=== PATIENT | female | born 1975 | race Caucasian/White ===

== ENCOUNTER 2020-03-05 18:36 | Emergency (ER) | payer MEDICAID, SELFPAY ==
[2020-03-05 18:37] VITALS: BP 138/85; PULSE 87; RESP 22; TEMP 36.9; BMI 37.5
--- NOTE | 2020-03-05 18:52 | CT_ITS ---
STUDY: CT BRAIN WITHOUT CONTRAST REASON FOR EXAM: Female, 44 years old. FALL, LAC TO POSTERIOR HEAD RADIATION DOSAGE (If Supplied By Facility): CTDIvol = ( 44.99 ) mGy, DLP = ( 762.36 ) mGycm TECHNIQUE: Transaxial CT imaging of the brain was performed without administration of intravenous contrast material. Individualized dose optimization techniques were used for this CT. COMPARISON: 08/01/2016. FINDINGS: Normal soft tissue structures. Normal calvarium. There is mild cerebral atrophy with widening of the extra-axial spaces and ventricular dilatation. There are areas of decreased attenuation within the white matter tracts of the supratentorial brain, consistent with microvascular disease changes. There is no intracranial hemorrhage. There are no findings of an acute ischemic infarction. Mild mucosal thickening in the left maxillary sinus. CT/Brain/Head without Contrast IMPRESSION: 1. Mild microvascular ischemic changes. Atrophy. Electronically Signed: Jerrica Perez MD at 20:05 EDT Tel , Service support ,
--- NOTE | 2020-03-05 18:52 | CT_ITS ---
STUDY: CT CERVICAL SPINE WITHOUT CONTRAST REASON FOR EXAM: Female, 44 years old. FALL, LAC TO POSTERIOR HEAD RADIATION DOSAGE (If Supplied By Facility): CTDIvol = ( 28.80 ) mGy, DLP = ( 580.85 ) mGycm TECHNIQUE: High resolution transaxial imaging was performed without contrast material. Sagittal and coronal images were reconstructed. Individualized dose optimization techniques were used for this CT. COMPARISON: None FINDINGS: Normal craniovertebral junction. Normal anterior atlantoaxial articulation. Normal odontoid process. Normal cervical lordosis. Normal vertebral bodies and posterior osseous elements. C2-3: Normal endplates. Normal disc height and morphology. Normal central canal and intervertebral neuroforamina. C3-4: Normal endplates. Normal disc height and morphology. Normal central canal and intervertebral neuroforamina. C4-5: Normal endplates. Normal disc height and morphology. Normal central canal and intervertebral neuroforamina. C5-6: Normal endplates. Normal disc height and morphology. Normal central canal and intervertebral neuroforamina. C6-7: Normal endplates. Normal disc height and morphology. Normal central canal and intervertebral neuroforamina. C7-T1: Normal endplates. Normal disc height and morphology. Normal central canal and intervertebral neuroforamina. Normal visualized soft tissue structures. CT/Spine Cervical without Contras IMPRESSION: Normal unenhanced CT examination of the cervical spine. Electronically Signed: Jerrica Perez MD at 20:31 EDT Tel , Service support ,
[2020-03-05] MEDS: Diphth,Pertuss(Acell),Tet Vac 0.5 ML Vial IM (19:04)
[2020-03-05] MEDS: Lidocaine/Epi/Tetracaine 50 ML 1 APPLIC TOPICAL (19:05)
--- NOTE | 2020-03-05 19:10 | RAD_ITS ---
STUDY: X-RAY - LEFT SHOULDER REASON FOR EXAM: Female, 44 years old. fall in bathroom, left shoulder pain TECHNIQUE: 2 view(s) of the shoulder. COMPARISON: None. FINDINGS: Normal glenohumeral articulation. Normal acromioclavicular joint. Normal acromion. Normal humeral head and visualized proximal humerus. The soft tissue structures are unremarkable. Normal visualized pulmonary apex. RAD/Shoulder min 2 Views IMPRESSION: Normal x-ray examination of the shoulder. Electronically Signed: Jerrica Perez MD at 19:30 EDT Tel , Service support ,
--- NOTE | 2020-03-05 20:36 | ED.VISSUMM ---
- ER Visit Summary Date of Service: 03/05/20 Chief Complaint: Fall History of Present Illness: The patient is a 44 F patient fell at her assisted living when her walker caught on something. She fell backwards and hit her head. She did not lose consciousness. She denies blood thinners. She also reports left shoulder pain. She was having pain before she fell, but it is now worse. Denies weakness or numbness. She is unsure of her tetanus status but does report a laceration to the back of her head. No other injuries or complaints. Physical Examination: Afebrile and vital signs unremarkable. She has a 1 cm laceration to the right occipital parietal scalp. Otherwise head and neck atraumatic. Cranial nerves grossly intact. Heart regular. Lungs clear. Abdomen soft. Extremities atraumatic with good strength, sensation, range of motion. Test Results: CT brain and cervical spine showed chronic changes. Nothing acute. X-ray of her shoulder was unremarkable. Emergency Department Course and Treatment: Tetanus updated. Patient refused kenny. She was treated with topical lidocaine. The wound was irrigated and explored. This was superficial. It was full-thickness however. Closed with 1 simple interrupted suture. Patient was given wound care instructions and will be discharged back to her assisted living. Follow-up in 10 to 14 days for suture removal. Return sooner for any complications or any new issues. Treatment Plan: As above Disposition: Discharge Impression: Close head injury, laceration, simple 1 cm, left shoulder injury This note was generated with [employer] dictation software. It may contain incorrect words, spelling, and punctuation that were not noted in review of the chart prior to signing ED Disposition - Plan for ED Patient: Referrals: Care Physician,No Primary [Primary Care Provider] -
--- NOTE | 2020-03-05 20:39 | ED.DEP ---
ED Disposition - Plan for ED Patient: Instructions: ED Laceration All Closures Additional Instructions: follow up with your doctor in 10-14 days for suture removal. return sooner for any problems
[2020-03-05 21:07] VITALS: BP 129/78; PULSE 79; RESP 17; O2SAT 97
--- NOTE | 2020-03-05 21:12 | ED.RN ---
REPORT GIVEN TO NICKIE JO [facility]
--- OUTSIDE RECORDS SUMMARY | 2020-07-30 14:04 | XMS RPT_ITS | CCD ---
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 administered intrave nously without immediate complication. FINDINGS: LOWER CHEST: Evaluation of the visualized lung bases demonstrates scarrin g and/or atelectasis at the lung bases bilaterally. The heart is with in normal limits for size. ABDOMEN: LIVER: The liver is within normal limits for appearance, without ev idence of focal masses. BILE DUCTS: No definite intra or extrahepatic biliary dilatation is iden tified. GALLBLADDER: The gallbladder is nondilated. No definite calcified gallsto corey are seen. PANCREAS: The pancreas is within normal limits for appearance, without evidence of focal masses. SPLEEN: The spleen is within normal limits for size. No focal spleni c mass is seen. ADRENAL GLANDS: No definite adrenal nodules or masses are seen bilaterally. KIDNEYS AND URETERS: There is no hydronephrosis, hydroureter or renal/ ureteral c alculus identified bilaterally. No definite focal renal mass is seen . PELVIS: BLADDER: The urinary bladder is grossly unremarkable for CT appearanc e. REPRODUCTIVE ORGANS: A T-shaped intrauterine device is identified in situ within the endometrial canal. The uterus and ovaries are otherwise sally sly unremarkable for CT appearance. BOWEL: A LINX device is seen at the gastroesophageal junction. The colon and small bowel are within normal limits for course, caliber and appearance, without evidence of wall thickening or obstructi on. The appendix is decompressed. No CT evidence of acute diverticul itis or appendicitis is seen. VESSELS: The abdominal aorta is within normal limits for course, raul yamilet and appearance, without evidence of aneurysm. PERITONEUM/RETROPERITONEUM/LYMPH NODES: There is no free intraperitoneal air or free fluid identifie d. No gross mesenteric or retroperitoneal lymphadenopathy is ident ified. BONE AND SOFT TISSUE: There is no evidence of acute fracture identified. No eviden ce of abdominal wall mass or hernia is identified. IMPRESSION: 1. Postoperative changes, as above. 2. No evidence of bowel obstruction, free intraperitoneal ai r or abnormal intra-abdominal fluid collection. VALPROIC ACID 80 50 - 100 ug/mL Normal 10-25-2019 [facility] ([id number]) Comment: Performed By: #### VALPR ### [address] [address] us gallbladder on 2 US GALLBLADDER Normal 10-25-2019 [facility] Patient Name: REEMA MOTTA [facility] ([id number]) STUDY: US GALLBLADDER; 10/25/2019 3:58 pm INDICATION: R upper quad pain. COMPARISON: None. ACCESSION NUMBER(S): [id number] ORDERING CLINICIAN: TENISHA LANE TECHNIQUE: Grayscale and color Doppler ultrasound evaluation of the rig ht upper quadrant. FINDINGS: LIVER: Normal size. Increased echogenicity in the liver suggestive of fatty infiltration. Portions of the liver were obscured. GALLBLADDER: No cholelithiasis. No wall thickening or pericholecystic flu id. No focal tenderness is reported during scanning directly over t he gallbladder. BILIARY TREE: No intra- or extrahepatic biliary dilatation. The extrahepat ic bile duct measures 6 mm. PANCREAS: Pancreas or nearly completely obscured by overlying bowel ga s. The unobscured pancreas are negative. RIGHT KIDNEY: Normal size, no hydronephrosis. PERITONEUM: No ascites. IMPRESSION: No gallstones. No intra or extrahepatic biliary ductal dilat ation. Fatty infiltration liver. Portions of the liver were obscure d. Electronically signed by: ROXIE CARDENAS MD urinalysis on 10-25 Appearance (U) Canceled Normal 10-25-2019 [facility] ([id number]) Comment: Order Comment: TEST URINALYS IS WAS CANCELLED, 10/25/2019 18:08 DISCHARGED. Performed By: #### UA ####[place] [id number] ASCORBIC ACID Canceled Normal 10-25-2019 [facility] ([id number]) Comment: Order Comment: TEST URINALYS IS WAS CANCELLED, 10/25/2019 18:08 DISCHARGED. Result Comment: Concentratio ns > = 20 mg/dL of ascorbic acid can be expected to cause strong interference in the reaction s testing for glucose, nitrite and blood. It is recommended to discontinue V itamin C administration and retest in 10 hours. Performed By: #### UA ####[address] [address] Bilirubin (U) [Mass/Vol] Canceled Normal 10-25 [facility] ([id number]) Comment: Order Comment: TEST URINALYS IS WAS CANCELLED, 10/25/2019 18:08 DISCHARGED. Performed By: #### UA ####[address] [address] BLOOD Canceled Normal 10-25-2019 [facility] ([id number]) Comment: Order Comment: TEST URINALYS IS WAS CANCELLED, 10/25/2019 18:08 DISCHARGED. Performed By: #### UA ####[address] [address] Color (U) Canceled Normal 10-25-2019 [facility] ([id number]) Comment: Order Comment: TEST URINALYS IS WAS CANCELLED, 10/25/2019 18:08 DISCHARGED. Performed By: #### UA ####[address] [address] Glucose [Mass/Vol] Canceled Normal 10-25-2019 [facility] ([id number]) Comment: Order Comment: TEST URINALYS IS WAS CANCELLED, 10/25/2019 18:08 DISCHARGED. Performed By: #### UA ####[address] [address] Ketones Ql (U) Canceled Normal 10-25-2019 [facility] ([id number]) Comment: Order Comment: TEST URINALYS IS WAS CANCELLED, 10/25/2019 18:08 DISCHARGED. Performed By: #### UA ####[address] [address] Leukocyte esterase Test Canceled Normal 2019 [facility] strip Ql (U) ([id number]) Comment: Order Comment: TEST URINALYS IS WAS CANCELLED, 10/25/2019 18:08 DISCHARGED. Performed By: #### UA ####[address] [address] Nitrite Ql (U) Canceled Normal 10-25-2019 [facility] ([id number]) Comment: Order Comment: TEST URINALYS IS WAS CANCELLED, 10/25/2019 18:08 DISCHARGED. Performed By: #### UA ####[address] [address] pH (Bld) Canceled Normal 10-25-2019 [facility] ([id number]) Comment: Order Comment: TEST URINALYS IS WAS CANCELLED, 10/25/2019 18:08 DISCHARGED. Performed By: #### UA ####[address] [address] Protein (U) [Mass/Vol] Canceled Normal 020 [facility] ([id number]) Comment: Order Comment: TEST URINALYS IS WAS CANCELLED, 10/25/2019 18:08 DISCHARGED. Performed By: #### UA ####[address] [address] Specific gravity (U) [Rel Canceled Normal [facility] density] ([id number]) Comment: Order Comment: TEST URINALYS IS WAS CANCELLED, 10/25/2019 18:08 DISCHARGED. Performed By: #### UA ####[address] [address] Urobilinogen Qn (U) Canceled Normal 10-25-2019 [facility] ([id number]) Comment: Order Comment: TEST URINALYS IS WAS CANCELLED, 10/25/2019 18:08 DISCHARGED. Performed By: #### UA ####[address] [address] triage - ed on 2019 Triage - ED Quick Triage: Normal 10-25-2019 [facility] Are You no H ealth ([id number]) Have You Given In The Last 6 Weeksno Are You Currently Breastfeedingno Chart Review: CHIEF COMPLAINT REEMA MOTTA is a Female patient with a grace f complaint of abdominal pain (patient complains of right side abdominal pain for 1 day. H as history of gallbladder problems. Patient also had vomiting, denies urin xavier signs/symptoms.). Triage Date/Time: 25-Oct-2019 13:50 Pain Rating (0-10): 9 = Severe Pain location: right abdominal pain Vital Signs: Temperature: 98.9F ( 37.2C) taken oral Blood Pressure: 115/88 Mean: Heart Rate: 99 Respiratory Rate: 16 Pulse Oximetry: 95% on room air, no respiratory suppor t. Height: 4 feet 8.00 inches. 142.2 CM Weight: 150.0 pounds. Calculated 68.0 kg. (stated) Calculated BMI (kg/m2): 33.628 Calculated BSA (m2) 1.64 Codie Coma Scale: Best Eye Response: (E4) spontaneous Best Motor Response: (M6) obeys commands Best Verbal Response: (V5) oriented Prole Score: 15 Cough lasting greater than 3 weeks: no Travel outside of [facility]: no Allergies: yes Patient has homicidal thoughts: no RUSS: 3 Symptoms Are POSITIVE For: vomiting. Symptoms Are Negative For: anorexia, constipation, diaphoresis, diarrhea, distent ion, fever, nausea and rectal blood. Risk Screens Suicide Risk Screen In the Past Month: Have you wished you were or wished y ou could go to sleep and not wake up no In the Past Month: Have you had any actual thoughts of killi ng yourself no In Your Lifetime: Have you ever done anything, started to do anything, or prepared to do anything to end your life no Darby Fall Scale Screening Has the patient fallen before (or is the patient in the ED as a result of a fall) has not had a fall Does the patient have an impaired gait does not have impaire d gait Is the patient cognitively impaired not cognitively impaired Interventions: Darby Fall Interventions: *patient oriented to [employer] dings and call system, * patient/family falls education completed and documented, *patients fall status communicated during bedside handoff, *whiteboard updated, *mode of toileting discussed with patient, *bed in low position with brakes locked, *call light in reach, * non-skid footwear PAIN Pain Scale Used: JANETTE Pain Rating (0-10): 9 = Severe ARRIVAL INFORMATION Means of Arrival: Ambulatory Mode of Arrival: private vehi jordan Arrival From: detention facility Accompanied By: self Language: Spoken Language Preferred: Burundian Reading Language Preferre d: Burundian PRIMARY ASSESSMENT REEMA MOTTA's primary assessment is Within Normal Limits. The airway is open and patent. Breathing spontaneous and unlab ored with clear breath sounds bilaterally. Circulation is normal with good periphera l pulses. Skin is warm and dry and color is normal for race. Past Medical History: Past Medical History Reviewedyes Electronic Signatures: Rosa Bernal (SUPV) (Signed 25-Oct-2019 13:53) Authored: Triage, Past Medical History Last Updated: 25-Oct-2019 13:53 by Rosa Bernal (SUPV) risk screen - adult emergency on 2019-10-25 Risk Screen - Preferred Language: Normal 2019 [facility] Adult Emergency Preferred Language: [facility] Preferred Language for Discussing Health Care (patient/desig nee)Burundian ([id number]) Advanced Directives: Advance Directive/DNRno Family Violence Adult: Abuse Screen: Are you or have you been threatened or abused physically, em otionally, or sexually by anyoneno Learning Assessment (Patient): Learning Assessment (Patient): Patient is Able to be Assessed for Learningyes Factors Influencing Readiness to Learnnone Factors that Impact Ability to Learnnone Devices/Methods Used to Communicatenone Learning Preferencesverbal instruction; written material Cultural Considerationsnone Developmental Considerationsnone Samaritan Considerationsnone Learning Assessment (Other Learner): Learning Assessment (Other Learner): Other learner availableno Pressure Injury/TB/Substance: Pressure Injury: Pressure Injury Present on Admissionno Do you have a coughno Substance Use Current or Former 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: 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, 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, Alcohol, Street Drugs Admission Risk Screen: Significant IndicatorsComplete CAGE: CAGE: Is this an injured patient at a Trauma Center ([facility]/[place]): no Electronic Signatures: Rosa Bernal (SUPV) (Signed 25-Oct-2019 13:54) Authored: Preferred Language, Advanced Directives, Family Vi olence Adult, Learning Assessment (Patient), Learning Assessment (Ot her Learner), Pressure Injury/TB/Substance, CAGE Last Updated: 25-Oct-2019 13:54 by Rosa Bernal (SUPV) red cell morphology on 2019-10-25 RBC morphology finding Nom NORMAL Normal [facility] ([facility]) ([id number]) Comment: Performed By: #### MORP2 ### #[facility] [id number] provider note - ed v2 on 2019-10-25 Provider Note - Provider Note - ED v2: Normal 0 10-25-2019 [facility] ED v2 Chart Review: [facility] ED NOTES ([id number]) ED NOTES: HPI: 44 year old female presents to the ED wi th c/o abdominal pain. Pt sts 24 hours ago she developed RUQ abdominal pain and SOB. Re ports one emesis episode this morning along with dry mouth, a nonprodu ctive cough, and dysuria. Denies fever and CP. ROS: All systems are negative other than as noted in HPI. Physical Exam I have reviewed the triage vital signs. Const: Well nourished, well developed, appears stated age, no acute distress Eyes: PERRL, EOM intact, no conjunctival injection, vision g rossly normal HENT: Neck supple without meningismus , Moist mu cous membranes, no pharyngeal swelling or exudate CV: Regular rate and rhythm, Warm, well- perfused extremities. Chest non tender RESP: Lungs clear bilaterally, Unlabored respiratory effort GI: soft, non-distended, no masses. RUQ tender to palpation. MSK: No gross deformities appreciated Back: Non tender, no pain with ROM Skin: Warm, dry. No rashes Neuro: Alert and oriented x4 , GCS 15 , home service demonstrator II-XII grossly intact. Sensation and motor function of extremities grossly intact. Chronic tremor s. Psych: Appropriate mood and affect. Portions of this note were dictated by s [facility] recognition. An attempt at proof reading was made to minimize errors. Minor errors in transcr iption may be present. Please call if questions. IMesha, am scribing for and in the presence of Heidy DURON. I, Heidy DURON, attests all medical record entri es made by the scribe were under my direction and personally di ctated by me. I have reviewed the chart and agree that the record accurately r eflects my performance of the history, physical, and assessment and plan. I have als o personally directed, reviewed, and agree with the discharge instructions. HISTORY OF PRESENTING ILLNESS REEMA is a 44 year old Female and was seen by me at 25-Oct-2019 13:45 for a chief complaint of abdominal pain (patient complains o f right side abdominal pain for 1 day. Has history of gallbladder problems. Patient also had vomiting, denies urinary signs/symptoms.)(1). Triage Information: Most recent Vital Sign Value Date Temp (F): 98.9 10-25-2019 13:50 Temp (C): 37.2 10-25-2019 13:50 Heart Rate (beats/min): 99 10-25-2019 13:50 Respirations (breaths/min): 16 10-25-2019 13:50 SpO2 (%): 95 10-25-2019 13:50 BP Systolic (mm Hg): 115 10-25-2019 13:50 BP Diastolic (mm Hg): 88 10-25-2019 13:50 PAST MEDICAL HISTORY ATTESTATION: I have reviewed and confirm ed nurse's/medic's notes for patient's medications, allergies, medical history, and surgical histor y ALLERGIES/INTOLERANCES: Allergy Allergen: azithromycin Type: Drug Reaction: Rash Allergen: Phenergan Type: Drug Reaction: Other Allergen: penicillin Type: Drug Reaction: Rash Allergen: erythromycin Type: Drug Reaction: Rash Allergen: penicillin Type: Drug Reaction: Unknown Allergen: morphine Type: Drug Reaction: Unknown Allergen: tramadol Type: Drug Reaction: Unknown Allergen: hydrocodone Type: Drug Reaction: Unknown Intolerance Allergen: Dilantin Type: Drug Reaction: GI Upset Allergen: Zofran Type: Drug Reaction: Dizziness Allergen: Phenergan Type: Drug Reaction: Dizziness Allergen: codeine Type: Drug Reaction: Nausea/Vomiting HEALTH HISTORY: Medical History Name:Seizure Code:R56.9 Name:Hypertension Code:I10 Name:Anxiety Code:F41.9 Name:Congestive heart failure Code:I50.9 OUTPATIENT MEDICATIONS: Home Medications Review Status for R econciliation: Complete Med Status: Patient Currently Takes Medications Drug Name: allopurinol 300 mg oral tablet Instructions: 1 tab(s) orally once a day Drug Name: doxazosin 4 mg oral tablet Instructions: 1 tab(s) orally once a day (at bedtime) Drug Name: hydroCHLOROthiazide 12.5 mg oral tablet Instructions: 1 tab(s) orally once a day Drug Name: Melatonin 3 mg oral tablet Instructions: 1 tab(s) orally once a day (at bedtime) Drug Name: amLODIPine 5 mg oral tablet Instructions: 1 tab(s) orally once a day Drug Name: sertraline 50 mg oral tablet Instructions: 125 milligram(s) orally once a day Drug Name: Calcium 600+D oral tablet Instructions: 1 tab(s) orally 2 times a day Drug Name: Depakote ER 500 mg oral tablet, extended release Instructions: 1 tab(s) orally 2 times a day Drug Name: Keppra 500 mg oral tablet Instructions: 1 tab(s) orally 2 times a day Drug Name: LORazepam 2 mg oral tablet Instructions: 1 tab(s) orally 2 times a day Drug Name: potassium chloride 10 mEq oral capsule, extended release Instructions: 1 cap(s) orally 2 times a day Drug Name: busPIRone 10 mg oral tablet Instructions: 1 tab(s) orally 3 times a day SIGNIFICANT EVENTS: Past Medical History Description:epileptic seizure Description:anxiety Description:major depressive disorder Description:hypertension TRAINING CONSULTANT: Is : no(1) Is : no(1) RESULTS/VITAL SIGNS RESULTS: Recent Lab Results: I have reviewed these laboratory results: Complete Blood Count + Differential 25-Oct-2019 14:29:00 ResultValue White Blood Cell Count 7.6 Nucleated Erythrocyte Count 0.1 Red Blood Cell Count 4.55 HGB 14.0 HCT 41.2 MCV 91 MCHC 33.9 PLT 103 L RDW-CV 14.0 Differential Comment SEE MANUAL DIFF RBC Morphology 25-Oct-2019 14:29:00 ResultValue Red Blood Cell Morphology NORMAL Manual Differential Panel 25-Oct-2019 14:29:00 ResultValue % Seg Neutrophil 47.0 % Band Neutrophil 7.0 % Lymphocyte 37.0 % Monocyte 6.0 % Eosinophil 1.0 % Basophil 1.0 % Metamyelocyte 1.0 Absolute Neutrophil Count (ANC) 4.10 Seg Neutrophil Count 3.57 Band Neutrophil Count 0.53 Lymphocyte, Count 2.81 Monocyte, Count 0.46 Eosinophil, Count 0.08 Basophil, Count 0.08 Metamyelocyte, Count 0.08 A Comprehensive Metabolic Panel 25-Oct-2019 14:28:00 ResultValue Glucose, Serum 96 NA 138 K 3.7 CL 100 Bicarbonate, Serum 28 Anion Gap, Serum 14 BUN 12 CREAT 1.23 H GFR-Non 47 A GFR- 57 A Calcium, Serum 8.7 ALB 4.1 ALKP 56 T Pro 6.3 L T Bili 0.4 Alanine Aminotransferase, Serum 23 Aspartate Transaminase, Serum 24 Lipase, Serum 25-Oct-2019 14:28:00 ResultValue Lipase, Serum 39 HCG, Beta Quantitative 25-Oct-2019 14:28:00 ResultValue HCG, Beta Quantitative <2 Valproic Acid Level, Serum 25-Oct-2019 14:28:00 ResultValue Valproic Acid Level, Serum 80 Radiology Results: Impression: No gallstones. No intra or extrahepatic biliary ductal dilat ation. Fatty infiltration liver. Portions of the liver were obscure d. Ultrasound Gallbladder [Oct 25 2019 4:07PM] Impression: 1. No evidence of acute cardiopulmonary process. No change f rom 03/22/2019 Xray Chest 1 View [Oct 25 2019 2:22PM] VITAL SIGNS: T PRBP SpO2O2(LPM) %FiO2 Method 25-Oct-2019 13:50:00-37.15259262/88 95 room air, no respirat ory support MEDICAL DECISION MAKING/ED COURSE MDM/ED COURSE: 1615- Final results reviewed with cortney mathew who continues to rest comfortably in bed. Workup here has been unremarkable with a negative ultra sound of the gallbladder and normal lab w ork. Chest x-ray was also unremarkable. I discussed with patient the importance of outpatient follow-up with Dr. Feliciano for continued evaluation of her chronic biliary colic. Patient i s stable for discharge back to assisted living where she can follow-up as outpatient. The ultrasound of your gallbladder did not show any sign of gallstones or inflammation of the gallbladder or surrounding ducts. Your lab work was also normal today. As discussed, I do not see an emergent need to discuss your case with our surgeon however I d o recommend that you follow-up with Dr. Lexus Feliciano for continued evaluation of the ongoing bilary colic. Please feel free to return immediately to the nearest ER for any new or worsenin g concerns. CLINICAL IMPRESSION Diagnosis/Annotation: ED Dx Name:Biliary colic Code:K80.50 Dispostion: discharged Type: home ATTESTATION CRITICAL CARE TIME Is this a critically ill patient: no Electronic Signatures: Tenisha Lane I (VEHICLE MECHANIC-PHARMACY CLINICAL COORDINATOR) (Signed 25-Oct-2019 16:25) Authored: Provider Note - ED v2 Mesha Marley (Scribe) (Entered 25-Oct-2019 14:11) Entered: Provider Note - ED v2 Last Updated: 25-Oct-2019 16:[address] I (VEHICLE MECHANIC-PHARMACY CLINICAL COORDINATOR) References: 1. Data Referenced From Triage - ED 25-Oct-2019 13:50 manual differential on 2019-10-25 % EOSINOPHIL 1.0 0.0 - 6.0 % Normal 10-25-2019 [facility] (07405) Comment: Performed By: #### MDIFF ### [address] [address] % METAMYELOCYTE 1.0 0.0 - 0.0 % Normal 10-25-2019 [facility] (25702) Comment: Performed By: #### MDIFF ### [address] [address] % SEG NEUTROPHIL 47.0 40.0 - 80.0 % Normal 10-25-2019 [facility] (07432) Comment: Result Comment: Percent diff erential counts (%) should be interpreted in the context of the absolute cell counts (cells/L). Performed By: #### MDIFF ### [address] [address] ANC 4.10 1.20 - 7.70 x10E9/L Normal 10-25-2019 [facility] (81161) Comment: Performed By: #### MDIFF ### [address] [address] Band form neutrophils/100 WBC 7.0 0.0 - 5.0 % Normal 10-25-2019 [facility] ([facility] (00 000) Comment: Performed By: #### MDIFF ### [address] [address] BAND NEUTROPHIL 0.53 0.00 - 0.70 x10E9/L Normal 10-25-2019 [facility] (04504) Comment: Performed By: #### MDIFF ### [address] [address] BASOPHIL 0.08 0.00 - 0.10 x10E9/L Normal 10-25-2019 [facility] (88729) Comment: Performed By: #### IFF ### [address] [address] Basophils/100 WBC (Bld) 1.0 0.0 - 2.0 % Normal 2019 [facility] (74623) Comment: Performed By: #### MDIFF ### [address] [address] EOSINOPHIL 0.08 0.00 - 0.70 x10E9/L Normal 10-25-2019 [facility] (96843) Comment: Performed By: #### IFF ### [address] [address] LYMPHOCYTE 2.81 1.20 - 4.80 x10E9/L Normal 10-25-2019 [facility] (75427) Comment: Performed By: #### IFF ### [address] [address] Lymphocytes/100 WBC (Bld) 37.0 13.0 - 44.0 % Normal [facility] (00 000) Comment: Performed By: #### MDIFF ### [address] [address] Metamyelocytes/100 WBC 0.08 0.00 - 0.00 x10E9/L Abnormal 10-25 [facility] (74561) Comment: Performed By: #### IFF ### [address] [address] MONOCYTE 0.46 0.10 - 1.00 x10E9/L Normal 10-25-2019 [facility] (53429) Comment: Performed By: #### MDIFF ### [address] [address] Monocytes/100 WBC (Bld) 6.0 2.0 - 10.0 % Normal 10-25 [facility] (97811) Comment: Performed By: #### IFF ### [address] [address] SEG NEUTROPHIL 3.57 1.20 - 7.00 x10E9/L Normal 10-25-2019 [facility] (84748) Comment: Performed By: #### MDIFF ### [address] [address] lipase on 8 Lipase [Catalytic 39 9 - 82 U/L Normal 10-25-2019 [facility] activity/Vol] [facility] (42919) Comment: Result Comment: Venipuncture immediately after or during the administration of Metamizole may lead to falsely low results. Testing should be performed immediately prior to Metamizole dosing. Z-rfywlx-h-benzoquinone imin e (metabolite of Acetaminophen) will generate erroneously lo w results in samples for patients that have taken toxic doses of acetaminophen. Performed By: #### LIPAS ### [address] [address] hcg,beta-quant on 2 HCG,BETA-QUANT <2 Normal 10-25-2019 [facility] (20428) Comment: Result Comment: Low-level po sitive HCG results can be seen in early , in monserrat- or post-menopausal fem ales due to normal pituitary HCG production, or with analytic interference. Repeat testing in 48-72 hours can aid in assessing f or as results should double in this time period. FSH kiki surement is recommended in monserrat- or post-menopausal females as c oncurrent elevation of FSH can support pituitary production as the source of the HCG elevation. . Total HCG measurement is per formed using the Naomi Michael Access Immunoassay which detects in tact HCG and free beta HCG subunit. This test is not indicated f or use as a tumor marker. HCG testing is performed usi ng a different test methodology at [facility] than other [facility]. Direct result comparison should only be made within t he same method. REF VALUES NON FEMALE <5 MALES <5 Performed By: #### HCGQU ### [address] [address] comprehensive panel on 2019-10-25 Albumin [Mass/Vol] 4.1 3.4 - 5.0 g/dL Normal 10-25-2019 [facility] (58161) Comment: Performed By: #### CMP ####S [address] [address] ALP [Catalytic activity/Vol] 56 33 - 110 U/L Normal 0 10-25-2019 [facility] (00 000) Comment: Performed By: #### CMP ####S [address] [address] ALT [Catalytic activity/Vol] 23 7 - 45 U/L Normal 0 10-25-2019 [facility] (00 000) Comment: Result Comment: Patients graciela ated with Sulfasalazine may generate falsely decreased results fo r ALT. Performed By: #### CMP ####S [address] [address] Anion gap [Moles/Vol] 14 10 - 20 mmol/L Normal 10-25-19 20 [facility] (08588) Comment: Performed By: #### CMP ####S [address] [address] AST [Catalytic activity/Vol] 24 9 - 39 U/L Normal 0 10-25-2019 [facility] (00 000) Comment: Performed By: #### CMP ####S [address] [address] Bilirubin [Mass/Vol] 0.4 0.0 - 1.2 mg/dL Normal 0 [facility] (69279) Comment: Performed By: #### CMP ####S [address] [address] Calcium [Mass/Vol] 8.7 8.6 - 10.3 mg/dL Normal 10-25-2019 [facility] (03158) Comment: Performed By: #### CMP ####S [address] [address] Chloride [Moles/Vol] 100 98 - 107 mmol/L Normal 0 [facility] (19324) Comment: Performed By: #### CMP ####S [address] [address] Creatinine [Mass/Vol] 1.23 0.50 - 1.05 mg/dL High 2019 [facility] (00 000) Comment: Performed By: #### CMP ####S [address] [address] GFR- AM. 57 >60 mL/min/1.73m2 Abnormal 10-25-2019 [facility] (54254) Comment: Result Comment: CALCULATIONS OF ESTIMATED GFR ARE PERFORMED USING THE MDRD STUDY EQUATIO N FOR THE IDMS-TRACEABLE CREATININE ME THODS. CLIN CHEM 2007;53:766-72 Performed By: #### CMP ####S [address] [address] GFR-NON AM. 47 >60 mL/min/1.73m2 Abnormal 2019 [facility] (00 000) Comment: Performed By: #### CMP ####S [address] [address] Glucose [Mass/Vol] 96 74 - 99 mg/dL Normal 10-25-2019 [facility] (95636) Comment: Performed By: #### CMP ####S [address] [address] HCO3 (Bld) [Moles/Vol] 28 21 - 32 mmol/L Normal 020 [facility] (62273) Comment: Performed By: #### CMP ####[address] [address] Potassium [Moles/Vol] 3.7 3.5 - 5.3 mmol/L Normal 10-25-19 20 [facility] (00 000) Comment: Performed By: #### CMP ####[address] [address] Protein [Mass/Vol] 6.3 6.4 - 8.2 g/dL Low 10-25-2019 [facility] (86635) Comment: Performed By: #### CMP ####S [address] [address] Sodium [Moles/Vol] 138 136 - 145 mmol/L Normal 10-25-2019 [facility] (98925) Comment: Performed By: #### CMP ####[address] [place] [id number] Urea nitrogen [Mass/Vol] 12 6 - 23 mg/dL Normal 10-25 [facility] (08924) Comment: Performed By: #### CMP ####[address] [place] [address] clinical intervention - pharmacy on 2019-10-25 Clinical Pharmacist's Clinical Intervention: Norm al 10-25-2019 [facility] - Active and Pending Medications: [facility] Morphine Injectable, DOSE = 4 mg IntraVenous Push Once, 25-Oct-2019, Active (07470) Pharmacist intervention: Contacted nurse Type of recommendation: ADR or allergy identification, pt un known rxn to morphine - morphine ordered with alert that prescriber saw a llergy ok to proceed - contacted ER nurse - she will verify r eaction with patient prior to administering dose Is this intervention medication reconciliation related: No Expected outcome and basis: Prevention of ADR/Error/Toxicity Time Required: 1 - 5 minutes Electronic Signatures: Odilia Holcomb ([facility]) (Signed 25-Oct-2019 14:15) Authored: Pharmacist's Clinical Intervention Last Updated: 25-Oct-2019 14:15 by Odilia Holcomb ([facility]) chest 1 view on CHEST 1 VIEW Normal 10-25-2019 [id number]Y: CHEST 1 VIEW; 10/25/2019 2:12 pm INDICATION: shorntess of breath. COMPARISON: 03/22/2019 ACCESSION NUMBER(S): [id number] ORDERING CLINICIAN: TENISHA LANE FINDINGS: CHEST AP PORTABLE UPRIGHT CARDIOMEDIASTINAL SILHOUETTE: Cardiomediastinal silhouette is normal in size and configura tion. LUNGS: Lungs are clear. ABDOMEN: No remarkable upper abdominal findings. Hiatal hernial repai r surgery changes are seen, with a ring at the GE junction BONES: No acute osseous changes. IMPRESSION: 1. No evidence of acute cardiopulmonary process. No change f rom 03/22/2019 Electronically signed by: SHERYL CORTEZ MD cbc and differential on 2019-10-25 Erythrocyte distribution 14.0 11.5 - 14.5 % Normal [facility] width (RBC) [Ratio] [facility] (57646) Comment: Performed By: #### CBCDF ### [address] [address] Hematocrit (Bld) [Volume 41.2 36.0 - 46.0 % Normal [facility] fraction] [facility] (00 000) Comment: Performed By: #### CBCDF ### [address] [address] Hemoglobin (Bld) 14.0 12.0 - 16.0 g/dL Normal 10-25-2019 [facility] [Mass/Vol] [facility] (0 0000) Comment: Performed By: #### CBCDF ### [address] [address] MCHC (RBC) [Mass/Vol] 33.9 32.0 - 36.0 g/dL Normal 2019 [facility] (00 000) Comment: Performed By: #### CBCDF ### [address] [address] MCV (RBC) [Entitic vol] 91 80 - 100 fL Normal 2019 [facility] (90010) Comment: Performed By: #### CBCDF ### [address] [address] Nucleated RBC/100 WBC 0.1 /100 WBC Normal 10-25-19 [facility] (Bld) [Ratio] (15711 ) Comment: Performed By: #### CBCDF ### [address] [address] Platelets (Bld) [#/Vol] 103 150 - 450 x10E9/L Low 2019 [facility] (00 000) Comment: Performed By: #### CBCDF ### [address] [address] RBC (Bld) [#/Vol] 4.55 4.00 - 5.20 x10E12/L Normal 10-25-2019 [facility] (00 000) Comment: Performed By: #### CBCDF ### [address] [address] WBC (Bld) [#/Vol] 7.6 4.4 - 11.3 x10E9/L Normal 10-25-2019 [facility] (84133) Comment: Performed By: #### CBCDF ### [address] [address] DIFFERENTIAL SEE MANUAL DIFF Normal 10-25-2019 [facility] (36174) Comment: Performed By: #### CBCDF ### [address] [address] central supply technician - procedure visit on 2019-09-25 TRAINING CONSULTANT - Chief Complaint Normal 09-25-2019 [facility] Procedure Visit (000 00) PT HERE TODAY FOR IUD REMOVAL AND INSERTION OF MIRENA OFFICE SUPPLY. [facility]: [id number] EXP: 06/2021 LOT# [id number] History of Present Illness 44-year-old with abnormal ut erine bleeding malpositioned IUD presents for removal every insertion of the IUD. Patient is no acute concerns Review of Systems Constitutional: No fevers, chills Eye:no vision changes Respiratory: no SOB Cardiovascular: no chest pain Gastrointestinal: No nausea, vomiting, diarrhea, constipation, abdominal pain Genitourinary:no dysuria Gynecology: See HPI Active Problems Hypertension (401.9) (I10) Malpositioned IUD (996.76) (T83.32XA) Pelvic pain in female (625.9) (R10.2) Seizure (780.39) (R56.9) Past Medical History History of Hepatic Failure (570) Based on patient's description. Now resolved. History of anemia (V12.3) (Z86.2) now resolved History of anxiety (V11.8) (Z86.59) History of blood transfusion (V15.89) (Z92.89) History of chronic kidney disease (V13.09) (Z87.448) Cr wsa 1.5 on 11/13/2014 History of congestive heart failure (V12.59) (Z86.79) History of hypertension (V12.59) (Z86.79) History of seizure (V12.49) (Z87.898) History of vaginal delivery (V13.29) 09/15/1997; 34 WEEKS; FEMALE; 4LBS 3OZ History of Menarche (V21.8) History of Pap test, as part of routine gynecological examination (V76.2) (Z01.419) 09/30/17NIL History of Renal failure (586) (N19) Based on patient's description. Now resolved. Surgical History History of Breast reduction History of Breast Surgery Reduction Procedure Family History Family history of cardiac disorder (V17.49) (Z82.49) Family history of diabetes mellitus (V18.0) (Z83.3) Family history of hypertension (V17.49) (Z82.49) Family history of hypothyroidism (V18.19) (Z83.49) Family history of Hypothyroidism Family history of Chronic Obstructive Pulmonary Disease Family history of Diabetes Mellitus (V18.0) mother Family history of Epilepsy And Recurrent Seizures (V17.2) Sister has absence seizures and GTC seizures Family history of Hypothyroidism Family history of Reported Family History Of Heart Disease Family history of Systemic Lupus Erythematosus Social History Does not use illicit drugs (V49.89) (Z78.9) Marital History - (V61.03) Never a smoker Never Drank Alcohol Never smoker No alcohol use Unemployed Allergies Azithromycin TABS Recorded By: Salma Montgomery; 05/31/2013 9:56:09 AM Codeine Derivatives Recorded By: Salud Christianson; 05/31/2013 11:58:04 AM Erythromycin Base TABS Recorded By: Salud Christianson; 05/31/2013 11:58:04 AM Penicillins Recorded By: Salma Montgomery; 05/31/2013 9:56:09 AM Phenergan TABS Recorded By: Salma Montgomery; 05/31/2013 9:56:09 AM Current Meds Acetaminophen 500 MG Oral Tablet; Therapy: (Recorded:07Aug2019) to Recorded Dispense: 0 Days ; #: Suffic ient; Refill: 0; SHARLENE = N; Record; Last Updated By: Minerva Hauser; 08/07/2019 10:46:04 AM Albuterol Sulfate HFA 108 (9 0 Base) MCG/ACT Inhalation Aerosol Solution; INHALE 2 PUFFS BY MOUTH 4 TIMES A DAY NEEDED FOR WHEEZING; Therapy: 21Dec2018 to Recorded Rx By: MARICEL; Dispense: 30 D ays ; #:9; Refill: 0; SHARLENE = N; Record; Last Updated By: Minerva Hauser; 08/07/2019 10:46:04 AM Allopurinol 300 MG Oral Tablet; Therapy: (Recorded:07Aug2019) to Recorded Dispense: 0 Days ; #: Suffic ient; Refill: 0; SHARLENE = N; Record; Last Updated By: Minerva Hauser; 08/07/2019 10:46:04 AM busPIRone HCl - 5 MG Oral Tablet; TAKE 1 TABLET BY MOUTH SAIRA RY 8 HOURS NEEDED; Therapy: 09Feb2019 to Recorded Rx By: KEYSHA; Dispense: 30 D ays ; #:90; Refill: 0; SHARLENE = N; Record; Last Updated By: Minerva Hauser; 08/07/2019 10:46:04 AM Depakote 500 MG Oral Tablet Delayed Release; TAKE 1 TABLET T WICE DAILY; Therapy: [id number] to Recorded Dispense: 0 Days ; #: Suffic ient Tablet Delayed Release; Refill: 0; SHARLENE = Y; Record; Last Updated By: Salma Montgomery; 05/31/2013 9:56:09 AM Depakote ER 500 MG Oral Tablet Extended Release 24 Hour; TRINIDAD E 1 TABLET BY MOUTH TWICE A DAY; Therapy: 13Jul2018 to Recorded Rx By: KEYSHA; Dispense: 30 D ays ; #:60; Refill: 0; SHARLENE = N; Record; Last Updated By: Minerva Hauser; 08/07/2019 10:46:04 AM Doxazosin Mesylate 4 MG Oral Tablet; TRINIDAD E 1 (ONE) TABLET (4 MG TOTAL) BY MOUTH NIGHTLY ; Therapy: 25Oct2018 to Recorded Rx By: SPRING; Dispense: 30 Days ; #:30; Refill: 0; SHARLENE = N; Record; Last Updated By: Minerva Hauser; 08/07/2019 10:53:56 AM Famotidine 40 MG Oral Tablet; TAKE 1 (ONE) TABLET (40 MG TOT AL) BY MOUTH DAILY; Therapy: [id number] to Recorded Rx By: MENDY; Dispense: 30 D ays ; #:30; Refill: 0; SHARLENE = N; Record; Last Updated By: Minerva Hauser; 08/07/2019 10:53:56 AM Keppra 1000 MG Oral Tablet; TAKE 1 TABLET TWICE DAILY; Therapy: 61Hts5312 to Recorded Dispense: 0 Days ; #:60 Tabl et; Refill: 0; SHARLENE = Y; Record; Last Updated By: Salma Montgomery; 05/31/2013 9:56:09 AM Keppra 750 MG Oral Tablet; TAKE 1 TABLET BY MOUTH TWICE A DA Y; Therapy: 53Uix6056 to Recorded Rx By: KEYSHA; Dispense: 30 D ays ; #:60; Refill: 0; SHARLENE = N; Record; Last Updated By: Minerva Hauser; 08/07/2019 10:53:56 AM Lisinopril 30 MG Oral Tablet; Therapy: (Recorded:07Aug2019) to Recorded Dispense: 0 Days ; #: Suffic ient; Refill: 0; SHARLENE = N; Record; Last Updated By: Minerva Hauser; 08/07/2019 10:53:56 AM Lisinopril 40 MG Oral Tablet; TAKE 1 TABLET DAILY DIRECTE D; Therapy: 87Vko7678 to Recorded Dispense: 0 Days ; #:30 Tabl et; Refill: 0; SHARLENE = N; Record; Last Updated By: Salma Montgomery; 05/31/2013 9:56:09 AM LORazepam 1 MG Oral Tablet; TAKE 1 TABLET BY MOUTH FOUR TIME S A DAY; Therapy: 84Yrc3940 to Recorded Rx By: KEYSHA; Dispense: 30 D ays ; #:120; Refill: 0; SHARLENE = N; Record; Last Updated By: Minerva Hauser; 08/07/2019 10:53:56 AM LORazepam 1 MG Oral Tablet; TAKE 1 TABLET EVERY 6 TO 8 HOURS NEEDED; Therapy: 24Dow2147 to Recorded Dispense: 0 Days ; #: Suffic ient Tablet; Refill: 0; SHARLENE = N; Record; Last Updated By: Salma Montgomery; 05/31/2013 9:56:09 AM Melatonin 3 MG Oral Capsule; Therapy: (Recorded:07Aug2019) to Recorded Dispense: 0 Days ; #: Suffic ient; Refill: 0; SHARLENE = N; Record; Last Updated By: Minerva Hauser; 08/07/2019 10:53:56 AM Mirtazapine 30 MG Oral Tablet; TAKE 1 TABLET BY MOUTH EVERY DAY AT SUPPER TIME; Therapy: 17Cob1843 to Recorded Rx By: KEYSHA; Dispense: 30 D ays ; #:30; Refill: 0; SHARLENE = N; Record; Last Updated By: Minerva Hauser; 08/07/2019 10:53:56 AM Potassium Chloride ER 10 MEQ Oral Capsule Extend ed Release; TAKE 1 CAPSULE BY MOUTH TWICE A DAY; Therapy: 43Bds7354 to Recorded Rx By: MENDY; Dispense: 30 D ays ; #:60; Refill: 0; SHARLENE = N; Record; Last Updated By: Minerva Hauser; 08/07/2019 10:53:56 AM Therems-H Oral Tablet; TAKE 1 TABLET DAILY; Therapy: 76Kmf2613 to Recorded Dispense: 0 Days ; #:30 Tabl et; Refill: 0; SHARLENE = N; Record; Last Updated By: Salma Montgomery; 05/31/2013 9:56:09 AM Vitals Vital Signs Recorded: 13Ggi5436 10:03AM Qdxlqhey472 Kmtuawwqi92 Height4 ft 8 in Ilqwhs491 lb BMI Vcpykcyflq75.01 BSA Calculated1.67 Physical Exam General: None acute distress Eye: Intraocular movements are intact HEENT: Normocephalic Respiratory: Respirations are nonlabored Gastrointestinal: Nondistended Musculoskeletal: Normal range of motion Neurologic: Alert and oriented x3 Psychiatric: Cooperative appropriate mood and affect. Procedure IUD Removal Procedure: removal of Mirena IUD. Indications for the procedur e include abnormal uterine bleeding and Mapositioned. Risks, benefits and alternat ramona were discussed with the patient. Written consent was obtained prior to the procedure and is detailed in the patient's record. Procedure Note: IUD removed without difficulty. Post-Procedure: Patient Status: the patient tolerated the procedure well. Complications: there were no complications. Patient Instructions: contraception plans discussed (See Ord ers Section). Procedure: Mirena (IUD) placement. IUD Insertion Indications: menorrhagia. Risks, benefits and alternat ramona were discussed with the patient. We discussed possible complications and risks, including infection, bleeding, pelvic pain, expulsion, failure, uterine perforation and i ncreased risk of ectopic michelle uld occur. Written consent was obtained prior to the procedure and is detailed in the patient's record. Neisseria gonorrhoeae and Chlamydia trachomatis testing were not performed. a test was not performed. Placed after removal of Mirena. Procedure Note: Anesthesia: none. The cervix was stabilized wi th. Allis clamp placed anteriorly. The cervix required no dilation. The uterus was in mid position and sounded to 7.5. The Mirena IUD was loaded into scada technician and introduced using appropriate technique. Strings trimmed to 2.5 from ext ernal os. Post-Procedure: Patient Status: the patient tolerated the procedure well. Complications: there were no complications. Follow up: return for follow up visit in 1-2 months. Diagnoses/Problems Encounter for removal and re insertion of intrauterine contraceptive device (IUD) (V25.13) (Z30.433) Malpositioned IUD (996.76) (T83.32XA) Orders Encounter for removal and re insertion of intrauterine contraceptive device (IUD) Follow-up visit in 1 month Outpatient Follow-up Status: Hold For - Scheduling Requested for: [id number] Ordered Stat;For: Encounter for removal and reinsertion of intrauterine contraceptive device (IUD); Ordered By: Anel Morgan Performed: Due: 12Fey3327 Malpositioned IUD Administered: Mirena (52 MG) 20 MCG/24HR Intrauterine Intrau terine Device Rx By: Anel Morgan;For: Mal positioned IUD; Dose of 1 UNIT; Intrauterine; SHARLENE = N; Administered: 09/25/2019 12:00:00 AM Provider Impressions 1) malpositioned IUD- patien t was having abnormal bleeding and ultrasound abnormally placed IUD. IUD was removed today and the new Mirena was inserted without difficulty as noted above. Precautions revi ewed. Plan for string check in 4 weeks. Patient voiced under standing. Signatures Electronically signed by : Anel Morgan DO; Sep 25 2019 4:33P M EST (Author) triage - ed on 2018 Triage - ED Quick Triage: Normal 09-07-2019 [facility] Are You no H ealth ([id number]) Have You Given In The Last 6 Weeksno Are You Currently Breastfeedingno Chart Review: CHIEF COMPLAINT REEMA MOTTA is a Female patient with a grace f complaint of abdominal pain (patient complains of right upper quadrant that started yesterday with nausea and one episode of diarrhea last night, rates pain 10/10). Triage Date/Time: 07-Sep-2019 19:17 Pain Rating (0-10): 10 = Severe Pain location: right upper quadrant abdomen Vital Signs: Temperature: 98.7F ( 37.1C) taken oral Blood Pressure: 108/64 Mean: Heart Rate: 98 Respiratory Rate: 17 Pulse Oximetry: 93% on room air, no respiratory suppor t. Height: 4 feet 8.00 inches. 142.2 CM Weight: 169.0 pounds. Calculated 76.6 kg. (stated) Calculated BMI (kg/m2): 37.881 Calculated BSA (m2) 1.74 Codie Coma Scale: Best Eye Response: (E4) spontaneous Best Motor Response: (M6) obeys commands Best Verbal Response: (V5) oriented Codie Score: 15 Cough lasting greater than 3 weeks: no Travel outside of [facility]: no Allergies: yes Patient has homicidal thoughts: no RUSS: 3 Symptoms Are POSITIVE For: diarrhea and nausea. Risk Screens Suicide Risk Screen In the Past Month: Have you wished you were or wished y ou could go to sleep and not wake up no In the Past Month: Have you had any actual thoughts of killi ng yourself no In Your Lifetime: Have you ever done anything, started to do anything, or prepared to do anything to end your life no Darby Fall Scale Screening Has the patient fallen before (or is the patient in the ED as a result of a fall) has had a fall Does the patient have an impaired gait does not have impaire d gait Is the patient cognitively impaired not cognitively impaired Darby Fall Scale History of falling (immediate or previous) yes (25) Secondary Diagnosis yes (15) Intravenous Therapy/ Heparin/Saline Lock no (0 Gait/Transferring weak (10) Ambulatory Aids none/bedrest/nurse assist (0) Mental Status oriented to own ability (0) Adrby Fall Risk Score: 50 Interventions: High Risk > 45 interventions: bed in low positio n with brakes locked and side rails up, call light provided to patient, comple te hourly rounding on patient for safety and if able, patient will ambulate with assistance PAIN Pain Scale Used: JANETTE Pain Assessment: Right:, abdomen and sharp Pain Rating (0-10): 10 = Severe ARRIVAL INFORMATION Means of Arrival: stretcher Mode of Arrival: ambulance Agency: [facility] ([facility]) Arrival From: assisted living facility ([facility]) Accompanied By: self Language: Spoken Language Preferred: Burundian Reading Language Preferre d: Burundian Agriculture Research Director Requested: no cnc mill programmer was requested MDRO: History of MDRO: no Present on Arrival: Device Present on Arrival to ED: no Pressure Ulcer Present on Arrival to ED: no TREATMENT PRIOR TO ARRIVAL EMS REPORTED VITAL SIGNS Blood Pressure: 122/65 Mean: Respiratory Rate: 18 Pulse Oximetry: 96% Blood Glucose: 125mg/dl PRIMARY ASSESSMENT REEMA MOTTA's primary assessment is Within Normal Limits. The airway is open and patent. Breathing spontaneous and unlab ored with clear breath sounds bilaterally. Circulation is normal with good periphera l pulses. Skin is warm and dry and color is normal for race. TRAVEL HISTORY Travel Exposure History: NO travel to International lo cations in the past 30 days Past Medical History: Past Medical History Reviewedyes Electronic Signatures: Maria Elena Kramer (JOHN) (Signed 07-Sep-2019 19:27) Authored: Triage, Past Medical History Last Updated: 07-Sep-2019 19:27 by Maria Elena Kramer (JOHN) risk screen - adult emergency on 2019-09-07 Risk Screen - Preferred Language: Normal 2018 [facility] Adult Emergency Preferred Language: [facility] Preferred Language for Discussing Health Care (patient/desjose nedarrell)Burundian ([id number]) Advanced Directives: Advance Directive/DNRno Advance Directive Information Giveninformation requested jeferson bartholomew Social Work Family Violence Adult: Abuse Screen: Are you or have you been threatened or abused physically, em otionally, or sexually by anyoneno Learning Assessment (Patient): Learning Assessment (Patient): Patient is Able to be Assessed for Learningyes Factors Influencing Readiness to Learninterest in learning; pain Factors that Impact Ability to Learnnone Devices/Methods Used to Communicatenone Learning Preferencesverbal instruction Cultural Considerationsnone Developmental Considerationsnone Samaritan Considerationsnone Learning Assessment (Other Learner): Learning Assessment (Other Learner): Other learner availableno Pressure Injury/TB/Substance: Pressure Injury: Pressure Injury Present on Admissionno Do you have a coughno Substance Use Current or Former 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: 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, 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, Alcohol, Street Drugs Admission Risk Screen: Significant IndicatorsComplete CAGE: CAGE: Is this an injured patient at a Trauma Center ([facility]/[place]): no Electronic Signatures: Maria Elena Kramer (JOHN) (Signed 07-Sep-2019 19:29) Authored: Preferred Language, Advanced Directives, Family Vi olence Adult, Learning Assessment (Patient), Learning Assessment (Ot her Learner), Pressure Injury/TB/Substance, CAGE Last Updated: 07-Sep-2019 19:29 by Maria Elena Kramer (JOHN) red cell morphology on 2019-09-07 RBC morphology finding Nom NORMAL Normal [facility] ([facility]) ([id number]) Comment: Performed By: #### HH #### [id number] [place] [address] provider note - ed v2 on 2019-09-07 Provider Note - Provider Note - ED v2: Normal 1 11-07-2018 [facility] ED v2 Chart Review: [facility] ED NOTES (81730) ED NOTES: The patient was sent from the half-way because of abdomi nal pain. She states that since yesterday morning she has had a constant sharp moderate right upper quadrant pain that aguero s not radiate. This is aggravated by eating. She is not known to have gallbladder disease bu t states that a sister and father have had cholecystectomy. She den ies fever or vomiting. She has a history of seizure disorder and anxiety HISTORY OF PRESENTING ILLNESS REEMA is a 43 year old Female and was seen by me at 07-Sep-2019 19:23 for a chief complaint of abdominal pain (patient complains o f right upper quadrant that started yesterday with nausea and one episode of diarrh ea last night, rates pain 10/10)(1). Triage Information: Most recent Vital Sign Value Date Temp (F): 98.7 09-07-2019 19:17 Temp (C): 37.1 09-07-2019 19:17 Heart Rate (beats/min): 98 09-07-2019 19:17 Respirations (breaths/min): 17 09-07-2019 19:17 SpO2 (%): 93 09-07-2019 19:17 BP Systolic (mm Hg): 108 09-07-2019 19:17 BP Diastolic (mm Hg): 64 09-07-2019 19:17 PAST MEDICAL HISTORY ATTESTATION: I have reviewed and confirm ed nurse's/medic's notes for patient's medications, allergies, medical history, and surgical histor y ALLERGIES/INTOLERANCES: Allergy Allergen: azithromycin Type: Drug Reaction: Rash Allergen: Phenergan Type: Drug Reaction: Other Allergen: penicillin Type: Drug Reaction: Rash Allergen: erythromycin Type: Drug Reaction: Rash Allergen: penicillin Type: Drug Reaction: Unknown Allergen: morphine Type: Drug Reaction: Unknown Allergen: tramadol Type: Drug Reaction: Unknown Allergen: hydrocodone Type: Drug Reaction: Unknown Intolerance Allergen: Dilantin Type: Drug Reaction: GI Upset Allergen: Zofran Type: Drug Reaction: Dizziness Allergen: Phenergan Type: Drug Reaction: Dizziness Allergen: codeine Type: Drug Reaction: Nausea/Vomiting HEALTH HISTORY: Medical History Name:Seizure Code:R56.9 Name:Hypertension Code:I10 Name:Anxiety Code:F41.9 Name:Congestive heart failure Code:I50.9 OUTPATIENT MEDICATIONS: Home Medications Review Status for R econciliation: Incomplete Med Status: Incomplete Medication History Drug Name: lisinopril 40 mg oral tablet Instructions: 1 tab(s) orally once a day Drug Name: hydrocodone Instructions: milligram(s) orally every 12 hours, As Needed Drug Name: Depakote 250 mg oral delayed release tablet Instructions: 3 tab(s) orally 2 times a day Drug Name: Klonopin 1 mg oral tablet Instructions: 1 tab(s) orally every 8 hours Drug Name: LORazepam 1 mg oral tablet Instructions: orally 4 times a day, As Needed Drug Name: albuterol Instructions: 2 puff(s) inhaled 4 times a day SIGNIFICANT EVENTS: Past Medical History Description:epileptic seizure Description:anxiety Description:major depressive disorder Description:hypertension TRAINING CONSULTANT: Is : no(1) Is : no(1) REVIEW OF SYSTEMS All other systems reviewed and are negative PHYSICAL EXAM CONSTITUTIONAL: Chronically ill-appearing middle-age f emale in mild distress EYES: No conjunctival injection or pallor CARDIOVASCULAR: Normal rate, regular rhythm. Heart melissa nds S1, S2. No murmurs RESPIRATORY: Breath sounds clear and equal bilaterally. GASTROINTESTINAL: Moderate right upper q uadrant tenderness without guarding or rebound MUSCULOSKELETAL: No pedal edema or calf tenderness NEUROLOGICAL: Alert, speech is slightly dysarthric but lauren nt and comprehension are normal. Normal motor function. She has an occasional tremor which she can stop voluntarily SKIN: Skin normal color for race, warm, dry and intact . PSYCHIATRIC: Anxious MEDICAL DECISION MAKING/ED COURSE MDM/ED COURSE: Labs are unremarkable. I performed a bedside ultrasound. T he gallbladder is contracted and because of her body habitus the exam is not helpful. She will need to return to have a outpatient gallbladder ultras ound. I see no sign of cholecystitis or choledocholithiasis. CLINICAL IMPRESSION Diagnosis/Annotation: ED Dx Name:Acute abdominal pain in right upper quadrant Code:R10.11 Dispostion: discharged Type: [facility] facility ATTESTATION CRITICAL CARE TIME Is this a critically ill patient: no Electronic Signatures: Nicko Cortez) (Signed 07-Sep-2019 21:48) Authored: Provider Note - ED v2 Last Updated: 07-Sep-2019 21:48 by Nicko Cortez) References: 1. Data Referenced From Triage - ED 07-Sep-2019 19:17 manual differential on 2019-09-07 % EOSINOPHIL 0.0 0.0 - 6.0 % Normal 09-07-2019 [facility] ([id number]) Comment: Performed By: #### HH #### [address] [address] % SEG NEUTROPHIL 65.0 40.0 - 80.0 % Normal 09-07-2019 [facility] ([id number]) Comment: Result Comment: Percent diff erential counts (%) should be interpreted in the context of the absolute cell counts (cells/L). Performed By: #### HH #### [address] [address] ANC 3.90 1.20 - 7.70 x10E9/L Normal 09-07-2019 [facility] (70757) Comment: Performed By: #### HH #### [address] [address] BAND NEUTROPHIL 0.06 0.00 - 0.70 x10E9/L Normal 09-07-2019 [facility] ([id number]) Comment: Performed By: #### HH #### [address] [address] BASOPHIL 0.00 0.00 - 0.10 x10E9/L Normal 09-07-2019 [facility] ([id number]) Comment: Performed By: #### HH #### [address] [address] EOSINOPHIL 0.00 0.00 - 0.70 x10E9/L Normal 09-07-2019 [facility] ([id number]) Comment: Performed By: #### HH #### [address] [address] LYMPHOCYTE 1.59 1.20 - 4.80 x10E9/L Normal 09-07-2019 [facility] (17817) Comment: Performed By: #### HH #### [address] [address] MONOCYTE 0.41 0.10 - 1.00 x10E9/L Normal 09-07-2019 [facility] (58002) Comment: Performed By: #### HH #### [address] [address] SEG NEUTROPHIL 3.84 1.20 - 7.00 x10E9/L Normal 09-07-2019 [facility] ([id number]) Comment: Performed By: #### HH #### [address] [address] Band form neutrophils/100 1.0 0.0 - 5.0 % Normal 08-19 [facility] 350 WBC (Bld) [place] ([id number]) Comment: Ordering Provider: NICKO TORRES 88814 Performed By: #### HH #### [address] [address] Basophils/100 WBC (Bld) 0.0 0.0 - 2.0 % Normal 2018 [facility] 350 [place] ([address]309) Comment: Ordering Provider: NICKO TORRES 49829 Performed By: #### HH #### [address] [address] Lymphocytes/100 WBC (Bld) 27.0 % Normal 08-19 [facility] 350 [place] ([id number]) Comment: Reference Range: 13.0 - 44.0 Ordering Provider: NICKO TORRES 80573 Performed By: #### HH #### [address] [address] Monocytes/100 WBC (Bld) 7.0 2.0 - 10.0 % Normal 09-07 [facility] 350 [place] ([address]77) Comment: Ordering Provider: NICKO TORRES 30916 Performed By: #### HH #### [address] [address] lipase, serum on 05-09-21 Lipase [Catalytic 40 9 - 82 U/L Normal 09-07-2019 [facility] 350 activity/Vol] [place] ([id number]) Comment: Venipuncture immediately aft er or during the administration of Metamizole may lead to falsely low resu lts. Testing should be performed immediately prior to Metamizole dosing. X-oqegxp-r-benzoquinone imine (metabolite of Acetaminophen) will generate erroneously low results in samples for patients that have taken toxic doses of acetaminophen. Ordering Provider: NICKO TORRES 13519 Result Comment: Venipuncture immediately after or during the administration of Metamizole may lead to falsely low results. Testing should be performed immediately prior to Metamizole dosing. X-jacfls-k-benzoquinone imin e (metabolite of Acetaminophen) will generate erroneously lo w results in samples for patients that have taken toxic doses of acetaminophen. Performed By: #### HH #### [address] [address] comprehensive panel on 2019-09-07 Albumin [Mass/Vol] 4.1 3.4 - 5.0 g/dL Normal 09-07-2019 [facility] ([id number]) Comment: Performed By: #### HH #### [address] [address] ALT [Catalytic activity/Vol] 19 7 - 45 U/L Normal 1 11-07-2018 [facility] (00 000) Comment: Result Comment: Patients graciela ated with Sulfasalazine may generate falsely decreased results fo r ALT. Performed By: #### HH #### [address] [address] AST [Catalytic activity/Vol] 21 9 - 39 U/L Normal 1 11-07-2018 [facility] (00 000) Comment: Performed By: #### HH #### [address] [address] GFR- AM. 46 >60 mL/min/1.73m2 Abnormal 09-07-2019 [facility] (03780) Comment: Result Comment: CALCULATIONS OF ESTIMATED GFR ARE PERFORMED USING THE MDRD STUDY EQUATIO N FOR THE IDMS-TRACEABLE CREATININE ME THODS. CLIN CHEM 2007;53:766-72 Performed By: #### HH #### [address] [address] GFR-NON AM. 38 >60 mL/min/1.73m2 Abnormal 2018 [facility] (00 000) Comment: Performed By: #### HH #### [address] [address] HCO3 (Bld) [Moles/Vol] 32 21 - 32 mmol/L Normal 019 [facility] ([id number]) Comment: Performed By: #### HH #### [address] [address] ALP [Catalytic 55 33 - 110 U/L Normal 09-07-2019 [facility] 350 activity/Vol] [place] (51934) Comment: Ordering Provider: NICKO TORRES 22213 Performed By: #### HH #### [address] [address] Anion gap [Moles/Vol] 13 10 - 20 mmol/L Normal 09-07-20 19 [facility] 350 [place] ([address]453) Comment: Ordering Provider: NICKO TORRES 46227 Performed By: #### HH #### [address] [address] Bilirubin [Mass/Vol] 0.3 0.0 - 1.2 mg/dL Normal 9 [facility] 350 [place] (28963) Comment: Ordering Provider: NICKO TORRES 10888 Performed By: #### HH #### [address] [address] Calcium [Mass/Vol] 9.7 8.6 - 10.3 mg/dL Normal 09-07-2019 [facility] 350 [place] ([address]696) Comment: Ordering Provider: NICKO TORRES 01864 Performed By: #### HH #### [address] [address] Chloride 97 98 - 107 mmol/L below low 09-07-2019 [facility] 350 [Moles/Vol] threshold [place] ([address]) Comment: Ordering Provider: NICKO TORRES 51742 Performed By: #### HH #### [address] [address] Creatinine 1.47 mg/dL above high 09-07-2019 [facility] 350 [Mass/Vol] threshold [place] ([address]) Comment: Reference Range: 0.50 - 1.05 Ordering Provider: NICKO TORRES 64328 Performed By: #### HH #### [address] [address] Glucose [Mass/Vol] 94 74 - 99 mg/dL Normal 09-07-2019 [facility] 350 [place] (25104) Comment: Ordering Provider: NICKO TORRES 43551 Performed By: #### HH #### [address] [address] Potassium 4.4 3.5 - 5.3 mmol/L Normal 09-07-2019 [facility] 350 [Moles/Vol] [place] ([address]) Comment: Ordering Provider: NICKO TORRES 41032 Performed By: #### HH #### [address] [address] Protein 6.3 6.4 - 8.2 g/dL below low 09-07-2019 [facility] 350 [Mass/Vol] threshold [place] ([address]181) Comment: Ordering Provider: NICKO TORRES 69074 Performed By: #### HH #### [address] [address] Sodium [Moles/Vol] 138 136 - 145 mmol/L Normal 09-07-2019 [facility] 350 [place] (630[address]) Comment: Ordering Provider: NICKO TORRES 74788 Performed By: #### HH #### [address] [address] Urea nitrogen 20 6 - 23 mg/dL Normal 09-07-2019 [facility] 350 [Mass/Vol] [place] ([address]69) Comment: Ordering Provider: NICKO Sanchez Performed By: #### HH #### [address] [address] complete blood count + differential on 2019-09-07 Erythrocyte 15.2 See Below % above high 09-07-2019 [facility] 350 distribution width [place] ([address]) (RBC) [Ratio] Comment: Reference Range: 11.5 - 14.5 Ordering Provider: NICKO Sanchez Hematocrit (Bld) [Volume 38.5 See Below % 09-07 [facility] 350 [place] fraction] (23498) Comment: Reference Range: 36.0 - 46.0 Ordering Provider: NICKO Sanchez Hemoglobin (Bld) 13.1 See Below g/dL 09-07-2019 [facility] 350 [Mass/Vol] [place] (50481) Comment: Reference Range: 12.0 - 16.0 Ordering Provider: NICKO Sanchez MCHC (RBC) [Mass/Vol] 34.0 See Below g/dL 09-07-20 19 [facility] 350 [place] (81942) Comment: Reference Range: 32.0 - 36.0 Ordering Provider: NICKO Sanchez MCV (RBC) [Entitic vol] 91 80 - 100 fL 2018 [facility] 350 [place] (70766) Comment: Ordering Provider: NICKO Sanchez Platelets (Bld) 92 150 - 450 {x10E9/L} below low [facility]-07-[facility] [#/Vol] threshold [place] (12767) Comment: Ordering Provider: NICKO Sanchez RBC (Bld) [#/Vol] 4.25 See Below {x10E12/L} 09-07-2019 [facility] 350 [place] (70244) Comment: Reference Range: 4.00 - 5.20 Ordering Provider: NICKO TORRES 81033 WBC (Bld) [#/Vol] 5.9 4.4 - 11.3 {x10E9/L} 09-07-2019 [facility] 350 [place] (91658) Comment: Ordering Provider: NICKO TORRES 53317 SEE MANUAL DIFF 09-07-2019 [facility] 350 [place] (28952) Comment: Ordering Provider: NICKO TORRES 51793 cbc and differential on 2019-09-07 DIFFERENTIAL SEE MANUAL DIFF Normal 09-07-2019 [facility] (46723) Comment: Performed By: #### HH #### [address] [address] Erythrocyte distribution 15.2 11.5 - 14.5 % [facility] (RBC) [Ratio] [facility] (45477) Comment: Performed By: #### HH #### [address] [address] Hematocrit (Bld) [Volume 38.5 36.0 - 46.0 % Normal [facility]] [facility] (00 000) Comment: Performed By: #### HH #### [address] [address] Hemoglobin (Bld) 13.1 12.0 - 16.0 g/dL Normal 09-07-2019 [facility] [Mass/Vol] Health (0 0000) Comment: Performed By: #### HH #### [address] [address] MCHC (RBC) [Mass/Vol] 34.0 32.0 - 36.0 g/dL Normal 2018 [facility] (00 000) Comment: Performed By: #### HH #### [address] [address] MCV (RBC) [Entitic vol] 91 80 - 100 fL Normal 2018 [facility] (51388) Comment: Performed By: #### HH #### [address] [address] Platelets (Bld) [#/Vol] 92 150 - 450 x10E9/L Low 2018 [facility] (06649) Comment: Performed By: #### HH #### [address] [address] RBC (Bld) [#/Vol] 4.25 4.00 - 5.20 x10E12/L Normal 09-07-2019 [facility] (00 000) Comment: Performed By: #### HH #### [address] [address] WBC (Bld) [#/Vol] 5.9 4.4 - 11.3 x10E9/L Normal 09-07-2019 [facility] (55893) Comment: Performed By: #### HH #### [address] [address] No panel information on 2019-09-07 Albumin BCP dye 4.1 3.4 - 5.0 g/dL 09-07-2019 [facility] [Mass/Vol] [place] ([address]50) Comment: Ordering Provider: NICKO TORRES 10047 ALT With P-5'-P [Catalytic 19 7 - 45 U/L [facility] 350 [place] activity/Vol] (13903 ) Comment: Patients treated with Sulfas alazine may generate falsely decreased results for ALT. Ordering Provider: NICKO TORRES 53931 AST With P-5'-P [Catalytic 21 9 - 39 U/L [facility] 350 [place] activity/Vol] (32009 ) Comment: Ordering Provider: NICKO TORRES 54789 Basophils (Bld) 0.00 See Below {x10E9/L} 09-07-2019 [facility] 350 [#/Vol] [place] ([address]44) Comment: Reference Range: 0.00 - 0.10 Ordering Provider: NICKO TORRES 13435 CO2 [Moles/Vol] 32 21 - 32 mmol/L 09-07-[address] ([facility]) Comment: Ordering Provider: NICKO Sanchez Eosinophils (Bld) 0.00 See Below {x10E9/L} 09-07-2019 [place] [address] [#/Vol] [place] ([facility]) Comment: Reference Range: 0.00 - 0.70 Ordering Provider: NICKO TORRES 64131 Eosinophils/100 WBC (Bld) 0.0 0.0 - 6.0 % 08-19 [address] ([facility]) Comment: Ordering Provider: NICKO TORRES [address]82 Lymphocytes (Bld) 1.59 See Below {x10E9/L} 09-07-2019 [place] [address] [#/Vol] [place] ([facility]) Comment: Reference Range: 1.20 - 4.80 Ordering Provider: NICKO Sanchez Monocytes (Bld) 0.41 See Below {x10E9/L} 09-07-2019 [place] [address] [#/Vol] [place] ([facility]) Comment: Reference Range: 0.10 - 1.00 Ordering Provider: NICKO TORRES 65728 Segmented neutrophils/100 65.0 See Below % 08-19 [place] [address] WBC (Bld) [place] ([facility]) Comment: Reference Range: 40.0 - 80.0 Percent differential counts (%) should be interpreted in the context o f the absolute cell counts (cells/L). Ordering Provider: NICKO Guadarrama03 3.84 See Below {x10E9/L} 09-07-[address] ([facility]) Comment: Reference Range: 1.20 - 7.00 Ordering Provider: NICKO TORRES 56485 46 >60 {mL/min/1.73m2} Abnormal 09-07-[address] ([facility]) Comment: CALCULATIONS OF ESTIMATED GF R ARE PERFORMED USING THE MDRD STUDY EQUATION FOR THE IDMS-TRACEABLE CREAT ININE METHODS. CLIN CHEM 2007;53:766-72 Ordering Provider: NICKO TORRES 72743 38 >60 {mL/min/1.73m2} Abnormal 09-07-[address] ([address]) Comment: Ordering Provider: NICKO TORRES 26489 0.06 See Below {x10E9/L} 09-07-[address] ([address]) Comment: Reference Range: 0.00 - 0.70 Ordering Provider: NICKO TORRES 91052 NORMAL 09-07-[address] ([address]) Comment: Ordering Provider: NICKO GIANNI TORRES 55276 3.90 See Below {x10E9/L} 09-07-[address] ([address]) Comment: Reference Range: 1.20 - 7.70 Ordering Provider: NICKO TORRES 45134 knee cmplt, 4 or more views on 2019-08-21 KNEE CMPLT, 4 OR Normal 9 [facility] MORE VIEWS Patient Name: [facility] ([id number]) STUDY: KNEE; COMPLT, 4 OR MORE VIEWS;Left; 08/20/2019 10:00 pm INDICATION: fall. COMPARISON: None. ACCESSION NUMBER(S): [id number] ORDERING CLINICIAN: TENISHA LANE FINDINGS: Four views left knee. No acute fracture or malalignment. Bones appear normally min eralized. No significant degenerative changes. No knee effusion. Soft tissues are within normal limits. IMPRESSION: Normal left knee radiography. Electronically signed by: HEIDY JARA MD No panel information on 2019-08-21 XR Knee 4 Interpreted by: HEIDY [place] 2018 [facility] 350 views INO JARA08/20/19 [place] (37971) 22:23MRN: [id number] Name: [facility] REEMA STUDY:KNEE; COMPLT, 4 OR MORE VIEWS;Left; 08/20/2019 10:00 pm INDICATION:fall. COMPARISON:None. ORDERING CLINICIAN:TENISHA LANE FINDINGS:Four views left knee. No acute fracture or malalignment. Bones appear normally mineralized.No significant degenerative changes. No knee effusion. Soft tissuesare within normal limits. IMPRESSION:Normal left knee radiography. Electronically signed by: HEIDY AJRA 08/20/19 22:23 Comment: Ordering Provider: TENISHA Mckoy 19011 triage - ed on 2018 Triage - ED Quick Triage: Normal 08-20-2019 [facility] Are You no H ealth (21045) Have You Given In The Last 6 Weeksno Are You Currently Breastfeedingno Chart Review: CHIEF COMPLAINT REEMA MOTTA is a Female patient with a chief complaint of fall. Other Complaints: pt has con tusion to forehead, per pt, i'm really just having a bad headache right now. unwitnessed fall from [address] NO LOC NOTED. per pt, I get tremors and I tripped over my f eet. Triage Date/Time: 20-Aug-2019 21:02 Pain Rating (0-10): 9 = Severe Pain location: headache Vital Signs: Temperature: 97.5F ( 36.4C) taken axillary Blood Pressure: 108/75 Mean: Heart Rate: 104 Respiratory Rate: 20 Pulse Oximetry: 95% on room air, no respiratory suppor t. Height: 4 feet 8.00 inches. 142.2 CM Weight: 175.2 pounds. Calculated 79.4 kg. Calculated BMI (kg/m2): 39.266 Calculated BSA (m2) 1.77 Codie Coma Scale: Best Eye Response: (E4) spontaneous Best Motor Response: (M6) obeys commands Best Verbal Response: (V5) oriented Codie Score: 15 Cough lasting greater than 3 weeks: no Travel outside of [place]: no Allergies: yes Last menstrual period: unknown Patient has homicidal thoughts: no RUSS: 4 Symptoms Are Negative For: loss of consciousness. Risk Screens Suicide Risk Screen In the Past Month: Have you wished you were or wished y ou could go to sleep and not wake up no In the Past Month: Have you had any actual thoughts of killi ng yourself no In Your Lifetime: Have you ever done anything, started to do anything, or prepared to do anything to end your life no Darby Fall Scale Screening Has the patient fallen before (or is the patient in the ED as a result of a fall) has not had a fall Does the patient have an impaired gait does not have impaire d gait Is the patient cognitively impaired not cognitively impaired PAIN Pain Scale Used: VAS Pain ratin Pain location: headache ARRIVAL INFORMATION Means of Arrival: stretcher Mode of Arrival: ambulance Age ncy: City Arrival From: assisted living facility Accompanied By: self and account retention representative Language: Spoken Language Preferred: Burundian Reading Language Preferre d: Burundian PRIMARY ASSESSMENT ABCD Normal Findings: airway open and patent PAST MEDICAL HISTORY Immunization History: Last Known Tetanus Immunization: Less than 5 years TRAVEL HISTORY Travel Exposure History: NO travel to [facility] in the past 30 days Past Medical History: Past Medical History Reviewedyes hypertension: Past Medical History, Active major depressive disorder: Past Medical History, Active anxiety: Past Medical History, Active epileptic seizure: Past Medical History, Active Electronic Signatures: Megan Linton (RN) (Signed 20-Aug-2019 21:11) Authored: Triage, Past Medical History Last Updated: 20-Aug-2019 21:11 by Megna Linton (RN) risk screen - adult emergency on 2019-08-20 Risk Screen - Preferred Language: Normal 2018 [facility] Adult Emergency Preferred Language: [facility] Preferred Language for Discussing Health Care (patient/desig nee)Burundian ([id number]) Advanced Directives: Advance Directive/DNRno Family Violence Adult: Abuse Screen: Are you or have you been threatened or abused physically, em otionally, or sexually by anyoneno Learning Assessment (Patient): Learning Assessment (Patient): Patient is Able to be Assessed for Learningyes Factors Influencing Readiness to Learnmotivation to learn Factors that Impact Ability to Learnnone Devices/Methods Used to Communicatenone Learning Preferencesaudio Cultural Considerationsnone Developmental Considerationsnone Samaritan Considerationsnone Learning Assessment (Other Learner): Learning Assessment (Other Learner): Other learner availableno Pressure Injury/TB/Substance: Pressure Injury: Pressure Injury Present on Admissionno Do you have a coughno Substance Use Current or Former 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: 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, 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, Alcohol, Street Drugs Admission Risk Screen: Significant IndicatorsComplete CAGE: CAGE: Is this an injured patient at a Trauma Center ([place]): no Electronic Signatures: Megan Linton (JOHN) (Signed 20-Aug-2019 21:45) Authored: Preferred Language, Advanced Directives, Family Vi olence Adult, Learning Assessment (Patient), Learning Assessment (Ot her Learner), Pressure Injury/TB/Substance, CAGE Last Updated: 20-Aug-2019 21:45 by Megan Linton (RN) provider note - ed v2 on 2019-08-20 Provider Note - Provider Note - ED v2: Normal 1 10-20-2018 [facility] ED v2 Chart Review: [facility] ED NOTES ([id number]) ED NOTES: HPI: Patient is a resident of a [facility] and just prior to arrival she had an unwitnessed fall. Patient states that she tri pped and fell forward hitting her forehead on the ground. Patient has approximately a 4 cm hematoma to the forehead and complains of some pain in her left knee. She denies any loss of consciousness vomiting or vision changes. Patient does have a history of baseline tremors. ROS: All systems are negative other than as noted in HPI. Physical Exam I have reviewed the triage vital signs. Const: Well nourished, well developed, appears stated age, no acute distress Eyes: PERRL, EOM intact, no conjunctival injection, vision g rossly normal HENT: Neck supple without meningismus , Moist mucous membranes, no pharyengeal swelling or exudate No cervi gaby vertebral tenderness. Minor pain over the right trapezius muscle. Minimal pain with range of motion. CV: Regular rate and rhythm, Warm, well- perfused extremities. Chest non tender RESP: Lungs clear bilaterally, Unlabored respiratory effort GI: soft, non-tender, non-distended, no masses : MSK: No gross deformities appreciated. Mild tenderness of left knee with no obvious deformities noted. Skin: Warm, dry. No rashes Neuro: Alert and oriented x4 , GCS 15 , home service demonstrator II-XII grossly intact. Sensation and motor function of extremities grossly intact. Psych: Appropriate mood and affect. HISTORY OF PRESENTING ILLNESS REEMA is a 43 year old Female and was seen by me at 20-Aug-2019 20:58 for a chief complaint of fall . Other complaints include: pt has c ontusion to forehead, per pt, i'm really just having a bad headache rig ht now. unwitnessed fall from [place] NO LOC NOTED. per pt, I get tremors and I tripped over my f eet.(1). Triage Information: Most recent Vital Sign Value Date Temp (F): 97.5 08-20-2019 21:02 Temp (C): 36.4 08-20-2019 21:02 Heart Rate (beats/min): 104 08-20-2019 21:02 Respirations (breaths/min): 20 08-20-2019 21:02 SpO2 (%): 95 08-20-2019 21:02 BP Systolic (mm Hg): 108 08-20-2019 21:02 BP Diastolic (mm Hg): 75 08-20-2019 21:02 PAST MEDICAL HISTORY ATTESTATION: I have reviewed and confirm ed nurse's/medic's notes for patient's medications, allergies, medical history, and surgical histor y ALLERGIES/INTOLERANCES: Allergy Allergen: penicillin Type: Drug Reaction: Unknown Allergen: morphine Type: Drug Reaction: Unknown Allergen: tramadol Type: Drug Reaction: Unknown Allergen: hydrocodone Type: Drug Reaction: Unknown HEALTH HISTORY: No documented data. OUTPATIENT MEDICATIONS: Home Medications Review Status for Reconciliation: N/A Med Status: N/A No documented data. SIGNIFICANT EVENTS: Past Medical History Description:epileptic seizure Description:anxiety Description:major depressive disorder Description:hypertension TRAINING CONSULTANT: Is : no(1) Is : no(1) RESULTS/VITAL SIGNS RESULTS: Radiology Results: Impression: Normal left knee radiography. Xray Knee Complete 4 or more View [Aug 20 2019 10:25PM] Impression: No evidence of acute intracranial abnormality. Small left fr ontal scalp hematoma. No acute cervical spine fracture or malalignment. CT Head without Contrast [Aug 20 2019 10:24PM] Impression: No evidence of acute intracranial abnormality. Small left fr ontal scalp hematoma. No acute cervical spine fracture or malalignment. CT C Spine without Contrast [Aug 20 2019 10:24PM] VITAL SIGNS: T PRBP SpO2O2(LPM) %FiO2 Method 20-Aug-2019 21:02:[id number]/75 95 room air, no respira tory support MEDICAL DECISION MAKING/ED COURSE MDM/ED COURSE: On initial presentation patient had no cervical verteb ral tenderness but did have a large hematoma to the patient's forehead. Patient had mild diffuse tenderness to the left knee and scans were ordered. 2229- final results reviewed with cortney mathew who continues to rest in bed with no acute distress. Patient discharged back to half-way faci lity. The CAT scan of your head and neck did not show any co ncerning injuries. The x-ray of your knee was also normal. Your symptoms today appear most consistent with a mild concussion and a bruise related to the fall. Please continue to use ibuprofen or Tylenol as seen for pain an d follow-up with your family doctor as needed. Please feel free to return immediately to the nearest ER for any new or worsening concerns. CLINICAL IMPRESSION Diagnosis/Annotation: ED Dx Name:Concussion Code:S06.0X9A Name:Traumatic hematoma of forehead Code:S00.83XA Dispostion: discharged Type: assisted living facility ATTESTATION CRITICAL CARE TIME Is this a critically ill patient: no Electronic Signatures: Tenisha Lane I (VEHICLE MECHANIC-PHARMACY CLINICAL COORDINATOR) (Signed 20-Aug-2019 22:33) Authored: Provider Note - ED v2 Last Updated: 20-Aug-2019 22:[address] I (VEHICLE MECHANIC-PHARMACY CLINICAL COORDINATOR) References: 1. Data Referenced From Triage - ED 20-Aug-2019 21:02 ct head wo contrast on 2019-08-20 CT HEAD WO Normal 08-20-2019 [id number]: CT HEAD WO CONTRAST; CT C-SPINE WO CONTRAST;; 08/20/2019 9:58 pm INDICATION: fall. COMPARISON: 03/18/[address] cervical spine from 03/16/2019. ACCESSION NUMBER(S): [id number]; [id number] ORDERING CLINICIAN: TENISHA LANE TECHNIQUE: Noncontrast CT exams of the head and cervical spine with mul tiplanar reformations. FINDINGS: BRAIN PARENCHYMA: Amaral-white matter interfaces are preserved . No mass, mass effect or midline shift. HEMORRHAGE: No acute intracranial hemorrhage. VENTRICLES and EXTRA-AXIAL SPACES: Normal size. EXTRACRANIAL SOFT TISSUES: There is a small left frontal sca lp hematoma. PARANASAL SINUSES/MASTOIDS: The visualized paranasal sinuses and mastoid air cells are aerated. CALVARIUM: No depressed skull fracture. No destructive osseo us lesion. OTHER FINDINGS: None. CERVICAL SPINE: Mild reversal of the normal cervical lordosis could reflect positioning or muscle spasm. ALIGNMENT: Normal. VERTEBRAE: No acute fracture. Mild multilevel degenerative e ndplate osteophyte formation and uncovertebral hypertrophy. Mild mul tilevel hypertrophic facet osteoarthropathy. SPINAL CANAL: No critical spinal canal stenosis. PREVERTEBRAL SOFT TISSUES: No prevertebral soft tissue swell ing. LUNG APICES: Imaged portion of the lung apices are within no rmal limits. OTHER FINDINGS: None. IMPRESSION: No evidence of acute intracranial abnormality. Small left fr ontal scalp hematoma. No acute cervical spine fracture or malalignment. Electronically signed by: HEIDY JARA MD ct c-spine wo contrast on 2019-08-20 CT C-SPINE WO Normal [facility]: [facility] ([id number]) STUDY: CT HEAD WO CONTRAST; CT C-SPINE WO CONTRAST;; 08/20/2019 9:58 pm INDICATION: fall. COMPARISON: 03/18/[address] cervical spine from 03/16/2019. ACCESSION NUMBER(S): [id number]; [id number] ORDERING CLINICIAN: TENISHA LANE TECHNIQUE: Noncontrast CT exams of the head and cervical spine with mul tiplanar reformations. FINDINGS: BRAIN PARENCHYMA: Amaral-white matter interfaces are preserved . No mass, mass effect or midline shift. HEMORRHAGE: No acute intracranial hemorrhage. VENTRICLES and EXTRA-AXIAL SPACES: Normal size. EXTRACRANIAL SOFT TISSUES: There is a small left frontal sca lp hematoma. PARANASAL SINUSES/MASTOIDS: The visualized paranasal sinuses and mastoid air cells are aerated. CALVARIUM: No depressed skull fracture. No destructive osseo us lesion. OTHER FINDINGS: None. CERVICAL SPINE: Mild reversal of the normal cervical lordosis could reflect positioning or muscle spasm. ALIGNMENT: Normal. VERTEBRAE: No acute fracture. Mild multilevel degenerative e ndplate osteophyte formation and uncovertebral hypertrophy. Mild mul tilevel hypertrophic facet osteoarthropathy. SPINAL CANAL: No critical spinal canal stenosis. PREVERTEBRAL SOFT TISSUES: No prevertebral soft tissue swell ing. LUNG APICES: Imaged portion of the lung apices are within no rmal limits. OTHER FINDINGS: None. IMPRESSION: No evidence of acute intracranial abnormality. Small left fr ontal scalp hematoma. No acute cervical spine fracture or malalignment. Electronically signed by: HEIDY JARA MD No panel information on 2019-08-20 CT Head Interpreted by: HEIDY [place] [address] [facility]08/20/19 Jaspal ([id number]) contrast 22:22MRN: [id number] Name: BRITTNYMAGALYJOSEE REEMA STUDY:CT HEAD WO CONTRAST; CT C-SPINE WO CONTRAST;; 08/20/2019 9:58 pm INDICATION:fall. COMPARISON:03/18/[address] cervical spine from 03/16/2019. [id number] ORDERING CLINICIAN:TENISHA LANE TECHNIQUE:Noncontrast CT exams of the head and cervical spine with multiplanarreformations. FINDINGS:BRAIN PARENCHYMA: Amaral-white matter interfaces are preserved. Nomass, mass effect or midline shift. HEMORRHAGE: No acute intracranial hemorrhage.VENTRICLES and EXTRA-AXIAL SPACES: Normal size.EXTRACRANIAL SOFT TISSUES: There is a small left frontal scalphematoma.PARANASAL SINUSES/MASTOIDS: The visualized paranasal sinuses andmastoid air cells are aerated.CALVARIUM: No depressed skull fracture. No destructive osseous lesion. OTHER FINDINGS: None. CERVICAL SPINE: Mild reversal of the normal cervical lordosis could reflectpositioning or muscle spasm.ALIGNMENT: Normal.VERTEBRAE: No acute fracture. Mild multilevel degenerative endplateosteophyte formation and uncovertebral hypertrophy. Mild multilevelhypertrophic facet osteoarthropathy.SPINAL CANAL: No critical spinal canal stenosis.PREVERTEBRAL SOFT TISSUES: No prevertebral soft tissue swelling.LUNG APICES: Imaged portion of the lung apices are within normallimits. OTHER FINDINGS: None. IMPRESSION:No evidence of acute intracranial abnormality. Small left frontalscalp hematoma. No acute cervical spine fracture or malalignment. Electronically signed by: HEIDY JARA 08/20/19 22:22 Comment: Ordering Provider: TENISHA Mckoy [id number] Interpreted by: HEIDY MCKINNON Normal 08-20-[address]08/20/19 22:22MRN: [id number] Name: REEMA MOTTA STUDY:CT HEAD WO CONTRAST; CT C-SPINE WO CONTRAST;; 08/20/2019 9:58 pm INDICATION:fall. COMPARISON:03/18/[address] cervical spine from 03/16/2019. [id number] ORDERING CLINICIAN:TENISHA LANE TECHNIQUE:Noncontrast CT exams of the head and cervical spine with multiplanarreformations. FINDINGS:BRAIN PARENCHYMA: Amaral-white matter interfaces are preserved. Nomass, mass effect or midline shift. HEMORRHAGE: No acute intracranial hemorrhage.VENTRICLES and EXTRA-AXIAL SPACES: Normal size.EXTRACRANIAL SOFT TISSUES: There is a small left frontal scalphematoma.PARANASAL SINUSES/MASTOIDS: The visualized paranasal sinuses andmastoid air cells are aerated.CALVARIUM: No depressed skull fracture. No destructive osseous lesion. OTHER FINDINGS: None. CERVICAL SPINE: Mild reversal of the normal cervical lordosis could reflectpositioning or muscle spasm.ALIGNMENT: Normal.VERTEBRAE: No acute fracture. Mild multilevel degenerative endplateosteophyte formation and uncovertebral hypertrophy. Mild multilevelhypertrophic facet osteoarthropathy.SPINAL CANAL: No critical spinal canal stenosis.PREVERTEBRAL SOFT TISSUES: No prevertebral soft tissue swelling.LUNG APICES: Imaged portion of the lung apices are within normallimits. OTHER FINDINGS: None. IMPRESSION:No evidence of acute intracranial abnormality. Small left frontalscalp hematoma. No acute cervical spine fracture or malalignment. 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 She notes overall pain improved since last visit. She notes she had no period 1 week later they'll anticipated from office. Patient notes she was mildl y cramping or pain wasn't that bad. Patient took Tylenol for pain. Patient notes today minimal pain, though rates it as a 7 out of 10. Patient is not bleeding currently. Review of Systems Constitutional: No fevers, chills Eye:no vision changes Respiratory: no SOB Cardiovascular: no chest pain Gastrointestinal: No nausea, vomiting, d iarrhea, constipation. +abdominal pain Genitourinary:no dysuria Gynecology: See HPI Active Problems Malpositioned IUD (996.76) (T83.32XA) Pelvic pain in female (625.9) (R10.2) Past Medical History History of anxiety (V11.8) (Z86.59) History of blood transfusion (V15.89) (Z92.89) History of congestive heart failure (V12.59) (Z86.79) History of hypertension (V12.59) (Z86.79) History of seizure (V12.49) (Z87.898) History of vaginal delivery (V13.29) 09/15/1997; 34 WEEKS; FEMALE; 4LBS 3OZ History of Menarche (V21.8) History of Pap test, as part of routine gynecological examination (V76.2) (Z01.419) Surgical History History of Breast reduction Family History Family history of cardiac disorder (V17.49) (Z82.49) Family history of diabetes mellitus (V18.0) (Z83.3) Family history of hypertension (V17.49) (Z82.49) Family history of hypothyroidism (V18.19) (Z83.49) Social History Does not use illicit drugs (V49.89) (Z78.9) Never a smoker No alcohol use Current Meds Acetaminophen 500 MG Oral Tablet; Therapy: (Recorded:07Aug2019) to Recorded Dispense: 0 Days ; #: Suffic ient; Refill: 0; SHARLENE = N; Record; Last Updated By: Minerva Hauser; 08/07/2019 10:46:04 AM Albuterol Sulfate HFA 108 (9 0 Base) MCG/ACT Inhalation Aerosol Solution; INHALE 2 PUFFS BY MOUTH 4 TIMES A DAY NEEDED FOR WHEEZING; Therapy: 21Dec2018 to Recorded Rx By: MARICEL; Dispense: 30 D ays ; #:9; Refill: 0; SHARLENE = N; Record; Last Updated By: Minerva Hauser; 08/07/2019 10:46:04 AM Allopurinol 300 MG Oral Tablet; Therapy: (Recorded:07Aug2019) to Recorded Dispense: 0 Days ; #: Suffic ient; Refill: 0; SHARLENE = N; Record; Last Updated By: Minerva Hauser; 08/07/2019 10:46:04 AM busPIRone HCl - 5 MG Oral Tablet; TAKE 1 TABLET BY MOUTH SAIRA RY 8 HOURS NEEDED; Therapy: 09Feb2019 to Recorded Rx By: KEYSHA; Dispense: 30 D ays ; #:90; Refill: 0; SHARLENE = N; Record; Last Updated By: Minerva Hauser; 08/07/2019 10:46:04 AM Depakote ER 500 MG Oral Tablet Extended Release 24 Hour; TRINIDAD E 1 TABLET BY MOUTH TWICE A DAY; Therapy: [id number] to Recorded Rx By: KEYSHA; Dispense: 30 D ays ; #:60; Refill: 0; SHARLENE = N; Record; Last Updated By: Minerva Hauser; 08/07/2019 10:46:04 AM Doxazosin Mesylate 4 MG Oral Tablet; TRINIDAD E 1 (ONE) TABLET (4 MG TOTAL) BY MOUTH NIGHTLY ; Therapy: 25Oct2018 to Recorded Rx By: FRANSISCO; Dispense: 30 Days ; #:30; Refill: 0; SHARLENE = N; Record; Last Updated By: Minerva Hauser; 08/07/2019 10:53:56 AM Famotidine 40 MG Oral Tablet; TAKE 1 (ONE) TABLET (40 MG TOT AL) BY MOUTH DAILY; Therapy: 96Mlx0530 to Recorded Rx By: MENDY; Dispense: 30 D ays ; #:30; Refill: 0; SHARLENE = N; Record; Last Updated By: Minerva Hauser; 08/07/2019 10:53:56 AM Keppra 750 MG Oral Tablet; TAKE 1 TABLET BY MOUTH TWICE A DA Y; Therapy: 86Aoc5894 to Recorded Rx By: KEYSHA; Dispense: 30 D ays ; #:60; Refill: 0; SHARLENE = N; Record; Last Updated By: Minerva Hauser; 08/07/2019 10:53:56 AM Lisinopril 30 MG Oral Tablet; Therapy: (Recorded:07Aug2019) to Recorded Dispense: 0 Days ; #: Suffic ient; Refill: 0; SHARLENE = N; Record; Last Updated By: Minerva Hauser; 08/07/2019 10:53:56 AM LORazepam 1 MG Oral Tablet; TAKE 1 TABLET BY MOUTH FOUR TIME S A DAY; Therapy: 98Apq7173 to Recorded Rx By: KEYSHA; Dispense: 30 D ays ; #:120; Refill: 0; SHARLENE = N; Record; Last Updated By: Minerva Hauser; 08/07/2019 10:53:56 AM Melatonin 3 MG Oral Capsule; Therapy: (Recorded:07Aug2019) to Recorded Dispense: 0 Days ; #: Suffic ient; Refill: 0; SHARLENE = N; Record; Last Updated By: Minerva Hauser; 08/07/2019 10:53:56 AM Mirtazapine 30 MG Oral Tablet; TAKE 1 TABLET BY MOUTH EVERY DAY AT SUPPER TIME; Therapy: 40Slu4750 to Recorded Rx By: KEYSHA; Dispense: 30 D ays ; #:30; Refill: 0; SHARLENE = N; Record; Last Updated By: Minerva Hauser; 08/07/2019 10:53:56 AM Potassium Chloride ER 10 MEQ Oral Capsule Extend ed Release; TAKE 1 CAPSULE BY MOUTH TWICE A DAY; Therapy: 88Xwp2689 to Recorded Rx By: MENDY; Dispense: 30 D ays ; #:60; Refill: 0; SHARLENE = N; Record; Last Updated By: Minerva Hauser; 08/07/2019 10:53:56 AM Vitals Vital Signs Recorded: 07Aug2019 11:01AM Yxsjywgh023 Ynpzcyxtl89 Height4 ft 7.12 in Lijveu437 lb 4.83 oz BMI Nmlvgnnnbi24.11 BSA Calculated1.65 Physical Exam General: None acute distress Eye: Intraocular movements are intact HEENT: Normocephalic Respiratory: Respirations are nonlabored Gastrointestinal: Nondistended Musculoskeletal: Normal range of motion Neurologic: Alert and orientedx3 Psychiatric: Cooperative appropriate mood and affect. Results/Data Ultrasound Pelvis Transabdom inal With Otjpschxhlsj87Zer1964 10:44AMAAnel adkins Test NameResultFlagReference Ultrasound Pelvis Transabdominal With Transvaginal(Report) Interpreted by: TIFFANIE PARK 08/03/19 22:49 Patient Name: REEMA MOTTA STUDY: US PELVIS TRANSABDOMINAL WITH TRANSVAGINAL; 08/03/2019 10:44 am INDICATION: PELVIC PAIN. COMPAR BRIGIDA: None. ACCESSION NUMBER (S): [id number] ORDERING CLINICIAN: ANEL MORGAN TECHNIQUE: Transabdominal and transvaginal grayscale, color and spectral Doppler ultrasound of the pelvis. FINDINGS: UTERUS: The uterus is normal size, flores uring 8.1 x 3.9 x 4.7 cm. There are no leiomyomas. ENDOMETRIUM: Normal thickness, measuring 5 mm. An IUD is seen within the endometrium at the level of the lower uterine segm ent. RIGHT ADNEXA: Normal si ze, measuring 3.7 x 2.3 x 3.9 cm. Normal arterial and venous spectral Doppler waveforms. LEFT ADNEXA: Normal size, measuring 4.2 x 2.1 x 3.2 cm. Vascularity difficult to inte rrogate in the left ovary se condary to posterior position within the pelvis. CUL DE SAC: No pelvic free fluid. IMPRESSION: IUD is in place in the endometrium at the level of the lower uterine segment. N o acute pelvic pathology is otherwise demonstrated. Electronically signed by: TIFFANIE PARK 08/03/19 22:49 Diagnoses/Problems Pelvic pain in female (625.9) (R10.2) Malpositioned IUD (996.76) (T83.32XA) Provider Impressions 1) pelvic pain- unclear etio logy but patient has a malpositioned IUD noted on ultrasound. My review in PACS notes no other acute abnormalities. Discuss treatment options with patient including medical t herapy and surgical therapy expectant management. Had a long discussion on goals of therapy and her desires. Shared decision was for removal of malpositioned IUD and replacement of IUD as patient previo usly had multiple years with out bleeding on the IUD. Plan to place at next visit. Originally counseled on ibuprofen when necessary for cramps. After her visit reviewed her chart in the old system and noted creatinine 1.4. I called the patient left a message on her phone saying she should not utilize ibuprofen, given her kidney dysfunction. Signatures Electronically signed by : Anel Morgan DO; Aug 07 9 12:58PM EST (Author) hgb + hct on 2018-1018 Hematocrit (Bld) [Volume 36.5 36.0 - 46.0 % Normal [facility] fraction] Health (00 000) Comment: Performed By: #### HH #### [id number] [place] [address] Hemoglobin (Bld) 12.3 12.0 - 16.0 g/dL Normal 08-04-2019 [facility] [Mass/Vol] Health (0 0000) Comment: Performed By: #### HH #### [address] [place] [address] pelvis transabdominal with transvagin al on 2019-08-03 US PELVIS Normal 08-03-2019 [facility] Patient Name: BRITTNYJOSEE [facility] TRANSVAGINAL ([id number]) STUDY: US PELVIS TRANSABDOMINAL WITH TRANSVAGINAL; 08/03/2019 10:44 am INDICATION: PELVIC PAIN. COMPARISON: None. ACCESSION NUMBER(S): [id number] ORDERING CLINICIAN: ANEL MORGAN TECHNIQUE: Transabdominal and transvaginal grayscale, color and spectra l Doppler ultrasound of the pelvis. FINDINGS: UTERUS: The uterus is normal size, measuring 8.1 x 3.9 x 4.7 cm. The re are no leiomyomas. ENDOMETRIUM: Normal thickness, measuring 5 mm. An IUD is seen within the endometrium at the level of the lower uterine segment. RIGHT ADNEXA: Normal size, measuring 3.7 x 2.3 x 3.9 cm. Normal arterial a nd venous spectral Doppler waveforms. LEFT ADNEXA: Normal size, measuring 4.2 x 2.1 x 3.2 cm. Vascularity diffi cult to interrogate in the left ovary secondary to posterior positio n within the pelvis. CUL DE SAC: No pelvic free fluid. IMPRESSION: IUD is in place in the endometrium at the level of the lower uterine segment. No acute pelvic pathology is otherwise demonstrated. Electronically signed by: TIFFANIE PARK MD No panel information on 2019-08-03 Interpreted by: TIFFANIE NAVARRO Normal 08-03-2019 [facility] 350 QKRJVGIP33/17/19 22:49MRN: Jaspal ([id number]) [id number] Name: [facility] TRIPPORAH STUDY:US PELVIS TRANSABDOMINAL WITH TRANSVAGINAL; 08/03/2019 10:44 am INDICATION:PELVIC PAIN. COMPARISON:None. ORDERING CLINICIAN:ANEL MORGAN TECHNIQUE:Transabdominal and transvaginal grayscale, color and spectral Dopplerultrasound of the pelvis. FINDINGS:UTERUS:The uterus is normal size, measuring 8.1 x 3.9 x 4.7 cm. There are noleiomyomas. ENDOMETRIUM:Normal thickness, measuring 5 mm. An IUD is seen within theendometrium at the level of the lower uterine segment. RIGHT ADNEXA:Normal size, measuring 3.7 x 2.3 x 3.9 cm. Normal arterial and venousspectral Doppler waveforms. LEFT ADNEXA:Normal size, measuring 4.2 x 2.1 x 3.2 cm. Vascularity difficult tointerrogate in the left ovary secondary to posterior position withinthe pelvis. CUL DE SAC:No pelvic free fluid. IMPRESSION:IUD is in place in the endometrium at the level of the lower uterinesegment. No acute pelvic pathology is otherwise demonstrated.Electronically signed by: TIFFANIE PARK 08/03/19 22:49 chlamydia gc by pcr on 2019-07-19 Chlamydia by PCR. Not Detected Not Detected Normal 2018 [facility] tem ([id number]) Comment: Result Comment: Xpert CT/NG Assay performance has not been evaluated in patients less than 14 years of age. Performed By: #### [id number] #### MARCUS RemHemo [facility] [place] [address] Gonorrhoeae by PCR Not Detected Not Detected Normal 07-19 [facility] tem ([id number]) Comment: Result Comment: Xpert CT/NG Assay performance has not been evaluated in patients less than 14 years of age. Performed By: #### [id number] #### MARCUS RemHemo [id number] ct abdomen/pelvis w/ contrast on 2019-07-05 CT Abdomen/Pelvis w/ Exam Date/Time: Normal [facility] Contrast 07/05/2019 13:33 EDT [facility] Reason for Exam: Sys tem ([id number]) ABDOMINAL PAIN AND TENDERNESS Report STUDY: CT Abdomen/Pelvis w/ Contrast; 07/05/2019 1:33 pm INDICATION: ABDOMINAL PAIN AND TENDERNESS. COMPARISON: 12/02/2018 ACCESSION NUMBER(S): [id number] ORDERING CLINICIAN: Holden Velasco TECHNIQUE: Contiguous axial images were obtained through the abdomen and pelvis following the intravenous administration of 115 cc of Omnipaque 350. Oral contrast was administer ed. Coronal and sagittal reconstructions were performed. FINDINGS: LOWER CHEST: Images through the lung base s demonstrate mild areas of atelectasis and/or scarring. Nodular density in the right middle lobe, image 2 of 58, unchanged , measuring 4 mm. ABDOMEN AND PELVIS: LIVER: Within normal limits. BILE DUCTS: Not abnormally dilated. GALLBLADDER: No calcified stones. No wall thickening. PANCREAS: Appears unremarkable. SPLEEN: Appears unremarkable. ADRENAL GLANDS: Appear unremarkable. KIDNEYS, URETERS, AND BLADDER: Exam Date/Time: 07/05/2019 13:33 EDT Report The kidneys enhance with con trast material symmetrically. There is no evidence of hydronephrosis. Subcentimeter hypoattenuatin g lesion noted within the inferior pole the right kidney, too small to characterize, stati stically most likely a cyst. The urinary bladder appears grossly unremarkable. BOWEL: The small and large bowel ar e normal in caliber and demonstrate no wall thickening. There is no evidence of a bowel obstr uction. Appendix is normal in caliber. Although CT has limited sensitivity and specificity for gastric pathology, the stomach appears grossly unremarkable. RETROPERITONEUM, VESSELS: There is no aneurysmal dilat ation of the abdominal aorta. The IVC is within normal limits. No pathologically enlarged retroperitoneal lymph nodes are note d. PERITONEUM: There is no evidence of pneu moperitoneum. No ascites or loculated fluid collection noted. Uterus is normal in size. Th ere is an IUD within the uterus which appears to be in a low-lying position, along the lower ut erine segment and cervix. However, this is unchanged when compared to the previous study. There is a 2.8 cm left ovarian cyst/follicle. No pathologically enlarged mesenteric lymph nodes are identified. ABDOMINAL WALL, SOFT TISSUES: No acute process. SKELETON: Degenerative changes. No acute process. IMPRESSION: No CT evidence of an acute intra-abdominal or pelvic process . 2.8 cm cyst/follicle within the left ovary. Additional unchanged findings as above. FINAL REPORT Dictated: 07/05/2019 3:48 pm Andrey Sunshine MD Signed (Electronic Signature): 07/05/2019 3:48 pm Signed by: Andrey Sunshine MD Technologist: MM, magnesium on 2018-0 608 Magnesium [Mass/Vol] 2.0 1.6-2.4 mg/dL Normal 06- 9 [facility] () Comment: Performed By: #### [id number] #### MARCUS JeriHemo [address] [place] [address] egfr on 2019-03-25 GFR/1.73 sq M predicted 50 mL/min/1.73 m2 Normal 0 03-25-2019 [facility] among non-blacks [facility] (83947) (S/P/Bld) [Vol rate/Area] Comment: Order Comment: Order Added b y Discern Expert. Performed By: #### [id number] #### MARCUSShawn WilcoxHemo [address] [place] [address] GFR/1.73 sq M predicted >60 mL/min/{1.73_m2} Normal 03-25-2019 [facility] among non-blacks [facility] (36958) (S/P/Bld) [Vol rate/Area] Comment: Order Comment: Order Added b y Discern Expert. Performed By: #### [id number] #### MARCUSShawn WilcoxHemo [address] [place] [address] bmp on 2019-03-25 Anion gap [Moles/Vol] 10 10-20 mEq/L Normal 03-25-20 19 [facility] ( 000) Comment: Performed By: #### [id number] #### MARCUS JeriHemo [facility] [place] [address] Calcium [Mass/Vol] 8.7 8.6-10.3 mg/dL Normal 03-25-2019 [facility] ( 000) Comment: Performed By: #### [id number] #### MARCUSShawn WilcoxHemo [address] [place] [address] Chloride [Moles/Vol] 108 98-107 mEq/L High 9 [facility] (00 000) Comment: Performed By: #### [id number] #### MARCUS RemHemo [facility] [place] [address] CO2 [Moles/Vol] 25.0 21.0-32.0 mEq/L Normal 03-25-2019 [facility] (00 000) Comment: Performed By: #### [id number] #### MARCUS RemHemo [address] [place] [address] Creatinine [Mass/Vol] 1.2 0.5-1.1 mg/dL High 03-25-20 [facility] (00 000) Comment: Performed By: #### [id number] #### MARCUS WilcoxHemo [address] [place] [address] Glucose [Mass/Vol] 97 70-99 mg/dL Normal 03-25-2019 [facility] (15895) Comment: Performed By: #### [id number] #### MARCUS JeriHemo [facility] [place] [address] Potassium [Moles/Vol] 4.5 3.5-5.3 mEq/L Normal 03-25-20 [facility] (00 000) Comment: Performed By: #### [id number] #### MARCUS WilcoxHemo [facility] [place] [address] Sodium [Moles/Vol] 138 136-145 mEq/L Normal 03-25-2019 [facility] (00 000) Comment: Performed By: #### [id number] #### MARCUS JeriHemo [facility] [place] [address] Urea nitrogen [Mass/Vol] 14 6-23 mg/dL Normal 03-25 [facility] (00 000) Comment: Performed By: #### [id number] #### MARCUS JeriHemo [facility] [place] [address] Urea nitrogen/Creatinine 11.7 5.4-30.0 ratio Normal 03-25 [facility] [Mass ratio] [facility] (65467) Comment: Performed By: #### [id number] #### MARCUS JeriHemo [facility] [place] [address] magnesium on 03-24 Magnesium [Mass/Vol] 2.1 1.6-2.4 mg/dL Normal 9 [facility] (00 000) Comment: Performed By: #### [id number] #### MARCUS RemHemo [facility] [place] [address] egfr on 2019-03-24 GFR/1.73 sq M predicted >60 mL/min/{1.73_m2} Normal 03-24-2019 [facility] among non-blacks [facility] (43746) (S/P/Bld) [Vol rate/Area] Comment: Order Comment: Order Added erma Aldana Expert. Performed By: #### [id number] #### MARCUS Kenyoncorky [facility] [place] [address] GFR/1.73 sq M predicted 55 mL/min/1.73 m2 Normal 0 03-24-2019 [facility] among non-blacks [facility] (13039) (S/P/Bld) [Vol rate/Area] Comment: Order Comment: Order Added erma Aldana Expert. Performed By: #### [id number] #### MARCUS JeriKarlo [facility] [place] [address] cbc w/ auto diff on 2019-03-24 Erythrocyte distribution 13.4 11.5-14.5 % Normal 03-24 [facility] width (RBC) [Ratio] Health System (25280) Comment: Performed By: #### [id number] #### MARCUS Kostaso [facility] [place] [address] Hematocrit (Bld) [Volume 36.3 36.0-48.0 % Normal 03-24 [facility] fraction] Health Sys tem (42878) Comment: Performed By: #### [id number] #### MARCUS Kenyono [facility] [place] [address] Hemoglobin (Bld) 12.3 12.0-16.0 G/DL Normal 03-24-2019 [facility] [Mass/Vol] Health Sy stem (78886) Comment: Performed By: #### [id number] #### MARCUS WilcoxHemo [facility] [place] [address] MCH (RBC) [Entitic mass] 30.4 27.0-31.0 pg Normal 03-24 [facility] (00 000) Comment: Performed By: #### [id number] #### MARCUS WilcoxHemo [facility] [place] [address] MCHC (RBC) [Mass/Vol] 33.7 33.0-37.0 G/DL Normal 03-24-20 19 [facility] (00 000) Comment: Performed By: #### [id number] #### MARCUS WilcoxHemo [facility] [place] [address] MCV (RBC) [Entitic vol] 90.1 78.0-100.0 fL Normal 03-24 [facility] Sys tem (21969) Comment: Performed By: #### [id number] #### MARCUS WilcoxHemo [address] [place] [address] Platelet mean volume 8.3 7.4-11.0 fL Normal 9 [facility] (Bld) [Entitic vol] System (51472) Comment: Performed By: #### [id number] #### MARCUS JeriHemo [facility] [place] [address] Platelets (Bld) [#/Vol] 101 130-400 E3/mcL Low 2018 [facility] (00 000) Comment: Performed By: #### [id number] #### [facility] [address] [place] [address] RBC (Bld) [#/Vol] 4.04 3.90-5.40 E6/mcL Normal 03-24-2019 [facility] (00 000) Comment: Performed By: #### [id number] #### MARCUS JeriHemo [facility] [place] [address] WBC (Bld) [#/Vol] 3.9 3.6-11.0 E3/mcL Normal 03-24-2019 [facility] (00 000) Comment: Performed By: #### [id number] #### MARCUS JeriHemo [facility] [place] [address] bmp on 2019-03-24 Anion gap [Moles/Vol] 9 10-20 mEq/L Low 03-24-20 19 [facility] (85830) Comment: Performed By: #### [id number] #### MARCUSShawn WilcoxHemo [facility] [place] [address] Calcium [Mass/Vol] 8.2 8.6-10.3 mg/dL Low 03-24-2019 [facility] (07372) Comment: Performed By: #### [id number] #### MARCUS JeriHemo [facility] [place] [address] Chloride [Moles/Vol] 110 98-107 mEq/L High 9 [facility] () Comment: Performed By: #### [id number] #### MARCUS RemHemo [address] [place] [address] CO2 [Moles/Vol] 23.0 21.0-32.0 mEq/L Normal 03-24-2019 [facility] () Comment: Performed By: #### [id number] #### MARCUS RemHemo [address] [place] [address] Creatinine [Mass/Vol] 1.1 0.5-1.1 mg/dL Normal 03-24-20 [facility] () Comment: Performed By: #### [id number] #### MARCUS RemHemo [address] [place] [address] Glucose [Mass/Vol] 92 70-99 mg/dL Normal 03-24-2019 [facility] (65066) Comment: Performed By: #### [id number] #### MARCUS RemHemo [address] [place] [address] Potassium [Moles/Vol] 4.1 3.5-5.3 mEq/L Normal 03-24-20 [facility] () Comment: Performed By: #### [id number] #### MARCUS RemHemo [address] [place] [address] Sodium [Moles/Vol] 138 136-145 mEq/L Normal 03-24-2019 [facility] () Comment: Performed By: #### [id number] #### MARCUS RemHemo [address] [place] [address] Urea nitrogen [Mass/Vol] 11 6-23 mg/dL Normal 03-24 [facility] ( 000) Comment: Performed By: #### [id number] #### MARCUS RemHemo [address] [place] [address] Urea nitrogen/Creatinine 10.0 5.4-30.0 ratio Normal 03-24 [facility] [Mass ratio] [facility] (46060) Comment: Performed By: #### [id number] #### MARCUS RemHem[address] [address] auto diff on 03-24 Basophils (Bld) [#/Vol] 0.0 0.0-0.2 E3/mcL Normal 2018 [facility] tem (86357) Comment: Order Comment: Order Added b y Discern Expert. Performed By: #### [id number] #### MARCUS [address] [address] Basophils/100 WBC (Bld) 0.1 0.0-2.0 % Normal 2018 [facility] (00 000) Comment: Order Comment: Order Added b y Discern Expert. Performed By: #### [id number] #### [address] [address] Eos Absolute 0.1 0.0-0.7 E3/mcL Normal 03-24-2019 [facility] (00372) Comment: Order Comment: Order Added b y Discern Expert. Performed By: #### [id number] #### MARCUS [address] [address] Eosinophils/100 WBC (Bld) 1.7 0.0-11.0 % Normal [facility] (00 000) Comment: Order Comment: Order Added b y Discern Expert. Performed By: #### [id number] #### MARCUS [address] [address] Lymphocytes (Bld) [#/Vol] 1.3 1.2-3.4 E3/mcL Normal [facility] tem (68454) Comment: Order Comment: Order Added b y Discern Expert. Performed By: #### [id number] #### [address] [address] Lymphocytes/100 WBC (Bld) 33.8 20.0-55.0 % Normal [facility] (35914) Comment: Order Comment: Order Added b y Discern Expert. Performed By: #### [id number] #### [address] [address] [place] Absolute 0.4 0.0-0.7 E3/mcL Normal 03-24-2019 [facility] (33321) Comment: Order Comment: Order Added erma lizama Discern Expert. Performed By: #### [id number] #### MARCUS WilcoxHemo [address] [place] [address] Monocytes/100 WBC (Bld) 11.3 0.0-10.0 % High 2018 [facility] (00 000) Comment: Order Comment: Order Added b y Discern Expert. Performed By: #### [id number] #### MARCUS RemHemo [address] [place] [address] Neutro Absolute 2.1 1.4-6.5 E3/mcL Normal 03-24-2019 [facility] (43669) Comment: Order Comment: Order Added erma y Discern Expert. Performed By: #### [id number] #### MARCUS JeriHemo [address] [place] [address] Neutro Auto 53.1 37.0-75.0 % Normal 03-24-2019 [facility] (30144) Comment: Order Comment: Order Added erma y Discern Expert. Performed By: #### [id number] #### MARCUS RemHemo [address] [place] [address] zzplt morph on 2018 Platelet morphology finding NORMAL Normal [facility] (00 000) Comment: Performed By: #### [id number] #### MARCUS RemHemo [address] [place] [address] Platelets (Bld) [#/Vol] DECREASED Normal 2018 [facility] (00 000) Comment: Performed By: #### [id number] #### MARCUS RemHemo [address] [place] [address] xr shoulder complete left on 2019-03-23 XR Shoulder Exam Date/Time: Normal [facility]-23-2019 [facility] Left 03/23/2019 01:05 EDT [facility] System Reason for Exam: (00 000) Fall Report STUDY: XR Shoulder Complete Left;; 03/23/2019 1:05 am INDICATION: Fall. COMPARISON: None. ACCESSION NUMBER(S): [id number] ORDERING CLINICIAN: Narcisa Lo FINDINGS: Five views of the left shoul singh. Normal bone mineralization. No visible acute fractures or dislocations. The joint spac es are maintained. No periosteal reaction or cortical erosive changes. The soft tissues appear unremarkable. IMPRESSION: No visible acute fractures or dislocations. FINAL REPORT Dictated: 03/23/2019 9:52 am Lisa Rushing MD Signed (Electronic Signature): 03/23/2019 9:52 am Signed by: Lisa Rushing MD Technologist: JACKSON tsh on 2019-03-23 TSH Qn 2.75 0.30-5.60 mcIU/mL Normal 03-23-2019 [facility] (00374) Comment: Performed By: #### [id number] #### MARCUS Luong [address] [place] [address] troponin-i on 03-23 Troponin I.cardiac 0.01 0.00-0.03 ng/mL Normal 03-23-2019 [facility] [Mass/Vol] [facility] (25180) Comment: Order Comment: Order Added b y Discern Expert. Performed By: #### [id number] #### MARCUS WilcoxHemo [facility] [place] [address] manual diff on 2018 Anisocytosis Ql (Bld) 1+ Normal 03-23-20 [facility] (34521) Comment: Order Comment: Order Added b y Discern Expert. Performed By: #### [id number] #### MARCUS WilcoxHemo [facility] [place] [address] Basophil Man 0 0-1 % Normal 03-23-2019 [facility] (15207) Comment: Order Comment: Order Added b y Discern Expert. Performed By: #### [id number] #### MARCUSShawn WilcoxHemo [facility] [place] [address] Eosinophils/100 WBC (Bld) 0 0-5 % Normal [facility] (56457) Comment: Order Comment: Order Added b y Discern Expert. Performed By: #### [id number] #### MARCUSShawn WilcoxHemo [facility] [place] [address] Lymphocytes/100 WBC (Bld) 54 14-48 % High [facility] (85340) Comment: Order Comment: Order Added erma Aldana Expert. Performed By: #### [id number] #### MARCUS JeriKarlo [address] [place] [address] Monocyte Man 4 1-11 % Normal 03-23-2019 [facility] (80376) Comment: Order Comment: Order Added erma Aldana Expert. Performed By: #### [id number] #### MARCUSShawn Luong [facility] [place] [id number] RBC morphology finding SEE MORPHOLOGY Normal [facility] Sys tem (33657) Comment: Order Comment: Order Added erma Aldana Expert. Performed By: #### [id number] #### MARCUS JeriRahul [facility] [place] [address] Segs Man 42 37-75 % Normal 03-23-2019 [facility] (20487) Comment: Order Comment: Order Added erma Aldana Expert. Performed By: #### [id number] #### MARCUS JeriRahul [facility] [place] [address] magnesium on 03-23 Magnesium [Mass/Vol] 2.9 1.6-2.4 mg/dL High 9 [facility] (00 000) Comment: Performed By: #### [id number] #### MARCUS Kostaso [facility] [place] [address] egfr on 2019-03-23 GFR/1.73 sq M predicted >60 mL/min/{1.73_m2} Normal 03-23-2019 [facility] among non-blacks [facility] (41023) (S/P/Bld) [Vol rate/Area] Comment: Order Comment: Order Added b y Discern Expert. Performed By: #### [id number] #### MARCUS JeriHemo [facility] [place] [address] GFR/1.73 sq M predicted 56 mL/min/1.73 m2 Normal 0 03-23-2019 [facility] among non-blacks [facility] (92716) (S/P/Bld) [Vol rate/Area] Comment: Order Comment: Order Added b y Discern Expert. Performed By: #### [id number] #### MARCUS WilcoxHemo [address] [place] [address] cbc w/ auto diff on 2019-03-23 Erythrocyte distribution 13.6 11.5-14.5 % Normal 03-23 [facility] width (RBC) [Ratio] Health System (01545) Comment: Performed By: #### [id number] #### MARCUS WilcoxHemo [facility] [place] [address] Hematocrit (Bld) [Volume 36.9 36.0-48.0 % Normal 03-23 [facility]] Health Sys tem (98421) Comment: Performed By: #### [id number] #### MARCUSShawn Kenyono [facility] [place] [address] Hemoglobin (Bld) 12.2 12.0-16.0 G/DL Normal 03-23-2019 [facility] [Mass/Vol] [facility] (39497) Comment: Performed By: #### [id number] #### MARCUS WilcoxHemo [facility] [place] [address] MCH (RBC) [Entitic mass] 30.1 27.0-31.0 pg Normal 03-23 [facility] (00 000) Comment: Performed By: #### [id number] #### MARCUSShawn WilcoxHemo [address] [place] [address] MCHC (RBC) [Mass/Vol] 33.1 33.0-37.0 G/DL Normal 03-23-20 19 [facility] (00 000) Comment: Performed By: #### [id number] #### MARCUSShawn WilcoxHemo [facility] [place] [address] MCV (RBC) [Entitic vol] 91.0 78.0-100.0 fL Normal 03-23 [facility] Sys tem (09145) Comment: Performed By: #### [id number] #### [facility] RemHemo [facility] [place] [address] Platelet mean volume 8.3 7.4-11.0 fL Normal 9 [facility] (Bld) [Entitic vol] System (49068) Comment: Performed By: #### [id number] #### MARCUS JeriHemo [address] [place] [address] Platelets (Bld) [#/Vol] 97 130-400 E3/mcL Low 2018 [facility] (00 000) Comment: Performed By: #### [id number] #### MARCUS JeriHemo [facility] [place] [address] RBC (Bld) [#/Vol] 4.05 3.90-5.40 E6/mcL Normal 03-23-2019 [facility] (00 000) Comment: Performed By: #### [id number] #### MARCUS JeriHemo [facility] [place] [address] WBC (Bld) [#/Vol] 3.0 3.6-11.0 E3/mcL Low 03-23-2019 [facility] (53869) Comment: Performed By: #### [id number] #### MARCUS JeriHemo [facility] [place] [id number] bmp on 2019-03-23 Anion gap [Moles/Vol] 8 10-20 mEq/L Low 03-23-20 19 [facility] (99238) Comment: Performed By: #### [id number] #### MARCUS JeriHemo [facility] [place] [address] Calcium [Mass/Vol] 7.8 8.6-10.3 mg/dL Low 03-23-2019 [facility] (40322) Comment: Performed By: #### [id number] #### MARCUS JeriHemo [facility] [place] [address] Chloride [Moles/Vol] 111 98-107 mEq/L High 9 [facility] (00 000) Comment: Performed By: #### [id number] #### MARCUS JeriHemo [address] [place] [address] CO2 [Moles/Vol] 22.0 21.0-32.0 mEq/L Normal 03-23-2019 [facility] (00 000) Comment: Performed By: #### [id number] #### MARCUS RemHemo [facility] [place] [address] Creatinine [Mass/Vol] 1.1 0.5-1.1 mg/dL Normal 03-23-20 [facility] (00 000) Comment: Performed By: #### [id number] #### MARCUS Kenyono [address] [place] [address] Glucose [Mass/Vol] 102 70-99 mg/dL High 03-23-2019 [facility] (11838) Comment: Performed By: #### [id number] #### MARCUS Kenyono [facility] [place] [address] Potassium [Moles/Vol] 3.5 3.5-5.3 mEq/L Normal 03-23-20 19 [facility] (00 000) Comment: Performed By: #### [id number] #### MARCUS Luong [facility] [place] [address] Sodium [Moles/Vol] 138 136-145 mEq/L Normal 03-23-2019 [facility] (00 000) Comment: Performed By: #### [id number] #### MARCUS Luong [address] [place] [address] Urea nitrogen [Mass/Vol] 9 6-23 mg/dL Normal 03-23 [facility] (00 000) Comment: Performed By: #### [id number] #### MARCUS Luong [facility] [place] [address] Urea nitrogen/Creatinine 8.2 5.4-30.0 ratio Normal 03-23 [facility] (22489[facility] Comment: Performed By: #### [id number] #### MARCUS Kenyono [facility] [place] [address] .manual abs on 2018 Basophil Abs Man 0.0 0.0-0.2 10x3/ Normal 03-23-2019 [facility] (93607) Comment: Order Comment: Order Added b y Discern Expert. Performed By: #### [id number] #### MARCUS Kenyono [address] [place] [address] Eos Abs Man 0.0 0.0-0.5 10x3/ Normal 03-23-2019 [facility] (77142) Comment: Order Comment: Order Added erma Aldana Expert. Performed By: #### [id number] #### MARCUS Kenyono [address] [place] [address] Lymph Abs Man 1.6 1.2-3.4 10x3/ Normal 03-23-2019 [facility] (86424) Comment: Order Comment: Order Added erma y Discern Expert. Performed By: #### [id number] #### MARCUS WilcoxHemo [address] [place] [address] [place] Abs Man 0.1 0.0-0.7 10x3/ Normal 03-23-2019 [facility] (76466) Comment: Order Comment: Order Added erma y Katya Expert. Performed By: #### [id number] #### MARCUS Kenyono [address] [place] [address] Segs Abs Man 1.3 1.4-6.5 10x3/ Low 03-23-2019 [facility] (93640) Comment: Order Comment: Order Added erma Aldana Expert. Performed By: #### [id number] #### MARCUS WilcoxHemo [address] [place] [address] xr chest ap portable on 2019-03-22 XR Chest AP Exam Date/Time: Normal 03-22-2019 [facility] Portable 03/22/2019 20:26 EDT H ealt System Reason for Exam: (00 000) Chest pain Report STUDY: XR Chest AP Portable; 03/22/2019 8:26 pm INDICATION: Chest pain. COMPARISON: 12/21/2018 ACCESSION NUMBER(S): [id number] ORDERING CLINICIAN: Xuan Garcia FINDINGS: Single portable AP view of the chest. There is no new focal consol idation, pleural effusion, or pneumothorax. The cardiomediastinal silhouette is stable in size and morphology. No acute osseous abnormality. Radiopaque ring projected over the level of the gastroesophageal junction is again present. IMPRESSION: 1. No evidence of acute cardiopulmonary process. FINAL REPORT Dictated: 03/22/2019 8:37 pm Lacy Alvarez MD Signed (Electronic Signature): 03/22/2019 8:37 pm Signed by: Lacy Alvarez MD M Technologist: [facility] troponin-i on 03-22 Troponin I.cardiac 0.01 0.00-0.03 ng/mL Normal 03-22-2019 [facility] [Mass/Vol] [facility] (06223) Comment: Performed By: #### [id number] #### MARCUS Kostaso [facility] [place] [address] magnesium on 03-22 Magnesium [Mass/Vol] 1.6 1.6-2.4 mg/dL Normal 9 [facility] (00 000) Comment: Performed By: #### [id number] #### MRACUSShawn WilcoxA.O. [facility] Hospitalo [facility] [place] [id number] egfr on 2019-03-22 GFR/1.73 sq M predicted >60 mL/min/{1.73_m2} Normal 03-22-2019 [facility] among non-blacks [facility] (75094) (S/P/Bld) [Vol rate/Area] Comment: Order Comment: Order Added b y Discern Expert. Performed By: #### [id number] #### MARCUSShawn WilcoxKarlo [address] [place] [address] GFR/1.73 sq M predicted 52 mL/min/1.73 m2 Normal 0 03-22-2019 [facility] among non-blacks [facility] (66512) (S/P/Bld) [Vol rate/Area] Comment: Order Comment: Order Added b y Discern Expert. Performed By: #### [id number] #### MARCUSShawn WilcoxHemo [facility] [place] [id number] cbc w/ auto diff on 2019-03-22 Erythrocyte distribution 13.5 11.5-14.5 % Normal 03-22 [facility] width (RBC) [Ratio] Health System (97866) Comment: Performed By: #### [id number] #### MARCUSShawn Kenyono [facility] [place] [address] Hematocrit (Bld) [Volume 37.5 36.0-48.0 % Normal 03-22 [facility] fraction] Health Sys tem (58870) Comment: Performed By: #### [id number] #### MARCUS WilcoxHemo [address] [place] [address] Hemoglobin (Bld) 12.8 12.0-16.0 G/DL Normal 03-22-2019 [facility] [Mass/Vol] [facility] (39845) Comment: Performed By: #### [id number] #### MARCUS WilcoxHemo [facility] [place] [address] MCH (RBC) [Entitic mass] 30.9 27.0-31.0 pg Normal 03-22 [facility] (00 000) Comment: Performed By: #### [id number] #### MARCUS JeriHemo [facility] [place] [address] MCHC (RBC) [Mass/Vol] 34.1 33.0-37.0 G/DL Normal 03-22-20 19 [facility] ( 000) Comment: Performed By: #### [id number] #### MARCUS WilcoxHemo [address] [place] [address] MCV (RBC) [Entitic vol] 90.6 78.0-100.0 fL Normal 03-22 [facility] (97138) Comment: Performed By: #### [id number] #### MARCUS JeriHemo [facility] [place] [address] Platelet mean volume 8.3 7.4-11.0 fL Normal 9 [facility] (Bld) [Entitic vol] System (91015) Comment: Performed By: #### [id number] #### MARCUS WilcoxHemo [facility] [place] [address] Platelets (Bld) [#/Vol] 113 130-400 E3/mcL Low 2018 [facility] (00 000) Comment: Performed By: #### [id number] #### MARCUS JeriHemo [facility] [place] [address] RBC (Bld) [#/Vol] 4.14 3.90-5.40 E6/mcL Normal 03-22-2019 [facility] (00 000) Comment: Performed By: #### [id number] #### M[facility]US [facility] [place] [address] WBC (Bld) [#/Vol] 4.1 3.6-11.0 E3/mcL Normal 03-22-2019 S [facility] () Comment: Performed By: #### [id number] #### MARCUS JeriHemo [address] [place] [address] bmp on 2019-03-22 Anion gap [Moles/Vol] 13 10-20 mEq/L Normal 03-22-20 [facility] () Comment: Performed By: #### [id number] #### MARCUS RemHemo [address] [place] [address] Calcium [Mass/Vol] 8.4 8.6-10.3 mg/dL Low 03-22-2019 [facility] (38557) Comment: Performed By: #### [id number] #### MARCUS JeriHemo [address] [place] [address] Chloride [Moles/Vol] 110 98-107 mEq/L High [facility] () Comment: Performed By: #### [id number] #### MARCUS RemHemo [address] [place] [address] CO2 [Moles/Vol] 21.0 21.0-32.0 mEq/L Normal 03-22-2019 [facility] () Comment: Performed By: #### [id number] #### MARCUS JeriHemo [address] [place] [address] Creatinine [Mass/Vol] 1.1 0.5-1.1 mg/dL Normal 03-22-20 [facility] () Comment: Performed By: #### [id number] #### MARCUS RemHemo [address] [place] [address] Glucose [Mass/Vol] 95 70-99 mg/dL Normal 03-22-2019 [facility] (06096) Comment: Performed By: #### [id number] #### MARCUS RemHemo [address] [place] [address] Potassium [Moles/Vol] 4.0 3.5-5.3 mEq/L Normal 03-22-20 [facility] () Comment: Performed By: #### [id number] #### MARCUS Kenyono [address] [place] [address] Sodium [Moles/Vol] 139 136-145 mEq/L Normal 03-22-2019 [facility] () Comment: Performed By: #### [id number] #### MARCUS Kenyon[address] [address] Urea nitrogen [Mass/Vol] 10 6-23 mg/dL Normal 03-22 [facility] () Comment: Performed By: #### [id number] #### MARCUS Kenyon[address] [address] Urea nitrogen/Creatinine 9.1 5.4-30.0 ratio Normal 03-22 [facility] [Mass ratio] [facility] (49580) Comment: Performed By: #### [id number] #### MARCUS [address] [address] auto diff on 03-22 Basophils (Bld) [#/Vol] 0.0 0.0-0.2 E3/mcL Normal 2018 [facility] (67544) Comment: Order Comment: Order Added b y Discern Expert. Performed By: #### [id number] #### MARCUS Kenyon[address] [address] Basophils/100 WBC (Bld) 0.4 0.0-2.0 % Normal 2018 [facility] () Comment: Order Comment: Order Added b y Discern Expert. Performed By: #### [id number] #### MARCUS Kenyon[address] [address] Eos Absolute 0.1 0.0-0.7 E3/mcL Normal 03-22-2019 [facility] (19662) Comment: Order Comment: Order Added b y Discern Expert. Performed By: #### [id number] #### MARCUSShawn Kenyon[address] [address] Eosinophils/100 WBC (Bld) 2.0 0.0-11.0 % Normal [facility] ( 000) Comment: Order Comment: Order Added b y Discern Expert. Performed By: #### [id number] #### MARCUS WilcoxHemo [address] [place] [address] Lymphocytes (Bld) [#/Vol] 1.1 1.2-3.4 E3/mcL Low [facility] (00 000) Comment: Order Comment: Order Added b y Discern Expert. Performed By: #### [id number] #### MARCUS Kenyono [address] [place] [address] Lymphocytes/100 WBC (Bld) 27.1 20.0-55.0 % Normal [facility] (14487) Comment: Order Comment: Order Added b y Discern Expert. Performed By: #### [id number] #### MARCUS Kenyono [address] [place] [address] [place]orte Absolute 0.5 0.0-0.7 E3/mcL Normal 03-22-2019 [facility] (40738) Comment: Order Comment: Order Added b y Discern Expert. Performed By: #### [id number] #### MARCUS Kenyono [address] [place] [address] Monocytes/100 WBC (Bld) 11.0 0.0-10.0 % High 2018 [facility] (00 000) Comment: Order Comment: Order Added b y Discern Expert. Performed By: #### [id number] #### MARCUS Kenyono [address] [place] [address] Neutro Absolute 2.5 1.4-6.5 E3/mcL Normal 03-22-2019 [facility] (79273) Comment: Order Comment: Order Added b y Discern Expert. Performed By: #### [id number] #### MARCUS WilcoxHemo [address] [place] [address] Neutro Auto 59.5 37.0-75.0 % Normal 03-22-2019 [facility] (06955) Comment: Order Comment: Order Added b y Discern Expert. Performed By: #### [id number] #### MARCUS WilcoxHemo [address] [place] [address] ua complete on 2018 Color (U) Yellow Yellow Normal 03-19-2019 [facility] (98265) Comment: Order Comment: Order Added erma Aldana Expert. Performed By: #### [id number] #### MARCUS JeriHemo [address] [place] [address] Glucose (U) [Mass/Vol] Negative Negative mg/dL Normal 019 [facility] (73681) Comment: Order Comment: Order Added erma Aldana Expert. Performed By: #### [id number] #### MARCUSShawn WilcoxHemo [address] [place] [address] Ketones Ql (U) Negative Negative Normal 03-19-[address] [facility] (59084) Comment: Order Comment: Order Added erma Aldana Expert. Performed By: #### [id number] #### MARCUS JeriHemo [facility] [place] [address] RBC (U) [#/Vol] 0-3 0-3 Normal 03-19-2019 [facility] (80925) Comment: Order Comment: Order Added erma Aldana Expert. Performed By: #### [id number] #### MARCUSShawn WilcoxHemo [address] [place] [address] UA Blood Negative Negative Normal 03-19-2019 [facility] (90684) Comment: Order Comment: Order Added erma Aldana Expert. Performed By: #### [id number] #### MARCUS JeriHemo [address] [place] [address] UA Clarity SltCloudy Clear Abnormal 03-19-[address] [facility] (91738) Comment: Order Comment: Order Added erma Aldana Expert. Performed By: #### [id number] #### MARCUSShawn WilcoxHemo [address] [place] [address] UA Hyal Cast 3-5 0-2 Abnormal 03-19-2019 [facility] (62031) Comment: Order Comment: Order Added erma Aldana Expert. Performed By: #### [id number] #### MARCUS RemHemo [address] [place] [address] UA Leuk Est 1+ Negative Abnormal 03-19-2019 [facility] (19876) Comment: Order Comment: Order Added erma Aldana Expert. Performed By: #### [id number] #### MARCUS RemHemo [address] [place] [address] UA Mucous Trace Trace Abnormal 03-19-2019 [facility] (72797) Comment: Order Comment: Order Added erma Aldana Expert. Performed By: #### [id number] #### MARCUS WilcoxHemo [address] [place] [address] UA Nitrite Negative Negative Normal 03-19-[address] [facility] (91532) Comment: Order Comment: Order Added erma Aldana Expert. Performed By: #### [id number] #### MARCUS JeriHemo [address] [place] [address] UA pH 5.0 4.6-8.0 Normal 03-19-2019 [facility] (97506) Comment: Order Comment: Order Added erma Aldana Expert. Performed By: #### [id number] #### MARCUS WilcoxHemo [facility] [place] [address] UA Protein Negative Negative Normal 03-19-[address] [facility] (02481) Comment: Order Comment: Order Added erma Aldana Expert. Performed By: #### [id number] #### MARCUS RemHemo [address] [place] [address] UA Spec Grav 1.010 1.003-1.030 Normal 03-19-[address] [facility] (17145) Comment: Order Comment: Order Added erma Aldana Expert. Performed By: #### [id number] #### MARCUS RemHemo [address] [place] [address] UA Squam Epithelial 10-20 0-5 Abnormal 03-19-2019 [facility] (18405) Comment: Order Comment: Order Added erma Aldana Expert. Performed By: #### [id number] #### MARCUS RemHemo [address] [place] [address] UA Urobilinogen Negative Normal 03-19-2019 [facility] (47229) Comment: Order Comment: Order Added erma Aldana Expert. Result Comment: Due to a man ufacturing issue, low positive urobilinogen results may be fasely positi ve. Correlate with urine bilirubin and additional clinical/laborato ry findings to assess the risk of hemolytic anemia or liver disease. If clinically indicated, repeat testing with an alternate method is availabl e by contacting the laboratory within 24 hours. Performed By: #### [id number] #### MARCUS Kenyono [facility] [place] [address] UA WBC 0-5 0-5 Normal 03-19-2019 [facility] (78575) Comment: Order Comment: Order Added erma Aldana Expert. Performed By: #### [id number] #### MARCUS Kostascorky [address] [place], [place] [id number] Urobilinogen Qn (U) Negative Negative Normal 03-19-2019 [facility] (00 000) Comment: Order Comment: Order Added erma Aldana Expert. Performed By: #### [id number] #### MARCUS Kostascorky [address] [place] [address] ionized calcium poc order on 2019-03-18 Ionized Calcium POC Order Collected Normal 06- [facility] (00 000) Comment: Performed By: #### [id number] #### [place]US [place] [id number] ionized calcium lvl on 2019-03-18 Ionized Ca. 4.5 4.5-5.6 mg/dL Normal 03-18-2019 [facility] (58230) Comment: Performed By: #### [id number] #### MARCUS Kostascorky [address] [place] [address] egfr on 2019-03-18 GFR/1.73 sq M predicted 56 mL/min/1.73 m2 Normal 0 03-18-2019 [facility] among non-blacks [facility] (54489) (S/P/Bld) [Vol rate/Area] Comment: Order Comment: Order Added erma y Discern Expert. Performed By: #### [id number] #### MARCUS Kostaso [address] [place] [address] GFR/1.73 sq M predicted 46 mL/min/1.73 m2 Normal 0 03-18-2019 [facility] among non-blacks [facility] (43813) (S/P/Bld) [Vol rate/Area] Comment: Order Comment: Order Added erma y Discern Expert. Performed By: #### [id number] #### MARCUS RemHemo [address] [place] [address] ct head or brain w/o contrast on 2019-03-18 CT Head or Brain Exam Date/Time: Normal 019 [facility] w/o Contrast 03/18/2019 21:34 EDT Health System Reason for Exam: (00 000) Altered mental status Report STUDY: CT Head or Brain w/o Contrast; 03/18/2019 9:34 pm INDICATION: Altered mental status. COMPARISON: 03/16/2019 ACCESSION NUMBER(S): [id number] ORDERING CLINICIAN: Ac Gao TECHNIQUE: Noncontrast CT images of head. FINDINGS: No significant interval change. BRAIN PARENCHYMA: Amaral-white matter interfaces are preserved. No mass, mass effect or midline shift. Subtle nonspecific wh ite matter hypoattenuation likely represents chronic small vessel ischemic disease. HEMORRHAGE: No acute intracranial hemorrhage. VENTRICLES and EXTRA-AXIAL SPACES: Normal size. EXTRACRANIAL SOFT TISSUES: Within normal limits. PARANASAL SINUSES/MASTOIDS: Within normal limits. CALVARIUM: No depressed acute skull fracture. IMPRESSION: No acute infarct or hemorrha ge. MRI is more sensitive for the evaluation. Given the recent negative head CT, MRI is recommended for further evaluation. FINAL REPORT Dictated: 03/18/2019 9:44 pm Nicole Anderson MD Signed (Electronic Signature): 03/18/2019 9:44 pm Signed by: Nicloe Anderson MD Technologist: AM cbc w/ auto diff on 2019-03-18 Erythrocyte distribution 14.1 11.5-14.5 % Normal 03-18 [facility] width (RBC) [Ratio] [facility] (52731) Comment: Performed By: #### [id number] #### MARCUS RemHemo [address] [place] [address] Hematocrit (Bld) [Volume 40.4 36.0-48.0 % Normal 03-18 [facility]] [facility] (31178) Comment: Performed By: #### [id number] #### MARCUS RemHemo [address] [place] [address] Hemoglobin (Bld) 13.4 12.0-16.0 G/DL Normal 03-18-2019 [facility] [Mass/Vol] [facility] (52268) Comment: Performed By: #### [id number] #### MARCUSShawn WilcoxHemo [address] [place] [address] MCH (RBC) [Entitic mass] 30.2 27.0-31.0 pg Normal 03-18 [facility] (00 000) Comment: Performed By: #### [id number] #### MARCUS JeriHemo [facility] [place] [address] MCHC (RBC) [Mass/Vol] 33.1 33.0-37.0 G/DL Normal 03-18-20 19 [facility] () Comment: Performed By: #### [id number] #### MARCUS JeriHemo [facility] [place] [address] MCV (RBC) [Entitic vol] 91.3 78.0-100.0 fL Normal 03-18 [facility] (80707) Comment: Performed By: #### [id number] #### MARCUSShawn WilcoxHemo [facility] [place] [address] Platelet mean volume 8.0 7.4-11.0 fL Normal 9 [facility] (Bld) [Entitic vol] System (00615) Comment: Performed By: #### [id number] #### MARCUS JeriHemo [address] [place] [address] Platelets (Bld) [#/Vol] 123 130-400 E3/mcL Low 2018 [facility] (00 000) Comment: Performed By: #### [id number] #### MARCUS RemHemo [address] [place] [address] RBC (Bld) [#/Vol] 4.43 3.90-5.40 E6/mcL Normal 03-18-2019 [facility] (00 000) Comment: Performed By: #### [id number] #### MARCUS RemHemo [address] [place] [address] WBC (Bld) [#/Vol] 4.3 3.6-11.0 E3/mcL Normal 03-18-2019 [facility] (00 000) Comment: Performed By: #### [id number] #### MARCUS JeriHemo [address] [place] [address] bmp on 2019-03-18 Anion gap [Moles/Vol] 11 10-20 mEq/L Normal 03-18-20 [facility] (00 000) Comment: Performed By: #### [id number] #### MARCUS JeriHemo [address] [place] [address] Calcium [Mass/Vol] 8.8 8.6-10.3 mg/dL Normal 03-18-2019 [facility] (00 000) Comment: Performed By: #### [id number] #### MARCUS JeriHemo [address] [place] [address] Chloride [Moles/Vol] 110 98-107 mEq/L High [facility] () Comment: Performed By: #### [id number] #### MARCUS RemHemo [facility] [place] [address] CO2 [Moles/Vol] 20.0 21.0-32.0 mEq/L Low 03-18-2019 [facility] (10486) Comment: Performed By: #### [id number] #### MARCUS JeriHemo [facility] [place] [address] Creatinine [Mass/Vol] 1.2 0.5-1.1 mg/dL High 03-18-20 [facility] (00 000) Comment: Performed By: #### [id number] #### MARCUS RemHemo [address] [place] [address] Glucose [Mass/Vol] 90 70-99 mg/dL Normal 03-18-2019 [facility] (42348) Comment: Performed By: #### [id number] #### MARCUS RemHemo [address] [place] [address] Potassium [Moles/Vol] 4.0 3.5-5.3 mEq/L Normal 03-18-20 [facility] (00 000) Comment: Performed By: #### [id number] #### MARCUS RemHemo [address] [place] [address] Sodium [Moles/Vol] 137 136-145 mEq/L Normal 03-18-2019 [facility] (00 000) Comment: Performed By: #### [id number] #### MARCUS Kenyon[address] [address] Urea nitrogen [Mass/Vol] 9 6-23 mg/dL Normal 03-18 [facility] (00 000) Comment: Performed By: #### [id number] #### [place]US [place] [id number] Urea nitrogen/Creatinine 7.5 5.4-30.0 ratio Normal 03-18 [facility] [Mass ratio] [facility] (66403) Comment: Performed By: #### [id number] #### MARCUS [address] [address] auto diff on 03-18 Basophils (Bld) [#/Vol] 0.0 0.0-0.2 E3/mcL Normal 2018 [facility] (21181) Comment: Order Comment: Order Added b y Discern Expert. Performed By: #### [id number] #### MARCUS Kenyon[address] [address] Basophils/100 WBC (Bld) 0.5 0.0-2.0 % Normal 2018 [facility] (00 000) Comment: Order Comment: Order Added b y Discern Expert. Performed By: #### [id number] #### MARCUS Kenyon[address] [address] Eos Absolute 0.1 0.0-0.7 E3/mcL Normal 03-18-2019 [facility] (37644) Comment: Order Comment: Order Added b y Discern Expert. Performed By: #### [id number] #### MARCUSShawn Kenyon[address] [address] Eosinophils/100 WBC (Bld) 2.2 0.0-11.0 % Normal [facility] (00 000) Comment: Order Comment: Order Added b y Discern Expert. Performed By: #### [id number] #### MARCUS [address] [address] Lymphocytes (Bld) [#/Vol] 1.3 1.2-3.4 E3/mcL Normal [facility] (87276) Comment: Order Comment: Order Added erma Aldana Expert. Performed By: #### [id number] #### MARCUS Kenyon[address] [address] Lymphocytes/100 WBC (Bld) 30.1 20.0-55.0 % Normal [facility] (52874) Comment: Order Comment: Order Added b y Discern Expert. Performed By: #### [id number] #### MARCUS WilcoxHemo [address] [place] [address] [place] Absolute 0.4 0.0-0.7 E3/mcL Normal 03-18-2019 [facility] (04942) Comment: Order Comment: Order Added b y Discern Expert. Performed By: #### [id number] #### MARCUS Kenyon[address] [address] Monocytes/100 WBC (Bld) 9.9 0.0-10.0 % Normal 2018 [facility] (00 000) Comment: Order Comment: Order Added b dl Discern Expert. Performed By: #### [id number] #### MARCUS Kenyono [address] [place] [address] Neutro Absolute 2.5 1.4-6.5 E3/mcL Normal 03-18-2019 [facility] (79530) Comment: Order Comment: Order Added erma lizama Discern Expert. Performed By: #### [id number] #### MARCUS WilcoxHemo [address] [place] [address] Neutro Auto 57.3 37.0-75.0 % Normal 03-18-2019 [facility] (96031) Comment: Order Comment: Order Added b y Discern Expert. Performed By: #### [id number] #### MARCUSShawn WilcoxHemo [address] [place] [address] lactic acid on 2018 Lactate [Moles/Vol] 1.2 0.4-2.0 mmol/L Normal 03-16-2019 [facility] (00 000) Comment: Performed By: #### [id number] #### MARCUS RemHemo [address] [place] [address] egfr on 2019-03-16 GFR/1.73 sq M predicted 58 mL/min/1.73 m2 Normal 0 03-16-2019 [facility] among non-blacks [facility] (27139) (S/P/Bld) [Vol rate/Area] Comment: Order Comment: Order Added erma Aldana Expert. Performed By: #### [id number] #### MARCUS RemHemo [address] [place] [address] GFR/1.73 sq M predicted 48 mL/min/1.73 m2 Normal 0 03-16-2019 [facility] among non-blacks [facility] (73306) (S/P/Bld) [Vol rate/Area] Comment: Order Comment: Order Added erma Aldana Expert. Performed By: #### [id number] #### MARCUS RemHemo [facility] [place] [address] ct spine cervical w/o contrast on 2019-03-16 CT Spine Exam Date/Time: Normal 03-16-2019 [facility] Cervical w/o 03/16/2019 00:08 EDT [facility] Contrast Reason for Exam: Cristy duncan (83900) Trauma Report STUDY: CT Spine Cervical w/o Contrast; 03/16/2019 12:46 am INDICATION: Trauma. COMPARISON: None. ACCESSION NUMBER(S): [id number] ORDERING CLINICIAN: Caren Lozano TECHNIQUE: Axial noncontrast images of the cervical spine with coronal and sagittal reconstructed images. FINDINGS: There is straightening/rever yusuf of the normal cervical lordosis probably positional artifact rather than acute injury. There is mild multilevel spo ndylosis, small polyp/mucous retention cyst left maxillary sinus; the other paranasal sinuses and mastoid air cells are unremarkab le. Otherwise: ALIGNMENT: Normal. VERTEBRAE: No acute fracture. SPINAL CANAL: No critical spinal canal stenosis. PREVERTEBRAL SOFT TISSUES: No prevertebral soft tissue swell ing. LUNG APICES: Opacities in the lung apices likely represent a telectasis. IMPRESSION: No acute fracture or traumatic subluxation of the cervical s pine. FINAL REPORT Dictated: 03/16/2019 2:40 am Nicole Anderson MD Signed (Electronic Signature): 03/16/2019 2:40 am Signed by: Nicole Anderson MD Technologist: TAMIKO ct head or brain w/o contrast on 2019-03-16 CT Head or Brain Exam Date/Time: Normal [facility] w/o Contrast 03/16/2019 00:08 [facility] Reason for Exam: (00 000) Injury Report STUDY: CT Head or Brain w/o Contrast; 03/16/2019 12:46 am INDICATION: Injury. COMPARISON: 12/01/2018 ACCESSION NUMBER(S): [id number] ORDERING CLINICIAN: Caren Lozano TECHNIQUE: Noncontrast CT images of head. FINDINGS: No significant interval change. BRAIN PARENCHYMA: Amaral-white matter interfaces are preserved. No mass, mass effect or midline shift. Subtle nonspecific wh ite matter hypoattenuation likely represents chronic small vessel ischemic disease. HEMORRHAGE: No acute intracranial hemorrhage. VENTRICLES and EXTRA-AXIAL SPACES: Normal size. EXTRACRANIAL SOFT TISSUES: Small acute posterior high scalp hematoma/injury. PARANASAL SINUSES/MASTOIDS: Within normal limits. CALVARIUM: No depressed acute skull fracture. IMPRESSION: No acute intracranial abnormality. FINAL REPORT Dictated: 03/16/2019 2:35 am Nicole Anderson MD Signed (Electronic Signature): 03/16/2019 2:35 am Signed by: Nicole Anderson MD Technologist: TAMIKO cmp on 2019-03-16 Albumin [Mass/Vol] 4.2 3.4-5.0 gm/dL Normal 03-16-2019 [facility] (00 000) Comment: Performed By: #### [id number] #### MARCUS RemHemo [address] [place] [address] Albumin/Globulin [Mass 1.7 1.1-1.9 ratio Normal 019 [facility] (06149) Comment: Performed By: #### [id number] #### MARCUS RemHemo [address] [place] [address] Alk Phos 104 33-110 Int._Unit/L Normal 03-16-2019 [facility] (95967) Comment: Performed By: #### [id number] #### MARCUS JeriHemo [address] [place] [address] ALT [Catalytic 31 7-45 Int._Unit/L Normal 03-16-[address] [facility] (92497) Comment: Performed By: #### [id number] #### MARCUS JeriHemo [address] [place] [address] Anion gap [Moles/Vol] 12 10-20 mEq/L Normal 03-16-20 19 [facility] (00 000) Comment: Performed By: #### [id number] #### MARCUS JeriHemo [facility] [place] [address] AST [Catalytic 37 9-39 Int._Unit/L Normal 03-16-[address] [facility] (17875) Comment: Performed By: #### [id number] #### MARCUS JeriHemo [facility] [place] [address] Bili Total 0.79 0.00-1.20 mg/dL Normal 03-16-[address] [facility] (05233) Comment: Performed By: #### [id number] #### MARCUS JeriHemo [facility] [place] [address] Calcium [Mass/Vol] 8.8 8.6-10.3 mg/dL Normal 03-16-2019 [facility] (00 000) Comment: Performed By: #### [id number] #### MARCUS JeriHemo [facility] [place] [address] Chloride [Moles/Vol] 110 98-107 mEq/L High 9 [facility] (00 000) Comment: Performed By: #### [id number] #### MARCUS JeriHemo [address] [place] [address] CO2 [Moles/Vol] 20.0 21.0-32.0 mEq/L Low 03-16-2019 [facility] (44079) Comment: Performed By: #### [id number] #### MARCUS RemHemo [address] [place] [address] Creatinine [Mass/Vol] 1.2 0.5-1.1 mg/dL High 03-16-20 [facility] () Comment: Performed By: #### [id number] #### MARCUS RemHemo [address] [place] [address] Globulin (S) [Mass/Vol] 3.0 2.0-4.0 G/DL Normal 2018 [facility] () Comment: Performed By: #### [id number] #### MARCUS RemHemo [facility] [place] [address] Glucose [Mass/Vol] 114 70-99 mg/dL High 03-16-2019 [facility] () Comment: Performed By: #### [id number] #### MARCUS RemHemo [facility] [place] [address] Potassium [Moles/Vol] 3.4 3.5-5.3 mEq/L Low 03-16-20 [facility] () Comment: Performed By: #### [id number] #### MARCUS RemHemo [facility] [place] [address] Protein [Mass/Vol] 6.7 6.4-8.2 gm/dL Normal 03-16-2019 [facility] () Comment: Performed By: #### [id number] #### MARCUS RemHemo [facility] [place] [address] Sodium [Moles/Vol] 139 136-145 mEq/L Normal 03-16-2019 [facility] () Comment: Performed By: #### [id number] #### MARCUS RemHemo [facility] [place] [address] Urea nitrogen [Mass/Vol] 9 6-23 mg/dL Normal 03-16 [facility] () Comment: Performed By: #### [id number] #### MARCUS RemHemo [address] [place] [address] Urea nitrogen/Creatinine 7.5 5.4-30.0 ratio Normal 03-16 [facility] [[facility] (15053) Comment: Performed By: #### [id number] #### MARCUSShawn WilcoxHemo [address] [place] [address] cbc w/ auto diff on 2019-03-16 Erythrocyte distribution 13.9 11.5-14.5 % Normal 03-16 [facility] width (RBC) [Ratio] [facility] (42242) Comment: Performed By: #### [id number] #### MARCUS WilcoxHemo [facility] [place] [address] Hematocrit (Bld) [Volume 40.6 36.0-48.0 % Normal 03-16 [facility]] Health [facility] tem (40589) Comment: Performed By: #### [id number] #### MARCUSShawn WilcoxHemo [facility] [place] [address] Hemoglobin (Bld) 13.5 12.0-16.0 G/DL Normal 03-16-2019 [facility] [Mass/Vol] Health [facility] (02943) Comment: Performed By: #### [id number] #### MARCUSShawn WilcoxHemo [address] [place] [address] 73976 MCH (RBC) [Entitic mass] 30.4 27.0-31.0 pg Normal 03-16 [facility] (00 000) Comment: Performed By: #### [id number] #### MARCUSShawn WilcoxHemo [address] [place] [address] 84666 MCHC (RBC) [Mass/Vol] 33.3 33.0-37.0 G/DL Normal 03-16-20 19 [facility] (00 000) Comment: Performed By: #### [id number] #### [facility] [address] [place] [address] 89734 MCV (RBC) [Entitic vol] 91.4 78.0-100.0 fL Normal 03-16 [facility] (19293) Comment: Performed By: #### [id number] #### [facility] [address] [place] [address] 15803 Platelet mean volume 8.3 7.4-11.0 fL Normal 9 [facility] (Bld) [Entitic vol] System (23929) Comment: Performed By: #### [id number] #### MARCUS Kenyono [address] [place] [address] 35465 Platelets (Bld) [#/Vol] 118 130-400 E3/mcL Low 2018 [facility] () Comment: Performed By: #### [id number] #### MARCUS Wilcox[address] [address] RBC (Bld) [#/Vol] 4.45 3.90-5.40 E6/mcL Normal 03-16-2019 [facility] () Comment: Performed By: #### [id number] #### MARCUS [address] [address] WBC (Bld) [#/Vol] 4.4 3.6-11.0 E3/mcL Normal 03-16-2019 [facility] () Comment: Performed By: #### [id number] #### MARCUS [address] [address] auto diff on 03-16 Basophils (Bld) [#/Vol] 0.0 0.0-0.2 E3/mcL Normal 2018 [facility] (33288) Comment: Order Comment: Order Added b y Discern Expert. Performed By: #### [id number] #### MARCUS Kenyono [address] [place] [address] 27531 Basophils/100 WBC (Bld) 0.9 0.0-2.0 % Normal 2018 [facility] () Comment: Order Comment: Order Added b y Discern Expert. Performed By: #### [id number] #### MARCUS Kenyono [address] [place] [address] 30798 Eos Absolute 0.1 0.0-0.7 E3/mcL Normal 03-16-2019 [facility] (83667) Comment: Order Comment: Order Added b y Discern Expert. Performed By: #### [id number] #### MARCUS [address] [address] Eosinophils/100 WBC (Bld) 2.6 0.0-11.0 % Normal 02-17 [facility] () Comment: Order Comment: Order Added b y Discern Expert. Performed By: #### [id number] #### MARCUS RemHemo [address] [place] [address] Lymphocytes (Bld) [#/Vol] 1.0 1.2-3.4 E3/mcL Low 02-17 [facility] (00 000) Comment: Order Comment: Order Added b y Discern Expert. Performed By: #### [id number] #### MARCUS WilcoxHemo [facility] [place] [address] Lymphocytes/100 WBC (Bld) 23.0 20.0-55.0 % Normal 02-17 [facility] (93967) Comment: Order Comment: Order Added b y Discern Expert. Performed By: #### [id number] #### MARCUS WilcoxHemo [address] [place] [address] Laporte Absolute 0.3 0.0-0.7 E3/mcL Normal 03-16-2019 [facility] (14403) Comment: Order Comment: Order Added b y Discern Expert. Performed By: #### [id number] #### MARCUS RemHemo [address] [place] [address] 33068 Monocytes/100 WBC (Bld) 6.8 0.0-10.0 % Normal 2018 [facility] (00 000) Comment: Order Comment: Order Added b y Discern Expert. Performed By: #### [id number] #### MARCUS RemHemo [address] [place] [address] 22298 Neutro Absolute 2.9 1.4-6.5 E3/mcL Normal 03-16-2019 [facility] (82486) Comment: Order Comment: Order Added b y Discern Expert. Performed By: #### [id number] #### MARCUS RemHemo [address] [place] [address] 53519 Neutro Auto 66.7 37.0-75.0 % Normal 03-16-2019 [facility] (96574) Comment: Order Comment: Order Added b y Discern Expert. Performed By: #### [id number] #### MARCUS RemHemo [address] [place] [address] No panel information on 2019-03-16 Aleksey Longoria MD 03-16-2019 [facility] 03/16/2019 4:19 PM ( 48507) [facility] EEG Report Reason for EEG: Seizures. Summary: This is a 16 channel digital EEG recording. There is a moderately well-developed, moderately well-organized background activity with the dominant rhythm of 8 Hz with occasional diffuse 6 to 7 Hz activity. There are intermittent muscle and movement artifacts. Hyperventilation and photic stimulations were not done. The patient became drowsy went to sleep. No clear epileptiform discharges were seen. Impression: This is an abnormal EEG due to presence of intermittent background slowing suggesting a mild degree of generalized nonspecific neurophysiological disturbance. No clear epileptiform discharges or ictal activity was seen. Glucose mass conc 84 65 - 99 mg/dL 03-16-2019 [facility] (54274) Interpretation and Normal 03-16-2019 [facility] review of (79547) laboratory results Interpretation and Abnormal 03-16-2019 [facility] review of (27825) laboratory results Valproate mass conc <3 OTH - ug/mL Low 03-16-2019 [facility] OTH (72681) Cobalamin (Vitamin 354 193 - pg/mL 03-16-2019 [facility] B12) mass conc 986 (4321 5) Folate mass conc 6.9 3.1 - ng/mL 03-16-2019 [facility] 17.5 (58679) Comment: Deficient <2.2 Borderline 2.2 - 3.0 Excessive >17.5 Interpretation and Normal 03-16-2019 [facility] review of laboratory (41353) results Interpretation and Normal 03-16-2019 [facility] review of laboratory (66364) results Thyrotropin Qn 2.12 OTH - OTH m[IU]/L 03-16-2019 [facility] (13227) This order has 03-16-2019 [facility] (97433) auto-finalized and does not contain a result. This order has 03-16-2019 [facility] (09327) auto-finalized and does not contain a result. ua complete on 2018 Color (U) Yellow Normal 03-11-2019 [facility] (76772) Comment: Performed By: #### [id number] #### MARCUS RemHemo [address] [place] [address] Glucose (U) [Mass/Vol] Negative Negative mg/dL Normal 019 [facility] (74165) Comment: Performed By: #### [id number] #### MARCUS RemHemo [address] [place] [address] Ketones Ql (U) Negative Negative Normal 03-11-[address] [facility] (61383) Comment: Performed By: #### [id number] #### MARCUS RemHemo [address] [place] [address] RBC (U) [#/Vol] 0-3 0-3 Normal 03-11-2019 [facility] (25217) Comment: Performed By: #### [id number] #### MARCUS RemHemo [address] [place] [address] UA Blood Negative Negative Normal 03-11-2019 [facility] (33799) Comment: Performed By: #### [id number] #### MARCUS RemHemo [address] [place] [address] UA Bacteria Trace None Abnormal 03-11-2019 [facility] (83536) Comment: Performed By: #### [id number] #### MARCUS RemHemo [address] [place] [address] UA Clarity Clear Clear Normal 03-11-[address] [facility] (66280) Comment: Performed By: #### [id number] #### MARCUS RemHemo [address] [place] [address] UA Leuk Est Negative Negative Normal 03-11-2019 [facility] (40206) Comment: Performed By: #### [id number] #### MARCUS RemHemo [address] [place] [address] UA Mucous Trace Trace Abnormal 03-11-2019 [facility] (73782) Comment: Performed By: #### [id number] #### MARCUS RemHemo [address] [place] [address] UA Nitrite Negative Negative Normal 03-11-[address] [facility] (20395) Comment: Performed By: #### [id number] #### MARCUS RemHemo [address] [place] [address] UA pH 5.0 4.6-8.0 Normal 03-11-2019 [facility] (81442) Comment: Performed By: #### [id number] #### MARCUSShawn WilcoxHemo [address] [place] [address] UA Protein Negative Negative Normal 03-11-[address] [facility] (92784) Comment: Performed By: #### [id number] #### MARCUS WilcoxHemo [address] [place] [address] UA Spec Grav 1.012 1.003-1.030 Normal 03-11-[address] [facility] (16976) Comment: Performed By: #### [id number] #### MARCUS WilcoxHemo [facility] [place] [address] UA Squam Epithelial 10-20 0-5 Abnormal 03-11-2019 [facility] (31611) Comment: Performed By: #### [id number] #### MARCUSShawn WilcoxHemo [facility] [place] [address] UA Urobilinogen Negative Normal 03-11-2019 [facility] (96195) Comment: Result Comment: Due to a man ufacturing issue, low positive urobilinogen results may be fasely positi ve. Correlate with urine bilirubin and additional clinical/laborato ry findings to assess the risk of hemolytic anemia or liver disease. If clinically indicated, repeat testing with an alternate method is availabl e by contacting the laboratory within 24 hours. Performed By: #### [id number] #### MARCUS WilcoxHemo [address] [place] [address] UA WBC 0-5 0-5 Normal 03-11-2019 [facility] (10951) Comment: Performed By: #### [id number] #### MARCUS WilcoxHemo [facility] [place] [address] Urobilinogen Qn (U) Negative Negative Normal 03-11-2019 [facility] (00 000) Comment: Performed By: #### [id number] #### MARCUSShawn Kenyono [facility] [place] [address] troponin-i on 03-11 Troponin I.cardiac 0.01 0.00-0.03 ng/mL Normal 03-11-2019 [facility] [Mass/Vol] [facility] (73557) Comment: Performed By: #### [id number] #### MARCUS WilcoxHemo [address] [place] [address] egfr on 2019-03-11 GFR/1.73 sq M predicted 58 mL/min/1.73 m2 Normal 0 03-11-2019 [facility] among non-blacks [facility] (75188) (S/P/Bld) [Vol rate/Area] Comment: Order Comment: Order Added b y Discern Expert. Performed By: #### [id number] #### MARCUS WilcoxHemo [facility] [place] [address] GFR/1.73 sq M predicted 48 mL/min/1.73 m2 Normal 0 03-11-2019 [facility] among non-blacks [facility] (82222) (S/P/Bld) [Vol rate/Area] Comment: Order Comment: Order Added b y Discern Expert. Performed By: #### [id number] #### MARCUS WilcoxHemo [facility] [place] [address] cbc w/ auto diff on 2019-03-11 Erythrocyte distribution 13.9 11.5-14.5 % Normal 03-11 [facility] width (RBC) [Ratio] Health System (66216) Comment: Performed By: #### [id number] #### MARCUS WilcoxHemo [facility] [place] [address] Hematocrit (Bld) [Volume 37.4 36.0-48.0 % Normal 03-11 [facility] fraction] Health Sys tem (22502) Comment: Performed By: #### [id number] #### MARCUSShawn WilcoxHemo [facility] [place] [address] Hemoglobin (Bld) 12.4 12.0-16.0 G/DL Normal 03-11-2019 [facility] [Mass/Vol] [facility] (67935) Comment: Performed By: #### [id number] #### MARCUSShawn WilcoxHemo [facility] [place] [address] MCH (RBC) [Entitic mass] 30.2 27.0-31.0 pg Normal 03-11 [facility] (00 000) Comment: Performed By: #### [id number] #### MARCUS JeriHemo [facility] [place] [address] MCHC (RBC) [Mass/Vol] 33.1 33.0-37.0 G/DL Normal 03-11-20 [facility] () Comment: Performed By: #### [id number] #### MARCUS Kenyono [address] [place] [address] MCV (RBC) [Entitic vol] 91.2 78.0-100.0 fL Normal 03-11 [facility] (39217) Comment: Performed By: #### [id number] #### MARCUS WilcoxHemo [facility] [place] [address] Platelet mean volume 8.1 7.4-11.0 fL Normal [facility] (Bld) [Entitic vol] System (95590) Comment: Performed By: #### [id number] #### MARCUS WilcoxHemo [address] [place] [address] Platelets (Bld) [#/Vol] 120 130-400 E3/mcL Low 2018 [facility] (00 000) Comment: Performed By: #### [id number] #### MARCUS WilcoxHemo [address] [place] [address] 65[address] RBC (Bld) [#/Vol] 4.11 3.90-5.40 E6/mcL Normal 03-11-2019 [facility] (00 000) Comment: Performed By: #### [id number] #### MARCUS WilcoxHemo [address] [place] [address] 48876 WBC (Bld) [#/Vol] 3.6 3.6-11.0 E3/mcL Normal 03-11-2019 [facility] ( 000) Comment: Performed By: #### [id number] #### MARCUS JeriHemo [address] [place] [address] bmp on 2019-03-11 Anion gap [Moles/Vol] 11 10-20 mEq/L Normal 03-11-20 [facility] ( 000) Comment: Performed By: #### [id number] #### MARCUSShawn WilcoxHemo [facility] [place] [address] Calcium [Mass/Vol] 8.4 8.6-10.3 mg/dL Low 03-11-2019 [facility] (25267) Comment: Performed By: #### [id number] #### MARCUS WilcoxHemo [address] [place] [address] Chloride [Moles/Vol] 110 98-107 mEq/L High 9 [facility] () Comment: Performed By: #### [id number] #### MARCUS JeriHemo [facility] [place] [address] CO2 [Moles/Vol] 19.0 21.0-32.0 mEq/L Low 03-11-2019 [facility] (21135) Comment: Performed By: #### [id number] #### MARCUS JeriHemo [facility] [place] [address] Creatinine [Mass/Vol] 1.2 0.5-1.1 mg/dL High 03-11-20 [facility] () Comment: Performed By: #### [id number] #### MARCUS JeriHemo [facility] [place] [address] Glucose [Mass/Vol] 88 70-99 mg/dL Normal 03-11-2019 [facility] (22388) Comment: Performed By: #### [id number] #### MARCUS JeriHemo [facility] [place] [address] Potassium [Moles/Vol] 3.8 3.5-5.3 mEq/L Normal 03-11-20 19 [facility] () Comment: Performed By: #### [id number] #### MARCUS JeriHemo [facility] [place] [address] Sodium [Moles/Vol] 136 136-145 mEq/L Normal 03-11-2019 [facility] () Comment: Performed By: #### [id number] #### MARCUS JeriHemo [facility] [place] [address] Urea nitrogen [Mass/Vol] 12 6-23 mg/dL Normal 03-11 [facility] (00 000) Comment: Performed By: #### [id number] #### MARCUS RemHemo [facility] [place] [address] Urea nitrogen/Creatinine 10.0 5.4-30.0 ratio Normal 03-11 [facility] [Mass ratio] [facility] (05635) Comment: Performed By: #### [id number] #### MARCUS Kenyon[address] [address] auto diff on 03-11 Basophils (Bld) [#/Vol] 0.0 0.0-0.2 E3/mcL Normal 2018 [facility] tem (13645) Comment: Order Comment: Order Added b y Discern Expert. Performed By: #### [id number] #### MARCUS Kenyon[address] [address] Basophils/100 WBC (Bld) 0.3 0.0-2.0 % Normal 2018 [facility] (00 000) Comment: Order Comment: Order Added b y Discern Expert. Performed By: #### [id number] #### MARCUS Wilcox[address] [address] Eos Absolute 0.1 0.0-0.7 E3/mcL Normal 03-11-2019 [facility] (83142) Comment: Order Comment: Order Added b y Discern Expert. Performed By: #### [id number] #### MARCUS Kenyon[address] [address] Eosinophils/100 WBC (Bld) 3.7 0.0-11.0 % Normal 02-16 [facility] (00 000) Comment: Order Comment: Order Added b y Discern Expert. Performed By: #### [id number] #### MARCUS Kenyoncorky [address] [place] [address] Lymphocytes (Bld) [#/Vol] 1.0 1.2-3.4 E3/mcL Low 02-16 [facility] (00 000) Comment: Order Comment: Order Added b y Discern Expert. Performed By: #### [id number] #### MARCUSShawn Wilcox[address] [address] Lymphocytes/100 WBC (Bld) 28.2 20.0-55.0 % Normal 02-16 [facility] (71019) Comment: Order Comment: Order Added erma y Discern Expert. Performed By: #### [id number] #### MARCUS WilcoxHemo [address] [place] [address] Laporte Absolute 0.3 0.0-0.7 E3/mcL Normal 03-11-2019 [facility] (46947) Comment: Order Comment: Order Added b y Discern Expert. Performed By: #### [id number] #### MARCUS WilcoxHemo [address] [place], [place] [address] Monocytes/100 WBC (Bld) 8.9 0.0-10.0 % Normal 2018 [facility] (00 000) Comment: Order Comment: Order Added b y Discern Expert. Performed By: #### [id number] #### MARCUS WilcoxHemo [address] [place] [id number] Neutro Absolute 2.1 1.4-6.5 E3/mcL Normal 03-11-2019 [facility] (90501) Comment: Order Comment: Order Added b y Discern Expert. Performed By: #### [id number] #### MARCUS WilcoxHemo [address] [place] [id number] Neutro Auto 58.9 37.0-75.0 % Normal 03-11-2019 [facility] (29611) Comment: Order Comment: Order Added b y Discern Expert. Performed By: #### [id number] #### MARCUSShawn WilcoxHemo [address] [place] [address] No panel information on 2019-03-08 Ammonia mass conc 30 OTH - OTH ug/dL 03-08-2019 [facility] (08462) Interpretation and Normal 03-08-2019 [facility] review of laboratory (72689) results Interpretation and Normal 03-08-2019 [facility] review of laboratory (74681) results Thyrotropin Qn 2.54 OTH - OTH m[IU]/L 03-08-2019 [facility] (00210) Albumin mass conc 3.6 3.2 - 5.2 g/dL 03-08-2019 [facility] (65732) ALP enzyme act/vol 99 40 - 150 U/L 03-08-2019 [facility] (08028) ALT enzyme act/vol 31 14 - 65 U/L 03-08-2019 [facility] (76406) Anion gap molar conc 12 10 - 20 mmol/L 9 [facility] (61974) AST enzyme act/vol 29 0 - 45 U/L 03-08-2019 [facility] (11117) Bilirubin mass conc 0.6 0 - 1.3 mg/dL 03-08-2019 [facility] (09429) Calcium mass conc 8.4 8.4 - mg/dL 03-08-2019 [facility] 10.2 (23483) Chloride molar conc 114 98 - 108 mmol/L High 03-08-2019 [facility] (25194) Creatinine mass conc 1.31 0.4 - 1.1 mg/dL High 9 [facility] (70389) GFR/1.73 sq M The eGFR should 03-08-2019 [facility] predicted among be used for (4 4065) non-blacks MDRD vol monitoring renal rate/area (S/P/Bld) function only and not for medication dosing. GFR/1.73 sq 49 >=60 Low 03-08-2019 [facility] lth M.predicted CKD-EPI mL/min/1. (76942) vol rate/area 73 m2 (S/P/Bld) Glucose mass conc 94 65 - 99 mg/dL 03-08-2019 [facility] (43785) HCO3 molar conc 20 21 - 32 mmol/L Low 03-08-2019 [facility] (50907) Interpretation and Abnormal 03-08-2019 [facility] review of laboratory (27037) results Potassium molar conc 4.1 3.5 - 5.1 mmol/L 9 [facility] (42774) Protein mass conc 7.2 6 - 8 g/dL [facility]-08[facility]88488[facility] Sodium molar conc 142 135 - 145 mmol/L 03-08-2019 [facility] (70888) Urea nitrogen mass 16 8 - 25 mg/dL 03-08-2019 [facility] conc (68667) Urea 12.2 OTH - OTH mg/mg 03-08-2019 [facility] h nitrogen/Creatinine (13693) mass ratio Valproate mass conc 4 OTH - OTH ug/mL Low 03-08-2019 [facility] (81769) egfr on 2019-02-24 GFR/1.73 sq M predicted 43 mL/min/1.73 m2 Normal 0 02-24-2019 [facility] among [facility]-blacks [facility] (44691) (S/P/Bld) [Vol rate/Area] Comment: Order Comment: Order Added b y Katya Expert. Performed By: #### [id number] #### MARCUS JeriHemo [address] [place] [address] GFR/1.73 sq M predicted 52 mL/min/1.73 m2 Normal 0 02-24-2019 [facility] among non-blacks [facility] (53600) (S/P/Bld) [Vol rate/Area] Comment: Order Comment: Order Added b y Katya Expert. Performed By: #### [id number] #### MARCUS RemHemo [address] [place] [address] bmp on 2019-02-24 Anion gap [Moles/Vol] 12 10-20 mEq/L Normal 02-25-20 [facility] () Comment: Performed By: #### [id number] #### MARCUS RemHemo [address] [place] [address] Calcium [Mass/Vol] 8.9 8.6-10.3 mg/dL Normal 02-24-2019 [facility] () Comment: Performed By: #### [id number] #### MARCUS RemHemo [address] [place] [address] Chloride [Moles/Vol] 110 98-107 mEq/L High 9 [facility] () Comment: Performed By: #### [id number] #### MARCUS RemHemo [address] [place] [address] CO2 [Moles/Vol] 21.0 21.0-32.0 mEq/L Normal 02-24-2019 [facility] () Comment: Performed By: #### [id number] #### MARCUS RemHemo [address] [place] [address] Creatinine [Mass/Vol] 1.3 0.5-1.1 mg/dL High 02-25-20 [facility] () Comment: Performed By: #### [id number] #### MARCUS RemHemo [address] [place] [address] Glucose [Mass/Vol] 89 70-99 mg/dL Normal 02-24-2019 [facility] (42325) Comment: Performed By: #### [id number] #### MARCUS RemHemo [address] [place] [address] Potassium [Moles/Vol] 4.5 3.5-5.3 mEq/L Normal 02-25-20 19 [facility] (00 000) Comment: Performed By: #### [id number] #### MARCUS RemHemo [address] [place] [address] Sodium [Moles/Vol] 138 136-145 mEq/L Normal 02-24-2019 [facility] (00 000) Comment: Performed By: #### [id number] #### MARCUS RemHemo [address] [place] [address] Urea nitrogen [Mass/Vol] 15 6-23 mg/dL Normal 02-24 [facility] (00 000) Comment: Performed By: #### [id number] #### MARCUS RemHemo [address] [place] [address] Urea nitrogen/Creatinine 11.5 5.4-30.0 ratio Normal 02-24 [facility] [Mass ratio] [facility] (45017) Comment: Performed By: #### [id number] #### MARCUS JeriHemo [address] [place] [address] zzplt morph on 2018 Platelet morphology finding NORMAL Normal [facility] (00 000) Comment: Performed By: #### [id number] #### MARCUS RemHemo [address] [place] [address] Platelets (d) [#/Vol] DECREASED Normal 2018 [facility] ( 000) Comment: Performed By: #### [id number] #### MARCUS RemHemo [address] [place] [address] manual diff on 2018 Band form neutrophils/100 WBC 9 0-1 High 02-23-2019 [facility] (Bld) System (00 000) Comment: Order Comment: Order Added erma Aldana Expert. Performed By: #### [id number] #### MARCUSShawn Kenyono [address] [place] [address] Basophil Man 0 0-1 % Normal 02-23-2019 [facility] (58724) Comment: Order Comment: Order Added erma Aldana Expert. Performed By: #### [id number] #### MARCUS JeriKarlo [address] [place] [address] Eosinophils/100 WBC (Bld) 2 0-5 % Normal [facility] (58544) Comment: Order Comment: Order Added erma Aldana Expert. Performed By: #### [id number] #### MARCUS JeriKarlo [address] [place] [address] Lymphocytes/100 WBC (Bld) 33 14-48 % Normal [facility] (00 000) Comment: Order Comment: Order Added erma Aldana Expert. Performed By: #### [id number] #### MARCUSShawn Kenyono [address] [place] [address] Lee Man 3 0-0 % High 02-23-2019 [facility] (80412) Comment: Order Comment: Order Added erma Aldana Expert. Performed By: #### [id number] #### MARCUS JeriKarlo [address] [place] [address] Monocyte Man 11 1-11 % Normal 02-23-2019 [facility] (77713) Comment: Order Comment: Order Added erma Aldana Expert. Performed By: #### [id number] #### MARCUSShawn Kenyono [address] [place] [address] Myelo Man 2 0-0 % High 02-23-2019 [facility] (76400) Comment: Order Comment: Order Added erma Aldana Expert. Performed By: #### [id number] #### MARCUSShawn Kenyono [address] [place] [address] Ovalocytes 1+ Normal 02-23-[address] [facility] (73696) Comment: Order Comment: Order Added erma Aldana Expert. Performed By: #### [id number] #### MARCUSShawn Luong [address] [place] [address] Polychromasia 1+ Normal 02-23-2019 [facility] (03748) Comment: Order Comment: Order Added erma Aldana Expert. Performed By: #### [id number] #### MARCUS Kenyoncorky [facility] [place] [address] RBC morphology finding SEE MORPHOLOGY Normal [facility] (Bld) Health Sys [facility] (88660) Comment: Order Comment: Order Added b y Discern Expert. Performed By: #### [id number] #### MARCUS Kenyoncorky [facility] [place] [id number] Segs Man 40 37-75 % Normal 02-23-2019 [facility] (17798) Comment: Order Comment: Order Added erma lizama Discern Expert. Performed By: #### [id number] #### MARCUS Kostascorky [address] [place], [place] [id number] lamotrigine lvl on 2019-02-23 Lamotrigine Lvl None Detected 2.0-20.0 Normal 02-23-2019 [facility] (00 000) Comment: Result Comment: This test wa s developed and its performance characteristics determined by [employer]. It guzman s not been cleared or approved by the Food and Nabeel g Administration. Detection Limit = 1.0 Performed At: [address] [id number] Aramis Sharpe MD Performed By: #### [id number] #### MARCUS Kostascorky [address] [place] [address] egfr on 2019-02-23 GFR/1.73 sq M predicted 60 mL/min/1.73 m2 Normal 0 02-23-2019 [facility] among non-blacks [facility] (31378) (S/P/Bld) [Vol rate/Area] Comment: Order Comment: Order Added b y Discern Expert. Performed By: #### [id number] #### MARCUS Kenyono [address] [place] [address] GFR/1.73 sq M predicted 50 mL/min/1.73 m2 Normal 0 02-23-2019 [facility] among non-blacks [facility] (74576) (S/P/Bld) [Vol rate/Area] Comment: Order Comment: Order Added b y Discern Expert. Performed By: #### [id number] #### MARCUS Luong [facility] [place] [address] cmp on 2019-02-23 Albumin [Mass/Vol] 3.3 3.4-5.0 gm/dL Low 02-23-2019 [facility] (20222) Comment: Performed By: #### [id number] #### MARCUS Luong [facility] [place] [address] Albumin/Globulin [Mass 1.5 1.1-1.9 ratio Normal 019 [facility] tem (38979) Comment: Performed By: #### [id number] #### [facility] [place] [address] Alk Phos 57 33-110 Int._Unit/L Normal 02-23-2019 [facility] (14345) Comment: Performed By: #### [id number] #### MARCUS [address] [address] ALT [Catalytic 12 7-45 Int._Unit/L Normal 02-23-[address] [facility] (45055) Comment: Performed By: #### [id number] #### MARCUS Kenyono [address] [place] [address] Anion gap [Moles/Vol] 10 10-20 mEq/L Normal 02-24-20 19 [facility] (00 000) Comment: Performed By: #### [id number] #### MARCUS Kenyono [address] [place] [address] AST [Catalytic 20 9-39 Int._Unit/L Normal 02-23-[address] [facility] (87413) Comment: Performed By: #### [id number] #### MARCUSShawn Kenyono [facility] [place] [address] Bili Total 0.33 0.00-1.20 mg/dL Normal 02-23-[address] [facility] (04661) Comment: Performed By: #### [id number] #### MARCUS RemHemo [address] [place] [address], [place] [address] Calcium [Mass/Vol] 8.3 8.6-10.3 mg/dL Low 02-23-2019 [facility] (25176) Comment: Performed By: #### [id number] #### MARCUS RemHemo [address] [place] [address] Chloride [Moles/Vol] 114 98-107 mEq/L High [facility] () Comment: Performed By: #### [id number] #### MARCUS RemHemo [address] [place] [address] CO2 [Moles/Vol] 22.0 21.0-32.0 mEq/L Normal 02-23-2019 [facility] () Comment: Performed By: #### [id number] #### MARCUS WilcoxHemo [address] [place] [address] Creatinine [Mass/Vol] 1.2 0.5-1.1 mg/dL High 02-24-20 [facility] () Comment: Performed By: #### [id number] #### MARCUS RemHemo [address] [place] [address] Globulin (S) [Mass/Vol] 2.0 2.0-4.0 G/DL Normal 2018 [facility] ( 000) Comment: Performed By: #### [id number] #### MARCUS RemHemo [address] [place] [address] Glucose [Mass/Vol] 86 70-99 mg/dL Normal 02-23-2019 [facility] (59590) Comment: Performed By: #### [id number] #### MARCUS RemHemo [address] [place] [address] Potassium [Moles/Vol] 4.4 3.5-5.3 mEq/L Normal 02-24-20 [facility] ( 000) Comment: Performed By: #### [id number] #### MARCUS RemHemo [address] [place] [address] Protein [Mass/Vol] 5.5 6.4-8.2 gm/dL Low 02-23-2019 [facility] (34756) Comment: Performed By: #### [id number] #### MARCUS JeriHemo [address] [place] [address] Sodium [Moles/Vol] 141 136-145 mEq/L Normal 02-23-2019 [facility] (00 000) Comment: Performed By: #### [id number] #### MARCUS JeriHemo [facility] [place] [address] Urea nitrogen [Mass/Vol] 11 6-23 mg/dL Normal 02-23 [facility] (00 000) Comment: Performed By: #### [id number] #### MARCUS JeriHemo [facility]5 [place] [address] Urea nitrogen/Creatinine 9.2 5.4-30.0 ratio Normal 02-23 [facility] [Mass ratio] [facility] (41405) Comment: Performed By: #### [id number] #### MARCUS JeriHemo [address] [place] [address] cbc w/ auto diff on 2019-02-23 Erythrocyte distribution 14.7 11.5-14.5 % High 02-23 [facility] width (RBC) [Ratio] Health System (19762) Comment: Performed By: #### [id number] #### MARCUS JeriHemo [facility] [place] [address] Hematocrit (Bld) [Volume 35.2 36.0-48.0 % Low 02-23 [facility]] System (00 000) Comment: Performed By: #### [id number] #### MARCUS JeriHemo [address] [place] [address] Hemoglobin (Bld) 11.7 12.0-16.0 G/DL Low 02-23-2019 [facility] [Mass/Vol] Health Sy stem (58915) Comment: Performed By: #### [id number] #### MARCUS JeriHemo [facility]5 [place] [address] MCH (RBC) [Entitic mass] 31.2 27.0-31.0 pg High 02-23 [facility] (00 000) Comment: Performed By: #### [id number] #### MARCUS [facility] [place] [address] MCHC (RBC) [Mass/Vol] 33.2 33.0-37.0 G/DL Normal 02-24-20 19 [facility] (00 000) Comment: Performed By: #### [id number] #### MARCUS Kenyono [address] [place] [address] MCV (RBC) [Entitic vol] 93.8 78.0-100.0 fL Normal 02-23 [facility] (13761) Comment: Performed By: #### [id number] #### MARCUS WilcoxHemo [facility] [place] [address] Platelet mean volume 7.6 7.4-11.0 fL Normal [facility] (Bld) [Entitic vol] System (56396) Comment: Performed By: #### [id number] #### MARCUS WilcoxHemo [address] [place] [address] Platelets (Bld) [#/Vol] 56 130-400 E3/mcL Low 2018 [facility] (00 000) Comment: Performed By: #### [id number] #### MARCUSShawn WilcoxHemo [facility]5 [place] [address] RBC (Bld) [#/Vol] 3.75 3.90-5.40 E6/mcL Low 02-23-2019 [facility] (00 000) Comment: Performed By: #### [id number] #### MARCUSShawn WilcoxHemo [facility]5 [place] [address] WBC (Bld) [#/Vol] 2.4 3.6-11.0 E3/mcL Low 02-23-2019 [facility] (09285) Comment: Performed By: #### [id number] #### MARCUSShawn WilcoxHemo [address] [place] [address] c urine on C Urine Final Report: Rare Normal Normal [facility] skin joe isolated System (68407) Comment: Performed By: #### [id number] #### MARCUS [facility] [place] [address] ammonia on Ammonia (P) [Mass/Vol] 53 16-53 mcmol/L Normal 019 [facility] (00 000) Comment: Performed By: #### [id number] #### MARCUS Kenyoncorky [address] [place] [address] .manual abs on 2018 Basophil Abs Man 0.0 0.0-0.2 10x3/ Normal 02-23-2019 [facility] (20685) Comment: Order Comment: Order Added b y Discern Expert. Performed By: #### [id number] #### MARCUSShawn Luong [address] [place] [address] Eos Abs Man 0.0 0.0-0.5 10x3/ Normal 02-23-2019 [facility] (52367) Comment: Order Comment: Order Added b y Discern Expert. Performed By: #### [id number] #### MARCUS Kostascorky [address] [place] [address] Lymph Abs Man 0.8 1.2-3.4 10x3/ Low 02-23-2019 [facility] (15708) Comment: Order Comment: Order Added b y Discern Expert. Performed By: #### [id number] #### MARCUS JeriRahul [address] [place] [address] Laporte Abs Man 0.3 0.0-0.7 10x3/ Normal 02-23-2019 [facility] (85511) Comment: Order Comment: Order Added b y Discern Expert. Performed By: #### [id number] #### MARCUS Kostaso [address] [place] [address] Segs Abs Man 1.0 1.4-6.5 10x3/ Low 02-23-2019 [facility] (02613) Comment: Order Comment: Order Added b y Discern Expert. Performed By: #### [id number] #### MARCUS Kostaso [address] [place] [address] zzplt morph on 2018 Platelet morphology finding ENLARGED Normal [facility] (d) System (00 000) Comment: Performed By: #### [id number] #### MARCUS JeriHemo [address] [place] [address] Platelets (Bld) [#/Vol] DECREASED Normal 2018 [facility] (00 000) Comment: Performed By: #### [id number] #### MARCUS Kenyono [address] [place] [address] valproic acid on 05-03-08 Valpro Acid Lvl 75 50-100 microgram/mL Normal 02-22-2019 [facility] (00 000) Comment: Performed By: #### [id number] #### MARCUS Kenyono [facility]5 [place] [address] phosphorus on 02-22 Phosphate [Mass/Vol] 2.7 2.5-4.9 mg/dL Normal [facility] (00 000) Comment: Performed By: #### [id number] #### MARCUS Kenyono [facility]5 [place] [address] manual diff on 2018 Anisocytosis Ql (Bld) 1+ Normal 02-23-20 [facility] (60645) Comment: Order Comment: Order Added b y Discern Expert. Performed By: #### [id number] #### MARCUS WilcoxHemo [facility]5 [place] [address] Basophil Man 0 0-1 % Normal 02-22-2019 [facility] (62220) Comment: Order Comment: Order Added b y Discern Expert. Performed By: #### [id number] #### MARCUS Kenyono [facility]5 [place] [address] Eosinophils/100 WBC (Bld) 0 0-5 % Normal [facility] (96075) Comment: Order Comment: Order Added b y Discern Expert. Performed By: #### [id number] #### MARCUS WilcoxHemo [address] [place] [address] Lymphocytes/100 WBC (Bld) 51 14-48 % High - [facility] (68633) Comment: Order Comment: Order Added b y Discern Expert. Performed By: #### [id number] #### MARCUSShawn WilcoxHemo [address] [place] [address] Monocyte Man 9 1-11 % Normal 02-22-2019 [facility] (80590) Comment: Order Comment: Order Added erma Aldana Expert. Performed By: #### [id number] #### MARCUSShawn Kenyono [address] [place] [id number] RBC morphology finding SEE MORPHOLOGY Normal [facility] (d) Health Sys tem (50405) Comment: Order Comment: Order Added erma y Katya Expert. Performed By: #### [id number] #### MARCUSShawn WilcoxHemo [facility] [place] [phone] Segs Man 40 37-75 % Normal 02-22-2019 [facility] (69509) Comment: Order Comment: Order Added erma y Katya Expert. Performed By: #### [id number] #### MARCSU JeriAzuquao [facility] [place] [id number] magnesium on 08 Magnesium [Mass/Vol] 1.8 1.6-2.4 mg/dL Normal 9 [facility] (00 000) Comment: Performed By: #### [id number] #### MARCUSShawn WilcoxHemo [facility] [place] [address] hgba1c on 8 HbA1c ([facility]) [Mass fraction] 5.1 4.0-6.3 % Normal [facility] (00 000) Comment: Performed By: #### [id number] #### MARCUS JeriHemo [facility] [place] [id number] gases - blood on 05-03-08 Allens Test. Normal 02-22-2019 [facility] (46616) Comment: Performed By: #### [id number] #### MARCUS JeriHemo [address] [place] [address] Base Excess. -9 -2-3 mmol/L Low 02-22-2019 [facility] (86981) Comment: Performed By: #### [id number] #### MARCUS RemHemo [address] [place] [address] CO2 Tot. 17 22-28 mmol/L Low 02-22-2019 [facility] (95001) Comment: Performed By: #### [id number] #### MARCUS Kenyono [address] [place] [address] CPAP/PEEP(cmH2O). NOT CALCULATED Normal 019 [facility] (00 000) Comment: Performed By: #### [id number] #### MARCUS Kenyono [facility] [place] [address] FiO2. 21 % Normal 02-22-2019 [facility] (84678) Comment: Performed By: #### [id number] #### MARCUS JeriHemo [address] [place] [address] HCO#. 16.3 22.0-26.0 mmol/L Low 02-22-2019 [facility] (00093) Comment: Performed By: #### [id number] #### MARCUS Kostaso [address] [place] [address] O2 Devices. Room Air Normal 02-22-2019 [facility] (52246) Comment: Performed By: #### [id number] #### MARCUS WilcoxHemo [address] [place] [address] OPID. [id number] Normal 02-22-2019 [facility] (49233) Comment: Performed By: #### [id number] #### MARCUS Kostaso [address] [place], [place] [address] Oxygen (Bld) [Partial 101 80-100 mmHg High 02-23-20 19 [facility]] System (00 000) Comment: Performed By: #### [id number] #### MARCSU WilcoxHemo [address] [place], [place] [address] Oxygen saturation in Blood 98 95-100 % Normal [facility] (00 000) Comment: Performed By: #### [id number] #### MARCUS JeriHemo [facility]5 [place] [address] P CO2. 28.4 35.0-45.0 mmHg Low 02-22-2019 [facility] (10708) Comment: Performed By: #### [id number] #### MARCUS JeriHemo [facility]5 [place] [address] Patient Temp. NOT CALCULATED Normal 02-22-2019 [facility] (95018) Comment: Performed By: #### [id number] #### MARCUS JeriHemo [address] [place] [address] pH (Bld) 7.367 7.350-7.450 Normal 02-22-2019 [facility] (53622) Comment: Performed By: #### [id number] #### MARCUS JeriHemo [facility] [place] [address] PSV/IP(cmH2O). NOT CALCULATED Normal 02-22-2019 [facility] (89931) Comment: Performed By: #### [id number] #### MARCUS JeriHemo [facility] [place] [address] Sample Site. R brach Normal 02-22-2019 [facility] (03063) Comment: Performed By: #### [id number] #### MARCUS JeriHemo [facility] [place] [address] Sample Type. Arterial Normal 02-22-2019 [facility] (01131) Comment: Performed By: #### [id number] #### [place] [address] Set RR(b/min). NOT CALCULATED Normal 02-22-2019 [facility] (83556) Comment: Performed By: #### [id number] #### M[facility]US [facility] Hospital[facility] [address] [place] [address] Tidal Volume(mL). NOT CALCULATED Normal 019 [facility] (00 000) Comment: Performed By: #### [id number] #### MARCUS JeriHemo [address] [place] [address] Vent Mode. NOT CALCULATED Normal 02-22-2019 [facility] (07062) Comment: Performed By: #### [id number] #### MARCUS JeriHemo [facility] [place] [id number] egfr on 2019-02-22 GFR/1.73 sq M predicted 56 mL/min/1.73 m2 Normal 0 02-22-2019 [facility] among non-blacks [facility] (20384) (S/P/Bld) [Vol rate/Area] Comment: Order Comment: Order added b y Discern Expert. Performed By: #### [id number] # ### MARCUS WilcoxHemo [address] [place] [address] GFR/1.73 sq M predicted 46 mL/min/1.73 m2 Normal 0 02-22-2019 [facility] among non-blacks [facility] (99052) (S/P/Bld) [Vol rate/Area] Comment: Order Comment: Order added b y Discern Expert. Performed By: #### [id number] # ### MARCUSShawn WilcoxHemo [facility] [place] [address] cbc w/ auto diff on 2019-02-22 Erythrocyte distribution 15.0 11.5-14.5 % High 02-22 [facility] width (RBC) [Ratio] Health System (14750) Comment: Performed By: #### [id number] #### MARCUS [facility] [place] [address] Hematocrit (Bld) [Volume 35.9 36.0-48.0 % Low 02-22 [facility]] System (00 000) Comment: Performed By: #### [id number] #### MARCUS [facility] [address] [place] [address] Hemoglobin (Bld) 11.8 12.0-16.0 G/DL Low 02-22-2019 [facility] [Mass/Vol] Health Sy stem (02064) Comment: Performed By: #### [id number] #### MARCUSShawn WilcoxHemo [facility] [place] [address] MCH (RBC) [Entitic mass] 31.1 27.0-31.0 pg High 02-22 [facility] (00 000) Comment: Performed By: #### [id number] #### MARCUSShawn WilcoxHemo [facility] [place] [address] MCHC (RBC) [Mass/Vol] 32.9 33.0-37.0 G/DL Low 02-23-20 19 [facility] (00 000) Comment: Performed By: #### [id number] #### MARCUS [facility] [place] [address] MCV (RBC) [Entitic vol] 94.6 78.0-100.0 fL Normal 02-22 [facility] Sys tem (53569) Comment: Performed By: #### [id number] #### MARCUS WilcoxHemo [address] [place] [address] Platelet mean volume 7.9 7.4-11.0 fL Normal 9 [facility] (d) [Entitic vol] System (20398) Comment: Performed By: #### [id number] #### MARCUS JeriHemo [facility] [place] [address] Platelets (Bld) [#/Vol] 62 130-400 E3/mcL Low 2018 [facility] ( 000) Comment: Performed By: #### [id number] #### MARCUS JeriHemo [facility]5 [place] [address] RBC (Bld) [#/Vol] 3.79 3.90-5.40 E6/mcL Low 02-22-2019 [facility] () Comment: Performed By: #### [id number] #### MARCUSShawn WilcoxHemo [address] [place] [address] WBC (Bld) [#/Vol] 2.8 3.6-11.0 E3/mcL Low 02-22-2019 [facility] (77840) Comment: Performed By: #### [id number] #### MARCUS JeriHemo [facility] [place] [address] bmp on 2019-02-22 Anion gap [Moles/Vol] 10 10-20 mEq/L Normal 02-23-20 19 [facility] () Comment: Performed By: #### [id number] # ### MARCUS JeriHemo [facility] [place] [address] Calcium [Mass/Vol] 7.7 8.6-10.3 mg/dL Low 02-22-2019 [facility] (33675) Comment: Performed By: #### [id number] # ### MARCUSShawn WilcoxHemo [facility] [place] [address] Chloride [Moles/Vol] 115 98-107 mEq/L High 9 [facility] ( 000) Comment: Performed By: #### [id number] # ### MARCUS JeriHemo [address] [place] [address] CO2 [Moles/Vol] 20.0 21.0-32.0 mEq/L Low 02-22-2019 [facility] (97078) Comment: Performed By: #### [id number] # ### MARCUS WilcoxHemo [address] [place] [address] Creatinine [Mass/Vol] 1.2 0.5-1.1 mg/dL High 02-23-20 [facility] (00 000) Comment: Performed By: #### [id number] # ### MARCUS WilcoxHemo [address] [place] [address] Glucose [Mass/Vol] 89 70-99 mg/dL Normal 02-22-2019 [facility] (37490) Comment: Performed By: #### [id number] # ### MARCUS WilcoxHemo [address] [place] [address] Potassium [Moles/Vol] 4.3 3.5-5.3 mEq/L Normal 02-23-20 19 [facility] (00 000) Comment: Performed By: #### [id number] # ### MARCUS WilcoxHemo [address] [place] [address] Sodium [Moles/Vol] 141 136-145 mEq/L Normal 02-22-2019 [facility] (00 000) Comment: Performed By: #### [id number] # ### MARCUS WilcoxHemo [address] [place] [address] Urea nitrogen [Mass/Vol] 14 6-23 mg/dL Normal 02-22 [facility] (00 000) Comment: Performed By: #### [id number] # ### MARCUS RemHemo [address] [place] [address] Urea nitrogen/Creatinine 11.7 5.4-30.0 ratio Normal 02-22 [facility] (33383) Comment: Performed By: #### [id number] # ### MARCUS RemHemo [address] [place] [address] .manual abs on 2018 Basophil Abs Man 0.0 0.0-0.2 10x3/ Normal 02-22-2019 [facility] (86108) Comment: Order Comment: Order Added erma lizama Discern Expert. Performed By: #### [id number] #### MARCUS RemHemo [address] [place] [address] Eos Abs Man 0.0 0.0-0.5 10x3/ Normal 02-22-2019 [facility] (61181) Comment: Order Comment: Order Added erma lizama Discern Expert. Performed By: #### [id number] #### MARCUS RemHemo [address] [place] [address] Lymph Abs Man 1.4 1.2-3.4 10x3/ Normal 02-22-2019 [facility] (88657) Comment: Order Comment: Order Added b y Discern Expert. Performed By: #### [id number] #### MARCUS JeriHemo [address] [place] [address] [place]orte Abs Man 0.3 0.0-0.7 10x3/ Normal 02-22-2019 [facility] (95563) Comment: Order Comment: Order Added erma lizama Discern Expert. Performed By: #### [id number] #### MARCUS RemHemo [address] [place] [address] Segs Abs Man 1.1 1.4-6.5 10x3/ Low 02-22-2019 [facility] (08780) Comment: Order Comment: Order Added erma lizama Discern Expert. Performed By: #### [id number] #### MARCUS RemHemo [address] [place] [address] zzplt morph on 2018 Platelet morphology finding ENLARGED Normal [facility] (00 000) Comment: Performed By: #### [id number] #### MARCUS Urinalysis Automated Suggs bsection [address] [place] [address] Platelets (d) [#/Vol] DECREASED Normal 2018 [facility] (00 000) Comment: Performed By: #### [id number] #### MARCUS Urinalysis Automated [employer] bsection [address] [place] [address] valproic acid on 05-03-07 Valpro Acid Lvl 102 50-100 microgram/mL Critically 02-21-2019 [facility] (00 000) Comment: Result Comment: Critical Res ult (s) Called to and read back by: XUAN GARCIA at: 02/21/2019 18:51 :29 by:ZOFIA Performed By: #### [id number] # ### MARCUS RemHemo [facility] [place] [address] Valpro Acid Lvl 101 50-100 microgram/mL Critically 02-21-2019 [facility] (00 000) Comment: Result Comment: Critical Res ult (s) Called to and read back by: XUAN GARCIA at: 02/21/2019 13:43 :39 by:RAY Performed By: #### [id number] # ### MARCUS Microbiology Subsection [address] [place], [place] [address] ua complete on 2018 Color (U) Straw Yellow Normal 02-21-2019 [facility] (58307) Comment: Order Comment: Straight Cath as needed Performed By: #### [id number] # ### MARCUS Microbiology Subsection [address] [place], [place] [address] Glucose (U) [Mass/Vol] Negative Negative mg/dL Normal 019 [facility] (34789) Comment: Order Comment: Straight Cath as needed Performed By: #### [id number] # ### MARCUS Microbiology Subsection [address] [place] [address] Ketones Ql (U) Negative Negative Normal 02-21-[address] [facility] (89482) Comment: Order Comment: Straight Cath as needed Performed By: #### [id number] # ### MARCUS Microbiology Subsection [address] [place] [address] 487[address] RBC (U) [#/Vol] 0-3 0-3 Normal 02-21-2019 [facility] (10495) Comment: Order Comment: Straight Cath as needed Performed By: #### [id number] # ### MARCUS Microbiology Subsection [address] [place] [address] UA Blood Negative Negative Normal 02-21-2019 [facility] (72313) Comment: Order Comment: Straight Cath as needed Performed By: #### [id number] # ### MARCUS Microbiology Subsection [address] [place] [address] UA Bacteria Trace None Abnormal 02-21-2019 [facility] (67053) Comment: Order Comment: Straight Cath as needed Performed By: #### [id number] # ### MARCUS Microbiology Subsection [address] [place] [address] UA Clarity SltCloudy Clear Abnormal 02-21-[address] [facility] (02065) Comment: Order Comment: Straight Cath as needed Performed By: #### [id number] # ### MARCUS Microbiology Subsection [address] [place] [address] UA Leuk Est 1+ Negative Abnormal 02-21-2019 [facility] (46580) Comment: Order Comment: Straight Cath as needed Performed By: #### [id number] # ### MARCUS Microbiology Subsection [address] [place] [address] UA Mucous Trace Trace Abnormal 02-21-2019 [facility] (50121) Comment: Order Comment: Straight Cath as needed Performed By: #### [id number] # ### MARCUS Microbiology Subsection [address] [place] [address] UA Nitrite Negative Negative Normal 02-21-[address] [facility] (43756) Comment: Order Comment: Straight Cath as needed Performed By: #### [id number] # ### MARCUS Microbiology Subsection [address] [place] [address] UA pH 5.0 4.6-8.0 Normal 02-21-2019 [facility] (35199) Comment: Order Comment: Straight Cath as needed Performed By: #### [id number] # ### MARCUS Microbiology Subsection [address] [place] [address] UA Protein Negative Negative Normal 02-21-[address] [facility] ([id number]) Comment: Order Comment: Straight Cath as needed Performed By: #### [id number] # ### MARCUS Microbiology Subsection [address] [place] [address] UA Spec Grav 1.005 1.003-1.030 Normal 02-21-[address] [facility] (58324) Comment: Order Comment: Straight Cath as needed Performed By: #### [id number] # ### MARCUS Microbiology Subsection [address] [place] [address] UA Squam Epithelial 5-10 0-5 Abnormal 02-21-2019 [facility] (67216) Comment: Order Comment: Straight Cath as needed Performed By: #### [id number] # ### MARCUS Microbiology Subsection [address] [place] [address] 77402 UA Urobilinogen Negative Normal 02-21-2019 [facility] (71560) Comment: Order Comment: Straight Cath as needed Result Comment: Due to a man ufacturing issue, low positive urobilinogen results may be fasely positi ve. Correlate with urine bilirubin and additional clinical/laborato ry findings to assess the risk of hemolytic anemia or liver disease. If clinically indicated, repeat testing with an alternate method is availabl e by contacting the laboratory within 24 hours. Performed By: #### [id number] # ### MARCUS Microbiology Subsection [address] [place] [address] 84255 UA WBC 0-5 0-5 Normal 02-21-2019 [facility] (22061) Comment: Order Comment: Straight Cath as needed Performed By: #### [id number] # ### MARCUS Microbiology Subsection [address] [place] [address] 62837 Urobilinogen Qn (U) Negative Negative Normal 02-21-2019 [facility] (00 000) Comment: Order Comment: Straight Cath as needed Performed By: #### [id number] # ### MARCUS Microbiology Subsection [address] [place] [address] 51906 u sodium on 2019-02 Sodium [Moles/Vol] 36 mmol/L Normal 02-21-2019 [facility] (47847) Comment: Performed By: #### [id number] # ### MARCUS Microbiology Subsection [address] [place] [address] 70081 u protein on 07 Protein [Mass/Vol] 4 1-14 mg/dL Normal 02-21-2019 [facility] (48414) Comment: Performed By: #### [id number] # ### MARCUS RemHemo [address] [place] [address] 81656 u creatinine on 201 06-22-07 U Creatinine 31 20-300 mg/dL Normal 02-21-2019 [facility] (52994) Comment: Performed By: #### [id number] # ### MARCUS RemHemo [address] [id number] u bhcg qlt on 02-21 HCG.beta subunit Qn Neg Neg m[IU]/mL Normal 02-21-2019 [facility] (00 000) Comment: Performed By: #### [id number] # ### MARCUS Microbiology Subsection [address] [place] [address] 46548 tsh on 2019-02-21 TSH Qn 4.82 0.30-5.60 mcIU/mL Normal 02-21-2019 [facility] (78871) Comment: Order Comment: With T4fr Ref kurt Performed By: #### [id number] # ### MARCUS Microbiology Subsection [address] [place] [address] salicylate on 02-21 Salicylate Lvl <1.5 4.0-20.0 Low 02-21-[address] [facility] (86775) Comment: Performed By: #### [id number] # ### MARCUS RemHemo [address] [place] [address] morph on 2019-02-21 Polychromasia 1+ Normal 02-21-2019 [facility] (75014) Comment: Order Comment: Straight Cath as needed Performed By: #### [id number] #### MARCUS Urinalysis Automated Suggs bsection [address] [place], [place] [id number] RBC morphology finding SEE MORPHOLOGY Normal [facility] (81442) Comment: Order Comment: Straight Cath as needed Performed By: #### [id number] #### MARCUS Urinalysis Automated Suggs bsection [address] [place] [address] Teardrop Cell 1+ Normal 02-21-2019 [facility] (19709) Comment: Order Comment: Straight Cath as needed Performed By: #### [id number] #### MARCUS Urinalysis Automated Suggs bsection [address] [place], [place] [id number] magnesium on 02-21 Magnesium [Mass/Vol] 1.7 1.6-2.4 Int._Unit/L Normal 019 [facility] (38788) Comment: Performed By: #### [id number] # ### MARCUS Microbiology Subsection [address] [place] [address] lipase level on 201 06-22-07 Lipase Lvl 37 9-82 Int._Unit/L Normal 02-21-2019 [facility] (12741) Comment: Performed By: #### [id number] #### MARCUS Urinalysis Automated Suggs bsection [address] [place] [address] lactic acid on 2018 Lactate [Moles/Vol] 1.4 0.4-2.0 mmol/L Normal 02-21-2019 [facility] (00 000) Comment: Order Comment: Sepsis Reflex order due to high lactic acid level Performed By: #### [id number] # ### MARCUS RemHemo [address] [place] [address] Lactate [Moles/Vol] 2.2 0.4-2.0 mmol/L High 02-21-2019 [facility] (00 000) Comment: Performed By: #### [id number] # ### MARCUS RemHemo [address] [place] [address] hep func panel on Albumin [Mass/Vol] 4.0 3.4-5.0 gm/dL Normal 02-21-2019 [facility] (00 000) Comment: Performed By: #### [id number] #### MARCUS Urinalysis Automated Suggs bsection [address] [place] [address] 25998 Albumin/Globulin [Mass 1.5 1.1-1.9 ratio Normal [address] [place] [address]] Health Sys tem (75550) Comment: Performed By: #### [id number] #### MARCUS Urinalysis Automated Suggs bsection [address] [place] [address] Alk Phos 69 33-110 Int._Unit/L Normal 02-21-2019 [facility] (20954) Comment: Performed By: #### [id number] #### MARCUS Urinalysis Automated Suggs bsection [address] [place] [address] ALT [Catalytic 18 7-45 Int._Unit/L Normal 02-21-[address] [facility] (82203) Comment: Performed By: #### [id number] #### MARCUS Urinalysis Automated Suggs bsection [address] [place] [address] AST [Catalytic 33 9-39 Int._Unit/L Normal 02-21-[address] [facility] (30463) Comment: Performed By: #### [id number] #### MARCUS Urinalysis Automated Suggs bsection [address] [place] [address] Bili Direct 0.10 0.00-0.30 mg/dL Normal 02-21-2019 [facility] (66879) Comment: Performed By: #### [id number] #### MARCUS Urinalysis Automated Suggs bsection [address] [place] [address] Bili Indirect 0.33 mg/dL Normal 02-21-2019 [facility] (53376) Comment: Result Comment: No establish ed ranges available for the indirect bilirubin Performed By: #### [id number] #### MARCUS Urinalysis Automated Suggs bsection [address] [place] [address] Bili Total 0.43 0.00-1.20 mg/dL Normal 02-21-[address] [facility] (55919) Comment: Performed By: #### [id number] #### MARCUS Urinalysis Automated Suggs bsection [address] [place] [address] Globulin (S) [Mass/Vol] 3.0 2.0-4.0 G/DL Normal 2018 [facility] (00 000) Comment: Performed By: #### [id number] #### MARCUS Urinalysis Automated Suggs bsection [address] [place] [address] Protein [Mass/Vol] 6.6 6.4-8.2 gm/dL Normal 02-21-2019 [facility] (00 000) Comment: Performed By: #### [id number] #### MARCUS Urinalysis Automated Suggs bsection [address] [place] [address] gases - blood on 05-03-07 Allens Test. Positive Normal 02-21-2019 [facility] (07013) Comment: Performed By: #### [id number] # ### MARCUS JeriHemo [address] [id number] Base Excess. -9 -2-3 mmol/L Low 02-21-2019 [facility] (63818) Comment: Performed By: #### [id number] # ### MARCUS JeriHemo [address] [place] [address] CO2 Tot. 18 22-28 mmol/L Low 02-21-2019 [facility] (52164) Comment: Performed By: #### [id number] # ### MARCUS JeriHemo [address] [id number] CPAP/PEEP(cmH2O). 0 Normal 02-21-2019 [facility] (32235) Comment: Performed By: #### [id number] # ### MARCUS JeriHemo [facility] [id number] FiO2. 21 % Normal 02-21-2019 [facility] (73929) Comment: Performed By: #### [id number] # ### MACRUS JeriHemo [address] [place] [address] HCO#. 17.2 22.0-26.0 mmol/L Low 02-21-2019 [facility] (13950) Comment: Performed By: #### [id number] # ### MARCUS JeriHemo [facility] [place] [address] O2 Devices. Room Air Normal 02-21-2019 [facility] (19137) Comment: Performed By: #### [id number] # ### MARCUS JeriHemo [facility] [id number] OPID. [id number] Normal 02-21-2019 [facility] (00623) Comment: Performed By: #### [id number] # ### MARCUS JeriHemo [facility] [id number] Oxygen (Bld) [Partial 85 80-100 mmHg Normal 02-22-20 19 [facility]] System (00 000) Comment: Performed By: #### [id number] # ### MARCUS RemHemo [facility] [id number] Oxygen saturation in Blood 96 95-100 % Normal [facility] (00 000) Comment: Performed By: #### [id number] # ### MARCUS RemHemo [address] [place] [address] P CO2. 32.7 35.0-45.0 mmHg Low 02-21-2019 [facility] (70576) Comment: Performed By: #### [id number] # ### MARCUS RemHemo [address] [place] [address] Patient Temp. NOT CALCULATED Normal 02-21-2019 [facility] (95374) Comment: Performed By: #### [id number] # ### MARCUS JeriHemo [address] [place] [address] pH (Bld) 7.329 7.350-7.450 Low 02-21-2019 [facility] () Comment: Performed By: #### [id number] # ### MARCUS JeriHemo [facility] [place] [address] PSV/IP(cmH2O). 0 Normal 02-21-[address] [facility] () Comment: Performed By: #### [id number] # ### MARCUS RemHemo [facility] [place] [address] Sample Site. R rad Normal 02-21-2019 [facility] () Comment: Performed By: #### [id number] # ### MARCUS JeriHemo [address] [place] [address] Sample Type. Arterial Normal 02-21-2019 [facility] () Comment: Performed By: #### [id number] # ### MARCUS JeriHemo [facility] [place] [address] Set RR(b/min). 0 Normal 02-21-[address] [facility] (91158) Comment: Performed By: #### [id number] # ### MARCUS RemHemo [facility] [place] [address] Tidal Volume(mL). 0 Normal 02-21-2019 [facility] (59907) Comment: Performed By: #### [id number] # ### MARCUS RemHemo [address] [place] [address] Vent Mode. NOT CALCULATED Normal 02-21-2019 [facility] (61549) Comment: Performed By: #### [id number] # ### MARCUS RemHemo [address] [place] [address] Allens Test. Neg Normal 02-21-2019 [facility] (47921) Comment: Performed By: #### [id number] # ### MARCUS RemHemo [address] [place] [address] Base Excess. -8 -2-3 mmol/L Low 02-21-2019 [facility] (60623) Comment: Performed By: #### [id number] # ### MARCUS RemHemo [address] [place] [address] CO2 Tot. 19 22-28 mmol/L Low 02-21-2019 [facility] (15959) Comment: Performed By: #### [id number] # ### MARCUS RemHemo [facility] [place] [address] CPAP/PEEP(cmH2O). NOT CALCULATED Normal 019 [facility] (00 000) Comment: Performed By: #### [id number] # ### MARCUS RemHemo [address] [place] [address] FiO2. 21 % Normal 02-21-2019 [facility] (53085) Comment: Performed By: #### [id number] # ### MARCUS RemHemo [facility] [place] [address] HCO#. 17.9 22.0-26.0 mmol/L Low 02-21-2019 [facility] (30310) Comment: Performed By: #### [id number] # ### MARCUS RemHemo [facility] [place] [address] O2 Devices. Room Air Normal 02-21-2019 [facility] (47474) Comment: Performed By: #### [id number] # ### MARCUS RemHemo [address] [place] [address] OPID. [id number] Normal 02-21-2019 [facility] (96159) Comment: Performed By: #### [id number] # ### MARCUS RemHemo [address] [place] [address] Oxygen (Bld) [Partial 86 80-100 mmHg Normal 02-22-20 19 [facility]] System (00 000) Comment: Performed By: #### [id number] # ### MARCUSShawn WilcoxHemo [facility] [id number] Oxygen saturation in Blood 96 95-100 % Normal [facility] (00 000) Comment: Performed By: #### [id number] # ### MARCUS JeriHemo [facility] [place] [address] P CO2. 34.1 35.0-45.0 mmHg Low 02-21-2019 [facility] (13454) Comment: Performed By: #### [id number] # ### MARCUS RemHemo [address] [place] [address] Patient Temp. NOT CALCULATED Normal 02-21-2019 [facility] (82285) Comment: Performed By: #### [id number] # ### [place] [address] pH (Bld) 7.329 7.350-7.450 Low 02-21-2019 [facility] (99998) Comment: Performed By: #### [id number] # ### [place] [address] PSV/IP(cmH2O). NOT CALCULATED Normal 02-21-2019 [facility] (30507) Comment: Performed By: #### [id number] # ### [facility] [address] [place] [address] Sample Site. R rad Normal 02-21-2019 [facility] (89100) Comment: Performed By: #### [id number] # ### MARCUS JeriHemo [address] [place] [address] Sample Type. Arterial Normal 02-21-2019 [facility] (57078) Comment: Performed By: #### [id number] # ### [place] [address] Set RR(b/min). NOT CALCULATED Normal 02-21-2019 [facility] (31017) Comment: Performed By: #### [id number] # ### [facility]US [facility] [address] [place] [address] Tidal Volume(mL). NOT CALCULATED Normal 019 [facility] (00 000) Comment: Performed By: #### [id number] # ### MARCUS RemHemo [facility] [place] [address] Vent Mode. NOT CALCULATED Normal 02-21-2019 [facility] (46812) Comment: Performed By: #### [id number] # ### MARCUS RemHemo [facility] [id number] ethanol on Ethanol [Mass/Vol] <10 <=10 mg/dL Normal 02-21-2019 [facility] (12198) Comment: Performed By: #### [id number] # ### MARCUS Microbiology Subsection [address] [place] [address] egfr on 2019-02-21 GFR/1.73 sq M predicted 49 mL/min/1.73 m2 Normal 0 02-21-2019 [facility] among non-blacks [facility] (05434) (S/P/Bld) [Vol rate/Area] Comment: Order Comment: Straight Cath as needed Performed By: #### [id number] #### MARCUS Urinalysis Automated Suggs bsection [address] [place] [address] GFR/1.73 sq M predicted 40 mL/min/1.73 m2 Normal 0 02-21-2019 [facility] among non-blacks [facility] (90645) (S/P/Bld) [Vol rate/Area] Comment: Order Comment: Straight Cath as needed Performed By: #### [id number] #### MARCUS Urinalysis Automated Suggs bsection [address] [place] [address] ck on 2019-02-21 Total CK 46 <=215 Int._Unit/L Normal 02-21-2019 [facility] (81023) Comment: Performed By: #### [id number] #### MARCUS Urinalysis Automated Suggs bsection [facility] [place] [address] cbc w/ auto diff on 2019-02-21 Erythrocyte distribution 14.7 11.5-14.5 % High 02-21 [facility] (RBC) [Ratio] [facility] System (09173) Comment: Performed By: #### [id number] #### MARCUS Urinalysis Automated Suggs bsection [address] [place] [address] Hematocrit (Bld) [Volume 41.4 36.0-48.0 % Normal 02-21 [facility] (86672) Comment: Performed By: #### [id number] #### MARCUS Urinalysis Automated Suggs bsection [address] [place] [address] Hemoglobin (Bld) 13.3 12.0-16.0 G/DL Normal 02-21-2019 [facility] [Mass/Vol] Health [facility] (38564) Comment: Performed By: #### [id number] #### MARCUS Urinalysis Automated Suggs bsection [address] [place] [address] MCH (RBC) [Entitic mass] 30.7 27.0-31.0 pg Normal 02-21 [facility] (00 000) Comment: Performed By: #### [id number] #### MARCUS Urinalysis Automated Suggs bsection [address] [place] [address] MCHC (RBC) [Mass/Vol] 32.2 33.0-37.0 G/DL Low 02-22-20 19 [facility] (00 000) Comment: Performed By: #### [id number] #### MARCUS Urinalysis Automated Suggs bsection [address] [place] [address] MCV (RBC) [Entitic vol] 95.5 78.0-100.0 fL Normal 02-21 [facility] (44938) Comment: Performed By: #### [id number] #### MARCUS Urinalysis Automated Suggs bsection [address] [place] [address] Platelet mean volume 7.9 7.4-11.0 fL Normal 9 [facility] (Bld) [Entitic vol] System (76062) Comment: Performed By: #### [id number] #### MARCUS Urinalysis Automated Suggs bsection [address] [place] [address] Platelets (Bld) [#/Vol] 66 130-400 E3/mcL Low 2018 [facility] () Comment: Performed By: #### [id number] #### MARCUS Urinalysis Automated Suggs bsection [address] [place] [address] RBC (Bld) [#/Vol] 4.34 3.90-5.40 E6/mcL Normal 02-21-2019 [facility] () Comment: Performed By: #### [id number] #### MARCUS Urinalysis Automated Suggs bsection [address] [place] [address] WBC (Bld) [#/Vol] 4.2 3.6-11.0 E3/mcL Normal 02-21-2019 [facility] () Comment: Performed By: #### [id number] #### MARCUS Urinalysis Automated Suggs bsection [address] [place] [address] bmp on 2019-02-21 Anion gap [Moles/Vol] 18 10-20 mEq/L Normal 02-22-20 19 [facility] () Comment: Performed By: #### [id number] #### MARCUS Urinalysis Automated Suggs bsection [address] [place] [address] Calcium [Mass/Vol] 8.6 8.6-10.3 mg/dL Normal 02-21-2019 [facility] () Comment: Performed By: #### [id number] #### MARCUS Urinalysis Automated Suggs bsection [address] [place] [address] Chloride [Moles/Vol] 106 98-107 mEq/L Normal 9 [facility] () Comment: Performed By: #### [id number] #### MARCUS Urinalysis Automated Suggs bsection [address] [place] [address] CO2 [Moles/Vol] 16.0 21.0-32.0 mEq/L Low 02-21-2019 [facility] (03538) Comment: Performed By: #### [id number] #### MARCUS Urinalysis Automated Suggs bsection [address] [place] [address] Creatinine [Mass/Vol] 1.4 0.5-1.1 mg/dL High 02-22-20 [facility] (00 000) Comment: Performed By: #### [id number] #### MARCUS Urinalysis Automated Suggs bsection [address] [place] [address] Glucose [Mass/Vol] 165 70-99 mg/dL High 02-21-2019 [facility] (41491) Comment: Performed By: #### [id number] #### MARCUS Urinalysis Automated Suggs bsection [address] [place] [address] Potassium [Moles/Vol] 2.9 3.5-5.3 mEq/L Low 02-22-20 [facility] (00 000) Comment: Performed By: #### [id number] #### MARCUS Urinalysis Automated Suggs bsection [facility] [place] [address] Sodium [Moles/Vol] 137 136-145 mEq/L Normal 02-21-2019 [facility] ( 000) Comment: Performed By: #### [id number] #### MARCUS Urinalysis Automated Suggs bsection [address] [place] [address] Urea nitrogen [Mass/Vol] 14 6-23 mg/dL Normal 02-21 [facility] (00 000) Comment: Performed By: #### [id number] #### MARCUS Urinalysis Automated Suggs bsection [address] [place] [address]227 Urea nitrogen/Creatinine 10.0 5.4-30.0 ratio Normal 02-21 [facility] [Mass ratio] [facility] (77286) Comment: Performed By: #### [id number] #### MARCUS Urinalysis Automated Suggs bsection [address] [place] [address] auto diff on 02-21 Basophils (Bld) [#/Vol] 0.0 0.0-0.2 E3/mcL Normal 2018 [facility] (56820) Comment: Order Comment: Order Added b y Discern Expert. Performed By: #### [id number] # ### MARCUS Microbiology Subsection [address] [place] [address] Basophils/100 WBC (Bld) 0.4 0.0-2.0 % Normal 2018 [facility] (00 000) Comment: Order Comment: Order Added b y Discern Expert. Performed By: #### [id number] # ### MARCUS Microbiology Subsection [address] [place] [address] Eos Absolute 0.1 0.0-0.7 E3/mcL Normal 02-21-2019 [facility] (38718) Comment: Order Comment: Order Added b y Discern Expert. Performed By: #### [id number] # ### MARCUS Microbiology Subsection [address] [place] [address] Eosinophils/100 WBC (Bld) 1.4 0.0-11.0 % Normal [facility] (00 000) Comment: Order Comment: Order Added b y Discern Expert. Performed By: #### [id number] # ### MARCUS Microbiology Subsection [address] [place] [address] Lymphocytes (Bld) [#/Vol] 1.0 1.2-3.4 E3/mcL Low [facility] (00 000) Comment: Order Comment: Order Added b y Discern Expert. Performed By: #### [id number] # ### MARCUS Microbiology Subsection [address] [place] [address] Lymphocytes/100 WBC (Bld) 24.1 20.0-55.0 % Normal [facility] (69379) Comment: Order Comment: Order Added b y Discern Expert. Performed By: #### [id number] # ### MARCUS Microbiology Subsection [address] [place] [address] [place] Absolute 0.5 0.0-0.7 E3/mcL Normal 02-21-2019 [facility] (10017) Comment: Order Comment: Order Added b y Discern Expert. Performed By: #### [id number] # ### MARCUS Microbiology Subsection [address] [place] [address] Monocytes/100 WBC (Bld) 10.8 0.0-10.0 % High 2018 [facility] (00 000) Comment: Order Comment: Order Added b y Discern Expert. Performed By: #### [id number] # ### MARCUS Microbiology Subsection [address] [place] [address] 10884 Neutro Absolute 2.7 1.4-6.5 E3/mcL Normal 02-21-2019 [facility] (04381) Comment: Order Comment: Order Added erma Aldana Expert. Performed By: #### [id number] # ### MARCUS Microbiology Subsection [address] [place] [address] 13427 Neutro Auto 63.3 37.0-75.0 % Normal 02-21-2019 [facility] (70099) Comment: Order Comment: Order Added erma Aldana Expert. Performed By: #### [id number] # ### MARCUS Microbiology Subsection [address] [place] [address] ammonia on Ammonia (P) [Mass/Vol] 55 16-53 mcmol/L High 019 [facility] (00 000) Comment: Performed By: #### [id number] # ### MARCUS Microbiology Subsection [address] [place] [address] 39392 acetamnphn lvl on Acetaminoph Lvl <10 10-30 Normal 02-21-2019 [facility] (69957) Comment: Performed By: #### [id number] # ### MARCUS Microbiology Subsection [address] [place] [address] 32416 nm myocardial perfusion single - stress only on 2018-12-26 NM Nuclear Report Normal 12-26-2018 [facility] Patient: PABLO OSMAN ([id number]) SINGLE - Med Rec#: [id number] (Age): 1975(43y) STRESS ONLY Height: Study Date: 12/26/2018 Weight: Room#: BSA: Type: Outpatient Loc: Sex: F Indications: -Chest pain, other 786.59 - Checklists: -Patient verbally identified self -Consent erika d and placed in chart -Procedure verified and explained to patient -Medication Reconciliation completed. -Discharge instruction s given Nuclear Cardiology Conclusion: Overall intermediate-risk study based on SCAI criteria (1-3% predicted annual cardiac mortality). Normal stress regadenoson myocard ial perfusion study. Normal LV size. Global left ventricular sys tolic function was normal, with an EF of 59%. Stress ECG Conclusion: Normal pharmacologic dobutamine stress ECG with no ECG murray es consistent with ischemia. HR Response to stress: normal BP r esponse to stress: normal The patient experienced no chest pain. The te st was terminated due to completion of vasodilator infusion. Baseline ECG: Normal ECG. Pharmacologic Protocol: - Tolerated Medication Infusion - Tolerated Medication Infusion. Stress ECG : No ST-segment depression under pharmacologic stress. Recovery ECG: No significant ST changes. No chest pain. Rare PVC. Normal b lood pressure response. Hemodynamics REST STRESS RECOVERY SBP 114 mmHg 164 mmHg 113 mmHg DBP 74 mmHg 91 mmHg 70 mmHg HR 87 bpm 153 bpm 100 bpm %MPHR 87 % Imaging Protocol: This was a gated SPECT myocardial perfusion imaging study. A stress only imaging protocol was followed using Tc-99m tetrofosmin (Myoview) injected intravenously. For the stress portion of the study, 8.7 mCi was administered at 12/26/2018 08:45:00. Stress imaging was performed at 10:00:00. Perfusion Interpretation: Stress nuclear myocardial perfusion imaging was normal. No r est imaging was performed. The stress nuclear myocardial perfusion imaging was normal. No resting imaging was performed. Wall Motion Interpretation: The patient's calculated post stress LVEF was 59%. Gated concepción ging under post-stress conditions demonstrated normal wall motion. Nuclear Doctor Interpreted Study and Electronically signed a t 12/26/2018 14:58:38 by: Mattie Hayden MD, RVPI Dictated by: MATTIE HAYDEN on WedDec 26, 2018 2:58:38 PM ED T Transcribed by: MATTIE HAYDEN on WedDec 26, 2018 2:58:38 PM EDT Finalized by: MATTIE HAYDEN on WedDec 26, 2018 2:58:38 PM E DT Comment: Order Comment: Reason for ex am?:c/p Injury/Trauma or Illness?:Il lness/Other How long have you had these symptoms (acute/chronic)?:Unknown Type of Exam?:Unknown Additional signs and symptom s?:c/p No panel information on 2018-12-26 Nuclear Report 12-26-2018 [facility] ([id number]) Patient: PABLO OSMAN Med Rec#: [id number] (Age): 1975(43y ) Height: Study Date: 019 Weight: Room#: BS A: Type: Outpatient Loc: Sex: F Indications: -Chest pain, other 786.59 - Checklists: -Pat ient verbally identified self -Consent signed and placed in shira t -Procedure verified and explained to patient -Medication Rec onciliation completed. -Discharge instructions given Nuclear Cardiolo gy Conclusion: Overall intermediate-risk study based on SCAI cr iteria (1-3% predicted annual cardiac mortality). Normal stress reg adenoson myocardial perfusion study. Normal LV size. Global left vent ricular systolic function was normal, with an EF of 59%. Stress ECG Conclusion: Normal pharmacologic dobutamine stress ECG with no ECG westley nges consistent with ischemia. HR Response to stress: normal BP r esponse to stress: normal The patient experienced no chest pain. The te st was terminated due to completion of vasodilator infusion. B aseline ECG: Normal ECG. Pharmacologic Protocol: - Tolerated Medic ation Infusion - Tolerated Medication Infusion. Stress ECG : No ST -segment depression under pharmacologic stress. Recovery ECG: No si gnificant ST changes. No chest pain. Rare PVC. Normal blood pressure r esponse. Hemodynamics REST S TRESS RECOVERY SBP 114 mmHg 164 mmHg 113 mmHg DBP 74 mmHg 91 mmH g 70 mmHg HR 87 bpm 153 bpm 100 bpm %MPHR 87 % Imaging Prot ocol: This was a gated SPECT myocardial perfusion imaging study. A str ess only imaging protocol was followed using Tc-99m tetrofosmin (Myov iew) injected intravenously. For the stress portion of the study , 8.7 mCi was administered at 12/26/2018 08:45:00. Stress imaging was performed at 10:00:00. Perfusion Interpretation: Stress nuclear myoc ardial perfusion imaging was normal. No rest imaging was performed. The stress nuclear myocardial perfusion imaging was normal. No r esting imaging was performed. Wall Motion Interpretation: The pat ient's calculated post stress LVEF was 59%. Gated imaging under po st-stress conditions demonstrated normal wall motion. Nuclear Doctor Interpreted Study and Electronically signed at 12/26/2018 14 :58:38 by: Mattie Hayden MD, RVPI Interface, Rad In [facility] X per Echopacs - 12/26/2018 3:48 PM EDT Nuclear Report 12-26-2018 [facility] ([id number]) Patient: PABLO OSMAN [facility] Rec#: [id number] (Age): 1975(43y) Height: Study Date: 12/26/2018 Weight: Room#: BSA: Type: Outpatient Loc: Sex: F Indications: -Chest pain, other 786.59 - Checklists: -Patient verbally identified self -Consent erika d and placed in chart -Procedure verified and explained to patient -Medication Reconciliation completed. -Discharge instruction s given Nuclear Cardiology Conclusion: Overall intermediate-risk study based on SCAI criteria (1-3% predicted annual cardiac mortality). Normal stress regadenoson myocard ial perfusion study. Normal LV size. Global left ventricular sys tolic function was normal, with an EF of 59%. Stress ECG Conclusion: Normal pharmacologic dobutamine stress ECG with no ECG murray es consistent with ischemia. HR Response to stress: normal BP r esponse to stress: normal The patient experienced no chest pain. The te st was terminated due to completion of vasodilator infusion. Baseline ECG: Normal ECG. Pharmacologic Protocol: - Tolerated Medication Infusion - Tolerated Medication Infusion. Stress ECG : No ST-segment depression under pharmacologic stress. Recovery ECG: No significant ST changes. No chest pain. Rare PVC. Normal b lood pressure response. Hemodynamics REST STRESS RECOVERY SBP 114 mmHg 164 mmHg 113 mmHg DBP 74 mmHg 91 mmHg 70 mmHg HR 87 bpm 153 bpm 100 bpm %MPHR 87 % Imaging Protocol: This was a gated SPECT myocardial perfusion imaging study. A stress only imaging protocol was followed using Tc-99m tetrofosmin (Myoview) injected intravenously. For the stress portion of the study, 8.7 mCi was administered at 12/26/2018 08:45:00. Stress imaging was performed at 10:00:00. Perfusion Interpretation: Stress nuclear myocardial perfusion imaging was normal. No r est imaging was performed. The stress nuclear myocardial perfusion imaging was normal. No resting imaging was performed. Wall Motion Interpretation: The patient's calculated post stress LVEF was 59%. Gated concepción ging under post-stress conditions demonstrated normal wall motion. Nuclear Doctor Interpreted Study and Electronically signed a t 12/26/2018 14:58:38 by: Mattie Hayden MD, RVPI xr chest 2 views on 2018-12-21 XR Chest 2 Views Exam Date/Time: Normal 019 [facility] 12/21/2018 04:05 EST H ealt System Reason for Exam: (00 000) Cough Report STUDY: XR Chest 2 Views; 12/21/2018 4:05 am INDICATION: Cough. COMPARISON: 10/02/2018 ACCESSION NUMBER(S): [id number] ORDERING CLINICIAN: Bob Wick FINDINGS: No significant interval change. CARDIOMEDIASTINAL SILHOUETTE: Cardiomediastinal silhouette is stable in size and configura tion. LUNGS: Postsurgical changes of hiat al hernia repair. No pulmonary consolidation, pleural effusion or pneumothorax. ABDOMEN: No remarkable upper abdominal findings. BONES: No acute osseous abnormality. IMPRESSION: No acute cardiopulmonary process. FINAL REPORT Dictated: 12/21/2018 4:49 am Nicole Anderson MD Signed (Electronic Signature): 12/21/2018 4:49 am Signed by: Nicole Anderson MD Technologist: TAMIKO influenza a&b ag on 2018-12-21 Influenzae A Ag Negative Negative Normal 12-21-2018 [facility] (00 000) Comment: Result Comment: Test Perform ed by PCR Testing Performed By: #### [id number] #### MARCUS Urinalysis Automated [facility] [address] [place] [address] Influenzae B Ag Negative Negative Normal 12-21-2018 [facility] (00 000) Comment: Result Comment: Test Perform ed by PCR Testing Performed By: #### [id number] #### MARCUS Urinalysis Automated [facility] [address] [place] [address] ua complete on 2018 Color (U) Minerva Yellow Abnormal 12-12-2018 [facility] (22004) Comment: Performed By: #### [id number] # ### MARCUS [employer] [address] [place] [address] Glucose (U) [Mass/Vol] Negative Negative mg/dL Normal 019 [facility] (63000) Comment: Performed By: #### [id number] # ### MARCUS [employer] [address] [place] [address] Ketones Ql (U) Trace Normal 12-12-[address] [facility] (39398) Comment: Performed By: #### [id number] # ### MARCUS [employer] [address] [place] [address] RBC (U) [#/Vol] 3-5 0-3 Abnormal 12-12-2018 [facility] (28358) Comment: Performed By: #### [id number] # ### MARCUS [employer] [address] [place] [address] UA Blood 2+ Negative Abnormal 12-12-2018 [facility] (29084) Comment: Performed By: #### [id number] # ### MARCUS [employer] [address] [place] [address] UA Clarity Cloudy Clear Abnormal 12-12-[address] [facility] (29758) Comment: Performed By: #### [id number] # ### MARCUS [employer] [address] [place] [address] UA Hyal Cast 5-10 0-2 Abnormal 12-12-2018 [facility] (54044) Comment: Performed By: #### [id number] # ### MARCUS [employer] [address] [place] [address] UA Leuk Est 3+ Negative Abnormal 12-12-2018 [facility] (98386) Comment: Performed By: #### [id number] # ### MARCUS [employer] [address] [place] [address] UA Nitrite Negative Negative Normal 12-12-[address] [facility] (06532) Comment: Performed By: #### [id number] # ### MARCUS [employer] [address] [place] [address] UA pH 5.0 4.6-8.0 Normal 12-12-2018 [facility] (00763) Comment: Performed By: #### [id number] # ### MARCUS [employer] [address] [place] [address] UA Protein Negative Negative Normal 12-12-[address] [facility] (83200) Comment: Performed By: #### [id number] # ### MARCUS [employer] [address] [place] [address] UA Spec Grav 1.020 1.003-1.030 Normal 12-12-[address] [facility] (94208) Comment: Performed By: #### [id number] # ### MARCUS [employer] [address] [place] [address] UA Squam Epithelial 20-30 0-5 Abnormal 12-12-2018 [facility] (51836) Comment: Performed By: #### [id number] # ### MARCUS [employer] [address] [place] [address] UA Urobilinogen 2.0 mg/dL Abnormal 12-12-2018 [facility] (28147) Comment: Result Comment: Due to a man ufacturing issue, low positive urobilinogen results may be fasely positi ve. Correlate with urine bilirubin and additional clinical/laborato ry findings to assess the risk of hemolytic anemia or liver disease. If clinically indicated, repeat testing with an alternate method is availabl e by contacting the laboratory within 24 hours. Performed By: #### [id number] # ### MARCUS [employer] [address] [place] [address] UA WBC 10-20 0-5 Abnormal 12-12-2018 [facility] (46546) Comment: Performed By: #### [id number] # ### MARCUS [employer] [address] [place] [address] Urobilinogen Qn (U) Negative Negative Normal 12-12-2018 [facility] (00 000) Comment: Performed By: #### [id number] # ### MARCUS [employer] [address] [place] [address] u drug screen on 06-12-24 U Amph Scr Negative Negative Normal 12-12-[address] [facility] (74881) Comment: Performed By: #### [id number] # ### MARCUS [employer] [address] [place] [address] U Kalyani Scr Negative Negative Normal 12-12-[address] [facility] (34749) Comment: Performed By: #### [id number] # ### MARCUS [employer] [address] [place] [address] U Benzodia Scr Negative Negative Normal 12-12-[address] [facility] (37238) Comment: Performed By: #### [id number] # ### MARCUS [employer] [address] [place] [address] U Cannab Scr Negative Negative Normal 12-12-2018 [facility] (89694) Comment: Performed By: #### [id number] # ### MARCUS [employer] [address] [place] [address] U Cocaine Scr Negative Negative Normal 12-12-2018 [facility] (35653) Comment: Performed By: #### [id number] # ### MARCUS [employer] [address] [place] [address] U Opiate Scr Negative Negative Normal 12-12-2018 [facility] (01081) Comment: Performed By: #### [id number] # ### MARCUSShawn WilcoxChem [address] [place] [address] U PCP Scr Negative Negative Normal 12-12-2018 [facility] (40680) Comment: Performed By: #### [id number] # ### MARCUSShawn Zelaya [address] [place] [address] troponin-i on 12-12 Troponin I.cardiac .01 .00-.03 ng/mL Normal 12-12-2018 [facility] [Mass/Vol] [facility] (42127) Comment: Performed By: #### [id number] # ### MARCUSShawn Zelaya [facility] [place] [address] magnesium on 12-12 Magnesium [Mass/Vol] 2.0 1.6-2.4 mg/dL Normal 9 [facility] (00 000) Comment: Performed By: #### [id number] # ### MARCUSShawn WilcoxChem [address] [place] [address] hep func panel on Albumin [Mass/Vol] 4.4 3.4-5.0 gm/dL Normal 12-12-2018 [facility] (00 000) Comment: Performed By: #### [id number] # ### MARCUS Zelaya [address] [place] [address] Albumin/Globulin [Mass 1.3 1.1-1.9 ratio Normal [facility]] [facility] (42675) Comment: Performed By: #### [id number] # ### MARCUS [employer] [address] [place] [address] Alk Phos 69 33-110 Int._Unit/L Normal 12-12-2018 [facility] (71965) Comment: Performed By: #### [id number] # ### MARCUS [employer] [address] [place] [address] ALT [Catalytic 34 7-45 Int._Unit/L Normal 12-12-2018 [facility] (22769) Comment: Performed By: #### [id number] # ### MARCUS [employer] [address] [place] [address] AST [Catalytic 69 9-39 Int._Unit/L High 12-12-2018 [facility] (38030) Comment: Performed By: #### [id number] # ### MARCUS [employer] [address] [place] [address] Bili Direct 0.26 0.00-0.30 mg/dL Normal 12-12-2018 [facility] (15678) Comment: Performed By: #### [id number] # ### MARCUS [employer] [address] [place] [address] Bili Indirect 0.57 mg/dL Normal 12-12-2018 [facility] (63830) Comment: Result Comment: No establish ed ranges available for the indirect bilirubin Performed By: #### [id number] # ### MARCUS [employer] [address] [place] [address] Bili Total 0.83 0.00-1.20 mg/dL Normal 12-12-[address] [facility] (87296) Comment: Performed By: #### [id number] # ### MARCUS [employer] [address] [place] [address] Globulin (S) [Mass/Vol] 3.0 2.0-4.0 G/DL Normal 2018 [facility] (00 000) Comment: Performed By: #### [id number] # ### MARCUS [employer] [address] [place] [address] Protein [Mass/Vol] 7.7 6.4-8.2 gm/dL Normal 12-12-2018 [facility] (00 000) Comment: Performed By: #### [id number] # ### MARCUS [facility] [address] [place] [address] ethanol on Ethanol [Mass/Vol] <10 <=10 mg/dL Normal 12-12-2018 [facility] (35087) Comment: Performed By: #### [id number] # ### MARCUS [facility] [address] [place] [address] egfr on 2018-12-12 GFR/1.73 sq M predicted 42 mL/min/1.73 m2 Normal 0 12-12-2018 [facility]bl[facility] (73220) (S/P/Bld) [Vol rate/Area] Comment: Order Comment: With T4fr Ref kurt Performed By: #### [id number] # ### MARCUSShawn Zelaya [address] [place] [address] GFR/1.73 sq M predicted 35 mL/min/1.73 m2 Normal 0 12-12-2018 [facility] among non-blacks [facility] (94567) (S/P/Bld) [Vol rate/Area] Comment: Order Comment: With T4fr Ref kurt Performed By: #### [id number] # ### MARCUSShawn WilcoxChem [facility] [place] [address] cbc w/ auto diff on 2018-12-12 Erythrocyte distribution 13.8 11.5-14.5 % Normal 12-12 [facility] width (RBC) [Ratio] [facility] (15379) Comment: Performed By: #### [id number] # ### MARCUSShawn Zelaya [facility] [place] [address] Hematocrit (Bld) [Volume 44.1 36.0-48.0 % Normal 12-12 [facility] fraction] [facility] (31473) Comment: Performed By: #### [id number] # ### MARCUSShawn Zelaya [address] [place] [address] Hemoglobin (Bld) 14.4 12.0-16.0 G/DL Normal 12-12-2018 [facility] [Mass/Vol] [facility] (86564) Comment: Performed By: #### [id number] # ### MARCUSShawn WilcoxChem [address] [place] [address] MCH (RBC) [Entitic mass] 30.3 27.0-31.0 pg Normal 12-12 [facility] (00 000) Comment: Performed By: #### [id number] # ### MARCUSShawn WilcoxChem [address] [place] [address] MCHC (RBC) [Mass/Vol] 32.7 33.0-37.0 G/DL Low 12-12-19 19 [facility] (00 000) Comment: Performed By: #### [id number] # ### MARCUS Zelaya [address] [place] [address] MCV (RBC) [Entitic vol] 92.9 78.0-100.0 fL Normal 12-12 [facility] (78170) Comment: Performed By: #### [id number] # ### MARCUS [facility] [address] [place] [address] Platelet mean volume 8.1 7.4-11.0 fL Normal 9 [facility] (Bld) [Entitic vol] System (67353) Comment: Performed By: #### [id number] # ### MARCUS [employer] [facility] [place] [address] Platelets (Bld) [#/Vol] 122 130-400 E3/mcL Low 2018 [facility] (00 000) Comment: Performed By: #### [id number] # ### MARCUS WilcoxIngresse [facility] [place] [address] RBC (Bld) [#/Vol] 4.75 3.90-5.40 E6/mcL Normal 12-12-2018 [facility] (00 000) Comment: Performed By: #### [id number] # ### MARCUS WilcoxIngresse [address] [place] [address] WBC (Bld) [#/Vol] 6.2 3.6-11.0 E3/mcL Normal 12-12-2018 [facility] (00 000) Comment: Performed By: #### [id number] # ### MARCUS WilcoxIngresse [facility] [place] [address] bmp on 2018-12-12 Anion gap [Moles/Vol] 16 10-20 mEq/L Normal 12-12-19 19 [facility] (00 000) Comment: Performed By: #### [id number] # ### MARCUSShawn WilcoxIngresse [facility] [place] [address] Calcium [Mass/Vol] 9.5 8.6-10.3 mg/dL Normal 12-12-2018 [facility] (00 000) Comment: Performed By: #### [id number] # ### MARCUSShawn WilcoxIngresse [facility] [place] [address] Chloride [Moles/Vol] 105 98-107 mEq/L Normal 9 [facility] (00 000) Comment: Performed By: #### [id number] # ### MARCUS [employer] [address] [place] [address] CO2 [Moles/Vol] 20.0 21.0-32.0 mEq/L Low 12-12-2018 [facility] (40184) Comment: Performed By: #### [id number] # ### MARCUS [employer] [facility] [place] [address] Creatinine [Mass/Vol] 1.6 0.5-1.1 mg/dL High 12-12-19 19 [facility] (00 000) Comment: Performed By: #### [id number] # ### MARCUS JeriIn[employer] [facility] [place] [address] Glucose [Mass/Vol] 150 70-99 mg/dL High 12-12-2018 [facility] (54256) Comment: Performed By: #### [id number] # ### MARCUS JeriIn[employer] [facility] [place] [address] Potassium [Moles/Vol] 4.4 3.5-5.3 mEq/L Normal 12-12-19 19 [facility] (00 000) Comment: Performed By: #### [id number] # ### MARCUS JeriIn[employer] [facility] [place] [address] Sodium [Moles/Vol] 137 136-145 mEq/L Normal 12-12-2018 [facility] (00 000) Comment: Performed By: #### [id number] # ### MARCUS JeriIngres[employer] [facility] [place] [address] Urea nitrogen [Mass/Vol] 27 6-23 mg/dL High 12-12 [facility] (00 000) Comment: Performed By: #### [id number] # ### MARCUS RemIngresse [facility] [place] [address] Urea nitrogen/Creatinine 16.9 5.4-30.0 ratio Normal 12-12 [facility] [Mass ratio] [facility] (15127) Comment: Performed By: #### [id number] # ### MARCUS RemIngresse [facility] [place] [address] auto diff on 2019-0 2-25 Basophils (Bld) [#/Vol] 0.0 0.0-0.2 E3/mcL Normal 2018 [facility] (95080) Comment: Order Comment: With T4fr Ref kurt Performed By: #### [id number] # ### MARCUS [employer] [address] [place] [address] Basophils/100 WBC (Bld) 0.4 0.0-2.0 % Normal 2018 [facility] (00 000) Comment: Order Comment: With T4fr Ref kurt Performed By: #### [id number] # ### MARCUS [employer] [facility] [place] [address] Eos Absolute 0.0 0.0-0.7 E3/mcL Normal 12-12-2018 [facility] (20014) Comment: Order Comment: With T4fr Ref kurt Performed By: #### [id number] # ### MARCUS RemIngresse [address] [place] [address] Eosinophils/100 WBC (Bld) 0.1 0.0-11.0 % Normal 11-19 [facility] (00 000) Comment: Order Comment: With T4fr Ref kurt Performed By: #### [id number] # ### MARCUS [employer] [facility] [place] [address] Lymphocytes (Bld) [#/Vol] 0.6 1.2-3.4 E3/mcL Low 11-19 [facility] (00 000) Comment: Order Comment: With T4fr Ref kurt Performed By: #### [id number] # ### MARCUS [employer] [address] [place] [address] Lymphocytes/100 WBC (Bld) 9.6 20.0-55.0 % Low 11-19 [facility] (00 000) Comment: Order Comment: With T4fr Ref kurt Performed By: #### [id number] # ### MARCUS [employer] [address] [place] [address] Laporte Absolute 0.6 0.0-0.7 E3/mcL Normal 12-12-2018 [facility] (72892) Comment: Order Comment: With T4fr Ref kurt Performed By: #### [id number] # ### MARCUS [employer] [address] [place] [address] Monocytes/100 WBC (Bld) 9.4 0.0-10.0 % Normal 2018 [facility] (00 000) Comment: Order Comment: With T4fr Ref kurt Performed By: #### [id number] # ### MARCUS [facility] [address] [place] [address] Neutro Absolute 5.0 1.4-6.5 E3/mcL Normal 12-12-2018 [facility] (67952) Comment: Order Comment: With T4fr Ref krut Performed By: #### [id number] # ### MARCUS [employer] [address] [place] [address] Neutro Auto 80.5 37.0-75.0 % High 12-12-2018 [facility] (87364) Comment: Order Comment: With T4fr Ref kurt Performed By: #### [id number] # ### MARCUS [employer] [address] [place] [address] ua complete on 2018 Color (U) Yellow Yellow Normal 12-03-2018 [facility] (38605) Comment: Performed By: #### [id number] #### MARCUS Wilcox[employer] [facility] [place] [address] Glucose (U) [Mass/Vol] Negative Negative mg/dL Normal 019 [facility] (48262) Comment: Performed By: #### [id number] #### MARCUS [employer] [address] [place] [address] Ketones Ql (U) Negative Negative Normal 12-03-[address] [facility] (50076) Comment: Performed By: #### [id number] #### MARCUS [employer] [address] [place] [address] RBC (U) [#/Vol] 3-5 0-3 Abnormal 12-03-2018 [facility] (17059) Comment: Performed By: #### [id number] #### MARCUS [employer] [address] [place] [address] UA Blood Negative Negative Normal 12-03-2018 [facility] (31811) Comment: Performed By: #### [id number] #### MARCUS [employer] [address] [place] [address] UA Bacteria 1+ None /HPF Abnormal 12-03-2018 [facility] (07619) Comment: Performed By: #### [id number] #### MARCUS [employer] [address] [place] [address] UA Clarity SltCloudy Clear Abnormal 12-03-[address] [facility] (87498) Comment: Performed By: #### [id number] #### MARCUS [employer] [address] [place] [address] UA Leuk Est Trace Negative Normal 12-03-2018 [facility] (19964) Comment: Performed By: #### [id number] #### MARCUS [employer] [address] [place] [address] UA Nitrite Negative Negative Normal 12-03-[address] [facility] (06228) Comment: Performed By: #### [id number] #### MARCUS [employer] [address] [place] [address] UA pH 6.0 4.6-8.0 Normal 12-03-2018 [facility] (14937) Comment: Performed By: #### [id number] #### MARCUS [employer] [address] [place] [address] UA Protein Negative Negative Normal 12-03-[address] [facility] (02726) Comment: Performed By: #### [id number] #### MARCUS [employer] [address] [place] [address] UA Spec Grav 1.016 1.003-1.030 Normal 12-03-[address] [facility] (92310) Comment: Performed By: #### [id number] #### MARCUS [employer] [address] [place] [address] UA Squam Epithelial 10-20 0-5 Abnormal 12-03-2018 [facility] (75510) Comment: Performed By: #### [id number] #### MARCUS [employer] [address] [place] [address] UA Urobilinogen Negative Normal 12-03-2018 [facility] (43745) Comment: Result Comment: Due to a man ufacturing issue, low positive urobilinogen results may be fasely positi ve. Correlate with urine bilirubin and additional clinical/laborato ry findings to assess the risk of hemolytic anemia or liver disease. If clinically indicated, repeat testing with an alternate method is availabl e by contacting the laboratory within 24 hours. Performed By: #### [id number] #### MARCUS WilcoxIngresse [facility] [place] [address] UA WBC 5-10 0-5 Abnormal 12-03-2018 [facility] (76008) Comment: Performed By: #### [id number] #### MARCUS WilcoxIngresse [facility] [place] [address] Urobilinogen Qn (U) Negative Negative Normal 12-03-2018 [facility] (00 000) Comment: Performed By: #### [id number] #### MARCUS WilcoxIngresse [facility] [place] [address] u bhcg qlt on 12-03 HCG.beta subunit Qn Neg Neg m[IU]/mL Normal 12-03-2018 [facility] (00 000) Comment: Performed By: #### [id number] #### MARCUSShawn [place]And[place] [address] [place] [address] lipase level on 201 06-19-16 Lipase Lvl 38 9-82 Int._Unit/L Normal 12-03-2018 [facility] (50037) Comment: Performed By: #### [id number] #### MARCUSShawn WilcoxAnd[place] [address] [place] [place] [address] egfr on 2018-12-03 GFR/1.73 sq M predicted 56 mL/min/1.73 m2 Normal 0 12-03-2018 [facility] among non-blacks [facility] (01318) (S/P/Bld) [Vol rate/Area] Comment: Order Comment: Order added b y Discern Expert. Performed By: #### [id number] #### M[place]Shawn [place] [address] [place] [address] GFR/1.73 sq M predicted 46 mL/min/1.73 m2 Normal 0 12-03-2018 [facility] among non-blacks [facility] (71432) (S/P/Bld) [Vol rate/Area] Comment: Order Comment: Order added erma Aldana Expert. Performed By: #### [id number] #### MARCUS Rem[employer] [facility] [place] [address] ct abdomen/pelvis w/o contrast on 2018-12-03 CT Abdomen/Pelvis w/o Exam Date/Time: Normal [facility] Contrast 12/03/2018 00:08 EST [facility] Reason for Exam: Sys tem (08752) Pain Report STUDY: CT Abdomen/Pelvis w/o Contrast; 12/03/2018 12:08 am INDICATION: Pain. COMPARISON: 09/22/2018 ACCESSION NUMBER(S): [id number] ORDERING CLINICIAN: Heidy Lane TECHNIQUE: Axial noncontrast CT images of the abdomen and pelvis with coronal and sagittal reconstructed images. FINDINGS: No significant interval change. LOWER CHEST: Bibasilar atelectasis/scar. BONES: No acute osseous abnormality. ABDOMINAL WALL: Small fat co ntaining umbilical hernia. Injection granuloma left buttock. Soft tissue stranding right buttock likely represent injection si te. ABDOMEN: Lack of intravenous contrast limits evaluation of vessels and solid organs. LIVER: Within normal limits. BILE DUCTS: Normal caliber. GALLBLADDER: No calcified gallstones. No wall thickening. PANCREAS: Within normal limits. SPLEEN: Within normal limits. ADRENALS: Within normal limits. KIDNEYS, URETERS, URINARY BLADDER: Within normal limits. VESSELS: No aortic aneurysm. RETROPERITONEUM: No pathologically enlarged lymph nodes. PELVIS: REPRODUCTIVE ORGANS: No visu alized pelvic mass or significant free pelvic fluid. Intrauterine device. BOWEL: No dilated bowel. Normal appendix. Gastric band. Exam Date/Time: 12/03/2018 00:08 EST Report PERITONEUM: No ascites or free air, no fluid collection. IMPRESSION: No acute abdominal or pelvic process. FINAL REPORT Dictated: 12/03/2018 1:34 am Nicole Anderson MD Signed (Electronic Signature): 12/03/2018 1:34 am Signed by: Nicole Anderson MD Technologist: JACKSON cmp on 2018-12-03 Albumin [Mass/Vol] 3.6 3.4-5.0 gm/dL Normal 12-03-2018 [facility] (00 000) Comment: Performed By: #### [id number] #### MARCUS Rem[employer] [address] [place] [address] Albumin/Globulin [Mass 1.5 1.1-1.9 ratio Normal 019 [facility] Sys tem (70183) Comment: Performed By: #### [id number] #### MARCUSShawn WilcoxChem [address] [place] [address] Alk Phos 69 33-110 Int._Unit/L Normal 12-03-2018 [facility] (87101) Comment: Performed By: #### [id number] #### MARCUS RemChem [address] [place] [address] ALT [Catalytic 13 7-45 Int._Unit/L Normal 12-03-[address] [facility] (63348) Comment: Performed By: #### [id number] #### MARCUS Rem[employer] [address] [place] [address] Anion gap [Moles/Vol] 12 10-20 mEq/L Normal 12-03-19 19 [facility] (00 000) Comment: Performed By: #### [id number] #### MARCUS Rem[employer] [address] [place] [address] AST [Catalytic 19 9-39 Int._Unit/L Normal 12-03-[address] [facility] (82754) Comment: Performed By: #### [id number] #### MARUCS RemChem [address] [place] [address] Bili Total 0.35 0.00-1.20 mg/dL Normal 12-03-2018 [facility] (67951) Comment: Performed By: #### [id number] #### MARCUS [employer] [address] [place] [address] Calcium [Mass/Vol] 8.3 8.6-10.3 mg/dL Low 12-03-2018 [facility] (81405) Comment: Performed By: #### [id number] #### MARCUS [employer] [address] [place] [address] Chloride [Moles/Vol] 110 98-107 mEq/L High 9 [facility] (00 000) Comment: Performed By: #### [id number] #### MARCUS WilcoxIngresse [facility] [place] [address] CO2 [Moles/Vol] 22.0 21.0-32.0 mEq/L Normal 12-03-2018 [facility] (00 000) Comment: Performed By: #### [id number] #### M[place] [place] [address] Creatinine [Mass/Vol] 1.3 0.5-1.1 mg/dL High 12-03-19 [facility] (00 000) Comment: Performed By: #### [id number] #### MARCUS JeriIngresse [facility] [place] [address] Globulin (S) [Mass/Vol] 2.0 2.0-4.0 G/DL Normal 2018 [facility] (00 000) Comment: Performed By: #### [id number] #### MARCUSShawn WilcoxIngresse [address] [place] [address] Glucose [Mass/Vol] 133 70-99 mg/dL High 12-03-2018 [facility] (72888) Comment: Performed By: #### [id number] #### MARCUS WilcoxIngresse [address] [place] [address] Potassium [Moles/Vol] 4.2 3.5-5.3 mEq/L Normal 12-03-19 [facility] (00 000) Comment: Performed By: #### [id number] #### MARCUS JeriIngresse [address] [place] [address] Protein [Mass/Vol] 6.0 6.4-8.2 gm/dL Low 12-03-2018 [facility] (66973) Comment: Performed By: #### [id number] #### MARCUSShawn WilcoxIngresse [facility] [place] [address] Sodium [Moles/Vol] 140 136-145 mEq/L Normal 12-03-2018 [facility] (00 000) Comment: Performed By: #### [id number] #### MARCUS Snapt [address] [place] [address] Urea nitrogen [Mass/Vol] 9 6-23 mg/dL Normal 12-03 [facility] (00 000) Comment: Performed By: #### [id number] #### MARCUS WilcoxChem [address] [place] [address] Urea nitrogen/Creatinine 6.9 5.4-30.0 ratio Normal 12-03 [facility] [Mass ratio] Health System (18568) Comment: Performed By: #### [id number] #### MARCUSShawn WilcoxChem [address] [place] [address] cbc w/ auto diff on 2018-12-03 Erythrocyte distribution 12.9 11.5-14.5 % Normal 12-03 [facility] width (RBC) [Ratio] Health System (34408) Comment: Performed By: #### [id number] #### AMRCUSShawn Zelaya [facility] [place] [address] Hematocrit (Bld) [Volume 42.4 36.0-48.0 % Normal 12-03 [facility] fraction] Health Sys tem (37851) Comment: Performed By: #### [id number] #### MARCUS JeriChem [address] [place] [address] Hemoglobin (Bld) 14.1 12.0-16.0 G/DL Normal 12-03-2018 [facility] [Mass/Vol] Health Sy stem (94593) Comment: Performed By: #### [id number] #### MARCUS JeriFabian [address] [place] [address] MCH (RBC) [Entitic mass] 30.5 27.0-31.0 pg Normal 12-03 [facility] (00 000) Comment: Performed By: #### [id number] #### MARCUS RemIngresse [address] [place] [address] MCHC (RBC) [Mass/Vol] 33.3 33.0-37.0 G/DL Normal 12-03-19 19 [facility] (00 000) Comment: Performed By: #### [id number] #### MARCUS JeriChem [address] [place] [address] MCV (RBC) [Entitic vol] 91.5 78.0-100.0 fL Normal 12-03 [facility] Sys tem (55411) Comment: Performed By: #### [id number] #### MARCUS Zelaya [facility] [place] [address] Platelet mean volume (Bld) 7.2 7.4-11.0 fL Low [facility] [Entitic vol] System (40829) Comment: Performed By: #### [id number] #### MARCUS Zelaya [facility] [place] [address] Platelets (Bld) [#/Vol] 121 130-400 E3/mcL Low 2018 [facility] (00 000) Comment: Performed By: #### [id number] #### MARCUS [address] [address] RBC (Bld) [#/Vol] 4.64 3.90-5.40 E6/mcL Normal 12-03-2018 [facility] (00 000) Comment: Performed By: #### [id number] #### MARCUS [address] [address] WBC (Bld) [#/Vol] 4.5 3.6-11.0 E3/mcL Normal 12-03-2018 [facility] (00 000) Comment: Performed By: #### [id number] #### M[place] [place] [address] auto diff on 2018-0 16 Basophils (Bld) [#/Vol] 0.0 0.0-0.2 E3/mcL Normal 2018 [facility] Sys tem (86596) Comment: Order Comment: Order added b y Discern Expert. Performed By: #### [id number] #### MARC[address] [place] [address] Basophils/100 WBC (Bld) 0.6 0.0-2.0 % Normal 2018 [facility] (00 000) Comment: Order Comment: Order added b y Discern Expert. Performed By: #### [id number] #### MARC[address] [place] [address] Eos Absolute 0.1 0.0-0.7 E3/mcL Normal 12-03-2018 [facility] (74024) Comment: Order Comment: Order added erma lizama Discern Expert. Performed By: #### [id number] #### MARCUS Zelaya [address] [place] [address] Eosinophils/100 WBC (Bld) 2.6 0.0-11.0 % Normal 11-18 [facility] (00 000) Comment: Order Comment: Order added b y Discern Expert. Performed By: #### [id number] #### MARCUS WilcoxIngresse [address] [place] [address] Lymphocytes (Bld) [#/Vol] 1.2 1.2-3.4 E3/mcL Normal 11-18 [facility] tem (74798) Comment: Order Comment: Order added b y Discern Expert. Performed By: #### [id number] #### MARCUS [address] [address] Lymphocytes/100 WBC (Bld) 27.2 20.0-55.0 % Normal 11-18 [facility] (74866) Comment: Order Comment: Order added b y Discern Expert. Performed By: #### [id number] #### MARCUS WilcoxIngresse [address] [place] [address] [place] Absolute 0.3 0.0-0.7 E3/mcL Normal 12-03-2018 [facility] (79802) Comment: Order Comment: Order added b y Discern Expert. Performed By: #### [id number] #### MARCUS [address] [address] Monocytes/100 WBC (Bld) 7.7 0.0-10.0 % Normal 2018 [facility] (00 000) Comment: Order Comment: Order added b y Discern Expert. Performed By: #### [id number] #### MARCUS JeriIngresse [facility] [place] [address] Neutro Absolute 2.8 1.4-6.5 E3/mcL Normal 12-03-2018 [facility] (58895) Comment: Order Comment: Order added b y Discern Expert. Performed By: #### [id number] #### MARCUS [employer] [address] [place] [address] Neutro Auto 61.9 37.0-75.0 % Normal 12-03-2018 [facility] (19505) Comment: Order Comment: Order added b y Katya Expert. Performed By: #### [id number] #### MARCUS [employer] [address] [place] [address] ct head or brain w/ + w/o contrast on 2018-12-01 CT Head or Brain Exam Date/Time: Normal 019 [facility] w/ + w/o Contrast 12/01/2018 12:05 [facility] Reason for Exam: (00 000) ABN GAIT Report STUDY: CT Head or Brain w/ + w/o Contrast; 12/01/2018 12:05 pm INDICATION: ABN GAIT. COMPARISON: 04/29/2016 ACCESSION NUMBER(S): [id number] ORDERING CLINICIAN: Ana Hodge TECHNIQUE: Axial images were obtained t hrough the head prior to and following the intravenous administration of 100 cc of Omnipaque 350. FINDINGS: There is mild atrophy. Ventr icles are unchanged in size and position. Amaral- white differentiation is maintained there are some vague areas of decreased attenuation in the white matter, nonspecific, but commonly as sociated with small vessel ischemic disease. There is no mass effect or midline shift. No acute intracranial hemorrhage is identified. No extra-axial fluid collections are seen. No int raparenchymal mass lesions are identified. Following the intravenous administration of contrast, no abnormal enhancement is observed. No enhancing mass lesions are identified. Bone windows dem onstrate no evidence of an acute calvarial fracture. There is mild mucosal thickening in the paranasal sinuses. IMPRESSION: No evidence of an acute intracranial process. FINAL REPORT Dictated: 12/01/2018 1:03 pm Andrey Sunshine MD Signed (Electronic Signature): 12/01/2018 1:03 pm Signed by: Andrey Sunshine MD Technologist: TRAVIS, rapid strep a screen on 2018-11-27 S. pyogenes Ag IA Final Report: Normal 11-27-19 19 [facility] (Unsp spec) [facility] screen negative (000 00) Comment: Performed By: #### [id number] #### [place] [address] lipid panel on 2018 Cholesterol in HDL mass 43 40-59 mg/dL Normal 2018 [facility] pitals (38997) Comment: Performed By: #### GLUX #### Unless otherwise noted, [facility] [address] [place] [address] CLIA: [id number] Architect Intern: Ismael vines M.D. Cholesterol in LDL mass 163 10-150 mg/dL High 2018 [facility] pitals (16057) Comment: Performed By: #### GLUX #### Unless otherwise noted, all testing performed by [facility] [address] [place] [address] CLIA: [id number] Architect Intern: Ismael vines M.D. Cholesterol in VLDL mass 41 5-40 mg/dL High 11-22 [facility] pitals (69164) Comment: Performed By: #### GLUX #### Unless otherwise noted, all testing performed by [facility] [address] [place] [address] CLIA: [id number] Architect Intern: Ismael vines M.D. Cholesterol mass conc 247 100-199 mg/dL High 11-22-[address] [facility] pitals (82818) Comment: Performed By: #### GLUX #### Unless otherwise noted, all testing performed by [facility] [address] [place] [address] CLIA: [id number] Architect Intern: Ismael vines M.D. Cholesterol.total/Cholesterol in HDL 5.7 3.2-5.0 [facility] h 11-22-2018 [facility] mass ratio [facility] (05517) Comment: Result Comment: Female Coron xavier Heart Disease Risk Factor (CHDRF): Average risk= 4.4 1/2 Average risk= 3.3 2 times Average risk= 7.1 Performed By: #### GLUX #### Unless otherwise noted, all testing performed by [facility] [address] [facility] [place] [address] CLIA: [id number] Architect Intern: Ismael vines M.D. Triglyceride mass conc 206 30-150 mg/dL High 019 [facility] (68876) Comment: Performed By: #### GLUX #### Unless otherwise noted, all testing performed by [facility] [address] [facility] [place] [address] CLIA: [id number] Architect Intern: Ismael vines M.D. No panel information on 2018-11-22 Cholesterol in HDL mass conc 43 40 - 59 mg/dL 0 11-22-2018 [facility] (33361) Cholesterol in LDL mass conc 163 10 - 150 mg/dL High 0 11-22-2018 [facility] (34459) Cholesterol in VLDL mass conc 41 5 - 40 mg/dL High 11-22-2018 [facility] (97944) Cholesterol mass conc 247 100 - 199 mg/dL High 11-22-19 19 [facility] (95487) Cholesterol.total/Cholesterol 5.7 OTH - OTH High 11-22-2018 [facility] (07239) in HDL mass ratio Comment: Female Coronary Heart Diseas e Risk Factor (CHDRF): Average risk= 4.4 1/2 Average risk= 3.3 2 times Average risk= 7.1 Interpretation and review Abnormal [facility] (53243) of laboratory results Triglyceride mass conc 206 30 - 150 mg/dL High 019 [facility] (29885) zzplt morph on 2018 Platelet morphology finding ENLARGED Normal [facility] Nom (Bld) System (00 000) Comment: Performed By: #### [id number] # ### MARCUS [employer] [address] [place] [address] Platelets (Bld) [#/Vol] DECREASED Normal 2018 [facility] (00 000) Comment: Performed By: #### [id number] # ### MARCUS [employer] [address] [place] [address] ua complete on 2018 Color (U) Straw Yellow Normal 11-17-2018 [facility] (03774) Comment: Performed By: #### [id number] # ### MARCUS [employer] [address] [place] [address] Glucose (U) [Mass/Vol] Negative Negative mg/dL Normal [address] [place], [place] [address]s tem (08618) Comment: Performed By: #### [id number] # ### MARCUS [employer] [address] [place] [address] Ketones Ql (U) Negative Negative Normal 11-17-[address] [facility] (05772) Comment: Performed By: #### [id number] # ### MARCUS [employer] [address] [place] [address] UA Blood Negative Negative Normal 11-17-2018 [facility] (63367) Comment: Performed By: #### [id number] # ### MARCUS [employer] [address] [place] [address] UA Clarity Clear Clear Normal 11-17-[address] [facility] (67140) Comment: Performed By: #### [id number] # ### MARCUS [employer] [address] [place] [address] UA Leuk Est Negative Negative Normal 11-17-2018 [facility] (57655) Comment: Performed By: #### [id number] # ### MARCUS [employer] [address] [place] [address] UA Nitrite Negative Negative Normal 11-17-[address] [facility] (58779) Comment: Performed By: #### [id number] # ### MARCUS Rem[employer] [address] [place] [address] UA pH 6.0 4.6-8.0 Normal 11-17-2018 [facility] (44386) Comment: Performed By: #### [id number] # ### MARCUS WilcoxChem [address] [place] [address] UA Protein Negative Negative Normal 11-17-[address] [facility] (78716) Comment: Performed By: #### [id number] # ### MARCUS WilcoxChem [facility] [place] [address] UA Spec Grav 1.009 1.003-1.030 Normal 11-17-[address] [facility] (83512) Comment: Performed By: #### [id number] # ### MARCUS WilcoxChem [address] [place] [address] UA Squam Epithelial 0-5 0-5 Normal 11-17-2018 [facility] (32767) Comment: Performed By: #### [id number] # ### MARCUS WilcoxIngresse [address] [place] [address] UA Urobilinogen Negative Normal 11-17-2018 [facility] (80297) Comment: Result Comment: Due to a man ufacturing issue, low positive urobilinogen results may be fasely positi ve. Correlate with urine bilirubin and additional clinical/laborato ry findings to assess the risk of hemolytic anemia or liver disease. If clinically indicated, repeat testing with an alternate method is availabl e by contacting the laboratory within 24 hours. Performed By: #### [id number] # ### MARCUSShawn WilcoxIngresse [address] [place] [address] UA WBC 0-5 0-5 Normal 11-17-2018 [facility] (85262) Comment: Performed By: #### [id number] # ### MARCUS Zelaya [address] [place] [address] Urobilinogen Qn (U) Negative Negative Normal 11-17-2018 [facility] (00 000) Comment: Performed By: #### [id number] # ### MARCUSShawn WilcoxIngresse [facility] [place] [address] u bhcg qlt on 11-17 HCG.beta subunit Qn Neg Neg m[IU]/mL Normal 11-17-2018 [facility] (00 000) Comment: Performed By: #### [id number] # ### [facility] Snapt [address] [place] [address] morph on 2018-11-17 RBC morphology finding Nom NORMAL Normal [facility] (d) System (00 000) Comment: Order Comment: Order Added erma y Katya Expert. Performed By: #### [id number] # ### MARCUS WilcoxChem [address] [place] [address] lipase level on 201 06-18-31 Lipase Lvl 48 9-82 Int._Unit/L Normal 11-17-2018 [facility] (11083) Comment: Performed By: #### [id number] # ### MARCUS WilcoxChem [address] [place] [address] hep func panel on Albumin [Mass/Vol] 3.8 3.4-5.0 gm/dL Normal 11-17-2018 [facility] (00 000) Comment: Performed By: #### [id number] # ### MARCUS WilcoxChem [facility] [place] [address] Albumin/Globulin [Mass 1.8 1.1-1.9 ratio Normal [address] [place] [address] Health Sys tem (06765) Comment: Performed By: #### [id number] # ### MARCUS WilcoxChem [address] [place] [address] Alk Phos 59 33-110 Int._Unit/L Normal 11-17-2018 [facility] (46989) Comment: Performed By: #### [id number] # ### MARCUS WilcoxChem [address] [place] [address] ALT [Catalytic 18 7-45 Int._Unit/L Normal 11-17-2018 [facility] activity/Vol] [facility] (16321) Comment: Performed By: #### [id number] # ### MARCUS RemChem [address] [place] [address] AST [Catalytic 28 9-39 Int._Unit/L Normal 11-17-2018 [facility] activity/Vol] [facility] (67015) Comment: Performed By: #### [id number] # ### MARCUS Rem[employer] [address] [place] [address] Bili Direct 0.07 0.00-0.30 mg/dL Normal 11-17-2018 [facility] (92362) Comment: Performed By: #### [id number] # ### MARCUS WilcoxIngresse [facility] [place] [address] Bili Indirect 0.38 mg/dL Normal 11-17-2018 [facility] (32535) Comment: Result Comment: No establish ed ranges available for the indirect bilirubin Performed By: #### [id number] # ### MARCUS [address] [place] [address] Bili Total 0.45 0.00-1.20 mg/dL Normal 11-17-[address] [facility] (98219) Comment: Performed By: #### [id number] # ### MARCUS [address] [address] Globulin (S) [Mass/Vol] 2.0 2.0-4.0 G/DL Normal 2018 [facility] (00 000) Comment: Performed By: #### [id number] # ### MARCUSShawn Wilcox[address] [address] Protein [Mass/Vol] 5.9 6.4-8.2 gm/dL Low 11-17-2018 [facility] (62929) Comment: Performed By: #### [id number] # ### MARCUS [address] [address] egfr on 2018-11-17 GFR/1.73 sq M predicted 56 mL/min/1.73 m2 Normal 0 11-17-2018 [facility] among non-blacks [facility] (26658) (S/P/Bld) [Vol rate/Area] Comment: Order Comment: Order added b y Discern Expert. Performed By: #### [id number] # ### MARCUS WilcoxIngresse [facility] [place] [address] GFR/1.73 sq M predicted 46 mL/min/1.73 m2 Normal 0 11-17-2018 [facility] among non-blacks [facility] (03863) (S/P/Bld) [Vol rate/Area] Comment: Order Comment: Order added b y Discern Expert. Performed By: #### [id number] # ### MARCUSShawn Wilcox[address] [address] cbc w/ auto diff on 2018-11-17 Erythrocyte distribution 13.2 11.5-14.5 % Normal 11-17 [facility] width (RBC) [Ratio] Health System (71874) Comment: Performed By: #### [id number] # ### MARCUS WilcoxChem [address] [place] [address] Hematocrit (Bld) [Volume 41.0 36.0-48.0 % Normal 11-17 [facility] Sys tem (10624) Comment: Performed By: #### [id number] # ### MARCUS RemChem [facility] [place] [address] Hemoglobin (Bld) 13.8 12.0-16.0 G/DL Normal 11-17-2018 [facility] [Mass/Vol] [facility] Sy stem (69970) Comment: Performed By: #### [id number] # ### MARCUS WilcoxIngresse [facility] [place] [address] MCH (RBC) [Entitic mass] 30.9 27.0-31.0 pg Normal 11-17 [facility] (00 000) Comment: Performed By: #### [id number] # ### MARCUS RemIngresse [facility] [place] [address] MCHC (RBC) [Mass/Vol] 33.6 33.0-37.0 G/DL Normal 11-17-19 19 [facility] (00 000) Comment: Performed By: #### [id number] # ### [facility] [place] [address] [place] [address] MCV (RBC) [Entitic vol] 91.9 78.0-100.0 fL Normal 11-17 [facility] Sys tem (28112) Comment: Performed By: #### [id number] # ### MARCUS RemIngresse [address] [place] [address] Platelet mean volume 7.6 7.4-11.0 fL Normal 9 [facility] (Bld) [Entitic vol] System (80769) Comment: Performed By: #### [id number] # ### [facility] RemChem [facility] [place] [address] Platelets (Bld) [#/Vol] 82 130-400 E3/mcL Low 2018 [facility] () Comment: Performed By: #### [id number] # ### MARCUSShawn WilcoxChem [address] [place] [address] RBC (Bld) [#/Vol] 4.46 3.90-5.40 E6/mcL Normal 11-17-2018 [facility] () Comment: Performed By: #### [id number] # ### MARCUSShawn WilcoxChem [facility] [place] [address] WBC (Bld) [#/Vol] 4.2 3.6-11.0 E3/mcL Normal 11-17-2018 [facility] () Comment: Performed By: #### [id number] # ### MARCUSShawn WilcoxChem [address] [place] [address] bmp on 2018-11-17 Anion gap [Moles/Vol] 11 10-20 mEq/L Normal 11-17-19 [facility] () Comment: Performed By: #### [id number] # ### MARCUS JeriChem [facility] [place] [address] Calcium [Mass/Vol] 8.7 8.6-10.3 mg/dL Normal 11-17-2018 [facility] () Comment: Performed By: #### [id number] # ### MARCUS [employer] [address] [place] [address] Chloride [Moles/Vol] 108 98-107 mEq/L High 9 [facility] () Comment: Performed By: #### [id number] # ### MARCUS Rem[employer] [address] [place] [address] CO2 [Moles/Vol] 21.0 21.0-32.0 mEq/L Normal 11-17-2018 [facility] () Comment: Performed By: #### [id number] # ### MARCUS RemChem [address] [place] [address] Creatinine [Mass/Vol] 1.2 0.5-1.1 mg/dL High 11-17-19 [facility] ( 000) Comment: Performed By: #### [id number] # ### MARCUS Zelaya [address] [place] [address] Glucose [Mass/Vol] 103 70-99 mg/dL High 11-17-2018 [facility] (95380) Comment: Performed By: #### [id number] # ### MARCUS Zelaya [facility] [place] [address] Potassium [Moles/Vol] 3.7 3.5-5.3 mEq/L Normal 11-17-19 19 [facility] (00 000) Comment: Performed By: #### [id number] # ### MARCUS Zelaya [facility] [place] [address] Sodium [Moles/Vol] 136 136-145 mEq/L Normal 11-17-2018 [facility] (00 000) Comment: Performed By: #### [id number] # ### MARCUS WilcoxIngresse [address] [place] [address] Urea nitrogen [Mass/Vol] 15 6-23 mg/dL Normal 11-17 [facility] (00 000) Comment: Performed By: #### [id number] # ### MARCUS Zelaya [address] [place] [address] Urea nitrogen/Creatinine 12.5 5.4-30.0 ratio Normal 11-17 [facility] [Mass ratio] [facility] (42403) Comment: Performed By: #### [id number] # ### MARCUS Zelaya [address] [place] [address] auto diff on 11-17 Basophils (Bld) [#/Vol] 0.0 0.0-0.2 E3/mcL Normal 2018 [facility] (29120) Comment: Order Comment: Order Added b y Discern Expert. Performed By: #### [id number] # ### MARCUSShawn WilcoxIngresse [facility] [place] [address] Basophils/100 WBC (Bld) 0.3 0.0-2.0 % Normal 2018 [facility] (00 000) Comment: Order Comment: Order Added b y Discern Expert. Performed By: #### [id number] # ### MARCUS WilcoxIngresse [facility] [place] [address] Eos Absolute 0.1 0.0-0.7 E3/mcL Normal 11-17-2018 [facility] (50057) Comment: Order Comment: Order Added b y Discern Expert. Performed By: #### [id number] # ### MARCUSShawn Zelaya [address] [place] [address] Eosinophils/100 WBC (Bld) 2.4 0.0-11.0 % Normal 10-20 [facility] (00 000) Comment: Order Comment: Order Added b y Discern Expert. Performed By: #### [id number] # ### MARCUSShawn Zelaya [address] [place] [address] Lymphocytes (Bld) [#/Vol] 1.2 1.2-3.4 E3/mcL Normal 10-20 [facility] (41957) Comment: Order Comment: Order Added b y Discern Expert. Performed By: #### [id number] # ### MARCUS JeriFabian [address] [place] [address] Lymphocytes/100 WBC (Bld) 27.6 20.0-55.0 % Normal 10-20 [facility] (42267) Comment: Order Comment: Order Added b y Discern Expert. Performed By: #### [id number] # ### MARCUSShawn Zelaya [address] [place] [address] [place]orte Absolute 0.4 0.0-0.7 E3/mcL Normal 11-17-2018 [facility] (18788) Comment: Order Comment: Order Added b y Discern Expert. Performed By: #### [id number] # ### MARCUSShawn Zelaya [address] [place] [address] Monocytes/100 WBC (Bld) 8.8 0.0-10.0 % Normal 2018 [facility] (00 000) Comment: Order Comment: Order Added b y Discern Expert. Performed By: #### [id number] # ### MARCUSShawn WilcoxChem [address] [place] [address] Neutro Absolute 2.5 1.4-6.5 E3/mcL Normal 11-17-2018 [facility] (50384) Comment: Order Comment: Order Added b y Discern Expert. Performed By: #### [id number] # ### MARCUS RemChem [address] [place] [address] Neutro Auto 60.4 37.0-75.0 % Normal 11-17-2018 [facility] (96170) Comment: Order Comment: Order Added erma Aldana Expert. Performed By: #### [id number] # ### MARCUS [employer] [address] [place] [address] lab miscellaneous o n 2018-10-28 Status See Ref Lab Report Normal 10-28-2018 [facility] (33577) Comment: Performed By: #### [id number] # ### MARCUS RemHemo [address] [place] [address] zzplt morph on 2018 Platelet morphology finding NORMAL Normal [facility] (00 000) Comment: Performed By: #### [id number] # ### MARUCS JeriHemo [facility] [place] [address] Platelets (d) [#/Vol] DECREASED Normal 2018 [facility] (00 000) Comment: Performed By: #### [id number] # ### MARCUS RemHemo [address] [place] [address] valproic acid on 05-11-08 Valpro Acid Lvl 91 50-100 microgram/mL Normal 10-26-2018 [facility] (00 000) Comment: Performed By: #### [id number] # ### MARCUS JeriHemo [address] [place] [address] manual diff on 2018 Band form neutrophils/100 WBC 1 0-1 Normal 10-26-2018 [facility] (00 000) Comment: Order Comment: Order Added erma Aldana Expert. Performed By: #### [id number] # ### MARCUS RemHemo [address] [place] [address] Basophil Man 0 0-1 % Normal 10-26-2018 [facility] (05730) Comment: Order Comment: Order Added erma Aldana Expert. Performed By: #### [id number] # ### MARCUS RemHemo [address] [place] [address] Eosinophils/100 WBC (Bld) 3 0-5 % Normal 01-0 9-2019 [facility] (84586) Comment: Order Comment: Order Added erma y Discern Expert. Performed By: #### [id number] # ### MARCUS Kenyon[address] [address] Lymphocytes/100 WBC (Bld) 37 14-48 % Normal [facility] (00 000) Comment: Order Comment: Order Added b y Discern Expert. Performed By: #### [id number] # ### MARCUS Kostascorky [address] [place] [address] Monocyte Man 8 1-11 % Normal 10-26-2018 [facility] (65547) Comment: Order Comment: Order Added b y Discern Expert. Performed By: #### [id number] # ### MARCUS Kostascorky [address] [place] [address] RBC morphology finding Nom NORMAL Normal [facility] (00 000) Comment: Order Comment: Order Added b y Discern Expert. Performed By: #### [id number] # ### MARCUS Kostaso [address] [place] [address] Segs Man 51 37-75 % Normal 10-26-2018 [facility] (21077) Comment: Order Comment: Order Added erma y Discern Expert. Performed By: #### [id number] # ### MARCUS Kostas[address] [address] lab miscellaneous o n 2018-10-26 Test Name topamax Normal 10-26-2018 [facility] (85344) Comment: Performed By: #### [id number] # ### MARCUS Kostaso [address] [place] [address] egfr on 2018-10-26 GFR/1.73 sq M predicted 45 mL/min/1.73 m2 Normal 0 10-26-2018 [facility] among non-blacks [facility] (34788) (S/P/Bld) [Vol rate/Area] Comment: Order Comment: Order Added b y Discern Expert. Performed By: #### [id number] # ### MARCUS JeriAzuquao [address] [place] [address] GFR/1.73 sq M predicted 37 mL/min/1.73 m2 Normal 0 10-26-2018 [facility] among non-blacks [facility] (91640) (S/P/Bld) [Vol rate/Area] Comment: Order Comment: Order Added erma Aldana Expert. Performed By: #### [id number] # ### MARCUS WilcoxHemo [address] [place] [address] cmp on 2018-10-26 Albumin [Mass/Vol] 4.2 3.4-5.0 gm/dL Normal 10-26-2018 [facility] (00 000) Comment: Performed By: #### [id number] # ### MARCUS WilcoxHemo [address] [place] [address] Albumin/Globulin [Mass 1.6 1.1-1.9 ratio Normal [address] [place] [address] Health Sys tem (12607) Comment: Performed By: #### [id number] # ### MARCUS WilcoxHemo [address] [place] [address] Alk Phos 66 33-110 Int._Unit/L Normal 10-26-2018 [facility] (78468) Comment: Performed By: #### [id number] # ### MARCUS RemHemo [address] [place] [address] ALT [Catalytic 22 7-45 Int._Unit/L Normal 10-26-[address] [facility] (08250) Comment: Performed By: #### [id number] # ### MARCUS WilcoxHemo [address] [place] [address] Anion gap [Moles/Vol] 12 10-20 mEq/L Normal 10-26-19 19 [facility] (00 000) Comment: Performed By: #### [id number] # ### MARCUS RemHemo [address] [place] [address] AST [Catalytic 33 9-39 Int._Unit/L Normal 10-26-[address] [facility] (93298) Comment: Performed By: #### [id number] # ### MARCUS RemHemo [address] [place] [address] Bili Total 0.38 0.00-1.20 mg/dL Normal 10-26-[address] [facility] (82872) Comment: Performed By: #### [id number] # ### MARCUS JeriHemo [address] [place] [address] Calcium [Mass/Vol] 9.2 8.6-10.3 mg/dL Normal 10-26-2018 [facility] (00 000) Comment: Performed By: #### [id number] # ### MARCUS JeriHemo [address] [place] [address] Chloride [Moles/Vol] 110 98-107 mEq/L High [facility] (00 000) Comment: Performed By: #### [id number] # ### MARCUS RemHemo [facility] [place] [address] CO2 [Moles/Vol] 24.0 21.0-32.0 mEq/L Normal 10-26-2018 [facility] (00 000) Comment: Performed By: #### [id number] # ### MARCUS JeriHemo [address] [place] [address] Creatinine [Mass/Vol] 1.5 0.5-1.1 mg/dL High 10-26-19 [facility] (00 000) Comment: Performed By: #### [id number] # ### MARCUS JeriHemo [facility] [place] [address] Globulin (S) [Mass/Vol] 3.0 2.0-4.0 G/DL Normal 2018 [facility] (00 000) Comment: Performed By: #### [id number] # ### MARCUS RemHemo [address] [place] [address] Glucose [Mass/Vol] 97 70-99 mg/dL Normal 10-26-2018 [facility] (94240) Comment: Performed By: #### [id number] # ### MARCUS RemHemo [facility] [place] [address] Potassium [Moles/Vol] 4.9 3.5-5.3 mEq/L Normal 10-26-19 [facility] (00 000) Comment: Performed By: #### [id number] # ### MARCUS RemHemo [facility] [place] [address] Protein [Mass/Vol] 6.9 6.4-8.2 gm/dL Normal 10-26-2018 [facility] (00 000) Comment: Performed By: #### [id number] # ### MARCUS Kenyono [facility] [place] [address] Sodium [Moles/Vol] 141 136-145 mEq/L Normal 10-26-2018 [facility] (00 000) Comment: Performed By: #### [id number] # ### MARCUS JeriHemo [facility] [place] [address] Urea nitrogen [Mass/Vol] 17 6-23 mg/dL Normal 10-26 [facility] (00 000) Comment: Performed By: #### [id number] # ### MARCUS WilcoxHemo [facility] [place] [address] Urea nitrogen/Creatinine 11.3 5.4-30.0 ratio Normal 10-26 [facility] [Mass ratio] [facility] (89421) Comment: Performed By: #### [id number] # ### MARCUS JeriHemo [address] [place] [address] cbc w/ auto diff on 2018-10-26 Erythrocyte distribution 13.2 11.5-14.5 % Normal 10-26 [facility] width (RBC) [Ratio] Health [facility] (97277) Comment: Performed By: #### [id number] # ### MARCUS Kostaso [facility] [place] [address] Hematocrit (Bld) [Volume 44.4 36.0-48.0 % Normal 10-26 [facility] fraction] [facility] (43842) Comment: Performed By: #### [id number] # ### MARCUS JeriHemo [facility]5 [place] [address] Hemoglobin (Bld) 14.8 12.0-16.0 G/DL Normal 10-26-2018 [facility] [Mass/Vol] [facility] (15349) Comment: Performed By: #### [id number] # ### MARCUS JeriHemo [facility] [place] [address] MCH (RBC) [Entitic mass] 30.7 27.0-31.0 pg Normal 10-26 [facility] (00 000) Comment: Performed By: #### [id number] # ### MARCUS WilcoxHemo [facility] [place] [address] MCHC (RBC) [Mass/Vol] 33.3 33.0-37.0 G/DL Normal 10-26-19 19 [facility] (00 000) Comment: Performed By: #### [id number] # ### [facility] [place] [address] MCV (RBC) [Entitic vol] 92.1 78.0-100.0 fL Normal 10-26 [facility] (14272) Comment: Performed By: #### [id number] # ### MARCUSShawn Kenyon[address] [address] Platelet mean volume 7.8 7.4-11.0 fL Normal 9 [facility] (Bld) [Entitic vol] System (24816) Comment: Performed By: #### [id number] # ### MARCUSShawn WilcoxHemo [address] [place] [address] Platelets (Bld) [#/Vol] 93 130-400 E3/mcL Low 2018 [facility] (00 000) Comment: Performed By: #### [id number] # ### MARCUSShawn Kenyono [address] [place] [address] RBC (Bld) [#/Vol] 4.82 3.90-5.40 E6/mcL Normal 10-26-2018 [facility] (00 000) Comment: Performed By: #### [id number] # ### MARCUSShawn WilcoxHemo [address] [place] [address] WBC (Bld) [#/Vol] 4.7 3.6-11.0 E3/mcL Normal 10-26-2018 [facility] (00 000) Comment: Performed By: #### [id number] # ### MARCUSShawn WilcoxHemo [facility] [place] [address] xr spine lumbosacral 2 or 3 views on 2018-10-14 XR Spine Lumbosacral Exam Date/Time: Normal [facility] 2 or 3 Views 10/14/2018 15:28 [facility] Reason for Exam: (00 000) Back pain Report STUDY: XR Spine Lumbosacral 2 or 3 Views; 10/14/2018 3:28 pm INDICATION: Back pain. COMPARISON: 01/21/2017 ACCESSION NUMBER(S): [id number] ORDERING CLINICIAN: Moi De La Cruz FINDINGS: 3 views of the lumbar spine including AP, lateral and lateral cone-down views were obtained. There is no acute fracture i dentified. The vertebral bodies are well aligned without evidence of subluxation. Mild disc sp suzette narrowing and tiny marginal osteophytes are present at the L2-3 level. Mild facet degenerative changes are seen in the lower lumbar spine. IMPRESSION: 1. No evidence of acute fracture. FINAL REPORT Dictated: 10/14/2018 3:39 pm Bhupinder Berger MD Signed (Electronic Signature): 10/14/2018 3:39 pm Signed by: Bhupinder Berger MD Technologist: [facility] ua complete on 2017 Color (U) Yellow Yellow Normal 10-14-2018 [facility] (28527) Comment: Performed By: #### [id number] # ### MARCUS RemHemo [address] [place] [address] Glucose (U) [Mass/Vol] Negative Negative mg/dL Normal 018 [facility] (23605) Comment: Performed By: #### [id number] # ### MARCUS RemHemo [address] [place] [address] Ketones Ql (U) Negative Negative Normal 10-14-[address] [facility] (23386) Comment: Performed By: #### [id number] # ### MARCUS RemHemo [address] [place] [address] RBC (U) [#/Vol] 10-20 0-3 Abnormal 10-14-2018 [facility] (34053) Comment: Performed By: #### [id number] # ### MARCUS RemHemo [address] [place] [address] UA Blood Negative Negative Normal 10-14-2018 [facility] (40953) Comment: Performed By: #### [id number] # ### MARCUS RemHemo [address] [place] [address] UA Clarity Cloudy Clear Abnormal 10-14-[address] [facility] (06036) Comment: Performed By: #### [id number] # ### MARCUS RemHemo [address] [place] [address] UA Hyal Cast 5-10 0-2 Abnormal 10-14-2018 [facility] (79669) Comment: Performed By: #### [id number] # ### MARCUS RemHemo [address] [place] [address] UA Leuk Est 3+ Negative Abnormal 10-14-2018 [facility] (31516) Comment: Performed By: #### [id number] # ### MARCUS RemHemo [address] [place] [address] UA Mucous Trace Trace Abnormal 10-14-2018 [facility] (54629) Comment: Performed By: #### [id number] # ### MARCUS RemHemo [address] [place] [id number] UA Nitrite Negative Negative Normal 10-14-[address] [facility] (35300) Comment: Performed By: #### [id number] # ### MARCUS RemHemo [address] [place] [address] UA pH 7.0 4.6-8.0 Normal 10-14-2018 [facility] (71703) Comment: Performed By: #### [id number] # ### MARCUS RemHemo [address] [place] [address] UA Protein Negative Negative Normal 10-14-[address] [facility] (19333) Comment: Performed By: #### [id number] # ### MARCUS RemHemo [address] [place] [address] UA Spec Grav 1.016 1.003-1.030 Normal 10-14-[address] [facility] (91186) Comment: Performed By: #### [id number] # ### MARCUS RemHemo [address] [place] [address] UA Squam Epithelial >30 0-5 Abnormal 10-14-2018 [facility] (35640) Comment: Performed By: #### [id number] # ### MARCUS RemHemo [address] [place] [address] UA Urobilinogen Negative Normal 10-14-2018 [facility] (34943) Comment: Result Comment: Due to a man ufacturing issue, low positive urobilinogen results may be fasely positi ve. Correlate with urine bilirubin and additional clinical/laborato ry findings to assess the risk of hemolytic anemia or liver disease. If clinically indicated, repeat testing with an alternate method is availabl e by contacting the laboratory within 24 hours. Performed By: #### [id number] # ### MARCUS RemHemo [address] [place] [address] UA WBC 10-20 0-5 Abnormal 10-14-2018 [facility] (12397) Comment: Performed By: #### [id number] # ### MARCUS WilcoxHemo [address] [place] [address] Urobilinogen Qn (U) Negative Negative Normal 10-14-2018 [facility] (00 000) Comment: Performed By: #### [id number] # ### MARCUS WilcxoHemo [address] [place] [address] xr chest ap portable on 2018-10-02 XR Chest AP Exam Date/Time: Normal 10-02-2018 [facility] Portable 10/02/2018 11:20 [facility] Reason for Exam: (00 000) Chest pain Report STUDY: XR Chest AP Portable; 10/02/2018 11:20 am INDICATION: Chest pain. COMPARISON: 12/15/2017 ACCESSION NUMBER(S): [id number] ORDERING CLINICIAN: Moi De La Cruz FINDINGS: Surgical changes associated with prior hiatus hernia repair unchanged from prior. CARDIOMEDIASTINAL SILHOUETTE: Cardiomediastinal silhouette is normal in size and configura tion. LUNGS: Lungs are clear. ABDOMEN: No remarkable upper abdominal findings. BONES: No acute osseous changes. IMPRESSION: 1. No evidence of acute cardiopulmonary process. FINAL REPORT Dictated: 10/02/2018 11:23 am Wilder Beth MD Signed (Electronic Signature): 10/02/2018 11:23 am Signed by: Wilder Beth MD Technologist: HLR troponin-i on 10-02 Troponin I.cardiac <.01 .00-.03 ng/mL Normal 10-02-2018 [facility] [Mass/Vol] [facility] (24038) Comment: Performed By: #### [id number] # ### [facility] [place] [address] Troponin I.cardiac .01 .00-.03 ng/mL Normal 10-02-2018 [facility] [Mass/Vol] [facility] (19677) Comment: Performed By: #### [id number] #### MARCUS Kenyono [facility] [place] [address] ptt on 2018-10-02 aPTT Coag (Bld) 28.3 23.2-36.4 second(s) Normal 10-02-2018 [facility] [Time] [facility] tem (16866) Comment: Performed By: #### [id number] #### MARCUS Wilcox[address] [address] ptt control ratio o n 2018-10-02 PTT Ratio 0.9 0.8-1.2 ratio Normal 10-02-2018 [facility] (95294) Comment: Order Comment: Order added erma Aldana Expert. Performed By: #### [id number] #### MARCUS Kenyon[address] [address] pt on 2018-10-02 INR Coag (PPP) [Relative 1.1 1.0-1.2 {INR} Normal 10-02 [facility] tem (24950) Comment: Result Comment: INR Recommen ded Therapeuptic Ranges: Prophylaxis/treatment of DVT and PE?2.0-3.0 Prevention of systemic embol ism?.2.0-3.0 Mechanical prosthetic values ?2.5-3.5 CRITICAL VALUES?.>4.0 Performed By: #### [id number] #### MARCUS WilcoxAzuquao [facility] [place] [address] PT Coag (PPP) [Time] 13.2 11.6-14.6 second(s) Normal 8 [facility] (52339) Comment: Performed By: #### [id number] #### MARCUS Kenyoncorky [address] [place] [address] manual diff on 2017 Anisocytosis Ql (Bld) 2+ Normal 10-02-20 18 [facility] (42095) Comment: Order Comment: Order Added b y Discern Expert. Performed By: #### [id number] #### MARCUS JeriKarlo [facility] [place] [address] Band form neutrophils/100 WBC 6 0-1 High 10-02-2018 [facility] (00 000) Comment: Order Comment: Order Added b y Discern Expert. Performed By: #### [id number] #### MARCUS JeriHemo [address] [place] [address] Basophil Man 0 0-1 % Normal 10-02-2018 [facility] (38558) Comment: Order Comment: Order Added b y Discern Expert. Performed By: #### [id number] #### MARCUS WilcoxHemo [address] [place] [address] Eosinophils/100 WBC (Bld) 1 0-5 % Normal 09-17 [facility] (35433) Comment: Order Comment: Order Added b y Discern Expert. Performed By: #### [id number] #### MARCUS WilcoxHemo [address] [place] [address] Lymphocytes/100 WBC (Bld) 37 14-48 % Normal 09-17 [facility] (00 000) Comment: Order Comment: Order Added b y Discern Expert. Performed By: #### [id number] #### MARCUS JeriHemo [facility] [place] [address] Lee Man 3 0-0 % High 10-02-2018 [facility] (98485) Comment: Order Comment: Order Added b y Discern Expert. Performed By: #### [id number] #### MARCUS JeriHemo [facility] [place] [address] Monocyte Man 10 1-11 % Normal 10-02-2018 [facility] (81509) Comment: Order Comment: Order Added b y Discern Expert. Performed By: #### [id number] #### MARCUS Kenyono [facility] [place] [id number] Poikilocytosis 1+ Normal 10-02-[address] [facility] (34197) Comment: Order Comment: Order Added b y Discern Expert. Performed By: #### [id number] #### MARCUS JeriHemo [address] [place], [place] [address] Polychromasia 1+ Normal 10-02-2018 [facility] (80584) Comment: Order Comment: Order Added b y Discern Expert. Performed By: #### [id number] #### MARCUS Kostaso [address] [place], [place] [address] RBC morphology finding SEE MORPHOLOGY Normal [facility] (95439) Comment: Order Comment: Order Added b y Discern Expert. Performed By: #### [id number] #### MARCUS JeriHemo [address] [place], [place] [address] Segs Man 43 37-75 % Normal 10-02-2018 [facility] (57824) Comment: Order Comment: Order Added b y Discern Expert. Performed By: #### [id number] #### MARCUS JeriAzuquao [address] [place], [place] [address] magnesium on 2017-10 Magnesium [Mass/Vol] 1.9 1.6-2.4 mg/dL Normal 10-02-201 8 [facility] (00 000) Comment: Performed By: #### [id number] #### MARCUS JeriHemo [address] [place], [place] [address] egfr on 2018-10-02 GFR/1.73 sq M predicted 44 mL/min/1.73 m2 Normal 1 12-03-2017 [facility] among non-blacks [facility] (04310) (S/P/Bld) [Vol rate/Area] Comment: Order Comment: Order added b y Discern Expert. Performed By: #### [id number] #### MARCUS JeriAzuquao [address] [place], [place] [address] GFR/1.73 sq M predicted 53 mL/min/1.73 m2 Normal 1 12-03-2017 [facility] among non-blacks [facility] (36831) (S/P/Bld) [Vol rate/Area] Comment: Order Comment: Order added b y Discern Expert. Performed By: #### [id number] #### MARCUS WilcoxHemo [facility] [place] [address] cbc w/ auto diff on 2018-10-02 Erythrocyte distribution 13.1 11.5-14.5 % Normal 10-02 [facility] width (RBC) [Ratio] [facility] System (40188) Comment: Performed By: #### [id number] #### MARCUSShawn WilcoxHemo [facility] [place] [address] Hematocrit (Bld) [Volume 40.9 36.0-48.0 % Normal 10-02 [facility] fraction] Health Sys tem (18075) Comment: Performed By: #### [id number] #### MARCUS WilcoxHemo [facility] [place] [address] Hemoglobin (Bld) 13.7 12.0-16.0 G/DL Normal 10-02-2018 [facility] [Mass/Vol] [facility] (85399) Comment: Performed By: #### [id number] #### MARCUS WilcoxHemo [facility] [place] [place] [address] MCH (RBC) [Entitic mass] 31.0 27.0-31.0 pg Normal 10-02 [facility] (00 000) Comment: Performed By: #### [id number] #### MARCUS RemHemo [facility] [place] [address] MCHC (RBC) [Mass/Vol] 33.7 33.0-37.0 G/DL Normal 10-02-20 18 [facility] (00 000) Comment: Performed By: #### [id number] #### MARCUS RemHemo [facility]5 [place] [address] MCV (RBC) [Entitic vol] 92.1 78.0-100.0 fL Normal 10-02 [facility] (42749) Comment: Performed By: #### [id number] #### MARCUSShawn WilcoxHemo [address] [place] [address] Platelet mean volume 8.4 7.4-11.0 fL Normal 8 [facility] (d) [Entitic vol] System (27288) Comment: Performed By: #### [id number] #### MARCUSShawn WilcoxHemo [address] [place] [address] Platelets (Bld) [#/Vol] 82 130-400 E3/mcL Low 2017 [facility] (00 000) Comment: Performed By: #### [id number] #### MARCUS JeriHemo [facility]5 [place] [address] RBC (Bld) [#/Vol] 4.44 3.90-5.40 E6/mcL Normal 10-02-2018 [facility] (00 000) Comment: Performed By: #### [id number] #### MARCUS JeriHemo [facility]5 [place] [address] WBC (Bld) [#/Vol] 5.3 3.6-11.0 E3/mcL Normal 10-02-2018 [facility] (00 000) Comment: Performed By: #### [id number] #### MARCUS JeriHemo [address] [place] [address] bmp on 2018-10-02 Anion gap [Moles/Vol] 9 10-20 mEq/L Low 10-02-20 18 [facility] (63871) Comment: Performed By: #### [id number] #### MARCUS JeriHemo [address] [place] [address] Calcium [Mass/Vol] 8.4 8.6-10.3 mg/dL Low 10-02-2018 [facility] (28098) Comment: Performed By: #### [id number] #### MARCUS JeriHemo [address] [place] [address] Chloride [Moles/Vol] 111 98-107 mEq/L High 8 [facility] (00 000) Comment: Performed By: #### [id number] #### MARCUS RemHemo [address] [place] [address] CO2 [Moles/Vol] 22.0 21.0-32.0 mEq/L Normal 10-02-2018 [facility] (00 000) Comment: Performed By: #### [id number] #### MARCUS RemHemo [address] [place] [address] Creatinine [Mass/Vol] 1.3 0.5-1.1 mg/dL High 10-02-20 [facility] (00 000) Comment: Performed By: #### [id number] #### MARCUS RemHemo [address] [place] [address] Glucose [Mass/Vol] 88 70-99 mg/dL Normal 10-02-2018 [facility] (30433) Comment: Performed By: #### [id number] #### MARCUS RemHemo [address] [place] [address] Potassium [Moles/Vol] 4.2 3.5-5.3 mEq/L Normal 10-02-20 [facility] (00 000) Comment: Performed By: #### [id number] #### MARCUS RemHemo [facility] [place] [address] Sodium [Moles/Vol] 138 136-145 mEq/L Normal 10-02-2018 [facility] (00 000) Comment: Performed By: #### [id number] #### MARCUS RemHemo [address] [place] [address] Urea nitrogen [Mass/Vol] 16 6-23 mg/dL Normal 10-02 [facility] (00 000) Comment: Performed By: #### [id number] #### MARCUS RemHemo [address] [place] [address] Urea nitrogen/Creatinine 12.3 5.4-30.0 ratio Normal 10-02 [facility] ([address]109[facility] Comment: Performed By: #### [id number] #### MARCUS RemHemo [address] [place] [address] .manual abs on 2017 Basophil Abs Man 0.0 0.0-0.2 10x3/ Normal 10-02-2018 [facility] (69194) Comment: Order Comment: Order Added erma lizama Discern Expert. Performed By: #### [id number] #### MARCUS Kenyono [address] [place] [address] Eos Abs Man 0.1 0.0-0.5 10x3/ Normal 10-02-2018 [facility] (82326) Comment: Order Comment: Order Added erma y Discern Expert. Performed By: #### [id number] #### MARCUS Kenyoncorky [facility]5 [place] [address] Lymph Abs Man 2.0 1.2-3.4 10x3/ Normal 10-02-2018 [facility] (76723) Comment: Order Comment: Order Added erma y Discern Expert. Performed By: #### [id number] #### MARCUS Kostascorky [address] [place] [address] Laporte Abs Man 0.5 0.0-0.7 10x3/ Normal 10-02-2018 [facility] (51904) Comment: Order Comment: Order Added erma y Discern Expert. Performed By: #### [id number] #### MARCUS Kenyono [facility]5 [place] [address] Segs Abs Man 2.3 1.4-6.5 10x3/ Normal 10-02-2018 [facility] (23426) Comment: Order Comment: Order Added erma lizama Discern Expert. Performed By: #### [id number] #### MARCUSShawn Kenyoncorky [address] [place] [address] c urine on C Urine Final Report: Moderate Normal [facility] Normal skin joe isolated System (48698) Comment: Performed By: #### [id number] #### MARCUSShawn Kenyono [facility]5 [place] [address] ua complete on 2017 Color (U) Yellow Yellow Normal 09-22-2018 [facility] (39215) Comment: Performed By: #### [id number] #### [facility] [place] [address] Glucose (U) [Mass/Vol] Negative Negative mg/dL Normal 018 [facility] (24456) Comment: Performed By: #### [id number] #### MARCUS RemHemo [address] [place] [address] Ketones Ql (U) Negative Negative Normal 09-22-[address] [facility] (58910) Comment: Performed By: #### [id number] #### MARCUS RemHemo [address] [place] [address] RBC (U) [#/Vol] 20-50 0-3 Abnormal 09-22-2018 [facility] (13338) Comment: Performed By: #### [id number] #### MARCUS RemHemo [address] [place] [address] UA Blood Negative Negative Normal 09-22-2018 [facility] (84479) Comment: Performed By: #### [id number] #### MARCUS RemHemo [address] [place] [address] UA Bacteria 2+ None /HPF Abnormal 09-22-2018 [facility] (64867) Comment: Performed By: #### [id number] #### MARCUS RemHemo [address] [place] [address] UA Clarity Cloudy Clear Abnormal 09-22-[address] [facility] (81237) Comment: Performed By: #### [id number] #### MARCUS RemHemo [address] [place] [address] UA Leuk Est 3+ Negative Abnormal 09-22-2018 [facility] (25085) Comment: Performed By: #### [id number] #### MARCUS RemHemo [address] [place] [address] UA Mucous Trace Trace Abnormal 09-22-2018 [facility] (57164) Comment: Performed By: #### [id number] #### MARCUS RemHemo [address] [place] [address] UA Nitrite Negative Negative Normal 09-22-[address] [facility] (34690) Comment: Performed By: #### [id number] #### MARCUS RemHemo [address] [place] [address] UA pH 7.0 4.6-8.0 Normal 09-22-2018 [facility] (59409) Comment: Performed By: #### [id number] #### MARCUS WilcoxHemo [address] [place] [address] UA Protein Negative Negative Normal 09-22-[address] [facility] (65933) Comment: Performed By: #### [id number] #### MARCUS WilcoxHemo [address] [place] [address] UA Spec Grav 1.014 1.003-1.030 Normal 09-22-[address] [facility] (05499) Comment: Performed By: #### [id number] #### MARCUS WilcoxHemo [facility] [place] [address] UA Squam Epithelial >30 0-5 Abnormal 09-22-2018 [facility] (75646) Comment: Performed By: #### [id number] #### MARCUS WilcoxHemo [facility]5 [place] [address] UA Urobilinogen Negative Normal 09-22-2018 [facility] (24995) Comment: Result Comment: Due to a man ufacturing issue, low positive urobilinogen results may be fasely positi ve. Correlate with urine bilirubin and additional clinical/laborato ry findings to assess the risk of hemolytic anemia or liver disease. If clinically indicated, repeat testing with an alternate method is availabl e by contacting the laboratory within 24 hours. Performed By: #### [id number] #### MARCUS WilcoxHemo [address] [place] [address] UA WBC 20-50 0-5 Abnormal 09-22-2018 [facility] (07376) Comment: Performed By: #### [id number] #### MARCUS WilcoxHemo [facility]5 [place] [address] Urobilinogen Qn (U) Negative Negative Normal 09-22-2018 [facility] (00 000) Comment: Performed By: #### [id number] #### MARCUS WilcoxHemo [facility]5 [place] [address] u bhcg qlt on 09-22 HCG.beta subunit Qn Neg Neg m[IU]/mL Normal 09-22-2018 [facility] (00 000) Comment: Performed By: #### [id number] #### MARCUS Kenyono [address] [place] [address] lipase level on 201 05-29-06 Lipase Lvl 44 9-82 Int._Unit/L Normal 09-22-2018 [facility] (17836) Comment: Performed By: #### [id number] #### MARCUS Kenyono [address] [place] [address] hep func panel on 2 Albumin [Mass/Vol] 4.7 3.4-5.0 gm/dL Normal 09-22-2018 [facility] (00 000) Comment: Performed By: #### [id number] #### MARCUS Kenyono [facility]5 [place] [address] Albumin/Globulin [Mass 1.7 1.1-1.9 ratio Normal [address] [place] [address] Sys tem (14918) Comment: Performed By: #### [id number] #### MARCUS Kenyono [facility]5 [place] [address] Alk Phos 67 33-110 Int._Unit/L Normal 09-22-2018 [facility] (04734) Comment: Performed By: #### [id number] #### MARCUS Kenyono [facility]5 [place] [address] ALT [Catalytic 19 7-45 Int._Unit/L Normal 09-22-[address] [facility] (72179) Comment: Performed By: #### [id number] #### MARCUS WilcoxHemo [facility]5 [place] [address] AST [Catalytic 31 9-39 Int._Unit/L Normal 09-22-2018 [facility] activity/Vol] [facility] (75032) Comment: Performed By: #### [id number] #### MARCUSShawn WilcoxHemo [address] [place] [address] Bili Direct 0.12 0.00-0.30 mg/dL Normal 09-22-2018 [facility] (86766) Comment: Performed By: #### [id number] #### MARCUSShawn WilcoxHemo [address] [place] [address] Bili Indirect 0.53 mg/dL Normal 09-22-2018 [facility] (37038) Comment: Result Comment: No establish ed ranges available for the indirect bilirubin Performed By: #### [id number] #### MARCUS [place] [id number] Bili Total 0.65 0.00-1.20 mg/dL Normal 09-22-[address] [facility] (77563) Comment: Performed By: #### [id number] #### MARCUS [place] [id number] Globulin (S) [Mass/Vol] 3.0 2.0-4.0 G/DL Normal 2017 [facility] (00 000) Comment: Performed By: #### [id number] #### MARCUS [place] [id number] Protein [Mass/Vol] 7.4 6.4-8.2 gm/dL Normal 09-22-2018 [facility] (00 000) Comment: Performed By: #### [id number] #### MARCUS [place] [id number] egfr on 2018-09-22 GFR/1.73 sq M predicted 51 mL/min/1.73 m2 Normal 1 11-23-2017 [facility] among non-blacks [facility] (31830) (S/P/Bld) [Vol rate/Area] Comment: Order Comment: Order Added erma Aldana Expert. Performed By: #### [id number] #### MARCUS [place] [id number] GFR/1.73 sq M predicted 42 mL/min/1.73 m2 Normal 1 11-23-2017 [facility] among non-blacks [facility] (21438) (S/P/Bld) [Vol rate/Area] Comment: Order Comment: Order Added erma Aldana Expert. Performed By: #### [id number] #### MARCUS Wilcox[address] [address] [address] abdomen/pelvis w/o contrast on 2018-09-22 CT Abdomen/Pelvis w/o Exam Date/Time: Normal [facility] Contrast 09/22/2018 18:11 [facility] Reason for Exam: Sys tem (72022) Abdominal Pain;Other (please specify) Report STUDY: CT Abdomen/Pelvis w/o Contrast; 09/22/2018 6:11 pm INDICATION: Other (please specify). COMPARISON: CT dated 05/19/2018 ACCESSION NUMBER(S): [id number] ORDERING CLINICIAN: Shilpa Douglas TECHNIQUE: CT of the abdomen pelvis was performed without intravenous contrast. Multiplanar reconstruction was performed. FINDINGS: LOWER CHEST: Atelectatic changes or scarring in lung bases. BONES: No acute osseous abnormality. ABDOMINAL WALL: Within normal limits. ABDOMEN: Evaluation of solid organs is limited due to lack of intrave nous contrast. LIVER: Within normal limits. BILE DUCTS: Normal caliber. GALLBLADDER: No calcified gallstones. No wall thickening. PANCREAS: Within normal limits. SPLEEN: Within normal limits. There is splenule anterior to the spleen. ADRENALS: Within normal limits. KIDNEYS and URETERS: Within normal limits. VESSELS: No aortic aneurysm. RETROPERITONEUM: No pathologically enlarged retroperitoneal lymph nodes. PELVIS: REPRODUCTIVE ORGANS: There i s an IUD in place. Presumed functional cyst projecting in the left ovary. BLADDER: Within normal limits. BOWEL: There is a gastric ba nd in the proximal stomach. Stomach is unremarkable. No dilated bowel. Normal appendix. PERITONEUM: No ascites or free air, no fluid collection. Exam Date/Time: 09/22/2018 18:11 EST Report IMPRESSION: 1. No CT evidence of acute process in the abdomen and pelvis . 2. No renal or ureteral stone. Normal appendix. FINAL REPORT Dictated: 09/22/2018 6:42 pm Devin Zimmer MD Signed (Electronic Signature): 09/22/2018 6:42 pm Signed by: Devin Zimmer MD Technologist: AM, cbc w/ auto diff on 2018-09-22 Erythrocyte distribution 13.6 11.5-14.5 % Normal 09-22 [facility] (RBC) [Ratio] [facility] (18617) Comment: Performed By: #### [id number] # ### MARCUS WilcoxHemcorky [address] [place] [address] Hematocrit (Bld) [Volume 50.0 36.0-48.0 % High 09-22 [facility]] System ( 000) Comment: Performed By: #### [id number] # ### MARCUS WilcoxHemo [address] [place] [address] Hemoglobin (Bld) 16.9 12.0-16.0 G/DL High 09-22-2018 [facility] [Mass/Vol] [facility] (49381) Comment: Performed By: #### [id number] # ### MARCUSShawn WilcoxHemo [facility] [place] [address] MCH (RBC) [Entitic mass] 31.0 27.0-31.0 pg Normal 09-22 [facility] ( 000) Comment: Performed By: #### [id number] # ### MARCUSShawn WilcoxHemo [facility]5 [place] [address] MCHC (RBC) [Mass/Vol] 33.8 33.0-37.0 G/DL Normal 09-22-20 18 [facility] () Comment: Performed By: #### [id number] # ### MARCUSShawn WilcoxHemo [address] [place] [address] MCV (RBC) [Entitic vol] 91.7 78.0-100.0 fL Normal 09-22 [facility] (51367) Comment: Performed By: #### [id number] # ### MARCUSShawn WilcoxHemo [facility]5 [place] [address] Platelet mean volume 8.1 7.4-11.0 fL Normal 8 [facility] (Bld) [Entitic vol] System (15811) Comment: Performed By: #### [id number] # ### MARCUSShawn WilcoxHemo [facility] [place] [address] Platelets (Bld) [#/Vol] 123 130-400 E3/mcL Low 2017 [facility] () Comment: Performed By: #### [id number] # ### MARCUSShawn WilcoxHemo [facility]5 [place] [address] RBC (Bld) [#/Vol] 5.45 3.90-5.40 E6/mcL High 09-22-2018 [facility] () Comment: Performed By: #### [id number] # ### MARCUS WilcoxHemo [address] [place] [address] WBC (Bld) [#/Vol] 6.6 3.6-11.0 E3/mcL Normal 09-22-2018 [facility] (00 000) Comment: Performed By: #### [id number] # ### MARCUS RemHemo [address] [place] [address] bmp on 2018-09-22 Anion gap [Moles/Vol] 12 10-20 mEq/L Normal 09-22-20 [facility] (00 000) Comment: Performed By: #### [id number] #### MARCUS WilcoxHemo [address] [place] [address] Calcium [Mass/Vol] 9.4 8.6-10.3 mg/dL Normal 09-22-2018 [facility] (00 000) Comment: Performed By: #### [id number] #### MARCUS WilcoxHemo [address] [place] [address] Chloride [Moles/Vol] 110 98-107 mEq/L High [facility] (00 000) Comment: Performed By: #### [id number] #### MARCUS RemHemo [address] [place] [address] CO2 [Moles/Vol] 22.0 21.0-32.0 mEq/L Normal 09-22-2018 [facility] (00 000) Comment: Performed By: #### [id number] #### MARCUS RemHemo [address] [place] [address] Creatinine [Mass/Vol] 1.4 0.5-1.1 mg/dL High 09-22-20 18 [facility] (00 000) Comment: Performed By: #### [id number] #### MARCUS RemHemo [address] [place] [address] Glucose [Mass/Vol] 93 70-99 mg/dL Normal 09-22-2018 [facility] (03336) Comment: Performed By: #### [id number] #### MARCUS RemHemo [address] [place] [address] Potassium [Moles/Vol] 4.7 3.5-5.3 mEq/L Normal 09-22-20 18 [facility] (00 000) Comment: Performed By: #### [id number] #### MARCUS Kenyono [address] [place] [address] Sodium [Moles/Vol] 139 136-145 mEq/L Normal 09-22-2018 [facility] (00 000) Comment: Performed By: #### [id number] #### MARCUS Kenyono [address] [place] [address] Urea nitrogen [Mass/Vol] 15 6-23 mg/dL Normal 09-22 [facility] (00 000) Comment: Performed By: #### [id number] #### MARCUSShawn Wilcox[address] [address] Urea nitrogen/Creatinine 10.7 5.4-30.0 ratio Normal 09-22 [facility] [Mass ratio] [facility] (08716) Comment: Performed By: #### [id number] #### MARCUSShawn Wilcox[address] [address] auto diff on 2017-10 2-06 Basophils (Bld) [#/Vol] 0.0 0.0-0.2 E3/mcL Normal 2017 [facility] (11194) Comment: Order Comment: Order Added b y Discern Expert. Performed By: #### [id number] #### MARCUS Kenyono [address] [place] [address] Basophils/100 WBC (Bld) 0.4 0.0-2.0 % Normal 2017 [facility] (00 000) Comment: Order Comment: Order Added b y Discern Expert. Performed By: #### [id number] #### MARCUSShawn Kenyono [address] [place] [address] Eos Absolute 0.1 0.0-0.7 E3/mcL Normal 09-22-2018 [facility] (63456) Comment: Order Comment: Order Added b y Discern Expert. Performed By: #### [id number] #### MARCUS [address] [address] Eosinophils/100 WBC (Bld) 1.6 0.0-11.0 % Normal [facility] (00 000) Comment: Order Comment: Order Added b y Discern Expert. Performed By: #### [id number] #### MARCUS WilcoxHemo [address] [place] [address] Lymphocytes (Bld) [#/Vol] 2.0 1.2-3.4 E3/mcL Normal [facility] (53427) Comment: Order Comment: Order Added b y Discern Expert. Performed By: #### [id number] #### MARCUS JeriHemo [address] [place] [address] Lymphocytes/100 WBC (Bld) 30.2 20.0-55.0 % Normal [facility] (77263) Comment: Order Comment: Order Added b y Discern Expert. Performed By: #### [id number] #### MARCUS JeriHemo [address] [place] [address] Laporte Absolute 0.6 0.0-0.7 E3/mcL Normal 09-22-2018 [facility] (01279) Comment: Order Comment: Order Added b y Discern Expert. Performed By: #### [id number] #### MARCUS WilcoxHemo [address] [place] [address] Monocytes/100 WBC (Bld) 9.0 0.0-10.0 % Normal 2017 [facility] (00 000) Comment: Order Comment: Order Added b y Discern Expert. Performed By: #### [id number] #### MARCUS JeriHemo [address] [place] [address] Neutro Absolute 3.9 1.4-6.5 E3/mcL Normal 09-22-2018 [facility] (15607) Comment: Order Comment: Order Added b y Discern Expert. Performed By: #### [id number] #### MARCUS JeriHemo [facility] [place] [address] Neutro Auto 58.8 37.0-75.0 % Normal 09-22-2018 [facility] (01400) Comment: Order Comment: Order Added b y Discern Expert. Performed By: #### [id number] #### MARCUS RemHemo [address] [place] [address] c urine on C Urine Final Report: Few Mixed skin Normal 1 [facility] (59255) Comment: Performed By: #### [id number] # ### MARCUS Microbiology Subsection [address] [place] [address] ua complete on 2017 Color (U) Yellow Yellow Normal 08-15-2018 [facility] (46056) Comment: Order Comment: Straight Cath as needed Performed By: #### [id number] #### MARCUS Urinalysis Automated Suggs bsection [address] [place] [address] Glucose (U) [Mass/Vol] 1+ Negative Abnormal 018 [facility] (00 000) Comment: Order Comment: Straight Cath as needed Performed By: #### [id number] #### MARCUS Urinalysis Automated Suggs bsection [address] [place] [address] Ketones Ql (U) Negative Negative Normal 08-15-[address] [facility] (13045) Comment: Order Comment: Straight Cath as needed Performed By: #### [id number] #### MARCUS Urinalysis Automated Suggs bsection [address] [place] [address] RBC (U) [#/Vol] 0-3 0-3 Normal 08-15-2018 [facility] (81711) Comment: Order Comment: Straight Cath as needed Performed By: #### [id number] #### MARCUS Urinalysis Automated Suggs bsection [address] [place] [address] UA Blood Negative Negative Normal 08-15-2018 [facility] (49331) Comment: Order Comment: Straight Cath as needed Performed By: #### [id number] #### MARCUS Urinalysis Automated Suggs bsection [address] [place] [address] UA Bacteria Trace None Abnormal 08-15-2018 [facility] (24912) Comment: Order Comment: Straight Cath as needed Performed By: #### [id number] #### MARCUS Urinalysis Automated Suggs bsection [address] [place] [address] UA Clarity SltCloudy Clear Abnormal 08-15-[address] [facility] (73761) Comment: Order Comment: Straight Cath as needed Performed By: #### [id number] #### MARCUS Urinalysis Automated Suggs bsection [address] [place] [address] UA Hyal Cast 0-2 0-2 Normal 08-15-2018 [facility] (52188) Comment: Order Comment: Straight Cath as needed Performed By: #### [id number] #### MARCUS Urinalysis Automated Suggs bsection [address] [place] [address] UA Leuk Est 1+ Negative Abnormal 08-15-2018 [facility] (98119) Comment: Order Comment: Straight Cath as needed Performed By: #### [id number] #### MARCUS Urinalysis Automated Suggs bsection [address] [place] UA Mucous Trace Trace Abnormal 08-15-2018 [facility] (10159) Comment: Order Comment: Straight Cath as needed Performed By: #### [id number] #### MARCUS Urinalysis Automated Suggs bsection [address] [place] [address] UA Nitrite Negative Negative Normal 08-15-[address] [facility] (22100) Comment: Order Comment: Straight Cath as needed Performed By: #### [id number] #### MARCUS Urinalysis Automated Suggs bsection [address] [place] [address] UA pH 7.0 4.6-8.0 Normal 08-15-2018 [facility] (06751) Comment: Order Comment: Straight Cath as needed Performed By: #### [id number] #### MARCUS Urinalysis Automated Suggs bsection [address] [place] [address] UA Protein Negative Negative Normal 08-15-[address] [facility] (01536) Comment: Order Comment: Straight Cath as needed Performed By: #### [id number] #### MARCUS Urinalysis Automated Suggs bsection [address] [place] [address] UA Spec Grav 1.012 1.003-1.030 Normal 08-15-[address] [facility] (45666) Comment: Order Comment: Straight Cath as needed Performed By: #### [id number] #### MARCUS Urinalysis Automated Suggs bsection [address] [place] [address] UA Squam Epithelial 5-10 0-5 Abnormal 08-15-2018 [facility] (62921) Comment: Order Comment: Straight Cath as needed Performed By: #### [id number] #### MARCUS Urinalysis Automated Suggs bsection [address] [place] [address] UA Urobilinogen Negative Normal 08-15-2018 [facility] (82720) Comment: Order Comment: Straight Cath as needed Performed By: #### [id number] #### MARCUS Urinalysis Automated Suggs bsection [address] [place] [address] UA WBC 10-20 0-5 Abnormal 08-15-2018 [facility] (61450) Comment: Order Comment: Straight Cath as needed Performed By: #### [id number] #### MARCUS Urinalysis Automated Suggs bsection [address] [place] [address] Urobilinogen Qn (U) Negative Negative Normal 08-15-2018 [facility] (00 000) Comment: Order Comment: Straight Cath as needed Performed By: #### [id number] #### MARCUS Urinalysis Automated Suggs bsection [address] [place] [address] zzplt morph on 2017 Platelet morphology finding NORMAL Normal [facility] (d) System (00 000) Comment: Performed By: #### [id number] #### MARCUS RemHemo [address] [place] [address] Platelets (Bld) [#/Vol] DECREASED Normal 2017 [facility] (00 000) Comment: Performed By: #### [id number] #### MARCUS RemHemo [address] [place] [id number] tsh on 2018-08-14 TSH Qn 2.16 0.30-5.60 mcIU/mL Normal 08-14-2018 [facility] (54741) Comment: Order Comment: With T4fr Ref kurt Performed By: #### [id number] # ### MARCUS Rem[employer] [address] [id number] morph on 2018-08-14 Anisocytosis Ql (Bld) 1+ Normal 08-14-20 18 [facility] (05315) Comment: Order Comment: Order Added erma Aldana Expert. Performed By: #### [id number] #### MARCUSShawn WilcoxHemo [address] [place] [address] RBC morphology finding SEE MORPHOLOGY Normal [facility] Nom (Bld) Health Sys tem (74897) Comment: Order Comment: Order Added erma Aldana Expert. Performed By: #### [id number] #### MARCUSShawn WilcoxHemo [address] [id number] egfr on 2018-08-14 GFR/1.73 sq M predicted 53 mL/min/1.73 m2 Normal 1 [facility] among non-blacks [facility] (31505) (S/P/Bld) [Vol rate/Area] Comment: Order Comment: Order added erma Aldana Expert. Performed By: #### [id number] #### MARCUSShawn WilcoxChem [address] [place], [place] [address] GFR/1.73 sq M predicted 44 mL/min/1.73 m2 Normal 1 [facility] among non-blacks [facility] (33074) (S/P/Bld) [Vol rate/Area] Comment: Order Comment: Order added erma Aldana Expert. Performed By: #### [id number] #### MARCUSShawn WilcoxChem [address] [place], [place] [id number] cbc w/ auto diff on 2018-08-14 Erythrocyte distribution 13.2 11.5-14.5 % Normal 08-14 [facility] width (RBC) [Ratio] Health System (30402) Comment: Performed By: #### [id number] # ### MARCUS RemHemo [address] [place] [address] Hematocrit (Bld) [Volume 42.1 36.0-48.0 % Normal 08-14 [facility] fraction] Health Sys tem (38334) Comment: Performed By: #### [id number] # ### MARCUS RemHemo [address] [id number] Hemoglobin (Bld) 14.1 12.0-16.0 G/DL Normal 08-14-2018 [facility] [Mass/Vol] Health Sy stem (24122) Comment: Performed By: #### [id number] # ### MARCUS WilcoxHemo [address] [place] [address] MCH (RBC) [Entitic mass] 30.8 27.0-31.0 pg Normal 08-14 [facility] () Comment: Performed By: #### [id number] # ### MARCUS WilcoxHemo [facility] [place] [address] MCHC (RBC) [Mass/Vol] 33.5 33.0-37.0 G/DL Normal 08-14-20 [facility] () Comment: Performed By: #### [id number] # ### MARCUS WilcoxHemo [facility] [place] [address] MCV (RBC) [Entitic vol] 91.7 78.0-100.0 fL Normal 08-14 [facility] (81110) Comment: Performed By: #### [id number] # ### MARCUS JeriHemo [address] [place] [address] Platelet mean volume 8.8 7.4-11.0 fL Normal 8 [facility] ([facility]) [Entitic vol] System (06188) Comment: Performed By: #### [id number] # ### MARCUS RemHemo [address] [place] [address] Platelets (Bld) [#/Vol] 78 130-400 E3/mcL Low 2017 [facility] () Comment: Performed By: #### [id number] # ### MARCUS RemHemo [address] [place] [address] RBC (Bld) [#/Vol] 4.60 3.90-5.40 E6/mcL Normal 08-14-2018 [facility] () Comment: Performed By: #### [id number] # ### MARCUS RemHemo [address] [place] [address] WBC (Bld) [#/Vol] 4.2 3.6-11.0 E3/mcL Normal 08-14-2018 [facility] () Comment: Performed By: #### [id number] # ### MARCUS RemHemo [address] [place] [address] bmp on 2018-08-14 Anion gap [Moles/Vol] 13 10-20 mEq/L Normal 08-14-20 [facility] ( 000) Comment: Performed By: #### [id number] # ### MARCUS [facility] [address] [place] [address] Calcium [Mass/Vol] 8.3 8.6-10.3 mg/dL Low 08-14-2018 [facility] (56730) Comment: Performed By: #### [id number] # ### MARCUS [facility] [address] [place] [address] Chloride [Moles/Vol] 110 98-107 mEq/L High [facility] (00 000) Comment: Performed By: #### [id number] # ### MARCUS [facility] [address] [place] [address] CO2 [Moles/Vol] 21.0 21.0-32.0 mEq/L Normal 08-14-2018 [facility] ( 000) Comment: Performed By: #### [id number] # ### MARCUS [facility] [address] [place] [address] Creatinine [Mass/Vol] 1.3 0.6-1.3 mg/dL Normal 08-14-20 18 [facility] (00 000) Comment: Performed By: #### [id number] # ### MARCUS [facility] [address] [place] [address] Glucose [Mass/Vol] 122 70-99 mg/dL High 08-14-2018 [facility] (47465) Comment: Performed By: #### [id number] # ### MARCUS [facility] [address] [place] [address] Potassium [Moles/Vol] 3.3 3.5-5.3 mEq/L Low 08-14-20 18 [facility] (00 000) Comment: Performed By: #### [id number] # ### MARCUS [facility] [address] [place] [address] Sodium [Moles/Vol] 141 136-145 mEq/L Normal 08-14-2018 [facility] (00 000) Comment: Performed By: #### [id number] # ### MARCUSShawn [address] [address] Urea nitrogen [Mass/Vol] 13 6-23 mg/dL Normal 08-14 [facility] (00 000) Comment: Performed By: #### [id number] # ### MARCUS [address] [address] Urea nitrogen/Creatinine 10.0 5.4-30.0 ratio Normal 08-14 [facility] [Mass ratio] [facility] (60051) Comment: Performed By: #### [id number] # ### [address] [address] auto diff on 2017-10 Basophils (Bld) [#/Vol] 0.0 0.0-0.2 E3/mcL Normal 2017 [facility] (88814) Comment: Order Comment: Order Added b y Discern Expert. Performed By: #### [id number] # ### MARCUS WilcoxHemo [address] [place] [address] Basophils/100 WBC (Bld) 0.7 0.0-2.0 % Normal 2017 [facility] (00 000) Comment: Order Comment: Order Added b y Discern Expert. Performed By: #### [id number] # ### MARCUSShawn WilcoxAzuquao [address] [place] [address] Eos Absolute 0.1 0.0-0.7 E3/mcL Normal 08-14-2018 [facility] (86080) Comment: Order Comment: Order Added b y Discern Expert. Performed By: #### [id number] # ### MARCUSShawn WilcoxHemo [address] [place] [address] Eosinophils/100 WBC (Bld) 2.2 0.0-11.0 % Normal 07-19 [facility] (00 000) Comment: Order Comment: Order Added b y Discern Expert. Performed By: #### [id number] # ### [facility] [address] [place] [address] Lymphocytes (Bld) [#/Vol] 1.4 1.2-3.4 E3/mcL Normal 07-19 [facility] (84710) Comment: Order Comment: Order Added b y Discern Expert. Performed By: #### [id number] # ### MARCUS Kenyono [address] [place] [address] Lymphocytes/100 WBC (Bld) 32.5 20.0-55.0 % Normal 07-19 [facility] (39786) Comment: Order Comment: Order Added b y Discern Expert. Performed By: #### [id number] # ### MARCUS WilcoxHemo [address] [place] [address] Laporte Absolute 0.4 0.0-0.7 E3/mcL Normal 08-14-2018 [facility] (20274) Comment: Order Comment: Order Added b y Discern Expert. Performed By: #### [id number] # ### MARCUS WilcoxHemo [address] [place] [address] Monocytes/100 WBC (Bld) 9.7 0.0-10.0 % Normal 2017 [facility] (00 000) Comment: Order Comment: Order Added b y Discern Expert. Performed By: #### [id number] # ### MARCUS WilcoxHemo [address] [place] [address] Neutro Absolute 2.3 1.4-6.5 E3/mcL Normal 08-14-2018 [facility] (90464) Comment: Order Comment: Order Added b y Discern Expert. Performed By: #### [id number] # ### MARCUS WilcoxHemo [address] [place] [address] Neutro Auto 54.9 37.0-75.0 % Normal 08-14-2018 [facility] (76632) Comment: Order Comment: Order Added b y Discern Expert. Performed By: #### [id number] # ### MARCUS WilcoxHemo [address] [place] [address] culture, urine on Culture, Urine Test Name: Culture, Urine Normal 06-16-2018 [facility] Culture Status: [facility] Culture Report: No significant growth. (72254) Micro Source: Urine - clean catch Comment: Performed By: #### GLUX #### Unless otherwise noted, all testing performed by [facility] [address] [place], [place] [address] CLIA: [id number] Architect Intern: Ismael vines M.D. No panel information on 2018-06-16 Bilirubin Ql (U) Negative Negative Invalid 06-16-2018 [facility] Interpretation (4321 5) Code Glucose Ql (U) Negative Normal, Invalid 06-16-2018 [facility] Negative Interpretation (4321 5) mg/dL Code Hemoglobin Test Large Negative Abnormal 06-16-2018 [facility] strip Ql (U) (51031) Interpretation and Abnormal Invalid 06-16-2018 [facility] review of Interpretation (4321 5) laboratory results Code Ketones Ql (U) Negative Negative Invalid 06-16-2018 [facility] mg/dL Interpretation (4321 5) Code Leukocyte esterase Small Negative Abnormal 06-16-2018 [facility] Test strip Ql (U) (4 3215) Nitrite Test strip Negative Negative Invalid 06-16-2018 [facility] Ql (U) Interpretation (4321 5) Code pH Test strip (U) 7.5 OTH - OTH [pH] Abnormal 06-16-2018 [facility] (47375) Protein Test strip Trace Negative Abnormal 06-16-2018 [facility] Ql (U) mg/dL (91667) Specific gravity 1.020 OTH - OTH Invalid 06-16-2018 [facility] [place] Relative Density Interpretation (00513) (U) Code Urobilinogen Test 0.2 <2.0, 0.2, mg/d Invalid 06-16-2018 [facility] strip Qn (U) Normal, L Interpretation (4 3215) Negative, Code 1.0, 2.0, <1.0 cur on 2018-05-15 CUR . MICRO - MicrobiologyPROCEDURE: Normal 05-15-2018 [facility] Urine Culture [*1] ACCESSION: [facility] ([place]) (09858) [id number]: Urine, Straight BODY SITE: CatherizedCOLLECTED DATE/TIME: 05/13/2018 22:15 EDT RECEIVED DATE/TIME: 05/14/2018 17:17 EDTSTART DATE/TIME: 05/14/2018 17:17 EDT FREE TEXT SOURCE:PRELIMINARY REPORTSPreliminary Report []Verified Date/Time/Personnel: 05/15/2018 14:09 EDTCulture results pending.Performing Locations*1: This test was performed at: [facility], [address] [place] [address], [address]- , [facility] Comment: Performed By: #### CBC, ADIF F, ANEU ####[facility] [place], [place] [address]#### L IP, CMP, GFR ####[place] [address] [place] [address] xr abdomen complete w/decub/erect on 2018-05-14 XR ABDOMEN COMPLETE ORIGINALSupine and Normal 0 05-14-2018 [facility] W/DECUB/ERECT upright views of the [facility] ([place]) abdomen HISTORY: (00 000) Abdominal pain COMPARISON: None The lung bases are unremarkable. There is a ring at the level of the distal esophagus, of uncertain significance. I am uncertain if this is ingested or postoperative. There is an IUD centrally located within the pelvis. Bowel gas pattern is normal. No visceromegaly or soft tissue mass seen. No osseous abnormality. IMPRESSION: I suspect that the abnormality at the distal esophagus is ingested rather than postoperative. Correlation with history of a needed. There is no other potential acute finding identified. Interpreted By: Alexander Youngreliminary Report By: Alxeander Young MDElectronically Signed By: Alexander Young MD Dictated Date: 05/13/2018 10:11:56 PM Prelim Date: 05/13/2018 10:11:56 PM Sign Date: 05/13/2018 10:14:29 PM patient summary documents on 2018-05-14 Patient Summary Documents Normal 04-18 [facility] ([place]) (07152) [facility] on Pat Edu Normal 05-14-2018 [facility]) (95396) [facility] note on 2018-05-14 [facility] Note Normal 0 05-14-2018 [facility] ([place]) (22001) lip on 2018-05-14 Lipase Level 250 73-393 U/L Normal 05-14-2018 [facility] ([place]) (38249) Comment: Performed By: #### CBC, ADIF F, ANEU ####[address] [address]#### L IP, CMP, GFR ####[address] [address] cmp on 2018-05-14 Alanine aminotransferase (ALT) 41 10-35 U/L High 05-14-2018 [facility] ([place]) (0000 0) Comment: Performed By: #### CBC, ADIF F, ANEU ####[address] [address]#### L IP, CMP, GFR ####[place] [address] Albumin 3.4 3.5-5.0 G/dL Low 05-14-2018 [facility] ([place]) (57289) Comment: Performed By: #### CBC, ADIF F, ANEU ####[address] [address] [address]#### L IP, CMP, GFR ####[place] [address] Albumin/Globulin Ratio 1.2 1.1-2.5 ratio Normal [address] [place] [address] ([place]) (0000 0) Comment: Performed By: #### CBC, ADIF F, ANEU ####[address] [address]#### L IP, CMP, GFR ####[address] [address] Alk Phos 56 40-135 U/L Normal 05-14-2018 [facility] ([place]) (30461) Comment: Performed By: #### CBC, ADIF F, ANEU ####[address] [place] [place] [address]#### L IP, CMP, GFR ####[place] [address] Aspartate aminotransferase 42 10-40 U/L High [facility] ([facility]) ([place]) (0000 0) Comment: Performed By: #### CBC, ADIF F, ANEU ####[address] [place] [address]#### L IP, CMP, GFR ####[place] [address] Bili Total 0.5 0.2-1.0 mg/dL Normal 05-14-2018 [facility] ([place]) (30269) Comment: Performed By: #### CBC, ADIF F, ANEU ####[address] [address]#### L IP, CMP, GFR ####[place] [address] BUN/Creatinine Ratio 14 7-27 ratio Normal 8 [facility] ([place]) (00856) Comment: Performed By: #### CBC, ADIF F, ANEU ####[address] [place] [address]#### L IP, CMP, GFR ####[place] [address] Calcium 8.0 8.4-10.2 mg/dL Low 05-14-2018 [facility] ([place]) (36345) Comment: Performed By: #### CBC, ADIF F, ANEU ####[address] [address]#### L IP, CMP, GFR ####[place] [address] Chloride 104 98-107 mmol/L Normal 05-14-2018 [facility] ([place]) (58828) Comment: Performed By: #### CBC, ADIF F, ANEU ####[address] [place] [address]#### L IP, CMP, GFR ####[place] [address] CO2 23 22-29 mmol/L Normal 05-14-2018 [facility] ([place]) (49970) Comment: Performed By: #### CBC, ADIF F, ANEU ####[address] [place] [place], [place] [address]#### L IP, CMP, GFR ####[place] [address] Creatinine 1.28 0.55-1.02 mg/dL High 05-14-2018 [facility] ([place]) (24390) Comment: Performed By: #### CBC, ADIF F, ANEU ####[address] [place] [place] [address]#### L IP, CMP, GFR ####[place] [address] Electrolyte Balance 9.0 mEq/L Normal 05-14-2018 [facility] ([place]) (50584) Comment: Performed By: #### CBC, ADIF F, ANEU ####[address] [place] [place] [address]#### L IP, CMP, GFR ####[place] [address] Globulin 2.9 G/dL Normal 05-14-2018 [facility] ([place]) (14511) Comment: Performed By: #### CBC, ADIF F, ANEU ####[address] [place] [place], [place] [address]#### L IP, CMP, GFR ####[place] [address] Glucose mass conc 90 70-105 mg/dL Normal 05-14-2018 [facility] ([place]) (11215) Comment: Performed By: #### CBC, ADIF F, ANEU ####[address] [place] [place], [place] [address]#### L IP, CMP, GFR ####[place] [address] Potassium molar conc 4.6 3.5-5.1 mmol/L Normal 8 [facility] ([place]) (0000 0) Comment: Performed By: #### CBC, ADIF F, ANEU ####[address] [place], [place] [address]#### L IP, CMP, GFR ####[place] [address] [place] [address] Protein 6.3 6.4-8.2 G/dL Low 05-14-2018 [facility] ([place]) (41267) Comment: Performed By: #### CBC, ADIF F, ANEU ####[address] [place], [place] [address]#### L IP, CMP, GFR ####[address] [address] Sodium 136 136-145 mmol/L Normal 05-14-2018 [facility] ([place]) (67894) Comment: Performed By: #### CBC, ADIF F, ANEU ####[address] [address]#### L IP, CMP, GFR ####[address] [address] Urea nitrogen 18 7-18 mg/dL Normal 05-14-2018 [facility] ([place]) (29144) Comment: Performed By: #### CBC, ADIF F, ANEU ####[address] [address]#### L IP, CMP, GFR ####[address] [address] .gfr on 2018-05-14 GFR Non- 45 ml/min/1.73sqm Normal 05-14-2018 [facility] ([place]) (32713) Comment: Result Comment: GFR Populati on mean for , Non- Americans Ages 20-29 = 116 m L/min/1.73 sq.m. Ages 30-39 = 107 mL/min/1.73 sq.m. Ages 40-49 = 99 mL/min /1.73 sq.m. Ages 50-59 = 93 mL/min/1.73 sq.m. Ages 60-69 = 85 mL/min/1.73 sq.m. Ages 70+ = 75 mL/min/1.73 sq.m.Chronic Kidney Disease: Less than 60 mL/min/1.73 square metersEnd Stage Renal Disease: Less than 15 mL/min /1.73 square meters Performed By: #### CBC, ADIF F, ANEU ####[address] [place], [place] [address]#### L IP, CMP, GFR ####[place] [address] [place] [address] GFR 55 ml/min/1.73sqm Normal - [facility] ([place]) (0000 0) Comment: Result Comment: GFR Populati on mean for , Non- Americans Ages 20-29 = 116 m L/min/1.73 sq.m. Ages 30-39 = 107 mL/min/1.73 sq.m. Ages 40-49 = 99 mL/min /1.73 sq.m. Ages 50-59 = 93 mL/min/1.73 sq.m. Ages 60-69 = 85 mL/min/1.73 sq.m. Ages 70+ = 75 mL/min/1.73 sq.m.Chronic Kidney Disease: Less than 60 mL/min/1.73 square metersEnd Stage Renal Disease: Less than 15 mL/min /1.73 square meters Performed By: #### CBC, ADIF F, ANEU ####[address] [place], [place] [address]#### L IP, CMP, GFR ####[place] [address] [place] [address] ua on 2018-05-13 UA Appear Slightly Cloudy Clear Invalid Interpretation 0 05-13-2018 [facility] ([place]) (50840) Comment: Performed By: #### UA, PREGU , UAMICAO ####[address] [place], [place] [address] UA Blood Negative Negative Normal 05-13-2018 [facility] ([place]) (48604) Comment: Performed By: #### UA, PREGU , UAMICAO ####[address] [place] [place], [place] [address] UA Leuk Est Small Negative Invalid Interpretation 05-13 [facility] ([place]) (75263) Comment: Performed By: #### UA, PREGU , UAMICAO ####[place] [address] [place], [place] [address] UA Nitrite Negative Negative Normal 05-13-2018 [facility] ([place]) (50371) Comment: Performed By: #### UA, PREGU , UAMICAO ####[place] [address] [place], [place] [address] UA pH 7.5 Normal 05-13-2018 [facility] ([place]) (45910) Comment: Performed By: #### UA, PREGU , UAMICAO ####[place] [address] [place], [place] [address] UA Protein Negative Negative Normal 05-13-2018 [facility] ([place]) (99378) Comment: Performed By: #### UA, PREGU , UAMICAO ####[place] [address] [place], [place] [address] UA Spec Grav 1.005 Invalid Interpretation Code 05-13-2018 [facility] ([place]) (40498) Comment: Performed By: #### UA, PREGU , UAMICAO ####[place] [address] [place], [place] [address] UA Specimen Type Clean Catch Normal 05-13-2018 [facility] ([place]) (02765) Comment: Performed By: #### UA, PREGU , UAMICAO ####[place] [address] [place], [place] [address] UA Urobilinogen 0.2 E.U./dL Normal 05-13-2018 [facility] ([place]) (36215) Comment: Performed By: #### UA, PREGU , UAMICAO ####[place] [address] [place], [place] [address] Urine, color Yellow Normal 05-13-2018 [facility] ([place]) (70318) Comment: Performed By: #### UA, PREGU , UAMICAO ####[place] [address] [place], [place] [address] Urine, glucose Negative Negative mg/dL Normal 05-13-2018 [facility] ([place]) (0000 0) Comment: Performed By: #### UA, PREGU , UAMICAO ####[address] [place], [place] [address] Urine, ketones presence Negative Negative Normal 2017 [facility] ([place]) (71923) Comment: Performed By: #### UA, PREGU , UAMICAO ####[address] [place], [place] [address] Urine, Negative Negative {Ayla'U}/dL Normal 05-13-2018 [facility] urobilinogen Foundat ion ([place]) (61821) Comment: Performed By: #### UA, PREGU , UAMICAO ####[address] [place], [place] [address] pregu on 2018-05-13 HCG ( test) Ql (U) Negative Normal [facility] ([place]) (0000 0) Comment: Performed By: #### UA, PREGU , UAMICAO ####[address] [place], [place] [address] test HCG not Invalid 05-13-2018 [facility] (u) int detected. Interpretation Code [facility] ([place]) (32923) Comment: Performed By: #### UA, PREGU , UAMICAO ####[address] [place], [place] [address] cbc on 2018-05-13 Erythrocyte distribution 13.9 11.5-14.5 % Normal 05-13 [facility] width Auto Ratio (RBC) [facility] ([place]) (41346) Comment: Performed By: #### CBC, ADIF F, ANEU ####[address] [place], [place] [address]#### L IP, CMP, GFR ####[address] [address] Erythrocytes (RBC) 5.57 4.20-5.40 10 6/mcL High 05-13-2018 [facility] ([place]) (0000 0) Comment: Performed By: #### CBC, ADIF F, ANEU ####[place] [address]#### L IP, CMP, GFR ####[place] [address] Hematocrit (HCT) 49.2 37.0-47.0 % High 05-13-2018 [facility] ([place]) (28402) Comment: Performed By: #### CBC, ADIF F, ANEU ####[place] [address]#### L IP, CMP, GFR ####[place] [address] Hemoglobin mass conc 17.1 12.0-16.0 G/dL High [address] [place] [address] ([facility] ([place]) (47291) Comment: Performed By: #### CBC, ADIF F, ANEU ####[place] [address]#### L IP, CMP, GFR ####[place] [address] MCH 30.6 27.0-31.2 pg Normal 05-13-2018 [facility] ([place]) (07979) Comment: Performed By: #### CBC, ADIF F, ANEU ####[place] [address]#### L IP, CMP, GFR ####[place] [address] MCHC mass conc (RBC) 34.7 33.0-37.0 G/dL Normal 8 [facility] ([place]) (0000 0) Comment: Performed By: #### CBC, ADIF F, ANEU ####[place] [address]#### L IP, CMP, GFR ####[place] [address] MCV 88.3 80.0-94.0 fL Normal 05-13-2018 [facility] ([place]) (69970) Comment: Performed By: #### CBC, ADIF F, ANEU ####[address] [place] [address]#### L IP, CMP, GFR ####[address] [address] Platelet mean volume 8.0 7.4-10.4 fL Normal 8 [facility] ([facility]) ([place]) (0000 0) Comment: Performed By: #### CBC, ADIF F, ANEU ####[address] [place] [address]#### L IP, CMP, GFR ####[address] [address] Platelets 113 130-400 10 3/mcL Low 05-13-2018 [facility] ([place]) (98386) Comment: Performed By: #### CBC, ADIF F, ANEU ####[address] [place] [address]#### L IP, CMP, GFR ####[place] [address] WBC (Leukocytes) 9.10 4.60-10.80 10 3/mcL Normal 05-13-2018 A [facility] ([place]) (0000 0) Comment: Performed By: #### CBC, ADIF F, ANEU ####[address] [place] [id number]#### L IP, CMP, GFR ####[address] [address] .urinalysis microscopic (ao) on 2018-05-13 UA Bacteria 1+ /hpf Invalid Interpretation Code 05-13-2018 [facility] ([place]) (09881) Comment: Performed By: #### UA, PREGU , UAMICAO ####[address] [place] [id number] UA Squam LOADED None Seen Invalid 05-13-2018 [facility] Epithelial Interpretation Code [facility] ([place]) (69727) Comment: Performed By: #### UA, PREGU , UAMICAO ####[address] [place] [id number] UA WBC LOADED None Seen Invalid Interpretation 018 [facility] ([place]) (47564) Comment: Performed By: #### UA, PREGU , UAMICAO ####[address] [place], [place] [address] Urine, erythrocytes None Seen None Seen Normal 05-13-2018 [facility] ([place]) (0000 0) Comment: Performed By: #### UA, PREGU , UAMICAO ####[address] [place], [place] [address] .neuabs on Neutrophil, Absolute 6.70 2.85-6.16 10 3/mcL High 8 [facility]) (79362) Comment: Performed By: #### CBC, ADIF F, ANEU ####[address] [address]#### L IP, CMP, GFR ####[place] [address] .auto diff on 05-13 Basophils Auto #/vol 0.00 0.00-0.19 10 3/mcL Normal 8 [facility] ([facility]) (62264) Comment: Performed By: #### CBC, ADIF F, ANEU ####[address] [address]#### L IP, CMP, GFR ####[address] [address] Basophils/100 WBC Auto (d) 0.5 0.0-2.5 % Normal 0 05-13-2018 [facility] ([place]) (0000 0) Comment: Performed By: #### CBC, ADIF F, ANEU ####[place] [id number]#### L IP, CMP, GFR ####[address] [address] Eosinophils 0.10 0.00-0.40 10 3/mcL Normal 05-13-2018 [facility]) (38537) Comment: Performed By: #### CBC, ADIF F, ANEU ####[place] [address]#### L IP, CMP, GFR ####[address] [address] Eosinophils/100 leukocytes 0.8 0.0-7.0 % Normal [facility] ([place]) (0000 0) Comment: Performed By: #### CBC, ADIF F, ANEU ####[place] [address]#### L IP, CMP, GFR ####[address] [address] Lymphocytes 1.60 0.77-3.85 10 3/mcL Normal 05-13-2018 [facility] ([place]) ([address]) Comment: Performed By: #### CBC, ADIF F, ANEU ####[place] [address]#### L IP, CMP, GFR ####[address] [address] Lymphocytes/100 leukocytes 18.0 10.0-50.0 % Normal [facility] ([place]) ([address]503) Comment: Performed By: #### CBC, ADIF F, ANEU ####[place] [address]#### L IP, CMP, GFR ####[address] [address] Monocytes 0.60 0.15-1.00 10 3/[facility] Normal 05-13-2018 [facility] ([place]) ([address]7633) Comment: Performed By: #### CBC, ADIF F, ANEU ####[place] [address]#### L IP, CMP, GFR ####[address] [address] Monocytes/100 leukocytes 6.8 1.7-13.0 % Normal 05-13 [facility] ([place]) (0000 0) Comment: Performed By: #### CBC, ADIF F, ANEU ####[address] [place], [place] [address]#### L IP, CMP, GFR ####[place] [address] [place] [address] Neutrophils/100 WBC Auto 73.9 37.0-80.0 % Normal 05-13 [facility] (d) [facility] ([place]) ([address]) Comment: Performed By: #### CBC, ADIF F, ANEU ####[facility] [place], [place] [address]#### L IP, CMP, GFR ####[place] 0[address] [place] [address] urinalysis, routine on 2018-03-15 Bacteria LM.HPF #/area Few NS;RARE Abnormal [address] [place] [address] and (Urine sed) [facility] ([address]) Comment: Performed By: #### [place] #### Unless otherwise noted, all testing performed by [facility] [address] [place] [address] CLIA: [id number] Architect Intern: Ismael vines M.D. Bilirubin,Urine Negative NEG;NEGATIVE Normal 03-15-2018 [facility] (10963) Comment: Performed By: #### [place] #### Unless otherwise noted, all testing performed by [facility] [address] [place] [address] CLIA: [id number] Architect Intern: Ismael vines M.D. Blood,Urine Small NEG;NEGATIVE Abnormal 03-15-2018 [facility] (13445) Comment: Performed By: #### [place] #### Unless otherwise noted, all testing performed by [facility] [address] [place] [address] CLIA: [id number] Architect Intern: Ismael F ain, M.D. Character Nom (U) Cloudy Normal 03-15-2018 [facility] (32161) Comment: Performed By: #### [place] #### Unless otherwise noted, all testing performed by [place] [address] CLIA: [id number] Architect Intern: Ismael vines M.D. Color Nom (U) Yellow Normal 03-15-2018 [facility] (02395) Comment: Performed By: #### [place] #### Unless otherwise noted, all testing performed by [place] [address] CLIA: [id number] Architect Intern: Ismael vines M.D. Glucose Ql (U) Negative NEG;NEGATIVE Normal 03-15-2018 [facility] (27930) Comment: Performed By: #### [place] #### Unless otherwise noted, all testing performed by [place] [address] CLIA: [id number] Architect Intern: Ismael vines M.D. Ketone,Urine Negative NEG;NEGATIVE Normal 03-15-2018 [facility] (92154) Comment: Performed By: #### [place] #### Unless otherwise noted, all testing performed by [place] [address] CLIA: [id number] Architect Intern: Ismael vines M.D. Leuk.Esterase,Urine Large Negative Abnormal 03-15-2018 [facility] (81780) Comment: Performed By: #### [place] #### Unless otherwise noted, all testing performed by [place] [address] CLIA: [id number] Architect Intern: Ismael vines M.D. Nitrite,Urine Negative NEG;NEGATIVE Normal 03-15-2018 [facility] (91350) Comment: Performed By: #### [place] #### Unless otherwise noted, all testing performed by [facility] [address] [place] [address] CLIA: [id number] Architect Intern: Ismael vines M.D. pH (U) 5.0 4.5-8.0 [pH] Normal 03-15-2018 [facility] (52819) Comment: Performed By: #### [place] #### Unless otherwise noted, all testing performed by [place] [address] CLIA: [id number] Architect Intern: Ismael vines M.D. Protein mass conc Negative NEG;NEGATIVE mg/dL Normal 8 [facility] ([facility] ([address]75) Comment: Performed By: #### [place] #### Unless otherwise noted, all testing performed by [place] [address] CLIA: [id number] Architect Intern: Ismael vines M.D. RBC,Urine 8 0-5 /HPF High 03-15-2018 [facility] (14296) Comment: Performed By: #### [place] #### Unless otherwise noted, all testing performed by [facility] [address] [place] [address] CLIA: [id number] Architect Intern: Ismael vines M.D. Specific [place],Urine 1.015 1.003-1.029 Normal 03-[address] [facility] pitals (78652) Comment: Performed By: #### [place] #### Unless otherwise noted, all testing performed by [facility] [address] [facility]. [place] [address] CLIA: [id number] Architect Intern: Ismael vines M.D. Squamous Epithelial 11 0-40 /HPF Normal 03-15-2018 [facility] (69433) Comment: Performed By: #### [place] #### Unless otherwise noted, all testing performed by [facility] [address] [facility] [place] [address] CLIA: [id number] Architect Intern: Ismael vines M.D. Urobilinogen,Urine < 2.0 <2 Normal 03-15-2018 [facility] (41606) Comment: Performed By: #### [place] #### Unless otherwise noted, all testing performed by [facility] [address] [place] [address] CLIA: [id number] Architect Intern: Ismael vines M.D. WBC,Urine 46 0-5 /HPF High 03-15-2018 [facility] (99698) Comment: Performed By: #### [place] #### Unless otherwise noted, all testing performed by [facility] [address] [facility] [place] [address] CLIA: [id number] Architect Intern: Ismael vines M.D. test,urine qual on 2018-03-15 HCG.beta subunit Negative Negative Normal 03-15-2018 [facility] ( test[facility] ([address]486[facility] Comment: Result Comment: Rapid test p rocedural control acceptable. If a negative result is obta ined but is suspected, hCG levels may be too low or urine may be too dilute for detection. Another specimen should be collected after 48 -72 hours and tested. If waiting 48 hours is not medically advisable, the test result should be confirmed with a more sensitive quantitative serum hCG test. Performed By: #### [place] #### Unless otherwise noted, all testing performed by [facility] [address] [place] [address] CLIA: [id number] Architect Intern: Ismael vines M.D. lipase on 2018-02-16 9 Lipase enzyme act/vol 288 73-393 U/L Normal 03-15-20 18 [facility] (03596) Comment: Performed By: #### [place] #### Unless otherwise noted, all testing performed by [facility] [address] [facility]. [place] [address] CLIA: [id number] Architect Intern: Ismael vines M.D. ed cardiac troponin-i on 2018-03-15 Troponin I.cardiac mass < 15 < 45 ng/mL Normal 2017 [facility] (38719) Comment: Result Comment: Elevation of troponin indicates some degree of myocardial necrosis but unless there is a significan t rise and/or fall (if elevated) identified, it unlikely that an acute ev ent has taken place Samples from patients routin sohail receiving high dose biotin therapy (100-300 mg/day) may show fa lsely decreased results. Please correlate clinically. Performed By: #### CBCDIF, E DCTNI, CMET, LIPASE #### Unless otherwise noted, all testing performed by [facility] [address] [facility] [place] [address] CLIA: [id number] Architect Intern: Ismael vines M.D. comprehensive metabolic panel on 2018-03-15 Albumin mass conc 3.8 3.2-5.2 g/dL Normal 03-15-2018 [facility] (37991) Comment: Performed By: #### [place] #### Unless otherwise noted, all testing performed by [facility] [address] [facility]. [place] [address] CLIA: [id number] Architect Intern: Ismael vines M.D. ALP enzyme act/vol 66 40-150 U/L Normal 03-15-2018 [facility] (79463) Comment: Performed By: #### [place] #### Unless otherwise noted, all testing performed by [facility] [address] [place] [address] CLIA: [id number] Architect Intern: Ismael viens M.D. ALT enzyme act/vol 56 14-65 U/L Normal 03-15-2018 [facility] (96269) Comment: Result Comment: This test re sult might be falsely depressed or falsely elevated on samples drawn from patients taking Sulfasalazine and Sulfapyridine. Venipuncture should occur pr ior to taking either of these drugs. Performed By: #### GL[place] #### Unless otherwise noted, all testing performed by [facility] [address] [place] [address] CLIA: [id number] Architect Intern: Ismael vines M.D. AST enzyme act/vol 51 0-45 U/L High 03-15-2018 [facility] (51112) Comment: Result Comment: This test re sult might be falsely depressed or falsely elevated on samples drawn from patients taking Sulfasalazine and Sulfapyridine. Venipuncture should occur pr ior to taking either of these drugs. Performed By: #### [place] #### Unless otherwise noted, all testing performed by [facility] [address] [place] [address] CLIA: [id number] Architect Intern: Ismael vines M.D. Bilirubin mass conc 0.5 0.3-1.2 mg/dL Normal 03-15-2018 [facility] (90752) Comment: Performed By: #### GL[place] #### Unless otherwise noted, all testing performed by [facility] [address] [place] [address] CLIA: [id number] Architect Intern: Ismael vines M.D. Calcium mass conc 9.7 8.4-10.2 mg/dL Normal 03-15-2018 [facility] (38146) Comment: Performed By: #### [place] #### Unless otherwise noted, all testing performed by [place] [address] CLIA: [id number] Architect Intern: Ismael vines M.D. Chloride molar conc 105 98-108 mmol/L Normal 03-15-2018 [facility] (56399) Comment: Performed By: #### [place] #### Unless otherwise noted, all testing performed by [place] [address] CLIA: [id number] Architect Intern: Ismael vines M.D. CO2 molar conc 26 21-32 mmol/L Normal 03-15-2018 [facility] (26543) Comment: Performed By: #### GLUX #### Unless otherwise noted, all testing performed by [place] [address] CLIA: [id number] Architect Intern: Ismael vines M.D. Creatinine mass conc 1.67 0.40-1.10 mg/dL High 8 [facility] (83050) Comment: Performed By: #### GLUX #### Unless otherwise noted, [facility] [address] [place] [address] CLIA: [id number] Architect Intern: Ismael vines M.D. GFR/1.73 sq M predicted 40 >60 ml/min/1.73sq.m Low 03-15-2018 [facility] and among blacks [facility] (52248) rate/area (S/P/Bld) Comment: Result Comment: Amer ican GFR Calc Performed By: #### [place] #### Unless otherwise noted, all testing performed by [facility] [address] [facility]. [place] [address] CLIA: [id number] Architect Intern: Ismael vines M.D. GFR/1.73 sq M predicted 33 >60 ml/min/1.73sq.m Low 03-15-2018 [facility] among non-blacks [facility] vol rate/area (S/P/Bld) (40385) Comment: Result Comment: Non- GFR Calc eGFR is an estimated Glomeru lar Filtration Rate based on the value of the patient's serum creat inine. In outpatients, eGFR should be used as a helpful tool in screeni ng for CKD. In inpatients or patients with acute renal failure, eGFR re presents the GFR at the moment of the draw and should be used with caut ion. Performed By: #### GL[place] #### Unless otherwise noted, all testing performed by [facility] [address] [facility] [place] [address] CLIA: [id number] Architect Intern: Ismael vines M.D. Glucose mass conc 88 70-99 mg/dL Normal 03-15-2018 [facility] (20196) Comment: Result Comment: This test re sult might be falsely depressed or falsely elevated on samples drawn from patients taking Sulfasalazine and Sulfapyridine. Venipuncture should occur pr ior to taking either of these drugs. Performed By: #### [place] #### Unless otherwise noted, all testing performed by [facility] [address] [facility] [place] [address] CLIA: [id number] Architect Intern: Ismael vines M.D. Potassium molar conc 4.4 3.5-5.1 mmol/L Normal 8 [facility] (80698) Comment: Performed By: #### [place] #### Unless otherwise noted, all testing performed by [facility] [address] [place] [address] CLIA: [id number] Architect Intern: Ismael vines M.D. Protein mass conc 7.3 6.0-8.0 g/dL Normal 03-15-2018 [facility] (34458) Comment: Performed By: #### [place] #### Unless otherwise noted, all testing performed by [facility] [address] [place] [address] CLIA: [id number] Architect Intern: Ismael vines M.D. Sodium molar conc 137 135-145 mmol/L Normal 03-15-2018 [facility] (49214) Comment: Performed By: #### [place] #### Unless otherwise noted, all testing performed by [facility] [address] [place] [address] CLIA: [id number] Architect Intern: Ismael vines M.D. Urea nitrogen mass conc 30 8-25 mg/dL High 2017 [facility] (16693) Comment: Performed By: #### GL[place] #### Unless otherwise noted, all testing performed by [facility] [address] [facility] [place] [address] CLIA: [id number] Architect Intern: Ismael vines M.D. cbc with diff on 04-03-29 Basophils #/vol (Bld) 0.1 0-0.2 K/mcL Normal 03-15-20 [facility] (95481) Comment: Performed By: #### CBCDIF, E DCTNI, CMET, LIPASE #### Unless otherwise noted, all testing performed by [place] [address] CLIA: [id number] Architect Intern: Ismael vines M.D. Basophils/100 WBC (Bld) 1.1 % Normal 2017 [facility] (73028) Comment: Performed By: #### CBCDIF, E DCTNI, CMET, LIPASE #### Unless otherwise noted, all testing performed by [place] [address] CLIA: [id number] Architect Intern: Ismael vines M.D. Eosinophils #/vol (Bld) 0.2 0-0.5 K/mcL Normal 2017 [facility] (71166) Comment: Performed By: #### CBCDIF, E DCTNI, CMET, LIPASE #### Unless otherwise noted, all testing performed by [place] [address] CLIA: [id number] Architect Intern: Ismael vines M.D. Eosinophils/100 WBC (Bld) 3.2 % Normal 02-16 [facility] (40264) Comment: Performed By: #### CBCDIF, E DCTNI, CMET, LIPASE #### Unless otherwise noted, all testing performed by [place] [address] CLIA: [id number] Architect Intern: Ismael vines M.D. Erythrocyte distribution 13.4 10.0-14.4 % Normal 03-15 [facility] and width Ratio (RBC) [facility] (12383) Comment: Performed By: #### CBCDIF, E DCTNI, CMET, LIPASE #### Unless otherwise noted, all testing performed by [place] [address] CLIA: [id number] Architect Intern: Ismael vines M.D. Hematocrit Volume Fraction 47.8 34.4-44.8 % High [facility] ([facility]) [facility] (44751) Comment: Performed By: #### CBCDIF, E DCTNI, CMET, LIPASE #### Unless otherwise noted, all testing performed by [place] [phone] CLIA: [id number] Architect Intern: Ismael vines M.D. Hemoglobin mass conc 15.7 11.6-15.4 g/dL High 8 [facility] and ([facility]) [facility] (00090) Comment: Performed By: #### CBCDIF, E DCTNI, CMET, LIPASE #### Unless otherwise noted, all testing performed by [place] [address] CLIA: [id number] Architect Intern: Ismael vines M.D. Lymphocytes #/vol (Bld) 1.4 1.0-3.7 K/mcL Normal 2017 [facility] (52345) Comment: Performed By: #### CBCDIF, E DCTNI, CMET, LIPASE #### Unless otherwise noted, all testing performed by [address], [place] [address] CLIA: [id number] Architect Intern: Ismael vines M.D. Lymphocytes/100 WBC (Bld) 24.7 % Normal 02-16 [facility] (20240) Comment: Performed By: #### CBCDIF, E DCTNI, CMET, LIPASE #### Unless otherwise noted, all testing performed by [place] [address] CLIA: [id number] Architect Intern: Ismael vines M.D. MCH Entitic mass (RBC) 29.6 27.9-33.9 pg Normal [address] [place] [address] ([address]573) Comment: Performed By: #### CBCDIF, E DCTNI, CMET, LIPASE #### Unless otherwise noted, all testing performed by [place] [address] CLIA: [id number] Architect Intern: Ismael vines M.D. MCHC mass conc (RBC) 32.8 33.1-35.1 g/dL Low 8 [facility] (07041) Comment: Performed By: #### CBCDIF, E DCTNI, CMET, LIPASE #### Unless otherwise noted, all testing performed by [place] [address] CLIA: [id number] Architect Intern: Ismael vines M.D. MCV Entitic volume 90.5 82.6-98.9 FL Normal 03-15-2018 [facility] and (RBC) [facility] (22376) Comment: Performed By: #### CBCDIF, E DCTNI, CMET, LIPASE #### Unless otherwise noted, all testing performed by [address] [place], [place] [address] CLIA: [id number] Architect Intern: Ismael vines M.D. Metamyelocytes/100 WBC (Bld) 2.2 0 % High 0 03-15-2018 [facility] (47575) Comment: Performed By: #### CBCDIF, E DCTNI, CMET, LIPASE #### Unless otherwise noted, all testing performed by [place] [address] CLIA: [id number] Architect Intern: Ismael vines M.D. Monocytes #/vol (Bld) 0.2 0.1-0.6 K/mcL Normal 03-15-20 18 [facility] (28433) Comment: Performed By: #### CBCDIF, E DCTNI, CMET, LIPASE #### Unless otherwise noted, all testing performed by [place] [address] CLIA: [id number] Architect Intern: Ismael vines M.D. Monocytes/100 WBC (Bld) 3.2 % Normal 2017 [facility] (09961) Comment: Performed By: #### CBCDIF, E DCTNI, CMET, LIPASE #### Unless otherwise noted, all testing performed by [place] [address] CLIA: [id number] Architect Intern: Ismael vines M.D. Neutrophils #/vol (Bld) 3.9 1.2-6.9 K/mcL Normal 2017 [facility] (56817) Comment: Performed By: #### CBCDIF, E DCTNI, CMET, LIPASE #### Unless otherwise noted, all testing performed by [facility] [address] [facility]. [place] [address] CLIA: [id number] Architect Intern: Ismael vines M.D. Nucleated RBC #/vol (Bld) 1 0 /100 WBC High 05- [facility] (95832) Comment: Performed By: #### CBCDIF, E DCTNI, CMET, LIPASE #### Unless otherwise noted, all testing performed by [facility] [address] [facility] [place] [address] CLIA: [id number] Architect Intern: Ismael vines M.D. Platelet mean volume 8.8 7.0-10.6 FL Normal 8 [facility] (Bld) [facility] (47162) Comment: Performed By: #### CBCDIF, E DCTNI, CMET, LIPASE #### Unless otherwise noted, all testing performed by [facility] [address] [place] [address] CLIA: [id number] Architect Intern: Ismael vines M.D. Platelets #/vol (Bld) 133 162-402 K/mcL Low 03-15-20 18 [facility] (06480) Comment: Performed By: #### CBCDIF, E DCTNI, CMET, LIPASE #### Unless otherwise noted, all testing performed by [facility] [address] [facility] [place] [address] CLIA: [id number] Architect Intern: Ismael vines M.D. RBC #/vol (Bld) 5.29 3.7-5.0 M/mcL High 03-15-2018 [facility] (55144) Comment: Performed By: #### CBCDIF, E DCTNI, CMET, LIPASE #### Unless otherwise noted, all testing performed by [facility] [address] [place] [address] CLIA: [id number] Architect Intern: Ismael vines M.D. Segmented Neut % 65.6 % Normal 03-15-2018 [facility] (77860) Comment: Result Comment: Smear review ed to verify automated differential> Performed By: #### CBCDIF, E DCTNI, CMET, LIPASE #### Unless otherwise noted, all testing performed by [facility] [address] [facility] [place] [address] CLIA: [id number] Architect Intern: Ismael vines M.D. WBC #/vol (Bld) 5.8 3.4-10.6 K/mcL Normal 03-15-2018 [facility] (93609) Comment: Performed By: #### CBCDIF, E DCTNI, CMET, LIPASE #### Unless otherwise noted, all testing performed by [facility] [address] [facility] [place] [address] CLIA: [id number] Architect Intern: Ismael vines M.D. us abdomen limited study on 2018-01-18 Invalid Interpretation Code ONBASE valproic acid on 02-01-18 Protein mass conc 72 50-100 mcg/mL Normal 01-02-2018 [facility] (09652) Comment: Result Comment: Result shoul d be correlated with last dose as reflected in the medical record. Performed By: #### [facility] #### Unless otherwise noted, all testing performed by [facility] [address] [facility] [place] [address] CLIA: [id number] Architect Intern: Ismael vines M.D. urinalysis, routine on 2018-01-02 Bilirubin,Urine Negative NEG;NEGATIVE Normal 01-02-2018 [facility] (01544) Comment: Performed By: #### UA #### Unless otherwise noted, all testing performed by [facility] [address] [place] [address] CLIA: [id number] Architect Intern: Ismael vines M.D. Blood,Urine Negative NEG;NEGATIVE Normal 01-02-2018 [facility] (72345) Comment: Performed By: #### UA #### Unless otherwise noted, all testing performed by [facility] [address] [place] [address] CLIA: [id number] Architect Intern: Ismael vines M.D. Character Nom (U) Clear Normal 01-02-2018 [facility] (73815) Comment: Performed By: #### UA #### Unless otherwise noted, all testing performed by [facility] [address] [place] [address] CLIA: [id number] Architect Intern: Ismael vines M.D. Color Nom (U) Straw Normal 01-02-2018 [facility] (61140) Comment: Performed By: #### UA #### Unless otherwise noted, all testing performed by [facility] [address] [facility] [place] [address] CLIA: [id number] Architect Intern: Ismael vines M.D. Glucose Ql (U) Negative NEG;NEGATIVE Normal 01-02-2018 [facility] (13884) Comment: Performed By: #### UA #### Unless otherwise noted, all testing performed by [facility] [address] [place] [address] CLIA: [id number] Architect Intern: Ismael vines M.D. Ketone,Urine Negative NEG;NEGATIVE Normal 01-02-2018 [facility] (66573) Comment: Performed By: #### UA #### Unless otherwise noted, all testing performed by [place] [address] CLIA: [id number] Architect Intern: Ismael vines M.D. Leuk.Esterase,Urine Negative Negative Normal 01-02-2018 [facility] (78114) Comment: Performed By: #### UA #### Unless otherwise noted, all testing performed by [place] [address] CLIA: [id number] Architect Intern: Ismael vines M.D. Nitrite,Urine Negative NEG;NEGATIVE Normal 01-02-2018 [facility] (68609) Comment: Performed By: #### UA #### Unless otherwise noted, all testing performed by [place] [address] CLIA: [id number] Architect Intern: Ismael vines M.D. pH (U) 6.0 4.5-8.0 [pH] Normal 01-02-2018 [facility] (33575) Comment: Performed By: #### UA #### Unless otherwise noted, all testing performed by [place] [address] CLIA: [id number] Architect Intern: Ismael vines M.D. Protein mass conc Negative NEG;NEGATIVE mg/dL Normal [address] [place] [address] () [facility] ([address]69) Comment: Performed By: #### UA #### Unless otherwise noted, all testing performed by [place] [address] CLIA: [id number] Architect Intern: Ismael vines M.D. RBC LM.HPF #/area (Urine < 1 0-5 /[HPF] Normal 01-02 [facility] (86379) Comment: Performed By: #### UA #### Unless otherwise noted, all testing performed by [place] [address] CLIA: [id number] Architect Intern: Ismael vines M.D. Specific [place],Urine 1.006 1.003-1.029 Normal 01-02 [facility] (01347) Comment: Performed By: #### UA #### Unless otherwise noted, all testing performed by [place] [phone] CLIA: [id number] Architect Intern: Ismael vines M.D. Squamous Epithelial 1 0-40 /HPF Normal 01-02-2018 [facility] (06920) Comment: Performed By: #### UA #### Unless otherwise noted, all testing performed by [place] [address] CLIA: [id number] Architect Intern: Ismael vines M.D. Urobilinogen,Urine < 2.0 <2 Normal 01-02-2018 [facility] ([id number]) Comment: Performed By: #### UA #### Unless otherwise noted, all testing performed by [place] [address] CLIA: [id number] Architect Intern: Ismael vines M.D. WBC,Urine 1 0-5 /HPF Normal 01-02-2018 [facility] (09475) Comment: Performed By: #### UA #### Unless otherwise noted, all testing performed by [facility] [address]. [place] [address] CLIA: [id number] Architect Intern: Ismael vines M.D. topiramate on 01-02 Topiramate 1.6 mcg/mL Normal 01-02-2018 [facility] ([id number]) Comment: Result Comment: -------REFERENCE VALUE Reference values depend on c linical use: Anticonvulsant: 5.0-20.0 mcg /mL Psychiatric: 2.0-8.0 mcg/mL ADDITIONA L INFORMATION This test was developed and its performance characteristics determined by [facility] in a manner consistent with CLIA requirements. This test has not been cleared or approved by the U.S. Food and Drug Admin istration. Test Performed by: [facility] [address] [place] [address] Performed By: #### REGGIE SANTOS #### Unless otherwise noted, all testing performed by [facility] [address] [facility] [place] [address] CLIA: [id number] Architect Intern: Ismael vines M.D. levetiracetam on 02-01-18 Levetiracetam mass conc 45.1 12.0 - 46.0 mcg/mL Normal 12-16 [facility] (43199) Comment: Result Comment: -------ADDITIONAL INFORMATION This test was developed and its performance characteristics determined by [facility] in a manner consistent with CLIA requirements. This test has not been cleared or approved by the U.S. Food and Drug Admin istration. Test Performed by: [facility] [address] [place] [address] Performed By: #### REGGIE SANTOS #### Unless otherwise noted, all testing performed by [facility] [address] [place], [place] [address] CLIA: [id number] Architect Intern: Ismael vines M.D. glucose, poc on 05-20-18 Glucose mass conc 103 70-105 mg/dL Normal 01-02-2018 [facility] ([id number]) Comment: Performed By: #### GLUX #### Unless otherwise noted, all testing performed by [facility] [address] [place], [place] [address] CLIA: [id number] Architect Intern: Ismael vines M.D. chest (one view only) on 2018-01-02 CHEST (ONE VIEW Final Report Normal [facility] ONLY) Accession No: [id number] Performed: Jan 02 2018 1:47P [facility] Examination: CHEST (ONE VIEW ONLY) ([id number]) TECHNIQUE single view of the chest AP portable. COMPARISON: Chest performed 12/15/2017. HISTORY: Seizure. FINDINGS: The lungs are well inflated and clear. The cardiac silhouette, superior mediastinum, and pulmonary vasculature are normal. The visualized osseous structures are normal. There is a lap band in place. The left band angle probably 45 degrees in relationship to the spine. IMPRESSION: 1. No evidence of acute disease in the chest. 2. Lack band in place. The angle of the LAP-BAND measures ap proximately 45 degrees as compared to the spine. Interpreting Physician: LUIS ENRIQUE ROMERO M.D. Trans: n/a : cc: cbc with diff on 02-01-18 Basophils #/vol (Bld) 0.0 0-0.2 K/mcL Normal 01-03-20 [facility] ([id number]) Comment: Performed By: #### CBCDIF ## ## Unless otherwise noted, all testing performed by [facility] [address] [place] [address] CLIA: [id number] Architect Intern: Ismael vines M.D. Basophils/100 WBC (Bld) 0.4 % Normal 2017 [facility] ([id number]) Comment: Performed By: #### CBCDIF ## ## Unless otherwise noted, all testing performed by [place] [address] CLIA: [id number] Architect Intern: Ismael vines M.D. Eosinophils #/vol (Bld) 0.1 0-0.5 K/mcL Normal 2017 [facility] (71244) Comment: Performed By: #### CBCDIF ## ## Unless otherwise noted, all testing performed by [place] [address] CLIA: [id number] Architect Intern: Ismael vines M.D. Eosinophils/100 WBC (Bld) 1.6 % Normal 12-16 [facility] (18665) Comment: Performed By: #### CBCDIF ## ## Unless otherwise noted, all testing performed by [place] [address] CLIA: [id number] Architect Intern: Ismael vines M.D. Erythrocyte distribution 13.6 10.0-14.4 % Normal 01-02 [facility] width Ratio (RBC) [facility] (42740) Comment: Performed By: #### CBCDIF ## ## Unless otherwise noted, all testing performed by [facility] [address] [place] [address] CLIA: [id number] Architect Intern: Ismael vines M.D. Hematocrit Volume 41.9 34.4-44.8 % Normal 01-02-2018 [facility] (64828) Comment: Performed By: #### CBCDIF ## ## Unless otherwise noted, all testing performed by [place] [address] CLIA: [id number] Architect Intern: Ismael vines M.D. Hemoglobin mass conc 14.0 11.6-15.4 g/dL Normal [facility] ([facility]) [facility] (17051) Comment: Performed By: #### CBCDIF ## ## Unless otherwise noted, all testing performed by [place] [address] CLIA: [id number] Architect Intern: Ismael vines M.D. Lymphocytes #/vol (Bld) 2.1 1.0-3.7 K/mcL Normal [address] [facility] (72350) Comment: Performed By: #### CBCDIF ## ## Unless otherwise noted, all testing performed by [place] [address] CLIA: [id number] Architect Intern: Ismael vinse M.D. Lymphocytes/100 WBC (Bld) 29.9 % Normal 12-16 [facility] (50032) Comment: Performed By: #### CBCDIF ## ## Unless otherwise noted, all testing performed by [facility] [address] [place] [address] CLIA: [id number] Architect Intern: Ismael vines M.D. MCH Entitic mass (RBC) 29.7 27.9-33.9 pg Normal 018 [facility] (38337) Comment: Performed By: #### CBCDIF ## ## Unless otherwise noted, all testing performed by [facility] [address] [place] [address] CLIA: [id number] Architect Intern: Ismael vines M.D. MCHC mass conc (RBC) 33.4 33.1-35.1 g/dL Normal 8 [facility] (23988) Comment: Performed By: #### CBCDIF ## ## Unless otherwise noted, all testing performed by [address] [place] [address] CLIA: [id number] Architect Intern: Ismael vines M.D. MCV Entitic volume 89.0 82.6-98.9 FL Normal 01-02-2018 [facility] and (RBC) [facility] (50436) Comment: Performed By: #### CBCDIF ## ## Unless otherwise noted, all testing performed by [facility] [address] [place] [address] CLIA: [id number] Architect Intern: Ismael vines M.D. Monocytes #/vol (Bld) 0.7 0.1-0.6 K/mcL High 01-03-20 18 [facility] (00114) Comment: Performed By: #### CBCDIF ## ## Unless otherwise noted, all testing performed by [facility] [address] [place] [address] CLIA: [id number] Architect Intern: Ismael vines M.D. Monocytes/100 WBC (Bld) 9.7 % Normal 2017 [facility] (01152) Comment: Performed By: #### CBCDIF ## ## Unless otherwise noted, [facility] [address] [place] [address] CLIA: [id number] Architect Intern: Ismael vines M.D. Neutrophils #/vol (Bld) 4.1 1.2-6.9 K/mcL Normal 2017 [facility] (04476) Comment: Performed By: #### CBCDIF ## ## Unless otherwise noted, all testing performed by [facility] [address] [place] [address] CLIA: [id number] Architect Intern: Ismael vines M.D. Platelet mean volume 8.6 7.0-10.6 FL Normal 8 [facility] and Entitic [facility] (Bld) [facility] (75348) Comment: Performed By: #### CBCDIF ## ## Unless otherwise noted, all testing performed by [facility] [address] [place] [address] CLIA: [id number] Architect Intern: Ismael vines M.D. Platelets #/vol (Bld) 100 162-402 K/mcL Low 01-03-20 18 [facility] (25639) Comment: Performed By: #### CBCDIF ## ## Unless otherwise noted, [facility] [address] [place] [address] CLIA: [id number] Architect Intern: Ismael vines M.D. RBC #/vol (Bld) 4.71 3.7-5.0 M/mcL Normal 01-02-2018 [facility] (99325) Comment: Performed By: #### CBCDIF ## ## Unless otherwise noted, all testing performed by [place] [address] CLIA: [id number] Architect Intern: Ismael vines M.D. Segmented Neut % 58.4 % Normal 01-02-2018 [facility] (78610) Comment: Performed By: #### CBCDIF ## ## Unless otherwise noted, all testing performed by [place] [address] CLIA: [id number] Architect Intern: Ismael vines M.D. WBC #/vol (Bld) 7.0 3.4-10.6 K/mcL Normal 01-02-2018 [facility] (81431) Comment: Performed By: #### CBCDIF ## ## Unless otherwise noted, all testing performed by [place] [address] CLIA: [id number] Architect Intern: Ismael vines M.D. basic metabolic panel on 2018-01-02 Calcium mass conc 8.9 8.4-10.2 mg/dL Normal [facility]-02-2018 [facility] (86211) Comment: Performed By: #### CHEM8, [facility] #### Unless otherwise noted, all testing performed by [facility] [address] [place] [address] CLIA: [id number] Architect Intern: Ismael vines M.D. Chloride molar conc 105 98-108 mmol/L Normal 01-02-2018 [facility] (51663) Comment: Performed By: #### CHEM8, VA LP #### Unless otherwise noted, all testing performed by [facility] [address] [place] [address] CLIA: [id number] Architect Intern: Ismael vines M.D. CO2 molar conc 22 21-32 mmol/L Normal 01-02-2018 [facility] (64433) Comment: Performed By: #### CHEM8, VA LP #### Unless otherwise noted, all testing performed by [facility] [address] [place] [address] CLIA: [id number] Architect Intern: Ismael vines M.D. Creatinine mass conc 1.42 0.40-1.10 mg/dL High 8 [facility] (42700) Comment: Performed By: #### CHEM8, VA LP #### Unless otherwise noted, all testing performed by [facility] [address] [place] [address] CLIA: [id number] Architect Intern: Ismael vines M.D. GFR/1.73 sq M predicted 49 >60 ml/min/1.73sq.m Low 01-02-2018 [facility] and among blacks [facility] (43689) rate/area (S/P/Bld) Comment: Result Comment: Amer ican GFR Calc Performed By: #### CHEM8, VA LP #### Unless otherwise noted, all testing performed by [facility] [address] [place] [address] CLIA: [id number] Architect Intern: Ismael vines M.D. GFR/1.73 sq M predicted 40 >60 ml/min/1.73sq.m Low 01-02-2018 [facility] among non-blacks [facility] vol rate/area (S/P/Bld) (16667) Comment: Result Comment: Non- GFR Calc eGFR is an estimated Glomeru lar Filtration Rate based on the value of the patient's serum creat inine. In outpatients, eGFR should be used as a helpful tool in screeni ng for CKD. In inpatients or patients with acute renal failure, eGFR re presents the GFR at the moment of the draw and should be used with caut ion. Performed By: #### CHEM8, PR LP #### Unless otherwise noted, all testing performed by [facility] [address] [place] [address] CLIA: [id number] Architect Intern: Ismael vines M.D. Glucose mass conc 86 70-99 mg/dL Normal 01-02-2018 [facility] (78166) Comment: Result Comment: This test re sult might be falsely depressed or falsely elevated on samples drawn from patients taking Sulfasalazine and Sulfapyridine. Venipuncture should occur pr ior to taking either of these drugs. Performed By: #### CHEM8, PR LP #### Unless otherwise noted, all testing performed by [facility] [address] [facility]. [place] [address] CLIA: [id number] Architect Intern: Ismael vines M.D. Potassium molar conc 4.2 3.5-5.1 mmol/L Normal 8 [facility] (72703) Comment: Performed By: #### CHEM8, PR LP #### Unless otherwise noted, all testing performed by [facility] [address] [place] [address] CLIA: [id number] Architect Intern: Ismael vines M.D. Sodium molar conc 137 135-145 mmol/L Normal 01-02-2018 [facility] (34294) Comment: Performed By: #### CHEM8, VA LP #### Unless otherwise noted, [facility] [address] [place] [id number] CLIA: [id number] Architect Intern: Ismael vines M.D. Urea nitrogen mass conc 28 8-25 mg/dL High 2017 [facility] (33725) Comment: Performed By: #### CHEM8, VA LP #### Unless otherwise noted, all testing performed by [facility] [address] [facility] [place] [address] CLIA: [id number] Architect Intern: Ismael vines M.D. brain with spect on 2017-09-15 BRAIN WITH SPECT Performed at [facility] 09-15-2017 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 COMPARISON: None available. CLINICAL INDICATION/HISTORY: Tremor. TECHNIQUE: The patient was administered an intravenous dose of 6.0 millicuries of I-123 DaTscan and delayed SPECT imaging of the brain was obtained. The patient was pretreated with Lugol's solution 100 mg in 4 ounces of water, one hour prior to the exam. FINDINGS: There is normal striatal uptake with near symmetric uptake within the putamen and caudate nuclei, bilaterally. IMPRESSION: Normal study. Vital Signs Vital Sign Description Value / Unit Date Location The following section is limited to 5 en tries per type and includes entries from the following time range: 20190301 - [id number] 9. BMI (Body Mass Index) 39.01 kg/m2 09-25-[address] ([address]) BMI (Body Mass Index) 40.11 kg/m2 08-07-[address] ([address]) BMI (Body Mass Index) 33.85 kg/m2 03-16-2019 [facility] (48837) BMI (Body Mass Index) 35.1 kg/m2 03-08-2019 [facility] (90542) BMI (Body Mass Index) 33.96 kg/m2 03-01-2019 [facility] (91241) Body Temperature 98 [degF] 06-18-2020 DQ-Rcbwwpisy-Ru [facility] (11051 ) Body Temperature 98.6 [degF] 03-16-2019 [facility] (432 15) Body Temperature 98.1 [degF] 03-08-2019 [facility] (432 15) Body Temperature 98.01 [degF] 03-01-2019 [facility] (432 15) Body Temperature 98.1 [degF] 11-22-2018 [facility] (432 15) Body weight 78.93 kg 09-25-2019 [facility] [address] ([address]) Body weight 78.61 kg 08-07-2019 [facility] [address] ([address]302) BP Diastolic 88 mm[Hg] 06-18-2020 RU-Qdceojqcz-Xhy [facility] (02509 ) BP Diastolic 92 mm[Hg] 06-18-2020 HW-Osmjxzumi-Jqp [facility] (75557 ) BP Diastolic 72 mm[Hg] 09-25-2019 [facility] [address] (14593) BP Diastolic 70 mm[Hg] 08-07-2019 [facility] [address] (28666) BP Diastolic 79 mm[Hg] 03-16-2019 [facility] (4321 5) BP Systolic 117 mm[Hg] 06-18-2020 ZP-Vhuxeqjzy-Yak [facility] (46350 ) BP Systolic 125 mm[Hg] 06-18-2020 UZ-Onsaikfdw-Qfw [facility] (20929 ) BP Systolic 110 mm[Hg] 09-25-2019 [facility] [address] (12381) BP Systolic 106 mm[Hg] 08-07-2019 [facility] [address] (63433) BP Systolic 138 mm[Hg] 03-16-2019 [facility] (4321 5) BSA (Body Surface Area) 1.67 m2 09-25-2019 [facility] [address] (58780) BSA (Body Surface Area) 1.65 m2 08-07-2019 [facility] [address] (25579) Height 142.24 cm 06-18-2020 PH-Uuuztjvux-Rup [facility] (16773 ) Height 142.24 cm 09-25-2019 [facility] [address] (33860) Height 140 cm 08-07-2019 [facility] [address] (01937) Height 142.2 cm 03-16-2019 [facility] (4321 5) Height 139.7 cm 03-08-2019 [facility] (4321 5) Pulse (Heart Rate) 109 /min 06-18-2020 [facility] (67841 ) Pulse (Heart Rate) 103 /min 06-18-2020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 Addressed: Problem Chest Pain At Rest Objective: Vitals: BP (!) 155/105 (BP Location: Left arm, Patient Position: Sitting) Pulse 85 Ht 4' 11.06 Wt 71.2 kg (157 lb) SpO2 96% BMI 31.65 kg/m? Physical Exam Constitutional: She is oriented to person, place, and time. She appears well- developed and well-nourished. HENT: Head: Normocephalic. Hirsutism Eyes: Conjunctivae are normal. No scleral icterus. Neck: Neck supple. No JVD present. Carotid bruit is not present. No thyromegaly present. Cardiovascular: Normal rate, regular rhythm, S1 normal, S2 normal and normal heart sounds. PMI is not displaced. Exam reveals no gallop and no friction rub. No murmur heard. No carotid bruits Pulmonary/Chest: Breath sounds normal. She has no wheezes. She has no rales. Abdominal: Soft. She exhibits no abdominal bruit. . Musculoskeletal: Normal range of motion. She exhibits no edema. Neurological: She is alert and oriented to person, place, and time. Skin: Skin is warm and dry. No cyanosis. Nails show no clubbing. Psychiatric: Her behavior is normal. Her affect is blunt. Her speech is delayed. Nursing note and vitals reviewed. SNOMED CT(R) 1. Chest pain at rest CHEST PAIN AT REST 2. Essential hypertension ESSENTIAL HYPERTENSION 3. Chronic kidney disease, stage III (moderate) (HCC) CHRONIC KIDNEY DISEASE STAGE 3 Mattie Hayden MD 11/23/2018 in this encounterMansoor Brooke MD - 12/12/2018 12:06 PM EST Subjective Patient ID: Reema Motta is a 43 y.o. female. Chief Complaint Patient presents with ? Hypertension ? Hyperlipidemia ? Sore Throat X 3 days HPI interval visit. Hypertension: Patient has a history of hypertension since 2000. Most recently their condition has been improved . They report no angina, anginal equivalent, palpitations or change in exercise tolerance. not active. Last lab work obtained was 11/17/2018: Comprehensive metabolic panel: Sodium 136. Potassium 3.7. Chloride 108. Bicarb 21. Glucose 103. BUN 18. Creatinine 1.20. Estimated GFR 46. Total bilirubin is 0.5. . Current medications include: Lisinopril 10 mg daily, doxazosin 4 mg tablet in p.m. Apparently today when she was in the clinical research coordinator's office she was told her blood pressure was high she had not taking her medication this morning. Prior to going into see the clinical research coordinator and she is not sure if she took it last night. She did take her blood pressure medication after she got home. Chronic kidney disease: She has a history of chronic kidney disease. She was first diagnosed in 2000. Last lab was 11/17/2018 Metabolic panel: Sodium 136. Potassium 3.7. Chloride 108. Bicarb 21. Avcczgx487. BUN 15. Creatinine 1.0. Estimated GFR 46. Total bili 0.5.. This is improved from prior. Last estimated GFR was 42 on October 06, 2018. Patient has not been tested for albumin in the urine. She isaware of the importance of avoiding all nephrotoxic drugs which include Motrin, Aleve, Advil, Naprosyn, ibuprofen, Nuprin and all other prescription nonsteroidals. Is aware of the importance of adequate hydration. Sore throat: Patient reports sore throat increase in the last 3 days. Denies any true fever or chills. Taking some hrwk-laf-opgsbcj cough and cold medication. She is gargling and using Chloraseptic lozenges. Does not seem to be helping much. She denies any cough or true fever. No shortness of breath. No facial pain. Allergies Allergen Reactions ? Codeine Other (See Comments) Vomiting ? Ct: Iodinated Contrast- Oral And Iv Dye ? Dilaudid [Hydromorphone] ? Erythromycin Unknown ? Iodine And Iodide Containing Products ? Morphine Sulfate Other (See Comments) Vomiting ? Neurontin [Gabapentin] GI Intolerance ? Other ? Phenergan [Promethazine] Other (See Comments) Sick ? Tramadol ? Vicodin [Hydrocodone-Acetaminophen] Other (See Comments) Vomiting ? Zofran [Ondansetron Hcl] Other (See Comments) Vomiting ? Penicillins Rash The following portions of the patient's history were reviewed and updated as appropriate: allergies,current medications, past family history, past medical history, past social history, past surgical history and problem list. Review of Systems Constitutional: Negative for appetite change, chills and fever. History of night sweats HENT: Positive for dental problem. Negative for hearing loss, mouth sores, postnasal drip, rhinorrhea, tinnitus, trouble swallowing and voice change. Describes teeth pain and bleeding gums. Eyes: Negative for pain, discharge and visual disturbance. Respiratory: Negative for cough, chest tightness, shortness of breath and wheezing. Cardiovascular: Negative for chest pain, palpitations and leg swelling. Gastrointestinal: Negative for abdominal distention, abdominal pain, blood in stool, constipation, diarrhea, nausea and vomiting. Endocrine: Positive for cold intolerance and heat intolerance. Negative for polydipsia, polyphagia and polyuria. Genitourinary: Negative for decreased urine volume, difficulty urinating, dysuria, enuresis, flank pain, frequency, hematuria and urgency. Patient describes an odor in her genitourinary area. Musculoskeletal: Positive for joint swelling and myalgias. Negative for arthralgias. Patient describes muscle weakness tingling in the extremities as well as pain and muscle and bone. Skin: Positive for wound. Negative for color change and rash. See history of present illness Allergic/Immunologic: Negative for food allergies. Patient has had a blood transfusion Neurological: Positive for dizziness, seizures and headaches. Negative for tremors, weakness and numbness. History of head injury Hematological: Negative for adenopathy. Bruises/bleeds easily. Psychiatric/Behavioral: Positive for dysphoric mood and sleep disturbance. Negative for hallucinations. The patient is nervous/anxious. She describes eating difficulty. Objective Vitals: 11/22/18 1430 BP: 138/88 BP Location: Right arm Patient Position: Sitting BP Cuff Size: Adult Pulse: 82 Resp: 16 Temp: 98.1 ?F (36.7 ?C) TempSrc: Oral SpO2: 98% Weight: 70.8 kg (156 lb) Height: 4' Estimated body mass index is 31.51 kg/m? as calculated from the following: Height as of this encounter: 4. Weight as of this encounter: 70.8 kg (156 lb). Physical Exam Constitutional: She is oriented to person, place, and time. She appears well- developed and well-nourished. No distress. HENT: Head: Normocephalic and atraumatic. Right Ear: External ear normal. Left Ear: External ear normal. Nose: Nose normal. Mouth/Throat: Oropharynx is clear and moist. No oropharyngeal exudate. Eyes: Pupils are equal, round, and reactive to light. EOM are normal. Right eye exhibits no discharge. Left eye exhibits no discharge. No scleral icterus. Neck: Normal range of motion. Neck supple. No JVD present. No tracheal deviation present. No thyromegaly present. Cardiovascular: Normal rate, regular rhythm and normal heart sounds. No murmur heard. Pulmonary/Chest: Effort normal and breath sounds normal. No stridor. Abdominal: Soft. There is no tenderness. Musculoskeletal: She exhibits no edema or tenderness. Lymphadenopathy: She has no cervical adenopathy. Neurological: She is alert and oriented to person, place, and time. No cranial nerve deficit. Skin: Skin is warm and dry. No rash noted. Psychiatric: She has a normal mood and affect. Her behavior is normal. Judgment and thought content normal. Assessment/Plan: Problem List Items Addressed This Visit Respiratory Viral URI The back of her throat is most consistent with a viral pharyngitis. Most adults sore throats are viral in nature. I do not think that you need an antibiotic. Suggest Cepacol throat lozenges to help with the sore throat. Do not take Motrin, Aleve, ibuprofen or any nonsteroidal. You can take extra strength Tylenol 500 mg 4 times a day as needed for pain or fever. Cardiovascular and Mediastinum Hypertension (Chronic) Believe your blood pressure was elevated at the clinical research coordinator's office today because you had not taking your Cardura as the clinical research coordinator thought. Your blood pressure has decreased since this morning because its time for the lisinopril to have kicked in. We will have used pickup the Cardura that shouldbe waiting for you at your pharmacy. It is a 4 mg size pill. I would like you to break it in half and take a half a pill twice a day that should even out the blood pressure that you have. I will see you back in about 1 month when you are done with the cardiac testing. Relevant Medications lisinopril (PRINIVIL,ZESTRIL) 10 MG tablet doxazosin (CARDURA) 4 MG tablet Genitourinary Chronic kidney disease, stage III (moderate) (HCC) (Chronic) You have had a history of chronic kidney disease since 2000 we discussed this at your first visit with this office in 2016. Because of that we need to take great care with regards to the medicines that we use to control your blood pressure. You also need to make sure that you are drinking adequately and do not get dehydrated. Also you need to make sure that you do not take any medicines like Motrin Aleve Advil or ibuprofen. Kidney function declines with age. Commonest reason for premature declining kidney function is diabetes. 50% of all people on dialysis are there because of poorly controlled diabetes. Next, this causeshypertension. 25% of all people on dialysis of there because of poorly controlled hypertension. There are many other reasons for chronic kidney disease. The remaining total account for the last 25% of the people who are on dialysis. The management of chronic kidney disease involves identification of the reasons behind the premature aging process. Control of blood sugar, blood pressure consistently <130/80, avoidance of all medications that aggravate the kidneys such as Motrin, Aleve, ibuprofen, Naprosyn and all prescription nonsteroidal medications. Renal insufficiency or chronic kidney disease is managed by the management of blood pressure goals consistently below 130/80, and A1c if diabetic consistently below 7.0 under age 70 and consistently below 7.5 over age 70. It is also treated by having the total cholesterol less than 185, and HDL greater than 45 in men and greater than 50 in women. A combined non-HDL less than 100 if possible. Also thediet and lifestyle modifications to have adequate hydration and to maintain a BUN less than 20 as well as regular exercise with a minimum of 150 280 minutes per week at target heart rate. Also recommend the avoidance of all medications that can cause underlying kidney disease. These include nonsteroidals. The nonsteroidal class includes the rewm-mta-jqtmnon medications of Motrin, Advil, Aleve, ibuprofen, Naprosyn as well as all the prescription nonsteroidals. Typically we follow individuals with chronic kidney disease a minimum of 2-3 times a year. As the kidney disease progresses we monitor closer. Typically start with a minimum of twice a year lab work and increase to every 3 months if indicated. Referral to a kidney specialist or cosmetics presser is obtained with sudden declining kidney function, or gradual decline dropping below 30. For any new medications prescribed today, patient was educated about indications for the medication,how to take the medication and potential side effects of the medications. Rishabh Guevara LPN - 11/22/2018 4:15 PM ESTRooming Documentation How often do you need to have someone help you when you read instructions, pamphlets or other written material from your doctor or pharmacy? Health Literacy Patient Response: Every once in awhile Are you experiencing any side effects or adverse reactions to your medications? Patient response: No Do you have any problems taking your medications? Patient Response: No Patient states they do understand their medications Are you taking any ixkb-dln-grbzccp medications or supplements? Patient Response: None Since last being seen in this office, have you seen another healthcare provider? Patient Response: Yes. If yes, where did you see this provider? Dr Noel 2 Herlinda Brambila LPN - 03/01/2019 9:48 AM EDTRooming Documentation How often do you need to have someone help you when you read instructions, pamphlets or other written material from your doctor or pharmacy? Health Literacy Patient Response: Every once in awhile Are you experiencing any side effects or adverse reactions to your medications? Patient response: Yes; seizures Do you have any problems taking your medications? Patient Response: No Patient states they do understand their medications Are you taking any ijbh-gzz-vhrcwhy medications or supplements? Patient Response: None Since last being seen in this office, have you seen another healthcare provider? Patient Response: Yes. If yes, where did you see this provider? bavis ETSNedra orantes CNP - 03/01/2019 8:30 AM EDT Subjective Patient ID: Reema Motta is a 43 y.o. female. Patient is here today for transitional care visit. She was admitted to [facility] 02/21/19 anddischarged 02/24/19. She was discharged with dx: CKD, hyperammonemia, polydipsia, resting tremors, and valproic acid toxicity. At this time I do not have any records from [facility]. Patient has continued to have issues with tremors and word finding. The day she was discharged she vomited up her breakfast and lunch and was still discharged. Once she was home she had a grand mal seizure. She has not had a grand mal seizure in many years, she will occasionally have a peti mal seizure. Last time she followed up with neurology was 02/09/2019. She is off of her Depakote until she follows up with neurology in [facility], Dr. Chopra, her apt is 03/16/2019. At this time the only seizure medication she is on is the Keppra. She is also on Lorazepam 1 mg 4x a day to help with tremors and the seizures. Patient is here with her data management manager and she states they have an assessment on Wednesday to talk aboutAssisted living. At this time she lives with her cousin and is home alone a lot. It is also causing more stress because of declining relationship with her cousin, they are arguing a lot. data management manager is also concerned with patient's medication adherence, she is not sure that patient is managing her medications accurately. Patient states it is not an issue. The following portions of the patient's history were reviewed and updated as appropriate: allergies,current medications, past family history, past medical history, past social history, past surgical history and problem list. Past Medical History: Diagnosis Date ? Acquired thrombocytopenia (HCC) [facility]/Darren Shaikh ? Acute abdominal pain 11/17/2018 [facility] E/R-Ac Gao MD ? Acute bronchitis 12/21/2018 Info Gained From: /[facility] ED report --- Bob Nye MD ? Acute kidney injury (HCC) 05/22/2018 [facility]/Jonatan Chiu DO ? Acute UTI 10/14/2018 [facility] ER/Moi De La Cruz MD ? Anxiety ? Bronchospasm 12/21/2018 Info Gained From: [facility] ED report --- Bob Nye MD ? Calcaneal spur of right foot 2016 Documented on x-ray ? Chronic kidney disease, stage III (moderate) (HCC) 2000 ? Congestive heart failure (CHF) (HCC) [facility]/Darren Shaikh ? Dehydration 12/12/2018 Info Gained From: /[facility] ED --- Shilpa Jensen ? Depression ? Epilepsy (HCC) 08/06/2011 [facility]- Dr. Chopra ? Epilepsy (HCC) 1993 ? Facet degeneration of lumbar region 10/14/2018 [facility]/Moi De La Cruz MD Mild facet degenerative changes seen in the lower lumbar spine ? Fatty liver [facility]/Joe Mendieta MD Mild fibrofatty changes of the liver ? Fluid collection (edema) in the arms, legs, hands and feet 03/09/2018 Dr valentina Chopra ? Gastritis determined by endoscopy 12/29/2016 Dr. GonzalezUttlnb-Jrgcnnnpw-azshkbxkprqfr nonbleeding with biopsy ? Hepatic steatosis [facility]/Heidy Jara MD Mild ? Hiatal hernia 12/29/[address] Lobo grade 4 ? Hypercholesterolemia [facility]/Jonatan Chiu DO ? Hypertension 2000 2000-present ? Insomnia [facility]/Darren Shaikh ? Kidney stone [facility]/Darren Shaikh ? Low back pain 10/14/2018 [facility]/Moi De La Cruz MD ? Lung nodule 12/15/2017 0.5 cm pleural based nodule in right middle lobe. Mild linear atelectasis ? Mitral valve prolapse [facility]/Darren Shaikh ? Rectus diastasis [facility]/Heidy Jara MD Present with small wide necked perumbical ventral containing fat. ? Second degree burn of foot 04/23/2018 Right Foot - [facility] ? Seizure (HCC) [facility]/Moi De La Cruz MD ? Sleep apnea ? Stroke (HCC) 2001 mild ? Tremor ? Upper abdominal pain 12/03/2018 Info Gained From: /[facility] E/R Report --- Murray ALEXIS,Ac Escobar Past Surgical History: Procedure Laterality Date ? Conner pH capsule placement 02/01/2017 Dr. Lobo ? BREAST REDUCTION 2000 bilateral ? EGD 12/29/2016 Dr. Lobo-[facility]-grade 4 hiatal hernia-nonperforating gastritis ? ESOPHAGEAL MANOMETRY 02/01/2017 ? HERNIA REPAIR 06/11/2017 Dr Richards ? INTRAUTERINE DEVICE INSERTION 02/15/2015 Dr. Pennie Meyers [facility]BGY[facility]ai ? Laparoscopic LINX sphincter augmentation with cruroplasty 06/11/2017 Dr. Lobo ? WISDOM TOOTH EXTRACTION Family History Problem Relation Age of Onset ? Dementia Mother ? Hypertension Mother ? Heart disease Mother ? Diabetes Mother Type 2 ? Stroke Mother ? Heart failure Mother ? Seizures Mother ? Parkinson's Mother ? Thyroid disease Father ? Hypertension Father ? Hypothyroidism Father ? GI problems Father ? Seizures Sister ? Hypertension Sister ? Heart disease Sister ? Hypothyroidism Sister ? Anxiety Sister ? Sickle cell anemia Other ? No Known Problems Brother ? Asthma Sister ? Hypertension Sister Social History Tobacco Use ? Smoking status: Never Smoker ? Smokeless tobacco: Never Used Substance Use Topics ? Alcohol use: No ? Drug use: No Patient's Medications New Prescriptions No medications on file Previous Medications BUSPIRONE (BUSPAR) 5 MG TABLET Take 5 mg by mouth daily . DEPAKOTE ER 250 MG 24 HR TABLET TAKE 2 TABLET BY MOUTH EVERY DAY IN THE MORNING AND TAKE 2 TABLETS AT NIGHT DICYCLOMINE (BENTYL) 10 MG CAPSULE Take 10 mg by mouth 4 (four) times a day . DOXAZOSIN (CARDURA) 4 MG TABLET Take 0.5 (one-half) tablet (2 mg total) by mouth 2 (two) times a day . FAMOTIDINE (PEPCID) 40 MG TABLET TAKE 1 (ONE) TABLET (40 MG TOTAL) BY MOUTH DAILY. KEPPRA 750 MG TABLET Take 750 mg by mouth 2 (two) times a day. LORAZEPAM (ATIVAN) 1 MG TABLET TAKE 1 TABLET (1MG) BY ORAL ROUTE 4 TIMES EVERY DAY MIRTAZAPINE (REMERON) 15 MG TABLET TAKE 2 TABLET BY MOUTH EVERY DAY 2 TO 3 HOURS BEFORE BEDTIME PANTOPRAZOLE (PROTONIX) 40 MG TABLET Take 1 (one) tablet (40 mg total) by mouth daily. POTASSIUM CHLORIDE (MICRO-K) 10 MEQ CR CAPSULE TAKE 1 CAPSULE BY MOUTH TWICE A DAY TROKENDI XR 100 MG CP24 CAPSULE Take 1 capsule by mouth daily. VENLAFAXINE (EFFEXOR) 37.5 MG TABLET Take 37.5 mg by mouth every morning. Modified Medications Modified Medication Previous Medication LISINOPRIL (PRINIVIL,ZESTRIL) 10 MG TABLET lisinopril (PRINIVIL,ZESTRIL) 10 MG tablet Take 1 (one) tablet (10 mg total) by mouth daily . Take 1 (one) tablet (10 mg total) by mouth daily. Discontinued Medications No medications on file Allergies Allergen Reactions ? Codeine Other (See Comments) Vomiting ? Ct: Iodinated Contrast- Oral And Iv Dye ? Dilaudid [Hydromorphone] ? Erythromycin Unknown ? Iodine And Iodide Containing Products ? Morphine Sulfate Other (See Comments) Vomiting ? Neurontin [Gabapentin] GI Intolerance ? Other ? Phenergan [Promethazine] Other (See Comments) Sick ? Tramadol ? Vicodin [Hydrocodone-Acetaminophen] Other (See Comments) Vomiting ? Zofran [Ondansetron Hcl] Other (See Comments) Vomiting ? Penicillins Rash Review of Systems Review of Systems Constitutional: Positive for fatigue. Negative for activity change, appetite change, diaphoresis, fever and unexpected weight change. HENT: Negative for hearing loss. Eyes: Negative for visual disturbance. Respiratory: Negative for cough, chest tightness, shortness of breath and wheezing. Cardiovascular: Negative for chest pain, palpitations and leg swelling. Gastrointestinal: Negative for abdominal distention, constipation, diarrhea, nausea and vomiting. Endocrine: Negative for polydipsia, polyphagia and polyuria. Genitourinary: Negative for dysuria and frequency. Musculoskeletal: Positive for arthralgias, gait problem and myalgias. Negative for joint swelling. Neurological: Positive for tremors and seizures. Negative for dizziness and headaches. Hematological: Bruises/bleeds easily. Psychiatric/Behavioral: Positive for decreased concentration. The patient is nervous/anxious. Vitals: 03/01/19 0833 BP: 112/78 BP Location: Left arm Patient Position: Sitting BP Cuff Size: Adult Pulse: 93 Resp: 18 Temp: 98 ?F (36.7 ?C) TempSrc: Oral SpO2: 98% Weight: 68.5 kg (151 lb) Height: 4' 7.91 Body mass index is 33.96 kg/m?. Physical Exam Physical Exam Constitutional: She is oriented to person, place, and time. She appears well- developed and well-nourished. Short stature with short limbs HENT: Right Ear: External ear normal. Left Ear: External ear normal. Nose: Nose normal. Mouth/Throat: Oropharynx is clear and moist and mucous membranes are normal. Eyes: Conjunctivae, EOM and lids are normal. Neck: Normal range of motion and full passive range of motion without pain. No JVD present. Cardiovascular: Normal rate, regular rhythm and normal heart sounds. No murmur heard. Pulmonary/Chest: Effort normal and breath sounds normal. Musculoskeletal: Normal range of motion. Neurological: She is alert and oriented to person, place, and time. She displays tremor. Word finding issues at today's visit Significant tremors Skin: Skin is warm and dry. Psychiatric: She has a normal mood and affect. Her speech is normal and behavior is normal. Assessment/Plan Problem List Items Addressed This Visit Cardiovascular and Mediastinum Hypertension (Chronic) Relevant Medications lisinopril (PRINIVIL,ZESTRIL) 10 MG tablet Other Valproic acid toxicity You have apt with neurologist on 03/16/2019. If you start getting worse at any point you need to go back to the hospital for evaluation. I am going to review all of your hospital records when I get them and will call with any other concerns. No data recorded Goals ? Blood Pressure < 130/80 High blood pressure makes your heart work too hard. It can cause heart attack, stroke and kidney disease. ? Coping and Emotions Coping and Emotions: Manage stress Adapt to lifestyle changes Get support from family / friends ? Medication Adherence Reema is working toward taking medications as directed. If any referrals were placed at today's visit the patient was instructed to call the office if they havn't heard anything about the referral within 2 weeks of today's visit. For any new medications prescribed today, patient was educated about indications for the medication,how to take the medication and potential side effects of the medications. documented in this encounterSNedra orantes CNP - 03/08/2019 9:25 AM EDT Subjective Patient ID: Reema Motta is a 43 y.o. female. Patient is here today for a follow up visit for hospital admission over a week ago. She had a meeting on Wednesday with Pattern Lease Inspector and assisted living and they are waiting to hear back to see if she qualifies to live in the [facility]. Tremors: Patient continues to be off of the Valproic acid until she is seen by Neurology in [facility],Dr. Chopra, her apt is 03/16/2019. She has had no seizures or falls at home. She continues to take 1 mg of Ativan 4x a day to help with tremors, seizures, and anxiety. She states she is having issues with mild numbness/tingling in finger and toes. She states she has also noted some difficulty with swallowing, but only occasionally. She had blurred vision while in the hospital and states that is gettingbetter. She states she has been having an increase in headaches. Pattern Lease Inspector is making notes of all of these symptoms so she can let the neurologist know at her apt. The following portions of the patient's history were reviewed and updated as appropriate: allergies,current medications, past family history, past medical history, past social history, past surgical history and problem list. Past Medical History: Diagnosis Date ? Acquired thrombocytopenia ([facility]) [facility]/Darren Shaikh ? Acute kidney injury ([facility]) 05/22/2018 [facility]/Jonatan Chiu DO ? Anxiety ? Calcaneal spur of right foot 2017 Documented on x-ray ? Chronic kidney disease, stage III (moderate) ([facility]) 2000 ? Congestive heart failure (CHF) ([facility]) [facility]/Darren Shaikh ? Depression ? Epilepsy ([facility]) 08/06/2011 [facility]- Dr. Chopra ? Epilepsy ([facility]) 1993 ? Facet degeneration of lumbar region 10/14/2018 [facility]/Jono ALEXIS, Moi Mild facet degenerative changes seen in the lower lumbar spine ? Fatty liver [facility]/Joe Mendieta MD Mild fibrofatty changes of the liver ? Fluid collection (edema) in the arms, legs, hands and feet 03/09/2018 Dr valentina Chopra ? Gastritis determined by endoscopy 12/29/2016 Dr. GonzalezAhogsm-Vftrxvcqt-[id number] nonbleeding with biopsy ? Hepatic steatosis [facility]/Heidy Jara MD Mild ? Hiatal hernia 12/29/[address] Lobo grade 4 ? Hypercholesterolemia [facility]/Jonatan Chiu DO ? Hypertension 2000 2000-present ? Insomnia [facility]/Darren Shaikh ? Kidney stone [facility]/Darren Shaikh ? Lung nodule 12/15/2017 0.5 cm pleural based nodule in right middle lobe. Mild linear atelectasis ? Mitral valve prolapse [facility]/Darren Shaikh ? Rectus diastasis [facility]/Heidy Jara MD Present with small wide necked perumbical ventral containing fat. ? Second degree burn of foot 04/23/2018 Right Foot - [facility] ? Sleep apnea ? Stroke (HCC) 2000 mild ? Tremor Past Surgical History: Procedure Laterality Date ? Conner pH capsule placement 02/01/2017 Dr. Lobo ? BREAST REDUCTION 2000 bilateral ? EGD 12/29/2016 Dr[facility] L[facility]-grade 4 hiatal hernia-nonperforating gastritis ? ESOPHAGEAL MANOMETRY 02/01/2017 ? HERNIA REPAIR 06/11/2017 Dr Richards ? INTRAUTERINE DEVICE INSERTION 02/15/2015 Dr. Pennie CARTWRIGHT ? Laparoscopic LINX sphincter augmentation with cruroplasty 06/11/2017 Dr. Lobo ? WISDOM TOOTH EXTRACTION Family History Problem Relation Age of Onset ? Dementia Mother ? Hypertension Mother ? Heart disease Mother ? Diabetes Mother Type 2 ? Stroke Mother ? Heart failure Mother ? Seizures Mother ? Parkinson's Mother ? Thyroid disease Father ? Hypertension Father ? Hypothyroidism Father ? GI problems Father ? Seizures Sister ? Hypertension Sister ? Heart disease Sister ? Hypothyroidism Sister ? Anxiety Sister ? Sickle cell anemia Other ? No Known Problems Brother ? Asthma Sister ? Hypertension Sister Social History Tobacco Use ? Smoking status: Never Smoker ? Smokeless tobacco: Never Used Substance Use Topics ? Alcohol use: No ? Drug use: No Patient's Medications New Prescriptions No medications on file Previous Medications BUSPIRONE (BUSPAR) 5 MG TABLET Take 5 mg by mouth daily . DEPAKOTE ER 250 MG 24 HR TABLET TAKE 2 TABLET BY MOUTH EVERY DAY IN THE MORNING AND TAKE 2 TABLETS AT NIGHT DICYCLOMINE (BENTYL) 10 MG CAPSULE Take 10 mg by mouth 4 (four) times a day . DOXAZOSIN (CARDURA) 4 MG TABLET Take 0.5 (one-half) tablet (2 mg total) by mouth 2 (two) times a day . FAMOTIDINE (PEPCID) 40 MG TABLET TAKE 1 (ONE) TABLET (40 MG TOTAL) BY MOUTH DAILY. KEPPRA 750 MG TABLET Take 750 mg by mouth 2 (two) times a day. LISINOPRIL (PRINIVIL,ZESTRIL) 10 MG TABLET Take 1 (one) tablet (10 mg total) by mouth daily . LORAZEPAM (ATIVAN) 1 MG TABLET TAKE 1 TABLET (1MG) BY ORAL ROUTE 4 TIMES EVERY DAY MIRTAZAPINE (REMERON) 15 MG TABLET TAKE 2 TABLET BY MOUTH EVERY DAY 2 TO 3 HOURS BEFORE BEDTIME PANTOPRAZOLE (PROTONIX) 40 MG TABLET Take 1 (one) tablet (40 mg total) by mouth daily. POTASSIUM CHLORIDE (MICRO-K) 10 MEQ CR CAPSULE TAKE 1 CAPSULE BY MOUTH TWICE A DAY TROKENDI XR 100 MG CP24 CAPSULE Take 1 capsule by mouth daily. VENLAFAXINE (EFFEXOR) 37.5 MG TABLET Take 37.5 mg by mouth every morning. Modified Medications No medications on file Discontinued Medications No medications on file Allergies Allergen Reactions ? Codeine Other (See Comments) Vomiting ? Ct: Iodinated Contrast- Oral And Iv Dye ? Dilaudid [Hydromorphone] ? Erythromycin Unknown ? Iodine And Iodide Containing Products ? Morphine Sulfate Other (See Comments) Vomiting ? Neurontin [Gabapentin] GI Intolerance ? Other ? Phenergan [Promethazine] Other (See Comments) Sick ? Tramadol ? Vicodin [Hydrocodone-Acetaminophen] Other (See Comments) Vomiting ? Zofran [Ondansetron Hcl] Other (See Comments) Vomiting ? Penicillins Rash Review of Systems Review of Systems Constitutional: Positive for fatigue. Negative for activity change, appetite change, diaphoresis, fever and unexpected weight change. HENT: Negative for hearing loss. Eyes: Positive for visual disturbance. Respiratory: Negative for cough, chest tightness, shortness of breath and wheezing. Cardiovascular: Negative for chest pain, palpitations and leg swelling. Gastrointestinal: Negative for abdominal distention, constipation, diarrhea, nausea and vomiting. Endocrine: Negative for polydipsia, polyphagia and polyuria. Genitourinary: Negative for dysuria and frequency. Musculoskeletal: Positive for arthralgias, gait problem and myalgias. Negative for joint swelling. Neurological: Positive for tremors and seizures. Negative for dizziness and headaches. Hematological: Bruises/bleeds easily. Psychiatric/Behavioral: Positive for decreased concentration. The patient is nervous/anxious. Vitals: 03/08/19 0903 BP: 109/77 BP Location: Left arm Patient Position: Sitting BP Cuff Size: Adult Pulse: 93 Resp: 18 Temp: 98.1 ?F (36.7 ?C) TempSrc: Oral SpO2: 98% Weight: 68.5 kg (151 lb) Height: 4' 7 Body mass index is 35.1 kg/m?. Physical Exam Physical Exam Constitutional: She is oriented to person, place, and time. She appears well- developed and well-nourished. Short stature with short limbs HENT: Right Ear: External ear normal. Left Ear: External ear normal. Nose: Nose normal. Mouth/Throat: Oropharynx is clear and moist and mucous membranes are normal. Eyes: Conjunctivae, EOM and lids are normal. Neck: Normal range of motion and full passive range of motion without pain. No JVD present. Cardiovascular: Normal rate, regular rhythm and normal heart sounds. No murmur heard. Pulmonary/Chest: Effort normal and breath sounds normal. Musculoskeletal: Normal range of motion. Neurological: She is alert and oriented to person, place, and time. She displays tremor. Word finding issues at today's visit Significant tremors Skin: Skin is warm and dry. Psychiatric: She has a normal mood and affect. Her speech is normal and behavior is normal. Assessment/Plan Problem List Items Addressed This Visit Other Valproic acid toxicity - Primary I am going to recheck some labs that were abnormal while you were in the hospital for valproic acidtoxicity and lactic acidosis. Very important you follow up with Dr. Chopra the neurologist on 03/16/2019. Relevant Orders CBC and Differential (Completed) Comprehensive Metabolic Panel (Completed) TSH with Reflex Free T4 (Completed) Ammonia (Completed) Valproic Acid Level (Completed) Other Visit Diagnoses Hypokalemia Relevant Orders Comprehensive Metabolic Panel (Completed) Thrombocytopenia (HCC) Relevant Orders CBC and Differential (Completed) No data recorded Goals ? Blood Pressure < 130/80 High blood pressure makes your heart work too hard. It can cause heart attack, stroke and kidney disease. ? Coping and Emotions Coping and Emotions: Manage stress Adapt to lifestyle changes Get support from family / friends ? Medication Adherence Reema is working toward taking medications as directed. If any referrals were placed at today's visit the patient was instructed to call the office if they havn't heard anything about the referral within 2 weeks of today's visit. For any new medications prescribed today, patient was educated about indications for the medication,how to take the medication and potential side effects of the medications. documented in this encounterJemma Figueroa RN - 03/17/2019 12:45 PM EDTPhoned Neurology, spoke with Brandy hand off r/t follow up appt. And Rx. Brandy. Follow up appt. 04/19/19 @ 0915 05/03/19 @ 0130. Confirmed Ativan order for 0.5 mg po TID. Most recent PCP, ED/admit notes faxed To Neuro at # [phone] Pre-auth Amandeep approved Mickidi prior auth. received until 0900 on 03/17/19. Neuro has samples for ~ 1 week until pre-auth completed. Leslie will call pt. To notify and schedule follow up. Jemma gutierrez RN - 03/17/2019 12:18 PM EDTPt. Phoned pharmacy states she did not receive the Ativan 1 mg then subsequently described when she was taking 1 mg 2 tablets three times per day. Now taking 0.5 mg po 2 tabs po BID. Last Neuro was trying to lower Ativan dosing from 1 mg po to 0.5 mg po three times. Jemma gutierrez RN - 03/17/2019 9:59 AM EDT Transition of Care for Reema Motta Primary Care Provider Nedra Brewer CNP ? Spoke to Patient Via: Telephone ? Patient was Discharged From [facility] ? Discharge Diagnosis: HTN, anxiety, seizures ? Admission Date: Observation 03/16/19 @ 0630 Discharge Date: 03/16/19 @ 1626 ? Patient Stated Reason for Hospitalization: Turned to change clothes - became dizzy and fell backward - denies loss of consciousness or loss of memory. History of recent ED visits: * 02/24/19 local ED visit / inpt. c/o polydipsia and malaise x 3 weeks. Confusion to surroundings x 2episodes. Stopped Depakote and increased Ativan to 1 mg po 4 x per day * 03/11/19 local ED visit for dizziness and falls d/c to home * 03/15/19 to ED stating seizures. Transferred to [facility]. Describes turned to change her clothes and fell backwards denies loss of consciousness. States current status is now: Speech / thought process slow - normal for patient. Multiple medication discrepancies - addressed in med. Profile. No further falls, but describes quick onset weakness causing her to fall or collapse, but not seizure activity per pt. Component Latest Ref Rng & Units 03/08/2019 03/16/2019 Valproic Acid 50 - 100 mcg/mL 4 (L) <3 (L) Medication Reconciliation: Changes at Discharge Yes levETIRAcetam 1000 MG tablet Commonly known as: KEPPRA Take 1 (one) tablet (1,000 mg total) by mouth 2 (two) times a day . What changed: ? medication strength ? how much to take Stopped at Discharge: Yes DEPAKOTE ER 250 MG 24 hr tablet Generic drug: divalproex pantoprazole 40 MG tablet Commonly known as: PROTONIX Questioning needs refills picked up from pharmacy mirtazapine 15 MG tablet Commonly known as: REMERON TAKE 2 TABLET BY MOUTH EVERY DAY 2 TO 3 HOURS BEFORE BEDTIME potassium chloride 10 MEQ CR capsule Commonly known as: MICRO-K TAKE 1 CAPSULE BY MOUTH TWICE A DAY Medication Reconciliation Review: ? Home Medication List Reviewed: Yes ? Patient has All Needed New/Changed or Previous Home Medications: No refill required pre-auth. x 1 ? Barriers to Taking Medications: Transportation, Forgetting, Lack of understanding, Refills Needed,Other and inconsistent refills ? Patient is taking medications as directed on Hospital After Visit Summary: No ? Contact Information Provided for Future Questions or Concerns about Medications: Yes prescribing physician, Functional Status: ? Patient Status: Slurred Speech, Slow Speech and Status is Pt Norm ? Patient Reported Current Level of Meeting ADLs: Moderate Difficulty, Some Assistance living with family member attempting to allocate assistaed living placement ? Mobility: Walker Wheeled Walker Cane ? Nutrition: Appetite Fair ? Respiratory: WNL ? Bowel Normal Stools ? Bladder No Problems ? Sleep: Sleeping well and Restlessness ? Pain: Presence: None, Control Status: ? Wounds/Drains/Incisions: None Posterior scalp abrasion from fall - no sutures no drainage. ? Checking Blood Sugar, No ? Weight No ? Blood Pressure No Education Discussed: Reportable Symptoms Discussed: Increased SOB or AGUERO and Dizziness or Lightheadedness Discussed Criteria to: When to Call PCP, When to Seek Emergent Care with EMS/911/ED, When to Design Draftsman and As Directed by PHARMACY CLINICAL COORDINATOR/Surgeon/Specialist Additional Information Discussed: Yes Providers/Clinics: Home Health Care Arrangements Initiated: No Follow up with Valentina Chopra MD Specialty: Neurology [address] [place] [address] Future Appointments Date Time Provider Department Center 03/23/2019 1:30 PM CHAYA Oquendo PCP DENISE CARPENTER 06/08/2019 2:00 PM CHAYA Oquendo PCP DENISE CARPENTER Moved into Cousin's house for assistance with medication management Plans on moving to assisted living Yamil Drake unable to contact, Nick , - will not return call. Had appt. With Medicaid, approved. Now trying to address Yamil Drake. Case Manger with Medicaid is attempting to reach out with no answer. Assisted living obtains meds. documented in this encounterJemma Figueroa RN - 03/31/2019 2:44 PM EDT [facility] from [facility] phoned, beginning evaluation for assisted living. Provided with pt. History and struggles including medication management and follow up. Will reach out for update closer to final plan. documented in this encounter Reason for Referral Status Reason Specialty Diagnoses / Referred By Referred To Procedures Contact Contact Authorized Cardiology Diagnoses Essential hypertension Chronic kidney disease, stage III (moderate) (HCC) Chest pain at rest Nedra Brewer CNP [place] [address] [place], [place] [address] [place], [place] Phone: [phone] Phone: Fax: Status Reason Specialty Diagnoses / Referred By Referred To Procedures Contact Contact Pending Review Cardiology Diagnoses Chest pain at rest Mattie Hayden Procedures Echocardiogram complete MD [address] [place] [address] Status Reason Specialty Diagnoses / Referred By Referred To Procedures Contact Contact Pending Review Radiology Diagnoses Chest pain at rest Mattie Hayden Procedures NM Myocardial Perfusion Multiple SPECT MD [address] [place] [id number] Status Reason Specialty Diagnoses / Referred By Contact Refe rred To Contact Procedures Closed Cardiology Diagnoses Essential hypertension Chronic kidney disease, stage III (moderate) (HCC) Chest pain at rest Mattie Chen Janina, [facility] MD [address] [place] [phone] [address] [place] [address] Phone: Fax: Discharge Instructions Meena Alicea RN - 03/16/2019 Seizure: Care Instructions Your Care Instructions Seizures are caused by abnormal patterns of electrical signals in the brain. They are different for each person. Seizures can affect movement, speech, vision, or awareness. Some people have only slight shaking of a hand and do not pass out. Other people may pass out and have violent shaking of the whole body. Some people appear to stare into space. They are awake, but they can't respond normally. Later, they maynot remember what happened. You may need tests to identify the type and cause of the seizures. A seizure may occur only once, or you may have them more than one time. Taking medicines as directedand following up with your doctor may help keep you from having more seizures. The doctor has checked you carefully, but problems can develop later. If you notice any problems or new symptoms, get medical treatment right away. Follow-up care is a huang part of your treatment and safety. Be sure to make and go to all appointments, and call your doctor if you are having problems. It's also a good idea to know your test results and keep a list of the medicines you take. How can you care for yourself at home? ? Be safe with medicines. Take your medicines exactly as prescribed. Call your doctor if you think you are having a problem with your medicine. ? Do not do any activity that could be dangerous to you or others until your doctor says it is safe to do so. For example, do not drive a car, operate machinery, swim, or climb ladders. ? Be sure that anyone treating you for any health problem knows that you have had a seizure and whatmedicines you are taking for it. ? Identify and avoid things that may make you more likely to have a seizure. These may include lack of sleep, alcohol or drug use, stress, or not eating. ? Make sure you go to your follow-up appointment. When should you call for help? Call 911 anytime you think you may need emergency care. For example, call if: ? ? You have another seizure. ? ? You have more than one seizure in 24 hours. ? ? You have new symptoms, such as trouble walking, speaking, or thinking clearly. ?Call your doctor now or seek immediate medical care if: ? ? You are not acting normally. ?Watch closely for changes in your health, and be sure to contact your doctor if you have any problems. Where can you learn more? Log into your personal health record on [email or web address] and enter M769 in the Education box to learn more about Seizure: Care Instructions. Current as of: March 20, 2018 Content Version: 12.0 ? 6532-0076 [employer]. Care instructions adapted under license by your healthcare professional. If you have questions about a medical condition or this instruction, always ask your healthcare professional. [employer] disclaims any warranty or liability for your use of this information. documented in this encounter Additional Source Comments FOR RECORDS PERTAINING TO PATIENTS WHO ARE OR HAVE BEEN ENROLLED IN A CHEMICAL DEPENDENCY/SUBSTANCE ABUSE PROGRAM, SOME INFORMATION MAY BE OMITTED. This clinical summary was aggregated from multiple sources. Caution should be exercised in using it in the provision of clinical care. This summary normalizes information from multiple sources, and as a consequence, information in this document may materially changethe coding, format and clinical context of patient data. In addition, data may be omittedin some cases. CLINICAL DECISIONS SHOULD BE BASED ON THE PRIMARY CLINICAL RECORDS. [facility] provides no warranty or guarantee of the accuracy or completeness of information in this document. UNRECOGNIZED CONTENT PROVIDED BELOW FOR UNRECOGNIZED SECTION INFORMATION SOURCE DATE CREATED AUTHOR AUTHOR'S ORGANIZATIO N 12/06/2018 [facility] DATE CREATED AUTHOR AUTHOR'S ORGANIZATIO N 04/12/2018 [facility] DATE CREATED AUTHOR AUTHOR'S ORGANIZATIO N 04/12/2018 [facility] DATE CREATED AUTHOR AUTHOR'S ORGANIZATIO N 04/22/2018 [facility] DATE CREATED AUTHOR AUTHOR'S ORGANIZATIO N 05/15/2018 [facility] ([place]) DATE CREATED AUTHOR AUTHOR'S ORGANIZATIO N 12/25/2018 [facility] DATE CREATED AUTHOR AUTHOR'S ORGANIZATIO N 05/27/2019 [facility] DATE CREATED AUTHOR AUTHOR'S ORGANIZATIO N 07/20/2019 [facility] DATE CREATED AUTHOR AUTHOR'S ORGANIZATIO N 12/02/2019 [facility] DATE CREATED AUTHOR AUTHOR'S ORGANIZATIO N 12/07/2019 [facility] DATE CREATED AUTHOR AUTHOR'S ORGANIZATIO N 06/19/2020 [employer] UNRECOGNIZED CONTENT PROVIDED BELOW FOR UNRECOGNIZED SECTION Miscellaneous Notes Assessment & Plan Note - Mansoor Brooke MD - 02/20/2018 6:36 AM EDT Associated Problem(s): Obesity, Class I, BMI 30.0-34.9 (see actual BMI)Calorie counting is the basis for all weight loss. Typically weigh or measure everything that you place in your mouth. Pay attention to those things that you think are free. Include the calories associated with anything you drink as well. Most that you can buy is required by law to have information onit which breaks down the caloric values for serving size. Look at the serving size and then the weight or measure of that serving size is how you calculate the calories. Try to get over half of your daily calories in the first half of the day Need to find the time for exercise. Activity is great but exercise is activity with a heart rate into the target Zone. Consider calorie counting. But weight loss is minimal without exercise since the body with turn down the BMI or thermostat over time. Exercise allows you to see the benefit of caloriecontrol. Maximum Heart rate or MHR is defined by 220 - age. Then target heart rate or THR is 65-85% of MHR. Need to allow warmup slowly over 5- 10 minute to prevent going too fast to reach THR. Then exercise interval at THR and allow cool down until at least long term back to the pre exercise hear rate. Thereforif resting heart rate was 70 and your target heart rate was 120. You need to keep moving and work the muscles until you heart rate is below 95 beats per minute. This reduces cramping and the risk of cardiac irritability post exercise. Most weight loss can be obtained best by cycling your calories. By counting the calories and then setting your intake at the minimum needs to maintain your lean body mass you conventional body not to turn down its basal metabolic rate. 80% or more of your total caloric needs are burned due to your basic metabolic rate. So tell your body that you are are dieting and allowing it to turn down your basalmetabolic rate sabotages your ability to lose weight. The way to do this and still lose weight his first start a diet at your minimum needs calculated by year estimated lean body mass. Then the first 4days of every week set your caloric intake to 300-400 gbay per day less. The last 3 days of the week your back to the minimum. This will stop your body from turning down the basal metabolic rate. More than 4 days below the basic minium will have your body trending down how you burn calories. 3500 gaby equals 1 pound and 150 gaby over 30 days below your needs will result in 1-1/2 pounds per month of weight loss or almost 20 pounds per year. Assessment & Plan Note - Mansoor Brooke MD - 01/04/2018 3:16 PM EDT Associated Problem(s): Right flank painIt seems that the pain is most likely due to the ribs and not due to the gallbladder but will make sure no signs of a kidney stone with a gallbladder ultrasoundAssessment & Plan Note - Mansoor Brooke MD - 01/04/2018 3:10 PM EDTAssociated Problem(s): Seizures (HCC) Recent episode of seizures need to continue to follow thru with the recommendation per the neurologist.Assessment & Plan Note - Mansoor Brooke MD - 01/04/2018 3:10 PM EDTAssociated Problem(s): GERD (gastroesophageal reflux disease)Will start you back on Famotidine. The painthat you had behind the sternum might be due to stomach acid and the spasm of the food tubein this encounterAssessment & Plan Note - Mansoor Brooke MD - 05/03/2018 3:17 PM EDTAssociated Problem(s): GERD (gastroesophageal reflux disease)Stable with good control and minimal symptoms with diet and medication.Assessment & Plan Note - Mansoor Brooke MD - 05/03/2018 3:14 PM EDTAssociated Problem(s): Burn, foot, second degree, right, sequelaNo signs of infection. The surface skin appears to be well reattached. No residual blister and no open skin on today's exam. Suggest clean socks and shoes while awake even in the home for the next 3 weeks to allow the skin to recover completely.in this encounterAssessment & Plan Note - Mansoor Brooke MD - 05/19/2018 11:48 AM EDTAssociated Problem(s): Abdominal painThe pain that you have is in 4 different areas. In th earea in the from below the umbilicus in midline as well as a referred component to the left posterior low back and hip. This can be from a bladderinfection and can be in those with problems with the female organ. Then you have pain in the area just below the sternum or breast bone that goes to the mid back just at the level of the bra and this is most consistent with stomach acid. Start the Pantoprazole and you complete the Famotidine. Both at the same time. If the lower belly pain is related to times thatyou are having spotting then you need to bring this to Dr. Cliff san.in this encounterAssessment & Plan Note - Mansoor Brooke MD - 08/14/2018 3:10 PM EDTAssociated Problem(s): History of UTIUrinalysis today is positive for blood and WBCs. We will not start you on an antibiotic today but will obtain a urine culture and treat as a determined by culture and sensitivity results.Assessment & Plan Note - Mansoor Brooke MD - 08/14/2018 3:09 PM EDTAssociated Problem(s): Obesity, Class I, BMI 30.0-34.9 (see actual BMI)Calorie counting is the basis for all weight loss. Typically weigh or measure everything that you place in your mouth. Pay attention to those things that you think are free. Include the calories associated with anything you drink as well. Most that you can buy is required by law to have information onit which breaks down the caloric values for serving size. Look at the serving size and then the weight or measure of that serving size is how you calculate the calories. Try to get over half of your daily calories in the first half of the day Need to find the time for exercise. Activity is great but exercise is activity with a heart rate into the target Zone. Consider calorie counting. But weight loss is minimal without exercise since the body with turn down the BMI or thermostat over time. Exercise allows you to see the benefit of caloriecontrol. Maximum Heart rate or MHR is defined by 220 - age. Then target heart rate or THR is 65-85% of MHR. Need to allow warmup slowly over 5- 10 minute to prevent going too fast to reach THR. Then exercise interval at THR and allow cool down until at least long term back to the pre exercise hear rate. Thereforif resting heart rate was 70 and your target heart rate was 120. You need to keep moving and work the muscles until you heart rate is below 95 beats per minute. This reduces cramping and the risk of cardiac irritability post exercise. Most weight loss can be obtained best by cycling your calories. By counting the calories and then setting your intake at the minimum needs to maintain your lean body mass you conventional body not to turn down its basal metabolic rate. 80% or more of your total caloric needs are burned due to your basic metabolic rate. So tell your body that you are are dieting and allowing it to turn down your basalmetabolic rate sabotages your ability to lose weight. The way to do this and still lose weight his first start a diet at your minimum needs calculated by year estimated lean body mass. Then the first 4days of every week set your caloric intake to 300-400 gaby per day less. The last 3 days of the week your back to the minimum. This will stop your body from turning down the basal metabolic rate. More than 4 days below the basic minium will have your body trending down how you burn calories. 3500 gaby equals 1 pound and 150 gaby over 30 days below your needs will result in 1-1/2 pounds per month of weight loss or almost 20 pounds per year. Assessment & Plan Note - Mansoor Brooke MD - 08/14/2018 3:08 PM EDT Associated Problem(s): HypertensionWith the recent weight loss patient's blood pressure is under excellent control currently 128/86. Will continue current medication.Assessment & Plan Note - Mansoor Brooke MD - 08/14/2018 3:06 PM EDTAssociated Problem(s): GERD (gastroesophageal reflux disease)Patient continues on the pantoprazole 40 mg once a day. Have advised she do so. Might also want to consider following up with the general locator specialist.in this encounterAssessment & Plan Note - Nedra Brewer CNP - 10/12/2018 3:13 PM ESTAssociated Problem(s): Chest [facility] chest pain/left arm pain. Negative troponins and EKG but with the symptoms ofleft arm pain that radiated up into shoulder and down into left breast I think you should see cardiology. With your medical history of CKD, HTN, CHF, and MVP, I think you need to be followed closer by cardiology.Assessment & Plan Note - Nedra Brewer CNP - 10/12/2018 3:12 PM ESTAssociated Problem(s): Chronic kidney disease, stage III (moderate) (HCC)WE are going to decrease your Lisinopril due to decreased kidney function. Going to start you on Cardura 4 mg daily. Make sure you are drinking plenty of fluids. You are getting labs done before your CT on the 10/25/2017 so no reason to check today.Assessment & Plan Note - Nedra Brewer CNP - 10/12/2018 3:08 PM ESTAssociated Problem(s): Hypertension Your blood pressure is elevated today at 133/93, we need to work on getting this down a little. WE are going to switch your medicine around. We are going to decrease the lisinopril due to your decreased kidney function and start you on Cardura 4mg daily. Have the nurses check your BP 3x a week and write it down, we will review this in one month to see if we need to further adjust your medicines.in this encounterAssessment & Plan Note - Mattie Hayden MD - 11/21/2018 7:57 PM ESTAssociated Problem(s): Chest pain at restChest discomfort is atypical. Examination and EKG are unremarkable. Her cardiac risk factors are hypertension, obesity and inactivity. She also has a positive family history states mother had 3 open heart surgeries and a stent. Cholesterol status unknown we will obtainlipid profile today. In light of her moderate risk factor profile and chest pain with intermediate cardiac risk we will proceed with a stress nuclear perfusion study. She had a recent seizure couple months ago so we will do dobutamine. She does have a mild resting tachycardia and is not on beta-blockers. Congestive heart failure?is not aware of this being an issue. No failure on exam. Mitral valve prolapse also we do not have the documentation of this. Will obtain echo. Hypertension during office visits. We are asking the nurses at her residence to check blood pressures a couple times a week. in this encounterAssessment & Plan Note - Mansoor Brooke MD - 11/22/2018 3:38 PM ESTAssociated Problem(s): Viral URIThe back of her throat is most consistent with a viral pharyngitis. Most adults sore throats are viral in nature. I do not think that you need an antibiotic. Suggest Cepacol throat lozenges to help with the sore throat. Do not take Motrin, Aleve, ibuprofen or any nonsteroidal. You can take extra strength Tylenol 500 mg 4 times a day as needed for pain or fever. ssessment & Plan Note - Mansoor Brooke MD - 11/22/2018 3:36 PM ESTAssociated Problem(s): HypertensionBelieve your blood pressure was elevated at the clinical research coordinator's office today because you had not taking your Cardura as the clinical research coordinator thought. Your blood pressure has decreased since this morning because its time for the lisinopril to have kicked in. We will have used pickup the Cardura that should be waiting for you at your pharmacy. It is a 4 mg size pill. I would like you to break it in half andtake a half a pill twice a day that should even out the blood pressure that you have. I will see youback in about 1 month when you are done with the cardiac testing. ssessment & Plan Note - Mansoor Brooke MD - 11/22/2018 3:34 PM ESTAssociated Problem(s): Chronic kidney disease, stage III (moderate) (HCC)You have had a history of chronic kidney disease since 2000 we discussed this at your first visit with this office in 2016. Because of that we need to take great care with regards to the medicines thatwe use to control your blood pressure. You also need to make sure that you are drinking adequately and do not get dehydrated. Also you need to make sure that you do not take any medicines like Motrin Aleve Advil or ibuprofen. Kidney function declines with age. Commonest reason for premature declining kidney function is diabetes. 50% of all people on dialysis are there because of poorly controlled diabetes. Next, this causeshypertension. 25% of all people on dialysis of there because of poorly controlled hypertension. There are many other reasons for chronic kidney disease. The remaining total account for the last 25% of the people who are on dialysis. The management of chronic kidney disease involves identification of the reasons behind the premature aging process. Control of blood sugar, blood pressure consistently <130/80, avoidance of all medications that aggravate the kidneys such as Motrin, Aleve, ibuprofen, Naprosyn and all prescription nonsteroidal medications. Renal insufficiency or chronic kidney disease is managed by the management of blood pressure goals consistently below 130/80, and A1c if diabetic consistently below 7.0 under age 70 and consistently below 7.5 over age 70. It is also treated by having the total cholesterol less than 185, and HDL greater than 45 in men and greater than 50 in women. A combined non-HDL less than 100 if possible. Also thediet and lifestyle modifications to have adequate hydration and to maintain a BUN less than 20 as well as regular exercise with a minimum of 150 280 minutes per week at target heart rate. Also recommend the avoidance of all medications that can cause underlying kidney disease. These include nonsteroidals. The nonsteroidal class includes the [id number] medications of Motrin, Advil, Aleve, ibuprofen, Naprosyn as well as all the prescription nonsteroidals. Typically we follow individuals with chronic kidney disease a minimum of 2-3 times a year. As the kidney disease progresses we monitor closer. Typically start with a minimum of twice a year lab work and increase to every 3 months if indicated. Referral to a kidney specialist or cosmetics presser is obtained with sudden declining kidney function, or gradual decline dropping below 30. in this encounterAssessment & Plan Note - Nedra Brewer CNP - 03/01/2019 9:17 AM EDTAssociated Problem(s): Valproic acid toxicityYou have apt with neurologist on 03/16/2019. If you start getting worse at any point you need to go back to the hospital for evaluation. I am going to review all of your hospital records when I get themand will call with any other concerns. documented in this encounterAssessment & Plan Note - Nedra Brewer CNP - 03/08/2019 9:34 AM EDTAssociated Problem(s): Valproic acid toxicityI am going to recheck some labs that were abnormal while you were in the hospital for valproic acid t oxicity and lactic acidosis. Very important you follow up with Dr. Chopra the neurologist on 03/16/2019. documented in this encounterAshley Barrera - Meena Carter RN - 03/16/2019 3:48 PM EDTThis nurse immediately gave the ativan, 1 mg, IV this morning after withdrawing from Pyxis after having Veronika Al RN witness the waste of the other 1 mg in the vial. Patient was feeling the s/s of a seizure coming and the medication was ordered by Shawnee Richards NP. This medication was pulled fromPyxis per override and Veronika witnessed same. uick Note - Meena Carter RN - 03/16/2019 3:30 PM EDTThis nurse advised patient of imminent discharge. She states that she walks at home and sometimes uses a walker. She has used a bedpan and not been out of bed since arriving at [facility]. She lives with her cousin. She further states that she believes that a family member will be able topick her up from the hospital. This nurse has advised her that her paperwork is being prepared. ssessment & Plan Note - Aleksey Longoria MD - 03/16/2019 1:25 PM EDTAssociated Problem(s): Seizure (HCC)Patient with history of chronic epilepsy. This started back in 1993 presenting with generalized tonic -clonic seizure lasting several minutes in duration with occasional lip biting. No TIA, or stroke. No history of fracture or head injury. No fever or flulike symptoms. Her seizure was controlled with Depakote which was initially prescribed 250 mg 3 times a day and later changed to 500 mg twice a days.This was eventually discontinued February 24, 2019 because of toxicity. She follows with Dr. Gillette from [place]. She was also using Keppra 750 mg BID for at least 3 to 4 years. She was also prescribed Topamax for her seizure and history of migraine although she has not been taking it. CT of the head was unremarkable. She described previous brain MRI and imaging study. She was transferred because of tremors and she has accidentally fell and had a mild blunt head injury. He denies any nausea, vomiting, altered level of consciousness. She ambulates with a walker. Irregular myoclonic jerks. Differential diagnosis include nonepileptic seizures. She denies that her Depakote increases her tremors. Increased dose of Keppra might help with myoclonus. Suggestion: 1. Follow up results of EEG 2. Increase Keppra 750 mg twice a day to 1000 mg twice a day. 3. [place] seizure precautions. 4. Monitor frequency alcohol seizures. 5. Avoid trigger factors or precipitating factors. 6. Follow-up closely with her neurologist, Dr. Gillette I have personally reviewed/visualized the patient's images, as documented above. I have personally reviewed the patient's labs, as listed above. Impression, plan and suggestions was discussed with the patient. Questions and concerns were discussed and addressed. Abiola lazaro: Portions of this chart was created using [employer]self voice recognition software. Occasional wrong-word or sound-like substitutions may have occurred due to inherent limitations of the voice recognition software. Please read the chart carefully and recognize, using context, where the substitutions have occurred. Meena Way RN - 03/16/2019 12:59 PM EDTThis nurse made Shawnee Richards NP aware of the current Valproic Acid level of <3. She verbalized u nderstanding of same and no new orders were given. Meena Way RN - 03/16/2019 12:03 PM EDTMRI screening form completed. Patient states that Dr. Lobo had informed her that she would not be able to have an MRI after the surgery she had for acid reflux. Meena Way RN - 03/16/2019 10:51 AM EDTReport from Lala Ottoer includes that she has requested that Pharmacy retime Buspar and Cardura as patient takes these at bedtime. Meena Way RN - 03/16/2019 9:18 AM EDTThis nurse gave Ativan 1mg per IV STAT per Shawnee Richards to this patient for seizure prevention. Patient reports feeling a little better at 09:19 am. Waste of the other 1mg was witnessed by Veronika Al RN. Meena Way RN - 03/16/2019 9:05 AM EDTEli in Pharmacy has agreed to tube up medications that are related to seizure since this nurse has no access to them. Meena Way RN - 03/16/2019 9:02 AM EDTThis patient has alerted the aide, Jessica that she is feeling jumpy and that she feels a seizure coming. Meena Way RN - 03/16/2019 7:58 AM EDTThis nurse sent CD from [place] with X-Ray information with Mattie from CT per instructions from [facility] to be scanned into patient's record. Meena Way RN - 03/16/2019 7:41 AM EDTPatikelechi's medications prior to admission are present in the med room in a cooler and need to be reviewed with this nurse and patient. There are reportedly (per patient) medications therein that she is allergic to. Per field assembly supervisor, admission is not complete Meena Way RN - 03/16/2019 7:39 AM EDTPlaci is awake and alert, sitting in bed and able to express her needs. She reports that the tremors she is having at bedside report time are her baseline. No seizure activity reported. She also reports that she will be going to [facility] in [place] soon. documented in this encounter UNRECOGNIZED CONTENT PROVIDED BELOW FOR UNRECOGNIZED SECTION Reason for Visit Reason Comments Gastroesophageal Reflux Hypertension Error Reason Comments Follow-up ED 09/22 states stomach feeli ng better, seeking neurologist Dr. Chopra, Follow-up ED 10/02 left shoulder pain states feeling better had falls Reason Comments PRIOR AUTHORIZATION CARDURA Reason Comments Establish Care referred to office by PCP, s /p mian ED x2 for abdominal pain, L radiating shoulder pain Status Reason Specialty Diagnoses / Referred By Contact Refe rred To Contact Procedures Closed Cardiology Diagnoses Essential hypertension Chronic kidney disease, stage III (moderate) (HCC) Chest pain at rest [place], Mattie Chen, PHARMACY CLINICAL COORDINATOR MD [address] [place], [place] [address] [place] [address] Phone: Fax: Reason Comments Hypertension Sore Throat X 3 days Status Reason Specialty Diagnoses / Referred By Referred To Procedures Contact Contact Pending Review Radiology Diagnoses Chest pain at rest Mattie Hayden Procedures NM Myocardial Perfusion Study Single - Stress Only NM Myocardial Perfusion Multiple SPECT MD [address] [place] [address] Reason Comments Transition Of Care Pt reports having to high le nilson depakote D/C at this time, then had a seizure Reason Comments Follow-up seizures reprots no issues o r falls Status Reason Specialty Diagnoses / Procedures Referred By C ontact Referred To Contact Diagnoses Seizure Reason Comments Transition Of Care INitial outreach UNRECOGNIZED CONTENT PROVIDED BELOW FOR UNRECOGNIZED SECTION Procedure Notes Aleksey Longoria MD - 03/16/2019 4:18 PM EDTAssociated Order(s): EEG (STANDARD) [facility] EEG Report Reason for EEG: Seizures. Summary: This is a 16 channel digital EEG recording. There is a moderately well-developed, moderately well-organized background activity with the dominant rhythm of 8 Hz with occasional diffuse 6 to 7 Hz activity. There are intermittent muscle and movement artifacts. Hyperventilation and photic stimulations were not done. The patient became drowsy went to sleep. No clear epileptiform discharges were seen. Impression: This is an abnormal EEG due to presence of intermittent background slowing suggesting a mild degree of generalized nonspecific neurophysiological disturbance. No clear epileptiform discharges or ictal activity was seen. documented in this encounter UNRECOGNIZED CONTENT PROVIDED BELOW FOR UNRECOGNIZED SECTION Consult Notes Aleksey Longoria MD - 03/16/2019 1:33 PM EDTAssociated Order(s): IP CONSULT TO NEUROLOGY Neurology Inpatient Consult [facility] 03/16/2019 Patient: Reema Motta Date of : 1975 (43 y.o.) Referring Provider: Refer to consult order in electronic medical record PCP: Nedra Brewer CNP ASSESSMENT: 43 y.o. female presented to [facility] on 03/16/2019 with seizures. PLAN: Seizure (HCC) Patient with history of chronic epilepsy. This started back in 1993 presenting with generalized tonic-clonic seizure lasting several minutes in duration with occasional lip biting. No TIA, or stroke. No history of fracture or head injury. No fever or flulike symptoms. Her seizure was controlled with Depakote which was initially prescribed 250 mg 3 times a day and later changed to 500 mg twice a days.This was eventually discontinued February 24, 2019 because of toxicity. She follows with Dr. Gillette from [place]. She was also using Keppra 750 mg BID for at least 3 to 4 years. She was also prescribed Topamax for her seizure and history of migraine although she has not been taking it. CT of the head was unr emarkable. She described previous brain MRI and imaging study. She was transferred because of tremors and she has accidentally fell and had a mild blunt head injury. He denies any nausea, vomiting, altered level of consciousness. She ambulates with a walker. Irregular myoclonic jerks. Differential diagnosis include nonepileptic seizures. She denies that her Depakote increases her tremors. Increased dose of Keppra might help with myoclonus. Suggestion: 1. Follow up results of EEG 2. Increase Keppra 750 mg twice a day to 1000 mg twice a day. 3. [place] seizure precautions. 4. Monitor frequency alcohol seizures. 5. Avoid trigger factors or precipitating factors. 6. Follow-up closely with her neurologist, Dr. Gillette I have personally reviewed/visualized the patient's images, as documented above. I have personally reviewed the patient's labs, as listed above. Impression, plan and suggestions was discussed with the patient. Questions and concerns were discussed and addressed. Abiola lazaro: Portions of this chart was created using GoNetYourself voice recognition software. Occasional wrong-word or sound-like substitutions may have occurred due to inherent limitations of the voice recognition software. Please read the chart carefully and recognize, using context, where the substitutions have occurred. Seizure: Resolved Etiology: Pre-existing epilepsy ? Testing: CT Head, EEG ? Labs: CBC, CMP ? Anti-epileptic Medication: Keppra 1 g twice daily. ? Seizure Precautions ? Activity Restrictions: Include NO driving, operating heavy machinery, work at heights, work with hazardous materials/tools, bathing/swimming alone or babysitting for a minimum of 6 months. The patient is NOT to resume any of these activities until released by a physician. ? Eventual Outpatient Follow-up: Dr. Gillette in 3-4 weeks. Answered questions and rediscussed plan at length with Patient. DIAGNOSTIC TESTING SUMMARY: Resulted Testing: (MRI/CT/XR, EEG, EMG, CSF, Cardiac, Labs) SUBJECTIVE: Chief Complaint/Reason for Consult: Seizures. Informant(s): Patient History of Present Illness: Reema Motta is a 43 y.o. female who was admitted because of seizures. Patient was admitted withtremors affecting both upper extremity. She has chronic intermittent twitching of different limbs and face. She described accidentally falling down and hitting the left parietal area. No loss of consciousness or confusion. No dizziness or palpitation. Her last seizure occurred in February 24, 2019. This occurred after she was discharged from [facility] where her Depakote was discontinued because of toxicity. Dr. Gillette knows about this. She continued to take Keppra 750 mg twice a day. She has been on this medication for 3 to 4 years. Previously she was also on Topamax for a short time but was discontinued. She used that medication for headache and seizures. Her first seizure started back in 1993 and described as generalized tonic-clonic lasting several minutes in duration. She was occasionally bite her lips but no incontinence, fracture or head injury. Her seizures has been controlled over the years. Depakote initially prescribed to 50 mg 3 times a day and later changed to 500 mg twice a day. She denies Depakote worsening her tremors. Past medical history include hypertension, gastroesophageal reflux disorder status post banding procedure, anxiety and depression, back pain, and chronic kidney disease. Family history is positive for seizure, her oldest sister. She finished 12th grade. She currently lives with a cousin and planning to transfer to assisted living. No alcohol, tobacco, or recreational drug use. Review of Systems: All systems reviewed and negative except pertinent positives and negatives documented in the Historyof Present Illness (HPI). History: Past Medical History: Diagnosis Date ? Acquired thrombocytopenia ([facility]) [facility]/Darren Shaikh ? Acute kidney injury (HCC) 05/22/2018 [facility]/Jonatan hCiu DO ? Anxiety ? Calcaneal spur of right foot 2017 Documented on x-ray ? Chronic kidney disease, stage III (moderate) ([facility]) 2000 ? Congestive heart failure (CHF) ([facility]) [facility]/Darren Shaikh ? Depression ? Epilepsy ([facility]) 08/06/2011 [facility]- Dr. Chopra ? Epilepsy ([facility]) 1993 ? Facet degeneration of lumbar region 10/14/2018 [facility]/Jono ALEXIS, Saulius Mild facet degenerative changes seen in the lower lumbar spine ? Fatty liver [facility]/Joe Mendieta MD Mild fibrofatty changes of the liver ? Fluid collection (edema) in the arms, legs, hands and feet 03/09/2018 Dr valentina Chopra ? Gastritis determined by endoscopy 12/29/2016 Dr. GuerreroTdyqsh-Mmvqykouh-udiohboktyryu nonbleeding with biopsy ? Hepatic steatosis [facility]/Heidy Jara MD Mild ? Hiatal hernia 12/29/[address] Lobo grade 4 ? Hypercholesterolemia [facility]/Jonatan Chiu DO ? Hypertension 2000 2000-present ? Insomnia [facility]/Darren Shaikh ? Kidney stone [facility]/Darren Shaikh ? Lung nodule 12/15/2017 0.5 cm pleural based nodule in right middle lobe. Mild linear atelectasis ? Mitral valve prolapse [facility]/Darren Shaikh ? Motor seizure ([facility]) 03/16/2019 INFO GAINED FROM: /[facility] ED VISIT --- LOZANO DO,CAREN ? Rectus diastasis [facility]/Heidy Jara MD Present with small wide necked perumbical ventral containing fat. ? Second degree burn of foot 04/23/2018 Right Foot - [facility] ? Sleep apnea ? Stroke ([facility]) 2000 mild ? Tremor Past Surgical History: Procedure Laterality Date ? Conner pH capsule placement 02/01/2017 Dr. Lobo ? BREAST REDUCTION 2000 bilateral ? [facility]nonperforating gastritis ? ESOPHAGEAL MANOMETRY 02/01/2017 ? HERNIA REPAIR 06/11/2017 Dr Richards ? INTRAUTERINE DEVICE INSERTION 02/15/2015 Dr. Pennie CARTWRIGHT ? Laparoscopic LINX sphincter augmentation with cruroplasty 06/11/2017 Dr. Lobo ? WISDOM TOOTH EXTRACTION Social History Socioeconomic History ? Marital status: Spouse name: Not on file ? Number of children: Not on file ? Years of education: Not on file ? Highest education level: Not on file Occupational History ? Not on file Social Needs ? Financial resource strain: Not on file ? Food insecurity: Worry: Not on file Inability: Not on file ? Transportation needs: Medical: Not on file Non-medical: Not on file Tobacco Use ? Smoking status: Never Smoker ? Smokeless tobacco: Never Used Substance and Sexual Activity ? Alcohol use: No ? Drug use: No ? Sexual activity: Not on file Lifestyle ? Physical activity: Days per week: Not on file Minutes per session: Not on file ? Stress: Not on file Relationships ? Social connections: Talks on phone: Not on file Gets together: Not on file Attends zoroastrianism service: Not on file Active member of club or organization: Not on file Attends meetings of clubs or organizations: Not on file Relationship status: Not on file Other Topics Concern ? Not on file Social History Narrative ? Not on file Family History Problem Relation Age of Onset ? Dementia Mother ? Hypertension Mother ? Heart disease Mother ? Diabetes Mother Type 2 ? Stroke Mother ? Heart failure Mother ? Seizures Mother ? Parkinson's Mother ? Thyroid disease Father ? Hypertension Father ? Hypothyroidism Father ? GI problems Father ? Seizures Sister ? Hypertension Sister ? Heart disease Sister ? Hypothyroidism Sister ? Anxiety Sister ? Sickle cell anemia Other ? No Known Problems Brother ? Asthma Sister ? Hypertension Sister Additional History Comments: None Allergies: Codeine; Dilaudid [hydromorphone]; Erythromycin; Iodine and iodide containing products; Morphine sulfate; Neurontin [gabapentin]; Other; Phenergan [promethazine]; Tramadol; Vicodin [hydrocodone-acetaminophen]; Zofran [ondansetron hcl]; and Penicillins HOME Medications: Prior to Admission medications Medication Sig Start Date End Date Taking? Authorizing Provider busPIRone (BUSPAR) 5 MG tablet Take 5 mg by mouth daily . Historical Provider, DEPAKOTE ER 250 mg 24 hr tablet TAKE 2 TABLET BY MOUTH EVERY DAY IN THE MORNING AND TAKE 2 TABLETS AT NIGHT 08/25/16 Historical Provider, dicyclomine (BENTYL) 10 MG capsule Take 10 mg by mouth 4 (four) times a day . 09/22/18 Historical Provider, doxazosin (CARDURA) 4 MG tablet Take 0.5 (one-half) tablet (2 mg total) by mouth 2 (two) times a day. 11/22/18 11/22/19 Mansoor Brooke MD famotidine (PEPCID) 40 MG tablet TAKE 1 (ONE) TABLET (40 MG TOTAL) BY MOUTH DAILY. 09/28/18 Historical Provider, KEPPRA 750 mg tablet Take 750 mg by mouth 2 (two) times a day. 07/29/16 Historical Provider, lisinopril (PRINIVIL,ZESTRIL) 10 MG tablet Take 1 (one) tablet (10 mg total) by mouth daily . 03/01/19 Nedra Brewer CNP LORazepam (ATIVAN) 1 MG tablet TAKE 1 TABLET (1MG) BY ORAL ROUTE 4 TIMES EVERY DAY 07/31/16 Historical Provider, mirtazapine (REMERON) 15 MG tablet TAKE 2 TABLET BY MOUTH EVERY DAY 2 TO 3 HOURS BEFORE BEDTIME 07/21/16 Historical Provider, pantoprazole (PROTONIX) 40 MG tablet Take 1 (one) tablet (40 mg total) by mouth daily. 05/19/18 05/19/19Mansoor Brooke MD potassium chloride (MICRO-K) 10 MEQ CR capsule TAKE 1 CAPSULE BY MOUTH TWICE A DAY 12/26/18 Ivy Parrish PA-C TROKENDI XR 100 mg Cp24 CAPSULE Take 1 capsule by mouth daily. 05/02/18 Historical Provider, venlafaxine (EFFEXOR) 37.5 MG tablet Take 37.5 mg by mouth every morning. 08/03/16 Historical Provider, HOSPITAL Infusions: HOSPITAL Scheduled Medications: ? busPIRone 5 mg Oral Daily ? dicyclomine 10 mg Oral 4x daily ? doxazosin 2 mg Oral BID ? enoxaparin (LOVENOX) injection 40 mg Subcutaneous Daily ? famotidine 20 mg Oral BID ? levETIRAcetam 1,000 mg Oral BID ? lisinopril 10 mg Oral Daily ? mirtazapine 15 mg Oral Nightly ? potassium chloride 20 mEq Oral Daily ? venlafaxine 37.5 mg Oral QA HOSPITAL PRN Medications: senna OBJECTIVE: Physical Examination: BP 138/79 Pulse 73 Temp 98.6 ?F (37 ?C) (Oral) Resp 14 Ht 4' 8 Wt 68.5 kg (151 lb) PyI574% BMI 33.85 kg/m? Patient is awake and alert. Normal development and fairly groomed. Not in distress or pain. Vital signs were reviewed. Neck is supple. No carotid bruits. No meningeal sign. Heart rate and rhythm is regular. No cardiac murmur. Breath sounds are clear bilateral lung giron. Abdomen is soft and nontender. Positive bowel sounds. No pedal edema. Pulses are 2+ symmetrically. No skin rash. Patient is oriented to month, season, year, place, and person. Attention and concentration were intact. Memory is intact. Intact calculation, spelling, concentration, and abstraction. Language is intact. Able to name and repeat. Speech is fluent and is spontaneous. General fund of knowledge is intact. Pupils are 4 mm equally reactive to light. No ptosis, nystagmus, or visual field cuts. Extraocular muscles are intact. Fundus was not adequately visualized. Face is symmetrical and facial sensation is intact. Hearing is grossly intact. Palate moves symmetrical upward. Positive shoulder shrug. Tongue is midline. Gross strength is 5/5. Normal muscle tone and bulk. No muscle fasciculations. Sensory is intact to pinprick, vibration, light touch, and proprioception. Patient with intermittent, irregular, myoclonic jerks including left face and limbs. No tremors. Deep tendon reflexes are 2+ symmetrically in the upper extremity and 3+ symmetrically in the lower limbs. No ankle clonus. Toes are downgoing on plantar stimulation. Finger to nose tests was normal. Toe to finger test was normal. Heel knee to moss test was normal. Short stature. documented in this encounter
--- OUTSIDE RECORDS SUMMARY | 2020-07-30 14:09 | XMS RPT_ITS | CCD ---
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 Performed By: #### IFF ### [address] [address] SEG NEUTROPHIL 3.57 1.20 - 7.00 x10E9/L Normal 10-25-2019 [facility] (75715) Comment: Performed By: #### MDIFF ### [address] [address] lipase on 8 Lipase [Catalytic 39 9 - 82 U/L Normal 10-25-2019 [facility] activity/Vol] [facility] (98951) Comment: Result Comment: Venipuncture immediately after or during the administration of Metamizole may lead to falsely low results. Testing should be performed immediately prior to Metamizole dosing. Q-ynbvvq-e-benzoquinone imin e (metabolite of Acetaminophen) will generate erroneously lo w results in samples for patients that have taken toxic doses of acetaminophen. Performed By: #### LIPAS ### [address] [address] hcg,beta-quant on 2 HCG,BETA-QUANT <2 Normal 10-25-2019 [facility] (88349) Comment: Result Comment: Low-level po sitive HCG [...] usi ng a different test methodology at [facility] than other [facility]. Direct result comparison should only be made within t he same method. REF VALUES NON FEMALE <5 MALES <5 Performed By: #### HCGQU ### [address] [address] comprehensive panel on 2019-10-25 Albumin [Mass/Vol] 4.1 3.4 - 5.0 g/dL Normal 10-25-2019 [facility] (62982) Comment: Performed By: #### CMP ####[address] [address] ALP [Catalytic activity/Vol] 56 33 - 110 U/L Normal 0 10-25-2019 [facility] (00 000) Comment: Performed By: #### CMP ####S [address] [address] ALT [Catalytic activity/Vol] 23 7 - 45 U/L Normal 0 10-25-2019 [facility] (00 000) Comment: Result Comment: Patients graciela ated with Sulfasalazine may generate falsely decreased results fo r ALT. Performed By: #### CMP ####[address] [address] Anion gap [Moles/Vol] 14 10 - 20 mmol/L Normal 10-25-[address] [facility] (40872) Comment: Performed By: #### CMP ####[address] [address] AST [Catalytic activity/Vol] 24 9 - 39 U/L Normal 0 10-25-2019 [facility] (00 000) Comment: Performed By: #### CMP ####[address] [address] Bilirubin [Mass/Vol] 0.4 0.0 - 1.2 mg/dL Normal 0 [facility] (96391) Comment: Performed By: #### CMP ####[address] [address] Calcium [Mass/Vol] 8.7 8.6 - 10.3 mg/dL Normal 10-25-2019 [facility] (85551) Comment: Performed By: #### CMP ####[address] [address] Chloride [Moles/Vol] 100 98 - 107 mmol/L Normal 0 [facility] (05488) Comment: Performed By: #### CMP ####[address] [address] Creatinine [Mass/Vol] 1.23 0.50 - 1.05 mg/dL High 2019 [facility] (00 000) Comment: Performed By: #### CMP ####[address] [address] GFR- AM. 57 >60 mL/min/1.73m2 Abnormal 10-25-2019 [facility] (98869) Comment: Result Comment: CALCULATIONS OF ESTIMATED GFR ARE PERFORMED USING THE MDRD STUDY EQUATIO N FOR THE IDMS-TRACEABLE CREATININE ME THODS. CLIN CHEM 2007;53:766-72 Performed By: #### CMP ####[address] [address] GFR-NON AM. 47 >60 mL/min/1.73m2 Abnormal 2019 [facility] (00 000) Comment: Performed By: #### CMP ####[address] [address] Glucose [Mass/Vol] 96 74 - 99 mg/dL Normal 10-25-2019 [facility] (46342) Comment: Performed By: #### CMP ####[address] [address] HCO3 (Bld) [Moles/Vol] 28 21 - 32 mmol/L Normal 020 [facility] (67757) Comment: Performed By: #### CMP ####[address] [address] Potassium [Moles/Vol] 3.7 3.5 - 5.3 mmol/L Normal 10-25-[address] [facility] (00 000) Comment: Performed By: #### CMP ####[address] [address] Protein [Mass/Vol] 6.3 6.4 - 8.2 g/dL Low 10-25-2019 [facility] (32093) Comment: Performed By: #### CMP ####[address] [address] Sodium [Moles/Vol] 138 136 - 145 mmol/L Normal 10-25-2019 [facility] (77450) Comment: Performed By: #### CMP ####[address] [place] 2648005 Urea nitrogen [Mass/Vol] 12 6 - 23 mg/dL Normal 10-25 [facility] (76587) Comment: Performed By: #### CMP ####[id number] [place] [address] clinical intervention - pharmacy on 2019-10-25 Clinical Pharmacist's Clinical Intervention: Norm al 10-25-2019 [facility] Intervention - Active and Pending Medications: [facility] Morphine Injectable, DOSE = 4 mg IntraVenous Push Once, 25-Oct-2019, Active (79743) Pharmacist intervention: Contacted nurse Type of recommendation: [...] - 5 minutes Electronic Signatures: Odilia Holcomb ([facility]) (Signed 25-Oct-2019 14:15) Authored: Pharmacist's Clinical Intervention Last Updated: 25-Oct-2019 14:15 by Odilia Holcomb ([facility]) chest 1 view on CHEST 1 VIEW Normal 10-25-2019 [facility]: [facility] STUDY: CHEST 1 VIEW; 10/25/2019 2:12 pm INDICATION: shorntess of breath. COMPARISON: 03/22/2019 ACCESSION NUMBER(S): [id number] ORDERING CLINICIAN: TENISHA LANE FINDINGS: CHEST AP [...] distribution 14.0 11.5 - 14.5 % Normal [facility] width (RBC) [Ratio] Health (47304) Comment: Performed By: #### CBCDF ### [address] [address] Hematocrit (Bld) [Volume 41.2 36.0 - 46.0 % Normal [facility] fraction] [facility] (00 000) Comment: Performed By: #### CBCDF ### [address] [address] Hemoglobin (Bld) 14.0 12.0 - 16.0 g/dL Normal 10-25-2019 [facility] [Mass/Vol] [facility] (0 0000) Comment: Performed By: #### CBCDF ### [address] [address] MCHC (RBC) [Mass/Vol] 33.9 32.0 - 36.0 g/dL Normal 2019 [facility] (00 000) Comment: Performed By: #### CBCDF ### [address] [address] MCV (RBC) [Entitic vol] 91 80 - [address] [facility] (61719) Comment: Performed By: #### CBCDF ### [address] [address] Nucleated RBC/100 WBC 0.1 /100 WBC Normal 10-25-19 [facility] (Bld) [Ratio] (74757 ) Comment: Performed By: #### CBCDF ### [address] [address] Platelets (Bld) [#/Vol] 103 150 - 450 x10E9/L Low 2019 [facility] (00 000) Comment: Performed By: #### CBCDF ### [address] [address] RBC (Bld) [#/Vol] 4.55 4.00 - 5.20 x10E12/L Normal 10-25-2019 [facility] (00 000) Comment: Performed By: #### CBCDF ### [address] [address] WBC (Bld) [#/Vol] 7.6 4.4 - 11.3 x10E9/L Normal 10-25-2019 [facility] (86082) Comment: Performed By: #### CBCDF ### [address] [address] DIFFERENTIAL SEE MANUAL DIFF Normal 10-25-2019 [facility] (89670) Comment: Performed By: #### CBCDF ### [address] [address] senior product consultant - procedure visit on 2019-09-25 [employer] - Chief Complaint Normal 09-25-2019 [facility] Procedure Visit (000 00) PT HERE TODAY FOR IUD REMOVAL AND INSERTION OF MIRENA OFFICE SUPPLY. [facility]: [id number] EXP: 06/2021 LOT# [id number] History of Present Illness 44-year-old with abnormal [...] Days ; #: Suffic ient; Refill: 0; SHARELNE = N; Record; Last Updated By: Minerva [...] TAKE 1 TABLET T WICE DAILY; Therapy: [id number] to Recorded Dispense: 0 Days ; #: [...] MG TOT AL) BY MOUTH DAILY; Therapy: 14Hwa7010 to Recorded Rx By: MENDY; Dispense: 30 D ays ; #:30; Refill: 0; SHARLENE = N; Record; Last Updated By: Minerva Hauser; 08/07/2019 10:53:56 AM Keppra 1000 MG Oral Tablet; TAKE 1 TABLET TWICE DAILY; Therapy: 63Vad2501 to Recorded Dispense: 0 Days ; #:60 Tabl et; Refill: 0; SHARLENE = Y; Record; Last Updated By: Salma Montgomery; 05/31/2013 9:56:09 AM Keppra 750 MG Oral Tablet; TAKE 1 TABLET BY MOUTH TWICE A DA Y; Therapy: 40Fag0237 to Recorded Rx By: KEYSHA; Dispense: 30 [...] TAKE 1 TABLET DAILY DIRECTE D; Therapy: 29Ynj6093 to Recorded Dispense: 0 Days ; #:30 Tabl et; Refill: 0; SHARLENE = N; Record; Last Updated By: Salma Montgomery; 05/31/2013 9:56:09 AM LORazepam 1 MG Oral Tablet; TAKE 1 TABLET BY MOUTH FOUR TIME S A DAY; Therapy: 73Ywz9797 to Recorded Rx By: KEYSHA; Dispense: 30 D ays ; #:120; Refill: 0; SHARLENE = N; Record; Last Updated By: Minerva Hauser; 08/07/2019 10:53:56 AM LORazepam 1 MG Oral Tablet; TAKE 1 TABLET EVERY 6 TO 8 HOURS NEEDED; Therapy: 29Wjr0920 to Recorded Dispense: 0 Days ; #: [...] MOUTH EVERY DAY AT SUPPER TIME; Therapy: 25Rap2023 to Recorded Rx By: KEYSHA; Dispense: 30 D ays ; #:30; Refill: 0; SHARLENE = N; Record; Last Updated By: Minerva Hauser; 08/07/2019 10:53:56 AM Potassium Chloride ER 10 MEQ Oral Capsule Extend ed Release; TAKE 1 CAPSULE BY MOUTH TWICE A DAY; Therapy: 89Ksm8564 to Recorded Rx By: MENDY; Dispense: 30 D ays ; #:60; Refill: 0; SHARLENE = N; Record; Last Updated By: Minerva Hauser; 08/07/2019 10:53:56 AM Therems-H Oral Tablet; TAKE 1 TABLET DAILY; Therapy: 48Djn2562 to Recorded Dispense: 0 Days ; #:30 Tabl et; Refill: 0; SHARLENE = N; Record; Last Updated By: Salma Montgomery; 05/31/2013 9:56:09 AM Vitals Vital Signs Recorded: 10Oza8342 10:03AM Kambxack888 Oasksrrry54 Height4 ft 8 in Aowkvu979 lb BMI Xasfemguqh42.01 BSA Calculated1.67 Physical Exam General: None acute [...] 7.5. The Mirena IUD was loaded into merchandising lead and introduced using appropriate technique. Strings trimmed [...] Status: Hold For - Scheduling Requested for: 91Clu1853 Ordered Stat;For: Encounter for removal and reinsertion of intrauterine contraceptive device (IUD); Ordered By: Anel Morgan Performed: Due: [id number] Malpositioned IUD Administered: Mirena (52 MG) 20 [...] Triage - ED Quick Triage: Normal 09-07-2019 [facility] Are You no H ealth (37220) Have You Given In The Last 6 [...] than 3 weeks: no Travel outside of [facility]: no Allergies: yes Patient has homicidal thoughts: [...] Mental Status oriented to own ability (0) Darby Fall Risk Score: 50 Interventions: High Risk [...] Arrival: stretcher Mode of Arrival: ambulance Agency: [facility] ([facility]) Arrival From: assisted living facility ([facility]) Accompanied By: self Language: Spoken Language Preferred: Albanian Reading Language Preferre d: Albanian 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 Teacher Requested: no helper metal hanging was requested MDRO: History of MDRO: no [...] Risk Screen - Preferred Language: Normal 2018 [facility] Adult Emergency Preferred Language: [facility] Preferred Language for Discussing Health Care (patient/desjose nedarrell)Albanian (32608) Advanced Directives: Advance Directive/DNRno Advance Directive Information [...] Learning Preferencesverbal instruction Cultural Considerationsnone Developmental Considerationsnone Sabianist Considerationsnone Learning Assessment (Other Learner): Learning Assessment (Other Learner): Other learner availableno Pressure Injury/TB/Substance: Pressure Injury: Pressure Injury Present on Admissionno Do you have a coughno Substance Use Current or Former 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: 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, 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, Alcohol, Street Drugs Admission Risk Screen: Significant IndicatorsComplete CAGE: CAGE: Is this an injured [place] a [place]/[facility]): no Electronic Signatures: Maria Elena Kramer (JOHN) (Signed 07-Sep-2019 19:29) Authored: Preferred Language, Advanced Directives, Family Vi olence Adult, Learning Assessment (Patient), Learning Assessment (Ot her Learner), Pressure Injury/TB/Substance, CAGE Last Updated: 07-Sep-2019 19:29 by Maria Elena Kramer (JOHN) red cell morphology on 2019-09-07 RBC morphology finding Nom NORMAL Normal [facility] ([facility]) (81142) Comment: Performed By: #### HH #### [address] [place] [address] provider note - ed v2 on 2019-09-07 Provider Note - Provider Note - ED v2: Normal 1 11-07-2018 Zoroastrianism ED v2 Chart Review: [facility] ED NOTES (22212) ED NOTES: The patient was sent from the longterm because of abdomi nal pain. 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 Data Referenced From Triage - ED 07-Sep-2019 19:17 manual differential on 2019-09-07 % EOSINOPHIL 0.0 0.0 - 6.0 % Normal 09-07-2019 Located within [facility] (55239) Comment: Performed By: #### HH #### [address] [address] % SEG NEUTROPHIL 65.0 40.0 - 80.0 % Normal 09-07-2019 [facility] (47995) Comment: Result Comment: Percent diff erential counts (%) should be interpreted in the context of the absolute cell counts (cells/L). Performed By: #### HH #### [address] [address] ANC 3.90 1.20 - 7.70 x10E9/L Normal 09-07-2019 [facility] (88898) Comment: Performed By: #### HH #### [address] [address] BAND NEUTROPHIL 0.06 0.00 - 0.70 x10E9/L Normal 09-07-2019 [facility] (90304) Comment: Performed By: #### HH #### [address] [address] BASOPHIL 0.00 0.00 - 0.10 x10E9/L Normal 09-07-2019 [facility] (50729) Comment: Performed By: #### HH #### [address] [address] EOSINOPHIL 0.00 0.00 - 0.70 x10E9/L Normal 09-07-2019 Located within [facility] (91129) Comment: Performed By: #### HH #### [address] [address] LYMPHOCYTE 1.59 1.20 - 4.80 x10E9/L Normal 09-07-2019 Located within [facility] (88865) Comment: Performed By: #### HH #### [address] [address] MONOCYTE 0.41 0.10 - 1.00 x10E9/L Normal 09-07-2019 [facility] (31229) Comment: Performed By: #### HH #### [address] [address] SEG NEUTROPHIL 3.84 1.20 - 7.00 x10E9/L Normal 09-07-2019 [facility] (32350) Comment: Performed By: #### HH #### [address] [address] Band form neutrophils/100 1.0 0.0 - 5.0 % Normal 08-19 [facility] 350 WBC (Bld) [place] ([address]15) Comment: Ordering Provider: NICKO TORRES [address]15[address] Performed By: #### HH #### [address] [address] Basophils/100 WBC (Bld) 0.0 0.0 - 2.0 % Normal 2018 [facility] 350 [place] ([address]013) Comment: Ordering Provider: NICKO TORRES 94942 Performed By: #### HH #### [address] [address] Lymphocytes/100 WBC (Bld) 27.0 % Normal 08-19 [facility] 350 [place] (57514) Comment: Reference Range: 13.0 - 44.0 Ordering Provider: NICKO TORRES 74094 Performed By: #### HH #### [address] [address] Monocytes/100 WBC (Bld) 7.0 2.0 - 10.0 % Normal 09-07 [facility] 350 [place] (11327) Comment: Ordering Provider: NICKO TORRES 65265 Performed By: #### HH #### [address] [address] lipase, serum on 05-09-21 Lipase [Catalytic 40 9 - 82 U/L Normal 09-07-2019 [facility] 350 activity/Vol] [place] (95113) Comment: Venipuncture immediately aft er or during the administration of Metamizole may lead to falsely low resu lts. Testing should be performed immediately prior to Metamizole dosing. I-mdlzgb-s-benzoquinone imine (metabolite of Acetaminophen) will generate erroneously low results in samples for patients that have taken toxic doses of acetaminophen. Ordering Provider: NICKO TORRES 35266 Result Comment: Venipuncture immediately after or during the administration of Metamizole may lead to falsely low results. Testing should be performed immediately prior to Metamizole dosing. J-qjjzhn-q-benzoquinone imin e (metabolite of Acetaminophen) will generate erroneously lo w results in samples for patients that have taken toxic doses of acetaminophen. Performed By: #### HH #### [address] [address] comprehensive panel on 2019-09-07 Albumin [Mass/Vol] 4.1 3.4 - 5.0 g/dL Normal 09-07-2019 [facility] (21044) Comment: Performed By: #### HH #### [address] [address] ALT [Catalytic activity/Vol] 19 7 - 45 U/L Normal 1 11-07-2018 [facility] (00 000) Comment: Result Comment: Patients graciela ated with Sulfasalazine may generate falsely decreased results fo r ALT. Performed By: #### HH #### [address] [address] AST [Catalytic activity/Vol] 21 9 - 39 U/L Normal 1 11-07-2018 [facility] (00 000) Comment: Performed By: #### HH #### [address] [address] GFR- AM. 46 >60 mL/min/1.73m2 Abnormal 09-07-2019 [facility] (45799) Comment: Result Comment: CALCULATIONS OF ESTIMATED GFR ARE PERFORMED USING THE MDRD STUDY EQUATIO N FOR THE IDMS-TRACEABLE CREATININE ME THODS. CLIN CHEM 2007;53:766-72 Performed By: #### HH #### [address] [address] GFR-NON AM. 38 >60 mL/min/1.73m2 Abnormal 2018 [facility] (00 000) Comment: Performed By: #### HH #### [address] [address] HCO3 (Bld) [Moles/Vol] 32 21 - 32 mmol/L Normal 019 [facility] (81134) Comment: Performed By: #### HH #### [address] [address] ALP [Catalytic 55 33 - 110 U/L Normal 09-07-2019 [facility] 350 activity/Vol] [place] [facility] (89646) Comment: Ordering Provider: NICKO TORRES 23349 Performed By: #### HH #### [address] [address] Anion gap [Moles/Vol] 13 10 - 20 mmol/L Normal 09-07-20 19 [facility] 350 [place] ([address]1988) Comment: Ordering Provider: NICKO TORRES 60747 Performed By: #### HH #### [address] [address] Bilirubin [Mass/Vol] 0.3 0.0 - 1.2 mg/dL Normal 9 [facility] 350 [place] (24863) Comment: Ordering Provider: NICKO TORRES 07818 Performed By: #### HH #### [address] [address] Calcium [Mass/Vol] 9.7 8.6 - 10.3 mg/dL Normal 09-07-2019 [facility] 350 [place] ([address]212) Comment: Ordering Provider: NICKO TORRES 75655 Performed By: #### HH #### [address] [address] Chloride 97 98 - 107 mmol/L below low 09-07-2019 [facility] 350 [Moles/Vol] threshold [place] (214[address]) Comment: Ordering Provider: NICKO TORRES 88804 Performed By: #### HH #### [address] [address] Creatinine 1.47 mg/dL above high 09-07-2019 [facility] 350 [Mass/Vol] threshold [place] (92479) Comment: Reference Range: 0.50 - 1.05 Ordering Provider: NICKO TORRES 53954 Performed By: #### HH #### [address] [address] Glucose [Mass/Vol] 94 74 - 99 mg/dL Normal 09-07-2019 [facility] 350 [place] ([address]117) Comment: Ordering Provider: NICKO TORRES 20508 Performed By: #### HH #### [address] [address] Potassium 4.4 3.5 - 5.3 mmol/L Normal 09-07-2019 [facility] 350 [Moles/Vol] [place] (89317) Comment: Ordering Provider: NICKO TORRES 08272 Performed By: #### HH #### [address] [address] Protein 6.3 6.4 - 8.2 g/dL below low 09-07-2019 [facility] 350 [Mass/Vol] threshold [place] (38031) Comment: Ordering Provider: NICKO TORRES 03632 Performed By: #### HH #### [address] [address] Sodium [Moles/Vol] 138 136 - 145 mmol/L Normal 09-07-2019 [facility] 350 [place] (68214) Comment: Ordering Provider: NICKO TORRES 02121 Performed By: #### HH #### [address] [address] Urea nitrogen 20 6 - 23 mg/dL Normal 09-07-2019 [facility] 350 [Mass/Vol] [place] (89484) Comment: Ordering Provider: NICKO Sanchez Performed By: #### HH #### [address] [address] complete blood count + differential on 2019-09-07 Erythrocyte 15.2 See Below % above high 09-07-2019 [facility] 350 distribution width threshold [place] ([address]) (RBC) [Ratio] Comment: Reference Range: 11.5 - 14.5 Ordering Provider: NICKO Sanchez Hematocrit (Bld) [Volume 38.5 See Below % 09-07 [facility] 350 [place] fraction] (24065) Comment: Reference Range: 36.0 - 46.0 Ordering Provider: NICKO Sanchez Hemoglobin (Bld) 13.1 See Below g/dL 09-07-2019 [facility] 350 [Mass/Vol] [place] (07789) Comment: Reference Range: 12.0 - 16.0 Ordering Provider: NICKO Sanchez MCHC (RBC) [Mass/Vol] 34.0 See Below g/dL 09-07-20 19 [facility] 350 [place] (80141) Comment: Reference Range: 32.0 - 36.0 Ordering Provider: NICKO Sanchez MCV (RBC) [Entitic vol] 91 80 - 100 fL 2018 [facility] 350 [place] (42748) Comment: Ordering Provider: NICKO Sanchez Platelets (Bld) 92 150 - 450 {x10E9/L} below low [facility]-07-[facility] [#/Vol] threshold [place] (25247) Comment: Ordering Provider: NICKO Sanchez RBC (Bld) [#/Vol] 4.25 See Below {x10E12/L} 09-07-2019 [facility] 350 [place] (99654) Comment: Reference Range: 4.00 - 5.20 Ordering Provider: NICKO TORRES [address] WBC (Bld) [#/Vol] 5.9 4.4 - 11.3 {x10E9/L} 09-07-2019 [facility] 350 [place] (91459) Comment: Ordering Provider: NICKO TORRES [address] SEE MANUAL DIFF 09-07-2019 [facility] 350 [place] (67241) Comment: Ordering Provider: NICKO TORRES 89[address] cbc and differential on 2019-09-07 DIFFERENTIAL SEE MANUAL DIFF Normal 09-07-2019 [facility] (08103) Comment: Performed By: #### HH #### [address] [address] Erythrocyte distribution 15.2 11.5 - 14.5 % High [facility] (RBC) [Ratio] Health (89100) Comment: Performed By: #### HH #### [address] [address] Hematocrit (Bld) [Volume 38.5 36.0 - 46.0 % Normal [facility]] [facility] (00 000) Comment: Performed By: #### HH #### [address] [address] Hemoglobin (Bld) 13.1 12.0 - 16.0 g/dL Normal 09-07-2019 [facility] [Mass/Vol] Health (0 0000) Comment: Performed By: #### HH #### [address] [address] MCHC (RBC) [Mass/Vol] 34.0 32.0 - 36.0 g/dL Normal 2018 [facility] (00 000) Comment: Performed By: #### HH #### [address] [address] MCV (RBC) [Entitic vol] 91 80 - [address] [facility] (24255) Comment: Performed By: #### HH #### [address] [address] Platelets (Bld) [#/Vol] 92 150 - 450 x10E9/L Low 2018 [facility] (67298) Comment: Performed By: #### HH #### [address] [address] RBC (Bld) [#/Vol] 4.25 4.00 - 5.20 x10E12/L Normal 09-07-2019 [facility] (00 000) Comment: Performed By: #### HH #### [address] [address] WBC (Bld) [#/Vol] 5.9 4.4 - 11.3 x10E9/L Normal 09-07-2019 [facility] (11072) Comment: Performed By: #### HH #### [address] [address] No panel information on 2019-09-07 Albumin BCP dye 4.1 3.4 - 5.0 g/dL 09-07-2019 [facility] [Mass/Vol] [place] ([address]) Comment: Ordering Provider: NICKO TORRES 26582 ALT With P-5'-P [Catalytic 19 7 - 45 U/L [facility] 350 [place] activity/Vol] ([address] ) Comment: Patients treated with Sulfas alazine may generate falsely decreased results for ALT. Ordering Provider: NICKO TORRES 74401 AST With P-5'-P [Catalytic 21 9 - 39 U/L [facility] 350 [place] activity/Vol] ([address] ) Comment: Ordering Provider: NICKO TORRES [address]806 Basophils (Bld) 0.00 See Below {x10E9/L} 09-07-2019 [facility] [#/Vol] [place] ([address]) Comment: Reference Range: 0.00 - 0.10 Ordering Provider: NICKO TORRES 65838 CO2 [Moles/Vol] 32 21 - 32 mmol/L 09-07-[address] ([facility]) Comment: Ordering Provider: NICKO Sanchez Eosinophils (Bld) 0.00 See Below {x10E9/L} 09-07-2019 [address] [address] [#/Vol] [place] ([facility]) Comment: Reference Range: 0.00 - 0.70 Ordering Provider: NICKO TORRES [address]24 Eosinophils/100 WBC (Bld) 0.0 0.0 - 6.0 % 08-19 [address] ([facility]) Comment: Ordering Provider: NICKO TORRES [address]36 Lymphocytes (Bld) 1.59 See Below {x10E9/L} 09-07-2019 [address] [address] [#/Vol] [place] ([facility]) Comment: Reference Range: 1.20 - 4.80 Ordering Provider: NICKO Sanchez Monocytes (Bld) 0.41 See Below {x10E9/L} 09-07-2019 [address] [address] [#/Vol] [place] ([facility]) Comment: Reference Range: 0.10 - 1.00 Ordering Provider: NICKO TORRES 33614 Segmented neutrophils/100 65.0 See Below % 08-19 [address] [address] WBC (Bld) [place] ([facility]) Comment: Reference Range: 40.0 - 80.0 Percent differential counts (%) should be interpreted in the context o f the absolute cell counts (cells/L). Ordering Provider: NICKO Guadarrama03 3.84 See Below {x10E9/L} 09-07-[address] ([facility]) Comment: Reference Range: 1.20 - 7.00 Ordering Provider: NICKO TORRES 69507 46 >60 {mL/min/1.73m2} Abnormal 09-07-[address] ([facility]) Comment: CALCULATIONS OF ESTIMATED GF R ARE PERFORMED USING THE MDRD STUDY EQUATION FOR THE IDMS-TRACEABLE CREAT ININE METHODS. CLIN CHEM 2007;53:766-72 Ordering Provider: NICKO TORRES 40259 38 >60 {mL/min/1.73m2} Abnormal 09-07-[address] ([address]) Comment: Ordering Provider: NICKO TORRES 10817 0.06 See Below {x10E9/L} 09-07-[address] ([address]) Comment: Reference Range: 0.00 - 0.70 Ordering Provider: NICKO TORRES 56101 NORMAL 09-07-[address] ([address]) Comment: Ordering Provider: NICKO GIANNI TORRES 74201 3.90 See Below {x10E9/L} 09-07-[address] ([address]) Comment: Reference Range: 1.20 - 7.70 Ordering Provider: NICKO TORRES 04846 knee cmplt, 4 or more views on 2019-08-21 KNEE CMPLT, 4 OR Normal 9 [facility] MORE VIEWS Patient Name: [facility] ([id number]) STUDY: KNEE; COMPLT, 4 OR MORE VIEWS;Left; 08/20/2019 10:00 pm INDICATION: fall. COMPARISON: None. ACCESSION NUMBER(S): [id number] ORDERING CLINICIAN: TENISHA LANE FINDINGS: Four views left knee. No acute fracture or malalignment. Bones appear normally min eralized. No significant degenerative changes. No knee effusion. Soft tissues are within normal limits. IMPRESSION: Normal left knee radiography. Electronically signed by: HEIDY JARA MD No panel information on 2019-08-21 XR Knee 4 Interpreted by: HEIDY [place] 2018 [facility] 350 views INO JARA08/20/19 [place] ([address]) 22:23MRN: [id number] Name: [facility] REEMA STUDY:KNEE; COMPLT, 4 OR MORE VIEWS;Left; 08/20/2019 10:00 pm INDICATION:fall. COMPARISON:None. ORDERING CLINICIAN:TENISHA LANE FINDINGS:Four views left knee. No acute fracture or malalignment. Bones appear normally mineralized.No significant degenerative changes. No knee effusion. Soft tissuesare within normal limits. IMPRESSION:Normal left knee radiography. 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 Language: Spoken Language Preferred: Albanian Reading Language Preferre d: Albanian PRIMARY ASSESSMENT ABCD Normal Findings: airway open and patent PAST MEDICAL HISTORY Immunization History: Last Known Tetanus Immunization: Less than 5 years TRAVEL HISTORY Travel Exposure History: NO travel to [facility] in the past 30 days Past Medical History: Past Medical History Reviewedyes hypertension: Past Medical History, Active major depressive disorder: Past Medical History, Active anxiety: Past Medical History, Active epileptic seizure: Past Medical History, Active Electronic Signatures: Megan Linton (RN) (Signed 20-Aug-2019 21:11) Authored: Triage, Past Medical History Last Updated: 20-Aug-2019 21:11 by Megan Linton (RN) risk screen - adult emergency on 2019-08-20 Risk Screen - Preferred Language: Normal 2018 [facility] Adult Emergency Preferred Language: [facility] Preferred Language for Discussing Health Care (patient/desig nee)Albanian ([id number]) Advanced Directives: Advance Directive/DNRno Family Violence Adult: Abuse Screen: Are you or have you been threatened or abused physically, em otionally, or sexually by anyoneno Learning Assessment (Patient): Learning Assessment (Patient): Patient is Able to be Assessed for Learningyes Factors Influencing Readiness to Learnmotivation to learn Factors that Impact Ability to Learnnone Devices/Methods Used to Communicatenone Learning Preferencesaudio Cultural Considerationsnone Developmental Considerationsnone Sabianist Considerationsnone Learning Assessment (Other Learner): Learning Assessment (Other Learner): Other learner availableno Pressure Injury/TB/Substance: Pressure Injury: Pressure Injury Present on Admissionno Do you have a coughno Substance Use Current or Former 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: 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, 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, Alcohol, Street Drugs Admission Risk Screen: Significant IndicatorsComplete CAGE: CAGE: Is this an injured patient at a Trauma Center (JOSÉ LUIS/[place]): no Electronic Signatures: Megan Linton (JOHN) (Signed 20-Aug-2019 21:45) Authored: Preferred Language, Advanced Directives, Family Vi olence Adult, Learning Assessment (Patient), Learning Assessment (Ot her Learner), Pressure Injury/TB/Substance, CAGE Last Updated: 20-Aug-2019 21:45 by Megan Linton (RN) provider note - ed v2 on 2019-08-20 Provider Note - Provider Note - ED v2: Normal 1 10-20-2018 [facility] ED v2 Chart Review: [facility] ED NOTES (81650) ED NOTES: HPI: [facility] and just prior to arrival she [...] and oriented x4 , GCS 15 , quill machine tender II-XII grossly intact. 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 Patient discharged back to longterm faci lity. The CAT scan of your [...] patient: no Electronic Signatures: Tenisha Lane I (SUPERVISOR DRYING-FURNITURE DETAILER) (Signed 20-Aug-2019 22:33) Authored: Provider Note - ED v2 Last Updated: 20-Aug-2019 22:[address] I (SUPERVISOR DRYING-FURNITURE DETAILER) References: 1. Data Referenced From Triage - ED 20-Aug-2019 21:02 ct head wo contrast on 2019-08-20 CT HEAD WO Normal 08-20-2019 [facility]: [facility] ([id number] STUDY: CT HEAD WO CONTRAST; CT C-SPINE WO CONTRAST;; 08/20/2019 9:58 pm INDICATION: fall. COMPARISON: 03/18/[address] cervical spine from 03/16/2019. ACCESSION NUMBER(S): [id number]; [id number] ORDERING CLINICIAN: TENISHA LANE TECHNIQUE: Noncontrast CT [...] 08-20-[facility] ([id number]) STUDY: CT HEAD WO CONTRAST; CT C-SPINE WO CONTRAST;; 08/20/2019 9:58 pm INDICATION: fall. COMPARISON: 03/18/[address] cervical spine from 03/16/2019. ACCESSION NUMBER(S): [id number]; [id number] ORDERING CLINICIAN: TENISHA LANE TECHNIQUE: Noncontrast CT [...] Head Interpreted by: HEIDY [place] [address] [facility] J[facility] ([id number]) contrast 22:22MRN: [id number] Name: BRITTNYMAGALYJOSEE REEMA STUDY:CT HEAD WO CONTRAST; CT C-SPINE WO CONTRAST;; 08/20/2019 9:58 pm INDICATION:fall. COMPARISON:03/18/[address] cervical spine from 03/16/2019. [id number] ORDERING CLINICIAN:TENISHA LANE TECHNIQUE:Noncontrast CT exams of [...] 08/20/19 22:22 Comment: Ordering Provider: TENISHA Mckoy [address]10[address] Interpreted by: HEIDY MCKINNON Normal 08-20-[address]08/20/19 22:22MRN: Jaspal [id number] Name: REEMA MOTTA STUDY:CT HEAD WO CONTRAST; CT C-SPINE WO CONTRAST;; 08/20/2019 9:58 pm INDICATION:fall. COMPARISON:03/18/[address] cervical spine from 03/16/2019. [id number] ORDERING CLINICIAN:TENISHA LANE TECHNIQUE:Noncontrast CT exams of [...] 08/20/19 22:22 Comment: Ordering Provider: TENISHA Mckoy 88607 senior product consultant - office visit on 2019-08-07 [employer] - Chief Complaint Normal 08-07-2019 [employer] Office Visit (11435) PT HERE TODAY FOR US RESULTS History [...] TABLET BY MOUTH TWICE A DAY; Therapy: [id number] to Recorded Rx By: KEYSHA; Dispense: 30 [...] MG TOT AL) BY MOUTH DAILY; Therapy: [id number] to Recorded Rx By: MENDY; Dispense: 30 D ays ; #:30; Refill: 0; SHARLENE = N; Record; Last Updated By: Minerva Hauser; 08/07/2019 10:53:56 AM Keppra 750 MG Oral Tablet; TAKE 1 TABLET BY MOUTH TWICE A DA Y; Therapy: [id number] to Recorded Rx By: KEYSHA; Dispense: 30 [...] MOUTH FOUR TIME S A DAY; Therapy: 10Pmx1535 to Recorded Rx By: KEYSHA; Dispense: 30 [...] MOUTH EVERY DAY AT SUPPER TIME; Therapy: 21Obz6319 to Recorded Rx By: KEYSHA; Dispense: 30 D ays ; #:30; Refill: 0; SHARLENE = N; Record; Last Updated By: Minerva Hausre; 08/07/2019 10:53:56 AM Potassium Chloride ER 10 MEQ Oral Capsule Extend ed Release; TAKE 1 CAPSULE BY MOUTH TWICE A DAY; Therapy: 36Hxc1233 to Recorded Rx By: MENDY; Dispense: 30 D ays ; #:60; Refill: 0; SHARLENE = N; Record; Last Updated By: Minerva Hauser; 08/07/2019 10:53:56 AM Vitals Vital Signs Recorded: 07Aug2019 11:01AM Oxcwrggs598 Fvliltjus76 Height4 ft 7.12 in Jutlod449 lb 4.83 oz BMI Pgghsvpetn23.11 BSA Calculated1.65 Physical Exam General: None acute distress Eye: Intraocular movements are intact HEENT: Normocephalic Respiratory: Respirations are nonlabored Gastrointestinal: Nondistended Musculoskeletal: Normal range of motion Neurologic: Alert and orientedx3 Psychiatric: Cooperative appropriate mood and affect. Results/Data Ultrasound Pelvis Transabdom inal With Kbgnnqetwham58Pfl9767 10:44AMAAnel adkins Test NameResultFlagReference Ultrasound Pelvis Transabdominal With Transvaginal(Report) Interpreted by: TIFFANIE PARK 08/03/19 22:49 Patient Name: REEMA MOTTA STUDY: US PELVIS TRANSABDOMINAL WITH TRANSVAGINAL; 08/03/2019 10:44 am INDICATION: PELVIC PAIN. COMPAR BRIGIDA: None. ACCESSION NUMBER (S): [id number] ORDERING CLINICIAN: ANEL MORGAN TECHNIQUE: Transabdominal and [...] [Volume 36.5 36.0 - 46.0 % Normal [facility] fraction] Health (00 000) Comment: Performed By: #### HH #### [address] [place] [address] Hemoglobin (Bld) 12.3 12.0 - 16.0 g/dL Normal 08-04-2019 [facility] [Mass/Vol] Health (0 0000) Comment: Performed By: #### HH #### [address] [place] [address] pelvis transabdominal with transvagin al on 2019-08-03 US PELVIS Normal 08-03-2019 [facility] WITH Patient Name: BRITTNYJOSEE [facility] TRANSVAGINAL ([id number]) STUDY: US PELVIS TRANSABDOMINAL WITH TRANSVAGINAL; 08/03/2019 10:44 am INDICATION: PELVIC PAIN. COMPARISON: None. ACCESSION NUMBER(S): [id number] ORDERING CLINICIAN: ANEL MORGAN TECHNIQUE: Transabdominal and [...] 2019-08-03 Interpreted by: TIFFANIE NAVARRO Normal 08-03-2019 [facility] 350 OKRVMUSN89/17/19 22:49MRN: Jaspal ([id number]) [id number] [facility] TRIPPORAH STUDY:US PELVIS TRANSABDOMINAL WITH TRANSVAGINAL; [...] PCR. Not Detected Not Detected Normal 2018 [facility] tem (47671) Comment: Result Comment: Xpert CT/NG Assay performance has not been evaluated in patients less than 14 years of age. Performed By: #### [id number] #### MARCUS RemHemo [facility] [place] [address] Gonorrhoeae by PCR Not Detected Not Detected Normal 07-19 [facility] tem (64886) Comment: Result Comment: Xpert CT/NG Assay performance has not been evaluated in patients less than 14 years of age. Performed By: #### [id number] #### MARCUS RemHemo [facility] [place] [id number] ct abdomen/pelvis w/ contrast on 2019-07-05 CT Abdomen/Pelvis w/ Exam Date/Time: Normal [facility] Contrast 07/05/2019 13:33 EDT [facility] Reason for Exam: Sys tem (31424) ABDOMINAL PAIN AND TENDERNESS Report STUDY: CT Abdomen/Pelvis w/ Contrast; 07/05/2019 1:33 pm INDICATION: ABDOMINAL PAIN AND TENDERNESS. COMPARISON: 12/02/2018 ACCESSION NUMBER(S): [id number] ORDERING CLINICIAN: Holden Velasco TECHNIQUE: Contiguous axial [...] [Mass/Vol] 2.0 1.6-2.4 mg/dL Normal 06- 9 [facility] () Comment: Performed By: #### [id number] #### MARCUS JeriHemo [address] [place] [address] egfr on 2019-03-25 GFR/1.73 sq M predicted 50 mL/min/1.73 m2 Normal 0 03-25-2019 [facility] among non-blacks [facility] (47776) (S/P/Bld) [Vol rate/Area] Comment: Order Comment: Order Added b y Discern Expert. Performed By: #### [id number] #### MARCUSShawn WilcoxHemo [address] [place] [address] GFR/1.73 sq M predicted >60 mL/min/{1.73_m2} Normal 03-25-2019 [facility] among non-blacks [facility] (05695) (S/P/Bld) [Vol rate/Area] Comment: Order Comment: Order Added b y Discern Expert. Performed By: #### [id number] #### MARCUSShawn WilcoxHemo [address] [place] [address] bmp on 2019-03-25 Anion gap [Moles/Vol] 10 10-20 mEq/L Normal 03-25-[address] [facility] ( 000) Comment: Performed By: #### [id number] #### MARCUS JeriHemo [facility] [place] [address] Calcium [Mass/Vol] 8.7 8.6-10.3 mg/dL Normal 03-25-2019 [facility] ( 000) Comment: Performed By: #### [id number] #### MARCUSShawn WilcoxHemo [address] [place] [address] Chloride [Moles/Vol] 108 98-107 mEq/L High 9 [facility] (00 000) Comment: Performed By: #### [id number] #### MARCUS RemHemo [facility] [place] [address] CO2 [Moles/Vol] 25.0 21.0-32.0 mEq/L Normal 03-25-2019 [facility] (00 000) Comment: Performed By: #### [id number] #### MARCUS RemHemo [address] [place] [address] Creatinine [Mass/Vol] 1.2 0.5-1.1 mg/dL High 03-25-20 [facility] (00 000) Comment: Performed By: #### [id number] #### MARCUS WilcoxHemo [address] [place] [address] Glucose [Mass/Vol] 97 70-99 mg/dL Normal 03-25-2019 [facility] (45657) Comment: Performed By: #### [id number] #### MARCUS JeriHemo [facility] [place] [address] Potassium [Moles/Vol] 4.5 3.5-5.3 mEq/L Normal 03-25-20 [facility] (00 000) Comment: Performed By: #### [id number] #### MARCUS WilcoxHemo [facility] [place] [address] Sodium [Moles/Vol] 138 136-145 mEq/L Normal 03-25-2019 [facility] (00 000) Comment: Performed By: #### [id number] #### MARCUS JeriHemo [facility] [place] [address] Urea nitrogen [Mass/Vol] 14 6-23 mg/dL Normal 03-25 [facility] (00 000) Comment: Performed By: #### [id number] #### MARCUS JeriHemo [facility] [place] [address] Urea nitrogen/Creatinine 11.7 5.4-30.0 ratio Normal 03-25 [facility] [Mass ratio] [facility] (05956) Comment: Performed By: #### [id number] #### MARCUS JeriHemo [facility] [place] [address] magnesium on 03-24 Magnesium [Mass/Vol] 2.1 1.6-2.4 mg/dL Normal 9 [facility] (00 000) Comment: Performed By: #### [id number] #### MARCUS RemHemo [facility] [place] [address] egfr on 2019-03-24 GFR/1.73 sq M predicted >60 mL/min/{1.73_m2} Normal 03-24-2019 [facility] among non-blacks [facility] (35395) (S/P/Bld) [Vol rate/Area] Comment: Order Comment: Order Added erma Aldana Expert. Performed By: #### [id number] #### MARCUS Kenyoncorky [facility] [place] [address] GFR/1.73 sq M predicted 55 mL/min/1.73 m2 Normal 0 03-24-2019 [facility] among non-blacks [facility] (17096) (S/P/Bld) [Vol rate/Area] Comment: Order Comment: Order Added erma Aldana Expert. Performed By: #### [id number] #### MARCUS JeriKarlo [facility] [place] [address] cbc w/ auto diff on 2019-03-24 Erythrocyte distribution 13.4 11.5-14.5 % Normal 03-24 [facility] width (RBC) [Ratio] Health System (51209) Comment: Performed By: #### [id number] #### MARCUS Kostaso [facility] [place] [address] Hematocrit (Bld) [Volume 36.3 36.0-48.0 % Normal 03-24 [facility] fraction] Health Sys tem (91210) Comment: Performed By: #### [id number] #### MARCUS Kenyono [facility] [place] [address] Hemoglobin (Bld) 12.3 12.0-16.0 G/DL Normal 03-24-2019 [facility] [Mass/Vol] Health [facility] (59380) Comment: Performed By: #### [id number] #### MARCUS WilcoxHemo [facility] [place] [address] MCH (RBC) [Entitic mass] 30.4 27.0-31.0 pg Normal 03-24 [facility] (00 000) Comment: Performed By: #### [id number] #### MARCUS WilcoxHemo [facility] [place] [address] MCHC (RBC) [Mass/Vol] 33.7 33.0-37.0 G/DL Normal 03-24-[address] [facility] (00 000) Comment: Performed By: #### [id number] #### MARCUS WilcoxHemo [facility] [place] [address] MCV (RBC) [Entitic vol] 90.1 78.0-100.0 fL Normal 03-24 [facility] (68402) Comment: Performed By: #### [id number] #### MARCUS WilcoxHemo [address] [place] [address] Platelet mean volume 8.3 7.4-11.[address] [facility] (Bld) [Entitic vol] System (32392) Comment: Performed By: #### [id number] #### MARCUS JeriHemo [facility] [place] [address] Platelets (Bld) [#/Vol] 101 130-400 E3/mcL Low 2018 [facility] (00 000) Comment: Performed By: #### [id number] #### [facility] [address] [place] [address] RBC (Bld) [#/Vol] 4.04 3.90-5.40 E6/mcL Normal 03-24-2019 [facility] (00 000) Comment: Performed By: #### [id number] #### MARCUS JeriHemo [facility] [place] [address] WBC (Bld) [#/Vol] 3.9 3.6-11.0 E3/mcL Normal 03-24-2019 [facility] (00 000) Comment: Performed By: #### [id number] #### MARCUS JeriHemo [facility] [place] [address] bmp on 2019-03-24 Anion gap [Moles/Vol] 9 10-20 mEq/L Low 03-24-[address] [facility] (15542) Comment: Performed By: #### [id number] #### MARCUSShawn WilcoxHemo [facility] [place] [address] Calcium [Mass/Vol] 8.2 8.6-10.3 mg/dL Low 03-24-2019 [facility] (15767) Comment: Performed By: #### [id number] #### MARCUS JeirHemo [facility] [place] [address] Chloride [Moles/Vol] 110 98-107 mEq/L High 9 [facility] () Comment: Performed By: #### [id number] #### MARCUS RemHemo [address] [place] [address] CO2 [Moles/Vol] 23.0 21.0-32.0 mEq/L Normal 03-24-2019 [facility] () Comment: Performed By: #### [id number] #### MARCUS RemHemo [address] [place] [address] Creatinine [Mass/Vol] 1.1 0.5-1.1 mg/dL Normal 03-24-20 [facility] () Comment: Performed By: #### [id number] #### MARCUS RemHemo [address] [place] [address] Glucose [Mass/Vol] 92 70-99 mg/dL Normal 03-24-2019 [facility] (68561) Comment: Performed By: #### [id number] #### MARCUS RemHemo [address] [place] [address] Potassium [Moles/Vol] 4.1 3.5-5.3 mEq/L Normal 03-24-20 [facility] () Comment: Performed By: #### [id number] #### MARCUS RemHemo [address] [place] [address] Sodium [Moles/Vol] 138 136-145 mEq/L Normal 03-24-2019 [facility] () Comment: Performed By: #### [id number] #### MARCUS RemHemo [address] [place] [address] Urea nitrogen [Mass/Vol] 11 6-23 mg/dL Normal 03-24 [facility] ( 000) Comment: Performed By: #### [id number] #### MARCUS RemHemo [address] [place] [address] Urea nitrogen/Creatinine 10.0 5.4-30.0 ratio Normal 03-24 [facility] [Mass ratio] [facility] (31905) Comment: Performed By: #### [id number] #### MARCUS RemHem[address] [address] auto diff on 03-24 Basophils (Bld) [#/Vol] 0.0 0.0-0.2 E3/mcL Normal 2018 [facility] tem (78480) Comment: Order Comment: Order Added b y Discern Expert. Performed By: #### [id number] #### MARCUS [address] [address] Basophils/100 WBC (Bld) 0.1 0.0-2.0 % Normal 2018 [facility] (00 000) Comment: Order Comment: Order Added b y Discern Expert. Performed By: #### [id number] #### [address] [address] Eos Absolute 0.1 0.0-0.7 E3/mcL Normal 03-24-2019 [facility] (18079) Comment: Order Comment: Order Added b y Discern Expert. Performed By: #### [id number] #### MARCUS [address] [address] Eosinophils/100 WBC (Bld) 1.7 0.0-11.0 % Normal [facility] (00 000) Comment: Order Comment: Order Added b y Discern Expert. Performed By: #### [id number] #### MARCUS [address] [address] Lymphocytes (Bld) [#/Vol] 1.3 1.2-3.4 E3/mcL Normal [facility] tem (09380) Comment: Order Comment: Order Added b y Discern Expert. Performed By: #### [id number] #### [address] [address] Lymphocytes/100 WBC (Bld) 33.8 20.0-55.0 % Normal [facility] (30840) Comment: Order Comment: Order Added b y Discern Expert. Performed By: #### [id number] #### [address] [address] Cooper Absolute 0.4 0.0-0.7 E3/mcL Normal 03-24-2019 [facility] (49329) Comment: Order Comment: Order Added erma lizama Discern Expert. Performed By: #### [id number] #### MARCUS WilcoxHemo [address] [place] [address] Monocytes/100 WBC (Bld) 11.3 0.0-10.0 % High 2018 [facility] (00 000) Comment: Order Comment: Order Added b y Discern Expert. Performed By: #### [id number] #### MARCUS RemHemo [address] [place] [address] Neutro Absolute 2.1 1.4-6.5 E3/mcL Normal 03-24-2019 [facility] (66215) Comment: Order Comment: Order Added erma y Discern Expert. Performed By: #### [id number] #### MARCUS JeriHemo [address] [place] [address] Neutro Auto 53.1 37.0-75.0 % Normal 03-24-2019 [facility] (13452) Comment: Order Comment: Order Added erma y Discern Expert. Performed By: #### [id number] #### MARCUS RemHemo [address] [place] [address] zzplt morph on 2018 Platelet morphology finding NORMAL Normal [facility] (d) System (00 000) Comment: Performed By: #### [id number] #### MARCUS RemHemo [address] [place] [address] Platelets (Bld) [#/Vol] DECREASED Normal 2018 [facility] (00 000) Comment: Performed By: #### [id number] #### MARCUS RemHemo [address] [place] [address] xr shoulder complete left on 2019-03-23 XR Shoulder Exam Date/Time: Normal 03-23-2019 [facility] Complete Left 03/23/2019 01:05 EDT Health System Reason for Exam: (00 000) Fall Report STUDY: XR Shoulder Complete Left;; 03/23/2019 1:05 am INDICATION: Fall. COMPARISON: None. ACCESSION NUMBER(S): [id number] ORDERING CLINICIAN: Narcisa Lo FINDINGS: Five views [...] TSH Qn 2.75 0.30-5.60 mcIU/mL Normal 03-23-2019 [facility] (54603) Comment: Performed By: #### [id number] #### MARCUS Luong [address] [place] [address] troponin-i on 03-23 Troponin I.cardiac 0.01 0.00-0.03 ng/mL Normal 03-23-2019 [facility] [Mass/Vol] [facility] stem (05034) Comment: Order Comment: Order Added b y Discern Expert. Performed By: #### [id number] #### MARCUS WilcoxHemo [facility] [place] [address] manual diff on 2018 Anisocytosis Ql (Bld) 1+ Normal 03-23-20 [facility] (09414) Comment: Order Comment: Order Added b y Discern Expert. Performed By: #### [id number] #### MARCUS WilcoxHemo [facility] [place] [address] Basophil Man 0 0-1 % Normal 03-23-2019 [facility] (62390) Comment: Order Comment: Order Added b y Discern Expert. Performed By: #### [id number] #### MARCUSShawn WilcoxHemo [facility] [place] [address] Eosinophils/100 WBC (Bld) 0 0-5 % Normal [facility] (73203) Comment: Order Comment: Order Added b y Discern Expert. Performed By: #### [id number] #### MARCUSShawn WilcoxHemo [facility] [place] [address] Lymphocytes/100 WBC (Bld) 54 14-48 % High [facility] (39792) Comment: Order Comment: Order Added erma Aldana Expert. Performed By: #### [id number] #### MARCUS JeriKarlo [address] [place] [address] Monocyte Man 4 1-11 % Normal 03-23-2019 Located within [facility] (25675) Comment: Order Comment: Order Added erma Aldana Expert. Performed By: #### [id number] #### MARCUSShawn Luong [facility] [place] [id number] RBC morphology finding SEE MORPHOLOGY Normal [facility] ([facility] Health Sys tem (67390) Comment: Order Comment: Order Added erma Aldana Expert. Performed By: #### [id number] #### MARCUS JeriRahul [facility] [place] [address] Segs Man 42 37-75 % Normal 03-23-2019 [facility] (29597) Comment: Order Comment: Order Added erma Aldana Expert. Performed By: #### [id number] #### MARCUS JeriRahul [facility] [place] [address] magnesium on 03-23 Magnesium [Mass/Vol] 2.9 1.6-2.4 mg/dL High 9 [facility] (00 000) Comment: Performed By: #### [id number] #### MARCUS Kostaso [facility] [place] [address] egfr on 2019-03-23 GFR/1.73 sq M predicted >60 mL/min/{1.73_m2} Normal 03-23-2019 [facility] among non-blacks [facility] (68286) (S/P/Bld) [Vol rate/Area] Comment: Order Comment: Order Added b y Discern Expert. Performed By: #### [id number] #### MARCUS JeriHemo [facility] [place] [address] GFR/1.73 sq M predicted 56 mL/min/1.73 m2 Normal 0 03-23-2019 [facility] among non-blacks [facility] (79715) (S/P/Bld) [Vol rate/Area] Comment: Order Comment: Order Added b y Discern Expert. Performed By: #### [id number] #### MARCUS WilcoxHemo [address] [place] [address] cbc w/ auto diff on 2019-03-23 Erythrocyte distribution 13.6 11.5-14.5 % Normal 03-23 [facility] width (RBC) [Ratio] Health System (21815) Comment: Performed By: #### [id number] #### MARCUS WilcoxHemo [facility] [place] [address] Hematocrit (Bld) [Volume 36.9 36.0-48.0 % Normal 03-23 [facility]] Health Sys tem (81486) Comment: Performed By: #### [id number] #### MARCUSShawn Kenyono [facility] [place] [address] Hemoglobin (Bld) 12.2 12.0-16.0 G/DL Normal 03-23-2019 [facility] [Mass/Vol] Health Sy stem (11067) Comment: Performed By: #### [id number] #### MARCUS WilcoxHemo [facility] [place] [address] MCH (RBC) [Entitic mass] 30.1 27.0-31.0 pg Normal 03-23 [facility] (00 000) Comment: Performed By: #### [id number] #### MARCUSShawn WilcoxHemo [address] [place] [address] MCHC (RBC) [Mass/Vol] 33.1 33.0-37.0 G/DL Normal 03-23-[address] [facility] (00 000) Comment: Performed By: #### [id number] #### MARCUSShawn WilcoxHemo [facility] [place] [address] MCV (RBC) [Entitic vol] 91.0 78.0-100.0 fL Normal 03-23 [facility] (13786) Comment: Performed By: #### [id number] #### [facility] RemHemo [facility] [place] [address] Platelet mean volume 8.3 7.4-11.[address] [facility] (Bld) [Entitic vol] System (76954) Comment: Performed By: #### [id number] #### MARCUS JeriHemo [address] [place] [address] Platelets (Bld) [#/Vol] 97 130-400 E3/mcL Low 2018 [facility] (00 000) Comment: Performed By: #### [id number] #### MARCUS JeriHemo [facility] [place] [address] RBC (Bld) [#/Vol] 4.05 3.90-5.40 E6/mcL Normal 03-23-2019 [facility] (00 000) Comment: Performed By: #### [id number] #### MARCUS JeriHemo [facility] [place] [address] WBC (Bld) [#/Vol] 3.0 3.6-11.0 E3/mcL Low 03-23-2019 [facility] (94380) Comment: Performed By: #### [id number] #### MARCUS JeriHemo [facility] [place] [id number] bmp on 2019-03-23 Anion gap [Moles/Vol] 8 10-20 mEq/L Low 03-23-[address] [facility] (92914) Comment: Performed By: #### [id number] #### MARCUS JeriHemo [facility] [place] [address] Calcium [Mass/Vol] 7.8 8.6-10.3 mg/dL Low 03-23-2019 [facility] (93998) Comment: Performed By: #### [id number] #### MARCUS JeriHemo [facility] [place] [address] Chloride [Moles/Vol] 111 98-107 mEq/L High 9 [facility] (00 000) Comment: Performed By: #### [id number] #### MARCUS JeriHemo [address] [place] [address] CO2 [Moles/Vol] 22.0 21.0-32.0 mEq/L Normal 03-23-2019 [facility] (00 000) Comment: Performed By: #### [id number] #### MARCUS RemHemo [facility] [place] [address] Creatinine [Mass/Vol] 1.1 0.5-1.1 mg/dL Normal 03-23-20 [facility] (00 000) Comment: Performed By: #### [id number] #### MARCUS Kenyono [address] [place] [address] Glucose [Mass/Vol] 102 70-99 mg/dL High 03-23-2019 [facility] (01391) Comment: Performed By: #### [id number] #### MARCUS Kenyono [facility] [place] [address] Potassium [Moles/Vol] 3.5 3.5-5.3 mEq/L Normal 03-23-[address] [facility] (00 000) Comment: Performed By: #### [id number] #### MARCUS Luong [facility] [place] [address] Sodium [Moles/Vol] 138 136-145 mEq/L Normal 03-23-2019 [facility] (00 000) Comment: Performed By: #### [id number] #### MARCUS Luong [address] [place] [address] Urea nitrogen [Mass/Vol] 9 6-23 mg/dL Normal 03-23 [facility] (00 000) Comment: Performed By: #### [id number] #### MARCUS Luong [facility] [place] [address] Urea nitrogen/Creatinine 8.2 5.4-30.0 ratio Normal 03-23 [facility] (07890) Comment: Performed By: #### [id number] #### MARCUS Kenyono [facility] [place] [address] .manual abs on 2018 Basophil Abs Man 0.0 0.0-0.2 10x3/ Normal 03-23-[address] [facility] (14016) Comment: Order Comment: Order Added b y Discern Expert. Performed By: #### [id number] #### MARCUS Kenyono [address] [place] [address] Eos Abs Man 0.0 0.0-0.5 10x3/ Normal 03-23-2019 [facility] (27854) Comment: Order Comment: Order Added erma Aldana Expert. Performed By: #### [id number] #### MARCUS Kenyono [address] [place] [address] Lymph Abs Man 1.6 1.2-3.4 10x3/ Normal 03-23-2019 [facility] (25204) Comment: Order Comment: Order Added erma y Discern Expert. Performed By: #### [id number] #### MARCUS WilcoxHemo [address] [place] [address] Cooper Abs Man 0.1 0.0-0.7 10x3/ Normal 03-23-2019 [facility] (82512) Comment: Order Comment: Order Added erma y Katya Expert. Performed By: #### [id number] #### MARCUS Kenyono [address] [place] [address] Segs Abs Man 1.3 1.4-6.5 10x3/ Low 03-23-2019 [facility] (69238) Comment: Order Comment: Order Added erma Aldana Expert. Performed By: #### [id number] #### MARCUS WilcoxHemo [address] [place] [address] xr chest ap portable on 2019-03-22 XR Chest AP Exam Date/Time: Normal 03-22-2019 [facility] Portable 03/22/2019 20:26 EDT H ealt System Reason for Exam: (00 000) Chest pain Report STUDY: XR Chest AP Portable; 03/22/2019 8:26 pm INDICATION: Chest pain. COMPARISON: 12/21/2018 ACCESSION NUMBER(S): [id number] ORDERING CLINICIAN: Xuan Garcia FINDINGS: Single portable [...] Signed by: Lacy Alvarez MD M Technologist: [facility] troponin-i on 03-22 Troponin I.cardiac 0.01 0.00-0.03 ng/mL Normal 03-22-2019 [facility] [Mass/Vol] Health Sy stem (64035) Comment: Performed By: #### [id number] #### MARCUS Kostaso [facility] [place] [address] magnesium on 03-22 Magnesium [Mass/Vol] 1.6 1.6-2.4 mg/dL Normal 9 [facility] (00 000) Comment: Performed By: #### [id number] #### [facility]Shawn [facility] [place] [id number] egfr on 2019-03-22 GFR/1.73 sq M predicted >60 mL/min/{1.73_m2} Normal 03-22-2019 [facility] non-blacks [facility] (77892) (S/P/Bld) [Vol rate/Area] Comment: Order Comment: Order Added b y Discern Expert. Performed By: #### [id number] #### MARCUSShawn WilcoxKarlo [address] [place] [address] GFR/1.73 sq M predicted 52 mL/min/1.73 m2 Normal 0 03-22-2019 [facility] among non-blacks [facility] (98979) (S/P/Bld) [Vol rate/Area] Comment: Order Comment: Order Added b y Discern Expert. Performed By: #### [id number] #### MARCUSShawn WilcoxHemo [facility] [place] [id number] cbc w/ auto diff on 2019-03-22 Erythrocyte distribution 13.5 11.5-14.5 % Normal 03-22 [facility] width (RBC) [Ratio] Health System (20955) Comment: Performed By: #### [id number] #### MARCUSShawn Kenyono [facility] [place] [address] Hematocrit (Bld) [Volume 37.5 36.0-48.0 % Normal 03-22 [facility] fraction] Health Sys tem (46502) Comment: Performed By: #### [id number] #### MARCUS WilcoxHemo [address] [place] [address] Hemoglobin (Bld) 12.8 12.0-16.0 G/DL Normal 03-22-2019 [facility] [Mass/Vol] [facility] Sy stem (45367) Comment: Performed By: #### [id number] #### MARCUS WilcoxHemo [facility] [place] [address] MCH (RBC) [Entitic mass] 30.9 27.0-31.0 pg Normal 03-22 [facility] (00 000) Comment: Performed By: #### [id number] #### MARCUS JeriHemo [facility] [place] [address] MCHC (RBC) [Mass/Vol] 34.1 33.0-37.0 G/DL Normal 03-22-[address] [facility] ( 000) Comment: Performed By: #### [id number] #### MARCUS WilcoxHemo [address] [place] [address] MCV (RBC) [Entitic vol] 90.6 78.0-100.0 fL Normal 03-22 [facility] tem (48640) Comment: Performed By: #### [id number] #### MARCUS JeriHemo [facility] [place] [address] Platelet mean volume 8.3 7.4-11.[address] [facility] (Bld) [Entitic vol] System (21435) Comment: Performed By: #### [id number] #### MARCUS WilcoxHemo [facility] [place] [address] Platelets (Bld) [#/Vol] 113 130-400 E3/mcL Low 2018 [facility] (00 000) Comment: Performed By: #### [id number] #### MARCUS JeriHemo [facility] [place] [address] RBC (Bld) [#/Vol] 4.14 3.90-5.40 E6/mcL Normal 03-22-2019 [facility] (00 000) Comment: Performed By: #### [id number] #### [facility]US [facility] [place] [address] WBC (Bld) [#/Vol] 4.1 3.6-11.0 E3/mcL Normal 03-22-2019 [facility] () Comment: Performed By: #### [id number] #### MARCUS JeriHemo [address] [place] [address] bmp on 2019-03-22 Anion gap [Moles/Vol] 13 10-20 mEq/L Normal 03-22-20 [facility] () Comment: Performed By: #### [id number] #### MARCUS RemHemo [address] [place] [address] Calcium [Mass/Vol] 8.4 8.6-10.3 mg/dL Low 03-22-2019 [facility] (66308) Comment: Performed By: #### [id number] #### MARCUS JeriHemo [address] [place] [address] Chloride [Moles/Vol] 110 98-107 mEq/L High [facility] () Comment: Performed By: #### [id number] #### MARCUS RemHemo [address] [place] [address] CO2 [Moles/Vol] 21.0 21.0-32.0 mEq/L Normal 03-22-2019 [facility] () Comment: Performed By: #### [id number] #### MARCUS JeriHemo [address] [place] [address] Creatinine [Mass/Vol] 1.1 0.5-1.1 mg/dL Normal 03-22-20 [facility] () Comment: Performed By: #### [id number] #### MARCUS RemHemo [address] [place] [address] Glucose [Mass/Vol] 95 70-99 mg/dL Normal 03-22-2019 [facility] (94800) Comment: Performed By: #### [id number] #### MARCUS RemHemo [address] [place] [address] Potassium [Moles/Vol] 4.0 3.5-5.3 mEq/L Normal 03-22-20 [facility] () Comment: Performed By: #### [id number] #### MARCUS Kenyono [address] [place] [address] Sodium [Moles/Vol] 139 136-145 mEq/L Normal 03-22-2019 [facility] () Comment: Performed By: #### [id number] #### MARCUS Kenyon[address] [address] Urea nitrogen [Mass/Vol] 10 6-23 mg/dL Normal 03-22 [facility] () Comment: Performed By: #### [id number] #### MARCUS Kenyon[address] [address] Urea nitrogen/Creatinine 9.1 5.4-30.0 ratio Normal 03-22 [facility] [Mass ratio] [facility] (48685) Comment: Performed By: #### [id number] #### MARCUS [address] [address] auto diff on 03-22 Basophils (Bld) [#/Vol] 0.0 0.0-0.2 E3/mcL Normal 2018 [facility] tem (60997) Comment: Order Comment: Order Added b y Discern Expert. Performed By: #### [id number] #### MARCUS Kenyon[address] [address] Basophils/100 WBC (Bld) 0.4 0.0-2.0 % Normal 2018 [facility] () Comment: Order Comment: Order Added b y Discern Expert. Performed By: #### [id number] #### MARCUS Kenyon[address] [address] Eos Absolute 0.1 0.0-0.7 E3/mcL Normal 03-22-2019 Located within [facility] (04334) Comment: Order Comment: Order Added b y Discern Expert. Performed By: #### [id number] #### MARCUSShawn Kenyon[address] [address] Eosinophils/100 WBC (Bld) 2.0 0.0-11.0 % Normal [facility] ( 000) Comment: Order Comment: Order Added b y Discern Expert. Performed By: #### [id number] #### MARCUS WilcoxHemo [address] [place] [address] Lymphocytes (Bld) [#/Vol] 1.1 1.2-3.4 E3/mcL Low [facility] (00 000) Comment: Order Comment: Order Added b y Discern Expert. Performed By: #### [id number] #### MARCUS Kenyono [address] [place] [address] Lymphocytes/100 WBC (Bld) 27.1 20.0-55.0 % Normal [facility] tem (94983) Comment: Order Comment: Order Added b y Discern Expert. Performed By: #### [id number] #### MARCUS Kenyono [address] [place] [address] Cooper Absolute 0.5 0.0-0.7 E3/mcL Normal 03-22-2019 [facility] (78145) Comment: Order Comment: Order Added b y Discern Expert. Performed By: #### [id number] #### MARCUS Kenyono [address] [place] [address] Monocytes/100 WBC (Bld) 11.0 0.0-10.0 % High 2018 [facility] (00 000) Comment: Order Comment: Order Added b y Discern Expert. Performed By: #### [id number] #### MARCUS Kenyono [address] [place] [address] Neutro Absolute 2.5 1.4-6.5 E3/mcL Normal 03-22-2019 [facility] (60326) Comment: Order Comment: Order Added b y Discern Expert. Performed By: #### [id number] #### MARCUS WilcoxHemo [address] [place] [address] Neutro Auto 59.5 37.0-75.0 % Normal 03-22-2019 [facility] (45756) Comment: Order Comment: Order Added b y Discern Expert. Performed By: #### [id number] #### MARCUS WilcoxHemo [address] [place] [address] ua complete on 2018 Color (U) Yellow Yellow Normal 03-19-2019 [facility] (27831) Comment: Order Comment: Order Added erma Aldana Expert. Performed By: #### [id number] #### MARCUS JeriHemo [address] [place] [address] Glucose (U) [Mass/Vol] Negative Negative mg/dL Normal 019 [facility] tem (63032) Comment: Order Comment: Order Added erma Aldana Expert. Performed By: #### [id number] #### MARCUSShawn WilcoxHemo [address] [place] [address] Ketones Ql (U) Negative Negative Normal 03-19-2019 [facility] (87774) Comment: Order Comment: Order Added erma Aldana Expert. Performed By: #### [id number] #### MARCUS JeriHemo [facility] [place] [address] RBC (U) [#/Vol] 0-3 0-3 Normal 03-19-2019 [facility] (33379) Comment: Order Comment: Order Added erma Aldana Expert. Performed By: #### [id number] #### MARCUSShawn WilcoxHemo [address] [place] [address] UA Blood Negative Negative Normal 03-19-2019 [facility] (82874) Comment: Order Comment: Order Added erma Aldana Expert. Performed By: #### [id number] #### MARCUS JeriHemo [address] [place] [address] UA Clarity SltCloudy Clear Abnormal 03-19-2019 [facility] (34938) Comment: Order Comment: Order Added erma Aldana Expert. Performed By: #### [id number] #### MARCUSShawn WilcoxHemo [address] [place] [address] UA Hyal Cast 3-5 0-2 Abnormal 03-19-2019 [facility] (73241) Comment: Order Comment: Order Added erma Aldana Expert. Performed By: #### [id number] #### MARCUS RemHemo [address] [place] [address] UA Leuk Est 1+ Negative Abnormal 03-19-2019 [facility] (55746) Comment: Order Comment: Order Added erma Aldana Expert. Performed By: #### [id number] #### MARCUS RemHemo [address] [place] [address] UA Mucous Trace Trace Abnormal 03-19-2019 [facility] (95580) Comment: Order Comment: Order Added erma Aldana Expert. Performed By: #### [id number] #### MARCUS WilcoxHemo [address] [place] [address] UA Nitrite Negative Negative Normal 03-19-2019 [facility] (94781) Comment: Order Comment: Order Added erma Aldana Expert. Performed By: #### [id number] #### MARCUS JeriHemo [address] [place] [address] UA pH 5.0 4.6-8.0 Normal 03-19-2019 [facility] (51511) Comment: Order Comment: Order Added erma Aldana Expert. Performed By: #### [id number] #### MARCUS WilcoxHemo [facility] [place] [address] UA Protein Negative Negative Normal 03-19-2019 [facility] (85956) Comment: Order Comment: Order Added erma Aldana Expert. Performed By: #### [id number] #### MARCUS RemHemo [address] [place] [address] UA Spec Grav 1.010 1.003-1.030 Normal 03-19-2019 [facility] (66927) Comment: Order Comment: Order Added erma Aldana Expert. Performed By: #### [id number] #### MARCUS RemHemo [address] [place] [address] UA Squam Epithelial 10-20 0-5 Abnormal 03-19-2019 [facility] (73696) Comment: Order Comment: Order Added erma Aldana Expert. Performed By: #### [id number] #### MARCUS RemHemo [address] [place] [address] UA Urobilinogen Negative Normal 03-19-2019 [facility] (99195) Comment: Order Comment: Order Added erma Aldana [...] laboratory within 24 hours. Performed By: #### [id number] #### MARCUS Kenyono [facility] [place] [address] UA WBC 0-5 0-5 Normal 03-19-2019 [facility] (27674) Comment: Order Comment: Order Added erma Aldana Expert. Performed By: #### [id number] #### MARCUS Kostascorky [address] [place], [place] [id number] Urobilinogen Qn (U) Negative Negative Normal 03-19-2019 [facility] (00 000) Comment: Order Comment: Order Added erma Aldana Expert. Performed By: #### [id number] #### MARCUS Kostascorky [address] [place] [address] ionized calcium poc order on 2019-03-18 Ionized Calcium POC Order Collected Normal 06- [facility] (00 000) Comment: Performed By: #### [id number] #### [place]US [place] [id number] ionized calcium lvl on 2019-03-18 Ionized Ca. 4.5 4.5-5.6 mg/dL Normal 03-18-2019 [facility] (32880) Comment: Performed By: #### [id number] #### MARCUS Kostascorky [address] [place] [address] egfr on 2019-03-18 GFR/1.73 sq M predicted 56 mL/min/1.73 m2 Normal 0 03-18-2019 [facility] among non-blacks [facility] (25518) (S/P/Bld) [Vol rate/Area] Comment: Order Comment: Order Added erma y Discern Expert. Performed By: #### [id number] #### MARCUS Kostaso [address] [place] [address] GFR/1.73 sq M predicted 46 mL/min/1.73 m2 Normal 0 03-18-2019 [facility] among non-blacks [facility] (90639) (S/P/Bld) [Vol rate/Area] Comment: Order Comment: Order Added erma y Discern Expert. Performed By: #### [id number] #### MARCUS RemHemo [address] [place] [address] ct head or brain w/o contrast on 2019-03-18 CT Head or Brain Exam Date/Time: Normal 019 [facility] w/o Contrast 03/18/2019 21:34 EDT Health System Reason for Exam: (00 000) Altered mental status Report STUDY: CT Head or Brain w/o Contrast; 03/18/2019 9:34 pm INDICATION: Altered mental status. COMPARISON: 03/16/2019 ACCESSION NUMBER(S): [id number] ORDERING CLINICIAN: Ac Gao TECHNIQUE: Noncontrast CT [...] (Electronic Signature): 03/18/2019 9:44 pm Signed by: Nicole Anderson MD Technologist: AM cbc w/ auto diff on 2019-03-18 Erythrocyte distribution 14.1 11.5-14.5 % Normal 03-18 [facility] width (RBC) [Ratio] Health System (39786) Comment: Performed By: #### [id number] #### MARCUS RemHemo [address] [place] [address] Hematocrit (Bld) [Volume 40.4 36.0-48.0 % Normal 03-18 [facility]] Health Sys tem (49369) Comment: Performed By: #### [id number] #### MARCUS RemHemo [address] [place] [address] Hemoglobin (Bld) 13.4 12.0-16.0 G/DL Normal 03-18-2019 [facility] [Mass/Vol] Health Sy stem (93140) Comment: Performed By: #### [id number] #### MARCUSShawn WilcoxHemo [address] [place] [address] MCH (RBC) [Entitic mass] 30.2 27.0-31.0 pg Normal 03-18 [facility] (00 000) Comment: Performed By: #### [id number] #### MARCUS JeriHemo [facility] [place] [address] MCHC (RBC) [Mass/Vol] 33.1 33.0-37.0 G/DL Normal 03-18-[address] [facility] () Comment: Performed By: #### [id number] #### MARCUS JeriHemo [facility] [place] [address] MCV (RBC) [Entitic vol] 91.3 78.0-100.0 fL Normal 03-18 [facility] (68983) Comment: Performed By: #### [id number] #### MARCUSShawn WilcoxHemo [facility] [place] [address] Platelet mean volume 8.0 7.4-11.[address] [facility] (Bld) [Entitic vol] System (90187) Comment: Performed By: #### [id number] #### MARCUS JeriHemo [address] [place] [address] Platelets (Bld) [#/Vol] 123 130-400 E3/mcL Low 2018 [facility] (00 000) Comment: Performed By: #### [id number] #### MARCUS RemHemo [address] [place] [address] RBC (Bld) [#/Vol] 4.43 3.90-5.40 E6/mcL Normal 03-18-2019 [facility] (00 000) Comment: Performed By: #### [id number] #### MARCUS RemHemo [address] [place] [address] WBC (Bld) [#/Vol] 4.3 3.6-11.0 E3/mcL Normal 03-18-2019 [facility] (00 000) Comment: Performed By: #### [id number] #### MARCUS JeriHemo [address] [place] [address] bmp on 2019-03-18 Anion gap [Moles/Vol] 11 10-20 mEq/L Normal 03-18-20 [facility] (00 000) Comment: Performed By: #### [id number] #### MARCUS JeriHemo [address] [place] [address] Calcium [Mass/Vol] 8.8 8.6-10.3 mg/dL Normal 03-18-2019 [facility] (00 000) Comment: Performed By: #### [id number] #### MARCUS JeriHemo [address] [place] [address] Chloride [Moles/Vol] 110 98-107 mEq/L High [facility] () Comment: Performed By: #### [id number] #### MARCUS RemHemo [facility] [place] [address] CO2 [Moles/Vol] 20.0 21.0-32.0 mEq/L Low 03-18-2019 [facility] (76417) Comment: Performed By: #### [id number] #### MARCUS JeriHemo [facility] [place] [address] Creatinine [Mass/Vol] 1.2 0.5-1.1 mg/dL High 03-18-20 [facility] (00 000) Comment: Performed By: #### [id number] #### MARCUS RemHemo [address] [place] [address] Glucose [Mass/Vol] 90 70-99 mg/dL Normal 03-18-2019 [facility] (75868) Comment: Performed By: #### [id number] #### MARCUS RemHemo [address] [place] [address] Potassium [Moles/Vol] 4.0 3.5-5.3 mEq/L Normal 03-18-20 [facility] (00 000) Comment: Performed By: #### [id number] #### MARCUS RemHemo [address] [place] [address] Sodium [Moles/Vol] 137 136-145 mEq/L Normal 03-18-2019 [facility] (00 000) Comment: Performed By: #### [id number] #### MARCUS Kenyon[address] [address] Urea nitrogen [Mass/Vol] 9 6-23 mg/dL Normal 03-18 [facility] (00 000) Comment: Performed By: #### [id number] #### MARCUS [place] [id number] Urea nitrogen/Creatinine 7.5 5.4-30.0 ratio Normal 03-18 [facility] [Mass ratio] [facility] (46822) Comment: Performed By: #### [id number] #### MARCUS [address] [address] auto diff on 03-18 Basophils (Bld) [#/Vol] 0.0 0.0-0.2 E3/mcL Normal 2018 [facility] (09659) Comment: Order Comment: Order Added b y Discern Expert. Performed By: #### [id number] #### MARCUS Kenyon[address] [address] Basophils/100 WBC (Bld) 0.5 0.0-2.0 % Normal 2018 [facility] (00 000) Comment: Order Comment: Order Added b y Discern Expert. Performed By: #### [id number] #### MARCUS Kenyon[address] [address] Eos Absolute 0.1 0.0-0.7 E3/mcL Normal 03-18-2019 [facility] (66161) Comment: Order Comment: Order Added b y Discern Expert. Performed By: #### [id number] #### MARCUSShawn Kenyon[address] [address] Eosinophils/100 WBC (Bld) 2.2 0.0-11.0 % Normal [facility] (00 000) Comment: Order Comment: Order Added b y Discern Expert. Performed By: #### [id number] #### MARCUS [address] [address] Lymphocytes (Bld) [#/Vol] 1.3 1.2-3.4 E3/mcL Normal [facility] (36578) Comment: Order Comment: Order Added erma Aldana Expert. Performed By: #### [id number] #### MARCUS eKnyon[address] [address] Lymphocytes/100 WBC (Bld) 30.1 20.0-55.0 % Normal [facility] (60323) Comment: Order Comment: Order Added b y Discern Expert. Performed By: #### [id number] #### MARCUS WilcoxHemo [address] [place] [address] Cooper Absolute 0.4 0.0-0.7 E3/mcL Normal 03-18-2019 [facility] (78617) Comment: Order Comment: Order Added b y Discern Expert. Performed By: #### [id number] #### MARCUS Kenyon[address] [address] Monocytes/100 WBC (Bld) 9.9 0.0-10.0 % Normal 2018 [facility] (00 000) Comment: Order Comment: Order Added b ld Discern Expert. Performed By: #### [id number] #### MARCUS Kenyono [address] [place] [address] Neutro Absolute 2.5 1.4-6.5 E3/mcL Normal 03-18-2019 [facility] (99730) Comment: Order Comment: Order Added erma lizama Discern Expert. Performed By: #### [id number] #### MARCUS WilcoxHemo [address] [place] [address] Neutro Auto 57.3 37.0-75.0 % Normal 03-18-2019 [facility] (99607) Comment: Order Comment: Order Added b y Discern Expert. Performed By: #### [id number] #### MARCUSShawn WilcoxHemo [address] [place] [address] lactic acid on 2018 Lactate [Moles/Vol] 1.2 0.4-2.0 mmol/L Normal 03-16-2019 [facility] (00 000) Comment: Performed By: #### [id number] #### MARCUS RemHemo [address] [place] [address] egfr on 2019-03-16 GFR/1.73 sq M predicted 58 mL/min/1.73 m2 Normal 0 03-16-2019 [facility] among non-blacks [facility] (51277) (S/P/Bld) [Vol rate/Area] Comment: Order Comment: Order Added erma Aldana Expert. Performed By: #### [id number] #### MARCUS RemHemo [address] [place] [address] GFR/1.73 sq M predicted 48 mL/min/1.73 m2 Normal 0 03-16-2019 [facility] among non-blacks [facility] (18928) (S/P/Bld) [Vol rate/Area] Comment: Order Comment: Order Added erma Aldana Expert. Performed By: #### [id number] #### MARCUS RemHemo [facility] [place] [address] ct spine cervical w/o contrast on 2019-03-16 CT Spine Exam Date/Time: Normal 03-16-2019 [facility] Cervical w/o 03/16/2019 00:08 EDT [facility] Contrast Reason for Exam: Cristy dunacn ([id number]) Trauma Report STUDY: CT Spine Cervical w/o Contrast; 03/16/2019 12:46 am INDICATION: Trauma. COMPARISON: None. ACCESSION NUMBER(S): [id number] ORDERING CLINICIAN: Caren Lozano TECHNIQUE: Axial noncontrast [...] CT Head or Brain Exam Date/Time: Normal [facility] w/o Contrast 03/16/2019 00:08 [facility] System Reason for Exam: (00 000) Injury Report STUDY: CT Head or Brain w/o Contrast; 03/16/2019 12:46 am INDICATION: Injury. COMPARISON: 12/01/2018 ACCESSION NUMBER(S): [id number] ORDERING CLINICIAN: Caren Lozano TECHNIQUE: Noncontrast CT [...] Albumin [Mass/Vol] 4.2 3.4-5.0 gm/dL Normal 03-16-2019 [facility] (00 000) Comment: Performed By: #### [id number] #### MARCUS RemHemo [address] [place] [address] Albumin/Globulin [Mass 1.7 1.1-1.9 ratio Normal 019 [facility] (63562) Comment: Performed By: #### [id number] #### MARCUS RemHemo [address] [place] [address] Alk Phos 104 33-110 Int._Unit/L Normal 03-16-2019 [facility] (54979) Comment: Performed By: #### [id number] #### MARCUS JeriHemo [address] [place] [address] ALT [Catalytic 31 7-45 Int._Unit/L Normal 03-16-2019 [facility] (34741) Comment: Performed By: #### [id number] #### MARCUS JeriHemo [address] [place] [address] Anion gap [Moles/Vol] 12 10-20 mEq/L Normal 03-16-[address] [facility] (00 000) Comment: Performed By: #### [id number] #### MARCUS JeriHemo [facility] [place] [address] AST [Catalytic 37 9-39 Int._Unit/L Normal 03-16-2019 [facility] (27618) Comment: Performed By: #### [id number] #### MARCUS JeriHemo [facility] [place] [address] Bili Total 0.79 0.00-1.20 mg/dL Normal 03-16-2019 [facility] (08153) Comment: Performed By: #### [id number] #### MARCUS JeriHemo [facility] [place] [address] Calcium [Mass/Vol] 8.8 8.6-10.3 mg/dL Normal 03-16-2019 [facility] (00 000) Comment: Performed By: #### [id number] #### MARCUS JeriHemo [facility] [place] [address] Chloride [Moles/Vol] 110 98-107 mEq/L High 9 [facility] (00 000) Comment: Performed By: #### [id number] #### MARCUS JeriHemo [address] [place] [address] CO2 [Moles/Vol] 20.0 21.0-32.0 mEq/L Low 03-16-2019 [facility] (83211) Comment: Performed By: #### [id number] #### MARCUS RemHemo [address] [place] [address] Creatinine [Mass/Vol] 1.2 0.5-1.1 mg/dL High 03-16-20 [facility] () Comment: Performed By: #### [id number] #### MARCUS RemHemo [address] [place] [address] Globulin (S) [Mass/Vol] 3.0 2.0-4.0 G/DL Normal 2018 [facility] () Comment: Performed By: #### [id number] #### MARCUS RemHemo [facility] [place] [address] Glucose [Mass/Vol] 114 70-99 mg/dL High 03-16-2019 [facility] () Comment: Performed By: #### [id number] #### MARCUS RemHemo [facility] [place] [address] Potassium [Moles/Vol] 3.4 3.5-5.3 mEq/L Low 03-16-20 [facility] () Comment: Performed By: #### [id number] #### MARCUS RemHemo [facility] [place] [address] Protein [Mass/Vol] 6.7 6.4-8.2 gm/dL Normal 03-16-2019 [facility] () Comment: Performed By: #### [id number] #### MARCUS RemHemo [facility] [place] [address] Sodium [Moles/Vol] 139 136-145 mEq/L Normal 03-16-2019 [facility] () Comment: Performed By: #### [id number] #### MARCUS RemHemo [facility] [place] [address] Urea nitrogen [Mass/Vol] 9 6-23 mg/dL Normal 03-16 [facility] () Comment: Performed By: #### [id number] #### MARCUS RemHemo [address] [place] [address] Urea nitrogen/Creatinine 7.5 5.4-30.0 ratio Normal 03-16 [facility] [Mass [facility] (88594) Comment: Performed By: #### [id number] #### MARCUSShawn WilcoxHemo [address] [place] [address] cbc w/ auto diff on 2019-03-16 Erythrocyte distribution 13.9 11.5-14.5 % Normal 03-16 [facility] width (RBC) [Ratio] [facility] System (81945) Comment: Performed By: #### [id number] #### MARCUS WilcoxHemo [facility] [place] [address] Hematocrit (Bld) [Volume 40.6 36.0-48.0 % Normal 03-16 [facility]] [facility] (05466) Comment: Performed By: #### [id number] #### MARCUSShawn WilcoxHemo [facility] [place] [address] Hemoglobin (Bld) 13.5 12.0-16.0 G/DL Normal 03-16-2019 [facility] [Mass/Vol] [facility] (03377) Comment: Performed By: #### [id number] #### MARCUSShawn WilcoxHemo [address] [place] [address] MCH (RBC) [Entitic mass] 30.4 27.0-31.0 pg Normal 03-16 [facility] (00 000) Comment: Performed By: #### [id number] #### MARCUSShawn WilcoxHemo [address] [place] [address] MCHC (RBC) [Mass/Vol] 33.3 33.0-37.0 G/DL Normal 03-16-[address] [facility] (00 000) Comment: Performed By: #### [id number] #### [facility] [address] [place] [address] MCV (RBC) [Entitic vol] 91.4 78.0-100.0 fL Normal 03-16 [facility] (06337) Comment: Performed By: #### [id number] #### [facility] [address] [place] [address] Platelet mean volume 8.3 7.4-11.[address] [facility] (Bld) [Entitic vol] System (93067) Comment: Performed By: #### [id number] #### MARCUS Kenyono [address] [place] [address] Platelets (Bld) [#/Vol] 118 130-400 E3/mcL Low 2018 [facility] () Comment: Performed By: #### [id number] #### MARCUS [address] [address] RBC (Bld) [#/Vol] 4.45 3.90-5.40 E6/mcL Normal 03-16-2019 [facility] () Comment: Performed By: #### [id number] #### MARCUS [address] [address] WBC (Bld) [#/Vol] 4.4 3.6-11.0 E3/mcL Normal 03-16-2019 [facility] () Comment: Performed By: #### [id number] #### MARCUS [address] [address] auto diff on 03-16 Basophils (Bld) [#/Vol] 0.0 0.0-0.2 E3/mcL Normal 2018 [facility] (68944) Comment: Order Comment: Order Added b y Discern Expert. Performed By: #### [id number] #### MARCUS Kenyono [address] [place] [address] Basophils/100 WBC (Bld) 0.9 0.0-2.0 % Normal 2018 [facility] () Comment: Order Comment: Order Added b y Discern Expert. Performed By: #### [id number] #### MARCUS Kenyono [address] [place] [address] Eos Absolute 0.1 0.0-0.7 E3/mcL Normal 03-16-2019 [facility] (00375) Comment: Order Comment: Order Added b y Discern Expert. Performed By: #### [id number] #### MARCUS [address] [address] Eosinophils/100 WBC (Bld) 2.6 0.0-11.0 % Normal 02-17 [facility] () Comment: Order Comment: Order Added b y Discern Expert. Performed By: #### [id number] #### MARCUS RemHemo [address] [place] [address] Lymphocytes (Bld) [#/Vol] 1.0 1.2-3.4 E3/mcL Low 02-17 [facility] (00 000) Comment: Order Comment: Order Added b y Discern Expert. Performed By: #### [id number] #### MARCUS WilcoxHemo [facility] [place] [address] Lymphocytes/100 WBC (Bld) 23.0 20.0-55.0 % Normal 02-17 [facility] (76648) Comment: Order Comment: Order Added b y Discern Expert. Performed By: #### [id number] #### MARCUS WilcoxHemo [address] [place] [address] Cooper Absolute 0.3 0.0-0.7 E3/mcL Normal 03-16-2019 [facility] (49958) Comment: Order Comment: Order Added b y Discern Expert. Performed By: #### [id number] #### MARCUS RemHemo [address] [place] [address] Monocytes/100 WBC (Bld) 6.8 0.0-10.0 % Normal 2018 [facility] (00 000) Comment: Order Comment: Order Added b y Discern Expert. Performed By: #### [id number] #### MARCUS RemHemo [address] [place] [address] Neutro Absolute 2.9 1.4-6.5 E3/mcL Normal 03-16-2019 [facility] (48559) Comment: Order Comment: Order Added b y Discern Expert. Performed By: #### [id number] #### MARCUS RemHemo [address] [place] [address] Neutro Auto 66.7 37.0-75.0 % Normal 03-16-2019 [facility] (42728) Comment: Order Comment: Order Added b y Discern Expert. Performed By: #### [id number] #### MARCUS RemHemo [address] [place] [address] No panel information on 2019-03-16 Aleksey Lnogoria MD 03-16-2019 [facility] 03/16/2019 4:19 PM ( 16162) [facility] EEG Report Reason for EEG: Seizures. [...] conc 84 65 - 99 mg/dL 03-16-[address] [facility] (72880) Interpretation and Normal 03-16-2019 [facility] review of (04642) laboratory results Interpretation and Abnormal 03-16-2019 [facility] review of (32373) laboratory results Valproate mass conc <3 OTH - ug/mL Low 03-16-2019 [facility] OTH (86255) Cobalamin (Vitamin 354 193 - pg/mL 03-16-2019 [facility] B12) mass conc 986 (4321 5) Folate mass conc 6.9 3.1 - ng/mL 03-16-2019 [facility] 17.5 (82917) Comment: Deficient <2.2 Borderline 2.2 - 3.0 Excessive >17.5 Interpretation and Normal 03-16-2019 [facility] review of laboratory (96023) results Interpretation and Normal 03-16-2019 [facility] review of laboratory (98628) results Thyrotropin Qn 2.12 OTH - OTH m[IU]/L 03-16-2019 [facility] (78148) This order has 03-16-2019 [facility] (68163) auto-finalized and does not contain a result. This order has 03-16-2019 [facility] (02934) auto-finalized and does not contain a result. ua complete on 2018 Color (U) Yellow Normal 03-11-2019 [facility] (72593) Comment: Performed By: #### [id number] #### MARCUS RemHemo [address] [place] [address] Glucose (U) [Mass/Vol] Negative Negative mg/dL Normal 019 [facility] (43978) Comment: Performed By: #### [id number] #### MARCUS RemHemo [address] [place] [address] Ketones Ql (U) Negative Negative Normal 03-11-2019 [facility] (48364) Comment: Performed By: #### [id number] #### MARCUS RemHemo [address] [place] [address] RBC (U) [#/Vol] 0-3 0-3 Normal 03-11-2019 [facility] (95908) Comment: Performed By: #### [id number] #### MARCUS RemHemo [address] [place] [address] UA Blood Negative Negative Normal 03-11-2019 [facility] (39586) Comment: Performed By: #### [id number] #### MARCUS RemHemo [address] [place] [address] UA Bacteria Trace None Abnormal 03-11-2019 [facility] (55886) Comment: Performed By: #### [id number] #### MARCUS RemHemo [address] [place] [address] UA Clarity Clear Clear Normal 03-11-2019 [facility] (75884) Comment: Performed By: #### [id number] #### MARCUS RemHemo [address] [place] [address] UA Leuk Est Negative Negative Normal 03-11-2019 [facility] (21630) Comment: Performed By: #### [id number] #### MARCUS RemHemo [address] [place] [address] UA Mucous Trace Trace Abnormal 03-11-2019 [facility] (61385) Comment: Performed By: #### [id number] #### MARCUS RemHemo [address] [place] [address] UA Nitrite Negative Negative Normal 03-11-2019 [facility] (75800) Comment: Performed By: #### [id number] #### MARCUS RemHemo [address] [place] [address] UA pH 5.0 4.6-8.0 Normal 03-11-2019 [facility] (51764) Comment: Performed By: #### [id number] #### MARCUSShawn WilcoxHemo [address] [place] [address] UA Protein Negative Negative Normal 03-11-2019 [facility] (45025) Comment: Performed By: #### [id number] #### MARCUS WilcoxHemo [address] [place] [address] UA Spec Grav 1.012 1.003-1.030 Normal 03-11-2019 [facility] (82061) Comment: Performed By: #### [id number] #### MARCUS WilcoxHemo [facility] [place] [address] UA Squam Epithelial 10-20 0-5 Abnormal 03-11-2019 [facility] (90995) Comment: Performed By: #### [id number] #### MARCUSShawn WilcoxHemo [facility] [place] [address] UA Urobilinogen Negative Normal 03-11-2019 [facility] (68737) Comment: Result Comment: Due to a man ufacturing issue, low positive urobilinogen results may be fasely positi ve. Correlate with urine bilirubin and additional clinical/laborato ry findings to assess the risk of hemolytic anemia or liver disease. If clinically indicated, repeat testing with an alternate method is availabl e by contacting the laboratory within 24 hours. Performed By: #### [id number] #### MARCUS WilcoxHemo [address] [place] [address] UA WBC 0-5 0-5 Normal 03-11-2019 [facility] (60582) Comment: Performed By: #### [id number] #### MARCUS WilcoxHemo [facility] [place] [address] Urobilinogen Qn (U) Negative Negative Normal 03-11-2019 [facility] (00 000) Comment: Performed By: #### [id number] #### MARCUSShawn Kenyono [facility] [place] [address] troponin-i on 03-11 Troponin I.cardiac 0.01 0.00-0.03 ng/mL Normal 03-11-2019 [facility] [Mass/Vol] [facility] (88905) Comment: Performed By: #### [id number] #### MARCUS WilcoxHemo [address] [place] [address] egfr on 2019-03-11 GFR/1.73 sq M predicted 58 mL/min/1.73 m2 Normal 0 03-11-2019 [facility] among non-blacks [facility] (67522) (S/P/Bld) [Vol rate/Area] Comment: Order Comment: Order Added b y Discern Expert. Performed By: #### [id number] #### MARCUS WilcoxHemo [facility] [place] [address] GFR/1.73 sq M predicted 48 mL/min/1.73 m2 Normal 0 03-11-2019 [facility] among non-blacks [facility] (37015) (S/P/Bld) [Vol rate/Area] Comment: Order Comment: Order Added b y Discern Expert. Performed By: #### [id number] #### MARCUS WilcoxHemo [facility] [place] [address] cbc w/ auto diff on 2019-03-11 Erythrocyte distribution 13.9 11.5-14.5 % Normal 03-11 [facility] width (RBC) [Ratio] Health System (49534) Comment: Performed By: #### [id number] #### MARCUS WilcoxHemo [facility] [place] [address] Hematocrit (Bld) [Volume 37.4 36.0-48.0 % Normal 03-11 [facility] fraction] Health Sys tem (44407) Comment: Performed By: #### [id number] #### MARCUSShawn WilcoxHemo [facility] [place] [address] Hemoglobin (Bld) 12.4 12.0-16.0 G/DL Normal 03-11-2019 [facility] [Mass/Vol] Health [facility] (77059) Comment: Performed By: #### [id number] #### MARCUSShawn WilcoxHemo [facility] [place] [address] MCH (RBC) [Entitic mass] 30.2 27.0-31.0 pg Normal 03-11 [facility] (00 000) Comment: Performed By: #### [id number] #### MARCUS JeriHemo [facility] [place] [address] MCHC (RBC) [Mass/Vol] 33.1 33.0-37.0 G/DL Normal 03-11-20 [facility] () Comment: Performed By: #### [id number] #### MARCUS Kenyono [address] [place] [address] MCV (RBC) [Entitic vol] 91.2 78.0-100.0 fL Normal 03-11 [facility] (48848) Comment: Performed By: #### [id number] #### MARCUS WilcoxHemo [facility] [place] [address] Platelet mean volume 8.1 7.4-11.[address] [facility] (Bld) [Entitic vol] System (53886) Comment: Performed By: #### [id number] #### MARCUS WilcoxHemo [address] [place] [address] Platelets (Bld) [#/Vol] 120 130-400 E3/mcL Low 2018 [facility] (00 000) Comment: Performed By: #### [id number] #### MARCUS WilcoxHemo [address] [place] [address] RBC (Bld) [#/Vol] 4.11 3.90-5.40 E6/mcL Normal 03-11-2019 [facility] (00 000) Comment: Performed By: #### [id number] #### MARCUS WilcoxHemo [address] [place] [address] WBC (Bld) [#/Vol] 3.6 3.6-11.0 E3/mcL Normal 03-11-2019 [facility] ( 000) Comment: Performed By: #### [id number] #### MARCUS JeriHemo [address] [place] [address] bmp on 2019-03-11 Anion gap [Moles/Vol] 11 10-20 mEq/L Normal 03-11-20 [facility] ( 000) Comment: Performed By: #### [id number] #### MARCUSShawn WilcoxHemo [facility] [place] [address] Calcium [Mass/Vol] 8.4 8.6-10.3 mg/dL Low 03-11-2019 [facility] (66007) Comment: Performed By: #### [id number] #### MARCUS WilcoxHemo [address] [place] [address] Chloride [Moles/Vol] 110 98-107 mEq/L High 9 [facility] () Comment: Performed By: #### [id number] #### MARCUS JeriHemo [facility] [place] [address] CO2 [Moles/Vol] 19.0 21.0-32.0 mEq/L Low 03-11-2019 [facility] (17884) Comment: Performed By: #### [id number] #### MARCUS JeriHemo [facility] [place] [address] Creatinine [Mass/Vol] 1.2 0.5-1.1 mg/dL High 03-11-20 [facility] () Comment: Performed By: #### [id number] #### MARCUS JeriHemo [facility] [place] [address] Glucose [Mass/Vol] 88 70-99 mg/dL Normal 03-11-2019 [facility] (13184) Comment: Performed By: #### [id number] #### MARCUS JeriHemo [facility] [place] [address] Potassium [Moles/Vol] 3.8 3.5-5.3 mEq/L Normal 03-11-[address] [facility] () Comment: Performed By: #### [id number] #### MARCUS JeriHemo [facility] [place] [address] Sodium [Moles/Vol] 136 136-145 mEq/L Normal 03-11-2019 [facility] () Comment: Performed By: #### [id number] #### MARCUS JeriHemo [facility] [facility] [place] [address] Urea nitrogen [Mass/Vol] 12 6-23 mg/dL Normal 03-11 [facility] (00 000) Comment: Performed By: #### [id number] #### MARCUS RemHemo [facility] [place] [address] Urea nitrogen/Creatinine 10.0 5.4-30.0 ratio Normal 03-11 [facility] [Mass ratio] [facility] (69243) Comment: Performed By: #### [id number] #### MARCUS Kenyon[address] [address] auto diff on 03-11 Basophils (Bld) [#/Vol] 0.0 0.0-0.2 E3/mcL Normal 2018 [facility] tem (76324) Comment: Order Comment: Order Added b y Discern Expert. Performed By: #### [id number] #### MARCUS Kenyon[address] [address] Basophils/100 WBC (Bld) 0.3 0.0-2.0 % Normal 2018 [facility] (00 000) Comment: Order Comment: Order Added b y Discern Expert. Performed By: #### [id number] #### MARCUS Wilcox[address] [address] Eos Absolute 0.1 0.0-0.7 E3/mcL Normal 03-11-2019 [facility] (49510) Comment: Order Comment: Order Added b y Discern Expert. Performed By: #### [id number] #### MARCUS Kenyon[address] [address] Eosinophils/100 WBC (Bld) 3.7 0.0-11.0 % Normal 02-16 [facility] (00 000) Comment: Order Comment: Order Added b y Discern Expert. Performed By: #### [id number] #### MARCUS Kenyoncorky [address] [place] [address] Lymphocytes (Bld) [#/Vol] 1.0 1.2-3.4 E3/mcL Low 02-16 [facility] (00 000) Comment: Order Comment: Order Added b y Discern Expert. Performed By: #### [id number] #### MARCUSShawn [address] [address] Lymphocytes/100 WBC (Bld) 28.2 20.0-55.0 % Normal 02-16 [facility] (51236) Comment: Order Comment: Order Added erma y Discern Expert. Performed By: #### [id number] #### MARCUS WilcoxHemo [address] [place] [address] Cooper Absolute 0.3 0.0-0.7 E3/mcL Normal 03-11-2019 [facility] (24674) Comment: Order Comment: Order Added b y Discern Expert. Performed By: #### [id number] #### MARCUS WilcoxHemo [address] [place], [place] [address] Monocytes/100 WBC (Bld) 8.9 0.0-10.0 % Normal 2018 [facility] (00 000) Comment: Order Comment: Order Added b y Discern Expert. Performed By: #### [id number] #### MARCUS WilcoxHemo [address] [place] [id number] Neutro Absolute 2.1 1.4-6.5 E3/mcL Normal 03-11-2019 [facility] (52867) Comment: Order Comment: Order Added b y Discern Expert. Performed By: #### [id number] #### MARCUS WilcoxHemo [address] [place] 7647[address] Neutro Auto 58.9 37.0-75.0 % Normal 03-11-2019 [facility] (30151) Comment: Order Comment: Order Added b y Discern Expert. Performed By: #### [id number] #### MARCUSShawn WilcoxHemo [address] [place] [address] No panel information on 2019-03-08 Ammonia mass conc 30 OTH - OTH ug/dL 03-08-2019 [facility] ([facility]) (24296) Interpretation and Normal 03-08-2019 [facility] review of laboratory (82319) results Interpretation and Normal 03-08-2019 [facility] review of laboratory (85141) results Thyrotropin Qn 2.54 OTH - OTH m[IU]/L 03-08-2019 [facility] (52509) Albumin mass conc 3.6 3.2 - 5.2 g/dL 03-08-2019 [facility] (19450) ALP enzyme act/vol 99 40 - 150 U/L 03-08-2019 [facility] (33492) ALT enzyme act/vol 31 14 - 65 U/L 03-08-2019 [facility] (83619) Anion gap molar conc 12 10 - 20 mmol/L 9 [facility] (12308) AST enzyme act/vol 29 0 - 45 U/L 03-08-2019 [facility] (37052) Bilirubin mass conc 0.6 0 - 1.3 mg/dL 03-08-2019 [facility] (36280) Calcium mass conc 8.4 8.4 - mg/dL 03-08-2019 [facility] 10.2 (04386) Chloride molar conc 114 98 - 108 mmol/L High 03-08-2019 [facility] (95933) Creatinine mass conc 1.31 0.4 - 1.1 mg/dL High 9 [facility] (43107) GFR/1.73 sq M The eGFR should 03-08-2019 [facility] predicted among be used for (4 5495) non-blacks MDRD vol monitoring renal rate/area (S/P/Bld) function only and not for medication dosing. GFR/1.73 sq 49 >=60 Low 03-08-2019 [facility] lth M.predicted CKD-EPI mL/min/1. (41130) vol rate/area 73 m2 (S/P/Bld) Glucose mass conc 94 65 - 99 mg/dL 03-08-[address] [facility] (34908) HCO3 molar conc 20 21 - 32 mmol/L Low 03-08-2019 [facility] (24949) Interpretation and Abnormal 03-08-2019 [facility] review of laboratory (44158) results Potassium molar conc 4.1 3.5 - 5.1 mmol/L 9 [facility] (29713) Protein mass conc 7.2 6 - 8 g/dL 03-08-2019 [facility]56453[facility] Sodium molar conc 142 135 - 145 mmol/L 03-08-[address] [facility] (10669) Urea nitrogen mass 16 8 - 25 mg/dL 03-08-2019 [facility] conc (78067) Urea 12.2 OTH - OTH mg/mg 03-08-2019 [facility] h nitrogen/Creatinine (50459) mass ratio Valproate mass conc 4 OTH - OTH ug/mL Low 03-08-2019 [facility] (85217) egfr on 2019-02-24 GFR/1.73 sq M predicted 43 mL/min/1.73 m2 Normal 0 02-24-2019 [facility] (46410) (S/P/Bld) [Vol rate/Area] Comment: Order Comment: Order Added b y Katya Expert. Performed By: #### [id number] #### MARCUS JeriHemo [address] [place] [address] GFR/1.73 sq M predicted 52 mL/min/1.73 m2 Normal 0 02-24-2019 [facility] among non-blacks [facility] (05562) (S/P/Bld) [Vol rate/Area] Comment: Order Comment: Order Added b y Katya Expert. Performed By: #### [id number] #### MARCUS RemHemo [address] [place] [address] bmp on 2019-02-24 Anion gap [Moles/Vol] 12 10-20 mEq/L Normal 02-25-20 [facility] () Comment: Performed By: #### [id number] #### MARCUS RemHemo [address] [place] [address] Calcium [Mass/Vol] 8.9 8.6-10.3 mg/dL Normal 02-24-2019 [facility] () Comment: Performed By: #### [id number] #### MARCUS RemHemo [address] [place] [address] Chloride [Moles/Vol] 110 98-107 mEq/L High 9 [facility] () Comment: Performed By: #### [id number] #### MARCUS RemHemo [address] [place] [address] CO2 [Moles/Vol] 21.0 21.0-32.0 mEq/L Normal 02-24-2019 [facility] () Comment: Performed By: #### [id number] #### MARCUS RemHemo [address] [place] [address] Creatinine [Mass/Vol] 1.3 0.5-1.1 mg/dL High 02-25-20 [facility] () Comment: Performed By: #### [id number] #### MARCUS RemHemo [address] [place] [address] Glucose [Mass/Vol] 89 70-99 mg/dL Normal 02-24-2019 [facility] (71505) Comment: Performed By: #### [id number] #### MARCUS RemHemo [address] [place] [address] Potassium [Moles/Vol] 4.5 3.5-5.3 mEq/L Normal 02-25-[address] [facility] (00 000) Comment: Performed By: #### [id number] #### MARCUS RemHemo [address] [place] [address] Sodium [Moles/Vol] 138 136-145 mEq/L Normal 02-24-2019 [facility] (00 000) Comment: Performed By: #### [id number] #### MARCUS RemHemo [address] [place] [address] Urea nitrogen [Mass/Vol] 15 6-23 mg/dL Normal 02-24 [facility] (00 000) Comment: Performed By: #### [id number] #### MARCUS RemHemo [address] [place] [address] Urea nitrogen/Creatinine 11.5 5.4-30.0 ratio Normal 02-24 [facility] [Mass ratio] [facility] (67386) Comment: Performed By: #### [id number] #### MARCUS JeriHemo [address] [place] [address] zzplt morph on 2018 Platelet morphology finding NORMAL Normal [facility] (00 000) Comment: Performed By: #### [id number] #### MARCUS RemHemo [address] [place] [address] Platelets (d) [#/Vol] DECREASED Normal 2018 [facility] ( 000) Comment: Performed By: #### [id number] #### MARCUS RemHemo [address] [place] [address] manual diff on 2018 Band form neutrophils/100 WBC 9 0-1 High 02-23-2019 [facility] (Bld) System (00 000) Comment: Order Comment: Order Added erma Aldana Expert. Performed By: #### [id number] #### MARCUSShawn Kenyono [address] [place] [address] Basophil Man 0 0-1 % Normal 02-23-2019 [facility] (64737) Comment: Order Comment: Order Added erma Aldana Expert. Performed By: #### [id number] #### MARCUS JeriKarlo [address] [place] [address] Eosinophils/100 WBC (Bld) 2 0-5 % Normal [facility] (29932) Comment: Order Comment: Order Added erma Aldana Expert. Performed By: #### [id number] #### MARCUS JeriKarlo [address] [place] [address] Lymphocytes/100 WBC (Bld) 33 14-48 % Normal [facility] (00 000) Comment: Order Comment: Order Added erma Aldana Expert. Performed By: #### [id number] #### MARCUSShawn Kenyono [address] [place] [address] Bonanza Man 3 0-0 % High 02-23-2019 [facility] (22111) Comment: Order Comment: Order Added erma Aldana Expert. Performed By: #### [id number] #### MARCUS JeriKarlo [address] [place] [address] Monocyte Man 11 1-11 % Normal 02-23-2019 [facility] (44698) Comment: Order Comment: Order Added erma Aldana Expert. Performed By: #### [id number] #### MARCUSShawn Kenyono [address] [place] [address] Myelo Man 2 0-0 % High 02-23-2019 [facility] (58961) Comment: Order Comment: Order Added erma Aldana Expert. Performed By: #### [id number] #### MARCUSShawn Kenyono [address] [place] [address] Ovalocytes 1+ Normal 02-23-2019 [facility] (59489) Comment: Order Comment: Order Added erma Aldana Expert. Performed By: #### [id number] #### MARCUSShawn Luong [address] [place] [address] Polychromasia 1+ Normal 02-23-2019 [facility] (08195) Comment: Order Comment: Order Added erma Aldana Expert. Performed By: #### [id number] #### MARCUS Kenyoncorky [facility] [place] [address] RBC morphology finding SEE MORPHOLOGY Normal [facility] (Bld[facility] Sys tem (58615) Comment: Order Comment: Order Added b y Discern Expert. Performed By: #### [id number] #### MARCUS Kenyoncorky [facility] [place] [address] Segs Man 40 37-75 % Normal 02-23-2019 [facility] (54424) Comment: Order Comment: Order Added erma lizama Discern Expert. Performed By: #### [id number] #### MARCUS Kostascorky [address] [place], [place] [address] lamotrigine lvl on 2019-02-23 Lamotrigine Lvl None Detected 2.0-20.0 Normal 02-23-2019 [facility] (00 000) Comment: Result Comment: This test wa s developed and its performance characteristics determined by [employer]. It guzman s not been cleared or approved by the Food and Nabeel g Administration. Detection Limit = 1.0 Performed At: [address] [id number] Aramis Sharpe MD Performed By: #### [id number] #### MARCUS Kostascorky [address] [place] [address] egfr on 2019-02-23 GFR/1.73 sq M predicted 60 mL/min/1.73 m2 Normal 0 02-23-2019 [facility] among non-blacks [facility] (83936) (S/P/Bld) [Vol rate/Area] Comment: Order Comment: Order Added b y Discern Expert. Performed By: #### [id number] #### MARCUS Kenyono [address] [place] [address] GFR/1.73 sq M predicted 50 mL/min/1.73 m2 Normal 0 02-23-2019 [facility] among non-blacks [facility] (76374) (S/P/Bld) [Vol rate/Area] Comment: Order Comment: Order Added b y Discern Expert. Performed By: #### [id number] #### MARCUS Luong [facility] [place] [address] cmp on 2019-02-23 Albumin [Mass/Vol] 3.3 3.4-5.0 gm/dL Low 02-23-2019 [facility] (93870) Comment: Performed By: #### [id number] #### MARCUS Luong [facility] [place] [address] Albumin/Globulin [Mass 1.5 1.1-1.[address] [facility] (73798) Comment: Performed By: #### [id number] #### MARCUS Kenyoncox [address] [place] [address] Alk Phos 57 33-110 Int._Unit/L Normal 02-23-2019 [facility] (66836) Comment: Performed By: #### [id number] #### MARCUS Kenyon[address] [address] ALT [Catalytic 12 7-45 Int._Unit/L Normal 02-23-2019 [facility] (39200) Comment: Performed By: #### [id number] #### MARCUS Kenyono [address] [place] [address] Anion gap [Moles/Vol] 10 10-20 mEq/L Normal 02-24-[address] [facility] (00 000) Comment: Performed By: #### [id number] #### MARCUS Kenyono [address] [place] [address] AST [Catalytic 20 9-39 Int._Unit/L Normal 02-23-2019 [facility] (77967) Comment: Performed By: #### [id number] #### MARCUSShawn Kenyono [facility] [place] [address] Bili Total 0.33 0.00-1.20 mg/dL Normal 02-23-2019 [facility] (52732) Comment: Performed By: #### [id number] #### MARCUS RemHemo [address] [place] [address], [place] [address] Calcium [Mass/Vol] 8.3 8.6-10.3 mg/dL Low 02-23-2019 [facility] (23621) Comment: Performed By: #### [id number] #### MARCUS RemHemo [address] [place] [address] Chloride [Moles/Vol] 114 98-107 mEq/L High [facility] () Comment: Performed By: #### [id number] #### MARCUS RemHemo [address] [place] [address] CO2 [Moles/Vol] 22.0 21.0-32.0 mEq/L Normal 02-23-2019 [facility] () Comment: Performed By: #### [id number] #### MARCUS WilcoxHemo [address] [place] [address] Creatinine [Mass/Vol] 1.2 0.5-1.1 mg/dL High 02-24-20 [facility] () Comment: Performed By: #### [id number] #### MARCUS RemHemo [address] [place] [address] Globulin (S) [Mass/Vol] 2.0 2.0-4.0 G/DL Normal 2018 [facility] ( 000) Comment: Performed By: #### [id number] #### MARCUS RemHemo [address] [place] [address] Glucose [Mass/Vol] 86 70-99 mg/dL Normal 02-23-2019 [facility] (44256) Comment: Performed By: #### [id number] #### MARCUS RemHemo [address] [place] [address] Potassium [Moles/Vol] 4.4 3.5-5.3 mEq/L Normal 02-24-20 [facility] ( 000) Comment: Performed By: #### [id number] #### MARCUS RemHemo [address] [place] [address] Protein [Mass/Vol] 5.5 6.4-8.2 gm/dL Low 02-23-2019 [facility] (39935) Comment: Performed By: #### [id number] #### MARCUS JeriHemo [address] [place] [address] Sodium [Moles/Vol] 141 136-145 mEq/L Normal 02-23-2019 [facility] (00 000) Comment: Performed By: #### [id number] #### MARCUS JeriHemo [facility] [place] [address] Urea nitrogen [Mass/Vol] 11 6-23 mg/dL Normal 02-23 [facility] (00 000) Comment: Performed By: #### [id number] #### MARCUS JeriHemo [facility] [place] [address] Urea nitrogen/Creatinine 9.2 5.4-30.0 ratio Normal 02-23 [facility] [Mass ratio] [facility] (65208) Comment: Performed By: #### [id number] #### MARCUS JeriHemo [address] [place] [address] cbc w/ auto diff on 2019-02-23 Erythrocyte distribution 14.7 11.5-14.5 % High 02-23 [facility] width (RBC) [Ratio] Health System (93285) Comment: Performed By: #### [id number] #### MARCUS JeriHemo [facility] [place] [address] Hematocrit (Bld) [Volume 35.2 36.0-48.0 % Low 02-23 [facility]] System (00 000) Comment: Performed By: #### [id number] #### MARCUS JeriHemo [address] [place] [address] Hemoglobin (Bld) 11.7 12.0-16.0 G/DL Low 02-23-2019 [facility] [Mass/Vol] Health Sy stem (72872) Comment: Performed By: #### [id number] #### MARCUS JeriHemo [facility] [place] [address] MCH (RBC) [Entitic mass] 31.2 27.0-31.0 pg High 02-23 [facility] (00 000) Comment: Performed By: #### [id number] #### [facility]US [facility] [place] [address] MCHC (RBC) [Mass/Vol] 33.2 33.0-37.0 G/DL Normal 02-24-[address] [facility] (00 000) Comment: Performed By: #### [id number] #### MARCUS Kenyono [address] [place] [address] MCV (RBC) [Entitic vol] 93.8 78.0-100.0 fL Normal 02-23 [facility] (01829) Comment: Performed By: #### [id number] #### MARCUS WilcoxHemo [facility] [place] [address] Platelet mean volume 7.6 7.4-11.[address] [facility] (Bld) [Entitic vol] System (39787) Comment: Performed By: #### [id number] #### MARCUS WilcoxHemo [address] [place] [address] Platelets (Bld) [#/Vol] 56 130-400 E3/mcL Low 2018 [facility] (00 000) Comment: Performed By: #### [id number] #### MARCUSShawn WilcoxHemo [facility] [place] [address] RBC (Bld) [#/Vol] 3.75 3.90-5.40 E6/mcL Low 02-23-2019 [facility] (00 000) Comment: Performed By: #### [id number] #### MARCUSShawn WilcoxHemo [facility] [place] [address] WBC (Bld) [#/Vol] 2.4 3.6-11.0 E3/mcL Low 02-23-2019 [facility] (11551) Comment: Performed By: #### [id number] #### MARCUSShawn WilcoxHemo [address] [place] [address] c urine on C Urine Final Report: Rare Normal Normal [facility] skin joe isolated System (23686) Comment: Performed By: #### [id number] #### MARCUS [facility] [place] [address] ammonia on Ammonia (P) [Mass/Vol] 53 16-53 mcmol/L Normal 019 [facility] (00 000) Comment: Performed By: #### [id number] #### MARCUS Kenyoncorky [address] [place] [address] .manual abs on 2018 Basophil Abs Man 0.0 0.0-0.2 10x3/ Normal 02-23-[address] [facility] (63686) Comment: Order Comment: Order Added b y Discern Expert. Performed By: #### [id number] #### MARCUSShawn Luong [address] [place] [address] Eos Abs Man 0.0 0.0-0.5 10x3/ Normal 02-23-2019 [facility] (39434) Comment: Order Comment: Order Added b y Discern Expert. Performed By: #### [id number] #### MARCUS Kostascorky [address] [place] [address] Lymph Abs Man 0.8 1.2-3.4 10x3/ Low 02-23-2019 [facility] (42283) Comment: Order Comment: Order Added b y Discern Expert. Performed By: #### [id number] #### MARCUS JeriRahul [address] [place] [address] Cooper Abs Man 0.3 0.0-0.7 10x3/ Normal 02-23-2019 [facility] (51867) Comment: Order Comment: Order Added b y Discern Expert. Performed By: #### [id number] #### MARCUS Kostaso [address] [place] [address] Segs Abs Man 1.0 1.4-6.5 10x3/ Low 02-23-2019 [facility] (09304) Comment: Order Comment: Order Added b y Discern Expert. Performed By: #### [id number] #### MARCUS Kostaso [address] [place] [address] zzplt morph on 2018 Platelet morphology finding ENLARGED Normal [facility] (d) System (00 000) Comment: Performed By: #### [id number] #### MARCUS JeriHemo [address] [place] [address] Platelets (Bld) [#/Vol] DECREASED Normal 2018 [facility] (00 000) Comment: Performed By: #### [id number] #### MARCUS Kenyono [address] [place] [address] valproic acid on 05-03-08 Valpro Acid Lvl 75 50-100 microgram/mL Normal 02-22-2019 [facility] (00 000) Comment: Performed By: #### [id number] #### MARCUS Kenyono [facility] [place] [address] phosphorus on 02-22 Phosphate [Mass/Vol] 2.7 2.5-4.9 mg/dL Normal [facility] (00 000) Comment: Performed By: #### [id number] #### MARCUS Kenyono [facility] [place] [address] manual diff on 2018 Anisocytosis Ql (Bld) 1+ Normal 02-23-20 [facility] (07478) Comment: Order Comment: Order Added b y Discern Expert. Performed By: #### [id number] #### MARCUS WilcoxHemo [facility] [place] [address] Basophil Man 0 0-1 % Normal 02-22-2019 [facility] (06558) Comment: Order Comment: Order Added b y Discern Expert. Performed By: #### [id number] #### MARCUS Kenyono [facility] [place] [address] Eosinophils/100 WBC (Bld) 0 0-5 % Normal [facility] (84194) Comment: Order Comment: Order Added b y Discern Expert. Performed By: #### [id number] #### MARCUS WilcoxHemo [address] [place] [address] Lymphocytes/100 WBC (Bld) 51 14-48 % High - [facility] (74808) Comment: Order Comment: Order Added b y Discern Expert. Performed By: #### [id number] #### MARCUSShawn WilcoxHemo [address] [place] [address] Monocyte Man 9 1-11 % Normal 02-22-2019 [facility] (01974) Comment: Order Comment: Order Added erma Aldana Expert. Performed By: #### [id number] #### MARCUSShawn Kenyono [address] [place] [address] RBC morphology finding SEE MORPHOLOGY Normal [facility] (d) Health Sys tem (20454) Comment: Order Comment: Order Added erma y Katya Expert. Performed By: #### [id number] #### MARCUSShawn WilcoxHemo [facility] [place] [address] Segs Man 40 37-75 % Normal 02-22-2019 [facility] (57337) Comment: Order Comment: Order Added erma y Katya Expert. Performed By: #### [id number] #### MARCUS JeriBillingstreeto [facility] [place] [address] magnesium on 08 Magnesium [Mass/Vol] 1.8 1.6-2.4 mg/dL Normal 9 [facility] (00 000) Comment: Performed By: #### [id number] #### MARCUSShawn WilcoxHemo [facility] [place] [address] hgba1c on 8 HbA1c ([facility]) [Mass fraction] 5.1 4.0-6.3 % Normal [facility] (00 000) Comment: Performed By: #### [id number] #### MARCUS JeriHemo [facility] [place] [address] gases - blood on 05-03-08 Allens Test. Normal 02-22-2019 [facility] (53247) Comment: Performed By: #### [id number] #### MARCUS JeriHemo [address] [place] [address] Base Excess. -9 -2-3 mmol/L Low 02-22-2019 [facility] (20946) Comment: Performed By: #### [id number] #### MARCUS RemHemo [address] [place] [address] CO2 Tot. 17 22-28 mmol/L Low 02-22-2019 [facility] (08175) Comment: Performed By: #### [id number] #### MARCUS Kenyono [address] [place] [address] CPAP/PEEP(cmH2O). NOT CALCULATED Normal 019 [facility] (00 000) Comment: Performed By: #### [id number] #### MARCUS Kenyono [facility] [place] [address] FiO2. 21 % Normal 02-22-2019 [facility] (81113) Comment: Performed By: #### [id number] #### MARCUS JeriHemo [address] [place] [address] HCO#. 16.3 22.0-26.0 mmol/L Low 02-22-2019 [facility] (55062) Comment: Performed By: #### [id number] #### MARCUS Kostaso [address] [place] [address] O2 Devices. Room Air Normal 02-22-2019 [facility] (17886) Comment: Performed By: #### [id number] #### MARCUS WilcoxHemo [address] [place] [address] OPID. [id number] Normal 02-22-2019 [facility] (28373) Comment: Performed By: #### [id number] #### MARCUS Kostaso [address] [place], [place] [address] Oxygen (Bld) [Partial 101 80-100 mmHg High 02-23-20 19 [facility]] System (00 000) Comment: Performed By: #### [id number] #### MARCUS WilcoxHemo [address] [place], [place] [address] Oxygen saturation in Blood 98 95-100 % Normal [facility] (00 000) Comment: Performed By: #### [id number] #### MARCUS JeriHemo [facility] [place] [address] P CO2. 28.4 35.0-45.0 mmHg Low 02-22-2019 [facility] (98702) Comment: Performed By: #### [id number] #### MARCUS JeriHemo [facility] [place] [address] Patient Temp. NOT CALCULATED Normal 02-22-2019 [facility] (51507) Comment: Performed By: #### [id number] #### MARCUS JeriHemo [address] [place] [address] pH (Bld) 7.367 7.350-7.450 Normal 02-22-2019 [facility] (11916) Comment: Performed By: #### [id number] #### MARCUS JeriHemo [facility] [place] [address] PSV/IP(cmH2O). NOT CALCULATED Normal 02-22-2019 [facility] (04196) Comment: Performed By: #### [id number] #### MARCUS JeriHemo [facility] [place] [address] Sample Site. R brach Normal 02-22-2019 [facility] (55462) Comment: Performed By: #### [id number] #### MARCUS JeriHemo [facility] [place] [address] Sample Type. Arterial Normal 02-22-2019 [facility] (97542) Comment: Performed By: #### [id number] #### [place] [address] Set RR(b/min). NOT CALCULATED Normal 02-22-2019 [facility] (57164) Comment: Performed By: #### [id number] #### [facility] [address] [place] [address] Tidal Volume(mL). NOT CALCULATED Normal 019 [facility] (00 000) Comment: Performed By: #### [id number] #### MARCUS JeriHemo [address] [place] [address] Vent Mode. NOT CALCULATED Normal 02-22-2019 [facility] (95684) Comment: Performed By: #### [id number] #### MARCUS JeirHemo [facility] [place] [id number] egfr on 2019-02-22 GFR/1.73 sq M predicted 56 mL/min/1.73 m2 Normal 0 02-22-2019 [facility] among non-blacks [facility] (86859) (S/P/Bld) [Vol rate/Area] Comment: Order Comment: Order added b y Discern Expert. Performed By: #### [id number] # ### MARCUS WilcoxHemo [address] [place] [address] GFR/1.73 sq M predicted 46 mL/min/1.73 m2 Normal 0 02-22-2019 [facility] among non-blacks [facility] (55019) (S/P/Bld) [Vol rate/Area] Comment: Order Comment: Order added b y Discern Expert. Performed By: #### [id number] # ### MARCUSShawn WilcoxHemo [facility] [place] [address] cbc w/ auto diff on 2019-02-22 Erythrocyte distribution 15.0 11.5-14.5 % High 02-22 [facility] width (RBC) [Ratio] Health System (46697) Comment: Performed By: #### [id number] #### [facility]US [facility] [place] [address] Hematocrit (Bld) [Volume 35.9 36.0-48.0 % Low 02-22 [facility]] System (00 000) Comment: Performed By: #### [id number] #### [facility] [address] [place] [address] Hemoglobin (Bld) 11.8 12.0-16.0 G/DL Low 02-22-2019 [facility] [Mass/Vol] Health Sy stem (01617) Comment: Performed By: #### [id number] #### MARCUSShawn WilcoxHemo [facility] [place] [address] MCH (RBC) [Entitic mass] 31.1 27.0-31.0 pg High 02-22 [facility] (00 000) Comment: Performed By: #### [id number] #### MARCUSShawn WilcoxHemo [facility] [place] [address] MCHC (RBC) [Mass/Vol] 32.9 33.0-37.0 G/DL Low 02-23-[address] [facility] (00 000) Comment: Performed By: #### [id number] #### [facility]US [facility] [place] [address] MCV (RBC) [Entitic vol] 94.6 78.0-100.0 fL Normal 02-22 [facility] (11424) Comment: Performed By: #### [id number] #### MARCUS WilcoxHemo [address] [place] [address] Platelet mean volume 7.9 7.4-11.[address] [facility] (d) [Entitic vol] System (90989) Comment: Performed By: #### [id number] #### MARCUS JeriHemo [facility] [place] [address] Platelets (Bld) [#/Vol] 62 130-400 E3/mcL Low 2018 [facility] ( 000) Comment: Performed By: #### [id number] #### MARCUS JeriHemo [facility] [place] [address] RBC (Bld) [#/Vol] 3.79 3.90-5.40 E6/mcL Low 02-22-2019 [facility] () Comment: Performed By: #### [id number] #### MARCUSShawn WilcoxHemo [address] [place] [address] WBC (Bld) [#/Vol] 2.8 3.6-11.0 E3/mcL Low 02-22-2019 [facility] (61360) Comment: Performed By: #### [id number] #### MARCUS JeriHemo [facility] [place] [address] bmp on 2019-02-22 Anion gap [Moles/Vol] 10 10-20 mEq/L Normal 02-23-[address] [facility] () Comment: Performed By: #### [id number] # ### MARCUS JeriHemo [facility] [place] [address] Calcium [Mass/Vol] 7.7 8.6-10.3 mg/dL Low 02-22-2019 [facility] (00347) Comment: Performed By: #### [id number] # ### MARCUSShawn WilcoxHemo [facility] [place] [address] Chloride [Moles/Vol] 115 98-107 mEq/L High 9 [facility] ( 000) Comment: Performed By: #### [id number] # ### MARCUS JeriHemo [address] [place] [address] CO2 [Moles/Vol] 20.0 21.0-32.0 mEq/L Low 02-22-2019 [facility] (42946) Comment: Performed By: #### [id number] # ### MARCUS WilcoxHemo [address] [place] [address] Creatinine [Mass/Vol] 1.2 0.5-1.1 mg/dL High 02-23-20 [facility] (00 000) Comment: Performed By: #### [id number] # ### MARCUS WilcoxHemo [address] [place] [address] Glucose [Mass/Vol] 89 70-99 mg/dL Normal 02-22-2019 [facility] (10145) Comment: Performed By: #### [id number] # ### MARCUS WilcoxHemo [address] [place] [address] Potassium [Moles/Vol] 4.3 3.5-5.3 mEq/L Normal 02-23-[address] [facility] (00 000) Comment: Performed By: #### [id number] # ### MARCUS WilcoxHemo [address] [place] [address] Sodium [Moles/Vol] 141 136-145 mEq/L Normal 02-22-2019 [facility] (00 000) Comment: Performed By: #### [id number] # ### MARCUS WilcoxHemo [address] [place] [address] Urea nitrogen [Mass/Vol] 14 6-23 mg/dL Normal 02-22 [facility] (00 000) Comment: Performed By: #### [id number] # ### MARCUS RemHemo [address] [place] [address] Urea nitrogen/Creatinine 11.7 5.4-30.0 ratio Normal 02-22 [facility] (26813) Comment: Performed By: #### [id number] # ### MARCUS RemHemo [address] [place] [address] .manual abs on 2018 Basophil Abs Man 0.0 0.0-0.2 10x3/ Normal 02-22-[address] [facility] (26556) Comment: Order Comment: Order Added erma lizama Discern Expert. Performed By: #### [id number] #### MARCUS RemHemo [address] [place] [address] Eos Abs Man 0.0 0.0-0.5 10x3/ Normal 02-22-2019 [facility] (29588) Comment: Order Comment: Order Added erma lizama Discern Expert. Performed By: #### [id number] #### MARCUS RemHemo [address] [place] [address] Lymph Abs Man 1.4 1.2-3.4 10x3/ Normal 02-22-2019 [facility] (37892) Comment: Order Comment: Order Added b y Discern Expert. Performed By: #### [id number] #### MARCUS JeriHemo [address] [place] [address] Cooper Abs Man 0.3 0.0-0.7 10x3/ Normal 02-22-2019 [facility] (38548) Comment: Order Comment: Order Added erma lizama Discern Expert. Performed By: #### [id number] #### MARCUS RemHemo [address] [place] [address] Segs Abs Man 1.1 1.4-6.5 10x3/ Low 02-22-2019 [facility] (16585) Comment: Order Comment: Order Added erma lizama Discern Expert. Performed By: #### [id number] #### MARCUS RemHemo [address] [place] [address] zzplt morph on 2018 Platelet morphology finding ENLARGED Normal [facility] System (00 000) Comment: Performed By: #### [id number] #### MARCUS Urinalysis Automated Suggs bsection [address] [place] [address] Platelets (d) [#/Vol] DECREASED Normal 2018 [facility] (00 000) Comment: Performed By: #### [id number] #### MARCUS Urinalysis Automated [facility] bsection [address] [place] [address] valproic acid on 05-03-07 Valpro Acid Lvl 102 50-100 microgram/mL Critically 02-21-2019 [facility] (00 000) Comment: Result Comment: Critical Res ult (s) Called to and read back by: XUAN GARCIA at: 02/21/2019 18:51 :29 by:ZOFIA Performed By: #### [id number] # ### MARCUS RemHemo [facility] [place] [address] Valpro Acid Lvl 101 50-100 microgram/mL Critically 02-21-2019 [facility] (00 000) Comment: Result Comment: Critical Res ult (s) Called to and read back by: XUAN GARCIA at: 02/21/2019 13:43 :39 by:RAY Performed By: #### [id number] # ### MARCUS Microbiology Subsection [address] [place], [place] [id number] ua complete on 2018 Color (U) Straw Yellow Normal 02-21-2019 [facility] (85645) Comment: Order Comment: Straight Cath as needed Performed By: #### [id number] # ### MARCUS Microbiology Subsection [address] [place], [place] [address] Glucose (U) [Mass/Vol] Negative Negative mg/dL Normal 019 [facility] tem (79419) Comment: Order Comment: Straight Cath as needed Performed By: #### [id number] # ### MARCUS Microbiology Subsection [address] [place] [address] Ketones Ql (U) Negative Negative Normal 02-21-2019 [facility] (05841) Comment: Order Comment: Straight Cath as needed Performed By: #### [id number] # ### MARCUS Microbiology Subsection [address] [place] [address] RBC (U) [#/Vol] 0-3 0-3 Normal 02-21-2019 [facility] (72668) Comment: Order Comment: Straight Cath as needed Performed By: #### [id number] # ### MARCUS Microbiology Subsection [address] [place] [address] UA Blood Negative Negative Normal 02-21-2019 [facility] (88869) Comment: Order Comment: Straight Cath as needed Performed By: #### [id number] # ### MARCUS Microbiology Subsection [address] [place] [address] UA Bacteria Trace None Abnormal 02-21-2019 [facility] (50307) Comment: Order Comment: Straight Cath as needed Performed By: #### [id number] # ### MARCUS Microbiology Subsection [address] [place] [address] UA Clarity SltCloudy Clear Abnormal 02-21-2019 [facility] (16135) Comment: Order Comment: Straight Cath as needed Performed By: #### [id number] # ### MARCUS Microbiology Subsection [address] [place] [address] UA Leuk Est 1+ Negative Abnormal 02-21-2019 [facility] (53395) Comment: Order Comment: Straight Cath as needed Performed By: #### [id number] # ### MARCUS Microbiology Subsection [address] [place] [address] UA Mucous Trace Trace Abnormal 02-21-2019 [facility] (48672) Comment: Order Comment: Straight Cath as needed Performed By: #### [id number] # ### MARCUS Microbiology Subsection [address] [place] [address] UA Nitrite Negative Negative Normal 02-21-2019 [facility] (27961) Comment: Order Comment: Straight Cath as needed Performed By: #### [id number] # ### MARCUS Microbiology Subsection [address] [place] [address] UA pH 5.0 4.6-8.0 Normal 02-21-2019 [facility] (54300) Comment: Order Comment: Straight Cath as needed Performed By: #### [id number] # ### MARCUS Microbiology Subsection [address] [place] [address] UA Protein Negative Negative Normal 02-21-2019 [facility] (23596) Comment: Order Comment: Straight Cath as needed Performed By: #### [id number] # ### MARCUS Microbiology Subsection [address] [place] [address] UA Spec Grav 1.005 1.003-1.030 Normal 02-21-2019 [facility] (23147) Comment: Order Comment: Straight Cath as needed Performed By: #### [id number] # ### MARCUS Microbiology Subsection [address] [place] [address] UA Squam Epithelial 5-10 0-5 Abnormal 02-21-2019 [facility] (67955) Comment: Order Comment: Straight Cath as needed Performed By: #### [id number] # ### MARCUS Microbiology Subsection [address] [place] [address] UA Urobilinogen Negative Normal 02-21-2019 [facility] (00229) Comment: Order Comment: Straight Cath as needed [...] laboratory within 24 hours. Performed By: #### [id number] # ### MARCUS Microbiology Subsection [address] [place] [address] UA WBC 0-5 0-5 Normal 02-21-2019 [facility] (80504) Comment: Order Comment: Straight Cath as needed Performed By: #### [id number] # ### MARCUS Microbiology Subsection [address] [place] [address] Urobilinogen Qn (U) Negative Negative Normal 02-21-2019 [facility] (00 000) Comment: Order Comment: Straight Cath as needed Performed By: #### [id number] # ### MARCUS Microbiology Subsection [address] [place] [address] u sodium on 2019-02 Sodium [Moles/Vol] 36 mmol/L Normal 02-21-2019 [facility] (30765) Comment: Performed By: #### [id number] # ### MARCUS Microbiology Subsection [address] [place] [address] u protein on 07 Protein [Mass/Vol] 4 1-14 mg/dL Normal 02-21-2019 [facility] (30892) Comment: Performed By: #### [id number] # ### MARCUS RemHemo [address] [place] [address] u creatinine on 201 06-22-07 U Creatinine 31 20-300 mg/dL Normal 02-21-2019 [facility] (93572) Comment: Performed By: #### [id number] # ### MARCUS RemHemo [address] [place] [address] u bhcg qlt on 02-21 HCG.beta subunit Qn Neg Neg m[IU]/mL Normal 02-21-2019 [facility] (00 000) Comment: Performed By: #### [id number] # ### MARCUS Microbiology Subsection [address] [place] [address] tsh on 2019-02-21 TSH Qn 4.82 0.30-5.60 mcIU/mL Normal 02-21-2019 [facility] (56949) Comment: Order Comment: With T4fr Ref kurt Performed By: #### [id number] # ### MARCUS Microbiology Subsection [address] [place] [address] salicylate on 02-21 Salicylate Lvl <1.5 4.0-20.0 Low 02-21-2019 [facility] (27719) Comment: Performed By: #### [id number] # ### MARCUS RemHemo [address] [place] [address] morph on 2019-02-21 Polychromasia 1+ Normal 02-21-2019 [facility] (40670) Comment: Order Comment: Straight Cath as needed Performed By: #### [id number] #### MARCUS Urinalysis Automated Suggs bsection [address] [place], [place] [address] RBC morphology finding SEE MORPHOLOGY Normal [facility] Sys tem (72878) Comment: Order Comment: Straight Cath as needed Performed By: #### [id number] #### MARCUS Urinalysis Automated Suggs bsection [address] [place] [address] Teardrop Cell 1+ Normal 02-21-2019 [facility] (86019) Comment: Order Comment: Straight Cath as needed Performed By: #### [id number] #### MARCUS Urinalysis Automated [facility] bsection [address] [place], [place] [address] magnesium on 02-21 Magnesium [Mass/Vol] 1.7 1.6-2.4 Int._Unit/L Normal 019 [facility] tem (29667) Comment: Performed By: #### [id number] # ### MARCUS Microbiology Subsection [address] [place] [address] lipase level on 201 06-22-07 Lipase Lvl 37 9-82 Int._Unit/L Normal 02-21-2019 [facility] (80947) Comment: Performed By: #### [id number] #### MARCUS Urinalysis Automated [facility] bsection [address] [place] [address] lactic acid on 2018 Lactate [Moles/Vol] 1.4 0.4-2.0 mmol/L Normal 02-21-2019 [facility] (00 000) Comment: Order Comment: Sepsis Reflex order due to high lactic acid level Performed By: #### [id number] # ### MARCUS RemHemo [address] [place] [address] Lactate [Moles/Vol] 2.2 0.4-2.0 mmol/L High 02-21-2019 [facility] (00 000) Comment: Performed By: #### [id number] # ### MARCUS RemHemo [address] [place] [address] hep func panel on Albumin [Mass/Vol] 4.0 3.4-5.0 gm/dL Normal 02-21-2019 [facility] (00 000) Comment: Performed By: #### [id number] #### MARCUS Urinalysis Automated [facility] bsection [address] [place] [address] Albumin/Globulin [Mass 1.5 1.1-1.9 ratio Normal [address] [place] [address]] Health Sys tem (43540) Comment: Performed By: #### [id number] #### MARCUS Urinalysis Automated [facility] bsection [address] [place] [address] Alk Phos 69 33-110 Int._Unit/L Normal 02-21-2019 [facility] (05938) Comment: Performed By: #### [id number] #### MARCUS Urinalysis Automated [facility] bsection [address] [place] [address] ALT [Catalytic 18 7-45 Int._Unit/L Normal 02-21-2019 [facility] (71005) Comment: Performed By: #### [id number] #### MARCUS Urinalysis Automated [facility] bsection [address] [place] [address] AST [Catalytic 33 9-39 Int._Unit/L Normal 02-21-2019 [facility] (64361) Comment: Performed By: #### [id number] #### MARCUS Urinalysis Automated [facility] bsection [address] [place] [address] Bili Direct 0.10 0.00-0.30 mg/dL Normal 02-21-2019 [facility] (40933) Comment: Performed By: #### [id number] #### MARCUS Urinalysis Automated [facility] bsection [address] [place] [address] Bili Indirect 0.33 mg/dL Normal 02-21-2019 [facility] (15634) Comment: Result Comment: No establish ed ranges available for the indirect bilirubin Performed By: #### [id number] #### MARCUS Urinalysis Automated [facility] bsection [address] [place] [address] Bili Total 0.43 0.00-1.20 mg/dL Normal 02-21-2019 [facility] (20798) Comment: Performed By: #### [id number] #### MRACUS Urinalysis Automated [facility] bsection [address] [place] [address] Globulin (S) [Mass/Vol] 3.0 2.0-4.0 G/DL Normal 2018 [facility] (00 000) Comment: Performed By: #### [id number] #### MARCUS Urinalysis Automated [facility] bsection [address] [place] [address] Protein [Mass/Vol] 6.6 6.4-8.2 gm/dL Normal 02-21-2019 [facility] (00 000) Comment: Performed By: #### [id number] #### MARCUS Urinalysis Automated [facility] bsection [address] [place] [address] gases - blood on 05-03-07 Allens Test. Positive Normal 02-21-2019 [facility] (88086) Comment: Performed By: #### [id number] # ### MARCUS JeriHemo [address] [place] [address] Base Excess. -9 -2-3 mmol/L Low 02-21-2019 [facility] (82758) Comment: Performed By: #### [id number] # ### MARCUS JeriHemo [address] [place] [address] CO2 Tot. 18 22-28 mmol/L Low 02-21-2019 [facility] (67368) Comment: Performed By: #### [id number] # ### MARCUS JeriHemo [address] [place] [address] CPAP/PEEP(cmH2O). 0 Normal 02-21-2019 [facility] (76537) Comment: Performed By: #### [id number] # ### MARCUS JeriHemo [facility] [place] [address] FiO2. 21 % Normal 02-21-2019 [facility] (07525) Comment: Performed By: #### [id number] # ### MARCUS JeriHemo [address] [place] [address] HCO#. 17.2 22.0-26.0 mmol/L Low 02-21-2019 [facility] (74105) Comment: Performed By: #### [id number] # ### MARCUS JeriHemo [facility] [place] [address] O2 Devices. Room Air Normal 02-21-2019 [facility] (47737) Comment: Performed By: #### [id number] # ### MARCUS JeriHemo [facility] [place] [address] OPID. [id number] Normal 02-21-2019 [facility] (57958) Comment: Performed By: #### [id number] # ### MARCUS JeriHemo [facility] [place] [address] Oxygen (Bld) [Partial 85 80-100 mmHg Normal 02-22-20 19 [facility]] System (00 000) Comment: Performed By: #### [id number] # ### MARCUS RemHemo [facility] [place] [address] Oxygen saturation in Blood 96 95-100 % Normal [facility] (00 000) Comment: Performed By: #### [id number] # ### MARCUS RemHemo [address] [place] [address] P CO2. 32.7 35.0-45.0 mmHg Low 02-21-2019 [facility] (68163) Comment: Performed By: #### [id number] # ### MARCUS RemHemo [address] [place] [address] Patient Temp. NOT CALCULATED Normal 02-21-2019 [facility] (72993) Comment: Performed By: #### [id number] # ### MARCUS JeriHemo [address] [place] [address] pH (Bld) 7.329 7.350-7.450 Low 02-21-2019 [facility] () Comment: Performed By: #### [id number] # ### MARCUS JeriHemo [facility] [place] [address] PSV/IP(cmH2O). 0 Normal 02-21-2019 [facility] () Comment: Performed By: #### [id number] # ### MARCUS RemHemo [facility] [place] [address] Sample Site. R rad Normal 02-21-2019 [facility] () Comment: Performed By: #### [id number] # ### MARCUS JeriHemo [address] [place] [address] Sample Type. Arterial Normal 02-21-2019 [facility] () Comment: Performed By: #### [id number] # ### MARCUS JeriHemo [facility] [place] [address] Set RR(b/min). 0 Normal 02-21-2019 [facility] (64403) Comment: Performed By: #### [id number] # ### MARCUS RemHemo [facility] [place] [address] Tidal Volume(mL). 0 Normal 02-21-2019 [facility] (02936) Comment: Performed By: #### [id number] # ### MARCUS RemHemo [address] [place] [address] Vent Mode. NOT CALCULATED Normal 02-21-2019 [facility] (99802) Comment: Performed By: #### [id number] # ### MARCUS RemHemo [address] [place] [address] Allens Test. Neg Normal 02-21-2019 [facility] (32478) Comment: Performed By: #### [id number] # ### MARCUS RemHemo [address] [place] [address] Base Excess. -8 -2-3 mmol/L Low 02-21-2019 [facility] (46441) Comment: Performed By: #### [id number] # ### MARCUS RemHemo [address] [place] [address] CO2 Tot. 19 22-28 mmol/L Low 02-21-2019 [facility] (20385) Comment: Performed By: #### [id number] # ### MARCUS RemHemo [facility] [place] [address] CPAP/PEEP(cmH2O). NOT CALCULATED Normal 019 [facility] (00 000) Comment: Performed By: #### [id number] # ### MARCUS RemHemo [address] [place] [address] FiO2. 21 % Normal 02-21-2019 [facility] (43051) Comment: Performed By: #### [id number] # ### MARCUS RemHemo [facility] [place] [address] HCO#. 17.9 22.0-26.0 mmol/L Low 02-21-2019 [facility] (30041) Comment: Performed By: #### [id number] # ### MARCUS RemHemo [facility] [place] [address] O2 Devices. Room Air Normal 02-21-2019 [facility] (27701) Comment: Performed By: #### [id number] # ### MARCUS RemHemo [address] [place] [address] OPID. [id number] Normal 02-21-2019 [facility] (32396) Comment: Performed By: #### [id number] # ### MARCUS RemHemo [address] [place] [address] Oxygen (Bld) [Partial 86 80-100 mmHg Normal 02-22-20 19 [facility]] System (00 000) Comment: Performed By: #### [id number] # ### MARCUSShawn WilcoxHemo [facility] [place] [address] Oxygen saturation in Blood 96 95-100 % Normal [facility] (00 000) Comment: Performed By: #### [id number] # ### MARCUS JeriHemo [facility] [place] [address] P CO2. 34.1 35.0-45.0 mmHg Low 02-21-2019 [facility] (78184) Comment: Performed By: #### [id number] # ### MARCUS RemHemo [address] [place] [address] Patient Temp. NOT CALCULATED Normal 02-21-2019 [facility] (54470) Comment: Performed By: #### [id number] # ### [place] [address] pH (Bld) 7.329 7.350-7.450 Low 02-21-2019 [facility] (42676) Comment: Performed By: #### [id number] # ### [place] [address] PSV/IP(cmH2O). NOT CALCULATED Normal 02-21-2019 [facility] (06504) Comment: Performed By: #### [id number] # ### [facility] Cent[facility] [address] [place] [address] Sample Site. R rad Normal 02-21-2019 [facility] (01495) Comment: Performed By: #### [id number] # ### MARCUS JeriHemo [address] [place] [address] Sample Type. Arterial Normal 02-21-2019 [facility] (30681) Comment: Performed By: #### [id number] # ### MARCUS [place] [address] Set RR(b/min). NOT CALCULATED Normal 02-21-2019 [facility] (70780) Comment: Performed By: #### [id number] # ### [facility] [address] [place] [address] Tidal Volume(mL). NOT CALCULATED Normal 019 [facility] (00 000) Comment: Performed By: #### [id number] # ### MARCUS RemHemo [facility] [place] [address] Vent Mode. NOT CALCULATED Normal 02-21-2019 [facility] (58950) Comment: Performed By: #### [id number] # ### MARCUS RemHemo [facility] [place] [id number] ethanol on Ethanol [Mass/Vol] <10 <=10 mg/dL Normal 02-21-2019 [facility] (83977) Comment: Performed By: #### [id number] # ### MARCUS Microbiology Subsection [address] [place] [address] egfr on 2019-02-21 GFR/1.73 sq M predicted 49 mL/min/1.73 m2 Normal 0 02-21-2019 [facility] (05395) (S/P/Bld) [Vol rate/Area] Comment: Order Comment: Straight Cath as needed Performed By: #### [id number] #### MARCUS Urinalysis Automated Suggs bsection [address] [place] [address] GFR/1.73 sq M predicted 40 mL/min/1.73 m2 Normal 0 02-21-2019 [facility] non[facility]bl[facility] (28476) (S/P/Bld) [Vol rate/Area] Comment: Order Comment: Straight Cath as needed Performed By: #### [id number] #### MARCUS Urinalysis Automated Suggs bsection [address] [place] [address] ck on 2019-02-21 Total CK 46 <=215 Int._Unit/L Normal 02-21-2019 [facility] (04403) Comment: Performed By: #### [id number] #### MARCUS Urinalysis Automated Suggs bsection [facility] [place] [address] cbc w/ auto diff on 2019-02-21 Erythrocyte distribution 14.7 11.5-14.5 % High 02-[address] [facility] (RBC) [Ratio] Health System (70450) Comment: Performed By: #### [id number] #### MARCUS Urinalysis Automated [facility] bsection [address] [place] [address] Hematocrit (Bld) [Volume 41.4 36.0-48.0 % Normal 02-21 [facility] (57302) Comment: Performed By: #### [id number] #### MARCUS Urinalysis Automated [facility] bsection [address] [place] [address] Hemoglobin (Bld) 13.3 12.0-16.0 G/DL Normal 02-21-2019 [facility] [Mass/Vol] Health Sy stem (75603) Comment: Performed By: #### [id number] #### MARCUS Urinalysis Automated [facility] bsection [address] [place] [address] MCH (RBC) [Entitic mass] 30.7 27.0-31.0 pg Normal 02-21 [facility] (00 000) Comment: Performed By: #### [id number] #### MARCUS Urinalysis Automated [facility] bsection [address] [place] [address] MCHC (RBC) [Mass/Vol] 32.2 33.0-37.0 G/DL Low 02-22-[address] [facility] (00 000) Comment: Performed By: #### [id number] #### MARCUS Urinalysis Automated [facility] bsection [address] [place] [address] MCV (RBC) [Entitic vol] 95.5 78.0-100.0 fL Normal 02-21 [facility] (17710) Comment: Performed By: #### [id number] #### MARCUS Urinalysis Automated [facility] bsection [address] [place] [address] Platelet mean volume 7.9 7.4-11.[address] [facility] (Bld) [Entitic vol] System (97086) Comment: Performed By: #### [id number] #### MARCUS Urinalysis Automated [facility] bsection [address] [place] [address] Platelets (Bld) [#/Vol] 66 130-400 E3/mcL Low 2018 [facility] () Comment: Performed By: #### [id number] #### MARCUS Urinalysis Automated [facility] bsection [address] [place] [address] RBC (Bld) [#/Vol] 4.34 3.90-5.40 E6/mcL Normal 02-21-2019 [facility] () Comment: Performed By: #### [id number] #### MARCUS Urinalysis Automated [facility] bsection [address] [place] [address] WBC (Bld) [#/Vol] 4.2 3.6-11.0 E3/mcL Normal 02-21-2019 [facility] () Comment: Performed By: #### [id number] #### MARCUS Urinalysis Automated [facility] bsection [address] [place] [address] bmp on 2019-02-21 Anion gap [Moles/Vol] 18 10-20 mEq/L Normal 02-22-[address] [facility] () Comment: Performed By: #### [id number] #### MARCUS Urinalysis Automated [facility] bsection [address] [place] [address] Calcium [Mass/Vol] 8.6 8.6-10.3 mg/dL Normal 02-21-2019 [facility] () Comment: Performed By: #### [id number] #### MARCUS Urinalysis Automated [facility] bsection [address] [place] [address] Chloride [Moles/Vol] 106 98-107 mEq/L Normal 9 [facility] () Comment: Performed By: #### [id number] #### MARCUS Urinalysis Automated [facility] bsection [address] [place] [address] CO2 [Moles/Vol] 16.0 21.0-32.0 mEq/L Low 02-21-2019 [facility] (17653) Comment: Performed By: #### [id number] #### MARCUS Urinalysis Automated [facility] bsection [address] [place] [address] Creatinine [Mass/Vol] 1.4 0.5-1.1 mg/dL High 02-22-20 [facility] (00 000) Comment: Performed By: #### [id number] #### MARCUS Urinalysis Automated [facility] bsection [address] [place] [address] Glucose [Mass/Vol] 165 70-99 mg/dL High 02-21-2019 [facility] (60439) Comment: Performed By: #### [id number] #### MARCUS Urinalysis Automated [facility] bsection [address] [place] [address] Potassium [Moles/Vol] 2.9 3.5-5.3 mEq/L Low 02-22-20 [facility] (00 000) Comment: Performed By: #### [id number] #### MARCUS Urinalysis Automated Suggs bsection [facility] [place] [address] Sodium [Moles/Vol] 137 136-145 mEq/L Normal 02-21-2019 [facility] ( 000) Comment: Performed By: #### [id number] #### MARCUS Urinalysis Automated Suggs bsection [address] [place] [address] Urea nitrogen [Mass/Vol] 14 6-23 mg/dL Normal 02-21 [facility] (00 000) Comment: Performed By: #### [id number] #### MARCUS Urinalysis Automated Suggs bsection [address] [place] [address] Urea nitrogen/Creatinine 10.0 5.4-30.0 ratio Normal 02-21 [facility] [Mass ratio] [facility] (11206) Comment: Performed By: #### [id number] #### MARCUS Urinalysis Automated [facility] bsection [address] [place] [address] auto diff on 02-21 Basophils (Bld) [#/Vol] 0.0 0.0-0.2 E3/mcL Normal 2018 [facility] (53260) Comment: Order Comment: Order Added b y Discern Expert. Performed By: #### [id number] # ### MARCUS Microbiology Subsection [address] [place] [address] Basophils/100 WBC (Bld) 0.4 0.0-2.0 % Normal 2018 [facility] (00 000) Comment: Order Comment: Order Added b y Discern Expert. Performed By: #### [id number] # ### MARCUS Microbiology Subsection [address] [place] [address] Eos Absolute 0.1 0.0-0.7 E3/mcL Normal 02-21-2019 [facility] (63514) Comment: Order Comment: Order Added b y Discern Expert. Performed By: #### [id number] # ### MARCUS Microbiology Subsection [address] [place] [address] Eosinophils/100 WBC (Bld) 1.4 0.0-11.0 % Normal [facility] (00 000) Comment: Order Comment: Order Added b y Discern Expert. Performed By: #### [id number] # ### MARCUS Microbiology Subsection [address] [place] [address] Lymphocytes (Bld) [#/Vol] 1.0 1.2-3.4 E3/mcL Low [facility] (00 000) Comment: Order Comment: Order Added b y Discern Expert. Performed By: #### [id number] # ### MARCUS Microbiology Subsection [address] [place] [address] Lymphocytes/100 WBC (Bld) 24.1 20.0-55.0 % Normal [facility] (90704) Comment: Order Comment: Order Added b y Discern Expert. Performed By: #### [id number] # ### MARCUS Microbiology Subsection [address] [place] [address] Cooper Absolute 0.5 0.0-0.7 E3/mcL Normal 02-21-2019 [facility] (15002) Comment: Order Comment: Order Added b y Discern Expert. Performed By: #### [id number] # ### MARCUS Microbiology Subsection [address] [place] [address] Monocytes/100 WBC (Bld) 10.8 0.0-10.0 % High 2018 [facility] (00 000) Comment: Order Comment: Order Added b y Discern Expert. Performed By: #### [id number] # ### MARCUS Microbiology Subsection [address] [place] [address] Neutro Absolute 2.7 1.4-6.5 E3/mcL Normal 02-21-2019 [facility] (83760) Comment: Order Comment: Order Added erma Aldana Expert. Performed By: #### [id number] # ### MARCUS Microbiology Subsection [address] [place] [address] Neutro Auto 63.3 37.0-75.0 % Normal 02-21-2019 [facility] (86746) Comment: Order Comment: Order Added erma Aldana Expert. Performed By: #### [id number] # ### MARCUS Microbiology Subsection [address] [place] [address] ammonia on Ammonia (P) [Mass/Vol] 55 16-53 mcmol/L High 019 [facility] (00 000) Comment: Performed By: #### [id number] # ### MARCUS Microbiology Subsection [address] [place] [address] acetamnphn lvl on Acetaminoph Lvl <10 10-30 Normal 02-21-2019 [facility] (22360) Comment: Performed By: #### [id number] # ### MARCUS Microbiology Subsection [address] [place] [address] 12432 nm myocardial perfusion single - stress only on 2018-12-26 NM Nuclear Report Normal 12-26-2018 [facility] Patient: PABLO OSMAN (75250) SINGLE - Med Rec#: [id number] (Age): 1975(43y) STRESS ONLY Height: Study Date: [...] on 2018-12-26 Nuclear Report 12-26-2018 [facility] (52873) Patient: PABLO OSMAN Med Rec#: [id number] (Age): 1975(43y ) Height: Study Date: 019 [...] 12/26/2018 3:48 PM EDT Nuclear Report 12-26-2018 [facility] (51516) Patient: PABLO OSMAN [facility] Rec#: [id number] (Age): 1975(43y) Height: Study Date: 12/26/2018 Weight: [...] Chest 2 Views Exam Date/Time: Normal 019 [facility] 12/21/2018 04:05 EST H ealt System Reason for Exam: (00 000) Cough Report STUDY: XR Chest 2 Views; 12/21/2018 4:05 am INDICATION: Cough. COMPARISON: 10/02/2018 ACCESSION NUMBER(S): [id number] ORDERING CLINICIAN: Bob Wick FINDINGS: No significant [...] Influenzae A Ag Negative Negative Normal 12-21-2018 [facility] (00 000) Comment: Result Comment: Test Perform ed by PCR Testing Performed By: #### [id number] #### MARCUS Urinalysis Automated Sug[facility] bsection [address] [place] [address] Influenzae B Ag Negative Negative Normal 12-21-2018 [facility] (00 000) Comment: Result Comment: Test Perform ed by PCR Testing Performed By: #### [id number] #### MARCUS Urinalysis Automated [facility] bsection [address] [place] [address] ua complete on 2018 Color (U) Minerva Yellow Abnormal 12-12-2018 [facility] (12464) Comment: Performed By: #### [id number] # ### MARCUS [facility] [address] [place] [address] Glucose (U) [Mass/Vol] Negative Negative mg/dL Normal 019 [facility] (54735) Comment: Performed By: #### [id number] # ### MARCUS Rem[facility] [address] [place] [address] Ketones Ql (U) Trace Normal 12-12-2018 [facility] (39204) Comment: Performed By: #### [id number] # ### MARCUS RemChem [address] [place] [address] RBC (U) [#/Vol] 3-5 0-3 Abnormal 12-12-2018 [facility] (72175) Comment: Performed By: #### [id number] # ### MARCUS [facility] [address] [place] [address] UA Blood 2+ Negative Abnormal 12-12-2018 [facility] (41436) Comment: Performed By: #### [id number] # ### MARCUS [facility] [address] [place] [address] UA Clarity Cloudy Clear Abnormal 12-12-2018 [facility] (63075) Comment: Performed By: #### [id number] # ### MARCUS RemChem [address] [place] [address] UA Hyal Cast 5-10 0-2 Abnormal 12-12-2018 [facility] (44216) Comment: Performed By: #### [id number] # ### MARCUS RemChem [address] [place] [address] UA Leuk Est 3+ Negative Abnormal 12-12-2018 [facility] (15718) Comment: Performed By: #### [id number] # ### MARCUS RemChem [address] [place] [address] UA Nitrite Negative Negative Normal 12-12-2018 [facility] (30488) Comment: Performed By: #### [id number] # ### MARCUS Rem[facility] [address] [place] [address] UA pH 5.0 4.6-8.0 Normal 12-12-2018 [facility] (77655) Comment: Performed By: #### [id number] # ### MARCUS [facility] [address] [place] [address] UA Protein Negative Negative Normal 12-12-2018 [facility] (81679) Comment: Performed By: #### [id number] # ### MARCUS [facility] [address] [place] [address] UA Spec Grav 1.020 1.003-1.030 Normal 12-12-2018 [facility] (60093) Comment: Performed By: #### [id number] # ### MARCUS [facility] [address] [place] [address] UA Squam Epithelial 20-30 0-5 Abnormal 12-12-2018 [facility] (27748) Comment: Performed By: #### [id number] # ### MARCUS [facility] [address] [place] [address] UA Urobilinogen 2.0 mg/dL Abnormal 12-12-2018 [facility] (85739) Comment: Result Comment: Due to a man ufacturing issue, low positive urobilinogen results may be fasely positi ve. Correlate with urine bilirubin and additional clinical/laborato ry findings to assess the risk of hemolytic anemia or liver disease. If clinically indicated, repeat testing with an alternate method is availabl e by contacting the laboratory within 24 hours. Performed By: #### [id number] # ### MARCUS [facility] [address] [place] [address] UA WBC 10-20 0-5 Abnormal 12-12-2018 [facility] (29585) Comment: Performed By: #### [id number] # ### MARCUS RemChem [address] [place] [address] Urobilinogen Qn (U) Negative Negative Normal 12-12-2018 [facility] (00 000) Comment: Performed By: #### [id number] # ### MARCUS [facility] [address] [place] [address] u drug screen on 06-12-24 U Amph Scr Negative Negative Normal 12-12-2018 [facility] (89889) Comment: Performed By: #### [id number] # ### MARCUS [facility] [address] [place] [address] U Kaylani Scr Negative Negative Normal 12-12-2018 [facility] (88907) Comment: Performed By: #### [id number] # ### MARCUS [facility] [address] [place] [address] U Benzodia Scr Negative Negative Normal 12-12-2018 [facility] (87473) Comment: Performed By: #### [id number] # ### MARCUS [facility] [address] [place] [address] U Cannab Scr Negative Negative Normal 12-12-2018 [facility] (78410) Comment: Performed By: #### [id number] # ### MARCUS [facility] [address] [place] [address] U Cocaine Scr Negative Negative Normal 12-12-2018 [facility] (75547) Comment: Performed By: #### [id number] # ### MARCUS Rem[employer] [address] [place] [address] U Opiate Scr Negative Negative Normal 12-12-2018 [facility] (91390) Comment: Performed By: #### [id number] # ### MARCUSShawn WilcoxChem [address] [place] [address] U PCP Scr Negative Negative Normal 12-12-2018 [facility] (80673) Comment: Performed By: #### [id number] # ### MARCUSShawn Zelaya [address] [place] [address] troponin-i on 12-12 Troponin I.cardiac .01 .00-.03 ng/mL Normal 12-12-2018 [facility] [Mass/Vol] Health [facility] (55590) Comment: Performed By: #### [id number] # ### MARCUSShawn Zelaya [facility] [place] [address] magnesium on 12-12 Magnesium [Mass/Vol] 2.0 1.6-2.4 mg/dL Normal 9 [facility] (00 000) Comment: Performed By: #### [id number] # ### MARCUSShawn WilcoxChem [address] [place] [address] hep func panel on Albumin [Mass/Vol] 4.4 3.4-5.0 gm/dL Normal 12-12-2018 [facility] (00 000) Comment: Performed By: #### [id number] # ### MARCUS Zelaya [address] [place] [address] Albumin/Globulin [Mass 1.3 1.1-1.9 ratio Normal [facility]] Health Sys tem (53013) Comment: Performed By: #### [id number] # ### MARCUS [facility] [address] [place] [address] Alk Phos 69 33-110 Int._Unit/L Normal 12-12-2018 [facility] (64838) Comment: Performed By: #### [id number] # ### MARCUS [facility] [address] [place] [address] ALT [Catalytic 34 7-45 Int._Unit/L Normal 12-12-2018 [facility] (39604[facility] Comment: Performed By: #### [id number] # ### MARCUS [facility] [address] [place] [address] AST [Catalytic 69 9-39 Int._Unit/L High 12-12-2018 [facility] (24241) Comment: Performed By: #### [id number] # ### MARCUS [facility] [address] [place] [address] Bili Direct 0.26 0.00-0.30 mg/dL Normal 12-12-2018 [facility] (58137) Comment: Performed By: #### [id number] # ### MARCUS [facility] [address] [place] [address] Bili Indirect 0.57 mg/dL Normal 12-12-2018 [facility] (88611) Comment: Result Comment: No establish ed ranges available for the indirect bilirubin Performed By: #### [id number] # ### MARCUS [facility] [address] [place] [address] Bili Total 0.83 0.00-1.20 mg/dL Normal 12-12-2018 [facility] (44890) Comment: Performed By: #### [id number] # ### MARCUS [facility] [address] [place] [address] Globulin (S) [Mass/Vol] 3.0 2.0-4.0 G/DL Normal 2018 [facility] (00 000) Comment: Performed By: #### [id number] # ### MARCUS [facility] [address] [place] [address] Protein [Mass/Vol] 7.7 6.4-8.2 gm/dL Normal 12-12-2018 [facility] (00 000) Comment: Performed By: #### [id number] # ### MARCUS [facility] [address] [place] [address] ethanol on Ethanol [Mass/Vol] <10 <=10 mg/dL Normal 12-12-2018 [facility] (65129) Comment: Performed By: #### [id number] # ### MARCUS [facility] [address] [place] [address] egfr on 2018-12-12 GFR/1.73 sq M predicted 42 mL/min/1.73 m2 Normal 0 12-12-2018 [facility] among non-blacks [facility] (45366) (S/P/Bld) [Vol rate/Area] Comment: Order Comment: With T4fr Ref kurt Performed By: #### [id number] # ### MARCUSShawn Zelaya [address] [place] [address] GFR/1.73 sq M predicted 35 mL/min/1.73 m2 Normal 0 12-12-2018 [facility] among non-blacks [facility] (30935) (S/P/Bld) [Vol rate/Area] Comment: Order Comment: With T4fr Ref kurt Performed By: #### [id number] # ### MARCUSShawn WilcoxChem [facility] [place] [address] cbc w/ auto diff on 2018-12-12 Erythrocyte distribution 13.8 11.5-14.5 % Normal 12-12 [facility] width (RBC) [Ratio] Health System (76816) Comment: Performed By: #### [id number] # ### MARCUSShawn Zelaya [facility] [place] [address] Hematocrit (Bld) [Volume 44.1 36.0-48.0 % Normal 12-12 [facility] fraction] Health Sys tem (18700) Comment: Performed By: #### [id number] # ### MARCUSShawn Zelaya [address] [place] [address] Hemoglobin (Bld) 14.4 12.0-16.0 G/DL Normal 12-12-2018 [facility] [Mass/Vol] Health Sy [facility] (68557) Comment: Performed By: #### [id number] # ### MARCUSShawn WilcoxChem [address] [place] [address] MCH (RBC) [Entitic mass] 30.3 27.0-31.0 pg Normal 12-12 [facility] (00 000) Comment: Performed By: #### [id number] # ### MARCUSShawn [facility]Chem [address] [place] [address] MCHC (RBC) [Mass/Vol] 32.7 33.0-37.0 G/DL Low 12-12-[address] [facility] (00 000) Comment: Performed By: #### [id number] # ### MARCUS Zelaya [address] [place] [address] MCV (RBC) [Entitic vol] 92.9 78.0-100.0 fL Normal 12-12 [facility] (64978) Comment: Performed By: #### [id number] # ### MARCUS [facility] [address] [place] [address] Platelet mean volume 8.1 7.4-11.[address] [facility] (Bld) [Entitic vol] System (65618) Comment: Performed By: #### [id number] # ### MARCUS [employer] [facility] [place] [address] Platelets (Bld) [#/Vol] 122 130-400 E3/mcL Low 2018 [facility] (00 000) Comment: Performed By: #### [id number] # ### MARCUS [employer] [facility] [place] [address] RBC (Bld) [#/Vol] 4.75 3.90-5.40 E6/mcL Normal 12-12-2018 [facility] (00 000) Comment: Performed By: #### [id number] # ### MARCUS [employer] [address] [place] [address] WBC (Bld) [#/Vol] 6.2 3.6-11.0 E3/mcL Normal 12-12-2018 [facility] (00 000) Comment: Performed By: #### [id number] # ### MARCUS [employer] [facility] [place] [address] bmp on 2018-12-12 Anion gap [Moles/Vol] 16 10-20 mEq/L Normal 12-12-[address] [facility] (00 000) Comment: Performed By: #### [id number] # ### MARCUSShawn WilcoxPixc [facility] [place] [address] Calcium [Mass/Vol] 9.5 8.6-10.3 mg/dL Normal 12-12-2018 [facility] (00 000) Comment: Performed By: #### [id number] # ### MARCUSShawn WilcoxPixc [facility] [place] [address] Chloride [Moles/Vol] 105 98-107 mEq/L Normal 9 [facility] (00 000) Comment: Performed By: #### [id number] # ### MARCUS [employer] [address] [place] [address] CO2 [Moles/Vol] 20.0 21.0-32.0 mEq/L Low 12-12-2018 [facility] (85295) Comment: Performed By: #### [id number] # ### MARCUS [employer] [facility] [place] [address] Creatinine [Mass/Vol] 1.6 0.5-1.1 mg/dL High 12-12-[address] [facility] (00 000) Comment: Performed By: #### [id number] # ### MARCUS [employer] [facility] [place] [address] Glucose [Mass/Vol] 150 70-99 mg/dL High 12-12-2018 [facility] (77508) Comment: Performed By: #### [id number] # ### MARCUS [employer] [facility] [place] [address] Potassium [Moles/Vol] 4.4 3.5-5.3 mEq/L Normal 12-12-[address] [facility] (00 000) Comment: Performed By: #### [id number] # ### MARCUS [employer] [facility] [place] [address] Sodium [Moles/Vol] 137 136-145 mEq/L Normal 12-12-2018 [facility] (00 000) Comment: Performed By: #### [id number] # ### MARCUS [employer] [facility] [place] [address] Urea nitrogen [Mass/Vol] 27 6-23 mg/dL High 12-12 [facility] (00 000) Comment: Performed By: #### [id number] # ### MARCUS [employer] [facility] [place] [address] Urea nitrogen/Creatinine 16.9 5.4-30.0 ratio Normal 12-12 [facility] [Mass ratio] [facility] (98650) Comment: Performed By: #### [id number] # ### MARCUS [employer] [facility] [place] [address] auto diff on 2019-0 2-25 Basophils (Bld) [#/Vol] 0.0 0.0-0.2 E3/mcL Normal 2018 [facility] (83503) Comment: Order Comment: With T4fr Ref krut Performed By: #### [id number] # ### MARCUS [employer] [address] [place] [address] Basophils/100 WBC (Bld) 0.4 0.0-2.0 % Normal 2018 [facility] (00 000) Comment: Order Comment: With T4fr Ref kurt Performed By: #### [id number] # ### MARCUS [employer] [facility] [place] [address] Eos Absolute 0.0 0.0-0.7 E3/mcL Normal 12-12-2018 [facility] (79499) Comment: Order Comment: With T4fr Ref kurt Performed By: #### [id number] # ### MARCUS [employer] [address] [place] [address] Eosinophils/100 WBC (Bld) 0.1 0.0-11.0 % Normal 11-19 [facility] (00 000) Comment: Order Comment: With T4fr Ref kurt Performed By: #### [id number] # ### MARCUS [employer] [facility] [place] [address] Lymphocytes (Bld) [#/Vol] 0.6 1.2-3.4 E3/mcL Low 11-19 [facility] (00 000) Comment: Order Comment: With T4fr Ref kurt Performed By: #### [id number] # ### MARCUS [employer] [address] [place] [address] Lymphocytes/100 WBC (Bld) 9.6 20.0-55.0 % Low 11-19 [facility] (00 000) Comment: Order Comment: With T4fr Ref kurt Performed By: #### [id number] # ### MARCUS [facility] [address] [place] [address] Cooper Absolute 0.6 0.0-0.7 E3/mcL Normal 12-12-2018 [facility] (87159) Comment: Order Comment: With T4fr Ref kurt Performed By: #### [id number] # ### MARCUS [employer] [address] [place] [address] Monocytes/100 WBC (Bld) 9.4 0.0-10.0 % Normal 2018 [facility] (00 000) Comment: Order Comment: With T4fr Ref kurt Performed By: #### [id number] # ### MARCUS [employer] [address] [place] [address] Neutro Absolute 5.0 1.4-6.5 E3/mcL Normal 12-12-2018 [facility] (32941) Comment: Order Comment: With T4fr Ref kurt Performed By: #### [id number] # ### MARCUS [employer] [address] [place] [address] Neutro Auto 80.5 37.0-75.0 % High 12-12-2018 [facility] (29600) Comment: Order Comment: With T4fr Ref kurt Performed By: #### [id number] # ### MARCUS [employer] [address] [place] [address] ua complete on 2018 Color (U) Yellow Yellow Normal 12-03-2018 [facility] (40531) Comment: Performed By: #### [id number] #### MARCUS [facility] [place] [address] Glucose (U) [Mass/Vol] Negative Negative mg/dL Normal 019 [facility] (15510) Comment: Performed By: #### [id number] #### MARCUS [employer] [address] [place] [address] Ketones Ql (U) Negative Negative Normal 12-03-2018 [facility] (68046) Comment: Performed By: #### [id number] #### MARCUS [employer] [address] [place] [address] RBC (U) [#/Vol] 3-5 0-3 Abnormal 12-03-2018 [facility] (03965) Comment: Performed By: #### [id number] #### MARCUS [employer] [address] [place] [address] UA Blood Negative Negative Normal 12-03-2018 [facility] (08741) Comment: Performed By: #### [id number] #### MARCUS [employer] [address] [place] [address] UA Bacteria 1+ None /HPF Abnormal 12-03-2018 [facility] (83091) Comment: Performed By: #### [id number] #### MARCUS [employer] [address] [place] [address] UA Clarity SltCloudy Clear Abnormal 12-03-2018 [facility] (62067) Comment: Performed By: #### [id number] #### MARCUS [employer] [address] [place] [address] UA Leuk Est Trace Negative Normal 12-03-2018 [facility] (61997) Comment: Performed By: #### [id number] #### MARCUS [employer] [address] [place] [address] UA Nitrite Negative Negative Normal 12-03-2018 [facility] (02244) Comment: Performed By: #### [id number] #### MARCUS [employer] [address] [place] [address] UA pH 6.0 4.6-8.0 Normal 12-03-2018 [facility] (76702) Comment: Performed By: #### [id number] #### MARCUS [employer] [address] [place] [address] UA Protein Negative Negative Normal 12-03-2018 [facility] (49607) Comment: Performed By: #### [id number] #### MARCUS [employer] [address] [place] [address] UA Spec Grav 1.016 1.003-1.030 Normal 12-03-2018 [facility] (62771) Comment: Performed By: #### [id number] #### MARCUS [employer] [address] [place] [address] UA Squam Epithelial 10-20 0-5 Abnormal 12-03-2018 [facility] (02694) Comment: Performed By: #### [id number] #### MARCUS [employer] [address] [place] [address] UA Urobilinogen Negative Normal 12-03-2018 [facility] (86069) Comment: Result Comment: Due to a man ufacturing issue, low positive urobilinogen results may be fasely positi ve. Correlate with urine bilirubin and additional clinical/laborato ry findings to assess the risk of hemolytic anemia or liver disease. If clinically indicated, repeat testing with an alternate method is availabl e by contacting the laboratory within 24 hours. Performed By: #### [id number] #### MARCUS [employer] [facility] [place] [address] UA WBC 5-10 0-5 Abnormal 12-03-2018 [facility] (68352) Comment: Performed By: #### [id number] #### MARCUS [employer] [facility] [place] [address] Urobilinogen Qn (U) Negative Negative Normal 12-03-2018 [facility] (00 000) Comment: Performed By: #### [id number] #### MARCUS [employer] [facility] [place] [address] u bhcg qlt on 12-03 HCG.beta subunit Qn Neg Neg m[IU]/mL Normal 12-03-2018 [facility] (00 000) Comment: Performed By: #### [id number] #### [place]Shawn [address] [place] [address] lipase level on 201 06-19-16 Lipase Lvl 38 9-82 Int._Unit/L Normal 12-03-2018 [facility] (04529) Comment: Performed By: #### [id number] #### M[place]USShawn [address] [place] [address] egfr on 2018-12-03 GFR/1.73 sq M predicted 56 mL/min/1.73 m2 Normal 0 12-03-2018 [facility] among non-blacks [facility] (71644) (S/P/Bld) [Vol rate/Area] Comment: Order Comment: Order added b y Discern Expert. Performed By: #### [id number] #### M[place]Shawn [address] [place] [address] GFR/1.73 sq M predicted 46 mL/min/1.73 m2 Normal 0 12-03-2018 [facility] non-blacks [facility] (29763) (S/P/Bld) [Vol rate/Area] Comment: Order Comment: Order added erma Aldana Expert. Performed By: #### [id number] #### MARCUS [employer] [facility] [place] [address] ct abdomen/pelvis w/o contrast on 2018-12-03 CT Abdomen/Pelvis w/o Exam Date/Time: Normal Zoroastrianism Contrast 12/03/2018 00:08 EST [facility] Reason for Exam: Sys tem (86864) Pain Report STUDY: CT Abdomen/Pelvis w/o Contrast; 12/03/2018 12:08 am INDICATION: Pain. COMPARISON: 09/22/2018 ACCESSION NUMBER(S): [id number] ORDERING CLINICIAN: Heidy Lane TECHNIQUE: Axial noncontrast [...] Albumin [Mass/Vol] 3.6 3.4-5.0 gm/dL Normal 12-03-2018 [facility] (00 000) Comment: Performed By: #### [id number] #### MARCUS [employer] [address] [place] [address] Albumin/Globulin [Mass 1.5 1.1-1.9 ratio Normal 019 [facility] (67570) Comment: Performed By: #### [id number] #### MARCUSShawn [facility] [address] [place] [address] Alk Phos 69 33-110 Int._Unit/L Normal 12-03-2018 [facility] (46439) Comment: Performed By: #### [id number] #### MARCUS [employer] [address] [place] [address] ALT [Catalytic 13 7-45 Int._Unit/L Normal 12-03-2018 [facility] (54750) Comment: Performed By: #### [id number] #### MARCUS [employer] [address] [place] [address] Anion gap [Moles/Vol] 12 10-20 mEq/L Normal 12-03-[address] [facility] (00 000) Comment: Performed By: #### [id number] #### MARCUS [employer] [address] [place] [address] AST [Catalytic 19 9-39 Int._Unit/L Normal 12-03-2018 [facility] (96137) Comment: Performed By: #### [id number] #### MARCUS [employer] [address] [place] [address] Bili Total 0.35 0.00-1.20 mg/dL Normal 12-03-2018 [facility] (18438) Comment: Performed By: #### [id number] #### MARCUS [employer] [address] [place] [address] Calcium [Mass/Vol] 8.3 8.6-10.3 mg/dL Low 12-03-2018 [facility] (95379) Comment: Performed By: #### [id number] #### MARCUS [employer] [address] [place] [address] Chloride [Moles/Vol] 110 98-107 mEq/L High 9 [facility] (00 000) Comment: Performed By: #### [id number] #### MARCUS [employer] [facility] [place] [address] CO2 [Moles/Vol] 22.0 21.0-32.0 mEq/L Normal 12-03-2018 [facility] (00 000) Comment: Performed By: #### [id number] #### MARCUS [address] [place] [address] Creatinine [Mass/Vol] 1.3 0.5-1.1 mg/dL High 12-03-19 [facility] (00 000) Comment: Performed By: #### [id number] #### MARCUS [employer] [facility] [place] [address] Globulin (S) [Mass/Vol] 2.0 2.0-4.0 G/DL Normal 2018 [facility] (00 000) Comment: Performed By: #### [id number] #### MARCUSShawn [employer] [address] [place] [address] Glucose [Mass/Vol] 133 70-99 mg/dL High 12-03-2018 [facility] (69922) Comment: Performed By: #### [id number] #### MARCUS [employer] [address] [place] [address] Potassium [Moles/Vol] 4.2 3.5-5.3 mEq/L Normal 12-03-19 [facility] (00 000) Comment: Performed By: #### [id number] #### MARCUS [employer] [address] [place] [address] Protein [Mass/Vol] 6.0 6.4-8.2 gm/dL Low 12-03-2018 [facility] (56864) Comment: Performed By: #### [id number] #### MARCUSShawn [employer] [facility] [place] [address] Sodium [Moles/Vol] 140 136-145 mEq/L Normal 12-03-2018 [facility] (00 000) Comment: Performed By: #### [id number] #### MARCUS [employer] [address] [place] [address] Urea nitrogen [Mass/Vol] 9 6-23 mg/dL Normal 12-03 [facility] (00 000) Comment: Performed By: #### [id number] #### MARCUS [facility] [address] [place] [address] Urea nitrogen/Creatinine 6.9 5.4-30.0 ratio Normal 12-03 [facility] [Mass ratio] [facility] (43187) Comment: Performed By: #### [id number] #### MARCUSShawn [facility] [address] [place] [address] cbc w/ auto diff on 2018-12-03 Erythrocyte distribution 12.9 11.5-14.5 % Normal 12-03 [facility] width (RBC) [Ratio] [facility] (47372) Comment: Performed By: #### [id number] #### MARCUSShawn Zelaya [facility] [place] [address] Hematocrit (Bld) [Volume 42.4 36.0-48.0 % Normal 12-03 [facility] fraction] Health Sys tem (90255) Comment: Performed By: #### [id number] #### MARCUS [employer] [address] [place] [address] Hemoglobin (Bld) 14.1 12.0-16.0 G/DL Normal 12-03-2018 [facility] [Mass/Vol] Health Sy stem (55772) Comment: Performed By: #### [id number] #### MARCUS JeriFabian [address] [place] [address] MCH (RBC) [Entitic mass] 30.5 27.0-31.0 pg Normal 12-03 [facility] (00 000) Comment: Performed By: #### [id number] #### MARCUS [employer] [address] [place] [address] MCHC (RBC) [Mass/Vol] 33.3 33.0-37.0 G/DL Normal 12-03-[address] [facility] (00 000) Comment: Performed By: #### [id number] #### MARCUS [employer] [address] [place] [address] MCV (RBC) [Entitic vol] 91.5 78.0-100.0 fL Normal 12-03 [facility] (32236) Comment: Performed By: #### [id number] #### MARCUS Zelaya [facility] [place] [address] Platelet mean volume (Bld) 7.2 7.4-11.[address] [facility] [Entitic vol] System (83428) Comment: Performed By: #### [id number] #### MARCUS Zelaya [facility] [place] [address] Platelets (Bld) [#/Vol] 121 130-400 E3/mcL Low 2018 [facility] (00 000) Comment: Performed By: #### [id number] #### MARCUS [address] [address] RBC (Bld) [#/Vol] 4.64 3.90-5.40 E6/mcL Normal 12-03-2018 [facility] (00 000) Comment: Performed By: #### [id number] #### MARCUS [address] [address] WBC (Bld) [#/Vol] 4.5 3.6-11.0 E3/mcL Normal 12-03-2018 [facility] (00 000) Comment: Performed By: #### [id number] #### MARCUS [address] [place] [address] auto diff on 2018-0 16 Basophils (Bld) [#/Vol] 0.0 0.0-0.2 E3/mcL Normal 2018 [facility] (79415) Comment: Order Comment: Order added b y Discern Expert. Performed By: #### [id number] #### MARCUS [address] [place] [address] Basophils/100 WBC (Bld) 0.6 0.0-2.0 % Normal 2018 [facility] (00 000) Comment: Order Comment: Order added b y Discern Expert. Performed By: #### [id number] #### MARCUS [address] [place] [address] Eos Absolute 0.1 0.0-0.7 E3/mcL Normal 12-03-2018 [facility] (44072) Comment: Order Comment: Order added erma lizama Discern Expert. Performed By: #### [id number] #### MARCUS Zelaya [address] [place] [address] Eosinophils/100 WBC (Bld) 2.6 0.0-11.0 % Normal 11-18 [facility] (00 000) Comment: Order Comment: Order added b y Discern Expert. Performed By: #### [id number] #### MARCUS [employer] [address] [place] [address] Lymphocytes (Bld) [#/Vol] 1.2 1.2-3.4 E3/mcL Normal 11-18 [facility] tem (86597) Comment: Order Comment: Order added b y Discern Expert. Performed By: #### [id number] #### MARCUS [address] [address] Lymphocytes/100 WBC (Bld) 27.2 20.0-55.0 % Normal 11-18 [facility] (93806) Comment: Order Comment: Order added b y Discern Expert. Performed By: #### [id number] #### MARCUS [employer] [address] [place] [address] Cooper Absolute 0.3 0.0-0.7 E3/mcL Normal 12-03-2018 [facility] (31029) Comment: Order Comment: Order added b y Discern Expert. Performed By: #### [id number] #### MARCUS [address] [address] Monocytes/100 WBC (Bld) 7.7 0.0-10.0 % Normal 2018 [facility] (00 000) Comment: Order Comment: Order added b y Discern Expert. Performed By: #### [id number] #### MARCUS [employer] [facility] [place] [address] Neutro Absolute 2.8 1.4-6.5 E3/mcL Normal 12-03-2018 [facility] (19055) Comment: Order Comment: Order added b y Discern Expert. Performed By: #### [id number] #### MARCUS [employer] [address] [place] [address] Neutro Auto 61.9 37.0-75.0 % Normal 12-03-2018 [facility] (83855) Comment: Order Comment: Order added b y Katya Expert. Performed By: #### [id number] #### MARCUS [facility] [address] [place] [address] ct head or brain w/ + w/o contrast on 2018-12-01 CT Head or Brain Exam Date/Time: Normal 019 [facility] w/ + w/o Contrast 12/01/2018 12:05 [facility] Reason for Exam: (00 000) ABN GAIT Report STUDY: CT Head or Brain w/ + w/o Contrast; 12/01/2018 12:05 pm INDICATION: ABN GAIT. COMPARISON: 04/29/2016 ACCESSION NUMBER(S): [id number] ORDERING CLINICIAN: Ana Hodge TECHNIQUE: Axial images [...] Ag IA Final Report: Normal 11-27-19 19 [facility] (Unsp spec) [facility] screen negative (000 00) Comment: Performed By: #### [id number] #### [place] [address] lipid panel on 2018 Cholesterol in HDL mass 43 40-59 mg/dL Normal 2018 [facility] (12669) Comment: Performed By: #### GLUX #### Unless otherwise noted, all testing performed by [facility] [address] [place] [address] CLIA: [id number] Wire Hanger: Ismael vines M.D. Cholesterol in LDL mass 163 10-150 mg/dL High 2018 [facility] pitals (16065) Comment: Performed By: #### GLUX #### Unless otherwise noted, all testing performed by [facility] [address] [place] [address] CLIA: [id number] Wire Hanger: Ismael vines M.D. Cholesterol in VLDL mass 41 5-40 mg/dL High 11-22 [facility] pitals (96788) Comment: Performed By: #### GLUX #### Unless otherwise noted, all testing performed by [facility] l [address] [place] [address] CLIA: [id number] Wire Hanger: Ismael vines M.D. Cholesterol mass conc 247 100-199 mg/dL High 11-22-19 19 [facility] pitals (33939) Comment: Performed By: #### GLUX #### Unless otherwise noted, all testing performed by [facility] [address] [place] [address] CLIA: [id number] Wire Hanger: Ismael vines M.D. Cholesterol.total/Cholesterol in HDL 5.7 3.2-5.0 [facility] h 11-22-2018 [facility] mass ratio [facility] (85941) Comment: Result Comment: Female Coron xavier Heart Disease Risk Factor (CHDRF): Average risk= 4.4 1/2 Average risk= 3.3 2 times Average risk= 7.1 Performed By: #### GLUX #### Unless otherwise noted, all testing performed by [facility] [address] [facility] [place] [address] CLIA: [id number] Wire Hanger: Ismael vines M.D. Triglyceride mass conc 206 30-150 mg/dL High 019 [facility] (47819) Comment: Performed By: #### GLUX #### Unless otherwise noted, all testing performed by [facility] [address] [facility] [place] [address] CLIA: [id number] Wire Hanger: Ismael vines M.D. No panel information on 2018-11-22 Cholesterol in HDL mass conc 43 40 - 59 mg/dL 0 11-22-2018 [facility] (60813) Cholesterol in LDL mass conc 163 10 - 150 mg/dL High 0 11-22-2018 [facility] (97463) Cholesterol in VLDL mass conc 41 5 - 40 mg/dL High 11-22-2018 [facility] (78781) Cholesterol mass conc 247 100 - 199 mg/dL High 11-22-19 19 [facility] (54324) Cholesterol.total/Cholesterol 5.7 OTH - OTH High 11-22-2018 [facility] (07709) in HDL mass ratio Comment: Female Coronary Heart Diseas e Risk Factor (CHDRF): Average risk= 4.4 1/2 Average risk= 3.3 2 times Average risk= 7.1 Interpretation and review Abnormal [facility] (98415) of laboratory results Triglyceride mass conc 206 30 - 150 mg/dL High 019 [facility] (11323) zzplt morph on 2018 Platelet morphology finding ENLARGED Normal [facility] (00 000) Comment: Performed By: #### [id number] # ### MARCUS [employer] [address] [place] [address] Platelets (Bld) [#/Vol] DECREASED Normal 2018 [facility] (00 000) Comment: Performed By: #### [id number] # ### MARCUS [employer] [address] [place] [address] ua complete on 2018 Color (U) Straw Yellow Normal 11-17-2018 [facility] (03603) Comment: Performed By: #### [id number] # ### MARCUS [employer] [address] [place] [address] Glucose (U) [Mass/Vol] Negative Negative mg/dL Normal [address] [place], [place] [address]s tem (00781) Comment: Performed By: #### [id number] # ### MARCUS [employer] [address] [place] [address] Ketones Ql (U) Negative Negative Normal 11-17-2018 [facility] (57364) Comment: Performed By: #### [id number] # ### MARCUS [employer] [address] [place] [address] UA Blood Negative Negative Normal 11-17-2018 [facility] (14822) Comment: Performed By: #### [id number] # ### MARCUS [employer] [address] [place] [address] UA Clarity Clear Clear Normal 11-17-2018 [facility] (06836) Comment: Performed By: #### [id number] # ### MARCUS [employer] [address] [place] [address] UA Leuk Est Negative Negative Normal 11-17-2018 [facility] (71160) Comment: Performed By: #### [id number] # ### MARCUS [employer] [address] [place] [address] UA Nitrite Negative Negative Normal 11-17-2018 [facility] (59600) Comment: Performed By: #### [id number] # ### MARCUS [employer] [address] [place] [address] UA pH 6.0 4.6-8.0 Normal 11-17-2018 [facility] (81394) Comment: Performed By: #### [id number] # ### MARCUS [facility] [address] [place] [address] UA Protein Negative Negative Normal 11-17-2018 [facility] (46289) Comment: Performed By: #### [id number] # ### MARCUS [facility] [facility] [place] [address] UA Spec Grav 1.009 1.003-1.030 Normal 11-17-2018 [facility] (06206) Comment: Performed By: #### [id number] # ### MARCUS [employer] [address] [place] [address] UA Squam Epithelial 0-5 0-5 Normal 11-17-2018 [facility] (93936) Comment: Performed By: #### [id number] # ### MARCUS [employer] [address] [place] [address] UA Urobilinogen Negative Normal 11-17-2018 [facility] (80905) Comment: Result Comment: Due to a man ufacturing issue, low positive urobilinogen results may be fasely positi ve. Correlate with urine bilirubin and additional clinical/laborato ry findings to assess the risk of hemolytic anemia or liver disease. If clinically indicated, repeat testing with an alternate method is availabl e by contacting the laboratory within 24 hours. Performed By: #### [id number] # ### MARCUSShawn [employer] [address] [place] [address] UA WBC 0-5 0-5 Normal 11-17-2018 [facility] (40713) Comment: Performed By: #### [id number] # ### MARCUS Zelaya [address] [place] [address] Urobilinogen Qn (U) Negative Negative Normal 11-17-2018 [facility] (00 000) Comment: Performed By: #### [id number] # ### MARCUSShawn [facility] [place] [address] u bhcg qlt on 11-17 HCG.beta subunit Qn Neg Neg m[IU]/mL Normal 11-17-2018 [facility] (00 000) Comment: Performed By: #### [id number] # ### [facility] [employer] [address] [place] [address] morph on 2018-11-17 RBC morphology finding Nom NORMAL Normal [facility] (d) System (00 000) Comment: Order Comment: Order Added erma y Katya Expert. Performed By: #### [id number] # ### MARCUS [facility] [address] [place] [address] lipase level on 201 06-18-31 Lipase Lvl 48 9-82 Int._Unit/L Normal 11-17-2018 [facility] (92270) Comment: Performed By: #### [id number] # ### MARCUS [employer] [address] [place] [address] hep func panel on Albumin [Mass/Vol] 3.8 3.4-5.0 gm/dL Normal 11-17-2018 [facility] (00 000) Comment: Performed By: #### [id number] # ### MARCUS [employer] [facility] [place] [address] Albumin/Globulin [Mass 1.8 1.1-1.9 ratio Normal [address] [place] [address] Health Sys tem (84334) Comment: Performed By: #### [id number] # ### MARCUS [facility] [address] [place] [address] Alk Phos 59 33-110 Int._Unit/L Normal 11-17-2018 [facility] (93399) Comment: Performed By: #### [id number] # ### MARCUS [employer] [address] [place] [address] ALT [Catalytic 18 7-45 Int._Unit/L Normal 11-17-2018 [facility] activity/Vol] [facility] (65106) Comment: Performed By: #### [id number] # ### MARCUS [employer] [address] [place] [address] AST [Catalytic 28 9-39 Int._Unit/L Normal 11-17-2018 [facility] activity/Vol] [facility] (15601) Comment: Performed By: #### [id number] # ### MARCUS [employer] [address] [place] [address] Bili Direct 0.07 0.00-0.30 mg/dL Normal 11-17-2018 [facility] (08655) Comment: Performed By: #### [id number] # ### MARCUS [employer] [facility] [place] [address] Bili Indirect 0.38 mg/dL Normal 11-17-2018 [facility] (05260) Comment: Result Comment: No establish ed ranges available for the indirect bilirubin Performed By: #### [id number] # ### MARCUS [address] [place] [address] Bili Total 0.45 0.00-1.20 mg/dL Normal 11-17-2018 [facility] (04255) Comment: Performed By: #### [id number] # ### MARCUS [address] [address] Globulin (S) [Mass/Vol] 2.0 2.0-4.0 G/DL Normal 2018 [facility] (00 000) Comment: Performed By: #### [id number] # ### MARCUSShawn Wilcox[address] [address] Protein [Mass/Vol] 5.9 6.4-8.2 gm/dL Low 11-17-2018 [facility] (38365) Comment: Performed By: #### [id number] # ### MARCUS [address] [address] egfr on 2018-11-17 GFR/1.73 sq M predicted 56 mL/min/1.73 m2 Normal 0 11-17-2018 [facility] among non-blacks [facility] (23790) (S/P/Bld) [Vol rate/Area] Comment: Order Comment: Order added b y Discern Expert. Performed By: #### [id number] # ### MARCUS [employer] [facility] [place] [address] GFR/1.73 sq M predicted 46 mL/min/1.73 m2 Normal 0 11-17-2018 [facility] among non-blacks [facility] (99082) (S/P/Bld) [Vol rate/Area] Comment: Order Comment: Order added b y Discern Expert. Performed By: #### [id number] # ### MARCUSShawn [address] [address] cbc w/ auto diff on 2018-11-17 Erythrocyte distribution 13.2 11.5-14.5 % Normal 11-17 [facility] width (RBC) [Ratio] Health System (51392) Comment: Performed By: #### [id number] # ### MARCUS [employer] [address] [place] [address] Hematocrit (Bld) [Volume 41.0 36.0-48.0 % Normal 11-17 [facility] Sys tem (25430) Comment: Performed By: #### [id number] # ### MARCUS [employer] [facility] [place] [address] Hemoglobin (Bld) 13.8 12.0-16.0 G/DL Normal 11-17-2018 [facility] [Mass/Vol] [facility] Sy stem (47586) Comment: Performed By: #### [id number] # ### MARCUS WilcoxPixc [facility] [place] [address] MCH (RBC) [Entitic mass] 30.9 27.0-31.0 pg Normal 11-17 [facility] (00 000) Comment: Performed By: #### [id number] # ### MARCUS RemPixc [facility] [place] [address] MCHC (RBC) [Mass/Vol] 33.6 33.0-37.0 G/DL Normal 11-17-[address] [facility] (00 000) Comment: Performed By: #### [id number] # ### [facility] [address] [place] [address] MCV (RBC) [Entitic vol] 91.9 78.0-100.0 fL Normal 11-17 [facility] (76671) Comment: Performed By: #### [id number] # ### MARCUS RemPixc [address] [place] [address] Platelet mean volume 7.6 7.4-11.[address] [facility] (Bld) [Entitic vol] System (69933) Comment: Performed By: #### [id number] # ### [facility] [employer] [facility] [place] [address] Platelets (Bld) [#/Vol] 82 130-400 E3/mcL Low 2018 [facility] () Comment: Performed By: #### [id number] # ### MARCUSShawn WilcoxChem [address] [place] [address] RBC (Bld) [#/Vol] 4.46 3.90-5.40 E6/mcL Normal 11-17-2018 [facility] () Comment: Performed By: #### [id number] # ### MARCUSShawn WilcoxChem [facility] [place] [address] WBC (Bld) [#/Vol] 4.2 3.6-11.0 E3/mcL Normal 11-17-2018 [facility] () Comment: Performed By: #### [id number] # ### MARCUSShawn WilcoxChem [address] [place] [address] bmp on 2018-11-17 Anion gap [Moles/Vol] 11 10-20 mEq/L Normal 11-17-19 [facility] () Comment: Performed By: #### [id number] # ### MARCUS JeriChem [facility] [place] [address] Calcium [Mass/Vol] 8.7 8.6-10.3 mg/dL Normal 11-17-2018 [facility] () Comment: Performed By: #### [id number] # ### MARCUS JeriChem [address] [place] [address] Chloride [Moles/Vol] 108 98-107 mEq/L High 9 [facility] () Comment: Performed By: #### [id number] # ### MARCUS RemChem [address] [place] [address] CO2 [Moles/Vol] 21.0 21.0-32.0 mEq/L Normal 11-17-2018 [facility] () Comment: Performed By: #### [id number] # ### MACRUS RemChem [address] [place] [address] Creatinine [Mass/Vol] 1.2 0.5-1.1 mg/dL High 11-17-19 [facility] ( 000) Comment: Performed By: #### [id number] # ### MARCUS Zelaya [address] [place] [address] Glucose [Mass/Vol] 103 70-99 mg/dL High 11-17-2018 [facility] (79011) Comment: Performed By: #### [id number] # ### MARCUS Zelaya [facility] [place] [address] Potassium [Moles/Vol] 3.7 3.5-5.3 mEq/L Normal 11-17-[address] [facility] (00 000) Comment: Performed By: #### [id number] # ### MARCUS Zelaya [facility] [place] [address] Sodium [Moles/Vol] 136 136-145 mEq/L Normal 11-17-2018 [facility] (00 000) Comment: Performed By: #### [id number] # ### MARCUS WilcoxPixc [address] [place] [address] Urea nitrogen [Mass/Vol] 15 6-23 mg/dL Normal 11-17 [facility] (00 000) Comment: Performed By: #### [id number] # ### MARCUS Zelaya [address] [place] [address] Urea nitrogen/Creatinine 12.5 5.4-30.0 ratio Normal 11-17 [facility] [Mass ratio] [facility] (74275) Comment: Performed By: #### [id number] # ### MARCUS Zelaya [address] [place] [address] auto diff on 11-17 Basophils (Bld) [#/Vol] 0.0 0.0-0.2 E3/mcL Normal 2018 [facility] (88867) Comment: Order Comment: Order Added b y Discern Expert. Performed By: #### [id number] # ### MARCUSShawn WilcoxPixc [facility] [place] [address] Basophils/100 WBC (Bld) 0.3 0.0-2.0 % Normal 2018 [facility] (00 000) Comment: Order Comment: Order Added b y Discern Expert. Performed By: #### [id number] # ### MARCUS WilcoxPixc [facility] [place] [address] Eos Absolute 0.1 0.0-0.7 E3/mcL Normal 11-17-2018 [facility] (74172) Comment: Order Comment: Order Added b y Discern Expert. Performed By: #### [id number] # ### MARCUSShawn Zelaya [address] [place] [address] Eosinophils/100 WBC (Bld) 2.4 0.0-11.0 % Normal 10-20 [facility] (00 000) Comment: Order Comment: Order Added b y Discern Expert. Performed By: #### [id number] # ### MARCUSShawn Zelaya [address] [place] [address] Lymphocytes (Bld) [#/Vol] 1.2 1.2-3.4 E3/mcL Normal 10-20 [facility] (45156) Comment: Order Comment: Order Added b y Discern Expert. Performed By: #### [id number] # ### MARCUS JeriFabian [address] [place] [address] Lymphocytes/100 WBC (Bld) 27.6 20.0-55.0 % Normal 10-20 [facility] (81211) Comment: Order Comment: Order Added b y Discern Expert. Performed By: #### [id number] # ### MARCUSShawn Zelaya [address] [place] [address] Cooper Absolute 0.4 0.0-0.7 E3/mcL Normal 11-17-2018 [facility] (74803) Comment: Order Comment: Order Added b y Discern Expert. Performed By: #### [id number] # ### MARCUSShawn Zelaya [address] [place] [address] Monocytes/100 WBC (Bld) 8.8 0.0-10.0 % Normal 2018 [facility] (00 000) Comment: Order Comment: Order Added b y Discern Expert. Performed By: #### [id number] # ### MARCUSShawn WilcoxChem [address] [place] [address] Neutro Absolute 2.5 1.4-6.5 E3/mcL Normal 11-17-2018 [facility] (55998) Comment: Order Comment: Order Added b y Discern Expert. Performed By: #### [id number] # ### MARCUS RemChem [address] [place] [address] Neutro Auto 60.4 37.0-75.0 % Normal 11-17-2018 [facility] (69796) Comment: Order Comment: Order Added erma Aldana Expert. Performed By: #### [id number] # ### MARCUS JeriChem [address] [place] [address] lab miscellaneous o n 2018-10-28 Status See Ref Lab Report Normal 10-28-2018 [facility] (35656) Comment: Performed By: #### [id number] # ### MARCUS RemHemo [address] [place] [address] zzplt morph on 2018 Platelet morphology finding NORMAL Normal [facility] (00 000) Comment: Performed By: #### [id number] # ### MARCUS JeriHemo [facility] [place] [address] Platelets (d) [#/Vol] DECREASED Normal 2018 [facility] (00 000) Comment: Performed By: #### [id number] # ### MARCUS RemHemo [address] [place] [address] valproic acid on 05-11-08 Valpro Acid Lvl 91 50-100 microgram/mL Normal 10-26-2018 [facility] (00 000) Comment: Performed By: #### [id number] # ### MARCUS JeriHemo [address] [place] [address] manual diff on 2018 Band form neutrophils/100 WBC 1 0-1 Normal 10-26-2018 [facility] (00 000) Comment: Order Comment: Order Added erma Aldana Expert. Performed By: #### [id number] # ### MARCUS RemHemo [address] [place] [address] Basophil Man 0 0-1 % Normal 10-26-2018 [facility] (77632) Comment: Order Comment: Order Added erma Aldana Expert. Performed By: #### [id number] # ### MARCUS RemHemo [address] [place] [address] Eosinophils/100 WBC (Bld) 3 0-5 % Normal 01-0 9-2019 [facility] (35347) Comment: Order Comment: Order Added erma y Discern Expert. Performed By: #### [id number] # ### MARCUS Kenyon[address] [address] Lymphocytes/100 WBC (Bld) 37 14-48 % Normal [facility] (00 000) Comment: Order Comment: Order Added b y Discern Expert. Performed By: #### [id number] # ### MARCUS Kostascorky [address] [place] [address] Monocyte Man 8 1-11 % Normal 10-26-2018 [facility] (84217) Comment: Order Comment: Order Added b y Discern Expert. Performed By: #### [id number] # ### MARCUS Kostascorky [address] [place] [address] RBC morphology finding Nom NORMAL Normal [facility] (00 000) Comment: Order Comment: Order Added b y Discern Expert. Performed By: #### [id number] # ### MARCUS Kostaso [address] [place] [address] Segs Man 51 37-75 % Normal 10-26-2018 [facility] (59082) Comment: Order Comment: Order Added erma y Discern Expert. Performed By: #### [id number] # ### MARCUS [address] [address] lab miscellaneous o n 2018-10-26 Test Name topamax Normal 10-26-2018 [facility] (80998) Comment: Performed By: #### [id number] # ### MARCUS Kostaso [address] [place] [address] egfr on 2018-10-26 GFR/1.73 sq M predicted 45 mL/min/1.73 m2 Normal 0 10-26-2018 [facility] among non-blacks [facility] (40207) (S/P/Bld) [Vol rate/Area] Comment: Order Comment: Order Added b y Discern Expert. Performed By: #### [id number] # ### MARCUS JeriBillingstreeto [address] [place] [address] GFR/1.73 sq M predicted 37 mL/min/1.73 m2 Normal 0 10-26-2018 [facility] among non-blacks [facility] (89897) (S/P/Bld) [Vol rate/Area] Comment: Order Comment: Order Added erma Aldana Expert. Performed By: #### [id number] # ### MARCUS WilcoxHemo [address] [place] [address] cmp on 2018-10-26 Albumin [Mass/Vol] 4.2 3.4-5.0 gm/dL Normal 10-26-2018 [facility] (00 000) Comment: Performed By: #### [id number] # ### MARCUS WilcoxHemo [address] [place] [address] Albumin/Globulin [Mass 1.6 1.1-1.9 ratio Normal [address] [place] [address] Health Sys tem (55503) Comment: Performed By: #### [id number] # ### MARCUS WilcoxHemo [address] [place] [address] Alk Phos 66 33-110 Int._Unit/L Normal 10-26-2018 [facility] (19979) Comment: Performed By: #### [id number] # ### MARCUS RemHemo [address] [place] [address] ALT [Catalytic 22 7-45 Int._Unit/L Normal 10-26-2018 [facility] (13328) Comment: Performed By: #### [id number] # ### MARCUS WilcoxHemo [address] [place] [address] Anion gap [Moles/Vol] 12 10-20 mEq/L Normal 10-26-[address] [facility] (00 000) Comment: Performed By: #### [id number] # ### MARCUS RemHemo [address] [place] [address] AST [Catalytic 33 9-39 Int._Unit/L Normal 10-26-2018 [facility] (31612) Comment: Performed By: #### [id number] # ### MARCUS RemHemo [address] [place] [address] Bili Total 0.38 0.00-1.20 mg/dL Normal 10-26-2018 [facility] (55931) Comment: Performed By: #### [id number] # ### MARCUS JeriHemo [address] [place] [address] Calcium [Mass/Vol] 9.2 8.6-10.3 mg/dL Normal 10-26-2018 [facility] (00 000) Comment: Performed By: #### [id number] # ### MARCUS JeriHemo [address] [place] [address] Chloride [Moles/Vol] 110 98-107 mEq/L High [facility] (00 000) Comment: Performed By: #### [id number] # ### MARCUS RemHemo [facility] [place] [address] CO2 [Moles/Vol] 24.0 21.0-32.0 mEq/L Normal 10-26-2018 [facility] (00 000) Comment: Performed By: #### [id number] # ### MARCUS JeriHemo [address] [place] [address] Creatinine [Mass/Vol] 1.5 0.5-1.1 mg/dL High 10-26-19 [facility] (00 000) Comment: Performed By: #### [id number] # ### MARCUS JeriHemo [facility] [place] [address] Globulin (S) [Mass/Vol] 3.0 2.0-4.0 G/DL Normal 2018 [facility] (00 000) Comment: Performed By: #### [id number] # ### MARCUS RemHemo [address] [place] [address] Glucose [Mass/Vol] 97 70-99 mg/dL Normal 10-26-2018 [facility] (90072) Comment: Performed By: #### [id number] # ### MARCUS RemHemo [facility] [place] [address] Potassium [Moles/Vol] 4.9 3.5-5.3 mEq/L Normal 10-26-19 [facility] (00 000) Comment: Performed By: #### [id number] # ### MARCUS RemHemo [facility] [place] [address] Protein [Mass/Vol] 6.9 6.4-8.2 gm/dL Normal 10-26-2018 [facility] (00 000) Comment: Performed By: #### [id number] # ### MARCUS Kenyono [facility] [place] [address] Sodium [Moles/Vol] 141 136-145 mEq/L Normal 10-26-2018 [facility] (00 000) Comment: Performed By: #### [id number] # ### MARCUS JeriHemo [facility] [place] [address] Urea nitrogen [Mass/Vol] 17 6-23 mg/dL Normal 10-26 [facility] (00 000) Comment: Performed By: #### [id number] # ### MARCUS WilcoxHemo [facility] [place] [address] Urea nitrogen/Creatinine 11.3 5.4-30.0 ratio Normal 10-26 [facility] [Mass ratio] [facility] (76827) Comment: Performed By: #### [id number] # ### MARCUS JeriHemo [address] [place] [address] cbc w/ auto diff on 2018-10-26 Erythrocyte distribution 13.2 11.5-14.5 % Normal 10-26 [facility] width (RBC) [Ratio] Health System (83021) Comment: Performed By: #### [id number] # ### MARCUS Kostaso [facility] [place] [address] Hematocrit (Bld) [Volume 44.4 36.0-48.0 % Normal 10-26 [facility] fraction] Health Sys tem (20094) Comment: Performed By: #### [id number] # ### MARCUS JeriHemo [facility] [place] [address] Hemoglobin (Bld) 14.8 12.0-16.0 G/DL Normal 10-26-2018 [facility] [Mass/Vol] Health [facility] (85931) Comment: Performed By: #### [id number] # ### MARCUS JeriHemo [facility] [place] [address] MCH (RBC) [Entitic mass] 30.7 27.0-31.0 pg Normal 10-26 [facility] (00 000) Comment: Performed By: #### [id number] # ### MARCUS WilcoxHemo [facility] [place] [address] MCHC (RBC) [Mass/Vol] 33.3 33.0-37.0 G/DL Normal 10-26-[address] [facility] (00 000) Comment: Performed By: #### [id number] # ### MARCUSShawn Kenyoncox [address] [place] [address] MCV (RBC) [Entitic vol] 92.1 78.0-100.0 fL Normal 10-26 [facility] (07098) Comment: Performed By: #### [id number] # ### MARCUSShawn [address] [address] Platelet mean volume 7.8 7.4-11.[address] [facility] (Bld) [Entitic vol] System (99063) Comment: Performed By: #### [id number] # ### MARCUSShawn WilcoxHemo [address] [place] [address] Platelets (Bld) [#/Vol] 93 130-400 E3/mcL Low 2018 [facility] (00 000) Comment: Performed By: #### [id number] # ### MARCUSShawn Kenyono [address] [place] [address] RBC (Bld) [#/Vol] 4.82 3.90-5.40 E6/mcL Normal 10-26-2018 [facility] (00 000) Comment: Performed By: #### [id number] # ### MARCUSShawn WilcoxHemo [address] [place] [address] WBC (Bld) [#/Vol] 4.7 3.6-11.0 E3/mcL Normal 10-26-2018 [facility] (00 000) Comment: Performed By: #### [id number] # ### MARCUSShawn WilcoxHemo [facility] [place] [address] xr spine lumbosacral 2 or 3 views on 2018-10-14 XR Spine Lumbosacral Exam Date/Time: Normal [facility] 2 or 3 Views 10/14/2018 15:28 [facility] Reason for Exam: (00 000) Back pain Report STUDY: XR Spine Lumbosacral 2 or 3 Views; 10/14/2018 3:28 pm INDICATION: Back pain. COMPARISON: 01/21/2017 ACCESSION NUMBER(S): [id number] ORDERING CLINICIAN: Moi De La Cruz FINDINGS: [...] pm Signed by: Bhupinder Berger MD Technologist: [facility] ua complete on 2017 Color (U) Yellow Yellow Normal 10-14-2018 [facility] (43071) Comment: Performed By: #### [id number] # ### MARCUS RemHemo [address] [place] [address] Glucose (U) [Mass/Vol] Negative Negative mg/dL Normal 018 [facility] tem (89428) Comment: Performed By: #### [id number] # ### MARCUS RemHemo [address] [place] [address] Ketones Ql (U) Negative Negative Normal 10-14-2018 [facility] (39327) Comment: Performed By: #### [id number] # ### MARCUS RemHemo [address] [place] [address] RBC (U) [#/Vol] 10-20 0-3 Abnormal 10-14-2018 [facility] (12496) Comment: Performed By: #### [id number] # ### MARCUS RemHemo [address] [place] [address] UA Blood Negative Negative Normal 10-14-2018 [facility] (87284) Comment: Performed By: #### [id number] # ### MARCUS RemHemo [address] [place] [address] UA Clarity Cloudy Clear Abnormal 10-14-2018 [facility] (91480) Comment: Performed By: #### [id number] # ### MARCUS RemHemo [address] [place] [address] UA Hyal Cast 5-10 0-2 Abnormal 10-14-2018 [facility] (93095) Comment: Performed By: #### [id number] # ### MARCUS RemHemo [address] [place] [address] UA Leuk Est 3+ Negative Abnormal 10-14-2018 [facility] (71400) Comment: Performed By: #### [id number] # ### MARCUS RemHemo [address] [place] [address] UA Mucous Trace Trace Abnormal 10-14-2018 [facility] (15436) Comment: Performed By: #### [id number] # ### MARCUS RemHemo [address] [place] 7647305 UA Nitrite Negative Negative Normal 10-14-2018 [facility] (14889) Comment: Performed By: #### [id number] # ### MARCUS RemHemo [address] [place] [address] UA pH 7.0 4.6-8.0 Normal 10-14-2018 [facility] (71042) Comment: Performed By: #### [id number] # ### MARCUS RemHemo [address] [place] [address] UA Protein Negative Negative Normal 10-14-2018 [facility] (48294) Comment: Performed By: #### [id number] # ### MARCUS RemHemo [address] [place] [address] UA Spec Grav 1.016 1.003-1.030 Normal 10-14-2018 [facility] (98699) Comment: Performed By: #### [id number] # ### MARCUS RemHemo [address] [place] [address] UA Squam Epithelial >30 0-5 Abnormal 10-14-2018 [facility] (67499) Comment: Performed By: #### [id number] # ### MARCUS RemHemo [address] [place] [address] UA Urobilinogen Negative Normal 10-14-2018 [facility] (42697) Comment: Result Comment: Due to a man ufacturing issue, low positive urobilinogen results may be fasely positi ve. Correlate with urine bilirubin and additional clinical/laborato ry findings to assess the risk of hemolytic anemia or liver disease. If clinically indicated, repeat testing with an alternate method is availabl e by contacting the laboratory within 24 hours. Performed By: #### [id number] # ### MARCUS RemHemo [address] [place] [address] UA WBC 10-20 0-5 Abnormal 10-14-2018 [facility] (79792) Comment: Performed By: #### [id number] # ### MARCUS WilcoxHemo [address] [place] [address] Urobilinogen Qn (U) Negative Negative Normal 10-14-2018 [facility] (00 000) Comment: Performed By: #### [id number] # ### MARCUS WilcoxHemo [address] [place] [address] xr chest ap portable on 2018-10-02 XR Chest AP Exam Date/Time: Normal 10-02-2018 [facility] Portable 10/02/2018 11:20 [facility] Reason for Exam: (00 000) Chest pain Report STUDY: XR Chest AP Portable; 10/02/2018 11:20 am INDICATION: Chest pain. COMPARISON: 12/15/2017 ACCESSION NUMBER(S): [id number] ORDERING CLINICIAN: Moi De La Cruz FINDINGS: [...] Troponin I.cardiac <.01 .00-.03 ng/mL Normal 10-02-2018 [facility] [Mass/Vol] Health [facility] (12395) Comment: Performed By: #### [id number] # ### MARCUS Kenyoncox [address] [place] [address] Troponin I.cardiac .01 .00-.03 ng/mL Normal 10-02-2018 [facility] [Mass/Vol] [facility] stem (69404) Comment: Performed By: #### [id number] #### MARCUS Kenyono [facility] [place] [address] ptt on 2018-10-02 aPTT Coag (Bld) 28.3 23.2-36.4 second(s) Normal 10-02-2018 [facility] [Time] [facility] tem (91243) Comment: Performed By: #### [id number] #### MARCUS [address] [address] ptt control ratio o n 2018-10-02 PTT Ratio 0.9 0.8-1.2 ratio Normal 10-02-2018 [facility] (96152) Comment: Order Comment: Order added erma Aldana Expert. Performed By: #### [id number] #### MARCUS Kenyon[address] [address] pt on 2018-10-02 INR Coag (PPP) [Relative 1.1 1.0-1.2 {INR} Normal 10-02 [facility] tem (31318) Comment: Result Comment: INR Recommen ded Therapeuptic Ranges: Prophylaxis/treatment of DVT and PE?2.0-3.0 Prevention of systemic embol ism?.2.0-3.0 Mechanical prosthetic values ?2.5-3.5 CRITICAL VALUES?.>4.0 Performed By: #### [id number] #### MARCUS WilcoxBillingstreeto [facility] [place] [address] PT Coag (PPP) [Time] 13.2 11.6-14.6 second(s) Normal 8 [facility] (60452) Comment: Performed By: #### [id number] #### MARCUS Kenyoncorky [address] [place] [address] manual diff on 2017 Anisocytosis Ql (Bld) 2+ Normal 10-02-[address] [facility] (47613) Comment: Order Comment: Order Added b y Discern Expert. Performed By: #### [id number] #### MARCUS JeriKarlo [facility] [place] [address] Band form neutrophils/100 WBC 6 0-1 High 10-02-2018 [facility] (00 000) Comment: Order Comment: Order Added b y Discern Expert. Performed By: #### [id number] #### MARCUS JeriHemo [address] [place] [address] Basophil Man 0 0-1 % Normal 10-02-2018 [facility] (28035) Comment: Order Comment: Order Added b y Discern Expert. Performed By: #### [id number] #### MARCUS WilcoxHemo [address] [place] [address] Eosinophils/100 WBC (Bld) 1 0-5 % Normal 09-17 [facility] (68648) Comment: Order Comment: Order Added b y Discern Expert. Performed By: #### [id number] #### MARCUS WilcoxHemo [address] [place] [address] Lymphocytes/100 WBC (Bld) 37 14-48 % Normal 09-17 [facility] (00 000) Comment: Order Comment: Order Added b y Discern Expert. Performed By: #### [id number] #### MARCUS JeriHemo [facility] [place] [address] [place] Man 3 0-0 % High 10-02-2018 [facility] (82029) Comment: Order Comment: Order Added b y Discern Expert. Performed By: #### [id number] #### MARCUS JreiHemo [facility] [place] [address] Monocyte Man 10 1-11 % Normal 10-02-2018 [facility] (24698) Comment: Order Comment: Order Added b y Discern Expert. Performed By: #### [id number] #### MARCUS Kenyono [facility] [place] [id number] Poikilocytosis 1+ Normal 10-02-2018 [facility] (50547) Comment: Order Comment: Order Added b y Discern Expert. Performed By: #### [id number] #### MARCUS JeriHemo [address] [place], [place] [address] Polychromasia 1+ Normal 10-02-2018 [facility] (11176) Comment: Order Comment: Order Added b y Discern Expert. Performed By: #### [id number] #### MARCUS Kostaso [address] [place], [place] [address] RBC morphology finding SEE MORPHOLOGY Normal [facility] (88971) Comment: Order Comment: Order Added b y Discern Expert. Performed By: #### [id number] #### MARCUS JeriHemo [address] [place], [place] [address] Segs Man 43 37-75 % Normal 10-02-2018 [facility] (51712) Comment: Order Comment: Order Added b y Discern Expert. Performed By: #### [id number] #### MARCUS JeriBillingstreeto [address] [place], [place] [address] magnesium on 2017-10 Magnesium [Mass/Vol] 1.9 1.6-2.4 mg/dL Normal 10-02-[address] [facility] (00 000) Comment: Performed By: #### [id number] #### MARCUS JeriHemo [address] [place], [place] [address] egfr on 2018-10-02 GFR/1.73 sq M predicted 44 mL/min/1.73 m2 Normal 1 12-03-2017 [facility] among non-blacks [facility] (67844) (S/P/Bld) [Vol rate/Area] Comment: Order Comment: Order added b y Discern Expert. Performed By: #### [id number] #### MARCUS JeriBillingstreeto [address] [place], [place] [address] GFR/1.73 sq M predicted 53 mL/min/1.73 m2 Normal 1 12-03-2017 [facility] among non-blacks [facility] (34963) (S/P/Bld) [Vol rate/Area] Comment: Order Comment: Order added b y Discern Expert. Performed By: #### [id number] #### MARCUS WilcoxHemo [facility] [place] [address] cbc w/ auto diff on 2018-10-02 Erythrocyte distribution 13.1 11.5-14.5 % Normal 10-02 [facility] width (RBC) [Ratio] Health System (57921) Comment: Performed By: #### [id number] #### MARCUSShawn WilcoxHemo [facility] [place] [address] Hematocrit (Bld) [Volume 40.9 36.0-48.0 % Normal 10-02 [facility] fraction] Health Sys tem (59941) Comment: Performed By: #### [id number] #### MARCUS WilcoxHemo [facility] [place] [address] Hemoglobin (Bld) 13.7 12.0-16.0 G/DL Normal 10-02-2018 [facility] [Mass/Vol] Health Sy stem (72066) Comment: Performed By: #### [id number] #### MARCUS WilcoxHemo [facility] [place] [address] MCH (RBC) [Entitic mass] 31.0 27.0-31.0 pg Normal 10-02 [facility] (00 000) Comment: Performed By: #### [id number] #### MARCUS RemHemo [facility] [place] [address] MCHC (RBC) [Mass/Vol] 33.7 33.0-37.0 G/DL Normal 10-02-[address] [facility] (00 000) Comment: Performed By: #### [id number] #### MARCUS RemHemo [facility] [place] [address] MCV (RBC) [Entitic vol] 92.1 78.0-100.0 fL Normal 10-02 [facility] Sys tem (08280) Comment: Performed By: #### [id number] #### MARCUSShawn WilcoxHemo [address] [place] [address] Platelet mean volume 8.4 7.4-11.[address] [facility] (d) [Entitic vol] System (86933) Comment: Performed By: #### [id number] #### MARCUSShawn WilcoxHemo [address] [place] [address] Platelets (Bld) [#/Vol] 82 130-400 E3/mcL Low 2017 [facility] (00 000) Comment: Performed By: #### [id number] #### MARCUS JeriHemo [facility] [place] [address] RBC (Bld) [#/Vol] 4.44 3.90-5.40 E6/mcL Normal 10-02-2018 [facility] (00 000) Comment: Performed By: #### [id number] #### MARCUS JeriHemo [facility] [place] [address] WBC (Bld) [#/Vol] 5.3 3.6-11.0 E3/mcL Normal 10-02-2018 [facility] (00 000) Comment: Performed By: #### [id number] #### MARCUS JeriHemo [address] [place] [address] bmp on 2018-10-02 Anion gap [Moles/Vol] 9 10-20 mEq/L Low 10-02-[address] [facility] (80611) Comment: Performed By: #### [id number] #### MARCUS JeriHemo [address] [place] [address] Calcium [Mass/Vol] 8.4 8.6-10.3 mg/dL Low 10-02-2018 [facility] (09798) Comment: Performed By: #### [id number] #### MARCUS JeriHemo [address] [place] [address] Chloride [Moles/Vol] 111 98-107 mEq/L High 8 [facility] (00 000) Comment: Performed By: #### [id number] #### MARCUS RemHemo [address] [place] [address] CO2 [Moles/Vol] 22.0 21.0-32.0 mEq/L Normal 10-02-2018 [facility] (00 000) Comment: Performed By: #### [id number] #### MARCUS RemHemo [address] [place] [address] Creatinine [Mass/Vol] 1.3 0.5-1.1 mg/dL High 10-02-20 [facility] (00 000) Comment: Performed By: #### [id number] #### MARCUS RemHemo [address] [place] [address] Glucose [Mass/Vol] 88 70-99 mg/dL Normal 10-02-2018 [facility] (45379) Comment: Performed By: #### [id number] #### MARCUS RemHemo [address] [place] [address] Potassium [Moles/Vol] 4.2 3.5-5.3 mEq/L Normal 10-02-20 [facility] (00 000) Comment: Performed By: #### [id number] #### MARCUS RemHemo [facility] [place] [address] Sodium [Moles/Vol] 138 136-145 mEq/L Normal 10-02-2018 [facility] (00 000) Comment: Performed By: #### [id number] #### MARCUS RemHemo [address] [place] [address] Urea nitrogen [Mass/Vol] 16 6-23 mg/dL Normal 10-02 [facility] (00 000) Comment: Performed By: #### [id number] #### MARCUS RemHemo [address] [place] [address] Urea nitrogen/Creatinine 12.3 5.4-30.0 ratio Normal 10-02 [facility] (17183) Comment: Performed By: #### [id number] #### MARCUS RemHemo [address] [place] [address] .manual abs on 2017 Basophil Abs Man 0.0 0.0-0.2 10x3/ Normal 10-02-[address] [facility] (76044) Comment: Order Comment: Order Added erma lizama Discern Expert. Performed By: #### [id number] #### MARCUS Kenyono [address] [place] [address] Eos Abs Man 0.1 0.0-0.5 10x3/ Normal 10-02-2018 [facility] (07344) Comment: Order Comment: Order Added erma y Discern Expert. Performed By: #### [id number] #### MARCUS Kenyoncorky [facility] [place] [address] Lymph Abs Man 2.0 1.2-3.4 10x3/ Normal 10-02-2018 [facility] (15145) Comment: Order Comment: Order Added erma y Discern Expert. Performed By: #### [id number] #### MARCUS Kostascorky [address] [place] [address] Cooper Abs Man 0.5 0.0-0.7 10x3/ Normal 10-02-2018 [facility] (49506) Comment: Order Comment: Order Added erma y Discern Expert. Performed By: #### [id number] #### MARCUS Kenyono [facility] [place] [address] Segs Abs Man 2.3 1.4-6.5 10x3/ Normal 10-02-2018 [facility] (10657) Comment: Order Comment: Order Added erma lizama Discern Expert. Performed By: #### [id number] #### MARCUSShawn Kenyoncorky [address] [place] [address] c urine on C Urine Final Report: Moderate Normal [facility] Normal skin joe isolated System (82070) Comment: Performed By: #### [id number] #### MARCUSShawn Kenyono [facility] [place] [address] ua complete on 2017 Color (U) Yellow Yellow Normal 09-22-2018 [facility] (27616) Comment: Performed By: #### [id number] #### MARCUSShawn Kenyoncox [address] [place] [address] Glucose (U) [Mass/Vol] Negative Negative mg/dL Normal 018 [facility] Sys tem (46016) Comment: Performed By: #### [id number] #### MARCUS RemHemo [address] [place] [address] Ketones Ql (U) Negative Negative Normal 09-22-2018 [facility] (73035) Comment: Performed By: #### [id number] #### MARCUS RemHemo [address] [place] [address] RBC (U) [#/Vol] 20-50 0-3 Abnormal 09-22-2018 [facility] (05288) Comment: Performed By: #### [id number] #### MARCUS RemHemo [address] [place] [address] UA Blood Negative Negative Normal 09-22-2018 [facility] (46386) Comment: Performed By: #### [id number] #### MARCUS RemHemo [address] [place] [address] UA Bacteria 2+ None /HPF Abnormal 09-22-2018 [facility] (92074) Comment: Performed By: #### [id number] #### MARCUS RemHemo [address] [place] [address] UA Clarity Cloudy Clear Abnormal 09-22-2018 [facility] (73749) Comment: Performed By: #### [id number] #### MARCUS RemHemo [address] [place] [address] UA Leuk Est 3+ Negative Abnormal 09-22-2018 [facility] (91310) Comment: Performed By: #### [id number] #### MARCUS RemHemo [address] [place] [address] UA Mucous Trace Trace Abnormal 09-22-2018 [facility] (44978) Comment: Performed By: #### [id number] #### MARCUS RemHemo [address] [place] [address] UA Nitrite Negative Negative Normal 09-22-2018 [facility] (21041) Comment: Performed By: #### [id number] #### MARCUS RemHemo [address] [place] [address] UA pH 7.0 4.6-8.0 Normal 09-22-2018 [facility] (88652) Comment: Performed By: #### [id number] #### MARCUS WilcoxHemo [address] [place] [address] UA Protein Negative Negative Normal 09-22-2018 [facility] (11494) Comment: Performed By: #### [id number] #### MARCUS WilcoxHemo [address] [place] [address] UA Spec Grav 1.014 1.003-1.030 Normal 09-22-2018 [facility] (76904) Comment: Performed By: #### [id number] #### MARCUS WilcoxHemo [facility] [place] [address] UA Squam Epithelial >30 0-5 Abnormal 09-22-2018 [facility] (92891) Comment: Performed By: #### [id number] #### MARCUS WilcoxHemo [facility] [place] [address] UA Urobilinogen Negative Normal 09-22-2018 [facility] (77896) Comment: Result Comment: Due to a man ufacturing issue, low positive urobilinogen results may be fasely positi ve. Correlate with urine bilirubin and additional clinical/laborato ry findings to assess the risk of hemolytic anemia or liver disease. If clinically indicated, repeat testing with an alternate method is availabl e by contacting the laboratory within 24 hours. Performed By: #### [id number] #### MARCUS WilcoxHemo [address] [place] [address] UA WBC 20-50 0-5 Abnormal 09-22-2018 [facility] (31396) Comment: Performed By: #### [id number] #### MARCUS WilcoxHemo [facility] [place] [address] Urobilinogen Qn (U) Negative Negative Normal 09-22-2018 [facility] (00 000) Comment: Performed By: #### [id number] #### MARCUS WilcoxHemo [facility] [place] [address] u bhcg qlt on 09-22 HCG.beta subunit Qn Neg Neg m[IU]/mL Normal 09-22-2018 [facility] (00 000) Comment: Performed By: #### [id number] #### MARCUS Kenyono [address] [place] [address] lipase level on 201 05-29-06 Lipase Lvl 44 9-82 Int._Unit/L Normal 09-22-2018 [facility] (90451) Comment: Performed By: #### [id number] #### MARCUS Kenyono [address] [place] [address] hep func panel on 2 Albumin [Mass/Vol] 4.7 3.4-5.0 gm/dL Normal 09-22-2018 [facility] (00 000) Comment: Performed By: #### [id number] #### MARCUS Kenyono [facility] [place] [address] Albumin/Globulin [Mass 1.7 1.1-1.9 ratio Normal [address] [place] [address] Sys tem (46814) Comment: Performed By: #### [id number] #### MARCUS Kenyono [facility] [place] [address] Alk Phos 67 33-110 Int._Unit/L Normal 09-22-2018 [facility] (60746) Comment: Performed By: #### [id number] #### MARCUS Kenyono [facility] [place] [address] ALT [Catalytic 19 7-45 Int._Unit/L Normal 09-22-2018 [facility] (02706[facility] Comment: Performed By: #### [id number] #### MARCUS WilcoxHemo [facility] [place] [address] AST [Catalytic 31 9-39 Int._Unit/L Normal 09-22-2018 [facility] activity/Vol] [facility] (62945) Comment: Performed By: #### [id number] #### MARCUSShawn WilcoxHemo [address] [place] [address] Bili Direct 0.12 0.00-0.30 mg/dL Normal 09-22-2018 [facility] (84146) Comment: Performed By: #### [id number] #### MARCUSShawn WilcoxHemo [address] [place] [address] Bili Indirect 0.53 mg/dL Normal 09-22-2018 [facility] (43659) Comment: Result Comment: No establish ed ranges available for the indirect bilirubin Performed By: #### [id number] #### MARCUS [place] [id number] Bili Total 0.65 0.00-1.20 mg/dL Normal 09-22-2018 [facility] (91228) Comment: Performed By: #### [id number] #### MARCUS [place] [id number] Globulin (S) [Mass/Vol] 3.0 2.0-4.0 G/DL Normal 2017 [facility] (00 000) Comment: Performed By: #### [id number] #### MARCUS [place] [id number] Protein [Mass/Vol] 7.4 6.4-8.2 gm/dL Normal 09-22-2018 [facility] (00 000) Comment: Performed By: #### [id number] #### MARCUS [place] [id number] egfr on 2018-09-22 GFR/1.73 sq M predicted 51 mL/min/1.73 m2 Normal 1 11-23-2017 [facility] among non-blacks [facility] (42864) (S/P/Bld) [Vol rate/Area] Comment: Order Comment: Order Added erma Aldana Expert. Performed By: #### [id number] #### MARCUS [place] [id number] GFR/1.73 sq M predicted 42 mL/min/1.73 m2 Normal 1 11-23-2017 [facility] (87518) (S/P/Bld) [Vol rate/Area] Comment: Order Comment: Order Added erma Aldana Expert. Performed By: #### [id number] #### MARCUS [address] [address] [address] abdomen/pelvis w/o contrast on 2018-09-22 CT Abdomen/Pelvis w/o Exam Date/Time: Normal [employer] Contrast 09/22/2018 18:11 [facility] Reason for Exam: Sys tem (61379) Abdominal Pain;Other (please specify) Report STUDY: CT Abdomen/Pelvis w/o Contrast; 09/22/2018 6:11 pm INDICATION: Other (please specify). COMPARISON: CT dated 05/19/2018 ACCESSION NUMBER(S): [id number] ORDERING CLINICIAN: Shilpa Douglas TECHNIQUE: CT of [...] Erythrocyte distribution 13.6 11.5-14.5 % Normal 09-[address] [facility] (RBC) [Ratio] [facility] (07839) Comment: Performed By: #### [id number] # ### MARCUS WilcoxHemcorky [address] [place] [address] Hematocrit (Bld) [Volume 50.0 36.0-48.0 % High 09-22 [facility]] System ( 000) Comment: Performed By: #### [id number] # ### MARCUS WilcoxHemo [address] [place] [address] Hemoglobin (Bld) 16.9 12.0-16.0 G/DL High 09-22-2018 [facility] [Mass/Vol] Health Sy stem (83998) Comment: Performed By: #### [id number] # ### MARCUSShawn WilcoxHemo [facility] [place] [address] MCH (RBC) [Entitic mass] 31.0 27.0-31.0 pg Normal 09-22 [facility] ( 000) Comment: Performed By: #### [id number] # ### MARCUSShawn WilcoxHemo [facility] [place] [address] MCHC (RBC) [Mass/Vol] 33.8 33.0-37.0 G/DL Normal 09-22-[address] [facility] () Comment: Performed By: #### [id number] # ### MARCUSShawn WilcoxHemo [address] [place] [address] MCV (RBC) [Entitic vol] 91.7 78.0-100.0 fL Normal 09-22 [facility] Sys tem (38658) Comment: Performed By: #### [id number] # ### MARCUSShawn WilcoxHemo [facility] [place] [address] Platelet mean volume 8.1 7.4-11.[address] [facility] (Bld) [Entitic vol] System (77959) Comment: Performed By: #### [id number] # ### MARCUSShawn WilcoxHemo [facility] [place] [address] Platelets (Bld) [#/Vol] 123 130-400 E3/mcL Low 2017 [facility] () Comment: Performed By: #### [id number] # ### MARCUSShawn WilcoxHemo [facility] [place] [address] RBC (Bld) [#/Vol] 5.45 3.90-5.40 E6/mcL High 09-22-2018 [facility] () Comment: Performed By: #### [id number] # ### MARCUS WilcoxHemo [address] [place] [address] WBC (Bld) [#/Vol] 6.6 3.6-11.0 E3/mcL Normal 09-22-2018 [facility] (00 000) Comment: Performed By: #### [id number] # ### MARCUS RemHemo [address] [place] [address] bmp on 2018-09-22 Anion gap [Moles/Vol] 12 10-20 mEq/L Normal 09-22-20 [facility] (00 000) Comment: Performed By: #### [id number] #### MARCUS WilocxHemo [address] [place] [address] Calcium [Mass/Vol] 9.4 8.6-10.3 mg/dL Normal 09-22-2018 [facility] (00 000) Comment: Performed By: #### [id number] #### MARCUS WilcoxHemo [address] [place] [address] Chloride [Moles/Vol] 110 98-107 mEq/L High [facility] (00 000) Comment: Performed By: #### [id number] #### MARCUS RemHemo [address] [place] [address] CO2 [Moles/Vol] 22.0 21.0-32.0 mEq/L Normal 09-22-2018 [facility] (00 000) Comment: Performed By: #### [id number] #### MARCUS RemHemo [address] [place] [address] Creatinine [Mass/Vol] 1.4 0.5-1.1 mg/dL High 09-22-[address] [facility] (00 000) Comment: Performed By: #### [id number] #### MARCUS RemHemo [address] [place] [address] Glucose [Mass/Vol] 93 70-99 mg/dL Normal 09-22-2018 [facility] (67279) Comment: Performed By: #### [id number] #### MARCUS RemHemo [address] [place] [address] Potassium [Moles/Vol] 4.7 3.5-5.3 mEq/L Normal 09-22-[address] [facility] (00 000) Comment: Performed By: #### [id number] #### MARCUS Kenyono [address] [place] [address] Sodium [Moles/Vol] 139 136-145 mEq/L Normal 09-22-2018 [facility] (00 000) Comment: Performed By: #### [id number] #### MARCUS Kenyono [address] [place] [address] Urea nitrogen [Mass/Vol] 15 6-23 mg/dL Normal 09-22 [facility] (00 000) Comment: Performed By: #### [id number] #### MARCUSShawn Wilcox[address] [address] Urea nitrogen/Creatinine 10.7 5.4-30.0 ratio Normal 09-22 [facility] [Mass ratio] [facility] (94455) Comment: Performed By: #### [id number] #### MARCUSShawn Wilcox[address] [address] auto diff on 2017-10 2-06 Basophils (Bld) [#/Vol] 0.0 0.0-0.2 E3/mcL Normal 2017 [facility] Sys tem (67012) Comment: Order Comment: Order Added b y Discern Expert. Performed By: #### [id number] #### MARCUS Kenyono [address] [place] [address] Basophils/100 WBC (Bld) 0.4 0.0-2.0 % Normal 2017 [facility] (00 000) Comment: Order Comment: Order Added b y Discern Expert. Performed By: #### [id number] #### MARCUSShawn Kenyono [address] [place] [address] Eos Absolute 0.1 0.0-0.7 E3/mcL Normal 09-22-2018 [facility] (40250) Comment: Order Comment: Order Added b y Discern Expert. Performed By: #### [id number] #### MARCUS [address] [address] Eosinophils/100 WBC (Bld) 1.6 0.0-11.0 % Normal [facility] (00 000) Comment: Order Comment: Order Added b y Discern Expert. Performed By: #### [id number] #### MARCUS WilcoxHemo [address] [place] [address] Lymphocytes (Bld) [#/Vol] 2.0 1.2-3.4 E3/mcL Normal [facility] (36133) Comment: Order Comment: Order Added b y Discern Expert. Performed By: #### [id number] #### MARCUS JeriHemo [address] [place] [address] Lymphocytes/100 WBC (Bld) 30.2 20.0-55.0 % Normal [facility] (39522) Comment: Order Comment: Order Added b y Discern Expert. Performed By: #### [id number] #### MARCUS JeriHemo [address] [place] [address] Cooper Absolute 0.6 0.0-0.7 E3/mcL Normal 09-22-2018 [facility] (02321) Comment: Order Comment: Order Added b y Discern Expert. Performed By: #### [id number] #### MARCUS WilcoxHemo [address] [place] [address] Monocytes/100 WBC (Bld) 9.0 0.0-10.0 % Normal 2017 [facility] (00 000) Comment: Order Comment: Order Added b y Discern Expert. Performed By: #### [id number] #### MARCUS JeriHemo [address] [place] [address] Neutro Absolute 3.9 1.4-6.5 E3/mcL Normal 09-22-2018 [facility] (67881) Comment: Order Comment: Order Added b y Discern Expert. Performed By: #### [id number] #### MARCUS JeriHemo [facility] [place] [address] Neutro Auto 58.8 37.0-75.0 % Normal 09-22-2018 [facility] (33310) Comment: Order Comment: Order Added b y Discern Expert. Performed By: #### [id number] #### MARCUS RemHemo [address] [place] [address] c urine on C Urine Final Report: Few Mixed skin Normal 1 [facility] (35706) Comment: Performed By: #### [id number] # ### MARCUS Microbiology Subsection [address] [place] [address] ua complete on 2017 Color (U) Yellow Yellow Normal 08-15-2018 [facility] (26714) Comment: Order Comment: Straight Cath as needed Performed By: #### [id number] #### MARCUS Urinalysis Automated Suggs bsection [address] [place] [address] Glucose (U) [Mass/Vol] 1+ Negative Abnormal 018 [facility] (00 000) Comment: Order Comment: Straight Cath as needed Performed By: #### [id number] #### MARCUS Urinalysis Automated Suggs bsection [address] [place] [address] Ketones Ql (U) Negative Negative Normal 08-15-2018 [facility] (35751) Comment: Order Comment: Straight Cath as needed Performed By: #### [id number] #### MARCUS Urinalysis Automated Suggs bsection [address] [place] [address] RBC (U) [#/Vol] 0-3 0-3 Normal 08-15-2018 [facility] (68950) Comment: Order Comment: Straight Cath as needed Performed By: #### [id number] #### MARCUS Urinalysis Automated Suggs bsection [address] [place] [address] UA Blood Negative Negative Normal 08-15-2018 [facility] (98233) Comment: Order Comment: Straight Cath as needed Performed By: #### [id number] #### MARCUS Urinalysis Automated [employer]gs bsection [address] [place] [address] UA Bacteria Trace None Abnormal 08-15-2018 [facility] (19146) Comment: Order Comment: Straight Cath as needed Performed By: #### [id number] #### MARCUS Urinalysis Automated Suggs bsection [address] [place] [address] UA Clarity SltCloudy Clear Abnormal 08-15-2018 [facility] (52981) Comment: Order Comment: Straight Cath as needed Performed By: #### [id number] #### MARCUS Urinalysis Automated Suggs bsection [address] [place] [address] UA Hyal Cast 0-2 0-2 Normal 08-15-2018 [facility] (69467) Comment: Order Comment: Straight Cath as needed Performed By: #### [id number] #### MARCUS Urinalysis Automated [employer]gs bsection [address] [place] [address] UA Leuk Est 1+ Negative Abnormal 08-15-2018 [facility] (24336) Comment: Order Comment: Straight Cath as needed Performed By: #### [id number] #### MARCUS Urinalysis Automated [employer]gs bsection [address] [place] [address] UA Mucous Trace Trace Abnormal 08-15-2018 [facility] (29246) Comment: Order Comment: Straight Cath as needed Performed By: #### [id number] #### MARCUS Urinalysis Automated Suggs bsection [address] [place] [address] UA Nitrite Negative Negative Normal 08-15-2018 [facility] (69497) Comment: Order Comment: Straight Cath as needed Performed By: #### [id number] #### MARCUS Urinalysis Automated Suggs bsection [address] [place] [address] UA pH 7.0 4.6-8.0 Normal 08-15-2018 [facility] (87012) Comment: Order Comment: Straight Cath as needed Performed By: #### [id number] #### MARCUS Urinalysis Automated [employer]gs bsection [address] [place] [address] UA Protein Negative Negative Normal 08-15-2018 [facility] (25503) Comment: Order Comment: Straight Cath as needed Performed By: #### [id number] #### MARCUS Urinalysis Automated [employer]gs bsection [address] [place] [address] UA Spec Grav 1.012 1.003-1.030 Normal 08-15-2018 [facility] (43427) Comment: Order Comment: Straight Cath as needed Performed By: #### [id number] #### MARCUS Urinalysis Automated Suggs bsection [address] [place] [address] UA Squam Epithelial 5-10 0-5 Abnormal 08-15-2018 [facility] (42080) Comment: Order Comment: Straight Cath as needed Performed By: #### [id number] #### MARCUS Urinalysis Automated [employer]gs bsection [address] [place] [address] UA Urobilinogen Negative Normal 08-15-2018 [facility] (88412) Comment: Order Comment: Straight Cath as needed Performed By: #### [id number] #### MARCUS Urinalysis Automated Suggs bsection [address] [place] [address] UA WBC 10-20 0-5 Abnormal 08-15-2018 [facility] (22403) Comment: Order Comment: Straight Cath as needed Performed By: #### [id number] #### MARCUS Urinalysis Automated Suggs bsection [address] [place] [address] Urobilinogen Qn (U) Negative Negative Normal 08-15-2018 [facility] (00 000) Comment: Order Comment: Straight Cath as needed Performed By: #### [id number] #### MARCUS Urinalysis Automated Suggs bsection [address] [place] [address] zzplt morph on 2017 Platelet morphology finding NORMAL Normal [facility] (d) System (00 000) Comment: Performed By: #### [id number] #### MARCUS RemHemo [address] [place] [address] Platelets (Bld) [#/Vol] DECREASED Normal 2017 [facility] (00 000) Comment: Performed By: #### [id number] #### MARCUS RemHemo [address] [place] [id number] tsh on 2018-08-14 TSH Qn 2.16 0.30-5.60 mcIU/mL Normal 08-14-2018 [facility] (32050) Comment: Order Comment: With T4fr Ref kurt Performed By: #### [id number] # ### MARCUS RemChem [address] [place] [id number] morph on 2018-08-14 Anisocytosis Ql (Bld) 1+ Normal 08-14-[address] [facility] System (58795) Comment: Order Comment: Order Added erma Aldana Expert. Performed By: #### [id number] #### MARCUSShawn WilcoxHemo [address] [place] [address] RBC morphology finding SEE MORPHOLOGY Normal [facility] Nom (Bld) Health Sys tem (84445) Comment: Order Comment: Order Added erma Aldana Expert. Performed By: #### [id number] #### MARCUSShawn WilcoxHemo [address] [place] [id number] egfr on 2018-08-14 GFR/1.73 sq M predicted 53 mL/min/1.73 m2 Normal 1 [facility] among non-blacks [facility] System (63118) (S/P/Bld) [Vol rate/Area] Comment: Order Comment: Order added erma Aldana Expert. Performed By: #### [id number] #### MARCUSShawn WilcoxChem [address] [place], [place] [id number] GFR/1.73 sq M predicted 44 mL/min/1.73 m2 Normal 1 [facility] among non-blacks [facility] System (67273) (S/P/Bld) [Vol rate/Area] Comment: Order Comment: Order added erma Aldana Expert. Performed By: #### [id number] #### MARCUSShawn WilcoxChem [address] [place], [place] [id number] cbc w/ auto diff on 2018-08-14 Erythrocyte distribution 13.2 11.5-14.5 % Normal 08-14 [facility] width (RBC) [Ratio] Health System (92808) Comment: Performed By: #### [id number] # ### MARCUS RemHemo [address] [place] [address] Hematocrit (Bld) [Volume 42.1 36.0-48.0 % Normal 08-14 [facility] fraction] Health Sys tem (25155) Comment: Performed By: #### [id number] # ### MARCUS RemHemo [address] [place] [id number] Hemoglobin (Bld) 14.1 12.0-16.0 G/DL Normal 08-14-2018 [facility] [Mass/Vol] Health Sy stem (32153) Comment: Performed By: #### [id number] # ### MARCUS WilcoxHemo [address] [place] [address] MCH (RBC) [Entitic mass] 30.8 27.0-31.0 pg Normal 08-14 [facility] () Comment: Performed By: #### [id number] # ### MARCSU WilcoxHemo [facility] [place] [address] MCHC (RBC) [Mass/Vol] 33.5 33.0-37.0 G/DL Normal 08-14-20 [facility] () Comment: Performed By: #### [id number] # ### MARCUS WilcoxHemo [facility] [place] [address] MCV (RBC) [Entitic vol] 91.7 78.0-100.0 fL Normal 08-14 [facility] Sys tem (45921) Comment: Performed By: #### [id number] # ### MARCUS JeriHemo [address] [place] [address] Platelet mean volume 8.8 7.4-11.[address] [facility] ([facility]) [Entitic vol] System (09385) Comment: Performed By: #### [id number] # ### MARCUS RemHemo [address] [place] [address] Platelets (Bld) [#/Vol] 78 130-400 E3/mcL Low 2017 [facility] () Comment: Performed By: #### [id number] # ### MARCUS RemHemo [address] [place] [address] RBC (Bld) [#/Vol] 4.60 3.90-5.40 E6/mcL Normal 08-14-2018 [facility] () Comment: Performed By: #### [id number] # ### MARCUS RemHemo [address] [place] [address] WBC (Bld) [#/Vol] 4.2 3.6-11.0 E3/mcL Normal 08-14-2018 [facility] () Comment: Performed By: #### [id number] # ### MARCUS RemHemo [address] [place] [address] bmp on 2018-08-14 Anion gap [Moles/Vol] 13 10-20 mEq/L Normal 08-14-20 [facility] ( 000) Comment: Performed By: #### [id number] # ### MARCUS RemChem [address] [place] [address] Calcium [Mass/Vol] 8.3 8.6-10.3 mg/dL Low 08-14-2018 [facility] (40669) Comment: Performed By: #### [id number] # ### MARCUS RemChem [address] [place] [address] Chloride [Moles/Vol] 110 98-107 mEq/L High [facility] (00 000) Comment: Performed By: #### [id number] # ### MARCUS RemChem [address] [place] [address] CO2 [Moles/Vol] 21.0 21.0-32.0 mEq/L Normal 08-14-2018 [facility] ( 000) Comment: Performed By: #### [id number] # ### MARCUS RemChem [address] [place] [address] Creatinine [Mass/Vol] 1.3 0.6-1.3 mg/dL Normal 08-14-[address] [facility] (00 000) Comment: Performed By: #### [id number] # ### MARCUS RemChem [address] [place] [address] Glucose [Mass/Vol] 122 70-99 mg/dL High 08-14-2018 [facility] (21115) Comment: Performed By: #### [id number] # ### MARCUS RemChem [address] [place] [address] Potassium [Moles/Vol] 3.3 3.5-5.3 mEq/L Low 08-14-[address] [facility] (00 000) Comment: Performed By: #### [id number] # ### MARCUS RemChem [address] [place] [address] Sodium [Moles/Vol] 141 136-145 mEq/L Normal 08-14-2018 [facility] (00 000) Comment: Performed By: #### [id number] # ### MARCUSShawn [address] [address] Urea nitrogen [Mass/Vol] 13 6-23 mg/dL Normal 08-14 [facility] (00 000) Comment: Performed By: #### [id number] # ### MARCUS [address] [address] Urea nitrogen/Creatinine 10.0 5.4-30.0 ratio Normal 08-14 [facility] [Mass ratio] [facility] System (21946) Comment: Performed By: #### [id number] # ### [address] [address] auto diff on 2017-10 Basophils (Bld) [#/Vol] 0.0 0.0-0.2 E3/mcL Normal 2017 [facility] Sys tem (48707) Comment: Order Comment: Order Added b y Discern Expert. Performed By: #### [id number] # ### MARCUS WilcoxHemo [address] [place] [address] Basophils/100 WBC (Bld) 0.7 0.0-2.0 % Normal 2017 [facility] (00 000) Comment: Order Comment: Order Added b y Discern Expert. Performed By: #### [id number] # ### MARCUSShawn WilcoxBillingstreeto [address] [place] [address] Eos Absolute 0.1 0.0-0.7 E3/mcL Normal 08-14-2018 [facility] (83758) Comment: Order Comment: Order Added b y Discern Expert. Performed By: #### [id number] # ### MARCUSShawn WilcoxHemo [address] [place] [address] Eosinophils/100 WBC (Bld) 2.2 0.0-11.0 % Normal 07-19 [facility] (00 000) Comment: Order Comment: Order Added b y Discern Expert. Performed By: #### [id number] # ### [facility]US [facility] [address] [place] [address] Lymphocytes (Bld) [#/Vol] 1.4 1.2-3.4 E3/mcL Normal 07-19 [facility] (72434) Comment: Order Comment: Order Added b y Discern Expert. Performed By: #### [id number] # ### MARCUS Kenyono [address] [place] [address] Lymphocytes/100 WBC (Bld) 32.5 20.0-55.0 % Normal 07-19 [facility] (74717) Comment: Order Comment: Order Added b y Discern Expert. Performed By: #### [id number] # ### MARCUS WilcoxHemo [address] [place] [address] Cooper Absolute 0.4 0.0-0.7 E3/mcL Normal 08-14-2018 [facility] (70337) Comment: Order Comment: Order Added b y Discern Expert. Performed By: #### [id number] # ### MARCUS WilcoxHemo [address] [place] [address] Monocytes/100 WBC (Bld) 9.7 0.0-10.0 % Normal 2017 [facility] (00 000) Comment: Order Comment: Order Added b y Discern Expert. Performed By: #### [id number] # ### MARCUS WilcoxHemo [address] [place] [address] Neutro Absolute 2.3 1.4-6.5 E3/mcL Normal 08-14-2018 [facility] (14705) Comment: Order Comment: Order Added b y Discern Expert. Performed By: #### [id number] # ### MARCUS WilcoxHemo [address] [place] [address] Neutro Auto 54.9 37.0-75.0 % Normal 08-14-2018 [facility] (18807) Comment: Order Comment: Order Added b y Discern Expert. Performed By: #### [id number] # ### MARCUS WilcoxHemo [address] [place] [address] culture, urine on Culture, Urine Test Name: Culture, Urine Normal 06-16-2018 [facility] Culture Status: [facility] Culture Report: No significant growth. (46546) Micro Source: Urine - clean catch Comment: Performed By: #### GLUX #### Unless otherwise noted, all testing performed by [facility] [address]. [place], [place] [address] CLIA: [id number] Wire Hanger: Ismael vines M.D. No panel information on 2018-06-16 Bilirubin Ql (U) Negative Negative Invalid 06-16-2018 [facility] Interpretation (4321 5) Code Glucose Ql (U) Negative Normal, Invalid 06-16-2018 [facility] Negative Interpretation (4321 5) mg/dL Code Hemoglobin Test Large Negative Abnormal 06-16-2018 [facility] strip Ql (U) (82293) Interpretation and Abnormal Invalid 06-16-2018 [facility] review of Interpretation (4321 5) laboratory results Code Ketones Ql (U) Negative Negative Invalid 06-16-2018 [facility] mg/dL Interpretation (4321 5) Code Leukocyte esterase Small Negative Abnormal 06-16-2018 [facility] Test strip Ql (U) (4 3215) Nitrite Test strip Negative Negative Invalid 06-16-2018 [facility] Ql (U) Interpretation (4321 5) Code pH Test strip (U) 7.5 OTH - OTH [pH] Abnormal 06-16-2018 [facility] (13793) Protein Test strip Trace Negative Abnormal 06-16-2018 [facility] Ql (U) mg/dL (53239) Specific gravity 1.020 OTH - OTH Invalid 06-16-2018 [facility] Relative Density Interpretation (43141) (U) Code Urobilinogen Test 0.2 <2.0, 0.2, mg/d Invalid 06-16-2018 [facility] strip Qn (U) Normal, L Interpretation (4 3215) Negative, Code 1.0, 2.0, <1.0 cur on 2018-05-15 CUR . MICRO - MicrobiologyPROCEDURE: Normal 05-15-2018 [facility] Urine Culture [*1] ACCESSION: [facility] ([place]) (00338) [id number]: Urine, Straight BODY SITE: CatherizedCOLLECTED DATE/TIME: 05/13/2018 22:15 EDT RECEIVED DATE/TIME: 05/14/2018 17:17 EDTSTART DATE/TIME: 05/14/2018 17:17 EDT FREE TEXT SOURCE:PRELIMINARY REPORTSPreliminary Report []Verified Date/Time/Personnel: 05/15/2018 14:09 EDTCulture results pending.Performing Locations*1: This test was performed at: [facility], [address] [place] [address], [address]- , [facility] Comment: Performed By: #### CBC, ADIF F, ANEU ####[facility] [place], [place] [address]#### L IP, CMP, GFR ####[place] [address]70 [address] [place] [address] xr abdomen complete w/decub/erect on 2018-05-14 XR ABDOMEN COMPLETE ORIGINALSupine and Normal 0 05-14-2018 [facility] W/DECUB/ERECT upright views of the [facility] [place]) abdomen HISTORY: (00 000) Abdominal pain [...] identified. Interpreted By: Alexander Youngreliminary Report By: Alexander Young MDElectronically Signed By: Alexander Young MD Dictated Date: 05/13/2018 10:11:56 PM Prelim Date: 05/13/2018 10:11:56 PM Sign Date: 05/13/2018 10:14:29 PM patient summary documents on 2018-05-14 Patient Summary Documents Normal 04-18 [facility] ([place]) (44115) [facility] on Pat Edu Normal 05-14-2018 [facility]) (95800) [facility] note on 2018-05-14 [facility] Note Normal 0 05-14-2018 [facility] ([place]) (65162) lip on 2018-05-14 Lipase Level 250 73-393 U/L Normal 05-14-2018 [facility] ([place]) (83966) Comment: Performed By: #### CBC, ADIF F, ANEU ####Bozen[place] [address] [address]#### L IP, CMP, GFR ####[address] [address] cmp on 2018-05-14 Alanine aminotransferase (ALT) 41 10-35 U/L High 05-14-2018 [facility] ([place]) (0000 0) Comment: Performed By: #### CBC, ADIF F, ANEU ####[place] Pxsqeyiv[address] [address]#### L IP, CMP, GFR ####[place] [address] Albumin 3.4 3.5-5.0 G/dL Low 05-14-2018 [facility] ([place]) (73157) Comment: Performed By: #### CBC, ADIF F, ANEU ####Bo[place] [address]uf[address] [address]#### L IP, CMP, GFR ####[place] [address] Albumin/Globulin Ratio 1.2 1.1-2.5 ratio Normal [address] [place] [address] ([place]) (0000 0) Comment: Performed By: #### CBC, ADIF F, ANEU ####Bozen[place] [address] [address]#### L IP, CMP, GFR ####[address] [address] Alk Phos 56 40-135 U/L Normal 05-14-2018 [facility] ([place]) (67277) Comment: Performed By: #### CBC, ADIF F, ANEU ####[place] [place] [address]#### L IP, CMP, GFR ####[place] [address] Aspartate aminotransferase 42 10-40 U/L High [facility] ([facility]) ([place]) (0000 0) Comment: Performed By: #### CBC, ADIF F, ANEU ####[place] [address]#### L IP, CMP, GFR ####[place] [address] Bili Total 0.5 0.2-1.0 mg/dL Normal 05-14-2018 [facility] ([place]) (00853) Comment: Performed By: #### CBC, ADIF F, ANEU ####[place] [address]#### L IP, CMP, GFR ####[place] [address] BUN/Creatinine Ratio 14 7-27 ratio Normal 8 [facility] ([place]) (75973) Comment: Performed By: #### CBC, ADIF F, ANEU ####[place] [address]#### L IP, CMP, GFR ####[place] [address] Calcium 8.0 8.4-10.2 mg/dL Low 05-14-2018 [facility] ([place]) (32322) Comment: Performed By: #### CBC, ADIF F, ANEU ####[place] [address]#### L IP, CMP, GFR ####[place] [address] Chloride 104 98-107 mmol/L Normal 05-14-2018 [facility] ([place]) (68173) Comment: Performed By: #### CBC, ADIF F, ANEU ####[place] [address]#### L IP, CMP, GFR ####[place] [address] CO2 23 22-29 mmol/L Normal 05-14-2018 [facility] ([place]) (55459) Comment: Performed By: #### CBC, ADIF F, ANEU ####[address] [place] [place], [place] [address]#### L IP, CMP, GFR ####[place] [address] Creatinine 1.28 0.55-1.02 mg/dL High 05-14-2018 [facility] ([place]) (11254) Comment: Performed By: #### CBC, ADIF F, ANEU ####[address] [place] [place] [address]#### L IP, CMP, GFR ####[place] [address] Electrolyte Balance 9.0 mEq/L Normal 05-14-2018 [facility] ([place]) (66923) Comment: Performed By: #### CBC, ADIF F, ANEU ####[address] [place] [place] [address]#### L IP, CMP, GFR ####[place] [address] Globulin 2.9 G/dL Normal 05-14-2018 [facility] ([place]) (47711) Comment: Performed By: #### CBC, ADIF F, ANEU ####[address] [place] [place], [place] [address]#### L IP, CMP, GFR ####[place] [address] Glucose mass conc 90 70-105 mg/dL Normal 05-14-2018 A [facility] ([place]) (73366) Comment: Performed By: #### CBC, ADIF F, ANEU ####[address] [place] [place], [place] [address]#### L IP, CMP, GFR ####[place] [address] Potassium molar conc 4.6 3.5-5.1 mmol/L Normal 8 [facility] ([place]) (0000 0) Comment: Performed By: #### CBC, ADIF F, ANEU ####[address] Ozvt[address]kb[address] [place], [place] [address]#### L IP, CMP, GFR ####[place] [address]70 [address] [place] [address] Protein 6.3 6.4-8.2 G/dL Low 05-14-2018 [facility] ([place]) (69482) Comment: Performed By: #### CBC, ADIF F, ANEU ####[address] Olxrxgrb[address] [place], [place] [address]#### L IP, CMP, GFR ####[address] [address] Sodium 136 136-145 mmol/L Normal 05-14-2018 [facility] ([place]) (43055) Comment: Performed By: #### CBC, ADIF F, ANEU ####Bozena [address] [address]#### L IP, CMP, GFR ####[address] [address] Urea nitrogen 18 7-18 mg/dL Normal 05-14-2018 [facility] ([place]) (72242) Comment: Performed By: #### CBC, ADIF F, ANEU ####[address] [address]#### L IP, CMP, GFR ####[address] [address] .gfr on 2018-05-14 GFR Non- 45 ml/min/1.73sqm Normal 05-14-2018 [facility] ([place]) (87149) Comment: Result Comment: GFR Populati on mean [...] #### CBC, ADIF F, ANEU ####Bo[address] Ló[address] [place], [place] [address]#### L IP, CMP, GFR ####[place] [address] [place] [address] GFR 55 ml/min/1.73sqm Normal - [facility] ([place]) (0000 0) Comment: Result Comment: GFR Populati [...] #### CBC, ADIF F, ANEU ####Bozena L[address] [place], [place] [address]#### L IP, CMP, GFR ####[place] [address] [place] [address] ua on 2018-05-13 UA Appear Slightly Cloudy Clear Invalid Interpretation 0 05-13-2018 [facility] ([place]) (36425) Comment: Performed By: #### UA, PREGU , UAMICAO ####Bo[address] L[address] [place], [place] [address] UA Blood Negative Negative Normal 05-13-2018 [facility] ([place]) (51972) Comment: Performed By: #### UA, PREGU , UAMICAO ####[address] [place] [place], [place] [address] UA Leuk Est Small Negative Invalid Interpretation 05-13 [facility] ([place]) (62785) Comment: Performed By: #### UA, PREGU , UAMICAO ####[place] Avhenajc[address] [place], [place] [address] UA Nitrite Negative Negative Normal 05-13-2018 [facility] ([place]) (45569) Comment: Performed By: #### UA, PREGU , UAMICAO ####[place] Qzonfapc[address] [place], [place] [address] UA pH 7.5 Normal 05-13-2018 [facility] ([place]) (52125) Comment: Performed By: #### UA, PREGU , UAMICAO ####[place] Zftdcgvx[address] [place], [place] [address] UA Protein Negative Negative Normal 05-13-2018 [facility] ([place]) (75452) Comment: Performed By: #### UA, PREGU , UAMICAO ####[place] Kwvnzjqf[address] [place], [place] [address] UA Spec Grav 1.005 Invalid Interpretation Code 05-13-2018 [facility] ([place]) (94452) Comment: Performed By: #### UA, PREGU , UAMICAO ####[place] Agoocpaz[address] [place], [place] [address] UA Specimen Type Clean Catch Normal 05-13-2018 [facility] ([place]) (86585) Comment: Performed By: #### UA, PREGU , UAMICAO ####[place] Ivhklidz[address] [place], [place] [address] UA Urobilinogen 0.2 E.U./dL Normal 05-13-2018 [facility] ([place]) (65243) Comment: Performed By: #### UA, PREGU , UAMICAO ####[place] Fwdkeana[address] [place], [place] [address] Urine, color Yellow Normal 05-13-2018 [facility] ([place]) (38028) Comment: Performed By: #### UA, PREGU , UAMICAO ####[place] Tnaobifs[address] [place], [place] [address] Urine, glucose Negative Negative mg/dL Normal 05-13-2018 [facility] ([place]) (0000 0) Comment: Performed By: #### UA, PREGU , UAMICAO ####Bozen[address] López[address] [place], [place] [address] Urine, ketones presence Negative Negative Normal 2017 [facility] ([place]) (91759) Comment: Performed By: #### UA, PREGU , UAMICAO ####[place] [address] [place], [place] [address] Urine, Negative Negative {Ayla'U}/dL Normal 05-13-2018 [facility] urobilinogen Foundat ion ([place]) (53029) Comment: Performed By: #### UA, PREGU , UAMICAO ####[place] L[address] [place], [place] [address] pregu on 2018-05-13 HCG ( test) Ql (U) Negative Normal [facility] ([place]) (0000 0) Comment: Performed By: #### UA, PREGU , UAMICAO ####[place] L[address] [place], [place] [address] test HCG not Invalid 05-13-2018 [facility] (u) int detected. Interpretation Code [facility] ([place]) (76672) Comment: Performed By: #### UA, PREGU , UAMICAO ####[address] [place] [place], [place] [address] cbc on 2018-05-13 Erythrocyte distribution 13.9 11.5-14.5 % Normal 05-13 [facility] width Auto Ratio (RBC) [facility] ([place]) (80942) Comment: Performed By: #### CBC, ADIF F, ANEU ####[place] E[address]qc[address] [place], [place] [address]#### L IP, CMP, GFR ####[address] [address] Erythrocytes (RBC) 5.57 4.20-5.40 10 6/mcL High 05-13-2018 [facility] ([place]) (0000 0) Comment: Performed By: #### CBC, ADIF F, ANEU ####[place] [address]#### L IP, CMP, GFR ####[place] [address] Hematocrit (HCT) 49.2 37.0-47.0 % High 05-13-2018 [facility] ([place]) (41464) Comment: Performed By: #### CBC, ADIF F, ANEU ####[place] [address]#### L IP, CMP, GFR ####[place] [address] Hemoglobin mass conc 17.1 12.0-16.0 G/dL High [address] [place] [address] ([facility] ([place]) (95548) Comment: Performed By: #### CBC, ADIF F, ANEU ####[place] [address]#### L IP, CMP, GFR ####[place] [address] MCH 30.6 27.0-31.2 pg Normal 05-13-2018 [facility] ([place]) (07311) Comment: Performed By: #### CBC, ADIF F, ANEU ####[place] [address]#### L IP, CMP, GFR ####[place] [address] MCHC mass conc (RBC) 34.7 33.0-37.0 G/dL Normal 8 [facility] ([place]) (0000 0) Comment: Performed By: #### CBC, ADIF F, ANEU ####[place] [address]#### L IP, CMP, GFR ####[place] [address] MCV 88.3 80.0-94.0 fL Normal 05-13-2018 [facility] ([place]) (51403) Comment: Performed By: #### CBC, ADIF F, ANEU ####[place] [place] [address]#### L IP, CMP, GFR ####[address] [address] Platelet mean volume 8.0 7.4-10.4 fL Normal 8 [facility] ([facility]) ([place]) (0000 0) Comment: Performed By: #### CBC, ADIF F, ANEU ####[place] [address]#### L IP, CMP, GFR ####[address] [address] Platelets 113 130-400 10 3/mcL Low 05-13-2018 [facility] ([place]) (85636) Comment: Performed By: #### CBC, ADIF F, ANEU ####[place] [address]#### L IP, CMP, GFR ####[place] [address] WBC (Leukocytes) 9.10 4.60-10.80 10 3/mcL Normal 05-13-2018 A [facility] ([place]) (0000 0) Comment: Performed By: #### CBC, ADIF F, ANEU ####[place] [id number]#### L IP, CMP, GFR ####[address] [address] .urinalysis microscopic (ao) on 2018-05-13 UA Bacteria 1+ /hpf Invalid Interpretation Code 05-13-2018 [facility] ([place]) (35262) Comment: Performed By: #### UA, PREGU , UAMICAO ####[place] Ncdieiov[address] [place] [id number] UA Squam LOADED None Seen Invalid 05-13-2018 [facility] Epithelial Interpretation Code [facility] ([place]) (21157) Comment: Performed By: #### UA, PREGU , UAMICAO ####[address] [place] [id number] UA WBC LOADED None Seen Invalid Interpretation 018 [facility] ([place]) (51067) Comment: Performed By: #### UA, PREGU , UAMICAO ####[place] Gs[address]wkife[address] [place], [place] [address] Urine, erythrocytes None Seen None Seen Normal 05-13-2018 [facility] ([place]) (0000 0) Comment: Performed By: #### UA, PREGU , UAMICAO ####[place] Qls[address] [place], [place] [address] .neuabs on Neutrophil, Absolute 6.70 2.85-6.16 10 3/mcL High 8 [facility]) (46066) Comment: Performed By: #### CBC, ADIF F, ANEU ####[address] [address]#### L IP, CMP, GFR ####[place] [address] .auto diff on 05-13 Basophils Auto #/vol 0.00 0.00-0.19 10 3/mcL Normal 8 [facility] ([facility]) (67205) Comment: Performed By: #### CBC, ADIF F, ANEU ####[address] [address]#### L IP, CMP, GFR ####[address] [address] Basophils/100 WBC Auto (d) 0.5 0.0-2.5 % Normal 0 05-13-2018 [facility] ([place]) (0000 0) Comment: Performed By: #### CBC, ADIF F, ANEU ####[place] [id number]#### L IP, CMP, GFR ####[address] [address] Eosinophils 0.10 0.00-0.40 10 3/mcL Normal 05-13-2018 [facility]) (32841) Comment: Performed By: #### CBC, ADIF F, ANEU ####[place] [address]#### L IP, CMP, GFR ####[address] [address] Eosinophils/100 leukocytes 0.8 0.0-7.0 % Normal [facility] ([place]) (0000 0) Comment: Performed By: #### CBC, ADIF F, ANEU ####[place] [address]#### L IP, CMP, GFR ####[address] [address] Lymphocytes 1.60 0.77-3.85 10 3/mcL Normal 05-13-2018 [facility] ([place]) (12028) Comment: Performed By: #### CBC, ADIF F, ANEU ####[place] [address]#### L IP, CMP, GFR ####[address] [address] Lymphocytes/100 leukocytes 18.0 10.0-50.0 % Normal [facility] ([place]) (20874) Comment: Performed By: #### CBC, ADIF F, ANEU ####[place] [address]#### L IP, CMP, GFR ####[address] [address] Monocytes 0.60 0.15-1.00 10 3/[facility] Normal 05-13-2018 [facility] ([place]) (40743) Comment: Performed By: #### CBC, ADIF F, ANEU ####[place] [address]#### L IP, CMP, GFR ####[address] [address] Monocytes/100 leukocytes 6.8 1.7-13.0 % Normal 05-13 [facility] ([place]) (0000 0) Comment: Performed By: #### CBC, ADIF F, ANEU ####[address] [place], [place] [address]#### L IP, CMP, GFR ####[place] [address] [place] [address] Neutrophils/100 WBC Auto 73.9 37.0-80.0 % Normal 05-13 [facility] (d) [facility] ([place]) (90688) Comment: Performed By: #### CBC, ADIF F, ANEU ####[facility] [place], [place] [address]#### L IP, CMP, GFR ####[place] [address] [place] [address] urinalysis, routine on 2018-03-15 Bacteria LM.HPF #/area Few NS;RARE Abnormal [address] [place] [address] and (Urine sed) [facility] ([id number]) Comment: Performed By: #### GLUX #### Unless otherwise noted, all testing performed by [facility] [address] [address] CLIA: [id number] Wire Hanger: Ismael vines M.D. Bilirubin,Urine Negative NEG;NEGATIVE Normal 03-15-2018 [facility] ([id number]) Comment: Performed By: #### GLUX #### Unless otherwise noted, all testing performed by [facility] [address] [address] CLIA: [id number] Wire Hanger: Ismael vines M.D. Blood,Urine Small NEG;NEGATIVE Abnormal 03-15-2018 [facility] ([id number]) Comment: Performed By: #### GLUX #### Unless otherwise noted, all testing performed by [facility] [address] [address] CLIA: [id number] Wire Hanger: Ismael F ain, M.D. Character Nom (U) Cloudy Normal 03-15-2018 [facility] ([id number]) Comment: Performed By: #### GLUX #### Unless otherwise noted, all testing performed by [place] [address] CLIA: [id number] Wire Hanger: Ismael vines M.D. Color Nom (U) Yellow Normal 03-15-2018 [facility] (60977) Comment: Performed By: #### GLUX #### Unless otherwise noted, all testing performed by [place] [address] CLIA: [id number] Wire Hanger: Ismael vines M.D. Glucose Ql (U) Negative NEG;NEGATIVE Normal 03-15-2018 [facility] (26258) Comment: Performed By: #### GLUX #### Unless otherwise noted, all testing performed by [place] [address] CLIA: [id number] Wire Hanger: Ismael vines M.D. Ketone,Urine Negative NEG;NEGATIVE Normal 03-15-2018 [facility] ([id number]) Comment: Performed By: #### GLUX #### Unless otherwise noted, all testing performed by [place] [address] CLIA: [id number] Wire Hanger: Ismael vines M.D. Leuk.Esterase,Urine Large Negative Abnormal 03-15-2018 [facility] (52172) Comment: Performed By: #### GLUX #### Unless otherwise noted, all testing performed by [place] [address] CLIA: [id number] Wire Hanger: Ismael vines M.D. Nitrite,Urine Negative NEG;NEGATIVE Normal 03-15-2018 [facility] (11740) Comment: Performed By: #### GLUX #### Unless otherwise noted, all testing performed by [facility] [address] [address] CLIA: [id number] Wire Hanger: Ismael vines M.D. pH (U) 5.0 4.5-8.0 [pH] Normal 03-15-2018 [facility] (88553) Comment: Performed By: #### GLUX #### Unless otherwise noted, all testing performed by [place] [address] CLIA: [id number] Wire Hanger: Ismael vines M.D. Protein mass conc Negative NEG;NEGATIVE mg/dL Normal 8 [facility] ([facility] (10873) Comment: Performed By: #### GLUX #### Unless otherwise noted, all testing performed by [place] [address] CLIA: [id number] Wire Hanger: Ismael vines M.D. RBC,Urine 8 0-5 /HPF High 03-15-2018 [facility] (40207) Comment: Performed By: #### GLUX #### Unless otherwise noted, all testing performed by [facility] [address] [address] CLIA: [id number] Wire Hanger: Ismael vines M.D. Specific [place],Urine 1.015 1.003-1.029 Normal 03-15 [facility] (42353) Comment: Performed By: #### GLUX #### Unless otherwise noted, all testing performed by [facility] [address] [facility] [place] [address] CLIA: [id number] Wire Hanger: Ismael vines M.D. Squamous Epithelial 11 0-40 /HPF Normal 03-15-2018 [facility] (73790) Comment: Performed By: #### GLUX #### Unless otherwise noted, all testing performed by [facility] [address] [facility] [place] [address] CLIA: [id number] Wire Hanger: Ismael vines M.D. Urobilinogen,Urine < 2.0 <2 Normal 03-15-2018 [facility] (40937) Comment: Performed By: #### GLUX #### Unless otherwise noted, all testing performed by [facility] [address] [address] CLIA: [id number] Wire Hanger: Ismael vines M.D. WBC,Urine 46 0-5 /HPF High 03-15-2018 [facility] ([id number]) Comment: Performed By: #### GLUX #### Unless otherwise noted, all testing performed by [facility] [address] [facility] [place] [address] CLIA: [id number] Wire Hanger: Ismael vines M.D. test,urine qual on 2018-03-15 HCG.beta subunit Negative Negative Normal 03-15-2018 [facility] ( [facility] (21243[facility] Comment: Result Comment: Rapid test p rocedural [...] Unless otherwise noted, all testing performed by [facility] [address] [place] [address] CLIA: [id number] Wire Hanger: Ismael vines M.D. lipase on 2018-02-16 9 Lipase enzyme act/vol 288 73-393 U/L Normal 03-15-20 18 [facility] (26205) Comment: Performed By: #### GLUX #### Unless otherwise noted, all testing performed by [facility] [address] [facility] [place] [address] CLIA: [id number] Wire Hanger: Ismael vines M.D. ed cardiac troponin-i on 2018-03-15 Troponin I.cardiac mass < 15 < 45 ng/mL Normal 2017 [facility] (30910) Comment: Result Comment: Elevation of troponin indicates [...] Unless otherwise noted, all testing performed by [facility] [address] [facility] [place] [address] CLIA: [id number] Wire Hanger: Ismael vines M.D. comprehensive metabolic panel on 2018-03-15 Albumin mass conc 3.8 3.2-5.2 g/dL Normal 03-15-2018 [facility] (81001) Comment: Performed By: #### GLUX #### Unless otherwise noted, all testing performed by [facility] [address] [facility]. [place] [address] CLIA: [id number] Wire Hanger: Ismael vines M.D. ALP enzyme act/vol 66 40-150 U/L Normal 03-15-2018 [facility] (72730) Comment: Performed By: #### GLUX #### Unless otherwise noted, all testing performed by [facility] [address] [address] CLIA: [id number] Wire Hanger: Ismael vines M.D. ALT enzyme act/vol 56 14-65 U/L Normal 03-15-2018 [facility] (30199) Comment: Result Comment: This test re sult might be falsely depressed or falsely elevated on samples drawn from patients taking Sulfasalazine and Sulfapyridine. Venipuncture should occur pr ior to taking either of these drugs. Performed By: #### GLUX #### Unless otherwise noted, all testing performed by [facility] [address] [address] CLIA: [id number] Wire Hanger: Ismael vines M.D. AST enzyme act/vol 51 0-45 U/L High 03-15-2018 [facility] (88026) Comment: Result Comment: This test re sult might be falsely depressed or falsely elevated on samples drawn from patients taking Sulfasalazine and Sulfapyridine. Venipuncture should occur pr ior to taking either of these drugs. Performed By: #### GLUX #### Unless otherwise noted, all testing performed by [facility] [address] [address] CLIA: [id number] Wire Hanger: Ismael vines M.D. Bilirubin mass conc 0.5 0.3-1.2 mg/dL Normal 03-15-2018 [facility] (55054) Comment: Performed By: #### GLUX #### Unless otherwise noted, all testing performed by [facility] l [address] [place] [address] CLIA: [id number] Wire Hanger: Ismael vines M.D. Calcium mass conc 9.7 8.4-10.2 mg/dL Normal 03-15-2018 [facility] (59460) Comment: Performed By: #### GLUX #### Unless otherwise noted, all testing performed by [place] [address] CLIA: [id number] Wire Hanger: Ismael vines M.D. Chloride molar conc 105 98-108 mmol/L Normal 03-15-2018 [facility] (92708) Comment: Performed By: #### GLUX #### Unless otherwise noted, all testing performed by [place] [address] CLIA: [id number] Wire Hanger: Ismael vines M.D. CO2 molar conc 26 21-32 mmol/L Normal 03-15-2018 [facility] (80065) Comment: Performed By: #### GLUX #### Unless otherwise noted, all testing performed by [place] [address] CLIA: [id number] Wire Hanger: Ismael vines M.D. Creatinine mass conc 1.67 0.40-1.10 mg/dL High 8 [facility] (85859) Comment: Performed By: #### GLUX #### Unless otherwise noted, all testing performed by [facility] [address] [place] [address] CLIA: [id number] Wire Hanger: Ismael vines M.D. GFR/1.73 sq M predicted 40 >60 ml/min/1.73sq.m Low 03-15-2018 [facility] and among blacks [facility] (35675) rate/area (S/P/Bld) Comment: Result Comment: Amer ican GFR Calc Performed By: #### GLUX #### Unless otherwise noted, all testing performed by [facility] [address] [facility] [place] [address] CLIA: [id number] Wire Hanger: Ismael vines M.D. GFR/1.73 sq M predicted 33 >60 ml/min/1.73sq.m Low 03-15-2018 [facility] among non-blacks [facility] vol rate/area (S/P/Bld) (60765) Comment: Result Comment: Non- GFR Calc eGFR [...] Unless otherwise noted, all testing performed by [facility] [address] [facility] [place] [address] CLIA: [id number] Wire Hanger: Ismael vines M.D. Glucose mass conc 88 70-99 mg/dL Normal 03-15-2018 [facility] (03345) Comment: Result Comment: This test re sult might be falsely depressed or falsely elevated on samples drawn from patients taking Sulfasalazine and Sulfapyridine. Venipuncture should occur pr ior to taking either of these drugs. Performed By: #### GLUX #### Unless otherwise noted, all testing performed by [facility] [address] [facility] [place] [address] CLIA: [id number] Wire Hanger: Ismael vines M.D. Potassium molar conc 4.4 3.5-5.1 mmol/L Normal 8 [facility] (03530) Comment: Performed By: #### GLUX #### Unless otherwise noted, all testing performed by [facility] [address] [address] CLIA: [id number] Wire Hanger: Ismael vines M.D. Protein mass conc 7.3 6.0-8.0 g/dL Normal 03-15-2018 [facility] (95405) Comment: Performed By: #### GLUX #### Unless otherwise noted, all testing performed by [facility] [address] [address] CLIA: [id number] Wire Hanger: Ismael vines M.D. Sodium molar conc 137 135-145 mmol/L Normal 03-15-2018 [facility] (54797) Comment: Performed By: #### GLUX #### Unless otherwise noted, all testing performed by [facility] [address] [address] CLIA: [id number] Wire Hanger: Ismael vines M.D. Urea nitrogen mass conc 30 8-25 mg/dL High 2017 [facility] (47308) Comment: Performed By: #### GLUX #### Unless otherwise noted, all testing performed by [facility] [address] [facility] [place] [address] CLIA: [id number] Wire Hanger: Ismael vines M.D. cbc with diff on 04-03-29 Basophils #/vol (Bld) 0.1 0-0.2 K/mcL Normal 03-15-20 [facility] (98867) Comment: Performed By: #### CBCDIF, E DCTNI, CMET, LIPASE #### Unless otherwise noted, all testing performed by [place] [address] CLIA: [id number] Wire Hanger: Ismael vines M.D. Basophils/100 WBC (Bld) 1.1 % Normal 2017 [facility] (70364) Comment: Performed By: #### CBCDIF, E DCTNI, CMET, LIPASE #### Unless otherwise noted, all testing performed by [place] [address] CLIA: [id number] Wire Hanger: Ismael vines M.D. Eosinophils #/vol (Bld) 0.2 0-0.5 K/mcL Normal 2017 [facility] (36012) Comment: Performed By: #### CBCDIF, E DCTNI, CMET, LIPASE #### Unless otherwise noted, all testing performed by [place] [address] CLIA: [id number] Wire Hanger: Ismael vines M.D. Eosinophils/100 WBC (Bld) 3.2 % Normal 02-16 [facility] (22058) Comment: Performed By: #### CBCDIF, E DCTNI, CMET, LIPASE #### Unless otherwise noted, all testing performed by [place] [address] CLIA: [id number] Wire Hanger: Ismael vines M.D. Erythrocyte distribution 13.4 10.0-14.4 % Normal 03-15 [facility] and width Ratio (RBC) [facility] (36763) Comment: Performed By: #### CBCDIF, E DCTNI, CMET, LIPASE #### Unless otherwise noted, all testing performed by [place] [address] CLIA: [id number] Wire Hanger: Ismael vines M.D. Hematocrit Volume Fraction 47.8 34.4-44.8 % High [facility] and ([facility]) [facility] (50477) Comment: Performed By: #### CBCDIF, E DCTNI, CMET, LIPASE #### Unless otherwise noted, all testing performed by [place] [phone] CLIA: [id number] Wire Hanger: Ismael vines M.D. Hemoglobin mass conc 15.7 11.6-15.4 g/dL High 8 [facility] and ([facility]) [facility] (51180) Comment: Performed By: #### CBCDIF, E DCTNI, CMET, LIPASE #### Unless otherwise noted, all testing performed by [place] [address] CLIA: [id number] Wire Hanger: Ismael vines M.D. Lymphocytes #/vol (Bld) 1.4 1.0-3.7 K/mcL Normal 2017 [facility] and [facility] (14495) Comment: Performed By: #### CBCDIF, E DCTNI, CMET, LIPASE #### Unless otherwise noted, all testing performed by [address], [place] [address] CLIA: [id number] Wire Hanger: Ismael vines M.D. Lymphocytes/100 WBC (Bld) 24.7 % Normal 02-16 [facility] (29584) Comment: Performed By: #### CBCDIF, E DCTNI, CMET, LIPASE #### Unless otherwise noted, all testing performed by [place] [address] CLIA: [id number] Wire Hanger: Ismael vines M.D. MCH Entitic mass (RBC) 29.6 27.9-33.9 pg Normal [address] [place] [address] ([address]89) Comment: Performed By: #### CBCDIF, E DCTNI, CMET, LIPASE #### Unless otherwise noted, all testing performed by [place] [address] CLIA: [id number] Wire Hanger: Ismael vines M.D. MCHC mass conc (RBC) 32.8 33.1-35.1 g/dL Low 8 [facility] (66843) Comment: Performed By: #### CBCDIF, E DCTNI, CMET, LIPASE #### Unless otherwise noted, all testing performed by [place] [address] CLIA: [id number] Wire Hanger: Ismael vines M.D. MCV Entitic volume 90.5 82.6-98.9 FL Normal 03-15-2018 [facility] and (RBC) [facility] (37269) Comment: Performed By: #### CBCDIF, E DCTNI, CMET, LIPASE #### Unless otherwise noted, all testing performed by [address] [place], [place] [address] CLIA: [id number] Wire Hanger: Ismael vines M.D. Metamyelocytes/100 WBC (Bld) 2.2 0 % High 0 03-15-2018 [facility] (27607) Comment: Performed By: #### CBCDIF, E DCTNI, CMET, LIPASE #### Unless otherwise noted, all testing performed by [place] [address] CLIA: [id number] Wire Hanger: Ismale vines M.D. Monocytes #/vol (Bld) 0.2 0.1-0.6 K/mcL Normal 03-15-20 18 [facility] (78024) Comment: Performed By: #### CBCDIF, E DCTNI, CMET, LIPASE #### Unless otherwise noted, all testing performed by [place] [address] CLIA: [id number] Wire Hanger: Ismael vines M.D. Monocytes/100 WBC (Bld) 3.2 % Normal 2017 [facility] (89303) Comment: Performed By: #### CBCDIF, E DCTNI, CMET, LIPASE #### Unless otherwise noted, all testing performed by [place] [address] CLIA: [id number] Wire Hanger: Ismael vines M.D. Neutrophils #/vol (Bld) 3.9 1.2-6.9 K/mcL Normal 2017 [facility] (20033) Comment: Performed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 [facility]/Darren Shaikh ? Dehydration 12/12/2018 Info Gained From: /[facility] --- Shilpa Jensen ? Depression ? Epilepsy (HCC) 08/06/2011 [facility]- Dr. Chopra ? Epilepsy (HCC) 1993 ? Facet degeneration of lumbar region 10/14/2018 [facility]/Moi De La Cruz MD Mild facet degenerative changes seen in the lower lumbar spine ? Fatty liver [facility]/Joe Mendieta MD Mild fibrofatty changes of the liver ? Fluid collection (edema) in the arms, legs, hands and feet 03/09/2018 Dr valentina Chopra ? Gastritis determined by endoscopy 12/29/2016 Dr. GonzalezAklxwg-Dzznyllzr-esslgpdmyqquh nonbleeding with biopsy ? Hepatic steatosis [facility]/Heidy Jara MD Mild ? Hiatal hernia 12/29/[address] Lobo grade 4 ? Hypercholesterolemia [facility]/Jonatan Chiu DO ? Hypertension 2000 2000-present ? Insomnia Neuro [facility]/Darren Shaikh ? Kidney stone [facility]/Darren Shaikh ? Low back pain 10/14/2018 [facility]/Moi De La Cruz MD ? Lung nodule 12/15/2017 0.5 cm pleural based nodule in right middle lobe. Mild linear atelectasis ? Mitral valve prolapse [facility]/Darren Shaikh ? Rectus diastasis [facility]/Heidy Jara MD Present with small wide necked perumbical ventral containing fat. ? Second degree burn of foot 04/23/2018 Right Foot - [facility] ? Seizure (HCC) [facility]/Moi De La Cruz MD ? Sleep apnea ? Stroke (HCC) 2001 mild ? Tremor ? Upper abdominal pain 12/03/2018 Info Gained From: /[facility] E/R Report --- Murray ALEXIS,Ac Escobar Past Surgical History: Procedure Laterality Date ? Conner pH capsule placement 02/01/2017 Dr. Lobo ? BREAST REDUCTION 2000 bilateral ? EGD 12/29/2016 Dr. Lobo-[facility]-grade 4 hiatal hernia-nonperforating gastritis ? ESOPHAGEAL MANOMETRY [...] She had a meeting on Wednesday with Medication Coordinator and assisted living and they are waiting to hear back to see if she qualifies to live in the [facility]. Tremors: Patient continues to be off of the Valproic acid until she is seen by Neurology in [facility],Dr. Chopra, her apt is 03/16/2019. She [...] has been having an increase in headaches. Medication Coordinator is making notes of all of these symptoms so she can let the neurologist know at her apt. The following portions of the patient's history were reviewed and updated as appropriate: allergies,current medications, past family history, past medical history, past social history, past surgical history and problem list. Past Medical History: Diagnosis Date ? Acquired thrombocytopenia ([facility]) [facility]/Darren Shaikh ? Acute kidney injury ([facility]) 05/22/2018 [facility]/Jonatan Chiu DO ? Anxiety ? Calcaneal spur of right foot 2017 Documented on x-ray ? Chronic kidney disease, stage III (moderate) ([facility]) 2000 ? Congestive heart failure (CHF) ([facility]) [facility]/Darren Shaikh ? Depression ? Epilepsy ([facility]) 08/06/2011 [facility]- Dr. Chopra ? Epilepsy ([facility]) 1993 ? Facet degeneration of lumbar region 10/14/2018 [facility]/Jono ALEXIS, Moi Mild facet degenerative changes seen in the lower lumbar spine ? Fatty liver [facility]/Joe Mendieta MD Mild fibrofatty changes of the liver ? Fluid collection (edema) in the arms, legs, hands and feet 03/09/2018 Dr valentina Chopra ? Gastritis determined by endoscopy 12/29/2016 Dr. GonzalezBljvqe-Zokxfipph-alpkgbyouqmrp nonbleeding with biopsy ? Hepatic steatosis [facility]/Heidy Jara MD Mild ? Hiatal hernia 12/29/[address] Lobo grade 4 ? Hypercholesterolemia [facility]/Jonatan Chiu DO ? Hypertension 2000 2000-present ? Insomnia [facility]Darren [facility] ? Kidney [facility]/Darren [facility] ? Lung nodule 12/15/2017 0.5 cm pleural based nodule in right middle lobe. Mild linear atelectasis ? Mitral valve prolapse [facility]/Darren Shaikh ? Rectus diastasis [facility]/Heidy Jara MD Present with small wide necked perumbical ventral containing fat. ? Second degree burn of foot 04/23/2018 Right Foot - [facility] ? Sleep apnea ? Stroke (HCC) 2000 mild ? Tremor Past Surgical History: Procedure Laterality Date ? Conner pH capsule placement 02/01/2017 Dr. Lobo ? BREAST REDUCTION 2000 bilateral ? EGD 12/29/2016 Dr. Lobo-[facility]-grade 4 hiatal hernia-nonperforating gastritis ? [...] ED/admit notes faxed To Neuro at # [phone] Pre-auth Amandeep approved Mickidi prior auth. received [...] Via: Telephone ? Patient was Discharged From [facility] ? Discharge Diagnosis: HTN, anxiety, seizures ? [...] 03/15/19 to ED stating seizures. Transferred to [facility]. Describes turned to change her clothes and [...] Seek Emergent Care with EMS/911/ED, When to Returned Item Clerk and As Directed by FURNITURE DETAILER/Surgeon/Specialist Additional Information Discussed: Yes Providers/Clinics: Home Health Care Arrangements Initiated: No Follow up with Valentina Chopra MD Specialty: Neurology [address] [place] [address] Future Appointments Date Time Provider Department Center [...] - 03/31/2019 2:44 PM EDT SS from [facility] phoned, beginning evaluation for assisted living. Provided [...] [address] [place], [place] [address] [place], [place] Phone: [phone] Phone: Fax: Status Reason Specialty Diagnoses / Referred By Referred To Procedures Contact Contact Pending Review Cardiology Diagnoses Chest pain at rest Mattie Hayden Procedures Echocardiogram complete MD [address] [place] [address] Status Reason Specialty Diagnoses / Referred By Referred To Procedures Contact Contact Pending Review Radiology Diagnoses Chest pain at rest Mattie Hayden Procedures NM Myocardial Perfusion Multiple SPECT MD [address] [place] [id number] Status Reason Specialty Diagnoses / Referred By Contact Refe rred To Contact Procedures Closed Cardiology Diagnoses Essential hypertension Chronic kidney disease, stage III (moderate) (HCC) Chest pain at rest Mattie Chen Janina, [facility] MD [address] [place] [address] [address] [place] [address] Phone: Fax: Discharge Instructions Meena Alicea RN [...] Log into your personal health record on [email or web address] and enter M769 in the Education box to learn more about Seizure: Care Instructions. Current as of: March 20, 2018 Content Version: 12.0 ? [id number] [employer]. Care instructions adapted under license by your healthcare professional. If you have questions about a medical condition or this instruction, always ask your healthcare professional. [employer] disclaims any warranty or liability for your [...] BE BASED ON THE PRIMARY CLINICAL RECORDS. [facility] provides no warranty or guarantee of the accuracy or completeness of information in this document. UNRECOGNIZED CONTENT PROVIDED BELOW FOR UNRECOGNIZED SECTION INFORMATION SOURCE DATE CREATED AUTHOR AUTHOR'S ORGANIZATIO N 12/06/2018 [facility] DATE CREATED AUTHOR AUTHOR'S ORGANIZATIO N 04/12/2018 [facility] DATE CREATED AUTHOR AUTHOR'S ORGANIZATIO N 04/12/2018 [facility] DATE CREATED AUTHOR AUTHOR'S ORGANIZATIO N 04/22/2018 [facility] DATE CREATED AUTHOR AUTHOR'S ORGANIZATIO N 05/15/2018 [facility] ([place]) DATE CREATED AUTHOR AUTHOR'S ORGANIZATIO N 12/25/2018 [facility] DATE CREATED AUTHOR AUTHOR'S ORGANIZATIO N 05/27/2019 [facility] DATE CREATED AUTHOR AUTHOR'S ORGANIZATIO N 07/20/2019 [facility] DATE CREATED AUTHOR AUTHOR'S ORGANIZATIO N 12/02/2019 [facility] DATE CREATED AUTHOR AUTHOR'S ORGANIZATIO N 12/07/2019 [facility] DATE CREATED AUTHOR AUTHOR'S ORGANIZATIO N [...] and allow cool down until at least care home back to the pre exercise hear rate. [...] and allow cool down until at least care home back to the pre exercise hear rate. [...] trending down how you burn calories. 3500 agby equals 1 pound and 150 gaby over [...] to consider following up with the general pulmonary disease specialist.in this encounterAssessment & Plan Note - Nedra Brewer CNP - 10/12/2018 3:13 PM ESTAssociated Problem(s): [facility]/left arm [...] your blood pressure was elevated at the refrigerating machine operator's office today because you had not taking your Cardura as the refrigerating machine operator thought. Your blood pressure has decreased since [...] include nonsteroidals. The nonsteroidal class includes the nalh-mft-fphfclm medications of Motrin, Advil, Aleve, ibuprofen, Naprosyn as well as all the prescription nonsteroidals. Typically we follow individuals with chronic kidney disease a minimum of 2-3 times a year. As the kidney disease progresses we monitor closer. Typically start with a minimum of twice a year lab work and increase to every 3 months if indicated. Referral to a kidney specialist or assistant financial accountant is obtained with sudden declining kidney function, [...] been out of bed since arriving at [facility]. She lives with her cousin. She [...] toxicity. She follows with Dr. Gillette from [place]. She was also using Keppra 750 mg [...] to 1000 mg twice a day. 3. [place] seizure precautions. 4. Monitor frequency alcohol seizures. [...] Portions of this chart was created using 1EQ voice recognition software. Occasional wrong-word or sound-like [...] 7:58 AM EDTThis nurse sent CD from [place] with X-Ray information with Mattie from CT per instructions from [facility] to be scanned into patient's record. Meena Way RN - 03/16/2019 7:41 AM EDTPatikelechi's medications prior to admission are present in the med room in a cooler and need to be reviewed with this nurse and patient. There are reportedly (per patient) medications therein that she is allergic to. Per night time babysitter, admission is not complete Meena Way RN - 03/16/2019 7:39 AM EDTPlaci is awake and alert, sitting in bed and able to express her needs. She reports that the tremors she is having at bedside report time are her baseline. No seizure activity reported. She also reports that she will be going to [facility] in [place] soon. documented in this encounter UNRECOGNIZED CONTENT [...] Chest pain at rest [place], Mattie Chen, FURNITURE DETAILER MD [address] [place], [place] [address] [place] [address] Phone: Fax: Reason Comments Hypertension Sore Throat X 3 days Status Reason Specialty Diagnoses / Referred By Referred To Procedures Contact Contact Pending Review Radiology Diagnoses Chest pain at rest Mattie Hayden Procedures NM Myocardial Perfusion Study Single - Stress Only NM Myocardial Perfusion Multiple SPECT MD [address] [place] [address] Reason Comments Transition Of Care Pt reports [...] 03/16/2019 4:18 PM EDTAssociated Order(s): EEG (STANDARD) [facility] EEG Report Reason for EEG: Seizures. [...] IP CONSULT TO NEUROLOGY Neurology Inpatient Consult [facility] 03/16/2019 Patient: Reema Motta Date of : 1975 (43 y.o.) Referring Provider: Refer to consult order in electronic medical record PCP: Nedra Brewer CNP ASSESSMENT: 43 y.o. female presented to [facility] on 03/16/2019 with seizures. PLAN: Seizure (HCC) [...] toxicity. She follows with Dr. Gillette from [place]. She was also using Keppra 750 mg [...] to 1000 mg twice a day. 3. [place] seizure precautions. 4. Monitor frequency alcohol seizures. [...] Portions of this chart was created using 1EQ voice recognition software. Occasional wrong-word or sound-like [...] This occurred after she was discharged from [facility] where her Depakote was discontinued because of [...] Medical History: Diagnosis Date ? Acquired thrombocytopenia ([facility]) [facility]/Darren Shaikh ? Acute kidney injury (HCC) 05/22/2018 [facility]/Jonatan Chiu DO ? Anxiety ? Calcaneal spur of right foot 2017 Documented on x-ray ? Chronic kidney disease, stage III (moderate) ([facility]) 2000 ? Congestive heart failure (CHF) ([facility]) [facility]/Darren Shaikh ? Depression ? Epilepsy ([facility]) 08/06/2011 [facility]- Dr. Chopra ? Epilepsy ([facility]) 1993 ? Facet degeneration of lumbar region 10/14/2018 [facility]/Jono ALEXIS, Saulius Mild facet degenerative changes seen in the lower lumbar spine ? Fatty liver [facility]/Joe Mendeita MD Mild fibrofatty changes of the liver ? Fluid collection (edema) in the arms, legs, hands and feet 03/09/2018 Dr valentina Chopra ? Gastritis determined by endoscopy 12/29/2016 Dr. GuerreroMolene-Bfmkjfctd-njuxjtmgdotav nonbleeding with biopsy ? Hepatic steatosis [facility]/Heidy Jara MD Mild ? Hiatal hernia 12/29/[address] Lobo grade 4 ? Hypercholesterolemia [facility]/Jonatan Chiu DO ? Hypertension 2000 2000-present ? Insomnia [facility]/Darren Shaikh ? Kidney stone [facility]/Darren Shaikh ? Lung nodule 12/15/2017 0.5 cm pleural based nodule in right middle lobe. Mild linear atelectasis ? Mitral valve prolapse [facility]/Darren Shaikh ? Motor seizure ([facility]) 03/16/2019 INFO GAINED FROM: /[facility] ED VISIT --- LOZANO DO,CAREN ? Rectus diastasis [facility]/Heidy Jara MD Present with small wide necked perumbical ventral containing fat. ? Second degree burn of foot 04/23/2018 Right Foot - [facility] ? Sleep apnea ? Stroke ([facility]) 2000 mild ? Tremor Past Surgical History: Procedure Laterality Date ? Conner pH capsule placement 02/01/2017 Dr. Lobo ? BREAST REDUCTION 2000 bilateral ? [facility]-nonperforating gastritis ? ESOPHAGEAL [...] file Gets together: Not on file Attends voodoo service: Not on file Active member of [...] 4' 8 Wt 68.5 kg (151 lb) KeO406% BMI 33.85 kg/m? Patient is awake and [...]
== END 2020-03-05 21:08 | disposition home or self-care (01) ==
PROVIDERS: Emergency Provider Emergency Medicine
DX: S09.90XA Unspecified injury of head, initial encounter (principal); W01.198A Fall on same level from slipping, tripping and stumbling with subsequent striking against other object, initial encounter; Y92.099 Unspecified place in other non-institutional residence as the place of occurrence of the external cause; S41.012A Laceration without foreign body of left shoulder, initial encounter
CPT/HCPCS: 12001; 70450; 72125; 73030; 90471; 90715; 99284

== ENCOUNTER 2020-03-23 22:31 | Emergency (ER) | payer MEDICAID, SELFPAY ==
[2020-03-23 22:34] VITALS: BP 132/92; PULSE 67; RESP 16; TEMP 36.8; O2SAT 96; BMI 37.5
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
[2020-03-24] MEDS: Ibuprofen 200 MG Tablet 400 MG PO (00:24)
[2020-03-24 01:00] VITALS: BP 130/88; PULSE 69; RESP 18; O2SAT 95
--- NOTE | 2020-03-24 01:03 | ED.RN ---
report called to [facility] and spoke with conceptor ASSOCIATE PROFESSOR OF LAW. Updated on pt status and plan to send pt back via squad
--- OUTSIDE RECORDS SUMMARY | 2020-08-04 09:14 | XMS RPT_ITS | CCD ---
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 assisted living facility ([facility]) Accompanied By: self Language: Spoken Language Preferred: Slovak Reading Language Preferre d: Slovak Instrument Mechanics Supervisor Requested: no translator interpreter was requested MDRO: History of MDRO: no [...] Last Updated: 07-Sep-2019 19:27 by Maria Elena Kramer) risk screen - adult emergency on 2019-09-07 Risk Screen - Preferred Language: Normal 2018 [facility] Preferred Language: [facility] Preferred Language for Discussing Health Care (patient/desig nee)Slovak ([id number]) Advanced Directives: Advance Directive/DNRno Advance Directive Information [...] Learning Preferencesverbal instruction Cultural Considerationsnone Developmental Considerationsnone Sikhism Considerationsnone Learning Assessment (Other Learner): Learning Assessment (Other Learner): Other learner availableno Pressure Injury/TB/Substance: Pressure Injury: Pressure Injury Present on Admissionno Do you have a coughno 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, 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, Alcohol, Street Drugs Admission Risk Screen: Significant IndicatorsComplete CAGE: CAGE: Is this an injured patient at a Trauma Center ([facility]/[place] rma/[place]): no Electronic Signatures: Maria Elena Kramer (RN) (Signed 07-Sep-2019 19:29) Authored: Preferred Language, Advanced Directives, Family Vi olence Adult, Learning Assessment (Patient), Learning Assessment (Ot her Learner), Pressure Injury/TB/Substance, CAGE Last Updated: 07-Sep-2019 19:29 by Maria Elena Kramer (RN) red cell morphology on 2019-09-07 RBC morphology finding Nom NORMAL Normal [facility] ([facility]) (55796) Comment: Performed By: #### HH #### [facility] [address] [place] [address] provider note - ed v2 on 2019-09-07 Provider Note - Provider Note - ED v2: Normal 1 11-07-2018 [facility] ED v2 Chart Review: [facility] ED NOTES (75823) ED NOTES: The patient was sent from the snf because of abdomi nal pain. 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 Data Referenced From Triage - ED 07-Sep-2019 19:17 manual differential on 2019-09-07 % EOSINOPHIL 0.0 0.0 - 6.0 % Normal 09-07-2019 [facility] (94406) Comment: Performed By: #### HH #### [address] [address] % SEG NEUTROPHIL 65.0 40.0 - 80.0 % Normal 09-07-2019 [facility] (90209) Comment: Result Comment: Percent diff erential counts (%) should be interpreted in the context of the absolute cell counts (cells/L). Performed By: #### HH #### [address] [address] ANC 3.90 1.20 - 7.70 x10E9/L Normal 09-07-2019 [facility] (07052) Comment: Performed By: #### HH #### [address] [address] BAND NEUTROPHIL 0.06 0.00 - 0.70 x10E9/L Normal 09-07-2019 [facility] (08720) Comment: Performed By: #### HH #### [address] [address] BASOPHIL 0.00 0.00 - 0.10 x10E9/L Normal 09-07-2019 [facility] (16670) Comment: Performed By: #### HH #### [address] [address] EOSINOPHIL 0.00 0.00 - 0.70 x10E9/L Normal 09-07-2019 [facility] (48506) Comment: Performed By: #### HH #### [address] [address] LYMPHOCYTE 1.59 1.20 - 4.80 x10E9/L Normal 09-07-2019 [facility] (24782) Comment: Performed By: #### HH #### [address] [address] MONOCYTE 0.41 0.10 - 1.00 x10E9/L Normal 09-07-2019 [facility] (14447) Comment: Performed By: #### HH #### [address] [address] SEG NEUTROPHIL 3.84 1.20 - 7.00 x10E9/L Normal 09-07-2019 [facility] (59120) Comment: Performed By: #### HH #### [address] [address] Band form neutrophils/100 1.0 0.0 - 5.0 % Normal 08-19 [facility] 350 WBC (Bld) [place] ([address]) Comment: Ordering Provider: NICKO TORRES 04672 Performed By: #### HH #### [address] [address] Basophils/100 WBC (Bld) 0.0 0.0 - 2.0 % Normal 2018 [facility] 350 [place] (13943) Comment: Ordering Provider: NICKO TORRES 90363 Performed By: #### HH #### [address] [address] Lymphocytes/100 WBC (Bld) 27.0 % Normal 08-19 [facility] 350 [place] ([address]) Comment: Reference Range: 13.0 - 44.0 Ordering Provider: NICKO TORRES 98564 Performed By: #### HH #### [address] [address] Monocytes/100 WBC (Bld) 7.0 2.0 - 10.0 % Normal 09-07 [facility] 350 [place] ([address]218) Comment: Ordering Provider: NICKO TORRES 77119 Performed By: #### HH #### [address] [address] lipase, serum on 05-09-21 Lipase [Catalytic 40 9 - 82 U/L Normal 09-07-2019 [facility] 350 activity/Vol] [facility] est (30349) Comment: Venipuncture immediately aft er or during the administration of Metamizole may lead to falsely low resu lts. Testing should be performed immediately prior to Metamizole dosing. Q-hgnbap-f-benzoquinone imine (metabolite of Acetaminophen) will generate erroneously low results in samples for patients that have taken toxic doses of acetaminophen. Ordering Provider: NICKO TORRES 88115 Result Comment: Venipuncture immediately after or during the administration of Metamizole may lead to falsely low results. Testing should be performed immediately prior to Metamizole dosing. A-naezlg-c-benzoquinone imin e (metabolite of Acetaminophen) will generate erroneously lo w results in samples for patients that have taken toxic doses of acetaminophen. Performed By: #### HH #### [address] [address] comprehensive panel on 2019-09-07 Albumin [Mass/Vol] 4.1 3.4 - 5.0 g/dL Normal 09-07-2019 [facility] (84321) Comment: Performed By: #### HH #### [address] [address] ALT [Catalytic activity/Vol] 19 7 - 45 U/L Normal 1 11-07-2018 [facility] (00 000) Comment: Result Comment: Patients graciela ated with Sulfasalazine may generate falsely decreased results fo r ALT. Performed By: #### HH #### [address] [address] AST [Catalytic activity/Vol] 21 9 - 39 U/L Normal 1 11-07-2018 [facility] (00 000) Comment: Performed By: #### HH #### [address] [address] GFR- AM. 46 >60 mL/min/1.73m2 Abnormal 09-07-2019 [facility] (65126) Comment: Result Comment: CALCULATIONS OF ESTIMATED GFR ARE PERFORMED USING THE MDRD STUDY EQUATIO N FOR THE IDMS-TRACEABLE CREATININE ME THODS. CLIN CHEM 2007;53:766-72 Performed By: #### HH #### [address] [address] GFR-NON AM. 38 >60 mL/min/1.73m2 Abnormal 2018 [facility] (00 000) Comment: Performed By: #### HH #### [address] [address] HCO3 (Bld) [Moles/Vol] 32 21 - 32 mmol/L Normal 019 [facility] (84781) Comment: Performed By: #### HH #### [address] [address] ALP [Catalytic 55 33 - 110 U/L Normal 09-07-2019 [facility] 350 activity/Vol] [facility] [employer] est (99055) Comment: Ordering Provider: NICKO TORRES 95059 Performed By: #### HH #### [address] [address] Anion gap [Moles/Vol] 13 10 - 20 mmol/L Normal 09-07-20 19 [facility] 350 [place] ([address]18) Comment: Ordering Provider: NICKO TORRES 88014 Performed By: #### HH #### [address] [address] Bilirubin [Mass/Vol] 0.3 0.0 - 1.2 mg/dL Normal 9 [facility] [address] [place] ([address]453) Comment: Ordering Provider: NICKO TORRES 12640 Performed By: #### HH #### [address] [address] Calcium [Mass/Vol] 9.7 8.6 - 10.3 mg/dL Normal 09-07-2019 [facility] 350 [place] ([address]82) Comment: Ordering Provider: NICKO TORRES 88597 Performed By: #### HH #### [address] [address] Chloride 97 98 - 107 mmol/L below low 09-07-2019 [facility] 350 [Moles/Vol] threshold [place] (17921) Comment: Ordering Provider: NICKO TORRES 24727 Performed By: #### HH #### [address] [address] Creatinine 1.47 mg/dL above high 09-07-2019 [facility] 350 [Mass/Vol] threshold [place] (59994) Comment: Reference Range: 0.50 - 1.05 Ordering Provider: NICKO TORRES 15699 Performed By: #### HH #### [address] [address] Glucose [Mass/Vol] 94 74 - 99 mg/dL Normal 09-07-2019 [facility] [address] [place] (97425) Comment: Ordering Provider: NICKO TORRES 23112 Performed By: #### HH #### [address] [address] Potassium 4.4 3.5 - 5.3 mmol/L Normal 09-07-2019 [facility] 350 [Moles/Vol] [place] (14867) Comment: Ordering Provider: NICKO TORRES 61447 Performed By: #### HH #### [address] [address] Protein 6.3 6.4 - 8.2 g/dL below low 09-07-2019 [facility] 350 [Mass/Vol] threshold [place] (37446) Comment: Ordering Provider: NICKO TORRES 30616 Performed By: #### HH #### [address] [address] Sodium [Moles/Vol] 138 136 - 145 mmol/L Normal 09-07-2019 [facility] 350 [place] (79434) Comment: Ordering Provider: NICKO TORRES 32316 Performed By: #### HH #### [address] [address] Urea nitrogen 20 6 - 23 mg/dL Normal 09-07-2019 [facility] 350 [Mass/Vol] [place] ([address]13) Comment: Ordering Provider: NICKO Sanchez Performed By: #### HH #### [address] [address] complete blood count + differential on 2019-09-07 Erythrocyte 15.2 See Below % above high 09-07-2019 [facility] 350 distribution width threshold [place] ([address]) (RBC) [Ratio] Comment: Reference Range: 11.5 - 14.5 Ordering Provider: NICKO Sanchez Hematocrit (Bld) [Volume 38.5 See Below % 09-07 [facility] [place] fraction] (68510) Comment: Reference Range: 36.0 - 46.0 Ordering Provider: NICKO Sanchez Hemoglobin (Bld) 13.1 See Below g/dL 09-07-2019 [facility] [Mass/Vol] [place] (49994) Comment: Reference Range: 12.0 - 16.0 Ordering Provider: NICKO Sanchez MCHC (RBC) [Mass/Vol] 34.0 See Below g/dL 09-07-20 19 [facility] [place] (62382) Comment: Reference Range: 32.0 - 36.0 Ordering Provider: NICKO Sanchez MCV (RBC) [Entitic vol] 91 80 - 100 fL 2018 [facility] 350 [place] (67659) Comment: Ordering Provider: NICKO Sanchez Platelets (Bld) 92 150 - 450 {x10E9/L} below low 09-07-2019 [facility] 350 [#/Vol] threshold [place] (03493) Comment: Ordering Provider: NICKO TORRES [address] RBC (Bld) [#/Vol] 4.25 See Below {x10E12/L} 09-07-2019 [facility] 350 [place] (51482) Comment: Reference Range: 4.00 - 5.20 Ordering Provider: NICKO TORRES [address] WBC (Bld) [#/Vol] 5.9 4.4 - 11.3 {x10E9/L} 09-07-2019 [facility] [address] [place] (45835) Comment: Ordering Provider: NICKO Sanchez SEE MANUAL DIFF 09-07-2019 [facility] [address] [place] (53332) Comment: Ordering Provider: NICKO Guadarrama03 cbc and differential on 2019-09-07 DIFFERENTIAL SEE MANUAL DIFF Normal 09-07-2019 [facility] (22537) Comment: Performed By: #### HH #### [address] [address] Erythrocyte distribution 15.2 11.5 - 14.5 % High [facility] width (RBC) [Ratio] Health (76415) Comment: Performed By: #### HH #### [address] [address] Hematocrit (Bld) [Volume 38.5 36.0 - 46.0 % Normal [facility] fraction] [facility] (00 000) Comment: Performed By: #### HH #### [address] [address] Hemoglobin (Bld) 13.1 12.0 - 16.0 g/dL Normal 09-07-2019 [facility] [Mass/Vol] [facility] (0 0000) Comment: Performed By: #### HH #### [address] [address] MCHC (RBC) [Mass/Vol] 34.0 32.0 - 36.0 g/dL Normal 2018 [facility] (00 000) Comment: Performed By: #### HH #### [address] [address] MCV (RBC) [Entitic vol] 91 80 - 100 fL Normal 2018 [facility] (45577) Comment: Performed By: #### HH #### [address] [address] Platelets (Bld) [#/Vol] 92 150 - 450 x10E9/L Low 2018 [facility] (87240) Comment: Performed By: #### HH #### [address] [address] RBC (Bld) [#/Vol] 4.25 4.00 - 5.20 x10E12/L Normal 09-07-2019 [facility] (00 000) Comment: Performed By: #### HH #### [address] [address] WBC (Bld) [#/Vol] 5.9 4.4 - 11.3 x10E9/L Normal 09-07-2019 [facility] (40973) Comment: Performed By: #### HH #### [address] [address] No panel information on 2019-09-07 Albumin BCP dye 4.1 3.4 - 5.0 g/dL 09-07-2019 [facility] 350 [Mass/Vol] [place] ([address]12) Comment: Ordering Provider: NICKO TORRES 275[address] ALT With P-5'-P [Catalytic 19 7 - 45 U/L [facility] 350 [place] activity/Vol] (40002 ) Comment: Patients treated with Sulfas alazine may generate falsely decreased results for ALT. Ordering Provider: NICKO TORRES 19962 AST With P-5'-P [Catalytic 21 9 - 39 U/L [facility] 350 [place] activity/Vol] (17519 ) Comment: Ordering Provider: NICKO TORRES 03519 Basophils (Bld) 0.00 See Below {x10E9/L} 09-07-2019 [facility] 350 [#/Vol] [place] (50871) Comment: Reference Range: 0.00 - 0.10 Ordering Provider: NICKO TORRES [address]238 CO2 [Moles/Vol] 32 21 - 32 mmol/L 09-07-2019 [facility] ([address]) Comment: Ordering Provider: NICKO Sanchez Eosinophils (Bld) 0.00 See Below {x10E9/L} 09-07-2019 [facility] 350 [#/Vol] [place] ([facility]) Comment: Reference Range: 0.00 - 0.70 Ordering Provider: NICKO Sanchez Eosinophils/100 WBC (Bld) 0.0 0.0 - 6.0 % 08-19 [facility] ([facility]) Comment: Ordering Provider: NICKO Sanchez Lymphocytes (Bld) 1.59 See Below {x10E9/L} 09-07-2019 [place] [address] [#/Vol] [place] ([facility]) Comment: Reference Range: 1.20 - 4.80 Ordering Provider: NICKO Sanchez Monocytes (Bld) 0.41 See Below {x10E9/L} 09-07-2019 [place] [address] [#/Vol] [place] (83861) Comment: Reference Range: 0.10 - 1.00 Ordering Provider: NICKO Sanchez Segmented neutrophils/100 65.0 See Below % 08-19 [place] [address] WBC (Bld) [place] (23984) Comment: Reference Range: 40.0 - 80.0 Percent differential counts (%) should be interpreted in the context o f the absolute cell counts (cells/L). Ordering Provider: NICKO TORRES 41758 3.84 See Below {x10E9/L} 09-07-2019 [facility] ([facility]) Comment: Reference Range: 1.20 - 7.00 Ordering Provider: NICKO Sanchez 38 >60 {mL/min/1.73m2} Abnormal 09-07-2019 [facility] 350 [place] ([address]60) Comment: Ordering Provider: NICKO Sanchez 0.06 See Below {x10E9/L} 09-07-2019 [facility] 350 [place] (37290) Comment: Reference Range: 0.00 - 0.70 Ordering Provider: NICKO Sanchez NORMAL 09-07-2019 [place] [address] [place] ([address]842) Comment: Ordering Provider: NICKO Sanchez 3.90 See Below {x10E9/L} 09-07-2019 [place] [address] [place] (75182) Comment: Reference Range: 1.20 - 7.70 Ordering Provider: NICKO Sanchez 46 >60 {mL/min/1.73m2} Abnormal 09-07-2019 [facility] 350 [place] (56353) Comment: CALCULATIONS OF ESTIMATED GF R ARE PERFORMED USING THE MDRD STUDY EQUATION FOR THE IDMS-TRACEABLE CREAT ININE METHODS. CLIN CHEM 2007;53:766-72 Ordering Provider: NICKO Sanchez knee cmplt, 4 or more views on 2019-08-21 KNEE CMPLT, 4 OR Normal [address] [place] [address] MORE VIEWS Patient [facility]: [facility] STUDY: KNEE; COMPLT, 4 OR MORE VIEWS;Left; 08/20/2019 10:00 pm INDICATION: fall. COMPARISON: None. ACCESSION NUMBER(S): [id number] ORDERING CLINICIAN: TENISHA LANE FINDINGS: Four views left knee. No acute fracture or malalignment. Bones appear normally min eralized. No significant degenerative changes. No knee effusion. Soft tissues are within normal limits. IMPRESSION: Normal left knee radiography. Electronically signed by: HEIDY JARA MD No panel information on 2019-08-21 XR Knee 4 Interpreted by: HEIDY [place] 2018 [facility] 350 evan JARA08/20/19 [place] ([address]) 22:23MRN: [id number] Name: [facility] STUDY:KNEE; COMPLT, 4 OR MORE VIEWS;Left; 08/20/2019 10:00 pm INDICATION:fall. COMPARISON:None. ORDERING CLINICIAN:TENISHA LANE FINDINGS:Four views left knee. No acute fracture or malalignment. Bones appear normally mineralized.No significant degenerative changes. No knee effusion. Soft tissuesare within normal limits. IMPRESSION:Normal left knee radiography. Electronically signed by: HEIDY JARA 08/20/19 22:23 Comment: Ordering Provider: TENISHA Mckoy [address] triage - ed on 2018 Triage - ED Quick Triage: Normal 08-20-2019 [facility] Are You no H ealth (23751) Have You Given In The Last 6 [...] BMI (kg/m2): 39.266 Calculated BSA (m2) 1.77 [place] Coma Scale: Best Eye Response: (E4) spontaneous [...] assisted living facility Accompanied By: self and draw frame runner Language: Spoken Language Preferred: Slovak Reading Language Preferre d: Slovak PRIMARY ASSESSMENT ABCD Normal Findings: airway open and patent PAST MEDICAL HISTORY Immunization History: Last Known Tetanus Immunization: Less than 5 years TRAVEL HISTORY Travel Exposure History: NO travel to [facility] in the past 30 days Past Medical History: Past Medical History Reviewedyes hypertension: Past Medical History, Active major depressive disorder: Past Medical History, Active anxiety: Past Medical History, Active epileptic seizure: Past Medical History, Active Electronic Signatures: Megan Linton) (Signed 20-Aug-2019 21:11) Authored: Triage, Past Medical History Last Updated: 20-Aug-2019 21:11 by Megan Linton) risk screen - adult emergency on 2019-08-20 Risk Screen - Preferred Language: Normal 2018 [facility] Adult Emergency Preferred Language: [facility] Preferred Language for Discussing Health Care (patient/desjose rodriguez)Slovak (01583) Advanced Directives: Advance Directive/DNRno Family Violence Adult: Abuse Screen: Are you or have you been threatened or abused physically, em otionally, or sexually by anyoneno Learning Assessment (Patient): Learning Assessment (Patient): Patient is Able to be Assessed for Learningyes Factors Influencing Readiness to Learnmotivation to learn Factors that Impact Ability to Learnnone Devices/Methods Used to Communicatenone Learning Preferencesaudio Cultural Considerationsnone Developmental Considerationsnone Sikhism Considerationsnone Learning Assessment (Other Learner): Learning Assessment (Other Learner): Other learner availableno Pressure Injury/TB/Substance: Pressure Injury: Pressure Injury Present on Admissionno Do you have a coughno 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, 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, Alcohol, Street Drugs Admission Risk Screen: Significant IndicatorsComplete CAGE: CAGE: Is this an injured patient at a Trauma Center ([facility]/[place] [place]): no Electronic Signatures: Megan Linton (RN) (Signed 20-Aug-2019 21:45) Authored: Preferred Language, Advanced Directives, Family Vi olence Adult, Learning Assessment (Patient), Learning Assessment (Ot her Learner), Pressure Injury/TB/Substance, CAGE Last Updated: 20-Aug-2019 21:45 by Megan Linton (RN) provider note - ed v2 on 2019-08-20 Provider Note - Provider Note - ED v2: Normal 1 10-20-2018 [facility] ED v2 Chart Review: [facility] ED NOTES ([id number]) ED NOTES: HPI: Patient is a resident of a [facility] sn[facility] and just prior to arrival she had [...] and oriented x4 , GCS 15 , courtroom clerk II-XII grossly intact. Sensation and motor function [...] Description:epileptic seizure Description:anxiety Description:major depressive disorder Description:hypertension RIBBON WEAVER: Is : no(1) Is : no(1) RESULTS/VITAL [...] SIGNS: T PRBP SpO2O2(LPM) %FiO2 Method 20-Aug-2019 21:02:[id number]/75 95 room air, no respira tory support [...] no acute distress. Patient discharged back to snf faci lity. The CAT scan of your [...] patient: no Electronic Signatures: Tenisha Lane I (FITTING SUPERVISOR-CASING WORKER) (Signed 20-Aug-2019 22:33) Authored: Provider Note - ED v2 Last Updated: 20-Aug-2019 22:[address] I (FITTING SUPERVISOR-CASING WORKER) References: 1. Data Referenced From Triage - ED 20-Aug-2019 21:02 ct head wo contrast on 2019-08-20 CT HEAD WO Normal 08-20-2019 [facility] CONTRAST [facility]: [facility] ([id number] STUDY: CT HEAD WO CONTRAST; CT C-SPINE WO CONTRAST;; 08/20/2019 9:58 pm INDICATION: fall. COMPARISON: 03/18/[address] cervical spine from 03/16/2019. ACCESSION NUMBER(S): [id number]; [id number] ORDERING CLINICIAN: TENISHA LANE TECHNIQUE: Noncontrast CT [...] 08-20-2019 [facility] [employer] ([id number]) STUDY: CT HEAD WO CONTRAST; CT C-SPINE WO CONTRAST;; 08/20/2019 9:58 pm INDICATION: fall. COMPARISON: 03/18/[address] cervical spine from 03/16/2019. ACCESSION NUMBER(S): [id number]; [id number] ORDERING CLINICIAN: TENISHA LANE TECHNIQUE: Noncontrast CT [...] Head Interpreted by: HEIDY Del Rio [address]08/20/19 [place] ([id number]) contrast 22:22MRN: [id number] Name: REEMA MOTTA STUDY:CT HEAD WO CONTRAST; CT C-SPINE WO CONTRAST;; 08/20/2019 9:58 pm INDICATION:fall. COMPARISON:03/18/[address] cervical spine from 03/16/2019. [id number] ORDERING CLINICIAN:TENISHA LANE TECHNIQUE:Noncontrast CT exams of [...] 08/20/19 22:22 Comment: Ordering Provider: TENISHA Mckoy [id number] Interpreted by: HEIDY Del Rio 08-20-[address]08/20/19 22:22MRN: Jaspal [id number]) [id number] Name: REEMA MOTTA STUDY:CT HEAD WO CONTRAST; CT C-SPINE WO CONTRAST;; 08/20/2019 9:58 pm INDICATION:fall. COMPARISON:03/18/[address] cervical spine from 03/16/2019. 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 2019-08-07 RIBBON WEAVER - Chief Complaint Normal 08-07-2019 [employer] Office Visit ([id number]) PT HERE TODAY FOR US RESULTS History [...] MG TOT AL) BY MOUTH DAILY; Therapy: [id number] to Recorded Rx By: MENDY; Dispense: 30 D ays ; #:30; Refill: 0; SHARLENE = N; Record; Last Updated By: Minerva Hauser; 08/07/2019 10:53:56 AM Keppra 750 MG Oral Tablet; TAKE 1 TABLET BY MOUTH TWICE A DA Y; Therapy: [id number] to Recorded Rx By: KEYSHA; Dispense: 30 [...] MOUTH FOUR TIME S A DAY; Therapy: 33Zhe2938 to Recorded Rx By: KEYSHA; Dispense: 30 [...] MOUTH EVERY DAY AT SUPPER TIME; Therapy: 50Mhn1550 to Recorded Rx By: KEYSHA; Dispense: 30 D ays ; #:30; Refill: 0; SHARLENE = N; Record; Last Updated By: Minerva Hauser; 08/07/2019 10:53:56 AM Potassium Chloride ER 10 MEQ Oral Capsule Extend ed Release; TAKE 1 CAPSULE BY MOUTH TWICE A DAY; Therapy: 26Fos0319 to Recorded Rx By: MENDY; Dispense: 30 D ays ; #:60; Refill: 0; SHARLENE = N; Record; Last Updated By: Minerva Hauser; 08/07/2019 10:53:56 AM Vitals Vital Signs Recorded: 07Aug2019 11:01AM Ejptmfel737 Rxpdyehbo02 Height4 ft 7.12 in Veshad095 lb 4.83 oz BMI Iwmudergmx42.11 BSA Calculated1.65 Physical Exam General: None acute distress Eye: Intraocular movements are intact HEENT: Normocephalic Respiratory: Respirations are nonlabored Gastrointestinal: Nondistended Musculoskeletal: Normal range of motion Neurologic: Alert and orientedx3 Psychiatric: Cooperative appropriate mood and affect. Results/Data Ultrasound Pelvis Transabdom inal With Lajnnriqdvcj00Ahz0882 10:44Anel Livingston Test NameResultFlagReference Ultrasound Pelvis Transabdominal With Transvaginal(Report) Interpreted by: TIFFANIE PARK 08/03/19 22:49 Patient Name: REEMA MOTTA STUDY: US PELVIS TRANSABDOMINAL WITH TRANSVAGINAL; 08/03/2019 10:44 am INDICATION: PELVIC PAIN. COMPAR BRIGIDA: None. ACCESSION NUMBER (S): [id number] ORDERING CLINICIAN: ANEL MORGAN TECHNIQUE: Transabdominal and [...] by : Anel Morgan DO; Aug 07 201 9 12:58PM EST (Author) hgb + hct on 2018-10 0-18 Hematocrit (Bld) [Volume 36.5 36.0 - 46.0 % Normal [facility]] Health (00 000) Comment: Performed By: #### HH #### [address] [address] Hemoglobin (Bld) 12.3 12.0 - 16.0 g/dL Normal 08-04-2019 [facility] [Mass/Vol] Health (0 0000) Comment: Performed By: #### HH #### [address] [address] us pelvis transabdominal with transvagin al on 2019-08-03 US PELVIS Normal 08-03-2019 [facility] TRANSABDOMINAL WITH [facility]: [facility] TRANSVAGINAL ([id number]) STUDY: US PELVIS TRANSABDOMINAL WITH TRANSVAGINAL; 08/03/2019 10:44 am INDICATION: PELVIC PAIN. COMPARISON: None. ACCESSION NUMBER(S): [id number] ORDERING CLINICIAN: ANEL MORGAN TECHNIQUE: Transabdominal and [...] 2019-08-03 Interpreted by: TIFFANIE NAVARRO Normal 08-03-2019 [address] 22:49MRN: Jaspal ([id number]) [id number] Name: REEMA MOTTA STUDY:US PELVIS TRANSABDOMINAL WITH TRANSVAGINAL; 08/03/2019 10:44 [...] PCR. Not Detected Not Detected Normal 2018 [facility] (77469) Comment: Result Comment: Xpert CT/NG Assay performance has not been evaluated in patients less than 14 years of age. Performed By: #### [id number] #### MARCUS RemHemo [facility] [place] [address] Gonorrhoeae by PCR Not Detected Not Detected Normal 07-19 [facility] (76561) Comment: Result Comment: Xpert CT/NG Assay performance has not been evaluated in patients less than 14 years of age. Performed By: #### [id number] #### MARCUS RemHemo [facility] [place] [address] ct abdomen/pelvis w/ contrast on 2019-07-05 CT Abdomen/Pelvis w/ Exam Date/Time: Normal Islam Contrast 07/05/2019 13:33 EDT [facility] Reason for Exam: s tem ([id number]) ABDOMINAL PAIN AND TENDERNESS Report STUDY: CT Abdomen/Pelvis w/ Contrast; 07/05/2019 1:33 pm INDICATION: ABDOMINAL PAIN AND TENDERNESS. COMPARISON: 12/02/2018 ACCESSION NUMBER(S): [id number] ORDERING CLINICIAN: Holden Velasco TECHNIQUE: Contiguous axial [...] Signature): 07/05/2019 3:48 pm Signed by: Andrey Sunshnie MD Technologist: NABEEL, magnesium on 03-25 Magnesium [Mass/Vol] 2.0 1.6-2.4 mg/dL Normal 9 [facility] () Comment: Performed By: #### [id number] #### MARCUS RemHemo [address] [place] [address] egfr on 2019-03-25 GFR/1.73 sq M predicted >60 mL/min/{1.73_m2} Normal 03-25-2019 [facility] among non-blacks [facility] (46361) (S/P/Bld) [Vol rate/Area] Comment: Order Comment: Order Added b y Discern Expert. Performed By: #### [id number] #### MARCUS RemHemo [address] [place] [id number] GFR/1.73 sq M predicted 50 mL/min/1.73 m2 Normal 0 03-25-2019 [facility] among non-blacks [facility] (61047) (S/P/Bld) [Vol rate/Area] Comment: Order Comment: Order Added b y Discern Expert. Performed By: #### [id number] #### MARCUS RemHemo [address] [place] [address] bmp on 2019-03-25 Anion gap [Moles/Vol] 10 10-20 mEq/L Normal 03-25-20 19 [facility] () Comment: Performed By: #### [id number] #### MARCUS RemHemo [address] [place] [address] Calcium [Mass/Vol] 8.7 8.6-10.3 mg/dL Normal 03-25-2019 [facility] () Comment: Performed By: #### [id number] #### MARCUS RemHemo [address] [place] [address] Chloride [Moles/Vol] 108 98-107 mEq/L High 9 [facility] () Comment: Performed By: #### [id number] #### MARCUS RemHemo [address] [place] [address] CO2 [Moles/Vol] 25.0 21.0-32.0 mEq/L Normal 03-25-2019 [facility] () Comment: Performed By: #### [id number] #### MARCUS WilcoxHemo [address] [place] [address] Creatinine [Mass/Vol] 1.2 0.5-1.1 mg/dL High 03-25-20 [facility] () Comment: Performed By: #### [id number] #### MARCUS RemHemo [facility] [place] [address] Glucose [Mass/Vol] 97 70-99 mg/dL Normal 03-25-2019 [facility] (96939) Comment: Performed By: #### [id number] #### MARCUS RemHemo [facility] [place] [address] Potassium [Moles/Vol] 4.5 3.5-5.3 mEq/L Normal 03-25-20 [facility] () Comment: Performed By: #### [id number] #### MARCUS RemHemo [facility] [place] [address] Sodium [Moles/Vol] 138 136-145 mEq/L Normal 03-25-2019 [facility] () Comment: Performed By: #### [id number] #### MARCUS RemHemo [facility] [place] [address] Urea nitrogen [Mass/Vol] 14 6-23 mg/dL Normal 03-25 [facility] ( 000) Comment: Performed By: #### [id number] #### MARCUS RemHemo [facility] [place] [address] Urea nitrogen/Creatinine 11.7 5.4-30.0 ratio Normal 03-25 [facility] [Mass ratio] [facility] (47514) Comment: Performed By: #### [id number] #### MRACUS RemHemo [facility] [place] [address] magnesium on 6-07 Magnesium [Mass/Vol] 2.1 1.6-2.4 mg/dL Normal 9 [facility] (00 000) Comment: Performed By: #### [id number] #### MARCUS WilcoxHemo [address] [place] [address] egfr on 2019-03-24 GFR/1.73 sq M predicted 55 mL/min/1.73 m2 Normal 0 03-24-2019 [facility] among non-blacks [facility] ([address]319) (S/P/Bld) [Vol rate/Area] Comment: Order Comment: Order Added b y Discern Expert. Performed By: #### [id number] #### MARCUS JeriHemo [facility] [place] [address] GFR/1.73 sq M predicted >60 mL/min/{1.73_m2} Normal 03-24-2019 [facility] among non-blacks [facility] ([address]666) (S/P/Bld) [Vol rate/Area] Comment: Order Comment: Order Added b y Discern Expert. Performed By: #### [id number] #### MARCUS JeriHemo [facility] [place] [address] cbc w/ auto diff on 2019-03-24 Erythrocyte distribution 13.4 11.5-14.5 % Normal 03-24 [facility] width (RBC) [Ratio] Health System (78423) Comment: Performed By: #### [id number] #### MARCUS JeriHemo [facility] [place] [address] Hematocrit (Bld) [Volume 36.3 36.0-48.0 % Normal 03-24 [facility] fraction] Health Sys tem (38799) Comment: Performed By: #### [id number] #### MARCUS JeriHemo [address] [place] [address] Hemoglobin (Bld) 12.3 12.0-16.0 G/DL Normal 03-24-2019 [facility] [Mass/Vol] Health Sy stem (25094) Comment: Performed By: #### [id number] #### MARCUS JeriHemo [address] [place] [address] MCH (RBC) [Entitic mass] 30.4 27.0-31.0 pg Normal 03-24 [facility] (00 000) Comment: Performed By: #### [id number] #### MARCUS WilcoxHemo [facility] [place] [address] MCHC (RBC) [Mass/Vol] 33.7 33.0-37.0 G/DL Normal 03-24-20 [facility] (00 ) Comment: Performed By: #### [id number] #### MARCUS WilcoxHemo [facility] [place] [address] MCV (RBC) [Entitic vol] 90.1 78.0-100.0 fL Normal 03-24 [facility] (28588) Comment: Performed By: #### [id number] #### MARCUS Kenyono [facility] [place] [address] Platelet mean volume 8.3 7.4-11.0 fL Normal [facility] (Bld) [Entitic vol] System (22296) Comment: Performed By: #### [id number] #### MARCUS JeriHemo [facility] [place] [address] Platelets (Bld) [#/Vol] 101 130-400 E3/mcL Low 2018 [facility] () Comment: Performed By: #### [id number] #### MARCUS Kenyono [facility] [place] [address] RBC (Bld) [#/Vol] 4.04 3.90-5.40 E6/mcL Normal 03-24-2019 [facility] () Comment: Performed By: #### [id number] #### MARCUS WilcoxHemo [facility] [place] [address] WBC (Bld) [#/Vol] 3.9 3.6-11.0 E3/mcL Normal 03-24-2019 [facility] () Comment: Performed By: #### [id number] #### MARCUS WilcoxHemo [facility] [place] [address] bmp on 2019-03-24 Anion gap [Moles/Vol] 9 10-20 mEq/L Low 03-24-20 [facility] (51865) Comment: Performed By: #### [id number] #### MARCUS RemHemo [address] [place] [address] Calcium [Mass/Vol] 8.2 8.6-10.3 mg/dL Low 03-24-2019 [facility] (25927) Comment: Performed By: #### [id number] #### MARCUS RemHemo [address] [place] [address] Chloride [Moles/Vol] 110 98-107 mEq/L High 9 [facility] (00 000) Comment: Performed By: #### [id number] #### MARCUS RemHemo [address] [place] [address] CO2 [Moles/Vol] 23.0 21.0-32.0 mEq/L Normal 03-24-2019 [facility] (00 000) Comment: Performed By: #### [id number] #### MARCUS RemHemo [address] [place] [address] Creatinine [Mass/Vol] 1.1 0.5-1.1 mg/dL Normal 03-24-20 19 [facility] (00 000) Comment: Performed By: #### [id number] #### MARCUS RemHemo [address] [place] [address] Glucose [Mass/Vol] 92 70-99 mg/dL Normal 03-24-2019 [facility] (53322) Comment: Performed By: #### [id number] #### MARCUS RemHemo [address] [place] [address] Potassium [Moles/Vol] 4.1 3.5-5.3 mEq/L Normal 03-24-20 19 [facility] (00 000) Comment: Performed By: #### [id number] #### MARCUS RemHemo [address] [place] [address] Sodium [Moles/Vol] 138 136-145 mEq/L Normal 03-24-2019 [facility] (00 000) Comment: Performed By: #### [id number] #### MARCUS RemHemo [address] [place] [address] Urea nitrogen [Mass/Vol] 11 6-23 mg/dL Normal 03-24 [facility] (00 000) Comment: Performed By: #### [id number] #### MARCUSShawn Kenyon[address] [address] Urea nitrogen/Creatinine 10.0 5.4-30.0 ratio Normal 03-24 [facility] [Mass ratio] [facility] (94542) Comment: Performed By: #### [id number] #### MARCUS Jeri[address] [address] auto diff on 03-24 Basophils (Bld) [#/Vol] 0.0 0.0-0.2 E3/mcL Normal 2018 [facility] tem (41551) Comment: Order Comment: Order Added b y Discern Expert. Performed By: #### [id number] #### MARCUS Wilcox[address] [address] Basophils/100 WBC (Bld) 0.1 0.0-2.0 % Normal 2018 [facility] (00 000) Comment: Order Comment: Order Added b y Discern Expert. Performed By: #### [id number] #### [facility] Jeri[address] [address] Eos Absolute 0.1 0.0-0.7 E3/mcL Normal 03-24-2019 [facility] (93484) Comment: Order Comment: Order Added b y Discern Expert. Performed By: #### [id number] #### [facility] Kostas[address] [address] Eosinophils/100 WBC (Bld) 1.7 0.0-11.0 % Normal [facility] (00 000) Comment: Order Comment: Order Added b y Discern Expert. Performed By: #### [id number] #### [address] [address] Lymphocytes (Bld) [#/Vol] 1.3 1.2-3.4 E3/mcL Normal [facility] tem (93164) Comment: Order Comment: Order Added b y Discern Expert. Performed By: #### [id number] #### [address] [place] [address] Lymphocytes/100 WBC (Bld) 33.8 20.0-55.0 % Normal [facility] tem (97612) Comment: Order Comment: Order Added erma Aldana Expert. Performed By: #### [id number] #### MARCUS Kenyono [address] [place] [address] [place] Absolute 0.4 0.0-0.7 E3/mcL Normal 03-24-[address] [facility] (86588) Comment: Order Comment: Order Added erma y Discern Expert. Performed By: #### [id number] #### [facility] [address] [place] [address] Monocytes/100 WBC (Bld) 11.3 0.0-10.0 % High 2018 [facility] (00 000) Comment: Order Comment: Order Added erma Aldana Expert. Performed By: #### [id number] #### MARCUS [address] [address] Neutro Absolute 2.1 1.4-6.5 E3/mcL Normal 03-24-2019 [facility] (06264) Comment: Order Comment: Order Added erma Aldana Expert. Performed By: #### [id number] #### MARCUSShawn Kenyon[address] [address] Neutro Auto 53.1 37.0-75.0 % Normal 03-24-2019 [facility] (87252) Comment: Order Comment: Order Added erma Aldana Expert. Performed By: #### [id number] #### [facility] [address] [place] [address] zzplt morph on 2018 Platelet morphology finding NORMAL Normal [facility] (d) System (00 000) Comment: Performed By: #### [id number] #### [facility]US [facility] [address] [place] [address] Platelets (Bld) [#/Vol] DECREASED Normal 2018 [facility] (00 000) Comment: Performed By: #### [id number] #### [facility]US [facility] [address] [place] [id number] xr shoulder complete left on 2019-03-23 XR Shoulder Exam Date/Time: Normal 03-23-2019 [facility] Complete Left 03/23/2019 01:05 EDT Health System Reason for Exam: (00 000) Fall Report STUDY: XR Shoulder Complete Left;; 03/23/2019 1:05 am INDICATION: Fall. COMPARISON: None. ACCESSION NUMBER(S): [id number] ORDERING CLINICIAN: Narcisa Lo FINDINGS: Five views [...] TSH Qn 2.75 0.30-5.60 mcIU/mL Normal 03-23-2019 [facility] (65211) Comment: Performed By: #### [id number] #### MARCUS Luong [address] [place] [address] troponin-i on 03-23 Troponin I.cardiac 0.01 0.00-0.03 ng/mL Normal 03-23-2019 [facility] [Mass/Vol] [facility] (06565) Comment: Order Comment: Order Added b y Katya Expert. Performed By: #### [id number] #### MARCUS Luong [facility] [place] [address] manual diff on 2018 Anisocytosis Ql (Bld) 1+ Normal 03-23-20 19 [facility] (90451) Comment: Order Comment: Order Added b y Discern Expert. Performed By: #### [id number] #### MARCUS Luong [facility] [place] [id number] Basophil Man 0 0-1 % Normal 03-23-2019 [facility] (81361) Comment: Order Comment: Order Added b y Katya Expert. Performed By: #### [id number] #### MARCUS Kenyono [address] [place] [address] Eosinophils/100 WBC (Bld) 0 0-5 % Normal [facility] (53321) Comment: Order Comment: Order Added b y Discern Expert. Performed By: #### [id number] #### MARCUS Kenyono [address] [place] [address] Lymphocytes/100 WBC (Bld) 54 14-48 % High [facility] (17336) Comment: Order Comment: Order Added b y Discern Expert. Performed By: #### [id number] #### MARCUS Kenyono [address] [place] [address] Monocyte Man 4 1-11 % Normal 03-23-2019 [facility] (88952) Comment: Order Comment: Order Added b y Discern Expert. Performed By: #### [id number] #### MARCUS Kenyono [address] [place] [address] RBC morphology finding SEE MORPHOLOGY Normal [facility] tem (49247) Comment: Order Comment: Order Added b y Discern Expert. Performed By: #### [id number] #### MARCUS Kenyono [address] [place] [address] Segs Man 42 37-75 % Normal 03-23-2019 [facility] (19309) Comment: Order Comment: Order Added b y Discern Expert. Performed By: #### [id number] #### MARCUSShawn Kenyono [facility] [place] [address] magnesium on 03-23 Magnesium [Mass/Vol] 2.9 1.6-2.4 mg/dL High 9 [facility] (00 000) Comment: Performed By: #### [id number] #### MARCUSShawn Kenyono [facility] [place] [address] egfr on 2019-03-23 GFR/1.73 sq M predicted >60 mL/min/{1.73_m2} Normal 03-23-2019 [facility] among non-blacks [facility] (26259) (S/P/Bld) [Vol rate/Area] Comment: Order Comment: Order Added erma Aldana Expert. Performed By: #### [id number] #### MARCUS WilcoxHemo [address] [place] [address] GFR/1.73 sq M predicted 56 mL/min/1.73 m2 Normal 0 03-23-2019 [facility] among non-blacks [facility] (96447) (S/P/Bld) [Vol rate/Area] Comment: Order Comment: Order Added erma Aldana Expert. Performed By: #### [id number] #### MARCUS JeriHemo [facility] [place] [address] cbc w/ auto diff on 2019-03-23 Erythrocyte distribution 13.6 11.5-14.5 % Normal 03-23 [facility] width (RBC) [Ratio] Health System (70456) Comment: Performed By: #### [id number] #### [facility] [place] [address] Hematocrit (Bld) [Volume 36.9 36.0-48.0 % Normal 03-23 [facility] fraction] Health Sys tem (77391) Comment: Performed By: #### [id number] #### MARCUS WilcoxHemo [facility] [place] [address] Hemoglobin (Bld) 12.2 12.0-16.0 G/DL Normal 03-23-2019 [facility] [Mass/Vol] Health Sy stem (79641) Comment: Performed By: #### [id number] #### MARCUSShawn WilcoxHemo [facility] [place] [address] MCH (RBC) [Entitic mass] 30.1 27.0-31.0 pg Normal 03-23 [facility] (00 000) Comment: Performed By: #### [id number] #### [facility]US [facility] [place] [address] MCHC (RBC) [Mass/Vol] 33.1 33.0-37.0 G/DL Normal 03-23-20 19 [facility] (00 000) Comment: Performed By: #### [id number] #### MARCUS [facility] [place] [address] MCV (RBC) [Entitic vol] 91.0 78.0-100.0 fL Normal 03-23 [facility] (26508) Comment: Performed By: #### [id number] #### MARCUS JeriHemo [address] [place] [address] Platelet mean volume 8.3 7.4-11.0 fL Normal 9 [facility] (Bld) [Entitic vol] System (25112) Comment: Performed By: #### [id number] #### MARCUSShawn WilcoxHemo [facility] [place] [address] Platelets (Bld) [#/Vol] 97 130-400 E3/mcL Low 2018 [facility] (00 000) Comment: Performed By: #### [id number] #### MARCUS JeriHemo [facility] [place] [address] RBC (Bld) [#/Vol] 4.05 3.90-5.40 E6/mcL Normal 03-23-2019 [facility] (00 000) Comment: Performed By: #### [id number] #### MARCUSShawn WilcoxHemo [facility] [place] [address] WBC (Bld) [#/Vol] 3.0 3.6-11.0 E3/mcL Low 03-23-2019 [facility] (09460) Comment: Performed By: #### [id number] #### MARCUS JeriHemo [address] [place] [address] bmp on 2019-03-23 Anion gap [Moles/Vol] 8 10-20 mEq/L Low 03-23-20 19 [facility] (97572) Comment: Performed By: #### [id number] #### MARCUS RemHemo [address] [place] [address] Calcium [Mass/Vol] 7.8 8.6-10.3 mg/dL Low 03-23-2019 [facility] (70415) Comment: Performed By: #### [id number] #### MARCUS RemHemo [address] [place] [address] Chloride [Moles/Vol] 111 98-107 mEq/L High 9 [facility] () Comment: Performed By: #### [id number] #### MARCUS RemHemo [address] [place] [address] CO2 [Moles/Vol] 22.0 21.0-32.0 mEq/L Normal 03-23-2019 [facility] (00 ) Comment: Performed By: #### [id number] #### MARCUS RemHemo [address] [place] [address] Creatinine [Mass/Vol] 1.1 0.5-1.1 mg/dL Normal 03-23-20 [facility] (00 000) Comment: Performed By: #### [id number] #### MARCUS RemHemo [facility] [place] [address] Glucose [Mass/Vol] 102 70-99 mg/dL High 03-23-2019 [facility] (73642) Comment: Performed By: #### [id number] #### MARCUS RemHemo [address] [place] [address] Potassium [Moles/Vol] 3.5 3.5-5.3 mEq/L Normal 03-23-20 19 [facility] (00 000) Comment: Performed By: #### [id number] #### MARCUS WilcoxHemo [facility] [place] [address] Sodium [Moles/Vol] 138 136-145 mEq/L Normal 03-23-2019 [facility] (00 000) Comment: Performed By: #### [id number] #### MARCUS RemHemo [address] [place] [address] Urea nitrogen [Mass/Vol] 9 6-23 mg/dL Normal 03-23 [facility] (00 000) Comment: Performed By: #### [id number] #### MARCUS RemHemo [address] [place] [address] Urea nitrogen/Creatinine 8.2 5.4-30.0 ratio Normal 03-23 [facility] [Mass ratio] [facility] (49354) Comment: Performed By: #### [id number] #### MARCUS RemHemo [address] [place] [address] .manual abs on 2019 -06-06 Basophil Abs Man 0.0 0.0-0.2 10x3/ Normal 03-23-2019 [facility] (61120) Comment: Order Comment: Order Added b y Discern Expert. Performed By: #### [id number] #### MARCUS WilcoxHemo [address] [place] [address] Eos Abs Man 0.0 0.0-0.5 10x3/ Normal 03-23-2019 [facility] (35560) Comment: Order Comment: Order Added b y Discern Expert. Performed By: #### [id number] #### MARCUS RemHemo [address] [place] [address] Lymph Abs Man 1.6 1.2-3.4 10x3/ Normal 03-23-2019 [facility] (69972) Comment: Order Comment: Order Added b y Discern Expert. Performed By: #### [id number] #### MARCUS JeriHemo [address] [place] [address] Lassen Abs Man 0.1 0.0-0.7 10x3/ Normal 03-23-2019 [facility] (49468) Comment: Order Comment: Order Added b y Discern Expert. Performed By: #### [id number] #### MARCUS WilcoxHemo [address] [place] [address] Segs Abs Man 1.3 1.4-6.5 10x3/ Low 03-23-2019 [facility] (14353) Comment: Order Comment: Order Added b y Discern Expert. Performed By: #### [id number] #### MARCUSShawn WilcoxHemo [facility] [place] [address] xr chest ap portable on 2019-03-22 XR Chest AP Exam Date/Time: Normal 03-22-2019 [facility] Portable 03/22/2019 20:26 EDT [facility] Reason for Exam: (00 000) Chest pain Report STUDY: XR Chest AP Portable; 03/22/2019 8:26 pm INDICATION: Chest pain. COMPARISON: 12/21/2018 ACCESSION NUMBER(S): [id number] ORDERING CLINICIAN: Xuan Garcia FINDINGS: Single portable [...] 8:37 pm Signed by: Lacy Alvarez MD Technologist: [facility] troponin-i on 03-22 Troponin I.cardiac 0.01 0.00-0.03 ng/mL Normal 03-22-2019 [facility] [Mass/Vol] [facility] (99875) Comment: Performed By: #### [id number] #### MARCUS WilcoxHemo [facility] [place] [id number] magnesium on 03-22 Magnesium [Mass/Vol] 1.6 1.6-2.4 mg/dL Normal 9 [facility] (00 000) Comment: Performed By: #### [id number] #### MARCUS RemHemo [address] [place] [address] egfr on 2019-03-22 GFR/1.73 sq M predicted >60 mL/min/{1.73_m2} Normal 03-22-2019 [facility] among non-blacks [facility] (78190) (S/P/Bld) [Vol rate/Area] Comment: Order Comment: Order Added b y Discern Expert. Performed By: #### [id number] #### MARCUS RemHemo [address] [place] [address] GFR/1.73 sq M predicted 52 mL/min/1.73 m2 Normal 0 03-22-2019 [facility] among non-blacks [facility] (03738) (S/P/Bld) [Vol rate/Area] Comment: Order Comment: Order Added b y Discern Expert. Performed By: #### [id number] #### MARCUS RemHemo [address] [place] [address] cbc w/ auto diff on 2019-03-22 Erythrocyte distribution 13.5 11.5-14.5 % Normal 03-22 [facility] width (RBC) [Ratio] [facility] (87231) Comment: Performed By: #### [id number] #### MARCUSShawn WilcoxHemo [facility] [place] [address] Hematocrit (Bld) [Volume 37.5 36.0-48.0 % Normal 03-22 [facility] (83268) Comment: Performed By: #### [id number] #### MARCUSShawn WilcoxHemo [address] [place] [address] Hemoglobin (Bld) 12.8 12.0-16.0 G/DL Normal 03-22-2019 [facility] [Mass/Vol] [facility] (58131) Comment: Performed By: #### [id number] #### [facility] [address] [place] [address] MCH (RBC) [Entitic mass] 30.9 27.0-31.0 pg Normal 03-22 [facility] (00 000) Comment: Performed By: #### [id number] #### [facility] [address] MCHC (RBC) [Mass/Vol] 34.1 33.0-37.0 G/DL Normal 03-22-20 19 [facility] (00 000) Comment: Performed By: #### [id number] #### [facility]US [facility] [address] [place] [address] MCV (RBC) [Entitic vol] 90.6 78.0-100.0 fL Normal 03-22 [facility] (03740) Comment: Performed By: #### [id number] #### [facility]ARCUS [facility] [address] [place] [address] Platelet mean volume 8.3 7.4-11.0 fL Normal 9 [facility] (Bld) [Entitic vol] System (65692) Comment: Performed By: #### [id number] #### [facility] [address] [place] [address] Platelets (Bld) [#/Vol] 113 130-400 E3/mcL Low 2018 [facility] (00 000) Comment: Performed By: #### [id number] #### MARCUS WilcoxHemo [address] [place] [address] RBC (Bld) [#/Vol] 4.14 3.90-5.40 E6/mcL Normal 03-22-2019 [facility] () Comment: Performed By: #### [id number] #### MARCUS WilcoxHemo [address] [place] [address] WBC (Bld) [#/Vol] 4.1 3.6-11.0 E3/mcL Normal 03-22-2019 [facility] () Comment: Performed By: #### [id number] #### MARCUS JeriHemo [facility] [place] [address] bmp on 2019-03-22 Anion gap [Moles/Vol] 13 10-20 mEq/L Normal 03-22-20 [facility] () Comment: Performed By: #### [id number] #### MARCUS JeriHemo [facility] [place] [address] Calcium [Mass/Vol] 8.4 8.6-10.3 mg/dL Low 03-22-2019 [facility] (40463) Comment: Performed By: #### [id number] #### MARCUS JeriHemo [facility] [place] [address] Chloride [Moles/Vol] 110 98-107 mEq/L High 9 [facility] () Comment: Performed By: #### [id number] #### MARCUS JeriHemo [address] [place] [address] CO2 [Moles/Vol] 21.0 21.0-32.0 mEq/L Normal 03-22-2019 [facility] () Comment: Performed By: #### [id number] #### MARCUS JeriHemo [address] [place] [address] Creatinine [Mass/Vol] 1.1 0.5-1.1 mg/dL Normal 03-22-20 [facility] (00 000) Comment: Performed By: #### [id number] #### MARCUS RemHemo [address] [place] [address] Glucose [Mass/Vol] 95 70-99 mg/dL Normal 03-22-2019 [facility] (92567) Comment: Performed By: #### [id number] #### MARCSU Kenyon[address] [address] Potassium [Moles/Vol] 4.0 3.5-5.3 mEq/L Normal 03-22-20 19 [facility] (00 000) Comment: Performed By: #### [id number] #### MARCUS Kenyon[address] [address] Sodium [Moles/Vol] 139 136-145 mEq/L Normal 03-22-2019 [facility] (00 000) Comment: Performed By: #### [id number] #### MARCUS Kenyon[address] [address] Urea nitrogen [Mass/Vol] 10 6-23 mg/dL Normal 03-22 [facility] (00 000) Comment: Performed By: #### [id number] #### MARCUS Kenyon[address] [address] Urea nitrogen/Creatinine 9.1 5.4-30.0 ratio Normal 03-22 [facility] [Mass ratio] [facility] (14177) Comment: Performed By: #### [id number] #### MARCUS Kenyon[address] [address] auto diff on 2019-0 6-05 Basophils (Bld) [#/Vol] 0.0 0.0-0.2 E3/mcL Normal 2018 [facility] (71110) Comment: Order Comment: Order Added b y Discern Expert. Performed By: #### [id number] #### MARCUS Kenyono [address] [place] [address] Basophils/100 WBC (Bld) 0.4 0.0-2.0 % Normal 2018 [facility] (00 000) Comment: Order Comment: Order Added b y Discern Expert. Performed By: #### [id number] #### MARCUS Kenyon[address] [address] Eos Absolute 0.1 0.0-0.7 E3/mcL Normal 03-22-2019 [facility] (42969) Comment: Order Comment: Order Added b y Discern Expert. Performed By: #### [id number] #### MARCUS WilcoxHemo [address] [place] [address] Eosinophils/100 WBC (Bld) 2.0 0.0-11.0 % Normal [facility] (00 000) Comment: Order Comment: Order Added b y Discern Expert. Performed By: #### [id number] #### MARCUS WilcoxHemo [address] [place] [address] Lymphocytes (Bld) [#/Vol] 1.1 1.2-3.4 E3/mcL Low [facility] (00 000) Comment: Order Comment: Order Added b y Discern Expert. Performed By: #### [id number] #### MARCUS Kenyono [address] [place] [address] Lymphocytes/100 WBC (Bld) 27.1 20.0-55.0 % Normal [facility] (54931) Comment: Order Comment: Order Added b y Discern Expert. Performed By: #### [id number] #### MARCUS WilcoxHemo [address] [place] [address] Lassen Absolute 0.5 0.0-0.7 E3/mcL Normal 03-22-2019 [facility] (28967) Comment: Order Comment: Order Added b y Discern Expert. Performed By: #### [id number] #### MARCUS WilcoxHemo [address] [place] [address] Monocytes/100 WBC (Bld) 11.0 0.0-10.0 % High 2018 [facility] (00 000) Comment: Order Comment: Order Added b y Discern Expert. Performed By: #### [id number] #### MARCUS WilcoxHemo [address] [place] [address] Neutro Absolute 2.5 1.4-6.5 E3/mcL Normal 03-22-2019 [facility] (92453) Comment: Order Comment: Order Added b y Discern Expert. Performed By: #### [id number] #### MARCUS Kenyono [address] [place] [address] Neutro Auto 59.5 37.0-75.0 % Normal 03-22-2019 [facility] (82623) Comment: Order Comment: Order Added erma lizama Discern Expert. Performed By: #### [id number] #### MARCUS Kenyoncorky [address] [place] [address] ua complete on 2018 Color (U) Yellow Yellow Normal 03-19-2019 [facility] (28640) Comment: Order Comment: Order Added b y Discern Expert. Performed By: #### [id number] #### MARCUS Kenyoncorky [address] [place] [address] Glucose (U) [Mass/Vol] Negative Negative mg/dL Normal [address] [place], [place] [address]s tem (22120) Comment: Order Comment: Order Added erma lizama Discern Expert. Performed By: #### [id number] #### MARCUS Kenyoncorky [address] [place] [address] Ketones Ql (U) Negative Negative Normal 03-19-2019 [facility] (48672) Comment: Order Comment: Order Added erma lizama Discern Expert. Performed By: #### [id number] #### MARCUS Kenyoncorky [address] [place] [address] RBC (U) [#/Vol] 0-3 0-3 Normal 03-19-2019 [facility] (66897) Comment: Order Comment: Order Added b y Discern Expert. Performed By: #### [id number] #### MARCUS Kenyono [address] [place] [address] UA Blood Negative Negative Normal 03-19-2019 [facility] (81621) Comment: Order Comment: Order Added b y Discern Expert. Performed By: #### [id number] #### MARUCS Kenyono [address] [place] [address] UA Clarity SltCloudy Clear Abnormal 03-19-2019 [facility] (82126) Comment: Order Comment: Order Added b y Discern Expert. Performed By: #### [id number] #### MARCUS JeriHemo [facility] [place] [address] UA Hyal Cast 3-5 0-2 Abnormal 03-19-2019 [facility] (84218) Comment: Order Comment: Order Added erma Aldana Expert. Performed By: #### [id number] #### MARCUSShawn Luong [address] [place] [address] UA Leuk Est 1+ Negative Abnormal 03-19-2019 [facility] (40512) Comment: Order Comment: Order Added erma Aldana Expert. Performed By: #### [id number] #### MARCUSShawn Luong [address] [place] [address] UA Mucous Trace Trace Abnormal 03-19-2019 [facility] (91164) Comment: Order Comment: Order Added erma Aldana Expert. Performed By: #### [id number] #### MARCUS Luong [address] [place] [address] UA Nitrite Negative Negative Normal 03-19-2019 [facility] (12815) Comment: Order Comment: Order Added erma Aldana Expert. Performed By: #### [id number] #### MARCUSShawn Luong [address] [place] [address] UA pH 5.0 4.6-8.0 Normal 03-19-2019 [facility] (95215) Comment: Order Comment: Order Added erma Aldana Expert. Performed By: #### [id number] #### MARCUSShawn Luong [address] [place] [address] UA Protein Negative Negative Normal 03-19-2019 [facility] (42610) Comment: Order Comment: Order Added erma Aldana Expert. Performed By: #### [id number] #### MARCUSShawn Luong [address] [place] [address] UA Spec Grav 1.010 1.003-1.030 Normal 03-19-2019 [facility] (25633) Comment: Order Comment: Order Added erma Aldana Expert. Performed By: #### [id number] #### MARCUSShawn Luong [address] [place], [place] [address] UA Squam Epithelial 10-20 0-5 Abnormal 03-19-2019 [facility] (66653) Comment: Order Comment: Order Added erma Aldana Expert. Performed By: #### [id number] #### MARCUS Luong [address] [place] [address] UA Urobilinogen Negative Normal 03-19-2019 [facility] (82420) Comment: Order Comment: Order Added erma Aldana [...] laboratory within 24 hours. Performed By: #### [id number] #### MARCUS JeriHemo [address] [place] [address] UA WBC 0-5 0-5 Normal 03-19-2019 [facility] (14799) Comment: Order Comment: Order Added erma Aldana Expert. Performed By: #### [id number] #### MARCUS JeriKarlo [facility] [place] [address] Urobilinogen Qn (U) Negative Negative Normal 03-19-2019 [facility] (00 000) Comment: Order Comment: Order Added erma Aldana Expert. Performed By: #### [id number] #### MARCUS JeriHemo [facility] [place] [address] ionized calcium poc order on 2019-03-18 Ionized Calcium POC Order Collected Normal [facility] (00 000) Comment: Performed By: #### [id number] #### MARCUS JeriHemo [facility] [place] [address] ionized calcium lvl on 2019-03-18 Ionized Ca. 4.5 4.5-5.6 mg/dL Normal 03-18-2019 [facility] (84499) Comment: Performed By: #### [id number] #### MARCUS JeriHemo [facility] [place] [address] egfr on 2019-03-18 GFR/1.73 sq M predicted 56 mL/min/1.73 m2 Normal 0 03-18-2019 [facility] among non-blacks [facility] (06068) (S/P/Bld) [Vol rate/Area] Comment: Order Comment: Order Added erma Aldana Expert. Performed By: #### [id number] #### MARCUS RemHemo [address] [place] [address] GFR/1.73 sq M predicted 46 mL/min/1.73 m2 Normal 0 03-18-2019 [facility] among non-blacks [facility] (34134) (S/P/Bld) [Vol rate/Area] Comment: Order Comment: Order Added b y Discern Expert. Performed By: #### [id number] #### MARCUS RemHemo [address] [place] [address] ct head or brain w/o contrast on 2019-03-18 CT Head or Brain Exam Date/Time: Normal 019 [facility] w/o Contrast 03/18/2019 21:34 EDT Health System Reason for Exam: (00 000) Altered mental status Report STUDY: CT Head or Brain w/o Contrast; 03/18/2019 9:34 pm INDICATION: Altered mental status. COMPARISON: 03/16/2019 ACCESSION NUMBER(S): [id number] ORDERING CLINICIAN: Ac Gao TECHNIQUE: Noncontrast CT [...] Erythrocyte distribution 14.1 11.5-14.5 % Normal 03-18 [facility] width (RBC) [Ratio] [facility] (88917) Comment: Performed By: #### [id number] #### MARCUS Kenyono [facility] [place] [address] Hematocrit (Bld) [Volume 40.4 36.0-48.0 % Normal 03-18 [facility] (15044) Comment: Performed By: #### [id number] #### MARCUS WilcoxHemo [facility] [place] [address] Hemoglobin (Bld) 13.4 12.0-16.0 G/DL Normal 03-18-2019 [facility] [Mass/Vol] [facility] (14460) Comment: Performed By: #### [id number] #### MARCUS WilcoxHemo [facility] [place] [address] MCH (RBC) [Entitic mass] 30.2 27.0-31.0 pg Normal 03-18 [facility] (00 000) Comment: Performed By: #### [id number] #### MARCUSShanw WilcoxHemo [address] [place] [address] MCHC (RBC) [Mass/Vol] 33.1 33.0-37.0 G/DL Normal 03-18-20 19 [facility] (00 000) Comment: Performed By: #### [id number] #### MARCUSShawn WilcoxHemo [address] [place] [address] MCV (RBC) [Entitic vol] 91.3 78.0-100.0 fL Normal 03-18 [facility] (91635) Comment: Performed By: #### [id number] #### MARCUSShawn WilcoxHemo [address] [place] [address] Platelet mean volume 8.0 7.4-11.0 fL Normal 9 [facility] (Bld) [Entitic vol] System (03152) Comment: Performed By: #### [id number] #### MARCUSShawn WilcoxHemo [facility] [place] [address] Platelets (Bld) [#/Vol] 123 130-400 E3/mcL Low 2018 [facility] (00 000) Comment: Performed By: #### [id number] #### [facility]ARCUS [facility] [place] [address] RBC (Bld) [#/Vol] 4.43 3.90-5.40 E6/mcL Normal 03-18-2019 [facility] () Comment: Performed By: #### [id number] #### MARCUS JeriHemo [address] [place] [address] WBC (Bld) [#/Vol] 4.3 3.6-11.0 E3/mcL Normal 03-18-2019 [facility] () Comment: Performed By: #### [id number] #### MARCUS RemHemo [address] [place] [address] bmp on 2019-03-18 Anion gap [Moles/Vol] 11 10-20 mEq/L Normal 03-18-20 [facility] () Comment: Performed By: #### [id number] #### MARCUS JeriHemo [facility] [place] [address] Calcium [Mass/Vol] 8.8 8.6-10.3 mg/dL Normal 03-18-2019 [facility] () Comment: Performed By: #### [id number] #### MARCUS RemHemo [address] [place] [address] Chloride [Moles/Vol] 110 98-107 mEq/L High [facility] () Comment: Performed By: #### [id number] #### MARCUS JeriHemo [address] [place] [address] CO2 [Moles/Vol] 20.0 21.0-32.0 mEq/L Low 03-18-2019 [facility] (94223) Comment: Performed By: #### [id number] #### MARCUS RemHemo [address] [place] [address] Creatinine [Mass/Vol] 1.2 0.5-1.1 mg/dL High 03-18-20 [facility] ( 000) Comment: Performed By: #### [id number] #### MARCUS RemHemo [address] [place] [address] Glucose [Mass/Vol] 90 70-99 mg/dL Normal 03-18-2019 [facility] (69246) Comment: Performed By: #### [id number] #### MARCUS Kenyono [facility] [place] [address] Potassium [Moles/Vol] 4.0 3.5-5.3 mEq/L Normal 03-18-20 19 [facility] (00 000) Comment: Performed By: #### [id number] #### MARCUSShawn Kenyono [facility] [place] [address] Sodium [Moles/Vol] 137 136-145 mEq/L Normal 03-18-2019 [facility] (00 000) Comment: Performed By: #### [id number] #### MARCUSShawn Kenyono [address] [place] [address] Urea nitrogen [Mass/Vol] 9 6-23 mg/dL Normal 03-18 [facility] (00 000) Comment: Performed By: #### [id number] #### MARCUSShawn Wilcox[address] [address] Urea nitrogen/Creatinine 7.5 5.4-30.0 ratio Normal 03-18 [facility] [Mass ratio] [facility] (86002) Comment: Performed By: #### [id number] #### MARCUSShawn Kenyon[address] [address] auto diff on 6- Basophils (Bld) [#/Vol] 0.0 0.0-0.2 E3/mcL Normal 2018 [facility] (23574) Comment: Order Comment: Order Added b y Discern Expert. Performed By: #### [id number] #### MARCUSShawn Kenyono [address] [place] [address] Basophils/100 WBC (Bld) 0.5 0.0-2.0 % Normal 2018 [facility] (00 000) Comment: Order Comment: Order Added b y Discern Expert. Performed By: #### [id number] #### MARCUS Kenyono [facility] [place] [address] Eos Absolute 0.1 0.0-0.7 E3/mcL Normal 03-18-2019 [facility] (78032) Comment: Order Comment: Order Added b y Discern Expert. Performed By: #### [id number] #### MARCUS WilcoxHemo [address] [place] [address] Eosinophils/100 WBC (Bld) 2.2 0.0-11.0 % Normal [facility] (00 000) Comment: Order Comment: Order Added b y Discern Expert. Performed By: #### [id number] #### MARCUS WilcoxHemo [facility] [place] [address] Lymphocytes (Bld) [#/Vol] 1.3 1.2-3.4 E3/mcL Normal [facility] tem (62193) Comment: Order Comment: Order Added b y Discern Expert. Performed By: #### [id number] #### MARCUS WilcoxHemo [address] [place] [address] Lymphocytes/100 WBC (Bld) 30.1 20.0-55.0 % Normal [facility] tem (20678) Comment: Order Comment: Order Added b y Discern Expert. Performed By: #### [id number] #### MARCUS RemHemo [address] [place] [address] [place] Absolute 0.4 0.0-0.7 E3/mcL Normal 03-18-2019 [facility] (71391) Comment: Order Comment: Order Added b y Discern Expert. Performed By: #### [id number] #### MARCUS WilcoxHemo [address] [place] [address] Monocytes/100 WBC (Bld) 9.9 0.0-10.0 % Normal 2018 [facility] (00 000) Comment: Order Comment: Order Added b y Discern Expert. Performed By: #### [id number] #### MARCUS RemHemo [address] [place] [address] Neutro Absolute 2.5 1.4-6.5 E3/mcL Normal 03-18-2019 [facility] (91329) Comment: Order Comment: Order Added b y Discern Expert. Performed By: #### [id number] #### [facility] RemHemo [address] [place] [address] Neutro Auto 57.3 37.0-75.0 % Normal 03-18-2019 [facility] (11537) Comment: Order Comment: Order Added erma Aldana Expert. Performed By: #### [id number] #### MARCUS WilcoxZeterao [address] [place], [place] [address] lactic acid on 2018 Lactate [Moles/Vol] 1.2 0.4-2.0 mmol/L Normal 03-16-2019 [facility] (00 000) Comment: Performed By: #### [id number] #### MARCUS [place] [id number] egfr on 2019-03-16 GFR/1.73 sq M predicted 58 mL/min/1.73 m2 Normal 0 03-16-2019 [facility] non-blacks [facility] (75770) (S/P/Bld) [Vol rate/Area] Comment: Order Comment: Order Added erma y Katya Expert. Performed By: #### [id number] #### [place] [address] GFR/1.73 sq M predicted 48 mL/min/1.73 m2 Normal 0 03-16-2019 [facility] non-[facility] (80368) (S/P/Bld) [Vol rate/Area] Comment: Order Comment: Order Added erma Aldana Expert. Performed By: #### [id number] #### [place] [address] [place] spine cervical w/o contrast on 2019-03-16 CT Spine Exam Date/Time: Normal 03-16-2019 [facility] Cervical w/o 03/16/2019 00:08 EDT [facility] Contrast Reason for Exam: Sys tem (95759) Trauma Report STUDY: CT Spine Cervical w/o Contrast; 03/16/2019 12:46 am INDICATION: Trauma. COMPARISON: None. ACCESSION NUMBER(S): [id number] ORDERING CLINICIAN: Caren Lozano TECHNIQUE: Axial noncontrast [...] CT Head or Brain Exam Date/Time: Normal [address] [place] [address] w/o Contrast 03/16/2019 00:08 [facility] System Reason for Exam: (00 000) Injury Report STUDY: CT Head or Brain w/o Contrast; 03/16/2019 12:46 am INDICATION: Injury. COMPARISON: 12/01/2018 ACCESSION NUMBER(S): [id number] ORDERING CLINICIAN: Caren Lozano TECHNIQUE: Noncontrast CT [...] Albumin [Mass/Vol] 4.2 3.4-5.0 gm/dL Normal 03-16-2019 [facility] (00 000) Comment: Performed By: #### [id number] #### MARCUS RemHemo [address] [place] [address] Albumin/Globulin [Mass 1.7 1.1-1.9 ratio Normal 019 Located within [facility] (75160) Comment: Performed By: #### [id number] #### MARCUS RemHemo [address] [place] [address] Alk Phos 104 33-110 Int._Unit/L Normal 03-16-2019 [facility] (73290) Comment: Performed By: #### [id number] #### MARCUS RemHemo [address] [place] [address] ALT [Catalytic 31 7-45 Int._Unit/L Normal 03-16-2019 [facility] activity[facility] (66706) Comment: Performed By: #### [id number] #### MARCUS RemHemo [address] [place] [address] Anion gap [Moles/Vol] 12 10-20 mEq/L Normal 03-16-20 19 [facility] (00 000) Comment: Performed By: #### [id number] #### MARCUS RemHemo [address] [place] [address] AST [Catalytic 37 9-39 Int._Unit/L Normal 03-16-2019 [facility] (63620) Comment: Performed By: #### [id number] #### MARCUS RemHemo [address] [place] [address] Bili Total 0.79 0.00-1.20 mg/dL Normal 03-16-2019 [facility] (22761) Comment: Performed By: #### [id number] #### MARCUS RemHemo [address] [place] [address] Calcium [Mass/Vol] 8.8 8.6-10.3 mg/dL Normal 03-16-2019 [facility] (00 000) Comment: Performed By: #### [id number] #### MARCUS RemHemo [address] [place] [address] Chloride [Moles/Vol] 110 98-107 mEq/L High 9 [facility] (00 000) Comment: Performed By: #### [id number] #### MARCUS WilcoxHemo [address] [place] [address] CO2 [Moles/Vol] 20.0 21.0-32.0 mEq/L Low 03-16-2019 [facility] (28252) Comment: Performed By: #### [id number] #### MARCUS WilcoxHemo [address] [place] [address] Creatinine [Mass/Vol] 1.2 0.5-1.1 mg/dL High 03-16-20 [facility] ( 000) Comment: Performed By: #### [id number] #### MARCUS RemHemo [facility] [place] [address] Globulin (S) [Mass/Vol] 3.0 2.0-4.0 G/DL Normal 2018 [facility] () Comment: Performed By: #### [id number] #### MARCUS WilcoxHemo [facility] [place] [address] Glucose [Mass/Vol] 114 70-99 mg/dL High 03-16-2019 [facility] (15322) Comment: Performed By: #### [id number] #### MARCUS WilcoxHemo [facility] [place] [address] Potassium [Moles/Vol] 3.4 3.5-5.3 mEq/L Low 03-16-20 [facility] ( 000) Comment: Performed By: #### [id number] #### MARCUS WilcoxHemo [facility] [place] [address] Protein [Mass/Vol] 6.7 6.4-8.2 gm/dL Normal 03-16-2019 [facility] ( 000) Comment: Performed By: #### [id number] #### MARCUS RemHemo [address] [place] [address] Sodium [Moles/Vol] 139 136-145 mEq/L Normal 03-16-2019 [facility] ( 000) Comment: Performed By: #### [id number] #### MARCUS RemHemo [facility] [place] [address] Urea nitrogen [Mass/Vol] 9 6-23 mg/dL Normal 03-16 [facility] (00 000) Comment: Performed By: #### [id number] #### MARCUS WilcoxHemo [facility] [place] [address] Urea nitrogen/Creatinine 7.5 5.4-30.0 ratio Normal 03-16 [facility] [Mass ratio] Health System (07572) Comment: Performed By: #### [id number] #### MARCUS WilcoxHemo [facility] [place] [address] cbc w/ auto diff on 2019-03-16 Erythrocyte distribution 13.9 11.5-14.5 % Normal 03-16 [facility] width (RBC) [Ratio] Health System (52965) Comment: Performed By: #### [id number] #### MARCUS JeriHemo [address] [place] [address] Hematocrit (Bld) [Volume 40.6 36.0-48.0 % Normal 03-16 [facility]] Health Sys tem (77971) Comment: Performed By: #### [id number] #### MARCUS JeriHemo [address] [place] [address] Hemoglobin (Bld) 13.5 12.0-16.0 G/DL Normal 03-16-2019 [facility] [Mass/Vol] Health Sy stem (46523) Comment: Performed By: #### [id number] #### MARCUS WilcoxHemo [facility] [place] [address] MCH (RBC) [Entitic mass] 30.4 27.0-31.0 pg Normal 03-16 [facility] (00 000) Comment: Performed By: #### [id number] #### MARCUS RemHemo [facility] [place] [address] MCHC (RBC) [Mass/Vol] 33.3 33.0-37.0 G/DL Normal 03-16-20 19 [facility] (00 000) Comment: Performed By: #### [id number] #### MARCUSShawn WilcoxHemo [facility] [place] [address] MCV (RBC) [Entitic vol] 91.4 78.0-100.0 fL Normal 03-16 [facility] Sys tem (64591) Comment: Performed By: #### [id number] #### MARCUS Kenyono [facility] [place] [address] Platelet mean volume 8.3 7.4-11.0 fL Normal 9 [facility] (Bld) [Entitic vol] System (75105) Comment: Performed By: #### [id number] #### MARCUS Kenyono [address] [place] [address] Platelets (Bld) [#/Vol] 118 130-400 E3/mcL Low 2018 [facility] ( 000) Comment: Performed By: #### [id number] #### MARCUS Kenyono [address] [place] [address] RBC (Bld) [#/Vol] 4.45 3.90-5.40 E6/mcL Normal 03-16-2019 [facility] () Comment: Performed By: #### [id number] #### MARCUSShawn Wilcox[address] [address] WBC (Bld) [#/Vol] 4.4 3.6-11.0 E3/mcL Normal 03-16-[address] [facility] () Comment: Performed By: #### [id number] #### MARCUS Kenyon[address] [address] auto diff on 2019-0 5-30 Basophils (Bld) [#/Vol] 0.0 0.0-0.2 E3/mcL Normal 2018 [facility] tem (27237) Comment: Order Comment: Order Added b y Discern Expert. Performed By: #### [id number] #### MARCUS WilcoxHemo [facility] [place] [address] Basophils/100 WBC (Bld) 0.9 0.0-2.0 % Normal 2018 [facility] (00 000) Comment: Order Comment: Order Added b y Discern Expert. Performed By: #### [id number] #### MARCUS WilcoxHemo [address] [place] [address] Eos Absolute 0.1 0.0-0.7 E3/mcL Normal 03-16-2019 [facility] (98489) Comment: Order Comment: Order Added b y Discern Expert. Performed By: #### [id number] #### MARCUS WilcoxHemo [address] [place] [address] Eosinophils/100 WBC (Bld) 2.6 0.0-11.0 % Normal 02-17 [facility] (00 000) Comment: Order Comment: Order Added b y Discern Expert. Performed By: #### [id number] #### MARCUS RemHemo [address] [place] [address] Lymphocytes (Bld) [#/Vol] 1.0 1.2-3.4 E3/mcL Low 02-17 [facility] (00 000) Comment: Order Comment: Order Added b y Discern Expert. Performed By: #### [id number] #### MARCUS WilcoxHemo [address] [place] [address] Lymphocytes/100 WBC (Bld) 23.0 20.0-55.0 % Normal 02-17 [facility] Sys tem (62396) Comment: Order Comment: Order Added b y Discern Expert. Performed By: #### [id number] #### MARCUS WilcoxHemo [address] [place] [address] [place] Absolute 0.3 0.0-0.7 E3/mcL Normal 03-16-2019 [facility] (64505) Comment: Order Comment: Order Added b y Discern Expert. Performed By: #### [id number] #### MARCUS WilcoxHemo [address] [place] [address] Monocytes/100 WBC (Bld) 6.8 0.0-10.0 % Normal 2018 [facility] (00 000) Comment: Order Comment: Order Added b y Discern Expert. Performed By: #### [id number] #### MARCUS WilcoxHemo [address] [place] [address] Neutro Absolute 2.9 1.4-6.5 E3/mcL Normal 03-16-2019 [facility] (96541) Comment: Order Comment: Order Added b y Discern Expert. Performed By: #### [id number] #### MARCUS RemHemo [address] [place] [address] Neutro Auto 66.7 37.0-75.0 % Normal 03-16-2019 [facility] (49547) Comment: Order Comment: Order Added erma Aldana Expert. Performed By: #### [id number] #### MARCUS RemHemo [address] [place] [address] No panel information on 2019-03-16 Aleksey Longoria MD 03-16-2019 [facility] 03/16/2019 4:19 PM ( 70787) [facility] EEG Report Reason for EEG: Seizures. Summary: [...] conc 84 65 - 99 mg/dL 03-16-2019 [facility] (50884) Interpretation and Normal 03-16-2019 [facility] review of (93937) laboratory results Interpretation and Abnormal 03-16-2019 [facility] review of (06821) laboratory results Valproate mass conc <3 OTH - ug/mL Low 03-16-2019 [facility] OTH (70840) Cobalamin (Vitamin 354 193 - pg/mL 03-16-2019 [facility] B12) mass conc 986 (4321 5) Folate mass conc 6.9 3.1 - ng/mL [facility]81331[facility] Comment: Deficient <2.2 Borderline 2.2 - 3.0 Excessive >17.5 Interpretation and Normal 03-16-2019 [facility] review of laboratory (25271) results Interpretation and Normal 03-16-2019 [facility] review of laboratory (74465) results Thyrotropin Qn 2.12 OTH - OTH m[IU]/L 03-16-2019 [facility] (42536) This order has 03-16-2019 [facility] been (24123) auto-finalized and does not contain a result. This order has 03-16-2019 [facility] (44941) auto-finalized and does not contain a result. ua complete on 2018 Color (U) Yellow Normal 03-11-2019 [facility] (76300) Comment: Performed By: #### [id number] #### MARCUS RemHemo [address] [place] [address] Glucose (U) [Mass/Vol] Negative Negative mg/dL Normal 019 [facility] (41182) Comment: Performed By: #### [id number] #### MARCUS RemHemo [address] [place] [address] Ketones Ql (U) Negative Negative Normal 03-11-2019 [facility] (33183) Comment: Performed By: #### [id number] #### MARCUS RemHemo [address] [place] [address] RBC (U) [#/Vol] 0-3 0-3 Normal 03-11-2019 [facility] (43642) Comment: Performed By: #### [id number] #### MARCUS RemHemo [address] [place] [address] UA Blood Negative Negative Normal 03-11-2019 [facility] (73180) Comment: Performed By: #### [id number] #### MARCUS RemHemo [address] [place] [address] UA Bacteria Trace None Abnormal 03-11-2019 [facility] (95992) Comment: Performed By: #### [id number] #### MARCUS RemHemo [facility] [place] [address] UA Clarity Clear Clear Normal 03-11-2019 [facility] (52893) Comment: Performed By: #### [id number] #### MARCUS RemHemo [address] [place] [address] UA Leuk Est Negative Negative Normal 03-11-2019 [facility] (04937) Comment: Performed By: #### [id number] #### MARCUS RemHemo [address] [place] [address] UA Mucous Trace Trace Abnormal 03-11-2019 [facility] (29109) Comment: Performed By: #### [id number] #### MARCUS WilcoxHemo [address] [place] [address] UA Nitrite Negative Negative Normal 03-11-2019 [facility] (15392) Comment: Performed By: #### [id number] #### MARCUS Kenyono [facility] [place] [address] UA pH 5.0 4.6-8.0 Normal 03-11-2019 [facility] (21267) Comment: Performed By: #### [id number] #### MARCUS WilcoxHemo [facility] [place] [address] UA Protein Negative Negative Normal 03-11-2019 [facility] (34232) Comment: Performed By: #### [id number] #### MARCUS WilcoxHemo [facility] [place] [address] UA Spec Grav 1.012 1.003-1.030 Normal 03-11-2019 [facility] (60383) Comment: Performed By: #### [id number] #### MARCUS WilcoxHemo [address] [place] [address] UA Squam Epithelial 10-20 0-5 Abnormal 03-11-2019 [facility] (69444) Comment: Performed By: #### [id number] #### MARCUS WilcoxHemo [address] [place] [address] UA Urobilinogen Negative Normal 03-11-2019 [facility] (19700) Comment: Result Comment: Due to a man ufacturing issue, low positive urobilinogen results may be fasely positi ve. Correlate with urine bilirubin and additional clinical/laborato ry findings to assess the risk of hemolytic anemia or liver disease. If clinically indicated, repeat testing with an alternate method is availabl e by contacting the laboratory within 24 hours. Performed By: #### [id number] #### MARCUS WilcoxHemo [facility] [place] [address] UA WBC 0-5 0-5 Normal 03-11-2019 [facility] (29521) Comment: Performed By: #### [id number] #### MARCUS WilcoxHemo [facility] [place] [address] Urobilinogen Qn (U) Negative Negative Normal 03-11-2019 [facility] (00 000) Comment: Performed By: #### [id number] #### MARCUS Kenyono [facility] [place] [address] troponin-i on 03-11 Troponin I.cardiac 0.01 0.00-0.03 ng/mL Normal 03-11-2019 [facility] [Mass/Vol] Health Sy stem (04306) Comment: Performed By: #### [id number] #### MARCUS Kenyono [facility] [place] [address] egfr on 2019-03-11 GFR/1.73 sq M predicted 58 mL/min/1.73 m2 Normal 0 03-11-2019 [facility] among non-blacks [facility] (81232) (S/P/Bld) [Vol rate/Area] Comment: Order Comment: Order Added b y Katya Expert. Performed By: #### [id number] #### MARCUS [place] [id number] GFR/1.73 sq M predicted 48 mL/min/1.73 m2 Normal 0 03-11-2019 [facility] among non-blacks [facility] (91772) (S/P/Bld) [Vol rate/Area] Comment: Order Comment: Order Added b y Katya Expert. Performed By: #### [id number] #### MARCUS Kenyono [facility] [place] [address] cbc w/ auto diff on 2019-03-11 Erythrocyte distribution 13.9 11.5-14.5 % Normal 03-11 [facility] width (RBC) [Ratio] Health System (05048) Comment: Performed By: #### [id number] #### MARCUS WilcoxHemo [facility] [place] [address] Hematocrit (Bld) [Volume 37.4 36.0-48.0 % Normal 03-11 [facility] fraction] Health Sys tem (44438) Comment: Performed By: #### [id number] #### MARCUS WilcoxHemo [facility] [place] [address] Hemoglobin (Bld) 12.4 12.0-16.0 G/DL Normal 03-11-2019 [facility] [Mass/Vol] Health Sy [facility] (14303) Comment: Performed By: #### [id number] #### MARCUS WilcoxHemo [facility] [place] [address] MCH (RBC) [Entitic mass] 30.2 27.0-31.0 pg Normal 03-11 [facility] () Comment: Performed By: #### [id number] #### MARCUS WilcoxKarlo [address] [place] [address] MCHC (RBC) [Mass/Vol] 33.1 33.0-37.0 G/DL Normal 03-11-20 19 [facility] () Comment: Performed By: #### [id number] #### MARCUS JeriHemo [facility] [place] [address] MCV (RBC) [Entitic vol] 91.2 78.0-100.0 fL Normal 03-11 [facility] (34469) Comment: Performed By: #### [id number] #### MARCUS JeriHemo [address] [place] [address] Platelet mean volume 8.1 7.4-11.0 fL Normal 9 [facility] (Bld) [Entitic vol] System (42356) Comment: Performed By: #### [id number] #### MARCUS WilcoxHemo [facility] [place] [address] Platelets (Bld) [#/Vol] 120 130-400 E3/mcL Low 2018 [facility] () Comment: Performed By: #### [id number] #### MARCUS JeriHemo [address] [place] [address] RBC (Bld) [#/Vol] 4.11 3.90-5.40 E6/mcL Normal 03-11-2019 [facility] () Comment: Performed By: #### [id number] #### MARCUSShawn WilcoxHemo [facility] [place] [address] WBC (Bld) [#/Vol] 3.6 3.6-11.0 E3/mcL Normal 03-11-[address] [facility] () Comment: Performed By: #### [id number] #### MARCUS RemHemo [address] [place] [address] bmp on 2019-03-11 Anion gap [Moles/Vol] 11 10-20 mEq/L Normal 03-11-20 [facility] () Comment: Performed By: #### [id number] #### MARCUS RemHemo [address] [place] [address] Calcium [Mass/Vol] 8.4 8.6-10.3 mg/dL Low 03-11-2019 [facility] (09439) Comment: Performed By: #### [id number] #### MARCUS RemHemo [address] [place] [address] Chloride [Moles/Vol] 110 98-107 mEq/L High [facility] () Comment: Performed By: #### [id number] #### MARCUS RemHemo [address] [place] [address] CO2 [Moles/Vol] 19.0 21.0-32.0 mEq/L Low 03-11-2019 [facility] (34892) Comment: Performed By: #### [id number] #### MARCUS RemHemo [address] [place] [address] Creatinine [Mass/Vol] 1.2 0.5-1.1 mg/dL High 03-11-20 [facility] ( 000) Comment: Performed By: #### [id number] #### MARCUS RemHemo [address] [place] [address] Glucose [Mass/Vol] 88 70-99 mg/dL Normal 03-11-2019 [facility] (75093) Comment: Performed By: #### [id number] #### MARCUS RemHemo [address] [place] [address] Potassium [Moles/Vol] 3.8 3.5-5.3 mEq/L Normal 03-11-20 [facility] ( 000) Comment: Performed By: #### [id number] #### MARCUS RemHemo [address] [place] [address] Sodium [Moles/Vol] 136 136-145 mEq/L Normal 03-11-2019 [facility] () Comment: Performed By: #### [id number] #### MARCUS WilcoxHemo [address] [place] [address] Urea nitrogen [Mass/Vol] 12 6-23 mg/dL Normal 03-11 [facility] () Comment: Performed By: #### [id number] #### MARCUSShawn Wilcox[address] [address] Urea nitrogen/Creatinine 10.0 5.4-30.0 ratio Normal 03-11 [facility] [Mass ratio] [facility] (11588) Comment: Performed By: #### [id number] #### [address] [address] auto diff on 03-11 Basophils (Bld) [#/Vol] 0.0 0.0-0.2 E3/mcL Normal 2018 [facility] () Comment: Order Comment: Order Added b y Discern Expert. Performed By: #### [id number] #### MARCUS WilcoxHemo [address] [place] [address] Basophils/100 WBC (Bld) 0.3 0.0-2.0 % Normal 2018 [facility] () Comment: Order Comment: Order Added b y Discern Expert. Performed By: #### [id number] #### MARCUS WilcoxHemo [address] [place] [address] Eos Absolute 0.1 0.0-0.7 E3/mcL Normal 03-11-2019 [facility] () Comment: Order Comment: Order Added b y Discern Expert. Performed By: #### [id number] #### [facility] [address] [place] [address] Eosinophils/100 WBC (Bld) 3.7 0.0-11.0 % Normal 02-16 [facility] () Comment: Order Comment: Order Added b y Discern Expert. Performed By: #### [id number] #### [facility] [address] [place] [address] Lymphocytes (Bld) [#/Vol] 1.0 1.2-3.4 E3/mcL Low 02-16 [facility] (00 000) Comment: Order Comment: Order Added erma lizama Discern Expert. Performed By: #### [id number] #### MARCUS WilcoxHemo [address] [place] [address] Lymphocytes/100 WBC (Bld) 28.2 20.0-55.0 % Normal 02-16 [facility] (57218) Comment: Order Comment: Order Added b y Discern Expert. Performed By: #### [id number] #### MARCUS JeriHemo [address] [place] [address] [place] Absolute 0.3 0.0-0.7 E3/mcL Normal 03-11-2019 [facility] (91999) Comment: Order Comment: Order Added b y Discern Expert. Performed By: #### [id number] #### MARCUSShawn WilcoxHemo [address] [place] [address] Monocytes/100 WBC (Bld) 8.9 0.0-10.0 % Normal 2018 [facility] (00 000) Comment: Order Comment: Order Added b y Discern Expert. Performed By: #### [id number] #### MARCUS WilcoxHemo [facility] [place] [address] Neutro Absolute 2.1 1.4-6.5 E3/mcL Normal 03-11-2019 [facility] (40925) Comment: Order Comment: Order Added b y Discern Expert. Performed By: #### [id number] #### MARCUSShawn WilcoxHemo [address] [place] [address] Neutro Auto 58.9 37.0-75.0 % Normal 03-11-2019 [facility] (33760) Comment: Order Comment: Order Added b y Discern Expert. Performed By: #### [id number] #### MARCUSShawn WilcoxHemo [address] [place] [address] No panel information on 2019-03-08 Ammonia mass conc 30 OTH - OTH ug/dL 03-08-2019 [facility] ([facility]) (08216) Interpretation and Normal 03-08-2019 [facility] review of laboratory (80575) results Interpretation and Normal 03-08-2019 [facility] review of laboratory (44265) results Thyrotropin Qn 2.54 OTH - OTH m[IU]/L 03-08-2019 [facility] (59614) Albumin mass conc 3.6 3.2 - 5.2 g/dL 03-08-2019 [facility] (30903) ALP enzyme act/vol 99 40 - 150 U/L 03-08-2019 [facility] (54471) ALT enzyme act/vol 31 14 - 65 U/L 03-08-2019 [facility] (19702) Anion gap molar conc 12 10 - 20 mmol/L 9 [facility] (71795) AST enzyme act/vol 29 0 - 45 U/L 03-08-2019 [facility] (28207) Bilirubin mass conc 0.6 0 - 1.3 mg/dL 03-08-2019 [facility] (66093) Calcium mass conc 8.4 8.4 - mg/dL 03-08-2019 [facility] 10.2 (52745) Chloride molar conc 114 98 - 108 mmol/L High 03-08-2019 [facility] (36565) Creatinine mass conc 1.31 0.4 - 1.1 mg/dL High 9 [facility] (61308) GFR/1.73 sq M The eGFR should 03-08-2019 [facility] predicted among be used for (4 9652) non-blacks MDRD vol monitoring renal rate/area (S/P/Bld) function only and not for medication dosing. GFR/1.73 sq 49 >=60 [facility]/1. (44376) vol rate/area 73 m2 (S/P/Bld) Glucose mass conc 94 65 - 99 mg/dL 03-08-2019 [facility] (79847) HCO3 molar conc 20 21 - 32 mmol/L Low 03-08-2019 [facility] (91867) Interpretation and Abnormal 03-08-2019 [facility] review of laboratory (48217) results Potassium molar conc 4.1 3.5 - 5.1 mmol/L 9 [facility] (45751) Protein mass conc 7.2 6 - 8 g/dL 03-08-2019 [facility] (07848) Sodium molar conc 142 135 - 145 mmol/L 03-08-2019 [facility] (86429) Urea nitrogen mass 16 8 - 25 mg/dL 03-08-2019 [facility] conc (08602) Urea 12.2 OTH - OTH mg/mg [facility]-08-[facility]/Creatinine (93354) mass ratio Valproate mass conc 4 OTH - OTH ug/mL Low 03-08-2019 [facility] (49740) egfr on 2019-02-24 GFR/1.73 sq M predicted 43 mL/min/1.73 m2 Normal 0 02-24-2019 [facility] among non-blacks [facility] (35540) (S/P/Bld) [Vol rate/Area] Comment: Order Comment: Order Added erma Aldana Expert. Performed By: #### [id number] #### MARCUS Kenyono [facility] [place] [address] GFR/1.73 sq M predicted 52 mL/min/1.73 m2 Normal 0 02-24-2019 [facility] among non-blacks [facility] (85539) (S/P/Bld) [Vol rate/Area] Comment: Order Comment: Order Added erma Aldana Expert. Performed By: #### [id number] #### MARCUS WilcoxHemo [address] [place] [address] bmp on 2019-02-24 Anion gap [Moles/Vol] 12 10-20 mEq/L Normal 02-25-20 19 [facility] (00 000) Comment: Performed By: #### [id number] #### MARCUS WilcoxHemo [facility] [place] [address] Calcium [Mass/Vol] 8.9 8.6-10.3 mg/dL Normal 02-24-2019 [facility] (00 000) Comment: Performed By: #### [id number] #### MARCUS WilcoxHemo [address] [place] [address] Chloride [Moles/Vol] 110 98-107 mEq/L High 9 [facility] (00 000) Comment: Performed By: #### [id number] #### MARCUS RemHemo [address] [place] [address] CO2 [Moles/Vol] 21.0 21.0-32.0 mEq/L Normal 02-24-2019 [facility] (00 000) Comment: Performed By: #### [id number] #### MARCUSShawn WilcoxHemo [facility] [place] [address] Creatinine [Mass/Vol] 1.3 0.5-1.1 mg/dL High 02-25-20 [facility] (00 000) Comment: Performed By: #### [id number] #### MARCUSShawn WilcoxHemo [facility] [place] [address] Glucose [Mass/Vol] 89 70-99 mg/dL Normal 02-24-2019 [facility] (82561) Comment: Performed By: #### [id number] #### MARCUSShawn WilcoxHemo [facility] [place] [address] Potassium [Moles/Vol] 4.5 3.5-5.3 mEq/L Normal 02-25-20 [facility] () Comment: Performed By: #### [id number] #### MARCUSShawn WilcoxHemo [address] [place] [address] Sodium [Moles/Vol] 138 136-145 mEq/L Normal 02-24-2019 [facility] ( 000) Comment: Performed By: #### [id number] #### MARCUS Kostaso [address] [place] [address] Urea nitrogen [Mass/Vol] 15 6-23 mg/dL Normal 02-24 [facility] (00 000) Comment: Performed By: #### [id number] #### MARCUSShawn WilcoxHemo [facility] [place] [address] Urea nitrogen/Creatinine 11.5 5.4-30.0 ratio Normal 02-24 [facility] [Mass ratio] [facility] (66626) Comment: Performed By: #### [id number] #### MARCUS JeriHemo [facility] [place] [address] zzplt morph on 2018 Platelet morphology finding NORMAL Normal [facility] (d) System (00 000) Comment: Performed By: #### [id number] #### MARCUSShawn WilcoxHemo [address] [place] [address] Platelets (Bld) [#/Vol] DECREASED Normal 2018 [facility] (00 000) Comment: Performed By: #### [id number] #### MARCUS Kenyono [address] [place] [address] manual diff on 2018 Band form neutrophils/100 WBC 9 0-1 High 02-23-2019 [facility] (d) System (00 000) Comment: Order Comment: Order Added b y Discern Expert. Performed By: #### [id number] #### MARCUS WilcoxHemo [address] [place] [address] Basophil Man 0 0-1 % Normal 02-23-2019 [facility] (20231) Comment: Order Comment: Order Added b y Discern Expert. Performed By: #### [id number] #### MARCUS WilcoxHemo [address] [place] [address] Eosinophils/100 WBC (Bld) 2 0-5 % Normal [facility] (27423) Comment: Order Comment: Order Added b y Discern Expert. Performed By: #### [id number] #### MARCUS WilcoxHemo [address] [place] [address] Lymphocytes/100 WBC (Bld) 33 14-48 % Normal [facility] (00 000) Comment: Order Comment: Order Added b y Discern Expert. Performed By: #### [id number] #### MARCUS WilcoxHemo [address] [place] [address] Fortine Man 3 0-0 % High 02-23-2019 [facility] (69714) Comment: Order Comment: Order Added b y Discern Expert. Performed By: #### [id number] #### MARCUS RemHemo [address] [place] [address] Monocyte Man 11 1-11 % Normal 02-23-2019 [facility] (48002) Comment: Order Comment: Order Added b y Discern Expert. Performed By: #### [id number] #### MARCUS RemHemo [address] [place] [address] Myelo Man 2 0-0 % High 02-23-2019 [facility] (16149) Comment: Order Comment: Order Added erma y Discern Expert. Performed By: #### [id number] #### MARCUS WilcoxKarlo [address] [place] [address] Ovalocytes 1+ Normal 02-23-2019 [facility] (44847) Comment: Order Comment: Order Added b y Discern Expert. Performed By: #### [id number] #### MARCUSShawn Luong [facility] [place] [id number] Polychromasia 1+ Normal 02-23-2019 [facility] (37965) Comment: Order Comment: Order Added b y Discern Expert. Performed By: #### [id number] #### MARCUSShawn Luong [facility] [place] [id number] RBC morphology finding SEE MORPHOLOGY Normal [facility] ([facility] tem (83900) Comment: Order Comment: Order Added erma y Discern Expert. Performed By: #### [id number] #### MARCUS JeriRahul [address] [place], [place] [id number] Segs Man 40 37-75 % Normal 02-23-2019 [facility] (63468) Comment: Order Comment: Order Added b y Discern Expert. Performed By: #### [id number] #### MARCUS Kenyoncorky [address] [place] [address] lamotrigine lvl on 2019-02-23 Lamotrigine Lvl None Detected 2.0-20.0 Normal 02-23-2019 [facility] (00 000) Comment: Result Comment: This test wa s developed and its performance characteristics determined by [facility]. It guzman s not been cleared or approved by the Food and Nabeel g Administration. Detection Limit = 1.0 Performed At: [facility] [id number] Aramis Sharpe MD Performed By: #### [id number] #### MARCUS Kenyono [facility] [place] [phone] egfr on 2019-02-23 GFR/1.73 sq M predicted 50 mL/min/1.73 m2 Normal 0 02-23-2019 [facility] among non-blacks [facility] (34809) (S/P/Bld) [Vol rate/Area] Comment: Order Comment: Order Added b dl Aldana Expert. Performed By: #### [id number] #### MARCUS WilcoxKarlo [facility] [place] [address] GFR/1.73 sq M predicted 60 mL/min/1.73 m2 Normal 0 02-23-2019 [facility] among non-blacks [facility] (29252) (S/P/Bld) [Vol rate/Area] Comment: Order Comment: Order Added erma Aldana Expert. Performed By: #### [id number] #### MARCUSShawn Kenyono [facility] [place] [address] cmp on 2019-02-23 Albumin [Mass/Vol] 3.3 3.4-5.0 gm/dL Low 02-23-2019 [facility] (71319) Comment: Performed By: #### [id number] #### MARCUS Kostaso [address] [place] [address] Albumin/Globulin [Mass 1.5 1.1-1.9 ratio Normal [facility]] Health Sys tem (86627) Comment: Performed By: #### [id number] #### MARCUS WilcoxHemo [facility] [place] [address] Alk Phos 57 33-110 Int._Unit/L Normal 02-23-2019 [facility] (48938) Comment: Performed By: #### [id number] #### MARCUS JeriHemo [facility] [place] [address] ALT [Catalytic 12 7-45 Int._Unit/L Normal 02-23-2019 [facility] (49879) Comment: Performed By: #### [id number] #### MARCUS JeriHemo [address] [place] [address] Anion gap [Moles/Vol] 10 10-20 mEq/L Normal 02-24-20 19 [facility] (00 000) Comment: Performed By: #### [id number] #### MARCUS WilcoxHemo [address] [place] [address] AST [Catalytic 20 9-39 Int._Unit/L Normal 02-23-2019 [facility] activity/[facility] (15846) Comment: Performed By: #### [id number] #### MARCUS RemHemo [address] [place] [address] Bili Total 0.33 0.00-1.20 mg/dL Normal 02-23-2019 [facility] (26730) Comment: Performed By: #### [id number] #### MARCUS JeriHemo [address] [place] [address] Calcium [Mass/Vol] 8.3 8.6-10.3 mg/dL Low 02-23-2019 [facility] (08043) Comment: Performed By: #### [id number] #### MARCUS JeriHemo [address] [place] [address] Chloride [Moles/Vol] 114 98-107 mEq/L High 9 [facility] () Comment: Performed By: #### [id number] #### MARCUS RemHemo [facility] [place] [address] CO2 [Moles/Vol] 22.0 21.0-32.0 mEq/L Normal 02-23-2019 [facility] (00 000) Comment: Performed By: #### [id number] #### MARCUS RemHemo [facility] [place] [address] Creatinine [Mass/Vol] 1.2 0.5-1.1 mg/dL High 02-24-20 19 [facility] (00 000) Comment: Performed By: #### [id number] #### MARCUS RemHemo [facility] [place] [address] Globulin (S) [Mass/Vol] 2.0 2.0-4.0 G/DL Normal 2018 [facility] (00 000) Comment: Performed By: #### [id number] #### MARCUS RemHemo [address] [place] [address] Glucose [Mass/Vol] 86 70-99 mg/dL Normal 02-23-2019 [facility] (38310) Comment: Performed By: #### [id number] #### MARCUS RemHemo [address] [place] [address] Potassium [Moles/Vol] 4.4 3.5-5.3 mEq/L Normal 02-24-20 19 [facility] (00 000) Comment: Performed By: #### [id number] #### MARCUS WilcoxHemo [address] [place] [address] Protein [Mass/Vol] 5.5 6.4-8.2 gm/dL Low 02-23-2019 [facility] (67194) Comment: Performed By: #### [id number] #### MARCUS JeriHemo [facility] [place] [address] Sodium [Moles/Vol] 141 136-145 mEq/L Normal 02-23-2019 [facility] (00 000) Comment: Performed By: #### [id number] #### MARCUS JeriHemo [facility] [place] [address] Urea nitrogen [Mass/Vol] 11 6-23 mg/dL Normal 02-23 [facility] (00 ) Comment: Performed By: #### [id number] #### MARCUS JeriHemo [address] [place] [address] Urea nitrogen/Creatinine 9.2 5.4-30.0 ratio Normal 02-23 [facility] [Mass ratio] [facility] (78855) Comment: Performed By: #### [id number] #### MARCUS JeriHemo [facility] [place] [address] cbc w/ auto diff on 2019-02-23 Erythrocyte distribution 14.7 11.5-14.5 % High 02-23 [facility] width (RBC) [Ratio] Health System (48071) Comment: Performed By: #### [id number] #### MARCUS JeriHemo [facility] [place] [address] Hematocrit (Bld) [Volume 35.2 36.0-48.0 % Low 02-23 [facility]] System (00 000) Comment: Performed By: #### [id number] #### MARCUS JeriHemo [facility] [place] [address] Hemoglobin (Bld) 11.7 12.0-16.0 G/DL Low 02-23-2019 [facility] [Mass/Vol] Health Sy stem (90424) Comment: Performed By: #### [id number] #### MARCUS WilcoxKarlo [facility] [place] [address] MCH (RBC) [Entitic mass] 31.2 27.0-31.0 pg High 02-23 [facility] ( 000) Comment: Performed By: #### [id number] #### MARCUS WilcoxKarlo [facility] [place] [address] MCHC (RBC) [Mass/Vol] 33.2 33.0-37.0 G/DL Normal 02-24-20 19 [facility] () Comment: Performed By: #### [id number] #### MARCUS JeriHemo [facility] [place] [address] MCV (RBC) [Entitic vol] 93.8 78.0-100.0 fL Normal 02-23 [facility] Sys tem (36770) Comment: Performed By: #### [id number] #### MARCUS WilcoxHemo [address] [place] [address] Platelet mean volume 7.6 7.4-11.0 fL Normal 9 [facility] (Bld) [Entitic vol] System (37701) Comment: Performed By: #### [id number] #### MARCUS WilcoxHemo [facility] [place] [address] Platelets (Bld) [#/Vol] 56 130-400 E3/mcL Low 2018 [facility] () Comment: Performed By: #### [id number] #### MARCUS JeriHemo [address] [place] [address] RBC (Bld) [#/Vol] 3.75 3.90-5.40 E6/mcL Low 02-23-2019 [facility] () Comment: Performed By: #### [id number] #### MARCUSShawn WilcoxHemo [facility] [place] [address] WBC (Bld) [#/Vol] 2.4 3.6-11.0 E3/mcL Low 02-23-2019 [facility] (03430) Comment: Performed By: #### [id number] #### MARCUS Kenyono [facility] [place] [address] c urine on C Urine Final Report: Rare Normal Normal 05-0 [facility] skin joe isolated System (25588) Comment: Performed By: #### [id number] #### MARCUS Kenyono [facility] [place] [address] ammonia on Ammonia (P) [Mass/Vol] 53 16-53 mcmol/L Normal 019 [facility] (00 000) Comment: Performed By: #### [id number] #### MARCUS Kenyono [address] [place] [address] .manual abs on 2018 Basophil Abs Man 0.0 0.0-0.2 10x3/ Normal 02-23-2019 [facility] (04875) Comment: Order Comment: Order Added b y Discern Expert. Performed By: #### [id number] #### MARCUS Kostascorky [address] [place] [address] Eos Abs Man 0.0 0.0-0.5 10x3/ Normal 02-23-2019 [facility] (30874) Comment: Order Comment: Order Added b y Discern Expert. Performed By: #### [id number] #### MARCUS Kenyono [address] [place] [address] Lymph Abs Man 0.8 1.2-3.4 10x3/ Low 02-23-2019 [facility] (65014) Comment: Order Comment: Order Added b y Discern Expert. Performed By: #### [id number] #### MARCUS Kostaso [address] [place] [address] [place] Abs Man 0.3 0.0-0.7 10x3/ Normal 02-23-2019 [facility] (57434) Comment: Order Comment: Order Added b y Discern Expert. Performed By: #### [id number] #### MARCUS Kostaso [address] [place], [place] [address] Segs Abs Man 1.0 1.4-6.5 10x3/ Low 02-23-2019 [facility] (65128) Comment: Order Comment: Order Added b y Discern Expert. Performed By: #### [id number] #### MARCUSShawn WilcoxHemo [facility] [place] [address] zzplt morph on 2018 Platelet morphology finding ENLARGED Normal [facility] (d) System (00 000) Comment: Performed By: #### [id number] #### MARCUSShawn Kenyono [facility] [place] [address] Platelets (Bld) [#/Vol] DECREASED Normal 2018 [facility] (00 000) Comment: Performed By: #### [id number] #### MARCUS JeriHemo [address] [place] [address] valproic acid on 05-03-08 Valpro Acid Lvl 75 50-100 microgram/mL Normal 02-22-2019 [facility] (00 000) Comment: Performed By: #### [id number] #### MARCUS Jeri[address] [address] phosphorus on 02-22 Phosphate [Mass/Vol] 2.7 2.5-4.9 mg/dL Normal 9 [facility] (00 000) Comment: Performed By: #### [id number] #### MARCUS Kostaso [address] [place] [address] manual diff on 2018 Anisocytosis Ql (Bld) 1+ Normal 02-23-20 [facility] (03739) Comment: Order Comment: Order Added erma y Discern Expert. Performed By: #### [id number] #### MARCUSShawn Luong [address] [place] [address] Basophil Man 0 0-1 % Normal 02-22-2019 [facility] (36258) Comment: Order Comment: Order Added b y Discern Expert. Performed By: #### [id number] #### MARCUSShawn Kenyono [address] [place] [address] Eosinophils/100 WBC (Bld) 0 0-5 % Normal 05-0 [facility] (01478) Comment: Order Comment: Order Added b y Discern Expert. Performed By: #### [id number] #### MARCUS Kenyono [address] [place] [address] Lymphocytes/100 WBC (d) 51 14-48 % High 05- 8-2018 [facility] (48843) Comment: Order Comment: Order Added erma Aldana Expert. Performed By: #### [id number] #### MARCUS Kenyono [address] [place] [address] Monocyte Man 9 1-11 % Normal 02-22-2019 [facility] (56483) Comment: Order Comment: Order Added b dl Discern Expert. Performed By: #### [id number] #### MARCUS JeriRahul [facility] [place] [address] RBC morphology finding SEE MORPHOLOGY Normal [facility] ([facility] (97872) Comment: Order Comment: Order Added erma Aldana Expert. Performed By: #### [id number] #### MARCUS Kostaso [address] [place] [address] Segs Man 40 37-75 % Normal 02-22-2019 [facility] (48566) Comment: Order Comment: Order Added erma Aldana Expert. Performed By: #### [id number] #### MARCUS Kenyono [address] [place] [address] magnesium on 08 Magnesium [Mass/Vol] 1.8 1.6-2.4 mg/dL Normal 9 [facility] (00 000) Comment: Performed By: #### [id number] #### MARCUSShawn Kenyon[address] [address] hgba1c on 8 HbA1c ([facility]) [Mass fraction] 5.1 4.0-6.3 % Normal [facility] (00 000) Comment: Performed By: #### [id number] #### MARCUSShawn Kenyono [address] [place], [place] [address] gases - blood on 05-03-08 Allens Test. Normal 02-22-2019 [facility] (40328) Comment: Performed By: #### [id number] #### [facility] [address] [place], [place] [address] Base Excess. -9 -2-3 mmol/L Low 02-22-2019 [facility] (61435) Comment: Performed By: #### [id number] #### MARCUS RemHemo [facility] [place] [address] CO2 Tot. 17 22-28 mmol/L Low 02-22-2019 [facility] (79031) Comment: Performed By: #### [id number] #### MARCUS RemHemo [facility] [place] [address] CPAP/PEEP(cmH2O). NOT CALCULATED Normal 019 [facility] (00 000) Comment: Performed By: #### [id number] #### MARCUS RemHemo [facility] [place] [address] FiO2. 21 % Normal 02-22-2019 [facility] (03270) Comment: Performed By: #### [id number] #### MARCUS RemHemo [facility] [place] [address] HCO#. 16.3 22.0-26.0 mmol/L Low 02-22-2019 [facility] (62603) Comment: Performed By: #### [id number] #### MARCUS RemHemo [facility] [place] [address] O2 Devices. Room Air Normal 02-22-2019 [facility] (79526) Comment: Performed By: #### [id number] #### MARCUS RemHemo [facility] [place] [address] OPID. [id number] Normal 02-22-2019 [facility] (83176) Comment: Performed By: #### [id number] #### MARCUS RemHemo [facility] [place] [phone] Oxygen (Bld) [Partial 101 80-100 mmHg High 02-23-20 [facility]] System (00 000) Comment: Performed By: #### [id number] #### MARCUS RemHemo [facility] [place] [phone] Oxygen saturation in Blood 98 95-100 % Normal [facility] (00 000) Comment: Performed By: #### [id number] #### [place] [address] P CO2. 28.4 35.0-45.0 mmHg Low 02-22-2019 [facility] (14427) Comment: Performed By: #### [id number] #### [place] [address] Patient Temp. NOT CALCULATED Normal 02-22-2019 [facility] (26618) Comment: Performed By: #### [id number] #### [place] [address] pH (Bld) 7.367 7.350-7.450 Normal 02-22-2019 [facility] (38879) Comment: Performed By: #### [id number] #### [place] [address] PSV/IP(cmH2O). NOT CALCULATED Normal 02-22-2019 [facility] (34711) Comment: Performed By: #### [id number] #### [place] [address] Sample Site. R brach Normal 02-22-2019 [facility] (07740) Comment: Performed By: #### [id number] #### [place] [address] Sample Type. Arterial Normal 02-22-2019 [facility] (97438) Comment: Performed By: #### [id number] #### [place] [address] Set RR(b/min). NOT CALCULATED Normal 02-22-2019 [facility] (45203) Comment: Performed By: #### [id number] #### [facility]US [facility] Hospital[facility] [address] [place] [address] Tidal Volume(mL). NOT CALCULATED Normal 019 [facility] (00 000) Comment: Performed By: #### [id number] #### [facility] [address] [place] [address] Vent Mode. NOT CALCULATED Normal 02-22-2019 [facility] (35435) Comment: Performed By: #### [id number] #### MARCUS Kenyono [address] [place] [address] egfr on 2019-02-22 GFR/1.73 sq M predicted 56 mL/min/1.73 m2 Normal 0 02-22-2019 [facility] among non-blacks [facility] (77341) (S/P/Bld) [Vol rate/Area] Comment: Order Comment: Order added erma Aldana Expert. Performed By: #### [id number] # ### MARCUS JeriHemo [facility] [place] [address] GFR/1.73 sq M predicted 46 mL/min/1.73 m2 Normal 0 02-22-2019 [facility] among non-blacks [facility] (37930) (S/P/Bld) [Vol rate/Area] Comment: Order Comment: Order added erma Aldana Expert. Performed By: #### [id number] # ### MARCUS JeriHemo [address] [place] [address] cbc w/ auto diff on 2019-02-22 Erythrocyte distribution 15.0 11.5-14.5 % High 02-22 [facility] width (RBC) [Ratio] Health System (65749) Comment: Performed By: #### [id number] #### MARCUS JeriHemo [facility] [place] [address] Hematocrit (Bld) [Volume 35.9 36.0-48.0 % Low 02-22 [facility] Health fraction] System (00 000) Comment: Performed By: #### [id number] #### MARCUS JeriHemo [facility] [place] [address] Hemoglobin (Bld) 11.8 12.0-16.0 G/DL Low 02-22-2019 [facility] [Mass/Vol] Health Sy stem (87175) Comment: Performed By: #### [id number] #### MARCUSSahwn WilcoxHemo [facility] [place] [address] MCH (RBC) [Entitic mass] 31.1 27.0-31.0 pg High 02-22 [facility] (00 000) Comment: Performed By: #### [id number] #### [facility]ARCUS [facility] [place] [address] MCHC (RBC) [Mass/Vol] 32.9 33.0-37.0 G/DL Low 02-23-20 [facility] (00 000) Comment: Performed By: #### [id number] #### MARCUS WilcoxHemo [facility] [place] [address] MCV (RBC) [Entitic vol] 94.6 78.0-100.0 fL Normal 02-22 [facility] Sys tem (45971) Comment: Performed By: #### [id number] #### MARCUS WilcoxHemo [facility] [place] [address] Platelet mean volume 7.9 7.4-11.0 fL Normal 9 [facility] (Bld) [Entitic vol] System (74343) Comment: Performed By: #### [id number] #### MARCUS WilcoxHemo [facility] [place] [address] Platelets (Bld) [#/Vol] 62 130-400 E3/mcL Low 2018 [facility] (00 000) Comment: Performed By: #### [id number] #### MARCUS WilcoxHemo [facility] [place] [address] RBC (Bld) [#/Vol] 3.79 3.90-5.40 E6/mcL Low 02-22-2019 [facility] (00 000) Comment: Performed By: #### [id number] #### MARCUS WilcoxHemo [facility] [place] [address] WBC (Bld) [#/Vol] 2.8 3.6-11.0 E3/mcL Low 02-22-2019 [facility] (02436) Comment: Performed By: #### [id number] #### MARCUS JeriHemo [address] [place] [address] bmp on 2019-02-22 Anion gap [Moles/Vol] 10 10-20 mEq/L Normal 02-23-20 [facility] (00 000) Comment: Performed By: #### [id number] # ### MARCUS WilcoxHemo [address] [place] [address] Calcium [Mass/Vol] 7.7 8.6-10.3 mg/dL Low 02-22-2019 [facility] (55822) Comment: Performed By: #### [id number] # ### MARCUS WilcoxHemo [address] [place] [address] Chloride [Moles/Vol] 115 98-107 mEq/L High 9 [facility] (00 000) Comment: Performed By: #### [id number] # ### MARCUS WilcoxHemo [address] [place] [address] CO2 [Moles/Vol] 20.0 21.0-32.0 mEq/L Low 02-22-2019 [facility] (89723) Comment: Performed By: #### [id number] # ### MARCUS WilcoxHemo [address] [place] [address] Creatinine [Mass/Vol] 1.2 0.5-1.1 mg/dL High 02-23-20 19 [facility] (00 000) Comment: Performed By: #### [id number] # ### MARCUS JeriHemo [address] [place] [address] Glucose [Mass/Vol] 89 70-99 mg/dL Normal 02-22-2019 [facility] (72722) Comment: Performed By: #### [id number] # ### MARCUS WilcoxHemo [facility] [place] [address] Potassium [Moles/Vol] 4.3 3.5-5.3 mEq/L Normal 02-23-20 19 [facility] (00 000) Comment: Performed By: #### [id number] # ### MARCUS RemHemo [facility] [place] [address] Sodium [Moles/Vol] 141 136-145 mEq/L Normal 02-22-2019 [facility] (00 000) Comment: Performed By: #### [id number] # ### MARCUS RemHemo [address] [place] [address] Urea nitrogen [Mass/Vol] 14 6-23 mg/dL Normal 02-22 [facility] (00 000) Comment: Performed By: #### [id number] # ### MARCUS RemHemo [address] [place] [address] Urea nitrogen/Creatinine 11.7 5.4-30.0 ratio Normal 02-22 [facility] [Mass ratio] [facility] (02719) Comment: Performed By: #### [id number] # ### MARCUS Kenyono [address] [place] [address] .manual abs on 2018 Basophil Abs Man 0.0 0.0-0.2 10x3/ Normal 02-22-2019 [facility] (26420) Comment: Order Comment: Order Added b y Discern Expert. Performed By: #### [id number] #### MARCUSShawn WilcoxKarlo [address] [place] [address] Eos Abs Man 0.0 0.0-0.5 10x3/ Normal 02-22-2019 [facility] (84148) Comment: Order Comment: Order Added b y Discern Expert. Performed By: #### [id number] #### MARCUSShawn WilcoxKarlcorky [address] [place] [address] Lymph Abs Man 1.4 1.2-3.4 10x3/ Normal 02-22-2019 [facility] (01411) Comment: Order Comment: Order Added b y Discern Expert. Performed By: #### [id number] #### MARCUSShawn WilcoxHemo [address] [place] [address] Lassen Abs Man 0.3 0.0-0.7 10x3/ Normal 02-22-2019 [facility] (45516) Comment: Order Comment: Order Added b y Discern Expert. Performed By: #### [id number] #### MARCUS Kostaso [address] [place] [address] Segs Abs Man 1.1 1.4-6.5 10x3/ Low 02-22-2019 [facility] (38349) Comment: Order Comment: Order Added b y Discern Expert. Performed By: #### [id number] #### [place] [address] zzplt morph on 2018 Platelet morphology finding ENLARGED Normal [facility] (d) System (00 000) Comment: Performed By: #### [id number] #### MARCUS Urinalysis Automated Suggs bsection [address] [place] [address] Platelets (Bld) [#/Vol] DECREASED Normal 2018 [facility] (00 000) Comment: Performed By: #### [id number] #### MARCUS Urinalysis Automated Suggs bsection [address] [place] [address] valproic acid on 05-03-07 Valpro Acid Lvl 102 50-100 microgram/mL Critically 02-21-2019 Islam abnormal [facility] (00 000) Comment: Result Comment: Critical Res ult (s) Called to and read back by: XUAN GARCIA at: 02/21/2019 18:51 :29 by:ZOFIA Performed By: #### [id number] # ### MARCUS RemHemo [address] [place] [address] Valpro Acid Lvl 101 50-100 microgram/mL Critically 02-21-2019 [facility] (00 000) Comment: Result Comment: Critical Res ult (s) Called to and read back by: XUAN GARCIA at: 02/21/2019 13:43 :39 by:RAY Performed By: #### [id number] # ### MARCUS Microbiology Subsection [facility] [place] [id number] ua complete on 2018 Color (U) Straw Yellow Normal 02-21-2019 [facility] (91825) Comment: Order Comment: Straight Cath as needed Performed By: #### [id number] # ### MARCUS Microbiology Subsection [address] [place] [address] Glucose (U) [Mass/Vol] Negative Negative mg/dL Normal 019 [facility] tem (10497) Comment: Order Comment: Straight Cath as needed Performed By: #### [id number] # ### MARCUS Microbiology Subsection [address] [place] [address] Ketones Ql (U) Negative Negative Normal 02-21-2019 [facility] (74303) Comment: Order Comment: Straight Cath as needed Performed By: #### [id number] # ### MARCUS Microbiology Subsection [address] [place] [address] RBC (U) [#/Vol] 0-3 0-3 Normal 02-21-2019 [facility] (81421) Comment: Order Comment: Straight Cath as needed Performed By: #### [id number] # ### MARCUS Microbiology Subsection [address] [place] [address] UA Blood Negative Negative Normal 02-21-2019 [facility] (88468) Comment: Order Comment: Straight Cath as needed Performed By: #### [id number] # ### MARCUS Microbiology Subsection [address] [place] [address]641 UA Bacteria Trace None Abnormal 02-21-2019 [facility] (42039) Comment: Order Comment: Straight Cath as needed Performed By: #### [id number] # ### MARCUS Microbiology Subsection [address] [place] [address] UA Clarity SltCloudy Clear Abnormal 02-21-2019 [facility] (34214) Comment: Order Comment: Straight Cath as needed Performed By: #### [id number] # ### MARCUS Microbiology Subsection [address] [place] [address] 55548 UA Leuk Est 1+ Negative Abnormal 02-21-2019 [facility] (22391) Comment: Order Comment: Straight Cath as needed Performed By: #### [id number] # ### MARCUS Microbiology Subsection [address] [place] [address]194 UA Mucous Trace Trace Abnormal 02-21-2019 [facility] (12778) Comment: Order Comment: Straight Cath as needed Performed By: #### [id number] # ### MARCUS Microbiology Subsection [address] [place] [address] UA Nitrite Negative Negative Normal 02-21-2019 [facility] (18021) Comment: Order Comment: Straight Cath as needed Performed By: #### [id number] # ### MARCUS Microbiology Subsection [address] [place] [address]87 UA pH 5.0 4.6-8.0 Normal 02-21-2019 [facility] (23009) Comment: Order Comment: Straight Cath as needed Performed By: #### [id number] # ### MARCUS Microbiology Subsection [address] [place] [address] 848[address] UA Protein Negative Negative Normal 02-21-2019 [facility] (76564) Comment: Order Comment: Straight Cath as needed Performed By: #### [id number] # ### MARCUS Microbiology Subsection [facility] [place] [address] UA Spec Grav 1.005 1.003-1.030 Normal 02-21-2019 [facility] (81470) Comment: Order Comment: Straight Cath as needed Performed By: #### [id number] # ### MARCUS Microbiology Subsection [facility] [place] [address] UA Squam Epithelial 5-10 0-5 Abnormal 02-21-2019 [facility] (94122) Comment: Order Comment: Straight Cath as needed Performed By: #### [id number] # ### MARCUS Microbiology Subsection [address] [place] [address] UA Urobilinogen Negative Normal 02-21-2019 [facility] (36708) Comment: Order Comment: Straight Cath as needed [...] laboratory within 24 hours. Performed By: #### [id number] # ### MARCUS Microbiology Subsection [address] [place] [address] UA WBC 0-5 0-5 Normal 02-21-2019 [facility] (00369) Comment: Order Comment: Straight Cath as needed Performed By: #### [id number] # ### MARCUS Microbiology Subsection [address] [place] [address] Urobilinogen Qn (U) Negative Negative Normal 02-21-2019 [facility] (00 000) Comment: Order Comment: Straight Cath as needed Performed By: #### [id number] # ### MARCUS Microbiology Subsection [address] [place] [address] 08003 u sodium on 2019-02 Sodium [Moles/Vol] 36 mmol/L Normal 02-21-2019 [facility] (54632) Comment: Performed By: #### [id number] # ### MARCUS Microbiology Subsection [address] [place] [address]78[address] u protein on 02-21 Protein [Mass/Vol] 4 1-14 mg/dL Normal 02-21-2019 [facility] (41435) Comment: Performed By: #### [id number] # ### MARCUS RemHemo [address] [place] [address] u creatinine on 201 06-22-07 U Creatinine 31 20-300 mg/dL Normal 02-21-2019 [facility] (58284) Comment: Performed By: #### [id number] # ### MARCUS RemHemo [address] [place] [address] u bhcg qlt on 02-21 HCG.beta subunit Qn Neg Neg m[IU]/mL Normal 02-21-2019 [facility] (00 000) Comment: Performed By: #### [id number] # ### MARCUS Microbiology Subsection [address] [place] [address] tsh on 2019-02-21 TSH Qn 4.82 0.30-5.60 mcIU/mL Normal 02-21-2019 [facility] (62730) Comment: Order Comment: With T4fr Ref kurt Performed By: #### [id number] # ### MARCUS Microbiology Subsection [address] [place] [id number] salicylate on 02-21 Salicylate Lvl <1.5 4.0-20.0 Low 02-21-2019 [facility] (42282) Comment: Performed By: #### [id number] # ### MARCUS RemHemo [address] [place] [address] morph on 2019-02-21 Polychromasia 1+ Normal 02-21-2019 [facility] (15126) Comment: Order Comment: Straight Cath as needed Performed By: #### [id number] #### MARCUS Urinalysis Automated Suggs bsection [address] [place] [address] RBC morphology finding SEE MORPHOLOGY Normal [facility] (d) Health Sys tem (70409) Comment: Order Comment: Straight Cath as needed Performed By: #### [id number] #### MARCUS Urinalysis Automated Suggs bsection [address] [place] [address] Teardrop Cell 1+ Normal 02-21-2019 [facility] (61829) Comment: Order Comment: Straight Cath as needed Performed By: #### [id number] #### MARCUS Urinalysis Automated Suggs bsection [address] [place] [address] magnesium on 02-21 Magnesium [Mass/Vol] 1.7 1.6-2.4 Int._Unit/L Normal [facility] (10001) Comment: Performed By: #### [id number] # ### MARCUS Microbiology Subsection [address] [place] [address] lipase level on 06-22-07 Lipase Lvl 37 9-82 Int._Unit/L Normal 02-21-2019 [facility] (18201) Comment: Performed By: #### [id number] #### MARCUS Urinalysis Automated Suggs bsection [address] [place], [place] [address] lactic acid on 2018 Lactate [Moles/Vol] 1.4 0.4-2.0 mmol/L Normal 02-21-2019 [facility] (00 000) Comment: Order Comment: Sepsis Reflex order due to high lactic acid level Performed By: #### [id number] # ### MARCUS RemHemo [address] [place] [address] Lactate [Moles/Vol] 2.2 0.4-2.0 mmol/L High 02-21-2019 [facility] (00 000) Comment: Performed By: #### [id number] # ### MARCUS RemHemo [facility] [place] [address] hep func panel on Albumin [Mass/Vol] 4.0 3.4-5.0 gm/dL Normal 02-21-2019 [facility] (00 000) Comment: Performed By: #### [id number] #### MARCUS Urinalysis Automated Suggs bsection [address] [place] [address] Albumin/Globulin [Mass 1.5 1.1-1.9 ratio Normal [facility] (90533) Comment: Performed By: #### [id number] #### MARCUS Urinalysis Automated Suggs bsection [address] [place] [address] Alk Phos 69 33-110 Int._Unit/L Normal 02-21-2019 [facility] (07455) Comment: Performed By: #### [id number] #### MARCUS Urinalysis Automated Suggs bsection [address] [place] [address] ALT [Catalytic 18 7-45 Int._Unit/L Normal 02-21-2019 [facility] (78624[facility] Comment: Performed By: #### [id number] #### MARCUS Urinalysis Automated Suggs bsection [address] [place] [address] AST [Catalytic 33 9-39 Int._Unit/L Normal 02-21-2019 [facility] (04451) Comment: Performed By: #### [id number] #### MARCUS Urinalysis Automated Suggs bsection [address] [place] [address] Bili Direct 0.10 0.00-0.30 mg/dL Normal 02-21-2019 [facility] (12812) Comment: Performed By: #### [id number] #### MARCUS Urinalysis Automated Suggs bsection [address] [place] [address] Bili Indirect 0.33 mg/dL Normal 02-21-2019 [facility] (78037) Comment: Result Comment: No establish ed ranges available for the indirect bilirubin Performed By: #### [id number] #### MARCUS Urinalysis Automated Suggs bsection [address] [place] [address] Bili Total 0.43 0.00-1.20 mg/dL Normal 02-21-2019 [facility] (16860) Comment: Performed By: #### [id number] #### MARCUS Urinalysis Automated Suggs bsection [address] [place] [address] Globulin (S) [Mass/Vol] 3.0 2.0-4.0 G/DL Normal 2018 [facility] (00 000) Comment: Performed By: #### [id number] #### MARCUS Urinalysis Automated Suggs bsection [address] [place] [address] Protein [Mass/Vol] 6.6 6.4-8.2 gm/dL Normal 02-21-2019 [facility] (00 000) Comment: Performed By: #### [id number] #### MARCUS Urinalysis Automated Suggs bsection [address] [place], [place] [address] gases - blood on 05-03-07 Allens Test. Positive Normal 02-21-2019 [facility] (16378) Comment: Performed By: #### [id number] # ### MARCUS RemHemo [address] [place] [address] Base Excess. -9 -2-3 mmol/L Low 02-21-2019 [facility] (28156) Comment: Performed By: #### [id number] # ### MARCUS RemHemo [facility] [place] [address] CO2 Tot. 18 22-28 mmol/L Low 02-21-2019 [facility] (89112) Comment: Performed By: #### [id number] # ### MARCUS RemHemo [address] [place] [address] CPAP/PEEP(cmH2O). 0 Normal 02-21-2019 [facility] (60625) Comment: Performed By: #### [id number] # ### MARCUS RemHemo [facility] [place] [address] FiO2. 21 % Normal 02-21-2019 [facility] (81937) Comment: Performed By: #### [id number] # ### MARCUS RemHemo [facility] [place] [address] HCO#. 17.2 22.0-26.0 mmol/L Low 02-21-2019 [facility] (42429) Comment: Performed By: #### [id number] # ### MARCUS RemHemo [facility] [place] [address] O2 Devices. Room Air Normal 02-21-2019 [facility] (64090) Comment: Performed By: #### [id number] # ### MARCUS RemHemo [address] [place] [id number] OPID. [id number] Normal 02-21-2019 [facility] (16055) Comment: Performed By: #### [id number] # ### MARCUS RemHemo [address] [place] [address] Oxygen (Bld) [Partial 85 80-100 mmHg Normal 02-22-20 19 [facility]] System (00 000) Comment: Performed By: #### [id number] # ### MARCUS Kostaso [facility] [place] [id number] Oxygen saturation in Blood 96 95-100 % Normal [facility] (00 000) Comment: Performed By: #### [id number] # ### MARCUSShawn WilcoxKarlo [facility] [place] [address] P CO2. 32.7 35.0-45.0 mmHg Low 02-21-2019 [facility] (40694) Comment: Performed By: #### [id number] # ### MARCUS Kostaso [facility] [place] [address] Patient Temp. NOT CALCULATED Normal 02-21-2019 [facility] (49299) Comment: Performed By: #### [id number] # ### MARCUS Kostaso [address] [place] [address] pH (Bld) 7.329 7.350-7.450 Low 02-21-2019 [facility] (63375) Comment: Performed By: #### [id number] # ### MARCUS Kostaso [address] [place] [address] PSV/IP(cmH2O). 0 Normal 02-21-2019 [facility] (73578) Comment: Performed By: #### [id number] # ### MARCUS Kostaso [address] [place] [address] Sample Site. R rad Normal 02-21-2019 [facility] (38246) Comment: Performed By: #### [id number] # ### MARCUSShawn WilcoxHemo [facility] [place] [address] Sample Type. Arterial Normal 02-21-2019 [facility] (67913) Comment: Performed By: #### [id number] # ### MARCUSShawn WilcoxKarlo [facility] [place] [id number] Set RR(b/min). 0 Normal 02-21-2019 [facility] (44575) Comment: Performed By: #### [id number] # ### MARCUSShawn WilcoxHemo [address] [place] [address] Tidal Volume(mL). 0 Normal 02-21-[address] [facility] (43520) Comment: Performed By: #### [id number] # ### MARCUSShawn WilcoxHemo [address] [place] [address] Vent Mode. NOT CALCULATED Normal 02-21-2019 [facility] (83763) Comment: Performed By: #### [id number] # ### MARCUSShawn WilcoxHemo [facility] [place] [address] Allens Test. Neg Normal 02-21-2019 [facility] (20743) Comment: Performed By: #### [id number] # ### MARCUSShawn WilcoxHemo [facility] [place] [address] Base Excess. -8 -2-3 mmol/L Low 02-21-2019 [facility] (51205) Comment: Performed By: #### [id number] # ### MARCUSShawn WilcoxHemo [address] [place] [address] CO2 Tot. 19 22-28 mmol/L Low 02-21-2019 [facility] (84266) Comment: Performed By: #### [id number] # ### MARCUSShawn WilcoxHemo [facility] [place] [address] CPAP/PEEP(cmH2O). NOT CALCULATED Normal 019 [facility] (00 000) Comment: Performed By: #### [id number] # ### MARCUSShawn WilcoxHemo [facility] [place] [address] FiO2. 21 % Normal 02-21-2019 [facility] (97362) Comment: Performed By: #### [id number] # ### MARCUS RemHemo [facility] [place] [address] HCO#. 17.9 22.0-26.0 mmol/L Low 02-21-2019 [facility] (44846) Comment: Performed By: #### [id number] # ### MARCUSShawn WilcoxHemo [facility] [place] [address] O2 Devices. Room Air Normal 02-21-2019 [facility] (96688) Comment: Performed By: #### [id number] # ### MARCUS WilcoxHemo [address] [place] [address] OPID. [id number] Normal 02-21-2019 [facility] (60879) Comment: Performed By: #### [id number] # ### MARCUS WilcoxHemo [facility] [place] [address] Oxygen (Bld) [Partial 86 80-100 mmHg Normal 02-22-20 19 [facility]] System (00 000) Comment: Performed By: #### [id number] # ### MARCUS WilcoxHemo [facility] [place] [phone] Oxygen saturation in Blood 96 95-100 % Normal [facility] (00 000) Comment: Performed By: #### [id number] # ### MARCUS WilcoxHemo [address] [place], [place] [address] P CO2. 34.1 35.0-45.0 mmHg Low 02-21-2019 [facility] (97363) Comment: Performed By: #### [id number] # ### MARCUS JeriHemo [address] [place] [address] Patient Temp. NOT CALCULATED Normal 02-21-2019 [facility] (41274) Comment: Performed By: #### [id number] # ### MARCUS Kenyono [facility] [place] [phone] pH (Bld) 7.329 7.350-7.450 Low 02-21-2019 [facility] (53063) Comment: Performed By: #### [id number] # ### MARCUS Kostaso [address] [place], [place] [address] PSV/IP(cmH2O). NOT CALCULATED Normal 02-21-2019 [facility] (12862) Comment: Performed By: #### [id number] # ### MARCUS JeriHemo [facility] [place] [address] Sample Site. R rad Normal 02-21-2019 [facility] (20067) Comment: Performed By: #### [id number] # ### MARCUS JeriHemo [facility] [place] [phone] Sample Type. Arterial Normal 02-21-2019 [facility] (66560) Comment: Performed By: #### [id number] # ### MARCUS RemHemo [address] [place] [address] Set RR(b/min). NOT CALCULATED Normal 02-21-2019 [facility] (16340) Comment: Performed By: #### [id number] # ### MARCUS RemHemo [address] [place] [address] Tidal Volume(mL). NOT CALCULATED Normal 019 [facility] (00 000) Comment: Performed By: #### [id number] # ### MARCUS RemHemo [address] [place] [phone] Vent Mode. NOT CALCULATED Normal 02-21-2019 [facility] (75073) Comment: Performed By: #### [id number] # ### MARCUS RemHemo [address] [place] [phone] ethanol on Ethanol [Mass/Vol] <10 <=10 mg/dL Normal 02-21-2019 [facility] (84814) Comment: Performed By: #### [id number] # ### MARCUS Microbiology Subsection [address] [place] [address] egfr on 2019-02-21 GFR/1.73 sq M predicted 49 mL/min/1.73 m2 Normal 0 02-21-2019 [facility] among non-blacks [facility] (75771) (S/P/Bld) [Vol rate/Area] Comment: Order Comment: Straight Cath as needed Performed By: #### [id number] #### MARCUS Urinalysis Automated Suggs bsection [address] [place] [address] GFR/1.73 sq M predicted 40 mL/min/1.73 m2 Normal 0 02-21-2019 [facility] among [facility]-blacks [facility] (69560) (S/P/Bld) [Vol rate/Area] Comment: Order Comment: Straight Cath as needed Performed By: #### [id number] #### MARCUS Urinalysis Automated Suggs bsection [address] [place] [address] ck on 2019-02-21 Total CK 46 <=215 Int._Unit/L Normal 02-21-2019 [facility] (41621) Comment: Performed By: #### [id number] #### MARCUS Urinalysis Automated Suggs bsection [address] [place] [address] cbc w/ auto diff on 2019-02-21 Erythrocyte distribution 14.7 11.5-14.5 % High 02-21 [facility] width (RBC) [Ratio] Health System (53674) Comment: Performed By: #### [id number] #### MARCUS Urinalysis Automated Suggs bsection [address] [place] [address] Hematocrit (Bld) [Volume 41.4 36.0-48.0 % Normal 02-21 [facility] (08521) Comment: Performed By: #### [id number] #### MARCUS Urinalysis Automated Suggs bsection [address] [place] [address] Hemoglobin (Bld) 13.3 12.0-16.0 G/DL Normal 02-21-2019 [facility] [Mass/Vol] Health Sy stem (71666) Comment: Performed By: #### [id number] #### MARCUS Urinalysis Automated Suggs bsection [address] [place] [address] MCH (RBC) [Entitic mass] 30.7 27.0-31.0 pg Normal 02-21 [facility] (00 000) Comment: Performed By: #### [id number] #### MARCUS Urinalysis Automated Suggs bsection [address] [place] [address] MCHC (RBC) [Mass/Vol] 32.2 33.0-37.0 G/DL Low 02-22-20 19 [facility] (00 000) Comment: Performed By: #### [id number] #### MARCUS Urinalysis Automated Suggs bsection [address] [place] [address] MCV (RBC) [Entitic vol] 95.5 78.0-100.0 fL Normal 02-21 [facility] (44275) Comment: Performed By: #### [id number] #### MARCUS Urinalysis Automated Suggs bsection [address] [place] [address] Platelet mean volume 7.9 7.4-11.0 fL Normal 9 [facility] (d) [Entitic vol] System (20232) Comment: Performed By: #### [id number] #### MARCUS Urinalysis Automated Suggs bsection [address] [place] [address] Platelets (Bld) [#/Vol] 66 130-400 E3/mcL Low 2018 [facility] ( 000) Comment: Performed By: #### [id number] #### MARCUS Urinalysis Automated Suggs bsection [address] [place] [address] RBC (Bld) [#/Vol] 4.34 3.90-5.40 E6/mcL Normal 02-21-2019 [facility] () Comment: Performed By: #### [id number] #### MARCUS Urinalysis Automated Suggs bsection [address] [place] [address] WBC (Bld) [#/Vol] 4.2 3.6-11.0 E3/mcL Normal 02-21-2019 [facility] () Comment: Performed By: #### [id number] #### MARCUS Urinalysis Automated Suggs bsection [address] [place] [address] bmp on 2019-02-21 Anion gap [Moles/Vol] 18 10-20 mEq/L Normal 02-22-20 19 [facility] () Comment: Performed By: #### [id number] #### MARCUS Urinalysis Automated Suggs bsection [address] [place] [address] Calcium [Mass/Vol] 8.6 8.6-10.3 mg/dL Normal 02-21-2019 [facility] () Comment: Performed By: #### [id number] #### MARCUS Urinalysis Automated Suggs bsection [address] [place] [address] Chloride [Moles/Vol] 106 98-107 mEq/L Normal 9 [facility] () Comment: Performed By: #### [id number] #### MARCUS Urinalysis Automated Suggs bsection [address] [place] [address] CO2 [Moles/Vol] 16.0 21.0-32.0 mEq/L Low 02-21-2019 [facility] (65721) Comment: Performed By: #### [id number] #### MARCUS Urinalysis Automated Suggs bsection [address] [place] [address] Creatinine [Mass/Vol] 1.4 0.5-1.1 mg/dL High 02-22-20 [facility] (00 000) Comment: Performed By: #### [id number] #### MARCUS Urinalysis Automated Suggs bsection [address] [place] [address] Glucose [Mass/Vol] 165 70-99 mg/dL High 02-21-2019 [facility] (26889) Comment: Performed By: #### [id number] #### MARCUS Urinalysis Automated Suggs bsection [address] [place] [address] Potassium [Moles/Vol] 2.9 3.5-5.3 mEq/L Low 02-22-20 [facility] (00 000) Comment: Performed By: #### [id number] #### MARCUS Urinalysis Automated Suggs bsection [address] [place] [address] Sodium [Moles/Vol] 137 136-145 mEq/L Normal 02-21-2019 [facility] (00 000) Comment: Performed By: #### [id number] #### MARCUS Urinalysis Automated Suggs bsection [address] [place] [address] Urea nitrogen [Mass/Vol] 14 6-23 mg/dL Normal 02-21 [facility] (00 000) Comment: Performed By: #### [id number] #### MARCUS Urinalysis Automated Suggs bsection [address] [place] [address] Urea nitrogen/Creatinine 10.0 5.4-30.0 ratio Normal 02-21 [facility] [Mass ratio] [facility] (39581) Comment: Performed By: #### [id number] #### MARCUS Urinalysis Automated Suggs bsection [address] [place] [address] auto diff on 02-21 Basophils (Bld) [#/Vol] 0.0 0.0-0.2 E3/mcL Normal 2018 [facility] tem (59202) Comment: Order Comment: Order Added b y Discern Expert. Performed By: #### [id number] # ### MARCUS Microbiology Subsection [address] [place] [address] 82975 Basophils/100 WBC (Bld) 0.4 0.0-2.0 % Normal 2018 [facility] (00 000) Comment: Order Comment: Order Added b y Discern Expert. Performed By: #### [id number] # ### MARCUS Microbiology Subsection [address] [place] [address] 84239 Eos Absolute 0.1 0.0-0.7 E3/mcL Normal 02-21-2019 [facility] (69292) Comment: Order Comment: Order Added b y Discern Expert. Performed By: #### [id number] # ### MARCUS Microbiology Subsection [address] [place] [address] 69855 Eosinophils/100 WBC (Bld) 1.4 0.0-11.0 % Normal [facility] (00 000) Comment: Order Comment: Order Added b y Discern Expert. Performed By: #### [id number] # ### MARCUS Microbiology Subsection [address] [place] [address] 48958 Lymphocytes (Bld) [#/Vol] 1.0 1.2-3.4 E3/mcL Low [facility] (00 000) Comment: Order Comment: Order Added b y Discern Expert. Performed By: #### [id number] # ### MARCUS Microbiology Subsection [address] [place] [address] 23906 Lymphocytes/100 WBC (Bld) 24.1 20.0-55.0 % Normal [facility] tem (96471) Comment: Order Comment: Order Added b y Discern Expert. Performed By: #### [id number] # ### MARCUS Microbiology Subsection [address] [place] [address] 02556 Lassen Absolute 0.5 0.0-0.7 E3/mcL Normal 02-21-2019 [facility] (57552) Comment: Order Comment: Order Added b y Discern Expert. Performed By: #### [id number] # ### MARCUS Microbiology Subsection [address] [place] [address] 11789 Monocytes/100 WBC (Bld) 10.8 0.0-10.0 % High 2018 [facility] (00 000) Comment: Order Comment: Order Added b y Discern Expert. Performed By: #### [id number] # ### MARCUS Microbiology Subsection [address] [place] [address] 86827 Neutro Absolute 2.7 1.4-6.5 E3/mcL Normal 02-21-2019 [facility] (15619) Comment: Order Comment: Order Added b y Discern Expert. Performed By: #### [id number] # ### MARCUS Microbiology Subsection [address] [place] [address] 82058 Neutro Auto 63.3 37.0-75.0 % Normal 02-21-2019 [facility] (20532) Comment: Order Comment: Order Added erma Aldana Expert. Performed By: #### [id number] # ### MARCUS Microbiology Subsection [address] [place] [address] 88472 ammonia on Ammonia (P) [Mass/Vol] 55 16-53 mcmol/L High 02-21- [facility] (00 000) Comment: Performed By: #### [id number] # ### MARCUS Microbiology Subsection [address] [place] [address] 69366 acetamnphn lvl on Acetaminoph Lvl <10 10-30 Normal 02-21-2019 [facility] (54630) Comment: Performed By: #### [id number] # ### MARCUS Microbiology Subsection [address] [place] [address] 09152 nm myocardial perfusion single - stress only on 2018-12-26 NM Nuclear Report Normal 12-26-2018 [facility] Patient: PABLO OSMAN ([id number]) SINGLE - Med Rec#: [id number] (Age): 1975(43y) STRESS ONLY Height: Study Date: [...] imaging protocol was followed using Tc-99m tetrofosmin (GLOview) injected intravenously. For the stress portion of [...] on 2018-12-26 Nuclear Report 12-26-2018 [facility] (77725) Patient: PABLO OSMAN [facility] Rec#: [id number] (Age): 1975(43y ) Height: Study Date: 019 [...] RVPI Interface, Rad In Heartlab X per EchoAllergEase - 12/26/2018 3:48 PM EDT Nuclear Report 12-26-2018 [facility] (98596) Patient: PABLO OSMAN [facility] Rec#: [id number] (Age): 1975(43y) Height: Study Date: 12/26/2018 Weight: [...] Chest 2 Views Exam Date/Time: Normal 019 [facility] 12/21/2018 04:05 EST [facility] Reason for Exam: (00 000) Cough Report STUDY: XR Chest 2 Views; 12/21/2018 4:05 am INDICATION: Cough. COMPARISON: 10/02/2018 ACCESSION NUMBER(S): [id number] ORDERING CLINICIAN: Bob Wick FINDINGS: No significant [...] Influenzae A Ag Negative Negative Normal 12-21-2018 [facility] (00 000) Comment: Result Comment: Test Perform ed by PCR Testing Performed By: #### [id number] #### MARCUS Urinalysis Automated [facility] bsection [address] [place] [address] Influenzae B Ag Negative Negative Normal 12-21-2018 [facility] (00 000) Comment: Result Comment: Test Perform ed by PCR Testing Performed By: #### [id number] #### MARCUS Urinalysis Automated [facility] [address] [place] [address] ua complete on 2018 Color (U) Minerva Yellow Abnormal 12-12-2018 [facility] (91925) Comment: Performed By: #### [id number] # ### MARCUS [facility] [address] [place] [address] Glucose (U) [Mass/Vol] Negative Negative mg/dL Normal [address] [place] [address] Sys tem (02249) Comment: Performed By: #### [id number] # ### MARCUS [facility] [address] [place] [address] Ketones Ql (U) Trace Normal 12-12-2018 [facility] (09209) Comment: Performed By: #### [id number] # ### MARCUS [facility] [address] [place] [address] RBC (U) [#/Vol] 3-5 0-3 Abnormal 12-12-2018 [facility] (12037) Comment: Performed By: #### [id number] # ### MARCUS [facility] [address] [place] [address] UA Blood 2+ Negative Abnormal 12-12-2018 [facility] (90585) Comment: Performed By: #### [id number] # ### MARCUS [facility] [address] [place] [address] UA Clarity Cloudy Clear Abnormal 12-12-2018 [facility] (18381) Comment: Performed By: #### [id number] # ### MARCUS [facility] [address] [place] [address] UA Hyal Cast 5-10 0-2 Abnormal 12-12-2018 [facility] (94224) Comment: Performed By: #### [id number] # ### MARCUS [facility] [address] [place] [address] UA Leuk Est 3+ Negative Abnormal 12-12-2018 [facility] (17026) Comment: Performed By: #### [id number] # ### MARCUS [employer] [address] [place] [address] UA Nitrite Negative Negative Normal 12-12-2018 [facility] (41235) Comment: Performed By: #### [id number] # ### MARCUS [facility] [address] [place] [address] UA pH 5.0 4.6-8.0 Normal 12-12-2018 [facility] (41266) Comment: Performed By: #### [id number] # ### MARCUS [facility] [address] [place] [address] UA Protein Negative Negative Normal 12-12-2018 [facility] (67025) Comment: Performed By: #### [id number] # ### MARCUS [facility] [address] [place] [address] UA Spec Grav 1.020 1.003-1.030 Normal 12-12-2018 [facility] (78334) Comment: Performed By: #### [id number] # ### MARCUS [employer] [address] [place] [address] UA Squam Epithelial 20-30 0-5 Abnormal 12-12-2018 [facility] (82238) Comment: Performed By: #### [id number] # ### MARCUS [facility] [address] [place] [address] UA Urobilinogen 2.0 mg/dL Abnormal 12-12-2018 [facility] (20210) Comment: Result Comment: Due to a man ufacturing issue, low positive urobilinogen results may be fasely positi ve. Correlate with urine bilirubin and additional clinical/laborato ry findings to assess the risk of hemolytic anemia or liver disease. If clinically indicated, repeat testing with an alternate method is availabl e by contacting the laboratory within 24 hours. Performed By: #### [id number] # ### MARCUS [facility] [address] [place] [address] UA WBC 10-20 0-5 Abnormal 12-12-2018 [facility] (70065) Comment: Performed By: #### [id number] # ### MARCUS [facility] [address] [place] [address] Urobilinogen Qn (U) Negative Negative Normal 12-12-2018 [facility] (00 000) Comment: Performed By: #### [id number] # ### MARCUS [facility] [address] [place] [address] u drug screen on 06-12-24 U Amph Scr Negative Negative Normal 12-12-2018 [facility] (49818) Comment: Performed By: #### [id number] # ### MARCUS [facility] [address] [place] [address] U Kalyani Scr Negative Negative Normal 12-12-2018 [facility] (55546) Comment: Performed By: #### [id number] # ### MARCUS [facility] [address] [place] [address] U Benzodia Scr Negative Negative Normal 12-12-2018 [facility] (10975) Comment: Performed By: #### [id number] # ### MARCUS [facility] [address] [place] [address] U Cannab Scr Negative Negative Normal 12-12-2018 [facility] (39253) Comment: Performed By: #### [id number] # ### MARCUS [employer] [address] [place] [address] U Cocaine Scr Negative Negative Normal 12-12-2018 [facility] (68296) Comment: Performed By: #### [id number] # ### MARCUS [employer] [address] [place] [address] U Opiate Scr Negative Negative Normal 12-12-2018 [facility] (85604) Comment: Performed By: #### [id number] # ### MARCUS [facility] [address] [place] [address] U PCP Scr Negative Negative Normal 12-12-2018 [facility] (34789) Comment: Performed By: #### [id number] # ### MARCUS [employer] [facility] [place] [address] troponin-i on 12-12 Troponin I.cardiac .01 .00-.03 ng/mL Normal 12-12-2018 [facility] [Mass/Vol] Health Sy stem (83587) Comment: Performed By: #### [id number] # ### MARCUS [facility] [address] [place] [address] magnesium on 12-12 Magnesium [Mass/Vol] 2.0 1.6-2.4 mg/dL Normal 9 [facility] (00 000) Comment: Performed By: #### [id number] # ### MARCUS [facility] [address] [place] [address] hep func panel on Albumin [Mass/Vol] 4.4 3.4-5.0 gm/dL Normal 12-12-2018 [facility] (00 000) Comment: Performed By: #### [id number] # ### MARCUS [facility] [address] [place] [address] Albumin/Globulin [Mass 1.3 1.1-1.9 ratio Normal [facility]] Health Sys tem (99151) Comment: Performed By: #### [id number] # ### MARCUS [facility] [address] [place] [address] Alk Phos 69 33-110 Int._Unit/L Normal 12-12-2018 [facility] (77847) Comment: Performed By: #### [id number] # ### MARCUSShawn Wilcox[facility] [address] [place] [address] ALT [Catalytic 34 7-45 Int._Unit/L Normal 12-12-2018 [facility] activity/Vol [facility] (38406) Comment: Performed By: #### [id number] # ### MARCUSShawn WilcoxChem [facility] [place] [address] AST [Catalytic 69 9-39 Int._Unit/L High 12-12-2018 [facility] activity/Vol] [facility] (85981) Comment: Performed By: #### [id number] # ### MARCUS [employer] [facility] [place] [address] Bili Direct 0.26 0.00-0.30 mg/dL Normal 12-12-2018 [facility] (71375) Comment: Performed By: #### [id number] # ### MARCUS [place] [place] [address] Bili Indirect 0.57 mg/dL Normal 12-12-2018 [facility] (88045) Comment: Result Comment: No establish ed ranges available for the indirect bilirubin Performed By: #### [id number] # ### MARCUS [address] [address] Bili Total 0.83 0.00-1.20 mg/dL Normal 12-12-2018 [facility] (75371) Comment: Performed By: #### [id number] # ### MARCUS [address] [place] [address] Globulin (S) [Mass/Vol] 3.0 2.0-4.0 G/DL Normal 2018 [facility] (00 000) Comment: Performed By: #### [id number] # ### MARCUS [address] [place] [address] Protein [Mass/Vol] 7.7 6.4-8.2 gm/dL Normal 12-12-2018 [facility] (00 000) Comment: Performed By: #### [id number] # ### MARCUS [employer] [facility] [place] [address] ethanol on Ethanol [Mass/Vol] <10 <=10 mg/dL Normal 12-12-2018 [facility] (41263) Comment: Performed By: #### [id number] # ### MARCUS [employer] [address] [place] [address] egfr on 2018-12-12 GFR/1.73 sq M predicted 42 mL/min/1.73 m2 Normal 0 12-12-2018 [facility] among [facility]bl[facility] (35245) (S/P/Bld) [Vol rate/Area] Comment: Order Comment: With T4fr Ref kurt Performed By: #### [id number] # ### MARCUS [employer] [facility] [place] [address] GFR/1.73 sq M predicted 35 mL/min/1.73 m2 Normal 0 12-12-2018 [facility] among non-blacks [facility] (45870) (S/P/Bld) [Vol rate/Area] Comment: Order Comment: With T4fr Ref kurt Performed By: #### [id number] # ### MARCUS [employer] [facility] [place] [address] cbc w/ auto diff on 2018-12-12 Erythrocyte distribution 13.8 11.5-14.5 % Normal 12-12 [facility] width (RBC) [Ratio] Health System (68645) Comment: Performed By: #### [id number] # ### MARCUS [employer] [facility] [place] [address] Hematocrit (Bld) [Volume 44.1 36.0-48.0 % Normal 12-12 [facility] fraction] Health Sys tem (13876) Comment: Performed By: #### [id number] # ### MARCUS [facility] [address] [place] [address] Hemoglobin (Bld) 14.4 12.0-16.0 G/DL Normal 12-12-2018 [facility] [Mass/Vol] Health Sy stem (72594) Comment: Performed By: #### [id number] # ### MARCUS Rem[employer] [address] [place] [address] MCH (RBC) [Entitic mass] 30.3 27.0-31.0 pg Normal 12-12 [facility] (00 000) Comment: Performed By: #### [id number] # ### MARCUS [address] [place] [address] MCHC (RBC) [Mass/Vol] 32.7 33.0-37.0 G/DL Low 12-12-19 [facility] (00 000) Comment: Performed By: #### [id number] # ### MARCUS [address] [place] [address] MCV (RBC) [Entitic vol] 92.9 78.0-100.0 fL Normal 12-12 [facility] tem (39814) Comment: Performed By: #### [id number] # ### MARCUS [address] [place] [address] Platelet mean volume 8.1 7.4-11.0 fL Normal 9 [facility] (Bld) [Entitic vol] System (78541) Comment: Performed By: #### [id number] # ### MARCUS [address] [address] Platelets (Bld) [#/Vol] 122 130-400 E3/mcL Low 2018 [facility] (00 000) Comment: Performed By: #### [id number] # ### MARCUS [address] [address] RBC (Bld) [#/Vol] 4.75 3.90-5.40 E6/mcL Normal 12-12-2018 [facility] (00 000) Comment: Performed By: #### [id number] # ### MARCUS [address] [place] [address] WBC (Bld) [#/Vol] 6.2 3.6-11.0 E3/mcL Normal 12-12-2018 [facility] (00 000) Comment: Performed By: #### [id number] # ### MARCUS [address] [place] [address] bmp on 2018-12-12 Anion gap [Moles/Vol] 16 10-20 mEq/L Normal 12-12-19 [facility] (00 000) Comment: Performed By: #### [id number] # ### MARCUS [facility] [address] [place] [address] Calcium [Mass/Vol] 9.5 8.6-10.3 mg/dL Normal 12-12-2018 [facility] () Comment: Performed By: #### [id number] # ### MARCUS [facility] [address] [place] [address] Chloride [Moles/Vol] 105 98-107 mEq/L Normal 9 [facility] () Comment: Performed By: #### [id number] # ### MARCUS [facility] [address] [place] [address] CO2 [Moles/Vol] 20.0 21.0-32.0 mEq/L Low 12-12-2018 [facility] (55275) Comment: Performed By: #### [id number] # ### MARCUS [facility] [address] [place] [address] Creatinine [Mass/Vol] 1.6 0.5-1.1 mg/dL High 12-12-19 19 [facility] () Comment: Performed By: #### [id number] # ### MARCUS [facility] [address] [place] [address] Glucose [Mass/Vol] 150 70-99 mg/dL High 12-12-2018 [facility] (15050) Comment: Performed By: #### [id number] # ### MARCUS [facility] [address] [place] [address] Potassium [Moles/Vol] 4.4 3.5-5.3 mEq/L Normal 12-12-19 19 [facility] (00 000) Comment: Performed By: #### [id number] # ### MARCUS [facility] [address] [place] [address] Sodium [Moles/Vol] 137 136-145 mEq/L Normal 12-12-2018 [facility] () Comment: Performed By: #### [id number] # ### MARCUS [facility] [address] [place] [address] Urea nitrogen [Mass/Vol] 27 6-23 mg/dL High 12-12 [facility] (00 000) Comment: Performed By: #### [id number] # ### MARCUS WilcoxT[employer] [address] [place] [address] Urea nitrogen/Creatinine 16.9 5.4-30.0 ratio Normal 12-12 [facility] [Mass ratio] [facility] (80473) Comment: Performed By: #### [id number] # ### MARCUS WilcoxTicketFire [address] [place] [address] auto diff on 12-12 Basophils (Bld) [#/Vol] 0.0 0.0-0.2 E3/mcL Normal 2018 [facility] Sys tem (50352) Comment: Order Comment: With T4fr Ref kurt Performed By: #### [id number] # ### MARCUS [employer] [facility] [place] [address] Basophils/100 WBC (Bld) 0.4 0.0-2.0 % Normal 2018 [facility] (00 000) Comment: Order Comment: With T4fr Ref kurt Performed By: #### [id number] # ### MARCUS WilcoxT[employer] [address] [place] [address] Eos Absolute 0.0 0.0-0.7 E3/mcL Normal 12-12-2018 [facility] (98181) Comment: Order Comment: With T4fr Ref kurt Performed By: #### [id number] # ### MARCUS WilcoxT[employer] [facility] [place] [address] Eosinophils/100 WBC (Bld) 0.1 0.0-11.0 % Normal 11-19 [facility] (00 000) Comment: Order Comment: With T4fr Ref kurt Performed By: #### [id number] # ### MARCUS [employer] [facility] [place] [address] Lymphocytes (Bld) [#/Vol] 0.6 1.2-3.4 E3/mcL Low 11-19 [facility] (00 000) Comment: Order Comment: With T4fr Ref kurt Performed By: #### [id number] # ### MARCUS EXFO [facility] [place] [address] Lymphocytes/100 WBC (Bld) 9.6 20.0-55.0 % Low 11-19 [facility] (00 000) Comment: Order Comment: With T4fr Ref kurt Performed By: #### [id number] # ### MARCUS [facility] [address] [place] [address] [place] Absolute 0.6 0.0-0.7 E3/mcL Normal 12-12-2018 [facility] (48491) Comment: Order Comment: With T4fr Ref kurt Performed By: #### [id number] # ### MARCUS [employer] [facility] [place] [address] Monocytes/100 WBC (Bld) 9.4 0.0-10.0 % Normal 2018 [facility] (00 000) Comment: Order Comment: With T4fr Ref kurt Performed By: #### [id number] # ### MARCUS [employer] [address] [place] [address] Neutro Absolute 5.0 1.4-6.5 E3/mcL Normal 12-12-2018 [facility] (93616) Comment: Order Comment: With T4fr Ref kurt Performed By: #### [id number] # ### MARCUS [employer] [address] [place] [address] Neutro Auto 80.5 37.0-75.0 % High 12-12-2018 [facility] (09536) Comment: Order Comment: With T4fr Ref kurt Performed By: #### [id number] # ### MARCUS [facility] [address] [place] [address] ua complete on 2018 Color (U) Yellow Yellow Normal 12-03-2018 [facility] (90592) Comment: Performed By: #### [id number] #### MARCUS [employer] [facility] [place] [address] Glucose (U) [Mass/Vol] Negative Negative mg/dL Normal 019 [facility] tem (31764) Comment: Performed By: #### [id number] #### MARCUS [facility] [address] [place] [address] Ketones Ql (U) Negative Negative Normal 12-03-2018 [facility] (67711) Comment: Performed By: #### [id number] #### MARCUS [facility] [address] [place] [address] RBC (U) [#/Vol] 3-5 0-3 Abnormal 12-03-2018 [facility] (86151) Comment: Performed By: #### [id number] #### MARCUSShawn [facility] [address] [place] [address] UA Blood Negative Negative Normal 12-03-2018 [facility] (74740) Comment: Performed By: #### [id number] #### MARCUSShawn [facility] [address] [place] [address] UA Bacteria 1+ None /HPF Abnormal 12-03-2018 [facility] (14573) Comment: Performed By: #### [id number] #### MARCUSShawn Wilcox[facility] [address] [place] [address] UA Clarity SltCloudy Clear Abnormal 12-03-2018 [facility] (98546) Comment: Performed By: #### [id number] #### MARCUSShawn [facility] [address] [place] [address] UA Leuk Est Trace Negative Normal 12-03-2018 [facility] (89616) Comment: Performed By: #### [id number] #### MARCUS [facility] [address] [place] [address] UA Nitrite Negative Negative Normal 12-03-2018 [facility] (17300) Comment: Performed By: #### [id number] #### MARCUSShawn [facility] [address] [place] [address] UA pH 6.0 4.6-8.0 Normal 12-03-2018 [facility] (67533) Comment: Performed By: #### [id number] #### MARCUS [facility] [address] [place] [address] UA Protein Negative Negative Normal 12-03-2018 [facility] (19436) Comment: Performed By: #### [id number] #### MARCUS [facility] [address] [place] [address] UA Spec Grav 1.016 1.003-1.030 Normal 12-03-2018 [facility] (56013) Comment: Performed By: #### [id number] #### MARCUS [facility] [address] [place] [address] UA Squam Epithelial 10-20 0-5 Abnormal 12-03-2018 [facility] (78105) Comment: Performed By: #### [id number] #### MARCUS Zelaya [facility] [place] [address] UA Urobilinogen Negative Normal 12-03-2018 [facility] (97383) Comment: Result Comment: Due to a man ufacturing issue, low positive urobilinogen results may be fasely positi ve. Correlate with urine bilirubin and additional clinical/laborato ry findings to assess the risk of hemolytic anemia or liver disease. If clinically indicated, repeat testing with an alternate method is availabl e by contacting the laboratory within 24 hours. Performed By: #### [id number] #### MARCUS WilcoxT[employer] [facility] [place] [address] UA WBC 5-10 0-5 Abnormal 12-03-2018 [facility] (00855) Comment: Performed By: #### [id number] #### MARCUS WilcoxTicket[employer] [facility] [place] [address] Urobilinogen Qn (U) Negative Negative Normal 12-03-2018 [facility] (00 000) Comment: Performed By: #### [id number] #### MARCUS WilcoxTicketFire [address] [place] [address] u bhcg qlt on 12-03 HCG.beta subunit Qn Neg Neg m[IU]/mL Normal 12-03-2018 [facility] (00 000) Comment: Performed By: #### [id number] #### MARCUSShawn WilcoxTicketFire [facility] [place] [address] lipase level on 201 06-19-16 Lipase Lvl 38 9-82 Int._Unit/L Normal 12-03-2018 [facility] (78345) Comment: Performed By: #### [id number] #### MARCUS WilcoxTicket[employer] [facility] [place] [address] egfr on 2018-12-03 GFR/1.73 sq M predicted 56 mL/min/1.73 m2 Normal 0 12-03-2018 [facility] among non-blacks [facility] (85400) (S/P/Bld) [Vol rate/Area] Comment: Order Comment: Order added erma Aldana Expert. Performed By: #### [id number] #### MARCUS [employer] [address] [place] [address] GFR/1.73 sq M predicted 46 mL/min/1.73 m2 Normal 0 12-03-2018 [facility] among non-blacks [facility] (39940) (S/P/Bld) [Vol rate/Area] Comment: Order Comment: Order added erma Aldana Expert. Performed By: #### [id number] #### MARCUS Rem[employer] [address] [place] [address] ct abdomen/pelvis w/o contrast on 2018-12-03 CT Abdomen/Pelvis w/o Exam Date/Time: Normal Islam Contrast 12/03/2018 00:08 EST [facility] Reason for Exam: Sys tem (55871) Pain Report STUDY: CT Abdomen/Pelvis w/o Contrast; 12/03/2018 12:08 am INDICATION: Pain. COMPARISON: 09/22/2018 ACCESSION NUMBER(S): [id number] ORDERING CLINICIAN: Heidy Lane TECHNIQUE: Axial noncontrast [...] Signed by: Nicole Anderson MD Technologist: JACKSON lal on 2018-12-03 Albumin [Mass/Vol] 3.6 3.4-5.0 gm/dL Normal 12-03-2018 [facility] (00 000) Comment: Performed By: #### [id number] #### MARCUS [facility] [address] [place] [address] Albumin/Globulin [Mass 1.5 1.1-1.9 ratio Normal [address] [place] [address] Health Sys tem (66074) Comment: Performed By: #### [id number] #### MARCUS [employer] [address] [place] [address] Alk Phos 69 33-110 Int._Unit/L Normal 12-03-2018 [facility] (76523) Comment: Performed By: #### [id number] #### MARCUS RemChem [address] [place] [address] ALT [Catalytic 13 7-45 Int._Unit/L Normal 12-03-2018 [facility] (68441) Comment: Performed By: #### [id number] #### MARCUS Rem[employer] [address] [place] [address] Anion gap [Moles/Vol] 12 10-20 mEq/L Normal 12-03-19 19 [facility] (00 000) Comment: Performed By: #### [id number] #### MARCUS Rem[employer] [address] [place] [address] AST [Catalytic 19 9-39 Int._Unit/L Normal 12-03-2018 [facility] (44483) Comment: Performed By: #### [id number] #### MARCUS Rem[employer] [address] [place] [address] Bili Total 0.35 0.00-1.20 mg/dL Normal 12-03-2018 [facility] (42704) Comment: Performed By: #### [id number] #### MARCUS Rem[employer] [address] [place] [address] Calcium [Mass/Vol] 8.3 8.6-10.3 mg/dL Low 12-03-2018 [facility] (26664) Comment: Performed By: #### [id number] #### MARCUS [employer] [address] [place] [address] Chloride [Moles/Vol] 110 98-107 mEq/L High [facility] () Comment: Performed By: #### [id number] #### MARCUS Rem[employer] [address] [place] [address] CO2 [Moles/Vol] 22.0 21.0-32.0 mEq/L Normal 12-03-2018 [facility] () Comment: Performed By: #### [id number] #### MARCUS [employer] [address] [place] [address] Creatinine [Mass/Vol] 1.3 0.5-1.1 mg/dL High 12-03-19 [facility] (00 000) Comment: Performed By: #### [id number] #### MARCUS [employer] [address] [place] [address] Globulin (S) [Mass/Vol] 2.0 2.0-4.0 G/DL Normal 2018 [facility] ( 000) Comment: Performed By: #### [id number] #### MARCUS [employer] [address] [place] [address] Glucose [Mass/Vol] 133 70-99 mg/dL High 12-03-2018 [facility] (88152) Comment: Performed By: #### [id number] #### MARCUS [employer] [address] [place] [address] Potassium [Moles/Vol] 4.2 3.5-5.3 mEq/L Normal 12-03-19 [facility] (00 000) Comment: Performed By: #### [id number] #### MARCUS [employer] [address] [place] [address] Protein [Mass/Vol] 6.0 6.4-8.2 gm/dL Low 12-03-2018 [facility] (30246) Comment: Performed By: #### [id number] #### MACRUS JeriTicketFire [facility] [place] [address] Sodium [Moles/Vol] 140 136-145 mEq/L Normal 12-03-2018 [facility] (00 000) Comment: Performed By: #### [id number] #### M[place]US [place] [address] [place] [address] Urea nitrogen [Mass/Vol] 9 6-23 mg/dL Normal 12-03 [facility] (00 000) Comment: Performed By: #### [id number] #### MARCUS [address] [place] [address] Urea nitrogen/Creatinine 6.9 5.4-30.0 ratio Normal 12-03 [facility] [Mass ratio] [facility] (47812) Comment: Performed By: #### [id number] #### MARCUS Jeri[address] [address] cbc w/ auto diff on 2018-12-03 Erythrocyte distribution 12.9 11.5-14.5 % Normal 12-03 [facility] width (RBC) [Ratio] Health System (37008) Comment: Performed By: #### [id number] #### MARCUS Wilcox[address] [address] Hematocrit (Bld) [Volume 42.4 36.0-48.0 % Normal 12-03 [facility] fraction] Health Sys tem (27589) Comment: Performed By: #### [id number] #### MARCUSShawn [address] [place] [address] Hemoglobin (Bld) 14.1 12.0-16.0 G/DL Normal 12-03-2018 [facility] [Mass/Vol] Health Sy stem (45869) Comment: Performed By: #### [id number] #### MARCUS [address] [place] [address] MCH (RBC) [Entitic mass] 30.5 27.0-31.0 pg Normal 12-03 [facility] (00 000) Comment: Performed By: #### [id number] #### MARCUS Zelaya [facility] [place] [address] MCHC (RBC) [Mass/Vol] 33.3 33.0-37.0 G/DL Normal 12-03-19 19 [facility] (00 000) Comment: Performed By: #### [id number] #### MARCUS Zelaya [address] [place] [address] MCV (RBC) [Entitic vol] 91.5 78.0-100.0 fL Normal 12-03 [facility] Sys tem (96538) Comment: Performed By: #### [id number] #### MARCUS Zelaya [facility] [place] [address] Platelet mean volume (Bld) 7.2 7.4-11.0 fL Low [facility] [Entitic vol] System (52406) Comment: Performed By: #### [id number] #### MARCUS [address] [address] Platelets (Bld) [#/Vol] 121 130-400 E3/mcL Low 2018 [facility] (00 000) Comment: Performed By: #### [id number] #### MARCUS [address] [address] RBC (Bld) [#/Vol] 4.64 3.90-5.40 E6/mcL Normal 12-03-2018 [facility] (00 000) Comment: Performed By: #### [id number] #### MARCUS [address] [place] [address] WBC (Bld) [#/Vol] 4.5 3.6-11.0 E3/mcL Normal 12-03-2018 [facility] (00 000) Comment: Performed By: #### [id number] #### MARCUS Zelaya [facility] [place] [address] auto diff on 2019-0 2-16 Basophils (Bld) [#/Vol] 0.0 0.0-0.2 E3/mcL Normal 2018 [facility] Sys tem (02206) Comment: Order Comment: Order added b y Discern Expert. Performed By: #### [id number] #### MARCUS WilcoxTicketFire [facility] [place] [address] Basophils/100 WBC (Bld) 0.6 0.0-2.0 % Normal 2018 [facility] (00 000) Comment: Order Comment: Order added b y Discern Expert. Performed By: #### [id number] #### MARCUS JeriTicketFire [address] [place] [address] Eos Absolute 0.1 0.0-0.7 E3/mcL Normal 12-03-2018 [facility] (20043) Comment: Order Comment: Order added b y Discern Expert. Performed By: #### [id number] #### [facility] JeriTicketFire [address] [place] [address] Eosinophils/100 WBC (Bld) 2.6 0.0-11.0 % Normal 11-18 [facility] (00 000) Comment: Order Comment: Order added b y Discern Expert. Performed By: #### [id number] #### [facility] EXFO [address] [place] [address] Lymphocytes (Bld) [#/Vol] 1.2 1.2-3.4 E3/mcL Normal 11-18 [facility] tem (50709) Comment: Order Comment: Order added b y Discern Expert. Performed By: #### [id number] #### MARCUS WilcoxTicketFire [address] [place] [address] Lymphocytes/100 WBC (Bld) 27.2 20.0-55.0 % Normal 11-18 [facility] (64418) Comment: Order Comment: Order added b y Discern Expert. Performed By: #### [id number] #### [facility] EXFO [address] [place] [address] [place] Absolute 0.3 0.0-0.7 E3/mcL Normal 12-03-2018 [facility] (27908) Comment: Order Comment: Order added b y Discern Expert. Performed By: #### [id number] #### MARCUS EXFO [facility] [place] [address] Monocytes/100 WBC (Bld) 7.7 0.0-10.0 % Normal 2018 [facility] (00 000) Comment: Order Comment: Order added erma Aldana Expert. Performed By: #### [id number] #### MARCUS WilcoxChem [address] [place] [id number] Neutro Absolute 2.8 1.4-6.5 E3/mcL Normal 12-03-2018 [facility] (11655) Comment: Order Comment: Order added erma Aldana Expert. Performed By: #### [id number] #### MARCUS Zelaya [address] [place] [id number] Neutro Auto 61.9 37.0-75.0 % Normal 12-03-2018 [facility] (81562) Comment: Order Comment: Order added erma Aldana Expert. Performed By: #### [id number] #### MARCUS Zelaya [address] [place] [address] ct head or brain w/ + w/o contrast on 2018-12-01 CT Head or Brain Exam Date/Time: Normal 019 [facility] w/ + w/o Contrast 12/01/2018 12:05 [facility] Reason for Exam: (00 000) ABN GAIT Report STUDY: CT Head or Brain w/ + w/o Contrast; 12/01/2018 12:05 pm INDICATION: ABN GAIT. COMPARISON: 04/29/2016 ACCESSION NUMBER(S): [id number] ORDERING CLINICIAN: Ana Hodge TECHNIQUE: Axial images [...] Ag IA Final Report: Normal 11-27-19 19 [facility] (Unsp spec) [facility] screen negative (000 00) Comment: Performed By: #### [id number] #### MARCUS [employer] [address] [place] [address] lipid panel on 2018 Cholesterol in HDL mass 43 40-59 mg/dL Normal 2018 [facility] (63284) Comment: Performed By: #### GLUX #### Unless otherwise noted, [facility] [address] [facility] [place] [address] CLIA: [id number] Cra: Ismael vines M.D. Cholesterol in LDL mass 163 10-150 mg/dL High [address] [facility] (58860) Comment: Performed By: #### GLUX #### Unless otherwise noted, all testing performed by [facility] [address] [facility] [place] [address] CLIA: [id number] Cra: Ismael vines M.D. Cholesterol in VLDL mass 41 5-40 mg/dL High 11-22 [facility] (69692) Comment: Performed By: #### GLUX #### Unless otherwise noted, all testing performed by [facility] l [address] [place] [address] CLIA: [id number] Cra: Ismael vines M.D. Cholesterol mass conc 247 100-199 mg/dL High 11-22-19 19 [facility] (34568) Comment: Performed By: #### GLUX #### Unless otherwise noted, all testing performed by [facility] l [address] [facility]. [place] [address] CLIA: [id number] Cra: Ismael vines M.D. Cholesterol.total/Cholesterol in HDL 5.7 3.2-5.0 Hig h 11-22-2018 [facility] mass [facility] (89798) Comment: Result Comment: Female Coron xavier Heart Disease Risk Factor (CHDRF): Average risk= 4.4 1/2 Average risk= 3.3 2 times Average risk= 7.1 Performed By: #### GLUX #### Unless otherwise noted, all testing performed by [facility] [address] [facility]. [place] [address] CLIA: [id number] Cra: Ismael vines M.D. Triglyceride mass conc 206 30-150 mg/dL High 019 [facility] (97495) Comment: Performed By: #### GLUX #### Unless otherwise noted, all testing performed by [address] [place] [address] CLIA: [id number] Cra: Ismael vines M.D. No panel information on 2018-11-22 Cholesterol in HDL mass conc 43 40 - 59 mg/dL 0 11-22-2018 [facility] (13582) Cholesterol in LDL mass conc 163 10 - 150 mg/dL High 0 11-22-2018 [facility] (01541) Cholesterol in VLDL mass conc 41 5 - 40 mg/dL High 11-22-2018 [facility] (28280) Cholesterol mass conc 247 100 - 199 mg/dL High 11-22-19 19 [facility] (96929) Cholesterol.total/Cholesterol 5.7 OTH - OTH High 11-22-2018 [facility] (81948) in HDL mass ratio Comment: Female Coronary Heart Diseas e Risk Factor (CHDRF): Average risk= 4.4 1/2 Average risk= 3.3 2 times Average risk= 7.1 Interpretation and review Abnormal [facility] (09534) of laboratory results Triglyceride mass conc 206 30 - 150 mg/dL High 019 [facility] (52493) zzplt morph on 2018 Platelet morphology finding ENLARGED Normal [facility] Nom (d) System (00 000) Comment: Performed By: #### [id number] # ### MARCUS [employer] [address] [place] [address] Platelets (Bld) [#/Vol] DECREASED Normal 2018 [facility] (00 000) Comment: Performed By: #### [id number] # ### MARCUS [employer] [address] [place] [address] ua complete on 2018 Color (U) Straw Yellow Normal 11-17-2018 [facility] (67959) Comment: Performed By: #### [id number] # ### MARCUS [employer] [address] [place] [address] Glucose (U) [Mass/Vol] Negative Negative mg/dL Normal 019 [facility] Sys tem (22490) Comment: Performed By: #### [id number] # ### MARCUS [employer] [address] [place] [address] Ketones Ql (U) Negative Negative Normal 11-17-2018 [facility] (83302) Comment: Performed By: #### [id number] # ### MARCUS [employer] [address] [place] [address] UA Blood Negative Negative Normal 11-17-2018 [facility] (53808) Comment: Performed By: #### [id number] # ### MARCUS [employer] [address] [place] [address] UA Clarity Clear Clear Normal 11-17-2018 [facility] (92701) Comment: Performed By: #### [id number] # ### MARCUS [employer] [address] [place] [address] UA Leuk Est Negative Negative Normal 11-17-2018 [facility] (71048) Comment: Performed By: #### [id number] # ### MARCUS [employer] [address] [place] [address] UA Nitrite Negative Negative Normal 11-17-2018 [facility] (73034) Comment: Performed By: #### [id number] # ### MARCUS WilcoxChem [address] [place] [address] UA pH 6.0 4.6-8.0 Normal 11-17-2018 [facility] (19623) Comment: Performed By: #### [id number] # ### MARCUS [employer] [address] [place] [address] UA Protein Negative Negative Normal 11-17-2018 [facility] (80757) Comment: Performed By: #### [id number] # ### MARCUS [employer] [address] [place] [address] UA Spec Grav 1.009 1.003-1.030 Normal 11-17-2018 [facility] (69175) Comment: Performed By: #### [id number] # ### MARCUS RemChem [facility] [place] [address] UA Squam Epithelial 0-5 0-5 Normal 11-17-2018 [facility] (66339) Comment: Performed By: #### [id number] # ### MARCUS [employer] [address] [place] [address] UA Urobilinogen Negative Normal 11-17-2018 [facility] (03114) Comment: Result Comment: Due to a man ufacturing issue, low positive urobilinogen results may be fasely positi ve. Correlate with urine bilirubin and additional clinical/laborato ry findings to assess the risk of hemolytic anemia or liver disease. If clinically indicated, repeat testing with an alternate method is availabl e by contacting the laboratory within 24 hours. Performed By: #### [id number] # ### MARCUS [employer] [address] [place] [address] UA WBC 0-5 0-5 Normal 11-17-2018 [facility] (00872) Comment: Performed By: #### [id number] # ### MARCUS [employer] [address] [place] [address] Urobilinogen Qn (U) Negative Negative Normal 11-17-2018 [facility] (00 000) Comment: Performed By: #### [id number] # ### MARCUS Zelaya [address] [place] [address] u bhcg qlt on 11-17 HCG.beta subunit Qn Neg Neg m[IU]/mL Normal 11-17-2018 [facility] (00 000) Comment: Performed By: #### [id number] # ### MARCUS Zelaya [facility] [place] [address] morph on 2018-11-17 RBC morphology finding Nom NORMAL Normal [facility] (Bld) System (00 000) Comment: Order Comment: Order Added b y Discern Expert. Performed By: #### [id number] # ### MARCUS Zelaya [facility] [place] [address] lipase level on 201 06-18-31 Lipase Lvl 48 9-82 Int._Unit/L Normal 11-17-2018 [facility] (59971) Comment: Performed By: #### [id number] # ### MARCUS [address] [address] hep func panel on 2 Albumin [Mass/Vol] 3.8 3.4-5.0 gm/dL Normal 11-17-2018 [facility] (00 000) Comment: Performed By: #### [id number] # ### MARCUS [address] [place] [address] Albumin/Globulin [Mass 1.8 1.1-1.9 ratio Normal [address] [place] [address]] Health Sys tem (03806) Comment: Performed By: #### [id number] # ### MARCUS Nathalie [facility] [place] [address] Alk Phos 59 33-110 Int._Unit/L Normal 11-17-2018 [facility] (40412) Comment: Performed By: #### [id number] # ### MARCUS JeriChem [address] [place] [address] ALT [Catalytic 18 7-45 Int._Unit/L Normal 11-17-2018 [facility] activity/Vol] Health System (40157) Comment: Performed By: #### [id number] # ### MARCUSShawn WilcoxChem [address] [place] [address] AST [Catalytic 28 9-39 Int._Unit/L Normal 11-17-2018 [facility] activity/[facility] (21495) Comment: Performed By: #### [id number] # ### MARCUS [address] [place] [address] Bili Direct 0.07 0.00-0.30 mg/dL Normal 11-17-2018 [facility] (76756) Comment: Performed By: #### [id number] # ### MARCUS Zelaya [facility] [place] [address] Bili Indirect 0.38 mg/dL Normal 11-17-2018 [facility] (84842) Comment: Result Comment: No establish ed ranges available for the indirect bilirubin Performed By: #### [id number] # ### MARCUSShawn Zelaya [address] [place] [address] Bili Total 0.45 0.00-1.20 mg/dL Normal 11-17-2018 [facility] (21584) Comment: Performed By: #### [id number] # ### MARCUSShawn Zelaya [address] [place] [address] Globulin (S) [Mass/Vol] 2.0 2.0-4.0 G/DL Normal 2018 [facility] (00 000) Comment: Performed By: #### [id number] # ### MARCUSShawn [address] [address] Protein [Mass/Vol] 5.9 6.4-8.2 gm/dL Low 11-17-2018 [facility] (29094) Comment: Performed By: #### [id number] # ### [facility]Shawn [facility] [address] [place] [address] egfr on 2018-11-17 GFR/1.73 sq M predicted 56 mL/min/1.73 m2 Normal 0 11-17-2018 [facility] among non-blacks MDRD [facility] (26390) (S/P/Bld) [Vol rate/Area] Comment: Order Comment: Order added b y Discern Expert. Performed By: #### [id number] # ### [address]Shawn [address] [place] [address] GFR/1.73 sq M predicted 46 mL/min/1.73 m2 Normal 0 11-17-2018 [facility] among non-blacks [facility] (58535) (S/P/Bld) [Vol rate/Area] Comment: Order Comment: Order added b y Discern Expert. Performed By: #### [id number] # ### MARCUSShawn Zelaya [address] [place] [address] cbc w/ auto diff on 2018-11-17 Erythrocyte distribution 13.2 11.5-14.5 % Normal 11-17 [facility] width (RBC) [Ratio] Health System (00616) Comment: Performed By: #### [id number] # ### MARCUS JeriChem [facility] [place] [address] Hematocrit (Bld) [Volume 41.0 36.0-48.0 % Normal 11-17 [facility] fraction] Health Sys tem (94334) Comment: Performed By: #### [id number] # ### MARCUS JeriChem [facility] [place] [address] Hemoglobin (Bld) 13.8 12.0-16.0 G/DL Normal 11-17-2018 [facility] [Mass/Vol] Health Sy stem (33255) Comment: Performed By: #### [id number] # ### MARCUS eJriChem [address] [place] [address] MCH (RBC) [Entitic mass] 30.9 27.0-31.0 pg Normal 11-17 [facility] (00 000) Comment: Performed By: #### [id number] # ### MARCUS Rem[employer] [address] [place] [address] MCHC (RBC) [Mass/Vol] 33.6 33.0-37.0 G/DL Normal 11-17-19 19 [facility] (00 000) Comment: Performed By: #### [id number] # ### MARCUS [employer] [address] [place] [address] MCV (RBC) [Entitic vol] 91.9 78.0-100.0 fL Normal 11-17 [facility] Sys tem (51047) Comment: Performed By: #### [id number] # ### MARCUS JeriChem [address] [place] [address] Platelet mean volume 7.6 7.4-11.0 fL Normal 9 [facility] (Bld) [Entitic vol] System (25432) Comment: Performed By: #### [id number] # ### MARCUS JeriChem [address] [place] [address] Platelets (Bld) [#/Vol] 82 130-400 E3/mcL Low 2018 [facility] (00 000) Comment: Performed By: #### [id number] # ### MARCUS JeriTicketFire [facility] [place] [address] RBC (Bld) [#/Vol] 4.46 3.90-5.40 E6/mcL Normal 11-17-2018 [facility] ( 000) Comment: Performed By: #### [id number] # ### MARCUS WilcoxTicketFire [facility] [place] [address] WBC (Bld) [#/Vol] 4.2 3.6-11.0 E3/mcL Normal 11-17-2018 [facility] ( 000) Comment: Performed By: #### [id number] # ### MARCUS JeriTicketFire [facility] [place] [address] bmp on 2018-11-17 Anion gap [Moles/Vol] 11 10-20 mEq/L Normal 11-17-19 19 [facility] ( 000) Comment: Performed By: #### [id number] # ### MARCUS WilcoxTicketFire [address] [place] [address] Calcium [Mass/Vol] 8.7 8.6-10.3 mg/dL Normal 11-17-2018 [facility] ( 000) Comment: Performed By: #### [id number] # ### MARCUS JeriTicketFire [address] [place] [address] Chloride [Moles/Vol] 108 98-107 mEq/L High 9 [facility] ( 000) Comment: Performed By: #### [id number] # ### MARCUS RemTicketFire [address] [place] [address] CO2 [Moles/Vol] 21.0 21.0-32.0 mEq/L Normal 11-17-2018 [facility] (00 000) Comment: Performed By: #### [id number] # ### MARCUS JeriChem [address] [place] [address] Creatinine [Mass/Vol] 1.2 0.5-1.1 mg/dL High 11-17-19 19 [facility] (00 000) Comment: Performed By: #### [id number] # ### MARCUS JeriChem [address] [place] [address] Glucose [Mass/Vol] 103 70-99 mg/dL High 11-17-2018 [facility] (58614) Comment: Performed By: #### [id number] # ### MARCUS JeriChem [address] [place] [address] Potassium [Moles/Vol] 3.7 3.5-5.3 mEq/L Normal 11-17-19 19 [facility] (00 000) Comment: Performed By: #### [id number] # ### MARCUS JeriChem [facility] [place] [address] Sodium [Moles/Vol] 136 136-145 mEq/L Normal 11-17-2018 [facility] (00 000) Comment: Performed By: #### [id number] # ### MARCUS JeriChem [address] [place] [address] Urea nitrogen [Mass/Vol] 15 6-23 mg/dL Normal 11-17 [facility] (00 000) Comment: Performed By: #### [id number] # ### MARCUS JeriChem [address] [place] [address] Urea nitrogen/Creatinine 12.5 5.4-30.0 ratio Normal 11-17 [facility] [Mass ratio] [facility] (34405) Comment: Performed By: #### [id number] # ### MARCUS JeriChem [address] [place] [address] auto diff on 11-17 Basophils (Bld) [#/Vol] 0.0 0.0-0.2 E3/mcL Normal 2018 [facility] Sys tem (08769) Comment: Order Comment: Order Added b y Discern Expert. Performed By: #### [id number] # ### MARCUS WilcoxChem [address] [place] [address] Basophils/100 WBC (Bld) 0.3 0.0-2.0 % Normal 2018 [facility] (00 000) Comment: Order Comment: Order Added erma Aldana Expert. Performed By: #### [id number] # ### MARCUS WilcoxChem [address] [place] [address] Eos Absolute 0.1 0.0-0.7 E3/mcL Normal 11-17-2018 [facility] (92629) Comment: Order Comment: Order Added b y Discern Expert. Performed By: #### [id number] # ### MARCUS JeriChem [address] [place] [address] Eosinophils/100 WBC (Bld) 2.4 0.0-11.0 % Normal 10-20 [facility] (00 000) Comment: Order Comment: Order Added erma Aldana Expert. Performed By: #### [id number] # ### MARCUS JeriTicketFire [address] [place] [address] Lymphocytes (Bld) [#/Vol] 1.2 1.2-3.4 E3/mcL Normal 10-20 [facility] tem (35951) Comment: Order Comment: Order Added erma Aldana Expert. Performed By: #### [id number] # ### MARCUS WilcoxChem [address] [place] [address] Lymphocytes/100 WBC (Bld) 27.6 20.0-55.0 % Normal 10-20 [facility] (40491) Comment: Order Comment: Order Added erma lizama Discern Expert. Performed By: #### [id number] # ### MARCUS RemChem [address] [place] [address] [place] Absolute 0.4 0.0-0.7 E3/mcL Normal 11-17-2018 [facility] (89141) Comment: Order Comment: Order Added b y Discern Expert. Performed By: #### [id number] # ### MARCUS Rem[employer] [address] [place] [address] Monocytes/100 WBC (Bld) 8.8 0.0-10.0 % Normal 2018 [facility] (00 000) Comment: Order Comment: Order Added erma Aldana Expert. Performed By: #### [id number] # ### MARCUS Zelaya [facility] [place] [id number] Neutro Absolute 2.5 1.4-6.5 E3/mcL Normal 11-17-2018 [facility] (82040) Comment: Order Comment: Order Added erma Aldana Expert. Performed By: #### [id number] # ### MARCUS Zelaya [address] [place] [address] Neutro Auto 60.4 37.0-75.0 % Normal 11-17-2018 [facility] (03210) Comment: Order Comment: Order Added erma Aldana Expert. Performed By: #### [id number] # ### MARCUS [place] [id number] lab miscellaneous o n 2018-10-28 Status See Ref Lab Report Normal 10-28-2018 [facility] ([id number]) Comment: Performed By: #### [id number] # ### MARCUS Kostascorky [address] [place], [place] [id number] zzplt morph on 2018 Platelet morphology finding NORMAL Normal [facility] (00 000) Comment: Performed By: #### [id number] # ### MARCUS Kenyoncorky [facility] [place] [id number] Platelets (d) [#/Vol] DECREASED Normal 2018 [facility] (00 000) Comment: Performed By: #### [id number] # ### MARCUS Kostascorky [address] [place], [place] [id number] valproic acid on 05-11-08 Valpro Acid Lvl 91 50-100 microgram/mL Normal 10-26-2018 [facility] (00 000) Comment: Performed By: #### [id number] # ### MARCUS Kostaso [address] [place], [place] [id number] manual diff on 2018 Band form neutrophils/100 WBC 1 0-1 Normal 10-26-2018 [facility] (d) System (00 000) Comment: Order Comment: Order Added erma Aldana Expert. Performed By: #### [id number] # ### MARCUS WilcoxHemo [address] [place] [address] Basophil Man 0 0-1 % Normal 10-26-2018 [facility] (87323) Comment: Order Comment: Order Added b dl Discern Expert. Performed By: #### [id number] # ### MARCUS WilcoxHemo [address] [place] [address] Eosinophils/100 WBC (Bld) 3 0-5 % Normal [facility] (71398) Comment: Order Comment: Order Added b y Discern Expert. Performed By: #### [id number] # ### MARCUS WilcoxHemo [address] [place] [address] Lymphocytes/100 WBC (Bld) 37 14-48 % Normal [facility] (00 000) Comment: Order Comment: Order Added b y Discern Expert. Performed By: #### [id number] # ### MARCUS JeriHemo [address] [place] [address] Monocyte Man 8 1-11 % Normal 10-26-2018 [facility] (33215) Comment: Order Comment: Order Added b y Discern Expert. Performed By: #### [id number] # ### MARCUS JeriHemo [address] [place] [address] RBC morphology finding Nom NORMAL Normal [facility] (00 000) Comment: Order Comment: Order Added b y Discern Expert. Performed By: #### [id number] # ### MARCUS JeriHemo [address] [place] [address] Segs Man 51 37-75 % Normal 10-26-2018 [facility] (54792) Comment: Order Comment: Order Added b y Discern Expert. Performed By: #### [id number] # ### MARCUS JeriHemo [address] [place] [address] lab miscellaneous o n 2018-10-26 Test Name topamax Normal 10-26-2018 [facility] (47563) Comment: Performed By: #### [id number] # ### MARCUS JeriHemo [address] [place] [address] egfr on 2018-10-26 GFR/1.73 sq M predicted 45 mL/min/1.73 m2 Normal 0 10-26-2018 [facility] among non-blacks MDRD [facility] (36130) (S/P/Bld) [Vol rate/Area] Comment: Order Comment: Order Added erma y Katya Expert. Performed By: #### [id number] # ### MARCUS Kenyono [facility] [place] [address] GFR/1.73 sq M predicted 37 mL/min/1.73 m2 Normal 0 10-26-2018 [facility] among non-blacks [facility] (46746) (S/P/Bld) [Vol rate/Area] Comment: Order Comment: Order Added erma Aldana Expert. Performed By: #### [id number] # ### MARCUS Kenyon[address] [address] cmp on 2018-10-26 Albumin [Mass/Vol] 4.2 3.4-5.0 gm/dL Normal 10-26-2018 [facility] (00 000) Comment: Performed By: #### [id number] # ### MARCUS Kenyono [address] [place] [address] Albumin/Globulin [Mass 1.6 1.1-1.9 ratio Normal 019 [facility] (60834) Comment: Performed By: #### [id number] # ### MARCUS Kenyono [facility] [place] [address] Alk Phos 66 33-110 Int._Unit/L Normal 10-26-2018 [facility] (85180) Comment: Performed By: #### [id number] # ### MARCUS Kenyono [facility]5 [place] [address] ALT [Catalytic 22 7-45 Int._Unit/L Normal 10-26-2018 [facility] activity/Vol [facility] (95755) Comment: Performed By: #### [id number] # ### MARCUSShawn WilcoxHemo [facility]5 [place] [address] Anion gap [Moles/Vol] 12 10-20 mEq/L Normal 10-26-19 19 [facility] (00 000) Comment: Performed By: #### [id number] # ### MARCUS WilcoxHemo [address] [place] [address] AST [Catalytic 33 9-39 Int._Unit/L Normal 10-26-2018 [facility] (38326) Comment: Performed By: #### [id number] # ### MARCUS WilcoxHemo [address] [place] [address] Bili Total 0.38 0.00-1.20 mg/dL Normal 10-26-2018 [facility] (09155) Comment: Performed By: #### [id number] # ### MARCUS WilcoxHemo [address] [place] [address] Calcium [Mass/Vol] 9.2 8.6-10.3 mg/dL Normal 10-26-2018 [facility] (00 000) Comment: Performed By: #### [id number] # ### MARCUS WilcoxHemo [facility] [place] [address] Chloride [Moles/Vol] 110 98-107 mEq/L High [facility] () Comment: Performed By: #### [id number] # ### MARCUS WilcoxHemo [address] [place] [address] CO2 [Moles/Vol] 24.0 21.0-32.0 mEq/L Normal 10-26-2018 [facility] (00 000) Comment: Performed By: #### [id number] # ### MARCUS WilcoxHemo [address] [place] [address] Creatinine [Mass/Vol] 1.5 0.5-1.1 mg/dL High 10-26-19 19 [facility] (00 000) Comment: Performed By: #### [id number] # ### MARCUS RemHemo [address] [place] [address] Globulin (S) [Mass/Vol] 3.0 2.0-4.0 G/DL Normal 2018 [facility] (00 000) Comment: Performed By: #### [id number] # ### MARCUS RemHemo [address] [place] [address] Glucose [Mass/Vol] 97 70-99 mg/dL Normal 10-26-2018 [facility] (98078) Comment: Performed By: #### [id number] # ### MARCUS WilcoxHemo [address] [place] [address] Potassium [Moles/Vol] 4.9 3.5-5.3 mEq/L Normal 10-26-19 [facility] (00 000) Comment: Performed By: #### [id number] # ### MARCUS WilcoxHemo [address] [place] [address] Protein [Mass/Vol] 6.9 6.4-8.2 gm/dL Normal 10-26-2018 [facility] (00 000) Comment: Performed By: #### [id number] # ### MARCUS WilcoxHemo [facility] [place] [address] Sodium [Moles/Vol] 141 136-145 mEq/L Normal 10-26-2018 [facility] (00 000) Comment: Performed By: #### [id number] # ### MARCUS WilcoxHemo [facility] [place] [address] Urea nitrogen [Mass/Vol] 17 6-23 mg/dL Normal 10-26 [facility] (00 000) Comment: Performed By: #### [id number] # ### MARCUS WilcoxHemo [address] [place] [address] Urea nitrogen/Creatinine 11.3 5.4-30.0 ratio Normal 10-26 [facility] [Mass ratio] [facility] (66129) Comment: Performed By: #### [id number] # ### MARCUS JeriHemo [facility] [place] [address] cbc w/ auto diff on 2018-10-26 Erythrocyte distribution 13.2 11.5-14.5 % Normal 10-26 [facility] width (RBC) [Ratio] [facility] (10178) Comment: Performed By: #### [id number] # ### MARCUS WilcoxHemo [facility] [place] [address] Hematocrit (Bld) [Volume 44.4 36.0-48.0 % Normal 10-26 [facility]] [facility] (86913) Comment: Performed By: #### [id number] # ### MARCUSShawn WilcoxHemo [facility]5 [place] [address] Hemoglobin (Bld) 14.8 12.0-16.0 G/DL Normal 10-26-2018 [facility] [Mass/Vol] Health Sy stem (68660) Comment: Performed By: #### [id number] # ### MARCUS WilcoxHemo [address] [place] [address] MCH (RBC) [Entitic mass] 30.7 27.0-31.0 pg Normal 10-26 [facility] (00 000) Comment: Performed By: #### [id number] # ### MARCUS WilcoxHemo [facility] [place] [address] MCHC (RBC) [Mass/Vol] 33.3 33.0-37.0 G/DL Normal 10-26-19 19 [facility] () Comment: Performed By: #### [id number] # ### MARCUS WilcoxHemo [facility] [place] [address] MCV (RBC) [Entitic vol] 92.1 78.0-100.0 fL Normal 10-26 [facility] (95282) Comment: Performed By: #### [id number] # ### MARCUS WilcoxHemo [facility] [place] [address] Platelet mean volume 7.8 7.4-11.0 fL Normal 9 [facility] (Bld) [Entitic vol] System (35765) Comment: Performed By: #### [id number] # ### MARCUS RemHemo [facility] [place] [address] Platelets (Bld) [#/Vol] 93 130-400 E3/mcL Low 2018 [facility] ( 000) Comment: Performed By: #### [id number] # ### MARCUS RemHemo [address] [place] [address] RBC (Bld) [#/Vol] 4.82 3.90-5.40 E6/mcL Normal 10-26-2018 [facility] (00 000) Comment: Performed By: #### [id number] # ### MARCUS RemHemo [address] [place] [address] WBC (Bld) [#/Vol] 4.7 3.6-11.0 E3/mcL Normal 10-26-2018 [facility] (00 000) Comment: Performed By: #### [id number] # ### MARCUS RemHemo [address] [place] [address] xr spine lumbosacral 2 or 3 views on 2018-10-14 XR Spine Lumbosacral Exam Date/Time: Normal [facility] 2 or 3 Views 10/14/2018 15:28 [facility] Reason for Exam: (00 000) Back pain Report STUDY: XR Spine Lumbosacral 2 or 3 Views; 10/14/2018 3:28 pm INDICATION: Back pain. COMPARISON: 01/21/2017 ACCESSION NUMBER(S): [id number] ORDERING CLINICIAN: Moi De La Cruz FINDINGS: [...] pm Signed by: Bhupinder Berger MD Technologist: [facility] ua complete on 2017 Color (U) Yellow Yellow Normal 10-14-2018 [facility] (44378) Comment: Performed By: #### [id number] # ### MARCUS RemHemo [facility] [place] [address] Glucose (U) [Mass/Vol] Negative Negative mg/dL Normal 018 [facility] (90674) Comment: Performed By: #### [id number] # ### MARCUS RemHemo [address] [place] [address] Ketones Ql (U) Negative Negative Normal 10-14-2018 [facility] (16504) Comment: Performed By: #### [id number] # ### MARCUS RemHemo [facility] [place] [address] RBC (U) [#/Vol] 10-20 0-3 Abnormal 10-14-2018 [facility] (72440) Comment: Performed By: #### [id number] # ### MARCUS WilcoxHemo [address] [place] [address] UA Blood Negative Negative Normal 10-14-2018 [facility] (04463) Comment: Performed By: #### [id number] # ### MARCUS WilcoxHemo [address] [place] [address] UA Clarity Cloudy Clear Abnormal 10-14-2018 [facility] (94974) Comment: Performed By: #### [id number] # ### MARCUS WilcoxHemo [facility] [place] [address] UA Hyal Cast 5-10 0-2 Abnormal 10-14-2018 [facility] (40032) Comment: Performed By: #### [id number] # ### MARCUS WilcoxHemo [facility] [place] [address] UA Leuk Est 3+ Negative Abnormal 10-14-2018 [facility] (41083) Comment: Performed By: #### [id number] # ### MARCUS WilcoxHemo [address] [place] [address] UA Mucous Trace Trace Abnormal 10-14-2018 [facility] (93684) Comment: Performed By: #### [id number] # ### MARCUS WilcoxHemo [address] [place] [address] UA Nitrite Negative Negative Normal 10-14-2018 [facility] (68933) Comment: Performed By: #### [id number] # ### MARCUS WilcoxHemo [address] [place] [address] UA pH 7.0 4.6-8.0 Normal 10-14-2018 [facility] (87888) Comment: Performed By: #### [id number] # ### MARCUS WilcoxHemo [address] [place] [address] UA Protein Negative Negative Normal 10-14-2018 [facility] (59568) Comment: Performed By: #### [id number] # ### MARCUS WilcoxHemo [address] [place] [address] UA Spec Grav 1.016 1.003-1.030 Normal 10-14-2018 [facility] (82030) Comment: Performed By: #### [id number] # ### MARCUS WilcoxHemo [address] [place] [address] UA Squam Epithelial >30 0-5 Abnormal 10-14-2018 [facility] (37819) Comment: Performed By: #### [id number] # ### MARCUS WilcoxHemo [address] [place] [address] UA Urobilinogen Negative Normal 10-14-2018 [facility] (26797) Comment: Result Comment: Due to a man ufacturing issue, low positive urobilinogen results may be fasely positi ve. Correlate with urine bilirubin and additional clinical/laborato ry findings to assess the risk of hemolytic anemia or liver disease. If clinically indicated, repeat testing with an alternate method is availabl e by contacting the laboratory within 24 hours. Performed By: #### [id number] # ### MARCUS WilcoxHemo [address] [place] [address] UA WBC 10-20 0-5 Abnormal 10-14-2018 [facility] (33425) Comment: Performed By: #### [id number] # ### MARCUS WilcoxHemo [address] [place] [address] Urobilinogen Qn (U) Negative Negative Normal 10-14-2018 [facility] (00 000) Comment: Performed By: #### [id number] # ### MARCUS WilcoxHemo [facility] [place] [address] xr chest ap portable on 2018-10-02 XR Chest AP Exam Date/Time: Normal 10-02-2018 [facility] Portable 10/02/2018 11:20 [facility] Reason for Exam: (00 000) Chest pain Report STUDY: XR Chest AP Portable; 10/02/2018 11:20 am INDICATION: Chest pain. COMPARISON: 12/15/2017 ACCESSION NUMBER(S): [id number] ORDERING CLINICIAN: oMi De La Cruz FINDINGS: Surgical changes associated [...] Troponin I.cardiac <.01 .00-.03 ng/mL Normal 10-02-2018 [facility] [Mass/Vol] [facility] (92303) Comment: Performed By: #### [id number] # ### [facility] JeriZeterao [facility] [place] [address] Troponin I.cardiac .01 .00-.03 ng/mL Normal 10-02-2018 [facility] [Mass/Vol] [facility] (51970) Comment: Performed By: #### [id number] #### [address] [address] ptt on 2018-10-02 aPTT Coag (Bld) 28.3 23.2-36.4 second(s) Normal 10-02-2018 [facility] [Time] [facility] tem (70959) Comment: Performed By: #### [id number] #### MARCUSShawn WilcoxZeterao [address] [place] [address] ptt control ratio o n 2018-10-02 PTT Ratio 0.9 0.8-1.2 ratio Normal 10-02-2018 [facility] (36833) Comment: Order Comment: Order added b y Discern Expert. Performed By: #### [id number] #### M[facility]USShawn [facility]5 [place] [address] pt on 2018-10-02 INR Coag (PPP) [Relative 1.1 1.0-1.2 {INR} Normal 10-02 [facility] tem (87163) Comment: Result Comment: INR Recommen ded Therapeuptic Ranges: Prophylaxis/treatment of DVT and PE?2.0-3.0 Prevention of systemic embol ism?.2.0-3.0 Mechanical prosthetic values ?2.5-3.5 CRITICAL VALUES?.>4.0 Performed By: #### [id number] #### MARCUS [place] [address] [place] [address] PT Coag (PPP) [Time] 13.2 11.6-14.6 second(s) Normal 8 [facility] (36360) Comment: Performed By: #### [id number] #### MARCUS [address] [address] manual diff on 2017 Anisocytosis Ql (Bld) 2+ Normal 10-02-20 18 [facility] (00976) Comment: Order Comment: Order Added erma Aldana Expert. Performed By: #### [id number] #### MARCUS [address] [address] Band form neutrophils/100 WBC 6 0-1 High 10-02-2018 [facility] (d) System (00 000) Comment: Order Comment: Order Added erma Aldana Expert. Performed By: #### [id number] #### MARCUS Kenyono [address] [place] [address] Basophil Man 0 0-1 % Normal 10-02-2018 [facility] (53481) Comment: Order Comment: Order Added erma Aldana Expert. Performed By: #### [id number] #### MARCUS Kenyono [address] [place] [address] Eosinophils/100 WBC (Bld) 1 0-5 % Normal 09-17 [facility] (81477) Comment: Order Comment: Order Added erma Aldana Expert. Performed By: #### [id number] #### [facility]USShawn [facility]Sy[facility] Hospital[facility] [address] [place] [address] Lymphocytes/100 WBC (Bld) 37 14-48 % Normal 09-17 [facility] (00 000) Comment: Order Comment: Order Added b y Discern Expert. Performed By: #### [id number] #### MARCUS WilcoxHemo [address] [place] [address] Fortine Man 3 0-0 % High 10-02-2018 [facility] (32909) Comment: Order Comment: Order Added b y Discern Expert. Performed By: #### [id number] #### MARCUS WilcoxHemo [address] [place] [address] Monocyte Man 10 1-11 % Normal 10-02-2018 [facility] (69709) Comment: Order Comment: Order Added b y Discern Expert. Performed By: #### [id number] #### MARCUSShawn WilcoxHemo [address] [place] [address] Poikilocytosis 1+ Normal 10-02-2018 [facility] (64954) Comment: Order Comment: Order Added b y Discern Expert. Performed By: #### [id number] #### MARCUSShawn WilcoxHemo [facility] [place] [id number] Polychromasia 1+ Normal 10-02-2018 [facility] (47227) Comment: Order Comment: Order Added b y Discern Expert. Performed By: #### [id number] #### MARCUSShawn WilcoxZeterao [facility] [place] [id number] RBC morphology finding SEE MORPHOLOGY Normal [facility] (97887) Comment: Order Comment: Order Added b y Discern Expert. Performed By: #### [id number] #### MARCUSShawn WilcoxHemo [address] [place] [address] Segs Man 43 37-75 % Normal 10-02-2018 [facility] (59767) Comment: Order Comment: Order Added b y Discern Expert. Performed By: #### [id number] #### MARCUSShawn WilcoxZeterao [facility] [place] [address] magnesium on 2017-10 2-16 Magnesium [Mass/Vol] 1.9 1.6-2.4 mg/dL Normal 8 [facility] (00 000) Comment: Performed By: #### [id number] #### MARCUSShawn WilcoxHemo [address] [place] [address] egfr on 2018-10-02 GFR/1.73 sq M predicted 53 mL/min/1.73 m2 Normal 1 12-03-2017 [facility] among non-blacks [facility] (28478) (S/P/Bld) [Vol rate/Area] Comment: Order Comment: Order added b y Katya Expert. Performed By: #### [id number] #### MARCUS JeriHemo [address] [place] [address] GFR/1.73 sq M predicted 44 mL/min/1.73 m2 Normal 1 12-03-2017 [facility] among non-blacks [facility] (75747) (S/P/Bld) [Vol rate/Area] Comment: Order Comment: Order added b dl Aldana Expert. Performed By: #### [id number] #### MARCUS JeriHemo [facility] [place] [address] cbc w/ auto diff on 2018-10-02 Erythrocyte distribution 13.1 11.5-14.5 % Normal 10-02 [facility] width (RBC) [Ratio] Health System (46665) Comment: Performed By: #### [id number] #### MARCUS RemHemo [address] [place] [address] Hematocrit (Bld) [Volume 40.9 36.0-48.0 % Normal 10-02 [facility] fraction] Health Sys tem (63677) Comment: Performed By: #### [id number] #### MARCUS JeriHemo [address] [place] [address] Hemoglobin (Bld) 13.7 12.0-16.0 G/DL Normal 10-02-2018 [facility] [Mass/Vol] Health [facility] (56885) Comment: Performed By: #### [id number] #### MARCUS RemHemo [address] [place] [address] MCH (RBC) [Entitic mass] 31.0 27.0-31.0 pg Normal 10-02 [facility] (00 000) Comment: Performed By: #### [id number] #### MARCUS RemHemo [address] [place] [address] MCHC (RBC) [Mass/Vol] 33.7 33.0-37.0 G/DL Normal 10-02-20 [facility] (00 000) Comment: Performed By: #### [id number] #### MARCUS WilcoxHemo [facility] [place] [address] MCV (RBC) [Entitic vol] 92.1 78.0-100.0 fL Normal 10-02 [facility] (30018) Comment: Performed By: #### [id number] #### MARCUS WilcoxHemo [facility] [place] [address] Platelet mean volume 8.4 7.4-11.0 fL Normal [facility] (Bld) [Entitic vol] System (70086) Comment: Performed By: #### [id number] #### MARCUS WilcoxHemo [facility] [place] [address] Platelets (Bld) [#/Vol] 82 130-400 E3/mcL Low 2017 [facility] (00 000) Comment: Performed By: #### [id number] #### MARCUSShawn WilcoxHemo [address] [place] [address] RBC (Bld) [#/Vol] 4.44 3.90-5.40 E6/mcL Normal 10-02-2018 [facility] (00 000) Comment: Performed By: #### [id number] #### MARCUSShawn WilcoxHemo [address] [place] [address] WBC (Bld) [#/Vol] 5.3 3.6-11.0 E3/mcL Normal 10-02-2018 [facility] (00 000) Comment: Performed By: #### [id number] #### MARCUSShawn WilcoxHemo [address] [place] [address] bmp on 2018-10-02 Anion gap [Moles/Vol] 9 10-20 mEq/L Low 10-02-20 18 [facility] (64883) Comment: Performed By: #### [id number] #### [facility] [address] [place] [address] Calcium [Mass/Vol] 8.4 8.6-10.3 mg/dL Low 10-02-2018 [facility] (82532) Comment: Performed By: #### [id number] #### MARCUS WilcoxHemo [address] [place] [address] Chloride [Moles/Vol] 111 98-107 mEq/L High 8 [facility] (00 000) Comment: Performed By: #### [id number] #### MARCUS RemHemo [address] [place] [address] CO2 [Moles/Vol] 22.0 21.0-32.0 mEq/L Normal 10-02-2018 [facility] ( 000) Comment: Performed By: #### [id number] #### MARCUS JeriHemo [facility] [place] [address] Creatinine [Mass/Vol] 1.3 0.5-1.1 mg/dL High 10-02-20 18 [facility] (00 000) Comment: Performed By: #### [id number] #### MARCUS RemHemo [facility] [place] [address] Glucose [Mass/Vol] 88 70-99 mg/dL Normal 10-02-2018 [facility] (34085) Comment: Performed By: #### [id number] #### MARCUS JeriHemo [facility] [place] [address] Potassium [Moles/Vol] 4.2 3.5-5.3 mEq/L Normal 10-02-20 18 [facility] (00 000) Comment: Performed By: #### [id number] #### MARCUS RemHemo [facility] [place] [address] Sodium [Moles/Vol] 138 136-145 mEq/L Normal 10-02-2018 [facility] ( 000) Comment: Performed By: #### [id number] #### MARCUS RemHemo [address] [place] [address] Urea nitrogen [Mass/Vol] 16 6-23 mg/dL Normal 10-02 [facility] (00 000) Comment: Performed By: #### [id number] #### MARCUS RemHemo [facility] [place] [address] Urea nitrogen/Creatinine 12.3 5.4-30.0 ratio Normal 10-02 [facility] [Mass ratio] [facility] (42955) Comment: Performed By: #### [id number] #### MARCUS Kenyoncorky [address] [place] [address] .manual abs on 2017 Basophil Abs Man 0.0 0.0-0.2 10x3/ Normal 10-02-2018 [facility] (81379) Comment: Order Comment: Order Added erma Aldana Expert. Performed By: #### [id number] #### MARCUSShawn Luong [address] [place] [address] Eos Abs Man 0.1 0.0-0.5 10x3/ Normal 10-02-2018 [facility] (63424) Comment: Order Comment: Order Added erma Aldana Expert. Performed By: #### [id number] #### MARCUS Ag [address] [place] [address] Lymph Abs Man 2.0 1.2-3.4 10x3/ Normal 10-02-2018 [facility] (92463) Comment: Order Comment: Order Added erma Aldana Expert. Performed By: #### [id number] #### MARCUS WilcoxRahul [address] [place] [address] [place] Abs Man 0.5 0.0-0.7 10x3/ Normal 10-02-2018 [facility] (35172) Comment: Order Comment: Order Added erma Aldana Expert. Performed By: #### [id number] #### MARCUSShawn Luogn [address] [place] [address] Segs Abs Man 2.3 1.4-6.5 10x3/ Normal 10-02-2018 [facility] (66010) Comment: Order Comment: Order Added erma Aldana Expert. Performed By: #### [id number] #### MARCUSShawn Luong [facility] [place] [address] c urine on C Urine Final Report: Moderate Normal 018 [facility] Normal skin joe isolated System (48050) Comment: Performed By: #### [id number] #### MARCUS WilcoxHemo [address] [place] [address] ua complete on 2017 Color (U) Yellow Yellow Normal 09-22-2018 [facility] (33407) Comment: Performed By: #### [id number] #### MARCUS WilcoxHemo [address] [place] [address] Glucose (U) [Mass/Vol] Negative Negative mg/dL Normal 018 [facility] (93606) Comment: Performed By: #### [id number] #### MARCUS WilcoxHemo [address] [place] [address] Ketones Ql (U) Negative Negative Normal 09-22-2018 [facility] (39794) Comment: Performed By: #### [id number] #### MARCUS WilcoxHemo [facility] [place] [address] RBC (U) [#/Vol] 20-50 0-3 Abnormal 09-22-2018 [facility] (36133) Comment: Performed By: #### [id number] #### MARCUS WilcoxHemo [facility] [place] [address] UA Blood Negative Negative Normal 09-22-2018 [facility] (93119) Comment: Performed By: #### [id number] #### MARCUS WilcoxHemo [address] [place] [address] UA Bacteria 2+ None /HPF Abnormal 09-22-2018 [facility] (39130) Comment: Performed By: #### [id number] #### MARCUSShawn WilcoxHemo [address] [place] [address] UA Clarity Cloudy Clear Abnormal 09-22-2018 [facility] (73508) Comment: Performed By: #### [id number] #### MARCUS RemHemo [address] [place] [address] UA Leuk Est 3+ Negative Abnormal 09-22-2018 [facility] (16551) Comment: Performed By: #### [id number] #### MARCUSShawn WilcoxHemo [address] [place] [address] UA Mucous Trace Trace Abnormal 09-22-2018 [facility] (45369) Comment: Performed By: #### [id number] #### MARCUS WilcoxHemo [address] [place] [address] UA Nitrite Negative Negative Normal 09-22-2018 [facility] (56008) Comment: Performed By: #### [id number] #### MARCUS Kenyono [facility] [place] [address] UA pH 7.0 4.6-8.0 Normal 09-22-2018 [facility] (05089) Comment: Performed By: #### [id number] #### MARCUS WilcoxHemo [facility] [place] [address] UA Protein Negative Negative Normal 09-22-2018 [facility] (48828) Comment: Performed By: #### [id number] #### MARCUS WilcoxHemo [facility] [place] [address] UA Spec Grav 1.014 1.003-1.030 Normal 09-22-2018 [facility] (99641) Comment: Performed By: #### [id number] #### MARCUS WilcoxHemo [address] [place] [address] UA Squam Epithelial >30 0-5 Abnormal 09-22-2018 [facility] (77619) Comment: Performed By: #### [id number] #### MARCUS WilcoxHemo [address] [place] [address] UA Urobilinogen Negative Normal 09-22-2018 [facility] (83180) Comment: Result Comment: Due to a man ufacturing issue, low positive urobilinogen results may be fasely positi ve. Correlate with urine bilirubin and additional clinical/laborato ry findings to assess the risk of hemolytic anemia or liver disease. If clinically indicated, repeat testing with an alternate method is availabl e by contacting the laboratory within 24 hours. Performed By: #### [id number] #### MARCUS WilcoxHemo [facility] [place] [address] UA WBC 20-50 0-5 Abnormal 09-22-2018 [facility] (27255) Comment: Performed By: #### [id number] #### MARCUS WilcoxHemo [facility] [place] [address] Urobilinogen Qn (U) Negative Negative Normal 09-22-2018 [facility] (00 000) Comment: Performed By: #### [id number] #### MARCUS Kenyono [facility] [place] [address] u bhcg qlt on 09-22 HCG.beta subunit Qn Neg Neg m[IU]/mL Normal 09-22-2018 [facility] (00 000) Comment: Performed By: #### [id number] #### MARCUS Kenyono [facility] [place] [address] lipase level on 201 05-29-06 Lipase Lvl 44 9-82 Int._Unit/L Normal 09-22-2018 [facility] (70829) Comment: Performed By: #### [id number] #### MARCUS Kenyono [facility] [place] [address] hep func panel on 2 Albumin [Mass/Vol] 4.7 3.4-5.0 gm/dL Normal 09-22-2018 [facility] (00 000) Comment: Performed By: #### [id number] #### MARCUS Kostaso [address] [place] [address] Albumin/Globulin [Mass 1.7 1.1-1.9 ratio Normal [address] [place] [address]] Health Sys tem (56070) Comment: Performed By: #### [id number] #### MARCUS Kostaso [facility] [place] [address] Alk Phos 67 33-110 Int._Unit/L Normal 09-22-2018 [facility] (50730) Comment: Performed By: #### [id number] #### MARCUS JeriHemo [facility] [place] [address] ALT [Catalytic 19 7-45 Int._Unit/L Normal 09-22-2018 [facility] activity/Vol] Health System (47210) Comment: Performed By: #### [id number] #### MARCUS JeriHemo [address] [place] [address] AST [Catalytic 31 9-39 Int._Unit/L Normal 09-22-2018 [facility] activity/Vol] Health System (12132) Comment: Performed By: #### [id number] #### MARCUS WilcoxHemo [address] [place] [address] Bili Direct 0.12 0.00-0.30 mg/dL Normal 09-22-2018 [facility] (70109) Comment: Performed By: #### [id number] #### MARCUS WilcoxHemo [address] [place] [address] Bili Indirect 0.53 mg/dL Normal 09-22-2018 [facility] (50992) Comment: Result Comment: No establish ed ranges available for the indirect bilirubin Performed By: #### [id number] #### MARCUS WilcoxHemo [address] [place] [address] Bili Total 0.65 0.00-1.20 mg/dL Normal 09-22-2018 [facility] (54788) Comment: Performed By: #### [id number] #### MARCUS WilcoxHemo [address] [place] [address] Globulin (S) [Mass/Vol] 3.0 2.0-4.0 G/DL Normal 2017 [facility] (00 000) Comment: Performed By: #### [id number] #### MARCUS WilcoxHemo [address] [place] [address] Protein [Mass/Vol] 7.4 6.4-8.2 gm/dL Normal 09-22-2018 [facility] (00 000) Comment: Performed By: #### [id number] #### MARCUS WilcoxHemo [address] [place] [address] egfr on 2018-09-22 GFR/1.73 sq M predicted 51 mL/min/1.73 m2 Normal 1 11-23-2017 [facility] among non-blacks [facility] (78466) (S/P/Bld) [Vol rate/Area] Comment: Order Comment: Order Added b y Discern Expert. Performed By: #### [id number] #### MARCUS WilcoxHemo [address] [place] [address] GFR/1.73 sq M predicted 42 mL/min/1.73 m2 Normal 1 11-23-2017 [facility] among non-blacks [facility] (38084) (S/P/Bld) [Vol rate/Area] Comment: Order Comment: Order Added erma Aldana Expert. Performed By: #### [id number] #### MARCUS Ag [address] [place] [address] ct abdomen/pelvis w/o contrast on 2018-09-22 CT Abdomen/Pelvis w/o Exam Date/Time: Normal Islam Contrast 09/22/2018 18:11 EST [facility] Reason for Exam: Sys tem (81553) Abdominal Pain;Other (please specify) Report STUDY: CT Abdomen/Pelvis w/o Contrast; 09/22/2018 6:11 pm INDICATION: Other (please specify). COMPARISON: CT dated 05/19/2018 ACCESSION NUMBER(S): [id number] ORDERING CLINICIAN: Shilpa Douglas TECHNIQUE: CT of [...] Erythrocyte distribution 13.6 11.5-14.5 % Normal 09-22 [facility] width (RBC) [Ratio] Health System (28793) Comment: Performed By: #### [id number] # ### MARCUS WilcoxHemo [address] [place] [address] Hematocrit (Bld) [Volume 50.0 36.0-48.0 % High 09-22 [facility] fraction] System (00 000) Comment: Performed By: #### [id number] # ### MARCUS WilcoxHemo [facility] [place] [address] Hemoglobin (Bld) 16.9 12.0-16.0 G/DL High 09-22-2018 [facility] [Mass/Vol] [facility] (43596) Comment: Performed By: #### [id number] # ### MARCUS WilcoxHemo [facility] [place] [address] MCH (RBC) [Entitic mass] 31.0 27.0-31.0 pg Normal 09-22 [facility] (00 000) Comment: Performed By: #### [id number] # ### MARCUS RemHemo [facility] [place] [address] MCHC (RBC) [Mass/Vol] 33.8 33.0-37.0 G/DL Normal 09-22-20 18 [facility] (00 000) Comment: Performed By: #### [id number] # ### MARCUSShawn WilcoxHemo [facility] [place] [address] MCV (RBC) [Entitic vol] 91.7 78.0-100.0 fL Normal 09-22 [facility] (20514) Comment: Performed By: #### [id number] # ### MARCUS RemHemo [address] [place] [address] Platelet mean volume 8.1 7.4-11.0 fL Normal 8 [facility] (Bld) [Entitic vol] System (44145) Comment: Performed By: #### [id number] # ### MARCUS RemHemo [facility] [place] [address] Platelets (Bld) [#/Vol] 123 130-400 E3/mcL Low 2017 [facility] () Comment: Performed By: #### [id number] # ### MARCUS WilcoxHemo [address] [place] [address] RBC (Bld) [#/Vol] 5.45 3.90-5.40 E6/mcL High 09-22-2018 [facility] () Comment: Performed By: #### [id number] # ### MARCUS WilcoxHemo [facility] [place] [address] WBC (Bld) [#/Vol] 6.6 3.6-11.0 E3/mcL Normal 09-22-2018 [facility] () Comment: Performed By: #### [id number] # ### MARCUS WilcoxHemo [facility] [place] [address] bmp on 2018-09-22 Anion gap [Moles/Vol] 12 10-20 mEq/L Normal 09-22-20 [facility] () Comment: Performed By: #### [id number] #### MARCUS WilcoxHemo [facility] [place] [address] Calcium [Mass/Vol] 9.4 8.6-10.3 mg/dL Normal 09-22-2018 [facility] () Comment: Performed By: #### [id number] #### MARCUS WilcoxHemo [facility] [place] [address] Chloride [Moles/Vol] 110 98-107 mEq/L High [facility] () Comment: Performed By: #### [id number] #### MARCUS WilcoxHemo [address] [place] [address] CO2 [Moles/Vol] 22.0 21.0-32.0 mEq/L Normal 09-22-2018 [facility] () Comment: Performed By: #### [id number] #### MARCUS RemHemo [address] [place] [address] Creatinine [Mass/Vol] 1.4 0.5-1.1 mg/dL High 09-22-20 [facility] () Comment: Performed By: #### [id number] #### MARCUS WilcoxHemo [address] [place] [address] Glucose [Mass/Vol] 93 70-99 mg/dL Normal 09-22-2018 [facility] (93057) Comment: Performed By: #### [id number] #### MARCUS Kenyono [address] [place] [address] Potassium [Moles/Vol] 4.7 3.5-5.3 mEq/L Normal 09-22-20 18 [facility] (00 000) Comment: Performed By: #### [id number] #### [facility] [address] [place] [address] Sodium [Moles/Vol] 139 136-145 mEq/L Normal 09-22-2018 [facility] (00 000) Comment: Performed By: #### [id number] #### MARCUS Kenyono [address] [place] [address] Urea nitrogen [Mass/Vol] 15 6-23 mg/dL Normal 09-22 [facility] (00 000) Comment: Performed By: #### [id number] #### MARCUS Kenyono [address] [place] [address] Urea nitrogen/Creatinine 10.7 5.4-30.0 ratio Normal 09-22 [facility] [Mass ratio] [facility] (40193) Comment: Performed By: #### [id number] #### MARCUS Kenyon[address] [address] auto diff on 2017-10 2 Basophils (Bld) [#/Vol] 0.0 0.0-0.2 E3/mcL Normal 2017 [facility] (26237) Comment: Order Comment: Order Added b y Discern Expert. Performed By: #### [id number] #### MARCUSShawn Kenyono [address] [place] [address] Basophils/100 WBC (Bld) 0.4 0.0-2.0 % Normal 2017 [facility] (00 000) Comment: Order Comment: Order Added b y Discern Expert. Performed By: #### [id number] #### MARCUS RemHemo [address] [place] [address] [place] [address] Eos Absolute 0.1 0.0-0.7 E3/mcL Normal 09-22-2018 [facility] (08578) Comment: Order Comment: Order Added erma Aldana Expert. Performed By: #### [id number] #### MARCUS WilcoxHemo [address] [place] [address] Eosinophils/100 WBC (Bld) 1.6 0.0-11.0 % Normal [facility] (00 000) Comment: Order Comment: Order Added erma Aldana Expert. Performed By: #### [id number] #### MARCUS RemHemo [address] [place] [address] Lymphocytes (Bld) [#/Vol] 2.0 1.2-3.4 E3/mcL Normal [facility] (59066) Comment: Order Comment: Order Added erma Aldana Expert. Performed By: #### [id number] #### MARCUS WilcoxHemo [address] [place] [address] Lymphocytes/100 WBC (Bld) 30.2 20.0-55.0 % Normal [facility] (26390) Comment: Order Comment: Order Added erma Aldana Expert. Performed By: #### [id number] #### MARCUS RemHemo [address] [place] [address] [place] Absolute 0.6 0.0-0.7 E3/mcL Normal 09-22-2018 [facility] (75953) Comment: Order Comment: Order Added erma Aldana Expert. Performed By: #### [id number] #### MARCUS RemHemo [address] [place] [address] Monocytes/100 WBC (Bld) 9.0 0.0-10.0 % Normal 2017 [facility] (00 000) Comment: Order Comment: Order Added erma Aldana Expert. Performed By: #### [id number] #### MARCUS RemHemo [address] [place] [address] Neutro Absolute 3.9 1.4-6.5 E3/mcL Normal 09-22-2018 [facility] (89092) Comment: Order Comment: Order Added erma Aldana Expert. Performed By: #### [id number] #### MARCUS RemHemo [address] [place] [address] Neutro Auto 58.8 37.0-75.0 % Normal 09-22-2018 [facility] (68032) Comment: Order Comment: Order Added erma Aldana Expert. Performed By: #### [id number] #### MARCUS RemHemo [address] [place] [address] c urine on C Urine Final Report: Few Mixed skin Normal 1 [facility] (74336) Comment: Performed By: #### [id number] # ### MARCUS Microbiology Subsection [address] [place] [address] ua complete on 2017 Color (U) Yellow Yellow Normal 08-15-2018 [facility] (44148) Comment: Order Comment: Straight Cath as needed Performed By: #### [id number] #### MARCUS Urinalysis Automated Suggs bsection [address] [place] [address] Glucose (U) [Mass/Vol] 1+ Negative Abnormal 018 [facility] (00 000) Comment: Order Comment: Straight Cath as needed Performed By: #### [id number] #### MARCUS Urinalysis Automated [employer] bsection [address] [place] [address] Ketones Ql (U) Negative Negative Normal 08-15-2018 [facility] (59570) Comment: Order Comment: Straight Cath as needed Performed By: #### [id number] #### MARCUS Urinalysis Automated [employer] bsection [address] [place] [address] RBC (U) [#/Vol] 0-3 0-3 Normal 08-15-2018 [facility] (12602) Comment: Order Comment: Straight Cath as needed Performed By: #### [id number] #### MARCUS Urinalysis Automated [employer] bsection [address] [place] [address] UA Blood Negative Negative Normal 08-15-2018 [facility] (51299) Comment: Order Comment: Straight Cath as needed Performed By: #### [id number] #### MARCUS Urinalysis Automated [employer] bsection [address] [place] [address] UA Bacteria Trace None Abnormal 08-15-2018 [facility] (03618) Comment: Order Comment: Straight Cath as needed Performed By: #### [id number] #### MARCUS Urinalysis Automated [employer] bsection [address] [place] [address] UA Clarity SltCloudy Clear Abnormal 08-15-2018 [facility] (36977) Comment: Order Comment: Straight Cath as needed Performed By: #### [id number] #### MARCUS Urinalysis Automated [employer] bsection [address] [place] [address] UA Hyal Cast 0-2 0-2 Normal 08-15-2018 [facility] (34472) Comment: Order Comment: Straight Cath as needed Performed By: #### [id number] #### MARCUS Urinalysis Automated [employer] bsection [address] [place] [address] UA Leuk Est 1+ Negative Abnormal 08-15-2018 [facility] (03997) Comment: Order Comment: Straight Cath as needed Performed By: #### [id number] #### MARCUS Urinalysis Automated [employer] bsection [address] [place] [address] UA Mucous Trace Trace Abnormal 08-15-2018 [facility] (09391) Comment: Order Comment: Straight Cath as needed Performed By: #### [id number] #### MARCUS Urinalysis Automated [employer] bsection [address] [place] [address] UA Nitrite Negative Negative Normal 08-15-2018 [facility] (39903) Comment: Order Comment: Straight Cath as needed Performed By: #### [id number] #### MARCUS Urinalysis Automated [employer] bsection [address] [place] [address] UA pH 7.0 4.6-8.0 Normal 08-15-2018 [facility] (47211) Comment: Order Comment: Straight Cath as needed Performed By: #### [id number] #### MARCUS Urinalysis Automated [employer] bsection [address] [place] [address] UA Protein Negative Negative Normal 08-15-2018 [facility] (27220) Comment: Order Comment: Straight Cath as needed Performed By: #### [id number] #### MARCUS Urinalysis Automated [employer] bsection [address] [place] [address] UA Spec Grav 1.012 1.003-1.030 Normal 08-15-2018 [facility] (95852) Comment: Order Comment: Straight Cath as needed Performed By: #### [id number] #### MARCUS Urinalysis Automated [employer] bsection [address] [place] [address] UA Squam Epithelial 5-10 0-5 Abnormal 08-15-2018 [facility] (81755) Comment: Order Comment: Straight Cath as needed Performed By: #### [id number] #### MARCUS Urinalysis Automated [employer] bsection [address] [place] [address] UA Urobilinogen Negative Normal 08-15-2018 [facility] (96954) Comment: Order Comment: Straight Cath as needed Performed By: #### [id number] #### MARCUS Urinalysis Automated [employer] bsection [address] [place] [address] UA WBC 10-20 0-5 Abnormal 08-15-2018 [facility] (45894) Comment: Order Comment: Straight Cath as needed Performed By: #### [id number] #### MARCUS Urinalysis Automated [employer] bsection [address] [place] [address] Urobilinogen Qn (U) Negative Negative Normal 08-15-2018 [facility] (00 000) Comment: Order Comment: Straight Cath as needed Performed By: #### [id number] #### MARCUS Urinalysis Automated [employer] bsection [address] [place] [address] zzplt morph on 2017 Platelet morphology finding NORMAL Normal [facility] (d) System (00 000) Comment: Performed By: #### [id number] #### MARCUS RemHemo [address] [place] [address] Platelets (d) [#/Vol] DECREASED Normal 2017 [facility] (00 000) Comment: Performed By: #### [id number] #### MARCUS [place] [id number] tsh on 2018-08-14 TSH Qn 2.16 0.30-5.60 mcIU/mL Normal 08-14-2018 [facility] (69803) Comment: Order Comment: With T4fr Ref kurt Performed By: #### [id number] # ### MARCUSShawn WilcoxK[place] [id number] morph on 2018-08-14 Anisocytosis Ql (Bld) 1+ Normal 08-14-20 18 [facility] (68781) Comment: Order Comment: Order Added b y Discern Expert. Performed By: #### [id number] #### MARCUS [place] [id number] RBC morphology finding SEE MORPHOLOGY Normal [facility] (84017) Comment: Order Comment: Order Added b y Discern Expert. Performed By: #### [id number] #### MARCUS [place] [id number] egfr on 2018-08-14 GFR/1.73 sq M predicted 53 mL/min/1.73 m2 Normal 1 [facility] among non-blacks [facility] (93534) (S/P/Bld) [Vol rate/Area] Comment: Order Comment: Order added b y Discern Expert. Performed By: #### [id number] #### M[place]USShawn [place] [id number] GFR/1.73 sq M predicted 44 mL/min/1.73 m2 Normal 1 [facility] among non-blacks [facility] (53740) (S/P/Bld) [Vol rate/Area] Comment: Order Comment: Order added b y Discern Expert. Performed By: #### [id number] #### MARCUSShawn [place] [id number] cbc w/ auto diff on 2018-08-14 Erythrocyte distribution 13.2 11.5-14.5 % Normal 08-14 [facility] width (RBC) [Ratio] Health System (73828) Comment: Performed By: #### [id number] # ### MARCUS WilcoxHemo [address] [place] [address] Hematocrit (Bld) [Volume 42.1 36.0-48.0 % Normal 08-14 [facility] (45785) Comment: Performed By: #### [id number] # ### MARCUS WilcoxHemo [address] [place] [address] Hemoglobin (Bld) 14.1 12.0-16.0 G/DL Normal 08-14-2018 [facility] [Mass/Vol] Health Sy stem (78278) Comment: Performed By: #### [id number] # ### MARCUSShawn WilcoxHemo [facility] [place] [address] MCH (RBC) [Entitic mass] 30.8 27.0-31.0 pg Normal 08-14 [facility] (00 000) Comment: Performed By: #### [id number] # ### MARCUSShawn WilcoxHemo [address] [place] [address] MCHC (RBC) [Mass/Vol] 33.5 33.0-37.0 G/DL Normal 08-14-20 18 [facility] (00 000) Comment: Performed By: #### [id number] # ### MARCUSShawn WilcoxHemo [address] [place] [address] MCV (RBC) [Entitic vol] 91.7 78.0-100.0 fL Normal 08-14 [facility] (27497) Comment: Performed By: #### [id number] # ### MARCUSShawn WilcoxHemo [address] [place] [address] Platelet mean volume 8.8 7.4-11.0 fL Normal 8 [facility] (Bld) [Entitic vol] System (12745) Comment: Performed By: #### [id number] # ### [facility]ARCUS [facility] [place] [address] Platelets (Bld) [#/Vol] 78 130-400 E3/mcL Low 2017 [facility] (00 000) Comment: Performed By: #### [id number] # ### MARCUS [facility] [place] [address] RBC (Bld) [#/Vol] 4.60 3.90-5.40 E6/mcL Normal 08-14-2018 [facility] () Comment: Performed By: #### [id number] # ### MARCUS RemHemo [address] [place] [address] WBC (Bld) [#/Vol] 4.2 3.6-11.0 E3/mcL Normal 08-14-2018 [facility] () Comment: Performed By: #### [id number] # ### MARCUS RemHemo [address] [place] [address] bmp on 2018-08-14 Anion gap [Moles/Vol] 13 10-20 mEq/L Normal 08-14-20 [facility] () Comment: Performed By: #### [id number] # ### MARCUS [employer]Chem [address] [place] [address] Calcium [Mass/Vol] 8.3 8.6-10.3 mg/dL Low 08-14-2018 [facility] (17050) Comment: Performed By: #### [id number] # ### MARCUS [employer] [address] [place] [address] Chloride [Moles/Vol] 110 98-107 mEq/L High [facility] () Comment: Performed By: #### [id number] # ### MARCUS [employer]Chem [address] [place] [address] CO2 [Moles/Vol] 21.0 21.0-32.0 mEq/L Normal 08-14-2018 [facility] () Comment: Performed By: #### [id number] # ### MARCUS [employer] [address] [place] [address] Creatinine [Mass/Vol] 1.3 0.6-1.3 mg/dL Normal 08-14-20 [facility] () Comment: Performed By: #### [id number] # ### MARCUS [employer]Chem [address] [place] [address] Glucose [Mass/Vol] 122 70-99 mg/dL High 08-14-2018 [facility] (09411) Comment: Performed By: #### [id number] # ### MARCUS [employer] [address] [place] [address] Potassium [Moles/Vol] 3.3 3.5-5.3 mEq/L Low 08-14-20 [facility] () Comment: Performed By: #### [id number] # ### MARCUSShawn WilcoxChem [facility] [place] [address] Sodium [Moles/Vol] 141 136-145 mEq/L Normal 08-14-2018 [facility] () Comment: Performed By: #### [id number] # ### MARCUS [employer]Chem [address] [place] [address] Urea nitrogen [Mass/Vol] 13 6-23 mg/dL Normal 08-14 [facility] () Comment: Performed By: #### [id number] # ### MARCUSShawn WilcoxChem [address] [place] [address] Urea nitrogen/Creatinine 10.0 5.4-30.0 ratio Normal 08-14 [facility] [Mass ratio] [facility] (39291) Comment: Performed By: #### [id number] # ### MARCUSShawn WilcoxChem [address] [place] [address] auto diff on 2017-10 Basophils (Bld) [#/Vol] 0.0 0.0-0.2 E3/mcL Normal 2017 [facility] (37307) Comment: Order Comment: Order Added b y Discern Expert. Performed By: #### [id number] # ### MARCUS WilcoxHemo [address] [place] [address] Basophils/100 WBC (Bld) 0.7 0.0-2.0 % Normal 2017 [facility] () Comment: Order Comment: Order Added b y Discern Expert. Performed By: #### [id number] # ### MARCUS WilcoxHemo [facility] [place] [address] Eos Absolute 0.1 0.0-0.7 E3/mcL Normal 08-14-2018 [facility] ([id number]) Comment: Order Comment: Order Added b y Discern Expert. Performed By: #### [id number] # ### MARCUS RemHemo [address] [place] [address] Eosinophils/100 WBC (Bld) 2.2 0.0-11.0 % Normal 07-19 [facility] (00 000) Comment: Order Comment: Order Added b y Discern Expert. Performed By: #### [id number] # ### MARCUS RemHemo [address] [place] [address] Lymphocytes (Bld) [#/Vol] 1.4 1.2-3.4 E3/mcL Normal 07-19 [facility] tem (97595) Comment: Order Comment: Order Added b y Discern Expert. Performed By: #### [id number] # ### MARCUS WilcoxHemo [address] [place] [address] Lymphocytes/100 WBC (Bld) 32.5 20.0-55.0 % Normal 07-19 [facility] tem (37562) Comment: Order Comment: Order Added b y Discern Expert. Performed By: #### [id number] # ### MARCUS RemHemo [address] [place] [address] [place] Absolute 0.4 0.0-0.7 E3/mcL Normal 08-14-2018 [facility] (03492) Comment: Order Comment: Order Added b y Discern Expert. Performed By: #### [id number] # ### MARCUS WilcoxHemo [address] [place] [address] Monocytes/100 WBC (Bld) 9.7 0.0-10.0 % Normal 2017 [facility] (00 000) Comment: Order Comment: Order Added b y Discern Expert. Performed By: #### [id number] # ### MARCUS RemHemo [address] [place] [address] Neutro Absolute 2.3 1.4-6.5 E3/mcL Normal 08-14-2018 [facility] (32559) Comment: Order Comment: Order Added b y Discern Expert. Performed By: #### [id number] # ### [facility] RemHemo [address] [place] [address] Neutro Auto 54.9 37.0-75.0 % Normal 08-14-2018 [facility] (14394) Comment: Order Comment: Order Added b y Katya Expert. Performed By: #### [id number] # ### MARCUS WilcoxHemcorky [facility] [place] [address] culture, urine on Culture, Urine Test Name: Culture, Urine Normal 06-16-2018 [facility] Culture Status: [facility] Culture Report: No significant growth. ([id number]) Micro Source: Urine - clean catch Comment: Performed By: #### GLUX #### Unless otherwise noted, all testing performed by [facility] l [address] [place], [place] [address] CLIA: [id number] Cra: Ismael vines M.D. No panel information on 2018-06-16 Bilirubin Ql (U) Negative Negative Invalid 06-16-2018 [place] Interpretation (4321 5) Code Glucose Ql (U) Negative Normal, Invalid 06-16-2018 [facility] Negative Interpretation (4321 5) mg/dL Code Hemoglobin Test Large Negative Abnormal 06-16-2018 [facility]Health strip Ql (U) (68238) Interpretation and Abnormal Invalid 06-16-2018 [facility] review of Interpretation (4321 5) laboratory results Code Ketones Ql (U) Negative Negative Invalid 06-16-2018 [facility] mg/dL Interpretation (4321 5) Code Leukocyte esterase Small Negative Abnormal 06-16-2018 [facility] Test strip Ql (U) (4 3215) Nitrite Test strip Negative Negative Invalid 06-16-2018 [facility] Ql (U) Interpretation (4321 5) Code pH Test strip (U) 7.5 OTH - OTH [pH] Abnormal 06-16-2018 [facility] (72477) Protein Test strip Trace Negative Abnormal 06-16-2018 [facility] Ql (U) mg/dL (23724) Specific gravity 1.020 OTH - OTH Invalid [facility] (20342) (U) Code Urobilinogen Test 0.2 <2.0, 0.2, mg/d Invalid 06-16-2018 [facility] strip Qn (U) Normal, L Interpretation (4 3215) Negative, Code 1.0, 2.0, <1.0 cur on 2018-05-15 CUR . MICRO - MicrobiologyPROCEDURE: Normal 05-15-2018 [facility] Urine Culture [*1] ACCESSION: [facility] ([place]) (50022) [id number]: Urine, Straight BODY SITE: CatherizedCOLLECTED DATE/TIME: 05/13/2018 22:15 EDT RECEIVED DATE/TIME: 05/14/2018 17:17 EDTSTART DATE/TIME: 05/14/2018 17:17 EDT FREE TEXT SOURCE:PRELIMINARY REPORTSPreliminary Report []Verified Date/Time/Personnel: 05/15/2018 14:09 EDTCulture results pending.Performing Locations*1: This test was performed at: [facility], [address] [place] [address], [address] [place] [address] Comment: Performed By: #### CBC, ADIF F, ANEU ####[place] [address]#### L IP, CMP, GFR ####[place] [address] xr abdomen complete w/decub/erect on 2018-05-14 XR ABDOMEN COMPLETE ORIGINALSupine and Normal 0 05-14-2018 [facility] W/DECUB/ERECT upright views of the [facility] (MD) abdomen HISTORY: (00 000) Abdominal pain COMPARISON: [...] on 2018-05-14 Patient Summary Documents Normal 04-18 [facility] ([place]) (26846) [facility] Pat Edu Normal 05-14-2018 [facility] ([place]) (75914) [facility] note on 2018-05-14 [facility] Note Normal 0 05-14-2018 [facility] ([place]) (30482) lip on 2018-05-14 Lipase Level 250 73-393 U/L Normal 05-14-2018 [facility]) (94616) Comment: Performed By: #### CBC, ADIF F, ANEU ####[place] [address]#### L IP, CMP, GFR ####[place] [address] cmp on 2018-05-14 Alanine aminotransferase (ALT) 41 10-35 U/L High 05-14-2018 [facility] ([place]) (0000 0) Comment: Performed By: #### CBC, ADIF F, ANEU ####[place] [id number]#### L IP, CMP, GFR ####[place] [address] Albumin 3.4 3.5-5.0 G/dL Low 05-14-2018 [facility] ([place]) (27696) Comment: Performed By: #### CBC, ADIF F, ANEU ####[place] [address]#### L IP, CMP, GFR ####[place] [address] Albumin/Globulin Ratio 1.2 1.1-2.5 ratio Normal 018 [facility] ([place]) (0000 0) Comment: Performed By: #### CBC, ADIF F, ANEU ####[place] [id number]#### L IP, CMP, GFR ####[place] [address] Alk Phos 56 40-135 U/L Normal 05-14-2018 [facility] ([place]) (08673) Comment: Performed By: #### CBC, ADIF F, ANEU ####[place] [address]#### L IP, CMP, GFR ####[place] [address] Aspartate aminotransferase 42 10-40 U/L High [facility] ([facility]) ([place]) (0000 0) Comment: Performed By: #### CBC, ADIF F, ANEU ####[place] [address]#### L IP, CMP, GFR ####[place] [address] Bili Total 0.5 0.2-1.0 mg/dL Normal 05-14-2018 [facility] ([place]) (40860) Comment: Performed By: #### CBC, ADIF F, ANEU ####[place] [address]#### L IP, CMP, GFR ####[place] [address] BUN/Creatinine Ratio 14 7-27 ratio Normal 8 [facility] ([place]) (28112) Comment: Performed By: #### CBC, ADIF F, ANEU ####[place] [address]#### L IP, CMP, GFR ####[place] [address] Calcium 8.0 8.4-10.2 mg/dL Low 05-14-2018 [facility] ([place]) (74049) Comment: Performed By: #### CBC, ADIF F, ANEU ####[place] [address]#### L IP, CMP, GFR ####[place] [id number] [place] [address] Chloride 104 98-107 mmol/L Normal 05-14-2018 [facility] ([place]) (55353) Comment: Performed By: #### CBC, ADIF F, ANEU ####[address] [place], [place] [address]#### L IP, CMP, GFR ####[place] [address] CO2 23 22-29 mmol/L Normal 05-14-2018 [facility] ([place]) (77725) Comment: Performed By: #### CBC, ADIF F, ANEU ####[address] [place] [address]#### L IP, CMP, GFR ####[place] [address] Creatinine 1.28 0.55-1.02 mg/dL High 05-14-2018 [facility] ([place]) (34064) Comment: Performed By: #### CBC, ADIF F, ANEU ####[address] [place] [place] [address]#### L IP, CMP, GFR ####[place] [address] Electrolyte Balance 9.0 mEq/L Normal 05-14-2018 [facility] ([place]) (12882) Comment: Performed By: #### CBC, ADIF F, ANEU ####[address] [place] [place] [id number]#### L IP, CMP, GFR ####[place] [address] Globulin 2.9 G/dL Normal 05-14-2018 [facility] ([place]) (15832) Comment: Performed By: #### CBC, ADIF F, ANEU ####[address] [place] [phone]#### L IP, CMP, GFR ####[place] [address] Glucose mass conc 90 70-105 mg/dL Normal 05-14-2018 [facility] ([place]) (56665) Comment: Performed By: #### CBC, ADIF F, ANEU ####[address] [place], [place] [address]#### L IP, CMP, GFR ####[address] [address] Potassium molar conc 4.6 3.5-5.1 mmol/L Normal 8 [facility] ([place]) (0000 0) Comment: Performed By: #### CBC, ADIF F, ANEU ####[address] [id number]#### L IP, CMP, GFR ####[place] [address] Protein 6.3 6.4-8.2 G/dL Low 05-14-2018 [facility] ([place]) (52039) Comment: Performed By: #### CBC, ADIF F, ANEU ####[address] [place] [id number]#### L IP, CMP, GFR ####[place] [address] Sodium 136 136-145 mmol/L Normal 05-14-2018 [facility] ([place]) (27172) Comment: Performed By: #### CBC, ADIF F, ANEU ####[place] [id number]#### L IP, CMP, GFR ####[address] [address] Urea nitrogen 18 7-18 mg/dL Normal 05-14-2018 [facility] ([place]) (71389) Comment: Performed By: #### CBC, ADIF F, ANEU ####[address] [place] [phone]#### L IP, CMP, GFR ####[address] [address] .gfr on 2018-05-14 GFR Non- 45 ml/min/1.73sqm Normal 05-14-2018 [facility] ([place]) (04853) Comment: Result Comment: GFR Populati on mean [...] #### CBC, ADIF F, ANEU ####[address] [place], [place] [address]#### L IP, CMP, GFR ####[place] [id number] [place] [address] GFR 55 ml/min/1.73sqm Normal - [facility] ([place]) (0000 0) Comment: Result Comment: GFR Populati [...] #### CBC, ADIF F, ANEU ####[address] [place], [place] [address]#### L IP, CMP, GFR ####[place] [id number] [place] [address] ua on 2018-05-13 UA Appear Slightly Cloudy Clear Invalid Interpretation 0 05-13-2018 [facility] ([place]) (10720) Comment: Performed By: #### UA, PREGU , UAMICAO ####[address] [place], [place] [address] UA Blood Negative Negative Normal 05-13-2018 [facility] ([place]) (05277) Comment: Performed By: #### UA, PREGU , UAMICAO ####[address] [place], [place] [address] UA Leuk Est Small Negative Invalid Interpretation 05-13 [facility] ([place]) (30906) Comment: Performed By: #### UA, PREGU , UAMICAO ####[address] [place], [place] [address] UA Nitrite Negative Negative Normal 05-13-2018 [facility] ([place]) (14579) Comment: Performed By: #### UA, PREGU , UAMICAO ####[address] [place], [place] [address] UA pH 7.5 Normal 05-13-2018 [facility] ([place]) (20986) Comment: Performed By: #### UA, PREGU , UAMICAO ####[address] [place], [place] [address] UA Protein Negative Negative Normal 05-13-2018 [facility] ([place]) (12517) Comment: Performed By: #### UA, PREGU , UAMICAO ####[address] [place], [place] [address] UA Spec Grav 1.005 Invalid Interpretation Code 05-13-2018 [facility] ([place]) (63207) Comment: Performed By: #### UA, PREGU , UAMICAO ####[address] [place], [place] [address] UA Specimen Type Clean Catch Normal 05-13-2018 [facility] ([place]) (76141) Comment: Performed By: #### UA, PREGU , UAMICAO ####[address] [place], [place] [address] UA Urobilinogen 0.2 E.U./dL Normal 05-13-2018 [facility] ([place]) (39797) Comment: Performed By: #### UA, PREGU , UAMICAO ####[address] [place], [place] [address] Urine, color Yellow Normal 05-13-2018 [facility] ([place]) (98149) Comment: Performed By: #### UA, PREGU , UAMICAO ####[address] [place], [place] [address] Urine, glucose Negative Negative mg/dL Normal 05-13-2018 [facility] ([place]) (0000 0) Comment: Performed By: #### UA, PREGU , UAMICAO ####[address] [place], [place] [address] Urine, ketones presence Negative Negative Normal 2017 [facility] ([place]) (47830) Comment: Performed By: #### UA, PREGU , UAMICAO ####[address] [place], [place] [address] Urine, Negative Negative {Ayla'U}/dL Normal 05-13-2018 [facility] urobilinogen Foundat ion ([place]) (40750) Comment: Performed By: #### UA, PREGU , UAMICAO ####[address] [place], [place] [address] pregu on 2018-05-13 HCG ( test) Ql (U) Negative Normal [facility] ([place]) (0000 0) Comment: Performed By: #### UA, PREGU , UAMICAO ####[address] [place], [place] [address] test HCG not Invalid 05-13-2018 [facility] (u) int detected. Interpretation Code [facility] ([place]) (26629) Comment: Performed By: #### UA, PREGU , UAMICAO ####[address] [place], [place] [address] cbc on 2018-05-13 Erythrocyte distribution 13.9 11.5-14.5 % Normal 05-13 [facility] width Auto Ratio (RBC) [facility] ([place]) (97126) Comment: Performed By: #### CBC, ADIF F, ANEU ####[address] [place] [address]#### L IP, CMP, GFR ####[place] [address] Erythrocytes (RBC) 5.57 4.20-5.40 10 6/mcL High 05-13-2018 [facility] ([place]) (0000 0) Comment: Performed By: #### CBC, ADIF F, ANEU ####[place] [address]#### L IP, CMP, GFR ####[place] [address] Hematocrit (HCT) 49.2 37.0-47.0 % High 05-13-2018 [facility] ([place]) (21188) Comment: Performed By: #### CBC, ADIF F, ANEU ####[place] [address]#### L IP, CMP, GFR ####[place] [address] Hemoglobin mass conc 17.1 12.0-16.0 G/dL High 8 [facility] ([facility] ([place]) (19005) Comment: Performed By: #### CBC, ADIF F, ANEU ####[place] [address]#### L IP, CMP, GFR ####[place] [address] MCH 30.6 27.0-31.2 pg Normal 05-13-2018 [facility] ([place]) (24344) Comment: Performed By: #### CBC, ADIF F, ANEU ####[place] [address]#### L IP, CMP, GFR ####[place] [address] MCHC mass conc (RBC) 34.7 33.0-37.0 G/dL Normal 8 [facility] ([place]) (0000 0) Comment: Performed By: #### CBC, ADIF F, ANEU ####[place] [address] [id number]#### L IP, CMP, GFR ####[place] [address] MCV 88.3 80.0-94.0 fL Normal 05-13-2018 [facility] ([place]) (41983) Comment: Performed By: #### CBC, ADIF F, ANEU ####[address] [place] [address]#### L IP, CMP, GFR ####[place] [address] Platelet mean volume 8.0 7.4-10.4 fL Normal 8 [facility] ([facility]) ([place]) (0000 0) Comment: Performed By: #### CBC, ADIF F, ANEU ####[place] [address]#### L IP, CMP, GFR ####[place] [address] Platelets 113 130-400 10 3/mcL Low 05-13-2018 [facility] ([place]) (05247) Comment: Performed By: #### CBC, ADIF F, ANEU ####[address] [place] [id number]#### L IP, CMP, GFR ####[place] [address] WBC (Leukocytes) 9.10 4.60-10.80 10 3/mcL Normal 05-13-2018 [facility] ([place]) (0000 0) Comment: Performed By: #### CBC, ADIF F, ANEU ####[place] [address]#### L IP, CMP, GFR ####[place] [address] .urinalysis microscopic (ao) on 2018-05-13 UA Bacteria 1+ /hpf Invalid Interpretation Code 05-13-2018 [facility] ([place]) (39566) Comment: Performed By: #### UA, PREGU , UAMICAO ####[address] [place], [place] [address] UA Squam LOADED None Seen Invalid 05-13-2018 [facility] Epithelial Interpretation [facility] (66624) Comment: Performed By: #### UA, PREGU , UAMICAO ####[address] [place], [place] [address] UA WBC LOADED None Seen Invalid Interpretation 018 [facility]) (19702) Comment: Performed By: #### UA, PREGU , UAMICAO ####[address] [place], [place] [address] Urine, erythrocytes None Seen None Seen Normal 05-13-2018 [facility]) (0000 0) Comment: Performed By: #### UA, PREGU , UAMICAO ####[place] [address] [place], [place] [address] .neuabs on Neutrophil, Absolute 6.70 2.85-6.16 10 3/mcL High 8 [facility] ([place]) (84941) Comment: Performed By: #### CBC, ADIF F, ANEU ####[place] [id number]#### L IP, CMP, GFR ####[address] [address] .auto diff on 05-13 Basophils Auto #/vol 0.00 0.00-0.19 10 3/[facility] Normal 8 [facility] (Bld) [facility]) (42602) Comment: Performed By: #### CBC, ADIF F, ANEU ####[place] [id number]#### L IP, CMP, GFR ####[address] [address] Basophils/100 WBC Auto (d) 0.5 0.0-2.5 % Normal 0 05-13-2018 [facility]) (0000 0) Comment: Performed By: #### CBC, ADIF F, ANEU ####[place] [address]#### L IP, CMP, GFR ####[address] [address] Eosinophils 0.10 0.00-0.40 10 3/mcL Normal 05-13-2018 [facility] ([place]) (94126) Comment: Performed By: #### CBC, ADIF F, ANEU ####[place] [address]#### L IP, CMP, GFR ####[place] [address] Eosinophils/100 leukocytes 0.8 0.0-7.0 % Normal [facility] ([place]) (0000 0) Comment: Performed By: #### CBC, ADIF F, ANEU ####[place] [address]#### L IP, CMP, GFR ####[place] [address] Lymphocytes 1.60 0.77-3.85 10 3/[facility] Normal 05-13-2018 [facility] ([place]) (81468) Comment: Performed By: #### CBC, ADIF F, ANEU ####[address] [place] [address]#### L IP, CMP, GFR ####[place] [address] Lymphocytes/100 leukocytes 18.0 10.0-50.0 % Normal [facility] ([place]) (07877) Comment: Performed By: #### CBC, ADIF F, ANEU ####[place] [address]#### L IP, CMP, GFR ####[place] [address] Monocytes 0.60 0.15-1.00 10 3/[facility] Normal 05-13-2018 [facility] ([place]) (69164) Comment: Performed By: #### CBC, ADIF F, ANEU ####[address] [place], [place] [address]#### L IP, CMP, GFR ####[address] [address] Monocytes/100 leukocytes 6.8 1.7-13.0 % Normal 05-13 [facility] ([place]) (0000 0) Comment: Performed By: #### CBC, ADIF F, ANEU ####[address] [address]#### L IP, CMP, GFR ####[address] [address] Neutrophils/100 WBC Auto 73.9 37.0-80.0 % Normal 05-13 [facility] (d) [facility] ([place]) (88757) Comment: Performed By: #### CBC, ADIF F, ANEU ####[address] [address]#### L IP, CMP, GFR ####[address] [address] urinalysis, routine on 2018-03-15 Bacteria LM.HPF #/area Few NS;RARE Abnormal [address] [place] [address] and (Urine sed) Irene Derek mora (33719) Comment: Performed By: #### GLUX #### Unless otherwise noted, all testing performed by [facility] l [address] [place] [address] CLIA: [id number] Cra: Ismael vines M.D. Bilirubin,Urine Negative NEG;NEGATIVE Normal 03-15-2018 [facility] Irene Kermit pitals (25064) Comment: Performed By: #### GLUX #### Unless otherwise noted, all testing performed by [facility] l [address] [place] [address] CLIA: [id number] Cra: Ismael vines M.D. Blood,Urine Small NEG;NEGATIVE Abnormal 03-15-2018 [facility] [place] [facility] (45511) Comment: Performed By: #### GLUX #### Unless otherwise noted, all testing performed by [place] [address] CLIA: [id number] Cra: Ismael vines M.D. Character Nom (U) Cloudy Normal 03-15-2018 [facility] (43781) Comment: Performed By: #### GLUX #### Unless otherwise noted, all testing performed by [place] [address] CLIA: [id number] Cra: Ismael vines M.D. Color Nom (U) Yellow Normal 03-15-2018 [facility] (51647) Comment: Performed By: #### GLUX #### Unless otherwise noted, all testing performed by [place] [address] CLIA: [id number] Cra: Ismael vines M.D. Glucose Ql (U) Negative NEG;NEGATIVE Normal 03-15-2018 [facility] (15545) Comment: Performed By: #### GLUX #### Unless otherwise noted, all testing performed by [place] [address] CLIA: [id number] Cra: Ismael vines M.D. Ketone,Urine Negative NEG;NEGATIVE Normal 03-15-2018 [facility] (83781) Comment: Performed By: #### GLUX #### Unless otherwise noted, all testing performed by [facility] [address] [place] [address] CLIA: [id number] Cra: Ismael vines M.D. Leuk.Esterase,Urine Large Negative Abnormal 03-15-2018 [facility] (89259) Comment: Performed By: #### GLUX #### Unless otherwise noted, all testing performed by [place] [address] CLIA: [id number] Cra: Ismael vines M.D. Nitrite,Urine Negative NEG;NEGATIVE Normal 03-15-2018 [facility] (08565) Comment: Performed By: #### GLUX #### Unless otherwise noted, all testing performed by [place] [address] CLIA: [id number] Cra: Ismael vines M.D. pH (U) 5.0 4.5-8.0 [pH] Normal 03-15-2018 [facility] (98488) Comment: Performed By: #### GLUX #### Unless otherwise noted, all testing performed by [place] [address] CLIA: [id number] Cra: Ismael vines M.D. Protein mass conc Negative NEG;NEGATIVE mg/dL Normal [address] [place] [address] ([facility] (07502) Comment: Performed By: #### GLUX #### Unless otherwise noted, all testing performed by [facility] [address] [place] [address] CLIA: [id number] Cra: Ismael vines M.D. RBC,Urine 8 0-5 /HPF High 03-15-2018 [facility] (00713) Comment: Performed By: #### GLUX #### Unless otherwise noted, all testing performed by [place] [phone] CLIA: [id number] Cra: Ismael vines M.D. Specific [place],Urine 1.015 1.003-1.029 Normal 03-15 [facility] (37765) Comment: Performed By: #### GLUX #### Unless otherwise noted, all testing performed by [place] [phone] CLIA: [id number] Cra: Ismael vines M.D. Squamous Epithelial 11 0-40 /HPF Normal 03-15-2018 [facility] (33933) Comment: Performed By: #### GLUX #### Unless otherwise noted, all testing performed by [place] [phone] CLIA: [id number] Cra: Ismael vines M.D. Urobilinogen,Urine < 2.0 <2 Normal 03-15-2018 [facility] (46971) Comment: Performed By: #### GLUX #### Unless otherwise noted, all testing performed by [place] [phone] CLIA: [id number] Cra: Ismael vines M.D. WBC,Urine 46 0-5 /HPF High 03-15-2018 [facility] (83761) Comment: Performed By: #### GLUX #### Unless otherwise noted, all testing performed by [place] [phone] CLIA: [id number] Cra: Ismael vines M.D. test,urine qual on 2018-03-15 HCG.beta subunit Negative Negative Normal 03-15-2018 [facility] ( test) ([facility] (32484) Comment: Result Comment: Rapid test p rocedural [...] Unless otherwise noted, all testing performed by [facility] l [address] [facility]. [place] [address] CLIA: [id number] Cra: Ismael vines M.D. lipase on 2018-02-16 9 Lipase enzyme act/vol 288 73-393 U/L Normal 03-15-20 18 [facility] (22595) Comment: Performed By: #### GLUX #### Unless otherwise noted, all testing performed by [facility] l [address] [facility]. [place] [address] CLIA: [id number] Cra: Ismael vines M.D. ed cardiac troponin-i on 2018-03-15 Troponin I.cardiac mass < 15 < 45 ng/mL Normal 2017 [facility] (81915) Comment: Result Comment: Elevation of troponin indicates [...] Unless otherwise noted, all testing performed by [facility] l [address] [place] [address] CLIA: [id number] Cra: Ismael vines M.D. comprehensive metabolic panel on 2018-03-15 Albumin mass conc 3.8 3.2-5.2 g/dL Normal 03-15-2018 [facility] (96764) Comment: Performed By: #### GLUX #### Unless otherwise noted, all testing performed by [facility] l [address] [place] [address] CLIA: [id number] Cra: Ismael vines M.D. ALP enzyme act/vol 66 40-150 U/L Normal 03-15-2018 [facility] ([id number]) Comment: Performed By: #### GLUX #### Unless otherwise noted, all testing performed by [facility] [address] [address] CLIA: [id number] Cra: Ismael vines M.D. ALT enzyme act/vol 56 14-65 U/L Normal 03-15-2018 [facility] ([id number]) Comment: Result Comment: This test re sult might be falsely depressed or falsely elevated on samples drawn from patients taking Sulfasalazine and Sulfapyridine. Venipuncture should occur pr ior to taking either of these drugs. Performed By: #### GLUX #### Unless otherwise noted, all testing performed by [facility] [address] [address] CLIA: [id number] Cra: Ismael vines M.D. AST enzyme act/vol 51 0-45 U/L High 03-15-2018 [facility] (43078) Comment: Result Comment: This test re sult might be falsely depressed or falsely elevated on samples drawn from patients taking Sulfasalazine and Sulfapyridine. Venipuncture should occur pr ior to taking either of these drugs. Performed By: #### GLUX #### Unless otherwise noted, all testing performed by [place] [phone] CLIA: [id number] Cra: Ismael vines M.D. Bilirubin mass conc 0.5 0.3-1.2 mg/dL Normal 03-15-2018 [facility] (22190) Comment: Performed By: #### GLUX #### Unless otherwise noted, all testing performed by [place] [phone] CLIA: [id number] Cra: Ismael vines M.D. Calcium mass conc 9.7 8.4-10.2 mg/dL Normal 03-15-2018 [facility] (75983) Comment: Performed By: #### GLUX #### Unless otherwise noted, all testing performed by [place] [phone] CLIA: [id number] Cra: Ismael vines M.D. Chloride molar conc 105 98-108 mmol/L Normal 03-15-2018 [facility] (12519) Comment: Performed By: #### GLUX #### Unless otherwise noted, all testing performed by [place] [phone] CLIA: [id number] Cra: Ismael vines M.D. CO2 molar conc 26 21-32 mmol/L Normal 03-15-2018 [facility] ([id number]) Comment: Performed By: #### GLUX #### Unless otherwise noted, all testing performed by [place] [address] CLIA: [id number] Cra: Ismael viens M.D. Creatinine mass conc 1.67 0.40-1.10 mg/dL High 8 [facility] (15352) Comment: Performed By: #### GLUX #### Unless otherwise noted, [facility] [address] [place] [address] CLIA: [id number] Cra: Ismael vines M.D. GFR/1.73 sq M predicted 40 >60 ml/min/1.73sq.m Low 03-15-2018 [facility] among blacks [facility] (85009) rate/area (S/P/Bld) Comment: Result Comment: Amer ican GFR Calc Performed By: #### GLUX #### Unless otherwise noted, all testing performed by [facility] [address] [place] [address] CLIA: [id number] Cra: Ismael vines M.D. GFR/1.73 sq M predicted 33 >60 ml/min/1.73sq.m Low 03-15-2018 [facility] among non-blacks [facility] vol rate/area (S/P/Bld) (68427) Comment: Result Comment: Non- GFR Calc eGFR [...] Unless otherwise noted, all testing performed by [facility] [address] [place] [address] CLIA: [id number] Cra: Ismael vines M.D. Glucose mass conc 88 70-99 mg/dL Normal 03-15-2018 [facility] (81350) Comment: Result Comment: This test re sult might be falsely depressed or falsely elevated on samples drawn from patients taking Sulfasalazine and Sulfapyridine. Venipuncture should occur pr ior to taking either of these drugs. Performed By: #### GLUX #### Unless otherwise noted, all testing performed by [facility] [address] [address] CLIA: [id number] Cra: Ismael vines M.D. Potassium molar conc 4.4 3.5-5.1 mmol/L Normal 8 [facility] (97575) Comment: Performed By: #### GLUX #### Unless otherwise noted, all testing performed by [facility] [address] [address] CLIA: [id number] Cra: Ismael vines M.D. Protein mass conc 7.3 6.0-8.0 g/dL Normal 03-15-2018 [facility] (44967) Comment: Performed By: #### GLUX #### Unless otherwise noted, all testing performed by [facility] [address] [address] CLIA: [id number] Cra: Ismael vines M.D. Sodium molar conc 137 135-145 mmol/L Normal 03-15-2018 [facility] (41459) Comment: Performed By: #### GLUX #### Unless otherwise noted, all testing performed by [facility] [address] [address] CLIA: [id number] Cra: Ismael vines M.D. Urea nitrogen mass conc 30 8-25 mg/dL High 2017 [facility] (87047) Comment: Performed By: #### GLUX #### Unless otherwise noted, all testing performed by [facility] [address] [address] CLIA: [id number] Cra: Ismael vines M.D. cbc with diff on 04-03-29 Basophils #/vol (Bld) 0.1 0-0.2 K/mcL Normal 03-15-20 18 [facility] (74241) Comment: Performed By: #### CBCDIF, E DCTNI, CMET, LIPASE #### Unless otherwise noted, all testing performed by [place] [address] CLIA: [id number] Cra: Ismael vines M.D. Basophils/100 WBC (Bld) 1.1 % Normal 2017 [facility] (71974) Comment: Performed By: #### CBCDIF, E DCTNI, CMET, LIPASE #### Unless otherwise noted, all testing performed by [place] [address] CLIA: [id number] Cra: Ismael vines M.D. Eosinophils #/vol (Bld) 0.2 0-0.5 K/mcL Normal 2017 [facility] (30523) Comment: Performed By: #### CBCDIF, E DCTNI, CMET, LIPASE #### Unless otherwise noted, all testing performed by [facility] [address] [address] CLIA: [id number] Cra: Ismael vines M.D. Eosinophils/100 WBC (Bld) 3.2 % Normal - [facility] (35671) Comment: Performed By: #### CBCDIF, E DCTNI, CMET, LIPASE #### Unless otherwise noted, all testing performed by [facility] [address] [address] CLIA: [id number] Cra: Ismael vines M.D. Erythrocyte distribution 13.4 10.0-14.4 % Normal 03-15 [facility] width [facility] (RBC) [facility] (79667) Comment: Performed By: #### CBCDIF, E DCTNI, CMET, LIPASE #### Unless otherwise noted, all testing performed by [facility] [address] [address] CLIA: [id number] Cra: Ismael vines M.D. Hematocrit Volume Fraction 47.8 34.4-44.8 % High [facility] ([facility]) [facility] (96789) Comment: Performed By: #### CBCDIF, E DCTNI, CMET, LIPASE #### Unless otherwise noted, all testing performed by [facility] [address] [address] CLIA: [id number] Cra: Ismael vines M.D. Hemoglobin mass conc 15.7 11.6-15.4 g/dL High 8 [facility] ([facility]) [facility] (13495) Comment: Performed By: #### CBCDIF, E DCTNI, CMET, LIPASE #### Unless otherwise noted, all testing performed by [facility] [address] [address] CLIA: [id number] Cra: Ismael vines M.D. Lymphocytes #/vol (Bld) 1.4 1.0-3.7 K/mcL Normal 2017 [facility] (66665) Comment: Performed By: #### CBCDIF, E DCTNI, CMET, LIPASE #### Unless otherwise noted, all testing performed by [facility] [address] [address] CLIA: [id number] Cra: Ismael vines M.D. Lymphocytes/100 WBC (Bld) 24.7 % Normal 02-16 [facility] (70301) Comment: Performed By: #### CBCDIF, E DCTNI, CMET, LIPASE #### Unless otherwise noted, all testing performed by [place] [address] CLIA: [id number] Cra: Ismael vines M.D. MCH Entitic mass (RBC) 29.6 27.9-33.9 pg Normal 018 [facility] (72068) Comment: Performed By: #### CBCDIF, E DCTNI, CMET, LIPASE #### Unless otherwise noted, all testing performed by [place] [address] CLIA: [id number] Cra: Ismael vines M.D. MCHC mass conc (RBC) 32.8 33.1-35.1 g/dL Low 8 [facility] (95467) Comment: Performed By: #### CBCDIF, E DCTNI, CMET, LIPASE #### Unless otherwise noted, all testing performed by [facility] [address] [address] CLIA: [id number] Cra: Ismael vines M.D. MCV Entitic volume 90.5 82.6-98.9 FL Normal 03-15-2018 [facility] (RBC) [facility] (37685) Comment: Performed By: #### CBCDIF, E DCTNI, CMET, LIPASE #### Unless otherwise noted, all testing performed by [place] [address] CLIA: [id number] Cra: Ismael vines M.D. Metamyelocytes/100 WBC (Bld) 2.2 0 % High 0 03-15-2018 [facility] (74226) Comment: Performed By: #### CBCDIF, E DCTNI, CMET, LIPASE #### Unless otherwise noted, all testing performed by [place] [address] CLIA: [id number] Cra: Ismael vines M.D. Monocytes #/vol (Bld) 0.2 0.1-0.6 K/mcL Normal 03-15-20 18 [facility] (03114) Comment: Performed By: #### CBCDIF, E DCTNI, CMET, LIPASE #### Unless otherwise noted, all testing performed by [place] [address] CLIA: [id number] Cra: Ismael vines M.D. Monocytes/100 WBC (Bld) 3.2 % Normal 2017 [facility] (22130) Comment: Performed By: #### CBCDIF, E DCTNI, CMET, LIPASE #### Unless otherwise noted, all testing performed by [place] [address] CLIA: [id number] Cra: Ismael vines M.D. Neutrophils #/vol (Bld) 3.9 1.2-6.9 K/mcL Normal 2017 [facility] (33263) Comment: Performed By: #### CBCDIF, E DCTNI, CMET, LIPASE #### Unless otherwise noted, all testing performed by [facility] [address] [address] CLIA: [id number] Cra: Ismael vines M.D. Nucleated RBC #/vol (Bld) 1 0 /100 WBC High 02-16 [facility] (34510) Comment: Performed By: #### CBCDIF, E DCTNI, CMET, LIPASE #### Unless otherwise noted, all testing performed by [place] [address] CLIA: [id number] Cra: Ismael vines M.D. Platelet mean volume 8.8 7.0-10.6 FL Normal 8 [facility] (25528) Comment: Performed By: #### CBCDIF, E DCTNI, CMET, LIPASE #### Unless otherwise noted, all testing performed by [place] [address] CLIA: [id number] Cra: Ismael vines M.D. Platelets #/vol (Bld) 133 162-402 K/mcL Low 03-15-20 18 [facility] (34452) Comment: Performed By: #### CBCDIF, E DCTNI, CMET, LIPASE #### Unless otherwise noted, all testing performed by [facility] [address] [address] CLIA: [id number] Cra: Ismael vines M.D. RBC #/vol (Bld) 5.29 3.7-5.0 M/mcL High 03-15-2018 [facility] (76511) Comment: Performed By: #### CBCDIF, E DCTNI, CMET, LIPASE #### Unless otherwise noted, all testing performed by [place] [address] CLIA: [id number] Cra: Ismael vines M.D. Segmented Neut % 65.6 % Normal 03-15-2018 [facility] (60620) Comment: Result Comment: Smear review ed to verify automated differential> Performed By: #### CBCDIF, E DCTNI, CMET, LIPASE #### Unless otherwise noted, all testing performed by [place] [address] CLIA: [id number] Cra: Ismael vines M.D. WBC #/vol (Bld) 5.8 3.4-10.6 K/mcL Normal 03-15-2018 [facility] (43307) Comment: Performed By: #### CBCDIF, E DCTNI, CMET, LIPASE #### Unless otherwise noted, all testing performed by [place] [address] CLIA: [id number] Cra: Ismael vines M.D. us abdomen limited study on 2018-01-18 Invalid Interpretation Code ONBASE valproic acid on 02-01-18 Protein mass conc 72 50-100 mcg/mL Normal 01-02-2018 [facility] (65174) Comment: Result Comment: Result shoul d be correlated with last dose as reflected in the medical record. Performed By: #### CHEM8, [facility] #### Unless otherwise noted, all testing performed by [facility] [address] [facility] [place] [address] CLIA: [id number] Cra: Ismael vines M.D. urinalysis, routine on 2018-01-02 Bilirubin,Urine Negative NEG;NEGATIVE Normal 01-02-2018 [facility] (61795) Comment: Performed By: #### UA #### Unless otherwise noted, all testing performed by [place] [address] CLIA: [id number] Cra: Ismael vines M.D. Blood,Urine Negative NEG;NEGATIVE Normal 01-02-2018 [facility] (46815) Comment: Performed By: #### UA #### Unless otherwise noted, all testing performed by [place] [address] CLIA: [id number] Cra: Ismael vines M.D. Character Nom (U) Clear Normal 01-02-2018 [facility] (42349) Comment: Performed By: #### UA #### Unless otherwise noted, all testing performed by [place] [address] CLIA: [id number] Cra: Ismael vines M.D. Color Nom (U) Straw Normal 01-02-2018 [facility] (62835) Comment: Performed By: #### UA #### Unless otherwise noted, all testing performed by [facility] [address] [address] CLIA: [id number] Cra: Ismael vines M.D. Glucose Ql (U) Negative NEG;NEGATIVE Normal 01-02-2018 [facility] (89539) Comment: Performed By: #### UA #### Unless otherwise noted, all testing performed by [place] [address] CLIA: [id number] Cra: Ismael vines M.D. Ketone,Urine Negative NEG;NEGATIVE Normal 01-02-2018 [facility] (41382) Comment: Performed By: #### UA #### Unless otherwise noted, all testing performed by [place] [address] CLIA: [id number] Cra: Ismael vines M.D. Leuk.Esterase,Urine Negative Negative Normal 01-02-2018 [facility] (20229) Comment: Performed By: #### UA #### Unless otherwise noted, all testing performed by [place] [phone] CLIA: [id number] Cra: Ismael vines M.D. Nitrite,Urine Negative NEG;NEGATIVE Normal 01-02-2018 [facility] (82369) Comment: Performed By: #### UA #### Unless otherwise noted, all testing performed by [place] [address] CLIA: [id number] Cra: Ismael vines M.D. pH (U) 6.0 4.5-8.0 [pH] Normal 01-02-2018 [facility] (54606) Comment: Performed By: #### UA #### Unless otherwise noted, all testing performed by [facility] [place] [address] CLIA: [id number] Cra: Ismael vines M.D. Protein mass conc Negative NEG;NEGATIVE mg/dL Normal 8 [facility] (U) [facility] (94468) Comment: Performed By: #### UA #### Unless otherwise noted, all testing performed by [place] [phone] CLIA: [id number] Cra: Ismael vines M.D. RBC LM.HPF #/area (Urine < 1 0-5 /[HPF] Normal 01-02 [facility] (87929) Comment: Performed By: #### UA #### Unless otherwise noted, all testing performed by [place] [phone] CLIA: [id number] Cra: Ismael vines M.D. Specific [place],Urine 1.006 1.003-1.029 Normal 01-02 [facility] (52937) Comment: Performed By: #### UA #### Unless otherwise noted, all testing performed by [place] [address] CLIA: [id number] Cra: Ismael vines M.D. Squamous Epithelial 1 0-40 /HPF Normal 01-02-2018 [facility] (75244) Comment: Performed By: #### UA #### Unless otherwise noted, all testing performed by [place] [address] CLIA: [id number] Cra: Ismael vines M.D. Urobilinogen,Urine < 2.0 <2 Normal 01-02-2018 [facility] (07022) Comment: Performed By: #### UA #### Unless otherwise noted, all testing performed by [facility] [address] [facility] [place] [address] CLIA: [id number] Cra: Ismael vines M.D. WBC,Urine 1 0-5 /HPF Normal 01-02-2018 [facility] (03639) Comment: Performed By: #### UA #### Unless otherwise noted, all testing performed by [facility] [address] [facility] [place] [address] CLIA: [id number] Cra: Ismael vines M.D. topiramate on 01-02 Topiramate 1.6 mcg/mL Normal 01-02-2018 [facility] (82803) Comment: Result Comment: -------REFERENCE VALUE Reference values depend on c linical use: Anticonvulsant: 5.0-20.0 mcg /mL Psychiatric: 2.0-8.0 mcg/mL ADDITIONA L INFORMATION This test was developed and its performance characteristics determined by [facility] in a manner consistent with CLIA requirements. This test has not been cleared or approved by the U.S. Food and Drug Admin istration. Test Performed by: [facility] [address] [id number] Performed By: #### REGGIE SANTOS #### Unless otherwise noted, all testing performed by [facility] [address] [facility] [place] [address] CLIA: [id number] Cra: Ismael vines M.D. levetiracetam on 02-01-18 Levetiracetam mass conc 45.1 12.0 - 46.0 mcg/mL Normal 12-16 [facility] (38455) Comment: Result Comment: -------ADDITIONAL INFORMATION This test was developed and its performance characteristics determined by [facility] in a manner consistent with CLIA requirements. This test has not been cleared or approved by the U.S. Food and Drug Admin istration. Test Performed by: [facility] - [facility] [address] [place] [address] Performed By: #### REGGIE SANTOS #### Unless otherwise noted, all testing performed [facility] [address] [facility]. [place] [address] CLIA: [id number] Cra: Ismael vines M.D. glucose, poc on 05-20-18 Glucose mass conc 103 70-105 mg/dL Normal 01-02-2018 [facility] (57002) Comment: Performed By: #### GLUX #### Unless otherwise noted, all testing performed by [facility] [address] [facility]. [place] [address] CLIA: [id number] Cra: Ismael vines M.D. chest (one view only) on 2018-01-02 CHEST (ONE VIEW Final Report Normal [facility] ONLY) Accession No: [id number] Performed: Jan 02 2018 1:47P [facility] Examination: CHEST (ONE VIEW ONLY) ([id number]) TECHNIQUE single view of the chest AP [...] #/vol (Bld) 0.0 0-0.2 K/mcL Normal 01-03-20 [facility] (88709) Comment: Performed By: #### CBCDIF ## ## Unless otherwise noted, all testing performed by [place] [address] CLIA: [id number] Cra: Ismael vines M.D. Basophils/100 WBC (Bld) 0.4 % Normal 2017 [facility] (64566) Comment: Performed By: #### CBCDIF ## ## Unless otherwise noted, all testing performed by [place] [address] CLIA: [id number] Cra: Ismael vines M.D. Eosinophils #/vol (Bld) 0.1 0-0.5 K/mcL Normal 2017 [facility] (38072) Comment: Performed By: #### CBCDIF ## ## Unless otherwise noted, all testing performed by [place] [address] CLIA: [id number] Cra: Ismael vines M.D. Eosinophils/100 WBC (Bld) 1.6 % Normal 12-16 [facility] (71562) Comment: Performed By: #### CBCDIF ## ## Unless otherwise noted, all testing performed by [facility] [address] [place] [address] CLIA: [id number] Cra: Ismael vines M.D. Erythrocyte distribution 13.6 10.0-14.4 % Normal 01-02 [facility] (RBC) [facility] (43984) Comment: Performed By: #### CBCDIF ## ## Unless otherwise noted, all testing performed by [facility] [address] [place] [address] CLIA: [id number] Cra: Ismael vines M.D. Hematocrit Volume 41.9 34.4-44.8 % Normal 01-02-2018 [facility] (07083) Comment: Performed By: #### CBCDIF ## ## Unless otherwise noted, all testing performed by [facility] [address] [place] [address] CLIA: [id number] Cra: Ismael vines M.D. Hemoglobin mass conc 14.0 11.6-15.4 g/dL Normal 8 [facility] ([facility]) [facility] (13429) Comment: Performed By: #### CBCDIF ## ## Unless otherwise noted, all testing performed by [facility] [address] [place] [address] CLIA: [id number] Cra: Ismael vines M.D. Lymphocytes #/vol ([facility]) 2.1 1.0-3.7 K/mcL Normal 2017 [facility] (32104) Comment: Performed By: #### CBCDIF ## ## Unless otherwise noted, all testing performed by [facility] [address] [place] [address] CLIA: [id number] Cra: Ismael vines M.D. Lymphocytes/100 WBC (Bld) 29.9 % Normal 12-16 [facility] (74263) Comment: Performed By: #### CBCDIF ## ## Unless otherwise noted, all testing performed by [facility] [address] [place] [address] CLIA: [id number] Cra: Ismael vines M.D. MCH Entitic mass (RBC) 29.7 27.9-33.9 pg Normal [address] [place] [address] (06996) Comment: Performed By: #### CBCDIF ## ## Unless otherwise noted, all testing performed by [place] [address] CLIA: [id number] Cra: Ismael vines M.D. MCHC mass conc (RBC) 33.4 33.1-35.1 g/dL Normal 8 [facility] (01698) Comment: Performed By: #### CBCDIF ## ## Unless otherwise noted, all testing performed by [place] [address] CLIA: [id number] Cra: Ismael vines M.D. MCV Entitic volume 89.0 82.6-98.9 FL Normal 01-02-2018 [facility] (RBC) [facility] (37198) Comment: Performed By: #### CBCDIF ## ## Unless otherwise noted, all testing performed by [facility] [address] [place] [address] CLIA: [id number] Cra: Ismael vines M.D. Monocytes #/vol (Bld) 0.7 0.1-0.6 K/mcL High 01-03-20 18 [facility] (16650) Comment: Performed By: #### CBCDIF ## ## Unless otherwise noted, all testing performed by [facility] [address] [facility]. [place] [address] CLIA: [id number] Cra: Ismael vines M.D. Monocytes/100 WBC (Bld) 9.7 % Normal 2017 [facility] (37391) Comment: Performed By: #### CBCDIF ## ## Unless otherwise noted, all testing performed by [facility] [address] [place] [address] CLIA: [id number] Cra: Ismael vines M.D. Neutrophils #/vol (Bld) 4.1 1.2-6.9 K/mcL Normal 2017 [facility] (83416) Comment: Performed By: #### CBCDIF ## ## Unless otherwise noted, all testing performed by [facility] [address] [place] [address] CLIA: [id number] Cra: Ismael vines M.D. Platelet mean volume 8.6 7.0-10.6 FL Normal 8 [facility] and Entitic volume (Bld) [facility] (13592) Comment: Performed By: #### CBCDIF ## ## Unless otherwise noted, all testing performed by [facility] [address] [facility] [place] [address] CLIA: [id number] Cra: Ismael vines M.D. Platelets #/vol (Bld) 100 162-402 K/mcL Low 01-03-20 18 [facility] (40689) Comment: Performed By: #### CBCDIF ## ## Unless otherwise noted, all testing performed by [facility] [address] [place] [address] CLIA: [id number] Cra: Ismael vines M.D. RBC #/vol (Bld) 4.71 3.7-5.0 M/mcL Normal 01-02-2018 [facility] (55157) Comment: Performed By: #### CBCDIF ## ## Unless otherwise noted, all testing performed by [place] [address] CLIA: [id number] Cra: Ismael vines M.D. Segmented Neut % 58.4 % Normal 01-02-2018 [facility] (72073) Comment: Performed By: #### CBCDIF ## ## Unless otherwise noted, all testing performed by [place] [address] CLIA: [id number] Cra: Ismael vines M.D. WBC #/vol (Bld) 7.0 3.4-10.6 K/mcL Normal 01-02-2018 [facility] (75771) Comment: Performed By: #### CBCDIF ## ## Unless otherwise noted, all testing performed by [place] [address] CLIA: [id number] Cra: Ismael vines M.D. basic metabolic panel on 2018-01-02 Calcium mass conc 8.9 8.4-10.2 mg/dL Normal 01-02-2018 [facility] (38036) Comment: Performed By: #### CHEM8, [facility] #### Unless otherwise noted, all testing performed by [facility] [address] [facility]. [place] [address] CLIA: [id number] Cra: Ismael vines M.D. Chloride molar conc 105 98-108 mmol/L Normal 01-02-2018 [facility] (31373) Comment: Performed By: #### CHEM8, [facility] #### Unless otherwise noted, all testing performed by [facility] [address] [facility]. [place] [address] CLIA: [id number] Cra: Ismael vines M.D. CO2 molar conc 22 21-32 mmol/L Normal 01-02-2018 [facility] (82375) Comment: Performed By: #### CHEM8, [place] LP #### Unless otherwise noted, all testing performed by [facility] l [address] [facility]. [place] [address] CLIA: [id number] Cra: Ismael vines M.D. Creatinine mass conc 1.42 0.40-1.10 mg/dL High 8 [facility] (57306) Comment: Performed By: #### CHEM8, VA LP #### Unless otherwise noted, all testing performed by [facility] [address] [facility]. [place] [address] CLIA: [id number] Cra: Ismael vines M.D. GFR/1.73 sq M predicted 49 >60 ml/min/1.73sq.m Low 01-02-2018 [facility] and among blacks [facility] (10615) rate/area (S/P/Bld) Comment: Result Comment: Amer ican GFR Calc Performed By: #### CHEM8, VA LP #### Unless otherwise noted, all testing performed by [facility] [address] [facility]. [place] [address] CLIA: [id number] Cra: Ismael vines M.D. GFR/1.73 sq M predicted 40 >60 ml/min/1.73sq.m Low 01-02-2018 [facility] among non-blacks [facility] vol rate/area (S/P/Bld) (39265) Comment: Result Comment: Non- GFR Calc eGFR [...] with caut ion. Performed By: #### CHEM8, PARESH GOLDEN #### Unless otherwise noted, all testing performed by [facility] [address] [facility]. [place] [address] CLIA: [id number] Cra: Ismael vines M.D. Glucose mass conc 86 70-99 mg/dL Normal 01-02-2018 [facility] (83202) Comment: Result Comment: This test re sult might be falsely depressed or falsely elevated on samples drawn from patients taking Sulfasalazine and Sulfapyridine. Venipuncture should occur pr ior to taking either of these drugs. Performed By: #### CHEM8, PARESH GOLDEN #### Unless otherwise noted, all testing performed by [facility] [address] [facility]. [place] [address] CLIA: [id number] Cra: Ismael vines M.D. Potassium molar conc 4.2 3.5-5.1 mmol/L Normal 8 [facility] (25152) Comment: Performed By: #### CHEM8, VA LP #### Unless otherwise noted, [facility] [address] [place] [address] CLIA: [id number] Cra: Ismael vines M.D. Sodium molar conc 137 135-145 mmol/L Normal 01-02-2018 [facility] (87656) Comment: Performed By: #### CHEM8, VA LP #### Unless otherwise noted, all testing performed by [facility] [address] [place] [address] CLIA: [id number] Cra: Ismael vines M.D. Urea nitrogen mass conc 28 8-25 mg/dL High 2017 [facility] (11719) Comment: Performed By: #### CHEM8, [place] LP #### Unless otherwise noted, all testing performed by [facility] [address] [facility]. [place] [address] CLIA: [id number] Cra: Ismael vines M.D. brain with spect on 2017-09-15 BRAIN WITH SPECT Performed at [facility] 09-15-2017 [facility] APPROVED BY: [facility] Surinder Carpenter MD ([id number]) EXAMINATION: NM I-123 BRAIN SPECT DOPAMINE TRANSPORTER [...] BMI (Body Mass Index) 39.01 kg/m2 09-25-2019 [facility] [address] ([address]) BMI (Body Mass Index) 40.11 kg/m2 08-07-2019 [facility] [address] (74910) BMI (Body Mass Index) 33.85 kg/m2 03-16-2019 [facility] (28337) BMI (Body Mass Index) 35.1 kg/m2 03-08-2019 [facility] (23956) BMI (Body Mass Index) 33.96 kg/m2 03-01-2019 [facility] (17216) Body Temperature 98 [degF] 06-18-2020 LL-Ebjdutzmv-Hp burban 204 [facility] (70343 ) Body Temperature 98.6 [degF] 03-16-2019 [facility] (432 15) Body Temperature 98.1 [degF] 03-08-2019 [facility] (432 15) Body Temperature 98.01 [degF] 03-01-2019 [facility] (432 15) Body Temperature 98.1 [degF] 11-22-2018 [facility] (432 15) Body weight 78.93 kg 09-25-2019 [facility] [address] ([address]75) Body weight 78.61 kg 08-07-2019 [facility] [address] (97353) BP Diastolic 88 mm[Hg] 06-18-2020 OY-Oilhafrfa-Uzz urban 204 Movement [facility] (26180 ) BP Diastolic 92 mm[Hg] 06-18-2020 WP-Dazhdwktf-Mlp urban 204 [facility] (73720 ) BP Diastolic 72 mm[Hg] 09-25-2019 [facility] [address] (67182) BP Diastolic 70 mm[Hg] 08-07-2019 [facility] [address] (83872) BP Diastolic 79 mm[Hg] 03-16-2019 [facility] (4321 5) BP Systolic 117 mm[Hg] 06-18-2020 TM-Ixjbhymfz-Ixr urban 204 [facility] (24336 ) BP Systolic 125 mm[Hg] 06-18-2020 MK-Vcamjxnww-Ehb urban 204 [facility] (72616 ) BP Systolic 110 mm[Hg] 09-25-2019 [facility] [address] (98952) BP Systolic 106 mm[Hg] 08-07-2019 [facility] [address] (79535) BP Systolic 138 mm[Hg] 03-16-2019 [facility] (4321 5) BSA (Body Surface Area) 1.67 m2 09-25-2019 [facility] [address] (02012) BSA (Body Surface Area) 1.65 m2 08-07-2019 [facility] [address] (10116) Height 142.24 cm 06-18-2020 FM-Jghuhchuf-Xhz urban 204 [facility] (60649 ) Height 142.24 cm 09-25-2019 [facility] [address] (71141) Height 140 cm 08-07-2019 [facility] [address] (33653) Height 142.2 cm 03-16-2019 [facility] (4321 5) Height 139.7 cm 03-08-2019 [facility] (4321 5) Pulse (Heart Rate) 109 /min 06-18-2020 [facility] (49448 ) Pulse (Heart Rate) 103 /min 06-18-2020 [facility] 204 Movement [facility] (50267 ) Pulse (Heart Rate) 73 /min 03-16-2019 [facility] (4 3215) Pulse (Heart Rate) 93 /min 03-08-2019 [facility] (4 3215) Pulse (Heart Rate) 93 /min 03-01-2019 [facility] (4 3215) Pulse Oximetry 97 % 03-16-2019 [facility] (4321 5) Pulse Oximetry 98 % 03-08-2019 [facility] (4321 5) Pulse Oximetry 98 % 03-01-2019 [facility] (4321 5) Pulse Oximetry 98 % 11-22-2018 [facility] (4321 5) Pulse Oximetry 96 % 11-22-2018 [facility] (4321 5) Respiratory Rate 18 /min 06-18-2020 ZK-Krxtxdalb-Nb burban 204 [facility] (80565 ) Respiratory Rate 14 /min 03-16-2019 [facility] (432 15) Respiratory Rate 18 /min 03-08-2019 [facility] (432 15) Respiratory Rate 18 /min 03-01-2019 [facility] (432 15) Respiratory Rate 16 /min 11-22-2018 [facility] (432 15) Weight 68.49 kg 03-16-2019 [facility] (4321 5) Weight 68.49 kg 03-08-2019 [facility] (4321 5) Weight 68.49 kg 03-01-2019 [facility] (4321 5) Encounters Date Type Reason Provider Location 09-15-2017 - Ambulatory VALENTINA MONTGOMERY Facility :[facility] 09-16-2017 [facility] 08-12-2017 Ambulatory VALENTINA CHOPRA Facility:[facility] 01-05-2017 Ambulatory Rishabh Rodriguez [facility] Prim xavier Care Physicians 03-16-2019 - Emergency department [facility] 03-16-2019 patient visit Physicians Luis Medical O bservation Gabriellacorky Generic [facility] Physicians Luis Moody 05-13-2018 - Emergency department SUMMER Roa Facility: 05-14-2018 patient visit MENDY 04-22-2018 Emergency department Facilit y:Islam patient visit [facility] 03-15-2018 - Emergency department Bobby Zavala Bobby Facility:[place] 03-15-2018 patient visit Selvin Zavala 01-02-2018 - Emergency department Leigh Ann Ayala F acility:[place] 01-02-2018 patient visit Leigh Ann Ayala 08-06-2017 ERRONEOUS Mansoor Wheeler [facility] Primary ENCOUNTER-DISREGARD Care Vanessa sicsummer 03-16-2019 - Evaluation and Karin Richards [facility] 03-16-2019 management of Luis Moody EEG inpatient Comment: Arrived 11-22-2018 - Office consultation Chest pain at [facility] Heart 11-22-2018 new/estab patient [address] [place] min Physicians Comment: Chest pain at rest; Essential hypertension; Chronic kidney disease, stag e III (moderate) ([facility]) 03-08-2019 - Office outpatient Sodium valproate Nedra Pham [facility] 03-12-2019 visit 15 minutes adverse reaction [place] [facility] Comment: Valproic acid toxicity, acci dental or unintentional, subsequent encounter (Primary Dx); Hypokalemia; Thrombocytopenia ([facility]) 05-19-2018 - Office outpatient Abdominal pain Mansoor Wheeler [facility] 05-19-2018 visit 15 minutes [place] Primary Car e Physicians 11-22-2018 - Office outpatient Essential Mansoor Wheeler [facility] 11-22-2018 visit 25 minutes hypertension [place] [facility] Physicians Comment: Essential hypertension; Chronic kidney disease, stag e III (moderate) ([facility]); Viral URI 10-12-2018 - Office outpatient Chest pain at Nedra Diana [facility] 10-12-2018 visit 25 minutes rest [facility] Physic summer Comment: Chest pain at rest (Primary Dx); Essential hypertension; Chronic kidney disease, stage III (moderate ) (HCC) 06-16-2018 - Office outpatient History of Mansoor Wheeler [facility] 06-16-2018 visit 25 minutes urinary tract [facility] Physi cians infection Comment: History of UTI (Primary Dx); Gastroesophageal reflux disease, esophagitis presence not specified; Esse ntial hypertension; Obesity, Class I, BMI 30.0-34.9 (see actual BMI) 05-03-2018 - Office outpatient Second [facility]2018 visit 25 minutes foot [place] [facility] 01-04-2018 - Office/outpatient Gastroesophageal reflux [facility] 01-04-2018 visit, est, level disease [place] Primary Ca re 4 Physicians 07-08-2018 - Patient encounter Jemma Figueroa [facility] 07-08-2018 Primary Care Physicians Comment: Chronic Care Management (fol low up) 06-15-2018 Patient encounter Jemma Bartholomew Henry [facility] Primary Care Physicians 06-10-2018 Patient encounter Jemma Bartholomew Marion [facility] Primary Care Physicians 06-06-2018 Patient encounter Jemma Bartholomew [facility] Primary Care Physicians 06-03-2018 Patient encounter Congestive heart Jemma Figueroa [facility] alth failure Primary Care Physicians 06-18-2020 Patient encounter Disease MG-Neurolo gy-Subu procedure rban 204 Moveme nt Disorders (4412 1) 03-14-2020 Patient encounter Disease MG-Neurolo gy-Subu procedure rban 204 Moveme nt Disorders (4412 1) 11-30-2019 - Patient encounter HOLDENBRANNON Maldonado eld 11-30-2019 procedure [facility] (22647 ) NEDRA Janina spring11-16-2019 - Patient encounter HOLDENBRANNON Pablofi eld 11-16-2019 procedure [facility] (38860 ) NEDRA Janina spring10-30-2019 Patient encounter Disease MG-Neurolo gy-Subu procedure rban 204 Moveme nt Disorders (4412 1) 10-12-2019 - Patient encounter HOLDEN MONAZZAM Mansfi eld 10-12-2019 procedure [facility] (88081 ) NEDRA Diana spring09-25-2019 Patient encounter Disease [facility] procedure [address] [place] [address] (84417) 09-21-2019 - Patient encounter HOLDEN MONAZZAM Mansfi eld 09-21-2019 procedure [facility] (74261 ) NEDRA Diana spring2019 - Patient encounter HOLDEN MONAZZAM Mansfi eld 2019 procedure [facility] (17923 ) NEDRA Diana spring08-11-2019 - Patient encounter HOLDEN MONAZZAM Mansfi eld 08-11-2019 procedure [facility] (63780 ) NEDRA Diana spring08-10-2019 - Patient encounter HOLDEN MONAZZAM Mansfi eld 08-10-2019 procedure [facility] (04827 ) NEDRA Diana spring08-07-2019 Patient encounter Disease [facility] procedure [address] [place] [address] (10460) 07-21-2019 - Patient encounter HOLDEN MONAZZAM Mansfi eld 07-21-2019 procedure [facility] (99069 ) NEDRA Diana spring07-13-2019 - Patient encounter HOLDEN MONAZZAM Mansfi eld 07-13-2019 procedure [facility] (61958 ) NEDRA Diana spring07-05-2019 - Patient encounter HOLDEN MONAZZAM Mansfi eld 07-05-2019 procedure [facility] (73399 ) NEDRA Diana spring06-26-2019 - Patient encounter HOLDEN MONAZZAM Mansfi eld 06-26-2019 procedure [facility] (44646 ) NEDRA Diana spring05-02-2019 - Patient encounter HOLDEN MONAZZAM Mansfi eld 05-02-2019 procedure [facility] (44521 ) NEDRA Diana spring04-03-2019 Patient encounter LUI [facility] procedure YASH Ambulatory NEDRA Diana (62483) spring03-31-2019 - Patient encounter Jemma Figueroa [facility] 03-31-2019 procedure Primary Care Physicians 03-20-2019 Patient encounter ROCK MARQUEZ [facility] procedure NEDRA M. Ambulatory [place] (56766) 03-17-2019 - Patient encounter Jemma Figueroa [facility] 03-17-2019 procedure Primary Care Physicians Comment: Transition Of Care (INitial outreach) 03-16-2019 - Patient encounter TERRY SHONNA [facility] 03-17-2019 procedure NEDRA Diana Ambulatory (000 00) [place] LUIS RICHARDS [facility] [place] CAREN Mckoy [facility] RANDY RICHARDS 03-08-2019 - Patient encounter [facility] [facility] 03-12-2019 procedure [place] NEDRA (24125) [facility] 03-08-2019 - Patient encounter [facility] 03-12-2019 procedure [place]RA Ambulatory (23345) . [place] 03-01-2019 - Patient encounter [facility] 03-05-2019 procedure [place] NEDRA Ambulatory (91803) [facility] 12-26-2018 - Patient encounter [facility] 12-27-2018 procedure CATRACHOJai PHELPS (01266) ARIELLA CATRACHO [place]OO[place] 12-26-2018 - Patient encounter Chest pain at [facility] & 12-26-2018 procedure rest Catracho WHEELER Vascular MENDY BROOKE Comment: Arrived Chest pain at rest 12-21-2018 Patient encounter Facility:9 509 procedure 12-20-2018 Patient encounter ARCENIO [facility] Ambulatory procedure CATRACHO WHEELER (00420) [place] 12-13-2018 Patient encounter [facility] procedure SUMMER BROOKE (22577) 12-12-2018 Patient encounter Facility:9 509 procedure 12-08-2018 Patient encounter Mattie Phelps E Fac ility:[place] procedure Catracho 12-05-2018 Patient encounter [facility] procedure SUMMER BROOKE (15103) 12-03-2018 Patient encounter Facility:9 509 procedure 12-02-2018 Patient encounter Facility:9 509 procedure 12-01-2018 Patient encounter Facility:9 509 procedure 11-29-2018 Patient encounter STEFANIA MCIHAEL [facility] procedure SUMMER [place]OO[place] (51330) 11-25-2018 Patient encounter Facility:9 509 procedure 11-22-2018 - Patient encounter MANSOOR BROOKE [facility] 12-12-2018 procedure MANSOOR BROOKE ([id number]) 11-22-2018 Patient encounter Mattie Reed ility:[place] procedure [place] 11-22-2018 - [facility] procedure Catracho Krishnan Catracho ARCENIOARIELLA HAYDEN [place] [facility] [place] MANSOOR GUTIERREZNA 11-21-2018 Patient encounter STEFANIA RODRIGUEZ [facility] procedure SUMMER MEND[place] ([id number]) 11-18-2018 Patient encounter TERRY KILPATRICK [facility] procedure [place] ([id number]) 11-17-2018 Patient encounter Facility:9 509 procedure 10-26-2018 Patient encounter Facility:9 509 procedure 10-24-2018 - Patient encounter Kindra Geue [facility] Primary Care 10-24-2018 procedure Physicians Comment: PRIOR AUTHORIZATION (CARDURA ) 10-14-2018 Patient encounter Facility:9 509 procedure 10-12-2018 - Patient encounter NEDRA Diana [facility] 10-16-2018 procedure MANSOOR GUTIERREZNA (74730) 10-02-2018 Patient encounter Facility:9 509 procedure 09-23-2018 Patient encounter TERRY KILPATRICK [facility] procedure SUMMER MAX ([id number]) SUM[place] 09-22-2018 Patient encounter Facility:9 509 procedure 08-15-2018 Patient encounter KINDRA VIVAR [facility] procedure [place] (03308) 08-14-2018 Patient encounter Facility:9 509 procedure 06-23-2018 - Patient encounter MANSOOR BROOKE [facility] 06-27-2018 procedure MANSOOR BROOKE (72293) 06-16-2018 Patient encounter Mansoor Reed ility:[place] procedure [place] 06-16-2018 - Patient encounter MANSOOR BROOKE [facility] 06-20-2018 procedure MANSOOR BROOKE (03753) 05-31-2018 Patient encounter AROLDO SALCEDO [facility] Ambulatory procedure EUGENE MANSOOR WHEELER (34743) [place] 05-24-2018 Patient encounter Facility:9 509 procedure 05-22-2018 Patient encounter Facility:9 509 procedure 05-20-2018 Patient encounter Facility:9 509 procedure 05-19-2018 Patient encounter Facility:9 509 procedure 05-12-2018 Patient encounter Facility:9 509 procedure 04-23-2018 Patient encounter Facility:9 509 procedure 04-22-2018 Patient encounter Facility:9 509 procedure 03-18-2018 Patient encounter Facility:9 509 procedure 03-17-2018 Patient encounter Facility:9 509 procedure 07-06-2017 - Patient encounter aMnsoor Brooke [facility] 07-06-2017 procedure Physicians Comment: ERRONEOUS ENCOUNTER--DISREGA RD (Primary Dx) 07-15-2017 Postop follow-up Surgical Williams Ray [facility] visit follow-up [facility] 06-28-2017 Postop follow-up Esophageal Williams Ray [facility] visit dysphagia [facility] 03-01-2019 - Transitional care Sodium valproate Nedra enamorado 03-05-2019 manage srvc 14 day adverse reaction [facility] discharge Physicians Comment: Valproic acid toxicity, acci dental or unintentional, subsequent encounter; Essential hypertension Procedures Procedure Name Date Provider Location Follow-up visit 06-18-2020 [facility] (44341) Assay of copper 06-18-2020 RA-Ipylsfacy-Sky urba n 204 [facility] (82717 ) Assay of folic acid serum 06-18-2020 MG-Kathryn rology-Suburba n 204 Movement [facility] (55128 ) Assay of mercury quantitative 06-18-2020 MG -Neurology-Suburba n 204 Movement [facility] (18555 ) Blood count complete auto&auto 06-18-2020 M E-Rzvcfapou-Wasadnn difrntl wbc n 204 [facility] (28675 ) CELIAC DISEASE SEROLOGY PANEL 06-18-2020 MG -Neurology-Suburba n 204 [facility] (91697 ) Ceruloplasmin 06-18-2020 ZQ-Qxrsprhrt-Dwk urba n 204 Movement [facility] (21579 ) Cyanocobalamin vitamin b-12 06-18-2020 MG-N eurology-Suburba n 204 Movement [facility] (02815 ) Immunoassay analyte quant 06-18-2020 MG-Kathryn rology-Suburba radioimmunoassay n 204 [facility] (49620 ) TSH WITH REFLEX TO FREE T4 IF 06-18-2020 MG -Neurology-Suburba ABNORMAL n 204 Movement [facility] (63170 ) Glucose [Mass/volume] in Blood 03-16-2019 Luis Young [facility] (35873) Electroencephalogram w/rec 03-16-2019 - Karin Richards [facility] (50695) awake&asleep 03-16-2019 Thyrotropin [Units/volume] in 03-16-2019 Karinlucila Roe [facility] (17798) Serum or Plasma by Detection limit <= 0.005 mIU/L Valproate [Mass/volume] in 03-16-2019 Karin Richards [place] (04792) Serum or Plasma Cyanocobalamin vitamin b-12 03-16-2019 Karin Richards [facility] (25595) Computerized tomography, 03-16-2019 - External Transcribed [place] (87352) limited studies 03-16-2019 Myocardial spect single study 12-26-2018 - Arcenio Binu on [facility] (33905) at rest or stress 12-26-2018 Lipid 1996 panel - Serum or 11-22-2018 Mattie Hayden [facility] (80658) Plasma Urinalysis macro (dipstick) 06-16-2018 - Mansoor Wheeler Mendy [place] (86310) panel - Urine 06-16-2018 Microscopic observation 01-04-2018 - [facility] (52596) [Identifier] in Cervix by Cyto 01-04-2018 stain History of Breast Surgery [facility] Reduction Procedure [address] (22449) Reduction mammoplasty [facility] [address] (11427) Plan of Treatment Plan Description Date Location PAP SMEAR PAP SMEAR 01-04-2021 - [facility] (4321 5) 01-04-2021 TETANUS EVERY 10 YR TETANUS EVERY 10 YR 01-04-2021 - [facility] (49040) 01-04-2021 Office Visit 06/08/2019 Office Visit 06-08-2019 [facility] Primary Primary Care [place], 06-08-2019 Care Physic summer Diana, CASING WORKER [address] [place] [address] [phone] Office Visit 03/23/2019 Office Visit 03-23-2019 - [facility] Primary Primary Care [place], 03-23-2019 Care Physic summer Diana, CASING WORKER [address] [place] [address] [phone] Office Visit 03/08/2019 Office Visit 03-08-2019 - [facility] Primary Primary Care [place], 03-08-2019 Care Physic summer Diana CNP [address] [place] [address] [phone] Appointment 01/03/2019 Appointment 01-03-2019 - [facility] 01-03-2019 Vascular Physicians MD Ariella [address] [place] [address] [phone] Appointment 12/26/2018 Appointment 12-26-2018 - [facility] 12-26-2018 Vascular Physicians MD Ariella [address] [place] [address] [phone] Office Visit 12/23/2018 Office Visit 12-23-2018 - [facility] Primary Primary Care Mansoor Brooke 12-23-2018 Care Magali Wheeler MD [address] [place] [address] [phone] Appointment 12/08/2018 Appointment 12-08-2018 - [facility] 12-08-2018 Vascular Physicians MD Ariella [address] [place] [address] [phone] Appointment 12/08/2018 Appointment 12-08-2018 - [facility] 12-08-2018 Vascular Physicians MD Ariella [address] [place] [address] [phone] Office Visit 11/11/2018 Office Visit 11-11-2018 - [facility] Primary Primary Care [place], 11-11-2018 Care Physic summer Diana, CASING WORKER [address] [place] [address] [phone] Office Visit 11/01/2018 Office Visit 11-01-2018 - [facility] [place], 11-01-2018 Vascular Phys lori Diana, CASING WORKER [address] [place] [address] [phone] Mattie Hayden MD [address] [place] [address] [phone] Office Visit 08/25/2018 Office Visit 08-25-2018 - [facility] Primary Primary Care Mansoor Brooke 08-25-2018 Care Ph yinka Wheeler MD [address] [place] [place] [id number] [phone] SEQUENTIAL INFLUENZA SEQUENTIAL INFLUENZA 06-18-2018 - [facility] ([id number]) VACCINE (#1) VACCINE (#1) 06-18-2018 SEQUENTIAL INFLUENZA SEQUENTIAL INFLUENZA 06-18-2018 [facility] ([id number]) VACCINE (#1) VACCINE (#1) Office Visit 06/16/2018 Office Visit 06-16-2018 - [facility] Primary Primary Care Mansoor Brooke 06-16-2018 Care Ph yinka Wheeler MD [address] [id number] [phone] Office Visit no information 04-05-2018 - [facility] Prima ry 04-05-2018 Care Physicians Office Visit 08/20/2017 Office Visit 08-20-2017 [facility] Primary Care MendyMansoor [facility] Ph yinka Wheeler MD [address] [id number] [phone] Office Visit 08/10/2017 Office Visit 08-10-2017 [facility] Primary Care MendyMansoor [facility] Magali Wheeler MD [address] [place] [id number] [phone] Follow-Up 07/09/2017 Follow-Up 07-09-2017 [facility] Surgical General Surgery Meera Lobo MD [address] [place] [address] [phone] Office Visit 07/06/2017 Office Visit 07-06-2017 [facility] Primary Primary Care Mendy Mansoor [facility] Magali Wheeler MD [address] [id number] [phone] SEQUENTIAL INFLUENZA SEQUENTIAL INFLUENZA 06-18-2017 - [facility] ([id number]) VACCINE (#1) VACCINE (#1) 06-18-2017 URINE MICROALBUMIN URINE MICROALBUMIN 1983 - [facility] ([id number]) 1983 Wellness Visit Wellness Visit 1976 - [facility] (4321 5) 1976 Mammogram Mammogram 1973 - [facility] (4321 5) 1973 PAP SMEAR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 EDTThis nurse advised patient of imminent discharge. She states that she walks at home and sometimes uses a walker. She has used a bedpan and not been out of bed since arriving at [facility]. She lives with her cousin. She [...] toxicity. She follows with Dr. Gillette from [place]. She was also using Keppra 750 mg [...] to 1000 mg twice a day. 3. Jefferson seizure precautions. 4. Monitor frequency alcohol seizures. [...] Portions of this chart was created using [employer] voice recognition software. Occasional wrong-word or sound-like [...] - 03/16/2019 10:51 AM EDTReport from [facility] Michelle includes that she has requested that Pharmacy [...] 9:02 AM EDTThis patient has alerted the aideJessica that she is feeling jumpy and that she feels a seizure coming. Meena Way RN - 03/16/2019 7:[facility] [place] with X-Ray information with Mattie from [place] per instructions from IN[facility] Le to be scanned into patient's record. Meena Way RN - 03/16/2019 7:41 AM EDTPatikelechi's medications prior to admission are present in the med room in a cooler and need to be reviewed with this nurse and patient. There are reportedly (per patient) medications therein that she is allergic to. Per hotel night auditor, admission is not complete Meena Way RN - 03/16/2019 7:39 AM EDTPatikelechi is awake and alert, sitting in bed and able to express her needs. She reports that the tremors she is having at bedside report time are her baseline. No seizure activity reported. She also reports that she will be going to [facility] in [place] soon. documented in this encounter UNRECOGNIZED CONTENT PROVIDED BELOW FOR UNRECOGNIZED SECTION Reason for Visit Reason Comments Gastroesophageal Reflux Hypertension Error Reason Comments Follow-up ED 09/22 states stomach feeli ng better, seeking neurologist Dr. Chopra, Follow-up ED 10/02 left shoulder pain states feeling better had falls Reason Comments PRIOR AUTHORIZATION CARDURA Reason Comments Establish Care referred to office by PCP, s /p mian ho ED x2 for abdominal pain, L radiating shoulder pain Status Reason Specialty Diagnoses / Referred By Contact Refe rred To Contact Procedures Closed Cardiology Diagnoses Essential hypertension Chronic kidney disease, stage III (moderate) ([facility]) Chest pain at rest Spring, Mattie Chen, CASING WORKER MD Ariella [address] [place], [place] [address] [place] [address] Phone: Fax: Reason Comments Hypertension Sore Throat X 3 days Status Reason Specialty Diagnoses / Referred By Referred To Procedures Contact Contact Pending Review Radiology Diagnoses Chest pain at rest Mattie Hayden Procedures NM Myocardial Perfusion Study Single - Stress Only NM Myocardial Perfusion Multiple SPECT MD Ariella [address] [place] [address] Reason Comments Transition Of Care Pt reports [...] 03/16/2019 4:18 PM EDTAssociated Order(s): EEG (STANDARD) [facility] EEG Report Reason for EEG: Seizures. Summary: [...] TO NEUROLOGY Neurology Inpatient Consult [facility] 03/16/2019 Patient: Reema Motta Date of : 1975 (43 y.o.) Referring Provider: Refer to consult order in electronic medical record PCP: Nedra Brewer CNP ASSESSMENT: 43 y.o. female presented to [facility] on 03/16/2019 with seizures. PLAN: Seizure (HCC) [...] toxicity. She follows with Dr. Gillette from [place]. She was also using Keppra 750 mg [...] to 1000 mg twice a day. 3. Jefferson seizure precautions. 4. Monitor frequency alcohol seizures. 5. Avoid trigger factors or precipitating factors. 6. Follow-up closely with her neurologist, Dr. Beavis I have personally reviewed/visualized the patient's images, as documented above. I have personally reviewed the patient's labs, as listed above. Impression, plan and suggestions was discussed with the patient. Questions and concerns were discussed and addressed. Abiola lazaro: Portions of this chart was created using [employer] voice recognition software. Occasional wrong-word or sound-like [...] This occurred after she was discharged from [facility] where her Depakote was discontinued [...] Medical History: Diagnosis Date ? Acquired thrombocytopenia ([facility]) [facility]/Darren Shaikh ? Acute kidney injury ([facility]) 05/22/2018 [facility]/Jonatan Chiu DO ? Anxiety ? Calcaneal spur of right foot 2017 Documented on x-ray ? Chronic kidney disease, stage III (moderate) ([facility]) 2000 ? Congestive heart failure (CHF) ([facility]) [facility]/Darren Shaikh ? Depression ? Epilepsy ([facility]) 08/06/2011 [facility]- Dr. Chopra ? Epilepsy ([facility]) 1993 ? Facet degeneration of lumbar region 10/14/2018 [facility]/Jono ALEXIS, Saulius Mild facet degenerative changes seen in the lower lumbar spine ? Fatty liver [facility]/Joe Mendieta MD Mild fibrofatty changes of the liver ? Fluid collection (edema) in the arms, legs, hands and feet 03/09/2018 Dr valentina Chopra ? Gastritis determined by endoscopy 12/29/2016 Dr. GonzalezLqnxno-Ekhtlpdna-msjsyxyrxpsvu nonbleeding with biopsy ? Hepatic steatosis [facility]/Heidy Jara MD Mild ? Hiatal hernia 12/29/[address] Lobo grade 4 ? Hypercholesterolemia [facility]/Jonatan Chiu DO ? Hypertension 2000 2000-present ? Insomnia [facility]/Darren Shaikh ? Kidney stone [facility]/Darren Shaikh ? Lung nodule 12/15/2017 0.5 cm pleural based nodule in right middle lobe. Mild linear atelectasis ? Mitral valve prolapse [facility]/Darren Shaikh ? Motor seizure ([facility]) 03/16/2019 INFO GAINED FROM: /[facility] ED VISIT --- LOZANO DO,CAREN ? Rectus diastasis [facility]/Heidy Jara MD Present with small wide necked perumbical ventral containing fat. ? Second degree burn of foot 04/23/2018 Right Foot - [facility] ? Sleep apnea ? Stroke (HCC) 2001 mild ? Tremor Past Surgical History: Procedure Laterality Date ? Conner pH capsule placement 02/01/2017 Dr. Lobo ? BREAST REDUCTION 2000 bilateral ? EGD 12/29/2016 Dr. Lobo-[facility]-grade 4 hiatal hernia-nonperforating gastritis ? ESOPHAGEAL MANOMETRY 02/01/2017 ? HERNIA REPAIR 06/11/2017 Dr Richards ? INTRAUTERINE DEVICE INSERTION 02/15/2015 Dr. Pennie Meyers OBGYN ? Laparoscopic LINX sphincter augmentation with cruroplasty [...] file Gets together: Not on file Attends alevism service: Not on file Active member of [...] ROUTE 4 TIMES EVERY DAY 07/31/16 Historical ProviderMD mirtazapine (REMERON) 15 MG tablet TAKE 2 [...] Oral Daily ? venlafaxine 37.5 mg Oral [facility] PRN Medications: senna OBJECTIVE: Physical Examination: BP 138/79 Pulse 73 Temp 98.6 ?F (37 ?C) (Oral) Resp 14 Ht 4' 8 Wt 68.5 kg (151 lb) NxG430% BMI 33.85 kg/m? Patient is awake and [...]
--- OUTSIDE RECORDS SUMMARY | 2020-08-04 09:19 | XMS RPT_ITS | CCD ---
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 Performed By: #### MDIFF ### [address] [address] Monocytes/100 WBC (Bld) 6.0 2.0 - 10.0 % Normal 10-25 [facility] (63463) Comment: Performed By: #### MDIFF ### [address] [address] SEG NEUTROPHIL 3.57 1.20 - 7.00 x10E9/L Normal 10-25-2019 [facility] (24000) Comment: Performed By: #### MDIFF ### [address] [address] lipase on 8 Lipase [Catalytic 39 9 - 82 U/L Normal 10-25-2019 [facility] (71754) Comment: Result Comment: Venipuncture immediately after or during the administration of Metamizole may lead to falsely low results. Testing should be performed immediately prior to Metamizole dosing. X-jnajmd-v-benzoquinone imin e (metabolite of Acetaminophen) will generate erroneously lo w results in samples for patients that have taken toxic doses of acetaminophen. Performed By: #### LIPAS ### [address] [address] hcg,beta-quant on 2 HCG,BETA-QUANT <2 Normal 10-25-2019 [facility] (19772) Comment: Result Comment: Low-level po sitive HCG [...] usi ng a different test methodology at [facility] than other legacy [facility]. Direct result comparison should only be made within t he same method. REF VALUES NON FEMALE <5 MALES <5 Performed By: #### HCGQU ### [address] [address] comprehensive panel on 2019-10-25 Albumin [Mass/Vol] 4.1 3.4 - 5.0 g/dL Normal 10-25-2019 [facility] (02114) Comment: Performed By: #### CMP ####[address] [place] [id number] ALP [Catalytic activity/Vol] 56 33 - 110 U/L Normal 0 10-25-2019 [facility] (00 000) Comment: Performed By: #### CMP ####S [address] [address] ALT [Catalytic activity/Vol] 23 7 - 45 U/L Normal 0 10-25-2019 [facility] (00 000) Comment: Result Comment: Patients graciela ated with Sulfasalazine may generate falsely decreased results fo r ALT. Performed By: #### CMP ####S [address] [address] Anion gap [Moles/Vol] 14 10 - 20 mmol/L Normal 10-25-19 [facility] (99839) Comment: Performed By: #### CMP ####S [address] [address] AST [Catalytic activity/Vol] 24 9 - 39 U/L Normal 0 10-25-2019 [facility] (00 000) Comment: Performed By: #### CMP ####S [address] [address] Bilirubin [Mass/Vol] 0.4 0.0 - 1.2 mg/dL Normal 0 [facility] (15003) Comment: Performed By: #### CMP ####S [address] [address] Calcium [Mass/Vol] 8.7 8.6 - 10.3 mg/dL Normal 10-25-2019 [facility] (39315) Comment: Performed By: #### CMP ####S [address] [address] Chloride [Moles/Vol] 100 98 - 107 mmol/L Normal 0 [facility] (47802) Comment: Performed By: #### CMP ####S [address] [address] Creatinine [Mass/Vol] 1.23 0.50 - 1.05 mg/dL High 2019 [facility] (00 000) Comment: Performed By: #### CMP ####S [address] [address] GFR- AM. 57 >60 mL/min/1.73m2 Abnormal 10-25-2019 [facility] (00843) Comment: Result Comment: CALCULATIONS OF ESTIMATED GFR ARE PERFORMED USING THE MDRD STUDY EQUATIO N FOR THE IDMS-TRACEABLE CREATININE ME THODS. CLIN CHEM 2007;53:766-72 Performed By: #### CMP ####S [address] [address] GFR-NON AM. 47 >60 mL/min/1.73m2 Abnormal 2019 [facility] (00 000) Comment: Performed By: #### CMP ####S [address] [address] Glucose [Mass/Vol] 96 74 - 99 mg/dL Normal 10-25-2019 [facility] (93614) Comment: Performed By: #### CMP ####S [address] [address] HCO3 (Bld) [Moles/Vol] 28 21 - 32 mmol/L Normal 020 [facility] (33186) Comment: Performed By: #### CMP ####S [address] [address] Potassium [Moles/Vol] 3.7 3.5 - 5.3 mmol/L Normal 10-25-19 20 [facility] (00 000) Comment: Performed By: #### CMP ####S [address] [address] Protein [Mass/Vol] 6.3 6.4 - 8.2 g/dL Low 10-25-2019 [facility] (48987) Comment: Performed By: #### CMP ####S [address] [address] Sodium [Moles/Vol] 138 136 - 145 mmol/L Normal 10-25-2019 [facility] (11212) Comment: Performed By: #### CMP ####S [address] [address] Urea nitrogen [Mass/Vol] 12 6 - 23 mg/dL Normal 10-25 [facility] (12676) Comment: Performed By: #### CMP ####S [address] [address] clinical intervention - pharmacy on 2019-10-25 Clinical Pharmacist's Clinical Intervention: Norm al 10-25-2019 [facility] Intervention - Active and Pending Medications: [facility] Morphine Injectable, DOSE = 4 mg IntraVenous Push Once, 25-Oct-2019, Active (79090) Pharmacist intervention: Contacted nurse Type of recommendation: [...] - 5 minutes Electronic Signatures: Odilia Holcomb ([facility]) (Signed 25-Oct-2019 14:15) Authored: Pharmacist's Clinical Intervention Last Updated: 25-Oct-2019 14:15 by Odilia Holcomb ([facility]) chest 1 view on CHEST 1 VIEW Normal 10-25-2019 [facility]Y: CHEST 1 VIEW; 10/25/2019 2:12 pm INDICATION: shorntess of breath. COMPARISON: 03/22/2019 ACCESSION NUMBER(S): [id number] ORDERING CLINICIAN: TENISHA LANE FINDINGS: CHEST AP [...] distribution 14.0 11.5 - 14.5 % Normal [facility] width (RBC) [Ratio] Health (33366) Comment: Performed By: #### CBCDF ### [address] [address] Hematocrit (Bld) [Volume 41.2 36.0 - 46.0 % Normal [facility] fraction] Health (00 000) Comment: Performed By: #### CBCDF ### [address] [address] Hemoglobin (Bld) 14.0 12.0 - 16.0 g/dL Normal 10-25-2019 [facility] [Mass/Vol] Health (0 0000) Comment: Performed By: #### CBCDF ### [address] [address] MCHC (RBC) [Mass/Vol] 33.9 32.0 - 36.0 g/dL Normal 2019 [facility] (00 000) Comment: Performed By: #### CBCDF ### [address] [address] MCV (RBC) [Entitic vol] 91 80 - 100 fL Normal 2019 [facility] (37096) Comment: Performed By: #### CBCDF ### [address] [address] Nucleated RBC/100 WBC 0.1 /100 WBC Normal 10-25-19 [facility] (Bld) [Ratio] (80956 ) Comment: Performed By: #### CBCDF ### [address] [address] Platelets (Bld) [#/Vol] 103 150 - 450 x10E9/L Low 2019 [facility] (00 000) Comment: Performed By: #### CBCDF ### [address] [address] RBC (Bld) [#/Vol] 4.55 4.00 - 5.20 x10E12/L Normal 10-25-2019 [facility] (00 000) Comment: Performed By: #### CBCDF ### [address] [address] WBC (Bld) [#/Vol] 7.6 4.4 - 11.3 x10E9/L Normal 10-25-2019 [facility] (25007) Comment: Performed By: #### CBCDF ### [address] [address] DIFFERENTIAL SEE MANUAL DIFF Normal 10-25-2019 [facility] (43717) Comment: Performed By: #### CBCDF ### [address] [address] 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 [facility]: [id number] EXP: 06/2021 LOT# [id number] History of Present Illness 44-year-old with abnormal [...] TAKE 1 TABLET T WICE DAILY; Therapy: [id number] to Recorded Dispense: 0 Days ; #: Suffic ient Tablet Delayed Release; Refill: 0; SHARLENE = Y; Record; Last Updated By: Salma Montgomery; 05/31/2013 9:56:09 AM Depakote ER 500 MG Oral Tablet Extended Release 24 Hour; TRINIDAD E 1 TABLET BY MOUTH TWICE A DAY; Therapy: [id number] to Recorded Rx By: KEYSHA; Dispense: 30 [...] MG TOT AL) BY MOUTH DAILY; Therapy: [id number] to Recorded Rx By: MENDY; Dispense: 30 D ays ; #:30; Refill: 0; SHARLENE = N; Record; Last Updated By: Minerva Hauser; 08/07/2019 10:53:56 AM Keppra 1000 MG Oral Tablet; TAKE 1 TABLET TWICE DAILY; Therapy: 37Whi9809 to Recorded Dispense: 0 Days ; #:60 Tabl et; Refill: 0; SHARLENE = Y; Record; Last Updated By: Salma Montgomery; 05/31/2013 9:56:09 AM Keppra 750 MG Oral Tablet; TAKE 1 TABLET BY MOUTH TWICE A DA Y; Therapy: [id number] to Recorded Rx By: KEYSHA; Dispense: 30 [...] TAKE 1 TABLET DAILY DIRECTE D; Therapy: [id number] to Recorded Dispense: 0 Days ; #:30 Tabl et; Refill: 0; SHARLENE = N; Record; Last Updated By: Salma Montgomery; 05/31/2013 9:56:09 AM LORazepam 1 MG Oral Tablet; TAKE 1 TABLET BY MOUTH FOUR TIME S A DAY; Therapy: [id number] to Recorded Rx By: KEYSHA; Dispense: 30 D ays ; #:120; Refill: 0; SHARLENE = N; Record; Last Updated By: Minerva Hauser; 08/07/2019 10:53:56 AM LORazepam 1 MG Oral Tablet; TAKE 1 TABLET EVERY 6 TO 8 HOURS NEEDED; Therapy: 69Clm0430 to Recorded Dispense: 0 Days ; #: [...] MOUTH EVERY DAY AT SUPPER TIME; Therapy: 66Mty8465 to Recorded Rx By: KEYSHA; Dispense: 30 D ays ; #:30; Refill: 0; SHARLENE = N; Record; Last Updated By: Minerva Hauser; 08/07/2019 10:53:56 AM Potassium Chloride ER 10 MEQ Oral Capsule Extend ed Release; TAKE 1 CAPSULE BY MOUTH TWICE A DAY; Therapy: 92Xrq7667 to Recorded Rx By: MENDY; Dispense: 30 D ays ; #:60; Refill: 0; SHARLENE = N; Record; Last Updated By: Minerva Hauser; 08/07/2019 10:53:56 AM Therems-H Oral Tablet; TAKE 1 TABLET DAILY; Therapy: 85Ejn9597 to Recorded Dispense: 0 Days ; #:30 Tabl et; Refill: 0; SHARLENE = N; Record; Last Updated By: Salma Montgomery; 05/31/2013 9:56:09 AM Vitals Vital Signs Recorded: 75Yut5263 10:03AM Skqwftkx266 Jshqrvohr23 Height4 ft 8 in Xxvnfy615 lb BMI Hwutybzxdo01.01 BSA Calculated1.67 Physical Exam General: None acute [...] 7.5. 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 Strings trimmed [...] Status: Hold For - Scheduling Requested for: [id number] Ordered Stat;For: Encounter for removal and reinsertion [...] Triage - ED Quick Triage: Normal 09-07-2019 [facility] Are You no H chely (85245) Have You Given In The Last 6 [...] obeys commands Best Verbal Response: (V5) oriented [place] Score: 15 Cough lasting greater than 3 [...] Arrival: stretcher Mode of Arrival: ambulance Agency: [facility] ([place] [employer]) Arrival From: assisted living facility ([facility]) Accompanied By: self Language: Spoken Language Preferred: Angolan Reading Language Preferre d: Angolan Research Engineer Requested: no energy control officer was requested MDRO: History of MDRO: no [...] Risk Screen - Preferred Language: Normal 2018 [facility] Preferred Language: [facility] Preferred Language for Discussing Health Care (patient/desig nee)Angolan ([id number]) Advanced Directives: Advance Directive/DNRno Advance Directive Information [...] 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, 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, Alcohol, Street Drugs Admission Risk Screen: Significant IndicatorsComplete CAGE: CAGE: Is this an injured patient at a Trauma Center ([facility]/[place]): no Electronic Signatures: Maria Elena Kramer (RN) (Signed 07-Sep-2019 19:29) Authored: Preferred Language, Advanced Directives, Family Vi olence Adult, Learning Assessment (Patient), Learning Assessment (Ot her Learner), Pressure Injury/TB/Substance, CAGE Last Updated: 07-Sep-2019 19:29 by Maria Elena Kramer (RN) red cell morphology on 2019-09-07 RBC morphology finding Nom NORMAL Normal [facility] ([facility]) (44232) Comment: Performed By: #### HH #### [facility] [address] [place] [address] provider note - ed v2 on 2019-09-07 Provider Note - Provider Note - ED v2: Normal 1 11-07-2018 [facility] ED v2 Chart Review: [facility] ED NOTES (23698) ED NOTES: [facility] of abdomi nal pain. She states [...] Description:epileptic seizure Description:anxiety Description:major depressive disorder Description:hypertension SCREW CUTTER: Is : no(1) Is : no(1) REVIEW [...] right upper quadrant Code:R10.11 Dispostion: discharged Type: medical terminologist care facility ATTESTATION CRITICAL CARE TIME Is this a critically ill patient: no Electronic Signatures: Nicko Cortez) (Signed 07-Sep-2019 21:48) Authored: Provider Note - ED v2 Last Updated: 07-Sep-2019 21:48 by Nicko Cortez) References: 1. Data Referenced From Triage - ED 07-Sep-2019 19:17 manual differential on 2019-09-07 % EOSINOPHIL 0.0 0.0 - 6.0 % Normal 09-07-2019 [facility] (97996) Comment: Performed By: #### HH #### [address] [address] % SEG NEUTROPHIL 65.0 40.0 - 80.0 % Normal 09-07-2019 [facility] (24048) Comment: Result Comment: Percent diff erential counts (%) should be interpreted in the context of the absolute cell counts (cells/L). Performed By: #### HH #### [address] [address] ANC 3.90 1.20 - 7.70 x10E9/L Normal 09-07-2019 [facility] (29785) Comment: Performed By: #### HH #### [address] [address] BAND NEUTROPHIL 0.06 0.00 - 0.70 x10E9/L Normal 09-07-2019 [facility] (58488) Comment: Performed By: #### HH #### [address] [address] BASOPHIL 0.00 0.00 - 0.10 x10E9/L Normal 09-07-2019 [facility] (35941) Comment: Performed By: #### HH #### [address] [address] EOSINOPHIL 0.00 0.00 - 0.70 x10E9/L Normal 09-07-2019 [facility] (67869) Comment: Performed By: #### HH #### [address] [address] LYMPHOCYTE 1.59 1.20 - 4.80 x10E9/L Normal 09-07-2019 [facility] (81839) Comment: Performed By: #### HH #### [address] [address] MONOCYTE 0.41 0.10 - 1.00 x10E9/L Normal 09-07-2019 [facility] (05851) Comment: Performed By: #### HH #### [address] [address] SEG NEUTROPHIL 3.84 1.20 - 7.00 x10E9/L Normal 09-07-2019 [facility] (89385) Comment: Performed By: #### HH #### [address] [address] Band form neutrophils/100 1.0 0.0 - 5.0 % Normal 08-19 [facility] 350 WBC (Bld) [place] ([address]) Comment: Ordering Provider: NICKO TORRES 98984 Performed By: #### HH #### [address] [address] Basophils/100 WBC (Bld) 0.0 0.0 - 2.0 % Normal 2018 [facility] [address] [place] ([address]77) Comment: Ordering Provider: NICKO TORRES 83479 Performed By: #### HH #### [address] [address] Lymphocytes/100 WBC (Bld) 27.0 % Normal 08-19 [facility] [address] [place] ([address]) Comment: Reference Range: 13.0 - 44.0 Ordering Provider: NICKO TORRES 70357 Performed By: #### HH #### [address] [address] Monocytes/100 WBC (Bld) 7.0 2.0 - 10.0 % Normal 09-07 [facility] [address] [place] ([address]170) Comment: Ordering Provider: NICKO TORRES 95616 Performed By: #### HH #### [address] [address] lipase, serum on 05-09-21 Lipase [Catalytic 40 9 - 82 U/L Normal 09-07-2019 [facility] 350 activity/Vol] [facility] (76812) Comment: Venipuncture immediately aft er or during the administration of Metamizole may lead to falsely low resu lts. Testing should be performed immediately prior to Metamizole dosing. G-umtdva-s-benzoquinone imine (metabolite of Acetaminophen) will generate erroneously low results in samples for patients that have taken toxic doses of acetaminophen. Ordering Provider: NICKO TORRES 24434 Result Comment: Venipuncture immediately after or during the administration of Metamizole may lead to falsely low results. Testing should be performed immediately prior to Metamizole dosing. L-zvshkh-f-benzoquinone imin e (metabolite of Acetaminophen) will generate erroneously lo w results in samples for patients that have taken toxic doses of acetaminophen. Performed By: #### HH #### [address] [address] comprehensive panel on 2019-09-07 Albumin [Mass/Vol] 4.1 3.4 - 5.0 g/dL Normal 09-07-2019 [facility] (88740) Comment: Performed By: #### HH #### [address] [address] ALT [Catalytic activity/Vol] 19 7 - 45 U/L Normal 1 11-07-2018 [facility] (00 000) Comment: Result Comment: Patients graciela ated with Sulfasalazine may generate falsely decreased results fo r ALT. Performed By: #### HH #### [address] [address] AST [Catalytic activity/Vol] 21 9 - 39 U/L Normal 1 11-07-2018 [facility] (00 000) Comment: Performed By: #### HH #### [address] [address] GFR- AM. 46 >60 mL/min/1.73m2 Abnormal 09-07-2019 [facility] (56412) Comment: Result Comment: CALCULATIONS OF ESTIMATED GFR ARE PERFORMED USING THE MDRD STUDY EQUATIO N FOR THE IDMS-TRACEABLE CREATININE ME THODS. CLIN CHEM 2007;53:766-72 Performed By: #### HH #### [address] [address] GFR-NON AM. 38 >60 mL/min/1.73m2 Abnormal 2018 [facility] (00 000) Comment: Performed By: #### HH #### [address] [address] HCO3 (Bld) [Moles/Vol] 32 21 - 32 mmol/L Normal 019 [facility] (85071) Comment: Performed By: #### HH #### [address] [address] ALP [Catalytic 55 33 - 110 U/L Normal 09-07-2019 [facility] 350 activity/Vol] [facility] est (10623) Comment: Ordering Provider: NICKO TORRES 70522 Performed By: #### HH #### [address] [address] Anion gap [Moles/Vol] 13 10 - 20 mmol/L Normal 09-07-20 19 [facility] [address] [place] ([address]) Comment: Ordering Provider: NICKO TORRES 66948 Performed By: #### HH #### [address] [address] Bilirubin [Mass/Vol] 0.3 0.0 - 1.2 mg/dL Normal 9 [facility] [address] [place] (31709) Comment: Ordering Provider: NICKO TORRES 41631 Performed By: #### HH #### [address] [address] Calcium [Mass/Vol] 9.7 8.6 - 10.3 mg/dL Normal 09-07-2019 [facility] [address] [place] (57717) Comment: Ordering Provider: NICKO TORRES 96186 Performed By: #### HH #### [address] [address] Chloride 97 98 - 107 mmol/L below low 09-07-2019 [facility] 350 [Moles/Vol] threshold [place] (72095) Comment: Ordering Provider: NICKO TORRES 61323 Performed By: #### HH #### [address] [address] Creatinine 1.47 mg/dL above high 09-07-2019 [facility] 350 [Mass/Vol] threshold [place] ([address]) Comment: Reference Range: 0.50 - 1.05 Ordering Provider: NICKO TORRES 31488 Performed By: #### HH #### [address] [address] Glucose [Mass/Vol] 94 74 - 99 mg/dL Normal 09-07-2019 [facility] [address] [place] ([address]) Comment: Ordering Provider: NICKO TORRES 83812 Performed By: #### HH #### [address] [address] Potassium 4.4 3.5 - 5.3 mmol/L Normal 09-07-2019 [facility] 350 [Moles/Vol] [place] (20204) Comment: Ordering Provider: NICKO TORRES 34621 Performed By: #### HH #### [address] [address] Protein 6.3 6.4 - 8.2 g/dL below low 09-07-2019 [facility] 350 [Mass/Vol] threshold [place] ([address]353) Comment: Ordering Provider: NICKO TORRES 28412 Performed By: #### HH #### [address] [address] Sodium [Moles/Vol] 138 136 - 145 mmol/L Normal 09-07-2019 [facility] [address] [place] ([address]) Comment: Ordering Provider: NICKO TORRES 40657 Performed By: #### HH #### [address] [address] Urea nitrogen 20 6 - 23 mg/dL Normal 09-07-2019 [facility] 350 [Mass/Vol] [place] ([address]) Comment: Ordering Provider: NICKO Sanchez Performed By: #### HH #### [address] [address] complete blood count + differential on 2019-09-07 Erythrocyte 15.2 See Below % above high 09-07-2019 [facility] 350 distribution width threshold [place] ([address]) (RBC) [Ratio] Comment: Reference Range: 11.5 - 14.5 Ordering Provider: NICKO Sanchez Hematocrit (Bld) [Volume 38.5 See Below % 09-[facility] [address] [place] fraction] (75267) Comment: Reference Range: 36.0 - 46.0 Ordering Provider: NICKO Sanchez Hemoglobin (Bld) 13.1 See Below g/dL 09-07-2019 [facility] [Mass/Vol] [place] ([address]) Comment: Reference Range: 12.0 - 16.0 Ordering Provider: NICKO Sanchez MCHC (RBC) [Mass/Vol] 34.0 See Below g/dL 09-07-20 [facility] [address] [place] (35860) Comment: Reference Range: 32.0 - 36.0 Ordering Provider: NICKO Sanchez MCV (RBC) [Entitic vol] 91 80 - 100 fL 2018 [facility] [address] [place] ([address]9906) Comment: Ordering Provider: NICKO Sanchez Platelets (Bld) 92 150 - 450 {x10E9/L} below low 09-07-2019 [facility] [#/Vol] threshold [place] ([address]) Comment: Ordering Provider: NICKO TORRES 23810 RBC (Bld) [#/Vol] 4.25 See Below {x10E12/L} 09-07-2019 [facility] [address] ([address]) Comment: Reference Range: 4.00 - 5.20 Ordering Provider: NICKO TORRES 51384 WBC (Bld) [#/Vol] 5.9 4.4 - 11.3 {x10E9/L} 09-07-2019 [facility] [address] ([address]) Comment: Ordering Provider: NICKO Sanchez SEE MANUAL DIFF [facility]-07-[facility] [address] ([address]) Comment: Ordering Provider: NICKO Guadarrama03 cbc and differential on 2019-09-07 DIFFERENTIAL SEE MANUAL DIFF Normal 09-07-2019 [facility] ([address]68) Comment: Performed By: #### HH #### [address] [address] Erythrocyte distribution 15.2 11.5 - 14.5 % High [facility] width (RBC) [Ratio] Health ([address]762) Comment: Performed By: #### HH #### [address] [address] Hematocrit (Bld) [Volume 38.5 36.0 - 46.0 % Normal [facility] fraction] [facility] (00 000) Comment: Performed By: #### HH #### [address] [address] Hemoglobin (Bld) 13.1 12.0 - 16.0 g/dL Normal 09-07-2019 [facility] [Mass/Vol] [facility] (0 0000) Comment: Performed By: #### HH #### [address] [address] MCHC (RBC) [Mass/Vol] 34.0 32.0 - 36.0 g/dL Normal 2018 [facility] (00 000) Comment: Performed By: #### HH #### [address] [address] MCV (RBC) [Entitic vol] 91 80 - 100 fL Normal 2018 [facility] (22339) Comment: Performed By: #### HH #### [address] [address] Platelets (Bld) [#/Vol] 92 150 - 450 x10E9/L Low 2018 [facility] ([address]15) Comment: Performed By: #### HH #### [address] [address] RBC (Bld) [#/Vol] 4.25 4.00 - 5.20 x10E12/L Normal 09-07-2019 [facility] (00 000) Comment: Performed By: #### HH #### [address] [address] WBC (Bld) [#/Vol] 5.9 4.4 - 11.3 x10E9/L Normal 09-07-2019 [facility] (40608) Comment: Performed By: #### HH #### [address] [address] No panel information on 2019-09-07 Albumin BCP dye 4.1 3.4 - 5.0 g/dL 09-07-2019 [facility] [address] [Mass/Vol] [address] ([address]) Comment: Ordering Provider: NICKO TORRES 69473 ALT With P-5'-P [Catalytic 19 7 - 45 U/L [facility] [address] activity/Vol] ([address]881 ) Comment: Patients treated with Sulfas alazine may generate falsely decreased results for ALT. Ordering Provider: NICKO TORRES 75088 AST With P-5'-P [Catalytic 21 9 - 39 U/L [facility] [address] activity/Vol] (68087 ) Comment: Ordering Provider: NICKO TORRES 05304 Basophils (Bld) 0.00 See Below {x10E9/L} 09-07-2019 [facility] [#/Vol] [address] ([address]) Comment: Reference Range: 0.00 - 0.10 Ordering Provider: NICKO TORRES 63734 CO2 [Moles/Vol] 32 21 - 32 mmol/L 09-07-2019 [facility] ([address]) Comment: Ordering Provider: NICKO Sanchez Eosinophils (Bld) 0.00 See Below {x10E9/L} 09-07-2019 [facility] 350 [#/Vol] [address] ([facility]) Comment: Reference Range: 0.00 - 0.70 Ordering Provider: NICKO Sanchez Eosinophils/100 WBC (Bld) 0.0 0.0 - 6.0 % 08-19 [facility] ([facility]) Comment: Ordering Provider: NICKO Sanchez Lymphocytes (Bld) 1.59 See Below {x10E9/L} 09-07-2019 [place] [address] [#/Vol] [address] ([facility]) Comment: Reference Range: 1.20 - 4.80 Ordering Provider: NICKO Sanchez Monocytes (Bld) 0.41 See Below {x10E9/L} 09-07-2019 [place] [address] [#/Vol] [address] ([address]) Comment: Reference Range: 0.10 - 1.00 Ordering Provider: NICKO Sanchez Segmented neutrophils/100 65.0 See Below % 08-19 [place] [address] WBC (Bld) [address] ([address]) Comment: Reference Range: 40.0 - 80.0 Percent differential counts (%) should be interpreted in the context o f the absolute cell counts (cells/L). Ordering Provider: NICKO TORRES 85960 3.84 See Below {x10E9/L} 09-07-2019 [facility] [address] ([facility]) Comment: Reference Range: 1.20 - 7.00 Ordering Provider: NICKO Sanchez 38 >60 {mL/min/1.73m2} Abnormal 09-07-2019 [facility] [address] ([address]) Comment: Ordering Provider: NICKO Sanchez 0.06 See Below {x10E9/L} 09-07-2019 [facility] [address] ([address]) Comment: Reference Range: 0.00 - 0.70 Ordering Provider: NICKO Sanchez NORMAL 09-07-2019 [place] [address] [address] ([address]) Comment: Ordering Provider: NICKO Sanchez 3.90 See Below {x10E9/L} 09-07-2019 [place] [address] [address] ([address]) Comment: Reference Range: 1.20 - 7.70 Ordering Provider: NICKO Sanchez 46 >60 {mL/min/1.73m2} Abnormal 09-07-2019 [facility] [address] ([address]) Comment: CALCULATIONS OF ESTIMATED GF R ARE PERFORMED USING THE MDRD STUDY EQUATION FOR THE IDMS-TRACEABLE CREAT ININE METHODS. CLIN CHEM 2007;53:766-72 Ordering Provider: NICKO Sanchez knee cmplt, 4 or more views on 2019-08-21 KNEE CMPLT, 4 OR Normal [address] [place] [address] MORE VIEWS [facility] STUDY: KNEE; COMPLT, 4 OR MORE VIEWS;Left; 08/20/2019 10:00 pm INDICATION: fall. COMPARISON: None. ACCESSION NUMBER(S): [id number] ORDERING CLINICIAN: TENISHA LANE FINDINGS: Four views left knee. No acute fracture or malalignment. Bones appear normally min eralized. No significant degenerative changes. No knee effusion. Soft tissues are within normal limits. IMPRESSION: Normal left knee radiography. Electronically signed by: HEIDY JARA MD No panel information on 2019-08-21 XR Knee 4 Interpreted by: HEIDY Del Rio 2018 [facility] [address] JARA08/20/[address] ([address]) 22:23MRN: [id number] Name: [facility] REEMA STUDY:KNEE; COMPLT, 4 OR MORE VIEWS;Left; 08/20/2019 10:00 pm INDICATION:fall. COMPARISON:None. ORDERING CLINICIAN:TENISHA LANE FINDINGS:Four views left knee. No acute fracture or malalignment. Bones appear normally mineralized.No significant degenerative changes. No knee effusion. Soft tissuesare within normal limits. IMPRESSION:Normal left knee radiography. Electronically signed by: HEIDY JARA 08/20/19 22:23 Comment: Ordering Provider: TENISHA Mckoy [address] triage - ed on 2018 Triage - ED Quick Triage: Normal 08-20-2019 [facility] Are You no H ealth (93760) Have You Given In The Last 6 [...] BMI (kg/m2): 39.266 Calculated BSA (m2) 1.77 [place] Coma Scale: Best Eye Response: (E4) spontaneous [...] assisted living facility Accompanied By: self and can filler Language: Spoken Language Preferred: Angolan Reading Language Preferre d: Angolan PRIMARY ASSESSMENT ABCD Normal Findings: airway open and patent PAST MEDICAL HISTORY Immunization History: Last Known Tetanus Immunization: Less than 5 years TRAVEL HISTORY Travel Exposure History: NO travel to [facility] in the past 30 days Past [...] Risk Screen - Preferred Language: Normal 2018 [facility] Preferred Language: [facility] Preferred Language for Discussing Health Care (patient/desjose rodriguez)Angolan ([id number]) Advanced Directives: Advance Directive/DNRno Family Violence Adult: [...] 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, 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, Alcohol, Street Drugs Admission Risk Screen: Significant IndicatorsComplete CAGE: CAGE: Is this an injured patient at a Trauma Center ([facility]/[place]): no Electronic Signatures: Megan Linton (RN) (Signed 20-Aug-2019 21:45) Authored: Preferred Language, Advanced Directives, Family Vi olence Adult, Learning Assessment (Patient), Learning Assessment (Ot her Learner), Pressure Injury/TB/Substance, CAGE Last Updated: 20-Aug-2019 21:45 by Megan Linton (RN) provider note - ed v2 on 2019-08-20 Provider Note - Provider Note - ED v2: Normal 1 10-20-2018 [facility] ED v2 Chart Review: [facility] ED NOTES (15143) ED NOTES: HPI: Patient is a resident of a [facility] and just prior to arrival she had [...] and oriented x4 , GCS 15 , tube splicer II-XII grossly intact. Sensation and motor function [...] Description:epileptic seizure Description:anxiety Description:major depressive disorder Description:hypertension SCREW CUTTER: Is : no(1) Is : no(1) RESULTS/VITAL [...] SIGNS: T PRBP SpO2O2(LPM) %FiO2 Method 20-Aug-2019 21:02:[id number]/75 95 room air, no respira tory support [...] no acute distress. [facility]. The CAT scan of your [...] patient: no Electronic Signatures: Tenisha Lane I (COORDINATOR OF REHABILITATION SERVICES-MACHINE PAN GREASER) (Signed 20-Aug-2019 22:33) Authored: Provider Note - ED v2 Last Updated: 20-Aug-2019 22:[address] I (COORDINATOR OF REHABILITATION SERVICES-MACHINE PAN GREASER) References: 1. Data Referenced From Triage - ED 20-Aug-2019 21:02 ct head wo contrast on 2019-08-20 CT HEAD WO Normal 08-20-2019 [facility] CONTRAST [facility]: [facility] ([id number]) STUDY: CT HEAD WO CONTRAST; CT C-SPINE WO CONTRAST;; 08/20/2019 9:58 pm INDICATION: fall. COMPARISON: 03/18/[address] cervical spine from 03/16/2019. ACCESSION NUMBER(S): [id number]; [id number] ORDERING CLINICIAN: TENISHA LANE TECHNIQUE: Noncontrast CT [...] 08-20-[facility] ([address]) STUDY: CT HEAD WO CONTRAST; CT C-SPINE WO CONTRAST;; 08/20/2019 9:58 pm INDICATION: fall. COMPARISON: 03/18/[address] cervical spine from 03/16/2019. ACCESSION NUMBER(S): [id number]; [id number] ORDERING CLINICIAN: TENISHA LANE TECHNIQUE: Noncontrast CT [...] Head Interpreted by: HEIDY Del Rio 2018 [address]08/20/[address] ([address]) contrast 22:22MRN: [id number] Name: REEMA MOTTA STUDY:CT HEAD WO CONTRAST; CT C-SPINE WO CONTRAST;; 08/20/2019 9:58 pm INDICATION:fall. COMPARISON:03/18/[address] cervical spine from 03/16/2019. [id number] ORDERING CLINICIAN:TENISHA LANE TECHNIQUE:Noncontrast CT exams of [...] 08/20/19 22:22 Comment: Ordering Provider: TENISHA Mckoy [address] Interpreted by: HEIDY Del Rio 08-20-[address]08/20/19 22:22MRN: Jaspal [id number]) [id number] Name: REEMA MOTTA STUDY:CT HEAD WO CONTRAST; CT C-SPINE WO CONTRAST;; 08/20/2019 9:58 pm INDICATION:fall. COMPARISON:03/18/[address] cervical spine from 03/16/2019. [id number] ORDERING CLINICIAN:TENISHA LANE TECHNIQUE:Noncontrast CT exams of [...] 08/20/19 22:22 Comment: Ordering Provider: TENISHA Mckoy [address] bullion weigher - office visit on 2019-08-07 SCREW CUTTER - Chief Complaint Normal 08-07-2019 [facility] Office Visit ([id number]) PT HERE TODAY FOR US RESULTS History [...] MG TOT AL) BY MOUTH DAILY; Therapy: [id number] to Recorded Rx By: MENDY; Dispense: 30 D ays ; #:30; Refill: 0; SHARLENE = N; Record; Last Updated By: Minerva Hauser; 08/07/2019 10:53:56 AM Keppra 750 MG Oral Tablet; TAKE 1 TABLET BY MOUTH TWICE A DA Y; Therapy: [id number] to Recorded Rx By: KEYSHA; Dispense: 30 [...] MOUTH FOUR TIME S A DAY; Therapy: [id number] to Recorded Rx By: KEYSHA; Dispense: 30 [...] MOUTH EVERY DAY AT SUPPER TIME; Therapy: [id number] to Recorded Rx By: KEYSHA; Dispense: 30 D ays ; #:30; Refill: 0; SHARLENE = N; Record; Last Updated By: Minerva Hauser; 08/07/2019 10:53:56 AM Potassium Chloride ER 10 MEQ Oral Capsule Extend ed Release; TAKE 1 CAPSULE BY MOUTH TWICE A DAY; Therapy: [id number] to Recorded Rx By: MENDY; Dispense: 30 D ays ; #:60; Refill: 0; SHARLENE = N; Record; Last Updated By: Minerva Hauser; 08/07/2019 10:53:56 AM Vitals Vital Signs Recorded: 07Aug2019 11:01AM Wkhgspqu281 Ljetucwep22 Height4 ft 7.12 in Flveow544 lb 4.83 oz BMI Mutwadonay34.11 BSA Calculated1.65 Physical Exam General: None acute distress Eye: Intraocular movements are intact HEENT: Normocephalic Respiratory: Respirations are nonlabored Gastrointestinal: Nondistended Musculoskeletal: Normal range of motion Neurologic: Alert and orientedx3 Psychiatric: Cooperative appropriate mood and affect. Results/Data Ultrasound Pelvis Transabdom inal With Rmvtcrbphpds02Uik6635 10:44Anel Livingston Test NameResultFlagReference Ultrasound Pelvis Transabdominal With Transvaginal(Report) Interpreted by: TIFFANIE PARK 08/03/19 22:49 Patient Name: REEMA MOTTA STUDY: US PELVIS TRANSABDOMINAL WITH TRANSVAGINAL; 08/03/2019 10:44 am INDICATION: PELVIC PAIN. COMPAR BRIGIDA: None. ACCESSION NUMBER (S): [id number] ORDERING CLINICIAN: ANEL MORGAN TECHNIQUE: Transabdominal and [...] 36.5 36.0 - 46.0 % Normal [facility]] Health (00 000) Comment: Performed By: #### HH #### [address] [address] Hemoglobin (Bld) 12.3 12.0 - 16.0 g/dL Normal 08-04-2019 [facility] [Mass/Vol] Health (0 0000) Comment: Performed By: #### HH #### [address] [address] us pelvis transabdominal with transvagin al on 2019-08-03 US PELVIS Normal 08-03-2019 [facility] TRANSABDOMINAL WITH [facility]: [facility] TRANSVAGINAL ([id number]) STUDY: US PELVIS TRANSABDOMINAL WITH TRANSVAGINAL; 08/03/2019 10:44 am INDICATION: PELVIC PAIN. COMPARISON: None. ACCESSION NUMBER(S): [id number] ORDERING CLINICIAN: ANEL MORGAN TECHNIQUE: Transabdominal and [...] 2019-08-03 Interpreted by: TIFFANIE NAVARRO Normal 08-03-2019 [address]OBRIAL1 22:49MRN: Jaspal ([id number]) [id number] Name: REEMA MOTTA STUDY:US PELVIS TRANSABDOMINAL WITH [...] PCR. Not Detected Not Detected Normal 2018 [facility] (41944) Comment: Result Comment: Xpert CT/NG Assay performance has not been evaluated in patients less than 14 years of age. Performed By: #### [id number] #### MARCUS RemHemo [employer] [place] [address] Gonorrhoeae by PCR Not Detected Not Detected Normal 07-19 [facility] (14677) Comment: Result Comment: Xpert CT/NG Assay performance has not been evaluated in patients less than 14 years of age. Performed By: #### [id number] #### MARCUS RemHemo [employer] [place] [address] ct abdomen/pelvis w/ contrast on 2019-07-05 CT Abdomen/Pelvis w/ Exam Date/Time: Normal [facility] Contrast 07/05/2019 13:33 EDT [facility] Reason for Exam: s tem ([id number]) ABDOMINAL PAIN AND TENDERNESS Report STUDY: CT Abdomen/Pelvis w/ Contrast; 07/05/2019 1:33 pm INDICATION: ABDOMINAL PAIN AND TENDERNESS. COMPARISON: 12/02/2018 ACCESSION NUMBER(S): [id number] ORDERING CLINICIAN: Holden Velasco TECHNIQUE: Contiguous axial [...] pm Signed by: Andrey Sunshine MD Technologist: NABEEL, magnesium on 03-25 Magnesium [Mass/Vol] 2.0 1.6-2.4 mg/dL Normal [address] [facility] () Comment: Performed By: #### [id number] #### MARCUS RemHemo [address] [place] [address] egfr on 2019-03-25 GFR/1.73 sq M predicted >60 mL/min/{1.73_m2} Normal 03-25-2019 [facility] among non-blacks [facility] (33533) (S/P/Bld) [Vol rate/Area] Comment: Order Comment: Order Added b y Discern Expert. Performed By: #### [id number] #### MARCUS RemHemo [address] [place] [id number] GFR/1.73 sq M predicted 50 mL/min/1.73 m2 Normal 0 03-25-2019 [facility] among non-blacks [facility] (58606) (S/P/Bld) [Vol rate/Area] Comment: Order Comment: Order Added b y Discern Expert. Performed By: #### [id number] #### MARCUS RemHemo [address] [place] [address] bmp on 2019-03-25 Anion gap [Moles/Vol] 10 10-20 mEq/L Normal 03-25-[address] [facility] () Comment: Performed By: #### [id number] #### MARCUS RemHemo [address] [place] [address] Calcium [Mass/Vol] 8.7 8.6-10.3 mg/dL Normal 03-25-[address] [facility] () Comment: Performed By: #### [id number] #### MARCUS RemHemo [address] [place] [address] Chloride [Moles/Vol] 108 98-107 mEq/L High [address] [facility] () Comment: Performed By: #### [id number] #### MARCUS RemHemo [address] [place] [address] CO2 [Moles/Vol] 25.0 21.0-32.0 mEq/L Normal 03-25-[address] [facility] () Comment: Performed By: #### [id number] #### MARCUS WilcoxHemo [address] [place] [address] Creatinine [Mass/Vol] 1.2 0.5-1.1 mg/dL High 03-25-[address] [facility] () Comment: Performed By: #### [id number] #### MARCUS RemHemo [employer] [place] [address] Glucose [Mass/Vol] 97 70-99 mg/dL Normal 03-25-[address] [facility] (44764) Comment: Performed By: #### [id number] #### MARCUS RemHemo [employer] [place] [address] Potassium [Moles/Vol] 4.5 3.5-5.3 mEq/L Normal 03-25-[address] [facility] () Comment: Performed By: #### [id number] #### MARCUS RemHemo [employer] [place] [address] Sodium [Moles/Vol] 138 136-145 mEq/L Normal 03-25-[address] [facility] () Comment: Performed By: #### [id number] #### MARCUS RemHemo [employer] [place] [address] Urea nitrogen [Mass/Vol] 14 6-23 mg/dL Normal 03-[address] [facility] ( 000) Comment: Performed By: #### [id number] #### MARCUS RemHemo [employer] [place] [address] Urea nitrogen/Creatinine 11.7 5.4-30.0 ratio Normal 03-25 [facility] [Mass ratio] [facility] (49374) Comment: Performed By: #### [id number] #### MARCUS RemHemo [employer] [place] [address] magnesium on 6-07 Magnesium [Mass/Vol] 2.1 1.6-2.4 mg/dL Normal 9 [facility] (00 000) Comment: Performed By: #### [id number] #### MARCUS WilcoxHemo [address] [place] [address] egfr on 2019-03-24 GFR/1.73 sq M predicted 55 mL/min/1.73 m2 Normal 0 03-24-2019 [facility] among non-blacks [facility] ([address]8412) (S/P/Bld) [Vol rate/Area] Comment: Order Comment: Order Added b y Discern Expert. Performed By: #### [id number] #### MARCUS JeriHemo [employer] [place] [address] GFR/1.73 sq M predicted >60 mL/min/{1.73_m2} Normal 03-24-2019 [facility] among non-blacks [facility] ([address]4834) (S/P/Bld) [Vol rate/Area] Comment: Order Comment: Order Added b y Discern Expert. Performed By: #### [id number] #### MARCUS JeriHemo [employer] [place] [address] cbc w/ auto diff on 2019-03-24 Erythrocyte distribution 13.4 11.5-14.5 % Normal 03-24 [facility] width (RBC) [Ratio] Health System (35641) Comment: Performed By: #### [id number] #### MARCUS JeriHemo [employer] [place] [address] Hematocrit (Bld) [Volume 36.3 36.0-48.0 % Normal 03-24 [facility] fraction] Health Sys tem (97161) Comment: Performed By: #### [id number] #### MARCUS JeriHemo [address] [place] [address] Hemoglobin (Bld) 12.3 12.0-16.0 G/DL Normal 03-24-2019 [facility] [Mass/Vol] Health Sy stem (83525) Comment: Performed By: #### [id number] #### MARCUS JeriHemo [address] [place] [address] MCH (RBC) [Entitic mass] 30.4 27.0-31.0 pg Normal 03-[address] [facility] (00 000) Comment: Performed By: #### [id number] #### MARCUS WilcoxHemo [employer] [place] [address] MCHC (RBC) [Mass/Vol] 33.7 33.0-37.0 G/DL Normal 03-24-[address] [facility] (00 ) Comment: Performed By: #### [id number] #### MARCUS WilcoxHemo [employer] [place] [address] MCV (RBC) [Entitic vol] 90.1 78.0-100.0 fL Normal 03-24 [facility] (93598) Comment: Performed By: #### [id number] #### MARCUS Kenyono [employer] [place] [address] Platelet mean volume 8.3 7.4-11.0 fL Normal [facility] (Bld) [Entitic vol] System (30357) Comment: Performed By: #### [id number] #### MARCUS JeriHemo [employer] [place] [address] Platelets (Bld) [#/Vol] 101 130-400 E3/mcL Low [address] [facility] () Comment: Performed By: #### [id number] #### MARCUS Kenyono [employer] [place] [address] RBC (Bld) [#/Vol] 4.04 3.90-5.40 E6/mcL Normal 03-24-2019 [facility] () Comment: Performed By: #### [id number] #### MARCUS WilcoxHemo [employer] [place] [address] WBC (Bld) [#/Vol] 3.9 3.6-11.0 E3/mcL Normal 03-24-2019 [facility] () Comment: Performed By: #### [id number] #### MARCUS WilcoxHemo [employer] [place] [address] bmp on 2019-03-24 Anion gap [Moles/Vol] 9 10-20 mEq/L Low 03-24-[address] [facility] (10019) Comment: Performed By: #### [id number] #### MARCUS RemHemo [address] [place] [address] Calcium [Mass/Vol] 8.2 8.6-10.3 mg/dL Low 03-24-[address] [facility] (35522) Comment: Performed By: #### [id number] #### MARCUS RemHemo [address] [place] [address] Chloride [Moles/Vol] 110 98-107 mEq/L High [address] [facility] (00 000) Comment: Performed By: #### [id number] #### MARCUS RemHemo [address] [place] [address] CO2 [Moles/Vol] 23.0 21.0-32.0 mEq/L Normal 03-24-[address] [facility] (00 000) Comment: Performed By: #### [id number] #### MARCUS RemHemo [address] [place] [address] Creatinine [Mass/Vol] 1.1 0.5-1.1 mg/dL Normal 03-24-[address] [facility] (00 000) Comment: Performed By: #### [id number] #### MARCUS RemHemo [address] [place] [address] Glucose [Mass/Vol] 92 70-99 mg/dL Normal 03-24-[address] [facility] (08197) Comment: Performed By: #### [id number] #### MARCUS RemHemo [address] [place] [address] Potassium [Moles/Vol] 4.1 3.5-5.3 mEq/L Normal 03-24-[address] [facility] (00 000) Comment: Performed By: #### [id number] #### MARCUS RemHemo [address] [place] [address] Sodium [Moles/Vol] 138 136-145 mEq/L Normal 03-24-[address] [facility] (00 000) Comment: Performed By: #### [id number] #### MARCUS RemHemo [address] [place] [address] Urea nitrogen [Mass/Vol] 11 6-23 mg/dL Normal 03-[address] [facility] (00 000) Comment: Performed By: #### [id number] #### AMRCUSShawn Kenyon[address] [address] Urea nitrogen/Creatinine 10.0 5.4-30.0 ratio Normal 03-24 [facility] [Mass ratio] [facility] ([address]144) Comment: Performed By: #### [id number] #### MARCUS Jeri[address] [address] auto diff on 03-24 Basophils (Bld) [#/Vol] 0.0 0.0-0.2 E3/mcL Normal 2018 [facility] tem (28066) Comment: Order Comment: Order Added b y Discern Expert. Performed By: #### [id number] #### MARCUS Wilcox[address] [address] Basophils/100 WBC (Bld) 0.1 0.0-2.0 % Normal [address] [facility] (00 000) Comment: Order Comment: Order Added b y Discern Expert. Performed By: #### [id number] #### [facility] Jeri[address] [address] Eos Absolute 0.1 0.0-0.7 E3/mcL Normal 03-24-2019 [facility] (74929) Comment: Order Comment: Order Added b y Discern Expert. Performed By: #### [id number] #### [facility] Kostas[address] [address] Eosinophils/100 WBC (Bld) 1.7 0.0-11.0 % Normal [facility] (00 000) Comment: Order Comment: Order Added b y Discern Expert. Performed By: #### [id number] #### [address] [address] Lymphocytes (Bld) [#/Vol] 1.3 1.2-3.4 E3/mcL Normal [facility] tem ([address]) Comment: Order Comment: Order Added b y Discern Expert. Performed By: #### [id number] #### [address] [place] [address] Lymphocytes/100 WBC (Bld) 33.8 20.0-55.0 % Normal [facility] (03147) Comment: Order Comment: Order Added erma Aldana Expert. Performed By: #### [id number] #### MARCUS Kenyono [address] [place] [address] [place] Absolute 0.4 0.0-0.7 E3/mcL Normal 03-24-2019 [facility] (96455) Comment: Order Comment: Order Added erma y Discern Expert. Performed By: #### [id number] #### [facility] [address] [place] [address] Monocytes/100 WBC (Bld) 11.3 0.0-10.0 % High [address] [facility] (00 000) Comment: Order Comment: Order Added erma Aldana Expert. Performed By: #### [id number] #### MARCUS [address] [address] Neutro Absolute 2.1 1.4-6.5 E3/mcL Normal 03-24-[address] [facility] (11511) Comment: Order Comment: Order Added erma Aldana Expert. Performed By: #### [id number] #### MARCUSShawn Kenyon[address] [address] Neutro Auto 53.1 37.0-75.0 % Normal 03-24-2019 [facility] (76760) Comment: Order Comment: Order Added erma Aldana Expert. Performed By: #### [id number] #### [facility] [address] [place] [address] zzplt morph on 2018 Platelet morphology finding NORMAL Normal [facility] (d) System (00 000) Comment: Performed By: #### [id number] #### [facility] [address] [place] [address] Platelets (Bld) [#/Vol] DECREASED Normal [address] [facility] (00 000) Comment: Performed By: #### [id number] #### [facility] [address] [id number] xr shoulder complete left on 2019-03-23 XR Shoulder Exam Date/Time: Normal 03-23-2019 S [facility] Complete Left 03/23/2019 01:05 EDT Health System Reason for Exam: (00 000) Fall Report STUDY: XR Shoulder Complete Left;; 03/23/2019 1:05 am INDICATION: Fall. COMPARISON: None. ACCESSION NUMBER(S): [id number] ORDERING CLINICIAN: Narcisa Lo FINDINGS: Five views [...] TSH Qn 2.75 0.30-5.60 mcIU/mL Normal 03-23-[address] [facility] (29244) Comment: Performed By: #### [id number] #### MARCUS Luong [address] [place] [address] troponin-i on 03-23 Troponin I.cardiac 0.01 0.00-0.03 ng/mL Normal 03-23-2019 [facility] [Mass/Vol] [facility] Sy stem (95246) Comment: Order Comment: Order Added b y Katya Expert. Performed By: #### [id number] #### MARCUS Luong [employer] [place] [address] manual diff on 2018 Anisocytosis Ql (Bld) 1+ Normal 03-23-[address] [facility] (33951) Comment: Order Comment: Order Added b y Discern Expert. Performed By: #### [id number] #### MARCUS Luong [employer] [id number] Basophil Man 0 0-1 % Normal 03-23-2019 [facility] (86251) Comment: Order Comment: Order Added b y Katya Expert. Performed By: #### [id number] #### MARCUS Kenyono [address] [place] [address] Eosinophils/100 WBC (Bld) 0 0-5 % Normal [facility] (73096) Comment: Order Comment: Order Added b y Discern Expert. Performed By: #### [id number] #### MARCUS Kenyono [address] [place] [address] Lymphocytes/100 WBC (Bld) 54 14-48 % High [facility] (27926) Comment: Order Comment: Order Added b y Discern Expert. Performed By: #### [id number] #### MARCUS Kenyono [address] [place] [address] Monocyte Man 4 1-11 % Normal 03-23-2019 [facility] (39747) Comment: Order Comment: Order Added b y Discern Expert. Performed By: #### [id number] #### MARCUS Kenyono [address] [place] [address] RBC morphology finding SEE MORPHOLOGY Normal [facility] (57999) Comment: Order Comment: Order Added b y Discern Expert. Performed By: #### [id number] #### MARCUS Kenyono [address] [place] [address] Segs Man 42 37-75 % Normal 03-23-[address] [facility] (92490) Comment: Order Comment: Order Added b y Discern Expert. Performed By: #### [id number] #### MARCUSShawn Kenyono [employer] [place] [address] magnesium on 03-23 Magnesium [Mass/Vol] 2.9 1.6-2.4 mg/dL High [address] [facility] (00 000) Comment: Performed By: #### [id number] #### MARCUSShawn Kenyono [employer] [place] [address] egfr on 2019-03-23 GFR/1.73 sq M predicted >60 mL/min/{1.73_m2} Normal 03-23-2019 [facility] among non-blacks [facility] (95601) (S/P/Bld) [Vol rate/Area] Comment: Order Comment: Order Added erma Aldana Expert. Performed By: #### [id number] #### MARCUS WilcoxHemo [address] [place] [address] GFR/1.73 sq M predicted 56 mL/min/1.73 m2 Normal 0 03-23-2019 [facility] among non-blacks [facility] (68136) (S/P/Bld) [Vol rate/Area] Comment: Order Comment: Order Added erma Aldana Expert. Performed By: #### [id number] #### MARCUS JeriHemo [employer] [place] [address] cbc w/ auto diff on 2019-03-23 Erythrocyte distribution 13.6 11.5-14.5 % Normal 03-23 [facility] width (RBC) [Ratio] Health System (98834) Comment: Performed By: #### [id number] #### [facility] [place] [address] Hematocrit (Bld) [Volume 36.9 36.0-48.0 % Normal 03-23 [facility] fraction] Health Sys tem (53117) Comment: Performed By: #### [id number] #### MARCUS WilcoxHemo [employer] [place] [address] Hemoglobin (Bld) 12.2 12.0-16.0 G/DL Normal 03-23-2019 [facility] [Mass/Vol] Health Sy stem (57851) Comment: Performed By: #### [id number] #### MARCUSShawn WilcoxHemo [employer] [place] [address] MCH (RBC) [Entitic mass] 30.1 27.0-31.0 pg Normal 03-[address] [facility] (00 000) Comment: Performed By: #### [id number] #### [facility]US [facility] [employer] [place] [address] MCHC (RBC) [Mass/Vol] 33.1 33.0-37.0 G/DL Normal 03-23-[address] [facility] (00 000) Comment: Performed By: #### [id number] #### MARCUS [facility] [employer] [place] [address] MCV (RBC) [Entitic vol] 91.0 78.0-100.0 fL Normal 03-23 [facility] Sys [facility] (03318) Comment: Performed By: #### [id number] #### MARCUS JeriHemo [address] [place] [address] Platelet mean volume 8.3 7.4-11.0 fL Normal 9 [facility] (Bld) [Entitic vol] System (63866) Comment: Performed By: #### [id number] #### MARCUSShawn WilcoxHemo [employer] [place] [address] Platelets (Bld) [#/Vol] 97 130-400 E3/mcL Low [address] [facility] (00 000) Comment: Performed By: #### [id number] #### MARCUS JeriHemo [employer] [place] [address] RBC (Bld) [#/Vol] 4.05 3.90-5.40 E6/mcL Normal 03-23-2019 [facility] (00 000) Comment: Performed By: #### [id number] #### MARCUSShawn WilcoxHemo [employer] [place] [address] WBC (Bld) [#/Vol] 3.0 3.6-11.0 E3/mcL Low 03-23-2019 [facility] (64333) Comment: Performed By: #### [id number] #### MARCUS JeriHemo [address] [place] [address] bmp on 2019-03-23 Anion gap [Moles/Vol] 8 10-20 mEq/L Low 03-23-[address] [facility] (31118) Comment: Performed By: #### [id number] #### MARCUS RemHemo [address] [place] [address] Calcium [Mass/Vol] 7.8 8.6-10.3 mg/dL Low 03-23-[address] [facility] (97924) Comment: Performed By: #### [id number] #### MARCUS RemHemo [address] [place] [address] Chloride [Moles/Vol] 111 98-107 mEq/L High [address] [facility] () Comment: Performed By: #### [id number] #### MARCUS RemHemo [address] [place] [address] CO2 [Moles/Vol] 22.0 21.0-32.0 mEq/L Normal 03-23-[address] [facility] (00 ) Comment: Performed By: #### [id number] #### MARCUS RemHemo [address] [place] [address] Creatinine [Mass/Vol] 1.1 0.5-1.1 mg/dL Normal 03-23-[address] [facility] (00 000) Comment: Performed By: #### [id number] #### MARCUS RemHemo [employer] [place] [address] Glucose [Mass/Vol] 102 70-99 mg/dL High 03-23-[address] [facility] (71805) Comment: Performed By: #### [id number] #### MARCUS RemHemo [address] [place] [address] Potassium [Moles/Vol] 3.5 3.5-5.3 mEq/L Normal 03-23-[address] [facility] (00 000) Comment: Performed By: #### [id number] #### MARCUS WilcoxHemo [employer] [place] [address] Sodium [Moles/Vol] 138 136-145 mEq/L Normal 03-23-[address] [facility] (00 000) Comment: Performed By: #### [id number] #### MARCUS RemHemo [address] [place] [address] Urea nitrogen [Mass/Vol] 9 6-23 mg/dL Normal 03-[address] [facility] (00 000) Comment: Performed By: #### [id number] #### MARCUS RemHemo [address] [place] [address] Urea nitrogen/Creatinine 8.2 5.4-30.0 ratio Normal 03-23 [facility] [Mass ratio] [facility] (17213) Comment: Performed By: #### [id number] #### MARCUS RemHemo [address] [place] [address] .manual abs on 2019 -06-06 Basophil Abs Man 0.0 0.0-0.2 10x3/ Normal 03-23-2019 [facility] (87388) Comment: Order Comment: Order Added b y Discern Expert. Performed By: #### [id number] #### MARCUS WilcoxHemo [address] [place] [address] Eos Abs Man 0.0 0.0-0.5 10x3/ Normal 03-23-2019 [facility] (79160) Comment: Order Comment: Order Added b y Discern Expert. Performed By: #### [id number] #### MARCUS RemHemo [address] [place] [address] Lymph Abs Man 1.6 1.2-3.4 10x3/ Normal 03-23-2019 [facility] (11266) Comment: Order Comment: Order Added b y Discern Expert. Performed By: #### [id number] #### MARCUS JeriHemo [address] [place] [address] Mclennan Abs Man 0.1 0.0-0.7 10x3/ Normal 03-23-2019 [facility] (34156) Comment: Order Comment: Order Added b y Discern Expert. Performed By: #### [id number] #### MARCUS WilcoxHemo [address] [place] [address] Segs Abs Man 1.3 1.4-6.5 10x3/ Low 03-23-2019 [facility] (69814) Comment: Order Comment: Order Added b y Discern Expert. Performed By: #### [id number] #### MARCUSShawn WilcoxHemo [employer] [place] [address] xr chest ap portable on 2019-03-22 XR Chest AP Exam Date/Time: Normal 03-22-2019 [facility] Portable 03/22/2019 20:26 EDT H ealt System Reason for Exam: (00 000) Chest pain Report STUDY: XR Chest AP Portable; 03/22/2019 8:26 pm INDICATION: Chest pain. COMPARISON: 12/21/2018 ACCESSION NUMBER(S): [id number] ORDERING CLINICIAN: Xuan Garcia FINDINGS: Single portable [...] pm Signed by: Lacy Alvarez MD Technologist: [facility] troponin-i on 03-22 Troponin I.cardiac 0.01 0.00-0.03 ng/mL Normal 03-22-2019 [facility] [Mass/Vol] [facility] (68657) Comment: Performed By: #### [id number] #### MARCUS WilcoxHemo [employer] [id number] magnesium on 03-22 Magnesium [Mass/Vol] 1.6 1.6-2.4 mg/dL Normal [address] [facility] (00 000) Comment: Performed By: #### [id number] #### MARCUS RemHemo [address] [place] [address] egfr on 2019-03-22 GFR/1.73 sq M predicted >60 mL/min/{1.73_m2} Normal 03-22-2019 [facility] among non-blacks [facility] (80136) (S/P/Bld) [Vol rate/Area] Comment: Order Comment: Order Added b y Discern Expert. Performed By: #### [id number] #### MARCUS RemHemo [address] [place] [address] GFR/1.73 sq M predicted 52 mL/min/1.73 m2 Normal 0 03-22-2019 [facility] among non-blacks [facility] (61160) (S/P/Bld) [Vol rate/Area] Comment: Order Comment: Order Added b y Discern Expert. Performed By: #### [id number] #### MARCUS RemHemo [address] [place] [address] cbc w/ auto diff on 2019-03-22 Erythrocyte distribution 13.5 11.5-14.5 % Normal 03-22 [facility] width (RBC) [Ratio] Health System (87690) Comment: Performed By: #### [id number] #### MARCUSShawn WilcoxHemo [employer] [place] [address] Hematocrit (Bld) [Volume 37.5 36.0-48.0 % Normal 03-22 [facility] (43507) Comment: Performed By: #### [id number] #### MARCUSShawn WilcoxHemo [address] [place] [address] Hemoglobin (Bld) 12.8 12.0-16.0 G/DL Normal 03-22-2019 [facility] [Mass/Vol] Health Sy stem (34350) Comment: Performed By: #### [id number] #### MARCUS [facility] [address] [place] [address] MCH (RBC) [Entitic mass] 30.9 27.0-31.0 pg Normal 03-[address] [facility] (00 000) Comment: Performed By: #### [id number] #### [facility] [address] MCHC (RBC) [Mass/Vol] 34.1 33.0-37.0 G/DL Normal 03-22-[address] [facility] (00 000) Comment: Performed By: #### [id number] #### MARCUS [facility] [address] [place] [address] MCV (RBC) [Entitic vol] 90.6 78.0-100.0 fL Normal 03-22 [facility] tem (82038) Comment: Performed By: #### [id number] #### MARCUS [facility] [address] [place] [address] Platelet mean volume 8.3 7.4-11.0 fL Normal 9 [facility] (Bld) [Entitic vol] System (35988) Comment: Performed By: #### [id number] #### [facility] [address] [place] [address] Platelets (Bld) [#/Vol] 113 130-400 E3/mcL Low [address] [facility] (00 000) Comment: Performed By: #### [id number] #### MARCUS WilcoxHemo [address] [place] [address] RBC (Bld) [#/Vol] 4.14 3.90-5.40 E6/mcL Normal 03-22-2019 [facility] () Comment: Performed By: #### [id number] #### MARCUS WilcoxHemo [address] [place] [address] WBC (Bld) [#/Vol] 4.1 3.6-11.0 E3/mcL Normal 03-22-2019 [facility] () Comment: Performed By: #### [id number] #### MARCUS JeriHemo [employer] [place] [address] bmp on 2019-03-22 Anion gap [Moles/Vol] 13 10-20 mEq/L Normal 03-22-[address] [facility] () Comment: Performed By: #### [id number] #### MARCUS JeriHemo [employer] [place] [address] Calcium [Mass/Vol] 8.4 8.6-10.3 mg/dL Low 03-22-[address] [facility] (99343) Comment: Performed By: #### [id number] #### MARCUS JeriHemo [employer] [place] [address] Chloride [Moles/Vol] 110 98-107 mEq/L High [address] [facility] () Comment: Performed By: #### [id number] #### MARCUS JeriHemo [address] [place] [address] CO2 [Moles/Vol] 21.0 21.0-32.0 mEq/L Normal 03-22-[address] [facility] () Comment: Performed By: #### [id number] #### MARCUS JeriHemo [address] [place] [address] Creatinine [Mass/Vol] 1.1 0.5-1.1 mg/dL Normal 03-22-[address] [facility] (00 000) Comment: Performed By: #### [id number] #### MARCUS RemHemo [address] [place] [address] Glucose [Mass/Vol] 95 70-99 mg/dL Normal 03-22-[address] [facility] (60931) Comment: Performed By: #### [id number] #### MARCUS Kenyon[address] [address] Potassium [Moles/Vol] 4.0 3.5-5.3 mEq/L Normal 03-22-[address] [facility] (00 000) Comment: Performed By: #### [id number] #### MARCUS Kenyon[address] [address] Sodium [Moles/Vol] 139 136-145 mEq/L Normal 03-22-[address] [facility] (00 000) Comment: Performed By: #### [id number] #### MARCUS Kenyon[address] [address] Urea nitrogen [Mass/Vol] 10 6-23 mg/dL Normal 03-[address] [facility] (00 000) Comment: Performed By: #### [id number] #### MARCUS Kenyon[address] [address] Urea nitrogen/Creatinine 9.1 5.4-30.0 ratio Normal 03-22 [facility] [Mass ratio] [facility] (67641) Comment: Performed By: #### [id number] #### MARCUS Kenyon[address] [address] auto diff on 2019-0 6-05 Basophils (Bld) [#/Vol] 0.0 0.0-0.2 E3/mcL Normal 2018 [facility] Sys tem (95285) Comment: Order Comment: Order Added b y Discern Expert. Performed By: #### [id number] #### MARCUS Kenyono [address] [place] [address] Basophils/100 WBC (Bld) 0.4 0.0-2.0 % Normal [address] [facility] (00 000) Comment: Order Comment: Order Added b y Discern Expert. Performed By: #### [id number] #### MARCUS Kenyon[address] [address] Eos Absolute 0.1 0.0-0.7 E3/mcL Normal 03-22-2019 [facility] (25879) Comment: Order Comment: Order Added b y Discern Expert. Performed By: #### [id number] #### MARCUS WilcoxHemo [address] [place] [address] Eosinophils/100 WBC (Bld) 2.0 0.0-11.0 % Normal [facility] (00 000) Comment: Order Comment: Order Added b y Discern Expert. Performed By: #### [id number] #### MARCUS WilcoxHemo [address] [place] [address] Lymphocytes (Bld) [#/Vol] 1.1 1.2-3.4 E3/mcL Low [facility] (00 000) Comment: Order Comment: Order Added b y Discern Expert. Performed By: #### [id number] #### MARCUS Kenyono [address] [place] [address] Lymphocytes/100 WBC (Bld) 27.1 20.0-55.0 % Normal [facility] Sys tem (04272) Comment: Order Comment: Order Added b y Discern Expert. Performed By: #### [id number] #### MARCUS WilcoxHemo [address] [place] [address] Mclennan Absolute 0.5 0.0-0.7 E3/mcL Normal 03-22-2019 [facility] (97042) Comment: Order Comment: Order Added b y Discern Expert. Performed By: #### [id number] #### MARCUS WilcoxHemo [address] [place] [address] Monocytes/100 WBC (Bld) 11.0 0.0-10.0 % High [address] [facility] (00 000) Comment: Order Comment: Order Added b y Discern Expert. Performed By: #### [id number] #### MARCUS WilcoxHemo [address] [place] [address] Neutro Absolute 2.5 1.4-6.5 E3/mcL Normal 03-22-[address] [facility] (14267) Comment: Order Comment: Order Added b y Discern Expert. Performed By: #### [id number] #### MARCUS Kenyono [address] [place] [address] Neutro Auto 59.5 37.0-75.0 % Normal 03-22-2019 [facility] (49943) Comment: Order Comment: Order Added erma lizama Discern Expert. Performed By: #### [id number] #### MARCUS Kenyoncorky [address] [place] [address] ua complete on 2018 Color (U) Yellow Yellow Normal 03-19-[address] [facility] (80373) Comment: Order Comment: Order Added b y Discern Expert. Performed By: #### [id number] #### MARCUS Kenyoncorky [address] [place] [address] Glucose (U) [Mass/Vol] Negative Negative mg/dL Normal [address] [place], [place] [address]s tem (21844) Comment: Order Comment: Order Added erma lizama Discern Expert. Performed By: #### [id number] #### MARCUS Kenyoncorky [address] [place] [address] Ketones Ql (U) Negative Negative Normal 03-19-2019 [facility] (10207) Comment: Order Comment: Order Added erma lizama Discern Expert. Performed By: #### [id number] #### MARCUS Kenyoncorky [address] [place] [address] RBC (U) [#/Vol] 0-3 0-3 Normal 03-19-[address] [facility] (85970) Comment: Order Comment: Order Added b y Discern Expert. Performed By: #### [id number] #### MARCUS Kenyono [address] [place] [address] UA Blood Negative Negative Normal 03-19-[address] [facility] (06904) Comment: Order Comment: Order Added b y Discern Expert. Performed By: #### [id number] #### MARCUS Kenyono [address] [place] [address] UA Clarity SltCloudy Clear Abnormal 03-19-2019 [facility] (72773) Comment: Order Comment: Order Added b y Discern Expert. Performed By: #### [id number] #### MARCUS JeriHemo [employer] [place] [address] UA Hyal Cast 3-5 0-2 Abnormal 03-19-2019 [facility] (02510) Comment: Order Comment: Order Added erma Aldana Expert. Performed By: #### [id number] #### MARCUSShawn Luong [address] [place] [address] UA Leuk Est 1+ Negative Abnormal 03-19-2019 [facility] (29179) Comment: Order Comment: Order Added erma Aldana Expert. Performed By: #### [id number] #### MARCUSShawn Luong [address] [place] [address] UA Mucous Trace Trace Abnormal 03-19-[address] [facility] (32376) Comment: Order Comment: Order Added erma Aldana Expert. Performed By: #### [id number] #### MARCUS Luong [address] [place] [address] UA Nitrite Negative Negative Normal 03-19-2019 [facility] (66224) Comment: Order Comment: Order Added erma Aldana Expert. Performed By: #### [id number] #### MARCUSShawn Luong [address] [place] [address] UA pH 5.0 4.6-8.0 Normal 03-19-[address] [facility] (62488) Comment: Order Comment: Order Added erma Aldana Expert. Performed By: #### [id number] #### MARCUSShawn Luong [address] [place] [address] UA Protein Negative Negative Normal 03-19-2019 [facility] (18684) Comment: Order Comment: Order Added erma Aldana Expert. Performed By: #### [id number] #### MARCUSShawn Luong [address] [place] [address] UA Spec Grav 1.010 1.003-1.030 Normal 03-19-2019 [facility] (15824) Comment: Order Comment: Order Added erma Aldana Expert. Performed By: #### [id number] #### MARCUSShawn Luong [address] [place], [place] [id number] UA Squam Epithelial 10-20 0-5 Abnormal 03-19-[address] [facility] (61017) Comment: Order Comment: Order Added eram Aldana Expert. Performed By: #### [id number] #### MARCUS Luong [address] [place] [address] UA Urobilinogen Negative Normal 03-19-[address] [facility] (84598) Comment: Order Comment: Order Added erma Aldana [...] laboratory within 24 hours. Performed By: #### [id number] #### MARCUS JeriHemo [address] [place] [address] UA WBC 0-5 0-5 Normal 03-19-[address] [facility] (89517) Comment: Order Comment: Order Added erma Aldana Expert. Performed By: #### [id number] #### MARCUS JeriKarlo [employer] [place] [address] Urobilinogen Qn (U) Negative Negative Normal 03-19-[address] [facility] (00 000) Comment: Order Comment: Order Added erma Aldana Expert. Performed By: #### [id number] #### MARCUS JeriHemo [employer] [place] [address] ionized calcium poc order on 2019-03-18 Ionized Calcium POC Order Collected Normal [facility] (00 000) Comment: Performed By: #### [id number] #### MARCUS JeriHemo [employer] [place] [address] ionized calcium lvl on 2019-03-18 Ionized Ca. 4.5 4.5-5.6 mg/dL Normal 03-18-2019 [facility] (77788) Comment: Performed By: #### [id number] #### MARCUS JeriHemo [employer] [place] [address] egfr on 2019-03-18 GFR/1.73 sq M predicted 56 mL/min/1.73 m2 Normal 0 03-18-2019 [facility] among non-blacks [facility] (14280) (S/P/Bld) [Vol rate/Area] Comment: Order Comment: Order Added erma Aldana Expert. Performed By: #### [id number] #### MARCUS RemHemo [address] [place] [address] GFR/1.73 sq M predicted 46 mL/min/1.73 m2 Normal 0 03-18-2019 [facility] among non-blacks [facility] (64518) (S/P/Bld) [Vol rate/Area] Comment: Order Comment: Order Added b y Discern Expert. Performed By: #### [id number] #### MARCUS RemHemo [address] [place] [address] ct head or brain w/o contrast on 2019-03-18 CT Head or Brain Exam Date/Time: Normal 019 [facility] w/o Contrast 03/18/2019 21:34 EDT Health System Reason for Exam: (00 000) Altered mental status Report STUDY: CT Head or Brain w/o Contrast; 03/18/2019 9:34 pm INDICATION: Altered mental status. COMPARISON: 03/16/2019 ACCESSION NUMBER(S): [id number] ORDERING CLINICIAN: Ac Gao TECHNIQUE: Noncontrast CT [...] Erythrocyte distribution 14.1 11.5-14.5 % Normal 03-18 [facility] width (RBC) [Ratio] Health System (57945) Comment: Performed By: #### [id number] #### MARCUS Kenyono [employer] [place] [address] Hematocrit (Bld) [Volume 40.4 36.0-48.0 % Normal 03-18 [facility] (00862) Comment: Performed By: #### [id number] #### MARCUS WilcoxHemo [employer] [place] [address] Hemoglobin (Bld) 13.4 12.0-16.0 G/DL Normal 03-18-2019 [facility] [Mass/Vol] [facility] (26217) Comment: Performed By: #### [id number] #### MARCUS WilcoxHemo [employer] [place] [address] MCH (RBC) [Entitic mass] 30.2 27.0-31.0 pg Normal 03-[address] [facility] (00 000) Comment: Performed By: #### [id number] #### MARCUSShawn WilcoxHemo [address] [place] [address] MCHC (RBC) [Mass/Vol] 33.1 33.0-37.0 G/DL Normal 03-18-[address] [facility] (00 000) Comment: Performed By: #### [id number] #### MARCUSShawn WilcoxHemo [address] [place] [address] MCV (RBC) [Entitic vol] 91.3 78.0-100.0 fL Normal 03-18 [facility] tem (88604) Comment: Performed By: #### [id number] #### MARCUSShawn WilcoxHemo [address] [place] [address] Platelet mean volume 8.0 7.4-11.0 fL Normal 9 [facility] (Bld) [Entitic vol] System (76548) Comment: Performed By: #### [id number] #### MARCUSShawn WilcoxHemo [employer] [place] [address] Platelets (Bld) [#/Vol] 123 130-400 E3/mcL Low [address] [facility] (00 000) Comment: Performed By: #### [id number] #### MARCUS [facility] [employer] [place] [address] RBC (Bld) [#/Vol] 4.43 3.90-5.40 E6/mcL Normal 03-18-2019 [facility] [facility] () Comment: Performed By: #### [id number] #### MARCUS JeriHemo [address] [place] [address] WBC (Bld) [#/Vol] 4.3 3.6-11.0 E3/mcL Normal 03-18-2019 [facility] () Comment: Performed By: #### [id number] #### MARCUS RemHemo [address] [place] [address] bmp on 2019-03-18 Anion gap [Moles/Vol] 11 10-20 mEq/L Normal 03-18-[address] [facility] () Comment: Performed By: #### [id number] #### MARCUS JeriHemo [employer] [place] [address] Calcium [Mass/Vol] 8.8 8.6-10.3 mg/dL Normal 03-18-[address] [facility] () Comment: Performed By: #### [id number] #### MARCUS RemHemo [address] [place] [address] Chloride [Moles/Vol] 110 98-107 mEq/L High [facility] () Comment: Performed By: #### [id number] #### MARCUS JeriHemo [address] [place] [address] CO2 [Moles/Vol] 20.0 21.0-32.0 mEq/L Low 03-18-[address] [facility] (13992) Comment: Performed By: #### [id number] #### MARCUS RemHemo [address] [place] [address] Creatinine [Mass/Vol] 1.2 0.5-1.1 mg/dL High 03-18-[address] [facility] ( 000) Comment: Performed By: #### [id number] #### MARCUS RemHemo [address] [place] [address] Glucose [Mass/Vol] 90 70-99 mg/dL Normal 03-18-[address] [facility] (32404) Comment: Performed By: #### [id number] #### MARCUS Kenyono [employer] [place] [address] Potassium [Moles/Vol] 4.0 3.5-5.3 mEq/L Normal 03-18-[address] [facility] (00 000) Comment: Performed By: #### [id number] #### MARCUSShawn Kenyono [employer] [place] [address] Sodium [Moles/Vol] 137 136-145 mEq/L Normal 03-18-[address] [facility] (00 000) Comment: Performed By: #### [id number] #### MARCUSShawn Kenyono [address] [place] [address] Urea nitrogen [Mass/Vol] 9 6-23 mg/dL Normal 03-[address] [facility] (00 000) Comment: Performed By: #### [id number] #### MARCUSShawn Wilcox[address] [address] Urea nitrogen/Creatinine 7.5 5.4-30.0 ratio Normal 03-18 [facility] [Mass ratio] [facility] (55308) Comment: Performed By: #### [id number] #### MARCUSShawn Kenyon[address] [address] auto diff on 6- Basophils (Bld) [#/Vol] 0.0 0.0-0.2 E3/mcL Normal 2018 [facility] (79294) Comment: Order Comment: Order Added b y Discern Expert. Performed By: #### [id number] #### MARCUSShawn Kenyono [address] [place] [address] Basophils/100 WBC (Bld) 0.5 0.0-2.0 % Normal [address] [facility] (00 000) Comment: Order Comment: Order Added b y Discern Expert. Performed By: #### [id number] #### MARCUS Kenyono [employer] [place] [address] Eos Absolute 0.1 0.0-0.7 E3/mcL Normal 03-18-2019 [facility] (04132) Comment: Order Comment: Order Added b y Discern Expert. Performed By: #### [id number] #### MARCUS WilcoxHemo [address] [place] [address] Eosinophils/100 WBC (Bld) 2.2 0.0-11.0 % Normal [facility] (00 000) Comment: Order Comment: Order Added b y Discern Expert. Performed By: #### [id number] #### MARCUS WilcoxHemo [employer] [place] [address] Lymphocytes (Bld) [#/Vol] 1.3 1.2-3.4 E3/mcL Normal [facility] tem (48650) Comment: Order Comment: Order Added b y Discern Expert. Performed By: #### [id number] #### MARCUS WilcoxHemo [address] [place] [address] Lymphocytes/100 WBC (Bld) 30.1 20.0-55.0 % Normal [facility] tem (00796) Comment: Order Comment: Order Added b y Discern Expert. Performed By: #### [id number] #### MARCUS RemHemo [address] [place] [address] Mclennan Absolute 0.4 0.0-0.7 E3/mcL Normal 03-18-2019 [facility] (15682) Comment: Order Comment: Order Added b y Discern Expert. Performed By: #### [id number] #### MARCUS WilcoxHemo [address] [place] [address] Monocytes/100 WBC (Bld) 9.9 0.0-10.0 % Normal [address] [facility] (00 000) Comment: Order Comment: Order Added b y Discern Expert. Performed By: #### [id number] #### MARCUS RemHemo [address] [place] [address] Neutro Absolute 2.5 1.4-6.5 E3/mcL Normal 03-18-[address] [facility] (07309) Comment: Order Comment: Order Added b y Discern Expert. Performed By: #### [id number] #### [facility] RemHemo [address] [place] [address] Neutro Auto 57.3 37.0-75.0 % Normal 03-18-2019 [facility] (38490) Comment: Order Comment: Order Added erma Aldana Expert. Performed By: #### [id number] #### MARCUS WilcoxNovaforao [address] [place], [place] [id number] lactic acid on 2018 Lactate [Moles/Vol] 1.2 0.4-2.0 mmol/L Normal 03-16-[address] [facility] (00 000) Comment: Performed By: #### [id number] #### MARCUS [place] [id number] egfr on 2019-03-16 GFR/1.73 sq M predicted 58 mL/min/1.73 m2 Normal 0 03-16-[address] [facility] non-blacks [facility] (47543) (S/P/Bld) [Vol rate/Area] Comment: Order Comment: Order Added erma y Katya Expert. Performed By: #### [id number] #### [place] [address] GFR/1.73 sq M predicted 48 mL/min/1.73 m2 Normal 0 03-16-2019 [facility] (76488) (S/P/Bld) [Vol rate/Area] Comment: Order Comment: Order Added erma Aldana Expert. Performed By: #### [id number] #### [place] [address] [place] spine cervical w/o contrast on 2019-03-16 CT Spine Exam Date/Time: Normal 03-16-2019 [facility] Cervical w/o 03/16/2019 00:08 EDT [facility] Contrast Reason for Exam: Sys tem (65941) Trauma Report STUDY: CT Spine Cervical w/o Contrast; 03/16/2019 12:46 am INDICATION: Trauma. COMPARISON: None. ACCESSION NUMBER(S): [id number] ORDERING CLINICIAN: Caren Lozano TECHNIQUE: Axial noncontrast [...] CT Head or Brain Exam Date/Time: Normal [address] [place] [address] w/o Contrast 03/16/2019 00:08 [facility] Health System Reason for Exam: (00 000) Injury Report STUDY: CT Head or Brain w/o Contrast; 03/16/2019 12:46 am INDICATION: Injury. COMPARISON: 12/01/2018 ACCESSION NUMBER(S): [id number] ORDERING CLINICIAN: Caren Lozano TECHNIQUE: Noncontrast CT [...] Albumin [Mass/Vol] 4.2 3.4-5.0 gm/dL Normal 03-16-[address] [facility] (00 000) Comment: Performed By: #### [id number] #### MARCUS RemHemo [address] [place] [address] Albumin/Globulin [Mass 1.7 1.1-1.9 ratio Normal 019 [facility] (70559) Comment: Performed By: #### [id number] #### MARCUS RemHemo [address] [place] [address] Alk Phos 104 33-110 Int._Unit/L Normal 03-16-2019 [facility] (93992) Comment: Performed By: #### [id number] #### MARCUS RemHemo [address] [place] [address] ALT [Catalytic 31 7-45 Int._Unit/L Normal 03-16-2019 [facility] (63658) Comment: Performed By: #### [id number] #### MARCUS RemHemo [address] [place] [address] Anion gap [Moles/Vol] 12 10-20 mEq/L Normal 03-16-[address] [facility] (00 000) Comment: Performed By: #### [id number] #### MARCUS RemHemo [address] [place] [address] AST [Catalytic 37 9-39 Int._Unit/L Normal 03-16-2019 [facility] (40126) Comment: Performed By: #### [id number] #### MARCUS RemHemo [address] [place] [address] Bili Total 0.79 0.00-1.20 mg/dL Normal 03-16-2019 [facility] (81447) Comment: Performed By: #### [id number] #### MARCUS RemHemo [address] [place] [address] Calcium [Mass/Vol] 8.8 8.6-10.3 mg/dL Normal 03-16-[address] [facility] (00 000) Comment: Performed By: #### [id number] #### MARCUS RemHemo [address] [place] [address] Chloride [Moles/Vol] 110 98-107 mEq/L High [address] [facility] (00 000) Comment: Performed By: #### [id number] #### MARCUS WilcoxHemo [address] [place] [address] CO2 [Moles/Vol] 20.0 21.0-32.0 mEq/L Low 03-16-[address] [facility] (02414) Comment: Performed By: #### [id number] #### MARCUS WilcoxHemo [address] [place] [address] Creatinine [Mass/Vol] 1.2 0.5-1.1 mg/dL High 03-16-[address] [facility] ( 000) Comment: Performed By: #### [id number] #### MARCUS RemHemo [employer] [place] [address] Globulin (S) [Mass/Vol] 3.0 2.0-4.0 G/DL Normal [address] [facility] () Comment: Performed By: #### [id number] #### MARCUS WilcoxHemo [employer] [place] [address] Glucose [Mass/Vol] 114 70-99 mg/dL High 03-16-[address] [facility] (35248) Comment: Performed By: #### [id number] #### MARCUS WilcoxHemo [employer] [place] [address] Potassium [Moles/Vol] 3.4 3.5-5.3 mEq/L Low 03-16-[address] [facility] ( 000) Comment: Performed By: #### [id number] #### MARCUS WilcoxHemo [employer] [place] [address] Protein [Mass/Vol] 6.7 6.4-8.2 gm/dL Normal 03-16-[address] [facility] ( 000) Comment: Performed By: #### [id number] #### MARCUS RemHemo [address] [place] [address] Sodium [Moles/Vol] 139 136-145 mEq/L Normal 03-16-[address] [facility] ( 000) Comment: Performed By: #### [id number] #### MARCUS RemHemo [employer] [place] [address] Urea nitrogen [Mass/Vol] 9 6-23 mg/dL Normal 03-[address] [facility] (00 000) Comment: Performed By: #### [id number] #### MARCUS WilcoxHemo [employer] [place] [address] Urea nitrogen/Creatinine 7.5 5.4-30.0 ratio Normal 03-16 [facility] [Mass ratio] [facility] System (01417) Comment: Performed By: #### [id number] #### MARCUS WilcoxHemo [employer] [place] [address] cbc w/ auto diff on 2019-03-16 Erythrocyte distribution 13.9 11.5-14.5 % Normal 03-16 [facility] width (RBC) [Ratio] Health System (88063) Comment: Performed By: #### [id number] #### MARCUS JeriHemo [address] [place] [address] Hematocrit (Bld) [Volume 40.6 36.0-48.0 % Normal 03-16 [facility]] Health Sys tem (98868) Comment: Performed By: #### [id number] #### MARCUS JeriHemo [address] [place] [address] Hemoglobin (Bld) 13.5 12.0-16.0 G/DL Normal 03-16-2019 [facility] [Mass/Vol] Health Sy stem (35691) Comment: Performed By: #### [id number] #### MARCUS WilcoxHemo [employer] [place] [address] MCH (RBC) [Entitic mass] 30.4 27.0-31.0 pg Normal 03-[address] [facility] (00 000) Comment: Performed By: #### [id number] #### MARCUS RemHemo [employer] [place] [address] MCHC (RBC) [Mass/Vol] 33.3 33.0-37.0 G/DL Normal 03-16-[address] [facility] (00 000) Comment: Performed By: #### [id number] #### MARCUSShawn WilcoxHemo [employer] [place] [address] MCV (RBC) [Entitic vol] 91.4 78.0-100.0 fL Normal 03-16 [facility] (17413) Comment: Performed By: #### [id number] #### MARCUS Kenyono [employer] [place] [address] Platelet mean volume 8.3 7.4-11.0 fL Normal 9 [facility] (Bld) [Entitic vol] System (36859) Comment: Performed By: #### [id number] #### MARCUS Kenyono [address] [place] [address] Platelets (Bld) [#/Vol] 118 130-400 E3/mcL Low [address] [facility] ( 000) Comment: Performed By: #### [id number] #### MARCUS Kenyono [address] [place] [address] RBC (Bld) [#/Vol] 4.45 3.90-5.40 E6/mcL Normal 03-16-2019 [facility] () Comment: Performed By: #### [id number] #### MARCUSShawn Wilcox[address] [address] WBC (Bld) [#/Vol] 4.4 3.6-11.0 E3/mcL Normal 03-16-2019 [facility] () Comment: Performed By: #### [id number] #### MARCUS Kenyon[address] [address] auto diff on 2019-0 5-30 Basophils (Bld) [#/Vol] 0.0 0.0-0.2 E3/mcL Normal 2018 [facility] (31765) Comment: Order Comment: Order Added b y Discern Expert. Performed By: #### [id number] #### MARCUS WilcoxHemo [employer] [place] [address] Basophils/100 WBC (Bld) 0.9 0.0-2.0 % Normal [address] [facility] (00 000) Comment: Order Comment: Order Added b y Discern Expert. Performed By: #### [id number] #### MARCUS WilcoxHemo [address] [place] [address] Eos Absolute 0.1 0.0-0.7 E3/mcL Normal 03-16-2019 [facility] (97719) Comment: Order Comment: Order Added b y Discern Expert. Performed By: #### [id number] #### MARCUS WilcoxHemo [address] [place] [address] Eosinophils/100 WBC (Bld) 2.6 0.0-11.0 % Normal 02-[address] [facility] (00 000) Comment: Order Comment: Order Added b y Discern Expert. Performed By: #### [id number] #### MARCUS RemHemo [address] [place] [address] Lymphocytes (Bld) [#/Vol] 1.0 1.2-3.4 E3/mcL Low 02-[address] [facility] (00 000) Comment: Order Comment: Order Added b y Discern Expert. Performed By: #### [id number] #### MARCUS WilcoxHemo [address] [place] [address] Lymphocytes/100 WBC (Bld) 23.0 20.0-55.0 % Normal 02-17 [facility] (91177) Comment: Order Comment: Order Added b y Discern Expert. Performed By: #### [id number] #### MARCUS WilcoxHemo [address] [place] [address] Mclennan Absolute 0.3 0.0-0.7 E3/mcL Normal 03-16-2019 [facility] (08370) Comment: Order Comment: Order Added b y Discern Expert. Performed By: #### [id number] #### MARCUS WilcoxHemo [address] [place] [address] Monocytes/100 WBC (Bld) 6.8 0.0-10.0 % Normal [address] [facility] (00 000) Comment: Order Comment: Order Added b y Discern Expert. Performed By: #### [id number] #### MARCUS WilcoxHemo [address] [place] [address] Neutro Absolute 2.9 1.4-6.5 E3/mcL Normal 03-16-[address] [facility] (38434) Comment: Order Comment: Order Added b y Discern Expert. Performed By: #### [id number] #### MARCUS RemHemo [address] [place] [address] Neutro Auto 66.7 37.0-75.0 % Normal 03-16-2019 [facility] (37597) Comment: Order Comment: Order Added erma Aldana Expert. Performed By: #### [id number] #### MARCUS RemHemo [address] [place] [address] No panel information on 2019-03-16 Aleksey Longoria MD 03-16-2019 [facility] 03/16/2019 4:19 PM ( 22118) [facility] EEG Report Reason for EEG: Seizures. [...] conc 84 65 - 99 mg/dL 03-16-2019 [facility] (24100) Interpretation and Normal 03-16-2019 [facility] review of (50979) laboratory results Interpretation and Abnormal 03-16-2019 [facility] review of (39370) laboratory results Valproate mass conc <3 OTH - ug/mL Low 03-16-2019 [facility] OTH (09530) Cobalamin (Vitamin 354 193 - pg/mL 03-16-2019 [facility] B12) mass conc 986 (4321 5) Folate mass conc 6.9 3.1 - ng/mL [facility] (98380[facility] Comment: Deficient <2.2 Borderline 2.2 - 3.0 Excessive >17.5 Interpretation and Normal 03-16-2019 [facility] review of laboratory (19155) results Interpretation and Normal 03-16-2019 [facility] review of laboratory (13597) results Thyrotropin Qn 2.12 OTH - OTH m[IU]/L 03-16-2019 [facility] (83764) This order has 03-16-2019 [facility] been (24117) auto-finalized and does not contain a result. This order has 03-16-2019 [facility] (46538) auto-finalized and does not contain a result. ua complete on 2018 Color (U) Yellow Normal 03-11-[address] [facility] (92984) Comment: Performed By: #### [id number] #### MARCUS RemHemo [address] [place] [address] Glucose (U) [Mass/Vol] Negative Negative mg/dL Normal 019 [facility] (36101) Comment: Performed By: #### [id number] #### MARCUS RemHemo [address] [place] [address] Ketones Ql (U) Negative Negative Normal 03-11-2019 [facility] (38777) Comment: Performed By: #### [id number] #### MARCUS RemHemo [address] [place] [address] RBC (U) [#/Vol] 0-3 0-3 Normal 03-11-[address] [facility] (48188) Comment: Performed By: #### [id number] #### MARCUS RemHemo [address] [place] [address] UA Blood Negative Negative Normal 03-11-[address] [facility] (15801) Comment: Performed By: #### [id number] #### MARCUS RemHemo [address] [place] [address] UA Bacteria Trace None Abnormal 03-11-2019 [facility] (55074) Comment: Performed By: #### [id number] #### MARCUS RemHemo [employer] [place] [address] UA Clarity Clear Clear Normal 03-11-2019 [facility] (70638) Comment: Performed By: #### [id number] #### MARCUS RemHemo [address] [place] [address] UA Leuk Est Negative Negative Normal 03-11-2019 [facility] (28427) Comment: Performed By: #### [id number] #### MARCUS RemHemo [address] [place] [address] UA Mucous Trace Trace Abnormal 03-11-[address] [facility] (18870) Comment: Performed By: #### [id number] #### MARCUS WilcoxHemo [address] [place] [address] UA Nitrite Negative Negative Normal 03-11-2019 [facility] (33189) Comment: Performed By: #### [id number] #### MARCUS Kenyono [employer] [place] [address] UA pH 5.0 4.6-8.0 Normal 03-11-[address] [facility] (91254) Comment: Performed By: #### [id number] #### MARCUS WilcoxHemo [employer] [place] [address] UA Protein Negative Negative Normal 03-11-2019 [facility] (89316) Comment: Performed By: #### [id number] #### MARCUS WilcoxHemo [employer] [place] [address] UA Spec Grav 1.012 1.003-1.030 Normal 03-11-2019 [facility] (85356) Comment: Performed By: #### [id number] #### MARCUS WilcoxHemo [address] [place] [address] UA Squam Epithelial 10-20 0-5 Abnormal 03-11-[address] [facility] (37465) Comment: Performed By: #### [id number] #### MARCUS WilcoxHemo [address] [place] [address] UA Urobilinogen Negative Normal 03-11-[address] [facility] (88104) Comment: Result Comment: Due to a man ufacturing issue, low positive urobilinogen results may be fasely positi ve. Correlate with urine bilirubin and additional clinical/laborato ry findings to assess the risk of hemolytic anemia or liver disease. If clinically indicated, repeat testing with an alternate method is availabl e by contacting the laboratory within 24 hours. Performed By: #### [id number] #### MARCUS WilcoxHemo [employer] [place] [address] UA WBC 0-5 0-5 Normal 03-11-[address] [facility] (87913) Comment: Performed By: #### [id number] #### MARCUS WilcoxHemo [employer] [place] [address] Urobilinogen Qn (U) Negative Negative Normal 03-11-2019 [facility] (00 000) Comment: Performed By: #### [id number] #### MARCUS Kenyono [employer] [place] [address] troponin-i on 03-11 Troponin I.cardiac 0.01 0.00-0.03 ng/mL Normal 03-11-2019 [facility] [Mass/Vol] Health Sy [facility] (43343) Comment: Performed By: #### [id number] #### MARCUS Kenyono [employer] [place] [address] egfr on 2019-03-11 GFR/1.73 sq M predicted 58 mL/min/1.73 m2 Normal 0 03-11-2019 [facility] among non-blacks [facility] (81854) (S/P/Bld) [Vol rate/Area] Comment: Order Comment: Order Added b y Katya Expert. Performed By: #### [id number] #### [place]ARCUS [place] [id number] GFR/1.73 sq M predicted 48 mL/min/1.73 m2 Normal 0 03-11-2019 [facility] among non-blacks [facility] (49238) (S/P/Bld) [Vol rate/Area] Comment: Order Comment: Order Added b y Katya Expert. Performed By: #### [id number] #### MARCUS Kenyono [employer] [place] [address] cbc w/ auto diff on 2019-03-11 Erythrocyte distribution 13.9 11.5-14.5 % Normal 03-11 [facility] width (RBC) [Ratio] Health System (34100) Comment: Performed By: #### [id number] #### MARCUS WilcoxHemo [employer] [place] [address] Hematocrit (Bld) [Volume 37.4 36.0-48.0 % Normal 03-11 [facility] fraction] Health Sys tem (61688) Comment: Performed By: #### [id number] #### MARCUS WilcoxHemo [employer] [place] [address] Hemoglobin (Bld) 12.4 12.0-16.0 G/DL Normal 03-11-2019 [facility] [Mass/Vol] Health Sy [facility] (93762) Comment: Performed By: #### [id number] #### MARCUS WilcoxHemo [employer] [place] [address] MCH (RBC) [Entitic mass] 30.2 27.0-31.0 pg Normal 03-[address] [facility] () Comment: Performed By: #### [id number] #### MARCUS WilcoxKarlo [address] [place] [address] MCHC (RBC) [Mass/Vol] 33.1 33.0-37.0 G/DL Normal 03-11-[address] [facility] () Comment: Performed By: #### [id number] #### MARCUS JeriHemo [employer] [place] [address] MCV (RBC) [Entitic vol] 91.2 78.0-100.0 fL Normal 03-11 [facility] (80822) Comment: Performed By: #### [id number] #### MARCUS JeriHemo [address] [place] [address] Platelet mean volume 8.1 7.4-11.0 fL Normal 9 [facility] (Bld) [Entitic vol] System (72897) Comment: Performed By: #### [id number] #### MARCUS WilcoxHemo [employer] [place] [address] Platelets (Bld) [#/Vol] 120 130-400 E3/mcL Low [address] [facility] () Comment: Performed By: #### [id number] #### MARCUS JeriHemo [address] [place] [address] RBC (Bld) [#/Vol] 4.11 3.90-5.40 E6/mcL Normal 03-11-2019 [facility] () Comment: Performed By: #### [id number] #### MARCUSShawn WilcoxHemo [employer] [place] [address] WBC (Bld) [#/Vol] 3.6 3.6-11.0 E3/mcL Normal 03-11-2019 [facility] () Comment: Performed By: #### [id number] #### MARCUS RemHemo [address] [place] [address] bmp on 2019-03-11 Anion gap [Moles/Vol] 11 10-20 mEq/L Normal 03-11-[address] [facility] () Comment: Performed By: #### [id number] #### MARCUS RemHemo [address] [place] [address] Calcium [Mass/Vol] 8.4 8.6-10.3 mg/dL Low 03-11-[address] [facility] (65331) Comment: Performed By: #### [id number] #### MARCUS RemHemo [address] [place] [address] Chloride [Moles/Vol] 110 98-107 mEq/L High [facility] () Comment: Performed By: #### [id number] #### MARCUS RemHemo [address] [place] [address] CO2 [Moles/Vol] 19.0 21.0-32.0 mEq/L Low 03-11-[address] [facility] (11166) Comment: Performed By: #### [id number] #### MARCUS RemHemo [address] [place] [address] Creatinine [Mass/Vol] 1.2 0.5-1.1 mg/dL High 03-11-[address] [facility] ( 000) Comment: Performed By: #### [id number] #### MARCUS RemHemo [address] [place] [address] Glucose [Mass/Vol] 88 70-99 mg/dL Normal 03-11-[address] [facility] (00113) Comment: Performed By: #### [id number] #### MARCUS RemHemo [address] [place] [address] Potassium [Moles/Vol] 3.8 3.5-5.3 mEq/L Normal 03-11-[address] [facility] ( 000) Comment: Performed By: #### [id number] #### MARCUS RemHemo [address] [place] [address] Sodium [Moles/Vol] 136 136-145 mEq/L Normal 03-11-[address] [facility] () Comment: Performed By: #### [id number] #### MARCUS WilcoxHemo [address] [place] [address] Urea nitrogen [Mass/Vol] 12 6-23 mg/dL Normal 03-[address] [facility] () Comment: Performed By: #### [id number] #### MARCUSShawn Wilcox[address] [address] Urea nitrogen/Creatinine 10.0 5.4-30.0 ratio Normal 03-11 [facility] [Mass ratio] [facility] (89093) Comment: Performed By: #### [id number] #### [address] [address] auto diff on 03-11 Basophils (Bld) [#/Vol] 0.0 0.0-0.2 E3/mcL Normal 2018 [facility] () Comment: Order Comment: Order Added b y Discern Expert. Performed By: #### [id number] #### MARCUS WilcoxHemo [address] [place] [address] Basophils/100 WBC (Bld) 0.3 0.0-2.0 % Normal [address] [facility] () Comment: Order Comment: Order Added b y Discern Expert. Performed By: #### [id number] #### MARCUS WilcoxHemo [address] [place] [address] Eos Absolute 0.1 0.0-0.7 E3/mcL Normal 03-11-2019 [facility] () Comment: Order Comment: Order Added b y Discern Expert. Performed By: #### [id number] #### [facility] [facility] [address] [place] [address] 37094 Eosinophils/100 WBC (Bld) 3.7 0.0-11.0 % Normal 02-[address] [facility] () Comment: Order Comment: Order Added b y Discern Expert. Performed By: #### [id number] #### [facility] [address] [place] [address] 90679 Lymphocytes (Bld) [#/Vol] 1.0 1.2-3.4 E3/mcL Low 02-[address] [facility] (00 000) Comment: Order Comment: Order Added erma lizama Discern Expert. Performed By: #### [id number] #### MARCUS WilcoxHemo [address] [place] [address] 55448 Lymphocytes/100 WBC (Bld) 28.2 20.0-55.0 % Normal 02-16 [facility] (64383) Comment: Order Comment: Order Added b y Discern Expert. Performed By: #### [id number] #### MARCUS JeriHemo [address] [place] [address] 90045 Mclennan Absolute 0.3 0.0-0.7 E3/mcL Normal 03-11-2019 [facility] (68710) Comment: Order Comment: Order Added b y Discern Expert. Performed By: #### [id number] #### MARCUSShawn WilcoxHemo [address] [place] [address] 10847 Monocytes/100 WBC (Bld) 8.9 0.0-10.0 % Normal [address] [facility] (00 000) Comment: Order Comment: Order Added b y Discern Expert. Performed By: #### [id number] #### MARCUS WilcoxHemo [employer] [place] [address] Neutro Absolute 2.1 1.4-6.5 E3/mcL Normal 03-11-[address] [facility] (48168) Comment: Order Comment: Order Added b y Discern Expert. Performed By: #### [id number] #### MARCUSShawn WilcoxHemo [address] [place] [address] 30766 Neutro Auto 58.9 37.0-75.0 % Normal 03-11-2019 [facility] (74166) Comment: Order Comment: Order Added b y Discern Expert. Performed By: #### [id number] #### MARCUSShawn WilcoxHemo [address] [place] [address] 04938 No panel information on 2019-03-08 Ammonia mass conc 30 OTH - OTH ug/dL 03-08-2019 [facility] ([facility]) (34739) Interpretation and Normal 03-08-2019 [facility] review of laboratory (42250) results Interpretation and Normal 03-08-2019 [facility] review of laboratory (02056) results Thyrotropin Qn 2.54 OTH - OTH m[IU]/L 03-08-2019 [facility] (63624) Albumin mass conc 3.6 3.2 - 5.2 g/dL 03-08-2019 [facility] (63020) ALP enzyme act/vol 99 40 - 150 U/L 03-08-2019 [facility] (81069) ALT enzyme act/vol 31 14 - 65 U/L 03-08-2019 [facility] (26903) Anion gap molar conc 12 10 - 20 mmol/L 9 [facility] (83615) AST enzyme act/vol 29 0 - 45 U/L 03-08-2019 [facility] (87370) Bilirubin mass conc 0.6 0 - 1.3 mg/dL 03-08-2019 [facility] (37132) Calcium mass conc 8.4 8.4 - mg/dL 03-08-2019 [facility] 10.2 (01783) Chloride molar conc 114 98 - 108 mmol/L High 03-08-2019 [facility] (14678) Creatinine mass conc 1.31 0.4 - 1.1 mg/dL High 9 [facility] (71516) GFR/1.73 sq M The eGFR should 03-08-2019 [facility] predicted among be used for (4 2541) non-blacks MDRD vol monitoring renal rate/area (S/P/Bld) function only and not for medication dosing. GFR/1.73 sq 49 >=60 Low 03-08-2019 [facility].predicted CKD-EPI mL/min/1. (91846) vol rate/area 73 m2 (S/P/Bld) Glucose mass conc 94 65 - 99 mg/dL 03-08-2019 [facility] (59061) HCO3 molar conc 20 21 - 32 mmol/L Low 03-08-2019 [facility] (04095) Interpretation and Abnormal 03-08-2019 [facility] review of laboratory (30706) results Potassium molar conc 4.1 3.5 - 5.1 mmol/L 9 [facility] (73787) Protein mass conc 7.2 6 - 8 g/dL 03-08-2019 [facility] (53313) Sodium molar conc 142 135 - 145 mmol/L 03-08-2019 [facility] (39863) Urea nitrogen mass 16 8 - 25 mg/dL 03-08-2019 [facility] conc (23658) Urea 12.2 OTH - OTH mg/mg [facility]-08-2019 [facility]/Creatinine (04991) mass ratio Valproate mass conc 4 OTH - OTH ug/mL Low 03-08-2019 [facility] (24919) egfr on 2019-02-24 GFR/1.73 sq M predicted 43 mL/min/1.73 m2 Normal 0 02-24-2019 [facility] among non-blacks [facility] (72959) (S/P/Bld) [Vol rate/Area] Comment: Order Comment: Order Added erma Aldana Expert. Performed By: #### [id number] #### MARCUS Kenyono [employer] [place] [address] GFR/1.73 sq M predicted 52 mL/min/1.73 m2 Normal 0 02-24-2019 [facility] among non-blacks [facility] (99859) (S/P/Bld) [Vol rate/Area] Comment: Order Comment: Order Added erma Aldana Expert. Performed By: #### [id number] #### MARCUS WilcoxHemo [address] [place] [address] bmp on 2019-02-24 Anion gap [Moles/Vol] 12 10-20 mEq/L Normal 02-25-[address] [facility] (00 000) Comment: Performed By: #### [id number] #### MARCUS WilcoxHemo [employer] [place] [address] Calcium [Mass/Vol] 8.9 8.6-10.3 mg/dL Normal 02-24-[address] [facility] (00 000) Comment: Performed By: #### [id number] #### MARCUS WilcoxHemo [address] [place] [address] Chloride [Moles/Vol] 110 98-107 mEq/L High [address] [facility] (00 000) Comment: Performed By: #### [id number] #### MARCUS RemHemo [address] [place] [address] CO2 [Moles/Vol] 21.0 21.0-32.0 mEq/L Normal 02-24-[address] [facility] (00 000) Comment: Performed By: #### [id number] #### MARCUSShawn WilcoxHemo [employer] [place] [address] Creatinine [Mass/Vol] 1.3 0.5-1.1 mg/dL High 02-25-[address] [facility] (00 000) Comment: Performed By: #### [id number] #### MARCUSShawn WilcoxHemo [employer] [place] [address] Glucose [Mass/Vol] 89 70-99 mg/dL Normal 02-24-[address] [facility] (71406) Comment: Performed By: #### [id number] #### MARCUSShawn WilcoxHemo [employer] [place] [address] Potassium [Moles/Vol] 4.5 3.5-5.3 mEq/L Normal 02-25-[address] [facility] () Comment: Performed By: #### [id number] #### MARCUSShawn WilcoxHemo [address] [place] [address] 64439 Sodium [Moles/Vol] 138 136-145 mEq/L Normal 02-24-[address] [facility] ( 000) Comment: Performed By: #### [id number] #### MARCUS Kostaso [address] [place] [address] 15428 Urea nitrogen [Mass/Vol] 15 6-23 mg/dL Normal 02-[address] [facility] (00 000) Comment: Performed By: #### [id number] #### MARCUSShawn WilcoxHemo [employer] [place] [address] Urea nitrogen/Creatinine 11.5 5.4-30.0 ratio Normal 02-24 [facility] [Mass ratio] [facility] (98328) Comment: Performed By: #### [id number] #### MARCUS JeriHemo [employer] [place] [address] zzplt morph on 2018 Platelet morphology finding NORMAL Normal [facility] (d) System (00 000) Comment: Performed By: #### [id number] #### MARCUSShawn WilcoxHemo [address] [place] [address] 78447 Platelets (Bld) [#/Vol] DECREASED Normal [address] [facility] (00 000) Comment: Performed By: #### [id number] #### MARCUS Kenyono [address] [place] [address] 20102 manual diff on 2018 Band form neutrophils/100 WBC 9 0-1 High 02-23-2019 [facility] (d) System (00 000) Comment: Order Comment: Order Added b y Discern Expert. Performed By: #### [id number] #### MARCUS WilcoxHemo [address] [place] [address] 90425 Basophil Man 0 0-1 % Normal 02-23-2019 [facility] (26330) Comment: Order Comment: Order Added b y Discern Expert. Performed By: #### [id number] #### MARCUS WilcoxHemo [address] [place] [address] 97774 Eosinophils/100 WBC (Bld) 2 0-5 % Normal [facility] (28647) Comment: Order Comment: Order Added b y Discern Expert. Performed By: #### [id number] #### MARCUS WilcoxHemo [address] [place] [address] 08962 Lymphocytes/100 WBC (Bld) 33 14-48 % Normal [facility] (00 000) Comment: Order Comment: Order Added b y Discern Expert. Performed By: #### [id number] #### MARCUS WilcoxHemo [address] [place] [address] 95614 Langtry Man 3 0-0 % High 02-23-[address] [facility] (34461) Comment: Order Comment: Order Added b y Discern Expert. Performed By: #### [id number] #### MARCUS RemHemo [address] [place] [address] Monocyte Man 11 1-11 % Normal 02-23-2019 [facility] (38105) Comment: Order Comment: Order Added b y Discern Expert. Performed By: #### [id number] #### MARCUS RemHemo [address] [place] [address] Myelo Man 2 0-0 % High 02-23-[address] [facility] (13939) Comment: Order Comment: Order Added erma y Discern Expert. Performed By: #### [id number] #### MARCUS WilcoxKarlo [address] [place] [address] Ovalocytes 1+ Normal 02-23-2019 [facility] (31063) Comment: Order Comment: Order Added b y Discern Expert. Performed By: #### [id number] #### MARCUSShawn Luong [employer] [place] 07[address] Polychromasia 1+ Normal 02-23-2019 [facility] (25462) Comment: Order Comment: Order Added b y Discern Expert. Performed By: #### [id number] #### MARCUSShawn Luong [employer] [place] 0775[address] RBC morphology finding SEE MORPHOLOGY Normal [facility] (83350) Comment: Order Comment: Order Added erma y Discern Expert. Performed By: #### [id number] #### MARCUS JeriRahul [address] [place], [place] [address] Segs Man 40 37-75 % Normal 02-23-[address] [facility] (78043) Comment: Order Comment: Order Added b y Discern Expert. Performed By: #### [id number] #### MARCUS Kenyoncorky [address] [place] [address] lamotrigine lvl on 2019-02-23 Lamotrigine Lvl None Detected 2.0-20.0 Normal 02-23-[address] [facility] (00 000) Comment: Result Comment: This test wa s developed and its performance characteristics determined by [facility]. It guzman s not been cleared or approved by the Food and Nabeel g Administration. Detection Limit = 1.0 Performed At: [facility] [id number] Aramis Sharpe MD Performed By: #### [id number] #### MARCUS Kenyono [employer] [place] [phone] egfr on 2019-02-23 GFR/1.73 sq M predicted 50 mL/min/1.73 m2 Normal 0 02-23-2019 [facility] among non-blacks [facility] (16127) (S/P/Bld) [Vol rate/Area] Comment: Order Comment: Order Added b dl Aldana Expert. Performed By: #### [id number] #### MARCUS WilcoxKarlo [employer] [place] [address] GFR/1.73 sq M predicted 60 mL/min/1.73 m2 Normal 0 02-23-2019 [facility] among non-blacks [facility] (96875) (S/P/Bld) [Vol rate/Area] Comment: Order Comment: Order Added erma Aldana Expert. Performed By: #### [id number] #### MARCUSShawn Kenyono [employer] [place] [address] cmp on 2019-02-23 Albumin [Mass/Vol] 3.3 3.4-5.0 gm/dL Low 02-23-2019 [facility] (75379) Comment: Performed By: #### [id number] #### MARCUS Kostaso [address] [place] [address] 07344 Albumin/Globulin [Mass 1.5 1.1-1.9 ratio Normal [facility]] Health Sys tem (59206) Comment: Performed By: #### [id number] #### MARCUS WilcoxHemo [employer] [place] [address] Alk Phos 57 33-110 Int._Unit/L Normal 02-23-2019 [facility] (96037) Comment: Performed By: #### [id number] #### MARCUS JeriHemo [employer] [place] [address] ALT [Catalytic 12 7-45 Int._Unit/L Normal 02-23-2019 [facility] (46724) Comment: Performed By: #### [id number] #### MARCUS JeriHemo [address] [place] [address] Anion gap [Moles/Vol] 10 10-20 mEq/L Normal 02-24-20 19 [facility] (00 000) Comment: Performed By: #### [id number] #### MARCUS WilcoxHemo [address] [place] [address] AST [Catalytic 20 9-39 Int._Unit/L Normal 02-23-2019 [facility] activity/[facility] (71418) Comment: Performed By: #### [id number] #### MARCUS RemHemo [address] [place] [address] Bili Total 0.33 0.00-1.20 mg/dL Normal 02-23-2019 [facility] (99975) Comment: Performed By: #### [id number] #### MARCUS JeriHemo [address] [place] [address] Calcium [Mass/Vol] 8.3 8.6-10.3 mg/dL Low 02-23-[address] [facility] (30667) Comment: Performed By: #### [id number] #### MARCUS JeriHemo [address] [place] [address] Chloride [Moles/Vol] 114 98-107 mEq/L High [address] [facility] () Comment: Performed By: #### [id number] #### MARCUS RemHemo [employer] [place] [address] CO2 [Moles/Vol] 22.0 21.0-32.0 mEq/L Normal 02-23-[address] [facility] (00 000) Comment: Performed By: #### [id number] #### MARCUS RemHemo [employer] [place] [address] Creatinine [Mass/Vol] 1.2 0.5-1.1 mg/dL High 02-24-[address] [facility] (00 000) Comment: Performed By: #### [id number] #### MARCUS RemHemo [employer] [place] [address] Globulin (S) [Mass/Vol] 2.0 2.0-4.0 G/DL Normal [address] [facility] (00 000) Comment: Performed By: #### [id number] #### MARCUS RemHemo [address] [place] [address] Glucose [Mass/Vol] 86 70-99 mg/dL Normal 02-23-[address] [facility] (08460) Comment: Performed By: #### [id number] #### MARCUS RemHemo [address] [place] [address] Potassium [Moles/Vol] 4.4 3.5-5.3 mEq/L Normal 02-24-[address] [facility] (00 000) Comment: Performed By: #### [id number] #### MARCUS WilcoxHemo [address] [place] [address] Protein [Mass/Vol] 5.5 6.4-8.2 gm/dL Low 02-23-[address] [facility] (16042) Comment: Performed By: #### [id number] #### MARCUS JeriHemo [employer] [place] [address] Sodium [Moles/Vol] 141 136-145 mEq/L Normal 02-23-[address] [facility] (00 000) Comment: Performed By: #### [id number] #### MARCUS JeriHemo [employer] [place] [address] Urea nitrogen [Mass/Vol] 11 6-23 mg/dL Normal 02-[address] [facility] (00 ) Comment: Performed By: #### [id number] #### MARCUS JeriHemo [address] [place] [address] 01804 Urea nitrogen/Creatinine 9.2 5.4-30.0 ratio Normal 02-23 [facility] [Mass ratio] [facility] (33954) Comment: Performed By: #### [id number] #### MARCUS JeriHemo [employer] [place] [address] cbc w/ auto diff on 2019-02-23 Erythrocyte distribution 14.7 11.5-14.5 % High 02-23 [facility] width (RBC) [Ratio] Health System (49060) Comment: Performed By: #### [id number] #### MARCUS JeriHemo [employer] [place] [address] Hematocrit (Bld) [Volume 35.2 36.0-48.0 % Low 02-23 [facility]] System (00 000) Comment: Performed By: #### [id number] #### MARCUS JeriHemo [employer] [place] [address] Hemoglobin (Bld) 11.7 12.0-16.0 G/DL Low 02-23-2019 [facility] [Mass/Vol] Health Sy stem (86071) Comment: Performed By: #### [id number] #### MARCUS WilcoxKarlo [employer] [place] [address] MCH (RBC) [Entitic mass] 31.2 27.0-31.0 pg High 02-[address] [facility] ( 000) Comment: Performed By: #### [id number] #### MARCUS WilcoxKarlo [employer] [place] [address] MCHC (RBC) [Mass/Vol] 33.2 33.0-37.0 G/DL Normal 02-24-[address] [facility] () Comment: Performed By: #### [id number] #### MARCUS JeriHemo [employer] [place] [address] MCV (RBC) [Entitic vol] 93.8 78.0-100.0 fL Normal 02-23 [facility] (99429) Comment: Performed By: #### [id number] #### MARCUS WilcoxHemo [address] [place] [address] 21286 Platelet mean volume 7.6 7.4-11.0 fL Normal 9 [facility] (Bld) [Entitic vol] System (17274) Comment: Performed By: #### [id number] #### MARCUS WilcoxHemo [employer] [place] [address] Platelets (Bld) [#/Vol] 56 130-400 E3/mcL Low [address] [facility] () Comment: Performed By: #### [id number] #### MARCUS JeriHemo [address] [place] [address] 25986 RBC (Bld) [#/Vol] 3.75 3.90-5.40 E6/mcL Low 02-23-2019 [facility] () Comment: Performed By: #### [id number] #### MARCUSShawn WilcoxHemo [employer] [place] [address] WBC (Bld) [#/Vol] 2.4 3.6-11.0 E3/mcL Low 02-23-2019 [facility] (56522) Comment: Performed By: #### [id number] #### MARCUS Kenyono [employer] [place] [address] c urine on C Urine Final Report: Rare Normal Normal 05-0 [facility] skin joe isolated System (46360) Comment: Performed By: #### [id number] #### MARCUS Kenyono [employer] [place] [address] ammonia on Ammonia (P) [Mass/Vol] 53 16-53 mcmol/L Normal [address] [facility] (00 000) Comment: Performed By: #### [id number] #### MARCUS Kenyono [address] [place] [address] .manual abs on 2018 Basophil Abs Man 0.0 0.0-0.2 10x3/ Normal 02-23-2019 [facility] (50225) Comment: Order Comment: Order Added b y Discern Expert. Performed By: #### [id number] #### MARCUS Kostascorky [address] [place] [address] Eos Abs Man 0.0 0.0-0.5 10x3/ Normal 02-23-2019 [facility] (61778) Comment: Order Comment: Order Added b y Discern Expert. Performed By: #### [id number] #### MARCUS Kenyono [address] [place] [address] Lymph Abs Man 0.8 1.2-3.4 10x3/ Low 02-23-2019 [facility] (63929) Comment: Order Comment: Order Added b y Discern Expert. Performed By: #### [id number] #### MARCUS Kostaso [address] [place] [address] 32377 Mclennan Abs Man 0.3 0.0-0.7 10x3/ Normal 02-23-2019 [facility] (34152) Comment: Order Comment: Order Added b y Discern Expert. Performed By: #### [id number] #### MARCUS Kostaso [address] [place], [place] [address] Segs Abs Man 1.0 1.4-6.5 10x3/ Low 02-23-2019 [facility] (42907) Comment: Order Comment: Order Added b y Discern Expert. Performed By: #### [id number] #### MARCUSShawn WilcoxHemo [employer] [place] [address] zzplt morph on 2018 Platelet morphology finding ENLARGED Normal [facility] (d) System (00 000) Comment: Performed By: #### [id number] #### MARCUSShawn Kenyono [employer] [place] [address] Platelets (Bld) [#/Vol] DECREASED Normal [address] [facility] (00 000) Comment: Performed By: #### [id number] #### MARCUS JeriHemo [address] [place] [address] 30391 valproic acid on 05-03-08 Valpro Acid Lvl 75 50-100 microgram/mL Normal 02-22-[address] [facility] (00 000) Comment: Performed By: #### [id number] #### MARCUS Jeri[address] [address] phosphorus on 02-22 Phosphate [Mass/Vol] 2.7 2.5-4.9 mg/dL Normal [address] [facility] (00 000) Comment: Performed By: #### [id number] #### MARCUS Kostaso [address] [place] [address] 93750 manual diff on 2018 Anisocytosis Ql (Bld) 1+ Normal 02-23-[address] [facility] (36359) Comment: Order Comment: Order Added erma y Discern Expert. Performed By: #### [id number] #### MARCUSShawn Luong [address] [place] [address] 87633 Basophil Man 0 0-1 % Normal 02-22-2019 [facility] (78459) Comment: Order Comment: Order Added b y Discern Expert. Performed By: #### [id number] #### MARCUSShawn Kenyono [address] [place] [address] 77553 Eosinophils/100 WBC (Bld) 0 0-5 % Normal 05-[address] [facility] (35123) Comment: Order Comment: Order Added b y Discern Expert. Performed By: #### [id number] #### MARCUS Kenyono [address] [place] [address] Lymphocytes/100 WBC (d) 51 14-48 % High 05- 8-[address] [facility] (62531) Comment: Order Comment: Order Added erma Aldana Expert. Performed By: #### [id number] #### MARCUS Kenyono [address] [place] [address] Monocyte Man 9 1-11 % Normal 02-22-2019 [facility] (92944) Comment: Order Comment: Order Added b dl Discern Expert. Performed By: #### [id number] #### MARCUS JeriRahul [employer] [place] [address] RBC morphology finding SEE MORPHOLOGY Normal [facility] (14489) Comment: Order Comment: Order Added erma Aldana Expert. Performed By: #### [id number] #### MARCUS Kostaso [address] [place] [address] 81244 Segs Man 40 37-75 % Normal 02-22-[address] [facility] (16407) Comment: Order Comment: Order Added erma Aldana Expert. Performed By: #### [id number] #### MARCUS Kenyono [address] [place] [address] 17615 magnesium on 08 Magnesium [Mass/Vol] 1.8 1.6-2.4 mg/dL Normal [address] [facility] (00 000) Comment: Performed By: #### [id number] #### MARCUSShawn Kenyon[address] [address] hgba1c on 8 HbA1c ([facility]) [Mass fraction] 5.1 4.0-6.3 % Normal [facility] (00 000) Comment: Performed By: #### [id number] #### MARCUSShawn Kenyono [address] [place], [place] [address] gases - blood on 05-03-08 Allens Test. Normal 02-22-2019 [facility] (23997) Comment: Performed By: #### [id number] #### [facility] [address] [place], [place] [address] Base Excess. -9 -2-3 mmol/L Low 02-22-2019 [facility] (94779) Comment: Performed By: #### [id number] #### MARCUS RemHemo [employer] [place] [address] CO2 Tot. 17 22-28 mmol/L Low 02-22-[address] [facility] (85123) Comment: Performed By: #### [id number] #### MARCUS RemHemo [employer] [place] [address] CPAP/PEEP(cmH2O). NOT CALCULATED Normal [address] [facility] (00 000) Comment: Performed By: #### [id number] #### MARCUS RemHemo [employer] [place] [address] FiO2. 21 % Normal 02-22-[address] [facility] (34406) Comment: Performed By: #### [id number] #### MARCUS RemHemo [employer] [place] [address] HCO#. 16.3 22.0-26.0 mmol/L Low 02-22-[address] [facility] (82529) Comment: Performed By: #### [id number] #### MARCUS RemHemo [employer] [place] [address] O2 Devices. Room Air Normal 02-22-2019 [facility] (31481) Comment: Performed By: #### [id number] #### MARCUS RemHemo [employer] [place] [address] OPID. [id number] Normal 02-22-[address] [facility] (99933) Comment: Performed By: #### [id number] #### MARCUS RemHemo [employer] [place] [address] Oxygen (Bld) [Partial 101 80-100 mmHg High 02-23-20 [facility]] System (00 000) Comment: Performed By: #### [id number] #### MARCUS RemHemo [employer] [place] [address] Oxygen saturation in Blood 98 95-100 % Normal [facility] (00 000) Comment: Performed By: #### [id number] #### [place] [address] P CO2. 28.4 35.0-45.0 mmHg Low 02-22-[address] [facility] (10574) Comment: Performed By: #### [id number] #### [place] [address] Patient Temp. NOT CALCULATED Normal 02-22-[address] [facility] (51385) Comment: Performed By: #### [id number] #### [place] [address] pH (Bld) 7.367 7.350-7.450 Normal 02-22-2019 [facility] (47831) Comment: Performed By: #### [id number] #### [place] [address] PSV/IP(cmH2O). NOT CALCULATED Normal 02-22-[address] [facility] (52828) Comment: Performed By: #### [id number] #### [place] [address] Sample Site. R brach Normal 02-22-2019 [facility] (30756) Comment: Performed By: #### [id number] #### [place] [address] Sample Type. Arterial Normal 02-22-2019 [facility] (83164) Comment: Performed By: #### [id number] #### [place] [address] Set RR(b/min). NOT CALCULATED Normal 02-22-[address] [facility] (60859) Comment: Performed By: #### [id number] #### [facility] [address] [place] [address] Tidal Volume(mL). NOT CALCULATED Normal [address] [facility] (00 000) Comment: Performed By: #### [id number] #### [facility] [address] [place] [address] Vent Mode. NOT CALCULATED Normal 02-22-[address] [facility] (01663) Comment: Performed By: #### [id number] #### MARCUS Kenyono [address] [place] [address] egfr on 2019-02-22 GFR/1.73 sq M predicted 56 mL/min/1.73 m2 Normal 0 02-22-2019 [facility] among non-blacks [facility] (79447) (S/P/Bld) [Vol rate/Area] Comment: Order Comment: Order added erma Aldana Expert. Performed By: #### [id number] # ### MARCUS JeriHemo [employer] [place] [address] GFR/1.73 sq M predicted 46 mL/min/1.73 m2 Normal 0 02-22-2019 [facility] among non-blacks [facility]D [facility] (38041) (S/P/Bld) [Vol rate/Area] Comment: Order Comment: Order added erma Aldana Expert. Performed By: #### [id number] # ### MARCUS JeriHemo [address] [place] [address] cbc w/ auto diff on 2019-02-22 Erythrocyte distribution 15.0 11.5-14.5 % High 02-22 [facility] width (RBC) [Ratio] Health System (70336) Comment: Performed By: #### [id number] #### MARCUS JeriHemo [employer] [place] [address] Hematocrit (Bld) [Volume 35.9 36.0-48.0 % Low 02-22 [facility] Health fraction] System (00 000) Comment: Performed By: #### [id number] #### MARCUS JeriHemo [employer] [place] [address] Hemoglobin (Bld) 11.8 12.0-16.0 G/DL Low 02-22-2019 [facility] [Mass/Vol] Health Sy stem (72471) Comment: Performed By: #### [id number] #### MARCUSShawn WilcoxHemo [employer] [place] [address] MCH (RBC) [Entitic mass] 31.1 27.0-31.0 pg High 02-22 [facility] System (00 000) Comment: Performed By: #### [id number] #### MARCUS [facility] [employer] [place] [address] MCHC (RBC) [Mass/Vol] 32.9 33.0-37.0 G/DL Low 02-23-[address] [facility] (00 000) Comment: Performed By: #### [id number] #### MARCUS WilcoxHemo [employer] [place] [address] MCV (RBC) [Entitic vol] 94.6 78.0-100.0 fL Normal 02-22 [facility] Sys tem (66069) Comment: Performed By: #### [id number] #### MARCUS WilcoxHemo [employer] [place] [address] Platelet mean volume 7.9 7.4-11.0 fL Normal 9 [facility] (Bld) [Entitic vol] System (82557) Comment: Performed By: #### [id number] #### MARCUS WilcoxHemo [employer] [place] [address] Platelets (Bld) [#/Vol] 62 130-400 E3/mcL Low [address] [facility] (00 000) Comment: Performed By: #### [id number] #### MARCUS WilcoxHemo [employer] [place] [address] RBC (Bld) [#/Vol] 3.79 3.90-5.40 E6/mcL Low 02-22-2019 [facility] (00 000) Comment: Performed By: #### [id number] #### MARCUS WilcoxHemo [employer] [place] [address] WBC (Bld) [#/Vol] 2.8 3.6-11.0 E3/mcL Low 02-22-2019 [facility] (30741) Comment: Performed By: #### [id number] #### MARCUS JeriHemo [address] [place] [address] bmp on 2019-02-22 Anion gap [Moles/Vol] 10 10-20 mEq/L Normal 02-23-[address] [facility] (00 000) Comment: Performed By: #### [id number] # ### MARCUS WilcoxHemo [address] [place] [address] Calcium [Mass/Vol] 7.7 8.6-10.3 mg/dL Low 02-22-[address] [facility] (32944) Comment: Performed By: #### [id number] # ### MARCUS WilcoxHemo [address] [place] [address] Chloride [Moles/Vol] 115 98-107 mEq/L High [address] [facility] (00 000) Comment: Performed By: #### [id number] # ### MARCUS WilcoxHemo [address] [place] [address] CO2 [Moles/Vol] 20.0 21.0-32.0 mEq/L Low 02-22-[address] [facility] (63552) Comment: Performed By: #### [id number] # ### MRACUS WilcoxHemo [address] [place] [address] Creatinine [Mass/Vol] 1.2 0.5-1.1 mg/dL High 02-23-[address] [facility] (00 000) Comment: Performed By: #### [id number] # ### MARCUS JeriHemo [address] [place] [address] Glucose [Mass/Vol] 89 70-99 mg/dL Normal 02-22-[address] [facility] (76000) Comment: Performed By: #### [id number] # ### MARCUS WilcoxHemo [employer] [place] [address] Potassium [Moles/Vol] 4.3 3.5-5.3 mEq/L Normal 02-23-[address] [facility] (00 000) Comment: Performed By: #### [id number] # ### MARCUS RemHemo [employer] [place] [address] Sodium [Moles/Vol] 141 136-145 mEq/L Normal 02-22-[address] [facility] (00 000) Comment: Performed By: #### [id number] # ### MARCUS RemHemo [address] [place] [address] Urea nitrogen [Mass/Vol] 14 6-23 mg/dL Normal 02-[address] [facility] (00 000) Comment: Performed By: #### [id number] # ### MARCUS RemHemo [address] [place] [address] Urea nitrogen/Creatinine 11.7 5.4-30.0 ratio Normal 02-22 [facility] [Mass ratio] [facility] (39399) Comment: Performed By: #### [id number] # ### MARCUS Kenyono [address] [place] [address] .manual abs on 2018 Basophil Abs Man 0.0 0.0-0.2 10x3/ Normal 02-22-2019 [facility] (41170) Comment: Order Comment: Order Added b y Discern Expert. Performed By: #### [id number] #### MARCUSShawn WilcoxKarlo [address] [place] [address] Eos Abs Man 0.0 0.0-0.5 10x3/ Normal 02-22-2019 [facility] (57205) Comment: Order Comment: Order Added b y Discern Expert. Performed By: #### [id number] #### MARCUSShawn WilcoxKarlcorky [address] [place] [address] Lymph Abs Man 1.4 1.2-3.4 10x3/ Normal 02-22-2019 [facility] (52873) Comment: Order Comment: Order Added b y Discern Expert. Performed By: #### [id number] #### MARCUSShawn WilcoxHemo [address] [place] [address] Mclennan Abs Man 0.3 0.0-0.7 10x3/ Normal 02-22-2019 [facility] (77762) Comment: Order Comment: Order Added b y Discern Expert. Performed By: #### [id number] #### MARCUS Kostaso [address] [place] [address] Segs Abs Man 1.1 1.4-6.5 10x3/ Low 02-22-2019 [facility] (38956) Comment: Order Comment: Order Added b y Discern Expert. Performed By: #### [id number] #### [place] [address] zzplt morph on 2018 Platelet morphology finding ENLARGED Normal [facility] (d) System (00 000) Comment: Performed By: #### [id number] #### MARCUS Urinalysis Automated Suggs bsection [address] [place] [address] Platelets (Bld) [#/Vol] DECREASED Normal [address] [facility] (00 000) Comment: Performed By: #### [id number] #### MARCUS Urinalysis Automated [facility] bsection [address] [place] [address] valproic acid on 05-03-07 Valpro Acid Lvl 102 50-100 microgram/mL Critically 02-21-2019 Sabianist abnormal [facility] H ealt System (00 000) Comment: Result Comment: Critical Res ult (s) Called to and read back by: XUAN GARCIA at: 02/21/2019 18:51 :29 by:ZOFIA Performed By: #### [id number] # ### MARCUS RemHemo [address] [place] [address] Valpro Acid Lvl 101 50-100 microgram/mL Critically 02-21-2019 [facility] H ealt System (00 000) Comment: Result Comment: Critical Res ult (s) Called to and read back by: XUAN GARCIA at: 02/21/2019 13:43 :39 by:RAY Performed By: #### [id number] # ### MARCUS Microbiology Subsection [employer] [place] [id number] ua complete on 2018 Color (U) Straw Yellow Normal 02-21-[address] [facility] (18914) Comment: Order Comment: Straight Cath as needed Performed By: #### [id number] # ### MARCUS Microbiology Subsection [address] [place] [address] Glucose (U) [Mass/Vol] Negative Negative mg/dL Normal 019 [facility] Sys tem (35765) Comment: Order Comment: Straight Cath as needed Performed By: #### [id number] # ### MARCUS Microbiology Subsection [address] [place] [address] Ketones Ql (U) Negative Negative Normal 02-21-2019 [facility] (84952) Comment: Order Comment: Straight Cath as needed Performed By: #### [id number] # ### MARCUS Microbiology Subsection [address] [place] [address] RBC (U) [#/Vol] 0-3 0-3 Normal 02-21-[address] [facility] (55424) Comment: Order Comment: Straight Cath as needed Performed By: #### [id number] # ### MARCUS Microbiology Subsection [address] [place] [address] UA Blood Negative Negative Normal 02-21-[address] [facility] (78255) Comment: Order Comment: Straight Cath as needed Performed By: #### [id number] # ### MARCUS Microbiology Subsection [address] [place] [address] 495[address] UA Bacteria Trace None Abnormal 02-21-2019 [facility] (27290) Comment: Order Comment: Straight Cath as needed Performed By: #### [id number] # ### MARCUS Microbiology Subsection [address] [place] [address]285 UA Clarity SltCloudy Clear Abnormal 02-21-2019 [facility] (12634) Comment: Order Comment: Straight Cath as needed Performed By: #### [id number] # ### MARCUS Microbiology Subsection [address] [place] [address] 35377 UA Leuk Est 1+ Negative Abnormal 02-21-2019 [facility] (10229) Comment: Order Comment: Straight Cath as needed Performed By: #### [id number] # ### MARCUS Microbiology Subsection [address] [place] [address]19[address] UA Mucous Trace Trace Abnormal 02-21-[address] [facility] (34721) Comment: Order Comment: Straight Cath as needed Performed By: #### [id number] # ### MARCUS Microbiology Subsection [address] [place] [address] 52663 UA Nitrite Negative Negative Normal 02-21-2019 [facility] (27695) Comment: Order Comment: Straight Cath as needed Performed By: #### [id number] # ### MARCUS Microbiology Subsection [address] [place] [address] UA pH 5.0 4.6-8.0 Normal 02-21-[address] [facility] (34405) Comment: Order Comment: Straight Cath as needed Performed By: #### [id number] # ### MARCUS Microbiology Subsection [address] [place] [address] 94181 UA Protein Negative Negative Normal 02-21-2019 [facility] (33200) Comment: Order Comment: Straight Cath as needed Performed By: #### [id number] # ### MARCUS Microbiology Subsection [employer] [place] [address] UA Spec Grav 1.005 1.003-1.030 Normal 02-21-2019 [facility] (21686) Comment: Order Comment: Straight Cath as needed Performed By: #### [id number] # ### MARCUS Microbiology Subsection [employer] [place] [address] UA Squam Epithelial 5-10 0-5 Abnormal 02-21-[address] [facility] (79818) Comment: Order Comment: Straight Cath as needed Performed By: #### [id number] # ### MARCUS Microbiology Subsection [address] [place] [address] UA Urobilinogen Negative Normal 02-21-[address] [facility] (11919) Comment: Order Comment: Straight Cath as needed [...] laboratory within 24 hours. Performed By: #### [id number] # ### MARCUS Microbiology Subsection [address] [place] [address] 62842 UA WBC 0-5 0-5 Normal 02-21-[address] [facility] (38361) Comment: Order Comment: Straight Cath as needed Performed By: #### [id number] # ### MARCUS Microbiology Subsection [address] [place] [address]8838 Urobilinogen Qn (U) Negative Negative Normal 02-21-[address] [facility] (00 000) Comment: Order Comment: Straight Cath as needed Performed By: #### [id number] # ### MARCUS Microbiology Subsection [address] [place] [address]89[address] u sodium on 2019-02 Sodium [Moles/Vol] 36 mmol/L Normal 02-21-[address] [facility] (51759) Comment: Performed By: #### [id number] # ### MARCUS Microbiology Subsection [address] [place] [address]441 u protein on 02-21 Protein [Mass/Vol] 4 1-14 mg/dL Normal 02-21-[address] [facility] (01942) Comment: Performed By: #### [id number] # ### MARCUS RemHemo [address] [place] [address] u creatinine on 201 06-22-07 U Creatinine 31 20-300 mg/dL Normal 02-21-2019 [facility] (62845) Comment: Performed By: #### [id number] # ### MARCUS RemHemo [address] [place] [address] u bhcg qlt on 02-21 HCG.beta subunit Qn Neg Neg m[IU]/mL Normal 02-21-[address] [facility] (00 000) Comment: Performed By: #### [id number] # ### MARCUS Microbiology Subsection [address] [place] [address] tsh on 2019-02-21 TSH Qn 4.82 0.30-5.60 mcIU/mL Normal 02-21-[address] [facility] (87417) Comment: Order Comment: With T4fr Ref kurt Performed By: #### [id number] # ### MARCUS Microbiology Subsection [address] [place] [address] salicylate on 02-21 Salicylate Lvl <1.5 4.0-20.0 Low 02-21-2019 [facility] (15355) Comment: Performed By: #### [id number] # ### MARCUS RemHemo [address] [place] [address] morph on 2019-02-21 Polychromasia 1+ Normal 02-21-2019 [facility] (25621) Comment: Order Comment: Straight Cath as needed Performed By: #### [id number] #### MARCUS Urinalysis Automated [facility] bsection [address] [place] [address] RBC morphology finding SEE MORPHOLOGY Normal [facility] (d) Health Sys tem (15617) Comment: Order Comment: Straight Cath as needed Performed By: #### [id number] #### MARCUS Urinalysis Automated [facility] bsection [address] [place] [address] Teardrop Cell 1+ Normal 02-21-2019 [facility] (75144) Comment: Order Comment: Straight Cath as needed Performed By: #### [id number] #### MARCUS Urinalysis Automated [employer] bsection [address] [place] [address] magnesium on 02-21 Magnesium [Mass/Vol] 1.7 1.6-2.4 Int._Unit/L Normal [facility] Sys tem (72846) Comment: Performed By: #### [id number] # ### MARCUS Microbiology Subsection [address] [place] [address] lipase level on 06-22-07 Lipase Lvl 37 9-82 Int._Unit/L Normal 02-21-2019 [facility] (65313) Comment: Performed By: #### [id number] #### MARCUS Urinalysis Automated [employer]gs bsection [address] [place], [place] [id number] lactic acid on 2018 Lactate [Moles/Vol] 1.4 0.4-2.0 mmol/L Normal 02-21-[address] [facility] (00 000) Comment: Order Comment: Sepsis Reflex order due to high lactic acid level Performed By: #### [id number] # ### MARCUS RemHemo [address] [place] [address] Lactate [Moles/Vol] 2.2 0.4-2.0 mmol/L High 02-21-[address] [facility] (00 000) Comment: Performed By: #### [id number] # ### MARCUS RemHemo [employer] [place] [address] hep func panel on Albumin [Mass/Vol] 4.0 3.4-5.0 gm/dL Normal 02-21-[address] [facility] (00 000) Comment: Performed By: #### [id number] #### MARCUS Urinalysis Automated [facility] bsection [address] [place] [address] Albumin/Globulin [Mass 1.5 1.1-1.9 ratio Normal [facility] Sy tem (32262) Comment: Performed By: #### [id number] #### MARCUS Urinalysis Automated [employer] [facility] [address] [place] [address] Alk Phos 69 33-110 Int._Unit/L Normal 02-21-2019 [facility] (13372) Comment: Performed By: #### [id number] #### MARCUS Urinalysis Automated [employer] bsection [address] [place] [address] ALT [Catalytic 18 7-45 Int._Unit/L Normal 02-21-2019 [facility] (08981) Comment: Performed By: #### [id number] #### MARCUS Urinalysis Automated [facility] bsection [address] [place] [address] AST [Catalytic 33 9-39 Int._Unit/L Normal 02-21-2019 [facility] (99825) Comment: Performed By: #### [id number] #### MARCUS Urinalysis Automated [facility] bsection [address] [place] [address] Bili Direct 0.10 0.00-0.30 mg/dL Normal 02-21-2019 [facility] (99536) Comment: Performed By: #### [id number] #### MARCUS Urinalysis Automated [facility] bsection [address] [place] [address] Bili Indirect 0.33 mg/dL Normal 02-21-2019 [facility] (63151) Comment: Result Comment: No establish ed ranges available for the indirect bilirubin Performed By: #### [id number] #### MARCUS Urinalysis Automated [employer] bsection [address] [place] [address] Bili Total 0.43 0.00-1.20 mg/dL Normal 02-21-2019 [facility] (20569) Comment: Performed By: #### [id number] #### MARCUS Urinalysis Automated [facility] bsection [address] [place] [address] Globulin (S) [Mass/Vol] 3.0 2.0-4.0 G/DL Normal [address] [facility] (00 000) Comment: Performed By: #### [id number] #### MARCUS Urinalysis Automated [facility] bsection [address] [place] [address] Protein [Mass/Vol] 6.6 6.4-8.2 gm/dL Normal 02-21-[address] [facility] (00 000) Comment: Performed By: #### [id number] #### MARCUS Urinalysis Automated [facility] bsection [address] [place], [place] [address] gases - blood on 05-03-07 Allens Test. Positive Normal 02-21-2019 [facility] (25374) Comment: Performed By: #### [id number] # ### MARCUS RemHemo [address] [place] [address] Base Excess. -9 -2-3 mmol/L Low 02-21-2019 [facility] (20455) Comment: Performed By: #### [id number] # ### MARCUS RemHemo [employer] [place] [address] CO2 Tot. 18 22-28 mmol/L Low 02-21-[address] [facility] (70199) Comment: Performed By: #### [id number] # ### MARCUS RemHemo [address] [place] [address] CPAP/PEEP(cmH2O). 0 Normal 02-21-2019 [facility] (76281) Comment: Performed By: #### [id number] # ### MARCUS RemHemo [employer] [place] [address] FiO2. 21 % Normal 02-21-[address] [facility] (65173) Comment: Performed By: #### [id number] # ### MARCUS RemHemo [employer] [place] [address] HCO#. 17.2 22.0-26.0 mmol/L Low 02-21-[address] [facility] (72898) Comment: Performed By: #### [id number] # ### AMRCUS RemHemo [employer] [place] [address] O2 Devices. Room Air Normal 02-21-2019 [facility] (55160) Comment: Performed By: #### [id number] # ### MARCUS RemHemo [address] [place] 0775[address] OPID. [id number] Normal 02-21-[address] [facility] (22828) Comment: Performed By: #### [id number] # ### MARCUS RemHemo [address] [place] [address] Oxygen (Bld) [Partial 85 80-100 mmHg Normal 02-22-20 19 [facility]] System (00 000) Comment: Performed By: #### [id number] # ### MARCUS Kostaso [employer] [place] 0775[address] Oxygen saturation in Blood 96 95-100 % Normal [facility] (00 000) Comment: Performed By: #### [id number] # ### MARCUSShawn WilcoxKarlo [employer] [place] 0775[address] P CO2. 32.7 35.0-45.0 mmHg Low 02-21-[address] [facility] (52627) Comment: Performed By: #### [id number] # ### MARCUS Kostaso [employer] [place] 0775205 Patient Temp. NOT CALCULATED Normal 02-21-[address] [facility] (29749) Comment: Performed By: #### [id number] # ### MARCUS Kostaso [address] [place] [address] pH (Bld) 7.329 7.350-7.450 Low 02-21-2019 [facility] (80569) Comment: Performed By: #### [id number] # ### MARCUS Kostaso [address] [place] [address] PSV/IP(cmH2O). 0 Normal 02-21-2019 [facility] (86499) Comment: Performed By: #### [id number] # ### MARCUS Kostaso [address] [place] [address] Sample Site. R rad Normal 02-21-2019 [facility] (21463) Comment: Performed By: #### [id number] # ### MARCUSShawn WilcoxHemo [employer] [place] [address] Sample Type. Arterial Normal 02-21-2019 [facility] (03524) Comment: Performed By: #### [id number] # ### MARCUSShawn WilcoxKralo [employer] [place] [address]75[address] Set RR(b/min). 0 Normal 02-21-2019 [facility] (68671) Comment: Performed By: #### [id number] # ### MARCUSShawn WilcoxHemo [address] [place] [address] Tidal Volume(mL). 0 Normal 02-21-2019 [facility] (80470) Comment: Performed By: #### [id number] # ### MARCUSShawn WilcoxHemo [address] [place] [address] Vent Mode. NOT CALCULATED Normal 02-21-[address] [facility] (78216) Comment: Performed By: #### [id number] # ### MARCUSShawn WilcoxHemo [employer] [place] [address] Allens Test. Neg Normal 02-21-2019 [facility] (63936) Comment: Performed By: #### [id number] # ### MARCUSShawn WilcoxHemo [employer] [place] [address] Base Excess. -8 -2-3 mmol/L Low 02-21-2019 [facility] (88050) Comment: Performed By: #### [id number] # ### MARCUSShawn WilcoxHemo [address] [place] [address] CO2 Tot. 19 22-28 mmol/L Low 02-21-[address] [facility] (56601) Comment: Performed By: #### [id number] # ### MARCUSShawn WilcoxHemo [employer] [place] [address] CPAP/PEEP(cmH2O). NOT CALCULATED Normal [address] [facility] (00 000) Comment: Performed By: #### [id number] # ### MARCUSShawn WilcoxHemo [employer] [place] [address] FiO2. 21 % Normal 02-21-[address] [facility] (15490) Comment: Performed By: #### [id number] # ### MARCUS RemHemo [employer] [place] [address] HCO#. 17.9 22.0-26.0 mmol/L Low 02-21-[address] [facility] (32735) Comment: Performed By: #### [id number] # ### MARCUSShawn WilcoxHemo [employer] [place] [address] O2 Devices. Room Air Normal 02-21-2019 [facility] (59309) Comment: Performed By: #### [id number] # ### MARCUS WilcoxHemo [address] [place] [address] OPID. [id number] Normal 02-21-[address] [facility] (07527) Comment: Performed By: #### [id number] # ### MARCUS WilcoxHemo [employer] [place] [address] Oxygen (Bld) [Partial 86 80-100 mmHg Normal 02-22-20 19 [facility]] System (00 000) Comment: Performed By: #### [id number] # ### MARCUS WilcoxHemo [employer] [place] 0775[address] Oxygen saturation in Blood 96 95-100 % Normal [facility] (00 000) Comment: Performed By: #### [id number] # ### MARCUS WilcoxHemo [address] [place], [place] [address] P CO2. 34.1 35.0-45.0 mmHg Low 02-21-[address] [facility] (82772) Comment: Performed By: #### [id number] # ### MARCUS JeriHemo [address] [place] [address] Patient Temp. NOT CALCULATED Normal 02-21-[address] [facility] (77273) Comment: Performed By: #### [id number] # ### MARCUS Kenyono [employer] [place] [address] pH (Bld) 7.329 7.350-7.450 Low 02-21-2019 [facility] (34753) Comment: Performed By: #### [id number] # ### MARCUS Kostaso [address] [place], [place] [address] PSV/IP(cmH2O). NOT CALCULATED Normal 02-21-[address] [facility] (62492) Comment: Performed By: #### [id number] # ### MARCUS JeriHemo [employer] [place] [address] Sample Site. R rad Normal 02-21-2019 [facility] (97843) Comment: Performed By: #### [id number] # ### MARCUS JeriHemo [employer] [place] [address] Sample Type. Arterial Normal 02-21-2019 [facility] (16602) Comment: Performed By: #### [id number] # ### MARCUS RemHemo [address] [place] [address] Set RR(b/min). NOT CALCULATED Normal 02-21-[address] [facility] (40460) Comment: Performed By: #### [id number] # ### MARCUS RemHemo [address] [place] [address] Tidal Volume(mL). NOT CALCULATED Normal [address] [facility] (00 000) Comment: Performed By: #### [id number] # ### MARCUS RemHemo [address] [place] [address] Vent Mode. NOT CALCULATED Normal 02-21-[address] [facility] (76564) Comment: Performed By: #### [id number] # ### MARCUS RemHemo [address] [place] [address] ethanol on Ethanol [Mass/Vol] <10 <=10 mg/dL Normal 02-21-[address] [facility] (15665) Comment: Performed By: #### [id number] # ### MARCUS Microbiology Subsection [address] [place] [address] egfr on 2019-02-21 GFR/1.73 sq M predicted 49 mL/min/1.73 m2 Normal 0 02-21-2019 [facility] among non-blacks [facility] (04390) (S/P/Bld) [Vol rate/Area] Comment: Order Comment: Straight Cath as needed Performed By: #### [id number] #### MARCUS Urinalysis Automated Suggs bsection [address] [place] [address] GFR/1.73 sq M predicted 40 mL/min/1.73 m2 Normal 0 02-21-2019 [facility]bl[facility] (68353) (S/P/Bld) [Vol rate/Area] Comment: Order Comment: Straight Cath as needed Performed By: #### [id number] #### MARCUS Urinalysis Automated Suggs bsection [address] [place] [address] ck on 2019-02-21 Total CK 46 <=215 Int._Unit/L Normal 02-21-2019 [facility] (33330) Comment: Performed By: #### [id number] #### MARCUS Urinalysis Automated [facility]gs bsection [address] [place] [address] cbc w/ auto diff on 2019-02-21 Erythrocyte distribution 14.7 11.5-14.5 % High 02-21 [facility] width (RBC) [Ratio] Health System (82746) Comment: Performed By: #### [id number] #### MARCUS Urinalysis Automated [facility]gs bsection [address] [place] [address] Hematocrit (Bld) [Volume 41.4 36.0-48.0 % Normal 02-21 [facility] (92981) Comment: Performed By: #### [id number] #### MARCUS Urinalysis Automated Suggs bsection [address] [place] [address] Hemoglobin (Bld) 13.3 12.0-16.0 G/DL Normal 02-21-2019 [facility] [Mass/Vol] Health Sy stem (35697) Comment: Performed By: #### [id number] #### MARCUS Urinalysis Automated Suggs bsection [address] [place] [address] MCH (RBC) [Entitic mass] 30.7 27.0-31.0 pg Normal 02-[address] [facility] (00 000) Comment: Performed By: #### [id number] #### MARCUS Urinalysis Automated [facility] [address]section [address] [place] [address] MCHC (RBC) [Mass/Vol] 32.2 33.0-37.0 G/DL Low 02-22-[address] [facility] (00 000) Comment: Performed By: #### [id number] #### MARCUS Urinalysis Automated [facility] [address]section [address] [place] [address] MCV (RBC) [Entitic vol] 95.5 78.0-100.0 fL Normal 02-21 [facility] Sys tem (76982) Comment: Performed By: #### [id number] #### MARCUS Urinalysis Automated [facility] bsection [address] [place] [address] Platelet mean volume 7.9 7.4-11.0 fL Normal 9 [facility] (d) [Entitic vol] System (85274) Comment: Performed By: #### [id number] #### MARCUS Urinalysis Automated [facility] bsection [address] [place] [address] Platelets (Bld) [#/Vol] 66 130-400 E3/mcL Low [address] [facility] ( 000) Comment: Performed By: #### [id number] #### MARCUS Urinalysis Automated [facility] bsection [address] [place] [address] RBC (Bld) [#/Vol] 4.34 3.90-5.40 E6/mcL Normal 02-21-2019 [facility] () Comment: Performed By: #### [id number] #### MARCUS Urinalysis Automated [facility] bsection [address] [place] [address] WBC (Bld) [#/Vol] 4.2 3.6-11.0 E3/mcL Normal 02-21-2019 [facility] () Comment: Performed By: #### [id number] #### MARCUS Urinalysis Automated [facility] [address]section [address] [place] [address] bmp on 2019-02-21 Anion gap [Moles/Vol] 18 10-20 mEq/L Normal 02-22-[address] [facility] () Comment: Performed By: #### [id number] #### MARCUS Urinalysis Automated [facility] bsection [address] [place] [address] Calcium [Mass/Vol] 8.6 8.6-10.3 mg/dL Normal 02-21-[address] [facility] () Comment: Performed By: #### [id number] #### MARCUS Urinalysis Automated [facility] bsection [address] [place] [address] Chloride [Moles/Vol] 106 98-107 mEq/L Normal [address] [facility] () Comment: Performed By: #### [id number] #### MARCUS Urinalysis Automated [facility] bsection [address] [place] [address] CO2 [Moles/Vol] 16.0 21.0-32.0 mEq/L Low 02-21-[address] [facility] (89827) Comment: Performed By: #### [id number] #### MARCUS Urinalysis Automated [facility]gs bsection [address] [place] [address] Creatinine [Mass/Vol] 1.4 0.5-1.1 mg/dL High 02-22-[address] [facility] (00 000) Comment: Performed By: #### [id number] #### MARCUS Urinalysis Automated [facility] bsection [address] [place] [address] Glucose [Mass/Vol] 165 70-99 mg/dL High 02-21-[address] [facility] (27951) Comment: Performed By: #### [id number] #### MARCUS Urinalysis Automated [facility] bsection [address] [place] [address] Potassium [Moles/Vol] 2.9 3.5-5.3 mEq/L Low 02-22-[address] [facility] (00 000) Comment: Performed By: #### [id number] #### MARCUS Urinalysis Automated [facility] bsection [address] [place] [address] Sodium [Moles/Vol] 137 136-145 mEq/L Normal 02-21-[address] [facility] (00 000) Comment: Performed By: #### [id number] #### MARCUS Urinalysis Automated [facility]gs bsection [address] [place] [address] Urea nitrogen [Mass/Vol] 14 6-23 mg/dL Normal 02-[address] [facility] (00 000) Comment: Performed By: #### [id number] #### MARCUS Urinalysis Automated [facility]gs bsection [address] [place] [address] Urea nitrogen/Creatinine 10.0 5.4-30.0 ratio Normal 02-21 [facility] [Mass ratio] [facility] (73560) Comment: Performed By: #### [id number] #### MARCUS Urinalysis Automated [facility]gs bsection [address] [place] [address] auto diff on 02-21 Basophils (Bld) [#/Vol] 0.0 0.0-0.2 E3/mcL Normal 2018 [facility] tem (44213) Comment: Order Comment: Order Added b y Discern Expert. Performed By: #### [id number] # ### MARCUS Microbiology Subsection [address] [place] [address] Basophils/100 WBC (Bld) 0.4 0.0-2.0 % Normal [address] [facility] (00 000) Comment: Order Comment: Order Added b y Discern Expert. Performed By: #### [id number] # ### MARCUS Microbiology Subsection [address] [place] [address] Eos Absolute 0.1 0.0-0.7 E3/mcL Normal 02-21-2019 [facility] (88020) Comment: Order Comment: Order Added b y Discern Expert. Performed By: #### [id number] # ### MARCUS Microbiology Subsection [address] [place] [address] Eosinophils/100 WBC (Bld) 1.4 0.0-11.0 % Normal [facility] (00 000) Comment: Order Comment: Order Added b y Discern Expert. Performed By: #### [id number] # ### MARCUS Microbiology Subsection [address] [place] [address] Lymphocytes (Bld) [#/Vol] 1.0 1.2-3.4 E3/mcL Low [facility] (00 000) Comment: Order Comment: Order Added b y Discern Expert. Performed By: #### [id number] # ### MARCUS Microbiology Subsection [address] [place] [address] Lymphocytes/100 WBC (Bld) 24.1 20.0-55.0 % Normal [facility] tem (76596) Comment: Order Comment: Order Added b y Discern Expert. Performed By: #### [id number] # ### MARCUS Microbiology Subsection [address] [place] [address] Mclennan Absolute 0.5 0.0-0.7 E3/mcL Normal 02-21-2019 [facility] (37876) Comment: Order Comment: Order Added b y Discern Expert. Performed By: #### [id number] # ### MARCUS Microbiology Subsection [address] [place] [address] Monocytes/100 WBC (Bld) 10.8 0.0-10.0 % High [address] [facility] (00 000) Comment: Order Comment: Order Added b y Discern Expert. Performed By: #### [id number] # ### MARCUS Microbiology Subsection [address] [place] [address] Neutro Absolute 2.7 1.4-6.5 E3/mcL Normal 02-21-[address] [facility] (06355) Comment: Order Comment: Order Added b y Discern Expert. Performed By: #### [id number] # ### MARCUS Microbiology Subsection [address] [place] [address] Neutro Auto 63.3 37.0-75.0 % Normal 02-21-2019 [facility] (49323) Comment: Order Comment: Order Added erma Aldana Expert. Performed By: #### [id number] # ### MARCUS Microbiology Subsection [address] [place] [address] ammonia on Ammonia (P) [Mass/Vol] 55 16-53 mcmol/L High 02-21- [facility] (00 000) Comment: Performed By: #### [id number] # ### MARCUS Microbiology Subsection [address] [place] [address] acetamnphn lvl on Acetaminoph Lvl <10 10-30 Normal 02-21-[address] [facility] (03876) Comment: Performed By: #### [id number] # ### MARCUS Microbiology Subsection [address] [place] [address] nm myocardial perfusion single - stress only on 2018-12-26 [place] Nuclear Report Normal 12-26-2018 [facility] Patient: PABLO OSAMN ([id number]) SINGLE - Med Rec#: [id number] (Age): 1975(43y) STRESS ONLY Height: Study Date: [...] imaging protocol was followed using Tc-99m tetrofosmin (JoGuruview) injected intravenously. For the stress portion of [...] on 2018-12-26 Nuclear Report 12-26-2018 [facility] (34139) Patient: PABLO OSMAN [facility] Rec#: [id number] (Age): 1975(43y ) Height: Study Date: 019 [...] RVPI Interface, Rad In [facility] X per [employer] - 12/26/2018 3:48 PM EDT Nuclear Report 12-26-2018 [facility] (75762) Patient: PABLO OSMAN [facility] Rec#: [id number] (Age): 1975(43y) Height: Study Date: 12/26/2018 Weight: [...] Chest 2 Views Exam Date/Time: Normal 019 [facility] 12/21/2018 04:05 EST [facility] Reason for Exam: (00 000) Cough Report STUDY: XR Chest 2 Views; 12/21/2018 4:05 am INDICATION: Cough. COMPARISON: 10/02/2018 ACCESSION NUMBER(S): [id number] ORDERING CLINICIAN: Bob Wick FINDINGS: No significant [...] Influenzae A Ag Negative Negative Normal 12-21-[address] [facility] (00 000) Comment: Result Comment: Test Perform ed by PCR Testing Performed By: #### [id number] #### MARCUS Urinalysis Automated Suggs bsection [address] [place] [address] Influenzae B Ag Negative Negative Normal 12-21-[address] [facility] (00 000) Comment: Result Comment: Test Perform ed by PCR Testing Performed By: #### [id number] #### MARCUS Urinalysis Automated Suggs bsection [address] [place] [address] ua complete on 2018 Color (U) Minerva Yellow Abnormal 12-12-[address] [facility] (87635) Comment: Performed By: #### [id number] # ### MARCUS RemChem [address] [place] [address] Glucose (U) [Mass/Vol] Negative Negative mg/dL Normal [address] [place] [address] Sys tem (18426) Comment: Performed By: #### [id number] # ### MARCUS RemChem [address] [place] [address] Ketones Ql (U) Trace Normal 12-12-2018 [facility] (13547) Comment: Performed By: #### [id number] # ### MARCUS RemChem [address] [place] [address] RBC (U) [#/Vol] 3-5 0-3 Abnormal 12-12-[address] [facility] (15223) Comment: Performed By: #### [id number] # ### MARCUS RemChem [address] [place] [address] UA Blood 2+ Negative Abnormal 12-12-[address] [facility] (21832) Comment: Performed By: #### [id number] # ### MARCUS RemChem [address] [place] [address] UA Clarity Cloudy Clear Abnormal 12-12-2018 [facility] (84256) Comment: Performed By: #### [id number] # ### MRACUS RemChem [address] [place] [address] UA Hyal Cast 5-10 0-2 Abnormal 12-12-2018 [facility] (79079) Comment: Performed By: #### [id number] # ### MARCUS RemChem [address] [place] [address] UA Leuk Est 3+ Negative Abnormal 12-12-2018 [facility] (01430) Comment: Performed By: #### [id number] # ### MARCUS RemChem [address] [place] [address] UA Nitrite Negative Negative Normal 12-12-2018 [facility] (15773) Comment: Performed By: #### [id number] # ### MARCUS Rem[employer] [address] [place] [address] UA pH 5.0 4.6-8.0 Normal 12-12-[address] [facility] (96585) Comment: Performed By: #### [id number] # ### MARCUS [employer] [address] [place] [address] UA Protein Negative Negative Normal 12-12-2018 [facility] (44168) Comment: Performed By: #### [id number] # ### MARCUS [employer] [address] [place] [address] UA Spec Grav 1.020 1.003-1.030 Normal 12-12-2018 [facility] (30690) Comment: Performed By: #### [id number] # ### MARCUS [employer]Chem [address] [place] [address] UA Squam Epithelial 20-30 0-5 Abnormal 12-12-[address] [facility] (18763) Comment: Performed By: #### [id number] # ### MARCUS RemChem [address] [place] [address] UA Urobilinogen 2.0 mg/dL Abnormal 12-12-[address] [facility] (04786) Comment: Result Comment: Due to a man ufacturing issue, low positive urobilinogen results may be fasely positi ve. Correlate with urine bilirubin and additional clinical/laborato ry findings to assess the risk of hemolytic anemia or liver disease. If clinically indicated, repeat testing with an alternate method is availabl e by contacting the laboratory within 24 hours. Performed By: #### [id number] # ### MARCUS [employer] [address] [place] [address] UA WBC 10-20 0-5 Abnormal 12-12-[address] [facility] (11413) Comment: Performed By: #### [id number] # ### MARCUS Rem[employer] [address] [place] [address] Urobilinogen Qn (U) Negative Negative Normal 12-12-[address] [facility] (00 000) Comment: Performed By: #### [id number] # ### MARCUS [employer] [address] [place] [address] u drug screen on 06-12-24 U Amph Scr Negative Negative Normal 12-12-2018 [facility] (31774) Comment: Performed By: #### [id number] # ### MARCUS [employer] [address] [place] [address] U Kalyani Scr Negative Negative Normal 12-12-2018 [facility] (09032) Comment: Performed By: #### [id number] # ### MARCUS Rem[employer] [address] [place] [address] U Benzodia Scr Negative Negative Normal 12-12-2018 [facility] (73827) Comment: Performed By: #### [id number] # ### MARCUS RemChem [address] [place] [address] U Cannab Scr Negative Negative Normal 12-12-2018 [facility] (36064) Comment: Performed By: #### [id number] # ### MARCUS [employer] [address] [place] [address] U Cocaine Scr Negative Negative Normal 12-12-2018 [facility] (39092) Comment: Performed By: #### [id number] # ### MARCUS RemChem [address] [place] [address] U Opiate Scr Negative Negative Normal 12-12-2018 [facility] (88913) Comment: Performed By: #### [id number] # ### MARCUS RemChem [address] [place] [address] U PCP Scr Negative Negative Normal 12-12-[address] [facility] (04907) Comment: Performed By: #### [id number] # ### MARCUS [employer] [place] [address] troponin-i on 12-12 Troponin I.cardiac .01 .00-.03 ng/mL Normal 12-12-2018 [facility] [Mass/Vol] [facility] (95932) Comment: Performed By: #### [id number] # ### MARCUS RemChem [address] [place] [address] magnesium on 12-12 Magnesium [Mass/Vol] 2.0 1.6-2.4 mg/dL Normal [address] [facility] (00 000) Comment: Performed By: #### [id number] # ### MARCUS [employer] [address] [place] [address] hep func panel on Albumin [Mass/Vol] 4.4 3.4-5.0 gm/dL Normal 12-12-[address] [facility] (00 000) Comment: Performed By: #### [id number] # ### MARCUS [employer] [address] [place] [address] Albumin/Globulin [Mass 1.3 1.1-1.9 ratio Normal [facility]] [facility] (50004) Comment: Performed By: #### [id number] # ### MARCUS RemChem [address] [place] [address] Alk Phos 69 33-110 Int._Unit/L Normal 12-12-2018 [facility] (47828) Comment: Performed By: #### [id number] # ### MARCUSShawn WilcoxChem [address] [place] [address] ALT [Catalytic 34 7-45 Int._Unit/L Normal 12-12-2018 [facility] activity/Vol [facility] (08235) Comment: Performed By: #### [id number] # ### MARCUSShawn [employer]Chem [employer] [place] [address] AST [Catalytic 69 9-39 Int._Unit/L High 12-12-2018 [facility] activity/Vol] [facility] (61786) Comment: Performed By: #### [id number] # ### MARCUS [employer] [place] [address] Bili Direct 0.26 0.00-0.30 mg/dL Normal 12-12-2018 [facility] (38363) Comment: Performed By: #### [id number] # ### MARCUS [address] [place] [address] Bili Indirect 0.57 mg/dL Normal 12-12-2018 [facility] (43083) Comment: Result Comment: No establish ed ranges available for the indirect bilirubin Performed By: #### [id number] # ### MARCUS [address] [address] Bili Total 0.83 0.00-1.20 mg/dL Normal 12-12-2018 [facility] (35037) Comment: Performed By: #### [id number] # ### MARCUS [address] [place] [address] Globulin (S) [Mass/Vol] 3.0 2.0-4.0 G/DL Normal [address] [facility] (00 000) Comment: Performed By: #### [id number] # ### MARCUS [address] [place] [address] Protein [Mass/Vol] 7.7 6.4-8.2 gm/dL Normal 12-12-[address] [facility] (00 000) Comment: Performed By: #### [id number] # ### MARCUS [employer] [place] [address] ethanol on Ethanol [Mass/Vol] <10 <=10 mg/dL Normal 12-12-2018 [facility] (30967) Comment: Performed By: #### [id number] # ### MARCUS [employer] [address] [place] [address] egfr on 2018-12-12 GFR/1.73 sq M predicted 42 mL/min/1.73 m2 Normal 0 12-12-2018 [facility] (56444) (S/P/Bld) [Vol rate/Area] Comment: Order Comment: With T4fr Ref kurt Performed By: #### [id number] # ### MARCUS [employer] [place] [address] GFR/1.73 sq M predicted 35 mL/min/1.73 m2 Normal 0 12-12-2018 [facility] among [facility]bl[facility] (64174) (S/P/Bld) [Vol rate/Area] Comment: Order Comment: With T4fr Ref kurt Performed By: #### [id number] # ### MARCUS [employer] [place] [address] cbc w/ auto diff on 2018-12-12 Erythrocyte distribution 13.8 11.5-14.5 % Normal 12-12 [facility] width (RBC) [Ratio] Health System (59246) Comment: Performed By: #### [id number] # ### MARCUS [employer] [place] [address] Hematocrit (Bld) [Volume 44.1 36.0-48.0 % Normal 12-12 [facility] fraction] Health Sys tem (42665) Comment: Performed By: #### [id number] # ### MARCUS RemChem [address] [place] [address] Hemoglobin (Bld) 14.4 12.0-16.0 G/DL Normal 12-12-2018 [facility] [Mass/Vol] [facility] (28051) Comment: Performed By: #### [id number] # ### MARCUS RemBitpagos [address] [place] [address] MCH (RBC) [Entitic mass] 30.3 27.0-31.0 pg Normal 12-[address] [facility] (00 000) Comment: Performed By: #### [id number] # ### MARCUS [address] [place] [address] MCHC (RBC) [Mass/Vol] 32.7 33.0-37.0 G/DL Low 12-12-[address] [facility] (00 000) Comment: Performed By: #### [id number] # ### MARCUS [address] [place] [address] MCV (RBC) [Entitic vol] 92.9 78.0-100.0 fL Normal 12-12 [facility] (65797) Comment: Performed By: #### [id number] # ### MARCUS [address] [place] [address] Platelet mean volume 8.1 7.4-11.0 fL Normal 9 [facility] (Bld) [Entitic vol] System (61795) Comment: Performed By: #### [id number] # ### MARCUS [address] [address] Platelets (Bld) [#/Vol] 122 130-400 E3/mcL Low [address] [facility] (00 000) Comment: Performed By: #### [id number] # ### MARCUS [address] [address] RBC (Bld) [#/Vol] 4.75 3.90-5.40 E6/mcL Normal 12-12-2018 [facility] (00 000) Comment: Performed By: #### [id number] # ### MARCUS [address] [place] [address] WBC (Bld) [#/Vol] 6.2 3.6-11.0 E3/mcL Normal 12-12-2018 [facility] (00 000) Comment: Performed By: #### [id number] # ### MARCUS [address] [place] [address] bmp on 2018-12-12 Anion gap [Moles/Vol] 16 10-20 mEq/L Normal 12-12-[address] [facility] (00 000) Comment: Performed By: #### [id number] # ### MARCUS RemChem [address] [place] [address] Calcium [Mass/Vol] 9.5 8.6-10.3 mg/dL Normal 12-12-[address] [facility] () Comment: Performed By: #### [id number] # ### MARCUS Rem[employer] [address] [place] [address] Chloride [Moles/Vol] 105 98-107 mEq/L Normal [address] [facility] () Comment: Performed By: #### [id number] # ### MARCUS Rem[employer] [address] [place] [address] CO2 [Moles/Vol] 20.0 21.0-32.0 mEq/L Low 12-12-[address] [facility] (32571) Comment: Performed By: #### [id number] # ### MARCUS Rem[employer] [address] [place] [address] Creatinine [Mass/Vol] 1.6 0.5-1.1 mg/dL High 12-12-[address] [facility] () Comment: Performed By: #### [id number] # ### MARCUS [employer] [address] [place] [address] Glucose [Mass/Vol] 150 70-99 mg/dL High 12-12-[address] [facility] (37816) Comment: Performed By: #### [id number] # ### MARCUS [employer] [address] [place] [address] Potassium [Moles/Vol] 4.4 3.5-5.3 mEq/L Normal 12-12-[address] [facility] (00 000) Comment: Performed By: #### [id number] # ### MARCUS [employer] [address] [place] [address] Sodium [Moles/Vol] 137 136-145 mEq/L Normal 12-12-[address] [facility] () Comment: Performed By: #### [id number] # ### MARCUS Rem[employer] [address] [place] [address] Urea nitrogen [Mass/Vol] 27 6-23 mg/dL High 12-[address] [facility] (00 000) Comment: Performed By: #### [id number] # ### MARCUS [employer] [address] [place] [address] Urea nitrogen/Creatinine 16.9 5.4-30.0 ratio Normal 12-12 [facility] [Mass ratio] [facility] (96423) Comment: Performed By: #### [id number] # ### MARCUS [address] [place] [address] auto diff on 12-12 Basophils (Bld) [#/Vol] 0.0 0.0-0.2 E3/mcL Normal 2018 [facility] (36158) Comment: Order Comment: With T4fr Ref kurt Performed By: #### [id number] # ### MARCUS [employer] [place] [address] Basophils/100 WBC (Bld) 0.4 0.0-2.0 % Normal [address] [facility] (00 000) Comment: Order Comment: With T4fr Ref kurt Performed By: #### [id number] # ### MARCUS Wilcox[employer] [address] [place] [address] Eos Absolute 0.0 0.0-0.7 E3/mcL Normal 12-12-2018 [facility] (62686) Comment: Order Comment: With T4fr Ref kurt Performed By: #### [id number] # ### MARCUS [employer] [place] [address] Eosinophils/100 WBC (Bld) 0.1 0.0-11.0 % Normal 11-[address] [facility] (00 000) Comment: Order Comment: With T4fr Ref kurt Performed By: #### [id number] # ### MARCUS [employer] [place] [address] Lymphocytes (Bld) [#/Vol] 0.6 1.2-3.4 E3/mcL Low 11-[address] [facility] (00 000) Comment: Order Comment: With T4fr Ref kurt Performed By: #### [id number] # ### MARCUS [employer] [place] [address] Lymphocytes/100 WBC (Bld) 9.6 20.0-55.0 % Low 11-[address] [facility] (00 000) Comment: Order Comment: With T4fr Ref kurt Performed By: #### [id number] # ### MARCUS [employer] [address] [place] [address] Mclennan Absolute 0.6 0.0-0.7 E3/mcL Normal 12-12-2018 [facility] (12756) Comment: Order Comment: With T4fr Ref kurt Performed By: #### [id number] # ### MARCUS [employer] [place] [address] Monocytes/100 WBC (Bld) 9.4 0.0-10.0 % Normal [address] [facility] (00 000) Comment: Order Comment: With T4fr Ref kurt Performed By: #### [id number] # ### MARCUS [employer] [address] [place] [address] Neutro Absolute 5.0 1.4-6.5 E3/mcL Normal 12-12-[address] [facility] (83547) Comment: Order Comment: With T4fr Ref kurt Performed By: #### [id number] # ### MARCUS [employer] [address] [place] [address] Neutro Auto 80.5 37.0-75.0 % High 12-12-2018 [facility] (80347) Comment: Order Comment: With T4fr Ref kurt Performed By: #### [id number] # ### MARCUS [employer] [address] [place] [address] ua complete on 2018 Color (U) Yellow Yellow Normal 12-03-[address] [facility] (05759) Comment: Performed By: #### [id number] #### MARCUS [employer] [place] [address] Glucose (U) [Mass/Vol] Negative Negative mg/dL Normal 019 [facility] tem (98336) Comment: Performed By: #### [id number] #### MARCUS [employer] [address] [place] [address] Ketones Ql (U) Negative Negative Normal 12-03-2018 [facility] (23866) Comment: Performed By: #### [id number] #### MARCUS [employer] [address] [place] [address] RBC (U) [#/Vol] 3-5 0-3 Abnormal 12-03-[address] [facility] (99364) Comment: Performed By: #### [id number] #### MARCUSShawn WilcoxChem [address] [place] [address] UA Blood Negative Negative Normal 12-03-[address] [facility] (14376) Comment: Performed By: #### [id number] #### MARCUSShawn WilcoxChem [address] [place] [address] UA Bacteria 1+ None /HPF Abnormal 12-03-2018 [facility] (06101) Comment: Performed By: #### [id number] #### MARCUSShawn WilcoxChem [address] [place] [address] UA Clarity SltCloudy Clear Abnormal 12-03-2018 [facility] (60078) Comment: Performed By: #### [id number] #### MARCUSShawn WilcoxChem [address] [place] [address] UA Leuk Est Trace Negative Normal 12-03-2018 [facility] (42608) Comment: Performed By: #### [id number] #### MARCUS [employer] [address] [place] [address] UA Nitrite Negative Negative Normal 12-03-2018 [facility] (21514) Comment: Performed By: #### [id number] #### MARCUSShawn WilcoxChem [address] [place] [address] UA pH 6.0 4.6-8.0 Normal 12-03-[address] [facility] (60980) Comment: Performed By: #### [id number] #### MARCUS [employer] [address] [place] [address] UA Protein Negative Negative Normal 12-03-2018 [facility] (55144) Comment: Performed By: #### [id number] #### MARCUS [employer] [address] [place] [address] UA Spec Grav 1.016 1.003-1.030 Normal 12-03-2018 [facility] (07644) Comment: Performed By: #### [id number] #### MARCUS [employer] [address] [place] [address] UA Squam Epithelial 10-20 0-5 Abnormal 12-03-[address] [facility] (01749) Comment: Performed By: #### [id number] #### MARCUS [employer] [place] [address] UA Urobilinogen Negative Normal 12-03-[address] [facility] (03114) Comment: Result Comment: Due to a man ufacturing issue, low positive urobilinogen results may be fasely positi ve. Correlate with urine bilirubin and additional clinical/laborato ry findings to assess the risk of hemolytic anemia or liver disease. If clinically indicated, repeat testing with an alternate method is availabl e by contacting the laboratory within 24 hours. Performed By: #### [id number] #### MARCUS WilcoxBitpagos [employer] [place] [address] UA WBC 5-10 0-5 Abnormal 12-03-[address] [facility] (15896) Comment: Performed By: #### [id number] #### MARCUS WilcoxBitpag[facility] [employer] [place] [address] Urobilinogen Qn (U) Negative Negative Normal 12-03-[address] [facility] (00 000) Comment: Performed By: #### [id number] #### MARCUS WilcoxBitpagos [address] [place] [address] u bhcg qlt on 12-03 HCG.beta subunit Qn Neg Neg m[IU]/mL Normal 12-03-[address] [facility] (00 000) Comment: Performed By: #### [id number] #### MARCUSShawn WilcoxBitpagos [employer] [place] [address] lipase level on 201 06-19-16 Lipase Lvl 38 9-82 Int._Unit/L Normal 12-03-2018 [facility] (22379) Comment: Performed By: #### [id number] #### MARCUS WilcoxBit[facility] [employer] [place] [address] egfr on 2018-12-03 GFR/1.73 sq M predicted 56 mL/min/1.73 m2 Normal 0 12-03-2018 [facility] among non-blacks [facility] (75050) (S/P/Bld) [Vol rate/Area] Comment: Order Comment: Order added erma Aldana Expert. Performed By: #### [id number] #### MARCUS RemBitpagos [address] [place] [address] GFR/1.73 sq M predicted 46 mL/min/1.73 m2 Normal 0 12-03-2018 [facility] among non-blacks [facility] (58639) (S/P/Bld) [Vol rate/Area] Comment: Order Comment: Order added erma Aldana Expert. Performed By: #### [id number] #### MARCUS RemBitpagos [address] [place] [address] ct abdomen/pelvis w/o contrast on 2018-12-03 CT Abdomen/Pelvis w/o Exam Date/Time: Normal [facility]ist Contrast 12/03/2018 00:08 EST [facility] Reason for Exam: Sys tem ([id number]) Pain Report STUDY: CT Abdomen/Pelvis w/o Contrast; 12/03/2018 12:08 am INDICATION: Pain. COMPARISON: 09/22/2018 ACCESSION NUMBER(S): [id number] ORDERING CLINICIAN: Heidy Lane TECHNIQUE: Axial noncontrast [...] Albumin [Mass/Vol] 3.6 3.4-5.0 gm/dL Normal 12-03-[address] [facility] (00 000) Comment: Performed By: #### [id number] #### MARCUS [employer] [address] [place] [address] Albumin/Globulin [Mass 1.5 1.1-1.9 ratio Normal [address] [place] [address] Health Sys tem (61730) Comment: Performed By: #### [id number] #### MARCUS Rem[employer] [address] [place] [address] Alk Phos 69 33-110 Int._Unit/L Normal 12-03-2018 [facility] (30394) Comment: Performed By: #### [id number] #### MARCUS Rem[employer] [address] [place] [address] ALT [Catalytic 13 7-45 Int._Unit/L Normal 12-03-2018 [facility] (83532) Comment: Performed By: #### [id number] #### MARCUS [employer] [address] [place] [address] Anion gap [Moles/Vol] 12 10-20 mEq/L Normal 12-03-[address] [facility] (00 000) Comment: Performed By: #### [id number] #### MARCUS [employer] [address] [place] [address] AST [Catalytic 19 9-39 Int._Unit/L Normal 12-03-2018 [facility] (41163) Comment: Performed By: #### [id number] #### MARCUS [employer] [address] [place] [address] Bili Total 0.35 0.00-1.20 mg/dL Normal 12-03-2018 [facility] (75784) Comment: Performed By: #### [id number] #### MARCUS RemChem [address] [place] [address] Calcium [Mass/Vol] 8.3 8.6-10.3 mg/dL Low 12-03-[address] [facility] (22109) Comment: Performed By: #### [id number] #### MARCUS [employer] [address] [place] [address] Chloride [Moles/Vol] 110 98-107 mEq/L High [facility] () Comment: Performed By: #### [id number] #### MARCUS RemChem [address] [place] [address] CO2 [Moles/Vol] 22.0 21.0-32.0 mEq/L Normal 12-03-[address] [facility] () Comment: Performed By: #### [id number] #### MARCUS [employer] [address] [place] [address] Creatinine [Mass/Vol] 1.3 0.5-1.1 mg/dL High 12-03-[address] [facility] (00 000) Comment: Performed By: #### [id number] #### MARCUS [employer] [address] [place] [address] Globulin (S) [Mass/Vol] 2.0 2.0-4.0 G/DL Normal [address] [facility] ( 000) Comment: Performed By: #### [id number] #### MARCUS [employer] [address] [place] [address] Glucose [Mass/Vol] 133 70-99 mg/dL High 12-03-[address] [facility] (03766) Comment: Performed By: #### [id number] #### MARCUS [employer] [address] [place] [address] Potassium [Moles/Vol] 4.2 3.5-5.3 mEq/L Normal 12-03-[address] [facility] (00 000) Comment: Performed By: #### [id number] #### MARCUS [employer] [address] [place] [address] Protein [Mass/Vol] 6.0 6.4-8.2 gm/dL Low 12-03-[address] [facility] (62003) Comment: Performed By: #### [id number] #### MARCUS JeriBit[facility] [employer] [place] [address] Sodium [Moles/Vol] 140 136-145 mEq/L Normal 12-03-[address] [facility] (00 000) Comment: Performed By: #### [id number] #### MARCUS [place] [place] [place] [address] Urea nitrogen [Mass/Vol] 9 6-23 mg/dL Normal 12-[address] [facility] (00 000) Comment: Performed By: #### [id number] #### MARCUS [address] [place] [address] Urea nitrogen/Creatinine 6.9 5.4-30.0 ratio Normal 12-03 [facility] [Mass ratio] [facility] (67621) Comment: Performed By: #### [id number] #### MARCUS Jeri[address] [address] cbc w/ auto diff on 2018-12-03 Erythrocyte distribution 12.9 11.5-14.5 % Normal 12-03 [facility] width (RBC) [Ratio] Health System (79628) Comment: Performed By: #### [id number] #### MARCUS Wilcox[address] [address] Hematocrit (Bld) [Volume 42.4 36.0-48.0 % Normal 12-03 [facility] fraction] Health Sys tem (34389) Comment: Performed By: #### [id number] #### MARCUSShawn [address] [place] [address] Hemoglobin (Bld) 14.1 12.0-16.0 G/DL Normal 12-03-2018 [facility] [Mass/Vol] Health Sy stem (52014) Comment: Performed By: #### [id number] #### MARCUS [address] [place] [address] MCH (RBC) [Entitic mass] 30.5 27.0-31.0 pg Normal 12-[address] [facility] (00 000) Comment: Performed By: #### [id number] #### MARCUS Zelaya [employer] [place] [address] MCHC (RBC) [Mass/Vol] 33.3 33.0-37.0 G/DL Normal 12-03-[address] [facility] (00 000) Comment: Performed By: #### [id number] #### MARCUS Zelaya [address] [place] [address] MCV (RBC) [Entitic vol] 91.5 78.0-100.0 fL Normal 12-03 [facility] Sys tem (64384) Comment: Performed By: #### [id number] #### MARCUS Zelaya [employer] [place] [address] Platelet mean volume (Bld) 7.2 7.4-11.0 fL Low [facility] [Entitic vol] System (30364) Comment: Performed By: #### [id number] #### MARCUS Wilcox[address] [address] Platelets (Bld) [#/Vol] 121 130-400 E3/mcL Low [address] [facility] (00 000) Comment: Performed By: #### [id number] #### MARCUS Wilcox[address] [address] RBC (Bld) [#/Vol] 4.64 3.90-5.40 E6/mcL Normal 12-03-2018 [facility] (00 000) Comment: Performed By: #### [id number] #### MARC[place] [address] [place] [address] WBC (Bld) [#/Vol] 4.5 3.6-11.0 E3/mcL Normal 12-03-2018 [facility] (00 000) Comment: Performed By: #### [id number] #### MARCUS Zelaya [employer] [place] [address] auto diff on 2019-0 2-16 Basophils (Bld) [#/Vol] 0.0 0.0-0.2 E3/mcL Normal 2018 [facility] Sys tem (94906) Comment: Order Comment: Order added b y Discern Expert. Performed By: #### [id number] #### MARCUS Wilcox[facility] [employer] [place] [address] Basophils/100 WBC (Bld) 0.6 0.0-2.0 % Normal [address] [facility] (00 000) Comment: Order Comment: Order added b y Discern Expert. Performed By: #### [id number] #### MARCUS JeriBitpagos [address] [place] [address] Eos Absolute 0.1 0.0-0.7 E3/mcL Normal 12-03-2018 [facility] (35482) Comment: Order Comment: Order added b y Discern Expert. Performed By: #### [id number] #### [facility] JeriBitpag[employer] [address] [place] [address] Eosinophils/100 WBC (Bld) 2.6 0.0-11.0 % Normal 11-[address] [facility] (00 000) Comment: Order Comment: Order added b y Discern Expert. Performed By: #### [id number] #### [facility] [employer] [address] [place] [address] Lymphocytes (Bld) [#/Vol] 1.2 1.2-3.4 E3/mcL Normal 11-18 [facility] tem (88702) Comment: Order Comment: Order added b y Discern Expert. Performed By: #### [id number] #### MARCUS WilcoxBitpagos [address] [place] [address] Lymphocytes/100 WBC (Bld) 27.2 20.0-55.0 % Normal 11-18 [facility] (99481) Comment: Order Comment: Order added b y Discern Expert. Performed By: #### [id number] #### [facility] [employer] [address] [place] [address] Mclennan Absolute 0.3 0.0-0.7 E3/mcL Normal 12-03-2018 [facility] (28142) Comment: Order Comment: Order added b y Discern Expert. Performed By: #### [id number] #### MARCUS [employer] [place] [address] Monocytes/100 WBC (Bld) 7.7 0.0-10.0 % Normal [address] [facility] (00 000) Comment: Order Comment: Order added erma Aldana Expert. Performed By: #### [id number] #### MARCUS Wil[employer] [address] [place] [id number] Neutro Absolute 2.8 1.4-6.5 E3/mcL Normal 12-03-[address] [facility] (63830) Comment: Order Comment: Order added erma Aldana Expert. Performed By: #### [id number] #### MARCUS Zelaya [address] [place] [id number] Neutro Auto 61.9 37.0-75.0 % Normal 12-03-2018 [facility] (97930) Comment: Order Comment: Order added erma Aldana Expert. Performed By: #### [id number] #### MARCUS Zelaya [address] [place] [address] ct head or brain w/ + w/o contrast on 2018-12-01 CT Head or Brain Exam Date/Time: Normal 019 [facility] w/ + w/o Contrast 12/01/2018 12:05 [facility] Reason for Exam: (00 000) ABN GAIT Report STUDY: CT Head or Brain w/ + w/o Contrast; 12/01/2018 12:05 pm INDICATION: ABN GAIT. COMPARISON: 04/29/2016 ACCESSION NUMBER(S): [id number] ORDERING CLINICIAN: Ana Hodge TECHNIQUE: Axial images [...] Ag IA Final Report: Normal 11-27-19 19 [facility] (Unsp spec) [facility] screen negative (000 00) Comment: Performed By: #### [id number] #### MARCUS [employer] [address] [place] [address] lipid panel on 2018 Cholesterol in HDL mass 43 40-59 mg/dL Normal 2018 [facility] (16436) Comment: Performed By: #### GLUX #### Unless otherwise noted, [facility] [place] [address] CLIA: [id number] Creative Services Designer: Ismael vines M.D. Cholesterol in LDL mass 163 10-150 mg/dL High 2018 [facility] (20259) Comment: Performed By: #### GLUX #### Unless otherwise noted, all testing performed by [facility] [address] [facility] [place] [address] CLIA: [id number] Creative Services Designer: Ismael vines M.D. Cholesterol in VLDL mass 41 5-40 mg/dL High 11-22 [facility] (11600) Comment: Performed By: #### GLUX #### Unless otherwise noted, all testing performed by [facility] [address] [place] [address] CLIA: [id number] Creative Services Designer: Ismael vines M.D. Cholesterol mass conc 247 100-199 mg/dL High 11-22-19 19 [facility] (17706) Comment: Performed By: #### GLUX #### Unless otherwise noted, all testing performed by [facility] [address] [facility]. [place] [address] CLIA: [id number] Creative Services Designer: Ismael vines M.D. Cholesterol.total/Cholesterol in HDL 5.7 3.2-5.0 Hig h 11-22-2018 [facility] mass [facility] (06261) Comment: Result Comment: Female Coron xavier Heart Disease Risk Factor (CHDRF): Average risk= 4.4 1/2 Average risk= 3.3 2 times Average risk= 7.1 Performed By: #### GLUX #### Unless otherwise noted, all testing performed by [facility] [address] [facility]. [place] [address] CLIA: [id number] Creative Services Designer: Ismael vines M.D. Triglyceride mass conc 206 30-150 mg/dL High 019 [facility] (01120) Comment: Performed By: #### GLUX #### Unless otherwise noted, all testing performed by [address] [place] [address] CLIA: [id number] Creative Services Designer: Ismael vines M.D. No panel information on 2018-11-22 Cholesterol in HDL mass conc 43 40 - 59 mg/dL 0 11-22-2018 [facility] (86687) Cholesterol in LDL mass conc 163 10 - 150 mg/dL High 0 11-22-2018 [facility] (06215) Cholesterol in VLDL mass conc 41 5 - 40 mg/dL High 11-22-2018 [facility] (11000) Cholesterol mass conc 247 100 - 199 mg/dL High 11-22-19 19 [facility] (25962) Cholesterol.total/Cholesterol 5.7 OTH - OTH High 11-22-2018 [facility] (12555) in HDL mass ratio Comment: Female Coronary Heart Diseas e Risk Factor (CHDRF): Average risk= 4.4 1/2 Average risk= 3.3 2 times Average risk= 7.1 Interpretation and review Abnormal [facility] (57950) of laboratory results Triglyceride mass conc 206 30 - 150 mg/dL High 019 [facility] (41653) zzplt morph on 2018 Platelet morphology finding ENLARGED Normal [facility] Nom (d) System (00 000) Comment: Performed By: #### [id number] # ### MARCUS [employer] [address] [place] [address] Platelets (Bld) [#/Vol] DECREASED Normal [address] [facility] (00 000) Comment: Performed By: #### [id number] # ### MARCUS [employer] [address] [place] [address] ua complete on 2018 Color (U) Straw Yellow Normal 11-17-[address] [facility] (01563) Comment: Performed By: #### [id number] # ### MARCUS [employer] [address] [place] [address] Glucose (U) [Mass/Vol] Negative Negative mg/dL Normal 019 [facility] Sys tem (23453) Comment: Performed By: #### [id number] # ### MARCUS [employer] [address] [place] [address] Ketones Ql (U) Negative Negative Normal 11-17-2018 [facility] (48851) Comment: Performed By: #### [id number] # ### MARCUS [employer] [address] [place] [address] UA Blood Negative Negative Normal 11-17-[address] [facility] (78402) Comment: Performed By: #### [id number] # ### MARCUS [employer] [address] [place] [address] UA Clarity Clear Clear Normal 11-17-2018 [facility] (44184) Comment: Performed By: #### [id number] # ### MARCUS [employer] [address] [place] [address] UA Leuk Est Negative Negative Normal 11-17-2018 [facility] (99986) Comment: Performed By: #### [id number] # ### MARCUS [employer] [address] [place] [address] UA Nitrite Negative Negative Normal 11-17-2018 [facility] (45703) Comment: Performed By: #### [id number] # ### MARCUS WilcoxChem [address] [place] [address] UA pH 6.0 4.6-8.0 Normal 11-17-[address] [facility] (14030) Comment: Performed By: #### [id number] # ### MARCUS [employer] [address] [place] [address] UA Protein Negative Negative Normal 11-17-2018 [facility] (71612) Comment: Performed By: #### [id number] # ### MARCUS [employer] [address] [place] [address] UA Spec Grav 1.009 1.003-1.030 Normal 11-17-2018 [facility] (98641) Comment: Performed By: #### [id number] # ### MARCUS [employer] [place] [address] UA Squam Epithelial 0-5 0-5 Normal 11-17-[address] [facility] (76167) Comment: Performed By: #### [id number] # ### MARCUS [employer] [address] [place] [address] UA Urobilinogen Negative Normal 11-17-[address] [facility] (35778) Comment: Result Comment: Due to a man ufacturing issue, low positive urobilinogen results may be fasely positi ve. Correlate with urine bilirubin and additional clinical/laborato ry findings to assess the risk of hemolytic anemia or liver disease. If clinically indicated, repeat testing with an alternate method is availabl e by contacting the laboratory within 24 hours. Performed By: #### [id number] # ### MARCUS [employer] [address] [place] [address] UA WBC 0-5 0-5 Normal 11-17-[address] [facility] (67117) Comment: Performed By: #### [id number] # ### MARCUS [employer] [address] [place] [address] Urobilinogen Qn (U) Negative Negative Normal 11-17-2018 [facility] (00 000) Comment: Performed By: #### [id number] # ### MARCUS Zelaya [address] [place] [address] u bhcg qlt on 11-17 HCG.beta subunit Qn Neg Neg m[IU]/mL Normal 11-17-[address] [facility] (00 000) Comment: Performed By: #### [id number] # ### MARCUS Zelaya [employer] [place] [address] morph on 2018-11-17 RBC morphology finding Nom NORMAL Normal [facility] (Bld) System (00 000) Comment: Order Comment: Order Added b y Discern Expert. Performed By: #### [id number] # ### MARCUS Zelaya [employer] [place] [address] lipase level on 201 06-18-31 Lipase Lvl 48 9-82 Int._Unit/L Normal 11-17-2018 [facility] (18698) Comment: Performed By: #### [id number] # ### MARCUS [address] [address] hep func panel on 2 Albumin [Mass/Vol] 3.8 3.4-5.0 gm/dL Normal 11-17-[address] [facility] (00 000) Comment: Performed By: #### [id number] # ### MARCUS [address] [place] [address] Albumin/Globulin [Mass 1.8 1.1-1.9 ratio Normal [address] [place] [address]] Health Sys tem (05145) Comment: Performed By: #### [id number] # ### MARCUS Nathalie [employer] [place] [address] Alk Phos 59 33-110 Int._Unit/L Normal 11-17-2018 [facility] (68326) Comment: Performed By: #### [id number] # ### MARCUS [employer] [address] [place] [address] ALT [Catalytic 18 7-45 Int._Unit/L Normal 11-17-2018 [facility] activity/Vol] Health System (14058) Comment: Performed By: #### [id number] # ### MARCUSShawn WilcoxChem [address] [place] [address] AST [Catalytic 28 9-39 Int._Unit/L Normal 11-17-2018 [facility] activity/[facility] (32370) Comment: Performed By: #### [id number] # ### MARCUS [address] [place] [address] Bili Direct 0.07 0.00-0.30 mg/dL Normal 11-17-2018 [facility] (89070) Comment: Performed By: #### [id number] # ### MARCUS Zelaya [employer] [place] [address] Bili Indirect 0.38 mg/dL Normal 11-17-2018 [facility] (40146) Comment: Result Comment: No establish ed ranges available for the indirect bilirubin Performed By: #### [id number] # ### MARCUSShawn Zelaya [address] [place] [address] Bili Total 0.45 0.00-1.20 mg/dL Normal 11-17-2018 [facility] (41183) Comment: Performed By: #### [id number] # ### MARCUSShawn Zelaya [address] [place] [address] Globulin (S) [Mass/Vol] 2.0 2.0-4.0 G/DL Normal [address] [facility] (00 000) Comment: Performed By: #### [id number] # ### MARCUSShawn Wilcox[address] [address] Protein [Mass/Vol] 5.9 6.4-8.2 gm/dL Low 11-17-[address] [facility] (99772) Comment: Performed By: #### [id number] # ### [facility]Shawn [facility] [address] [place] [address] egfr on 2018-11-17 GFR/1.73 sq M predicted 56 mL/min/1.73 m2 Normal 0 11-17-2018 [facility] among non-blacks MDRD [facility] (17270) (S/P/Bld) [Vol rate/Area] Comment: Order Comment: Order added b y Discern Expert. Performed By: #### [id number] # ### MARC[address]Shawn [address] [place] [address] GFR/1.73 sq M predicted 46 mL/min/1.73 m2 Normal 0 11-17-2018 [facility] among non-blacks [facility] (34957) (S/P/Bld) [Vol rate/Area] Comment: Order Comment: Order added b y Discern Expert. Performed By: #### [id number] # ### MARCUSShawn Zelaya [address] [place] [address] cbc w/ auto diff on 2018-11-17 Erythrocyte distribution 13.2 11.5-14.5 % Normal 11-17 [facility] width (RBC) [Ratio] Health System (63517) Comment: Performed By: #### [id number] # ### MARCUS [employer] [place] [address] Hematocrit (Bld) [Volume 41.0 36.0-48.0 % Normal 11-17 [facility] fraction] Health Sys tem (47799) Comment: Performed By: #### [id number] # ### MARCUS [employer] [place] [address] Hemoglobin (Bld) 13.8 12.0-16.0 G/DL Normal 11-17-2018 [facility] [Mass/Vol] Health Sy stem (95625) Comment: Performed By: #### [id number] # ### MARCUS [employer] [address] [place] [address] MCH (RBC) [Entitic mass] 30.9 27.0-31.0 pg Normal 11-[address] [facility] (00 000) Comment: Performed By: #### [id number] # ### MARCUS [employer] [address] [place] [address] MCHC (RBC) [Mass/Vol] 33.6 33.0-37.0 G/DL Normal 11-17-[address] [facility] (00 000) Comment: Performed By: #### [id number] # ### MARCUS [employer] [address] [place] [address] MCV (RBC) [Entitic vol] 91.9 78.0-100.0 fL Normal 11-17 [facility] Sys tem (78914) Comment: Performed By: #### [id number] # ### MARCUS [employer] [address] [place] [address] Platelet mean volume 7.6 7.4-11.0 fL Normal 9 [facility] (Bld) [Entitic vol] System (17932) Comment: Performed By: #### [id number] # ### MARCUS [employer]ir[employer] [address] [place] [address] Platelets (Bld) [#/Vol] 82 130-400 E3/mcL Low [address] [facility] (00 000) Comment: Performed By: #### [id number] # ### MARCUS [employer] [place] [address] RBC (Bld) [#/Vol] 4.46 3.90-5.40 E6/mcL Normal 11-17-2018 [facility] ( 000) Comment: Performed By: #### [id number] # ### MARCUS WilcoxBitpag[facility] [employer] [place] [address] WBC (Bld) [#/Vol] 4.2 3.6-11.0 E3/mcL Normal 11-17-2018 [facility] ( 000) Comment: Performed By: #### [id number] # ### MARCUS [employer] [place] [address] bmp on 2018-11-17 Anion gap [Moles/Vol] 11 10-20 mEq/L Normal 11-17-[address] [facility] ( 000) Comment: Performed By: #### [id number] # ### MARCUS WilcoxBitpagos [address] [place] [address] Calcium [Mass/Vol] 8.7 8.6-10.3 mg/dL Normal 11-17-[address] [facility] ( 000) Comment: Performed By: #### [id number] # ### MARCUS [employer] [address] [place] [address] Chloride [Moles/Vol] 108 98-107 mEq/L High [address] [facility] ( 000) Comment: Performed By: #### [id number] # ### MARCUS RemBitpagos [address] [place] [address] CO2 [Moles/Vol] 21.0 21.0-32.0 mEq/L Normal 11-17-[address] [facility] (00 000) Comment: Performed By: #### [id number] # ### MARCUS [employer] [address] [place] [address] Creatinine [Mass/Vol] 1.2 0.5-1.1 mg/dL High 11-17-[address] [facility] (00 000) Comment: Performed By: #### [id number] # ### MARCUS [employer] [address] [place] [address] Glucose [Mass/Vol] 103 70-99 mg/dL High 11-17-[address] [facility] (00945) Comment: Performed By: #### [id number] # ### MARCUS [employer] [address] [place] [address] Potassium [Moles/Vol] 3.7 3.5-5.3 mEq/L Normal 11-17-[address] [facility] (00 000) Comment: Performed By: #### [id number] # ### MARCUS [employer] [place] [address] Sodium [Moles/Vol] 136 136-145 mEq/L Normal 11-17-[address] [facility] (00 000) Comment: Performed By: #### [id number] # ### MARCUS [employer] [address] [place] [address] Urea nitrogen [Mass/Vol] 15 6-23 mg/dL Normal 11-[address] [facility] (00 000) Comment: Performed By: #### [id number] # ### MARCUS [employer] [address] [place] [address] Urea nitrogen/Creatinine 12.5 5.4-30.0 ratio Normal 11-17 [facility] [Mass ratio] [facility] (90476) Comment: Performed By: #### [id number] # ### MARCUS [employer] [address] [place] [id number] auto diff on 11-17 Basophils (Bld) [#/Vol] 0.0 0.0-0.2 E3/mcL Normal 2018 [facility] (30282) Comment: Order Comment: Order Added b y Discern Expert. Performed By: #### [id number] # ### MARCUS WilcoxChem [address] [place] [address] Basophils/100 WBC (Bld) 0.3 0.0-2.0 % Normal [address] [facility] (00 000) Comment: Order Comment: Order Added erma Aldana Expert. Performed By: #### [id number] # ### MARCUS WilcoxChem [address] [place] [address] Eos Absolute 0.1 0.0-0.7 E3/mcL Normal 11-17-2018 [facility] (54116) Comment: Order Comment: Order Added b y Discern Expert. Performed By: #### [id number] # ### MARCUS JeriChem [address] [place] [address]245 Eosinophils/100 WBC (Bld) 2.4 0.0-11.0 % Normal 10-[address] [facility] (00 000) Comment: Order Comment: Order Added erma Aldana Expert. Performed By: #### [id number] # ### MARCUS JeriBitpagos [address] [place] [address] 97222 Lymphocytes (Bld) [#/Vol] 1.2 1.2-3.4 E3/mcL Normal 10-20 [facility] tem (77166) Comment: Order Comment: Order Added erma Aldana Expert. Performed By: #### [id number] # ### MARCUS WilcoxChem [address] [place] [address] 58290 Lymphocytes/100 WBC (Bld) 27.6 20.0-55.0 % Normal 10-20 [facility] (51569) Comment: Order Comment: Order Added erma lizama Discern Expert. Performed By: #### [id number] # ### MARCUS RemChem [address] [place] [address] 85287 Mclennan Absolute 0.4 0.0-0.7 E3/mcL Normal 11-17-2018 [facility] (46503) Comment: Order Comment: Order Added b y Discern Expert. Performed By: #### [id number] # ### MARCUS RemChem [address] [place] [address] Monocytes/100 WBC (Bld) 8.8 0.0-10.0 % Normal [address] [facility] (00 000) Comment: Order Comment: Order Added erma Aldana Expert. Performed By: #### [id number] # ### MARCUS Zelaya [employer] [place] [id number] Neutro Absolute 2.5 1.4-6.5 E3/mcL Normal 11-17-[address] [facility] (14388) Comment: Order Comment: Order Added erma Aldana Expert. Performed By: #### [id number] # ### MARCUS Zelaya [address] [place] [address] Neutro Auto 60.4 37.0-75.0 % Normal 11-17-2018 [facility] (80965) Comment: Order Comment: Order Added erma Aldana Expert. Performed By: #### [id number] # ### MARCUS [place] [id number] lab miscellaneous o n 2018-10-28 Status See Ref Lab Report Normal 10-28-[address] [facility] (42849) Comment: Performed By: #### [id number] # ### MARCUS Kostascorky [address] [place], [place] [id number] zzplt morph on 2018 Platelet morphology finding NORMAL Normal [facility] (00 000) Comment: Performed By: #### [id number] # ### MARCUS Kenyoncorky [employer] [place] [id number] Platelets (d) [#/Vol] DECREASED Normal [address] [facility] (00 000) Comment: Performed By: #### [id number] # ### MARCUS Kostascorky [address] [place], [place] [id number] valproic acid on 05-11-08 Valpro Acid Lvl 91 50-100 microgram/mL Normal 10-26-[address] [facility] (00 000) Comment: Performed By: #### [id number] # ### MARCUS Kostaso [address] [place], [place] [id number] manual diff on 2018 Band form neutrophils/100 WBC 1 0-1 Normal 10-26-2018 [facility] (d) System (00 000) Comment: Order Comment: Order Added erma Aldana Expert. Performed By: #### [id number] # ### MARCUS WilcoxHemo [address] [place] [address] Basophil Man 0 0-1 % Normal 10-26-2018 [facility] (81009) Comment: Order Comment: Order Added b dl Discern Expert. Performed By: #### [id number] # ### MARCUS WilcoxHemo [address] [place] [address] Eosinophils/100 WBC (Bld) 3 0-5 % Normal [facility] (21464) Comment: Order Comment: Order Added b y Discern Expert. Performed By: #### [id number] # ### MARCUS WilcoxHemo [address] [place] [address] Lymphocytes/100 WBC (Bld) 37 14-48 % Normal [facility] (00 000) Comment: Order Comment: Order Added b y Discern Expert. Performed By: #### [id number] # ### MARCUS JeriHemo [address] [place] [address] Monocyte Man 8 1-11 % Normal 10-26-2018 [facility] (00077) Comment: Order Comment: Order Added b y Discern Expert. Performed By: #### [id number] # ### MARCUS JeriHemo [address] [place] [address] RBC morphology finding Nom NORMAL Normal [facility] (00 000) Comment: Order Comment: Order Added b y Discern Expert. Performed By: #### [id number] # ### MARCUS JeriHemo [address] [place] [address] Segs Man 51 37-75 % Normal 10-26-[address] [facility] (55044) Comment: Order Comment: Order Added b y Discern Expert. Performed By: #### [id number] # ### MARCUS JeriHemo [address] [place] [address] lab miscellaneous o n 2018-10-26 Test Name topamax Normal 10-26-[address] [facility] (80214) Comment: Performed By: #### [id number] # ### MARCUS JeriHemo [address] [place] [address] egfr on 2018-10-26 GFR/1.73 sq M predicted 45 mL/min/1.73 m2 Normal 0 10-26-2018 [facility] among non-blacks MDRD [facility] (98090) (S/P/Bld) [Vol rate/Area] Comment: Order Comment: Order Added erma y Katya Expert. Performed By: #### [id number] # ### MARCUS Kenyono [employer] [place] [address] GFR/1.73 sq M predicted 37 mL/min/1.73 m2 Normal 0 10-26-2018 [facility] among non-blacks [facility] (65214) (S/P/Bld) [Vol rate/Area] Comment: Order Comment: Order Added erma Aldana Expert. Performed By: #### [id number] # ### MARCUS Kenyon[address] [address] cmp on 2018-10-26 Albumin [Mass/Vol] 4.2 3.4-5.0 gm/dL Normal 10-26-[address] [facility] (00 000) Comment: Performed By: #### [id number] # ### MARCUS Kenyono [address] [place] [address] Albumin/Globulin [Mass 1.6 1.1-1.9 ratio Normal 019 [facility] (66639) Comment: Performed By: #### [id number] # ### MARCUS Kenyono [employer] [place] [address] Alk Phos 66 33-110 Int._Unit/L Normal 10-26-2018 [facility] (37361) Comment: Performed By: #### [id number] # ### MARCUS Kenyono [employer] [place] [address] ALT [Catalytic 22 7-45 Int._Unit/L Normal 10-26-2018 [facility] activity/Vol [facility] (60283) Comment: Performed By: #### [id number] # ### MARCUSShawn WilcoxHemo [employer] [place] [address] Anion gap [Moles/Vol] 12 10-20 mEq/L Normal 10-26-[address] [facility] (00 000) Comment: Performed By: #### [id number] # ### MARCUS WilcoxHemo [address] [place] [address] AST [Catalytic 33 9-39 Int._Unit/L Normal 10-26-2018 [facility] (17247) Comment: Performed By: #### [id number] # ### MARCUS WilcoxHemo [address] [place] [address] Bili Total 0.38 0.00-1.20 mg/dL Normal 10-26-2018 [facility] (12228) Comment: Performed By: #### [id number] # ### MARCUS WilcoxHemo [address] [place] [address] Calcium [Mass/Vol] 9.2 8.6-10.3 mg/dL Normal 10-26-[address] [facility] (00 000) Comment: Performed By: #### [id number] # ### MARCUS WilcoxHemo [employer] [place] [address] Chloride [Moles/Vol] 110 98-107 mEq/L High [facility] () Comment: Performed By: #### [id number] # ### MARCUS WilcoxHemo [address] [place] [address] CO2 [Moles/Vol] 24.0 21.0-32.0 mEq/L Normal 10-26-[address] [facility] (00 000) Comment: Performed By: #### [id number] # ### MARCUS WilcoxHemo [address] [place] [address] Creatinine [Mass/Vol] 1.5 0.5-1.1 mg/dL High 10-26-[address] [facility] (00 000) Comment: Performed By: #### [id number] # ### MARCUS RemHemo [address] [place] [address] Globulin (S) [Mass/Vol] 3.0 2.0-4.0 G/DL Normal [address] [facility] (00 000) Comment: Performed By: #### [id number] # ### MARCUS RemHemo [address] [place] [address] Glucose [Mass/Vol] 97 70-99 mg/dL Normal 10-26-[address] [facility] (20164) Comment: Performed By: #### [id number] # ### MARCUS WilcoxHemo [address] [place] [address] Potassium [Moles/Vol] 4.9 3.5-5.3 mEq/L Normal 10-26-[address] [facility] (00 000) Comment: Performed By: #### [id number] # ### MARCUS WilcoxHemo [address] [place] [address] Protein [Mass/Vol] 6.9 6.4-8.2 gm/dL Normal 10-26-[address] [facility] (00 000) Comment: Performed By: #### [id number] # ### MARCUS WilcoxHemo [employer] [place] [address] Sodium [Moles/Vol] 141 136-145 mEq/L Normal 10-26-[address] [facility] (00 000) Comment: Performed By: #### [id number] # ### MARCUS WilcoxHemo [employer] [place] [address] Urea nitrogen [Mass/Vol] 17 6-23 mg/dL Normal 10-[address] [facility] (00 000) Comment: Performed By: #### [id number] # ### MARCUS WilcoxHemo [address] [place] [address] Urea nitrogen/Creatinine 11.3 5.4-30.0 ratio Normal 10-26 [facility] [Mass ratio] [facility] (95817) Comment: Performed By: #### [id number] # ### MARCUS JeriHemo [employer] [place] [address] cbc w/ auto diff on 2018-10-26 Erythrocyte distribution 13.2 11.5-14.5 % Normal 10-26 [facility] width (RBC) [Ratio] Health System (10910) Comment: Performed By: #### [id number] # ### MARCUS WilcoxHemo [employer] [place] [address] Hematocrit (Bld) [Volume 44.4 36.0-48.0 % Normal 10-26 [facility]] [facility] (94698) Comment: Performed By: #### [id number] # ### MARCUSShawn WilcoxHemo [employer] [place] [address] Hemoglobin (Bld) 14.8 12.0-16.0 G/DL Normal 10-26-2018 [facility] [Mass/Vol] Health Sy stem (05795) Comment: Performed By: #### [id number] # ### MARCUS WilcoxHemo [address] [place] [address] MCH (RBC) [Entitic mass] 30.7 27.0-31.0 pg Normal 10-[address] [facility] (00 000) Comment: Performed By: #### [id number] # ### MARCUS WilcoxHemo [employer] [place] [address] MCHC (RBC) [Mass/Vol] 33.3 33.0-37.0 G/DL Normal 10-26-[address] [facility] () Comment: Performed By: #### [id number] # ### MARCUS WilcoxHemo [employer] [place] [address] MCV (RBC) [Entitic vol] 92.1 78.0-100.0 fL Normal 10-26 [facility] (15689) Comment: Performed By: #### [id number] # ### MARCUS WilcoxHemo [employer] [place] [address] Platelet mean volume 7.8 7.4-11.0 fL Normal 9 [facility] (Bld) [Entitic vol] System (08110) Comment: Performed By: #### [id number] # ### MARCUS RemHemo [employer] [place] [address] Platelets (Bld) [#/Vol] 93 130-400 E3/mcL Low [address] [facility] ( 000) Comment: Performed By: #### [id number] # ### MARCUS RemHemo [address] [place] [address] RBC (Bld) [#/Vol] 4.82 3.90-5.40 E6/mcL Normal 10-26-2018 [facility] (00 000) Comment: Performed By: #### [id number] # ### MARCUS RemHemo [address] [place] [address] WBC (Bld) [#/Vol] 4.7 3.6-11.0 E3/mcL Normal 10-26-2018 [facility] (00 000) Comment: Performed By: #### [id number] # ### MARCUS RemHemo [address] [place] [address] xr spine lumbosacral 2 or 3 views on 2018-10-14 XR Spine Lumbosacral Exam Date/Time: Normal [facility] 2 or 3 Views 10/14/2018 15:28 [facility] Reason for Exam: (00 000) Back pain Report STUDY: XR Spine Lumbosacral 2 or 3 Views; 10/14/2018 3:28 pm INDICATION: Back pain. COMPARISON: 01/21/2017 ACCESSION NUMBER(S): [id number] ORDERING CLINICIAN: Moi De La Cruz FINDINGS: [...] pm Signed by: Bhupinder Berger MD Technologist: [facility] ua complete on 2017 Color (U) Yellow Yellow Normal 10-14-[address] [facility] (13671) Comment: Performed By: #### [id number] # ### MARCUS RemHemo [employer] [place] [address] Glucose (U) [Mass/Vol] Negative Negative mg/dL Normal 018 [facility] (64641) Comment: Performed By: #### [id number] # ### MARCUS RemHemo [address] [place] [address] Ketones Ql (U) Negative Negative Normal 10-14-2018 [facility] (58083) Comment: Performed By: #### [id number] # ### MARCUS RemHemo [employer] [place] [address] RBC (U) [#/Vol] 10-20 0-3 Abnormal 10-14-[address] [facility] (41333) Comment: Performed By: #### [id number] # ### MARCUS WilcoxHemo [address] [place] [address] UA Blood Negative Negative Normal 10-14-[address] [facility] (78813) Comment: Performed By: #### [id number] # ### MARCUS WilcoxHemo [address] [place] [address] UA Clarity Cloudy Clear Abnormal 10-14-2018 [facility] (12891) Comment: Performed By: #### [id number] # ### MARCUS WilcoxHemo [employer] [place] [address] UA Hyal Cast 5-10 0-2 Abnormal 10-14-2018 [facility] (27276) Comment: Performed By: #### [id number] # ### MARCUS WilcoxHemo [employer] [place] [address] UA Leuk Est 3+ Negative Abnormal 10-14-2018 [facility] (40053) Comment: Performed By: #### [id number] # ### MARCUS WilcoxHemo [address] [place] [address] UA Mucous Trace Trace Abnormal 10-14-[address] [facility] (95689) Comment: Performed By: #### [id number] # ### MARCUS WilcoxHemo [address] [place] [address] UA Nitrite Negative Negative Normal 10-14-2018 [facility] (77968) Comment: Performed By: #### [id number] # ### MARCUS WilcoxHemo [address] [place] [address] UA pH 7.0 4.6-8.0 Normal 10-14-[address] [facility] (34163) Comment: Performed By: #### [id number] # ### MARCUS WilcoxHemo [address] [place] [address] UA Protein Negative Negative Normal 10-14-2018 [facility] (87256) Comment: Performed By: #### [id number] # ### MARCUS WilcoxHemo [address] [place] [address] UA Spec Grav 1.016 1.003-1.030 Normal 10-14-2018 [facility] (12712) Comment: Performed By: #### [id number] # ### MARCUS WilcoxHemo [address] [place] [address] UA Squam Epithelial >30 0-5 Abnormal 10-14-[address] [facility] (40833) Comment: Performed By: #### [id number] # ### MARCUS WilcoxHemo [address] [place] [address] UA Urobilinogen Negative Normal 10-14-[address] [facility] (62425) Comment: Result Comment: Due to a man ufacturing issue, low positive urobilinogen results may be fasely positi ve. Correlate with urine bilirubin and additional clinical/laborato ry findings to assess the risk of hemolytic anemia or liver disease. If clinically indicated, repeat testing with an alternate method is availabl e by contacting the laboratory within 24 hours. Performed By: #### [id number] # ### MARCUS WilcoxHemo [address] [place] [address] UA WBC 10-20 0-5 Abnormal 10-14-[address] [facility] (07635) Comment: Performed By: #### [id number] # ### MARCUS WilcoxHemo [address] [place] [address] Urobilinogen Qn (U) Negative Negative Normal 10-14-[address] [facility] (00 000) Comment: Performed By: #### [id number] # ### MARCUS WilcoxHemo [employer] [place] [address] xr chest ap portable on 2018-10-02 XR Chest AP Exam Date/Time: Normal 10-02-2018 [facility] Portable 10/02/2018 11:20 [facility] Reason for Exam: (00 000) Chest pain Report STUDY: XR Chest AP Portable; 10/02/2018 11:20 am INDICATION: Chest pain. COMPARISON: 12/15/2017 ACCESSION NUMBER(S): [id number] ORDERING CLINICIAN: Moi De La Cruz FINDINGS: [...] Troponin I.cardiac <.01 .00-.03 ng/mL Normal 10-02-2018 [facility] [Mass/Vol] [facility] (98278) Comment: Performed By: #### [id number] # ### [facility] JeriNovaforao [employer] [place] [address] Troponin I.cardiac .01 .00-.03 ng/mL Normal 10-02-2018 [facility] [Mass/Vol] [facility] stem (85964) Comment: Performed By: #### [id number] #### [address] [address] ptt on 2018-10-02 aPTT Coag (Bld) 28.3 23.2-36.4 second(s) Normal 10-02-2018 [facility] [Time] [facility] tem (89319) Comment: Performed By: #### [id number] #### MARCUSShawn WilcxoNovaforao [address] [place] [address] ptt control ratio o n 2018-10-02 PTT Ratio 0.9 0.8-1.2 ratio Normal 10-02-[address] [facility] (61965) Comment: Order Comment: Order added b y Discern Expert. Performed By: #### [id number] #### MARCUSShawn WilcoxN[facility]5 [place] [address] pt on 2018-10-02 INR Coag (PPP) [Relative 1.1 1.0-1.2 {INR} Normal 10-02 [facility] tem (41449) Comment: Result Comment: INR Recommen ded Therapeuptic Ranges: Prophylaxis/treatment of DVT and PE?2.0-3.0 Prevention of systemic embol ism?.2.0-3.0 Mechanical prosthetic values ?2.5-3.5 CRITICAL VALUES?.>4.0 Performed By: #### [id number] #### MARCUS [address] [address] [place] [address] PT Coag (PPP) [Time] 13.2 11.6-14.6 second(s) Normal 8 [facility] (80224) Comment: Performed By: #### [id number] #### MARCUS [address] [address] manual diff on 2017 Anisocytosis Ql (Bld) 2+ Normal 10-02-[address] [facility] (59623) Comment: Order Comment: Order Added erma Aldana Expert. Performed By: #### [id number] #### MARCUS [address] [address] Band form neutrophils/100 WBC 6 0-1 High 10-02-2018 [facility] (d) System (00 000) Comment: Order Comment: Order Added erma Aldana Expert. Performed By: #### [id number] #### MARCUS Kenyono [address] [place] [address] Basophil Man 0 0-1 % Normal 10-02-2018 [facility] (07393) Comment: Order Comment: Order Added erma Aldana Expert. Performed By: #### [id number] #### MARCUS Kenyono [address] [place] [address] Eosinophils/100 WBC (Bld) 1 0-5 % Normal 09-[address] [facility] (23524) Comment: Order Comment: Order Added eram Aldana Expert. Performed By: #### [id number] #### [facility]USShawn WilcoxG[facility] Hospital[facility] [address] [place] [address] Lymphocytes/100 WBC (Bld) 37 14-48 % Normal 09-[address] [facility] (00 000) Comment: Order Comment: Order Added b y Discern Expert. Performed By: #### [id number] #### MARCUS WilcoxHemo [address] [place] [address] Langtry Man 3 0-0 % High 10-02-[address] [facility] (91708) Comment: Order Comment: Order Added b y Discern Expert. Performed By: #### [id number] #### MARCUS WilcoxHemo [address] [place] [address] Monocyte Man 10 1-11 % Normal 10-02-2018 [facility] (44034) Comment: Order Comment: Order Added b y Discern Expert. Performed By: #### [id number] #### MARCUSShawn WilcoxHemo [address] [place] [address] Poikilocytosis 1+ Normal 10-02-2018 [facility] (94885) Comment: Order Comment: Order Added b y Discern Expert. Performed By: #### [id number] #### MARCUSShawn WilcoxHemo [employer] [place] 0775205 Polychromasia 1+ Normal 10-02-2018 [facility] (18921) Comment: Order Comment: Order Added b y Discern Expert. Performed By: #### [id number] #### MARCUSShawn WilcoxNovaforao [employer] [place] 0775205 RBC morphology finding SEE MORPHOLOGY Normal [facility] (05520) Comment: Order Comment: Order Added b y Discern Expert. Performed By: #### [id number] #### MARCUSShawn WilcoxHemo [address] [place] [address] Segs Man 43 37-75 % Normal 10-02-[address] [facility] (55205) Comment: Order Comment: Order Added b y Discern Expert. Performed By: #### [id number] #### MARCUSShawn WilcoxNovaforao [employer] [place] [address] magnesium on 2017-10 2-16 Magnesium [Mass/Vol] 1.9 1.6-2.4 mg/dL Normal [address] [facility] (00 000) Comment: Performed By: #### [id number] #### MARCUSShawn WilcoxHemo [address] [place] [address] egfr on 2018-10-02 GFR/1.73 sq M predicted 53 mL/min/1.73 m2 Normal 1 12-03-2017 [facility] among non-blacks [facility] (11019) (S/P/Bld) [Vol rate/Area] Comment: Order Comment: Order added b y Katya Expert. Performed By: #### [id number] #### MARCUS JeriHemo [address] [place] [address] GFR/1.73 sq M predicted 44 mL/min/1.73 m2 Normal 1 12-03-2017 [facility] among non-blacks [facility] (17407) (S/P/Bld) [Vol rate/Area] Comment: Order Comment: Order added b dl Aldana Expert. Performed By: #### [id number] #### MARCUS JeriHemo [employer] [place] [address] cbc w/ auto diff on 2018-10-02 Erythrocyte distribution 13.1 11.5-14.5 % Normal 10-02 [facility] width (RBC) [Ratio] Health System (32346) Comment: Performed By: #### [id number] #### MARCUS RemHemo [address] [place] [address] Hematocrit (Bld) [Volume 40.9 36.0-48.0 % Normal 10-02 [facility] fraction] Health Sys tem (45214) Comment: Performed By: #### [id number] #### MARCUS JeriHemo [address] [place] [address] Hemoglobin (Bld) 13.7 12.0-16.0 G/DL Normal 10-02-2018 [facility] [Mass/Vol] Health [facility] (98940) Comment: Performed By: #### [id number] #### MARCUS RemHemo [address] [place] [address] MCH (RBC) [Entitic mass] 31.0 27.0-31.0 pg Normal 10-02 [facility] (00 000) Comment: Performed By: #### [id number] #### MARCUS RemHemo [address] [place] [address] MCHC (RBC) [Mass/Vol] 33.7 33.0-37.0 G/DL Normal 10-02-[address] [facility] (00 000) Comment: Performed By: #### [id number] #### MARCUS WilcoxHemo [employer] [place] [address] MCV (RBC) [Entitic vol] 92.1 78.0-100.0 fL Normal 10-02 [facility] (46055) Comment: Performed By: #### [id number] #### MARCUS WilcoxHemo [employer] [place] [address] Platelet mean volume 8.4 7.4-11.0 fL Normal [facility] (Bld) [Entitic vol] System (95595) Comment: Performed By: #### [id number] #### MARCUS WilcoxHemo [employer] [place] [address] Platelets (Bld) [#/Vol] 82 130-400 E3/mcL Low [address] [facility] (00 000) Comment: Performed By: #### [id number] #### MARCUSShawn WilcoxHemo [address] [place] [address] RBC (Bld) [#/Vol] 4.44 3.90-5.40 E6/mcL Normal 10-02-2018 [facility] (00 000) Comment: Performed By: #### [id number] #### MARCUSShawn WilcoxHemo [address] [place] [address] WBC (Bld) [#/Vol] 5.3 3.6-11.0 E3/mcL Normal 10-02-2018 [facility] (00 000) Comment: Performed By: #### [id number] #### MARCUSShawn WilcoxHemo [address] [place] [address] bmp on 2018-10-02 Anion gap [Moles/Vol] 9 10-20 mEq/L Low 10-02-[address] [facility] (06190) Comment: Performed By: #### [id number] #### MARCUS [facility] [address] [place] [address] Calcium [Mass/Vol] 8.4 8.6-10.3 mg/dL Low 10-02-[address] [facility] (43094) Comment: Performed By: #### [id number] #### MARCUS WilcoxHemo [address] [place] [address] Chloride [Moles/Vol] 111 98-107 mEq/L High [address] [facility] (00 000) Comment: Performed By: #### [id number] #### MARCUS RemHemo [address] [place] [address] CO2 [Moles/Vol] 22.0 21.0-32.0 mEq/L Normal 10-02-[address] [facility] ( 000) Comment: Performed By: #### [id number] #### MARCUS JeriHemo [employer] [place] [address] Creatinine [Mass/Vol] 1.3 0.5-1.1 mg/dL High 10-02-[address] [facility] (00 000) Comment: Performed By: #### [id number] #### MARCUS RemHemo [employer] [place] [address] Glucose [Mass/Vol] 88 70-99 mg/dL Normal 10-02-[address] [facility] (17146) Comment: Performed By: #### [id number] #### MARCUS JeriHemo [employer] [place] [address] Potassium [Moles/Vol] 4.2 3.5-5.3 mEq/L Normal 10-02-[address] [facility] (00 000) Comment: Performed By: #### [id number] #### MARCUS RemHemo [employer] [place] [address] Sodium [Moles/Vol] 138 136-145 mEq/L Normal 10-02-[address] [facility] ( 000) Comment: Performed By: #### [id number] #### MARCUS RemHemo [address] [place] [address] Urea nitrogen [Mass/Vol] 16 6-23 mg/dL Normal 10-[address] [facility] (00 000) Comment: Performed By: #### [id number] #### MARCUS RemHemo [employer] [place] [address] Urea nitrogen/Creatinine 12.3 5.4-30.0 ratio Normal 10-02 [facility] [Mass ratio] [facility] (55291) Comment: Performed By: #### [id number] #### MARCUS Kenyoncorky [address] [place] [address] .manual abs on 2017 Basophil Abs Man 0.0 0.0-0.2 10x3/ Normal 10-02-2018 [facility] ([id number]) Comment: Order Comment: Order Added erma Aldana Expert. Performed By: #### [id number] #### MARCUSShawn Luong [address] [place] [address] Eos Abs Man 0.1 0.0-0.5 10x3/ Normal 10-02-2018 [facility] (37135) Comment: Order Comment: Order Added erma Aldana Expert. Performed By: #### [id number] #### MARCUS Ag [address] [place] [address] Lymph Abs Man 2.0 1.2-3.4 10x3/ Normal 10-02-2018 [facility] (30314) Comment: Order Comment: Order Added erma Aldana Expert. Performed By: #### [id number] #### MARCUS WilcoxRahul [address] [place] [address] Mclennan Abs Man 0.5 0.0-0.7 10x3/ Normal 10-02-2018 [facility] (76578) Comment: Order Comment: Order Added erma Aldana Expert. Performed By: #### [id number] #### MARCUSShawn Luong [address] [place] [address] Segs Abs Man 2.3 1.4-6.5 10x3/ Normal 10-02-2018 [facility] (45809) Comment: Order Comment: Order Added erma Aldana Expert. Performed By: #### [id number] #### MARCUSShawn Luong [employer] [place] [address] c urine on C Urine Final Report: Moderate Normal 018 [facility] Normal skin joe isolated System (23462) Comment: Performed By: #### [id number] #### MARCUS WilcoxHemo [address] [place] [address] ua complete on 2017 Color (U) Yellow Yellow Normal 09-22-[address] [facility] (10658) Comment: Performed By: #### [id number] #### MARCUS WilcoxHemo [address] [place] [address] Glucose (U) [Mass/Vol] Negative Negative mg/dL Normal 018 [facility] Sys tem (65591) Comment: Performed By: #### [id number] #### MARCUS WilcoxHemo [address] [place] [address] Ketones Ql (U) Negative Negative Normal 09-22-2018 [facility] (22638) Comment: Performed By: #### [id number] #### MARCUS WilcoxHemo [employer] [place] [address] RBC (U) [#/Vol] 20-50 0-3 Abnormal 09-22-[address] [facility] (16591) Comment: Performed By: #### [id number] #### MARCUS WilcoxHemo [employer] [place] [address] UA Blood Negative Negative Normal 09-22-[address] [facility] (18735) Comment: Performed By: #### [id number] #### MARCUS WilcoxHemo [address] [place] [address] UA Bacteria 2+ None /HPF Abnormal 09-22-2018 [facility] (04841) Comment: Performed By: #### [id number] #### MARCUSShawn WilcoxHemo [address] [place] [address] UA Clarity Cloudy Clear Abnormal 09-22-2018 [facility] (01424) Comment: Performed By: #### [id number] #### MARCUS RemHemo [address] [place] [address] UA Leuk Est 3+ Negative Abnormal 09-22-2018 [facility] (17533) Comment: Performed By: #### [id number] #### MARCUSShawn WilcoxHemo [address] [place] [address] UA Mucous Trace Trace Abnormal 09-22-[address] [facility] (03366) Comment: Performed By: #### [id number] #### MARCUS WilcoxHemo [address] [place] [address] UA Nitrite Negative Negative Normal 09-22-2018 [facility] (08549) Comment: Performed By: #### [id number] #### MARCUS Kenyono [employer] [place] [address] UA pH 7.0 4.6-8.0 Normal 09-22-[address] [facility] (35751) Comment: Performed By: #### [id number] #### MARCUS WilcoxHemo [employer] [place] [address] UA Protein Negative Negative Normal 09-22-2018 [facility] (77579) Comment: Performed By: #### [id number] #### MARCUS WilcoxHemo [employer] [place] [address] UA Spec Grav 1.014 1.003-1.030 Normal 09-22-2018 [facility] (25246) Comment: Performed By: #### [id number] #### MARCUS WilcoxHemo [address] [place] [address] UA Squam Epithelial >30 0-5 Abnormal 09-22-[address] [facility] (75228) Comment: Performed By: #### [id number] #### MARCUS WilcoxHemo [address] [place] [address] UA Urobilinogen Negative Normal 09-22-[address] [facility] (57275) Comment: Result Comment: Due to a man ufacturing issue, low positive urobilinogen results may be fasely positi ve. Correlate with urine bilirubin and additional clinical/laborato ry findings to assess the risk of hemolytic anemia or liver disease. If clinically indicated, repeat testing with an alternate method is availabl e by contacting the laboratory within 24 hours. Performed By: #### [id number] #### MARCUS WilcoxHemo [employer] [place] [address] UA WBC 20-50 0-5 Abnormal 09-22-[address] [facility] (43279) Comment: Performed By: #### [id number] #### MARCUS WilcoxHemo [employer] [place] [address] Urobilinogen Qn (U) Negative Negative Normal 09-22-[address] [facility] (00 000) Comment: Performed By: #### [id number] #### MARCUS Kenyono [employer] [place] [address] u bhcg qlt on 09-22 HCG.beta subunit Qn Neg Neg m[IU]/mL Normal 09-22-[address] [facility] (00 000) Comment: Performed By: #### [id number] #### MARCUS Kenyono [employer] [place] [address] lipase level on 201 05-29-06 Lipase Lvl 44 9-82 Int._Unit/L Normal 09-22-2018 [facility] (60673) Comment: Performed By: #### [id number] #### MARCUS Kenyono [employer] [place] [address] hep func panel on 2 Albumin [Mass/Vol] 4.7 3.4-5.0 gm/dL Normal 09-22-[address] [facility] (00 000) Comment: Performed By: #### [id number] #### MARCUS Kostaso [address] [place] [address] Albumin/Globulin [Mass 1.7 1.1-1.9 ratio Normal [address] [place] [address]] Health Sys tem (59412) Comment: Performed By: #### [id number] #### MARCUS Kostaso [employer] [place] [address] Alk Phos 67 33-110 Int._Unit/L Normal 09-22-2018 [facility] (96320) Comment: Performed By: #### [id number] #### MARCUS JeriHemo [employer] [place] [address] ALT [Catalytic 19 7-45 Int._Unit/L Normal 09-22-2018 [facility] activity/Vol] Health System (01800) Comment: Performed By: #### [id number] #### MARCUS JeriHemo [address] [place] [address] AST [Catalytic 31 9-39 Int._Unit/L Normal 09-22-2018 [facility] activity/Vol] Health System (98212) Comment: Performed By: #### [id number] #### MARCUS WilcoxHemo [address] [place] [address] Bili Direct 0.12 0.00-0.30 mg/dL Normal 09-22-2018 [facility] (94049) Comment: Performed By: #### [id number] #### MARCUS WilcoxHemo [address] [place] [address] Bili Indirect 0.53 mg/dL Normal 09-22-2018 [facility] (45549) Comment: Result Comment: No establish ed ranges available for the indirect bilirubin Performed By: #### [id number] #### MARCUS WilcoxHemo [address] [place] [address] Bili Total 0.65 0.00-1.20 mg/dL Normal 09-22-2018 [facility] (83559) Comment: Performed By: #### [id number] #### MARCUS WilcoxHemo [address] [place] [address] Globulin (S) [Mass/Vol] 3.0 2.0-4.0 G/DL Normal [address] [facility] (00 000) Comment: Performed By: #### [id number] #### MARCUS WilcoxHemo [address] [place] [address] Protein [Mass/Vol] 7.4 6.4-8.2 gm/dL Normal 09-22-[address] [facility] (00 000) Comment: Performed By: #### [id number] #### MARCUS WilcoxHemo [address] [place] [address] egfr on 2018-09-22 GFR/1.73 sq M predicted 51 mL/min/1.73 m2 Normal 1 11-23-2017 [facility] among non-blacks [facility] (43693) (S/P/Bld) [Vol rate/Area] Comment: Order Comment: Order Added b y Discern Expert. Performed By: #### [id number] #### MARCUS WilcoxHemo [address] [place] [address] GFR/1.73 sq M predicted 42 mL/min/1.73 m2 Normal 1 11-23-2017 [facility] among non-blacks [facility] (59820) (S/P/Bld) [Vol rate/Area] Comment: Order Comment: Order Added erma Aldana Expert. Performed By: #### [id number] #### MARCUS Ag [address] [place] [address] ct abdomen/pelvis w/o contrast on 2018-09-22 CT Abdomen/Pelvis w/o Exam Date/Time: Normal Sabianist Contrast 09/22/2018 18:11 EST [facility] Reason for Exam: Sys tem ([id number]) Abdominal Pain;Other (please specify) Report STUDY: CT Abdomen/Pelvis w/o Contrast; 09/22/2018 6:11 pm INDICATION: Other (please specify). COMPARISON: CT dated 05/19/2018 ACCESSION NUMBER(S): [id number] ORDERING CLINICIAN: Shilpa Douglas TECHNIQUE: CT of [...] Erythrocyte distribution 13.6 11.5-14.5 % Normal 09-22 [facility] width (RBC) [Ratio] Health System (73540) Comment: Performed By: #### [id number] # ### MARCUS WilcoxHemo [address] [place] [address] Hematocrit (Bld) [Volume 50.0 36.0-48.0 % High 09-22 [facility] fraction] System (00 000) Comment: Performed By: #### [id number] # ### MARCUS WilcoxHemo [employer] [place] [address] Hemoglobin (Bld) 16.9 12.0-16.0 G/DL High 09-22-2018 [facility] [Mass/Vol] [facility] Sy stem (09616) Comment: Performed By: #### [id number] # ### MARCUS WilcoxHemo [employer] [place] [address] MCH (RBC) [Entitic mass] 31.0 27.0-31.0 pg Normal 09-[address] [facility] (00 000) Comment: Performed By: #### [id number] # ### MARCUS RemHemo [employer] [place] [address] MCHC (RBC) [Mass/Vol] 33.8 33.0-37.0 G/DL Normal 09-22-[address] [facility] (00 000) Comment: Performed By: #### [id number] # ### MARCUSShawn WilcoxHemo [employer] [place] [address] MCV (RBC) [Entitic vol] 91.7 78.0-100.0 fL Normal 09-22 [facility] Sys tem (76699) Comment: Performed By: #### [id number] # ### MARCUS RemHemo [address] [place] [address] Platelet mean volume 8.1 7.4-11.0 fL Normal 8 [facility] (Bld) [Entitic vol] System (11108) Comment: Performed By: #### [id number] # ### MARCUS RemHemo [employer] [place] [address] Platelets (Bld) [#/Vol] 123 130-400 E3/mcL Low [address] [facility] () Comment: Performed By: #### [id number] # ### MARCUS WilcoxHemo [address] [place] [address] RBC (Bld) [#/Vol] 5.45 3.90-5.40 E6/mcL High 09-22-2018 [facility] () Comment: Performed By: #### [id number] # ### MARCUS WilcoxHemo [employer] [place] [address] WBC (Bld) [#/Vol] 6.6 3.6-11.0 E3/mcL Normal 09-22-2018 [facility] () Comment: Performed By: #### [id number] # ### MARCUS WilcoxHemo [employer] [place] [address] bmp on 2018-09-22 Anion gap [Moles/Vol] 12 10-20 mEq/L Normal 09-22-[address] [facility] () Comment: Performed By: #### [id number] #### MARCUS WilcoxHemo [employer] [place] [address] Calcium [Mass/Vol] 9.4 8.6-10.3 mg/dL Normal 09-22-[address] [facility] () Comment: Performed By: #### [id number] #### MARCUS WilcoxHemo [employer] [place] [address] Chloride [Moles/Vol] 110 98-107 mEq/L High [facility] () Comment: Performed By: #### [id number] #### MARCUS WilcoxHemo [address] [place] [address] CO2 [Moles/Vol] 22.0 21.0-32.0 mEq/L Normal 09-22-[address] [facility] () Comment: Performed By: #### [id number] #### MARCUS RemHemo [address] [place] [address] Creatinine [Mass/Vol] 1.4 0.5-1.1 mg/dL High 09-22-[address] [facility] () Comment: Performed By: #### [id number] #### MARCUS WilcoxHemo [address] [place] [address] Glucose [Mass/Vol] 93 70-99 mg/dL Normal 09-22-[address] [facility] (90575) Comment: Performed By: #### [id number] #### MARCUS Kenyono [address] [place] [address] Potassium [Moles/Vol] 4.7 3.5-5.3 mEq/L Normal 09-22-[address] [facility] (00 000) Comment: Performed By: #### [id number] #### [facility] [address] [place] [address] Sodium [Moles/Vol] 139 136-145 mEq/L Normal 09-22-[address] [facility] (00 000) Comment: Performed By: #### [id number] #### MARCUS Kenyono [address] [place] [address] Urea nitrogen [Mass/Vol] 15 6-23 mg/dL Normal 09-[address] [facility] (00 000) Comment: Performed By: #### [id number] #### MARCUS Kenyono [address] [place] [address] Urea nitrogen/Creatinine 10.7 5.4-30.0 ratio Normal 09-22 [facility] [Mass ratio] [facility] (42793) Comment: Performed By: #### [id number] #### MARCUS Kenyon[address] [address] auto diff on 2017-10 2 Basophils (Bld) [#/Vol] 0.0 0.0-0.2 E3/mcL Normal 2017 [facility] Sys tem (11657) Comment: Order Comment: Order Added b y Discern Expert. Performed By: #### [id number] #### MARCUSShawn Kenyono [address] [place] [address] Basophils/100 WBC (Bld) 0.4 0.0-2.0 % Normal [address] [facility] (00 000) Comment: Order Comment: Order Added b y Discern Expert. Performed By: #### [id number] #### MARCUS RemHemo [address] [place] [address] [place] [address] Eos Absolute 0.1 0.0-0.7 E3/mcL Normal 09-22-2018 [facility] (47620) Comment: Order Comment: Order Added erma Aldana Expert. Performed By: #### [id number] #### MARCUS WilcoxHemo [address] [place] [address] Eosinophils/100 WBC (Bld) 1.6 0.0-11.0 % Normal [facility] (00 000) Comment: Order Comment: Order Added erma Aldana Expert. Performed By: #### [id number] #### MARCUS RemHemo [address] [place] [address] Lymphocytes (Bld) [#/Vol] 2.0 1.2-3.4 E3/mcL Normal [facility] (56030) Comment: Order Comment: Order Added erma Aldana Expert. Performed By: #### [id number] #### MARCUS WilcoxHemo [address] [place] [address] Lymphocytes/100 WBC (Bld) 30.2 20.0-55.0 % Normal [facility] (93115) Comment: Order Comment: Order Added erma Aldana Expert. Performed By: #### [id number] #### MARCUS RemHemo [address] [place] [address] Mclennan Absolute 0.6 0.0-0.7 E3/mcL Normal 09-22-2018 [facility] (65339) Comment: Order Comment: Order Added erma Aldana Expert. Performed By: #### [id number] #### MARCUS RemHemo [address] [place] [address] Monocytes/100 WBC (Bld) 9.0 0.0-10.0 % Normal [address] [facility] (00 000) Comment: Order Comment: Order Added erma Aldana Expert. Performed By: #### [id number] #### MARCUS RemHemo [address] [place] [address] Neutro Absolute 3.9 1.4-6.5 E3/mcL Normal 09-22-[address] [facility] (79980) Comment: Order Comment: Order Added erma Aldana Expert. Performed By: #### [id number] #### MARCUS RemHemo [address] [place] [address] Neutro Auto 58.8 37.0-75.0 % Normal 09-22-2018 [facility] (55865) Comment: Order Comment: Order Added erma Aldana Expert. Performed By: #### [id number] #### MARCUS RemHemo [address] [place] [address] c urine on C Urine Final Report: Few Mixed skin Normal [address] [facility] (88628) Comment: Performed By: #### [id number] # ### MARCUS Microbiology Subsection [address] [place] [address] ua complete on 2017 Color (U) Yellow Yellow Normal 08-15-[address] [facility] (02556) Comment: Order Comment: Straight Cath as needed Performed By: #### [id number] #### MARCUS Urinalysis Automated Suggs bsection [address] [place] [address] Glucose (U) [Mass/Vol] 1+ Negative Abnormal [address] [facility] (00 000) Comment: Order Comment: Straight Cath as needed Performed By: #### [id number] #### MARCUS Urinalysis Automated [employer] bsection [address] [place] [address] Ketones Ql (U) Negative Negative Normal 08-15-2018 [facility] (31005) Comment: Order Comment: Straight Cath as needed Performed By: #### [id number] #### MARCUS Urinalysis Automated Suggs bsection [address] [place] [address] RBC (U) [#/Vol] 0-3 0-3 Normal 08-15-[address] [facility] (11303) Comment: Order Comment: Straight Cath as needed Performed By: #### [id number] #### MARCUS Urinalysis Automated Suggs bsection [address] [place] [address] UA Blood Negative Negative Normal 08-15-[address] [facility] (41434) Comment: Order Comment: Straight Cath as needed Performed By: #### [id number] #### MARCUS Urinalysis Automated [employer] bsection [address] [place] [address] UA Bacteria Trace None Abnormal 08-15-2018 [facility] (18141) Comment: Order Comment: Straight Cath as needed Performed By: #### [id number] #### MARCUS Urinalysis Automated [employer] bsection [address] [place] [address] UA Clarity SltCloudy Clear Abnormal 08-15-2018 [facility] (68032) Comment: Order Comment: Straight Cath as needed Performed By: #### [id number] #### MARCUS Urinalysis Automated Suggs bsection [address] [place] [address] UA Hyal Cast 0-2 0-2 Normal 08-15-2018 [facility] (79325) Comment: Order Comment: Straight Cath as needed Performed By: #### [id number] #### MARCUS Urinalysis Automated [employer] bsection [address] [place] [address] UA Leuk Est 1+ Negative Abnormal 08-15-2018 [facility] (44385) Comment: Order Comment: Straight Cath as needed Performed By: #### [id number] #### MARCUS Urinalysis Automated [employer]gs bsection [address] [place] [address] UA Mucous Trace Trace Abnormal 08-15-[address] [facility] (56256) Comment: Order Comment: Straight Cath as needed Performed By: #### [id number] #### MARCUS Urinalysis Automated [employer]gs bsection [address] [place] [address] UA Nitrite Negative Negative Normal 08-15-2018 [facility] (20093) Comment: Order Comment: Straight Cath as needed Performed By: #### [id number] #### MARCUS Urinalysis Automated [employer] bsection [address] [place] [address] UA pH 7.0 4.6-8.0 Normal 08-15-[address] [facility] (39733) Comment: Order Comment: Straight Cath as needed Performed By: #### [id number] #### MARCUS Urinalysis Automated [employer] bsection [address] [place] [address] UA Protein Negative Negative Normal 08-15-2018 [facility] (38478) Comment: Order Comment: Straight Cath as needed Performed By: #### [id number] #### MARCUS Urinalysis Automated [employer] bsection [address] [place] [address] UA Spec Grav 1.012 1.003-1.030 Normal 08-15-2018 [facility] (11824) Comment: Order Comment: Straight Cath as needed Performed By: #### [id number] #### MARCUS Urinalysis Automated [employer] bsection [address] [place] [address] UA Squam Epithelial 5-10 0-5 Abnormal 08-15-[address] [facility] (66871) Comment: Order Comment: Straight Cath as needed Performed By: #### [id number] #### MARCUS Urinalysis Automated [employer] bsection [address] [place] [address] UA Urobilinogen Negative Normal 08-15-[address] [facility] (26219) Comment: Order Comment: Straight Cath as needed Performed By: #### [id number] #### MARCUS Urinalysis Automated [employer] bsection [address] [place] [address] UA WBC 10-20 0-5 Abnormal 08-15-[address] [facility] (10459) Comment: Order Comment: Straight Cath as needed Performed By: #### [id number] #### MARCUS Urinalysis Automated Suggs bsection [address] [place] [address] Urobilinogen Qn (U) Negative Negative Normal 08-15-[address] [facility] (00 000) Comment: Order Comment: Straight Cath as needed Performed By: #### [id number] #### MARCUS Urinalysis Automated [employer] bsection [address] [place] [address] zzplt morph on 2017 Platelet morphology finding NORMAL Normal [facility] (d) System (00 000) Comment: Performed By: #### [id number] #### MARCUS RemHemo [address] [place] [address] Platelets (d) [#/Vol] DECREASED Normal [address] [facility] (00 000) Comment: Performed By: #### [id number] #### MARCUS [place] [id number] tsh on 2018-08-14 TSH Qn 2.16 0.30-5.60 mcIU/mL Normal 08-14-[address] [facility] (02804) Comment: Order Comment: With T4fr Ref kurt Performed By: #### [id number] # ### MARCUSShawn WilcoxRobert [place] [id number] morph on 2018-08-14 Anisocytosis Ql (Bld) 1+ Normal 08-14-[address] [facility] (54419) Comment: Order Comment: Order Added b y Discern Expert. Performed By: #### [id number] #### MARCUS [place] [id number] RBC morphology finding SEE MORPHOLOGY Normal [facility] (40364) Comment: Order Comment: Order Added b y Discern Expert. Performed By: #### [id number] #### MARCUS WilcoxDesiree [place] [id number] egfr on 2018-08-14 GFR/1.73 sq M predicted 53 mL/min/1.73 m2 Normal 1 [facility] (51657) (S/P/Bld) [Vol rate/Area] Comment: Order Comment: Order added b y Discern Expert. Performed By: #### [id number] #### MARCUSShwan WilcoxRobert [place] 9093305 GFR/1.73 sq M predicted 44 mL/min/1.73 m2 Normal 1 [facility] among [facility]-blacks [facility] (74551) (S/P/Bld) [Vol rate/Area] Comment: Order Comment: Order added b y Discern Expert. Performed By: #### [id number] #### MARCUSShawn WilcoxRobert [place] [id number] cbc w/ auto diff on 2018-08-14 Erythrocyte distribution 13.2 11.5-14.5 % Normal 08-14 [facility] width (RBC) [Ratio] Health System (54727) Comment: Performed By: #### [id number] # ### MARCUS WilcoxHemo [address] [place] [address] Hematocrit (Bld) [Volume 42.1 36.0-48.0 % Normal 08-14 [facility] Sys tem (10073) Comment: Performed By: #### [id number] # ### MARCUS WilcoxHemo [address] [place] [address] Hemoglobin (Bld) 14.1 12.0-16.0 G/DL Normal 08-14-2018 [facility] [Mass/Vol] Health Sy stem (49812) Comment: Performed By: #### [id number] # ### MARCUSShawn WilcoxHemo [employer] [place] [address] MCH (RBC) [Entitic mass] 30.8 27.0-31.0 pg Normal 08-[address] [facility] (00 000) Comment: Performed By: #### [id number] # ### MARCUSShawn WilcoxHemo [address] [place] [address] MCHC (RBC) [Mass/Vol] 33.5 33.0-37.0 G/DL Normal 08-14-[address] [facility] (00 000) Comment: Performed By: #### [id number] # ### MARCUSShawn WilcoxHemo [address] [place] [address] MCV (RBC) [Entitic vol] 91.7 78.0-100.0 fL Normal 08-14 [facility] Sys tem (93109) Comment: Performed By: #### [id number] # ### MARCUSShawn WilcoxHemo [address] [place] [address] Platelet mean volume 8.8 7.4-11.0 fL Normal 8 [facility] (Bld) [Entitic vol] System (08623) Comment: Performed By: #### [id number] # ### MARCUS [facility] [employer] [place] [address] Platelets (Bld) [#/Vol] 78 130-400 E3/mcL Low [address] [facility] (00 000) Comment: Performed By: #### [id number] # ### MARCUS [facility] [employer] [place] [address] RBC (Bld) [#/Vol] 4.60 3.90-5.40 E6/mcL Normal 08-14-2018 [facility] () Comment: Performed By: #### [id number] # ### MARCUS RemHemo [address] [place] [address] WBC (Bld) [#/Vol] 4.2 3.6-11.0 E3/mcL Normal 08-14-2018 [facility] () Comment: Performed By: #### [id number] # ### MARCUS RemHemo [address] [place] [address] bmp on 2018-08-14 Anion gap [Moles/Vol] 13 10-20 mEq/L Normal 08-14-[address] [facility] () Comment: Performed By: #### [id number] # ### MARCUS [employer]Chem [address] [place] [address] Calcium [Mass/Vol] 8.3 8.6-10.3 mg/dL Low 08-14-[address] [facility] (96836) Comment: Performed By: #### [id number] # ### MARCUS [employer]Chem [address] [place] [address] Chloride [Moles/Vol] 110 98-107 mEq/L High [facility] () Comment: Performed By: #### [id number] # ### MARCUS [employer]Chem [address] [place] [address] CO2 [Moles/Vol] 21.0 21.0-32.0 mEq/L Normal 08-14-[address] [facility] () Comment: Performed By: #### [id number] # ### MARCUS [employer]Chem [address] [place] [address] Creatinine [Mass/Vol] 1.3 0.6-1.3 mg/dL Normal 08-14-[address] [facility] () Comment: Performed By: #### [id number] # ### MARCUS [employer]Chem [address] [place] [address] Glucose [Mass/Vol] 122 70-99 mg/dL High 08-14-[address] [facility] (36638) Comment: Performed By: #### [id number] # ### MARCUS WilcoxChem [address] [place] [address] Potassium [Moles/Vol] 3.3 3.5-5.3 mEq/L Low 08-14-[address] [facility] () Comment: Performed By: #### [id number] # ### MARCUSShawn WilcoxChem [employer] [place] [address] Sodium [Moles/Vol] 141 136-145 mEq/L Normal 08-14-[address] [facility] () Comment: Performed By: #### [id number] # ### MARCUS [employer] [address] [place] [address]25 Urea nitrogen [Mass/Vol] 13 6-23 mg/dL Normal 08-[address] [facility] () Comment: Performed By: #### [id number] # ### MARCUSShawn WilcoxChem [address] [place] [address] 74683 Urea nitrogen/Creatinine 10.0 5.4-30.0 ratio Normal 08-14 [facility] [Mass ratio] [facility] (57854) Comment: Performed By: #### [id number] # ### MARCUSShawn WilcoxChem [address] [place] [address] 92449 auto diff on 2017-10 Basophils (Bld) [#/Vol] 0.0 0.0-0.2 E3/mcL Normal 2017 [facility] (16377) Comment: Order Comment: Order Added b y Discern Expert. Performed By: #### [id number] # ### MARCUS WilcoxHemo [address] [place] [address]202 Basophils/100 WBC (Bld) 0.7 0.0-2.0 % Normal [address] [facility] () Comment: Order Comment: Order Added b y Discern Expert. Performed By: #### [id number] # ### MARCUS WilcoxHemo [employer] [place] [address] Eos Absolute 0.1 0.0-0.7 E3/mcL Normal 08-14-2018 [facility] (28476) Comment: Order Comment: Order Added b y Discern Expert. Performed By: #### [id number] # ### MARCUS RemHemo [address] [place] [address] Eosinophils/100 WBC (Bld) 2.2 0.0-11.0 % Normal 07-[address] [facility] (00 000) Comment: Order Comment: Order Added b y Discern Expert. Performed By: #### [id number] # ### MARCUS RemHemo [address] [place] [address] Lymphocytes (Bld) [#/Vol] 1.4 1.2-3.4 E3/mcL Normal 07-19 [facility] tem (62011) Comment: Order Comment: Order Added b y Discern Expert. Performed By: #### [id number] # ### MARCUS WilcoxHemo [address] [place] [address] 63273 Lymphocytes/100 WBC (Bld) 32.5 20.0-55.0 % Normal 07-19 [facility] tem (77986) Comment: Order Comment: Order Added b y Discern Expert. Performed By: #### [id number] # ### MARCUS RemHemo [address] [place] [address] Mclennan Absolute 0.4 0.0-0.7 E3/mcL Normal 08-14-2018 [facility] (15064) Comment: Order Comment: Order Added b y Discern Expert. Performed By: #### [id number] # ### MARCUS WilcoxHemo [address] [place] [address] 27416 Monocytes/100 WBC (Bld) 9.7 0.0-10.0 % Normal [address] [facility] (00 000) Comment: Order Comment: Order Added b y Discern Expert. Performed By: #### [id number] # ### MARCUS RemHemo [address] [place] [address] Neutro Absolute 2.3 1.4-6.5 E3/mcL Normal 08-14-[address] [facility] (26141) Comment: Order Comment: Order Added b y Discern Expert. Performed By: #### [id number] # ### [facility] RemHemo [address] [place] [address] Neutro Auto 54.9 37.0-75.0 % Normal 08-14-2018 [facility] (28896) Comment: Order Comment: Order Added b y Katya Expert. Performed By: #### [id number] # ### MARCUS WilcoxHemcorky [employer] [place] [address] culture, urine on Culture, Urine Test Name: Culture, Urine Normal 06-16-2018 [facility] Culture Status: [facility] Culture Report: No significant growth. (65484) Micro Source: Urine - clean catch Comment: Performed By: #### GLUX #### Unless otherwise noted, all testing performed by [facility] l [address] [place], [place] [address] CLIA: [id number] Creative Services Designer: Imsael vines M.D. No panel information on 2018-06-16 Bilirubin Ql (U) Negative Negative Invalid 06-16-2018 [facility] Interpretation (4321 5) Code Glucose Ql (U) Negative Normal, Invalid 06-16-2018 [facility] Negative Interpretation (4321 5) mg/dL Code Hemoglobin Test Large Negative Abnormal 06-16-2018 [facility]Health strip Ql (U) (05972) Interpretation and Abnormal Invalid 06-16-2018 [facility] review of Interpretation (4321 5) laboratory results Code Ketones Ql (U) Negative Negative Invalid 06-16-2018 [facility] mg/dL Interpretation (4321 5) Code Leukocyte esterase Small Negative Abnormal 06-16-2018 [facility] Test strip Ql (U) (4 3215) Nitrite Test strip Negative Negative Invalid 06-16-2018 [facility] Ql (U) Interpretation (4321 5) Code pH Test strip (U) 7.5 OTH - OTH [pH] Abnormal 06-16-2018 [facility] (60760) Protein Test strip Trace Negative Abnormal 06-16-2018 [facility] Ql (U) mg/dL (23627) Specific gravity 1.020 OTH - OTH Invalid [facility]-16-[facility] (78668) (U) Code Urobilinogen Test 0.2 <2.0, 0.2, mg/d Invalid 06-16-2018 [facility] strip Qn (U) Normal, L Interpretation (4 3215) Negative, Code 1.0, 2.0, <1.0 cur on 2018-05-15 CUR . MICRO - MicrobiologyPROCEDURE: Normal 05-15-2018 [facility] Urine Culture [*1] ACCESSION: [facility] ([place] (66715) [id number]: Urine, Straight BODY SITE: CatherizedCOLLECTED DATE/TIME: 05/13/2018 22:15 EDT RECEIVED DATE/TIME: 05/14/2018 17:17 EDTSTART DATE/TIME: 05/14/2018 17:17 EDT FREE TEXT SOURCE:PRELIMINARY REPORTSPreliminary Report []Verified Date/Time/Personnel: 05/15/2018 14:09 EDTCulture results pending.Performing Locations*1: This test was performed at: [facility], [address] [place] [address], [address] [place] [address] Comment: Performed By: #### CBC, ADIF F, ANEU ####[place] [address]#### L IP, CMP, GFR ####[place] [address] xr abdomen complete w/decub/erect on 2018-05-14 XR ABDOMEN COMPLETE ORIGINALSupine and Normal 0 05-14-2018 [facility] W/DECUB/ERECT upright views of the [facility] [place] abdomen HISTORY: (00 000) Abdominal pain COMPARISON: [...] on 2018-05-14 Patient Summary Documents Normal 04-18 [facility] ([place] (24558) [facility] edu on Pat Edu Normal 05-14-2018 [facility] ([place] (41083) [facility] note on 2018-05-14 [facility] Note Normal 0 05-14-2018 [facility] ([place] (49267) lip on 2018-05-14 Lipase Level 250 73-393 U/L Normal 05-14-2018 [facility]) (54983) Comment: Performed By: #### CBC, ADIF F, ANEU ####[place] [address]#### L IP, CMP, GFR ####[place] [address] cmp on 2018-05-14 Alanine aminotransferase (ALT) 41 10-35 U/L High 05-14-2018 [facility] ([place] (0000 0) Comment: Performed By: #### CBC, ADIF F, ANEU ####[place] [id number]#### L IP, CMP, GFR ####[place] [address] Albumin 3.4 3.5-5.0 G/dL Low 05-14-2018 [facility] ([place] (53693) Comment: Performed By: #### CBC, ADIF F, ANEU ####[place] [address]#### L IP, CMP, GFR ####[place] [address] Albumin/Globulin Ratio 1.2 1.1-2.5 ratio Normal 018 [facility] ([place] (0000 0) Comment: Performed By: #### CBC, ADIF F, ANEU ####[place] [id number]#### L IP, CMP, GFR ####[place] [address] Alk Phos 56 40-135 U/L Normal 05-14-2018 [facility] ([place] (50921) Comment: Performed By: #### CBC, ADIF F, ANEU ####[place] [address]#### L IP, CMP, GFR ####[place] [address] Aspartate aminotransferase 42 10-40 U/L High [facility] ([place] ([place]) (0000 0) Comment: Performed By: #### CBC, ADIF F, ANEU ####[place] [address]#### L IP, CMP, GFR ####[place] [address] Bili Total 0.5 0.2-1.0 mg/dL Normal 05-14-2018 [facility] ([place] (43663) Comment: Performed By: #### CBC, ADIF F, ANEU ####[place] [address]#### L IP, CMP, GFR ####[place] [address] BUN/Creatinine Ratio 14 7-27 ratio Normal 8 [facility] ([place] (95955) Comment: Performed By: #### CBC, ADIF F, ANEU ####[place] [address]#### L IP, CMP, GFR ####[place] [address] Calcium 8.0 8.4-10.2 mg/dL Low 05-14-2018 [facility] ([place] (84117) Comment: Performed By: #### CBC, ADIF F, ANEU ####[place] [address]#### L IP, CMP, GFR ####[place] [id number] [address] [place] [address] Chloride 104 98-107 mmol/L Normal 05-14-2018 [facility] ([place] (50000) Comment: Performed By: #### CBC, ADIF F, ANEU ####[address] [place], [place] [address]#### L IP, CMP, GFR ####[place] [address] CO2 23 22-29 mmol/L Normal 05-14-2018 [facility] ([place] (40841) Comment: Performed By: #### CBC, ADIF F, ANEU ####[address] [place] [address]#### L IP, CMP, GFR ####[place] [address] Creatinine 1.28 0.55-1.02 mg/dL High 05-14-2018 [facility] ([place] (96366) Comment: Performed By: #### CBC, ADIF F, ANEU ####[address] [place] [place] [address]#### L IP, CMP, GFR ####[place] [address] Electrolyte Balance 9.0 mEq/L Normal 05-14-2018 [facility] ([place] (70882) Comment: Performed By: #### CBC, ADIF F, ANEU ####[address] [place] [place] [phone]#### L IP, CMP, GFR ####[place] [address] Globulin 2.9 G/dL Normal 05-14-2018 [facility] ([place] (38651) Comment: Performed By: #### CBC, ADIF F, ANEU ####[address] [place] [address]347#### L IP, CMP, GFR ####[place] [address] Glucose mass conc 90 70-105 mg/dL Normal 05-14-2018 [facility] ([place] (21676) Comment: Performed By: #### CBC, ADIF F, ANEU ####[address] [place], [place] [address]#### L IP, CMP, GFR ####[address] [address] Potassium molar conc 4.6 3.5-5.1 mmol/L Normal 8 [facility] ([place] (0000 0) Comment: Performed By: #### CBC, ADIF F, ANEU ####[address] [id number]#### L IP, CMP, GFR ####[place] [address] Protein 6.3 6.4-8.2 G/dL Low 05-14-2018 [facility] ([place] (68070) Comment: Performed By: #### CBC, ADIF F, ANEU ####[address] [place] [phone]#### L IP, CMP, GFR ####[place] [address] Sodium 136 136-145 mmol/L Normal 05-14-2018 [facility] ([place] (78742) Comment: Performed By: #### CBC, ADIF F, ANEU ####[place] [id number]#### L IP, CMP, GFR ####[address] [address] Urea nitrogen 18 7-18 mg/dL Normal 05-14-2018 [facility] ([place] (95010) Comment: Performed By: #### CBC, ADIF F, ANEU ####[address] [place] [phone]#### L IP, CMP, GFR ####[address] [address] .gfr on 2018-05-14 GFR Non- 45 ml/min/1.73sqm Normal 05-14-2018 [facility] ([place] (63805) Comment: Result Comment: GFR Populati on mean [...] #### CBC, ADIF F, ANEU ####[address] [place], [place] [address]#### L IP, CMP, GFR ####[place] [id number] [place] [address] GFR 55 ml/min/1.73sqm Normal - [facility] ([place]) (0000 0) Comment: Result Comment: GFR Populati [...] #### CBC, ADIF F, ANEU ####[address] [place], [place] [address]#### L IP, CMP, GFR ####[place] [address] [place] [address] ua on 2018-05-13 UA Appear Slightly Cloudy Clear Invalid Interpretation 0 05-13-2018 [facility] [place] (94454) Comment: Performed By: #### UA, PREGU , UAMICAO ####[address] [place], [place] [address] UA Blood Negative Negative Normal 05-13-2018 [facility] ([place] (27665) Comment: Performed By: #### UA, PREGU , UAMICAO ####[address] [place], [place] [address] UA Leuk Est Small Negative Invalid Interpretation 05-13 [facility] [place] (14610) Comment: Performed By: #### UA, PREGU , UAMICAO ####[address] [place], [place] [address] UA Nitrite Negative Negative Normal 05-13-2018 [facility] ([place] (23150) Comment: Performed By: #### UA, PREGU , UAMICAO ####[address] [place], [place] [address] UA pH 7.5 Normal 05-13-2018 [facility] ([place] (58449) Comment: Performed By: #### UA, PREGU , UAMICAO ####[address] [place], [place] [address] UA Protein Negative Negative Normal 05-13-2018 [facility] ([place] (30481) Comment: Performed By: #### UA, PREGU , UAMICAO ####[address] [place], [place] [address] UA Spec Grav 1.005 Invalid Interpretation Code 05-13-2018 [facility] ([place] (14803) Comment: Performed By: #### UA, PREGU , UAMICAO ####[address] [place], [place] [address] UA Specimen Type Clean Catch Normal 05-13-2018 [facility] ([place] (42900) Comment: Performed By: #### UA, PREGU , UAMICAO ####[address] [place], [place] [address] UA Urobilinogen 0.2 E.U./dL Normal 05-13-2018 [facility] ([place] (08153) Comment: Performed By: #### UA, PREGU , UAMICAO ####[address] [place], [place] [address] Urine, color Yellow Normal 05-13-2018 [facility] ([place] (66312) Comment: Performed By: #### UA, PREGU , UAMICAO ####[address] [place], [place] [address] Urine, glucose Negative Negative mg/dL Normal 05-13-2018 [facility] ([place]) (0000 0) Comment: Performed By: #### UA, PREGU , UAMICAO ####[address] [place], [place] [address] Urine, ketones presence Negative Negative Normal 2017 [facility] ([place] (05345) Comment: Performed By: #### UA, PREGU , UAMICAO ####[address] [place], [place] [address] Urine, Negative Negative {Ayla'U}/dL Normal 05-13-2018 [facility] urobilinogen Foundat ion ([place]) (37581) Comment: Performed By: #### UA, PREGU , UAMICAO ####[address] [place], [place] [address] pregu on 2018-05-13 HCG ( test) Ql (U) Negative Normal [facility] ([place] (0000 0) Comment: Performed By: #### UA, PREGU , UAMICAO ####[address] [place], [place] [address] test HCG not Invalid 05-13-2018 [facility] (u) int detected. Interpretation Code [facility] ([place]) (10049) Comment: Performed By: #### UA, PREGU , UAMICAO ####[address] [place], [place] [address] cbc on 2018-05-13 Erythrocyte distribution 13.9 11.5-14.5 % Normal 05-13 [facility] width Auto Ratio (RBC) [facility] ([place] (04769) Comment: Performed By: #### CBC, ADIF F, ANEU ####[address] [place] [address]#### L IP, CMP, GFR ####[place] [address] Erythrocytes (RBC) 5.57 4.20-5.40 10 6/mcL High 05-13-2018 [facility] ([place] (0000 0) Comment: Performed By: #### CBC, ADIF F, ANEU ####[place] [address]#### L IP, CMP, GFR ####[place] [address] Hematocrit (HCT) 49.2 37.0-47.0 % High 05-13-2018 [facility] ([place]) (64733) Comment: Performed By: #### CBC, ADIF F, ANEU ####[place] [address]#### L IP, CMP, GFR ####[place] [address] Hemoglobin mass conc 17.1 12.0-16.0 G/dL High 8 [facility] ([facility] ([place]) (25366) Comment: Performed By: #### CBC, ADIF F, ANEU ####[place] [address]#### L IP, CMP, GFR ####[place] [address] MCH 30.6 27.0-31.2 pg Normal 05-13-2018 [facility] ([place] (34419) Comment: Performed By: #### CBC, ADIF F, ANEU ####[place] [address]#### L IP, CMP, GFR ####[place] [address] MCHC mass conc (RBC) 34.7 33.0-37.0 G/dL Normal 8 [facility] ([place] (0000 0) Comment: Performed By: #### CBC, ADIF F, ANEU ####[place] [address] [id number]#### L IP, CMP, GFR ####[place] [address] MCV 88.3 80.0-94.0 fL Normal 05-13-2018 [facility] ([place] (61839) Comment: Performed By: #### CBC, ADIF F, ANEU ####[address] [place] [address]#### L IP, CMP, GFR ####[place] [address] Platelet mean volume 8.0 7.4-10.4 fL Normal 8 [facility] ([facility]) ([place]) (0000 0) Comment: Performed By: #### CBC, ADIF F, ANEU ####[place] [address]#### L IP, CMP, GFR ####[place] [address] Platelets 113 130-400 10 3/mcL Low 05-13-2018 [facility] ([place] (25506) Comment: Performed By: #### CBC, ADIF F, ANEU ####[address] [place] [id number]#### L IP, CMP, GFR ####[place] [address] WBC (Leukocytes) 9.10 4.60-10.80 10 3/mcL Normal 05-13-2018 [facility] ([place]) (0000 0) Comment: Performed By: #### CBC, ADIF F, ANEU ####[place] [address]#### L IP, CMP, GFR ####[place] [address] .urinalysis microscopic (ao) on 2018-05-13 UA Bacteria 1+ /hpf Invalid Interpretation Code 05-13-2018 [facility] ([place] (23222) Comment: Performed By: #### UA, PREGU , UAMICAO ####[address] [place], [place] [address] UA Squam LOADED None Seen Invalid 05-13-2018 [facility] Epithelial Interpretation [facility] (21792) Comment: Performed By: #### UA, PREGU , UAMICAO ####[address] [place], [place] [address] UA WBC LOADED None Seen Invalid Interpretation 018 [facility]) (20207) Comment: Performed By: #### UA, PREGU , UAMICAO ####[address] [place], [place] [address] Urine, erythrocytes None Seen None Seen Normal 05-13-2018 [facility]) (0000 0) Comment: Performed By: #### UA, PREGU , UAMICAO ####[place] [address] [place], [place] [address] .neuabs on Neutrophil, Absolute 6.70 2.85-6.16 10 3/mcL High 8 [facility] ([place] (97885) Comment: Performed By: #### CBC, ADIF F, ANEU ####[place] [id number]#### L IP, CMP, GFR ####[address] [address] .auto diff on 05-13 Basophils Auto #/vol 0.00 0.00-0.19 10 3/[facility] Normal 8 [facility] (Bld) [facility]) (46832) Comment: Performed By: #### CBC, ADIF F, ANEU ####[place] [phone]#### L IP, CMP, GFR ####[address] [address] Basophils/100 WBC Auto (d) 0.5 0.0-2.5 % Normal 0 05-13-2018 [facility]) (0000 0) Comment: Performed By: #### CBC, ADIF F, ANEU ####[place] [address]#### L IP, CMP, GFR ####[address] [address] Eosinophils 0.10 0.00-0.40 10 3/mcL Normal 05-13-2018 [facility] ([place] (50936) Comment: Performed By: #### CBC, ADIF F, ANEU ####[place] [place] [address]#### L IP, CMP, GFR ####[place] [address] Eosinophils/100 leukocytes 0.8 0.0-7.0 % Normal [facility] ([place]) (0000 0) Comment: Performed By: #### CBC, ADIF F, ANEU ####[place] [address]#### L IP, CMP, GFR ####[place] [address] Lymphocytes 1.60 0.77-3.85 10 3/[facility] Normal 05-13-2018 [facility] ([place] (53984) Comment: Performed By: #### CBC, ADIF F, ANEU ####[address] [place] [address]#### L IP, CMP, GFR ####[place] [address] Lymphocytes/100 leukocytes 18.0 10.0-50.0 % Normal [facility] ([place]) (61254) Comment: Performed By: #### CBC, ADIF F, ANEU ####[place] [address]#### L IP, CMP, GFR ####[place] [address] Monocytes 0.60 0.15-1.00 10 3/[facility] Normal 05-13-2018 [facility] ([place]) (81511) Comment: Performed By: #### CBC, ADIF F, ANEU ####[address] [place], [place] [address]#### L IP, CMP, GFR ####[address] [address] Monocytes/100 leukocytes 6.8 1.7-13.0 % Normal 05-13 [facility] ([place]) (0000 0) Comment: Performed By: #### CBC, ADIF F, ANEU ####[address] [address]#### L IP, CMP, GFR ####[address] [address] Neutrophils/100 WBC Auto 73.9 37.0-80.0 % Normal 05-13 [facility] (d) [facility] ([place]) (64979) Comment: Performed By: #### CBC, ADIF F, ANEU ####[address] [address]#### L IP, CMP, GFR ####[address] [address] urinalysis, routine on 2018-03-15 Bacteria LM.HPF #/area Few NS;RARE Abnormal [address] [place] [address] and (Urine sed) Irene Derek mora (70560) Comment: Performed By: #### GLUX #### Unless otherwise noted, all testing performed by [facility] l [address] [place] [address] CLIA: [id number] Creative Services Designer: Ismael vines M.D. Bilirubin,Urine Negative NEG;NEGATIVE Normal 03-15-2018 [facility] and Irene Kermit pitals (51777) Comment: Performed By: #### GLUX #### Unless otherwise noted, all testing performed by [facility] l [address] [place] [address] CLIA: [id number] Creative Services Designer: Ismael vines M.D. Blood,Urine Small NEG;NEGATIVE Abnormal 03-15-2018 [facility] (49475) Comment: Performed By: #### GLUX #### Unless otherwise noted, all testing performed by [place] [address] CLIA: [id number] Creative Services Designer: Ismael vines M.D. Character Nom (U) Cloudy Normal 03-15-2018 [facility] (84725) Comment: Performed By: #### GLUX #### Unless otherwise noted, all testing performed by [place] [address] CLIA: [id number] Creative Services Designer: Ismael vines M.D. Color Nom (U) Yellow Normal 03-15-2018 [facility] (99503) Comment: Performed By: #### GLUX #### Unless otherwise noted, all testing performed by [place] [address] CLIA: [id number] Creative Services Designer: Ismael vines M.D. Glucose Ql (U) Negative NEG;NEGATIVE Normal 03-15-2018 [facility] (47494) Comment: Performed By: #### GLUX #### Unless otherwise noted, all testing performed by [place] [address] CLIA: [id number] Creative Services Designer: Ismael vines M.D. Ketone,Urine Negative NEG;NEGATIVE Normal 03-15-2018 [facility] (39809) Comment: Performed By: #### GLUX #### Unless otherwise noted, all testing performed by [facility] [address] [place] [address] CLIA: [id number] Creative Services Designer: Ismael vines M.D. Leuk.Esterase,Urine Large Negative Abnormal 03-15-2018 [facility] (06656) Comment: Performed By: #### GLUX #### Unless otherwise noted, all testing performed by [place] [address] CLIA: [id number] Creative Services Designer: Ismael vines M.D. Nitrite,Urine Negative NEG;NEGATIVE Normal 03-15-2018 [facility] (03832) Comment: Performed By: #### GLUX #### Unless otherwise noted, all testing performed by [place] [address] CLIA: [id number] Creative Services Designer: Ismael vines M.D. pH (U) 5.0 4.5-8.0 [pH] Normal 03-15-2018 [facility] [place] (00986) Comment: Performed By: #### GLUX #### Unless otherwise noted, all testing performed by [place] [address] CLIA: [id number] Creative Services Designer: Ismael vines M.D. Protein mass conc Negative NEG;NEGATIVE mg/dL Normal [address] [place] [address] ([facility] (15140) Comment: Performed By: #### GLUX #### Unless otherwise noted, all testing performed by [facility] [address] [place] [address] CLIA: [id number] Creative Services Designer: Ismael vines M.D. RBC,Urine 8 0-5 /HPF High 03-15-2018 [facility] [place] (67439) Comment: Performed By: #### GLUX #### Unless otherwise noted, all testing performed by [place] [phone] CLIA: [id number] Creative Services Designer: Ismael vines M.D. Specific [place],Urine 1.015 1.003-1.029 Normal 03-15 [facility] (73371) Comment: Performed By: #### GLUX #### Unless otherwise noted, all testing performed by [place] [phone] CLIA: [id number] Creative Services Designer: Ismael vines M.D. Squamous Epithelial 11 0-40 /HPF Normal 03-15-2018 [facility] (86766) Comment: Performed By: #### GLUX #### Unless otherwise noted, all testing performed by [place] [phone] CLIA: [id number] Creative Services Designer: Ismael vines M.D. Urobilinogen,Urine < 2.0 <2 Normal 03-15-2018 [facility] (92344) Comment: Performed By: #### GLUX #### Unless otherwise noted, all testing performed by [place] [phone] CLIA: [id number] Creative Services Designer: Ismael vines M.D. WBC,Urine 46 0-5 /HPF High 03-15-2018 [facility] [place] (53194) Comment: Performed By: #### GLUX #### Unless otherwise noted, all testing performed by [place] [phone] CLIA: [id number] Creative Services Designer: Ismael vines M.D. test,urine qual on 2018-03-15 HCG.beta subunit Negative Negative Normal 03-15-2018 [facility] ( test) [facility] (61057[facility] Comment: Result Comment: Rapid test p rocedural [...] Unless otherwise noted, all testing performed by [facility] l [address] [facility]. [place] [address] CLIA: [id number] Creative Services Designer: Ismael vines M.D. lipase on 2018-02-16 9 Lipase enzyme act/vol 288 73-393 U/L Normal 03-15-20 18 [facility] (65522) Comment: Performed By: #### GLUX #### Unless otherwise noted, all testing performed by [facility] l [address] [facility]. [place] [address] CLIA: [id number] Creative Services Designer: Ismael vines M.D. ed cardiac troponin-i on 2018-03-15 Troponin I.cardiac mass < 15 < 45 ng/mL Normal 2017 [facility] ([id number]) Comment: Result Comment: Elevation of troponin indicates [...] Unless otherwise noted, all testing performed by [facility] [address] [place] [address] CLIA: [id number] Creative Services Designer: Ismael vines M.D. comprehensive metabolic panel on 2018-03-15 Albumin mass conc 3.8 3.2-5.2 g/dL Normal 03-15-2018 [facility] (93911) Comment: Performed By: #### GLUX #### Unless otherwise noted, all testing performed by [facility] [address] [place] [address] CLIA: [id number] Creative Services Designer: Ismael vines M.D. ALP enzyme act/vol 66 40-150 U/L Normal 03-15-2018 [facility] (28176) Comment: Performed By: #### GLUX #### Unless otherwise noted, all testing performed by [facility] [address] [place] [address] CLIA: [id number] Creative Services Designer: Ismael vines M.D. ALT enzyme act/vol 56 14-65 U/L Normal 03-15-2018 [facility] (64388) Comment: Result Comment: This test re sult might be falsely depressed or falsely elevated on samples drawn from patients taking Sulfasalazine and Sulfapyridine. Venipuncture should occur pr ior to taking either of these drugs. Performed By: #### GLUX #### Unless otherwise noted, all testing performed by [facility] [address] [place] [address] CLIA: [id number] Creative Services Designer: Ismael vines M.D. AST enzyme act/vol 51 0-45 U/L High 03-15-2018 [facility] (36665) Comment: Result Comment: This test re sult might be falsely depressed or falsely elevated on samples drawn from patients taking Sulfasalazine and Sulfapyridine. Venipuncture should occur pr ior to taking either of these drugs. Performed By: #### GLUX #### Unless otherwise noted, all testing performed by [place] [phone] CLIA: [id number] Creative Services Designer: Ismael vines M.D. Bilirubin mass conc 0.5 0.3-1.2 mg/dL Normal 03-15-2018 [facility] (16101) Comment: Performed By: #### GLUX #### Unless otherwise noted, all testing performed by [place] [phone] CLIA: [id number] Creative Services Designer: Ismael vines M.D. Calcium mass conc 9.7 8.4-10.2 mg/dL Normal 03-15-2018 [facility] (93057) Comment: Performed By: #### GLUX #### Unless otherwise noted, all testing performed by [place] [phone] CLIA: [id number] Creative Services Designer: Ismael vines M.D. Chloride molar conc 105 98-108 mmol/L Normal 03-15-2018 [facility] (88541) Comment: Performed By: #### GLUX #### Unless otherwise noted, all testing performed by [place] [phone] CLIA: [id number] Creative Services Designer: Ismael vines M.D. CO2 molar conc 26 21-32 mmol/L Normal 03-15-2018 [facility] (30516) Comment: Performed By: #### GLUX #### Unless otherwise noted, all testing performed by [place] [address] CLIA: [id number] Creative Services Designer: Ismael vines M.D. Creatinine mass conc 1.67 0.40-1.10 mg/dL High 8 [facility] (96016) Comment: Performed By: #### GLUX #### Unless otherwise noted, all testing performed by [facility] [address] [place] [address] CLIA: [id number] Creative Services Designer: Ismael vines M.D. GFR/1.73 sq M predicted 40 >60 ml/min/1.73sq.m Low 03-15-2018 [facility] and among blacks [facility] (84291) rate/area (S/P/Bld) Comment: Result Comment: Amer ican GFR Calc Performed By: #### GLUX #### Unless otherwise noted, all testing performed by [facility] l [address] [place] [address] CLIA: [id number] Creative Services Designer: Ismael vines M.D. GFR/1.73 sq M predicted 33 >60 ml/min/1.73sq.m Low 03-15-2018 [facility] among non-blacks [facility] vol rate/area (S/P/Bld) (45504) Comment: Result Comment: Non- GFR Calc eGFR [...] Unless otherwise noted, all testing performed by [facility] l [address] [place] [address] CLIA: [id number] Creative Services Designer: Ismael vines M.D. Glucose mass conc 88 70-99 mg/dL Normal 03-15-2018 [facility] (17606) Comment: Result Comment: This test re sult might be falsely depressed or falsely elevated on samples drawn from patients taking Sulfasalazine and Sulfapyridine. Venipuncture should occur pr ior to taking either of these drugs. Performed By: #### GLUX #### Unless otherwise noted, all testing performed by [facility] [address] [place] [address] CLIA: [id number] Creative Services Designer: Ismael vines M.D. Potassium molar conc 4.4 3.5-5.1 mmol/L Normal 8 [facility] (31991) Comment: Performed By: #### GLUX #### Unless otherwise noted, all testing performed by [facility] [address] [place] [address] CLIA: [id number] Creative Services Designer: Ismael vines M.D. Protein mass conc 7.3 6.0-8.0 g/dL Normal 03-15-2018 [facility] (05285) Comment: Performed By: #### GLUX #### Unless otherwise noted, all testing performed by [facility] [address] [place] [address] CLIA: [id number] Creative Services Designer: Ismael vines M.D. Sodium molar conc 137 135-145 mmol/L Normal 03-15-2018 [facility] (47576) Comment: Performed By: #### GLUX #### Unless otherwise noted, all testing performed by [facility] [address] [place] [address] CLIA: [id number] Creative Services Designer: Ismael vines M.D. Urea nitrogen mass conc 30 8-25 mg/dL High 2017 [facility] (37105) Comment: Performed By: #### GLUX #### Unless otherwise noted, all testing performed by [facility] [address] [place] [address] CLIA: [id number] Creative Services Designer: Ismael vines M.D. cbc with diff on 04-03-29 Basophils #/vol (Bld) 0.1 0-0.2 K/mcL Normal 03-15-20 18 [facility] (56667) Comment: Performed By: #### CBCDIF, E DCTNI, CMET, LIPASE #### Unless otherwise noted, all testing performed by [place] [address] CLIA: [id number] Creative Services Designer: Ismael vines M.D. Basophils/100 WBC (Bld) 1.1 % Normal 2017 [facility] (05433) Comment: Performed By: #### CBCDIF, E DCTNI, CMET, LIPASE #### Unless otherwise noted, all testing performed by [place] [address] CLIA: [id number] Creative Services Designer: Ismael vines M.D. Eosinophils #/vol (Bld) 0.2 0-0.5 K/mcL Normal 2017 [facility] (94699) Comment: Performed By: #### CBCDIF, E DCTNI, CMET, LIPASE #### Unless otherwise noted, all testing performed by [facility] [address] [place] [address] CLIA: [id number] Creative Services Designer: Ismael vines M.D. Eosinophils/100 WBC (Bld) 3.2 % Normal - [facility] (51210) Comment: Performed By: #### CBCDIF, E DCTNI, CMET, LIPASE #### Unless otherwise noted, all testing performed by [facility] [address] [place] [address] CLIA: [id number] Creative Services Designer: Ismael vines M.D. Erythrocyte distribution 13.4 10.0-14.4 % Normal 03-15 [facility] and width [facility] (RBC) [facility] (94622) Comment: Performed By: #### CBCDIF, E DCTNI, CMET, LIPASE #### Unless otherwise noted, all testing performed by [facility] [address] [place] [address] CLIA: [id number] Creative Services Designer: Ismael vines M.D. Hematocrit Volume Fraction 47.8 34.4-44.8 % High [facility] and ([facility]) [facility] (38160) Comment: Performed By: #### CBCDIF, E DCTNI, CMET, LIPASE #### Unless otherwise noted, all testing performed by [facility] [address] [place] [address] CLIA: [id number] Creative Services Designer: Ismael vines M.D. Hemoglobin mass conc 15.7 11.6-15.4 g/dL High 8 [facility] and ([facility]) [facility] (25085) Comment: Performed By: #### CBCDIF, E DCTNI, CMET, LIPASE #### Unless otherwise noted, all testing performed by [facility] [address] [place] [address] CLIA: [id number] Creative Services Designer: Ismael vines M.D. Lymphocytes #/vol (Bld) 1.4 1.0-3.7 K/mcL Normal 2017 [facility] (45683) Comment: Performed By: #### CBCDIF, E DCTNI, CMET, LIPASE #### Unless otherwise noted, all testing performed by [facility] [address] [place] [address] CLIA: [id number] Creative Services Designer: Ismael vines M.D. Lymphocytes/100 WBC (Bld) 24.7 % Normal 02-16 [facility] (01111) Comment: Performed By: #### CBCDIF, E DCTNI, CMET, LIPASE #### Unless otherwise noted, all testing performed by [place] [address] CLIA: [id number] Creative Services Designer: Ismael vines M.D. MCH Entitic mass (RBC) 29.6 27.9-33.9 pg Normal 018 [facility] (50985) Comment: Performed By: ####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 ibuprofen, Naprosyn as well as all the prescription nonsteroidals. Typically we follow individuals with chronic kidney disease a minimum of 2-3 times a year. As the kidney disease progresses we monitor closer. Typically start with a minimum of twice a year lab work and increase to every 3 months if indicated. Referral to a kidney specialist or clinical advisor is obtained with sudden declining kidney function, [...] understand their medications Are you taking any qkil-rfj-lwqpnwq medications or supplements? Patient Response: None Since [...] understand their medications Are you taking any wcfu-sdj-kazfdmh medications or supplements? Patient Response: None Since last being seen in this office, have you seen another healthcare provider? Patient Response: Yes. If yes, where did you see this provider? keysha Nedra Cervantes CNP - 03/01/2019 8:30 AM EDT Subjective Patient ID: Reema Motta is a 43 y.o. female. Patient is here today for transitional care visit. She was admitted to [facility] 02/21/19 anddischarged 02/24/19. She was discharged with dx: CKD, hyperammonemia, polydipsia, resting tremors, and valproic acid toxicity. At this time I do not have any records from [facility]. Patient has continued to have issues [...] until she follows up with neurology in [facility], Dr. Chopra, her apt is 03/16/2019. At this time the only seizure medication she is on is the Keppra. She is also on Lorazepam 1 mg 4x a day to help with tremors and the seizures. Patient is here with her contract administration manager and she states they have an assessment on Wednesday to talk aboutAssisted living. At this time she lives with her cousin and is home alone a lot. It is also causing more stress because of declining relationship with her cousin, they are arguing a lot. contract administration manager is also concerned with patient's medication [...] Medical History: Diagnosis Date ? Acquired thrombocytopenia ([facility]) [facility]/Darren Shaikh ? Acute abdominal pain 11/17/[address] [facility] Stacy ALEXIS,Ac Escobar ? Acute bronchitis 12/21/2018 Info Gained From: [facility] ED report --- Bob Nye MD ? Acute kidney injury (HCC) 05/22/2018 [facility]/Jonatan Chiu DO ? Acute UTI 10/14/2018 [facility]/Moi De La Cruz MD ? Anxiety ? Bronchospasm 12/21/2018 Info Gained From: [facility] ED report --- Bob Nye MD ? Calcaneal spur of right foot 2017 Documented on x-ray ? Chronic kidney disease, stage III (moderate) ([facility]) 2000 ? Congestive heart failure (CHF) ([facility]) [facility]/Darren Shaikh ? Dehydration 12/12/2018 Info Gained From: [facility] ED --- Shilpa Jensen ? Depression ? Epilepsy ([facility]) 08/06/2011 [facility]- Dr. Chopra ? Epilepsy ([facility]) 1993 ? Facet degeneration of lumbar region 10/14/2018 [facility]/Moi De La Cruz MD Mild facet degenerative changes seen in the lower lumbar spine ? Fatty liver [facility]/Joe Mendieta MD Mild fibrofatty changes of the liver ? Fluid collection (edema) in the arms, legs, hands and feet 03/09/2018 Dr valentina Chopra ? Gastritis determined by endoscopy 12/29/2016 Dr. GonzalezLxkfvv-Jhwbgvqbh-tjcwqmsjysval nonbleeding with biopsy ? Hepatic steatosis [facility]/Heidy Jara MD Mild ? Hiatal hernia 12/29/[address] Lobo grade 4 ? Hypercholesterolemia [facility]/Jonatan Chiu DO ? Hypertension 2000 2000-present ? Insomnia [facility]/Darren Shaikh ? Kidney stone [facility]/Darren Shaikh ? Low back pain 10/14/2018 [facility]/Moi De La Cruz MD ? Lung nodule 12/15/2017 0.5 cm pleural based nodule in right middle lobe. Mild linear atelectasis ? Mitral valve prolapse [facility]/Darren Shaikh ? Rectus diastasis [facility]/Heidy Jara MD Present with small wide necked perumbical ventral containing fat. ? Second degree burn of foot 04/23/2018 Right Foot - [facility] ? Seizure (HCC) [facility]/Jono ALEXIS, Saulius ? Sleep apnea ? Stroke (HCC) 2001 mild ? Tremor ? Upper abdominal pain 12/03/2018 Info Gained From: /[facility] E/R Report --- Murray ALEXIS,Ac Escobar Past Surgical History: Procedure Laterality Date ? Conner pH capsule placement 02/01/2017 Dr. Lobo ? BREAST REDUCTION 2000 bilateral ? [facility]-nonperforating gastritis ? ESOPHAGEAL MANOMETRY [...] She had a meeting on Wednesday with Health Promotion Manager and assisted living and they are waiting to hear back to see if she qualifies to live in the [facility]. Tremors: Patient continues to be off of the Valproic acid until she is seen by Neurology in [facility],Dr. Chopra, her apt is 03/16/2019. She has [...] has been having an increase in headaches. Health Promotion Manager is making notes of all of these symptoms so she can let the neurologist know at her apt. The following portions of the patient's history were reviewed and updated as appropriate: allergies,current medications, past family history, past medical history, past social history, past surgical history and problem list. Past Medical History: Diagnosis Date ? Acquired thrombocytopenia ([facility]) [facility]/Darren Shaikh ? Acute kidney injury (HCC) 05/22/2018 [facility]/Jonatan Chiu DO ? Anxiety ? Calcaneal spur of right foot 2017 Documented on x-ray ? Chronic kidney disease, stage III (moderate) ([facility]) 2000 ? Congestive heart failure (CHF) ([facility]) [facility]/Darren Shaikh ? Depression ? Epilepsy ([facility]) 08/06/2011 [facility]- Dr. Chopra ? Epilepsy ([facility]) 1993 ? Facet degeneration of lumbar region 10/14/2018 [facility]/Jono ALEXIS, Moi Mild facet degenerative changes seen in the lower lumbar spine ? Fatty liver [facility]/Joe Mendieta MD Mild fibrofatty changes of the liver ? Fluid collection (edema) in the arms, legs, hands and feet 03/09/2018 Dr valentina Chopra ? Gastritis determined by endoscopy 12/29/2016 Dr. LeeWgleha-Qhiwtpqip-yjsvjmftlxats nonbleeding with biopsy ? Hepatic steatosis [facility]/Heidy Jara MD Mild ? Hiatal hernia 12/29/[address] Lobo grade 4 ? Hypercholesterolemia [facility]/Jonatan Chiu DO ? Hypertension 2001 2001-present ? Insomnia [facility]/Darren Shaikh ? Kidney stone [facility]/Darren Shaikh ? Lung nodule 12/15/2017 0.5 cm pleural based nodule in right middle lobe. Mild linear atelectasis ? Mitral valve prolapse [facility]/Darren Shaikh ? Rectus diastasis [facility]/Heidy Jara MD Present with small wide necked perumbical ventral containing fat. ? Second degree burn of foot 04/23/2018 Right Foot - [facility] ? Sleep apnea ? Stroke (HCC) 2001 mild ? Tremor Past Surgical History: Procedure Laterality Date ? Conner pH capsule placement 02/01/2017 Dr. Lobo ? BREAST REDUCTION 2000 bilateral ? [facility]-nonperforating gastritis ? ESOPHAGEAL MANOMETRY [...] ED/admit notes faxed To Neuro at # [phone] Pre-auth Amandeep Aldrich prior auth. received until [...] AM EDT Transition of Care for Reema oMtta Primary Care Provider Nedra Brewer CNP ? Spoke to Patient Via: Telephone ? Patient was Discharged From [facility] ? Discharge Diagnosis: HTN, anxiety, [...] 03/15/19 to ED stating seizures. Transferred to [facility] observation. Describes turned to change her clothes [...] Seek Emergent Care with EMS/911/ED, When to Brush Holder Inspector and As Directed by MACHINE PAN GREASER/Surgeon/Specialist Additional Information Discussed: Yes Providers/Clinics: Home Health Care Arrangements Initiated: No Follow up with Valentina Chopra MD Specialty: Neurology [address] [place] [address] Future Appointments Date Time Provider Department Center [...] Chest pain at rest Nedra Brewer Pattie [facility] RamiroJaninaCHAYA [address] [place], [place] [address] [place], [place] Phone: [phone] Phone: Fax: Status Reason Specialty Diagnoses / Referred By Referred To Procedures Contact Contact Pending Review Cardiology Diagnoses Chest pain at rest Mattie Hayden Procedures Echocardiogram complete MD Ari[address] [place] [address] Status Reason Specialty Diagnoses / Referred By Referred To Procedures Contact Contact Pending Review Radiology Diagnoses Chest pain at rest Mattie Hayden Procedures NM Myocardial Perfusion Multiple SPECT MD [address]ella [address] [place] [address] Status Reason Specialty Diagnoses / Referred By Contact Refe rred To Contact Procedures Closed Cardiology Diagnoses Essential hypertension Chronic kidney disease, stage III (moderate) (HCC) Chest pain at rest Nedra SanchesnMattieJanina, CHAYA Krishnan MD [address] [place] [address] [place] [address] Phone: Fax: Discharge Instructions Meena Alicea RN [...] Log into your personal health record on [email or web address] and enter M739 in the Education box to learn more about Seizure: Care Instructions. Current as of: March 20, 2018 Content Version: 12.0 ? [id number] [employer]. Care instructions adapted under license by your healthcare professional. If you have questions about a medical condition or this instruction, always ask your healthcare professional. [employer] disclaims any warranty or liability for your [...] BE BASED ON THE PRIMARY CLINICAL RECORDS. [employer] provides no warranty or guarantee of the accuracy or completeness of information in this document. UNRECOGNIZED CONTENT PROVIDED BELOW FOR UNRECOGNIZED SECTION INFORMATION SOURCE DATE CREATED AUTHOR AUTHOR'S ORGANIZATIO N 12/06/2018 [facility] DATE CREATED AUTHOR AUTHOR'S ORGANIZATIO N 04/12/2018 [facility] DATE CREATED AUTHOR AUTHOR'S ORGANIZATIO N 04/12/2018 [facility] DATE CREATED AUTHOR AUTHOR'S ORGANIZATIO N 04/22/2018 [facility] DATE CREATED AUTHOR AUTHOR'S ORGANIZATIO N 05/15/2018 [facility] DATE CREATED AUTHOR AUTHOR'S ORGANIZATIO N 12/25/2018 [facility] DATE CREATED AUTHOR AUTHOR'S ORGANIZATIO N [facility]/2019 [facility] DATE CREATED AUTHOR AUTHOR'S ORGANIZATIO N 07/20/[facility] DATE CREATED AUTHOR AUTHOR'S ORGANIZATIO N 12/02/2019 [facility] DATE CREATED AUTHOR AUTHOR'S ORGANIZATIO N 12/07/2019 [facility] DATE CREATED AUTHOR AUTHOR'S ORGANIZATIO N 08/02/2020 [facility] UNRECOGNIZED CONTENT PROVIDED BELOW FOR UNRECOGNIZED SECTION [...] and allow cool down until at least mcc back to the pre exercise hear rate. [...] and allow cool down until at least mcc back to the pre exercise hear rate. [...] to consider following up with the general retirement specialist.in this encounterAssessment & Plan Note - [...] your blood pressure was elevated at the quality assurance tester's office today because you had not taking your Cardura as the quality assurance tester thought. Your blood pressure has decreased since [...] include nonsteroidals. The nonsteroidal class includes the jfrl-yfg-memefnu medications of Motrin, Advil, Aleve, ibuprofen, Naprosyn as well as all the prescription nonsteroidals. Typically we follow individuals with chronic kidney disease a minimum of 2-3 times a year. As the kidney disease progresses we monitor closer. Typically start with a minimum of twice a year lab work and increase to every 3 months if indicated. Referral to a kidney specialist or clinical advisor is obtained with sudden declining kidney function, [...] been out of bed since arriving at [facility]. She lives with her cousin. She [...] toxicity. She follows with Dr. Gillette from [place]. She was also using Keppra 750 mg [...] to 1000 mg twice a day. 3. Kountze seizure precautions. 4. Monitor frequency alcohol seizures. [...] Portions of this chart was created using [employer] voice recognition software. Occasional wrong-word or sound-like [...] Meena Way RN - 03/16/2019 7:58 [facility] from [place] with X-Ray information with Mattie from [place] per instructions from [facility] [facility] to be scanned into patient's record. Meena Way RN - 03/16/2019 7:41 AM EDTPatikelechi's medications prior to admission are present in the med room in a cooler and need to be reviewed with this nurse and patient. There are reportedly (per patient) medications therein that she is allergic to. Per assistant casino shift manager, admission is not complete Meena Way RN - 03/16/2019 7:39 AM EDTPatikelechi is awake and alert, sitting in bed and able to express her needs. She reports that the tremors she is having at bedside report time are her baseline. No seizure activity reported. She also reports that she will be going to [facility] in [place] soon. documented in this encounter UNRECOGNIZED CONTENT [...] hypertension Chronic kidney disease, stage III (moderate) ([facility]) Chest pain at rest Spring, Mattie Chen, MACHINE PAN GREASER MD Ariella [address] [place], [place] [address] [place] [address] Phone: Fax: Reason Comments Hypertension Sore Throat X 3 days Status Reason Specialty Diagnoses / Referred By Referred To Procedures Contact Contact Pending Review Radiology Diagnoses Chest pain at rest Mattie Hayden Procedures NM Myocardial Perfusion Study Single - Stress Only NM Myocardial Perfusion Multiple SPECT MD [address]ella [address] [place] [address] Reason Comments Transition Of Care Pt reports [...] 03/16/2019 4:18 PM EDTAssociated Order(s): EEG (STANDARD) [facility] EEG Report Reason for EEG: Seizures. [...] IP CONSULT TO NEUROLOGY Neurology Inpatient Consult [facility] 03/16/2019 Patient: Reema Motta Date of : 1975 (43 y.o.) Referring Provider: Refer to consult order in electronic medical record PCP: Nedra Brewer CNP ASSESSMENT: 43 y.o. female presented to [facility] on 03/16/2019 with seizures. PLAN: Seizure [...] toxicity. She follows with Dr. Gillette from [place]. She was also using Keppra 750 mg [...] to 1000 mg twice a day. 3. Kountze seizure precautions. 4. Monitor frequency alcohol seizures. [...] Portions of this chart was created using [employer] voice recognition software. Occasional wrong-word or sound-like [...] This occurred after she was discharged from [facility] where her Depakote was discontinued because [...] Medical History: Diagnosis Date ? Acquired thrombocytopenia ([facility]) [facility]/Darren Shaikh ? Acute kidney injury ([facility]) 05/22/2018 [facility]/Jonatan Chiu DO ? Anxiety ? Calcaneal spur of right foot 2017 Documented on x-ray ? Chronic kidney disease, stage III (moderate) ([facility]) 2000 ? Congestive heart failure (CHF) ([facility]) [facility]/Darren Shaikh ? Depression ? Epilepsy ([facility]) 08/06/2011 [facility]- Dr. Chopra ? Epilepsy ([facility]) 1993 ? Facet degeneration of lumbar region 10/14/2018 [facility]/Jono ALEXIS, Saulius Mild facet degenerative changes seen in the lower lumbar spine ? Fatty liver [facility]/Joe Mendieta MD Mild fibrofatty changes of the liver ? Fluid collection (edema) in the arms, legs, hands and feet 03/09/2018 Dr valentina Chopra ? Gastritis determined by endoscopy 12/29/2016 Dr. GonzalezEekubu-Xfocrfzwu-ccunzpculzsjk nonbleeding with biopsy ? Hepatic steatosis [facility]/Heidy Jara MD Mild ? Hiatal hernia 12/29/[address] Lobo grade 4 ? Hypercholesterolemia [facility]/Jonatan Cihu DO ? Hypertension 2000 2000-present ? Insomnia [facility]/Darren Shaikh ? Kidney stone [facility]/Darren Shaikh ? Lung nodule 12/15/2017 0.5 cm pleural based nodule in right middle lobe. Mild linear atelectasis ? Mitral valve prolapse [facility]/Darren Shaikh ? Motor seizure ([facility]) 03/16/2019 INFO GAINED FROM: [facility] LOZANO DO,CAREN ? Rectus diastasis [facility]/Heidy Jara MD Present with small wide necked perumbical ventral containing fat. ? Second degree burn of foot 04/23/2018 Right Foot - [facility] ? Sleep apnea ? Stroke (HCC) 2001 mild ? Tremor Past Surgical History: Procedure Laterality Date ? Conner pH capsule placement 02/01/2017 Dr. Lobo ? BREAST REDUCTION 2000 bilateral ? EGD 12/29/2016 Dr. Lobo[facility]-grade 4 hiatal hernia-nonperforating gastritis ? ESOPHAGEAL MANOMETRY [...] file Gets together: Not on file Attends jew service: Not on file Active member of [...] Oral Daily ? venlafaxine 37.5 mg Oral [facility] PRN Medications: senna OBJECTIVE: Physical Examination: BP 138/79 Pulse 73 Temp 98.6 ?F (37 ?C) (Oral) Resp 14 Ht 4' 8 Wt 68.5 kg (151 lb) VzB854% BMI 33.85 kg/m? Patient is awake and [...]
== END 2020-03-24 01:31 | disposition skilled nursing facility (03) ==
PROVIDERS: Emergency Provider Emergency Medicine
DX: S90.31XA Contusion of right foot, initial encounter (principal); S90.32XA Contusion of left foot, initial encounter; I10 Essential (primary) hypertension; E78.5 Hyperlipidemia, unspecified; G40.909 Epilepsy, unspecified, not intractable, without status epilepticus; Z99.3 Dependence on wheelchair; W22.8XXA Striking against or struck by other objects, initial encounter; Y93.I9 Activity, other involving external motion; Y92.000 Kitchen of unspecified non-institutional (private) residence as the place of occurrence of the external cause; Y99.8 Other external cause status
CPT/HCPCS: 73630; 99284

== ENCOUNTER 2020-03-29 13:00 | Emergency (ER) | payer MEDICAID, SELFPAY ==
[2020-03-29 13:02] VITALS: BP 145/82; PULSE 80; RESP 16; TEMP 37.1; O2SAT 97; BMI 39.2
--- NOTE | 2020-03-29 13:15 | EKG12_ITS ---
Test Reason : CP Blood Pressure : / mmHG Vent. Rate : 083 BPM Atrial Rate : 083 BPM P-R Int : 138 ms QRS Dur : 080 ms QT Int : 380 ms P-R-T Axes : 059 051 059 degrees QTc Int : 446 ms Normal sinus rhythm Normal ECG Confirmed by JUAN ALEXIS, SHREYA ([id number]), supervising editor news reel JERMAINE BIRMINGHAM ([id number]) on 04/03/2020 1:00:30 PM Referred By: MILLY Confirmed By:SHREYA MARTINEZ MD
--- NOTE | 2020-03-29 13:18 | ED.VISSUMM ---
- ER Visit Summary Date of Service: 03/29/20 Chief Complaint: Midsternal chest pain History of Present Illness: The patient is a 44 F history of thrombocytopenia, hypertension, renal insufficiency she states she was told she had a stroke around age 25. She cannot be very specific about that history. States just after midnight may be around 1 AM she started a midsternal chest pain. Not associated with exertion. She was lying in bed when he came on. He is never had a DVT or PE. No recent travel or surgery. No leg pain or swelling. The pain is not pleuritic. Does not change with movement. She denies any shortness of breath. No fever or chills. She denies any nausea or vomiting. She denies any known history of cardiac disease. Physical Examination: White female no acute distress lying in bed. Vital signs are stable afebrile. Her pulse ox is 90% on room air no signs of hypoxia. H EENT exam unremarkable. Neck nontender no JVD. Lungs clear to auscultation bilaterally. Heart regular rate and rhythm rate about 80 no murmur. She does have reproducible chest wall pain of her sternum and parasternal area. There is no signs of trauma. No ecchymosis or bruising. No redness or warmth. No crepitance or subcu air. Abdomen is soft nontender normal bowel sounds no peritoneal signs. She is moving all 4 extremities. Calves are nontender without edema or cords. Neurologically she is awake alert with no focal motor deficits. Test Results: CBC shows a hemoglobin of 14. Platelets are low at 86 which is her baseline thrombocytopenia. Chemistries unremarkable except for creatinine 1.2. Troponin normal. EKG shows a normal sinus rhythm rate 83 with no acute signs of SC or ischemia. No dysrhythmia. Portable chest x-ray 1 view read by myself shows no acute abnormality. Emergency Department Course and Treatment: Patient with at rest midsternal chest discomfort that has some reproducibility to it. Not associated with exertion. Non-smoker. Denies any leg pain or swelling and has no DVT or PE risk factors. Treatment Plan: Repeat exam patient is doing well at 2:02 PM. She will be discharged home. She had more than an hours of chest pain. I do not feel this is cardiac. Comes with her being discharged. Disposition: Discharge Impression: Acute chest pain Chest wall pain This note was generated with [employer] dictation software. It may contain incorrect words, spelling, and punctuation that were not noted in review of the chart prior to signing ED Disposition - Plan for ED Patient: Referrals: Care Physician,No Primary [Primary Care Provider] -
[2020-03-29 13:30] LABS: Absolute Lymphocyte Count 0.85 X10^3/uL (0.83-4.51); Absolute Neutrophil Count 3.2 X10^3/uL (2.0-7.7); Basophil# 0.01 X10^3/uL; Basophil% 0.2 % (0-1); Eosinophil# 0.04 X10^3/uL; Eosinophils% 0.9 % (0-5); Hematocrit 42.7 % (37-47); Hemoglobin 14.4 g/dL (12.0-15.0); Lymphocyte # 0.85 X10^3/ul (4.0); Lymphocyte % 18.9 % (19-41); Mean Corp Hgb Conc 33.7 g/dL (32-36); Mean Platelet Vol. 10.1 fl (6.2-12.0); Monocyte# 0.34 X10^3/uL; Monocyte% 7.6 % (0-10); NRBC Flagged by Analyzer 0 % (0-5); Neutrophil # 3.18 X10^3/uL (2.7-7.7); Neutrophil % 70.8 % (47-70); POSITIVE COUNT YES; Platelet Count 86 K/mm3 (150-450); RBC Distribution Width CV 13.2 % (11.6-14.6); RBC Distribution Width SD 43.2 fl (35.1-43.9); Red Blood Count 4.64 M/mm3 (4.2-5.4); White Blood Count 4.5 K/mm3 (4.4-11.0)
--- NOTE | 2020-03-29 13:34 | RAD_ITS ---
STUDY: X-RAY CHEST REASON FOR EXAM: Female, 44 years old. COUGH, SOB, CHILLS, SENSE OF TASTE HAS CHANGED, FATIGUE, AND SORE THROAT. TECHNIQUE: Single AP portable view of the chest. COMPARISON: Comparison is made with prior study dated August 01, 2016. FINDINGS: EKG electrodes are seen. The lungs are clear and expanded. There is no demonstrated pleural abnormality. Normal size heart. Normal mediastinum and sully. Normal visualized pulmonary arteries. Normal visualized aortic arch and descending thoracic aorta. Normal visualized thoracic spine. Normal visualized ribs, clavicles, and shoulders. A metallic ringlike density is seen overlying the gastroesophageal junction. This may represent prior hiatal hernia repair. RAD/Chest 1 View (Portable) IMPRESSION: Normal x-ray examination of the chest. Electronically Signed: Son Hernandez, at 14:03 EDT , Service support ,
[2020-03-29 13:45] LABS: Anion Gap 7 (5-15); BUN 11 mg/dL (7-18); BUN/Creat Ratio 9.1 RATIO (10-20); Calcium,Total 9.1 mg/dL (8.5-10.1); Chloride 103 mmol/L (98-107); Creatinine, Serum 1.21 mg/dL (0.55-1.02); EST Glomerular Filtration Rate 51 mL/min (>60); Est Glom Filt Rate - Afr Amer 62 mL/min (>60); Estimated Creatinine Clearance 72.82 ml/min; Glucose 94 mg/dL (74-106); Potassium 3.8 mmol/L (3.5-5.1); Sodium Level 140 mmol/L (136-145)
[2020-03-29 14:04] VITALS: BP 118/85; PULSE 82; RESP 15; O2SAT 97
--- NOTE | 2020-03-29 14:04 | ED.DEP ---
ED Disposition - Plan for ED Patient: Disposition: Home or Assisted Living Instructions: ED CHEST PAIN [place] Referrals: Care Physician,No Primary [Primary Care Provider] - 3-5 Days Additional Instructions: Her chest pain appears to be chest wall pain. Ice to chest wall. Tylenol and Motrin for pain and inflammation. This should progressively start improving if not follow-up. If you feel a lot worse return to the emergency department. However your labs today, chest x-ray and EKG were unremarkable.
[2020-03-29 14:35] VITALS: BP 112/78; PULSE 69; RESP 16; O2SAT 98
--- OUTSIDE RECORDS SUMMARY | 2020-08-04 12:40 | XMS RPT_ITS | CCD ---
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 Comment: Performed By: #### MDIFF ### [address] [address] LYMPHOCYTE 2.81 1.20 - 4.80 x10E9/L Normal 10-25-2019 [facility] (82738) Comment: Performed By: #### MDIFF ### [address] [address] Lymphocytes/100 WBC (Bld) 37.0 13.0 - 44.0 % Normal [facility] (00 000) Comment: Performed By: #### IFF ### [address] [address] Metamyelocytes/100 WBC 0.08 0.00 - 0.00 x10E9/L Abnormal 10-25 [facility] (Bld) [facility] (93364) Comment: Performed By: #### MDIFF ### [address] [address] MONOCYTE 0.46 0.10 - 1.00 x10E9/L Normal 10-25-2019 [facility] (72117) Comment: Performed By: #### MDIFF ### [address] [address] Monocytes/100 WBC (Bld) 6.0 2.0 - 10.0 % Normal 10-25 [facility] (16134) Comment: Performed By: #### MDIFF ### [address] [address] SEG NEUTROPHIL 3.57 1.20 - 7.00 x10E9/L Normal 10-25-2019 [facility] (25884) Comment: Performed By: #### MDIFF ### [address] [address] lipase on 8 Lipase [Catalytic 39 9 - 82 U/L Normal 10-25-2019 [facility] (31367) Comment: Result Comment: Venipuncture immediately after or during the administration of Metamizole may lead to falsely low results. Testing should be performed immediately prior to Metamizole dosing. Z-iccznz-m-benzoquinone imin e (metabolite of Acetaminophen) will generate erroneously lo w results in samples for patients that have taken toxic doses of acetaminophen. Performed By: #### LIPAS ### [address] [address] hcg,beta-quant on 2 HCG,BETA-QUANT <2 Normal 10-25-2019 [facility] (36829) Comment: Result Comment: Low-level po sitive HCG [...] usi ng a different test methodology at [facility] than other legacy [facility]. Direct result comparison should only be made within t he same method. REF VALUES NON FEMALE <5 MALES <5 Performed By: #### HCGQU ### [address] [address] comprehensive panel on 2019-10-25 Albumin [Mass/Vol] 4.1 3.4 - 5.0 g/dL Normal 10-25-2019 [facility] (45338) Comment: Performed By: #### CMP ####[address] [place] [id number] ALP [Catalytic activity/Vol] 56 33 - 110 U/L Normal 0 10-25-2019 [facility] (00 000) Comment: Performed By: #### CMP ####[address] [address] ALT [Catalytic activity/Vol] 23 7 - 45 U/L Normal 0 10-25-2019 [facility] (00 000) Comment: Result Comment: Patients graciela ated with Sulfasalazine may generate falsely decreased results fo r ALT. Performed By: #### CMP ####[address] [address] Anion gap [Moles/Vol] 14 10 - 20 mmol/L Normal 10-25-19 [facility] (34604) Comment: Performed By: #### CMP ####S [address] [address] AST [Catalytic activity/Vol] 24 9 - 39 U/L Normal 0 10-25-2019 [facility] (00 000) Comment: Performed By: #### CMP ####S [address] [address] Bilirubin [Mass/Vol] 0.4 0.0 - 1.2 mg/dL Normal 0 [facility] (40536) Comment: Performed By: #### CMP ####S [address] [address] Calcium [Mass/Vol] 8.7 8.6 - 10.3 mg/dL Normal 10-25-2019 [facility] (38658) Comment: Performed By: #### CMP ####[address] [address] Chloride [Moles/Vol] 100 98 - 107 mmol/L Normal 0 [facility] (59738) Comment: Performed By: #### CMP ####[address] [address] Creatinine [Mass/Vol] 1.23 0.50 - 1.05 mg/dL High 2019 [facility] (00 000) Comment: Performed By: #### CMP ####[address] [address] GFR- AM. 57 >60 mL/min/1.73m2 Abnormal 10-25-2019 [facility] (99608) Comment: Result Comment: CALCULATIONS OF ESTIMATED GFR ARE PERFORMED USING THE MDRD STUDY EQUATIO N FOR THE IDMS-TRACEABLE CREATININE ME THODS. CLIN CHEM 2007;53:766-72 Performed By: #### CMP ####[address] [address] GFR-NON AM. 47 >60 mL/min/1.73m2 Abnormal 2019 [facility] (00 000) Comment: Performed By: #### CMP ####[address] [address] Glucose [Mass/Vol] 96 74 - 99 mg/dL Normal 10-25-2019 [facility] (53284) Comment: Performed By: #### CMP ####[address] [address] HCO3 (Bld) [Moles/Vol] 28 21 - 32 mmol/L Normal 020 [facility] (45475) Comment: Performed By: #### CMP ####[address] [address] Potassium [Moles/Vol] 3.7 3.5 - 5.3 mmol/L Normal 10-25-19 20 [facility] (00 000) Comment: Performed By: #### CMP ####[address] [address] Protein [Mass/Vol] 6.3 6.4 - 8.2 g/dL Low 10-25-2019 [facility] (62136) Comment: Performed By: #### CMP ####[address] [address] Sodium [Moles/Vol] 138 136 - 145 mmol/L Normal 10-25-2019 [facility] (10898) Comment: Performed By: #### CMP ####[address] [address] Urea nitrogen [Mass/Vol] 12 6 - 23 mg/dL Normal 10-25 [facility] (06971) Comment: Performed By: #### CMP ####[address] [address] clinical intervention - pharmacy on 2019-10-25 Clinical Pharmacist's Clinical Intervention: Norm al 10-25-2019 [facility] Intervention - Active and Pending Medications: [facility] Morphine Injectable, DOSE = 4 mg IntraVenous Push Once, 25-Oct-2019, Active (22800) Pharmacist intervention: Contacted nurse Type of recommendation: [...] minutes Electronic Signatures: Odilia Holcomb ([facility]) (Signed 25-Oct-2019 14:15) Authored: Pharmacist's Clinical Intervention Last Updated: 25-Oct-2019 14:15 by Odilia Holcomb ([facility]) chest 1 view on CHEST 1 VIEW Normal 10-25-2019 [facility]: [facility]: CHEST 1 VIEW; 10/25/2019 2:12 pm INDICATION: shorntess of breath. COMPARISON: 03/22/2019 ACCESSION NUMBER(S): [id number] ORDERING CLINICIAN: TENISHA LANE FINDINGS: CHEST AP [...] distribution 14.0 11.5 - 14.5 % Normal [facility] width (RBC) [Ratio] Health (35483) Comment: Performed By: #### CBCDF ### [address] [address] Hematocrit (Bld) [Volume 41.2 36.0 - 46.0 % Normal [facility] fraction] Health (00 000) Comment: Performed By: #### CBCDF ### [address] [address] Hemoglobin (Bld) 14.0 12.0 - 16.0 g/dL Normal 10-25-2019 [facility] [Mass/Vol] Health (0 0000) Comment: Performed By: #### CBCDF ### [address] [address] MCHC (RBC) [Mass/Vol] 33.9 32.0 - 36.0 g/dL Normal 2019 [facility] (00 000) Comment: Performed By: #### CBCDF ### [address] [address] MCV (RBC) [Entitic vol] 91 80 - 100 fL Normal 2019 [facility] (49984) Comment: Performed By: #### CBCDF ### [address] [address] Nucleated RBC/100 WBC 0.1 /100 WBC Normal 10-25-19 [facility] (Bld) [Ratio] (31100 ) Comment: Performed By: #### CBCDF ### [address] [address] Platelets (Bld) [#/Vol] 103 150 - 450 x10E9/L Low 2019 [facility] (00 000) Comment: Performed By: #### CBCDF ### [address] [address] RBC (Bld) [#/Vol] 4.55 4.00 - 5.20 x10E12/L Normal 10-25-2019 [facility] (00 000) Comment: Performed By: #### CBCDF ### [address] [address] WBC (Bld) [#/Vol] 7.6 4.4 - 11.3 x10E9/L Normal 10-25-2019 [facility] (43460) Comment: Performed By: #### CBCDF ### [address] [address] DIFFERENTIAL SEE MANUAL DIFF Normal 10-25-2019 [facility] (24649) Comment: Performed By: #### CBCDF ### [address] [address] healthcare applications analyst - procedure visit on 2019-09-25 GRAIN WEIGHER - Chief Complaint Normal 09-25-2019 [facility] Procedure Visit (000 00) PT HERE TODAY FOR IUD REMOVAL AND INSERTION OF MIRENA OFFICE SUPPLY. [facility]: [id number] EXP: 06/2021 LOT# [id number] History of Present Illness 44-year-old with abnormal [...] TAKE 1 TABLET T WICE DAILY; Therapy: [id number] to Recorded Dispense: 0 Days ; #: Suffic ient Tablet Delayed Release; Refill: 0; SHARLENE = Y; Record; Last Updated By: Salma Montgomery; 05/31/2013 9:56:09 AM Depakote ER 500 MG Oral Tablet Extended Release 24 Hour; TRINIDAD E 1 TABLET BY MOUTH TWICE A DAY; Therapy: 20Yok3068 to Recorded Rx By: KEYSHA; Dispense: 30 [...] MG TOT AL) BY MOUTH DAILY; Therapy: 69Iyw5576 to Recorded Rx By: MENDY; Dispense: 30 D ays ; #:30; Refill: 0; SHARLENE = N; Record; Last Updated By: Minerva Hauser; 08/07/2019 10:53:56 AM Keppra 1000 MG Oral Tablet; TAKE 1 TABLET TWICE DAILY; Therapy: 78Eib3275 to Recorded Dispense: 0 Days ; #:60 Tabl et; Refill: 0; SHARLENE = Y; Record; Last Updated By: Salma Montgomery; 05/31/2013 9:56:09 AM Keppra 750 MG Oral Tablet; TAKE 1 TABLET BY MOUTH TWICE A DA Y; Therapy: [id number] to Recorded Rx By: KEYSHA; Dispense: 30 [...] TAKE 1 TABLET DAILY DIRECTE D; Therapy: [id number] to Recorded Dispense: 0 Days ; #:30 Tabl et; Refill: 0; SHARLENE = N; Record; Last Updated By: Salma Montgomery; 05/31/2013 9:56:09 AM LORazepam 1 MG Oral Tablet; TAKE 1 TABLET BY MOUTH FOUR TIME S A DAY; Therapy: 18Daw2309 to Recorded Rx By: KEYSHA; Dispense: 30 D ays ; #:120; Refill: 0; SHARLENE = N; Record; Last Updated By: Minerva Hauser; 08/07/2019 10:53:56 AM LORazepam 1 MG Oral Tablet; TAKE 1 TABLET EVERY 6 TO 8 HOURS NEEDED; Therapy: [id number] to Recorded Dispense: 0 Days ; #: [...] MOUTH EVERY DAY AT SUPPER TIME; Therapy: 59Ids6226 to Recorded Rx By: KEYSHA; Dispense: 30 D ays ; #:30; Refill: 0; SHARLENE = N; Record; Last Updated By: Minerva Hauser; 08/07/2019 10:53:56 AM Potassium Chloride ER 10 MEQ Oral Capsule Extend ed Release; TAKE 1 CAPSULE BY MOUTH TWICE A DAY; Therapy: [id number] to Recorded Rx By: MENDY; Dispense: 30 D ays ; #:60; Refill: 0; SHARLENE = N; Record; Last Updated By: Minerva Hauser; 08/07/2019 10:53:56 AM Therems-H Oral Tablet; TAKE 1 TABLET DAILY; Therapy: 57Jrk9131 to Recorded Dispense: 0 Days ; #:30 Tabl et; Refill: 0; SHARLENE = N; Record; Last Updated By: Salma Montgomery; 05/31/2013 9:56:09 AM Vitals Vital Signs Recorded: 25Mvg5687 10:03AM Zaobautc972 Ixgafrizz17 Height4 ft 8 in Qpklws540 lb BMI Kgnvmazwky42.01 BSA Calculated1.67 Physical Exam General: None acute [...] 7.5. The Mirena IUD was loaded into kitchen cleaner and introduced using appropriate technique. Strings trimmed [...] Status: Hold For - Scheduling Requested for: [id number] Ordered Stat;For: Encounter for removal and reinsertion [...] Triage - ED Quick Triage: Normal 09-07-2019 [facility] Are You no H chely (47188) Have You Given In The Last 6 [...] obeys commands Best Verbal Response: (V5) oriented [place] Score: 15 Cough lasting greater than 3 [...] Arrival: stretcher Mode of Arrival: ambulance Agency: [facility] ([place] [facility]) Arrival From: assisted living facility ([facility]) Accompanied By: self Language: Spoken Language Preferred: Gambian Reading Language Preferre d: Gambian Director Audience Marketing Requested: no personal development educator was requested MDRO: History of MDRO: no [...] Risk Screen - Preferred Language: Normal 2018 [facility] Adult Emergency Preferred Language: [facility] Preferred Language for Discussing Health Care (patient/desig nee)Gambian (08585) Advanced Directives: Advance Directive/DNRno Advance Directive Information [...] Learning Preferencesverbal instruction Cultural Considerationsnone Developmental Considerationsnone Amish Considerationsnone Learning Assessment (Other Learner): Learning Assessment (Other Learner): Other learner availableno Pressure Injury/TB/Substance: Pressure Injury: Pressure Injury Present on Admissionno Do you have a coughno Substance Use Current or Former 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: 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, 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, Alcohol, Street Drugs Admission Risk Screen: Significant IndicatorsComplete CAGE: CAGE: Is this an injured patient at a Trauma Center [place]ine): no Electronic Signatures: Maria Elena Kramer (RN) (Signed 07-Sep-2019 19:29) Authored: Preferred Language, Advanced Directives, Family Vi olence Adult, Learning Assessment (Patient), Learning Assessment (Ot her Learner), Pressure Injury/TB/Substance, CAGE Last Updated: 07-Sep-2019 19:29 by Maria Elena Kramer (RN) red cell morphology on 2019-09-07 RBC morphology finding Nom NORMAL Normal [facility] ([facility]) (10425) Comment: Performed By: #### HH #### [facility] [address] [place] [address] provider note - ed v2 on 2019-09-07 Provider Note - Provider Note - ED v2: Normal 1 11-07-2018 [facility] ED v2 Chart Review: [facility] ED NOTES (83911) ED NOTES: [facility]i nal pain. 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 Data Referenced From Triage - ED 07-Sep-2019 19:17 manual differential on 2019-09-07 % EOSINOPHIL 0.0 0.0 - 6.0 % Normal 09-07-2019 [facility] (44385) Comment: Performed By: #### HH #### [address] [address] % SEG NEUTROPHIL 65.0 40.0 - 80.0 % Normal 09-07-2019 [facility] (40380) Comment: Result Comment: Percent diff erential counts (%) should be interpreted in the context of the absolute cell counts (cells/L). Performed By: #### HH #### [address] [address] ANC 3.90 1.20 - 7.70 x10E9/L Normal 09-07-2019 [facility] (04686) Comment: Performed By: #### HH #### [address] [address] BAND NEUTROPHIL 0.06 0.00 - 0.70 x10E9/L Normal 09-07-2019 [facility] (70307) Comment: Performed By: #### HH #### [address] [address] BASOPHIL 0.00 0.00 - 0.10 x10E9/L Normal 09-07-2019 [facility] (15060) Comment: Performed By: #### HH #### [address] [address] EOSINOPHIL 0.00 0.00 - 0.70 x10E9/L Normal 09-07-2019 [facility] (82981) Comment: Performed By: #### HH #### [address] [address] LYMPHOCYTE 1.59 1.20 - 4.80 x10E9/L Normal 09-07-2019 [facility] (35440) Comment: Performed By: #### HH #### [address] [address] MONOCYTE 0.41 0.10 - 1.00 x10E9/L Normal 09-07-2019 [facility] (36901) Comment: Performed By: #### HH #### [address] [address] SEG NEUTROPHIL 3.84 1.20 - 7.00 x10E9/L Normal 09-07-2019 [facility] (49228) Comment: Performed By: #### HH #### [address] [address] Band form neutrophils/100 1.0 0.0 - 5.0 % Normal 08-19 [facility] 350 WBC (Bld) [place] (57357) Comment: Ordering Provider: NICKO TORRES [address] Performed By: #### HH #### [address] [address] Basophils/100 WBC (Bld) 0.0 0.0 - 2.0 % Normal 2018 [facility] [address] [place] (35190) Comment: Ordering Provider: NICKO TORRES 50183 Performed By: #### HH #### [address] [address] Lymphocytes/100 WBC (Bld) 27.0 % Normal 08-19 [facility] [address] [place] (89876) Comment: Reference Range: 13.0 - 44.0 Ordering Provider: NICKO TORRES 84240 Performed By: #### HH #### [address] [address] Monocytes/100 WBC (Bld) 7.0 2.0 - 10.0 % Normal 09-07 [facility] [address] [place] (23356) Comment: Ordering Provider: NICKO TORRES 83287 Performed By: #### HH #### [address] [address] lipase, serum on 05-09-21 Lipase [Catalytic 40 9 - 82 U/L Normal 09-07-2019 [facility] 350 activity/Vol] [place] [facility] (86945) Comment: Venipuncture immediately aft er or during the administration of Metamizole may lead to falsely low resu lts. Testing should be performed immediately prior to Metamizole dosing. R-yrkhie-c-benzoquinone imine (metabolite of Acetaminophen) will generate erroneously low results in samples for patients that have taken toxic doses of acetaminophen. Ordering Provider: NICKO TORRES 12280 Result Comment: Venipuncture immediately after or during the administration of Metamizole may lead to falsely low results. Testing should be performed immediately prior to Metamizole dosing. A-odaxdo-m-benzoquinone imin e (metabolite of Acetaminophen) will generate erroneously lo w results in samples for patients that have taken toxic doses of acetaminophen. Performed By: #### HH #### [address] [address] comprehensive panel on 2019-09-07 Albumin [Mass/Vol] 4.1 3.4 - 5.0 g/dL Normal 09-07-2019 [facility] (08539) Comment: Performed By: #### HH #### [address] [address] ALT [Catalytic activity/Vol] 19 7 - 45 U/L Normal 1 11-07-2018 [facility] (00 000) Comment: Result Comment: Patients graciela ated with Sulfasalazine may generate falsely decreased results fo r ALT. Performed By: #### HH #### [address] [address] AST [Catalytic activity/Vol] 21 9 - 39 U/L Normal 1 11-07-2018 [facility] (00 000) Comment: Performed By: #### HH #### [address] [address] GFR- AM. 46 >60 mL/min/1.73m2 Abnormal 09-07-2019 [facility] (51786) Comment: Result Comment: CALCULATIONS OF ESTIMATED GFR ARE PERFORMED USING THE MDRD STUDY EQUATIO N FOR THE IDMS-TRACEABLE CREATININE ME THODS. CLIN CHEM 2007;53:766-72 Performed By: #### HH #### [address] [address] GFR-NON AM. 38 >60 mL/min/1.73m2 Abnormal 2018 [facility] (00 000) Comment: Performed By: #### HH #### [address] [address] HCO3 (Bld) [Moles/Vol] 32 21 - 32 mmol/L Normal 019 [facility] (92716) Comment: Performed By: #### HH #### [address] [address] ALP [Catalytic 55 33 - 110 U/L Normal 09-07-2019 [facility] 350 activity/Vol] [facility] est (88532) Comment: Ordering Provider: NICKO TORRES 57476 Performed By: #### HH #### [address] [address] Anion gap [Moles/Vol] 13 10 - 20 mmol/L Normal 09-07-20 19 [facility] 350 [place] (85419) Comment: Ordering Provider: NICKO TORRES 33532 Performed By: #### HH #### [address] [address] Bilirubin [Mass/Vol] 0.3 0.0 - 1.2 mg/dL Normal 9 [facility] 350 [place] ([address]2797) Comment: Ordering Provider: NICKO TORRES 48591 Performed By: #### HH #### [address] [address] Calcium [Mass/Vol] 9.7 8.6 - 10.3 mg/dL Normal 09-07-2019 [facility] 350 [place] (03909) Comment: Ordering Provider: NICKO TORRES 44177 Performed By: #### HH #### [address] [address] Chloride 97 98 - 107 mmol/L below low 09-07-2019 [facility] 350 [Moles/Vol] threshold [place] (72947) Comment: Ordering Provider: NICKO TORRES 43557 Performed By: #### HH #### [address] [address] Creatinine 1.47 mg/dL above high 09-07-2019 [facility] 350 [Mass/Vol] threshold [place] (65718) Comment: Reference Range: 0.50 - 1.05 Ordering Provider: NICKO TORRES 96381 Performed By: #### HH #### [address] [address] Glucose [Mass/Vol] 94 74 - 99 mg/dL Normal 09-07-2019 [facility] [address] [place] (95195) Comment: Ordering Provider: NICKO TORRES 96517 Performed By: #### HH #### [address] [address] Potassium 4.4 3.5 - 5.3 mmol/L Normal 09-07-2019 [facility] 350 [Moles/Vol] [place] (62447) Comment: Ordering Provider: NICKO TORRES [address]4054 Performed By: #### HH #### [address] [address] Protein 6.3 6.4 - 8.2 g/dL below low 09-07-2019 [facility] 350 [Mass/Vol] threshold [place] (06834) Comment: Ordering Provider: NICKO TORRES 512[address] Performed By: #### HH #### [address] [address] Sodium [Moles/Vol] 138 136 - 145 mmol/L Normal 09-07-2019 [facility] [address] [place] ([address]) Comment: Ordering Provider: NICKO TORRES 38897 Performed By: #### HH #### [address] [address] Urea nitrogen 20 6 - 23 mg/dL Normal 09-07-2019 [facility] 350 [Mass/Vol] [place] ([address]) Comment: Ordering Provider: NICKO Sanchez Performed By: #### HH #### [address] [address] complete blood count + differential on 2019-09-07 Erythrocyte 15.2 See Below % above high 09-07-2019 [facility] 350 distribution width threshold [place] ([address]) (RBC) [Ratio] Comment: Reference Range: 11.5 - 14.5 Ordering Provider: NICKO Sanchez Hematocrit (Bld) [Volume 38.5 See Below % 09-07 [facility] 350 [place] fraction] (56428) Comment: Reference Range: 36.0 - 46.0 Ordering Provider: NICKO Sanchez Hemoglobin (Bld) 13.1 See Below g/dL 09-07-2019 [facility] 350 [Mass/Vol] [place] ([address]263) Comment: Reference Range: 12.0 - 16.0 Ordering Provider: NICKO Sanchez MCHC (RBC) [Mass/Vol] 34.0 See Below g/dL 09-07-20 19 [facility] 350 [place] ([address]60) Comment: Reference Range: 32.0 - 36.0 Ordering Provider: NICKO Sanchez MCV (RBC) [Entitic vol] 91 80 - 100 fL 2018 [facility] [address] [place] ([id number]) Comment: Ordering Provider: NICKO Sanchez Platelets (Bld) 92 150 - 450 {x10E9/L} below low [facility] [#/Vol] threshold [place] ([address]) Comment: Ordering Provider: NICKO TORRES [address] RBC (Bld) [#/Vol] 4.25 See Below {x10E12/L} 09-07-2019 [facility] [address] ([address]) Comment: Reference Range: 4.00 - 5.20 Ordering Provider: NICKO TORRES 11198 WBC (Bld) [#/Vol] 5.9 4.4 - 11.3 {x10E9/L} 09-07-2019 [facility] [address] ([address]) Comment: Ordering Provider: NICKO Sanchez SEE MANUAL DIFF [facility] [address] [place] ([address]) Comment: Ordering Provider: NICKO Guadarrama03 cbc and differential on 2019-09-07 DIFFERENTIAL SEE MANUAL DIFF Normal 09-07-2019 [facility] ([address]) Comment: Performed By: #### HH #### [address] [address] Erythrocyte distribution 15.2 11.5 - 14.5 % High [facility] width (RBC) [Ratio] Health (24736) Comment: Performed By: #### HH #### [address] [address] Hematocrit (Bld) [Volume 38.5 36.0 - 46.0 % Normal [facility] fraction] [facility] (00 000) Comment: Performed By: #### HH #### [address] [address] Hemoglobin (Bld) 13.1 12.0 - 16.0 g/dL Normal 09-07-2019 [facility] [Mass/Vol] [facility] (0 0000) Comment: Performed By: #### HH #### [address] [address] MCHC (RBC) [Mass/Vol] 34.0 32.0 - 36.0 g/dL Normal 2018 [facility] (00 000) Comment: Performed By: #### HH #### [address] [address] MCV (RBC) [Entitic vol] 91 80 - 100 fL Normal 2018 [facility] (47621) Comment: Performed By: #### HH #### [address] [address] Platelets (Bld) [#/Vol] 92 150 - 450 x10E9/L Low 2018 [facility] ([address]) Comment: Performed By: #### HH #### [address] [address] RBC (Bld) [#/Vol] 4.25 4.00 - 5.20 x10E12/L Normal 09-07-2019 [facility] (00 000) Comment: Performed By: #### HH #### [address] [address] WBC (Bld) [#/Vol] 5.9 4.4 - 11.3 x10E9/L Normal 09-07-2019 [facility] (71937) Comment: Performed By: #### HH #### [address] [address] No panel information on 2019-09-07 Albumin BCP dye 4.1 3.4 - 5.0 g/dL 09-07-2019 [facility] 350 [Mass/Vol] [place] ([address]) Comment: Ordering Provider: NICKO TORRES 95288 ALT With P-5'-P [Catalytic 19 7 - 45 U/L [facility] [address] activity/Vol] ([address] ) Comment: Patients treated with Sulfas alazine may generate falsely decreased results for ALT. Ordering Provider: NICKO TORRES 30789 AST With P-5'-P [Catalytic 21 9 - 39 U/L [facility] [address] [place] activity/Vol] ([address] ) Comment: Ordering Provider: NICKO TORRES [address]34 Basophils (Bld) 0.00 See Below {x10E9/L} 09-07-2019 [facility] [#/Vol] [place] ([address]) Comment: Reference Range: 0.00 - 0.10 Ordering Provider: NICKO TORRES [address]153 CO2 [Moles/Vol] 32 21 - 32 mmol/L 09-07-2019 [facility] ([address]) Comment: Ordering Provider: NICKO Sanchez Eosinophils (Bld) 0.00 See Below {x10E9/L} 09-07-2019 [facility] 350 [#/Vol] [place] ([facility]) Comment: Reference Range: 0.00 - 0.70 Ordering Provider: NICKO Sanchez Eosinophils/100 WBC (Bld) 0.0 0.0 - 6.0 % 08-19 [facility] ([facility]) Comment: Ordering Provider: NICKO Sanchez Lymphocytes (Bld) 1.59 See Below {x10E9/L} 09-07-2019 [place] [address] [#/Vol] [place] ([facility]) Comment: Reference Range: 1.20 - 4.80 Ordering Provider: NICKO Sanchez Monocytes (Bld) 0.41 See Below {x10E9/L} 09-07-2019 [place] [address] [#/Vol] [place] ([address]) Comment: Reference Range: 0.10 - 1.00 Ordering Provider: NICKO Sanchez Segmented neutrophils/100 65.0 See Below % 08-19 [place] [address] WBC (Bld) [place] ([address]) Comment: Reference Range: 40.0 - 80.0 Percent differential counts (%) should be interpreted in the context o f the absolute cell counts (cells/L). Ordering Provider: NICKO TORRES 85124 3.84 See Below {x10E9/L} 09-07-2019 [facility] [address] ([facility]) Comment: Reference Range: 1.20 - 7.00 Ordering Provider: NICKO Sanchez 38 >60 {mL/min/1.73m2} Abnormal 09-07-2019 [facility] [address] [place] ([address]) Comment: Ordering Provider: NICKO Sanchez 0.06 See Below {x10E9/L} 09-07-2019 [facility] [address] [place] ([address]) Comment: Reference Range: 0.00 - 0.70 Ordering Provider: NICKO Sanchez NORMAL 09-07-2019 [place] [address] [place] ([address]) Comment: Ordering Provider: NICKO Sanchez 3.90 See Below {x10E9/L} 09-07-2019 [place] [address] [place] ([address]) Comment: Reference Range: 1.20 - 7.70 Ordering Provider: NICKO Sanchez 46 >60 {mL/min/1.73m2} Abnormal 09-07-2019 [facility] [address] [place] ([address]) Comment: CALCULATIONS OF ESTIMATED GF R ARE PERFORMED USING THE MDRD STUDY EQUATION FOR THE IDMS-TRACEABLE CREAT ININE METHODS. CLIN CHEM 2007;53:766-72 Ordering Provider: NICKO Sanchez knee cmplt, 4 or more views on 2019-08-21 KNEE CMPLT, 4 OR Normal [address] [place] [address] MORE VIEWS [facility] ([id number] STUDY: KNEE; COMPLT, 4 OR MORE VIEWS;Left; 08/20/2019 10:00 pm INDICATION: fall. COMPARISON: None. ACCESSION NUMBER(S): [id number] ORDERING CLINICIAN: TENISHA LANE FINDINGS: Four views left knee. No acute fracture or malalignment. Bones appear normally min eralized. No significant degenerative changes. No knee effusion. Soft tissues are within normal limits. IMPRESSION: Normal left knee radiography. Electronically signed by: HEIDY JARA MD No panel information on 2019-08-21 XR Knee 4 Interpreted by: HEIDY Del Rio 2018 [facility] [address] JARA08/20/19 [place] ([address]) 22:23MRN: [id number] Name: [facility] REEMA STUDY:KNEE; COMPLT, 4 OR MORE VIEWS;Left; 08/20/2019 10:00 pm INDICATION:fall. COMPARISON:None. ORDERING CLINICIAN:TENISHA LANE FINDINGS:Four views left knee. No acute fracture or malalignment. Bones appear normally mineralized.No significant degenerative changes. No knee effusion. Soft tissuesare within normal limits. IMPRESSION:Normal left knee radiography. Electronically signed by: HEIDY JARA 08/20/19 22:23 Comment: Ordering Provider: TENISHA Mckoy [address] triage - ed on 2018 Triage - ED Quick Triage: Normal 08-20-2019 [facility] Are You no H ealth (71142) Have You Given In The Last 6 [...] BMI (kg/m2): 39.266 Calculated BSA (m2) 1.77 [place] Coma Scale: Best Eye Response: (E4) spontaneous [...] assisted living facility Accompanied By: self and industrial mechanic Language: Spoken Language Preferred: Gambian Reading Language Preferre d: Gambian PRIMARY ASSESSMENT ABCD Normal Findings: airway open and patent PAST MEDICAL HISTORY Immunization History: Last Known Tetanus Immunization: Less than 5 years TRAVEL HISTORY Travel Exposure History: NO travel to International [facility] in the past 30 days Past Medical [...] Risk Screen - Preferred Language: Normal 2018 [facility] Adult Emergency Preferred Language: [facility] Preferred Language for Discussing Health Care (patient/desjose rodriguez)Gambian (13332) Advanced Directives: Advance Directive/DNRno Family Violence Adult: Abuse Screen: Are you or have you been threatened or abused physically, em otionally, or sexually by anyoneno Learning Assessment (Patient): Learning Assessment (Patient): Patient is Able to be Assessed for Learningyes Factors Influencing Readiness to Learnmotivation to learn Factors that Impact Ability to Learnnone Devices/Methods Used to Communicatenone Learning Preferencesaudio Cultural Considerationsnone Developmental Considerationsnone Amish Considerationsnone Learning Assessment (Other Learner): Learning Assessment (Other Learner): Other learner availableno Pressure Injury/TB/Substance: Pressure Injury: Pressure Injury Present on Admissionno Do you have a coughno Substance Use Current or Former 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: 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, 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, Alcohol, Street Drugs Admission Risk Screen: Significant IndicatorsComplete CAGE: CAGE: Is this an injured patient at a Tra[place] Center [place]): no Electronic Signatures: Megan Linton (RN) (Signed 20-Aug-2019 21:45) Authored: Preferred Language, Advanced Directives, Family Vi olence Adult, Learning Assessment (Patient), Learning Assessment (Ot her Learner), Pressure Injury/TB/Substance, CAGE Last Updated: 20-Aug-2019 21:45 by Megan Linton (RN) provider note - ed v2 on 2019-08-20 Provider Note - Provider Note - ED v2: Normal 1 10-20-2018 [facility] ED v2 Chart Review: [facility] ED NOTES ([id number]) ED NOTES: HPI: Patient is a resident of a [facility] and just prior to arrival she had [...] and oriented x4 , GCS 15 , health care facilities inspector II-XII grossly intact. Sensation and motor function [...] rig ht now. unwitnessed fall from [place] NO LOC NOTED. per pt, I get [...] Description:epileptic seizure Description:anxiety Description:major depressive disorder Description:hypertension GRAIN WEIGHER: Is : no(1) Is : no(1) RESULTS/VITAL [...] SIGNS: T PRBP SpO2O2(LPM) %FiO2 Method 20-Aug-2019 21:02:[id number]/75 95 room air, no respira tory support [...] no acute distress. Patient discharged back to [facility] faci lity. The CAT scan of your [...] patient: no Electronic Signatures: Tenisha Lane I (MACHINE CELL [employer]ER [employer] P[employer]ER) (Signed 20-Aug-2019 22:33) Authored: Provider Note - ED v2 Last Updated: 20-Aug-2019 22:[address] I (MACHINE CELL [employer]ER) References: 1. Data Referenced From Triage - ED 20-Aug-2019 21:02 ct head wo contrast on 2019-08-20 CT HEAD WO Normal 08-20-2019 [facility] CONTRAST [facility]: [facility] ([id number]) STUDY: CT HEAD WO CONTRAST; CT C-SPINE WO CONTRAST;; 08/20/2019 9:58 pm INDICATION: fall. COMPARISON: 03/18/[address] cervical spine from 03/16/2019. ACCESSION NUMBER(S): [id number]; [id number] ORDERING CLINICIAN: TENISHA LANE TECHNIQUE: Noncontrast CT [...] 08-20-[facility]: [facility] [employer] ([address]248) STUDY: CT HEAD WO CONTRAST; CT C-SPINE WO CONTRAST;; 08/20/2019 9:58 pm INDICATION: fall. COMPARISON: 03/18/[address] cervical spine from 03/16/2019. ACCESSION NUMBER(S): [id number]; [id number] ORDERING CLINICIAN: TENISHA LANE TECHNIQUE: Noncontrast CT [...] Head Interpreted by: HEIDY Del Rio [address]08/20/19 [place] ([id number]) contrast 22:22MRN: [id number] Name: REEMA MOTTA STUDY:CT HEAD WO CONTRAST; CT C-SPINE WO CONTRAST;; 08/20/2019 9:58 pm INDICATION:fall. COMPARISON:03/18/[address] cervical spine from 03/16/2019. [id number] ORDERING CLINICIAN:TENISHA LANE TECHNIQUE:Noncontrast CT exams of [...] 08/20/19 22:22 Comment: Ordering Provider: TENISHA Mckoy [address]82[address] Interpreted by: HEIDY Del Rio 08-20-[address]08/20/19 22:22MRN: Jaspal [id number]) [id number] Name: REEMA MOTTA STUDY:CT HEAD WO CONTRAST; CT C-SPINE WO CONTRAST;; 08/20/2019 9:58 pm INDICATION:fall. COMPARISON:03/18/[address] cervical spine from 03/16/2019. [id number] ORDERING CLINICIAN:TENISHA LANE TECHNIQUE:Noncontrast CT exams of [...] 08/20/19 22:22 Comment: Ordering Provider: TENISHA Mckoy [address] healthcare applications analyst - office visit on 2019-08-07 GRAIN WEIGHER - Chief Complaint Normal 08-07-2019 [facility] Office Visit ([id number]) PT HERE TODAY FOR US RESULTS History [...] MG TOT AL) BY MOUTH DAILY; Therapy: [id number] to Recorded Rx By: MENDY; Dispense: 30 D ays ; #:30; Refill: 0; SHARLENE = N; Record; Last Updated By: Minerva Hauser; 08/07/2019 10:53:56 AM Keppra 750 MG Oral Tablet; TAKE 1 TABLET BY MOUTH TWICE A DA Y; Therapy: [id number] to Recorded Rx By: KEYSHA; Dispense: 30 [...] MOUTH FOUR TIME S A DAY; Therapy: [id number] to Recorded Rx By: KEYSHA; Dispense: 30 [...] MOUTH EVERY DAY AT SUPPER TIME; Therapy: [id number] to Recorded Rx By: KEYSHA; Dispense: 30 D ays ; #:30; Refill: 0; SHARLENE = N; Record; Last Updated By: Minerva Hauser; 08/07/2019 10:53:56 AM Potassium Chloride ER 10 MEQ Oral Capsule Extend ed Release; TAKE 1 CAPSULE BY MOUTH TWICE A DAY; Therapy: [id number] to Recorded Rx By: MENDY; Dispense: 30 D ays ; #:60; Refill: 0; SHARLENE = N; Record; Last Updated By: Minerva Hauser; 08/07/2019 10:53:56 AM Vitals Vital Signs Recorded: 07Aug2019 11:01AM Smkyfneh075 Xadrgvyvq21 Height4 ft 7.12 in Zewtpq625 lb 4.83 oz BMI Ajjbhwtxox81.11 BSA Calculated1.65 Physical Exam General: None acute distress Eye: Intraocular movements are intact HEENT: Normocephalic Respiratory: Respirations are nonlabored Gastrointestinal: Nondistended Musculoskeletal: Normal range of motion Neurologic: Alert and orientedx3 Psychiatric: Cooperative appropriate mood and affect. Results/Data Ultrasound Pelvis Transabdom inal With Iokkswbvuube64Fpq6155 10:44Anel [place] Test NameResultFlagReference Ultrasound Pelvis Transabdominal With Transvaginal(Report) Interpreted by: TIFFANIE PARK 08/03/19 22:49 Patient Name: REEMA MOTTA STUDY: US PELVIS TRANSABDOMINAL WITH TRANSVAGINAL; 08/03/2019 10:44 am INDICATION: PELVIC PAIN. COMPAR BRIGIDA: None. ACCESSION NUMBER (S): [id number] ORDERING CLINICIAN: ANEL MORGAN TECHNIQUE: Transabdominal and [...] [Volume 36.5 36.0 - 46.0 % Normal [facility]] Health (00 000) Comment: Performed By: #### HH #### [address] [address] Hemoglobin (Bld) 12.3 12.0 - 16.0 g/dL Normal 08-04-2019 [facility] [Mass/Vol] Health (0 0000) Comment: Performed By: #### HH #### [address] [address] us pelvis transabdominal with transvagin al on 2019-08-03 US PELVIS Normal 08-03-2019 [facility] TRANSABDOMINAL WITH Patient Name: [facility] TRANSVAGINAL (12950) STUDY: US PELVIS TRANSABDOMINAL WITH TRANSVAGINAL; 08/03/2019 10:44 am INDICATION: PELVIC PAIN. COMPARISON: None. ACCESSION NUMBER(S): [id number] ORDERING CLINICIAN: ANEL MORGAN TECHNIQUE: Transabdominal and [...] 2019-08-03 Interpreted by: TIFFANIE NAVARRO Normal 08-03-2019 [address]RIAL[address] 22:49MRN: Jaspal ([id number]) [id number] Name: REEMA MOTTA STUDY:US PELVIS TRANSABDOMINAL WITH [...] PCR. Not Detected Not Detected Normal 2018 [facility] (07088) Comment: Result Comment: Xpert CT/NG Assay performance has not been evaluated in patients less than 14 years of age. Performed By: #### [id number] #### MARCUS RemHemo [facility] [place] [address] Gonorrhoeae by PCR Not Detected Not Detected Normal 07-19 [facility] ([address]684) Comment: Result Comment: Xpert CT/NG Assay performance has not been evaluated in patients less than 14 years of age. Performed By: #### [id number] #### MARCUS RemHemo [facility] [place] [address] ct abdomen/pelvis w/ contrast on 2019-07-05 CT Abdomen/Pelvis w/ Exam Date/Time: Normal [facility] Contrast 07/05/2019 13:33 EDT [facility] Reason for Exam: s tem ([id number]) ABDOMINAL PAIN AND TENDERNESS Report STUDY: CT Abdomen/Pelvis w/ Contrast; 07/05/2019 1:33 pm INDICATION: ABDOMINAL PAIN AND TENDERNESS. COMPARISON: 12/02/2018 ACCESSION NUMBER(S): [id number] ORDERING CLINICIAN: Holden Velasco TECHNIQUE: Contiguous axial [...] Magnesium [Mass/Vol] 2.0 1.6-2.4 mg/dL Normal 9 [facility] () Comment: Performed By: #### [id number] #### MRACUS RemHemo [address] [place] [address] egfr on 2019-03-25 GFR/1.73 sq M predicted >60 mL/min/{1.73_m2} Normal 03-25-2019 [facility] among non-blacks [facility] (23849) (S/P/Bld) [Vol rate/Area] Comment: Order Comment: Order Added b y Discern Expert. Performed By: #### [id number] #### MARCUS RemHemo [address] [place] [id number] GFR/1.73 sq M predicted 50 mL/min/1.73 m2 Normal 0 03-25-2019 [facility] among non-blacks [facility] (81712) (S/P/Bld) [Vol rate/Area] Comment: Order Comment: Order Added b y Discern Expert. Performed By: #### [id number] #### MARCUS RemHemo [address] [place] [address] bmp on 2019-03-25 Anion gap [Moles/Vol] 10 10-20 mEq/L Normal 03-25-20 19 [facility] () Comment: Performed By: #### [id number] #### MARCUS RemHemo [address] [place] [address] Calcium [Mass/Vol] 8.7 8.6-10.3 mg/dL Normal 03-25-2019 [facility] () Comment: Performed By: #### [id number] #### MARCUS RemHemo [address] [place] [address] Chloride [Moles/Vol] 108 98-107 mEq/L High 9 [facility] () Comment: Performed By: #### [id number] #### MARCUS RemHemo [address] [place] [address] CO2 [Moles/Vol] 25.0 21.0-32.0 mEq/L Normal 03-25-2019 [facility] () Comment: Performed By: #### [id number] #### MARCUS WilcoxHemo [address] [place] [address] Creatinine [Mass/Vol] 1.2 0.5-1.1 mg/dL High 03-25-20 [facility] () Comment: Performed By: #### [id number] #### MARCUS RemHemo [facility] [place] [address] Glucose [Mass/Vol] 97 70-99 mg/dL Normal 03-25-2019 [facility] (00367) Comment: Performed By: #### [id number] #### MARCUS RemHemo [facility] [place] [address] Potassium [Moles/Vol] 4.5 3.5-5.3 mEq/L Normal 03-25-20 [facility] () Comment: Performed By: #### [id number] #### MARCUS RemHemo [facility] [place] [address] Sodium [Moles/Vol] 138 136-145 mEq/L Normal 03-25-2019 [facility] () Comment: Performed By: #### [id number] #### MARCUS RemHemo [facility] [place] [address] Urea nitrogen [Mass/Vol] 14 6-23 mg/dL Normal 03-25 [facility] ( 000) Comment: Performed By: #### [id number] #### MARCUS RemHemo [facility] [place] [address] Urea nitrogen/Creatinine 11.7 5.4-30.0 ratio Normal 03-25 [facility] [Mass ratio] [facility] (14573) Comment: Performed By: #### [id number] #### MARCUS RemHemo [facility] [place] [address] magnesium on 6-07 Magnesium [Mass/Vol] 2.1 1.6-2.4 mg/dL Normal 9 [facility] (00 000) Comment: Performed By: #### [id number] #### MARCUS WilcoxHemo [address] [place] [address] egfr on 2019-03-24 GFR/1.73 sq M predicted 55 mL/min/1.73 m2 Normal 0 03-24-2019 [facility] among non-blacks [facility] (88078) (S/P/Bld) [Vol rate/Area] Comment: Order Comment: Order Added b y Discern Expert. Performed By: #### [id number] #### MARCUS JeriHemo [facility] [place] [address] GFR/1.73 sq M predicted >60 mL/min/{1.73_m2} Normal 03-24-2019 [facility] among non-blacks [facility] (61601) (S/P/Bld) [Vol rate/Area] Comment: Order Comment: Order Added b y Discern Expert. Performed By: #### [id number] #### MARCUS JeriHemo [facility] [place] [address] cbc w/ auto diff on 2019-03-24 Erythrocyte distribution 13.4 11.5-14.5 % Normal 03-24 [facility] width (RBC) [Ratio] Health System (20843) Comment: Performed By: #### [id number] #### MARCUS JeriHemo [facility] [place] [address] Hematocrit (Bld) [Volume 36.3 36.0-48.0 % Normal 03-24 [facility] fraction] Health Sys tem (27538) Comment: Performed By: #### [id number] #### MARCUS JeriHemo [address] [place] [address] Hemoglobin (Bld) 12.3 12.0-16.0 G/DL Normal 03-24-2019 [facility] [Mass/Vol] Health [facility] (32860) Comment: Performed By: #### [id number] #### MARCUS JeriHemo [address] [place] [address] MCH (RBC) [Entitic mass] 30.4 27.0-31.0 pg Normal 03-24 [facility] (00 000) Comment: Performed By: #### [id number] #### MARCUS WilcoxHemo [facility] [place] [address] MCHC (RBC) [Mass/Vol] 33.7 33.0-37.0 G/DL Normal 03-24-20 [facility] (00 ) Comment: Performed By: #### [id number] #### MARCUS WilcoxHemo [facility] [place] [address] MCV (RBC) [Entitic vol] 90.1 78.0-100.0 fL Normal 03-24 [facility] (56348) Comment: Performed By: #### [id number] #### MARCUS Kenyono [facility] [place] [address] Platelet mean volume 8.3 7.4-11.0 fL Normal [facility] (Bld) [Entitic vol] System (61562) Comment: Performed By: #### [id number] #### MARCUS JeriHemo [facility] [place] [address] Platelets (Bld) [#/Vol] 101 130-400 E3/mcL Low 2018 [facility] () Comment: Performed By: #### [id number] #### MARCUS Kenyono [facility] [place] [address] RBC (Bld) [#/Vol] 4.04 3.90-5.40 E6/mcL Normal 03-24-2019 [facility] () Comment: Performed By: #### [id number] #### MARCUS WilcoxHemo [facility] [place] [address] WBC (Bld) [#/Vol] 3.9 3.6-11.0 E3/mcL Normal 03-24-2019 [facility] () Comment: Performed By: #### [id number] #### MARCUS WilcoxHemo [facility] [place] [address] bmp on 2019-03-24 Anion gap [Moles/Vol] 9 10-20 mEq/L Low 03-24-20 [facility] (41152) Comment: Performed By: #### [id number] #### MARCUS RemHemo [address] [place] [address] Calcium [Mass/Vol] 8.2 8.6-10.3 mg/dL Low 03-24-2019 [facility] (79324) Comment: Performed By: #### [id number] #### MARCUS RemHemo [address] [place] [address] Chloride [Moles/Vol] 110 98-107 mEq/L High 9 [facility] (00 000) Comment: Performed By: #### [id number] #### MARCUS RemHemo [address] [place] [address] CO2 [Moles/Vol] 23.0 21.0-32.0 mEq/L Normal 03-24-2019 [facility] (00 000) Comment: Performed By: #### [id number] #### MARUCS RemHemo [address] [place] [address] Creatinine [Mass/Vol] 1.1 0.5-1.1 mg/dL Normal 03-24-20 19 [facility] (00 000) Comment: Performed By: #### [id number] #### MARCUS RemHemo [address] [place] [address] Glucose [Mass/Vol] 92 70-99 mg/dL Normal 03-24-2019 [facility] (31381) Comment: Performed By: #### [id number] #### MARCUS RemHemo [address] [place] [address] Potassium [Moles/Vol] 4.1 3.5-5.3 mEq/L Normal 03-24-20 19 [facility] (00 000) Comment: Performed By: #### [id number] #### MARCUS RemHemo [address] [place] [address] Sodium [Moles/Vol] 138 136-145 mEq/L Normal 03-24-2019 [facility] (00 000) Comment: Performed By: #### [id number] #### MARCUS RemHemo [address] [place] [address] Urea nitrogen [Mass/Vol] 11 6-23 mg/dL Normal 03-24 [facility] (00 000) Comment: Performed By: #### [id number] #### MARCUSShawn Kenyon[address] [address] Urea nitrogen/Creatinine 10.0 5.4-30.0 ratio Normal 03-24 [facility] [Mass ratio] [facility] (44524) Comment: Performed By: #### [id number] #### MARCUS Jeri[address] [address] auto diff on 03-24 Basophils (Bld) [#/Vol] 0.0 0.0-0.2 E3/mcL Normal 2018 [facility] (68791) Comment: Order Comment: Order Added b y Discern Expert. Performed By: #### [id number] #### MARCUS Wilcox[address] [address] Basophils/100 WBC (Bld) 0.1 0.0-2.0 % Normal 2018 [facility] (00 000) Comment: Order Comment: Order Added b y Discern Expert. Performed By: #### [id number] #### [facility] Jeri[address] [address] Eos Absolute 0.1 0.0-0.7 E3/mcL Normal 03-24-2019 [facility] (78084) Comment: Order Comment: Order Added b y Discern Expert. Performed By: #### [id number] #### [facility] Kostas[address] [address] Eosinophils/100 WBC (Bld) 1.7 0.0-11.0 % Normal [facility] (00 000) Comment: Order Comment: Order Added b y Discern Expert. Performed By: #### [id number] #### [address] [address] Lymphocytes (Bld) [#/Vol] 1.3 1.2-3.4 E3/mcL Normal [facility] tem ([address]95) Comment: Order Comment: Order Added b y Discern Expert. Performed By: #### [id number] #### [address], [place] [address] Lymphocytes/100 WBC (Bld) 33.8 20.0-55.0 % Normal [facility] (01853) Comment: Order Comment: Order Added erma Aldana Expert. Performed By: #### [id number] #### MARCUS Kenyono [address] [place] [address] [place] Absolute 0.4 0.0-0.7 E3/mcL Normal 03-24-2019 Located within [facility] (88082) Comment: Order Comment: Order Added erma y Discern Expert. Performed By: #### [id number] #### [facility] [address] [place] [address] Monocytes/100 WBC (Bld) 11.3 0.0-10.0 % High 2018 [facility] (00 000) Comment: Order Comment: Order Added erma Aldana Expert. Performed By: #### [id number] #### MARCUS [address] [address] Neutro Absolute 2.1 1.4-6.5 E3/mcL Normal 03-24-2019 [facility] (04552) Comment: Order Comment: Order Added erma Aldana Expert. Performed By: #### [id number] #### MARCUSShawn Kenyon[address] [address] Neutro Auto 53.1 37.0-75.0 % Normal 03-24-2019 [facility] (04426) Comment: Order Comment: Order Added erma Aldana Expert. Performed By: #### [id number] #### [facility] [address] [place] [address] zzplt morph on 2018 Platelet morphology finding NORMAL Normal [facility] (d) System (00 000) Comment: Performed By: #### [id number] #### MARCUS [facility] [address] [place] [address] Platelets (Bld) [#/Vol] DECREASED Normal 2018 [facility] (00 000) Comment: Performed By: #### [id number] #### MARCUS [facility] [address] [id number] xr shoulder complete left on 2019-03-23 XR Shoulder Exam Date/Time: Normal 03-23-2019 S [facility] Complete Left 03/23/2019 01:05 EDT Health System Reason for Exam: (00 000) Fall Report STUDY: XR Shoulder Complete Left;; 03/23/2019 1:05 am INDICATION: Fall. COMPARISON: None. ACCESSION NUMBER(S): [id number] ORDERING CLINICIAN: Narcisa Lo FINDINGS: Five views [...] TSH Qn 2.75 0.30-5.60 mcIU/mL Normal 03-23-2019 [facility] (52899) Comment: Performed By: #### [id number] #### MARCUS Luong [address] [place] [address] troponin-i on 03-23 Troponin I.cardiac 0.01 0.00-0.03 ng/mL Normal 03-23-2019 [facility] [Mass/Vol] [facility] (84844) Comment: Order Comment: Order Added b y Katya Expert. Performed By: #### [id number] #### MARCUS Luong [facility] [place] [address] manual diff on 2018 Anisocytosis Ql (Bld) 1+ Normal 03-23-20 19 [facility] (14296) Comment: Order Comment: Order Added b y Discern Expert. Performed By: #### [id number] #### MARCUS Luong [facility] [id number] Basophil Man 0 0-1 % Normal 03-23-2019 [facility] (88232) Comment: Order Comment: Order Added b y Katya Expert. Performed By: #### [id number] #### MARCUS Kenyono [address] [place] [address] Eosinophils/100 WBC (Bld) 0 0-5 % Normal [facility] (35422) Comment: Order Comment: Order Added b y Discern Expert. Performed By: #### [id number] #### MARCUS Kenyono [address] [place] [address] Lymphocytes/100 WBC (Bld) 54 14-48 % High [facility] (54543) Comment: Order Comment: Order Added b y Discern Expert. Performed By: #### [id number] #### MARCUS Kenyono [address] [place] [address] Monocyte Man 4 1-11 % Normal 03-23-2019 [facility] (53641) Comment: Order Comment: Order Added b y Discern Expert. Performed By: #### [id number] #### MARCUS Kenyono [address] [place] [address] RBC morphology finding SEE MORPHOLOGY Normal [facility] (36446) Comment: Order Comment: Order Added b y Discern Expert. Performed By: #### [id number] #### MARCUS Kenyono [address] [place] [address] Segs Man 42 37-75 % Normal 03-23-2019 [facility] (43037) Comment: Order Comment: Order Added b y Discern Expert. Performed By: #### [id number] #### MARCUSShawn Kenyono [facility] [place] [address] magnesium on 03-23 Magnesium [Mass/Vol] 2.9 1.6-2.4 mg/dL High 9 [facility] (00 000) Comment: Performed By: #### [id number] #### MARCUSShawn Kenyono [facility] [place] [address] egfr on 2019-03-23 GFR/1.73 sq M predicted >60 mL/min/{1.73_m2} Normal 03-23-2019 [facility] among non-blacks [facility] (57042) (S/P/Bld) [Vol rate/Area] Comment: Order Comment: Order Added erma Aldana Expert. Performed By: #### [id number] #### MARCUS WilcoxHemo [address] [place] [address] GFR/1.73 sq M predicted 56 mL/min/1.73 m2 Normal 0 03-23-2019 [facility] among non-blacks [facility] (88550) (S/P/Bld) [Vol rate/Area] Comment: Order Comment: Order Added erma Aldana Expert. Performed By: #### [id number] #### MARCUS JeriHemo [facility] [place] [address] cbc w/ auto diff on 2019-03-23 Erythrocyte distribution 13.6 11.5-14.5 % Normal 03-23 [facility] width (RBC) [Ratio] Health System (90133) Comment: Performed By: #### [id number] #### MARCUS [facility] [place] [address] Hematocrit (Bld) [Volume 36.9 36.0-48.0 % Normal 03-23 [facility] fraction] Health Sys tem (53398) Comment: Performed By: #### [id number] #### MARCUS WilcoxHemo [facility] [place] [address] Hemoglobin (Bld) 12.2 12.0-16.0 G/DL Normal 03-23-2019 [facility] [Mass/Vol] Health [facility] stem (93048) Comment: Performed By: #### [id number] #### MARCUSShawn WilcoxHemo [facility] [place] [address] MCH (RBC) [Entitic mass] 30.1 27.0-31.0 pg Normal 03-23 [facility] (00 000) Comment: Performed By: #### [id number] #### [facility] [place] [address] MCHC (RBC) [Mass/Vol] 33.1 33.0-37.0 G/DL Normal 03-23-20 19 [facility] (00 000) Comment: Performed By: #### [id number] #### [facility] [place] [address] MCV (RBC) [Entitic vol] 91.0 78.0-100.0 fL Normal 03-23 [facility] (23952) Comment: Performed By: #### [id number] #### MARCUS JeriHemo [address] [place] [address] Platelet mean volume 8.3 7.4-11.0 fL Normal 9 [facility] (Bld) [Entitic vol] System (55984) Comment: Performed By: #### [id number] #### MARCUSShawn WilcoxHemo [facility] [place] [address] Platelets (Bld) [#/Vol] 97 130-400 E3/mcL Low 2018 [facility] (00 000) Comment: Performed By: #### [id number] #### MARCUS JeriHemo [facility] [place] [address] RBC (Bld) [#/Vol] 4.05 3.90-5.40 E6/mcL Normal 03-23-2019 [facility] (00 000) Comment: Performed By: #### [id number] #### MARCUSShawn WilcoxHemo [facility] [place] [address] WBC (Bld) [#/Vol] 3.0 3.6-11.0 E3/mcL Low 03-23-2019 [facility] (83181) Comment: Performed By: #### [id number] #### MARCUS JeriHemo [address] [place] [address] bmp on 2019-03-23 Anion gap [Moles/Vol] 8 10-20 mEq/L Low 03-23-20 19 [facility] (02438) Comment: Performed By: #### [id number] #### MARCUS RemHemo [address] [place] [address] Calcium [Mass/Vol] 7.8 8.6-10.3 mg/dL Low 03-23-2019 [facility] (09738) Comment: Performed By: #### [id number] #### MARCUS RemHemo [address] [place] [address] Chloride [Moles/Vol] 111 98-107 mEq/L High 9 [facility] () Comment: Performed By: #### [id number] #### MARCUS RemHemo [address] [place] [address] CO2 [Moles/Vol] 22.0 21.0-32.0 mEq/L Normal 03-23-2019 [facility] (00 ) Comment: Performed By: #### [id number] #### MARCUS RemHemo [address] [place] [address] Creatinine [Mass/Vol] 1.1 0.5-1.1 mg/dL Normal 03-23-20 [facility] (00 000) Comment: Performed By: #### [id number] #### MARCUS RemHemo [facility] [place] [address] Glucose [Mass/Vol] 102 70-99 mg/dL High 03-23-2019 [facility] (74546) Comment: Performed By: #### [id number] #### MARCUS RemHemo [address] [place] [address] Potassium [Moles/Vol] 3.5 3.5-5.3 mEq/L Normal 03-23-20 19 [facility] (00 000) Comment: Performed By: #### [id number] #### MARCUS WilcoxHemo [facility] [place] [address] Sodium [Moles/Vol] 138 136-145 mEq/L Normal 03-23-2019 [facility] (00 000) Comment: Performed By: #### [id number] #### MARCUS RemHemo [address] [place] [address] Urea nitrogen [Mass/Vol] 9 6-23 mg/dL Normal 03-23 [facility] (00 000) Comment: Performed By: #### [id number] #### MARCUS RemHemo [address] [place] [address] Urea nitrogen/Creatinine 8.2 5.4-30.0 ratio Normal 03-23 [facility] [Mass ratio] [facility] (84639) Comment: Performed By: #### [id number] #### MARCUS RemHemo [address] [place] [address] .manual abs on 2019 -06-06 Basophil Abs Man 0.0 0.0-0.2 10x3/ Normal 03-23-2019 [facility] (78350) Comment: Order Comment: Order Added b y Discern Expert. Performed By: #### [id number] #### MARCUS WilcoxHemo [address] [place] [address] Eos Abs Man 0.0 0.0-0.5 10x3/ Normal 03-23-2019 [facility] (14868) Comment: Order Comment: Order Added b y Discern Expert. Performed By: #### [id number] #### MARCUS RemHemo [address] [place] [address] Lymph Abs Man 1.6 1.2-3.4 10x3/ Normal 03-23-2019 [facility] (80863) Comment: Order Comment: Order Added b y Discern Expert. Performed By: #### [id number] #### MARCUS JeriHemo [address] [place] [address] [place] Abs Man 0.1 0.0-0.7 10x3/ Normal 03-23-2019 [facility] (27548) Comment: Order Comment: Order Added b y Discern Expert. Performed By: #### [id number] #### MARCUS WilcoxHemo [address] [place] [address] Segs Abs Man 1.3 1.4-6.5 10x3/ Low 03-23-2019 [facility] (24941) Comment: Order Comment: Order Added b y Discern Expert. Performed By: #### [id number] #### MARCUSShawn WilcoxHemo [facility] [place] [address] xr chest ap portable on 2019-03-22 XR Chest AP Exam Date/Time: Normal 03-22-2019 [facility] Portable 03/22/2019 20:26 EDT H ealt System Reason for Exam: (00 000) Chest pain Report STUDY: XR Chest AP Portable; 03/22/2019 8:26 pm INDICATION: Chest pain. COMPARISON: 12/21/2018 ACCESSION NUMBER(S): [id number] ORDERING CLINICIAN: Xuan Garcia FINDINGS: Single portable [...] Signed by: Lacy Alvarez MD Technologist: [facility] troponin-i on 03-22 Troponin I.cardiac 0.01 0.00-0.03 ng/mL Normal 03-22-2019 [facility] [Mass/Vol] [facility] (18843) Comment: Performed By: #### [id number] #### MARCUS WilcoxHemo [facility] [id number] magnesium on 03-22 Magnesium [Mass/Vol] 1.6 1.6-2.4 mg/dL Normal 9 [facility] (00 000) Comment: Performed By: #### [id number] #### MARCUS RemHemo [address] [place] [address] egfr on 2019-03-22 GFR/1.73 sq M predicted >60 mL/min/{1.73_m2} Normal 03-22-2019 [facility] among non-blacks [facility] (39581) (S/P/Bld) [Vol rate/Area] Comment: Order Comment: Order Added b y Discern Expert. Performed By: #### [id number] #### MARCUS RemHemo [address] [place] [address] GFR/1.73 sq M predicted 52 mL/min/1.73 m2 Normal 0 03-22-2019 [facility] among non-blacks [facility] (84737) (S/P/Bld) [Vol rate/Area] Comment: Order Comment: Order Added b y Discern Expert. Performed By: #### [id number] #### MARCUS RemHemo [address] [place] [address] cbc w/ auto diff on 2019-03-22 Erythrocyte distribution 13.5 11.5-14.5 % Normal 03-22 [facility] width (RBC) [Ratio] Health System (85211) Comment: Performed By: #### [id number] #### MARCUSShawn WilcoxHemo [facility] [place] [address] Hematocrit (Bld) [Volume 37.5 36.0-48.0 % Normal 03-22 [facility] (33132) Comment: Performed By: #### [id number] #### MARCUSShawn WilcoxHemo [address] [place] [address] Hemoglobin (Bld) 12.8 12.0-16.0 G/DL Normal 03-22-2019 [facility] [Mass/Vol] Health [facility] (19447) Comment: Performed By: #### [id number] #### [facility] [address] [place] [address] MCH (RBC) [Entitic mass] 30.9 27.0-31.0 pg Normal 03-22 [facility] (00 000) Comment: Performed By: #### [id number] #### [facility] [address] MCHC (RBC) [Mass/Vol] 34.1 33.0-37.0 G/DL Normal 03-22-20 19 [facility] (00 000) Comment: Performed By: #### [id number] #### [facility]US [facility] [address] [place] [address] MCV (RBC) [Entitic vol] 90.6 78.0-100.0 fL Normal 03-22 [facility] (51377) Comment: Performed By: #### [id number] #### [facility]US [facility] [address] [place] [address] Platelet mean volume 8.3 7.4-11.0 fL Normal 9 [facility] (Bld) [Entitic vol] System (60264) Comment: Performed By: #### [id number] #### [facility] [address] [place] [address] Platelets (Bld) [#/Vol] 113 130-400 E3/mcL Low 2018 [facility] (00 000) Comment: Performed By: #### [id number] #### MARCUS WilcoxHemo [address] [place] [address] RBC (Bld) [#/Vol] 4.14 3.90-5.40 E6/mcL Normal 03-22-2019 [facility] () Comment: Performed By: #### [id number] #### MARCUS WilcoxHemo [address] [place] [address] WBC (Bld) [#/Vol] 4.1 3.6-11.0 E3/mcL Normal 03-22-2019 [facility] () Comment: Performed By: #### [id number] #### MARCUS JeriHemo [facility] [place] [address] bmp on 2019-03-22 Anion gap [Moles/Vol] 13 10-20 mEq/L Normal 03-22-20 [facility] () Comment: Performed By: #### [id number] #### MARCUS JeriHemo [facility] [place] [address] Calcium [Mass/Vol] 8.4 8.6-10.3 mg/dL Low 03-22-2019 [facility] (38313) Comment: Performed By: #### [id number] #### MARCUS JeriHemo [facility] [place] [address] Chloride [Moles/Vol] 110 98-107 mEq/L High 9 [facility] () Comment: Performed By: #### [id number] #### MARCUS JeriHemo [address] [place] [address] CO2 [Moles/Vol] 21.0 21.0-32.0 mEq/L Normal 03-22-2019 [facility] () Comment: Performed By: #### [id number] #### MARCUS JeriHemo [address] [place] [address] Creatinine [Mass/Vol] 1.1 0.5-1.1 mg/dL Normal 03-22-20 [facility] (00 000) Comment: Performed By: #### [id number] #### MARCUS RemHemo [address] [place] [address] Glucose [Mass/Vol] 95 70-99 mg/dL Normal 03-22-2019 [facility] (44857) Comment: Performed By: #### [id number] #### MARCUS Kenyon[address] [address] Potassium [Moles/Vol] 4.0 3.5-5.3 mEq/L Normal 03-22-20 19 [facility] (00 000) Comment: Performed By: #### [id number] #### MARCUS Kenyon[address] [address] Sodium [Moles/Vol] 139 136-145 mEq/L Normal 03-22-2019 [facility] (00 000) Comment: Performed By: #### [id number] #### MARCUS Kenyon[address] [address] Urea nitrogen [Mass/Vol] 10 6-23 mg/dL Normal 03-22 [facility] (00 000) Comment: Performed By: #### [id number] #### MARCUS Kenyon[address] [address] Urea nitrogen/Creatinine 9.1 5.4-30.0 ratio Normal 03-22 [facility] [Mass ratio] [facility] (22371) Comment: Performed By: #### [id number] #### MARCUS Kenyon[address] [address] auto diff on 2019-0 6-05 Basophils (Bld) [#/Vol] 0.0 0.0-0.2 E3/mcL Normal 2018 [facility] (61090) Comment: Order Comment: Order Added b y Discern Expert. Performed By: #### [id number] #### MARCUS Kenyono [address] [place] [address] Basophils/100 WBC (Bld) 0.4 0.0-2.0 % Normal 2018 [facility] (00 000) Comment: Order Comment: Order Added b y Discern Expert. Performed By: #### [id number] #### MARCUS Kenyon[address] [address] Eos Absolute 0.1 0.0-0.7 E3/mcL Normal 03-22-2019 [facility] (71819) Comment: Order Comment: Order Added b y Discern Expert. Performed By: #### [id number] #### MARCUS WilcoxHemo [address] [place] [address] Eosinophils/100 WBC (Bld) 2.0 0.0-11.0 % Normal [facility] (00 000) Comment: Order Comment: Order Added b y Discern Expert. Performed By: #### [id number] #### MARCUS WilcoxHemo [address] [place] [address] Lymphocytes (Bld) [#/Vol] 1.1 1.2-3.4 E3/mcL Low [facility] (00 000) Comment: Order Comment: Order Added b y Discern Expert. Performed By: #### [id number] #### MARCUS Kenyono [address] [place] [address] Lymphocytes/100 WBC (Bld) 27.1 20.0-55.0 % Normal [facility] (62241) Comment: Order Comment: Order Added b y Discern Expert. Performed By: #### [id number] #### MARCUS WilcoxHemo [address] [place] [address] [place] Absolute 0.5 0.0-0.7 E3/mcL Normal 03-22-2019 [facility] (55143) Comment: Order Comment: Order Added b y Discern Expert. Performed By: #### [id number] #### MARCUS WilcoxHemo [address] [place] [address] Monocytes/100 WBC (Bld) 11.0 0.0-10.0 % High 2018 [facility] (00 000) Comment: Order Comment: Order Added b y Discern Expert. Performed By: #### [id number] #### MARCUS WilcoxHemo [address] [place] [address] Neutro Absolute 2.5 1.4-6.5 E3/mcL Normal 03-22-2019 [facility] (40303) Comment: Order Comment: Order Added b y Discern Expert. Performed By: #### [id number] #### MARCUS Kenyono [address] [place] [address] Neutro Auto 59.5 37.0-75.0 % Normal 03-22-2019 [facility] (64168) Comment: Order Comment: Order Added erma lizama Discern Expert. Performed By: #### [id number] #### MARCUS Keynoncorky [address] [place] [address] ua complete on 2018 Color (U) Yellow Yellow Normal 03-19-2019 [facility] (73992) Comment: Order Comment: Order Added b y Discern Expert. Performed By: #### [id number] #### MARCUS Kenyoncorky [address] [place] [address] Glucose (U) [Mass/Vol] Negative Negative mg/dL Normal [address] [place], [place] [address]s tem (03886) Comment: Order Comment: Order Added erma lizama Discern Expert. Performed By: #### [id number] #### MARCUS Kenyoncorky [address] [place] [address] Ketones Ql (U) Negative Negative Normal 03-19-2019 [facility] (27909) Comment: Order Comment: Order Added erma lizama Discern Expert. Performed By: #### [id number] #### MARCUS Kenyoncorky [address] [place] [address] RBC (U) [#/Vol] 0-3 0-3 Normal 03-19-2019 [facility] (47619) Comment: Order Comment: Order Added b y Discern Expert. Performed By: #### [id number] #### MARCUS Kenyono [address] [place] [address] UA Blood Negative Negative Normal 03-19-2019 [facility] (21246) Comment: Order Comment: Order Added b y Discern Expert. Performed By: #### [id number] #### MARCUS Kenyono [address] [place] [address] UA Clarity SltCloudy Clear Abnormal 03-19-2019 [facility] (78072) Comment: Order Comment: Order Added b y Discern Expert. Performed By: #### [id number] #### MARCUS JeriHemo [facility] [place] [address] UA Hyal Cast 3-5 0-2 Abnormal 03-19-2019 [facility] (39795) Comment: Order Comment: Order Added erma Aldana Expert. Performed By: #### [id number] #### MARCUSShawn Luong [address] [place] [address] UA Leuk Est 1+ Negative Abnormal 03-19-2019 [facility] (57395) Comment: Order Comment: Order Added erma Aldana Expert. Performed By: #### [id number] #### MARCUSShawn Luong [address] [place] [address] UA Mucous Trace Trace Abnormal 03-19-2019 [facility] (30092) Comment: Order Comment: Order Added erma Aldana Expert. Performed By: #### [id number] #### MARCUS Luong [address] [place] [address] UA Nitrite Negative Negative Normal 03-19-2019 [facility] (57135) Comment: Order Comment: Order Added erma Aldana Expert. Performed By: #### [id number] #### MACRUSShawn Luong [address] [place] [address] UA pH 5.0 4.6-8.0 Normal 03-19-2019 [facility] (84253) Comment: Order Comment: Order Added erma Aldana Expert. Performed By: #### [id number] #### MARCUSShawn Luong [address] [place] [address] UA Protein Negative Negative Normal 03-19-2019 [facility] (82874) Comment: Order Comment: Order Added erma Aldana Expert. Performed By: #### [id number] #### MARCUSShawn Luong [address] [place] [address] UA Spec Grav 1.010 1.003-1.030 Normal 03-19-2019 [facility] (50389) Comment: Order Comment: Order Added erma Aldana Expert. Performed By: #### [id number] #### MARCUSShawn Luong [address] [place], [place] [address] UA Squam Epithelial 10-20 0-5 Abnormal 03-19-2019 [facility] (53952) Comment: Order Comment: Order Added erma Aldana Expert. Performed By: #### [id number] #### MARCUS Luong [address] [place] [address] UA Urobilinogen Negative Normal 03-19-2019 [facility] (92778) Comment: Order Comment: Order Added erma Aldana [...] laboratory within 24 hours. Performed By: #### [id number] #### MARCUS JeriHemo [address] [place] [address] UA WBC 0-5 0-5 Normal 03-19-2019 [facility] (52074) Comment: Order Comment: Order Added erma Aldana Expert. Performed By: #### [id number] #### MARCUS JeriKarlo [facility] [place] [address] Urobilinogen Qn (U) Negative Negative Normal 03-19-2019 [facility] (00 000) Comment: Order Comment: Order Added erma Aldana Expert. Performed By: #### [id number] #### MARCUS JeriHemo [facility] [place] [address] ionized calcium poc order on 2019-03-18 Ionized Calcium POC Order Collected Normal [facility] (00 000) Comment: Performed By: #### [id number] #### MARCUS JeriHemo [facility] [place] [address] ionized calcium lvl on 2019-03-18 Ionized Ca. 4.5 4.5-5.6 mg/dL Normal 03-18-2019 [facility] (39721) Comment: Performed By: #### [id number] #### MARCUS JeriHemo [facility] [place] [address] egfr on 2019-03-18 GFR/1.73 sq M predicted 56 mL/min/1.73 m2 Normal 0 03-18-2019 [facility] among non-blacks [facility] (80175) (S/P/Bld) [Vol rate/Area] Comment: Order Comment: Order Added erma Aldana Expert. Performed By: #### [id number] #### MARCUS RemHemo [address] [place] [address] GFR/1.73 sq M predicted 46 mL/min/1.73 m2 Normal 0 03-18-2019 [facility] among non-blacks [facility] (60513) (S/P/Bld) [Vol rate/Area] Comment: Order Comment: Order Added b y Discern Expert. Performed By: #### [id number] #### MARCUS RemHemo [address] [place] [address] ct head or brain w/o contrast on 2019-03-18 CT Head or Brain Exam Date/Time: Normal 019 [facility] w/o Contrast 03/18/2019 21:34 EDT Health System Reason for Exam: (00 000) Altered mental status Report STUDY: CT Head or Brain w/o Contrast; 03/18/2019 9:34 pm INDICATION: Altered mental status. COMPARISON: 03/16/2019 ACCESSION NUMBER(S): [id number] ORDERING CLINICIAN: Ac Gao TECHNIQUE: Noncontrast CT [...] Erythrocyte distribution 14.1 11.5-14.5 % Normal 03-18 [facility] width (RBC) [Ratio] [facility] System (08871) Comment: Performed By: #### [id number] #### MARCUS Kenyono [facility] [place] [address] Hematocrit (Bld) [Volume 40.4 36.0-48.0 % Normal 03-18 [facility] (86730) Comment: Performed By: #### [id number] #### MARCUS WilcoxHemo [facility] [place] [address] Hemoglobin (Bld) 13.4 12.0-16.0 G/DL Normal 03-18-2019 [facility] [Mass/Vol] [facility] (25358) Comment: Performed By: #### [id number] #### MARCUS WilcoxHemo [facility] [place] [address] MCH (RBC) [Entitic mass] 30.2 27.0-31.0 pg Normal 03-18 [facility] (00 000) Comment: Performed By: #### [id number] #### MARCUSShawn WilcoxHemo [address] [place] [address] MCHC (RBC) [Mass/Vol] 33.1 33.0-37.0 G/DL Normal 03-18-20 19 [facility] (00 000) Comment: Performed By: #### [id number] #### MARCUSShawn WilcoxHemo [address] [place] [address] MCV (RBC) [Entitic vol] 91.3 78.0-100.0 fL Normal 03-18 [facility] (44588) Comment: Performed By: #### [id number] #### MARCUSShawn WilocxHemo [address] [place] [address] Platelet mean volume 8.0 7.4-11.0 fL Normal 9 [facility] (Bld) [Entitic vol] System (12471) Comment: Performed By: #### [id number] #### MARCUSShawn WilcoxHemo [facility] [place] [address] Platelets (Bld) [#/Vol] 123 130-400 E3/mcL Low 2018 [facility] (00 000) Comment: Performed By: #### [id number] #### MARCUS [facility] [place] [address] RBC (Bld) [#/Vol] 4.43 3.90-5.40 E6/mcL Normal 03-18-2019 [facility] () Comment: Performed By: #### [id number] #### MARCUS JeriHemo [address] [place] [address] WBC (Bld) [#/Vol] 4.3 3.6-11.0 E3/mcL Normal 03-18-2019 [facility] () Comment: Performed By: #### [id number] #### MARCUS RemHemo [address] [place] [address] bmp on 2019-03-18 Anion gap [Moles/Vol] 11 10-20 mEq/L Normal 03-18-20 [facility] () Comment: Performed By: #### [id number] #### MARCUS JeriHemo [facility] [place] [address] Calcium [Mass/Vol] 8.8 8.6-10.3 mg/dL Normal 03-18-2019 [facility] () Comment: Performed By: #### [id number] #### MARCUS RemHemo [address] [place] [address] Chloride [Moles/Vol] 110 98-107 mEq/L High [facility] () Comment: Performed By: #### [id number] #### MARCUS JeriHemo [address] [place] [address] CO2 [Moles/Vol] 20.0 21.0-32.0 mEq/L Low 03-18-2019 [facility] (78322) Comment: Performed By: #### [id number] #### MARCUS RemHemo [address] [place] [address] Creatinine [Mass/Vol] 1.2 0.5-1.1 mg/dL High 03-18-20 [facility] ( 000) Comment: Performed By: #### [id number] #### MARCUS RemHemo [address] [place] [address] Glucose [Mass/Vol] 90 70-99 mg/dL Normal 03-18-2019 [facility] (14242) Comment: Performed By: #### [id number] #### MARCUS Kenyono [facility] [place] [address] Potassium [Moles/Vol] 4.0 3.5-5.3 mEq/L Normal 03-18-20 19 [facility] (00 000) Comment: Performed By: #### [id number] #### MARCUSShawn Kenyono [facility] [place] [address] Sodium [Moles/Vol] 137 136-145 mEq/L Normal 03-18-2019 [facility] (00 000) Comment: Performed By: #### [id number] #### MARCUSShawn Kenyono [address] [place] [address] Urea nitrogen [Mass/Vol] 9 6-23 mg/dL Normal 03-18 [facility] (00 000) Comment: Performed By: #### [id number] #### MARCUSShawn Wilcox[address] [address] Urea nitrogen/Creatinine 7.5 5.4-30.0 ratio Normal 03-18 [facility] [Mass ratio] [facility] (80380) Comment: Performed By: #### [id number] #### MARCUSShawn Kenyon[address] [address] auto diff on 6- Basophils (Bld) [#/Vol] 0.0 0.0-0.2 E3/mcL Normal 2018 [facility] Sys tem (68832) Comment: Order Comment: Order Added b y Discern Expert. Performed By: #### [id number] #### MARCUSShawn Kenyono [address] [place] [address] Basophils/100 WBC (Bld) 0.5 0.0-2.0 % Normal 2018 [facility] (00 000) Comment: Order Comment: Order Added b y Discern Expert. Performed By: #### [id number] #### MARCUS Kenyono [facility] [place] [address] Eos Absolute 0.1 0.0-0.7 E3/mcL Normal 03-18-2019 [facility] (68104) Comment: Order Comment: Order Added b y Discern Expert. Performed By: #### [id number] #### MARCUS WilcoxHemo [address] [place] [address] Eosinophils/100 WBC (Bld) 2.2 0.0-11.0 % Normal [facility] (00 000) Comment: Order Comment: Order Added b y Discern Expert. Performed By: #### [id number] #### MARCUS WilcoxHemo [facility] [place] [address] Lymphocytes (Bld) [#/Vol] 1.3 1.2-3.4 E3/mcL Normal [facility] tem (94524) Comment: Order Comment: Order Added b y Discern Expert. Performed By: #### [id number] #### MARCUS WilcoxHemo [address] [place] [address] Lymphocytes/100 WBC (Bld) 30.1 20.0-55.0 % Normal [facility] tem (18142) Comment: Order Comment: Order Added b y Discern Expert. Performed By: #### [id number] #### MARCUS RemHemo [address] [place] [address] [place] Absolute 0.4 0.0-0.7 E3/mcL Normal 03-18-2019 [facility] (20588) Comment: Order Comment: Order Added b y Discern Expert. Performed By: #### [id number] #### MARCUS WilcoxHemo [address] [place] [address] Monocytes/100 WBC (Bld) 9.9 0.0-10.0 % Normal 2018 [facility] (00 000) Comment: Order Comment: Order Added b y Discern Expert. Performed By: #### [id number] #### MARCUS RemHemo [address] [place] [address] Neutro Absolute 2.5 1.4-6.5 E3/mcL Normal 03-18-2019 [facility] (52821) Comment: Order Comment: Order Added b y Discern Expert. Performed By: #### [id number] #### [facility] RemHemo [address] [place] [address] Neutro Auto 57.3 37.0-75.0 % Normal 03-18-2019 [facility] (79800) Comment: Order Comment: Order Added erma Aldana Expert. Performed By: #### [id number] #### MARCUS Wilcoxwunderloopo [address] [place], [place] [id number] lactic acid on 2018 Lactate [Moles/Vol] 1.2 0.4-2.0 mmol/L Normal 03-16-2019 [facility] (00 000) Comment: Performed By: #### [id number] #### [place]US [place] [id number] egfr on 2019-03-16 GFR/1.73 sq M predicted 58 mL/min/1.73 m2 Normal 0 03-16-2019 [facility] non-blacks [facility] (85220) (S/P/Bld) [Vol rate/Area] Comment: Order Comment: Order Added erma y Katya Expert. Performed By: #### [id number] #### [place] [address] GFR/1.73 sq M predicted 48 mL/min/1.73 m2 Normal 0 03-16-2019 [facility] non-[facility] (64528) (S/P/Bld) [Vol rate/Area] Comment: Order Comment: Order Added erma Aldana Expert. Performed By: #### [id number] #### [place] [address] [place] spine cervical w/o contrast on 2019-03-16 CT Spine Exam Date/Time: Normal 03-16-2019 [facility] Cervical w/o 03/16/2019 00:08 EDT [facility] Contrast Reason for Exam: Sys tem (89532) Trauma Report STUDY: CT Spine Cervical w/o Contrast; 03/16/2019 12:46 am INDICATION: Trauma. COMPARISON: None. ACCESSION NUMBER(S): [id number] ORDERING CLINICIAN: Caren Lozano TECHNIQUE: Axial noncontrast [...] CT Head or Brain Exam Date/Time: Normal [address] [place] [address] w/o Contrast 03/16/2019 00:08 [facility] Reason for Exam: (00 000) Injury Report STUDY: CT Head or Brain w/o Contrast; 03/16/2019 12:46 am INDICATION: Injury. COMPARISON: 12/01/2018 ACCESSION NUMBER(S): [id number] ORDERING CLINICIAN: Caren Lozano TECHNIQUE: Noncontrast CT [...] Albumin [Mass/Vol] 4.2 3.4-5.0 gm/dL Normal 03-16-2019 [facility] (00 000) Comment: Performed By: #### [id number] #### MARCUS RemHemo [address] [place] [address] Albumin/Globulin [Mass 1.7 1.1-1.9 ratio Normal 019 [facility] (08621) Comment: Performed By: #### [id number] #### MARCUS RemHemo [address] [place] [address] Alk Phos 104 33-110 Int._Unit/L Normal 03-16-2019 [facility] (80495) Comment: Performed By: #### [id number] #### MARCUS RemHemo [address] [place] [address] ALT [Catalytic 31 7-45 Int._Unit/L Normal 03-16-2019 [facility] (01235) Comment: Performed By: #### [id number] #### MARCUS RemHemo [address] [place] [address] Anion gap [Moles/Vol] 12 10-20 mEq/L Normal 03-16-20 19 [facility] (00 000) Comment: Performed By: #### [id number] #### MARCUS RemHemo [address] [place] [address] AST [Catalytic 37 9-39 Int._Unit/L Normal 03-16-2019 [facility] (69198) Comment: Performed By: #### [id number] #### MARCUS RemHemo [address] [place] [address] Bili Total 0.79 0.00-1.20 mg/dL Normal 03-16-2019 [facility] (51010) Comment: Performed By: #### [id number] #### MARCUS RemHemo [address] [place] [address] Calcium [Mass/Vol] 8.8 8.6-10.3 mg/dL Normal 03-16-2019 [facility] (00 000) Comment: Performed By: #### [id number] #### MARCUS RemHemo [address] [place] [address] Chloride [Moles/Vol] 110 98-107 mEq/L High 9 [facility] (00 000) Comment: Performed By: #### [id number] #### MARCUS WilcoxHemo [address] [place] [address] CO2 [Moles/Vol] 20.0 21.0-32.0 mEq/L Low 03-16-2019 [facility] (36230) Comment: Performed By: #### [id number] #### MARCUS WilcoxHemo [address] [place] [address] Creatinine [Mass/Vol] 1.2 0.5-1.1 mg/dL High 03-16-20 [facility] ( 000) Comment: Performed By: #### [id number] #### MARCUS RemHemo [facility]5 [place] [address] Globulin (S) [Mass/Vol] 3.0 2.0-4.0 G/DL Normal 2018 [facility] () Comment: Performed By: #### [id number] #### MARCUS WilcoxHemo [facility]5 [place] [address] Glucose [Mass/Vol] 114 70-99 mg/dL High 03-16-2019 [facility] (44456) Comment: Performed By: #### [id number] #### MARCUS WilcoxHemo [facility] [place] [address] Potassium [Moles/Vol] 3.4 3.5-5.3 mEq/L Low 03-16-20 [facility] ( 000) Comment: Performed By: #### [id number] #### MARCUS WilcoxHemo [facility] [place] [address] Protein [Mass/Vol] 6.7 6.4-8.2 gm/dL Normal 03-16-2019 [facility] ( 000) Comment: Performed By: #### [id number] #### MARCUS RemHemo [address] [place] [address] Sodium [Moles/Vol] 139 136-145 mEq/L Normal 03-16-2019 [facility] ( 000) Comment: Performed By: #### [id number] #### MARCUS RemHemo [facility] [place] [address] Urea nitrogen [Mass/Vol] 9 6-23 mg/dL Normal 03-16 [facility] (00 000) Comment: Performed By: #### [id number] #### MARCUS WilcoxHemo [facility] [place] [address] Urea nitrogen/Creatinine 7.5 5.4-30.0 ratio Normal 03-16 [facility] [Mass ratio] Health System (09664) Comment: Performed By: #### [id number] #### MARCUS WilcoxHemo [facility] [place] [address] cbc w/ auto diff on 2019-03-16 Erythrocyte distribution 13.9 11.5-14.5 % Normal 03-16 [facility] width (RBC) [Ratio] Health System (71916) Comment: Performed By: #### [id number] #### MARCUS JeriHemo [address] [place] [address] Hematocrit (Bld) [Volume 40.6 36.0-48.0 % Normal 03-16 [facility]] Health Sys tem (41506) Comment: Performed By: #### [id number] #### MARCUS JeriHemo [address] [place] [address] Hemoglobin (Bld) 13.5 12.0-16.0 G/DL Normal 03-16-2019 [facility] [Mass/Vol] Health Sy stem (54259) Comment: Performed By: #### [id number] #### MARCUS WilcoxHemo [facility] [place] [address] MCH (RBC) [Entitic mass] 30.4 27.0-31.0 pg Normal 03-16 [facility] (00 000) Comment: Performed By: #### [id number] #### MARCUS RemHemo [facility]5 [place] [address] MCHC (RBC) [Mass/Vol] 33.3 33.0-37.0 G/DL Normal 03-16-20 19 [facility] (00 000) Comment: Performed By: #### [id number] #### MARCUSShawn WilcoxHemo [facility] [place] [address] MCV (RBC) [Entitic vol] 91.4 78.0-100.0 fL Normal 03-16 [facility] Sys tem (87404) Comment: Performed By: #### [id number] #### MARCUS Kenyono [facility] [place] [address] Platelet mean volume 8.3 7.4-11.0 fL Normal 9 [facility] (Bld) [Entitic vol] System (58728) Comment: Performed By: #### [id number] #### MARCUS Kenyono [address] [place] [address] Platelets (Bld) [#/Vol] 118 130-400 E3/mcL Low 2018 [facility] ( 000) Comment: Performed By: #### [id number] #### MARCUS Kenyono [address] [place] [address] RBC (Bld) [#/Vol] 4.45 3.90-5.40 E6/mcL Normal 03-16-2019 [facility] () Comment: Performed By: #### [id number] #### MARCUSShawn Wilcox[address] [address] WBC (Bld) [#/Vol] 4.4 3.6-11.0 E3/mcL Normal 03-16-2019 S [facility] () Comment: Performed By: #### [id number] #### AMRCUS Kenyon[address] [address] auto diff on 2019-0 5-30 Basophils (Bld) [#/Vol] 0.0 0.0-0.2 E3/mcL Normal 2018 [facility] Sys tem (66991) Comment: Order Comment: Order Added b y Discern Expert. Performed By: #### [id number] #### MARCUS WilcoxHemo [facility] [place] [address] Basophils/100 WBC (Bld) 0.9 0.0-2.0 % Normal 2018 [facility] (00 000) Comment: Order Comment: Order Added b y Discern Expert. Performed By: #### [id number] #### MARCUS WilcoxHemo [address] [place] [address] Eos Absolute 0.1 0.0-0.7 E3/mcL Normal 03-16-2019 [facility] (17622) Comment: Order Comment: Order Added b y Discern Expert. Performed By: #### [id number] #### MARCUS WilcoxHemo [address] [place] [address] Eosinophils/100 WBC (Bld) 2.6 0.0-11.0 % Normal 02-17 [facility] (00 000) Comment: Order Comment: Order Added b y Discern Expert. Performed By: #### [id number] #### MARCUS RemHemo [address] [place] [address] Lymphocytes (Bld) [#/Vol] 1.0 1.2-3.4 E3/mcL Low 02-17 [facility] (00 000) Comment: Order Comment: Order Added b y Discern Expert. Performed By: #### [id number] #### MARCUS WilcoxHemo [address] [place] [address] Lymphocytes/100 WBC (Bld) 23.0 20.0-55.0 % Normal 02-17 [facility] Sys tem (88207) Comment: Order Comment: Order Added b y Discern Expert. Performed By: #### [id number] #### MARCUS WilcoxHemo [address] [place] [address] [place] Absolute 0.3 0.0-0.7 E3/mcL Normal 03-16-2019 [facility] (10691) Comment: Order Comment: Order Added b y Discern Expert. Performed By: #### [id number] #### MARCUS WilcoxHemo [address] [place] [address] Monocytes/100 WBC (Bld) 6.8 0.0-10.0 % Normal 2018 [facility] (00 000) Comment: Order Comment: Order Added b y Discern Expert. Performed By: #### [id number] #### MARCUS WilcoxHemo [address] [place] [address] Neutro Absolute 2.9 1.4-6.5 E3/mcL Normal 03-16-2019 [facility] (13704) Comment: Order Comment: Order Added b y Discern Expert. Performed By: #### [id number] #### MARCUS RemHemo [address] [place] [address] Neutro Auto 66.7 37.0-75.0 % Normal 03-16-2019 [facility] (41376) Comment: Order Comment: Order Added erma Aldana Expert. Performed By: #### [id number] #### MARCUS RemHemo [address] [place] [address] No panel information on 2019-03-16 Aleksey Longoria MD 03-16-2019 [facility] 03/16/2019 4:19 PM ( 46327) [facility] EEG Report Reason for EEG: [...] conc 84 65 - 99 mg/dL 03-16-2019 [facility] (83831) Interpretation and Normal 03-16-2019 [facility] review of (36537) laboratory results Interpretation and Abnormal 03-16-2019 [facility] review of (94772) laboratory results Valproate mass conc <3 OTH - ug/mL Low 03-16-2019 [facility] OTH (58676) Cobalamin (Vitamin 354 193 - pg/mL 03-16-2019 [facility] B12) mass conc 986 (4321 5) Folate mass conc 6.9 3.1 - ng/mL [facility]-16[facility] (69842[facility] Comment: Deficient <2.2 Borderline 2.2 - 3.0 Excessive >17.5 Interpretation and Normal 03-16-2019 [facility] review of laboratory (25653) results Interpretation and Normal 03-16-2019 [facility] review of laboratory (44925) results Thyrotropin Qn 2.12 OTH - OTH m[IU]/L 03-16-2019 [facility] (38320) This order has 03-16-2019 [facility] been (59147) auto-finalized and does not contain a result. This order has 03-16-2019 [facility] (14566) auto-finalized and does not contain a result. ua complete on 2018 Color (U) Yellow Normal 03-11-2019 [facility] (75431) Comment: Performed By: #### [id number] #### MARCUS RemHemo [address] [place] [address] Glucose (U) [Mass/Vol] Negative Negative mg/dL Normal 019 [facility] Sys tem (10007) Comment: Performed By: #### [id number] #### MARCUS RemHemo [address] [place] [address] Ketones Ql (U) Negative Negative Normal 03-11-2019 [facility] (58053) Comment: Performed By: #### [id number] #### MARCUS RemHemo [address] [place] [address] RBC (U) [#/Vol] 0-3 0-3 Normal 03-11-2019 [facility] (44354) Comment: Performed By: #### [id number] #### MARCUS RemHemo [address] [place] [address] UA Blood Negative Negative Normal 03-11-2019 [facility] (40174) Comment: Performed By: #### [id number] #### MARCUS RemHemo [address] [place] [address] UA Bacteria Trace None Abnormal 03-11-2019 [facility] (73353) Comment: Performed By: #### [id number] #### MARCUS RemHemo [facility] [place] [address] UA Clarity Clear Clear Normal 03-11-2019 [facility] (77677) Comment: Performed By: #### [id number] #### MARCUS RemHemo [address] [place] [address] UA Leuk Est Negative Negative Normal 03-11-2019 [facility] (57099) Comment: Performed By: #### [id number] #### MARCUS RemHemo [address] [place] [address] UA Mucous Trace Trace Abnormal 03-11-2019 [facility] (54534) Comment: Performed By: #### [id number] #### MARCUS WilcoxHemo [address] [place] [address] UA Nitrite Negative Negative Normal 03-11-2019 [facility] (36191) Comment: Performed By: #### [id number] #### MARCUS Kenyono [facility] [place] [address] UA pH 5.0 4.6-8.0 Normal 03-11-2019 [facility] (19166) Comment: Performed By: #### [id number] #### MARCUS WilcoxHemo [facility] [place] [address] UA Protein Negative Negative Normal 03-11-2019 [facility] (54811) Comment: Performed By: #### [id number] #### MARCUS WilcoxHemo [facility] [place] [address] UA Spec Grav 1.012 1.003-1.030 Normal 03-11-2019 [facility] (15452) Comment: Performed By: #### [id number] #### MARCUS WilcoxHemo [address] [place] [address] UA Squam Epithelial 10-20 0-5 Abnormal 03-11-2019 [facility] (44054) Comment: Performed By: #### [id number] #### MARCUS WilcoxHemo [address] [place] [address] UA Urobilinogen Negative Normal 03-11-2019 [facility] (47457) Comment: Result Comment: Due to a man ufacturing issue, low positive urobilinogen results may be fasely positi ve. Correlate with urine bilirubin and additional clinical/laborato ry findings to assess the risk of hemolytic anemia or liver disease. If clinically indicated, repeat testing with an alternate method is availabl e by contacting the laboratory within 24 hours. Performed By: #### [id number] #### MARCUS WilcoxHemo [facility] [place] [address] UA WBC 0-5 0-5 Normal 03-11-2019 [facility] (41480) Comment: Performed By: #### [id number] #### MARCUS WilcoxHemo [facility] [place] [address] Urobilinogen Qn (U) Negative Negative Normal 03-11-2019 [facility] (00 000) Comment: Performed By: #### [id number] #### MARCUS Kenyono [facility] [place] [address] troponin-i on 03-11 Troponin I.cardiac 0.01 0.00-0.03 ng/mL Normal 03-11-2019 [facility] [Mass/Vol] Health Sy stem (86344) Comment: Performed By: #### [id number] #### MARCUS Kenyono [facility] [place] [address] egfr on 2019-03-11 GFR/1.73 sq M predicted 58 mL/min/1.73 m2 Normal 0 03-11-2019 [facility] among non-blacks [facility] (34024) (S/P/Bld) [Vol rate/Area] Comment: Order Comment: Order Added b y Katya Expert. Performed By: #### [id number] #### MARCUS [place] [id number] GFR/1.73 sq M predicted 48 mL/min/1.73 m2 Normal 0 03-11-2019 [facility] among non-blacks [facility] (45463) (S/P/Bld) [Vol rate/Area] Comment: Order Comment: Order Added b y Katya Expert. Performed By: #### [id number] #### MARCUS Kenyono [facility] [place] [address] cbc w/ auto diff on 2019-03-11 Erythrocyte distribution 13.9 11.5-14.5 % Normal 03-11 [facility] width (RBC) [Ratio] Health System (06505) Comment: Performed By: #### [id number] #### MARCUS WilcoxHemo [facility] [place] [address] Hematocrit (Bld) [Volume 37.4 36.0-48.0 % Normal 03-11 [facility] fraction] Health Sys tem (86621) Comment: Performed By: #### [id number] #### MARCUS WilcoxHemo [facility] [place] [address] Hemoglobin (Bld) 12.4 12.0-16.0 G/DL Normal 03-11-2019 [facility] [Mass/Vol] Health Sy stem (66814) Comment: Performed By: #### [id number] #### MARCUS WilcoxHemo [facility] [place] [address] MCH (RBC) [Entitic mass] 30.2 27.0-31.0 pg Normal 03-11 [facility] () Comment: Performed By: #### [id number] #### MARCUS WilcoxKarlo [address] [place] [address] MCHC (RBC) [Mass/Vol] 33.1 33.0-37.0 G/DL Normal 03-11-20 19 [facility] () Comment: Performed By: #### [id number] #### MARCUS JeriHemo [facility] [place] [address] MCV (RBC) [Entitic vol] 91.2 78.0-100.0 fL Normal 03-11 [facility] Sys tem (82047) Comment: Performed By: #### [id number] #### MARCUS JeriHemo [address] [place] [address] Platelet mean volume 8.1 7.4-11.0 fL Normal 9 [facility] (Bld) [Entitic vol] System (91303) Comment: Performed By: #### [id number] #### MARCUS WilcoxHemo [facility] [place] [address] Platelets (Bld) [#/Vol] 120 130-400 E3/mcL Low 2018 [facility] () Comment: Performed By: #### [id number] #### MARCUS JeriHemo [address] [place] [address] RBC (Bld) [#/Vol] 4.11 3.90-5.40 E6/mcL Normal 03-11-2019 [facility] () Comment: Performed By: #### [id number] #### MARCUSShawn WilcoxHemo [facility] [place] [address] WBC (Bld) [#/Vol] 3.6 3.6-11.0 E3/mcL Normal 03-11-2019 [facility] () Comment: Performed By: #### [id number] #### MARCUS RemHemo [address] [place] [address] bmp on 2019-03-11 Anion gap [Moles/Vol] 11 10-20 mEq/L Normal 03-11-20 [facility] () Comment: Performed By: #### [id number] #### MARCUS RemHemo [address] [place] [address] Calcium [Mass/Vol] 8.4 8.6-10.3 mg/dL Low 03-11-2019 [facility] (90429) Comment: Performed By: #### [id number] #### MARCUS RemHemo [address] [place] [address] Chloride [Moles/Vol] 110 98-107 mEq/L High [facility] () Comment: Performed By: #### [id number] #### MARCUS RemHemo [address] [place] [address] CO2 [Moles/Vol] 19.0 21.0-32.0 mEq/L Low 03-11-2019 [facility] (68189) Comment: Performed By: #### [id number] #### MARCUS RemHemo [address] [place] [address] Creatinine [Mass/Vol] 1.2 0.5-1.1 mg/dL High 03-11-20 [facility] ( 000) Comment: Performed By: #### [id number] #### MARCUS RemHemo [address] [place] [address] Glucose [Mass/Vol] 88 70-99 mg/dL Normal 03-11-2019 [facility] (97389) Comment: Performed By: #### [id number] #### MARCUS RemHemo [address] [place] [address] Potassium [Moles/Vol] 3.8 3.5-5.3 mEq/L Normal 03-11-20 [facility] ( 000) Comment: Performed By: #### [id number] #### MACRUS RemHemo [address] [place] [address] Sodium [Moles/Vol] 136 136-145 mEq/L Normal 03-11-2019 [facility] () Comment: Performed By: #### [id number] #### MARCUS WilcoxHemo [address] [place] [address] Urea nitrogen [Mass/Vol] 12 6-23 mg/dL Normal 03-11 [facility] () Comment: Performed By: #### [id number] #### MARCUSShawn Wilcox[address] [address] Urea nitrogen/Creatinine 10.0 5.4-30.0 ratio Normal 03-11 [facility] [Mass ratio] [facility] (32168) Comment: Performed By: #### [id number] #### [address] [address] auto diff on 03-11 Basophils (Bld) [#/Vol] 0.0 0.0-0.2 E3/mcL Normal 2018 [facility] Sys tem () Comment: Order Comment: Order Added b y Discern Expert. Performed By: #### [id number] #### MARCUS WilcoxHemo [address] [place] [address] Basophils/100 WBC (Bld) 0.3 0.0-2.0 % Normal 2018 [facility] () Comment: Order Comment: Order Added b y Discern Expert. Performed By: #### [id number] #### MARCUS WilcoxHemo [address] [place] [address] 69508 Eos Absolute 0.1 0.0-0.7 E3/mcL Normal 03-11-2019 [facility] () Comment: Order Comment: Order Added b y Discern Expert. Performed By: #### [id number] #### [facility] [address] [place] [address] 97971 Eosinophils/100 WBC (Bld) 3.7 0.0-11.0 % Normal 02-16 [facility] () Comment: Order Comment: Order Added b y Discern Expert. Performed By: #### [id number] #### [facility] [address] [place] [address] 37735 Lymphocytes (Bld) [#/Vol] 1.0 1.2-3.4 E3/mcL Low 02-16 [facility] (00 000) Comment: Order Comment: Order Added erma lizama Discern Expert. Performed By: #### [id number] #### MARCUS WilcoxHemo [address] [place] [address] 66465 Lymphocytes/100 WBC (Bld) 28.2 20.0-55.0 % Normal 02-16 [facility] Sys tem (46218) Comment: Order Comment: Order Added b y Discern Expert. Performed By: #### [id number] #### MARCUS JeriHemo [address] [place] [address] 54919 [place] Absolute 0.3 0.0-0.7 E3/mcL Normal 03-11-2019 [facility] (23366) Comment: Order Comment: Order Added b y Discern Expert. Performed By: #### [id number] #### MARCUSShawn WilcoxHemo [address] [place] [address] 18596 Monocytes/100 WBC (Bld) 8.9 0.0-10.0 % Normal 2018 [facility] (00 000) Comment: Order Comment: Order Added b y Discern Expert. Performed By: #### [id number] #### MARCUS WilcoxHemo [facility] [place] [address] Neutro Absolute 2.1 1.4-6.5 E3/mcL Normal 03-11-2019 [facility] (08003) Comment: Order Comment: Order Added b y Discern Expert. Performed By: #### [id number] #### MARCUSShawn WilcoxHemo [address] [place] [address] 53447 Neutro Auto 58.9 37.0-75.0 % Normal 03-11-2019 [facility] (44097) Comment: Order Comment: Order Added b y Discern Expert. Performed By: #### [id number] #### MARCUSShawn WilcoxHemo [address] [place] [address] 82768 No panel information on 2019-03-08 Ammonia mass conc 30 OTH - OTH ug/dL 03-08-2019 [facility] ([facility]) (61335) Interpretation and Normal 03-08-2019 [facility] review of laboratory (99034) results Interpretation and Normal 03-08-2019 [facility] review of laboratory (16470) results Thyrotropin Qn 2.54 OTH - OTH m[IU]/L 03-08-2019 [facility] (21501) Albumin mass conc 3.6 3.2 - 5.2 g/dL 03-08-2019 [facility] (43433) ALP enzyme act/vol 99 40 - 150 U/L 03-08-2019 [facility] (09443) ALT enzyme act/vol 31 14 - 65 U/L 03-08-2019 [facility] (18941) Anion gap molar conc 12 10 - 20 mmol/L 9 [facility] (26179) AST enzyme act/vol 29 0 - 45 U/L 03-08-2019 [facility] (53373) Bilirubin mass conc 0.6 0 - 1.3 mg/dL 03-08-2019 [facility] (73959) Calcium mass conc 8.4 8.4 - mg/dL 03-08-2019 [facility] 10.2 (29168) Chloride molar conc 114 98 - 108 mmol/L High 03-08-2019 [facility] (81770) Creatinine mass conc 1.31 0.4 - 1.1 mg/dL High 9 [facility] (03895) GFR/1.73 sq M The eGFR should 03-08-2019 [facility] predicted among be used for (4 1933) non-blacks MDRD vol monitoring renal rate/area (S/P/Bld) function only and not for medication dosing. GFR/1.73 sq 49 >=60 Low [facility]/1. (76547) vol rate/area 73 m2 (S/P/Bld) Glucose mass conc 94 65 - 99 mg/dL 03-08-2019 [facility] (08030) HCO3 molar conc 20 21 - 32 mmol/L Low 03-08-2019 [facility] (84113) Interpretation and Abnormal 03-08-2019 [facility] review of laboratory (12274) results Potassium molar conc 4.1 3.5 - 5.1 mmol/L 9 [facility] (45325) Protein mass conc 7.2 6 - 8 g/dL 03-08-2019 [facility] (80967) Sodium molar conc 142 135 - 145 mmol/L 03-08-2019 [facility] (59641) Urea nitrogen mass 16 8 - 25 mg/dL 03-08-2019 [facility] conc (95219) Urea 12.2 OTH - OTH mg/mg [facility]14[facility] mass ratio Valproate mass conc 4 OTH - OTH ug/mL Low 03-08-2019 [facility] (01958) egfr on 2019-02-24 GFR/1.73 sq M predicted 43 mL/min/1.73 m2 Normal 0 02-24-2019 [facility] among non-blacks [facility] (06129) (S/P/Bld) [Vol rate/Area] Comment: Order Comment: Order Added erma Aldana Expert. Performed By: #### [id number] #### MARCUS Kenyono [facility] [place] [address] GFR/1.73 sq M predicted 52 mL/min/1.73 m2 Normal 0 02-24-2019 [facility] among non-blacks [facility] (05853) (S/P/Bld) [Vol rate/Area] Comment: Order Comment: Order Added emra Aldana Expert. Performed By: #### [id number] #### MARCUS WilcoxHemo [address] [place] [address] bmp on 2019-02-24 Anion gap [Moles/Vol] 12 10-20 mEq/L Normal 02-25-20 19 [facility] (00 000) Comment: Performed By: #### [id number] #### MARCUS WilcoxHemo [facility] [place] [address] Calcium [Mass/Vol] 8.9 8.6-10.3 mg/dL Normal 02-24-2019 [facility] (00 000) Comment: Performed By: #### [id number] #### MARCUS WilcoxHemo [address] [place] [address] Chloride [Moles/Vol] 110 98-107 mEq/L High 9 [facility] (00 000) Comment: Performed By: #### [id number] #### MARCUS RemHemo [address] [place] [address] CO2 [Moles/Vol] 21.0 21.0-32.0 mEq/L Normal 02-24-2019 [facility] (00 000) Comment: Performed By: #### [id number] #### MARCUSShawn WilcoxHemo [facility] [place] [address] Creatinine [Mass/Vol] 1.3 0.5-1.1 mg/dL High 02-25-20 [facility] (00 000) Comment: Performed By: #### [id number] #### MARCUSShawn WilcoxHemo [facility] [place] [address] Glucose [Mass/Vol] 89 70-99 mg/dL Normal 02-24-2019 [facility] (99426) Comment: Performed By: #### [id number] #### MARCUSShawn WilcoxHemo [facility] [place] [address] Potassium [Moles/Vol] 4.5 3.5-5.3 mEq/L Normal 02-25-20 [facility] () Comment: Performed By: #### [id number] #### MARCUSShawn WilcoxHemo [address] [place] [address] 17752 Sodium [Moles/Vol] 138 136-145 mEq/L Normal 02-24-2019 [facility] ( 000) Comment: Performed By: #### [id number] #### MARCUS Kostaso [address] [place] [address] 53099 Urea nitrogen [Mass/Vol] 15 6-23 mg/dL Normal 02-24 [facility] (00 000) Comment: Performed By: #### [id number] #### MARCUSShawn WilcoxHemo [facility] [place] [address] Urea nitrogen/Creatinine 11.5 5.4-30.0 ratio Normal 02-24 [facility] [Mass ratio] [facility] (94862) Comment: Performed By: #### [id number] #### MARCUS JeriHemo [facility] [place] [address] zzplt morph on 2018 Platelet morphology finding NORMAL Normal [facility] (d) System (00 000) Comment: Performed By: #### [id number] #### MARCUSShawn WilcoxHemo [address] [place] [address] 34157 Platelets (Bld) [#/Vol] DECREASED Normal 2018 [facility] (00 000) Comment: Performed By: #### [id number] #### MARCUS Kenyono [address] [place] [address] 20544 manual diff on 2018 Band form neutrophils/100 WBC 9 0-1 High 02-23-2019 [facility] (d) System (00 000) Comment: Order Comment: Order Added b y Discern Expert. Performed By: #### [id number] #### MARCUS WilcoxHemo [address] [place] [address] 62017 Basophil Man 0 0-1 % Normal 02-23-2019 [facility] (77638) Comment: Order Comment: Order Added b y Discern Expert. Performed By: #### [id number] #### MARCUS WilcoxHemo [address] [place] [address] 90456 Eosinophils/100 WBC (Bld) 2 0-5 % Normal [facility] (20741) Comment: Order Comment: Order Added b y Discern Expert. Performed By: #### [id number] #### MARCUS WilcoxHemo [address] [place] [address] 19309 Lymphocytes/100 WBC (Bld) 33 14-48 % Normal [facility] (00 000) Comment: Order Comment: Order Added b y Discern Expert. Performed By: #### [id number] #### MARCUS WilcoxHemo [address] [place] [address] 81330 [place] Man 3 0-0 % High 02-23-2019 [facility] (94794) Comment: Order Comment: Order Added b y Discern Expert. Performed By: #### [id number] #### MARCUS RemHemo [address] [place] [address] Monocyte Man 11 1-11 % Normal 02-23-2019 [facility] (33054) Comment: Order Comment: Order Added b y Discern Expert. Performed By: #### [id number] #### MARCUS RemHemo [address] [place] [address] Myelo Man 2 0-0 % High 02-23-2019 [facility] (02663) Comment: Order Comment: Order Added erma y Discern Expert. Performed By: #### [id number] #### MARCUS WilcoxKarlo [address] [place] [address] Ovalocytes 1+ Normal 02-23-2019 [facility] (92448) Comment: Order Comment: Order Added b y Discern Expert. Performed By: #### [id number] #### MARCUSShawn Luong [facility] [place] [address]77[address] Polychromasia 1+ Normal 02-23-2019 [facility] (31606) Comment: Order Comment: Order Added b y Discern Expert. Performed By: #### [id number] #### MARCUSShawn Luong [facility] [place] 4577005 RBC morphology finding SEE MORPHOLOGY Normal [facility] (91004) Comment: Order Comment: Order Added erma y Discern Expert. Performed By: #### [id number] #### MARCUS JeriRahul [address] [place], [place] [address] Segs Man 40 37-75 % Normal 02-23-2019 [facility] (16824) Comment: Order Comment: Order Added b y Discern Expert. Performed By: #### [id number] #### MARCUS Kenyoncorky [address] [place] [address] lamotrigine lvl on 2019-02-23 Lamotrigine Lvl None Detected 2.0-20.0 Normal 02-23-2019 [facility] (00 000) Comment: Result Comment: This test wa s developed and its performance characteristics determined by [facility]. It guzman s not been cleared or approved by the Food and Nabeel g Administration. Detection Limit = 1.0 Performed At: [facility] [id number] Aramis Sharpe MD Performed By: #### [id number] #### MARCUS Kenyono [facility] [place] [id number] egfr on 2019-02-23 GFR/1.73 sq M predicted 50 mL/min/1.73 m2 Normal 0 02-23-2019 [facility] among non-blacks [facility] (37737) (S/P/Bld) [Vol rate/Area] Comment: Order Comment: Order Added b dl Aldana Expert. Performed By: #### [id number] #### MARCUS WilcoxKarlo [facility] [place] [address] GFR/1.73 sq M predicted 60 mL/min/1.73 m2 Normal 0 02-23-2019 [facility] among non-blacks [facility] (51235) (S/P/Bld) [Vol rate/Area] Comment: Order Comment: Order Added erma Aldana Expert. Performed By: #### [id number] #### MARCUSShawn Kenyono [facility] [place] [address] cmp on 2019-02-23 Albumin [Mass/Vol] 3.3 3.4-5.0 gm/dL Low 02-23-2019 [facility] (15312) Comment: Performed By: #### [id number] #### MARCUS Kostaso [address] [place] [address] 46885 Albumin/Globulin [Mass 1.5 1.1-1.9 ratio Normal [facility]] Health Sys tem (20062) Comment: Performed By: #### [id number] #### MARCUS WilcoxHemo [facility] [place] [address] Alk Phos 57 33-110 Int._Unit/L Normal 02-23-2019 [facility] (76072) Comment: Performed By: #### [id number] #### MARCUS JeriHemo [facility] [place] [address] ALT [Catalytic 12 7-45 Int._Unit/L Normal 02-23-2019 [facility] (62052) Comment: Performed By: #### [id number] #### MARCUS JeriHemo [address] [place] [address] Anion gap [Moles/Vol] 10 10-20 mEq/L Normal 02-24-20 19 [facility] (00 000) Comment: Performed By: #### [id number] #### MARCUS WilcoxHemo [address] [place] [address] AST [Catalytic 20 9-39 Int._Unit/L Normal 02-23-2019 [facility] activity/[facility] (46584) Comment: Performed By: #### [id number] #### MARCUS RemHemo [address] [place] [address] Bili Total 0.33 0.00-1.20 mg/dL Normal 02-23-2019 [facility] (59371) Comment: Performed By: #### [id number] #### MARCUS JeriHemo [address] [place] [address] Calcium [Mass/Vol] 8.3 8.6-10.3 mg/dL Low 02-23-2019 [facility] (66076) Comment: Performed By: #### [id number] #### MARCUS JeriHemo [address] [place] [address] Chloride [Moles/Vol] 114 98-107 mEq/L High 9 [facility] () Comment: Performed By: #### [id number] #### MARCUS RemHemo [facility] [place] [address] CO2 [Moles/Vol] 22.0 21.0-32.0 mEq/L Normal 02-23-2019 [facility] (00 000) Comment: Performed By: #### [id number] #### MARCUS RemHemo [facility] [place] [address] Creatinine [Mass/Vol] 1.2 0.5-1.1 mg/dL High 02-24-20 19 [facility] (00 000) Comment: Performed By: #### [id number] #### MARCUS RemHemo [facility] [place] [address] Globulin (S) [Mass/Vol] 2.0 2.0-4.0 G/DL Normal 2018 [facility] (00 000) Comment: Performed By: #### [id number] #### MARCUS RemHemo [address] [place] [address] Glucose [Mass/Vol] 86 70-99 mg/dL Normal 02-23-2019 [facility] (34806) Comment: Performed By: #### [id number] #### MARCUS RemHemo [address] [place] [address] Potassium [Moles/Vol] 4.4 3.5-5.3 mEq/L Normal 02-24-20 19 [facility] (00 000) Comment: Performed By: #### [id number] #### MARCUS WilcoxHemo [address] [place] [address] Protein [Mass/Vol] 5.5 6.4-8.2 gm/dL Low 02-23-2019 [facility] (57607) Comment: Performed By: #### [id number] #### MARCUS JeriHemo [facility] [place] [address] Sodium [Moles/Vol] 141 136-145 mEq/L Normal 02-23-2019 [facility] (00 000) Comment: Performed By: #### [id number] #### MARCUS JeriHemo [facility] [place] [address] Urea nitrogen [Mass/Vol] 11 6-23 mg/dL Normal 02-23 [facility] (00 ) Comment: Performed By: #### [id number] #### MARCUS JeriHemo [address] [place] [address] 55573 Urea nitrogen/Creatinine 9.2 5.4-30.0 ratio Normal 02-23 [facility] [Mass ratio] [facility] (35201) Comment: Performed By: #### [id number] #### MARCUS JeriHemo [facility] [place] [address] cbc w/ auto diff on 2019-02-23 Erythrocyte distribution 14.7 11.5-14.5 % High 02-23 [facility] width (RBC) [Ratio] Health System (38761) Comment: Performed By: #### [id number] #### MARCUS JeriHemo [facility] [place] [address] Hematocrit (Bld) [Volume 35.2 36.0-48.0 % Low 02-23 [facility]] System (00 000) Comment: Performed By: #### [id number] #### MARCUS JeriHemo [facility] [place] [address] Hemoglobin (Bld) 11.7 12.0-16.0 G/DL Low 02-23-2019 [facility] [Mass/Vol] Health Sy stem (46029) Comment: Performed By: #### [id number] #### MARCUS WilcoxKarlo [facility] [place] [address] MCH (RBC) [Entitic mass] 31.2 27.0-31.0 pg High 02-23 [facility] ( 000) Comment: Performed By: #### [id number] #### MARCUS WilcoxKarlo [facility] [place] [address] MCHC (RBC) [Mass/Vol] 33.2 33.0-37.0 G/DL Normal 02-24-20 19 [facility] () Comment: Performed By: #### [id number] #### MARCUS JeriHemo [facility] [place] [address] MCV (RBC) [Entitic vol] 93.8 78.0-100.0 fL Normal 02-23 [facility] tem (27771) Comment: Performed By: #### [id number] #### MARCUS WilcoxHemo [address] [place] [address] 18813 Platelet mean volume 7.6 7.4-11.0 fL Normal 9 [facility] (Bld) [Entitic vol] System (92381) Comment: Performed By: #### [id number] #### MARCUS WilcoxHemo [facility] [place] [address] Platelets (Bld) [#/Vol] 56 130-400 E3/mcL Low 2018 [facility] () Comment: Performed By: #### [id number] #### MARCUS JeriHemo [address] [place] [address] 55428 RBC (Bld) [#/Vol] 3.75 3.90-5.40 E6/mcL Low 02-23-2019 [facility] () Comment: Performed By: #### [id number] #### MARCUSShawn WilcoxHemo [facility] [place] [address] WBC (Bld) [#/Vol] 2.4 3.6-11.0 E3/mcL Low 02-23-2019 [facility] (27001) Comment: Performed By: #### [id number] #### MARCUS Kenyono [facility] [place] [address] c urine on C Urine Final Report: Rare Normal Normal 05-0 [facility] skin joe isolated System (48700) Comment: Performed By: #### [id number] #### MARCUS Kenyono [facility] [place] [address] ammonia on Ammonia (P) [Mass/Vol] 53 16-53 mcmol/L Normal 019 [facility] (00 000) Comment: Performed By: #### [id number] #### MARCUS Kenyono [address] [place] [address] .manual abs on 2018 Basophil Abs Man 0.0 0.0-0.2 10x3/ Normal 02-23-2019 [facility] (40386) Comment: Order Comment: Order Added b y Discern Expert. Performed By: #### [id number] #### MARCUS Kostascorky [address] [place] [address] Eos Abs Man 0.0 0.0-0.5 10x3/ Normal 02-23-2019 [facility] (00684) Comment: Order Comment: Order Added b y Discern Expert. Performed By: #### [id number] #### MARCUS Kenyono [address] [place] [address] Lymph Abs Man 0.8 1.2-3.4 10x3/ Low 02-23-2019 [facility] (46760) Comment: Order Comment: Order Added b y Discern Expert. Performed By: #### [id number] #### MARCUS Kostaso [address] [place] [address] 38378 [place] Abs Man 0.3 0.0-0.7 10x3/ Normal 02-23-2019 [facility] (43379) Comment: Order Comment: Order Added b y Discern Expert. Performed By: #### [id number] #### MARCUS Kostaso [address] [place], [place] [address] Segs Abs Man 1.0 1.4-6.5 10x3/ Low 02-23-2019 [facility] (89999) Comment: Order Comment: Order Added b y Discern Expert. Performed By: #### [id number] #### MARCUSShawn WilcoxHemo [facility] [place] [address] zzplt morph on 2018 Platelet morphology finding ENLARGED Normal [facility] (d) System (00 000) Comment: Performed By: #### [id number] #### MARCUSShawn Kenyono [facility] [place] [address] Platelets (Bld) [#/Vol] DECREASED Normal 2018 [facility] (00 000) Comment: Performed By: #### [id number] #### MARCUS JeriHemo [address] [place] [address] 64301 valproic acid on 05-03-08 Valpro Acid Lvl 75 50-100 microgram/mL Normal 02-22-2019 [facility] (00 000) Comment: Performed By: #### [id number] #### MARCUS Jeri[address] [address] phosphorus on 02-22 Phosphate [Mass/Vol] 2.7 2.5-4.9 mg/dL Normal 9 [facility] (00 000) Comment: Performed By: #### [id number] #### MARCUS Kostaso [address] [place] [address] 93950 manual diff on 2018 Anisocytosis Ql (Bld) 1+ Normal 02-23-20 [facility] (44977) Comment: Order Comment: Order Added erma y Discern Expert. Performed By: #### [id number] #### MARCUSShawn Luong [address] [place] [address] 51509 Basophil Man 0 0-1 % Normal 02-22-2019 [facility] (97667) Comment: Order Comment: Order Added b y Discern Expert. Performed By: #### [id number] #### MARCUSShawn Kenyono [address] [place] [address] 01638 Eosinophils/100 WBC (Bld) 0 0-5 % Normal 05-0 [facility] (41285) Comment: Order Comment: Order Added b y Discern Expert. Performed By: #### [id number] #### MARCUS Kenyono [address] [place] [address] Lymphocytes/100 WBC (d) 51 14-48 % High 05- 8-2018 [facility] (13904) Comment: Order Comment: Order Added erma Aldana Expert. Performed By: #### [id number] #### MARCUS Kenyono [address] [place] [address] Monocyte Man 9 1-11 % Normal 02-22-2019 [facility] (26823) Comment: Order Comment: Order Added b dl Discern Expert. Performed By: #### [id number] #### MARCUS JeriRahul [facility] [place] [address] RBC morphology finding SEE MORPHOLOGY Normal [facility] Health Sys tem (54993) Comment: Order Comment: Order Added erma Aldana Expert. Performed By: #### [id number] #### MARCUS Kostaso [address] [place] [address] 01209 Segs Man 40 37-75 % Normal 02-22-2019 [facility] (49692) Comment: Order Comment: Order Added eram Aldana Expert. Performed By: #### [id number] #### MARCUS Kenyono [address] [place] [address] 10715 magnesium on 08 Magnesium [Mass/Vol] 1.8 1.6-2.4 mg/dL Normal 9 [facility] (00 000) Comment: Performed By: #### [id number] #### MARCUSShawn Kenyon[address] [address] hgba1c on 8 HbA1c ([facility]) [Mass fraction] 5.1 4.0-6.3 % Normal [facility] (00 000) Comment: Performed By: #### [id number] #### MARCUSShawn Kenyono [address] [place], [place] [address] gases - blood on 05-03-08 Allens Test. Normal 02-22-2019 [facility] (40596) Comment: Performed By: #### [id number] #### MARCUS JeriUnited Health Serviceso [address] [place], [place] [address] Base Excess. -9 -2-3 mmol/L Low 02-22-2019 [facility] (74182) Comment: Performed By: #### [id number] #### MARCUS RemHemo [facility] [place] [address] CO2 Tot. 17 22-28 mmol/L Low 02-22-2019 [facility] (13750) Comment: Performed By: #### [id number] #### MARCUS RemHemo [facility] [place] [address] CPAP/PEEP(cmH2O). NOT CALCULATED Normal 019 [facility] (00 000) Comment: Performed By: #### [id number] #### MARCUS RemHemo [facility] [place] [address] FiO2. 21 % Normal 02-22-2019 [facility] (12022) Comment: Performed By: #### [id number] #### MARCUS RemHemo [facility] [place] [address] HCO#. 16.3 22.0-26.0 mmol/L Low 02-22-2019 [facility] (00973) Comment: Performed By: #### [id number] #### MARCUS RemHemo [facility] [place] [address] O2 Devices. Room Air Normal 02-22-2019 [facility] (84105) Comment: Performed By: #### [id number] #### MARCUS RemHemo [facility] [place] [address] OPID. [id number] Normal 02-22-2019 [facility] (33696) Comment: Performed By: #### [id number] #### MARCUS RemHemo [facility] [place] [address] Oxygen (Bld) [Partial 101 80-100 mmHg High 02-23-20 [facility]] System (00 000) Comment: Performed By: #### [id number] #### MARCUS RemHemo [facility] [place] [address] Oxygen saturation in Blood 98 95-100 % Normal [facility] (00 000) Comment: Performed By: #### [id number] #### [place] [address] P CO2. 28.4 35.0-45.0 mmHg Low 02-22-2019 [facility] (95666) Comment: Performed By: #### [id number] #### [place] [address] Patient Temp. NOT CALCULATED Normal 02-22-2019 [facility] (20841) Comment: Performed By: #### [id number] #### [place] [address] pH (Bld) 7.367 7.350-7.450 Normal 02-22-2019 [facility] (31082) Comment: Performed By: #### [id number] #### [place] [address] PSV/IP(cmH2O). NOT CALCULATED Normal 02-22-2019 [facility] (21931) Comment: Performed By: #### [id number] #### [place] [address] Sample Site. R brach Normal 02-22-2019 [facility] (62106) Comment: Performed By: #### [id number] #### [place] [address] Sample Type. Arterial Normal 02-22-2019 [facility] (35075) Comment: Performed By: #### [id number] #### [place] [address] Set RR(b/min). NOT CALCULATED Normal 02-22-2019 [facility] (95462) Comment: Performed By: #### [id number] #### MARCUS JeriUnited Health Serviceso [address] [place] [address] Tidal Volume(mL). NOT CALCULATED Normal 019 [facility] (00 000) Comment: Performed By: #### [id number] #### MARCUS [facility] [address] [place] [address] Vent Mode. NOT CALCULATED Normal 02-22-2019 [facility] (28312) Comment: Performed By: #### [id number] #### MARCUS Kenyono [address] [place] [address] egfr on 2019-02-22 GFR/1.73 sq M predicted 56 mL/min/1.73 m2 Normal 0 02-22-2019 [facility] among non-blacks [facility] (86360) (S/P/Bld) [Vol rate/Area] Comment: Order Comment: Order added erma Aldana Expert. Performed By: #### [id number] # ### MARCUS JeriHemo [facility] [place] [address] GFR/1.73 sq M predicted 46 mL/min/1.73 m2 Normal 0 02-22-2019 [facility] among non-blacks [facility] (99486) (S/P/Bld) [Vol rate/Area] Comment: Order Comment: Order added erma Aldana Expert. Performed By: #### [id number] # ### MARCUS JeriHemo [address] [place] [address] cbc w/ auto diff on 2019-02-22 Erythrocyte distribution 15.0 11.5-14.5 % High 02-22 [facility] width (RBC) [Ratio] Health System (67748) Comment: Performed By: #### [id number] #### MARCUS JeriHemo [facility] [place] [address] Hematocrit (Bld) [Volume 35.9 36.0-48.0 % Low 02-22 [facility] Health fraction] System (00 000) Comment: Performed By: #### [id number] #### MARCUS JeriHemo [facility] [place] [address] Hemoglobin (Bld) 11.8 12.0-16.0 G/DL Low 02-22-2019 [facility] [Mass/Vol] Health Sy stem (93881) Comment: Performed By: #### [id number] #### MARCUSShawn WilcoxHemo [facility] [place] [address] MCH (RBC) [Entitic mass] 31.1 27.0-31.0 pg High 02-22 [facility] System (00 000) Comment: Performed By: #### [id number] #### MARCUS [facility] [place] [address] MCHC (RBC) [Mass/Vol] 32.9 33.0-37.0 G/DL Low 02-23-20 [facility] (00 000) Comment: Performed By: #### [id number] #### MARCUS WilcoxHemo [facility] [place] [address] MCV (RBC) [Entitic vol] 94.6 78.0-100.0 fL Normal 02-22 [facility] Sys tem (33919) Comment: Performed By: #### [id number] #### MARCUS WilcoxHemo [facility] [place] [address] Platelet mean volume 7.9 7.4-11.0 fL Normal 9 [facility] (Bld) [Entitic vol] System (81966) Comment: Performed By: #### [id number] #### MARCUS WilcoxHemo [facility] [place] [address] Platelets (Bld) [#/Vol] 62 130-400 E3/mcL Low 2018 [facility] (00 000) Comment: Performed By: #### [id number] #### MARCUS WilcoxHemo [facility] [place] [address] RBC (Bld) [#/Vol] 3.79 3.90-5.40 E6/mcL Low 02-22-2019 [facility] (00 000) Comment: Performed By: #### [id number] #### MARCUS WilcoxHemo [facility] [place] [address] WBC (Bld) [#/Vol] 2.8 3.6-11.0 E3/mcL Low 02-22-2019 [facility] (36640) Comment: Performed By: #### [id number] #### MARCUS JeriHemo [address] [place] [address] bmp on 2019-02-22 Anion gap [Moles/Vol] 10 10-20 mEq/L Normal 02-23-20 [facility] (00 000) Comment: Performed By: #### [id number] # ### MARCUS WilcoxHemo [address] [place] [address] Calcium [Mass/Vol] 7.7 8.6-10.3 mg/dL Low 02-22-2019 [facility] (91128) Comment: Performed By: #### [id number] # ### MARCUS WilcoxHemo [address] [place] [address] Chloride [Moles/Vol] 115 98-107 mEq/L High 9 [facility] (00 000) Comment: Performed By: #### [id number] # ### MARCUS WilcoxHemo [address] [place] [address] CO2 [Moles/Vol] 20.0 21.0-32.0 mEq/L Low 02-22-2019 [facility] (20398) Comment: Performed By: #### [id number] # ### MARCUS WilcoxHemo [address] [place] [address] Creatinine [Mass/Vol] 1.2 0.5-1.1 mg/dL High 02-23-20 19 [facility] (00 000) Comment: Performed By: #### [id number] # ### MARCUS JeriHemo [address] [place] [address] Glucose [Mass/Vol] 89 70-99 mg/dL Normal 02-22-2019 [facility] (26739) Comment: Performed By: #### [id number] # ### MARCUS WilcoxHemo [facility] [place] [address] Potassium [Moles/Vol] 4.3 3.5-5.3 mEq/L Normal 02-23-20 19 [facility] (00 000) Comment: Performed By: #### [id number] # ### MARCUS RemHemo [facility] [place] [address] Sodium [Moles/Vol] 141 136-145 mEq/L Normal 02-22-2019 [facility] (00 000) Comment: Performed By: #### [id number] # ### MARCUS RemHemo [address] [place] [address] Urea nitrogen [Mass/Vol] 14 6-23 mg/dL Normal 02-22 [facility] (00 000) Comment: Performed By: #### [id number] # ### MARCUS RemHemo [address] [place] [address] Urea nitrogen/Creatinine 11.7 5.4-30.0 ratio Normal 02-22 [facility] [Mass ratio] [facility] (99640) Comment: Performed By: #### [id number] # ### MARCUS Kenyono [address] [place] [address] .manual abs on 2018 Basophil Abs Man 0.0 0.0-0.2 10x3/ Normal 02-22-2019 [facility] (93338) Comment: Order Comment: Order Added b y Discern Expert. Performed By: #### [id number] #### MARCUSShawn WilcoxKarlo [address] [place] [address] Eos Abs Man 0.0 0.0-0.5 10x3/ Normal 02-22-2019 [facility] (04143) Comment: Order Comment: Order Added b y Discern Expert. Performed By: #### [id number] #### MARCUSShawn WilcoxKarlcorky [address] [place] [address] Lymph Abs Man 1.4 1.2-3.4 10x3/ Normal 02-22-2019 [facility] (25706) Comment: Order Comment: Order Added b y Discern Expert. Performed By: #### [id number] #### MARCUSShawn WilcoxHemo [address] [place] [address] [place] Abs Man 0.3 0.0-0.7 10x3/ Normal 02-22-2019 [facility] (18674) Comment: Order Comment: Order Added b y Discern Expert. Performed By: #### [id number] #### MARCUS Kostaso [address] [place] [address] Segs Abs Man 1.1 1.4-6.5 10x3/ Low 02-22-2019 [facility] (16007) Comment: Order Comment: Order Added b y Discern Expert. Performed By: #### [id number] #### [place] [address] zzplt morph on 2018 Platelet morphology finding ENLARGED Normal [facility] (d) System (00 000) Comment: Performed By: #### [id number] #### MARCUS Urinalysis Automated Suggs bsection [address] [place] [address] Platelets (Bld) [#/Vol] DECREASED Normal 2018 [facility] (00 000) Comment: Performed By: #### [id number] #### MARCUS Urinalysis Automated [facility] bsection [address] [place] [address] valproic acid on 05-03-07 Valpro Acid Lvl 102 50-100 microgram/mL Critically 02-21-2019 Hinduism abnormal [facility] H ealt System (00 000) Comment: Result Comment: Critical Res ult (s) Called to and read back by: XUAN GARCIA at: 02/21/2019 18:51 :29 by:ZOFIA Performed By: #### [id number] # ### MARCUS RemHemo [address] [place] [address] Valpro Acid Lvl 101 50-100 microgram/mL Critically 02-21-2019 [facility] H ealt System (00 000) Comment: Result Comment: Critical Res ult (s) Called to and read back by: XUAN GARCIA at: 02/21/2019 13:43 :39 by:RAY Performed By: #### [id number] # ### MARCUS Microbiology Subsection [facility] [place] [id number] ua complete on 2018 Color (U) Straw Yellow Normal 02-21-2019 [facility] (00213) Comment: Order Comment: Straight Cath as needed Performed By: #### [id number] # ### MARCUS Microbiology Subsection [address] [place] [address] Glucose (U) [Mass/Vol] Negative Negative mg/dL Normal 019 [facility] Sys tem (03793) Comment: Order Comment: Straight Cath as needed Performed By: #### [id number] # ### MARCUS Microbiology Subsection [address] [place] [address] Ketones Ql (U) Negative Negative Normal 02-21-2019 [facility] (30441) Comment: Order Comment: Straight Cath as needed Performed By: #### [id number] # ### MARCUS Microbiology Subsection [address] [place] [address] RBC (U) [#/Vol] 0-3 0-3 Normal 02-21-2019 [facility] (30213) Comment: Order Comment: Straight Cath as needed Performed By: #### [id number] # ### MARCUS Microbiology Subsection [address] [place] [address] UA Blood Negative Negative Normal 02-21-2019 [facility] (73402) Comment: Order Comment: Straight Cath as needed Performed By: #### [id number] # ### MARCUS Microbiology Subsection [address] [place] [address] UA Bacteria Trace None Abnormal 02-21-2019 [facility] (20764) Comment: Order Comment: Straight Cath as needed Performed By: #### [id number] # ### MARCUS Microbiology Subsection [address] [place] [address] UA Clarity SltCloudy Clear Abnormal 02-21-2019 [facility] (52750) Comment: Order Comment: Straight Cath as needed Performed By: #### [id number] # ### MARCUS Microbiology Subsection [address] [place] [address] 25631 UA Leuk Est 1+ Negative Abnormal 02-21-2019 [facility] (58812) Comment: Order Comment: Straight Cath as needed Performed By: #### [id number] # ### MARCUS Microbiology Subsection [address] [place] [address] UA Mucous Trace Trace Abnormal 02-21-2019 [facility] (47393) Comment: Order Comment: Straight Cath as needed Performed By: #### [id number] # ### MARCUS Microbiology Subsection [address] [place] [address] UA Nitrite Negative Negative Normal 02-21-2019 [facility] (68460) Comment: Order Comment: Straight Cath as needed Performed By: #### [id number] # ### MARCUS Microbiology Subsection [address] [place] [address]287 UA pH 5.0 4.6-8.0 Normal 02-21-2019 [facility] (60450) Comment: Order Comment: Straight Cath as needed Performed By: #### [id number] # ### MARCUS Microbiology Subsection [address] [place] [address] 288[address] UA Protein Negative Negative Normal 02-21-2019 [facility] (14072) Comment: Order Comment: Straight Cath as needed Performed By: #### [id number] # ### MARCUS Microbiology Subsection [facility] [place] [address] UA Spec Grav 1.005 1.003-1.030 Normal 02-21-2019 [facility] (80873) Comment: Order Comment: Straight Cath as needed Performed By: #### [id number] # ### MARCUS Microbiology Subsection [facility] [place] [address] UA Squam Epithelial 5-10 0-5 Abnormal 02-21-2019 [facility] (24288) Comment: Order Comment: Straight Cath as needed Performed By: #### [id number] # ### MARCUS Microbiology Subsection [address] [place] [address] 480[address] UA Urobilinogen Negative Normal 02-21-2019 [facility] (71548) Comment: Order Comment: Straight Cath as needed [...] laboratory within 24 hours. Performed By: #### [id number] # ### MARCUS Microbiology Subsection [address] [place] [address] 35471 UA WBC 0-5 0-5 Normal 02-21-2019 [facility] (15486) Comment: Order Comment: Straight Cath as needed Performed By: #### [id number] # ### MARCUS Microbiology Subsection [address] [place] [address] Urobilinogen Qn (U) Negative Negative Normal 02-21-2019 [facility] (00 000) Comment: Order Comment: Straight Cath as needed Performed By: #### [id number] # ### MARCUS Microbiology Subsection [address] [place] [address]78[address] u sodium on 2019-02 Sodium [Moles/Vol] 36 mmol/L Normal 02-21-2019 [facility] (24678) Comment: Performed By: #### [id number] # ### MARCUS Microbiology Subsection [address] [place] [address] 108[address] u protein on 02-21 Protein [Mass/Vol] 4 1-14 mg/dL Normal 02-21-2019 [facility] (52548) Comment: Performed By: #### [id number] # ### MARCUS RemHemo [address] [place] [address] u creatinine on 201 06-22-07 U Creatinine 31 20-300 mg/dL Normal 02-21-2019 [facility] (61505) Comment: Performed By: #### [id number] # ### MARCUS RemHemo [address] [place] [address] u bhcg qlt on 02-21 HCG.beta subunit Qn Neg Neg m[IU]/mL Normal 02-21-2019 [facility] (00 000) Comment: Performed By: #### [id number] # ### MARCUS Microbiology Subsection [address] [place] [address] tsh on 2019-02-21 TSH Qn 4.82 0.30-5.60 mcIU/mL Normal 02-21-2019 [facility] (74684) Comment: Order Comment: With T4fr Ref kurt Performed By: #### [id number] # ### MARCUS Microbiology Subsection [address] [place] [address]005 salicylate on 02-21 Salicylate Lvl <1.5 4.0-20.0 Low 02-21-2019 [facility] (42255) Comment: Performed By: #### [id number] # ### MARCUS RemHemo [address] [place] [address] morph on 2019-02-21 Polychromasia 1+ Normal 02-21-2019 [facility] (13690) Comment: Order Comment: Straight Cath as needed Performed By: #### [id number] #### MARCUS Urinalysis Automated [facility] bsection [address] [place] [address] RBC morphology finding SEE MORPHOLOGY Normal [facility] (d) Health Sys tem (62648) Comment: Order Comment: Straight Cath as needed Performed By: #### [id number] #### MARCUS Urinalysis Automated [facility]gs bsection [address] [place] [address] Teardrop Cell 1+ Normal 02-21-2019 [facility] (42451) Comment: Order Comment: Straight Cath as needed Performed By: #### [id number] #### MARCUS Urinalysis Automated [facility] bsection [address] [place] [address] magnesium on 02-21 Magnesium [Mass/Vol] 1.7 1.6-2.4 Int._Unit/L Normal [facility] Sys tem (24303) Comment: Performed By: #### [id number] # ### MARCUS Microbiology Subsection [address] [place] [address] lipase level on 06-22-07 Lipase Lvl 37 9-82 Int._Unit/L Normal 02-21-2019 [facility] (33793) Comment: Performed By: #### [id number] #### MARCUS Urinalysis Automated Suggs bsection [address] [place], [place] [address] lactic acid on 2018 Lactate [Moles/Vol] 1.4 0.4-2.0 mmol/L Normal 02-21-2019 [facility] (00 000) Comment: Order Comment: Sepsis Reflex order due to high lactic acid level Performed By: #### [id number] # ### MARCUS RemHemo [address] [place] [address] Lactate [Moles/Vol] 2.2 0.4-2.0 mmol/L High 02-21-2019 [facility] (00 000) Comment: Performed By: #### [id number] # ### MARCUS RemHemo [facility] [place] [address] hep func panel on Albumin [Mass/Vol] 4.0 3.4-5.0 gm/dL Normal 02-21-2019 [facility] (00 000) Comment: Performed By: #### [id number] #### MARCUS Urinalysis Automated [facility] bsection [address] [place] [address] Albumin/Globulin [Mass 1.5 1.1-1.9 ratio Normal [facility] Sy tem (95106) Comment: Performed By: #### [id number] #### MARCUS Urinalysis Automated [facility] bsection [address] [place] [address] Alk Phos 69 33-110 Int._Unit/L Normal 02-21-2019 [facility] (57353) Comment: Performed By: #### [id number] #### MARCUS Urinalysis Automated [facility] bsection [address] [place] [address] ALT [Catalytic 18 7-45 Int._Unit/L Normal 02-21-2019 [facility] (40166[facility] Comment: Performed By: #### [id number] #### MARCUS Urinalysis Automated [facility] bsection [address] [place] [address] AST [Catalytic 33 9-39 Int._Unit/L Normal 02-21-2019 [facility] (54139) Comment: Performed By: #### [id number] #### MARCUS Urinalysis Automated [facility] bsection [address] [place] [address] Bili Direct 0.10 0.00-0.30 mg/dL Normal 02-21-2019 [facility] (95802) Comment: Performed By: #### [id number] #### MARCUS Urinalysis Automated [facility] bsection [address] [place] [address] Bili Indirect 0.33 mg/dL Normal 02-21-2019 [facility] (22800) Comment: Result Comment: No establish ed ranges available for the indirect bilirubin Performed By: #### [id number] #### MARCUS Urinalysis Automated [facility] bsection [address] [place] [address] Bili Total 0.43 0.00-1.20 mg/dL Normal 02-21-2019 [facility] (03237) Comment: Performed By: #### [id number] #### MARCUS Urinalysis Automated [facility] bsection [address] [place] [address] Globulin (S) [Mass/Vol] 3.0 2.0-4.0 G/DL Normal 2018 [facility] (00 000) Comment: Performed By: #### [id number] #### MARCUS Urinalysis Automated [facility] bsection [address] [place] [address] Protein [Mass/Vol] 6.6 6.4-8.2 gm/dL Normal 02-21-2019 [facility] (00 000) Comment: Performed By: #### [id number] #### MARCUS Urinalysis Automated Sug[facility] bsection [address] [place], [place] [address] gases - blood on 05-03-07 Allens Test. Positive Normal 02-21-2019 [facility] (92425) Comment: Performed By: #### [id number] # ### MARCUS RemHemo [address] [place] [address] Base Excess. -9 -2-3 mmol/L Low 02-21-2019 [facility] (35031) Comment: Performed By: #### [id number] # ### MARCUS RemHemo [facility] [place] [address] CO2 Tot. 18 22-28 mmol/L Low 02-21-2019 [facility] (45385) Comment: Performed By: #### [id number] # ### MARCUS RemHemo [address] [place] [address] CPAP/PEEP(cmH2O). 0 Normal 02-21-2019 [facility] (39132) Comment: Performed By: #### [id number] # ### MARCUS RemHemo [facility] [place] [address] FiO2. 21 % Normal 02-21-2019 [facility] (60335) Comment: Performed By: #### [id number] # ### MARCUS RemHemo [facility] [place] [address] HCO#. 17.2 22.0-26.0 mmol/L Low 02-21-2019 [facility] (77449) Comment: Performed By: #### [id number] # ### MARCUS RemHemo [facility] [place] [address] O2 Devices. Room Air Normal 02-21-2019 [facility] (95454) Comment: Performed By: #### [id number] # ### MARCUS RemHemo [address] [place] [id number] OPID. [id number] Normal 02-21-2019 [facility] (17690) Comment: Performed By: #### [id number] # ### MARCUS RemHemo [address] [place] [address] Oxygen (Bld) [Partial 85 80-100 mmHg Normal 02-22-20 19 [facility]] System (00 000) Comment: Performed By: #### [id number] # ### MARCUS Kostaso [facility] [place] [address] Oxygen saturation in Blood 96 95-100 % Normal [facility] (00 000) Comment: Performed By: #### [id number] # ### MARCUSShawn WilcoxKarlo [facility] [place] [address]77005 P CO2. 32.7 35.0-45.0 mmHg Low 02-21-2019 [facility] (84831) Comment: Performed By: #### [id number] # ### MARCUS Kostaso [facility] [place] 4577005 Patient Temp. NOT CALCULATED Normal 02-21-2019 [facility] (38633) Comment: Performed By: #### [id number] # ### MARCUS Kostaso [address] [place] [address] pH (Bld) 7.329 7.350-7.450 Low 02-21-2019 [facility] (19914) Comment: Performed By: #### [id number] # ### MARCUS Kostaso [address] [place] [address] PSV/IP(cmH2O). 0 Normal 02-21-2019 [facility] (77126) Comment: Performed By: #### [id number] # ### MARCUS Kostaso [address] [place] [address] Sample Site. R rad Normal 02-21-2019 [facility] (87538) Comment: Performed By: #### [id number] # ### MARCUSShawn WilcoxHemo [facility] [place] [address] Sample Type. Arterial Normal 02-21-2019 [facility] (91960) Comment: Performed By: #### [id number] # ### MARCUSShawn WilcoxKarlo [facility] [place] [address]005 Set RR(b/min). 0 Normal 02-21-2019 [facility] (55672) Comment: Performed By: #### [id number] # ### MARCUSShawn WilcoxHemo [address] [place] [address] Tidal Volume(mL). 0 Normal 02-21-2019 [facility] (63399) Comment: Performed By: #### [id number] # ### MARCUSShawn WilcoxHemo [address] [place] [address] Vent Mode. NOT CALCULATED Normal 02-21-2019 [facility] (38428) Comment: Performed By: #### [id number] # ### MARCUSShawn WilcoxHemo [facility] [place] [address] Allens Test. Neg Normal 02-21-2019 [facility] (86175) Comment: Performed By: #### [id number] # ### MARCUSShawn WilcoxHemo [facility] [place] [address] Base Excess. -8 -2-3 mmol/L Low 02-21-2019 [facility] (15866) Comment: Performed By: #### [id number] # ### MARCUSShawn WilcoxHemo [address] [place] [address] CO2 Tot. 19 22-28 mmol/L Low 02-21-2019 [facility] (81396) Comment: Performed By: #### [id number] # ### MARCUSShawn WilcoxHemo [facility] [place] [address] CPAP/PEEP(cmH2O). NOT CALCULATED Normal 019 [facility] (00 000) Comment: Performed By: #### [id number] # ### MARCUSShawn WilcoxHemo [facility] [place] [address] FiO2. 21 % Normal 02-21-2019 [facility] (75714) Comment: Performed By: #### [id number] # ### MARCUS RemHemo [facility] [place] [address] HCO#. 17.9 22.0-26.0 mmol/L Low 02-21-2019 [facility] (26987) Comment: Performed By: #### [id number] # ### MARCUSShawn WilcoxHemo [facility] [place] [address] O2 Devices. Room Air Normal 02-21-2019 [facility] (20498) Comment: Performed By: #### [id number] # ### MARCUS WilcoxHemo [address] [place] [address] OPID. [id number] Normal 02-21-2019 [facility] (37111) Comment: Performed By: #### [id number] # ### MARCUS WilcoxHemo [facility] [place] [address] Oxygen (Bld) [Partial 86 80-100 mmHg Normal 02-22-20 19 [facility]] System (00 000) Comment: Performed By: #### [id number] # ### MARCUS WilcoxHemo [facility] [place] [address] Oxygen saturation in Blood 96 95-100 % Normal [facility] (00 000) Comment: Performed By: #### [id number] # ### MARCUS WilcoxHemo [address] [place], [place] [address] P CO2. 34.1 35.0-45.0 mmHg Low 02-21-2019 [facility] (97812) Comment: Performed By: #### [id number] # ### MARCUS JeriHemo [address] [place] [address] Patient Temp. NOT CALCULATED Normal 02-21-2019 [facility] (93016) Comment: Performed By: #### [id number] # ### MARCUS Kenyono [facility] [place] [address] pH (Bld) 7.329 7.350-7.450 Low 02-21-2019 [facility] (95224) Comment: Performed By: #### [id number] # ### MARCUS Kostaso [address] [place], [place] [address] PSV/IP(cmH2O). NOT CALCULATED Normal 02-21-2019 [facility] (48781) Comment: Performed By: #### [id number] # ### MARCUS JeriHemo [facility] [place] [address] Sample Site. R rad Normal 02-21-2019 [facility] (71411) Comment: Performed By: #### [id number] # ### MARCUS JeriHemo [facility] [place] [address] Sample Type. Arterial Normal 02-21-2019 [facility] (99860) Comment: Performed By: #### [id number] # ### MARCUS RemHemo [address] [place] [address] Set RR(b/min). NOT CALCULATED Normal 02-21-2019 [facility] (33414) Comment: Performed By: #### [id number] # ### MARCUS RemHemo [address] [place] [address] Tidal Volume(mL). NOT CALCULATED Normal 019 [facility] (00 000) Comment: Performed By: #### [id number] # ### MARCUS RemHemo [address] [place] 4577005 Vent Mode. NOT CALCULATED Normal 02-21-2019 [facility] (52294) Comment: Performed By: #### [id number] # ### MARCUS RemHemo [address] [place] [address] ethanol on Ethanol [Mass/Vol] <10 <=10 mg/dL Normal 02-21-2019 [facility] (21818) Comment: Performed By: #### [id number] # ### MARCUS Microbiology Subsection [address] [place] [address] egfr on 2019-02-21 GFR/1.73 sq M predicted 49 mL/min/1.73 m2 Normal 0 02-21-2019 [facility] among non-blacks [facility] (86464) (S/P/Bld) [Vol rate/Area] Comment: Order Comment: Straight Cath as needed Performed By: #### [id number] #### MARCUS Urinalysis Automated Suggs bsection [address] [place] [address] GFR/1.73 sq M predicted 40 mL/min/1.73 m2 Normal 0 02-21-2019 [facility] among non-blacks [facility] (67230) (S/P/Bld) [Vol rate/Area] Comment: Order Comment: Straight Cath as needed Performed By: #### [id number] #### MARCUS Urinalysis Automated Suggs bsection [address] [place] [address] ck on 2019-02-21 Total CK 46 <=215 Int._Unit/L Normal 02-21-2019 [facility] (02122) Comment: Performed By: #### [id number] #### MARCUS Urinalysis Automated [facility]gs bsection [address] [place] [address] cbc w/ auto diff on 2019-02-21 Erythrocyte distribution 14.7 11.5-14.5 % High 02-21 [facility] width (RBC) [Ratio] Health System (51740) Comment: Performed By: #### [id number] #### MARCUS Urinalysis Automated [facility]gs bsection [address] [place] [address] Hematocrit (Bld) [Volume 41.4 36.0-48.0 % Normal 02-21 [facility] Sys tem (26151) Comment: Performed By: #### [id number] #### MARCUS Urinalysis Automated Suggs bsection [address] [place] [address] Hemoglobin (Bld) 13.3 12.0-16.0 G/DL Normal 02-21-2019 [facility] [Mass/Vol] Health Sy stem (55821) Comment: Performed By: #### [id number] #### MARCUS Urinalysis [facility] [address] [place] [address] MCH (RBC) [Entitic mass] 30.7 27.0-31.0 pg Normal 02-21 [facility] (00 000) Comment: Performed By: #### [id number] #### MARCUS Urinalysis [facility] [address] [place] [address] MCHC (RBC) [Mass/Vol] 32.2 33.0-37.0 G/DL Low 02-22-20 19 [facility] (00 000) Comment: Performed By: #### [id number] #### MARCUS Urinalysis [facility] [address] [place] [address] MCV (RBC) [Entitic vol] 95.5 78.0-100.0 fL Normal 02-21 [facility] Sys tem (76600) Comment: Performed By: #### [id number] #### MARCUS Urinalysis [facility] [address] [place] [address] Platelet mean volume 7.9 7.4-11.0 fL Normal 9 [facility] (d) [Entitic vol] System (14722) Comment: Performed By: #### [id number] #### MARCUS Urinalysis [facility] [address] [place] [address] Platelets (Bld) [#/Vol] 66 130-400 E3/mcL Low 2018 [facility] ( 000) Comment: Performed By: #### [id number] #### MARCUS Urinalysis [facility] [address] [place] [address] RBC (Bld) [#/Vol] 4.34 3.90-5.40 E6/mcL Normal 02-21-2019 [facility] () Comment: Performed By: #### [id number] #### MARCUS Urinalysis [facility] [address] [place] [address] WBC (Bld) [#/Vol] 4.2 3.6-11.0 E3/mcL Normal 02-21-2019 [facility] () Comment: Performed By: #### [id number] #### MARCUS Urinalysis [facility] [address] [place] [address] bmp on 2019-02-21 Anion gap [Moles/Vol] 18 10-20 mEq/L Normal 02-22-20 19 [facility] () Comment: Performed By: #### [id number] #### MARCUS Urinalysis [facility] [address] [place] [address] Calcium [Mass/Vol] 8.6 8.6-10.3 mg/dL Normal 02-21-2019 [facility] () Comment: Performed By: #### [id number] #### MARCUS Urinalysis [facility] [address] [place] [address] Chloride [Moles/Vol] 106 98-107 mEq/L Normal 9 [facility] () Comment: Performed By: #### [id number] #### MARCUS Urinalysis [facility] [address] [place] [address] CO2 [Moles/Vol] 16.0 21.0-32.0 mEq/L Low 02-21-2019 [facility] (04827) Comment: Performed By: #### [id number] #### MARCUS Urinalysis Automated [facility] [address] [place] [address] Creatinine [Mass/Vol] 1.4 0.5-1.1 mg/dL High 02-22-20 [facility] (00 000) Comment: Performed By: #### [id number] #### MARCUS Urinalysis [facility] [address] [place] [address] Glucose [Mass/Vol] 165 70-99 mg/dL High 02-21-2019 [facility] (42194) Comment: Performed By: #### [id number] #### MARCUS Urinalysis [facility] [address] [place] [address] Potassium [Moles/Vol] 2.9 3.5-5.3 mEq/L Low 02-22-20 [facility] (00 000) Comment: Performed By: #### [id number] #### MARCUS Urinalysis [facility] [address] [place] [address] Sodium [Moles/Vol] 137 136-145 mEq/L Normal 02-21-2019 [facility] (00 000) Comment: Performed By: #### [id number] #### MARCUS Urinalysis [facility] [address] [place] [address] Urea nitrogen [Mass/Vol] 14 6-23 mg/dL Normal 02-21 [facility] (00 000) Comment: Performed By: #### [id number] #### MARCUS Urinalysis [facility]section [address] [place] [address] Urea nitrogen/Creatinine 10.0 5.4-30.0 ratio Normal 02-21 [facility] [Mass ratio] [facility] (35078) Comment: Performed By: #### [id number] #### MARCUS Urinalysis Automated [facility] bsection [address] [place] [address] auto diff on 02-21 Basophils (Bld) [#/Vol] 0.0 0.0-0.2 E3/mcL Normal 2018 [facility] tem (00287) Comment: Order Comment: Order Added b y Discern Expert. Performed By: #### [id number] # ### MARCUS Microbiology Subsection [address] [place] [address] Basophils/100 WBC (Bld) 0.4 0.0-2.0 % Normal 2018 [facility] (00 000) Comment: Order Comment: Order Added b y Discern Expert. Performed By: #### [id number] # ### MARCUS Microbiology Subsection [address] [place] [address] Eos Absolute 0.1 0.0-0.7 E3/mcL Normal 02-21-2019 [facility] (56043) Comment: Order Comment: Order Added b y Discern Expert. Performed By: #### [id number] # ### MARCUS Microbiology Subsection [address] [place] [address] Eosinophils/100 WBC (Bld) 1.4 0.0-11.0 % Normal [facility] (00 000) Comment: Order Comment: Order Added b y Discern Expert. Performed By: #### [id number] # ### MARCUS Micro[facility] [address] [place] [address] Lymphocytes (Bld) [#/Vol] 1.0 1.2-3.4 E3/mcL Low [facility] (00 000) Comment: Order Comment: Order Added b y Discern Expert. Performed By: #### [id number] # ### MARCUS Micro[facility] Sub[facility] [address] [place] [address] Lymphocytes/100 WBC (Bld) 24.1 20.0-55.0 % Normal [facility] tem (31041) Comment: Order Comment: Order Added b y Discern Expert. Performed By: #### [id number] # ### MARCUS Microbiology Subsection [address] [place] [address] [place] Absolute 0.5 0.0-0.7 E3/mcL Normal 02-21-2019 [facility] (35371) Comment: Order Comment: Order Added b y Discern Expert. Performed By: #### [id number] # ### MARCUS Microbiology Subsection [address] [place] [address] Monocytes/100 WBC (Bld) 10.8 0.0-10.0 % High 2018 [facility] (00 000) Comment: Order Comment: Order Added b y Discern Expert. Performed By: #### [id number] # ### MARCUS Micro[facility] [address] [place] [address] Neutro Absolute 2.7 1.4-6.5 E3/mcL Normal 02-21-2019 [facility] (58577) Comment: Order Comment: Order Added b y Discern Expert. Performed By: #### [id number] # ### MARCUS Microbiology Subsection [address] [place] [address] Neutro Auto 63.3 37.0-75.0 % Normal 02-21-2019 [facility] (74515) Comment: Order Comment: Order Added erma Aldana Expert. Performed By: #### [id number] # ### MARCUS Microbiology Subsection [address] [place] [address] ammonia on Ammonia (P) [Mass/Vol] 55 16-53 mcmol/L High 02-21- [facility] (00 000) Comment: Performed By: #### [id number] # ### MARCUS Micro[facility] [address] [place] [address] acetamnphn lvl on Acetaminoph Lvl <10 10-30 Normal 02-21-2019 [facility] (47130) Comment: Performed By: #### [id number] # ### MARCUS Microbiology Subsection [address] [place] [address] nm myocardial perfusion single - stress only on 2018-12-26 [place] Nuclear Report Normal 12-26-2018 [facility] Patient: PABLO OSMAN ([id number]) SINGLE - Med Rec#: [id number] (Age): 1975(43y) STRESS ONLY Height: Study Date: [...] imaging protocol was followed using Tc-99m tetrofosmin (Spiralcatview) injected intravenously. For the stress portion of [...] on 2018-12-26 Nuclear Report 12-26-2018 [facility] (25016) Patient: PABLO OSMAN [facility] Rec#: [id number] (Age): 1975(43y ) Height: Study Date: 019 [...] RVPI Interface, Rad In [facility]lab X per [employer] - 12/26/2018 3:48 PM EDT Nuclear Report 12-26-2018 [facility] (89596) Patient: PABLO OSMAN [facility] Rec#: [id number] (Age): 1975(43y) Height: Study Date: 12/26/2018 Weight: [...] Chest 2 Views Exam Date/Time: Normal 019 [facility] 12/21/2018 04:05 EST [facility] Reason for Exam: (00 000) Cough Report STUDY: XR Chest 2 Views; 12/21/2018 4:05 am INDICATION: Cough. COMPARISON: 10/02/2018 ACCESSION NUMBER(S): [id number] ORDERING CLINICIAN: Bob Wick FINDINGS: No significant [...] Influenzae A Ag Negative Negative Normal 12-21-2018 [facility] (00 000) Comment: Result Comment: Test Perform ed by PCR Testing Performed By: #### [id number] #### MARCUS Urinalysis [facility] [address] [place] [address] Influenzae B Ag Negative Negative Normal 12-21-2018 [facility] (00 000) Comment: Result Comment: Test Perform ed by PCR Testing Performed By: #### [id number] #### MARCUS Urinalysis Autom[facility] [address] [place] [address] ua complete on 2018 Color (U) Minerva Yellow Abnormal 12-12-2018 [facility] (87977) Comment: Performed By: #### [id number] # ### MARCUS [facility] [address] [place] [address] Glucose (U) [Mass/Vol] Negative Negative mg/dL Normal [address] [place] [address] Sys tem (70134) Comment: Performed By: #### [id number] # ### MARCUS [facility] [address] [place] [address] Ketones Ql (U) Trace Normal 12-12-2018 [facility] (93867) Comment: Performed By: #### [id number] # ### MARCUS [facility] [address] [place] [address] RBC (U) [#/Vol] 3-5 0-3 Abnormal 12-12-2018 [facility] (36359) Comment: Performed By: #### [id number] # ### MARCUS [facility] [address] [place] [address] UA Blood 2+ Negative Abnormal 12-12-2018 [facility] (82193) Comment: Performed By: #### [id number] # ### MARCUS [facility] [address] [place] [address] UA Clarity Cloudy Clear Abnormal 12-12-2018 [facility] (49438) Comment: Performed By: #### [id number] # ### MARCUS [employer] [address] [place] [address] UA Hyal Cast 5-10 0-2 Abnormal 12-12-2018 [facility] (88602) Comment: Performed By: #### [id number] # ### MARCUS [facility] [address] [place] [address] UA Leuk Est 3+ Negative Abnormal 12-12-2018 [facility] (81853) Comment: Performed By: #### [id number] # ### MARCUS [facility] [address] [place] [address] UA Nitrite Negative Negative Normal 12-12-2018 [facility] (99992) Comment: Performed By: #### [id number] # ### MARCUS [facility] [address] [place] [address] UA pH 5.0 4.6-8.0 Normal 12-12-2018 [facility] (35046) Comment: Performed By: #### [id number] # ### MARCUS [facility] [address] [place] [address] UA Protein Negative Negative Normal 12-12-2018 [facility] (87683) Comment: Performed By: #### [id number] # ### MARCUS [facility] [address] [place] [address] UA Spec Grav 1.020 1.003-1.030 Normal 12-12-2018 [facility] (42554) Comment: Performed By: #### [id number] # ### MARCUS [facility] [address] [place] [address] UA Squam Epithelial 20-30 0-5 Abnormal 12-12-2018 [facility] (72710) Comment: Performed By: #### [id number] # ### MARCUS [facility] [address] [place] [address] UA Urobilinogen 2.0 mg/dL Abnormal 12-12-2018 [facility] (17835) Comment: Result Comment: Due to a man ufacturing issue, low positive urobilinogen results may be fasely positi ve. Correlate with urine bilirubin and additional clinical/laborato ry findings to assess the risk of hemolytic anemia or liver disease. If clinically indicated, repeat testing with an alternate method is availabl e by contacting the laboratory within 24 hours. Performed By: #### [id number] # ### MARCUS [facility] [address] [place] [address] UA WBC 10-20 0-5 Abnormal 12-12-2018 [facility] (44365) Comment: Performed By: #### [id number] # ### MARCUS [facility] [address] [place] [address] Urobilinogen Qn (U) Negative Negative Normal 12-12-2018 [facility] (00 000) Comment: Performed By: #### [id number] # ### MARCUS [facility] [address] [place] [address] u drug screen on 06-12-24 U Amph Scr Negative Negative Normal 12-12-2018 [facility] (57217) Comment: Performed By: #### [id number] # ### MARCUS [facility] [address] [place] [address] U Kalyani Scr Negative Negative Normal 12-12-2018 [facility] (05181) Comment: Performed By: #### [id number] # ### MARCUS [facility] [address] [place] [address] U Benzodia Scr Negative Negative Normal 12-12-2018 [facility] (25383) Comment: Performed By: #### [id number] # ### MARCUS [facility] [address] [place] [address] U Cannab Scr Negative Negative Normal 12-12-2018 [facility] (99927) Comment: Performed By: #### [id number] # ### MARCUS [facility] [address] [place] [address] U Cocaine Scr Negative Negative Normal 12-12-2018 [facility] (47125) Comment: Performed By: #### [id number] # ### MARCUS [facility] [address] [place] [address] U Opiate Scr Negative Negative Normal 12-12-2018 [facility] (47934) Comment: Performed By: #### [id number] # ### MARCUS [facility] [address] [place] [address] U PCP Scr Negative Negative Normal 12-12-2018 [facility] (78735) Comment: Performed By: #### [id number] # ### MARCUS [facility] [place] [address] troponin-i on 12-12 Troponin I.cardiac .01 .00-.03 ng/mL Normal 12-12-2018 [facility] [Mass/Vol] [facility] (22839) Comment: Performed By: #### [id number] # ### MARCUS [facility] [address] [place] [address] magnesium on 12-12 Magnesium [Mass/Vol] 2.0 1.6-2.4 mg/dL Normal 9 [facility] (00 000) Comment: Performed By: #### [id number] # ### MARCUS [facility] [address] [place] [address] hep func panel on Albumin [Mass/Vol] 4.4 3.4-5.0 gm/dL Normal 12-12-2018 [facility] (00 000) Comment: Performed By: #### [id number] # ### MARCUS [facility] [address] [place] [address] Albumin/Globulin [Mass 1.3 1.1-1.9 ratio Normal [facility]] Health Sys tem (87805) Comment: Performed By: #### [id number] # ### MARCUS [facility] [address] [place] [address] Alk Phos 69 33-110 Int._Unit/L Normal 12-12-2018 [facility] (47529) Comment: Performed By: #### [id number] # ### MARCUSShawn [facility] [address] [place] [address] ALT [Catalytic 34 7-45 Int._Unit/L Normal 12-12-2018 [facility] activity/Vol [facility] (47510) Comment: Performed By: #### [id number] # ### MARCUSShawn [facility] [place] [address] AST [Catalytic 69 9-39 Int._Unit/L High 12-12-2018 [facility] activity/Vol] [facility] (42668) Comment: Performed By: #### [id number] # ### MARCUS [employer] [facility] [place] [address] Bili Direct 0.26 0.00-0.30 mg/dL Normal 12-12-2018 [facility] (29114) Comment: Performed By: #### [id number] # ### MARCUS [address] [place] [address] Bili Indirect 0.57 mg/dL Normal 12-12-2018 [facility] (41603) Comment: Result Comment: No establish ed ranges available for the indirect bilirubin Performed By: #### [id number] # ### MARCUS [address] [address] Bili Total 0.83 0.00-1.20 mg/dL Normal 12-12-2018 [facility] (46980) Comment: Performed By: #### [id number] # ### MARCUS [address] [place] [address] Globulin (S) [Mass/Vol] 3.0 2.0-4.0 G/DL Normal 2018 [facility] (00 000) Comment: Performed By: #### [id number] # ### MARCUS [address] [place] [address] Protein [Mass/Vol] 7.7 6.4-8.2 gm/dL Normal 12-12-2018 [facility] (00 000) Comment: Performed By: #### [id number] # ### MARCUS [employer] [facility] [place] [address] ethanol on Ethanol [Mass/Vol] <10 <=10 mg/dL Normal 12-12-2018 [facility] (53505) Comment: Performed By: #### [id number] # ### MARCUS [facility] [address] [place] [address] egfr on 2018-12-12 GFR/1.73 sq M predicted 42 mL/min/1.73 m2 Normal 0 12-12-2018 [facility] among non-blacks [facility] (30810) (S/P/Bld) [Vol rate/Area] Comment: Order Comment: With T4fr Ref kurt Performed By: #### [id number] # ### MARCUS [employer] [facility] [place] [address] GFR/1.73 sq M predicted 35 mL/min/1.73 m2 Normal 0 12-12-2018 [facility] among non-blacks [facility] (31803) (S/P/Bld) [Vol rate/Area] Comment: Order Comment: With T4fr Ref kurt Performed By: #### [id number] # ### MARCUS [employer] [facility] [place] [address] cbc w/ auto diff on 2018-12-12 Erythrocyte distribution 13.8 11.5-14.5 % Normal 12-12 [facility] width (RBC) [Ratio] Health System (86425) Comment: Performed By: #### [id number] # ### MARCUS [employer] [facility] [place] [address] Hematocrit (Bld) [Volume 44.1 36.0-48.0 % Normal 12-12 [facility] fraction] Health Sys tem (82648) Comment: Performed By: #### [id number] # ### MARCUS [facility] [address] [place] [address] Hemoglobin (Bld) 14.4 12.0-16.0 G/DL Normal 12-12-2018 [facility] [Mass/Vol] Health [facility] (99066) Comment: Performed By: #### [id number] # ### MARCUS [employer] [address] [place] [address] MCH (RBC) [Entitic mass] 30.3 27.0-31.0 pg Normal 12-12 [facility] (00 000) Comment: Performed By: #### [id number] # ### MARCUS [address] [place] [address] MCHC (RBC) [Mass/Vol] 32.7 33.0-37.0 G/DL Low 12-12-19 [facility] (00 000) Comment: Performed By: #### [id number] # ### MARCUS [address] [place] [address] MCV (RBC) [Entitic vol] 92.9 78.0-100.0 fL Normal 12-12 [facility] tem (48588) Comment: Performed By: #### [id number] # ### MARCUS [address] [place] [address] Platelet mean volume 8.1 7.4-11.0 fL Normal 9 [facility] (Bld) [Entitic vol] System (01558) Comment: Performed By: #### [id number] # ### MARCUS [address] [address] Platelets (Bld) [#/Vol] 122 130-400 E3/mcL Low 2018 [facility] (00 000) Comment: Performed By: #### [id number] # ### MARCUS [address] [address] RBC (Bld) [#/Vol] 4.75 3.90-5.40 E6/mcL Normal 12-12-2018 [facility] (00 000) Comment: Performed By: #### [id number] # ### MARCUS [address] [place] [address] WBC (Bld) [#/Vol] 6.2 3.6-11.0 E3/mcL Normal 12-12-2018 [facility] (00 000) Comment: Performed By: #### [id number] # ### MARCUS [address] [place] [address] bmp on 2018-12-12 Anion gap [Moles/Vol] 16 10-20 mEq/L Normal 12-12-19 [facility] (00 000) Comment: Performed By: #### [id number] # ### MARCUS [facility] [address] [place] [address] Calcium [Mass/Vol] 9.5 8.6-10.3 mg/dL Normal 12-12-2018 [facility] () Comment: Performed By: #### [id number] # ### MARCUS [facility] [address] [place] [address] Chloride [Moles/Vol] 105 98-107 mEq/L Normal 9 [facility] () Comment: Performed By: #### [id number] # ### MARCUS [facility] [address] [place] [address] CO2 [Moles/Vol] 20.0 21.0-32.0 mEq/L Low 12-12-2018 [facility] (60111) Comment: Performed By: #### [id number] # ### MARCUS [facility] [address] [place] [address] Creatinine [Mass/Vol] 1.6 0.5-1.1 mg/dL High 12-12-19 19 [facility] () Comment: Performed By: #### [id number] # ### MARCUS [facility] [address] [place] [address] Glucose [Mass/Vol] 150 70-99 mg/dL High 12-12-2018 [facility] (32533) Comment: Performed By: #### [id number] # ### MARCUS [facility] [address] [place] [address] Potassium [Moles/Vol] 4.4 3.5-5.3 mEq/L Normal 12-12-19 19 [facility] (00 000) Comment: Performed By: #### [id number] # ### MARCUS [facility] [address] [place] [address] Sodium [Moles/Vol] 137 136-145 mEq/L Normal 12-12-2018 [facility] () Comment: Performed By: #### [id number] # ### MARCUS [facility] [address] [place] [address] Urea nitrogen [Mass/Vol] 27 6-23 mg/dL High 12-12 [facility] (00 000) Comment: Performed By: #### [id number] # ### MARCUS [employer] [address] [place] [address] Urea nitrogen/Creatinine 16.9 5.4-30.0 ratio Normal 12-12 [facility] [Mass ratio] [facility] (41860) Comment: Performed By: #### [id number] # ### MARCUS [employer] [address] [place] [address] auto diff on 12-12 Basophils (Bld) [#/Vol] 0.0 0.0-0.2 E3/mcL Normal 2018 [facility] Sys tem (66175) Comment: Order Comment: With T4fr Ref kurt Performed By: #### [id number] # ### MARCUS [employer] [facility] [place] [address] Basophils/100 WBC (Bld) 0.4 0.0-2.0 % Normal 2018 [facility] (00 000) Comment: Order Comment: With T4fr Ref kurt Performed By: #### [id number] # ### MARCUS [employer] [address] [place] [address] Eos Absolute 0.0 0.0-0.7 E3/mcL Normal 12-12-2018 [facility] (18194) Comment: Order Comment: With T4fr Ref kurt Performed By: #### [id number] # ### MARCUS [employer] [facility] [place] [address] Eosinophils/100 WBC (Bld) 0.1 0.0-11.0 % Normal 11-19 [facility] (00 000) Comment: Order Comment: With T4fr Ref kurt Performed By: #### [id number] # ### MARCUS [employer] [facility] [place] [address] Lymphocytes (Bld) [#/Vol] 0.6 1.2-3.4 E3/mcL Low 11-19 [facility] (00 000) Comment: Order Comment: With T4fr Ref kurt Performed By: #### [id number] # ### MARCUS Bibulu [facility] [place] [address] Lymphocytes/100 WBC (Bld) 9.6 20.0-55.0 % Low 11-19 [facility] (00 000) Comment: Order Comment: With T4fr Ref kurt Performed By: #### [id number] # ### MARCUS [facility] [address] [place] [address] [place] Absolute 0.6 0.0-0.7 E3/mcL Normal 12-12-2018 [facility] (94994) Comment: Order Comment: With T4fr Ref kurt Performed By: #### [id number] # ### MARCUS [employer] [facility] [place] [address] Monocytes/100 WBC (Bld) 9.4 0.0-10.0 % Normal 2018 [facility] (00 000) Comment: Order Comment: With T4fr Ref kurt Performed By: #### [id number] # ### MARCUS [employer] [address] [place] [address] Neutro Absolute 5.0 1.4-6.5 E3/mcL Normal 12-12-2018 [facility] (51139) Comment: Order Comment: With T4fr Ref kurt Performed By: #### [id number] # ### MARCUS [employer] [address] [place] [address] Neutro Auto 80.5 37.0-75.0 % High 12-12-2018 [facility] (35403) Comment: Order Comment: With T4fr Ref kurt Performed By: #### [id number] # ### MARCUS [facility] [address] [place] [address] ua complete on 2018 Color (U) Yellow Yellow Normal 12-03-2018 [facility] (96177) Comment: Performed By: #### [id number] #### MARCUS [employer] [facility] [place] [address] Glucose (U) [Mass/Vol] Negative Negative mg/dL Normal 019 [facility] (85429) Comment: Performed By: #### [id number] #### MARCUS [facility] [address] [place] [address] Ketones Ql (U) Negative Negative Normal 12-03-2018 [facility] (62381) Comment: Performed By: #### [id number] #### MARCUS [facility] [address] [place] [address] RBC (U) [#/Vol] 3-5 0-3 Abnormal 12-03-2018 [facility] (72362) Comment: Performed By: #### [id number] #### MARCUSShawn [facility] [address] [place] [address] UA Blood Negative Negative Normal 12-03-2018 [facility] (06739) Comment: Performed By: #### [id number] #### MARCUSShawn [facility] [address] [place] [address] UA Bacteria 1+ None /HPF Abnormal 12-03-2018 [facility] (90540) Comment: Performed By: #### [id number] #### MARCUSShawn [facility] [address] [place] [address] UA Clarity SltCloudy Clear Abnormal 12-03-2018 [facility] (21926) Comment: Performed By: #### [id number] #### MARCUSShawn [facility] [address] [place] [address] UA Leuk Est Trace Negative Normal 12-03-2018 [facility] (89824) Comment: Performed By: #### [id number] #### MARCUS [facility] [address] [place] [address] UA Nitrite Negative Negative Normal 12-03-2018 [facility] (21489) Comment: Performed By: #### [id number] #### MARCUSShawn [facility] [address] [place] [address] UA pH 6.0 4.6-8.0 Normal 12-03-2018 [facility] (78347) Comment: Performed By: #### [id number] #### MARCUS [facility] [address] [place] [address] UA Protein Negative Negative Normal 12-03-2018 [facility] (95770) Comment: Performed By: #### [id number] #### MARCUS [facility] [address] [place] [address] UA Spec Grav 1.016 1.003-1.030 Normal 12-03-2018 [facility] (90706) Comment: Performed By: #### [id number] #### MARCUS [facility] [address] [place] [address] UA Squam Epithelial 10-20 0-5 Abnormal 12-03-2018 [facility] (54742) Comment: Performed By: #### [id number] #### MARCUS Zelaya [facility] [place] [address] UA Urobilinogen Negative Normal 12-03-2018 [facility] (92686) Comment: Result Comment: Due to a man ufacturing issue, low positive urobilinogen results may be fasely positi ve. Correlate with urine bilirubin and additional clinical/laborato ry findings to assess the risk of hemolytic anemia or liver disease. If clinically indicated, repeat testing with an alternate method is availabl e by contacting the laboratory within 24 hours. Performed By: #### [id number] #### MARCUS WilcoxBlue Sky Rental Studios [facility] [place] [address] UA WBC 5-10 0-5 Abnormal 12-03-2018 [facility] (19855) Comment: Performed By: #### [id number] #### MARCUS WilcoxBlue [employer] R[employer] Studios [facility] [place] [address] Urobilinogen Qn (U) Negative Negative Normal 12-03-2018 [facility] (00 000) Comment: Performed By: #### [id number] #### MARCUS WilcoxBlue [employer] Rental Studios [address] [place] [address] u bhcg qlt on 12-03 HCG.beta subunit Qn Neg Neg m[IU]/mL Normal 12-03-2018 [facility] (00 000) Comment: Performed By: #### [id number] #### MARCUSShawn WilcoxBlue Sky Rental Studios [facility] [place] [address] lipase level on 201 06-19-16 Lipase Lvl 38 9-82 Int._Unit/L Normal 12-03-2018 [facility] (91973) Comment: Performed By: #### [id number] #### MARCUS [employer] [facility] [place] [address] egfr on 2018-12-03 GFR/1.73 sq M predicted 56 mL/min/1.73 m2 Normal 0 12-03-2018 [facility] among non-blacks [facility] (39630) (S/P/Bld) [Vol rate/Area] Comment: Order Comment: Order added erma Aldana Expert. Performed By: #### [id number] #### MARCUS [employer] [address] [place] [address] GFR/1.73 sq M predicted 46 mL/min/1.73 m2 Normal 0 12-03-2018 [facility] among non-blacks [facility] (06611) (S/P/Bld) [Vol rate/Area] Comment: Order Comment: Order added erma Aldana Expert. Performed By: #### [id number] #### MARCUS [employer] [address] [place] [address] ct abdomen/pelvis w/o contrast on 2018-12-03 CT Abdomen/Pelvis w/o Exam Date/Time: Normal Hinduism Contrast 12/03/2018 00:08 EST [facility] Reason for Exam: Sys tem (10281) Pain Report STUDY: CT Abdomen/Pelvis w/o Contrast; 12/03/2018 12:08 am INDICATION: Pain. COMPARISON: 09/22/2018 ACCESSION NUMBER(S): [id number] ORDERING CLINICIAN: Heidy Lane TECHNIQUE: Axial noncontrast [...] Albumin [Mass/Vol] 3.6 3.4-5.0 gm/dL Normal 12-03-2018 [facility] (00 000) Comment: Performed By: #### [id number] #### MARCUS Rem[employer] [address] [place] [address] Albumin/Globulin [Mass 1.5 1.1-1.9 ratio Normal [address] [place] [address] Health Sys tem (54291) Comment: Performed By: #### [id number] #### MARCUS Rem[employer] [address] [place] [address] Alk Phos 69 33-110 Int._Unit/L Normal 12-03-2018 [facility] (41710) Comment: Performed By: #### [id number] #### MARCUS Rem[employer] [address] [place] [address] ALT [Catalytic 13 7-45 Int._Unit/L Normal 12-03-2018 [facility] (35039) Comment: Performed By: #### [id number] #### MARCUS Rem[employer] [address] [place] [address] Anion gap [Moles/Vol] 12 10-20 mEq/L Normal 12-03-19 19 [facility] (00 000) Comment: Performed By: #### [id number] #### MARCUS Rem[employer] [address] [place] [address] AST [Catalytic 19 9-39 Int._Unit/L Normal 12-03-2018 [facility] (62124) Comment: Performed By: #### [id number] #### MARCUS Rem[employer] [address] [place] [address] Bili Total 0.35 0.00-1.20 mg/dL Normal 12-03-2018 [facility] (23023) Comment: Performed By: #### [id number] #### MARCUS Rem[employer] [address] [place] [address] Calcium [Mass/Vol] 8.3 8.6-10.3 mg/dL Low 12-03-2018 [facility] (13222) Comment: Performed By: #### [id number] #### MARCUS Rem[employer] [address] [place] [address] Chloride [Moles/Vol] 110 98-107 mEq/L High [facility] () Comment: Performed By: #### [id number] #### MARCUS Rem[employer] [address] [place] [address] CO2 [Moles/Vol] 22.0 21.0-32.0 mEq/L Normal 12-03-2018 [facility] () Comment: Performed By: #### [id number] #### MARCUS Rem[employer] [address] [place] [address] Creatinine [Mass/Vol] 1.3 0.5-1.1 mg/dL High 12-03-19 [facility] (00 000) Comment: Performed By: #### [id number] #### MARCUS [employer] [address] [place] [address] Globulin (S) [Mass/Vol] 2.0 2.0-4.0 G/DL Normal 2018 [facility] ( 000) Comment: Performed By: #### [id number] #### MARCUS [employer] [address] [place] [address] Glucose [Mass/Vol] 133 70-99 mg/dL High 12-03-2018 [facility] (22318) Comment: Performed By: #### [id number] #### MARCUS Rem[employer] [address] [place] [address] Potassium [Moles/Vol] 4.2 3.5-5.3 mEq/L Normal 12-03-19 [facility] (00 000) Comment: Performed By: #### [id number] #### MARCUS [employer] [address] [place] [address] Protein [Mass/Vol] 6.0 6.4-8.2 gm/dL Low 12-03-2018 [facility] (76859) Comment: Performed By: #### [id number] #### MARCUS JeriBlue [employer] [facility] [place] [address] Sodium [Moles/Vol] 140 136-145 mEq/L Normal 12-03-2018 [facility] (00 000) Comment: Performed By: #### [id number] #### MARCUS [place] [address] [place] [address] Urea nitrogen [Mass/Vol] 9 6-23 mg/dL Normal 12-03 [facility] (00 000) Comment: Performed By: #### [id number] #### MARCUS [place] [address] [place] [address] Urea nitrogen/Creatinine 6.9 5.4-30.0 ratio Normal 12-03 [facility] [Mass ratio] [facility] (79467) Comment: Performed By: #### [id number] #### MARCUS Jeri[address] [address] cbc w/ auto diff on 2018-12-03 Erythrocyte distribution 12.9 11.5-14.5 % Normal 12-03 [facility] width (RBC) [Ratio] Health System (96985) Comment: Performed By: #### [id number] #### MARCUS Wilcox[address] [address] Hematocrit (Bld) [Volume 42.4 36.0-48.0 % Normal 12-03 [facility] fraction] Health Sys tem (72391) Comment: Performed By: #### [id number] #### MARCUSShawn [address] [place] [address] [place] [address] Hemoglobin (Bld) 14.1 12.0-16.0 G/DL Normal 12-03-2018 [facility] [Mass/Vol] Health Sy stem (05748) Comment: Performed By: #### [id number] #### MARCUS [place] [place] [place] [address] MCH (RBC) [Entitic mass] 30.5 27.0-31.0 pg Normal 12-03 [facility] (00 000) Comment: Performed By: #### [id number] #### MARCUS Zelaya [facility] [place] [address] MCHC (RBC) [Mass/Vol] 33.3 33.0-37.0 G/DL Normal 12-03-19 19 [facility] (00 000) Comment: Performed By: #### [id number] #### MARCUS Zelaya [address] [place] [address] MCV (RBC) [Entitic vol] 91.5 78.0-100.0 fL Normal 12-03 [facility] Sys tem (34942) Comment: Performed By: #### [id number] #### MARCUS Zelaya [facility] [place] [address] Platelet mean volume (Bld) 7.2 7.4-11.0 fL Low [facility] [Entitic vol] System (40455) Comment: Performed By: #### [id number] #### MARCUS Wilcox[address] [address] Platelets (Bld) [#/Vol] 121 130-400 E3/mcL Low 2018 [facility] (00 000) Comment: Performed By: #### [id number] #### MARCUS Wilcox[address] [address] RBC (Bld) [#/Vol] 4.64 3.90-5.40 E6/mcL Normal 12-03-2018 [facility] (00 000) Comment: Performed By: #### [id number] #### [place] [address] [place] [address] WBC (Bld) [#/Vol] 4.5 3.6-11.0 E3/mcL Normal 12-03-2018 [facility] (00 000) Comment: Performed By: #### [id number] #### MARCUS Zelaya [facility] [place] [address] auto diff on 2019-0 2-16 Basophils (Bld) [#/Vol] 0.0 0.0-0.2 E3/mcL Normal 2018 [facility] Sys tem (10001) Comment: Order Comment: Order added b y Discern Expert. Performed By: #### [id number] #### MARCUS WilcoxBlue [employer] [facility] [place] [address] Basophils/100 WBC (Bld) 0.6 0.0-2.0 % Normal 2018 [facility] (00 000) Comment: Order Comment: Order added b y Discern Expert. Performed By: #### [id number] #### MARCUS Jer[employer] [address] [place] [address] Eos Absolute 0.1 0.0-0.7 E3/mcL Normal 12-03-2018 [facility] (48916) Comment: Order Comment: Order added b y Discern Expert. Performed By: #### [id number] #### [facility] [employer] [address] [place] [address] Eosinophils/100 WBC (Bld) 2.6 0.0-11.0 % Normal 11-18 [facility] (00 000) Comment: Order Comment: Order added b y Discern Expert. Performed By: #### [id number] #### [facility] [employer] [address] [place] [address] Lymphocytes (Bld) [#/Vol] 1.2 1.2-3.4 E3/mcL Normal 11-18 [facility] tem (77051) Comment: Order Comment: Order added b y Discern Expert. Performed By: #### [id number] #### MARCUS [employer]Blue [employer] [address] [place] [address] Lymphocytes/100 WBC (Bld) 27.2 20.0-55.0 % Normal 11-18 [facility] (99437) Comment: Order Comment: Order added b y Discern Expert. Performed By: #### [id number] #### [facility] [employer] [address] [place] [address] [place] Absolute 0.3 0.0-0.7 E3/mcL Normal 12-03-2018 [facility] (24764) Comment: Order Comment: Order added b y Discern Expert. Performed By: #### [id number] #### MARCUS Bibulu [facility] [place] [address] Monocytes/100 WBC (Bld) 7.7 0.0-10.0 % Normal 2018 [facility] (00 000) Comment: Order Comment: Order added erma Aldana Expert. Performed By: #### [id number] #### MARCUS WilcoxChem [address] [place] [id number] Neutro Absolute 2.8 1.4-6.5 E3/mcL Normal 12-03-2018 [facility] (94845) Comment: Order Comment: Order added erma Aldana Expert. Performed By: #### [id number] #### MARCUS Zelaya [address] [place] [address] Neutro Auto 61.9 37.0-75.0 % Normal 12-03-2018 [facility] (07522) Comment: Order Comment: Order added erma Aldana Expert. Performed By: #### [id number] #### MARCUS Zelaya [address] [place] [address] ct head or brain w/ + w/o contrast on 2018-12-01 CT Head or Brain Exam Date/Time: Normal 019 [facility] w/ + w/o Contrast 12/01/2018 12:05 [facility] Reason for Exam: (00 000) ABN GAIT Report STUDY: CT Head or Brain w/ + w/o Contrast; 12/01/2018 12:05 pm INDICATION: ABN GAIT. COMPARISON: 04/29/2016 ACCESSION NUMBER(S): [id number] ORDERING CLINICIAN: Ana Hodge TECHNIQUE: Axial images [...] Ag IA Final Report: Normal 11-27-19 19 [facility] (Unsp spec) [facility] screen negative (000 00) Comment: Performed By: #### [id number] #### MARCUS Rem[employer] [address] [place] [address] lipid panel on 2018 Cholesterol in HDL mass 43 40-59 mg/dL Normal 2018 [facility] (53334) Comment: Performed By: #### GLUX #### Unless otherwise noted, all [facility] [address] [facility] [place] [address] CLIA: [id number] Twisting Machine Operator: Ismael vines M.D. Cholesterol in LDL mass 163 10-150 mg/dL High 2018 [facility] (21336) Comment: Performed By: #### GLUX #### Unless otherwise noted, all testing performed by [facility] [address] [facility] [place] [address] CLIA: [id number] Twisting Machine Operator: Ismael vines M.D. Cholesterol in VLDL mass 41 5-40 mg/dL High 11-22 [facility] (91603) Comment: Performed By: #### GLUX #### Unless otherwise noted, all testing performed by [facility] l [address] [place] [address] CLIA: [id number] Twisting Machine Operator: Ismael vines M.D. Cholesterol mass conc 247 100-199 mg/dL High 11-22-19 19 [facility] (36997) Comment: Performed By: #### GLUX #### Unless otherwise noted, all testing performed by [facility] l [address] [facility]. [place] [address] CLIA: [id number] Twisting Machine Operator: Ismael vines M.D. Cholesterol.total/Cholesterol in HDL 5.7 3.2-5.0 Hig h 11-22-2018 [facility] mass [facility] (96358) Comment: Result Comment: Female Coron xavier Heart Disease Risk Factor (CHDRF): Average risk= 4.4 1/2 Average risk= 3.3 2 times Average risk= 7.1 Performed By: #### GLUX #### Unless otherwise noted, all testing performed by [facility] [address] [facility]. [place] [address] CLIA: [id number] Twisting Machine Operator: Ismael vines M.D. Triglyceride mass conc 206 30-150 mg/dL High 019 [facility] (62780) Comment: Performed By: #### GLUX #### Unless otherwise noted, all testing performed by [address] [place] [address] CLIA: [id number] Twisting Machine Operator: Ismael vines M.D. No panel information on 2018-11-22 Cholesterol in HDL mass conc 43 40 - 59 mg/dL 0 11-22-2018 [facility] (94271) Cholesterol in LDL mass conc 163 10 - 150 mg/dL High 0 11-22-2018 [facility] (93988) Cholesterol in VLDL mass conc 41 5 - 40 mg/dL High 11-22-2018 [facility] (01783) Cholesterol mass conc 247 100 - 199 mg/dL High 11-22-19 19 [facility] (18495) Cholesterol.total/Cholesterol 5.7 OTH - OTH High 11-22-2018 [facility] (37159) in HDL mass ratio Comment: Female Coronary Heart Diseas e Risk Factor (CHDRF): Average risk= 4.4 1/2 Average risk= 3.3 2 times Average risk= 7.1 Interpretation and review Abnormal [facility] (42875) of laboratory results Triglyceride mass conc 206 30 - 150 mg/dL High 019 [facility] (49835) zzplt morph on 2018 Platelet morphology finding ENLARGED Normal [facility] Nom (d) System (00 000) Comment: Performed By: #### [id number] # ### MARCUS Rem[employer] [address] [place] [address] Platelets (Bld) [#/Vol] DECREASED Normal 2018 [facility] (00 000) Comment: Performed By: #### [id number] # ### MARCUS [facility] [address] [place] [address] ua complete on 2018 Color (U) Straw Yellow Normal 11-17-2018 [facility] (41989) Comment: Performed By: #### [id number] # ### MARCUS Rem[employer] [address] [place] [address] Glucose (U) [Mass/Vol] Negative Negative mg/dL Normal 019 [facility] Sys tem (08284) Comment: Performed By: #### [id number] # ### MARCUS Rem[employer] [address] [place] [address] Ketones Ql (U) Negative Negative Normal 11-17-2018 [facility] (74094) Comment: Performed By: #### [id number] # ### MARCUS Rem[employer] [address] [place] [address] UA Blood Negative Negative Normal 11-17-2018 [facility] (50335) Comment: Performed By: #### [id number] # ### MARCUS [employer] [address] [place] [address] UA Clarity Clear Clear Normal 11-17-2018 [facility] (69490) Comment: Performed By: #### [id number] # ### MARCUS [facility] [address] [place] [address] UA Leuk Est Negative Negative Normal 11-17-2018 [facility] (33629) Comment: Performed By: #### [id number] # ### MARCUS Rem[employer] [address] [place] [address] UA Nitrite Negative Negative Normal 11-17-2018 [facility] (92727) Comment: Performed By: #### [id number] # ### MARCUS WilcoxChem [address] [place] [address] UA pH 6.0 4.6-8.0 Normal 11-17-2018 [facility] (74203) Comment: Performed By: #### [id number] # ### MARCUS Rem[employer] [address] [place] [address] UA Protein Negative Negative Normal 11-17-2018 [facility] (93580) Comment: Performed By: #### [id number] # ### MARCUS [facility] [address] [place] [address] UA Spec Grav 1.009 1.003-1.030 Normal 11-17-2018 [facility] (41819) Comment: Performed By: #### [id number] # ### MARCUS RemChem [facility] [place] [address] UA Squam Epithelial 0-5 0-5 Normal 11-17-2018 [facility] (58052) Comment: Performed By: #### [id number] # ### MARCUS Rem[employer] [address] [place] [address] UA Urobilinogen Negative Normal 11-17-2018 [facility] (66895) Comment: Result Comment: Due to a man ufacturing issue, low positive urobilinogen results may be fasely positi ve. Correlate with urine bilirubin and additional clinical/laborato ry findings to assess the risk of hemolytic anemia or liver disease. If clinically indicated, repeat testing with an alternate method is availabl e by contacting the laboratory within 24 hours. Performed By: #### [id number] # ### MARCUS [facility] [address] [place] [address] UA WBC 0-5 0-5 Normal 11-17-2018 [facility] (26928) Comment: Performed By: #### [id number] # ### MARCUS [facility] [address] [place] [address] Urobilinogen Qn (U) Negative Negative Normal 11-17-2018 [facility] (00 000) Comment: Performed By: #### [id number] # ### MARCUS Zelaya [address] [place] [address] u bhcg qlt on 11-17 HCG.beta subunit Qn Neg Neg m[IU]/mL Normal 11-17-2018 [facility] (00 000) Comment: Performed By: #### [id number] # ### MARCUS Zelaya [facility] [place] [address] morph on 2018-11-17 RBC morphology finding Nom NORMAL Normal [facility] (Bld) System (00 000) Comment: Order Comment: Order Added b y Discern Expert. Performed By: #### [id number] # ### MARCUS Zelaya [facility] [place] [address] lipase level on 201 06-18-31 Lipase Lvl 48 9-82 Int._Unit/L Normal 11-17-2018 [facility] (70719) Comment: Performed By: #### [id number] # ### MARCUS [address] [address] hep func panel on 2 Albumin [Mass/Vol] 3.8 3.4-5.0 gm/dL Normal 11-17-2018 [facility] (00 000) Comment: Performed By: #### [id number] # ### MARCUS [address] [place] [address] Albumin/Globulin [Mass 1.8 1.1-1.9 ratio Normal [address] [place] [address]] Health Sys tem (03453) Comment: Performed By: #### [id number] # ### MARCUS Nathalie [facility] [place] [address] Alk Phos 59 33-110 Int._Unit/L Normal 11-17-2018 [facility] (13092) Comment: Performed By: #### [id number] # ### MARCUS Jeri[employer] [address] [place] [address] ALT [Catalytic 18 7-45 Int._Unit/L Normal 11-17-2018 [facility] activity/Vol] Health System (99451) Comment: Performed By: #### [id number] # ### MARCUSShawn WilcoxChem [address] [place] [address] AST [Catalytic 28 9-39 Int._Unit/L Normal 11-17-2018 [facility] activity/[facility] (03087) Comment: Performed By: #### [id number] # ### MARCUS [address] [place] [address] Bili Direct 0.07 0.00-0.30 mg/dL Normal 11-17-2018 [facility] (74135) Comment: Performed By: #### [id number] # ### MARCUS Zelaya [facility] [place] [address] Bili Indirect 0.38 mg/dL Normal 11-17-2018 [facility] (67507) Comment: Result Comment: No establish ed ranges available for the indirect bilirubin Performed By: #### [id number] # ### MARCUSShawn Zelaya [address] [place] [address] Bili Total 0.45 0.00-1.20 mg/dL Normal 11-17-2018 [facility] (94366) Comment: Performed By: #### [id number] # ### MARCUSShawn Zelaya [address] [place] [address] Globulin (S) [Mass/Vol] 2.0 2.0-4.0 G/DL Normal 2018 [facility] (00 000) Comment: Performed By: #### [id number] # ### MARCUSShawn Wilcox[address] [address] Protein [Mass/Vol] 5.9 6.4-8.2 gm/dL Low 11-17-2018 [facility] (88262) Comment: Performed By: #### [id number] # ### [facility] [address] [place] [address] egfr on 2018-11-17 GFR/1.73 sq M predicted 56 mL/min/1.73 m2 Normal 0 11-17-2018 [facility] among non-blacks MDRD [facility] (28554) (S/P/Bld) [Vol rate/Area] Comment: Order Comment: Order added b y Discern Expert. Performed By: #### [id number] # ### MARCUSShawn [address] [place] [address] GFR/1.73 sq M predicted 46 mL/min/1.73 m2 Normal 0 11-17-2018 [facility] among non-blacks [facility] (11240) (S/P/Bld) [Vol rate/Area] Comment: Order Comment: Order added b y Discern Expert. Performed By: #### [id number] # ### MARCUSShawn Zelaya [address] [place] [address] cbc w/ auto diff on 2018-11-17 Erythrocyte distribution 13.2 11.5-14.5 % Normal 11-17 [facility] width (RBC) [Ratio] Health System (67865) Comment: Performed By: #### [id number] # ### MARCUS JeriChem [facility] [place] [address] Hematocrit (Bld) [Volume 41.0 36.0-48.0 % Normal 11-17 [facility] fraction] Health Sys tem (60319) Comment: Performed By: #### [id number] # ### MARCUS JeriChem [facility] [place] [address] Hemoglobin (Bld) 13.8 12.0-16.0 G/DL Normal 11-17-2018 [facility] [Mass/Vol] Health Sy stem (56202) Comment: Performed By: #### [id number] # ### MARCUS JeriChem [address] [place] [address] MCH (RBC) [Entitic mass] 30.9 27.0-31.0 pg Normal 11-17 [facility] (00 000) Comment: Performed By: #### [id number] # ### MARCUS Rem[employer] [address] [place] [address] MCHC (RBC) [Mass/Vol] 33.6 33.0-37.0 G/DL Normal 11-17-19 19 [facility] (00 000) Comment: Performed By: #### [id number] # ### MARCUS [facility] [address] [place] [address] MCV (RBC) [Entitic vol] 91.9 78.0-100.0 fL Normal 11-17 [facility] Sys tem (47705) Comment: Performed By: #### [id number] # ### MARCUS JeriChem [address] [place] [address] Platelet mean volume 7.6 7.4-11.0 fL Normal 9 [facility] (Bld) [Entitic vol] System (44420) Comment: Performed By: #### [id number] # ### MARCUS [facility]i[employer] [address] [place] [address] Platelets (Bld) [#/Vol] 82 130-400 E3/mcL Low 2018 [facility] (00 000) Comment: Performed By: #### [id number] # ### MARCUS [employer]Blue [employer] [facility] [place] [address] RBC (Bld) [#/Vol] 4.46 3.90-5.40 E6/mcL Normal 11-17-2018 [facility] ( 000) Comment: Performed By: #### [id number] # ### MARCUS WilcoxBlue Sky Rental Studios [facility] [place] [address] WBC (Bld) [#/Vol] 4.2 3.6-11.0 E3/mcL Normal 11-17-2018 [facility] ( 000) Comment: Performed By: #### [id number] # ### MARCUS JeriBlue [employer] [facility] [place] [address] bmp on 2018-11-17 Anion gap [Moles/Vol] 11 10-20 mEq/L Normal 11-17-19 19 [facility] ( 000) Comment: Performed By: #### [id number] # ### MARCUS WilcoxBlue [employer] Studios [address] [place] [address] Calcium [Mass/Vol] 8.7 8.6-10.3 mg/dL Normal 11-17-2018 [facility] ( 000) Comment: Performed By: #### [id number] # ### MARCUS [employer] [address] [place] [address] Chloride [Moles/Vol] 108 98-107 mEq/L High 9 [facility] ( 000) Comment: Performed By: #### [id number] # ### MARCUS Rem[employer] [address] [place] [address] CO2 [Moles/Vol] 21.0 21.0-32.0 mEq/L Normal 11-17-2018 [facility] (00 000) Comment: Performed By: #### [id number] # ### MARCUS JeriChem [address] [place] [address] Creatinine [Mass/Vol] 1.2 0.5-1.1 mg/dL High 11-17-19 19 [facility] (00 000) Comment: Performed By: #### [id number] # ### MARCUS [employer] [address] [place] [address] Glucose [Mass/Vol] 103 70-99 mg/dL High 11-17-2018 [facility] (06988) Comment: Performed By: #### [id number] # ### MARCUS JeriChem [address] [place] [address] Potassium [Moles/Vol] 3.7 3.5-5.3 mEq/L Normal 11-17-19 19 [facility] (00 000) Comment: Performed By: #### [id number] # ### MARCUS JeriChem [facility] [place] [address] Sodium [Moles/Vol] 136 136-145 mEq/L Normal 11-17-2018 [facility] (00 000) Comment: Performed By: #### [id number] # ### MARCUS [facility] [address] [place] [address] Urea nitrogen [Mass/Vol] 15 6-23 mg/dL Normal 11-17 [facility] (00 000) Comment: Performed By: #### [id number] # ### MARCUS JeriChem [address] [place] [address] Urea nitrogen/Creatinine 12.5 5.4-30.0 ratio Normal 11-17 [facility] [Mass ratio] [facility] (87479) Comment: Performed By: #### [id number] # ### MARCUS JeriChem [address] [place] [address] auto diff on 11-17 Basophils (Bld) [#/Vol] 0.0 0.0-0.2 E3/mcL Normal 2018 [facility] Sys tem (08218) Comment: Order Comment: Order Added b y Discern Expert. Performed By: #### [id number] # ### MARCUS WilcoxChem [address] [place] [address] Basophils/100 WBC (Bld) 0.3 0.0-2.0 % Normal 2018 [facility] (00 000) Comment: Order Comment: Order Added erma Aldana Expert. Performed By: #### [id number] # ### MARCUS [employer] [address] [place] [address] Eos Absolute 0.1 0.0-0.7 E3/mcL Normal 11-17-2018 [facility] (52859) Comment: Order Comment: Order Added b y Discern Expert. Performed By: #### [id number] # ### MARCUS [employer] [address] [place] [address] 19606 Eosinophils/100 WBC (Bld) 2.4 0.0-11.0 % Normal 10-20 [facility] (00 000) Comment: Order Comment: Order Added erma Aldana Expert. Performed By: #### [id number] # ### MARCUS [employer] [address] [place] [address] 22203 Lymphocytes (Bld) [#/Vol] 1.2 1.2-3.4 E3/mcL Normal 10-20 [facility] tem (82686) Comment: Order Comment: Order Added erma Aldana Expert. Performed By: #### [id number] # ### MARCUS [employer] [address] [place] [address] 64346 Lymphocytes/100 WBC (Bld) 27.6 20.0-55.0 % Normal 10-20 [facility] (48874) Comment: Order Comment: Order Added erma lizama Discern Expert. Performed By: #### [id number] # ### MARCUS [employer] [address] [place] [address] 16[address] [place] Absolute 0.4 0.0-0.7 E3/mcL Normal 11-17-2018 [facility] (96095) Comment: Order Comment: Order Added b y Discern Expert. Performed By: #### [id number] # ### MARCUS [employer] [address] [place] [address] Monocytes/100 WBC (Bld) 8.8 0.0-10.0 % Normal 2018 [facility] (00 000) Comment: Order Comment: Order Added erma Aldana Expert. Performed By: #### [id number] # ### MARCUS Zelaya [facility] [place] [id number] Neutro Absolute 2.5 1.4-6.5 E3/mcL Normal 11-17-2018 [facility] (97970) Comment: Order Comment: Order Added erma Aldana Expert. Performed By: #### [id number] # ### MARCUS Zelaya [address] [place] [address] Neutro Auto 60.4 37.0-75.0 % Normal 11-17-2018 [facility] (67384) Comment: Order Comment: Order Added erma Aldana Expert. Performed By: #### [id number] # ### MARCUS [place] [id number] lab miscellaneous o n 2018-10-28 Status See Ref Lab Report Normal 10-28-2018 [facility] (96347) Comment: Performed By: #### [id number] # ### MARCUS Kostascorky [address] [place], [place] [id number] zzplt morph on 2018 Platelet morphology finding NORMAL Normal [facility] System (00 000) Comment: Performed By: #### [id number] # ### MARCUS Kenyoncorky [facility] [place] [id number] Platelets (d) [#/Vol] DECREASED Normal 2018 [facility] (00 000) Comment: Performed By: #### [id number] # ### MARCUS Kostascorky [address] [place], [place] [id number] valproic acid on 05-11-08 Valpro Acid Lvl 91 50-100 microgram/mL Normal 10-26-2018 [facility] (00 000) Comment: Performed By: #### [id number] # ### MARCUS Kostaso [address] [place], [place] [address] manual diff on 2018 Band form neutrophils/100 WBC 1 0-1 Normal 10-26-2018 [facility] (d) System (00 000) Comment: Order Comment: Order Added erma Aldana Expert. Performed By: #### [id number] # ### MARCUS WilcoxHemo [address] [place] [address] Basophil Man 0 0-1 % Normal 10-26-2018 [facility] (63044) Comment: Order Comment: Order Added b dl Discern Expert. Performed By: #### [id number] # ### MARCUS WilcoxHemo [address] [place] [address] Eosinophils/100 WBC (Bld) 3 0-5 % Normal [facility] (50049) Comment: Order Comment: Order Added b y Discern Expert. Performed By: #### [id number] # ### MARCUS WilcoxHemo [address] [place] [address] Lymphocytes/100 WBC (Bld) 37 14-48 % Normal [facility] (00 000) Comment: Order Comment: Order Added b y Discern Expert. Performed By: #### [id number] # ### MARCUS JeriHemo [address] [place] [address] Monocyte Man 8 1-11 % Normal 10-26-2018 [facility] (34219) Comment: Order Comment: Order Added b y Discern Expert. Performed By: #### [id number] # ### MARCUS JeriHemo [address] [place] [address] RBC morphology finding Nom NORMAL Normal [facility] System (00 000) Comment: Order Comment: Order Added b y Discern Expert. Performed By: #### [id number] # ### MARCUS JeriHemo [address] [place] [address] Segs Man 51 37-75 % Normal 10-26-2018 [facility] (85480) Comment: Order Comment: Order Added b y Discern Expert. Performed By: #### [id number] # ### MARCUS JeriHemo [address] [place] [address] lab miscellaneous o n 2018-10-26 Test Name topamax Normal 10-26-2018 [facility] (42935) Comment: Performed By: #### [id number] # ### MARCUS JeriHemo [address] [place] [address] egfr on 2018-10-26 GFR/1.73 sq M predicted 45 mL/min/1.73 m2 Normal 0 10-26-2018 [facility] among non-blacks MDRD [facility] (42791) (S/P/Bld) [Vol rate/Area] Comment: Order Comment: Order Added erma y Katya Expert. Performed By: #### [id number] # ### MARCUS Kenyono [facility] [place] [address] GFR/1.73 sq M predicted 37 mL/min/1.73 m2 Normal 0 10-26-2018 [facility] among non-blacks [facility] (05734) (S/P/Bld) [Vol rate/Area] Comment: Order Comment: Order Added erma Aldana Expert. Performed By: #### [id number] # ### MARCUS Kenyon[address] [address] cmp on 2018-10-26 Albumin [Mass/Vol] 4.2 3.4-5.0 gm/dL Normal 10-26-2018 [facility] (00 000) Comment: Performed By: #### [id number] # ### MARCUS Kenyono [address] [place] [address]238 Albumin/Globulin [Mass 1.6 1.1-1.9 ratio Normal 019 [facility] tem (87519) Comment: Performed By: #### [id number] # ### MARCUS Kenyono [facility] [place] [address] Alk Phos 66 33-110 Int._Unit/L Normal 10-26-2018 [facility] (43913) Comment: Performed By: #### [id number] # ### MARCUS Kenyono [facility] [place] [address] ALT [Catalytic 22 7-45 Int._Unit/L Normal 10-26-2018 [facility] activity/Vol [facility] (75657) Comment: Performed By: #### [id number] # ### MARCUSShawn WilcoxHemo [facility] [place] [address] Anion gap [Moles/Vol] 12 10-20 mEq/L Normal 10-26-19 19 [facility] (00 000) Comment: Performed By: #### [id number] # ### MARCUS WilcoxHemo [address] [place] [address] AST [Catalytic 33 9-39 Int._Unit/L Normal 10-26-2018 [facility] (74428) Comment: Performed By: #### [id number] # ### MARCUS WilcoxHemo [address] [place] [address] Bili Total 0.38 0.00-1.20 mg/dL Normal 10-26-2018 [facility] (98802) Comment: Performed By: #### [id number] # ### MARCUS WilcoxHemo [address] [place] [address] Calcium [Mass/Vol] 9.2 8.6-10.3 mg/dL Normal 10-26-2018 [facility] (00 000) Comment: Performed By: #### [id number] # ### MARCUS WilcoxHemo [facility] [place] [address] Chloride [Moles/Vol] 110 98-107 mEq/L High [facility] () Comment: Performed By: #### [id number] # ### MARCUS WilcoxHemo [address] [place] [address] CO2 [Moles/Vol] 24.0 21.0-32.0 mEq/L Normal 10-26-2018 [facility] (00 000) Comment: Performed By: #### [id number] # ### MARCUS WilcoxHemo [address] [place] [address] Creatinine [Mass/Vol] 1.5 0.5-1.1 mg/dL High 10-26-19 19 [facility] (00 000) Comment: Performed By: #### [id number] # ### MARCUS RemHemo [address] [place] [address] Globulin (S) [Mass/Vol] 3.0 2.0-4.0 G/DL Normal 2018 [facility] (00 000) Comment: Performed By: #### [id number] # ### MARCUS RemHemo [address] [place] [address] Glucose [Mass/Vol] 97 70-99 mg/dL Normal 10-26-2018 [facility] (96533) Comment: Performed By: #### [id number] # ### MARCUS WilcoxHemo [address] [place] [address] Potassium [Moles/Vol] 4.9 3.5-5.3 mEq/L Normal 10-26-19 [facility] (00 000) Comment: Performed By: #### [id number] # ### MARCUS WilcoxHemo [address] [place] [address] Protein [Mass/Vol] 6.9 6.4-8.2 gm/dL Normal 10-26-2018 [facility] (00 000) Comment: Performed By: #### [id number] # ### MARCUS WilcoxHemo [facility] [place] [address] Sodium [Moles/Vol] 141 136-145 mEq/L Normal 10-26-2018 [facility] (00 000) Comment: Performed By: #### [id number] # ### MARCUS WilcoxHemo [facility] [place] [address] Urea nitrogen [Mass/Vol] 17 6-23 mg/dL Normal 10-26 [facility] (00 000) Comment: Performed By: #### [id number] # ### MARCUS WilcoxHemo [address] [place] [address] 12177 Urea nitrogen/Creatinine 11.3 5.4-30.0 ratio Normal 10-26 [facility] [Mass ratio] [facility] System (50516) Comment: Performed By: #### [id number] # ### MARCUS JeriHemo [facility] [place] [address] cbc w/ auto diff on 2018-10-26 Erythrocyte distribution 13.2 11.5-14.5 % Normal 10-26 [facility] width (RBC) [Ratio] [facility] (66281) Comment: Performed By: #### [id number] # ### MARCUS WilcoxHemo [facility] [place] [address] Hematocrit (Bld) [Volume 44.4 36.0-48.0 % Normal 10-26 [facility]] [facility] tem (57408) Comment: Performed By: #### [id number] # ### MARCUSShawn WilcoxHemo [facility] [place] [address] Hemoglobin (Bld) 14.8 12.0-16.0 G/DL Normal 10-26-2018 [facility] [Mass/Vol] Health Sy stem (90851) Comment: Performed By: #### [id number] # ### MARCUS WilcoxHemo [address] [place] [address] MCH (RBC) [Entitic mass] 30.7 27.0-31.0 pg Normal 10-26 [facility] (00 000) Comment: Performed By: #### [id number] # ### MARCUS WilcoxHemo [facility] [place] [address] MCHC (RBC) [Mass/Vol] 33.3 33.0-37.0 G/DL Normal 10-26-19 19 [facility] () Comment: Performed By: #### [id number] # ### MARCUS WilcoxHemo [facility] [place] [address] MCV (RBC) [Entitic vol] 92.1 78.0-100.0 fL Normal 10-26 [facility] tem (59764) Comment: Performed By: #### [id number] # ### MARCUS WilcoxHemo [facility] [place] [address] Platelet mean volume 7.8 7.4-11.0 fL Normal 9 [facility] (Bld) [Entitic vol] System (66609) Comment: Performed By: #### [id number] # ### MARCUS RemHemo [facility] [place] [address] Platelets (Bld) [#/Vol] 93 130-400 E3/mcL Low 2018 [facility] ( 000) Comment: Performed By: #### [id number] # ### MARCUS RemHemo [address] [place] [address] RBC (Bld) [#/Vol] 4.82 3.90-5.40 E6/mcL Normal 10-26-2018 [facility] (00 000) Comment: Performed By: #### [id number] # ### MARCUS RemHemo [address] [place] [address] WBC (Bld) [#/Vol] 4.7 3.6-11.0 E3/mcL Normal 10-26-2018 [facility] (00 000) Comment: Performed By: #### [id number] # ### MARCUS RemHemo [address] [place] [address] xr spine lumbosacral 2 or 3 views on 2018-10-14 XR Spine Lumbosacral Exam Date/Time: Normal [facility] 2 or 3 Views 10/14/2018 15:28 [facility] Reason for Exam: (00 000) Back pain Report STUDY: XR Spine Lumbosacral 2 or 3 Views; 10/14/2018 3:28 pm INDICATION: Back pain. COMPARISON: 01/21/2017 ACCESSION NUMBER(S): [id number] ORDERING CLINICIAN: Moi De La Cruz FINDINGS: [...] Signed by: Bhupinder Berger MD Technologist: [facility] ua complete on 2017 Color (U) Yellow Yellow Normal 10-14-2018 [facility] (90432) Comment: Performed By: #### [id number] # ### MARCUS RemHemo [facility] [place] [address] Glucose (U) [Mass/Vol] Negative Negative mg/dL Normal 018 [facility] tem (58498) Comment: Performed By: #### [id number] # ### MARCUS RemHemo [address] [place] [address] Ketones Ql (U) Negative Negative Normal 10-14-2018 [facility] (25518) Comment: Performed By: #### [id number] # ### MARCUS RemHemo [facility] [place] [address] RBC (U) [#/Vol] 10-20 0-3 Abnormal 10-14-2018 [facility] (17907) Comment: Performed By: #### [id number] # ### MARCUS WilcoxHemo [address] [place] [address] UA Blood Negative Negative Normal 10-14-2018 [facility] (04418) Comment: Performed By: #### [id number] # ### MARCUS WilcoxHemo [address] [place] [address] UA Clarity Cloudy Clear Abnormal 10-14-2018 [facility] (53399) Comment: Performed By: #### [id number] # ### MARCUS WilcoxHemo [facility] [place] [address] UA Hyal Cast 5-10 0-2 Abnormal 10-14-2018 [facility] (06923) Comment: Performed By: #### [id number] # ### MARCUS WilcoxHemo [facility] [place] [address] UA Leuk Est 3+ Negative Abnormal 10-14-2018 [facility] (70200) Comment: Performed By: #### [id number] # ### MARCUS WilcoxHemo [address] [place] [address] UA Mucous Trace Trace Abnormal 10-14-2018 [facility] (84727) Comment: Performed By: #### [id number] # ### MARCUS WilcoxHemo [address] [place] [address] UA Nitrite Negative Negative Normal 10-14-2018 [facility] (41431) Comment: Performed By: #### [id number] # ### MARCUS WilcoxHemo [address] [place] [address] UA pH 7.0 4.6-8.0 Normal 10-14-2018 [facility] (89237) Comment: Performed By: #### [id number] # ### MARCUS WilcoxHemo [address] [place] [address] UA Protein Negative Negative Normal 10-14-2018 [facility] (76935) Comment: Performed By: #### [id number] # ### MARCUS WilcoxHemo [address] [place] [address] UA Spec Grav 1.016 1.003-1.030 Normal 10-14-2018 [facility] (36977) Comment: Performed By: #### [id number] # ### MARCUS WilcoxHemo [address] [place] [address] UA Squam Epithelial >30 0-5 Abnormal 10-14-2018 [facility] (20683) Comment: Performed By: #### [id number] # ### MARCUS WilcoxHemo [address] [place] [address] UA Urobilinogen Negative Normal 10-14-2018 [facility] (83283) Comment: Result Comment: Due to a man ufacturing issue, low positive urobilinogen results may be fasely positi ve. Correlate with urine bilirubin and additional clinical/laborato ry findings to assess the risk of hemolytic anemia or liver disease. If clinically indicated, repeat testing with an alternate method is availabl e by contacting the laboratory within 24 hours. Performed By: #### [id number] # ### MARCUS WilcoxHemo [address] [place] [address] UA WBC 10-20 0-5 Abnormal 10-14-2018 [facility] (20653) Comment: Performed By: #### [id number] # ### MARCUS WilcoxHemo [address] [place] [address] Urobilinogen Qn (U) Negative Negative Normal 10-14-2018 [facility] (00 000) Comment: Performed By: #### [id number] # ### MARCUS WilcoxHemo [facility] [place] [address] xr chest ap portable on 2018-10-02 XR Chest AP Exam Date/Time: Normal 10-02-2018 [facility] Portable 10/02/2018 11:20 EST Health System Reason for Exam: (00 000) Chest pain Report STUDY: XR Chest AP Portable; 10/02/2018 11:20 am INDICATION: Chest pain. COMPARISON: 12/15/2017 ACCESSION NUMBER(S): [id number] ORDERING CLINICIAN: Moi De La Cruz FINDINGS: [...] Troponin I.cardiac <.01 .00-.03 ng/mL Normal 10-02-2018 [facility] [Mass/Vol] [facility] (85190) Comment: Performed By: #### [id number] # ### [facility] Jeriwunderloopo [facility] [place] [address] Troponin I.cardiac .01 .00-.03 ng/mL Normal 10-02-2018 [facility] [Mass/Vol] [facility] stem (51373) Comment: Performed By: #### [id number] #### [address] [address] ptt on 2018-10-02 aPTT Coag (Bld) 28.3 23.2-36.4 second(s) Normal 10-02-2018 [facility] [Time] [facility] tem (99062) Comment: Performed By: #### [id number] #### MARCUSShawn Wilcoxwunderloopo [address] [place] [address] ptt control ratio o n 2018-10-02 PTT Ratio 0.9 0.8-1.2 ratio Normal 10-02-2018 [facility] (66877) Comment: Order Comment: Order added b y Discern Expert. Performed By: #### [id number] #### MARCUSShawn Wilcoxwunderloopcoxhealth[address] [place] [address] pt on 2018-10-02 INR Coag (PPP) [Relative 1.1 1.0-1.2 {INR} Normal 10-02 [facility] tem (58085) Comment: Result Comment: INR Recommen ded Therapeuptic Ranges: Prophylaxis/treatment of DVT and PE?2.0-3.0 Prevention of systemic embol ism?.2.0-3.0 Mechanical prosthetic values ?2.5-3.5 CRITICAL VALUES?.>4.0 Performed By: #### [id number] #### MARCUS [place] [address] [place] [address] PT Coag (PPP) [Time] 13.2 11.6-14.6 second(s) Normal 8 [facility] tem (75427) Comment: Performed By: #### [id number] #### MARCUS [address] [address] manual diff on 2017 Anisocytosis Ql (Bld) 2+ Normal 10-02-20 18 [facility] (03536) Comment: Order Comment: Order Added erma Aldana Expert. Performed By: #### [id number] #### MARCUS [address] [address] Band form neutrophils/100 WBC 6 0-1 High 10-02-2018 [facility] (d) System (00 000) Comment: Order Comment: Order Added erma Aldana Expert. Performed By: #### [id number] #### MARCUS Kenyono [address] [place] [address] Basophil Man 0 0-1 % Normal 10-02-2018 [facility] (25030) Comment: Order Comment: Order Added erma lAdana Expert. Performed By: #### [id number] #### MARCUS Kenyono [address] [place] [address] Eosinophils/100 WBC (Bld) 1 0-5 % Normal 09-17 [facility] (40117) Comment: Order Comment: Order Added erma Aldana Expert. Performed By: #### [id number] #### MARCUSShawn WilcoxUnited Health Serviceso [address] [place] [address] Lymphocytes/100 WBC (Bld) 37 14-48 % Normal 09-17 [facility] (00 000) Comment: Order Comment: Order Added b y Discern Expert. Performed By: #### [id number] #### MARCUS WilcoxHemo [address] [place] [address] [place] Man 3 0-0 % High 10-02-2018 [facility] (42003) Comment: Order Comment: Order Added b y Discern Expert. Performed By: #### [id number] #### MARCUS WilcoxHemo [address] [place] [address] Monocyte Man 10 1-11 % Normal 10-02-2018 [facility] (87353) Comment: Order Comment: Order Added b y Discern Expert. Performed By: #### [id number] #### MARCUSShawn WilcoxHemo [address] [place] [address] Poikilocytosis 1+ Normal 10-02-2018 [facility] (65492) Comment: Order Comment: Order Added b y Discern Expert. Performed By: #### [id number] #### MARCUSShawn WilcoxHemo [facility] [place] 4577005 Polychromasia 1+ Normal 10-02-2018 [facility] (35139) Comment: Order Comment: Order Added b y Discern Expert. Performed By: #### [id number] #### MARCUSShawn Wilcoxwunderloopo [facility] [place] 4577005 RBC morphology finding SEE MORPHOLOGY Normal [facility] tem (66472) Comment: Order Comment: Order Added b y Discern Expert. Performed By: #### [id number] #### MARCUSShawn WilcoxHemo [address] [place] [address] Segs Man 43 37-75 % Normal 10-02-2018 [facility] (76448) Comment: Order Comment: Order Added b y Discern Expert. Performed By: #### [id number] #### MARCUSShawn Wilcoxwunderloopo [facility] [place] [address] magnesium on 2017-10 2-16 Magnesium [Mass/Vol] 1.9 1.6-2.4 mg/dL Normal 8 [facility] (00 000) Comment: Performed By: #### [id number] #### MARCUSShawn WilcoxHemo [address] [place] [address] egfr on 2018-10-02 GFR/1.73 sq M predicted 53 mL/min/1.73 m2 Normal 1 12-03-2017 [facility] among non-blacks [facility] (00417) (S/P/Bld) [Vol rate/Area] Comment: Order Comment: Order added b y Katya Expert. Performed By: #### [id number] #### MARCUS JeriHemo [address] [place] [address] GFR/1.73 sq M predicted 44 mL/min/1.73 m2 Normal 1 12-03-2017 [facility] among non-blacks [facility] (80205) (S/P/Bld) [Vol rate/Area] Comment: Order Comment: Order added b dl Aldana Expert. Performed By: #### [id number] #### MARCUS JeriHemo [facility] [place] [address] cbc w/ auto diff on 2018-10-02 Erythrocyte distribution 13.1 11.5-14.5 % Normal 10-02 [facility] width (RBC) [Ratio] [facility] System (80837) Comment: Performed By: #### [id number] #### MARCUS RemHemo [address] [place] [address] Hematocrit (Bld) [Volume 40.9 36.0-48.0 % Normal 10-02 [facility] fraction] Health Sys tem (46086) Comment: Performed By: #### [id number] #### MARCUS JeriHemo [address] [place] [address] Hemoglobin (Bld) 13.7 12.0-16.0 G/DL Normal 10-02-2018 [facility] [Mass/Vol] Health Sy stem (33033) Comment: Performed By: #### [id number] #### MARCUS RemHemo [address] [place] [address] MCH (RBC) [Entitic mass] 31.0 27.0-31.0 pg Normal 10-02 [facility] (00 000) Comment: Performed By: #### [id number] #### MARCUS RemHemo [address] [place] [address] MCHC (RBC) [Mass/Vol] 33.7 33.0-37.0 G/DL Normal 10-02-20 [facility] (00 000) Comment: Performed By: #### [id number] #### MARCUS WilcoxHemo [facility] [place] [address] MCV (RBC) [Entitic vol] 92.1 78.0-100.0 fL Normal 10-02 [facility] tem (41022) Comment: Performed By: #### [id number] #### MARCUS WilcoxHemo [facility] [place] [address] Platelet mean volume 8.4 7.4-11.0 fL Normal [facility] (Bld) [Entitic vol] System (86456) Comment: Performed By: #### [id number] #### MARCUS WilcoxHemo [facility] [place] [address] Platelets (Bld) [#/Vol] 82 130-400 E3/mcL Low 2017 [facility] (00 000) Comment: Performed By: #### [id number] #### MARCUSShawn WilcoxHemo [address] [place] [address] RBC (Bld) [#/Vol] 4.44 3.90-5.40 E6/mcL Normal 10-02-2018 [facility] (00 000) Comment: Performed By: #### [id number] #### MARCUSShawn WilcoxHemo [address] [place] [address] WBC (Bld) [#/Vol] 5.3 3.6-11.0 E3/mcL Normal 10-02-2018 [facility] (00 000) Comment: Performed By: #### [id number] #### MARCUSShawn WilcoxHemo [address] [place] [address] bmp on 2018-10-02 Anion gap [Moles/Vol] 9 10-20 mEq/L Low 10-02-20 18 [facility] (06428) Comment: Performed By: #### [id number] #### [facility] [address] [place] [address] Calcium [Mass/Vol] 8.4 8.6-10.3 mg/dL Low 10-02-2018 [facility] (09566) Comment: Performed By: #### [id number] #### MARCUS WilcoxHemo [address] [place] [address] Chloride [Moles/Vol] 111 98-107 mEq/L High 8 [facility] (00 000) Comment: Performed By: #### [id number] #### MARCUS RemHemo [address] [place] [address] CO2 [Moles/Vol] 22.0 21.0-32.0 mEq/L Normal 10-02-2018 [facility] ( 000) Comment: Performed By: #### [id number] #### MARCUS JeriHemo [facility] [place] [address] Creatinine [Mass/Vol] 1.3 0.5-1.1 mg/dL High 10-02-20 18 [facility] (00 000) Comment: Performed By: #### [id number] #### MARCUS RemHemo [facility] [place] [address] Glucose [Mass/Vol] 88 70-99 mg/dL Normal 10-02-2018 [facility] (98936) Comment: Performed By: #### [id number] #### MARCUS JeriHemo [facility] [place] [address] Potassium [Moles/Vol] 4.2 3.5-5.3 mEq/L Normal 10-02-20 18 [facility] (00 000) Comment: Performed By: #### [id number] #### MARCUS RemHemo [facility] [place] [address] Sodium [Moles/Vol] 138 136-145 mEq/L Normal 10-02-2018 [facility] ( 000) Comment: Performed By: #### [id number] #### MARCUS RemHemo [address] [place] [address] Urea nitrogen [Mass/Vol] 16 6-23 mg/dL Normal 10-02 [facility] (00 000) Comment: Performed By: #### [id number] #### MARCUS RemHemo [facility] [place] [address] Urea nitrogen/Creatinine 12.3 5.4-30.0 ratio Normal 10-02 [facility] [Mass ratio] [facility] (01036) Comment: Performed By: #### [id number] #### MARCUS Kenyoncorky [address] [place] [address] .manual abs on 2017 Basophil Abs Man 0.0 0.0-0.2 10x3/ Normal 10-02-2018 [facility] (17991) Comment: Order Comment: Order Added erma Aldana Expert. Performed By: #### [id number] #### MARCUSShawn Luong [address] [place] [address] Eos Abs Man 0.1 0.0-0.5 10x3/ Normal 10-02-2018 [facility] (07230) Comment: Order Comment: Order Added erma Aldana Expert. Performed By: #### [id number] #### MARCUS Ag [address] [place] [address] Lymph Abs Man 2.0 1.2-3.4 10x3/ Normal 10-02-2018 [facility] (93530) Comment: Order Comment: Order Added erma Aldana Expert. Performed By: #### [id number] #### MARCUS WilcoxRahul [address] [place] [address] [place] Abs Man 0.5 0.0-0.7 10x3/ Normal 10-02-2018 [facility] (09719) Comment: Order Comment: Order Added erma Aldana Expert. Performed By: #### [id number] #### MARCUSShawn Luong [address] [place] [address] Segs Abs Man 2.3 1.4-6.5 10x3/ Normal 10-02-2018 [facility] (49127) Comment: Order Comment: Order Added erma Aldana Expert. Performed By: #### [id number] #### MARCUSShawn Luong [facility] [place] [address] c urine on C Urine Final Report: Moderate Normal 018 [facility] Normal skin joe isolated System (70670) Comment: Performed By: #### [id number] #### MARCUS WilcoxHemo [address] [place] [address] ua complete on 2017 Color (U) Yellow Yellow Normal 09-22-2018 [facility] (15753) Comment: Performed By: #### [id number] #### MARCUS WilcoxHemo [address] [place] [address] Glucose (U) [Mass/Vol] Negative Negative mg/dL Normal 018 [facility] Sys tem (72813) Comment: Performed By: #### [id number] #### MARCUS WilcoxHemo [address] [place] [address] Ketones Ql (U) Negative Negative Normal 09-22-2018 [facility] (37219) Comment: Performed By: #### [id number] #### MARCUS WilcoxHemo [facility] [place] [address] RBC (U) [#/Vol] 20-50 0-3 Abnormal 09-22-2018 [facility] (00739) Comment: Performed By: #### [id number] #### MARCUS WilcoxHemo [facility] [place] [address] UA Blood Negative Negative Normal 09-22-2018 [facility] (84044) Comment: Performed By: #### [id number] #### MARCUS WilcoxHemo [address] [place] [address] UA Bacteria 2+ None /HPF Abnormal 09-22-2018 [facility] (32022) Comment: Performed By: #### [id number] #### MARCUSShawn WilcoxHemo [address] [place] [address] UA Clarity Cloudy Clear Abnormal 09-22-2018 [facility] (18043) Comment: Performed By: #### [id number] #### MARCUS RemHemo [address] [place] [address] UA Leuk Est 3+ Negative Abnormal 09-22-2018 [facility] (09477) Comment: Performed By: #### [id number] #### MARCUSShawn WilcoxHemo [address] [place] [address] UA Mucous Trace Trace Abnormal 09-22-2018 [facility] (03113) Comment: Performed By: #### [id number] #### MARCUS WilcoxHemo [address] [place] [address] UA Nitrite Negative Negative Normal 09-22-2018 [facility] (73755) Comment: Performed By: #### [id number] #### MARCUS Kenyono [facility] [place] [address] UA pH 7.0 4.6-8.0 Normal 09-22-2018 [facility] (45394) Comment: Performed By: #### [id number] #### MARCUS WilcoxHemo [facility] [place] [address] UA Protein Negative Negative Normal 09-22-2018 [facility] (85095) Comment: Performed By: #### [id number] #### MARCUS WilcoxHemo [facility] [place] [address] UA Spec Grav 1.014 1.003-1.030 Normal 09-22-2018 [facility] (82678) Comment: Performed By: #### [id number] #### MARCUS WilcoxHemo [address] [place] [address] UA Squam Epithelial >30 0-5 Abnormal 09-22-2018 [facility] (30448) Comment: Performed By: #### [id number] #### MARCUS WilcoxHemo [address] [place] [address] UA Urobilinogen Negative Normal 09-22-2018 [facility] (11640) Comment: Result Comment: Due to a man ufacturing issue, low positive urobilinogen results may be fasely positi ve. Correlate with urine bilirubin and additional clinical/laborato ry findings to assess the risk of hemolytic anemia or liver disease. If clinically indicated, repeat testing with an alternate method is availabl e by contacting the laboratory within 24 hours. Performed By: #### [id number] #### MARCUS WilcoxHemo [facility] [place] [address] UA WBC 20-50 0-5 Abnormal 09-22-2018 [facility] (50285) Comment: Performed By: #### [id number] #### MARCUS WilcoxHemo [facility] [place] [address] Urobilinogen Qn (U) Negative Negative Normal 09-22-2018 [facility] (00 000) Comment: Performed By: #### [id number] #### MARCUS Kenyono [facility] [place] [address] u bhcg qlt on 09-22 HCG.beta subunit Qn Neg Neg m[IU]/mL Normal 09-22-2018 [facility] (00 000) Comment: Performed By: #### [id number] #### MARCUS Kenyono [facility] [place] [address] lipase level on 201 05-29-06 Lipase Lvl 44 9-82 Int._Unit/L Normal 09-22-2018 [facility] (25128) Comment: Performed By: #### [id number] #### MARCUS Kenyono [facility] [place] [address] hep func panel on 2 Albumin [Mass/Vol] 4.7 3.4-5.0 gm/dL Normal 09-22-2018 [facility] (00 000) Comment: Performed By: #### [id number] #### MARCUS Kostaso [address] [place] [address] 04175 Albumin/Globulin [Mass 1.7 1.1-1.9 ratio Normal [address] [place] [address]] Health Sys tem (80504) Comment: Performed By: #### [id number] #### MARCUS Kostaso [facility] [place] [address] Alk Phos 67 33-110 Int._Unit/L Normal 09-22-2018 [facility] (23080) Comment: Performed By: #### [id number] #### MARCUS JeriHemo [facility] [place] [address] ALT [Catalytic 19 7-45 Int._Unit/L Normal 09-22-2018 [facility] activity/Vol] Health System (52255) Comment: Performed By: #### [id number] #### MARCUS JeriHemo [address] [place] [address] AST [Catalytic 31 9-39 Int._Unit/L Normal 09-22-2018 [facility] activity/Vol] Health System (16234) Comment: Performed By: #### [id number] #### MARCUS WilcoxHemo [address] [place] [address] Bili Direct 0.12 0.00-0.30 mg/dL Normal 09-22-2018 [facility] (68238) Comment: Performed By: #### [id number] #### MARCUS WilcoxHemo [address] [place] [address] Bili Indirect 0.53 mg/dL Normal 09-22-2018 [facility] (51879) Comment: Result Comment: No establish ed ranges available for the indirect bilirubin Performed By: #### [id number] #### MARCUS WilcoxHemo [address] [place] [address] Bili Total 0.65 0.00-1.20 mg/dL Normal 09-22-2018 [facility] (81047) Comment: Performed By: #### [id number] #### MARCUS WilcoxHemo [address] [place] [address] Globulin (S) [Mass/Vol] 3.0 2.0-4.0 G/DL Normal 2017 [facility] (00 000) Comment: Performed By: #### [id number] #### MARCUS WilcoxHemo [address] [place] [address] Protein [Mass/Vol] 7.4 6.4-8.2 gm/dL Normal 09-22-2018 [facility] (00 000) Comment: Performed By: #### [id number] #### MARCUS WilcoxHemo [address] [place] [address] egfr on 2018-09-22 GFR/1.73 sq M predicted 51 mL/min/1.73 m2 Normal 1 11-23-2017 [facility] among non-blacks [facility] (63684) (S/P/Bld) [Vol rate/Area] Comment: Order Comment: Order Added b y Discern Expert. Performed By: #### [id number] #### MARCUS WilcoxHemo [address] [place] [address] GFR/1.73 sq M predicted 42 mL/min/1.73 m2 Normal 1 11-23-2017 [facility] among non-blacks [facility] (35162) (S/P/Bld) [Vol rate/Area] Comment: Order Comment: Order Added erma Aldana Expert. Performed By: #### [id number] #### MARCUS Ag [address] [place] [address] ct abdomen/pelvis w/o contrast on 2018-09-22 CT Abdomen/Pelvis w/o Exam Date/Time: Normal [employer] Contrast 09/22/2018 18:11 EST [facility] Reason for Exam: Sys tem (16110) Abdominal Pain;Other (please specify) Report STUDY: CT Abdomen/Pelvis w/o Contrast; 09/22/2018 6:11 pm INDICATION: Other (please specify). COMPARISON: CT dated 05/19/2018 ACCESSION NUMBER(S): [id number] ORDERING CLINICIAN: Shilpa Douglas TECHNIQUE: CT of [...] Erythrocyte distribution 13.6 11.5-14.5 % Normal 09-22 [facility] width (RBC) [Ratio] Health System (62143) Comment: Performed By: #### [id number] # ### MARCUS WilcoxHemo [address] [place] [address] Hematocrit (Bld) [Volume 50.0 36.0-48.0 % High 09-22 [facility] fraction] System (00 000) Comment: Performed By: #### [id number] # ### MARCUS WilcoxHemo [facility] [place] [address] Hemoglobin (Bld) 16.9 12.0-16.0 G/DL High 09-22-2018 [facility] [Mass/Vol] [facility] Sy stem (03785) Comment: Performed By: #### [id number] # ### MARCUS WilcoxHemo [facility] [place] [address] MCH (RBC) [Entitic mass] 31.0 27.0-31.0 pg Normal 09-22 [facility] (00 000) Comment: Performed By: #### [id number] # ### MARCUS RemHemo [facility] [place] [address] MCHC (RBC) [Mass/Vol] 33.8 33.0-37.0 G/DL Normal 09-22-20 18 [facility] (00 000) Comment: Performed By: #### [id number] # ### MARCUSShawn WilcoxHemo [facility] [place] [address] MCV (RBC) [Entitic vol] 91.7 78.0-100.0 fL Normal 09-22 [facility] Sys tem (97652) Comment: Performed By: #### [id number] # ### MARCUS RemHemo [address] [place] [address] Platelet mean volume 8.1 7.4-11.0 fL Normal 8 [facility] (Bld) [Entitic vol] System (90328) Comment: Performed By: #### [id number] # ### MARCUS RemHemo [facility] [place] [address] Platelets (Bld) [#/Vol] 123 130-400 E3/mcL Low 2017 [facility] () Comment: Performed By: #### [id number] # ### MARCUS WilcoxHemo [address] [place] [address] RBC (Bld) [#/Vol] 5.45 3.90-5.40 E6/mcL High 09-22-2018 [facility] () Comment: Performed By: #### [id number] # ### MARCUS WilcoxHemo [facility] [place] [address] WBC (Bld) [#/Vol] 6.6 3.6-11.0 E3/mcL Normal 09-22-2018 [facility] () Comment: Performed By: #### [id number] # ### MARCUS WilcoxHemo [facility] [place] [address] bmp on 2018-09-22 Anion gap [Moles/Vol] 12 10-20 mEq/L Normal 09-22-20 [facility] () Comment: Performed By: #### [id number] #### MARCUS WilcoxHemo [facility] [place] [address] Calcium [Mass/Vol] 9.4 8.6-10.3 mg/dL Normal 09-22-2018 [facility] () Comment: Performed By: #### [id number] #### MARCUS WilcoxHemo [facility] [place] [address] Chloride [Moles/Vol] 110 98-107 mEq/L High [facility] () Comment: Performed By: #### [id number] #### MARCUS WilcoxHemo [address] [place] [address] CO2 [Moles/Vol] 22.0 21.0-32.0 mEq/L Normal 09-22-2018 [facility] () Comment: Performed By: #### [id number] #### MARCUS RemHemo [address] [place] [address] Creatinine [Mass/Vol] 1.4 0.5-1.1 mg/dL High 09-22-20 [facility] () Comment: Performed By: #### [id number] #### MARCUS WilcoxHemo [address] [place] [address] Glucose [Mass/Vol] 93 70-99 mg/dL Normal 09-22-2018 [facility] (26766) Comment: Performed By: #### [id number] #### MARCUS Kenyono [address] [place] [address] Potassium [Moles/Vol] 4.7 3.5-5.3 mEq/L Normal 09-22-20 18 [facility] (00 000) Comment: Performed By: #### [id number] #### MARCUS WilcoxUnited Health Serviceso [address] [place] [address] Sodium [Moles/Vol] 139 136-145 mEq/L Normal 09-22-2018 [facility] (00 000) Comment: Performed By: #### [id number] #### MARCUS Kenyono [address] [place] [address] Urea nitrogen [Mass/Vol] 15 6-23 mg/dL Normal 09-22 [facility] (00 000) Comment: Performed By: #### [id number] #### MARCUS Kenyono [address] [place] [address] Urea nitrogen/Creatinine 10.7 5.4-30.0 ratio Normal 09-22 [facility] [Mass ratio] [facility] (24063) Comment: Performed By: #### [id number] #### MARCUS Kenyon[address] [address] auto diff on 2017-10 2 Basophils (Bld) [#/Vol] 0.0 0.0-0.2 E3/mcL Normal 2017 [facility] Sys tem (73101) Comment: Order Comment: Order Added b y Discern Expert. Performed By: #### [id number] #### MARCUSShawn Kenyono [address] [place] [address] Basophils/100 WBC (Bld) 0.4 0.0-2.0 % Normal 2017 [facility] (00 000) Comment: Order Comment: Order Added b y Discern Expert. Performed By: #### [id number] #### MARCUS RemHemo [address] [place] [address] [place] [address] Eos Absolute 0.1 0.0-0.7 E3/mcL Normal 09-22-2018 [facility] (29576) Comment: Order Comment: Order Added rema Aldana Expert. Performed By: #### [id number] #### MARCUS WilcoxHemo [address] [place] [address] Eosinophils/100 WBC (Bld) 1.6 0.0-11.0 % Normal [facility] (00 000) Comment: Order Comment: Order Added erma Aldana Expert. Performed By: #### [id number] #### MARCUS RemHemo [address] [place] [address] Lymphocytes (Bld) [#/Vol] 2.0 1.2-3.4 E3/mcL Normal [facility] (05695) Comment: Order Comment: Order Added erma Aldana Expert. Performed By: #### [id number] #### MARCUS WilcoxHemo [address] [place] [address] Lymphocytes/100 WBC (Bld) 30.2 20.0-55.0 % Normal [facility] (82149) Comment: Order Comment: Order Added erma Aldana Expert. Performed By: #### [id number] #### MARCUS RemHemo [address] [place] [address] [place] Absolute 0.6 0.0-0.7 E3/mcL Normal 09-22-2018 [facility] (48794) Comment: Order Comment: Order Added erma Aldana Expert. Performed By: #### [id number] #### MARCUS RemHemo [address] [place] [address] Monocytes/100 WBC (Bld) 9.0 0.0-10.0 % Normal 2017 [facility] (00 000) Comment: Order Comment: Order Added erma Aldana Expert. Performed By: #### [id number] #### MARCUS RemHemo [address] [place] [address] Neutro Absolute 3.9 1.4-6.5 E3/mcL Normal 09-22-2018 [facility] (75449) Comment: Order Comment: Order Added erma Aldana Expert. Performed By: #### [id number] #### MARCUS RemHemo [address] [place] [address] Neutro Auto 58.8 37.0-75.0 % Normal 09-22-2018 [facility] (55343) Comment: Order Comment: Order Added erma Aldana Expert. Performed By: #### [id number] #### MARCUS RemHemo [address] [place] [address] c urine on C Urine Final Report: Few Mixed skin Normal 1 [facility] (49824) Comment: Performed By: #### [id number] # ### MARCUS Microbiology Subsection [address] [place] [address] ua complete on 2017 Color (U) Yellow Yellow Normal 08-15-2018 [facility] (20287) Comment: Order Comment: Straight Cath as needed Performed By: #### [id number] #### MARCUS Urinalysis Automated Suggs bsection [address] [place] [address] Glucose (U) [Mass/Vol] 1+ Negative Abnormal 018 [facility] (00 000) Comment: Order Comment: Straight Cath as needed Performed By: #### [id number] #### MARCUS Urinalysis Automated [employer] bsection [address] [place] [address] Ketones Ql (U) Negative Negative Normal 08-15-2018 [facility] (97034) Comment: Order Comment: Straight Cath as needed Performed By: #### [id number] #### MARCUS Urinalysis Automated [employer] bsection [address] [place] [address] RBC (U) [#/Vol] 0-3 0-3 Normal 08-15-2018 [facility] (99823) Comment: Order Comment: Straight Cath as needed Performed By: #### [id number] #### MARCUS Urinalysis Automated [employer] bsection [address] [place] [address] UA Blood Negative Negative Normal 08-15-2018 [facility] (49239) Comment: Order Comment: Straight Cath as needed Performed By: #### [id number] #### MARCUS Urinalysis Automated [employer] bsection [address] [place] [address] UA Bacteria Trace None Abnormal 08-15-2018 [facility] (64324) Comment: Order Comment: Straight Cath as needed Performed By: #### [id number] #### MARCUS Urinalysis Automated [employer] bsection [address] [place] [address] UA Clarity SltCloudy Clear Abnormal 08-15-2018 [facility] (24142) Comment: Order Comment: Straight Cath as needed Performed By: #### [id number] #### MARCUS Urinalysis Automated [employer] bsection [address] [place] [address] UA Hyal Cast 0-2 0-2 Normal 08-15-2018 [facility] (50792) Comment: Order Comment: Straight Cath as needed Performed By: #### [id number] #### MARCUS Urinalysis Automated [employer] bsection [address] [place] [address] UA Leuk Est 1+ Negative Abnormal 08-15-2018 [facility] (30169) Comment: Order Comment: Straight Cath as needed Performed By: #### [id number] #### MARCUS Urinalysis Automated [employer] bsection [address] [place] [address] UA Mucous Trace Trace Abnormal 08-15-2018 [facility] (86175) Comment: Order Comment: Straight Cath as needed Performed By: #### [id number] #### MARCUS Urinalysis Automated [employer] bsection [address] [place] [address] UA Nitrite Negative Negative Normal 08-15-2018 [facility] (70926) Comment: Order Comment: Straight Cath as needed Performed By: #### [id number] #### MARCUS Urinalysis Automated [employer] bsection [address] [place] [address] UA pH 7.0 4.6-8.0 Normal 08-15-2018 [facility] (99353) Comment: Order Comment: Straight Cath as needed Performed By: #### [id number] #### MARCUS Urinalysis Automated [employer] bsection [address] [place] [address] UA Protein Negative Negative Normal 08-15-2018 [facility] (78136) Comment: Order Comment: Straight Cath as needed Performed By: #### [id number] #### MARCUS Urinalysis Automated [employer] bsection [address] [place] [address] UA Spec Grav 1.012 1.003-1.030 Normal 08-15-2018 [facility] (26842) Comment: Order Comment: Straight Cath as needed Performed By: #### [id number] #### MARCUS Urinalysis Automated [employer] bsection [address] [place] [address] UA Squam Epithelial 5-10 0-5 Abnormal 08-15-2018 [facility] (85050) Comment: Order Comment: Straight Cath as needed Performed By: #### [id number] #### MARCUS Urinalysis Automated [employer] bsection [address] [place] [address] UA Urobilinogen Negative Normal 08-15-2018 [facility] (74148) Comment: Order Comment: Straight Cath as needed Performed By: #### [id number] #### MARCUS Urinalysis Automated [employer] bsection [address] [place] [address] UA WBC 10-20 0-5 Abnormal 08-15-2018 [facility] (29844) Comment: Order Comment: Straight Cath as needed Performed By: #### [id number] #### MARCUS Urinalysis Automated [employer] bsection [address] [place] [address] Urobilinogen Qn (U) Negative Negative Normal 08-15-2018 [facility] (00 000) Comment: Order Comment: Straight Cath as needed Performed By: #### [id number] #### MARCUS Urinalysis Automated [employer] bsection [address] [place] [address] zzplt morph on 2017 Platelet morphology finding NORMAL Normal [facility] (d) System (00 000) Comment: Performed By: #### [id number] #### MARCUS RemHemo [address] [place] [address] Platelets (d) [#/Vol] DECREASED Normal 2017 [facility] (00 000) Comment: Performed By: #### [id number] #### [place] [id number] tsh on 2018-08-14 TSH Qn 2.16 0.30-5.60 mcIU/mL Normal 08-14-2018 [facility] (13255) Comment: Order Comment: With T4fr Ref kurt Performed By: #### [id number] # ### MARCUSShawn Wilcox[place] [id number] morph on 2018-08-14 Anisocytosis Ql (Bld) 1+ Normal 08-14-20 18 [facility] (28168) Comment: Order Comment: Order Added b y Discern Expert. Performed By: #### [id number] #### [place]US [place] [id number] RBC morphology finding SEE MORPHOLOGY Normal [facility] Health Sys tem (81655) Comment: Order Comment: Order Added b y Discern Expert. Performed By: #### [id number] #### MARCUS [place] [id number] egfr on 2018-08-14 GFR/1.73 sq M predicted 53 mL/min/1.73 m2 Normal 1 [facility] among non-blacks [facility] (35557) (S/P/Bld) [Vol rate/Area] Comment: Order Comment: Order added b y Discern Expert. Performed By: #### [id number] #### MARCUSShawn [place] [id number] GFR/1.73 sq M predicted 44 mL/min/1.73 m2 Normal 1 [facility] among non-blacks [facility] (65050) (S/P/Bld) [Vol rate/Area] Comment: Order Comment: Order added b y Discern Expert. Performed By: #### [id number] #### MARCUSShawn [place] [id number] cbc w/ auto diff on 2018-08-14 Erythrocyte distribution 13.2 11.5-14.5 % Normal 08-14 [facility] width (RBC) [Ratio] Health System (46788) Comment: Performed By: #### [id number] # ### MARCUS WilcoxHemo [address] [place] [address] Hematocrit (Bld) [Volume 42.1 36.0-48.0 % Normal 08-14 [facility] Sys tem (31943) Comment: Performed By: #### [id number] # ### MARCUS WilcoxHemo [address] [place] [address] Hemoglobin (Bld) 14.1 12.0-16.0 G/DL Normal 08-14-2018 [facility] [Mass/Vol] Health Sy stem (66940) Comment: Performed By: #### [id number] # ### MARCUSShawn WilcoxHemo [facility] [place] [address] MCH (RBC) [Entitic mass] 30.8 27.0-31.0 pg Normal 08-14 [facility] (00 000) Comment: Performed By: #### [id number] # ### MARCUSShawn WilcoxHemo [address] [place] [address] MCHC (RBC) [Mass/Vol] 33.5 33.0-37.0 G/DL Normal 08-14-20 18 [facility] (00 000) Comment: Performed By: #### [id number] # ### MARCUSShawn WilcoxHemo [address] [place] [address] MCV (RBC) [Entitic vol] 91.7 78.0-100.0 fL Normal 08-14 [facility] Sys tem (96991) Comment: Performed By: #### [id number] # ### MARCUSShawn WilcoxHemo [address] [place] [address] Platelet mean volume 8.8 7.4-11.0 fL Normal 8 [facility] (Bld) [Entitic vol] System (89570) Comment: Performed By: #### [id number] # ### [facility]US [facility] [place] [address] Platelets (Bld) [#/Vol] 78 130-400 E3/mcL Low 2017 [facility] (00 000) Comment: Performed By: #### [id number] # ### MARCUS [facility] [place] [address] RBC (Bld) [#/Vol] 4.60 3.90-5.40 E6/mcL Normal 08-14-2018 [facility] () Comment: Performed By: #### [id number] # ### MARCUS RemHemo [address] [place] [address] WBC (Bld) [#/Vol] 4.2 3.6-11.0 E3/mcL Normal 08-14-2018 [facility] () Comment: Performed By: #### [id number] # ### MARCUS RemHemo [address] [place] [address] bmp on 2018-08-14 Anion gap [Moles/Vol] 13 10-20 mEq/L Normal 08-14-20 [facility] () Comment: Performed By: #### [id number] # ### MARCUS RemChem [address] [place] [address] Calcium [Mass/Vol] 8.3 8.6-10.3 mg/dL Low 08-14-2018 [facility] (13716) Comment: Performed By: #### [id number] # ### MARCUS RemChem [address] [place] [address] Chloride [Moles/Vol] 110 98-107 mEq/L High [facility] () Comment: Performed By: #### [id number] # ### MARCUS RemChem [address] [place] [address] CO2 [Moles/Vol] 21.0 21.0-32.0 mEq/L Normal 08-14-2018 [facility] () Comment: Performed By: #### [id number] # ### MARCUS RemChem [address] [place] [address] Creatinine [Mass/Vol] 1.3 0.6-1.3 mg/dL Normal 08-14-20 [facility] () Comment: Performed By: #### [id number] # ### MARCUS RemChem [address] [place] [address] Glucose [Mass/Vol] 122 70-99 mg/dL High 08-14-2018 [facility] (84244) Comment: Performed By: #### [id number] # ### MARCUS WilcoxChem [address] [place] [address] Potassium [Moles/Vol] 3.3 3.5-5.3 mEq/L Low 08-14-20 [facility] () Comment: Performed By: #### [id number] # ### MARCUSShawn WilcoxChem [facility] [place] [address] Sodium [Moles/Vol] 141 136-145 mEq/L Normal 08-14-2018 [facility] () Comment: Performed By: #### [id number] # ### MARCUS WilcoxChem [address] [place] [address] Urea nitrogen [Mass/Vol] 13 6-23 mg/dL Normal 08-14 [facility] () Comment: Performed By: #### [id number] # ### MARCUSShawn WilcoxChem [address] [place] [address] Urea nitrogen/Creatinine 10.0 5.4-30.0 ratio Normal 08-14 [facility] [Mass ratio] [facility] (89365) Comment: Performed By: #### [id number] # ### MARCUSShawn WilcoxChem [address] [place] [address] 24873 auto diff on 2017-10 Basophils (Bld) [#/Vol] 0.0 0.0-0.2 E3/mcL Normal 2017 [facility] Sys tem (22817) Comment: Order Comment: Order Added b y Discern Expert. Performed By: #### [id number] # ### MARCUS WilcoxHemo [address] [place] [address] Basophils/100 WBC (Bld) 0.7 0.0-2.0 % Normal 2017 [facility] () Comment: Order Comment: Order Added b y Discern Expert. Performed By: #### [id number] # ### MARCUS WilcoxHemo [facility] [place] [address] Eos Absolute 0.1 0.0-0.7 E3/mcL Normal 08-14-2018 [facility] ([id number]) Comment: Order Comment: Order Added b y Discern Expert. Performed By: #### [id number] # ### MARCUS RemHemo [address] [place] [address] Eosinophils/100 WBC (Bld) 2.2 0.0-11.0 % Normal 07-19 [facility] (00 000) Comment: Order Comment: Order Added b y Discern Expert. Performed By: #### [id number] # ### MARCUS RemHemo [address] [place] [address] Lymphocytes (Bld) [#/Vol] 1.4 1.2-3.4 E3/mcL Normal 07-19 [facility] tem (84528) Comment: Order Comment: Order Added b y Discern Expert. Performed By: #### [id number] # ### MARCUS WilcoxHemo [address] [place] [address] Lymphocytes/100 WBC (Bld) 32.5 20.0-55.0 % Normal 07-19 [facility] tem (18299) Comment: Order Comment: Order Added b y Discern Expert. Performed By: #### [id number] # ### MARCUS RemHemo [address] [place] [address] [place] Absolute 0.4 0.0-0.7 E3/mcL Normal 08-14-2018 [facility] (22127) Comment: Order Comment: Order Added b y Discern Expert. Performed By: #### [id number] # ### MARCUS WilcoxHemo [address] [place] [address] Monocytes/100 WBC (Bld) 9.7 0.0-10.0 % Normal 2017 [facility] (00 000) Comment: Order Comment: Order Added b y Discern Expert. Performed By: #### [id number] # ### MARCUS RemHemo [address] [place] [address] Neutro Absolute 2.3 1.4-6.5 E3/mcL Normal 08-14-2018 [facility] (13109) Comment: Order Comment: Order Added b y Discern Expert. Performed By: #### [id number] # ### [facility] RemHemo [address] [place] [address] Neutro Auto 54.9 37.0-75.0 % Normal 08-14-2018 [facility] (46164) Comment: Order Comment: Order Added b y Katya Expert. Performed By: #### [id number] # ### MARCUS WilcoxHemcorky [facility] [place] [address] culture, urine on Culture, Urine Test Name: Culture, Urine Normal 06-16-2018 [facility] Culture Status: [facility] Culture Report: No significant growth. (72493) Micro Source: Urine - clean catch Comment: Performed By: #### GLUX #### Unless otherwise noted, all testing performed by [facility] l [address] [place], [place] [address] CLIA: [id number] Twisting Machine Operator: Ismael vines M.D. No panel information on 2018-06-16 Bilirubin Ql (U) Negative Negative Invalid 06-16-2018 [facility] Interpretation (4321 5) Code Glucose Ql (U) Negative Normal, Invalid 06-16-2018 [facility] Negative Interpretation (4321 5) mg/dL Code Hemoglobin Test Large Negative Abnormal 06-16-2018 [facility] strip Ql (U) (64636) Interpretation and Abnormal Invalid 06-16-2018 [facility] review of Interpretation (4321 5) laboratory results Code Ketones Ql (U) Negative Negative Invalid 06-16-2018 [facility] mg/dL Interpretation (4321 5) Code Leukocyte esterase Small Negative Abnormal 06-16-2018 [facility] Test strip Ql (U) (4 3215) Nitrite Test strip Negative Negative Invalid 06-16-2018 [facility] Ql (U) Interpretation (4321 5) Code pH Test strip (U) 7.5 OTH - OTH [pH] Abnormal 06-16-2018 [facility] (00852) Protein Test strip Trace Negative Abnormal 06-16-2018 [facility] Ql (U) mg/dL (41552) Specific gravity 1.020 OTH - OTH Invalid [facility]-16-[facility] (63326) (U) Code Urobilinogen Test 0.2 <2.0, 0.2, mg/d Invalid 06-16-2018 [facility] strip Qn (U) Normal, L Interpretation (4 3215) Negative, Code 1.0, 2.0, <1.0 cur on 2018-05-15 CUR . MICRO - MicrobiologyPROCEDURE: Normal 05-15-2018 [facility] Urine Culture [*1] ACCESSION: [facility] ([place]) (50312) [id number]: Urine, Straight BODY SITE: CatherizedCOLLECTED DATE/TIME: 05/13/2018 22:15 EDT RECEIVED DATE/TIME: 05/14/2018 17:17 EDTSTART DATE/TIME: 05/14/2018 17:17 EDT FREE TEXT SOURCE:PRELIMINARY REPORTSPreliminary Report []Verified Date/Time/Personnel: 05/15/2018 14:09 EDTCulture results pending.Performing Locations*1: This test was performed at: [facility], [address] [place] [address], [address] [place] [address] Comment: Performed By: #### CBC, ADIF F, ANEU ####[place] [address]#### L IP, CMP, GFR ####[place] [address] xr abdomen complete w/decub/erect on 2018-05-14 XR ABDOMEN COMPLETE ORIGINALSupine and Normal 0 05-14-2018 [facility] W/DECUB/ERECT upright views of the [facility] ([place]) abdomen HISTORY: (00 000) Abdominal pain COMPARISON: [...] Summary Documents Normal 04-18 [facility] ([place]) (30576) [facility] edu on Pat Edu Normal 05-14-2018 [facility] ([place]) (81294) [facility] note on 2018-05-14 [facility] Note Normal 0 05-14-2018 [facility] ([place]) (18922) lip on 2018-05-14 Lipase Level 250 73-393 U/L Normal 05-14-2018 [facility] (36189) Comment: Performed By: #### CBC, ADIF F, ANEU ####[place] [address]#### L IP, CMP, GFR ####[place] [address] cmp on 2018-05-14 Alanine aminotransferase (ALT) 41 10-35 U/L High 05-14-2018 [facility] ([place]) (0000 0) Comment: Performed By: #### CBC, ADIF F, ANEU ####[place] [id number]#### L IP, CMP, GFR ####[place] [address] Albumin 3.4 3.5-5.0 G/dL Low 05-14-2018 [facility] ([place]) (31181) Comment: Performed By: #### CBC, ADIF F, ANEU ####[place] [address]#### L IP, CMP, GFR ####[place] [address] Albumin/Globulin Ratio 1.2 1.1-2.5 ratio Normal 018 [facility] ([place]) (0000 0) Comment: Performed By: #### CBC, ADIF F, ANEU ####[place] [id number]#### L IP, CMP, GFR ####[place] [address] Alk Phos 56 40-135 U/L Normal 05-14-2018 [facility] ([place]) (17197) Comment: Performed By: #### CBC, ADIF F, ANEU ####[place] [address]#### L IP, CMP, GFR ####[place] [address] Aspartate aminotransferase 42 10-40 U/L High [facility] ([facility]) ([place]) (0000 0) Comment: Performed By: #### CBC, ADIF F, ANEU ####[place] [address]#### L IP, CMP, GFR ####[place] [address] Bili Total 0.5 0.2-1.0 mg/dL Normal 05-14-2018 [facility] ([place]) (61998) Comment: Performed By: #### CBC, ADIF F, ANEU ####[place] [address]#### L IP, CMP, GFR ####[place] [address] BUN/Creatinine Ratio 14 7-27 ratio Normal 8 [facility] ([place]) (19874) Comment: Performed By: #### CBC, ADIF F, ANEU ####[place] [address]#### L IP, CMP, GFR ####[place] [address] Calcium 8.0 8.4-10.2 mg/dL Low 05-14-2018 [facility] ([place]) (55383) Comment: Performed By: #### CBC, ADIF F, ANEU ####[place] [address]#### L IP, CMP, GFR ####[place] [address] [place] [address] Chloride 104 98-107 mmol/L Normal 05-14-2018 [facility] ([place]) (57026) Comment: Performed By: #### CBC, ADIF F, ANEU ####[address] [place], [place] [address]#### L IP, CMP, GFR ####[place] [address] CO2 23 22-29 mmol/L Normal 05-14-2018 [facility] ([place]) (79804) Comment: Performed By: #### CBC, ADIF F, ANEU ####[address] [place] [address]#### L IP, CMP, GFR ####[place] [address] Creatinine 1.28 0.55-1.02 mg/dL High 05-14-2018 [facility] ([place]) (04481) Comment: Performed By: #### CBC, ADIF F, ANEU ####[address] [place] [address]#### L IP, CMP, GFR ####[place] [address] Electrolyte Balance 9.0 mEq/L Normal 05-14-2018 [facility] ([place]) (47675) Comment: Performed By: #### CBC, ADIF F, ANEU ####[address] [place] [place] [id number]#### L IP, CMP, GFR ####[place] [address] Globulin 2.9 G/dL Normal 05-14-2018 [facility] ([place]) (27264) Comment: Performed By: #### CBC, ADIF F, ANEU ####[address] [place] [id number]#### L IP, CMP, GFR ####[place] [address] Glucose mass conc 90 70-105 mg/dL Normal 05-14-2018 [facility] ([place]) (82067) Comment: Performed By: #### CBC, ADIF F, ANEU ####[address] [place], [place] [address]#### L IP, CMP, GFR ####[address] [place] [address] [address] Potassium molar conc 4.6 3.5-5.1 mmol/L Normal 8 [facility] ([place]) (0000 0) Comment: Performed By: #### CBC, ADIF F, ANEU ####[address] [id number]#### L IP, CMP, GFR ####[place] [address] Protein 6.3 6.4-8.2 G/dL Low 05-14-2018 [facility] ([place]) (21295) Comment: Performed By: #### CBC, ADIF F, ANEU ####[address] [place] [id number]#### L IP, CMP, GFR ####[place] [address] Sodium 136 136-145 mmol/L Normal 05-14-2018 [facility] ([place]) (71625) Comment: Performed By: #### CBC, ADIF F, ANEU ####[place] [id number]#### L IP, CMP, GFR ####[address] [address] Urea nitrogen 18 7-18 mg/dL Normal 05-14-2018 [facility] ([place]) (90363) Comment: Performed By: #### CBC, ADIF F, ANEU ####[address] [place] [id number]#### L IP, CMP, GFR ####[address] [place] [address] [address] .gfr on 2018-05-14 GFR Non- 45 ml/min/1.73sqm Normal 05-14-2018 [facility] ([place]) (23587) Comment: Result Comment: GFR Populati on mean [...] #### CBC, ADIF F, ANEU ####[address] [place], [place] [address]#### L IP, CMP, GFR ####[place] [address] [place] [address] GFR 55 ml/min/1.73sqm Normal - [facility] ([place]) (0000 0) Comment: Result Comment: GFR Populati [...] #### CBC, ADIF F, ANEU ####[address] [place], [place] [address]#### L IP, CMP, GFR ####[place] [address] [place] [address] ua on 2018-05-13 UA Appear Slightly Cloudy Clear Invalid Interpretation 0 05-13-2018 [facility] ([place]) (99865) Comment: Performed By: #### UA, PREGU , UAMICAO ####[address] [place], [place] [address] UA Blood Negative Negative Normal 05-13-2018 [facility] ([place]) (08034) Comment: Performed By: #### UA, PREGU , UAMICAO ####[address] [place], [place] [address] UA Leuk Est Small Negative Invalid Interpretation 05-13 [facility] ([place]) (94597) Comment: Performed By: #### UA, PREGU , UAMICAO ####[address] [place], [place] [address] UA Nitrite Negative Negative Normal 05-13-2018 [facility] ([place]) (31284) Comment: Performed By: #### UA, PREGU , UAMICAO ####[address] [place], [place] [address] UA pH 7.5 Normal 05-13-2018 [facility] ([place]) (58376) Comment: Performed By: #### UA, PREGU , UAMICAO ####[address] [place], [place] [address] UA Protein Negative Negative Normal 05-13-2018 [facility] ([place]) (04343) Comment: Performed By: #### UA, PREGU , UAMICAO ####[address] [place], [place] [address] UA Spec Grav 1.005 Invalid Interpretation Code 05-13-2018 [facility] ([place]) (93898) Comment: Performed By: #### UA, PREGU , UAMICAO ####[address] [place], [place] [address] UA Specimen Type Clean Catch Normal 05-13-2018 [facility] ([place]) (71605) Comment: Performed By: #### UA, PREGU , UAMICAO ####[address] [place], [place] [address] UA Urobilinogen 0.2 E.U./dL Normal 05-13-2018 [facility] ([place]) (65577) Comment: Performed By: #### UA, PREGU , UAMICAO ####[address] [place], [place] [address] Urine, color Yellow Normal 05-13-2018 [facility] ([place]) (88471) Comment: Performed By: #### UA, PREGU , UAMICAO ####[address] [place], [place] [address] Urine, glucose Negative Negative mg/dL Normal 05-13-2018 [facility] ([place]) (0000 0) Comment: Performed By: #### UA, PREGU , UAMICAO ####[address] [place], [place] [address] Urine, ketones presence Negative Negative Normal 2017 [facility] ([place]) (84930) Comment: Performed By: #### UA, PREGU , UAMICAO ####[address] [place], [place] [address] Urine, Negative Negative {Ayla'U}/dL Normal 05-13-2018 [facility] urobilinogen Foundat ion ([place]) (80372) Comment: Performed By: #### UA, PREGU , UAMICAO ####[address] [place], [place] [address] pregu on 2018-05-13 HCG ( test) Ql (U) Negative Normal [facility] ([place]) (0000 0) Comment: Performed By: #### UA, PREGU , UAMICAO ####[address] [place], [place] [address] test HCG not Invalid 05-13-2018 [facility] (u) int detected. Interpretation Code [facility] ([place]) (69479) Comment: Performed By: #### UA, PREGU , UAMICAO ####[address] [place], [place] [address] cbc on 2018-05-13 Erythrocyte distribution 13.9 11.5-14.5 % Normal 05-13 [facility] width Auto Ratio (RBC) [facility] ([place]) (07994) Comment: Performed By: #### CBC, ADIF F, ANEU ####[address] [place] [address]#### L IP, CMP, GFR ####[place] [address] Erythrocytes (RBC) 5.57 4.20-5.40 10 6/mcL High 05-13-2018 [facility] ([place]) (0000 0) Comment: Performed By: #### CBC, ADIF F, ANEU ####[place] [address]#### L IP, CMP, GFR ####[place] [address] Hematocrit (HCT) 49.2 37.0-47.0 % High 05-13-2018 [facility] ([place]) (00069) Comment: Performed By: #### CBC, ADIF F, ANEU ####[place] [address]#### L IP, CMP, GFR ####[place] [address] Hemoglobin mass conc 17.1 12.0-16.0 G/dL High 8 [facility] ([facility] ([place]) (99794) Comment: Performed By: #### CBC, ADIF F, ANEU ####[place] [address]#### L IP, CMP, GFR ####[place] [address] MCH 30.6 27.0-31.2 pg Normal 05-13-2018 [facility] ([place]) (19386) Comment: Performed By: #### CBC, ADIF F, ANEU ####[place] [address]#### L IP, CMP, GFR ####[place] [address] MCHC mass conc (RBC) 34.7 33.0-37.0 G/dL Normal 8 [facility] ([place]) (0000 0) Comment: Performed By: #### CBC, ADIF F, ANEU ####[place] [address] [id number]#### L IP, CMP, GFR ####[place] [address] MCV 88.3 80.0-94.0 fL Normal 05-13-2018 [facility] ([place]) (06029) Comment: Performed By: #### CBC, ADIF F, ANEU ####[address] [place] [address]#### L IP, CMP, GFR ####[place] [address] Platelet mean volume 8.0 7.4-10.4 fL Normal 8 [facility] ([facility]) ([place]) (0000 0) Comment: Performed By: #### CBC, ADIF F, ANEU ####[place] [address]#### L IP, CMP, GFR ####[place] [address] Platelets 113 130-400 10 3/mcL Low 05-13-2018 [facility] ([place]) (21131) Comment: Performed By: #### CBC, ADIF F, ANEU ####[address] [place] [id number]#### L IP, CMP, GFR ####[place] [address] WBC (Leukocytes) 9.10 4.60-10.80 10 3/mcL Normal 05-13-2018 A [facility] ([place]) (0000 0) Comment: Performed By: #### CBC, ADIF F, ANEU ####[place] [address]#### L IP, CMP, GFR ####[place] [address] .urinalysis microscopic (ao) on 2018-05-13 UA Bacteria 1+ /hpf Invalid Interpretation Code 05-13-2018 [facility] ([place]) (27887) Comment: Performed By: #### UA, PREGU , UAMICAO ####[address] [place], [place] [address] UA Squam LOADED None Seen Invalid 05-13-2018 [facility] Epithelial Interpretation [facility] (37081) Comment: Performed By: #### UA, PREGU , UAMICAO ####[address] [place], [place] [address] UA WBC LOADED None Seen Invalid Interpretation 018 [facility]) (30153) Comment: Performed By: #### UA, PREGU , UAMICAO ####[address] [place], [place] [address] Urine, erythrocytes None Seen None Seen Normal 05-13-2018 [facility]) (0000 0) Comment: Performed By: #### UA, PREGU , UAMICAO ####[place] [place], [place] [address] .neuabs on Neutrophil, Absolute 6.70 2.85-6.16 10 3/mcL High 8 [facility] ([place]) (35562) Comment: Performed By: #### CBC, ADIF F, ANEU ####[place] [id number]#### L IP, CMP, GFR ####[address] [address] .auto diff on 05-13 Basophils Auto #/vol 0.00 0.00-0.19 10 3/[facility] Normal 8 [facility] (Bld) [facility]) (33467) Comment: Performed By: #### CBC, ADIF F, ANEU ####[place] [id number]#### L IP, CMP, GFR ####[address] [address] Basophils/100 WBC Auto (d) 0.5 0.0-2.5 % Normal 0 05-13-2018 [facility]) (0000 0) Comment: Performed By: #### CBC, ADIF F, ANEU ####[place] [address]#### L IP, CMP, GFR ####[address] [address] Eosinophils 0.10 0.00-0.40 10 3/mcL Normal 05-13-2018 [facility] ([place]) (40911) Comment: Performed By: #### CBC, ADIF F, ANEU ####[place] [address]#### L IP, CMP, GFR ####[place] [address] Eosinophils/100 leukocytes 0.8 0.0-7.0 % Normal [facility] ([place]) (0000 0) Comment: Performed By: #### CBC, ADIF F, ANEU ####[place] [address]#### L IP, CMP, GFR ####[place] [address] Lymphocytes 1.60 0.77-3.85 10 3/[facility] Normal 05-13-2018 [facility] ([place]) (38146) Comment: Performed By: #### CBC, ADIF F, ANEU ####[address] [place] [address]#### L IP, CMP, GFR ####[place] [address] Lymphocytes/100 leukocytes 18.0 10.0-50.0 % Normal [facility] ([place]) (06004) Comment: Performed By: #### CBC, ADIF F, ANEU ####[place] [address]#### L IP, CMP, GFR ####[place] [address] Monocytes 0.60 0.15-1.00 10 3/[facility] Normal 05-13-2018 [facility] ([place]) (48675) Comment: Performed By: #### CBC, ADIF F, ANEU ####[address] [place], [place] [address]#### L IP, CMP, GFR ####[address] [address] Monocytes/100 leukocytes 6.8 1.7-13.0 % Normal 05-13 [facility] ([place]) (0000 0) Comment: Performed By: #### CBC, ADIF F, ANEU ####[address] [address]#### L IP, CMP, GFR ####[address] [address] Neutrophils/100 WBC Auto 73.9 37.0-80.0 % Normal 05-13 [facility] (d) [facility] ([place]) (54724) Comment: Performed By: #### CBC, ADIF F, ANEU ####[address] [address]#### L IP, CMP, GFR ####[address] [address] urinalysis, routine on 2018-03-15 Bacteria LM.HPF #/area Few NS;RARE Abnormal [address] [place] [address] and (Urine sed) Irene Derek mora (32373) Comment: Performed By: #### GLUX #### Unless otherwise noted, all testing performed by [facility] l [address] [place] [address] CLIA: [id number] Twisting Machine Operator: Ismael vines M.D. Bilirubin,Urine Negative NEG;NEGATIVE Normal 03-15-2018 [facility] and Irene Kermit pitals (59296) Comment: Performed By: #### GLUX #### Unless otherwise noted, all testing performed by [facility] l [address] [place] [address] CLIA: [id number] Twisting Machine Operator: Ismael vines M.D. Blood,Urine Small NEG;NEGATIVE Abnormal 03-15-2018 [facility] (76748) Comment: Performed By: #### GLUX #### Unless otherwise noted, all testing performed by [place] [address] CLIA: [id number] Twisting Machine Operator: Ismael vines M.D. Character Nom (U) Cloudy Normal 03-15-2018 [facility] (39124) Comment: Performed By: #### GLUX #### Unless otherwise noted, all testing performed by [place] [address] CLIA: [id number] Twisting Machine Operator: Ismael vines M.D. Color Nom (U) Yellow Normal 03-15-2018 [facility] (16225) Comment: Performed By: #### GLUX #### Unless otherwise noted, all testing performed by [place] [address] CLIA: [id number] Twisting Machine Operator: Ismael vines M.D. Glucose Ql (U) Negative NEG;NEGATIVE Normal 03-15-2018 [facility] (78536) Comment: Performed By: #### GLUX #### Unless otherwise noted, all testing performed by [place] [address] CLIA: [id number] Twisting Machine Operator: Ismael vines M.D. Ketone,Urine Negative NEG;NEGATIVE Normal 03-15-2018 [facility] (43269) Comment: Performed By: #### GLUX #### Unless otherwise noted, all testing performed by [facility] [address] [place] [address] CLIA: [id number] Twisting Machine Operator: Ismael vines M.D. Leuk.Esterase,Urine Large Negative Abnormal 03-15-2018 [facility] (68149) Comment: Performed By: #### GLUX #### Unless otherwise noted, all testing performed by [place] [address] CLIA: [id number] Twisting Machine Operator: Ismael vines M.D. Nitrite,Urine Negative NEG;NEGATIVE Normal 03-15-2018 [facility] (67922) Comment: Performed By: #### GLUX #### Unless otherwise noted, all testing performed by [place] [address] CLIA: [id number] Twisting Machine Operator: Ismael vines M.D. pH (U) 5.0 4.5-8.0 [pH] Normal 03-15-2018 [facility] (77205) Comment: Performed By: #### GLUX #### Unless otherwise noted, all testing performed by [place] [address] CLIA: [id number] Twisting Machine Operator: Ismael vines M.D. Protein mass conc Negative NEG;NEGATIVE mg/dL Normal [address] [place] [address] ([facility] (49532) Comment: Performed By: #### GLUX #### Unless otherwise noted, all testing performed by [facility] [address] [place] [address] CLIA: [id number] Twisting Machine Operator: Ismael vines M.D. RBC,Urine 8 0-5 /HPF High 03-15-2018 [facility] (46748) Comment: Performed By: #### GLUX #### Unless otherwise noted, all testing performed by [place] [phone] CLIA: [id number] Twisting Machine Operator: Ismael vines M.D. Specific [place],Urine 1.015 1.003-1.029 Normal 03-15 [facility] (20420) Comment: Performed By: #### GLUX #### Unless otherwise noted, all testing performed by [place] [phone] CLIA: [id number] Twisting Machine Operator: Ismael vines M.D. Squamous Epithelial 11 0-40 /HPF Normal 03-15-2018 [facility] (93120) Comment: Performed By: #### GLUX #### Unless otherwise noted, all testing performed by [place] [phone] CLIA: [id number] Twisting Machine Operator: Ismael vines M.D. Urobilinogen,Urine < 2.0 <2 Normal 03-15-2018 [facility] (54643) Comment: Performed By: #### GLUX #### Unless otherwise noted, all testing performed by [place] [phone] CLIA: [id number] Twisting Machine Operator: Ismael vines M.D. WBC,Urine 46 0-5 /HPF High 03-15-2018 [facility] (60782) Comment: Performed By: #### GLUX #### Unless otherwise noted, all testing performed by [place] [phone] CLIA: [id number] Twisting Machine Operator: Ismael vines M.D. test,urine qual on 2018-03-15 HCG.beta subunit Negative Negative Normal 03-15-2018 [facility] ( [facility] (30902[facility] Comment: Result Comment: Rapid test p rocedural [...] Unless otherwise noted, all testing performed by [facility] l [address] [facility]. [place] [address] CLIA: [id number] Twisting Machine Operator: Ismael vines M.D. lipase on 2018-02-16 9 Lipase enzyme act/vol 288 73-393 U/L Normal 03-15-20 18 [facility] (74968) Comment: Performed By: #### GLUX #### Unless otherwise noted, all testing performed by [facility] l [address] [facility]. [place] [address] CLIA: [id number] Twisting Machine Operator: Ismael vines M.D. ed cardiac troponin-i on 2018-03-15 Troponin I.cardiac mass < 15 < 45 ng/mL Normal 2017 [facility] (31175) Comment: Result Comment: Elevation of troponin indicates [...] Unless otherwise noted, all testing performed by [facility] l [address] [place] [address] CLIA: [id number] Twisting Machine Operator: Ismael vines M.D. comprehensive metabolic panel on 2018-03-15 Albumin mass conc 3.8 3.2-5.2 g/dL Normal 03-15-2018 [facility] (76051) Comment: Performed By: #### GLUX #### Unless otherwise noted, all testing performed by [facility] l [address] [place] [address] CLIA: [id number] Twisting Machine Operator: Ismael vines M.D. ALP enzyme act/vol 66 40-150 U/L Normal 03-15-2018 [facility] ([id number]) Comment: Performed By: #### GLUX #### Unless otherwise noted, all testing performed by [facility] [address] [address] CLIA: [id number] Twisting Machine Operator: Ismael vines M.D. ALT enzyme act/vol 56 14-65 U/L Normal 03-15-2018 [facility] (55790) Comment: Result Comment: This test re sult might be falsely depressed or falsely elevated on samples drawn from patients taking Sulfasalazine and Sulfapyridine. Venipuncture should occur pr ior to taking either of these drugs. Performed By: #### GLUX #### Unless otherwise noted, all testing performed by [facility] [address] [address] CLIA: [id number] Twisting Machine Operator: Ismael vines M.D. AST enzyme act/vol 51 0-45 U/L High 03-15-2018 [facility] ([id number]) Comment: Result Comment: This test re sult might be falsely depressed or falsely elevated on samples drawn from patients taking Sulfasalazine and Sulfapyridine. Venipuncture should occur pr ior to taking either of these drugs. Performed By: #### GLUX #### Unless otherwise noted, all testing performed by [place] [phone] CLIA: [id number] Twisting Machine Operator: Ismael vines M.D. Bilirubin mass conc 0.5 0.3-1.2 mg/dL Normal 03-15-2018 [facility] ([id number]) Comment: Performed By: #### GLUX #### Unless otherwise noted, all testing performed by [place] [phone] CLIA: [id number] Twisting Machine Operator: Ismael vines M.D. Calcium mass conc 9.7 8.4-10.2 mg/dL Normal 03-15-2018 [facility] ([id number]) Comment: Performed By: #### GLUX #### Unless otherwise noted, all testing performed by [place] [phone] CLIA: [id number] Twisting Machine Operator: Ismael vines M.D. Chloride molar conc 105 98-108 mmol/L Normal 03-15-2018 [facility] (71585) Comment: Performed By: #### GLUX #### Unless otherwise noted, all testing performed by [place] [phone] CLIA: [id number] Twisting Machine Operator: Ismael vines M.D. CO2 molar conc 26 21-32 mmol/L Normal 03-15-2018 [facility] (00428) Comment: Performed By: #### GLUX #### Unless otherwise noted, all testing performed by [place] [address] CLIA: [id number] Twisting Machine Operator: Ismael vines M.D. Creatinine mass conc 1.67 0.40-1.10 mg/dL High 8 [facility] (56545) Comment: Performed By: #### GLUX #### Unless otherwise noted, all testing [facility] [address] [place] [address] CLIA: [id number] Twisting Machine Operator: Ismael vines M.D. GFR/1.73 sq M predicted 40 >60 ml/min/1.73sq.m Low 03-15-2018 [facility] and among blacks [facility] (80036) rate/area (S/P/Bld) Comment: Result Comment: Amer ican GFR Calc Performed By: #### GLUX #### Unless otherwise noted, all testing performed by [facility] [address] [place] [address] CLIA: [id number] Twisting Machine Operator: Ismael vines M.D. GFR/1.73 sq M predicted 33 >60 ml/min/1.73sq.m Low 03-15-2018 [facility] among non-blacks [facility] vol rate/area (S/P/Bld) (52662) Comment: Result Comment: Non- GFR Calc eGFR [...] Unless otherwise noted, all testing performed by [facility] [address] [place] [address] CLIA: [id number] Twisting Machine Operator: Ismael vines M.D. Glucose mass conc 88 70-99 mg/dL Normal 03-15-2018 [facility] (95525) Comment: Result Comment: This test re sult might be falsely depressed or falsely elevated on samples drawn from patients taking Sulfasalazine and Sulfapyridine. Venipuncture should occur pr ior to taking either of these drugs. Performed By: #### GLUX #### Unless otherwise noted, all testing performed by [facility] [address] [address] CLIA: [id number] Twisting Machine Operator: Ismael vines M.D. Potassium molar conc 4.4 3.5-5.1 mmol/L Normal 8 [facility] (00372) Comment: Performed By: #### GLUX #### Unless otherwise noted, all testing performed by [facility] [address] [address] CLIA: [id number] Twisting Machine Operator: Ismael vines M.D. Protein mass conc 7.3 6.0-8.0 g/dL Normal 03-15-2018 [facility] (97401) Comment: Performed By: #### GLUX #### Unless otherwise noted, all testing performed by [facility] [address] [address] CLIA: [id number] Twisting Machine Operator: Ismael vines M.D. Sodium molar conc 137 135-145 mmol/L Normal 03-15-2018 [facility] (93709) Comment: Performed By: #### GLUX #### Unless otherwise noted, all testing performed by [facility] [address] [address] CLIA: [id number] Twisting Machine Operator: Ismael vines M.D. Urea nitrogen mass conc 30 8-25 mg/dL High 2017 [facility] (76511) Comment: Performed By: #### GLUX #### Unless otherwise noted, all testing performed by [facility] [address] [address] CLIA: [id number] Twisting Machine Operator: Ismael vines M.D. cbc with diff on 04-03-29 Basophils #/vol (Bld) 0.1 0-0.2 K/mcL Normal 03-15-20 18 [facility] (90973) Comment: Performed By: #### CBCDIF, E DCTNI, CMET, LIPASE #### Unless otherwise noted, all testing performed by [place] [address] CLIA: [id number] Twisting Machine Operator: Ismael vines M.D. Basophils/100 WBC (Bld) 1.1 % Normal 2017 [facility] (61470) Comment: Performed By: #### CBCDIF, E DCTNI, CMET, LIPASE #### Unless otherwise noted, all testing performed by [place] [address] CLIA: [id number] Twisting Machine Operator: Ismael vines M.D. Eosinophils #/vol (Bld) 0.2 0-0.5 K/mcL Normal 2017 [facility] (37968) Comment: Performed By: #### CBCDIF, E DCTNI, CMET, LIPASE #### Unless otherwise noted, all testing performed by [facility] [address] [address] CLIA: [id number] Twisting Machine Operator: Ismael vines M.D. Eosinophils/100 WBC (Bld) 3.2 % Normal - [facility] (03216) Comment: Performed By: #### CBCDIF, E DCTNI, CMET, LIPASE #### Unless otherwise noted, all testing performed by [facility] [address] [address] CLIA: [id number] Twisting Machine Operator: Ismael vines M.D. Erythrocyte distribution 13.4 10.0-14.4 % Normal 03-15 [facility] and width [facility] (RBC) [facility] (70028) Comment: Performed By: #### CBCDIF, E DCTNI, CMET, LIPASE #### Unless otherwise noted, all testing performed by [facility] [address] [address] CLIA: [id number] Twisting Machine Operator: Ismael vines M.D. Hematocrit Volume Fraction 47.8 34.4-44.8 % High [facility] and ([facility]) [facility] (40273) Comment: Performed By: #### CBCDIF, E DCTNI, CMET, LIPASE #### Unless otherwise noted, all testing performed by [facility] [address] [address] CLIA: [id number] Twisting Machine Operator: Ismael vines M.D. Hemoglobin mass conc 15.7 11.6-15.4 g/dL High 8 [facility] and ([facility]) [facility] (31946) Comment: Performed By: #### CBCDIF, E DCTNI, CMET, LIPASE #### Unless otherwise noted, all testing performed by [facility] [address] [address] CLIA: [id number] Twisting Machine Operator: Ismael vines M.D. Lymphocytes #/vol (Bld) 1.4 1.0-3.7 K/mcL Normal 2017 [facility] ([id number]) Comment: Performed By: #### CBCDIF, E DCTNI, CMET, LIPASE #### Unless otherwise noted, all testing performed by [facility] [address] [address] CLIA: [id number] Twisting Machine Operator: Ismael vines M.D. Lymphocytes/100 WBC (Bld) 24.7 % Normal 02-16 [facility] (83851) Comment: Performed By: #### CBCDIF, E DCTNI, CMET, LIPASE #### Unless otherwise noted, all testing performed by [place] [address] CLIA: [id number] Twisting Machine Operator: Ismael vines M.D. MCH Entitic mass (RBC) 29.6 27.9-33.9 pg Normal 018 [facility] (62799) Comment: Performed By: #### CBCDIF, E DCTNI, CMET, LIPASE #### Unless otherwise noted, all testing performed by [place] [address] CLIA: [id number] Twisting Machine Operator: Ismael vines M.D. MCHC mass conc (RBC) 32.8 33.1-35.1 g/dL Low 8 [facility] (61058) Comment: Performed By: #### CBCDIF, E DCTNI, CMET, LIPASE #### Unless otherwise noted, all testing performed by [facility] [address] [address] CLIA: [id number] Twisting Machine Operator: Ismael vines M.D. MCV Entitic volume 90.5 82.6-98.9 FL Normal 03-15-2018 [facility] and (RBC) [facility] (40764) Comment: Performed By: #### CBCDIF, E DCTNI, CMET, LIPASE #### Unless otherwise noted, all testing performed by [place] [address] CLIA: [id number] Twisting Machine Operator: Ismael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 03/01/2019 8:30 AM EDT Subjective Patient ID: Reema Motta is a 43 y.o. female. Patient is here today for transitional care visit. She was admitted to [facility] 02/21/19 anddischarged 02/24/19. She was discharged with dx: CKD, hyperammonemia, polydipsia, resting tremors, and valproic acid toxicity. At this time I do not have any records from [facility]. Patient has continued to have issues [...] until she follows up with neurology in [facility], Dr. Chopra, her apt is 03/16/2019. At this time the only seizure medication she is on is the Keppra. She is also on Lorazepam 1 mg 4x a day to help with tremors and the seizures. Patient is here with her clinical services manager and she states they have an assessment on Wednesday to talk aboutAssisted living. At this time she lives with her cousin and is home alone a lot. It is also causing more stress because of declining relationship with her cousin, they are arguing a lot. clinical services manager is also concerned with patient's medication [...] Medical History: Diagnosis Date ? Acquired thrombocytopenia ([facility]) [facility]/Darren Shaikh ? Acute abdominal pain 11/17/2018 [facility] St[facility] ALEXIS,Ac Escobar ? Acute bronchitis 12/21/2018 Info Gained From: [facility] ED report --- Bob Nye MD ? Acute kidney injury (HCC) 05/22/2018 [facility]/Jonatan Chiu DO ? Acute UTI 10/14/2018 [facility]/Moi De La Cruz MD ? Anxiety ? Bronchospasm 12/21/2018 Info Gained From: [facility] ED report --- Bob Nye MD ? Calcaneal spur of right foot 2017 Documented on x-ray ? Chronic kidney disease, stage III (moderate) ([facility]) 2000 ? Congestive heart failure (CHF) ([facility]) [facility]/Darren Shaikh ? Dehydration 12/12/2018 Info Gained From: [facility] ED --- Shilpa Jensen ? Depression ? Epilepsy ([facility]) 08/06/2011 [facility]- Dr. Chopra ? Epilepsy ([facility]) 1993 ? Facet degeneration of lumbar region 10/14/2018 [facility]/Moi De La Cruz MD Mild facet degenerative changes seen in the lower lumbar spine ? Fatty liver [facility]/Joe Mendieta MD Mild fibrofatty changes of the liver ? Fluid collection (edema) in the arms, legs, hands and feet 03/09/2018 Dr valentina Chopra ? Gastritis determined by endoscopy 12/29/2016 Dr. GonzalezKwbmiz-Ffpycdtop-fbiqvgdlziknn nonbleeding with biopsy ? Hepatic steatosis [facility]/Heidy Jara MD Mild ? Hiatal hernia 12/29/[address] Lobo grade 4 ? Hypercholesterolemia [facility]/Jonatan Chiu DO ? Hypertension 2000 2000-present ? Insomnia [facility]/Darren Shaikh ? Kidney stone [facility]/Darren Shaikh ? Low back pain 10/14/2018 [facility]/Moi De La Cruz MD ? Lung nodule 12/15/2017 0.5 cm pleural based nodule in right middle lobe. Mild linear atelectasis ? Mitral valve prolapse [facility]/Darren Shaikh ? Rectus diastasis [facility]/Heidy Jara MD Present with small wide necked perumbical ventral containing fat. ? Second degree burn of foot 04/23/2018 Right Foot - [facility] ? Seizure (HCC) [facility]/Jono ALEXIS, Saulius ? Sleep apnea ? Stroke (HCC) 2001 mild ? Tremor ? Upper abdominal pain 12/03/2018 Info Gained From: /[facility] E/R Report --- Murray ALEXIS,Ac Escobar Past Surgical History: Procedure Laterality Date ? Conner pH capsule placement 02/01/2017 Dr. Lobo ? BREAST REDUCTION 2000 bilateral ? [facility] her[facility]-nonperforating gastritis ? ESOPHAGEAL MANOMETRY [...] She had a meeting on Wednesday with [employer] and assisted living and they are waiting to hear back to see if she qualifies to live in the [facility]. Tremors: Patient continues to be off of the Valproic acid until she is seen by Neurology in [facility],Dr. Chopra, her apt is 03/16/2019. She [...] has been having an increase in headaches. [employer] is making notes of all of these symptoms so she can let the neurologist know at her apt. The following portions of the patient's history were reviewed and updated as appropriate: allergies,current medications, past family history, past medical history, past social history, past surgical history and problem list. Past Medical History: Diagnosis Date ? Acquired thrombocytopenia ([facility]) [facility]/Darren Shaikh ? Acute kidney injury (HCC) 05/22/2018 [facility]/Jonatan Chiu DO ? Anxiety ? Calcaneal spur of right foot 2017 Documented on x-ray ? Chronic kidney disease, stage III (moderate) ([facility]) 2000 ? Congestive heart failure (CHF) ([facility]) [facility]/Darren Shaikh ? Depression ? Epilepsy ([facility]) 08/06/2011 [facility]- Dr. Chopra ? Epilepsy ([facility]) 1993 ? Facet degeneration of lumbar region 10/14/2018 [facility]/Jono ALEXIS, Moi Mild facet degenerative changes seen in the lower lumbar spine ? Fatty liver [facility]/Joe Mendieta MD Mild fibrofatty changes of the liver ? Fluid collection (edema) in the arms, legs, hands and feet 03/09/2018 Dr valentina Chopra ? Gastritis determined by endoscopy 12/29/2016 Dr. LeeMyzesi-Lfqhevycc-drbpuyzteacpd nonbleeding with biopsy ? Hepatic steatosis [facility]/Heidy aJra MD Mild ? Hiatal hernia 12/29/[address] Lobo grade 4 ? Hypercholesterolemia [facility]/Jonatan Chiu DO ? Hypertension 2001 2001-present ? Insomnia [facility]/Darren Shaikh ? Kidney stone [facility]/Darren Shaikh ? Lung nodule 12/15/2017 0.5 cm pleural based nodule in right middle lobe. Mild linear atelectasis ? Mitral valve prolapse [facility]/Darren Shaikh ? Rectus diastasis [facility]/Heidy Jara MD Present with small wide necked perumbical ventral containing fat. ? Second degree burn of foot 04/23/2018 Right Foot - [facility] ? Sleep apnea ? Stroke (HCC) 2001 mild ? Tremor Past Surgical History: Procedure Laterality Date ? Conner pH capsule placement 02/01/2017 Dr. Lobo ? BREAST REDUCTION 2000 bilateral ? [facility]-nonperforating gastritis ? ESOPHAGEAL MANOMETRY [...] ED/admit notes faxed To Neuro at # [phone] Pre-auth Amandeep Aldrich prior auth. received until [...] Via: Telephone ? Patient was Discharged From [facility] ? Discharge Diagnosis: HTN, anxiety, [...] 03/15/19 to ED stating seizures. Transferred to [place] observation. Describes turned to change her clothes [...] Seek Emergent Care with EMS/911/ED, When to Staff Reporter and As Directed by [employer] P[employer]ER/Surgeon/Specialist Additional Information Discussed: Yes Providers/Clinics: Home Health Care Arrangements Initiated: No Follow up with Valentina Chopra MD Specialty: Neurology [address] [place] [address] Future Appointments Date Time Provider Department Center [...] 03/31/2019 2:44 PM EDT SS from [facility] phoned, beginning evaluation for assisted living. Provided [...] Chest pain at rest Nedra Brewer Pattie [facility] RamiroJaninaCHAYA [address] [place], [place] [address] [place], [place] Phone: [phone] Phone: Fax: Status Reason Specialty Diagnoses / Referred By Referred To Procedures Contact Contact Pending Review Cardiology Diagnoses Chest pain at rest Mattie Hayden Procedures Echocardiogram complete MD [address] [place] [address] Status Reason Specialty Diagnoses / Referred By Referred To Procedures Contact Contact Pending Review Radiology Diagnoses Chest pain at rest Mattie Hayden Procedures NM Myocardial Perfusion Multiple SPECT MD [address]ella [address] [place] [address] Status Reason Specialty Diagnoses / Referred By Contact Refe rred To Contact Procedures Closed Cardiology Diagnoses Essential hypertension Chronic kidney disease, stage III (moderate) (HCC) Chest pain at rest Nedra SanchesnMattieJanina, CHAYA Krishnan MD [address] [place] [id number] [address] [place] [address] Phone: Fax: Discharge Instructions Meena Alicea RN [...] Log into your personal health record on [email or web address] and enter M879 in the Education box to learn more about Seizure: Care Instructions. Current as of: March 20, 2018 Content Version: 12.0 ? [id number] [employer]. Care instructions adapted under license by your healthcare professional. If you have questions about a medical condition or this instruction, always ask your healthcare professional. [employer] disclaims any warranty or liability for your [...] BE BASED ON THE PRIMARY CLINICAL RECORDS. [employer] provides no warranty or guarantee of the accuracy or completeness of information in this document. UNRECOGNIZED CONTENT PROVIDED BELOW FOR UNRECOGNIZED SECTION INFORMATION SOURCE DATE CREATED AUTHOR AUTHOR'S ORGANIZATIO N 12/06/2018 [facility] DATE CREATED AUTHOR AUTHOR'S ORGANIZATIO N 04/12/2018 [facility] DATE CREATED AUTHOR AUTHOR'S ORGANIZATIO N 04/12/2018 [facility] DATE CREATED AUTHOR AUTHOR'S ORGANIZATIO N 04/22/2018 [facility] DATE CREATED AUTHOR AUTHOR'S ORGANIZATIO N 05/15/2018 [facility] DATE CREATED AUTHOR AUTHOR'S ORGANIZATIO N 12/25/2018 [facility] DATE CREATED AUTHOR AUTHOR'S ORGANIZATIO N 05/[facility] DATE CREATED AUTHOR AUTHOR'S ORGANIZATIO N 07/20/2019 [facility] DATE CREATED AUTHOR AUTHOR'S ORGANIZATIO N 12/02/2019 [facility] DATE CREATED AUTHOR AUTHOR'S ORGANIZATIO N 12/07/2019 [facility] DATE CREATED AUTHOR AUTHOR'S ORGANIZATIO N 08/02/2020 [facility] UNRECOGNIZED CONTENT PROVIDED BELOW FOR UNRECOGNIZED SECTION [...] and allow cool down until at least [place] [facility] back to the pre exercise hear rate. [...] a gallbladder ultrasoundAssessment & Plan Note - Masnoor Brooke MD - 01/04/2018 3:10 PM EDTAssociated [...] and allow cool down until at least [place] [facility] back to the pre exercise hear rate. [...] to consider following up with the general auditing specialist.in this encounterAssessment & Plan Note - [...] your blood pressure was elevated at the clinic receptionist's office today because you had not taking your Cardura as the clinic receptionist thought. Your blood pressure has decreased since [...] include nonsteroidals. The nonsteroidal class includes the lyby-ilf-mwkkeme medications of Motrin, Advil, Aleve, ibuprofen, Naprosyn as well as all the prescription nonsteroidals. Typically we follow individuals with chronic kidney disease a minimum of 2-3 times a year. As the kidney disease progresses we monitor closer. Typically start with a minimum of twice a year lab work and increase to every 3 months if indicated. Referral to a kidney specialist or wood fence erector is obtained with sudden declining kidney function, [...] been out of bed since arriving at [facility]. She lives with her cousin. She [...] toxicity. She follows with Dr. Gillette from [place]. She was also using Keppra 750 mg [...] to 1000 mg twice a day. 3. [place] seizure precautions. 4. Monitor frequency alcohol seizures. [...] Portions of this chart was created using [employer] voice recognition software. Occasional wrong-word or sound-like [...] Meena Way RN - 03/16/2019 7[facility] [place] with X-Ray information with Mattie from [place] per instructions from [facility] to be scanned into patient's record. Meena Way RN - 03/16/2019 7:41 AM EDTPatikelechi's medications prior to admission are present in the med room in a cooler and need to be reviewed with this nurse and patient. There are reportedly (per patient) medications therein that she is allergic to. Per slot shift supervisor, admission is not complete Meena Way RN - 03/16/2019 7:39 AM EDTPatikelechi is awake and alert, sitting in bed and able to express her needs. She reports that the tremors she is having at bedside report time are her baseline. No seizure activity reported. She also reports that she will be going to [facility] in [place] soon. documented in this encounter UNRECOGNIZED CONTENT [...] hypertension Chronic kidney disease, stage III (moderate) ([facility]) Chest pain at rest [place], Mattie Chen, [employer]ER [employer] PACKER MD Ariella [address] [place], [place] [address] [place] [address] Phone: Fax: Reason Comments Hypertension Sore Throat X 3 days Status Reason Specialty Diagnoses / Referred By Referred To Procedures Contact Contact Pending Review Radiology Diagnoses Chest pain at rest Mattie Hayden Procedures NM Myocardial Perfusion Study Single - Stress Only NM Myocardial Perfusion Multiple SPECT MD [address] [place] [address] Reason Comments Transition Of Care Pt reports [...] 03/16/2019 4:18 PM EDTAssociated Order(s): EEG (STANDARD) [facility] EEG Report Reason for EEG: [...] IP CONSULT TO NEUROLOGY Neurology Inpatient Consult [facility] 03/16/2019 Patient: Reema Motta Date of : 1975 (43 y.o.) Referring Provider: Refer to consult order in electronic medical record PCP: Nedra Brewer CNP ASSESSMENT: 43 y.o. female presented to [facility] on 03/16/2019 with seizures. PLAN: Seizure [...] toxicity. She follows with Dr. Gillette from [place]. She was also using Keppra 750 mg [...] to 1000 mg twice a day. 3. [place] seizure precautions. 4. Monitor frequency alcohol seizures. [...] Portions of this chart was created using [employer] voice recognition software. Occasional wrong-word or sound-like [...] This occurred after she was discharged from [facility] where her Depakote was discontinued because [...] Medical History: Diagnosis Date ? Acquired thrombocytopenia ([facility]) [facility]/Darren Shaikh ? Acute kidney injury ([facility]) 05/22/2018 [facility]/Jonatan Chiu DO ? Anxiety ? Calcaneal spur of right foot 2017 Documented on x-ray ? Chronic kidney disease, stage III (moderate) ([facility]) 2000 ? Congestive heart failure (CHF) ([facility]) [facility]/Darren Shaikh ? Depression ? Epilepsy ([facility]) 08/06/2011 [facility]- Dr. Chopra ? Epilepsy ([facility]) 1993 ? Facet degeneration of lumbar region 10/14/2018 [facility]/Jono ALEXIS, Saulius Mild facet degenerative changes seen in the lower lumbar spine ? Fatty liver [facility]/Joe Mendieta MD Mild fibrofatty changes of the liver ? Fluid collection (edema) in the arms, legs, hands and feet 03/09/2018 Dr valentina Chopra ? Gastritis determined by endoscopy 12/29/2016 Dr. GonzalezVnfxms-Rwajcpsfd-pdtmovfncumgm nonbleeding with biopsy ? Hepatic steatosis [facility]/Heidy Jara MD Mild ? Hiatal hernia 12/29/[address] Lobo grade 4 ? Hypercholesterolemia [facility]/Jonatan Chiu DO ? Hypertension 2000 2000-present ? Insomnia [facility]/Darren Shaikh ? Kidney stone [facility]/Darren Shaikh ? Lung nodule 12/15/2017 0.5 cm pleural based nodule in right middle lobe. Mild linear atelectasis ? Mitral valve prolapse [facility]/Darren Shaikh ? Motor seizure ([facility]) 03/16/2019 INFO GAINED FROM: /[facility] ED VISIT --- LOZANO DO,CAREN ? Rectus diastasis [facility]/Heidy Jara MD Present with small wide necked perumbical ventral containing fat. ? Second degree burn of foot 04/23/2018 Right Foot - [facility] ? Sleep apnea ? Stroke (HCC) 2001 mild ? Tremor Past Surgical History: Procedure Laterality Date ? Conner pH capsule placement 02/01/2017 Dr. Lobo ? BREAST REDUCTION 2000 bilateral ? EGD 12/29/2016 Dr. Lobo[facility]-grade 4 hiatal hernia-nonperforating gastritis ? ESOPHAGEAL [...] file Gets together: Not on file Attends congregational service: Not on file Active member of [...] Oral Daily ? venlafaxine 37.5 mg Oral [facility] PRN Medications: senna OBJECTIVE: Physical Examination: BP 138/79 Pulse 73 Temp 98.6 ?F (37 ?C) (Oral) Resp 14 Ht 4' 8 Wt 68.5 kg (151 lb) [id number]% BMI 33.85 kg/m? Patient is awake and [...]
--- OUTSIDE RECORDS SUMMARY | 2020-08-04 12:47 | XMS RPT_ITS | CCD ---
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 Comment: Performed By: #### IFF ### [address] [address] BASOPHIL 0.08 0.00 - 0.10 x10E9/L Normal 10-25-2019 [facility] (46726) Comment: Performed By: #### MDIFF ### [address] [address] Basophils/100 WBC (Bld) 1.0 0.0 - 2.0 % Normal 2019 [facility] (94010) Comment: Performed By: #### MDIFF ### [address] [address] EOSINOPHIL 0.08 0.00 - 0.70 x10E9/L Normal 10-25-2019 [facility] (74424) Comment: Performed By: #### MDIFF ### [address] [address] LYMPHOCYTE 2.81 1.20 - 4.80 x10E9/L Normal 10-25-2019 [facility] (02390) Comment: Performed By: #### MDIFF ### [address] [address] Lymphocytes/100 WBC (Bld) 37.0 13.0 - 44.0 % Normal [facility] (00 000) Comment: Performed By: #### IFF ### [address] [address] Metamyelocytes/100 WBC 0.08 0.00 - 0.00 x10E9/L Abnormal 10-25 Confucianist (Bld) [facility] (64657) Comment: Performed By: #### MDIFF ### [address] [address] MONOCYTE 0.46 0.10 - 1.00 x10E9/L Normal 10-25-2019 [facility] (07349) Comment: Performed By: #### MDIFF ### [address] [address] Monocytes/100 WBC (Bld) 6.0 2.0 - 10.0 % Normal 10-25 [facility] (38738) Comment: Performed By: #### MDIFF ### [address] [address] SEG NEUTROPHIL 3.57 1.20 - 7.00 x10E9/L Normal 10-25-2019 [facility] (30676) Comment: Performed By: #### MDIFF ### [address] [address] lipase on 8 Lipase [Catalytic 39 9 - 82 U/L Normal 10-25-2019 [facility] (95133) Comment: Result Comment: Venipuncture immediately after or during the administration of Metamizole may lead to falsely low results. Testing should be performed immediately prior to Metamizole dosing. C-vmpwvj-m-benzoquinone imin e (metabolite of Acetaminophen) will generate erroneously lo w results in samples for patients that have taken toxic doses of acetaminophen. Performed By: #### LIPAS ### [address] [address] hcg,beta-quant on 2 HCG,BETA-QUANT <2 Normal 10-25-2019 [facility] (74949) Comment: Result Comment: Low-level po sitive HCG [...] usi ng a different test methodology at [facility] than other [place] [facility]. Direct result comparison should only be made within t he same method. REF VALUES NON FEMALE <5 MALES <5 Performed By: #### HCGQU ### [address] [address] comprehensive panel on 2019-10-25 Albumin [Mass/Vol] 4.1 3.4 - 5.0 g/dL Normal 10-25-2019 [facility] (01304) Comment: Performed By: #### CMP ####[address] [id number] ALP [Catalytic activity/Vol] 56 33 - 110 U/L Normal 0 10-25-2019 [facility] (00 000) Comment: Performed By: #### CMP ####S [address] [address] ALT [Catalytic activity/Vol] 23 7 - 45 U/L Normal 0 10-25-2019 [facility] (00 000) Comment: Result Comment: Patients graciela ated with Sulfasalazine may generate falsely decreased results fo r ALT. Performed By: #### CMP ####S [address] [address] Anion gap [Moles/Vol] 14 10 - 20 mmol/L Normal 10-25-19 [facility] (14089) Comment: Performed By: #### CMP ####S [address] [address] AST [Catalytic activity/Vol] 24 9 - 39 U/L Normal 0 10-25-2019 [facility] (00 000) Comment: Performed By: #### CMP ####S [address] [address] Bilirubin [Mass/Vol] 0.4 0.0 - 1.2 mg/dL Normal 0 [facility] (42020) Comment: Performed By: #### CMP ####S [address] [address] Calcium [Mass/Vol] 8.7 8.6 - 10.3 mg/dL Normal 10-25-2019 [facility] (84451) Comment: Performed By: #### CMP ####S [address] [address] Chloride [Moles/Vol] 100 98 - 107 mmol/L Normal 0 [facility] (48964) Comment: Performed By: #### CMP ####S [address] [address] Creatinine [Mass/Vol] 1.23 0.50 - 1.05 mg/dL High 2019 [facility] (00 000) Comment: Performed By: #### CMP ####S [address] [address] GFR- AM. 57 >60 mL/min/1.73m2 Abnormal 10-25-2019 [facility] (43324) Comment: Result Comment: CALCULATIONS OF ESTIMATED GFR ARE PERFORMED USING THE MDRD STUDY EQUATIO N FOR THE IDMS-TRACEABLE CREATININE ME THODS. CLIN CHEM 2007;53:766-72 Performed By: #### CMP ####S [address] [address] GFR-NON AM. 47 >60 mL/min/1.73m2 Abnormal 2019 [facility] (00 000) Comment: Performed By: #### CMP ####S [address] [address] Glucose [Mass/Vol] 96 74 - 99 mg/dL Normal 10-25-2019 [facility] (84365) Comment: Performed By: #### CMP ####S [address] [address] HCO3 (Bld) [Moles/Vol] 28 21 - 32 mmol/L Normal 020 [facility] (69259) Comment: Performed By: #### CMP ####S [address] [address] Potassium [Moles/Vol] 3.7 3.5 - 5.3 mmol/L Normal 10-25-19 20 [facility] (00 000) Comment: Performed By: #### CMP ####S [address] [address] Protein [Mass/Vol] 6.3 6.4 - 8.2 g/dL Low 10-25-2019 [facility] (02154) Comment: Performed By: #### CMP ####S [address] [address] Sodium [Moles/Vol] 138 136 - 145 mmol/L Normal 10-25-2019 [facility] (85566) Comment: Performed By: #### CMP ####S [address] [address] Urea nitrogen [Mass/Vol] 12 6 - 23 mg/dL Normal 10-25 [facility] (34146) Comment: Performed By: #### CMP ####[address] [address] clinical intervention - pharmacy on 2019-10-25 Clinical Pharmacist's Clinical Intervention: Norm al 10-25-2019 [facility]ist Intervention - Active and Pending Medications: [facility] Morphine Injectable, DOSE = 4 mg IntraVenous Push Once, 25-Oct-2019, Active (29451) Pharmacist intervention: Contacted nurse Type of recommendation: [...] minutes Electronic Signatures: Odilia Holcomb ([facility]) (Signed 25-Oct-2019 14:15) Authored: Pharmacist's Clinical Intervention Last Updated: 25-Oct-2019 14:15 by Odilia Holcomb ([facility]) chest 1 view on CHEST 1 VIEW Normal 10-25-2019 [facility]Y: CHEST 1 VIEW; 10/25/2019 2:12 pm INDICATION: shorntess of breath. COMPARISON: 03/22/2019 ACCESSION NUMBER(S): [id number] ORDERING CLINICIAN: TENISHA LANE FINDINGS: CHEST AP [...] 14.0 11.5 - 14.5 % Normal [facility] width (RBC) [Ratio] Health (27601) Comment: Performed By: #### CBCDF ### [address] [address] Hematocrit (Bld) [Volume 41.2 36.0 - 46.0 % Normal [facility] fraction] Health (00 000) Comment: Performed By: #### CBCDF ### [address] [address] Hemoglobin (Bld) 14.0 12.0 - 16.0 g/dL Normal 10-25-2019 [facility] [Mass/Vol] Health (0 0000) Comment: Performed By: #### CBCDF ### [address] [address] MCHC (RBC) [Mass/Vol] 33.9 32.0 - 36.0 g/dL Normal 2019 [facility] (00 000) Comment: Performed By: #### CBCDF ### [address] [address] MCV (RBC) [Entitic vol] 91 80 - 100 fL Normal 2019 [facility] (03272) Comment: Performed By: #### CBCDF ### [address] [address] Nucleated RBC/100 WBC 0.1 /100 WBC Normal 10-25-19 [facility] (Bld) [Ratio] (20785 ) Comment: Performed By: #### CBCDF ### [address] [address] Platelets (Bld) [#/Vol] 103 150 - 450 x10E9/L Low 2019 [facility] (00 000) Comment: Performed By: #### CBCDF ### [address] [address] RBC (Bld) [#/Vol] 4.55 4.00 - 5.20 x10E12/L Normal 10-25-2019 [facility] (00 000) Comment: Performed By: #### CBCDF ### [address] [address] WBC (Bld) [#/Vol] 7.6 4.4 - 11.3 x10E9/L Normal 10-25-2019 [facility] (84076) Comment: Performed By: #### CBCDF ### [address] [address] DIFFERENTIAL SEE MANUAL DIFF Normal 10-25-2019 [facility] (26189) Comment: Performed By: #### CBCDF ### [address] [address] outreach associate - procedure visit on 2019-09-25 ATOMIC SPECTROSCOPIST - Chief Complaint Normal 09-25-2019 [facility] Procedure Visit (000 00) PT HERE TODAY FOR IUD REMOVAL AND INSERTION OF MIRENA OFFICE SUPPLY. [facility]: [id number] EXP: 06/2021 LOT# [id number] History of Present Illness 44-year-old with abnormal [...] SHARLENE = N; Record; Last Updated By: Mienrva Hauser; 08/07/2019 10:46:04 AM Albuterol Sulfate HFA [...] TAKE 1 TABLET T WICE DAILY; Therapy: [id number] to Recorded Dispense: 0 Days ; #: Suffic ient Tablet Delayed Release; Refill: 0; SHARLENE = Y; Record; Last Updated By: Salma Montgomery; 05/31/2013 9:56:09 AM Depakote ER 500 MG Oral Tablet Extended Release 24 Hour; TRINIDAD E 1 TABLET BY MOUTH TWICE A DAY; Therapy: 13Xmi6013 to Recorded Rx By: KEYSHA; Dispense: 30 [...] MG TOT AL) BY MOUTH DAILY; Therapy: [id number] to Recorded Rx By: MENDY; Dispense: 30 D ays ; #:30; Refill: 0; SHARLENE = N; Record; Last Updated By: Minerva Hauser; 08/07/2019 10:53:56 AM Keppra 1000 MG Oral Tablet; TAKE 1 TABLET TWICE DAILY; Therapy: 60Zrk0409 to Recorded Dispense: 0 Days ; #:60 Tabl et; Refill: 0; SHARLENE = Y; Record; Last Updated By: Salma Montgomery; 05/31/2013 9:56:09 AM Keppra 750 MG Oral Tablet; TAKE 1 TABLET BY MOUTH TWICE A DA Y; Therapy: 98Peb9952 to Recorded Rx By: KEYSHA; Dispense: 30 [...] TAKE 1 TABLET DAILY DIRECTE D; Therapy: 24Igy0728 to Recorded Dispense: 0 Days ; #:30 Tabl et; Refill: 0; SHARLENE = N; Record; Last Updated By: Salma Montgomery; 05/31/2013 9:56:09 AM LORazepam 1 MG Oral Tablet; TAKE 1 TABLET BY MOUTH FOUR TIME S A DAY; Therapy: 40Atz1881 to Recorded Rx By: KEYSHA; Dispense: 30 D ays ; #:120; Refill: 0; SHARLENE = N; Record; Last Updated By: Minerva Hauser; 08/07/2019 10:53:56 AM LORazepam 1 MG Oral Tablet; TAKE 1 TABLET EVERY 6 TO 8 HOURS NEEDED; Therapy: 48Myy7800 to Recorded Dispense: 0 Days ; #: Suffic ient Tablet; Refill: 0; SHARLENE = N; Record; Last Updated By: Salma Montgomery; 05/31/2013 9:56:09 AM Melatonin 3 MG Oral Capsule; Therapy: (Recorded:07Aug2019) to Recorded Dispense: 0 Days ; #: Suffic ient; Refill: 0; SHARLENE = N; Record; Last Updated By: iMnerva Hauser; 08/07/2019 10:53:56 AM Mirtazapine 30 MG Oral Tablet; TAKE 1 TABLET BY MOUTH EVERY DAY AT SUPPER TIME; Therapy: 56Aub3495 to Recorded Rx By: KEYSHA; Dispense: 30 D ays ; #:30; Refill: 0; SHARLENE = N; Record; Last Updated By: Minerva Hauser; 08/07/2019 10:53:56 AM Potassium Chloride ER 10 MEQ Oral Capsule Extend ed Release; TAKE 1 CAPSULE BY MOUTH TWICE A DAY; Therapy: 27Xkv7695 to Recorded Rx By: MENDY; Dispense: 30 D ays ; #:60; Refill: 0; SHARLENE = N; Record; Last Updated By: Minerva Hauser; 08/07/2019 10:53:56 AM Therems-H Oral Tablet; TAKE 1 TABLET DAILY; Therapy: 41Ngt6024 to Recorded Dispense: 0 Days ; #:30 Tabl et; Refill: 0; SHARLENE = N; Record; Last Updated By: Salma Montgomery; 05/31/2013 9:56:09 AM Vitals Vital Signs Recorded: 63Gls1179 10:03AM Uctcupsw024 Nggyaddst78 Height4 ft 8 in Nhmtry875 lb BMI Zmousrylgl68.01 BSA Calculated1.67 Physical Exam General: None acute [...] 7.5. The Mirena IUD was loaded into quality associate and introduced using appropriate technique. Strings trimmed [...] Status: Hold For - Scheduling Requested for: [id number] Ordered Stat;For: Encounter for removal and reinsertion [...] Triage - ED Quick Triage: Normal 09-07-2019 [facility] Are You no H chely (39596) Have You Given In The Last 6 [...] obeys commands Best Verbal Response: (V5) oriented [place] Score: 15 Cough lasting greater than 3 [...] Arrival: stretcher Mode of Arrival: ambulance Agency: [facility] ([place] [employer]) Arrival From: assisted living facility ([facility]) Accompanied By: self Language: Spoken Language Preferred: Jamaican Reading Language Preferre d: Jamaican Aerial Advertiser Requested: no health consultant was requested MDRO: History of MDRO: no [...] Risk Screen - Preferred Language: Normal 2018 [facility] Adult Emergency Preferred Language: 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, 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, Alcohol, Street Drugs Admission Risk Screen: Significant IndicatorsComplete CAGE: CAGE: Is this an injured patient at a Trauma Center ([facility]/[place]): no Electronic Signatures: Maria Elena Kramer (RN) (Signed 07-Sep-2019 19:29) Authored: Preferred Language, Advanced Directives, Family Vi olence Adult, Learning Assessment (Patient), Learning Assessment (Ot her Learner), Pressure Injury/TB/Substance, CAGE Last Updated: 07-Sep-2019 19:29 by Maria Elena Kramer (RN) red cell morphology on 2019-09-07 RBC morphology finding Nom NORMAL Normal [facility] ([facility]) (90875) Comment: Performed By: #### HH #### [facility] [address] [place] [address] provider note - ed v2 on 2019-09-07 Provider Note - Provider Note - ED v2: Normal 1 11-07-2018 Confucianist ED v2 Chart Review: [facility] ED NOTES (22511) ED NOTES: The patient was sent from the group home because of abdomi nal pain. 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 Data Referenced From Triage - ED 07-Sep-2019 19:17 manual differential on 2019-09-07 % EOSINOPHIL 0.0 0.0 - 6.0 % Normal 09-07-2019 [facility] (82800) Comment: Performed By: #### HH #### [address] [address] % SEG NEUTROPHIL 65.0 40.0 - 80.0 % Normal 09-07-2019 [facility] (35466) Comment: Result Comment: Percent diff erential counts (%) should be interpreted in the context of the absolute cell counts (cells/L). Performed By: #### HH #### [address] [address] ANC 3.90 1.20 - 7.70 x10E9/L Normal 09-07-2019 [facility] (04463) Comment: Performed By: #### HH #### [address] [address] BAND NEUTROPHIL 0.06 0.00 - 0.70 x10E9/L Normal 09-07-2019 [facility] (02493) Comment: Performed By: #### HH #### [address] [address] BASOPHIL 0.00 0.00 - 0.10 x10E9/L Normal 09-07-2019 [facility] (70488) Comment: Performed By: #### HH #### [address] [address] EOSINOPHIL 0.00 0.00 - 0.70 x10E9/L Normal 09-07-2019 [facility] (60188) Comment: Performed By: #### HH #### [address] [address] LYMPHOCYTE 1.59 1.20 - 4.80 x10E9/L Normal 09-07-2019 [facility] (84953) Comment: Performed By: #### HH #### [address] [address] MONOCYTE 0.41 0.10 - 1.00 x10E9/L Normal 09-07-2019 [facility] (55356) Comment: Performed By: #### HH #### [address] [address] SEG NEUTROPHIL 3.84 1.20 - 7.00 x10E9/L Normal 09-07-2019 [facility] (72868) Comment: Performed By: #### HH #### [address] [address] Band form neutrophils/100 1.0 0.0 - 5.0 % Normal 08-19 [facility] 350 WBC (Bld) [place] ([address]99) Comment: Ordering Provider: NICKO TORRES [address]1272 Performed By: #### HH #### [address] [address] Basophils/100 WBC (Bld) 0.0 0.0 - 2.0 % Normal 2018 [facility] [address] [place] ([address]387) Comment: Ordering Provider: NICKO TORRES 73818 Performed By: #### HH #### [address] [address] Lymphocytes/100 WBC (Bld) 27.0 % Normal 08-19 [facility] [address] [place] (99657) Comment: Reference Range: 13.0 - 44.0 Ordering Provider: NICKO TORRES 54687 Performed By: #### HH #### [address] [address] Monocytes/100 WBC (Bld) 7.0 2.0 - 10.0 % Normal 09-07 [facility] [address] [place] ([address]559) Comment: Ordering Provider: NICKO TORRSE 20809 Performed By: #### HH #### [address] [address] lipase, serum on 05-09-21 Lipase [Catalytic 40 9 - 82 U/L Normal 09-07-2019 [facility] 350 activity/Vol] [place] [facility] (92341) Comment: Venipuncture immediately aft er or during the administration of Metamizole may lead to falsely low resu lts. Testing should be performed immediately prior to Metamizole dosing. O-aeaizm-a-benzoquinone imine (metabolite of Acetaminophen) will generate erroneously low results in samples for patients that have taken toxic doses of acetaminophen. Ordering Provider: NICKO TORRES 57879 Result Comment: Venipuncture immediately after or during the administration of Metamizole may lead to falsely low results. Testing should be performed immediately prior to Metamizole dosing. R-idvmlp-m-benzoquinone imin e (metabolite of Acetaminophen) will generate erroneously lo w results in samples for patients that have taken toxic doses of acetaminophen. Performed By: #### HH #### [address] [address] comprehensive panel on 2019-09-07 Albumin [Mass/Vol] 4.1 3.4 - 5.0 g/dL Normal 09-07-2019 [facility] (08543) Comment: Performed By: #### HH #### [address] [address] ALT [Catalytic activity/Vol] 19 7 - 45 U/L Normal 1 11-07-2018 [facility] (00 000) Comment: Result Comment: Patients graciela ated with Sulfasalazine may generate falsely decreased results fo r ALT. Performed By: #### HH #### [address] [address] AST [Catalytic activity/Vol] 21 9 - 39 U/L Normal 1 11-07-2018 [facility] (00 000) Comment: Performed By: #### HH #### [address] [address] GFR- AM. 46 >60 mL/min/1.73m2 Abnormal 09-07-2019 [facility] (59846) Comment: Result Comment: CALCULATIONS OF ESTIMATED GFR ARE PERFORMED USING THE MDRD STUDY EQUATIO N FOR THE IDMS-TRACEABLE CREATININE ME THODS. CLIN CHEM 2007;53:766-72 Performed By: #### HH #### [address] [address] GFR-NON AM. 38 >60 mL/min/1.73m2 Abnormal 2018 [facility] (00 000) Comment: Performed By: #### HH #### [address] [address] HCO3 (Bld) [Moles/Vol] 32 21 - 32 mmol/L Normal 019 [facility] (95039) Comment: Performed By: #### HH #### [address] [address] ALP [Catalytic 55 33 - 110 U/L Normal 09-07-2019 [facility] 350 activity/Vol] [facility] est (30226) Comment: Ordering Provider: NICKO TORRES 60273 Performed By: #### HH #### [address] [address] Anion gap [Moles/Vol] 13 10 - 20 mmol/L Normal 09-07-20 19 [facility] [address] [place] ([address]648) Comment: Ordering Provider: NICKO TORRES 78136 Performed By: #### HH #### [address] [address] Bilirubin [Mass/Vol] 0.3 0.0 - 1.2 mg/dL Normal 9 [facility] [address] [place] ([address]56) Comment: Ordering Provider: NICKO TORRES 68111 Performed By: #### HH #### [address] [address] Calcium [Mass/Vol] 9.7 8.6 - 10.3 mg/dL Normal 09-07-2019 [facility] [address] [place] ([address]34) Comment: Ordering Provider: NICKO TORRES 66575 Performed By: #### HH #### [address] [address] Chloride 97 98 - 107 mmol/L below low 09-07-2019 [facility] 350 [Moles/Vol] threshold [place] ([address]) Comment: Ordering Provider: NICKO TORRES 32233 Performed By: #### HH #### [address] [address] Creatinine 1.47 mg/dL above high 09-07-2019 [facility] [Mass/Vol] threshold [place] ([address]) Comment: Reference Range: 0.50 - 1.05 Ordering Provider: NICKO TORRES 93843 Performed By: #### HH #### [address] [address] Glucose [Mass/Vol] 94 74 - 99 mg/dL Normal 09-07-2019 [facility] [address] [place] ([address]) Comment: Ordering Provider: NICKO TORRES 54951 Performed By: #### HH #### [address] [address] Potassium 4.4 3.5 - 5.3 mmol/L Normal 09-07-2019 [facility] 350 [Moles/Vol] [place] ([address]) Comment: Ordering Provider: NICKO TORRES 85835 Performed By: #### HH #### [address] [address] Protein 6.3 6.4 - 8.2 g/dL below low 09-07-2019 [facility] 350 [Mass/Vol] threshold [place] ([address]) Comment: Ordering Provider: NICKO TORRES 02860 Performed By: #### HH #### [address] [address] Sodium [Moles/Vol] 138 136 - 145 mmol/L Normal 09-07-2019 [facility] [address] [place] (79019) Comment: Ordering Provider: NICKO TORRES 08437 Performed By: #### HH #### [address] [address] Urea nitrogen 20 6 - 23 mg/dL Normal 09-07-2019 [facility] 350 [Mass/Vol] [place] ([address]269) Comment: Ordering Provider: NICKO Sanchez Performed By: #### HH #### [address] [address] complete blood count + differential on 2019-09-07 Erythrocyte 15.2 See Below % above high 09-07-2019 [facility] 350 distribution width threshold [place] ([address]27) (RBC) [Ratio] Comment: Reference Range: 11.5 - 14.5 Ordering Provider: NICKO Sanchez Hematocrit (Bld) [Volume 38.5 See Below % 09-07 [facility] 350 [place] fraction] (89437) Comment: Reference Range: 36.0 - 46.0 Ordering Provider: NICKO Sanchez Hemoglobin (Bld) 13.1 See Below g/dL 09-07-2019 [facility] [facility] [Mass/Vol] [place] ([address]) Comment: Reference Range: 12.0 - 16.0 Ordering Provider: NICKO Sanchez MCHC (RBC) [Mass/Vol] 34.0 See Below g/dL 09-07-20 [facility] [place] ([address]) Comment: Reference Range: 32.0 - 36.0 Ordering Provider: NICKO Sanchez MCV (RBC) [Entitic vol] 91 80 - 100 fL 2018 [facility] 350 [place] ([address]) Comment: Ordering Provider: NICKO Sanchez Platelets (Bld) 92 150 - 450 {x10E9/L} below low [facility]-07[facility] [#/Vol] threshold [place] ([address]) Comment: Ordering Provider: NICKO TORRES [address]99[address] RBC (Bld) [#/Vol] 4.25 See Below {x10E12/L} 09-07-2019 [facility] 350 [place] ([address]) Comment: Reference Range: 4.00 - 5.20 Ordering Provider: NICKO TORRES [address]117 WBC (Bld) [#/Vol] 5.9 4.4 - 11.3 {x10E9/L} 09-07-2019 [facility] 350 [place] ([address]) Comment: Ordering Provider: NICKO Sanchez SEE MANUAL DIFF 09-07-2019 [facility] [place] ([address]) Comment: Ordering Provider: NICKO Guadarrama03 cbc and differential on 2019-09-07 DIFFERENTIAL SEE MANUAL DIFF Normal 09-07-2019 [facility] ([address]) Comment: Performed By: #### HH #### [address] [address] Erythrocyte distribution 15.2 11.5 - 14.5 % High [facility] width (RBC) [Ratio] Health ([address]686) Comment: Performed By: #### HH #### [address] [address] Hematocrit (Bld) [Volume 38.5 36.0 - 46.0 % Normal [facility] fraction] [facility] (00 000) Comment: Performed By: #### HH #### [address] [address] Hemoglobin (Bld) 13.1 12.0 - 16.0 g/dL Normal 09-07-2019 [facility] [Mass/Vol] [facility] (0 0000) Comment: Performed By: #### HH #### [address] [address] MCHC (RBC) [Mass/Vol] 34.0 32.0 - 36.0 g/dL Normal 2018 [facility] (00 000) Comment: Performed By: #### HH #### [address] [address] MCV (RBC) [Entitic vol] 91 80 - 100 fL Normal 2018 [facility] ([address]605) Comment: Performed By: #### HH #### [address] [address] Platelets (Bld) [#/Vol] 92 150 - 450 x10E9/L Low 2018 [facility] ([address]578) Comment: Performed By: #### HH #### [address] [address] RBC (Bld) [#/Vol] 4.25 4.00 - 5.20 x10E12/L Normal 09-07-2019 [facility] (00 000) Comment: Performed By: #### HH #### [address] [address] WBC (Bld) [#/Vol] 5.9 4.4 - 11.3 x10E9/L Normal 09-07-2019 [facility] ([address]004) Comment: Performed By: #### HH #### [address] [address] No panel information on 2019-09-07 Albumin BCP dye 4.1 3.4 - 5.0 g/dL 09-07-2019 [facility] 350 [Mass/Vol] [place] ([address]) Comment: Ordering Provider: NICKO TORRES 00074 ALT With P-5'-P [Catalytic 19 7 - 45 U/L [facility] 350 [place] activity/Vol] ([address] ) Comment: Patients treated with Sulfas alazine may generate falsely decreased results for ALT. Ordering Provider: NICKO TORRES 42762 AST With P-5'-P [Catalytic 21 9 - 39 U/L [facility] 350 [place] activity/Vol] ([address] ) Comment: Ordering Provider: NICKO TORRES [address]281 Basophils (Bld) 0.00 See Below {x10E9/L} 09-07-2019 [facility] [#/Vol] [place] ([address]) Comment: Reference Range: 0.00 - 0.10 Ordering Provider: NICKO TORRES [address]96 CO2 [Moles/Vol] 32 21 - 32 mmol/L 09-07-2019 [facility] ([address]) Comment: Ordering Provider: NICKO Sanchez Eosinophils (Bld) 0.00 See Below {x10E9/L} 09-07-2019 [facility] [#/Vol] [place] ([facility]) Comment: Reference Range: 0.00 - 0.70 Ordering Provider: NICKO Sanchez Eosinophils/100 WBC (Bld) 0.0 0.0 - 6.0 % 08-19 [facility] ([facility]) Comment: Ordering Provider: NICKO Sanchez Lymphocytes (Bld) 1.59 See Below {x10E9/L} 09-07-2019 [address] [place] [address] [#/Vol] [place] ([facility]) Comment: Reference Range: 1.20 - 4.80 Ordering Provider: NICKO Sanchez Monocytes (Bld) 0.41 See Below {x10E9/L} 09-07-2019 [place] [address] [#/Vol] [place] ([address]) Comment: Reference Range: 0.10 - 1.00 Ordering Provider: NICKO Sanchez Segmented neutrophils/100 65.0 See Below % 08-19 [place] [address] WBC (Bld) [place] ([address]) Comment: Reference Range: 40.0 - 80.0 Percent differential counts (%) should be interpreted in the context o f the absolute cell counts (cells/L). Ordering Provider: NICKO TORRES 89827 3.84 See Below {x10E9/L} 09-07-2019 [facility] [address] ([facility]) Comment: Reference Range: 1.20 - 7.00 Ordering Provider: NICKO Sanchez 38 >60 {mL/min/1.73m2} Abnormal 09-07-2019 [facility] [place] ([address]) Comment: Ordering Provider: NICKO Sanchez 0.06 See Below {x10E9/L} 09-07-2019 [facility] 350 [place] ([address]) Comment: Reference Range: 0.00 - 0.70 Ordering Provider: NICKO Sanchez NORMAL 09-07-2019 [place] [address] [place] ([address]) Comment: Ordering Provider: NICKO Sanchez 3.90 See Below {x10E9/L} 09-07-2019 [place] [address] [place] ([address]) Comment: Reference Range: 1.20 - 7.70 Ordering Provider: NICKO Sanchez 46 >60 {mL/min/1.73m2} Abnormal 09-07-2019 [facility] 350 [place] ([address]) Comment: CALCULATIONS OF ESTIMATED GF R ARE PERFORMED USING THE MDRD STUDY EQUATION FOR THE IDMS-TRACEABLE CREAT ININE METHODS. CLIN CHEM 2007;53:766-72 Ordering Provider: NICKO Sanchez knee cmplt, 4 or more views on 2019-08-21 KNEE CMPLT, 4 OR Normal [address] [place] [address] MORE VIEWS [facility] STUDY: KNEE; COMPLT, 4 OR MORE VIEWS;Left; 08/20/2019 10:00 pm INDICATION: fall. COMPARISON: None. ACCESSION NUMBER(S): [id number] ORDERING CLINICIAN: TENISHA LANE FINDINGS: Four views left knee. No acute fracture or malalignment. Bones appear normally min eralized. No significant degenerative changes. No knee effusion. Soft tissues are within normal limits. IMPRESSION: Normal left knee radiography. Electronically signed by: HEIDY JARA MD No panel information on 2019-08-21 XR Knee 4 Interpreted by: HEIDY Del Rio 2018 [facility] 350 evan JARA08/20/19 [place] ([address]) 22:23MRN: [id number] Name: [facility] REEMA STUDY:KNEE; COMPLT, 4 OR MORE VIEWS;Left; 08/20/2019 10:00 pm INDICATION:fall. COMPARISON:None. ORDERING CLINICIAN:TENISHA LANE FINDINGS:Four views left knee. No acute fracture or malalignment. Bones appear normally mineralized.No significant degenerative changes. No knee effusion. Soft tissuesare within normal limits. IMPRESSION:Normal left knee radiography. Electronically signed by: HEIDY JARA 08/20/19 22:23 Comment: Ordering Provider: TENISHA Mckoy [address] triage - ed on 2018 Triage - ED Quick Triage: Normal 08-20-2019 [facility] Are You no H ealth ([address]797) Have You Given In The Last 6 [...] BMI (kg/m2): 39.266 Calculated BSA (m2) 1.77 [place] Coma Scale: Best Eye Response: (E4) spontaneous [...] assisted living facility Accompanied By: self and renewable energy consultant Language: Spoken Language Preferred: Jamaican Reading Language Preferre d: Jamaican PRIMARY ASSESSMENT ABCD Normal Findings: airway open and patent PAST MEDICAL HISTORY Immunization History: Last Known Tetanus Immunization: Less than 5 years TRAVEL HISTORY Travel Exposure History: NO travel to [facility] in the past 30 days Past Medical [...] Risk Screen - Preferred Language: Normal 2018 [facility] Preferred Language: [facility] Preferred Language for Discussing Health Care (patient/desjose rodriguez)Jamaican ([id number]) Advanced Directives: Advance Directive/DNRno Family Violence Adult: Abuse Screen: Are you or have you been threatened or abused physically, em otionally, or sexually by anyoneno Learning Assessment (Patient): Learning Assessment (Patient): Patient is Able to be Assessed for Learningyes Factors Influencing Readiness to Learnmotivation to learn Factors that Impact Ability to Learnnone Devices/Methods Used to Communicatenone Learning Preferencesaudio Cultural Considerationsnone Developmental Considerationsnone Mandaeism Considerationsnone Learning Assessment (Other Learner): Learning Assessment (Other Learner): Other learner availableno Pressure Injury/TB/Substance: Pressure Injury: Pressure Injury Present on Admissionno Do you have a coughno Substance Use Current or Former 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: 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, 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, Alcohol, Street Drugs Admission Risk Screen: Significant IndicatorsComplete CAGE: CAGE: Is this an injured patient at a Trauma Center ([facility]/[place]): no Electronic Signatures: Megan Linton (RN) (Signed 20-Aug-2019 21:45) Authored: Preferred Language, Advanced Directives, Family Vi olence Adult, Learning Assessment (Patient), Learning Assessment (Ot her Learner), Pressure Injury/TB/Substance, CAGE Last Updated: 20-Aug-2019 21:45 by Megan Linton (RN) provider note - ed v2 on 2019-08-20 Provider Note - Provider Note - ED v2: Normal 1 10-20-2018 Conf[facility]ist ED v2 Chart Review: [facility] ED NOTES (50947) ED NOTES: HPI: [facility] and just prior to arrival she had [...] and oriented x4 , GCS 15 , facilities 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 Sensation and motor function [...] Description:epileptic seizure Description:anxiety Description:major depressive disorder Description:hypertension ATOMIC SPECTROSCOPIST: Is : no(1) Is : no(1) RESULTS/VITAL [...] SIGNS: T PRBP SpO2O2(LPM) %FiO2 Method 20-Aug-2019 21:02:[id number]/75 95 room air, no respira tory support [...] no acute distress. Patient discharged back to group home faci lity. The CAT scan of your [...] patient: no Electronic Signatures: Tenisha Lane I (VIRTUAL ASSISTANT-CERTIFIED DENTAL ASSISTANT) (Signed 20-Aug-2019 22:33) Authored: Provider Note - ED v2 Last Updated: 20-Aug-2019 22:[address] I (VIRTUAL ASSISTANT-CERTIFIED DENTAL ASSISTANT) References: 1. Data Referenced From Triage - ED 20-Aug-2019 21:02 ct head wo contrast on 2019-08-20 CT HEAD WO Normal 08-20-2019 [facility] CONTRAST [facility] ([id number]) STUDY: CT HEAD WO CONTRAST; CT C-SPINE WO CONTRAST;; 08/20/2019 9:58 pm INDICATION: fall. COMPARISON: 03/18/[address] cervical spine from 03/16/2019. ACCESSION NUMBER(S): [id number]; [id number] ORDERING CLINICIAN: TENISHA LANE TECHNIQUE: Noncontrast CT [...] 08-[facility] ([id number]) STUDY: CT HEAD WO CONTRAST; CT C-SPINE WO CONTRAST;; 08/20/2019 9:58 pm INDICATION: fall. COMPARISON: 03/18/[address] cervical spine from 03/16/2019. ACCESSION NUMBER(S): [id number]; [id number] ORDERING CLINICIAN: TENISHA LANE TECHNIQUE: Noncontrast CT [...] Head Interpreted by: HEIDY Del Rio [address]08/20/19 [place] ([id number]) contrast 22:22MRN: [id number] Name: REEMA MOTTA STUDY:CT HEAD WO CONTRAST; CT C-SPINE WO CONTRAST;; 08/20/2019 9:58 pm INDICATION:fall. COMPARISON:03/18/[address] cervical spine from 03/16/2019. [id number] ORDERING CLINICIAN:TENISHA LANE TECHNIQUE:Noncontrast CT exams of [...] 08/20/19 22:22 Comment: Ordering Provider: TENISHA Mckoy 62598 Interpreted by: HEIDY Del Rio 08-20-[address]08/20/19 22:22MRN: [id number]) [id number] Name: REEMA MOTTA STUDY:CT HEAD WO CONTRAST; CT C-SPINE WO CONTRAST;; 08/20/2019 9:58 pm INDICATION:fall. COMPARISON:03/18/[address] cervical spine from 03/16/2019. [id number] ORDERING CLINICIAN:TENISHA LANE TECHNIQUE:Noncontrast CT exams of [...] 08/20/19 22:22 Comment: Ordering Provider: TENISHA Mckoy [address] outreach associate - office visit on 2019-08-07 ATOMIC SPECTROSCOPIST - Chief Complaint Normal 08-07-2019 [facility] Office Visit ([id number]) PT HERE TODAY FOR US RESULTS History [...] SHARLENE = N; Record; Last Updated By: Mienrva Hauser; 08/07/2019 10:46:04 AM Doxazosin Mesylate 4 [...] MG TOT AL) BY MOUTH DAILY; Therapy: [id number] to Recorded Rx By: MENDY; Dispense: 30 D ays ; #:30; Refill: 0; SHARLENE = N; Record; Last Updated By: Minerva Hauser; 08/07/2019 10:53:56 AM Keppra 750 MG Oral Tablet; TAKE 1 TABLET BY MOUTH TWICE A DA Y; Therapy: [id number] to Recorded Rx By: KEYSHA; Dispense: 30 [...] MOUTH FOUR TIME S A DAY; Therapy: [id number] to Recorded Rx By: KEYSHA; Dispense: 30 [...] MOUTH EVERY DAY AT SUPPER TIME; Therapy: [id number] to Recorded Rx By: KEYSHA; Dispense: 30 D ays ; #:30; Refill: 0; SHARLENE = N; Record; Last Updated By: Minerva Hauser; 08/07/2019 10:53:56 AM Potassium Chloride ER 10 MEQ Oral Capsule Extend ed Release; TAKE 1 CAPSULE BY MOUTH TWICE A DAY; Therapy: [id number] to Recorded Rx By: MENDY; Dispense: 30 D ays ; #:60; Refill: 0; SHARLENE = N; Record; Last Updated By: Minerva Hauser; 08/07/2019 10:53:56 AM Vitals Vital Signs Recorded: 07Aug2019 11:01AM Wstdnsxl840 Ppyblstik87 Height4 ft 7.12 in Lwfbnz949 lb 4.83 oz BMI Jmmowgixgf58.11 BSA Calculated1.65 Physical Exam General: None acute distress Eye: Intraocular movements are intact HEENT: Normocephalic Respiratory: Respirations are nonlabored Gastrointestinal: Nondistended Musculoskeletal: Normal range of motion Neurologic: Alert and orientedx3 Psychiatric: Cooperative appropriate mood and affect. Results/Data Ultrasound Pelvis Transabdom inal With Ofeuapgrzwbp52Ypj3857 10:44Anel Livingston Test NameResultFlagReference Ultrasound Pelvis Transabdominal With Transvaginal(Report) Interpreted by: TIFFANIE PARK 08/03/19 22:49 Patient Name: REEMA MOTTA STUDY: US PELVIS TRANSABDOMINAL WITH TRANSVAGINAL; 08/03/2019 10:44 am INDICATION: PELVIC PAIN. COMPAR BRIGIDA: None. ACCESSION NUMBER (S): [id number] ORDERING CLINICIAN: ANEL MORGAN TECHNIQUE: Transabdominal and [...] 36.5 36.0 - 46.0 % Normal [facility]] Health (00 000) Comment: Performed By: #### HH #### [address] [address] Hemoglobin (Bld) 12.3 12.0 - 16.0 g/dL Normal 08-04-2019 [facility] [Mass/Vol] Health (0 0000) Comment: Performed By: #### HH #### [address] [address] us pelvis transabdominal with transvagin al on 2019-08-03 US PELVIS Normal 08-03-2019 [facility] TRANSABDOMINAL WITH [facility]: [facility] TRANSVAGINAL ([id number]) STUDY: US PELVIS TRANSABDOMINAL WITH TRANSVAGINAL; 08/03/2019 10:44 am INDICATION: PELVIC PAIN. COMPARISON: None. ACCESSION NUMBER(S): [id number] ORDERING CLINICIAN: ANEL MORGAN TECHNIQUE: Transabdominal and [...] 2019-08-03 Interpreted by: TIFFANIE NAVARRO Normal 08-03-2019 [address]OBRIAL1 22:49MRN: Jaspal ([id number]) [id number] Name: REEMA MOTTA STUDY:US PELVIS TRANSABDOMINAL WITH [...] PCR. Not Detected Not Detected Normal 2018 [facility] (33568) Comment: Result Comment: Xpert CT/NG Assay performance has not been evaluated in patients less than 14 years of age. Performed By: #### [id number] #### MARCUS RemHemo [facility] [place] [address] Gonorrhoeae by PCR Not Detected Not Detected Normal 07-19 [facility] ([address]27) Comment: Result Comment: Xpert CT/NG Assay performance has not been evaluated in patients less than 14 years of age. Performed By: #### [id number] #### MARCUS RemHemo [facility] [place] [address] ct abdomen/pelvis w/ contrast on 2019-07-05 CT Abdomen/Pelvis w/ Exam Date/Time: Normal Conf[facility]ist Contrast 07/05/2019 13:[address] [facility] Reason for Exam: s tem ([id number]) ABDOMINAL PAIN AND TENDERNESS Report STUDY: CT Abdomen/Pelvis w/ Contrast; 07/05/2019 1:33 pm INDICATION: ABDOMINAL PAIN AND TENDERNESS. COMPARISON: 12/02/2018 ACCESSION NUMBER(S): [id number] ORDERING CLINICIAN: Holden Velasco TECHNIQUE: Contiguous axial [...] Magnesium [Mass/Vol] 2.0 1.6-2.4 mg/dL Normal 9 [facility] () Comment: Performed By: #### [id number] #### MARCUS RemHemo [address] [place] [address] egfr on 2019-03-25 GFR/1.73 sq M predicted >60 mL/min/{1.73_m2} Normal 03-25-2019 [facility] among non-blacks [facility] ([address]) (S/P/Bld) [Vol rate/Area] Comment: Order Comment: Order Added b y Discern Expert. Performed By: #### [id number] #### MARCUS RemHemo [address] [place] [id number] GFR/1.73 sq M predicted 50 mL/min/1.73 m2 Normal 0 03-25-2019 [facility] among non-blacks [facility] ([address]277) (S/P/Bld) [Vol rate/Area] Comment: Order Comment: Order Added b y Discern Expert. Performed By: #### [id number] #### MARCUS RemHemo [address] [place] [address] bmp on 2019-03-25 Anion gap [Moles/Vol] 10 10-20 mEq/L Normal 03-25-20 19 [facility] () Comment: Performed By: #### [id number] #### MARCUS RemHemo [address] [place] [address] Calcium [Mass/Vol] 8.7 8.6-10.3 mg/dL Normal 03-25-2019 [facility] () Comment: Performed By: #### [id number] #### MARCUS RemHemo [address] [place] [address] Chloride [Moles/Vol] 108 98-107 mEq/L High 9 [facility] () Comment: Performed By: #### [id number] #### MARCUS RemHemo [address] [place] [address] CO2 [Moles/Vol] 25.0 21.0-32.0 mEq/L Normal 03-25-2019 [facility] () Comment: Performed By: #### [id number] #### MARCUS WilcoxHemo [address] [place] [address] Creatinine [Mass/Vol] 1.2 0.5-1.1 mg/dL High 03-25-20 [facility] () Comment: Performed By: #### [id number] #### MARCUS RemHemo [facility] [place] [address] Glucose [Mass/Vol] 97 70-99 mg/dL Normal 03-25-2019 [facility] (56379) Comment: Performed By: #### [id number] #### MARCUS RemHemo [facility] [place] [address] Potassium [Moles/Vol] 4.5 3.5-5.3 mEq/L Normal 03-25-20 [facility] () Comment: Performed By: #### [id number] #### MARCUS RemHemo [facility] [place] [address] Sodium [Moles/Vol] 138 136-145 mEq/L Normal 03-25-2019 [facility] () Comment: Performed By: #### [id number] #### MARCUS RemHemo [facility] [place] [address] Urea nitrogen [Mass/Vol] 14 6-23 mg/dL Normal 03-25 [facility] ( 000) Comment: Performed By: #### [id number] #### MARCUS RemHemo [facility] [place] [address] Urea nitrogen/Creatinine 11.7 5.4-30.0 ratio Normal 03-25 [facility] [Mass ratio] [facility] (20144) Comment: Performed By: #### [id number] #### MARCUS RemHemo [facility] [place] [address] magnesium on 6-07 Magnesium [Mass/Vol] 2.1 1.6-2.4 mg/dL Normal 9 [facility] (00 000) Comment: Performed By: #### [id number] #### MARCUS WilcoxHemo [address] [place] [address] egfr on 2019-03-24 GFR/1.73 sq M predicted 55 mL/min/1.73 m2 Normal 0 03-24-2019 [facility] among non-blacks [facility] ([address]) (S/P/Bld) [Vol rate/Area] Comment: Order Comment: Order Added b y Discern Expert. Performed By: #### [id number] #### MARCUS JeriHemo [facility] [place] [address] GFR/1.73 sq M predicted >60 mL/min/{1.73_m2} Normal 03-24-2019 [facility] among non-blacks [facility] ([address]73) (S/P/Bld) [Vol rate/Area] Comment: Order Comment: Order Added b y Discern Expert. Performed By: #### [id number] #### MARCUS JeriHemo [facility] [place] [address] cbc w/ auto diff on 2019-03-24 Erythrocyte distribution 13.4 11.5-14.5 % Normal 03-24 [facility] width (RBC) [Ratio] Health System (74523) Comment: Performed By: #### [id number] #### MARCUS JeriHemo [facility] [place] [address] Hematocrit (Bld) [Volume 36.3 36.0-48.0 % Normal 03-24 [facility] fraction] Health Sys tem ([address]378) Comment: Performed By: #### [id number] #### MARCUS JeriHemo [address] [place] [address] Hemoglobin (Bld) 12.3 12.0-16.0 G/DL Normal 03-24-2019 [facility] [Mass/Vol] Health [facility] (41076) Comment: Performed By: #### [id number] #### MARCUS JeriHemo [address] [place] [address] MCH (RBC) [Entitic mass] 30.4 27.0-31.0 pg Normal 03-24 [facility] (00 000) Comment: Performed By: #### [id number] #### MARCUS WilcoxHemo [facility] [place] [address] MCHC (RBC) [Mass/Vol] 33.7 33.0-37.0 G/DL Normal 03-24-20 [facility] (00 ) Comment: Performed By: #### [id number] #### MARCUS WilcoxHemo [facility] [place] [address] MCV (RBC) [Entitic vol] 90.1 78.0-100.0 fL Normal 03-24 [facility] (51905) Comment: Performed By: #### [id number] #### MARCUS Kenyono [facility] [place] [address] Platelet mean volume 8.3 7.4-11.0 fL Normal [facility] (Bld) [Entitic vol] System (43419) Comment: Performed By: #### [id number] #### MARCUS JeriHemo [facility] [place] [address] Platelets (Bld) [#/Vol] 101 130-400 E3/mcL Low 2018 [facility] () Comment: Performed By: #### [id number] #### MARCUS Kenyono [facility] [place] [address] RBC (Bld) [#/Vol] 4.04 3.90-5.40 E6/mcL Normal 03-24-2019 [facility] () Comment: Performed By: #### [id number] #### MARCUS WilcoxHemo [facility] [place] [address] WBC (Bld) [#/Vol] 3.9 3.6-11.0 E3/mcL Normal 03-24-2019 [facility] () Comment: Performed By: #### [id number] #### MARCUS WilcoxHemo [facility] [place] [address] bmp on 2019-03-24 Anion gap [Moles/Vol] 9 10-20 mEq/L Low 03-24-20 [facility] ([address]100) Comment: Performed By: #### [id number] #### MARCUS RemHemo [address] [place] [address] Calcium [Mass/Vol] 8.2 8.6-10.3 mg/dL Low 03-24-2019 [facility] ([address]) Comment: Performed By: #### [id number] #### MARCUS RemHemo [address] [place] [address] Chloride [Moles/Vol] 110 98-107 mEq/L High 9 [facility] (00 000) Comment: Performed By: #### [id number] #### MARCUS RemHemo [address] [place] [address] CO2 [Moles/Vol] 23.0 21.0-32.0 mEq/L Normal 03-24-2019 [facility] (00 000) Comment: Performed By: #### [id number] #### MARCUS RemHemo [address] [place] [address] Creatinine [Mass/Vol] 1.1 0.5-1.1 mg/dL Normal 03-24-20 19 [facility] (00 000) Comment: Performed By: #### [id number] #### MARCUS RemHemo [address] [place] [address] Glucose [Mass/Vol] 92 70-99 mg/dL Normal 03-24-2019 [facility] ([address]) Comment: Performed By: #### [id number] #### MARCUS RemHemo [address] [place] [address] Potassium [Moles/Vol] 4.1 3.5-5.3 mEq/L Normal 03-24-20 19 [facility] (00 000) Comment: Performed By: #### [id number] #### MARCUS RemHemo [address] [place] [address] Sodium [Moles/Vol] 138 136-145 mEq/L Normal 03-24-2019 [facility] (00 000) Comment: Performed By: #### [id number] #### MARCUS RemHemo [address] [place] [address] Urea nitrogen [Mass/Vol] 11 6-23 mg/dL Normal 03-24 [facility] (00 000) Comment: Performed By: #### [id number] #### MARCUSShawn [address] [address] Urea nitrogen/Creatinine 10.0 5.4-30.0 ratio Normal 03-24 [facility] [Mass ratio] [facility] ([address]) Comment: Performed By: #### [id number] #### MARCUS Jeri[address] [address] auto diff on 03-24 Basophils (Bld) [#/Vol] 0.0 0.0-0.2 E3/mcL Normal 2018 [facility] tem ([address]) Comment: Order Comment: Order Added b y Discern Expert. Performed By: #### [id number] #### MARCUS Wilcox[address] [address] Basophils/100 WBC (Bld) 0.1 0.0-2.0 % Normal 2018 [facility] (00 000) Comment: Order Comment: Order Added b y Discern Expert. Performed By: #### [id number] #### [facility] Jeri11 [address] [address] Eos Absolute 0.1 0.0-0.7 E3/mcL Normal 03-24-2019 [facility] (94641) Comment: Order Comment: Order Added b y Discern Expert. Performed By: #### [id number] #### [facility] [address] [address] Eosinophils/100 WBC (Bld) 1.7 0.0-11.0 % Normal [facility] (00 000) Comment: Order Comment: Order Added b y Discern Expert. Performed By: #### [id number] #### [address] [address] Lymphocytes (Bld) [#/Vol] 1.3 1.2-3.4 E3/mcL Normal [facility] tem (43037) Comment: Order Comment: Order Added b y Discern Expert. Performed By: #### [id number] #### [address] [place] [address] Lymphocytes/100 WBC (Bld) 33.8 20.0-55.0 % Normal [facility] (61526) Comment: Order Comment: Order Added erma Aldana Expert. Performed By: #### [id number] #### MARCUS Kenyono [address] [place] [address] Cassia Absolute 0.4 0.0-0.7 E3/mcL Normal 03-24-2019 [facility] (66290) Comment: Order Comment: Order Added erma y Discern Expert. Performed By: #### [id number] #### [facility] [address] [place] [address] Monocytes/100 WBC (Bld) 11.3 0.0-10.0 % High 2018 [facility] (00 000) Comment: Order Comment: Order Added erma Aldana Expert. Performed By: #### [id number] #### MARCUS [address] [address] Neutro Absolute 2.1 1.4-6.5 E3/mcL Normal 03-24-2019 [facility] (45124) Comment: Order Comment: Order Added erma Aldana Expert. Performed By: #### [id number] #### MARCUSShawn Kenyon[address] [address] Neutro Auto 53.1 37.0-75.0 % Normal 03-24-2019 [facility] (88490) Comment: Order Comment: Order Added erma Aldana Expert. Performed By: #### [id number] #### [facility] [address] [place] [address] zzplt morph on 2018 Platelet morphology finding NORMAL Normal [facility] (d) System (00 000) Comment: Performed By: #### [id number] #### [facility]CSU [facility] [address] [place] [address] Platelets (Bld) [#/Vol] DECREASED Normal 2018 [facility] (00 000) Comment: Performed By: #### [id number] #### [facility]US [facility] [address] [id number] xr shoulder complete left on 2019-03-23 XR Shoulder Exam Date/Time: Normal 03-23-2019 [facility] Complete Left 03/23/2019 01:05 EDT Health System Reason for Exam: (00 000) Fall Report STUDY: XR Shoulder Complete Left;; 03/23/2019 1:05 am INDICATION: Fall. COMPARISON: None. ACCESSION NUMBER(S): [id number] ORDERING CLINICIAN: Narcisa Lo FINDINGS: Five views [...] TSH Qn 2.75 0.30-5.60 mcIU/mL Normal 03-23-2019 [facility] (90786) Comment: Performed By: #### [id number] #### MARCUS Luong [address] [place] [address] troponin-i on 03-23 Troponin I.cardiac 0.01 0.00-0.03 ng/mL Normal 03-23-2019 [facility] [Mass/Vol] [facility] stem (94554) Comment: Order Comment: Order Added b y Katya Expert. Performed By: #### [id number] #### MARCUS Luong [facility] [place] [address] manual diff on 2018 Anisocytosis Ql (Bld) 1+ Normal 03-23-20 19 [facility] (00082) Comment: Order Comment: Order Added b y Discern Expert. Performed By: #### [id number] #### MARCUS Luong [facility] [id number] Basophil Man 0 0-1 % Normal 03-23-2019 [facility] (89086) Comment: Order Comment: Order Added b y Katya Expert. Performed By: #### [id number] #### MARCUS Kenyono [address] [place] [address] Eosinophils/100 WBC (Bld) 0 0-5 % Normal [facility] (22862) Comment: Order Comment: Order Added b y Discern Expert. Performed By: #### [id number] #### MARCUS Kenyono [address] [place] [address] Lymphocytes/100 WBC (Bld) 54 14-48 % High [facility] (64223) Comment: Order Comment: Order Added b y Discern Expert. Performed By: #### [id number] #### MARCUS Kenyono [address] [place] [address] Monocyte Man 4 1-11 % Normal 03-23-2019 [facility] (10181) Comment: Order Comment: Order Added b y Discern Expert. Performed By: #### [id number] #### MARCUS Kenyono [address] [place] [address] RBC morphology finding SEE MORPHOLOGY Normal [facility] tem (40196) Comment: Order Comment: Order Added b y Discern Expert. Performed By: #### [id number] #### MARCUS Kenyono [address] [place] [address] Segs Man 42 37-75 % Normal 03-23-2019 [facility] (83737) Comment: Order Comment: Order Added b y Discern Expert. Performed By: #### [id number] #### MARCUSShawn Kenyono [facility] [place] [address] magnesium on 03-23 Magnesium [Mass/Vol] 2.9 1.6-2.4 mg/dL High 9 [facility] (00 000) Comment: Performed By: #### [id number] #### MARCUSShawn Kenyono [facility] [place] [address] egfr on 2019-03-23 GFR/1.73 sq M predicted >60 mL/min/{1.73_m2} Normal 03-23-2019 [facility] among non-blacks [facility] (19930) (S/P/Bld) [Vol rate/Area] Comment: Order Comment: Order Added erma Aldana Expert. Performed By: #### [id number] #### MARCUS WilcoxHemo [address] [place] [address] GFR/1.73 sq M predicted 56 mL/min/1.73 m2 Normal 0 03-23-2019 [facility] among non-blacks [facility] (08280) (S/P/Bld) [Vol rate/Area] Comment: Order Comment: Order Added erma Aldana Expert. Performed By: #### [id number] #### MARCUS JeriHemo [facility] [place] [address] cbc w/ auto diff on 2019-03-23 Erythrocyte distribution 13.6 11.5-14.5 % Normal 03-23 [facility] width (RBC) [Ratio] Health System (46231) Comment: Performed By: #### [id number] #### [facility] [place] [address] Hematocrit (Bld) [Volume 36.9 36.0-48.0 % Normal 03-23 [facility] fraction] Health Sys tem (31378) Comment: Performed By: #### [id number] #### MARCUS WilcoxHemo [facility] [place] [address] Hemoglobin (Bld) 12.2 12.0-16.0 G/DL Normal 03-23-2019 [facility] [Mass/Vol] Health [facility] (24942) Comment: Performed By: #### [id number] #### MARCUSShawn WilcoxHemo [facility] [place] [address] MCH (RBC) [Entitic mass] 30.1 27.0-31.0 pg Normal 03-23 [facility] (00 000) Comment: Performed By: #### [id number] #### [facility] [place] [address] MCHC (RBC) [Mass/Vol] 33.1 33.0-37.0 G/DL Normal 03-23-20 19 [facility] (00 000) Comment: Performed By: #### [id number] #### [facility] [place] [address] MCV (RBC) [Entitic vol] 91.0 78.0-100.0 fL Normal 03-23 [facility] (17320) Comment: Performed By: #### [id number] #### MARCUS JeriHemo [address] [place] [address] Platelet mean volume 8.3 7.4-11.0 fL Normal 9 [facility] (Bld) [Entitic vol] System (00945) Comment: Performed By: #### [id number] #### MARCUSShawn WilcoxHemo [facility] [place] [address] Platelets (Bld) [#/Vol] 97 130-400 E3/mcL Low 2018 [facility] (00 000) Comment: Performed By: #### [id number] #### MARCUS JeriHemo [facility] [place] [address] RBC (Bld) [#/Vol] 4.05 3.90-5.40 E6/mcL Normal 03-23-2019 [facility] (00 000) Comment: Performed By: #### [id number] #### MARCUSShawn WilcoxHemo [facility] [place] [address] WBC (Bld) [#/Vol] 3.0 3.6-11.0 E3/mcL Low 03-23-2019 [facility] (14658) Comment: Performed By: #### [id number] #### MARCUS JeriHemo [address] [place] [address] bmp on 2019-03-23 Anion gap [Moles/Vol] 8 10-20 mEq/L Low 03-23-20 19 [facility] (93749) Comment: Performed By: #### [id number] #### MARCUS RemHemo [address] [place] [address] Calcium [Mass/Vol] 7.8 8.6-10.3 mg/dL Low 03-23-2019 [facility] (38743) Comment: Performed By: #### [id number] #### MARCUS RemHemo [address] [place] [address] Chloride [Moles/Vol] 111 98-107 mEq/L High 9 [facility] () Comment: Performed By: #### [id number] #### MARCUS RemHemo [address] [place] [address] CO2 [Moles/Vol] 22.0 21.0-32.0 mEq/L Normal 03-23-2019 [facility] (00 ) Comment: Performed By: #### [id number] #### MARCUS RemHemo [address] [place] [address] Creatinine [Mass/Vol] 1.1 0.5-1.1 mg/dL Normal 03-23-20 [facility] (00 000) Comment: Performed By: #### [id number] #### MARCUS RemHemo [facility] [place] [address] Glucose [Mass/Vol] 102 70-99 mg/dL High 03-23-2019 [facility] (27885) Comment: Performed By: #### [id number] #### MARCUS RemHemo [address] [place] [address] Potassium [Moles/Vol] 3.5 3.5-5.3 mEq/L Normal 03-23-20 19 [facility] (00 000) Comment: Performed By: #### [id number] #### MARCUS WilcoxHemo [facility] [place] [address] Sodium [Moles/Vol] 138 136-145 mEq/L Normal 03-23-2019 [facility] (00 000) Comment: Performed By: #### [id number] #### MARCUS RemHemo [address] [place] [address] Urea nitrogen [Mass/Vol] 9 6-23 mg/dL Normal 03-23 [facility] (00 000) Comment: Performed By: #### [id number] #### MARCUS RemHemo [address] [place] [address] Urea nitrogen/Creatinine 8.2 5.4-30.0 ratio Normal 03-23 [facility] [Mass ratio] [facility] (79877) Comment: Performed By: #### [id number] #### MARCUS RemHemo [address] [place] [address] .manual abs on 2019 -06-06 Basophil Abs Man 0.0 0.0-0.2 10x3/ Normal 03-23-2019 [facility] (14709) Comment: Order Comment: Order Added b y Discern Expert. Performed By: #### [id number] #### MARCUS WilcoxHemo [address] [place] [address] Eos Abs Man 0.0 0.0-0.5 10x3/ Normal 03-23-2019 [facility] (24703) Comment: Order Comment: Order Added b y Discern Expert. Performed By: #### [id number] #### MARCUS RemHemo [address] [place] [address] Lymph Abs Man 1.6 1.2-3.4 10x3/ Normal 03-23-2019 [facility] (08963) Comment: Order Comment: Order Added b y Discern Expert. Performed By: #### [id number] #### MARCUS JeriHemo [address] [place] [address] Cassia Abs Man 0.1 0.0-0.7 10x3/ Normal 03-23-2019 [facility] (52501) Comment: Order Comment: Order Added b y Discern Expert. Performed By: #### [id number] #### MARCUS WilcoxHemo [address] [place] [address] Segs Abs Man 1.3 1.4-6.5 10x3/ Low 03-23-2019 [facility] (91179) Comment: Order Comment: Order Added b y Discern Expert. Performed By: #### [id number] #### MARCUSShawn WilcoxHemo [facility] [place] [address] xr chest ap portable on 2019-03-22 XR Chest AP Exam Date/Time: Normal 03-22-2019 [facility] Portable 03/22/2019 20:26 EDT H [facility]alt System Reason for Exam: (00 000) Chest pain Report STUDY: XR Chest AP Portable; 03/22/2019 8:26 pm INDICATION: Chest pain. COMPARISON: 12/21/2018 ACCESSION NUMBER(S): [id number] ORDERING CLINICIAN: Xuan Garcia FINDINGS: Single portable [...] pm Signed by: Lacy Alvarez MD Technologist: [facility] troponin-i on 03-22 Troponin I.cardiac 0.01 0.00-0.03 ng/mL Normal 03-22-2019 [facility] [Mass/Vol] [facility] (96886) Comment: Performed By: #### [id number] #### MARCUS WilcoxHemo [facility] [id number] magnesium on 03-22 Magnesium [Mass/Vol] 1.6 1.6-2.4 mg/dL Normal 9 [facility] (00 000) Comment: Performed By: #### [id number] #### MARCUS RemHemo [address] [place] [address] egfr on 2019-03-22 GFR/1.73 sq M predicted >60 mL/min/{1.73_m2} Normal 03-22-2019 [facility] among non-blacks [facility] (55279) (S/P/Bld) [Vol rate/Area] Comment: Order Comment: Order Added b y Discern Expert. Performed By: #### [id number] #### MARCUS RemHemo [address] [place] [address] GFR/1.73 sq M predicted 52 mL/min/1.73 m2 Normal 0 03-22-2019 [facility] among non-blacks [facility] (55915) (S/P/Bld) [Vol rate/Area] Comment: Order Comment: Order Added b y Discern Expert. Performed By: #### [id number] #### MARCUS RemHemo [address] [place] [address] cbc w/ auto diff on 2019-03-22 Erythrocyte distribution 13.5 11.5-14.5 % Normal 03-22 [facility] width (RBC) [Ratio] [facility] System (11428) Comment: Performed By: #### [id number] #### MARCUSShawn WilcoxHemo [facility] [place] [address] Hematocrit (Bld) [Volume 37.5 36.0-48.0 % Normal 03-22 [facility] (21255) Comment: Performed By: #### [id number] #### MARCUSShawn WilcoxHemo [address] [place] [address] Hemoglobin (Bld) 12.8 12.0-16.0 G/DL Normal 03-22-2019 [facility] [Mass/Vol] Health [facility] (17826) Comment: Performed By: #### [id number] #### [facility]US [facility] [address] [place] [address] MCH (RBC) [Entitic mass] 30.9 27.0-31.0 pg Normal 03-22 [facility] (00 000) Comment: Performed By: #### [id number] #### [facility] [address] MCHC (RBC) [Mass/Vol] 34.1 33.0-37.0 G/DL Normal 03-22-20 19 [facility] (00 000) Comment: Performed By: #### [id number] #### [facility]US [facility] [address] [place] [address] MCV (RBC) [Entitic vol] 90.6 78.0-100.0 fL Normal 03-22 [facility] (61556) Comment: Performed By: #### [id number] #### [facility]US [facility] [address] [place] [address] Platelet mean volume 8.3 7.4-11.0 fL Normal 9 [facility] (Bld) [Entitic vol] System (84045) Comment: Performed By: #### [id number] #### [facility] [address] [place] [address] Platelets (Bld) [#/Vol] 113 130-400 E3/mcL Low 2018 [facility] (00 000) Comment: Performed By: #### [id number] #### MARCUS WilcoxHemo [address] [place] [address] RBC (Bld) [#/Vol] 4.14 3.90-5.40 E6/mcL Normal 03-22-2019 [facility] () Comment: Performed By: #### [id number] #### MARCUS WilcoxHemo [address] [place] [address] WBC (Bld) [#/Vol] 4.1 3.6-11.0 E3/mcL Normal 03-22-2019 [facility] () Comment: Performed By: #### [id number] #### MARCUS JeriHemo [facility] [place] [address] bmp on 2019-03-22 Anion gap [Moles/Vol] 13 10-20 mEq/L Normal 03-22-20 [facility] () Comment: Performed By: #### [id number] #### MARCUS JeriHemo [facility] [place] [address] Calcium [Mass/Vol] 8.4 8.6-10.3 mg/dL Low 03-22-2019 [facility] (63214) Comment: Performed By: #### [id number] #### MARCUS JeriHemo [facility] [place] [address] Chloride [Moles/Vol] 110 98-107 mEq/L High 9 [facility] () Comment: Performed By: #### [id number] #### MARCUS JeriHemo [address] [place] [address] CO2 [Moles/Vol] 21.0 21.0-32.0 mEq/L Normal 03-22-2019 [facility] () Comment: Performed By: #### [id number] #### MARCUS JeriHemo [address] [place] [address] Creatinine [Mass/Vol] 1.1 0.5-1.1 mg/dL Normal 03-22-20 [facility] (00 000) Comment: Performed By: #### [id number] #### MARCUS RemHemo [address] [place] [address] Glucose [Mass/Vol] 95 70-99 mg/dL Normal 03-22-2019 [facility] (11416) Comment: Performed By: #### [id number] #### MARCUS Kenyon[address] [address] Potassium [Moles/Vol] 4.0 3.5-5.3 mEq/L Normal 03-22-20 19 [facility] (00 000) Comment: Performed By: #### [id number] #### MARCUS Kenyon[address] [address] Sodium [Moles/Vol] 139 136-145 mEq/L Normal 03-22-2019 [facility] (00 000) Comment: Performed By: #### [id number] #### MARCUS Kenyon[address] [address] Urea nitrogen [Mass/Vol] 10 6-23 mg/dL Normal 03-22 [facility] (00 000) Comment: Performed By: #### [id number] #### MARCUS Kenyon[address] [address] Urea nitrogen/Creatinine 9.1 5.4-30.0 ratio Normal 03-22 [facility] [Mass ratio] [facility] (55595) Comment: Performed By: #### [id number] #### MARCUS Kenyon[address] [address] auto diff on 2019-0 6-05 Basophils (Bld) [#/Vol] 0.0 0.0-0.2 E3/mcL Normal 2018 [facility] (04321) Comment: Order Comment: Order Added b y Discern Expert. Performed By: #### [id number] #### MARCUS Kenyono [address] [place] [address] Basophils/100 WBC (Bld) 0.4 0.0-2.0 % Normal 2018 [facility] (00 000) Comment: Order Comment: Order Added b y Discern Expert. Performed By: #### [id number] #### MARCUS eKnyon[address] [address] Eos Absolute 0.1 0.0-0.7 E3/mcL Normal 03-22-2019 [facility] (97535) Comment: Order Comment: Order Added b y Discern Expert. Performed By: #### [id number] #### MARCUS WilcoxHemo [address] [place] [address] Eosinophils/100 WBC (Bld) 2.0 0.0-11.0 % Normal [facility] (00 000) Comment: Order Comment: Order Added b y Discern Expert. Performed By: #### [id number] #### MARCUS WilcoxHemo [address] [place] [address] Lymphocytes (Bld) [#/Vol] 1.1 1.2-3.4 E3/mcL Low [facility] (00 000) Comment: Order Comment: Order Added b y Discern Expert. Performed By: #### [id number] #### MARCUS Kenyono [address] [place] [address] Lymphocytes/100 WBC (Bld) 27.1 20.0-55.0 % Normal [facility] (16530) Comment: Order Comment: Order Added b y Discern Expert. Performed By: #### [id number] #### MARCUS WilcoxHemo [address] [place] [address] Cassia Absolute 0.5 0.0-0.7 E3/mcL Normal 03-22-2019 [facility] (01142) Comment: Order Comment: Order Added b y Discern Expert. Performed By: #### [id number] #### MARCUS WilcoxHemo [address] [place] [address] Monocytes/100 WBC (Bld) 11.0 0.0-10.0 % High 2018 [facility] (00 000) Comment: Order Comment: Order Added b y Discern Expert. Performed By: #### [id number] #### MARCUS WilcoxHemo [address] [place] [address] Neutro Absolute 2.5 1.4-6.5 E3/mcL Normal 03-22-2019 [facility] (65556) Comment: Order Comment: Order Added b y Discern Expert. Performed By: #### [id number] #### MARCUS Kenyono [address] [place] [address] Neutro Auto 59.5 37.0-75.0 % Normal 03-22-2019 [facility] (87736) Comment: Order Comment: Order Added erma lizama Discern Expert. Performed By: #### [id number] #### MARCUS Kenyoncorky [address] [place] [address] ua complete on 2018 Color (U) Yellow Yellow Normal 03-19-2019 [facility] (95537) Comment: Order Comment: Order Added b y Discern Expert. Performed By: #### [id number] #### MARCUS Kenyoncorky [address] [place] [address] Glucose (U) [Mass/Vol] Negative Negative mg/dL Normal [address] [place], [place] [address]s tem (61613) Comment: Order Comment: Order Added erma lizama Discern Expert. Performed By: #### [id number] #### MARCUS Kenyoncorky [address] [place] [address] Ketones Ql (U) Negative Negative Normal 03-19-2019 [facility] (78024) Comment: Order Comment: Order Added erma lizama Discern Expert. Performed By: #### [id number] #### MARCUS Kenyoncorky [address] [place] [address] RBC (U) [#/Vol] 0-3 0-3 Normal 03-19-2019 [facility] (49057) Comment: Order Comment: Order Added b y Discern Expert. Performed By: #### [id number] #### MARCUS Kenyono [address] [place] [address] UA Blood Negative Negative Normal 03-19-2019 [facility] (05069) Comment: Order Comment: Order Added b y Discern Expert. Performed By: #### [id number] #### MARCUS Kenyono [address] [place] [address] UA Clarity SltCloudy Clear Abnormal 03-19-2019 [facility] (00859) Comment: Order Comment: Order Added b y Discern Expert. Performed By: #### [id number] #### MARCUS JeriHemo [facility] [place] [address] UA Hyal Cast 3-5 0-2 Abnormal 03-19-2019 [facility] (89644) Comment: Order Comment: Order Added erma Aldana Expert. Performed By: #### [id number] #### MARCUSShawn Luong [address] [place] [address] UA Leuk Est 1+ Negative Abnormal 03-19-2019 [facility] (38754) Comment: Order Comment: Order Added emra Aldana Expert. Performed By: #### [id number] #### MARCUSShawn Luong [address] [place] [address] UA Mucous Trace Trace Abnormal 03-19-2019 [facility] (31955) Comment: Order Comment: Order Added erma Aldnaa Expert. Performed By: #### [id number] #### MARCUS Luong [address] [place] [address] UA Nitrite Negative Negative Normal 03-19-2019 [facility] (81213) Comment: Order Comment: Order Added erma Aldana Expert. Performed By: #### [id number] #### MARCUSShawn Luong [address] [place] [address] UA pH 5.0 4.6-8.0 Normal 03-19-2019 [facility] (64124) Comment: Order Comment: Order Added erma Aldana Expert. Performed By: #### [id number] #### MARCUSShawn Luong [address] [place] [address] UA Protein Negative Negative Normal 03-19-2019 [facility] (65105) Comment: Order Comment: Order Added erma Aldana Expert. Performed By: #### [id number] #### MARCUSShawn Luong [address] [place] [address] UA Spec Grav 1.010 1.003-1.030 Normal 03-19-2019 [facility] (74096) Comment: Order Comment: Order Added erma Aldana Expert. Performed By: #### [id number] #### MARCUSShawn Luong [address] [place], [place] [id number] UA Squam Epithelial 10-20 0-5 Abnormal 03-19-2019 [facility] (57784) Comment: Order Comment: Order Added erma Aldana Expert. Performed By: #### [id number] #### MARCUS Luong [address] [place] [address] UA Urobilinogen Negative Normal 03-19-2019 [facility] (92410) Comment: Order Comment: Order Added erma Aldana [...] laboratory within 24 hours. Performed By: #### [id number] #### MARCUS JeriHemo [address] [place] [address] UA WBC 0-5 0-5 Normal 03-19-2019 [facility] (29625) Comment: Order Comment: Order Added erma Aldana Expert. Performed By: #### [id number] #### MARCUS JeriKarlo [facility] [place] [address] Urobilinogen Qn (U) Negative Negative Normal 03-19-2019 [facility] (00 000) Comment: Order Comment: Order Added erma Aldana Expert. Performed By: #### [id number] #### MARCUS JeriHemo [facility] [place] [address] ionized calcium poc order on 2019-03-18 Ionized Calcium POC Order Collected Normal [facility] (00 000) Comment: Performed By: #### [id number] #### MARCUS JeriHemo [facility] [place] [address] ionized calcium lvl on 2019-03-18 Ionized Ca. 4.5 4.5-5.6 mg/dL Normal 03-18-2019 [facility] (25679) Comment: Performed By: #### [id number] #### MARCUS JeriHemo [facility] [place] [address] egfr on 2019-03-18 GFR/1.73 sq M predicted 56 mL/min/1.73 m2 Normal 0 03-18-2019 [facility] among non-blacks [facility] (26996) (S/P/Bld) [Vol rate/Area] Comment: Order Comment: Order Added erma Aldana Expert. Performed By: #### [id number] #### MARCUS RemHemo [address] [place] [address] GFR/1.73 sq M predicted 46 mL/min/1.73 m2 Normal 0 03-18-2019 [facility] among non-blacks [facility] (96341) (S/P/Bld) [Vol rate/Area] Comment: Order Comment: Order Added b y Discern Expert. Performed By: #### [id number] #### MARCUS RemHemo [address] [place] [address] ct head or brain w/o contrast on 2019-03-18 CT Head or Brain Exam Date/Time: Normal 019 [facility] w/o Contrast 03/18/2019 21:34 EDT Health System Reason for Exam: (00 000) Altered mental status Report STUDY: CT Head or Brain w/o Contrast; 03/18/2019 9:34 pm INDICATION: Altered mental status. COMPARISON: 03/16/2019 ACCESSION NUMBER(S): [id number] ORDERING CLINICIAN: Ac Gao TECHNIQUE: Noncontrast CT [...] distribution 14.1 11.5-14.5 % Normal 03-18 [facility] width (RBC) [Ratio] Health System (68501) Comment: Performed By: #### [id number] #### MARCUS Kenyono [facility] [place] [address] Hematocrit (Bld) [Volume 40.4 36.0-48.0 % Normal 03-18 [facility] tem (52577) Comment: Performed By: #### [id number] #### MARCUS WilcoxHemo [facility] [place] [address] Hemoglobin (Bld) 13.4 12.0-16.0 G/DL Normal 03-18-2019 [facility] [Mass/Vol] Health Sy stem (19573) Comment: Performed By: #### [id number] #### MARCUS WilcoxHemo [facility] [place] [address] MCH (RBC) [Entitic mass] 30.2 27.0-31.0 pg Normal 03-18 [facility] (00 000) Comment: Performed By: #### [id number] #### MARCUSShawn WilcoxHemo [address] [place] [address] MCHC (RBC) [Mass/Vol] 33.1 33.0-37.0 G/DL Normal 03-18-20 19 [facility] (00 000) Comment: Performed By: #### [id number] #### MARCUSShawn WilcoxHemo [address] [place] [address] MCV (RBC) [Entitic vol] 91.3 78.0-100.0 fL Normal 03-18 [facility] tem (34548) Comment: Performed By: #### [id number] #### MARCUSShawn WilcoxHemo [address] [place] [address] Platelet mean volume 8.0 7.4-11.0 fL Normal 9 [facility] (Bld) [Entitic vol] System (19199) Comment: Performed By: #### [id number] #### MARCUSShawn WilcoxHemo [facility] [place] [address] Platelets (Bld) [#/Vol] 123 130-400 E3/mcL Low 2018 [facility] (00 000) Comment: Performed By: #### [id number] #### [facility]US [facility] [place] [address] RBC (Bld) [#/Vol] 4.43 3.90-5.40 E6/mcL Normal 03-18-2019 [facility] () Comment: Performed By: #### [id number] #### MARCUS JeriHemo [address] [place] [address] WBC (Bld) [#/Vol] 4.3 3.6-11.0 E3/mcL Normal 03-18-2019 [facility] () Comment: Performed By: #### [id number] #### MARCUS RemHemo [address] [place] [address] bmp on 2019-03-18 Anion gap [Moles/Vol] 11 10-20 mEq/L Normal 03-18-20 [facility] () Comment: Performed By: #### [id number] #### MARCUS JeriHemo [facility] [place] [address] Calcium [Mass/Vol] 8.8 8.6-10.3 mg/dL Normal 03-18-2019 [facility] () Comment: Performed By: #### [id number] #### MARCUS RemHemo [address] [place] [address] Chloride [Moles/Vol] 110 98-107 mEq/L High [facility] () Comment: Performed By: #### [id number] #### MARCUS JeriHemo [address] [place] [address] CO2 [Moles/Vol] 20.0 21.0-32.0 mEq/L Low 03-18-2019 [facility] (47297) Comment: Performed By: #### [id number] #### MARCUS RemHemo [address] [place] [address] Creatinine [Mass/Vol] 1.2 0.5-1.1 mg/dL High 03-18-20 [facility] ( 000) Comment: Performed By: #### [id number] #### MARCUS RemHemo [address] [place] [address] Glucose [Mass/Vol] 90 70-99 mg/dL Normal 03-18-2019 [facility] (79106) Comment: Performed By: #### [id number] #### MARCUS Kenyono [facility] [place] [address] Potassium [Moles/Vol] 4.0 3.5-5.3 mEq/L Normal 03-18-20 19 [facility] (00 000) Comment: Performed By: #### [id number] #### MARCUSShawn Kenyono [facility] [place] [address] Sodium [Moles/Vol] 137 136-145 mEq/L Normal 03-18-2019 [facility] (00 000) Comment: Performed By: #### [id number] #### MARCUSShawn Kenyono [address] [place] [address] Urea nitrogen [Mass/Vol] 9 6-23 mg/dL Normal 03-18 [facility] (00 000) Comment: Performed By: #### [id number] #### MARCUSShawn Wilcox[address] [address] Urea nitrogen/Creatinine 7.5 5.4-30.0 ratio Normal 03-18 [facility] [Mass ratio] [facility] (50109) Comment: Performed By: #### [id number] #### MARCUSShawn Kenyon[address] [address] auto diff on 6- Basophils (Bld) [#/Vol] 0.0 0.0-0.2 E3/mcL Normal 2018 [facility] (83708) Comment: Order Comment: Order Added b y Discern Expert. Performed By: #### [id number] #### MARCUSShawn Kenyono [address] [place] [address] Basophils/100 WBC (Bld) 0.5 0.0-2.0 % Normal 2018 [facility] (00 000) Comment: Order Comment: Order Added b y Discern Expert. Performed By: #### [id number] #### MARCUS Kenyono [facility] [place] [address] Eos Absolute 0.1 0.0-0.7 E3/mcL Normal 03-18-2019 [facility] (02626) Comment: Order Comment: Order Added b y Discern Expert. Performed By: #### [id number] #### MARCUS WilcoxHemo [address] [place] [address] Eosinophils/100 WBC (Bld) 2.2 0.0-11.0 % Normal [facility] (00 000) Comment: Order Comment: Order Added b y Discern Expert. Performed By: #### [id number] #### MARCUS WilcoxHemo [facility] [place] [address] Lymphocytes (Bld) [#/Vol] 1.3 1.2-3.4 E3/mcL Normal [facility] tem (74619) Comment: Order Comment: Order Added b y Discern Expert. Performed By: #### [id number] #### MARCUS WilcoxHemo [address] [place] [address] Lymphocytes/100 WBC (Bld) 30.1 20.0-55.0 % Normal [facility] tem (50259) Comment: Order Comment: Order Added b y Discern Expert. Performed By: #### [id number] #### MARCUS RemHemo [address] [place] [address] Cassia Absolute 0.4 0.0-0.7 E3/mcL Normal 03-18-2019 [facility] (23672) Comment: Order Comment: Order Added b y Discern Expert. Performed By: #### [id number] #### MARCUS WilcoxHemo [address] [place] [address] Monocytes/100 WBC (Bld) 9.9 0.0-10.0 % Normal 2018 [facility] (00 000) Comment: Order Comment: Order Added b y Discern Expert. Performed By: #### [id number] #### MARCUS RemHemo [address] [place] [address] Neutro Absolute 2.5 1.4-6.5 E3/mcL Normal 03-18-2019 [facility] (08374) Comment: Order Comment: Order Added b y Discern Expert. Performed By: #### [id number] #### [facility] RemHemo [address] [place] [address] Neutro Auto 57.3 37.0-75.0 % Normal 03-18-2019 [facility] (48432) Comment: Order Comment: Order Added erma Aldana Expert. Performed By: #### [id number] #### MARCUS WilcoxBTI Systemso [address] [place], [place] [id number] lactic acid on 2018 Lactate [Moles/Vol] 1.2 0.4-2.0 mmol/L Normal 03-16-2019 [facility] (00 000) Comment: Performed By: #### [id number] #### [place]US [place] [id number] egfr on 2019-03-16 GFR/1.73 sq M predicted 58 mL/min/1.73 m2 Normal 0 03-16-2019 [facility] non-blacks [facility] (77147) (S/P/Bld) [Vol rate/Area] Comment: Order Comment: Order Added erma y Katya Expert. Performed By: #### [id number] #### [place] [address] GFR/1.73 sq M predicted 48 mL/min/1.73 m2 Normal 0 03-16-2019 [facility] non-[facility] (12521) (S/P/Bld) [Vol rate/Area] Comment: Order Comment: Order Added erma Aldana Expert. Performed By: #### [id number] #### [place] [address] [place] spine cervical w/o contrast on 2019-03-16 CT Spine Exam Date/Time: Normal 03-16-2019 [facility] Cervical w/o 03/16/2019 00:[address] [facility] Contrast Reason for Exam: Sys tem (10556) Trauma Report STUDY: CT Spine Cervical w/o Contrast; 03/16/2019 12:46 am INDICATION: Trauma. COMPARISON: None. ACCESSION NUMBER(S): [id number] ORDERING CLINICIAN: Caren Lozano TECHNIQUE: Axial noncontrast [...] CT Head or Brain Exam Date/Time: Normal [address] [place] [address] w/o Contrast 03/16/2019 00:08 [facility] Health System Reason for Exam: (00 000) Injury Report STUDY: CT Head or Brain w/o Contrast; 03/16/2019 12:46 am INDICATION: Injury. COMPARISON: 12/01/2018 ACCESSION NUMBER(S): [id number] ORDERING CLINICIAN: Caren Lozano TECHNIQUE: Noncontrast CT [...] Albumin [Mass/Vol] 4.2 3.4-5.0 gm/dL Normal 03-16-2019 [facility] (00 000) Comment: Performed By: #### [id number] #### MARCUS RemHemo [address] [place] [address] Albumin/Globulin [Mass 1.7 1.1-1.9 ratio Normal 019 [facility] (03159) Comment: Performed By: #### [id number] #### MARCUS RemHemo [address] [place] [address] Alk Phos 104 33-110 Int._Unit/L Normal 03-16-2019 [facility] (20266) Comment: Performed By: #### [id number] #### MARCUS RemHemo [address] [place] [address] ALT [Catalytic 31 7-45 Int._Unit/L Normal 03-16-2019 [facility] (69945) Comment: Performed By: #### [id number] #### MARCUS RemHemo [address] [place] [address] Anion gap [Moles/Vol] 12 10-20 mEq/L Normal 03-16-20 19 [facility] (00 000) Comment: Performed By: #### [id number] #### MARCUS RemHemo [address] [place] [address] AST [Catalytic 37 9-39 Int._Unit/L Normal 03-16-2019 [facility] (09754) Comment: Performed By: #### [id number] #### MARCUS RemHemo [address] [place] [address] Bili Total 0.79 0.00-1.20 mg/dL Normal 03-16-2019 [facility] (81862) Comment: Performed By: #### [id number] #### MARCUS RemHemo [address] [place] [address] Calcium [Mass/Vol] 8.8 8.6-10.3 mg/dL Normal 03-16-2019 [facility] (00 000) Comment: Performed By: #### [id number] #### MARCUS RemHemo [address] [place] [address] Chloride [Moles/Vol] 110 98-107 mEq/L High 9 [facility] (00 000) Comment: Performed By: #### [id number] #### MARCUS WilcoxHemo [address] [place] [address] CO2 [Moles/Vol] 20.0 21.0-32.0 mEq/L Low 03-16-2019 [facility] (43054) Comment: Performed By: #### [id number] #### MARCUS WilcoxHemo [address] [place] [address] Creatinine [Mass/Vol] 1.2 0.5-1.1 mg/dL High 03-16-20 [facility] ( 000) Comment: Performed By: #### [id number] #### MARCUS RemHemo [facility] [place] [address] Globulin (S) [Mass/Vol] 3.0 2.0-4.0 G/DL Normal 2018 [facility] () Comment: Performed By: #### [id number] #### MARCUS WilcoxHemo [facility] [place] [address] Glucose [Mass/Vol] 114 70-99 mg/dL High 03-16-2019 [facility] (59199) Comment: Performed By: #### [id number] #### MARCUS WilcoxHemo [facility] [place] [address] Potassium [Moles/Vol] 3.4 3.5-5.3 mEq/L Low 03-16-20 [facility] ( 000) Comment: Performed By: #### [id number] #### MARCUS WilcoxHemo [facility] [place] [address] Protein [Mass/Vol] 6.7 6.4-8.2 gm/dL Normal 03-16-2019 [facility] ( 000) Comment: Performed By: #### [id number] #### MARCUS RemHemo [address] [place] [address] Sodium [Moles/Vol] 139 136-145 mEq/L Normal 03-16-2019 [facility] ( 000) Comment: Performed By: #### [id number] #### MARCUS RemHemo [facility] [place] [address] Urea nitrogen [Mass/Vol] 9 6-23 mg/dL Normal 03-16 [facility] (00 000) Comment: Performed By: #### [id number] #### MARCUS WilcoxHemo [facility] [place] [address] Urea nitrogen/Creatinine 7.5 5.4-30.0 ratio Normal 03-16 [facility] [Mass ratio] Health System (57808) Comment: Performed By: #### [id number] #### MARCUS WilcoxHemo [facility] [place] [address] cbc w/ auto diff on 2019-03-16 Erythrocyte distribution 13.9 11.5-14.5 % Normal 03-16 [facility] width (RBC) [Ratio] Health System (79821) Comment: Performed By: #### [id number] #### MARCUS JeriHemo [address] [place] [address] Hematocrit (Bld) [Volume 40.6 36.0-48.0 % Normal 03-16 [facility]] Health Sys tem (96523) Comment: Performed By: #### [id number] #### MARCUS JeriHemo [address] [place] [address] Hemoglobin (Bld) 13.5 12.0-16.0 G/DL Normal 03-16-2019 [facility] [Mass/Vol] Health Sy stem (18849) Comment: Performed By: #### [id number] #### MARCUS WilcoxHemo [facility] [place] [address] MCH (RBC) [Entitic mass] 30.4 27.0-31.0 pg Normal 03-16 [facility] (00 000) Comment: Performed By: #### [id number] #### MARCUS RemHemo [facility] [place] [address] MCHC (RBC) [Mass/Vol] 33.3 33.0-37.0 G/DL Normal 03-16-20 19 [facility] (00 000) Comment: Performed By: #### [id number] #### MARCUSShawn WilcoxHemo [facility] [place] [address] MCV (RBC) [Entitic vol] 91.4 78.0-100.0 fL Normal 03-16 [facility] (56071) Comment: Performed By: #### [id number] #### MARCUS Kenyono [facility] [place] [address] Platelet mean volume 8.3 7.4-11.0 fL Normal 9 [facility] (Bld) [Entitic vol] System (44416) Comment: Performed By: #### [id number] #### MARCUS Kenyono [address] [place] [address] Platelets (Bld) [#/Vol] 118 130-400 E3/mcL Low 2018 [facility] ( 000) Comment: Performed By: #### [id number] #### MARCUS Kenyono [address] [place] [address] RBC (Bld) [#/Vol] 4.45 3.90-5.40 E6/mcL Normal 03-16-2019 [facility] () Comment: Performed By: #### [id number] #### MARCUSShawn Wilcox[address] [address] WBC (Bld) [#/Vol] 4.4 3.6-11.0 E3/mcL Normal 03-16-2019 [facility] () Comment: Performed By: #### [id number] #### MARCUS Kenyon[address] [address] auto diff on 2019-0 5-30 Basophils (Bld) [#/Vol] 0.0 0.0-0.2 E3/mcL Normal 2018 [facility] (31270) Comment: Order Comment: Order Added b y Discern Expert. Performed By: #### [id number] #### MARCUS WilcoxHemo [facility] [place] [address] Basophils/100 WBC (Bld) 0.9 0.0-2.0 % Normal 2018 [facility] (00 000) Comment: Order Comment: Order Added b y Discern Expert. Performed By: #### [id number] #### MARCUS WilcoxHemo [address] [place] [address] Eos Absolute 0.1 0.0-0.7 E3/mcL Normal 03-16-2019 [facility] (93729) Comment: Order Comment: Order Added b y Discern Expert. Performed By: #### [id number] #### MARCUS WilcoxHemo [address] [place] [address] Eosinophils/100 WBC (Bld) 2.6 0.0-11.0 % Normal 02-17 [facility] (00 000) Comment: Order Comment: Order Added b y Discern Expert. Performed By: #### [id number] #### MARCUS RemHemo [address] [place] [address] Lymphocytes (Bld) [#/Vol] 1.0 1.2-3.4 E3/mcL Low 02-17 [facility] (00 000) Comment: Order Comment: Order Added b y Discern Expert. Performed By: #### [id number] #### MARCUS WilcoxHemo [address] [place] [address] Lymphocytes/100 WBC (Bld) 23.0 20.0-55.0 % Normal 02-17 [facility] (92162) Comment: Order Comment: Order Added b y Discern Expert. Performed By: #### [id number] #### MARCUS WilcoxHemo [address] [place] [address] Cassia Absolute 0.3 0.0-0.7 E3/mcL Normal 03-16-2019 [facility] (91367) Comment: Order Comment: Order Added b y Discern Expert. Performed By: #### [id number] #### MARCUS WilcoxHemo [address] [place] [address] Monocytes/100 WBC (Bld) 6.8 0.0-10.0 % Normal 2018 [facility] (00 000) Comment: Order Comment: Order Added b y Discern Expert. Performed By: #### [id number] #### MARCUS WilcoxHemo [address] [place] [address] Neutro Absolute 2.9 1.4-6.5 E3/mcL Normal 03-16-2019 [facility] (16346) Comment: Order Comment: Order Added b y Discern Expert. Performed By: #### [id number] #### MARCUS RemHemo [address] [place] [address] Neutro Auto 66.7 37.0-75.0 % Normal 03-16-2019 [facility] (46646) Comment: Order Comment: Order Added erma Aldana Expert. Performed By: #### [id number] #### MARCUS RemHemo [address] [place] [address] No panel information on 2019-03-16 Aleksey Longoria MD 03-16-2019 [facility] 03/16/2019 4:19 PM ( 99305) [facility] EEG Report Reason for EEG: Seizures. Summary: [...] conc 84 65 - 99 mg/dL 03-16-2019 [facility] (17354) Interpretation and Normal 03-16-2019 [facility] review of (91263) laboratory results Interpretation and Abnormal 03-16-2019 [facility] review of (65661) laboratory results Valproate mass conc <3 OTH - ug/mL Low 03-16-2019 [facility] OTH (00093) Cobalamin (Vitamin 354 193 - pg/mL 03-16-2019 [facility] B12) mass conc 986 (4321 5) Folate mass conc 6.9 3.1 - ng/mL 03-16-2019 [facility] (51337) Comment: Deficient <2.2 Borderline 2.2 - 3.0 Excessive >17.5 Interpretation and Normal 03-16-2019 [facility] review of laboratory (74558) results Interpretation and Normal 03-16-2019 [facility] review of laboratory (24417) results Thyrotropin Qn 2.12 OTH - OTH m[IU]/L 03-16-2019 [facility] (76688) This order has 03-16-2019 [facility] been (21301) auto-finalized and does not contain a result. This order has 03-16-2019 [facility] (73342) auto-finalized and does not contain a result. ua complete on 2018 Color (U) Yellow Normal 03-11-2019 [facility] (87194) Comment: Performed By: #### [id number] #### MARCUS RemHemo [address] [place] [address] Glucose (U) [Mass/Vol] Negative Negative mg/dL Normal 019 [facility] (06249) Comment: Performed By: #### [id number] #### MARCUS RemHemo [address] [place] [address] Ketones Ql (U) Negative Negative Normal 03-11-2019 [facility] (19630) Comment: Performed By: #### [id number] #### MARCUS RemHemo [address] [place] [address] RBC (U) [#/Vol] 0-3 0-3 Normal 03-11-2019 [facility] (53150) Comment: Performed By: #### [id number] #### MARCUS RemHemo [address] [place] [address] UA Blood Negative Negative Normal 03-11-2019 [facility] (67428) Comment: Performed By: #### [id number] #### MARCUS RemHemo [address] [place] [address] UA Bacteria Trace None Abnormal 03-11-2019 [facility] (68306) Comment: Performed By: #### [id number] #### MARCUS RemHemo [facility] [place] [address] UA Clarity Clear Clear Normal 03-11-2019 [facility] (30536) Comment: Performed By: #### [id number] #### MARCUS RemHemo [address] [place] [address] UA Leuk Est Negative Negative Normal 03-11-2019 [facility] (48410) Comment: Performed By: #### [id number] #### MARCUS RemHemo [address] [place] [address] UA Mucous Trace Trace Abnormal 03-11-2019 [facility] (84280) Comment: Performed By: #### [id number] #### MARCUS WilcoxHemo [address] [place] [address] UA Nitrite Negative Negative Normal 03-11-2019 [facility] (38447) Comment: Performed By: #### [id number] #### MARCUS Kenyono [facility] [place] [address] UA pH 5.0 4.6-8.0 Normal 03-11-2019 [facility] (08351) Comment: Performed By: #### [id number] #### MARCUS WilcoxHemo [facility] [place] [address] UA Protein Negative Negative Normal 03-11-2019 [facility] (65197) Comment: Performed By: #### [id number] #### MARCUS WilcoxHemo [facility] [place] [address] UA Spec Grav 1.012 1.003-1.030 Normal 03-11-2019 [facility] (47046) Comment: Performed By: #### [id number] #### MARCUS WilcoxHemo [address] [place] [address] UA Squam Epithelial 10-20 0-5 Abnormal 03-11-2019 [facility] (08754) Comment: Performed By: #### [id number] #### MARCUS WilcoxHemo [address] [place] [address] UA Urobilinogen Negative Normal 03-11-2019 [facility] (30055) Comment: Result Comment: Due to a man ufacturing issue, low positive urobilinogen results may be fasely positi ve. Correlate with urine bilirubin and additional clinical/laborato ry findings to assess the risk of hemolytic anemia or liver disease. If clinically indicated, repeat testing with an alternate method is availabl e by contacting the laboratory within 24 hours. Performed By: #### [id number] #### MARCUS WilcoxHemo [facility] [place] [address] UA WBC 0-5 0-5 Normal 03-11-2019 [facility] (26018) Comment: Performed By: #### [id number] #### MARCUS WilcoxHemo [facility] [place] [address] Urobilinogen Qn (U) Negative Negative Normal 03-11-2019 [facility] (00 000) Comment: Performed By: #### [id number] #### MARCUS Kenyono [facility] [place] [address] troponin-i on 03-11 Troponin I.cardiac 0.01 0.00-0.03 ng/mL Normal 03-11-2019 [facility] [Mass/Vol] Health [facility] (70793) Comment: Performed By: #### [id number] #### MARCUS Kenyono [facility] [place] [address] egfr on 2019-03-11 GFR/1.73 sq M predicted 58 mL/min/1.73 m2 Normal 0 03-11-2019 [facility] among non-blacks [facility] (56496) (S/P/Bld) [Vol rate/Area] Comment: Order Comment: Order Added b y Katya Expert. Performed By: #### [id number] #### [place]ARCUS [place] [id number] GFR/1.73 sq M predicted 48 mL/min/1.73 m2 Normal 0 03-11-2019 [facility] among non-blacks [facility] (81273) (S/P/Bld) [Vol rate/Area] Comment: Order Comment: Order Added b y Katya Expert. Performed By: #### [id number] #### MARCUS Kenyono [facility] [place] [address] cbc w/ auto diff on 2019-03-11 Erythrocyte distribution 13.9 11.5-14.5 % Normal 03-11 [facility] width (RBC) [Ratio] Health System (92896) Comment: Performed By: #### [id number] #### MARCUS WilcoxHemo [facility] [place] [address] Hematocrit (Bld) [Volume 37.4 36.0-48.0 % Normal 03-11 [facility] fraction] Health Sys tem (75572) Comment: Performed By: #### [id number] #### MARCUS WilcoxHemo [facility] [place] [address] Hemoglobin (Bld) 12.4 12.0-16.0 G/DL Normal 03-11-2019 [facility] [Mass/Vol] Health [facility] (77114) Comment: Performed By: #### [id number] #### MARCUS WilcoxHemo [facility] [place] [address] MCH (RBC) [Entitic mass] 30.2 27.0-31.0 pg Normal 03-11 [facility] () Comment: Performed By: #### [id number] #### MARCUS WilcoxKarlo [address] [place] [address] MCHC (RBC) [Mass/Vol] 33.1 33.0-37.0 G/DL Normal 03-11-20 19 [facility] () Comment: Performed By: #### [id number] #### MARCUS JeriHemo [facility] [place] [address] MCV (RBC) [Entitic vol] 91.2 78.0-100.0 fL Normal 03-11 [facility] (64362) Comment: Performed By: #### [id number] #### MARCUS JeriHemo [address] [place] [address] Platelet mean volume 8.1 7.4-11.0 fL Normal 9 [facility] (Bld) [Entitic vol] System (88767) Comment: Performed By: #### [id number] #### MARCUS WilcoxHemo [facility] [place] [address] Platelets (Bld) [#/Vol] 120 130-400 E3/mcL Low 2018 [facility] () Comment: Performed By: #### [id number] #### MARCUS JeriHemo [address] [place] [address] RBC (Bld) [#/Vol] 4.11 3.90-5.40 E6/mcL Normal 03-11-2019 [facility] () Comment: Performed By: #### [id number] #### MARCUSShawn WilcoxHemo [facility] [place] [address] WBC (Bld) [#/Vol] 3.6 3.6-11.0 E3/mcL Normal 03-11-2019 [facility] () Comment: Performed By: #### [id number] #### MARCUS RemHemo [address] [place] [address] bmp on 2019-03-11 Anion gap [Moles/Vol] 11 10-20 mEq/L Normal 03-11-20 [facility] () Comment: Performed By: #### [id number] #### MARCUS RemHemo [address] [place] [address] Calcium [Mass/Vol] 8.4 8.6-10.3 mg/dL Low 03-11-2019 [facility] (44281) Comment: Performed By: #### [id number] #### MARCUS RemHemo [address] [place] [address] Chloride [Moles/Vol] 110 98-107 mEq/L High [facility] () Comment: Performed By: #### [id number] #### MARCUS RemHemo [address] [place] [address] CO2 [Moles/Vol] 19.0 21.0-32.0 mEq/L Low 03-11-2019 [facility] (85244) Comment: Performed By: #### [id number] #### MARCUS RemHemo [address] [place] [address] Creatinine [Mass/Vol] 1.2 0.5-1.1 mg/dL High 03-11-20 [facility] ( 000) Comment: Performed By: #### [id number] #### MARCUS RemHemo [address] [place] [address] Glucose [Mass/Vol] 88 70-99 mg/dL Normal 03-11-2019 [facility] (30320) Comment: Performed By: #### [id number] #### MARCUS RemHemo [address] [place] [address] Potassium [Moles/Vol] 3.8 3.5-5.3 mEq/L Normal 03-11-20 [facility] ( 000) Comment: Performed By: #### [id number] #### MARCUS RemHemo [address] [place] [address] Sodium [Moles/Vol] 136 136-145 mEq/L Normal 03-11-2019 [facility] () Comment: Performed By: #### [id number] #### MARCUS WilcoxHemo [address] [place] [address] Urea nitrogen [Mass/Vol] 12 6-23 mg/dL Normal 03-11 [facility] () Comment: Performed By: #### [id number] #### MARCUSShawn Wilcox[address] [address] Urea nitrogen/Creatinine 10.0 5.4-30.0 ratio Normal 03-11 [facility] [Mass ratio] [facility] (77248) Comment: Performed By: #### [id number] #### [address] [address] auto diff on 03-11 Basophils (Bld) [#/Vol] 0.0 0.0-0.2 E3/mcL Normal 2018 [facility] () Comment: Order Comment: Order Added b y Discern Expert. Performed By: #### [id number] #### MARCUS WilcoxHemo [address] [place] [address] Basophils/100 WBC (Bld) 0.3 0.0-2.0 % Normal 2018 [facility] () Comment: Order Comment: Order Added b y Discern Expert. Performed By: #### [id number] #### MARCUS WilcoxHemo [address] [place] [address] Eos Absolute 0.1 0.0-0.7 E3/mcL Normal 03-11-2019 [facility] () Comment: Order Comment: Order Added b y Discern Expert. Performed By: #### [id number] #### [facility] [address] [place] [address] Eosinophils/100 WBC (Bld) 3.7 0.0-11.0 % Normal 02-16 [facility] () Comment: Order Comment: Order Added b y Discern Expert. Performed By: #### [id number] #### [facility] [address] [place] [address] Lymphocytes (Bld) [#/Vol] 1.0 1.2-3.4 E3/mcL Low 02-16 [facility] (00 000) Comment: Order Comment: Order Added erma lizama Discern Expert. Performed By: #### [id number] #### MARCUS WilcoxHemo [address] [place] [address] Lymphocytes/100 WBC (Bld) 28.2 20.0-55.0 % Normal 02-16 [facility] (74970) Comment: Order Comment: Order Added b y Discern Expert. Performed By: #### [id number] #### MARCUS JeriHemo [address] [place] [address] Cassia Absolute 0.3 0.0-0.7 E3/mcL Normal 03-11-2019 [facility] (95570) Comment: Order Comment: Order Added b y Discern Expert. Performed By: #### [id number] #### MARCUSShawn WilcoxHemo [address] [place] [address] Monocytes/100 WBC (Bld) 8.9 0.0-10.0 % Normal 2018 [facility] (00 000) Comment: Order Comment: Order Added b y Discern Expert. Performed By: #### [id number] #### MARCUS WilcoxHemo [facility] [place] [address] Neutro Absolute 2.1 1.4-6.5 E3/mcL Normal 03-11-2019 [facility] (12473) Comment: Order Comment: Order Added b y Discern Expert. Performed By: #### [id number] #### MARCUSShawn WilcoxHemo [address] [place] [address] Neutro Auto 58.9 37.0-75.0 % Normal 03-11-2019 [facility] (02682) Comment: Order Comment: Order Added b y Discern Expert. Performed By: #### [id number] #### MARCUSShawn WilcoxHemo [address] [place] [address] No panel information on 2019-03-08 Ammonia mass conc 30 OTH - OTH ug/dL 03-08-2019 [facility] ([facility]) (48369) Interpretation and Normal 03-08-2019 [facility] review of laboratory (73322) results Interpretation and Normal 03-08-2019 [facility] review of laboratory (56880) results Thyrotropin Qn 2.54 OTH - OTH m[IU]/L 03-08-2019 [facility] (44685) Albumin mass conc 3.6 3.2 - 5.2 g/dL 03-08-2019 [facility] (27151) ALP enzyme act/vol 99 40 - 150 U/L 03-08-2019 [facility] (59311) ALT enzyme act/vol 31 14 - 65 U/L 03-08-2019 [facility] (55312) Anion gap molar conc 12 10 - 20 mmol/L 9 [facility] (23506) AST enzyme act/vol 29 0 - 45 U/L 03-08-2019 [facility] (98062) Bilirubin mass conc 0.6 0 - 1.3 mg/dL 03-08-2019 [facility] (32069) Calcium mass conc 8.4 8.4 - mg/dL 03-08-2019 [facility] 10.2 (92506) Chloride molar conc 114 98 - 108 mmol/L High 03-08-2019 [facility] (02878) Creatinine mass conc 1.31 0.4 - 1.1 mg/dL High 9 [facility] (32250) GFR/1.73 sq M The eGFR should 03-08-2019 [facility] predicted among be used for (4 0077) non-blacks MDRD vol monitoring renal rate/area (S/P/Bld) function only and not for medication dosing. GFR/1.73 sq 49 >=60 Low 03-08-2019 [facility]-EPI mL/min/1. (99209) vol rate/area 73 m2 (S/P/Bld) Glucose mass conc 94 65 - 99 mg/dL 03-08-2019 [facility] (07398) HCO3 molar conc 20 21 - 32 mmol/L Low 03-08-2019 [facility] (14275) Interpretation and Abnormal 03-08-2019 [facility] review of laboratory (79649) results Potassium molar conc 4.1 3.5 - 5.1 mmol/L 9 [facility] (74001) Protein mass conc 7.2 6 - 8 g/dL 03-08-2019 [facility] (84673) Sodium molar conc 142 135 - 145 mmol/L 03-08-2019 [facility] (42951) Urea nitrogen mass 16 8 - 25 mg/dL 03-08-2019 [facility] conc (07391) Urea 12.2 OTH - OTH mg/mg [facility] (51492) mass ratio Valproate mass conc 4 OTH - OTH ug/mL Low 03-08-2019 [facility] (01461) egfr on 2019-02-24 GFR/1.73 sq M predicted 43 mL/min/1.73 m2 Normal 0 02-24-2019 [facility] among non-blacks [facility] (28922) (S/P/Bld) [Vol rate/Area] Comment: Order Comment: Order Added erma Aldana Expert. Performed By: #### [id number] #### MARCUS Kenyono [facility] [place] [address] GFR/1.73 sq M predicted 52 mL/min/1.73 m2 Normal 0 02-24-2019 [facility] among non-blacks [facility] (56345) (S/P/Bld) [Vol rate/Area] Comment: Order Comment: Order Added erma Aldana Expert. Performed By: #### [id number] #### MARCUS WilcoxHemo [address] [place] [address] bmp on 2019-02-24 Anion gap [Moles/Vol] 12 10-20 mEq/L Normal 02-25-20 19 [facility] (00 000) Comment: Performed By: #### [id number] #### MARCUS WilcoxHemo [facility] [place] [address] Calcium [Mass/Vol] 8.9 8.6-10.3 mg/dL Normal 02-24-2019 [facility] (00 000) Comment: Performed By: #### [id number] #### MARCUS WilcoxHemo [address] [place] [address] Chloride [Moles/Vol] 110 98-107 mEq/L High 9 [facility] (00 000) Comment: Performed By: #### [id number] #### MARCUS RemHemo [address] [place] [address] CO2 [Moles/Vol] 21.0 21.0-32.0 mEq/L Normal 02-24-2019 [facility] (00 000) Comment: Performed By: #### [id number] #### MARCUSShawn WilcoxHemo [facility] [place] [address] Creatinine [Mass/Vol] 1.3 0.5-1.1 mg/dL High 02-25-20 [facility] (00 000) Comment: Performed By: #### [id number] #### MARCUSShawn WilcoxHemo [facility] [place] [address] Glucose [Mass/Vol] 89 70-99 mg/dL Normal 02-24-2019 [facility] (79065) Comment: Performed By: #### [id number] #### MARCUSShawn WilcoxHemo [facility] [place] [address] Potassium [Moles/Vol] 4.5 3.5-5.3 mEq/L Normal 02-25-20 [facility] () Comment: Performed By: #### [id number] #### MARCUSShawn WilcoxHemo [address] [place] [address] Sodium [Moles/Vol] 138 136-145 mEq/L Normal 02-24-2019 [facility] ( 000) Comment: Performed By: #### [id number] #### MARCUS Kostaso [address] [place] [address] Urea nitrogen [Mass/Vol] 15 6-23 mg/dL Normal 02-24 [facility] (00 000) Comment: Performed By: #### [id number] #### MARCUSShawn WilcoxHemo [facility] [place] [address] Urea nitrogen/Creatinine 11.5 5.4-30.0 ratio Normal 02-24 [facility] [Mass ratio] [facility] (65323) Comment: Performed By: #### [id number] #### MARCUS JeriHemo [facility] [place] [address] zzplt morph on 2018 Platelet morphology finding NORMAL Normal [facility] (d) [facility] (00 000) Comment: Performed By: #### [id number] #### MARCUSShawn WilcoxHemo [address] [place] [address] Platelets (Bld) [#/Vol] DECREASED Normal 2018 [facility] (00 000) Comment: Performed By: #### [id number] #### MARCUS Kenyono [address] [place] [address] manual diff on 2018 Band form neutrophils/100 WBC 9 0-1 High 02-23-2019 [facility] (d) System (00 000) Comment: Order Comment: Order Added b y Discern Expert. Performed By: #### [id number] #### MARCUS WilcoxHemo [address] [place] [address] Basophil Man 0 0-1 % Normal 02-23-2019 [facility] (56731) Comment: Order Comment: Order Added b y Discern Expert. Performed By: #### [id number] #### MARCUS WilcoxHemo [address] [place] [address] Eosinophils/100 WBC (Bld) 2 0-5 % Normal [facility] (74864) Comment: Order Comment: Order Added b y Discern Expert. Performed By: #### [id number] #### MARCUS WilcoxHemo [address] [place] [address] Lymphocytes/100 WBC (Bld) 33 14-48 % Normal [facility] (00 000) Comment: Order Comment: Order Added b y Discern Expert. Performed By: #### [id number] #### MARCUS WilcoxHemo [address] [place] [address] Putney Man 3 0-0 % High 02-23-2019 [facility] (44966) Comment: Order Comment: Order Added b y Discern Expert. Performed By: #### [id number] #### MARCUS RemHemo [address] [place] [address] Monocyte Man 11 1-11 % Normal 02-23-2019 [facility] (45424) Comment: Order Comment: Order Added b y Discern Expert. Performed By: #### [id number] #### MARCUS RemHemo [address] [place] [address] Myelo Man 2 0-0 % High 02-23-2019 [facility] (07030) Comment: Order Comment: Order Added erma y Discern Expert. Performed By: #### [id number] #### MARCUS WilcoxKarlo [address] [place] [address] Ovalocytes 1+ Normal 02-23-2019 [facility] (00350) Comment: Order Comment: Order Added b y Discern Expert. Performed By: #### [id number] #### MARCUSShawn Luong [facility] [place] [id number] Polychromasia 1+ Normal 02-23-2019 [facility] (99150) Comment: Order Comment: Order Added b y Discern Expert. Performed By: #### [id number] #### MARCUSShawn Luong [facility] [place] [id number] RBC morphology finding SEE MORPHOLOGY Normal [facility] (19666) Comment: Order Comment: Order Added erma y Discern Expert. Performed By: #### [id number] #### MARCUS JeriRahul [address] [place], [place] [id number] Segs Man 40 37-75 % Normal 02-23-2019 [facility] (06963) Comment: Order Comment: Order Added b y Discern Expert. Performed By: #### [id number] #### MARCUS Kenyoncorky [address] [place] [address] lamotrigine lvl on 2019-02-23 Lamotrigine Lvl None Detected 2.0-20.0 Normal 02-23-2019 [facility] (00 000) Comment: Result Comment: This test wa s developed and its performance characteristics determined by [facility]. It guzman s not been cleared or approved by the Food and Nabeel g Administration. Detection Limit = 1.0 Performed At: [facility] [id number] Aramis Sharpe MD Performed By: #### [id number] #### MARCUS Kenyono [facility] [place] [id number] egfr on 2019-02-23 GFR/1.73 sq M predicted 50 mL/min/1.73 m2 Normal 0 02-23-2019 [facility] among non-blacks [facility] (10873) (S/P/Bld) [Vol rate/Area] Comment: Order Comment: Order Added b dl Aldana Expert. Performed By: #### [id number] #### MARCUS WilcoxKarlo [facility] [place] [address] GFR/1.73 sq M predicted 60 mL/min/1.73 m2 Normal 0 02-23-2019 [facility] among non-blacks [facility] (70010) (S/P/Bld) [Vol rate/Area] Comment: Order Comment: Order Added erma Aldana Expert. Performed By: #### [id number] #### MARCUSShawn Kenyono [facility] [place] [address] cmp on 2019-02-23 Albumin [Mass/Vol] 3.3 3.4-5.0 gm/dL Low 02-23-2019 [facility] (75877) Comment: Performed By: #### [id number] #### MARCUS Kostaso [address] [place] [address] Albumin/Globulin [Mass 1.5 1.1-1.9 ratio Normal [facility]] Health [facility] (32873) Comment: Performed By: #### [id number] #### MARCUS WilcoxHemo [facility] [place] [address] Alk Phos 57 33-110 Int._Unit/L Normal 02-23-2019 [facility] (22367) Comment: Performed By: #### [id number] #### MARCUS JeriHemo [facility] [place] [address] ALT [Catalytic 12 7-45 Int._Unit/L Normal 02-23-2019 [facility] (28591) Comment: Performed By: #### [id number] #### MARCUS JeriHemo [address] [place] [address] Anion gap [Moles/Vol] 10 10-20 mEq/L Normal 02-24-20 19 [facility] (00 000) Comment: Performed By: #### [id number] #### MARCUS WilcoxHemo [address] [place] [address] AST [Catalytic 20 9-39 Int._Unit/L Normal 02-23-2019 [facility] activity/[facility] (30940) Comment: Performed By: #### [id number] #### MARCUS RemHemo [address] [place] [address] Bili Total 0.33 0.00-1.20 mg/dL Normal 02-23-2019 [facility] (54156) Comment: Performed By: #### [id number] #### MARCUS JeriHemo [address] [place] [address] Calcium [Mass/Vol] 8.3 8.6-10.3 mg/dL Low 02-23-2019 [facility] (44976) Comment: Performed By: #### [id number] #### MARCUS JeriHemo [address] [place] [address] Chloride [Moles/Vol] 114 98-107 mEq/L High 9 [facility] () Comment: Performed By: #### [id number] #### MARCUS RemHemo [facility] [place] [address] CO2 [Moles/Vol] 22.0 21.0-32.0 mEq/L Normal 02-23-2019 [facility] (00 000) Comment: Performed By: #### [id number] #### MACRUS RemHemo [facility] [place] [address] Creatinine [Mass/Vol] 1.2 0.5-1.1 mg/dL High 02-24-20 19 [facility] (00 000) Comment: Performed By: #### [id number] #### MARCUS RemHemo [facility] [place] [address] Globulin (S) [Mass/Vol] 2.0 2.0-4.0 G/DL Normal 2018 [facility] (00 000) Comment: Performed By: #### [id number] #### MARCUS RemHemo [address] [place] [address] Glucose [Mass/Vol] 86 70-99 mg/dL Normal 02-23-2019 [facility] (35184) Comment: Performed By: #### [id number] #### MARCUS RemHemo [address] [place] [address] Potassium [Moles/Vol] 4.4 3.5-5.3 mEq/L Normal 02-24-20 19 [facility] (00 000) Comment: Performed By: #### [id number] #### MARCUS WilcoxHemo [address] [place] [address] Protein [Mass/Vol] 5.5 6.4-8.2 gm/dL Low 02-23-2019 [facility] (02239) Comment: Performed By: #### [id number] #### MARCUS JeriHemo [facility] [place] [address] Sodium [Moles/Vol] 141 136-145 mEq/L Normal 02-23-2019 [facility] (00 000) Comment: Performed By: #### [id number] #### MARCUS JeriHemo [facility] [place] [address] Urea nitrogen [Mass/Vol] 11 6-23 mg/dL Normal 02-23 [facility] (00 ) Comment: Performed By: #### [id number] #### MARCUS JeriHemo [address] [place] [address] Urea nitrogen/Creatinine 9.2 5.4-30.0 ratio Normal 02-23 [facility] [Mass ratio] [facility] (55130) Comment: Performed By: #### [id number] #### MARCUS JeriHemo [facility] [place] [address] cbc w/ auto diff on 2019-02-23 Erythrocyte distribution 14.7 11.5-14.5 % High 02-23 [facility] width (RBC) [Ratio] Health System (45732) Comment: Performed By: #### [id number] #### MARCUS JeriHemo [facility] [place] [address] Hematocrit (Bld) [Volume 35.2 36.0-48.0 % Low 02-23 [facility]] System (00 000) Comment: Performed By: #### [id number] #### MARCUS JeriHemo [facility] [place] [address] Hemoglobin (Bld) 11.7 12.0-16.0 G/DL Low 02-23-2019 [facility] [Mass/Vol] Health Sy stem (90694) Comment: Performed By: #### [id number] #### MARCUS WilcoxKarlo [facility] [place] [address] MCH (RBC) [Entitic mass] 31.2 27.0-31.0 pg High 02-23 [facility] ( 000) Comment: Performed By: #### [id number] #### MARCUS WilcoxKarlo [facility] [place] [address] MCHC (RBC) [Mass/Vol] 33.2 33.0-37.0 G/DL Normal 02-24-20 19 [facility] () Comment: Performed By: #### [id number] #### MARCUS JeriHemo [facility] [place] [address] MCV (RBC) [Entitic vol] 93.8 78.0-100.0 fL Normal 02-23 [facility] (95315) Comment: Performed By: #### [id number] #### MARCUS WilcoxHemo [address] [place] [address] Platelet mean volume 7.6 7.4-11.0 fL Normal 9 [facility] (Bld) [Entitic vol] System (30422) Comment: Performed By: #### [id number] #### MARCUS WilcoxHemo [facility] [place] [address] Platelets (Bld) [#/Vol] 56 130-400 E3/mcL Low 2018 [facility] () Comment: Performed By: #### [id number] #### MARCUS JeriHemo [address] [place] [address] RBC (Bld) [#/Vol] 3.75 3.90-5.40 E6/mcL Low 02-23-2019 [facility] () Comment: Performed By: #### [id number] #### MARCUSShawn WilcoxHemo [facility] [place] [address] WBC (Bld) [#/Vol] 2.4 3.6-11.0 E3/mcL Low 02-23-2019 [facility] (21173) Comment: Performed By: #### [id number] #### MARCUS Kenyono [facility] [place] [address] c urine on C Urine Final Report: Rare Normal Normal 05-0 [facility] skin joe isolated System (32353) Comment: Performed By: #### [id number] #### MARCUS Kenyono [facility] [place] [address] ammonia on Ammonia (P) [Mass/Vol] 53 16-53 mcmol/L Normal 019 [facility] (00 000) Comment: Performed By: #### [id number] #### MARCUS Kenyono [address] [place] [address] .manual abs on 2018 Basophil Abs Man 0.0 0.0-0.2 10x3/ Normal 02-23-2019 [facility] (86949) Comment: Order Comment: Order Added b y Discern Expert. Performed By: #### [id number] #### MARCUS Kostascorky [address] [place] [address] Eos Abs Man 0.0 0.0-0.5 10x3/ Normal 02-23-2019 [facility] (05835) Comment: Order Comment: Order Added b y Discern Expert. Performed By: #### [id number] #### MARCUS Kenyono [address] [place] [address] Lymph Abs Man 0.8 1.2-3.4 10x3/ Low 02-23-2019 [facility] (08491) Comment: Order Comment: Order Added b y Discern Expert. Performed By: #### [id number] #### MARCUS Kostaso [address] [place] [address] Cassia Abs Man 0.3 0.0-0.7 10x3/ Normal 02-23-2019 [facility] (79039) Comment: Order Comment: Order Added b y Discern Expert. Performed By: #### [id number] #### MARCUS Kostaso [address] [place], [place] [id number] Segs Abs Man 1.0 1.4-6.5 10x3/ Low 02-23-2019 [facility] (99779) Comment: Order Comment: Order Added b y Discern Expert. Performed By: #### [id number] #### MARCUSShawn WilcoxHemo [facility] [place] [address] zzplt morph on 2018 Platelet morphology finding ENLARGED Normal [facility] (d) System (00 000) Comment: Performed By: #### [id number] #### MARCUSShawn Kenyono [facility] [place] [address] Platelets (Bld) [#/Vol] DECREASED Normal 2018 [facility] (00 000) Comment: Performed By: #### [id number] #### MARCUS JeriHemo [address] [place] [address] valproic acid on 05-03-08 Valpro Acid Lvl 75 50-100 microgram/mL Normal 02-22-2019 [facility] (00 000) Comment: Performed By: #### [id number] #### MARCUS Jeri[address] [address] phosphorus on 02-22 Phosphate [Mass/Vol] 2.7 2.5-4.9 mg/dL Normal 9 [facility] (00 000) Comment: Performed By: #### [id number] #### MARCUS Kostaso [address] [place] [address] 00292 manual diff on 2018 Anisocytosis Ql (Bld) 1+ Normal 02-23-20 [facility] (60872) Comment: Order Comment: Order Added erma y Discern Expert. Performed By: #### [id number] #### MARCUSShawn Luong [address] [place] [address] Basophil Man 0 0-1 % Normal 02-22-2019 [facility] (79617) Comment: Order Comment: Order Added b y Discern Expert. Performed By: #### [id number] #### MARCUSShawn Kenyono [address] [place] [address] 21408 Eosinophils/100 WBC (Bld) 0 0-5 % Normal 05-0 [facility] (65789) Comment: Order Comment: Order Added b y Discern Expert. Performed By: #### [id number] #### MARCUS Kenyono [address] [place] [address] Lymphocytes/100 WBC (d) 51 14-48 % High 05- 8-2018 [facility] (60909) Comment: Order Comment: Order Added erma Aldana Expert. Performed By: #### [id number] #### MARCUS Kenyono [address] [place] [address] Monocyte Man 9 1-11 % Normal 02-22-2019 [facility] (40313) Comment: Order Comment: Order Added b dl Discern Expert. Performed By: #### [id number] #### MARCUS JeriRahul [facility] [place] [address] RBC morphology finding SEE MORPHOLOGY Normal [facility] (87377) Comment: Order Comment: Order Added erma Aldana Expert. Performed By: #### [id number] #### MARCUS Kostaso [address] [place] [address] Segs Man 40 37-75 % Normal 02-22-2019 [facility] (31976) Comment: Order Comment: Order Added erma Aldana Expert. Performed By: #### [id number] #### MARCUS Kenyono [address] [place] [address] magnesium on 08 Magnesium [Mass/Vol] 1.8 1.6-2.4 mg/dL Normal 9 [facility] (00 000) Comment: Performed By: #### [id number] #### MARCUSShawn Kenyon[address] [address] hgba1c on 8 HbA1c ([facility]) [Mass fraction] 5.1 4.0-6.3 % Normal [facility] (00 000) Comment: Performed By: #### [id number] #### MARCUSShawn Kenyono [address] [place], [place] [id number] gases - blood on 05-03-08 Allens Test. Normal 02-22-2019 [facility] (45351) Comment: Performed By: #### [id number] #### [facility] [address] [place], [place] [id number] Base Excess. -9 -2-3 mmol/L Low 02-22-2019 [facility] (75980) Comment: Performed By: #### [id number] #### MARCUS RemHemo [facility] [place] [address] CO2 Tot. 17 22-28 mmol/L Low 02-22-2019 [facility] (24180) Comment: Performed By: #### [id number] #### MARCUS RemHemo [facility] [place] [address] CPAP/PEEP(cmH2O). NOT CALCULATED Normal 019 [facility] (00 000) Comment: Performed By: #### [id number] #### MARCUS RemHemo [facility] [place] [address] FiO2. 21 % Normal 02-22-2019 [facility] (08595) Comment: Performed By: #### [id number] #### MARCUS RemHemo [facility] [place] [address] HCO#. 16.3 22.0-26.0 mmol/L Low 02-22-2019 [facility] (84818) Comment: Performed By: #### [id number] #### MARCUS RemHemo [facility] [place] [address] O2 Devices. Room Air Normal 02-22-2019 [facility] (92540) Comment: Performed By: #### [id number] #### MARCUS RemHemo [facility]5 [place] [address] OPID. [id number] Normal 02-22-2019 [facility] (27592) Comment: Performed By: #### [id number] #### MARCUS RemHemo [facility]5 [place] [id number] Oxygen (Bld) [Partial 101 80-100 mmHg High 02-23-20 [facility]] System (00 000) Comment: Performed By: #### [id number] #### MARCUS RemHemo [facility]5 [place] [id number] Oxygen saturation in Blood 98 95-100 % Normal [facility] (00 000) Comment: Performed By: #### [id number] #### [place] [address] P CO2. 28.4 35.0-45.0 mmHg Low 02-22-2019 [facility] (50872) Comment: Performed By: #### [id number] #### [place] [address] Patient Temp. NOT CALCULATED Normal 02-22-2019 [facility] (07507) Comment: Performed By: #### [id number] #### [place] [address] pH (Bld) 7.367 7.350-7.450 Normal 02-22-2019 [facility] (31064) Comment: Performed By: #### [id number] #### [place] [address] PSV/IP(cmH2O). NOT CALCULATED Normal 02-22-2019 [facility] (39642) Comment: Performed By: #### [id number] #### [place] [address] Sample Site. R brach Normal 02-22-2019 [facility] (79144) Comment: Performed By: #### [id number] #### [place] [address] Sample Type. Arterial Normal 02-22-2019 [facility] (61302) Comment: Performed By: #### [id number] #### [place] [address] Set RR(b/min). NOT CALCULATED Normal 02-22-2019 [facility] (73716) Comment: Performed By: #### [id number] #### [facility] [address] [place] [address] Tidal Volume(mL). NOT CALCULATED Normal 019 [facility] (00 000) Comment: Performed By: #### [id number] #### [facility] [address] [place] [address] Vent Mode. NOT CALCULATED Normal 02-22-2019 [facility] (44809) Comment: Performed By: #### [id number] #### MARCUS Kenyono [address] [place] [address] egfr on 2019-02-22 GFR/1.73 sq M predicted 56 mL/min/1.73 m2 Normal 0 02-22-2019 [facility] among non-blacks [facility] (00620) (S/P/Bld) [Vol rate/Area] Comment: Order Comment: Order added erma Aldana Expert. Performed By: #### [id number] # ### MARCUS JeriHemo [facility]5 [place] [address] GFR/1.73 sq M predicted 46 mL/min/1.73 m2 Normal 0 02-22-2019 [facility] among non-blacks [facility] (76708) (S/P/Bld) [Vol rate/Area] Comment: Order Comment: Order added erma Aldana Expert. Performed By: #### [id number] # ### MARCUS JeriHemo [address] [place] [address] cbc w/ auto diff on 2019-02-22 Erythrocyte distribution 15.0 11.5-14.5 % High 02-22 [facility] width (RBC) [Ratio] Health System (76097) Comment: Performed By: #### [id number] #### MARCUS JeriHemo [facility]5 [place] [address] Hematocrit (Bld) [Volume 35.9 36.0-48.0 % Low 02-22 [facility] Health fraction] System (00 000) Comment: Performed By: #### [id number] #### MARCUS JeriHemo [facility]5 [place] [address] Hemoglobin (Bld) 11.8 12.0-16.0 G/DL Low 02-22-2019 [facility] [Mass/Vol] Health Sy stem (49809) Comment: Performed By: #### [id number] #### MARCUSShawn WilcoxHemo [facility] [place] [address] MCH (RBC) [Entitic mass] 31.1 27.0-31.0 pg High 02-22 [facility] (00 000) Comment: Performed By: #### [id number] #### [facility] [place] [address] MCHC (RBC) [Mass/Vol] 32.9 33.0-37.0 G/DL Low 02-23-20 [facility] (00 000) Comment: Performed By: #### [id number] #### MARCUS WilcoxHemo [facility]5 [place] [address] MCV (RBC) [Entitic vol] 94.6 78.0-100.0 fL Normal 02-22 [facility] (83886) Comment: Performed By: #### [id number] #### MARCUS WilcoxHemo [facility]5 [place] [address] Platelet mean volume 7.9 7.4-11.0 fL Normal 9 [facility] (Bld) [Entitic vol] System (64490) Comment: Performed By: #### [id number] #### MARCUS WilcoxHemo [facility]5 [place] [address] Platelets (Bld) [#/Vol] 62 130-400 E3/mcL Low 2018 [facility] (00 000) Comment: Performed By: #### [id number] #### MARCUS WilcoxHemo [facility]5 [place] [address] RBC (Bld) [#/Vol] 3.79 3.90-5.40 E6/mcL Low 02-22-2019 [facility] (00 000) Comment: Performed By: #### [id number] #### MARCUS WilcoxHemo [facility] [place] [address] WBC (Bld) [#/Vol] 2.8 3.6-11.0 E3/mcL Low 02-22-2019 [facility] (08197) Comment: Performed By: #### [id number] #### MARCUS JeriHemo [address] [place] [address] bmp on 2019-02-22 Anion gap [Moles/Vol] 10 10-20 mEq/L Normal 02-23-20 [facility] (00 000) Comment: Performed By: #### [id number] # ### MARCUS WilcoxHemo [address] [place] [address] Calcium [Mass/Vol] 7.7 8.6-10.3 mg/dL Low 02-22-2019 [facility] (47776) Comment: Performed By: #### [id number] # ### MARCUS WilcoxHemo [address] [place] [address] Chloride [Moles/Vol] 115 98-107 mEq/L High 9 [facility] (00 000) Comment: Performed By: #### [id number] # ### MARCUS WilcoxHemo [address] [place] [address] CO2 [Moles/Vol] 20.0 21.0-32.0 mEq/L Low 02-22-2019 [facility] (32928) Comment: Performed By: #### [id number] # ### MARCUS WilcoxHemo [address] [place] [address] Creatinine [Mass/Vol] 1.2 0.5-1.1 mg/dL High 02-23-20 19 [facility] (00 000) Comment: Performed By: #### [id number] # ### MARCUS JeriHemo [address] [place] [address] Glucose [Mass/Vol] 89 70-99 mg/dL Normal 02-22-2019 [facility] (42717) Comment: Performed By: #### [id number] # ### MARCUS WilcoxHemo [facility]5 [place] [address] Potassium [Moles/Vol] 4.3 3.5-5.3 mEq/L Normal 02-23-20 19 [facility] (00 000) Comment: Performed By: #### [id number] # ### MARCUS RemHemo [facility]5 [place] [address] Sodium [Moles/Vol] 141 136-145 mEq/L Normal 02-22-2019 [facility] (00 000) Comment: Performed By: #### [id number] # ### MARCUS RemHemo [address] [place] [address] Urea nitrogen [Mass/Vol] 14 6-23 mg/dL Normal 02-22 [facility] (00 000) Comment: Performed By: #### [id number] # ### MARCUS RemHemo [address] [place] [address] Urea nitrogen/Creatinine 11.7 5.4-30.0 ratio Normal 02-22 [facility] [Mass ratio] [facility] (36566) Comment: Performed By: #### [id number] # ### MARCUS Kenyono [address] [place] [address] .manual abs on 2018 Basophil Abs Man 0.0 0.0-0.2 10x3/ Normal 02-22-2019 [facility] (62133) Comment: Order Comment: Order Added b y Discern Expert. Performed By: #### [id number] #### MARCUSShawn WilcoxKarlo [address] [place] [address] Eos Abs Man 0.0 0.0-0.5 10x3/ Normal 02-22-2019 [facility] (64243) Comment: Order Comment: Order Added b y Discern Expert. Performed By: #### [id number] #### MARCUSShawn WilcoxKarlcorky [address] [place] [address] Lymph Abs Man 1.4 1.2-3.4 10x3/ Normal 02-22-2019 [facility] (22136) Comment: Order Comment: Order Added b y Discern Expert. Performed By: #### [id number] #### MARCUSShawn WilcoxHemo [address] [place] [address] Cassia Abs Man 0.3 0.0-0.7 10x3/ Normal 02-22-2019 [facility] (79199) Comment: Order Comment: Order Added b y Discern Expert. Performed By: #### [id number] #### MARCUS Kostaso [address] [place] [address] Segs Abs Man 1.1 1.4-6.5 10x3/ Low 02-22-2019 [facility] (05654) Comment: Order Comment: Order Added b y Discern Expert. Performed By: #### [id number] #### [place] [address] zzplt morph on 2018 Platelet morphology finding ENLARGED Normal [facility] (d) System (00 000) Comment: Performed By: #### [id number] #### MARCUS Urinalysis Automated Suggs bsection [address] [place] [address] Platelets (Bld) [#/Vol] DECREASED Normal 2018 [facility] (00 000) Comment: Performed By: #### [id number] #### MARCUS Urinalysis Automated [facility] bsection [address] [place] [address] valproic acid on 05-03-07 Valpro Acid Lvl 102 50-100 microgram/mL Critically 02-21-2019 Confucianist abnormal [facility]alt System (00 000) Comment: Result Comment: Critical Res ult (s) Called to and read back by: XUAN GARCIA at: 02/21/2019 18:51 :29 by:ZOFIA Performed By: #### [id number] # ### MARCUS RemHemo [address] [place] [address] Valpro Acid Lvl 101 50-100 microgram/mL Critically 02-21-2019 [facility] System (00 000) Comment: Result Comment: Critical Res ult (s) Called to and read back by: XUAN GARCIA at: 02/21/2019 13:43 :39 by:RAY Performed By: #### [id number] # ### MARCUS Microbiology Subsection [facility]5 [place] [id number] ua complete on 2018 Color (U) Straw Yellow Normal 02-21-2019 [facility] (88941) Comment: Order Comment: Straight Cath as needed Performed By: #### [id number] # ### MARCUS Microbiology Subsection [address] [place] [address] Glucose (U) [Mass/Vol] Negative Negative mg/dL Normal 019 [facility] (72001) Comment: Order Comment: Straight Cath as needed Performed By: #### [id number] # ### MARCUS Microbiology Subsection [address] [place] [address] Ketones Ql (U) Negative Negative Normal 02-21-2019 [facility] (56448) Comment: Order Comment: Straight Cath as needed Performed By: #### [id number] # ### MARCUS Microbiology Subsection [address] [place] [address] RBC (U) [#/Vol] 0-3 0-3 Normal 02-21-2019 [facility] (15721) Comment: Order Comment: Straight Cath as needed Performed By: #### [id number] # ### MARCUS Microbiology Subsection [address] [place] [address] UA Blood Negative Negative Normal 02-21-2019 [facility] (33584) Comment: Order Comment: Straight Cath as needed Performed By: #### [id number] # ### MARCUS Microbiology Subsection [address] [place] [address] UA Bacteria Trace None Abnormal 02-21-2019 [facility] (00152) Comment: Order Comment: Straight Cath as needed Performed By: #### [id number] # ### MARCUS Microbiology Subsection [address] [place] [address] UA Clarity SltCloudy Clear Abnormal 02-21-2019 [facility] (31977) Comment: Order Comment: Straight Cath as needed Performed By: #### [id number] # ### MARCUS Microbiology Subsection [address] [place] [address] UA Leuk Est 1+ Negative Abnormal 02-21-2019 [facility] (00194) Comment: Order Comment: Straight Cath as needed Performed By: #### [id number] # ### MARCUS Microbiology Subsection [address] [place] [address] UA Mucous Trace Trace Abnormal 02-21-2019 [facility] (01058) Comment: Order Comment: Straight Cath as needed Performed By: #### [id number] # ### MARCUS Microbiology Subsection [address] [place] [address] UA Nitrite Negative Negative Normal 02-21-2019 [facility] (58345) Comment: Order Comment: Straight Cath as needed Performed By: #### [id number] # ### MARCUS Microbiology Subsection [address] [place] [address] UA pH 5.0 4.6-8.0 Normal 02-21-2019 [facility] (51448) Comment: Order Comment: Straight Cath as needed Performed By: #### [id number] # ### MARCUS Microbiology Subsection [address] [place] [address] UA Protein Negative Negative Normal 02-21-2019 [facility] (16231) Comment: Order Comment: Straight Cath as needed Performed By: #### [id number] # ### MARCUS Microbiology Subsection [facility] [place] [address] UA Spec Grav 1.005 1.003-1.030 Normal 02-21-2019 [facility] (86658) Comment: Order Comment: Straight Cath as needed Performed By: #### [id number] # ### MARCUS Microbiology Subsection [facility] [place] [address] UA Squam Epithelial 5-10 0-5 Abnormal 02-21-2019 [facility] (25322) Comment: Order Comment: Straight Cath as needed Performed By: #### [id number] # ### MARCUS Microbiology Subsection [address] [place] [address] UA Urobilinogen Negative Normal 02-21-2019 [facility] (21109) Comment: Order Comment: Straight Cath as needed [...] laboratory within 24 hours. Performed By: #### [id number] # ### MARCUS Microbiology Subsection [address] [place] [address] UA WBC 0-5 0-5 Normal 02-21-2019 [facility] (53857) Comment: Order Comment: Straight Cath as needed Performed By: #### [id number] # ### MARCUS Microbiology Subsection [address] [place] [address] Urobilinogen Qn (U) Negative Negative Normal 02-21-2019 [facility] (00 000) Comment: Order Comment: Straight Cath as needed Performed By: #### [id number] # ### MARCUS Microbiology Subsection [address] [place] [address] u sodium on 2019-02 Sodium [Moles/Vol] 36 mmol/L Normal 02-21-2019 [facility] (35885) Comment: Performed By: #### [id number] # ### MARCUS Microbiology Subsection [address] [place] [address] u protein on 02-21 Protein [Mass/Vol] 4 1-14 mg/dL Normal 02-21-2019 [facility] (68655) Comment: Performed By: #### [id number] # ### MARCUS RemHemo [address] [place] [address] u creatinine on 201 06-22-07 U Creatinine 31 20-300 mg/dL Normal 02-21-2019 [facility] (53977) Comment: Performed By: #### [id number] # ### MARCUS RemHemo [address] [place] [address] u bhcg qlt on 02-21 HCG.beta subunit Qn Neg Neg m[IU]/mL Normal 02-21-2019 [facility] (00 000) Comment: Performed By: #### [id number] # ### MARCUS Microbiology Subsection [address] [place] [address] tsh on 2019-02-21 TSH Qn 4.82 0.30-5.60 mcIU/mL Normal 02-21-2019 [facility] (66781) Comment: Order Comment: With T4fr Ref kurt Performed By: #### [id number] # ### MARCUS Microbiology Subsection [address] [place] [id number] salicylate on 02-21 Salicylate Lvl <1.5 4.0-20.0 Low 02-21-2019 [facility] (28632) Comment: Performed By: #### [id number] # ### MARCUS RemHemo [address] [place] [address] morph on 2019-02-21 Polychromasia 1+ Normal 02-21-2019 [facility] (51002) Comment: Order Comment: Straight Cath as needed Performed By: #### [id number] #### MARCUS Urinalysis Automated [facility] bsection [address] [place] [address] RBC morphology finding SEE MORPHOLOGY Normal [facility] (d) Health Sys tem (94753) Comment: Order Comment: Straight Cath as needed Performed By: #### [id number] #### MARCUS Urinalysis Automated [facility] bsection [address] [place] [address] Teardrop Cell 1+ Normal 02-21-2019 [facility] (92179) Comment: Order Comment: Straight Cath as needed Performed By: #### [id number] #### MARCUS Urinalysis Automated [facility] bsection [address] [place] [address] magnesium on 02-21 Magnesium [Mass/Vol] 1.7 1.6-2.4 Int._Unit/L Normal [facility] (95834) Comment: Performed By: #### [id number] # ### MARCUS Microbiology Subsection [address] [place] [address] lipase level on 06-22-07 Lipase Lvl 37 9-82 Int._Unit/L Normal 02-21-2019 [facility] (66384) Comment: Performed By: #### [id number] #### MARCUS Urinalysis Automated [facility] bsection [address] [place], [place] [id number] lactic acid on 2018 Lactate [Moles/Vol] 1.4 0.4-2.0 mmol/L Normal 02-21-2019 [facility] (00 000) Comment: Order Comment: Sepsis Reflex order due to high lactic acid level Performed By: #### [id number] # ### MARCUS RemHemo [address] [place] [address] Lactate [Moles/Vol] 2.2 0.4-2.0 mmol/L High 02-21-2019 [facility] (00 000) Comment: Performed By: #### [id number] # ### MARCUS RemHemo [facility] [place] [address] hep func panel on Albumin [Mass/Vol] 4.0 3.4-5.0 gm/dL Normal 02-21-2019 [facility] (00 000) Comment: Performed By: #### [id number] #### MARCUS Urinalysis Automated [facility] bsection [address] [place] [address] Albumin/Globulin [Mass 1.5 1.1-1.9 ratio Normal [facility] tem (95389) Comment: Performed By: #### [id number] #### MARCUS Urinalysis Automated [facility] bsection [address] [place] [address] Alk Phos 69 33-110 Int._Unit/L Normal 02-21-2019 [facility] (54539) Comment: Performed By: #### [id number] #### MARCUS Urinalysis Automated [facility] bsection [address] [place] [address] ALT [Catalytic 18 7-45 Int._Unit/L Normal 02-21-2019 [facility] (60682[facility] Comment: Performed By: #### [id number] #### MARCUS Urinalysis Automated [facility] bsection [address] [place] [address] AST [Catalytic 33 9-39 Int._Unit/L Normal 02-21-2019 [facility] (87040) Comment: Performed By: #### [id number] #### MARCUS Urinalysis Automated [facility] bsection [address] [place] [address] Bili Direct 0.10 0.00-0.30 mg/dL Normal 02-21-2019 [facility] (19691) Comment: Performed By: #### [id number] #### MARCUS Urinalysis Automated [facility] bsection [address] [place] [address] Bili Indirect 0.33 mg/dL Normal 02-21-2019 [facility] (34573) Comment: Result Comment: No establish ed ranges available for the indirect bilirubin Performed By: #### [id number] #### MARCUS Urinalysis Automated [facility] bsection [address] [place] [address] Bili Total 0.43 0.00-1.20 mg/dL Normal 02-21-2019 [facility] (93630) Comment: Performed By: #### [id number] #### MARCUS Urinalysis Automated [facility] bsection [address] [place] [address] Globulin (S) [Mass/Vol] 3.0 2.0-4.0 G/DL Normal 2018 [facility] (00 000) Comment: Performed By: #### [id number] #### MARCUS Urinalysis Automated [facility] bsection [address] [place] [address] Protein [Mass/Vol] 6.6 6.4-8.2 gm/dL Normal 02-21-2019 [facility] (00 000) Comment: Performed By: #### [id number] #### MARCUS Urinalysis Automated [facility] bsection [address] [place], [place] [id number] gases - blood on 05-03-07 Allens Test. Positive Normal 02-21-2019 [facility] (44807) Comment: Performed By: #### [id number] # ### MARCUS RemHemo [address] [place] [address] Base Excess. -9 -2-3 mmol/L Low 02-21-2019 [facility] (35796) Comment: Performed By: #### [id number] # ### MARCUS RemHemo [facility] [place] [address] CO2 Tot. 18 22-28 mmol/L Low 02-21-2019 [facility] (15142) Comment: Performed By: #### [id number] # ### MARCUS RemHemo [address] [place] [address] CPAP/PEEP(cmH2O). 0 Normal 02-21-2019 [facility] (33216) Comment: Performed By: #### [id number] # ### MARCUS RemHemo [facility] [place] [address] FiO2. 21 % Normal 02-21-2019 [facility] (90188) Comment: Performed By: #### [id number] # ### MARCUS RemHemo [facility] [place] [address] HCO#. 17.2 22.0-26.0 mmol/L Low 02-21-2019 [facility] (72992) Comment: Performed By: #### [id number] # ### MARCUS RemHemo [facility] [place] [address] O2 Devices. Room Air Normal 02-21-2019 [facility] (74484) Comment: Performed By: #### [id number] # ### MARCUS RemHemo [address] [place] [id number] OPID. [id number] Normal 02-21-2019 [facility] (78307) Comment: Performed By: #### [id number] # ### MARCUS RemHemo [address] [place] [address] Oxygen (Bld) [Partial 85 80-100 mmHg Normal 02-22-20 19 [facility]] System (00 000) Comment: Performed By: #### [id number] # ### MARCUS Kostaso [facility] [place] [id number] Oxygen saturation in Blood 96 95-100 % Normal [facility] (00 000) Comment: Performed By: #### [id number] # ### MARCUSShawn WilcoxKarlo [facility]5 [place] [id number] P CO2. 32.7 35.0-45.0 mmHg Low 02-21-2019 [facility] (83466) Comment: Performed By: #### [id number] # ### MARCUS Kostaso [facility] [place] [id number] Patient Temp. NOT CALCULATED Normal 02-21-2019 [facility] (09248) Comment: Performed By: #### [id number] # ### MARCUS Kostaso [address] [place] [address] pH (Bld) 7.329 7.350-7.450 Low 02-21-2019 [facility] (19366) Comment: Performed By: #### [id number] # ### MARCUS Kostaso [address] [place] [address] PSV/IP(cmH2O). 0 Normal 02-21-2019 [facility] (73403) Comment: Performed By: #### [id number] # ### MARCUS Kostaso [address] [place] [address] Sample Site. R rad Normal 02-21-2019 [facility] (66911) Comment: Performed By: #### [id number] # ### MARCUSShawn WilcoxHemo [facility] [place] [address] Sample Type. Arterial Normal 02-21-2019 [facility] (45270) Comment: Performed By: #### [id number] # ### MARCUSShawn WilcoxKarlo [facility] [place] [id number] Set RR(b/min). 0 Normal 02-21-2019 [facility] (03122) Comment: Performed By: #### [id number] # ### MARCUSShawn WilcoxHemo [address] [place] [address] Tidal Volume(mL). 0 Normal 02-21-2019 [facility] (35750) Comment: Performed By: #### [id number] # ### MARCUSShawn WilcoxHemo [address] [place] [address] Vent Mode. NOT CALCULATED Normal 02-21-2019 [facility] (58085) Comment: Performed By: #### [id number] # ### MARCUSShawn WilcoxHemo [facility] [place] [address] Allens Test. Neg Normal 02-21-2019 [facility] (42422) Comment: Performed By: #### [id number] # ### MARCUSShawn WilcoxHemo [facility] [place] [address] Base Excess. -8 -2-3 mmol/L Low 02-21-2019 [facility] (80201) Comment: Performed By: #### [id number] # ### MARCUSShawn WilcoxHemo [address] [place] [address] CO2 Tot. 19 22-28 mmol/L Low 02-21-2019 [facility] (94468) Comment: Performed By: #### [id number] # ### MARCUSShawn WilcoxHemo [facility] [place] [address] CPAP/PEEP(cmH2O). NOT CALCULATED Normal 019 [facility] (00 000) Comment: Performed By: #### [id number] # ### MARCUSShawn WilcoxHemo [facility] [place] [address] FiO2. 21 % Normal 02-21-2019 [facility] (33115) Comment: Performed By: #### [id number] # ### MARCUS RemHemo [facility] [place] [address] HCO#. 17.9 22.0-26.0 mmol/L Low 02-21-2019 [facility] (70024) Comment: Performed By: #### [id number] # ### MARCUSShawn WilcoxHemo [facility] [place] [address] O2 Devices. Room Air Normal 02-21-2019 [facility] (72560) Comment: Performed By: #### [id number] # ### MARCUS WilcoxHemo [address] [place] [address] OPID. [id number] Normal 02-21-2019 [facility] (53180) Comment: Performed By: #### [id number] # ### MARCUS WilcoxHemo [facility] [place] [address] Oxygen (Bld) [Partial 86 80-100 mmHg Normal 02-22-20 19 [facility]] System (00 000) Comment: Performed By: #### [id number] # ### MARCUS WilcoxHemo [facility] [place] [id number] Oxygen saturation in Blood 96 95-100 % Normal [facility] (00 000) Comment: Performed By: #### [id number] # ### MARCUS WilcoxHemo [address] [place], [place] [address] P CO2. 34.1 35.0-45.0 mmHg Low 02-21-2019 [facility] (93971) Comment: Performed By: #### [id number] # ### MARCUS JeriHemo [address] [place] [address] Patient Temp. NOT CALCULATED Normal 02-21-2019 [facility] (81825) Comment: Performed By: #### [id number] # ### MARCUS Kenyono [facility] [place] [id number] pH (Bld) 7.329 7.350-7.450 Low 02-21-2019 [facility] (83473) Comment: Performed By: #### [id number] # ### MARCUS Kostaso [address] [place], [place] [id number] PSV/IP(cmH2O). NOT CALCULATED Normal 02-21-2019 [facility] (01802) Comment: Performed By: #### [id number] # ### MARCUS JeriHemo [facility]5 [place] [address] Sample Site. R rad Normal 02-21-2019 [facility] (10068) Comment: Performed By: #### [id number] # ### MARCUS JeriHemo [facility] [place] [id number] Sample Type. Arterial Normal 02-21-2019 [facility] (79111) Comment: Performed By: #### [id number] # ### MARCUS RemHemo [address] [place] [address] Set RR(b/min). NOT CALCULATED Normal 02-21-2019 [facility] (54455) Comment: Performed By: #### [id number] # ### MARCUS RemHemo [address] [place] [address] Tidal Volume(mL). NOT CALCULATED Normal 019 [facility] (00 000) Comment: Performed By: #### [id number] # ### MARCUS RemHemo [address] [place] [id number] Vent Mode. NOT CALCULATED Normal 02-21-2019 [facility] (57256) Comment: Performed By: #### [id number] # ### MARCUS RemHemo [address] [place] [id number] ethanol on Ethanol [Mass/Vol] <10 <=10 mg/dL Normal 02-21-2019 [facility] (44932) Comment: Performed By: #### [id number] # ### MARCUS Microbiology Subsection [address] [place] [address] egfr on 2019-02-21 GFR/1.73 sq M predicted 49 mL/min/1.73 m2 Normal 0 02-21-2019 [facility] among non-blacks [facility] (91187) (S/P/Bld) [Vol rate/Area] Comment: Order Comment: Straight Cath as needed Performed By: #### [id number] #### MARCUS Urinalysis Automated Suggs bsection [address] [place] [address] GFR/1.73 sq M predicted 40 mL/min/1.73 m2 Normal 0 02-21-2019 [facility] among non-blacks [facility] (60224) (S/P/Bld) [Vol rate/Area] Comment: Order Comment: Straight Cath as needed Performed By: #### [id number] #### MARCUS Urinalysis Automated [facility] bsection [address] [place] [address] ck on 2019-02-21 Total CK 46 <=215 Int._Unit/L Normal 02-21-2019 [facility] (53188) Comment: Performed By: #### [id number] #### MARCUS Urinalysis Automated [facility] bsection [address] [place] [address] cbc w/ auto diff on 2019-02-21 Erythrocyte distribution 14.7 11.5-14.5 % High 02-21 [facility] width (RBC) [Ratio] Health System (97841) Comment: Performed By: #### [id number] #### MARCUS Urinalysis [facility]ated [facility] bsection [address] [place] [address] Hematocrit (Bld) [Volume 41.4 36.0-48.0 % Normal 02-21 [facility] (74654) Comment: Performed By: #### [id number] #### MARCUS Urinalysis Automated [facility] bsection [address] [place] [address] Hemoglobin (Bld) 13.3 12.0-16.0 G/DL Normal 02-21-2019 [facility] [Mass/Vol] Health Sy stem (57421) Comment: Performed By: #### [id number] #### MARCUS Urinalysis Automated [facility] bsection [address] [place] [address] MCH (RBC) [Entitic mass] 30.7 27.0-31.0 pg Normal 02-21 [facility] (00 000) Comment: Performed By: #### [id number] #### MARCUS Urinalysis Automated [facility] bsection [address] [place] [address] MCHC (RBC) [Mass/Vol] 32.2 33.0-37.0 G/DL Low 02-22-20 19 [facility] (00 000) Comment: Performed By: #### [id number] #### MARCUS Urinalysis Automated [facility] bsection [address] [place] [address] MCV (RBC) [Entitic vol] 95.5 78.0-100.0 fL Normal 02-21 [facility] (40453) Comment: Performed By: #### [id number] #### MARCUS Urinalysis Automated [facility] bsection [address] [place] [address] Platelet mean volume 7.9 7.4-11.0 fL Normal 9 [facility] (d) [Entitic vol] System (70633) Comment: Performed By: #### [id number] #### MARCUS Urinalysis Automated [facility] bsection [address] [place] [address] Platelets (Bld) [#/Vol] 66 130-400 E3/mcL Low 2018 [facility] ( 000) Comment: Performed By: #### [id number] #### MARCUS Urinalysis [facility]ated [facility] bsection [address] [place] [address] RBC (Bld) [#/Vol] 4.34 3.90-5.40 E6/mcL Normal 02-21-2019 [facility] () Comment: Performed By: #### [id number] #### MARCUS Urinalysis Automated [facility] bsection [address] [place] [address] WBC (Bld) [#/Vol] 4.2 3.6-11.0 E3/mcL Normal 02-21-2019 [facility] () Comment: Performed By: #### [id number] #### MARCUS Urinalysis [facility]ated [facility] bsection [address] [place] [address] bmp on 2019-02-21 Anion gap [Moles/Vol] 18 10-20 mEq/L Normal 02-22-20 19 [facility] () Comment: Performed By: #### [id number] #### MARCUS Urinalysis Automated [facility] bsection [address] [place] [address] Calcium [Mass/Vol] 8.6 8.6-10.3 mg/dL Normal 02-21-2019 [facility] () Comment: Performed By: #### [id number] #### MARCUS Urinalysis Automated [facility] bsection [address] [place] [address] Chloride [Moles/Vol] 106 98-107 mEq/L Normal 9 [facility] () Comment: Performed By: #### [id number] #### MARCUS Urinalysis Automated [facility] bsection [address] [place] [address] CO2 [Moles/Vol] 16.0 21.0-32.0 mEq/L Low 02-21-2019 [facility] (29279) Comment: Performed By: #### [id number] #### MARCUS Urinalysis Automated [facility] bsection [address] [place] [address] Creatinine [Mass/Vol] 1.4 0.5-1.1 mg/dL High 02-22-20 [facility] (00 000) Comment: Performed By: #### [id number] #### MARCUS Urinalysis Automated [facility] bsection [address] [place] [address] Glucose [Mass/Vol] 165 70-99 mg/dL High 02-21-2019 [facility] (37563) Comment: Performed By: #### [id number] #### MARCUS Urinalysis Automated [facility] bsection [address] [place] [address] Potassium [Moles/Vol] 2.9 3.5-5.3 mEq/L Low 02-22-20 [facility] (00 000) Comment: Performed By: #### [id number] #### MARCUS Urinalysis Automated [facility] bsection [address] [place] [address] Sodium [Moles/Vol] 137 136-145 mEq/L Normal 02-21-2019 [facility] (00 000) Comment: Performed By: #### [id number] #### MARCUS Urinalysis Automated [facility] bsection [address] [place] [address] Urea nitrogen [Mass/Vol] 14 6-23 mg/dL Normal 02-21 [facility] (00 000) Comment: Performed By: #### [id number] #### MARCUS Urinalysis Automated [facility] bsection [address] [place] [address] Urea nitrogen/Creatinine 10.0 5.4-30.0 ratio Normal 02-21 [facility] [Mass ratio] [facility] (54641) Comment: Performed By: #### [id number] #### MARCUS Urinalysis Automated [facility] bsection [address] [place] [address] auto diff on 02-21 Basophils (Bld) [#/Vol] 0.0 0.0-0.2 E3/mcL Normal 2018 [facility] tem (34261) Comment: Order Comment: Order Added b y Discern Expert. Performed By: #### [id number] # ### MARCUS Microbiology Subsection [address] [place] [address] Basophils/100 WBC (Bld) 0.4 0.0-2.0 % Normal 2018 [facility] (00 000) Comment: Order Comment: Order Added b y Discern Expert. Performed By: #### [id number] # ### MARCUS Microbiology Subsection [address] [place] [address] Eos Absolute 0.1 0.0-0.7 E3/mcL Normal 02-21-2019 [facility] (38722) Comment: Order Comment: Order Added b y Discern Expert. Performed By: #### [id number] # ### MARCUS Microbiology Subsection [address] [place] [address] Eosinophils/100 WBC (Bld) 1.4 0.0-11.0 % Normal [facility] (00 000) Comment: Order Comment: Order Added b y Discern Expert. Performed By: #### [id number] # ### MARCUS Microbiology Subsection [address] [place] [address] Lymphocytes (Bld) [#/Vol] 1.0 1.2-3.4 E3/mcL Low [facility] (00 000) Comment: Order Comment: Order Added b y Discern Expert. Performed By: #### [id number] # ### MARCUS Microbiology Subsection [address] [place] [address] Lymphocytes/100 WBC (Bld) 24.1 20.0-55.0 % Normal [facility] tem (87841) Comment: Order Comment: Order Added b y Discern Expert. Performed By: #### [id number] # ### MARCUS Microbiology Subsection [address] [place] [address] Cassia Absolute 0.5 0.0-0.7 E3/mcL Normal 02-21-2019 [facility] (19076) Comment: Order Comment: Order Added b y Discern Expert. Performed By: #### [id number] # ### MARCUS Microbiology Subsection [address] [place] [address] Monocytes/100 WBC (Bld) 10.8 0.0-10.0 % High 2018 [facility] (00 000) Comment: Order Comment: Order Added b y Discern Expert. Performed By: #### [id number] # ### MARCUS Microbiology Subsection [address] [place] [address] Neutro Absolute 2.7 1.4-6.5 E3/mcL Normal 02-21-2019 [facility] (21887) Comment: Order Comment: Order Added b y Discern Expert. Performed By: #### [id number] # ### MARCUS Microbiology Subsection [address] [place] [address] Neutro Auto 63.3 37.0-75.0 % Normal 02-21-2019 [facility] (35705) Comment: Order Comment: Order Added erma Aldana Expert. Performed By: #### [id number] # ### MARCUS Microbiology Subsection [address] [place] [address] ammonia on Ammonia (P) [Mass/Vol] 55 16-53 mcmol/L High 02-21- [facility] (00 000) Comment: Performed By: #### [id number] # ### MARCUS Microbiology Subsection [address] [place] [address] acetamnphn lvl on Acetaminoph Lvl <10 10-30 Normal 02-21-2019 [facility] (62914) Comment: Performed By: #### [id number] # ### MARCUS Microbiology Subsection [address] [place] [address] nm myocardial perfusion single - stress only on 2018-12-26 NM Nuclear Report Normal 12-26-2018 [facility] Patient: PABLO OSMAN (15034) SINGLE - Med Rec#: [id number] (Age): 1975(43y) STRESS ONLY Height: Study Date: [...] imaging protocol was followed using Tc-99m tetrofosmin ([employer]) injected intravenously. For the stress portion of [...] on 2018-12-26 Nuclear Report 12-26-2018 [facility] (89450) Patient: PABLO OSMAN [facility] Rec#: [id number] (Age): 1975(43y ) Height: Study Date: 019 [...] RVPI Interface, Rad In Heartlab X per EchoStand In - 12/26/2018 3:48 PM EDT Nuclear Report 12-26-2018 [facility] (67729) Patient: PABLO OSMAN [facility] Rec#: [id number] (Age): 1975(43y) Height: Study Date: 12/26/2018 Weight: [...] 2 Views Exam Date/Time: Normal 019 [facility] 12/21/2018 04:05 EST [facility] Reason for Exam: (00 000) Cough Report STUDY: XR Chest 2 Views; 12/21/2018 4:05 am INDICATION: Cough. COMPARISON: 10/02/2018 ACCESSION NUMBER(S): [id number] ORDERING CLINICIAN: Bob Wick FINDINGS: No significant [...] Influenzae A Ag Negative Negative Normal 12-21-2018 [facility] (00 000) Comment: Result Comment: Test Perform ed by PCR Testing Performed By: #### [id number] #### MARCUS Urinalysis Automated [facility] bsection [address] [place] [address] Influenzae B Ag Negative Negative Normal 12-21-2018 [facility] (00 000) Comment: Result Comment: Test Perform ed by PCR Testing Performed By: #### [id number] #### MARCUS Urinalysis Automated [facility] bsection [address] [place] [address] ua complete on 2018 Color (U) Minerva Yellow Abnormal 12-12-2018 [facility] (02477) Comment: Performed By: #### [id number] # ### MARCUS RemChem [address] [place] [address] Glucose (U) [Mass/Vol] Negative Negative mg/dL Normal [address] [place] [address] Sys tem (79763) Comment: Performed By: #### [id number] # ### MARCUS RemChem [address] [place] [address] Ketones Ql (U) Trace Normal 12-12-2018 [facility] (54684) Comment: Performed By: #### [id number] # ### MARCUS RemChem [address] [place] [address] RBC (U) [#/Vol] 3-5 0-3 Abnormal 12-12-2018 [facility] (54032) Comment: Performed By: #### [id number] # ### MARCUS RemChem [address] [place] [address] UA Blood 2+ Negative Abnormal 12-12-2018 [facility] (01040) Comment: Performed By: #### [id number] # ### MARCUS RemChem [address] [place] [address] UA Clarity Cloudy Clear Abnormal 12-12-2018 [facility] (66529) Comment: Performed By: #### [id number] # ### MARCUS RemChem [address] [place] [address] UA Hyal Cast 5-10 0-2 Abnormal 12-12-2018 [facility] (43246) Comment: Performed By: #### [id number] # ### MARCUS RemChem [address] [place] [address] UA Leuk Est 3+ Negative Abnormal 12-12-2018 [facility] (52901) Comment: Performed By: #### [id number] # ### MARCUS RemChem [address] [place] [address] UA Nitrite Negative Negative Normal 12-12-2018 [facility] (14646) Comment: Performed By: #### [id number] # ### MARCUS RemChem [address] [place] [address] UA pH 5.0 4.6-8.0 Normal 12-12-2018 [facility] (33220) Comment: Performed By: #### [id number] # ### MARCUS RemChem [address] [place] [address] UA Protein Negative Negative Normal 12-12-2018 [facility] (26651) Comment: Performed By: #### [id number] # ### MARCUS RemChem [address] [place] [address] UA Spec Grav 1.020 1.003-1.030 Normal 12-12-2018 [facility] (70202) Comment: Performed By: #### [id number] # ### MARCUS RemChem [address] [place] [address] UA Squam Epithelial 20-30 0-5 Abnormal 12-12-2018 [facility] (35658) Comment: Performed By: #### [id number] # ### MARCUS RemChem [address] [place] [address] UA Urobilinogen 2.0 mg/dL Abnormal 12-12-2018 [facility] (86499) Comment: Result Comment: Due to a man ufacturing issue, low positive urobilinogen results may be fasely positi ve. Correlate with urine bilirubin and additional clinical/laborato ry findings to assess the risk of hemolytic anemia or liver disease. If clinically indicated, repeat testing with an alternate method is availabl e by contacting the laboratory within 24 hours. Performed By: #### [id number] # ### MARCUS RemChem [address] [place] [address] UA WBC 10-20 0-5 Abnormal 12-12-2018 [facility] (31152) Comment: Performed By: #### [id number] # ### MARCUS RemChem [address] [place] [address] Urobilinogen Qn (U) Negative Negative Normal 12-12-2018 [facility] (00 000) Comment: Performed By: #### [id number] # ### MARCUS RemChem [address] [place] [address] u drug screen on 06-12-24 U Amph Scr Negative Negative Normal 12-12-2018 [facility] (74688) Comment: Performed By: #### [id number] # ### MARCUS RemChem [address] [place] [address] U Kalyani Scr Negative Negative Normal 12-12-2018 [facility] (35118) Comment: Performed By: #### [id number] # ### MARCUS RemChem [address] [place] [address] U Benzodia Scr Negative Negative Normal 12-12-2018 [facility] (47233) Comment: Performed By: #### [id number] # ### MARCUS RemChem [address] [place] [address] U Cannab Scr Negative Negative Normal 12-12-2018 [facility] (27764) Comment: Performed By: #### [id number] # ### MARCUS RemChem [address] [place] [address] U Cocaine Scr Negative Negative Normal 12-12-2018 [facility] (19443) Comment: Performed By: #### [id number] # ### MARCUS RemChem [address] [place] [address] U Opiate Scr Negative Negative Normal 12-12-2018 [facility] (22125) Comment: Performed By: #### [id number] # ### MARCUS RemChem [address] [place] [address] U PCP Scr Negative Negative Normal 12-12-2018 [facility] (78121) Comment: Performed By: #### [id number] # ### MARCUS JeriChem [facility] [place] [address] troponin-i on 12-12 Troponin I.cardiac .01 .00-.03 ng/mL Normal 12-12-2018 [facility] [Mass/Vol] Health [facility] (62864) Comment: Performed By: #### [id number] # ### MARCUS Rem[facility] [address] [place] [address] magnesium on 12-12 Magnesium [Mass/Vol] 2.0 1.6-2.4 mg/dL Normal 9 [facility] (00 000) Comment: Performed By: #### [id number] # ### MARCUS Rem[facility] [address] [place] [address] hep func panel on Albumin [Mass/Vol] 4.4 3.4-5.0 gm/dL Normal 12-12-2018 [facility] (00 000) Comment: Performed By: #### [id number] # ### MARCUS Rem[facility] [address] [place] [address] Albumin/Globulin [Mass 1.3 1.1-1.9 ratio Normal [facility]] Health Sys tem (17378) Comment: Performed By: #### [id number] # ### MARCUS RemChem [address] [place] [address] Alk Phos 69 33-110 Int._Unit/L Normal 12-12-2018 [facility] (10554) Comment: Performed By: #### [id number] # ### MARCUSShawn WilcoxChem [address] [place] [address] ALT [Catalytic 34 7-45 Int._Unit/L Normal 12-12-2018 [facility] activity/Vol [facility] System (59199) Comment: Performed By: #### [id number] # ### MARCUSShawn WilcoxChem [facility] [place] [address] AST [Catalytic 69 9-39 Int._Unit/L High 12-12-2018 [facility] activity/Vol] [facility] (69812) Comment: Performed By: #### [id number] # ### MARCUS JeriChem [facility] [place] [address] Bili Direct 0.26 0.00-0.30 mg/dL Normal 12-12-2018 [facility] (06578) Comment: Performed By: #### [id number] # ### MARCUS [place] [address] [place] [address] Bili Indirect 0.57 mg/dL Normal 12-12-2018 [facility] (99979) Comment: Result Comment: No establish ed ranges available for the indirect bilirubin Performed By: #### [id number] # ### MARCUS [address] [address] Bili Total 0.83 0.00-1.20 mg/dL Normal 12-12-2018 [facility] (24431) Comment: Performed By: #### [id number] # ### MARCUS [address] [place] [address] Globulin (S) [Mass/Vol] 3.0 2.0-4.0 G/DL Normal 2018 [facility] (00 000) Comment: Performed By: #### [id number] # ### MARCUS [address] [place] [address] Protein [Mass/Vol] 7.7 6.4-8.2 gm/dL Normal 12-12-2018 [facility] (00 000) Comment: Performed By: #### [id number] # ### MARCUS JeriAkaRx [facility] [place] [address] ethanol on Ethanol [Mass/Vol] <10 <=10 mg/dL Normal 12-12-2018 [facility] (59460) Comment: Performed By: #### [id number] # ### MARCUS JeriChem [address] [place] [address] egfr on 2018-12-12 GFR/1.73 sq M predicted 42 mL/min/1.73 m2 Normal 0 12-12-2018 [facility] among non-blacks [facility] (69003) (S/P/Bld) [Vol rate/Area] Comment: Order Comment: With T4fr Ref kurt Performed By: #### [id number] # ### MARCUS JeriAkaRx [facility] [place] [address] GFR/1.73 sq M predicted 35 mL/min/1.73 m2 Normal 0 12-12-2018 [facility] among non-blacks [facility] (00830) (S/P/Bld) [Vol rate/Area] Comment: Order Comment: With T4fr Ref kurt Performed By: #### [id number] # ### MARCUS RemAkaRx [facility] [place] [address] cbc w/ auto diff on 2018-12-12 Erythrocyte distribution 13.8 11.5-14.5 % Normal 12-12 [facility] width (RBC) [Ratio] [facility] (31693) Comment: Performed By: #### [id number] # ### MARCUS WilcoxAkaRx [facility] [place] [address] Hematocrit (Bld) [Volume 44.1 36.0-48.0 % Normal 12-12 [facility] fraction] Health Sys tem (77119) Comment: Performed By: #### [id number] # ### MARCUS Rem[facility] [address] [place] [address] Hemoglobin (Bld) 14.4 12.0-16.0 G/DL Normal 12-12-2018 [facility] [Mass/Vol] Health [facility] (02241) Comment: Performed By: #### [id number] # ### MARCUS RemAkaRx [address] [place] [address] MCH (RBC) [Entitic mass] 30.3 27.0-31.0 pg Normal 12-12 [facility] (00 000) Comment: Performed By: #### [id number] # ### MARCUS [address] [place] [address] MCHC (RBC) [Mass/Vol] 32.7 33.0-37.0 G/DL Low 12-12-19 [facility] (00 000) Comment: Performed By: #### [id number] # ### MARCUS [address] [place] [address] MCV (RBC) [Entitic vol] 92.9 78.0-100.0 fL Normal 12-12 [facility] (53526) Comment: Performed By: #### [id number] # ### MARCUS [address] [place] [address] Platelet mean volume 8.1 7.4-11.0 fL Normal 9 [facility] (Bld) [Entitic vol] System (71247) Comment: Performed By: #### [id number] # ### MARCUS [address] [address] Platelets (Bld) [#/Vol] 122 130-400 E3/mcL Low 2018 [facility] (00 000) Comment: Performed By: #### [id number] # ### MARCUS [address] [address] RBC (Bld) [#/Vol] 4.75 3.90-5.40 E6/mcL Normal 12-12-2018 [facility] (00 000) Comment: Performed By: #### [id number] # ### MARCUS [address] [place] [address] WBC (Bld) [#/Vol] 6.2 3.6-11.0 E3/mcL Normal 12-12-2018 [facility] (00 000) Comment: Performed By: #### [id number] # ### MARCUS [address] [place] [address] bmp on 2018-12-12 Anion gap [Moles/Vol] 16 10-20 mEq/L Normal 12-12-19 [facility] (00 000) Comment: Performed By: #### [id number] # ### MARCUS [facility] [address] [place] [address] Calcium [Mass/Vol] 9.5 8.6-10.3 mg/dL Normal 12-12-2018 [facility] () Comment: Performed By: #### [id number] # ### MARCUS [facility] [address] [place] [address] Chloride [Moles/Vol] 105 98-107 mEq/L Normal 9 [facility] () Comment: Performed By: #### [id number] # ### MARCUS [facility] [address] [place] [address] CO2 [Moles/Vol] 20.0 21.0-32.0 mEq/L Low 12-12-2018 [facility] (89033) Comment: Performed By: #### [id number] # ### MARCUS [facility] [address] [place] [address] Creatinine [Mass/Vol] 1.6 0.5-1.1 mg/dL High 12-12-19 19 [facility] () Comment: Performed By: #### [id number] # ### MARCUS [facility] [address] [place] [address] Glucose [Mass/Vol] 150 70-99 mg/dL High 12-12-2018 [facility] (18532) Comment: Performed By: #### [id number] # ### MARCUS [facility] [address] [place] [address] Potassium [Moles/Vol] 4.4 3.5-5.3 mEq/L Normal 12-12-19 19 [facility] (00 000) Comment: Performed By: #### [id number] # ### MARCUS [facility] [address] [place] [address] Sodium [Moles/Vol] 137 136-145 mEq/L Normal 12-12-2018 [facility] () Comment: Performed By: #### [id number] # ### MARCUS [facility] [address] [place] [address] Urea nitrogen [Mass/Vol] 27 6-23 mg/dL High 12-12 [facility] (00 000) Comment: Performed By: #### [id number] # ### MARCUS WilcoxA[facility] [address] [place] [address] Urea nitrogen/Creatinine 16.9 5.4-30.0 ratio Normal 12-12 [facility] [Mass ratio] [facility] (91653) Comment: Performed By: #### [id number] # ### MARCUS WilcoxA[facility] [address] [place] [address] auto diff on 12-12 Basophils (Bld) [#/Vol] 0.0 0.0-0.2 E3/mcL Normal 2018 [facility] (76265) Comment: Order Comment: With T4fr Ref kurt Performed By: #### [id number] # ### MARCUS WilcoxAkaRx [facility] [place] [address] Basophils/100 WBC (Bld) 0.4 0.0-2.0 % Normal 2018 [facility] (00 000) Comment: Order Comment: With T4fr Ref kurt Performed By: #### [id number] # ### MARCUS WilcoxAkaRx [address] [place] [address] Eos Absolute 0.0 0.0-0.7 E3/mcL Normal 12-12-2018 [facility] (33137) Comment: Order Comment: With T4fr Ref kurt Performed By: #### [id number] # ### MARCUS WilcoxAkaRx [facility] [place] [address] Eosinophils/100 WBC (Bld) 0.1 0.0-11.0 % Normal 11-19 [facility] (00 000) Comment: Order Comment: With T4fr Ref kurt Performed By: #### [id number] # ### MARCUS WilcoxAkaRx [facility] [place] [address] Lymphocytes (Bld) [#/Vol] 0.6 1.2-3.4 E3/mcL Low 11-19 [facility] (00 000) Comment: Order Comment: With T4fr Ref kurt Performed By: #### [id number] # ### MARCUS Direct[facility] [place] [address] Lymphocytes/100 WBC (Bld) 9.6 20.0-55.0 % Low 11-19 [facility] (00 000) Comment: Order Comment: With T4fr Ref kurt Performed By: #### [id number] # ### MARCUS [facility] [address] [place] [address] Cassia Absolute 0.6 0.0-0.7 E3/mcL Normal 12-12-2018 [facility] (59354) Comment: Order Comment: With T4fr Ref kurt Performed By: #### [id number] # ### MARCUS Jeri[facility] [place] [address] Monocytes/100 WBC (Bld) 9.4 0.0-10.0 % Normal 2018 [facility] (00 000) Comment: Order Comment: With T4fr Ref kurt Performed By: #### [id number] # ### MARCUS [facility] [address] [place] [address] Neutro Absolute 5.0 1.4-6.5 E3/mcL Normal 12-12-2018 [facility] (06176) Comment: Order Comment: With T4fr Ref kurt Performed By: #### [id number] # ### MARCUS [facility] [address] [place] [address] Neutro Auto 80.5 37.0-75.0 % High 12-12-2018 [facility] (50864) Comment: Order Comment: With T4fr Ref kurt Performed By: #### [id number] # ### MARCUS [facility] [address] [place] [address] ua complete on 2018 Color (U) Yellow Yellow Normal 12-03-2018 [facility] (56694) Comment: Performed By: #### [id number] #### MARCUS RemChem [facility] [place] [address] Glucose (U) [Mass/Vol] Negative Negative mg/dL Normal 019 [facility] tem (37493) Comment: Performed By: #### [id number] #### MARCUS Rem[facility] [address] [place] [address] Ketones Ql (U) Negative Negative Normal 12-03-2018 [facility] (39892) Comment: Performed By: #### [id number] #### MARCUS WilcoxChem [address] [place] [address] RBC (U) [#/Vol] 3-5 0-3 Abnormal 12-03-2018 [facility] (92499) Comment: Performed By: #### [id number] #### MARCUSShawn WilcoxChem [address] [place] [address] UA Blood Negative Negative Normal 12-03-2018 [facility] (77667) Comment: Performed By: #### [id number] #### MARCUSShawn WilcoxChem [address] [place] [address] UA Bacteria 1+ None /HPF Abnormal 12-03-2018 [facility] (58260) Comment: Performed By: #### [id number] #### MARCUSShawn WilcoxChem [address] [place] [address] UA Clarity SltCloudy Clear Abnormal 12-03-2018 [facility] (54398) Comment: Performed By: #### [id number] #### MARCUSShawn WilcoxChem [address] [place] [address] UA Leuk Est Trace Negative Normal 12-03-2018 [facility] (62848) Comment: Performed By: #### [id number] #### MARCUS Rem[facility] [address] [place] [address] UA Nitrite Negative Negative Normal 12-03-2018 [facility] (20494) Comment: Performed By: #### [id number] #### MARCUSShawn WilcoxChem [address] [place] [address] UA pH 6.0 4.6-8.0 Normal 12-03-2018 [facility] (05743) Comment: Performed By: #### [id number] #### MARCUS Rem[facility] [address] [place] [address] UA Protein Negative Negative Normal 12-03-2018 [facility] (42994) Comment: Performed By: #### [id number] #### MARCUS Rem[facility] [address] [place] [address] UA Spec Grav 1.016 1.003-1.030 Normal 12-03-2018 [facility] (05393) Comment: Performed By: #### [id number] #### MARCUS Rem[facility] [address] [place] [address] UA Squam Epithelial 10-20 0-5 Abnormal 12-03-2018 [facility] (89664) Comment: Performed By: #### [id number] #### MARCUS Zelaya [facility] [place] [address] UA Urobilinogen Negative Normal 12-03-2018 [facility] (03438) Comment: Result Comment: Due to a man ufacturing issue, low positive urobilinogen results may be fasely positi ve. Correlate with urine bilirubin and additional clinical/laborato ry findings to assess the risk of hemolytic anemia or liver disease. If clinically indicated, repeat testing with an alternate method is availabl e by contacting the laboratory within 24 hours. Performed By: #### [id number] #### MARCUS WilcoxAkaRx [facility] [place] [address] UA WBC 5-10 0-5 Abnormal 12-03-2018 [facility] (32395) Comment: Performed By: #### [id number] #### MARCUS WilcoxAkaRx [facility] [place] [address] Urobilinogen Qn (U) Negative Negative Normal 12-03-2018 [facility] (00 000) Comment: Performed By: #### [id number] #### MARCUS WilcoxAkaRx [address] [place] [address] u bhcg qlt on 12-03 HCG.beta subunit Qn Neg Neg m[IU]/mL Normal 12-03-2018 [facility] (00 000) Comment: Performed By: #### [id number] #### MARCUSShawn WilcoxAkaRx [facility] [place] [address] lipase level on 201 06-19-16 Lipase Lvl 38 9-82 Int._Unit/L Normal 12-03-2018 [facility] (36545) Comment: Performed By: #### [id number] #### MARCUS WilcoxAkaRx [facility] [place] [address] egfr on 2018-12-03 GFR/1.73 sq M predicted 56 mL/min/1.73 m2 Normal 0 12-03-2018 [facility] among non-blacks [facility] (74765) (S/P/Bld) [Vol rate/Area] Comment: Order Comment: Order added erma Aldana Expert. Performed By: #### [id number] #### MARCUS RemAka[facility] [address] [place] [address] GFR/1.73 sq M predicted 46 mL/min/1.73 m2 Normal 0 12-03-2018 [facility] among non-blacks [facility] (74969) (S/P/Bld) [Vol rate/Area] Comment: Order Comment: Order added erma Aldana Expert. Performed By: #### [id number] #### MARCUS RemAkaRx [address] [place] [address] ct abdomen/pelvis w/o contrast on 2018-12-03 CT Abdomen/Pelvis w/o Exam Date/Time: Normal Confucianist Contrast 12/03/2018 00:[address] [facility] Reason for Exam: Sys tem (17249) Pain Report STUDY: CT Abdomen/Pelvis w/o Contrast; 12/03/2018 12:08 am INDICATION: Pain. COMPARISON: 09/22/2018 ACCESSION NUMBER(S): [id number] ORDERING CLINICIAN: Heidy Lane TECHNIQUE: Axial noncontrast [...] Albumin [Mass/Vol] 3.6 3.4-5.0 gm/dL Normal 12-03-2018 [facility] (00 000) Comment: Performed By: #### [id number] #### MARCUS [facility] [address] [place] [address] Albumin/Globulin [Mass 1.5 1.1-1.9 ratio Normal [address] [place] [address] Health Sys tem (20741) Comment: Performed By: #### [id number] #### MARCUS [facility] [address] [place] [address] Alk Phos 69 33-110 Int._Unit/L Normal 12-03-2018 [facility] (37449) Comment: Performed By: #### [id number] #### MARCUS Rem[facility] [address] [place] [address] ALT [Catalytic 13 7-45 Int._Unit/L Normal 12-03-2018 [facility] (27239) Comment: Performed By: #### [id number] #### MARCUS Rem[facility] [address] [place] [address] Anion gap [Moles/Vol] 12 10-20 mEq/L Normal 12-03-19 19 [facility] (00 000) Comment: Performed By: #### [id number] #### MARCUS [facility] [address] [place] [address] AST [Catalytic 19 9-39 Int._Unit/L Normal 12-03-2018 [facility] (96973) Comment: Performed By: #### [id number] #### MARCUS [facility] [address] [place] [address] Bili Total 0.35 0.00-1.20 mg/dL Normal 12-03-2018 [facility] (19563) Comment: Performed By: #### [id number] #### MARCUS Rem[facility] [address] [place] [address] Calcium [Mass/Vol] 8.3 8.6-10.3 mg/dL Low 12-03-2018 [facility] (53342) Comment: Performed By: #### [id number] #### MARCUS [facility] [address] [place] [address] Chloride [Moles/Vol] 110 98-107 mEq/L High [facility] () Comment: Performed By: #### [id number] #### MARCUS Rem[facility] [address] [place] [address] CO2 [Moles/Vol] 22.0 21.0-32.0 mEq/L Normal 12-03-2018 [facility] () Comment: Performed By: #### [id number] #### MARCUS [facility] [address] [place] [address] Creatinine [Mass/Vol] 1.3 0.5-1.1 mg/dL High 12-03-19 [facility] (00 000) Comment: Performed By: #### [id number] #### MARCUS [facility] [address] [place] [address] Globulin (S) [Mass/Vol] 2.0 2.0-4.0 G/DL Normal 2018 [facility] ( 000) Comment: Performed By: #### [id number] #### MARCUS [facility] [address] [place] [address] Glucose [Mass/Vol] 133 70-99 mg/dL High 12-03-2018 [facility] (79652) Comment: Performed By: #### [id number] #### MARCUS [facility] [address] [place] [address] Potassium [Moles/Vol] 4.2 3.5-5.3 mEq/L Normal 12-03-19 [facility] (00 000) Comment: Performed By: #### [id number] #### MARCUS [facility] [address] [place] [address] Protein [Mass/Vol] 6.0 6.4-8.2 gm/dL Low 12-03-2018 [facility] (95940) Comment: Performed By: #### [id number] #### MARCUS JeriAkaRx [facility] [place] [address] Sodium [Moles/Vol] 140 136-145 mEq/L Normal 12-03-2018 [facility] (00 000) Comment: Performed By: #### [id number] #### MARCUS [place] [place] [place] [address] Urea nitrogen [Mass/Vol] 9 6-23 mg/dL Normal 12-03 [facility] (00 000) Comment: Performed By: #### [id number] #### MARCUS [address] [place] [address] Urea nitrogen/Creatinine 6.9 5.4-30.0 ratio Normal 12-03 [facility] [Mass ratio] [facility] (40082) Comment: Performed By: #### [id number] #### MARCUS [address] [address] cbc w/ auto diff on 2018-12-03 Erythrocyte distribution 12.9 11.5-14.5 % Normal 12-03 [facility] width (RBC) [Ratio] Health System (20524) Comment: Performed By: #### [id number] #### MARCUS Wilcox[address] [address] Hematocrit (Bld) [Volume 42.4 36.0-48.0 % Normal 12-03 [facility] fraction] Health Sys tem (82031) Comment: Performed By: #### [id number] #### MARCUSShawn [address] [place] [place] [address] Hemoglobin (Bld) 14.1 12.0-16.0 G/DL Normal 12-03-2018 [facility] [Mass/Vol] Health Sy stem (07685) Comment: Performed By: #### [id number] #### MARCUS [address] [place] [address] MCH (RBC) [Entitic mass] 30.5 27.0-31.0 pg Normal 12-03 [facility] (00 000) Comment: Performed By: #### [id number] #### MARCUS Zelaya [facility] [place] [address] MCHC (RBC) [Mass/Vol] 33.3 33.0-37.0 G/DL Normal 12-03-19 19 [facility] (00 000) Comment: Performed By: #### [id number] #### MARCUS Zelaya [address] [place] [address] MCV (RBC) [Entitic vol] 91.5 78.0-100.0 fL Normal 12-03 [facility] Sys tem (01829) Comment: Performed By: #### [id number] #### MARCUS Zelaya [facility] [place] [address] Platelet mean volume (Bld) 7.2 7.4-11.0 fL Low [facility] [Entitic vol] System (05664) Comment: Performed By: #### [id number] #### MARCUS Wilcox[address] [address] Platelets (Bld) [#/Vol] 121 130-400 E3/mcL Low 2018 [facility] (00 000) Comment: Performed By: #### [id number] #### MARCUS Wilcox[address] [address] RBC (Bld) [#/Vol] 4.64 3.90-5.40 E6/mcL Normal 12-03-2018 [facility] (00 000) Comment: Performed By: #### [id number] #### MARCUS [address] [place] [address] WBC (Bld) [#/Vol] 4.5 3.6-11.0 E3/mcL Normal 12-03-2018 [facility] (00 000) Comment: Performed By: #### [id number] #### MARCUS Zelaya [facility] [place] [address] auto diff on 2019-0 2-16 Basophils (Bld) [#/Vol] 0.0 0.0-0.2 E3/mcL Normal 2018 [facility] tem (91281) Comment: Order Comment: Order added b y Discern Expert. Performed By: #### [id number] #### MARCUS WilcoxAkaRx [facility] [place] [address] Basophils/100 WBC (Bld) 0.6 0.0-2.0 % Normal 2018 [facility] (00 000) Comment: Order Comment: Order added b y Discern Expert. Performed By: #### [id number] #### MARCUS JeriAkaRx [address] [place] [address] Eos Absolute 0.1 0.0-0.7 E3/mcL Normal 12-03-2018 [facility] (54683) Comment: Order Comment: Order added b y Discern Expert. Performed By: #### [id number] #### [facility] Jeri[facility] [address] [place] [address] Eosinophils/100 WBC (Bld) 2.6 0.0-11.0 % Normal 11-18 [facility] (00 000) Comment: Order Comment: Order added b y Discern Expert. Performed By: #### [id number] #### [facility] Directly [address] [place] [address] Lymphocytes (Bld) [#/Vol] 1.2 1.2-3.4 E3/mcL Normal 11-18 [facility] tem (71790) Comment: Order Comment: Order added b y Discern Expert. Performed By: #### [id number] #### MARCUS WilcoxAkaRx [address] [place] [address] Lymphocytes/100 WBC (Bld) 27.2 20.0-55.0 % Normal 11-18 [facility] (89532) Comment: Order Comment: Order added b y Discern Expert. Performed By: #### [id number] #### [facility] [employer] [address] [place] [address] Cassia Absolute 0.3 0.0-0.7 E3/mcL Normal 12-03-2018 [facility] (01769) Comment: Order Comment: Order added b y Discern Expert. Performed By: #### [id number] #### MARCUS Direct[facility] [place] [address] Monocytes/100 WBC (Bld) 7.7 0.0-10.0 % Normal 2018 [facility] (00 000) Comment: Order Comment: Order added erma Aldana Expert. Performed By: #### [id number] #### MARCUS [facility] [address] [place] [id number] Neutro Absolute 2.8 1.4-6.5 E3/mcL Normal 12-03-2018 [facility] (25457) Comment: Order Comment: Order added erma Aldana Expert. Performed By: #### [id number] #### MARCUS Zelaya [address] [place] [id number] Neutro Auto 61.9 37.0-75.0 % Normal 12-03-2018 [facility] (74995) Comment: Order Comment: Order added erma Aldana Expert. Performed By: #### [id number] #### MARCUS Zelaya [address] [place] [address] ct head or brain w/ + w/o contrast on 2018-12-01 CT Head or Brain Exam Date/Time: Normal 019 [facility] w/ + w/o Contrast 12/01/2018 12:05 [facility] Reason for Exam: (00 000) ABN GAIT Report STUDY: CT Head or Brain w/ + w/o Contrast; 12/01/2018 12:05 pm INDICATION: ABN GAIT. COMPARISON: 04/29/2016 ACCESSION NUMBER(S): [id number] ORDERING CLINICIAN: Ana Hodge TECHNIQUE: Axial images [...] Ag IA Final Report: Normal 11-27-19 19 [facility] (Unsp spec) [facility] screen negative (000 00) Comment: Performed By: #### [id number] #### MARCUS [facility] [address] [place] [address] lipid panel on 2018 Cholesterol in HDL mass 43 40-59 mg/dL Normal 2018 [facility] (24203) Comment: Performed By: #### GLUX #### Unless otherwise noted, all testing performed by [facility] [address] [facility] [place] [address] CLIA: [id number] [employer] Dispatcher: Ismael vines M.D. Cholesterol in LDL mass 163 10-150 mg/dL High 2018 [facility] (33057) Comment: Performed By: #### GLUX #### Unless otherwise noted, all testing performed by [facility] [address] [facility] [address] [place] [address] CLIA: [id number] [employer] Dispatcher: Ismael vines M.D. Cholesterol in VLDL mass 41 5-40 mg/dL High 11-22 [facility] (94392) Comment: Performed By: #### GLUX #### Unless otherwise noted, all testing performed by [facility] l [address] [place] [address] CLIA: [id number] [employer] Dis[employer] Dispatcher: Ismael vines M.D. Cholesterol mass conc 247 100-199 mg/dL High 11-22-19 19 [facility] (18254) Comment: Performed By: #### GLUX #### Unless otherwise noted, all testing performed by [facility] l [address] [facility]. [place] [address] CLIA: [id number] [employer] Dispatcher: Ismael vines M.D. Cholesterol.total/Cholesterol in HDL 5.7 3.2-5.0 Hig h 11-22-2018 [facility] mass [facility] (31816) Comment: Result Comment: Female Coron xavier Heart Disease Risk Factor (CHDRF): Average risk= 4.4 1/2 Average risk= 3.3 2 times Average risk= 7.1 Performed By: #### GLUX #### Unless otherwise noted, all testing performed by [facility] [address] [facility]. [place] [address] CLIA: [id number] [employer] Dispatcher: Ismael vines M.D. Triglyceride mass conc 206 30-150 mg/dL High 019 [facility] (32803) Comment: Performed By: #### GLUX #### Unless otherwise noted, all testing performed by [address] [place] [address] CLIA: [id number] [employer] Dispatcher: Ismael vines M.D. No panel information on 2018-11-22 Cholesterol in HDL mass conc 43 40 - 59 mg/dL 0 11-22-2018 [facility] (96005) Cholesterol in LDL mass conc 163 10 - 150 mg/dL High 0 11-22-2018 [facility] (94696) Cholesterol in VLDL mass conc 41 5 - 40 mg/dL High 11-22-2018 [facility] (66145) Cholesterol mass conc 247 100 - 199 mg/dL High 11-22-19 19 [facility] (37569) Cholesterol.total/Cholesterol 5.7 OTH - OTH High 11-22-2018 [facility] (05007) in HDL mass ratio Comment: Female Coronary Heart Diseas e Risk Factor (CHDRF): Average risk= 4.4 1/2 Average risk= 3.3 2 times Average risk= 7.1 Interpretation and review Abnormal [facility] (29151) of laboratory results Triglyceride mass conc 206 30 - 150 mg/dL High 019 [facility] (75994) zzplt morph on 2018 Platelet morphology finding ENLARGED Normal [facility] Nom (d) System (00 000) Comment: Performed By: #### [id number] # ### MARCUS [facility] [address] [place] [address] Platelets (Bld) [#/Vol] DECREASED Normal 2018 [facility] (00 000) Comment: Performed By: #### [id number] # ### MARCUS [facility] [address] [place] [address] ua complete on 2018 Color (U) Straw Yellow Normal 11-17-2018 [facility] (06501) Comment: Performed By: #### [id number] # ### MARCUS [facility] [address] [place] [address] Glucose (U) [Mass/Vol] Negative Negative mg/dL Normal 019 [facility] Sys tem (54082) Comment: Performed By: #### [id number] # ### MARCUS [facility] [address] [place] [address] Ketones Ql (U) Negative Negative Normal 11-17-2018 [facility] (75176) Comment: Performed By: #### [id number] # ### MARCUS Rem[facility] [address] [place] [address] UA Blood Negative Negative Normal 11-17-2018 [facility] (19497) Comment: Performed By: #### [id number] # ### MARCUS [facility] [address] [place] [address] UA Clarity Clear Clear Normal 11-17-2018 [facility] (67738) Comment: Performed By: #### [id number] # ### MARCUS [facility] [address] [place] [address] UA Leuk Est Negative Negative Normal 11-17-2018 [facility] (18741) Comment: Performed By: #### [id number] # ### MARCUS [facility] [address] [place] [address] UA Nitrite Negative Negative Normal 11-17-2018 [facility] (81426) Comment: Performed By: #### [id number] # ### MARCUS WilcoxChem [address] [place] [address] UA pH 6.0 4.6-8.0 Normal 11-17-2018 [facility] (77809) Comment: Performed By: #### [id number] # ### MARCUS [facility] [address] [place] [address] UA Protein Negative Negative Normal 11-17-2018 [facility] (54728) Comment: Performed By: #### [id number] # ### MARCUS [facility] [address] [place] [address] UA Spec Grav 1.009 1.003-1.030 Normal 11-17-2018 [facility] (77529) Comment: Performed By: #### [id number] # ### MARCUS RemChem [facility] [place] [address] UA Squam Epithelial 0-5 0-5 Normal 11-17-2018 [facility] (72196) Comment: Performed By: #### [id number] # ### MARCUS [facility] [address] [place] [address] UA Urobilinogen Negative Normal 11-17-2018 [facility] (02750) Comment: Result Comment: Due to a man ufacturing issue, low positive urobilinogen results may be fasely positi ve. Correlate with urine bilirubin and additional clinical/laborato ry findings to assess the risk of hemolytic anemia or liver disease. If clinically indicated, repeat testing with an alternate method is availabl e by contacting the laboratory within 24 hours. Performed By: #### [id number] # ### MARCUS [facility] [address] [place] [address] UA WBC 0-5 0-5 Normal 11-17-2018 [facility] (95254) Comment: Performed By: #### [id number] # ### MARCUS Rem[facility] [address] [place] [address] Urobilinogen Qn (U) Negative Negative Normal 11-17-2018 [facility] (00 000) Comment: Performed By: #### [id number] # ### MARCUS Zelaya [address] [place] [address] u bhcg qlt on 11-17 HCG.beta subunit Qn Neg Neg m[IU]/mL Normal 11-17-2018 [facility] (00 000) Comment: Performed By: #### [id number] # ### MARCUS Zelaya [facility] [place] [address] morph on 2018-11-17 RBC morphology finding Nom NORMAL Normal [facility] (Bld) System (00 000) Comment: Order Comment: Order Added b y Discern Expert. Performed By: #### [id number] # ### MARCUS Zelaya [facility] [place] [address] lipase level on 201 06-18-31 Lipase Lvl 48 9-82 Int._Unit/L Normal 11-17-2018 [facility] (05906) Comment: Performed By: #### [id number] # ### MARCUS [address] [address] hep func panel on 2 Albumin [Mass/Vol] 3.8 3.4-5.0 gm/dL Normal 11-17-2018 [facility] (00 000) Comment: Performed By: #### [id number] # ### MARCUS [address] [place] [place] [address] Albumin/Globulin [Mass 1.8 1.1-1.9 ratio Normal [address] [place] [address]] Health Sys tem (43247) Comment: Performed By: #### [id number] # ### MARCUS Nathalie [facility] [place] [address] Alk Phos 59 33-110 Int._Unit/L Normal 11-17-2018 [facility] (45269) Comment: Performed By: #### [id number] # ### MARCUS [facility] [address] [place] [address] ALT [Catalytic 18 7-45 Int._Unit/L Normal 11-17-2018 [facility] activity/Vol] Health System (91374) Comment: Performed By: #### [id number] # ### MARCUSShawn WilcoxChem [address] [place] [address] AST [Catalytic 28 9-39 Int._Unit/L Normal 11-17-2018 [facility] activity/[facility] (91736) Comment: Performed By: #### [id number] # ### MARCUS [address] [place] [address] Bili Direct 0.07 0.00-0.30 mg/dL Normal 11-17-2018 [facility] (86576) Comment: Performed By: #### [id number] # ### MARCUS Zelaya [facility] [place] [address] Bili Indirect 0.38 mg/dL Normal 11-17-2018 [facility] (52207) Comment: Result Comment: No establish ed ranges available for the indirect bilirubin Performed By: #### [id number] # ### MARCUSShawn Zelaya [address] [place] [address] Bili Total 0.45 0.00-1.20 mg/dL Normal 11-17-2018 [facility] (32409) Comment: Performed By: #### [id number] # ### MARCUSShawn Zelaya [address] [place] [address] Globulin (S) [Mass/Vol] 2.0 2.0-4.0 G/DL Normal 2018 [facility] (00 000) Comment: Performed By: #### [id number] # ### MARCUSShawn Wilcox[address] [address] Protein [Mass/Vol] 5.9 6.4-8.2 gm/dL Low 11-17-2018 [facility] (00249) Comment: Performed By: #### [id number] # ### [facility] [address] [place] [address] egfr on 2018-11-17 GFR/1.73 sq M predicted 56 mL/min/1.73 m2 Normal 0 11-17-2018 [facility] among non-blacks MDRD [facility] (29040) (S/P/Bld) [Vol rate/Area] Comment: Order Comment: Order added b y Discern Expert. Performed By: #### [id number] # ### MARCUSShawn [address] [address] [place] [address] GFR/1.73 sq M predicted 46 mL/min/1.73 m2 Normal 0 11-17-2018 [facility] among non-blacks [facility] (00726) (S/P/Bld) [Vol rate/Area] Comment: Order Comment: Order added b y Discern Expert. Performed By: #### [id number] # ### MARCUSShawn Zelaya [address] [place] [address] cbc w/ auto diff on 2018-11-17 Erythrocyte distribution 13.2 11.5-14.5 % Normal 11-17 [facility] width (RBC) [Ratio] Health System (64831) Comment: Performed By: #### [id number] # ### MARCUS JeriChem [facility] [place] [address] Hematocrit (Bld) [Volume 41.0 36.0-48.0 % Normal 11-17 [facility] fraction] Health Sys tem (41826) Comment: Performed By: #### [id number] # ### MARCUS JeriChem [facility] [place] [address] Hemoglobin (Bld) 13.8 12.0-16.0 G/DL Normal 11-17-2018 [facility] [Mass/Vol] Health Sy stem (55928) Comment: Performed By: #### [id number] # ### MARCUS JeriChem [address] [place] [address] MCH (RBC) [Entitic mass] 30.9 27.0-31.0 pg Normal 11-17 [facility] (00 000) Comment: Performed By: #### [id number] # ### MARCUS RemChem [address] [place] [address] MCHC (RBC) [Mass/Vol] 33.6 33.0-37.0 G/DL Normal 11-17-19 19 [facility] (00 000) Comment: Performed By: #### [id number] # ### MARCUS RemChem [address] [place] [address] MCV (RBC) [Entitic vol] 91.9 78.0-100.0 fL Normal 11-17 [facility] Sys tem (30172) Comment: Performed By: #### [id number] # ### MARCUS Jeri[employer] [address] [place] [address] Platelet mean volume 7.6 7.4-11.0 fL Normal 9 [facility] (Bld) [Entitic vol] System (49452) Comment: Performed By: #### [id number] # ### MARCUS [employer] [address] [place] [address] Platelets (Bld) [#/Vol] 82 130-400 E3/mcL Low 2018 [facility] (00 000) Comment: Performed By: #### [id number] # ### MARCUS JeriAkaRx [facility] [place] [address] RBC (Bld) [#/Vol] 4.46 3.90-5.40 E6/mcL Normal 11-17-2018 [facility] ( 000) Comment: Performed By: #### [id number] # ### MARCUS WilcoxAkaRx [facility] [place] [address] WBC (Bld) [#/Vol] 4.2 3.6-11.0 E3/mcL Normal 11-17-2018 [facility] ( 000) Comment: Performed By: #### [id number] # ### MARCUS JeriAkaRx [facility] [place] [address] bmp on 2018-11-17 Anion gap [Moles/Vol] 11 10-20 mEq/L Normal 11-17-19 19 [facility] ( 000) Comment: Performed By: #### [id number] # ### MARCUS WilcoxAkaRx [address] [place] [address] Calcium [Mass/Vol] 8.7 8.6-10.3 mg/dL Normal 11-17-2018 [facility] ( 000) Comment: Performed By: #### [id number] # ### MARCUS JeriAkaRx [address] [place] [address] Chloride [Moles/Vol] 108 98-107 mEq/L High 9 [facility] ( 000) Comment: Performed By: #### [id number] # ### MARCUS RemAkaRx [address] [place] [address] CO2 [Moles/Vol] 21.0 21.0-32.0 mEq/L Normal 11-17-2018 [facility] (00 000) Comment: Performed By: #### [id number] # ### MARCUS [employer] [address] [place] [address] Creatinine [Mass/Vol] 1.2 0.5-1.1 mg/dL High 11-17-19 19 [facility] (00 000) Comment: Performed By: #### [id number] # ### MARCUS [employer] [address] [place] [address] Glucose [Mass/Vol] 103 70-99 mg/dL High 11-17-2018 [facility] (30941) Comment: Performed By: #### [id number] # ### MARCUS Jeri[employer] [address] [place] [address] Potassium [Moles/Vol] 3.7 3.5-5.3 mEq/L Normal 11-17-19 19 [facility] (00 000) Comment: Performed By: #### [id number] # ### MARCUS Jer[facility] [place] [address] Sodium [Moles/Vol] 136 136-145 mEq/L Normal 11-17-2018 [facility] (00 000) Comment: Performed By: #### [id number] # ### MARCUS [facility]i[employer] [address] [place] [address] Urea nitrogen [Mass/Vol] 15 6-23 mg/dL Normal 11-17 [facility] (00 000) Comment: Performed By: #### [id number] # ### MARCUS Jeri[employer] [address] [place] [address] Urea nitrogen/Creatinine 12.5 5.4-30.0 ratio Normal 11-17 [facility] [Mass ratio] [facility] (43911) Comment: Performed By: #### [id number] # ### MARCUS [employer] [address] [place] [address] auto diff on 11-17 Basophils (Bld) [#/Vol] 0.0 0.0-0.2 E3/mcL Normal 2018 [facility] Sys tem (04135) Comment: Order Comment: Order Added b y Discern Expert. Performed By: #### [id number] # ### MARCUS WilcoxChem [address] [place] [address] Basophils/100 WBC (Bld) 0.3 0.0-2.0 % Normal 2018 [facility] (00 000) Comment: Order Comment: Order Added erma Aldana Expert. Performed By: #### [id number] # ### MARCUS WilcoxChem [address] [place] [address] Eos Absolute 0.1 0.0-0.7 E3/mcL Normal 11-17-2018 [facility] (53792) Comment: Order Comment: Order Added b y Discern Expert. Performed By: #### [id number] # ### MARCUS [employer] [address] [place] [address] Eosinophils/100 WBC (Bld) 2.4 0.0-11.0 % Normal 10-20 [facility] (00 000) Comment: Order Comment: Order Added erma Aldana Expert. Performed By: #### [id number] # ### MARCUS JeriAkaRx [address] [place] [address] Lymphocytes (Bld) [#/Vol] 1.2 1.2-3.4 E3/mcL Normal 10-20 [facility] tem (78838) Comment: Order Comment: Order Added erma Aldana Expert. Performed By: #### [id number] # ### MARCUS WilcoxChem [address] [place] [address] Lymphocytes/100 WBC (Bld) 27.6 20.0-55.0 % Normal 10-20 [facility] (77661) Comment: Order Comment: Order Added erma lizama Discern Expert. Performed By: #### [id number] # ### MARCUS RemChem [address] [place] [address] Cassia Absolute 0.4 0.0-0.7 E3/mcL Normal 11-17-2018 [facility] (13674) Comment: Order Comment: Order Added b y Discern Expert. Performed By: #### [id number] # ### MARCUS RemChem [address] [place] [address] Monocytes/100 WBC (Bld) 8.8 0.0-10.0 % Normal 2018 [facility] (00 000) Comment: Order Comment: Order Added erma Aladna Expert. Performed By: #### [id number] # ### MARCUS Zelaya [facility] [place] [id number] Neutro Absolute 2.5 1.4-6.5 E3/mcL Normal 11-17-2018 [facility] (79428) Comment: Order Comment: Order Added erma Aldana Expert. Performed By: #### [id number] # ### MARCUS Zelaya [address] [place] [address] Neutro Auto 60.4 37.0-75.0 % Normal 11-17-2018 [facility] (35329) Comment: Order Comment: Order Added erma Aldana Expert. Performed By: #### [id number] # ### MARCUS [place] [id number] lab miscellaneous o n 2018-10-28 Status See Ref Lab Report Normal 10-28-2018 [facility] (97514) Comment: Performed By: #### [id number] # ### MARCUS Kostascorky [address] [place], [place] [id number] zzplt morph on 2018 Platelet morphology finding NORMAL Normal [facility] System (00 000) Comment: Performed By: #### [id number] # ### MARCUS Kenyoncorky [facility] [place] [id number] Platelets (d) [#/Vol] DECREASED Normal 2018 [facility] (00 000) Comment: Performed By: #### [id number] # ### MARCUS Kostascorky [address] [place], [place] [id number] valproic acid on 05-11-08 Valpro Acid Lvl 91 50-100 microgram/mL Normal 10-26-2018 [facility] (00 000) Comment: Performed By: #### [id number] # ### MARCUS Kostaso [address] [place], [place] [id number] manual diff on 2018 Band form neutrophils/100 WBC 1 0-1 Normal 10-26-2018 [facility] (d) System (00 000) Comment: Order Comment: Order Added erma Aldana Expert. Performed By: #### [id number] # ### MARCUS WilcoxHemo [address] [place] [address] Basophil Man 0 0-1 % Normal 10-26-2018 [facility] (09527) Comment: Order Comment: Order Added b dl Discern Expert. Performed By: #### [id number] # ### MARCUS WilcoxHemo [address] [place] [address] Eosinophils/100 WBC (Bld) 3 0-5 % Normal [facility] (08820) Comment: Order Comment: Order Added b y Discern Expert. Performed By: #### [id number] # ### MARCUS WilcoxHemo [address] [place] [address] Lymphocytes/100 WBC (Bld) 37 14-48 % Normal [facility] (00 000) Comment: Order Comment: Order Added b y Discern Expert. Performed By: #### [id number] # ### MARCUS JeriHemo [address] [place] [address] Monocyte Man 8 1-11 % Normal 10-26-2018 [facility] (82112) Comment: Order Comment: Order Added b y Discern Expert. Performed By: #### [id number] # ### MARCUS JeriHemo [address] [place] [address] RBC morphology finding Nom NORMAL Normal [facility] System (00 000) Comment: Order Comment: Order Added b y Discern Expert. Performed By: #### [id number] # ### MARCUS JeriHemo [address] [place] [address] Segs Man 51 37-75 % Normal 10-26-2018 [facility] (14845) Comment: Order Comment: Order Added b y Discern Expert. Performed By: #### [id number] # ### MARCUS JeriHemo [address] [place] [address] lab miscellaneous o n 2018-10-26 Test Name topamax Normal 10-26-2018 [facility] (06286) Comment: Performed By: #### [id number] # ### MARCUS JeriHemo [address] [place] [address] egfr on 2018-10-26 GFR/1.73 sq M predicted 45 mL/min/1.73 m2 Normal 0 10-26-2018 [facility] among non-blacks MDRD [facility] (19191) (S/P/Bld) [Vol rate/Area] Comment: Order Comment: Order Added erma y Katya Expert. Performed By: #### [id number] # ### MARCUS Kenyono [facility] [place] [address] GFR/1.73 sq M predicted 37 mL/min/1.73 m2 Normal 0 10-26-2018 [facility] among non-blacks [facility] (86675) (S/P/Bld) [Vol rate/Area] Comment: Order Comment: Order Added erma Aldana Expert. Performed By: #### [id number] # ### MARCUS [address] [address] cmp on 2018-10-26 Albumin [Mass/Vol] 4.2 3.4-5.0 gm/dL Normal 10-26-2018 [facility] (00 000) Comment: Performed By: #### [id number] # ### MARCUS Kenyono [address] [place] [address] Albumin/Globulin [Mass 1.6 1.1-1.9 ratio Normal 019 [facility] Sys tem (61689) Comment: Performed By: #### [id number] # ### MARCUS Kenyono [facility] [place] [address] Alk Phos 66 33-110 Int._Unit/L Normal 10-26-2018 [facility] System (71891) Comment: Performed By: #### [id number] # ### MARCUS Kenyono [facility] [place] [address] ALT [Catalytic 22 7-45 Int._Unit/L Normal 10-26-2018 [facility] activity/Vol Health System (15131) Comment: Performed By: #### [id number] # ### MRACUSShawn WilcoxHemo [facility] [place] [address] Anion gap [Moles/Vol] 12 10-20 mEq/L Normal 10-26-19 19 [facility] (00 000) Comment: Performed By: #### [id number] # ### MARCUS WilcoxHemo [address] [place] [address] AST [Catalytic 33 9-39 Int._Unit/L Normal 10-26-2018 [facility] (58204) Comment: Performed By: #### [id number] # ### MARCUS WilcoxHemo [address] [place] [address] Bili Total 0.38 0.00-1.20 mg/dL Normal 10-26-2018 [facility] (49620) Comment: Performed By: #### [id number] # ### MARCUS WilcoxHemo [address] [place] [address] Calcium [Mass/Vol] 9.2 8.6-10.3 mg/dL Normal 10-26-2018 [facility] (00 000) Comment: Performed By: #### [id number] # ### MARCUS WilcoxHemo [facility] [place] [address] Chloride [Moles/Vol] 110 98-107 mEq/L High [facility] () Comment: Performed By: #### [id number] # ### MARCUS WilcoxHemo [address] [place] [address] CO2 [Moles/Vol] 24.0 21.0-32.0 mEq/L Normal 10-26-2018 [facility] (00 000) Comment: Performed By: #### [id number] # ### MARCUS WilcoxHemo [address] [place] [address] Creatinine [Mass/Vol] 1.5 0.5-1.1 mg/dL High 10-26-19 19 [facility] (00 000) Comment: Performed By: #### [id number] # ### MARCUS RemHemo [address] [place] [address] Globulin (S) [Mass/Vol] 3.0 2.0-4.0 G/DL Normal 2018 [facility] (00 000) Comment: Performed By: #### [id number] # ### MARCUS RemHemo [address] [place] [address] Glucose [Mass/Vol] 97 70-99 mg/dL Normal 10-26-2018 [facility] (97485) Comment: Performed By: #### [id number] # ### MARCUS WilcoxHemo [address] [place] [address] Potassium [Moles/Vol] 4.9 3.5-5.3 mEq/L Normal 10-26-19 [facility] (00 000) Comment: Performed By: #### [id number] # ### MARCUS WilcoxHemo [address] [place] [address] Protein [Mass/Vol] 6.9 6.4-8.2 gm/dL Normal 10-26-2018 [facility] (00 000) Comment: Performed By: #### [id number] # ### MARCUS WilcoxHemo [facility] [place] [address] Sodium [Moles/Vol] 141 136-145 mEq/L Normal 10-26-2018 [facility] (00 000) Comment: Performed By: #### [id number] # ### MARCUS WilcoxHemo [facility] [place] [address] Urea nitrogen [Mass/Vol] 17 6-23 mg/dL Normal 10-26 [facility] (00 000) Comment: Performed By: #### [id number] # ### MARCUS WilcoxHemo [address] [place] [address] Urea nitrogen/Creatinine 11.3 5.4-30.0 ratio Normal 10-26 [facility] [Mass ratio] Health System (34258) Comment: Performed By: #### [id number] # ### MARCUS JeriHemo [facility] [place] [address] cbc w/ auto diff on 2018-10-26 Erythrocyte distribution 13.2 11.5-14.5 % Normal 10-26 [facility] width (RBC) [Ratio] Health System (22730) Comment: Performed By: #### [id number] # ### MARCUS WilcoxHemo [facility] [place] [address] Hematocrit (Bld) [Volume 44.4 36.0-48.0 % Normal 10-26 [facility]] [facility] Sys tem (02166) Comment: Performed By: #### [id number] # ### MARCUSShawn WilcoxHemo [facility] [place] [address] Hemoglobin (Bld) 14.8 12.0-16.0 G/DL Normal 10-26-2018 [facility] [Mass/Vol] Health Sy stem (99255) Comment: Performed By: #### [id number] # ### MARCUS WilcoxHemo [address] [place] [address] MCH (RBC) [Entitic mass] 30.7 27.0-31.0 pg Normal 10-26 [facility] (00 000) Comment: Performed By: #### [id number] # ### MARCUS WilcoxHemo [facility] [place] [address] MCHC (RBC) [Mass/Vol] 33.3 33.0-37.0 G/DL Normal 10-26-19 19 [facility] () Comment: Performed By: #### [id number] # ### MARCUS WilcoxHemo [facility] [place] [address] MCV (RBC) [Entitic vol] 92.1 78.0-100.0 fL Normal 10-26 [facility] Sys tem (67264) Comment: Performed By: #### [id number] # ### MARCUS WilcoxHemo [facility] [place] [address] Platelet mean volume 7.8 7.4-11.0 fL Normal 9 [facility] (Bld) [Entitic vol] System (23836) Comment: Performed By: #### [id number] # ### MARCUS RemHemo [facility] [place] [address] Platelets (Bld) [#/Vol] 93 130-400 E3/mcL Low 2018 [facility] ( 000) Comment: Performed By: #### [id number] # ### MARCUS RemHemo [address] [place] [address] RBC (Bld) [#/Vol] 4.82 3.90-5.40 E6/mcL Normal 10-26-2018 [facility] (00 000) Comment: Performed By: #### [id number] # ### MARCUS RemHemo [address] [place] [address] WBC (Bld) [#/Vol] 4.7 3.6-11.0 E3/mcL Normal 10-26-2018 [facility] (00 000) Comment: Performed By: #### [id number] # ### MARCUS RemHemo [address] [place] [address] xr spine lumbosacral 2 or 3 views on 2018-10-14 XR Spine Lumbosacral Exam Date/Time: Normal [facility] 2 or 3 Views 10/14/2018 15:28 [facility] Reason for Exam: (00 000) Back pain Report STUDY: XR Spine Lumbosacral 2 or 3 Views; 10/14/2018 3:28 pm INDICATION: Back pain. COMPARISON: 01/21/2017 ACCESSION NUMBER(S): [id number] ORDERING CLINICIAN: Moi De La Cruz FINDINGS: [...] pm Signed by: Bhupinder Berger MD Technologist: [facility] ua complete on 2017 Color (U) Yellow Yellow Normal 10-14-2018 [facility] (28629) Comment: Performed By: #### [id number] # ### MARCUS RemHemo [facility] [place] [address] Glucose (U) [Mass/Vol] Negative Negative mg/dL Normal 018 [facility] Sys tem (11682) Comment: Performed By: #### [id number] # ### MARCUS RemHemo [address] [place] [address] Ketones Ql (U) Negative Negative Normal 10-14-2018 [facility] (71841) Comment: Performed By: #### [id number] # ### MARCUS RemHemo [facility] [place] [address] RBC (U) [#/Vol] 10-20 0-3 Abnormal 10-14-2018 [facility] (01576) Comment: Performed By: #### [id number] # ### MARCUS WilcoxHemo [address] [place] [address] UA Blood Negative Negative Normal 10-14-2018 [facility] (11287) Comment: Performed By: #### [id number] # ### MARCUS WilcoxHemo [address] [place] [address] UA Clarity Cloudy Clear Abnormal 10-14-2018 [facility] (89071) Comment: Performed By: #### [id number] # ### MARCUS WilcoxHemo [facility] [place] [address] UA Hyal Cast 5-10 0-2 Abnormal 10-14-2018 [facility] (63872) Comment: Performed By: #### [id number] # ### MARCUS WilcoxHemo [facility] [place] [address] UA Leuk Est 3+ Negative Abnormal 10-14-2018 [facility] (78360) Comment: Performed By: #### [id number] # ### MARCUS WilcoxHemo [address] [place] [address] UA Mucous Trace Trace Abnormal 10-14-2018 [facility] (86501) Comment: Performed By: #### [id number] # ### MARCUS WilcoxHemo [address] [place] [address] UA Nitrite Negative Negative Normal 10-14-2018 [facility] (49747) Comment: Performed By: #### [id number] # ### MARCUS WilcoxHemo [address] [place] [address] UA pH 7.0 4.6-8.0 Normal 10-14-2018 [facility] (60606) Comment: Performed By: #### [id number] # ### MARCUS WilcoxHemo [address] [place] [address] UA Protein Negative Negative Normal 10-14-2018 [facility] (75031) Comment: Performed By: #### [id number] # ### MARCUS WilcoxHemo [address] [place] [address] UA Spec Grav 1.016 1.003-1.030 Normal 10-14-2018 [facility] (95625) Comment: Performed By: #### [id number] # ### MARCUS WilcoxHemo [address] [place] [address] UA Squam Epithelial >30 0-5 Abnormal 10-14-2018 [facility] (27216) Comment: Performed By: #### [id number] # ### MARCUS WilcoxHemo [address] [place] [address] UA Urobilinogen Negative Normal 10-14-2018 [facility] (72872) Comment: Result Comment: Due to a man ufacturing issue, low positive urobilinogen results may be fasely positi ve. Correlate with urine bilirubin and additional clinical/laborato ry findings to assess the risk of hemolytic anemia or liver disease. If clinically indicated, repeat testing with an alternate method is availabl e by contacting the laboratory within 24 hours. Performed By: #### [id number] # ### MARCUS WilcoxHemo [address] [place] [address] UA WBC 10-20 0-5 Abnormal 10-14-2018 [facility] (83563) Comment: Performed By: #### [id number] # ### MARCUS WilcoxHemo [address] [place] [address] Urobilinogen Qn (U) Negative Negative Normal 10-14-2018 [facility] (00 000) Comment: Performed By: #### [id number] # ### MARCUS WilcoxHemo [facility] [place] [address] xr chest ap portable on 2018-10-02 XR Chest AP Exam Date/Time: Normal 10-02-2018 [facility] Portable 10/02/2018 11:20 EST Health System Reason for Exam: (00 000) Chest pain Report STUDY: XR Chest AP Portable; 10/02/2018 11:20 am INDICATION: Chest pain. COMPARISON: 12/15/2017 ACCESSION NUMBER(S): [id number] ORDERING CLINICIAN: Moi De La Cruz FINDINGS: [...] I.cardiac <.01 .00-.03 ng/mL Normal 10-02-2018 [facility] [Mass/Vol] [facility] (00251) Comment: Performed By: #### [id number] # ### [facility] JeriBTI Systemso [facility] [place] [address] Troponin I.cardiac .01 .00-.03 ng/mL Normal 10-02-2018 [facility] [Mass/Vol] [facility] stem (68937) Comment: Performed By: #### [id number] #### [address] [address] ptt on 2018-10-02 aPTT Coag (Bld) 28.3 23.2-36.4 second(s) Normal 10-02-2018 [facility] [Time] [facility] tem (63554) Comment: Performed By: #### [id number] #### MARCUSShawn WilcoxBTI Systemso [address] [place] [address] ptt control ratio o n 2018-10-02 PTT Ratio 0.9 0.8-1.2 ratio Normal 10-02-2018 [facility] (71323) Comment: Order Comment: Order added b y Discern Expert. Performed By: #### [id number] #### M[facility]USShawn [facility]BT[facility] [place] [address] pt on 2018-10-02 INR Coag (PPP) [Relative 1.1 1.0-1.2 {INR} Normal 10-02 [facility] tem (42659) Comment: Result Comment: INR Recommen ded Therapeuptic Ranges: Prophylaxis/treatment of DVT and PE?2.0-3.0 Prevention of systemic embol ism?.2.0-3.0 Mechanical prosthetic values ?2.5-3.5 CRITICAL VALUES?.>4.0 Performed By: #### [id number] #### MARCUS [place] [id number] [place] [address] PT Coag (PPP) [Time] 13.2 11.6-14.6 second(s) Normal 8 [facility] Sys tem (23402) Comment: Performed By: #### [id number] #### MARCUS [address] [address] manual diff on 2017 Anisocytosis Ql (Bld) 2+ Normal 10-02-20 18 [facility] (92375) Comment: Order Comment: Order Added erma Aldana Expert. Performed By: #### [id number] #### MARCUS [address] [address] Band form neutrophils/100 WBC 6 0-1 High 10-02-2018 [facility] (d) System (00 000) Comment: Order Comment: Order Added erma Aldana Expert. Performed By: #### [id number] #### MARCUS Kenyono [address] [place] [address] Basophil Man 0 0-1 % Normal 10-02-2018 [facility] (72536) Comment: Order Comment: Order Added erma Aldana Expert. Performed By: #### [id number] #### MARCUS Kenyono [address] [place] [address] Eosinophils/100 WBC (Bld) 1 0-5 % Normal 09-17 [facility] (76344) Comment: Order Comment: Order Added erma Aldana Expert. Performed By: #### [id number] #### [facility]USShawn WilcoxG[facility] Hospital[facility] [address] [place] [address] Lymphocytes/100 WBC (Bld) 37 14-48 % Normal 09-17 [facility] (00 000) Comment: Order Comment: Order Added b y Discern Expert. Performed By: #### [id number] #### MARCUS WilcoxHemo [address] [place] [address] Putney Man 3 0-0 % High 10-02-2018 [facility] (58780) Comment: Order Comment: Order Added b y Discern Expert. Performed By: #### [id number] #### MARCUS WilcoxHemo [address] [place] [address] Monocyte Man 10 1-11 % Normal 10-02-2018 [facility] (54030) Comment: Order Comment: Order Added b y Discern Expert. Performed By: #### [id number] #### MARCUSShawn WilcoxHemo [address] [place] [address] Poikilocytosis 1+ Normal 10-02-2018 [facility] (65724) Comment: Order Comment: Order Added b y Discern Expert. Performed By: #### [id number] #### MARCUSShawn WilcoxHemo [facility] [place] [id number] Polychromasia 1+ Normal 10-02-2018 [facility] (48541) Comment: Order Comment: Order Added b y Discern Expert. Performed By: #### [id number] #### MARCUSShawn WilcoxBTI Systemso [facility] [place] [id number] RBC morphology finding SEE MORPHOLOGY Normal [facility] Health Sys tem (93386) Comment: Order Comment: Order Added b y Discern Expert. Performed By: #### [id number] #### MARCUSShawn WilcoxHemo [address] [place] [address] Segs Man 43 37-75 % Normal 10-02-2018 [facility] (45434) Comment: Order Comment: Order Added b y Discern Expert. Performed By: #### [id number] #### MARCUSShawn WilcoxBTI Systemso [facility] [place] [address] magnesium on 2017-10 2-16 Magnesium [Mass/Vol] 1.9 1.6-2.4 mg/dL Normal 8 [facility] (00 000) Comment: Performed By: #### [id number] #### MARCUSShawn WilcoxHemo [address] [place] [address] egfr on 2018-10-02 GFR/1.73 sq M predicted 53 mL/min/1.73 m2 Normal 1 12-03-2017 [facility] among non-blacks [facility] (15471) (S/P/Bld) [Vol rate/Area] Comment: Order Comment: Order added b y Katya Expert. Performed By: #### [id number] #### MARCUS JeriHemo [address] [place] [address] GFR/1.73 sq M predicted 44 mL/min/1.73 m2 Normal 1 12-03-2017 [facility] among non-blacks [facility] (54018) (S/P/Bld) [Vol rate/Area] Comment: Order Comment: Order added b dl Aldana Expert. Performed By: #### [id number] #### MARCUS JeriHemo [facility] [place] [address] cbc w/ auto diff on 2018-10-02 Erythrocyte distribution 13.1 11.5-14.5 % Normal 10-02 [facility] width (RBC) [Ratio] Health System (30825) Comment: Performed By: #### [id number] #### MARCUS RemHemo [address] [place] [address] Hematocrit (Bld) [Volume 40.9 36.0-48.0 % Normal 10-02 [facility] fraction] Health Sys tem (77322) Comment: Performed By: #### [id number] #### MARCUS JeriHemo [address] [place] [address] Hemoglobin (Bld) 13.7 12.0-16.0 G/DL Normal 10-02-2018 [facility] [Mass/Vol] Health Sy stem (39265) Comment: Performed By: #### [id number] #### MARCUS RemHemo [address] [place] [address] MCH (RBC) [Entitic mass] 31.0 27.0-31.0 pg Normal 10-02 [facility] (00 000) Comment: Performed By: #### [id number] #### MARCUS RemHemo [address] [place] [address] MCHC (RBC) [Mass/Vol] 33.7 33.0-37.0 G/DL Normal 10-02-20 [facility] (00 000) Comment: Performed By: #### [id number] #### MARCUS WilcoxHemo [facility] [place] [address] MCV (RBC) [Entitic vol] 92.1 78.0-100.0 fL Normal 10-02 [facility] tem (02050) Comment: Performed By: #### [id number] #### MARCUS WilcoxHemo [facility] [place] [address] Platelet mean volume 8.4 7.4-11.0 fL Normal [facility] (Bld) [Entitic vol] System (62040) Comment: Performed By: #### [id number] #### MARCUS WilcoxHemo [facility] [place] [address] Platelets (Bld) [#/Vol] 82 130-400 E3/mcL Low 2017 [facility] (00 000) Comment: Performed By: #### [id number] #### MARCUSShawn WilcoxHemo [address] [place] [address] RBC (Bld) [#/Vol] 4.44 3.90-5.40 E6/mcL Normal 10-02-2018 [facility] (00 000) Comment: Performed By: #### [id number] #### MARCUSShawn WilcoxHemo [address] [place] [address] WBC (Bld) [#/Vol] 5.3 3.6-11.0 E3/mcL Normal 10-02-2018 [facility] (00 000) Comment: Performed By: #### [id number] #### MARCUSShawn WilcoxHemo [address] [place] [address] bmp on 2018-10-02 Anion gap [Moles/Vol] 9 10-20 mEq/L Low 10-02-20 18 [facility] (32766) Comment: Performed By: #### [id number] #### [facility] [address] [place] [address] Calcium [Mass/Vol] 8.4 8.6-10.3 mg/dL Low 10-02-2018 [facility] (63935) Comment: Performed By: #### [id number] #### MARCUS WilcoxHemo [address] [place] [address] Chloride [Moles/Vol] 111 98-107 mEq/L High 8 [facility] (00 000) Comment: Performed By: #### [id number] #### MARCUS RemHemo [address] [place] [address] CO2 [Moles/Vol] 22.0 21.0-32.0 mEq/L Normal 10-02-2018 [facility] ( 000) Comment: Performed By: #### [id number] #### MARCUS JeriHemo [facility] [place] [address] Creatinine [Mass/Vol] 1.3 0.5-1.1 mg/dL High 10-02-20 18 [facility] (00 000) Comment: Performed By: #### [id number] #### MARCUS RemHemo [facility] [place] [address] Glucose [Mass/Vol] 88 70-99 mg/dL Normal 10-02-2018 [facility] (63514) Comment: Performed By: #### [id number] #### MARCUS JeriHemo [facility] [place] [address] Potassium [Moles/Vol] 4.2 3.5-5.3 mEq/L Normal 10-02-20 18 [facility] (00 000) Comment: Performed By: #### [id number] #### MARCUS RemHemo [facility] [place] [address] Sodium [Moles/Vol] 138 136-145 mEq/L Normal 10-02-2018 [facility] ( 000) Comment: Performed By: #### [id number] #### MARCUS RemHemo [address] [place] [address] Urea nitrogen [Mass/Vol] 16 6-23 mg/dL Normal 10-02 [facility] (00 000) Comment: Performed By: #### [id number] #### MARCUS RemHemo [facility] [place] [address] Urea nitrogen/Creatinine 12.3 5.4-30.0 ratio Normal 10-02 [facility] [Mass ratio] [facility] (85481) Comment: Performed By: #### [id number] #### MARCUS Kenyoncorky [address] [place] [address] .manual abs on 2017 Basophil Abs Man 0.0 0.0-0.2 10x3/ Normal 10-02-2018 [facility] (48158) Comment: Order Comment: Order Added erma Aldana Expert. Performed By: #### [id number] #### MARCUSShawn Luong [address] [place] [address] Eos Abs Man 0.1 0.0-0.5 10x3/ Normal 10-02-2018 [facility] (25239) Comment: Order Comment: Order Added erma Aldana Expert. Performed By: #### [id number] #### MARCUS Ag [address] [place] [address] Lymph Abs Man 2.0 1.2-3.4 10x3/ Normal 10-02-2018 [facility] (54984) Comment: Order Comment: Order Added erma Aldana Expert. Performed By: #### [id number] #### MARCUS WilcoxRahul [address] [place] [address] Cassia Abs Man 0.5 0.0-0.7 10x3/ Normal 10-02-2018 [facility] (63733) Comment: Order Comment: Order Added erma Aldana Expert. Performed By: #### [id number] #### MARCUSShawn Luong [address] [place] [address] Segs Abs Man 2.3 1.4-6.5 10x3/ Normal 10-02-2018 [facility] (64396) Comment: Order Comment: Order Added erma Aldana Expert. Performed By: #### [id number] #### MARCUSShawn Luong [facility] [place] [address] c urine on C Urine Final Report: Moderate Normal 018 [facility] Normal skin joe isolated System (15152) Comment: Performed By: #### [id number] #### MARCUS WilcoxHemo [address] [place] [address] ua complete on 2017 Color (U) Yellow Yellow Normal 09-22-2018 [facility] (37325) Comment: Performed By: #### [id number] #### MARCUS WilcoxHemo [address] [place] [address] Glucose (U) [Mass/Vol] Negative Negative mg/dL Normal 018 [facility] tem (12639) Comment: Performed By: #### [id number] #### MARCUS WilcoxHemo [address] [place] [address] Ketones Ql (U) Negative Negative Normal 09-22-2018 [facility] (26295) Comment: Performed By: #### [id number] #### MARCUS WilcoxHemo [facility] [place] [address] RBC (U) [#/Vol] 20-50 0-3 Abnormal 09-22-2018 [facility] (43203) Comment: Performed By: #### [id number] #### MARCUS WilcoxHemo [facility] [place] [address] UA Blood Negative Negative Normal 09-22-2018 [facility] (29350) Comment: Performed By: #### [id number] #### MARCUS WilcoxHemo [address] [place] [address] UA Bacteria 2+ None /HPF Abnormal 09-22-2018 [facility] (53439) Comment: Performed By: #### [id number] #### MARCUSShawn WilcoxHemo [address] [place] [address] UA Clarity Cloudy Clear Abnormal 09-22-2018 [facility] (99563) Comment: Performed By: #### [id number] #### MARCUS RemHemo [address] [place] [address] UA Leuk Est 3+ Negative Abnormal 09-22-2018 [facility] (44463) Comment: Performed By: #### [id number] #### MARCUSShawn WilcoxHemo [address] [place] [address] UA Mucous Trace Trace Abnormal 09-22-2018 [facility] (23631) Comment: Performed By: #### [id number] #### MARCUS WilcoxHemo [address] [place] [address] UA Nitrite Negative Negative Normal 09-22-2018 [facility] (13444) Comment: Performed By: #### [id number] #### MARCUS Kenyono [facility] [place] [address] UA pH 7.0 4.6-8.0 Normal 09-22-2018 [facility] (85539) Comment: Performed By: #### [id number] #### MARCUS WilcoxHemo [facility] [place] [address] UA Protein Negative Negative Normal 09-22-2018 [facility] (47741) Comment: Performed By: #### [id number] #### MARCUS WilcoxHemo [facility] [place] [address] UA Spec Grav 1.014 1.003-1.030 Normal 09-22-2018 [facility] (78285) Comment: Performed By: #### [id number] #### MARCUS WilcoxHemo [address] [place] [address] UA Squam Epithelial >30 0-5 Abnormal 09-22-2018 [facility] (57549) Comment: Performed By: #### [id number] #### MARCUS WilcoxHemo [address] [place] [address] UA Urobilinogen Negative Normal 09-22-2018 [facility] (62620) Comment: Result Comment: Due to a man ufacturing issue, low positive urobilinogen results may be fasely positi ve. Correlate with urine bilirubin and additional clinical/laborato ry findings to assess the risk of hemolytic anemia or liver disease. If clinically indicated, repeat testing with an alternate method is availabl e by contacting the laboratory within 24 hours. Performed By: #### [id number] #### MARCUS WilcoxHemo [facility] [place] [address] UA WBC 20-50 0-5 Abnormal 09-22-2018 [facility] (09167) Comment: Performed By: #### [id number] #### MARCUS WilcoxHemo [facility] [place] [address] Urobilinogen Qn (U) Negative Negative Normal 09-22-2018 [facility] (00 000) Comment: Performed By: #### [id number] #### MARCUS Kenyono [facility] [place] [address] u bhcg qlt on 09-22 HCG.beta subunit Qn Neg Neg m[IU]/mL Normal 09-22-2018 [facility] (00 000) Comment: Performed By: #### [id number] #### MARCUS Kenyono [facility] [place] [address] lipase level on 201 05-29-06 Lipase Lvl 44 9-82 Int._Unit/L Normal 09-22-2018 [facility] (67245) Comment: Performed By: #### [id number] #### MARCUS Kenyono [facility] [place] [address] hep func panel on 2 Albumin [Mass/Vol] 4.7 3.4-5.0 gm/dL Normal 09-22-2018 [facility] (00 000) Comment: Performed By: #### [id number] #### MARCUS Kostaso [address] [place] [address] Albumin/Globulin [Mass 1.7 1.1-1.9 ratio Normal [address] [place] [address]] Health Sys tem (99045) Comment: Performed By: #### [id number] #### MARCUS Kostaso [facility] [place] [address] Alk Phos 67 33-110 Int._Unit/L Normal 09-22-2018 [facility] (41647) Comment: Performed By: #### [id number] #### MARCUS JeriHemo [facility] [place] [address] ALT [Catalytic 19 7-45 Int._Unit/L Normal 09-22-2018 [facility] activity/Vol] Health System (99959) Comment: Performed By: #### [id number] #### MARCUS JeriHemo [address] [place] [address] AST [Catalytic 31 9-39 Int._Unit/L Normal 09-22-2018 [facility] activity/Vol] Health System (06151) Comment: Performed By: #### [id number] #### MARCUS WilcoxHemo [address] [place] [address] Bili Direct 0.12 0.00-0.30 mg/dL Normal 09-22-2018 [facility] (25903) Comment: Performed By: #### [id number] #### MARCUS WilcoxHemo [address] [place] [address] Bili Indirect 0.53 mg/dL Normal 09-22-2018 [facility] (43946) Comment: Result Comment: No establish ed ranges available for the indirect bilirubin Performed By: #### [id number] #### MARCUS WilcoxHemo [address] [place] [address] Bili Total 0.65 0.00-1.20 mg/dL Normal 09-22-2018 [facility] (74497) Comment: Performed By: #### [id number] #### MARCUS WilcoxHemo [address] [place] [address] Globulin (S) [Mass/Vol] 3.0 2.0-4.0 G/DL Normal 2017 [facility] (00 000) Comment: Performed By: #### [id number] #### MARCUS WilcoxHemo [address] [place] [address] Protein [Mass/Vol] 7.4 6.4-8.2 gm/dL Normal 09-22-2018 [facility] (00 000) Comment: Performed By: #### [id number] #### MARCUS WilcoxHemo [address] [place] [address] egfr on 2018-09-22 GFR/1.73 sq M predicted 51 mL/min/1.73 m2 Normal 1 11-23-2017 [facility] among non-blacks [facility] (52063) (S/P/Bld) [Vol rate/Area] Comment: Order Comment: Order Added b y Discern Expert. Performed By: #### [id number] #### MARCUS WilcoxHemo [address] [place] [address] GFR/1.73 sq M predicted 42 mL/min/1.73 m2 Normal 1 11-23-2017 [facility] among non-blacks [facility] (98488) (S/P/Bld) [Vol rate/Area] Comment: Order Comment: Order Added erma Aldana Expert. Performed By: #### [id number] #### MARCUS Ag [address] [place] [address] ct abdomen/pelvis w/o contrast on 2018-09-22 CT Abdomen/Pelvis w/o Exam Date/Time: Normal Confucianist Contrast 09/22/2018 18:[address] [facility] Reason for Exam: Sys tem (03442) Abdominal Pain;Other (please specify) Report STUDY: CT Abdomen/Pelvis w/o Contrast; 09/22/2018 6:11 pm INDICATION: Other (please specify). COMPARISON: CT dated 05/19/2018 ACCESSION NUMBER(S): [id number] ORDERING CLINICIAN: Shilpa Douglas TECHNIQUE: CT of [...] Erythrocyte distribution 13.6 11.5-14.5 % Normal 09-22 [facility] width (RBC) [Ratio] Health System (43929) Comment: Performed By: #### [id number] # ### MARCUS WilcoxHemo [address] [place] [address] Hematocrit (Bld) [Volume 50.0 36.0-48.0 % High 09-22 [facility] fraction] System (00 000) Comment: Performed By: #### [id number] # ### MARCUS WilcoxHemo [facility] [place] [address] Hemoglobin (Bld) 16.9 12.0-16.0 G/DL High 09-22-2018 [facility] [Mass/Vol] [facility] Sy stem (18383) Comment: Performed By: #### [id number] # ### MARCUS WilcoxHemo [facility] [place] [address] MCH (RBC) [Entitic mass] 31.0 27.0-31.0 pg Normal 09-22 [facility] (00 000) Comment: Performed By: #### [id number] # ### MARCUS RemHemo [facility] [place] [address] MCHC (RBC) [Mass/Vol] 33.8 33.0-37.0 G/DL Normal 09-22-20 18 [facility] (00 000) Comment: Performed By: #### [id number] # ### MARCUSShawn WilcoxHemo [facility] [place] [address] MCV (RBC) [Entitic vol] 91.7 78.0-100.0 fL Normal 09-22 [facility] (48597) Comment: Performed By: #### [id number] # ### MARCUS RemHemo [address] [place] [address] Platelet mean volume 8.1 7.4-11.0 fL Normal 8 [facility] (Bld) [Entitic vol] System (71304) Comment: Performed By: #### [id number] # ### MARCUS RemHemo [facility] [place] [address] Platelets (Bld) [#/Vol] 123 130-400 E3/mcL Low 2017 [facility] () Comment: Performed By: #### [id number] # ### MARCUS WilcoxHemo [address] [place] [address] RBC (Bld) [#/Vol] 5.45 3.90-5.40 E6/mcL High 09-22-2018 [facility] () Comment: Performed By: #### [id number] # ### MARCUS WilcoxHemo [facility] [place] [address] WBC (Bld) [#/Vol] 6.6 3.6-11.0 E3/mcL Normal 09-22-2018 [facility] () Comment: Performed By: #### [id number] # ### MARCUS WilcoxHemo [facility] [place] [address] bmp on 2018-09-22 Anion gap [Moles/Vol] 12 10-20 mEq/L Normal 09-22-20 [facility] () Comment: Performed By: #### [id number] #### MARCUS WilcoxHemo [facility] [place] [address] Calcium [Mass/Vol] 9.4 8.6-10.3 mg/dL Normal 09-22-2018 [facility] () Comment: Performed By: #### [id number] #### MARCUS WilcoxHemo [facility] [place] [address] Chloride [Moles/Vol] 110 98-107 mEq/L High [facility] () Comment: Performed By: #### [id number] #### MARCUS WilcoxHemo [address] [place] [address] CO2 [Moles/Vol] 22.0 21.0-32.0 mEq/L Normal 09-22-2018 [facility] () Comment: Performed By: #### [id number] #### MARCUS RemHemo [address] [place] [address] Creatinine [Mass/Vol] 1.4 0.5-1.1 mg/dL High 09-22-20 [facility] () Comment: Performed By: #### [id number] #### MARCUS WilcoxHemo [address] [place] [address] Glucose [Mass/Vol] 93 70-99 mg/dL Normal 09-22-2018 [facility] (30778) Comment: Performed By: #### [id number] #### MARCUS Kenyono [address] [place] [address] Potassium [Moles/Vol] 4.7 3.5-5.3 mEq/L Normal 09-22-20 18 [facility] (00 000) Comment: Performed By: #### [id number] #### [facility] [address] [place] [address] Sodium [Moles/Vol] 139 136-145 mEq/L Normal 09-22-2018 [facility] (00 000) Comment: Performed By: #### [id number] #### MARCUS Kenyono [address] [place] [address] Urea nitrogen [Mass/Vol] 15 6-23 mg/dL Normal 09-22 [facility] (00 000) Comment: Performed By: #### [id number] #### MARCUS Kenyono [address] [place] [address] Urea nitrogen/Creatinine 10.7 5.4-30.0 ratio Normal 09-22 [facility] [Mass ratio] [facility] (25156) Comment: Performed By: #### [id number] #### MARCUS Kenyon[address] [address] auto diff on 2017-10 2 Basophils (Bld) [#/Vol] 0.0 0.0-0.2 E3/mcL Normal 2017 [facility] (84302) Comment: Order Comment: Order Added b y Discern Expert. Performed By: #### [id number] #### MARCUSShawn Kenyono [address] [place] [address] Basophils/100 WBC (Bld) 0.4 0.0-2.0 % Normal 2017 [facility] (00 000) Comment: Order Comment: Order Added b y Discern Expert. Performed By: #### [id number] #### MARCUS RemHemo [address] [place] [address] [place] [address] Eos Absolute 0.1 0.0-0.7 E3/mcL Normal 09-22-2018 [facility] (28323) Comment: Order Comment: Order Added erma Aldana Expert. Performed By: #### [id number] #### MARCUS WilcoxHemo [address] [place] [address] Eosinophils/100 WBC (Bld) 1.6 0.0-11.0 % Normal [facility] (00 000) Comment: Order Comment: Order Added erma Aldana Expert. Performed By: #### [id number] #### MARCUS RemHemo [address] [place] [address] Lymphocytes (Bld) [#/Vol] 2.0 1.2-3.4 E3/mcL Normal [facility] (08107) Comment: Order Comment: Order Added erma Aldana Expert. Performed By: #### [id number] #### MARCUS WilcoxHemo [address] [place] [address] Lymphocytes/100 WBC (Bld) 30.2 20.0-55.0 % Normal [facility] (38005) Comment: Order Comment: Order Added erma Aldana Expert. Performed By: #### [id number] #### MARCUS RemHemo [address] [place] [address] Cassia Absolute 0.6 0.0-0.7 E3/mcL Normal 09-22-2018 [facility] (66703) Comment: Order Comment: Order Added erma Aldana Expert. Performed By: #### [id number] #### MARCUS RemHemo [address] [place] [address] Monocytes/100 WBC (Bld) 9.0 0.0-10.0 % Normal 2017 [facility] (00 000) Comment: Order Comment: Order Added erma Aldana Expert. Performed By: #### [id number] #### MARCUS RemHemo [address] [place] [address] Neutro Absolute 3.9 1.4-6.5 E3/mcL Normal 09-22-2018 [facility] (07118) Comment: Order Comment: Order Added erma Aldana Expert. Performed By: #### [id number] #### MARCUS RemHemo [address] [place] [address] Neutro Auto 58.8 37.0-75.0 % Normal 09-22-2018 [facility] (32276) Comment: Order Comment: Order Added erma Aldana Expert. Performed By: #### [id number] #### MARCUS RemHemo [address] [place] [address] c urine on C Urine Final Report: Few Mixed skin Normal 1 [facility] (53034) Comment: Performed By: #### [id number] # ### MARCUS Microbiology Subsection [address] [place] [address] ua complete on 2017 Color (U) Yellow Yellow Normal 08-15-2018 [facility] (63276) Comment: Order Comment: Straight Cath as needed Performed By: #### [id number] #### MARCUS Urinalysis Automated Suggs bsection [address] [place] [address] Glucose (U) [Mass/Vol] 1+ Negative Abnormal 018 [facility] (00 000) Comment: Order Comment: Straight Cath as needed Performed By: #### [id number] #### MARCUS Urinalysis Automated [employer]gs bsection [address] [place] [address] Ketones Ql (U) Negative Negative Normal 08-15-2018 [facility] (67274) Comment: Order Comment: Straight Cath as needed Performed By: #### [id number] #### MARCUS Urinalysis Automated [employer] bsection [address] [place] [address] RBC (U) [#/Vol] 0-3 0-3 Normal 08-15-2018 [facility] (63842) Comment: Order Comment: Straight Cath as needed Performed By: #### [id number] #### MARCUS Urinalysis Automated [employer]gs bsection [address] [place] [address] UA Blood Negative Negative Normal 08-15-2018 [facility] (81840) Comment: Order Comment: Straight Cath as needed Performed By: #### [id number] #### MARCUS Urinalysis Automated [employer] bsection [address] [place] [address] UA Bacteria Trace None Abnormal 08-15-2018 [facility] (77283) Comment: Order Comment: Straight Cath as needed Performed By: #### [id number] #### MARCUS Urinalysis Automated [employer]gs bsection [address] [place] [address] UA Clarity SltCloudy Clear Abnormal 08-15-2018 [facility] (71759) Comment: Order Comment: Straight Cath as needed Performed By: #### [id number] #### MARCUS Urinalysis Automated [employer]gs bsection [address] [place] [address] UA Hyal Cast 0-2 0-2 Normal 08-15-2018 [facility] (20426) Comment: Order Comment: Straight Cath as needed Performed By: #### [id number] #### MARCUS Urinalysis Automated [employer] bsection [address] [place] [address] UA Leuk Est 1+ Negative Abnormal 08-15-2018 [facility] (70529) Comment: Order Comment: Straight Cath as needed Performed By: #### [id number] #### MARCUS Urinalysis Automated [employer]gs bsection [address] [place] [address] UA Mucous Trace Trace Abnormal 08-15-2018 [facility] (54710) Comment: Order Comment: Straight Cath as needed Performed By: #### [id number] #### MARCUS Urinalysis Automated [employer] bsection [address] [place] [address] UA Nitrite Negative Negative Normal 08-15-2018 [facility] (73136) Comment: Order Comment: Straight Cath as needed Performed By: #### [id number] #### MARCUS Urinalysis Automated [employer] bsection [address] [place] [address] UA pH 7.0 4.6-8.0 Normal 08-15-2018 [facility] (33429) Comment: Order Comment: Straight Cath as needed Performed By: #### [id number] #### MARCUS Urinalysis Automated [employer]gs bsection [address] [place] [address] UA Protein Negative Negative Normal 08-15-2018 [facility] (90301) Comment: Order Comment: Straight Cath as needed Performed By: #### [id number] #### MARCUS Urinalysis Automated [employer]gs bsection [address] [place] [address] UA Spec Grav 1.012 1.003-1.030 Normal 08-15-2018 [facility] (31748) Comment: Order Comment: Straight Cath as needed Performed By: #### [id number] #### MARCUS Urinalysis Automated [employer]gs bsection [address] [place] [address] UA Squam Epithelial 5-10 0-5 Abnormal 08-15-2018 [facility] (53541) Comment: Order Comment: Straight Cath as needed Performed By: #### [id number] #### MARCUS Urinalysis Automated [employer]gs bsection [address] [place] [address] UA Urobilinogen Negative Normal 08-15-2018 [facility] (46658) Comment: Order Comment: Straight Cath as needed Performed By: #### [id number] #### MARCUS Urinalysis Automated [employer]gs bsection [address] [place] [address] UA WBC 10-20 0-5 Abnormal 08-15-2018 [facility] (63178) Comment: Order Comment: Straight Cath as needed Performed By: #### [id number] #### MARCUS Urinalysis Automated [employer]gs bsection [address] [place] [address] Urobilinogen Qn (U) Negative Negative Normal 08-15-2018 [facility] (00 000) Comment: Order Comment: Straight Cath as needed Performed By: #### [id number] #### MARCUS Urinalysis Automated [employer]gs bsection [address] [place] [address] zzplt morph on 2017 Platelet morphology finding NORMAL Normal [facility] (d) System (00 000) Comment: Performed By: #### [id number] #### MARCUS RemHemo [address] [place] [address] Platelets (d) [#/Vol] DECREASED Normal 2017 [facility] (00 000) Comment: Performed By: #### [id number] #### MARCUS [place] [id number] tsh on 2018-08-14 TSH Qn 2.16 0.30-5.60 mcIU/mL Normal 08-14-2018 [facility] (76047) Comment: Order Comment: With T4fr Ref kurt Performed By: #### [id number] # ### MARCUSShawn WilcoxDavid [place] [id number] morph on 2018-08-14 Anisocytosis Ql (Bld) 1+ Normal 08-14-20 18 [facility] (51453) Comment: Order Comment: Order Added b y Discern Expert. Performed By: #### [id number] #### MARCUS [place] [id number] RBC morphology finding SEE MORPHOLOGY Normal [facility] Health Sys tem (92938) Comment: Order Comment: Order Added b y Discern Expert. Performed By: #### [id number] #### MARCUS Wilcox[place] [id number] egfr on 2018-08-14 GFR/1.73 sq M predicted 53 mL/min/1.73 m2 Normal 1 [facility] among non-blacks [facility] (15326) (S/P/Bld) [Vol rate/Area] Comment: Order Comment: Order added b y Discern Expert. Performed By: #### [id number] #### MARCUSShawn WilcoxDavid [place] [id number] GFR/1.73 sq M predicted 44 mL/min/1.73 m2 Normal 1 [facility] among non-blacks [facility] (25114) (S/P/Bld) [Vol rate/Area] Comment: Order Comment: Order added b y Discern Expert. Performed By: #### [id number] #### MARCUSShawn WilcoxDavid [place] [id number] cbc w/ auto diff on 2018-08-14 Erythrocyte distribution 13.2 11.5-14.5 % Normal 08-14 [facility] width (RBC) [Ratio] Health System (58358) Comment: Performed By: #### [id number] # ### MARCUS WilcoxHemo [address] [place] [address] Hematocrit (Bld) [Volume 42.1 36.0-48.0 % Normal 08-14 [facility] (91798) Comment: Performed By: #### [id number] # ### MARCUS WilcoxHemo [address] [place] [address] Hemoglobin (Bld) 14.1 12.0-16.0 G/DL Normal 08-14-2018 [facility] [Mass/Vol] Health Sy stem (40712) Comment: Performed By: #### [id number] # ### MARCUSShawn WilcoxHemo [facility] [place] [address] MCH (RBC) [Entitic mass] 30.8 27.0-31.0 pg Normal 08-14 [facility] (00 000) Comment: Performed By: #### [id number] # ### MARCUSShawn WilcoxHemo [address] [place] [address] MCHC (RBC) [Mass/Vol] 33.5 33.0-37.0 G/DL Normal 08-14-20 18 [facility] (00 000) Comment: Performed By: #### [id number] # ### MARCUSSahwn WilcoxHemo [address] [place] [address] MCV (RBC) [Entitic vol] 91.7 78.0-100.0 fL Normal 08-14 [facility] (88645) Comment: Performed By: #### [id number] # ### MARCUSShawn WilcoxHemo [address] [place] [address] Platelet mean volume 8.8 7.4-11.0 fL Normal 8 [facility] (Bld) [Entitic vol] System (12327) Comment: Performed By: #### [id number] # ### MARCUS [facility] [place] [address] Platelets (Bld) [#/Vol] 78 130-400 E3/mcL Low 2017 [facility] (00 000) Comment: Performed By: #### [id number] # ### MARCUS [facility] [place] [address] RBC (Bld) [#/Vol] 4.60 3.90-5.40 E6/mcL Normal 08-14-2018 [facility] () Comment: Performed By: #### [id number] # ### MARCUS RemHemo [address] [place] [address] WBC (Bld) [#/Vol] 4.2 3.6-11.0 E3/mcL Normal 08-14-2018 [facility] () Comment: Performed By: #### [id number] # ### MARCUS RemHemo [address] [place] [address] bmp on 2018-08-14 Anion gap [Moles/Vol] 13 10-20 mEq/L Normal 08-14-20 [facility] () Comment: Performed By: #### [id number] # ### MARCUS [facility] [address] [place] [address] Calcium [Mass/Vol] 8.3 8.6-10.3 mg/dL Low 08-14-2018 [facility] (43758) Comment: Performed By: #### [id number] # ### MARCUS [facility] [address] [place] [address] Chloride [Moles/Vol] 110 98-107 mEq/L High [facility] () Comment: Performed By: #### [id number] # ### MARCUS [facility] [address] [place] [address] CO2 [Moles/Vol] 21.0 21.0-32.0 mEq/L Normal 08-14-2018 [facility] () Comment: Performed By: #### [id number] # ### MARCUS [facility] [address] [place] [address] Creatinine [Mass/Vol] 1.3 0.6-1.3 mg/dL Normal 08-14-20 [facility] () Comment: Performed By: #### [id number] # ### MARCUS [facility] [address] [place] [address] Glucose [Mass/Vol] 122 70-99 mg/dL High 08-14-2018 [facility] (60162) Comment: Performed By: #### [id number] # ### MARCUS WilcoxChem [address] [place] [address] Potassium [Moles/Vol] 3.3 3.5-5.3 mEq/L Low 08-14-20 [facility] () Comment: Performed By: #### [id number] # ### MARCUSShawn WilcoxChem [facility] [place] [address] Sodium [Moles/Vol] 141 136-145 mEq/L Normal 08-14-2018 [facility] () Comment: Performed By: #### [id number] # ### MARCUS WilcoxChem [address] [place] [address] Urea nitrogen [Mass/Vol] 13 6-23 mg/dL Normal 08-14 [facility] () Comment: Performed By: #### [id number] # ### MARCUSShawn WilcoxChem [address] [place] [address] Urea nitrogen/Creatinine 10.0 5.4-30.0 ratio Normal 08-14 [facility] [Mass ratio] [facility] (99979) Comment: Performed By: #### [id number] # ### MARCUSShawn WilcoxChem [address] [place] [address] auto diff on 2017-10 Basophils (Bld) [#/Vol] 0.0 0.0-0.2 E3/mcL Normal 2017 [facility] (92886) Comment: Order Comment: Order Added b y Discern Expert. Performed By: #### [id number] # ### MARCUS WilcoxHemo [address] [place] [address] Basophils/100 WBC (Bld) 0.7 0.0-2.0 % Normal 2017 [facility] () Comment: Order Comment: Order Added b y Discern Expert. Performed By: #### [id number] # ### MARCUS WilcoxHemo [facility] [place] [address] Eos Absolute 0.1 0.0-0.7 E3/mcL Normal 08-14-2018 [facility] (43469) Comment: Order Comment: Order Added b y Discern Expert. Performed By: #### [id number] # ### MARCUS RemHemo [address] [place] [address] Eosinophils/100 WBC (Bld) 2.2 0.0-11.0 % Normal 07-19 [facility] (00 000) Comment: Order Comment: Order Added b y Discern Expert. Performed By: #### [id number] # ### MARCUS RemHemo [address] [place] [address] Lymphocytes (Bld) [#/Vol] 1.4 1.2-3.4 E3/mcL Normal 07-19 [facility] tem (77361) Comment: Order Comment: Order Added b y Discern Expert. Performed By: #### [id number] # ### MARCUS WilcoxHemo [address] [place] [address] Lymphocytes/100 WBC (Bld) 32.5 20.0-55.0 % Normal 07-19 [facility] tem (98586) Comment: Order Comment: Order Added b y Discern Expert. Performed By: #### [id number] # ### MARCUS RemHemo [address] [place] [address] Cassia Absolute 0.4 0.0-0.7 E3/mcL Normal 08-14-2018 [facility] (81121) Comment: Order Comment: Order Added b y Discern Expert. Performed By: #### [id number] # ### MARCUS WilcoxHemo [address] [place] [address] Monocytes/100 WBC (Bld) 9.7 0.0-10.0 % Normal 2017 [facility] (00 000) Comment: Order Comment: Order Added b y Discern Expert. Performed By: #### [id number] # ### MARCUS RemHemo [address] [place] [address] Neutro Absolute 2.3 1.4-6.5 E3/mcL Normal 08-14-2018 [facility] (04329) Comment: Order Comment: Order Added b y Discern Expert. Performed By: #### [id number] # ### [facility] RemHemo [address] [place] [address] Neutro Auto 54.9 37.0-75.0 % Normal 08-14-2018 [facility] (26480) Comment: Order Comment: Order Added b y Katya Expert. Performed By: #### [id number] # ### MARCUS WilcoxHemcorky [facility] [place] [address] culture, urine on Culture, Urine Test Name: Culture, Urine Normal 06-16-2018 [facility] Culture Status: Counts Include [address] [facility] Culture Report: No significant growth. (27291) Micro Source: Urine - clean catch Comment: Performed By: #### GLUX #### Unless otherwise noted, all testing performed by [facility] l [address] [place], [place] [address] CLIA: [id number] Radioactive Waste Disposal Dispatcher: Ismael vines M.D. No panel information on 2018-06-16 Bilirubin Ql (U) Negative Negative Invalid 06-16-2018 [facility] Interpretation (4321 5) Code Glucose Ql (U) Negative Normal, Invalid 06-16-2018 [facility] Negative Interpretation (4321 5) mg/dL Code Hemoglobin Test Large Negative Abnormal 06-16-2018 [facility] strip Ql (U) (48535) Interpretation and Abnormal Invalid 06-16-2018 [facility] review of Interpretation (4321 5) laboratory results Code Ketones Ql (U) Negative Negative Invalid 06-16-2018 [facility] mg/dL Interpretation (4321 5) Code Leukocyte esterase Small Negative Abnormal 06-16-2018 [facility] Test strip Ql (U) (4 3215) Nitrite Test strip Negative Negative Invalid 06-16-2018 [facility] Ql (U) Interpretation (4321 5) Code pH Test strip (U) 7.5 OTH - OTH [pH] Abnormal 06-16-2018 [facility] (05269) Protein Test strip Trace Negative Abnormal 06-16-2018 [facility] Ql (U) mg/dL (48170) Specific gravity 1.020 OTH - OTH Invalid [facility]-16-[facility]ensity Interpretation (05136) (U) Code Urobilinogen Test 0.2 <2.0, 0.2, mg/d Invalid 06-16-2018 [facility] strip Qn (U) Normal, L Interpretation (4 3215) Negative, Code 1.0, 2.0, <1.0 cur on 2018-05-15 CUR . MICRO - MicrobiologyPROCEDURE: Normal 05-15-2018 [facility] Urine Culture [*1] ACCESSION: [facility] ([place]) (32121) [id number]: Urine, Straight BODY SITE: CatherizedCOLLECTED DATE/TIME: 05/13/2018 22:15 EDT RECEIVED DATE/TIME: 05/14/2018 17:17 EDTSTART DATE/TIME: 05/14/2018 17:17 EDT FREE TEXT SOURCE:PRELIMINARY REPORTSPreliminary Report []Verified Date/Time/Personnel: 05/15/2018 14:09 EDTCulture results pending.Performing Locations*1: This test was performed at: [facility], [address] [place] [address], [address] [place] [address] Comment: Performed By: #### CBC, ADIF F, ANEU ####[place] [address]#### L IP, CMP, GFR ####[place] [address] xr abdomen complete w/decub/erect on 2018-05-14 XR ABDOMEN COMPLETE ORIGINALSupine and Normal 0 05-14-2018 [facility] W/DECUB/ERECT upright views of the [facility] ([place]) abdomen HISTORY: (00 000) Abdominal pain COMPARISON: [...] on 2018-05-14 Patient Summary Documents Normal 04-18 [facility] ([place]) (08714) [facility] edu on Pat Edu Normal 05-14-2018 [facility] ([place]) (81032) [facility] note on 2018-05-14 [facility] Note Normal 0 05-14-2018 [facility] ([place]) (97489) lip on 2018-05-14 Lipase Level 250 73-393 U/L Normal 05-14-2018 [facility]) (52751) Comment: Performed By: #### CBC, ADIF F, ANEU ####[place] [address]#### L IP, CMP, GFR ####[place] [address] cmp on 2018-05-14 Alanine aminotransferase (ALT) 41 10-35 U/L High 05-14-2018 [facility] ([place]) (0000 0) Comment: Performed By: #### CBC, ADIF F, ANEU ####[place] [id number]#### L IP, CMP, GFR ####[place] [address] Albumin 3.4 3.5-5.0 G/dL Low 05-14-2018 [facility] ([place]) (50726) Comment: Performed By: #### CBC, ADIF F, ANEU ####[place] [address]#### L IP, CMP, GFR ####[place] [address] Albumin/Globulin Ratio 1.2 1.1-2.5 ratio Normal 018 [facility] ([place]) (0000 0) Comment: Performed By: #### CBC, ADIF F, ANEU ####[place] [id number]#### L IP, CMP, GFR ####[place] [address] Alk Phos 56 40-135 U/L Normal 05-14-2018 [facility] ([place]) (92771) Comment: Performed By: #### CBC, ADIF F, ANEU ####[place] [address]#### L IP, CMP, GFR ####[place] [address] Aspartate aminotransferase 42 10-40 U/L High [facility] ([place]) ([place]) (0000 0) Comment: Performed By: #### CBC, ADIF F, ANEU ####[place] [address]#### L IP, CMP, GFR ####[place] [address] Bili Total 0.5 0.2-1.0 mg/dL Normal 05-14-2018 [facility] ([place]) (82452) Comment: Performed By: #### CBC, ADIF F, ANEU ####[place] [address]#### L IP, CMP, GFR ####[place] [address] BUN/Creatinine Ratio 14 7-27 ratio Normal 8 [facility] ([place]) (98657) Comment: Performed By: #### CBC, ADIF F, ANEU ####[place] [address]#### L IP, CMP, GFR ####[place] [address] Calcium 8.0 8.4-10.2 mg/dL Low 05-14-2018 [facility] ([place]) (42901) Comment: Performed By: #### CBC, ADIF F, ANEU ####[place] [address]#### L IP, CMP, GFR ####[place] [id number] [address] [place] [address] Chloride 104 98-107 mmol/L Normal 05-14-2018 [facility] ([place]) (39379) Comment: Performed By: #### CBC, ADIF F, ANEU ####Bozena [address] [place], [place] [address]#### L IP, CMP, GFR ####[place] [address] CO2 23 22-29 mmol/L Normal 05-14-2018 [facility] ([place]) (11535) Comment: Performed By: #### CBC, ADIF F, ANEU ####Bozena [address] [place] [address]#### L IP, CMP, GFR ####[place] [address] Creatinine 1.28 0.55-1.02 mg/dL High 05-14-2018 [facility] ([place]) (88872) Comment: Performed By: #### CBC, ADIF F, ANEU ####[address] [place] [place] [address]#### L IP, CMP, GFR ####[place] [address] Electrolyte Balance 9.0 mEq/L Normal 05-14-2018 [facility] ([place]) (27009) Comment: Performed By: #### CBC, ADIF F, ANEU ####[address] [place] [place] [id number]#### L IP, CMP, GFR ####[place] [address] Globulin 2.9 G/dL Normal 05-14-2018 [facility] ([place]) (12986) Comment: Performed By: #### CBC, ADIF F, ANEU ####[address] [place] [place] 253127#### L IP, CMP, GFR ####[place] [address] Glucose mass conc 90 70-105 mg/dL Normal 05-14-2018 [facility] ([place]) (09855) Comment: Performed By: #### CBC, ADIF F, ANEU ####[address] [place] [place], [place] [address]#### L IP, CMP, GFR ####[address] [address] Potassium molar conc 4.6 3.5-5.1 mmol/L Normal 8 [facility] ([place]) (0000 0) Comment: Performed By: #### CBC, ADIF F, ANEU ####Bozena Lprhxfxd249[place] [id number]#### L IP, CMP, GFR ####[place] [address] Protein 6.3 6.4-8.2 G/dL Low 05-14-2018 [facility] ([place]) (91420) Comment: Performed By: #### CBC, ADIF F, ANEU ####Bozena [place] [id number]#### L IP, CMP, GFR ####[place] [address] Sodium 136 136-145 mmol/L Normal 05-14-2018 [facility] ([place]) (60150) Comment: Performed By: #### CBC, ADIF F, ANEU ####Bozena [place] [id number]#### L IP, CMP, GFR ####[address] [address] Urea nitrogen 18 7-18 mg/dL Normal 05-14-2018 [facility] ([place]) (69994) Comment: Performed By: #### CBC, ADIF F, ANEU ####Bozena [place] [id number]#### L IP, CMP, GFR ####[address] [address] .gfr on 2018-05-14 GFR Non- 45 ml/min/1.73sqm Normal 05-14-2018 [facility] ([place]) (95307) Comment: Result Comment: GFR Populati on mean [...] #### CBC, ADIF F, ANEU ####[address] [place], [place] [address]#### L IP, CMP, GFR ####[place] [id number] [address] [place] [address] GFR 55 ml/min/1.73sqm Normal - [facility] ([place]) (0000 0) Comment: Result Comment: GFR Populati [...] #### CBC, ADIF F, ANEU ####[address] [place], [place] [address]#### L IP, CMP, GFR ####[place] [id number] [address] [place] [address] ua on 2018-05-13 UA Appear Slightly Cloudy Clear Invalid Interpretation 0 05-13-2018 [facility] ([place]) (65587) Comment: Performed By: #### UA, PREGU , UAMICAO ####[address] [place], [place] [address] UA Blood Negative Negative Normal 05-13-2018 [facility] ([place]) (21769) Comment: Performed By: #### UA, PREGU , UAMICAO ####[address] [place], [place] [address] UA Leuk Est Small Negative Invalid Interpretation 05-13 [facility] ([place]) (94269) Comment: Performed By: #### UA, PREGU , UAMICAO ####[address] [place], [place] [address] UA Nitrite Negative Negative Normal 05-13-2018 [facility] ([place]) (98659) Comment: Performed By: #### UA, PREGU , UAMICAO ####[address] [place], [place] [address] UA pH 7.5 Normal 05-13-2018 [facility] ([place]) (21685) Comment: Performed By: #### UA, PREGU , UAMICAO ####[address] [place], [place] [address] UA Protein Negative Negative Normal 05-13-2018 [facility] ([place]) (35660) Comment: Performed By: #### UA, PREGU , UAMICAO ####[address] [place], [place] [address] UA Spec Grav 1.005 Invalid Interpretation Code 05-13-2018 [facility] ([place]) (93339) Comment: Performed By: #### UA, PREGU , UAMICAO ####[address] [place], [place] [address] UA Specimen Type Clean Catch Normal 05-13-2018 [facility] ([place]) (34779) Comment: Performed By: #### UA, PREGU , UAMICAO ####[address] [place], [place] [address] UA Urobilinogen 0.2 E.U./dL Normal 05-13-2018 [facility] ([place]) (52283) Comment: Performed By: #### UA, PREGU , UAMICAO ####[address] [place], [place] [address] Urine, color Yellow Normal 05-13-2018 [facility] ([place]) (38480) Comment: Performed By: #### UA, PREGU , UAMICAO ####[address] [place], [place] [address] Urine, glucose Negative Negative mg/dL Normal 05-13-2018 [facility] ([place]) (0000 0) Comment: Performed By: #### UA, PREGU , UAMICAO ####[address] [place], [place] [address] Urine, ketones presence Negative Negative Normal 2017 [facility] ([place]) (63662) Comment: Performed By: #### UA, PREGU , UAMICAO ####[address] [place], [place] [address] Urine, Negative Negative {Ayla'U}/dL Normal 05-13-2018 [facility] urobilinogen Foundat ion ([place]) (85859) Comment: Performed By: #### UA, PREGU , UAMICAO ####[address] [place], [place] [address] pregu on 2018-05-13 HCG ( test) Ql (U) Negative Normal [facility] ([place]) (0000 0) Comment: Performed By: #### UA, PREGU , UAMICAO ####[address] [place], [place] [address] test HCG not Invalid 05-13-2018 [facility] (u) int detected. Interpretation Code [facility] ([place]) (77021) Comment: Performed By: #### UA, PREGU , UAMICAO ####[address] [place], [place] [address] cbc on 2018-05-13 Erythrocyte distribution 13.9 11.5-14.5 % Normal 05-13 [facility] width Auto Ratio (RBC) [facility] ([place]) (85936) Comment: Performed By: #### CBC, ADIF F, ANEU ####[address] [place] [address]#### L IP, CMP, GFR ####[place] [address] Erythrocytes (RBC) 5.57 4.20-5.40 10 6/mcL High 05-13-2018 [facility] ([place]) (0000 0) Comment: Performed By: #### CBC, ADIF F, ANEU ####[place] [address]#### L IP, CMP, GFR ####[place] [address] Hematocrit (HCT) 49.2 37.0-47.0 % High 05-13-2018 [facility] ([place]) (20740) Comment: Performed By: #### CBC, ADIF F, ANEU ####[place] [address]#### L IP, CMP, GFR ####[place] [address] Hemoglobin mass conc 17.1 12.0-16.0 G/dL High 8 [facility] ([facility] ([place]) (82000) Comment: Performed By: #### CBC, ADIF F, ANEU ####[place] [address]#### L IP, CMP, GFR ####[place] [address] MCH 30.6 27.0-31.2 pg Normal 05-13-2018 [facility] ([place]) (37072) Comment: Performed By: #### CBC, ADIF F, ANEU ####[place] [address]#### L IP, CMP, GFR ####[place] [address] MCHC mass conc (RBC) 34.7 33.0-37.0 G/dL Normal 8 [facility] ([place]) (0000 0) Comment: Performed By: #### CBC, ADIF F, ANEU ####[place] [address] [id number]#### L IP, CMP, GFR ####[place] [address] MCV 88.3 80.0-94.0 fL Normal 05-13-2018 [facility] ([place]) (35720) Comment: Performed By: #### CBC, ADIF F, ANEU ####[address] [place] [address]#### L IP, CMP, GFR ####[place] [address] Platelet mean volume 8.0 7.4-10.4 fL Normal 8 [facility] ([facility]) ([place]) (0000 0) Comment: Performed By: #### CBC, ADIF F, ANEU ####[place] [address]#### L IP, CMP, GFR ####[place] [address] Platelets 113 130-400 10 3/mcL Low 05-13-2018 [facility] ([place]) (71169) Comment: Performed By: #### CBC, ADIF F, ANEU ####Bozen[address] [place] [id number]#### L IP, CMP, GFR ####[place] [address] WBC (Leukocytes) 9.10 4.60-10.80 10 3/mcL Normal 05-13-2018 A [facility] ([place]) (0000 0) Comment: Performed By: #### CBC, ADIF F, ANEU ####[place] [address]#### L IP, CMP, GFR ####[place] [address] .urinalysis microscopic (ao) on 2018-05-13 UA Bacteria 1+ /hpf Invalid Interpretation Code 05-13-2018 [facility] ([place]) (60485) Comment: Performed By: #### UA, PREGU , UAMICAO ####[address] [place], [place] [address] UA Squam LOADED None Seen Invalid 05-13-2018 [facility] Epithelial Interpretation [facility] (30825) Comment: Performed By: #### UA, PREGU , UAMICAO ####[address] [place], [place] [address] UA WBC LOADED None Seen Invalid Interpretation 018 [facility]) (20900) Comment: Performed By: #### UA, PREGU , UAMICAO ####[address] [place], [place] [address] Urine, erythrocytes None Seen None Seen Normal 05-13-2018 [facility]) (0000 0) Comment: Performed By: #### UA, PREGU , UAMICAO ####[place] [address] [place], [place] [address] .neuabs on Neutrophil, Absolute 6.70 2.85-6.16 10 3/mcL High 8 [facility] ([place]) (55503) Comment: Performed By: #### CBC, ADIF F, ANEU ####[place] [id number]#### L IP, CMP, GFR ####[address] [address] .auto diff on 05-13 Basophils Auto #/vol 0.00 0.00-0.19 10 3/[facility] Normal 8 [facility] (Bld) [facility]) (44969) Comment: Performed By: #### CBC, ADIF F, ANEU ####[place] [id number]#### L IP, CMP, GFR ####[address] [address] Basophils/100 WBC Auto (d) 0.5 0.0-2.5 % Normal 0 05-13-2018 [facility]) (0000 0) Comment: Performed By: #### CBC, ADIF F, ANEU ####[place] [address]#### L IP, CMP, GFR ####[address] [address] Eosinophils 0.10 0.00-0.40 10 3/mcL Normal 05-13-2018 [facility] ([place]) (42400) Comment: Performed By: #### CBC, ADIF F, ANEU ####[address] [place] [address]#### L IP, CMP, GFR ####[place] [address] Eosinophils/100 leukocytes 0.8 0.0-7.0 % Normal [facility] ([place]) (0000 0) Comment: Performed By: #### CBC, ADIF F, ANEU ####[place] [address]#### L IP, CMP, GFR ####[place] [address] Lymphocytes 1.60 0.77-3.85 10 3/[facility] Normal 05-13-2018 [facility] ([place]) (66825) Comment: Performed By: #### CBC, ADIF F, ANEU ####[address] [place] [address]#### L IP, CMP, GFR ####[place] [address] Lymphocytes/100 leukocytes 18.0 10.0-50.0 % Normal [facility] ([place]) (50264) Comment: Performed By: #### CBC, ADIF F, ANEU ####[place] [address]#### L IP, CMP, GFR ####[place] [address] Monocytes 0.60 0.15-1.00 10 3/[facility] Normal 05-13-2018 [facility] ([place]) (11902) Comment: Performed By: #### CBC, ADIF F, ANEU ####[address] [place], [place] [address]#### L IP, CMP, GFR ####[address] [address] Monocytes/100 leukocytes 6.8 1.7-13.0 % Normal 05-13 [facility] ([place]) (0000 0) Comment: Performed By: #### CBC, ADIF F, ANEU ####[address] [address]#### L IP, CMP, GFR ####[address] [address] Neutrophils/100 WBC Auto 73.9 37.0-80.0 % Normal 05-13 [facility] (d) [facility] ([place]) (98909) Comment: Performed By: #### CBC, ADIF F, ANEU ####[address] [address]#### L IP, CMP, GFR ####[address] [address] urinalysis, routine on 2018-03-15 Bacteria LM.HPF #/area Few NS;RARE Abnormal [address] [place] [address] and (Urine sed) Irene Derek mora (70276) Comment: Performed By: #### GLUX #### Unless otherwise noted, all testing performed by [facility] l [address] [place] [address] CLIA: [id number] Radioactive Waste Disposal Dispatcher: Ismael vines M.D. Bilirubin,Urine Negative NEG;NEGATIVE Normal 03-15-2018 [facility] and Irene Kermit pitals (40696) Comment: Performed By: #### GLUX #### Unless otherwise noted, all testing performed by [facility] l [address] [place] [address] CLIA: [id number] Radioactive Waste Disposal Dispatcher: Ismael vines M.D. Blood,Urine Small NEG;NEGATIVE Abnormal 03-15-2018 [facility] ([id number]) Comment: Performed By: #### GLUX #### Unless otherwise noted, all testing performed by [place] [address] CLIA: [id number] [employer]active [employer] Disposal Dispatcher: Ismael vines M.D. Character Nom (U) Cloudy Normal 03-15-2018 [facility] (20267) Comment: Performed By: #### GLUX #### Unless otherwise noted, all testing performed by [place] [address] CLIA: [id number] Radioactive Waste Disposal Dispatcher: Ismael vines M.D. Color Nom (U) Yellow Normal 03-15-2018 [facility] (10922) Comment: Performed By: #### GLUX #### Unless otherwise noted, all testing performed by [place] [address] CLIA: [id number] Radioactive Waste Disposal Dispatcher: Ismael vines M.D. Glucose Ql (U) Negative NEG;NEGATIVE Normal 03-15-2018 [facility] (42083) Comment: Performed By: #### GLUX #### Unless otherwise noted, all testing performed by [place] [address] CLIA: [id number] Radioactive Waste Disposal Dispatcher: Ismael vines M.D. Ketone,Urine Negative NEG;NEGATIVE Normal 03-15-2018 [facility] (81314) Comment: Performed By: #### GLUX #### Unless otherwise noted, all testing performed by [facility] [address] [place] [address] CLIA: [id number] Radioactive Waste Disposal Dispatcher: Ismael vines M.D. Leuk.Esterase,Urine Large Negative Abnormal 03-15-2018 [facility] (21723) Comment: Performed By: #### GLUX #### Unless otherwise noted, all testing performed by [place] [address] CLIA: [id number] Radioactive [employer] Disposal Dispatcher: Ismael vines M.D. Nitrite,Urine Negative NEG;NEGATIVE Normal 03-15-2018 [facility] (87907) Comment: Performed By: #### GLUX #### Unless otherwise noted, all testing performed by [place] [address] CLIA: [id number] Radioactive Waste Disposal Dispatcher: Ismael vines M.D. pH (U) 5.0 4.5-8.0 [pH] Normal 03-15-2018 [facility] (97538) Comment: Performed By: #### GLUX #### Unless otherwise noted, all testing performed by [place] [address] CLIA: [id number] Radioactive Waste Disposal Dispatcher: Ismael vines M.D. Protein mass conc Negative NEG;NEGATIVE mg/dL Normal [address] [place] [address] ([facility] (06994) Comment: Performed By: #### GLUX #### Unless otherwise noted, all testing performed by [facility] [address] [place] [address] CLIA: [id number] Radioactive [employer] Disposal Dispatcher: Ismael vines M.D. RBC,Urine 8 0-5 /HPF High 03-15-2018 [facility] (86029) Comment: Performed By: #### GLUX #### Unless otherwise noted, all testing performed by [place] [phone] CLIA: [id number] Radioactive [employer] Disposal Dispatcher: Ismael vines M.D. Specific [place],Urine 1.015 1.003-1.029 Normal 03-15 [facility] (67385) Comment: Performed By: #### GLUX #### Unless otherwise noted, all testing performed by [place] [phone] CLIA: [id number] Radioactive [employer] Disposal Dispatcher: Ismael vines M.D. Squamous Epithelial 11 0-40 /HPF Normal 03-15-2018 [facility] (81970) Comment: Performed By: #### GLUX #### Unless otherwise noted, all testing performed by [place] [phone] CLIA: [id number] Radioactive [employer] Disposal Dispatcher: Ismael vines M.D. Urobilinogen,Urine < 2.0 <2 Normal 03-15-2018 [facility] (34348) Comment: Performed By: #### GLUX #### Unless otherwise noted, all testing performed by [place] [phone] CLIA: [id number] Radioactive Waste Disposal Dispatcher: Ismael vines M.D. WBC,Urine 46 0-5 /HPF High 03-15-2018 [facility] (29412) Comment: Performed By: #### GLUX #### Unless otherwise noted, all testing performed by [place] [phone] CLIA: [id number] Radioactive Waste Disposal Dispatcher: Ismael vines M.D. test,urine qual on 2018-03-15 HCG.beta subunit Negative Negative Normal 03-15-2018 [facility] ( test) [facility] (13336[facility] Comment: Result Comment: Rapid test p rocedural [...] otherwise noted, all testing performed by [facility] [address] [facility]. [place] [address] CLIA: [id number] Radioactive Waste Disposal Dispatcher: Ismael vines M.D. lipase on 2018-02-16 9 Lipase enzyme act/vol 288 73-393 U/L Normal 03-15-20 18 [facility] (10165) Comment: Performed By: #### GLUX #### Unless otherwise noted, all testing performed by [facility] [address] [facility]. [place] [address] CLIA: [id number] Radioactive Waste Disposal Dispatcher: Ismael vines M.D. ed cardiac troponin-i on 2018-03-15 Troponin I.cardiac mass < 15 < 45 ng/mL Normal 2017 [facility] (74613) Comment: Result Comment: Elevation of troponin indicates [...] otherwise noted, all testing performed by [facility] [address] [place] [address] CLIA: [id number] Radioactive [employer] Disposal Dispatcher: Ismael vines M.D. comprehensive metabolic panel on 2018-03-15 Albumin mass conc 3.8 3.2-5.2 g/dL Normal 03-15-2018 [facility] (35103) Comment: Performed By: #### GLUX #### Unless otherwise noted, all testing performed by [facility] [address] [place] [address] CLIA: [id number] Radioactive [employer] Disposal Dispatcher: Ismael vines M.D. ALP enzyme act/vol 66 40-150 U/L Normal 03-15-2018 [facility] (51158) Comment: Performed By: #### GLUX #### Unless otherwise noted, all testing performed by [facility] [address] [place] [address] CLIA: [id number] Radioactive [employer] Disposal Dispatcher: Ismael vines M.D. ALT enzyme act/vol 56 14-65 U/L Normal 03-15-2018 [facility] (24494) Comment: Result Comment: This test re sult might be falsely depressed or falsely elevated on samples drawn from patients taking Sulfasalazine and Sulfapyridine. Venipuncture should occur pr ior to taking either of these drugs. Performed By: #### GLUX #### Unless otherwise noted, all testing performed by [facility] [address] [place] [address] CLIA: [id number] Radioactive [employer] Disposal Dispatcher: Ismael vines M.D. AST enzyme act/vol 51 0-45 U/L High 03-15-2018 [facility] (73686) Comment: Result Comment: This test re sult might be falsely depressed or falsely elevated on samples drawn from patients taking Sulfasalazine and Sulfapyridine. Venipuncture should occur pr ior to taking either of these drugs. Performed By: #### GLUX #### Unless otherwise noted, all testing performed by [place] [phone] CLIA: [id number] Radioactive Waste Disposal Dispatcher: Ismael vines M.D. Bilirubin mass conc 0.5 0.3-1.2 mg/dL Normal 03-15-2018 [facility] (43654) Comment: Performed By: #### GLUX #### Unless otherwise noted, all testing performed by [place] [phone] CLIA: [id number] Radio[employer] Disposal Dispatcher: Ismael vines M.D. Calcium mass conc 9.7 8.4-10.2 mg/dL Normal 03-15-2018 [facility] (10384) Comment: Performed By: #### GLUX #### Unless otherwise noted, all testing performed by [place] [phone] CLIA: [id number] Radioactive [employer] Disposal Dispatcher: Ismael vines M.D. Chloride molar conc 105 98-108 mmol/L Normal 03-15-2018 [facility] (60868) Comment: Performed By: #### GLUX #### Unless otherwise noted, all testing performed by [place] [phone] CLIA: [id number] Radio[employer] Disposal Dispatcher: Ismael vines M.D. CO2 molar conc 26 21-32 mmol/L Normal 03-15-2018 [facility] (21800) Comment: Performed By: #### GLUX #### Unless otherwise noted, all testing performed by [place] [address] CLIA: [id number] Radioactive Waste Disposal Dispatcher: Ismael vines M.D. Creatinine mass conc 1.67 0.40-1.10 mg/dL High 8 [facility] (13417) Comment: Performed By: #### GLUX #### Unless otherwise noted, all testing performed by [facility] [address] [place] [address] CLIA: [id number] Radioactive Waste Disposal Dispatcher: Ismael vines M.D. GFR/1.73 sq M predicted 40 >60 ml/min/1.73sq.m Low 03-15-2018 [facility] and among blacks [facility] (50780) rate/area (S/P/Bld) Comment: Result Comment: Amer ican GFR Calc Performed By: #### GLUX #### Unless otherwise noted, all testing performed by [facility] [address] [place] [address] CLIA: [id number] Radioactive Waste Disposal Dispatcher: Ismael vines M.D. GFR/1.73 sq M predicted 33 >60 ml/min/1.73sq.m Low 03-15-2018 [facility] among non-blacks [facility] vol rate/area (S/P/Bld) (87076) Comment: Result Comment: Non- GFR Calc eGFR [...] otherwise noted, all testing performed by [facility] [address] [place] [address] CLIA: [id number] Radioactive Waste Disposal Dispatcher: Ismael vines M.D. Glucose mass conc 88 70-99 mg/dL Normal 03-15-2018 [facility] (01848) Comment: Result Comment: This test re sult might be falsely depressed or falsely elevated on samples drawn from patients taking Sulfasalazine and Sulfapyridine. Venipuncture should occur pr ior to taking either of these drugs. Performed By: #### GLUX #### Unless otherwise noted, all testing performed by [facility] [address] [place] [address] CLIA: [id number] Radioactive [employer] Disposal Dispatcher: Ismael vines M.D. Potassium molar conc 4.4 3.5-5.1 mmol/L Normal 8 [facility] (22550) Comment: Performed By: #### GLUX #### Unless otherwise noted, all testing performed by [facility] [address] [place] [address] CLIA: [id number] Radioactive [employer] Disposal Dispatcher: Ismael vines M.D. Protein mass conc 7.3 6.0-8.0 g/dL Normal 03-15-2018 [facility] (88110) Comment: Performed By: #### GLUX #### Unless otherwise noted, all testing performed by [facility] [address] [place] [address] CLIA: [id number] Radioactive [employer] Disposal Dispatcher: Ismael vines M.D. Sodium molar conc 137 135-145 mmol/L Normal 03-15-2018 [facility] (52377) Comment: Performed By: #### GLUX #### Unless otherwise noted, all testing performed by [facility] [address] [place] [address] CLIA: [id number] Radio[employer] Disposal Dispatcher: Ismael vines M.D. Urea nitrogen mass conc 30 8-25 mg/dL High 2017 [facility] (40778) Comment: Performed By: #### GLUX #### Unless otherwise noted, all testing performed by [facility] [address] [place] [address] CLIA: [id number] Radioactive [employer] Disposal Dispatcher: Ismael vines M.D. cbc with diff on 04-03-29 Basophils #/vol (Bld) 0.1 0-0.2 K/mcL Normal 03-15-20 18 [facility] (92352) Comment: Performed By: #### CBCDIF, E DCTNI, CMET, LIPASE #### Unless otherwise noted, all testing performed by [place] [address] CLIA: [id number] Radioactive Waste Disposal Dispatcher: Ismael vines M.D. Basophils/100 WBC (Bld) 1.1 % Normal 2017 [facility] (75224) Comment: Performed By: #### CBCDIF, E DCTNI, CMET, LIPASE #### Unless otherwise noted, all testing performed by [place] [address] CLIA: [id number] Radioactive Waste Disposal Dispatcher: Ismael vines M.D. Eosinophils #/vol (Bld) 0.2 0-0.5 K/mcL Normal 2017 [facility] (87193) Comment: Performed By: #### CBCDIF, E DCTNI, CMET, LIPASE #### Unless otherwise noted, all testing performed by [facility] [address] [place] [address] CLIA: [id number] Radioactive Waste Disposal Dispatcher: Ismael vines M.D. Eosinophils/100 WBC (Bld) 3.2 % Normal - [facility] (06978) Comment: Performed By: #### CBCDIF, E DCTNI, CMET, LIPASE #### Unless otherwise noted, all testing performed by [facility] [address] [place] [address] CLIA: [id number] Radioactive Waste Disposal Dispatcher: Ismael vines M.D. Erythrocyte distribution 13.4 10.0-14.4 % Normal 03-15 [facility] and width [facility] (RBC) [facility] (09268) Comment: Performed By: #### CBCDIF, E DCTNI, CMET, LIPASE #### Unless otherwise noted, all testing performed by [facility] [address] [place] [address] CLIA: [id number] Radioactive Waste Disposal Dispatcher: Ismael vines M.D. Hematocrit Volume Fraction 47.8 34.4-44.8 % High [facility] and ([facility]) [facility] (67050) Comment: Performed By: #### CBCDIF, E DCTNI, CMET, LIPASE #### Unless otherwise noted, all testing performed by [facility] [address] [place] [address] CLIA: [id number] Radioactive Waste Disposal Dispatcher: Ismael vines M.D. Hemoglobin mass conc 15.7 11.6-15.4 g/dL High 8 [facility] and ([facility]) [facility] (43998) Comment: Performed By: #### CBCDIF, E DCTNI, CMET, LIPASE #### Unless otherwise noted, all testing performed by [facility] [address] [place] [address] CLIA: [id number] Radioactive Waste Disposal Dispatcher: Ismael vines M.D. Lymphocytes #/vol (Bld) 1.4 1.0-3.7 K/mcL Normal 2017 [facility] (83971) Comment: Performed By: #### CBCDIF, E DCTNI, CMET, LIPASE #### Unless otherwise noted, all testing performed by [facility] [address] [place] [address] CLIA: [id number] Radioactive Waste Disposal Dispatcher: Ismael vines M.D. Lymphocytes/100 WBC (Bld) 24.7 % Normal 02-16 [facility] (41323) Comment: Performed By: #### CBCDIF, E DCTNI, CMET, LIPASE #### Unless otherwise noted, all testing performed by [place] [address] CLIA: [id number] Radioactive Waste Disposal Dispatcher: Ismael vines M.D. MCH Entitic mass (RBC) 29.6 27.9-33.9 pg Normal 018 [facility] (95464) Comment: Performed By: #### CBCDIF, E DCTNI, CMET, LIPASE #### Unless otherwise noted, all testing performed by [place] [address] CLIA: [id number] Radioactive Waste Disposal Dispatcher: Ismael vines M.D. MCHC mass conc (RBC) 32.8 33.1-35.1 g/dL Low 8 [facility] (01818) Comment: Performed By: #### CBCDIF, E DCTNI, CMET, LIPASE #### Unless otherwise noted, all testing performed by [facility] [address] [place] [address] CLIA: [id number] Radioactive Waste Disposal Dispatcher: Ismael vines M.D. MCV Entitic volume 90.5 82.6-98.9 FL Normal 03-15-2018 [facility] and (RBC) [facility] (43934) Comment: Performed By: #### CBCDIF, E DCTNI, CMET, LIPASE #### Unless otherwise noted, all testing performed by [place] [address] CLIA: [id number] Radioactive Waste Disposal Dispatcher: Ismael vines M.D. Metamyelocytes/100 WBC (Bld) 2.2 0 % High 0 03-15-2018 [facility] (66489) Comment: Performed By: #### CBCDIF, E DCTNI, CMET, LIPASE #### Unless otherwise noted, all testing performed by [place] [address] CLIA: [id number] Radioactive Waste Disposal Dispatcher: Ismael vines M.D. Monocytes #/vol (Bld) 0.2 0.1-0.6 K/mcL Normal 03-15-20 18 [facility] (39541) Comment: Performed By: #### CBCDIF, E DCTNI, CMET, LIPASE #### Unless otherwise noted, all testing performed by [place] [address] CLIA: [id number] Radioactive Waste Disposal Dispatcher: Ismael vines M.D. Monocytes/100 WBC (Bld) 3.2 % Normal 2017 [facility] (53892) Comment: Performed By: #### CBCDIF, E DCTNI, CMET, LIPASE #### Unless otherwise noted, all testing performed by [place] [address] CLIA: [id number] Radioactive Waste Disposal Dispatcher: Ismael vines M.D. Neutrophils #/vol (Bld) 3.9 1.2-6.9 K/mcL Normal 2017 [facility] (31592) Comment: Performed By: #### CBCDIF, E DCTNI, CMET, LIPASE #### Unless otherwise noted, all testing performed by [facility] [address] [place] [address] CLIA: [id number] Radioactive Waste Disposal Dispatcher: Ismael vines M.D. Nucleated RBC #/vol (Bld) 1 0 /100 WBC High 02-16 [facility] (14675) Comment: Performed By: #### CBCDIF, E DCTNI, CMET, LIPASE #### Unless otherwise noted, all testing performed by [place] [address] CLIA: [id number] Radioactive Waste Disposal Dispatcher: Ismael vines M.D. Platelet mean volume 8.8 7.0-10.6 FL Normal 8 [facility] (82685) Comment: Performed By: #### CBCDIF, E DCTNI, CMET, LIPASE #### Unless otherwise noted, all testing performed by [place] [address] CLIA: [id number] Radioactive Waste Disposal Dispatcher: Ismael vines M.D. Platelets #/vol (Bld) 133 162-402 K/mcL Low 03-15-20 18 [facility] (92299) Comment: Performed By: #### CBCDIF, E DCTNI, CMET, LIPASE #### Unless otherwise noted, all testing performed by [facility] [address] [place] [address] CLIA: [id number] Radioactive Waste Disposal Dispatcher: Ismael vines M.D. RBC #/vol (Bld) 5.29 3.7-5.0 M/mcL High 03-15-2018 [facility] (69718) Comment: Performed By: #### CBCDIF, E DCTNI, CMET, LIPASE #### Unless otherwise noted, all testing performed by [place] [address] CLIA: [id number] Radioactive Waste Disposal Dispatcher: Ismael vines M.D. Segmented Neut % 65.6 % Normal 03-15-2018 [facility] (81658) Comment: Result Comment: Smear review ed to verify automated differential> Performed By: #### CBCDIF, E DCTNI, CMET, LIPASE #### Unless otherwise noted, all testing performed by [place] [address] CLIA: [id number] Radioactive Waste Disposal Dispatcher: Ismael vines M.D. WBC #/vol (Bld) 5.8 3.4-10.6 K/mcL Normal 03-15-2018 [facility] (89557) Comment: Performed By: #### CBCDIF, E DCTNI, CMET, LIPASE #### Unless otherwise noted, all testing performed by [place] [address] CLIA: [id number] Radioactive Waste Disposal Dispatcher: Ismael vines M.D. us abdomen limited study on 2018-01-18 Invalid Interpretation Code ONBASE valproic acid on 02-01-18 Protein mass conc 72 50-100 mcg/mL Normal 01-02-2018 [facility] (19481) Comment: Result Comment: Result shoul d be correlated with last dose as reflected in the medical record. Performed By: #### [facility] #### Unless otherwise noted, all testing performed by [facility] [address] [facility] [place] [address] CLIA: [id number] Radioactive Waste Disposal Dispatcher: Ismael vines M.D. urinalysis, routine on 2018-01-02 Bilirubin,Urine Negative NEG;NEGATIVE Normal [facility]-02-2018 [facility] (18409) Comment: Performed By: #### UA #### Unless otherwise noted, all testing performed by [place] [address] CLIA: [id number] Radioactive Waste Disposal Dispatcher: Ismael vines M.D. Blood,Urine Negative NEG;NEGATIVE Normal 01-02-2018 [facility] (05920) Comment: Performed By: #### UA #### Unless otherwise noted, all testing performed by [place] [address] CLIA: [id number] Radioactive Waste Disposal Dispatcher: Ismael vines M.D. Character Nom (U) Clear Normal 01-02-2018 [facility] (15362) Comment: Performed By: #### UA #### Unless otherwise noted, all testing performed by [place] [address] CLIA: [id number] Radioactive Waste Disposal Dispatcher: Ismael vines M.D. Color Nom (U) Straw Normal 01-02-2018 [facility] (98626) Comment: Performed By: #### UA #### Unless otherwise noted, all testing performed by [facility] [address] [place] [address] CLIA: [id number] Radioactive Waste Disposal Dispatcher: Ismael vines M.D. Glucose Ql (U) Negative NEG;NEGATIVE Normal 01-02-2018 [facility] (92972) Comment: Performed By: #### UA #### Unless otherwise noted, all testing performed by [place] [address] CLIA: [id number] Radioactive Waste Disposal Dispatcher: Ismael vines M.D. Ketone,Urine Negative NEG;NEGATIVE Normal 01-02-2018 [facility] (77172) Comment: Performed By: #### UA #### Unless otherwise noted, all testing performed by [place] [address] CLIA: [id number] Radioactive Waste Disposal Dispatcher: Ismael vines M.D. Leuk.Esterase,Urine Negative Negative Normal 01-02-2018 [facility] (17837) Comment: Performed By: #### UA #### Unless otherwise noted, all testing performed by [place] [phone] CLIA: [id number] Radioactive Waste Disposal Dispatcher: Ismael vines M.D. Nitrite,Urine Negative NEG;NEGATIVE Normal 01-02-2018 [facility] (72303) Comment: Performed By: #### UA #### Unless otherwise noted, all testing performed by [place] [address] CLIA: [id number] Radioactive Waste Disposal Dispatcher: Ismael vines M.D. pH (U) 6.0 4.5-8.0 [pH] Normal 01-02-2018 [facility] (80555) Comment: Performed By: #### UA #### Unless otherwise noted, all testing [facility] [place] [address] CLIA: [id number] Radioactive Waste Disposal Dispatcher: Ismael vines M.D. Protein mass conc Negative NEG;NEGATIVE mg/dL Normal 8 [facility] (U) [facility] (60587) Comment: Performed By: #### UA #### Unless otherwise noted, all testing performed by [place] [phone] CLIA: [id number] Radioactive Waste Disposal Dispatcher: Ismael vines M.D. RBC LM.HPF #/area (Urine < 1 0-5 /[HPF] Normal 01-02 [facility] (82736) Comment: Performed By: #### UA #### Unless otherwise noted, all testing performed by [place] [phone] CLIA: [id number] Radioactive Waste Disposal Dispatcher: Ismael vines M.D. Specific [place],Urine 1.006 1.003-1.029 Normal 01-02 [facility] (81342) Comment: Performed By: #### UA #### Unless otherwise noted, all testing performed by [place] [address] CLIA: [id number] Radioactive Waste Disposal Dispatcher: Ismael vines M.D. Squamous Epithelial 1 0-40 /HPF Normal 01-02-2018 [facility] (98833) Comment: Performed By: #### UA #### Unless otherwise noted, all testing performed by [place] [address] CLIA: [id number] Radioactive Waste Disposal Dispatcher: Ismael vines M.D. Urobilinogen,Urine < 2.0 <2 Normal 01-02-2018 [facility] (70644) Comment: Performed By: #### UA #### Unless otherwise noted, all testing performed by [facility] l [address] [facility] [place] [address] CLIA: [id number] Radioactive Waste Disposal Dispatcher: Ismael vines M.D. WBC,Urine 1 0-5 /HPF Normal 01-02-2018 [facility] (94314) Comment: Performed By: #### UA #### Unless otherwise noted, all testing performed by [facility] [address] [facility] [place] [address] CLIA: [id number] Radioactive Waste Disposal Dispatcher: Ismael vines M.D. topiramate on 01-02 Topiramate 1.6 mcg/mL Normal 01-02-2018 [facility] (43433) Comment: Result Comment: -------REFERENCE VALUE Reference values depend on c linical use: Anticonvulsant: 5.0-20.0 mcg /mL Psychiatric: 2.0-8.0 mcg/mL ADDITIONA L INFORMATION This test was developed and its performance characteristics determined by [facility] in a manner consistent with CLIA requirements. This test has not been cleared or approved by the U.S. Food and Drug Admin istration. Test Performed by: [facility] [address] [place] [id number] Performed By: #### REGGIE SANTOS #### Unless otherwise noted, all testing performed by [facility] [address] [facility] [place] [address] CLIA: [id number] Radioactive Waste Disposal Dispatcher: Ismael vines M.D. levetiracetam on 02-01-18 Levetiracetam mass conc 45.1 12.0 - 46.0 mcg/mL Normal 12-16 [facility] (46588) Comment: Result Comment: -------ADDITIONAL INFORMATION This test was developed and its performance characteristics determined by [facility] in a manner consistent with CLIA requirements. This test has not been cleared or approved by the U.S. Food and Drug Admin istration. Test Performed by: [facility] [facility] [address] [place] [address] Performed By: #### REGGIE SANTOS #### Unless otherwise noted, all testing performed by [facility] l [address] [facility]. [place] [address] CLIA: [id number] Radioactive Waste Disposal Dispatcher: Ismael vines M.D. glucose, poc on 05-20-18 Glucose mass conc 103 70-105 mg/dL Normal 01-02-2018 [facility] ([id number]) Comment: Performed By: #### GLUX #### Unless otherwise noted, all testing performed by [facility] l [address] [facility] [address] [facility]. [place] [address] CLIA: [id number] Radioactive Waste Disposal Dispatcher: Ismael vines M.D. chest (one view only) on 2018-01-02 CHEST (ONE VIEW Final Report Normal [facility] ONLY) Accession No: [id number] Performed: Jan 02 2018 1:47P [facility] Examination: CHEST (ONE VIEW ONLY) ([id number]) TECHNIQUE single view of the chest AP [...] #/vol (Bld) 0.0 0-0.2 K/mcL Normal 01-03-20 [facility] (14422) Comment: Performed By: #### CBCDIF ## ## Unless otherwise noted, all testing performed by [place] [address] CLIA: [id number] Radioactive Waste Disposal Dispatcher: Ismael vines M.D. Basophils/100 WBC (Bld) 0.4 % Normal 2017 [facility] (70804) Comment: Performed By: #### CBCDIF ## ## Unless otherwise noted, all testing performed by [place] [address] CLIA: [id number] Radioactive Waste Disposal Dispatcher: Imsael vines M.D. Eosinophils #/vol (Bld) 0.1 0-0.5 K/mcL Normal 2017 [facility] (28360) Comment: Performed By: #### CBCDIF ## ## Unless otherwise noted, all testing performed by [place] [address] CLIA: [id number] Radioactive Waste Disposal Dispatcher: Ismael vines M.D. Eosinophils/100 WBC (Bld) 1.6 % Normal 12-16 [facility] (40023) Comment: Performed By: #### CBCDIF ## ## Unless otherwise noted, all testing performed by [facility] l [address] [place] [address] CLIA: [id number] Radioactive Waste Disposal Dispatcher: Ismael vines M.D. Erythrocyte distribution 13.6 10.0-14.4 % Normal 01-02 [facility] and [facility] (RBC) [facility] (17588) Comment: Performed By: #### CBCDIF ## ## Unless otherwise noted, all testing performed by [facility] l [address] [place] [address] CLIA: [id number] Radioactive Waste Disposal Dispatcher: Ismael vines M.D. Hematocrit Volume 41.9 34.4-44.8 % Normal 01-02-2018 [facility] (09466) Comment: Performed By: #### CBCDIF ## ## Unless otherwise noted, all testing performed by [facility] l [address] [place] [address] CLIA: [id number] Radioactive Waste Disposal Dispatcher: Ismael vines M.D. Hemoglobin mass conc 14.0 11.6-15.4 g/dL Normal 8 [facility] ([facility]) [facility] (26874) Comment: Performed By: #### CBCDIF ## ## Unless otherwise noted, all testing performed by [facility] l [address] [place] [address] CLIA: [id number] Radioactive Waste Disposal Dispatcher: Ismael vines M.D. Lymphocytes #/vol ([facility]) 2.1 1.0-3.7 K/mcL Normal 2017 [facility] (02336) Comment: Performed By: #### CBCDIF ## ## Unless otherwise noted, all testing performed by [facility] l [address] [place] [address] CLIA: [id number] Radioactive Waste Disposal Dispatcher: Ismael vines M.D. Lymphocytes/100 WBC (Bld) 29.9 % Normal 12-16 [facility] (22088) Comment: Performed By: #### CBCDIF ## ## Unless otherwise noted, all testing performed by [facility] [address] [place] [address] CLIA: [id number] Radioactive Waste Disposal Dispatcher: Ismael vines M.D. MCH Entitic mass (RBC) 29.7 27.9-33.9 pg Normal [address] [place] [address] ([address]98) Comment: Performed By: #### CBCDIF ## ## Unless otherwise noted, all testing performed by [place] [address] CLIA: [id number] Radioactive Waste Disposal Dispatcher: Ismael vines M.D. MCHC mass conc (RBC) 33.4 33.1-35.1 g/dL Normal 8 [facility] (93256) Comment: Performed By: #### CBCDIF ## ## Unless otherwise noted, all testing performed by [place] [address] CLIA: [id number] Radioactive Waste Disposal Dispatcher: Ismael vines M.D. MCV Entitic volume 89.0 82.6-98.9 FL Normal 01-02-2018 [facility] and (RBC) [facility] (57751) Comment: Performed By: #### CBCDIF ## ## Unless otherwise noted, all testing performed by [facility] [address] [place] [address] CLIA: [id number] Radioactive Waste Disposal Dispatcher: Ismael vines M.D. Monocytes #/vol (Bld) 0.7 0.1-0.6 K/mcL High 01-03-20 18 [facility] (51317) Comment: Performed By: #### CBCDIF ## ## Unless otherwise noted, all testing performed by [facility] l [address] [facility] [address] [facility]. [place] [address] CLIA: [id number] Radioactive Waste Disposal Dispatcher: Ismael vines M.D. Monocytes/100 WBC (Bld) 9.7 % Normal 2017 [facility] (91735) Comment: Performed By: #### CBCDIF ## ## Unless otherwise noted, all testing performed by [facility] l [address] [place] [address] CLIA: [id number] Radioactive Waste Disposal Dispatcher: Ismael vines M.D. Neutrophils #/vol (Bld) 4.1 1.2-6.9 K/mcL Normal 2017 [facility] (61688) Comment: Performed By: #### CBCDIF ## ## Unless otherwise noted, all testing performed by [facility] l [address] [place] [address] CLIA: [id number] Radioactive Waste Disposal Dispatcher: Ismael vines M.D. Platelet mean volume 8.6 7.0-10.6 FL Normal 8 [facility] and Entitic volume (Bld) [facility] (16859) Comment: Performed By: #### CBCDIF ## ## Unless otherwise noted, all testing performed by [facility] l [address] [facility] [place] [address] CLIA: [id number] Radioactive Waste Disposal Dispatcher: Ismael vines M.D. Platelets #/vol (Bld) 100 162-402 K/mcL Low 01-03-20 18 [facility] (42400) Comment: Performed By: #### CBCDIF ## ## Unless otherwise noted, all testing performed by [facility] l [address] [place] [address] CLIA: [id number] Radioactive Waste Disposal Dispatcher: Ismael vines M.D. RBC #/vol (Bld) 4.71 3.7-5.0 M/mcL Normal 01-02-2018 [facility] (42254) Comment: Performed By: #### CBCDIF ## ## Unless otherwise noted, all testing performed by [place] [address] CLIA: [id number] Radioactive Waste Disposal Dispatcher: Ismael vines M.D. Segmented Neut % 58.4 % Normal 01-02-2018 [facility] (84366) Comment: Performed By: #### CBCDIF ## ## Unless otherwise noted, all testing performed by [place] [address] CLIA: [id number] Radioactive Waste Disposal Dispatcher: Ismael vines M.D. WBC #/vol (Bld) 7.0 3.4-10.6 K/mcL Normal 01-02-2018 [facility] (39502) Comment: Performed By: #### CBCDIF ## ## Unless otherwise noted, all testing performed by [place] [address] CLIA: [id number] Radioactive Waste Disposal Dispatcher: Ismael vines M.D. basic metabolic panel on 2018-01-02 Calcium mass conc 8.9 8.4-10.2 mg/dL Normal 01-02-2018 [facility] (81529) Comment: Performed By: #### CHEM8, [place] [facility] #### Unless otherwise noted, all testing performed by [facility] l [address] [facility]. [place] [address] CLIA: [id number] Radioactive Waste Disposal Dispatcher: Ismael vines M.D. Chloride molar conc 105 98-108 mmol/L Normal 01-02-2018 [facility] (91085) Comment: Performed By: #### CHEM8, [place] LP #### Unless otherwise noted, all testing performed by [facility] l [address] [facility]. [place] [address] CLIA: [id number] Radioactive Waste Disposal Dispatcher: Ismael vines M.D. CO2 molar conc 22 21-32 mmol/L Normal 01-02-2018 [facility] (07872) Comment: Performed By: #### CHEM8, [place] LP #### Unless otherwise noted, all testing performed by [facility] l [address] [facility]. [place] [address] CLIA: [id number] Radioactive Waste Disposal Dispatcher: Ismael vines M.D. Creatinine mass conc 1.42 0.40-1.10 mg/dL High 8 [facility] (55613) Comment: Performed By: #### CHEM8, [place] LP #### Unless otherwise noted, all testing performed by [facility] l [address] [facility]. [place] [address] CLIA: [id number] Radioactive Waste Disposal Dispatcher: Ismael vines M.D. GFR/1.73 sq M predicted 49 >60 ml/min/1.73sq.m Low 01-02-2018 [facility] and among blacks [facility] (32678) rate/area (S/P/Bld) Comment: Result Comment: Amer ican GFR Calc Performed By: #### CHEM8, [place] LP #### Unless otherwise noted, all testing performed by [facility] l [address] [facility]. [place] [address] CLIA: [id number] Radioactive Waste Disposal Dispatcher: Ismael vines M.D. GFR/1.73 sq M predicted 40 >60 ml/min/1.73sq.m Low 01-02-2018 [facility] among non-blacks [facility] vol rate/area (S/P/Bld) (94590) Comment: Result Comment: Non- GFR Calc eGFR [...] otherwise noted, all testing performed by [facility] l [address] [facility]. [place] [address] CLIA: [id number] Radioactive Waste Disposal Dispatcher: Ismael vines M.D. Glucose mass conc 86 70-99 mg/dL Normal 01-02-2018 [facility] (58331) Comment: Result Comment: This test re sult might be falsely depressed or falsely elevated on samples drawn from patients taking Sulfasalazine and Sulfapyridine. Venipuncture should occur pr ior to taking either of these drugs. Performed By: #### CHEM8, PARESH GOLDEN #### Unless otherwise noted, all testing performed by [facility] l [address] [facility]. [place] [address] CLIA: [id number] Radioactive Waste Disposal Dispatcher: Ismael vines M.D. Potassium molar conc 4.2 3.5-5.1 mmol/L Normal 8 [facility] (98878) Comment: Performed By: #### CHEM8, VA LP #### Unless otherwise noted, all testing performed by [facility] l [address] [place] [address] CLIA: [id number] Radioactive Waste Disposal Dispatcher: Ismael vines M.D. Sodium molar conc 137 135-145 mmol/L Normal 01-02-2018 [facility] (94703) Comment: Performed By: #### CHEM8, VA LP #### Unless otherwise noted, all testing performed by [facility] l [address] [place] [address] CLIA: [id number] Radioactive Waste Disposal Dispatcher: Ismael vines M.D. Urea nitrogen mass conc 28 8-25 mg/dL High 2017 [facility] (63446) Comment: Performed By: #### CHEM8, [place] LP #### Unless otherwise noted, all testing performed by [facility] l [address] [facility]. [place] [address] CLIA: [id number] Radioactive Waste Disposal Dispatcher: Ismael vines M.D. brain with spect on 2017-09-15 BRAIN WITH SPECT Performed at [facility] 09-15-2017 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 [...] BMI (Body Mass Index) 39.01 kg/m2 09-25-2019 [facility] [address] [place] ([address]228) BMI (Body Mass Index) 40.11 kg/m2 08-07-2019 [facility] [address] (39746) BMI (Body Mass Index) 33.85 kg/m2 03-16-2019 [facility] (08000) BMI (Body Mass Index) 35.1 kg/m2 03-08-2019 [facility] (69882) BMI (Body Mass Index) 33.96 kg/m2 03-01-2019 [facility] (28045) Body Temperature 98 [degF] 06-18-2020 ME-Kzrfomqje-Pw burban 204 [facility] (39147 ) Body Temperature 98.6 [degF] 03-16-2019 [facility] (432 15) Body Temperature 98.1 [degF] 03-08-2019 [facility] (432 15) Body Temperature 98.01 [degF] 03-01-2019 [facility] (432 15) Body Temperature 98.1 [degF] 11-22-2018 [facility] (432 15) Body weight 78.93 kg 09-25-2019 [facility] [address] ([address]) Body weight 78.61 kg 08-07-2019 [facility] [address] ([address]486) BP Diastolic 88 mm[Hg] 06-18-2020 HP-Iomqqjgcu-Iof urban 204 [facility] (11424 ) BP Diastolic 92 mm[Hg] 06-18-2020 MB-Phqucibqo-Qpe urban 204 [facility] (77090 ) BP Diastolic 72 mm[Hg] 09-25-2019 [facility]Ann[facility] d [address] ([address]38) BP Diastolic 70 mm[Hg] 08-07-2019 [facility] [address] (60431) BP Diastolic 79 mm[Hg] 03-16-2019 [facility] (4321 5) BP Systolic 117 mm[Hg] 06-18-2020 [place]-Ozmywgcxy-Fns urban 204 [facility] (17424 ) BP Systolic 125 mm[Hg] 06-18-2020 MX-Mtqictedq-Ous urban 204 [facility] (93137 ) BP Systolic 110 mm[Hg] 09-25-2019 [facility] [facility] [address] (60879) BP Systolic 106 mm[Hg] 08-07-2019 [facility] [address] (58860) BP Systolic 138 mm[Hg] 03-16-2019 [facility] (4321 5) BSA (Body Surface Area) 1.67 m2 09-25-2019 [facility] [address] [place] (65196) BSA (Body Surface Area) 1.65 m2 08-07-2019 [facility] [address] [place] (93749) Height 142.24 cm 06-18-2020 MC-Miaboixmw-Izn urban 204 [facility] (50418 ) Height 142.24 cm 09-25-2019 [facility] [address] (73371) Height 140 cm 08-07-2019 [facility] [address] (35454) Height 142.2 cm 03-16-2019 [facility] (4321 5) Height 139.7 cm 03-08-2019 [facility] (4321 5) Pulse (Heart Rate) 109 /min [facility]-18-[facility] (07582 ) Pulse (Heart Rate) 103 /min 06-18-2020 [facility] 204 Movement [facility] (55934 ) Pulse (Heart Rate) 73 /min 03-16-2019 [facility] (4 3215) Pulse (Heart Rate) 93 /min 03-08-2019 [facility] (4 3215) Pulse (Heart Rate) 93 /min 03-01-2019 [facility] (4 3215) Pulse Oximetry 97 % 03-16-2019 [facility] (4321 5) Pulse Oximetry 98 % 03-08-2019 [facility] (4321 5) Pulse Oximetry 98 % 03-01-2019 [facility] (4321 5) Pulse Oximetry 98 % 11-22-2018 [facility] (4321 5) Pulse Oximetry 96 % 11-22-2018 [facility] (4321 5) Respiratory Rate 18 /min 06-18-2020 XN-Tfjglkrcc-Et burban 204 [facility] (38557 ) Respiratory Rate 14 /min 03-16-2019 [facility] (432 15) Respiratory Rate 18 /min 03-08-2019 [facility] (432 15) Respiratory Rate 18 /min 03-01-2019 [facility] (432 15) Respiratory Rate 16 /min 11-22-2018 [facility] (432 15) Weight 68.49 kg 03-16-2019 [facility] (4321 5) Weight 68.49 kg 03-08-2019 [facility] (4321 5) Weight 68.49 kg 03-01-2019 [facility] (4321 5) Encounters Date Type Reason Provider Location 09-15-2017 - Ambulatory VALENTINA MONTGOMERY Facility :[place] 09-16-2017 [facility] 08-12-2017 Ambulatory VALENTINA CHOPRA Facility[facility] 01-05-2017 Ambulatory Rishabh Rodriguez [facility] Prim x[facility] 03-16-2019 - Emergency department [facility] 03-16-2019 patient visit Physicians Luis Medical O bservation Gabriellacorky Generic [facility] Physicians Luis Moody 05-13-2018 - Emergency department SUMMER Roa Facility: 05-14-2018 patient visit MENDY 04-22-2018 Emergency department Facilit y:Confucianist patient visit [facility] 03-15-2018 - Emergency department Bobby Zavala Bobby Facility:[place] 03-15-2018 patient visit Selvin Zavala 01-02-2018 - Emergency department Leigh Ann Ayala F acility:[place] 01-02-2018 patient visit Leigh Ann Ayala 08-06-2017 ERRONEOUS Mansoor Wheeler [facility] Primary ENCOUNTER-DISREGARD Care Vanessa sicsummer 03-16-2019 - Evaluation and Karin Richards [facility] 03-16-2019 management of Luis Moody EEG inpatient Comment: Arrived 11-22-2018 - Office consultation Chest pain at [facility] 11-22-2018 new/estab patient 60 rest [place] [facility]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 10/14/2018 [facility]/Jono ALEXIS, Moi ? Lung nodule 12/15/2017 0.5 cm pleural based nodule in right middle lobe. Mild linear atelectasis ? Mitral valve prolapse [facility]/Darren Shaikh ? Rectus diastasis [facility]/Heidy Jara MD Present with small wide necked perumbical ventral containing fat. ? Second degree burn of foot 04/23/2018 Right Foot - [facility] ? Seizure (HCC) [facility]/Jono ALEXIS, Moi ? Sleep apnea ? Stroke (HCC) 2000 mild ? Tremor Past Surgical History: Procedure Laterality Date ? Conner pH capsule placement 02/01/2017 Dr. Lobo ? BREAST REDUCTION 2000 bilateral ? [facility]-nonperforating gastritis ? ESOPHAGEAL MANOMETRY [...] Apparently today when she was in the ent physician's office she was told her blood pressure was high she had not taking her medication this morning. Prior to going into see the ent physician and she is not sure if she took it last night. She did take her blood pressure medication after she got home. Chronic kidney disease: She has a history of chronic kidney disease. She was first diagnosed in 2000. Last lab was 11/17/2018 Metabolic panel: Sodium 136. Potassium 3.7. Chloride 108. Bicarb 21. Aounrxf895. BUN 15. Creatinine 1.0. Estimated GFR 46. [...] any true fever or chills. Taking some dcxx-onn-siortgv cough and cold medication. She is gargling [...] your blood pressure was elevated at the ent physician's office today because you had not taking your Cardura as the ent physician thought. Your blood pressure has decreased since [...] include nonsteroidals. The nonsteroidal class includes the zems-rqg-ofqssex medications of Motrin, Advil, Aleve, ibuprofen, Naprosyn as well as all the prescription nonsteroidals. Typically we follow individuals with chronic kidney disease a minimum of 2-3 times a year. As the kidney disease progresses we monitor closer. Typically start with a minimum of twice a year lab work and increase to every 3 months if indicated. Referral to a kidney specialist or information strategist is obtained with sudden declining kidney function, [...] understand their medications Are you taking any qono-has-luabwqu medications or supplements? Patient Response: None Since [...] understand their medications Are you taking any pyek-vzd-xatjqly medications or supplements? Patient Response: None Since last being seen in this office, have you seen another healthcare provider? Patient Response: Yes. If yes, where did you see this provider? keysha Nedra Cervantes CNP - 03/01/2019 8:30 AM EDT Subjective Patient ID: Reema Motta is a 43 y.o. female. Patient is here today for transitional care visit. She was admitted to [facility] 02/21/19 anddischarged 02/24/19. She was discharged with dx: CKD, hyperammonemia, polydipsia, resting tremors, and valproic acid toxicity. At this time I do not have any records from [facility]. Patient has continued to have issues [...] until she follows up with neurology in [facility], Dr. Chopra, her apt is 03/16/2019. At this time the only seizure medication she is on is the Keppra. She is also on Lorazepam 1 mg 4x a day to help with tremors and the seizures. Patient is here with her rn care manager and she states they have an assessment on Wednesday to talk aboutAssisted living. At this time she lives with her cousin and is home alone a lot. It is also causing more stress because of declining relationship with her cousin, they are arguing a lot. rn care manager is also concerned with patient's medication [...] Diagnosis Date ? Acquired thrombocytopenia ([facility]) [facility]/Darren Shaikh ? Acute abdominal pain 11/17/2018 [facility] Stacy ALEXIS,Ac Escobar ? Acute bronchitis 12/21/2018 Info Gained From: [facility] ED report --- Bob Nye MD ? Acute kidney injury (HCC) 05/22/2018 [facility]/Jonatan Chiu DO ? Acute UTI 10/14/2018 [facility]/Moi De La Cruz MD ? Anxiety ? Bronchospasm 12/21/2018 Info Gained From: [facility] ED report --- Bbo Nye MD ? Calcaneal spur of right foot 2017 Documented on x-ray ? Chronic kidney disease, stage III (moderate) ([facility]) 2000 ? Congestive heart failure (CHF) ([facility]) [facility]/Darren Shaikh ? Dehydration 12/12/2018 Info Gained From: [facility] ED --- Shilpa Jensen ? Depression ? Epilepsy ([facility]) 08/06/2011 [facility]- Dr. Chopra ? Epilepsy ([facility]) 1993 ? Facet degeneration of lumbar region 10/14/2018 [facility]/Moi De La Cruz MD Mild facet degenerative changes seen in the lower lumbar spine ? Fatty liver [facility]/Joe Mendieta MD Mild fibrofatty changes of the liver ? Fluid collection (edema) in the arms, legs, hands and feet 03/09/2018 Dr valentina Chopra ? Gastritis determined by endoscopy 12/29/2016 Dr. GonzalezKuwmgg-Hamszyswr-apqqfvcwhbxmc nonbleeding with biopsy ? Hepatic steatosis [facility]/Heidy Jara MD Mild ? Hiatal hernia 12/29/[address] Lobo grade 4 ? Hypercholesterolemia [facility]/Jonatan Chiu DO ? Hypertension 2000 2000-present ? Insomnia [facility]/Darren Shaikh ? Kidney stone [facility]/Darren Shaikh ? Low back pain 10/14/2018 [facility]/Mio De La Cruz MD ? Lung nodule 12/15/2017 0.5 cm pleural based nodule in right middle lobe. Mild linear atelectasis ? Mitral valve prolapse [facility]/Darren Shaikh ? Rectus diastasis [facility]/Heidy Jara MD Present with small wide necked perumbical ventral containing fat. ? Second degree burn of foot 04/23/2018 Right Foot - [facility] ? Seizure (HCC) [facility]/Jono ALEXIS, Saulius ? Sleep apnea ? Stroke (HCC) 2001 mild ? Tremor ? Upper abdominal pain 12/03/2018 Info Gained From: /[facility]/R Report --- Murray ALEXIS,Ac Escobar Past Surgical History: Procedure Laterality Date ? Conner pH capsule placement 02/01/2017 Dr. Lobo ? BREAST REDUCTION 2000 bilateral ? [facility]-nonperforating gastritis ? ESOPHAGEAL MANOMETRY [...] She had a meeting on Wednesday with [facility] [facility] and assisted living and they are waiting to hear back to see if she qualifies to live in the [facility]. Tremors: Patient continues to be off of the Valproic acid until she is seen by Neurology in [facility],Dr. Chopra, her apt is 03/16/2019. She has [...] has been having an increase in headaches. [facility] [employer] is making notes of all of these symptoms so she can let the neurologist know at her apt. The following portions of the patient's history were reviewed and updated as appropriate: allergies,current medications, past family history, past medical history, past social history, past surgical history and problem list. Past Medical History: Diagnosis Date ? Acquired thrombocytopenia ([facility]) [facility]/Darren Shaikh ? Acute kidney injury (HCC) 05/22/2018 [facility]/Jonatan Chiu DO ? Anxiety ? Calcaneal spur of right foot 2017 Documented on x-ray ? Chronic kidney disease, stage III (moderate) ([facility]) 2000 ? Congestive heart failure (CHF) ([facility]) [facility]/Darren Shaikh ? Depression ? Epilepsy ([facility]) 08/06/2011 [facility]- Dr. Chopra ? Epilepsy ([facility]) 1993 ? Facet degeneration of lumbar region 10/14/2018 [facility]/Jono ALEXIS, Moi Mild facet degenerative changes seen in the lower lumbar spine ? Fatty liver [facility]/Joe Mendieta MD Mild fibrofatty changes of the liver ? Fluid collection (edema) in the arms, legs, hands and feet 03/09/2018 Dr valentina Chopra ? Gastritis determined by endoscopy 12/29/2016 Dr. LeePfjyws-Cygridbuj-toczlsckzqrcl nonbleeding with biopsy ? Hepatic steatosis [facility]/Heidy Jara MD Mild ? Hiatal hernia 12/29/[address] Lobo grade 4 ? Hypercholesterolemia [facility]/Jonatan Chiu DO ? Hypertension 2001 2001-present ? Insomnia [facility]/Darren Shaikh ? Kidney stone [facility]/Darren Shaikh ? Lung nodule 12/15/2017 0.5 cm pleural based nodule in right middle lobe. Mild linear atelectasis ? Mitral valve prolapse [facility]/Darren Shaikh ? Rectus diastasis [facility]/Heidy Jara MD Present with small wide necked perumbical ventral containing fat. ? Second degree burn of foot 04/23/2018 Right Foot - [facility] ? Sleep apnea ? Stroke (HCC) 2001 mild ? Tremor Past Surgical History: Procedure Laterality Date ? Conner pH capsule placement 02/01/2017 Dr. Lobo ? BREAST REDUCTION 2000 bilateral ? [facility]-nonperforating gastritis ? ESOPHAGEAL MANOMETRY [...] ED/admit notes faxed To Neuro at # [phone] Pre-auth Amandeep Aldrich prior auth. received until [...] Via: Telephone ? Patient was Discharged From [facility] ? Discharge Diagnosis: HTN, anxiety, seizures ? [...] 03/15/19 to ED stating seizures. Transferred to [place] observation. Describes turned to change her clothes [...] Seek Emergent Care with EMS/911/ED, When to [facility] and As Directed by CERTIFIED DENTAL ASSISTANT/Surgeon/Specialist Additional Information Discussed: Yes Providers/Clinics: Home Health Care Arrangements Initiated: No Follow up with Valentina Chopra MD Specialty: Neurology [address] [place] [address] Future Appointments Date Time Provider Department Center 03/23/2019 1:30 PM Nedra Brewer CNP [facility] PCP [facility] 06/08/2019 2:00 PM CHAYA Oquendo PCP [...] - 03/31/2019 2:44 PM EDT SS from [facility] phoned, beginning evaluation for assisted living. [...] Chest pain at rest Nedra Brewer Pattie [facility] RamiroJaninaCHAYA [address] [place], [place] [address] [place], [place] Phone: [phone] Phone: Fax: Status Reason Specialty Diagnoses / Referred By Referred To Procedures Contact Contact Pending Review Cardiology Diagnoses Chest pain at rest Mattie Hayden Procedures Echocardiogram complete MD [address] [place] [address] Status Reason Specialty Diagnoses / Referred By Referred To Procedures Contact Contact Pending Review Radiology Diagnoses Chest pain at rest Mattie Hayden Procedures NM Myocardial Perfusion Multiple SPECT MD [address] [place] [address] Status Reason Specialty Diagnoses / Referred By Contact Refe rred To Contact Procedures Closed Cardiology Diagnoses Essential hypertension Chronic kidney disease, stage III (moderate) (HCC) Chest pain at rest Nedra SanchesnMattieJanina, CHAYA Krishnan MD [address] [place] [id number] [place] [address] Phone: Fax: Discharge Instructions Meena Alicea RN [...] Log into your personal health record on [email or web address] and enter M749 in the Education box to learn more about Seizure: Care Instructions. Current as of: March 20, 2018 Content Version: 12.0 ? [id number] [id number], [employer]. Care instructions adapted under license by your healthcare professional. If you have questions about a medical condition or this instruction, always ask your healthcare professional. [id number], [employer] disclaims any warranty or liability for your [...] BE BASED ON THE PRIMARY CLINICAL RECORDS. [employer] provides no warranty or guarantee of the accuracy or completeness of information in this document. UNRECOGNIZED CONTENT PROVIDED BELOW FOR UNRECOGNIZED SECTION INFORMATION SOURCE DATE CREATED AUTHOR AUTHOR'S ORGANIZATIO N 12/06/2018 [facility] DATE CREATED AUTHOR AUTHOR'S ORGANIZATIO N 04/12/2018 [facility] DATE CREATED AUTHOR AUTHOR'S ORGANIZATIO N 04/12/2018 [facility] DATE CREATED AUTHOR AUTHOR'S ORGANIZATIO N 04/22/2018 [facility] DATE CREATED AUTHOR AUTHOR'S ORGANIZATIO N 05/15/2018 [facility] DATE CREATED AUTHOR AUTHOR'S ORGANIZATIO N 12/25/2018 [facility] DATE CREATED AUTHOR AUTHOR'S ORGANIZATIO N 05/27/2019 [facility] DATE CREATED AUTHOR AUTHOR'S ORGANIZATIO N 07/20/2019 [facility] DATE CREATED AUTHOR AUTHOR'S ORGANIZATIO N 12/02/2019 [facility] DATE CREATED AUTHOR AUTHOR'S ORGANIZATIO N 12/07/2019 [facility] DATE CREATED AUTHOR AUTHOR'S ORGANIZATIO N 08/02/2020 [facility] UNRECOGNIZED CONTENT PROVIDED BELOW FOR UNRECOGNIZED SECTION [...] and allow cool down until at least shelter back to the pre exercise hear rate. [...] and allow cool down until at least shelter back to the pre exercise hear rate. [...] to consider following up with the general claim processing specialist.in this encounterAssessment & Plan Note - [...] your blood pressure was elevated at the ent physician's office today because you had not taking your Cardura as the ent physician thought. Your blood pressure has decreased since [...] include nonsteroidals. The nonsteroidal class includes the ougy-ojr-wgibnsg medications of Motrin, Advil, Aleve, ibuprofen, Naprosyn as well as all the prescription nonsteroidals. Typically we follow individuals with chronic kidney disease a minimum of 2-3 times a year. As the kidney disease progresses we monitor closer. Typically start with a minimum of twice a year lab work and increase to every 3 months if indicated. Referral to a kidney specialist or information strategist is obtained with sudden declining kidney function, [...] been out of bed since arriving at [facility]. She lives with her cousin. She [...] toxicity. She follows with Dr. Gillette from [place]. She was also using Keppra 750 mg [...] to 1000 mg twice a day. 3. [place] seizure precautions. 4. Monitor frequency alcohol seizures. [...] Portions of this chart was created using [employer] voice recognition software. Occasional wrong-word or sound-like [...] Meena Way RN - 03/16/2019 7:58 AM [facility] sent CD from [place] with X-Ray information with Mattie from [place] per instructions from [facility] to be scanned into patient's record. Meena Way RN - 03/16/2019 7:41 AM EDTPatikelechi's medications prior to admission are present in the med room in a cooler and need to be reviewed with this nurse and patient. There are reportedly (per patient) medications therein that she is allergic to. Per rn night, admission is not complete Meena Way RN - 03/16/2019 7:39 AM EDTPatikelechi is awake and alert, sitting in bed and able to express her needs. She reports that the tremors she is having at bedside report time are her baseline. No seizure activity reported. She also reports that she will be going to [facility]isted [facility] in [place] soon. documented in this encounter UNRECOGNIZED CONTENT [...] kidney disease, stage III (moderate) ([facility]) Chest pain at rest [place], Mattie Chen, CERTIFIED DENTAL ASSISTANT MD [address]ella [address] [place], [place] [address] [place] [address] Phone: Fax: Reason Comments Hypertension Sore Throat X 3 days Status Reason Specialty Diagnoses / Referred By Referred To Procedures Contact Contact Pending Review Radiology Diagnoses Chest pain at rest Mattie Hayden Procedures NM Myocardial Perfusion Study Single - Stress Only NM Myocardial Perfusion Multiple SPECT MD [address] [place] [address] Reason Comments Transition Of Care Pt reports [...] 03/16/2019 4:18 PM EDTAssociated Order(s): EEG (STANDARD) [facility] EEG Report Reason for EEG: Seizures. Summary: [...] IP CONSULT TO NEUROLOGY Neurology Inpatient Consult [facility] 03/16/2019 Patient: Reema Motta Date of : 1975 (43 y.o.) Referring Provider: Refer to consult order in electronic medical record PCP: Nedra Brewer CNP ASSESSMENT: 43 y.o. female presented to [facility] on 03/16/2019 with seizures. PLAN: Seizure (HCC) [...] toxicity. She follows with Dr. Gillette from [place]. She was also using Keppra 750 mg [...] to 1000 mg twice a day. 3. [place] seizure precautions. 4. Monitor frequency alcohol seizures. [...] Portions of this chart was created using [employer] voice recognition software. Occasional wrong-word or sound-like [...] This occurred after she was discharged from [facility] where her Depakote was discontinued because [...] Diagnosis Date ? Acquired thrombocytopenia ([facility]) [facility]/Darren Shaikh ? Acute kidney injury ([facility]) 05/22/2018 [facility]/Jonatan Chiu DO ? Anxiety ? Calcaneal spur of right foot 2017 Documented on x-ray ? Chronic kidney disease, stage III (moderate) ([facility]) 2000 ? Congestive heart failure (CHF) ([facility]) [facility]/Darren Shaikh ? Depression ? Epilepsy ([facility]) 08/06/2011 [facility]- Dr. Chopra ? Epilepsy ([facility]) 1993 ? Facet degeneration of lumbar region 10/14/2018 [facility]/Jono ALEXIS, Saulius Mild facet degenerative changes seen in the lower lumbar spine ? Fatty liver [facility]/Joe Mendieta MD Mild fibrofatty changes of the liver ? Fluid collection (edema) in the arms, legs, hands and feet 03/09/2018 Dr valentian Chopra ? Gastritis determined by endoscopy 12/29/2016 Dr. GonzalezDesnug-Yhpbromzz-wkwuihjchlruj nonbleeding with biopsy ? Hepatic steatosis [facility]/Heidy Jara MD Mild ? Hiatal hernia 12/29/[address] Lobo grade 4 ? Hypercholesterolemia [facility]/Jonatan Chiu DO ? Hypertension 2000 2000-present ? Insomnia [facility]/Darren Shaikh ? Kidney stone [facility]/Darren Shaikh ? Lung nodule 12/15/2017 0.5 cm pleural based nodule in right middle lobe. Mild linear atelectasis ? Mitral valve prolapse [facility]/Darren Shaikh ? Motor seizure ([facility]) 03/16/2019 INFO GAINED FROM: /[facility] ED VISIT --- LOZANO DO,CAREN ? Rectus diastasis [facility]/Heidy Jara MD Present with small wide necked perumbical ventral containing fat. ? Second degree burn of foot 04/23/2018 Right Foot - [facility] ? Sleep apnea ? Stroke (HCC) 2001 mild ? Tremor Past Surgical History: Procedure Laterality Date ? Conner pH capsule placement 02/01/2017 Dr. Lobo ? BREAST REDUCTION 2000 bilateral ? EGD 12/29/2016 Dr. Lobo-[facility]-grade 4 hiatal hernia-nonperforating gastritis ? ESOPHAGEAL MANOMETRY [...] file Gets together: Not on file Attends mormonism service: Not on file Active member of [...] Oral Daily ? venlafaxine 37.5 mg Oral [facility] PRN Medications: senna OBJECTIVE: Physical Examination: BP 138/79 Pulse 73 Temp 98.6 ?F (37 ?C) (Oral) Resp 14 Ht 4' 8 Wt 68.5 kg (151 lb) [id number]% BMI 33.85 kg/m? Patient is awake and [...]
== END 2020-03-29 14:38 | disposition home or self-care (01) ==
PROVIDERS: Emergency Provider Emergency Medicine
DX: R07.2 Precordial pain (principal); I10 Essential (primary) hypertension; D69.6 Thrombocytopenia, unspecified; N28.9 Disorder of kidney and ureter, unspecified; K21.9 Gastro-esophageal reflux disease without esophagitis; Z86.73 Personal history of transient ischemic attack (TIA), and cerebral infarction without residual deficits; Z79.899 Other long term (current) drug therapy
CPT/HCPCS: 36415; 71045; 80048; 84484; 85025; 93005; 99285; A4216

== ENCOUNTER 2020-03-30 10:39 | Emergency (ER) | payer MEDICAID, SELFPAY ==
[2020-03-29 13:02] VITALS: BMI 39.2
[2020-03-30 10:40] VITALS: BP 157/131; PULSE 87; RESP 16; TEMP 37.6; O2SAT 96; BMI 35.4
[2020-03-30 10:46] VITALS: BP 157/131; PULSE 92; RESP 16; O2SAT 98
--- NOTE | 2020-03-30 11:09 | ED.VIS.GEN ---
History of Present Illness <Tim Newby - Last Filed: 03/30/20 12:07> Informant: Patient Onset: Yesterday Context: Gradual Onset Timing: Continuous Quality: shaking Location: entire body Current Severity: Severe Maximum Severity: Severe Worsened by: nothing Relieved by: nothing Associated Symptoms: denies Narrative: 44-year-old female history of seizure disorder presents because she states she has been having seizures this morning. She is having myoclonic jerks of both her arms and legs. She states that this is consistent with her previous seizures. She states she did not take any of her seizure medicines yesterday or today. She was actually seen here yesterday for chest pain and discharged home. She denies headache chest pain at this time abdominal pain blurry vision double vision or loss of vision numbness or tingling weakness fevers cough or upper respiratory symptoms Prior similar symptoms: Yes Recent Illness/Hospitalization: No <Alejandro Higgins - Last Filed: 03/30/20 12:11> Chief Complaint: Seizure Past Medical History <Tim Newby - Last Filed: 03/30/20 12:07> Prior records reviewed: Yes Past Medical History: - - HTN, HPL, Seizure disorder Surgical History: no surgical history Lives: Roommate Smoking Status: Never smoker Alcohol: None Drugs: None <Alejandro Higgins - Last Filed: 03/30/20 12:11> - Allergies and Home Meds Allergies/Adverse Reactions: Allergies acetaminophen [From Vicodin] Allergy (Verified 03/30/20 10:49) Rash erythromycin base [Erythromycin Base] Allergy (Verified 03/30/20 10:49) Rash hydrocodone bitartrate [From Vicodin] Allergy (Verified 03/30/20 10:49) Rash hydromorphone [From Dilaudid] Allergy (Verified 03/30/20 10:49) Rash Penicillins Allergy (Verified 03/30/20 10:49) Rash promethazine HCl [From Phenergan] Allergy (Verified 03/30/20 10:49) Vomiting tramadol Allergy (Verified 03/30/20 10:49) Rash codeine Adverse Reaction (Verified 03/30/20 10:49) Vomiting morphine Adverse Reaction (Verified 03/30/20 10:49) Vomiting ondansetron HCl [From Zofran] Adverse Reaction (Verified 03/30/20 10:49) Vomiting Primary Care Physician: Care Physician,No Primary [Primary Care Provider] - Review of Systems All systems negative except as indicated General: Denies: Chills, Fever, Sweats Eyes: Denies: Visual changes - bilaterally, Diplopia ENT: Denies: Rhinorrhea, Sore throat Cardiovascular: Denies: Chest pain, Palpitations Respiratory: Denies: Dyspnea, Cough, Dyspnea on exertion Gastrointestinal: Denies: Abdominal pain, Nausea, Vomiting, Diarrhea, Melena, Hematochezia Genitourinary: Denies: Dysuria, Hematuria, Frequency Musculoskeletal: Denies: Myalgias, Arthralgias, Neck pain, Back pain, Swelling, Extremity Pain Skin: Denies: Rash, Wounds Neurological: Denies: Headache, Weakness, Numbness Psych: Denies: Depression, Anxiety, Suicidal thoughts, Suicidal ideations <Alejandro Higgins - Last Filed: 03/30/20 12:11> Physical Exam Vital Signs/Narrative: Vital Signs Temp Pulse Resp BP Pulse Ox 03/30/20 10:46 92 16 157/131 H 98 03/30/20 10:40 99.7 F H 87 16 157/131 H 96 <Tim Newby - Last Filed: 03/30/20 12:07> Vital Signs/Narrative: Vital Signs Temp Pulse Resp BP Pulse Ox 03/30/20 10:46 92 16 157/131 H 98 03/30/20 10:40 99.7 F H 87 16 157/131 H 96 Inital Vital Signs reviewed: Yes General: Well nourished, Well developed, No Acute Distress Head: Normocephalic, Atraumatic Eyes: Perrl, EOMI ENT: Moist mucous membranes, No rhinorrhea Neck: Supple, Nontender Cardiovascular: Regular rate, Regular rhythm, No murmurs Respiratory: No distress, CTA bilaterally, Chest nontender Abdomen: Soft, Nontender, Nondistended, Normal bowel sounds Back: Nontender, Normal Inspection Extremities: Nontender, No edema Skin: Normal color, No rash Neurological: Alert, Oriented x3, Cranial nerves II-XII grossly intact, Normal Strength, Normal Sensation. Negative for: Confused, Disoriented, Parasthesia, Weakness Psychological: Normal affect, Normal Mood <Alejandro Higgins - Last Filed: 03/30/20 12:11> Diagnostic/Tx/Re-eval - Medical Decision Making Middle aged female being evaluated with our physician marketing assistant manager. Patient states she had a seizure today while at home on a couch. She does denies any fall or injury. Currently no complaints. She has a known history of seizure disorder. Physical exam vital signs are stable afebrile. She is in no distress. HEENT exam unremarkable. Neck nontender. Lungs clear to auscultation bilaterally. Heart regular rhythm no murmur. Abdomen soft nontender. Patient is moving all 4 extremities. Currently she is not seizing. She does have myoclonic jerking of her upper and lower extremities but while she is doing this she is awake, alert and talking. Carrying on a conversation with me and following commands. Neurologically she is awake and alert with no focal motor deficits. Patient be treated with p.o. Ativan because she is on that regularly. She was just here yesterday for a work-up for chest pain she had electrolytes and other labs done at that time. I do not feel any other testing or imaging is necessary and she will be discharged home. Impression: 1. Reported seizure at home with a history of seizure disorder 2. Myoclonic jerking <Tim Newby - Last Filed: 03/30/20 12:07> ED Disposition <Tim Newby - Last Filed: 03/30/20 12:07> <Alejandro Higgins - Last Filed: 03/30/20 12:11> - Plan for ED Patient: Disposition: Home or Assisted Living Diagnosis: Myoclonic jerking, Seizure, Epilepsy Instructions: ED Seizure Recurrent Adult Referrals: Sahil Bautista DO [STAFF PHYSICIAN] -
[2020-03-30] MEDS: LORazepam 1 MG Tablet 2 MG PO (11:14)
[2020-03-30 13:21] VITALS: BP 140/68; PULSE 72; RESP 18; O2SAT 98
--- OUTSIDE RECORDS SUMMARY | 2020-08-04 13:02 | XMS RPT_ITS | CCD ---
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 NEUTROPHIL 0.53 0.00 - 0.70 x10E9/L Normal 10-25-2019 [facility] (15444) Comment: Performed By: #### IFF ### [address] [address] BASOPHIL 0.08 0.00 - 0.10 x10E9/L Normal 10-25-2019 [facility] (39253) Comment: Performed By: #### MDIFF ### [address] [address] Basophils/100 WBC (Bld) 1.0 0.0 - 2.0 % Normal 2019 [facility] (73970) Comment: Performed By: #### MDIFF ### [address] [address] EOSINOPHIL 0.08 0.00 - 0.70 x10E9/L Normal 10-25-2019 [facility] (96157) Comment: Performed By: #### MDIFF ### [address] [address] LYMPHOCYTE 2.81 1.20 - 4.80 x10E9/L Normal 10-25-2019 [facility] (91217) Comment: Performed By: #### MDIFF ### [address] [address] Lymphocytes/100 WBC (Bld) 37.0 13.0 - 44.0 % Normal [facility] (00 000) Comment: Performed By: #### IFF ### [address] [address] Metamyelocytes/100 WBC 0.08 0.00 - 0.00 x10E9/L Abnormal 10-25 [facility] (Bld) [facility] (19934) Comment: Performed By: #### MDIFF ### [address] [address] MONOCYTE 0.46 0.10 - 1.00 x10E9/L Normal 10-25-2019 [facility] (22900) Comment: Performed By: #### MDIFF ### [address] [address] Monocytes/100 WBC (Bld) 6.0 2.0 - 10.0 % Normal 10-25 [facility] (46691) Comment: Performed By: #### MDIFF ### [address] [address] SEG NEUTROPHIL 3.57 1.20 - 7.00 x10E9/L Normal 10-25-2019 [facility] (30221) Comment: Performed By: #### MDIFF ### [address] [address] lipase on 8 Lipase [Catalytic 39 9 - 82 U/L Normal 10-25-2019 [facility] (19476) Comment: Result Comment: Venipuncture immediately after or during the administration of Metamizole may lead to falsely low results. Testing should be performed immediately prior to Metamizole dosing. M-luzbyx-t-benzoquinone imin e (metabolite of Acetaminophen) will generate erroneously lo w results in samples for patients that have taken toxic doses of acetaminophen. Performed By: #### LIPAS ### [address] [address] hcg,beta-quant on 2 HCG,BETA-QUANT <2 Normal 10-25-2019 [facility] (81616) Comment: Result Comment: Low-level po sitive HCG [...] usi ng a different test methodology at [facility] than other [facility]. Direct result comparison should only be made within t he same method. REF VALUES NON FEMALE <5 MALES <5 Performed By: #### HCGQU ### [address] [address] comprehensive panel on 2019-10-25 Albumin [Mass/Vol] 4.1 3.4 - 5.0 g/dL Normal 10-25-2019 [facility] (95385) Comment: Performed By: #### CMP ####[address] [id number] ALP [Catalytic activity/Vol] 56 33 - 110 U/L Normal 0 10-25-2019 [facility] (00 000) Comment: Performed By: #### CMP ####S [address] [address] ALT [Catalytic activity/Vol] 23 7 - 45 U/L Normal 0 10-25-2019 [facility] (00 000) Comment: Result Comment: Patients graciela ated with Sulfasalazine may generate falsely decreased results fo r ALT. Performed By: #### CMP ####S [address] [address] Anion gap [Moles/Vol] 14 10 - 20 mmol/L Normal 10-25-19 [facility] (11295) Comment: Performed By: #### CMP ####S [address] [address] AST [Catalytic activity/Vol] 24 9 - 39 U/L Normal 0 10-25-2019 [facility] (00 000) Comment: Performed By: #### CMP ####S [address] [address] Bilirubin [Mass/Vol] 0.4 0.0 - 1.2 mg/dL Normal 0 [facility] (23730) Comment: Performed By: #### CMP ####S [address] [address] Calcium [Mass/Vol] 8.7 8.6 - 10.3 mg/dL Normal 10-25-2019 [facility] (29222) Comment: Performed By: #### CMP ####S [address] [address] Chloride [Moles/Vol] 100 98 - 107 mmol/L Normal 0 [facility] (27387) Comment: Performed By: #### CMP ####S [address] [address] Creatinine [Mass/Vol] 1.23 0.50 - 1.05 mg/dL High 2019 [facility] (00 000) Comment: Performed By: #### CMP ####S [address] [address] GFR- AM. 57 >60 mL/min/1.73m2 Abnormal 10-25-2019 [facility] (62956) Comment: Result Comment: CALCULATIONS OF ESTIMATED GFR ARE PERFORMED USING THE MDRD STUDY EQUATIO N FOR THE IDMS-TRACEABLE CREATININE ME THODS. CLIN CHEM 2007;53:766-72 Performed By: #### CMP ####S [address] [address] GFR-NON AM. 47 >60 mL/min/1.73m2 Abnormal 2019 [facility] (00 000) Comment: Performed By: #### CMP ####S [address] [address] Glucose [Mass/Vol] 96 74 - 99 mg/dL Normal 10-25-2019 [facility] (06966) Comment: Performed By: #### CMP ####S [address] [address] HCO3 (Bld) [Moles/Vol] 28 21 - 32 mmol/L Normal 020 [facility] (28708) Comment: Performed By: #### CMP ####S [address] [address] Potassium [Moles/Vol] 3.7 3.5 - 5.3 mmol/L Normal 10-25-19 20 [facility] (00 000) Comment: Performed By: #### CMP ####S [address] [address] Protein [Mass/Vol] 6.3 6.4 - 8.2 g/dL Low 10-25-2019 [facility] (89508) Comment: Performed By: #### CMP ####S [address] [address] Sodium [Moles/Vol] 138 136 - 145 mmol/L Normal 10-25-2019 [facility] (72562) Comment: Performed By: #### CMP ####S [address] [address] Urea nitrogen [Mass/Vol] 12 6 - 23 mg/dL Normal 10-25 [facility] (79388) Comment: Performed By: #### CMP ####S [address] [address] clinical intervention - pharmacy on 2019-10-25 Clinical Pharmacist's Clinical Intervention: Norm al 10-25-2019 [facility] Intervention - Active and Pending Medications: [facility] Morphine Injectable, DOSE = 4 mg IntraVenous Push Once, 25-Oct-2019, Active (95069) Pharmacist intervention: Contacted nurse Type of recommendation: [...] - 5 minutes Electronic Signatures: Odilia Holcomb ([facility]) (Signed 25-Oct-2019 14:15) Authored: Pharmacist's Clinical Intervention Last Updated: 25-Oct-2019 14:15 by Odilia Holcomb ([facility]) chest 1 view on CHEST 1 VIEW Normal 10-25-2019 [facility]: CHEST 1 VIEW; 10/25/2019 2:12 pm INDICATION: shorntess of breath. COMPARISON: 03/22/2019 ACCESSION NUMBER(S): [id number] ORDERING CLINICIAN: TENISHA LANE FINDINGS: CHEST AP [...] distribution 14.0 11.5 - 14.5 % Normal [facility] width (RBC) [Ratio] [facility] (37366) Comment: Performed By: #### CBCDF ### [address] [address] Hematocrit (Bld) [Volume 41.2 36.0 - 46.0 % Normal [facility] fraction] Health (00 000) Comment: Performed By: #### CBCDF ### [address] [address] Hemoglobin (Bld) 14.0 12.0 - 16.0 g/dL Normal 10-25-2019 [facility] [Mass/Vol] Health (0 0000) Comment: Performed By: #### CBCDF ### [address] [address] MCHC (RBC) [Mass/Vol] 33.9 32.0 - 36.0 g/dL Normal 2019 [facility] (00 000) Comment: Performed By: #### CBCDF ### [address] [address] MCV (RBC) [Entitic vol] 91 80 - 100 fL Normal 2019 [facility] (26322) Comment: Performed By: #### CBCDF ### [address] [address] Nucleated RBC/100 WBC 0.1 /100 WBC Normal 10-25-19 [facility] (Bld) [Ratio] (95235 ) Comment: Performed By: #### CBCDF ### [address] [address] Platelets (Bld) [#/Vol] 103 150 - 450 x10E9/L Low 2019 [facility] (00 000) Comment: Performed By: #### CBCDF ### [address] [address] RBC (Bld) [#/Vol] 4.55 4.00 - 5.20 x10E12/L Normal 10-25-2019 [facility] (00 000) Comment: Performed By: #### CBCDF ### [address] [address] WBC (Bld) [#/Vol] 7.6 4.4 - 11.3 x10E9/L Normal 10-25-2019 [facility] (12229) Comment: Performed By: #### CBCDF ### [address] [address] DIFFERENTIAL SEE MANUAL DIFF Normal 10-25-2019 [facility] (37379) Comment: Performed By: #### CBCDF ### [address] [address] nut grinder - procedure visit on 2019-09-25 NUT GRINDER - Chief Complaint Normal 09-25-2019 [facility] Procedure Visit (000 00) PT HERE TODAY FOR IUD REMOVAL AND INSERTION OF MIRENA OFFICE SUPPLY. [facility]: [id number] EXP: 06/2021 LOT# [id number] History of Present Illness 44-year-old with abnormal [...] TAKE 1 TABLET T WICE DAILY; Therapy: [id number] to Recorded Dispense: 0 Days ; #: Suffic ient Tablet Delayed Release; Refill: 0; SHARLENE = Y; Record; Last Updated By: Salma Montgomery; 05/31/2013 9:56:09 AM Depakote ER 500 MG Oral Tablet Extended Release 24 Hour; TRINIDAD E 1 TABLET BY MOUTH TWICE A DAY; Therapy: [id number] to Recorded Rx By: KEYSHA; Dispense: 30 [...] MG TOT AL) BY MOUTH DAILY; Therapy: [id number] to Recorded Rx By: MENDY; Dispense: 30 D ays ; #:30; Refill: 0; SHARLENE = N; Record; Last Updated By: Minerva Hauser; 08/07/2019 10:53:56 AM Keppra 1000 MG Oral Tablet; TAKE 1 TABLET TWICE DAILY; Therapy: [id number] to Recorded Dispense: 0 Days ; #:60 Tabl et; Refill: 0; SHARLENE = Y; Record; Last Updated By: Salma Montgomery; 05/31/2013 9:56:09 AM Keppra 750 MG Oral Tablet; TAKE 1 TABLET BY MOUTH TWICE A DA Y; Therapy: 93Pzw5043 to Recorded Rx By: KEYSHA; Dispense: 30 [...] TAKE 1 TABLET DAILY DIRECTE D; Therapy: [id number] to Recorded Dispense: 0 Days ; #:30 Tabl et; Refill: 0; SHARLENE = N; Record; Last Updated By: Salma Montgomery; 05/31/2013 9:56:09 AM LORazepam 1 MG Oral Tablet; TAKE 1 TABLET BY MOUTH FOUR TIME S A DAY; Therapy: [id number] to Recorded Rx By: KEYSHA; Dispense: 30 D ays ; #:120; Refill: 0; SHARLENE = N; Record; Last Updated By: Minerva Hauser; 08/07/2019 10:53:56 AM LORazepam 1 MG Oral Tablet; TAKE 1 TABLET EVERY 6 TO 8 HOURS NEEDED; Therapy: [id number] to Recorded Dispense: 0 Days ; #: [...] MOUTH EVERY DAY AT SUPPER TIME; Therapy: 83Cus3474 to Recorded Rx By: KEYSHA; Dispense: 30 D ays ; #:30; Refill: 0; SHARLENE = N; Record; Last Updated By: Minerva Hauser; 08/07/2019 10:53:56 AM Potassium Chloride ER 10 MEQ Oral Capsule Extend ed Release; TAKE 1 CAPSULE BY MOUTH TWICE A DAY; Therapy: [id number] to Recorded Rx By: MENDY; Dispense: 30 D ays ; #:60; Refill: 0; SHARLENE = N; Record; Last Updated By: Minerva Hauser; 08/07/2019 10:53:56 AM Therems-H Oral Tablet; TAKE 1 TABLET DAILY; Therapy: 64Ryp6484 to Recorded Dispense: 0 Days ; #:30 Tabl et; Refill: 0; SHARLENE = N; Record; Last Updated By: Salma Montgomery; 05/31/2013 9:56:09 AM Vitals Vital Signs Recorded: 90Cih4669 10:03AM Lgmjngjs269 Vkitvadxz15 Height4 ft 8 in Iqpobu137 lb BMI Kqokhgkyoi27.01 BSA Calculated1.67 Physical Exam General: None acute [...] 7.5. The Mirena IUD was loaded into printing services coordinator and introduced using appropriate technique. Strings trimmed [...] Status: Hold For - Scheduling Requested for: [id number] Ordered Stat;For: Encounter for removal and reinsertion [...] under standing. Signatures Electronically signed by : nAel Morgan DO; Sep 25 2019 4:33P M TRACY (Author) triage - ed on 2018 Triage - ED Quick Triage: Normal 09-07-2019 [facility] Are You no H chely (82626) Have You Given In The Last 6 [...] obeys commands Best Verbal Response: (V5) oriented Calera Score: 15 Cough lasting greater than 3 [...] Arrival: stretcher Mode of Arrival: ambulance Agency: [facility] ([place] [employer]) Arrival From: assisted living facility ([facility]) Accompanied By: self Language: Spoken Language Preferred: Bolivian Reading Language Preferre d: Bolivian Steel Cutter Requested: no retort firer was requested MDRO: History of MDRO: no [...] Risk Screen - Preferred Language: Normal 2018 [facility] Preferred Language: [facility] Preferred Language for Discussing Health Care (patient/desig nee)Bolivian (10115) Advanced Directives: Advance Directive/DNRno Advance Directive Information [...] Learning Preferencesverbal instruction Cultural Considerationsnone Developmental Considerationsnone Rastafari Considerationsnone Learning Assessment (Other Learner): Learning Assessment (Other Learner): Other learner availableno Pressure Injury/TB/Substance: Pressure Injury: Pressure Injury Present on Admissionno Do you have a coughno Substance Use Current or Former 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: 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, 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, Alcohol, Street Drugs Admission Risk Screen: Significant IndicatorsComplete CAGE: CAGE: Is this an injured patient at a Trauma Center ([facility]/[place] rma/Cam[place]): no Electronic Signatures: Maria Elena Kramer (RN) (Signed 07-Sep-2019 19:29) Authored: Preferred Language, Advanced Directives, Family Vi olence Adult, Learning Assessment (Patient), Learning Assessment (Ot her Learner), Pressure Injury/TB/Substance, CAGE Last Updated: 07-Sep-2019 19:29 by Maria Elena Kramer (RN) red cell morphology on 2019-09-07 RBC morphology finding Nom NORMAL Normal [facility] ([facility]) (45058) Comment: Performed By: #### HH #### [facility] [address] [place] [address] provider note - ed v2 on 2019-09-07 Provider Note - Provider Note - ED v2: Normal 1 11-07-2018 [facility] ED v2 Chart Review: [facility] ED NOTES (59955) ED NOTES: The patient was [facility] from the [facility] because of abdomi nal pain. 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 Data Referenced From Triage - ED 07-Sep-2019 19:17 manual differential on 2019-09-07 % EOSINOPHIL 0.0 0.0 - 6.0 % Normal 09-07-2019 [facility] (74936) Comment: Performed By: #### HH #### [address] [address] % SEG NEUTROPHIL 65.0 40.0 - 80.0 % Normal 09-07-2019 [facility] (57936) Comment: Result Comment: Percent diff erential counts (%) should be interpreted in the context of the absolute cell counts (cells/L). Performed By: #### HH #### [address] [address] ANC 3.90 1.20 - 7.70 x10E9/L Normal 09-07-2019 [facility] (84170) Comment: Performed By: #### HH #### [address] [address] BAND NEUTROPHIL 0.06 0.00 - 0.70 x10E9/L Normal 09-07-2019 [facility] (10082) Comment: Performed By: #### HH #### [address] [address] BASOPHIL 0.00 0.00 - 0.10 x10E9/L Normal 09-07-2019 [facility] (98031) Comment: Performed By: #### HH #### [address] [address] EOSINOPHIL 0.00 0.00 - 0.70 x10E9/L Normal 09-07-2019 [facility] (27541) Comment: Performed By: #### HH #### [address] [address] LYMPHOCYTE 1.59 1.20 - 4.80 x10E9/L Normal 09-07-2019 [facility] (36464) Comment: Performed By: #### HH #### [address] [address] MONOCYTE 0.41 0.10 - 1.00 x10E9/L Normal 09-07-2019 [facility] (37080) Comment: Performed By: #### HH #### [address] [address] SEG NEUTROPHIL 3.84 1.20 - 7.00 x10E9/L Normal 09-07-2019 [facility] (65748) Comment: Performed By: #### HH #### [address] [address] Band form neutrophils/100 1.0 0.0 - 5.0 % Normal 08-19 [facility] 350 WBC (Bld) [place] (91909) Comment: Ordering Provider: NICKO TORRES [address] Performed By: #### HH #### [address] [address] Basophils/100 WBC (Bld) 0.0 0.0 - 2.0 % Normal 2018 [facility] [address] [place] ([address]18) Comment: Ordering Provider: NICKO TORRES 76766 Performed By: #### HH #### [address] [address] Lymphocytes/100 WBC (Bld) 27.0 % Normal 08-19 [facility] [address] [place] (11824) Comment: Reference Range: 13.0 - 44.0 Ordering Provider: NICKO TORRES 31351 Performed By: #### HH #### [address] [address] Monocytes/100 WBC (Bld) 7.0 2.0 - 10.0 % Normal 09-07 [facility] [address] [place] (53091) Comment: Ordering Provider: NICKO TORRES 22777 Performed By: #### HH #### [address] [address] lipase, serum on 05-09-21 Lipase [Catalytic 40 9 - 82 U/L Normal 09-07-2019 [facility] 350 activity/Vol] [place] [facility] (20512) Comment: Venipuncture immediately aft er or during the administration of Metamizole may lead to falsely low resu lts. Testing should be performed immediately prior to Metamizole dosing. K-pgrcxz-j-benzoquinone imine (metabolite of Acetaminophen) will generate erroneously low results in samples for patients that have taken toxic doses of acetaminophen. Ordering Provider: NICKO TORRES 31252 Result Comment: Venipuncture immediately after or during the administration of Metamizole may lead to falsely low results. Testing should be performed immediately prior to Metamizole dosing. E-cnjadn-d-benzoquinone imin e (metabolite of Acetaminophen) will generate erroneously lo w results in samples for patients that have taken toxic doses of acetaminophen. Performed By: #### HH #### [address] [address] comprehensive panel on 2019-09-07 Albumin [Mass/Vol] 4.1 3.4 - 5.0 g/dL Normal 09-07-2019 [facility] (70885) Comment: Performed By: #### HH #### [address] [address] ALT [Catalytic activity/Vol] 19 7 - 45 U/L Normal 1 11-07-2018 [facility] (00 000) Comment: Result Comment: Patients graciela ated with Sulfasalazine may generate falsely decreased results fo r ALT. Performed By: #### HH #### [address] [address] AST [Catalytic activity/Vol] 21 9 - 39 U/L Normal 1 11-07-2018 [facility] (00 000) Comment: Performed By: #### HH #### [address] [address] GFR- AM. 46 >60 mL/min/1.73m2 Abnormal 09-07-2019 [facility] (96233) Comment: Result Comment: CALCULATIONS OF ESTIMATED GFR ARE PERFORMED USING THE MDRD STUDY EQUATIO N FOR THE IDMS-TRACEABLE CREATININE ME THODS. CLIN CHEM 2007;53:766-72 Performed By: #### HH #### [address] [address] GFR-NON AM. 38 >60 mL/min/1.73m2 Abnormal 2018 [facility] (00 000) Comment: Performed By: #### HH #### [address] [address] HCO3 (Bld) [Moles/Vol] 32 21 - 32 mmol/L Normal 019 [facility] (62964) Comment: Performed By: #### HH #### [address] [address] ALP [Catalytic 55 33 - 110 U/L Normal 09-07-2019 [facility] 350 activity/Vol] [facility] est (79840) Comment: Ordering Provider: NICKO TORRES 41610 Performed By: #### HH #### [address] [address] Anion gap [Moles/Vol] 13 10 - 20 mmol/L Normal 09-07-20 19 [facility] [address] [place] ([address]47) Comment: Ordering Provider: NICKO TORRES 90141 Performed By: #### HH #### [address] [address] Bilirubin [Mass/Vol] 0.3 0.0 - 1.2 mg/dL Normal 9 [facility] [address] [place] ([address]39) Comment: Ordering Provider: NICKO TORRES 54610 Performed By: #### HH #### [address] [address] Calcium [Mass/Vol] 9.7 8.6 - 10.3 mg/dL Normal 09-07-2019 [facility] [address] [place] ([address]503) Comment: Ordering Provider: NICKO TORRES 60511 Performed By: #### HH #### [address] [address] Chloride 97 98 - 107 mmol/L below low 09-07-2019 [facility] 350 [Moles/Vol] threshold [place] ([address]) Comment: Ordering Provider: NICKO TORRES 81208 Performed By: #### HH #### [address] [address] Creatinine 1.47 mg/dL above high 09-07-2019 [facility] 350 [Mass/Vol] threshold [place] (10359) Comment: Reference Range: 0.50 - 1.05 Ordering Provider: NICKO TORRES 72198 Performed By: #### HH #### [address] [address] Glucose [Mass/Vol] 94 74 - 99 mg/dL Normal 09-07-2019 [facility] [address] [place] ([address]687) Comment: Ordering Provider: NICKO TORRES 39645 Performed By: #### HH #### [address] [address] Potassium 4.4 3.5 - 5.3 mmol/L Normal 09-07-2019 [facility] 350 [Moles/Vol] [place] ([address]) Comment: Ordering Provider: NICKO TORRES 54982 Performed By: #### HH #### [address] [address] Protein 6.3 6.4 - 8.2 g/dL below low 09-07-2019 [facility] 350 [Mass/Vol] threshold [place] ([address]) Comment: Ordering Provider: NICKO TORRES 27610 Performed By: #### HH #### [address] [address] Sodium [Moles/Vol] 138 136 - 145 mmol/L Normal 09-07-2019 [facility] [address] [place] ([address]) Comment: Ordering Provider: NICKO TORRES 71739 Performed By: #### HH #### [address] [address] Urea nitrogen 20 6 - 23 mg/dL Normal 09-07-2019 [facility] 350 [Mass/Vol] [place] ([address]) Comment: Ordering Provider: NICKO Sanchez Performed By: #### HH #### [address] [address] complete blood count + differential on 2019-09-07 Erythrocyte 15.2 See Below % above high 09-07-2019 [facility] Health 350 distribution width threshold [place] ([address]) (RBC) [Ratio] Comment: Reference Range: 11.5 - 14.5 Ordering Provider: NICKO Sanchez Hematocrit (Bld) [Volume 38.5 See Below % 09-07 [facility] 350 [place] fraction] ([address]) Comment: Reference Range: 36.0 - 46.0 Ordering Provider: NICKO Sanchez Hemoglobin (Bld) 13.1 See Below g/dL 09-07-2019 [facility] [Mass/Vol] [place] ([address]) Comment: Reference Range: 12.0 - 16.0 Ordering Provider: NICKO Sanchez MCHC (RBC) [Mass/Vol] 34.0 See Below g/dL 09-07-20 19 [facility] 350 [place] ([address]) Comment: Reference Range: 32.0 - 36.0 Ordering Provider: NICKO Sanchez MCV (RBC) [Entitic vol] 91 80 - 100 fL 2018 [facility] 350 [place] ([address]) Comment: Ordering Provider: NICKO Sanchez Platelets (Bld) 92 150 - 450 {x10E9/L} below low 09-07-[facility] [#/Vol] threshold [place] ([address]) Comment: Ordering Provider: NICKO TORRES [address]32[address] RBC (Bld) [#/Vol] 4.25 See Below {x10E12/L} 09-07-2019 [facility] 350 [place] ([address]498) Comment: Reference Range: 4.00 - 5.20 Ordering Provider: NICKO TORRES [address]113 WBC (Bld) [#/Vol] 5.9 4.4 - 11.3 {x10E9/L} 09-07-2019 [facility] 350 [place] ([address]) Comment: Ordering Provider: NICKO Sanchez SEE MANUAL DIFF 09-07-2019 [facility] 350 [place] ([address]) Comment: Ordering Provider: NICKO Guadarrama03 cbc and differential on 2019-09-07 DIFFERENTIAL SEE MANUAL DIFF Normal 09-07-2019 [facility] (28193) Comment: Performed By: #### HH #### [address] [address] Erythrocyte distribution 15.2 11.5 - 14.5 % High [facility] width (RBC) [Ratio] Health (63404) Comment: Performed By: #### HH #### [address] [address] Hematocrit (Bld) [Volume 38.5 36.0 - 46.0 % Normal [facility] fraction] [facility] (00 000) Comment: Performed By: #### HH #### [address] [address] Hemoglobin (Bld) 13.1 12.0 - 16.0 g/dL Normal 09-07-2019 [facility] [Mass/Vol] [facility] (0 0000) Comment: Performed By: #### HH #### [address] [address] MCHC (RBC) [Mass/Vol] 34.0 32.0 - 36.0 g/dL Normal 2018 [facility] (00 000) Comment: Performed By: #### HH #### [address] [address] MCV (RBC) [Entitic vol] 91 80 - 100 fL Normal 2018 [facility] (13194) Comment: Performed By: #### HH #### [address] [address] Platelets (Bld) [#/Vol] 92 150 - 450 x10E9/L Low 2018 [facility] (80086) Comment: Performed By: #### HH #### [address] [address] RBC (Bld) [#/Vol] 4.25 4.00 - 5.20 x10E12/L Normal 09-07-2019 [facility] (00 000) Comment: Performed By: #### HH #### [address] [address] WBC (Bld) [#/Vol] 5.9 4.4 - 11.3 x10E9/L Normal 09-07-2019 [facility] (42782) Comment: Performed By: #### HH #### [address] [address] No panel information on 2019-09-07 Albumin BCP dye 4.1 3.4 - 5.0 g/dL 09-07-2019 [facility] 350 [Mass/Vol] [place] ([address]) Comment: Ordering Provider: NICKO TORRES 48073 ALT With P-5'-P [Catalytic 19 7 - 45 U/L [facility] 350 [place] activity/Vol] (28977 ) Comment: Patients treated with Sulfas alazine may generate falsely decreased results for ALT. Ordering Provider: NICKO TORRES 06607 AST With P-5'-P [Catalytic 21 9 - 39 U/L [facility] 350 [place] activity/Vol] (93641 ) Comment: Ordering Provider: NICKO TORRES [address]259 Basophils (Bld) 0.00 See Below {x10E9/L} 09-07-2019 [facility] [#/Vol] [place] ([address]) Comment: Reference Range: 0.00 - 0.10 Ordering Provider: NICKO TORRES 49024 CO2 [Moles/Vol] 32 21 - 32 mmol/L 09-07-2019 [facility] ([address]) Comment: Ordering Provider: NICKO Sanchez Eosinophils (Bld) 0.00 See Below {x10E9/L} 09-07-2019 [facility] 350 [#/Vol] [place] ([facility]) Comment: Reference Range: 0.00 - 0.70 Ordering Provider: NICKO Sanchez Eosinophils/100 WBC (Bld) 0.0 0.0 - 6.0 % 08-19 [facility] ([facility]) Comment: Ordering Provider: NICKO Sanchez Lymphocytes (Bld) 1.59 See Below {x10E9/L} 09-07-2019 [place] [address] [#/Vol] [place] ([facility]) Comment: Reference Range: 1.20 - 4.80 Ordering Provider: NICKO Sanchez Monocytes (Bld) 0.41 See Below {x10E9/L} 09-07-2019 [place] [address] [#/Vol] [place] ([address]21) Comment: Reference Range: 0.10 - 1.00 Ordering Provider: NICKO Sanchez Segmented neutrophils/100 65.0 See Below % 08-19 [place] [address] WBC (Bld) [place] ([address]79) Comment: Reference Range: 40.0 - 80.0 Percent differential counts (%) should be interpreted in the context o f the absolute cell counts (cells/L). Ordering Provider: NICKO TORRES 71393 3.84 See Below {x10E9/L} 09-07-2019 [facility] [address] ([facility]) Comment: Reference Range: 1.20 - 7.00 Ordering Provider: NICKO Sanchez 38 >60 {mL/min/1.73m2} Abnormal 09-07-2019 [facility] [address] [place] ([address]) Comment: Ordering Provider: NICKO Sanchez 0.06 See Below {x10E9/L} 09-07-2019 [facility] 350 [place] ([address]750) Comment: Reference Range: 0.00 - 0.70 Ordering Provider: NICKO Sanchez NORMAL 09-07-2019 [place] [address] [place] ([address]51) Comment: Ordering Provider: NICKO Sanchez 3.90 See Below {x10E9/L} 09-07-2019 [place] [address] [place] ([address]689) Comment: Reference Range: 1.20 - 7.70 Ordering Provider: NICKO Sanchez 46 >60 {mL/min/1.73m2} Abnormal 09-07-2019 [facility] 350 [place] ([address]) Comment: CALCULATIONS OF ESTIMATED GF R ARE PERFORMED USING THE MDRD STUDY EQUATION FOR THE IDMS-TRACEABLE CREAT ININE METHODS. CLIN CHEM 2007;53:766-72 Ordering Provider: NICKO Sanchez knee cmplt, 4 or more views on 2019-08-21 KNEE CMPLT, 4 OR Normal [address] [place] [address] MORE VIEWS Patient [facility]: [facility] ([address]) STUDY: KNEE; COMPLT, 4 OR MORE VIEWS;Left; 08/20/2019 10:00 pm INDICATION: fall. COMPARISON: None. ACCESSION NUMBER(S): [id number] ORDERING CLINICIAN: TENISHA LANE FINDINGS: Four views left knee. No acute fracture or malalignment. Bones appear normally min eralized. No significant degenerative changes. No knee effusion. Soft tissues are within normal limits. IMPRESSION: Normal left knee radiography. Electronically signed by: HEIDY JARA MD No panel information on 2019-08-21 XR Knee 4 Interpreted by: HEIDY Del [place] 2018 [facility] 350 evan JARA08/20/19 [place] ([address]) 22:23MRN: [id number] Name: [facility] REEMA STUDY:KNEE; COMPLT, 4 OR MORE VIEWS;Left; 08/20/2019 10:00 pm INDICATION:fall. COMPARISON:None. ORDERING CLINICIAN:TENISHA LANE FINDINGS:Four views left knee. No acute fracture or malalignment. Bones appear normally mineralized.No significant degenerative changes. No knee effusion. Soft tissuesare within normal limits. IMPRESSION:Normal left knee radiography. Electronically signed by: HEIDY JARA 08/20/19 22:23 Comment: Ordering Provider: TENISHA Mckoy 82887 triage - ed on 2018 Triage - ED Quick Triage: Normal 08-20-2019 [facility] Are You no H ealth (53134) Have You Given In The Last 6 [...] BMI (kg/m2): 39.266 Calculated BSA (m2) 1.77 [place] Coma Scale: Best Eye Response: (E4) spontaneous [...] assisted living facility Accompanied By: self and wound care center consultant Language: Spoken Language Preferred: Bolivian Reading Language Preferre d: Bolivian PRIMARY ASSESSMENT ABCD Normal Findings: airway open and patent PAST MEDICAL HISTORY Immunization History: Last Known Tetanus Immunization: Less than 5 years TRAVEL HISTORY Travel Exposure History: NO travel to [facility] in the past 30 days Past Medical [...] Risk Screen - Preferred Language: Normal 2018 [facility] Preferred Language: [facility] Preferred Language for Discussing Health Care (patient/desjose rodriguez)Bolivian (31534) Advanced Directives: Advance Directive/DNRno Family Violence Adult: Abuse Screen: Are you or have you been threatened or abused physically, em otionally, or sexually by anyoneno Learning Assessment (Patient): Learning Assessment (Patient): Patient is Able to be Assessed for Learningyes Factors Influencing Readiness to Learnmotivation to learn Factors that Impact Ability to Learnnone Devices/Methods Used to Communicatenone Learning Preferencesaudio Cultural Considerationsnone Developmental Considerationsnone Rastafari Considerationsnone Learning Assessment (Other Learner): Learning Assessment (Other Learner): Other learner availableno Pressure Injury/TB/Substance: Pressure Injury: Pressure Injury Present on Admissionno Do you have a coughno Substance Use Current or Former 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: 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, 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, Alcohol, Street Drugs Admission Risk Screen: Significant IndicatorsComplete CAGE: CAGE: Is this an injured patient at a Trauma Center ([facility]/[place]): no Electronic Signatures: Megan Linton (RN) (Signed 20-Aug-2019 21:45) Authored: Preferred Language, Advanced Directives, Family Vi olence Adult, Learning Assessment (Patient), Learning Assessment (Ot her Learner), Pressure Injury/TB/Substance, CAGE Last Updated: 20-Aug-2019 21:45 by Megan Linton (RN) provider note - ed v2 on 2019-08-20 Provider Note - Provider Note - ED v2: Normal 1 10-20-2018 [facility] ED v2 Chart Review: [facility] ED NOTES (68848) ED NOTES: HPI: Patient is a resident of a [facility]pc and just prior to arrival she had [...] and oriented x4 , GCS 15 , screen examiner II-XII grossly intact. Sensation and motor function [...] Description:epileptic seizure Description:anxiety Description:major depressive disorder Description:hypertension NUT GRINDER: Is : no(1) Is : no(1) RESULTS/VITAL [...] SIGNS: T PRBP SpO2O2(LPM) %FiO2 Method 20-Aug-2019 21:02:00-36.031117264/75 95 room air, no respira tory support [...] no acute distress. Patient discharged back to fpc faci lity. The CAT scan of your [...] patient: no Electronic Signatures: Tenisha Lane I (DISTRIBUTION TRANSFORMER ASSEMBLER-MANAGER ELECTRICAL) (Signed 20-Aug-2019 22:33) Authored: Provider Note - ED v2 Last Updated: 20-Aug-2019 22:[address] I (DISTRIBUTION TRANSFORMER ASSEMBLER-MANAGER ELECTRICAL) References: 1. Data Referenced From Triage - ED 20-Aug-2019 21:02 ct head wo contrast on 2019-08-20 CT HEAD WO Normal 08-20-[address] [facility] CONTRAST [facility]: [facility] ([id number]) STUDY: CT HEAD WO CONTRAST; CT C-SPINE WO CONTRAST;; 08/20/2019 9:58 pm INDICATION: fall. COMPARISON: 03/18/[address] cervical spine from 03/16/2019. ACCESSION NUMBER(S): [id number]; [id number] ORDERING CLINICIAN: TENISHA LANE TECHNIQUE: Noncontrast CT [...] 08-20-[facility] [place] [place] [facility] ([address]) STUDY: CT HEAD WO CONTRAST; CT C-SPINE WO CONTRAST;; 08/20/2019 9:58 pm INDICATION: fall. COMPARISON: 03/18/[address] cervical spine from 03/16/2019. ACCESSION NUMBER(S): [id number]; [id number] ORDERING CLINICIAN: TENISHA LANE TECHNIQUE: Noncontrast CT [...] Head Interpreted by: HEIDY Del Rio [address]08/20/19 [place] ([address]) contrast 22:22MRN: [id number] Name: REEMA MOTTA STUDY:CT HEAD WO CONTRAST; CT C-SPINE WO CONTRAST;; 08/20/2019 9:58 pm INDICATION:fall. COMPARISON:03/18/[address] cervical spine from 03/16/2019. [id number] ORDERING CLINICIAN:TENISHA LANE TECHNIQUE:Noncontrast CT exams of [...] 08/20/19 22:22 Comment: Ordering Provider: TENISHA Mckoy 46860 Interpreted by: HEIDY Del [place] 08-20-[address]08/20/19 22:22MRN: Jaspal [id number]) [id number] Name: REEMA MOTTA STUDY:CT HEAD WO CONTRAST; CT C-SPINE WO CONTRAST;; 08/20/2019 9:58 pm INDICATION:fall. COMPARISON:03/18/[address] cervical spine from 03/16/2019. [id number] ORDERING CLINICIAN:TENISHA LANE TECHNIQUE:Noncontrast CT exams of [...] 08/20/19 22:22 Comment: Ordering Provider: TENISHA Mckoy [address]59[address] nut grinder - office visit on 2019-08-07 NUT GRINDER - Chief Complaint Normal 08-07-2019 [facility] Office Visit (33277) PT HERE TODAY FOR US RESULTS History [...] SHARLENE = N; Record; Last Updated By: Minevra Hauser; 08/07/2019 10:46:04 AM Depakote ER 500 [...] MG TOT AL) BY MOUTH DAILY; Therapy: [id number] to Recorded Rx By: MENDY; Dispense: 30 D ays ; #:30; Refill: 0; SHARLENE = N; Record; Last Updated By: Minerva Hauser; 08/07/2019 10:53:56 AM Keppra 750 MG Oral Tablet; TAKE 1 TABLET BY MOUTH TWICE A DA Y; Therapy: [id number] to Recorded Rx By: KEYSHA; Dispense: 30 [...] MOUTH FOUR TIME S A DAY; Therapy: 22Oce5523 to Recorded Rx By: KEYSHA; Dispense: 30 [...] MOUTH EVERY DAY AT SUPPER TIME; Therapy: 38Drw2524 to Recorded Rx By: KEYSHA; Dispense: 30 D ays ; #:30; Refill: 0; SHARLENE = N; Record; Last Updated By: Minerva Hauser; 08/07/2019 10:53:56 AM Potassium Chloride ER 10 MEQ Oral Capsule Extend ed Release; TAKE 1 CAPSULE BY MOUTH TWICE A DAY; Therapy: 72Jct1165 to Recorded Rx By: MENDY; Dispense: 30 D ays ; #:60; Refill: 0; SHARLENE = N; Record; Last Updated By: Minerva Hauser; 08/07/2019 10:53:56 AM Vitals Vital Signs Recorded: 07Aug2019 11:01AM Pqbhuwyp154 Twjwbvmza10 Height4 ft 7.12 in Nkfagq964 lb 4.83 oz BMI Bexjwdcckl09.11 BSA Calculated1.65 Physical Exam General: None acute distress Eye: Intraocular movements are intact HEENT: Normocephalic Respiratory: Respirations are nonlabored Gastrointestinal: Nondistended Musculoskeletal: Normal range of motion Neurologic: Alert and orientedx3 Psychiatric: Cooperative appropriate mood and affect. Results/Data Ultrasound Pelvis Transabdom inal With Ltkeoskrqsxl46Ewn9450 10:44Anel Livingston Test NameResultFlagReference Ultrasound Pelvis Transabdominal With Transvaginal(Report) Interpreted by: TIFFANIE PARK 08/03/19 22:49 Patient Name: REEMA MOTTA STUDY: US PELVIS TRANSABDOMINAL WITH TRANSVAGINAL; 08/03/2019 10:44 am INDICATION: PELVIC PAIN. COMPAR BRIGIDA: None. ACCESSION NUMBER (S): [id number] ORDERING CLINICIAN: ANEL MORGAN TECHNIQUE: Transabdominal and [...] [Volume 36.5 36.0 - 46.0 % Normal [facility]] Health (00 000) Comment: Performed By: #### HH #### [address] [address] Hemoglobin (Bld) 12.3 12.0 - 16.0 g/dL Normal 08-04-2019 [facility] [Mass/Vol] Health (0 0000) Comment: Performed By: #### HH #### [address] [address] us pelvis transabdominal with transvagin al on 2019-08-03 US PELVIS Normal 08-03-2019 [facility] TRANSABDOMINAL WITH Patient [facility]: [facility] TRANSVAGINAL ([id number]) STUDY: US PELVIS TRANSABDOMINAL WITH TRANSVAGINAL; 08/03/2019 10:44 am INDICATION: PELVIC PAIN. COMPARISON: None. ACCESSION NUMBER(S): [id number] ORDERING CLINICIAN: ANEL MORGAN TECHNIQUE: Transabdominal and [...] 2019-08-03 Interpreted by: TIFFANIE NAVARRO Normal 08-03-2019 [address] 22:49MRN: Jaspal ([id number]) [id number] Name: REEMA MOTTA STUDY:US PELVIS TRANSABDOMINAL WITH [...] PCR. Not Detected Not Detected Normal 2018 [facility] (57142) Comment: Result Comment: Xpert CT/NG Assay performance has not been evaluated in patients less than 14 years of age. Performed By: #### [id number] #### MARCUS RemHemo [facility] [place] [address] Gonorrhoeae by PCR Not Detected Not Detected Normal 07-19 [facility] (87036) Comment: Result Comment: Xpert CT/NG Assay performance has not been evaluated in patients less than 14 years of age. Performed By: #### [id number] #### MARCUS RemHemo [facility] [place] [address] ct abdomen/pelvis w/ contrast on 2019-07-05 CT Abdomen/Pelvis w/ Exam Date/Time: Normal [facility] Contrast 07/05/2019 13:33 EDT [facility] Reason for Exam: s tem ([id number]) ABDOMINAL PAIN AND TENDERNESS Report STUDY: CT Abdomen/Pelvis w/ Contrast; 07/05/2019 1:33 pm INDICATION: ABDOMINAL PAIN AND TENDERNESS. COMPARISON: 12/02/2018 ACCESSION NUMBER(S): [id number] ORDERING CLINICIAN: Holden Velasco TECHNIQUE: Contiguous axial [...] Magnesium [Mass/Vol] 2.0 1.6-2.4 mg/dL Normal 9 [facility] () Comment: Performed By: #### [id number] #### AMRCUS RemHemo [address] [place] [address] egfr on 2019-03-25 GFR/1.73 sq M predicted >60 mL/min/{1.73_m2} Normal 03-25-2019 [facility] among non-blacks [facility] (90503) (S/P/Bld) [Vol rate/Area] Comment: Order Comment: Order Added b y Discern Expert. Performed By: #### [id number] #### MARCUS RemHemo [address] [place] [id number] GFR/1.73 sq M predicted 50 mL/min/1.73 m2 Normal 0 03-25-2019 [facility] among non-blacks [facility] (20157) (S/P/Bld) [Vol rate/Area] Comment: Order Comment: Order Added b y Discern Expert. Performed By: #### [id number] #### MARCUS RemHemo [address] [place] [address] bmp on 2019-03-25 Anion gap [Moles/Vol] 10 10-20 mEq/L Normal 03-25-20 19 [facility] () Comment: Performed By: #### [id number] #### MARCUS RemHemo [address] [place] [address] Calcium [Mass/Vol] 8.7 8.6-10.3 mg/dL Normal 03-25-2019 [facility] () Comment: Performed By: #### [id number] #### MARCUS RemHemo [address] [place] [address] Chloride [Moles/Vol] 108 98-107 mEq/L High 9 [facility] () Comment: Performed By: #### [id number] #### MARCUS RemHemo [address] [place] [address] CO2 [Moles/Vol] 25.0 21.0-32.0 mEq/L Normal 03-25-2019 [facility] () Comment: Performed By: #### [id number] #### MARCUS WilcoxHemo [address] [place] [address] Creatinine [Mass/Vol] 1.2 0.5-1.1 mg/dL High 03-25-20 [facility] () Comment: Performed By: #### [id number] #### MARCUS RemHemo [facility] [place] [address] Glucose [Mass/Vol] 97 70-99 mg/dL Normal 03-25-2019 [facility] (21818) Comment: Performed By: #### [id number] #### MARCUS RemHemo [facility] [place] [address] Potassium [Moles/Vol] 4.5 3.5-5.3 mEq/L Normal 03-25-20 [facility] () Comment: Performed By: #### [id number] #### MARCUS RemHemo [facility] [place] [address] Sodium [Moles/Vol] 138 136-145 mEq/L Normal 03-25-2019 [facility] () Comment: Performed By: #### [id number] #### MARCUS RemHemo [facility] [place] [address] Urea nitrogen [Mass/Vol] 14 6-23 mg/dL Normal 03-25 [facility] ( 000) Comment: Performed By: #### [id number] #### MARCUS RemHemo [facility] [place] [address] Urea nitrogen/Creatinine 11.7 5.4-30.0 ratio Normal 03-25 [facility] [Mass ratio] [facility] (85146) Comment: Performed By: #### [id number] #### MARCUS RemHemo [facility] [place] [address] magnesium on 6-07 Magnesium [Mass/Vol] 2.1 1.6-2.4 mg/dL Normal 9 [facility] (00 000) Comment: Performed By: #### [id number] #### MARCUS WilcoxHemo [address] [place] [address] egfr on 2019-03-24 GFR/1.73 sq M predicted 55 mL/min/1.73 m2 Normal 0 03-24-2019 [facility] among non-blacks [facility] (01215) (S/P/Bld) [Vol rate/Area] Comment: Order Comment: Order Added b y Discern Expert. Performed By: #### [id number] #### MARCUS JeriHemo [facility] [place] [address] GFR/1.73 sq M predicted >60 mL/min/{1.73_m2} Normal 03-24-2019 [facility] among non-blacks [facility] (40320) (S/P/Bld) [Vol rate/Area] Comment: Order Comment: Order Added b y Discern Expert. Performed By: #### [id number] #### MARCUS JeriHemo [facility] [place] [address] cbc w/ auto diff on 2019-03-24 Erythrocyte distribution 13.4 11.5-14.5 % Normal 03-24 [facility] width (RBC) [Ratio] Health System (01982) Comment: Performed By: #### [id number] #### MARCUS JeriHemo [facility] [place] [address] Hematocrit (Bld) [Volume 36.3 36.0-48.0 % Normal 03-24 [facility] fraction] Health Sys tem (06013) Comment: Performed By: #### [id number] #### MARCUS JeriHemo [address] [place] [address] Hemoglobin (Bld) 12.3 12.0-16.0 G/DL Normal 03-24-2019 [facility] [Mass/Vol] Health Sy stem (11813) Comment: Performed By: #### [id number] #### MARCUS JeriHemo [address] [place] [address] MCH (RBC) [Entitic mass] 30.4 27.0-31.0 pg Normal 03-24 [facility] (00 000) Comment: Performed By: #### [id number] #### MARCUS WilcoxHemo [facility] [place] [address] MCHC (RBC) [Mass/Vol] 33.7 33.0-37.0 G/DL Normal 03-24-20 [facility] (00 ) Comment: Performed By: #### [id number] #### MARCUS WilcoxHemo [facility] [place] [address] MCV (RBC) [Entitic vol] 90.1 78.0-100.0 fL Normal 03-24 [facility] (71729) Comment: Performed By: #### [id number] #### MARCUS Kenyono [facility] [place] [address] Platelet mean volume 8.3 7.4-11.0 fL Normal [facility] (Bld) [Entitic vol] System (88066) Comment: Performed By: #### [id number] #### MARCUS JeriHemo [facility] [place] [address] Platelets (Bld) [#/Vol] 101 130-400 E3/mcL Low 2018 [facility] () Comment: Performed By: #### [id number] #### MARCUS Kenyono [facility] [place] [address] RBC (Bld) [#/Vol] 4.04 3.90-5.40 E6/mcL Normal 03-24-2019 [facility] () Comment: Performed By: #### [id number] #### MARCUS WilcoxHemo [facility] [place] [address] WBC (Bld) [#/Vol] 3.9 3.6-11.0 E3/mcL Normal 03-24-2019 [facility] () Comment: Performed By: #### [id number] #### MARCUS WilcoxHemo [facility] [place] [address] bmp on 2019-03-24 Anion gap [Moles/Vol] 9 10-20 mEq/L Low 03-24-20 [facility] (96687) Comment: Performed By: #### [id number] #### MARCUS RemHemo [address] [place] [address] Calcium [Mass/Vol] 8.2 8.6-10.3 mg/dL Low 03-24-2019 [facility] (56285) Comment: Performed By: #### [id number] #### MARCUS RemHemo [address] [place] [address] Chloride [Moles/Vol] 110 98-107 mEq/L High 9 [facility] (00 000) Comment: Performed By: #### [id number] #### MARCUS RemHemo [address] [place] [address] CO2 [Moles/Vol] 23.0 21.0-32.0 mEq/L Normal 03-24-2019 [facility] (00 000) Comment: Performed By: #### [id number] #### MARCUS RemHemo [address] [place] [address] Creatinine [Mass/Vol] 1.1 0.5-1.1 mg/dL Normal 03-24-20 19 [facility] (00 000) Comment: Performed By: #### [id number] #### MARCUS RemHemo [address] [place] [address] Glucose [Mass/Vol] 92 70-99 mg/dL Normal 03-24-2019 [facility] (87981) Comment: Performed By: #### [id number] #### MARCUS RemHemo [address] [place] [address] Potassium [Moles/Vol] 4.1 3.5-5.3 mEq/L Normal 03-24-20 19 [facility] (00 000) Comment: Performed By: #### [id number] #### MARCUS RemHemo [address] [place] [address] Sodium [Moles/Vol] 138 136-145 mEq/L Normal 03-24-2019 [facility] (00 000) Comment: Performed By: #### [id number] #### MARCUS RemHemo [address] [place] [address] Urea nitrogen [Mass/Vol] 11 6-23 mg/dL Normal 03-24 [facility] (00 000) Comment: Performed By: #### [id number] #### MARCUSShawn Kenyon[address] [address] Urea nitrogen/Creatinine 10.0 5.4-30.0 ratio Normal 03-24 [facility] [Mass ratio] [facility] ([address]335) Comment: Performed By: #### [id number] #### MARCUS Jeri[address] [id number] auto diff on 03-24 Basophils (Bld) [#/Vol] 0.0 0.0-0.2 E3/mcL Normal 2018 [facility] tem (02916) Comment: Order Comment: Order Added b y Discern Expert. Performed By: #### [id number] #### MARCUS [address] [address] Basophils/100 WBC (Bld) 0.1 0.0-2.0 % Normal 2018 [facility] (00 000) Comment: Order Comment: Order Added b y Discern Expert. Performed By: #### [id number] #### [facility] Jeri[address] [address] Eos Absolute 0.1 0.0-0.7 E3/mcL Normal 03-24-2019 [facility] (07600) Comment: Order Comment: Order Added b y Discern Expert. Performed By: #### [id number] #### [facility] Kostas[address] [address] Eosinophils/100 WBC (Bld) 1.7 0.0-11.0 % Normal [facility] (00 000) Comment: Order Comment: Order Added b y Discern Expert. Performed By: #### [id number] #### [address] [address] Lymphocytes (Bld) [#/Vol] 1.3 1.2-3.4 E3/mcL Normal [facility] tem (75469) Comment: Order Comment: Order Added b y Discern Expert. Performed By: #### [id number] #### [address] [place] [address] Lymphocytes/100 WBC (Bld) 33.8 20.0-55.0 % Normal [facility] (12918) Comment: Order Comment: Order Added erma Aldana Expert. Performed By: #### [id number] #### MARCUS Kenyono [address] [place] [address] [place] Absolute 0.4 0.0-0.7 E3/mcL Normal 03-24-2019 [facility] (39619) Comment: Order Comment: Order Added erma y Discern Expert. Performed By: #### [id number] #### [facility] [address] [place] [address] Monocytes/100 WBC (Bld) 11.3 0.0-10.0 % High 2018 [facility] (00 000) Comment: Order Comment: Order Added erma Aldana Expert. Performed By: #### [id number] #### MARCUS [address] [address] Neutro Absolute 2.1 1.4-6.5 E3/mcL Normal 03-24-2019 [facility] (52701) Comment: Order Comment: Order Added erma Aldana Expert. Performed By: #### [id number] #### MARCUSShawn Kenyon[address] [address] Neutro Auto 53.1 37.0-75.0 % Normal 03-24-2019 [facility] (30312) Comment: Order Comment: Order Added erma Aldana Expert. Performed By: #### [id number] #### [facility] [address] [place] [address] zzplt morph on 2018 Platelet morphology finding NORMAL Normal [facility] (d) System (00 000) Comment: Performed By: #### [id number] #### [facility]US [facility] [address] [place] [address] Platelets (Bld) [#/Vol] DECREASED Normal 2018 [facility] (00 000) Comment: Performed By: #### [id number] #### [facility]US [facility] [address] [id number] xr shoulder complete left on 2019-03-23 XR Shoulder Exam Date/Time: Normal 03-23-2019 [facility] Complete Left 03/23/2019 01:05 EDT Health System Reason for Exam: (00 000) Fall Report STUDY: XR Shoulder Complete Left;; 03/23/2019 1:05 am INDICATION: Fall. COMPARISON: None. ACCESSION NUMBER(S): [id number] ORDERING CLINICIAN: Narcisa Lo FINDINGS: Five views [...] TSH Qn 2.75 0.30-5.60 mcIU/mL Normal 03-23-2019 [facility] (58892) Comment: Performed By: #### [id number] #### MARCUS Luong [address] [place] [address] troponin-i on 03-23 Troponin I.cardiac 0.01 0.00-0.03 ng/mL Normal 03-23-2019 [facility] [Mass/Vol] [facility] (45752) Comment: Order Comment: Order Added b y Katya Expert. Performed By: #### [id number] #### MARCUS Luong [facility] [place] [address] manual diff on 2018 Anisocytosis Ql (Bld) 1+ Normal 03-23-20 19 [facility] (03257) Comment: Order Comment: Order Added b y Discern Expert. Performed By: #### [id number] #### MARCUS Luong [facility] [id number] Basophil Man 0 0-1 % Normal 03-23-2019 [facility] (07625) Comment: Order Comment: Order Added b y Katya Expert. Performed By: #### [id number] #### MARCUS Kenyono [address] [place] [address] Eosinophils/100 WBC (Bld) 0 0-5 % Normal [facility] (08158) Comment: Order Comment: Order Added b y Discern Expert. Performed By: #### [id number] #### MARCUS Kenyono [address] [place] [address] Lymphocytes/100 WBC (Bld) 54 14-48 % High [facility] (49995) Comment: Order Comment: Order Added b y Discern Expert. Performed By: #### [id number] #### MARCUS Kenyono [address] [place] [address] Monocyte Man 4 1-11 % Normal 03-23-2019 [facility] (98572) Comment: Order Comment: Order Added b y Discern Expert. Performed By: #### [id number] #### MARCUS Kenyono [address] [place] [address] RBC morphology finding SEE MORPHOLOGY Normal [facility] tem (05293) Comment: Order Comment: Order Added b y Discern Expert. Performed By: #### [id number] #### MARCUS Kenyono [address] [place] [address] Segs Man 42 37-75 % Normal 03-23-2019 [facility] (57668) Comment: Order Comment: Order Added b y Discern Expert. Performed By: #### [id number] #### MARCUSShawn Kenyono [facility] [place] [address] magnesium on 03-23 Magnesium [Mass/Vol] 2.9 1.6-2.4 mg/dL High 9 [facility] (00 000) Comment: Performed By: #### [id number] #### MARCUSShawn Kenyono [facility] [place] [address] egfr on 2019-03-23 GFR/1.73 sq M predicted >60 mL/min/{1.73_m2} Normal 03-23-2019 [facility] among non-blacks [facility] (69759) (S/P/Bld) [Vol rate/Area] Comment: Order Comment: Order Added erma Aldana Expert. Performed By: #### [id number] #### MARCUS WilcoxHemo [address] [place] [address] GFR/1.73 sq M predicted 56 mL/min/1.73 m2 Normal 0 03-23-2019 [facility] among non-blacks [facility] (30274) (S/P/Bld) [Vol rate/Area] Comment: Order Comment: Order Added erma Aldana Expert. Performed By: #### [id number] #### MARCUS JeriHemo [facility] [place] [address] cbc w/ auto diff on 2019-03-23 Erythrocyte distribution 13.6 11.5-14.5 % Normal 03-23 [facility] width (RBC) [Ratio] Health System (66323) Comment: Performed By: #### [id number] #### [facility] [place] [address] Hematocrit (Bld) [Volume 36.9 36.0-48.0 % Normal 03-23 [facility] fraction] Health Sys tem (15241) Comment: Performed By: #### [id number] #### MARCUS WilcoxHemo [facility]5 [place] [address] Hemoglobin (Bld) 12.2 12.0-16.0 G/DL Normal 03-23-2019 [facility] [Mass/Vol] Health [facility] stem (17447) Comment: Performed By: #### [id number] #### MARCUSShawn WilcoxHemo [facility] [place] [address] MCH (RBC) [Entitic mass] 30.1 27.0-31.0 pg Normal 03-23 [facility] (00 000) Comment: Performed By: #### [id number] #### [facility] [place] [address] MCHC (RBC) [Mass/Vol] 33.1 33.0-37.0 G/DL Normal 03-23-20 19 [facility] (00 000) Comment: Performed By: #### [id number] #### [facility]US [facility] [place] [address] MCV (RBC) [Entitic vol] 91.0 78.0-100.0 fL Normal 03-23 [facility] (58490) Comment: Performed By: #### [id number] #### MARCUS JeriHemo [address] [place] [address] Platelet mean volume 8.3 7.4-11.0 fL Normal 9 [facility] (Bld) [Entitic vol] System (21335) Comment: Performed By: #### [id number] #### MARCUSShawn WilcoxHemo [facility] [place] [address] Platelets (Bld) [#/Vol] 97 130-400 E3/mcL Low 2018 [facility] (00 000) Comment: Performed By: #### [id number] #### MARCUS JeriHemo [facility] [place] [address] RBC (Bld) [#/Vol] 4.05 3.90-5.40 E6/mcL Normal 03-23-2019 [facility] (00 000) Comment: Performed By: #### [id number] #### MARCUSShawn WilcoxHemo [facility] [place] [address] WBC (Bld) [#/Vol] 3.0 3.6-11.0 E3/mcL Low 03-23-2019 [facility] (68536) Comment: Performed By: #### [id number] #### MARCUS JeriHemo [address] [place] [address] bmp on 2019-03-23 Anion gap [Moles/Vol] 8 10-20 mEq/L Low 03-23-20 19 [facility] (88510) Comment: Performed By: #### [id number] #### MACRUS RemHemo [address] [place] [address] Calcium [Mass/Vol] 7.8 8.6-10.3 mg/dL Low 03-23-2019 [facility] (39281) Comment: Performed By: #### [id number] #### MARCUS RemHemo [address] [place] [address] Chloride [Moles/Vol] 111 98-107 mEq/L High 9 [facility] () Comment: Performed By: #### [id number] #### MARCUS RemHemo [address] [place] [address] CO2 [Moles/Vol] 22.0 21.0-32.0 mEq/L Normal 03-23-2019 [facility] (00 ) Comment: Performed By: #### [id number] #### MARCUS RemHemo [address] [place] [address] Creatinine [Mass/Vol] 1.1 0.5-1.1 mg/dL Normal 03-23-20 [facility] (00 000) Comment: Performed By: #### [id number] #### MARCUS RemHemo [facility] [place] [address] Glucose [Mass/Vol] 102 70-99 mg/dL High 03-23-2019 [facility] (24243) Comment: Performed By: #### [id number] #### MARCUS RemHemo [address] [place] [address] Potassium [Moles/Vol] 3.5 3.5-5.3 mEq/L Normal 03-23-20 19 [facility] (00 000) Comment: Performed By: #### [id number] #### MARCUS WilcoxHemo [facility] [place] [address] Sodium [Moles/Vol] 138 136-145 mEq/L Normal 03-23-2019 [facility] (00 000) Comment: Performed By: #### [id number] #### MARCUS RemHemo [address] [place] [address] Urea nitrogen [Mass/Vol] 9 6-23 mg/dL Normal 03-23 [facility] (00 000) Comment: Performed By: #### [id number] #### MARCUS RemHemo [address] [place] [address] Urea nitrogen/Creatinine 8.2 5.4-30.0 ratio Normal 03-23 [facility] [Mass ratio] [facility] (14335) Comment: Performed By: #### [id number] #### MARCUS RemHemo [address] [place] [address] .manual abs on 2019 -06-06 Basophil Abs Man 0.0 0.0-0.2 10x3/ Normal 03-23-2019 [facility] (80323) Comment: Order Comment: Order Added b y Discern Expert. Performed By: #### [id number] #### MARCUS WilcoxHemo [address] [place] [address] Eos Abs Man 0.0 0.0-0.5 10x3/ Normal 03-23-2019 [facility] (02913) Comment: Order Comment: Order Added b y Discern Expert. Performed By: #### [id number] #### MARCUS RemHemo [address] [place] [address] Lymph Abs Man 1.6 1.2-3.4 10x3/ Normal 03-23-2019 [facility] (40375) Comment: Order Comment: Order Added b y Discern Expert. Performed By: #### [id number] #### MARCUS JeriHemo [address] [place] [address] [place] Abs Man 0.1 0.0-0.7 10x3/ Normal 03-23-2019 [facility] (70698) Comment: Order Comment: Order Added b y Discern Expert. Performed By: #### [id number] #### MARCUS WilcoxHemo [address] [place] [address] Segs Abs Man 1.3 1.4-6.5 10x3/ Low 03-23-2019 [facility] (93411) Comment: Order Comment: Order Added b y Discern Expert. Performed By: #### [id number] #### MARCUSShawn WilcoxHemo [facility] [place] [address] xr chest ap portable on 2019-03-22 XR Chest AP Exam Date/Time: Normal 03-22-2019 [facility] Portable 03/22/2019 20:26 EDT H ealt System Reason for Exam: (00 000) Chest pain Report STUDY: XR Chest AP Portable; 03/22/2019 8:26 pm INDICATION: Chest pain. COMPARISON: 12/21/2018 ACCESSION NUMBER(S): [id number] ORDERING CLINICIAN: Xuan Garcia FINDINGS: Single portable [...] pm Signed by: Lacy Alvarez MD Technologist: [facility] troponin-i on 03-22 Troponin I.cardiac 0.01 0.00-0.03 ng/mL Normal 03-22-2019 [facility] [Mass/Vol] [facility] (15398) Comment: Performed By: #### [id number] #### MARCUS WilcoxHemo [facility] [id number] magnesium on 03-22 Magnesium [Mass/Vol] 1.6 1.6-2.4 mg/dL Normal 9 [facility] (00 000) Comment: Performed By: #### [id number] #### MARCUS RemHemo [address] [place] [address] egfr on 2019-03-22 GFR/1.73 sq M predicted >60 mL/min/{1.73_m2} Normal 03-22-2019 [facility] among non-blacks [facility] (15810) (S/P/Bld) [Vol rate/Area] Comment: Order Comment: Order Added b y Discern Expert. Performed By: #### [id number] #### MARCUS RemHemo [address] [place] [address] GFR/1.73 sq M predicted 52 mL/min/1.73 m2 Normal 0 03-22-2019 [facility] among non-blacks [facility] (65158) (S/P/Bld) [Vol rate/Area] Comment: Order Comment: Order Added b y Discern Expert. Performed By: #### [id number] #### MARCUS RemHemo [address] [place] [address] cbc w/ auto diff on 2019-03-22 Erythrocyte distribution 13.5 11.5-14.5 % Normal 03-22 [facility] width (RBC) [Ratio] Health System (64494) Comment: Performed By: #### [id number] #### MARCUSShawn WilcoxHemo [facility] [place] [address] Hematocrit (Bld) [Volume 37.5 36.0-48.0 % Normal 03-22 [facility] tem (62184) Comment: Performed By: #### [id number] #### MARCUSShawn WilcoxHemo [address] [place] [address] Hemoglobin (Bld) 12.8 12.0-16.0 G/DL Normal 03-22-2019 [facility] [Mass/Vol] Health [facility] stem (54816) Comment: Performed By: #### [id number] #### [facility]US [facility] [address] [place] [address] MCH (RBC) [Entitic mass] 30.9 27.0-31.0 pg Normal 03-22 [facility] (00 000) Comment: Performed By: #### [id number] #### [facility] [address] MCHC (RBC) [Mass/Vol] 34.1 33.0-37.0 G/DL Normal 03-22-20 19 [facility] (00 000) Comment: Performed By: #### [id number] #### MARCUS [facility] [address] [place] [address] MCV (RBC) [Entitic vol] 90.6 78.0-100.0 fL Normal 03-22 [facility] (83099) Comment: Performed By: #### [id number] #### MARCUS [facility] [address] [place] [address] Platelet mean volume 8.3 7.4-11.0 fL Normal 9 [facility] (Bld) [Entitic vol] System (70735) Comment: Performed By: #### [id number] #### [facility] [address] [place] [address] Platelets (Bld) [#/Vol] 113 130-400 E3/mcL Low 2018 [facility] (00 000) Comment: Performed By: #### [id number] #### MARCUS WilcoxHemo [address] [place] [address] RBC (Bld) [#/Vol] 4.14 3.90-5.40 E6/mcL Normal 03-22-2019 [facility] () Comment: Performed By: #### [id number] #### MARCUS WilcoxHemo [address] [place] [address] WBC (Bld) [#/Vol] 4.1 3.6-11.0 E3/mcL Normal 03-22-2019 [facility] () Comment: Performed By: #### [id number] #### MARCUS JeriHemo [facility] [place] [address] bmp on 2019-03-22 Anion gap [Moles/Vol] 13 10-20 mEq/L Normal 03-22-20 [facility] () Comment: Performed By: #### [id number] #### MARCUS JeriHemo [facility] [place] [address] Calcium [Mass/Vol] 8.4 8.6-10.3 mg/dL Low 03-22-2019 [facility] (48725) Comment: Performed By: #### [id number] #### MARCUS JeriHemo [facility] [place] [address] Chloride [Moles/Vol] 110 98-107 mEq/L High 9 [facility] () Comment: Performed By: #### [id number] #### MARCUS JeriHemo [address] [place] [address] CO2 [Moles/Vol] 21.0 21.0-32.0 mEq/L Normal 03-22-2019 [facility] () Comment: Performed By: #### [id number] #### MARCUS JeriHemo [address] [place] [address] Creatinine [Mass/Vol] 1.1 0.5-1.1 mg/dL Normal 03-22-20 [facility] (00 000) Comment: Performed By: #### [id number] #### MARCUS RemHemo [address] [place] [address] Glucose [Mass/Vol] 95 70-99 mg/dL Normal 03-22-2019 [facility] (32210) Comment: Performed By: #### [id number] #### MARCUS Kenyon[address] [address] Potassium [Moles/Vol] 4.0 3.5-5.3 mEq/L Normal 03-22-20 19 [facility] (00 000) Comment: Performed By: #### [id number] #### MARCUS Kenyon[address] [address] Sodium [Moles/Vol] 139 136-145 mEq/L Normal 03-22-2019 [facility] (00 000) Comment: Performed By: #### [id number] #### MARCUS Kenyon[address] [address] Urea nitrogen [Mass/Vol] 10 6-23 mg/dL Normal 03-22 [facility] (00 000) Comment: Performed By: #### [id number] #### MARCUS Kenyon[address] [address] Urea nitrogen/Creatinine 9.1 5.4-30.0 ratio Normal 03-22 [facility] [Mass ratio] [facility] (74646) Comment: Performed By: #### [id number] #### MARCUS Kenyon[address] [address] auto diff on 2019-0 6-05 Basophils (Bld) [#/Vol] 0.0 0.0-0.2 E3/mcL Normal 2018 [facility] (53549) Comment: Order Comment: Order Added b y Discern Expert. Performed By: #### [id number] #### MARCUS Kenyono [address] [place] [address] Basophils/100 WBC (Bld) 0.4 0.0-2.0 % Normal 2018 [facility] (00 000) Comment: Order Comment: Order Added b y Discern Expert. Performed By: #### [id number] #### MARCUS Kenyon[address] [address] Eos Absolute 0.1 0.0-0.7 E3/mcL Normal 03-22-2019 [facility] (59574) Comment: Order Comment: Order Added b y Discern Expert. Performed By: #### [id number] #### MARCUS WilcoxHemo [address] [place] [address] Eosinophils/100 WBC (Bld) 2.0 0.0-11.0 % Normal [facility] (00 000) Comment: Order Comment: Order Added b y Discern Expert. Performed By: #### [id number] #### MARCUS WilcoxHemo [address] [place] [address] Lymphocytes (Bld) [#/Vol] 1.1 1.2-3.4 E3/mcL Low [facility] (00 000) Comment: Order Comment: Order Added b y Discern Expert. Performed By: #### [id number] #### MARCUS Kenyono [address] [place] [address] Lymphocytes/100 WBC (Bld) 27.1 20.0-55.0 % Normal [facility] (65409) Comment: Order Comment: Order Added b y Discern Expert. Performed By: #### [id number] #### MARCUS WilcoxHemo [address] [place] [address] [place] Absolute 0.5 0.0-0.7 E3/mcL Normal 03-22-2019 [facility] (08765) Comment: Order Comment: Order Added b y Discern Expert. Performed By: #### [id number] #### MARCUS WilcoxHemo [address] [place] [address] Monocytes/100 WBC (Bld) 11.0 0.0-10.0 % High 2018 [facility] (00 000) Comment: Order Comment: Order Added b y Discern Expert. Performed By: #### [id number] #### MARCUS WilcoxHemo [address] [place] [address] Neutro Absolute 2.5 1.4-6.5 E3/mcL Normal 03-22-2019 [facility] (17283) Comment: Order Comment: Order Added b y Discern Expert. Performed By: #### [id number] #### MARCUS Kenyono [address] [place] [address] Neutro Auto 59.5 37.0-75.0 % Normal 03-22-2019 [facility] (70356) Comment: Order Comment: Order Added erma lizama Discern Expert. Performed By: #### [id number] #### MARCUS Kenyoncorky [address] [place] [address] ua complete on 2018 Color (U) Yellow Yellow Normal 03-19-2019 [facility] (24252) Comment: Order Comment: Order Added b y Discern Expert. Performed By: #### [id number] #### MARCUS Kenyoncorky [address] [place] [address] Glucose (U) [Mass/Vol] Negative Negative mg/dL Normal [address] [place], [place] [address]s tem (90952) Comment: Order Comment: Order Added erma lizama Discern Expert. Performed By: #### [id number] #### MARCUS Kenyoncorky [address] [place] [address] Ketones Ql (U) Negative Negative Normal 03-19-2019 [facility] (70144) Comment: Order Comment: Order Added erma lizama Discern Expert. Performed By: #### [id number] #### MARCUS Kenyoncorky [address] [place] [address] RBC (U) [#/Vol] 0-3 0-3 Normal 03-19-2019 [facility] (10824) Comment: Order Comment: Order Added b y Discern Expert. Performed By: #### [id number] #### MARCUS Kenyono [address] [place] [address] UA Blood Negative Negative Normal 03-19-2019 [facility] (16859) Comment: Order Comment: Order Added b y Discern Expert. Performed By: #### [id number] #### MARCUS Kenyono [address] [place] [address] UA Clarity SltCloudy Clear Abnormal 03-19-2019 [facility] (52537) Comment: Order Comment: Order Added b y Discern Expert. Performed By: #### [id number] #### MARCUS JeriHemo [facility] [place] [address] UA Hyal Cast 3-5 0-2 Abnormal 03-19-2019 [facility] (08768) Comment: Order Comment: Order Added erma Aldana Expert. Performed By: #### [id number] #### MARCUSShawn Luong [address] [place] [address] UA Leuk Est 1+ Negative Abnormal 03-19-2019 [facility] (36084) Comment: Order Comment: Order Added erma Aldana Expert. Performed By: #### [id number] #### MARCUSShawn Luong [address] [place] [address] UA Mucous Trace Trace Abnormal 03-19-2019 [facility] (61818) Comment: Order Comment: Order Added erma Aldana Expert. Performed By: #### [id number] #### MARCUS Luong [address] [place] [address] UA Nitrite Negative Negative Normal 03-19-2019 [facility] (04296) Comment: Order Comment: Order Added erma Aldana Expert. Performed By: #### [id number] #### MARCUSShawn Luong [address] [place] [address] UA pH 5.0 4.6-8.0 Normal 03-19-2019 [facility] (19338) Comment: Order Comment: Order Added erma Aldana Expert. Performed By: #### [id number] #### MARCUSShawn Luong [address] [place] [address] UA Protein Negative Negative Normal 03-19-2019 [facility] (96837) Comment: Order Comment: Order Added erma Aldana Expert. Performed By: #### [id number] #### MARCUSShawn Luong [address] [place] [address] UA Spec Grav 1.010 1.003-1.030 Normal 03-19-2019 [facility] (04235) Comment: Order Comment: Order Added erma Aldana Expert. Performed By: #### [id number] #### MARCUSShawn Luong [address] [place], [place] [address] UA Squam Epithelial 10-20 0-5 Abnormal 03-19-2019 [facility] (10910) Comment: Order Comment: Order Added erma Aldana Expert. Performed By: #### [id number] #### MARCUS Luong [address] [place] [address] UA Urobilinogen Negative Normal 03-19-2019 [facility] (42731) Comment: Order Comment: Order Added erma Aldana [...] laboratory within 24 hours. Performed By: #### [id number] #### MARCUS JeriHemo [address] [place] [address] UA WBC 0-5 0-5 Normal 03-19-2019 [facility] (49523) Comment: Order Comment: Order Added erma Aldana Expert. Performed By: #### [id number] #### MARCUS JeriKarlo [facility] [place] [address] Urobilinogen Qn (U) Negative Negative Normal 03-19-2019 [facility] (00 000) Comment: Order Comment: Order Added erma Aldana Expert. Performed By: #### [id number] #### MARCUS JeriHemo [facility] [place] [address] ionized calcium poc order on 2019-03-18 Ionized Calcium POC Order Collected Normal [facility] (00 000) Comment: Performed By: #### [id number] #### MARCUS JeriHemo [facility] [place] [address] ionized calcium lvl on 2019-03-18 Ionized Ca. 4.5 4.5-5.6 mg/dL Normal 03-18-2019 [facility] (71788) Comment: Performed By: #### [id number] #### MARCUS JeriHemo [facility] [place] [address] egfr on 2019-03-18 GFR/1.73 sq M predicted 56 mL/min/1.73 m2 Normal 0 03-18-2019 [facility] among non-blacks [facility] (28939) (S/P/Bld) [Vol rate/Area] Comment: Order Comment: Order Added erma Aldana Expert. Performed By: #### [id number] #### MARCUS RemHemo [address] [place] [address] GFR/1.73 sq M predicted 46 mL/min/1.73 m2 Normal 0 03-18-2019 [facility] among non-blacks [facility] (16919) (S/P/Bld) [Vol rate/Area] Comment: Order Comment: Order Added b y Discern Expert. Performed By: #### [id number] #### MARCUS RemHemo [address] [place] [address] ct head or brain w/o contrast on 2019-03-18 CT Head or Brain Exam Date/Time: Normal 019 [facility] w/o Contrast 03/18/2019 21:34 EDT Health System Reason for Exam: (00 000) Altered mental status Report STUDY: CT Head or Brain w/o Contrast; 03/18/2019 9:34 pm INDICATION: Altered mental status. COMPARISON: 03/16/2019 ACCESSION NUMBER(S): [id number] ORDERING CLINICIAN: Ac Gao TECHNIQUE: Noncontrast CT [...] Erythrocyte distribution 14.1 11.5-14.5 % Normal 03-18 [facility] width (RBC) [Ratio] Health System (02284) Comment: Performed By: #### [id number] #### MARCUS Kenyono [facility] [place] [address] Hematocrit (Bld) [Volume 40.4 36.0-48.0 % Normal 03-18 [facility] Sys tem (43223) Comment: Performed By: #### [id number] #### MARCUS WilcoxHemo [facility] [place] [address] Hemoglobin (Bld) 13.4 12.0-16.0 G/DL Normal 03-18-2019 [facility] [Mass/Vol] Health Sy stem (62481) Comment: Performed By: #### [id number] #### MARCUS WilcoxHemo [facility] [place] [address] MCH (RBC) [Entitic mass] 30.2 27.0-31.0 pg Normal 03-18 [facility] (00 000) Comment: Performed By: #### [id number] #### MARCUSShawn WilcoxHemo [address] [place] [address] MCHC (RBC) [Mass/Vol] 33.1 33.0-37.0 G/DL Normal 03-18-20 19 [facility] (00 000) Comment: Performed By: #### [id number] #### MARCUSShawn WilcoxHemo [address] [place] [address] MCV (RBC) [Entitic vol] 91.3 78.0-100.0 fL Normal 03-18 [facility] tem (43553) Comment: Performed By: #### [id number] #### MARCUSShawn WilcoxHemo [address] [place] [address] Platelet mean volume 8.0 7.4-11.0 fL Normal 9 [facility] (Bld) [Entitic vol] System (36548) Comment: Performed By: #### [id number] #### MARCUSShawn WilcoxHemo [facility] [place] [address] Platelets (Bld) [#/Vol] 123 130-400 E3/mcL Low 2018 [facility] (00 000) Comment: Performed By: #### [id number] #### [facility] [place] [address] RBC (Bld) [#/Vol] 4.43 3.90-5.40 E6/mcL Normal 03-18-2019 [facility] () Comment: Performed By: #### [id number] #### MARCUS JeriHemo [address] [place] [address] WBC (Bld) [#/Vol] 4.3 3.6-11.0 E3/mcL Normal 03-18-2019 [facility] () Comment: Performed By: #### [id number] #### MARCUS RemHemo [address] [place] [address] bmp on 2019-03-18 Anion gap [Moles/Vol] 11 10-20 mEq/L Normal 03-18-20 [facility] () Comment: Performed By: #### [id number] #### MARCUS JeriHemo [facility] [place] [address] Calcium [Mass/Vol] 8.8 8.6-10.3 mg/dL Normal 03-18-2019 [facility] () Comment: Performed By: #### [id number] #### MRACUS RemHemo [address] [place] [address] Chloride [Moles/Vol] 110 98-107 mEq/L High [facility] () Comment: Performed By: #### [id number] #### MARCUS JeriHemo [address] [place] [address] CO2 [Moles/Vol] 20.0 21.0-32.0 mEq/L Low 03-18-2019 [facility] (93473) Comment: Performed By: #### [id number] #### MARCUS RemHemo [address] [place] [address] Creatinine [Mass/Vol] 1.2 0.5-1.1 mg/dL High 03-18-20 [facility] ( 000) Comment: Performed By: #### [id number] #### MARCUS RemHemo [address] [place] [address] Glucose [Mass/Vol] 90 70-99 mg/dL Normal 03-18-2019 [facility] (63703) Comment: Performed By: #### [id number] #### MARCUS Kenyono [facility] [place] [address] Potassium [Moles/Vol] 4.0 3.5-5.3 mEq/L Normal 03-18-20 19 [facility] (00 000) Comment: Performed By: #### [id number] #### MARCUSShawn Kenyono [facility] [place] [address] Sodium [Moles/Vol] 137 136-145 mEq/L Normal 03-18-2019 [facility] (00 000) Comment: Performed By: #### [id number] #### MARCUSShawn Kenyono [address] [place] [address] Urea nitrogen [Mass/Vol] 9 6-23 mg/dL Normal 03-18 [facility] (00 000) Comment: Performed By: #### [id number] #### MARCUSShawn Wilcox[address] [address] Urea nitrogen/Creatinine 7.5 5.4-30.0 ratio Normal 03-18 [facility] [Mass ratio] [facility] (54867) Comment: Performed By: #### [id number] #### MARCUSShawn Kenyon[address] [address] auto diff on 6- Basophils (Bld) [#/Vol] 0.0 0.0-0.2 E3/mcL Normal 2018 [facility] tem (55859) Comment: Order Comment: Order Added b y Discern Expert. Performed By: #### [id number] #### MARCUSShawn Kenyono [address] [place] [address] Basophils/100 WBC (Bld) 0.5 0.0-2.0 % Normal 2018 [facility] (00 000) Comment: Order Comment: Order Added b y Discern Expert. Performed By: #### [id number] #### MARCUS Kenyono [facility]5 [place] [address] Eos Absolute 0.1 0.0-0.7 E3/mcL Normal 03-18-2019 [facility] (19655) Comment: Order Comment: Order Added b y Discern Expert. Performed By: #### [id number] #### MARCUS WilcoxHemo [address] [place] [address] Eosinophils/100 WBC (Bld) 2.2 0.0-11.0 % Normal [facility] (00 000) Comment: Order Comment: Order Added b y Discern Expert. Performed By: #### [id number] #### MARCUS WilcoxHemo [facility] [place] [address] Lymphocytes (Bld) [#/Vol] 1.3 1.2-3.4 E3/mcL Normal [facility] tem (19452) Comment: Order Comment: Order Added b y Discern Expert. Performed By: #### [id number] #### MARCUS WilcoxHemo [address] [place] [address] Lymphocytes/100 WBC (Bld) 30.1 20.0-55.0 % Normal [facility] tem (03483) Comment: Order Comment: Order Added b y Discern Expert. Performed By: #### [id number] #### MARCUS RemHemo [address] [place] [address] [place] Absolute 0.4 0.0-0.7 E3/mcL Normal 03-18-2019 [facility] (86803) Comment: Order Comment: Order Added b y Discern Expert. Performed By: #### [id number] #### MARCUS WilcoxHemo [address] [place] [address] Monocytes/100 WBC (Bld) 9.9 0.0-10.0 % Normal 2018 [facility] (00 000) Comment: Order Comment: Order Added b y Discern Expert. Performed By: #### [id number] #### MARCUS RemHemo [address] [place] [address] Neutro Absolute 2.5 1.4-6.5 E3/mcL Normal 03-18-2019 [facility] (11464) Comment: Order Comment: Order Added b y Discern Expert. Performed By: #### [id number] #### [facility] RemHemo [address] [place] [address] Neutro Auto 57.3 37.0-75.0 % Normal 03-18-2019 [facility] (18583) Comment: Order Comment: Order Added erma Aldana Expert. Performed By: #### [id number] #### MARCUS WilcoxMyCoopo [address] [place], [place] [address] lactic acid on 2018 Lactate [Moles/Vol] 1.2 0.4-2.0 mmol/L Normal 03-16-2019 [facility] (00 000) Comment: Performed By: #### [id number] #### [place]ARCUS [place] [id number] egfr on 2019-03-16 GFR/1.73 sq M predicted 58 mL/min/1.73 m2 Normal 0 03-16-2019 [facility] non-blacks [facility] (11105) (S/P/Bld) [Vol rate/Area] Comment: Order Comment: Order Added erma y Katya Expert. Performed By: #### [id number] #### [place] [address] GFR/1.73 sq M predicted 48 mL/min/1.73 m2 Normal 0 03-16-2019 [facility] non-[facility] (10513) (S/P/Bld) [Vol rate/Area] Comment: Order Comment: Order Added erma Aldana Expert. Performed By: #### [id number] #### [place] [address] ct spine cervical w/o contrast on 2019-03-16 CT Spine Exam Date/Time: Normal 03-16-2019 [facility] Cervical w/o 03/16/2019 00:08 EDT [facility] Contrast Reason for Exam: Sys tem (20583) Trauma Report STUDY: CT Spine Cervical w/o Contrast; 03/16/2019 12:46 am INDICATION: Trauma. COMPARISON: None. ACCESSION NUMBER(S): [id number] ORDERING CLINICIAN: Caren Lozano TECHNIQUE: Axial noncontrast [...] CT Head or Brain Exam Date/Time: Normal [address] [place] [address] w/o Contrast 03/16/2019 00:08 [facility] Reason for Exam: (00 000) Injury Report STUDY: CT Head or Brain w/o Contrast; 03/16/2019 12:46 am INDICATION: Injury. COMPARISON: 12/01/2018 ACCESSION NUMBER(S): [id number] ORDERING CLINICIAN: Caren Lozano TECHNIQUE: Noncontrast CT [...] Albumin [Mass/Vol] 4.2 3.4-5.0 gm/dL Normal 03-16-2019 [facility] (00 000) Comment: Performed By: #### [id number] #### MARCUS RemHemo [address] [place] [address] Albumin/Globulin [Mass 1.7 1.1-1.9 ratio Normal 019 [facility] (58249) Comment: Performed By: #### [id number] #### MARCUS RemHemo [address] [place] [address] Alk Phos 104 33-110 Int._Unit/L Normal 03-16-2019 [facility] (13155) Comment: Performed By: #### [id number] #### MARCUS RemHemo [address] [place] [address] ALT [Catalytic 31 7-45 Int._Unit/L Normal 03-16-2019 [facility] (50679) Comment: Performed By: #### [id number] #### MARCUS RemHemo [address] [place] [address] Anion gap [Moles/Vol] 12 10-20 mEq/L Normal 03-16-20 19 [facility] (00 000) Comment: Performed By: #### [id number] #### MARCUS RemHemo [address] [place] [address] AST [Catalytic 37 9-39 Int._Unit/L Normal 03-16-2019 [facility] (45668) Comment: Performed By: #### [id number] #### MARCUS RemHemo [address] [place] [address] Bili Total 0.79 0.00-1.20 mg/dL Normal 03-16-2019 [facility] (44361) Comment: Performed By: #### [id number] #### MARCUS RemHemo [address] [place] [address] Calcium [Mass/Vol] 8.8 8.6-10.3 mg/dL Normal 03-16-2019 [facility] (00 000) Comment: Performed By: #### [id number] #### MARCUS RemHemo [address] [place] [address] Chloride [Moles/Vol] 110 98-107 mEq/L High 9 [facility] (00 000) Comment: Performed By: #### [id number] #### MARCUS WilcoxHemo [address] [place] [address] CO2 [Moles/Vol] 20.0 21.0-32.0 mEq/L Low 03-16-2019 [facility] (39267) Comment: Performed By: #### [id number] #### MARCUS WilcoxHemo [address] [place] [address] Creatinine [Mass/Vol] 1.2 0.5-1.1 mg/dL High 03-16-20 [facility] ( 000) Comment: Performed By: #### [id number] #### MARCUS RemHemo [facility] [place] [address] Globulin (S) [Mass/Vol] 3.0 2.0-4.0 G/DL Normal 2018 [facility] () Comment: Performed By: #### [id number] #### MARCUS WilcoxHemo [facility] [place] [address] Glucose [Mass/Vol] 114 70-99 mg/dL High 03-16-2019 [facility] (59600) Comment: Performed By: #### [id number] #### MARCUS WilcoxHemo [facility] [place] [address] Potassium [Moles/Vol] 3.4 3.5-5.3 mEq/L Low 03-16-20 [facility] ( 000) Comment: Performed By: #### [id number] #### MARCUS WilcoxHemo [facility] [place] [address] Protein [Mass/Vol] 6.7 6.4-8.2 gm/dL Normal 03-16-2019 [facility] ( 000) Comment: Performed By: #### [id number] #### MARCUS RemHemo [address] [place] [address] Sodium [Moles/Vol] 139 136-145 mEq/L Normal 03-16-2019 [facility] ( 000) Comment: Performed By: #### [id number] #### MARCUS RemHemo [facility] [place] [address] Urea nitrogen [Mass/Vol] 9 6-23 mg/dL Normal 03-16 [facility] (00 000) Comment: Performed By: #### [id number] #### MARCUS WilcoxHemo [facility] [place] [address] Urea nitrogen/Creatinine 7.5 5.4-30.0 ratio Normal 03-16 [facility] [Mass ratio] Health System (13568) Comment: Performed By: #### [id number] #### MARCUS WilcoxHemo [facility] [place] [address] cbc w/ auto diff on 2019-03-16 Erythrocyte distribution 13.9 11.5-14.5 % Normal 03-16 [facility] width (RBC) [Ratio] Health System (15887) Comment: Performed By: #### [id number] #### MARCUS JeriHemo [address] [place] [address] Hematocrit (Bld) [Volume 40.6 36.0-48.0 % Normal 03-16 [facility]] Health Sys tem (47852) Comment: Performed By: #### [id number] #### MARCUS JeriHemo [address] [place] [address] Hemoglobin (Bld) 13.5 12.0-16.0 G/DL Normal 03-16-2019 [facility] [Mass/Vol] Health Sy stem (03519) Comment: Performed By: #### [id number] #### MARCUS WilcoxHemo [facility] [place] [address] MCH (RBC) [Entitic mass] 30.4 27.0-31.0 pg Normal 03-16 [facility] (00 000) Comment: Performed By: #### [id number] #### MARCUS RemHemo [facility] [place] [address] MCHC (RBC) [Mass/Vol] 33.3 33.0-37.0 G/DL Normal 03-16-20 19 [facility] (00 000) Comment: Performed By: #### [id number] #### MARCUSShawn WilcoxHemo [facility] [place] [address] MCV (RBC) [Entitic vol] 91.4 78.0-100.0 fL Normal 03-16 [facility] tem (52390) Comment: Performed By: #### [id number] #### MARCUS Kenyono [facility] [place] [address] Platelet mean volume 8.3 7.4-11.0 fL Normal 9 [facility] (Bld) [Entitic vol] System (34303) Comment: Performed By: #### [id number] #### MARCUS Kenyono [address] [place] [address] Platelets (Bld) [#/Vol] 118 130-400 E3/mcL Low 2018 [facility] ( 000) Comment: Performed By: #### [id number] #### MARCUS Kenyono [address] [place] [address] RBC (Bld) [#/Vol] 4.45 3.90-5.40 E6/mcL Normal 03-16-2019 [facility] () Comment: Performed By: #### [id number] #### MARCUSShawn Wilcox[address] [address] WBC (Bld) [#/Vol] 4.4 3.6-11.0 E3/mcL Normal 03-16-2019 [facility] () Comment: Performed By: #### [id number] #### MARCUS Kenyon[address] [address] auto diff on 2019-0 5-30 Basophils (Bld) [#/Vol] 0.0 0.0-0.2 E3/mcL Normal 2018 [facility] tem (67939) Comment: Order Comment: Order Added b y Discern Expert. Performed By: #### [id number] #### MARCUS WilcoxHemo [facility] [place] [address] Basophils/100 WBC (Bld) 0.9 0.0-2.0 % Normal 2018 [facility] (00 000) Comment: Order Comment: Order Added b y Discern Expert. Performed By: #### [id number] #### MARCUS WilcoxHemo [address] [place] [address] Eos Absolute 0.1 0.0-0.7 E3/mcL Normal 03-16-2019 [facility] (19455) Comment: Order Comment: Order Added b y Discern Expert. Performed By: #### [id number] #### MARCUS WilcoxHemo [address] [place] [address] Eosinophils/100 WBC (Bld) 2.6 0.0-11.0 % Normal 02-17 [facility] (00 000) Comment: Order Comment: Order Added b y Discern Expert. Performed By: #### [id number] #### MARCUS RemHemo [address] [place] [address] Lymphocytes (Bld) [#/Vol] 1.0 1.2-3.4 E3/mcL Low 02-17 [facility] (00 000) Comment: Order Comment: Order Added b y Discern Expert. Performed By: #### [id number] #### MARCUS WilcoxHemo [address] [place] [address] Lymphocytes/100 WBC (Bld) 23.0 20.0-55.0 % Normal 02-17 [facility] tem (88764) Comment: Order Comment: Order Added b y Discern Expert. Performed By: #### [id number] #### MARCUS WilcoxHemo [address] [place] [address] [place] Absolute 0.3 0.0-0.7 E3/mcL Normal 03-16-2019 [facility] (92040) Comment: Order Comment: Order Added b y Discern Expert. Performed By: #### [id number] #### MARCUS WilcoxHemo [address] [place] [address] Monocytes/100 WBC (Bld) 6.8 0.0-10.0 % Normal 2018 [facility] (00 000) Comment: Order Comment: Order Added b y Discern Expert. Performed By: #### [id number] #### MARCUS WilcoxHemo [address] [place] [address] Neutro Absolute 2.9 1.4-6.5 E3/mcL Normal 03-16-2019 [facility] (00735) Comment: Order Comment: Order Added b y Discern Expert. Performed By: #### [id number] #### MARCUS RemHemo [address] [place] [address] Neutro Auto 66.7 37.0-75.0 % Normal 03-16-2019 [facility] (10443) Comment: Order Comment: Order Added erma Aldana Expert. Performed By: #### [id number] #### MARCUS RemHemo [address] [place] [address] No panel information on 2019-03-16 Aleksey Longoria MD 03-16-2019 [facility] 03/16/2019 4:19 PM ( 78042) [facility] EEG Report Reason for EEG: Seizures. [...] conc 84 65 - 99 mg/dL 03-16-2019 [facility] (80674) Interpretation and Normal 03-16-2019 [facility] review of (00929) laboratory results Interpretation and Abnormal 03-16-2019 [facility] review of (55761) laboratory results Valproate mass conc <3 OTH - ug/mL Low 03-16-2019 [facility] OTH (16672) Cobalamin (Vitamin 354 193 - pg/mL 03-16-2019 [facility] B12) mass conc 986 (4321 5) Folate mass conc 6.9 3.1 - ng/mL [facility] (43249[facility] Comment: Deficient <2.2 Borderline 2.2 - 3.0 Excessive >17.5 Interpretation and Normal 03-16-2019 [facility] review of laboratory (82232) results Interpretation and Normal 03-16-2019 [facility] review of laboratory (29210) results Thyrotropin Qn 2.12 OTH - OTH m[IU]/L 03-16-2019 [facility] (23623) This order has 03-16-2019 [facility] been (36135) auto-finalized and does not contain a result. This order has 03-16-2019 [facility] (43416) auto-finalized and does not contain a result. ua complete on 2018 Color (U) Yellow Normal 03-11-2019 [facility] (98522) Comment: Performed By: #### [id number] #### MARCUS RemHemo [address] [place] [address] Glucose (U) [Mass/Vol] Negative Negative mg/dL Normal 019 [facility] tem (09585) Comment: Performed By: #### [id number] #### MARCUS RemHemo [address] [place] [address] Ketones Ql (U) Negative Negative Normal 03-11-2019 [facility] (12152) Comment: Performed By: #### [id number] #### MARCUS RemHemo [address] [place] [address] RBC (U) [#/Vol] 0-3 0-3 Normal 03-11-2019 [facility] (54131) Comment: Performed By: #### [id number] #### MARCUS RemHemo [address] [place] [address] UA Blood Negative Negative Normal 03-11-2019 [facility] (24759) Comment: Performed By: #### [id number] #### MARCUS RemHemo [address] [place] [address] UA Bacteria Trace None Abnormal 03-11-2019 [facility] (98934) Comment: Performed By: #### [id number] #### MARCUS RemHemo [facility] [place] [address] UA Clarity Clear Clear Normal 03-11-2019 [facility] (74708) Comment: Performed By: #### [id number] #### MARCUS RemHemo [address] [place] [address] UA Leuk Est Negative Negative Normal 03-11-2019 [facility] (04331) Comment: Performed By: #### [id number] #### MARCUS RemHemo [address] [place] [address] UA Mucous Trace Trace Abnormal 03-11-2019 [facility] (47401) Comment: Performed By: #### [id number] #### MARCUS WilcoxHemo [address] [place] [address] UA Nitrite Negative Negative Normal 03-11-2019 [facility] (10535) Comment: Performed By: #### [id number] #### MARCUS Kenyono [facility] [place] [address] UA pH 5.0 4.6-8.0 Normal 03-11-2019 [facility] (77572) Comment: Performed By: #### [id number] #### MARCUS WilcoxHemo [facility] [place] [address] UA Protein Negative Negative Normal 03-11-2019 [facility] (99195) Comment: Performed By: #### [id number] #### MARCUS WilcoxHemo [facility] [place] [address] UA Spec Grav 1.012 1.003-1.030 Normal 03-11-2019 [facility] (72919) Comment: Performed By: #### [id number] #### MARCUS WilcoxHemo [address] [place] [address] UA Squam Epithelial 10-20 0-5 Abnormal 03-11-2019 [facility] (71801) Comment: Performed By: #### [id number] #### MARCUS WilcoxHemo [address] [place] [address] UA Urobilinogen Negative Normal 03-11-2019 [facility] (30794) Comment: Result Comment: Due to a man ufacturing issue, low positive urobilinogen results may be fasely positi ve. Correlate with urine bilirubin and additional clinical/laborato ry findings to assess the risk of hemolytic anemia or liver disease. If clinically indicated, repeat testing with an alternate method is availabl e by contacting the laboratory within 24 hours. Performed By: #### [id number] #### MARCUS WilcoxHemo [facility] [place] [address] UA WBC 0-5 0-5 Normal 03-11-2019 [facility] (70534) Comment: Performed By: #### [id number] #### MARCUS WilcoxHemo [facility] [place] [address] Urobilinogen Qn (U) Negative Negative Normal 03-11-2019 [facility] (00 000) Comment: Performed By: #### [id number] #### MARCUS Kenyono [facility] [place] [address] troponin-i on 03-11 Troponin I.cardiac 0.01 0.00-0.03 ng/mL Normal 03-11-2019 [facility] [Mass/Vol] Health Sy stem (52722) Comment: Performed By: #### [id number] #### MARCUS Kenyono [facility] [place] [address] egfr on 2019-03-11 GFR/1.73 sq M predicted 58 mL/min/1.73 m2 Normal 0 03-11-2019 [facility] among non-blacks [facility] (07434) (S/P/Bld) [Vol rate/Area] Comment: Order Comment: Order Added b y Katya Expert. Performed By: #### [id number] #### MARCUS [place] [id number] GFR/1.73 sq M predicted 48 mL/min/1.73 m2 Normal 0 03-11-2019 [facility] among non-blacks [facility] (91365) (S/P/Bld) [Vol rate/Area] Comment: Order Comment: Order Added b y Katya Expert. Performed By: #### [id number] #### MARCUS Kenyono [facility] [place] [address] cbc w/ auto diff on 2019-03-11 Erythrocyte distribution 13.9 11.5-14.5 % Normal 03-11 [facility] width (RBC) [Ratio] Health System (58663) Comment: Performed By: #### [id number] #### MARCUS WilcoxHemo [facility] [place] [address] Hematocrit (Bld) [Volume 37.4 36.0-48.0 % Normal 03-11 [facility] fraction] Health Sys tem (83236) Comment: Performed By: #### [id number] #### MARCUS WilcoxHemo [facility] [place] [address] Hemoglobin (Bld) 12.4 12.0-16.0 G/DL Normal 03-11-2019 [facility] [Mass/Vol] Health Sy stem (87173) Comment: Performed By: #### [id number] #### MARCUS WilcoxHemo [facility] [place] [address] MCH (RBC) [Entitic mass] 30.2 27.0-31.0 pg Normal 03-11 [facility] () Comment: Performed By: #### [id number] #### MARCUS WilcoxKarlo [address] [place] [address] MCHC (RBC) [Mass/Vol] 33.1 33.0-37.0 G/DL Normal 03-11-20 19 [facility] () Comment: Performed By: #### [id number] #### MARCUS JeriHemo [facility] [place] [address] MCV (RBC) [Entitic vol] 91.2 78.0-100.0 fL Normal 03-11 [facility] (68351) Comment: Performed By: #### [id number] #### MARCUS JeriHemo [address] [place] [address] Platelet mean volume 8.1 7.4-11.0 fL Normal 9 [facility] (Bld) [Entitic vol] System (17513) Comment: Performed By: #### [id number] #### MARCUS WilcoxHemo [facility] [place] [address] Platelets (Bld) [#/Vol] 120 130-400 E3/mcL Low 2018 [facility] () Comment: Performed By: #### [id number] #### MARCUS JeriHemo [address] [place] [address] RBC (Bld) [#/Vol] 4.11 3.90-5.40 E6/mcL Normal 03-11-2019 [facility] () Comment: Performed By: #### [id number] #### MARCUSShawn WilcoxHemo [facility] [place] [address] WBC (Bld) [#/Vol] 3.6 3.6-11.0 E3/mcL Normal 03-11-2019 [facility] () Comment: Performed By: #### [id number] #### MARCUS RemHemo [address] [place] [address] bmp on 2019-03-11 Anion gap [Moles/Vol] 11 10-20 mEq/L Normal 03-11-20 [facility] () Comment: Performed By: #### [id number] #### MARCUS RemHemo [address] [place] [address] Calcium [Mass/Vol] 8.4 8.6-10.3 mg/dL Low 03-11-2019 [facility] (57777) Comment: Performed By: #### [id number] #### MARCUS RemHemo [address] [place] [address] Chloride [Moles/Vol] 110 98-107 mEq/L High [facility] () Comment: Performed By: #### [id number] #### MARCUS RemHemo [address] [place] [address] CO2 [Moles/Vol] 19.0 21.0-32.0 mEq/L Low 03-11-2019 [facility] (90835) Comment: Performed By: #### [id number] #### MARCUS RemHemo [address] [place] [address] Creatinine [Mass/Vol] 1.2 0.5-1.1 mg/dL High 03-11-20 [facility] ( 000) Comment: Performed By: #### [id number] #### MARCUS RemHemo [address] [place] [address] Glucose [Mass/Vol] 88 70-99 mg/dL Normal 03-11-2019 [facility] (78189) Comment: Performed By: #### [id number] #### MARCUS RemHemo [address] [place] [address] Potassium [Moles/Vol] 3.8 3.5-5.3 mEq/L Normal 03-11-20 [facility] ( 000) Comment: Performed By: #### [id number] #### MARCUS RemHemo [address] [place] [address] Sodium [Moles/Vol] 136 136-145 mEq/L Normal 03-11-2019 [facility] () Comment: Performed By: #### [id number] #### MARCUS WilcoxHemo [address] [place] [address] Urea nitrogen [Mass/Vol] 12 6-23 mg/dL Normal 03-11 [facility] () Comment: Performed By: #### [id number] #### MARCUSShawn Wilcox[address] [address] Urea nitrogen/Creatinine 10.0 5.4-30.0 ratio Normal 03-11 [facility] [Mass ratio] [facility] (31436) Comment: Performed By: #### [id number] #### [address] [address] auto diff on 03-11 Basophils (Bld) [#/Vol] 0.0 0.0-0.2 E3/mcL Normal 2018 [facility] () Comment: Order Comment: Order Added b y Discern Expert. Performed By: #### [id number] #### MARCUS WilcoxHemo [address] [place] [address] Basophils/100 WBC (Bld) 0.3 0.0-2.0 % Normal 2018 [facility] () Comment: Order Comment: Order Added b y Discern Expert. Performed By: #### [id number] #### MARCUS WilcoxHemo [address] [place] [address] Eos Absolute 0.1 0.0-0.7 E3/mcL Normal 03-11-2019 [facility] () Comment: Order Comment: Order Added b y Discern Expert. Performed By: #### [id number] #### [facility] [address] [place] [address] Eosinophils/100 WBC (Bld) 3.7 0.0-11.0 % Normal 02-16 [facility] () Comment: Order Comment: Order Added b y Discern Expert. Performed By: #### [id number] #### [facility] [address] [place] [address] Lymphocytes (Bld) [#/Vol] 1.0 1.2-3.4 E3/mcL Low 02-16 [facility] (00 000) Comment: Order Comment: Order Added erma lizama Discern Expert. Performed By: #### [id number] #### MARCUS WilcoxHemo [address] [place] [address] Lymphocytes/100 WBC (Bld) 28.2 20.0-55.0 % Normal 02-16 [facility] (68700) Comment: Order Comment: Order Added b y Discern Expert. Performed By: #### [id number] #### MARCUS JeriHemo [address] [place] [address] [place] Absolute 0.3 0.0-0.7 E3/mcL Normal 03-11-2019 [facility] (07994) Comment: Order Comment: Order Added b y Discern Expert. Performed By: #### [id number] #### MARCUSShawn WilcoxHemo [address] [place] [address] Monocytes/100 WBC (Bld) 8.9 0.0-10.0 % Normal 2018 [facility] (00 000) Comment: Order Comment: Order Added b y Discern Expert. Performed By: #### [id number] #### MARCUS WilcoxHemo [facility] [place] [address] Neutro Absolute 2.1 1.4-6.5 E3/mcL Normal 03-11-2019 [facility] (68186) Comment: Order Comment: Order Added b y Discern Expert. Performed By: #### [id number] #### MARCUSShawn WilcoxHemo [address] [place] [address] Neutro Auto 58.9 37.0-75.0 % Normal 03-11-2019 [facility] (85028) Comment: Order Comment: Order Added b y Discern Expert. Performed By: #### [id number] #### MARCUSShawn WilcoxHemo [address] [place] [address] No panel information on 2019-03-08 Ammonia mass conc 30 OTH - OTH ug/dL 03-08-2019 [facility] (P) (41879) Interpretation and Normal 03-08-2019 [facility] review of laboratory (64889) results Interpretation and Normal 03-08-2019 [facility] review of laboratory (47981) results Thyrotropin Qn 2.54 OTH - OTH m[IU]/L 03-08-2019 [facility] (25732) Albumin mass conc 3.6 3.2 - 5.2 g/dL 03-08-2019 [facility] (49723) ALP enzyme act/vol 99 40 - 150 U/L 03-08-2019 [facility] (70620) ALT enzyme act/vol 31 14 - 65 U/L 03-08-2019 [facility] (39536) Anion gap molar conc 12 10 - 20 mmol/L 9 [facility] (06831) AST enzyme act/vol 29 0 - 45 U/L 03-08-2019 [facility] (18204) Bilirubin mass conc 0.6 0 - 1.3 mg/dL 03-08-2019 [facility] (36901) Calcium mass conc 8.4 8.4 - mg/dL 03-08-2019 [facility] 10.2 (77644) Chloride molar conc 114 98 - 108 mmol/L High 03-08-2019 [facility] (47862) Creatinine mass conc 1.31 0.4 - 1.1 mg/dL High 9 [facility] (67036) GFR/1.73 sq M The eGFR should 03-08-2019 [facility] predicted among be used for (4 2889) non-blacks MDRD vol monitoring renal rate/area (S/P/Bld) function only and not for medication dosing. GFR/1.73 sq 49 >=60 Low 03-08-2019 [facility]-EPI mL/min/1. (36078) vol rate/area 73 m2 (S/P/Bld) Glucose mass conc 94 65 - 99 mg/dL 03-08-2019 [facility] (03209) HCO3 molar conc 20 21 - 32 mmol/L Low 03-08-2019 [facility] (83893) Interpretation and Abnormal 03-08-2019 [facility] review of laboratory (64126) results Potassium molar conc 4.1 3.5 - 5.1 mmol/L 9 [facility] (88218) Protein mass conc 7.2 6 - 8 g/dL 03-08-2019 [facility] (08271) Sodium molar conc 142 135 - 145 mmol/L 03-08-2019 [facility] (60600) Urea nitrogen mass 16 8 - 25 mg/dL 03-08-2019 [facility] conc (95944) Urea 12.2 OTH - OTH mg/mg 03-08-2019 [facility]/Creatinine (38651) mass ratio Valproate mass conc 4 OTH - OTH ug/mL Low 03-08-2019 [facility] (76337) egfr on 2019-02-24 GFR/1.73 sq M predicted 43 mL/min/1.73 m2 Normal 0 02-24-2019 [facility] among non-blacks [facility] (29525) (S/P/Bld) [Vol rate/Area] Comment: Order Comment: Order Added erma Aldana Expert. Performed By: #### [id number] #### MARCUS Kenyono [facility] [place] [address] GFR/1.73 sq M predicted 52 mL/min/1.73 m2 Normal 0 02-24-2019 [facility] among non-blacks [facility] (36725) (S/P/Bld) [Vol rate/Area] Comment: Order Comment: Order Added erma Aldana Expert. Performed By: #### [id number] #### MARCUS WilcoxHemo [address] [place] [address] bmp on 2019-02-24 Anion gap [Moles/Vol] 12 10-20 mEq/L Normal 02-25-20 19 [facility] (00 000) Comment: Performed By: #### [id number] #### MARCUS WilcoxHemo [facility] [place] [address] Calcium [Mass/Vol] 8.9 8.6-10.3 mg/dL Normal 02-24-2019 [facility] (00 000) Comment: Performed By: #### [id number] #### MARCUS WilcoxHemo [address] [place] [address] Chloride [Moles/Vol] 110 98-107 mEq/L High 9 [facility] (00 000) Comment: Performed By: #### [id number] #### MARCUS RemHemo [address] [place] [address] CO2 [Moles/Vol] 21.0 21.0-32.0 mEq/L Normal 02-24-2019 [facility] (00 000) Comment: Performed By: #### [id number] #### MARCUSShawn WilcoxHemo [facility] [place] [address] Creatinine [Mass/Vol] 1.3 0.5-1.1 mg/dL High 02-25-20 [facility] (00 000) Comment: Performed By: #### [id number] #### MARCUSShawn WilcoxHemo [facility] [place] [address] Glucose [Mass/Vol] 89 70-99 mg/dL Normal 02-24-2019 [facility] (28976) Comment: Performed By: #### [id number] #### MARCUSShawn WilcoxHemo [facility] [place] [address] Potassium [Moles/Vol] 4.5 3.5-5.3 mEq/L Normal 02-25-20 [facility] () Comment: Performed By: #### [id number] #### MARCUSShawn WilcoxHemo [address] [place] [address] Sodium [Moles/Vol] 138 136-145 mEq/L Normal 02-24-2019 [facility] ( 000) Comment: Performed By: #### [id number] #### MARCUS Kostaso [address] [place] [address] Urea nitrogen [Mass/Vol] 15 6-23 mg/dL Normal 02-24 [facility] (00 000) Comment: Performed By: #### [id number] #### MARCUSShawn WilcoxHemo [facility] [place] [address] Urea nitrogen/Creatinine 11.5 5.4-30.0 ratio Normal 02-24 [facility] [Mass ratio] [facility] (16072) Comment: Performed By: #### [id number] #### MARCUS JeriHemo [facility] [place] [address] zzplt morph on 2018 Platelet morphology finding NORMAL Normal [facility] (d) System (00 000) Comment: Performed By: #### [id number] #### MARCUSShawn WilcoxHemo [address] [place] [address] Platelets (Bld) [#/Vol] DECREASED Normal 2018 [facility] (00 000) Comment: Performed By: #### [id number] #### MARCUS Kenyono [address] [place] [address] manual diff on 2018 Band form neutrophils/100 WBC 9 0-1 High 02-23-2019 [facility] (d) System (00 000) Comment: Order Comment: Order Added b y Discern Expert. Performed By: #### [id number] #### MARCUS WilcoxHemo [address] [place] [address] Basophil Man 0 0-1 % Normal 02-23-2019 [facility] (18861) Comment: Order Comment: Order Added b y Discern Expert. Performed By: #### [id number] #### MARCUS WilcoxHemo [address] [place] [address] Eosinophils/100 WBC (Bld) 2 0-5 % Normal [facility] (27216) Comment: Order Comment: Order Added b y Discern Expert. Performed By: #### [id number] #### MARCUS WilcoxHemo [address] [place] [address] Lymphocytes/100 WBC (Bld) 33 14-48 % Normal [facility] (00 000) Comment: Order Comment: Order Added b y Discern Expert. Performed By: #### [id number] #### MARCUS WilcoxHemo [address] [place] [address] [place] Man 3 0-0 % High 02-23-2019 [facility] (45697) Comment: Order Comment: Order Added b y Discern Expert. Performed By: #### [id number] #### MARCUS RemHemo [address] [place] [address] Monocyte Man 11 1-11 % Normal 02-23-2019 [facility] (55343) Comment: Order Comment: Order Added b y Discern Expert. Performed By: #### [id number] #### MARCUS RemHemo [address] [place] [address] Myelo Man 2 0-0 % High 02-23-2019 [facility] (32863) Comment: Order Comment: Order Added erma y Discern Expert. Performed By: #### [id number] #### MARCUS WilcoxKarlo [address] [place] [address] Ovalocytes 1+ Normal 02-23-2019 [facility] (38191) Comment: Order Comment: Order Added b y Discern Expert. Performed By: #### [id number] #### MARCUSShawn Luong [facility] [place] [id number] Polychromasia 1+ Normal 02-23-2019 [facility] (32965) Comment: Order Comment: Order Added b y Discern Expert. Performed By: #### [id number] #### MARCUSShawn Luong [facility] [place] [id number] RBC morphology finding SEE MORPHOLOGY Normal [facility] ([facility] (06254) Comment: Order Comment: Order Added erma y Discern Expert. Performed By: #### [id number] #### MARCUS JeriRahul [address] [place], [place] [address] Segs Man 40 37-75 % Normal 02-23-2019 [facility] (97293) Comment: Order Comment: Order Added b y Discern Expert. Performed By: #### [id number] #### MARCUS Kenyoncorky [address] [place] [address] lamotrigine lvl on 2019-02-23 Lamotrigine Lvl None Detected 2.0-20.0 Normal 02-23-2019 [facility] (00 000) Comment: Result Comment: This test wa s developed and its performance characteristics determined by [facility]. It guzman s not been cleared or approved by the Food and Nabeel g Administration. Detection Limit = 1.0 Performed At: [facility] [id number] Aramis Sharpe MD Performed By: #### [id number] #### MARCUS Kenyono [facility] [place] [id number] egfr on 2019-02-23 GFR/1.73 sq M predicted 50 mL/min/1.73 m2 Normal 0 02-23-2019 [facility] among non-blacks [facility] (78614) (S/P/Bld) [Vol rate/Area] Comment: Order Comment: Order Added b dl Aldana Expert. Performed By: #### [id number] #### MARCUS WilcoxKarlo [facility] [place] [address] GFR/1.73 sq M predicted 60 mL/min/1.73 m2 Normal 0 02-23-2019 [facility] among non-blacks [facility] (72077) (S/P/Bld) [Vol rate/Area] Comment: Order Comment: Order Added erma Aldana Expert. Performed By: #### [id number] #### MARCUSShawn Kenyono [facility] [place] [address] cmp on 2019-02-23 Albumin [Mass/Vol] 3.3 3.4-5.0 gm/dL Low 02-23-2019 [facility] (53178) Comment: Performed By: #### [id number] #### MARCUS Kostaso [address] [place] [address] Albumin/Globulin [Mass 1.5 1.1-1.9 ratio Normal [facility]] Health [facility] (69608) Comment: Performed By: #### [id number] #### MARCUS WilcoxHemo [facility] [place] [address] Alk Phos 57 33-110 Int._Unit/L Normal 02-23-2019 [facility] (61280) Comment: Performed By: #### [id number] #### MARCUS JeirHemo [facility] [place] [address] ALT [Catalytic 12 7-45 Int._Unit/L Normal 02-23-2019 [facility] (90845) Comment: Performed By: #### [id number] #### MARCUS JeriHemo [address] [place] [address] Anion gap [Moles/Vol] 10 10-20 mEq/L Normal 02-24-20 19 [facility] (00 000) Comment: Performed By: #### [id number] #### MARCUS WilcoxHemo [address] [place] [address] AST [Catalytic 20 9-39 Int._Unit/L Normal 02-23-2019 [facility] activity/[facility] (36671) Comment: Performed By: #### [id number] #### MARCUS RemHemo [address] [place] [address] Bili Total 0.33 0.00-1.20 mg/dL Normal 02-23-2019 [facility] (76329) Comment: Performed By: #### [id number] #### MARCUS JeriHemo [address] [place] [address] Calcium [Mass/Vol] 8.3 8.6-10.3 mg/dL Low 02-23-2019 [facility] (25916) Comment: Performed By: #### [id number] #### MARCUS JeriHemo [address] [place] [address] Chloride [Moles/Vol] 114 98-107 mEq/L High 9 [facility] () Comment: Performed By: #### [id number] #### MARCUS RemHemo [facility] [place] [address] CO2 [Moles/Vol] 22.0 21.0-32.0 mEq/L Normal 02-23-2019 [facility] (00 000) Comment: Performed By: #### [id number] #### MARCUS RemHemo [facility] [place] [address] Creatinine [Mass/Vol] 1.2 0.5-1.1 mg/dL High 02-24-20 19 [facility] (00 000) Comment: Performed By: #### [id number] #### MARCUS RemHemo [facility] [place] [address] Globulin (S) [Mass/Vol] 2.0 2.0-4.0 G/DL Normal 2018 [facility] (00 000) Comment: Performed By: #### [id number] #### MARCUS RemHemo [address] [place] [address] Glucose [Mass/Vol] 86 70-99 mg/dL Normal 02-23-2019 [facility] (99179) Comment: Performed By: #### [id number] #### MARCUS RemHemo [address] [place] [address] Potassium [Moles/Vol] 4.4 3.5-5.3 mEq/L Normal 02-24-20 19 [facility] (00 000) Comment: Performed By: #### [id number] #### MARCUS WilcoxHemo [address] [place] [address] Protein [Mass/Vol] 5.5 6.4-8.2 gm/dL Low 02-23-2019 [facility] (68574) Comment: Performed By: #### [id number] #### MARCUS JeriHemo [facility] [place] [address] Sodium [Moles/Vol] 141 136-145 mEq/L Normal 02-23-2019 [facility] (00 000) Comment: Performed By: #### [id number] #### MARCUS JeriHemo [facility] [place] [address] Urea nitrogen [Mass/Vol] 11 6-23 mg/dL Normal 02-23 [facility] (00 ) Comment: Performed By: #### [id number] #### MARCUS JeriHemo [address] [place] [address] Urea nitrogen/Creatinine 9.2 5.4-30.0 ratio Normal 02-23 [facility] [Mass ratio] [facility] (20245) Comment: Performed By: #### [id number] #### MARCUS JeriHemo [facility] [place] [address] cbc w/ auto diff on 2019-02-23 Erythrocyte distribution 14.7 11.5-14.5 % High 02-23 [facility] width (RBC) [Ratio] Health System (96572) Comment: Performed By: #### [id number] #### MARCUS JeriHemo [facility] [place] [address] Hematocrit (Bld) [Volume 35.2 36.0-48.0 % Low 02-23 [facility] System (00 000) Comment: Performed By: #### [id number] #### MARCUS JeriHemo [facility] [place] [address] Hemoglobin (Bld) 11.7 12.0-16.0 G/DL Low 02-23-2019 [facility] [Mass/Vol] Health Sy stem (55588) Comment: Performed By: #### [id number] #### MARCUS WilcoxKarlo [facility] [place] [address] MCH (RBC) [Entitic mass] 31.2 27.0-31.0 pg High 02-23 [facility] ( 000) Comment: Performed By: #### [id number] #### MARCUS WilcoxKarlo [facility] [place] [address] MCHC (RBC) [Mass/Vol] 33.2 33.0-37.0 G/DL Normal 02-24-20 19 [facility] () Comment: Performed By: #### [id number] #### MARCUS JeriHemo [facility] [place] [address] MCV (RBC) [Entitic vol] 93.8 78.0-100.0 fL Normal 02-23 [facility] (49174) Comment: Performed By: #### [id number] #### MARCUS WilcoxHemo [address] [place] [address] Platelet mean volume 7.6 7.4-11.0 fL Normal 9 [facility] (Bld) [Entitic vol] System (99927) Comment: Performed By: #### [id number] #### MARCUS WilcoxHemo [facility] [place] [address] Platelets (Bld) [#/Vol] 56 130-400 E3/mcL Low 2018 [facility] () Comment: Performed By: #### [id number] #### MARCUS JeriHemo [address] [place] [address] RBC (Bld) [#/Vol] 3.75 3.90-5.40 E6/mcL Low 02-23-2019 [facility] () Comment: Performed By: #### [id number] #### MARCUSShawn WilcoxHemo [facility] [place] [address] WBC (Bld) [#/Vol] 2.4 3.6-11.0 E3/mcL Low 02-23-2019 [facility] (72485) Comment: Performed By: #### [id number] #### MARCUS Kenyono [facility] [place] [address] c urine on C Urine Final Report: Rare Normal Normal 05-0 [facility] skin joe isolated System (31545) Comment: Performed By: #### [id number] #### MARCUS Kenyono [facility] [place] [address] ammonia on Ammonia (P) [Mass/Vol] 53 16-53 mcmol/L Normal 019 [facility] (00 000) Comment: Performed By: #### [id number] #### MARCUS Kenyono [address] [place] [address] .manual abs on 2018 Basophil Abs Man 0.0 0.0-0.2 10x3/ Normal 02-23-2019 [facility] (92544) Comment: Order Comment: Order Added b y Discern Expert. Performed By: #### [id number] #### MARCUS Kostascorky [address] [place] [address] Eos Abs Man 0.0 0.0-0.5 10x3/ Normal 02-23-2019 [facility] (79433) Comment: Order Comment: Order Added b y Discern Expert. Performed By: #### [id number] #### MARCUS Kenyono [address] [place] [address] Lymph Abs Man 0.8 1.2-3.4 10x3/ Low 02-23-2019 [facility] (17930) Comment: Order Comment: Order Added b y Discern Expert. Performed By: #### [id number] #### MARCUS Kostaso [address] [place] [address] [place] Abs Man 0.3 0.0-0.7 10x3/ Normal 02-23-2019 [facility] (14539) Comment: Order Comment: Order Added b y Discern Expert. Performed By: #### [id number] #### MARCUS Kostaso [address] [place], [place] [address] Segs Abs Man 1.0 1.4-6.5 10x3/ Low 02-23-2019 [facility] (61049) Comment: Order Comment: Order Added b y Discern Expert. Performed By: #### [id number] #### MARCUSShawn WilcoxHemo [facility] [place] [address] zzplt morph on 2018 Platelet morphology finding ENLARGED Normal [facility] (d) System (00 000) Comment: Performed By: #### [id number] #### MARCUSShawn Kenyono [facility] [place] [address] Platelets (Bld) [#/Vol] DECREASED Normal 2018 [facility] (00 000) Comment: Performed By: #### [id number] #### MARCUS JeriHemo [address] [place] [address] valproic acid on 05-03-08 Valpro Acid Lvl 75 50-100 microgram/mL Normal 02-22-2019 [facility] (00 000) Comment: Performed By: #### [id number] #### MARCUS Jeri[address] [address] phosphorus on 02-22 Phosphate [Mass/Vol] 2.7 2.5-4.9 mg/dL Normal 9 [facility] (00 000) Comment: Performed By: #### [id number] #### MARCUS Kostaso [address] [place] [address] manual diff on 2018 Anisocytosis Ql (Bld) 1+ Normal 02-23-20 [facility] (99191) Comment: Order Comment: Order Added erma y Discern Expert. Performed By: #### [id number] #### MARCUSShawn Luong [address] [place] [address] Basophil Man 0 0-1 % Normal 02-22-2019 [facility] (01440) Comment: Order Comment: Order Added b y Discern Expert. Performed By: #### [id number] #### MARCUSShawn Kenyono [address] [place] [address] Eosinophils/100 WBC (Bld) 0 0-5 % Normal 05-0 [facility] (53692) Comment: Order Comment: Order Added b y Discern Expert. Performed By: #### [id number] #### MARCUS Kenyono [address] [place] [address] Lymphocytes/100 WBC (d) 51 14-48 % High 05- 8-2018 [facility] (34065) Comment: Order Comment: Order Added erma Aldana Expert. Performed By: #### [id number] #### MARCUS Kenyono [address] [place] [address] Monocyte Man 9 1-11 % Normal 02-22-2019 [facility] (35544) Comment: Order Comment: Order Added b dl Discern Expert. Performed By: #### [id number] #### MARCUS JeriRahul [facility] [place] [address] RBC morphology finding SEE MORPHOLOGY Normal [facility] ([facility]) [facility] (31009) Comment: Order Comment: Order Added erma Aldana Expert. Performed By: #### [id number] #### MARCUS Kostaso [address] [place] [address] Segs Man 40 37-75 % Normal 02-22-2019 [facility] (58332) Comment: Order Comment: Order Added erma Aldana Expert. Performed By: #### [id number] #### MARCUS Kenyono [address] [place] [address] magnesium on 08 Magnesium [Mass/Vol] 1.8 1.6-2.4 mg/dL Normal 9 [facility] (00 000) Comment: Performed By: #### [id number] #### MARCUSShawn Kenyon[address] [address] hgba1c on 8 HbA1c ([facility]) [Mass fraction] 5.1 4.0-6.3 % Normal [facility] (00 000) Comment: Performed By: #### [id number] #### MARCUSShawn Kenyono [address] [place], [place] [address] gases - blood on 05-03-08 Allens Test. Normal 02-22-2019 [facility] (13645) Comment: Performed By: #### [id number] #### [facility] [address] [place], [place] [id number] Base Excess. -9 -2-3 mmol/L Low 02-22-2019 [facility] (76943) Comment: Performed By: #### [id number] #### MARCUS RemHemo [facility] [place] [address] CO2 Tot. 17 22-28 mmol/L Low 02-22-2019 [facility] (92750) Comment: Performed By: #### [id number] #### MARCUS RemHemo [facility] [place] [address] CPAP/PEEP(cmH2O). NOT CALCULATED Normal 019 [facility] (00 000) Comment: Performed By: #### [id number] #### MARCUS RemHemo [facility] [place] [address] FiO2. 21 % Normal 02-22-2019 [facility] (24993) Comment: Performed By: #### [id number] #### MARCUS RemHemo [facility]5 [place] [address] HCO#. 16.3 22.0-26.0 mmol/L Low 02-22-2019 [facility] (61590) Comment: Performed By: #### [id number] #### MARCUS RemHemo [facility] [place] [address] O2 Devices. Room Air Normal 02-22-2019 [facility] (00449) Comment: Performed By: #### [id number] #### MARCUS RemHemo [facility]5 [place] [address] OPID. [id number] Normal 02-22-2019 [facility] (31646) Comment: Performed By: #### [id number] #### MARCUS RemHemo [facility]5 [place] [id number] Oxygen (Bld) [Partial 101 80-100 mmHg High 02-23-20 [facility]] System (00 000) Comment: Performed By: #### [id number] #### MARCUS RemHemo [facility]5 [place] [id number] Oxygen saturation in Blood 98 95-100 % Normal [facility] (00 000) Comment: Performed By: #### [id number] #### [place] [address] P CO2. 28.4 35.0-45.0 mmHg Low 02-22-2019 [facility] (67992) Comment: Performed By: #### [id number] #### [place] [address] Patient Temp. NOT CALCULATED Normal 02-22-2019 [facility] (38349) Comment: Performed By: #### [id number] #### [place] [address] pH (Bld) 7.367 7.350-7.450 Normal 02-22-2019 [facility] (70300) Comment: Performed By: #### [id number] #### [place] [address] PSV/IP(cmH2O). NOT CALCULATED Normal 02-22-2019 [facility] (61575) Comment: Performed By: #### [id number] #### [place] [address] Sample Site. R brach Normal 02-22-2019 [facility] (23521) Comment: Performed By: #### [id number] #### [place] [address] Sample Type. Arterial Normal 02-22-2019 [facility] (81163) Comment: Performed By: #### [id number] #### [place] [address] Set RR(b/min). NOT CALCULATED Normal 02-22-2019 [facility] (68234) Comment: Performed By: #### [id number] #### [facility] [address] [place] [address] Tidal Volume(mL). NOT CALCULATED Normal 019 [facility] (00 000) Comment: Performed By: #### [id number] #### [facility] [address] [place] [address] Vent Mode. NOT CALCULATED Normal 02-22-2019 [facility] (04825) Comment: Performed By: #### [id number] #### MARCUS Kenyono [address] [place] [address] egfr on 2019-02-22 GFR/1.73 sq M predicted 56 mL/min/1.73 m2 Normal 0 02-22-2019 [facility] among non-blacks [facility] (29038) (S/P/Bld) [Vol rate/Area] Comment: Order Comment: Order added erma Aldana Expert. Performed By: #### [id number] # ### MARCUS JeriHemo [facility]5 [place] [address] GFR/1.73 sq M predicted 46 mL/min/1.73 m2 Normal 0 02-22-2019 [facility] among non-blacks [facility] (38606) (S/P/Bld) [Vol rate/Area] Comment: Order Comment: Order added erma Aldana Expert. Performed By: #### [id number] # ### MARCUS JeriHemo [address] [place] [address] cbc w/ auto diff on 2019-02-22 Erythrocyte distribution 15.0 11.5-14.5 % High 02-22 [facility] width (RBC) [Ratio] Health System (17067) Comment: Performed By: #### [id number] #### MARCUS JeriHemo [facility]5 [place] [address] Hematocrit (Bld) [Volume 35.9 36.0-48.0 % Low 02-22 [facility] Health fraction] System (00 000) Comment: Performed By: #### [id number] #### MARCUS JeriHemo [facility]5 [place] [address] Hemoglobin (Bld) 11.8 12.0-16.0 G/DL Low 02-22-2019 [facility] [Mass/Vol] Health Sy stem (96900) Comment: Performed By: #### [id number] #### MARCUSShawn WilcoxHemo [facility] [place] [address] MCH (RBC) [Entitic mass] 31.1 27.0-31.0 pg High 02-22 [facility] (00 000) Comment: Performed By: #### [id number] #### [facility] [place] [address] MCHC (RBC) [Mass/Vol] 32.9 33.0-37.0 G/DL Low 02-23-20 [facility] (00 000) Comment: Performed By: #### [id number] #### MARCUS WilcoxHemo [facility]5 [place] [address] MCV (RBC) [Entitic vol] 94.6 78.0-100.0 fL Normal 02-22 [facility] (58643) Comment: Performed By: #### [id number] #### MARCUS WilcoxHemo [facility]5 [place] [address] Platelet mean volume 7.9 7.4-11.0 fL Normal 9 [facility] (Bld) [Entitic vol] System (02949) Comment: Performed By: #### [id number] #### MARCUS WilcoxHemo [facility]5 [place] [address] Platelets (Bld) [#/Vol] 62 130-400 E3/mcL Low 2018 [facility] (00 000) Comment: Performed By: #### [id number] #### MARCUS WilcoxHemo [facility]5 [place] [address] RBC (Bld) [#/Vol] 3.79 3.90-5.40 E6/mcL Low 02-22-2019 [facility] (00 000) Comment: Performed By: #### [id number] #### MARCUS WilcoxHemo [facility]5 [place] [address] WBC (Bld) [#/Vol] 2.8 3.6-11.0 E3/mcL Low 02-22-2019 [facility] (78168) Comment: Performed By: #### [id number] #### MARCUS JeriHemo [address] [place] [address] bmp on 2019-02-22 Anion gap [Moles/Vol] 10 10-20 mEq/L Normal 02-23-20 [facility] (00 000) Comment: Performed By: #### [id number] # ### MARCUS WilcoxHemo [address] [place] [address] Calcium [Mass/Vol] 7.7 8.6-10.3 mg/dL Low 02-22-2019 [facility] (48627) Comment: Performed By: #### [id number] # ### MARCUS WilcoxHemo [address] [place] [address] Chloride [Moles/Vol] 115 98-107 mEq/L High 9 [facility] (00 000) Comment: Performed By: #### [id number] # ### MARCUS WilcoxHemo [address] [place] [address] CO2 [Moles/Vol] 20.0 21.0-32.0 mEq/L Low 02-22-2019 [facility] (97503) Comment: Performed By: #### [id number] # ### MARCUS WilcoxHemo [address] [place] [address] Creatinine [Mass/Vol] 1.2 0.5-1.1 mg/dL High 02-23-20 19 [facility] (00 000) Comment: Performed By: #### [id number] # ### MARCUS JeriHemo [address] [place] [address] Glucose [Mass/Vol] 89 70-99 mg/dL Normal 02-22-2019 [facility] (26070) Comment: Performed By: #### [id number] # ### MARCUS WilcoxHemo [facility]5 [place] [address] Potassium [Moles/Vol] 4.3 3.5-5.3 mEq/L Normal 02-23-20 19 [facility] (00 000) Comment: Performed By: #### [id number] # ### MARCUS RemHemo [facility]5 [place] [address] Sodium [Moles/Vol] 141 136-145 mEq/L Normal 02-22-2019 [facility] (00 000) Comment: Performed By: #### [id number] # ### MARCUS RemHemo [address] [place] [address] Urea nitrogen [Mass/Vol] 14 6-23 mg/dL Normal 02-22 [facility] (00 000) Comment: Performed By: #### [id number] # ### MARCUS RemHemo [address] [place] [address] Urea nitrogen/Creatinine 11.7 5.4-30.0 ratio Normal 02-22 [facility] [Mass ratio] [facility] (63862) Comment: Performed By: #### [id number] # ### MARCUS Kenyono [address] [place] [address] .manual abs on 2018 Basophil Abs Man 0.0 0.0-0.2 10x3/ Normal 02-22-2019 [facility] (48215) Comment: Order Comment: Order Added b y Discern Expert. Performed By: #### [id number] #### MARCUSShawn WilcoxKarlo [address] [place] [address] Eos Abs Man 0.0 0.0-0.5 10x3/ Normal 02-22-2019 [facility] (81554) Comment: Order Comment: Order Added b y Discern Expert. Performed By: #### [id number] #### MARCUSShawn WilcoxKarlcorky [address] [place] [address] Lymph Abs Man 1.4 1.2-3.4 10x3/ Normal 02-22-2019 [facility] (35538) Comment: Order Comment: Order Added b y Discern Expert. Performed By: #### [id number] #### MARCUSShawn WilcoxHemo [address] [place] [address] [place] Abs Man 0.3 0.0-0.7 10x3/ Normal 02-22-2019 [facility] (05826) Comment: Order Comment: Order Added b y Discern Expert. Performed By: #### [id number] #### MARCUS Kostaso [address] [place] [address] Segs Abs Man 1.1 1.4-6.5 10x3/ Low 02-22-2019 [facility] (08540) Comment: Order Comment: Order Added b y Discern Expert. Performed By: #### [id number] #### [place] [address] zzplt morph on 2018 Platelet morphology finding ENLARGED Normal [facility] (d) System (00 000) Comment: Performed By: #### [id number] #### MARCUS Urinalysis Automated Suggs bsection [address] [place] [address] Platelets (Bld) [#/Vol] DECREASED Normal 2018 [facility] (00 000) Comment: Performed By: #### [id number] #### MRACUS Urinalysis Automated [facility] bsection [address] [place] [address] valproic acid on 05-03-07 Valpro Acid Lvl 102 50-100 microgram/mL Critically 02-21-2019 [facility] (00 000) Comment: Result Comment: Critical Res ult (s) Called to and read back by: XUAN GARCIA at: 02/21/2019 18:51 :29 by:ZFOIA Performed By: #### [id number] # ### MARCUS RemHemo [address] [place] [address] Valpro Acid Lvl 101 50-100 microgram/mL Critically 02-21-2019 [facility] (00 000) Comment: Result Comment: Critical Res ult (s) Called to and read back by: XUAN GARCIA at: 02/21/2019 13:43 :39 by:RAY Performed By: #### [id number] # ### MARCUS Microbiology Subsection [facility] [place] [id number] ua complete on 2018 Color (U) Straw Yellow Normal 02-21-2019 [facility] (31927) Comment: Order Comment: Straight Cath as needed Performed By: #### [id number] # ### MARCUS Microbiology Subsection [address] [place] [address] Glucose (U) [Mass/Vol] Negative Negative mg/dL Normal 019 [facility] tem (75240) Comment: Order Comment: Straight Cath as needed Performed By: #### [id number] # ### MARCUS Microbiology Subsection [address] [place] [address] Ketones Ql (U) Negative Negative Normal 02-21-2019 [facility] (12822) Comment: Order Comment: Straight Cath as needed Performed By: #### [id number] # ### MARCUS Microbiology Subsection [address] [place] [address] RBC (U) [#/Vol] 0-3 0-3 Normal 02-21-2019 [facility] (81954) Comment: Order Comment: Straight Cath as needed Performed By: #### [id number] # ### MARCUS Microbiology Subsection [address] [place] [address] UA Blood Negative Negative Normal 02-21-2019 [facility] (03264) Comment: Order Comment: Straight Cath as needed Performed By: #### [id number] # ### MARCUS Microbiology Subsection [address] [place] [address] UA Bacteria Trace None Abnormal 02-21-2019 [facility] (48135) Comment: Order Comment: Straight Cath as needed Performed By: #### [id number] # ### MARCUS Microbiology Subsection [address] [place] [address] UA Clarity SltCloudy Clear Abnormal 02-21-2019 [facility] (26650) Comment: Order Comment: Straight Cath as needed Performed By: #### [id number] # ### MARCUS Microbiology Subsection [address] [place] [address] UA Leuk Est 1+ Negative Abnormal 02-21-2019 [facility] (33854) Comment: Order Comment: Straight Cath as needed Performed By: #### [id number] # ### MARCUS Microbiology Subsection [address] [place] [address] UA Mucous Trace Trace Abnormal 02-21-2019 [facility] (12775) Comment: Order Comment: Straight Cath as needed Performed By: #### [id number] # ### MARCUS Microbiology Subsection [address] [place] [address] UA Nitrite Negative Negative Normal 02-21-2019 [facility] (23663) Comment: Order Comment: Straight Cath as needed Performed By: #### [id number] # ### MARCUS Microbiology Subsection [address] [place] [address] UA pH 5.0 4.6-8.0 Normal 02-21-2019 [facility] (07262) Comment: Order Comment: Straight Cath as needed Performed By: #### [id number] # ### MARCUS Microbiology Subsection [address] [place] [address] UA Protein Negative Negative Normal 02-21-2019 [facility] (44830) Comment: Order Comment: Straight Cath as needed Performed By: #### [id number] # ### MARCUS Microbiology Subsection [facility] [place] [address] UA Spec Grav 1.005 1.003-1.030 Normal 02-21-2019 [facility] (76335) Comment: Order Comment: Straight Cath as needed Performed By: #### [id number] # ### MARCUS Microbiology Subsection [facility] [place] [address] UA Squam Epithelial 5-10 0-5 Abnormal 02-21-2019 [facility] (73332) Comment: Order Comment: Straight Cath as needed Performed By: #### [id number] # ### MARCUS Microbiology Subsection [address] [place] [address] UA Urobilinogen Negative Normal 02-21-2019 [facility] (46374) Comment: Order Comment: Straight Cath as needed [...] laboratory within 24 hours. Performed By: #### [id number] # ### MARCUS Microbiology Subsection [address] [place] [address] UA WBC 0-5 0-5 Normal 02-21-2019 [facility] (13481) Comment: Order Comment: Straight Cath as needed Performed By: #### [id number] # ### MARCUS Microbiology Subsection [address] [place] [address] Urobilinogen Qn (U) Negative Negative Normal 02-21-2019 [facility] (00 000) Comment: Order Comment: Straight Cath as needed Performed By: #### [id number] # ### MARCUS Microbiology Subsection [address] [place] [address] u sodium on 2019-02 Sodium [Moles/Vol] 36 mmol/L Normal 02-21-2019 [facility] (64503) Comment: Performed By: #### [id number] # ### MARCUS Microbiology Subsection [address] [place] [address] u protein on 02-21 Protein [Mass/Vol] 4 1-14 mg/dL Normal 02-21-2019 [facility] (06941) Comment: Performed By: #### [id number] # ### MARCUS RemHemo [address] [place] [address] u creatinine on 201 06-22-07 U Creatinine 31 20-300 mg/dL Normal 02-21-2019 [facility] (73355) Comment: Performed By: #### [id number] # ### MARCUS RemHemo [address] [place] [address] u bhcg qlt on 02-21 HCG.beta subunit Qn Neg Neg m[IU]/mL Normal 02-21-2019 [facility] (00 000) Comment: Performed By: #### [id number] # ### MARCUS Microbiology Subsection [address] [place] [address] tsh on 2019-02-21 TSH Qn 4.82 0.30-5.60 mcIU/mL Normal 02-21-2019 [facility] (75628) Comment: Order Comment: With T4fr Ref kurt Performed By: #### [id number] # ### MARCUS Microbiology Subsection [address] [place] [id number] salicylate on 02-21 Salicylate Lvl <1.5 4.0-20.0 Low 02-21-2019 [facility] (18769) Comment: Performed By: #### [id number] # ### MARCUS RemHemo [address] [place] [address] morph on 2019-02-21 Polychromasia 1+ Normal 02-21-2019 [facility] (36603) Comment: Order Comment: Straight Cath as needed Performed By: #### [id number] #### MARCUS Urinalysis Automated [facility] bsection [address] [place] [address] RBC morphology finding SEE MORPHOLOGY Normal [facility] (d) Health Sys tem (62021) Comment: Order Comment: Straight Cath as needed Performed By: #### [id number] #### MARCUS Urinalysis Automated [facility] bsection [address] [place] [address] Teardrop Cell 1+ Normal 02-21-2019 [facility] (28535) Comment: Order Comment: Straight Cath as needed Performed By: #### [id number] #### MARCUS Urinalysis Automated [facility] bsection [address] [place] [address] magnesium on 02-21 Magnesium [Mass/Vol] 1.7 1.6-2.4 Int._Unit/L Normal [facility] (45938) Comment: Performed By: #### [id number] # ### MARCUS Microbiology Subsection [address] [place] [address] lipase level on 06-22-07 Lipase Lvl 37 9-82 Int._Unit/L Normal 02-21-2019 [facility] (65936) Comment: Performed By: #### [id number] #### MARCUS Urinalysis Automated [facility] bsection [address] [place], [place] [address] lactic acid on 2018 Lactate [Moles/Vol] 1.4 0.4-2.0 mmol/L Normal 02-21-2019 [facility] (00 000) Comment: Order Comment: Sepsis Reflex order due to high lactic acid level Performed By: #### [id number] # ### MARCUS RemHemo [address] [place] [address] Lactate [Moles/Vol] 2.2 0.4-2.0 mmol/L High 02-21-2019 [facility] (00 000) Comment: Performed By: #### [id number] # ### MARCUS RemHemo [facility] [place] [address] hep func panel on Albumin [Mass/Vol] 4.0 3.4-5.0 gm/dL Normal 02-21-2019 [facility] (00 000) Comment: Performed By: #### [id number] #### MARCUS Urinalysis Automated [facility] bsection [address] [place] [address] Albumin/Globulin [Mass 1.5 1.1-1.9 ratio Normal [facility] (36812) Comment: Performed By: #### [id number] #### MARCUS Urinalysis Automated [facility] bsection [address] [place] [address] Alk Phos 69 33-110 Int._Unit/L Normal 02-21-2019 [facility] (63262) Comment: Performed By: #### [id number] #### MARCUS Urinalysis Automated [facility] bsection [address] [place] [address] ALT [Catalytic 18 7-45 Int._Unit/L Normal 02-21-2019 [facility] (91179[facility] Comment: Performed By: #### [id number] #### MARCUS Urinalysis Automated [facility] bsection [address] [place] [address] AST [Catalytic 33 9-39 Int._Unit/L Normal 02-21-2019 [facility] (96691) Comment: Performed By: #### [id number] #### MARCUS Urinalysis Automated [facility] bsection [address] [place] [address] Bili Direct 0.10 0.00-0.30 mg/dL Normal 02-21-2019 [facility] (65902) Comment: Performed By: #### [id number] #### MARCUS Urinalysis Automated [facility] bsection [address] [place] [address] Bili Indirect 0.33 mg/dL Normal 02-21-2019 [facility] (60144) Comment: Result Comment: No establish ed ranges available for the indirect bilirubin Performed By: #### [id number] #### MARCUS Urinalysis Automated [facility] bsection [address] [place] [address] Bili Total 0.43 0.00-1.20 mg/dL Normal 02-21-2019 [facility] (27016) Comment: Performed By: #### [id number] #### MARCUS Urinalysis Automated [facility] bsection [address] [place] [address] Globulin (S) [Mass/Vol] 3.0 2.0-4.0 G/DL Normal 2018 [facility] (00 000) Comment: Performed By: #### [id number] #### MARCUS Urinalysis Automated [facility] bsection [address] [place] [address] Protein [Mass/Vol] 6.6 6.4-8.2 gm/dL Normal 02-21-2019 [facility] (00 000) Comment: Performed By: #### [id number] #### MARCUS Urinalysis Automated [facility] bsection [address] [place], [place] [address] gases - blood on 05-03-07 Allens Test. Positive Normal 02-21-2019 [facility] (90160) Comment: Performed By: #### [id number] # ### MARCUS RemHemo [address] [place] [address] Base Excess. -9 -2-3 mmol/L Low 02-21-2019 [facility] (76029) Comment: Performed By: #### [id number] # ### MARCUS RemHemo [facility] [place] [address] CO2 Tot. 18 22-28 mmol/L Low 02-21-2019 [facility] (29369) Comment: Performed By: #### [id number] # ### MARCUS RemHemo [address] [place] [address] CPAP/PEEP(cmH2O). 0 Normal 02-21-2019 [facility] (74465) Comment: Performed By: #### [id number] # ### MARCUS RemHemo [facility] [place] [address] FiO2. 21 % Normal 02-21-2019 [facility] (56147) Comment: Performed By: #### [id number] # ### MARCUS RemHemo [facility]5 [place] [address] HCO#. 17.2 22.0-26.0 mmol/L Low 02-21-2019 [facility] (99701) Comment: Performed By: #### [id number] # ### MARCUS RemHemo [facility] [place] [address] O2 Devices. Room Air Normal 02-21-2019 [facility] (59377) Comment: Performed By: #### [id number] # ### MARCUS RemHemo [address] [place] [id number] OPID. [id number] Normal 02-21-2019 [facility] (73002) Comment: Performed By: #### [id number] # ### MARCUS RemHemo [address] [place] [address] Oxygen (Bld) [Partial 85 80-100 mmHg Normal 02-22-20 19 [facility]] System (00 000) Comment: Performed By: #### [id number] # ### MARCUS Kostaso [facility] [place] [address] Oxygen saturation in Blood 96 95-100 % Normal [facility] (00 000) Comment: Performed By: #### [id number] # ### MARCUSShawn WilcoxKarlo [facility] [place] [address] P CO2. 32.7 35.0-45.0 mmHg Low 02-21-2019 [facility] (73022) Comment: Performed By: #### [id number] # ### MARCUS Kostaso [facility] [place] [address] Patient Temp. NOT CALCULATED Normal 02-21-2019 [facility] (39108) Comment: Performed By: #### [id number] # ### MARCUS Kostaso [address] [place] [address] pH (Bld) 7.329 7.350-7.450 Low 02-21-2019 [facility] (41116) Comment: Performed By: #### [id number] # ### MARCUS Kostaso [address] [place] [address] PSV/IP(cmH2O). 0 Normal 02-21-2019 [facility] (65639) Comment: Performed By: #### [id number] # ### MARCUS Kostaso [address] [place] [address] Sample Site. R rad Normal 02-21-2019 [facility] (73414) Comment: Performed By: #### [id number] # ### MARCUSShawn WilcoxHemo [facility] [place] [address] Sample Type. Arterial Normal 02-21-2019 [facility] (56302) Comment: Performed By: #### [id number] # ### MARCUSShawn WilcoxKarlo [facility] [place] [address] Set RR(b/min). 0 Normal 02-21-2019 [facility] (80369) Comment: Performed By: #### [id number] # ### MARCUSShawn WilcoxHemo [address] [place] [address] Tidal Volume(mL). 0 Normal 02-21-2019 [facility] (07859) Comment: Performed By: #### [id number] # ### MARCUSShawn WilcoxHemo [address] [place] [address] Vent Mode. NOT CALCULATED Normal 02-21-2019 [facility] (16985) Comment: Performed By: #### [id number] # ### MARCUSShawn WilcoxHemo [facility] [place] [address] Allens Test. Neg Normal 02-21-2019 [facility] (24174) Comment: Performed By: #### [id number] # ### MARCUSShawn WilcoxHemo [facility] [place] [address] Base Excess. -8 -2-3 mmol/L Low 02-21-2019 [facility] (03053) Comment: Performed By: #### [id number] # ### MARCUSShawn WilcoxHemo [address] [place] [address] CO2 Tot. 19 22-28 mmol/L Low 02-21-2019 [facility] (33046) Comment: Performed By: #### [id number] # ### MARCSUShawn WilcoxHemo [facility] [place] [address] CPAP/PEEP(cmH2O). NOT CALCULATED Normal 019 [facility] (00 000) Comment: Performed By: #### [id number] # ### MARCUSShawn WilcoxHemo [facility] [place] [address] FiO2. 21 % Normal 02-21-2019 [facility] (14416) Comment: Performed By: #### [id number] # ### MARCUS RemHemo [facility] [place] [address] HCO#. 17.9 22.0-26.0 mmol/L Low 02-21-2019 [facility] (53284) Comment: Performed By: #### [id number] # ### MARCUSShawn WilcoxHemo [facility] [place] [address] O2 Devices. Room Air Normal 02-21-2019 [facility] (16077) Comment: Performed By: #### [id number] # ### MARCUS WilcoxHemo [address] [place] [address] OPID. [id number] Normal 02-21-2019 [facility] (72951) Comment: Performed By: #### [id number] # ### MARCUS WilcoxHemo [facility]5 [place] [address] Oxygen (Bld) [Partial 86 80-100 mmHg Normal 02-22-20 19 [facility]] System (00 000) Comment: Performed By: #### [id number] # ### MARCUS WilcoxHemo [facility]5 [place] [id number] Oxygen saturation in Blood 96 95-100 % Normal [facility] (00 000) Comment: Performed By: #### [id number] # ### MARCUS WilcoxHemo [address] [place], [place] [address] P CO2. 34.1 35.0-45.0 mmHg Low 02-21-2019 [facility] (27756) Comment: Performed By: #### [id number] # ### MARCUS JeriHemo [address] [place] [address] Patient Temp. NOT CALCULATED Normal 02-21-2019 [facility] (02451) Comment: Performed By: #### [id number] # ### MARCUS Kenyono [facility]5 [place] [id number] pH (Bld) 7.329 7.350-7.450 Low 02-21-2019 [facility] (33173) Comment: Performed By: #### [id number] # ### MARCUS Kostaso [address] [place], [place] [address] PSV/IP(cmH2O). NOT CALCULATED Normal 02-21-2019 [facility] (34536) Comment: Performed By: #### [id number] # ### MARCUS JeriHemo [facility]5 [place] [address] Sample Site. R rad Normal 02-21-2019 [facility] (87516) Comment: Performed By: #### [id number] # ### MARCUS JeriHemo [facility]5 [place] [id number] Sample Type. Arterial Normal 02-21-2019 [facility] (39044) Comment: Performed By: #### [id number] # ### MARCUS RemHemo [address] [place] [address] Set RR(b/min). NOT CALCULATED Normal 02-21-2019 [facility] (34419) Comment: Performed By: #### [id number] # ### MARCUS RemHemo [address] [place] [address] Tidal Volume(mL). NOT CALCULATED Normal 019 [facility] (00 000) Comment: Performed By: #### [id number] # ### MARCUS RemHemo [address] [place] [id number] Vent Mode. NOT CALCULATED Normal 02-21-2019 [facility] (33362) Comment: Performed By: #### [id number] # ### MARCUS RemHemo [address] [place] [address] ethanol on Ethanol [Mass/Vol] <10 <=10 mg/dL Normal 02-21-2019 [facility] (62638) Comment: Performed By: #### [id number] # ### MARCUS Microbiology Subsection [address] [place] [address] egfr on 2019-02-21 GFR/1.73 sq M predicted 49 mL/min/1.73 m2 Normal 0 02-21-2019 [facility] among non-blacks [facility] System (48178) (S/P/Bld) [Vol rate/Area] Comment: Order Comment: Straight Cath as needed Performed By: #### [id number] #### MARCUS Urinalysis Automated Suggs bsection [address] [place] [address] GFR/1.73 sq M predicted 40 mL/min/1.73 m2 Normal 0 02-21-2019 [facility] among non[facility]blacks [facility] (19959) (S/P/Bld) [Vol rate/Area] Comment: Order Comment: Straight Cath as needed Performed By: #### [id number] #### MARCUS Urinalysis Automated [facility] bsection [address] [place] [address] ck on 2019-02-21 Total CK 46 <=215 Int._Unit/L Normal 02-21-2019 [facility] (84341) Comment: Performed By: #### [id number] #### MARCUS Urinalysis Automated [facility] bsection [address] [place] [address] cbc w/ auto diff on 2019-02-21 Erythrocyte distribution 14.7 11.5-14.5 % High 02-21 [facility] width (RBC) [Ratio] Health System (84285) Comment: Performed By: #### [id number] #### MARCUS Urinalysis Automated [facility] bsection [address] [place] [address] Hematocrit (Bld) [Volume 41.4 36.0-48.0 % Normal 02-21 [facility] tem (29602) Comment: Performed By: #### [id number] #### MARCUS Urinalysis Automated [facility] bsection [address] [place] [address] Hemoglobin (Bld) 13.3 12.0-16.0 G/DL Normal 02-21-2019 [facility] [Mass/Vol] Health Sy stem (50613) Comment: Performed By: #### [id number] #### MARCUS Urinalysis Automated [facility] bsection [address] [place] [address] MCH (RBC) [Entitic mass] 30.7 27.0-31.0 pg Normal 02-21 [facility] (00 000) Comment: Performed By: #### [id number] #### MARCUS Urinalysis Automated [facility] bsection [address] [place] [address] MCHC (RBC) [Mass/Vol] 32.2 33.0-37.0 G/DL Low 02-22-20 19 [facility] (00 000) Comment: Performed By: #### [id number] #### MARCUS Urinalysis Automated [facility] bsection [address] [place] [address] MCV (RBC) [Entitic vol] 95.5 78.0-100.0 fL Normal 02-21 [facility] Sys tem (63942) Comment: Performed By: #### [id number] #### MARCUS Urinalysis Automated [facility] bsection [address] [place] [address] Platelet mean volume 7.9 7.4-11.0 fL Normal 9 [facility] (d) [Entitic vol] System (47555) Comment: Performed By: #### [id number] #### MARCUS Urinalysis Automated [facility] bsection [address] [place] [address] Platelets (Bld) [#/Vol] 66 130-400 E3/mcL Low 2018 [facility] ( 000) Comment: Performed By: #### [id number] #### MARCUS Urinalysis Automated [facility] bsection [address] [place] [address] RBC (Bld) [#/Vol] 4.34 3.90-5.40 E6/mcL Normal 02-21-2019 [facility] () Comment: Performed By: #### [id number] #### MARCUS Urinalysis Automated [facility] bsection [address] [place] [address] WBC (Bld) [#/Vol] 4.2 3.6-11.0 E3/mcL Normal 02-21-2019 [facility] () Comment: Performed By: #### [id number] #### MARCUS Urinalysis Automated [facility] bsection [address] [place] [address] bmp on 2019-02-21 Anion gap [Moles/Vol] 18 10-20 mEq/L Normal 02-22-20 19 [facility] () Comment: Performed By: #### [id number] #### MARCUS Urinalysis Automated [facility] bsection [address] [place] [address] Calcium [Mass/Vol] 8.6 8.6-10.3 mg/dL Normal 02-21-2019 [facility] () Comment: Performed By: #### [id number] #### MARCUS Urinalysis Automated [facility] bsection [address] [place] [address] Chloride [Moles/Vol] 106 98-107 mEq/L Normal 9 [facility] () Comment: Performed By: #### [id number] #### MARCUS Urinalysis Automated [facility] bsection [address] [place] [address] CO2 [Moles/Vol] 16.0 21.0-32.0 mEq/L Low 02-21-2019 [facility] (79972) Comment: Performed By: #### [id number] #### MARCUS Urinalysis Automated [facility] bsection [address] [place] [address] Creatinine [Mass/Vol] 1.4 0.5-1.1 mg/dL High 02-22-20 [facility] (00 000) Comment: Performed By: #### [id number] #### MARCUS Urinalysis Automated [facility]gs bsection [address] [place] [address] Glucose [Mass/Vol] 165 70-99 mg/dL High 02-21-2019 [facility] (69231) Comment: Performed By: #### [id number] #### MARCUS Urinalysis Automated [facility] bsection [address] [place] [address] Potassium [Moles/Vol] 2.9 3.5-5.3 mEq/L Low 02-22-20 [facility] (00 000) Comment: Performed By: #### [id number] #### MARCUS Urinalysis Automated [facility] bsection [address] [place] [address] Sodium [Moles/Vol] 137 136-145 mEq/L Normal 02-21-2019 [facility] (00 000) Comment: Performed By: #### [id number] #### MARCUS Urinalysis Automated [facility] bsection [address] [place] [address] Urea nitrogen [Mass/Vol] 14 6-23 mg/dL Normal 02-21 [facility] (00 000) Comment: Performed By: #### [id number] #### MARCUS Urinalysis Automated [facility] bsection [address] [place] [address] Urea nitrogen/Creatinine 10.0 5.4-30.0 ratio Normal 02-21 [facility] [Mass ratio] [facility] (29212) Comment: Performed By: #### [id number] #### MARCUS Urinalysis Automated [facility] bsection [address] [place] [address] auto diff on 02-21 Basophils (Bld) [#/Vol] 0.0 0.0-0.2 E3/mcL Normal 2018 [facility] tem (29832) Comment: Order Comment: Order Added b y Discern Expert. Performed By: #### [id number] # ### MARCUS Microbiology Subsection [address] [place] [address] Basophils/100 WBC (Bld) 0.4 0.0-2.0 % Normal 2018 [facility] (00 000) Comment: Order Comment: Order Added b y Discern Expert. Performed By: #### [id number] # ### MARCUS Microbiology Subsection [address] [place] [address] Eos Absolute 0.1 0.0-0.7 E3/mcL Normal 02-21-2019 [facility] (23221) Comment: Order Comment: Order Added b y Discern Expert. Performed By: #### [id number] # ### MARCUS Microbiology Subsection [address] [place] [address] Eosinophils/100 WBC (Bld) 1.4 0.0-11.0 % Normal [facility] (00 000) Comment: Order Comment: Order Added b y Discern Expert. Performed By: #### [id number] # ### MARCUS Microbiology Subsection [address] [place] [address] Lymphocytes (Bld) [#/Vol] 1.0 1.2-3.4 E3/mcL Low [facility] (00 000) Comment: Order Comment: Order Added b y Discern Expert. Performed By: #### [id number] # ### MARCUS Microbiology Subsection [address] [place] [address] Lymphocytes/100 WBC (Bld) 24.1 20.0-55.0 % Normal [facility] tem (12937) Comment: Order Comment: Order Added b y Discern Expert. Performed By: #### [id number] # ### MARCUS Microbiology Subsection [address] [place] [address] [place] Absolute 0.5 0.0-0.7 E3/mcL Normal 02-21-2019 [facility] (93959) Comment: Order Comment: Order Added b y Discern Expert. Performed By: #### [id number] # ### MARCUS Microbiology Subsection [address] [place] [address] Monocytes/100 WBC (Bld) 10.8 0.0-10.0 % High 2018 [facility] (00 000) Comment: Order Comment: Order Added b y Discern Expert. Performed By: #### [id number] # ### MARCUS Microbiology Subsection [address] [place] [address] Neutro Absolute 2.7 1.4-6.5 E3/mcL Normal 02-21-2019 [facility] (53793) Comment: Order Comment: Order Added b y Discern Expert. Performed By: #### [id number] # ### MARCUS Microbiology Subsection [address] [place] [address] Neutro Auto 63.3 37.0-75.0 % Normal 02-21-2019 [facility] (39618) Comment: Order Comment: Order Added erma Aldana Expert. Performed By: #### [id number] # ### MARCUS Microbiology Subsection [address] [place] [address] ammonia on Ammonia (P) [Mass/Vol] 55 16-53 mcmol/L High 02-21- [facility] (00 000) Comment: Performed By: #### [id number] # ### MARCUS Microbiology Subsection [address] [place] [address] acetamnphn lvl on Acetaminoph Lvl <10 10-30 Normal 02-21-2019 [facility] (91547) Comment: Performed By: #### [id number] # ### MARCUS Microbiology Subsection [address] [place] [address] nm myocardial perfusion single - stress only on 2018-12-26 NM Nuclear Report Normal 12-26-2018 [facility] Patient: PABLO OSMAN (33748) SINGLE - Med Rec#: [id number] (Age): 1975(43y) STRESS ONLY Height: Study Date: [...] imaging protocol was followed using Tc-99m tetrofosmin ([employer]Leaseview) injected intravenously. For the stress portion of [...] on 2018-12-26 Nuclear Report 12-26-2018 [facility] (81237) Patient: PABLO OSMAN [facility] Rec#: [id number] (Age): 1975(43y ) Height: Study Date: 019 [...] RVPI Interface, Rad In Heartlab X per EchoishBowl - 12/26/2018 3:48 PM EDT Nuclear Report 12-26-2018 [facility] (50280) Patient: PABLO OSMAN [facility] Rec#: [id number] (Age): 1975(43y) Height: Study Date: 12/26/2018 Weight: [...] Chest 2 Views Exam Date/Time: Normal 019 [facility] 12/21/2018 04:05 EST [facility] Reason for Exam: (00 000) Cough Report STUDY: XR Chest 2 Views; 12/21/2018 4:05 am INDICATION: Cough. COMPARISON: 10/02/2018 ACCESSION NUMBER(S): [id number] ORDERING CLINICIAN: Bob Wick FINDINGS: No significant [...] Influenzae A Ag Negative Negative Normal 12-21-2018 [facility] (00 000) Comment: Result Comment: Test Perform ed by PCR Testing Performed By: #### [id number] #### MARCUS Urinalysis Automated Suggs bsection [address] [place] [address] Influenzae B Ag Negative Negative Normal 12-21-2018 [facility] (00 000) Comment: Result Comment: Test Perform ed by PCR Testing Performed By: #### [id number] #### MARCUS Urinalysis Automated Sug[facility] bsection [address] [place] [address] ua complete on 2018 Color (U) Minerva Yellow Abnormal 12-12-2018 [facility] (99435) Comment: Performed By: #### [id number] # ### MARCUS RemChem [address] [place] [address] Glucose (U) [Mass/Vol] Negative Negative mg/dL Normal [address] [place] [address] Sys tem (96273) Comment: Performed By: #### [id number] # ### MARCUS RemChem [address] [place] [address] Ketones Ql (U) Trace Normal 12-12-2018 [facility] (03848) Comment: Performed By: #### [id number] # ### MARCUS RemChem [address] [place] [address] RBC (U) [#/Vol] 3-5 0-3 Abnormal 12-12-2018 [facility] (21483) Comment: Performed By: #### [id number] # ### MARCUS RemChem [address] [place] [address] UA Blood 2+ Negative Abnormal 12-12-2018 [facility] (97496) Comment: Performed By: #### [id number] # ### MARCUS RemChem [address] [place] [address] UA Clarity Cloudy Clear Abnormal 12-12-2018 [facility] (56143) Comment: Performed By: #### [id number] # ### MARCSU RemChem [address] [place] [address] UA Hyal Cast 5-10 0-2 Abnormal 12-12-2018 [facility] (87872) Comment: Performed By: #### [id number] # ### MARCUS RemChem [address] [place] [address] UA Leuk Est 3+ Negative Abnormal 12-12-2018 [facility] (14711) Comment: Performed By: #### [id number] # ### MARCUS RemChem [address] [place] [address] UA Nitrite Negative Negative Normal 12-12-2018 [facility] (57991) Comment: Performed By: #### [id number] # ### MARCUS RemChem [address] [place] [address] UA pH 5.0 4.6-8.0 Normal 12-12-2018 [facility] (07127) Comment: Performed By: #### [id number] # ### MARCUS RemChem [address] [place] [address] UA Protein Negative Negative Normal 12-12-2018 [facility] (36262) Comment: Performed By: #### [id number] # ### MARCUS RemChem [address] [place] [address] UA Spec Grav 1.020 1.003-1.030 Normal 12-12-2018 [facility] (44894) Comment: Performed By: #### [id number] # ### MARCUS RemChem [address] [place] [address] UA Squam Epithelial 20-30 0-5 Abnormal 12-12-2018 [facility] (65584) Comment: Performed By: #### [id number] # ### MARCUS RemChem [address] [place] [address] UA Urobilinogen 2.0 mg/dL Abnormal 12-12-2018 [facility] (09804) Comment: Result Comment: Due to a man ufacturing issue, low positive urobilinogen results may be fasely positi ve. Correlate with urine bilirubin and additional clinical/laborato ry findings to assess the risk of hemolytic anemia or liver disease. If clinically indicated, repeat testing with an alternate method is availabl e by contacting the laboratory within 24 hours. Performed By: #### [id number] # ### MARCUS RemChem [address] [place] [address] UA WBC 10-20 0-5 Abnormal 12-12-2018 [facility] (37344) Comment: Performed By: #### [id number] # ### MARCUS RemChem [address] [place] [address] Urobilinogen Qn (U) Negative Negative Normal 12-12-2018 [facility] (00 000) Comment: Performed By: #### [id number] # ### MARCUS RemChem [address] [place] [address] u drug screen on 06-12-24 U Amph Scr Negative Negative Normal 12-12-2018 [facility] (00616) Comment: Performed By: #### [id number] # ### MARCUS RemChem [address] [place] [address] U Kalyani Scr Negative Negative Normal 12-12-2018 [facility] (79434) Comment: Performed By: #### [id number] # ### MARCUS RemChem [address] [place] [address] U Benzodia Scr Negative Negative Normal 12-12-2018 [facility] (05514) Comment: Performed By: #### [id number] # ### MARCUS RemChem [address] [place] [address] U Cannab Scr Negative Negative Normal 12-12-2018 [facility] (91565) Comment: Performed By: #### [id number] # ### MARCUS RemChem [address] [place] [address] U Cocaine Scr Negative Negative Normal 12-12-2018 [facility] (93831) Comment: Performed By: #### [id number] # ### MARCUS RemChem [address] [place] [address] U Opiate Scr Negative Negative Normal 12-12-2018 [facility] (10813) Comment: Performed By: #### [id number] # ### MARCUS RemChem [address] [place] [address] U PCP Scr Negative Negative Normal 12-12-2018 [facility] (73686) Comment: Performed By: #### [id number] # ### MARCUS JeriChem [facility] [place] [address] troponin-i on 12-12 Troponin I.cardiac .01 .00-.03 ng/mL Normal 12-12-2018 [facility] [Mass/Vol] Health [facility] (23613) Comment: Performed By: #### [id number] # ### MARCUS RemChem [address] [place] [address] magnesium on 12-12 Magnesium [Mass/Vol] 2.0 1.6-2.4 mg/dL Normal 9 [facility] (00 000) Comment: Performed By: #### [id number] # ### MARCUS RemChem [address] [place] [address] hep func panel on Albumin [Mass/Vol] 4.4 3.4-5.0 gm/dL Normal 12-12-2018 [facility] (00 000) Comment: Performed By: #### [id number] # ### MRACUS RemChem [address] [place] [address] Albumin/Globulin [Mass 1.3 1.1-1.9 ratio Normal [facility]] Health Sys tem (51303) Comment: Performed By: #### [id number] # ### MARCUS RemChem [address] [place] [address] Alk Phos 69 33-110 Int._Unit/L Normal 12-12-2018 [facility] (57914) Comment: Performed By: #### [id number] # ### MARCUSShawn WilcoxChem [address] [place] [address] ALT [Catalytic 34 7-45 Int._Unit/L Normal 12-12-2018 [facility] activity/Vol Health System (27693) Comment: Performed By: #### [id number] # ### MARCUSShawn WilcoxChem [facility] [place] [address] AST [Catalytic 69 9-39 Int._Unit/L High 12-12-2018 [facility] activity/Vol] [facility] (47484) Comment: Performed By: #### [id number] # ### MARCUS JeriChem [facility] [place] [address] Bili Direct 0.26 0.00-0.30 mg/dL Normal 12-12-2018 [facility] (03830) Comment: Performed By: #### [id number] # ### MARCUS [address] [place] [address] Bili Indirect 0.57 mg/dL Normal 12-12-2018 [facility] (06306) Comment: Result Comment: No establish ed ranges available for the indirect bilirubin Performed By: #### [id number] # ### MARCUS Jeri[address] [address] Bili Total 0.83 0.00-1.20 mg/dL Normal 12-12-2018 [facility] (17387) Comment: Performed By: #### [id number] # ### MARCUS [address] [place] [address] Globulin (S) [Mass/Vol] 3.0 2.0-4.0 G/DL Normal 2018 [facility] (00 000) Comment: Performed By: #### [id number] # ### MARCUS [address] [place] [address] Protein [Mass/Vol] 7.7 6.4-8.2 gm/dL Normal 12-12-2018 [facility] (00 000) Comment: Performed By: #### [id number] # ### MARCUS JeriSonnedix [facility] [place] [address] ethanol on Ethanol [Mass/Vol] <10 <=10 mg/dL Normal 12-12-2018 [facility] (29642) Comment: Performed By: #### [id number] # ### MARCUS JeriChem [address] [place] [address] egfr on 2018-12-12 GFR/1.73 sq M predicted 42 mL/min/1.73 m2 Normal 0 12-12-2018 [facility] among non-blacks [facility] (93016) (S/P/Bld) [Vol rate/Area] Comment: Order Comment: With T4fr Ref kurt Performed By: #### [id number] # ### MARCUS JeriSonnedix [facility] [place] [address] GFR/1.73 sq M predicted 35 mL/min/1.73 m2 Normal 0 12-12-2018 [facility] among non-blacks [facility] (46145) (S/P/Bld) [Vol rate/Area] Comment: Order Comment: With T4fr Ref kurt Performed By: #### [id number] # ### MARCUS RemSonnedix [facility] [place] [address] cbc w/ auto diff on 2018-12-12 Erythrocyte distribution 13.8 11.5-14.5 % Normal 12-12 [facility] width (RBC) [Ratio] Health System (13359) Comment: Performed By: #### [id number] # ### MARCUS WilcoxSonnedix [facility] [place] [address] Hematocrit (Bld) [Volume 44.1 36.0-48.0 % Normal 12-12 [facility] fraction] Health Sys tem (78184) Comment: Performed By: #### [id number] # ### MARCUS RemChem [address] [place] [address] Hemoglobin (Bld) 14.4 12.0-16.0 G/DL Normal 12-12-2018 [facility] [Mass/Vol] Health Sy stem (31402) Comment: Performed By: #### [id number] # ### MARCUS RemSonnedix [address] [place] [address] MCH (RBC) [Entitic mass] 30.3 27.0-31.0 pg Normal 12-12 [facility] (00 000) Comment: Performed By: #### [id number] # ### MARCUS [address] [place] [address] MCHC (RBC) [Mass/Vol] 32.7 33.0-37.0 G/DL Low 12-12-19 [facility] (00 000) Comment: Performed By: #### [id number] # ### MARCUS [address] [place] [address] MCV (RBC) [Entitic vol] 92.9 78.0-100.0 fL Normal 12-12 [facility] Sys tem (93081) Comment: Performed By: #### [id number] # ### MARCUS [address] [place] [address] Platelet mean volume 8.1 7.4-11.0 fL Normal 9 [facility] (Bld) [Entitic vol] System (08976) Comment: Performed By: #### [id number] # ### MARCUS Jeri[address] [address] Platelets (Bld) [#/Vol] 122 130-400 E3/mcL Low 2018 [facility] (00 000) Comment: Performed By: #### [id number] # ### MARCUS Wilcox[address] [address] RBC (Bld) [#/Vol] 4.75 3.90-5.40 E6/mcL Normal 12-12-2018 [facility] (00 000) Comment: Performed By: #### [id number] # ### MARCUS [address] [place] [address] WBC (Bld) [#/Vol] 6.2 3.6-11.0 E3/mcL Normal 12-12-2018 [facility] (00 000) Comment: Performed By: #### [id number] # ### MARCUS [address] [place] [address] bmp on 2018-12-12 Anion gap [Moles/Vol] 16 10-20 mEq/L Normal 12-12-19 [facility] (00 000) Comment: Performed By: #### [id number] # ### MARCUS Rem[facility] [address] [place] [address] Calcium [Mass/Vol] 9.5 8.6-10.3 mg/dL Normal 12-12-2018 [facility] () Comment: Performed By: #### [id number] # ### MARCUS Rem[facility] [address] [place] [address] Chloride [Moles/Vol] 105 98-107 mEq/L Normal 9 [facility] () Comment: Performed By: #### [id number] # ### MARCUS Rem[facility] [address] [place] [address] CO2 [Moles/Vol] 20.0 21.0-32.0 mEq/L Low 12-12-2018 [facility] (25540) Comment: Performed By: #### [id number] # ### MARCUS Rem[facility] [address] [place] [address] Creatinine [Mass/Vol] 1.6 0.5-1.1 mg/dL High 12-12-19 19 [facility] () Comment: Performed By: #### [id number] # ### MARCUS [facility] [address] [place] [address] Glucose [Mass/Vol] 150 70-99 mg/dL High 12-12-2018 [facility] (61188) Comment: Performed By: #### [id number] # ### MARCUS Rem[facility] [address] [place] [address] Potassium [Moles/Vol] 4.4 3.5-5.3 mEq/L Normal 12-12-19 19 [facility] (00 000) Comment: Performed By: #### [id number] # ### MARCUS [facility] [address] [place] [address] Sodium [Moles/Vol] 137 136-145 mEq/L Normal 12-12-2018 [facility] () Comment: Performed By: #### [id number] # ### MARCUS Rem[facility] [address] [place] [address] Urea nitrogen [Mass/Vol] 27 6-23 mg/dL High 12-12 [facility] (00 000) Comment: Performed By: #### [id number] # ### MARCUS WilcoxSonnedix [address] [place] [address] Urea nitrogen/Creatinine 16.9 5.4-30.0 ratio Normal 12-12 [facility] [Mass ratio] [facility] (21908) Comment: Performed By: #### [id number] # ### MARCUS WilcoxSonnedix [address] [place] [address] auto diff on 12-12 Basophils (Bld) [#/Vol] 0.0 0.0-0.2 E3/mcL Normal 2018 [facility] Sys tem (85648) Comment: Order Comment: With T4fr Ref kurt Performed By: #### [id number] # ### MARCUS WilcoxSonnedix [facility] [place] [address] Basophils/100 WBC (Bld) 0.4 0.0-2.0 % Normal 2018 [facility] (00 000) Comment: Order Comment: With T4fr Ref kurt Performed By: #### [id number] # ### MARCUS WilcoxSonnedix [address] [place] [address] Eos Absolute 0.0 0.0-0.7 E3/mcL Normal 12-12-2018 [facility] (89439) Comment: Order Comment: With T4fr Ref kurt Performed By: #### [id number] # ### MARCUS WilcoxSonnedix [facility] [place] [address] Eosinophils/100 WBC (Bld) 0.1 0.0-11.0 % Normal 11-19 [facility] (00 000) Comment: Order Comment: With T4fr Ref kurt Performed By: #### [id number] # ### MARCUS WilcoxSonnedix [facility] [place] [address] Lymphocytes (Bld) [#/Vol] 0.6 1.2-3.4 E3/mcL Low 11-19 [facility] (00 000) Comment: Order Comment: With T4fr Ref kurt Performed By: #### [id number] # ### MARCUS Seva Search [facility] [place] [address] Lymphocytes/100 WBC (Bld) 9.6 20.0-55.0 % Low 11-19 [facility] (00 000) Comment: Order Comment: With T4fr Ref kurt Performed By: #### [id number] # ### MARCUS [facility] [address] [place] [address] [place] Absolute 0.6 0.0-0.7 E3/mcL Normal 12-12-2018 [facility] (07494) Comment: Order Comment: With T4fr Ref kurt Performed By: #### [id number] # ### MARCUS Jeri[facility]5 [place] [address] Monocytes/100 WBC (Bld) 9.4 0.0-10.0 % Normal 2018 [facility] (00 000) Comment: Order Comment: With T4fr Ref kurt Performed By: #### [id number] # ### MARCUS [employer] [address] [place] [address] Neutro Absolute 5.0 1.4-6.5 E3/mcL Normal 12-12-2018 [facility] (25394) Comment: Order Comment: With T4fr Ref kurt Performed By: #### [id number] # ### MARCUS [employer] [address] [place] [address] Neutro Auto 80.5 37.0-75.0 % High 12-12-2018 [facility] (68761) Comment: Order Comment: With T4fr Ref kurt Performed By: #### [id number] # ### MARCUS [facility] [address] [place] [address] ua complete on 2018 Color (U) Yellow Yellow Normal 12-03-2018 [facility] (87436) Comment: Performed By: #### [id number] #### MARCUS RemChem [facility] [place] [address] Glucose (U) [Mass/Vol] Negative Negative mg/dL Normal 019 [facility] tem (90048) Comment: Performed By: #### [id number] #### MARCUS Rem[employer] [address] [place] [address] Ketones Ql (U) Negative Negative Normal 12-03-2018 [facility] (17495) Comment: Performed By: #### [id number] #### MARCUS WilcoxChem [address] [place] [address] RBC (U) [#/Vol] 3-5 0-3 Abnormal 12-03-2018 [facility] (42175) Comment: Performed By: #### [id number] #### MARCUSShawn WilcoxChem [address] [place] [address] UA Blood Negative Negative Normal 12-03-2018 [facility] (98766) Comment: Performed By: #### [id number] #### MARCUSShawn WilcoxChem [address] [place] [address] UA Bacteria 1+ None /HPF Abnormal 12-03-2018 [facility] (54909) Comment: Performed By: #### [id number] #### MARCUSShawn WilcoxChem [address] [place] [address] UA Clarity SltCloudy Clear Abnormal 12-03-2018 [facility] (52406) Comment: Performed By: #### [id number] #### MARCUSShawn WilcoxChem [address] [place] [address] UA Leuk Est Trace Negative Normal 12-03-2018 [facility] (45088) Comment: Performed By: #### [id number] #### MARCUS Rem[employer] [address] [place] [address] UA Nitrite Negative Negative Normal 12-03-2018 [facility] (73999) Comment: Performed By: #### [id number] #### MARCUSShawn WilcoxChem [address] [place] [address] UA pH 6.0 4.6-8.0 Normal 12-03-2018 [facility] (23803) Comment: Performed By: #### [id number] #### MARCUS Rem[employer] [address] [place] [address] UA Protein Negative Negative Normal 12-03-2018 [facility] (20357) Comment: Performed By: #### [id number] #### MARCUS Rem[facility] [address] [place] [address] UA Spec Grav 1.016 1.003-1.030 Normal 12-03-2018 [facility] (87691) Comment: Performed By: #### [id number] #### MARCUS Rem[employer] [address] [place] [address] UA Squam Epithelial 10-20 0-5 Abnormal 12-03-2018 [facility] (44985) Comment: Performed By: #### [id number] #### MARCUS Zelaya [facility] [place] [address] UA Urobilinogen Negative Normal 12-03-2018 [facility] (04285) Comment: Result Comment: Due to a man ufacturing issue, low positive urobilinogen results may be fasely positi ve. Correlate with urine bilirubin and additional clinical/laborato ry findings to assess the risk of hemolytic anemia or liver disease. If clinically indicated, repeat testing with an alternate method is availabl e by contacting the laboratory within 24 hours. Performed By: #### [id number] #### MARCUS WilcoxSonnedix [facility] [place] [address] UA WBC 5-10 0-5 Abnormal 12-03-2018 [facility] (73870) Comment: Performed By: #### [id number] #### MARCUS WilcoxSonnedix [facility]5 [place] [address] Urobilinogen Qn (U) Negative Negative Normal 12-03-2018 [facility] (00 000) Comment: Performed By: #### [id number] #### MARCUS WilcoxSonnedix [address] [place] [address] u bhcg qlt on 12-03 HCG.beta subunit Qn Neg Neg m[IU]/mL Normal 12-03-2018 [facility] (00 000) Comment: Performed By: #### [id number] #### MARCUSShawn WilcoxSonnedix [facility] [place] [address] lipase level on 201 06-19-16 Lipase Lvl 38 9-82 Int._Unit/L Normal 12-03-2018 [facility] (37496) Comment: Performed By: #### [id number] #### MARCUS WilcoxSonnedix [facility]5 [place] [address] egfr on 2018-12-03 GFR/1.73 sq M predicted 56 mL/min/1.73 m2 Normal 0 12-03-2018 [facility] among non-blacks [facility] (79804) (S/P/Bld) [Vol rate/Area] Comment: Order Comment: Order added erma Aldana Expert. Performed By: #### [id number] #### MARCUS RemSonnedix [address] [place] [address] GFR/1.73 sq M predicted 46 mL/min/1.73 m2 Normal 0 12-03-2018 [facility] among non-blacks [facility] (89202) (S/P/Bld) [Vol rate/Area] Comment: Order Comment: Order added erma Aldana Expert. Performed By: #### [id number] #### MARCUS RemSonnedix [address] [place] [address] ct abdomen/pelvis w/o contrast on 2018-12-03 CT Abdomen/Pelvis w/o Exam Date/Time: Normal [facility] Contrast 12/03/2018 00:08 EST [facility] Reason for Exam: Sys tem (84087) Pain Report STUDY: CT Abdomen/Pelvis w/o Contrast; 12/03/2018 12:08 am INDICATION: Pain. COMPARISON: 09/22/2018 ACCESSION NUMBER(S): [id number] ORDERING CLINICIAN: Heidy Lane TECHNIQUE: Axial noncontrast [...] Albumin [Mass/Vol] 3.6 3.4-5.0 gm/dL Normal 12-03-2018 [facility] (00 000) Comment: Performed By: #### [id number] #### MARCUS Rem[facility] [address] [place] [address] Albumin/Globulin [Mass 1.5 1.1-1.9 ratio Normal [address] [place] [address] Health Sys tem (95654) Comment: Performed By: #### [id number] #### MARCUS Rem[facility] [address] [place] [address] Alk Phos 69 33-110 Int._Unit/L Normal 12-03-2018 [facility] (48114) Comment: Performed By: #### [id number] #### MARCUS Rem[facility] [address] [place] [address] ALT [Catalytic 13 7-45 Int._Unit/L Normal 12-03-2018 [facility] (11303) Comment: Performed By: #### [id number] #### MARCUS Rem[employer] [address] [place] [address] Anion gap [Moles/Vol] 12 10-20 mEq/L Normal 12-03-19 19 [facility] (00 000) Comment: Performed By: #### [id number] #### MARCUS Rem[facility] [address] [place] [address] AST [Catalytic 19 9-39 Int._Unit/L Normal 12-03-2018 [facility] (17306) Comment: Performed By: #### [id number] #### MRACUS RemChem [address] [place] [address] Bili Total 0.35 0.00-1.20 mg/dL Normal 12-03-2018 [facility] (31692) Comment: Performed By: #### [id number] #### MARCUS Rem[facility] [address] [place] [address] Calcium [Mass/Vol] 8.3 8.6-10.3 mg/dL Low 12-03-2018 [facility] (00079) Comment: Performed By: #### [id number] #### MARCUS Rem[facility] [address] [place] [address] Chloride [Moles/Vol] 110 98-107 mEq/L High [facility] () Comment: Performed By: #### [id number] #### MARCUS Rem[facility] [address] [place] [address] CO2 [Moles/Vol] 22.0 21.0-32.0 mEq/L Normal 12-03-2018 [facility] () Comment: Performed By: #### [id number] #### MARCUS [facility] [address] [place] [address] Creatinine [Mass/Vol] 1.3 0.5-1.1 mg/dL High 12-03-19 [facility] (00 000) Comment: Performed By: #### [id number] #### MARCUS Rem[facility] [address] [place] [address] Globulin (S) [Mass/Vol] 2.0 2.0-4.0 G/DL Normal 2018 [facility] ( 000) Comment: Performed By: #### [id number] #### MARCUS [facility] [address] [place] [address] Glucose [Mass/Vol] 133 70-99 mg/dL High 12-03-2018 [facility] (51423) Comment: Performed By: #### [id number] #### MARCUS Rem[facility] [address] [place] [address] Potassium [Moles/Vol] 4.2 3.5-5.3 mEq/L Normal 12-03-19 [facility] (00 000) Comment: Performed By: #### [id number] #### MARCUS [facility] [address] [place] [address] Protein [Mass/Vol] 6.0 6.4-8.2 gm/dL Low 12-03-2018 [facility] (52764) Comment: Performed By: #### [id number] #### MARCUS JeriSonnedix [facility] [place] [address] Sodium [Moles/Vol] 140 136-145 mEq/L Normal 12-03-2018 [facility] (00 000) Comment: Performed By: #### [id number] #### MARCUS [place] [address] [place] [address] Urea nitrogen [Mass/Vol] 9 6-23 mg/dL Normal 12-03 [facility] (00 000) Comment: Performed By: #### [id number] #### MARCUS [place] [address] [place] [address] Urea nitrogen/Creatinine 6.9 5.4-30.0 ratio Normal 12-03 [facility] [Mass ratio] [facility] (55128) Comment: Performed By: #### [id number] #### MARCUS Jeri[address] [address] cbc w/ auto diff on 2018-12-03 Erythrocyte distribution 12.9 11.5-14.5 % Normal 12-03 [facility] width (RBC) [Ratio] Health System (13060) Comment: Performed By: #### [id number] #### MARCUS Wilcox[address] [address] Hematocrit (Bld) [Volume 42.4 36.0-48.0 % Normal 12-03 [facility] fraction] Health Sys tem (12876) Comment: Performed By: #### [id number] #### MARCUSShawn [address] [address] [place] [address] Hemoglobin (Bld) 14.1 12.0-16.0 G/DL Normal 12-03-2018 [facility] [Mass/Vol] Health Sy stem (77353) Comment: Performed By: #### [id number] #### MARCUS [address] [place] [address] MCH (RBC) [Entitic mass] 30.5 27.0-31.0 pg Normal 12-03 [facility] (00 000) Comment: Performed By: #### [id number] #### MARCUS Zelaya [facility]5 [place] [address] MCHC (RBC) [Mass/Vol] 33.3 33.0-37.0 G/DL Normal 12-03-19 19 [facility] (00 000) Comment: Performed By: #### [id number] #### MARCUS Zelaya [address] [place] [address] MCV (RBC) [Entitic vol] 91.5 78.0-100.0 fL Normal 12-03 [facility] tem (98100) Comment: Performed By: #### [id number] #### MARCUS Zelaya [facility] [place] [address] Platelet mean volume (Bld) 7.2 7.4-11.0 fL Low [facility] [Entitic vol] System (30741) Comment: Performed By: #### [id number] #### MARCUS Wilcox[address] [address] Platelets (Bld) [#/Vol] 121 130-400 E3/mcL Low 2018 [facility] (00 000) Comment: Performed By: #### [id number] #### MARCUS Wilcox[address] [address] RBC (Bld) [#/Vol] 4.64 3.90-5.40 E6/mcL Normal 12-03-2018 [facility] (00 000) Comment: Performed By: #### [id number] #### MARC[place] [address] [place] [address] [place] [address] WBC (Bld) [#/Vol] 4.5 3.6-11.0 E3/mcL Normal 12-03-2018 [facility] (00 000) Comment: Performed By: #### [id number] #### MARCUS Zelaya [facility] [place] [address] auto diff on 2019-0 2-16 Basophils (Bld) [#/Vol] 0.0 0.0-0.2 E3/mcL Normal 2018 [facility] tem (77824) Comment: Order Comment: Order added b y Discern Expert. Performed By: #### [id number] #### MARCUS WilcoxSonnedix [facility] [place] [address] Basophils/100 WBC (Bld) 0.6 0.0-2.0 % Normal 2018 [facility] (00 000) Comment: Order Comment: Order added b y Discern Expert. Performed By: #### [id number] #### MARCUS JeriSonnedix [address] [place] [address] Eos Absolute 0.1 0.0-0.7 E3/mcL Normal 12-03-2018 [facility] (28848) Comment: Order Comment: Order added b y Discern Expert. Performed By: #### [id number] #### [facility] JeriSonned[facility] [address] [place] [address] Eosinophils/100 WBC (Bld) 2.6 0.0-11.0 % Normal 11-18 [facility] (00 000) Comment: Order Comment: Order added b y Discern Expert. Performed By: #### [id number] #### [facility] Se[employer] [address] [place] [address] Lymphocytes (Bld) [#/Vol] 1.2 1.2-3.4 E3/mcL Normal 11-18 [facility] tem (63196) Comment: Order Comment: Order added b y Discern Expert. Performed By: #### [id number] #### MARCUS WilcoxSonnedix [address] [place] [address] Lymphocytes/100 WBC (Bld) 27.2 20.0-55.0 % Normal 11-18 [facility] (03669) Comment: Order Comment: Order added b y Discern Expert. Performed By: #### [id number] #### [facility] Se[employer] [address] [place] [address] [place] Absolute 0.3 0.0-0.7 E3/mcL Normal 12-03-2018 [facility] (19574) Comment: Order Comment: Order added b y Discern Expert. Performed By: #### [id number] #### MARCUS Se[facility] [place] [address] Monocytes/100 WBC (Bld) 7.7 0.0-10.0 % Normal 2018 [facility] (00 000) Comment: Order Comment: Order added erma Aldana Expert. Performed By: #### [id number] #### MARCUS WilcoxChem [address] [place] [id number] Neutro Absolute 2.8 1.4-6.5 E3/mcL Normal 12-03-2018 [facility] (53885) Comment: Order Comment: Order added erma Aldana Expert. Performed By: #### [id number] #### MARCUS Zelaya [address] [place] [id number] Neutro Auto 61.9 37.0-75.0 % Normal 12-03-2018 [facility] (67928) Comment: Order Comment: Order added erma Aldana Expert. Performed By: #### [id number] #### MARCUS Zelaya [address] [place] [address] ct head or brain w/ + w/o contrast on 2018-12-01 CT Head or Brain Exam Date/Time: Normal 019 [facility] w/ + w/o Contrast 12/01/2018 12:05 [facility] Reason for Exam: (00 000) ABN GAIT Report STUDY: CT Head or Brain w/ + w/o Contrast; 12/01/2018 12:05 pm INDICATION: ABN GAIT. COMPARISON: 04/29/2016 ACCESSION NUMBER(S): [id number] ORDERING CLINICIAN: Ana Hodge TECHNIQUE: Axial images [...] negative (000 00) Comment: Performed By: #### [id number] #### MARCUS [facility] [address] [place] [address] lipid panel on 2018 Cholesterol in HDL mass 43 40-59 mg/dL Normal 2018 [facility] (07245) Comment: Performed By: #### GLUX #### Unless otherwise noted, [facility] [address] [facility] [place] [address] CLIA: [id number] Entry Examiner: Ismael vines M.D. Cholesterol in LDL mass 163 10-150 mg/dL High 2018 [facility] (73268) Comment: Performed By: #### GLUX #### Unless otherwise noted, all testing performed by [facility] [address] [facility] [place] [address] CLIA: [id number] Entry Examiner: Ismael vines M.D. Cholesterol in VLDL mass 41 5-40 mg/dL High 11-22 [facility] (96713) Comment: Performed By: #### GLUX #### Unless otherwise noted, all testing performed by [facility] [address] [place] [address] CLIA: [id number] Entry Examiner: Ismael vines M.D. Cholesterol mass conc 247 100-199 mg/dL High 11-22-19 19 [facility] (13205) Comment: Performed By: #### GLUX #### Unless otherwise noted, all testing performed by [facility] l [address] [facility]. [place] [address] CLIA: [id number] Entry Examiner: Ismael vines M.D. Cholesterol.total/Cholesterol in HDL 5.7 3.2-5.0 Hig h 11-22-2018 [facility] mass [facility] (90997) Comment: Result Comment: Female Coron xavier Heart Disease Risk Factor (CHDRF): Average risk= 4.4 1/2 Average risk= 3.3 2 times Average risk= 7.1 Performed By: #### GLUX #### Unless otherwise noted, all testing performed by [facility] [address] [facility]. [place] [address] CLIA: [id number] Entry Examiner: Ismael vines M.D. Triglyceride mass conc 206 30-150 mg/dL High 019 [facility] (03459) Comment: Performed By: #### GLUX #### Unless otherwise noted, all testing performed by [address] [place] [address] CLIA: [id number] Entry Examiner: Ismael vines M.D. No panel information on 2018-11-22 Cholesterol in HDL mass conc 43 40 - 59 mg/dL 0 11-22-2018 [facility] (35754) Cholesterol in LDL mass conc 163 10 - 150 mg/dL High 0 11-22-2018 [facility] (56238) Cholesterol in VLDL mass conc 41 5 - 40 mg/dL High 11-22-2018 [facility] (04287) Cholesterol mass conc 247 100 - 199 mg/dL High 11-22-19 19 [facility] (03729) Cholesterol.total/Cholesterol 5.7 OTH - OTH High 11-22-2018 [facility] (71737) in HDL mass ratio Comment: Female Coronary Heart Diseas e Risk Factor (CHDRF): Average risk= 4.4 1/2 Average risk= 3.3 2 times Average risk= 7.1 Interpretation and review Abnormal [facility] (10208) of laboratory results Triglyceride mass conc 206 30 - 150 mg/dL High 019 [facility] (14540) zzplt morph on 2018 Platelet morphology finding ENLARGED Normal [facility] Nom (d) System (00 000) Comment: Performed By: #### [id number] # ### MARCUS [facility] [address] [place] [address] Platelets (Bld) [#/Vol] DECREASED Normal 2018 [facility] (00 000) Comment: Performed By: #### [id number] # ### MARCUS [facility] [address] [place] [address] ua complete on 2018 Color (U) Straw Yellow Normal 11-17-2018 [facility] (89749) Comment: Performed By: #### [id number] # ### MARCUS [facility] [address] [place] [address] Glucose (U) [Mass/Vol] Negative Negative mg/dL Normal 019 [facility] Sys tem (70962) Comment: Performed By: #### [id number] # ### MARCUS [facility] [address] [place] [address] Ketones Ql (U) Negative Negative Normal 11-17-2018 [facility] (85226) Comment: Performed By: #### [id number] # ### MARCUS [facility] [address] [place] [address] UA Blood Negative Negative Normal 11-17-2018 [facility] (11153) Comment: Performed By: #### [id number] # ### MARCUS [facility] [address] [place] [address] UA Clarity Clear Clear Normal 11-17-2018 [facility] (40799) Comment: Performed By: #### [id number] # ### MARCUS [facility] [address] [place] [address] UA Leuk Est Negative Negative Normal 11-17-2018 [facility] (60547) Comment: Performed By: #### [id number] # ### MARCUS [facility] [address] [place] [address] UA Nitrite Negative Negative Normal 11-17-2018 [facility] (92890) Comment: Performed By: #### [id number] # ### MARCUS WilcoxChem [address] [place] [address] UA pH 6.0 4.6-8.0 Normal 11-17-2018 [facility] (36316) Comment: Performed By: #### [id number] # ### MARCUS [facility] [address] [place] [address] UA Protein Negative Negative Normal 11-17-2018 [facility] (44532) Comment: Performed By: #### [id number] # ### MARCUS [facility] [address] [place] [address] UA Spec Grav 1.009 1.003-1.030 Normal 11-17-2018 [facility] (20298) Comment: Performed By: #### [id number] # ### MARCUS RemChem [facility] [place] [address] UA Squam Epithelial 0-5 0-5 Normal 11-17-2018 [facility] (10320) Comment: Performed By: #### [id number] # ### MARCUS [facility] [address] [place] [address] UA Urobilinogen Negative Normal 11-17-2018 [facility] (00711) Comment: Result Comment: Due to a man ufacturing issue, low positive urobilinogen results may be fasely positi ve. Correlate with urine bilirubin and additional clinical/laborato ry findings to assess the risk of hemolytic anemia or liver disease. If clinically indicated, repeat testing with an alternate method is availabl e by contacting the laboratory within 24 hours. Performed By: #### [id number] # ### MARCUS [facility] [address] [place] [address] UA WBC 0-5 0-5 Normal 11-17-2018 [facility] (30325) Comment: Performed By: #### [id number] # ### MARCUS [facility] [address] [place] [address] Urobilinogen Qn (U) Negative Negative Normal 11-17-2018 [facility] (00 000) Comment: Performed By: #### [id number] # ### MARCUS Zelaya [address] [place] [address] u bhcg qlt on 11-17 HCG.beta subunit Qn Neg Neg m[IU]/mL Normal 11-17-2018 [facility] (00 000) Comment: Performed By: #### [id number] # ### MARCUS Zelaya [facility] [place] [address] morph on 2018-11-17 RBC morphology finding Nom NORMAL Normal [facility] (Bld) System (00 000) Comment: Order Comment: Order Added b y Discern Expert. Performed By: #### [id number] # ### MARCUS Zelaya [facility] [place] [address] lipase level on 201 06-18-31 Lipase Lvl 48 9-82 Int._Unit/L Normal 11-17-2018 [facility] (89185) Comment: Performed By: #### [id number] # ### MARCUS [address] [address] hep func panel on 2 Albumin [Mass/Vol] 3.8 3.4-5.0 gm/dL Normal 11-17-2018 [facility] (00 000) Comment: Performed By: #### [id number] # ### MARCUS [address] [place] [address] Albumin/Globulin [Mass 1.8 1.1-1.9 ratio Normal [address] [place] [address]] Health Sys tem (11142) Comment: Performed By: #### [id number] # ### MARCUS Nathalie [facility] [place] [address] Alk Phos 59 33-110 Int._Unit/L Normal 11-17-2018 [facility] (67129) Comment: Performed By: #### [id number] # ### MARCUS Jeri[facility] [address] [place] [address] ALT [Catalytic 18 7-45 Int._Unit/L Normal 11-17-2018 [facility] activity/Vol] Health System (14528) Comment: Performed By: #### [id number] # ### MARCUSShawn WilcoxChem [address] [place] [address] AST [Catalytic 28 9-39 Int._Unit/L Normal 11-17-2018 [facility] activity/[facility] (62984) Comment: Performed By: #### [id number] # ### MARCUS [address] [place] [address] Bili Direct 0.07 0.00-0.30 mg/dL Normal 11-17-2018 [facility] (58170) Comment: Performed By: #### [id number] # ### MARCUS Zelaya [facility] [place] [address] Bili Indirect 0.38 mg/dL Normal 11-17-2018 [facility] (20256) Comment: Result Comment: No establish ed ranges available for the indirect bilirubin Performed By: #### [id number] # ### MARCUSShawn Zelaya [address] [place] [address] Bili Total 0.45 0.00-1.20 mg/dL Normal 11-17-2018 [facility] (56308) Comment: Performed By: #### [id number] # ### MARCUSShawn Zelaya [address] [place] [address] Globulin (S) [Mass/Vol] 2.0 2.0-4.0 G/DL Normal 2018 [facility] (00 000) Comment: Performed By: #### [id number] # ### MARCUSShawn Wilcox[address] [address] Protein [Mass/Vol] 5.9 6.4-8.2 gm/dL Low 11-17-2018 [facility] (08345) Comment: Performed By: #### [id number] # ### [facility] [address] [place] [address] egfr on 2018-11-17 GFR/1.73 sq M predicted 56 mL/min/1.73 m2 Normal 0 11-17-2018 [facility] among non-blacks MDRD [facility] (08065) (S/P/Bld) [Vol rate/Area] Comment: Order Comment: Order added b y Discern Expert. Performed By: #### [id number] # ### MARCUSShawn [address] [address] [place] [address] GFR/1.73 sq M predicted 46 mL/min/1.73 m2 Normal 0 11-17-2018 [facility] among non-blacks [facility] (42734) (S/P/Bld) [Vol rate/Area] Comment: Order Comment: Order added b y Discern Expert. Performed By: #### [id number] # ### MARCUSShawn Zelaya [address] [place] [address] cbc w/ auto diff on 2018-11-17 Erythrocyte distribution 13.2 11.5-14.5 % Normal 11-17 [facility] width (RBC) [Ratio] Health System (79133) Comment: Performed By: #### [id number] # ### MARCUS JeriChem [facility] [place] [address] Hematocrit (Bld) [Volume 41.0 36.0-48.0 % Normal 11-17 [facility] fraction] Health Sys tem (25672) Comment: Performed By: #### [id number] # ### MARCUS JeriChem [facility] [place] [address] Hemoglobin (Bld) 13.8 12.0-16.0 G/DL Normal 11-17-2018 [facility] [Mass/Vol] Health Sy stem (60637) Comment: Performed By: #### [id number] # ### MARCUS JeriChem [address] [place] [address] MCH (RBC) [Entitic mass] 30.9 27.0-31.0 pg Normal 11-17 [facility] (00 000) Comment: Performed By: #### [id number] # ### MARCUS RemChem [address] [place] [address] MCHC (RBC) [Mass/Vol] 33.6 33.0-37.0 G/DL Normal 11-17-19 19 [facility] (00 000) Comment: Performed By: #### [id number] # ### MARCUS RemChem [address] [place] [address] MCV (RBC) [Entitic vol] 91.9 78.0-100.0 fL Normal 11-17 [facility] Sys tem (25120) Comment: Performed By: #### [id number] # ### MARCUS JeriChem [address] [place] [address] Platelet mean volume 7.6 7.4-11.0 fL Normal 9 [facility] (Bld) [Entitic vol] System (60828) Comment: Performed By: #### [id number] # ### MARCUS [employer] [address] [place] [address] Platelets (Bld) [#/Vol] 82 130-400 E3/mcL Low 2018 [facility] (00 000) Comment: Performed By: #### [id number] # ### MARCUS JeriSonnedix [facility] [place] [address] RBC (Bld) [#/Vol] 4.46 3.90-5.40 E6/mcL Normal 11-17-2018 [facility] ( 000) Comment: Performed By: #### [id number] # ### MARCUS WilcoxSonnedix [facility] [place] [address] WBC (Bld) [#/Vol] 4.2 3.6-11.0 E3/mcL Normal 11-17-2018 [facility] ( 000) Comment: Performed By: #### [id number] # ### MARCUS JeriSonnedix [facility] [place] [address] bmp on 2018-11-17 Anion gap [Moles/Vol] 11 10-20 mEq/L Normal 11-17-19 19 [facility] ( 000) Comment: Performed By: #### [id number] # ### MARCUS WilcoxSonnedix [address] [place] [address] Calcium [Mass/Vol] 8.7 8.6-10.3 mg/dL Normal 11-17-2018 [facility] ( 000) Comment: Performed By: #### [id number] # ### MARCUS JeriSonnedix [address] [place] [address] Chloride [Moles/Vol] 108 98-107 mEq/L High 9 [facility] ( 000) Comment: Performed By: #### [id number] # ### MARCUS RemSonnedix [address] [place] [address] CO2 [Moles/Vol] 21.0 21.0-32.0 mEq/L Normal 11-17-2018 [facility] (00 000) Comment: Performed By: #### [id number] # ### MARCUS JeriChem [address] [place] [address] Creatinine [Mass/Vol] 1.2 0.5-1.1 mg/dL High 11-17-19 19 [facility] (00 000) Comment: Performed By: #### [id number] # ### MARCUS [employer] [address] [place] [address] Glucose [Mass/Vol] 103 70-99 mg/dL High 11-17-2018 [facility] (77871) Comment: Performed By: #### [id number] # ### MARCUS [employer] [address] [place] [address] Potassium [Moles/Vol] 3.7 3.5-5.3 mEq/L Normal 11-17-19 19 [facility] (00 000) Comment: Performed By: #### [id number] # ### MARCUS Jeri[employer] [facility] [place] [address] Sodium [Moles/Vol] 136 136-145 mEq/L Normal 11-17-2018 [facility] (00 000) Comment: Performed By: #### [id number] # ### MARCUS [employer] [address] [place] [address] Urea nitrogen [Mass/Vol] 15 6-23 mg/dL Normal 11-17 [facility] (00 000) Comment: Performed By: #### [id number] # ### MARCUS JeriChem [address] [place] [address] Urea nitrogen/Creatinine 12.5 5.4-30.0 ratio Normal 11-17 [facility] [Mass ratio] [facility] (19709) Comment: Performed By: #### [id number] # ### MARCUS [employer] [address] [place] [address] auto diff on 11-17 Basophils (Bld) [#/Vol] 0.0 0.0-0.2 E3/mcL Normal 2018 [facility] Sys tem (60719) Comment: Order Comment: Order Added b y Discern Expert. Performed By: #### [id number] # ### MARCUS WilcoxChem [address] [place] [address] Basophils/100 WBC (Bld) 0.3 0.0-2.0 % Normal 2018 [facility] (00 000) Comment: Order Comment: Order Added erma Aldana Expert. Performed By: #### [id number] # ### MARCUS WilcoxChem [address] [place] [address] Eos Absolute 0.1 0.0-0.7 E3/mcL Normal 11-17-2018 [facility] (32173) Comment: Order Comment: Order Added b y Discern Expert. Performed By: #### [id number] # ### MARCUS JeriChem [address] [place] [address] Eosinophils/100 WBC (Bld) 2.4 0.0-11.0 % Normal 10-20 [facility] (00 000) Comment: Order Comment: Order Added erma Aldana Expert. Performed By: #### [id number] # ### MARCUS JeriSonnedix [address] [place] [address] Lymphocytes (Bld) [#/Vol] 1.2 1.2-3.4 E3/mcL Normal 10-20 [facility] tem (10237) Comment: Order Comment: Order Added erma Aldana Expert. Performed By: #### [id number] # ### MARCUS WilcoxChem [address] [place] [address] Lymphocytes/100 WBC (Bld) 27.6 20.0-55.0 % Normal 10-20 [facility] (67690) Comment: Order Comment: Order Added erma lizama Discern Expert. Performed By: #### [id number] # ### MARCUS RemChem [address] [place] [address] [place] Absolute 0.4 0.0-0.7 E3/mcL Normal 11-17-2018 [facility] (33443) Comment: Order Comment: Order Added b y Discern Expert. Performed By: #### [id number] # ### MARCUS RemChem [address] [place] [address] Monocytes/100 WBC (Bld) 8.8 0.0-10.0 % Normal 2018 [facility] (00 000) Comment: Order Comment: Order Added erma Aldana Expert. Performed By: #### [id number] # ### MARCUS Zelaya [facility]5 [place] [id number] Neutro Absolute 2.5 1.4-6.5 E3/mcL Normal 11-17-2018 [facility] (71141) Comment: Order Comment: Order Added erma Aldana Expert. Performed By: #### [id number] # ### MARCUS Zelaya [address] [place] [address] Neutro Auto 60.4 37.0-75.0 % Normal 11-17-2018 [facility] (50684) Comment: Order Comment: Order Added erma Aldana Expert. Performed By: #### [id number] # ### MARCUS [place] [id number] lab miscellaneous o n 2018-10-28 Status See Ref Lab Report Normal 10-28-2018 [facility] (78066) Comment: Performed By: #### [id number] # ### MARCUS Kostascorky [address] [place], [place] [address] zzplt morph on 2018 Platelet morphology finding NORMAL Normal [facility] System (00 000) Comment: Performed By: #### [id number] # ### MARCUS Kenyoncorky [facility] [place] [id number] Platelets (d) [#/Vol] DECREASED Normal 2018 [facility] (00 000) Comment: Performed By: #### [id number] # ### MARCUS Kostascorky [address] [place], [place] [address] valproic acid on 05-11-08 Valpro Acid Lvl 91 50-100 microgram/mL Normal 10-26-2018 [facility] (00 000) Comment: Performed By: #### [id number] # ### MARCUS Kostaso [address] [place], [place] [address] manual diff on 2018 Band form neutrophils/100 WBC 1 0-1 Normal 10-26-2018 [facility] (d) System (00 000) Comment: Order Comment: Order Added erma Aldana Expert. Performed By: #### [id number] # ### MARCUS WilcoxHemo [address] [place] [address] Basophil Man 0 0-1 % Normal 10-26-2018 [facility] (85026) Comment: Order Comment: Order Added b dl Discern Expert. Performed By: #### [id number] # ### MARCUS WilcoxHemo [address] [place] [address] Eosinophils/100 WBC (Bld) 3 0-5 % Normal [facility] (15991) Comment: Order Comment: Order Added b y Discern Expert. Performed By: #### [id number] # ### MARCUS WilcoxHemo [address] [place] [address] Lymphocytes/100 WBC (Bld) 37 14-48 % Normal [facility] (00 000) Comment: Order Comment: Order Added b y Discern Expert. Performed By: #### [id number] # ### MARCUS JeriHemo [address] [place] [address] Monocyte Man 8 1-11 % Normal 10-26-2018 [facility] (62338) Comment: Order Comment: Order Added b y Discern Expert. Performed By: #### [id number] # ### MARCUS JeriHemo [address] [place] [address] RBC morphology finding Nom NORMAL Normal [facility] ([facility] System (00 000) Comment: Order Comment: Order Added b y Discern Expert. Performed By: #### [id number] # ### MARCUS JeriHemo [address] [place] [address] Segs Man 51 37-75 % Normal 10-26-2018 [facility] (30284) Comment: Order Comment: Order Added b y Discern Expert. Performed By: #### [id number] # ### MARCUS JeriHemo [address] [place] [address] lab miscellaneous o n 2018-10-26 Test Name topamax Normal 10-26-2018 [facility] (66707) Comment: Performed By: #### [id number] # ### MARCUS JeriHemo [address] [place] [address] egfr on 2018-10-26 GFR/1.73 sq M predicted 45 mL/min/1.73 m2 Normal 0 10-26-2018 [facility] among non-blacks MDRD [facility] (13237) (S/P/Bld) [Vol rate/Area] Comment: Order Comment: Order Added erma y Katya Expert. Performed By: #### [id number] # ### MARCUS Kenyono [facility]5 [place] [address] GFR/1.73 sq M predicted 37 mL/min/1.73 m2 Normal 0 10-26-2018 [facility] among non-blacks MDRD [facility] (29677) (S/P/Bld) [Vol rate/Area] Comment: Order Comment: Order Added erma Aldana Expert. Performed By: #### [id number] # ### MARCUS Kenyon[address] [address] cmp on 2018-10-26 Albumin [Mass/Vol] 4.2 3.4-5.0 gm/dL Normal 10-26-2018 [facility] (00 000) Comment: Performed By: #### [id number] # ### MARCUS Kenyono [address] [place] [address] Albumin/Globulin [Mass 1.6 1.1-1.9 ratio Normal 019 [facility] tem (86141) Comment: Performed By: #### [id number] # ### MARCUS Kenyono [facility]5 [place] [address] Alk Phos 66 33-110 Int._Unit/L Normal 10-26-2018 [facility] (21525) Comment: Performed By: #### [id number] # ### MARCUS Kenyono [facility]5 [place] [address] ALT [Catalytic 22 7-45 Int._Unit/L Normal 10-26-2018 [facility] activity/Vol Health System (15704) Comment: Performed By: #### [id number] # ### MARCUSShawn WilcoxHemo [facility]5 [place] [address] Anion gap [Moles/Vol] 12 10-20 mEq/L Normal 10-26-19 19 [facility] (00 000) Comment: Performed By: #### [id number] # ### MARCUS WilcoxHemo [address] [place] [address] AST [Catalytic 33 9-39 Int._Unit/L Normal 10-26-2018 [facility] (30546) Comment: Performed By: #### [id number] # ### MARCUS WilcoxHemo [address] [place] [address] Bili Total 0.38 0.00-1.20 mg/dL Normal 10-26-2018 [facility] (43137) Comment: Performed By: #### [id number] # ### MARCUS WilcoxHemo [address] [place] [address] Calcium [Mass/Vol] 9.2 8.6-10.3 mg/dL Normal 10-26-2018 [facility] (00 000) Comment: Performed By: #### [id number] # ### MARCUS WilcoxHemo [facility] [place] [address] Chloride [Moles/Vol] 110 98-107 mEq/L High [facility] () Comment: Performed By: #### [id number] # ### MARCUS WilcoxHemo [address] [place] [address] CO2 [Moles/Vol] 24.0 21.0-32.0 mEq/L Normal 10-26-2018 [facility] (00 000) Comment: Performed By: #### [id number] # ### MARCUS WilcoxHemo [address] [place] [address] Creatinine [Mass/Vol] 1.5 0.5-1.1 mg/dL High 10-26-19 19 [facility] (00 000) Comment: Performed By: #### [id number] # ### MARCUS RemHemo [address] [place] [address] Globulin (S) [Mass/Vol] 3.0 2.0-4.0 G/DL Normal 2018 [facility] (00 000) Comment: Performed By: #### [id number] # ### MARCUS RemHemo [address] [place] [address] Glucose [Mass/Vol] 97 70-99 mg/dL Normal 10-26-2018 [facility] (87783) Comment: Performed By: #### [id number] # ### MARCUS WilcoxHemo [address] [place] [address] Potassium [Moles/Vol] 4.9 3.5-5.3 mEq/L Normal 10-26-19 [facility] (00 000) Comment: Performed By: #### [id number] # ### MARCUS WilcoxHemo [address] [place] [address] Protein [Mass/Vol] 6.9 6.4-8.2 gm/dL Normal 10-26-2018 [facility] (00 000) Comment: Performed By: #### [id number] # ### MARCUS WilcoxHemo [facility] [place] [address] Sodium [Moles/Vol] 141 136-145 mEq/L Normal 10-26-2018 [facility] (00 000) Comment: Performed By: #### [id number] # ### MARCUS WilcoxHemo [facility]5 [place] [address] Urea nitrogen [Mass/Vol] 17 6-23 mg/dL Normal 10-26 [facility] (00 000) Comment: Performed By: #### [id number] # ### MARCUS WilcoxHemo [address] [place] [address] Urea nitrogen/Creatinine 11.3 5.4-30.0 ratio Normal 10-26 [facility] [Mass ratio] [facility] System (47440) Comment: Performed By: #### [id number] # ### MARCUS JeriHemo [facility] [place] [address] cbc w/ auto diff on 2018-10-26 Erythrocyte distribution 13.2 11.5-14.5 % Normal 10-26 [facility] width (RBC) [Ratio] [facility] (81207) Comment: Performed By: #### [id number] # ### MARCUS WilcoxHemo [facility]5 [place] [address] Hematocrit (Bld) [Volume 44.4 36.0-48.0 % Normal 10-26 [facility]] [facility] (84244) Comment: Performed By: #### [id number] # ### MARCUSShawn WilcoxHemo [facility]5 [place] [address] Hemoglobin (Bld) 14.8 12.0-16.0 G/DL Normal 10-26-2018 [facility] [Mass/Vol] Health Sy stem (06454) Comment: Performed By: #### [id number] # ### MARCUS WilcoxHemo [address] [place] [address] MCH (RBC) [Entitic mass] 30.7 27.0-31.0 pg Normal 10-26 [facility] (00 000) Comment: Performed By: #### [id number] # ### MARCUS WilcoxHemo [facility]5 [place] [address] MCHC (RBC) [Mass/Vol] 33.3 33.0-37.0 G/DL Normal 10-26-19 19 [facility] () Comment: Performed By: #### [id number] # ### MARCUS WilcoxHemo [facility] [place] [address] MCV (RBC) [Entitic vol] 92.1 78.0-100.0 fL Normal 10-26 [facility] tem (58889) Comment: Performed By: #### [id number] # ### MARCUS WilcoxHemo [facility]5 [place] [address] Platelet mean volume 7.8 7.4-11.0 fL Normal 9 [facility] (Bld) [Entitic vol] System (92750) Comment: Performed By: #### [id number] # ### MARCUS RemHemo [facility] [place] [address] Platelets (Bld) [#/Vol] 93 130-400 E3/mcL Low 2018 [facility] ( 000) Comment: Performed By: #### [id number] # ### MARCUS RemHemo [address] [place] [address] RBC (Bld) [#/Vol] 4.82 3.90-5.40 E6/mcL Normal 10-26-2018 [facility] (00 000) Comment: Performed By: #### [id number] # ### MARCUS RemHemo [address] [place] [address] WBC (Bld) [#/Vol] 4.7 3.6-11.0 E3/mcL Normal 10-26-2018 [facility] (00 000) Comment: Performed By: #### [id number] # ### MARCUS RemHemo [address] [place] [address] xr spine lumbosacral 2 or 3 views on 2018-10-14 XR Spine Lumbosacral Exam Date/Time: Normal [facility] 2 or 3 Views 10/14/2018 15:28 [facility] Reason for Exam: (00 000) Back pain Report STUDY: XR Spine Lumbosacral 2 or 3 Views; 10/14/2018 3:28 pm INDICATION: Back pain. COMPARISON: 01/21/2017 ACCESSION NUMBER(S): [id number] ORDERING CLINICIAN: Moi De La Cruz FINDINGS: [...] pm Signed by: Bhupinder Berger MD Technologist: [facility] ua complete on 2017 Color (U) Yellow Yellow Normal 10-14-2018 [facility] (42742) Comment: Performed By: #### [id number] # ### MARCUS RemHemo [facility] [place] [address] Glucose (U) [Mass/Vol] Negative Negative mg/dL Normal 018 [facility] Sys tem (54477) Comment: Performed By: #### [id number] # ### MARCUS RemHemo [address] [place] [address] Ketones Ql (U) Negative Negative Normal 10-14-2018 [facility] (30012) Comment: Performed By: #### [id number] # ### MARCUS RemHemo [facility] [place] [address] RBC (U) [#/Vol] 10-20 0-3 Abnormal 10-14-2018 [facility] (65514) Comment: Performed By: #### [id number] # ### MARCUS WilcoxHemo [address] [place] [address] UA Blood Negative Negative Normal 10-14-2018 [facility] (32095) Comment: Performed By: #### [id number] # ### MARCUS WilcoxHemo [address] [place] [address] UA Clarity Cloudy Clear Abnormal 10-14-2018 [facility] (81059) Comment: Performed By: #### [id number] # ### MARCUS WilcoxHemo [facility] [place] [address] UA Hyal Cast 5-10 0-2 Abnormal 10-14-2018 [facility] (89965) Comment: Performed By: #### [id number] # ### MARCUS WilcoxHemo [facility] [place] [address] UA Leuk Est 3+ Negative Abnormal 10-14-2018 [facility] (94833) Comment: Performed By: #### [id number] # ### MARCUS WilcoxHemo [address] [place] [address] UA Mucous Trace Trace Abnormal 10-14-2018 [facility] (62192) Comment: Performed By: #### [id number] # ### MARCUS WilcoxHemo [address] [place] [address] UA Nitrite Negative Negative Normal 10-14-2018 [facility] (84213) Comment: Performed By: #### [id number] # ### MARCUS WilcoxHemo [address] [place] [address] UA pH 7.0 4.6-8.0 Normal 10-14-2018 [facility] (04629) Comment: Performed By: #### [id number] # ### MARCUS WilcoxHemo [address] [place] [address] UA Protein Negative Negative Normal 10-14-2018 [facility] (03677) Comment: Performed By: #### [id number] # ### MARCUS WilcoxHemo [address] [place] [address] UA Spec Grav 1.016 1.003-1.030 Normal 10-14-2018 [facility] (14472) Comment: Performed By: #### [id number] # ### MARCUS WilcoxHemo [address] [place] [address] UA Squam Epithelial >30 0-5 Abnormal 10-14-2018 [facility] (09936) Comment: Performed By: #### [id number] # ### MARCUS WilcoxHemo [address] [place] [address] UA Urobilinogen Negative Normal 10-14-2018 [facility] (26181) Comment: Result Comment: Due to a man ufacturing issue, low positive urobilinogen results may be fasely positi ve. Correlate with urine bilirubin and additional clinical/laborato ry findings to assess the risk of hemolytic anemia or liver disease. If clinically indicated, repeat testing with an alternate method is availabl e by contacting the laboratory within 24 hours. Performed By: #### [id number] # ### MARCUS WilcoxHemo [address] [place] [address] UA WBC 10-20 0-5 Abnormal 10-14-2018 [facility] (79176) Comment: Performed By: #### [id number] # ### MARCUS WilcoxHemo [address] [place] [address] Urobilinogen Qn (U) Negative Negative Normal 10-14-2018 [facility] (00 000) Comment: Performed By: #### [id number] # ### MARCUS WilcoxHemo [facility] [place] [address] xr chest ap portable on 2018-10-02 XR Chest AP Exam Date/Time: Normal 10-02-2018 [facility] Portable 10/02/2018 11:20 [facility] Reason for Exam: (00 000) Chest pain Report STUDY: XR Chest AP Portable; 10/02/2018 11:20 am INDICATION: Chest pain. COMPARISON: 12/15/2017 ACCESSION NUMBER(S): [id number] ORDERING CLINICIAN: Moi De La Cruz FINDINGS: [...] Troponin I.cardiac <.01 .00-.03 ng/mL Normal 10-02-2018 [facility] [Mass/Vol] [facility] (89150) Comment: Performed By: #### [id number] # ### [facility] JeriMyCoopo [facility] [place] [address] Troponin I.cardiac .01 .00-.03 ng/mL Normal 10-02-2018 [facility] [Mass/Vol] [facility] stem (18895) Comment: Performed By: #### [id number] #### [address] [address] ptt on 2018-10-02 aPTT Coag (Bld) 28.3 23.2-36.4 second(s) Normal 10-02-2018 [facility] [Time] [facility] tem (29934) Comment: Performed By: #### [id number] #### MARCUSShawn WilcoxMyCoopo [address] [place] [address] ptt control ratio o n 2018-10-02 PTT Ratio 0.9 0.8-1.2 ratio Normal 10-02-2018 [facility] (43444) Comment: Order Comment: Order added b y Discern Expert. Performed By: #### [id number] #### [facility]Shawn [facility] [place] [address] pt on 2018-10-02 INR Coag (PPP) [Relative 1.1 1.0-1.2 {INR} Normal 10-02 [facility] tem (39490) Comment: Result Comment: INR Recommen ded Therapeuptic Ranges: Prophylaxis/treatment of DVT and PE?2.0-3.0 Prevention of systemic embol ism?.2.0-3.0 Mechanical prosthetic values ?2.5-3.5 CRITICAL VALUES?.>4.0 Performed By: #### [id number] #### MARCUS [place] [address] [place] [address] PT Coag (PPP) [Time] 13.2 11.6-14.6 second(s) Normal 8 [facility] tem (03722) Comment: Performed By: #### [id number] #### MARCUS [address] [address] manual diff on 2017 Anisocytosis Ql (Bld) 2+ Normal 10-02-20 18 [facility] (06111) Comment: Order Comment: Order Added erma Aldana Expert. Performed By: #### [id number] #### MARCUS [address] [address] Band form neutrophils/100 WBC 6 0-1 High 10-02-2018 [facility] (d) System (00 000) Comment: Order Comment: Order Added erma Aldana Expert. Performed By: #### [id number] #### MARCUS Kenyono [address] [place] [address] Basophil Man 0 0-1 % Normal 10-02-2018 [facility] (62877) Comment: Order Comment: Order Added erma Aldana Expert. Performed By: #### [id number] #### MARCUS Kenyono [address] [place] [address] Eosinophils/100 WBC (Bld) 1 0-5 % Normal 09-17 [facility] (12424) Comment: Order Comment: Order Added erma Aldana Expert. Performed By: #### [id number] #### [facility]Sh[facility]Strong [facility] Hospital[facility] [address] [place] [address] Lymphocytes/100 WBC (Bld) 37 14-48 % Normal 09-17 [facility] (00 000) Comment: Order Comment: Order Added b y Discern Expert. Performed By: #### [id number] #### MARCUS WilcoxHemo [address] [place] [address] [place] Man 3 0-0 % High 10-02-2018 [facility] (48405) Comment: Order Comment: Order Added b y Discern Expert. Performed By: #### [id number] #### MARCUS WilcoxHemo [address] [place] [address] Monocyte Man 10 1-11 % Normal 10-02-2018 [facility] (12524) Comment: Order Comment: Order Added b y Discern Expert. Performed By: #### [id number] #### MARCUSShawn WilcoxHemo [address] [place] [address] Poikilocytosis 1+ Normal 10-02-2018 [facility] (26122) Comment: Order Comment: Order Added b y Discern Expert. Performed By: #### [id number] #### MARCUSShawn WilcoxHemo [facility] [place] [id number] Polychromasia 1+ Normal 10-02-2018 [facility] (72453) Comment: Order Comment: Order Added b y Discern Expert. Performed By: #### [id number] #### MARCUSShawn WlicoxMyCoopo [facility] [place] [id number] RBC morphology finding SEE MORPHOLOGY Normal [facility] ([facility] Health Sys tem (47790) Comment: Order Comment: Order Added b y Discern Expert. Performed By: #### [id number] #### MARCUSShawn WilcoxHemo [address] [place] [address] Segs Man 43 37-75 % Normal 10-02-2018 [facility] (06030) Comment: Order Comment: Order Added b y Discern Expert. Performed By: #### [id number] #### MARCUSShawn WilcoxMyCoopo [facility] [place] [address] magnesium on 2017-10 2-16 Magnesium [Mass/Vol] 1.9 1.6-2.4 mg/dL Normal 8 [facility] (00 000) Comment: Performed By: #### [id number] #### MARCUSShawn WilcoxHemo [address] [place] [address] egfr on 2018-10-02 GFR/1.73 sq M predicted 53 mL/min/1.73 m2 Normal 1 12-03-2017 [facility] among non-blacks [facility] (41380) (S/P/Bld) [Vol rate/Area] Comment: Order Comment: Order added b y Katya Expert. Performed By: #### [id number] #### MARCUS JeriHemo [address] [place] [address] GFR/1.73 sq M predicted 44 mL/min/1.73 m2 Normal 1 12-03-2017 [facility] among non-blacks MDRD [facility] (82584) (S/P/Bld) [Vol rate/Area] Comment: Order Comment: Order added b dl Aldana Expert. Performed By: #### [id number] #### MARCUS JeriHemo [facility]5 [place] [address] cbc w/ auto diff on 2018-10-02 Erythrocyte distribution 13.1 11.5-14.5 % Normal 10-02 [facility] width (RBC) [Ratio] Health System (52874) Comment: Performed By: #### [id number] #### MARCUS RemHemo [address] [place] [address] Hematocrit (Bld) [Volume 40.9 36.0-48.0 % Normal 10-02 [facility] fraction] Health Sys tem (67272) Comment: Performed By: #### [id number] #### MARCUS JeriHemo [address] [place] [address] Hemoglobin (Bld) 13.7 12.0-16.0 G/DL Normal 10-02-2018 [facility] [Mass/Vol] Health Sy stem (55163) Comment: Performed By: #### [id number] #### MARCUS RemHemo [address] [place] [address] MCH (RBC) [Entitic mass] 31.0 27.0-31.0 pg Normal 10-02 [facility] (00 000) Comment: Performed By: #### [id number] #### MARCUS RemHemo [address] [place] [address] MCHC (RBC) [Mass/Vol] 33.7 33.0-37.0 G/DL Normal 10-02-20 [facility] (00 000) Comment: Performed By: #### [id number] #### MARCUS WilcoxHemo [facility] [place] [address] MCV (RBC) [Entitic vol] 92.1 78.0-100.0 fL Normal 10-02 [facility] Sys tem (37056) Comment: Performed By: #### [id number] #### MARCUS WilcoxHemo [facility] [place] [address] Platelet mean volume 8.4 7.4-11.0 fL Normal [facility] (Bld) [Entitic vol] System (84653) Comment: Performed By: #### [id number] #### MARCUS WilcoxHemo [facility] [place] [address] Platelets (Bld) [#/Vol] 82 130-400 E3/mcL Low 2017 [facility] (00 000) Comment: Performed By: #### [id number] #### MARCUSShawn WilcoxHemo [address] [place] [address] RBC (Bld) [#/Vol] 4.44 3.90-5.40 E6/mcL Normal 10-02-2018 [facility] (00 000) Comment: Performed By: #### [id number] #### MARCUSShawn WilcoxHemo [address] [place] [address] WBC (Bld) [#/Vol] 5.3 3.6-11.0 E3/mcL Normal 10-02-2018 [facility] (00 000) Comment: Performed By: #### [id number] #### MARCUSShawn WilcoxHemo [address] [place] [address] bmp on 2018-10-02 Anion gap [Moles/Vol] 9 10-20 mEq/L Low 10-02-20 18 [facility] (48554) Comment: Performed By: #### [id number] #### [facility] [address] [place] [address] Calcium [Mass/Vol] 8.4 8.6-10.3 mg/dL Low 10-02-2018 [facility] (97952) Comment: Performed By: #### [id number] #### MARCUS WilcoxHemo [address] [place] [address] Chloride [Moles/Vol] 111 98-107 mEq/L High 8 [facility] (00 000) Comment: Performed By: #### [id number] #### MARCUS RemHemo [address] [place] [address] CO2 [Moles/Vol] 22.0 21.0-32.0 mEq/L Normal 10-02-2018 [facility] ( 000) Comment: Performed By: #### [id number] #### MARCUS JeriHemo [facility] [place] [address] Creatinine [Mass/Vol] 1.3 0.5-1.1 mg/dL High 10-02-20 18 [facility] (00 000) Comment: Performed By: #### [id number] #### MARCUS RemHemo [facility] [place] [address] Glucose [Mass/Vol] 88 70-99 mg/dL Normal 10-02-2018 [facility] (30078) Comment: Performed By: #### [id number] #### MARCUS JeriHemo [facility] [place] [address] Potassium [Moles/Vol] 4.2 3.5-5.3 mEq/L Normal 10-02-20 18 [facility] (00 000) Comment: Performed By: #### [id number] #### MARCUS RemHemo [facility] [place] [address] Sodium [Moles/Vol] 138 136-145 mEq/L Normal 10-02-2018 [facility] ( 000) Comment: Performed By: #### [id number] #### MARCUS RemHemo [address] [place] [address] Urea nitrogen [Mass/Vol] 16 6-23 mg/dL Normal 10-02 [facility] (00 000) Comment: Performed By: #### [id number] #### MARCUS RemHemo [facility] [place] [address] Urea nitrogen/Creatinine 12.3 5.4-30.0 ratio Normal 10-02 [facility] [Mass ratio] [facility] (58157) Comment: Performed By: #### [id number] #### MARCUS Kenyoncorky [address] [place] [address] .manual abs on 2017 Basophil Abs Man 0.0 0.0-0.2 10x3/ Normal 10-02-2018 [facility] (33369) Comment: Order Comment: Order Added erma Aldana Expert. Performed By: #### [id number] #### MARCUSShawn Luong [address] [place] [address] Eos Abs Man 0.1 0.0-0.5 10x3/ Normal 10-02-2018 [facility] (16464) Comment: Order Comment: Order Added erma Aldana Expert. Performed By: #### [id number] #### MARCUS Ag [address] [place] [address] Lymph Abs Man 2.0 1.2-3.4 10x3/ Normal 10-02-2018 [facility] (02544) Comment: Order Comment: Order Added erma Aldana Expert. Performed By: #### [id number] #### MARCUS WilcoxRahul [address] [place] [address] [place] Abs Man 0.5 0.0-0.7 10x3/ Normal 10-02-2018 [facility] (82771) Comment: Order Comment: Order Added erma Aldana Expert. Performed By: #### [id number] #### MARCUSShawn Luong [address] [place] [address] Segs Abs Man 2.3 1.4-6.5 10x3/ Normal 10-02-2018 [facility] (91111) Comment: Order Comment: Order Added erma Aldana Expert. Performed By: #### [id number] #### MARCUSShawn Luong [facility]5 [place] [address] c urine on C Urine Final Report: Moderate Normal 018 [facility] Normal skin joe isolated System (55085) Comment: Performed By: #### [id number] #### MARCUS WilcoxHemo [address] [place] [address] ua complete on 2017 Color (U) Yellow Yellow Normal 09-22-2018 [facility] (86647) Comment: Performed By: #### [id number] #### MARCUS WilcoxHemo [address] [place] [address] Glucose (U) [Mass/Vol] Negative Negative mg/dL Normal 018 [facility] Sys tem (12369) Comment: Performed By: #### [id number] #### MARCUS WilcoxHemo [address] [place] [address] Ketones Ql (U) Negative Negative Normal 09-22-2018 [facility] (48084) Comment: Performed By: #### [id number] #### MARCUS WilcoxHemo [facility] [place] [address] RBC (U) [#/Vol] 20-50 0-3 Abnormal 09-22-2018 [facility] (75995) Comment: Performed By: #### [id number] #### MARCUS WilcoxHemo [facility] [place] [address] UA Blood Negative Negative Normal 09-22-2018 [facility] (50689) Comment: Performed By: #### [id number] #### MARCUS WilcoxHemo [address] [place] [address] UA Bacteria 2+ None /HPF Abnormal 09-22-2018 [facility] (25772) Comment: Performed By: #### [id number] #### MARCUSShawn WilcoxHemo [address] [place] [address] UA Clarity Cloudy Clear Abnormal 09-22-2018 [facility] (44408) Comment: Performed By: #### [id number] #### MARCUS RemHemo [address] [place] [address] UA Leuk Est 3+ Negative Abnormal 09-22-2018 [facility] (16648) Comment: Performed By: #### [id number] #### MARCUSShawn WilcoxHemo [address] [place] [address] UA Mucous Trace Trace Abnormal 09-22-2018 [facility] (31750) Comment: Performed By: #### [id number] #### MARCUS WilcoxHemo [address] [place] [address] UA Nitrite Negative Negative Normal 09-22-2018 [facility] (20815) Comment: Performed By: #### [id number] #### MARCUS Kenyono [facility]5 [place] [address] UA pH 7.0 4.6-8.0 Normal 09-22-2018 [facility] (75982) Comment: Performed By: #### [id number] #### MARCUS WilcoxHemo [facility]5 [place] [address] UA Protein Negative Negative Normal 09-22-2018 [facility] (49417) Comment: Performed By: #### [id number] #### MARCUS WilcoxHemo [facility]5 [place] [address] UA Spec Grav 1.014 1.003-1.030 Normal 09-22-2018 [facility] (62773) Comment: Performed By: #### [id number] #### MARCUS WilcoxHemo [address] [place] [address] UA Squam Epithelial >30 0-5 Abnormal 09-22-2018 [facility] (31575) Comment: Performed By: #### [id number] #### MARCUS WilcoxHemo [address] [place] [address] UA Urobilinogen Negative Normal 09-22-2018 [facility] (22862) Comment: Result Comment: Due to a man ufacturing issue, low positive urobilinogen results may be fasely positi ve. Correlate with urine bilirubin and additional clinical/laborato ry findings to assess the risk of hemolytic anemia or liver disease. If clinically indicated, repeat testing with an alternate method is availabl e by contacting the laboratory within 24 hours. Performed By: #### [id number] #### MARCUS WilcoxHemo [facility] [place] [address] UA WBC 20-50 0-5 Abnormal 09-22-2018 [facility] (06039) Comment: Performed By: #### [id number] #### MARCUS WilcoxHemo [facility] [place] [address] Urobilinogen Qn (U) Negative Negative Normal 09-22-2018 [facility] (00 000) Comment: Performed By: #### [id number] #### MARCUS Kenyono [facility]5 [place] [address] u bhcg qlt on 09-22 HCG.beta subunit Qn Neg Neg m[IU]/mL Normal 09-22-2018 [facility] (00 000) Comment: Performed By: #### [id number] #### MARCUS Kenyono [facility]5 [place] [address] lipase level on 201 05-29-06 Lipase Lvl 44 9-82 Int._Unit/L Normal 09-22-2018 [facility] (01322) Comment: Performed By: #### [id number] #### MARCUS Kenyono [facility]5 [place] [address] hep func panel on 2 Albumin [Mass/Vol] 4.7 3.4-5.0 gm/dL Normal 09-22-2018 [facility] (00 000) Comment: Performed By: #### [id number] #### MARCUS Kostaso [address] [place] [address] Albumin/Globulin [Mass 1.7 1.1-1.9 ratio Normal [address] [place] [address]] Health Sys tem (76047) Comment: Performed By: #### [id number] #### MARCUS Kostaso [facility]5 [place] [address] Alk Phos 67 33-110 Int._Unit/L Normal 09-22-2018 [facility] (27386) Comment: Performed By: #### [id number] #### MARCUS JeriHemo [facility]5 [place] [address] ALT [Catalytic 19 7-45 Int._Unit/L Normal 09-22-2018 [facility] activity/Vol] Health System (74797) Comment: Performed By: #### [id number] #### MARCUS JeriHemo [address] [place] [address] AST [Catalytic 31 9-39 Int._Unit/L Normal 09-22-2018 [facility] activity/Vol] Health System (85629) Comment: Performed By: #### [id number] #### MARCUS WilcoxHemo [address] [place] [address] Bili Direct 0.12 0.00-0.30 mg/dL Normal 09-22-2018 [facility] (65355) Comment: Performed By: #### [id number] #### MARCUS WilcoxHemo [address] [place] [address] Bili Indirect 0.53 mg/dL Normal 09-22-2018 [facility] (70177) Comment: Result Comment: No establish ed ranges available for the indirect bilirubin Performed By: #### [id number] #### MARCUS WilcoxHemo [address] [place] [address] Bili Total 0.65 0.00-1.20 mg/dL Normal 09-22-2018 [facility] (02419) Comment: Performed By: #### [id number] #### MARCUS WilcoxHemo [address] [place] [address] Globulin (S) [Mass/Vol] 3.0 2.0-4.0 G/DL Normal 2017 [facility] (00 000) Comment: Performed By: #### [id number] #### MARCUS WilcoxHemo [address] [place] [address] Protein [Mass/Vol] 7.4 6.4-8.2 gm/dL Normal 09-22-2018 [facility] (00 000) Comment: Performed By: #### [id number] #### MARCUS WilcoxHemo [address] [place] [address] egfr on 2018-09-22 GFR/1.73 sq M predicted 51 mL/min/1.73 m2 Normal 1 11-23-2017 [facility] among non-blacks [facility] (88555) (S/P/Bld) [Vol rate/Area] Comment: Order Comment: Order Added b y Discern Expert. Performed By: #### [id number] #### MARCUS WilcoxHemo [address] [place] [address] GFR/1.73 sq M predicted 42 mL/min/1.73 m2 Normal 1 11-23-2017 [facility] among non-blacks [facility] (10877) (S/P/Bld) [Vol rate/Area] Comment: Order Comment: Order Added erma Adlana Expert. Performed By: #### [id number] #### MARCUS Ag [address] [place] [address] ct abdomen/pelvis w/o contrast on 2018-09-22 CT Abdomen/Pelvis w/o Exam Date/Time: Normal [facility] Contrast 09/22/2018 18:11 EST [facility] Reason for Exam: Sys tem (13493) Abdominal Pain;Other (please specify) Report STUDY: CT Abdomen/Pelvis w/o Contrast; 09/22/2018 6:11 pm INDICATION: Other (please specify). COMPARISON: CT dated 05/19/2018 ACCESSION NUMBER(S): [id number] ORDERING CLINICIAN: Shilpa Douglas TECHNIQUE: CT of [...] Erythrocyte distribution 13.6 11.5-14.5 % Normal 09-22 [facility] width (RBC) [Ratio] Health System (06374) Comment: Performed By: #### [id number] # ### MARCUS WilcoxHemo [address] [place] [address] Hematocrit (Bld) [Volume 50.0 36.0-48.0 % High 09-22 [facility] fraction] System (00 000) Comment: Performed By: #### [id number] # ### MARCSU WilcoxHemo [facility] [place] [address] Hemoglobin (Bld) 16.9 12.0-16.0 G/DL High 09-22-2018 [facility] [Mass/Vol] [facility] stem (09164) Comment: Performed By: #### [id number] # ### MARCUS WilcoxHemo [facility] [place] [address] MCH (RBC) [Entitic mass] 31.0 27.0-31.0 pg Normal 09-22 [facility] (00 000) Comment: Performed By: #### [id number] # ### MARCUS RemHemo [facility] [place] [address] MCHC (RBC) [Mass/Vol] 33.8 33.0-37.0 G/DL Normal 09-22-20 18 [facility] (00 000) Comment: Performed By: #### [id number] # ### MARCUSShawn WilcoxHemo [facility] [place] [address] MCV (RBC) [Entitic vol] 91.7 78.0-100.0 fL Normal 09-22 [facility] Sys tem (17890) Comment: Performed By: #### [id number] # ### MARCUS RemHemo [address] [place] [address] Platelet mean volume 8.1 7.4-11.0 fL Normal 8 [facility] (Bld) [Entitic vol] System (05338) Comment: Performed By: #### [id number] # ### MARCUS RemHemo [facility] [place] [address] Platelets (Bld) [#/Vol] 123 130-400 E3/mcL Low 2017 [facility] () Comment: Performed By: #### [id number] # ### MARCUS WilcoxHemo [address] [place] [address] RBC (Bld) [#/Vol] 5.45 3.90-5.40 E6/mcL High 09-22-2018 [facility] () Comment: Performed By: #### [id number] # ### MARCUS WilcoxHemo [facility] [place] [address] WBC (Bld) [#/Vol] 6.6 3.6-11.0 E3/mcL Normal 09-22-2018 [facility] () Comment: Performed By: #### [id number] # ### MARCUS WilcoxHemo [facility] [place] [address] bmp on 2018-09-22 Anion gap [Moles/Vol] 12 10-20 mEq/L Normal 09-22-20 [facility] () Comment: Performed By: #### [id number] #### MARCUS WilcoxHemo [facility] [place] [address] Calcium [Mass/Vol] 9.4 8.6-10.3 mg/dL Normal 09-22-2018 [facility] () Comment: Performed By: #### [id number] #### MARCUS WilcoxHemo [facility] [place] [address] Chloride [Moles/Vol] 110 98-107 mEq/L High [facility] () Comment: Performed By: #### [id number] #### MARCUS WilcoxHemo [address] [place] [address] CO2 [Moles/Vol] 22.0 21.0-32.0 mEq/L Normal 09-22-2018 [facility] () Comment: Performed By: #### [id number] #### MARCUS RemHemo [address] [place] [address] Creatinine [Mass/Vol] 1.4 0.5-1.1 mg/dL High 09-22-20 [facility] () Comment: Performed By: #### [id number] #### MARCUS WilcoxHemo [address] [place] [address] Glucose [Mass/Vol] 93 70-99 mg/dL Normal 09-22-2018 [facility] (19726) Comment: Performed By: #### [id number] #### MARCUS Kenyono [address] [place] [address] Potassium [Moles/Vol] 4.7 3.5-5.3 mEq/L Normal 09-22-20 18 [facility] (00 000) Comment: Performed By: #### [id number] #### [facility] [address] [place] [address] Sodium [Moles/Vol] 139 136-145 mEq/L Normal 09-22-2018 [facility] (00 000) Comment: Performed By: #### [id number] #### MARCUS Kenyono [address] [place] [address] Urea nitrogen [Mass/Vol] 15 6-23 mg/dL Normal 09-22 [facility] (00 000) Comment: Performed By: #### [id number] #### MARCUS Kenyono [address] [place] [address] Urea nitrogen/Creatinine 10.7 5.4-30.0 ratio Normal 09-22 [facility] [Mass ratio] [facility] (34613) Comment: Performed By: #### [id number] #### MARCUS Kenyon[address] [address] auto diff on 2017-10 2 Basophils (Bld) [#/Vol] 0.0 0.0-0.2 E3/mcL Normal 2017 [facility] Sys tem (81304) Comment: Order Comment: Order Added b y Discern Expert. Performed By: #### [id number] #### MARCUSShawn Kenyono [address] [place] [address] Basophils/100 WBC (Bld) 0.4 0.0-2.0 % Normal 2017 [facility] (00 000) Comment: Order Comment: Order Added b y Discern Expert. Performed By: #### [id number] #### MARCUS RemHemo [address] [place] [address] [place] [address] Eos Absolute 0.1 0.0-0.7 E3/mcL Normal 09-22-2018 [facility] (19742) Comment: Order Comment: Order Added erma Aldana Expert. Performed By: #### [id number] #### MARCUS WilcoxHemo [address] [place] [address] Eosinophils/100 WBC (Bld) 1.6 0.0-11.0 % Normal [facility] (00 000) Comment: Order Comment: Order Added erma Aldana Expert. Performed By: #### [id number] #### MARCUS RemHemo [address] [place] [address] Lymphocytes (Bld) [#/Vol] 2.0 1.2-3.4 E3/mcL Normal [facility] (06001) Comment: Order Comment: Order Added erma Aldana Expert. Performed By: #### [id number] #### MARCUS WilcoxHemo [address] [place] [address] Lymphocytes/100 WBC (Bld) 30.2 20.0-55.0 % Normal [facility] (56092) Comment: Order Comment: Order Added erma Aldana Expert. Performed By: #### [id number] #### MARCUS RemHemo [address] [place] [address] [place] Absolute 0.6 0.0-0.7 E3/mcL Normal 09-22-2018 [facility] (94557) Comment: Order Comment: Order Added erma Aldana Expert. Performed By: #### [id number] #### MARCUS RemHemo [address] [place] [address] Monocytes/100 WBC (Bld) 9.0 0.0-10.0 % Normal 2017 [facility] (00 000) Comment: Order Comment: Order Added erma Aldana Expert. Performed By: #### [id number] #### MARCUS RemHemo [address] [place] [address] Neutro Absolute 3.9 1.4-6.5 E3/mcL Normal 09-22-2018 [facility] (35241) Comment: Order Comment: Order Added erma Aldana Expert. Performed By: #### [id number] #### MARCUS RemHemo [address] [place] [address] Neutro Auto 58.8 37.0-75.0 % Normal 09-22-2018 [facility] (78945) Comment: Order Comment: Order Added erma Aldana Expert. Performed By: #### [id number] #### MARCUS RemHemo [address] [place] [address] c urine on C Urine Final Report: Few Mixed skin Normal 1 [facility] (58505) Comment: Performed By: #### [id number] # ### MARCUS Microbiology Subsection [address] [place] [address] ua complete on 2017 Color (U) Yellow Yellow Normal 08-15-2018 [facility] (77515) Comment: Order Comment: Straight Cath as needed Performed By: #### [id number] #### MARCUS Urinalysis Automated Suggs bsection [address] [place] [address] Glucose (U) [Mass/Vol] 1+ Negative Abnormal 018 [facility] (00 000) Comment: Order Comment: Straight Cath as needed Performed By: #### [id number] #### MARCUS Urinalysis Automated Suggs bsection [address] [place] [address] Ketones Ql (U) Negative Negative Normal 08-15-2018 [facility] (18668) Comment: Order Comment: Straight Cath as needed Performed By: #### [id number] #### MARCUS Urinalysis Automated Suggs bsection [address] [place] [address] RBC (U) [#/Vol] 0-3 0-3 Normal 08-15-2018 [facility] (57053) Comment: Order Comment: Straight Cath as needed Performed By: #### [id number] #### MARCUS Urinalysis Automated Suggs bsection [address] [place] [address] UA Blood Negative Negative Normal 08-15-2018 [facility] (98898) Comment: Order Comment: Straight Cath as needed Performed By: #### [id number] #### MARCUS Urinalysis Automated Suggs bsection [address] [place] [address] UA Bacteria Trace None Abnormal 08-15-2018 [facility] (23576) Comment: Order Comment: Straight Cath as needed Performed By: #### [id number] #### MARCUS Urinalysis Automated Suggs bsection [address] [place] [address] UA Clarity SltCloudy Clear Abnormal 08-15-2018 [facility] (25344) Comment: Order Comment: Straight Cath as needed Performed By: #### [id number] #### MARCUS Urinalysis Automated Suggs bsection [address] [place] [address] UA Hyal Cast 0-2 0-2 Normal 08-15-2018 [facility] (35897) Comment: Order Comment: Straight Cath as needed Performed By: #### [id number] #### MARCUS Urinalysis Automated Suggs bsection [address] [place] [address] UA Leuk Est 1+ Negative Abnormal 08-15-2018 [facility] (06314) Comment: Order Comment: Straight Cath as needed Performed By: #### [id number] #### MARCUS Urinalysis Automated Suggs bsection [address] [place] [address] UA Mucous Trace Trace Abnormal 08-15-2018 [facility] (16893) Comment: Order Comment: Straight Cath as needed Performed By: #### [id number] #### MARCUS Urinalysis Automated Suggs bsection [address] [place] [address] UA Nitrite Negative Negative Normal 08-15-2018 [facility] (86414) Comment: Order Comment: Straight Cath as needed Performed By: #### [id number] #### MARCUS Urinalysis Automated Suggs bsection [address] [place] [address] UA pH 7.0 4.6-8.0 Normal 08-15-2018 [facility] (55915) Comment: Order Comment: Straight Cath as needed Performed By: #### [id number] #### MARCUS Urinalysis Automated Suggs bsection [address] [place] [address] UA Protein Negative Negative Normal 08-15-2018 [facility] (62123) Comment: Order Comment: Straight Cath as needed Performed By: #### [id number] #### MARCUS Urinalysis Automated Suggs bsection [address] [place] [address] UA Spec Grav 1.012 1.003-1.030 Normal 08-15-2018 [facility] (66011) Comment: Order Comment: Straight Cath as needed Performed By: #### [id number] #### MARCUS Urinalysis Automated Suggs bsection [address] [place] [address] UA Squam Epithelial 5-10 0-5 Abnormal 08-15-2018 [facility] (99200) Comment: Order Comment: Straight Cath as needed Performed By: #### [id number] #### MARCUS Urinalysis Automated Suggs bsection [address] [place] [address] UA Urobilinogen Negative Normal 08-15-2018 [facility] (41859) Comment: Order Comment: Straight Cath as needed Performed By: #### [id number] #### MARCUS Urinalysis Automated Suggs bsection [address] [place] [address] UA WBC 10-20 0-5 Abnormal 08-15-2018 [facility] (05973) Comment: Order Comment: Straight Cath as needed Performed By: #### [id number] #### MARCUS Urinalysis Automated Suggs bsection [address] [place] [address] Urobilinogen Qn (U) Negative Negative Normal 08-15-2018 [facility] (00 000) Comment: Order Comment: Straight Cath as needed Performed By: #### [id number] #### MARCUS Urinalysis Automated Suggs bsection [address] [place] [address] zzplt morph on 2017 Platelet morphology finding NORMAL Normal [facility] (d) System (00 000) Comment: Performed By: #### [id number] #### MARCUS RemHemo [address] [place] [address] Platelets (d) [#/Vol] DECREASED Normal 2017 [facility] (00 000) Comment: Performed By: #### [id number] #### [place]ARCUS [place] [id number] tsh on 2018-08-14 TSH Qn 2.16 0.30-5.60 mcIU/mL Normal 08-14-2018 [facility] (15646) Comment: Order Comment: With T4fr Ref kurt Performed By: #### [id number] # ### MARCUSShawn Wilcox[place] [id number] morph on 2018-08-14 Anisocytosis Ql (Bld) 1+ Normal 08-14-20 18 [facility] (43931) Comment: Order Comment: Order Added b y Discern Expert. Performed By: #### [id number] #### MARCUS [place] [id number] RBC morphology finding SEE MORPHOLOGY Normal [facility] ([facility]) Health Sys tem (44191) Comment: Order Comment: Order Added b y Discern Expert. Performed By: #### [id number] #### MARCUS [place] [id number] egfr on 2018-08-14 GFR/1.73 sq M predicted 53 mL/min/1.73 m2 Normal 1 [facility] among non-bl[facility] (02882) (S/P/Bld) [Vol rate/Area] Comment: Order Comment: Order added b y Discern Expert. Performed By: #### [id number] #### MARCUSShawn WilcoxSh[place] [id number] GFR/1.73 sq M predicted 44 mL/min/1.73 m2 Normal 1 [facility] among non-blacks [facility] (73306) (S/P/Bld) [Vol rate/Area] Comment: Order Comment: Order added b y Discern Expert. Performed By: #### [id number] #### MARCUSShawn Wilcox[place] [id number] cbc w/ auto diff on 2018-08-14 Erythrocyte distribution 13.2 11.5-14.5 % Normal 08-14 [facility] width (RBC) [Ratio] Health System (95271) Comment: Performed By: #### [id number] # ### MARCUS WilcoxHemo [address] [place] [address] Hematocrit (Bld) [Volume 42.1 36.0-48.0 % Normal 08-14 [facility] Sys tem (41043) Comment: Performed By: #### [id number] # ### MARCUS WilcoxHemo [address] [place] [address] Hemoglobin (Bld) 14.1 12.0-16.0 G/DL Normal 08-14-2018 [facility] [Mass/Vol] Health Sy stem (02456) Comment: Performed By: #### [id number] # ### MARCUSShawn WilcoxHemo [facility] [place] [address] MCH (RBC) [Entitic mass] 30.8 27.0-31.0 pg Normal 08-14 [facility] (00 000) Comment: Performed By: #### [id number] # ### MARCUSShawn WilcoxHemo [address] [place] [address] MCHC (RBC) [Mass/Vol] 33.5 33.0-37.0 G/DL Normal 08-14-20 18 [facility] (00 000) Comment: Performed By: #### [id number] # ### MARCUSShawn WilcoxHemo [address] [place] [address] MCV (RBC) [Entitic vol] 91.7 78.0-100.0 fL Normal 08-14 [facility] Sys tem (11906) Comment: Performed By: #### [id number] # ### MARCUSShawn WilcoxHemo [address] [place] [address] Platelet mean volume 8.8 7.4-11.0 fL Normal 8 [facility] (Bld) [Entitic vol] System (08456) Comment: Performed By: #### [id number] # ### MARCUS [facility] [place] [address] Platelets (Bld) [#/Vol] 78 130-400 E3/mcL Low 2017 [facility] (00 000) Comment: Performed By: #### [id number] # ### MARCUS [facility] [place] [address] RBC (Bld) [#/Vol] 4.60 3.90-5.40 E6/mcL Normal 08-14-2018 [facility] () Comment: Performed By: #### [id number] # ### MARCUS RemHemo [address] [place] [address] WBC (Bld) [#/Vol] 4.2 3.6-11.0 E3/mcL Normal 08-14-2018 [facility] () Comment: Performed By: #### [id number] # ### MARCUS RemHemo [address] [place] [address] bmp on 2018-08-14 Anion gap [Moles/Vol] 13 10-20 mEq/L Normal 08-14-20 [facility] () Comment: Performed By: #### [id number] # ### MARCUS [facility] [address] [place] [address] Calcium [Mass/Vol] 8.3 8.6-10.3 mg/dL Low 08-14-2018 [facility] (57520) Comment: Performed By: #### [id number] # ### MARCUS [facility] [address] [place] [address] Chloride [Moles/Vol] 110 98-107 mEq/L High [facility] () Comment: Performed By: #### [id number] # ### MARCUS [facility] [address] [place] [address] CO2 [Moles/Vol] 21.0 21.0-32.0 mEq/L Normal 08-14-2018 [facility] () Comment: Performed By: #### [id number] # ### MARCUS [facility] [address] [place] [address] Creatinine [Mass/Vol] 1.3 0.6-1.3 mg/dL Normal 08-14-20 [facility] () Comment: Performed By: #### [id number] # ### MARCUS [facility] [address] [place] [address] Glucose [Mass/Vol] 122 70-99 mg/dL High 08-14-2018 [facility] (57235) Comment: Performed By: #### [id number] # ### MARCUS WilcoxChem [address] [place] [address] Potassium [Moles/Vol] 3.3 3.5-5.3 mEq/L Low 08-14-20 [facility] () Comment: Performed By: #### [id number] # ### MARCUSShawn WilcoxChem [facility] [place] [address] Sodium [Moles/Vol] 141 136-145 mEq/L Normal 08-14-2018 [facility] () Comment: Performed By: #### [id number] # ### MARCUS WilcoxChem [address] [place] [address] Urea nitrogen [Mass/Vol] 13 6-23 mg/dL Normal 08-14 [facility] () Comment: Performed By: #### [id number] # ### MARCUSShawn WilcoxChem [address] [place] [address] Urea nitrogen/Creatinine 10.0 5.4-30.0 ratio Normal 08-14 [facility] [Mass ratio] [facility] (95771) Comment: Performed By: #### [id number] # ### MARCUSShawn WilcoxChem [address] [place] [address] auto diff on 2017-10 Basophils (Bld) [#/Vol] 0.0 0.0-0.2 E3/mcL Normal 2017 [facility] Sys tem (60795) Comment: Order Comment: Order Added b y Discern Expert. Performed By: #### [id number] # ### MARCUS WilcoxHemo [address] [place] [address] Basophils/100 WBC (Bld) 0.7 0.0-2.0 % Normal 2017 [facility] () Comment: Order Comment: Order Added b y Discern Expert. Performed By: #### [id number] # ### MARCUS WilcoxHemo [facility] [place] [address] Eos Absolute 0.1 0.0-0.7 E3/mcL Normal 08-14-2018 [facility] (16258) Comment: Order Comment: Order Added b y Discern Expert. Performed By: #### [id number] # ### MARCUS RemHemo [address] [place] [address] Eosinophils/100 WBC (Bld) 2.2 0.0-11.0 % Normal 07-19 [facility] (00 000) Comment: Order Comment: Order Added b y Discern Expert. Performed By: #### [id number] # ### MARCUS RemHemo [address] [place] [address] Lymphocytes (Bld) [#/Vol] 1.4 1.2-3.4 E3/mcL Normal 07-19 [facility] tem (19720) Comment: Order Comment: Order Added b y Discern Expert. Performed By: #### [id number] # ### MARCUS WilcoxHemo [address] [place] [address] Lymphocytes/100 WBC (Bld) 32.5 20.0-55.0 % Normal 07-19 [facility] tem (66198) Comment: Order Comment: Order Added b y Discern Expert. Performed By: #### [id number] # ### MARCUS RemHemo [address] [place] [address] [place] Absolute 0.4 0.0-0.7 E3/mcL Normal 08-14-2018 [facility] (27002) Comment: Order Comment: Order Added b y Discern Expert. Performed By: #### [id number] # ### MARCUS WilcoxHemo [address] [place] [address] Monocytes/100 WBC (Bld) 9.7 0.0-10.0 % Normal 2017 [facility] (00 000) Comment: Order Comment: Order Added b y Discern Expert. Performed By: #### [id number] # ### MARCUS RemHemo [address] [place] [address] Neutro Absolute 2.3 1.4-6.5 E3/mcL Normal 08-14-2018 [facility] (93586) Comment: Order Comment: Order Added b y Discern Expert. Performed By: #### [id number] # ### [facility] RemHemo [address] [place] [address] Neutro Auto 54.9 37.0-75.0 % Normal 08-14-2018 [facility] (81669) Comment: Order Comment: Order Added b y Katya Expert. Performed By: #### [id number] # ### MARCUS WilcoxHemcorky [facility] [place] [address] culture, urine on Culture, Urine Test Name: Culture, Urine Normal 06-16-2018 [facility] Culture Status: [facility] Culture Report: No significant growth. (77636) Micro Source: Urine - clean catch Comment: Performed By: #### GLUX #### Unless otherwise noted, all testing performed by [facility] l [address] [place], [place] [address] CLIA: [id number] Entry Examiner: Ismael vines M.D. No panel information on 2018-06-16 Bilirubin Ql (U) Negative Negative Invalid 06-16-2018 [facility] Interpretation (4321 5) Code Glucose Ql (U) Negative Normal, Invalid 06-16-2018 [facility] Negative Interpretation (4321 5) mg/dL Code Hemoglobin Test Large Negative Abnormal 06-16-2018 [facility]Health strip Ql (U) (65174) Interpretation and Abnormal Invalid 06-16-2018 [facility] review of Interpretation (4321 5) laboratory results Code Ketones Ql (U) Negative Negative Invalid 06-16-2018 [facility] mg/dL Interpretation (4321 5) Code Leukocyte esterase Small Negative Abnormal 06-16-2018 [facility] Test strip Ql (U) (4 3215) Nitrite Test strip Negative Negative Invalid 06-16-2018 [facility] Ql (U) Interpretation (4321 5) Code pH Test strip (U) 7.5 OTH - OTH [pH] Abnormal 06-16-2018 [facility] (30802) Protein Test strip Trace Negative Abnormal 06-16-2018 [facility] Ql (U) mg/dL (45197) Specific gravity 1.020 OTH - OTH Invalid [facility] (03373) (U) Code Urobilinogen Test 0.2 <2.0, 0.2, mg/d Invalid 06-16-2018 [facility] strip Qn (U) Normal, L Interpretation (4 3215) Negative, Code 1.0, 2.0, <1.0 cur on 2018-05-15 CUR . MICRO - MicrobiologyPROCEDURE: Normal 05-15-2018 [facility] Urine Culture [*1] ACCESSION: [facility] ([place] ([id number]) [id number]: Urine, Straight BODY SITE: CatherizedCOLLECTED DATE/TIME: 05/13/2018 22:15 EDT RECEIVED DATE/TIME: 05/14/2018 17:17 EDTSTART DATE/TIME: 05/14/2018 17:17 EDT FREE TEXT SOURCE:PRELIMINARY REPORTSPreliminary Report []Verified Date/Time/Personnel: 05/15/2018 14:09 EDTCulture results pending.Performing Locations*1: This test was performed at: [facility], [address] [place] [address], [address] [place] [address] Comment: Performed By: #### CBC, ADIF F, ANEU ####[place] [address]#### L IP, CMP, GFR ####[place] [address] xr abdomen complete w/decub/erect on 2018-05-14 XR ABDOMEN COMPLETE ORIGINALSupine and Normal 0 05-14-2018 [facility] W/DECUB/ERECT upright views of the [facility] ([place] abdomen HISTORY: (00 000) Abdominal pain COMPARISON: [...] on 2018-05-14 Patient Summary Documents Normal 04-18 [facility] ([place]) (30837) [facility] on Pat Edu Normal 05-14-2018 [facility] ([place] (53757) [place] [facility] note on 2018-05-14 [facility] Normal 0 05-14-2018 [facility] ([place] (93311) lip on 2018-05-14 Lipase Level 250 73-393 U/L Normal 05-14-2018 [facility]) (33322) Comment: Performed By: #### CBC, ADIF F, ANEU ####[place] [address]#### L IP, CMP, GFR ####[place] [address] cmp on 2018-05-14 Alanine aminotransferase (ALT) 41 10-35 U/L High 05-14-2018 [facility] ([place] (0000 0) Comment: Performed By: #### CBC, ADIF F, ANEU ####[place] [id number]#### L IP, CMP, GFR ####[place] [address] Albumin 3.4 3.5-5.0 G/dL Low 05-14-2018 [facility] ([place] (16796) Comment: Performed By: #### CBC, ADIF F, ANEU ####[place] [address]#### L IP, CMP, GFR ####[place] [address] Albumin/Globulin Ratio 1.2 1.1-2.5 ratio Normal 018 [facility] ([place] (0000 0) Comment: Performed By: #### CBC, ADIF F, ANEU ####[place] [id number]#### L IP, CMP, GFR ####[place] [address] Alk Phos 56 40-135 U/L Normal 05-14-2018 [facility] ([place] (34761) Comment: Performed By: #### CBC, ADIF F, ANEU ####[place] [address]#### L IP, CMP, GFR ####[place] [address] Aspartate aminotransferase 42 10-40 U/L High [facility] ([place]) ([place]) (0000 0) Comment: Performed By: #### CBC, ADIF F, ANEU ####[place] [address]#### L IP, CMP, GFR ####[place] [address] Bili Total 0.5 0.2-1.0 mg/dL Normal 05-14-2018 [facility] ([place] (29966) Comment: Performed By: #### CBC, ADIF F, ANEU ####[place] [address]#### L IP, CMP, GFR ####[place] [address] BUN/Creatinine Ratio 14 7-27 ratio Normal 8 [facility] ([place] (03014) Comment: Performed By: #### CBC, ADIF F, ANEU ####[place] [address]#### L IP, CMP, GFR ####[place] [address] Calcium 8.0 8.4-10.2 mg/dL Low 05-14-2018 [facility] ([place] (88622) Comment: Performed By: #### CBC, ADIF F, ANEU ####[place] [address]#### L IP, CMP, GFR ####[place] [address] [place] [address] Chloride 104 98-107 mmol/L Normal 05-14-2018 [facility] ([place] (64343) Comment: Performed By: #### CBC, ADIF F, ANEU ####Bozena [address] [place], [place] [address]#### L IP, CMP, GFR ####[place] [address] CO2 23 22-29 mmol/L Normal 05-14-2018 [facility] ([place] (73389) Comment: Performed By: #### CBC, ADIF F, ANEU ####Bozena [address] [place] [address]#### L IP, CMP, GFR ####[place] [address] Creatinine 1.28 0.55-1.02 mg/dL High 05-14-2018 [facility] ([place] (09948) Comment: Performed By: #### CBC, ADIF F, ANEU ####[address] [place] [place] [address]#### L IP, CMP, GFR ####[place] [address] Electrolyte Balance 9.0 mEq/L Normal 05-14-2018 [facility] ([place] (08113) Comment: Performed By: #### CBC, ADIF F, ANEU ####[address] [place] [place] [id number]#### L IP, CMP, GFR ####[place] [address] Globulin 2.9 G/dL Normal 05-14-2018 [facility] ([place] (59049) Comment: Performed By: #### CBC, ADIF F, ANEU ####[address] [place] [place] 457157#### L IP, CMP, GFR ####[place] [address] Glucose mass conc 90 70-105 mg/dL Normal 05-14-2018 [facility] ([place]) (60846) Comment: Performed By: #### CBC, ADIF F, ANEU ####[address] [place] [place], [place] [address]#### L IP, CMP, GFR ####[address] [address] Potassium molar conc 4.6 3.5-5.1 mmol/L Normal 8 [facility] ([place]) (0000 0) Comment: Performed By: #### CBC, ADIF F, ANEU ####[place]487[place] [id number]#### L IP, CMP, GFR ####[place] [address] Protein 6.3 6.4-8.2 G/dL Low 05-14-2018 [facility] ([place] (19081) Comment: Performed By: #### CBC, ADIF F, ANEU ####[place] [id number]#### L IP, CMP, GFR ####[place] [address] Sodium 136 136-145 mmol/L Normal 05-14-2018 [facility] ([place] (87458) Comment: Performed By: #### CBC, ADIF F, ANEU ####[place] [id number]#### L IP, CMP, GFR ####[address] [address] Urea nitrogen 18 7-18 mg/dL Normal 05-14-2018 [facility] ([place]) (00801) Comment: Performed By: #### CBC, ADIF F, ANEU ####[place] [id number]#### L IP, CMP, GFR ####[address] [address] .gfr on 2018-05-14 GFR Non- 45 ml/min/1.73sqm Normal 05-14-2018 [facility] ([place]) (77002) Comment: Result Comment: GFR Populati on mean [...] #### CBC, ADIF F, ANEU ####[address] [place] [place], [place] [address]#### L IP, CMP, GFR ####[place] [address] [place] [address] GFR 55 ml/min/1.73sqm Normal - [facility] ([place]) (0000 0) Comment: Result Comment: GFR Populati [...] #### CBC, ADIF F, ANEU ####[address] [place] [place], [place] [address]#### L IP, CMP, GFR ####[place] [address] [place] [address] ua on 2018-05-13 UA Appear Slightly Cloudy Clear Invalid Interpretation 0 05-13-2018 [facility] ([place] (98409) Comment: Performed By: #### UA, PREGU , UAMICAO ####[address] [place], [place] [address] UA Blood Negative Negative Normal 05-13-2018 [facility] ([place]) (68997) Comment: Performed By: #### UA, PREGU , UAMICAO ####[address] [place], [place] [address] UA Leuk Est Small Negative Invalid Interpretation 05-13 [facility] ([place]) (81401) Comment: Performed By: #### UA, PREGU , UAMICAO ####[address] [place], [place] [address] UA Nitrite Negative Negative Normal 05-13-2018 [facility] ([place] (51209) Comment: Performed By: #### UA, PREGU , UAMICAO ####[address] [place], [place] [address] UA pH 7.5 Normal 05-13-2018 [facility] ([place]) (72803) Comment: Performed By: #### UA, PREGU , UAMICAO ####[address] [place], [place] [address] UA Protein Negative Negative Normal 05-13-2018 [facility] ([place] (19102) Comment: Performed By: #### UA, PREGU , UAMICAO ####[address] [place], [place] [address] UA Spec Grav 1.005 Invalid Interpretation Code 05-13-2018 [facility] ([place] (13418) Comment: Performed By: #### UA, PREGU , UAMICAO ####[address] [place], [place] [address] UA Specimen Type Clean Catch Normal 05-13-2018 [facility] ([place]) (67432) Comment: Performed By: #### UA, PREGU , UAMICAO ####[address] [place], [place] [address] UA Urobilinogen 0.2 E.U./dL Normal 05-13-2018 [facility] ([place]) (95140) Comment: Performed By: #### UA, PREGU , UAMICAO ####[address] [place], [place] [address] Urine, color Yellow Normal 05-13-2018 [facility] ([place]) (76789) Comment: Performed By: #### UA, PREGU , UAMICAO ####[address] [place], [place] [address] Urine, glucose Negative Negative mg/dL Normal 05-13-2018 [facility] ([place]) (0000 0) Comment: Performed By: #### UA, PREGU , UAMICAO ####[address] [place], [place] [address] Urine, ketones presence Negative Negative Normal 2017 [facility] ([place]) (12857) Comment: Performed By: #### UA, PREGU , UAMICAO ####[address] [place], [place] [address] Urine, Negative Negative {Ayla'U}/dL Normal 05-13-2018 [facility] urobilinogen Foundat ion ([place]) (54581) Comment: Performed By: #### UA, PREGU , UAMICAO ####[address] [place], [place] [address] pregu on 2018-05-13 HCG ( test) Ql (U) Negative Normal [facility] ([place]) (0000 0) Comment: Performed By: #### UA, PREGU , UAMICAO ####[address] [place], [place] [address] test HCG not Invalid 05-13-2018 [facility] (u) int detected. Interpretation Code [facility] ([place]) (58208) Comment: Performed By: #### UA, PREGU , UAMICAO ####[address] [place], [place] [address] cbc on 2018-05-13 Erythrocyte distribution 13.9 11.5-14.5 % Normal 05-13 [facility] width Auto Ratio (RBC) [facility] ([place]) (40047) Comment: Performed By: #### CBC, ADIF F, ANEU ####[address] [place] [address]#### L IP, CMP, GFR ####[place] [address] Erythrocytes (RBC) 5.57 4.20-5.40 10 6/mcL High 05-13-2018 [facility] ([place]) (0000 0) Comment: Performed By: #### CBC, ADIF F, ANEU ####[place] [address]#### L IP, CMP, GFR ####[place] [address] Hematocrit (HCT) 49.2 37.0-47.0 % High 05-13-2018 [facility] ([place]) (10769) Comment: Performed By: #### CBC, ADIF F, ANEU ####[place] [address]#### L IP, CMP, GFR ####[place] [address] Hemoglobin mass conc 17.1 12.0-16.0 G/dL High 8 [facility] ([facility] ([place]) (47243) Comment: Performed By: #### CBC, ADIF F, ANEU ####[place] [address]#### L IP, CMP, GFR ####[place] [address] MCH 30.6 27.0-31.2 pg Normal 05-13-2018 [facility] ([place]) (94873) Comment: Performed By: #### CBC, ADIF F, ANEU ####[place] [address]#### L IP, CMP, GFR ####[place] [address] MCHC mass conc (RBC) 34.7 33.0-37.0 G/dL Normal 8 [facility] ([place]) (0000 0) Comment: Performed By: #### CBC, ADIF F, ANEU ####[place] [address] [id number]#### L IP, CMP, GFR ####[place] [address] MCV 88.3 80.0-94.0 fL Normal 05-13-2018 [facility] ([place]) (60411) Comment: Performed By: #### CBC, ADIF F, ANEU ####[address] [place] [address]#### L IP, CMP, GFR ####[place] [address] Platelet mean volume 8.0 7.4-10.4 fL Normal 8 [facility] ([facility]) ([place]) (0000 0) Comment: Performed By: #### CBC, ADIF F, ANEU ####[place] [address]#### L IP, CMP, GFR ####[place] [address] Platelets 113 130-400 10 3/mcL Low 05-13-2018 [facility] ([place]) (77831) Comment: Performed By: #### CBC, ADIF F, ANEU ####[address] [place] [id number]#### L IP, CMP, GFR ####[place] [address] WBC (Leukocytes) 9.10 4.60-10.80 10 3/mcL Normal 05-13-2018 [facility] ([place]) (0000 0) Comment: Performed By: #### CBC, ADIF F, ANEU ####[place] [address]#### L IP, CMP, GFR ####[place] [address] .urinalysis microscopic (ao) on 2018-05-13 UA Bacteria 1+ /hpf Invalid Interpretation Code 05-13-2018 [facility] ([place]) (25857) Comment: Performed By: #### UA, PREGU , UAMICAO ####[address] [place], [place] [address] UA Squam LOADED None Seen Invalid 05-13-2018 [facility] Epithelial Interpretation [facility] (70333) Comment: Performed By: #### UA, PREGU , UAMICAO ####[address] [place], [place] [address] UA WBC LOADED None Seen Invalid Interpretation 018 [facility]) (56459) Comment: Performed By: #### UA, PREGU , UAMICAO ####[place] [address] [place], [place] [address] Urine, erythrocytes None Seen None Seen Normal 05-13-2018 [facility]) (0000 0) Comment: Performed By: #### UA, PREGU , UAMICAO ####[place] [address] [place], [place] [address] .neuabs on Neutrophil, Absolute 6.70 2.85-6.16 10 3/mcL High 8 [facility] ([place]) (78271) Comment: Performed By: #### CBC, ADIF F, ANEU ####[place] [id number]#### L IP, CMP, GFR ####[address] [address] .auto diff on 05-13 Basophils Auto #/vol 0.00 0.00-0.19 10 3/[facility] Normal 8 [facility] (Bld) [facility]) (64972) Comment: Performed By: #### CBC, ADIF F, ANEU ####[place] [id number]#### L IP, CMP, GFR ####[address] [address] Basophils/100 WBC Auto (d) 0.5 0.0-2.5 % Normal 0 05-13-2018 [facility]) (0000 0) Comment: Performed By: #### CBC, ADIF F, ANEU ####[place] [address]#### L IP, CMP, GFR ####[address] [address] Eosinophils 0.10 0.00-0.40 10 3/mcL Normal 05-13-2018 [facility] ([place]) (90747) Comment: Performed By: #### CBC, ADIF F, ANEU ####[place] [address]#### L IP, CMP, GFR ####[place] [address] Eosinophils/100 leukocytes 0.8 0.0-7.0 % Normal [facility] ([place]) (0000 0) Comment: Performed By: #### CBC, ADIF F, ANEU ####[place] [address]#### L IP, CMP, GFR ####[place] [address] Lymphocytes 1.60 0.77-3.85 10 3/[facility] Normal 05-13-2018 [facility] ([place]) (07523) Comment: Performed By: #### CBC, ADIF F, ANEU ####[place] [address]#### L IP, CMP, GFR ####[place] [address] Lymphocytes/100 leukocytes 18.0 10.0-50.0 % Normal [facility] ([place]) (45584) Comment: Performed By: #### CBC, ADIF F, ANEU ####[place] [address]#### L IP, CMP, GFR ####[place] [address] Monocytes 0.60 0.15-1.00 10 3/[facility] Normal 05-13-2018 [facility] ([place]) (76026) Comment: Performed By: #### CBC, ADIF F, ANEU ####[address] [place], [place] [address]#### L IP, CMP, GFR ####[address] [address] Monocytes/100 leukocytes 6.8 1.7-13.0 % Normal 05-13 [facility] ([place]) (0000 0) Comment: Performed By: #### CBC, ADIF F, ANEU ####[address] [address]#### L IP, CMP, GFR ####[address] [address] Neutrophils/100 WBC Auto 73.9 37.0-80.0 % Normal 05-13 [facility] (d) [facility] ([place]) (93737) Comment: Performed By: #### CBC, ADIF F, ANEU ####[address] [address]#### L IP, CMP, GFR ####[address] [address] urinalysis, routine on 2018-03-15 Bacteria LM.HPF #/area Few NS;RARE Abnormal [address] [place] [address] and (Urine sed) Irene Derek mora (19833) Comment: Performed By: #### GLUX #### Unless otherwise noted, all testing performed by [facility] l [address] [place] [address] CLIA: [id number] Entry Examiner: Ismael vines M.D. Bilirubin,Urine Negative NEG;NEGATIVE Normal 03-15-2018 [facility] and Irene Kermit pitals (91260) Comment: Performed By: #### GLUX #### Unless otherwise noted, all testing performed by [facility] l [address] [place] [address] CLIA: [id number] Entry Examiner: Ismael vines M.D. Blood,Urine Small NEG;NEGATIVE Abnormal 03-15-2018 [facility] (28430) Comment: Performed By: #### GLUX #### Unless otherwise noted, all testing performed by [place] [address] CLIA: [id number] Entry Examiner: Ismael vines M.D. Character Nom (U) Cloudy Normal 03-15-2018 [facility] ([id number]) Comment: Performed By: #### GLUX #### Unless otherwise noted, all testing performed by [place] [address] CLIA: [id number] Entry Examiner: Ismael vines M.D. Color Nom (U) Yellow Normal 03-15-2018 [facility] (62561) Comment: Performed By: #### GLUX #### Unless otherwise noted, all testing performed by [place] [address] CLIA: [id number] Entry Examiner: Ismael vines M.D. Glucose Ql (U) Negative NEG;NEGATIVE Normal 03-15-2018 [facility] (80918) Comment: Performed By: #### GLUX #### Unless otherwise noted, all testing performed by [place] [address] CLIA: [id number] Entry Examiner: Ismael vines M.D. Ketone,Urine Negative NEG;NEGATIVE Normal 03-15-[address] [facility] (38299) Comment: Performed By: #### GLUX #### Unless otherwise noted, all testing performed by [facility] [address] [place] [address] CLIA: [id number] Entry Examiner: Ismael vines M.D. Leuk.Esterase,Urine Large Negative Abnormal 03-15-2018 [facility] (33002) Comment: Performed By: #### GLUX #### Unless otherwise noted, all testing performed by [place] [address] CLIA: [id number] Entry Examiner: Ismael vines M.D. Nitrite,Urine Negative NEG;NEGATIVE Normal 03-15-2018 [facility] (15788) Comment: Performed By: #### GLUX #### Unless otherwise noted, all testing performed by [place] [address] CLIA: [id number] Entry Examiner: Ismael vines M.D. pH (U) 5.0 4.5-8.0 [pH] Normal 03-15-2018 [facility] (93970) Comment: Performed By: #### GLUX #### Unless otherwise noted, all testing performed by [place] [address] CLIA: [id number] Entry Examiner: Ismael vines M.D. Protein mass conc Negative NEG;NEGATIVE mg/dL Normal [address] [place] [address] ([facility] (24317) Comment: Performed By: #### GLUX #### Unless otherwise noted, all testing performed by [facility] [address] [place] [address] CLIA: [id number] Entry Examiner: Ismael vines M.D. RBC,Urine 8 0-5 /HPF High 03-15-2018 [facility] (37386) Comment: Performed By: #### GLUX #### Unless otherwise noted, all testing performed by [place] [phone] CLIA: [id number] Entry Examiner: Ismael vines M.D. Specific [place],Urine 1.015 1.003-1.029 Normal 03-15 [facility] (67530) Comment: Performed By: #### GLUX #### Unless otherwise noted, all testing performed by [place] [phone] CLIA: [id number] Entry Examiner: Ismael vines M.D. Squamous Epithelial 11 0-40 /HPF Normal 03-15-2018 [facility] (25048) Comment: Performed By: #### GLUX #### Unless otherwise noted, all testing performed by [place] [phone] CLIA: [id number] Entry Examiner: Ismael vines M.D. Urobilinogen,Urine < 2.0 <2 Normal 03-15-2018 [facility] (66795) Comment: Performed By: #### GLUX #### Unless otherwise noted, all testing performed by [place] [phone] CLIA: [id number] Entry Examiner: Ismael vines M.D. WBC,Urine 46 0-5 /HPF High 03-15-2018 [facility] (65332) Comment: Performed By: #### GLUX #### Unless otherwise noted, all testing performed by [place] [phone] CLIA: [id number] Entry Examiner: Ismael vines M.D. test,urine qual on 2018-03-15 HCG.beta subunit Negative Negative Normal 03-15-2018 [facility] ( test[facility] (10856[facility] Comment: Result Comment: Rapid test p rocedural [...] Unless otherwise noted, all testing performed by [facility] [address] [facility]. [place] [address] CLIA: [id number] Entry Examiner: Ismael vines M.D. lipase on 2018-02-16 9 Lipase enzyme act/vol 288 73-393 U/L Normal 03-15-20 18 [facility] (59665) Comment: Performed By: #### GLUX #### Unless otherwise noted, all testing performed by [facility] [address] [facility]. [place] [address] CLIA: [id number] Entry Examiner: Ismael vines M.D. ed cardiac troponin-i on 2018-03-15 Troponin I.cardiac mass < 15 < 45 ng/mL Normal 2017 [facility] (09473) Comment: Result Comment: Elevation of troponin indicates [...] Unless otherwise noted, all testing performed by [facility] [address] [place] [address] CLIA: [id number] Entry Examiner: Ismael vines M.D. comprehensive metabolic panel on 2018-03-15 Albumin mass conc 3.8 3.2-5.2 g/dL Normal 03-15-2018 [facility] (82957) Comment: Performed By: #### GLUX #### Unless otherwise noted, all testing performed by [facility] [address] [place] [address] CLIA: [id number] Entry Examiner: Ismael vines M.D. ALP enzyme act/vol 66 40-150 U/L Normal 03-15-2018 [facility] (52502) Comment: Performed By: #### GLUX #### Unless otherwise noted, all testing performed by [facility] [address] [place] [address] CLIA: [id number] Entry Examiner: Ismael vines M.D. ALT enzyme act/vol 56 14-65 U/L Normal 03-15-2018 [facility] (12173) Comment: Result Comment: This test re sult might be falsely depressed or falsely elevated on samples drawn from patients taking Sulfasalazine and Sulfapyridine. Venipuncture should occur pr ior to taking either of these drugs. Performed By: #### GLUX #### Unless otherwise noted, all testing performed by [facility] [address] [place] [address] CLIA: [id number] Entry Examiner: Ismael vines M.D. AST enzyme act/vol 51 0-45 U/L High 03-15-2018 [facility] (95721) Comment: Result Comment: This test re sult might be falsely depressed or falsely elevated on samples drawn from patients taking Sulfasalazine and Sulfapyridine. Venipuncture should occur pr ior to taking either of these drugs. Performed By: #### GLUX #### Unless otherwise noted, all testing performed by [place] [phone] CLIA: [id number] Entry Examiner: Ismael vines M.D. Bilirubin mass conc 0.5 0.3-1.2 mg/dL Normal 03-15-2018 [facility] (95715) Comment: Performed By: #### GLUX #### Unless otherwise noted, all testing performed by [place] [phone] CLIA: [id number] Entry Examiner: Ismael vines M.D. Calcium mass conc 9.7 8.4-10.2 mg/dL Normal 03-15-2018 [facility] (09396) Comment: Performed By: #### GLUX #### Unless otherwise noted, all testing performed by [place] [phone] CLIA: [id number] Entry Examiner: Ismael vines M.D. Chloride molar conc 105 98-108 mmol/L Normal 03-15-2018 [facility] (49203) Comment: Performed By: #### GLUX #### Unless otherwise noted, all testing performed by [place] [phone] CLIA: [id number] Entry Examiner: Ismael vines M.D. CO2 molar conc 26 21-32 mmol/L Normal 03-15-2018 [facility] (33299) Comment: Performed By: #### GLUX #### Unless otherwise noted, all testing performed by [place] [address] CLIA: [id number] Entry Examiner: Ismael vines M.D. Creatinine mass conc 1.67 0.40-1.10 mg/dL High 8 [facility] (15519) Comment: Performed By: #### GLUX #### Unless otherwise noted, all [facility] [address] [place] [address] CLIA: [id number] Entry Examiner: Ismael vines M.D. GFR/1.73 sq M predicted 40 >60 ml/min/1.73sq.m Low 03-15-2018 [facility] and among blacks [facility] (73994) rate/area (S/P/Bld) Comment: Result Comment: Amer ican GFR Calc Performed By: #### GLUX #### Unless otherwise noted, all testing performed by [facility] [address] [place] [address] CLIA: [id number] Entry Examiner: Ismael vines M.D. GFR/1.73 sq M predicted 33 >60 ml/min/1.73sq.m Low 03-15-2018 [facility] among non-blacks [facility] vol rate/area (S/P/Bld) (40236) Comment: Result Comment: Non- GFR Calc eGFR [...] Unless otherwise noted, all testing performed by [facility] [address] [place] [address] CLIA: [id number] Entry Examiner: Ismael vines M.D. Glucose mass conc 88 70-99 mg/dL Normal 03-15-2018 [facility] (74100) Comment: Result Comment: This test re sult might be falsely depressed or falsely elevated on samples drawn from patients taking Sulfasalazine and Sulfapyridine. Venipuncture should occur pr ior to taking either of these drugs. Performed By: #### GLUX #### Unless otherwise noted, all testing performed by [facility] [address] [place] [address] CLIA: [id number] Entry Examiner: Ismael vines M.D. Potassium molar conc 4.4 3.5-5.1 mmol/L Normal 8 [facility] (39083) Comment: Performed By: #### GLUX #### Unless otherwise noted, all testing performed by [facility] [address] [place] [address] CLIA: [id number] Entry Examiner: Ismael vines M.D. Protein mass conc 7.3 6.0-8.0 g/dL Normal 03-15-2018 [facility] (08438) Comment: Performed By: #### GLUX #### Unless otherwise noted, all testing performed by [facility] [address] [place] [address] CLIA: [id number] Entry Examiner: Ismael vines M.D. Sodium molar conc 137 135-145 mmol/L Normal 03-15-2018 [facility] (44638) Comment: Performed By: #### GLUX #### Unless otherwise noted, all testing performed by [facility] [address] [place] [address] CLIA: [id number] Entry Examiner: Ismael vines M.D. Urea nitrogen mass conc 30 8-25 mg/dL High 2017 [facility] (57601) Comment: Performed By: #### GLUX #### Unless otherwise noted, all testing performed by [facility] [address] [place] [address] CLIA: [id number] Entry Examiner: Ismael vines M.D. cbc with diff on 04-03-29 Basophils #/vol (Bld) 0.1 0-0.2 K/mcL Normal 03-15-20 18 [facility] (90170) Comment: Performed By: #### CBCDIF, E DCTNI, CMET, LIPASE #### Unless otherwise noted, all testing performed by [place] [address] CLIA: [id number] Entry Examiner: Ismael vines M.D. Basophils/100 WBC (Bld) 1.1 % Normal 2017 [facility] (56290) Comment: Performed By: #### CBCDIF, E DCTNI, CMET, LIPASE #### Unless otherwise noted, all testing performed by [place] [address] CLIA: [id number] Entry Examiner: Ismael vines M.D. Eosinophils #/vol (Bld) 0.2 0-0.5 K/mcL Normal 2017 [facility] (26707) Comment: Performed By: #### CBCDIF, E DCTNI, CMET, LIPASE #### Unless otherwise noted, all testing performed by [facility] [address] [place] [address] CLIA: [id number] Entry Examiner: Ismael vines M.D. Eosinophils/100 WBC (Bld) 3.2 % Normal - [facility] (07098) Comment: Performed By: #### CBCDIF, E DCTNI, CMET, LIPASE #### Unless otherwise noted, all testing performed by [facility] [address] [place] [address] CLIA: [id number] Entry Examiner: Ismael vines M.D. Erythrocyte distribution 13.4 10.0-14.4 % Normal 03-15 [facility] and width [facility] (RBC) [facility] (26862) Comment: Performed By: #### CBCDIF, E DCTNI, CMET, LIPASE #### Unless otherwise noted, all testing performed by [facility] [address] [place] [address] CLIA: [id number] Entry Examiner: Ismael vines M.D. Hematocrit Volume Fraction 47.8 34.4-44.8 % High [facility] and ([facility]) [facility] (91792) Comment: Performed By: #### CBCDIF, E DCTNI, CMET, LIPASE #### Unless otherwise noted, all testing performed by [facility] [address] [place] [address] CLIA: [id number] Entry Examiner: Ismael vines M.D. Hemoglobin mass conc 15.7 11.6-15.4 g/dL High 8 [facility] and ([facility]) [facility] (64016) Comment: Performed By: #### CBCDIF, E DCTNI, CMET, LIPASE #### Unless otherwise noted, all testing performed by [facility] [address] [place] [address] CLIA: [id number] Entry Examiner: Ismael vines M.D. Lymphocytes #/vol (Bld) 1.4 1.0-3.7 K/mcL Normal 2017 [facility] (26802) Comment: Performed By: #### CBCDIF, E DCTNI, CMET, LIPASE #### Unless otherwise noted, all testing performed by [facility] [address] [place] [address] CLIA: [id number] Entry Examiner: Ismael vines M.D. Lymphocytes/100 WBC (Bld) 24.7 % Normal 02-16 [facility] (95608) Comment: Performed By: #### CBCDIF, E DCTNI, CMET, LIPASE #### Unless otherwise noted, all testing performed by [place] [address] CLIA: [id number] Entry Examiner: Ismael vines M.D. MCH Entitic mass (RBC) 29.6 27.9-33.9 pg Normal 018 [facility] (86998) Comment: Performed By: #### CBCDIF, E DCTNI, CMET, LIPASE #### Unless otherwise noted, all testing performed by [place] [address] CLIA: [id number] Entry Examiner: Ismael vines M.D. MCHC mass conc (RBC) 32.8 33.1-35.1 g/dL Low 8 [facility] (98274) Comment: Performed By: #### CBCDIF, E DCTNI, CMET, LIPASE #### Unless otherwise noted, all testing performed by [facility] [address] [place] [address] CLIA: [id number] Entry Examiner: Ismael vines M.D. MCV Entitic volume 90.5 82.6-98.9 FL Normal 03-15-2018 [facility] and (RBC) [facility] (12088) Comment: Performed By: #### CBCDIF, E DCTNI, CMET, LIPASE #### Unless otherwise noted, all testing performed by [place] [address] CLIA: [id number] Entry Examiner: Ismael vines M.D. Metamyelocytes/100 WBC (Bld) 2.2 0 % High 0 03-15-2018 [facility] (05383)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 more stress because of declining relationship with her cousin, they are arguing a lot. retail shift manager is also concerned with patient's medication [...] Medical History: Diagnosis Date ? Acquired thrombocytopenia ([facility]) [facility]/Darren Shaikh ? Acute abdominal pain 11/17/2018 [facility] Stacy ALEXIS,Ac Escobar ? Acute bronchitis 12/21/2018 Info Gained From: [facility] ED report --- Bob Nye MD ? Acute kidney injury (HCC) 05/22/2018 [facility]/Jonatan Chiu DO ? Acute UTI 10/14/2018 [facility]/Moi De La Cruz MD ? Anxiety ? Bronchospasm 12/21/2018 Info Gained From: [facility] ED report --- Bob Nye MD ? Calcaneal spur of right foot 2017 Documented on x-ray ? Chronic kidney disease, stage III (moderate) ([facility]) 2000 ? Congestive heart failure (CHF) ([facility]) [facility]/Darren Shaikh ? Dehydration 12/12/2018 Info Gained From: [facility] ED --- Shilpa Jensen ? Depression ? Epilepsy ([facility]) 08/06/2011 [facility]- Dr. Chopra ? Epilepsy ([facility]) 1993 ? Facet degeneration of lumbar region 10/14/2018 [facility]/Moi De La Cruz MD Mild facet degenerative changes seen in the lower lumbar spine ? Fatty liver [facility]/Joe Mendieta MD Mild fibrofatty changes of the liver ? Fluid collection (edema) in the arms, legs, hands and feet 03/09/2018 Dr valentina Chopra ? Gastritis determined by endoscopy 12/29/2016 Dr. GonzalezTgokxm-Bhnanpnty-hqvwjbyqtcgtm nonbleeding with biopsy ? Hepatic steatosis [facility]/Heidy Jara MD Mild ? Hiatal hernia 12/29/[address] Lobo grade 4 ? Hypercholesterolemia [facility]/Jonatan Chiu DO ? Hypertension 2000 2000-present ? Insomnia [facility]/Darren Shaikh ? Kidney stone [facility]/Darren Shaikh ? Low back pain 10/14/2018 [facility]/Moi De La Cruz MD ? Lung nodule 12/15/2017 0.5 cm pleural based nodule in right middle lobe. Mild linear atelectasis ? Mitral valve prolapse [facility]/Darren Shaikh ? Rectus diastasis [facility]/Heidy Jara MD Present with small wide necked perumbical ventral containing fat. ? Second degree burn of foot 04/23/2018 Right Foot - [facility] ? Seizure (HCC) [facility]/Jono ALEXIS, Saulius ? Sleep apnea ? Stroke (HCC) 2001 mild ? Tremor ? Upper abdominal pain 12/03/2018 Info Gained From: /[facility]/R Report --- Murray ALEXIS,Ac Escobar Past Surgical History: Procedure Laterality Date ? Conner pH capsule placement 02/01/2017 Dr. Lobo ? BREAST REDUCTION 2000 bilateral ? [facility]perforating gast[facility] ? [...] She had a meeting on Wednesday with Project Inspector and assisted living and they are waiting to hear back to see if she qualifies to live in the [facility]. Tremors: Patient continues to be off of the Valproic acid until she is seen by Neurology in [facility],Dr. Chopra, her apt is 03/16/2019. [...] has been having an increase in headaches. Project Inspector is making notes of all of these symptoms so she can let the neurologist know at her apt. The following portions of the patient's history were reviewed and updated as appropriate: allergies,current medications, past family history, past medical history, past social history, past surgical history and problem list. Past Medical History: Diagnosis Date ? Acquired thrombocytopenia ([facility]) [facility]/Darren Shaikh ? Acute kidney injury (HCC) 05/22/2018 [facility]/Jonatan Chiu DO ? Anxiety ? Calcaneal spur of right foot 2017 Documented on x-ray ? Chronic kidney disease, stage III (moderate) ([facility]) 2000 ? Congestive heart failure (CHF) ([facility]) [facility]/Darren Shaikh ? Depression ? Epilepsy ([facility]) 08/06/2011 [facility]- Dr. Chopra ? Epilepsy ([facility]) 1993 ? Facet degeneration of lumbar region 10/14/2018 [facility]/Jono ALEXIS, Moi Mild facet degenerative changes seen in the lower lumbar spine ? Fatty liver [facility]/Joe Mendieta MD Mild fibrofatty changes of the liver ? Fluid collection (edema) in the arms, legs, hands and feet 03/09/2018 Dr valentina Chopra ? Gastritis determined by endoscopy 12/29/2016 Dr. LeeFwlign-Lennnqwsg-gwtifhjxxwlpp nonbleeding with biopsy ? Hepatic steatosis [facility]/Heidy Jara MD Mild ? Hiatal hernia 12/29/[address] Lobo grade 4 ? Hypercholesterolemia [facility]/Jonatan Chiu DO ? Hypertension 2001 2001-present ? Insomnia [facility]/Darren Shaikh ? Kidney stone [facility]/Darren Shaikh ? Lung nodule 12/15/2017 0.5 cm pleural based nodule in right middle lobe. Mild linear atelectasis ? Mitral valve prolapse [facility]/Darren Shaikh ? Rectus diastasis [facility]/Heidy Jara MD Present with small wide necked perumbical ventral containing fat. ? Second degree burn of foot 04/23/2018 Right Foot - [facility] ? Sleep apnea ? Stroke (HCC) 2001 mild ? Tremor Past Surgical History: Procedure Laterality Date ? Conner pH capsule placement 02/01/2017 Dr. Lobo ? BREAST REDUCTION 2000 bilateral ? [facility]-nonperforating gastritis ? [...] ED/admit notes faxed To Neuro at # [phone] Pre-auth Amandeep Aldrich prior auth. received until [...] Via: Telephone ? Patient was Discharged From [facility] ? Discharge Diagnosis: HTN, anxiety, seizures ? [...] 03/15/19 to ED stating seizures. Transferred to [place] observation. Describes turned to change her clothes [...] Seek Emergent Care with EMS/911/ED, When to Agricultural Specialist and As Directed by MANAGER ELECTRICAL/Surgeon/Specialist Additional Information Discussed: Yes Providers/Clinics: Home Health Care Arrangements Initiated: No Follow up with Valentina Chopra MD Specialty: Neurology [address] [place] [address] Future Appointments Date Time Provider Department Center [...] 03/31/2019 2:44 PM EDT [facility] from [facility] phoned, beginning evaluation for assisted [...] Chest pain at rest Nedra Brewer [facility] RamiroJaninaCHAYA [address] [place], [place] [address] [place], [place] Phone: [phone] Phone: Fax: Status Reason Specialty Diagnoses / Referred By Referred To Procedures Contact Contact Pending Review Cardiology Diagnoses Chest pain at rest Mattie Hayden Procedures Echocardiogram complete MD [address] [place] [address] Status Reason Specialty Diagnoses / Referred By Referred To Procedures Contact Contact Pending Review Radiology Diagnoses Chest pain at rest Mattie Hayden Procedures NM Myocardial Perfusion Multiple SPECT MD [address] [place] [address] Status Reason Specialty Diagnoses / Referred By Contact Refe rred To Contact Procedures Closed Cardiology Diagnoses Essential hypertension Chronic kidney disease, stage III (moderate) (HCC) Chest pain at rest Nedra SanchesnMattieJanina, CHAYA Krishnan MD [address] [place] [address] [place] [address] Phone: Fax: Discharge Instructions Meena Alicea RN [...] Log into your personal health record on [email or web address] and enter M289 in the Education box to learn more about Seizure: Care Instructions. Current as of: March 20, 2018 Content Version: 12.0 ? 8126-1555 [facility]. Care instructions adapted under license by your healthcare professional. If you have questions about a medical condition or this instruction, always ask your healthcare professional. [facility] disclaims any warranty or liability for your [...] BE BASED ON THE PRIMARY CLINICAL RECORDS. [employer] provides no warranty or guarantee of the accuracy or completeness of information in this document. UNRECOGNIZED CONTENT PROVIDED BELOW FOR UNRECOGNIZED SECTION INFORMATION SOURCE DATE CREATED AUTHOR AUTHOR'S ORGANIZATIO N 12/06/2018 [facility] DATE CREATED AUTHOR AUTHOR'S ORGANIZATIO N 04/12/2018 [facility] DATE CREATED AUTHOR AUTHOR'S ORGANIZATIO N 04/12/2018 [facility] DATE CREATED AUTHOR AUTHOR'S ORGANIZATIO N 04/22/2018 [facility] DATE CREATED AUTHOR AUTHOR'S ORGANIZATIO N 05/15/2018 [facility] DATE CREATED AUTHOR AUTHOR'S ORGANIZATIO N 12/25/2018 [facility] DATE CREATED AUTHOR AUTHOR'S ORGANIZATIO N 05/[facility]/2019 [facility] DATE CREATED AUTHOR AUTHOR'S ORGANIZATIO N 07/20/2019 [facility] DATE CREATED AUTHOR AUTHOR'S ORGANIZATIO N 12/02/2019 [facility] DATE CREATED AUTHOR AUTHOR'S ORGANIZATIO N 12/07/2019 [facility] DATE CREATED AUTHOR AUTHOR'S ORGANIZATIO N 08/02/2020 [employer] UNRECOGNIZED CONTENT PROVIDED BELOW FOR UNRECOGNIZED SECTION [...] and allow cool down until at least mcfp back to the pre exercise hear rate. [...] and allow cool down until at least mcfp back to the pre exercise hear rate. [...] to consider following up with the general admissions specialist.in this encounterAssessment & Plan Note - [...] your blood pressure was elevated at the shipping and receiving weigher's office today because you had not taking your Cardura as the shipping and receiving weigher thought. Your blood pressure has decreased since [...] include nonsteroidals. The nonsteroidal class includes the owrh-aqg-blkihue medications of Motrin, Advil, Aleve, ibuprofen, Naprosyn as well as all the prescription nonsteroidals. Typically we follow individuals with chronic kidney disease a minimum of 2-3 times a year. As the kidney disease progresses we monitor closer. Typically start with a minimum of twice a year lab work and increase to every 3 months if indicated. Referral to a kidney specialist or purchasing intern is obtained with sudden declining kidney function, [...] been out of bed since arriving at [facility]. She lives with her cousin. She further [...] toxicity. She follows with Dr. Gillette from [facility]. She was also using Keppra 750 mg [...] to 1000 mg twice a day. 3. [facility] seizure precautions. 4. Monitor frequency alcohol seizures. [...] Portions of this chart was created using [employer] voice recognition software. Occasional wrong-word or sound-like [...] Meena Way RN - 03/16/2019 7[facility] from [place] with X-Ray information with Mattie from [place] per instructions from NIÉS Le to be scanned into patient's record. Meena Way RN - 03/16/2019 7:41 AM EDTPatikelechi's medications prior to admission are present in the med room in a cooler and need to be reviewed with this nurse and patient. There are reportedly (per patient) medications therein that she is allergic to. Per retail shift manager, admission is not complete Meena Way RN - 03/16/2019 7:39 AM EDTPatikelechi is awake and alert, sitting in bed and able to express her needs. She reports that the tremors she is having at bedside report time are her baseline. No seizure activity reported. She also reports that she will be going to [facility] in [place] soon. documented in this encounter UNRECOGNIZED CONTENT [...] hypertension Chronic kidney disease, stage III (moderate) ([facility]) Chest pain at rest Spring, Mattie Chen, MANAGER ELECTRICAL MD [address]ella [address] [place], [place] [address] [place] [address] Phone: Fax: Reason Comments Hypertension Sore Throat X 3 days Status Reason Specialty Diagnoses / Referred By Referred To Procedures Contact Contact Pending Review Radiology Diagnoses Chest pain at rest Mattie Hayden Procedures NM Myocardial Perfusion Study Single - Stress Only NM Myocardial Perfusion Multiple SPECT MD [address] [place] [address] Reason Comments Transition Of Care Pt reports [...] 03/16/2019 4:18 PM EDTAssociated Order(s): EEG (STANDARD) [facility] EEG Report Reason for EEG: Seizures. [...] IP CONSULT TO NEUROLOGY Neurology Inpatient Consult [facility] 03/16/2019 Patient: Reema Motta Date of : 1975 (43 y.o.) Referring Provider: Refer to consult order in electronic medical record PCP: Nedra Brewer CNP ASSESSMENT: 43 y.o. female presented to [facility] on 03/16/2019 with seizures. PLAN: Seizure (HCC) [...] toxicity. She follows with Dr. Gillette from [facility]. She was also using Keppra 750 mg [...] to 1000 mg twice a day. 3. [facility] seizure precautions. 4. Monitor frequency alcohol seizures. [...] Portions of this chart was created using [employer] voice recognition software. Occasional wrong-word or sound-like [...] This occurred after she was discharged from [facility] where her Depakote was discontinued because [...] Medical History: Diagnosis Date ? Acquired thrombocytopenia ([facility]) [facility]/Darren Shaikh ? Acute kidney injury ([facility]) 05/22/2018 [facility]/Jonatan Chiu DO ? Anxiety ? Calcaneal spur of right foot 2017 Documented on x-ray ? Chronic kidney disease, stage III (moderate) ([facility]) 2000 ? Congestive heart failure (CHF) ([facility]) [facility]/Darren Shaikh ? Depression ? Epilepsy ([facility]) 08/06/2011 [facility]- Dr. Chopra ? Epilepsy ([facility]) 1993 ? Facet degeneration of lumbar region 10/14/2018 [facility]/Jono ALEXIS, Saulius Mild facet degenerative changes seen in the lower lumbar spine ? Fatty liver [facility]/Joe Mendieta MD Mild fibrofatty changes of the liver ? Fluid collection (edema) in the arms, legs, hands and feet 03/09/2018 Dr valentina Chopra ? Gastritis determined by endoscopy 12/29/2016 Dr. GonzalezMgfcps-Obbqtndrz-swaunyyeixhoa nonbleeding with biopsy ? Hepatic steatosis [facility]/Heidy Jara MD Mild ? Hiatal hernia 12/29/[address] Lobo grade 4 ? Hypercholesterolemia [facility]/Jonatan Chiu DO ? Hypertension 2000 2000-present ? Insomnia [facility]/Darren Shaikh ? Kidney stone [facility]/Darren Shaikh ? Lung nodule 12/15/2017 0.5 cm pleural based nodule in right middle lobe. Mild linear atelectasis ? Mitral valve prolapse [facility]/Darren Shaikh ? Motor seizure ([facility]) 03/16/2019 INFO GAINED FROM: /[facility] --- LOZANO DO,CAREN ? Rectus diastasis [facility]/Heidy Jara MD Present with small wide necked perumbical ventral containing fat. ? Second degree burn of foot 04/23/2018 Right Foot - [facility] ? Sleep apnea ? Stroke (HCC) 2001 mild ? Tremor Past Surgical History: Procedure Laterality Date ? Conner pH capsule placement 02/01/2017 Dr. Lobo ? BREAST REDUCTION 2000 bilateral ? EGD 12/29/2016 Dr. Lobo-[facility]-grade 4 hiatal hernia-nonperforating gastritis ? ESOPHAGEAL MANOMETRY [...] file Gets together: Not on file Attends [employer] service: Not on file Active member of [...] Oral Daily ? venlafaxine 37.5 mg Oral [facility] PRN Medications: senna OBJECTIVE: Physical Examination: BP 138/79 Pulse 73 Temp 98.6 ?F (37 ?C) (Oral) Resp 14 Ht 4' 8 Wt 68.5 kg (151 lb) [id number]% BMI 33.85 kg/m? Patient is awake and [...]
--- OUTSIDE RECORDS SUMMARY | 2020-08-04 13:06 | XMS RPT_ITS | CCD ---
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 MDIFF ### [address] [address] Lymphocytes/100 WBC (Bld) 37.0 13.0 - 44.0 % Normal [facility] (00 000) Comment: Performed By: #### IFF ### [address] [address] Metamyelocytes/100 WBC 0.08 0.00 - 0.00 x10E9/L Abnormal 10-25 [facility] (Bld) [facility] (07602) Comment: Performed By: #### MDIFF ### [address] [address] MONOCYTE 0.46 0.10 - 1.00 x10E9/L Normal 10-25-2019 [facility] (29036) Comment: Performed By: #### MDIFF ### [address] [address] Monocytes/100 WBC (Bld) 6.0 2.0 - 10.0 % Normal 10-25 [facility] (74037) Comment: Performed By: #### MDIFF ### [address] [address] SEG NEUTROPHIL 3.57 1.20 - 7.00 x10E9/L Normal 10-25-2019 [facility] (34215) Comment: Performed By: #### MDIFF ### [address] [address] lipase on 8 Lipase [Catalytic 39 9 - 82 U/L Normal 10-25-2019 [facility] (38241) Comment: Result Comment: Venipuncture immediately after or during the administration of Metamizole may lead to falsely low results. Testing should be performed immediately prior to Metamizole dosing. T-vixiuf-w-benzoquinone imin e (metabolite of Acetaminophen) will generate erroneously lo w results in samples for patients that have taken toxic doses of acetaminophen. Performed By: #### LIPAS ### [address] [address] hcg,beta-quant on 2 HCG,BETA-QUANT <2 Normal 10-25-2019 [facility] (19209) Comment: Result Comment: Low-level po sitive HCG [...] usi ng a different test methodology at [facility] than other [facility]. Direct result comparison should only be made within t he same method. REF VALUES NON FEMALE <5 MALES <5 Performed By: #### HCGQU ### [address] [address] comprehensive panel on 2019-10-25 Albumin [Mass/Vol] 4.1 3.4 - 5.0 g/dL Normal 10-25-2019 [facility] (77670) Comment: Performed By: #### CMP ####[address] [id number] ALP [Catalytic activity/Vol] 56 33 - 110 U/L Normal 0 10-25-2019 [facility] (00 000) Comment: Performed By: #### CMP ####S [address] [address] ALT [Catalytic activity/Vol] 23 7 - 45 U/L Normal 0 10-25-2019 [facility] (00 000) Comment: Result Comment: Patients graciela ated with Sulfasalazine may generate falsely decreased results fo r ALT. Performed By: #### CMP ####S [address] [address] Anion gap [Moles/Vol] 14 10 - 20 mmol/L Normal 10-25-19 [facility] (29637) Comment: Performed By: #### CMP ####S [address] [address] AST [Catalytic activity/Vol] 24 9 - 39 U/L Normal 0 10-25-2019 [facility] (00 000) Comment: Performed By: #### CMP ####S [address] [address] Bilirubin [Mass/Vol] 0.4 0.0 - 1.2 mg/dL Normal 0 [facility] (28881) Comment: Performed By: #### CMP ####S [address] [address] Calcium [Mass/Vol] 8.7 8.6 - 10.3 mg/dL Normal 10-25-2019 [facility] (16184) Comment: Performed By: #### CMP ####S [address] [address] Chloride [Moles/Vol] 100 98 - 107 mmol/L Normal 0 [facility] (64947) Comment: Performed By: #### CMP ####S [address] [address] Creatinine [Mass/Vol] 1.23 0.50 - 1.05 mg/dL High 2019 [facility] (00 000) Comment: Performed By: #### CMP ####S [address] [address] GFR- AM. 57 >60 mL/min/1.73m2 Abnormal 10-25-2019 [facility] (45656) Comment: Result Comment: CALCULATIONS OF ESTIMATED GFR ARE PERFORMED USING THE MDRD STUDY EQUATIO N FOR THE IDMS-TRACEABLE CREATININE ME THODS. CLIN CHEM 2007;53:766-72 Performed By: #### CMP ####S [address] [address] GFR-NON AM. 47 >60 mL/min/1.73m2 Abnormal 2019 [facility] (00 000) Comment: Performed By: #### CMP ####S [address] [address] Glucose [Mass/Vol] 96 74 - 99 mg/dL Normal 10-25-2019 [facility] (61296) Comment: Performed By: #### CMP ####[address] [address] HCO3 (Bld) [Moles/Vol] 28 21 - 32 mmol/L Normal 020 [facility] (10967) Comment: Performed By: #### CMP ####[address] [address] Potassium [Moles/Vol] 3.7 3.5 - 5.3 mmol/L Normal 10-25-19 20 [facility] (00 000) Comment: Performed By: #### CMP ####S [address] [address] Protein [Mass/Vol] 6.3 6.4 - 8.2 g/dL Low 10-25-2019 [facility] (51957) Comment: Performed By: #### CMP ####[address] [address] Sodium [Moles/Vol] 138 136 - 145 mmol/L Normal 10-25-2019 [facility] (31713) Comment: Performed By: #### CMP ####S [address] [address] Urea nitrogen [Mass/Vol] 12 6 - 23 mg/dL Normal 10-25 [facility] (92081) Comment: Performed By: #### CMP ####S [address] [address] clinical intervention - pharmacy on 2019-10-25 Clinical Pharmacist's Clinical Intervention: Norm al 10-25-2019 [facility] Intervention - Active and Pending Medications: [facility] Morphine Injectable, DOSE = 4 mg IntraVenous Push Once, 25-Oct-2019, Active (17468) Pharmacist intervention: Contacted nurse Type of recommendation: [...] minutes Electronic Signatures: Odilia Holcomb ([facility]) (Signed 25-Oct-2019 14:15) Authored: Pharmacist's Clinical Intervention Last Updated: 25-Oct-2019 14:15 by Odilia Holcomb ([facility]) chest 1 view on CHEST 1 VIEW Normal 10-25-2019 [facility] ST[facility]Y: CHEST 1 VIEW; 10/25/2019 2:12 pm INDICATION: shorntess of breath. COMPARISON: 03/22/2019 ACCESSION NUMBER(S): [id number] ORDERING CLINICIAN: TENISHA LANE FINDINGS: CHEST AP [...] distribution 14.0 11.5 - 14.5 % Normal [facility] width (RBC) [Ratio] Health (21567) Comment: Performed By: #### CBCDF ### [address] [address] Hematocrit (Bld) [Volume 41.2 36.0 - 46.0 % Normal [facility] fraction] Health (00 000) Comment: Performed By: #### CBCDF ### [address] [address] Hemoglobin (Bld) 14.0 12.0 - 16.0 g/dL Normal 10-25-2019 [facility] [Mass/Vol] Health (0 0000) Comment: Performed By: #### CBCDF ### [address] [address] MCHC (RBC) [Mass/Vol] 33.9 32.0 - 36.0 g/dL Normal 2019 [facility] (00 000) Comment: Performed By: #### CBCDF ### [address] [address] MCV (RBC) [Entitic vol] 91 80 - 100 fL Normal 2019 [facility] (25455) Comment: Performed By: #### CBCDF ### [address] [address] Nucleated RBC/100 WBC 0.1 /100 WBC Normal 10-25-19 [facility] (Bld) [Ratio] (17742 ) Comment: Performed By: #### CBCDF ### [address] [address] Platelets (Bld) [#/Vol] 103 150 - 450 x10E9/L Low 2019 [facility] (00 000) Comment: Performed By: #### CBCDF ### [address] [address] RBC (Bld) [#/Vol] 4.55 4.00 - 5.20 x10E12/L Normal 10-25-2019 [facility] (00 000) Comment: Performed By: #### CBCDF ### [address] [address] WBC (Bld) [#/Vol] 7.6 4.4 - 11.3 x10E9/L Normal 10-25-2019 [facility] (58070) Comment: Performed By: #### CBCDF ### [address] [address] DIFFERENTIAL SEE MANUAL DIFF Normal 10-25-2019 [facility] (38975) Comment: Performed By: #### CBCDF ### [address] [address] 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 [facility]: [id number] EXP: 06/2021 LOT# [id number] History of Present Illness 44-year-old with abnormal [...] NEEDED; Therapy: 09Feb2019 to Recorded Rx By: KESYHA; Dispense: 30 D ays ; #:90; Refill: 0; SHARLENE = N; Record; Last Updated By: Minerva Hauser; 08/07/2019 10:46:04 AM Depakote 500 MG Oral Tablet Delayed Release; TAKE 1 TABLET T WICE DAILY; Therapy: [id number] to Recorded Dispense: 0 Days ; #: Suffic ient Tablet Delayed Release; Refill: 0; SHARLENE = Y; Record; Last Updated By: Salma Montgomery; 05/31/2013 9:56:09 AM Depakote ER 500 MG Oral Tablet Extended Release 24 Hour; [place] E 1 TABLET BY MOUTH TWICE A DAY; Therapy: [id number] to Recorded Rx By: KEYSHA; Dispense: 30 [...] Record; Last Updated By: Mnierva Hauser; 08/07/2019 10:53:56 AM Famotidine 40 MG Oral Tablet; TAKE 1 (ONE) TABLET (40 MG TOT AL) BY MOUTH DAILY; Therapy: [id number] to Recorded Rx By: MENDY; Dispense: 30 D ays ; #:30; Refill: 0; SHARLENE = N; Record; Last Updated By: Minerva Hauser; 08/07/2019 10:53:56 AM Keppra 1000 MG Oral Tablet; TAKE 1 TABLET TWICE DAILY; Therapy: [id number] to Recorded Dispense: 0 Days ; #:60 Tabl et; Refill: 0; SHARLENE = Y; Record; Last Updated By: Salma Montgomery; 05/31/2013 9:56:09 AM Keppra 750 MG Oral Tablet; TAKE 1 TABLET BY MOUTH TWICE A DA Y; Therapy: [id number] to Recorded Rx By: KEYSHA; Dispense: 30 [...] TAKE 1 TABLET DAILY DIRECTE D; Therapy: [id number] to Recorded Dispense: 0 Days ; #:30 Tabl et; Refill: 0; SHARLENE = N; Record; Last Updated By: Salma Montgomery; 05/31/2013 9:56:09 AM LORazepam 1 MG Oral Tablet; TAKE 1 TABLET BY MOUTH FOUR TIME S A DAY; Therapy: 60Evc5651 to Recorded Rx By: KEYSHA; Dispense: 30 D ays ; #:120; Refill: 0; SHARLENE = N; Record; Last Updated By: Minerva Hauser; 08/07/2019 10:53:56 AM LORazepam 1 MG Oral Tablet; TAKE 1 TABLET EVERY 6 TO 8 HOURS NEEDED; Therapy: [id number] to Recorded Dispense: 0 Days ; #: [...] MOUTH EVERY DAY AT SUPPER TIME; Therapy: [id number] to Recorded Rx By: KEYSHA; Dispense: 30 D ays ; #:30; Refill: 0; SHARLENE = N; Record; Last Updated By: Minerva Hauser; 08/07/2019 10:53:56 AM Potassium Chloride ER 10 MEQ Oral Capsule Extend ed Release; TAKE 1 CAPSULE BY MOUTH TWICE A DAY; Therapy: [id number] to Recorded Rx By: MENDY; Dispense: 30 D ays ; #:60; Refill: 0; SHARLENE = N; Record; Last Updated By: Minerva Hauser; 08/07/2019 10:53:56 AM Therems-H Oral Tablet; TAKE 1 TABLET DAILY; Therapy: [id number] to Recorded Dispense: 0 Days ; #:30 Tabl et; Refill: 0; SHARLENE = N; Record; Last Updated By: Salma Montgomery; 05/31/2013 9:56:09 AM Vitals Vital Signs Recorded: 60Fec2074 10:03AM Fnwfynxp473 Schnwzzbi13 Height4 ft 8 in Zzfkrr990 lb BMI Ekbiajseyw17.01 BSA Calculated1.67 Physical Exam General: None acute [...] 7.5. The Mirena IUD was loaded into pin inserter regulator and introduced using appropriate technique. Strings trimmed [...] Status: Hold For - Scheduling Requested for: [id number] Ordered Stat;For: Encounter for removal and reinsertion [...] Triage - ED Quick Triage: Normal 09-07-2019 [facility] Are You no H chely (73153) Have You Given In The Last 6 [...] obeys commands Best Verbal Response: (V5) oriented [place] Score: 15 Cough lasting greater than 3 [...] Arrival: stretcher Mode of Arrival: ambulance Agency: [facility] ([place] [facility]) Arrival From: assisted living facility ([facility]) Accompanied By: self Language: Spoken Language Preferred: Kittitian Reading Language Preferre d: Kittitian Podiatric Foot And Ankle Specialist Requested: no ring facer was requested MDRO: History of MDRO: no [...] Risk Screen - Preferred Language: Normal 2018 [facility] Preferred Language: [facility] Preferred Language for Discussing Health Care (patient/desig nee)Kittitian (99633) Advanced Directives: Advance Directive/DNRno Advance Directive Information [...] Learning Preferencesverbal instruction Cultural Considerationsnone Developmental Considerationsnone Temple Considerationsnone Learning Assessment (Other Learner): Learning Assessment (Other Learner): Other learner availableno Pressure Injury/TB/Substance: Pressure Injury: Pressure Injury Present on Admissionno Do you have a coughno Substance Use Current or Former 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: 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, 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, Alcohol, Street Drugs Admission Risk Screen: Significant IndicatorsComplete CAGE: CAGE: Is this an injured patient at a Trauma Center ([facility]/[place]ma/[place]): no Electronic Signatures: Maria Elena Kramer (RN) (Signed 07-Sep-2019 19:29) Authored: Preferred Language, Advanced Directives, Family Vi olence Adult, Learning Assessment (Patient), Learning Assessment (Ot her Learner), Pressure Injury/TB/Substance, CAGE Last Updated: 07-Sep-2019 19:29 by Maria Elena Kramer (RN) red cell morphology on 2019-09-07 RBC morphology finding Nom NORMAL Normal [facility] ([facility]) (22484) Comment: Performed By: #### HH #### [facility] [address] [place] [address] provider note - ed v2 on 2019-09-07 Provider Note - Provider Note - ED v2: Normal 1 11-07-2018 [facility] ED v2 Chart Review: [facility] ED NOTES (61374) ED NOTES: The patient was sent from [...] Description:epileptic seizure Description:anxiety Description:major depressive disorder Description:hypertension HUMAN RESOURCE ADVISER: Is : no(1) Is : no(1) REVIEW [...] right upper quadrant Code:R10.11 Dispostion: discharged Type: [facility] ATTESTATION CRITICAL CARE TIME Is this a critically ill patient: no Electronic Signatures: Nicko Cortez) (Signed 07-Sep-2019 21:48) Authored: Provider Note - ED v2 Last Updated: 07-Sep-2019 21:48 by Nicko Cortez) References: 1. Data Referenced From Triage - ED 07-Sep-2019 19:17 manual differential on 2019-09-07 % EOSINOPHIL 0.0 0.0 - 6.0 % Normal 09-07-2019 [facility] (52379) Comment: Performed By: #### HH #### [address] [address] % SEG NEUTROPHIL 65.0 40.0 - 80.0 % Normal 09-07-2019 [facility] (29485) Comment: Result Comment: Percent diff erential counts (%) should be interpreted in the context of the absolute cell counts (cells/L). Performed By: #### HH #### [address] [address] ANC 3.90 1.20 - 7.70 x10E9/L Normal 09-07-2019 [facility] (67587) Comment: Performed By: #### HH #### [address] [address] BAND NEUTROPHIL 0.06 0.00 - 0.70 x10E9/L Normal 09-07-2019 [facility] (22077) Comment: Performed By: #### HH #### [address] [address] BASOPHIL 0.00 0.00 - 0.10 x10E9/L Normal 09-07-2019 [facility] (62718) Comment: Performed By: #### HH #### [address] [address] EOSINOPHIL 0.00 0.00 - 0.70 x10E9/L Normal 09-07-2019 [facility] (30856) Comment: Performed By: #### HH #### [address] [address] LYMPHOCYTE 1.59 1.20 - 4.80 x10E9/L Normal 09-07-2019 [facility] (01490) Comment: Performed By: #### HH #### [address] [address] MONOCYTE 0.41 0.10 - 1.00 x10E9/L Normal 09-07-2019 [facility] (90271) Comment: Performed By: #### HH #### [address] [address] SEG NEUTROPHIL 3.84 1.20 - 7.00 x10E9/L Normal 09-07-2019 [facility] (12009) Comment: Performed By: #### HH #### [address] [address] Band form neutrophils/100 1.0 0.0 - 5.0 % Normal 08-19 [facility] 350 WBC (Bld) [place] ([address]007) Comment: Ordering Provider: NICKO TORRES [address]1987 Performed By: #### HH #### [address] [address] Basophils/100 WBC (Bld) 0.0 0.0 - 2.0 % Normal 2018 [facility] [address] [place] (06742) Comment: Ordering Provider: NICKO TORRES 54095 Performed By: #### HH #### [address] [address] Lymphocytes/100 WBC (Bld) 27.0 % Normal 08-19 [facility] [address] [place] (60616) Comment: Reference Range: 13.0 - 44.0 Ordering Provider: NICKO TORRES 17231 Performed By: #### HH #### [address] [address] Monocytes/100 WBC (Bld) 7.0 2.0 - 10.0 % Normal 09-07 [facility] [address] [place] (51860) Comment: Ordering Provider: NICKO TORRES 07048 Performed By: #### HH #### [address] [address] lipase, serum on 05-09-21 Lipase [Catalytic 40 9 - 82 U/L Normal 09-07-2019 [facility] 350 activity/Vol] [place] est (25256) Comment: Venipuncture immediately aft er or during the administration of Metamizole may lead to falsely low resu lts. Testing should be performed immediately prior to Metamizole dosing. C-wpsjbt-j-benzoquinone imine (metabolite of Acetaminophen) will generate erroneously low results in samples for patients that have taken toxic doses of acetaminophen. Ordering Provider: NICKO TORRES 49792 Result Comment: Venipuncture immediately after or during the administration of Metamizole may lead to falsely low results. Testing should be performed immediately prior to Metamizole dosing. B-cbvtuu-a-benzoquinone imin e (metabolite of Acetaminophen) will generate erroneously lo w results in samples for patients that have taken toxic doses of acetaminophen. Performed By: #### HH #### [address] [address] comprehensive panel on 2019-09-07 Albumin [Mass/Vol] 4.1 3.4 - 5.0 g/dL Normal 09-07-2019 [facility] (88245) Comment: Performed By: #### HH #### [address] [address] ALT [Catalytic activity/Vol] 19 7 - 45 U/L Normal 1 11-07-2018 [facility] (00 000) Comment: Result Comment: Patients graciela ated with Sulfasalazine may generate falsely decreased results fo r ALT. Performed By: #### HH #### [address] [address] AST [Catalytic activity/Vol] 21 9 - 39 U/L Normal 1 11-07-2018 [facility] (00 000) Comment: Performed By: #### HH #### [address] [address] GFR- AM. 46 >60 mL/min/1.73m2 Abnormal 09-07-2019 [facility] (07125) Comment: Result Comment: CALCULATIONS OF ESTIMATED GFR ARE PERFORMED USING THE MDRD STUDY EQUATIO N FOR THE IDMS-TRACEABLE CREATININE ME THODS. CLIN CHEM 2007;53:766-72 Performed By: #### HH #### [address] [address] GFR-NON AM. 38 >60 mL/min/1.73m2 Abnormal 2018 [facility] (00 000) Comment: Performed By: #### HH #### [address] [address] HCO3 (Bld) [Moles/Vol] 32 21 - 32 mmol/L Normal 019 [facility] (75245) Comment: Performed By: #### HH #### [address] [address] ALP [Catalytic 55 33 - 110 U/L Normal 09-07-2019 [facility] 350 activity/Vol] [facility] est (03359) Comment: Ordering Provider: NICKO TORRES 84010 Performed By: #### HH #### [address] [address] Anion gap [Moles/Vol] 13 10 - 20 mmol/L Normal 09-07-20 19 [facility] [address] [place] (24260) Comment: Ordering Provider: NICKO TORRES 70523 Performed By: #### HH #### [address] [address] Bilirubin [Mass/Vol] 0.3 0.0 - 1.2 mg/dL Normal 9 [facility] [address] [place] (14399) Comment: Ordering Provider: NICKO TORRES 18709 Performed By: #### HH #### [address] [address] Calcium [Mass/Vol] 9.7 8.6 - 10.3 mg/dL Normal 09-07-2019 [facility] [address] [place] (47993) Comment: Ordering Provider: NICKO TORRES 39504 Performed By: #### HH #### [address] [address] Chloride 97 98 - 107 mmol/L below low 09-07-2019 [facility] 350 [Moles/Vol] threshold [place] (49913) Comment: Ordering Provider: NICKO TORRES 54179 Performed By: #### HH #### [address] [address] Creatinine 1.47 mg/dL above high 09-07-2019 [facility] 350 [Mass/Vol] threshold [place] (89702) Comment: Reference Range: 0.50 - 1.05 Ordering Provider: NICKO TORRES 43342 Performed By: #### HH #### [address] [address] Glucose [Mass/Vol] 94 74 - 99 mg/dL Normal 09-07-2019 [facility] [address] [place] (21053) Comment: Ordering Provider: NICKO TORRES 89607 Performed By: #### HH #### [address] [address] Potassium 4.4 3.5 - 5.3 mmol/L Normal 09-07-2019 [facility] 350 [Moles/Vol] [place] ([address]4511) Comment: Ordering Provider: NICKO TORRES 40347 Performed By: #### HH #### [address] [address] Protein 6.3 6.4 - 8.2 g/dL below low 09-07-2019 [facility] 350 [Mass/Vol] threshold [place] (48693) Comment: Ordering Provider: NICKO TORRES 43286 Performed By: #### HH #### [address] [address] Sodium [Moles/Vol] 138 136 - 145 mmol/L Normal 09-07-2019 [facility] [address] [place] (19289) Comment: Ordering Provider: NICKO TORRES 03165 Performed By: #### HH #### [address] [address] Urea nitrogen 20 6 - 23 mg/dL Normal 09-07-2019 [facility] 350 [Mass/Vol] [place] (49944) Comment: Ordering Provider: NICKO Sanchez Performed By: #### HH #### [address] [address] complete blood count + differential on 2019-09-07 Erythrocyte 15.2 See Below % above high 09-07-2019 [facility] 350 distribution width threshold [place] (65958) (RBC) [Ratio] Comment: Reference Range: 11.5 - 14.5 Ordering Provider: NICKO Sanchez Hematocrit (Bld) [Volume 38.5 See Below % 09-07 [facility] [place] fraction] (60195) Comment: Reference Range: 36.0 - 46.0 Ordering Provider: NICKO Sanchez Hemoglobin (Bld) 13.1 See Below g/dL 09-07-2019 [facility] [Mass/Vol] [place] (90616) Comment: Reference Range: 12.0 - 16.0 Ordering Provider: NICKO Sanchez MCHC (RBC) [Mass/Vol] 34.0 See Below g/dL 09-07-20 [facility] [address] ([id number]) Comment: Reference Range: 32.0 - 36.0 Ordering Provider: NICKO Sanchez MCV (RBC) [Entitic vol] 91 80 - 100 fL 2018 [facility] [address] ([address]) Comment: Ordering Provider: NICKO Sanchez Platelets (Bld) 92 150 - 450 {x10E9/L} below low [facility]-07-[facility] [#/Vol] threshold [place] ([address]) Comment: Ordering Provider: NICKO TORRES [address]134 RBC (Bld) [#/Vol] 4.25 See Below {x10E12/L} 09-07-2019 [facility] [address] ([address]) Comment: Reference Range: 4.00 - 5.20 Ordering Provider: NICKO TORRES 16647 WBC (Bld) [#/Vol] 5.9 4.4 - 11.3 {x10E9/L} 09-07-2019 [facility] [address] ([address]) Comment: Ordering Provider: NICKO Sanchez SEE MANUAL DIFF 09-07-2019 [facility] [address] ([address]) Comment: Ordering Provider: NICKO Guadarrama03 cbc and differential on 2019-09-07 DIFFERENTIAL SEE MANUAL DIFF Normal 09-07-2019 [facility] (29742) Comment: Performed By: #### HH #### [address] [address] Erythrocyte distribution 15.2 11.5 - 14.5 % High [facility] width (RBC) [Ratio] Health (89878) Comment: Performed By: #### HH #### [address] [address] Hematocrit (Bld) [Volume 38.5 36.0 - 46.0 % Normal [facility] fraction] [facility] (00 000) Comment: Performed By: #### HH #### [address] [address] Hemoglobin (Bld) 13.1 12.0 - 16.0 g/dL Normal 09-07-2019 [facility] [Mass/Vol] [facility] (0 0000) Comment: Performed By: #### HH #### [address] [address] MCHC (RBC) [Mass/Vol] 34.0 32.0 - 36.0 g/dL Normal 2018 [facility] (00 000) Comment: Performed By: #### HH #### [address] [address] MCV (RBC) [Entitic vol] 91 80 - 100 fL Normal 2018 [facility] (36636) Comment: Performed By: #### HH #### [address] [address] Platelets (Bld) [#/Vol] 92 150 - 450 x10E9/L Low 2018 [facility] (88035) Comment: Performed By: #### HH #### [address] [address] RBC (Bld) [#/Vol] 4.25 4.00 - 5.20 x10E12/L Normal 09-07-2019 [facility] (00 000) Comment: Performed By: #### HH #### [address] [address] WBC (Bld) [#/Vol] 5.9 4.4 - 11.3 x10E9/L Normal 09-07-2019 [facility] (72885) Comment: Performed By: #### HH #### [address] [address] No panel information on 2019-09-07 Albumin BCP dye 4.1 3.4 - 5.0 g/dL 09-07-2019 [facility] 350 [Mass/Vol] [place] ([address]) Comment: Ordering Provider: NICKO TORRES 07813 ALT With P-5'-P [Catalytic 19 7 - 45 U/L [facility] [address] activity/Vol] (71612 ) Comment: Patients treated with Sulfas alazine may generate falsely decreased results for ALT. Ordering Provider: NICKO TORRES 29683 AST With P-5'-P [Catalytic 21 9 - 39 U/L [facility] [address] activity/Vol] (78722 ) Comment: Ordering Provider: NICKO TORRES 80498 Basophils (Bld) 0.00 See Below {x10E9/L} 09-07-2019 [facility] [#/Vol] [place] ([address]) Comment: Reference Range: 0.00 - 0.10 Ordering Provider: NICKO TORRES 99849 CO2 [Moles/Vol] 32 21 - 32 mmol/L 09-07-2019 [facility] ([address]) Comment: Ordering Provider: NICKO Sanchez Eosinophils (Bld) 0.00 See Below {x10E9/L} 09-07-2019 [facility] 350 [#/Vol] [place] ([facility]) Comment: Reference Range: 0.00 - 0.70 Ordering Provider: NICKO Sanchez Eosinophils/100 WBC (Bld) 0.0 0.0 - 6.0 % 08-19 [facility] ([facility]) Comment: Ordering Provider: NICKO Sanchez Lymphocytes (Bld) 1.59 See Below {x10E9/L} 09-07-2019 [address] [place] [address] [#/Vol] [place] ([facility]) Comment: Reference Range: 1.20 - 4.80 Ordering Provider: NICKO Sanchez Monocytes (Bld) 0.41 See Below {x10E9/L} 09-07-2019 [place] [address] [#/Vol] [place] ([address]) Comment: Reference Range: 0.10 - 1.00 Ordering Provider: NICKO Sanchez Segmented neutrophils/100 65.0 See Below % 08-19 [place] [address] WBC (Bld) [place] ([address]) Comment: Reference Range: 40.0 - 80.0 Percent differential counts (%) should be interpreted in the context o f the absolute cell counts (cells/L). Ordering Provider: NICKO TORRES 30414 3.84 See Below {x10E9/L} 09-07-2019 [facility] [address] ([facility]) Comment: Reference Range: 1.20 - 7.00 Ordering Provider: NICKO Sanchez 38 >60 {mL/min/1.73m2} Abnormal 09-07-2019 [facility] [address] ([address]) Comment: Ordering Provider: NICKO Sanchez 0.06 See Below {x10E9/L} 09-07-2019 [facility] [address] ([address]) Comment: Reference Range: 0.00 - 0.70 Ordering Provider: NICKO Sanchez NORMAL 09-07-2019 [place] [address] [place] ([address]) Comment: Ordering Provider: NICKO Sanchez 3.90 See Below {x10E9/L} 09-07-2019 [place] [address] [place] ([address]) Comment: Reference Range: 1.20 - 7.70 Ordering Provider: NICKO Sanchez 46 >60 {mL/min/1.73m2} Abnormal 09-07-2019 [facility] [address] ([address]) Comment: CALCULATIONS OF ESTIMATED GF R ARE PERFORMED USING THE MDRD STUDY EQUATION FOR THE IDMS-TRACEABLE CREAT ININE METHODS. CLIN CHEM 2007;53:766-72 Ordering Provider: NICKO Sanchez knee cmplt, 4 or more views on 2019-08-21 KNEE CMPLT, 4 OR Normal [address] [place] [address] MORE VIEWS [facility] ([id number] STUDY: KNEE; COMPLT, 4 OR MORE VIEWS;Left; 08/20/2019 10:00 pm INDICATION: fall. COMPARISON: None. ACCESSION NUMBER(S): [id number] ORDERING CLINICIAN: TENISHA LANE FINDINGS: Four views left knee. No acute fracture or malalignment. Bones appear normally min eralized. No significant degenerative changes. No knee effusion. Soft tissues are within normal limits. IMPRESSION: Normal left knee radiography. Electronically signed by: HEIDY JARA MD No panel information on 2019-08-21 XR Knee 4 Interpreted by: HEIDY Del [place] 2018 [facility] [address] JARA08/20/19 [place] ([address]) 22:23MRN: [id number] Name: [facility] STUDY:KNEE; COMPLT, 4 OR MORE VIEWS;Left; 08/20/2019 10:00 pm INDICATION:fall. COMPARISON:None. ORDERING CLINICIAN:TENISHA LANE FINDINGS:Four views left knee. No acute fracture or malalignment. Bones appear normally mineralized.No significant degenerative changes. No knee effusion. Soft tissuesare within normal limits. IMPRESSION:Normal left knee radiography. Electronically signed by: HEIDY JARA 08/20/19 22:23 Comment: Ordering Provider: TENISHA Mckoy [address] triage - ed on 2018 Triage - ED Quick Triage: Normal 08-20-2019 [facility] Are You no H ealth (27106) Have You Given In The Last 6 [...] BMI (kg/m2): 39.266 Calculated BSA (m2) 1.77 [place] Coma Scale: Best Eye Response: (E4) spontaneous [...] assisted living facility Accompanied By: self and quality assurance specialist Language: Spoken Language Preferred: Kittitian Reading Language Preferre d: Kittitian PRIMARY ASSESSMENT ABCD Normal Findings: airway open and patent PAST MEDICAL HISTORY Immunization History: Last Known Tetanus Immunization: Less than 5 years TRAVEL HISTORY Travel Exposure History: NO travel to [facility] in the past 30 days Past Medical [...] Risk Screen - Preferred Language: Normal 2018 [facility] Preferred Language: [facility] Preferred Language for Discussing Health Care (patient/desjose rodriguez)Kittitian ([id number]) Advanced Directives: Advance Directive/DNRno Family Violence Adult: Abuse Screen: Are you or have you been threatened or abused physically, em otionally, or sexually by anyoneno Learning Assessment (Patient): Learning Assessment (Patient): Patient is Able to be Assessed for Learningyes Factors Influencing Readiness to Learnmotivation to learn Factors that Impact Ability to Learnnone Devices/Methods Used to Communicatenone Learning Preferencesaudio Cultural Considerationsnone Developmental Considerationsnone Temple Considerationsnone Learning Assessment (Other Learner): Learning Assessment (Other Learner): Other learner availableno Pressure Injury/TB/Substance: Pressure Injury: Pressure Injury Present on Admissionno Do you have a coughno Substance Use Current or Former 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: 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, 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, Alcohol, Street Drugs Admission Risk Screen: Significant IndicatorsComplete CAGE: CAGE: Is this an injured patient at a Trauma Center ([facility]/[place]): no Electronic Signatures: Megan Linton (RN) (Signed 20-Aug-2019 21:45) Authored: Preferred Language, Advanced Directives, Family Vi olence Adult, Learning Assessment (Patient), Learning Assessment (Ot her Learner), Pressure Injury/TB/Substance, CAGE Last Updated: 20-Aug-2019 21:45 by Megan Linton (RN) provider note - ed v2 on 2019-08-20 Provider Note - Provider Note - ED v2: Normal 1 10-20-2018 [facility] ED v2 Chart Review: [facility] ED NOTES ([id number]) ED NOTES: HPI: Patient is a resident of a [facility] sn[facility] and just prior to arrival [...] and oriented x4 , GCS 15 , 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 Sensation and motor function [...] Description:epileptic seizure Description:anxiety Description:major depressive disorder Description:hypertension HUMAN RESOURCE ADVISER: Is : no(1) Is : no(1) RESULTS/VITAL [...] SIGNS: T PRBP SpO2O2(LPM) %FiO2 Method 20-Aug-2019 21:02:[id number]/75 95 room air, no respira tory support [...] patient: no Electronic Signatures: Tenisha Lane I (OIL BURNER MECHANIC-NEUROPSYCHOLOGY SERVICE DIRECTOR) (Signed 20-Aug-2019 22:33) Authored: Provider Note - ED v2 Last Updated: 20-Aug-2019 22:[address] I (OIL BURNER MECHANIC-NEUROPSYCHOLOGY SERVICE DIRECTOR) References: 1. Data Referenced From Triage - ED 20-Aug-2019 21:02 ct head wo contrast on 2019-08-20 CT HEAD WO Normal 08-20-2019 [facility] CONTRAST [facility]: [facility] ([id number]) STUDY: CT HEAD WO CONTRAST; CT C-SPINE WO CONTRAST;; 08/20/2019 9:58 pm INDICATION: fall. COMPARISON: 03/18/[address] cervical spine from 03/16/2019. ACCESSION NUMBER(S): [id number]; [id number] ORDERING CLINICIAN: TENISHA LANE TECHNIQUE: Noncontrast CT [...] 08[facility]20-[facility]: [facility] ([id number]) STUDY: CT HEAD WO CONTRAST; CT C-SPINE WO CONTRAST;; 08/20/2019 9:58 pm INDICATION: fall. COMPARISON: 03/18/[address] cervical spine from 03/16/2019. ACCESSION NUMBER(S): [id number]; [id number] ORDERING CLINICIAN: TENISHA LANE TECHNIQUE: Noncontrast CT [...] Head Interpreted by: HEIDY Del Rio [address]08/20/19 [place] ([id number]) contrast 22:22MRN: [id number] Name: REEMA MOTTA STUDY:CT HEAD WO CONTRAST; CT C-SPINE WO CONTRAST;; 08/20/2019 9:58 pm INDICATION:fall. COMPARISON:03/18/[address] cervical spine from 03/16/2019. [id number] ORDERING CLINICIAN:TENISHA LANE TECHNIQUE:Noncontrast CT exams of [...] 08/20/19 22:22 Comment: Ordering Provider: TENISHA Mckoy [address] Interpreted by: HEIDY Del [place] 08-20-[address]08/20/19 22:22MRN: [id number]) [id number] Name: REEMA MOTTA STUDY:CT HEAD WO CONTRAST; CT C-SPINE WO CONTRAST;; 08/20/2019 9:58 pm INDICATION:fall. COMPARISON:03/18/[address] cervical spine from 03/16/2019. 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 maintainer - office visit on 2019-08-07 HUMAN RESOURCE ADVISER - Chief Complaint Normal 08-07-2019 [email or web address] Office Visit ([id number]) PT HERE TODAY FOR US RESULTS History [...] MG TOT AL) BY MOUTH DAILY; Therapy: [id number] to Recorded Rx By: MENDY; Dispense: 30 D ays ; #:30; Refill: 0; SHARLENE = N; Record; Last Updated By: Minerva Hauser; 08/07/2019 10:53:56 AM Keppra 750 MG Oral Tablet; TAKE 1 TABLET BY MOUTH TWICE A DA Y; Therapy: [id number] to Recorded Rx By: KEYSHA; Dispense: 30 [...] MOUTH FOUR TIME S A DAY; Therapy: 35Pkh1514 to Recorded Rx By: KEYSHA; Dispense: 30 [...] MOUTH EVERY DAY AT SUPPER TIME; Therapy: 18Iup3720 to Recorded Rx By: KEYSHA; Dispense: 30 D ays ; #:30; Refill: 0; SHARLENE = N; Record; Last Updated By: Minerva Hauser; 08/07/2019 10:53:56 AM Potassium Chloride ER 10 MEQ Oral Capsule Extend ed Release; TAKE 1 CAPSULE BY MOUTH TWICE A DAY; Therapy: 82Zme2663 to Recorded Rx By: MENDY; Dispense: 30 D ays ; #:60; Refill: 0; SHARLENE = N; Record; Last Updated By: Minerva Hauser; 08/07/2019 10:53:56 AM Vitals Vital Signs Recorded: 07Aug2019 11:01AM Jgrdmvji086 Ymhlxzdex59 Height4 ft 7.12 in Hatorj336 lb 4.83 oz BMI Qzbigmyfco53.11 BSA Calculated1.65 Physical Exam General: None acute distress Eye: Intraocular movements are intact HEENT: Normocephalic Respiratory: Respirations are nonlabored Gastrointestinal: Nondistended Musculoskeletal: Normal range of motion Neurologic: Alert and orientedx3 Psychiatric: Cooperative appropriate mood and affect. Results/Data Ultrasound Pelvis Transabdom inal With Meiqvecsojma41Vok7543 10:44Anel Livingston Test NameResultFlagReference Ultrasound Pelvis Transabdominal With Transvaginal(Report) Interpreted by: TIFFANIE PARK 08/03/19 22:49 Patient Name: REEMA MOTTA STUDY: US PELVIS TRANSABDOMINAL WITH TRANSVAGINAL; 08/03/2019 10:44 am INDICATION: PELVIC PAIN. COMPAR BRIGIDA: None. ACCESSION NUMBER (S): [id number] ORDERING CLINICIAN: ANEL MORGAN TECHNIQUE: Transabdominal and [...] [Volume 36.5 36.0 - 46.0 % Normal [facility]] Health (00 000) Comment: Performed By: #### HH #### [address] [address] Hemoglobin (Bld) 12.3 12.0 - 16.0 g/dL Normal 08-04-2019 [facility] [Mass/Vol] Health (0 0000) Comment: Performed By: #### HH #### [address] [address] us pelvis transabdominal with transvagin al on 2019-08-03 US PELVIS Normal 08-03-2019 [facility] TRANSABDOMINAL WITH [facility] TRANSVAGINAL ([id number]) STUDY: US PELVIS TRANSABDOMINAL WITH TRANSVAGINAL; 08/03/2019 10:44 am INDICATION: PELVIC PAIN. COMPARISON: None. ACCESSION NUMBER(S): [id number] ORDERING CLINICIAN: ANEL MORGAN TECHNIQUE: Transabdominal and [...] 2019-08-03 Interpreted by: TIFFANIE NAVARRO Normal 08-03-2019 [address]RIAL1 22:49MRN: Jaspal ([id number]) [id number] Name: REEMA MOTTA STUDY:US PELVIS TRANSABDOMINAL WITH [...] PCR. Not Detected Not Detected Normal [address] [facility] (56757) Comment: Result Comment: Xpert CT/NG Assay performance has not been evaluated in patients less than 14 years of age. Performed By: #### [id number] #### MARCUS RemHemo [facility] [place] [address] Gonorrhoeae by PCR Not Detected Not Detected Normal 07-19 [facility] (84225) Comment: Result Comment: Xpert CT/NG Assay performance has not been evaluated in patients less than 14 years of age. Performed By: #### [id number] #### MARCUS RemHemo [facility] [place] [address] ct abdomen/pelvis w/ contrast on 2019-07-05 CT Abdomen/Pelvis w/ Exam Date/Time: Normal [facility] Contrast 07/05/2019 13:33 EDT [facility] Reason for Exam: s tem ([id number]) ABDOMINAL PAIN AND TENDERNESS Report STUDY: CT Abdomen/Pelvis w/ Contrast; 07/05/2019 1:33 pm INDICATION: ABDOMINAL PAIN AND TENDERNESS. COMPARISON: 12/02/2018 ACCESSION NUMBER(S): [id number] ORDERING CLINICIAN: Holden Velasco TECHNIQUE: Contiguous axial [...] Magnesium [Mass/Vol] 2.0 1.6-2.4 mg/dL Normal 9 [facility] () Comment: Performed By: #### [id number] #### MARCUS RemHemo [address] [place] [address] egfr on 2019-03-25 GFR/1.73 sq M predicted >60 mL/min/{1.73_m2} Normal 03-25-2019 [facility] among non-blacks [facility] (85392) (S/P/Bld) [Vol rate/Area] Comment: Order Comment: Order Added b y Discern Expert. Performed By: #### [id number] #### MARCUS RemHemo [address] [place] [id number] GFR/1.73 sq M predicted 50 mL/min/1.73 m2 Normal 0 03-25-2019 [facility] among non-blacks [facility] (00795) (S/P/Bld) [Vol rate/Area] Comment: Order Comment: Order Added b y Discern Expert. Performed By: #### [id number] #### MARCUS RemHemo [address] [place] [address] bmp on 2019-03-25 Anion gap [Moles/Vol] 10 10-20 mEq/L Normal 03-25-20 19 [facility] () Comment: Performed By: #### [id number] #### MARCUS RemHemo [address] [place] [address] Calcium [Mass/Vol] 8.7 8.6-10.3 mg/dL Normal 03-25-2019 [facility] () Comment: Performed By: #### [id number] #### MARCUS RemHemo [address] [place] [address] Chloride [Moles/Vol] 108 98-107 mEq/L High 9 [facility] () Comment: Performed By: #### [id number] #### MARCUS RemHemo [address] [place] [address] CO2 [Moles/Vol] 25.0 21.0-32.0 mEq/L Normal 03-25-2019 [facility] () Comment: Performed By: #### [id number] #### MARCUS WilcoxHemo [address] [place] [address] Creatinine [Mass/Vol] 1.2 0.5-1.1 mg/dL High 03-25-20 [facility] () Comment: Performed By: #### [id number] #### MARCUS RemHemo [facility] [place] [address] Glucose [Mass/Vol] 97 70-99 mg/dL Normal 03-25-2019 [facility] (38783) Comment: Performed By: #### [id number] #### MARCUS RemHemo [facility] [place] [address] Potassium [Moles/Vol] 4.5 3.5-5.3 mEq/L Normal 03-25-20 [facility] () Comment: Performed By: #### [id number] #### MARCUS RemHemo [facility] [place] [address] Sodium [Moles/Vol] 138 136-145 mEq/L Normal 03-25-2019 [facility] () Comment: Performed By: #### [id number] #### MARCUS RemHemo [facility] [place] [address] Urea nitrogen [Mass/Vol] 14 6-23 mg/dL Normal 03-25 [facility] ( 000) Comment: Performed By: #### [id number] #### MARCUS RemHemo [facility] [place] [address] Urea nitrogen/Creatinine 11.7 5.4-30.0 ratio Normal 03-25 [facility] [Mass ratio] [facility] (59755) Comment: Performed By: #### [id number] #### MARCUS RemHemo [facility] [place] [address] magnesium on 6-07 Magnesium [Mass/Vol] 2.1 1.6-2.4 mg/dL Normal 9 [facility] (00 000) Comment: Performed By: #### [id number] #### MARCUS WilcoxHemo [address] [place] [address] egfr on 2019-03-24 GFR/1.73 sq M predicted 55 mL/min/1.73 m2 Normal 0 03-24-2019 [facility] among non-blacks [facility] (30844) (S/P/Bld) [Vol rate/Area] Comment: Order Comment: Order Added b y Discern Expert. Performed By: #### [id number] #### MARCUS JeriHemo [facility] [place] [address] GFR/1.73 sq M predicted >60 mL/min/{1.73_m2} Normal 03-24-2019 [facility] among non-blacks [facility] (07747) (S/P/Bld) [Vol rate/Area] Comment: Order Comment: Order Added b y Discern Expert. Performed By: #### [id number] #### MARCUS JeriHemo [facility] [place] [address] cbc w/ auto diff on 2019-03-24 Erythrocyte distribution 13.4 11.5-14.5 % Normal 03-24 [facility] width (RBC) [Ratio] Health System (53046) Comment: Performed By: #### [id number] #### MARCUS JeriHemo [facility] [place] [address] Hematocrit (Bld) [Volume 36.3 36.0-48.0 % Normal 03-24 [facility] fraction] Health Sys tem (59012) Comment: Performed By: #### [id number] #### MARCUS JeriHemo [address] [place] [address] Hemoglobin (Bld) 12.3 12.0-16.0 G/DL Normal 03-24-2019 [facility] [Mass/Vol] Health Sy [facility] (76318) Comment: Performed By: #### [id number] #### MARCUS JeriHemo [address] [place] [address] MCH (RBC) [Entitic mass] 30.4 27.0-31.0 pg Normal 03-24 [facility] (00 000) Comment: Performed By: #### [id number] #### MARCUS WilcoxHemo [facility] [place] [address] MCHC (RBC) [Mass/Vol] 33.7 33.0-37.0 G/DL Normal 03-24-20 [facility] (00 ) Comment: Performed By: #### [id number] #### MARCUS WilcoxHemo [facility] [place] [address] MCV (RBC) [Entitic vol] 90.1 78.0-100.0 fL Normal 03-24 [facility] (14341) Comment: Performed By: #### [id number] #### MRACUS Kenyono [facility] [place] [address] Platelet mean volume 8.3 7.4-11.0 fL Normal [facility] (Bld) [Entitic vol] System (78213) Comment: Performed By: #### [id number] #### MARCUS JeriHemo [facility] [place] [address] Platelets (Bld) [#/Vol] 101 130-400 E3/mcL Low 2018 [facility] () Comment: Performed By: #### [id number] #### MARCUS Kenyono [facility] [place] [address] RBC (Bld) [#/Vol] 4.04 3.90-5.40 E6/mcL Normal 03-24-2019 [facility] () Comment: Performed By: #### [id number] #### MARCUS WilcoxHemo [facility] [place] [address] WBC (Bld) [#/Vol] 3.9 3.6-11.0 E3/mcL Normal 03-24-2019 [facility] () Comment: Performed By: #### [id number] #### MARCUS WilcoxHemo [facility] [place] [address] bmp on 2019-03-24 Anion gap [Moles/Vol] 9 10-20 mEq/L Low 03-24-20 [facility] (32117) Comment: Performed By: #### [id number] #### MARCUS RemHemo [address] [place] [address] Calcium [Mass/Vol] 8.2 8.6-10.3 mg/dL Low 03-24-2019 [facility] (05083) Comment: Performed By: #### [id number] #### MARCUS RemHemo [address] [place] [address] Chloride [Moles/Vol] 110 98-107 mEq/L High 9 [facility] (00 000) Comment: Performed By: #### [id number] #### MARCUS RemHemo [address] [place] [address] CO2 [Moles/Vol] 23.0 21.0-32.0 mEq/L Normal 03-24-2019 [facility] (00 000) Comment: Performed By: #### [id number] #### MARCUS RemHemo [address] [place] [address] Creatinine [Mass/Vol] 1.1 0.5-1.1 mg/dL Normal 03-24-20 19 [facility] (00 000) Comment: Performed By: #### [id number] #### MARCUS RemHemo [address] [place] [address] Glucose [Mass/Vol] 92 70-99 mg/dL Normal 03-24-2019 [facility] (84386) Comment: Performed By: #### [id number] #### MARCUS RemHemo [address] [place] [address] Potassium [Moles/Vol] 4.1 3.5-5.3 mEq/L Normal 03-24-20 19 [facility] (00 000) Comment: Performed By: #### [id number] #### MARCUS RemHemo [address] [place] [address] Sodium [Moles/Vol] 138 136-145 mEq/L Normal 03-24-2019 [facility] (00 000) Comment: Performed By: #### [id number] #### MARCUS RemHemo [address] [place] [address] Urea nitrogen [Mass/Vol] 11 6-23 mg/dL Normal 03-24 [facility] (00 000) Comment: Performed By: #### [id number] #### MARCUSShawn Kenyon[address] [address] Urea nitrogen/Creatinine 10.0 5.4-30.0 ratio Normal 03-24 [facility] [Mass ratio] [facility] (86865) Comment: Performed By: #### [id number] #### MARCUS Jeri[address] [address] auto diff on 03-24 Basophils (Bld) [#/Vol] 0.0 0.0-0.2 E3/mcL Normal 2018 [facility] ([address]27) Comment: Order Comment: Order Added b y Discern Expert. Performed By: #### [id number] #### MARCUS Wilcox[address] [address] Basophils/100 WBC (Bld) 0.1 0.0-2.0 % Normal 2018 [facility] (00 000) Comment: Order Comment: Order Added b y Discern Expert. Performed By: #### [id number] #### [facility] [address] [address] Eos Absolute 0.1 0.0-0.7 E3/mcL Normal 03-24-2019 [facility] (25723) Comment: Order Comment: Order Added b y Discern Expert. Performed By: #### [id number] #### [facility] [address] [address] Eosinophils/100 WBC (Bld) 1.7 0.0-11.0 % Normal [facility] (00 000) Comment: Order Comment: Order Added b y Discern Expert. Performed By: #### [id number] #### [address] [address] Lymphocytes (Bld) [#/Vol] 1.3 1.2-3.4 E3/mcL Normal [facility] tem (45511) Comment: Order Comment: Order Added b y Discern Expert. Performed By: #### [id number] #### [address] [place] [address] Lymphocytes/100 WBC (Bld) 33.8 20.0-55.0 % Normal [facility] tem (53042) Comment: Order Comment: Order Added erma Aldana Expert. Performed By: #### [id number] #### MARCUS Kenyono [address] [place] [address] Ross Absolute 0.4 0.0-0.7 E3/mcL Normal 03-24-2019 [facility] (41772) Comment: Order Comment: Order Added erma y Discern Expert. Performed By: #### [id number] #### [facility] [address] [place] [address] Monocytes/100 WBC (Bld) 11.3 0.0-10.0 % High 2018 [facility] (00 000) Comment: Order Comment: Order Added erma Aldana Expert. Performed By: #### [id number] #### MARCUS [address] [address] Neutro Absolute 2.1 1.4-6.5 E3/mcL Normal 03-24-2019 [facility] (96767) Comment: Order Comment: Order Added erma Aldana Expert. Performed By: #### [id number] #### MARCUSShawn Kenyon[address] [address] Neutro Auto 53.1 37.0-75.0 % Normal 03-24-2019 [facility] (36936) Comment: Order Comment: Order Added erma Aldana Expert. Performed By: #### [id number] #### MARCUS [facility] [address] [place] [address] zzplt morph on 2018 Platelet morphology finding NORMAL Normal [facility] (00 000) Comment: Performed By: #### [id number] #### MARCUS [facility] [address] [place] [address] Platelets (Bld) [#/Vol] DECREASED Normal 2018 [facility] (00 000) Comment: Performed By: #### [id number] #### MARCUS [facility] [address] [id number] xr shoulder complete left on 2019-03-23 XR Shoulder Exam Date/Time: Normal 03-23-2019 [facility] Complete Left 03/23/2019 01:05 EDT Health System Reason for Exam: (00 000) Fall Report STUDY: XR Shoulder Complete Left;; 03/23/2019 1:05 am INDICATION: Fall. COMPARISON: None. ACCESSION NUMBER(S): [id number] ORDERING CLINICIAN: Narcisa Lo FINDINGS: Five views [...] TSH Qn 2.75 0.30-5.60 mcIU/mL Normal 03-23-2019 [facility] (41181) Comment: Performed By: #### [id number] #### MARCUS Luong [address] [place] [address] troponin-i on 03-23 Troponin I.cardiac 0.01 0.00-0.03 ng/mL Normal 03-23-2019 [facility] [Mass/Vol] [facility] stem (70321) Comment: Order Comment: Order Added b y Katya Expert. Performed By: #### [id number] #### MARCUS Luong [facility] [place] [address] manual diff on 2018 Anisocytosis Ql (Bld) 1+ Normal 03-23-20 19 [facility] (25764) Comment: Order Comment: Order Added b y Discern Expert. Performed By: #### [id number] #### MARCUS Luong [facility] [id number] Basophil Man 0 0-1 % Normal 03-23-2019 [facility] (65985) Comment: Order Comment: Order Added b y Katya Expert. Performed By: #### [id number] #### MARCUS Kenyono [address] [place] [address] Eosinophils/100 WBC (Bld) 0 0-5 % Normal [facility] (18426) Comment: Order Comment: Order Added b y Discern Expert. Performed By: #### [id number] #### MARCUS Kenyono [address] [place] [address] Lymphocytes/100 WBC (Bld) 54 14-48 % High [facility] (32467) Comment: Order Comment: Order Added b y Discern Expert. Performed By: #### [id number] #### MARCUS Kenyono [address] [place] [address] Monocyte Man 4 1-11 % Normal 03-23-2019 [facility] (48598) Comment: Order Comment: Order Added b y Discern Expert. Performed By: #### [id number] #### MARCUS Kenyono [address] [place] [address] RBC morphology finding SEE MORPHOLOGY Normal [facility] tem (06363) Comment: Order Comment: Order Added b y Discern Expert. Performed By: #### [id number] #### MARCUS Kenyono [address] [place] [address] Segs Man 42 37-75 % Normal 03-23-2019 [facility] (52220) Comment: Order Comment: Order Added b y Discern Expert. Performed By: #### [id number] #### MARCUSShawn Kenyono [facility] [place] [address] magnesium on 03-23 Magnesium [Mass/Vol] 2.9 1.6-2.4 mg/dL High 9 [facility] (00 000) Comment: Performed By: #### [id number] #### MARCUSShawn Kenyono [facility] [place] [address] egfr on 2019-03-23 GFR/1.73 sq M predicted >60 mL/min/{1.73_m2} Normal 03-23-2019 [facility] among non-blacks [facility] (06001) (S/P/Bld) [Vol rate/Area] Comment: Order Comment: Order Added erma Aldana Expert. Performed By: #### [id number] #### MARCUS WilcoxHemo [address] [place] [address] GFR/1.73 sq M predicted 56 mL/min/1.73 m2 Normal 0 03-23-2019 [facility] among non-blacks [facility] (83957) (S/P/Bld) [Vol rate/Area] Comment: Order Comment: Order Added erma Aldana Expert. Performed By: #### [id number] #### MARCUS JeriHemo [facility] [place] [address] cbc w/ auto diff on 2019-03-23 Erythrocyte distribution 13.6 11.5-14.5 % Normal 03-23 [facility] width (RBC) [Ratio] Health System (47861) Comment: Performed By: #### [id number] #### [facility] [place] [address] Hematocrit (Bld) [Volume 36.9 36.0-48.0 % Normal 03-23 [facility] fraction] Health Sys tem (22934) Comment: Performed By: #### [id number] #### MARCUS WilcoxHemo [facility] [place] [address] Hemoglobin (Bld) 12.2 12.0-16.0 G/DL Normal 03-23-2019 [facility] [Mass/Vol] Health Sy stem (27549) Comment: Performed By: #### [id number] #### MARCUSShawn WilcoxHemo [facility] [place] [address] MCH (RBC) [Entitic mass] 30.1 27.0-31.0 pg Normal 03-23 [facility] (00 000) Comment: Performed By: #### [id number] #### [facility]US [facility] [place] [address] MCHC (RBC) [Mass/Vol] 33.1 33.0-37.0 G/DL Normal 03-23-20 19 [facility] (00 000) Comment: Performed By: #### [id number] #### MARCUS [facility] [place] [address] MCV (RBC) [Entitic vol] 91.0 78.0-100.0 fL Normal 03-23 [facility] tem (88599) Comment: Performed By: #### [id number] #### MARCUS JeriHemo [address] [place] [address] Platelet mean volume 8.3 7.4-11.0 fL Normal 9 [facility] (Bld) [Entitic vol] System (93482) Comment: Performed By: #### [id number] #### MARCUSShawn WilcoxHemo [facility] [place] [address] Platelets (Bld) [#/Vol] 97 130-400 E3/mcL Low 2018 [facility] (00 000) Comment: Performed By: #### [id number] #### MARCUS JeriHemo [facility]5 [place] [address] RBC (Bld) [#/Vol] 4.05 3.90-5.40 E6/mcL Normal 03-23-2019 [facility] (00 000) Comment: Performed By: #### [id number] #### MARCUSShawn WilcoxHemo [facility]5 [place] [address] WBC (Bld) [#/Vol] 3.0 3.6-11.0 E3/mcL Low 03-23-2019 [facility] (30337) Comment: Performed By: #### [id number] #### MARCUS JeriHemo [address] [place] [address] bmp on 2019-03-23 Anion gap [Moles/Vol] 8 10-20 mEq/L Low 03-23-20 19 [facility] (51300) Comment: Performed By: #### [id number] #### MARCUS RemHemo [address] [place] [address] Calcium [Mass/Vol] 7.8 8.6-10.3 mg/dL Low 03-23-2019 [facility] (77629) Comment: Performed By: #### [id number] #### MARCUS RemHemo [address] [place] [address] Chloride [Moles/Vol] 111 98-107 mEq/L High 9 [facility] () Comment: Performed By: #### [id number] #### MARCUS RemHemo [address] [place] [address] CO2 [Moles/Vol] 22.0 21.0-32.0 mEq/L Normal 03-23-2019 [facility] (00 ) Comment: Performed By: #### [id number] #### MARCUS RemHemo [address] [place] [address] Creatinine [Mass/Vol] 1.1 0.5-1.1 mg/dL Normal 03-23-20 [facility] (00 000) Comment: Performed By: #### [id number] #### MARCUS RemHemo [facility] [place] [address] Glucose [Mass/Vol] 102 70-99 mg/dL High 03-23-2019 [facility] (64608) Comment: Performed By: #### [id number] #### MARCUS RemHemo [address] [place] [address] Potassium [Moles/Vol] 3.5 3.5-5.3 mEq/L Normal 03-23-20 19 [facility] (00 000) Comment: Performed By: #### [id number] #### MARCUS WilcoxHemo [facility] [place] [address] Sodium [Moles/Vol] 138 136-145 mEq/L Normal 03-23-2019 [facility] (00 000) Comment: Performed By: #### [id number] #### MARCUS RemHemo [address] [place] [address] Urea nitrogen [Mass/Vol] 9 6-23 mg/dL Normal 03-23 [facility] (00 000) Comment: Performed By: #### [id number] #### MARCUS RemHemo [address] [place] [address] Urea nitrogen/Creatinine 8.2 5.4-30.0 ratio Normal 03-23 [facility] [Mass ratio] [facility] (63820) Comment: Performed By: #### [id number] #### MARCUS RemHemo [address] [place] [address] .manual abs on 2019 -06-06 Basophil Abs Man 0.0 0.0-0.2 10x3/ Normal 03-23-2019 [facility] (14790) Comment: Order Comment: Order Added b y Discern Expert. Performed By: #### [id number] #### MARCUS WilcoxHemo [address] [place] [address] Eos Abs Man 0.0 0.0-0.5 10x3/ Normal 03-23-2019 [facility] (07094) Comment: Order Comment: Order Added b y Discern Expert. Performed By: #### [id number] #### MARCUS RemHemo [address] [place] [address] Lymph Abs Man 1.6 1.2-3.4 10x3/ Normal 03-23-2019 [facility] (37304) Comment: Order Comment: Order Added b y Discern Expert. Performed By: #### [id number] #### MARCUS JeriHemo [address] [place] [address] Ross Abs Man 0.1 0.0-0.7 10x3/ Normal 03-23-2019 [facility] (05494) Comment: Order Comment: Order Added b y Discern Expert. Performed By: #### [id number] #### MARCUS WilcoxHemo [address] [place] [address] Segs Abs Man 1.3 1.4-6.5 10x3/ Low 03-23-2019 [facility] (38249) Comment: Order Comment: Order Added b y Discern Expert. Performed By: #### [id number] #### MARCUSShawn WilcoxHemo [facility] [place] [address] xr chest ap portable on 2019-03-22 XR Chest AP Exam Date/Time: Normal 03-22-2019 [facility] Portable 03/22/2019 20:26 EDT H ealt System Reason for Exam: (00 000) Chest pain Report STUDY: XR Chest AP Portable; 03/22/2019 8:26 pm INDICATION: Chest pain. COMPARISON: 12/21/2018 ACCESSION NUMBER(S): [id number] ORDERING CLINICIAN: Xuan Garcia FINDINGS: Single portable [...] Troponin I.cardiac 0.01 0.00-0.03 ng/mL Normal 03-22-2019 [facility] [Mass/Vol] Health [facility] (17559) Comment: Performed By: #### [id number] #### MARCUS WilcoxHemo [facility] [id number] magnesium on 03-22 Magnesium [Mass/Vol] 1.6 1.6-2.4 mg/dL Normal 9 [facility] (00 000) Comment: Performed By: #### [id number] #### MARCUS RemHemo [address] [place] [address] egfr on 2019-03-22 GFR/1.73 sq M predicted >60 mL/min/{1.73_m2} Normal 03-22-2019 [facility] among non-blacks [facility] (05013) (S/P/Bld) [Vol rate/Area] Comment: Order Comment: Order Added b y Discern Expert. Performed By: #### [id number] #### MARCUS RemHemo [address] [place] [address] GFR/1.73 sq M predicted 52 mL/min/1.73 m2 Normal 0 03-22-2019 [facility] among non-blacks [facility] (58508) (S/P/Bld) [Vol rate/Area] Comment: Order Comment: Order Added b y Discern Expert. Performed By: #### [id number] #### MARCUS RemHemo [address] [place] [address] cbc w/ auto diff on 2019-03-22 Erythrocyte distribution 13.5 11.5-14.5 % Normal 03-22 [facility] width (RBC) [Ratio] Health System (78949) Comment: Performed By: #### [id number] #### MARCUSShawn WilcoxHemo [facility]5 [place] [address] Hematocrit (Bld) [Volume 37.5 36.0-48.0 % Normal 03-22 [facility] tem (25343) Comment: Performed By: #### [id number] #### MARCUSShawn WilcoxHemo [address] [place] [address] Hemoglobin (Bld) 12.8 12.0-16.0 G/DL Normal 03-22-2019 [facility] [Mass/Vol] Health [facility] stem (99745) Comment: Performed By: #### [id number] #### MARCUS [facility] [address] [place] [address] MCH (RBC) [Entitic mass] 30.9 27.0-31.0 pg Normal 03-22 [facility] (00 000) Comment: Performed By: #### [id number] #### [facility] [address] MCHC (RBC) [Mass/Vol] 34.1 33.0-37.0 G/DL Normal 03-22-20 19 [facility] (00 000) Comment: Performed By: #### [id number] #### MARCUS [facility] [address] [place] [address] MCV (RBC) [Entitic vol] 90.6 78.0-100.0 fL Normal 03-22 [facility] (59281) Comment: Performed By: #### [id number] #### MARCUS [facility] [address] [place] [address] Platelet mean volume 8.3 7.4-11.0 fL Normal 9 [facility] (Bld) [Entitic vol] System (03530) Comment: Performed By: #### [id number] #### [facility] [address] [place] [address] Platelets (Bld) [#/Vol] 113 130-400 E3/mcL Low 2018 [facility] (00 000) Comment: Performed By: #### [id number] #### MARCUS WilcoxHemo [address] [place] [address] RBC (Bld) [#/Vol] 4.14 3.90-5.40 E6/mcL Normal 03-22-2019 [facility] () Comment: Performed By: #### [id number] #### MARCUS WilcoxHemo [address] [place] [address] WBC (Bld) [#/Vol] 4.1 3.6-11.0 E3/mcL Normal 03-22-2019 [facility] () Comment: Performed By: #### [id number] #### MARCUS JeriHemo [facility] [place] [address] bmp on 2019-03-22 Anion gap [Moles/Vol] 13 10-20 mEq/L Normal 03-22-20 [facility] () Comment: Performed By: #### [id number] #### MARCUS JeriHemo [facility]5 [place] [address] Calcium [Mass/Vol] 8.4 8.6-10.3 mg/dL Low 03-22-2019 [facility] (10364) Comment: Performed By: #### [id number] #### MARCUS JeriHemo [facility]5 [place] [address] Chloride [Moles/Vol] 110 98-107 mEq/L High 9 [facility] () Comment: Performed By: #### [id number] #### MARCUS JeriHemo [address] [place] [address] CO2 [Moles/Vol] 21.0 21.0-32.0 mEq/L Normal 03-22-2019 [facility] () Comment: Performed By: #### [id number] #### MARCUS JeriHemo [address] [place] [address] Creatinine [Mass/Vol] 1.1 0.5-1.1 mg/dL Normal 03-22-20 [facility] (00 000) Comment: Performed By: #### [id number] #### MARCUS RemHemo [address] [place] [address] Glucose [Mass/Vol] 95 70-99 mg/dL Normal 03-22-2019 [facility] (23845) Comment: Performed By: #### [id number] #### MARCUS Kenyon[address] [address] Potassium [Moles/Vol] 4.0 3.5-5.3 mEq/L Normal 03-22-20 19 [facility] (00 000) Comment: Performed By: #### [id number] #### MARCUS Kenyon[address] [address] Sodium [Moles/Vol] 139 136-145 mEq/L Normal 03-22-2019 [facility] (00 000) Comment: Performed By: #### [id number] #### MARCUS Kenyon[address] [address] Urea nitrogen [Mass/Vol] 10 6-23 mg/dL Normal 03-22 [facility] (00 000) Comment: Performed By: #### [id number] #### MARCUS Kenyon[address] [address] Urea nitrogen/Creatinine 9.1 5.4-30.0 ratio Normal 03-22 [facility] [Mass ratio] [facility] (66454) Comment: Performed By: #### [id number] #### MARCUS Kenyon[address] [address] auto diff on 2019-0 6-05 Basophils (Bld) [#/Vol] 0.0 0.0-0.2 E3/mcL Normal 2018 [facility] tem (10652) Comment: Order Comment: Order Added b y Discern Expert. Performed By: #### [id number] #### MARCUS Kenyono [address] [place] [address] Basophils/100 WBC (Bld) 0.4 0.0-2.0 % Normal 2018 [facility] (00 000) Comment: Order Comment: Order Added b y Discern Expert. Performed By: #### [id number] #### MARCUS Kenyon[address] [address] Eos Absolute 0.1 0.0-0.7 E3/mcL Normal 03-22-2019 [facility] (58831) Comment: Order Comment: Order Added b y Discern Expert. Performed By: #### [id number] #### MARCUS WilcoxHemo [address] [place] [address] Eosinophils/100 WBC (Bld) 2.0 0.0-11.0 % Normal [facility] (00 000) Comment: Order Comment: Order Added b y Discern Expert. Performed By: #### [id number] #### MARCUS WilcoxHemo [address] [place] [address] Lymphocytes (Bld) [#/Vol] 1.1 1.2-3.4 E3/mcL Low [facility] (00 000) Comment: Order Comment: Order Added b y Discern Expert. Performed By: #### [id number] #### MARCUS Kenyono [address] [place] [address] Lymphocytes/100 WBC (Bld) 27.1 20.0-55.0 % Normal [facility] (70926) Comment: Order Comment: Order Added b y Discern Expert. Performed By: #### [id number] #### MARCUS WilcoxHemo [address] [place] [address] Ross Absolute 0.5 0.0-0.7 E3/mcL Normal 03-22-2019 [facility] (05591) Comment: Order Comment: Order Added b y Discern Expert. Performed By: #### [id number] #### MARCUS WilcoxHemo [address] [place] [address] Monocytes/100 WBC (Bld) 11.0 0.0-10.0 % High 2018 [facility] (00 000) Comment: Order Comment: Order Added b y Discern Expert. Performed By: #### [id number] #### MARCUS WilcoxHemo [address] [place] [address] Neutro Absolute 2.5 1.4-6.5 E3/mcL Normal 03-22-2019 [facility] (89978) Comment: Order Comment: Order Added b y Discern Expert. Performed By: #### [id number] #### MARCUS Kenyono [address] [place] [address] Neutro Auto 59.5 37.0-75.0 % Normal 03-22-2019 [facility] (41016) Comment: Order Comment: Order Added erma lizama Discern Expert. Performed By: #### [id number] #### MARCUS Kenyoncorky [address] [place] [address] ua complete on 2018 Color (U) Yellow Yellow Normal 03-19-2019 [facility] (18967) Comment: Order Comment: Order Added b y Discern Expert. Performed By: #### [id number] #### MARCUS Kenyoncorky [address] [place] [address] Glucose (U) [Mass/Vol] Negative Negative mg/dL Normal [address] [place], [place] [address]s tem (05456) Comment: Order Comment: Order Added erma lizama Discern Expert. Performed By: #### [id number] #### MARCUS Kenyoncorky [address] [place] [address] Ketones Ql (U) Negative Negative Normal 03-19-2019 [facility] (69919) Comment: Order Comment: Order Added erma lizama Discern Expert. Performed By: #### [id number] #### MARCUS Kenyoncorky [address] [place] [address] RBC (U) [#/Vol] 0-3 0-3 Normal 03-19-2019 [facility] (35584) Comment: Order Comment: Order Added b y Discern Expert. Performed By: #### [id number] #### MARCUS Kenyono [address] [place] [address] UA Blood Negative Negative Normal 03-19-2019 [facility] (61535) Comment: Order Comment: Order Added b y Discern Expert. Performed By: #### [id number] #### MARCUS Kenyono [address] [place] [address] UA Clarity SltCloudy Clear Abnormal 03-19-2019 [facility] (74789) Comment: Order Comment: Order Added b y Discern Expert. Performed By: #### [id number] #### MARCUS JeriHemo [facility] [place] [address] UA Hyal Cast 3-5 0-2 Abnormal 03-19-2019 [facility] (32538) Comment: Order Comment: Order Added erma Aldana Expert. Performed By: #### [id number] #### MARCUSShawn Luong [address] [place] [address] UA Leuk Est 1+ Negative Abnormal 03-19-2019 [facility] (48754) Comment: Order Comment: Order Added erma Aldana Expert. Performed By: #### [id number] #### MARCUSShawn Luong [address] [place] [address] UA Mucous Trace Trace Abnormal 03-19-2019 [facility] (60543) Comment: Order Comment: Order Added erma Aldana Expert. Performed By: #### [id number] #### MARCUS Luong [address] [place] [address] UA Nitrite Negative Negative Normal 03-19-2019 [facility] (00572) Comment: Order Comment: Order Added erma Aldana Expert. Performed By: #### [id number] #### MARCUSShawn Luong [address] [place] [address] UA pH 5.0 4.6-8.0 Normal 03-19-2019 [facility] (87653) Comment: Order Comment: Order Added erma Aldana Expert. Performed By: #### [id number] #### MARCUSShawn Luong [address] [place] [address] UA Protein Negative Negative Normal 03-19-2019 [facility] (80765) Comment: Order Comment: Order Added erma Aldana Expert. Performed By: #### [id number] #### MARCUSShawn Luong [address] [place] [address] UA Spec Grav 1.010 1.003-1.030 Normal 03-19-2019 [facility] (23825) Comment: Order Comment: Order Added erma Aldana Expert. Performed By: #### [id number] #### MARCUSShawn Luong [address] [place], [place] [id number] UA Squam Epithelial 10-20 0-5 Abnormal 03-19-2019 [facility] (00066) Comment: Order Comment: Order Added erma Aldana Expert. Performed By: #### [id number] #### MARCUS Luong [address] [place] [address] UA Urobilinogen Negative Normal 03-19-2019 [facility] (99602) Comment: Order Comment: Order Added erma Aldana [...] laboratory within 24 hours. Performed By: #### [id number] #### MARCUS JeriHemo [address] [place] [address] UA WBC 0-5 0-5 Normal 03-19-2019 [facility] (13809) Comment: Order Comment: Order Added erma Aldana Expert. Performed By: #### [id number] #### MARCUS JeriKarlo [facility] [place] [address] Urobilinogen Qn (U) Negative Negative Normal 03-19-2019 [facility] (00 000) Comment: Order Comment: Order Added erma Aldana Expert. Performed By: #### [id number] #### MARCUS JeriHemo [facility] [place] [address] ionized calcium poc order on 2019-03-18 Ionized Calcium POC Order Collected Normal [facility] (00 000) Comment: Performed By: #### [id number] #### MARCUS JeriHemo [facility] [place] [address] ionized calcium lvl on 2019-03-18 Ionized Ca. 4.5 4.5-5.6 mg/dL Normal 03-18-2019 [facility] (07957) Comment: Performed By: #### [id number] #### MARCUS JeriHemo [facility] [place] [address] egfr on 2019-03-18 GFR/1.73 sq M predicted 56 mL/min/1.73 m2 Normal 0 03-18-2019 [facility] [facility] (23326) (S/P/Bld) [Vol rate/Area] Comment: Order Comment: Order Added erma Aldana Expert. Performed By: #### [id number] #### MARCUS RemHemo [address] [place] [address] GFR/1.73 sq M predicted 46 mL/min/1.73 m2 Normal 0 03-18-2019 [facility] among non-blacks [facility] (45494) (S/P/Bld) [Vol rate/Area] Comment: Order Comment: Order Added b y Discern Expert. Performed By: #### [id number] #### MARCUS RemHemo [address] [place] [address] ct head or brain w/o contrast on 2019-03-18 CT Head or Brain Exam Date/Time: Normal 019 [facility] w/o Contrast 03/18/2019 21:34 EDT Health System Reason for Exam: (00 000) Altered mental status Report STUDY: CT Head or Brain w/o Contrast; 03/18/2019 9:34 pm INDICATION: Altered mental status. COMPARISON: 03/16/2019 ACCESSION NUMBER(S): [id number] ORDERING CLINICIAN: Ac Gao TECHNIQUE: Noncontrast CT [...] Erythrocyte distribution 14.1 11.5-14.5 % Normal 03-18 [facility] width (RBC) [Ratio] [facility] (25848) Comment: Performed By: #### [id number] #### MARCUS Kenyono [facility] [place] [address] Hematocrit (Bld) [Volume 40.4 36.0-48.0 % Normal 03-18 [facility] tem (42716) Comment: Performed By: #### [id number] #### MARCUS WilcoxHemo [facility] [place] [address] Hemoglobin (Bld) 13.4 12.0-16.0 G/DL Normal 03-18-2019 [facility] [Mass/Vol] Health Sy stem (47374) Comment: Performed By: #### [id number] #### MARCUS WilcoxHemo [facility] [place] [address] MCH (RBC) [Entitic mass] 30.2 27.0-31.0 pg Normal 03-18 [facility] (00 000) Comment: Performed By: #### [id number] #### MARCUSShawn WilcoxHemo [address] [place] [address] MCHC (RBC) [Mass/Vol] 33.1 33.0-37.0 G/DL Normal 03-18-20 19 [facility] (00 000) Comment: Performed By: #### [id number] #### MARCUSShawn WilcoxHemo [address] [place] [address] MCV (RBC) [Entitic vol] 91.3 78.0-100.0 fL Normal 03-18 [facility] (15013) Comment: Performed By: #### [id number] #### MARCUSShawn WilcoxHemo [address] [place] [address] Platelet mean volume 8.0 7.4-11.0 fL Normal 9 [facility] (Bld) [Entitic vol] System (51419) Comment: Performed By: #### [id number] #### MARCUSShawn WilcoxHemo [facility] [place] [address] Platelets (Bld) [#/Vol] 123 130-400 E3/mcL Low 2018 [facility] (00 000) Comment: Performed By: #### [id number] #### [facility]US [facility] [place] [address] RBC (Bld) [#/Vol] 4.43 3.90-5.40 E6/mcL Normal 03-18-2019 [facility] () Comment: Performed By: #### [id number] #### MARCUS JeriHemo [address] [place] [address] WBC (Bld) [#/Vol] 4.3 3.6-11.0 E3/mcL Normal 03-18-2019 [facility] () Comment: Performed By: #### [id number] #### MARCUS RemHemo [address] [place] [address] bmp on 2019-03-18 Anion gap [Moles/Vol] 11 10-20 mEq/L Normal 03-18-20 [facility] () Comment: Performed By: #### [id number] #### MARCUS JeriHemo [facility] [place] [address] Calcium [Mass/Vol] 8.8 8.6-10.3 mg/dL Normal 03-18-2019 [facility] () Comment: Performed By: #### [id number] #### MARCUS RemHemo [address] [place] [address] Chloride [Moles/Vol] 110 98-107 mEq/L High [facility] () Comment: Performed By: #### [id number] #### MARCUS JeriHemo [address] [place] [address] CO2 [Moles/Vol] 20.0 21.0-32.0 mEq/L Low 03-18-2019 [facility] (40108) Comment: Performed By: #### [id number] #### MARCUS RemHemo [address] [place] [address] Creatinine [Mass/Vol] 1.2 0.5-1.1 mg/dL High 03-18-20 [facility] ( 000) Comment: Performed By: #### [id number] #### MARCUS RemHemo [address] [place] [address] Glucose [Mass/Vol] 90 70-99 mg/dL Normal 03-18-2019 [facility] (38703) Comment: Performed By: #### [id number] #### MARCUS Kenyono [facility] [place] [address] Potassium [Moles/Vol] 4.0 3.5-5.3 mEq/L Normal 03-18-20 19 [facility] (00 000) Comment: Performed By: #### [id number] #### MARCUSShawn Kenyono [facility] [place] [address] Sodium [Moles/Vol] 137 136-145 mEq/L Normal 03-18-2019 [facility] (00 000) Comment: Performed By: #### [id number] #### MARCUSShawn Kenyono [address] [place] [address] Urea nitrogen [Mass/Vol] 9 6-23 mg/dL Normal 03-18 [facility] (00 000) Comment: Performed By: #### [id number] #### MARCUSShawn Wilcox[address] [address] Urea nitrogen/Creatinine 7.5 5.4-30.0 ratio Normal 03-18 [facility] [Mass ratio] [facility] (96285) Comment: Performed By: #### [id number] #### MARCUSShawn Kenyon[address] [address] auto diff on 6- Basophils (Bld) [#/Vol] 0.0 0.0-0.2 E3/mcL Normal 2018 [facility] Sys tem (48090) Comment: Order Comment: Order Added b y Discern Expert. Performed By: #### [id number] #### MARCUSShawn Kenyono [address] [place] [address] Basophils/100 WBC (Bld) 0.5 0.0-2.0 % Normal 2018 [facility] (00 000) Comment: Order Comment: Order Added b y Discern Expert. Performed By: #### [id number] #### MARCUS Kenyono [facility] [place] [address] Eos Absolute 0.1 0.0-0.7 E3/mcL Normal 03-18-2019 [facility] (31287) Comment: Order Comment: Order Added b y Discern Expert. Performed By: #### [id number] #### MARCUS WilcoxHemo [address] [place] [address] Eosinophils/100 WBC (Bld) 2.2 0.0-11.0 % Normal [facility] (00 000) Comment: Order Comment: Order Added b y Discern Expert. Performed By: #### [id number] #### MARCUS WilcoxHemo [facility] [place] [address] Lymphocytes (Bld) [#/Vol] 1.3 1.2-3.4 E3/mcL Normal [facility] tem (76440) Comment: Order Comment: Order Added b y Discern Expert. Performed By: #### [id number] #### MARCUS WilcoxHemo [address] [place] [address] Lymphocytes/100 WBC (Bld) 30.1 20.0-55.0 % Normal [facility] tem (54103) Comment: Order Comment: Order Added b y Discern Expert. Performed By: #### [id number] #### MARCUS RemHemo [address] [place] [address] Ross Absolute 0.4 0.0-0.7 E3/mcL Normal 03-18-2019 [facility] (68237) Comment: Order Comment: Order Added b y Discern Expert. Performed By: #### [id number] #### MARCUS WilcoxHemo [address] [place] [address] Monocytes/100 WBC (Bld) 9.9 0.0-10.0 % Normal 2018 [facility] (00 000) Comment: Order Comment: Order Added b y Discern Expert. Performed By: #### [id number] #### MARCUS RemHemo [address] [place] [address] Neutro Absolute 2.5 1.4-6.5 E3/mcL Normal 03-18-2019 [facility] (80600) Comment: Order Comment: Order Added b y Discern Expert. Performed By: #### [id number] #### [facility] RemHemo [address] [place] [address] Neutro Auto 57.3 37.0-75.0 % Normal 03-18-2019 [facility] (51048) Comment: Order Comment: Order Added erma Aldana Expert. Performed By: #### [id number] #### MARCUS WilcoxKnack.ito [address] [place], [place] [address] lactic acid on 2018 Lactate [Moles/Vol] 1.2 0.4-2.0 mmol/L Normal 03-16-2019 [facility] (00 000) Comment: Performed By: #### [id number] #### MARCUS [place] [id number] egfr on 2019-03-16 GFR/1.73 sq M predicted 58 mL/min/1.73 m2 Normal 0 03-16-2019 [facility] non-blacks [facility] (39401) (S/P/Bld) [Vol rate/Area] Comment: Order Comment: Order Added erma y Katya Expert. Performed By: #### [id number] #### [place] [address] GFR/1.73 sq M predicted 48 mL/min/1.73 m2 Normal 0 03-16-2019 [facility] (79227) (S/P/Bld) [Vol rate/Area] Comment: Order Comment: Order Added erma Aldana Expert. Performed By: #### [id number] #### [place] [address] [place] spine cervical w/o contrast on 2019-03-16 CT Spine Exam Date/Time: Normal 03-16-2019 [facility] Cervical w/o 03/16/2019 00:08 EDT [facility] Contrast Reason for Exam: Sys tem (08648) Trauma Report STUDY: CT Spine Cervical w/o Contrast; 03/16/2019 12:46 am INDICATION: Trauma. COMPARISON: None. ACCESSION NUMBER(S): [id number] ORDERING CLINICIAN: Caren Lozano TECHNIQUE: Axial noncontrast [...] CT Head or Brain Exam Date/Time: Normal [address] [place] [address] w/o Contrast 03/16/2019 00:08 [facility] System Reason for Exam: (00 000) Injury Report STUDY: CT Head or Brain w/o Contrast; 03/16/2019 12:46 am INDICATION: Injury. COMPARISON: 12/01/2018 ACCESSION NUMBER(S): [id number] ORDERING CLINICIAN: Caren Lozano TECHNIQUE: Noncontrast CT [...] Albumin [Mass/Vol] 4.2 3.4-5.0 gm/dL Normal 03-16-2019 [facility] (00 000) Comment: Performed By: #### [id number] #### MARCUS RemHemo [address] [place] [address] Albumin/Globulin [Mass 1.7 1.1-1.9 ratio Normal 019 [facility] (17831) Comment: Performed By: #### [id number] #### MARCUS RemHemo [address] [place] [address] Alk Phos 104 33-110 Int._Unit/L Normal 03-16-2019 [facility] (81204) Comment: Performed By: #### [id number] #### MARCUS RemHemo [address] [place] [address] ALT [Catalytic 31 7-45 Int._Unit/L Normal 03-16-2019 [facility] (83641) Comment: Performed By: #### [id number] #### MARCUS RemHemo [address] [place] [address] Anion gap [Moles/Vol] 12 10-20 mEq/L Normal 03-16-20 19 [facility] (00 000) Comment: Performed By: #### [id number] #### MARCUS RemHemo [address] [place] [address] AST [Catalytic 37 9-39 Int._Unit/L Normal 03-16-2019 [facility] (23096) Comment: Performed By: #### [id number] #### MARCUS RemHemo [address] [place] [address] Bili Total 0.79 0.00-1.20 mg/dL Normal 03-16-2019 [facility] (44490) Comment: Performed By: #### [id number] #### MARCUS RemHemo [address] [place] [address] Calcium [Mass/Vol] 8.8 8.6-10.3 mg/dL Normal 03-16-2019 [facility] (00 000) Comment: Performed By: #### [id number] #### MARCUS RemHemo [address] [place] [address] Chloride [Moles/Vol] 110 98-107 mEq/L High 9 [facility] (00 000) Comment: Performed By: #### [id number] #### MARCUS WilcoxHemo [address] [place] [address] CO2 [Moles/Vol] 20.0 21.0-32.0 mEq/L Low 03-16-2019 [facility] (33318) Comment: Performed By: #### [id number] #### MARCUS WilcoxHemo [address] [place] [address] Creatinine [Mass/Vol] 1.2 0.5-1.1 mg/dL High 03-16-20 [facility] ( 000) Comment: Performed By: #### [id number] #### MARCUS RemHemo [facility] [place] [address] Globulin (S) [Mass/Vol] 3.0 2.0-4.0 G/DL Normal 2018 [facility] () Comment: Performed By: #### [id number] #### MARCUS WilcoxHemo [facility] [place] [address] Glucose [Mass/Vol] 114 70-99 mg/dL High 03-16-2019 [facility] (79614) Comment: Performed By: #### [id number] #### MARCUS WilcoxHemo [facility] [place] [address] Potassium [Moles/Vol] 3.4 3.5-5.3 mEq/L Low 03-16-20 [facility] ( 000) Comment: Performed By: #### [id number] #### MARCUS WilcoxHemo [facility] [place] [address] Protein [Mass/Vol] 6.7 6.4-8.2 gm/dL Normal 03-16-2019 [facility] ( 000) Comment: Performed By: #### [id number] #### MARCUS RemHemo [address] [place] [address] Sodium [Moles/Vol] 139 136-145 mEq/L Normal 03-16-2019 [facility] ( 000) Comment: Performed By: #### [id number] #### MARCUS RemHemo [facility] [place] [address] Urea nitrogen [Mass/Vol] 9 6-23 mg/dL Normal 03-16 [facility] (00 000) Comment: Performed By: #### [id number] #### MARCUS WilcoxHemo [facility] [place] [address] Urea nitrogen/Creatinine 7.5 5.4-30.0 ratio Normal 03-16 [facility] [Mass ratio] Health System (58600) Comment: Performed By: #### [id number] #### MARCUS WilcoxHemo [facility] [place] [address] cbc w/ auto diff on 2019-03-16 Erythrocyte distribution 13.9 11.5-14.5 % Normal 03-16 [facility] width (RBC) [Ratio] Health System (38562) Comment: Performed By: #### [id number] #### MARCUS JeriHemo [address] [place] [address] Hematocrit (Bld) [Volume 40.6 36.0-48.0 % Normal 03-16 [facility]] Health Sys tem (70968) Comment: Performed By: #### [id number] #### MARCUS JeriHemo [address] [place] [address] Hemoglobin (Bld) 13.5 12.0-16.0 G/DL Normal 03-16-2019 [facility] [Mass/Vol] Health Sy stem (63079) Comment: Performed By: #### [id number] #### MARCUS WilcoxHemo [facility] [place] [address] MCH (RBC) [Entitic mass] 30.4 27.0-31.0 pg Normal 03-16 [facility] (00 000) Comment: Performed By: #### [id number] #### MARCUS RemHemo [facility] [place] [address] MCHC (RBC) [Mass/Vol] 33.3 33.0-37.0 G/DL Normal 03-16-20 19 [facility] (00 000) Comment: Performed By: #### [id number] #### MARCUShSawn WilcoxHemo [facility] [place] [address] MCV (RBC) [Entitic vol] 91.4 78.0-100.0 fL Normal 03-16 [facility] Sys tem (53931) Comment: Performed By: #### [id number] #### MARCUS Kenyono [facility] [place] [address] Platelet mean volume 8.3 7.4-11.0 fL Normal 9 [facility] (Bld) [Entitic vol] System (18233) Comment: Performed By: #### [id number] #### MARCUS Kenyono [address] [place] [address] Platelets (Bld) [#/Vol] 118 130-400 E3/mcL Low 2018 [facility] ( 000) Comment: Performed By: #### [id number] #### MARCUS Kenyono [address] [place] [address] RBC (Bld) [#/Vol] 4.45 3.90-5.40 E6/mcL Normal 03-16-2019 [facility] () Comment: Performed By: #### [id number] #### MARCUSShawn Wilcox[address] [address] WBC (Bld) [#/Vol] 4.4 3.6-11.0 E3/mcL Normal 03-16-2019 [facility] () Comment: Performed By: #### [id number] #### MARCUS Kenyon[address] [address] auto diff on 2019-0 5-30 Basophils (Bld) [#/Vol] 0.0 0.0-0.2 E3/mcL Normal 2018 [facility] Sys tem (77576) Comment: Order Comment: Order Added b y Discern Expert. Performed By: #### [id number] #### MARCUS WilcoxHemo [facility] [place] [address] Basophils/100 WBC (Bld) 0.9 0.0-2.0 % Normal 2018 [facility] (00 000) Comment: Order Comment: Order Added b y Discern Expert. Performed By: #### [id number] #### MARCUS WilcoxHemo [address] [place] [address] Eos Absolute 0.1 0.0-0.7 E3/mcL Normal 03-16-2019 [facility] (31492) Comment: Order Comment: Order Added b y Discern Expert. Performed By: #### [id number] #### MARCUS WilcoxHemo [address] [place] [address] Eosinophils/100 WBC (Bld) 2.6 0.0-11.0 % Normal 02-17 [facility] (00 000) Comment: Order Comment: Order Added b y Discern Expert. Performed By: #### [id number] #### MARCUS RemHemo [address] [place] [address] Lymphocytes (Bld) [#/Vol] 1.0 1.2-3.4 E3/mcL Low 02-17 [facility] (00 000) Comment: Order Comment: Order Added b y Discern Expert. Performed By: #### [id number] #### MARCUS WilcoxHemo [address] [place] [address] Lymphocytes/100 WBC (Bld) 23.0 20.0-55.0 % Normal 02-17 [facility] Sys tem (85698) Comment: Order Comment: Order Added b y Discern Expert. Performed By: #### [id number] #### MARCUS WilcoxHemo [address] [place] [address] Ross Absolute 0.3 0.0-0.7 E3/mcL Normal 03-16-2019 [facility] (74100) Comment: Order Comment: Order Added b y Discern Expert. Performed By: #### [id number] #### MARCUS WilcoxHemo [address] [place] [address] Monocytes/100 WBC (Bld) 6.8 0.0-10.0 % Normal 2018 [facility] (00 000) Comment: Order Comment: Order Added b y Discern Expert. Performed By: #### [id number] #### MARCUS WilcoxHemo [address] [place] [address] Neutro Absolute 2.9 1.4-6.5 E3/mcL Normal 03-16-2019 [facility] (20951) Comment: Order Comment: Order Added b y Discern Expert. Performed By: #### [id number] #### MARCUS RemHemo [address] [place] [address] Neutro Auto 66.7 37.0-75.0 % Normal 03-16-2019 [facility] (16109) Comment: Order Comment: Order Added erma Aldana Expert. Performed By: #### [id number] #### MARCUS RemHemo [address] [place] [address] No panel information on 2019-03-16 Aleksey Longoria MD 03-16-2019 [facility] 03/16/2019 4:19 PM ( 14651) [facility] EEG Report Reason for EEG: Seizures. [...] 65 - 99 mg/dL 03-16-2019 [facility] (81548) Interpretation and Normal 03-16-2019 [facility] review of (31088) laboratory results Interpretation and Abnormal 03-16-2019 [facility] review of (39737) laboratory results Valproate mass conc <3 OTH - ug/mL Low 03-16-2019 [facility] OTH (61059) Cobalamin (Vitamin 354 193 - pg/mL 03-16-2019 [facility] B12) mass conc 986 (4321 5) Folate mass conc 6.9 3.1 - ng/mL 03-16-2019 [facility] 17.5 (89958) Comment: Deficient <2.2 Borderline 2.2 - 3.0 Excessive >17.5 Interpretation and Normal 03-16-2019 [facility] review of laboratory (64398) results Interpretation and Normal 03-16-2019 [facility] review of laboratory (75761) results Thyrotropin Qn 2.12 OTH - OTH m[IU]/L 03-16-2019 [facility] (91194) This order has 03-16-2019 [facility] been (34873) auto-finalized and does not contain a result. This order has 03-16-2019 [facility] (89857) auto-finalized and does not contain a result. ua complete on 2018 Color (U) Yellow Normal 03-11-2019 [facility] (09307) Comment: Performed By: #### [id number] #### MARCUS RemHemo [address] [place] [address] Glucose (U) [Mass/Vol] Negative Negative mg/dL Normal 019 [facility] Sys tem (92876) Comment: Performed By: #### [id number] #### MRACUS RemHemo [address] [place] [address] Ketones Ql (U) Negative Negative Normal 03-11-2019 [facility] (53843) Comment: Performed By: #### [id number] #### MARCUS RemHemo [address] [place] [address] RBC (U) [#/Vol] 0-3 0-3 Normal 03-11-2019 [facility] (31290) Comment: Performed By: #### [id number] #### MARCSU RemHemo [address] [place] [address] UA Blood Negative Negative Normal 03-11-2019 [facility] (74606) Comment: Performed By: #### [id number] #### MARCUS RemHemo [address] [place] [address] UA Bacteria Trace None Abnormal 03-11-2019 [facility] (59949) Comment: Performed By: #### [id number] #### MARCUS RemHemo [facility] [place] [address] UA Clarity Clear Clear Normal 03-11-2019 [facility] (79921) Comment: Performed By: #### [id number] #### MARCUS RemHemo [address] [place] [address] UA Leuk Est Negative Negative Normal 03-11-2019 [facility] (96051) Comment: Performed By: #### [id number] #### MARCUS RemHemo [address] [place] [address] UA Mucous Trace Trace Abnormal 03-11-2019 [facility] (63752) Comment: Performed By: #### [id number] #### MARCUS WilcoxHemo [address] [place] [address] UA Nitrite Negative Negative Normal 03-11-2019 [facility] (53342) Comment: Performed By: #### [id number] #### MARCUS Kenyono [facility] [place] [address] UA pH 5.0 4.6-8.0 Normal 03-11-2019 [facility] (46272) Comment: Performed By: #### [id number] #### MARCUS WilcoxHemo [facility] [place] [address] UA Protein Negative Negative Normal 03-11-2019 [facility] (19878) Comment: Performed By: #### [id number] #### MARCUS WilcoxHemo [facility] [place] [address] UA Spec Grav 1.012 1.003-1.030 Normal 03-11-2019 [facility] (75512) Comment: Performed By: #### [id number] #### MARCUS WilcoxHemo [address] [place] [address] UA Squam Epithelial 10-20 0-5 Abnormal 03-11-2019 [facility] (40739) Comment: Performed By: #### [id number] #### MARCUS WilcoxHemo [address] [place] [address] UA Urobilinogen Negative Normal 03-11-2019 [facility] (15774) Comment: Result Comment: Due to a man ufacturing issue, low positive urobilinogen results may be fasely positi ve. Correlate with urine bilirubin and additional clinical/laborato ry findings to assess the risk of hemolytic anemia or liver disease. If clinically indicated, repeat testing with an alternate method is availabl e by contacting the laboratory within 24 hours. Performed By: #### [id number] #### MARCUS WilcoxHemo [facility] [place] [address] UA WBC 0-5 0-5 Normal 03-11-2019 [facility] (17702) Comment: Performed By: #### [id number] #### MARCUS WilcoxHemo [facility] [place] [address] Urobilinogen Qn (U) Negative Negative Normal 03-11-2019 [facility] (00 000) Comment: Performed By: #### [id number] #### MARCUS Kenyono [facility] [place] [address] troponin-i on 03-11 Troponin I.cardiac 0.01 0.00-0.03 ng/mL Normal 03-11-2019 [facility] [Mass/Vol] Health Sy stem (84550) Comment: Performed By: #### [id number] #### MARCUS Kenyono [facility] [place] [address] egfr on 2019-03-11 GFR/1.73 sq M predicted 58 mL/min/1.73 m2 Normal 0 03-11-2019 [facility] among non-blacks [facility] (61485) (S/P/Bld) [Vol rate/Area] Comment: Order Comment: Order Added b y Katya Expert. Performed By: #### [id number] #### MARCUS [place] [id number] GFR/1.73 sq M predicted 48 mL/min/1.73 m2 Normal 0 03-11-2019 [facility] among non-blacks [facility] (89294) (S/P/Bld) [Vol rate/Area] Comment: Order Comment: Order Added b y Katya Expert. Performed By: #### [id number] #### MARCUS Kenyono [facility] [place] [address] cbc w/ auto diff on 2019-03-11 Erythrocyte distribution 13.9 11.5-14.5 % Normal 03-11 [facility] width (RBC) [Ratio] Health System (41916) Comment: Performed By: #### [id number] #### MARCUS WilcoxHemo [facility] [place] [address] Hematocrit (Bld) [Volume 37.4 36.0-48.0 % Normal 03-11 [facility] fraction] Health Sys tem (39347) Comment: Performed By: #### [id number] #### MARCUS WilcoxHemo [facility] [place] [address] Hemoglobin (Bld) 12.4 12.0-16.0 G/DL Normal 03-11-2019 [facility] [Mass/Vol] Health Sy stem (11261) Comment: Performed By: #### [id number] #### MARCUS WilcoxHemo [facility] [place] [place] [address] MCH (RBC) [Entitic mass] 30.2 27.0-31.0 pg Normal 03-11 [facility] () Comment: Performed By: #### [id number] #### MARCUS WilcoxKarlo [address] [place] [address] MCHC (RBC) [Mass/Vol] 33.1 33.0-37.0 G/DL Normal 03-11-20 19 [facility] () Comment: Performed By: #### [id number] #### MARCUS JeriHemo [facility] [place] [address] MCV (RBC) [Entitic vol] 91.2 78.0-100.0 fL Normal 03-11 [facility] Sys tem (67475) Comment: Performed By: #### [id number] #### MARCUS JeriHemo [address] [place] [address] 65456 Platelet mean volume 8.1 7.4-11.0 fL Normal 9 [facility] (Bld) [Entitic vol] System (11215) Comment: Performed By: #### [id number] #### MARCUS WilcoxHemo [facility] [place] [address] Platelets (Bld) [#/Vol] 120 130-400 E3/mcL Low 2018 [facility] () Comment: Performed By: #### [id number] #### MARCUS JeriHemo [address] [place] [address] 30654 RBC (Bld) [#/Vol] 4.11 3.90-5.40 E6/mcL Normal 03-11-2019 [facility] () Comment: Performed By: #### [id number] #### MARCUSShawn WilcoxHemo [facility] [place] [address] WBC (Bld) [#/Vol] 3.6 3.6-11.0 E3/mcL Normal 03-11-2019 [facility] () Comment: Performed By: #### [id number] #### MARCUS RemHemo [address] [place] [address] bmp on 2019-03-11 Anion gap [Moles/Vol] 11 10-20 mEq/L Normal 03-11-20 [facility] () Comment: Performed By: #### [id number] #### MARCUS RemHemo [address] [place] [address] Calcium [Mass/Vol] 8.4 8.6-10.3 mg/dL Low 03-11-2019 [facility] (75324) Comment: Performed By: #### [id number] #### MARCUS RemHemo [address] [place] [address] Chloride [Moles/Vol] 110 98-107 mEq/L High [facility] () Comment: Performed By: #### [id number] #### MARCUS RemHemo [address] [place] [address] CO2 [Moles/Vol] 19.0 21.0-32.0 mEq/L Low 03-11-2019 [facility] (65972) Comment: Performed By: #### [id number] #### MARCUS RemHemo [address] [place] [address] Creatinine [Mass/Vol] 1.2 0.5-1.1 mg/dL High 03-11-20 [facility] ( 000) Comment: Performed By: #### [id number] #### MARCUS RemHemo [address] [place] [address] Glucose [Mass/Vol] 88 70-99 mg/dL Normal 03-11-2019 [facility] (85114) Comment: Performed By: #### [id number] #### MARCUS RemHemo [address] [place] [address] Potassium [Moles/Vol] 3.8 3.5-5.3 mEq/L Normal 03-11-20 [facility] ( 000) Comment: Performed By: #### [id number] #### MARCUS RemHemo [address] [place] [address] Sodium [Moles/Vol] 136 136-145 mEq/L Normal 03-11-2019 [facility] () Comment: Performed By: #### [id number] #### MARCUS WilcoxHemo [address] [place] [address]77 Urea nitrogen [Mass/Vol] 12 6-23 mg/dL Normal 03-11 [facility] () Comment: Performed By: #### [id number] #### MARCUSShawn Wilcox[address] [address] Urea nitrogen/Creatinine 10.0 5.4-30.0 ratio Normal 03-11 [facility] [Mass ratio] [facility] (78237) Comment: Performed By: #### [id number] #### [address] [address] auto diff on 03-11 Basophils (Bld) [#/Vol] 0.0 0.0-0.2 E3/mcL Normal 2018 [facility] () Comment: Order Comment: Order Added b y Discern Expert. Performed By: #### [id number] #### MARCUS WilcoxHemo [address] [place] [address] Basophils/100 WBC (Bld) 0.3 0.0-2.0 % Normal 2018 [facility] () Comment: Order Comment: Order Added b y Discern Expert. Performed By: #### [id number] #### MARCUS WilcoxHemo [address] [place] [address] Eos Absolute 0.1 0.0-0.7 E3/mcL Normal 03-11-2019 [facility] () Comment: Order Comment: Order Added b y Discern Expert. Performed By: #### [id number] #### [facility] [address] [place] [address] Eosinophils/100 WBC (Bld) 3.7 0.0-11.0 % Normal 02-16 [facility] () Comment: Order Comment: Order Added b y Discern Expert. Performed By: #### [id number] #### [facility] [address] [place] [address] Lymphocytes (Bld) [#/Vol] 1.0 1.2-3.4 E3/mcL Low 02-16 [facility] (00 000) Comment: Order Comment: Order Added erma lizama Discern Expert. Performed By: #### [id number] #### MARCUS WilcoxHemo [address] [place] [address] Lymphocytes/100 WBC (Bld) 28.2 20.0-55.0 % Normal 02-16 [facility] (88740) Comment: Order Comment: Order Added b y Discern Expert. Performed By: #### [id number] #### MARCUS JeriHemo [address] [place] [address]326 Ross Absolute 0.3 0.0-0.7 E3/mcL Normal 03-11-2019 [facility] (49963) Comment: Order Comment: Order Added b y Discern Expert. Performed By: #### [id number] #### MARCUSShawn WilcoxHemo [address] [place] [address] Monocytes/100 WBC (Bld) 8.9 0.0-10.0 % Normal 2018 [facility] (00 000) Comment: Order Comment: Order Added b y Discern Expert. Performed By: #### [id number] #### MARCUS WilcoxHemo [facility] [place] [address] Neutro Absolute 2.1 1.4-6.5 E3/mcL Normal 03-11-2019 [facility] (81408) Comment: Order Comment: Order Added b y Discern Expert. Performed By: #### [id number] #### MARCUSShawn WilcoxHemo [address] [place] [address] Neutro Auto 58.9 37.0-75.0 % Normal 03-11-2019 [facility] (61240) Comment: Order Comment: Order Added b y Discern Expert. Performed By: #### [id number] #### MARCUSShawn WilcoxHemo [address] [place] [address] No panel information on 2019-03-08 Ammonia mass conc 30 OTH - OTH ug/dL 03-08-2019 [facility] (P) (78889) Interpretation and Normal 03-08-2019 [facility] review of laboratory (32155) results Interpretation and Normal 03-08-2019 [facility] review of laboratory (64392) results Thyrotropin Qn 2.54 OTH - OTH m[IU]/L 03-08-2019 [facility] (40021) Albumin mass conc 3.6 3.2 - 5.2 g/dL 03-08-2019 [facility] (87609) ALP enzyme act/vol 99 40 - 150 U/L 03-08-2019 [facility] (65750) ALT enzyme act/vol 31 14 - 65 U/L 03-08-2019 [facility] (50593) Anion gap molar conc 12 10 - 20 mmol/L 9 [facility] (58872) AST enzyme act/vol 29 0 - 45 U/L 03-08-2019 [facility] (45013) Bilirubin mass conc 0.6 0 - 1.3 mg/dL 03-08-2019 [facility] (71536) Calcium mass conc 8.4 8.4 - mg/dL 03-08-2019 [facility] 10.2 (19910) Chloride molar conc 114 98 - 108 mmol/L High 03-08-2019 [facility] (18633) Creatinine mass conc 1.31 0.4 - 1.1 mg/dL High 9 [facility] (28442) GFR/1.73 sq M The eGFR should 03-08-2019 [facility] predicted among be used for (4 9313) non-blacks MDRD vol monitoring renal rate/area (S/P/Bld) function only and not for medication dosing. GFR/1.73 sq 49 >=60 Low [facility]1. (13709) vol rate/area 73 m2 (S/P/Bld) Glucose mass conc 94 65 - 99 mg/dL 03-08-2019 [facility] (73219) HCO3 molar conc 20 21 - 32 mmol/L Low 03-08-2019 [facility] (17327) Interpretation and Abnormal 03-08-2019 [facility] review of laboratory (42933) results Potassium molar conc 4.1 3.5 - 5.1 mmol/L 9 [facility] (93366) Protein mass conc 7.2 6 - 8 g/dL 03-08-2019 [facility] (07590) Sodium molar conc 142 135 - 145 mmol/L 03-08-2019 [facility] (11029) Urea nitrogen mass 16 8 - 25 mg/dL 03-08-2019 [facility] conc (52473) Urea 12.2 OTH - OTH mg/mg [facility]82188[facility] mass ratio Valproate mass conc 4 OTH - OTH ug/mL Low 03-08-2019 [facility] (41611) egfr on 2019-02-24 GFR/1.73 sq M predicted 43 mL/min/1.73 m2 Normal 0 02-24-2019 [facility] among non-blacks [facility] (94756) (S/P/Bld) [Vol rate/Area] Comment: Order Comment: Order Added erma Aldana Expert. Performed By: #### [id number] #### MARCUS Kenyono [facility] [place] [address] GFR/1.73 sq M predicted 52 mL/min/1.73 m2 Normal 0 02-24-2019 [facility] among non-blacks [facility] (15031) (S/P/Bld) [Vol rate/Area] Comment: Order Comment: Order Added erma Aldana Expert. Performed By: #### [id number] #### MARCUS WilcoxHemo [address] [place] [address] bmp on 2019-02-24 Anion gap [Moles/Vol] 12 10-20 mEq/L Normal 02-25-20 19 [facility] (00 000) Comment: Performed By: #### [id number] #### MARCUS WilcoxHemo [facility] [place] [address] Calcium [Mass/Vol] 8.9 8.6-10.3 mg/dL Normal 02-24-2019 [facility] (00 000) Comment: Performed By: #### [id number] #### MARCUS WilcoxHemo [address] [place] [address] Chloride [Moles/Vol] 110 98-107 mEq/L High 9 [facility] (00 000) Comment: Performed By: #### [id number] #### MARCUS RemHemo [address] [place] [address] CO2 [Moles/Vol] 21.0 21.0-32.0 mEq/L Normal 02-24-2019 [facility] (00 000) Comment: Performed By: #### [id number] #### MARCUSShawn WilcoxHemo [facility] [place] [address] Creatinine [Mass/Vol] 1.3 0.5-1.1 mg/dL High 02-25-20 [facility] (00 000) Comment: Performed By: #### [id number] #### MARCUSShawn WilcoxHemo [facility] [place] [address] Glucose [Mass/Vol] 89 70-99 mg/dL Normal 02-24-2019 [facility] (07334) Comment: Performed By: #### [id number] #### MARCUSShawn WilcoxHemo [facility] [place] [address] Potassium [Moles/Vol] 4.5 3.5-5.3 mEq/L Normal 02-25-20 [facility] () Comment: Performed By: #### [id number] #### MARCUSShawn WilcoxHemo [address] [place] [address] 24598 Sodium [Moles/Vol] 138 136-145 mEq/L Normal 02-24-2019 [facility] ( 000) Comment: Performed By: #### [id number] #### MARCUS Kostaso [address] [place] [address] 47[address] Urea nitrogen [Mass/Vol] 15 6-23 mg/dL Normal 02-24 [facility] (00 000) Comment: Performed By: #### [id number] #### MARCUSShawn WilcoxHemo [facility] [place] [address] Urea nitrogen/Creatinine 11.5 5.4-30.0 ratio Normal 02-24 [facility] [Mass ratio] [facility] (14998) Comment: Performed By: #### [id number] #### MARCUS JeriHemo [facility] [place] [address] zzplt morph on 2018 Platelet morphology finding NORMAL Normal [facility] (d) System (00 000) Comment: Performed By: #### [id number] #### MARCUSShawn WilcoxHemo [address] [place] [address]79[address] Platelets (Bld) [#/Vol] DECREASED Normal 2018 [facility] (00 000) Comment: Performed By: #### [id number] #### MARCUS Kenyono [address] [place] [address] 03530 manual diff on 2018 Band form neutrophils/100 WBC 9 0-1 High 02-23-2019 [facility] (d) System (00 000) Comment: Order Comment: Order Added b y Discern Expert. Performed By: #### [id number] #### MARCUS WilcoxHemo [address] [place] [address] Basophil Man 0 0-1 % Normal 02-23-2019 [facility] (75975) Comment: Order Comment: Order Added b y Discern Expert. Performed By: #### [id number] #### MARCUS WilcoxHemo [address] [place] [address] 85745 Eosinophils/100 WBC (Bld) 2 0-5 % Normal [facility] (99990) Comment: Order Comment: Order Added b y Discern Expert. Performed By: #### [id number] #### MARCUS WilcoxHemo [address] [place] [address] Lymphocytes/100 WBC (Bld) 33 14-48 % Normal [facility] (00 000) Comment: Order Comment: Order Added b y Discern Expert. Performed By: #### [id number] #### MARCUS WilcoxHemo [address] [place] [address]67[address] [place] Man 3 0-0 % High 02-23-2019 [facility] (13512) Comment: Order Comment: Order Added b y Discern Expert. Performed By: #### [id number] #### MARCUS RemHemo [address] [place] [address] Monocyte Man 11 1-11 % Normal 02-23-2019 [facility] (27043) Comment: Order Comment: Order Added b y Discern Expert. Performed By: #### [id number] #### MARCUS RemHemo [address] [place] [address] Myelo Man 2 0-0 % High 02-23-2019 [facility] (23244) Comment: Order Comment: Order Added erma y Discern Expert. Performed By: #### [id number] #### MARCUS WilcoxKarlo [address] [place] [address] Ovalocytes 1+ Normal 02-23-2019 [facility] (36628) Comment: Order Comment: Order Added b y Discern Expert. Performed By: #### [id number] #### MARCUSShawn Luong [facility] [place] [id number] Polychromasia 1+ Normal 02-23-2019 [facility] (12092) Comment: Order Comment: Order Added b y Discern Expert. Performed By: #### [id number] #### MARCUSShawn Luong [facility] [place] [id number] RBC morphology finding SEE MORPHOLOGY Normal [facility] ([facility]) Health Sys tem (80319) Comment: Order Comment: Order Added erma y Discern Expert. Performed By: #### [id number] #### MARCUS JeriRahul [address] [place], [place] [id number] Segs Man 40 37-75 % Normal 02-23-2019 [facility] (85646) Comment: Order Comment: Order Added b y Discern Expert. Performed By: #### [id number] #### MARCUS Kenyoncorky [address] [place] [address] lamotrigine lvl on 2019-02-23 Lamotrigine Lvl None Detected 2.0-20.0 Normal 02-23-2019 [facility] (00 000) Comment: Result Comment: This test wa s developed and its performance characteristics determined by [facility]. It guzman s not been cleared or approved by the Food and Nabeel g Administration. Detection Limit = 1.0 Performed At: [facility] [id number] Aramis Sharpe MD Performed By: #### [id number] #### MARCUS Kenyono [facility] [place] [id number] egfr on 2019-02-23 GFR/1.73 sq M predicted 50 mL/min/1.73 m2 Normal 0 02-23-2019 [facility] among non-blacks [facility] System (84214) (S/P/Bld) [Vol rate/Area] Comment: Order Comment: Order Added b dl Aldana Expert. Performed By: #### [id number] #### MARCUS WilcoxKarlo [facility] [place] [address] GFR/1.73 sq M predicted 60 mL/min/1.73 m2 Normal 0 02-23-2019 [facility] among non-blacks [facility] (29586) (S/P/Bld) [Vol rate/Area] Comment: Order Comment: Order Added erma Aldana Expert. Performed By: #### [id number] #### MARCUSShawn Kenyono [facility] [place] [address] cmp on 2019-02-23 Albumin [Mass/Vol] 3.3 3.4-5.0 gm/dL Low 02-23-2019 [facility] (14899) Comment: Performed By: #### [id number] #### MARCUS Kostaso [address] [place] [address] 35081 Albumin/Globulin [Mass 1.5 1.1-1.9 ratio Normal [facility]] Health Sys tem (92541) Comment: Performed By: #### [id number] #### MARCUS WilcoxHemo [facility] [place] [address] Alk Phos 57 33-110 Int._Unit/L Normal 02-23-2019 [facility] (26803) Comment: Performed By: #### [id number] #### MARCUS JeriHemo [facility] [place] [address] ALT [Catalytic 12 7-45 Int._Unit/L Normal 02-23-2019 [facility] (37752) Comment: Performed By: #### [id number] #### MARCUS JeriHemo [address] [place] [address] Anion gap [Moles/Vol] 10 10-20 mEq/L Normal 02-24-20 19 [facility] (00 000) Comment: Performed By: #### [id number] #### MARCUS WilcoxHemo [address] [place] [address] AST [Catalytic 20 9-39 Int._Unit/L Normal 02-23-2019 [facility] activity/[facility] (06119) Comment: Performed By: #### [id number] #### MARCUS RemHemo [address] [place] [address] Bili Total 0.33 0.00-1.20 mg/dL Normal 02-23-2019 [facility] (30299) Comment: Performed By: #### [id number] #### MARCUS JeriHemo [address] [place] [address] Calcium [Mass/Vol] 8.3 8.6-10.3 mg/dL Low 02-23-2019 [facility] (58190) Comment: Performed By: #### [id number] #### MARCUS JeriHemo [address] [place] [address] Chloride [Moles/Vol] 114 98-107 mEq/L High 9 [facility] () Comment: Performed By: #### [id number] #### MARCUS RemHemo [facility] [place] [address] CO2 [Moles/Vol] 22.0 21.0-32.0 mEq/L Normal 02-23-2019 [facility] (00 000) Comment: Performed By: #### [id number] #### MARCUS RemHemo [facility] [place] [address] Creatinine [Mass/Vol] 1.2 0.5-1.1 mg/dL High 02-24-20 19 [facility] (00 000) Comment: Performed By: #### [id number] #### AMRCUS RemHemo [facility] [place] [address] Globulin (S) [Mass/Vol] 2.0 2.0-4.0 G/DL Normal 2018 [facility] (00 000) Comment: Performed By: #### [id number] #### MARCUS RemHemo [address] [place] [address] Glucose [Mass/Vol] 86 70-99 mg/dL Normal 02-23-2019 [facility] (23119) Comment: Performed By: #### [id number] #### MARCUS RemHemo [address] [place] [address] Potassium [Moles/Vol] 4.4 3.5-5.3 mEq/L Normal 02-24-20 19 [facility] (00 000) Comment: Performed By: #### [id number] #### MARCUS WilcoxHemo [address] [place] [address] Protein [Mass/Vol] 5.5 6.4-8.2 gm/dL Low 02-23-2019 [facility] (43703) Comment: Performed By: #### [id number] #### MARCUS JeriHemo [facility] [place] [address] Sodium [Moles/Vol] 141 136-145 mEq/L Normal 02-23-2019 [facility] (00 000) Comment: Performed By: #### [id number] #### MARCUS JeriHemo [facility] [place] [address] Urea nitrogen [Mass/Vol] 11 6-23 mg/dL Normal 02-23 [facility] (00 ) Comment: Performed By: #### [id number] #### MARCUS JeriHemo [address] [place] [address]74[address] Urea nitrogen/Creatinine 9.2 5.4-30.0 ratio Normal 02-23 [facility] [Mass ratio] [facility] (09594) Comment: Performed By: #### [id number] #### MARCUS JeriHemo [facility] [place] [address] cbc w/ auto diff on 2019-02-23 Erythrocyte distribution 14.7 11.5-14.5 % High 02-23 [facility] width (RBC) [Ratio] Health System (07531) Comment: Performed By: #### [id number] #### MARCUS JeriHemo [facility] [place] [address] Hematocrit (Bld) [Volume 35.2 36.0-48.0 % Low 02-23 [facility]] System (00 000) Comment: Performed By: #### [id number] #### MARCUS JeriHemo [facility] [place] [address] Hemoglobin (Bld) 11.7 12.0-16.0 G/DL Low 02-23-2019 [facility] [Mass/Vol] Health Sy stem (22948) Comment: Performed By: #### [id number] #### MARCUS WilcoxKarlo [facility] [place] [address] MCH (RBC) [Entitic mass] 31.2 27.0-31.0 pg High 02-23 [facility] ( 000) Comment: Performed By: #### [id number] #### MARCUS WilcoxKarlo [facility] [place] [address] MCHC (RBC) [Mass/Vol] 33.2 33.0-37.0 G/DL Normal 02-24-20 19 [facility] () Comment: Performed By: #### [id number] #### MARCUS JeriHemo [facility] [place] [address] MCV (RBC) [Entitic vol] 93.8 78.0-100.0 fL Normal 02-23 [facility] (38695) Comment: Performed By: #### [id number] #### MARCUS WilcoxHemo [address] [place] [address] 19153 Platelet mean volume 7.6 7.4-11.0 fL Normal 9 [facility] (Bld) [Entitic vol] System (01484) Comment: Performed By: #### [id number] #### MARCUS WilcoxHemo [facility] [place] [address] Platelets (Bld) [#/Vol] 56 130-400 E3/mcL Low 2018 [facility] () Comment: Performed By: #### [id number] #### MARCUS JeriHemo [address] [place] [address] 40553 RBC (Bld) [#/Vol] 3.75 3.90-5.40 E6/mcL Low 02-23-2019 [facility] () Comment: Performed By: #### [id number] #### MARCUSShawn WilcoxHemo [facility] [place] [address] WBC (Bld) [#/Vol] 2.4 3.6-11.0 E3/mcL Low 02-23-2019 [facility] (84998) Comment: Performed By: #### [id number] #### MARCUS Kenyono [facility] [place] [address] c urine on C Urine Final Report: Rare Normal Normal 05-0 [facility] skin joe isolated System (89342) Comment: Performed By: #### [id number] #### MARCUS Kenyono [facility] [place] [address] ammonia on Ammonia (P) [Mass/Vol] 53 16-53 mcmol/L Normal 019 [facility] (00 000) Comment: Performed By: #### [id number] #### MARCUS Kenyono [address] [place] [address] .manual abs on 2018 Basophil Abs Man 0.0 0.0-0.2 10x3/ Normal 02-23-2019 [facility] (18315) Comment: Order Comment: Order Added b y Discern Expert. Performed By: #### [id number] #### MARCUS Kostascorky [address] [place] [address] Eos Abs Man 0.0 0.0-0.5 10x3/ Normal 02-23-2019 [facility] (89848) Comment: Order Comment: Order Added b y Discern Expert. Performed By: #### [id number] #### MARCUS Kenyono [address] [place] [address] Lymph Abs Man 0.8 1.2-3.4 10x3/ Low 02-23-2019 [facility] (60590) Comment: Order Comment: Order Added b y Discern Expert. Performed By: #### [id number] #### MARCUS Kostaso [address] [place] [address] Ross Abs Man 0.3 0.0-0.7 10x3/ Normal 02-23-2019 [facility] (97131) Comment: Order Comment: Order Added b y Discern Expert. Performed By: #### [id number] #### MARCUS Kostaso [address] [place], [place] [id number] Segs Abs Man 1.0 1.4-6.5 10x3/ Low 02-23-2019 [facility] (19533) Comment: Order Comment: Order Added b y Discern Expert. Performed By: #### [id number] #### MARCUSShawn WilcoxHemo [facility] [place] [address] zzplt morph on 2018 Platelet morphology finding ENLARGED Normal [facility] (d) System (00 000) Comment: Performed By: #### [id number] #### MARCUSShawn Kenyono [facility] [place] [address] Platelets (Bld) [#/Vol] DECREASED Normal 2018 [facility] (00 000) Comment: Performed By: #### [id number] #### MARCUS JeriHemo [address] [place] [address] valproic acid on 05-03-08 Valpro Acid Lvl 75 50-100 microgram/mL Normal 02-22-2019 [facility] (00 000) Comment: Performed By: #### [id number] #### MARCUS Jeri[address] [address] phosphorus on 02-22 Phosphate [Mass/Vol] 2.7 2.5-4.9 mg/dL Normal 9 [facility] (00 000) Comment: Performed By: #### [id number] #### MARCUS Kostaso [address] [place] [address] 45561 manual diff on 2018 Anisocytosis Ql (Bld) 1+ Normal 02-23-20 [facility] (54470) Comment: Order Comment: Order Added erma y Discern Expert. Performed By: #### [id number] #### MARCUSShawn Luong [address] [place] [address] Basophil Man 0 0-1 % Normal 02-22-2019 [facility] (25439) Comment: Order Comment: Order Added b y Discern Expert. Performed By: #### [id number] #### MARCUSShawn Kenyono [address] [place] [address] Eosinophils/100 WBC (Bld) 0 0-5 % Normal 05-0 [facility] (04832) Comment: Order Comment: Order Added b y Discern Expert. Performed By: #### [id number] #### MARCUS Kenyono [address] [place] [address] Lymphocytes/100 WBC (d) 51 14-48 % High 05- 8-2018 [facility] (75622) Comment: Order Comment: Order Added erma Aldana Expert. Performed By: #### [id number] #### MARCUS Kenyono [address] [place] [address] Monocyte Man 9 1-11 % Normal 02-22-2019 [facility] (27403) Comment: Order Comment: Order Added b dl Discern Expert. Performed By: #### [id number] #### MARCUS JeriRahul [facility] [place] [address] RBC morphology finding SEE MORPHOLOGY Normal [facility] ([facility]) Health Sys tem (39795) Comment: Order Comment: Order Added erma Aldana Expert. Performed By: #### [id number] #### MARCUS Kostaso [address] [place] [address] 79396 Segs Man 40 37-75 % Normal 02-22-2019 [facility] (96491) Comment: Order Comment: Order Added erma Aldana Expert. Performed By: #### [id number] #### MARCUS Kenyono [address] [place] [address] 09945 magnesium on 08 Magnesium [Mass/Vol] 1.8 1.6-2.4 mg/dL Normal 9 [facility] (00 000) Comment: Performed By: #### [id number] #### MARCUSShawn Kenyon[address] [address] hgba1c on 8 HbA1c ([facility]) [Mass fraction] 5.1 4.0-6.3 % Normal [facility] (00 000) Comment: Performed By: #### [id number] #### MARCUSShawn Kenyono [address] [place], [place] [id number] gases - blood on 05-03-08 Allens Test. Normal 02-22-2019 [facility] (83446) Comment: Performed By: #### [id number] #### MARCUS [facility]iCentral [facility] Psychiatric Centero [address] [place], [place] [id number] Base Excess. -9 -2-3 mmol/L Low 02-22-2019 [facility] (75048) Comment: Performed By: #### [id number] #### MARCUS RemHemo [facility] [place] [address] CO2 Tot. 17 22-28 mmol/L Low 02-22-2019 [facility] (27128) Comment: Performed By: #### [id number] #### MARCUS RemHemo [facility] [place] [address] CPAP/PEEP(cmH2O). NOT CALCULATED Normal 019 [facility] (00 000) Comment: Performed By: #### [id number] #### MARCUS RemHemo [facility] [place] [address] FiO2. 21 % Normal 02-22-2019 [facility] (89538) Comment: Performed By: #### [id number] #### MARCUS RemHemo [facility] [place] [address] HCO#. 16.3 22.0-26.0 mmol/L Low 02-22-2019 [facility] (11943) Comment: Performed By: #### [id number] #### MARCUS RemHemo [facility] [place] [address] O2 Devices. Room Air Normal 02-22-2019 [facility] (09232) Comment: Performed By: #### [id number] #### MARCUS RemHemo [facility] [place] [address] OPID. [id number] Normal 02-22-2019 [facility] (93609) Comment: Performed By: #### [id number] #### MARCUS RemHemo [facility] [place] [id number] Oxygen (Bld) [Partial 101 80-100 mmHg High 02-23-20 [facility]] System (00 000) Comment: Performed By: #### [id number] #### MARCUS RemHemo [facility] [place] [address] Oxygen saturation in Blood 98 95-100 % Normal [facility] (00 000) Comment: Performed By: #### [id number] #### [place] [address] P CO2. 28.4 35.0-45.0 mmHg Low 02-22-2019 [facility] (69598) Comment: Performed By: #### [id number] #### [place] [address] Patient Temp. NOT CALCULATED Normal 02-22-2019 [facility] (64634) Comment: Performed By: #### [id number] #### [place] [address] pH (Bld) 7.367 7.350-7.450 Normal 02-22-2019 [facility] (34545) Comment: Performed By: #### [id number] #### [place] [address] PSV/IP(cmH2O). NOT CALCULATED Normal 02-22-2019 [facility] (73553) Comment: Performed By: #### [id number] #### [place] [address] Sample Site. R brach Normal 02-22-2019 [facility] (43373) Comment: Performed By: #### [id number] #### [place] [address] Sample Type. Arterial Normal 02-22-2019 [facility] (12181) Comment: Performed By: #### [id number] #### [place] [address] Set RR(b/min). NOT CALCULATED Normal 02-22-2019 [facility] (30263) Comment: Performed By: #### [id number] #### MARCUS JeriCentral [facility] Psychiatric Centero [address] [place] [address] Tidal Volume(mL). NOT CALCULATED Normal 019 [facility] (00 000) Comment: Performed By: #### [id number] #### MARCUS [facility] [address] [place] [address] Vent Mode. NOT CALCULATED Normal 02-22-2019 [facility] (67725) Comment: Performed By: #### [id number] #### MARCUS Kenyono [address] [place] [address] egfr on 2019-02-22 GFR/1.73 sq M predicted 56 mL/min/1.73 m2 Normal 0 02-22-2019 [facility] among non-blacks [facility] Health System (83050) (S/P/Bld) [Vol rate/Area] Comment: Order Comment: Order added erma Aldana Expert. Performed By: #### [id number] # ### MARCUS JeriHemo [facility]5 [place] [address] GFR/1.73 sq M predicted 46 mL/min/1.73 m2 Normal 0 02-22-2019 [facility] non-blacks MDRD [facility] (05992) (S/P/Bld) [Vol rate/Area] Comment: Order Comment: Order added erma Aldana Expert. Performed By: #### [id number] # ### MARCUS JeriHemo [address] [place] [address] 13971 cbc w/ auto diff on 2019-02-22 Erythrocyte distribution 15.0 11.5-14.5 % High 02-22 [facility] width (RBC) [Ratio] Health System (87823) Comment: Performed By: #### [id number] #### MARCUS JeriHemo [facility]5 [place] [address] Hematocrit (Bld) [Volume 35.9 36.0-48.0 % Low 02-22 [facility] Health fraction] System (00 000) Comment: Performed By: #### [id number] #### MARCUS JeriHemo [facility]5 [place] [address] Hemoglobin (Bld) 11.8 12.0-16.0 G/DL Low 02-22-2019 [facility] [Mass/Vol] Health Sy stem (94411) Comment: Performed By: #### [id number] #### MARCUSShawn WilcoxHemo [facility]5 [place] [address] MCH (RBC) [Entitic mass] 31.1 27.0-31.0 pg High 02-22 [facility] System (00 000) Comment: Performed By: #### [id number] #### MARCUS [facility] Center[facility]5 [place] [address] MCHC (RBC) [Mass/Vol] 32.9 33.0-37.0 G/DL Low 02-23-20 [facility] (00 000) Comment: Performed By: #### [id number] #### MARCUS WilcoxHemo [facility]5 [place] [address] MCV (RBC) [Entitic vol] 94.6 78.0-100.0 fL Normal 02-22 [facility] Sys tem (18707) Comment: Performed By: #### [id number] #### MARCUS WilcoxHemo [facility]5 [place] [address] Platelet mean volume 7.9 7.4-11.0 fL Normal 9 [facility] (Bld) [Entitic vol] System (72144) Comment: Performed By: #### [id number] #### MARCUS WilcoxHemo [facility]5 [place] [address] Platelets (Bld) [#/Vol] 62 130-400 E3/mcL Low 2018 [facility] (00 000) Comment: Performed By: #### [id number] #### MARCUS WilcoxHemo [facility]5 [place] [address] RBC (Bld) [#/Vol] 3.79 3.90-5.40 E6/mcL Low 02-22-2019 [facility] (00 000) Comment: Performed By: #### [id number] #### MARCUS WilcoxHemo [facility]5 [place] [address] WBC (Bld) [#/Vol] 2.8 3.6-11.0 E3/mcL Low 02-22-2019 [facility] (17919) Comment: Performed By: #### [id number] #### MARCUS JeriHemo [address] [place] [address] bmp on 2019-02-22 Anion gap [Moles/Vol] 10 10-20 mEq/L Normal 02-23-20 [facility] (00 000) Comment: Performed By: #### [id number] # ### MARCUS WilcoxHemo [address] [place] [address] Calcium [Mass/Vol] 7.7 8.6-10.3 mg/dL Low 02-22-2019 [facility] (54249) Comment: Performed By: #### [id number] # ### MARCUS WilcoxHemo [address] [place] [address] Chloride [Moles/Vol] 115 98-107 mEq/L High 9 [facility] (00 000) Comment: Performed By: #### [id number] # ### MARCUS WilcoxHemo [address] [place] [address] CO2 [Moles/Vol] 20.0 21.0-32.0 mEq/L Low 02-22-2019 [facility] (21474) Comment: Performed By: #### [id number] # ### MARCUS WilcoxHemo [address] [place] [address] Creatinine [Mass/Vol] 1.2 0.5-1.1 mg/dL High 02-23-20 19 [facility] (00 000) Comment: Performed By: #### [id number] # ### MARCUS JeriHemo [address] [place] [address] Glucose [Mass/Vol] 89 70-99 mg/dL Normal 02-22-2019 [facility] (98933) Comment: Performed By: #### [id number] # ### MARCUS WlicoxHemo [facility]5 [place] [address] Potassium [Moles/Vol] 4.3 3.5-5.3 mEq/L Normal 02-23-20 19 [facility] (00 000) Comment: Performed By: #### [id number] # ### MARCUS RemHemo [facility]5 [place] [address] Sodium [Moles/Vol] 141 136-145 mEq/L Normal 02-22-2019 [facility] (00 000) Comment: Performed By: #### [id number] # ### MARCUS RemHemo [address] [place] [address] Urea nitrogen [Mass/Vol] 14 6-23 mg/dL Normal 02-22 [facility] (00 000) Comment: Performed By: #### [id number] # ### MARCUS RemHemo [address] [place] [address] Urea nitrogen/Creatinine 11.7 5.4-30.0 ratio Normal 02-22 [facility] [Mass ratio] [facility] (75825) Comment: Performed By: #### [id number] # ### MARCUS Kenyono [address] [place] [address] .manual abs on 2018 Basophil Abs Man 0.0 0.0-0.2 10x3/ Normal 02-22-2019 [facility] (76567) Comment: Order Comment: Order Added b y Discern Expert. Performed By: #### [id number] #### MARCUSShawn WilcoxKarlo [address] [place] [address] Eos Abs Man 0.0 0.0-0.5 10x3/ Normal 02-22-2019 [facility] (04516) Comment: Order Comment: Order Added b y Discern Expert. Performed By: #### [id number] #### MACRUSShawn WilcoxKarlcorky [address] [place] [address] Lymph Abs Man 1.4 1.2-3.4 10x3/ Normal 02-22-2019 [facility] (30437) Comment: Order Comment: Order Added b y Discern Expert. Performed By: #### [id number] #### MARCUSShwan WilcoxHemo [address] [place] [address] Ross Abs Man 0.3 0.0-0.7 10x3/ Normal 02-22-2019 [facility] (16525) Comment: Order Comment: Order Added b y Discern Expert. Performed By: #### [id number] #### MARCUS Kostaso [address] [place] [address] Segs Abs Man 1.1 1.4-6.5 10x3/ Low 02-22-2019 [facility] (30813) Comment: Order Comment: Order Added b y Discern Expert. Performed By: #### [id number] #### [place] [address] zzplt morph on 2018 Platelet morphology finding ENLARGED Normal [facility] (d) System (00 000) Comment: Performed By: #### [id number] #### MARCUS Urinalysis Automated Suggs bsection [address] [place] [address] Platelets (Bld) [#/Vol] DECREASED Normal 2018 [facility] (00 000) Comment: Performed By: #### [id number] #### MARCUS Urinalysis Automated [facility] bsection [address] [place] [address] valproic acid on 05-03-07 Valpro Acid Lvl 102 50-100 microgram/mL Critically 02-21-2019 Sikh abnormal [facility]alt System (00 000) Comment: Result Comment: Critical Res ult (s) Called to and read back by: XUAN GARCIA at: 02/21/2019 18:51 :29 by:ZOFIA Performed By: #### [id number] # ### MARCUS RemHemo [address] [place] [address] Valpro Acid Lvl 101 50-100 microgram/mL Critically 02-21-2019 [facility] H ealt System (00 000) Comment: Result Comment: Critical Res ult (s) Called to and read back by: XUAN GARCIA at: 02/21/2019 13:43 :39 by:RAY Performed By: #### [id number] # ### MARCUS Microbiology Subsection [facility] [place] [id number] ua complete on 2018 Color (U) Straw Yellow Normal 02-21-2019 [facility] (38185) Comment: Order Comment: Straight Cath as needed Performed By: #### [id number] # ### MARCUS Microbiology Subsection [address] [place] [address] Glucose (U) [Mass/Vol] Negative Negative mg/dL Normal 019 [facility] Sys tem (24135) Comment: Order Comment: Straight Cath as needed Performed By: #### [id number] # ### MARCUS Microbiology Subsection [address] [place] [address] Ketones Ql (U) Negative Negative Normal 02-21-2019 [facility] (18652) Comment: Order Comment: Straight Cath as needed Performed By: #### [id number] # ### MARCUS Microbiology Subsection [address] [place] [address] RBC (U) [#/Vol] 0-3 0-3 Normal 02-21-2019 [facility] (59242) Comment: Order Comment: Straight Cath as needed Performed By: #### [id number] # ### MARCUS Microbiology Subsection [address] [place] [address]101[address] UA Blood Negative Negative Normal 02-21-2019 [facility] (54127) Comment: Order Comment: Straight Cath as needed Performed By: #### [id number] # ### MARCUS Microbiology Subsection [address] [place] [address] 84485 UA Bacteria Trace None Abnormal 02-21-2019 [facility] (82196) Comment: Order Comment: Straight Cath as needed Performed By: #### [id number] # ### MARCUS Microbiology Subsection [address] [place] [address]391 UA Clarity SltCloudy Clear Abnormal 02-21-2019 [facility] (79964) Comment: Order Comment: Straight Cath as needed Performed By: #### [id number] # ### MARCUS Microbiology Subsection [address] [place] [address] 02204 UA Leuk Est 1+ Negative Abnormal 02-21-2019 [facility] (33582) Comment: Order Comment: Straight Cath as needed Performed By: #### [id number] # ### MARCUS Microbiology Subsection [address] [place] [address] 19302 UA Mucous Trace Trace Abnormal 02-21-2019 [facility] (42194) Comment: Order Comment: Straight Cath as needed Performed By: #### [id number] # ### MARCUS Microbiology Subsection [address] [place] [address]1983 UA Nitrite Negative Negative Normal 02-21-2019 [facility] (47599) Comment: Order Comment: Straight Cath as needed Performed By: #### [id number] # ### MARCUS Microbiology Subsection [address] [place] [address] 62341 UA pH 5.0 4.6-8.0 Normal 02-21-2019 [facility] (04217) Comment: Order Comment: Straight Cath as needed Performed By: #### [id number] # ### MARCUS Microbiology Subsection [address] [place] [address] 07633 UA Protein Negative Negative Normal 02-21-2019 [facility] (17196) Comment: Order Comment: Straight Cath as needed Performed By: #### [id number] # ### MARCUS Microbiology Subsection [facility] [place] [address] UA Spec Grav 1.005 1.003-1.030 Normal 02-21-2019 [facility] (35223) Comment: Order Comment: Straight Cath as needed Performed By: #### [id number] # ### MARCUS Microbiology Subsection [facility] [place] [address] UA Squam Epithelial 5-10 0-5 Abnormal 02-21-2019 [facility] (99699) Comment: Order Comment: Straight Cath as needed Performed By: #### [id number] # ### MARCUS Microbiology Subsection [address] [place] [address] 47[address] UA Urobilinogen Negative Normal 02-21-2019 [facility] (79885) Comment: Order Comment: Straight Cath as needed [...] laboratory within 24 hours. Performed By: #### [id number] # ### MARCUS Microbiology Subsection [address] [place] [address]802 UA WBC 0-5 0-5 Normal 02-21-2019 [facility] (14642) Comment: Order Comment: Straight Cath as needed Performed By: #### [id number] # ### MARCUS Microbiology Subsection [address] [place] [address] 16277 Urobilinogen Qn (U) Negative Negative Normal 02-21-2019 [facility] (00 000) Comment: Order Comment: Straight Cath as needed Performed By: #### [id number] # ### MARCUS Microbiology Subsection [address] [place] [address]151 u sodium on 2019-02 Sodium [Moles/Vol] 36 mmol/L Normal 02-21-2019 [facility] (22409) Comment: Performed By: #### [id number] # ### MARCUS Microbiology Subsection [address] [place] [address] 59277 u protein on 02-21 Protein [Mass/Vol] 4 1-14 mg/dL Normal 02-21-2019 [facility] (40155) Comment: Performed By: #### [id number] # ### MARCUS RemHemo [address] [place] [address] u creatinine on 201 06-22-07 U Creatinine 31 20-300 mg/dL Normal 02-21-2019 [facility] (98983) Comment: Performed By: #### [id number] # ### MARCUS RemHemo [address] [place] [address] u bhcg qlt on 02-21 HCG.beta subunit Qn Neg Neg m[IU]/mL Normal 02-21-2019 [facility] (00 000) Comment: Performed By: #### [id number] # ### MARCUS Microbiology Subsection [address] [place] [address] tsh on 2019-02-21 TSH Qn 4.82 0.30-5.60 mcIU/mL Normal 02-21-2019 [facility] (93938) Comment: Order Comment: With T4fr Ref kurt Performed By: #### [id number] # ### MARCUS Microbiology Subsection [address] [place] [id number] salicylate on 02-21 Salicylate Lvl <1.5 4.0-20.0 Low 02-21-2019 [facility] (92472) Comment: Performed By: #### [id number] # ### MARCUS RemHemo [address] [place] [address] morph on 2019-02-21 Polychromasia 1+ Normal 02-21-2019 [facility] (28988) Comment: Order Comment: Straight Cath as needed Performed By: #### [id number] #### MARCUS Urinalysis Automated [facility] bsection [address] [place] [address] RBC morphology finding SEE MORPHOLOGY Normal [facility] (d) Health Sys tem (73958) Comment: Order Comment: Straight Cath as needed Performed By: #### [id number] #### MARCUS Urinalysis Automated [facility] bsection [address] [place] [address] Teardrop Cell 1+ Normal 02-21-2019 [facility] (76788) Comment: Order Comment: Straight Cath as needed Performed By: #### [id number] #### MARCUS Urinalysis Automated [facility] bsection [address] [place] [address] magnesium on 02-21 Magnesium [Mass/Vol] 1.7 1.6-2.4 Int._Unit/L Normal [facility] Sys tem (57175) Comment: Performed By: #### [id number] # ### MARCUS Microbiology Subsection [address] [place] [address] lipase level on 06-22-07 Lipase Lvl 37 9-82 Int._Unit/L Normal 02-21-2019 [facility] (51284) Comment: Performed By: #### [id number] #### MARCUS Urinalysis Automated [facility] bsection [address] [place], [place] [address] lactic acid on 2018 Lactate [Moles/Vol] 1.4 0.4-2.0 mmol/L Normal 02-21-2019 [facility] (00 000) Comment: Order Comment: Sepsis Reflex order due to high lactic acid level Performed By: #### [id number] # ### MARCUS RemHemo [address] [place] [address] Lactate [Moles/Vol] 2.2 0.4-2.0 mmol/L High 02-21-2019 [facility] (00 000) Comment: Performed By: #### [id number] # ### MARCUS RemHemo [facility] [place] [address] hep func panel on Albumin [Mass/Vol] 4.0 3.4-5.0 gm/dL Normal 02-21-2019 [facility] (00 000) Comment: Performed By: #### [id number] #### MARCUS Urinalysis Automated [facility] bsection [address] [place] [address] Albumin/Globulin [Mass 1.5 1.1-1.9 ratio Normal [facility] Sy tem (37221) Comment: Performed By: #### [id number] #### MARCUS Urinalysis Automated [facility] bsection [address] [place] [address] Alk Phos 69 33-110 Int._Unit/L Normal 02-21-2019 [facility] (41775) Comment: Performed By: #### [id number] #### MARCUS Urinalysis Automated [facility] bsection [address] [place] [address] ALT [Catalytic 18 7-45 Int._Unit/L Normal 02-21-2019 [facility] (55526) Comment: Performed By: #### [id number] #### MARCUS Urinalysis Automated [facility] bsection [address] [place] [address] AST [Catalytic 33 9-39 Int._Unit/L Normal 02-21-2019 [facility] (78153) Comment: Performed By: #### [id number] #### MARCUS Urinalysis Automated [facility] bsection [address] [place] [address] Bili Direct 0.10 0.00-0.30 mg/dL Normal 02-21-2019 [facility] (38931) Comment: Performed By: #### [id number] #### MARCUS Urinalysis Automated [facility] bsection [address] [place] [address] Bili Indirect 0.33 mg/dL Normal 02-21-2019 [facility] (49167) Comment: Result Comment: No establish ed ranges available for the indirect bilirubin Performed By: #### [id number] #### MARCUS Urinalysis Automated [facility] bsection [address] [place] [address] Bili Total 0.43 0.00-1.20 mg/dL Normal 02-21-2019 [facility] (74193) Comment: Performed By: #### [id number] #### MARCUS Urinalysis Automated [facility] bsection [address] [place] [address] Globulin (S) [Mass/Vol] 3.0 2.0-4.0 G/DL Normal 2018 [facility] (00 000) Comment: Performed By: #### [id number] #### MARCUS Urinalysis Automated [facility] bsection [address] [place] [address] Protein [Mass/Vol] 6.6 6.4-8.2 gm/dL Normal 02-21-2019 [facility] (00 000) Comment: Performed By: #### [id number] #### MARCUS Urinalysis Automated [facility] bsection [address] [place], [place] [address] gases - blood on 05-03-07 Allens Test. Positive Normal 02-21-2019 [facility] (17226) Comment: Performed By: #### [id number] # ### MARCUS RemHemo [address] [place] [address] Base Excess. -9 -2-3 mmol/L Low 02-21-2019 [facility] (17807) Comment: Performed By: #### [id number] # ### MARCUS RemHemo [facility] [place] [address] CO2 Tot. 18 22-28 mmol/L Low 02-21-2019 [facility] (61978) Comment: Performed By: #### [id number] # ### MARCUS RemHemo [address] [place] [address] CPAP/PEEP(cmH2O). 0 Normal 02-21-2019 [facility] (76736) Comment: Performed By: #### [id number] # ### MARCUS RemHemo [facility] [place] [address] FiO2. 21 % Normal 02-21-2019 [facility] (56789) Comment: Performed By: #### [id number] # ### MARCUS RemHemo [facility] [place] [address] HCO#. 17.2 22.0-26.0 mmol/L Low 02-21-2019 [facility] (02282) Comment: Performed By: #### [id number] # ### MARCUS RemHemo [facility] [place] [address] O2 Devices. Room Air Normal 02-21-2019 [facility] (53434) Comment: Performed By: #### [id number] # ### MARCUS RemHemo [address] [place] [id number] OPID. [id number] Normal 02-21-2019 [facility] (19070) Comment: Performed By: #### [id number] # ### MARCUS RemHemo [address] [place] [address] Oxygen (Bld) [Partial 85 80-100 mmHg Normal 02-22-20 19 [facility]] System (00 000) Comment: Performed By: #### [id number] # ### MARCUS Kostaso [facility] [place] [id number] Oxygen saturation in Blood 96 95-100 % Normal [facility] (00 000) Comment: Performed By: #### [id number] # ### MARCUSShawn WilcoxKarlo [facility] [place] [id number] P CO2. 32.7 35.0-45.0 mmHg Low 02-21-2019 [facility] (39456) Comment: Performed By: #### [id number] # ### MARCUS Kostaso [facility] [place] [id number] Patient Temp. NOT CALCULATED Normal 02-21-2019 [facility] (05704) Comment: Performed By: #### [id number] # ### MARCUS Kostaso [address] [place] [address] pH (Bld) 7.329 7.350-7.450 Low 02-21-2019 [facility] (58384) Comment: Performed By: #### [id number] # ### MARCUS Kostaso [address] [place] [address] PSV/IP(cmH2O). 0 Normal 02-21-2019 [facility] (70057) Comment: Performed By: #### [id number] # ### MARCUS Kostaso [address] [place] [address] Sample Site. R rad Normal 02-21-2019 [facility] (26578) Comment: Performed By: #### [id number] # ### MARCUSShawn WilcoxHemo [facility] [place] [address] Sample Type. Arterial Normal 02-21-2019 [facility] (66695) Comment: Performed By: #### [id number] # ### MARCUSShawn WilcoxKarlo [facility] [place] [id number] Set RR(b/min). 0 Normal 02-21-2019 [facility] (35081) Comment: Performed By: #### [id number] # ### MARCUSShawn WilcoxHemo [address] [place] [address] Tidal Volume(mL). 0 Normal 02-21-2019 [facility] (75630) Comment: Performed By: #### [id number] # ### MARCUSShawn WilcoxHemo [address] [place] [address] Vent Mode. NOT CALCULATED Normal 02-21-2019 [facility] (07031) Comment: Performed By: #### [id number] # ### MARCUSShawn WilcoxHemo [facility] [place] [address] Allens Test. Neg Normal 02-21-2019 [facility] (07022) Comment: Performed By: #### [id number] # ### MARCUSShawn WilcoxHemo [facility] [place] [address] Base Excess. -8 -2-3 mmol/L Low 02-21-2019 [facility] (61211) Comment: Performed By: #### [id number] # ### MARCUSShawn WilcoxHemo [address] [place] [address] CO2 Tot. 19 22-28 mmol/L Low 02-21-2019 [facility] (16978) Comment: Performed By: #### [id number] # ### MARCUSShawn WilcoxHemo [facility] [place] [address] CPAP/PEEP(cmH2O). NOT CALCULATED Normal 019 [facility] (00 000) Comment: Performed By: #### [id number] # ### MARCUSShawn WilcoxHemo [facility] [place] [address] FiO2. 21 % Normal 02-21-2019 [facility] (04578) Comment: Performed By: #### [id number] # ### MARCUS RemHemo [facility] [place] [address] HCO#. 17.9 22.0-26.0 mmol/L Low 02-21-2019 [facility] (62794) Comment: Performed By: #### [id number] # ### MARCUSShawn WilcoxHemo [facility] [place] [address] O2 Devices. Room Air Normal 02-21-2019 [facility] (27128) Comment: Performed By: #### [id number] # ### MARCUS WilcoxHemo [address] [place] [address] OPID. [id number] Normal 02-21-2019 [facility] (42147) Comment: Performed By: #### [id number] # ### MARCUS WilcoxHemo [facility] [place] [address] Oxygen (Bld) [Partial 86 80-100 mmHg Normal 02-22-20 19 [facility]] System (00 000) Comment: Performed By: #### [id number] # ### MARCUS WilcoxHemo [facility] [place] [id number] Oxygen saturation in Blood 96 95-100 % Normal [facility] (00 000) Comment: Performed By: #### [id number] # ### MARCUS WilcoxHemo [address] [place], [place] [id number] P CO2. 34.1 35.0-45.0 mmHg Low 02-21-2019 [facility] (52398) Comment: Performed By: #### [id number] # ### MARCUS JeriHemo [address] [place] [address] Patient Temp. NOT CALCULATED Normal 02-21-2019 [facility] (14122) Comment: Performed By: #### [id number] # ### MARCUS Kenyono [facility] [place] [id number] pH (Bld) 7.329 7.350-7.450 Low 02-21-2019 [facility] (35273) Comment: Performed By: #### [id number] # ### MARCUS Kotsaso [address] [place], [place] [id number] PSV/IP(cmH2O). NOT CALCULATED Normal 02-21-2019 [facility] (95710) Comment: Performed By: #### [id number] # ### MARCUS JeriHemo [facility] [place] [address] Sample Site. R rad Normal 02-21-2019 [facility] (07821) Comment: Performed By: #### [id number] # ### MARCUS JeriHemo [facility] [place] [id number] Sample Type. Arterial Normal 02-21-2019 [facility] (25421) Comment: Performed By: #### [id number] # ### MARCUS RemHemo [address] [place] [address] Set RR(b/min). NOT CALCULATED Normal 02-21-2019 [facility] (50983) Comment: Performed By: #### [id number] # ### MARCUS RemHemo [address] [place] [address] Tidal Volume(mL). NOT CALCULATED Normal 019 [facility] (00 000) Comment: Performed By: #### [id number] # ### MARCUS RemHemo [address] [place] [id number] Vent Mode. NOT CALCULATED Normal 02-21-2019 [facility] (62210) Comment: Performed By: #### [id number] # ### MARCUS RemHemo [address] [place] [id number] ethanol on Ethanol [Mass/Vol] <10 <=10 mg/dL Normal 02-21-2019 [facility] (24367) Comment: Performed By: #### [id number] # ### MARCUS Microbiology Subsection [address] [place] [address] egfr on 2019-02-21 GFR/1.73 sq M predicted 49 mL/min/1.73 m2 Normal 0 02-21-2019 [facility] among non-blacks [facility] (42612) (S/P/Bld) [Vol rate/Area] Comment: Order Comment: Straight Cath as needed Performed By: #### [id number] #### MARCUS Urinalysis Automated Suggs bsection [address] [place] [address] GFR/1.73 sq M predicted 40 mL/min/1.73 m2 Normal 0 02-21-2019 [facility] among non-blacks [facility] (07151) (S/P/Bld) [Vol rate/Area] Comment: Order Comment: Straight Cath as needed Performed By: #### [id number] #### MARCUS Urinalysis Automated [facility] bsection [address] [place] [address] ck on 2019-02-21 Total CK 46 <=215 Int._Unit/L Normal 02-21-2019 [facility] (44884) Comment: Performed By: #### [id number] #### MARCUS Urinalysis Automated [facility] bsection [address] [place] [address] cbc w/ auto diff on 2019-02-21 Erythrocyte distribution 14.7 11.5-14.5 % High 02-21 [facility] width (RBC) [Ratio] Health System (26128) Comment: Performed By: #### [id number] #### MARCUS Urinalysis Automated [facility] bsection [address] [place] [address] Hematocrit (Bld) [Volume 41.4 36.0-48.0 % Normal 02-21 [facility] tem (49725) Comment: Performed By: #### [id number] #### MARCUS Urinalysis Automated [facility] bsection [address] [place] [address] Hemoglobin (Bld) 13.3 12.0-16.0 G/DL Normal 02-21-2019 [facility] [Mass/Vol] Health Sy stem (74317) Comment: Performed By: #### [id number] #### MARCUS Urinalysis Automated [facility] bsection [address] [place] [address] MCH (RBC) [Entitic mass] 30.7 27.0-31.0 pg Normal 02-21 [facility] (00 000) Comment: Performed By: #### [id number] #### MARCUS Urinalysis Automated [employer] bsection [address] [place] [address] MCHC (RBC) [Mass/Vol] 32.2 33.0-37.0 G/DL Low 02-22-20 19 [facility] (00 000) Comment: Performed By: #### [id number] #### MARCUS Urinalysis Automated [employer] bsection [address] [place] [address] MCV (RBC) [Entitic vol] 95.5 78.0-100.0 fL Normal 02-21 [facility] tem (15733) Comment: Performed By: #### [id number] #### MARCUS Urinalysis Automated [facility] bsection [address] [place] [address] Platelet mean volume 7.9 7.4-11.0 fL Normal 9 [facility] (d) [Entitic vol] System (93490) Comment: Performed By: #### [id number] #### MARCUS Urinalysis Automated [employer] bsection [address] [place] [address] Platelets (Bld) [#/Vol] 66 130-400 E3/mcL Low 2018 [facility] ( 000) Comment: Performed By: #### [id number] #### MARCUS Urinalysis Automated [facility] bsection [address] [place] [address] RBC (Bld) [#/Vol] 4.34 3.90-5.40 E6/mcL Normal 02-21-2019 [facility] () Comment: Performed By: #### [id number] #### MARCUS Urinalysis Automated [employer] bsection [address] [place] [address] WBC (Bld) [#/Vol] 4.2 3.6-11.0 E3/mcL Normal 02-21-2019 [facility] () Comment: Performed By: #### [id number] #### MARCUS Urinalysis Automated [employer] bsection [address] [place] [address] bmp on 2019-02-21 Anion gap [Moles/Vol] 18 10-20 mEq/L Normal 02-22-20 19 [facility] () Comment: Performed By: #### [id number] #### MARCUS Urinalysis Automated [facility] bsection [address] [place] [address] Calcium [Mass/Vol] 8.6 8.6-10.3 mg/dL Normal 02-21-2019 [facility] () Comment: Performed By: #### [id number] #### MARCUS Urinalysis Automated [employer] bsection [address] [place] [address] Chloride [Moles/Vol] 106 98-107 mEq/L Normal 9 [facility] () Comment: Performed By: #### [id number] #### MARCUS Urinalysis Automated [employer] bsection [address] [place] [address] CO2 [Moles/Vol] 16.0 21.0-32.0 mEq/L Low 02-21-2019 [facility] (80220) Comment: Performed By: #### [id number] #### MARCUS Urinalysis Automated [facility] bsection [address] [place] [address] Creatinine [Mass/Vol] 1.4 0.5-1.1 mg/dL High 02-22-20 [facility] (00 000) Comment: Performed By: #### [id number] #### MARCUS Urinalysis Automated [facility] bsection [address] [place] [address] Glucose [Mass/Vol] 165 70-99 mg/dL High 02-21-2019 [facility] (18565) Comment: Performed By: #### [id number] #### MARCUS Urinalysis Automated [facility] bsection [address] [place] [address] Potassium [Moles/Vol] 2.9 3.5-5.3 mEq/L Low 02-22-20 [facility] (00 000) Comment: Performed By: #### [id number] #### MARCUS Urinalysis Automated [facility] bsection [address] [place] [address] Sodium [Moles/Vol] 137 136-145 mEq/L Normal 02-21-2019 [facility] (00 000) Comment: Performed By: #### [id number] #### MARCUS Urinalysis Automated [facility] bsection [address] [place] [address] Urea nitrogen [Mass/Vol] 14 6-23 mg/dL Normal 02-21 [facility] (00 000) Comment: Performed By: #### [id number] #### MARCUS Urinalysis Automated [facility] bsection [address] [place] [address] Urea nitrogen/Creatinine 10.0 5.4-30.0 ratio Normal 02-21 [facility] [Mass ratio] [facility] (57679) Comment: Performed By: #### [id number] #### MARCUS Urinalysis Automated [facility] bsection [address] [place] [address] auto diff on 02-21 Basophils (Bld) [#/Vol] 0.0 0.0-0.2 E3/mcL Normal 2018 [facility] tem (71545) Comment: Order Comment: Order Added b y Discern Expert. Performed By: #### [id number] # ### MARCUS Microbiology Subsection [address] [place] [address] Basophils/100 WBC (Bld) 0.4 0.0-2.0 % Normal 2018 [facility] (00 000) Comment: Order Comment: Order Added b y Discern Expert. Performed By: #### [id number] # ### MARCUS Microbiology Subsection [address] [place] [address] Eos Absolute 0.1 0.0-0.7 E3/mcL Normal 02-21-2019 [facility] (20385) Comment: Order Comment: Order Added b y Discern Expert. Performed By: #### [id number] # ### MARCUS Microbiology Subsection [address] [place] [address] Eosinophils/100 WBC (Bld) 1.4 0.0-11.0 % Normal [facility] (00 000) Comment: Order Comment: Order Added b y Discern Expert. Performed By: #### [id number] # ### MARCUS Microbiology Subsection [address] [place] [address] Lymphocytes (Bld) [#/Vol] 1.0 1.2-3.4 E3/mcL Low [facility] (00 000) Comment: Order Comment: Order Added b y Discern Expert. Performed By: #### [id number] # ### MARCUS Microbiology Subsection [address] [place] [address] Lymphocytes/100 WBC (Bld) 24.1 20.0-55.0 % Normal [facility] tem (02038) Comment: Order Comment: Order Added b y Discern Expert. Performed By: #### [id number] # ### MARCUS Microbiology Subsection [address] [place] [address] Ross Absolute 0.5 0.0-0.7 E3/mcL Normal 02-21-2019 [facility] (71320) Comment: Order Comment: Order Added b y Discern Expert. Performed By: #### [id number] # ### MARCUS Microbiology Subsection [address] [place] [address]173 Monocytes/100 WBC (Bld) 10.8 0.0-10.0 % High 2018 [facility] (00 000) Comment: Order Comment: Order Added b y Discern Expert. Performed By: #### [id number] # ### MARCUS Microbiology Subsection [address] [place] [address]683 Neutro Absolute 2.7 1.4-6.5 E3/mcL Normal 02-21-2019 [facility] (47240) Comment: Order Comment: Order Added b y Discern Expert. Performed By: #### [id number] # ### MARCUS Microbiology Subsection [address] [place] [address]661 Neutro Auto 63.3 37.0-75.0 % Normal 02-21-2019 [facility] (77472) Comment: Order Comment: Order Added erma Aldana Expert. Performed By: #### [id number] # ### MARCUS Microbiology Subsection [address] [place] [address] ammonia on Ammonia (P) [Mass/Vol] 55 16-53 mcmol/L High 02-21- [facility] (00 000) Comment: Performed By: #### [id number] # ### MARCUS Microbiology Subsection [address] [place] [address] acetamnphn lvl on Acetaminoph Lvl <10 10-30 Normal 02-21-2019 [facility] (68646) Comment: Performed By: #### [id number] # ### MARCUS Microbiology Subsection [address] [place] [address] 57838 nm myocardial perfusion single - stress only on 2018-12-26 NM Nuclear Report Normal 12-26-2018 [facility] Patient: PABLO OSMAN ([id number]) SINGLE - Med Rec#: [id number] (Age): 1975(43y) STRESS ONLY Height: Study Date: [...] imaging protocol was followed using Tc-99m tetrofosmin ([employer]view) injected intravenously. For the stress portion of [...] on 2018-12-26 Nuclear Report 12-26-2018 [facility] (84103) Patient: PABLO OSMAN [facility] Rec#: [id number] (Age): 1975(43y ) Height: Study Date: 019 [...] RVPI Interface, Rad In [facility] X per [employer] - 12/26/2018 3:48 PM EDT Nuclear Report 12-26-2018 [facility] (13648) Patient: PABLO OSMAN [facility] Rec#: [id number] (Age): 1975(43y) Height: Study Date: 12/26/2018 Weight: [...] Chest 2 Views Exam Date/Time: Normal 019 [facility] 12/21/2018 04:05 EST [facility] Reason for Exam: (00 000) Cough Report STUDY: XR Chest 2 Views; 12/21/2018 4:05 am INDICATION: Cough. COMPARISON: 10/02/2018 ACCESSION NUMBER(S): [id number] ORDERING CLINICIAN: Bob Wick FINDINGS: No significant [...] Influenzae A Ag Negative Negative Normal 12-21-2018 [facility] (00 000) Comment: Result Comment: Test Perform ed by PCR Testing Performed By: #### [id number] #### MARCUS Urinalysis Automated [facility] bsection [address] [place] [address] Influenzae B Ag Negative Negative Normal 12-21-2018 [facility] (00 000) Comment: Result Comment: Test Perform ed by PCR Testing Performed By: #### [id number] #### MARCUS Urinalysis Automated [facility] bsection [address] [place] [address] ua complete on 2018 Color (U) Minerva Yellow Abnormal 12-12-2018 [facility] (12543) Comment: Performed By: #### [id number] # ### MARCUS RemChem [address] [place] [address] Glucose (U) [Mass/Vol] Negative Negative mg/dL Normal [address] [place] [address] Sys tem (48720) Comment: Performed By: #### [id number] # ### MARCUS RemChem [address] [place] [address] Ketones Ql (U) Trace Normal 12-12-2018 [facility] (52992) Comment: Performed By: #### [id number] # ### MARCUS RemChem [address] [place] [address] RBC (U) [#/Vol] 3-5 0-3 Abnormal 12-12-2018 [facility] (10331) Comment: Performed By: #### [id number] # ### MARCUS RemChem [address] [place] [address] UA Blood 2+ Negative Abnormal 12-12-2018 [facility] (50431) Comment: Performed By: #### [id number] # ### MARCUS RemChem [address] [place] [address] UA Clarity Cloudy Clear Abnormal 12-12-2018 [facility] (99704) Comment: Performed By: #### [id number] # ### MARCUS RemChem [address] [place] [address] UA Hyal Cast 5-10 0-2 Abnormal 12-12-2018 [facility] (23576) Comment: Performed By: #### [id number] # ### MARCUS RemChem [address] [place] [address] UA Leuk Est 3+ Negative Abnormal 12-12-2018 [facility] (30819) Comment: Performed By: #### [id number] # ### MARCUS RemChem [address] [place] [address] UA Nitrite Negative Negative Normal 12-12-2018 [facility] (35206) Comment: Performed By: #### [id number] # ### MARCUS RemChem [address] [place] [address] UA pH 5.0 4.6-8.0 Normal 12-12-2018 [facility] (99486) Comment: Performed By: #### [id number] # ### MARCUS RemChem [address] [place] [address] UA Protein Negative Negative Normal 12-12-2018 [facility] (10129) Comment: Performed By: #### [id number] # ### MARCUS RemChem [address] [place] [address] UA Spec Grav 1.020 1.003-1.030 Normal 12-12-2018 [facility] (36327) Comment: Performed By: #### [id number] # ### MARCUS RemChem [address] [place] [address] UA Squam Epithelial 20-30 0-5 Abnormal 12-12-2018 [facility] (54616) Comment: Performed By: #### [id number] # ### MARCUS RemChem [address] [place] [address] UA Urobilinogen 2.0 mg/dL Abnormal 12-12-2018 [facility] (70711) Comment: Result Comment: Due to a man ufacturing issue, low positive urobilinogen results may be fasely positi ve. Correlate with urine bilirubin and additional clinical/laborato ry findings to assess the risk of hemolytic anemia or liver disease. If clinically indicated, repeat testing with an alternate method is availabl e by contacting the laboratory within 24 hours. Performed By: #### [id number] # ### MARCUS RemChem [address] [place] [address] UA WBC 10-20 0-5 Abnormal 12-12-2018 [facility] (15623) Comment: Performed By: #### [id number] # ### MARCUS RemChem [address] [place] [address] Urobilinogen Qn (U) Negative Negative Normal 12-12-2018 [facility] (00 000) Comment: Performed By: #### [id number] # ### MARCUS RemChem [address] [place] [address] u drug screen on 06-12-24 U Amph Scr Negative Negative Normal 12-12-2018 [facility] (42091) Comment: Performed By: #### [id number] # ### MARCUS RemChem [address] [place] [address] U Kalyani Scr Negative Negative Normal 12-12-2018 [facility] (88586) Comment: Performed By: #### [id number] # ### MARCUS Rem[employer] [address] [place] [address] U Benzodia Scr Negative Negative Normal 12-12-2018 [facility] (92669) Comment: Performed By: #### [id number] # ### MARCUS RemChem [address] [place] [address] U Cannab Scr Negative Negative Normal 12-12-2018 [facility] (94865) Comment: Performed By: #### [id number] # ### MARCUS RemChem [address] [place] [address] U Cocaine Scr Negative Negative Normal 12-12-2018 [facility] (27573) Comment: Performed By: #### [id number] # ### MARCUS RemChem [address] [place] [address] U Opiate Scr Negative Negative Normal 12-12-2018 [facility] (01859) Comment: Performed By: #### [id number] # ### MARCSU RemChem [address] [place] [address] U PCP Scr Negative Negative Normal 12-12-2018 [facility] (76450) Comment: Performed By: #### [id number] # ### MARCUS JeriChem [facility] [place] [address] troponin-i on 12-12 Troponin I.cardiac .01 .00-.03 ng/mL Normal 12-12-2018 [facility] [Mass/Vol] Health [facility] (32812) Comment: Performed By: #### [id number] # ### MARCUS RemChem [address] [place] [address] magnesium on 12-12 Magnesium [Mass/Vol] 2.0 1.6-2.4 mg/dL Normal 9 [facility] (00 000) Comment: Performed By: #### [id number] # ### MARCUS RemChem [address] [place] [address] hep func panel on Albumin [Mass/Vol] 4.4 3.4-5.0 gm/dL Normal 12-12-2018 [facility] (00 000) Comment: Performed By: #### [id number] # ### MARCUS Rem[facility] [address] [place] [address] Albumin/Globulin [Mass 1.3 1.1-1.9 ratio Normal [facility]] Health Sys tem (12290) Comment: Performed By: #### [id number] # ### MARCUS RemChem [address] [place] [address] Alk Phos 69 33-110 Int._Unit/L Normal 12-12-2018 [facility] (84646) Comment: Performed By: #### [id number] # ### MARCUSShawn WilcoxChem [address] [place] [address] ALT [Catalytic 34 7-45 Int._Unit/L Normal 12-12-2018 [facility] activity/Vol Health System (43138) Comment: Performed By: #### [id number] # ### MARCUSShawn WilcoxChem [facility] [place] [address] AST [Catalytic 69 9-39 Int._Unit/L High 12-12-2018 [facility] activity/Vol] [facility] (80673) Comment: Performed By: #### [id number] # ### MARCUS JeriChem [facility] [place] [address] Bili Direct 0.26 0.00-0.30 mg/dL Normal 12-12-2018 [facility] (17981) Comment: Performed By: #### [id number] # ### MARCUS [address] [place] [address] Bili Indirect 0.57 mg/dL Normal 12-12-2018 [facility] (85857) Comment: Result Comment: No establish ed ranges available for the indirect bilirubin Performed By: #### [id number] # ### MARCUS [address] [address] Bili Total 0.83 0.00-1.20 mg/dL Normal 12-12-2018 [facility] (88728) Comment: Performed By: #### [id number] # ### MARCUS [address] [place] [address] Globulin (S) [Mass/Vol] 3.0 2.0-4.0 G/DL Normal 2018 [facility] (00 000) Comment: Performed By: #### [id number] # ### MARCUS [address] [place] [address] Protein [Mass/Vol] 7.7 6.4-8.2 gm/dL Normal 12-12-2018 [facility] (00 000) Comment: Performed By: #### [id number] # ### MARCUS Jeriedo [facility] [place] [address] ethanol on Ethanol [Mass/Vol] <10 <=10 mg/dL Normal 12-12-2018 [facility] (77614) Comment: Performed By: #### [id number] # ### MARCUS JeriChem [address] [place] [address] egfr on 2018-12-12 GFR/1.73 sq M predicted 42 mL/min/1.73 m2 Normal 0 12-12-2018 [facility] among non-blacks [facility] (00822) (S/P/Bld) [Vol rate/Area] Comment: Order Comment: With T4fr Ref kurt Performed By: #### [id number] # ### MARCUS Jeriedo [facility]5 [place] [address] GFR/1.73 sq M predicted 35 mL/min/1.73 m2 Normal 0 12-12-2018 [facility] among non-blacks [facility] (82321) (S/P/Bld) [Vol rate/Area] Comment: Order Comment: With T4fr Ref kurt Performed By: #### [id number] # ### MARCUS Remedo [facility] [place] [address] cbc w/ auto diff on 2018-12-12 Erythrocyte distribution 13.8 11.5-14.5 % Normal 12-12 [facility] width (RBC) [Ratio] Health System (13004) Comment: Performed By: #### [id number] # ### MARCUS Wilcoxedo [facility]5 [place] [address] Hematocrit (Bld) [Volume 44.1 36.0-48.0 % Normal 12-12 [facility] fraction] Health Sys tem (50588) Comment: Performed By: #### [id number] # ### MARCUS RemChem [address] [place] [address] Hemoglobin (Bld) 14.4 12.0-16.0 G/DL Normal 12-12-2018 [facility] [Mass/Vol] Health Sy [facility] (58998) Comment: Performed By: #### [id number] # ### MARCUS Remedo [address] [place] [address] MCH (RBC) [Entitic mass] 30.3 27.0-31.0 pg Normal 12-12 [facility] (00 000) Comment: Performed By: #### [id number] # ### MARCUS [address] [place] [address] MCHC (RBC) [Mass/Vol] 32.7 33.0-37.0 G/DL Low 12-12-19 [facility] (00 000) Comment: Performed By: #### [id number] # ### MARCUS [address] [place] [address] MCV (RBC) [Entitic vol] 92.9 78.0-100.0 fL Normal 12-12 [facility] Sys tem (53508) Comment: Performed By: #### [id number] # ### MARCUS [place] [place] [address] Platelet mean volume 8.1 7.4-11.0 fL Normal 9 [facility] (Bld) [Entitic vol] System (69627) Comment: Performed By: #### [id number] # ### MARCUS [address] [address] Platelets (Bld) [#/Vol] 122 130-400 E3/mcL Low 2018 [facility] (00 000) Comment: Performed By: #### [id number] # ### MARCUS [address] [address] RBC (Bld) [#/Vol] 4.75 3.90-5.40 E6/mcL Normal 12-12-2018 [facility] (00 000) Comment: Performed By: #### [id number] # ### MARCUS [address] [place] [address] WBC (Bld) [#/Vol] 6.2 3.6-11.0 E3/mcL Normal 12-12-2018 [facility] (00 000) Comment: Performed By: #### [id number] # ### MARCUS [address] [place] [address] bmp on 2018-12-12 Anion gap [Moles/Vol] 16 10-20 mEq/L Normal 12-12-19 [facility] (00 000) Comment: Performed By: #### [id number] # ### MARCUS [facility] [address] [place] [address] Calcium [Mass/Vol] 9.5 8.6-10.3 mg/dL Normal 12-12-2018 [facility] () Comment: Performed By: #### [id number] # ### MARCUS [facility] [address] [place] [address] Chloride [Moles/Vol] 105 98-107 mEq/L Normal 9 [facility] () Comment: Performed By: #### [id number] # ### MARCUS [employer] [address] [place] [address] CO2 [Moles/Vol] 20.0 21.0-32.0 mEq/L Low 12-12-2018 [facility] (31871) Comment: Performed By: #### [id number] # ### MARCUS [employer] [address] [place] [address] Creatinine [Mass/Vol] 1.6 0.5-1.1 mg/dL High 12-12-19 19 [facility] () Comment: Performed By: #### [id number] # ### MARCUS [employer] [address] [place] [address] Glucose [Mass/Vol] 150 70-99 mg/dL High 12-12-2018 [facility] (86172) Comment: Performed By: #### [id number] # ### MARCUS [employer] [address] [place] [address] Potassium [Moles/Vol] 4.4 3.5-5.3 mEq/L Normal 12-12-19 19 [facility] (00 000) Comment: Performed By: #### [id number] # ### MARCUS [employer] [address] [place] [address] Sodium [Moles/Vol] 137 136-145 mEq/L Normal 12-12-2018 [facility] () Comment: Performed By: #### [id number] # ### MARCUS [employer] [address] [place] [address] Urea nitrogen [Mass/Vol] 27 6-23 mg/dL High 12-12 [facility] (00 000) Comment: Performed By: #### [id number] # ### MARCUS Wilcoxedo [address] [place] [address] Urea nitrogen/Creatinine 16.9 5.4-30.0 ratio Normal 12-12 [facility] [Mass ratio] [facility] (78971) Comment: Performed By: #### [id number] # ### MARCUS Wilcoxedo [address] [place] [address] auto diff on 12-12 Basophils (Bld) [#/Vol] 0.0 0.0-0.2 E3/mcL Normal 2018 [facility] (09397) Comment: Order Comment: With T4fr Ref kurt Performed By: #### [id number] # ### MARCUS Wilcoxedo [facility] [place] [address] Basophils/100 WBC (Bld) 0.4 0.0-2.0 % Normal 2018 [facility] (00 000) Comment: Order Comment: With T4fr Ref kurt Performed By: #### [id number] # ### MARCUS Wilcoxedo [address] [place] [address] Eos Absolute 0.0 0.0-0.7 E3/mcL Normal 12-12-2018 [facility] (99692) Comment: Order Comment: With T4fr Ref kurt Performed By: #### [id number] # ### MARCUS Wilcoxedo [facility]5 [place] [address] Eosinophils/100 WBC (Bld) 0.1 0.0-11.0 % Normal 11-19 [facility] (00 000) Comment: Order Comment: With T4fr Ref kurt Performed By: #### [id number] # ### MARCUS Wilcoxedo [facility]5 [place] [address] Lymphocytes (Bld) [#/Vol] 0.6 1.2-3.4 E3/mcL Low 11-19 [facility] (00 000) Comment: Order Comment: With T4fr Ref kurt Performed By: #### [id number] # ### MARCUS [employer] [facility] [place] [address] Lymphocytes/100 WBC (Bld) 9.6 20.0-55.0 % Low 11-19 [facility] (00 000) Comment: Order Comment: With T4fr Ref kurt Performed By: #### [id number] # ### MARCUS [facility]iChem [address] [place] [address] Ross Absolute 0.6 0.0-0.7 E3/mcL Normal 12-12-2018 [facility] (70052) Comment: Order Comment: With T4fr Ref kurt Performed By: #### [id number] # ### MARCUS JeriChem [facility]5 [place] [address] Monocytes/100 WBC (Bld) 9.4 0.0-10.0 % Normal 2018 [facility] (00 000) Comment: Order Comment: With T4fr Ref kurt Performed By: #### [id number] # ### MARCUS [employer]iChem [address] [place] [address] Neutro Absolute 5.0 1.4-6.5 E3/mcL Normal 12-12-2018 [facility] (65291) Comment: Order Comment: With T4fr Ref kurt Performed By: #### [id number] # ### MARCUS [employer] [address] [place] [address] Neutro Auto 80.5 37.0-75.0 % High 12-12-2018 [facility] (85272) Comment: Order Comment: With T4fr Ref kurt Performed By: #### [id number] # ### MARCUS [employer] [address] [place] [address] ua complete on 2018 Color (U) Yellow Yellow Normal 12-03-2018 [facility] (72135) Comment: Performed By: #### [id number] #### MARCUS RemChem [facility]5 [place] [address] Glucose (U) [Mass/Vol] Negative Negative mg/dL Normal 019 [facility] (83777) Comment: Performed By: #### [id number] #### MARCUS [facility] [address] [place] [address] Ketones Ql (U) Negative Negative Normal 12-03-2018 [facility] (82220) Comment: Performed By: #### [id number] #### MARCUS WilcoxChem [address] [place] [address] RBC (U) [#/Vol] 3-5 0-3 Abnormal 12-03-2018 [facility] (82954) Comment: Performed By: #### [id number] #### MARCUSShawn WilcoxChem [address] [place] [address] UA Blood Negative Negative Normal 12-03-2018 [facility] (19047) Comment: Performed By: #### [id number] #### MARCUSShawn WilcoxChem [address] [place] [address] UA Bacteria 1+ None /HPF Abnormal 12-03-2018 [facility] (45981) Comment: Performed By: #### [id number] #### MARCUSShawn WilcoxChem [address] [place] [address] UA Clarity SltCloudy Clear Abnormal 12-03-2018 [facility] (52589) Comment: Performed By: #### [id number] #### MARCUSShawn WilcoxChem [address] [place] [address] UA Leuk Est Trace Negative Normal 12-03-2018 [facility] (21661) Comment: Performed By: #### [id number] #### MARCUS [employer] [address] [place] [address] UA Nitrite Negative Negative Normal 12-03-2018 [facility] (41700) Comment: Performed By: #### [id number] #### MARCUSShawn WilcoxChem [address] [place] [address] UA pH 6.0 4.6-8.0 Normal 12-03-2018 [facility] (26878) Comment: Performed By: #### [id number] #### MARCUS [employer] [address] [place] [address] UA Protein Negative Negative Normal 12-03-2018 [facility] (67135) Comment: Performed By: #### [id number] #### MARCUS [employer] [address] [place] [address] UA Spec Grav 1.016 1.003-1.030 Normal 12-03-2018 [facility] (24048) Comment: Performed By: #### [id number] #### MARCUS [employer] [address] [place] [address] UA Squam Epithelial 10-20 0-5 Abnormal 12-03-2018 [facility] (60240) Comment: Performed By: #### [id number] #### MARCUS Zelaya [facility]5 [place] [address] UA Urobilinogen Negative Normal 12-03-2018 [facility] (93837) Comment: Result Comment: Due to a man ufacturing issue, low positive urobilinogen results may be fasely positi ve. Correlate with urine bilirubin and additional clinical/laborato ry findings to assess the risk of hemolytic anemia or liver disease. If clinically indicated, repeat testing with an alternate method is availabl e by contacting the laboratory within 24 hours. Performed By: #### [id number] #### MARCUS Wilcoxedo [facility]5 [place] [address] UA WBC 5-10 0-5 Abnormal 12-03-2018 [facility] (18407) Comment: Performed By: #### [id number] #### MARCUS Wilcoxedo [facility] [place] [address] Urobilinogen Qn (U) Negative Negative Normal 12-03-2018 [facility] (00 000) Comment: Performed By: #### [id number] #### MARCUS Wilcoxedo [address] [place] [address] u bhcg qlt on 12-03 HCG.beta subunit Qn Neg Neg m[IU]/mL Normal 12-03-2018 [facility] (00 000) Comment: Performed By: #### [id number] #### MARCUSShawn Wilcoxedo [facility]5 [place] [address] lipase level on 201 06-19-16 Lipase Lvl 38 9-82 Int._Unit/L Normal 12-03-2018 [facility] (22345) Comment: Performed By: #### [id number] #### MARCUS Wilcoxedo [facility] [place] [address] egfr on 2018-12-03 GFR/1.73 sq M predicted 56 mL/min/1.73 m2 Normal 0 12-03-2018 [facility] among non-blacks [facility] (93558) (S/P/Bld) [Vol rate/Area] Comment: Order Comment: Order added erma Aldana Expert. Performed By: #### [id number] #### MARCUS Remedo [address] [place] [address] GFR/1.73 sq M predicted 46 mL/min/1.73 m2 Normal 0 12-03-2018 [facility] among non-blacks [facility] (69735) (S/P/Bld) [Vol rate/Area] Comment: Order Comment: Order added erma Aldana Expert. Performed By: #### [id number] #### MARCUS Remedo [address] [place] [address] ct abdomen/pelvis w/o contrast on 2018-12-03 CT Abdomen/Pelvis w/o Exam Date/Time: Normal Sikh Contrast 12/03/2018 00:08 EST [facility] Reason for Exam: Sys tem (63056) Pain Report STUDY: CT Abdomen/Pelvis w/o Contrast; 12/03/2018 12:08 am INDICATION: Pain. COMPARISON: 09/22/2018 ACCESSION NUMBER(S): [id number] ORDERING CLINICIAN: Heidy Lane TECHNIQUE: Axial noncontrast [...] Albumin [Mass/Vol] 3.6 3.4-5.0 gm/dL Normal 12-03-2018 [facility] (00 000) Comment: Performed By: #### [id number] #### MARCUS [facility] [address] [place] [address] Albumin/Globulin [Mass 1.5 1.1-1.9 ratio Normal [address] [place] [address] [facility] tem (47775) Comment: Performed By: #### [id number] #### MARCUS [facility] [address] [place] [address] Alk Phos 69 33-110 Int._Unit/L Normal 12-03-2018 [facility] (27848) Comment: Performed By: #### [id number] #### MARCUS [employer] [address] [place] [address] ALT [Catalytic 13 7-45 Int._Unit/L Normal 12-03-2018 [facility] (77360[facility] Comment: Performed By: #### [id number] #### MARCUS [employer] [address] [place] [address] Anion gap [Moles/Vol] 12 10-20 mEq/L Normal 12-03-19 19 [facility] (00 000) Comment: Performed By: #### [id number] #### MARCUS [employer] [address] [place] [address] AST [Catalytic 19 9-39 Int._Unit/L Normal 12-03-2018 [facility] (61929) Comment: Performed By: #### [id number] #### MARCUS [facility] [address] [place] [address] Bili Total 0.35 0.00-1.20 mg/dL Normal 12-03-2018 [facility] (14636) Comment: Performed By: #### [id number] #### MARCUS [employer] [address] [place] [address] Calcium [Mass/Vol] 8.3 8.6-10.3 mg/dL Low 12-03-2018 [facility] (54759) Comment: Performed By: #### [id number] #### MARCUS [facility] [address] [place] [address] Chloride [Moles/Vol] 110 98-107 mEq/L High [facility] () Comment: Performed By: #### [id number] #### MARCUS [facility] [address] [place] [address] CO2 [Moles/Vol] 22.0 21.0-32.0 mEq/L Normal 12-03-2018 [facility] () Comment: Performed By: #### [id number] #### MARCUS [employer] [address] [place] [address] Creatinine [Mass/Vol] 1.3 0.5-1.1 mg/dL High 12-03-19 [facility] (00 000) Comment: Performed By: #### [id number] #### MARCUS [facility] [address] [place] [address] Globulin (S) [Mass/Vol] 2.0 2.0-4.0 G/DL Normal 2018 [facility] ( 000) Comment: Performed By: #### [id number] #### MARCUS [facility] [address] [place] [address] Glucose [Mass/Vol] 133 70-99 mg/dL High 12-03-2018 [facility] (92021) Comment: Performed By: #### [id number] #### MARCUS [facility] [address] [place] [address] Potassium [Moles/Vol] 4.2 3.5-5.3 mEq/L Normal 12-03-19 [facility] (00 000) Comment: Performed By: #### [id number] #### MARCUS [facility] [address] [place] [address] Protein [Mass/Vol] 6.0 6.4-8.2 gm/dL Low 12-03-2018 [facility] (25485) Comment: Performed By: #### [id number] #### MARCUS Jeriedo [facility] [place] [address] Sodium [Moles/Vol] 140 136-145 mEq/L Normal 12-03-2018 [facility] (00 000) Comment: Performed By: #### [id number] #### MARCUS [address] [place] [address] Urea nitrogen [Mass/Vol] 9 6-23 mg/dL Normal 12-03 [facility] (00 000) Comment: Performed By: #### [id number] #### MARCUS [address] [place] [address] Urea nitrogen/Creatinine 6.9 5.4-30.0 ratio Normal 12-03 [facility] [Mass ratio] [facility] (77612) Comment: Performed By: #### [id number] #### MARCUS [address] [address] cbc w/ auto diff on 2018-12-03 Erythrocyte distribution 12.9 11.5-14.5 % Normal 12-03 [facility] width (RBC) [Ratio] Health System (48093) Comment: Performed By: #### [id number] #### MARCUS [address] [address] Hematocrit (Bld) [Volume 42.4 36.0-48.0 % Normal 12-03 [facility] fraction] Health Sys tem (09465) Comment: Performed By: #### [id number] #### MARCUSShawn [address] [place] [address] Hemoglobin (Bld) 14.1 12.0-16.0 G/DL Normal 12-03-2018 [facility] [Mass/Vol] Health Sy stem (88252) Comment: Performed By: #### [id number] #### MARCUS [address] [place] [address] MCH (RBC) [Entitic mass] 30.5 27.0-31.0 pg Normal 12-03 [facility] (00 000) Comment: Performed By: #### [id number] #### MARCUS Zelaya [facility]5 [place] [address] MCHC (RBC) [Mass/Vol] 33.3 33.0-37.0 G/DL Normal 12-03-19 19 [facility] (00 000) Comment: Performed By: #### [id number] #### MARCUS Zelaya [address] [place] [address] MCV (RBC) [Entitic vol] 91.5 78.0-100.0 fL Normal 12-03 [facility] tem (87889) Comment: Performed By: #### [id number] #### MARCUS Zelaya [facility]5 [place] [address] Platelet mean volume (Bld) 7.2 7.4-11.0 fL Low [facility] [Entitic vol] System (88345) Comment: Performed By: #### [id number] #### MARCUS [address] [address] Platelets (Bld) [#/Vol] 121 130-400 E3/mcL Low 2018 [facility] (00 000) Comment: Performed By: #### [id number] #### MARCUS [address] [address] RBC (Bld) [#/Vol] 4.64 3.90-5.40 E6/mcL Normal 12-03-2018 [facility] (00 000) Comment: Performed By: #### [id number] #### MARCUS [address] [place] [address] WBC (Bld) [#/Vol] 4.5 3.6-11.0 E3/mcL Normal 12-03-2018 [facility] (00 000) Comment: Performed By: #### [id number] #### MARCUS Zelaya [facility] [place] [address] auto diff on 2019-0 2-16 Basophils (Bld) [#/Vol] 0.0 0.0-0.2 E3/mcL Normal 2018 [facility] (17677) Comment: Order Comment: Order added b y Discern Expert. Performed By: #### [id number] #### MARCUS Wilcoxedo [facility]5 [place] [address] Basophils/100 WBC (Bld) 0.6 0.0-2.0 % Normal 2018 [facility] (00 000) Comment: Order Comment: Order added b y Discern Expert. Performed By: #### [id number] #### MARCUS Jeriedo [address] [place] [address] Eos Absolute 0.1 0.0-0.7 E3/mcL Normal 12-03-2018 [facility] (83484) Comment: Order Comment: Order added b y Discern Expert. Performed By: #### [id number] #### [facility] Jeriedo [address] [place] [address] Eosinophils/100 WBC (Bld) 2.6 0.0-11.0 % Normal 11-18 [facility] (00 000) Comment: Order Comment: Order added b y Discern Expert. Performed By: #### [id number] #### [facility] [employer] [address] [place] [address] Lymphocytes (Bld) [#/Vol] 1.2 1.2-3.4 E3/mcL Normal 11-18 [facility] tem (98896) Comment: Order Comment: Order added b y Discern Expert. Performed By: #### [id number] #### MARCUS Wilcoxedo [address] [place] [address] Lymphocytes/100 WBC (Bld) 27.2 20.0-55.0 % Normal 11-[address] [facility] (53417) Comment: Order Comment: Order added b y Discern Expert. Performed By: #### [id number] #### [facility] [employer] [address] [place] [address] Ross Absolute 0.3 0.0-0.7 E3/mcL Normal 12-03-2018 [facility] (34689) Comment: Order Comment: Order added b y Discern Expert. Performed By: #### [id number] #### MARCUS [employer] [facility] [place] [address] Monocytes/100 WBC (Bld) 7.7 0.0-10.0 % Normal 2018 [facility] (00 000) Comment: Order Comment: Order added erma Aldana Expert. Performed By: #### [id number] #### MARCUS WilcoxChem [address] [place] [id number] Neutro Absolute 2.8 1.4-6.5 E3/mcL Normal 12-03-2018 [facility] (49398) Comment: Order Comment: Order added erma Aldana Expert. Performed By: #### [id number] #### MARCUS Zelaya [address] [place] [id number] Neutro Auto 61.9 37.0-75.0 % Normal 12-03-2018 [facility] (09329) Comment: Order Comment: Order added erma Aldana Expert. Performed By: #### [id number] #### MARCUS Zelaya [address] [place] [address] ct head or brain w/ + w/o contrast on 2018-12-01 CT Head or Brain Exam Date/Time: Normal 019 [facility] w/ + w/o Contrast 12/01/2018 12:05 [facility] Reason for Exam: (00 000) ABN GAIT Report STUDY: CT Head or Brain w/ + w/o Contrast; 12/01/2018 12:05 pm INDICATION: ABN GAIT. COMPARISON: 04/29/2016 ACCESSION NUMBER(S): [id number] ORDERING CLINICIAN: Ana Hodge TECHNIQUE: Axial images [...] Ag IA Final Report: Normal 11-27-19 19 [facility] (Unsp spec) [facility] screen negative (000 00) Comment: Performed By: #### [id number] #### MRACUS [employer] [address] [place] [address] lipid panel on 2018 Cholesterol in HDL mass 43 40-59 mg/dL Normal 2018 [facility] (99600) Comment: Performed By: #### GLUX #### Unless otherwise noted, [facility] [address] [facility] [place] [address] CLIA: [id number] Molding Supervisor: Ismael vines M.D. Cholesterol in LDL mass 163 10-150 mg/dL High 2018 [facility] (17516) Comment: Performed By: #### GLUX #### Unless otherwise noted, all testing performed by [facility] [address] [facility] [place] [address] CLIA: [id number] Molding Supervisor: Ismael vines M.D. Cholesterol in VLDL mass 41 5-40 mg/dL High 11-22 [facility] (25434) Comment: Performed By: #### GLUX #### Unless otherwise noted, all testing performed by [facility] l [address] [place] [address] CLIA: [id number] Molding Supervisor: Ismael vines M.D. Cholesterol mass conc 247 100-199 mg/dL High 11-22-19 19 [facility] (12273) Comment: Performed By: #### GLUX #### Unless otherwise noted, all testing performed by [facility] l [address] [facility]. [place] [address] CLIA: [id number] Molding Supervisor: Ismael vines M.D. Cholesterol.total/Cholesterol in HDL 5.7 3.2-5.0 Hig h 11-22-2018 [facility] mass [facility] (69039) Comment: Result Comment: Female Coron xavier Heart Disease Risk Factor (CHDRF): Average risk= 4.4 1/2 Average risk= 3.3 2 times Average risk= 7.1 Performed By: #### GLUX #### Unless otherwise noted, all testing performed by [facility] [address] [facility]. [place] [address] CLIA: [id number] Molding Supervisor: Ismael vines M.D. Triglyceride mass conc 206 30-150 mg/dL High 019 [facility] (50290) Comment: Performed By: #### GLUX #### Unless otherwise noted, all testing performed by [address] [place] [address] CLIA: [id number] Molding Supervisor: Ismael vines M.D. No panel information on 2018-11-22 Cholesterol in HDL mass conc 43 40 - 59 mg/dL 0 11-22-2018 [facility] (34139) Cholesterol in LDL mass conc 163 10 - 150 mg/dL High 0 11-22-2018 [facility] (49402) Cholesterol in VLDL mass conc 41 5 - 40 mg/dL High 11-22-2018 [facility] (00498) Cholesterol mass conc 247 100 - 199 mg/dL High 11-22-19 19 [facility] (97765) Cholesterol.total/Cholesterol 5.7 OTH - OTH High 11-22-2018 [facility] (30729) in HDL mass ratio Comment: Female Coronary Heart Diseas e Risk Factor (CHDRF): Average risk= 4.4 1/2 Average risk= 3.3 2 times Average risk= 7.1 Interpretation and review Abnormal [facility] (95162) of laboratory results Triglyceride mass conc 206 30 - 150 mg/dL High 019 [facility] (83200) zzplt morph on 2018 Platelet morphology finding ENLARGED Normal [facility] Nom (d) System (00 000) Comment: Performed By: #### [id number] # ### MARCUS [facility] [address] [place] [address] Platelets (Bld) [#/Vol] DECREASED Normal 2018 [facility] (00 000) Comment: Performed By: #### [id number] # ### MARCUS [facility] [address] [place] [address] ua complete on 2018 Color (U) Straw Yellow Normal 11-17-2018 [facility] (12960) Comment: Performed By: #### [id number] # ### MARCUS [facility] [address] [place] [address] Glucose (U) [Mass/Vol] Negative Negative mg/dL Normal 019 [facility] Sys tem (96003) Comment: Performed By: #### [id number] # ### MARCUS [facility] [address] [place] [address] Ketones Ql (U) Negative Negative Normal 11-17-2018 [facility] (28141) Comment: Performed By: #### [id number] # ### MARCUS Rem[employer] [address] [place] [address] UA Blood Negative Negative Normal 11-17-2018 [facility] (30741) Comment: Performed By: #### [id number] # ### MARCUS [facility] [address] [place] [address] UA Clarity Clear Clear Normal 11-17-2018 [facility] (56632) Comment: Performed By: #### [id number] # ### MARCUS [employer] [address] [place] [address] UA Leuk Est Negative Negative Normal 11-17-2018 [facility] (38165) Comment: Performed By: #### [id number] # ### MARCUS [employer] [address] [place] [address] UA Nitrite Negative Negative Normal 11-17-2018 [facility] (29955) Comment: Performed By: #### [id number] # ### MARCUS WilcoxChem [address] [place] [address] UA pH 6.0 4.6-8.0 Normal 11-17-2018 [facility] (65373) Comment: Performed By: #### [id number] # ### MARCUS [facility] [address] [place] [address] UA Protein Negative Negative Normal 11-17-2018 [facility] (81295) Comment: Performed By: #### [id number] # ### MARCUS [facility] [address] [place] [address] UA Spec Grav 1.009 1.003-1.030 Normal 11-17-2018 [facility] (47769) Comment: Performed By: #### [id number] # ### MARCUS RemChem [facility] [place] [address] UA Squam Epithelial 0-5 0-5 Normal 11-17-2018 [facility] (46217) Comment: Performed By: #### [id number] # ### MARCUS [facility] [address] [place] [address] UA Urobilinogen Negative Normal 11-17-2018 [facility] [facility] (16338) Comment: Result Comment: Due to a man ufacturing issue, low positive urobilinogen results may be fasely positi ve. Correlate with urine bilirubin and additional clinical/laborato ry findings to assess the risk of hemolytic anemia or liver disease. If clinically indicated, repeat testing with an alternate method is availabl e by contacting the laboratory within 24 hours. Performed By: #### [id number] # ### MARCUS Rem[employer] [address] [place] [address] UA WBC 0-5 0-5 Normal 11-17-2018 [facility] (66887) Comment: Performed By: #### [id number] # ### MARCUS RemChem [address] [place] [address] Urobilinogen Qn (U) Negative Negative Normal 11-17-2018 [facility] (00 000) Comment: Performed By: #### [id number] # ### MARCUS Zelaya [address] [place] [address] u bhcg qlt on 11-17 HCG.beta subunit Qn Neg Neg m[IU]/mL Normal 11-17-2018 [facility] (00 000) Comment: Performed By: #### [id number] # ### MARCUS Zelaya [facility] [place] [address] morph on 2018-11-17 RBC morphology finding Nom NORMAL Normal [facility] (Bld) System (00 000) Comment: Order Comment: Order Added b y Discern Expert. Performed By: #### [id number] # ### MARCUS Zelaya [facility]5 [place] [address] lipase level on 201 06-18-31 Lipase Lvl 48 9-82 Int._Unit/L Normal 11-17-2018 [facility] (16326) Comment: Performed By: #### [id number] # ### MARCUS [address] [address] hep func panel on 2 Albumin [Mass/Vol] 3.8 3.4-5.0 gm/dL Normal 11-17-2018 [facility] (00 000) Comment: Performed By: #### [id number] # ### MARCUS [address] [place] [address] Albumin/Globulin [Mass 1.8 1.1-1.9 ratio Normal [address] [place] [address]] Health Sys tem (50147) Comment: Performed By: #### [id number] # ### MARCUS Nathalie [facility] [place] [address] Alk Phos 59 33-110 Int._Unit/L Normal 11-17-2018 [facility] (39808) Comment: Performed By: #### [id number] # ### MARCUS [employer] [address] [place] [address] ALT [Catalytic 18 7-45 Int._Unit/L Normal 11-17-2018 [facility] activity/Vol] Health System (72969) Comment: Performed By: #### [id number] # ### MARCUSShawn WilcoxChem [address] [place] [address] AST [Catalytic 28 9-39 Int._Unit/L Normal 11-17-2018 [facility] activity/[facility] (85692) Comment: Performed By: #### [id number] # ### MARCUS [address] [place] [address] Bili Direct 0.07 0.00-0.30 mg/dL Normal 11-17-2018 [facility] (43165) Comment: Performed By: #### [id number] # ### MARCUS Zelaya [facility] [place] [address] Bili Indirect 0.38 mg/dL Normal 11-17-2018 [facility] (43224) Comment: Result Comment: No establish ed ranges available for the indirect bilirubin Performed By: #### [id number] # ### MARCUSShawn Zelaya [address] [place] [address] Bili Total 0.45 0.00-1.20 mg/dL Normal 11-17-2018 [facility] (54278) Comment: Performed By: #### [id number] # ### MARCUSShawn Zelaya [address] [place] [address] Globulin (S) [Mass/Vol] 2.0 2.0-4.0 G/DL Normal 2018 [facility] (00 000) Comment: Performed By: #### [id number] # ### MARCUSShawn [address] [address] Protein [Mass/Vol] 5.9 6.4-8.2 gm/dL Low 11-17-2018 [facility] (53227) Comment: Performed By: #### [id number] # ### [facility] [address] [place] [address] egfr on 2018-11-17 GFR/1.73 sq M predicted 56 mL/min/1.73 m2 Normal 0 11-17-2018 [facility] among non-blacks MDRD [facility] (64725) (S/P/Bld) [Vol rate/Area] Comment: Order Comment: Order added b y Discern Expert. Performed By: #### [id number] # ### MARCUSShawn [address] [place] [address] GFR/1.73 sq M predicted 46 mL/min/1.73 m2 Normal 0 11-17-2018 [facility] among non-blacks [facility] (98552) (S/P/Bld) [Vol rate/Area] Comment: Order Comment: Order added b y Discern Expert. Performed By: #### [id number] # ### MARCUSShawn Zelaya [address] [place] [address] cbc w/ auto diff on 2018-11-17 Erythrocyte distribution 13.2 11.5-14.5 % Normal 11-17 [facility] width (RBC) [Ratio] Health System (17383) Comment: Performed By: #### [id number] # ### MARCUS JeriChem [facility] [place] [address] Hematocrit (Bld) [Volume 41.0 36.0-48.0 % Normal 11-17 [facility] fraction] Health Sys tem (17647) Comment: Performed By: #### [id number] # ### MARCUS JeriChem [facility] [place] [address] Hemoglobin (Bld) 13.8 12.0-16.0 G/DL Normal 11-17-2018 [facility] [Mass/Vol] Health Sy stem (10650) Comment: Performed By: #### [id number] # ### MARCUS [employer] [address] [place] [address] MCH (RBC) [Entitic mass] 30.9 27.0-31.0 pg Normal 11-17 [facility] (00 000) Comment: Performed By: #### [id number] # ### MARCUS [employer] [address] [place] [address] MCHC (RBC) [Mass/Vol] 33.6 33.0-37.0 G/DL Normal 11-17-19 19 [facility] (00 000) Comment: Performed By: #### [id number] # ### MARCUS [employer] [address] [place] [address] MCV (RBC) [Entitic vol] 91.9 78.0-100.0 fL Normal 11-17 [facility] Sys tem (53031) Comment: Performed By: #### [id number] # ### MARCUS [employer] [address] [place] [address] Platelet mean volume 7.6 7.4-11.0 fL Normal 9 [facility] (Bld) [Entitic vol] System (59585) Comment: Performed By: #### [id number] # ### MARCUS [employer] [address] [place] [address] Platelets (Bld) [#/Vol] 82 130-400 E3/mcL Low 2018 [facility] (00 000) Comment: Performed By: #### [id number] # ### MARCUS Jeriedo [facility]5 [place] [address] RBC (Bld) [#/Vol] 4.46 3.90-5.40 E6/mcL Normal 11-17-2018 [facility] ( 000) Comment: Performed By: #### [id number] # ### MARCUS Wilcoxedo [facility] [place] [address] WBC (Bld) [#/Vol] 4.2 3.6-11.0 E3/mcL Normal 11-17-2018 [facility] ( 000) Comment: Performed By: #### [id number] # ### MARCUS Jeriedo [facility] [place] [address] bmp on 2018-11-17 Anion gap [Moles/Vol] 11 10-20 mEq/L Normal 11-17-19 19 [facility] ( 000) Comment: Performed By: #### [id number] # ### MARCUS Wilcoxedo [address] [place] [address] Calcium [Mass/Vol] 8.7 8.6-10.3 mg/dL Normal 11-17-2018 [facility] ( 000) Comment: Performed By: #### [id number] # ### MARCUS Jeriedo [address] [place] [address] Chloride [Moles/Vol] 108 98-107 mEq/L High 9 [facility] ( 000) Comment: Performed By: #### [id number] # ### MARCUS Remedo [address] [place] [address] CO2 [Moles/Vol] 21.0 21.0-32.0 mEq/L Normal 11-17-2018 [facility] (00 000) Comment: Performed By: #### [id number] # ### MARCUS [employer] [address] [place] [address] Creatinine [Mass/Vol] 1.2 0.5-1.1 mg/dL High 11-17-19 19 [facility] (00 000) Comment: Performed By: #### [id number] # ### MARCUS [employer] [address] [place] [address] Glucose [Mass/Vol] 103 70-99 mg/dL High 11-17-2018 [facility] (26085) Comment: Performed By: #### [id number] # ### MARCUS [employer] [address] [place] [address] Potassium [Moles/Vol] 3.7 3.5-5.3 mEq/L Normal 11-17-19 19 [facility] (00 000) Comment: Performed By: #### [id number] # ### MARCUS JeriChem [facility] [place] [address] Sodium [Moles/Vol] 136 136-145 mEq/L Normal 11-17-2018 [facility] (00 000) Comment: Performed By: #### [id number] # ### MARCUS [employer] [address] [place] [address] Urea nitrogen [Mass/Vol] 15 6-23 mg/dL Normal 11-17 [facility] (00 000) Comment: Performed By: #### [id number] # ### MARCUS [employer] [address] [place] [address] Urea nitrogen/Creatinine 12.5 5.4-30.0 ratio Normal 11-17 [facility] [Mass ratio] [facility] (55533) Comment: Performed By: #### [id number] # ### MARCUS [employer] [address] [place] [address] auto diff on 11-17 Basophils (Bld) [#/Vol] 0.0 0.0-0.2 E3/mcL Normal 2018 [facility] Sys tem (77758) Comment: Order Comment: Order Added b y Discern Expert. Performed By: #### [id number] # ### MARCUS WilcoxChem [address] [place] [address] Basophils/100 WBC (Bld) 0.3 0.0-2.0 % Normal 2018 [facility] (00 000) Comment: Order Comment: Order Added erma Aldana Expert. Performed By: #### [id number] # ### MARCUS WilcoxChem [address] [place] [address] Eos Absolute 0.1 0.0-0.7 E3/mcL Normal 11-17-2018 [facility] (62318) Comment: Order Comment: Order Added b y Discern Expert. Performed By: #### [id number] # ### MARCUS [employer] [address] [place] [address] Eosinophils/100 WBC (Bld) 2.4 0.0-11.0 % Normal 10-20 [facility] (00 000) Comment: Order Comment: Order Added erma Aldana Expert. Performed By: #### [id number] # ### MARCUS Jeriedo [address] [place] [address] Lymphocytes (Bld) [#/Vol] 1.2 1.2-3.4 E3/mcL Normal 10-20 [facility] tem (34751) Comment: Order Comment: Order Added erma Aldana Expert. Performed By: #### [id number] # ### MARCUS WilcoxChem [address] [place] [address] Lymphocytes/100 WBC (Bld) 27.6 20.0-55.0 % Normal 10-[address] [facility] (92114) Comment: Order Comment: Order Added erma lizama Discern Expert. Performed By: #### [id number] # ### MARCUS Rem[employer] [address] [place] [address] Ross Absolute 0.4 0.0-0.7 E3/mcL Normal 11-17-2018 [facility] (28694) Comment: Order Comment: Order Added b y Discern Expert. Performed By: #### [id number] # ### MARCUS Rem[employer] [address] [place] [address] Monocytes/100 WBC (Bld) 8.8 0.0-10.0 % Normal 2018 [facility] (00 000) Comment: Order Comment: Order Added erma Aldana Expert. Performed By: #### [id number] # ### MARCUS Zelaya [facility] [place] [id number] Neutro Absolute 2.5 1.4-6.5 E3/mcL Normal 11-17-2018 [facility] (40749) Comment: Order Comment: Order Added erma Aldana Expert. Performed By: #### [id number] # ### MARCUS Zelaya [address] [place] [address] Neutro Auto 60.4 37.0-75.0 % Normal 11-17-2018 [facility] (11009) Comment: Order Comment: Order Added erma Aldana Expert. Performed By: #### [id number] # ### MARCUS [place] [id number] lab miscellaneous o n 2018-10-28 Status See Ref Lab Report Normal 10-28-2018 [facility] (71557) Comment: Performed By: #### [id number] # ### MARCUS Kostascorky [address] [place], [place] [address] zzplt morph on 2018 Platelet morphology finding NORMAL Normal [facility] (00 000) Comment: Performed By: #### [id number] # ### MARCUS Kenyoncorky [facility] [place] [id number] Platelets (d) [#/Vol] DECREASED Normal 2018 [facility] (00 000) Comment: Performed By: #### [id number] # ### MARCUS Kostascorky [address] [place], [place] [address] valproic acid on 05-11-08 Valpro Acid Lvl 91 50-100 microgram/mL Normal 10-26-2018 [facility] (00 000) Comment: Performed By: #### [id number] # ### MARCUS Kostaso [address] [place], [place] [address] manual diff on 2018 Band form neutrophils/100 WBC 1 0-1 Normal 10-26-2018 [facility] (d) System (00 000) Comment: Order Comment: Order Added erma Aldana Expert. Performed By: #### [id number] # ### MARCUS WilcoxHemo [address] [place] [address] Basophil Man 0 0-1 % Normal 10-26-2018 [facility] (25202) Comment: Order Comment: Order Added b dl Discern Expert. Performed By: #### [id number] # ### MARCUS WilcoxHemo [address] [place] [address] Eosinophils/100 WBC (Bld) 3 0-5 % Normal [facility] (91110) Comment: Order Comment: Order Added b y Discern Expert. Performed By: #### [id number] # ### MARCUS WilcoxHemo [address] [place] [address] Lymphocytes/100 WBC (Bld) 37 14-48 % Normal [facility] (00 000) Comment: Order Comment: Order Added b y Discern Expert. Performed By: #### [id number] # ### MARCUS JeriHemo [address] [place] [address] Monocyte Man 8 1-11 % Normal 10-26-2018 [facility] (29883) Comment: Order Comment: Order Added b y Discern Expert. Performed By: #### [id number] # ### MARCUS JeriHemo [address] [place] [address] RBC morphology finding Nom NORMAL Normal [facility] ([facility]) System (00 000) Comment: Order Comment: Order Added b y Discern Expert. Performed By: #### [id number] # ### MARCUS JeriHemo [address] [place] [address] Segs Man 51 37-75 % Normal 10-26-2018 [facility] (55838) Comment: Order Comment: Order Added b y Discern Expert. Performed By: #### [id number] # ### MARCUS JeriHemo [address] [place] [address] lab miscellaneous o n 2018-10-26 Test Name topamax Normal 10-26-2018 [facility] (11993) Comment: Performed By: #### [id number] # ### MARCUS JeriHemo [address] [place] [address] egfr on 2018-10-26 GFR/1.73 sq M predicted 45 mL/min/1.73 m2 Normal 0 10-26-2018 [facility] among non-blacks MDRD [facility] (67921) (S/P/Bld) [Vol rate/Area] Comment: Order Comment: Order Added erma y Katya Expert. Performed By: #### [id number] # ### MARCUS Kenyono [facility] [place] [address] GFR/1.73 sq M predicted 37 mL/min/1.73 m2 Normal 0 10-26-2018 [facility] among non-blacks MDRD Health System (47375) (S/P/Bld) [Vol rate/Area] Comment: Order Comment: Order Added erma Aldana Expert. Performed By: #### [id number] # ### MARCUS [address] [address] cmp on 2018-10-26 Albumin [Mass/Vol] 4.2 3.4-5.0 gm/dL Normal 10-26-2018 [facility] (00 000) Comment: Performed By: #### [id number] # ### MARCUS Kenyono [address] [place] [address] Albumin/Globulin [Mass 1.6 1.1-1.9 ratio Normal 019 [facility] Sys tem (49901) Comment: Performed By: #### [id number] # ### MARCUS Kenyono [facility] [place] [address] Alk Phos 66 33-110 Int._Unit/L Normal 10-26-2018 [facility] (17416) Comment: Performed By: #### [id number] # ### MARCUS Kenyono [facility]5 [place] [address] ALT [Catalytic 22 7-45 Int._Unit/L Normal 10-26-2018 [facility] activity/Vol [facility] (54036) Comment: Performed By: #### [id number] # ### MARCUSShawn WilcoxHemo [facility] [place] [address] Anion gap [Moles/Vol] 12 10-20 mEq/L Normal 10-26-19 19 [facility] (00 000) Comment: Performed By: #### [id number] # ### MARCUS WilcoxHemo [address] [place] [address] AST [Catalytic 33 9-39 Int._Unit/L Normal 10-26-2018 [facility] (23545[facility] Comment: Performed By: #### [id number] # ### MARCUS WilcoxHemo [address] [place] [address] Bili Total 0.38 0.00-1.20 mg/dL Normal 10-26-2018 [facility] (24216) Comment: Performed By: #### [id number] # ### MARCUS WilcoxHemo [address] [place] [address] Calcium [Mass/Vol] 9.2 8.6-10.3 mg/dL Normal 10-26-2018 [facility] (00 000) Comment: Performed By: #### [id number] # ### MARCUS WilcoxHemo [facility] [place] [address] Chloride [Moles/Vol] 110 98-107 mEq/L High [facility] () Comment: Performed By: #### [id number] # ### MARCUS WilcoxHemo [address] [place] [address] CO2 [Moles/Vol] 24.0 21.0-32.0 mEq/L Normal 10-26-2018 [facility] (00 000) Comment: Performed By: #### [id number] # ### MARCUS WilcoxHemo [address] [place] [address] Creatinine [Mass/Vol] 1.5 0.5-1.1 mg/dL High 10-26-19 19 [facility] (00 000) Comment: Performed By: #### [id number] # ### MARCUS RemHemo [address] [place] [address] Globulin (S) [Mass/Vol] 3.0 2.0-4.0 G/DL Normal 2018 [facility] (00 000) Comment: Performed By: #### [id number] # ### MARCUS RemHemo [address] [place] [address] Glucose [Mass/Vol] 97 70-99 mg/dL Normal 10-26-2018 [facility] (52866) Comment: Performed By: #### [id number] # ### MARCUS WilcoxHemo [address] [place] [address] Potassium [Moles/Vol] 4.9 3.5-5.3 mEq/L Normal 10-26-19 [facility] (00 000) Comment: Performed By: #### [id number] # ### MARCUS WilcoxHemo [address] [place] [address] Protein [Mass/Vol] 6.9 6.4-8.2 gm/dL Normal 10-26-2018 [facility] (00 000) Comment: Performed By: #### [id number] # ### MARCUS WilcoxHemo [facility] [place] [address] Sodium [Moles/Vol] 141 136-145 mEq/L Normal 10-26-2018 [facility] (00 000) Comment: Performed By: #### [id number] # ### MARCUS WilcoxHemo [facility] [place] [address] Urea nitrogen [Mass/Vol] 17 6-23 mg/dL Normal 10-26 [facility] (00 000) Comment: Performed By: #### [id number] # ### MARCUS WilcoxHemo [address] [place] [address] Urea nitrogen/Creatinine 11.3 5.4-30.0 ratio Normal 10-26 [facility] [Mass ratio] Health System (06537) Comment: Performed By: #### [id number] # ### MARCUS JeriHemo [facility] [place] [address] cbc w/ auto diff on 2018-10-26 Erythrocyte distribution 13.2 11.5-14.5 % Normal 10-26 [facility] width (RBC) [Ratio] Health System (00281) Comment: Performed By: #### [id number] # ### MARCUS WilcoxHemo [facility]5 [place] [address] Hematocrit (Bld) [Volume 44.4 36.0-48.0 % Normal 10-26 [facility]] [facility] Sys tem (63084) Comment: Performed By: #### [id number] # ### MARCUSShawn WilcoxHemo [facility]5 [place] [address] Hemoglobin (Bld) 14.8 12.0-16.0 G/DL Normal 10-26-2018 [facility] [Mass/Vol] Health Sy stem (57067) Comment: Performed By: #### [id number] # ### MARCUS WilcoxHemo [address] [place] [address] MCH (RBC) [Entitic mass] 30.7 27.0-31.0 pg Normal 10-26 [facility] (00 000) Comment: Performed By: #### [id number] # ### MARCUS WilcoxHemo [facility] [place] [address] MCHC (RBC) [Mass/Vol] 33.3 33.0-37.0 G/DL Normal 10-26-19 19 [facility] () Comment: Performed By: #### [id number] # ### MARCUS WilcoxHemo [facility] [place] [address] MCV (RBC) [Entitic vol] 92.1 78.0-100.0 fL Normal 10-26 [facility] Sys tem (85101) Comment: Performed By: #### [id number] # ### MARCUS WilcoxHemo [facility] [place] [address] Platelet mean volume 7.8 7.4-11.0 fL Normal 9 [facility] (Bld) [Entitic vol] System (49683) Comment: Performed By: #### [id number] # ### MARCUS RemHemo [facility] [place] [address] Platelets (Bld) [#/Vol] 93 130-400 E3/mcL Low 2018 [facility] ( 000) Comment: Performed By: #### [id number] # ### MARCUS RemHemo [address] [place] [address] RBC (Bld) [#/Vol] 4.82 3.90-5.40 E6/mcL Normal 10-26-2018 [facility] (00 000) Comment: Performed By: #### [id number] # ### MARCUS RemHemo [address] [place] [address] WBC (Bld) [#/Vol] 4.7 3.6-11.0 E3/mcL Normal 10-26-2018 [facility] (00 000) Comment: Performed By: #### [id number] # ### MARCUS RemHemo [address] [place] [address] xr spine lumbosacral 2 or 3 views on 2018-10-14 XR Spine Lumbosacral Exam Date/Time: Normal [facility] 2 or 3 Views 10/14/2018 15:28 [facility] Reason for Exam: (00 000) Back pain Report STUDY: XR Spine Lumbosacral 2 or 3 Views; 10/14/2018 3:28 pm INDICATION: Back pain. COMPARISON: 01/21/2017 ACCESSION NUMBER(S): [id number] ORDERING CLINICIAN: Moi De La Cruz FINDINGS: [...] 2017 Color (U) Yellow Yellow Normal 10-14-2018 [facility] (39333) Comment: Performed By: #### [id number] # ### MARCUS RemHemo [facility] [place] [address] Glucose (U) [Mass/Vol] Negative Negative mg/dL Normal 018 [facility] Sys tem (28071) Comment: Performed By: #### [id number] # ### MARCUS RemHemo [address] [place] [address] Ketones Ql (U) Negative Negative Normal 10-14-2018 [facility] (24172) Comment: Performed By: #### [id number] # ### MARCUS RemHemo [facility] [place] [address] RBC (U) [#/Vol] 10-20 0-3 Abnormal 10-14-2018 [facility] (38498) Comment: Performed By: #### [id number] # ### MARCUS WilcoxHemo [address] [place] [address] UA Blood Negative Negative Normal 10-14-2018 [facility] (40665) Comment: Performed By: #### [id number] # ### MARCUS WilcoxHemo [address] [place] [address] UA Clarity Cloudy Clear Abnormal 10-14-2018 [facility] (42336) Comment: Performed By: #### [id number] # ### MARCUS WilcoxHemo [facility] [place] [address] UA Hyal Cast 5-10 0-2 Abnormal 10-14-2018 [facility] (13705) Comment: Performed By: #### [id number] # ### MARCUS WilcoxHemo [facility] [place] [address] UA Leuk Est 3+ Negative Abnormal 10-14-2018 [facility] (36687) Comment: Performed By: #### [id number] # ### MARCUS WilcoxHemo [address] [place] [address] UA Mucous Trace Trace Abnormal 10-14-2018 [facility] (96621) Comment: Performed By: #### [id number] # ### MARCUS WilcoxHemo [address] [place] [address] UA Nitrite Negative Negative Normal 10-14-2018 [facility] (97710) Comment: Performed By: #### [id number] # ### MARCUS WilcoxHemo [address] [place] [address] UA pH 7.0 4.6-8.0 Normal 10-14-2018 [facility] (84936) Comment: Performed By: #### [id number] # ### MARCUS WilcoxHemo [address] [place] [address] UA Protein Negative Negative Normal 10-14-2018 [facility] (64494) Comment: Performed By: #### [id number] # ### MARCUS WilcoxHemo [address] [place] [address] UA Spec Grav 1.016 1.003-1.030 Normal 10-14-2018 [facility] (95537) Comment: Performed By: #### [id number] # ### MARCUS WilcoxHemo [address] [place] [address] UA Squam Epithelial >30 0-5 Abnormal 10-14-2018 [facility] (40025) Comment: Performed By: #### [id number] # ### MARCUS WilcoxHemo [address] [place] [address] UA Urobilinogen Negative Normal 10-14-2018 [facility] (31038) Comment: Result Comment: Due to a man ufacturing issue, low positive urobilinogen results may be fasely positi ve. Correlate with urine bilirubin and additional clinical/laborato ry findings to assess the risk of hemolytic anemia or liver disease. If clinically indicated, repeat testing with an alternate method is availabl e by contacting the laboratory within 24 hours. Performed By: #### [id number] # ### MARCUS WilcoxHemo [address] [place] [address] UA WBC 10-20 0-5 Abnormal 10-14-2018 [facility] (13005) Comment: Performed By: #### [id number] # ### MARCUS WilcoxHemo [address] [place] [address] Urobilinogen Qn (U) Negative Negative Normal 10-14-2018 [facility] (00 000) Comment: Performed By: #### [id number] # ### MARCUS WilcoxHemo [facility] [place] [address] xr chest ap portable on 2018-10-02 XR Chest AP Exam Date/Time: Normal 10-02-2018 S [facility] Portable 10/02/2018 11:20 EST Health System Reason for Exam: (00 000) Chest pain Report STUDY: XR Chest AP Portable; 10/02/2018 11:20 am INDICATION: Chest pain. COMPARISON: 12/15/2017 ACCESSION NUMBER(S): [id number] ORDERING CLINICIAN: Moi De La Cruz FINDINGS: [...] Troponin I.cardiac <.01 .00-.03 ng/mL Normal 10-02-2018 [facility] [Mass/Vol] [facility] (62765) Comment: Performed By: #### [id number] # ### [facility] JeriKnack.ito [facility] [place] [address] Troponin I.cardiac .01 .00-.03 ng/mL Normal 10-02-2018 [facility] [Mass/Vol] [facility] stem (27090) Comment: Performed By: #### [id number] #### [address] [address] ptt on 2018-10-02 aPTT Coag (Bld) 28.3 23.2-36.4 second(s) Normal 10-02-2018 [facility] [Time] [facility] tem (08612) Comment: Performed By: #### [id number] #### MARCUSShawn WilcoxKnack.ito [address] [place] [address] ptt control ratio o n 2018-10-02 PTT Ratio 0.9 0.8-1.2 ratio Normal 10-02-2018 [facility] (73950) Comment: Order Comment: Order added b y Discern Expert. Performed By: #### [id number] #### MARCUSShawn WilcoxKnack.[facility] [place] [address] pt on 2018-10-02 INR Coag (PPP) [Relative 1.1 1.0-1.2 {INR} Normal 10-02 [facility] tem (12971) Comment: Result Comment: INR Recommen ded Therapeuptic Ranges: Prophylaxis/treatment of DVT and PE?2.0-3.0 Prevention of systemic embol ism?.2.0-3.0 Mechanical prosthetic values ?2.5-3.5 CRITICAL VALUES?.>4.0 Performed By: #### [id number] #### MARCUS [address] [place] [address] PT Coag (PPP) [Time] 13.2 11.6-14.6 second(s) Normal 8 [facility] Sys tem (74657) Comment: Performed By: #### [id number] #### MARCUS [address] [address] manual diff on 2017 Anisocytosis Ql (Bld) 2+ Normal 10-02-20 18 [facility] (49932) Comment: Order Comment: Order Added erma Aldana Expert. Performed By: #### [id number] #### MARCUS [address] [address] Band form neutrophils/100 WBC 6 0-1 High 10-02-2018 [facility] (d) System (00 000) Comment: Order Comment: Order Added erma Aldana Expert. Performed By: #### [id number] #### MARCUS Kenyono [address] [place] [address] Basophil Man 0 0-1 % Normal 10-02-2018 [facility] (16537) Comment: Order Comment: Order Added erma Aldana Expert. Performed By: #### [id number] #### MARCUS Kenyono [address] [place] [address] Eosinophils/100 WBC (Bld) 1 0-5 % Normal 09-17 [facility] (80049) Comment: Order Comment: Order Added erma Aldana Expert. Performed By: #### [id number] #### MARCUSShawn WilcoxCentral New [facility] Psychiatric Centero [address] [place] [address] Lymphocytes/100 WBC (Bld) 37 14-48 % Normal 09-17 [facility] (00 000) Comment: Order Comment: Order Added b y Discern Expert. Performed By: #### [id number] #### MARCUS WilcoxHemo [address] [place] [address] [place] Man 3 0-0 % High 10-02-2018 [facility] (79318) Comment: Order Comment: Order Added b y Discern Expert. Performed By: #### [id number] #### MARCUS WilcoxHemo [address] [place] [address] Monocyte Man 10 1-11 % Normal 10-02-2018 [facility] (28036) Comment: Order Comment: Order Added b y Discern Expert. Performed By: #### [id number] #### MARCUSShawn WilcoxHemo [address] [place] [address] Poikilocytosis 1+ Normal 10-02-2018 [facility] (28885) Comment: Order Comment: Order Added b y Discern Expert. Performed By: #### [id number] #### MARCUSShawn WilcoxHemo [facility] [place] [id number] Polychromasia 1+ Normal 10-02-2018 [facility] (82524) Comment: Order Comment: Order Added b y Discern Expert. Performed By: #### [id number] #### MARCUSShawn WilcoxKnack.ito [facility] [place] [id number] RBC morphology finding SEE MORPHOLOGY Normal [facility] ([facility]) Health Sys tem (91174) Comment: Order Comment: Order Added b y Discern Expert. Performed By: #### [id number] #### MARCUSShawn WilcoxHemo [address] [place] [address] Segs Man 43 37-75 % Normal 10-02-2018 [facility] (18660) Comment: Order Comment: Order Added b y Discern Expert. Performed By: #### [id number] #### MARCUSShawn WilcoxKnack.ito [facility]5 [place] [address] magnesium on 2017-10 2-16 Magnesium [Mass/Vol] 1.9 1.6-2.4 mg/dL Normal 8 [facility] (00 000) Comment: Performed By: #### [id number] #### MARCUSShawn WilcoxHemo [address] [place] [address] egfr on 2018-10-02 GFR/1.73 sq M predicted 53 mL/min/1.73 m2 Normal 1 12-03-2017 [facility] among non-blacks [facility] (05788) (S/P/Bld) [Vol rate/Area] Comment: Order Comment: Order added b y Katya Expert. Performed By: #### [id number] #### MARCUS JeriHemo [address] [place] [address] GFR/1.73 sq M predicted 44 mL/min/1.73 m2 Normal 1 12-03-2017 [facility] among non-blacks [facility] (38215) (S/P/Bld) [Vol rate/Area] Comment: Order Comment: Order added b dl Aldana Expert. Performed By: #### [id number] #### MARCUS JeriHemo [facility]5 [place] [address] cbc w/ auto diff on 2018-10-02 Erythrocyte distribution 13.1 11.5-14.5 % Normal 10-02 [facility] width (RBC) [Ratio] Health System (56736) Comment: Performed By: #### [id number] #### MARCUS RemHemo [address] [place] [address] Hematocrit (Bld) [Volume 40.9 36.0-48.0 % Normal 10-02 [facility] fraction] Health Sys tem (76051) Comment: Performed By: #### [id number] #### MARCUS JeriHemo [address] [place] [address] Hemoglobin (Bld) 13.7 12.0-16.0 G/DL Normal 10-02-2018 [facility] [Mass/Vol] Health Sy stem (83193) Comment: Performed By: #### [id number] #### MARCUS RemHemo [address] [place] [address] MCH (RBC) [Entitic mass] 31.0 27.0-31.0 pg Normal 10-02 [facility] System (00 000) Comment: Performed By: #### [id number] #### MARCUS RemHemo [address] [place] [address] MCHC (RBC) [Mass/Vol] 33.7 33.0-37.0 G/DL Normal 10-02-20 [facility] (00 000) Comment: Performed By: #### [id number] #### MARCUS WilcoxHemo [facility]5 [place] [address] MCV (RBC) [Entitic vol] 92.1 78.0-100.0 fL Normal 10-02 [facility] tem (61499) Comment: Performed By: #### [id number] #### MARCUS WilcoxHemo [facility]5 [place] [address] Platelet mean volume 8.4 7.4-11.0 fL Normal [facility] (Bld) [Entitic vol] System (66438) Comment: Performed By: #### [id number] #### MARCUS WilcoxHemo [facility]5 [place] [address] Platelets (Bld) [#/Vol] 82 130-400 E3/mcL Low 2017 [facility] (00 000) Comment: Performed By: #### [id number] #### MARCUSShawn WilcoxHemo [address] [place] [address] RBC (Bld) [#/Vol] 4.44 3.90-5.40 E6/mcL Normal 10-02-2018 [facility] (00 000) Comment: Performed By: #### [id number] #### MARCUSShawn WilcoxHemo [address] [place] [address] WBC (Bld) [#/Vol] 5.3 3.6-11.0 E3/mcL Normal 10-02-2018 [facility] (00 000) Comment: Performed By: #### [id number] #### MARCUSShawn WilcoxHemo [address] [place] [address] bmp on 2018-10-02 Anion gap [Moles/Vol] 9 10-20 mEq/L Low 10-02-20 18 [facility] (38998) Comment: Performed By: #### [id number] #### MARCUS [facility] Center[facility] [address] [place] [address] Calcium [Mass/Vol] 8.4 8.6-10.3 mg/dL Low 10-02-2018 [facility] (82859) Comment: Performed By: #### [id number] #### MARCUS WilcoxHemo [address] [place] [address] Chloride [Moles/Vol] 111 98-107 mEq/L High 8 [facility] (00 000) Comment: Performed By: #### [id number] #### MARCUS RemHemo [address] [place] [address] CO2 [Moles/Vol] 22.0 21.0-32.0 mEq/L Normal 10-02-2018 [facility] ( 000) Comment: Performed By: #### [id number] #### MARCUS JeriHemo [facility]5 [place] [address] Creatinine [Mass/Vol] 1.3 0.5-1.1 mg/dL High 10-02-20 18 [facility] (00 000) Comment: Performed By: #### [id number] #### MARCUS RemHemo [facility]5 [place] [address] Glucose [Mass/Vol] 88 70-99 mg/dL Normal 10-02-2018 [facility] (85382) Comment: Performed By: #### [id number] #### MARCUS JeriHemo [facility]5 [place] [address] Potassium [Moles/Vol] 4.2 3.5-5.3 mEq/L Normal 10-02-20 18 [facility] (00 000) Comment: Performed By: #### [id number] #### MARCUS RemHemo [facility] [place] [address] Sodium [Moles/Vol] 138 136-145 mEq/L Normal 10-02-2018 [facility] ( 000) Comment: Performed By: #### [id number] #### MARCUS RemHemo [address] [place] [address] Urea nitrogen [Mass/Vol] 16 6-23 mg/dL Normal 10-02 [facility] (00 000) Comment: Performed By: #### [id number] #### MARCUS RemHemo [facility]5 [place] [address] Urea nitrogen/Creatinine 12.3 5.4-30.0 ratio Normal 10-02 [facility] [Mass ratio] [facility] (76926) Comment: Performed By: #### [id number] #### MARCUS Kenyoncorky [address] [place] [address] .manual abs on 2017 Basophil Abs Man 0.0 0.0-0.2 10x3/ Normal 10-02-2018 [facility] (02886) Comment: Order Comment: Order Added erma Aldana Expert. Performed By: #### [id number] #### MARCUSShawn Luong [address] [place] [address] Eos Abs Man 0.1 0.0-0.5 10x3/ Normal 10-02-2018 [facility] (18566) Comment: Order Comment: Order Added erma Aldana Expert. Performed By: #### [id number] #### MARCUS Ag [address] [place] [address] Lymph Abs Man 2.0 1.2-3.4 10x3/ Normal 10-02-2018 [facility] (39608) Comment: Order Comment: Order Added erma Aldana Expert. Performed By: #### [id number] #### MARCUS WilcoxRahul [address] [place] [address] Ross Abs Man 0.5 0.0-0.7 10x3/ Normal 10-02-2018 [facility] (61771) Comment: Order Comment: Order Added erma Aldana Expert. Performed By: #### [id number] #### MARCUSShawn Luong [address] [place] [address] Segs Abs Man 2.3 1.4-6.5 10x3/ Normal 10-02-2018 [facility] (87573) Comment: Order Comment: Order Added erma Aldana Expert. Performed By: #### [id number] #### MARCUSShawn Luong [facility]5 [place] [address] c urine on C Urine Final Report: Moderate Normal 018 [facility] Normal skin joe isolated System (04580) Comment: Performed By: #### [id number] #### MARCUS WilcoxHemo [address] [place] [address] ua complete on 2017 Color (U) Yellow Yellow Normal 09-22-2018 [facility] (68038) Comment: Performed By: #### [id number] #### MARCUS WilcoxHemo [address] [place] [address] Glucose (U) [Mass/Vol] Negative Negative mg/dL Normal 018 [facility] Sys tem (15346) Comment: Performed By: #### [id number] #### MARCUS WilcoxHemo [address] [place] [address] Ketones Ql (U) Negative Negative Normal 09-22-2018 [facility] (69607) Comment: Performed By: #### [id number] #### MARCUS WilcoxHemo [facility]5 [place] [address] RBC (U) [#/Vol] 20-50 0-3 Abnormal 09-22-2018 [facility] (87137) Comment: Performed By: #### [id number] #### MARCUS WilcoxHemo [facility]5 [place] [address] UA Blood Negative Negative Normal 09-22-2018 [facility] (75332) Comment: Performed By: #### [id number] #### MARCUS WilcoxHemo [address] [place] [address] UA Bacteria 2+ None /HPF Abnormal 09-22-2018 [facility] (58727) Comment: Performed By: #### [id number] #### MARCUSShawn WilcoxHemo [address] [place] [address] UA Clarity Cloudy Clear Abnormal 09-22-2018 [facility] (71869) Comment: Performed By: #### [id number] #### MARCUS RemHemo [address] [place] [address] UA Leuk Est 3+ Negative Abnormal 09-22-2018 [facility] (21906) Comment: Performed By: #### [id number] #### MARCUSShawn WilcoxHemo [address] [place] [address] UA Mucous Trace Trace Abnormal 09-22-2018 [facility] (44156) Comment: Performed By: #### [id number] #### MARCUS WilcoxHemo [address] [place] [address] UA Nitrite Negative Negative Normal 09-22-2018 [facility] (85828) Comment: Performed By: #### [id number] #### MARCUS Kenyono [facility]5 [place] [address] UA pH 7.0 4.6-8.0 Normal 09-22-2018 [facility] (40147) Comment: Performed By: #### [id number] #### MARCUS WilcoxHemo [facility]5 [place] [address] UA Protein Negative Negative Normal 09-22-2018 [facility] (26603) Comment: Performed By: #### [id number] #### MARCUS WilcoxHemo [facility]5 [place] [address] UA Spec Grav 1.014 1.003-1.030 Normal 09-22-2018 [facility] (33791) Comment: Performed By: #### [id number] #### MARCUS WilcoxHemo [address] [place] [address] UA Squam Epithelial >30 0-5 Abnormal 09-22-2018 [facility] (57050) Comment: Performed By: #### [id number] #### MARCUS WilcoxHemo [address] [place] [address] UA Urobilinogen Negative Normal 09-22-2018 [facility] (62350) Comment: Result Comment: Due to a man ufacturing issue, low positive urobilinogen results may be fasely positi ve. Correlate with urine bilirubin and additional clinical/laborato ry findings to assess the risk of hemolytic anemia or liver disease. If clinically indicated, repeat testing with an alternate method is availabl e by contacting the laboratory within 24 hours. Performed By: #### [id number] #### MARCUS WilcoxHemo [facility] [place] [address] UA WBC 20-50 0-5 Abnormal 09-22-2018 [facility] (77720) Comment: Performed By: #### [id number] #### MARCUS WilcoxHemo [facility]5 [place] [address] Urobilinogen Qn (U) Negative Negative Normal 09-22-2018 [facility] (00 000) Comment: Performed By: #### [id number] #### MARCUS Kenyono [facility]5 [place] [address] u bhcg qlt on 09-22 HCG.beta subunit Qn Neg Neg m[IU]/mL Normal 09-22-2018 [facility] (00 000) Comment: Performed By: #### [id number] #### MARCUS Kenyono [facility]5 [place] [address] lipase level on 201 05-29-06 Lipase Lvl 44 9-82 Int._Unit/L Normal 09-22-2018 [facility] (32776) Comment: Performed By: #### [id number] #### MARCUS Kenyono [facility]5 [place] [address] hep func panel on 2 Albumin [Mass/Vol] 4.7 3.4-5.0 gm/dL Normal 09-22-2018 [facility] (00 000) Comment: Performed By: #### [id number] #### MARCUS Kostaso [address] [place] [address] Albumin/Globulin [Mass 1.7 1.1-1.9 ratio Normal [address] [place] [address]] Health Sys tem (94089) Comment: Performed By: #### [id number] #### MARCUS Kostaso [facility]5 [place] [address] Alk Phos 67 33-110 Int._Unit/L Normal 09-22-2018 [facility] (98027) Comment: Performed By: #### [id number] #### MARCUS JeriHemo [facility]5 [place] [address] ALT [Catalytic 19 7-45 Int._Unit/L Normal 09-22-2018 [facility] activity/Vol] Health System (12655) Comment: Performed By: #### [id number] #### MARCUS JeriHemo [address] [place] [address] AST [Catalytic 31 9-39 Int._Unit/L Normal 09-22-2018 [facility] activity/Vol] Health System (20655) Comment: Performed By: #### [id number] #### MARCUS WilcoxHemo [address] [place] [address] Bili Direct 0.12 0.00-0.30 mg/dL Normal 09-22-2018 [facility] (57801) Comment: Performed By: #### [id number] #### MARCUS WilcoxHemo [address] [place] [address] Bili Indirect 0.53 mg/dL Normal 09-22-2018 [facility] (84721) Comment: Result Comment: No establish ed ranges available for the indirect bilirubin Performed By: #### [id number] #### MARCUS WilcoxHemo [address] [place] [address] Bili Total 0.65 0.00-1.20 mg/dL Normal 09-22-2018 [facility] (66290) Comment: Performed By: #### [id number] #### MARCUS WilcoxHemo [address] [place] [address] Globulin (S) [Mass/Vol] 3.0 2.0-4.0 G/DL Normal 2017 [facility] (00 000) Comment: Performed By: #### [id number] #### MARCUS WilcoxHemo [address] [place] [address] Protein [Mass/Vol] 7.4 6.4-8.2 gm/dL Normal 09-22-2018 [facility] (00 000) Comment: Performed By: #### [id number] #### MARCUS WilcoxHemo [address] [place] [address] egfr on 2018-09-22 GFR/1.73 sq M predicted 51 mL/min/1.73 m2 Normal 1 11-23-2017 [facility] among non-blacks [facility] (11827) (S/P/Bld) [Vol rate/Area] Comment: Order Comment: Order Added b y Discern Expert. Performed By: #### [id number] #### MARCUS WilcoxHemo [address] [place] [address] GFR/1.73 sq M predicted 42 mL/min/1.73 m2 Normal 1 11-23-2017 [facility] among non-blacks [facility] (56375) (S/P/Bld) [Vol rate/Area] Comment: Order Comment: Order Added erma Aldana Expert. Performed By: #### [id number] #### MARCUS Ag [address] [place] [address] ct abdomen/pelvis w/o contrast on 2018-09-22 CT Abdomen/Pelvis w/o Exam Date/Time: Normal Sikh Contrast 09/22/2018 18:11 EST [facility] Reason for Exam: Sys tem (71261) Abdominal Pain;Other (please specify) Report STUDY: CT Abdomen/Pelvis w/o Contrast; 09/22/2018 6:11 pm INDICATION: Other (please specify). COMPARISON: CT dated 05/19/2018 ACCESSION NUMBER(S): [id number] ORDERING CLINICIAN: Shilpa Douglas TECHNIQUE: CT of [...] Erythrocyte distribution 13.6 11.5-14.5 % Normal 09-22 [facility] width (RBC) [Ratio] Health System (68633) Comment: Performed By: #### [id number] # ### MARCUS WilcoxHemo [address] [place] [address] Hematocrit (Bld) [Volume 50.0 36.0-48.0 % High 09-22 [facility] fraction] System (00 000) Comment: Performed By: #### [id number] # ### MARCUS WilcoxHemo [facility] [place] [address] Hemoglobin (Bld) 16.9 12.0-16.0 G/DL High 09-22-2018 [facility] [Mass/Vol] [facility] Sy stem (10989) Comment: Performed By: #### [id number] # ### MARCUS WilcoxHemo [facility] [place] [address] MCH (RBC) [Entitic mass] 31.0 27.0-31.0 pg Normal 09-22 [facility] (00 000) Comment: Performed By: #### [id number] # ### MARCUS RemHemo [facility]5 [place] [address] MCHC (RBC) [Mass/Vol] 33.8 33.0-37.0 G/DL Normal 09-22-20 18 [facility] (00 000) Comment: Performed By: #### [id number] # ### MARCUSShawn WilcoxHemo [facility]5 [place] [address] MCV (RBC) [Entitic vol] 91.7 78.0-100.0 fL Normal 09-22 [facility] Sys tem (87215) Comment: Performed By: #### [id number] # ### MARCUS RemHemo [address] [place] [address] Platelet mean volume 8.1 7.4-11.0 fL Normal 8 [facility] (Bld) [Entitic vol] System (15649) Comment: Performed By: #### [id number] # ### MARCUS RemHemo [facility] [place] [address] Platelets (Bld) [#/Vol] 123 130-400 E3/mcL Low 2017 [facility] () Comment: Performed By: #### [id number] # ### MARCUS WilcoxHemo [address] [place] [address] RBC (Bld) [#/Vol] 5.45 3.90-5.40 E6/mcL High 09-22-2018 [facility] () Comment: Performed By: #### [id number] # ### MARCUS WilcoxHemo [facility] [place] [address] WBC (Bld) [#/Vol] 6.6 3.6-11.0 E3/mcL Normal 09-22-2018 [facility] () Comment: Performed By: #### [id number] # ### MARCUS WilcoxHemo [facility] [place] [address] bmp on 2018-09-22 Anion gap [Moles/Vol] 12 10-20 mEq/L Normal 09-22-20 [facility] () Comment: Performed By: #### [id number] #### MARCUS WilcoxHemo [facility] [place] [address] Calcium [Mass/Vol] 9.4 8.6-10.3 mg/dL Normal 09-22-2018 [facility] () Comment: Performed By: #### [id number] #### MARCUS WilcoxHemo [facility] [place] [address] Chloride [Moles/Vol] 110 98-107 mEq/L High [facility] () Comment: Performed By: #### [id number] #### MARUCS WilcoxHemo [address] [place] [address] CO2 [Moles/Vol] 22.0 21.0-32.0 mEq/L Normal 09-22-2018 [facility] () Comment: Performed By: #### [id number] #### MARCUS RemHemo [address] [place] [address] Creatinine [Mass/Vol] 1.4 0.5-1.1 mg/dL High 09-22-20 [facility] () Comment: Performed By: #### [id number] #### MARCUS WilcoxHemo [address] [place] [address] Glucose [Mass/Vol] 93 70-99 mg/dL Normal 09-22-2018 [facility] (01428) Comment: Performed By: #### [id number] #### MARCUS Kenyono [address] [place] [address] Potassium [Moles/Vol] 4.7 3.5-5.3 mEq/L Normal 09-22-20 18 [facility] (00 000) Comment: Performed By: #### [id number] #### MARCUS [facility]Central [facility] Cent[facility] [address] [place] [address] Sodium [Moles/Vol] 139 136-145 mEq/L Normal 09-22-2018 [facility] (00 000) Comment: Performed By: #### [id number] #### MARCUS Kenyono [address] [place] [address] Urea nitrogen [Mass/Vol] 15 6-23 mg/dL Normal 09-22 [facility] (00 000) Comment: Performed By: #### [id number] #### MARCUS Kenyono [address] [place] [address] Urea nitrogen/Creatinine 10.7 5.4-30.0 ratio Normal 09-22 [facility] [Mass ratio] [facility] (60048) Comment: Performed By: #### [id number] #### MARCUS Kenyon[address] [address] auto diff on 2017-10 2 Basophils (Bld) [#/Vol] 0.0 0.0-0.2 E3/mcL Normal 2017 [facility] Sys tem (85984) Comment: Order Comment: Order Added b y Discern Expert. Performed By: #### [id number] #### MARCUSShawn Kenyono [address] [place] [address] Basophils/100 WBC (Bld) 0.4 0.0-2.0 % Normal 2017 [facility] (00 000) Comment: Order Comment: Order Added b y Discern Expert. Performed By: #### [id number] #### MARCUS RemHemo [address] [place] [address] [place] [address] Eos Absolute 0.1 0.0-0.7 E3/mcL Normal 09-22-2018 [facility] (41980) Comment: Order Comment: Order Added erma Aldana Expert. Performed By: #### [id number] #### MARCUS WilcoxHemo [address] [place] [address] Eosinophils/100 WBC (Bld) 1.6 0.0-11.0 % Normal [facility] (00 000) Comment: Order Comment: Order Added erma Aldana Expert. Performed By: #### [id number] #### MARCUS RemHemo [address] [place] [address] Lymphocytes (Bld) [#/Vol] 2.0 1.2-3.4 E3/mcL Normal [facility] (44366) Comment: Order Comment: Order Added erma Aldana Expert. Performed By: #### [id number] #### MARCUS WilcoxHemo [address] [place] [address] 31668 Lymphocytes/100 WBC (Bld) 30.2 20.0-55.0 % Normal [facility] (65933) Comment: Order Comment: Order Added erma Aldana Expert. Performed By: #### [id number] #### MARCUS RemHemo [address] [place] [address] Ross Absolute 0.6 0.0-0.7 E3/mcL Normal 09-22-2018 [facility] (01645) Comment: Order Comment: Order Added erma Aldana Expert. Performed By: #### [id number] #### MARCUS RemHemo [address] [place] [address] 16068 Monocytes/100 WBC (Bld) 9.0 0.0-10.0 % Normal 2017 [facility] (00 000) Comment: Order Comment: Order Added erma Aldana Expert. Performed By: #### [id number] #### MARCUS RemHemo [address] [place] [address] Neutro Absolute 3.9 1.4-6.5 E3/mcL Normal 09-22-2018 [facility] (91563) Comment: Order Comment: Order Added erma Aldana Expert. Performed By: #### [id number] #### MARCUS RemHemo [address] [place] [address] Neutro Auto 58.8 37.0-75.0 % Normal 09-22-2018 [facility] (53622) Comment: Order Comment: Order Added erma Aldana Expert. Performed By: #### [id number] #### MARCUS RemHemo [address] [place] [address] c urine on C Urine Final Report: Few Mixed skin Normal 1 [facility] (07565) Comment: Performed By: #### [id number] # ### MARCUS Microbiology Subsection [address] [place] [address] ua complete on 2017 Color (U) Yellow Yellow Normal 08-15-2018 [facility] (29919) Comment: Order Comment: Straight Cath as needed Performed By: #### [id number] #### MARCUS Urinalysis Automated Suggs bsection [address] [place] [address] Glucose (U) [Mass/Vol] 1+ Negative Abnormal 018 [facility] (00 000) Comment: Order Comment: Straight Cath as needed Performed By: #### [id number] #### MARCUS Urinalysis Automated Suggs bsection [address] [place] [address] Ketones Ql (U) Negative Negative Normal 08-15-2018 [facility] (78159) Comment: Order Comment: Straight Cath as needed Performed By: #### [id number] #### MARCUS Urinalysis Automated Suggs bsection [address] [place] [address] RBC (U) [#/Vol] 0-3 0-3 Normal 08-15-2018 [facility] (92833) Comment: Order Comment: Straight Cath as needed Performed By: #### [id number] #### MARCUS Urinalysis Automated Suggs bsection [address] [place] [address] UA Blood Negative Negative Normal 08-15-2018 [facility] (42058) Comment: Order Comment: Straight Cath as needed Performed By: #### [id number] #### MARCUS Urinalysis Automated Suggs bsection [address] [place] [address] UA Bacteria Trace None Abnormal 08-15-2018 [facility] (25294) Comment: Order Comment: Straight Cath as needed Performed By: #### [id number] #### MARCUS Urinalysis Automated Suggs bsection [address] [place] [address] UA Clarity SltCloudy Clear Abnormal 08-15-2018 [facility] (71555) Comment: Order Comment: Straight Cath as needed Performed By: #### [id number] #### MARCUS Urinalysis Automated Suggs bsection [address] [place] [address] UA Hyal Cast 0-2 0-2 Normal 08-15-2018 [facility] (13817) Comment: Order Comment: Straight Cath as needed Performed By: #### [id number] #### MARCUS Urinalysis Automated Suggs bsection [address] [place] [address] UA Leuk Est 1+ Negative Abnormal 08-15-2018 [facility] (33902) Comment: Order Comment: Straight Cath as needed Performed By: #### [id number] #### MARCUS Urinalysis Automated Suggs bsection [address] [place] [address] UA Mucous Trace Trace Abnormal 08-15-2018 [facility] (05865) Comment: Order Comment: Straight Cath as needed Performed By: #### [id number] #### MARCUS Urinalysis Automated Suggs bsection [address] [place] [address] UA Nitrite Negative Negative Normal 08-15-2018 [facility] (37811) Comment: Order Comment: Straight Cath as needed Performed By: #### [id number] #### MARCUS Urinalysis Automated Suggs bsection [address] [place] [address] UA pH 7.0 4.6-8.0 Normal 08-15-2018 [facility] (08019) Comment: Order Comment: Straight Cath as needed Performed By: #### [id number] #### MARCUS Urinalysis Automated Suggs bsection [address] [place] [address] UA Protein Negative Negative Normal 08-15-2018 [facility] (65700) Comment: Order Comment: Straight Cath as needed Performed By: #### [id number] #### MARCUS Urinalysis Automated Suggs bsection [address] [place] [address] UA Spec Grav 1.012 1.003-1.030 Normal 08-15-2018 [facility] (21597) Comment: Order Comment: Straight Cath as needed Performed By: #### [id number] #### MARCUS Urinalysis Automated Suggs bsection [address] [place] [address] UA Squam Epithelial 5-10 0-5 Abnormal 08-15-2018 [facility] (89175) Comment: Order Comment: Straight Cath as needed Performed By: #### [id number] #### MARCUS Urinalysis Automated Suggs bsection [address] [place] [address] UA Urobilinogen Negative Normal 08-15-2018 [facility] (03860) Comment: Order Comment: Straight Cath as needed Performed By: #### [id number] #### MARCUS Urinalysis Automated Suggs bsection [address] [place] [address] UA WBC 10-20 0-5 Abnormal 08-15-2018 [facility] (10167) Comment: Order Comment: Straight Cath as needed Performed By: #### [id number] #### MARCUS Urinalysis Automated Suggs bsection [address] [place] [address] Urobilinogen Qn (U) Negative Negative Normal 08-15-2018 [facility] (00 000) Comment: Order Comment: Straight Cath as needed Performed By: #### [id number] #### MARCUS Urinalysis Automated Suggs bsection [address] [place] [address] zzplt morph on 2017 Platelet morphology finding NORMAL Normal [facility] (00 000) Comment: Performed By: #### [id number] #### MARCUS RemHemo [address] [place] [address] Platelets (d) [#/Vol] DECREASED Normal 2017 [facility] (00 000) Comment: Performed By: #### [id number] #### MARCUS [place] [id number] tsh on 2018-08-14 TSH Qn 2.16 0.30-5.60 mcIU/mL Normal 08-14-2018 [facility] (32202) Comment: Order Comment: With T4fr Ref kurt Performed By: #### [id number] # ### MARCUSShawn WilcoxJoshua [place] [id number] morph on 2018-08-14 Anisocytosis Ql (Bld) 1+ Normal 08-14-20 18 [facility] (65430) Comment: Order Comment: Order Added b y Discern Expert. Performed By: #### [id number] #### MARCUS [place] [id number] RBC morphology finding SEE MORPHOLOGY Normal [facility] (96312) Comment: Order Comment: Order Added b y Discern Expert. Performed By: #### [id number] #### MARCUS [place] [id number] egfr on 2018-08-14 GFR/1.73 sq M predicted 53 mL/min/1.73 m2 Normal 1 [facility] among non-blacks [facility] (32501) (S/P/Bld) [Vol rate/Area] Comment: Order Comment: Order added b y Discern Expert. Performed By: #### [id number] #### MARCUSShawn WilcoxJoshua [place] [id number] GFR/1.73 sq M predicted 44 mL/min/1.73 m2 Normal 1 [facility] among non-blacks [facility] (58949) (S/P/Bld) [Vol rate/Area] Comment: Order Comment: Order added b y Discern Expert. Performed By: #### [id number] #### MARCUSShawn WilcoxJoshua [place] [id number] cbc w/ auto diff on 2018-08-14 Erythrocyte distribution 13.2 11.5-14.5 % Normal 08-14 [facility] width (RBC) [Ratio] [facility] (36438) Comment: Performed By: #### [id number] # ### MARCUS WilcoxHemo [address] [place] [address] Hematocrit (Bld) [Volume 42.1 36.0-48.0 % Normal 08-14 [facility] (89873) Comment: Performed By: #### [id number] # ### MARCUS WilcoxHemo [address] [place] [address] Hemoglobin (Bld) 14.1 12.0-16.0 G/DL Normal 08-14-2018 [facility] [Mass/Vol] [facility] (65208) Comment: Performed By: #### [id number] # ### MARCUSShawn WilcoxHemo [facility] [place] [address] MCH (RBC) [Entitic mass] 30.8 27.0-31.0 pg Normal 08-14 [facility] (00 000) Comment: Performed By: #### [id number] # ### MARCUSShawn WilcoxHemo [address] [place] [address] MCHC (RBC) [Mass/Vol] 33.5 33.0-37.0 G/DL Normal 08-14-20 18 [facility] (00 000) Comment: Performed By: #### [id number] # ### MARUCSShawn WilcoxHemo [address] [place] [address] 48663 MCV (RBC) [Entitic vol] 91.7 78.0-100.0 fL Normal 08-14 [facility] (07703) Comment: Performed By: #### [id number] # ### MARCUSShawn WilcoxHemo [address] [place] [address] 21621 Platelet mean volume 8.8 7.4-11.0 fL Normal 8 [facility] (Bld) [Entitic vol] System (04000) Comment: Performed By: #### [id number] # ### MARCUS [facility] [place] [address] Platelets (Bld) [#/Vol] 78 130-400 E3/mcL Low 2017 [facility] (00 000) Comment: Performed By: #### [id number] # ### MARCUS [facility] [place] [address] RBC (Bld) [#/Vol] 4.60 3.90-5.40 E6/mcL Normal 08-14-2018 [facility] () Comment: Performed By: #### [id number] # ### MARCUS RemHemo [address] [place] [address] WBC (Bld) [#/Vol] 4.2 3.6-11.0 E3/mcL Normal 08-14-2018 [facility] () Comment: Performed By: #### [id number] # ### MARCUS RemHemo [address] [place] [address] bmp on 2018-08-14 Anion gap [Moles/Vol] 13 10-20 mEq/L Normal 08-14-20 [facility] () Comment: Performed By: #### [id number] # ### MARCUS RemChem [address] [place] [address] Calcium [Mass/Vol] 8.3 8.6-10.3 mg/dL Low 08-14-2018 [facility] (84451) Comment: Performed By: #### [id number] # ### MARCUS RemChem [address] [place] [address] Chloride [Moles/Vol] 110 98-107 mEq/L High [facility] () Comment: Performed By: #### [id number] # ### MARCUS RemChem [address] [place] [address] CO2 [Moles/Vol] 21.0 21.0-32.0 mEq/L Normal 08-14-2018 [facility] () Comment: Performed By: #### [id number] # ### MARCUS RemChem [address] [place] [address] Creatinine [Mass/Vol] 1.3 0.6-1.3 mg/dL Normal 08-14-20 [facility] () Comment: Performed By: #### [id number] # ### MARCUS RemChem [address] [place] [address] Glucose [Mass/Vol] 122 70-99 mg/dL High 08-14-2018 [facility] (81682) Comment: Performed By: #### [id number] # ### MARCUS WilcoxChem [address] [place] [address] Potassium [Moles/Vol] 3.3 3.5-5.3 mEq/L Low 08-14-20 [facility] () Comment: Performed By: #### [id number] # ### MARCUSShawn WilcoxChem [facility] [place] [address] Sodium [Moles/Vol] 141 136-145 mEq/L Normal 08-14-2018 [facility] () Comment: Performed By: #### [id number] # ### MARCUS WilcoxChem [address] [place] [address] Urea nitrogen [Mass/Vol] 13 6-23 mg/dL Normal 08-14 [facility] () Comment: Performed By: #### [id number] # ### MARCUSShawn WilcoxChem [address] [place] [address] 45469 Urea nitrogen/Creatinine 10.0 5.4-30.0 ratio Normal 08-14 [facility] [Mass ratio] [facility] (92929) Comment: Performed By: #### [id number] # ### MARCUSShawn WilcoxChem [address] [place] [address] 82201 auto diff on 2017-10 Basophils (Bld) [#/Vol] 0.0 0.0-0.2 E3/mcL Normal 2017 [facility] (92639) Comment: Order Comment: Order Added b y Discern Expert. Performed By: #### [id number] # ### MARCUS WilcoxHemo [address] [place] [address] 29566 Basophils/100 WBC (Bld) 0.7 0.0-2.0 % Normal 2017 [facility] () Comment: Order Comment: Order Added b y Discern Expert. Performed By: #### [id number] # ### MARCUS WilcoxHemo [facility]5 [place] [address] Eos Absolute 0.1 0.0-0.7 E3/mcL Normal 08-14-2018 [facility] (99073) Comment: Order Comment: Order Added b y Discern Expert. Performed By: #### [id number] # ### MARCUS RemHemo [address] [place] [address] Eosinophils/100 WBC (Bld) 2.2 0.0-11.0 % Normal 07-19 [facility] (00 000) Comment: Order Comment: Order Added b y Discern Expert. Performed By: #### [id number] # ### MARCUS RemHemo [address] [place] [address] Lymphocytes (Bld) [#/Vol] 1.4 1.2-3.4 E3/mcL Normal 07-19 [facility] tem (75089) Comment: Order Comment: Order Added b y Discern Expert. Performed By: #### [id number] # ### MARCUS WilcoxHemo [address] [place] [address] 12751 Lymphocytes/100 WBC (Bld) 32.5 20.0-55.0 % Normal 07-19 [facility] tem (91297) Comment: Order Comment: Order Added b y Discern Expert. Performed By: #### [id number] # ### MARCUS RemHemo [address] [place] [address] Ross Absolute 0.4 0.0-0.7 E3/mcL Normal 08-14-2018 [facility] (60218) Comment: Order Comment: Order Added b y Discern Expert. Performed By: #### [id number] # ### MARCUS WilcoxHemo [address] [place] [address] 21360 Monocytes/100 WBC (Bld) 9.7 0.0-10.0 % Normal 2017 [facility] (00 000) Comment: Order Comment: Order Added b y Discern Expert. Performed By: #### [id number] # ### MARCUS RemHemo [address] [place] [address] Neutro Absolute 2.3 1.4-6.5 E3/mcL Normal 08-14-2018 [facility] (04426) Comment: Order Comment: Order Added b y Discern Expert. Performed By: #### [id number] # ### [facility] RemHemo [address] [place] [address] Neutro Auto 54.9 37.0-75.0 % Normal 08-14-2018 [facility] (79377) Comment: Order Comment: Order Added b y Katya Expert. Performed By: #### [id number] # ### MARCUS WilcoxHemcorky [facility] [place] [address] culture, urine on Culture, Urine Test Name: Culture, Urine Normal 06-16-2018 [facility] Culture Status: [facility] Culture Report: No significant growth. (05437) Micro Source: Urine - clean catch Comment: Performed By: #### GLUX #### Unless otherwise noted, all testing performed by [facility] [address] [place], [place] [address] CLIA: [id number] Molding Supervisor: Ismael vines M.D. No panel information on 2018-06-16 Bilirubin Ql (U) Negative Negative Invalid 06-16-2018 [facility] Interpretation (4321 5) Code Glucose Ql (U) Negative Normal, Invalid 06-16-2018 [facility] Negative Interpretation (4321 5) mg/dL Code Hemoglobin Test Large Negative Abnormal 06-16-2018 [facility] strip Ql (U) (18125) Interpretation and Abnormal Invalid 06-16-2018 [facility] review of Interpretation (4321 5) laboratory results Code Ketones Ql (U) Negative Negative Invalid 06-16-2018 [facility] mg/dL Interpretation (4321 5) Code Leukocyte esterase Small Negative Abnormal 06-16-2018 [facility] Test strip Ql (U) (4 3215) Nitrite Test strip Negative Negative Invalid 06-16-2018 [facility] Ql (U) Interpretation (4321 5) Code pH Test strip (U) 7.5 OTH - OTH [pH] Abnormal 06-16-2018 [facility] (31952) Protein Test strip Trace Negative Abnormal 06-16-2018 [facility] Ql (U) mg/dL (64348) Specific gravity 1.020 OTH - OTH Invalid 06-16-2018 [facility] Relative Density Interpretation (14311) (U) Code Urobilinogen Test 0.2 <2.0, 0.2, mg/d Invalid 06-16-2018 [facility] strip Qn (U) Normal, L Interpretation (4 3215) Negative, Code 1.0, 2.0, <1.0 cur on 2018-05-15 CUR . MICRO - MicrobiologyPROCEDURE: Normal 05-15-2018 [facility] Urine Culture [*1] ACCESSION: [facility] ([place]) (43214) [id number]: Urine, Straight BODY SITE: CatherizedCOLLECTED DATE/TIME: 05/13/2018 22:15 EDT RECEIVED DATE/TIME: 05/14/2018 17:17 EDTSTART DATE/TIME: 05/14/2018 17:17 EDT FREE TEXT SOURCE:PRELIMINARY REPORTSPreliminary Report []Verified Date/Time/Personnel: 05/15/2018 14:09 EDTCulture results pending.Performing Locations*1: This test was performed at: [facility], [address] [place] [address], [address] [place] [address] Comment: Performed By: #### CBC, ADIF F, ANEU ####[place] [address]#### L IP, CMP, GFR ####[place] [address] xr abdomen complete w/decub/erect on 2018-05-14 XR ABDOMEN COMPLETE ORIGINALSupine and Normal 0 05-14-2018 [facility] W/DECUB/ERECT upright views of the [facility] ([place] abdomen HISTORY: (00 000) Abdominal pain COMPARISON: [...] Patient Summary Documents Normal 04-18 [facility] ([place]) (97442) [facility] edu on Pat Edu Normal 05-14-2018 [facility] ([place]) (66034) [facility] note on 2018-05-14 [facility] Note Normal 0 05-14-2018 [facility] ([place] (35487) lip on 2018-05-14 Lipase Level 250 73-393 U/L Normal 05-14-2018 [facility]) (29564) Comment: Performed By: #### CBC, ADIF F, ANEU ####[place] [address]#### L IP, CMP, GFR ####[place] [address] cmp on 2018-05-14 Alanine aminotransferase (ALT) 41 10-35 U/L High 05-14-2018 [facility] ([place]) (0000 0) Comment: Performed By: #### CBC, ADIF F, ANEU ####[place] [id number]#### L IP, CMP, GFR ####[place] [address] Albumin 3.4 3.5-5.0 G/dL Low 05-14-2018 [facility] ([place]) (02182) Comment: Performed By: #### CBC, ADIF F, ANEU ####[place] [address]#### L IP, CMP, GFR ####[place] [address] Albumin/Globulin Ratio 1.2 1.1-2.5 ratio Normal 018 [facility] ([place]) (0000 0) Comment: Performed By: #### CBC, ADIF F, ANEU ####[place] [id number]#### L IP, CMP, GFR ####[place] [address] Alk Phos 56 40-135 U/L Normal 05-14-2018 [facility] ([place]) (77953) Comment: Performed By: #### CBC, ADIF F, ANEU ####[place] [address]#### L IP, CMP, GFR ####[place] [address] Aspartate aminotransferase 42 10-40 U/L High [facility] ([place]) (0000 0) Comment: Performed By: #### CBC, ADIF F, ANEU ####[place] [address]#### L IP, CMP, GFR ####[place] [address] Bili Total 0.5 0.2-1.0 mg/dL Normal 05-14-2018 [facility] ([place] (81750) Comment: Performed By: #### CBC, ADIF F, ANEU ####[place] [address]#### L IP, CMP, GFR ####[place] [address] BUN/Creatinine Ratio 14 7-27 ratio Normal 8 [facility] ([place] (85031) Comment: Performed By: #### CBC, ADIF F, ANEU ####[place] [address]#### L IP, CMP, GFR ####[place] [address] Calcium 8.0 8.4-10.2 mg/dL Low 05-14-2018 [facility] ([place]) (45835) Comment: Performed By: #### CBC, ADIF F, ANEU ####[place] [address]#### L IP, CMP, GFR ####[place] 752790 [address] [place] [address] Chloride 104 98-107 mmol/L Normal 05-14-2018 [facility] ([place]) (76802) Comment: Performed By: #### CBC, ADIF F, ANEU ####Bozen[address] [place], [place] [address]#### L IP, CMP, GFR ####[place] [address] CO2 23 22-29 mmol/L Normal 05-14-2018 [facility] ([place]) (94612) Comment: Performed By: #### CBC, ADIF F, ANEU ####Bozena [address] [place] [address]#### L IP, CMP, GFR ####[place] [address] Creatinine 1.28 0.55-1.02 mg/dL High 05-14-2018 [facility] ([place]) (40194) Comment: Performed By: #### CBC, ADIF F, ANEU ####[address] [place] [place] [address]#### L IP, CMP, GFR ####[place] [address] Electrolyte Balance 9.0 mEq/L Normal 05-14-2018 [facility] ([place]) (49805) Comment: Performed By: #### CBC, ADIF F, ANEU ####[address] [place] [place] [id number]#### L IP, CMP, GFR ####[place] [address] Globulin 2.9 G/dL Normal 05-14-2018 [facility] ([place]) (45436) Comment: Performed By: #### CBC, ADIF F, ANEU ####[address] [place] [place] 661627#### L IP, CMP, GFR ####[place] [address] Glucose mass conc 90 70-105 mg/dL Normal 05-14-2018 [facility] ([place]) (81636) Comment: Performed By: #### CBC, ADIF F, ANEU ####[address] [place], [place] [address]#### L IP, CMP, GFR ####[address] [address] Potassium molar conc 4.6 3.5-5.1 mmol/L Normal 8 [facility] ([place]) (0000 0) Comment: Performed By: #### CBC, ADIF F, ANEU ####[place] [address] [id number]#### L IP, CMP, GFR ####[place] [address] Protein 6.3 6.4-8.2 G/dL Low 05-14-2018 [facility] ([place]) (49237) Comment: Performed By: #### CBC, ADIF F, ANEU ####[place] [id number]#### L IP, CMP, GFR ####[place] [address] Sodium 136 136-145 mmol/L Normal 05-14-2018 [facility] ([place]) (17345) Comment: Performed By: #### CBC, ADIF F, ANEU ####[place] [id number]#### L IP, CMP, GFR ####[address] [address] Urea nitrogen 18 7-18 mg/dL Normal 05-14-2018 [facility] ([place]) (31650) Comment: Performed By: #### CBC, ADIF F, ANEU ####[place] [id number]#### L IP, CMP, GFR ####[address] [address] .gfr on 2018-05-14 GFR Non- 45 ml/min/1.73sqm Normal 05-14-2018 [facility] ([place]) (64025) Comment: Result Comment: GFR Populati on mean [...] #### CBC, ADIF F, ANEU ####[address] [place], [place] [address]#### L IP, CMP, GFR ####[place] 752790 [address] [place] [address] GFR 55 ml/min/1.73sqm Normal - [facility] ([place]) (0000 0) Comment: Result Comment: GFR Populati [...] #### CBC, ADIF F, ANEU ####[address] [place], [place] [address]#### L IP, CMP, GFR ####[place] 752790 [address] [place] [address] ua on 2018-05-13 UA Appear Slightly Cloudy Clear Invalid Interpretation 0 05-13-2018 [facility] ([place]) (72967) Comment: Performed By: #### UA, PREGU , UAMICAO ####[address] [place], [place] [address] UA Blood Negative Negative Normal 05-13-2018 [facility] ([place]) (71287) Comment: Performed By: #### UA, PREGU , UAMICAO ####[address] [place], [place] [address] UA Leuk Est Small Negative Invalid Interpretation 05-13 [facility] ([place]) (03348) Comment: Performed By: #### UA, PREGU , UAMICAO ####[address] [place], [place] [address] UA Nitrite Negative Negative Normal 05-13-2018 [facility] ([place]) (67891) Comment: Performed By: #### UA, PREGU , UAMICAO ####[address] [place], [place] [address] UA pH 7.5 Normal 05-13-2018 [facility] ([place]) (99643) Comment: Performed By: #### UA, PREGU , UAMICAO ####[address] [place], [place] [address] UA Protein Negative Negative Normal 05-13-2018 [facility] ([place]) (15270) Comment: Performed By: #### UA, PREGU , UAMICAO ####[address] [place], [place] [address] UA Spec Grav 1.005 Invalid Interpretation Code 05-13-2018 [facility] ([place]) (32055) Comment: Performed By: #### UA, PREGU , UAMICAO ####[address] [place], [place] [address] UA Specimen Type Clean Catch Normal 05-13-2018 [facility] ([place]) (01208) Comment: Performed By: #### UA, PREGU , UAMICAO ####[address] [place], [place] [address] UA Urobilinogen 0.2 E.U./dL Normal 05-13-2018 [facility] ([place]) (51631) Comment: Performed By: #### UA, PREGU , UAMICAO ####[address] [place], [place] [address] Urine, color Yellow Normal 05-13-2018 [facility] ([place]) (61242) Comment: Performed By: #### UA, PREGU , UAMICAO ####[address] [place], [place] [address] Urine, glucose Negative Negative mg/dL Normal 05-13-2018 [facility] ([place]) (0000 0) Comment: Performed By: #### UA, PREGU , UAMICAO ####[address] [place], [place] [address] Urine, ketones presence Negative Negative Normal 2017 [facility] ([place]) (24230) Comment: Performed By: #### UA, PREGU , UAMICAO ####[address] [place], [place] [address] Urine, Negative Negative {Ayla'U}/dL Normal 05-13-2018 [facility] urobilinogen Foundat ion ([place]) (33627) Comment: Performed By: #### UA, PREGU , UAMICAO ####[address] [place], [place] [address] pregu on 2018-05-13 HCG ( test) Ql (U) Negative Normal [facility] ([place]) (0000 0) Comment: Performed By: #### UA, PREGU , UAMICAO ####[address] [place], [place] [address] test HCG not Invalid 05-13-2018 [facility] (u) int detected. Interpretation Code [facility] ([place]) (24972) Comment: Performed By: #### UA, PREGU , UAMICAO ####[address] [place], [place] [address] cbc on 2018-05-13 Erythrocyte distribution 13.9 11.5-14.5 % Normal 05-13 [facility] width Auto Ratio (RBC) [facility] ([place]) (40779) Comment: Performed By: #### CBC, ADIF F, ANEU ####[address] [place] [address]#### L IP, CMP, GFR ####[place] [address] Erythrocytes (RBC) 5.57 4.20-5.40 10 6/mcL High 05-13-2018 [facility] ([place]) (0000 0) Comment: Performed By: #### CBC, ADIF F, ANEU ####[place] [address]#### L IP, CMP, GFR ####[place] [address] Hematocrit (HCT) 49.2 37.0-47.0 % High 05-13-2018 [facility] ([place]) ([address]13) Comment: Performed By: #### CBC, ADIF F, ANEU ####[place] [address]#### L IP, CMP, GFR ####[place] [address] Hemoglobin mass conc 17.1 12.0-16.0 G/dL High 8 [facility] ([facility] ([place]) ([address]20) Comment: Performed By: #### CBC, ADIF F, ANEU ####[place] [address]#### L IP, CMP, GFR ####[place] [address] MCH 30.6 27.0-31.2 pg Normal 05-13-2018 [facility] ([place]) (70280) Comment: Performed By: #### CBC, ADIF F, ANEU ####[place] [address]#### L IP, CMP, GFR ####[place] [address] MCHC mass conc (RBC) 34.7 33.0-37.0 G/dL Normal 8 [facility] ([place]) (0000 0) Comment: Performed By: #### CBC, ADIF F, ANEU ####[place] [id number]#### L IP, CMP, GFR ####[place] [address] MCV 88.3 80.0-94.0 fL Normal 05-13-2018 [facility] ([place]) ([address]998) Comment: Performed By: #### CBC, ADIF F, ANEU ####[address] [place] [address]#### L IP, CMP, GFR ####[place] [address] Platelet mean volume 8.0 7.4-10.4 fL Normal 8 [facility] ([facility]) ([place]) (0000 0) Comment: Performed By: #### CBC, ADIF F, ANEU ####[place] [address]#### L IP, CMP, GFR ####[place] [address] Platelets 113 130-400 10 3/mcL Low 05-13-2018 [facility] ([place]) (97768) Comment: Performed By: #### CBC, ADIF F, ANEU ####[address] [place] [id number]#### L IP, CMP, GFR ####[place] [address] WBC (Leukocytes) 9.10 4.60-10.80 10 3/mcL Normal 05-13-2018 A [facility] ([place]) (0000 0) Comment: Performed By: #### CBC, ADIF F, ANEU ####[place] [address]#### L IP, CMP, GFR ####[place] [address] .urinalysis microscopic (ao) on 2018-05-13 UA Bacteria 1+ /hpf Invalid Interpretation Code 05-13-2018 [facility] ([place]) (83810) Comment: Performed By: #### UA, PREGU , UAMICAO ####[address] [place], [place] [address] UA Squam LOADED None Seen Invalid 05-13-2018 [facility] Epithelial Interpretation [facility] ([address]32) Comment: Performed By: #### UA, PREGU , UAMICAO ####[address] [place], [place] [address] UA WBC LOADED None Seen Invalid Interpretation 018 [facility]) (64513) Comment: Performed By: #### UA, PREGU , UAMICAO ####[address] [place], [place] [address] Urine, erythrocytes None Seen None Seen Normal 05-13-2018 [facility]) (0000 0) Comment: Performed By: #### UA, PREGU , UAMICAO ####[place] [address] [place], [place] [address] .neuabs on Neutrophil, Absolute 6.70 2.85-6.16 10 3/mcL High 8 [facility] ([place]) (61858) Comment: Performed By: #### CBC, ADIF F, ANEU ####[place] [id number]#### L IP, CMP, GFR ####[address] [address] .auto diff on 05-13 Basophils Auto #/vol 0.00 0.00-0.19 10 3/[facility] Normal 8 [facility] (Bld) [facility]) (28286) Comment: Performed By: #### CBC, ADIF F, ANEU ####[place] [id number]#### L IP, CMP, GFR ####[address] [address] Basophils/100 WBC Auto (d) 0.5 0.0-2.5 % Normal 0 05-13-2018 [facility]) (0000 0) Comment: Performed By: #### CBC, ADIF F, ANEU ####[place] [address]#### L IP, CMP, GFR ####[address] [address] Eosinophils 0.10 0.00-0.40 10 3/mcL Normal 05-13-2018 [facility] ([place]) (53129) Comment: Performed By: #### CBC, ADIF F, ANEU ####[address] [place] [address]#### L IP, CMP, GFR ####[place] [address] Eosinophils/100 leukocytes 0.8 0.0-7.0 % Normal [facility] ([place]) (0000 0) Comment: Performed By: #### CBC, ADIF F, ANEU ####[place] [address]#### L IP, CMP, GFR ####[place] [address] Lymphocytes 1.60 0.77-3.85 10 3/[facility] Normal 05-13-2018 [facility] ([place]) (99293) Comment: Performed By: #### CBC, ADIF F, ANEU ####[address] [place] [address]#### L IP, CMP, GFR ####[place] [address] Lymphocytes/100 leukocytes 18.0 10.0-50.0 % Normal [facility] ([place]) (35632) Comment: Performed By: #### CBC, ADIF F, ANEU ####[place] [address]#### L IP, CMP, GFR ####[place] [address] Monocytes 0.60 0.15-1.00 10 3/[facility] Normal 05-13-2018 [facility] ([place]) (86992) Comment: Performed By: #### CBC, ADIF F, ANEU ####[address] [place], [place] [address]#### L IP, CMP, GFR ####[address] [address] Monocytes/100 leukocytes 6.8 1.7-13.0 % Normal 05-13 [facility] ([place]) (0000 0) Comment: Performed By: #### CBC, ADIF F, ANEU ####[address] [address]#### L IP, CMP, GFR ####[address] [address] Neutrophils/100 WBC Auto 73.9 37.0-80.0 % Normal 05-13 [facility] (d) [facility] ([place]) (88159) Comment: Performed By: #### CBC, ADIF F, ANEU ####[address] [address]#### L IP, CMP, GFR ####[address] [address] urinalysis, routine on 2018-03-15 Bacteria LM.HPF #/area Few NS;RARE Abnormal [address] [place] [address] and (Urine sed) Irene Derek mora (43[address]) Comment: Performed By: #### GLUX #### Unless otherwise noted, all testing performed by [facility] l [address] [place] [address] CLIA: [id number] Molding Supervisor: Ismael vines M.D. Bilirubin,Urine Negative NEG;NEGATIVE Normal 03-15-2018 [facility] and Irene Kermit pitals ([address]) Comment: Performed By: #### GLUX #### Unless otherwise noted, all testing performed by [facility] l [address] [place] [address] CLIA: [id number] Molding Supervisor: Ismael vines M.D. Blood,Urine Small NEG;NEGATIVE Abnormal 03-15-2018 [facility] (06955) Comment: Performed By: #### GLUX #### Unless otherwise noted, all testing performed by [place] [address] CLIA: [id number] Molding Supervisor: Ismael vines M.D. Character Nom (U) Cloudy Normal 03-15-2018 [facility] (55767) Comment: Performed By: #### GLUX #### Unless otherwise noted, all testing performed by [place] [address] CLIA: [id number] Molding Supervisor: Ismael vines M.D. Color Nom (U) Yellow Normal 03-15-2018 [facility] (97058) Comment: Performed By: #### GLUX #### Unless otherwise noted, all testing performed by [place] [address] CLIA: [id number] Molding Supervisor: Ismael vines M.D. Glucose Ql (U) Negative NEG;NEGATIVE Normal 03-15-2018 [facility] (88577) Comment: Performed By: #### GLUX #### Unless otherwise noted, all testing performed by [place] [address] CLIA: [id number] Molding Supervisor: Ismael vines M.D. Ketone,Urine Negative NEG;NEGATIVE Normal 03-15-2018 [facility] (30587) Comment: Performed By: #### GLUX #### Unless otherwise noted, all testing performed by [facility] [address] [place] [address] CLIA: [id number] Molding Supervisor: Ismael vines M.D. Leuk.Esterase,Urine Large Negative Abnormal 03-15-2018 [facility] (21303) Comment: Performed By: #### GLUX #### Unless otherwise noted, all testing performed by [place] [address] CLIA: [id number] Molding Supervisor: Ismael vines M.D. Nitrite,Urine Negative NEG;NEGATIVE Normal 03-15-2018 [facility] (25586) Comment: Performed By: #### GLUX #### Unless otherwise noted, all testing performed by [place] [address] CLIA: [id number] Molding Supervisor: Ismael vines M.D. pH (U) 5.0 4.5-8.0 [pH] Normal 03-15-2018 [facility] (46905) Comment: Performed By: #### GLUX #### Unless otherwise noted, all testing performed by [place] [address] CLIA: [id number] Molding Supervisor: Ismael vines M.D. Protein mass conc Negative NEG;NEGATIVE mg/dL Normal [address] [place] [address] ([facility] ([address]) Comment: Performed By: #### GLUX #### Unless otherwise noted, all testing performed by [facility] [address] [place] [address] CLIA: [id number] Molding Supervisor: Ismael vines M.D. RBC,Urine 8 0-5 /HPF High 03-15-2018 [facility] (62980) Comment: Performed By: #### GLUX #### Unless otherwise noted, all testing performed by [place] [phone] CLIA: [id number] Molding Supervisor: Ismael vines M.D. Specific [place],Urine 1.015 1.003-1.029 Normal 03-15 [facility] (45799) Comment: Performed By: #### GLUX #### Unless otherwise noted, all testing performed by [place] [phone] CLIA: [id number] Molding Supervisor: Ismael vines M.D. Squamous Epithelial 11 0-40 /HPF Normal 03-15-2018 [facility] (35921) Comment: Performed By: #### GLUX #### Unless otherwise noted, all testing performed by [place] [phone] CLIA: [id number] Molding Supervisor: Ismael vines M.D. Urobilinogen,Urine < 2.0 <2 Normal 03-15-2018 [facility] (66899) Comment: Performed By: #### GLUX #### Unless otherwise noted, all testing performed by [place] [phone] CLIA: [id number] Molding Supervisor: Ismael vines M.D. WBC,Urine 46 0-5 /HPF High 03-15-2018 [facility] (12025) Comment: Performed By: #### GLUX #### Unless otherwise noted, all testing performed by [place] [phone] CLIA: [id number] Molding Supervisor: Ismael vines M.D. test,urine qual on 2018-03-15 HCG.beta subunit Negative Negative Normal 03-15-2018 [facility] ( test) [facility] ([address]65[facility] Comment: Result Comment: Rapid test p rocedural [...] Unless otherwise noted, all testing performed by [facility] l [address] [facility]. [place] [address] CLIA: [id number] Molding Supervisor: Ismael vines M.D. lipase on 2018-02-16 9 Lipase enzyme act/vol 288 73-393 U/L Normal 03-15-20 18 [facility] (98404) Comment: Performed By: #### GLUX #### Unless otherwise noted, all testing performed by [facility] l [address] [facility]. [place] [address] CLIA: [id number] Molding Supervisor: Ismael vines M.D. ed cardiac troponin-i on 2018-03-15 Troponin I.cardiac mass < 15 < 45 ng/mL Normal 2017 [facility] (90038) Comment: Result Comment: Elevation of troponin indicates [...] Unless otherwise noted, all testing performed by [facility] l [address] [place] [address] CLIA: [id number] Molding Supervisor: Ismael vines M.D. comprehensive metabolic panel on 2018-03-15 Albumin mass conc 3.8 3.2-5.2 g/dL Normal 03-15-2018 [facility] (84279) Comment: Performed By: #### GLUX #### Unless otherwise noted, all testing performed by [facility] l [address] [place] [address] CLIA: [id number] Molding Supervisor: Ismael vines M.D. ALP enzyme act/vol 66 40-150 U/L Normal 03-15-2018 [facility] (44567) Comment: Performed By: #### GLUX #### Unless otherwise noted, all testing performed by [facility] [address] [place] [address] CLIA: [id number] Molding Supervisor: Ismael vines M.D. ALT enzyme act/vol 56 14-65 U/L Normal 03-15-2018 [facility] (29906) Comment: Result Comment: This test re sult might be falsely depressed or falsely elevated on samples drawn from patients taking Sulfasalazine and Sulfapyridine. Venipuncture should occur pr ior to taking either of these drugs. Performed By: #### GLUX #### Unless otherwise noted, all testing performed by [facility] l [address] [place] [address] CLIA: [id number] Molding Supervisor: Ismael vines M.D. AST enzyme act/vol 51 0-45 U/L High 03-15-2018 [facility] (19318) Comment: Result Comment: This test re sult might be falsely depressed or falsely elevated on samples drawn from patients taking Sulfasalazine and Sulfapyridine. Venipuncture should occur pr ior to taking either of these drugs. Performed By: #### GLUX #### Unless otherwise noted, all testing performed by [place] [phone] CLIA: [id number] Molding Supervisor: Ismael vines M.D. Bilirubin mass conc 0.5 0.3-1.2 mg/dL Normal 03-15-2018 [facility] (07886) Comment: Performed By: #### GLUX #### Unless otherwise noted, all testing performed by [place] [phone] CLIA: [id number] Molding Supervisor: Ismael vines M.D. Calcium mass conc 9.7 8.4-10.2 mg/dL Normal 03-15-2018 [facility] (83372) Comment: Performed By: #### GLUX #### Unless otherwise noted, all testing performed by [place] [phone] CLIA: [id number] Molding Supervisor: Ismael vines M.D. Chloride molar conc 105 98-108 mmol/L Normal 03-15-2018 [facility] (20976) Comment: Performed By: #### GLUX #### Unless otherwise noted, all testing performed by [place] [phone] CLIA: [id number] Molding Supervisor: Ismael vines M.D. CO2 molar conc 26 21-32 mmol/L Normal 03-15-2018 [facility] (20310) Comment: Performed By: #### GLUX #### Unless otherwise noted, all testing performed by [place] [address] CLIA: [id number] Molding Supervisor: Ismael vines M.D. Creatinine mass conc 1.67 0.40-1.10 mg/dL High 8 [facility] (89767) Comment: Performed By: #### GLUX #### Unless otherwise noted, [facility] [address] [place] [address] CLIA: [id number] Molding Supervisor: Ismael vines M.D. GFR/1.73 sq M predicted 40 >60 ml/min/1.73sq.m Low 03-15-2018 [facility] and among blacks [facility] (32368) rate/area (S/P/Bld) Comment: Result Comment: Amer ican GFR Calc Performed By: #### GLUX #### Unless otherwise noted, all testing performed by [facility] l [address] [place] [address] CLIA: [id number] Molding Supervisor: Ismael vines M.D. GFR/1.73 sq M predicted 33 >60 ml/min/1.73sq.m Low 03-15-2018 [facility] among non-blacks [facility] vol rate/area (S/P/Bld) (57368) Comment: Result Comment: Non- GFR Calc eGFR [...] Unless otherwise noted, all testing performed by [facility] l [address] [place] [address] CLIA: [id number] Molding Supervisor: Ismael vines M.D. Glucose mass conc 88 70-99 mg/dL Normal 03-15-2018 [facility] (27592) Comment: Result Comment: This test re sult might be falsely depressed or falsely elevated on samples drawn from patients taking Sulfasalazine and Sulfapyridine. Venipuncture should occur pr ior to taking either of these drugs. Performed By: #### GLUX #### Unless otherwise noted, all testing performed by [facility] [address] [place] [address] CLIA: [id number] Molding Supervisor: Ismael vines M.D. Potassium molar conc 4.4 3.5-5.1 mmol/L Normal 8 [facility] (45149) Comment: Performed By: #### GLUX #### Unless otherwise noted, all testing performed by [facility] [address] [place] [address] CLIA: [id number] Molding Supervisor: Ismael vines M.D. Protein mass conc 7.3 6.0-8.0 g/dL Normal 03-15-2018 [facility] (47766) Comment: Performed By: #### GLUX #### Unless otherwise noted, all testing performed by [facility] [address] [place] [address] CLIA: [id number] Molding Supervisor: Ismael vines M.D. Sodium molar conc 137 135-145 mmol/L Normal 03-15-2018 [facility] (69404) Comment: Performed By: #### GLUX #### Unless otherwise noted, all testing performed by [facility] [address] [place] [address] CLIA: [id number] Molding Supervisor: Ismael vines M.D. Urea nitrogen mass conc 30 8-25 mg/dL High 2017 [facility] (25422) Comment: Performed By: #### GLUX #### Unless otherwise noted, all testing performed by [facility] l [address] [place] [address] CLIA: [id number] Molding Supervisor: Ismael vines M.D. cbc with diff on 04-03-29 Basophils #/vol (Bld) 0.1 0-0.2 K/mcL Normal 03-15-20 18 [facility] (31901) Comment: Performed By: #### CBCDIF, E DCTNI, CMET, LIPASE #### Unless otherwise noted, all testing performed by [place] [address] CLIA: [id number] Molding Supervisor: Ismael vines M.D. Basophils/100 WBC (Bld) 1.1 % Normal 2017 [facility] (13472) Comment: Performed By: #### CBCDIF, E DCTNI, CMET, LIPASE #### Unless otherwise noted, all testing performed by [place] [address] CLIA: [id number] Molding Supervisor: Ismael vines M.D. Eosinophils #/vol (Bld) 0.2 0-0.5 K/mcL Normal 2017 [facility] (83225) Comment: Performed By: #### CBCDIF, E DCTNI, CMET, LIPASE #### Unless otherwise noted, all testing performed by [facility] [address] [place] [address] CLIA: [id number] Molding Supervisor: Ismael vines M.D. Eosinophils/100 WBC (Bld) 3.2 % Normal - [facility] (05095) Comment: Performed By: #### CBCDIF, E DCTNI, CMET, LIPASE #### Unless otherwise noted, all testing performed by [facility] l [address] [place] [address] CLIA: [id number] Molding Supervisor: Ismael vines M.D. Erythrocyte distribution 13.4 10.0-14.4 % Normal 03-15 [facility] and width [facility] (RBC) [facility] (96216) Comment: Performed By: #### CBCDIF, E DCTNI, CMET, LIPASE #### Unless otherwise noted, all testing performed by [facility] l [address] [place] [address] CLIA: [id number] Molding Supervisor: Ismael vines M.D. Hematocrit Volume Fraction 47.8 34.4-44.8 % High [facility] and ([facility]) [facility] (47705) Comment: Performed By: #### CBCDIF, E DCTNI, CMET, LIPASE #### Unless otherwise noted, all testing performed by [facility] l [address] [place] [address] CLIA: [id number] Molding Supervisor: Ismael vines M.D. Hemoglobin mass conc 15.7 11.6-15.4 g/dL High 8 [facility] and ([facility]) [facility] (64169) Comment: Performed By: #### CBCDIF, E DCTNI, CMET, LIPASE #### Unless otherwise noted, all testing performed by [facility] l [address] [place] [address] CLIA: [id number] Molding Supervisor: Ismael vines M.D. Lymphocytes #/vol (Bld) 1.4 1.0-3.7 K/mcL Normal 2017 [facility] (48831) Comment: Performed By: #### CBCDIF, E DCTNI, CMET, LIPASE #### Unless otherwise noted, all testing performed by [facility] l [address] [place] [address] CLIA: [id number] Molding Supervisor: Ismael vines M.D. Lymphocytes/100 WBC (Bld) 24.7 % Normal 02-16 [facility] (00553) Comment: Performed By: #### CBCDIF, E DCTNI, CMET, LIPASE #### Unless otherwise noted, all testing performed by [place] [address] CLIA: [id number] Molding Supervisor: Ismael vines M.D. MCH Entitic mass (RBC) 29.6 27.9-33.9 pg Normal 018 [facility] (21678) Comment: Performed By: #### CBCDIF, E DCTNI, CMET, LIPASE #### Unless otherwise noted, all testing performed by [place] [address] CLIA: [id number] Molding Supervisor: Ismael vines M.D. MCHC mass conc (RBC) 32.8 33.1-35.1 g/dL Low 8 [facility] (87622) Comment: Performed By: #### CBCDIF, E DCTNI, CMET, LIPASE #### Unless otherwise noted, all testing performed by [facility] [address] [place] [address] CLIA: [id number] Molding Supervisor: Ismael vines M.D. MCV Entitic volume 90.5 82.6-98.9 FL Normal 03-15-2018 [facility] and (RBC) [facility] (74061) Comment: Performed By: #### CBCDIF, E DCTNI, CMET, LIPASE #### Unless otherwise noted, all testing performed by [place] [address] CLIA: [id number] Molding Supervisor: Ismael vines M.D. Metamyelocytes/100 WBC (Bld) 2.2 0 % High 0 03-15-2018 [facility] (64492) Comment: Performed By: #### CBCDIF, E DCTNI, CMET, LIPASE #### Unless otherwise noted, all testing performed by [place] [address] CLIA: [id number] Molding Supervisor: Ismael vines M.D. Monocytes #/vol (Bld) 0.2 0.1-0.6 K/mcL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 aboutAssisted living. At this time she lives with her cousin and is home alone a lot. It is also causing more stress because of declining relationship with her cousin, they are arguing a lot. document control manager is also concerned with patient's medication [...] Medical History: Diagnosis Date ? Acquired thrombocytopenia ([facility]) [facility]/Darren Shaikh ? Acute abdominal pain 11/17/2018 [facility] Stacy ALEXIS,Ac Escobar ? Acute bronchitis 12/21/2018 Info Gained From: [facility] ED report --- Bob Nye MD ? Acute kidney injury (HCC) 05/22/2018 [facility]/Jonatan Chiu DO ? Acute UTI 10/14/2018 [facility]/Moi De La Cruz MD ? Anxiety ? Bronchospasm 12/21/2018 Info Gained From: [facility] ED report --- Bob Nye MD ? Calcaneal spur of right foot 2017 Documented on x-ray ? Chronic kidney disease, stage III (moderate) ([facility]) 2000 ? Congestive heart failure (CHF) ([facility]) [facility]/Darren Shaikh ? Dehydration 12/12/2018 Info Gained From: [facility] ED --- Shilpa Jensen ? Depression ? Epilepsy ([facility]) 08/06/2011 [facility]- Dr. Chopra ? Epilepsy ([facility]) 1993 ? Facet degeneration of lumbar region 10/14/2018 [facility]/Moi De La Cruz MD Mild facet degenerative changes seen in the lower lumbar spine ? Fatty liver [facility]/Joe Mendieta MD Mild fibrofatty changes of the liver ? Fluid collection (edema) in the arms, legs, hands and feet 03/09/2018 Dr valentina Chopra ? Gastritis determined by endoscopy 12/29/2016 Dr. GonzalezZyitre-Ebnqygddg-fjkxpudpvjhyg nonbleeding with biopsy ? Hepatic steatosis [facility]/Heidy Jara MD Mild ? Hiatal hernia 12/29/[address] Lobo grade 4 ? Hypercholesterolemia [facility]/Jonatan Chiu DO ? Hypertension 2000 2000-present ? Insomnia [facility]/Darren Shaikh ? Kidney stone [facility]/Darren Shaikh ? Low back pain 10/14/2018 [facility]/Moi De La Cruz MD ? Lung nodule 12/15/2017 0.5 cm pleural based nodule in right middle lobe. Mild linear atelectasis ? [facility]Darren [facility] ? Rectus diastasis [facility]/Heidy Jara MD Present with small wide necked perumbical ventral containing fat. ? Second degree burn of foot 04/23/2018 Right Foot - [facility] ? Seizure (HCC) [facility]/Jono ALEXIS, Saulius ? Sleep apnea ? Stroke (HCC) 2001 mild ? Tremor ? Upper abdominal pain 12/03/2018 Info Gained From: /[facility]/R Report --- Murray ALEXIS,Ac Escobar Past Surgical History: Procedure Laterality Date ? Conner pH capsule placement 02/01/2017 Dr. Lobo ? BREAST REDUCTION 2000 bilateral ? [facility]-nonperforating gastritis ? ESOPHAGEAL [...] She had a meeting on Wednesday with Development Administrator and assisted living and they are waiting to hear back to see if she qualifies to live in the [facility]. Tremors: Patient continues to be off of the Valproic acid until she is seen by Neurology in [facility],Dr. Chopra, her apt is 03/16/2019. She [...] has been having an increase in headaches. Development Administrator is making notes of all of these symptoms so she can let the neurologist know at her apt. The following portions of the patient's history were reviewed and updated as appropriate: allergies,current medications, past family history, past medical history, past social history, past surgical history and problem list. Past Medical History: Diagnosis Date ? Acquired thrombocytopenia ([facility]) [facility]/Darren Shaikh ? Acute kidney injury (HCC) 05/22/2018 [facility]/Jonatan Chiu DO ? Anxiety ? Calcaneal spur of right foot 2017 Documented on x-ray ? Chronic kidney disease, stage III (moderate) ([facility]) 2000 ? Congestive heart failure (CHF) ([facility]) [facility]/Darren Shaikh ? Depression ? Epilepsy ([facility]) 08/06/2011 [facility]- Dr. Chopra ? Epilepsy ([facility]) 1993 ? Facet degeneration of lumbar region 10/14/2018 [facility]/Jono ALEXIS, Moi Mild facet degenerative changes seen in the lower lumbar spine ? Fatty liver [facility]/Joe Mendieta MD Mild fibrofatty changes of the liver ? Fluid collection (edema) in the arms, legs, hands and feet 03/09/2018 Dr valentina Chopra ? Gastritis determined by endoscopy 12/29/2016 Dr. LeeHyngcw-Hzgwoxzet-yqklakqitbdvp nonbleeding with biopsy ? Hepatic steatosis [facility]/Heidy Jara MD Mild ? Hiatal hernia 12/29/[address] Lobo grade 4 ? Hypercholesterolemia [facility]/Jonatan Chiu DO ? Hypertension 2001 2001-present ? Insomnia [facility]/Darren Shaikh ? Kidney stone [facility]/Darren Shaikh ? Lung nodule 12/15/2017 0.5 cm pleural based nodule in right middle lobe. Mild linear atelectasis ? Mitral valve prolapse [facility]/Darren Shaikh ? Rectus diastasis [facility]/Heidy Jara MD Present with small wide necked perumbical ventral containing fat. ? Second degree burn of foot 04/23/2018 Right Foot - [facility] ? Sleep apnea ? Stroke (HCC) 2001 mild ? Tremor Past Surgical History: Procedure Laterality Date ? Conner pH capsule placement 02/01/2017 Dr. Lobo ? BREAST REDUCTION 2000 bilateral ? [facility]-nonperforating gastritis ? ESOPHAGEAL [...] ED/admit notes faxed To Neuro at # [phone] Pre-auth Amandeep Aldrich prior auth. received until [...] Via: Telephone ? Patient was Discharged From [facility] ? Discharge Diagnosis: HTN, anxiety, seizures [...] 03/15/19 to ED stating seizures. Transferred to [facility] observation. Describes turned to change her clothes [...] Seek Emergent Care with EMS/911/ED, When to License Registration Examiner and As Directed by NEUROPSYCHOLOGY SERVICE DIRECTOR/Surgeon/Specialist Additional Information Discussed: Yes Providers/Clinics: Home Health Care Arrangements Initiated: No Follow up with Valentina Chopra MD Specialty: Neurology [address] [place] [address] Future Appointments Date Time Provider Department Center [...] - 03/31/2019 2:44 PM EDT SS from [facility] phoned, beginning evaluation for assisted living. [...] Chest pain at rest Nedra Brewer [facility] RamiroJaninaCHAYA [address] [place], [place] [address] [place], [place] Phone: [phone] Phone: Fax: Status Reason Specialty Diagnoses / Referred By Referred To Procedures Contact Contact Pending Review Cardiology Diagnoses Chest pain at rest Mattie Hayden Procedures Echocardiogram complete MD Ari[address] [place] [address] Status Reason Specialty Diagnoses / Referred By Referred To Procedures Contact Contact Pending Review Radiology Diagnoses Chest pain at rest Mattie Hayden Procedures NM Myocardial Perfusion Multiple SPECT MD [address] [place] [address] Status Reason Specialty Diagnoses / Referred By Contact Refe rred To Contact Procedures Closed Cardiology Diagnoses Essential hypertension Chronic kidney disease, stage III (moderate) (HCC) Chest pain at rest Nedra SanchesnMattieJanina, CHAYA Krishnan MD [address] [place] [address] [place] [address] Phone: Fax: Discharge Instructions Meena Alicea RN [...] Log into your personal health record on [email or web address] and enter M599 in the Education box to learn more about Seizure: Care Instructions. Current as of: March 20, 2018 Content Version: 12.0 ? [id number] [employer]. Care instructions adapted under license by your healthcare professional. If you have questions about a medical condition or this instruction, always ask your healthcare professional. [employer] disclaims any warranty or liability for your [...] BE BASED ON THE PRIMARY CLINICAL RECORDS. [employer] provides no warranty or guarantee of the accuracy or completeness of information in this document. UNRECOGNIZED CONTENT PROVIDED BELOW FOR UNRECOGNIZED SECTION INFORMATION SOURCE DATE CREATED AUTHOR AUTHOR'S ORGANIZATIO N 12/06/2018 [facility] DATE CREATED AUTHOR AUTHOR'S ORGANIZATIO N 04/12/2018 [facility] DATE CREATED AUTHOR AUTHOR'S ORGANIZATIO N 04/12/2018 [facility] DATE CREATED AUTHOR AUTHOR'S ORGANIZATIO N 04/22/2018 [facility] DATE CREATED AUTHOR AUTHOR'S ORGANIZATIO N 05/15/2018 [facility] DATE CREATED AUTHOR AUTHOR'S ORGANIZATIO N 12/25/2018 [facility] DATE CREATED AUTHOR AUTHOR'S ORGANIZATIO N 05/[facility] DATE CREATED AUTHOR AUTHOR'S ORGANIZATIO N 07/20/2019 [facility] DATE CREATED AUTHOR AUTHOR'S ORGANIZATIO N 12/02/2019 [facility] DATE CREATED AUTHOR AUTHOR'S ORGANIZATIO N 12/07/2019 [facility] DATE CREATED AUTHOR AUTHOR'S ORGANIZATIO N 08/02/2020 [email or web address] UNRECOGNIZED CONTENT PROVIDED BELOW FOR UNRECOGNIZED SECTION [...] and allow cool down until at least prison back to the pre exercise hear rate. [...] and allow cool down until at least prison back to the pre exercise hear rate. [...] to consider following up with the general nanofabrication specialist.in this encounterAssessment & Plan Note - [...] your blood pressure was elevated at the nursing associate's office today because you had not taking your Cardura as the nursing associate thought. Your blood pressure has decreased since [...] include nonsteroidals. The nonsteroidal class includes the atpq-prg-nwrtbnd medications of Motrin, Advil, Aleve, ibuprofen, Naprosyn as well as all the prescription nonsteroidals. Typically we follow individuals with chronic kidney disease a minimum of 2-3 times a year. As the kidney disease progresses we monitor closer. Typically start with a minimum of twice a year lab work and increase to every 3 months if indicated. Referral to a kidney specialist or senior solutions consultant is obtained with sudden declining kidney function, [...] been out of bed since arriving at [facility]. She lives with her cousin. She further [...] toxicity. She follows with Dr. Gillette from [place]. She was also using Keppra 750 mg [...] to 1000 mg twice a day. 3. Powell seizure precautions. 4. Monitor frequency alcohol seizures. [...] Portions of this chart was created using [employer] voice recognition software. Occasional wrong-word or sound-like [...] of the other 1mg was witnessed by Veornika Al RN. Meena Way RN - 03/16/2019 9:05 AM EDTEli in Pharmacy has agreed to tube up medications that are related to seizure since this nurse has no access to them. Meena Way RN - 03/16/2019 9:02 AM EDTThis patient has alerted the aideJessica that she is feeling jumpy and that she feels a seizure coming. Meena Way RN - 03/16/2019 7:58 AM EDTTlabette health nurse sent CD from [place] with X-Ray information with Mattie from [place] per instructions from [facility] to be scanned into patient's record. Meena Way RN - 03/16/2019 7:41 AM EDTPatikelechi's medications prior to admission are present in the med room in a cooler and need to be reviewed with this nurse and patient. There are reportedly (per patient) medications therein that she is allergic to. Per machinist 2nd shift, admission is not complete Meena Way RN - 03/16/2019 7:39 AM EDTPatikelechi is awake and alert, sitting in bed and able to express her needs. She reports that the tremors she is having at bedside report time are her baseline. No seizure activity reported. She also reports that she will be going to [facility] in [place] soon. documented in this encounter UNRECOGNIZED CONTENT [...] hypertension Chronic kidney disease, stage III (moderate) ([facility]) Chest pain at rest Spring, Mattie Chen, NEUROPSYCHOLOGY SERVICE DIRECTOR MD [address] [place], [place] [address] [place] [address] Phone: Fax: Reason Comments Hypertension Sore Throat X 3 days Status Reason Specialty Diagnoses / Referred By Referred To Procedures Contact Contact Pending Review Radiology Diagnoses Chest pain at rest Mattie Hayden Procedures NM Myocardial Perfusion Study Single - Stress Only NM Myocardial Perfusion Multiple SPECT MD [address] [place] [address] Reason Comments Transition Of Care Pt reports having to high le nlison depakote D/C at this time, then had a seizure Reason Comments Follow-up seizures reprots no issues o r falls Status Reason Specialty Diagnoses / Procedures Referred By C ontact Referred To Contact Diagnoses Seizure Reason Comments Transition Of Care INitial outreach UNRECOGNIZED CONTENT PROVIDED BELOW FOR UNRECOGNIZED SECTION Procedure Notes Aleksey Longoria MD - 03/16/2019 4:18 PM EDTAssociated Order(s): EEG (STANDARD) [facility] EEG Report Reason for EEG: Seizures. [...] IP CONSULT TO NEUROLOGY Neurology Inpatient Consult [facility] 03/16/2019 Patient: Reema Motta Date of : 1975 (43 y.o.) Referring Provider: Refer to consult order in electronic medical record PCP: Nedra Brewer CNP ASSESSMENT: 43 y.o. female presented to [facility] on 03/16/2019 with seizures. PLAN: Seizure [...] toxicity. She follows with Dr. Gillette from [place]. She was also using Keppra 750 mg [...] to 1000 mg twice a day. 3. Powell seizure precautions. 4. Monitor frequency alcohol seizures. [...] Portions of this chart was created using [employer] voice recognition software. Occasional wrong-word or sound-like [...] This occurred after she was discharged from [facility] where her Depakote was discontinued because [...] Medical History: Diagnosis Date ? Acquired thrombocytopenia ([facility]) [facility]/Darren Shaikh ? Acute kidney injury ([facility]) 05/22/2018 [facility]/Jonatan Chiu DO ? Anxiety ? Calcaneal spur of right foot 2017 Documented on x-ray ? Chronic kidney disease, stage III (moderate) ([facility]) 2000 ? Congestive heart failure (CHF) ([facility]) [facility]/Darren Shaikh ? Depression ? Epilepsy ([facility]) 08/06/2011 [facility]- Dr. Chopra ? Epilepsy ([facility]) 1993 ? Facet degeneration of lumbar region 10/14/2018 [facility]/Jono ALEXIS, Saulius Mild facet degenerative changes seen in the lower lumbar spine ? Fatty liver [facility]/Joe Mendieta MD Mild fibrofatty changes of the liver ? Fluid collection (edema) in the arms, legs, hands and feet 03/09/2018 Dr valentina Chopra ? Gastritis determined by endoscopy 12/29/2016 Dr. GonzalezAehtxy-Taqoruvkk-qkwjivjxcxlxl nonbleeding with biopsy ? Hepatic steatosis [facility]/Heidy Jara MD Mild ? Hiatal hernia 12/29/[address] Lobo grade 4 ? Hypercholesterolemia [facility]/Jonatan Chiu DO ? Hypertension 2000 2000-present ? Insomnia [facility]/Darren Shaikh ? Kidney stone [facility]/Darren Shaikh ? Lung nodule 12/15/2017 0.5 cm pleural based nodule in right middle lobe. Mild linear atelectasis ? Mitral valve prolapse [facility]/Darren Shaikh ? Motor seizure ([facility]) 03/16/2019 INFO GAINED FROM: /[facility] ED VISIT --- LOZANO DO,CAREN ? Rectus diastasis [facility]/Heidy Jara MD Present with small wide necked perumbical ventral containing fat. ? Second degree burn of foot 04/23/2018 Right Foot - [facility] ? Sleep apnea ? Stroke (HCC) 2001 mild ? Tremor Past Surgical History: Procedure Laterality Date ? Conner pH capsule placement 02/01/2017 Dr. Lobo ? BREAST REDUCTION 2000 bilateral ? EGD 12/29/2016 Dr. Lobo-[facility]-grade 4 hiatal hernia-nonperforating gastritis ? ESOPHAGEAL MANOMETRY [...] file Gets together: Not on file Attends tenriism service: Not on file Active member of [...] Oral Daily ? venlafaxine 37.5 mg Oral [facility] PRN Medications: senna OBJECTIVE: Physical Examination: BP 138/79 Pulse 73 Temp 98.6 ?F (37 ?C) (Oral) Resp 14 Ht 4' 8 Wt 68.5 kg (151 lb) EuL663% BMI 33.85 kg/m? Patient is awake and [...]
== END 2020-03-30 13:22 | disposition home or self-care (01) ==
PROVIDERS: Emergency Provider Emergency Medicine
DX: G40.909 Epilepsy, unspecified, not intractable, without status epilepticus (principal); I10 Essential (primary) hypertension; E78.5 Hyperlipidemia, unspecified; Z79.899 Other long term (current) drug therapy
CPT/HCPCS: 99284

== ENCOUNTER 2020-08-05 22:16 | Emergency (ER) | payer MEDICAID, SELFPAY ==
[2020-08-05 22:17] VITALS: BP 119/81; PULSE 100; RESP 16; TEMP 36.9; O2SAT 99; BMI 34.5
--- NOTE | 2020-08-05 23:56 | ED.VIS.GEN ---
History of Present Illness Chief Complaint: Cough Informant: Patient Narrative: Patient presents with 2 to 3-day history of cough congestion low-grade fever and bilateral ear pain. She has a history of hypertension, epilepsy tremors insomnia and significant anxiety. She lives in an assisted living home. She has no dysuria or frequency she has no abdominal pain she has no rash she has no back pain. Past Medical History - Allergies and Home Meds Allergies/Adverse Reactions: Allergies acetaminophen [From Vicodin] Allergy (Verified 03/30/20 10:49) Rash erythromycin base [Erythromycin Base] Allergy (Verified 03/30/20 10:49) Rash hydrocodone bitartrate [From Vicodin] Allergy (Verified 03/30/20 10:49) Rash hydromorphone [From Dilaudid] Allergy (Verified 03/30/20 10:49) Rash Penicillins Allergy (Verified 03/30/20 10:49) Rash promethazine HCl [From Phenergan] Allergy (Verified 03/30/20 10:49) Vomiting tramadol Allergy (Verified 03/30/20 10:49) Rash codeine Adverse Reaction (Verified 03/30/20 10:49) Vomiting morphine Adverse Reaction (Verified 03/30/20 10:49) Vomiting ondansetron HCl [From Zofran] Adverse Reaction (Verified 03/30/20 10:49) Vomiting Primary Care Physician: Care Physician,No Primary [Primary Care Provider] - Past Medical History: - - Gout, hypertension, epilepsy, GERD, anxiety, chronic tremors, insomnia Surgical History: no surgical history Smoking Status: Never smoker Review of Systems All systems negative except as indicated General: Denies: Fever ENT: Reports: Bilateral ear pain, Rhinorrhea, Sore throat Cardiovascular: Denies: Chest pain, Palpitations Respiratory: Reports: Cough. Denies: Dyspnea Gastrointestinal: Denies: Abdominal pain, Nausea, Vomiting Genitourinary: Denies: Dysuria, Hematuria, Frequency Musculoskeletal: Denies: Myalgias, Arthralgias Skin: Denies: Rash Neurological: Denies: Headache, Weakness Psych: Reports: Anxiety Hematologic: Denies: Easy bruising, Easy bleeding Allergy: Denies: Uticaria Physical Exam Vital Signs/Narrative: Vital Signs Temp Pulse Resp BP Pulse Ox 08/05/20 22:17 98.5 F 100 16 119/81 H 99 General: - - Patient appears relatively comfortable in bed, she has an active tremor only when she moves her arms Head: Normocephalic Eyes: Perrl ENT: Moist mucous membranes, - - Bilateral TM erythema, there is rhinorrhea and quite a bit of congestion. There is postnasal drip. Normal soft palate normal voice Neck: Supple Cardiovascular: Regular rate, Regular rhythm Respiratory: No distress, CTA bilaterally Abdomen: Soft, Nontender Back: Nontender, Normal Inspection. Negative for: CVA tenderness Extremities: No edema Skin: Normal color, No rash Neurological: Alert, Normal Strength, Normal Sensation Diagnostic/Tx/Re-eval - Medical Decision Making Patient has an unremarkable work-up. She has an upper respiratory infection including some otitis media I will treat her as such. ED Disposition - Plan for ED Patient: Disposition: Home or Assisted Living Diagnosis: Upper respiratory infection Instructions: ED Upper Resp Infec Abx Tx Prescriptions: Doxycycline 100 mg PO BID #19 cap Prescription Printed Referrals: Care Physician,No Primary [Primary Care Provider] - 3-5 Days
--- NOTE | 2020-08-06 00:03 | RAD_ITS ---
STUDY: X-RAY CHEST REASON FOR EXAM: Female, 44 years old. COUGH X 1 DAY TECHNIQUE: Single AP portable view of the chest. COMPARISON: 03/29/2020 FINDINGS: There are superimposed monitor leads. The lungs are clear and expanded. There is no demonstrated pleural abnormality. Normal size heart. Normal mediastinum and sully. Normal visualized pulmonary arteries. Normal visualized aortic arch and descending thoracic aorta. Normal visualized thoracic spine. Normal visualized ribs, clavicles, and shoulders. Circular radiopaque density of small rings at the gastroesophageal junction is stable. RAD/Chest 1 View (Portable) IMPRESSION: No acute cardiopulmonary disease. No significant interval change. Electronically Signed: Cathi Roca MD at 1:15 EDT , Service support ,
[2020-08-06 00:36] VITALS: BP 147/89; PULSE 91; RESP 20; O2SAT 96
[2020-08-06 02:01] LABS: Absolute Lymphocyte Count 1.07 X10^3/uL (0.83-4.51); Basophil# 0.02 X10^3/uL; Basophil% 0.3 % (0-1); Eosinophil# 0.06 X10^3/uL; Eosinophils% 0.9 % (0-5); Hematocrit 38.9 % (37-47); Hemoglobin 12.7 g/dL (12.0-15.0); Lymphocyte # 1.07 X10^3/ul (4.0); Lymphocyte % 15.6 % (19-41); Mean Corp Hgb Conc 32.6 g/dL (32-36); Mean Corpuscular Hgb 30.5 pg (27.0-32.0); Mean Corpuscular Volume 93.5 fL (81-99); Monocyte# 0.66 X10^3/uL; Monocyte% 9.6 % (0-10); NRBC Flagged by Analyzer 0 % (0-5); Neutrophil # 4.95 X10^3/uL (2.7-7.7); Neutrophil % 72.3 % (47-70); POSITIVE COUNT YES; Platelet Count 80 K/mm3 (150-450); RBC Distribution Width CV 13.3 % (11.6-14.6); RBC Distribution Width SD 45.2 fl (35.1-43.9); Red Blood Count 4.16 M/mm3 (4.2-5.4); White Blood Count 6.9 K/mm3 (4.4-11.0)
[2020-08-06] MEDS: LORazepam 1 MG Tablet 2 MG PO (02:02)
[2020-08-06 02:05] VITALS: BP 136/74; PULSE 101; RESP 22
[2020-08-06 02:21] LABS: AST(SGOT) 13 U/L (15-37); Alanine Aminotransfer ALT/SGPT 10 U/L (13-56); Albumin, Serum 3.2 g/dL (3.2-5.0); Alkaline Phosphatase 55 U/L (45-117); Anion Gap 5 (5-15); BUN 13 mg/dL (7-18); BUN/Creat Ratio 11.4 RATIO (10-20); Calcium,Total 8.4 mg/dL (8.5-10.1); Chloride 102 mmol/L (98-107); Creatinine, Serum 1.14 mg/dL (0.55-1.02); EST Glomerular Filtration Rate 54 mL/min (>60); Est Glom Filt Rate - Afr Amer 66 mL/min (>60); Globulin 3.2 g/dL (2.2-4.2); Glucose 94 mg/dL (74-106); Potassium 3.8 mmol/L (3.5-5.1); Protein, Total 6.4 g/dL (6.4-8.2); Sodium Level 137 mmol/L (136-145)
[2020-08-06] MEDS: Doxycycline 100 MG CAPSULE PO (03:05)
--- NOTE | 2020-08-06 03:30 | ED.RN ---
This nurse called [facility] to get the pt a ride home, [facility] said they don't have night time transport. will try to call physicians for transport.
[2020-08-06 03:31] VITALS: BP 107/84; PULSE 87; RESP 17; O2SAT 96
--- NOTE | 2020-08-06 04:17 | ED.RN ---
PT UNABLE TO GIVE URINE SAMPLE, AWARE.
--- NOTE | 2020-08-06 04:19 | ED.RN ---
UNABLE TO GET MD LORI AWARE. PT D/C.
== END 2020-08-06 04:10 | disposition home or self-care (01) ==
PROVIDERS: Emergency Provider Emergency Medicine
DX: J06.9 Acute upper respiratory infection, unspecified (principal); G40.909 Epilepsy, unspecified, not intractable, without status epilepticus; I10 Essential (primary) hypertension; K21.9 Gastro-esophageal reflux disease without esophagitis
CPT/HCPCS: 36415; 71045; 80053; 85025; 87635; 99283; U0003

== ENCOUNTER 2020-08-13 18:35 | Emergency (ER) | payer MEDICAID, SELFPAY ==
[2020-08-13 18:41] VITALS: BP 105/68; PULSE 84; RESP 18; TEMP 37.1; O2SAT 96; BMI 35.9
--- NOTE | 2020-08-13 18:54 | CT_ITS ---
STUDY: CT BRAIN WITHOUT CONTRAST REASON FOR EXAM: Female, 44 years old. Dizziness, confusion, nausea/vomiting RADIATION DOSAGE (If Supplied By Facility): CTDIvol = ( 44.99 ) mGy, DLP = ( 779.24 ) mGycm TECHNIQUE: Transaxial CT imaging of the brain was performed without administration of intravenous contrast material. Individualized dose optimization techniques were used for this CT. COMPARISON: 03/05/2020 FINDINGS: Normal soft tissue structures. Normal calvarium. Normal size ventricles and extra-axial spaces for the patient''s age. Mild periventricular white matter ischemic changes.. Hypoattenuated density in left frontal lobe most likely representing old infarct Normal basal ganglia and thalami. Normal brainstem. Normal cerebellum. There is no intracranial hemorrhage. There are no findings of an acute ischemic infarction. Mucous retention cyst within the maxillary sinus bilaterally and mild mucosal thickening of the sphenoid sinus No significant change since prior exam CT/Brain/Head without Contrast IMPRESSION: Periventricular white matter ischemic change. 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 No evidence for acute bleed. If concern for acute infarct MRI recommended. Electronically Signed: Ac Vanegas MD at 19:52 EDT , Service support ,
--- NOTE | 2020-08-13 18:54 | EKG12_ITS ---
Test Reason : DIZZY Blood Pressure : / mmHG Vent. Rate : 077 BPM Atrial Rate : 077 BPM P-R Int : 152 ms QRS Dur : 084 ms QT Int : 412 ms P-R-T Axes : 019 038 020 degrees QTc Int : 466 ms Normal sinus rhythm Normal ECG Confirmed by JUAN ALEXIS, SHREYA ([id number]), image editor JERMAINE BIRMINGHAM ([id number]) on 08/15/2020 9:08:29 AM Referred By: SANDEEP Confirmed By:SHREYA MARTINEZ MD
--- NOTE | 2020-08-13 19:06 | ED.VIS.GEN ---
History of Present Illness Chief Complaint: Dizziness Informant: Patient Onset: Today Context: Gradual Onset Timing: Continuous Current Severity: Moderate Maximum Severity: Severe Narrative: The patient is a 44-year-old female with medical history significant for seizure disorder, anxiety, and fibromyalgia the presents to the emergency department with dizziness, nausea, and vomiting. The patient states the symptoms began today. She states that she would open her eyes or move her head, she would feel dizzy. She states that shortly thereafter, she began to have nausea and some vomiting. She denies fevers or chills. She states she does feel unsteady on her feet. She has been compliant with her seizure medication. She states there is been no recent change in dosing. She denies headache or visual change. She has no history of stroke. Prior similar symptoms: No Recent Illness/Hospitalization: No Past Medical History - Allergies and Home Meds Allergies/Adverse Reactions: Allergies acetaminophen [From Vicodin] Allergy (Verified 08/13/20 18:43) Rash erythromycin base [Erythromycin Base] Allergy (Verified 08/13/20 18:43) Rash hydrocodone bitartrate [From Vicodin] Allergy (Verified 08/13/20 18:43) Rash hydromorphone [From Dilaudid] Allergy (Verified 08/13/20 18:43) Rash Penicillins Allergy (Verified 08/13/20 18:43) Rash promethazine HCl [From Phenergan] Allergy (Verified 08/13/20 18:43) Vomiting tramadol Allergy (Verified 08/13/20 18:43) Rash codeine Adverse Reaction (Verified 08/13/20 18:43) Vomiting morphine Adverse Reaction (Verified 08/13/20 18:43) Vomiting ondansetron HCl [From Zofran] Adverse Reaction (Verified 08/13/20 18:43) Vomiting Primary Care Physician: Care Physician,No Primary [Primary Care Provider] - Prior records reviewed: Yes Past Medical History: - - Seizure disorder, hypertension Surgical History: no surgical history Smoking Status: Never smoker Review of Systems General: Denies: Chills, Fever, Sweats Eyes: Denies: Visual changes - bilaterally, Diplopia ENT: Denies: Rhinorrhea, Sore throat Cardiovascular: Denies: Chest pain, Palpitations Respiratory: Denies: Dyspnea, Cough, Dyspnea on exertion Gastrointestinal: Reports: Nausea, Vomiting. Denies: Abdominal pain, Diarrhea, Melena, Hematochezia Genitourinary: Denies: Dysuria, Hematuria, Frequency Musculoskeletal: Denies: Back pain, Extremity Pain Skin: Denies: Rash, Wounds Neurological: Denies: Headache, Weakness, Numbness Physical Exam Vital Signs/Narrative: Vital Signs Temp Pulse Resp BP Pulse Ox 08/13/20 18:41 98.8 F 84 18 105/68 96 Inital Vital Signs reviewed: Yes General: Well nourished, Well developed, No Acute Distress Head: Normocephalic, Atraumatic Eyes: Perrl, EOMI ENT: Moist mucous membranes, No rhinorrhea Neck: Supple, Nontender Cardiovascular: Regular rate, Regular rhythm, No murmurs Respiratory: No distress, CTA bilaterally, Chest nontender Abdomen: Soft, Nontender, Nondistended, Normal bowel sounds Back: Nontender, Normal Inspection Extremities: Nontender, No edema Skin: Normal color, No rash Neurological: Alert, Oriented x3, Cranial nerves II-XII grossly intact, Normal Strength, Normal Sensation Psychological: Normal affect, Normal Mood Diagnostic/Tx/Re-eval Clinical Impression(s) from Imaging Studies Brain CT 08/13/20 18:54 IMPRESSION: Periventricular white matter ischemic change. 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 No evidence for acute bleed. If concern for acute infarct MRI recommended. Electronically Signed: Ac Vanegas MD at 19:52 EDT , Service support , Abnormal Lab Results 08/13/20 08/13/20 08/13/20 18:58 18:58 18:58 WBC 5.9 RBC 4.64 Hgb 14.3 Hct 42.4 MCV 91.4 MCH 30.8 MCHC 33.7 RDW Std Deviation 43.3 RDW Coeff of Jeremiah 13.0 Plt Count 105 L MPV 10.8 Immature Gran % (Auto) 3.600 H Neut % (Auto) 68.4 Lymph % (Auto) 21.2 [place] % (Auto) 5.4 Eos % (Auto) 0.7 Baso % (Auto) 0.7 Absolute Neuts (auto) 4.0 Absolute Lymphs (auto) 1.25 Nucleated RBC % 0 Sodium 137 Potassium 4.3 Chloride 103 Carbon Dioxide 27.0 Anion Gap 7 BUN 25 H Creatinine 1.27 H Estim Creat Clear Calc 63.44 Est GFR (MDRD) Af Amer 58 L Est GFR (MDRD) Non-Af 48 L BUN/Creatinine Ratio 19.7 Glucose 100 Calcium 9.0 Total Bilirubin 0.50 AST 29 ALT 14 Alkaline Phosphatase 62 Total Protein 7.2 Albumin 3.3 Globulin 3.9 Albumin/Globulin Ratio 0.8 L Urine Color Urine Clarity Urine pH Ur Specific [place] Urine Protein Urine Glucose (UA) Urine Ketones Urine Occult Blood Urine Nitrite Urine Bilirubin Urine Urobilinogen Ur Leukocyte Esterase Valproic Acid 82 08/13/20 20:40 WBC RBC Hgb Hct MCV MCH MCHC RDW Std Deviation RDW Coeff of Jeremiah Plt Count MPV Immature Gran % (Auto) Neut % (Auto) Lymph % (Auto) [place] % (Auto) Eos % (Auto) Baso % (Auto) Absolute Neuts (auto) Absolute Lymphs (auto) Nucleated RBC % Sodium Potassium Chloride Carbon Dioxide Anion Gap BUN Creatinine Estim Creat Clear Calc Est GFR (MDRD) Af Amer Est GFR (MDRD) Non-Af BUN/Creatinine Ratio Glucose Calcium Total Bilirubin AST ALT Alkaline Phosphatase Total Protein Albumin Globulin Albumin/Globulin Ratio Urine Color Yellow Urine Clarity Clear Urine pH 7.0 Ur Specific [place] 1.005 Urine Protein Negative Urine Glucose (UA) Normal Urine Ketones Negative Urine Occult Blood Negative Urine Nitrite Negative Urine Bilirubin Negative Urine Urobilinogen Normal Ur Leukocyte Esterase Negative Valproic Acid - Medical Decision Making Patient symptoms do seem most consistent with vertigo. She had some dizziness especially with head movement today. She states that when she turns her head, the symptoms get worse. She did have some nausea and one episode of emesis. Her NIH is 0. She does have nystagmus that is rapidly extinguishing. There is no ataxia, difficulty with speech, or limb weakness. Noncontrast head CT shows no acute change. Screening labs including Depakote level were unremarkable. Patient was given meclizine. On reevaluation, she was feeling improved. At this point, I do feel that she is safe for outpatient therapy. She will be continued on meclizine. She will return with any worsening symptoms. Impression 1. Vertigo ED Disposition - Plan for ED Patient: Instructions: ED Vertigo Unspecified Prescriptions: Meclizine HCl 25 mg PO TID PRN PRN #30 tab PRN Reason: Vertigo Prescription Printed Referrals: Care Physician,No Primary [Primary Care Provider] -
[2020-08-13] MEDS: 0.9% Normal Saline 1,000 ML 1000 ML IV (19:08)
[2020-08-13 19:11] LABS: Absolute Lymphocyte Count 1.25 X10^3/uL (0.83-4.51); Basophil# 0.04 X10^3/uL; Basophil% 0.7 % (0-1); Eosinophil# 0.04 X10^3/uL; Eosinophils% 0.7 % (0-5); Hematocrit 42.4 % (37-47); Hemoglobin 14.3 g/dL (12.0-15.0); Lymphocyte # 1.25 X10^3/ul (4.0); Lymphocyte % 21.2 % (19-41); Mean Corp Hgb Conc 33.7 g/dL (32-36); Mean Corpuscular Hgb 30.8 pg (27.0-32.0); Mean Corpuscular Volume 91.4 fL (81-99); Mean Platelet Vol. 10.8 fl (6.2-12.0); Monocyte# 0.32 X10^3/uL; Monocyte% 5.4 % (0-10); NRBC Flagged by Analyzer 0 % (0-5); Neutrophil # 4.04 X10^3/uL (2.7-7.7); Neutrophil % 68.4 % (47-70); Platelet Count 105 K/mm3 (150-450); RBC Distribution Width SD 43.3 fl (35.1-43.9); Red Blood Count 4.64 M/mm3 (4.2-5.4); White Blood Count 5.9 K/mm3 (4.4-11.0)
[2020-08-13 19:50] LABS: Valproic Acid (Depakene) Level 82 ug/mL (50-100)
[2020-08-13 19:58] LABS: ALB/GLOB Ratio 0.8 RATIO (0.9-2.4); AST(SGOT) 29 U/L (15-37); Alanine Aminotransfer ALT/SGPT 14 U/L (13-56); Albumin, Serum 3.3 g/dL (3.2-5.0); Alkaline Phosphatase 62 U/L (45-117); Anion Gap 7 (5-15); BUN 25 mg/dL (7-18); BUN/Creat Ratio 19.7 RATIO (10-20); Chloride 103 mmol/L (98-107); Creatinine, Serum 1.27 mg/dL (0.55-1.02); EST Glomerular Filtration Rate 48 mL/min (>60); Est Glom Filt Rate - Afr Amer 58 mL/min (>60); Estimated Creatinine Clearance 63.44 ml/min; Globulin 3.9 g/dL (2.2-4.2); Glucose 100 mg/dL (74-106); Potassium 4.3 mmol/L (3.5-5.1); Protein, Total 7.2 g/dL (6.4-8.2); Sodium Level 137 mmol/L (136-145)
[2020-08-13 20:06] VITALS: BP 107/80; PULSE 76; RESP 18
[2020-08-13] MEDS: Meclizine HCl 25 MG Tablet PO (20:10)
[2020-08-13 20:57] LABS: Bacteria 0 SEEN /hpf (None Seen); Mucous, Urine 0 SEEN /hpf (<or=2+); Red Blood Cells-Urine 0 SEEN /hpf (0-5); White Blood Cells 0 SEEN /hpf (0-5)
[2020-08-13 21:26] LABS: Color, Urine Yellow (Yellow); Glucose, Dipstick Normal (Normal); Ketone-Dipstick Negative (Negative); Leukocyte Esterase-Dipstick Negative /ul (Negative); Nitrite-Dipstick Negative (Negative); Occult Blood-Urine Negative /ul (Negative); Protein-Dipstick Negative (Negative); Specific Gravity, Urine 1.005 (1.002-1.030); Urine Bilirubin Dipstick Negative (Negative); Urine Clarity Clear (Clear); Urine Urobilinogen Normal (Normal)
[2020-08-13 21:48] VITALS: BP 131/72; PULSE 80; RESP 16
[2020-08-13 21:48] LABS: Squamous Epithelial Cells - UA 0-5 SEEN /hpf (5-10)
== END 2020-08-14 00:06 | disposition home or self-care (01) ==
LOC: ED 19:59
PROVIDERS: Emergency Provider Emergency Medicine
DX: R42 Dizziness and giddiness (principal); G40.909 Epilepsy, unspecified, not intractable, without status epilepticus; F41.9 Anxiety disorder, unspecified; Z79.899 Other long term (current) drug therapy
CPT/HCPCS: 70450; 80053; 80164; 81001; 85025; 93005; 96360; 96361; 99284; J7030; A4216

== ENCOUNTER 2020-08-23 04:36 | Emergency (ER) | payer MEDICAID, SELFPAY ==
[2020-08-23 04:37] VITALS: BP 111/68; PULSE 110; RESP 16; TEMP 36.7; O2SAT 97; BMI 35.6
--- NOTE | 2020-08-23 04:40 | EKG12_ITS ---
Test Reason : CP Blood Pressure : / mmHG Vent. Rate : 081 BPM Atrial Rate : 081 BPM P-R Int : 142 ms QRS Dur : 082 ms QT Int : 400 ms P-R-T Axes : 050 054 050 degrees QTc Int : 464 ms Normal sinus rhythm Nonspecific T wave abnormality Prolonged QT Abnormal ECG Confirmed by JOSER ALEXIS, SARA ([id number]), editor newspaper JERMAINE BIRMINGHAM ([id number]) on 08/23/2020 1:12:21 PM Referred By: SANDEEP Confirmed By:MUKUND ODELL MD
--- NOTE | 2020-08-23 04:40 | RAD_ITS ---
HISTORY: RT SIDED CP X 2-3 HOURS ADDITIONAL HISTORY: None provided. EXAMINATION/TECHNIQUE: XR Chest 1 View AP/PA Number of images including paperwork: 1 COMPARISON: 08/06/2020 FINDINGS: LUNGS AND PLEURA: No consolidation, mass or pleural effusion. CARDIAC SILHOUETTE: Unremarkable. MEDIASTINUM AND MAYRA: Unremarkable. UPPER ABDOMEN: Unremarkable. SKELETON AND SOFT TISSUES: No acute skeletal findings. OTHER DEVICES AND HARDWARE: Linx device. RAD/Chest 1 View (Portable) IMPRESSION: No acute cardiopulmonary abnormality. at 0512 Reported and signed by: Narcisa Jimenez MD Electronically Signed: Narcisa Jimenez MD at 5:12 EST Tel , Service support ,
--- NOTE | 2020-08-23 04:41 | ED.VIS.GEN ---
History of Present Illness Chief Complaint: Chest Pain Informant: Patient Onset: Today Context: Sudden Onset Timing: Continuous Current Severity: Moderate Maximum Severity: Severe Narrative: Patient is a 44-year-old female with medical history significant for prior traumatic brain injury, seizure disorder, and stroke at the age of 25 that presents to the emergency department chest pain. Patient states her pain began about an hour prior to arrival. She was at rest. She describes it as a squeezing pain mostly on the right side of her chest. It is nonradiating. She denies shortness of breath. Patient was given aspirin by EMS. She denies any history of coronary vascular disease. She denies any nausea or vomiting. Prior similar symptoms: Yes Recent Illness/Hospitalization: No Past Medical History - Allergies and Home Meds Allergies/Adverse Reactions: Allergies acetaminophen [From Vicodin] Allergy (Verified 08/23/20 04:40) Rash erythromycin base [Erythromycin Base] Allergy (Verified 08/23/20 04:40) Rash hydrocodone bitartrate [From Vicodin] Allergy (Verified 08/23/20 04:40) Rash hydromorphone [From Dilaudid] Allergy (Verified 08/23/20 04:40) Rash Penicillins Allergy (Verified 08/23/20 04:40) Rash promethazine HCl [From Phenergan] Allergy (Verified 08/23/20 04:40) Vomiting tramadol Allergy (Verified 08/23/20 04:40) Rash codeine Adverse Reaction (Verified 08/23/20 04:40) Vomiting morphine Adverse Reaction (Verified 08/23/20 04:40) Vomiting ondansetron HCl [From Zofran] Adverse Reaction (Verified 08/23/20 04:40) Vomiting Primary Care Physician: Care Physician,No Primary [Primary Care Provider] - Prior records reviewed: Yes Past Medical History: - - Seizure disorder, traumatic brain injury, depression Surgical History: no surgical history Smoking Status: Never smoker Review of Systems General: Denies: Chills, Fever, Sweats Eyes: Denies: Visual changes - bilaterally, Diplopia ENT: Denies: Rhinorrhea, Sore throat Cardiovascular: Reports: Chest pain. Denies: Palpitations Respiratory: Denies: Dyspnea, Cough, Dyspnea on exertion Gastrointestinal: Denies: Abdominal pain, Nausea, Vomiting, Diarrhea, Melena, Hematochezia Genitourinary: Denies: Dysuria, Hematuria, Frequency Musculoskeletal: Denies: Back pain, Extremity Pain Skin: Denies: Rash, Wounds Neurological: Denies: Headache, Weakness, Numbness Physical Exam Vital Signs/Narrative: Vital Signs Temp Pulse Resp BP Pulse Ox 08/23/20 04:37 98.0 F 110 H 16 111/68 97 Inital Vital Signs reviewed: Yes General: Well nourished, Well developed, No Acute Distress Head: Normocephalic, Atraumatic Eyes: Perrl, EOMI ENT: Moist mucous membranes, No rhinorrhea Neck: Supple, Nontender Cardiovascular: Regular rate, Regular rhythm, No murmurs Respiratory: No distress, CTA bilaterally, Chest nontender Abdomen: Soft, Nontender, Nondistended, Normal bowel sounds Back: Nontender, Normal Inspection Extremities: Nontender, No edema Skin: Normal color, No rash Neurological: Alert, Oriented x3, Cranial nerves II-XII grossly intact, Normal Strength, Normal Sensation Psychological: Normal affect, Normal Mood Diagnostic/Tx/Re-eval Clinical Impression(s) from Imaging Studies Chest X-Ray 08/23/20 04:40 IMPRESSION: No acute cardiopulmonary abnormality. at 0512 Reported and signed by: Narcisa Jimenez MD Electronically Signed: Narcisa Jimenez MD at 5:12 EST Tel , Service support , Abnormal Lab Results 08/23/20 08/23/20 04:40 04:40 WBC 6.1 RBC 4.61 Hgb 14.1 Hct 41.9 MCV 90.9 MCH 30.6 MCHC 33.7 RDW Std Deviation 42.2 RDW Coeff of Jeremiah 12.8 Plt Count 93 L MPV 10.9 Immature Gran % (Auto) 1.300 H Neut % (Auto) 53.4 Lymph % (Auto) 37.1 [place] % (Auto) 6.9 Eos % (Auto) 1.0 Baso % (Auto) 0.3 Absolute Neuts (auto) 3.2 Absolute Lymphs (auto) 2.25 Nucleated RBC % 0 Differential Comment SCANNED Platelet Estimate SLT DEC Sodium 139 Potassium 3.4 L Chloride 102 Carbon Dioxide 31.0 Anion Gap 6 BUN 12 Creatinine 1.14 H Estim Creat Clear Calc 70.19 Est GFR (MDRD) Af Amer 66 Est GFR (MDRD) Non-Af 54 L BUN/Creatinine Ratio 10.5 Glucose 85 Calcium 8.4 L Troponin I < 0.015 - Rhythm Strip Rhythm Strip: Sinus Rhythm Rate: 90 Ectopy: None - EKG Initial EKG Interpretation: Sinus Rhythm, No Acute Injury Pattern, Non-Specific ST Changes Prior: Unchanged - Medical Decision Making The patient presents with right-sided chest pain that came on at rest. There are components that are reproducible. EKG was obtained. There was some nonspecific lateral T wave inversions, but unchanged from prior. Her QT is prolonged which is also unchanged from prior. Patient does not have a history of cardiovascular disease. She was given aspirin. She does have multiple allergies. I do feel like there was an anxiety component to her pain so she was given Ativan. Chest x-ray was unremarkable. Screening labs including cardiac enzymes were negative. On reevaluation, the patient is more comfortable. With a subtle irregularities of her EKG, I do feel that delta troponin would be appropriate. This will be done. I do feel that if this is negative, given the patient's low heart score she can safely be discharged. Patient is aware of plan of care. Impression 1. Chest pain ED Disposition - Plan for ED Patient: Instructions: ED Chest Pain NonCardiac Referrals: Care Physician,No Primary [Primary Care Provider] -
[2020-08-23 04:50] LABS: Absolute Lymphocyte Count 2.25 X10^3/uL (0.83-4.51); Absolute Neutrophil Count 3.2 X10^3/uL (2.0-7.7); Basophil# 0.02 X10^3/uL; Basophil% 0.3 % (0-1); Eosinophil# 0.06 X10^3/uL; Hematocrit 41.9 % (37-47); Hemoglobin 14.1 g/dL (12.0-15.0); Lymphocyte # 2.25 X10^3/ul (4.0); Lymphocyte % 37.1 % (19-41); Mean Corp Hgb Conc 33.7 g/dL (32-36); Mean Corpuscular Hgb 30.6 pg (27.0-32.0); Mean Corpuscular Volume 90.9 fL (81-99); Mean Platelet Vol. 10.9 fl (6.2-12.0); Monocyte# 0.42 X10^3/uL; Monocyte% 6.9 % (0-10); NRBC Flagged by Analyzer 0 % (0-5); Neutrophil # 3.23 X10^3/uL (2.7-7.7); Neutrophil % 53.4 % (47-70); POSITIVE COUNT YES; Platelet Count 93 K/mm3 (150-450); RBC Distribution Width CV 12.8 % (11.6-14.6); RBC Distribution Width SD 42.2 fl (35.1-43.9); Red Blood Count 4.61 M/mm3 (4.2-5.4); White Blood Count 6.1 K/mm3 (4.4-11.0)
[2020-08-23 04:51] LABS: Differential Indicated SCAN CRITERIA MET
[2020-08-23] MEDS: LORazepam 2 MG/ML Syringe 1 MG IV (04:51)
[2020-08-23 05:04] LABS: Differential Comment SCANNED
[2020-08-23 05:05] LABS: Platelet Estimate SLT DEC (ADEQ)
[2020-08-23 05:08] LABS: Anion Gap 6 (5-15); BUN 12 mg/dL (7-18); BUN/Creat Ratio 10.5 RATIO (10-20); Calcium,Total 8.4 mg/dL (8.5-10.1); Chloride 102 mmol/L (98-107); Creatinine, Serum 1.14 mg/dL (0.55-1.02); EST Glomerular Filtration Rate 54 mL/min (>60); Est Glom Filt Rate - Afr Amer 66 mL/min (>60); Estimated Creatinine Clearance 70.19 ml/min; Glucose 85 mg/dL (74-106); Potassium 3.4 mmol/L (3.5-5.1); Sodium Level 139 mmol/L (136-145)
[2020-08-23 06:35] VITALS: BP 138/94; PULSE 66; RESP 18; O2SAT 96
[2020-08-23 07:03] VITALS: BP 127/82; PULSE 63; RESP 18; O2SAT 99
[2020-08-23 07:53] VITALS: BP 125/79; PULSE 61; RESP 13; O2SAT 97
--- NOTE | 2020-08-23 07:59 | ED.RN ---
report given to diana at [facility].
[2020-08-23 09:14] VITALS: BP 123/82; PULSE 66; RESP 16; O2SAT 99
== END 2020-08-23 09:46 | disposition home or self-care (01) ==
LOC: ED 04:57
PROVIDERS: Emergency Provider Emergency Medicine
DX: R07.89 Other chest pain (principal); G40.909 Epilepsy, unspecified, not intractable, without status epilepticus; Z87.820 Personal history of traumatic brain injury; Z79.899 Other long term (current) drug therapy
CPT/HCPCS: 71045; 80048; 84484; 85025; 93005; 96374; 99285; A4216

== ENCOUNTER 2020-09-19 02:18 | Emergency (ER) | payer MEDICAID, SELFPAY ==
[2020-09-19 02:19] VITALS: BP 120/74; PULSE 93; RESP 18; TEMP 37.2; O2SAT 97; BMI 35.5
--- NOTE | 2020-09-19 02:26 | EKG12_ITS ---
Test Reason : GEN ILL Blood Pressure : / mmHG Vent. Rate : 085 BPM Atrial Rate : 085 BPM P-R Int : 154 ms QRS Dur : 084 ms QT Int : 386 ms P-R-T Axes : 045 048 053 degrees QTc Int : 459 ms Normal sinus rhythm Normal ECG Confirmed by JOSE R ALEXIS, SARA ([id number]), content editor DORIAN LONG ([id number]) on 09/20/2020 2:09:11 PM Referred By: SANDEEP Confirmed By:MUKUND ODELL MD
--- NOTE | 2020-09-19 02:26 | RAD_ITS ---
STUDY: X-RAY CHEST REASON FOR EXAM: Female, 45 years old. tested positive for Covid -- denies any sob or cough -- told doctor she had chest pain -- told me she had kidney pain TECHNIQUE: Single AP portable view of the chest. COMPARISON: None. FINDINGS: The lungs are clear and expanded. There is no demonstrated pleural abnormality. Normal size heart. Normal mediastinum and sully. Normal visualized pulmonary arteries. Normal visualized aortic arch and descending thoracic aorta. Normal visualized thoracic spine. Normal visualized ribs, clavicles, and shoulders. There is no demonstrated abnormality of the visualized soft tissue structures of the upper abdomen. RAD/Chest 1 View (Portable) IMPRESSION: Normal x-ray examination of the chest. Electronically Signed: Megha Ordonez MD at 3:23 EST , Service support ,
--- NOTE | 2020-09-19 02:28 | ED.VIS.GEN ---
History of Present Illness Chief Complaint: General Illness Informant: Patient Onset: Days Context: Gradual Onset Timing: Continuous Current Severity: Mild Maximum Severity: Mild Narrative: The patient is a 45-year-old female with history of underlying psychiatric disease, tremor, prior stroke who presents to the emergency department multiple complaints. Apparently, the patient was tested for Covid last week. She found of the results that she was positive on Wednesday. She denies cough, fever, or chills chills. She states that she is been nauseated and lightheaded. She states she is also had some abdominal cramping and diarrhea. Tonight, she states that she was just feeling generally weak and dizzy. She describes it as sensation of motion. She states that she has had this multiple times before. She has no history of underlying lung disease. She is not on oxygen at baseline. She is otherwise been in her normal state of health. Prior similar symptoms: Yes Recent Illness/Hospitalization: No Past Medical History - Allergies and Home Meds Allergies/Adverse Reactions: Allergies acetaminophen [From Vicodin] Allergy (Verified 09/19/20 02:25) Rash erythromycin base [Erythromycin Base] Allergy (Verified 09/19/20 02:25) Rash hydrocodone bitartrate [From Vicodin] Allergy (Verified 09/19/20 02:25) Rash hydromorphone [From Dilaudid] Allergy (Verified 09/19/20 02:25) Rash Penicillins Allergy (Verified 09/19/20 02:25) Rash promethazine HCl [From Phenergan] Allergy (Verified 09/19/20 02:25) Vomiting tramadol Allergy (Verified 09/19/20 02:25) Rash codeine Adverse Reaction (Verified 09/19/20 02:25) Vomiting morphine Adverse Reaction (Verified 09/19/20 02:25) Vomiting ondansetron HCl [From Zofran] Adverse Reaction (Verified 09/19/20 02:25) Vomiting Primary Care Physician: Care Physician,No Primary [Primary Care Provider] - Prior records reviewed: Yes Past Medical History: - - Prior stroke, tremor, psychiatric disease Surgical History: no surgical history Smoking Status: Never smoker Review of Systems General: Denies: Chills, Fever, Sweats Eyes: Denies: Visual changes - bilaterally, Diplopia ENT: Denies: Rhinorrhea, Sore throat Cardiovascular: Denies: Chest pain, Palpitations Respiratory: Denies: Dyspnea, Cough, Dyspnea on exertion Gastrointestinal: Reports: Abdominal pain, Nausea, Diarrhea. Denies: Vomiting, Melena, Hematochezia Genitourinary: Denies: Dysuria, Hematuria, Frequency Musculoskeletal: Denies: Back pain, Extremity Pain Skin: Denies: Rash, Wounds Neurological: Denies: Headache, Weakness, Numbness Physical Exam Vital Signs/Narrative: Vital Signs Temp Pulse Resp BP Pulse Ox 09/19/20 02:19 99.0 F 93 18 120/74 97 Inital Vital Signs reviewed: Yes General: Well nourished, Well developed, No Acute Distress Head: Normocephalic, Atraumatic Eyes: Perrl, EOMI ENT: Moist mucous membranes, No rhinorrhea Neck: Supple, Nontender Cardiovascular: Regular rate, Regular rhythm, No murmurs Respiratory: No distress, CTA bilaterally, Chest nontender Abdomen: Soft, Nontender, Nondistended, Normal bowel sounds Back: Nontender, Normal Inspection Extremities: Nontender, No edema Skin: Normal color, No rash Neurological: Alert, Oriented x3, Cranial nerves II-XII grossly intact, Normal Strength, Normal Sensation Psychological: Normal affect, Normal Mood Diagnostic/Tx/Re-eval Clinical Impression(s) from Imaging Studies Chest X-Ray 09/19/20 02:26 IMPRESSION: Normal x-ray examination of the chest. Electronically Signed: Megha Ordonez MD at 3:23 EST , Service support , Abnormal Lab Results 09/19/20 09/19/20 09/19/20 02:40 02:40 03:05 WBC 3.6 L RBC 4.75 Hgb 14.7 Hct 42.2 MCV 88.8 MCH 30.9 MCHC 34.8 RDW Std Deviation 40.8 RDW Coeff of Jeremiah 12.4 Plt Count 96 L MPV 10.1 Immature Gran % (Auto) 1.400 H Neut % (Auto) 61.3 Lymph % (Auto) 27.3 Wallace % (Auto) 9.4 Eos % (Auto) 0.3 Baso % (Auto) 0.3 Absolute Neuts (auto) 2.2 Absolute Lymphs (auto) 0.99 Nucleated RBC % 0 Sodium 136 Potassium 3.1 L Chloride 101 Carbon Dioxide 31.0 Anion Gap 4 L BUN 14 Creatinine 1.25 H Estim Creat Clear Calc 63.15 Est GFR (MDRD) Af Amer 59 L Est GFR (MDRD) Non-Af 49 L BUN/Creatinine Ratio 11.2 Glucose 110 H Calcium 8.6 Total Bilirubin 0.40 AST 23 ALT 22 Alkaline Phosphatase 79 Total Protein 7.0 Albumin 3.4 Globulin 3.6 Albumin/Globulin Ratio 0.9 Urine Color Yellow Urine Clarity Clear Urine pH 6.0 Ur Specific [place] 1.015 Urine Protein 15 H Urine Glucose (UA) Normal Urine Ketones 5 H Urine Occult Blood 150 H Urine Nitrite Negative Urine Bilirubin Negative Urine Urobilinogen 4 H Ur Leukocyte Esterase 500 H Urine RBC 0-5 SEEN Urine WBC 10-25 SEEN Ur Squamous Epith Cells 25-50 SEEN Urine Bacteria 2+ Urine Mucus 0 SEEN - Medical Decision Making The patient presents with multiple complaints. Most of them are chronic issues that she has been dealing with. She was recently diagnosed with Covid, but she has no hypoxia or shortness of breath. She has no tachypnea. She did have some transient chest pain with coughing that is since resolved. EKG was obtained which was sinus rhythm without acute ischemia. Was unchanged from prior. She does have chronic dizziness which is exacerbated by her illness. Patient was given fluids and antiemetics. She is feeling improved. Chest x-ray reviewed by myself and the radiologist shows no acute abnormalities. Screening labs do show mild hypokalemia which was replaced orally. Patient does have an indeterminant urine with some symptoms of cystitis. Culture was added. She will be treated with Bactrim. In light of her Covid diagnosis, I do not see any acute reason for hospitalization. I do feel that she is safe for outpatient therapy. She is comfortable with this plan of care. Impression 1. Dizziness 2 2. COVID-19 3. Cystitis 4. Hypokalemia ED Disposition - Plan for ED Patient: Instructions: Coronavirus Disease 2019 (COVID-19): Overview, ED Bladder Infection, Female (Adult) Prescriptions: Smz/Tmp Ds [Bactrim Ds] 1 tab PO BID #6 tab Prescription Printed Referrals: Care Physician,No Primary [Primary Care Provider] -
[2020-09-19 02:46] LABS: Absolute Lymphocyte Count 0.99 X10^3/uL (0.83-4.51); Absolute Neutrophil Count 2.2 X10^3/uL (2.0-7.7); Basophil# 0.01 X10^3/uL; Basophil% 0.3 % (0-1); Eosinophil# 0.01 X10^3/uL; Eosinophils% 0.3 % (0-5); Hematocrit 42.2 % (37-47); Hemoglobin 14.7 g/dL (12.0-15.0); Lymphocyte # 0.99 X10^3/ul (4.0); Lymphocyte % 27.3 % (19-41); Mean Corp Hgb Conc 34.8 g/dL (32-36); Mean Corpuscular Hgb 30.9 pg (27.0-32.0); Mean Corpuscular Volume 88.8 fL (81-99); Mean Platelet Vol. 10.1 fl (6.2-12.0); Monocyte# 0.34 X10^3/uL; Monocyte% 9.4 % (0-10); NRBC Flagged by Analyzer 0 % (0-5); Neutrophil # 2.23 X10^3/uL (2.7-7.7); Neutrophil % 61.3 % (47-70); POSITIVE COUNT YES; Platelet Count 96 K/mm3 (150-450); RBC Distribution Width CV 12.4 % (11.6-14.6); RBC Distribution Width SD 40.8 fl (35.1-43.9); Red Blood Count 4.75 M/mm3 (4.2-5.4); White Blood Count 3.6 K/mm3 (4.4-11.0)
[2020-09-19] MEDS: DiphenhydrAMINE 50 MG/ML Syringe 25 MG IV (02:48)
[2020-09-19] MEDS: proCHLORPERazine 10 MG/2 ML Vial 5 MG IV (02:48)
[2020-09-19] MEDS: Ketorolac 15 MG/ML Vial IV (02:51)
[2020-09-19 03:01] LABS: ALB/GLOB Ratio 0.9 RATIO (0.9-2.4); AST(SGOT) 23 U/L (15-37); Alanine Aminotransfer ALT/SGPT 22 U/L (13-56); Albumin, Serum 3.4 g/dL (3.2-5.0); Alkaline Phosphatase 79 U/L (45-117); Anion Gap 4 (5-15); BUN 14 mg/dL (7-18); BUN/Creat Ratio 11.2 RATIO (10-20); Calcium,Total 8.6 mg/dL (8.5-10.1); Chloride 101 mmol/L (98-107); Creatinine, Serum 1.25 mg/dL (0.55-1.02); EST Glomerular Filtration Rate 49 mL/min (>60); Est Glom Filt Rate - Afr Amer 59 mL/min (>60); Estimated Creatinine Clearance 63.15 ml/min; Globulin 3.6 g/dL (2.2-4.2); Glucose 110 mg/dL (74-106); Potassium 3.1 mmol/L (3.5-5.1); Sodium Level 136 mmol/L (136-145)
[2020-09-19 03:07] LABS: Color, Urine Yellow (Yellow); Glucose, Dipstick Normal (Normal); Ketone-Dipstick 5 mg/dl (Negative); Leukocyte Esterase-Dipstick 500 /ul (Negative); Mucous, Urine 0 SEEN /hpf (<or=2+); Nitrite-Dipstick Negative (Negative); Occult Blood-Urine 150 /ul (Negative); Protein-Dipstick 15 mg/dl (Negative); Specific Gravity, Urine 1.015 (1.002-1.030); Urine Bilirubin Dipstick Negative (Negative); Urine Clarity Clear (Clear); Urine Urobilinogen 4 mg/dl (Normal)
[2020-09-19 03:14] LABS: Bacteria 2+ /hpf (None Seen)
[2020-09-19 03:15] LABS: Red Blood Cells-Urine 0-5 SEEN /hpf (0-5); White Blood Cells 10-25 SEEN /hpf (0-5)
[2020-09-19 03:16] LABS: Squamous Epithelial Cells - UA 25-50 SEEN /hpf (5-10)
[2020-09-19] MEDS: Smz/Tmp Ds Tablet 1 TABLET PO (03:44)
[2020-09-19 03:45] VITALS: BP 120/74; PULSE 77; RESP 18; O2SAT 96
--- NOTE | 2020-09-19 06:52 | NURSING ---
eta is another 60 min
[2020-09-19 09:00] VITALS: PULSE 84; RESP 17; O2SAT 97
== END 2020-09-19 09:18 | disposition home or self-care (01) ==
LOC: ED 03:21
PROVIDERS: Emergency Provider Emergency Medicine
DX: U07.1 COVID-19 (principal); E87.6 Hypokalemia; N30.90 Cystitis, unspecified without hematuria; R42 Dizziness and giddiness; Z86.73 Personal history of transient ischemic attack (TIA), and cerebral infarction without residual deficits
CPT/HCPCS: 71045; 80053; 81001; 85025; 87086; 87088; 93005; 96361; 96374; 96375; 99285; J7030; A4216

== ENCOUNTER 2024-07-25 17:08 | Emergency (ER) | payer MEDICAID, SELFPAY ==
[2024-07-25 17:12] VITALS: BP 197/103; PULSE 91; RESP 17; TEMP 37.4; O2SAT 98; BMI 36.8
--- NOTE | 2024-07-25 17:24 | EX.ED.DYSGE1 ---
HPI History of Present Illness Chief Complaint: Seizure Detail of Chief Complaint: Seizure Informant: patient Narrative Narrative: Patient presents to the emergency department via EMS from [place] [facility] with complaint of seizures today x 5. These were whole body tonic-clonic like lasting several minutes and then was postictal but did not recover between apparently in the last hour. Patient has known history of seizure disorder. She was given 2 mg of Ativan prior to coming to the emergency department. Patient tells me she has been compliant with her divalproex and Keppra. She denies falls or head injuries. She denies recent illness. [facility] Medical History CKD (chronic kidney disease) Diaphragmatic hernia Edema Epileptic seizure, generalized Falls Fatty liver Fracture of nasal bone GERD (gastroesophageal reflux disease) Hirsutism History of [place] (myocardial infarction) History of TIA (transient ischemic attack) History of UTI Hypercholesteremia Hypokalemia Hypothyroidism Insomnia Long-term use of high-risk medication Major depressive disorder Nonrheumatic mitral (valve) prolapse Obesity MELQUIADES (obstructive sleep apnea) Psoriasis Separation of muscle (nontraumatic), unspecified site Systolic heart failure Tremor Home Medications ?Medication ?Instructions ?Recorded ?Last Taken ?Type albuterol sulfate 90 mcg/actuation 1 - 2 puff inhalation Q6H PRN PRN 03/05/20 Unknown History aerosol inhaler Sob &/Or Wheezing allopurinol 300 mg tablet 300 mg PO DAILY 03/05/20 Unknown History doxazosin 4 mg tablet 4 mg PO QHS 03/05/20 Unknown History hydrochlorothiazide 12.5 mg tablet 12.5 mg PO DAILY 03/05/20 Unknown History acetaminophen 325 mg capsule 650 mg PO Q4H PRN 06/05/21 Unknown History (Tylenol) amlodipine 10 mg tablet 10 mg PO DAILY 06/05/21 Unknown History artifi.tears(hypromellose)(PF) 0.3 2 drp ophthalmic (eye) .Q1HR PRN 06/05/21 Unknown History % eye drops atorvastatin 20 mg tablet 20 mg PO DAILY 06/05/21 Unknown History buspirone 10 mg tablet 10 mg PO TID 06/05/21 Unknown History ergocalciferol (vitamin D2) 1,250 1,250 mcg PO QWEEK 06/05/21 Unknown History mcg (50,000 unit) capsule (Vitamin D2) levothyroxine 25 mcg capsule 25 mcg PO DAILY 06/05/21 Unknown History loratadine 10 mg capsule 10 mg PO QHS 06/05/21 Unknown History meclizine 25 mg tablet 25 mg PO Q8H PRN Vertigo 06/05/21 Unknown History melatonin 5 mg capsule 5 mg PO QHS 06/05/21 Unknown History sertraline 100 mg tablet 125 mg PO QHS 06/05/21 Unknown History potassium chloride 10 mEq 30 meq PO DAILY 08/26/21 Unknown History capsule,extended release calcium carbonate (Sriram-Gest 200 mg PO DAILY 12/23/21 Unknown History Antacid) cyanocobalamin (vitamin B-12) 1,000 mcg PO DAILY 12/23/21 Unknown History 1,000 mcg tablet guaifenesin 400 mg tablet 400 mg PO Q6H PRN 12/23/21 Unknown History lorazepam 1 mg tablet See Rx Instructions .Route 12/23/21 Unknown Rx .COMPLEX #0 tabs menthol 4 % topical gel (Biofreeze 1 applic topical DAILY PRN pain 12/23/21 Unknown History (menthol)) sennosides 8.6 mg-docusate sodium 2 tab-cap PO DAILY 12/23/21 Unknown History 50 mg tablet (Senokot-S) divalproex 250 mg tablet,extended 250 mg PO QAM #30 tabs 08/13/22 Unknown Rx release 24 hr divalproex 500 mg tablet,extended 500 mg PO QHS #30 tabs 08/13/22 Unknown Rx release 24 hr flurbiprofen 100 mg tablet 100 mg PO TID PRN pain #90 tabs 08/13/22 Unknown Rx levetiracetam 500 mg tablet 500 mg PO BID #60 tabs 08/13/22 Unknown Rx (Keppra) omeprazole 20 mg capsule,delayed 20 mg PO DAILY 08/13/22 Unknown History release primidone 50 mg tablet 100 mg (2 x 50 mg) PO BID #120 tabs 08/13/22 Unknown Rx Allergy/AdvReac Type Severity Reaction Status Date / Time gabapentin (From Neurontin) Allergy Unknown Unknown Verified 07/25/24 17:12 hydrocodone Allergy Unknown Unknown Verified 07/25/24 17:12 acetaminophen (From Vicodin) Allergy Rash Verified 07/25/24 17:12 erythromycin base Allergy Rash Verified 07/25/24 17:12 (Erythromycin Base) hydrocodone bitartrate (From Allergy Rash Verified 07/25/24 17:12 Vicodin) hydromorphone (From Dilaudid) Allergy Rash Verified 07/25/24 17:12 Penicillins Allergy Rash Verified 07/25/24 17:12 promethazine HCl (From Allergy Vomiting Verified 07/25/24 17:12 Phenergan) tramadol Allergy Rash Verified 07/25/24 17:12 codeine AdvReac Vomiting Verified 07/25/24 17:12 morphine AdvReac Vomiting Verified 07/25/24 17:12 ondansetron HCl (From Zofran) AdvReac Vomiting Verified 07/25/24 17:12 Social History Smoking Status: Never smoker Electronic Cigarette Use: not used second hand exposure: No alcohol intake: never substance use type: does not use ROS ROS ED Review of Systems ROS Unobtainable: other Constitutional Constitutional ED: Reports lethargy; Denies chills, fever(s), sweats or weight loss Eyes Eyes: Denies blurry vision, change in vision or diplopia ENT ENT ED: Denies rhinorrhea or sore throat Cardiovascular Cardiovascular: Denies chest pain, orthopnea or racing heartbeat Respiratory/Chest Respiratory/Chest: Denies cough, dyspnea, dyspnea on exertion, orthopnea or sputum Gastrointestinal Gastrointestinal: Denies abdominal pain, diarrhea, nausea or vomiting Genitourinary Genitourinary ED: Denies dysuria, hematuria or urinary frequency Musculoskeletal Musculoskeletal: Denies arthralgias, back pain, myalgias or neck pain Integumentary Denies abscess, Abrasions or rash Neurologic Neurologic: Reports other Details: Seizures ; Denies headache(s) or weakness Psychiatric Psychiatric: Denies anxiety, depression or suicidal thoughts Endocrine Endocrinology: Denies polydipsia, polyphagia or polyuria Hematologic/Lymphatic Hematologic/Lymphatic: Denies easy bleeding, easy bruising or lymphadenopathy Allergic/Immunologic Allergic/Immunologic ED: Denies mouth swelling, tongue swelling or urticaria EXAM Physical Exam Const Vital Signs: 07/25/24 17:12 Temperature 99.3 F H Temperature Source Oral Pulse Rate 91 Respiratory Rate 17 Blood Pressure 197/103 H Blood Pressure Mean 134 Pulse Ox 98 Oxygen Delivery Method Room Air Positive well nourished and well developed General Appearance ED: well developed and NAD HEENT Reports TM's clear and moist mucous membranes HEENT Narrative: No external evidence of trauma to her head. No significant bite wounds noted to the oral mucosa or tongue. normocephalic and atraumatic; Negative for trauma or tenderness Tympanic Membrane ED: Yes TM's clear Eyes PERRL and EOMs intact bilaterally General Eye ED: Negative for pale conjunctiva or scleral icterus Neck no lymphadenopathy, supple and no JVD General: Negative for tenderness Chest Wall inspection of chest normal and palpation of chest normal Chest: Negative for tenderness Resp normal respiratory effort and clear to auscultation bilaterally Effort and Inspection: Negative for respiratory distress or pain with movement Auscultation: Negative for rhonchi, wheezes or diminished lung sounds Cardio regular rate, regular rhythm, S1 normal heart sound, S2 normal heart sound and no murmurs Peripheral Pulses: pulses 2+ throughout GI normal to inspection, nondistended, normoactive bowel sounds, soft to palpation, non-tender, non-distended and no masses Back/Spine no CVA tenderness and no thoracic nor lumbar tenderness Extremity normal to inspection General Extremety ED: Negative for edema General Extremity: Negative for edema Neuro oriented x3, CN's II-XII intact bilaterally, no sensory deficits noted and gait normal Sensorium / Orientation: awake, alert, oriented to person, oriented to place and oriented to time Motor Exam: strength 5/5 throughout and strength abnormal Psych mental status grossly normal Skin no rashes or lesions noted and no wounds MDM MDM MDM Narrative Medical decision making narrative: Patient presents with multiple small seizures x 5 in the last hour without returning to normal sensorium in between from what [place] [facility] staff state. On arrival patient is awake and alert and appropriate without complaints. IV line established. CBC with differential white count of 4.4 with hemoglobin 13 and platelet count of 92,000. Chemistries unremarkable. BUN 23 and creatinine 1.48. LFTs were normal. Urinalysis was normal. Valproic acid level was 58. While in department I did give her Keppra 1000 mg IV. Patient has had no further seizure-like activity here. Clinically she looks well and I feel she can be discharged back to the [place] [facility]. Patient has no concerns otherwise. Lab Data Attestation: I reviewed the patient's lab results. Labs: Laboratory Results - last 24 hr 07/25/24 07/25/24 17:20 17:35 WBC 4.4 RBC 4.41 Hgb 13.5 Hct 40.8 MCV 92.5 MCH 30.6 MCHC 33.1 RDW Std Deviation 44.1 H RDW Coeff of Jeremiah 13.1 Plt Count 92 L MPV 10.8 Immature Gran % (Auto) 1.100 H Neut % (Auto) 62.1 Lymph % (Auto) 26.4 [place] % (Auto) 8.5 Eos % (Auto) 1.4 Baso % (Auto) 0.5 Absolute Neuts (auto) 2.7 Absolute Lymphs (auto) 1.15 Nucleated RBC % 0 Platelet Estimate MOD DEC Plt Morphology Comment LARGE RBC Morphology N CHROM Anisocytosis RARE Macrocytosis RARE Sodium 138 Potassium 4.6 Chloride 105 Carbon Dioxide 25.0 Anion Gap 8 BUN 23 H Creatinine 1.48 H Estim Creat Clear Calc 40.99 Est GFR (MDRD) Af Amer 48 L Est GFR (MDRD) Non-Af 40 L BUN/Creatinine Ratio 15.5 Glucose 115 H Calcium 8.5 Total Bilirubin 0.20 AST 37 ALT 36 Alkaline Phosphatase 99 Total Protein 6.5 Albumin 3.4 Globulin 3.1 Albumin/Globulin Ratio 1.1 Urine Color Yellow Urine Clarity Clear Urine pH 6.5 Ur Specific [place] 1.015 Urine Protein 30 H Urine Glucose (UA) Normal Urine Ketones Negative Urine Occult Blood Negative Urine Nitrite Negative Urine Bilirubin Negative Urine Urobilinogen Normal Ur Leukocyte Esterase Negative Urine RBC 0 SEEN Urine WBC 0 SEEN Ur Squamous Epith Cells 0-5 SEEN Urine Bacteria 0 SEEN Urine Mucus 0 SEEN Valproic Acid 58 Discharge Plan Triage Chief Complaint: Seizure ED Provider: Archie Sanches Dx/Rx/DC Orders Clinical Impression: Seizure Instructions: ED Seizure, Recurrent (Adult) Prescriptions: No Action amlodipine 10 mg tablet 10 mg PO DAILY atorvastatin 20 mg tablet 20 mg PO DAILY buspirone 10 mg tablet 10 mg PO TID levothyroxine 25 mcg capsule 25 mcg PO DAILY loratadine 10 mg capsule 10 mg PO QHS melatonin 5 mg capsule 5 mg PO QHS ergocalciferol (vitamin D2) [Vitamin D2] 1,250 mcg (50,000 unit) capsule 1,250 mcg PO QWEEK meclizine 25 mg tablet 25 mg PO Q8H PRN (Reason: Vertigo) acetaminophen [Tylenol] 325 mg capsule 650 mg PO Q4H PRN artifi.tears(hypromellose)(PF) 0.3 % drops 2 drp ophthalmic (eye) .Q1HR PRN guaifenesin 400 mg tablet 400 mg PO Q6H PRN sennosides-docusate sodium [Senokot-S] 8.6-50 mg tablet 2 tab-cap PO DAILY potassium chloride 10 mEq capsule, extended release 30 meq PO DAILY Biofreeze (menthol) 4 % gel 1 applic topical DAILY PRN (Reason: pain) calcium carbonate [Sriram-Gest Antacid] 200 mg calcium (500 mg) tablet,chewable 200 mg PO DAILY cyanocobalamin (vitamin B-12) 1,000 mcg tablet 1,000 mcg PO DAILY lorazepam 1 mg tablet See Rx Instructions .ROUTE .COMPLEX Qty: 0 0RF Rx Instructions: 2 tabs PO QAM and 1 tab PO QPM omeprazole 20 mg capsule,delayed release(DR/EC) 20 mg PO DAILY divalproex 250 mg tablet extended release 24 hr 250 mg PO QAM Qty: 30 4RF divalproex 500 mg tablet extended release 24 hr 500 mg PO QHS Qty: 30 4RF levetiracetam [Keppra] 500 mg tablet 500 mg PO BID Qty: 60 4RF primidone 50 mg tablet 100 mg PO BID Qty: 120 4RF flurbiprofen 100 mg tablet 100 mg PO TID PRN (Reason: pain) Qty: 90 4RF doxazosin 4 MG tablet 4 mg PO QHS allopurinol 300 MG tablet 300 mg PO DAILY albuterol sulfate 1 PUFF inhaler 1 - 2 puff inhalation Q6H PRN PRN (Reason: Sob &/Or Wheezing) hydrochlorothiazide 12.5 MG tablet 12.5 mg PO DAILY sertraline 100 mg tablet 125 mg PO QHS Primary Care Provider: Sree Jamison Referrals: Sree Jamison MD [Primary Care Provider] - 3-5 Days Activity Restrictions/Additional Instructions: Follow-up with your neurologist within next 3 to 5 days Print Language: Ug[place]an Disposition Disposition: Home, Self Care
[2024-07-25 17:33] LABS: Absolute Lymphocyte Count 1.15 X10^3/uL (0.83-4.51); Absolute Neutrophil Count 2.7 X10^3/uL (2.0-7.7); Basophil# 0.02 X10^3/uL; Basophil% 0.5 % (0-1); Eosinophil# 0.06 X10^3/uL; Eosinophils% 1.4 % (0-5); Hematocrit 40.8 % (37-47); Hemoglobin 13.5 g/dL (12.0-15.0); Lymphocyte # 1.15 X10^3/ul (0.83-4.51); Lymphocyte % 26.4 % (19-41); Mean Corp Hgb Conc 33.1 g/dL (32-36); Mean Corpuscular Hgb 30.6 pg (27.0-32.0); Mean Corpuscular Volume 92.5 fL (81-99); Mean Platelet Vol. 10.8 fl (6.2-12.0); Monocyte# 0.37 X10^3/uL; Monocyte% 8.5 % (0-10); NRBC Flagged by Analyzer 0 % (0-5); Neutrophil # 2.71 X10^3/uL (2.7-7.7); Neutrophil % 62.1 % (47-70); POSITIVE COUNT YES; Platelet Count 92 K/mm3 (150-450); RBC Distribution Width CV 13.1 % (11.6-14.6); RBC Distribution Width SD 44.1 fl (35.1-43.9); Red Blood Count 4.41 M/mm3 (4.2-5.4); White Blood Count 4.4 K/mm3 (4.4-11.0)
[2024-07-25 17:48] LABS: Differential Indicated SCAN CRITERIA MET
[2024-07-25 17:49] LABS: Valproic Acid (Depakene) Level 58 ug/mL (50-100)
[2024-07-25 17:50] LABS: ALB/GLOB Ratio 1.1 RATIO (0.9-2.4); AST(SGOT) 37 U/L (15-37); Alanine Aminotransfer ALT/SGPT 36 U/L (13-56); Albumin, Serum 3.4 g/dL (3.2-5.0); Alkaline Phosphatase 99 U/L (45-117); Anion Gap 8 (5-15); BUN 23 mg/dL (7-18); BUN/Creat Ratio 15.5 RATIO (10-20); Calcium,Total 8.5 mg/dL (8.5-10.1); Chloride 105 mmol/L (98-107); Creatinine, Serum 1.48 mg/dL (0.55-1.02); EST Glomerular Filtration Rate 40 mL/min (>60); Est Glom Filt Rate - Afr Amer 48 mL/min (>60); Estimated Creatinine Clearance 40.99 ml/min; Globulin 3.1 g/dL (2.2-4.2); Glucose 115 mg/dL (74-106); Potassium 4.6 mmol/L (3.5-5.1); Protein, Total 6.5 g/dL (6.4-8.2); Sodium Level 138 mmol/L (136-145)
[2024-07-25 17:52] LABS: Bacteria 0 SEEN /hpf (None Seen); Mucous, Urine 0 SEEN /hpf (<or=2+); Red Blood Cells-Urine 0 SEEN /hpf (0-5); White Blood Cells 0 SEEN /hpf (0-5)
[2024-07-25 17:58] LABS: Color, Urine Yellow (Yellow); Glucose, Dipstick Normal (Normal); Ketone-Dipstick Negative (Negative); Leukocyte Esterase-Dipstick Negative /ul (Negative); Nitrite-Dipstick Negative (Negative); Occult Blood-Urine Negative /ul (Negative); Protein-Dipstick 30 mg/dl (Negative); Specific Gravity, Urine 1.015 (1.002-1.030); Urine Bilirubin Dipstick Negative (Negative); Urine Clarity Clear (Clear); Urine Urobilinogen Normal (Normal); Urine pH 6.5 (5.0 - 8.0)
[2024-07-25 18:09] LABS: Squamous Epithelial Cells - UA 0-5 SEEN /hpf (5-10)
[2024-07-25 18:13] LABS: Anisocytosis RARE; Macrocytosis RARE; Platelet Estimate MOD DEC (ADEQ); Platelet Morphology LARGE; Red Cell Morphology N CHROM NORMAL (NORM C&C)
[2024-07-25] MEDS: levETIRAcetam IV 1,000 MG/100 ML BAG 400 MG IV (18:25)
[2024-07-25 19:08] VITALS: BP 158/82; PULSE 81; PULSE 85; RESP 17; RESP 20; TEMP 37.2; O2SAT 94; O2SAT 95
--- NOTE | 2024-07-25 19:46 | ED.RN ---
call to give report. no answer.
[2024-07-25 21:00] VITALS: BP 157/97; PULSE 76; RESP 16; O2SAT 93
[2024-07-25 23:00] VITALS: BP 159/93; PULSE 79; RESP 18; O2SAT 95
[2024-07-26] VITALS: BP 156/89; PULSE 76; RESP 18; TEMP 36.4; O2SAT 95
== END 2024-07-26 00:38 | disposition home or self-care (01) ==
PROVIDERS: Emergency Provider Emergency Medicine; PCP Family Medicine; Visit Provider Emergency Medicine
DX: R56.9 Unspecified convulsions (principal); I50.22 Chronic systolic (congestive) heart failure; N18.9 Chronic kidney disease, unspecified; E78.00 Pure hypercholesterolemia, unspecified; K21.9 Gastro-esophageal reflux disease without esophagitis
CPT/HCPCS: 80053; 80164; 81001; 85025; 96365; 99284; A4216

== ENCOUNTER 2024-09-26 11:12 | Emergency (ER) | payer MEDICAID, SELFPAY ==
[2024-09-26 11:14] VITALS: BP 169/94; PULSE 78; RESP 16; TEMP 36.7; O2SAT 98; BMI 37.7
--- NOTE | 2024-09-26 11:45 | EKG12_ITS ---
Test Reason : WEAKNESS Blood Pressure : */* mmHG Vent. Rate : 73 BPM Atrial Rate : 73 BPM P-R Int : 168 ms QRS Dur : 78 ms QT Int : 402 ms P-R-T Axes : 51 42 42 degrees QTcB Int : 442 ms Normal sinus rhythm Normal ECG Confirmed by OMA ALEXIS, ELTON ([id number]), order editor VIVI VILLARREAL ([id number]) on 09/27/2024 12:38:46 PM Referred By: Confirmed By: ELTON ERNANDEZ MD
--- NOTE | 2024-09-26 11:45 | CT_ITS ---
STUDY: CT ABDOMEN AND PELVIS WITH CONTRAST REASON FOR EXAM: Female, 49 years old. Abd pain, nausea and vomiting RADIATION DOSAGE (If Supplied By Facility): CTDIvol = ( 16.47 ) mGy, DLP = ( 1232.83 ) mGycm TECHNIQUE: Transaxial images were obtained from the dome of the diaphragm to the symphysis pubis without oral contrast. IV 100mL Isovue-370 was administered. Sagittal and coronal images were reconstructed. Individualized dose optimization techniques were used for this CT. COMPARISON: Comparison is made with prior study July 27, 2013. FINDINGS: Mild increased linear markings at the lung bases suggestive of scarring. 7 mm noncalcified nodule in the anterior lateral aspect of the right lower lobe as seen on axial image #5 and coronal image #52. 6 month follow-up examination is recommended.. The visualized portions of the heart are within normal limits. There is decreased attenuation of the liver consistent with steatosis. Sylvester''s lobe of the liver. Normal gallbladder and extrahepatic biliary system. Normal spleen. Normal pancreas. Normal bilateral adrenal glands. Normal right kidney. Normal left kidney. A ring is seen at the gastroesophageal junction into the prior hiatal hernia repair. Normal small intestine. Normal colon. There are surgical clips in the region of the appendix consistent with a prior appendectomy. Normal abdominal aorta. Normal inferior vena cava. Normal retroperitoneum. Normal urinary bladder. Normal abdominal wall. Normal osseous structures. CT/Abdomen/Pelvis W IV Cont ONLY IMPRESSION: Fatty infiltration of the liver. 7 mm noncalcified nodule in the peripheral lateral aspect of the right lower lobe as described. 6 month follow-up CT of the chest is recommended. Prior hiatal hernia repair. Electronically Signed: Son Hernandez MD at 13:09 EST ,
--- NOTE | 2024-09-26 11:46 | CT_ITS ---
STUDY: CT BRAIN WITHOUT CONTRAST REASON FOR EXAM: Female, 49 years old. Fall hit head RADIATION DOSAGE (If Supplied By Facility): CTDIvol = ( 44.99 ) mGy, DLP = ( 812.98 ) mGycm TECHNIQUE: Transaxial CT imaging of the brain was performed without administration of intravenous contrast material. Individualized dose optimization techniques were used for this CT. COMPARISON: Comparison is made with prior study August 13, 2020. FINDINGS: Small focal scalp hematoma overlying the right frontal bone. There is hyperostosis frontalis internus. Normal size ventricles and extra-axial spaces for the patient''s age. Normal white matter tracts of the cerebral hemispheres. Normal basal ganglia and thalami. Normal brainstem. Normal cerebellum. There is no intracranial hemorrhage. There are no findings of an acute ischemic infarction. Normal visualized paranasal sinuses. CT/Brain/Head without Contrast IMPRESSION: Normal unenhanced CT scan of the brain. Small focal scalp hematoma overlying the right frontal bone. Electronically Signed: Son Hernandez MD at 13:03 EST ,
[2024-09-26 12:15] LABS: Absolute Lymphocyte Count 1.31 X10^3/uL (0.83-4.51); Absolute Neutrophil Count 3.2 X10^3/uL (2.0-7.7); Basophil# 0.02 X10^3/uL; Basophil% 0.4 % (0-1); Eosinophils% 1.9 % (0-5); Hematocrit 40.3 % (37-47); Hemoglobin 13.3 g/dL (12.0-15.0); Lymphocyte # 1.31 X10^3/ul (0.83-4.51); Lymphocyte % 25.5 % (19-41); Mean Corpuscular Hgb 30.3 pg (27.0-32.0); Mean Corpuscular Volume 91.8 fL (81-99); Mean Platelet Vol. 10.6 fl (6.2-12.0); Monocyte# 0.44 X10^3/uL; Monocyte% 8.6 % (0-10); NRBC Flagged by Analyzer 0 % (0-5); Neutrophil # 3.24 X10^3/uL (2.7-7.7); Platelet Count 103 K/mm3 (150-450); RBC Distribution Width CV 12.6 % (11.6-14.6); RBC Distribution Width SD 41.6 fl (35.1-43.9); Red Blood Count 4.39 M/mm3 (4.2-5.4); White Blood Count 5.1 K/mm3 (4.4-11.0)
[2024-09-26 12:29] LABS: AST(SGOT) 28 U/L (15-37); Alanine Aminotransfer ALT/SGPT 36 U/L (13-56); Albumin, Serum 3.2 g/dL (3.2-5.0); Alkaline Phosphatase 113 U/L (45-117); Anion Gap 5 (5-15); BUN 27 mg/dL (7-18); BUN/Creat Ratio 20.5 RATIO (10-20); Calcium,Total 9.3 mg/dL (8.5-10.1); Chloride 108 mmol/L (98-107); Creatinine, Serum 1.32 mg/dL (0.55-1.02); EST Glomerular Filtration Rate 45 mL/min (>60); Est Glom Filt Rate - Afr Amer 55 mL/min (>60); Estimated Creatinine Clearance 46.04 ml/min; Globulin 3.3 g/dL (2.2-4.2); Glucose 96 mg/dL (74-106); Lipase 107 U/L (13-75); Potassium 4.8 mmol/L (3.5-5.1); Protein, Total 6.5 g/dL (6.4-8.2); Sodium Level 138 mmol/L (136-145)
[2024-09-26 12:44] LABS: Bacteria 0 SEEN /hpf (None Seen); Mucous, Urine 0 SEEN /hpf (<or=2+); Red Blood Cells-Urine 0 SEEN /hpf (0-5); White Blood Cells 0 SEEN /hpf (0-5)
[2024-09-26 12:46] LABS: Color, Urine Yellow (Yellow); Glucose, Dipstick Normal (Normal); Ketone-Dipstick Negative (Negative); Leukocyte Esterase-Dipstick Negative /ul (Negative); Nitrite-Dipstick Negative (Negative); Occult Blood-Urine Negative /ul (Negative); Protein-Dipstick 30 mg/dl (Negative); Urine Bilirubin Dipstick Negative (Negative); Urine Clarity Sl. Cloudy (Clear); Urine Urobilinogen Normal (Normal)
[2024-09-26 12:51] LABS: Squamous Epithelial Cells - UA 0-5 SEEN /hpf (5-10)
[2024-09-26] MEDS: 0.9% Normal Saline (1000mL) 1,000 ML 999 ML IV (12:53)
[2024-09-26] MEDS: Metoclopramide 10 MG/2 ML Vial IV (12:54)
[2024-09-26 13:13] VITALS: O2SAT 97
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
[2024-09-26 14:37] VITALS: BP 169/94; PULSE 78; RESP 16; TEMP 36.7; O2SAT 97
[2024-09-26 15:00] VITALS: PULSE 84; RESP 18
== END 2024-09-26 15:33 | disposition skilled nursing facility (03) ==
PROVIDERS: Emergency Provider Emergency Medicine; PCP Family Medicine; Visit Provider Emergency Medicine
DX: K92.0 Hematemesis (principal); I50.22 Chronic systolic (congestive) heart failure; K76.0 Fatty (change of) liver, not elsewhere classified; E78.00 Pure hypercholesterolemia, unspecified; N18.9 Chronic kidney disease, unspecified; R91.1 Solitary pulmonary nodule; K21.9 Gastro-esophageal reflux disease without esophagitis; E03.9 Hypothyroidism, unspecified; Z79.899 Other long term (current) drug therapy
CPT/HCPCS: 70450; 74177; 80053; 81001; 83690; 85025; 87631; 93005; 96361; 96374; 99285; Q9967; A4216

== ENCOUNTER 2024-10-02 19:14 | Emergency (ER) | payer MEDICAID, SELFPAY ==
[2024-10-02 19:17] VITALS: BP 171/79; PULSE 89; RESP 18; TEMP 37; O2SAT 97; BMI 39.4
--- NOTE | 2024-10-02 19:48 | EDS_ITS ---
HPI History of Present Illness HPI Narrative: Patient presents with left leg pain that began tonight. Patient states it began rather suddenly. Patient states she thought she noted some discoloration in her left leg a couple days ago. Patient denies any trauma or injury. Patient states her pain has been constant tonight. Patient states it feels like a burning sensation. Patient states it is worse with palpation and even light palpation. Patient denies any paresthesias or weakness. Patient denies any f lizzie or chills. Patient denies any chest pain or shortness of breath. Patient was referred to the emergency department for possible DVT. Chief Complaint: Lower Extremity Injury Informant: patient Onset/Context/Timing Onset: Today Context: Sudden Onset Timing: Continuous Quality of Pain: Burning Location: Medial aspect left lower leg Worsened by: Palpation Relieved by: Nothing Associated Symptoms Associated Symptoms: Negative for Parasthesia, Weakness or Loss of [facility]ion [facility] History Long-term use of high-risk medication Systolic heart failure Major depressive disorder Tremor History of [place] (myocardial infarction) History of TIA (transient ischemic attack) MELQUIADES (obstructive sleep apnea) Separation of muscle (nontraumatic), unspecified site Nonrheumatic mitral (valve) prolapse Hypercholesteremia Fatty liver Edema Diaphragmatic hernia Hirsutism Fracture of nasal bone Insomnia History of UTI Obesity Psoriasis GERD (gastroesophageal reflux disease) CKD (chronic kidney disease) Epileptic seizure, generalized Hypokalemia Hypothyroidism Falls Home Medications ?Medication ?Instructions ?Recorded ?Last Taken ?Type albuterol sulfate 90 mcg/actuation 1 - 2 puff inhalation Q6H PRN PRN 03/05/20 Unknown History aerosol inhaler Sob &/Or Wheezing allopurinol 300 mg tablet 300 mg PO DAILY 03/05/20 Unknown History acetaminophen 325 mg capsule 650 mg PO Q4H PRN fever or pain 06/05/21 Unknown History (Tylenol) artifi.tears(hypromellose)(PF) 0.3 2 drp ophthalmic (eye) .Q1HR PRN 06/05/21 Unknown History % eye drops dry eye(s) atorvastatin 20 mg tablet 20 mg PO QHS 06/05/21 Unknown History buspirone 10 mg tablet 10 mg PO TID 06/05/21 Unknown History levothyroxine 25 mcg capsule 25 mcg PO DAILY 06/05/21 Unknown History loratadine 10 mg capsule 10 mg PO QHS 06/05/21 Unknown History meclizine 25 mg tablet 25 mg PO Q8H PRN Vertigo 06/05/21 Unknown History melatonin 5 mg capsule 10 mg PO QHS PRN insomnia 06/05/21 Unknown History potassium chloride 10 mEq 20 meq PO DAILY 08/26/21 Unknown History capsule,extended release calcium carbonate (Sriram-Gest 200 mg PO DAILY 12/23/21 Unknown History Antacid) cyanocobalamin (vitamin B-12) 1,000 mcg PO DAILY 12/23/21 Unknown History 1,000 mcg tablet guaifenesin 400 mg tablet 400 mg PO Q6H PRN cough 12/23/21 Unknown History menthol 4 % topical gel (Biofreeze 1 applic topical DAILY PRN pain 12/23/21 Unknown History (menthol)) divalproex 250 mg tablet,extended 250 mg PO QAM #30 tabs 08/13/22 Unknown Rx release 24 hr divalproex 500 mg tablet,extended 500 mg PO QHS #30 tabs 08/13/22 Unknown Rx release 24 hr levetiracetam 500 mg tablet 500 mg PO BID #60 tabs 08/13/22 Unknown Rx (Keppra) calcium 600 mg (as 1 tab PO BID 09/26/24 Unknown History carbonate)-vitamin D3 10 mcg (400 unit) tablet desvenlafaxine succinate 50 mg 50 mg PO DAILY 09/26/24 Unknown History tablet,extended release 24 hr famotidine 20 mg tablet 20 mg PO BID 09/26/24 Unknown History lidocaine 5 % topical patch 1 patch topical DAILY 09/26/24 Unknown History lisinopril 20 mg tablet 20 mg PO DAILY 09/26/24 Unknown History magnesium oxide 400 mg (241.3 mg 400 mg PO DAILY 09/26/24 Unknown History magnesium) tablet metoprolol tartrate 25 mg tablet 25 mg PO BID 09/26/24 Unknown History ondansetron 4 mg disintegrating 4 mg PO Q6H PRN nausea and 09/26/24 Unknown Rx tablet vomiting #20 tabs primidone 50 mg tablet 200 mg PO BID 09/26/24 Unknown History lorazepam 1 mg tablet 1 mg PO QHS 10/02/24 Unknown History Allergy/AdvReac Type Severity Reaction Status Date / Time phenytoin Allergy Mild Other Verified 10/02/24 19:16 gabapentin (From Neurontin) Allergy Unknown Unknown Verified 10/02/24 19:16 hydrocodone Allergy Unknown Unknown Verified 10/02/24 19:16 acetaminophen (From Vicodin) Allergy Rash Verified 10/02/24 19:16 erythromycin base Allergy Rash Verified 10/02/24 19:16 (Erythromycin Base) hydrocodone bitartrate (From Allergy Rash Verified 10/02/24 19:16 Vicodin) hydromorphone (From Dilaudid) Allergy Rash Verified 10/02/24 19:16 Penicillins Allergy Rash Verified 10/02/24 19:16 promethazine HCl (From Allergy Vomiting Verified 10/02/24 19:16 Phenergan) tramadol Allergy Rash Verified 10/02/24 19:16 codeine AdvReac Vomiting Verified 10/02/24 19:16 morphine AdvReac Vomiting Verified 10/02/24 19:16 ondansetron HCl (From Zofran) AdvReac Vomiting Verified 10/02/24 19:16 Social History Smoking Status: Never smoker Electronic Cigarette Use: not used second hand exposure: No alcohol intake: never substance use type: does not use ROS ROS ED Constitutional Constitutional ED: Denies chills or fever(s) Eyes Eyes: Denies blurry vision or change in vision ENT ENT ED: Denies rhinorrhea or sore throat Cardiovascular Cardiovascular: Denies chest pain or palpitations Respiratory/Chest Respiratory/Chest: Denies cough or dyspnea Gastrointestinal Gastrointestinal: Denies nausea or vomiting Genitourinary Genitourinary ED: Denies dysuria or hematuria Musculoskeletal Musculoskeletal: Reports back pain; Denies neck pain Integumentary Reports rash; Denies abscess Neurologic Neurologic: Denies headache(s) or weakness Allergic/Immunologic Allergic/Immunologic ED: Denies mouth swelling or urticaria EXAM Physical Exam Const Vital Signs: 10/02/24 19:17 Temperature 98.6 F Temperature Source Oral Pulse Rate 89 Respiratory Rate 18 Blood Pressure 171/79 H Blood Pressure Mean 109 Pulse Ox 97 Oxygen Delivery Method Room Air Positive well nourished and well developed General Appearance ED: well developed and NAD HEENT Reports moist mucous membranes normocephalic and atraumatic Neck full ROM and supple Extremity Extremity Narrative: There is mild tenderness over the medial aspect of the left lower leg. There is no bony crepitus or step-off. There is no deformity noted. There is good range of motion. Sensation was intact to light touch in all digits. Pedal and posterior tibial pulses are equal bilaterally. Neuro oriented x3, CN's II-XII intact bilaterally, moves all extremities and no sensory deficits noted Sensorium / Orientation: alert Motor Exam: strength 5/5 throughout Psych mental status grossly normal Skin no wounds MDM MDM MDM Narrative Medical decision making narrative: Differential diagnosis includes DVT, muscle strain, and contusion. Venous duplex of the left lower extremity will be obtained to assess for DVT. Radiography Diagnostic Testing: Clinical Impression(s) from Imaging Studies Venous Duplex 10/02/24 19:58 IMPRESSION: No sonographic evidence of deep venous thrombosis. Electronically Signed: Howard Chicas DO at 20:41 EST Reading Location ID and State: [facility] / [place] Tel [phone], Service support , Venous duplex of the left lower extremity was obtained. There is no evidence of DVT. This was interpreted by the radiologist was also independently reviewed by myself. Treatment and Re-Evaluation Narrative: Patient was advised of her findings. Patient was advised that this could be a contusion or muscle strain. Patient was instructed to take Tylenol or ibuprofen as needed for pain. Patient was instructed to follow-up with her primary care physician in 5 to 7 days. Patient was instructed return if worse in any way. Patient understood and was agreeable with the plan. All questions were answered. Discharge Plan Triage Chief Complaint: Lower Extremity Injury ED Provider: Geovanny Arndt Dx/Rx/DC Orders Clinical Impression: Pain in left lower leg, HTN (hypertension) Instructions: ED Muscle Strain, Extremity Prescriptions: No Action atorvastatin 20 mg tablet 20 mg PO QHS buspirone 10 mg tablet 10 mg PO TID levothyroxine 25 mcg capsule 25 mcg PO DAILY loratadine 10 mg capsule 10 mg PO QHS melatonin 5 mg capsule 10 mg PO QHS PRN (Reason: insomnia) meclizine 25 mg tablet 25 mg PO Q8H PRN (Reason: Vertigo) acetaminophen [Tylenol] 325 mg capsule 650 mg PO Q4H PRN (Reason: fever or pain) artifi.tears(hypromellose)(PF) 0.3 % drops 2 drp ophthalmic (eye) .Q1HR PRN (Reason: dry eye(s)) guaifenesin 400 mg tablet 400 mg PO Q6H PRN (Reason: cough) potassium chloride 10 mEq capsule, extended release 20 meq PO DAILY Biofreeze (menthol) 4 % gel 1 applic topical DAILY PRN (Reason: pain) calcium carbonate [Sriram-Gest Antacid] 200 mg calcium (500 mg) tablet,chewable 200 mg PO DAILY cyanocobalamin (vitamin B-12) 1,000 mcg tablet 1,000 mcg PO DAILY divalproex 250 mg tablet extended release 24 hr 250 mg PO QAM Qty: 30 4RF divalproex 500 mg tablet extended release 24 hr 500 mg PO QHS Qty: 30 4RF levetiracetam [Keppra] 500 mg tablet 500 mg PO BID Qty: 60 4RF allopurinol 300 MG tablet 300 mg PO DAILY albuterol sulfate 1 PUFF inhaler 1 - 2 puff inhalation Q6H PRN PRN (Reason: Sob &/Or Wheezing) lorazepam 1 mg tablet 1 mg PO QHS famotidine 20 mg tablet 20 mg PO BID calcium carbonate-vitamin D3 600 mg-10 mcg (400 unit) tablet 1 tab PO BID lisinopril 20 mg tablet 20 mg PO DAILY magnesium oxide 400 mg (241.3 mg magnesium) tablet 400 mg PO DAILY lidocaine 5 % adhesive patch,medicated 1 patch topical DAILY metoprolol tartrate 25 mg tablet 25 mg PO BID desvenlafaxine succinate 50 mg tablet extended release 24 hr 50 mg PO DAILY primidone 50 mg tablet 200 mg PO BID ondansetron 4 mg tablet,disintegrating 4 mg PO Q6H PRN (Reason: nausea and vomiting) Qty: 20 0RF Primary Care Provider: Sree Jamison Referrals: Sree Jamison MD [Primary Care Provider] - 5-7 Days Print Language: Armenian Disposition Disposition: Home, Self Care
--- NOTE | 2024-10-02 19:58 | US_ITS ---
INDICATION: RT LEG PAIN EXAMINATION: Ultrasound US Venous Duplex LLE Unilat / Limited TECHNIQUE: Amaral scale, pulse wave, and color flow Doppler imaging was performed of the lower extremity venous system. The bilateral greater saphenous, common femoral, femoral, and popliteal veins were interrogated. COMPARISON: FINDINGS: There is normal compression, augmentation, and signal throughout the visualized deep lower extremity veins. No mass or fluid collection. US/Venous Duplex Imag/Limited/Uni IMPRESSION: No sonographic evidence of deep venous thrombosis. Electronically Signed: Howard Chicas DO at 20:41 EST Reading Location ID and State: [facility] / [place] Tel [phone], Service support ,
[2024-10-02 23:15] VITALS: PULSE 86; RESP 18
--- NOTE | 2024-10-02 23:26 | ED.RN ---
CALLED [facility] TO ARRANGE TRANSPORT BACK TO [place], SPOKE TO JUDI. SHE STATED IT WOULD BE 90 MIN- 2 HOURS ([id number])
[2024-10-03 00:10] VITALS: PULSE 76; RESP 16
[2024-10-03 00:11] VITALS: BP 171/79; PULSE 76; RESP 16; TEMP 37; O2SAT 97
== END 2024-10-03 02:41 | disposition home or self-care (01) ==
PROVIDERS: Emergency Provider Emergency Medicine; PCP Family Medicine; Visit Provider Emergency Medicine
DX: M79.662 Pain in left lower leg (principal); I13.0 Hypertensive heart and chronic kidney disease with heart failure and stage 1 through stage 4 chronic kidney disease, or unspecified chronic kidney disease; I50.22 Chronic systolic (congestive) heart failure; N18.9 Chronic kidney disease, unspecified; E78.00 Pure hypercholesterolemia, unspecified
CPT/HCPCS: 93971; 99285

== ENCOUNTER 2024-10-14 00:05 | Emergency (ER) | payer MEDICAID, SELFPAY ==
[2024-10-14 00:06] VITALS: BP 156/92; PULSE 99; RESP 18; TEMP 37.5; O2SAT 94; BMI 38.2
[2024-10-14] MEDS: Metoclopramide 10 MG/2 ML Vial IV (01:46)
[2024-10-14] MEDS: Ketorolac 15 MG/ML Vial IV (01:46)
[2024-10-14] MEDS: 0.9% Normal Saline (1000mL) 1,000 ML 999 ML IV (01:46)
[2024-10-14] MEDS: DiphenhydrAMINE 50 MG/ML Syringe 25 MG IV (01:46)
--- NOTE | 2024-10-14 01:53 | RAD_ITS ---
INDICATION: cough EXAMINATION/TECHNIQUE: X-RAY - XR Chest 1 View COMPARISON: 09/19/2020 chest radiograph. Findings: Single frontal view of the chest. LUNG PARENCHYMA: No acute focal airspace disease or mass lesion. PLEURA: No pleural effusion. No pneumothorax. HEART/GREAT VESSELS: Cardiomediastinal silhouette is unremarkable. Post procedure change of the distal esophagus again noted. BONES: Osseous structures are unremarkable for age. RAD/Chest 1 View (Portable) IMPRESSION: Chest with no acute disease. Electronically Signed: Alejandro Sanders MD at 2:26 EST ,
[2024-10-14 01:54] LABS: Absolute Lymphocyte Count 1.21 X10^3/uL (0.83-4.51); Absolute Neutrophil Count 5.7 X10^3/uL (2.0-7.7); Basophil# 0.02 X10^3/uL; Basophil% 0.3 % (0-1); Eosinophil# 0.09 X10^3/uL; Eosinophils% 1.1 % (0-5); Hemoglobin 14.2 g/dL (12.0-15.0); Lymphocyte # 1.21 X10^3/ul (0.83-4.51); Lymphocyte % 15.3 % (19-41); Mean Corp Hgb Conc 34.6 g/dL (32-36); Mean Corpuscular Hgb 31.3 pg (27.0-32.0); Mean Corpuscular Volume 90.3 fL (81-99); Mean Platelet Vol. 10.6 fl (6.2-12.0); Monocyte# 0.83 X10^3/uL; Monocyte% 10.5 % (0-10); NRBC Flagged by Analyzer 0 % (0-5); Neutrophil # 5.73 X10^3/uL (2.7-7.7); Neutrophil % 72.4 % (47-70); Platelet Count 102 K/mm3 (150-450); RBC Distribution Width CV 12.3 % (11.6-14.6); RBC Distribution Width SD 40.7 fl (35.1-43.9); Red Blood Count 4.54 M/mm3 (4.2-5.4); White Blood Count 7.9 K/mm3 (4.4-11.0)
[2024-10-14 02:05] VITALS: BP 174/93; PULSE 91; RESP 16; O2SAT 96
[2024-10-14 02:19] LABS: AST(SGOT) 19 U/L (15-37); Alanine Aminotransfer ALT/SGPT 26 U/L (13-56); Albumin, Serum 3.5 g/dL (3.2-5.0); Alkaline Phosphatase 121 U/L (45-117); Anion Gap 3 (5-15); BUN 26 mg/dL (7-18); BUN/Creat Ratio 17.8 RATIO (10-20); Bilirubin, Direct 0.12 mg/dL (0.00-0.30); Calcium,Total 9.2 mg/dL (8.5-10.1); Chloride 102 mmol/L (98-107); Creatinine, Serum 1.46 mg/dL (0.55-1.02); EST Glomerular Filtration Rate 40 mL/min (>60); Est Glom Filt Rate - Afr Amer 49 mL/min (>60); Estimated Creatinine Clearance 41.96 ml/min; Globulin 3.8 g/dL (2.2-4.2); Glucose 104 mg/dL (74-106); Lipase 73 U/L (13-75); Potassium 4.7 mmol/L (3.5-5.1); Protein, Total 7.3 g/dL (6.4-8.2); Sodium Level 135 mmol/L (136-145)
[2024-10-14 02:30] LABS: Bacteria 0 SEEN /hpf (None Seen); Mucous, Urine 0 SEEN /hpf (<or=2+); Red Blood Cells-Urine 0 SEEN /hpf (0-5); Squamous Epithelial Cells - UA 0 SEEN /hpf (5-10); White Blood Cells 0 SEEN /hpf (0-5)
[2024-10-14 02:33] LABS: Color, Urine Yellow (Yellow); Glucose, Dipstick Normal (Normal); Ketone-Dipstick Negative (Negative); Leukocyte Esterase-Dipstick Negative /ul (Negative); Nitrite-Dipstick Negative (Negative); Occult Blood-Urine Negative /ul (Negative); Protein-Dipstick 30 mg/dl (Negative); Specific Gravity, Urine 1.005 (1.002-1.030); Urine Bilirubin Dipstick Negative (Negative); Urine Clarity Clear (Clear); Urine Urobilinogen Normal (Normal)
--- NOTE | 2024-10-14 03:05 | EX.ED.DYSGE1 ---
HPI History of Present Illness Chief Complaint: Nausea/Vomiting Informant: patient Narrative Narrative: Patient is a 49-year-old female with past medical history of hypertension hyperlipidemia and GERD. She states she has had 3 days of nausea vomiting and migraine headache. She denies any fevers or chills. She denies any recent trauma or known sick contact. She states she has been trying [id number] medications without symptom improvement and has her symptoms will not resolve she presents for evaluation [facility] Medical History Long-term use of high-risk medication Systolic heart failure Major depressive disorder Tremor History of [place] (myocardial infarction) History of TIA (transient ischemic attack) MELQUIADES (obstructive sleep apnea) Separation of muscle (nontraumatic), unspecified site Nonrheumatic mitral (valve) prolapse Hypercholesteremia Fatty liver Edema Diaphragmatic hernia Hirsutism Fracture of nasal bone Insomnia History of UTI Obesity Psoriasis GERD (gastroesophageal reflux disease) CKD (chronic kidney disease) Epileptic seizure, generalized Hypokalemia Hypothyroidism [place] Home Medications ?Medication ?Instructions ?Recorded ?Last Taken ?Type albuterol sulfate 90 mcg/actuation 1 - 2 puff inhalation Q6H PRN PRN 03/05/20 Unknown History aerosol inhaler Sob &/Or Wheezing allopurinol 300 mg tablet 300 mg PO DAILY 03/05/20 Unknown History acetaminophen 325 mg capsule 650 mg PO Q4H PRN fever or pain 06/05/21 Unknown History (Tylenol) artifi.tears(hypromellose)(PF) 0.3 2 drp ophthalmic (eye) .Q1HR PRN 06/05/21 Unknown History % eye drops dry eye(s) atorvastatin 20 mg tablet 20 mg PO QHS 06/05/21 Unknown History buspirone 10 mg tablet 10 mg PO TID 06/05/21 Unknown History levothyroxine 25 mcg capsule 25 mcg PO DAILY 06/05/21 Unknown History loratadine 10 mg capsule 10 mg PO QHS 06/05/21 Unknown History meclizine 25 mg tablet 25 mg PO Q8H PRN Vertigo 06/05/21 Unknown History melatonin 5 mg capsule 10 mg PO QHS PRN insomnia 06/05/21 Unknown History potassium chloride 10 mEq 20 meq PO DAILY 08/26/21 Unknown History capsule,extended release calcium carbonate (Sriram-Gest 200 mg PO DAILY 12/23/21 Unknown History Antacid) cyanocobalamin (vitamin B-12) 1,000 mcg PO DAILY 12/23/21 Unknown History 1,000 mcg tablet guaifenesin 400 mg tablet 400 mg PO Q6H PRN cough 12/23/21 Unknown History menthol 4 % topical gel (Biofreeze 1 applic topical DAILY PRN pain 12/23/21 Unknown History (menthol)) divalproex 250 mg tablet,extended 250 mg PO QAM #30 tabs 08/13/22 Unknown Rx release 24 hr divalproex 500 mg tablet,extended 500 mg PO QHS #30 tabs 08/13/22 Unknown Rx release 24 hr levetiracetam 500 mg tablet 500 mg PO BID #60 tabs 08/13/22 Unknown Rx (Keppra) calcium 600 mg (as 1 tab PO BID 09/26/24 Unknown History carbonate)-vitamin D3 10 mcg (400 unit) tablet desvenlafaxine succinate 50 mg 50 mg PO DAILY 09/26/24 Unknown History tablet,extended release 24 hr famotidine 20 mg tablet 20 mg PO BID 09/26/24 Unknown History lidocaine 5 % topical patch 1 patch topical DAILY 09/26/24 Unknown History lisinopril 20 mg tablet 20 mg PO DAILY 09/26/24 Unknown History magnesium oxide 400 mg (241.3 mg 400 mg PO DAILY 09/26/24 Unknown History magnesium) tablet metoprolol tartrate 25 mg tablet 25 mg PO BID 09/26/24 Unknown History ondansetron 4 mg disintegrating 4 mg PO Q6H PRN nausea and 09/26/24 Unknown Rx tablet vomiting #20 tabs primidone 50 mg tablet 200 mg PO BID 09/26/24 Unknown History lorazepam 1 mg tablet 1 mg PO QHS 10/02/24 Unknown History Allergy/AdvReac Type Severity Reaction Status Date / Time phenytoin Allergy Mild Other Verified 10/14/24 01:48 gabapentin (From Neurontin) Allergy Unknown Unknown Verified 10/14/24 01:48 hydrocodone Allergy Unknown Unknown Verified 10/14/24 01:48 acetaminophen (From Vicodin) Allergy Rash Verified 10/14/24 01:48 erythromycin base Allergy Rash Verified 10/14/24 01:48 (Erythromycin Base) hydrocodone bitartrate (From Allergy Rash Verified 10/14/24 01:48 Vicodin) hydromorphone (From Dilaudid) Allergy Rash Verified 10/14/24 01:48 Penicillins Allergy Rash Verified 10/14/24 01:48 promethazine HCl (From Allergy Vomiting Verified 10/14/24 01:48 Phenergan) tramadol Allergy Rash Verified 10/14/24 01:48 codeine AdvReac Vomiting Verified 10/14/24 01:48 morphine AdvReac Vomiting Verified 10/14/24 01:48 ondansetron HCl (From Zofran) AdvReac Vomiting Verified 10/14/24 01:48 Social History Smoking Status: Never smoker Electronic Cigarette Use: not used second hand exposure: No alcohol intake: never substance use type: does not use ROS ROS ED Constitutional Constitutional ED: Denies chills or fever(s) Eyes Eyes: Reports other Details: Positive photophobia ENT ENT ED: Reports rhinorrhea; Denies sore throat Cardiovascular Cardiovascular: Denies chest pain Respiratory/Chest Respiratory/Chest: Reports cough; Denies dyspnea Gastrointestinal Gastrointestinal: Reports abdominal pain, nausea and vomiting; Denies diarrhea Genitourinary Genitourinary ED: Denies dysuria Musculoskeletal Musculoskeletal: Denies myalgias Integumentary Denies rash Neurologic Neurologic: Reports headache(s) Hematologic/Lymphatic Hematologic/Lymphatic: Denies easy bleeding or easy bruising EXAM Physical Exam Const Vital Signs: 10/14/24 00:06 10/14/24 02:05 Temperature 99.5 F H Temperature Source Oral Pulse Rate 99 91 Respiratory Rate 18 16 Blood Pressure 156/92 H 174/93 H Blood Pressure Mean 113 120 Pulse Ox 94 96 Oxygen Delivery Method Room Air Positive well nourished and well developed General Appearance ED: well developed; Negative for pallor HEENT HEENT Narrative: Normocephalic atraumatic Nasal mucosa is hyperemic and boggy There is cobblestoning noted in the posterior pharynx consistent with sinus drainage without airway edema or compromise No secondary findings in the posterior pharynx to suggest infection Eyes PERRL and EOMs intact bilaterally General Eye ED: Negative for scleral icterus Neck supple Neck Narrative: No nuchal rigidity or meningeal signs noted Resp normal respiratory effort and clear to auscultation bilaterally Cardio regular rate and regular rhythm GI non-distended and no masses GI Narrative: Abdomen is soft and nondistended with hyperactive bowel sounds. There is mild diffuse pain with palpation without voluntary guarding or rigidity or pulsatile mass Auscultation: hyperactive bowel sounds Palpation: soft Neuro CN's II-XII intact bilaterally and no sensory deficits noted Sensorium / Orientation: alert Psych mental status grossly normal Skin no rashes or lesions noted General Skin Exam: Negative for jaundice or pallor MDM MDM MDM Narrative Medical decision making narrative: Patient arrived to the ER mildly hypertensive and with low-grade fever. Constellation of symptoms is concerning for pneumonia versus a viral upper respiratory tract infection such as COVID influenza or RSV. With bouts of nausea and vomiting there is concern for acute kidney injury or electrolyte abnormality. Basic labs were obtained which show creatinine near baseline going against RAÚL and no clinically significant electrolyte findings. With nausea and vomiting there is still concern for biliary colic versus acute cholecystitis versus pancreatitis. Patient's lipase is normal going against pancreatitis and her liver enzymes are normal going against biliary colic and without elevation to her white count I have low concern for acute cholecystitis. Viral swab was negative. However after treatment in the ER patient had improvement of symptoms and on reevaluation have remained soft and nonsurgical and therefore I do not feel there is need for further workup and she is otherwise safe for discharge History & Record Review Discussion w/independent historian: Patient Lab Data Attestation: I reviewed the patient's lab results. Labs: Laboratory Results - last 24 hr 10/14/24 10/14/24 01:43 02:20 WBC 7.9 RBC 4.54 Hgb 14.2 Hct 41.0 MCV 90.3 MCH 31.3 MCHC 34.6 RDW Std Deviation 40.7 RDW Coeff of Jeremiah 12.3 Plt Count 102 L MPV 10.6 Immature Gran % (Auto) 0.400 Neut % (Auto) 72.4 H Lymph % (Auto) 15.3 L Maverick % (Auto) 10.5 H Eos % (Auto) 1.1 Baso % (Auto) 0.3 Absolute Neuts (auto) 5.7 Absolute Lymphs (auto) 1.21 Nucleated RBC % 0 Sodium 135 L Potassium 4.7 Chloride 102 Carbon Dioxide 30.0 Anion Gap 3 L BUN 26 H Creatinine 1.46 H Estim Creat Clear Calc 41.96 Est GFR (MDRD) Af Amer 49 L Est GFR (MDRD) Non-Af 40 L BUN/Creatinine Ratio 17.8 Glucose 104 Calcium 9.2 Total Bilirubin 0.40 Direct Bilirubin 0.12 AST 19 ALT 26 Alkaline Phosphatase 121 H Total Protein 7.3 Albumin 3.5 Globulin 3.8 Lipase 73 Urine Color Yellow Urine Clarity Clear Urine pH 7.0 Ur Specific Secor 1.005 Urine Protein 30 H Urine Glucose (UA) Normal Urine Ketones Negative Urine Occult Blood Negative Urine Nitrite Negative Urine Bilirubin Negative Urine Urobilinogen Normal Ur Leukocyte Esterase Negative Urine RBC 0 SEEN Urine WBC 0 SEEN Ur Squamous Epith Cells 0 SEEN Urine Bacteria 0 SEEN Urine Mucus 0 SEEN Radiography Diagnostic Testing: Clinical Impression(s) from Imaging Studies Chest X-Ray 10/14/24 01:53 IMPRESSION: Chest with no acute disease. Electronically Signed: Alejandro Sanders MD at 2:26 EST , Chest x-ray as interpreted by the emergency medicine physician reveals no acute infiltrate pneumothorax or pleural effusion Discharge Plan Triage Chief Complaint: Nausea/Vomiting ED Provider: Fran Naylor Dx/Rx/DC Orders Clinical Impression: Cephalgia, Viral upper respiratory tract infection with cough, Nausea & vomiting Instructions: ED URI, Viral, No Abx (Adult), ED Vomiting (Adult) Prescriptions: No Action atorvastatin 20 mg tablet 20 mg PO QHS buspirone 10 mg tablet 10 mg PO TID levothyroxine 25 mcg capsule 25 mcg PO DAILY loratadine 10 mg capsule 10 mg PO QHS melatonin 5 mg capsule 10 mg PO QHS PRN (Reason: insomnia) meclizine 25 mg tablet 25 mg PO Q8H PRN (Reason: Vertigo) acetaminophen [Tylenol] 325 mg capsule 650 mg PO Q4H PRN (Reason: fever or pain) artifi.tears(hypromellose)(PF) 0.3 % drops 2 drp ophthalmic (eye) .Q1HR PRN (Reason: dry eye(s)) guaifenesin 400 mg tablet 400 mg PO Q6H PRN (Reason: cough) potassium chloride 10 mEq capsule, extended release 20 meq PO DAILY Biofreeze (menthol) 4 % gel 1 applic topical DAILY PRN (Reason: pain) calcium carbonate [Sriram-Gest Antacid] 200 mg calcium (500 mg) tablet,chewable 200 mg PO DAILY cyanocobalamin (vitamin B-12) 1,000 mcg tablet 1,000 mcg PO DAILY divalproex 250 mg tablet extended release 24 hr 250 mg PO QAM Qty: 30 4RF divalproex 500 mg tablet extended release 24 hr 500 mg PO QHS Qty: 30 4RF levetiracetam [Keppra] 500 mg tablet 500 mg PO BID Qty: 60 4RF allopurinol 300 MG tablet 300 mg PO DAILY albuterol sulfate 1 PUFF inhaler 1 - 2 puff inhalation Q6H PRN PRN (Reason: Sob &/Or Wheezing) lorazepam 1 mg tablet 1 mg PO QHS famotidine 20 mg tablet 20 mg PO BID calcium carbonate-vitamin D3 600 mg-10 mcg (400 unit) tablet 1 tab PO BID lisinopril 20 mg tablet 20 mg PO DAILY magnesium oxide 400 mg (241.3 mg magnesium) tablet 400 mg PO DAILY lidocaine 5 % adhesive patch,medicated 1 patch topical DAILY metoprolol tartrate 25 mg tablet 25 mg PO BID desvenlafaxine succinate 50 mg tablet extended release 24 hr 50 mg PO DAILY primidone 50 mg tablet 200 mg PO BID ondansetron 4 mg tablet,disintegrating 4 mg PO Q6H PRN (Reason: nausea and vomiting) Qty: 20 0RF Primary Care Provider: Sree Jamison Referrals: Sree Jamison MD [Primary Care Provider] - Print Language: Luxembourgish Disposition Disposition: Home, Self Care Discharge Date/Time: 10/14/24 08:22
[2024-10-14 03:16] VITALS: BP 158/95; PULSE 92; RESP 16; TEMP 36.6; O2SAT 97
--- NOTE | 2024-10-14 05:16 | ED.RN ---
Report called to Maddie.
[2024-10-14 07:26] LABS: Bedside Glucose 80 mg/dL (74-106)
[2024-10-14] MEDS: Divalproex (ER) 250 MG Tablet PO (07:50)
== END 2024-10-14 08:22 | disposition home or self-care (01) ==
PROVIDERS: Emergency Provider Emergency Medicine; PCP Family Medicine; Visit Provider Emergency Medicine
DX: R51.9 Headache, unspecified (principal); I50.22 Chronic systolic (congestive) heart failure; I13.0 Hypertensive heart and chronic kidney disease with heart failure and stage 1 through stage 4 chronic kidney disease, or unspecified chronic kidney disease; J06.9 Acute upper respiratory infection, unspecified; R11.2 Nausea with vomiting, unspecified; E78.00 Pure hypercholesterolemia, unspecified; N18.9 Chronic kidney disease, unspecified; R05.9 Cough, unspecified; K21.9 Gastro-esophageal reflux disease without esophagitis
CPT/HCPCS: 51701; 71045; 80048; 80076; 81001; 82962; 83690; 85025; 87631; 96361; 96374; 96375; 99285; P9612; A4216

== ENCOUNTER 2024-11-04 13:03 | Emergency (ER) | payer MEDICAID, SELFPAY ==
[2024-11-04 13:04] VITALS: BP 140/81; PULSE 90; RESP 17; TEMP 36.2; O2SAT 98
[2024-11-04 13:24] VITALS: BMI 39.6
--- NOTE | 2024-11-04 14:20 | RAD_ITS ---
EXAM: XR LEFT ANKLE COMPLETE, 3 OR MORE VIEWS CLINICAL INDICATION: INJURY TECHNIQUE: Frontal, lateral and oblique views of the left ankle. COMPARISON: No relevant prior studies available. FINDINGS: Acute nondisplaced fracture of involving the distal fibula head with adjacent soft tissue swelling. Widening of the lateral ankle mortise suggests ankle instability and possible ligamentous injury. No other acute or healing fracture or malalignment. RAD/Ankle min 3 Views IMPRESSION: Acute nondisplaced fracture of involving the distal fibula head with adjacent soft tissue swelling. Widening of the lateral ankle mortise suggests ankle instability and possible ligamentous injury. Electronically Signed: Fran Valencia MD at 15:48 EST ,
--- NOTE | 2024-11-04 14:20 | RAD_ITS ---
EXAM: XR LEFT TIBIA AND FIBULA, 2 VIEWS CLINICAL INDICATION: injury TECHNIQUE: Frontal and lateral views of the left tibia and fibula. COMPARISON: No relevant prior studies available. FINDINGS: BONES/JOINTS: Acute nondisplaced fracture of the fibular head with adjacent soft tissue swelling. Preservation of the joint space. No sclerotic or destructive changes observed. SOFT TISSUES: See above. RAD/Tibia & Fibula 2 Views IMPRESSION: Acute nondisplaced fracture of the fibular head with adjacent soft tissue swelling. No other acute fracture. Electronically Signed: Fran Valencia MD at 15:51 EST ,
--- NOTE | 2024-11-04 14:20 | RAD_ITS ---
EXAM: XR LEFT FOOT COMPLETE, 3 OR MORE VIEWS CLINICAL INDICATION: injury TECHNIQUE: Frontal, lateral and oblique views of the left foot. COMPARISON: No relevant prior studies available. FINDINGS: BONES/JOINTS: Unremarkable. No acute fracture. No subluxation. Normal alignment. Preservation of the joint space. No sclerotic or destructive changes observed. SOFT TISSUES: Unremarkable. No soft tissue swelling or gas. No radiopaque foreign body. RAD/Foot min 3 Views IMPRESSION: Negative left foot x-rays. Electronically Signed: Fran Valencia MD at 15:45 EST ,
--- NOTE | 2024-11-04 14:35 | EX.ED.DYSGE1 ---
HPI <GAYLE Choi - Last Filed: 11/04/24 16:35> History of Present Illness Chief Complaint: Lower Extremity Injury Narrative Narrative: Patient is a 49-year-old female who is in assisted living so history hypertension lipidemia epilepsy, myoclonus who presents [facility] for a left lower leg injury. She was up in her wheelchair that is motorized, she struck a wall and felt a pop. Patient says she has pain from the knee all the way down to the toes. She denies any other injury. <Dr. Mathew Perez DO - Last Filed: 11/05/24 10:03> History of Present Illness Informant: patient [facility] <GAYLE Choi - Last Filed: 11/04/24 16:35> [facility] Medical History Long-term use of high-risk medication Systolic heart failure Major depressive disorder Tremor History of ID (myocardial infarction) History of TIA (transient ischemic attack) MELQUIADES (obstructive sleep apnea) Separation of muscle (nontraumatic), unspecified site Nonrheumatic mitral (valve) prolapse Hypercholesteremia Fatty liver Edema Diaphragmatic hernia Hirsutism Fracture of nasal bone Insomnia History of UTI Obesity Psoriasis GERD (gastroesophageal reflux disease) CKD (chronic kidney disease) Epileptic seizure, generalized Hypokalemia Hypothyroidism [place] Home Medications ?Medication ?Instructions ?Recorded ?Last Taken ?Type albuterol sulfate 90 mcg/actuation 1 - 2 puff inhalation Q6H PRN PRN 03/05/20 Unknown History aerosol inhaler Sob &/Or Wheezing allopurinol 300 mg tablet 300 mg PO DAILY 03/05/20 Unknown History acetaminophen 325 mg capsule 650 mg PO Q4H PRN fever or pain 06/05/21 Unknown History (Tylenol) artifi.tears(hypromellose)(PF) 0.3 2 drp ophthalmic (eye) .Q1HR PRN 06/05/21 Unknown History % eye drops dry eye(s) atorvastatin 20 mg tablet 20 mg PO QHS 06/05/21 Unknown History buspirone 10 mg tablet 10 mg PO TID 06/05/21 Unknown History levothyroxine 25 mcg capsule 25 mcg PO DAILY 06/05/21 Unknown History loratadine 10 mg capsule 10 mg PO QHS 06/05/21 Unknown History meclizine 25 mg tablet 25 mg PO Q8H PRN Vertigo 06/05/21 Unknown History melatonin 5 mg capsule 10 mg PO QHS PRN insomnia 06/05/21 Unknown History potassium chloride 10 mEq 20 meq PO BID 08/26/21 Unknown History capsule,extended release calcium carbonate (Sriram-Gest 200 mg PO DAILY 12/23/21 Unknown History Antacid) cyanocobalamin (vitamin B-12) 1,000 mcg PO DAILY 12/23/21 Unknown History 1,000 mcg tablet guaifenesin 400 mg tablet 400 mg PO Q6H PRN cough 12/23/21 Unknown History menthol 4 % topical gel (Biofreeze 1 applic topical DAILY PRN pain 12/23/21 Unknown History (menthol)) divalproex 250 mg tablet,extended 250 mg PO QAM #30 tabs 08/13/22 Unknown Rx release 24 hr divalproex 500 mg tablet,extended 500 mg PO QHS #30 tabs 08/13/22 Unknown Rx release 24 hr levetiracetam 500 mg tablet 500 mg PO BID #60 tabs 08/13/22 Unknown Rx (Keppra) calcium 600 mg (as 1 tab PO BID 09/26/24 Unknown History carbonate)-vitamin D3 10 mcg (400 unit) tablet desvenlafaxine succinate 50 mg 50 mg PO DAILY 09/26/24 Unknown History tablet,extended release 24 hr famotidine 20 mg tablet 20 mg PO BID 09/26/24 Unknown History lidocaine 5 % topical patch 1 patch topical DAILY 09/26/24 Unknown History lisinopril 20 mg tablet 20 mg PO DAILY 09/26/24 Unknown History magnesium oxide 400 mg (241.3 mg 400 mg PO DAILY 09/26/24 Unknown History magnesium) tablet metoprolol tartrate 25 mg tablet 25 mg PO BID 09/26/24 Unknown History ondansetron 4 mg disintegrating 4 mg PO Q6H PRN nausea and 09/26/24 Unknown Rx tablet vomiting #20 tabs primidone 50 mg tablet 200 mg PO BID 09/26/24 Unknown History lorazepam 1 mg tablet 1 mg PO QHS 10/02/24 Unknown History amlodipine 5 mg tablet 5 mg PO DAILY 11/04/24 Unknown History Allergy/AdvReac Type Severity Reaction Status Date / Time phenytoin Allergy Mild Other Verified 11/04/24 13:04 gabapentin (From Neurontin) Allergy Unknown Unknown Verified 11/04/24 13:04 hydrocodone Allergy Unknown Unknown Verified 11/04/24 13:04 acetaminophen (From Vicodin) Allergy Rash Verified 11/04/24 13:04 erythromycin base Allergy Rash Verified 11/04/24 13:04 (Erythromycin Base) hydrocodone bitartrate (From Allergy Rash Verified 11/04/24 13:04 Vicodin) hydromorphone (From Dilaudid) Allergy Rash Verified 11/04/24 13:04 Penicillins Allergy Rash Verified 11/04/24 13:04 promethazine HCl (From Allergy Vomiting Verified 11/04/24 13:04 Phenergan) tramadol Allergy Rash Verified 11/04/24 13:04 codeine AdvReac Vomiting Verified 11/04/24 13:04 morphine AdvReac Vomiting Verified 11/04/24 13:04 ondansetron HCl (From Zofran) AdvReac Vomiting Verified 11/04/24 13:04 Social History Smoking Status: Former smoker Electronic Cigarette Use: not used second hand exposure: No alcohol intake: never substance use type: does not use ROS <GAYLE Choi - Last Filed: 11/04/24 16:35> ROS ED [facility]INT Narrative Constitutional: Negative for fever, chills, weight loss, weakness Eyes: Negative for vision loss, vision change, double vision ENT: Negative for any sore throat, ear pain, congestion Cardiovascular: Negative for any chest pain, tightness, palpitations Respiratory: Negative for any cough, sputum production, hemoptysis, dyspnea, dyspnea on exertion, orthopnea Gastrointestinal: Negative for any abdominal pain, nausea, vomiting, diarrhea, constipation, blood in stool, blood in vomit : Negative for any urinary frequency, dysuria, retention, blood in urine Muscle skeletal: Negative for any neck pain, back pain. Positive left foot, left ankle pain Neurological: Negative for any headache, syncope, dizziness Skin: Negative for any rashes, itching, abrasions, lacerations Psychiatric: Negative for any depression, anxiety, stress, suicidal ideation, homicidal ideation Hematologic: Negative for any excessive bruising, easy bleeding EXAM <GAYLE Choi - Last Filed: 11/04/24 16:35> Physical Exam Narrative Exam Narrative: Vital signs reviewed. HEET: Head normocephalic atraumatic, TMs clear bilaterally. Posterior pharynx is clear, moist mucous membranes. Nares clear bilaterally. Neck: Supple with no lymphadenopathy or tenderness. No signs of meningismus. Cardiac: Regular rate and rhythm no murmurs gallops or rubs, equal peripheral pulses bilaterally. Respiratory: Lungs clear to auscultation bilaterally. No chest tenderness. Abdomen: Soft, nontender, nondistended. No abdominal bruit or pulsatile masses. No hepatosplenomegaly Extremities: No peripheral edema, no signs of gross trauma or deformity. Patient does have some swelling to the lateral malleolus. However patient states she has pain on all palpation from the knee all the way down to the toes. Is able to wiggle the toes. +2 radial pulse. Neuro: Cranial nerves II through XII intact, no focal neurological deficits. Skin: Clean dry and intact with no rash, purpura, petechiae, vesicles or pustules. Backs/flank: No CVA tenderness, no midline spinal tenderness, no deformity. Psych: Normal mood and affect. No SI, HI or acute psychosis. Const Vital Signs: 11/04/24 13:04 11/04/24 18:00 11/04/24 19:11 Temperature 97.2 F L 97.9 F Temperature Source Temporal Pulse Rate 90 80 80 Respiratory Rate 17 16 16 Blood Pressure 140/81 H 158/68 H 140/68 H Blood Pressure Mean 100 98 92 Pulse Ox 98 99 99 Oxygen Delivery Method Room Air <Dr. Mathew Perez DO - Last Filed: 11/05/24 10:03> Physical Exam Const Vital Signs: 11/04/24 13:04 11/04/24 18:00 11/04/24 19:11 Temperature 97.2 F L 97.9 F Temperature Source Temporal Pulse Rate 90 80 80 Respiratory Rate 17 16 16 Blood Pressure 140/81 H 158/68 H 140/68 H Blood Pressure Mean 100 98 92 Pulse Ox 98 99 99 Oxygen Delivery Method Room Air [facility] <GAYLE Choi - Last Filed: 11/04/24 16:35> MDM Radiography Diagnostic Testing: Clinical Impression(s) from Imaging Studies Ankle X-Ray 11/04/24 14:20 IMPRESSION: Acute nondisplaced fracture of involving the distal fibula head with adjacent soft tissue swelling. Widening of the lateral ankle mortise suggests ankle instability and possible ligamentous injury. Electronically Signed: Fran Valencia MD at 15:48 EST , Foot X-Ray 11/04/24 14:20 IMPRESSION: Negative left foot x-rays. Electronically Signed: Fran Valencia MD at 15:45 EST , Tibia/Fibula X-Ray 11/04/24 14:20 IMPRESSION: Acute nondisplaced fracture of the fibular head with adjacent soft tissue swelling. No other acute fracture. Electronically Signed: Fran Valencia MD at 15:51 EST , Treatment and Re-Evaluation :: Differential diagnosis includes however is not limited to: Foot fracture, ankle fracture, contusions, sprains of the foot or ankle Patient appears generally well, vital signs are stable, patient is nontoxic-appearing. Presenting to the emergency department complaints of left foot, left ankle pain. Patient does have pain to her knee and mid tibia however this is benign. Patient's pain is mostly in the lower leg. Patient will receive IM morphine, oral Zofran. Patient received x-rays of the knee tib-fib ankle and foot. All radiologic examinations were read, reviewed by the emergency department attending. From these reads, a plan of care will be put in place. Patient's x-ray of the tibia-fibula shows acute nondisplaced fracture of the fibular head. X-ray of the foot was unremarkable. Knee was unremarkable. Patient was given IM morphine. Patient be placed in a boot prosthesis. Patient was asked if she would prefer [place] or Percocet for her discharge. She states she does not want anything. She did state that they do give morphine injections at this facility, I state that this is not appropriate. Patient states that she does not want any ibuprofen and Tylenol. Patient will follow-up closely with Dr. Ratliff. All questions were answered, patient stable for discharge. Instructed return for any worsening symptoms. Patient normally gets around by her scooter, she uses the walker for any transfers. She will be fine with the boot. Stable for discharge <Dr. Mathew Perez, DO - Last Filed: 11/05/24 10:03> MDM Radiography Diagnostic Testing: Clinical Impression(s) from Imaging Studies Ankle X-Ray 11/04/24 14:20 IMPRESSION: Acute nondisplaced fracture of involving the distal fibula head with adjacent soft tissue swelling. Widening of the lateral ankle mortise suggests ankle instability and possible ligamentous injury. Electronically Signed: Frna Valencia MD at 15:48 EST Reading Location ID and State: [employer] / [employer] Tel , Service support , Foot X-Ray 11/04/24 14:20 IMPRESSION: Negative left foot x-rays. Electronically Signed: Fran Valencia MD at 15:45 EST Reading Location ID and State: [facility] / [place] Tel , Service support , Tibia/Fibula X-Ray 11/04/24 14:20 IMPRESSION: Acute nondisplaced fracture of the fibular head with adjacent soft tissue swelling. No other acute fracture. Electronically Signed: Fran Valencia MD at 15:51 EST , Treatment and Re-Evaluation :: Differential diagnosis includes however is not limited to: Foot fracture, ankle fracture, contusions, sprains of the foot or ankle Patient appears generally well, vital signs are stable, patient is nontoxic-appearing. Presenting to the emergency department complaints of left foot, left ankle pain. Patient does have pain to her knee and mid tibia however this is benign. Patient's pain is mostly in the lower leg. Patient will receive IM morphine, oral Zofran. Patient received x-rays of the knee tib-fib ankle and foot. All radiologic examinations were read, reviewed by the emergency department attending. From these reads, a plan of care will be put in place. Patient's x-ray of the tibia-fibula shows acute nondisplaced fracture of the fibular head. X-ray of the foot was unremarkable. Knee was unremarkable. Patient was given IM morphine. Patient be placed in a boot prosthesis. Patient was asked if she would prefer [place] or Percocet for her discharge. She states she does not want anything. She did state that they do give morphine injections at this facility, I state that this is not appropriate. Patient states that she does not want any ibuprofen and Tylenol. Patient will follow-up closely with Dr. Ratliff. All questions were answered, patient stable for discharge. Instructed return for any worsening symptoms. Patient normally gets around by her scooter, she uses the walker for any transfers. She will be fine with the boot. Stable for discharge I have personally performed a face to face assessment of the patient and have reviewed the [facility] Note. I performed a substantive portion of the visit including all aspects of the following. My huang findings include: History is 49-year-old female from assisted living reportedly was in her wheelchair wall resulting in ankle injury. Exam is: Tenderness swelling lateral malleolus. Neurovascular intact. There is not appear to be an open injury. Medical Decison Making my independent interpretation of the plain films of the tibia and fibula, foot and ankle is a distal fibular fracture with possible widening of the joint mortise. Patient is essentially not very ambulatory. I think a boot orthosis would be best for her as I would worry if a posterior stirrup splint may result in a higher fall risk during transitioning. She can follow-up with orthopedics. Discharge Plan Triage Chief Complaint: Lower Extremity Injury ED Midlevel Provider: Sree Felix ED Provider: Mathew Perez Dx/Rx/DC Orders Clinical Impression: Fracture of distal end of fibula, Contusion of foot Instructions: ED Ankle Fracture Prescriptions: No Action atorvastatin 20 mg tablet 20 mg PO QHS buspirone 10 mg tablet 10 mg PO TID levothyroxine 25 mcg capsule 25 mcg PO DAILY loratadine 10 mg capsule 10 mg PO QHS melatonin 5 mg capsule 10 mg PO QHS PRN (Reason: insomnia) meclizine 25 mg tablet 25 mg PO Q8H PRN (Reason: Vertigo) acetaminophen [Tylenol] 325 mg capsule 650 mg PO Q4H PRN (Reason: fever or pain) artifi.tears(hypromellose)(PF) 0.3 % drops 2 drp ophthalmic (eye) .Q1HR PRN (Reason: dry eye(s)) guaifenesin 400 mg tablet 400 mg PO Q6H PRN (Reason: cough) potassium chloride 10 mEq capsule, extended release 20 meq PO BID Biofreeze (menthol) 4 % gel 1 applic topical DAILY PRN (Reason: pain) calcium carbonate [Sriram-Gest Antacid] 200 mg calcium (500 mg) tablet,chewable 200 mg PO DAILY cyanocobalamin (vitamin B-12) 1,000 mcg tablet 1,000 mcg PO DAILY divalproex 250 mg tablet extended release 24 hr 250 mg PO QAM Qty: 30 4RF divalproex 500 mg tablet extended release 24 hr 500 mg PO QHS Qty: 30 4RF levetiracetam [Keppra] 500 mg tablet 500 mg PO BID Qty: 60 4RF allopurinol 300 MG tablet 300 mg PO DAILY albuterol sulfate 1 PUFF inhaler 1 - 2 puff inhalation Q6H PRN PRN (Reason: Sob &/Or Wheezing) lorazepam 1 mg tablet 1 mg PO QHS Rx Instructions: 1mg at night and 2mg in the morning famotidine 20 mg tablet 20 mg PO BID calcium carbonate-vitamin D3 600 mg-10 mcg (400 unit) tablet 1 tab PO BID lisinopril 20 mg tablet 20 mg PO DAILY magnesium oxide 400 mg (241.3 mg magnesium) tablet 400 mg PO DAILY lidocaine 5 % adhesive patch,medicated 1 patch topical DAILY metoprolol tartrate 25 mg tablet 25 mg PO BID desvenlafaxine succinate 50 mg tablet extended release 24 hr 50 mg PO DAILY primidone 50 mg tablet 200 mg PO BID ondansetron 4 mg tablet,disintegrating 4 mg PO Q6H PRN (Reason: nausea and vomiting) Qty: 20 0RF amlodipine 5 mg tablet 5 mg PO DAILY Primary Care Provider: Sree Jamison Referrals: Haseeb Ratliff DO [Med Staff - Active Staff] - Sree Jamison MD [Primary Care Provider] - Activity Restrictions/Additional Instructions: Please follow-up outpatient. Follow-up with orthopedics regarding her distal fibular fracture. Use the boot until seen by your follow-up doctor. Print Language: Setswana Disposition Disposition: Home, Self Care Discharge Date/Time: 11/04/24 19:12
[2024-11-04] MEDS: Ondansetron ODT 4 MG Tablet PO (14:37)
[2024-11-04] MEDS: Morphine 4 MG/ML Syringe IM (14:37)
[2024-11-04 18:00] VITALS: BP 158/68; PULSE 80; RESP 16; O2SAT 99
[2024-11-04 19:11] VITALS: BP 140/68; PULSE 80; RESP 16; TEMP 36.6; O2SAT 99
== END 2024-11-04 19:12 | disposition home or self-care (01) ==
PROVIDERS: Emergency Provider Emergency Medicine; PCP Family Medicine; Visit Provider Emergency Medicine
DX: S82.832A Other fracture of upper and lower end of left fibula, initial encounter for closed fracture (principal); I50.22 Chronic systolic (congestive) heart failure; I13.0 Hypertensive heart and chronic kidney disease with heart failure and stage 1 through stage 4 chronic kidney disease, or unspecified chronic kidney disease; N18.9 Chronic kidney disease, unspecified; E78.00 Pure hypercholesterolemia, unspecified; S90.32XA Contusion of left foot, initial encounter; Z87.891 Personal history of nicotine dependence; Z79.899 Other long term (current) drug therapy; W22.09XA Striking against other stationary object, initial encounter
CPT/HCPCS: 73590; 73610; 73630; 96372; 99284

== ENCOUNTER 2024-11-06 11:12 | Emergency (ER) | payer MEDICAID, SELFPAY ==
[2024-11-06 11:14] VITALS: BP 156/95; PULSE 91; RESP 18; TEMP 37.4; O2SAT 98; BMI 36.1
--- NOTE | 2024-11-06 12:25 | ED.VIS.GI ---
HPI HPI - GI History of Present Illness Chief Complaint: Abd Pain Informant: patient Abdominal Pain/Flank Pain Onset: Today and Hours Context: Gradual Onset Timing: Continuous Location: RLQ and LLQ Current Severity: Mild Maximum Severity: Mild Worsened by: Nothing Relieved by: Nothing Nausea/Vomiting/Emesis GI Symptom: Negative for Nausea or Vomiting Diarrhea/Melena/Hematochezia GI Symptom: Negative for Diarrhea, Melena or Hematochezia Associated Symptoms Associated Symptoms: Negative for Dysuria, Frequency, Hematuria or Urgency Narrative Narrative: 49-year-old female prior appendectomy with a history of endometriosis. She is also had surgery for reflux. States she is having bilateral lower quadrant abdominal pain and suprapubic discomfort this morning for the last several hours. She describes it as aching. She denies any vomiting or diarrhea. Had a small bowel movement today. Denies any blood. No fever. No dysuria. Prior similar symptoms: Yes Recent Illness/Hospitalization: No PFSH PFSH Medical History Long-term use of high-risk medication Systolic heart failure Major depressive disorder Tremor History of NV (myocardial infarction) History of TIA (transient ischemic attack) MELQUIADES (obstructive sleep apnea) Separation of muscle (nontraumatic), unspecified site Nonrheumatic mitral (valve) prolapse Hypercholesteremia Fatty liver Edema Diaphragmatic hernia Hirsutism Fracture of nasal bone Insomnia History of UTI Obesity Psoriasis GERD (gastroesophageal reflux disease) CKD (chronic kidney disease) Epileptic seizure, generalized Hypokalemia Hypothyroidism [place] Home Medications ?Medication ?Instructions ?Recorded ?Last Taken ?Type albuterol sulfate 90 mcg/actuation 1 - 2 puff inhalation Q6H PRN PRN 03/05/20 Unknown History aerosol inhaler Sob &/Or Wheezing allopurinol 300 mg tablet 300 mg PO DAILY 03/05/20 Unknown History acetaminophen 325 mg capsule 650 mg PO Q4H PRN fever or pain 06/05/21 Unknown History (Tylenol) artifi.tears(hypromellose)(PF) 0.3 2 drp ophthalmic (eye) .Q1HR PRN 06/05/21 Unknown History % eye drops dry eye(s) atorvastatin 20 mg tablet 20 mg PO QHS 06/05/21 Unknown History buspirone 10 mg tablet 10 mg PO TID 06/05/21 Unknown History levothyroxine 25 mcg capsule 25 mcg PO DAILY 06/05/21 Unknown History loratadine 10 mg capsule 10 mg PO QHS 06/05/21 Unknown History meclizine 25 mg tablet 25 mg PO Q8H PRN Vertigo 06/05/21 Unknown History melatonin 5 mg capsule 10 mg PO QHS PRN insomnia 06/05/21 Unknown History potassium chloride 10 mEq 20 meq PO BID 08/26/21 Unknown History capsule,extended release calcium carbonate (Sriram-Gest 200 mg PO DAILY 12/23/21 Unknown History Antacid) cyanocobalamin (vitamin B-12) 1,000 mcg PO DAILY 12/23/21 Unknown History 1,000 mcg tablet guaifenesin 400 mg tablet 400 mg PO Q6H PRN cough 12/23/21 Unknown History menthol 4 % topical gel (Biofreeze 1 applic topical DAILY PRN pain 12/23/21 Unknown History (menthol)) divalproex 250 mg tablet,extended 250 mg PO QAM #30 tabs 08/13/22 Unknown Rx release 24 hr divalproex 500 mg tablet,extended 500 mg PO QHS #30 tabs 08/13/22 Unknown Rx release 24 hr levetiracetam 500 mg tablet 500 mg PO BID #60 tabs 08/13/22 Unknown Rx (Keppra) calcium 600 mg (as 1 tab PO BID 09/26/24 Unknown History carbonate)-vitamin D3 10 mcg (400 unit) tablet desvenlafaxine succinate 50 mg 50 mg PO DAILY 09/26/24 Unknown History tablet,extended release 24 hr famotidine 20 mg tablet 20 mg PO BID 09/26/24 Unknown History lidocaine 5 % topical patch 1 patch topical DAILY 09/26/24 Unknown History lisinopril 20 mg tablet 20 mg PO DAILY 09/26/24 Unknown History magnesium oxide 400 mg (241.3 mg 400 mg PO DAILY 09/26/24 Unknown History magnesium) tablet metoprolol tartrate 25 mg tablet 25 mg PO BID 09/26/24 Unknown History ondansetron 4 mg disintegrating 4 mg PO Q6H PRN nausea and 09/26/24 Unknown Rx tablet vomiting #20 tabs primidone 50 mg tablet 200 mg PO BID 09/26/24 Unknown History lorazepam 1 mg tablet 1 mg PO QHS 10/02/24 Unknown History amlodipine 5 mg tablet 5 mg PO DAILY 11/04/24 Unknown History Allergy/AdvReac Type Severity Reaction Status Date / Time phenytoin Allergy Mild Other Verified 11/06/24 11:14 gabapentin (From Neurontin) Allergy Unknown Unknown Verified 11/06/24 11:14 hydrocodone Allergy Unknown Unknown Verified 11/06/24 11:14 acetaminophen (From Vicodin) Allergy Rash Verified 11/06/24 11:14 erythromycin base Allergy Rash Verified 11/06/24 11:14 (Erythromycin Base) hydrocodone bitartrate (From Allergy Rash Verified 11/06/24 11:14 Vicodin) hydromorphone (From Dilaudid) Allergy Rash Verified 11/06/24 11:14 Penicillins Allergy Rash Verified 11/06/24 11:14 promethazine HCl (From Allergy Vomiting Verified 11/06/24 11:14 Phenergan) tramadol Allergy Rash Verified 11/06/24 11:14 codeine AdvReac Vomiting Verified 11/06/24 11:14 morphine AdvReac Vomiting Verified 11/06/24 11:14 ondansetron HCl (From Zofran) AdvReac Vomiting Verified 11/06/24 11:14 Social History Smoking Status: Former smoker Electronic Cigarette Use: not used second hand exposure: No alcohol intake: never substance use type: does not use ROS ROS ED ROS Narrative Abdominal pain. Constitutional Constitutional ED: Denies chills or fever(s) ENT ENT ED: Denies ear pain Cardiovascular Cardiovascular: Denies chest pain Respiratory/Chest Respiratory/Chest: Denies cough or dyspnea Gastrointestinal Gastrointestinal: Reports abdominal pain; Denies constipation, diarrhea, melena, nausea or vomiting Genitourinary Genitourinary ED: Denies dysuria or hematuria Musculoskeletal Musculoskeletal: Denies arthralgias Integumentary Denies abscess Neurologic Neurologic: Denies headache(s) Psychiatric Psychiatric: Denies anxiety Endocrine Endocrinology: Denies polydipsia or polyphagia Hematologic/Lymphatic Hematologic/Lymphatic: Denies easy bleeding Allergic/Immunologic Allergic/Immunologic ED: Denies mouth swelling EXAM Physical Exam Narrative Exam Narrative: 49-year-old female no acute distress vital signs stable temperature nine 9.4. She does not look septic or toxic. No distress. H EENT exam pupils round reactive light. Moist mucous membranes. Neck nontender. Lungs clear to auscultation. Heart regular rhythm rate about 90 no murmur. Chest wall ribs nontender. Abdomen soft nondistended normal bowel sounds no peritoneal signs. Bilateral lower quadrant tenderness. No hernia or mass. No obstruction. No pulsatile mass. Moving all 4 extremities. She is a walking boot on her left lower extremity. Back nontender. Neurologically she is awake and alert. No focal motor deficits. Answering questions following commands. Const Vital Signs: 11/06/24 11:14 11/06/24 13:38 Temperature 99.4 F H Temperature Source Oral Pulse Rate 91 87 Respiratory Rate 18 19 H Blood Pressure 156/95 H Blood Pressure Mean 115 Pulse Ox 98 100 Oxygen Delivery Method Room Air Positive well nourished, well developed and obese; Negative for cachectic, contractures or unkempt General Appearance ED: well developed and NAD; Negative for unkempt, cachectic, contractures or pallor Nutritional Appearance: obese; Negative for cachectic HEENT Reports moist mucous membranes normocephalic and atraumatic Eyes PERRL and EOMs intact bilaterally Neck no lymphadenopathy, supple and no JVD Resp normal respiratory effort and clear to auscultation bilaterally Cardio regular rate, regular rhythm, S1 normal heart sound, S2 normal heart sound and no murmurs GI non-distended and no masses; Negative for non-tender GI Narrative: Bilateral lower quadrant abdominal tenderness. Palpation: soft and tender; Negative for guarding, rigid, hernia, mass or rebound tenderness present Back/Spine no CVA tenderness Cervical Spine: Negative for cervical spine tenderness Thoracic Spine / Upper Back: Negative for thoracic spinal tenderness Lumbar Spine / Lower Back: Negative for lumbar spinal tenderness Extremity full ROM General Extremety ED: Negative for edema or tenderness General Extremity: Negative for edema Neuro CN's II-XII intact bilaterally and moves all extremities Sensorium / Orientation: alert, oriented to person and oriented to place Motor Exam: strength 5/5 throughout Psych mental status grossly normal and thought process normal Appearance: Negative for unkempt Skin no wounds General Skin Exam: Negative for jaundice or pallor Lesions: no lesions Rashes: no rashes Trauma: Negative for abrasion MDM MDM MDM Narrative Medical decision making narrative: 49-year-old female prior appendectomy complaining of bilateral lower quadrant abdominal pain that began this morning. CAT scan labs are pending. Morphine for pain. Zofran for nausea. Differential would include UTI, diverticulitis, bowel obstruction, constipation,... Repeat exam patient doing well at 2:50 PM. Abdomen is benign. Test results unremarkable. Patient be discharged home with outpatient follow-up. Increase stool in the colon consistent constipation. History & Record Review Discussion w/independent historian: Patient Additional record(s) reviewed:: Prior inpatient record, Prior outpatient record, Prior ED visit and Prior labs Lab Data Attestation: I reviewed the patient's lab results. Lab results narrative: CBC white count of 9. H&H 12.8 and 37. Platelets 111. Electrolytes show sodium 130. Gap 6. BUN 26 creatinine 1.23. Glucose 100. Liver enzymes are unremarkable other than alk phos of 128. Lipase 85. Serum test negative. UA shows 5-10 white cells. However it is contaminated with 5-10 epithelial cells 1+ bacteria no nitrates. That will not be treated. Labs: Laboratory Results - last 24 hr 11/06/24 11/06/24 12:39 13:34 WBC 9.3 RBC 4.22 Hgb 12.8 Hct 37.5 MCV 88.9 MCH 30.3 MCHC 34.1 RDW Std Deviation 38.5 RDW Coeff of Jeremiah 12.1 Plt Count 111 L MPV 10.7 Immature Gran % (Auto) 0.600 Neut % (Auto) 78.3 H Lymph % (Auto) 13.0 L [place] % (Auto) 7.3 Eos % (Auto) 0.5 Baso % (Auto) 0.3 Absolute Neuts (auto) 7.3 Absolute Lymphs (auto) 1.21 Nucleated RBC % 0 Sodium 130 L Potassium 4.6 Chloride 102 Carbon Dioxide 22.0 Anion Gap 6 BUN 26 H Creatinine 1.23 H Estim Creat Clear Calc 51.06 Est GFR (MDRD) Af Amer 59 L Est GFR (MDRD) Non-Af 49 L BUN/Creatinine Ratio 21.1 H Glucose 100 Calcium 8.7 Total Bilirubin 0.30 AST 27 ALT 28 Alkaline Phosphatase 128 H Total Protein 6.7 Albumin 3.1 L Globulin 3.6 Albumin/Globulin Ratio 0.9 Lipase 85 H Serum , Qual NEGATIVE Urine Color Yellow Urine Clarity Cloudy Urine pH 7.0 Ur Specific [place] 1.010 Urine Protein 30 H Urine Glucose (UA) Normal Urine Ketones Negative Urine Occult Blood 10 H Urine Nitrite Negative Urine Bilirubin Negative Urine Urobilinogen Normal Ur Leukocyte Esterase 500 H Urine RBC 0 SEEN Urine WBC 5-10 SEEN Ur Squamous Epith Cells 5-10 SEEN Urine Bacteria 1+ Urine Mucus 0 SEEN Radiography Diagnostic Testing: Clinical Impression(s) from Imaging Studies Abdomen/Pelvis CT 11/06/24 13:00 IMPRESSION: Stable scarring at the lung bases. Fatty infiltration of the liver. Prior hiatal hernia repair. Electronically Signed: Son Hernandez MD at 13:36 EST , Discharge Plan Triage Chief Complaint: Abd Pain ED Provider: Tim Newby Dx/Rx/DC Orders Clinical Impression: Abdominal pain, Constipation Instructions: ED Constipation (Adult) Prescriptions: No Action atorvastatin 20 mg tablet 20 mg PO QHS buspirone 10 mg tablet 10 mg PO TID levothyroxine 25 mcg capsule 25 mcg PO DAILY loratadine 10 mg capsule 10 mg PO QHS melatonin 5 mg capsule 10 mg PO QHS PRN (Reason: insomnia) meclizine 25 mg tablet 25 mg PO Q8H PRN (Reason: Vertigo) acetaminophen [Tylenol] 325 mg capsule 650 mg PO Q4H PRN (Reason: fever or pain) artifi.tears(hypromellose)(PF) 0.3 % drops 2 drp ophthalmic (eye) .Q1HR PRN (Reason: dry eye(s)) guaifenesin 400 mg tablet 400 mg PO Q6H PRN (Reason: cough) potassium chloride 10 mEq capsule, extended release 20 meq PO BID Biofreeze (menthol) 4 % gel 1 applic topical DAILY PRN (Reason: pain) calcium carbonate [Sriram-Gest Antacid] 200 mg calcium (500 mg) tablet,chewable 200 mg PO DAILY cyanocobalamin (vitamin B-12) 1,000 mcg tablet 1,000 mcg PO DAILY divalproex 250 mg tablet extended release 24 hr 250 mg PO QAM Qty: 30 4RF divalproex 500 mg tablet extended release 24 hr 500 mg PO QHS Qty: 30 4RF levetiracetam [Keppra] 500 mg tablet 500 mg PO BID Qty: 60 4RF allopurinol 300 MG tablet 300 mg PO DAILY albuterol sulfate 1 PUFF inhaler 1 - 2 puff inhalation Q6H PRN PRN (Reason: Sob &/Or Wheezing) lorazepam 1 mg tablet 1 mg PO QHS Rx Instructions: 1mg at night and 2mg in the morning famotidine 20 mg tablet 20 mg PO BID calcium carbonate-vitamin D3 600 mg-10 mcg (400 unit) tablet 1 tab PO BID lisinopril 20 mg tablet 20 mg PO DAILY magnesium oxide 400 mg (241.3 mg magnesium) tablet 400 mg PO DAILY lidocaine 5 % adhesive patch,medicated 1 patch topical DAILY metoprolol tartrate 25 mg tablet 25 mg PO BID desvenlafaxine succinate 50 mg tablet extended release 24 hr 50 mg PO DAILY primidone 50 mg tablet 200 mg PO BID ondansetron 4 mg tablet,disintegrating 4 mg PO Q6H PRN (Reason: nausea and vomiting) Qty: 20 0RF amlodipine 5 mg tablet 5 mg PO DAILY Primary Care Provider: Sree Jamison Referrals: Sree Jamison MD [Primary Care Provider] - As Needed Activity Restrictions/Additional Instructions: Plenty of fluids, fruits, vegetables and fiber to relieve the constipation. Magnesium citrate for the constipation. We also sent a liter of GoLytely to be used for the constipation. One 8 ounce glass every hour until she has a large bowel movement. Follow-up with your doctor as needed. Print Language: [place] Disposition Disposition: Home, Self Care
[2024-11-06] MEDS: Ondansetron 4 MG/2 ML Vial IV (12:32)
[2024-11-06] MEDS: Morphine 4 MG/ML Syringe IV (12:32)
[2024-11-06 12:47] LABS: Absolute Lymphocyte Count 1.21 X10^3/uL (0.83-4.51); Absolute Neutrophil Count 7.3 X10^3/uL (2.0-7.7); Basophil# 0.03 X10^3/uL; Basophil% 0.3 % (0-1); Eosinophil# 0.05 X10^3/uL; Eosinophils% 0.5 % (0-5); Hematocrit 37.5 % (37-47); Hemoglobin 12.8 g/dL (12.0-15.0); Lymphocyte # 1.21 X10^3/ul (0.83-4.51); Mean Corp Hgb Conc 34.1 g/dL (32-36); Mean Corpuscular Hgb 30.3 pg (27.0-32.0); Mean Corpuscular Volume 88.9 fL (81-99); Mean Platelet Vol. 10.7 fl (6.2-12.0); Monocyte# 0.68 X10^3/uL; Monocyte% 7.3 % (0-10); NRBC Flagged by Analyzer 0 % (0-5); Neutrophil # 7.25 X10^3/uL (2.7-7.7); Neutrophil % 78.3 % (47-70); Platelet Count 111 K/mm3 (150-450); RBC Distribution Width CV 12.1 % (11.6-14.6); RBC Distribution Width SD 38.5 fl (35.1-43.9); Red Blood Count 4.22 M/mm3 (4.2-5.4); White Blood Count 9.3 K/mm3 (4.4-11.0)
--- NOTE | 2024-11-06 13:00 | CT_ITS ---
STUDY: CT ABDOMEN AND PELVIS WITH CONTRAST REASON FOR EXAM: Female, 49 years old. Lower abd pain RADIATION DOSAGE (If Supplied By Facility): CTDIvol = ( 19.41 ) mGy, DLP = ( 1195.22 ) mGycm TECHNIQUE: Transaxial images were obtained from the dome of the diaphragm to the symphysis pubis without oral contrast. IV 100mL Isovue-300 was administered. Sagittal and coronal images were reconstructed. Individualized dose optimization techniques were used for this CT. COMPARISON: Comparison is made with prior study dated September 26, 2024. FINDINGS: Stable increased interstitial markings at the lung bases suggestive scarring. Stable 7 mm noncalcified nodule in the anterior lateral aspect of the right lower lobe as seen on axial image #1. The visualized portions of the heart are within normal limits. There is decreased attenuation of the liver consistent with steatosis. 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 Normal gallbladder and extrahepatic biliary system. Normal spleen. Normal pancreas. Normal bilateral adrenal glands. Normal right kidney. Normal left kidney. Metallic artifacts are seen at the gastroesophageal junction in comparison with prior hiatal hernia repair. Normal small intestine. Large amount of fecal material is seen in the rectosigmoid colon. There are surgical clips in the region of the appendix consistent with a prior appendectomy. Normal abdominal aorta. Normal inferior vena cava. Normal retroperitoneum. Distended urinary bladder. Normal abdominal wall. Normal osseous structures. CT/Abdomen/Pelvis W IV Cont ONLY IMPRESSION: Stable scarring at the lung bases. Fatty infiltration of the liver. Prior hiatal hernia repair. Electronically Signed: Son Hernandez MD at 13:36 EST ,
[2024-11-06 13:06] LABS: Internal QC Validated? YES +Cl - CLEAR BKGD; Pregnancy, Serum, hCG Quali. NEGATIVE Negative
[2024-11-06 13:35] LABS: ALB/GLOB Ratio 0.9 RATIO (0.9-2.4); AST(SGOT) 27 U/L (15-37); Alanine Aminotransfer ALT/SGPT 28 U/L (13-56); Albumin, Serum 3.1 g/dL (3.2-5.0); Alkaline Phosphatase 128 U/L (45-117); Anion Gap 6 (5-15); BUN 26 mg/dL (7-18); BUN/Creat Ratio 21.1 RATIO (10-20); Calcium,Total 8.7 mg/dL (8.5-10.1); Chloride 102 mmol/L (98-107); Creatinine, Serum 1.23 mg/dL (0.55-1.02); EST Glomerular Filtration Rate 49 mL/min (>60); Est Glom Filt Rate - Afr Amer 59 mL/min (>60); Estimated Creatinine Clearance 51.06 ml/min; Globulin 3.6 g/dL (2.2-4.2); Glucose 100 mg/dL (74-106); Lipase 85 U/L (13-75); Potassium 4.6 mmol/L (3.5-5.1); Protein, Total 6.7 g/dL (6.4-8.2); Sodium Level 130 mmol/L (136-145)
[2024-11-06 13:37] LABS: Mucous, Urine 0 SEEN /hpf (<or=2+); Red Blood Cells-Urine 0 SEEN /hpf (0-5)
[2024-11-06 13:38] VITALS: PULSE 87; RESP 19; O2SAT 100
[2024-11-06 13:46] LABS: Color, Urine Yellow (Yellow); Glucose, Dipstick Normal (Normal); Ketone-Dipstick Negative (Negative); Leukocyte Esterase-Dipstick 500 /ul (Negative); Nitrite-Dipstick Negative (Negative); Occult Blood-Urine 10 /ul (Negative); Protein-Dipstick 30 mg/dl (Negative); Urine Bilirubin Dipstick Negative (Negative); Urine Clarity Cloudy (Clear); Urine Urobilinogen Normal (Normal)
[2024-11-06 14:12] LABS: Bacteria 1+ /hpf (None Seen); Squamous Epithelial Cells - UA 5-10 SEEN /hpf (5-10); White Blood Cells 5-10 SEEN /hpf (0-5)
[2024-11-06] MEDS: Electrolyte Solution/Peg's 4000 ML 1000 ML PO (15:09)
== END 2024-11-06 15:35 | disposition home or self-care (01) ==
PROVIDERS: Emergency Provider Emergency Medicine; PCP Family Medicine; Visit Provider Emergency Medicine
DX: R10.9 Unspecified abdominal pain (principal); I50.22 Chronic systolic (congestive) heart failure; E78.00 Pure hypercholesterolemia, unspecified; K59.00 Constipation, unspecified; Z87.891 Personal history of nicotine dependence; N18.9 Chronic kidney disease, unspecified; Z90.49 Acquired absence of other specified parts of digestive tract; K21.9 Gastro-esophageal reflux disease without esophagitis; Z79.899 Other long term (current) drug therapy; E66.9 Obesity, unspecified; R11.0 Nausea
CPT/HCPCS: 51701; 74177; 80053; 81001; 83690; 84703; 85025; 96374; 96375; 99285; P9612; Q9967; A4216; J2405

== ENCOUNTER 2024-11-07 05:18 | Emergency (ER) | payer MEDICAID, SELFPAY ==
[2024-11-07 05:22] VITALS: BP 156/96; PULSE 97; RESP 18; TEMP 36.9; O2SAT 95; BMI 37.3
--- NOTE | 2024-11-07 05:32 | EDS_ITS ---
HPI History of Present Illness Chief Complaint: Abd Pain Informant: patient and EMS Narrative Narrative: 49-year-old female residing at [facility] states she has been having diffuse periumbilical abdominal pain and constipation since yesterday. She was seen here for it. She was prescribed GoLytely but although she states she drank it, snf states that she refused to drink it. She apparently was calling 911 repeatedly from the snf, nursing there reports that they were trying to keep her from doing this but she continued to do it anyway, they told her she did not need to go back to the ER since she was just here, but she was adamant so EMS is transported her back. Nursing from the snf stated that they called the physician Dr. Jamison who also stated that she did not need to go she just needed to drink the GoLytely that she was refusing to drink. She denies any nausea or vomiting. She denies any problems urinating. She denies any chest pain or shortness of breath. [facility] Medical History (Updated 11/07/24 @ 06:[address] Ian Starr MD) Borderline personality disorder Long-term use of high-risk medication Systolic heart failure Major depressive disorder Tremor History of SD (myocardial infarction) History of TIA (transient ischemic attack) MELQUIADES (obstructive sleep apnea) Separation of muscle (nontraumatic), unspecified site Nonrheumatic mitral (valve) prolapse Hypercholesteremia Fatty liver Edema Diaphragmatic hernia Hirsutism Fracture of nasal bone Insomnia History of UTI Obesity Psoriasis GERD (gastroesophageal reflux disease) CKD (chronic kidney disease) Epileptic seizure, generalized Hypokalemia Hypothyroidism [place] Home Medications ?Medication ?Instructions ?Recorded ?Last Taken ?Type albuterol sulfate 90 mcg/actuation 1 - 2 puff inhalation Q6H PRN PRN 03/05/20 Unknown History aerosol inhaler Sob &/Or Wheezing allopurinol 300 mg tablet 300 mg PO DAILY 03/05/20 Unknown History acetaminophen 325 mg capsule 650 mg PO Q4H PRN fever or pain 06/05/21 Unknown History (Tylenol) artifi.tears(hypromellose)(PF) 0.3 2 drp ophthalmic (eye) .Q1HR PRN 06/05/21 Unknown History % eye drops dry eye(s) atorvastatin 20 mg tablet 20 mg PO QHS 06/05/21 Unknown History buspirone 10 mg tablet 10 mg PO TID 06/05/21 Unknown History levothyroxine 25 mcg capsule 25 mcg PO DAILY 06/05/21 Unknown History loratadine 10 mg capsule 10 mg PO QHS 06/05/21 Unknown History meclizine 25 mg tablet 25 mg PO Q8H PRN Vertigo 06/05/21 Unknown History melatonin 5 mg capsule 10 mg PO QHS PRN insomnia 06/05/21 Unknown History potassium chloride 10 mEq 20 meq PO BID 08/26/21 Unknown History capsule,extended release calcium carbonate (Sriram-Gest 200 mg PO DAILY 12/23/21 Unknown History Antacid) cyanocobalamin (vitamin B-12) 1,000 mcg PO DAILY 12/23/21 Unknown History 1,000 mcg tablet guaifenesin 400 mg tablet 400 mg PO Q6H PRN cough 12/23/21 Unknown History menthol 4 % topical gel (Biofreeze 1 applic topical DAILY PRN pain 12/23/21 Unknown History (menthol)) divalproex 250 mg tablet,extended 250 mg PO QAM #30 tabs 08/13/22 Unknown Rx release 24 hr divalproex 500 mg tablet,extended 500 mg PO QHS #30 tabs 08/13/22 Unknown Rx release 24 hr levetiracetam 500 mg tablet 500 mg PO BID #60 tabs 08/13/22 Unknown Rx (Keppra) calcium 600 mg (as 1 tab PO BID 09/26/24 Unknown History carbonate)-vitamin D3 10 mcg (400 unit) tablet desvenlafaxine succinate 50 mg 50 mg PO DAILY 09/26/24 Unknown History tablet,extended release 24 hr famotidine 20 mg tablet 20 mg PO BID 09/26/24 Unknown History lidocaine 5 % topical patch 1 patch topical DAILY 09/26/24 Unknown History lisinopril 20 mg tablet 20 mg PO DAILY 09/26/24 Unknown History magnesium oxide 400 mg (241.3 mg 400 mg PO DAILY 09/26/24 Unknown History magnesium) tablet metoprolol tartrate 25 mg tablet 25 mg PO BID 09/26/24 Unknown History ondansetron 4 mg disintegrating 4 mg PO Q6H PRN nausea and 09/26/24 Unknown Rx tablet vomiting #20 tabs primidone 50 mg tablet 200 mg PO BID 09/26/24 Unknown History lorazepam 1 mg tablet 1 mg PO QHS 10/02/24 Unknown History amlodipine 5 mg tablet 5 mg PO DAILY 11/04/24 Unknown History Allergy/AdvReac Type Severity Reaction Status Date / Time phenytoin Allergy Mild Other Verified 11/07/24 05:21 gabapentin (From Neurontin) Allergy Unknown Unknown Verified 11/07/24 05:21 hydrocodone Allergy Unknown Unknown Verified 11/07/24 05:21 acetaminophen (From Vicodin) Allergy Rash Verified 11/07/24 05:21 erythromycin base Allergy Rash Verified 11/07/24 05:21 (Erythromycin Base) hydrocodone bitartrate (From Allergy Rash Verified 11/07/24 05:21 Vicodin) hydromorphone (From Dilaudid) Allergy Rash Verified 11/07/24 05:21 Penicillins Allergy Rash Verified 11/07/24 05:21 promethazine HCl (From Allergy Vomiting Verified 11/07/24 05:21 Phenergan) tramadol Allergy Rash Verified 11/07/24 05:21 codeine AdvReac Vomiting Verified 11/07/24 05:21 morphine AdvReac Vomiting Verified 11/07/24 05:21 ondansetron HCl (From Zofran) AdvReac Vomiting Verified 11/07/24 05:21 Social History Smoking Status: Former smoker Electronic Cigarette Use: not used second hand exposure: No alcohol intake: never substance use type: does not use ROS ROS ED Constitutional Constitutional ED: Denies chills or fever(s) Eyes Eyes: Denies change in vision or diplopia ENT ENT ED: Denies rhinorrhea or sore throat Cardiovascular Cardiovascular: Denies chest pain or palpitations Respiratory/Chest Respiratory/Chest: Denies cough or dyspnea Gastrointestinal Gastrointestinal: Reports abdominal pain and constipation; Denies diarrhea, nausea or vomiting Genitourinary Genitourinary ED: Denies dysuria or hematuria Musculoskeletal Musculoskeletal: Reports other Details: Right leg pain from closed fibula fracture which is why she is in long-term facility ; Denies back pain or neck pain Integumentary Denies abscess or rash Neurologic Neurologic: Denies headache(s), paresthesias or weakness EXAM Physical Exam Const Vital Signs: 11/07/24 05:22 Temperature 98.4 F Temperature Source Oral Pulse Rate 97 Respiratory Rate 18 Blood Pressure 156/96 H Blood Pressure Mean 116 Pulse Ox 95 Oxygen Delivery Method Room Air Positive well nourished, well developed and obese General Appearance ED: well developed and NAD Nutritional Appearance: obese HEENT Reports moist mucous membranes normocephalic and atraumatic Eyes PERRL and EOMs intact bilaterally Neck full ROM and supple Resp normal respiratory effort and clear to auscultation bilaterally Cardio regular rate, regular rhythm and no murmurs GI non-distended GI Narrative: Mild diffuse tenderness Auscultation: normoactive bowel sounds Palpation: soft Back/Spine no CVA tenderness General Back: other FROM Extremity normal to inspection General Extremety ED: Negative for edema, pulses abnormal or tenderness General Extremity: Negative for edema or pulses abnormal Neuro oriented x3, CN's II-XII intact bilaterally and no sensory deficits noted Sensorium / Orientation: awake and alert Motor Exam: strength 5/5 throughout Psych Attitude: agitated Mood & Affect: anxious Skin no rashes or lesions noted and no wounds MDM MDM MDM Narrative Medical decision making narrative: I reviewed the workup patient had yesterday which was normal including a CT of the abdomen/pelvis. I went back to discuss treatment options with the patient, including disimpaction and/or enema. She states that she is having a bowel movement right now as she is lying in bed in a diaper. I asked her if she wanted to get to a bedside commode or bedpan, she states no she would rather just go. She had a large semiloose bowel movement. She then told staff and I that her pain was a little better but still 10/10. I had nursing give her an IM injection of dicyclomine, and later oral Mylanta advanced and hyoscyamine. Subsequently she had another large bowel movement, and on reevaluation nursing states she is sleeping and comfortable with normal vital signs. Stable for discharge back to snf. As I discussed with her, narcotics not indicated for this pain given that it could worsen the problem. Encouraged her to drink plenty of fluids. History & Record Review Additional record(s) reviewed:: Prior ED visit Discharge Plan Triage Chief Complaint: Abd Pain ED Provider: Ian Starr Dx/Rx/DC Orders Clinical Impression: Abdominal pain, Constipation Instructions: ED Constipation (Adult) Prescriptions: No Action atorvastatin 20 mg tablet 20 mg PO QHS buspirone 10 mg tablet 10 mg PO TID levothyroxine 25 mcg capsule 25 mcg PO DAILY loratadine 10 mg capsule 10 mg PO QHS melatonin 5 mg capsule 10 mg PO QHS PRN (Reason: insomnia) meclizine 25 mg tablet 25 mg PO Q8H PRN (Reason: Vertigo) acetaminophen [Tylenol] 325 mg capsule 650 mg PO Q4H PRN (Reason: fever or pain) artifi.tears(hypromellose)(PF) 0.3 % drops 2 drp ophthalmic (eye) .Q1HR PRN (Reason: dry eye(s)) guaifenesin 400 mg tablet 400 mg PO Q6H PRN (Reason: cough) potassium chloride 10 mEq capsule, extended release 20 meq PO BID Biofreeze (menthol) 4 % gel 1 applic topical DAILY PRN (Reason: pain) calcium carbonate [Sriram-Gest Antacid] 200 mg calcium (500 mg) tablet,chewable 200 mg PO DAILY cyanocobalamin (vitamin B-12) 1,000 mcg tablet 1,000 mcg PO DAILY divalproex 250 mg tablet extended release 24 hr 250 mg PO QAM Qty: 30 4RF divalproex 500 mg tablet extended release 24 hr 500 mg PO QHS Qty: 30 4RF levetiracetam [Keppra] 500 mg tablet 500 mg PO BID Qty: 60 4RF allopurinol 300 MG tablet 300 mg PO DAILY albuterol sulfate 1 PUFF inhaler 1 - 2 puff inhalation Q6H PRN PRN (Reason: Sob &/Or Wheezing) lorazepam 1 mg tablet 1 mg PO QHS Rx Instructions: 1mg at night and 2mg in the morning famotidine 20 mg tablet 20 mg PO BID calcium carbonate-vitamin D3 600 mg-10 mcg (400 unit) tablet 1 tab PO BID lisinopril 20 mg tablet 20 mg PO DAILY magnesium oxide 400 mg (241.3 mg magnesium) tablet 400 mg PO DAILY lidocaine 5 % adhesive patch,medicated 1 patch topical DAILY metoprolol tartrate 25 mg tablet 25 mg PO BID desvenlafaxine succinate 50 mg tablet extended release 24 hr 50 mg PO DAILY primidone 50 mg tablet 200 mg PO BID ondansetron 4 mg tablet,disintegrating 4 mg PO Q6H PRN (Reason: nausea and vomiting) Qty: 20 0RF amlodipine 5 mg tablet 5 mg PO DAILY Primary Care Provider: Sree Jamison Referrals: Sree Jamison MD [Primary Care Provider] - As Needed Activity Restrictions/Additional Instructions: Make sure you are drinking plenty of fluids after you take the GoLytely that was prescribed to you. Print Language: Icelandic Disposition Disposition: Home, Self Care
[2024-11-07] MEDS: Dicyclomine 20 MG/2 ML Vial IM (05:52)
[2024-11-07] MEDS: Hyoscyamine Sulfate 0.125 MG Tablet SL (06:39)
[2024-11-07] MEDS: Mag Hydrox/Al Hydrox/Simeth 30 ML UDC PO (06:39)
--- NOTE | 2024-11-07 06:42 | ED.RN ---
This RN went to medicate the patient after the patient reported 10/10 abdominal pain. Upon entering the room and turning on the lights, the patient was comfortably sleeping in the bed. This RN asked the patient if her pain had subsided and the patient stated the pain was terrible and she was having a light sleep. notified.
[2024-11-07 06:45] VITALS: BP 165/84; PULSE 97; RESP 18; TEMP 36.7; O2SAT 94
--- NOTE | 2024-11-07 06:58 | ED.RN ---
This RN called report to Maddie to inform the nursing staff of her care at [facility] and discharge instructions, along with what time she is expected to return.
[2024-11-07 07:21] VITALS: BP 150/83; PULSE 84; RESP 16; O2SAT 96
== END 2024-11-07 08:38 | disposition home or self-care (01) ==
PROVIDERS: Emergency Provider Emergency Medicine; PCP Family Medicine; Visit Provider Emergency Medicine
DX: R10.33 Periumbilical pain (principal); I50.22 Chronic systolic (congestive) heart failure; N18.9 Chronic kidney disease, unspecified; E78.00 Pure hypercholesterolemia, unspecified; K59.00 Constipation, unspecified; Z87.891 Personal history of nicotine dependence; K21.9 Gastro-esophageal reflux disease without esophagitis; Z79.899 Other long term (current) drug therapy; E66.9 Obesity, unspecified
CPT/HCPCS: 96372; 99285; A4216

== ENCOUNTER 2025-03-21 09:36 | Emergency (ER) | payer MEDICAID, SELFPAY ==
[2025-03-21 09:37] VITALS: BP 171/107; PULSE 102; RESP 16; TEMP 36.9; O2SAT 94; BMI 34.2
--- NOTE | 2025-03-21 10:11 | EX.ED.DYSGE1 ---
HPI History of Present Illness Chief Complaint: Seizure Informant: patient Narrative Narrative: 49-year-old female from a senior care currently has seizure activity this morning. The patient states she thinks it was [place], was told she has a history of that. She had a 3-day epilepsy study that was abnormal, and is on antiepileptics, has had no major changes in her medications recently, she thinks she received her morning medications after she had her seizure this morning. She denies any recent illness but states she vomits off and on and that has been the case yesterday. [facility] Medical History Borderline personality disorder Long-term use of high-risk medication Systolic heart failure Major depressive disorder Tremor History of NV (myocardial infarction) History of TIA (transient ischemic attack) MELQUIADES (obstructive sleep apnea) Separation of muscle (nontraumatic), unspecified site Nonrheumatic mitral (valve) prolapse Hypercholesteremia Fatty liver Edema Diaphragmatic hernia Hirsutism Fracture of nasal bone Insomnia History of UTI Obesity Psoriasis GERD (gastroesophageal reflux disease) CKD (chronic kidney disease) Epileptic seizure, generalized Hypokalemia Hypothyroidism [place] Medications ?Medication ?Instructions ?Recorded ?Last Taken ?Type albuterol sulfate 90 mcg/actuation 1 - 2 puff inhalation Q6H PRN PRN 03/05/20 Unknown History aerosol inhaler Sob &/Or Wheezing acetaminophen 325 mg capsule 650 mg PO Q4H PRN fever or pain 06/05/21 Unknown History (Tylenol) artifi.tears(hypromellose)(PF) 0.3 2 drp ophthalmic (eye) .Q1HR PRN 06/05/21 Unknown History % eye drops dry eye(s) atorvastatin 20 mg tablet 20 mg PO QHS 06/05/21 Unknown History buspirone 10 mg tablet 10 mg PO TID 06/05/21 Unknown History levothyroxine 25 mcg capsule 25 mcg PO DAILY 06/05/21 Unknown History loratadine 10 mg capsule 10 mg PO QHS 06/05/21 Unknown History melatonin 5 mg capsule 10 mg PO QHS PRN insomnia 06/05/21 Unknown History potassium chloride 10 mEq 20 meq PO BID 08/26/21 Unknown History capsule,extended release calcium carbonate (Sriram-Gest 200 mg PO DAILY 12/23/21 Unknown History Antacid) cyanocobalamin (vitamin B-12) 1,000 mcg PO DAILY 12/23/21 Unknown History 1,000 mcg tablet guaifenesin 400 mg tablet 400 mg PO Q6H PRN cough 12/23/21 Unknown History menthol 4 % topical gel (Biofreeze 1 applic topical DAILY PRN pain 12/23/21 Unknown History (menthol)) levetiracetam 500 mg tablet 500 mg PO BID #60 tabs 08/13/22 Unknown Rx (Keppra) calcium 600 mg (as 1 tab PO BID 09/26/24 Unknown History carbonate)-vitamin D3 10 mcg (400 unit) tablet desvenlafaxine succinate 50 mg 100 mg PO DAILY 09/26/24 Unknown History tablet,extended release 24 hr famotidine 20 mg tablet 20 mg PO BID 09/26/24 Unknown History lidocaine 5 % topical patch 1 patch topical DAILY 09/26/24 Unknown History lisinopril 20 mg tablet 20 mg PO DAILY 09/26/24 Unknown History magnesium oxide 400 mg (241.3 mg 400 mg PO DAILY 09/26/24 Unknown History magnesium) tablet metoprolol tartrate 25 mg tablet 25 mg PO BID 09/26/24 Unknown History ondansetron 4 mg disintegrating 4 mg PO Q6H PRN nausea and 09/26/24 Unknown Rx tablet vomiting #20 tabs primidone 50 mg tablet 200 mg PO BID 09/26/24 Unknown History lorazepam 1 mg tablet 2 mg PO Q12H 10/02/24 Unknown History amlodipine 5 mg tablet 5 mg PO BID 11/04/24 Unknown History allopurinol 100 mg tablet 100 mg PO DAILY 03/21/25 Unknown History bisacodyl 10 mg rectal suppository 10 mg PA DAILY PRN constipation 03/21/25 Unknown History cholecalciferol (vitamin D3) 50 2,000 unit PO DAILY 03/21/25 Unknown History mcg (2,000 unit) capsule clonidine HCl 0.1 mg tablet 0.1 mg PO TID 03/21/25 Unknown History divalproex 250 mg tablet,extended 250 mg PO BID 03/21/25 Unknown History release 24 hr magnesium hydroxide 400 mg/5 mL 30 ml PO DAILY PRN constipation 03/21/25 Unknown History oral suspension sennosides 8.6 mg tablet (senna) 8.6 mg PO DAILY 03/21/25 Unknown History Allergy/AdvReac Type Severity Reaction Status Date / Time phenytoin Allergy Mild Other Verified 11/07/24 05:21 gabapentin (From Neurontin) Allergy Unknown Unknown Verified 11/07/24 05:21 hydrocodone Allergy Unknown Unknown Verified 11/07/24 05:21 acetaminophen (From Vicodin) Allergy Rash Verified 11/07/24 05:21 erythromycin base Allergy Rash Verified 11/07/24 05:21 (Erythromycin Base) hydrocodone bitartrate (From Allergy Rash Verified 11/07/24 05:21 Vicodin) hydromorphone (From Dilaudid) Allergy Rash Verified 11/07/24 05:21 Penicillins Allergy Rash Verified 11/07/24 05:21 promethazine HCl (From Allergy Vomiting Verified 11/07/24 05:21 Phenergan) tramadol Allergy Rash Verified 11/07/24 05:21 codeine AdvReac Vomiting Verified 11/07/24 05:21 morphine AdvReac Vomiting Verified 11/07/24 05:21 ondansetron HCl (From Zofran) AdvReac Vomiting Verified 11/07/24 05:21 Social History Smoking Status: Never smoker Electronic Cigarette Use: not used second hand exposure: No alcohol intake: never substance use type: does not use ROS ROS ED Review of Systems ROS Unobtainable: other Details: Limited due to memory and tremulousness Constitutional Constitutional ED: Denies chills or fever(s) Cardiovascular Cardiovascular: Denies chest pain Respiratory/Chest Respiratory/Chest: Denies cough or dyspnea Gastrointestinal Gastrointestinal: Reports vomiting and other Details: No nausea right now ; Denies abdominal pain or diarrhea Musculoskeletal Musculoskeletal: Denies back pain or neck pain Integumentary Denies rash Neurologic Neurologic: Denies headache(s), paresthesias or weakness Psychiatric Psychiatric: Reports anxiety EXAM Physical Exam Const Vital Signs: 03/21/25 09:37 03/21/25 12:11 03/21/25 14:06 Temperature 98.5 F Temperature Source Oral Pulse Rate 102 H 84 83 Respiratory Rate 16 16 11 L Blood Pressure 171/107 H 161/103 H 148/112 H Blood Pressure Mean 128 122 124 Pulse Ox 94 95 100 Oxygen Delivery Method Room Air Room Air Room Air Positive well nourished, well developed and obese General Appearance ED: well developed and NAD Nutritional Appearance: obese HEENT Reports moist mucous membranes normocephalic and atraumatic Eyes PERRL and EOMs intact bilaterally Neck full ROM and supple Resp normal respiratory effort and clear to auscultation bilaterally Cardio regular rate, regular rhythm and no murmurs GI non-tender and non-distended Auscultation: normoactive bowel sounds Palpation: soft Back/Spine no CVA tenderness General Back: other FROM Extremity normal to inspection General Extremety ED: Negative for edema, pulses abnormal or tenderness General Extremity: Negative for edema or pulses abnormal Neuro oriented x3, CN's II-XII intact bilaterally and no sensory deficits noted Neuro Narrative: Patient is moving all 4 extremities. She is very tremulous. She is having fine muscle spasms frequently, in the face, sometimes the arms and legs, but no convulsions/seizure activity. Sensorium / Orientation: awake and alert Skin no rashes or lesions noted and no wounds MDM MDM MDM Narrative Medical decision making narrative: Patient is very twitchy and tremulous, gave her some Ativan and Cogentin given her medication list while we obtained basic labs, urinalysis which is negative for infection, and a valproic acid level. It is low at 24. Therefore gave her a bolus of around half of a 17 mg/kg bolus, the rest of the labs are normal there is no leftward shift, the patient had no seizure activity while here in the ER but remained a little twitchy and tremulous. I had nurses call and determine her neurologic baseline with staff at the senior care. She does have baseline tremors, although they may be a little worse lately. She has significant behavioral issues according to the staff there. They states she did a 3 night sleep study and did not have any seizure activity. It is undetermined if she had true seizure activity today or not. My plan was to increase her valproic acid dosing since I do not see an obvious reason for her breakthrough seizure such as an infection, but her list shows that she is on the extended release caplets twice daily, I am afraid it may be inaccurate so I do not want to increase this and cause harm. Therefore I recommend that she touch base with her neurology office for further instructions. Of note the patient asked me for pain medication for her foot and leg, which is normal-appearing and without bony tenderness or signs of compartment syndrome, she states it has been hurting her for months, and she has been given Tylenol at home the senior care for it. I give her an IV dose of Toradol. Lab Data Attestation: I reviewed the patient's lab results. Labs: Laboratory Results - last 24 hr 03/21/25 03/21/25 10:35 10:57 WBC 4.7 RBC 4.72 Hgb 14.2 Hct 40.8 MCV 86.4 MCH 30.1 MCHC 34.8 RDW Std Deviation 38.5 RDW Coeff of Jeremiah 12.2 Plt Count 109 L MPV 10.0 Immature Gran % (Auto) 0.600 Neut % (Auto) 66.0 Lymph % (Auto) 23.2 [place] % (Auto) 9.0 Eos % (Auto) 0.6 Baso % (Auto) 0.6 Absolute Neuts (auto) 3.1 Absolute Lymphs (auto) 1.08 Nucleated RBC % 0 Sodium 138 Potassium 4.5 Chloride 102 Carbon Dioxide 23.8 Anion Gap 12 BUN 33 H Creatinine 1.39 H Estim Creat Clear Calc 43.92 L Est GFR (MDRD) Non-Af 46 L BUN/Creatinine Ratio 23.5 H Glucose 93 Lactic Acid < 1.0 Calcium 9.2 Magnesium 2.0 Urine Color Yellow Urine Clarity Clear Urine pH 6.0 Ur Specific [place] 1.015 Urine Protein 30 H Urine Glucose (UA) Normal Urine Ketones Negative Urine Occult Blood Negative Urine Nitrite Negative Urine Bilirubin Negative Urine Urobilinogen Normal Ur Leukocyte Esterase Negative Urine RBC 0 SEEN Urine WBC 0-5 SEEN Ur Squamous Epith Cells 0-5 SEEN Urine Bacteria 0 SEEN Hyaline Casts 0-5 SEEN Urine Mucus 0 SEEN Valproic Acid 24 L Rhythm Strip Rhythm Strip: Sinus Rhythm Rate: 100 Ectopy: None Discharge Plan Triage Chief Complaint: Seizure ED Provider: Ian Starr Dx/Rx/DC Orders Clinical Impression: Seizure-like activity, Epilepsy, Chronic tremor Instructions: ED Seizure, Recurrent (Adult) Prescriptions: Continued atorvastatin 20 mg tablet 20 mg PO QHS buspirone 10 mg tablet 10 mg PO TID levothyroxine 25 mcg capsule 25 mcg PO DAILY loratadine 10 mg capsule 10 mg PO QHS melatonin 5 mg capsule 10 mg PO QHS PRN (Reason: insomnia) acetaminophen [Tylenol] 325 mg capsule 650 mg PO Q4H PRN (Reason: fever or pain) artifi.tears(hypromellose)(PF) 0.3 % drops 2 drp ophthalmic (eye) .Q1HR PRN (Reason: dry eye(s)) guaifenesin 400 mg tablet 400 mg PO Q6H PRN (Reason: cough) potassium chloride 10 mEq capsule, extended release 20 meq PO BID Biofreeze (menthol) 4 % gel 1 applic topical DAILY PRN (Reason: pain) calcium carbonate [Sriram-Gest Antacid] 200 mg calcium (500 mg) tablet,chewable 200 mg PO DAILY cyanocobalamin (vitamin B-12) 1,000 mcg tablet 1,000 mcg PO DAILY levetiracetam [Keppra] 500 mg tablet 500 mg PO BID Qty: 60 4RF albuterol sulfate 1 PUFF inhaler 1 - 2 puff inhalation Q6H PRN PRN (Reason: Sob &/Or Wheezing) lorazepam 1 mg tablet 2 mg PO Q12H Rx Instructions: 1mg at night and 2mg in the morning allopurinol 100 mg tablet 100 mg PO DAILY bisacodyl 10 mg suppository 10 mg PA DAILY PRN (Reason: constipation) clonidine HCl 0.1 mg tablet 0.1 mg PO TID magnesium hydroxide 400 mg/5 mL suspension 30 ml PO DAILY PRN (Reason: constipation) sennosides [senna] 8.6 mg tablet 8.6 mg PO DAILY cholecalciferol (vitamin D3) 50 mcg (2,000 unit) capsule 2,000 unit PO DAILY divalproex 250 mg tablet extended release 24 hr 250 mg PO BID famotidine 20 mg tablet 20 mg PO BID calcium carbonate-vitamin D3 600 mg-10 mcg (400 unit) tablet 1 tab PO BID lisinopril 20 mg tablet 20 mg PO DAILY magnesium oxide 400 mg (241.3 mg magnesium) tablet 400 mg PO DAILY lidocaine 5 % adhesive patch,medicated 1 patch topical DAILY metoprolol tartrate 25 mg tablet 25 mg PO BID desvenlafaxine succinate 50 mg tablet extended release 24 hr 100 mg PO DAILY primidone 50 mg tablet 200 mg PO BID ondansetron 4 mg tablet,disintegrating 4 mg PO Q6H PRN (Reason: nausea and vomiting) Qty: 20 0RF amlodipine 5 mg tablet 5 mg PO BID Primary Care Provider: Sree Jamison Referrals: Antonio Rodrigez MD [Non-Staff] - As soon as possible Sree Jamison MD [Primary Care Provider] - Activity Restrictions/Additional Instructions: Depakote level after taking medication today was 24, about half of the lower limit of what it should be. Please call and discussed with Dr. Rodrigez's office for recommended dosage increase. Print Language: Romansh Disposition Disposition: Home, Self Care
[2025-03-21] MEDS: 0.9% Normal Saline (500mL Bag) 500 ML 999 ML IV (10:37)
[2025-03-21] MEDS: Lorazepam 2 MG/ML WCH Syringe 0.5 MG IV (10:37)
[2025-03-21 10:45] LABS: Absolute Lymphocyte Count 1.08 X10^3/uL (0.83-4.51); Absolute Neutrophil Count 3.1 X10^3/uL (2.0-7.7); Basophil# 0.03 X10^3/uL; Basophil% 0.6 % (0-1); Eosinophil# 0.03 X10^3/uL; Eosinophils% 0.6 % (0-5); Hematocrit 40.8 % (37-47); Hemoglobin 14.2 g/dL (12.0-15.0); Lymphocyte # 1.08 X10^3/ul (0.83-4.51); Lymphocyte % 23.2 % (19-41); Mean Corp Hgb Conc 34.8 g/dL (32-36); Mean Corpuscular Hgb 30.1 pg (27.0-32.0); Mean Corpuscular Volume 86.4 fL (81-99); Monocyte# 0.42 X10^3/uL; NRBC Flagged by Analyzer 0 % (0-5); Neutrophil # 3.07 X10^3/uL (2.7-7.7); Platelet Count 109 K/mm3 (150-450); RBC Distribution Width CV 12.2 % (11.6-14.6); RBC Distribution Width SD 38.5 fl (35.1-43.9); Red Blood Count 4.72 M/mm3 (4.2-5.4); White Blood Count 4.7 K/mm3 (4.4-11.0)
[2025-03-21 11:03] LABS: Bacteria 0 SEEN /hpf (None Seen); Mucous, Urine 0 SEEN /hpf (<or=2+); Red Blood Cells-Urine 0 SEEN /hpf (0-5)
[2025-03-21 11:07] LABS: Color, Urine Yellow (Yellow); Glucose, Dipstick Normal (Normal); Ketone-Dipstick Negative (Negative); Leukocyte Esterase-Dipstick Negative /ul (Negative); Nitrite-Dipstick Negative (Negative); Occult Blood-Urine Negative /ul (Negative); Protein-Dipstick 30 mg/dl (Negative); Specific Gravity, Urine 1.015 (1.002-1.030); Urine Bilirubin Dipstick Negative (Negative); Urine Clarity Clear (Clear); Urine Urobilinogen Normal (Normal)
[2025-03-21 11:15] LABS: Anion Gap 12 (5-15); BUN 33 mg/dL (4-19); BUN/Creat Ratio 23.5 RATIO (10-20); Calcium,Total 9.2 mg/dL (7.6-11.0); Carbon Dioxide 23.8 mmol/L (21.0-32.0); Chloride 102 mmol/L (98-108); Creatinine, Serum 1.39 mg/dL (0.70-1.20); EST Glomerular Filtration Rate 46 (>60); Estimated Creatinine Clearance 43.92 ml/min (50-250); Glucose 93 mg/dL (70-99); Lactic Acid < 1.0 mmol/L (0.0-2.0); Potassium 4.5 mmol/L (3.3-5.1); Sodium Level 138 mmol/L (133-145); Valproic Acid (Depakene) Level 24 ug/mL (50-100)
[2025-03-21 11:19] LABS: Squamous Epithelial Cells - UA 0-5 SEEN /hpf (5-10); White Blood Cells 0-5 SEEN /hpf (0-5)
[2025-03-21 11:20] LABS: Hyaline Cast 0-5 SEEN /lpf (0-5)
[2025-03-21] MEDS: DEXTROSE 5% IV (12:10)
[2025-03-21] MEDS: VALPROATE SODIUM IV (12:10)
[2025-03-21] MEDS: WATER IV (12:10)
[2025-03-21 12:11] VITALS: BP 161/103; PULSE 84; RESP 16; O2SAT 95
[2025-03-21 14:06] VITALS: BP 148/112; PULSE 83; RESP 11; O2SAT 100
[2025-03-21] MEDS: Ketorolac 15 MG/ML Vial IV (14:49)
[2025-03-21 16:00] VITALS: BP 194/106; PULSE 90; RESP 18; O2SAT 99
[2025-03-21 16:27] VITALS: BP 194/106; PULSE 90; RESP 18; TEMP 37; O2SAT 99
[2025-03-21 18:00] VITALS: BP 180/70; PULSE 90; RESP 12; O2SAT 99
== END 2025-03-21 20:25 | disposition home or self-care (01) ==
PROVIDERS: Emergency Provider Emergency Medicine; PCP Family Medicine; Visit Provider Emergency Medicine
DX: G40.909 Epilepsy, unspecified, not intractable, without status epilepticus (principal); I50.22 Chronic systolic (congestive) heart failure; R25.1 Tremor, unspecified; R11.10 Vomiting, unspecified; N18.9 Chronic kidney disease, unspecified; E78.00 Pure hypercholesterolemia, unspecified; E03.9 Hypothyroidism, unspecified; G47.33 Obstructive sleep apnea (adult) (pediatric); Z79.899 Other long term (current) drug therapy; I25.2 Old myocardial infarction; Z86.73 Personal history of transient ischemic attack (TIA), and cerebral infarction without residual deficits
CPT/HCPCS: 51701; 80048; 80164; 81001; 83605; 83735; 85025; 96361; 96365; 96366; 96375; 99285; P9612; A4216

== ENCOUNTER 2025-04-04 15:39 | Emergency (ER) | payer MEDICAID, SELFPAY ==
[2025-04-04 15:40] VITALS: BP 191/105; PULSE 80; RESP 16; TEMP 36.8; O2SAT 98
[2025-04-04 15:43] VITALS: BMI 33.1
[2025-04-04 17:40] VITALS: BP 191/99; PULSE 83; O2SAT 98
[2025-04-04 19:00] VITALS: BP 196/120; PULSE 97; RESP 16; TEMP 36.6; O2SAT 99
--- NOTE | 2025-04-04 19:26 | RAD_ITS ---
PROCEDURE: FOOT MIN 3 VIEWS 04/04/2025 REASON FOR EXAM: INJURY/PAIN TECHNIQUE: FOOT MIN 3 VIEWS COMPARISON: 11/04/2024. FINDINGS: No evidence acute fracture or dislocation. Mild degenerative changes of the foot. The soft tissues are unremarkable. RAD/Foot min 3 Views IMPRESSION: NO ACUTE FRACTURE OR DISLOCATION. Reading Location: [place] [id number]
--- NOTE | 2025-04-04 19:30 | ED.RN ---
when questioned about thoughts of harming or killing someone, pt expressed that she frequently has persistent thoughts of wanting to harm the aids who have been caring for her. When asked about suicidal ideation she expressed that she would like to be with her mother who has passed. She also expressed that she is not able to harm herself, though in the past she has accidentally taken too many pills.
[2025-04-04 19:55] LABS: Absolute Lymphocyte Count 2.18 X10^3/uL (0.83-4.51); Absolute Neutrophil Count 6.3 X10^3/uL (2.0-7.7); Basophil# 0.03 X10^3/uL; Basophil% 0.3 % (0-1); Eosinophil# 0.04 X10^3/uL; Eosinophils% 0.4 % (0-5); Hematocrit 46.2 % (37-47); Lymphocyte # 2.18 X10^3/ul (0.83-4.51); Lymphocyte % 22.8 % (19-41); Mean Corp Hgb Conc 34.6 g/dL (32-36); Mean Corpuscular Hgb 29.9 pg (27.0-32.0); Mean Corpuscular Volume 86.4 fL (81-99); Mean Platelet Vol. 10.7 fl (6.2-12.0); Monocyte# 0.98 X10^3/uL; Monocyte% 10.3 % (0-10); NRBC Flagged by Analyzer 0 % (0-5); Neutrophil # 6.28 X10^3/uL (2.7-7.7); Neutrophil % 65.7 % (47-70); Platelet Count 159 K/mm3 (150-450); RBC Distribution Width CV 12.8 % (11.6-14.6); RBC Distribution Width SD 39.6 fl (35.1-43.9); Red Blood Count 5.35 M/mm3 (4.2-5.4); White Blood Count 9.6 K/mm3 (4.4-11.0)
--- NOTE | 2025-04-04 20:03 | EX.ED.DYSGE1 ---
HPI History of Present Illness Chief Complaint: Mental Health Detail of Chief Complaint: Behavioral issue versus psychiatric disorder Informant: patient, EMS and SNF Onset/Context/Timing Onset: Today (Patient states they have not paid attention to her after she vomited on herself.) Context: - (HPI narrative) Timing: Intermittent and Waxes and wanes Quality: Patient does not wish to return to nursing facility Location: [place] Current Severity: Mild Maximum Severity: Moderate Worsened by: Unknown Relieved by: Nothing Associated Symptoms Associated Symptoms: Patient with little eye contact. And has tremor. She states that she does Narrative Narrative: patient is a 49-year-old woman. [facility] for psychiatric eval. Reportedly patient vomit on herself to get attention per nursing staff at facility. Patient states nursing staff did not pay attention to her after she had vomited on herself. Patient states she does not want to go back. Patient states she is upset and angry. Patient has history of hyperlipidemia, hypertension, gait abnormality, epilepsy, monoclonas jerks and long-term use of high-risk medication. Patient's history is very confusing. Nursing staff is uncertain why she is here. Charge nurse contacted and apparently she demanded to be evaluated and he suggested that she have a psychiatric eval. Prior similar symptoms: Yes (Per the [facility] social work Lori who was asked to see her to help determi) Recent Illness/Hospitalization: No PFSH PFSH Medical History Borderline personality disorder Long-term use of high-risk medication Systolic heart failure Major depressive disorder Tremor History of [place] (myocardial infarction) History of TIA (transient ischemic attack) MELQUIADES (obstructive sleep apnea) Separation of muscle (nontraumatic), unspecified site Nonrheumatic mitral (valve) prolapse Hypercholesteremia Fatty liver Edema Diaphragmatic hernia Hirsutism Fracture of nasal bone Insomnia History of UTI Obesity Psoriasis GERD (gastroesophageal reflux disease) CKD (chronic kidney disease) Epileptic seizure, generalized Hypokalemia Hypothyroidism [place] Medications ?Medication ?Instructions ?Recorded ?Last Taken ?Type albuterol sulfate 90 mcg/actuation 1 - 2 puff inhalation Q6H PRN PRN 03/05/20 Unknown History aerosol inhaler Sob &/Or Wheezing acetaminophen 325 mg capsule 650 mg PO Q4H PRN fever or pain 06/05/21 Unknown History (Tylenol) artifi.tears(hypromellose)(PF) 0.3 2 drp ophthalmic (eye) .Q1HR PRN 06/05/21 Unknown History % eye drops dry eye(s) atorvastatin 20 mg tablet 20 mg PO QHS 06/05/21 Unknown History buspirone 10 mg tablet 10 mg PO TID 06/05/21 Unknown History levothyroxine 25 mcg capsule 25 mcg PO DAILY 06/05/21 Unknown History loratadine 10 mg capsule 10 mg PO QHS 06/05/21 Unknown History melatonin 5 mg capsule 10 mg PO QHS PRN insomnia 06/05/21 Unknown History potassium chloride 10 mEq 20 meq PO BID 08/26/21 Unknown History capsule,extended release calcium carbonate (Sriram-Gest 200 mg PO DAILY 12/23/21 Unknown History Antacid) cyanocobalamin (vitamin B-12) 1,000 mcg PO DAILY 12/23/21 Unknown History 1,000 mcg tablet guaifenesin 400 mg tablet 400 mg PO Q6H PRN cough 12/23/21 Unknown History menthol 4 % topical gel (Biofreeze 1 applic topical DAILY PRN pain 12/23/21 Unknown History (menthol)) levetiracetam 500 mg tablet 500 mg PO BID #60 tabs 08/13/22 Unknown Rx (Keppra) calcium 600 mg (as 1 tab PO BID 09/26/24 Unknown History carbonate)-vitamin D3 10 mcg (400 unit) tablet desvenlafaxine succinate 50 mg 100 mg PO DAILY 09/26/24 Unknown History tablet,extended release 24 hr famotidine 20 mg tablet 20 mg PO BID 09/26/24 Unknown History lidocaine 5 % topical patch 1 patch topical DAILY 09/26/24 Unknown History lisinopril 20 mg tablet 20 mg PO DAILY 09/26/24 Unknown History magnesium oxide 400 mg (241.3 mg 400 mg PO DAILY 09/26/24 Unknown History magnesium) tablet metoprolol tartrate 25 mg tablet 25 mg PO BID 09/26/24 Unknown History ondansetron 4 mg disintegrating 4 mg PO Q6H PRN nausea and 09/26/24 Unknown Rx tablet vomiting #20 tabs primidone 50 mg tablet 200 mg PO BID 09/26/24 Unknown History lorazepam 1 mg tablet 2 mg PO Q12H 12/16/24 Unknown History amlodipine 5 mg tablet 5 mg PO BID 11/04/24 Unknown History allopurinol 100 mg tablet 100 mg PO DAILY 03/21/25 Unknown History bisacodyl 10 mg rectal suppository 10 mg CA DAILY PRN constipation 03/21/25 Unknown History cholecalciferol (vitamin D3) 50 2,000 unit PO DAILY 03/21/25 Unknown History mcg (2,000 unit) capsule clonidine HCl 0.1 mg tablet 0.1 mg PO TID 03/21/25 Unknown History divalproex 250 mg tablet,extended 250 mg PO BID 03/21/25 Unknown History release 24 hr magnesium hydroxide 400 mg/5 mL 30 ml PO DAILY PRN constipation 03/21/25 Unknown History oral suspension sennosides 8.6 mg tablet (senna) 8.6 mg PO DAILY 03/21/25 Unknown History Allergy/AdvReac Type Severity Reaction Status Date / Time phenytoin Allergy Mild Other Verified 04/04/25 15:44 gabapentin (From Neurontin) Allergy Unknown Unknown Verified 04/04/25 15:44 hydrocodone Allergy Unknown Unknown Verified 04/04/25 15:44 acetaminophen (From Vicodin) Allergy Rash Verified 04/04/25 15:44 erythromycin base Allergy Rash Verified 04/04/25 15:44 (Erythromycin Base) hydrocodone bitartrate (From Allergy Rash Verified 04/04/25 15:44 Vicodin) hydromorphone (From Dilaudid) Allergy Rash Verified 04/04/25 15:44 Penicillins Allergy Rash Verified 04/04/25 15:44 promethazine HCl (From Allergy Vomiting Verified 04/04/25 15:44 Phenergan) tramadol Allergy Rash Verified 04/04/25 15:44 codeine AdvReac Vomiting Verified 04/04/25 15:44 morphine AdvReac Vomiting Verified 04/04/25 15:44 ondansetron HCl (From Zofran) AdvReac Vomiting Verified 04/04/25 15:44 Social History housing: [facility] Smoking Status: Never smoker Electronic Cigarette Use: not used second hand exposure: No alcohol intake: never substance use type: does not use ROS ROS ED Constitutional Constitutional ED: Denies chills, fever(s), subjective, sweats or weight loss Eyes Eyes: Denies blurry vision or change in vision ENT ENT ED: Denies ear pain or rhinorrhea Cardiovascular Cardiovascular: Denies chest pain or palpitations Respiratory/Chest Respiratory/Chest: Denies cough, dyspnea or dyspnea on exertion Gastrointestinal Gastrointestinal: Reports nausea, vomiting and other Details: No hematemesis or coffee-ground emesis. ; Denies abdominal pain, constipation, diarrhea or melena Genitourinary Genitourinary ED: Denies dysuria, hematuria or urinary frequency Musculoskeletal Musculoskeletal: Denies arthralgias or myalgias Integumentary Denies rash Neurologic Neurologic: Denies headache(s), paresthesias or weakness Psychiatric Psychiatric: Reports depression and other Details: Patient is angry. She is somewhat manipulative. Hematologic/Lymphatic Hematologic/Lymphatic: Reports systems reviewed and no addt'l complaints, except as documented EXAM Physical Exam Const Vital Signs: 04/04/25 15:40 04/04/25 17:40 04/04/25 19:00 Temperature 98.3 F 97.8 F Temperature Source Oral Oral Pulse Rate 80 83 97 Respiratory Rate 16 16 Blood Pressure 191/105 H 191/99 H 196/120 H Blood Pressure Mean 133 129 145 Pulse Ox 98 98 99 Oxygen Delivery Method Room Air Room Air 04/04/25 21:00 Temperature 97.8 F Temperature Source Oral Pulse Rate 97 Respiratory Rate 16 Blood Pressure 187/103 H Blood Pressure Mean 131 Pulse Ox 99 Oxygen Delivery Method Room Air Positive well nourished and well developed Constitutional Narrative: BMI is 33.1. Vital signs reveal elevated blood pressure. She does have history of elevated blood pressure. General Appearance ED: well developed; Negative for pallor HEENT HEENT Narrative: Head is atraumatic and normocephalic. Ears normal. Nares patent. Teeth appear normal. Posterior pharynx is unremarkable. Eyes PERRL and EOMs intact bilaterally General Eye ED: Negative for pale conjunctiva or scleral icterus Neck no lymphadenopathy, supple and no JVD Resp normal respiratory effort and clear to auscultation bilaterally Cardio regular rate, regular rhythm, S1 normal heart sound, S2 normal heart sound and no murmurs GI normal to inspection, nondistended, normoactive bowel sounds, non-tender, non-distended and no masses; Negative for hepatosplenomegaly Back/Spine no CVA tenderness Extremity normal to inspection General Extremety ED: Negative for edema or tenderness General Extremity: Negative for edema Neuro oriented x3, CN's II-XII intact bilaterally and no sensory deficits noted Sensorium / Orientation: alert Motor Exam: strength 5/5 throughout Psych Psych Narrative: Minimal eye contact. Patient becomes animated at times. Patient has tremor noted. She states this is not a tremor this is her seizure disorder. Attitude: agitated Skin no rashes or lesions noted, no wounds and skin turgor normal General Skin Exam: elasticity normal; Negative for jaundice or pallor MDM MDM MDM Narrative Medical decision making narrative: Case management was consulted. Blood work was obtained to assess for evidence of infection or electrolyte abnormality. Suspect this is behavioral. X-ray of the foot was obtained because she has a bruise and states she injured it. This was obtained to assess for fracture versus contusion. Lab Data Attestation: I reviewed the patient's lab results. Lab results narrative: CBC is unremarkable. BMP reveals an elevated BUN/creatinine of 27 and 1.5 with an estimated GFR 42. This is essentially her baseline BUN and creatinine. Labs: Laboratory Results - last 24 hr 04/04/25 19:26 WBC 9.6 RBC 5.35 Hgb 16.0 H Hct 46.2 MCV 86.4 MCH 29.9 MCHC 34.6 RDW Std Deviation 39.6 RDW Coeff of Jeremiah 12.8 Plt Count 159 MPV 10.7 Immature Gran % (Auto) 0.500 Neut % (Auto) 65.7 Lymph % (Auto) 22.8 [place] % (Auto) 10.3 H Eos % (Auto) 0.4 Baso % (Auto) 0.3 Absolute Neuts (auto) 6.3 Absolute Lymphs (auto) 2.18 Nucleated RBC % 0 Sodium 137 Potassium 5.2 H Chloride 99 Carbon Dioxide 24.2 Anion Gap 13 BUN 27 H Creatinine 1.50 H Estim Creat Clear Calc 39.97 L Est GFR (MDRD) Non-Af 42 L BUN/Creatinine Ratio 17.7 Glucose 94 Calcium 10.0 Radiography Chest X-Ray - ED: Read by ED Physician (Three-view x-ray of the foot was independent with viewed interpreted by me at 2002 as negative. There is no fracture, subluxation, dislocation, soft tissue swelling or foreign body.) Diagnostic Testing: Clinical Impression(s) from Imaging Studies Foot X-Ray 04/04/25 19:26 IMPRESSION: NO ACUTE FRACTURE OR DISLOCATION. Reading Location: [place] [id number] Management Discussion w/another healthcare provider: fabric worker supervisor/Case management (Lori did see patient. She informed this is her third [facility] and the year. She agrees patient does not need psychiatric placement. This is behavioral. Therefore will discharge back to the nursing facility.) Treatment and Re-Evaluation :: Patient has known hypertension. She is asymptomatic and there is no evidence of endorgan dysfunction. This can be treated at the nursing facility. There is no need for urgent or emergent lowering of her blood pressure. Suspect part of this is due to her agitated state. Discharge Plan Triage Chief Complaint: Mental Health ED Provider: Lawson Higgins Dx/Rx/DC Orders Clinical Impression: Manipulative behavior, Tremor, Hyperlipidemia, HTN (hypertension), Contusion of foot, left, History of seizure disorder Instructions: How to Control Your Temper, ED High Blood Pressure Hypertension Prescriptions: No Action atorvastatin 20 mg tablet 20 mg PO QHS buspirone 10 mg tablet 10 mg PO TID levothyroxine 25 mcg capsule 25 mcg PO DAILY loratadine 10 mg capsule 10 mg PO QHS melatonin 5 mg capsule 10 mg PO QHS PRN (Reason: insomnia) acetaminophen [Tylenol] 325 mg capsule 650 mg PO Q4H PRN (Reason: fever or pain) artifi.tears(hypromellose)(PF) 0.3 % drops 2 drp ophthalmic (eye) .Q1HR PRN (Reason: dry eye(s)) guaifenesin 400 mg tablet 400 mg PO Q6H PRN (Reason: cough) potassium chloride 10 mEq capsule, extended release 20 meq PO BID Biofreeze (menthol) 4 % gel 1 applic topical DAILY PRN (Reason: pain) calcium carbonate [Sriram-Gest Antacid] 200 mg calcium (500 mg) tablet,chewable 200 mg PO DAILY cyanocobalamin (vitamin B-12) 1,000 mcg tablet 1,000 mcg PO DAILY levetiracetam [Keppra] 500 mg tablet 500 mg PO BID Qty: 60 4RF albuterol sulfate 1 PUFF inhaler 1 - 2 puff inhalation Q6H PRN PRN (Reason: Sob &/Or Wheezing) lorazepam 1 mg tablet 2 mg PO Q12H Rx Instructions: 1mg at night and 2mg in the morning allopurinol 100 mg tablet 100 mg PO DAILY bisacodyl 10 mg suppository 10 mg CA DAILY PRN (Reason: constipation) clonidine HCl 0.1 mg tablet 0.1 mg PO TID magnesium hydroxide 400 mg/5 mL suspension 30 ml PO DAILY PRN (Reason: constipation) sennosides [senna] 8.6 mg tablet 8.6 mg PO DAILY cholecalciferol (vitamin D3) 50 mcg (2,000 unit) capsule 2,000 unit PO DAILY divalproex 250 mg tablet extended release 24 hr 250 mg PO BID famotidine 20 mg tablet 20 mg PO BID calcium carbonate-vitamin D3 600 mg-10 mcg (400 unit) tablet 1 tab PO BID lisinopril 20 mg tablet 20 mg PO DAILY magnesium oxide 400 mg (241.3 mg magnesium) tablet 400 mg PO DAILY lidocaine 5 % adhesive patch,medicated 1 patch topical DAILY metoprolol tartrate 25 mg tablet 25 mg PO BID desvenlafaxine succinate 50 mg tablet extended release 24 hr 100 mg PO DAILY primidone 50 mg tablet 200 mg PO BID ondansetron 4 mg tablet,disintegrating 4 mg PO Q6H PRN (Reason: nausea and vomiting) Qty: 20 0RF amlodipine 5 mg tablet 5 mg PO BID Primary Care Provider: Sree Jamison Referrals: Sree Jamison MD [Primary Care Provider] - 1-2 Weeks Activity Restrictions/Additional Instructions: Will need to have your blood pressure checked within a week. Print Language: Citizen Of [place] Disposition Disposition: Home, Self Care
[2025-04-04 20:11] LABS: Anion Gap 13 (5-15); BUN 27 mg/dL (4-19); BUN/Creat Ratio 17.7 RATIO (10-20); Carbon Dioxide 24.2 mmol/L (21.0-32.0); Chloride 99 mmol/L (98-108); EST Glomerular Filtration Rate 42 (>60); Estimated Creatinine Clearance 39.97 ml/min (50-250); Glucose 94 mg/dL (70-99); Potassium 5.2 mmol/L (3.3-5.1); Sodium Level 137 mmol/L (133-145)
[2025-04-04 21:00] VITALS: BP 187/103; PULSE 97; RESP 16; TEMP 36.6; O2SAT 99
--- NOTE | 2025-04-04 21:56 | CM.ED ---
? Social Work Psychiatric Assessment Reason for consult: Mental health Informant(s): ?Patient Chief Complaint: ?Patient was sent to the ED from [facility] for a psych eval.? Patient states she was choking during lunch and she was unable to get the attention of staff so she started banging on the table.? Patient then stated that she vomited on herself and ?staff would not help her clean it up??? Patient reports to feeling like she is ?treated like a child?.? Patient denies SI, stating that she would like to be with her mother in [facility] but only when it is Gods timing.? Patient also denies HI, stating there is one aide that she thinks about hurting but would never do anything.?? Patient also denies auditory and visual hallucinations and does not vocalize and delusional thoughts.? Patient does admit to an increase in sleep and a decrease in appetite.?? Patient denies any previous psychiatric admissions and states she does not see a counselor anymore at the [facility] because the patient stopped coming.? Patient states she does not want to live at [facility] anymore, patient was encouraged to speak with staff at the facility to facilitate transfer.? Marital/Social History: Patient is , has one daughter who is 26 Living Situation: Patient is living at [facility], has been there since Jul 2024.? Prior to, patient was at [facility], before that was at [facility] in [place]. 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 Mental Health Treatment/History: ?Patient has been diagnosed with borderline personality disorder, and according to patient anxiety and depression.? Patient is prescribed buspirone, clonidine, Depakote.? Patient denies any past psychiatric hosptializations. Triggers/Stressors to mental health: ?Patient reports stressors at the [facility] like staff, roommate issues, being treated like a child Coping Skills: ?going to activities, talking to someone History of Abuse (physical/sexual/verbal/emotional): patient reports to being bullied in school Substance Abuse Current/Historical: ?minimal alcohol use when Risk to Self/Others: ? Suicidal (thought/plan/intent/attempt): denies ? Access to Lethal Means: n/a ? Homicidal (thought/plan/intent/attempt): denies ? History of Violence (self/others/objects): denies ?Mental Status Exam: ??? Orientation: alert and oriented x 3 ??? Memory: ?intact Appearance/General Behavior: ?calm, directable Mood/Affect: ?angry at times, appropriate Communication Pattern: ?patient responded to questions, would expand on answers Thought Process: ?persecutory General Intellectual Functioning:?? average Judgment: poor Insight: poor Plan:? patient denies HI, SI, auditory or visual hallucinations, patient is not delusional, does admit to a decreased appetite and increase in sleep.? Due to patient not showing any s/sx psychosis or HI/SI, patient can be discharged back to [facility]. Physician consulted and in agreement with same. Lori Azul, DENTIST ATTENDANT, [facility]
[2025-04-04 23:00] VITALS: BP 182/102; PULSE 79; RESP 20; O2SAT 100
[2025-04-05 01:26] VITALS: BP 165/90; PULSE 77; RESP 18; TEMP 36.8; O2SAT 96
--- NOTE | 2025-04-05 01:40 | ED.RN ---
report called to Yue aguirre.
== END 2025-04-05 01:41 | disposition home or self-care (01) ==
PROVIDERS: Emergency Provider Emergency Medicine; PCP Family Medicine; Visit Provider Emergency Medicine
DX: F68.8 Other specified disorders of adult personality and behavior (principal); I50.22 Chronic systolic (congestive) heart failure; I13.0 Hypertensive heart and chronic kidney disease with heart failure and stage 1 through stage 4 chronic kidney disease, or unspecified chronic kidney disease; G40.909 Epilepsy, unspecified, not intractable, without status epilepticus; S90.32XA Contusion of left foot, initial encounter; R11.10 Vomiting, unspecified; N18.9 Chronic kidney disease, unspecified; E78.00 Pure hypercholesterolemia, unspecified; Z79.899 Other long term (current) drug therapy; K21.9 Gastro-esophageal reflux disease without esophagitis; F32.A Depression, unspecified; R45.1 Restlessness and agitation; R25.1 Tremor, unspecified; X58.XXXA Exposure to other specified factors, initial encounter; Y92.129 Unspecified place in nursing home as the place of occurrence of the external cause
CPT/HCPCS: 73630; 80048; 85025; 99285; A4216

== ENCOUNTER 2025-04-23 01:50 | Emergency (ER) | payer MEDICAID, SELFPAY ==
[2025-04-23 01:51] VITALS: BP 174/99; PULSE 68; RESP 18; TEMP 36.6; O2SAT 98; BMI 33.5
--- NOTE | 2025-04-23 02:06 | ED.RN ---
Discussion with pt about proper use of emergency department. Per report from [facility], she told staff that I know exactly what to say to get what I want from the ER. Discussed with pt, pt states to this nurse I know how to play this game, if you don't give me what I want I will just use the gown. Sheet placed over top pt and clothing removed.
--- NOTE | 2025-04-23 02:06 | ED.RN ---
Discussion with pt about proper use of emergency department. Per report from [facility], she told staff that I know exactly what to say to get what I want from the ER. Discussed with pt, pt states to this nurse I know how to play this game, if you don't give me what I want I will just use the gown. Sheet placed over top pt and clothing removed.
--- OUTSIDE RECORDS SUMMARY | 2025-04-23 02:25 | XMS RPT_ITS | CCD ---
Author Organization [facility] Care Team Providers Care Road Commissioner Name Role Phone Dimas Brooke Unavailable Dimas Brooke Unavailable [phone] VALENTINA CHOPRA Unavailable Unavailable VALENTINA CHOPRA Unavailable Unavailable VALENTINA CHOPRA Unavailable Unavailable VALENTINA CHOPRA Unavailable Unavailable SUMMER HALEY Unavailable Unavailable DIMAS BROOKE Unavailable Unavailable Jemma Figueroa Unavailable Unavailable Dimas Brooke Primary Care Provider [phone] Dimas Brooke Unavailable Dimas Brooke Admitting Unavailable Dimas Brooke Attending Unavailable Kingston Jessica Admitting Unavailable [place], Jessica Attending Unavailable Kingston, Jessica Admitting Unavailable Kingston, Jessica Attending Unavailable Leigh Ann Ayala Admitting Unavailable Leigh Ann Ayala Attending Unavailable Bobby Zavala Admitting Unavailable Bobby Zavala Attending Unavailable Dimas Brooke Unavailable SpringNedra Primary Care Provider [phone] Jemma Figueroa Unavailable Unavailable Anel Velasquez Unavailable Unavailable Jeanie Ayala Unavailable Unavailable Ivelisse Shaikh Unavailable Unavailable Update Needed Unavailable Unavailable Urban Purdy Unavailable Unavailable Jeanie Ayala Unavailable Unavailable Dimas Brooke Unavailable Nedra Brewer Primary Care Provider Jeanie Ayala Primary Care Provide r Jeanie Ayala Unavailable Unavailable Unavailable Jeanie Ayala Unavailable Tenisha Lane I Unavailable Unavailable Anel Velasquez Unavailable Shilpa Douglas Unavailable Unavailable Lit Ledezma Unavailable Unavailable Unavailable Franco Heaton Unavailable Unavailable Unavailable Unavailable Larry Eugene Unavailable Unavailabl Matthew Khan Unavailable Unavailable Jeanie Ayala MD Primary Care Prov ider Dimas Brooke MD Unavailable [facility], Nedra Diana Primary Care Provider Jemma Figueroa RN Unavailable Unavailable Larry Eugene Unavailable Unavailabl e Nichol Davidsein Unavailable Unavailable Lopez Gutierrez Unavailable Unavailable Unavailable Unavailable Dinesh Chun Unavailable Unavailable Andres Hussein Unavailable Unavailable Reanna Kemp Unavailable Jeanie Ayala MD Primary Care Prov ider Dimas Brooke MD Primary Care Provider [phone] Dimas Brooke MD Unavailable [facility], Nedra Diana Primary Care Provider Jemma Figueroa RN Unavailable [facility] Provider Caren Gilman Unavailable Unavailable Rayne Lin Unavailable Unavailable Jeison Clancy Unavailable Abhi Richards Unavailable Unavailable CAREN AL Attending Unavailable JEANIE AYALA Primary Care Unav ailable JEANIE AYALA Primary Care Unav ailable CAREN AL Attending Unavailable Jeanie Ayala MD Primary Care Provider Kindra Downing Unavailable Unavailable Jeanie Ayala MD Unavailable [place]av[place], Jeanie Primary Care Unavailable Angel, Dr. Bardales Attending Unavailable Angel, Dr. Bardales Referring Unavailable [place]avalla[place], Jeanie Primary Care Unavailable Angel, Dr. Bardales Attending Unavailable Angel, Dr. Bardales Referring Unavailable [place]avalla[place], Jeanie Primary Care Unavailable Kemp, MsJanina Rubio Attending Unavailabl e [place], Jeanie Primary Care Unavailable Anton, Dr. Lit Crenshaw Attending Unavail able [place], Jeanie Primary Care Unavailable Kemp, MsJanina Rubio Attending Unavailabl e [place]av[place], Jeanie Primary Care Unavailable Kemp, MsJanina Rubio Attending Unavailabl e [place], Jeanie Primary Care Unavailable Kemp, MsJanina Rubio Attending Unavailabl e [place], Jeanie Primary Care Unavailable Kemp, Ms. Reanna Rubio Attending Unavailabl e [place], Jeanie Primary Care Unavailable Maurice, Dr. Abhi Clement Attending Unava ilable [place], Jeanie Primary Care Unavailable Gilman, Dr. Caren Pelaez Attending Unavaila ble [place], Jeanie Primary Care Unavailable LeMgrant, Dr. Larry Cool Attending Unav ailable [place], Jeanie Primary Care Unavailable Gilman, Dr. Caren Pelaez Attending Unavaila ble [place], Jeanie Primary Care Unavailable Gilman, Dr. Caren Pelaez Attending Unavaila ble [place], Jeanie Primary Care Unavailable Angel, Dr. Bardales Attending Unavailable Angel, Dr. Bardales Referring Unavailable [place]avalla[place], Jeanie Primary Care Unavailable Angel, Dr. Bardales Referring Unavailable Angel, Dr. Bardales Attending Unavailable [place]avalla[place], Jeanie Primary Care Unavailable Hamad, Bandar Attending Unavailable Hamad, Bandar Admitting Unavailable [place], Jeanie Primary Care Unavailable [facility], Dr. Andres Maya Attending Unavailabl e [place], Jeanie Primary Care Unavailable Kemp, Ms. Reanna Rubio Attending Unavailabl e [place], Jeanie Primary Care Unavailable LeMgrant, Dr. Larry Cool Attending Unav ailable [place], Jeanie Primary Care Unavailable Justo, MsJanina Rubio Attending Unavailabl e [place], Jeanie Primary Care Unavailable Justo, Ms. Reanna Rubio Attending Unavailabl e [place], Jeanie Primary Care Unavailable Justo, MsJanina Rubio Attending Unavailabl e [place], Jeanie Primary Care Unavailable Justo, MsJanina Rubio Attending Unavailabl e [place], Jeanie Primary Care Unavailable Kemp, MsJanina Rubio Attending Unavailabl e [place], Jeanie Primary Care Unavailable Kemp, MsJanina Rubio Attending Unavailabl e [place], Jeanie Primary Care Unavailable Justo, MsJanina Rubio Attending Unavailabl e [place], Jeanie Primary Care Unavailable Justo, MsJanina Rubio Attending Unavailabl e [place], Jeanie Primary Care Unavailable Justo, MsJanina Rubio Attending Unavailabl e [place], Jeanie Primary Care Unavailable Justo, MsJanina Rubio Attending Unavailabl e [place], Jeanie Primary Care Unavailable Justo, MsJanina Rubio Attending Unavailabl e [place], Jeanie Primary Care Unavailable Justo, Ms. Reanna Rubio Attending Unavailabl e [place], Jeanie Primary Care Unavailable Justo, MsJanina Rubio Attending Unavailabl e [place], Jeanie Primary Care Unavailable Justo, MsJanina Rubio Attending Unavailabl e [place], Jeanie Primary Care Unavailable Justo, MsJanina Rubio Attending Unavailabl e [place], Jeanie Primary Care Unavailable Justo, Ms. Reanna Rubio Attending Unavailabl e [place], Jeanie Primary Care Unavailable Justo, Ms. Reanna Rubio Attending Unavailabl e [place], Jeanie Primary Care Unavailable Justo, Ms. Reanna Rubio Attending Unavailabl e [place], Jeanie Primary Care Unavailable Justo, Ms. Reanna Rubio Attending Unavailabl e [place], Jeanie Primary Care Unavailable Justo, Ms. Reanna Rubio Attending Unavailabl e [place], Jeanie Primary Care Unavailable Justo, Ms. Reanna Rubio Attending Unavailabl e [place], Jeanie Primary Care Unavailable Kemp, Ms. Reanna Rubio Attending Unavailabl e [place], Jeanie Primary Care Unavailable Kemp, Ms. Reanna Rubio Attending Unavailabl e [place], Jeanie Primary Care Unavailable Kemp, Ms. Reanna Rubio Attending Unavailabl e [place], Jeanie [facility] Andres Maya Attending Unavailabl e [place], Jeanie Primary Care Unavailable Pérez, Dr. Matthew Cornejo Attending Unav ailable Pérez, Dr. Matthew Cornejo Referring Unav ailable [place], Jeanie Primary Care Unavailable Anton, Dr. Lit Crenshaw Attending Unavail able [place], Jeanie Primary Care Unavailable [facility], Ms. Massey Attending Unavail able [place], Jeanie Primary Care Unavailable Nichol Davidsein Admitting Unavailable Hamad Bandar Attending Unavailable [place], Jeanie Primary Care Unavailable Kemp, Ms. Reanna Rubio Attending Unavailabl e [place], Jeanie Primary Care Unavailable Kemp, Ms. Reanna Rubio Attending Unavailabl e [place], Jeanie Primary Care Unavailable Brenda, Dr. Lopez Moreau Attending Unavaila ble [place], Jeanie Primary Care Unavailable Kemp, Ms. Reanna Rubio Attending Unavailabl e [place], Jeanie Primary Care Provider [phone] Jamie, Dr. Jeanie Crockett Primary Care Unavailable Kevin, Janina Jones Referring Unajama Lin, Mrs. Rayne Jones Attending Sandyvai labluis Ayala, Dr. Jeanie Crockett Primary Care Unavailable Jamie, Dr. Jeanie Crockett Referring Unavailable Angel, Dr. Bardales Attending Unavailable Jamie, Dr. Jeanie Crockett Primary Care Unavailable Kevin, MrsJanina Jones Referring Unavai edi Lin, Mrs. Rayne Jones Attending Unavai labluis Ayala, Dr. Jeanie Crockett Primary Care Unavailable [place], Dr. Jeanie Crockett Primary Care Unavailable Kemp, Ms. Bowere Puma Referring Unavailabl e Kemp, Janina Reanna Puma Attending Unavailabl e [place], Dr. Jeanie Crockett Primary Care Unavailable Kemp, Ms. Reanna Rubio Referring Unavailabl e Kemp, Janina Reanna Puma Attending Unavailabl e [place], Dr. Jeanie Crockett Primary Care Unavailable Kemp, Ms. Reanna Rubio Referring Unavailabl e Kemp, Ms. Reanna Rubio Attending Unavailabl e [place], Dr. Jeanie Crockett Primary Care Unavailable Kemp, Ms. Reanna Rubio Referring Unavailabl e Kemp, Ms. Bowere Puma Attending Unavailabl e [place], Dr. Jeanie Crockett Primary Care Unavailable [place], Dr. Jeanie Crockett Referring Unavailable [place]av[place], Dr. Jeanie Crockett Attending Unavailable [place], Dr. Jeanie Crockett Primary Care Unavailable [place], Dr. Jeanie Crockett Referring Unavailable [place]av[place], Dr. Jeanie Crockett Attending Unavailable [place], Dr. Jeanie Crockett Primary Care Unavailable [place], Dr. Jeanie Crockett Referring Unavailable T[place], Dr. Jeanie Crockett Attending Unavailable [place], Dr. Jeanie Crockett Primary Care Unavailable [place], Dr. Jeanie Crockett Referring Unavailable [place], Dr. Jeanie Crockett Attending Unavailable [place], Dr. Jeanie Crockett Primary Care Unavailable [place], Dr. Jeanie Crockett Referring Unavailable Young, Dr. Jeison Eddy Attending Unavail able [place], Dr. Jeanie Crockett Primary Care Unavailable Young, Dr. Jeison Eddy Referring Unavail able Young, Dr. Jeison Eddy Attending Unavail able [place], Dr. Jeanie Crockett Primary Care Unavailable MD MATTHEW PÉREZ Referring MD MATTHEW Moseley Attending Unava ilable TavDr. Jeanie escudero Primary Care Unavailable MD MATTHEW PÉREZ Referring Unava ilable MD MATTHEW PÉREZ Attending Unava ilable JEANIE AYALA Primary Care Unavailable JEANIE AYALA Primary Care Unavailable JEANIE AYALA Primary Care Unavailable Jyoti Gupta MD Primary Care Provider Jyoti Gupta MD Primary Care Provider RAÚL HUDSON Attending Unavailable ALONSO, JYOTI MAHARAJ Primary Care Unavaila ble [facility], JYOTI MAHARAJ Referring Unavaila ble [place] JACKSON, DAREK OMER Attending Unava ilable [facility], JYOTI MAHARAJ Primary Care Unavaila ble [facility], JYOTI MAHARAJ Referring Unavaila ble [facility], JYOT[facility] MA[facility] Primary Care Unavaila ble ITZEL DUMAS Attending Unavailable [facility], JYOTI MAHARAJ Referring Unavaila ble CHANCE LALA Attending Unavailable [facility] Consulting Unavai LISA Jarrell Admitting Unavail able [facility] CENTERJESSICA, JYOTI MAHARAJ Primary Care Unavaila ble VALENTINA COHPRA Referring Unavailable TAVJEANIE ESCUDERO Primary Care Unav ailable [facility] Consulting Sandyvai CAROLYNN Larson Attending Unavailable JYOTI GUPTA Referring Unavaila ble NAVEEN HERNANDEZ Admitting Unavailable TAVJEANIE ESCUDERO Primary Care Unav ailable DESTINEE PRICE Attending Unavail able SCOTT TOPETE Admitting Unavailab le [facility] CENTERJESSICA, JYOTI MAHARAJ Primary Care Unavaila ble [facility] Consulting Unavai labJEANIE Mayorga Primary Care Unav ailable JYOTI GUPTA Attending Unavaila ble TAVALLJEANIE DE LA ROSA Primary Care Unavailable LIT LEDEZMA Attending Unavailable EVERETT WALTON Referring Unava ilable TAVALLJEANIE DE LA ROSA Primary Care Unavailable EVERETT WALTON Referring Unava ilable TAVALLJEANIE DE LA ROSA Primary Care Unavailable ROMAN YOBANY, EVERETT DEMOND Referring Unava ilable TAVALLAEE, JEANIE M Primary Care Unavailable ROMAN YOBANY, EVERETT DEMOND Referring Unava ilable TAVALLAEE, JEANIE M Primary Care Unavailable PÉREZ, MATTHEW P Admitting Unavailable PÉREZ, MATTHEW P Attending Unavailable TAVALLAEE, JEANIE M Primary Care Unavailable TAVALLAEE, JEANIE M Primary Care Unavailable CAREN GILMAN Attending Unavailable TAVALLAEE, JEANIE M Primary Care Unavailable LARRY EUGENE Attending Unavailable TAVALLAEE, JEANIE M Primary Care Unavailable LIT LEDEZMA Attending Unavailable KINDRA DOWNING Attending Unavailable TAVALLAEE, JEANIE M Primary Care Unavailable TAVALLAEE, JEANIE M Primary Care Unavailable LOPEZ GUTIERREZ Attending Unavailable TAVALLAEE, JEANIE M Referring Unavailable TAVALLAEE, JEANIE M Primary Care Unavailable TAVALLAEE, JEANIE M Primary Care Unavailable ABHI RICHARDS Attending Unavailable PÉREZ, MATTHEW P Referring Unavailable TAVALLAEE, JEANIE M Primary Care Unavailable PÉREZ, MATTHEW P Referring Unavailable TAVALLAEE, JEANIE M Primary Care Unavailable DIMAS LIN Attending Unavailable DIMAS LIN Referring Unavailable TAVALLAEE, JEANIE M Primary Care Unavailable JYOTI GUPTA Primary Care Unavailable FANG, GWENDOLINE Referring Unavailable FANG, GWENDOLINE Attending Unavailable SELF, SELF Referring Unavailable HEIDY DUTTON Attending Unavailable JYOTI GUPTA Primary Care Unavailable JYOTI GUPTA Primary Care Unavailable SELF, SELF Referring Unavailable HEIDY DUTTON Attending Unavailable SELF, SELF Referring Unavailable HEIDY DUTTON Attending Unavailable JYOTI GUPTA Primary Care Unavailable [place]avalla[place], Jeanie Primary Care Provider Jeanie Ayala MD Primary Care Provider [phone] Jeanie Ayala MD Unavailable KHALIDA MTZ Attending Unavailable VALENTINA MUNOZ Referring Unavailable TAVALLAEE, JEANIE M Primary Care Unavailable SHAYY MCGINNIS Attending Unavailable TAVALLAEE, JEANIE M Primary Care Unavailable DRENIC, SRINIVASA Admitting Unavailable SOHAIL HERNANDEZ Referring Unavailable ROC BANEGAS Attending Unavailable TAVALLAEE, JEANIE Primary Care Unavailable TAVALLAEE, JEANIE Primary Care Unavailable BAVLAVINIA, VALENTINA Attending Unavailable TAVALLAEE, JEANIE Primary Care Unavailable GAYATRI ABAD Attending Unavailable TAVALLAEE, JEANIE Primary Care Unavailable MARY, SOHAIL Attending Unavailable HERNANDEZ, SOHAIL Attending Unavailable TAVALLAEE, JEANIE Primary Care Unavailable BAVLAVINIA, VALENTINA Attending Unavailable TAVALLAEE, JEANIE Primary Care Unavailable HERNANDEZ, SOHAIL Attending Unavailable TAVALLAEE, JEANIE Primary Care Unavailable TAVALLAEE, JEANIE Primary Care Unavailable BAVLAVINIA, VALENTINA Attending Unavailable TAVALLAEE, JEANIE Primary Care Unavailable GAYATRI ABAD Attending Unavailable ONUSKO, MEJIA Referring Unavailable ONUSKMEJIA Young Attending Unavailable TAVALLAEE, JEANIE Primary Care Unavailable TAVALLAEE, JEANIE Primary Care Unavailable BAVLAVINIA, VALENTINA Referring Unavailable SOHAIL HERNANDEZ Attending Unavailable Yaquelin ALEXIS, Dr. Balbuena Primary Care Provider Yaquelin ALEXIS, Dr. Balbuena Attending Provider Sree Pradhan Referring Provider Unavailable Ro ALEXIS, Dr. Sosa Emergency Provider Ro ALEXIS, Dr. Sosa Attending Provider Dr. Lawson Higgins MD Emergency Provider Mathew Perez Attending Unavailable Jamison, Sree Primary Care Unavailable Tim Newby Attending Unavailable Yaquelin, Sree Primary Care Unavailable Yaquelin, Sree Primary Care Unavailable Ian Starr Attending Unavailable Yaquelin, Sree Primary Care Unavailable Ian Starr Attending Unavailable Lawson Higgins Attending Unavailable Yaquelin, Sree Primary Care Unavailable Archie Sanches Attending Unavailable Jamison, Sree Primary Care Unavailable Geovanny Arndt Attending Unavailable Jamison, Sree Primary Care Unavailable Jamison, Sree Primary Care Unavailable Sree Jamison Referring Unavailable Sree Jamison Attending Unavailable Georges Kelley Attending Unavailable Jamison, Sree Primary Care Unavailable Fran Naylor Attending Unavailable Jamison, Sree Primary Care Unavailable Allergies Allergy Classification Reported Allergen(s) Allergy Type Date of Onset Reaction(s) Facility Anti-Epileptic Agents (5 sources) Phenytoin; Translations: [phenytoin] Drug Allergy [address] Work Phone: Macrolides (antibiotic) (18 sources) Erythromycin; Translations: [Erythromycin Base TABS] Drug Allergy Rash [address] Work Phone: Ondansetron (5 sources) Ondansetron; Translations: [Zofran] Drug Allergy Vomiting [address] Work Phone: Opioid Agonists (20 sources) Codeine; Translations: [Codeine Derivatives] Drug Allergy Unknown [address] Work Phone: Penicillins (antibiotic) (13 sources) Penicillins; Translations: [Penicillins] Drug Allergy Rash, Unknown [address] Work Phone: Promethazine (14 sources) Promethazine; Translations: [Phenergan TABS] Drug Allergy Other [address] Work Phone: Comment on above: nausia/emesis. (20 sources) acetaminophen / HYDROcodone; Translations: [HYDROCODONE-ACET AMINOPHEN] Propensity to adverse reactions to drug 8 Other (See Comments), Unknown, Other [facility] (20 sources) codeine; Translations: [Codeine Derivatives] Propensity to adverse reactions to drug 6 Other (See Comments), Unknown, Other, Rash, Nausea And Vomiting [facility] Work Phone: (20 sources) erythromycin; Translations: [ERYTHROMYCIN] Propensity to adverse reactions to drug 5 Unknown, Rash [facility] Work Phone: (20 sources) gabapentin; Translations: [GABAPENTIN] Propensity to adverse reactions to drug 7 GI Intolerance, Nausea And Vomiting, Unknown [facility] Work Phone: (20 sources) Iodine Compounds Propensity to adverse reactions to drug 8 [facility] (20 sources) morphine; Translations: [MORPHINE SULFATE] Propensity to adverse reactions to drug 6 Other (See Comments) [facility] Work Phone: (20 sources) Penicillins; Translations: [PENICILLINS] Propensity to adverse reactions to drug 5 Rash [facility] Work Phone: (20 sources) promethazine; Translations: [Phenergan] Propensity to adverse reactions to drug 5 Other (See Comments), Unknown, Other, Nausea And Vomiting [facility] (20 sources) traMADol; Translations: [tramadol] Propensity to adverse reactions to drug 6 Unknown, Rash [facility] Work Phone: (20 sources) CT: IODINATED CONTRAST- ORAL AND IV DYE Propensity to adverse reactions to drug 8 [facility] (5 sources) promethazine; Translations: [PROMETHAZINE HCL] Drug Allergy 5 Vomiting [facility] (20 sources) OTHER; Translations: [OTHER] Propensity to adverse reactions (disorder) 5 [facility] (20 sources) HYDROmorphone; Translations: [Dilaudid] Drug Allergy 8 Unknown, Rash, Nausea and vomiting [facility] (20 sources) ondansetron; Translations: [ONDANSETRON HCL] Drug Allergy 8 Other (See Comments), Other [facility] (20 sources) Azithromycin; Translations: [Azithromycin TABS] Drug Allergy 7 Unknown, Rash, Nausea And Vomiting [facility] [address] Work Phone: (20 sources) Penicillins; Translations: [Penicillins] drug allergy Rash, Unknown [facility] [address] Work Phone: (20 sources) Ondansetron; Translations: [Zofran] Drug Allergy Vomiting [facility] Work Phone: (20 sources) Phenytoin; Translations: [phenytoin] Drug Allergy 1 Unknown [facility] Work Phone: (18 sources) Promethazine Drug Allergy Other [facility] Work Phone: Comment on above: nausia/emesis. (9 sources) Acetaminophen; Translations: [ACETAMINOPHEN] Drug Allergy 7 Rash [facility] (20 sources) Promethazine; Translations: [Phenergan TABS] Drug Allergy [facility] Work Phone: (20 sources) HYDROcodone; Translations: [HYDROCODONE] Drug Allergy 7 Rash, Unknown [facility] (20 sources) Morphine Drug Allergy 6 Other, Unknown, Nausea And Vomiting [facility] (1 source) Penicillins Propensity to adverse reactions to drug 6 Rash [facility] (20 sources) Penicillins Propensity to adverse reactions to drug 6 Rash, Unknown [facility] (20 sources) Acetaminophen / HYDROcodone; Translations: [Vicodin TABS] Drug Allergy [address] Work Phone: (3 sources) gabapentin Drug Allergy Unknown [facility] (3 sources) HYDROmorphone Drug Allergy Unknown [facility] (20 sources) Acetaminophen Drug Allergy 7 Rash [facility] (20 sources) Ondansetron Drug Allergy 7 Other, Nausea And Vomiting [facility] (20 sources) Penicillins Drug Allergy 5 Rash, Unknown [facility] (20 sources) Erythromycin Base; Translations: [ERYTHROMYCIN BASE] Drug Allergy 7 Rash, Unknown [facility] (3 sources) Azithromycin; Translations: [AZITHROMYCIN] Drug Allergy 3 [facility] (1 source) Penicillins Drug Allergy 3 Unknown [facility] Work Phone: (3 sources) HYDROcodone; Translations: [hydrocodone bitartrate] Drug Allergy 5 Rash [facility] (1 source) Acetaminophen Drug Allergy 5 [facility] (1 source) Codeine Drug Allergy 5 [facility] (1 source) gabapentin Drug Allergy 5 [facility] (1 source) HYDROcodone Drug Allergy 5 [facility] (1 source) HYDROmorphone Drug Allergy 5 [facility] (1 source) Morphine Drug Allergy 5 [facility] (1 source) Ondansetron Drug Allergy 5 [facility] (1 source) Penicillins Drug allergy (disorder) 5 [facility] (1 source) traMADol Drug Allergy 5 [facility] Medications Current Medications Medication Drug Class(es) Dates Sig (Normalized) Sig (Original) albuterol 90 mcg/actuation inhaler (3 sources) Start: 02-24-2019 take 2 puff(s) by inhalation every six hours as needed albuterol 90 mcg/actuation inhaler Inhale 2 puffs every 6 (six) hours as needed for shortness of breath . 5 02/24/2019 Active allopurinol 100 mg oral tablet (20 sources) Xanthine Oxidase Inhibitor Start: 03-21-2025 take 1 tablet by mouth once daily Allopurinol 100 mg tablet Active 100 mg PO DAILY March 21, 2025 12:00am Start: 03-13-2025 End: 03-15-2025 take 100 mg by mouth once daily 100 mg, Oral, Daily, F irst dose on Wed03/13/25 at 1315 Start: 03-05-2020 End: 03-21-2025 take 1 tablet by mouth once daily Allopurinol 300 MG tablet Discontinued 300 mg PO DAILY March 05, 2020 12:00am March 21, 2025 9:57am allopurinol (Zyl oprim) 300 MG tablet Take 100 mg by mouth daily. Active Allopurinol 300 MG Oral Tablet Quantity: 0 Refills: 0 Ordered: 07-Aug-2019 DO Active amLODIPine 5 mg oral tablet (20 sources) Dihydropyridine Calcium Channel [place] Start: 11-04-2024 End: 03-15-2025 take 1 tablet by mouth twice daily Amlodipine 5 mg tablet Active 5 mg PO TWICE A DAY November 04, 2024 1:00am Start: 01-01-2024 End: 01-01-2024 take 10 mg by mouth once daily 10 mg, Oral, Daily, Fir st dose on Wed01/01/24 at 0900 Start: 12-01-2020 End: 12-03-2020 take 10 mg by mouth once daily 10 mg, Oral, Daily, Fir st dose on 12/01/20 at 2100 Start: 12-01-2020 End: 09-26-2024 take 1 tablet by mouth once daily Amlodipine 10 mg tablet Discontinued 10 mg PO DAILY June 05, 2021 12:00am September 26, 2024 12:28pm Start: 03-05-2020 End: 06-05-2021 take 1 tablet by mouth once daily Amlodipine 5 MG tablet Discontinued 5 mg PO DAILY March 05, 2020 12:00am June 05, 2021 11:30am take 5 mg by mouth once daily am LODIPine (Norvasc) 10 MG tablet Take 5 mg by mouth daily. Active Norvasc 10 MG Or al Tablet Quantity: 0 Refills: 0 Ordered: 29-Jan-2021 DO Active benzocaine 0.2 mg/mg / menthol 0.0026 mg/mg oral gel (3 sources) Standardized Chemical Allergen benzocaine-menthoL 2 0-0.26 % Gel by Gums route every 6 (six) hours as needed (sore gums) Apply to gums as needed . Active bisacodyl 10 mg rectal suppository (20 sources) Stimulant Laxative Start: 03-21-2025 Bisacodyl 10 mg suppository Active 10 mg RC DAILY as needed for constipation March 21, 2025 12:00am Start: 03-13-2025 End: 03-15-2025 take 10 mg rectal route every twenty-four hours as needed for constipation Start: 12-31-2023 End: 01-01-2024 take 10 mg rectal route once daily as needed for constipation 10 mg, Rectal, Daily PRN, constipation, Starting on Wed12/31/23 at 2337 carbamide peroxide 65 mg/ml otic solution (20 sources) Start: 02-25-2023 End: 01-01-2024 carbamide peroxide (Debrox) 6.5 % otic solution Indications: Impacted cerumen of right ear Administer 5 drops into the right ear 2 times a day for 5 days. 15 mL 0 02/25/2023 03/02/2023 Active Start: 07-21-2022 End: 11-17-2023 carbamide peroxide (Debrox) 6.5 % otic solution Administer into affected ear(s). USE DIRECTED 07/21/2022 11/17/2023 Discontinued (Entered in Error) Start: 07-21-2022 Debrox 6.5 % O tic Solution USE DIRECTED. Quantity: 1 Refills: 0 Ordered: 21-Jul-2022 Jeanie Ayala MD Start : 21-Jul-2022 Active Debrox 6.5% otic solution ; 2 drop(s) in each ear once a day Quantity: 0 Refills: 0 Ordered: 26-Nov-2022 Aiden Cuellar Generic Substitution Allowed cholecalciferol 0.05 mg oral capsule (20 sources) Vitamin D Start: 03-21-2025 take 1 capsule by mouth once daily Cholecalciferol (Vitamin D3) 50 mcg (2,000 unit) capsule Active 2000 U PO DAILY March 21, 2025 12:00am Start: 03-13-2025 End: 03-15-2025 take 2000 [IU] by mouth once daily 2,000 Units, Oral, Daily, First dose on Wed03/13/25 at 1315 End: 11-17-2023 take 1 capsule by mouth every week cholecalciferol (Vitamin D-3) 1,250 mcg (50,000 unit) capsule Take 1 capsule (50,000 Units) by mouth once a week. 11/17/2023 Discontinued (Entered in Error) take 1 tablet by napoleon th once daily Vitamin D3 125 mcg (5000 intl units) oral tablet ; 1 tab(s) orally once a day Quantity: 0 Refills: 0 Ordered: 21-Jan-2022 Heidy Key Generic Substitution Allowed clobetasol propionate 0.5 mg/ml topical solution (20 sources) Corticosteroid Start: 05-31-2024 End: 08-30-2024 clobetasol (Temovate) 0.05 % external solution Indications: Seborrheic dermatitis Apply to affected areas on scalp BID x 6 weeks Stop using when clear. Repeat as needed for flares. Do not use on face, armpits, groin. 50 mL 3 08/30/2024 Active Start: 04-07-2017 End: 04-07-2018 clobetasol (TEMOVATE) 0.05 % scalp solution Apply topically daily Apply thin film onto dry scalp affected areas only. Leave in place for 15 min before lathering and rinsing.. 50 mL 0 04/07/2017 04/07/2018 Active cloNIDine hydrochloride 0.1 mg oral tablet (6 sources) Central alpha-2 Adrenergic Agonist Start: 03-21-2025 take 1 tablet by mouth three times daily Clonidine Hcl 0.1 mg tablet Active 0.1 mg PO THREE TIMES A DAY March 21, 2025 12:00am Start: 03-13-2025 End: 03-15-2025 take 0.1 mg by mouth three times daily 0.1 mg, Oral, 3 times daily, First dose on Wed03/13/25 at 2044 dextran 70 1 mg/ml / glycerin 2 mg/ml / hypromellose 3 mg/ml ophthalmic solution (14 sources) Plasma Volume Street Engineer, Non-Standardized Chemical Allergen Artificial Tears ophthalmic solution ; 2 drop(s) in each eye every 1 to 2 hours, As Needed Quantity: 0 Refills: 0 Ordered: 26-Nov-2022 Aiden Cuellar Generic Substitution Allowed take 1 drop(s) into the eye(s) four times daily Artificial Tears ophthalmic solution ; 1 drop(s) to each affected eye 4 times a day Quantity: 0 Refills: 0 Ordered: 08-Sep-2021 Johana Hernandez Generic Substitution Allowed dextromethorphan hydrobromide 2 mg/ml / guaiFENesin 20 mg/ml oral suspension (4 sources) Uncompetitive X-gtvogh-U-aspartate Receptor Antagonist, Sigma-1 Agonist guaiFENesin-dextrome thorphan (Robitussin DM) 100-10 MG/5ML syrup Take 20 mL by mouth every 12 hours as needed for cough. Active End: 04-05-2024 take 15 mL by mouth every four hours as needed dextromethorphan-guaifenesin (Robitussin DM) 10-100 mg/5 mL oral liquid Take 15 mL by mouth every 4 hours if needed for cough or congestion. 04/05/2024 Discontinued (Therapy completed) famotidine 20 mg oral tablet (20 sources) Histamine-2 Receptor Antagonist Start: 08-12-2023 End: 03-15-2025 take 1 tablet by mouth twice daily Famotidine 20 mg tablet Active 20 mg PO TWICE A DAY September 26, 2024 1:00am Start: 01-07-2022 End: 01-01-2024 famotidine (Pepcid) 20 MG ta blet 08/12/2023 Active Start: 03-16-2019 End: 03-16-2019 take 20 mg by mouth twice daily 20 mg, Oral, 2 times d aily, First dose on [place] 03/16/19 at 0915 Start: 01-04-2018 End: 06-05-2021 take 1 tablet by mouth once daily Famotidine 40 MG tablet Discontinued 40 mg PO DAILY March 05, 2020 12:00am June 05, 2021 11:42am take 2 tablets [facility] daily famotidine (PEPCID) 10 MG tablet Take 2 (two) tablets (20 mg total) by mouth daily . Active take 6 tablets by mo [facility] once daily famotidine 20 mg oral tablet ; orally once a day Quantity: 0 Refills: 0 Ordered: 21-Jan-2022 Heidy Key Generic Substitution Allowed guaiFENesin 400 mg oral tablet (20 sources) Start: 06-05-2021 End: 12-23-2021 take 1 tablet by mouth every six hours as needed for cough Guaifenesin 400 mg tablet Active 400 mg PO EVERY 6 HOURS as needed for cough December 23, 2021 11:24am take 3 tablets by mo [facility] every six hours as needed guaiFENesin (Humibid 3) 400 MG tablet Ta ke 400 mg by mouth every 6 hours as needed. Active take 1 tablet by [facility] every six hours as needed guaiFENesin 400 mg oral tablet ; 1 tab(s ) orally every 6 hours, As Needed - for allergy symptoms Quantity: 0 Refills: 0 Ordered: 08-Sep-2021 Johana Hernandez Generic Substitution Allowed hydrocortisone 10 mg/ml rectal cream (2 sources) Corticosteroid Hydrocortisone, Perianal, 1 % cream Insert 1 Application into the rectum every 4 hours as needed for hemorrhoids. Active hydrocortisone 10 mg/ml / neomycin 3.5 mg/ml / polymyxin b [id number] unt/ml otic solution (9 sources) Aminoglycoside Antibacterial, Polymyxin-class Antibacterial, Corticosteroid Start: 01-12-2023 End: 01-19-2023 dvjnokcl-xhcnjsaof-GM (Cortisporin) otic solution Indications: Otalgia of both ears Administer 2 drops into the right ear in the morning and 2 drops at noon and 2 drops in the evening and 2 drops before bedtime. Do all this for 7 days. 1 mL 0 01/12/2023 01/19/2023 Active Start: 07-17-2021 End: 11-04-2021 Eymzleug-Iuidqyhbk-SG 1 % Ot ic Solution INSTILL 4 DROP 4 times daily Quantity: 1 Refills: 0 Ordered: 17-Jul-2021 Sammie Iglesias MD Start : 17-Jul-2021 End : 04-Nov-2021 Complete hypromellose 3 mg/ml ophthalmic solution (6 sources) Start: 06-05-2021 Artifi.Tears(H ypromellose)(Pf) 0.3 % drops Active 2 NMA OPHTHALMIC .Q1HR as needed for dry eye(s) June 05, 2021 12:00am End: 06-06-2024 take 1 drop(s) into the eye(s) every hour as needed artificial tears,hypromellose, (ISOPTO TEARS) 0.5 % ophthalmic solution Administer 1 (one) drop to both eyes every hour as needed . 06/06/2024 Discontinued (Stop Taking at Discharge) End: 06-06-2024 artificial tears,hypromellos e, (ISOPTO TEARS) 0.5 % ophthalmic solution Administer 1 (one) drop to both eyes at bedtime . 06/06/2024 Discontinued (Stop Taking at Discharge) ibuprofen 600 mg oral tablet (19 sources) Nonsteroidal Anti-inflammatory Drug Start: 10-14-2023 take 1.5 tablets by mouth every eight hours for pain ibuprofen 600 mg tablet Indications: Endometriosis determined by laparoscopy Take 1.5 tablets (900 mg) by mouth every 8 hours if needed for moderate pain (4 - 6) for up to 30 doses. 20 tablet 10/14/2023 Active Start: 07-10-2021 End: 01-03-2024 take 1 tablet by mouth three times daily at mealtime ibuprofen 600 mg oral tablet ; 1 tab(s) orally 3 times a day Quantity: 21 Refills: 0 Ordered: 10-Jul-2021 Lopez Gutierrez Start: 10-Jul-2021 Status: Other Generic Substitution Allowed Comments: Do not take this drug if you are .It is very important that you take or use this exactly as directed. Do not skip doses or discontinue unless directed by your doctor.May cause drowsiness or dizziness.Obtain medical advice before taking any non-prescription drugs as some may affect the action of this medication.Take with food or milk. End: 03-15-2025 take 1 tablet by mouth every eight hours as needed for pain and pain ibuprofen 800 MG tablet Take 800 mg by mouth every 8 hours as needed for mild pain (1-3) or moderate pain (4-6). 03/15/2025 Discontinued (Stop taking at discharge) Comment on above: Do not take this gregory g if you are .It is very important that you take or use this exactly as directed. Do not skip doses or discontinue unless directed by your doctor.May cause drowsiness or dizziness.Obtain medical advice before taking any non-prescription drugs as some may affect the action of this medication.Take with food or milk. ketoconazole 20 mg/ml medicated shampoo (19 sources) Azole Antifungal Start: 06-01-20 End: 08-30-20 ketoconazole (NIZOral) 2 % shampoo Indications: Seborrheic dermatitis Use to wash the scalp 3 times weekly allowing to sit 3 minutes before rinsing. May use regular shampoo and condition after. 120 mL 3 08/30/2024 Active levetiraceta (4 sources) take 500 mg by mouth twice daily levetiraceta ; 500 milligram(s) orally 2 times a day Quantity: 0 Refills: 0 Ordered: 05-Dec-2021 Chance Rosa Status: Other Generic Substitution Allowed take 500 mg by mouth twice daily levetiraceta ; 500 milligram(s) orally 2 times a day Quantity: 0 Refills: 0 Ordered: 05-Dec-2021 Chance Rosa Generic Substitution Allowed lidocaine 0.05 mg/mg medicated patch (20 sources) Antiarrhythmic, Amide Local Anesthetic Start: 09-26-2024 Lidocaine 5 % adhesi ve patch,medicated Active 1 NMA TOPICAL DAILY September 26, 2024 1:00am Start: 06-05-2024 End: 06-06-2024 apply 1 dose transdermal route once daily 1 patch, Transdermal, Administer over 12 Hours, Daily, First dose on Wed06/05/24 at 0900 Start: 03-24-2024 lidocaine (Lid oderm) 5 % patch 03/24/2024 Active apply 1 dose transde rmal route once daily in the morning lidocaine (LIDODERM) 5 % patch Place 1 (one) patch on the skin every morning To back Remove & Discard patch within 12 hours or as directed by . Active lisinopril 20 mg oral tablet (20 sources) Angiotensin Converting Enzyme Inhibitor Start: 09-26-2024 take 1 tablet by mouth once daily Lisinopril 20 mg tablet Active 20 mg PO DAILY September 26, 2024 1:00am Start: 01-01-2024 End: 01-01-2024 take 20 mg by mouth once daily 20 mg, Oral, Daily, Fir st dose on 01/01/24 at 1200 Start: 08-12-2023 End: 03-13-2025 lisinopril 20 MG tablet 07/1903/13/2025 Discontinued Start: 03-31-2023 End: 07-19-2024 take 1 tablet by mouth twice daily lisinopril 10 mg tablet Indications: Essential hypertension, benign Take 1 tablet (10 mg) by mouth 2 times a day. For blood pressure 180 tablet 3 07/20/2023 07/19/2024 Active Start: 10-29-2022 take 1 tablet by napoleon th once daily Lisinopril 10 MG Oral Tablet TAKE 1 TAB DAILY Quantity: 30 Refills: 11 Ordered: 29-Oct-2022 Jamie ALEXIS, Jeanie Start : 29-Oct-2022 Active Start: 10-12-2018 End: 12-01-2020 take 1 tablet by mouth once daily lisinopril (PRINIVIL,ZESTRIL) 10 MG tablet Indications: Essential hypertension Take 1 (one) tablet (10 mg total) by mouth daily . 90 tablet 3 03/01/2019 Active Start: 06-11-2012 End: 10-12-2018 take 1 tablet by mouth once daily lisinopril (PRINIVIL,ZESTRIL) 40 MG tablet Take 1 (one) tablet (40 mg total) by mouth daily. 30 tablet 11 05/23/2018 10/12/2018 Discontinued take 1 tablet by napoleon th once daily in the morning lisinopriL (PRINIVIL,ZESTRIL) 20 MG tablet Take 1 (one) tablet (20 mg total) by mouth every morning . Active Lisinopril 30 MG Oral Tablet Refills: 0 DO Active Magnesium Chloride (3 sources) magnesium chlori de ; 400 mg Quantity: 0 Refills: 0 Ordered: 04-Feb-2023 Linda Hernandezli Generic Substitution Allowed Magnesium Hydroxide (20 sources) Start: 03-21-2025 take 1 mL by mouth once daily as needed for constipation Magnesium Hydroxide 400 mg/5 mL suspension Active 30 mL PO DAILY as needed for constipation March 21, 2025 12:00am Start: 03-13-2025 End: 03-15-2025 take 15 mL by mouth twice daily as needed for constipation magnesium hydroxide (Milk of Magnesia) 400 mg/5 mL suspension Take 15 mL by mouth 2 times a day as needed for constipation. Active magnesium oxide 400 mg oral tablet (20 sources) Start: 12-02-2022 End: 03-15-2025 take 1 tablet by mouth once daily Magnesium Oxide 400 mg (241.3 mg magnesium) tablet Active 400 mg PO DAILY September 26, 2024 1:00am menthol 0.04 mg/mg topical gel (12 sources) Start: 12-23-2021 Menthol (Biofr eeze (Menthol)) 4 % gel Active 1 NMA TOPICAL DAILY as needed for pain December 23, 2021 1:00am End: 03-13-2025 Menthol, Topical Analgesic, (Icy Hot) 5 % patch Apply topically. 03/13/2025 Discontinued menthol 0.076 mg/mg / methyl salicylate 0.29 mg/mg topical ointment (20 sources) methyl salicylat e-menthol (Icy Hot) 29-7.6 % ointment ointment Apply 1 Application topically every 12 hours if needed. Active Icy Hot topical cream ; Apply topically to affected area every 12 hours, As Needed Quantity: 0 Refills: 0 Ordered: 26-Nov-2022 Aiden Cuellar Generic Substitution Allowed metoprolol tartrate 25 mg oral tablet (20 sources) beta-Adrenergic Paola Start: 06-05-2024 End: 06-06-2024 take 5 mg intravenously every four hours as needed 5 mg, Intravenous, Every 4 hours PRN, systolic Bp >180, Starting on Wed06/05/24 at 0053 Start: 11-05-2022 End: 02-25-2023 take 1 tablet by mouth once daily Metoprolol Tartrate 25 MG Oral Tablet TAKE 1 TABLET DAILY. Quantity: 0 Refills: 0 Ordered: 05-Nov-2022 DO Start : 05-Nov-2022 Active Start: 07-21-2022 End: 03-15-2025 take 1 tablet by mouth twice daily Metoprolol Tartrate 25 mg tablet Active 25 mg PO TWICE A DAY September 26, 2024 1:00am Start: 07-21-2022 take 1 tablet by napoleon once daily Metoprolol Succinate ER 25 MG Oral Tablet Extended Release 24 Hour Take 1 tablet daily Quantity: 30 Refills: 11 Ordered: 21-Jul-2022 Jeanie Ayala MD Start : 21-Jul-2022 Active 1 ml morphine sulfate 4 mg/ml cartridge (4 sources) Opioid Agonist Start: 06-06-2024 End: 06-09-2024 morphine 4 mg/mL Syrg Indications: S/P laparoscopic appendectomy Inject 0.5 mL (2 mg total) into the shoulder, thigh, or buttocks every 6 (six) hours as needed (Days supply per fill: 3) . 6 mL 06/06/2024 06/09/2024 Active Start: 06-05-2024 End: 06-06-2024 inject 4 mg by intramuscular injection every four hours as needed 4 mg, Intramuscular, Every 4 hours PRN, moderate to severe pain, Starting on Wed06/05/24 at 1248 Start: 11-17-2023 End: 11-17-2023 morphine injection 4 mg naloxone (NARCAN) 4 mg/actua tion [place] (3 sources) Start: 06-06-2024 naloxone (NARC AN) 4 mg/actuation [place] Administer 1 spray into one nostril for known or suspected opioid overdose. If patient worsens or does not respond, may repeat in 2-3 minutes. . 2 each 06/06/2024 Active Start: 06-06-2024 naloxone (NARC AN) 4 mg/actuation [place] Administer 1 spray into one nostril for known or suspected opioid overdose. If patient worsens or does not respond, may repeat in 2-3 minutes. . 2 each 06/06/2024 ondansetron 4 mg disintegrating oral tablet (7 sources) Serotonin-3 Receptor Antagonist Start: 09-26-2024 take 1 tablet by mouth every six hours as needed for nausea and vomiting Ondansetron 4 mg tablet,disintegrating Active 4 mg PO EVERY 6 HOURS as needed for nausea and vomiting September 26, 2024 1:00am Start: 06-06-2024 End: 06-13-2024 take 1 tablet by mouth every eight hours as needed for nausea ondansetron (ZOFRAN-ODT) 4 MG disintegrating tablet Dissolve 1 (one) tablet (4 mg total) on top of tongue every 8 (eight) hours as needed for nausea . 20 tablet 06/06/2024 Active Start: 06-05-2024 End: 06-06-2024 take 4 mg intravenously every six hours as needed for nausea and vomiting 4 mg, Intravenous, Every 6 hours PRN, nausea, vomiting, Starting on Wed06/05/24 at 1806 primadone (4 sources) take 100 mg by mouth twice daily primadone ; 100 milligram(s) orally 2 times a day Quantity: 0 Refills: 0 Ordered: 05-Dec-2021 Chance Rosa Status: Other Generic Substitution Allowed take 100 mg by mouth twice daily primadone ; 100 milligram(s) orally 2 times a day Quantity: 0 Refills: 0 Ordered: 05-Dec-2021 Chance Rosa Generic Substitution Allowed Sennosides (Senna) 8.6 mg tablet (2 sources) Start: 03-21-2025 take 1 tablet by mouth once daily Sennosides (Senna) 8.6 mg tablet Active 8.6 mg PO DAILY March 21, 2025 12:00am sodium phosphate, dibasic 59.3 mg/ml / sodium phosphate, monobasic 161 mg/ml enema (5 sources) take 1 dose rectal route once daily as needed for constipation sodium phosphates (FLEETS ADULT) 19-7 gram/118 mL Enem Indications: constipation Insert 1 (one) each into the rectum daily as needed Reasons: constipation. Active triamcinolone acetonide 0.001 mg/mg topical ointment (20 sources) Corticosteroid Start: 05-31-2024 End: 08-30-2024 triamcinolone (Kenalog) 0.1 % ointment Indications: Seborrheic dermatitis Apply to affected areas behind ears BID x 2 weeks Stop using when clear. Repeat as needed for flares. 80 g 1 08/30/2024 Active Start: 09-16-2022 Triamcinolone Acetonide 40 MG/ML Injection Suspension INJECT 1 ML Intra-articular Quantity: 0 Refills: 0 Ordered: 16-Sep-2022 Kemp DOMIReanna Start : 16-Sep-2022 Complete 24 hr divalproex sodium 250 mg extended release oral tablet (20 sources) Start: 03-21-2025 take 1 tablet by mouth twice daily Divalproex 250 mg tablet extended release 24 hr Active 250 mg PO TWICE A DAY March 21, 2025 12:00am Start: 12-31-2023 End: 01-01-2024 take 500 mg by mouth twice daily 500 mg, Oral, 2 times daily, First dose (after last modification) on Wed12/31/23 at 2340, CATEGORY D HAZARDOUS DRUG use safe handling precautions. Use reference link to view PPE guidelines. DO NOT CRUSH OR CHEW. Start: 08-17-2023 End: 07-18-2024 divalproex (Depakote ER) 250 MG 24 hr tablet 08/17/2023 07/18/2024 Discontinued (Reorder) Start: 06-02-2022 take 1 tablet by napoleon th once daily at bedtime divalproex (Depakote ER) 500 mg 24 hr tablet Take 1 tablet (500 mg) by mouth once daily at bedtime. 0 06/02/2022 Active Start: 12-01-2020 End: 12-03-2020 take 500 mg by mouth once at bedtime 500 mg, Oral, At bedtime, First dose on Wed12/01/20 at 2100 CATEGORY D HAZARDOUS DRUG use safe handling precautions. Use reference link to view PPE guidelines. DO NOT CRUSH OR CHEW. Start: 03-05-2020 End: 03-21-2025 take 1 tablet by mouth once daily in the morning Divalproex 250 mg tablet extended release 24 hr Discontinued 250 mg PO EVERY MORNING August 13, 2022 9:04pm March 21, 2025 9:57am Start: 07-13-2018 End: 08-18-2024 take 1 tablet by mouth twice daily divalproex (Depakote ER) 500 mg 24 hr tablet Take 1 tablet (500 mg) by mouth 2 times a day. 06/02/2022 Active Start: 06-14-2017 End: 03-21-2025 take 1 tablet by mouth every twenty-four hours at bedtime Divalproex 500 mg tablet extended release 24 hr Discontinued 500 mg PO AT BEDTIME August 13, 2022 9:04pm March 21, 2025 9:57am Start: 08-25-2016 take 2 tablets by mo uth once daily in the morning, then take 2 tablets by mouth DEPAKOTE ER 250 mg 24 hr tablet TAKE 2 TABLET BY MOUTH EVERY DAY IN THE MORNING AND TAKE 2 TABLETS AT NIGHT 08/25/2016 Active Start: 08-25-2016 End: 03-16-2019 DEPAKOTE ER 250 mg 24 hr tab let TAKE 2 TABLET BY MOUTH EVERY DAY IN THE MORNING AND TAKE 2 TABLETS AT NIGHT 08/25/2016 03/16/2019 Discontinued (Stop Taking at Discharge) Start: 08-25-2016 End: 03-16-2019 take 2 tablets by mouth once daily in the morning, then take 2 tablets by mouth DEPAKOTE ER 250 mg 24 hr tablet TAKE 2 TABLET BY MOUTH EVERY DAY IN THE MORNING AND TAKE 2 TABLETS AT NIGHT 08/25/2016 03/16/2019 Discontinued (Stop Taking at Discharge) Start: 06-30-2013 End: 11-26-2013 Depakote ; Take 3 tablets 2 times a day Quantity: 180 Refills: 4 Ordered: 30-Jun-2013 Linnea Swartz Start: 30-Jun-2013 End: 26-Nov-2013 Status: Discontinued Generic Substitution Allowed Start: 05-02-2013 take 1 tablet by napoleon th twice daily Depakote 500 MG Oral Tablet Delayed Release TAKE 1 TABLET TWICE DAILY. Refills: 0 DO Start : 02-May-2013 Active End: 11-17-2023 take 1 tablet by mouth once daily in the morning divalproex (Depakote) 250 mg EC tablet Take 1 tablet (250 mg) by mouth once daily in the morning. 11/17/2023 Discontinued (Entered in Error) Divalproex Sodiu m 250 MG Oral Tablet Delayed Release Quantity: 0 Refills: 0 Ordered: 29-Jan-2021 DO Active Divalproex Sodiu m 500 MG Oral Tablet Delayed Release Quantity: 0 Refills: 0 Ordered: 29-Jan-2021 DO Active vitamin b12 1 mg oral tablet (20 sources) Vitamin B12 Start: 09-08-2021 End: 03-15-2025 take 1 tablet by mouth once daily Cyanocobalamin (Vitamin B-12) 1,000 mcg tablet Active 1000 ug PO DAILY December 23, 2021 1:00am take 1 tablet by mouth once dandre y cyanocobalamin, vitamin B-12, (Vitamin B-12) 1,000 mcg tablet extended release Take 1 tablet (1,000 mcg) by mouth once daily. Active Completed/Discontinued Medications Medication Drug Class(es) Dates Sig (Normalized) Sig (Original) Acetaminophen (20 sources) Start: 03-13-2025 End: 03-15-2025 take 1 tablet by mouth every six hours as needed for pain and fever acetaminophen (Tylenol) tablet 650 mg Start: 12-31-2023 End: 01-01-2024 take 1 tablet by mouth every four hours as needed for pain and headache 650 mg, Oral, Every 4 hours PRN, mild pain, fever 100.4 F or greater, headaches, Starting on Wed12/31/23 at 2215 Start: 09-16-2023 End: 09-16-2023 acetaminophen (Tylenol) tabl et 650 mg Start: 08-13-2023 End: 08-13-2023 acetaminophen (Tylenol) tabl et 650 mg Start: 07-25-2023 End: 07-25-2023 acetaminophen (Tylenol) tabl et 975 mg Start: 06-05-2021 take 2 capsules by m outh every four hours as needed for pain Acetaminophen (Tylenol) 325 mg capsule Active 650 mg PO Q4H as needed for fever or pain June 05, 2021 12:00am Start: 12-01-2020 End: 12-03-2020 take 1 tablet by mouth every four hours as needed 650 mg, Oral, Every 4 hours PRN, mild pain, fever 100.4 F or greater, headaches, Starting Wed12/01/20 at 1842 Start: 03-16-2019 End: 03-16-2019 take 1 tablet by mouth every six hours as needed acetaminophen (TYLENOL) tablet 650 mg End: 03-13-2025 acetaminophen (Tylenol) 500 MG tablet Take by mouth. 03/13/2025 Discontinued End: 04-05-2024 take 1 capsule by mouth every six hours as needed acetaminophen 500 mg capsule Take 1 capsule (500 mg) by mouth every 6 hours if needed. 04/05/2024 Discontinued (Therapy completed) take 2 tablets [facility] every eight hours as needed acetaminophen (TYLENOL) 325 MG tablet Take 2 (two) tablets (650 mg total) by mouth every 8 (eight) hours as needed (mild pain) . [facility] needed acetaminophen (Tylenol 8 HOUR) 650 mg ER tablet Take 1 tablet (650 mg) by mouth every 8 hours if needed for mild pain (1 - 3). Do not crush, chew, or split. Active take 2 tablets by mo uth every six hours Tylenol 500 mg oral tablet ; 2 tab(s) orally every 6 hours Quantity: 0 Refills: 0 Ordered: 04-Feb-2023 Johana Hernandez Generic Substitution Allowed take 1-2 tablets by mouth every four hours as needed Acetaminophen 325 MG Oral Tablet TAKE 1 TO 2 TABLETS EVERY 4 HOURS NEEDED Quantity: 0 Refills: 0 Ordered: 08-Apr-2021 DO Active take 2 tablets by mo [facility] every four hours as needed for pain acetaminophen (TYLENOL) 325 MG tablet Take 2 (two) tablets (650 mg total) by mouth every 4 (four) hours as needed for pain . 0 Active Acetaminophen 50 0 MG Oral Tablet Quantity: 0 Refills: 0 Ordered: 07-Aug-2019 DO Active [id number] actuat albuter ol 0.09 mg/actuat metered dose inhaler (20 sources) beta2-Adrenergic Agonist Start: 03-13-2025 End: 03-15-2025 Start: 12-31-2023 End: 01-01-2024 take 2.5 mg by inhalation every six hours as needed 2.5 mg, Nebulization, Every 6 hours PRN, shortness of breath, Starting on Wed12/31/23 at 2337 Start: 04-24-2023 albuterol 108 (90 Base) MCG/ACT inhaler 04/24/2023 Active Start: 03-05-2020 Albuterol Sulf ate 1 PUFF inhaler Active 1 - 2 NMA INHALATION EVERY 6 HOURS NEEDED as needed for Sob &/Or Wheezing March 05, 2020 12:00am Start: 02-24-2019 take 2 puff(s) by in halation four times daily as needed for wheezing, then take 2 puff(s) by inhalation four times daily as needed for wheezing albuterol 90 mcg/actuation inhaler Inhale 2 puffs 4 (four) times a day as needed INHALE 2 PUFFS 4 TIMES A DAY NEEDED FOR WHEEZING . 5 02/24/2019 Active Start: 02-24-2019 End: 01-01-2024 take 2 puff(s) by inhalation every six hours as needed 2 puff, Inhalation, Every 6 hours PRN, shortness of breath, Starting on Wed12/31/23 at 2215, SPACER REQUIRED FOR ADMINISTRATION Start: 02-24-2019 take 2 puff(s) by in halation four times daily as needed for wheezing, then take 2 puff(s) by inhalation four times daily as needed for wheezing albuterol 90 mcg/actuation inhaler Inhale 2 puffs 4 (four) times a day as needed INHALE 2 PUFFS 4 TIMES A DAY NEEDED FOR WHEEZING . 5 02/24/2019 Active Start: 12-21-2018 take 2 puff(s) by mo uth four times daily as needed for wheezing Albuterol Sulfate HFA 108 (90 Base) MCG/ACT Inhalation Aerosol Solution INHALE 2 PUFFS BY MOUTH 4 TIMES A DAY NEEDED FOR WHEEZING Quantity: 9 Refills: 0 DO Start : 21-Dec-2018 Active take 2.5 mg by inhal ation every six hours as needed albuterol (PROVENTIL) 2.5 mg /3 mL (0.083 %) nebulizer solution Take 3 mL (2.5 mg total) by nebulization every 6 (six) hours as needed for shortness of breath . Active Albuterol (2.5 M G/3ML) 0.083% inhalation solution Inhale 3 mL Every 6 hours as needed. Active take 2 puff(s) by in halation every six hours as needed Ventolin HFA 108 (90 Base) MCG/ACT Inhalation Aerosol Solution INHALE 2 PUFFS Every 6 hours PRN Quantity: 0 Refills: 0 Ordered: 08-Apr-2021 DO Active albuterol ; 2 pu ff(s) inhaled 4 times a day Quantity: 0 Refills: 0 Ordered: 07-Jul-2019 Rolando Holland Status: Discontinued Generic Substitution Allowed Selenium Sulfide-Aloe Vera 1 % Shampoo (6 sources) Start: 04-07-2017 End: 05-03-2018 selenium sulfide-aloe vera 1 % Sham Apply 10 mL topically nightly. 325 mL 04/07/2017 05/03/2018 Discontinued Start: 04-07-2017 selenium sulfi de-aloe vera 1 % Sham Apply 10 mL topically nightly. 325 mL 11 04/07/2017 Active aluminum hydroxide 40 mg/ml / magnesium hydroxide 40 mg/ml / simethicone 4 mg/ml oral suspension (1 source) Start: 12-31-2023 End: 01-01-2024 take 30 mL by mouth every four hours as needed 30 mL, Oral, Every 4 hours PRN, indigestion, Starting on Wed12/31/23 at 2215 ascorbic acid 60 mg / beta carotene 5000 unt / copper sulfate 40 mg / dl-alpha tocopheryl acetate 30 unt / sodium selenite 0.04 mg / zinc oxide 40 mg oral tablet (3 sources) Vitamin C Start: 08-17-2012 Therems-H TABS TAKE 1 TABLET DAILY. Quantity: 30 Refills: 0 DO Start : 17-Aug-2012 Active atorvastatin 20 mg oral tablet (20 sources) HMG-CoA Reductase Inhibitor Start: 12-31-2023 End: 01-01-2024 take 20 mg by mouth at bedtime 20 mg, Oral, At bedtime, First dose on Wed12/31/23 at 2220 Start: 12-01-2020 End: 03-15-2025 take 1 tablet by mouth at bedtime Atorvastatin 20 mg tablet Active 20 mg PO AT BEDTIME June 05, 2021 12:00am Lipitor 20 MG Or al Tablet Quantity: 0 Refills: 0 Ordered: 29-Jan-2021 DO Active bacitracin zinc 0.5 unt/mg topical ointment (1 source) Start: 09-16-2023 End: 09-16-2023 bacitracin ointment 1 Application benzonatate 100 mg oral capsule (20 sources) Non-narcotic Antitussive Start: 12-31-2023 End: 01-01-2024 take 1 capsule by mouth every eight hours as needed for cough 200 mg, Oral, Every 8 hours PRN, cough, Starting on Wed12/31/23 at 2337, DO NOT CRUSH OR CHEW. Start: 01-12-2023 End: 03-13-2025 take 1 capsule by mouth three times daily as needed for cough benzonatate (Tessalon) 200 mg capsule Indications: Cough in adult Take 1 capsule (200 mg) by mouth 3 times a day as needed for cough for up to 7 days. Do not crush or chew. 21 capsule 0 01/12/2023 01/19/2023 Active benzonatate (Merly salon) 200 MG capsule Take by mouth. Active betamethasone 0.5 mg/ml / clotrimazole 10 mg/ml topical cream (20 sources) Azole Antifungal, Corticosteroid Start: 07-21-2022 End: 04-05-2024 clotrimazole-betamethasone (Lotrisone) cream Apply 1 Application topically twice a day. 07/21/2022 04/05/2024 Discontinued (Therapy completed) Start: 07-21-2022 clotrimazole-b etamethasone (Lotrisone) cream Apply 1 Application topically in the morning and 1 Application in the evening. 0 07/21/2022 Active Start: 06-30-2022 End: 03-13-2025 clotrimazole-betamethasone ( Lotrisone) cream 09/15/2022 03/13/2025 Discontinued Lotrisone 1-0.05 % CREA Apply to axilla BID for rash. Quantity: 0 Refills: 0 Ordered: 05-Nov-2022 DO Active busPIRone hydrochloride 10 mg oral tablet (20 sources) Start: 12-31-2023 End: 01-01-2024 take 10 mg by mouth three times daily 10 mg, Oral, 3 times daily, First dose on Wed12/31/23 at 2220 Start: 03-05-2020 End: 06-05-2021 take 2 tablets by mouth three times daily Buspirone 5 MG tablet Discontinued 10 mg PO THREE TIMES A DAY March 05, 2020 12:00am June 05, 2021 11:31am Start: 03-16-2019 End: 12-01-2020 take 5 mg by mouth once daily 5 mg, Oral, Daily, First dose on Wed03/16/19 at 0915 Start: 02-09-2019 End: 03-15-2025 take 1 tablet by mouth three times daily Buspirone 10 mg tablet Active 10 mg PO THREE TIMES A DAY June 05, 2021 12:00am Start: 02-09-2019 take 1 tablet by [place]on th every eight hours as needed busPIRone HCl - 5 MG Oral Tablet TAKE 1 TABLET BY MOUTH EVERY 8 HOURS NEEDED Quantity: 90 Refills: 0 Ordered: 17-Mar-2019 DO Start : 09-Feb-2019 Active busPIRone 10 mg oral tablet ; tid Quantity: 0 Refills: 0 Ordered: 04-Feb-2023 Linda Hernandezli Generic Substitution Allowed Calcium 600 +D High Potency 600-400 MG-UNIT Oral Tablet (10 sources) Start: 12-29-2021 take 1 tablet by mouth twice daily Calcium 600 +D High Potency 600-400 MG-UNIT Oral Tablet Take 1 tablet twice daily Quantity: 60 Refills: 0 Ordered: 30-Dec-2021 Jeanie Ayala MD Start : 29-Dec-2021 Active Calcium 600 +D High Potency 600-400 MG-UNIT TABS (20 sources) Start: 12-29-2021 Calcium 600 +D High Potency 600-400 MG-UNIT TABS Take 1 tablet twice daily Quantity: 60 Refills: 0 Ordered: 30-Dec-2021 Jeanie Ayala MD Start : 29-Dec-2021 Active calcium carbonate 500 mg chewable tablet (20 sources) Start: 01-01-2024 End: 01-01-2024 take 500 mg by mouth once daily at mealtime 500 mg, Oral, Daily, First dose on 01/01/24 at 0900, Give with Food Start: 12-23-2021 take 1 tablet by napoleon th once daily Calcium Carbonate (Gaby-Gest Antacid) 200 mg calcium (500 mg) tablet,chewable Active 200 mg PO DAILY December 23, 2021 1:00am Start: 06-05-2021 End: 08-26-2021 take 1 tablet by mouth once daily Calcium Carbonate 500 mg calcium (1,250 mg) tablet,chewable Discontinued 500 mg PO DAILY June 05, 2021 12:00am August 26, 2021 10:48am Start: 05-18-2021 End: 05-24-2021 take 1 tablet by mouth once daily calcium carbonate 500 mg (200 mg elemental calcium) oral tablet, chewable ; 1 tab(s) chewed once a day Quantity: 7 Refills: 0 Ordered: 18-May-2021 Lopez Gutierrez Start: 18-May-2021 End: 24-May-2021 Generic Substitution Allowed Comments: Chew tablets before swallowing calcium carbonat e (Tums) 500 MG chewable tablet Chew 500 mg 3 times daily. Active Tums CHEW Take 1 tablet daily Quantity: 0 Refills: 0 Ordered: 04-Mar-2022 DO Active Comment on above: Chew tablets before swallowing calcium carbonate 625 mg / cholecalciferol 125 unt oral tablet (20 sources) Vitamin D Start: 03-14-2025 End: 03-15-2025 take 1 tablet by mouth once daily 1 tablet, Oral, Daily, First dose on Wed03/14/25 at 0900 Start: 08-12-2023 End: 03-13-2025 Calcium + Vitamin D3 600-10 MG-MCG tablet 08/12/2023 03/13/2025 Discontinued Start: 12-29-2021 take 1 tablet by [place]on th in the morning calcium carbonate-vitamin D3 600 mg-10 mcg (400 unit) tablet Take 1 tablet by mouth in the morning and 1 tablet before bedtime. 0 12/29/2021 Active Start: 12-29-2021 take 1 tablet by [place] th twice daily Calcium 600 +D High Potency 600-400 MG-UNIT Oral Tablet Take 1 tablet twice daily Quantity: 60 Refills: 0 Ordered: 30-Dec-2021 Jeanie Ayala MD Start : 29-Dec-2021 Active Start: 03-05-2020 Calcium Carbon ate-Vitamin D3 600 mg-10 mcg (400 unit) tablet Active 1 {tbl} PO TWICE A DAY September 26, 2024 1:00am Start: 03-05-2020 calcium carbon ate-vitamin D3 600-125 mg-unit Tab Take 2,020 Unspecified by mouth . 0 03/05/2020 Active take 1 tablet by [place]on th twice daily Calcium 600+D oral tablet ; 1 tab(s) orally 2 times a day Quantity: 0 Refills: 0 Ordered: 25-Oct-2019 Rosa Shen Generic Substitution Allowed Calcium Carbonate-Vitamin D3 1 EACH tablet (2 sources) Start: 03-05-2020 End: 06-05-2021 Calcium Carbonate-Vitamin D3 1 EACH tablet Discontinued 1 NMA PO DAILY March 05, 2020 12:00am June 05, 2021 11:34am calcium chloride 0.0014 meq/ml / potassium chloride 0.004 meq/ml / sodium chloride 0.103 meq/ml / sodium lactate 0.028 meq/ml injectable solution (2 sources) Start: 03-13-2025 End: 03-13-2025 500 mL, IntraVENous, at 250 mL/hr, Administer over 2 Hours, Once, On Wed03/13/25 at 2100, For 1 dose carboxymethylcellulose sodium 10 mg/ml ophthalmic solution (20 sources) End: 04-05-2024 take 2 drop(s) into the eye(s) every hour carboxymethylcellulose PF 1 % ophthalmic solution Administer 2 drops into both eyes if needed. Q1HR 04/05/2024 Discontinued (Therapy completed) Artificial Tears 1 % Ophthalmic Solution 2 DROPS BOTH EYES Q1HR PRN Quantity: 0 Refills: 0 Ordered: 08-Apr-2021 DO Active Artificial Tears 1 % Ophthalmic Solution Quantity: 0 Refills: 0 Ordered: 29-Jan-2021 DO Active cetirizine hydrochloride 5 mg oral tablet (2 sources) Histamine-1 Receptor Antagonist Start: 03-13-2025 End: 03-15-2025 5 mg, Oral, Daily, First dose on Wed03/13/25 at 1315, Substituted for Loratadine (CLARITIN). 200 ml ciprofloxacin 2 mg/ml injection (9 sources) Quinolone Antimicrobial Start: 06-05-2024 End: 06-05-2024 400 mg, Intravenous, at 200 mL/hr, Every 12 hours scheduled, First dose on Wed06/05/24 at 0015, Indication: Community Acquired Intra-abdominal Infections Start: 12-08-2021 End: 01-07-2022 take 1 tablet by mouth twice daily Ciprofloxacin HCl - 500 MG Oral Tablet Take 1 tablet twice daily Quantity: 14 Refills: 0 Ordered: 08-Dec-2021 Jamie ALEXIS, Jeanie Start : 08-Dec-2021 End : 07-Jan-2022 Complete clonazePAM 1 mg oral tablet (20 sources) Benzodiazepine Start: 06-30-2013 End: 07-30-2013 Klonopin 1 mg oral tablet ; 1 tab(s) orally , As Needed, myoclonic jerk Quantity: 30 Refills: 0 Ordered: 30-Jun-2013 Linnea Swartz Start: 30-Jun-2013 End: 30-Jul-2013 Status: Discontinued Generic Substitution Allowed 24 hr desvenlafaxine succinate 50 mg extended release oral tablet (16 sources) Serotonin and Norepinephrine Reuptake Inhibitor Start: 03-14-2025 End: 03-15-2025 take 50 mg by mouth once daily 50 mg, Oral, Daily, First dose on Wed03/14/25 at 0900, Do not crush, chew, or split. Start: 09-26-2024 take 1 tablet by nap[place]on th once daily Desvenlafaxine Succinate 50 mg tablet extended release 24 hr Active 100 mg PO DAILY September 26, 2024 1:00am take 1 tablet by [place]on th once daily desvenlafaxine (Pristiq) 100 MG 24 hr tablet Take 100 mg by mouth daily. Do not crush, chew, or split. Active diclofenac sodium 0.01 mg/mg topical gel (20 sources) Nonsteroidal Anti-inflammatory Drug Start: 03-04-2022 End: 03-13-2025 Diclofenac Sodium (Voltaren) 1 % gel Apply topically every 12 hours. 03/04/2022 03/13/2025 Discontinued Start: 03-04-2022 End: 06-06-2024 diclofenac sodium 1 % Gel Di clofenac Sodium 1 % External Gel apply sparingly to affected aea twice daily Quantity: 1 Refills: 1 Ordered: 04-Mar-2022 Jeanie Ayala MD Start : 04-Mar-2022 Active 03/04/2022 06/06/2024 Discontinued (Stop Taking at Discharge) Start: 03-04-2022 Diclofenac Sod ium 1 % External Gel apply sparingly to affected aea twice daily Quantity: 1 Refills: 1 Ordered: 04-Mar-2022 Jeanie Ayala MD Start : 04-Mar-2022 Active diclofenac 1% to pical gel ; Apply topically to affected area 2 times a day Quantity: 0 Refills: 0 Ordered: 26-Nov-2022 Aiden Cuellar Generic Substitution Allowed diclofenac 1% to pical gel Quantity: 0 Refills: 0 Ordered: 06-Aug-2022 Luba Jones Generic Substitution Allowed dicyclomine hydrochloride 10 mg oral capsule (16 sources) Anticholinergic Start: 09-22-2018 End: 03-17-2019 take 1 capsule by mouth four times daily dicyclomine (BENTYL) 10 MG capsule Take 10 mg by mouth 4 (four) times a day . 0 09/22/2018 03/17/2019 Discontinued (Therapy completed) divalproex (Depakote ER) 24 hr tablet 250 mg (2 sources) Start: 03-14-2025 End: 03-15-2025 divalproex (Depakote ER) 24 hr tablet 250 mg 250 ml DOBUTamine 2 mg/ml injection (1 source) beta-Adrenergic Agonist Start: 12-26-2018 End: 12-26-2018 DOBUTamine (DOBUTREX) 500 mg/250 mL infusion docusate sodium 100 mg oral capsule (1 source) Start: 06-06-2024 End: 06-06-2024 take 100 mg by mouth twice daily 100 mg, Oral, 2 times daily, First dose on Wed06/06/24 at 1045, Hold for loose stools DO NOT CRUSH OR CHEW. docusate sodium 50 mg / sennosides, residential 8.6 mg oral tablet (20 sources) Start: 06-05-2021 End: 09-26-2024 Sennosides-Docusa te Sodium (Senokot-S) 8.6-50 mg tablet Discontinued 2 NMA PO DAILY December 23, 2021 11:26am September 26, 2024 12:29pm Senna Sodium 8.6 -50 MG TABS TAKE 1 OR 2 TABLETS DAILY TO PREVENT CONSTIPATION. Quantity: 0 Refills: 0 Ordered: 08-Apr-2021 DO Active doxazosin 4 mg oral tablet (20 sources) alpha-Adrenergic Paola Start: 03-16-2019 End: 03-16-2019 take 2 mg by mouth twice daily 2 mg, Oral, 2 times daily, First dose on Wed03/16/19 at 0915 Start: 11-22-2018 End: 12-01-2020 take 0.5 tablet by mouth twice daily doxazosin (CARDURA) 4 MG tablet Take 0.5 (one-half) tablet (2 mg total) by mouth 2 (two) times a day . 30 tablet 11 11/22/2018 12/01/2020 Discontinued (Reorder) Start: 10-25-2018 End: 09-26-2024 take 1 tablet by mouth at bedtime Doxazosin 4 MG tablet Discontinued 4 mg PO AT BEDTIME March 05, 2020 12:00am September 26, 2024 12:28pm Start: 10-12-2018 End: 10-12-2019 take 1 tablet by mouth once daily at breakfast doxazosin (CARDURA XL) 4 MG 24 hr tablet Indications: Essential hypertension Take 1 (one) tablet (4 mg total) by mouth daily with breakfast . 30 tablet 11 10/12/2018 10/12/2019 Active doxycycline hyclate 100 mg oral tablet (6 sources) Tetracycline-class Drug Start: 12-01-2020 End: 01-01-2024 take 1 tablet by mouth twice daily doxycycline hyclate (VIBRA-TABS) 100 MG tablet Take 1 (one) tablet (100 mg total) by mouth 2 (two) times a day . 14 tablet 0 12/01/2020 01/01/2024 Discontinued 0.4 ml enoxaparin sodium 100 mg/ml prefilled syringe (4 sources) Low Molecular Weight Heparin Start: 03-15-2025 End: 03-15-2025 inject 40 mg by subcutaneous injection once daily 40 mg, SubCUTAneous, Daily, First dose on Wed03/15/25 at 0900, Indication of Use: Prophylaxis-DVT/ PE Start: 06-06-2024 End: 06-06-2024 inject 40 mg by subcutaneous injection once daily 40 mg, Subcutaneous, Daily, First dose on Wed06/06/24 at 1045, Administer in abdomen unless otherwise directed by prescriber. Notify physician if patient refuses., Prophylaxis Indication: VTE Prophylaxis Start: 03-16-2019 End: 03-16-2019 inject 40 mg by subcutaneous injection once daily 40 mg, Subcutaneous, Daily, First dose on Wed03/16/19 at 0915 Administer in abdomen unless otherwise directed by prescriber. Notify physician if patient refuses. ergocalciferol 1.25 mg oral capsule (20 sources) Provitamin D2 Compound Start: 06-05-2021 End: 09-26-2024 Ergocalciferol (Vitamin D2) (Vitamin D2) 1,250 mcg (50,000 unit) capsule Discontinued 1250 ug PO EVERY WEEK June 05, 2021 12:00am September 26, 2024 12:28pm Start: 12-05-2020 End: 12-03-2020 take 81722 [IU] by mouth every week 50,000 Units, Oral, Weekly, First dose on [place] 2/18/21 at 0900 End: 01-01-2024 take 1 capsule by mouth once ergocalciferol (ERGOCALCI FEROL) 1,250 mcg (50,000 unit) capsule Take 1 (one) capsule (50,000 Units total) by mouth once a week Every . 0 01/01/2024 Discontinued take 1 capsule by [facility] every week Drisdol ; 5000 unit(s) orally. tke 1 capsule by mouth every week on Quantity: 0 Refills: 0 Ordered: 08-Sep-2021 Johana Hernandez Status: Other Generic Substitution Allowed take 1 capsule by [facility] every week Drisdol ; 5000 unit(s) orally. tke 1 capsule by mouth every week on Quantity: 0 Refills: 0 Ordered: 08-Sep-2021 Johana Hernandez Generic Substitution Allowed 1 ml fentaNYL 0.05 mg/ml injection (1 source) Opioid Agonist Start: 06-04-2024 End: 06-04-2024 50 mcg, Intravenous, Once, On Wed06/04/24 at 2305, For 1 dose flurbiprofen 100 mg oral tablet (20 sources) Nonsteroidal Anti-inflammatory Drug Start: 08-13-2022 End: 09-26-2024 take 1 tablet by mouth three times daily as needed for pain Flurbiprofen 100 mg tablet Discontinued 100 mg PO THREE TIMES A DAY as needed for pain 90 August 13, 2022 12:00am September 26, 2024 12:28pm End: 03-13-2025 take 1 tablet by mouth every eight hours as needed flurbiprofen (Ansaid) 100 MG tablet Take by mouth every 8 hours as needed. 03/13/2025 Discontinued 250 ml glucose 50 mg/ml / sodium chloride 4.5 mg/ml injection (2 sources) Start: 06-05-2024 End: 06-06-2024 take 75 mL intravenously every hour 75 mL/hr, Intravenous, Continuous, Starting on Wed06/05/24 at 1345, For 12 hours 1 ml heparin sodium, porcine 5000 unt/ml injection (1 source) Unfractionated Heparin, Anti-coagulant Start: 12-31-2023 End: 01-01-2024 inject 5000 [IU] by subcutaneous injection every eight hours 5,000 Units, Subcutaneous, Every 8 hours scheduled, First dose on Wed12/31/23 at 2220, Notify physician if patient refuses. hydroCHLOROthiazide 12.5 mg oral tablet (20 sources) Thiazide Diuretic Start: 12-01-2020 End: 01-01-2024 take 1 capsule by mouth once daily hydroCHLOROthiazide (MICROZIDE) 12.5 mg capsule Take 1 (one) capsule (12.5 mg total) by mouth daily for 5 days . 5 capsule 0 12/01/2020 01/01/2024 Discontinued Start: 03-05-2020 End: 09-26-2024 take 1 tablet by mouth once daily Hydrochlorothiazide 12.5 MG tablet Discontinued 12.5 mg PO DAILY March 05, 2020 12:00am September 26, 2024 12:28pm take 1 tablet by napoleon th once daily hydroCHLOROthiazide 25 MG Oral Tablet TAKE 1 TABLET DAILY. Quantity: 0 Refills: 0 Ordered: 25-Nov-2022 DO Active hydroCHLOROthiaz william 12.5 MG Oral Capsule Quantity: 0 Refills: 0 Ordered: 29-Jan-2021 DO Active Icy Hot (20 sources) Icy Hot apply to knee every 12 hours PRN. Quantity: 0 Refills: 0 Ordered: 05-Nov-2022 DO Active iopamidoL (ISOVUE-370) 370 m g iodine /mL (76 %) injection 75 mL (2 sources) Start: 06-04-2024 End: 06-04-2024 75 mL, Intravenous, Once in imaging, contrast, Starting on Wed06/04/24 at 2114, For 1 dose Start: 12-31-2023 End: 12-31-2023 iopamidoL (ISOVUE-370) 370 m g iodine /mL (76 %) injection 75 mL 1 ml ketorolac tromethamine 30 mg/ml injection (8 sources) Nonsteroidal Anti-inflammatory Drug, Cyclooxygenase Inhibitor Start: 06-05-2024 End: 06-06-2024 take 15 mg intravenously every six hours as needed for pain 15 mg, Intravenous, Every 6 hours PRN, mild pain, Starting on Wed06/05/24 at 0211, For 48 hours Start: 05-06-2022 End: 01-01-2024 take 1 tablet by mouth three times daily as needed for pain ketorolac (TORADOL) 10 mg tablet Take 1 (one) tablet (10 mg total) by mouth 3 (three) times a day as needed for pain . 15 tablet 0 05/06/2022 01/01/2024 Discontinued take 1 tablet by napoleon th four times daily ketorolac 10 mg oral tablet ; 1 tab(s) orally 4 times a day Quantity: 0 Refills: 0 Ordered: 06-Aug-2022 Luba Jones Generic Substitution Allowed levETIRAcetam 500 mg oral tablet (20 sources) Anti-epileptic Agent Start: 06-05-2024 End: 06-06-2024 500 mg, Intravenous, Every 12 hours scheduled, First dose on 06/05/24 at 0115, IV Push in undiluted syringe at a rate of 500 mg/min for doses 1500mg or less Start: 03-07-2024 End: 06-06-2024 take 1 tablet by mouth twice daily levETIRAcetam (Keppra) 750 MG tablet Take 1 (one) tablet (750 mg total) by mouth 2 (two) times a day . 60 tablet 03/07/2024 06/06/2024 Discontinued (Stop Taking at Discharge) Start: 08-17-2023 levETIRAcetam (Keppra) 500 MG tablet Take 750 mg by mouth 2 times daily. 08/17/2023 Active Start: 06-05-2021 End: 06-19-2025 take 1 tablet by mouth twice daily Levetiracetam (Keppra) 500 mg tablet Discontinued 500 mg PO TWICE A DAY 60 December 23, 2021 12:32pm August 13, 2022 9:17pm Start: 12-01-2020 End: 12-06-2020 levETIRAcetam (Keppra) 500 M G tablet Start: 12-01-2020 levETIRAcetam (KEPPRA) injection 1,000 mg Start: 03-16-2019 End: 03-16-2019 levETIRAcetam (KEPPRA) table t 1,000 mg Start: 03-16-2019 End: 03-16-2019 take 750 mg by mouth twice daily 750 mg, Oral, 2 times daily, First dose on [place] 03/16/19 at 1100 DO NOT CRUSH OR CHEW. Start: 07-29-2016 End: 03-16-2019 take 1 tablet by mouth twice daily KEPPRA 750 mg tablet Take 750 mg by mouth 2 (two) times a day. 11 07/29/2016 03/16/2019 Discontinued (Stop Taking at Discharge) Start: 04-15-2015 End: 06-05-2021 Levetiracetam 750 MG tablet Discontinued 500 mg PO TWICE A DAY April 15, 2015 12:00am June 05, 2021 11:32am Start: 07-04-2012 End: 12-01-2020 take 1 tablet by mouth twice daily levETIRAcetam (KEPPRA) 1000 MG tablet Take 1 (one) tablet (1,000 mg total) by mouth 2 (two) times a day . 60 tablet 0 03/16/2019 04/15/2019 Active Keppra 500 MG Or al Tablet Quantity: 0 Refills: 0 Ordered: 29-Jan-2021 DO Active levoFLOXacin 500 mg oral tablet (5 sources) Quinolone Antimicrobial Start: 11-23-2022 take 1 tablet by mouth once daily levoFLOXacin 500 MG Oral Tablet TAKE 1 TABLET DAILY DIRECTED. Quantity: 7 Refills: 0 Ordered: 23-Nov-2022 Jamie ALEXIS, Jeanie Start : 23-Nov-2022 Active levonorgestrel 0.391331 mg/hr intrauterine system (20 sources) Progestin, Progestin-containin g Intrauterine Device Start: 09-16-2023 End: 04-19-2024 levonorgestrel (Mirena) 21 mcg/24 hours (8 yrs) 52 mg IUD Start: 09-16-2023 levonorgestrel (Mirena) 21 mcg/24 hours (8 yrs) 52 mg IUD Start: 09-16-2023 levonorgestrel (Mirena) 21 mcg/24 hours (8 yrs) 52 mg IUD Start: 09-16-2023 levonorgestrel (Mirena) 21 mcg/24 hours (8 yrs) 52 mg IUD Start: 09-16-2023 levonorgestrel (Mirena) 21 mcg/24 hours (8 yrs) 52 mg IUD Start: 09-16-2023 levonorgestrel (Mirena) 21 mcg/24 hours (8 yrs) 52 mg IUD Start: 09-16-2023 levonorgestrel (Mirena) 21 mcg/24 hours (8 yrs) 52 mg IUD levothyroxine sodium 0.025 mg oral tablet (20 sources) l-Thyroxine Start: 08-12-2023 End: 03-15-2025 take 25 ug by mouth once daily before breakfast 25 mcg, Oral, Daily before breakfast, First dose on Wed03/14/25 at 0600, Tube feeding (TF) interaction, obtain physician order to manage, recommend holding TF for 30 minutes before and after dose. Start: 06-05-2021 [facility] Levothyroxine 25 mcg capsule Active 25 ug PO DAILY June 05, 2021 12:00am Start: 12-02-2020 End: 12-03-2020 take 125 ug by mouth once daily in the morning 125 mcg, Oral, Every morning, First dose on Wed12/02/20 at 0900 For patients on continuous tube feed: Hold TF from 1 hr before until 1 hr after each dose. TF rate may need adjustment to meet caloric needs. [facility] lev[facility]ine 25 mcg (0.025 mg) oral tablet ; 1 tab(s) orally once a day Quantity: 0 Refills: 0 Ordered: 08-Sep-2021 Johana Hernandez Generic Substitution Allowed L-Thyroxine Sodi um 25 MCG TABS Quantity: 0 Refills: 0 Ordered: 29-Jan-2021 DO Active loperamide hydrochloride 2 mg oral tablet (20 sources) Opioid Agonist End: 03-13-2025 loperamide (Imodium A-D) 2 MG tablet Take by mouth as needed for diarrhea. 03/13/2025 Discontinued End: 04-05-2024 take 1 tablet by mouth three times daily as needed loperamide (Imodium A-D) 2 mg tablet Take 2 tablets (4 mg) by mouth 3 times a day as needed for diarrhea. 04/05/2024 Discontinued (Therapy completed) loratadine 10 mg oral tablet (20 sources) Start: 01-01-2024 End: 01-01-2024 take 10 mg by mouth once daily 10 mg, Oral, Daily, First dose on Wed01/01/24 at 0900 Start: 06-05-2021 take 1 capsule by [facility] at bedtime Loratadine 10 mg capsule Active 10 mg PO AT BEDTIME June 05, 2021 12:00am LORazepam 1 mg oral tablet (20 sources) Benzodiazepine Start: 03-13-2025 End: 03-15-2025 take 2 mg by mouth twice daily 2 mg, Oral, 2 times daily, First dose on Wed03/13/25 at 2100 Start: 01-25-2025 End: 02-24-2025 take 1 tablet by mouth twice daily, then take 8 tablets by mouth in the morning, then take 8 tablets by mouth in the evening LORazepam (Ativan) 2 MG tablet Indications: 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) , Tremor Take 1 tab po QAM and 2 tabs po QPM 90 tablet 2 07/18/2024 07/18/2024 Discontinued Start: 06-05-2024 take 0.5 mg by mouth once 0.5 mg, Oral, Once, On Wed06/05/24 at 1345, For 1 dose Start: 06-05-2024 End: 06-06-2024 0.5 mg, Intravenous, Every 1 2 hours scheduled, First dose on Wed06/05/24 at 0115, VESICANT Start: 12-31-2023 End: 01-01-2024 take 2 mg by mouth twice daily as needed for anxiety 2 mg, Oral, 2 times daily PRN, anxiety, Starting on Wed12/31/23 at 2337 Start: 12-13-2023 LORazepam (Ati van) 1 mg tablet Indications: Anxiety Take 2 tablet twice daily and 1 tab daily PRN 200 tablet 12/13/2023 Active Start: 11-08-2023 LORazepam (Ati van) 1 mg tablet Indications: Anxiety Take 2 tablet twice daily and 1 tab daily PRN 200 tablet 0 11/08/2023 Active Start: 08-01-2023 End: 01-01-2024 LORazepam (ATIVAN) tablet 1 mg Start: 07-24-2023 LORazepam (Ati van) tablet 1 mg Start: 06-07-2023 End: 07-18-2024 LORazepam (Ativan) 1 mg tabl et Indications: Anxiety Take 2 tablet twice daily and 1 tab daily PRN 200 tablet 09/08/2023 11/08/2023 Discontinued (Reorder) Start: 05-04-2023 LORazepam (Ati van) 1 mg tablet Indications: Anxiety Take 2 tablet twice daily and 1 tab daily PRN 150 tablet 0 05/04/2023 Active Start: 09-08-2021 take 1 tablet by napoleon th once as needed Ativan 0.5 mg oral tablet ; 1 tab(s) orally once, As Needed prior to CT scan Quantity: 1 Refills: 0 Ordered: 08-Sep-2021 Bandar David Start: 08-Sep-2021 Status: Other Generic Substitution Allowed Comments: Caution [employer] law prohibits the transfer of this drug to any person other than the person for whom it was prescribed.Do not take this drug if you are .May cause drowsiness or dizziness. Start: 06-05-2021 End: 12-23-2021 take 1 tablet by mouth twice daily Lorazepam 1 mg tablet Discontinued 1 mg PO TWICE A DAY 60 December 17, 2021 3:24pm December 23, 2021 12:31pm Start: 05-18-2021 End: 05-20-2021 take 1 tablet by mouth twice daily for dizziness Ativan 1 mg oral tablet ; 1 tab(s) orally 2 times a day Quantity: 6 Refills: 0 Ordered: 18-May-2021 Lit Ledezma Start: 18-May-2021 End: 20-May-2021 Status: Other Generic Substitution Allowed Comments: Caution federal law prohibits the transfer of this drug to any person other than the person for whom it was prescribed.Do not take this drug if you are .May cause drowsiness or dizziness. Start: 12-03-2020 End: 01-01-2024 LORazepam (ATIVAN) 1 MG tabl et Indications: Seizures (HCC) Take 1.5 (one and a half) tablets (1.5 mg total) by mouth at bedtime for 7 days . 11 tablet 0 12/03/2020 01/01/2024 Discontinued Start: 12-02-2020 End: 12-03-2020 take 2 mg by mouth once daily in the morning 2 mg, Oral, Every morning, First dose on 12/02/20 at 0900 Start: 12-01-2020 End: 12-03-2020 take 1.5 mg by mouth at bedtime 1.5 mg, Oral, At bedti me, First dose on 12/01/20 at 2100 Start: 12-01-2020 End: 01-25-2025 take 2 tablets by mouth once daily in the morning, then take 1 tablet by mouth once daily in the evening Lorazepam 1 mg tablet Discontinued 0 .ROUTE .COMPLEX 0 December 23, 2021 12:29pm October 02, 2024 8:31pm 2 tabs PO QAM and 1 tab PO QPM Start: 12-01-2020 LORazepam (ATI VAN) injection 2 mg Start: 03-17-2019 End: 12-01-2020 take 1 tablet by mouth every eight hours as needed LORazepam (ATIVAN) 0.5 MG tablet Take 0.5 mg by mouth every 8 (eight) hours as needed for anxiety Previous Rx. dose . 0 03/17/2019 12/01/2020 Discontinued Start: 03-16-2019 End: 03-16-2019 LORazepam (ATIVAN) injection 1 mg Start: 03-16-2019 End: 03-16-2019 LORazepam (ATIVAN) 2 mg/mL injection - ADS Override Pull Start: 07-31-2016 End: 03-17-2019 take 1 tablet by mouth four times daily LORazepam (ATIVAN) 1 MG tablet TAKE 1 TABLET (1MG) BY ORAL ROUTE 4 TIMES EVERY DAY 2 07/31/2016 03/17/2019 Discontinued (Dose adjustment) Start: 11-13-2014 End: 05-04-2023 take 2 tablets by mouth twice daily Lorazepam 1 MG tablet Discontinued 2 mg PO TWICE A DAY November 13, 2014 1:00am June 05, 2021 11:45am Start: 07-02-2012 LORazepam 1 MG Oral Tablet TAKE 1 TABLET EVERY 6 TO 8 HOURS NEEDED. Refills: 0 DO Start : 02-Jul-2012 Active take 1 tablet by napoleon th at bedtime for anxiety LORazepam (ATIVAN) 2 MG tablet Take 1 (one) tablet (2 mg total) by mouth at bedtime For anxiety and epilepsy . Active End: 06-06-2024 take 1 tablet by mouth once daily as needed for anxiety LORazepam (ATIVAN) 2 MG tablet Take 1 (one) tablet (2 mg total) by mouth daily as needed (for anxiety or epilepsy) . 06/06/2024 Discontinued (Stop Taking at Discharge) LORazepam 1 MG O ral Tablet Quantity: 0 Refills: 0 Ordered: 29-Jan-2021 DO Active Comment on above: Caution federal law prohibits the transfer of this drug to any person other than the person for whom it was prescribed.Do not take this drug if you are .May cause drowsiness or dizziness. Magnesium (20 sources) Start: 3 take 1 tablet by mouth once daily Magnesium 400 MG Oral Tablet Take 1 tablet daily Quantity: 30 Refills: 11 Ordered: 02-Dec-2022 Jeanie Ayala MD Start : 02-Dec-2022 Active meclizine hydrochloride 12.5 mg oral tablet (20 sources) Antiemetic Start: 4 End: 4 take 25 mg by mouth three times daily as needed for nausea 25 mg, Oral, 3 times daily PRN, nausea, Starting on Wed12/31/23 at 2215 Start: 06-05-2021 End: 03-21-2025 take 1 tablet by mouth every eight hours as needed Meclizine 25 mg tablet Discontinued 25 mg PO Q8H as needed for Vertigo June 05, 2021 11:42am March 21, 2025 9:57am Start: 08-13-2020 End: 03-13-2025 take 1 tablet by mouth three times daily as needed Meclizine 25 MG tablet Discontinued 25 mg PO 3 TIMES DAILY NEEDED as needed for Vertigo August 13, 2020 9:45pm June 05, 2021 11:45am take 1 tablet by napoleon th every eight hours as needed for dizziness meclizine (ANTIVERT) 50 MG tablet Take 1 (one) tablet (50 mg total) by mouth every 8 (eight) hours as needed for dizziness . Active take 2 tablets by mo uth three times daily as needed for dizziness meclizine (ANTIVERT) 25 mg tablet Take 2 (two) tablets (50 mg total) by mouth 3 (three) times a day as needed for dizziness . 0 Active take 2 tablets by mo uth every eight hours as needed meclizine 25 mg oral tablet ; 2 tab(s) orally every 8 hours, As Needed - for dizziness Quantity: 0 Refills: 0 Ordered: 26-Nov-2022 Aiden Cuellar Generic Substitution Allowed Meclizine HCl - 25 MG Oral Tablet Quantity: 0 Refills: 0 Ordered: 29-Jan-2021 DO Active melatonin 5 mg oral tablet (20 sources) Start: 12-31-2023 End: 01-01-2024 Oral, Nightly PRN, insomnia, Starting on Wed12/31/23 at 2215 Start: 06-05-2021 take 2 capsules by out at bedtime as needed Melatonin 5 mg capsule Active 10 mg PO AT BEDTIME as needed for insomnia June 05, 2021 12:00am melatonin 10 MG tablet Take by mouth. Active End: 11-17-2023 take 1 tablet by mouth once daily at bedtime melatonin 5 mg tablet Take 1 tablet (5 mg) by mouth once daily at bedtime. 11/17/2023 Discontinued (Entered in Error) take 1 tablet by [facility] once daily at bedtime Melatonin 3 mg oral tablet ; 1 tab(s) orally once a day (at bedtime) Quantity: 0 Refills: 0 Ordered: 25-Oct-2019 Rosa Shen Status: Other Generic Substitution Allowed Melatonin 3 MG O ral Capsule Refills: 0 DO Active melatonin 3 mg / vitamin b6 10 mg oral tablet (2 sources) Start: 03-05-2020 End: 06-05-2021 take 1 tablet by mouth at bedtime Melatonin-Pyridoxine Hcl (B6) 1 EACH tablet Discontinued 1 NMA PO AT BEDTIME March 05, 2020 12:00am June 05, 2021 11:41am metoclopramide 10 mg oral tablet (2 sources) Dopamine-2 Receptor Antagonist Start: 08-16-2021 End: 01-01-2024 take 1 tablet by mouth three times daily as needed metoclopramide (Reglan) 10 MG tablet Take 1 (one) tablet (10 mg total) by mouth 3 (three) times a day as needed . 15 tablet 0 08/16/2021 01/01/2024 Discontinued 100 ml metroNIDAZOLE 5 mg/ml injection (13 sources) Nitroimidazole Antimicrobial Start: 06-05-2024 End: 06-06-2024 take 500 mg intravenously every eight hours 500 mg, Intravenous, at 200 mL/hr, Every 8 hours, First dose on 06/05/24 at 0200, DO NOT REFRIGERATE, Indication: High Risk or Severity Community or Hosp Acquired Intra-abdominal Infections Start: 12-08-2021 End: 01-07-2022 take 1 tablet by mouth three times daily metroNIDAZOLE 500 MG Oral Tablet TAKE 1 TABLET 3 times daily Quantity: 21 Refills: 0 Ordered: 08-Dec-2021 Jeanie Ayala MD Start : 08-Dec-2021 End : 07-Jan-2022 Complete Start: 07-01-2021 End: 07-17-2021 take 1 tablet by mouth twice daily metroNIDAZOLE 500 MG Oral Tablet TAKE 1 TABLET TWICE DAILY UNTIL FINISHED. Quantity: 14 Refills: 0 Ordered: 01-Jul-2021 Matthew Pérez DO Start : 01-Jul-2021 End : 17-Jul-2021 Complete mirtazapine 15 mg oral tablet (20 sources) Start: 03-16-2019 End: 03-16-2019 take 15 mg by mouth once daily 15 mg, Oral, Nightly, First dose on Wed03/16/19 at 2100 Start: 07-13-2018 take 1 tablet by napoleon th once daily Mirtazapine 30 MG Oral Tablet TAKE 1 TABLET BY MOUTH EVERY DAY AT SUPPER TIME Quantity: 30 Refills: 0 DO Start : 13-Jul-2018 Active Start: 07-21-2016 End: 12-01-2020 take 2 tablets by mouth once daily at bedtime mirtazapine (REMERON) 15 MG tablet TAKE 2 TABLET BY MOUTH EVERY DAY 2 TO 3 HOURS BEFORE BEDTIME 11 07/21/2016 12/01/2020 Discontinued Start: 07-21-2016 take 1 tablet by napoleon th once daily at bedtime mirtazapine (REMERON) 15 MG tablet TAKE 1 TABLET BY MOUTH EVERY DAY 2 TO 3 HOURS BEFORE BEDTIME 07/21/2016 Active Mucinex Allergy TABS (20 sources) take 1 tablet by napoleon th every six hours Mucinex Allergy TABS TAKE 1 TABLET Every 6 hours PRN Quantity: 0 Refills: 0 Ordered: 08-Apr-2021 DO Active Mucinex Allergy TABS Quantity: 0 Refills: 0 Ordered: 29-Jan-2021 DO Active naloxone (NARCAN) injection 0.1 mg (1 source) Start: 06-05-2024 End: 06-06-2024 naloxone (NARCAN) injection 0.1 mg nitrofurantoin, macrocrystals 100 mg oral capsule (6 sources) Nitrofuran Antibacterial Start: 01-07-2023 End: 01-13-2023 take 1 capsule by mouth twice daily at mealtime Macrodantin 100 mg oral capsule ; 1 cap(s) orally 2 times a day Quantity: 14 Refills: 0 Ordered: 07-Jan-2023 Abhi Richards Start: 07-Jan-2023 End: 13-Jan-2023 Generic Substitution Allowed Comments: Finish all this medication unless otherwise directed by prescriber.May discolor urine or feces.Take with food or milk. Comment on above: Finish all this medi cation unless otherwise directed by prescriber.May discolor urine or feces.Take with food or milk. nitroglycerin 0.4 mg sublingual tablet (1 source) Nitrate Vasodilator Start: 12-31-2023 End: 12-31-2023 nitroGLYCERIN (NITROSTAT) SL tablet 0.4 mg Start: 12-31-2023 End: 12-31-2023 nitroGLYCERIN (NITROSTAT) SL tablet 0.4 mg omeprazole 20 mg delayed release oral capsule (20 sources) Proton Pump Inhibitor Start: 03-04-2022 End: 09-26-2024 take 1 capsule by mouth once daily Omeprazole 20 mg capsule,delayed release(DR/EC) Discontinued 20 mg PO DAILY August 13, 2022 12:00am September 26, 2024 12:28pm ondansetron (ZOFRAN-ODT) disintegrating tablet 4 mg (1 source) Start: 12-31-2023 End: 01-01-2024 take 1 tablet by mouth every six hours as needed for nausea and vomiting ondansetron (ZOFRAN-ODT) disintegrating tablet 4 mg ondansetron ODT (Zofran-ODT) disintegrating tablet 4 mg (2 sources) Start: 03-13-2025 End: 03-15-2025 take 1 tablet by mouth every eight hours as needed for nausea and vomiting ondansetron ODT (Zofran-ODT) disintegrating tablet 4 mg pantoprazole 40 mg delayed release oral tablet (20 sources) Proton Pump Inhibitor Start: 01-01-2024 End: 01-01-2024 take 40 mg by mouth once daily 40 mg, Oral, Daily, First dose on Wed01/01/24 at 0900, DO NOT CRUSH OR CHEW. Start: 05-19-2018 End: 05-19-2019 take 1 tablet by mouth once daily pantoprazole (PROTONIX) 40 MG tablet Take 1 (one) tablet (40 mg total) by mouth daily. 30 tablet 05/19/2018 03/16/2019 Discontinued (Stop Taking at Discharge) Start: 09-04-2016 End: 09-04-2017 take 1 tablet by mouth once daily pantoprazole (PROTONIX) 40 MG tablet Take 1 tablet (40 mg total) by mouth daily. 30 tablet 09/04/2016 09/04/2017 Active perflutren lipid microspheres (DEFINITY) 0.143 mg/mL solution 0-10 mL of mixture (1 source) Start: 12-31-2023 End: 01-01-2024 perflutren lipid microspheres (DEFINITY) 0.143 mg/mL solution 0-10 mL of mixture polyethylene glycol 3350 43721 mg powder for oral solution (2 sources) Osmotic Laxative Start: 03-13-2025 End: 03-15-2025 17 g, Oral, Daily, First dose on Wed03/13/25 at 1315 polyethylene glycol 400 10 mg/ml ophthalmic solution (5 sources) Start: 12-31-2023 End: 01-01-2024 1 drop, Both Eyes, As needed, dry eyes, Starting on Wed12/31/23 at 2337 take 1 drop(s) into the eye(s) once daily artificial tears, polyethylene glycol 400, 1 % Drop Administer 1 (one) drop to both eyes nightly . Active End: 06-06-2024 take 1 drop(s) into the eye(s) every hour as needed artificial tears, polyethylene glycol 400, 1 % Drop Administer 1 (one) drop to both eyes every hour as needed (dry eyes) . 06/06/2024 Discontinued (Stop Taking at Discharge) potassium chloride 20 meq powder for oral solution (20 sources) Start: 03-13-2025 End: 03-15-2025 take 1 [oz_av] by mouth twice daily 10 mEq, Oral, 2 times daily, First dose (after last modification) on Wed03/13/25 at 2100, Dissolve each packet in 4 ounces of water = 5 mEq per 1 oz fluid. Start: 08-12-2023 potassium chlo ride ER (Micro-K) 10 MEQ ER capsule Take 10 mEq by mouth 2 times daily. 08/12/2023 Active Start: 12-05-2021 End: 12-11-2021 take 1 tablet by mouth once daily at mealtime K-Tab 20 mEq oral tablet, extended release ; 1 tab(s) orally once a day Quantity: 7 Refills: 0 Ordered: 05-Dec-2021 Lopez Gutierrez Start: 05-Dec-2021 End: 11-Dec-2021 Status: Other Generic Substitution Allowed Comments: It is very important that you take or use this exactly as directed. Do not skip doses or discontinue unless directed by your doctor.Medication should be taken with plenty of water.Take with food or milk. Start: 06-05-2021 End: 08-26-2021 take 2 tablets by mouth once daily Potassium Chloride 20 mEq tablet extended release Discontinued 40 meq PO DAILY June 05, 2021 12:00am August 26, 2021 10:47am Start: 05-18-2021 End: 05-24-2021 take 1 tablet by mouth once daily at mealtime K-Tab 20 mEq oral tablet, extended release ; 1 tab(s) orally once a day Quantity: 7 Refills: 0 Ordered: 18-May-2021 Lopez Gutierrez Start: 18-May-2021 End: 24-May-2021 Status: Other Generic Substitution Allowed Comments: It is very important that you take or use this exactly as directed. Do not skip doses or discontinue unless directed by your doctor.Medication should be taken with plenty of water.Take with food or milk. Start: 12-01-2020 potassium chlo ride SA (K-DUR,KLOR-CON) CR tablet 40 mEq Start: 03-05-2020 End: 01-01-2024 take 1 tablet by mouth twice daily Potassium Chloride 10 MEQ tablet extended release Discontinued 10 meq PO TWICE A DAY March 05, 2020 12:00am June 05, 2021 11:38am Start: 03-16-2019 End: 03-16-2019 20 mEq, Oral, Daily, First d ose on [place] 03/16/19 at 1100 Dilute with 4 oz. of water or juice. Start: 09-01-2018 take 2 capsules by m outh twice daily Potassium Chloride 10 mEq capsule, extended release Active 20 meq PO TWICE A DAY August 26, 2021 1:00am Start: 09-01-2018 End: 12-01-2020 take 1 capsule by mouth twice daily potassium chloride (MICRO-K) 10 MEQ CR capsule TAKE 1 CAPSULE BY MOUTH TWICE A DAY 60 capsule 3 09/01/2018 12/25/2018 Discontinued (Reorder (Suppress CancelRx Message to Pharmacy)) Start: 09-01-2018 take 3 capsules by m outh once daily Potassium Chloride ER 10 MEQ Oral Capsule Extended Release TAKE 3 CAPSULES DAILY Quantity: 270 Refills: 3 Ordered: 12-Aug-2021 Jamie ALEXIS, Jeanie Start : 01-Sep-2018 Active Start: 09-01-2018 take 2 capsules by m outh once daily Potassium Chloride ER 10 MEQ Oral Capsule Extended Release TAKE 2 CAPSULE Daily Quantity: 0 Refills: 3 Ordered: 01-Sep-2018 DO Start : 01-Sep-2018 Active take 1 tablet by napoleon th twice daily potassium chloride SA (K-DUR,KLOR-CON) 20 MEQ tablet Take 1 (one) tablet (20 mEq total) by mouth 2 (two) times a day . Active End: 12-03-2020 take 1 tablet by mouth twice daily, then take 1 tablet by mouth potassium chloride SA (K-DUR,KLOR-CON) 10 MEQ tablet Take 10 mEq by mouth 2 (two) times a day . 0 12/03/2020 Discontinued (Stop Taking at Discharge) Comment on above: It is very important that you take or use this exactly as directed. Do not skip doses or discontinue unless directed by your doctor.Medication should be taken with plenty of water.Take with food or milk. potassium gluconate 2.5 meq oral tablet (6 sources) End: 02-21-20 18 take 1 tablet by mouth once daily potassium gluconate 595 mg (99 mg) Tab Take 595 mg by mouth daily. 02/20/2018 Discontinued potassium phosphate 155 mg / sodium phosphate, dibasic 852 mg / sodium phosphate, monobasic 130 mg oral tablet (1 source) Start: 01-01-20 End: 01-01-20 sod phos di, mono-K phos mono (K-PHOS NEUTRAL) tablet 500 mg potassium, sodium phosphates (PHOS-NAK) 280-160-250 mg packet 1 packet (1 source) Start: 12-31-19 End: 01-01-20 potassium, sodium phosphates (PHOS-NAK) 280-160-250 mg packet 1 packet predniSONE 10 mg oral tablet (3 sources) Corticosteroid End: 02-21-20 take 1 tablet by mouth once daily predniSONE (DELTASONE) 10 MG tablet Take 10 mg by mouth daily. 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 240 tablet 3 02/19/2025 06/19/2025 Active Start: 12-31-2023 End: 01-01-2024 take 100 mg by mouth twice daily 100 mg, Oral, 2 times daily, First dose on Wed12/31/23 at 2340 Start: 03-05-2020 End: 09-26-2024 take 1 tablet by mouth twice daily Primidone 50 mg tablet Discontinued 100 mg PO TWICE A DAY 120 August 13, 2022 9:08pm September 26, 2024 12:29pm take 2 tablets by mo ut twice daily primidone (Mysoline) 50 mg tablet Take 2 tablets (100 mg) by mouth 2 times a day. Active take 4 tablets by mo ut every twelve hours primidone (MYSOLINE) 50 MG tablet Take 4 (four) tablets (200 mg total) by mouth every 12 (twelve) hours . Active regadenoson (Lexiscan) injection 0.4 mg (1 source) Start: 10-05-2023 End: 10-05-2023 regadenoson (Lexiscan) injection 0.4 mg sennosides, residential 8.6 mg oral tablet (2 sources) Start: 12-31-2023 End: 01-01-2024 take 1 tablet by mouth twice daily as needed for constipation 8.6 mg (1 tablet), Oral, 2 times daily PRN, constipation, Starting on Wed12/31/23 at 2215 Start: 03-16-2019 End: 03-16-2019 take 1 tablet by mouth twice daily as needed for constipation 8.6 mg (1 tablet), Oral, 2 times daily PRN, constipation, Starting [facility] 03/16/19 at 0822 sertraline 50 mg oral tablet (20 sources) Serotonin Reuptake Inhibitor Start: 12-31-2023 End: 01-01-2024 take 100 mg by mouth twice daily 100 mg, Oral, 2 times daily, First dose on Wed12/31/23 at 2340 Start: 02-25-2023 End: 03-13-2025 take 1 tablet by mouth in the morning sertraline (Zoloft) 100 MG tablet Take 100 mg by mouth in the morning and 100 mg in the evening. 02/25/2023 03/13/2025 Discontinued Start: 06-05-2021 End: 09-26-2024 Sertraline 100 mg tablet Discontinued 125 mg PO AT BEDTIME June 05, 2021 11:40am September 26, 2024 12:29pm Start: 12-01-2020 End: 12-03-2020 take 100 mg by mouth once daily 100 mg, Oral, Nightly, First dose on 12/01/20 at 2100 Start: 12-01-2020 End: 12-03-2020 take 25 mg by mouth once daily 25 mg, Oral, Nightly, F irst dose on 12/01/20 at 2100 Start: 12-01-2020 End: 12-03-2020 take 5 tablets by mouth at bedtime sertraline (ZOLOFT) 25 MG tablet Take 5 (five) tablets (125 mg total) by mouth at bedtime for 5 days . 25 tablet 0 12/01/2020 12/03/2020 Discontinued (Stop Taking at Discharge) Start: 03-05-2020 End: 06-05-2021 Sertraline 100 MG tablet Discontinued 175 mg PO AT BEDTIME March 05, 2020 12:00am June 05, 2021 11:45am End: 01-01-2024 take 1 tablet by mouth once daily sertraline (ZOLOFT) 25 MG tablet Take 1 (one) tablet (25 mg total) by mouth nightly Take with 100 mg tablet for total of 125 mg daily . 0 01/01/2024 Discontinued take 1 capsule by [facility] once daily sertraline 150 mg oral capsule ; 1 cap(s) orally once a day Quantity: 0 Refills: 0 Ordered: 21-Jan-2022 Heidy Key Generic Substitution Allowed End: 02-25-2023 take 1 tablet by mouth once daily Sertraline HCl - 100 MG Oral Tablet TAKE 1 TABLET DAILY. Quantity: 30 Refills: 5 Ordered: 08-Apr-2021 DO Active End: 02-25-2023 take 1 tablet by mouth once daily Sertraline HCl - 50 MG Oral Tablet TAKE 1 TABLET DAILY. Quantity: 90 Refills: 3 Ordered: 07-Jan-2022 Jamie ALEXIS, Jeanie Active TO TAKE WITH 100 MG FOR TOTAL OF 150 MG sertraline 50 mg oral tablet ; 125 milligram(s) orally once a day Quantity: 0 Refills: 0 Ordered: 25-Oct-2019 Rosa Shen Status: Other Generic Substitution Allowed Sertraline HCl - 100 MG Oral Tablet Quantity: 0 Refills: 0 Ordered: 29-Jan-2021 DO Active Sertraline HCl - 25 MG Oral Tablet Quantity: 0 Refills: 0 Ordered: 29-Jan-2021 DO Active simethicone 80 mg chewable tablet (2 sources) Start: 03-05-2020 End: 06-05-2021 take 1 tablet by mouth every twelve hours as needed Simethicone 80 MG tablet Discontinued 80 mg PO Q12H as needed for Gas March 05, 2020 12:00am June 05, 2021 11:41am 5 ml sodium chloride 9 mg/ml injection (9 sources) Start: 03-13-2025 End: 03-15-2025 take 5-40 mL intravenously every twelve hours 5-40 mL, IntraVENous, Every 12 hours, First dose on Wed03/13/25 at 1230, For Line Patency: Peripheral IV = 5 mL; Midline or Central Line = 10 mL/lumen. If following IV push medication, administer flush at same rate as the IV push. Flush volume is determined by type of infusion therapy being given. For non-viscous solutions use: Peripheral IV = 5 mL Midline or Central Line = 10 mL/lumen For viscous solutions (i.e. blood components, parenteral nutrition, contrast media, or after obtaining blood sample) use: Peripheral IV = 10 mL Midline or Central Line = 20 mL/lumen Start: 03-13-2025 End: 03-15-2025 take 100 mL intravenously every hour as needed, then take 20 mL intravenously every hour as needed 5-250 mL/hr, IntraVENous, PRN, if patient receiving piggyback infusions and maintenance fluids are not ordered OR KVO fluids to protect IV site / prevent frequent line interruptions / long duration, Starting on Wed03/13/25 at 1218, For piggyback infusion, administer at same rate as piggyback for a total of 25 mL. Enter 25 mL into dose field and piggyback rate into rate field of order. If piggyback is infusing at a rate less than 100 mL/hr, enter 25 mL into dose field and 100 mL/hr into rate field of order. For KVO fluids, enter rate of 20 mL/hr or less into rate field of order. Start: 03-13-2025 End: 03-15-2025 5-40 mL, IntraVENous, PRN, l ine care, After every IV line use, Starting on Wed03/13/25 at 1218, For Line Patency: Peripheral IV = 5 mL; Midline or Central Line = 10 mL/lumen. If following IV push medication, administer flush at same rate as the IV push. Flush volume is determined by type of infusion therapy being given. For non-viscous solutions use: Peripheral IV = 5 mL Midline or Central Line = 10 mL/lumen For viscous solutions (i.e. blood components, parenteral nutrition, contrast media, or after obtaining blood sample) use: Peripheral IV = 10 mL Midline or Central Line = 20 mL/lumen Start: 06-05-2024 End: 06-06-2024 sodium chloride (PF) (NS) fl ush 5 mL Start: 06-04-2024 End: 06-04-2024 500 mL, Intravenous, at 967. 7 mL/hr, Once, On 06/04/24 at 2305, For 1 dose Start: 12-02-2020 End: 12-03-2020 sodium chloride 0.9% (NS) Sodium Phosphates (FLEET ZENIA MA RE) (17 sources) End: 03-13-2025 Sodium Phosphates (FLEET ZENIA MA RE) Insert into the rectum as needed. 03/13/2025 Discontinued Sodium Phosphate s (FLEET ENEMA RE) Insert into the rectum as needed. Active sulfamethoxazole 800 mg / trimethoprim 160 mg oral tablet (2 sources) Dihydrofolate Reductase Inhibitor Antibacterial, Sulfonamide Antimicrobial Start: 09-19-2020 End: 06-05-2021 Sulfamethoxazole-Trimethopri m 1 TABLET tablet Discontinued 1 {tbl} PO TWICE A DAY September 19, 2020 1:00am June 05, 2021 11:41am Tc-99m tetrofosmin (Myoview) injection 12 millicurie (1 source) Start: 10-05-2023 End: 10-05-2023 Tc-99m tetrofosmin (Myoview) injection 12 millicurie Tc-99m tetrofosmin (Myoview) injection 36 millicurie (1 source) Start: 10-05-2023 End: 10-05-2023 Tc-99m tetrofosmin (Myoview) injection 36 millicurie technetium (Tc-99m) tetrofosmin (Tc-MYOVIEW) injection 8-25 millicurie (1 source) Start: 12-26-2018 End: 12-26-2018 technetium (Tc-99m) tetrofosmin (Tc-MYOVIEW) injection 8-25 millicurie Therems-H Oral Tablet (2 sources) Start: 08-17-2012 take 1 tablet by mouth once daily Therems-H Oral Tablet TAKE 1 TABLET DAILY. Quantity: 30 Refills: 0 Start : 17-Aug-2012 Active tiZANidine 2 mg oral tablet (6 sources) Central alpha-2 Adrenergic Agonist Start: 12-30-2016 End: 02-20-2018 take 1 tablet by mouth every eight hours as needed tiZANidine (ZANAFLEX) 2 MG tablet Take 2 mg by mouth every 8 (eight) hours as needed. 12/30/2016 02/20/2018 Discontinued 24 hr topiramate 100 mg extended release oral capsule (20 sources) Anti-epileptic Agent Start: 05-02-2018 End: 12-01-2020 take 1 capsule by mouth once daily TROKENDI XR 100 mg Cp24 CAPSULE Take 1 capsule by mouth daily. 2 05/02/2018 12/01/2020 Discontinued Start: 04-15-2015 End: 06-05-2021 take 1 tablet by mouth twice daily Topiramate (Topamax) 25 MG tablet Discontinued 25 mg PO TWICE A DAY April 15, 2015 12:00am June 05, 2021 11:41am Unspecified Medication (20 sources) Start: 12-08-2021 Unspecified Medication USE DIRECTED Quantity: 1 Refills: 0 Ordered: 09-Dec-2021 Jeanie Ayala MD Start : 08-Dec-2021 Active lift chair valproate (DEPACON) 500 mg in sodium chloride 0.9% (NS) 100 mL IVPB (1 source) Start: 06-05-2024 End: 06-06-2024 500 mg, Intravenous, at 100 mL/hr, Every 12 hours scheduled, First dose (after last modification) on Wed06/05/24 at 0600, CATEGORY B HAZARDOUS DRUG use safe handling precautions. Use reference link to view PPE guidelines. EMERGENCY HAZ DRUG use professional judgement when deviating from standard handling precautions., Indication: Seizures / Psych. Issues 24 hr venlafaxine 37.5 mg extended release oral tablet (20 sources) Serotonin and Norepinephrine Reuptake Inhibitor Start: 06-14-2017 End: 06-05-2021 take 1 tablet by mouth once daily Venlafaxine 37.5 MG tablet extended release 24hr Discontinued 37.5 mg PO DAILY June 14, 2017 12:00am June 05, 2021 11:41am Start: 08-03-2016 End: 12-01-2020 take 1 tablet by mouth once daily in the morning venlafaxine (EFFEXOR) 37.5 MG tablet Take 37.5 mg by mouth every morning. 0 08/03/2016 12/01/2020 Discontinued Problems Active Problems Problem Classification Problem Date Documented Da te Episodic/Chronic Acute and unspecified renal failure (20 sources) Renal failure syndrome; Translations: [Renal failure, unspecified] Chronic Comment on above: Based on patient's d escription. Now resolved.; Adjustment disorders (4 sources) Adjustment disorder; Translations: [Unspecified adjustment reaction] Onset: 3 01-01-2023 Chronic Allergic reactions (1 source) Allergy status to penicillin; Translations: [Allergy status to penicillin] Onset: 3 Episodic Anxiety disorders (20 sources) Anxiety; Translations: [Anxiety state, unspecified] Onset: 7 04-07-2017 Chronic Appendicitis and other appendiceal conditions (6 sources) Acute appendicitis; Translations: [Unspecified acute appendicitis] Onset: 4 06-04-2024 Episodic Attention-deficit, conduct, and disruptive behavior disorders (1 source) Manipulative behavior; Translations: [Other symptoms and signs involving appearance and behavior] 04-04-2025 Episodic Chronic kidney disease (20 sources) Chronic kidney disease stage 3; Translations: [Chronic kidney disease, stage 3 (moderate)] Onset: 1 09-04-2016 Chronic Chronic kidney disease (9 sources) Chronic kidney disease; Translations: [Chronic kidney disease, stage 3a (CMS/HCC)] Onset: 3 12-02-2022 Comment on above: STAGE 3B CHRONIC KID VONDA DISEASE - (N18.32) Coagulation and hemorrhagic disorders (20 sources) Platelet count below reference range; Translations: [Thrombocytopenia, unspecified] Onset: 1 12-01-2020 Chronic Conditions associated with dizziness or vertigo (20 sources) Dizziness; Translations: [Dizziness and giddiness] Onset: 3 Resolved: 3 05-09-2022 Episodic Comment on above: VERTIGO Congestive heart failure; nonhypertensive (20 sources) Congestive heart failure; Translations: [Unspecified systolic (congestive) heart failure] Onset: 3 08-11-2023 Chronic Coronary atherosclerosis and other heart disease (1 source) Old myocardial infarction; Translations: [Old myocardial infarction] Onset: 3 Chronic Disorders of lipid metabolism (20 sources) Hypercholesterolemia; Translations: [Pure hypercholesterolemia] Onset: 3 01-11-2023 Chronic Endometriosis (10 sources) Endometriosis (clinical); Translations: [Endometriosis, unspecified] Onset: 3 11-10-2023 Chronic Epilepsy; convulsions (20 sources) Generalized epilepsy; Translations: [Epilepsy, unspecified, without mention of intractable epilepsy] Onset: 2 11-26-2022 Chronic Epilepsy; convulsions (20 sources) Seizure; Translations: [Other convulsions] Onset: 4 09-04-2016 Episodic Comment on above: SEIZURE Esophageal disorders (20 sources) Gastroesophageal reflux disease; Translations: [Gastro-esophageal reflux disease without esophagitis] Onset: 6 09-04-2016 Chronic Essential hypertension (20 sources) Hypertensive disorder; Translations: [Essential hypertension] Onset: 1 09-04-2016 Chronic External cause codes: Fall (13 sources) Fall; Translations: [Fall] Onset: 1 12-01-2020 Comment on above: FALL Gastrointestinal hemorrhage (2 sources) Hematemesis; Translations: [Hematemesis] 10-04-2024 Episodic Headache; including migraine (20 sources) Migraine; Translations: [Migraine, unspecified, not intractable, without status migrainosus] Onset: 3 Chronic Headache; including migraine (2 sources) Headache; Translations: [Headache] 10-22-2024 Episodic Headache; including migraine (2 sources) Headache; including migraine; Translations: [Headache, unspecified] Onset: 3 Heart valve disorders (1 source) Nonrheumatic mitral (valve) prolapse; Translations: [Nonrheumatic mitral (valve) prolapse] Onset: 3 Chronic Hypertension with complications and secondary hypertension (3 sources) Hypertensive heart and chronic kidney disease with heart failure and stage 1 through stage 4 chronic kidney disease, or unspecified chronic kidney disease; Translations: [Hypertensive heart disease with heart failure] Onset: 2 Chronic Menstrual disorders (20 sources) Irregular periods; Translations: [Irregular menstruation, unspecified] Onset: 7 Resolved: 3 02-25-2023 Chronic Mood disorders (20 sources) Mixed anxiety and depressive disorder; Translations: [Other specified anxiety disorders] Onset: 7 04-07-2017 Chronic Osteoarthritis (20 sources) Unilateral primary osteoarthritis, left knee; Translations: [Osteoarthritis of left knee joint] Onset: 3 10-25-2023 Chronic Other aftercare (20 sources) Patient encounter status; Translations: [Long-term (current) use of other medications] 08-16-2023 Episodic Other aftercare (1 source) Other custodial (current) drug therapy; Translations: [Other custodial (current) drug therapy] Onset: 3 Episodic Other aftercare (1 source) Surgical follow-up; Translations: [Encounter for follow-up examination after completed treatment for conditions other than malignant neoplasm] 10-29-2023 Episodic Other aftercare (2 sources) H/O: high risk medication; 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] 08-26-2021 Episodic Other circulatory disease (20 sources) H/O: heart failure; Translations: [Personal history of other diseases of circulatory system] Episodic Other circulatory disease (20 sources) H/O: hypertension; Translations: [Personal history of other diseases of circulatory system] Episodic Other connective tissue disease (2 sources) Pain in left arm; Translations: [Pain in left arm] Onset: 3 Episodic Other connective tissue disease (2 sources) Pain of left lower leg; Translations: [Pain in left lower leg] 10-11-2024 Episodic Other diseases of kidney and ureters (1 source) Renal impairment; Translations: [Disorder of kidney and ureter, unspecified] 08-13-2023 Episodic Other ear and sense organ disorders (1 source) Impacted cerumen in right ear; Translations: [Impacted cerumen, right ear] 02-25-2023 Episodic Other endocrine disorders (7 sources) Menarche; Translations: [History of Menarche] Chronic Other female genital disorders (20 sources) Vaginal bleeding; Translations: [Abnormal uterine and vaginal bleeding, unspecified] Onset: 4 07-13-2023 Chronic Other gastrointestinal disorders (20 sources) Constipation; Translations: [Constipation, unspecified] Onset: 3 Resolved: 3 01-11-2023 Episodic Other gastrointestinal disorders (2 sources) Constipation, unspecified; Translations: [Constipation, unspecified] Onset: 4 Episodic Other hematologic conditions (20 sources) H/O: anemia; Translations: [Personal history of diseases of blood and blood-forming organs] Episodic Comment on above: now resolved; Other hereditary and degenerative nervous system conditions (7 sources) Myoclonus; Translations: [Myoclonus] Onset: 9 03-05-2024 Chronic Other hereditary and degenerative nervous system conditions (2 sources) Other specified forms of tremor; Translations: [Other specified forms of tremor] Onset: 4 Chronic Other hereditary and degenerative nervous system conditions (1 source) Myoclonus; Translations: [Myoclonus] Onset: 4 Chronic Other hereditary and degenerative nervous system conditions (2 sources) Essential tremor; Translations: [Essential tremor] Onset: 4 Chronic Other inflammatory condition of skin (20 sources) Scalp psoriasis; Translations: [Psoriasis, unspecified] Onset: 7 04-07-2017 Chronic Other inflammatory condition of skin (1 source) Psoriasis; Translations: [Psoriasis, unspecified] 04-04-2024 Chronic Other inflammatory condition of skin (4 sources) Psoriasis, unspecified; Translations: [Psoriasis, unspecified] Onset: 7 Chronic Other inflammatory condition of skin (2 sources) Seborrheic dermatitis; Translations: [Seborrheic dermatitis, unspecified] 05-31-2024 Episodic Other injuries and conditions due to external causes (20 sources) History of fall; Translations: [History of fall] Episodic Other liver diseases (20 sources) Steatosis of liver; Translations: [Other chronic nonalcoholic liver disease] Onset: 3 01-11-2023 Chronic Other liver diseases (2 sources) Fatty (change of) liver, not elsewhere classified; Translations: [Fatty (change of) liver, not elsewhere classified] Onset: 3 Chronic Other liver diseases (20 sources) Acute and subacute necrosis of liver; Translations: [Hepatic Failure] Episodic Comment on above: Based on patient's d escription. Now resolved.; Other lower respiratory disease (1 source) Chest wall pain; Translations: [Painful respiration] 05-14-2021 Episodic Other lower respiratory disease (2 sources) Nodule of lung; Translations: [Solitary pulmonary nodule] 10-04-2024 Episodic Other nervous system disorders (20 sources) Tremor; Translations: [Abnormal involuntary movements] Onset: 3 05-15-2021 Episodic Comment on above: TREMORS Other nervous system disorders (20 sources) Abnormal gait; Translations: [Abnormality of gait] Onset: 2 Resolved: 3 01-11-2023 Episodic Other nervous system disorders (12 sources) Decreased coordination; Translations: [Lack of coordination] Episodic Other nervous system disorders (1 source) Other lack of coordination; Translations: [Other lack of coordination] Onset: 3 Episodic Other nervous system disorders (1 source) Other abnormalities of gait and mobility; Translations: [Other abnormalities of gait and mobility] Onset: 3 Episodic Other nervous system disorders (2 sources) H/O: epilepsy; Translations: [Personal history of other diseases of the nervous system and sense organs] 06-04-2024 Episodic Other nervous system disorders (2 sources) Chronic tremor; Translations: [Tremor, unspecified] 03-21-2025 Episodic Other non-traumatic joint disorders (20 sources) Pain in unspecified knee; Translations: [Knee pain] Onset: 3 Resolved: 3 01-11-2023 Episodic Other non-traumatic joint disorders (1 source) Chronic pain of right upper limb; Translations: [Pain in right shoulder] 01-03-2024 Episodic Other nutritional; endocrine; and metabolic disorders (20 sources) Obesity, unspecified; Translations: [Obese class I] Onset: 8 02-20-2018 Chronic Other nutritional; endocrine; and metabolic disorders (20 sources) Morbid obesity; Translations: [Morbid obesity] Chronic Other nutritional; endocrine; and metabolic disorders (20 sources) Body mass index 30+ - obesity; Translations: [Body Mass Index 38.0-38.9, adult] Onset: 4 10-25-2023 Chronic Other nutritional; endocrine; and metabolic disorders (20 sources) Hypocalcemia; Translations: [Hypocalcemia] Onset: 4 05-18-2021 Chronic Other nutritional; endocrine; and metabolic disorders (20 sources) Body mass index 40+ - severely obese; Translations: [Morbid obesity] Onset: 3 01-11-2023 Chronic Other nutritional; endocrine; and metabolic disorders (20 sources) Hypomagnesemia; Translations: [Disorders of magnesium metabolism] Onset: 3 11-26-2022 Chronic Other nutritional; endocrine; and metabolic disorders (20 sources) Metabolic syndrome X; Translations: [Metabolic syndrome] Onset: 7 02-25-2023 Chronic Other nutritional; endocrine; and metabolic disorders (3 sources) Body mass index (BMI) 40.0-44.9, adult; Translations: [Body mass index [BMI] 40.0-44.9, adult] Onset: 3 Chronic Other nutritional; endocrine; and metabolic disorders (3 sources) Morbid (severe) obesity due to excess calories; Translations: [Morbid (severe) obesity due to excess calories] Onset: 3 Chronic Other nutritional; endocrine; and metabolic disorders (1 source) Body mass index (BMI) 39.0-39.9, adult; Translations: [Body mass index [BMI] 39.0-39.9, adult] Onset: 3 Chronic Other nutritional; endocrine; and metabolic disorders (2 sources) Hypomagnesemia; Translations: [Hypomagnesemia] Onset: 3 Chronic Other and delivery including normal (20 sources) History of past delivery; Translations: [Personal history of other genital system and obstetric disorders] Episodic Comment on above: 09/15/1997; 34 WEEKS ; FEMALE; 4LBS 3OZ; Other upper respiratory disease (1 source) Mucocele of maxillary sinus; Translations: [Mucous retention cyst of maxillary sinus] Episodic Other upper respiratory infections (20 sources) Viral upper respiratory tract infection; Translations: [Acute upper respiratory infection, unspecified] Onset: 9 Resolved: 3 11-22-2018 Episodic Paralysis (3 sources) Cerebral palsy 06-14-2023 Chronic Comment on above: CP CP. Residual codes; unclassified (20 sources) H/O: blood transfusion; Translations: [Other specified personal history presenting hazards to health] Episodic Residual codes; unclassified (20 sources) History of clinical finding in subject; Translations: [Personal history of other disorders of nervous system and sense organs] Episodic Residual codes; unclassified (20 sources) Past history of procedure; Translations: [Other specified personal history presenting hazards to health] Episodic Comment on above: 02/21/2021- benign; 03/06/2022; [id number]- benign; Residual codes; unclassified (6 sources) Acquired absence of other specified parts of digestive tract; Translations: [Other postprocedural status] Onset: 4 06-06-2024 Episodic Spondylosis; intervertebral disc disorders; other back problems (20 sources) Spondylosis without myelopathy or radiculopathy, lumbar region; Translations: [Lumbar spondylosis] Onset: 3 10-25-2023 Chronic Substance-related disorders (20 sources) Psychoactive substance dependence; Translations: [Sedative, hypnotic or anxiolytic dependence with withdrawal, unspecified] Onset: 3 02-25-2023 Chronic Substance-related disorders (1 source) Anxiolytic withdrawal; Translations: [Drug withdrawal] 05-18-2021 Episodic Superficial injury; contusion (20 sources) Hematoma of scalp; Translations: [Contusion of face, scalp, and neck except eye(s)] Onset: 2 Resolved: 3 08-24-2022 Episodic Thyroid disorders (20 sources) Hypothyroidism; Translations: [Hypothyroidism, unspecified] Onset: 1 12-01-2020 Chronic Unclassified (2 sources) Mental disorder; Translations: [Mental disorder, not otherwise specified] Onset: 5 Chronic Unclassified (8 sources) Obesity, Class I, BMI 30.0-34.9 (see actual BMI); Translations: [Obesity, Class I, BMI 30.0-34.9 (see actual BMI)] Onset: 8 08-14-2018 Unclassified (1 source) Repeated prescription; Translations: [Medication refill] Unclassified (2 sources) CHEST PAIN; SOB 05-14-2021 Comment on above: CHEST PAIN; SOB Unclassified (5 sources) 4 MO FU LAB 04-08-2021 Comment on above: 4 MO FU LAB Unclassified (2 sources) GENERAL MEDICAL 05-15-2021 Comment on above: GENERAL MEDICAL Unclassified (1 source) Shaky 05-15-2021 Unclassified (2 sources) EXAM 05-18-2021 Comment on above: EXAM Unclassified (1 source) Anxiolytic withdrawal 05-18-2021 Unclassified (2 sources) PUNCTURED EAR DRUM 05-27-2021 Comment on above: PUNCTURED EAR DRUM Unclassified (1 source) ONE MONTH WITH ATIVAN DISCUSSION 05-19-2021 Comment on above: ONE MONTH WITH ATIVA N DISCUSSION Unclassified (5 sources) ENCOUNTER FOR SCREENING FOR MALIGNANT NEOPLASM OF COLON 06-24-2021 Comment on above: ENCOUNTER FOR SCREEN ING FOR MALIGNANT NEOPLASM OF COLON Unclassified (1 source) FU - US RESULTS 07-01-2021 Comment on above: FU - US RESULTS Unclassified (1 source) Fracture of nasal bone 07-10-2021 Unclassified (1 source) Fall, accidental 07-10-2021 Unclassified (3 sources) 4 MONTH FU LABS 11-04-2021 Comment on above: 4 MONTH FU LABS Unclassified (3 sources) Patient encounter procedure 01-29-2021 Comment on above: YEARLY Unclassified (14 sources) THROMBOCYTOPENIA 10-07-2021 Comment on above: THROMBOCYTOPENIA Unclassified (2 sources) 4 MONTHS 08-12-2021 Comment on above: 4 MONTHS Unclassified (1 source) Thoracic compression fracture 11-27-2021 Unclassified (2 sources) 1 MONTH F/U 12-03-2021 Comment on above: 1 MONTH F/U Unclassified (2 sources) COMPRESSION FRACTURE OF T5 VERTEBRA - (S22.050A) 12-03-2021 Comment on above: COMPRESSION FRACTURE OF T5 VERTEBRA - (S22.050A) Unclassified (1 source) 1 WK WITH US 12-08-2021 Comment on above: 1 WK WITH US Unclassified (1 source) ABDOMINAL PAIN, ACUTE - (R10.9) ,ATTN LIVER AND GALLBLADDER 12-08-2021 Comment on above: ABDOMINAL PAIN, ACUT E - (R10.9) ,ATTN LIVER AND GALLBLADDER Unclassified (1 source) 1 MONTH FU 05-05-2022 Comment on above: 1 MONTH FU Unclassified (1 source) ONE MONTH FUV BILATERAL KNEE PAIN 08-19-2022 Comment on above: ONE MONTH FUV BILATE RAL KNEE PAIN Unclassified (1 source) 1 MONTH FU XRAY 08-18-2022 Comment on above: 1 MONTH FU XRAY Unclassified (1 source) Scalp abrasion 08-24-2022 Unclassified (2 sources) 1 MO F/U 11-25-2022 Comment on above: 1 MO F/U Unclassified (2 sources) 6 WEEK FUV R KNEE 11-10-2022 Comment on above: 6 WEEK FUV R KNEE Unclassified (2 sources) 3 MONTH FU 09-15-2022 Comment on above: 3 MONTH FU Unclassified (20 sources) FALLS / GAIT AND MOBILITY 11-17-2022 Comment on above: FALLS / GAIT AND MOB ILITY Unclassified (2 sources) MENTAL HEALTH EVAL 12-07-2022 Comment on above: MENTAL HEALTH EVAL Unclassified (1 source) Stress reaction 12-07-2022 Unclassified (2 sources) MENTAL EVAL 01-01-2023 Comment on above: MENTAL EVAL Unclassified (3 sources) FUV AFTER PT R KNEE PAIN 12-23-2022 Comment on above: FUV AFTER PT R KNEE PAIN Unclassified (2 sources) N/V 01-07-2023 Comment on above: N/V Unclassified (1 source) COVID-19 01-07-2023 Unclassified (1 source) Seizure-like activity 01-07-2023 Unclassified (1 source) Lumbar contusion 01-21-2023 Unclassified (2 sources) TWITCHING 04-01-2023 Comment on above: TWITCHING Unclassified (1 source) Medication addiction, episodic 04-01-2023 Unclassified (2 sources) HIGH BP 07-16-2023 Comment on above: HIGH BP Unclassified (1 source) Hypertension, uncontrolled 07-16-2023 Unclassified (1 source) Acidosis, unspecified; Translations: [Acidosis, unspecified] Onset: 3 Unclassified (2 sources) Low back pain, unspecified; Translations: [Low back pain, unspecified] Onset: 3 Unclassified (1 source) Contact with and (suspected) exposure to COVID-19; Translations: [Contact with and (suspected) exposure to COVID-19] Onset: 3 Unclassified (1 source) Cough, unspecified; Translations: [Cough, unspecified] Onset: 5 Viral infection (1 source) COVID-19; Translations: [COVID-19] Onset: 3 Past or Other Problems Problem Classification Problem Date Documented Da te Episodic/Chronic Abdominal hernia (20 sources) Hiatal hernia; Translations: [Diaphragmatic hernia without obstruction or gangrene] Onset: 01-05-2017 01-05-2017 Episodic Abdominal pain (20 sources) Right flank pain; Translations: [Abdominal pain] Onset: 01-04-2018 Resolved: 01-11-2023 01-04-2018 Episodic Comment on above: PELVIC PAIN Acute and unspecified renal failure (12 sources) Acute renal failure syndrome; Translations: [Acute kidney failure, unspecified] Onset: 10-18-2000 12-01-2020 Episodic Administrative/social admission (3 sources) Impaired mobility; Translations: [Other reduced mobility] Onset: 04-10-2024 04-04-2024 Episodic Anxiety disorders (2 sources) Irritability and anger; Translations: [Irritability and anger] Onset: 12-07-2022 Episodic Attention-deficit, conduct, and disruptive behavior disorders (2 sources) Other symptoms and signs involving appearance and behavior; Translations: [Other symptoms and signs involving appearance and behavior] Onset: 04-01-2023 Episodic Cheema (20 sources) Second degree burn of foot; Translations: [Burn of second degree of right foot, sequela] Onset: 05-03-2018 Resolved: 08-28-2018 05-03-2018 Episodic Cardiac dysrhythmias (20 sources) Palpitations; Translations: [Palpitations] Onset: 11-12-2022 Resolved: 01-11-2023 01-11-2023 Episodic Contraceptive and procreative management (20 sources) Contraception status; Translations: [Intrauterine contraceptive device in situ] Onset: 10-25-2023 10-25-2023 Episodic Diabetes mellitus without complication (20 sources) Hyperglycemia; Translations: [Other abnormal glucose] Onset: 01-11-2023 01-11-2023 Episodic E Codes: Fall (20 sources) Accidental fall ; Translations: [Unspecified fall] Onset: 12-01-2020 Resolved: 01-11-2023 07-10-2021 Episodic Fever of unknown origin (1 source) Fever, unspecified; Translations: [Fever, unspecified] Onset: 01-07-2023 Episodic Fluid and electrolyte disorders (20 sources) Hypokalemia; Translations: [Hypopotassemia] Onset: 02-14-2021 02-14-2021 Episodic Fracture of lower limb (3 sources) Fracture of distal end of fibula; Translations: [Other fracture of upper and lower end of unspecified fibula, initial encounter for closed fracture] Onset: 11-23-2024 11-12-2024 Episodic Genitourinary symptoms and ill-defined conditions (20 sources) H/O: kidney disease; Translations: [History of chronic renal impairment] Onset: 08-14-2018 07-13-2023 Episodic Comment on above: Cr wsa 1.5 on 015; Inflammatory diseases of female pelvic organs (20 sources) Bacterial vaginosis; Translations: [Vaginitis and vulvovaginitis, unspecified] Onset: 01-11-2023 01-11-2023 Episodic Malaise and fatigue (20 sources) Asthenia; Translations: [Weakness] Onset: 12-01-2020 Resolved: 02-25-2023 12-01-2020 Episodic Mood disorders (20 sources) Mood disorders; Translations: [Depression, unspecified] Onset: 11-26-2022 11-28-2022 Mycoses (20 sources) Dermatophytosis; Translations: [Dermatophytosis of unspecified site] Onset: 01-11-2023 01-11-2023 Episodic Nausea and vomiting (4 sources) Vomiting, unspecified; Translations: [Nausea and vomiting] Onset: 01-07-2023 10-22-2024 Episodic Nonspecific chest pain (20 sources) Chest pain at rest; Translations: [Chest wall pain] Onset: 10-12-2018 10-12-2018 Episodic Other bone disease and musculoskeletal deformities (20 sources) Osteopenia; Translations: [Disorder of bone and cartilage, unspecified] Onset: 01-11-2023 01-11-2023 Episodic Other circulatory disease (1 source) Personal history of transient ischemic attack (TIA), and cerebral infarction without residual deficits; Translations: [Prsnl hx of TIA (TIA), and cereb infrc w/o resid deficits] Onset: 04-01-2023 Episodic Other circulatory disease (20 sources) History of cerebrovascular disease; Translations: [Personal history of transient ischemic attack (TIA), and cerebral infarction without residual deficits] Onset: 04-01-2023 10-25-2023 Episodic Other circulatory disease (1 source) Pulmonary congestion ; Translations: [Other specified symptoms and signs involving the circulatory and respiratory systems] 01-12-2023 Episodic Other connective tissue disease (20 sources) Swelling of lower limb; Translations: [Swelling of limb] Onset: 02-25-2023 Resolved: 02-25-2023 02-25-2023 Episodic Other connective tissue disease (20 sources) Pain in left lower limb; Translations: [Pain in limb] Onset: 02-25-2023 Resolved: 02-25-2023 02-25-2023 Episodic Other connective tissue disease (2 sources) Pain in left lower leg; Translations: [Pain in left lower leg] Onset: 02-20-2023 Episodic Other connective tissue disease (3 sources) Pain in left leg; Translations: [Pain in left leg] Onset: 01-19-2023 Episodic Other connective tissue disease (2 sources) Other specified soft tissue disorders; Translations: [Other specified soft tissue disorders] Onset: 01-19-2023 Episodic Other connective tissue disease (1 source) Pain in unspecified limb; Translations: [Pain in unspecified limb] Onset: 01-19-2023 Episodic Other connective tissue disease (3 sources) Repeated falls; Translations: [Repeated falls] Onset: 08-24-2022 Episodic Other connective tissue disease (20 sources) Recurrent falls ; Translations: [Repeated falls] Onset: 08-24-2022 08-19-2023 Episodic Other diseases of kidney and ureters (2 sources) Disorder of kidney and ureter, unspecified; Translations: [Disorder of kidney and ureter, unspecified] Onset: 08-13-2023 Episodic Other ear and sense organ disorders (20 sources) Bilateral earache; Translations: [Otalgia, unspecified] Onset: 01-11-2023 Resolved: 01-11-2023 01-11-2023 Episodic Other ear and sense organ disorders (20 sources) Impacted cerumen; Translations: [Impacted cerumen] Onset: 01-11-2023 Resolved: 01-11-2023 01-11-2023 Episodic Other female genital disorders (20 sources) Vaginal discharge; Translations: [Leukorrhea, not specified as infective] Onset: 01-11-2023 Resolved: 01-11-2023 01-11-2023 Episodic Other fractures (20 sources) Compression fracture of thoracic spine; Translations: [Closed fracture of dorsal [thoracic] vertebra without mention of spinal cord injury] Onset: 01-11-2023 11-27-2021 Episodic Other gastrointestinal disorders (2 sources) Diarrhea, unspecified; Translations: [Diarrhea, unspecified] Onset: 11-26-2022 Episodic Other inflammatory condition of skin (2 sources) Seborrheic dermatitis, unspecified; Translations: [Seborrheic dermatitis, unspecified] Onset: 08-30-2024 Episodic Other injuries and conditions due to external causes (20 sources) Closed injury of head; Translations: [Head injury, unspecified] Onset: 10-25-2023 07-10-2021 Episodic Other injuries and conditions due to external causes (3 sources) Unspecified injury of head, initial encounter; Translations: [Unspecified injury of head, initial encounter] Onset: 05-06-2022 Episodic Other injuries and conditions due to external causes (1 source) Other specified injuries of head, initial encounter; Translations: [Other specified injuries of head, initial encounter] Onset: 01-21-2023 Episodic Other injuries and conditions due to external causes (1 source) History of falling; Translations: [History of falling] Onset: 01-21-2023 Episodic Other lower respiratory disease (1 source) Cough; Translations: [Cough in adult] 01-12-2023 Episodic Other nervous system disorders (6 sources) Tremor, unspecified; Translations: [Tremor, unspecified] Onset: 04-01-2023 Episodic Other nervous system disorders (2 sources) Fasciculation; Translations: [Fasciculation] Onset: 11-01-2022 Episodic Other nervous system disorders (4 sources) Personal history of other diseases of the nervous system and sense organs; Translations: [Personal history of other diseases of the nervous system and sense organs] Onset: 04-10-2024 Episodic Other non-traumatic joint disorders (3 sources) Knee pain; Translations: [Pain in unspecified knee] Onset: 01-11-2023 Resolved: 01-11-2023 01-11-2023 Episodic Other non-traumatic joint disorders (2 sources) Pain in left shoulder; Translations: [Pain in left shoulder] Onset: 08-24-2022 Episodic Other nutritional; endocrine; and metabolic disorders (2 sources) Hyperuricemia without signs of inflammatory arthritis and tophaceous disease; Translations: [Hyperuricemia without signs of inflammatory arthritis and tophaceous disease] Onset: 06-02-2023 Episodic Other screening for suspected conditions (not mental disorders or infectious disease) (20 sources) Platelet count below reference range; Translations: [Cancer cervix - screening done] Onset: 12-01-2020 12-01-2020 Episodic Other skin disorders (20 sources) Hirsutism; Translations: [Hirsutism] Onset: 10-05-2016 10-05-2016 Episodic Other skin disorders (2 sources) Generalized hyperhidrosis; Translations: [Generalized hyperhidrosis] Onset: 04-01-2023 Episodic Other skin disorders (20 sources) Generalized hyperhidrosis; Translations: [Generalized hyperhidrosis] Onset: 04-01-2023 10-25-2023 Episodic Other skin disorders (1 source) Hirsutism; Translations: [Hirsutism] Onset: 10-05-2016 Episodic Other upper respiratory infections (20 sources) Sinusitis; Translations: [Unspecified sinusitis (chronic)] Onset: 01-11-2023 Resolved: 01-11-2023 01-11-2023 Chronic Otitis media and related conditions (20 sources) Otitis media; Translations: [Unspecified otitis media] Onset: 01-11-2023 Resolved: 01-11-2023 01-11-2023 Episodic Ovarian cyst (1 source) Unspecified ovarian cyst, left side; Translations: [Unspecified ovarian cyst, left side] Onset: 04-15-2023 Episodic Poisoning by other medications and drugs (20 sources) Sodium valproate adverse reaction; Translations: [Poisoning by other antiepileptic and sedative-hypnotic drugs, accidental (unintentional), initial encounter] Onset: 03-01-2019 Resolved: 02-25-2023 03-01-2019 Episodic Residual codes; unclassified (20 sources) Influenza vaccination declined; Translations: [Vaccination not carried out because of patient refusal] Onset: 08-18-2022 Episodic Residual codes; unclassified (1 source) Insomnia, unspecified; Translations: [Insomnia, unspecified] Onset: 11-26-2022 Episodic Screening and history of mental health and substance abuse codes (5 sources) H/O: anxiety state; Translations: [Personal history of nicotine dependence] Onset: 01-08-2023 Episodic Skull and face fractures (20 sources) Closed undisplaced fracture of nasal bone; Translations: [Closed fracture of nasal bones] Onset: 12-01-2020 12-01-2020 Episodic Spondylosis; intervertebral disc disorders; other back problems (20 sources) Backache; Translations: [Backache, unspecified] Onset: 11-26-2022 Resolved: 01-11-2023 01-11-2023 Episodic Sprains and strains (4 sources) Strain of muscle, fascia and tendon at neck level, initial encounter; Translations: [Strain of muscle, fascia and tendon of lower back, initial encounter] Onset: 05-06-2022 Episodic Suicide and intentional self-inflicted injury (1 source) Suicidal ideations; Translations: [Suicidal ideations] Onset: 01-01-2023 Episodic Unclassified (2 sources) ERRONEOUS ENCOUNTER--DISREGARD Unclassified (7 sources) History of clinical finding in subject; Translations: [History of seizure] Unclassified (7 sources) H/O: blood transfusion; Translations: [History of blood transfusion] Unclassified (6 sources) Malposition of intrauterine contraceptive device; Translations: [Malpositioned IUD] Unclassified (20 sources) Other; Translations: [Other] Onset: 02-25-2023 Resolved: 09-21-2023 02-25-2023 Urinary tract infections (20 sources) History of urinary tract infection; Translations: [Personal history of urinary (tract) infections] Onset: 08-14-2018 08-14-2018 Episodic Comment on above: UTI Viral infection (20 sources) Disease caused by 2019-nCoV; Translations: [Other specified viral infection] Onset: 01-11-2023 01-07-2023 Episodic NEGATED: Highlighted row has not occurred!Residual codes; unclassified (19 sources) Disease Episodic Results Test Name Value Interpretation Reference Range Facility Absolute lymphocyte countOrd ered By: Lawson Higgins on 04-04-2025 Lymphocytes Auto (Unsp spec) [#/Vol] 2.18 10*3/uL 0.83-4.51 [facility] Absolute neutrophil countOrd ered By: Lawson Higgins on 04-04-2025 Neutrophils (Bld) [#/Vol] 6.3 10*3/uL 2.0-7.7 [facility] Anion gap in Serum or Plasma Ordered By: Lawson Higgins on 04-04-2025 Anion gap [Moles/Vol] 13 mmol/L 5-15 [facility] Automated lymphocyte count a s percentage of total leukocytesOrdered By: Lawson Higgins on 04-04-2025 Lymphocytes/100 WBC Auto (Unsp spec) 22.8 % - [facility] BUN/creatinine ratioOrdered By: Lawson Higgins on 04-04-2025 Urea nitrogen/Creatinine [Mass ratio] 17.7 mg/mg - [facility] Basic Metabolic Profile (BMP )on 04-04-2025 BUN/CRE 17.7 RATIO Normal - [facility] Comment on above: Performed By: #### L 500.2500, L100.0100 #### [facility] [address] [place], [address] Calcium [Mass/Vol] 10.0 mg/dL Normal 7.6-11.0 [facility] Comment on above: Performed By: #### L 500.2500, L100.0100 #### [facility] [address] [place], [address] Chloride [Moles/Vol] 99 mmol/L Normal 98-108 [facility] Comment on above: Performed By: #### L 500.2500, L100.0100 #### [facility] [address] [place], [address] CO2 [Moles/Vol] 24.2 mmol/L Normal 21.0-32.0 [facility] Comment on above: Performed By: #### L 500.2500, L100.0100 #### [facility] [address] [place], [address] Creatinine [Mass/Vol] 1.50 mg/dL High 0.70-1.20 [facility] Comment on above: Performed By: #### L 500.2500, L100.0100 #### [facility] [address] [place], [address] ECRCL 39.97 ml/min Low 50-250 [facility] Comment on above: Performed By: #### L 500.2500, L100.0100 #### [facility] [address] [place], [address] GAP 13 Normal 5-15 [facility] Comment on above: Performed By: #### L 500.2500, L100.0100 #### [facility] [address] [place], [address] GFR/1.73 sq M.predicted among non-blacks MDRD (S/P/Bld) [Vol rate/Area] 42 mL/min/{1.73_m2} Low >60 [facility] Comment on above: Result Comment: mL/m in/1.73m2 CKD-EPI Creatinine Equation (2020) Performed By: #### L 500.2500, L100.0100 #### [facility] [address] [place], [address] Glucose [Mass/Vol] 94 mg/dL Normal 70-99 [facility] Comment on above: Performed By: #### L 500.2500, L100.0100 #### [facility] [address] [place], [address] Potassium [Moles/Vol] 5.2 mmol/L High 3.3-5.1 [facility] Comment on above: Result Comment: Hemo lysis present, Results??could be affected. ?? Performed By: #### L 500.2500, L100.0100 #### [facility] [address] [place], [address] Sodium [Moles/Vol] 137 mmol/L Normal 133-145 [facility] Comment on above: Performed By: #### L 500.2500, L100.0100 #### [facility] [address] [place], [address] Urea nitrogen [Mass/Vol] 27 mg/dL High 4-19 [facility] Comment on above: Performed By: #### L 500.2500, L100.0100 #### [facility] [address] [place], [address] Basophil percentageOrdered B y: Lawson Higgins on 04-04-2025 Basophils/100 WBC (Bld) 0.3 % 0-1 [facility] CBC W/Diff, Automatedon 03-18 Absolute Lymph 2.18 X10 3/uL Normal 0.83-4.51 [facility] Comment on above: Performed By: #### L 500.2500, L100.0100 #### [facility] [address] [place], [address] Absolute Neut 6.3 X10 3/uL Normal 2.0-7.7 [facility] Comment on above: Performed By: #### L 500.2500, L100.0100 #### [facility] [address] [place], [address] Basophils/100 WBC (Bld) 0.3 % Normal 0-1 [facility] Comment on above: Performed By: #### L 500.2500, L100.0100 #### [facility] [address] [place], [address] Eosinophils/100 WBC (Bld) 0.4 % Normal 0-5 [facility] Comment on above: Performed By: #### L 500.2500, L100.0100 #### [facility] [address] [place], [address] Erythrocyte distribution width (RBC) [Ratio] 12.8 % Normal 11.6-14.6 [facility] Comment on above: Performed By: #### L 500.2500, L100.0100 #### [facility] [address] [place], [address] Hematocrit (Bld) [Volume fraction] 46.2 % Normal 37-47 [facility] Comment on above: Performed By: #### L 500.2500, L100.0100 #### [facility] [address] [place], [address] Hemoglobin (Bld) [Mass/Vol] 16.0 g/dL High 12.0-15.0 [facility] Comment on above: Performed By: #### L 500.2500, L100.0100 #### [facility] [address] [place], [address] IG% 0.500 Normal 0.0-0.9 [facility] Comment on above: Result Comment: IG% - Immature Granulocytes (promyelocytes, myelocytes and metamyelocytes) > 1% indicates that a LEFT SHIFT is Present. Performed By: #### L 500.2500, L100.0100 #### [facility] [address], [address] Lymphocytes/100 WBC (Bld) 22.8 % Normal 19-41 [facility] Comment on above: Performed By: #### L 500.2500, L100.0100 #### [facility] [address] [place], [address] MCH (RBC) [Entitic mass] 29.9 pg Normal 27.0-32.0 [facility] Comment on above: Performed By: #### L 500.2500, L100.0100 #### [facility] [address] [place], [address] MCHC (RBC) [Mass/Vol] 34.6 g/dL Normal 32-36 [facility] Comment on above: Performed By: #### L 500.2500, L100.0100 #### [facility] [address] [place], [address] MCV (RBC) [Entitic vol] 86.4 fL Normal 81-99 [facility] Comment on above: Performed By: #### L 500.2500, L100.0100 #### [facility] [address] [place], [address] Monocytes/100 WBC (Bld) 10.3 % High 0-10 [facility] Comment on above: Performed By: #### L 500.2500, L100.0100 #### [facility] [address] [place], [address] Neutrophils/100 WBC (Bld) 65.7 % Normal 47-70 [facility] Comment on above: Performed By: #### L 500.2500, L100.0100 #### [facility] [address] [place], [address] Nucleated RBC (Bld) [#/Vol] 0 10*3/uL Normal 0-5 [facility] Comment on above: Performed By: #### L 500.2500, L100.0100 #### [facility] [address] [place], [address] Platelet mean volume (Bld) [Entitic vol] 10.7 fL Normal 6.2-12.0 [facility] Comment on above: Performed By: #### L 500.2500, L100.0100 #### [facility] [address] [place], [address] Platelets (Bld) [#/Vol] 159 10*3/uL Normal 150-450 [facility] Comment on above: Performed By: #### L 500.2500, L100.0100 #### [facility] [address] [place], [address] RBC (Bld) [#/Vol] 5.35 10*6/uL Normal 4.2-5.4 [facility] Comment on above: Performed By: #### L 500.2500, L100.0100 #### [facility] [address] [place], [address] RDW SD 39.6 fl Normal 35.1-43.9 [facility] Comment on above: Performed By: #### L 500.2500, L100.0100 #### [facility] [address] [place], [address] WBC (Bld) [#/Vol] 9.6 10*3/uL Normal 4.4-11.0 [facility] Comment on above: Performed By: #### L 500.2500, L100.0100 #### [facility] [address] [place], [address] Carbon dioxide, total [Moles /volume] in Central venous bloodOrdered By: Lawson Higgins on 04-04-2025 CO2 [Moles/Vol] 24.2 mmol/L 21.0-32.0 [facility] Chloride assayOrdered By: Kalpana Higgins on 04-04-2025 Chloride [Moles/Vol] 99 mmol/L 98-108 [facility] Emergency Department Summary on 04-04-2025 Emergency Department Summary [facility] Medical Records Department [address] [place] [address] Emergency Department Summary 04/04/25 MR#: [id number] Acct: [id number] Name: REEMA SHAH Rep #: [id number] : 1975 49 From: Lawson Higgins MD PCP: Dr. Sree Jamison MD Status:REG ER Location: ED HPI History of Present Illness Chief Complaint: Mental Health Detail of Chief Complaint: Behavioral issue versus psychiatric disorder Informant: patient, EMS and SNF Onset/Context/Timing Onset: Today (Patient states they have not paid attention to her after she vomited on herself.) Context: - (HPI narrative) Timing: Intermittent and Waxes and wanes Quality: Patient does not wish to return to nursing facility Location: [place] Current Severity: Mild Maximum Severity: Moderate Worsened by: Unknown Relieved by: Nothing Associated Symptoms Associated Symptoms: Patient with little eye contact. And has tremor. She states that she does Narrative Narrative: patient is a 49-year-old woman. Patient presents from residential by ambulance for psychiatric eval. Reportedly patient vomit on herself to get attention per nursing staff at facility. Patient states nursing staff did not pay attention to her after she had vomited on herself. Patient states she does not want to go back. Patient states she is upset and angry. Patient has history of hyperlipidemia, hypertension, gait abnormality, epilepsy, monoclonas jerks and long-term use of high-risk medication. Patient's history is very confusing. Nursing staff is uncertain why she is here. Charge nurse contacted and apparently she demanded to be evaluated and he suggested that she have a psychiatric eval. Prior similar symptoms: Yes (Per the lysin social economist Lori who was asked to see her to help determi) Recent Illness/Hospitalization : No PFSH [facility] Medical History Borderline personality disorder Long-term use of high-risk medication Systolic heart failure Major depressive disorder Tremor History of IA (myocardial infarction) History of TIA (transient ischemic attack) [place]ES (obstructive sleep apnea) Separation of muscle (nontraumatic), unspecified site Nonrheumatic mitral (valve) prolapse Hypercholesteremia Fatty liver Edema Diaphragmatic hernia Hirsutism Fracture of nasal bone Insomnia History of UTI Obesity Psoriasis GERD (gastroesophageal reflux disease) CKD (chronic kidney disease) Epileptic seizure, generalized Hypokalemia Hypothyroidism [place] Home Medications ???Medication ???Instructions ???Recorded ???Last Taken ???Type albuterol sulfate 90 mcg/actuation 1 - 2 puff inhalation Q6H PRN WV N 03/05/20 Unknown History aerosol inhaler Sob /Or Wheezing acetaminophen 325 mg capsule 650 mg PO Q4H PRN fever or pain Unknown History (Tylenol) artifi.tears(hypromello se)(PF) 0.3 2 drp ophthalmic (eye) .Q1HR PRN 06/05/21 Unknown History % eye drops dry eye(s) atorvastatin 20 mg tablet 20 mg PO QHS 06/05/21 Unknown Hist ory buspirone 10 mg tablet 10 mg PO TID 06/05/21 Unknown Hist ory levothyroxine 25 mcg capsule 25 mcg PO DAILY 06/05/21 Unknown H istory loratadine 10 mg capsule 10 mg PO QHS 06/05/21 Unknown Hist ory melatonin 5 mg capsule 10 mg PO QHS PRN insomnia 06/05/21 Unknown History potassium chloride 10 mEq 20 meq PO BID 08/26/21 Unknown His tory capsule,extended release calcium carbonate (Gaby-Gest 200 mg PO DAILY 12/23/21 Unknown H istory Antacid) cyanocobalamin (vitamin B-12) 1,000 mcg PO DAILY 12/23/21 Unknow n History 1,000 mcg tablet guaifenesin 400 mg tablet 400 mg PO Q6H PRN cough 12/23/21 U nknown History menthol 4 % topical gel (Biofreeze 1 applic topical DAILY PRN pain 12/23/21 Unknown History (menthol)) levetiracetam 500 mg tablet 500 mg PO BID #60 tabs 08/13/22 Un known Rx (Keppra) calcium 600 mg (as 1 tab PO BID 09/26/24 Unknown Hist ory carbonate)-vitamin D3 10 mcg (400 unit) tablet desvenlafaxine succinate 50 mg 100 mg PO DAILY 09/26/24 Unknown H istory tablet,extended release 24 hr famotidine 20 mg tablet 20 mg PO BID 09/26/24 Unknown Hist ory lidocaine 5 % topical patch 1 patch topical DAILY 09/26/24 Unk nown History lisinopril 20 mg tablet 20 mg PO DAILY 09/26/24 Unknown Hi story magnesium oxide 400 mg (241.3 mg 400 mg PO DAILY 09/26/24 Unknown H istory magnesium) tablet metoprolol tartrate 25 mg tablet 25 mg PO BID 09/26/24 Unknown Hist ory ondansetron 4 mg disintegrating 4 mg PO Q6H PRN nausea and 4 Unknown Rx tablet vomiting #20 tabs primidone 50 mg tablet 200 mg PO BID 09/26/24 Unknown His tory lorazepam 1 mg tablet 2 mg PO Q12H 10/02/24 Unknown Hist ory amlodipine 5 mg tablet 5 mg PO BID 11/04/24 Unknown Histo ry (more content not included)... Normal [facility] Eosinophil percentageOrdered By: Lawson Higgins on 04-04-2025 Eosinophils/100 WBC (Bld) 0.4 % 0-5 [facility] Erythrocyte distribution wid th ratioOrdered By: Lawson Higgins on 04-04-2025 Erythrocyte distribution width (RBC) [Ratio] 12.8 % 11.6-14.6 [facility] Erythrocyte distribution wid th standard deviationOrdered By: Lawson Higgins on 04-04-2025 Erythrocyte distribution width (RBC) [Ratio] 39.6 fl 35.1-43.9 [facility] Foot min 3 Viewson 5 Foot min [address] [facility] [address] [place] [address] Foot min 3 Views MR#: [id number] Acct: [id number] Name: REEMA SHAH Rep #: [id number] : 1975 F 49 From: Maxine Morgan MD PCP: Dr. Sree Jamison MD Status: REG ER Study: Foot min 3 Views Date of Exam: 04/04/25 Exam# [id number] Ordering Dr: Lawson Higgins MD PROCEDURE: FOOT MIN 3 VIEWS 04/04/2025 REASON FOR EXAM: INJURY/PAIN TECHNIQUE: FOOT MIN 3 VIEWS COMPARISON: 11/04/2024. FINDINGS: No evidence acute fracture or dislocation. Mild degenerative changes of the foot. The soft tissues are unremarkable. RAD/Foot min 3 Views IMPRESSION: NO ACUTE FRACTURE OR DISLOCATION. Reading Location: [id number] CC: Dr. Sree Jamison MD; Dr. Lawson Higgins MD Machine Shorthand Teacher: Signed Normal [facility] Glomerular filtration rate ( GFR) estimation/1.73 sq m using serum, plasma, or whole bOrdered By: Lawson Higgins on 04-04-2025 GFR/1.73 sq M.predicted among non-blacks MDRD (S/P/Bld) [Vol rate/Area] 42 mL/min/{1.73_m2} Low >60 [facility] Comment on above: mL/min/1.73m2 CKD-EP I Creatinine Equation (2020) Hematocrit Auto (Bld) [Volum e fraction]Ordered By: Lawson Higgins on 04-04-2025 Hematocrit (Bld) [Volume fraction] 46.2 % 37-47 [facility] Hemoglobin measurementOrdere d By: Lawson Higgins on 04-04-2025 Hemoglobin (Bld) [Mass/Vol] 16.0 g/dL High 12.0-15.0 [facility] Immature granulocytes/100 WB C Auto (Bld)Ordered By: Lawson Higgins on 04-04-2025 Immature granulocytes/100 WBC (Bld) 0.500 % 0.0-0.9 [facility] Comment on above: IG% - Immature Granu locytes (promyelocytes, myelocytes and metamyelocytes) > 1% indicates that a LEFT SHIFT is Present. MCV (mean corpuscular volume ) determinationOrdered By: aLwson Higgins on 04-04-2025 MCV (RBC) [Entitic vol] 86.4 fL 81-99 [facility] Mean corpuscular hemoglobin (MCH) determinationOrdered By: Lawson Higgins on 04-04-2025 MCH (RBC) [Entitic mass] 29.9 pg 27.0-32.0 [facility] Mean corpuscular hemoglobin concentration (MCHC) determinationOrdered By: Lawson Higgins on 04-04-2025 MCHC (RBC) [Mass/Vol] 34.6 g/dL 32-36 [facility] Mean platelet volume determi nationOrdered By: Lawson Higgins on 04-04-2025 Platelet mean volume (Bld) [Entitic vol] 10.7 fL 6.2-12.0 [facility] Monocyte percentageOrdered B y: Lawson Higgins on 04-04-2025 Monocytes/100 WBC (Bld) 10.3 % High 0-10 [facility] Neutrophil percentageOrdered By: Lawson Higgins on 04-04-2025 Neutrophils/100 WBC (Bld) 65.7 % 47-70 [facility] Nucleated red blood cell per centageOrdered By: Lawsoncorky Higgins on 04-04-2025 Nucleated RBC/100 WBC (Bld) [Ratio] 0 % 0-5 [facility] Platelet countOrdered By: corky Higgins on 04-04-2025 Platelets (Bld) [#/Vol] 159 10*3/uL 150-450 [facility] Potassium measurement (mass/ volume)Ordered By: Lawsoncorky Higgins on 04-04-2025 Potassium (Unsp spec) [Mass/Vol] 5.2 mmol/L High 3.3-5.1 [facility] Comment on above: Hemolysis present, R esults could be affected. RBC Auto (Bld) [#/Vol]Ordere d By: Lawson Higgins on 04-04-2025 RBC (Bld) [#/Vol] 5.35 10*6/uL 4.2-5.4 [facility] Serum creatinine measurement (mass/volume)Ordered By: Lawson Higgins on 04-04-2025 Creatinine [Mass/Vol] 1.50 mg/dL High 0.70-1.20 [facility] Serum glucose measurement (m ass/volume)Ordered By: Lawsoncorky Higgins on 04-04-2025 Glucose [Mass/Vol] 94 mg/dL 70-99 [facility] Serum or plasma calcium flores urement (mass/volume)Ordered By: Lawsoncorky Higgins on 04-04-2025 Calcium [Mass/Vol] 10.0 mg/dL 7.6-11.0 [facility] Serum or plasma urea nitroge n measurement (mass/volume)Ordered By: Lawson Higgins on 04-04-2025 Urea nitrogen [Mass/Vol] 27 mg/dL High 4-19 [facility] Sodium levelOrdered By: Lawsoncorky Higgins on 04-04-2025 Sodium [Moles/Vol] 137 mmol/L 133-145 [facility] White blood cell (WBC) count Ordered By: Lawson Higgins on 04-04-2025 WBC (Bld) [#/Vol] 9.6 10*3/uL 4.4-11.0 [facility] Absolute lymphocyte countOrd ered By: Ian Starr on 03-21-2025 Lymphocytes Auto (Unsp spec) [#/Vol] 1.08 10*3/uL 0.83-4.51 [facility] Absolute neutrophil countOrd ered By: Ian Starr on 03-21-2025 Neutrophils (Bld) [#/Vol] 3.1 10*3/uL 2.0-7.7 [facility] Anion gap in Serum or Plasma Ordered By: Ian Starr on 03-21-2025 Anion gap [Moles/Vol] 12 mmol/L 5-15 [facility] Automated lymphocyte count a s percentage of total leukocytesOrdered By: Ian Starr on 03-21-2025 Lymphocytes/100 WBC Auto (Unsp spec) 23.2 % 19-41 [facility] BUN/creatinine ratioOrdered By: Ian Starr on 03-21-2025 Urea nitrogen/Creatinine [Mass ratio] 23.5 mg/mg High 10- [facility] Basic Metabolic Profile (BMP )on 03-21-2025 BUN/CRE 23.5 RATIO High 10- [facility] Comment on above: Performed By: #### L 500.2500, L501.8100, L501.5200, L100.0100 #### [facility] [address] [place], [address] Calcium [Mass/Vol] 9.2 mg/dL Normal 7.6-11.0 [facility] Comment on above: Performed By: #### L 500.2500, L501.8100, L501.5200, L100.0100 #### [facility] [address] [place], [address] Chloride [Moles/Vol] 102 mmol/L Normal 98-108 [facility] Comment on above: Performed By: #### L 500.2500, L501.8100, L501.5200, L100.0100 #### [facility] [address] [place], [address] CO2 [Moles/Vol] 23.8 mmol/L Normal 21.0-32.0 [facility] Comment on above: Performed By: #### L 500.2500, L501.8100, L501.5200, L100.0100 #### [facility] [address] [place], [address] Creatinine [Mass/Vol] 1.39 mg/dL High 0.70-1.20 [facility] Comment on above: Performed By: #### L 500.2500, L501.8100, L501.5200, L100.0100 #### [facility] [address] [place], [address] ECRCL 43.92 ml/min Low 50-250 [facility] Comment on above: Performed By: #### L 500.2500, L501.8100, L501.5200, L100.0100 #### [facility] [address] [place], [address] GAP 12 Normal 5-15 [facility] Comment on above: Performed By: #### L 500.2500, L501.8100, L501.5200, L100.0100 #### [facility] [address] [place], [address] GFR/1.73 sq M.predicted among non-blacks MDRD (S/P/Bld) [Vol rate/Area] 46 mL/min/{1.73_m2} Low >60 [facility] Comment on above: Result Comment: mL/m in/1.73m2 CKD-EPI Creatinine Equation (2020) Performed By: #### L 500.2500, L501.8100, L501.5200, L100.0100 #### [facility] [address] [place], [address] Glucose [Mass/Vol] 93 mg/dL Normal 70-99 [facility] Comment on above: Performed By: #### L 500.2500, L501.8100, L501.5200, L100.0100 #### [facility] [address] [place], [address] Potassium [Moles/Vol] 4.5 mmol/L Normal 3.3-5.1 [facility] Comment on above: Performed By: #### L 500.2500, L501.8100, L501.5200, L100.0100 #### [facility] [address] [place], [address] Sodium [Moles/Vol] 138 mmol/L Normal 133-145 [facility] Comment on above: Performed By: #### L 500.2500, L501.8100, L501.5200, L100.0100 #### [facility] [address] [place], [address] Urea nitrogen [Mass/Vol] 33 mg/dL High 4-19 [facility] Comment on above: Performed By: #### L 500.2500, L501.8100, L501.5200, L100.0100 #### [facility] [address] [place], [address] Basophil percentageOrdered B y: Ian Starr on 03-21-2025 Basophils/100 WBC (Bld) 0.6 % 0-1 [facility] Bilirubin Test strip Ql (U)O rdered By: Ian Starr on 03-21-2025 Bilirubin Ql (U) Negative Negative [facility] CBC W/Diff, Automatedon Absolute Lymph 1.08 X10 3/uL Normal 0.83-4.51 [facility] Comment on above: Performed By: #### L 500.2500, L501.8100, L501.5200, L100.0100 #### [facility] [address] [place], [address] Absolute Neut 3.1 X10 3/uL Normal 2.0-7.7 [facility] Comment on above: Performed By: #### L 500.2500, L501.8100, L501.5200, L100.0100 #### [facility] [address] [place], [address] Basophils/100 WBC (Bld) 0.6 % Normal 0-1 [facility] Comment on above: Performed By: #### L 500.2500, L501.8100, L501.5200, L100.0100 #### [facility] [address] [place], [address] Eosinophils/100 WBC (Bld) 0.6 % Normal 0-5 [facility] Comment on above: Performed By: #### L 500.2500, L501.8100, L501.5200, L100.0100 #### [facility] [address] [place], [address] Erythrocyte distribution width (RBC) [Ratio] 12.2 % Normal 11.6-14.6 [facility] Comment on above: Performed By: #### L 500.2500, L501.8100, L501.5200, L100.0100 #### [facility] [address] [place], [address] Hematocrit (Bld) [Volume fraction] 40.8 % Normal 37-47 [facility] Comment on above: Performed By: #### L 500.2500, L501.8100, L501.5200, L100.0100 #### [facility] [address] [place], [address] Hemoglobin (Bld) [Mass/Vol] 14.2 g/dL Normal 12.0-15.0 [facility] Comment on above: Performed By: #### L 500.2500, L501.8100, L501.5200, L100.0100 #### [facility] [address] [place], [address] IG% 0.600 Normal 0.0-0.9 [facility] Comment on above: Result Comment: IG% - Immature Granulocytes (promyelocytes, myelocytes and metamyelocytes) > 1% indicates that a LEFT SHIFT is Present. Performed By: #### L 500.2500, L501.8100, L501.5200, L100.0100 #### [facility] [address] [place], [address] Lymphocytes/100 WBC (Bld) 23.2 % Normal 19-41 [facility] Comment on above: Performed By: #### L 500.2500, L501.8100, L501.5200, L100.0100 #### [facility] [address] [place], [address] MCH (RBC) [Entitic mass] 30.1 pg Normal 27.0-32.0 [facility] Comment on above: Performed By: #### L 500.2500, L501.8100, L501.5200, L100.0100 #### [facility] [address] [place], [address] MCHC (RBC) [Mass/Vol] 34.8 g/dL Normal 32-36 [facility] Comment on above: Performed By: #### L 500.2500, L501.8100, L501.5200, L100.0100 #### [facility] [address] [place], [address] MCV (RBC) [Entitic vol] 86.4 fL Normal 81-99 [facility] Comment on above: Performed By: #### L 500.2500, L501.8100, L501.5200, L100.0100 #### [facility] [address] [place], [address] Monocytes/100 WBC (Bld) 9.0 % Normal 0-10 [facility] Comment on above: Performed By: #### L 500.2500, L501.8100, L501.5200, L100.0100 #### [facility] [address] [place], [address] Neutrophils/100 WBC (Bld) 66.0 % Normal 47-70 [facility] Comment on above: Performed By: #### L 500.2500, L501.8100, L501.5200, L100.0100 #### [facility] [address] [place], [address] Nucleated RBC (Bld) [#/Vol] 0 10*3/uL Normal 0-5 [facility] Comment on above: Performed By: #### L 500.2500, L501.8100, L501.5200, L100.0100 #### [facility] [address] [place], [address] Platelet mean volume (Bld) [Entitic vol] 10.0 fL Normal 6.2-12.0 [facility] Comment on above: Performed By: #### L 500.2500, L501.8100, L501.5200, L100.0100 #### [facility] [address] [place], [address] Platelets (Bld) [#/Vol] 109 10*3/uL Low 150-450 [facility] Comment on above: Performed By: #### L 500.2500, L501.8100, L501.5200, L100.0100 #### [facility] [address] [place], [address] RBC (Bld) [#/Vol] 4.72 10*6/uL Normal 4.2-5.4 [facility] Comment on above: Performed By: #### L 500.2500, L501.8100, L501.5200, L100.0100 #### [facility] [address] [place], [address] RDW SD 38.5 fl Normal 35.1-43.9 [facility] Comment on above: Performed By: #### L 500.2500, L501.8100, L501.5200, L100.0100 #### [facility] [address] [place], [address] WBC (Bld) [#/Vol] 4.7 10*3/uL Normal 4.4-11.0 [facility] Comment on above: Performed By: #### L 500.2500, L501.8100, L501.5200, L100.0100 #### [facility] [address] [place], [address] Carbon dioxide, total [Moles /volume] in Central venous bloodOrdered By: Ian Starr on 03-21-2025 CO2 [Moles/Vol] 23.8 mmol/L 21.0-32.0 [facility] Chloride assayOrdered By: Kika Starr on 03-21-2025 Chloride [Moles/Vol] 102 mmol/L 98-108 [facility] Emergency Department Summary on 03-21-2025 Emergency Department Summary [facility] Medical Records Department [address] [place] [address] Emergency Department Summary 03/21/25 MR#: [id number] Acct: [id number] Name: REEMA SHAH Rep #: [id number] : 1975 49 From: Ian Starr MD PCP: Dr. Sree Jamison MD Status:REG ER Location: ED HPI History of Present Illness Chief Complaint: Seizure Informant: patient Narrative Narrative: 49-year-old female from a residential currently has seizure activity this morning. The patient states she thinks it was [place], was told she has a history of that. She had a 3-day epilepsy study that was abnormal, and is on antiepileptics, has had no major changes in her medications recently, she thinks she received her morning medications after she had her seizure this morning. She denies any recent illness but states she vomits off and on and that has been the case yesterday. [facility] Medical History Borderline personality disorder Long-term use of high-risk medication Systolic heart failure Major depressive disorder Tremor History of IA (myocardial infarction) History of TIA (transient ischemic attack) MELQUIADES (obstructive sleep apnea) Separation of muscle (nontraumatic), unspecified site Nonrheumatic mitral (valve) prolapse Hypercholesteremia Fatty liver Edema Diaphragmatic hernia Hirsutism Fracture of nasal bone Insomnia History of UTI Obesity Psoriasis GERD (gastroesophageal reflux disease) CKD (chronic kidney disease) Epileptic seizure, generalized Hypokalemia Hypothyroidism [place] Home Medications ???Medication ???Instructions ???Recorded ???Last Taken ???Type albuterol sulfate 90 mcg/actuation 1 - 2 puff inhalation Q6H PRN WV N 03/05/20 Unknown History aerosol inhaler Sob /Or Wheezing acetaminophen 325 mg capsule 650 mg PO Q4H PRN fever or pain Unknown History (Tylenol) artifi.tears(hypromello se)(PF) 0.3 2 drp ophthalmic (eye) .Q1HR PRN 06/05/21 Unknown History % eye drops dry eye(s) atorvastatin 20 mg tablet 20 mg PO QHS 06/05/21 Unknown Hist ory buspirone 10 mg tablet 10 mg PO TID 06/05/21 Unknown Hist ory levothyroxine 25 mcg capsule 25 mcg PO DAILY 06/05/21 Unknown H istory loratadine 10 mg capsule 10 mg PO QHS 06/05/21 Unknown Hist ory melatonin 5 mg capsule 10 mg PO QHS PRN insomnia 06/05/21 Unknown History potassium chloride 10 mEq 20 meq PO BID 08/26/21 Unknown His tory capsule,extended release calcium carbonate (Gaby-Gest 200 mg PO DAILY 12/23/21 Unknown H istory Antacid) cyanocobalamin (vitamin B-12) 1,000 mcg PO DAILY 12/23/21 Unknow n History 1,000 mcg tablet guaifenesin 400 mg tablet 400 mg PO Q6H PRN cough 12/23/21 U nknown History menthol 4 % topical gel (Biofreeze 1 applic topical DAILY PRN pain 12/23/21 Unknown History (menthol)) levetiracetam 500 mg tablet 500 mg PO BID #60 tabs 08/13/22 Un known Rx (Keppra) calcium 600 mg (as 1 tab PO BID 09/26/24 Unknown Hist ory carbonate)-vitamin D3 10 mcg (400 unit) tablet desvenlafaxine succinate 50 mg 100 mg PO DAILY 09/26/24 Unknown H istory tablet,extended release 24 hr famotidine 20 mg tablet 20 mg PO BID 09/26/24 Unknown Hist ory lidocaine 5 % topical patch 1 patch topical DAILY 09/26/24 Unk nown History lisinopril 20 mg tablet 20 mg PO DAILY 09/26/24 Unknown Hi story magnesium oxide 400 mg (241.3 mg 400 mg PO DAILY 09/26/24 Unknown H istory magnesium) tablet metoprolol tartrate 25 mg tablet 25 mg PO BID 09/26/24 Unknown Hist ory ondansetron 4 mg disintegrating 4 mg PO Q6H PRN nausea and 4 Unknown Rx tablet vomiting #20 tabs primidone 50 mg tablet 200 mg PO BID 09/26/24 Unknown His tory lorazepam 1 mg tablet 2 mg PO Q12H 10/02/24 Unknown Hist ory amlodipine 5 mg tablet 5 mg PO BID 11/04/24 Unknown Histo ry allopurinol 100 mg tablet 100 mg PO DAILY 03/21/25 Unknown H istory bisacodyl 10 mg rectal suppository 10 mg W[place] DAILY PRN constipation 03/21/25 Unknown History cholecalciferol (vitamin D3) 50 2,000 unit PO DAILY 03/21/25 Unkno wn History mcg (2,000 unit) capsule clonidine HCl 0.1 mg tablet 0.1 mg PO TID 03/21/25 Unknown His tory divalproex 250 mg tablet,extended 250 mg PO BID 03/21/25 Unknown Hi story release 24 hr magnesium hydroxide 400 mg/5 mL 30 ml PO DAILY PRN constipation Unknown History oral suspension sennosides 8.6 mg tablet (senna) 8.6 mg PO DAILY 03/21/25 Unknown H istory Allergy/AdvReac Type Severity Reaction Status Date / Time phenytoin Allergy Mild Other Verified 11/07/24 05:21 gabapentin (From Neurontin) Allergy Unknown Unknown Verified 11/07/24 05:21 hydrocodone Allergy Unknown Unknown Verified 11/07/24 05:21 acetaminophen (From (more content not included)... Normal [facility] Eosinophil percentageOrdered By: Ian Starr on 03-21-2025 Eosinophils/100 WBC (Bld) 0.6 % 0-5 [facility] Erythrocyte distribution wid th ratioOrdered By: Ian Starr on 03-21-2025 Erythrocyte distribution width (RBC) [Ratio] 12.2 % 11.6-14.6 [facility] Erythrocyte distribution wid th standard deviationOrdered By: Ian Starr on 03-21-2025 Erythrocyte distribution width (RBC) [Ratio] 38.5 fl 35.1-43.9 [facility] Glomerular filtration rate ( GFR) estimation/1.73 sq m using serum, plasma, or whole bOrdered By: Ian Starr on 03-21-2025 GFR/1.73 sq M.predicted among non-blacks MDRD (S/P/Bld) [Vol rate/Area] 46 mL/min/{1.73_m2} Low >60 [facility] Comment on above: mL/min/1.73m2 CKD-EP I Creatinine Equation (2020) Hematocrit Auto (Bld) [Volum e fraction]Ordered By: Ian Starr on 03-21-2025 Hematocrit (Bld) [Volume fraction] 40.8 % 37-47 [facility] Hemoglobin measurementOrdere d By: Ian Starr on 03-21-2025 Hemoglobin (Bld) [Mass/Vol] 14.2 g/dL 12.0-15.0 [facility] Hyaline casts LM.LPF (Urine sed) [#/Area]Ordered By: Ian Starr on 03-21-2025 Hyaline casts (Urine sed) [#/Area] 0 /[LPF] 0-5 [facility] Immature granulocytes/100 WB C Auto (Bld)Ordered By: Ian Starr on 03-21-2025 Immature granulocytes/100 WBC (Bld) 0.600 % 0.0-0.9 [facility] Comment on above: IG% - Immature Granu locytes (promyelocytes, myelocytes and metamyelocytes) > 1% indicates that a LEFT SHIFT is Present. Ketones Test strip Ql (U)Ord ered By: Ian Starr on 03-21-2025 Ketones Ql (U) Negative Negative [facility] Lactic Acidon 03-21-2025 Lactate [Moles/Vol] mmol/L Normal 0.0-2.0 [facility] Comment on above: Order Comment: Y Performed By: #### L 500.2500, L100.0100 #### [facility] [place], [address] Lactic acid measurementOrder ed By: Ian Starr on 03-21-2025 Lactate [Moles/Vol] mmol/L 0.0-2.0 [facility] MCV (mean corpuscular volume ) determinationOrdered By: Ian Starr on 03-21-2025 MCV (RBC) [Entitic vol] 86.4 fL 81-99 [facility] Magnesiumon 03-21-2025 Magnesium [Mass/Vol] 2.0 mg/dL Normal 1.5-2.2 [facility] Comment on above: Performed By: #### L 500.2500, L501.8100, L501.5200, L100.0100 #### [facility] [address] [place], [address] Magnesium measurement (mass/ volume)Ordered By: Ian Starr on 03-21-2025 Magnesium (Unsp spec) [Mass/Vol] 2.0 mg/dL 1.5-2.2 [facility] Mean corpuscular hemoglobin (MCH) determinationOrdered By: Ian Starr on 03-21-2025 MCH (RBC) [Entitic mass] 30.1 pg 27.0-32.0 [facility] Mean corpuscular hemoglobin concentration (MCHC) determinationOrdered By: Ian Starr on 03-21-2025 MCHC (RBC) [Mass/Vol] 34.8 g/dL 32-36 [facility] Mean platelet volume determi nationOrdered By: Ian Starr on 03-21-2025 Platelet mean volume (Bld) [Entitic vol] 10.0 fL 6.2-12.0 [facility] Microscopic analysis of urin e for red blood cells (RBC)Ordered By: Ian Starr on 03-21-2025 Microscopic analysis of urine for red blood cells (RBC) 0 SEEN /hpf 0-5 [facility] Monocyte percentageOrdered B y: aIn Starr on 03-21-2025 Monocytes/100 WBC (Bld) 9.0 % 0-10 [facility] Mucus LM Ql (Urine sed)Order ed By: Ian Starr on 03-21-2025 Mucus Ql (Urine sed) 0 SEEN /hpf [facility] Neutrophil percentageOrdered By: Ian Starr on 03-21-2025 Neutrophils/100 WBC (Bld) 66.0 % 47-70 [facility] Nitrite Test strip Ql (U)Ord ered By: Ian Starr on 03-21-2025 Nitrite Ql (U) Negative Negative [facility] Nucleated red blood cell per centageOrdered By: Ian Starr on 03-21-2025 Nucleated RBC/100 WBC (Bld) [Ratio] 0 % 0-5 [facility] Platelet countOrdered By: Kika Starr on 03-21-2025 Platelets (Bld) [#/Vol] 109 10*3/uL Low 150-450 [facility] Potassium measurement (mass/ volume)Ordered By: Ian Starr on 03-21-2025 Potassium (Unsp spec) [Mass/Vol] 4.5 mmol/L 3.3-5.1 [facility] Protein Test strip Ql (U)Ord ered By: Ian Starr on 03-21-2025 Protein Ql (U) 30 mg/dl High Negative [facility] RBC Auto (Bld) [#/Vol]Ordere d By: Ian Starr on 03-21-2025 RBC (Bld) [#/Vol] 4.72 10*6/uL 4.2-5.4 [facility] Serum creatinine measurement (mass/volume)Ordered By: Ian Starr on 03-21-2025 Creatinine [Mass/Vol] 1.39 mg/dL High 0.70-1.20 [facility] Serum glucose measurement (m ass/volume)Ordered By: Ian Starr on 03-21-2025 Glucose [Mass/Vol] 93 mg/dL 70-99 [facility] Serum or plasma calcium flores urement (mass/volume)Ordered By: Ian Starr on 03-21-2025 Calcium [Mass/Vol] 9.2 mg/dL 7.6-11.0 [facility] Serum or plasma urea nitroge n measurement (mass/volume)Ordered By: Ian Starr on 03-21-2025 Urea nitrogen [Mass/Vol] 33 mg/dL High 4-19 [facility] Serum or plasma valproate me asurement (mass/volume)Ordered By: Ian Starr on 03-21-2025 Valproate [Mass/Vol] 24 ug/mL Low 50-100 [facility] Comment on above: Valproic Acid concen trations >100 ug/mL are potentially toxic. Sodium levelOrdered By: Adrian Starr on 03-21-2025 Sodium [Moles/Vol] 138 mmol/L 133-145 [facility] Squamous epithelial cells de tection in urine sediment by light microscopyOrdered By: Ian Starr on 03-21-2025 Epithelial cells.squamous LM Ql (Urine sed) 0-5 SEEN /hpf 5-10 [facility] Urinalysis, Completeon 03-21 CAST,HYALINE 0-5 SEEN Normal 0-5 [facility] Comment on above: Order Comment: COLLE CTOR TO SPECIFY Performed By: #### L 500.2500, L100.0100 #### [facility] [address] [place], [address] EPI,SQUAMOUS 0-5 SEEN Normal 5-10 [facility] Comment on above: Order Comment: AVERY CTOR TO SPECIFY Performed By: #### L 500.2500, L100.0100 #### [facility] [address] [place], [address] WBC 0-5 SEEN Normal 0-5 [facility] Comment on above: Order Comment: AVERY CTOR TO SPECIFY Performed By: #### L 500.2500, L100.0100 #### [facility] [address] [place], [address] BACTERIA 0 SEEN Normal None Seen [facility] Comment on above: Order Comment: AVERY CTOR TO SPECIFY Performed By: #### L 500.2500, L100.0100 #### [facility] [address] [place], [address] Mucus Ql (Urine sed) 0 SEEN Normal [facility] Comment on above: Order Comment: COLLE CTOR TO SPECIFY Performed By: #### L 500.2500, L100.0100 #### [facility] [address] [place], [address] RBC 0 SEEN Normal 0-5 [facility] Comment on above: Order Comment: COLLE CTOR TO SPECIFY Performed By: #### L 500.2500, L100.0100 #### [facility] [address] [place], [place], [id number] Urine clarityOrdered By: Murali Starr on 03-21-2025 Clarity (U) Clear Clear [facility] Urine color determinationOrd ered By: Ian Starr on 03-21-2025 Color (U) Yellow Yellow [facility] Urine glucose detectionOrder ed By: Ian Starr on 03-21-2025 Glucose Ql (U) Normal mg/dl Normal [facility] Urine leukocyte esterase det ection by dipstickOrdered By: Ian Starr on 03-21-2025 Leukocyte esterase Test strip Ql (U) Negative Negative [facility] Urine pHOrdered By: Ian Starr on 03-21-2025 pH (U) 6.0 [pH] 5.0 - 8.0 [facility] Urine sediment bacteria coun t by microscopy (number/high power field)Ordered By: Ian Starr on 03-21-2025 Bacteria LM.HPF (Urine sed) [#/Area] 0 /[HPF] None Seen [facility] Urine specific gravity measu rementOrdered By: Ian Starr on 03-21-2025 Specific gravity (U) [Rel density] 1.015 1.002-1.030 [facility] Urine urobilinogen measureme ntOrdered By: Ian Starr on 03-21-2025 Urobilinogen Ql (U) Normal mg/dl Normal [facility] Valproic Acid (Depakene) Lev woody 03-21-2025 VALPROIC ACID 24 ug/mL Low 50-100 [facility] Comment on above: Result Comment: Valp roic Acid concentrations >100 ug/mL are potentially toxic. Performed By: #### L 500.2500, L501.8100, L501.5200, L100.0100 #### [facility] [address] [place], [place], [id number] White blood cell (WBC) count Ordered By: Ian Starr on 03-21-2025 WBC (Bld) [#/Vol] 4.7 10*3/uL 4.4-11.0 [facility] White blood cell countOrdere d By: Ian Starr on 03-21-2025 White blood cell count 0-5 SEEN /hpf 0-5 [facility] 30on 03-15-2025 30 Problem: Knowledge Deficit Goal: Patient/family/caregive r demonstrates understanding of disease process, treatment plan, medications, and discharge instructions Outcome: Adequate for Discharge Problem: Potential for Compromised Skin Integrity Goal: Skin Integrity is Maintained or Improved Outcome: Adequate for Discharge Problem: Urinary Incontinence Goal: Perineal skin integrity is maintained or improved Outcome: Adequate for Discharge Normal [facility] [id number] 03-15-2025 [phone] Transport requested in [employer]. Awaiting time confirmation. Confirmed pickup time of 2:00PM by transport company [employer] at phone number . Location of facility drop off is [facility]. Facility notified via [employer], Ivelisse Duran notified on secure chat. Normal [facility] [phone] Cont's EEG completed . Care team messaged. DC order /Mar completed. MICHAEL completed. [employer] tasked to send to transport for 2:00 PM today to return [facility] [address] Called facility w picker and sorter load and unload time. Normal [facility] COMPREHENSIVE METABOLIC PANE Rock 03-15-2025 Albumin [Mass/Vol] 3.2 g/dL Low 3.5-5.0 [facility] Comment on above: Performed By: #### L [id number] ####Contact Center Manager: CORNELIA BARRAGAN ([phone])[facility] ([facility])[address] [place] [address] ALP [Catalytic activity/Vol] 103 U/L Normal 40-150 [facility] Comment on above: Performed By: #### L AB17 ####Contact Center Manager: CORNELIA BARRAGAN ([phone])[facility] ([facility])[address] [place] [address] ALT [Catalytic activity/Vol] 21 U/L Normal <30 [facility] Comment on above: Performed By: #### L AB17 ####Contact Center Manager: CORNELIA BARRAGAN ([phone])[facility] ([facility])[address] [place] [address] Anion gap [Moles/Vol] 9 mmol/L Normal 3-13 [facility] Comment on above: Performed By: #### L AB17 ####Contact Center Manager: CORNELIA BARRAGAN ([phone])[facility] [place] [address] [place] AST [Catalytic activity/Vol] 28 U/L Normal <34 [facility] Comment on above: Performed By: #### L AB17 ####Contact Center Manager: CORNELIA BARRAGAN ([phone])[facility] ([facility])[address] [place] [address] Bilirubin [Mass/Vol] 0.2 mg/dL Normal <1.2 [facility] Comment on above: Performed By: #### L AB17 ####Contact Center Manager: CORNELIA BARRAGAN ([phone])[facility] [place] [address] Calcium [Mass/Vol] 8.9 mg/dL Normal 8.4-10.2 [facility] Comment on above: Performed By: #### L AB17 ####Contact Center Manager: CORNELIA BARRAGAN ([phone])[facility] [place] [address] [place] Chloride [Moles/Vol] 105 mmol/L Normal 98-107 [facility] Comment on above: Performed By: #### L AB17 ####Contact Center Manager: CORNELIA BARRAGAN ([phone])[facility] [place] [address] [place] CO2 [Moles/Vol] 24 mmol/L Normal 22-29 [facility] Comment on above: Performed By: #### L AB17 ####Contact Center Manager: CORNELIA BARRAGAN ([phone])[facility] [place] [address] [place] Creatinine [Mass/Vol] 1.28 mg/dL High 0.57-1.11 [facility] Comment on above: Performed By: #### L AB17 ####Contact Center Manager: CORNELIA BARRAGAN ([phone])[facility])[address] [place] [address] GLOMERULAR FILTRATION RATE ML/MIN/1.73 SQ M.PREDICTED 50.8 mL/min/1.73m*2 Low >60.0 [facility] Comment on above: Result Comment: Calc ulation based on the Chronic Kidney Disease Epidemiology Collaboration (CKD-EPI) equation refit without adjustment for race Performed By: #### L AB17 ####Contact Center Manager: CORNELIA BARRAGAN ([phone])[facility])[address] [place] [address] Glucose [Mass/Vol] 86 mg/dL Normal 74-100 [facility] Comment on above: Performed By: #### L AB17 ####Contact Center Manager: CORNELIA BARRAGAN ([phone])[address] Potassium [Moles/Vol] 4.9 mmol/L Normal 3.5-5.1 [facility] Comment on above: Result Comment: [facility] potassium values may be up to 0.5 mmol/L lower than serum values. Performed By: #### L AB17 ####Contact Center Manager: CORNELIA BARRAGAN ([phone])[facility])[address] [place] [address] Protein [Mass/Vol] 6.5 g/dL Normal 6.4-8.3 [facility] Comment on above: Performed By: #### L AB17 ####Contact Center Manager: CORNELIA BARRAGAN ([phone])[facility])[address] [place] [address] [place] Sodium [Moles/Vol] 138 mmol/L Normal 136-145 [facility] Comment on above: Performed By: #### L AB17 ####Contact Center Manager: CORNELIA BARRAGAN ([phone])[facility])[address] [place] [address] [place] Urea nitrogen [Mass/Vol] 28 mg/dL High 9-23 [facility] Comment on above: Performed By: #### L AB17 ####Contact Center Manager: CORNELIA BARRAGAN ([phone])[facility] ([address] Comprehensive metabolic 1998 panelon 03-15-2025 Albumin [Mass/Vol] 3.2 g/dL Low 3.5 - 5.0 g/dL [facility] ALP [Catalytic activity/Vol] 103 U/L 40 - 150 U/L [facility] ALT [Catalytic activity/Vol] 21 U/L NINF - 30 U/L [facility] Anion gap [Moles/Vol] 9 mmol/L 3 - 13 mmol/L [facility] AST [Catalytic activity/Vol] 28 U/L NINF - 34 U/L [facility] Bilirubin [Mass/Vol] 0.2 mg/dL NINF - 1.2 mg/dL [facility] Calcium [Mass/Vol] 8.9 mg/dL 8.4 - 10. 2 mg/dL [facility] Chloride [Moles/Vol] 105 mmol/L 98 - 10 7 mmol/L [facility] CO2 [Moles/Vol] 24 mmol/L 22 - 29 mmol/L [facility] Creatinine [Mass/Vol] 1.28 mg/dL High 0.57 - 1.11 mg/dL [facility] GFR/1.73 sq M.predicted (S/P/Bld) [Vol rate/Area] 50.8 mL/min Low - PINF [facility] Comment on above: Calculation based on the Chronic Kidney Disease Epidemiology Collaboration (CKD-EPI) equation refit without adjustment for race Glucose [Mass/Vol] 86 mg/dL 74 - 100 mg/dL [facility] Interpretation and review of laboratory results Abnormal [facility] Potassium [Moles/Vol] 4.9 mmol/L 3.5 - 5.1 mmol/L [facility] Comment on above: Plasma potassium haley ues may be up to 0.5 mmol/L lower than serum values. Protein [Mass/Vol] 6.5 g/dL 6.4 - 8.3 g/dL [facility] Sodium [Moles/Vol] 138 mmol/L 136 - 145 mmol/L [facility] Urea nitrogen [Mass/Vol] 28 mg/dL High 9 - 23 mg/dL [facility] Nursing Noteon 03-15-2025 Nursing Note Report called and received by [facility] Progress Noteon 03-15-2025 Progress Note Nutrition rescreen completed. Chart reviewed. Patient to be monitored and followed by the diet agricultural technician. [facility] 30on 03-14-2025 30 Problem: Knowledge Deficit Goal: Patient/family/caregive r demonstrates understanding of disease process, treatment plan, medications, and discharge instructions Outcome: Progressing Problem: Potential for Compromised Skin Integrity Goal: Skin Integrity is Maintained or Improved Outcome: Progressing Goal: Nutritional status is improving Outcome: Progressing Problem: Urinary Incontinence Goal: Perineal skin integrity is maintained or improved Outcome: Progressing [facility] 30 Problem: Knowledge Deficit Goal: Patient/family/caregive r demonstrates understanding of disease process, treatment plan, medications, and discharge instructions Outcome: Progressing Problem: Potential for Compromised Skin Integrity Goal: Skin Integrity is Maintained or Improved Outcome: Progressing Goal: Nutritional status is improving Outcome: Progressing Problem: Urinary Incontinence Goal: Perineal skin integrity is maintained or improved Outcome: Progressing [facility] 30 Problem: Knowledge Deficit Goal: Patient/family/caregive r demonstrates understanding of disease process, treatment plan, medications, and discharge instructions 03/14/2025 0301 by Ruth Topete RN Outcome: Progressing 03/13/20252217 by Ruth Topete RN Outcome: Progressing Problem: Potential for Compromised Skin Integrity Goal: Skin Integrity is Maintained or Improved 03/14/2025 0301 by Ruth Topete RN Outcome: Progressing 03/13/20252217 by Ruth Topete RN Outcome: Progressing Goal: Nutritional status is improving 03/14/2025 0301 by Ruth Topete RN Outcome: Progressing 03/13/20252217 by Ruth Topete RN Outcome: Progressing Problem: Urinary Incontinence Goal: Perineal skin integrity is maintained or improved 03/14/2025 0301 by Ruth Topete RN Outcome: Progressing 03/13/20252217 by Ruth Topete RN Outcome: Progressing [facility] [id number] 03-14-2025 [id number] Pt has Hx of seizure disorder. Was a Direct adm for Cont's EEG. Pt is a resident @ [facility]. Called pt's father, Ko, , for Hx, no answer message left. Called the [facility] [phone], spoke w Floridalma. Plan is for DC temitope when EEG completed. WE will need to arrange transport @[place]. to follow. Normal [facility] COMPREHENSIVE METABOLIC PANE [place] 03-14-2025 Albumin [Mass/Vol] 3.2 g/dL Low 3.5-5.0 [facility] Comment on above: Performed By: #### L AB17 ####Contact Center Manager: CORNELIA BARRAGAN ([phone])[facility])[address] [place] [address] ALP [Catalytic activity/Vol] 124 U/L Normal 40-150 [facility] Comment on above: Performed By: #### L AB17 ####Contact Center Manager: CORNELIA BARRAGAN ([phone])[facility])[address] [place] [address] ALT [Catalytic activity/Vol] 24 U/L Normal <30 [facility] Comment on above: Performed By: #### L AB17 ####Contact Center Manager: CORNELIA BARRAGAN ([phone])[facility])[address] [place] [address] Anion gap [Moles/Vol] 12 mmol/L Normal 3-13 [facility] Comment on above: Performed By: #### L AB17 ####Contact Center Manager: CORNELIA BARRAGAN ([phone])[facility])[address] [place] [address] AST [Catalytic activity/Vol] 31 U/L Normal <34 [facility] Comment on above: Performed By: #### L AB17 ####Contact Center Manager: CORNELIA BARRAGAN ([phone])[facility])[address] [place] [address] [place] Bilirubin [Mass/Vol] 0.2 mg/dL Normal <1.2 [facility] Comment on above: Performed By: #### L AB17 ####Contact Center Manager: CORNELIA BARRAGAN ([phone])[facility] ([facility])[address] [place] [address] Calcium [Mass/Vol] 8.7 mg/dL Normal 8.4-10.2 [facility] Comment on above: Performed By: #### L AB17 ####Contact Center Manager: CORNELIA BARRAGAN ([phone])[facility] [place] [address] Chloride [Moles/Vol] 106 mmol/L Normal 98-107 [facility] Comment on above: Performed By: #### L AB17 ####Contact Center Manager: CORNELIA BARRAGAN ([phone])[facility] ([facility])[address] [place] [address] CO2 [Moles/Vol] 20 mmol/L Low 22-29 [facility] Comment on above: Performed By: #### L AB17 ####Contact Center Manager: CORNELIA BARRAGAN ([phone])[facility] ([facility])[address] [place] [address] Creatinine [Mass/Vol] 1.47 mg/dL High 0.57-1.11 [facility] Comment on above: Performed By: #### L AB17 ####Contact Center Manager: CORNELIA BARRAGAN ([phone])[facility])[address] [place] [address] GLOMERULAR FILTRATION RATE ML/MIN/1.73 SQ M.PREDICTED 43.0 mL/min/1.73m*2 Low >60.0 [facility] Comment on above: Result Comment: Calc ulation based on the Chronic Kidney Disease Epidemiology Collaboration (CKD-EPI) equation refit without adjustment for race Performed By: #### L AB17 ####Contact Center Manager: CORNELIA BARRAGAN ([phone])[facility] ([facility])[address] [place] [address] [place] Glucose [Mass/Vol] 95 mg/dL Normal 74-100 [facility] Comment on above: Performed By: #### L AB17 ####Contact Center Manager: CORNELIA BARRAGAN ([phone])[address] Potassium [Moles/Vol] 4.7 mmol/L Normal 3.5-5.1 [facility] Comment on above: Result Comment: [facility] potassium values may be up to 0.5 mmol/L lower than serum values. Performed By: #### L AB17 ####Contact Center Manager: CORNELIA BARRAGAN ([phone])[facility])[address] [place] [address] Protein [Mass/Vol] 6.4 g/dL Normal 6.4-8.3 [facility] Comment on above: Performed By: #### L AB17 ####Contact Center Manager: CORNELIA BARRAGAN ([phone])[address] Sodium [Moles/Vol] 138 mmol/L Normal 136-145 [facility] Comment on above: Performed By: #### L AB17 ####Contact Center Manager: CORNELIA BARRAGAN ([phone])[address] Urea nitrogen [Mass/Vol] 33 mg/dL High 9-23 [facility] Comment on above: Performed By: #### L AB17 ####Contact Center Manager: CORNELIA BARRAGAN ([phone])[address] Comprehensive metabolic 1998 panelon 03-14-2025 Albumin [Mass/Vol] 3.2 g/dL Low 3.5 - 5.0 g/dL [facility] ALP [Catalytic activity/Vol] 124 U/L 40 - 150 U/L [facility] ALT [Catalytic activity/Vol] 24 U/L NINF - 30 U/L [facility] Anion gap [Moles/Vol] 12 mmol/L 3 - 13 mmol/L [facility] AST [Catalytic activity/Vol] 31 U/L NINF - 34 U/L [facility] Bilirubin [Mass/Vol] 0.2 mg/dL NINF - 1.2 mg/dL [facility] Calcium [Mass/Vol] 8.7 mg/dL 8.4 - 10. 2 mg/dL [facility] Chloride [Moles/Vol] 106 mmol/L 98 - 10 7 mmol/L [facility] CO2 [Moles/Vol] 20 mmol/L Low 22 - 29 mmol/L [facility] Creatinine [Mass/Vol] 1.47 mg/dL High 0.57 - 1.11 mg/dL [facility] GFR/1.73 sq M.predicted (S/P/Bld) [Vol rate/Area] 43 mL/min Low - PINF [facility] Comment on above: Calculation based on the Chronic Kidney Disease Epidemiology Collaboration (CKD-EPI) equation refit without adjustment for race Glucose [Mass/Vol] 95 mg/dL 74 - 100 mg/dL [facility] Interpretation and review of laboratory results Abnormal [facility] Potassium [Moles/Vol] 4.7 mmol/L 3.5 - 5.1 mmol/L [facility] Comment on above: Plasma potassium haley ues may be up to 0.5 mmol/L lower than serum values. Protein [Mass/Vol] 6.4 g/dL 6.4 - 8.3 g/dL [facility] Sodium [Moles/Vol] 138 mmol/L 136 - 145 mmol/L [facility] Urea nitrogen [Mass/Vol] 33 mg/dL High 9 - 23 mg/dL [facility] Creatinine (U) [Mass/Vol]Ord ered By: Luis Vázquez on 03-14-2025 CREATININE, URINE 51.1 mg/dL 47.0 - 110 .0 mg/dL [facility] Interpretation and review of laboratory results Normal [facility] Concentration is bas ed on a daily urine output of 1.5 L. [facility] LEVETIRACETAM LEVEL (BKR QUE [facility])on 03-14-2025 [facility] LEVETIRACETAM, IMMUNOASSAY 25.3 mcg/mL Normal 6.0-46.0 [facility] Comment on above: Result Comment: Brivaracetam (Briviact(R), Rikelta(R)) exhibits significant cross-reactivity in the Levetiracetam (Keppra(R), Spritam(R)) immunoassay. If Brivaracetam has been prescribed, order test code 54057 Levetiracetam by LCMSMS. Test Performed by Faizan Mathur, [facility], [address] [place] [address] Xuan Samuel M.D., Ph.D., Director of Laboratories , CLIA [id number] Performed By: #### L [id number], [id number] ####[facility] (AMDBEAKER)[address] [place], [place] [facility] Laboratory - Chemistry and C hemistry - challengeon 03-14-2025 Urea nitrogen (U) [Mass/Vol] 471 mg/dL [facility] [employer] No Panel Informationon 03-14 CREATININE, URINE 51.1 mg/dL 47.0 - 110 .0 mg/dL [facility] UREA (BUN), URINE, FRACTIONAL EXCRETION 41.1 [facility] Comment on above: Fractional excretion of urea under 35% is consistent with a prerenal cause. UREA (BUN), URINE, TUBULAR REABSORPTION 0.6 [facility] PRIMIDONE AND METABOLITEon 0 03-14-2025 PHENOBARBITAL-ARUP 19.5 ug/mL Normal 15.0-40.0 [facility] Comment on above: Result Comment: Perf ormed By: [employer] [address] [place] [address] [employer]: Ismael Castellon MD, PhD CLIA Number: [id number] Performed By: #### L [id number] ####[facility] (AR)[address] [place] [address] [facility] PRIMIDONE (MYSOLINE) 8.5 ug/mL Normal 5.0-12.0 [facility] [employer] [facility] Comment on above: Result Comment: INTE RPRETIVE INFORMATION: Primidone and Metabolite Primidone concentrations greater than 15 ug/mL in conjunction with therapeutic levels of phenobarbital may be associated with toxicity. Phenobarbital 0-2 months Toxic: 40.1 or greater 3 months and older Toxic: 50.1 or greater Performed By: #### L [id number] ####[facility] ([facility]UP)[address] [place] [address] [facility] Progress Noteon 03-14-2025 Progress Note PHYSICAL THERAPY [facility] Name/MRN: Adore Shah ([id number]) Date: 03/14/2025 Pt states she has left foot pain and they are going to do an xray to see if she broke her left foot. She is currently on a continuous EEG. PT held at this time. Fannie Cross, PT Normal [facility] UREA NITROGEN, URINEon 03-14 CREATININE, URINE 51.1 mg/dL Normal 47.0-110.0 [facility] Comment on above: Performed By: #### L [id number], [id number] ####Contact Center Manager: CORNELIA BARRAGAN ([phone])[address] Result Comment: ORDE R COMMENTS: Concentration is based on a daily urine output of 1.5 L. UREA (BUN), URINE, FRACTIONAL EXCRETION 41.[address] [facility] Comment on above: Result Comment: Frac tional excretion of urea under 35% is consistent with a prerenal cause. Performed By: #### L [id number], [id number] ####Contact Center Manager: CORNELIA BARRAGAN ([phone])[address] UREA (BUN), URINE, TUBULAR REABSORPTION 0.6 Normal [facility] Comment on above: Performed By: #### L [id number], [id number] ####Contact Center Manager: CORNELIA BARRAGAN ([phone])[address] UREA NITROGEN, URINE 471 mg/dL Normal [facility] Comment on above: Performed By: #### L [id number], [id number] ####Contact Center Manager: CORNELIA BARRAGAN ([phone])[facility])[address] [place] [address] VALPROIC ACID TOTAL AND FREE (BKR [facility])on 03-14-2025 [facility] VALPROIC ACID 42.5 mg/L Low 50.0-100.0 [facility] Comment on above: Result Comment: Test Performed by Faizan Mathur, [employer], [address] [place] [address] Xuan Samuel M.D., Ph.D., Director of Laboratories , CLIA [id number] Performed By: #### L [id number], [id number] ####[facility] ([employer] PharmaceuticalsBEAKER)[address] [place], [facility]ST VALPROIC ACID, FREE 4.4 mg/L Low 4.8-17.3 [facility] Comment on above: Result Comment: Note: Non-linear drug binding properties result in the fraction of Free Valproic Acid increasing as total drug increases. The free fraction may range from 5% to 25% for the total drug range of 30-160 mg/L. Performed By: #### L [id number], [id number] ####[facility] ([employer]aceuticalsBEAKER)[address] [place] [facility] XR FOOT 1-2 VIEWS LEFTon XR FOOT 1-2 VIEWS LEFT Patient Name: REEMA SHAH : 1975 Exam Date/Time: 03/14/2025 14:19 Procedure: XR FOOT 1-2 VIEWS LEFT Ordering Provider: PEREZ YANGYANG Reason For Exam: Fracture, foot EXAM: XR Left Foot, 2 Views CLINICAL INDICATION: Fracture, foot. History of foot fracture in September 2024. Left foot pain. TECHNIQUE: Frontal and lateral views of the left foot. COMPARISON: No relevant prior studies available. FINDINGS: BONES/JOINTS: Mild first MTP joint DJD. Minimal degenerative change of the ankle. No acute fracture. No dislocation. SOFT TISSUES: Unremarkable. No radiopaque foreign body. IMPRESSION: No acute osseous abnormality. Report Dictated on Electronically Signed By: Esme Ibanez MD Electronically Signed Date/Time: 03/14/2025 3:10 PM EDT Normal [facility] XR Foot - left 2 Viewson No acute osseous abnormality. Report Dictated on Electronically Signed By: Esme Ibanez MD Electronically Signed Date/Time: 03/14/2025 3:10 PM EDT [facility] Patient Name: REEMA SENIOR : 1975 Exam Date/Time: 03/14/2025 14:19 Procedure: XR FOOT 1-2 VIEWS LEFT Ordering Provider: PEREZ YANGYANG Reason For Exam: Fracture, foot EXAM: XR Left Foot, 2 Views CLINICAL INDICATION: Fracture, foot. History of foot fracture in September 2024. Left foot pain. TECHNIQUE: Frontal and lateral views of the left foot. COMPARISON: No relevant prior studies available. FINDINGS: BONES/JOINTS: Mild first MTP joint DJD. Minimal degenerative change of the ankle. No acute fracture. No dislocation. SOFT TISSUES: Unremarkable. No radiopaque foreign body. [facility] Esme Ibanez M D - 03/14/2025 Patient Name: REEMA SHAH : 1975 Exam Date/Time: 03/14/2025 14:19 Procedure: XR FOOT 1-2 VIEWS LEFT Ordering Provider: PEREZ YANGYANG Reason For Exam: Fracture, foot EXAM: XR Left Foot, 2 Views CLINICAL INDICATION: Fracture, foot. History of foot fracture in September 2024. Left foot pain. TECHNIQUE: Frontal and lateral views of the left foot. COMPARISON: No relevant prior studies available. FINDINGS: BONES/JOINTS: Mild first MTP joint DJD. Minimal degenerative change of the ankle. No acute fracture. No dislocation. SOFT TISSUES: Unremarkable. No radiopaque foreign body. IMPRESSION: No acute osseous abnormality. Report Dictated on Electronically Signed By: Esme Ibanez MD Electronically Signed Date/Time: 03/14/2025 3:10 PM EDT [facility] [employer] Radiology Study observation (narrative) [employer] XR Foot - left 2 ViewsOrdere d By: Emse Ibanez on 03-14-2025 [facility] Work Phone: 30on 03-13-2025 30 Problem: Knowledge Deficit Goal: Patient/family/caregive r demonstrates understanding of disease process, treatment plan, medications, and discharge instructions Outcome: Progressing Problem: Potential for Compromised Skin Integrity Goal: Skin Integrity is Maintained or Improved Outcome: Progressing Goal: Nutritional status is improving Outcome: Progressing Problem: Urinary Incontinence Goal: Perineal skin integrity is maintained or improved Outcome: Progressing Normal [facility] COMPREHENSIVE METABOLIC PANE [place] 03-13-2025 Albumin [Mass/Vol] 3.8 g/dL Normal 3.5-5.0 [facility] Comment on above: Performed By: #### L AB129, [id number] ####Contact Center Manager: CORNELIA BARRAGAN ([phone])[facility])[address] [place] [address] ALP [Catalytic activity/Vol] 143 U/L Normal 40-150 [facility] Comment on above: Performed By: #### L AB129, LAB17 ####Contact Center Manager: CORNELIA BARRAGAN ([phone])[facility] ([facility])[address] [place] [address] ALT [Catalytic activity/Vol] 31 U/L High <30 [facility] Comment on above: Performed By: #### L AB129, LAB17 ####Contact Center Manager: CORNELIA BARRAGAN ([phone])[facility])[address] [place] [address] Anion gap [Moles/Vol] 13 mmol/L Normal 3-13 [facility] Comment on above: Performed By: #### L AB129, LAB17 ####Contact Center Manager: CORNELIA BARRAGAN ([phone])[facility] ([facility])[address] [place] [address] AST [Catalytic activity/Vol] 37 U/L High <34 [facility] Comment on above: Performed By: #### L AB129, LAB17 ####Contact Center Manager: CORNELIA BARRAGAN ([phone])[facility])[address] [place] [address] Bilirubin [Mass/Vol] 0.3 mg/dL Normal <1.2 [facility] Comment on above: Performed By: #### L AB129, LAB17 ####Contact Center Manager: CORNELIA BARRAGAN ([phone])[facility] [place] [address] Calcium [Mass/Vol] 9.9 mg/dL Normal 8.4-10.2 [facility] Comment on above: Performed By: #### L AB129, LAB17 ####Contact Center Manager: CORNELIA BARRAGAN ([phone])[facility] [place] [address] Chloride [Moles/Vol] 104 mmol/L Normal 98-107 [facility] Comment on above: Performed By: #### L AB129, LAB17 ####Contact Center Manager: CORNELIA BARRAGAN ([phone])[facility] [place] [address] CO2 [Moles/Vol] 24 mmol/L Normal 22-29 [facility] Comment on above: Performed By: #### L AB129, LAB17 ####Contact Center Manager: CORNELIA BARRAGAN ([phone])[facility] ([facility])[address] [place] [address] Creatinine [Mass/Vol] 1.65 mg/dL High 0.57-1.11 [facility] Comment on above: Performed By: #### L AB129, LAB17 ####Contact Center Manager: CORNELIA BARRAGAN ([phone])[facility])[address] [place] [address] GLOMERULAR FILTRATION RATE ML/MIN/1.73 SQ M.PREDICTED 37.5 mL/min/1.73m*2 Low >60.0 [facility] Comment on above: Result Comment: Calc ulation based on the Chronic Kidney Disease Epidemiology Collaboration (CKD-EPI) equation refit without adjustment for race Performed By: #### L AB129, LAB17 ####Contact Center Manager: CORNELIA BARRAGAN ([phone])[facility] ([facility])[address] [place] [address] Glucose [Mass/Vol] 116 mg/dL High 74-100 [facility] Comment on above: Performed By: #### L AB129, LAB17 ####Contact Center Manager: CORNELIA BARRAGAN ([phone])[facility] ([facility])[address] [place] [address] Potassium [Moles/Vol] 4.1 mmol/L Normal 3.5-5.1 [facility] Comment on above: Result Comment: [facility] potassium values may be up to 0.5 mmol/L lower than serum values. Performed By: #### L AB129, LAB17 ####Contact Center Manager: CORNELIA BARRAGAN ([phone])[facility] ([facility])[address] [place] [address] Protein [Mass/Vol] 7.6 g/dL Normal 6.4-8.3 [facility] Comment on above: Performed By: #### L AB129, LAB17 ####Contact Center Manager: CORNELIA BARRAGAN ([phone])[facility] ([facility])[address] [place] [address] Sodium [Moles/Vol] 141 mmol/L Normal 136-145 [facility] Comment on above: Performed By: #### L AB129, LAB17 ####Contact Center Manager: CORNELIA BARRAGAN ([phone])[facility] ([facility])[address] [place] [address] Urea nitrogen [Mass/Vol] 38 mg/dL High 9-23 [facility] Comment on above: Performed By: #### L AB129, LAB17 ####Contact Center Manager: CORNELIA BARRAGAN ([phone])[facility] ([facility])[address] [place] [address] Comprehensive metabolic 1998 panelon 03-13-2025 Albumin [Mass/Vol] 3.8 g/dL 3.5 - 5.0 g/dL [facility] ALP [Catalytic activity/Vol] 143 U/L 40 - 150 U/L [facility] ALT [Catalytic activity/Vol] 31 U/L High NINF - 30 U/L [facility] Anion gap [Moles/Vol] 13 mmol/L 3 - 13 mmol/L [facility] AST [Catalytic activity/Vol] 37 U/L High NINF - 34 U/L [facility] Bilirubin [Mass/Vol] 0.3 mg/dL NINF - 1.2 mg/dL [facility] Calcium [Mass/Vol] 9.9 mg/dL 8.4 - 10. 2 mg/dL [facility] Chloride [Moles/Vol] 104 mmol/L 98 - 10 7 mmol/L [facility] CO2 [Moles/Vol] 24 mmol/L 22 - 29 mmol/L [facility] Creatinine [Mass/Vol] 1.65 mg/dL High 0.57 - 1.11 mg/dL [facility] GFR/1.73 sq M.predicted (S/P/Bld) [Vol rate/Area] 37.5 mL/min Low - PINF [facility] Comment on above: Calculation based on the Chronic Kidney Disease Epidemiology Collaboration (CKD-EPI) equation refit without adjustment for race Glucose [Mass/Vol] 116 mg/dL High 74 - 100 mg/dL [facility] Interpretation and review of laboratory results Abnormal [facility] Potassium [Moles/Vol] 4.1 mmol/L 3.5 - 5.1 mmol/L [facility] Comment on above: Plasma potassium haley ues may be up to 0.5 mmol/L lower than serum values. Protein [Mass/Vol] 7.6 g/dL 6.4 - 8.3 g/dL [facility] Sodium [Moles/Vol] 141 mmol/L 136 - 145 mmol/L [facility] Urea nitrogen [Mass/Vol] 38 mg/dL High 9 - 23 mg/dL [facility] Consulton 03-13-2025 Consult Department of Neurological Sciences Section of Epilepsy INITIAL CONSULT NOTE ID: Reema Shah is a 49 y.o. female with history of mood disorder, borderline personality disorder, psoriasis, and epilepsy since Jun 10, 1994 while at the [facility] when she experienced a convulsion. She is admitted for a diagnostic cvEEG. HPI/SUBJECTIVE: She established with our clinic on 10/26/24 at time she was reporting that her last seizure occurred in Sep 2024 (?). She describes it as a brief left hand flexion greater than right in a dystonic posture and then her left arm shakes uncontrollably with inability to talk after stating, I think Im going into a seizure. She reports that when she went to the hospital she had a generalized convulsive event. She was recommended to come to the EMU at that time for medication optimization and diagnostic cvEEG. She follow up on 12/08/24 and reported her last seizure occurred yesterday morning (). She describes it as a brief left hand flexion greater than right in a dystonic posture and then her left arm shakes uncontrollably with inability to talk after stating, I think Im going into a seizure. She was again recommend to come to the EMU. She was seen most recently on 02/19/25. She denies any recurrent seizures. Her current anti-epileptic regimen includes Keppra 500 mg twice daily, Depakote 250 mg in the morning and 500 mg at night, and Primidone 200 mg twice daily. Her most recent lab work (02/02/25) showed a Keppra level of 41 and a valproic acid level of 48. A previously ordered cvEEG/EMU admission has not been completed due to unsuccessful scheduling attempts. OBJECTIVE: Current Medications[1] PHYSICAL EXAM: There were no vitals taken for this visit. Physical Exam Constitutional: Appearance: Normal appearance. HENT: Head: Normocephalic. Cardiovascular: Rate and Rhythm: Normal rate and regular rhythm. Pulses: Normal pulses. Heart sounds: Normal heart sounds. Pulmonary: Effort: Pulmonary effort is normal. Breath sounds: Normal breath sounds. Abdominal: General: Abdomen is flat. Bowel sounds are normal. Palpations: Abdomen is soft. Musculoskeletal: Cervical back: Normal range of motion and neck supple. Skin: General: Skin is warm and dry. Neurological: General: No focal deficit present. Mental Status: She is alert and oriented to person, place, and time. Psychiatric: Mood and Affect: Mood normal. NEUROLOGIC: General Appearance: Well nourished, well developed, no apparent distress. Mental Status Exam: The patient is awake, alert and oriented to person, place and time. They have normal memory, fund of knowledge, attention/concentration and language. Spells 'HOUSE' forward and backward without errors. Verbal memory is normal. Visual memory is normal. Language is fluent with intact comprehension and repetition. Cranial Nerves: II: Pupils: equal, round, and reactive to light III, IV, : extra ocular movements intact, no nystagmus V: Facial sensation: intact to light touch bilaterally VII: Facial strength: symmetric on smile and blink VIII: Hearing: intact to voice/conversation IX: No dysarthria XI: Shoulder shrug: symmetric against gravity Motor: Normal bulk and tone. No atrophy or fasciculations observed. Bilateral tremors observed. Sensory: Bilaterally intact to light touch. Coordination: [id number] dysmetria bilaterally. Reflexes: Deferred. Gait: Unable to assess due to ongoing EEG monitoring. DATA No recent labs. ASSESSMENT AND PLAN Adore is a 49 year old with intractable epilepsy on multiple ASMs. She is admitted to the EMU for a cvEEG to clarify her dx, and optimize her medications. Current ASM Keppra 500 mg twice daily Depakote 250 mg in the morning and 500 mg at night Primidone 200 mg twice daily. For Phase 1.0 orders, please answer the following questions: 1. Are seizures of unclear diagnosis and/or nonepileptic? Yes 2. Is epilepsy surgery being considered and requires video-EEG monitoring for the first phase of testing? No 3. Is this an ictal SPECT admission? No 4. Is the video-EEG recommended to assess daily EEG seizure burden, address new and concerning symptom-sign complex, and/or clarify syndromic epilepsy diagnosis? No 5. Is this patient on the ketogenic diet, modified Atkins' diet, or any other special diet for epilepsy? Is this admission to initiate the ketogenic diet? No PLAN: 1. Will begin continuous video-EEG monitoring with neurochecks q4h and telemetry monitoring in place. 2. Will not modify home ASM dosing for first night. 3. Seizure precautions in place - blue rail pads on all bed rails (not blankets), fall precautions. 4. Lorazepam 1mg only for a generalized tonic-clonic seizures and/or seizures lasting at least 3 minutes. 5. We will continue to follow the patient while in the EMU. Anticipated length of stay: 48-hours. Geovanny Haley (more content not included)... Normal [employer] [facility] - Chemistry and C hemistry - challengeon 03-13-2025 TSH Qn 2.3 m[IU]/L [employer] [facility] THYROID STIMULATING HORMONEo n 03-13-2025 THYROID STIMULATING HORMONE 2.30 uIU/mL Normal 0.35-4.94 [facility] Comment on above: Performed By: #### L AB129, LAB17 ####Contact Center Manager: CORNELIA BARRAGAN ([phone])[facility] ([facility] TSH Qnon 03-13-2025 Interpretation and review of laboratory results Normal [facility] 36on 03-05-[address] Hernandez made aware of patient rescheduling need. Normal [facility] 36 Name of caller: Rosa Elena Contact phone number: [phone] Relationship to Patient: Maddie at [facility] Provider: Dr Hernandez Practice: Neurology Chief Complaint/Reason for Call: Rosa Elena medical receptionist assistant called to advise there is no transportation available for the pt to be admitted for testing on 03/06/25. Rosa Elena was transferred to central scheduling to reschedule. Best time of day caller can be reached: Any Patient advised that office/PCP has 24-48 business hours to return their call: Yes Normal [facility] Office Visiton 02-19-2025 Follow-up visit [id number] Reema Shah 1975 F Date Provider Department Center 02/19/2025 [id number] PEREZ [facility] None Family History Problem Relation Age of Onset Heart disease Mother Parkinson's Disease Mother Dementia Mother Thyroid disease Father Asthma Sister Seizures Sister Asthma Sister Asthma Brother No Known Problems Maternal Grandmother No Known Problems Maternal Grandfather No Known Problems Paternal Grandmother No Known Problems Paternal Grandfather No Known Problems Daughter Family Status - Relation Status Age at Mother Father Alive Sister Alive Sister Alive Brother Alive Maternal Grandmother Maternal Grandfather Paternal Grandmother Paternal Grandfather Daughter Alive Level of Service:40167 [place] OFFICE/OUTPATIENT ESTABLISHED HIGH MDM 40 MIN Reason for Visit and Comments: Follow-up [285641] Seizures [97] - No new seizures to report Normal [facility] Progress Noteon 02-19-2025 Progress Note Department of Neurological Sciences Section of Epilepsy [facility] [address] [facility] [address] Dept: [phone] Dept Loc: [phone] . Visit type: follow-up Reason for Visit: Follow-up and Seizures (No new seizures to report) Objective HPI The patient is a 49 y.o. who lives at [facility] with a PMH significant for mood disorder, borderline personality disorder, psoriasis, and epilepsy since Jun 10, 1994 while at the [facility] when she experienced a convulsion. Previous provider ([facility]) followed her for kidney problems since age 25 now with improved renal function. She reports her last EEG was several years ago. She has been in a wheelchair for 6 years this month. Interval Event: She is here today for follow-up. She was last seen by Dr. Hernandez on 12/08/2024. She reports no new seizures since her last event on 12/07/2024. Her current anti-epileptic regimen includes Keppra 500 mg twice daily, Depakote 250 mg in the morning and 500 mg at night, and Primidone 200 mg twice daily. Her most recent lab work (02/02/25) showed a Keppra level of 41 and a valproic acid level of 48. A previously ordered cvEEG/EMU admission has not been completed due to unsuccessful scheduling attempts. She continues to experience chronic hand shaking and occasional knee shaking, which have been ongoing since her first seizure in 1993. She notes that breathing treatments sometimes help alleviate these symptoms. She currently resides at [facility]. Prior History: Her fall frequency has worsened recently. She is in a motorized wheel chair today. She reports losing her balance, stating she uses a gait belt and walker. Her last seizure occurred yesterday morning (12/07/2024) and prior in Sep 2024 (?). She describes it as a brief left hand flexion greater than right in a dystonic posture and then her left arm shakes uncontrollably with inability to talk after stating, I think Im going into a seizure. She reports that when she went to the hospital she had a generalized convulsive event. Mental Status Exam Appearance: Well dressed, well groomed Behavior: Behaves appropriately during the encounter Social relatedness: Euthymic Speech/Language:The patient demonstrates appropriate tone, prosody, monika, phonetics, and syntax Mood: euthymic Affect: Full and appropriate to topic Orientation: Person, Place, Time and Situation Associations: Intact and linear Hallucinations: None Delusions: None Suicidal Ideation: No suicidal ideation, intent or plan. Homicidal Ideation: No homicidal ideation, intent or plan. Insight: Appropriate Judgment: Appropriate ER VISITS for Seizure: Review of Systems Neurological: Positive for seizures. Allergies Allergen Reactions Gabapentin Nausea And Vomiting and Unknown Hydrocodone-Acetaminoph en Other and Unknown Vomiting Morphine Other, Unknown and Nausea And Vomiting Vomiting Ondansetron Other and Nausea And Vomiting Vomiting Other Phenytoin Unknown Promethazine Other, Unknown and Nausea And Vomiting Sick Acetaminophen Rash Other reaction(s): Rash Azithromycin Rash, Unknown and Nausea And Vomiting Codeine Other, Rash, Unknown and Nausea And Vomiting Vomiting Erythromycin Rash and Unknown Erythromycin Base Rash and Unknown Hydrocodone Rash and Unknown Hydromorphone Rash and Unknown Penicillins Rash and Unknown Tramadol Rash and Unknown Current Outpatient Medications Medication Sig Dispense Refill acetaminophen (Tylenol) 500 MG tablet Take by mouth. allopurinol (Zyloprim) 300 MG tablet Take 100 mg by mouth daily. amLODIPine (Norvasc) 10 MG tablet Take 5 mg by mouth daily. atorvastatin (Lipitor) 20 MG tablet bisacodyl (Dulcolax) 10 MG suppository Insert into the rectum Daily as needed for constipation. busPIRone (Buspar) 10 MG tablet Take by mouth 3 times daily. Calcium + Vitamin D3 600-10 MG-MCG tablet cholecalciferol (Vitamin D-3) 50 MCG (2000 UT) tablet Take 2,000 Units by mouth daily. Cyanocobalamin ER 1000 MCG tablet controlled-release Take 1,000 mcg by mouth in the morning. famotidine (Pepcid) 20 MG tablet guaiFENesin (Humibid 3) 400 MG tablet Take 400 mg by mouth every 6 hours as needed. levothyroxine (Synthroid, Levoxyl) 25 MCG tablet lidocaine (Lidoderm) 5 % patch Apply 1 patch topically Daily as needed for mild pain (1-3). Remove & discard patch within 12 hours or as directed by MD. lisinopril 20 MG tablet loratadine (Claritin) 10 MG tablet Take 10 mg by mouth. LORazepam (Ativan) 1 MG tablet May take 1 tab between noon and 4 pm if needed for tremors 30 tablet 2 LORazepam (Ativan) 2 MG tablet Take 1 tablet (2 mg) by mouth 2 times daily. 8 AM and 8 PM 60 tablet 2 magnesium hydroxide (Milk of Magnesia) 400 MG/5ML suspension Take by mouth Daily as needed for constipation. (more content not included)... [facility] 36on 01-26-2025 36 Spoke with Tanesha and let her know providers message. [facility] 36 Tell them ok, but I am not a fan of her getting that first dose before she is up for the day. Normal [facility] 36 Name of caller: Mckenzie alcala Contact phone number: [phone] Relationship to Patient: Maddie at [facility] Provider: Dr. Chopra Practice: [facility] Chief Complaint/Reason for Call: Tanesha states that she would like to know if the patient could take her LORazepam (Ativan) 2 MG tablet at 6 AM and 6 PM instead of 8 AM and 8 PM so that aligns with her medication pass. Please call and advise. Best time of day caller can be reached: Any Patient advised that office/PCP has 24-48 business hours to return their call: Yes [facility] Office Visiton 01-25-2025 Follow-up visit [id number] Reema Shah 1975 F Date Provider Department Center 01/25/2025 [id number] None Family History Problem Relation Age of Onset Heart disease Mother Parkinson's Disease Mother Dementia Mother Thyroid disease Father Asthma Sister Seizures Sister Asthma Sister Asthma Brother No Known Problems Maternal Grandmother No Known Problems Maternal Grandfather No Known Problems Paternal Grandmother No Known Problems Paternal Grandfather No Known Problems Daughter Family Status - Relation Status Age at Mother Father Alive Sister Alive Sister Alive Brother Alive Maternal Grandmother Maternal Grandfather Paternal Grandmother Paternal Grandfather Daughter Alive Level of Service:16634 [place] OFFICE/OUTPATIENT ESTABLISHED LOW MDM 20 MIN Reason for Visit and Comments: Follow-up [[id number]] Seizures [97] [facility] Progress Noteon 01-25-2025 Progress Note [facility] [address] [facility] [address] Dept: [phone] Dept Loc: [phone] Valentina Chopra MD CHIEF COMPLAINT: Chief Complaint Patient presents with Follow-up Seizures HISTORY OF PRESENT ILLNESS: The patient is a 49 y.o. who returns for seizures and tremors. She reports that she is having a NEW ISSUE: dizziness. She reports that this started recently. If she changes her position or moves her head too quickly, then she gets dizziness. Do you have to be up to have the dizziness or can you have the dizziness when seated or lying down? Yes When you have an attack of dizziness how long does it last? Seconds: vestibular paroxysmia, cardiogenic dizziness (Less than 2 minutes)? Yes Minutes: vertebrobasilar transient ischemic attack (TIA), vestibular migraine, panic disorder, delayed orthostatic hypotension, hypoglycemia (2 min-60 min)? No Hours: vestibular migraine, M?ni?re disease, toxic/metabolic (Over an hour)? No Days: vestibular migraine? Do you feel like things are moving in when you know they are actually still?Yes Do you have otalgia?Both Do you have tinnitus?No If so, which ear? Left/Right Do you get dizzy turning your head? Yes Do you have trouble with dizziness getting up from a chair or from a seat?No Have you had falls?No Is there any vision change with the dizziness?No Do you have headache associated with the dizziness?No Have you had hearing loss with your dizziness? No She thinks she has had seizures since she last saw me. She reorts that she is not doing well without the lorazepam in the afternoon. She reports taht her gait is worse and she is more unsteady. Past Medical History: has a past medical history of Anxiety, Chronic kidney disease, Epilepsy (HCC), Essential hypertension, Gastro-esophageal reflux disease without esophagitis, Hypokalemia, Hypothyroidism, Obesity, Personal history of urinary (tract) infections, Psoriasis, Repeated falls, and Thrombocytopenia ([facility]). Past Surgical History: has a past surgical history that includes Breast reduction. Medications: Current Outpatient Medications: acetaminophen (Tylenol) 500 MG tablet, Take by mouth., Disp: , Rfl: allopurinol (Zyloprim) 300 MG tablet, Take 100 mg by mouth daily., Disp: , Rfl: amLODIPine (Norvasc) 10 MG tablet, Take 5 mg by mouth daily., Disp: , Rfl: atorvastatin (Lipitor) 20 MG tablet, , Disp: , Rfl: benzonatate (Tessalon) 200 MG capsule, Take by mouth., Disp: , Rfl: bisacodyl (Dulcolax) 10 MG suppository, Insert into the rectum Daily as needed for constipation., Disp: , Rfl: busPIRone (Buspar) 10 MG tablet, Take by mouth 3 times daily., Disp: , Rfl: Calcium + Vitamin D3 600-10 MG-MCG tablet, , Disp: , Rfl: calcium carbonate (Tums) 500 MG chewable tablet, Chew 500 mg daily., Disp: , Rfl: clobetasol (Temovate) 0.05 % external solution, Apply to affected areas on scalp BID x 6 weeks Stop using when clear. Repeat as needed for flares. Do not use on face, armpits, groin., Disp: 50 mL, Rfl: 3 clotrimazole-betamethas one (Lotrisone) cream, , Disp: , Rfl: Cyanocobalamin ER 1000 MCG tablet controlled-release, Take 1,000 mcg by mouth in the morning., Disp: , Rfl: desvenlafaxine (Pristiq) 50 MG 24 hr tablet, Take 50 mg by mouth daily. Do not crush, chew, or split., Disp: , Rfl: divalproex (Depakote ER) 250 MG 24 hr tablet, Take 1 tab po QAM and 2 tabs po QPM, Disp: 90 tablet, Rfl: 11 famotidine (Pepcid) 20 MG tablet, , Disp: , Rfl: flurbiprofen (Ansaid) 100 MG tablet, Take by mouth every 8 hours as needed., Disp: , Rfl: guaiFENesin (Humibid 3) 400 MG tablet, Take 400 mg by mouth every 6 hours as needed., Disp: , Rfl: ketoconazole (NIZOral) 2 % shampoo, Use to wash the scalp 3 times weekly allowing to sit 3 minutes before rinsing. May use regular shampoo and condition after., Disp: 120 mL, Rfl: 3 levETIRAcetam (Keppra) 500 MG tablet, Take 1 tablet (500 mg) by mouth 2 times daily., Disp: 60 tablet, Rfl: 0 levothyroxine (Synthroid, Levoxyl) 25 MCG tablet, , Disp: , Rfl: lidocaine (Lidoderm) 5 % patch, Apply 1 patch topically Daily as needed for mild pain (1-3). Remove & discard patch within 12 hours or as directed by MD., Disp: , Rfl: lisinopril 20 MG tablet, , Disp: , Rfl: loperamide (Imodium A-D) 2 MG tablet, Take by mouth as needed for diarrhea., Disp: , Rfl: loratadine (Claritin) 10 MG tablet, Take 10 mg by mouth., Disp: , Rfl: magnesium hydroxide (Milk of Magnesia) 400 MG/5ML suspension, Take by mouth Daily as needed for constipation., Disp: , Rfl: magnesium oxide (Mag-Ox) 400 MG tablet, Take 400 mg by mouth in the morning., Disp: , Rfl: melatonin 10 MG tablet, Take by mouth., Disp: , Rfl: Menthol, Topical Analgesic, (Icy Hot) 5 % patch, Apply topically., Disp: , Rfl: metoprolol tartrate (Lopressor) 25 MG tablet, 2 times daily., Disp: , Rfl: potassium (more content not included)... Normal [facility] Absolute lymphocyte countOrd ered By: Sree Jamison on 12-31-2024 Lymphocytes Auto (Unsp spec) [#/Vol] 1.62 10*3/uL 0.83-4.51 [facility] Absolute neutrophil countOrd ered By: Sree Jamison on 12-31-2024 Neutrophils (Bld) [#/Vol] 3.0 10*3/uL 2.0-7.7 [facility] Anion gap in Serum or Plasma Ordered By: Sree Jamison on 12-31-2024 Anion gap [Moles/Vol] 12 mmol/L 5-15 [facility] Automated lymphocyte count a s percentage of total leukocytesOrdered By: Sree Jamison on 12-31-2024 Lymphocytes/100 WBC Auto (Unsp spec) 30.1 % 19-41 [facility] BUN/creatinine ratioOrdered By: Sree Jamison on 12-31-2024 Urea nitrogen/Creatinine [Mass ratio] 22.4 mg/mg High 10-20 [facility] Basophil percentageOrdered B y: Sree Jamison on 12-31-2024 Basophils/100 WBC (Bld) 0.4 % 0-1 [facility] Bilirubin, totalOrdered By: Sree Jamison on 12-31-2024 Bilirubin [Mass/Vol] 0.20 mg/dL 0.00-1.30 [facility] CBC W/Diff, Automatedon 12-16 Absolute Lymph 1.62 X10 3/uL Normal 0.83-4.51 [facility] Comment on above: Performed By: #### L 500.2500, L100.0100 #### [facility] [address] [place], [address] Absolute Neut 3.0 X10 3/uL Normal 2.0-7.7 [facility] Comment on above: Performed By: #### L 500.2500, L100.0100 #### [facility] [address] [place], [address] Basophils/100 WBC (Bld) 0.4 % Normal 0-1 [facility] Comment on above: Performed By: #### L 500.2500, L100.0100 #### [facility] [address] [place], [address] Eosinophils/100 WBC (Bld) 2.2 % Normal 0-5 [facility] Comment on above: Performed By: #### L 500.2500, L100.0100 #### [facility] [address] [place], [address] Erythrocyte distribution width (RBC) [Ratio] 12.4 % Normal 11.6-14.6 [facility] Comment on above: Performed By: #### L 500.2500, L100.0100 #### [facility] [address] [place], [address] Hematocrit (Bld) [Volume fraction] 44.3 % Normal 37-47 [facility] Comment on above: Performed By: #### L 500.2500, L100.0100 #### [facility] [address] [place], [address] Hemoglobin (Bld) [Mass/Vol] 15.1 g/dL High 12.0-15.0 [facility] Comment on above: Performed By: #### L 500.2500, L100.0100 #### [facility] [address] [place], [address] IG% 1.100 High 0.0-0.9 [facility] Comment on above: Result Comment: IG% - Immature Granulocytes (promyelocytes, myelocytes and metamyelocytes) > 1% indicates that a LEFT SHIFT is Present. Performed By: #### L 500.2500, L100.0100 #### [facility] [address] [place], [address] Lymphocytes/100 WBC (Bld) 30.1 % Normal 19-41 [facility] Comment on above: Performed By: #### L 500.2500, L100.0100 #### [facility] [address] [place], [address] MCH (RBC) [Entitic mass] 30.6 pg Normal 27.0-32.0 [facility] Comment on above: Performed By: #### L 500.2500, L100.0100 #### [facility] [address] [place], [address] MCHC (RBC) [Mass/Vol] 34.1 g/dL Normal 32-36 [facility] Comment on above: Performed By: #### L 500.2500, L100.0100 #### [facility] [address] [place], [address] MCV (RBC) [Entitic vol] 89.7 fL Normal 81-99 [facility] Comment on above: Performed By: #### L 500.2500, L100.0100 #### [facility] [address] [place], [address] Monocytes/100 WBC (Bld) 10.4 % High 0-10 [facility] Comment on above: Performed By: #### L 500.2500, L100.0100 #### [facility] [address] [place], [address] Neutrophils/100 WBC (Bld) 55.8 % Normal 47-70 [facility] Comment on above: Performed By: #### L 500.2500, L100.0100 #### [facility] [address] [place], [address] Nucleated RBC (Bld) [#/Vol] 0 10*3/uL Normal 0-5 [facility] Comment on above: Performed By: #### L 500.2500, L100.0100 #### [facility] [address] [place], [address] Platelet mean volume (Bld) [Entitic vol] 10.3 fL Normal 6.2-12.0 [facility] Comment on above: Performed By: #### L 500.2500, L100.0100 #### [facility] [address] [place], [address] Platelets (Bld) [#/Vol] 121 10*3/uL Low 150-450 [facility] Comment on above: Performed By: #### L 500.2500, L100.0100 #### [facility] [address] [place], [address] RBC (Bld) [#/Vol] 4.94 10*6/uL Normal 4.2-5.4 [facility] Comment on above: Performed By: #### L 500.2500, L100.0100 #### [facility] [address] [place], [address] RDW SD 40.7 fl Normal 35.1-43.9 [facility] Comment on above: Performed By: #### L 500.2500, L100.0100 #### [facility] [address] [place], [address] WBC (Bld) [#/Vol] 5.4 10*3/uL Normal 4.4-11.0 [facility] Comment on above: Performed By: #### L 500.2500, L100.0100 #### [facility] [address] [place], [address] Carbon dioxide, total [Moles /volume] in Central venous bloodOrdered By: Sree Jamison on 12-31-2024 CO2 [Moles/Vol] 23.9 mmol/L 21.0-32.0 [facility] Chloride assayOrdered By: Franklin Jamison on 12-31-2024 Chloride [Moles/Vol] 103 mmol/L 98-108 [facility] Comprehensive Metabolic Prof ilon 12-31-2024 Albumin [Mass/Vol] 4.0 g/dL Normal 3.5-5.0 [facility] Comment on above: Performed By: #### L 500.2500, L100.0100 #### [facility] [address] [place], [address] Albumin/Globulin [Mass ratio] 1.7 {ratio} Normal 0.9-2.4 [facility] Comment on above: Performed By: #### L 500.2500, L100.0100 #### [facility] [address] [place], [address] ALK PHOS 142 U/L High 35-104 [facility] Comment on above: Performed By: #### L 500.2500, L100.0100 #### [facility] [address] [place], [address] ALT [Catalytic activity/Vol] 23 U/L Normal <=34 [facility] Comment on above: Performed By: #### L 500.2500, L100.0100 #### [facility] [address] [place], [address] AST [Catalytic activity/Vol] 27 U/L Normal <=31 [facility] Comment on above: Performed By: #### L 500.2500, L100.0100 #### [facility] [address] [place], [address] Bilirubin [Mass/Vol] 0.20 mg/dL Normal 0.00-1.30 [facility] Comment on above: Performed By: #### L 500.2500, L100.0100 #### [facility] [address] [place], [address] BUN/CRE 22.4 RATIO High 10-20 [facility] Comment on above: Performed By: #### L 500.2500, L100.0100 #### [facility] [address] [place], [address] Calcium [Mass/Vol] 9.3 mg/dL Normal 7.6-11.0 [facility] Comment on above: Performed By: #### L 500.2500, L100.0100 #### [facility] [address] [place], [address] Chloride [Moles/Vol] 103 mmol/L Normal 98-108 [facility] Comment on above: Performed By: #### L 500.2500, L100.0100 #### [facility] [address] [place], [address] CO2 [Moles/Vol] 23.9 mmol/L Normal 21.0-32.0 [facility] Comment on above: Performed By: #### L 500.2500, L100.0100 #### [facility] [address] [place], [address] Creatinine [Mass/Vol] 1.43 mg/dL High 0.70-1.20 [facility] Comment on above: Performed By: #### L 500.2500, L100.0100 #### [facility] [address] [place], [address] GAP 12 Normal 5-15 [facility] Comment on above: Performed By: #### L 500.2500, L100.0100 #### [facility] [address] [place], [address] GFR/1.73 sq M.predicted among non-blacks MDRD (S/P/Bld) [Vol rate/Area] 44 mL/min/{1.73_m2} Low >60 [facility] Comment on above: Result Comment: mL/m in/1.73m2 CKD-EPI Creatinine Equation (2020) Performed By: #### L 500.2500, L100.0100 #### [facility] [address] [place], [address] Globulin (S) [Mass/Vol] 2.3 g/dL Normal 2.2-4.2 [facility] Comment on above: Performed By: #### L 500.2500, L100.0100 #### [facility] [address] [place], [address] Glucose [Mass/Vol] 95 mg/dL Normal 70-99 [facility] Comment on above: Performed By: #### L 500.2500, L100.0100 #### [facility] [address] [place], [address] Potassium [Moles/Vol] 4.9 mmol/L Normal 3.3-5.1 [facility] Comment on above: Performed By: #### L 500.2500, L100.0100 #### [facility] [address] [place], [address] Sodium [Moles/Vol] 139 mmol/L Normal 133-145 [facility] Comment on above: Performed By: #### L 500.2500, L100.0100 #### [facility] [address] [place], [address] T PROT 6.3 g/dL Normal 5.9-8.4 [facility] Comment on above: Performed By: #### L 500.2500, L100.0100 #### [facility] [address] [place], [place], [address] Urea nitrogen [Mass/Vol] 32 mg/dL High 4-19 [facility] Comment on above: Performed By: #### L 500.2500, L100.0100 #### [facility] [address] [place], [address] Eosinophil percentageOrdered By: Sree Jamison on 12-31-2024 Eosinophils/100 WBC (Bld) 2.2 % 0-5 [facility] Erythrocyte distribution wid th ratioOrdered By: Sree Jamison on 12-31-2024 Erythrocyte distribution width (RBC) [Ratio] 12.4 % 11.6-14.6 [facility] Erythrocyte distribution wid th standard deviationOrdered By: Sree Jamison on 12-31-2024 Erythrocyte distribution width (RBC) [Ratio] 40.7 fl 35.1-43.9 [facility] Glomerular filtration rate ( GFR) estimation/1.73 sq m using serum, plasma, or whole bOrdered By: Sree Jamison on 12-31-2024 GFR/1.73 sq M.predicted among non-blacks MDRD (S/P/Bld) [Vol rate/Area] 44 mL/min/{1.73_m2} Low >60 [facility] Comment on above: mL/min/1.73m2 CKD-EP I Creatinine Equation (2020) Hematocrit Auto (Bld) [Volum e fraction]Ordered By: Sree Jamison on 12-31-2024 Hematocrit (Bld) [Volume fraction] 44.3 % 37-47 [facility] Hemoglobin measurementOrdere d By: Sree Jamison on 12-31-2024 Hemoglobin (Bld) [Mass/Vol] 15.1 g/dL High 12.0-15.0 [facility] Immature granulocytes/100 WB C Auto (Bld)Ordered By: Sree Jamison on 12-31-2024 Immature granulocytes/100 WBC (Bld) 1.100 % High 0.0-0.9 [facility] Comment on above: IG% - Immature Granu locytes (promyelocytes, myelocytes and metamyelocytes) > 1% indicates that a LEFT SHIFT is Present. Laboratory - Chemistry and C hemistry - challengeOrdered By: Sree Jamison on 12-31-2024 AST [Catalytic activity/Vol] 27 U/L <32 [facility] MCV (mean corpuscular volume ) determinationOrdered By: Sree Jamison on 12-31-2024 MCV (RBC) [Entitic vol] 89.7 fL 81-99 [facility] Mean corpuscular hemoglobin (MCH) determinationOrdered By: Sree Jamison on 12-31-2024 MCH (RBC) [Entitic mass] 30.6 pg 27.0-32.0 [facility] Mean corpuscular hemoglobin concentration (MCHC) determinationOrdered By: Sree Jamison on 12-31-2024 MCHC (RBC) [Mass/Vol] 34.1 g/dL 32-36 [facility] Mean platelet volume determi nationOrdered By: Sree Jamison on 12-31-2024 Platelet mean volume (Bld) [Entitic vol] 10.3 fL 6.2-12.0 [facility] Monocyte percentageOrdered B y: Sree Jamison on 12-31-2024 Monocytes/100 WBC (Bld) 10.4 % High 0-10 [facility] Neutrophil percentageOrdered By: Sere Jamison on 12-31-2024 Neutrophils/100 WBC (Bld) 55.8 % 47-70 [facility] Nucleated red blood cell per centageOrdered By: Sree Jamison on 12-31-2024 Nucleated RBC/100 WBC (Bld) [Ratio] 0 % 0-5 [facility] Platelet countOrdered By: Franklin Jamison on 12-31-2024 Platelets (Bld) [#/Vol] 121 10*3/uL Low 150-450 [facility] Potassium measurement (mass/ volume)Ordered By: Sree Jamison on 12-31-2024 Potassium (Unsp spec) [Mass/Vol] 4.9 mmol/L 3.3-5.1 [facility] RBC Auto (Bld) [#/Vol]Ordere d By: Sree Jamison on 12-31-2024 RBC (Bld) [#/Vol] 4.94 10*6/uL 4.2-5.4 [facility] Serum creatinine measurement (mass/volume)Ordered By: Sree Jamison on 12-31-2024 Creatinine [Mass/Vol] 1.43 mg/dL High 0.70-1.20 [facility] Serum globulin measurementOr dered By: Sree Jamison on 12-31-2024 Globulin (S) [Mass/Vol] 2.3 g/dL 2.2-4.2 [facility] Serum glucose measurement (m ass/volume)Ordered By: Sree Jamison on 12-31-2024 Glucose [Mass/Vol] 95 mg/dL 70-99 [facility] Serum or plasma alanine stephens otransferase (ALT) measurementOrdered By: Sree Jamison on 12-31-2024 ALT [Catalytic activity/Vol] 23 U/L <35 [facility] Serum or plasma albumin flores urement (mass/volume)Ordered By: Sree Jamison on 12-31-2024 Albumin [Mass/Vol] 4.0 g/dL 3.5-5.0 [facility] Serum or plasma albumin/glob ulin mass ratioOrdered By: Sree Jamison on 12-31-2024 Albumin/Globulin [Mass ratio] 1.7 {ratio} 0.9-2.4 [facility] Serum or plasma alkaline ary sphatase measurementOrdered By: Sree Jamison on 12-31-2024 ALP [Catalytic activity/Vol] 142 U/L High 35-104 [facility] Serum or plasma calcium flores urement (mass/volume)Ordered By: Sree Jamison on 12-31-2024 Calcium [Mass/Vol] 9.3 mg/dL 7.6-11.0 [facility] Serum or plasma urea nitroge n measurement (mass/volume)Ordered By: Sree Jamison on 12-31-2024 Urea nitrogen [Mass/Vol] 32 mg/dL High 4-19 [facility] Sodium levelOrdered By: Sree Jamison on 12-31-2024 Sodium [Moles/Vol] 139 mmol/L 133-145 [facility] Total proteinOrdered By: Cammie Jamison on 12-31-2024 Protein [Mass/Vol] 6.3 g/dL 5.9-8.4 [facility] White blood cell (WBC) count Ordered By: Sree Jamison on 12-31-2024 WBC (Bld) [#/Vol] 5.4 10*3/uL 4.4-11.0 [facility] Office Visiton 12-08-2024 Follow-up visit [id number] Reema Shah Chikis 1975 F Date Provider Department Center 12/08/2024 [id number] SORTO [facility] None Family History Problem Relation Age of Onset Heart disease Mother Parkinson's Disease Mother Dementia Mother Thyroid disease Father Asthma Sister Seizures Sister Asthma Sister Asthma Brother No Known Problems Maternal Grandmother No Known Problems Maternal Grandfather No Known Problems Paternal Grandmother No Known Problems Paternal Grandfather No Known Problems Daughter Family Status - Relation Status Age at Mother Father Alive Sister Alive Sister Alive Brother Alive Maternal Grandmother Maternal Grandfather Paternal Grandmother Paternal Grandfather Daughter Alive Level of Service:77122 [place] OFFICE/OUTPATIENT ESTABLISHED MOD [facility] 30 MIN Reason for Visit and Comments: Follow-up [139880] Seizures [97] - Had a seizures last night lasted 10 minutes Normal [facility] Progress Noteon 12-08-2024 Progress Note Department of Neurological Sciences Section of Epilepsy [facility] [address] [facility] [address] Dept: [phone] Dept Loc: [phone] . Visit type: follow-up Reason for Visit: Follow-up and Seizures (Had a seizures last night lasted 10 minutes ) Objective HPI The patient is a 49 y.o. who lives at [facility] with a PMH significant for mood disorder, borderline personality disorder, psoriasis, and epilepsy since Jun 10, 1994 while at the [facility] when she experienced a convulsion. Previous provider ([facility]) followed her for kidney problems since age 25 now with improved renal function. She reports her last EEG was several years ago. She has been in a wheelchair for 6 years this month. Her fall frequency has worsened recently. She is in a motorized wheel chair today. She reports losing her balance, stating she uses a gait belt and walker. Her last seizure occurred yesterday morning () and prior in Sep 2024 (?). She describes it as a brief left hand flexion greater than right in a dystonic posture and then her left arm shakes uncontrollably with inability to talk after stating, I think Im going into a seizure. She reports that when she went to the hospital she had a generalized convulsive event. Mental Status Exam Appearance: Well dressed, well groomed Behavior: Behaves appropriately during the encounter Social relatedness: Euthymic Speech/Language:The patient demonstrates appropriate tone, prosody, monika, phonetics, and syntax Mood: euthymic Affect: Full and appropriate to topic Orientation: Person, Place, Time and Situation Associations: Intact and linear Hallucinations: None Delusions: None Suicidal Ideation: No suicidal ideation, intent or plan. Homicidal Ideation: No homicidal ideation, intent or plan. Insight: Appropriate Judgment: Appropriate ER VISITS for Seizure: Review of Systems Allergies Allergen Reactions Gabapentin Nausea And Vomiting and Unknown Hydrocodone-Acetaminoph en Other and Unknown Vomiting Morphine Other, Unknown and Nausea And Vomiting Vomiting Ondansetron Other and Nausea And Vomiting Vomiting Other Phenytoin Unknown Promethazine Other, Unknown and Nausea And Vomiting Sick Acetaminophen Rash Other reaction(s): Rash Azithromycin Rash, Unknown and Nausea And Vomiting Codeine Other, Rash, Unknown and Nausea And Vomiting Vomiting Erythromycin Rash and Unknown Erythromycin Base Rash and Unknown Hydrocodone Rash and Unknown Hydromorphone Rash and Unknown Penicillins Rash and Unknown Tramadol Rash and Unknown Current Outpatient Medications Medication Sig Dispense Refill acetaminophen (Tylenol) 500 MG tablet Take by mouth. allopurinol (Zyloprim) 300 MG tablet Take 300 mg by mouth in the morning. amLODIPine (Norvasc) 10 MG tablet Take 10 mg by mouth in the morning. atorvastatin (Lipitor) 20 MG tablet bisacodyl (Dulcolax) 10 MG suppository Insert into the rectum Daily as needed for constipation. busPIRone (Buspar) 10 MG tablet Calcium + Vitamin D3 600-10 MG-MCG tablet calcium carbonate (Tums) 500 MG chewable tablet Chew 500 mg daily. clobetasol (Temovate) 0.05 % external solution Apply to affected areas on scalp BID x 6 weeks Stop using when clear. Repeat as needed for flares. Do not use on face, armpits, groin. 50 mL 3 Cyanocobalamin ER 1000 MCG tablet controlled-release Take 1,000 mcg by mouth in the morning. desvenlafaxine (Pristiq) 50 MG 24 hr tablet Take 50 mg by mouth daily. Do not crush, chew, or split. divalproex (Depakote ER) 250 MG 24 hr tablet Take 1 tab po QAM and 2 tabs po QPM 90 tablet 11 famotidine (Pepcid) 20 MG tablet flurbiprofen (Ansaid) 100 MG tablet Take by mouth every 8 hours as needed. guaiFENesin (Humibid 3) 400 MG tablet Take 400 mg by mouth every 6 hours as needed. ketoconazole (NIZOral) 2 % shampoo Use to wash the scalp 3 times weekly allowing to sit 3 minutes before rinsing. May use regular shampoo and condition after. 120 mL 3 levETIRAcetam (Keppra) 500 MG tablet Take 1 tablet (500 mg) by mouth 2 times daily. 60 tablet 0 levothyroxine (Synthroid, Levoxyl) 25 MCG tablet lisinopril 20 MG tablet loratadine (Claritin) 10 MG tablet Take 10 mg by mouth. LORazepam (Ativan) 1 MG tablet Take 2 tabs po QAM and 1 tab po QPM 90 tablet 2 magnesium hydroxide (Milk of Magnesia) 400 MG/5ML suspension Take by mouth Daily as needed for constipation. magnesium oxide (Mag-Ox) 400 MG tablet Take 400 mg by mouth in the morning. meclizine (Antivert) 25 MG tablet Take 25 mg by mouth 3 times daily as needed. melatonin 10 MG tablet Take by mouth. Menthol, Topical Analgesic, (Icy Hot) 5 % patch Apply topically. metoprolol tartrate (Lopressor) 25 MG tablet 2 times daily. potassium chloride ER (Micro-K) 10 MEQ ER capsule primidone (Mysoline) 50 MG (more content not included)... [facility] 36on 12-07-2024 36 Attempted to call patient about confirming appointment on 12/08/24 no answer left message advised patient to call me back at [phone]. [facility] Emergency Department Summary on 11-07-2024 Emergency Department Summary [facility] Medical Records Department [address] [place] [address] Emergency Department Summary 11/07/24 MR#: [id number] Acct: [id number] Name: REEMA SHAH Rep #: [id number] : 1975 49 From: Ian Starr MD PCP: Dr. Sree Jamison MD Status:REG ER Location: ED HPI History of Present Illness Chief Complaint: Abd Pain Informant: patient and EMS Narrative Narrative: 49-year-old female residing at [facility] states she has been having diffuse periumbilical abdominal pain and constipation since yesterday. She was seen here for it. She was prescribed GoLytely but although she states she drank it, residential states that she refused to drink it. She apparently was calling 911 repeatedly from the residential, nursing there reports that they were trying to keep her from doing this but she continued to do it anyway, they told her she did not need to go back to the ER since she was just here, but she was adamant so EMS is transported her back. Nursing from the residential stated that they called the physician Dr. Jamison who also stated that she did not need to go she just needed to drink the GoLytely that she was refusing to drink. She denies any nausea or vomiting. She denies any problems urinating. She denies any chest pain or shortness of breath. [facility] Medical History (Updated 11/07/24 @ 06:[address] Ian Starr MD) Borderline personality disorder Long-term use of high-risk medication Systolic heart failure Major depressive disorder Tremor History of IA (myocardial infarction) History of TIA (transient ischemic attack) MELQUIADES (obstructive sleep apnea) Separation of muscle (nontraumatic), unspecified site Nonrheumatic mitral (valve) prolapse Hypercholesteremia Fatty liver Edema Diaphragmatic hernia Hirsutism Fracture of nasal bone Insomnia History of UTI Obesity Psoriasis GERD (gastroesophageal reflux disease) CKD (chronic kidney disease) Epileptic seizure, generalized Hypokalemia Hypothyroidism [place] Home Medications ???Medication ???Instructions ???Recorded ???Last Taken ???Type albuterol sulfate 90 mcg/actuation 1 - 2 puff inhalation Q6H PRN PRN 03/05/20 Unknown History aerosol inhaler Sob /Or Wheezing allopurinol 300 mg tablet 300 mg PO DAILY 03/05/20 Unknown History acetaminophen 325 mg capsule 650 mg PO Q4H PRN fever or pain 06/05/21 Unknown History (Tylenol) artifi.tears(hypromello se)(PF) 0.3 2 drp ophthalmic (eye) .Q1HR PRN 06/05/21 Unknown History % eye drops dry eye(s) atorvastatin 20 mg tablet 20 mg PO QHS 06/05/21 Unknown History buspirone 10 mg tablet 10 mg PO TID 06/05/21 Unknown History levothyroxine 25 mcg capsule 25 mcg PO DAILY 06/05/21 Unknown History loratadine 10 mg capsule 10 mg PO QHS 06/05/21 Unknown History meclizine 25 mg tablet 25 mg PO Q8H PRN Vertigo 06/05/21 Unknown History melatonin 5 mg capsule 10 mg PO QHS PRN insomnia 06/05/21 Unknown History potassium chloride 10 mEq 20 meq PO BID 08/26/21 Unknown History capsule,extended release calcium carbonate (Gaby-Gest 200 mg PO DAILY 12/23/21 Unknown History Antacid) cyanocobalamin (vitamin B-12) 1,000 mcg PO DAILY 12/23/21 Unknown History 1,000 mcg tablet guaifenesin 400 mg tablet 400 mg PO Q6H PRN cough 12/23/21 Unknown History menthol 4 % topical gel (Biofreeze 1 applic topical DAILY PRN pain 12/23/21 Unknown History (menthol)) divalproex 250 mg tablet,extended 250 mg PO QAM #30 tabs 08/13/22 Unknown Rx release 24 hr divalproex 500 mg tablet,extended 500 mg PO QHS #30 tabs 08/13/22 Unknown Rx release 24 hr levetiracetam 500 mg tablet 500 mg PO BID #60 tabs 08/13/22 Unknown Rx (Keppra) calcium 600 mg (as 1 tab PO BID 09/26/24 Unknown History carbonate)-vitamin D3 10 mcg (400 unit) tablet desvenlafaxine succinate 50 mg 50 mg PO DAILY 09/26/24 Unknown History tablet,extended release 24 hr famotidine 20 mg tablet 20 mg PO BID 09/26/24 Unknown History lidocaine 5 % topical patch 1 patch topical DAILY 09/26/24 Unknown History lisinopril 20 mg tablet 20 mg PO DAILY 09/26/24 Unknown History magnesium oxide 400 mg (241.3 mg 400 mg PO DAILY 09/26/24 Unknown History magnesium) tablet metoprolol tartrate 25 mg tablet 25 mg PO BID 09/26/24 Unknown History ondansetron 4 mg disintegrating 4 mg PO Q6H PRN nausea and 09/26/24 Unknown Rx tablet vomiting #20 tabs primidone 50 mg tablet 200 mg PO BID 09/26/24 Unknown History lorazepam 1 mg tablet 1 mg PO QHS 10/02/24 Unknown History amlodipine 5 mg tablet 5 mg PO DAILY 11/04/24 Unknown History Allergy/AdvReac Type Severity Reaction Status Date / Time phenytoin Allergy Mild Other Verified 11/07/24 05:21 gabapentin (From Neurontin) Allergy Unknown Unknown Verified 11/07/24 05:21 hydrocodone Allergy Unknow (more content not included)... Normal [facility] Abdomen/Pelvis W IV Cont ONL Yon 11-06-2024 Abdomen/Pelvis W IV Cont ONLY [facility] Imaging Services [address], [place] [id number] Abdomen/Pelvis W IV Cont ONLY MR#: [id number] Acct: [id number] Name: REEMA SHAH Rep #: [id number] : 1975 F 49 From: Son owusu MD PCP: Dr. Sree Jamison MD Status: REG ER Study: Abdomen/Pelvis W IV Cont ONLY Date of Exam: Exam# [id number] Ordering Dr: [place] [id number] STUDY: CT ABDOMEN AND PELVIS WITH CONTRAST REASON FOR EXAM: Female, 49 years old. Lower abd pain RADIATION DOSAGE (If Supplied By Facility): CTDIvol = ( 19.41 ) mGy, DLP = ( 1195.22 ) mGycm TECHNIQUE: Transaxial images were obtained from the dome of the diaphragm to the symphysis pubis without oral contrast. IV 100mL Isovue-300 was administered. Sagittal and coronal images were reconstructed. Individualized dose optimization techniques were used for this CT. COMPARISON: Comparison is made with prior study dated September 26, 2024. FINDINGS: Stable increased interstitial markings at the lung bases suggestive scarring. Stable 7 mm noncalcified nodule in the anterior lateral aspect of the right lower lobe as seen on axial image #1. The visualized portions of the heart are within normal limits. There is decreased attenuation of the liver consistent with steatosis. 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 Normal gallbladder and extrahepatic biliary system. Normal spleen. Normal pancreas. Normal bilateral adrenal glands. Normal right kidney. Normal left kidney. Metallic artifacts are seen at the gastroesophageal junction in comparison with prior hiatal hernia repair. Normal small intestine. Large amount of fecal material is seen in the rectosigmoid colon. There are surgical clips in the region of the appendix consistent with a prior appendectomy. Normal abdominal aorta. Normal inferior vena cava. Normal retroperitoneum. Distended urinary bladder. Normal abdominal wall. Normal osseous structures. CT/Abdomen/Pelvis W IV Cont ONLY IMPRESSION: Stable scarring at the lung bases. Fatty infiltration of the liver. Prior hiatal hernia repair. Electronically Signed: Son Hernandez MD at 13:36 EST Reading Location ID and State: [address] [place] [address] , Service support , CC: Dr. Tim Newby MD; Dr. Sree Jamison MD Machine Shorthand Teacher: Signed Normal [facility] CBC W/Diff, Automatedon 10-19 Absolute Lymph 1.21 X10 3/uL Normal 0.83-4.51 [facility] Comment on above: Performed By: #### L 500.2500, L100.0100 #### [facility] [address] [place], [address] Absolute Neut 7.3 X10 3/uL Normal 2.0-7.7 [facility] Comment on above: Performed By: #### L 500.2500, L100.0100 #### [facility] [address] [place], [address] Basophils/100 WBC (Bld) 0.3 % Normal 0-1 [facility] Comment on above: Performed By: #### L 500.2500, L100.0100 #### [facility] [address] [place], [address] Eosinophils/100 WBC (Bld) 0.5 % Normal 0-5 [facility] Comment on above: Performed By: #### L 500.2500, L100.0100 #### [facility] [address] [place], [address] Erythrocyte distribution width (RBC) [Ratio] 12.1 % Normal 11.6-14.6 [facility] Comment on above: Performed By: #### L 500.2500, L100.0100 #### [facility] [address] [place], [address] Hematocrit (Bld) [Volume fraction] 37.5 % Normal 37-47 [facility] Comment on above: Performed By: #### L 500.2500, L100.0100 #### [facility] [address] [place], [address] Hemoglobin (Bld) [Mass/Vol] 12.8 g/dL Normal 12.0-15.0 [facility] Comment on above: Performed By: #### L 500.2500, L100.0100 #### [facility] [address] [place], [address] IG% 0.600 Normal 0.0-0.9 [facility] Comment on above: Result Comment: IG% - Immature Granulocytes (promyelocytes, myelocytes and metamyelocytes) > 1% indicates that a LEFT SHIFT is Present. Performed By: #### L 500.2500, L100.0100 #### [facility] [address] [place], [address] Lymphocytes/100 WBC (Bld) 13.0 % Low 19-41 [facility] Comment on above: Performed By: #### L 500.2500, L100.0100 #### [facility] [address] [place], [address] MCH (RBC) [Entitic mass] 30.3 pg Normal 27.0-32.0 [facility] Comment on above: Performed By: #### L 500.2500, L100.0100 #### [facility] [address] [place], [address] MCHC (RBC) [Mass/Vol] 34.1 g/dL Normal 32-36 [facility] Comment on above: Performed By: #### L 500.2500, L100.0100 #### [facility] [address] [place], [address] MCV (RBC) [Entitic vol] 88.9 fL Normal 81-99 [facility] Comment on above: Performed By: #### L 500.2500, L100.0100 #### [facility] [address] [place], [address] Monocytes/100 WBC (Bld) 7.3 % Normal 0-10 [facility] Comment on above: Performed By: #### L 500.2500, L100.0100 #### [facility] [address] [place], [address] Neutrophils/100 WBC (Bld) 78.3 % High 47-70 [facility] Comment on above: Performed By: #### L 500.2500, L100.0100 #### [facility] [address] [place], [address] Nucleated RBC (Bld) [#/Vol] 0 10*3/uL Normal 0-5 [facility] Comment on above: Performed By: #### L 500.2500, L100.0100 #### [facility] [address] [place], [address] Platelet mean volume (Bld) [Entitic vol] 10.7 fL Normal 6.2-12.0 [facility] Comment on above: Performed By: #### L 500.2500, L100.0100 #### [facility] [address] [place], [address] Platelets (Bld) [#/Vol] 111 10*3/uL Low 150-450 [facility] Comment on above: Performed By: #### L 500.2500, L100.0100 #### [facility] [address] [place], [address] RBC (Bld) [#/Vol] 4.22 10*6/uL Normal 4.2-5.4 [facility] Comment on above: Performed By: #### L 500.2500, L100.0100 #### [facility] [address] [place], [address] RDW SD 38.5 fl Normal 35.1-43.9 [facility] Comment on above: Performed By: #### L 500.2500, L100.0100 #### [facility] [address] [place], [address] WBC (Bld) [#/Vol] 9.3 10*3/uL Normal 4.4-11.0 [facility] Comment on above: Performed By: #### L 500.2500, L100.0100 #### [facility] [address] [place], [address] Comprehensive Metabolic Prof ilon 11-06-2024 Albumin [Mass/Vol] 3.1 g/dL Low 3.2-5.0 [facility] Comment on above: Performed By: #### L 500.2500, L100.0100 #### [facility] [address] [place], [address] Albumin/Globulin [Mass ratio] 0.9 {ratio} Normal 0.9-2.4 [facility] Comment on above: Performed By: #### L 500.2500, L100.0100 #### [facility] [address] [place], [address] ALK P 128 U/L High 45-117 [facility] Comment on above: Performed By: #### L 500.2500, L100.0100 #### [facility] [address] [place], [address] ALT [Catalytic activity/Vol] 28 U/L Normal 13-56 [facility] Comment on above: Performed By: #### L 500.2500, L100.0100 #### [facility] [address] [place], [address] AST [Catalytic activity/Vol] 27 U/L Normal 15-37 [facility] Comment on above: Performed By: #### L 500.2500, L100.0100 #### [facility] [address] [place], [address] Bilirubin [Mass/Vol] 0.30 mg/dL Normal 0.20-1.00 [facility] Comment on above: Result Comment: For patients on eltrombopag therapy, use of Dimension [place] TBIL is not recommended. Performed By: #### L 500.2500, L100.0100 #### [facility] [address] [place], [address] BUN/CRE 21.1 RATIO High 10-20 [facility] Comment on above: Performed By: #### L 500.2500, L100.0100 #### [facility] [address] [place], [address] CA,Total 8.7 mg/dL Normal 8.5-10.1 [facility] Comment on above: Performed By: #### L 500.2500, L100.0100 #### [facility] [address] [place], [address] Chloride [Moles/Vol] 102 mmol/L Normal 98-107 [facility] Comment on above: Performed By: #### L 500.2500, L100.0100 #### [facility] [address] [place], [address] CO2 [Moles/Vol] 22.0 mmol/L Normal 21.0-32.0 [facility] Comment on above: Performed By: #### L 500.2500, L100.0100 #### [facility] [address] [place], [address] Creatinine [Mass/Vol] 1.23 mg/dL High 0.55-1.02 [facility] Comment on above: Result Comment: The validity of the calculated GFR GFRAA in patients over 70 years has not been determined. Clinical correlation is essential. Performed By: #### L 500.2500, L100.0100 #### [facility] [address] [place], [address] ECRCL 51.06 ml/min Normal [facility] Comment on above: Performed By: #### L 500.2500, L100.0100 #### [facility] [address] [place], [address] EST GFR - AA 59 mL/min Low >60 [facility] Comment on above: Result Comment: Afri can Stateless GFR Calc Performed By: #### L 500.2500, L100.0100 #### [facility] [address] [place], [address] GAP 6 Normal 5-15 [facility] Comment on above: Performed By: #### L 500.2500, L100.0100 #### [facility] [address] [place], [address] GFR/1.73 sq M.predicted among non-blacks MDRD (S/P/Bld) [Vol rate/Area] 49 mL/min/{1.73_m2} Low >60 [facility] Comment on above: Result Comment: Non- GFR Calc Performed By: #### L 500.2500, L100.0100 #### [facility] [address] [place], [address] Globulin (S) [Mass/Vol] 3.6 g/dL Normal 2.2-4.2 [facility] Comment on above: Performed By: #### L 500.2500, L100.0100 #### [facility] [address] [place], [address] Glucose [Mass/Vol] 100 mg/dL Normal 74-106 [facility] Comment on above: Result Comment: Fast ing Glucose result from 100 to 125 mg/dL suggests IMPAIRED HOMEOSTASIS per A.D.A. criteria. Performed By: #### L 500.2500, L100.0100 #### [facility] [address] [place], [address] Potassium [Moles/Vol] 4.6 mmol/L Normal 3.5-5.1 [facility] Comment on above: Performed By: #### L 500.2500, L100.0100 #### [facility] [address] [place], [address] Sodium [Moles/Vol] 130 mmol/L Low 136-145 [facility] Comment on above: Performed By: #### L 500.2500, L100.0100 #### [facility] [address] [place], [address] T PROT 6.7 g/dL Normal 6.4-8.2 [facility] Comment on above: Performed By: #### L 500.2500, L100.0100 #### [facility] [address] [place], [address] Urea nitrogen [Mass/Vol] 26 mg/dL High 7-18 [facility] Comment on above: Performed By: #### L 500.2500, L100.0100 #### [facility] [address] [place], [address] Emergency Department Summary on 11-06-2024 Emergency Department Summary [facility] Medical Records Department [address] [place] [address] Emergency Department Summary 11/06/24 MR#: [id number] Acct: [id number] Name: REEMA SHAH Rep #: [id number] : 1975 49 From: Tim Newby MD PCP: Dr. Sree Jamison MD Status:DEP ER Location: ED HPI HPI - GI History of Present Illness Chief Complaint: Abd Pain Informant: patient Abdominal Pain/Flank Pain Onset: Today and Hours Context: Gradual Onset Timing: Continuous Location: RLQ and LLQ Current Severity: Mild Maximum Severity: Mild Worsened by: Nothing Relieved by: Nothing Nausea/Vomiting/Emesis GI Symptom: Negative for Nausea or Vomiting Diarrhea/Melena/Hematoc hezia GI Symptom: Negative for Diarrhea, Melena or Hematochezia Associated Symptoms Associated Symptoms: Negative for Dysuria, Frequency, Hematuria or Urgency Narrative Narrative: 49-year-old female prior appendectomy with a history of endometriosis. She is also had surgery for reflux. States she is having bilateral lower quadrant abdominal pain and suprapubic discomfort this morning for the last several hours. She describes it as aching. She denies any vomiting or diarrhea. Had a small bowel movement today. Denies any blood. No fever. No dysuria. Prior similar symptoms: Yes Recent Illness/H[facility]ization : [facility] Medical History Long-term use of high-risk medication Systolic heart failure Major depressive disorder Tremor History of IA (myocardial infarction) History of TIA (transient ischemic attack) MELQUIADES (obstructive sleep apnea) Separation of muscle (nontraumatic), unspecified site Nonrheumatic mitral (valve) prolapse Hypercholesteremia Fatty liver Edema Diaphragmatic hernia Hirsutism Fracture of nasal bone Insomnia History of UTI Obesity Psoriasis GERD (gastroesophageal reflux disease) CKD (chronic kidney disease) Epileptic seizure, generalized Hypokalemia Hypothyroidism [place] Medications ???Medication ???Instructions ???Recorded ???Last Taken ???Type albuterol sulfate 90 mcg/actuation 1 - 2 puff inhalation Q6H PRN PRN 03/05/20 Unknown History aerosol inhaler Sob /Or Wheezing allopurinol 300 mg tablet 300 mg PO DAILY 03/05/20 Unknown History acetaminophen 325 mg capsule 650 mg PO Q4H PRN fever or pain 06/05/21 Unknown History (Tylenol) artifi.tears(hypromello se)(PF) 0.3 2 drp ophthalmic (eye) .Q1HR PRN 06/05/21 Unknown History % eye drops dry eye(s) atorvastatin 20 mg tablet 20 mg PO QHS 06/05/21 Unknown History buspirone 10 mg tablet 10 mg PO TID 06/05/21 Unknown History levothyroxine 25 mcg capsule 25 mcg PO DAILY 06/05/21 Unknown History loratadine 10 mg capsule 10 mg PO QHS 06/05/21 Unknown History meclizine 25 mg tablet 25 mg PO Q8H PRN Vertigo 06/05/21 Unknown History melatonin 5 mg capsule 10 mg PO QHS PRN insomnia 06/05/21 Unknown History potassium chloride 10 mEq 20 meq PO BID 08/26/21 Unknown History capsule,extended release calcium carbonate (Gaby-Gest 200 mg PO DAILY 12/23/21 Unknown History Antacid) cyanocobalamin (vitamin B-12) 1,000 mcg PO DAILY 12/23/21 Unknown History 1,000 mcg tablet guaifenesin 400 mg tablet 400 mg PO Q6H PRN cough 12/23/21 Unknown History menthol 4 % topical gel (Biofreeze 1 applic topical DAILY PRN pain 12/23/21 Unknown History (menthol)) divalproex 250 mg tablet,extended 250 mg PO QAM #30 tabs 08/13/22 Unknown Rx release 24 hr divalproex 500 mg tablet,extended 500 mg PO QHS #30 tabs 08/13/22 Unknown Rx release 24 hr levetiracetam 500 mg tablet 500 mg PO BID #60 tabs 08/13/22 Unknown Rx (Keppra) calcium 600 mg (as 1 tab PO BID 09/26/24 Unknown History carbonate)-vitamin D3 10 mcg (400 unit) tablet desvenlafaxine succinate 50 mg 50 mg PO DAILY 09/26/24 Unknown History tablet,extended release 24 hr famotidine 20 mg tablet 20 mg PO BID 09/26/24 Unknown History lidocaine 5 % topical patch 1 patch topical DAILY 09/26/24 Unknown History lisinopril 20 mg tablet 20 mg PO DAILY 09/26/24 Unknown History magnesium oxide 400 mg (241.3 mg 400 mg PO DAILY 09/26/24 Unknown History magnesium) tablet metoprolol tartrate 25 mg tablet 25 mg PO BID 09/26/24 Unknown History ondansetron 4 mg disintegrating 4 mg PO Q6H PRN nausea and 09/26/24 Unknown Rx tablet vomiting #20 tabs primidone 50 mg tablet 200 mg PO BID 09/26/24 Unknown History lorazepam 1 mg tablet 1 mg PO QHS 10/02/24 Unknown History amlodipine 5 mg tablet 5 mg PO DAILY 11/04/24 Unknown History Allergy/AdvReac Type Severity Reaction Status Date / Time phenytoin Allergy Mild Other Verified 11/06/24 11:14 gabapentin (From Neurontin) Allergy Unknown Unknown Verified 11/06/24 11:14 hydrocodone Allergy Unknown Unknown Verified 11/06/24 11:14 (more content not included)... Normal [facility] Lipaseon 11-06-2024 Lipase [Catalytic activity/Vol] 85 U/L High 13-75 [facility] Comment on above: Result Comment: Redd stovall note: LIPASE revised reference range effective 23. New Lipase methodology. Expected to produce lower values than the previous assay method. NEW Reference Range: 13 - 75 U/L Performed By: #### L 500.2500, L100.0100 #### [facility] [address] [place], [place], [address] ,Serum,hCG Quali.on 11-06-2024 HCG, SERUM QUAL Negative Normal [facility] Comment on above: Performed By: #### L 500.2500, L100.0100 #### [facility] [address] [place], [place], [address] Urinalysis, Completeon 11-06 BACTERIA 1+ /hpf Normal None Seen [facility] Comment on above: Order Comment: COLLE CTOR TO SPECIFY Performed By: #### L 500.2500, L100.0100 #### [facility] [address] [place], [address] EPI,SQUAMOUS 5-10 SEEN Normal 5-10 [facility] Comment on above: Order Comment: COLLE CTOR TO SPECIFY Performed By: #### L 500.2500, L100.0100 #### [facility] [address] [place], [address] WBC 5-10 SEEN Normal 0-5 [facility] Comment on above: Order Comment: COLLE CTOR TO SPECIFY Performed By: #### L 500.2500, L100.0100 #### [facility] [address] [place], [address] Mucus Ql (Urine sed) 0 SEEN Normal [facility] Comment on above: Order Comment: COLLE CTOR TO SPECIFY Performed By: #### L 500.2500, L100.0100 #### [facility] [address] [place], [address] RBC 0 SEEN Normal 0-5 [facility] Comment on above: Order Comment: COLLE CTOR TO SPECIFY Performed By: #### L 500.2500, L100.0100 #### [facility] [address] [place], [address] Ankle min 3 Viewson 11-04-19 25 Ankle min [address] [facility] Services [address] [place] [address] Ankle min 3 Views MR#: [id number] Acct: [id number] Name: REEMA SHAH Rep #: [id number] : 1975 F 49 From: Fran Valencia MD PCP: Dr. Sree Jamison MD Status: REG ER Study: Ankle min 3 Views Date of Exam: 11/04/24 Exam# [id number] Ordering Dr: Sree Felix [employer]IST-C [id number] EXAM: XR LEFT ANKLE COMPLETE, 3 OR MORE VIEWS CLINICAL INDICATION: INJURY TECHNIQUE: Frontal, lateral and oblique views of the left ankle. COMPARISON: No relevant prior studies available. FINDINGS: Acute nondisplaced fracture of involving the distal fibula head with adjacent soft tissue swelling. Widening of the lateral ankle mortise suggests ankle instability and possible ligamentous injury. No other acute or healing fracture or malalignment. RAD/Ankle min 3 Views IMPRESSION: Acute nondisplaced fracture of involving the distal fibula head with adjacent soft tissue swelling. Widening of the lateral ankle mortise suggests ankle instability and possible ligamentous injury. Electronically Signed: Fran Valencia MD at 15:48 EST , CC: GAYLE Felix; Dr. Sree Jamison MD Machine Shorthand Teacher: Signed Normal [facility] Emergency Department Summary on 11-04-2024 Emergency Department Summary [facility] Medical Records Department [address] [place] [address] Emergency Department Summary 11/04/24 MR#: [id number] Acct: [id number] Name: REEMA SHAH Rep #: [id number] : 1975 49 From: Sree ARAUJO PCP: Dr. Sree Jamison MD Status:DEP ER Location: ED HPI History of Present Illness Chief Complaint: Lower Extremity Injury Narrative Narrative: Patient is a 49-year-old female who is in assisted living so history hypertension lipidemia epilepsy, myoclonus who presents to the [facility] for a left lower leg injury. She was up in her wheelchair that is motorized, she struck a wall and felt a pop. Patient says she has pain from the knee all the way down to the toes. She denies any other injury. History of Present Illness Informant: patient [facility] Medical History Long-term use of high-risk medication Systolic heart failure Major depressive disorder Tremor History of IA (myocardial infarction) History of TIA (transient ischemic attack) MELQUIADES (obstructive sleep apnea) Separation of muscle (nontraumatic), unspecified site Nonrheumatic mitral (valve) prolapse Hypercholesteremia Fatty liver Edema Diaphragmatic hernia Hirsutism Fracture of nasal bone Insomnia History of UTI Obesity Psoriasis GERD (gastroesophageal reflux disease) CKD (chronic kidney disease) Epileptic seizure, generalized Hypokalemia Hypothyroidism [place] Medications ???Medication ???Instructions ???Recorded ???Last Taken ???Type albuterol sulfate 90 mcg/actuation 1 - 2 puff inhalation Q6H PRN PRN 03/05/20 Unknown History aerosol inhaler Sob /Or Wheezing allopurinol 300 mg tablet 300 mg PO DAILY 03/05/20 Unknown History acetaminophen 325 mg capsule 650 mg PO Q4H PRN fever or pain 06/05/21 Unknown History (Tylenol) artifi.tears(hypromello se)(PF) 0.3 2 drp ophthalmic (eye) .Q1HR PRN 06/05/21 Unknown History % eye drops dry eye(s) atorvastatin 20 mg tablet 20 mg PO QHS 06/05/21 Unknown History buspirone 10 mg tablet 10 mg PO TID 06/05/21 Unknown History levothyroxine 25 mcg capsule 25 mcg PO DAILY 06/05/21 Unknown History loratadine 10 mg capsule 10 mg PO QHS 06/05/21 Unknown History meclizine 25 mg tablet 25 mg PO Q8H PRN Vertigo 06/05/21 Unknown History melatonin 5 mg capsule 10 mg PO QHS PRN insomnia 06/05/21 Unknown History potassium chloride 10 mEq 20 meq PO BID 08/26/21 Unknown History capsule,extended release calcium carbonate (Gaby-Gest 200 mg PO DAILY 12/23/21 Unknown History Antacid) cyanocobalamin (vitamin B-12) 1,000 mcg PO DAILY 12/23/21 Unknown History 1,000 mcg tablet guaifenesin 400 mg tablet 400 mg PO Q6H PRN cough 12/23/21 Unknown History menthol 4 % topical gel (Biofreeze 1 applic topical DAILY PRN pain 12/23/21 Unknown History (menthol)) divalproex 250 mg tablet,extended 250 mg PO QAM #30 tabs 08/13/22 Unknown Rx release 24 hr divalproex 500 mg tablet,extended 500 mg PO QHS #30 tabs 08/13/22 Unknown Rx release 24 hr levetiracetam 500 mg tablet 500 mg PO BID #60 tabs 08/13/22 Unknown Rx (Keppra) calcium 600 mg (as 1 tab PO BID 09/26/24 Unknown History carbonate)-vitamin D3 10 mcg (400 unit) tablet desvenlafaxine succinate 50 mg 50 mg PO DAILY 09/26/24 Unknown History tablet,extended release 24 hr famotidine 20 mg tablet 20 mg PO BID 09/26/24 Unknown History lidocaine 5 % topical patch 1 patch topical DAILY 09/26/24 Unknown History lisinopril 20 mg tablet 20 mg PO DAILY 09/26/24 Unknown History magnesium oxide 400 mg (241.3 mg 400 mg PO DAILY 09/26/24 Unknown History magnesium) tablet metoprolol tartrate 25 mg tablet 25 mg PO BID 09/26/24 Unknown History ondansetron 4 mg disintegrating 4 mg PO Q6H PRN nausea and 09/26/24 Unknown Rx tablet vomiting #20 tabs primidone 50 mg tablet 200 mg PO BID 09/26/24 Unknown History lorazepam 1 mg tablet 1 mg PO QHS 10/02/24 Unknown History amlodipine 5 mg tablet 5 mg PO DAILY 11/04/24 Unknown History Allergy/AdvReac Type Severity Reaction Status Date / Time phenytoin Allergy Mild Other Verified 11/04/24 13:04 gabapentin (From Neurontin) Allergy Unknown Unknown Verified 11/04/24 13:04 hydrocodone Allergy Unknown Unknown Verified 11/04/24 13:04 acetaminophen (From Vicodin) Allergy Rash Verified 11/04/24 13:04 erythromycin base Allergy Rash Verified 11/04/24 13:04 (Erythromycin Base) hydrocodone bitartrate (From Allergy Rash Verified 11/04/24 13:04 Vicodin) hydromorphone (From Dilaudid) Allergy Rash Verified 11/04/24 13:04 Penicillins Allergy Rash Verified 11/04/24 13:04 promethazine HCl (From Allergy Vomiting Verified 11/04/24 13:04 Phenergan) tramadol Allergy Rash Verified 11/04/24 13:04 codeine AdvReac Vo (more content not included)... Normal [facility] Foot min 3 Viewson 5 Foot min [address] [facility] Imaging Services [address] [place] [address] (245) Foot min 3 Views MR#: [id number] Acct: [id number] Name: REEMA SHAH Rep #: [id number] : 1975 F 49 From: Fran Valencia MD PCP: Dr. Sree Jamison MD Status: REG ER Study: Foot min 3 Views Date of Exam: 11/04/24 Exam# [id number] Ordering Dr: Sree Felix [id number] EXAM: XR LEFT FOOT COMPLETE, 3 OR MORE VIEWS CLINICAL INDICATION: injury TECHNIQUE: Frontal, lateral and oblique views of the left foot. COMPARISON: No relevant prior studies available. FINDINGS: BONES/JOINTS: Unremarkable. No acute fracture. No subluxation. Normal alignment. Preservation of the joint space. No sclerotic or destructive changes observed. SOFT TISSUES: Unremarkable. No soft tissue swelling or gas. No radiopaque foreign body. RAD/Foot min 3 Views IMPRESSION: Negative left foot x-rays. Electronically Signed: Fran Valencia MD at 15:45 EST Reading Location ID and State: [facility] / [place] Tel , Service support , CC: GAYLE Felix; Dr. Sree Jamison MD Machine Shorthand Teacher: Signed Normal [facility] Tibia Fibula 2 Viewson 11-04 Tibia Fibula [address] [facility] Imaging Services [address] [place] [id number] Tibia Fibula 2 Views MR#: [id number] Acct: [id number] Name: REEMA SHAH Rep #: [id number] : 1975 F 49 From: Fran Valencia MD PCP: Dr. Sree Jamison MD Status: REG ER Study: Tibia Fibula 2 Views Date of Exam: 11/04/24 Exam# [id number] Ordering Dr: Sree Felix [id number] EXAM: XR LEFT TIBIA AND FIBULA, 2 VIEWS CLINICAL INDICATION: injury TECHNIQUE: Frontal and lateral views of the left tibia and fibula. COMPARISON: No relevant prior studies available. FINDINGS: BONES/JOINTS: Acute nondisplaced fracture of the fibular head with adjacent soft tissue swelling. Preservation of the joint space. No sclerotic or destructive changes observed. SOFT TISSUES: See above. RAD/Tibia Fibula 2 Views IMPRESSION: Acute nondisplaced fracture of the fibular head with adjacent soft tissue swelling. No other acute fracture. Electronically Signed: Fran Valencia MD at 15:51 EST , CC: GAYLE Felix; Dr. Sree Jamison MD Machine Shorthand Teacher: Signed Normal [facility] 36on 10-30-2024 36 We have been unable to reach your patient to schedule their testing. Test Name: EEG Junior Brand Manager Monitoring 2-3 Day Eval 1st Attempt: 10/26 Called patient, no answer, mailbox full unable to leave message. 2nd Attempt: 10/27 Called patient, no answer, mailbox full, unable to leave message 3rd Attempt: 10/30 Called patient, no answer, left voicemail Normal [facility] Office Visiton 10-26-2024 Follow-up visit [id number] Reema Shah 1975 F Date Provider Department Center 10/26/2024 [id number] HERNANDEZ [facility] None Family History Problem Relation Age of Onset Heart disease Mother Parkinson's Disease Mother Dementia Mother Thyroid disease Father Asthma Sister Seizures Sister Asthma Sister Asthma Brother No Known Problems Maternal Grandmother No Known Problems Maternal Grandfather No Known Problems Paternal Grandmother No Known Problems Paternal Grandfather No Known Problems Daughter Family Status - Relation Status Age at Mother Father Alive Sister Alive Sister Alive Brother Alive Maternal Grandmother Maternal Grandfather Paternal Grandmother Paternal Grandfather Daughter Alive Level of Service:56197 [place] OFFICE/OUTPATIENT ESTABLISHED HIGH MDM 40 MIN Reason for Visit and Comments: Follow-up [750185] Seizures [97] - No new seizures to report Normal [facility] Progress Noteon 10-26-2024 Progress Note Department of Neurological Sciences Section of Epilepsy [facility] [place] [id number] [facility] [address] [facility] [address] Dept: [phone] Dept Loc: [phone] . Visit type: follow-up Reason for Visit: Follow-up and Seizures (No new seizures to report) Objective HPI The patient is a 49 y.o. who lives at [facility] with a PMH significant for mood disorder, borderline personality disorder, psoriasis, and epilepsy since Jun 10, 1994 while at the [facility] when she experienced a convulsion. Previous provider ([facility]) followed her for kidney problems since age 25 now with improved renal function. She reports her last EEG was several years ago. She has been in a wheelchair for 6 years this month. Her fall frequency has worsened recently. She is in a motorized wheel chair today. She reports losing her balance, stating she uses a gait belt and walker. Her last seizure occurred in Aug/Sep 2024 (?). She describes it as a brief left hand flexion greater than right in a dystonic posture and then her left arm shakes uncontrollably with inability to talk after stating, I think Im going into a seizure. She reports that when she went to the hospital she had a generalized convulsive event. - Tongue biting: none - Bladder or bowel incontinence: none - History of status epilepticus: none - Triggers: anxiety, stress - Last seizure: none - Longest seizure-free interval: none Family Composition: NAME RELATIONSHIP GENDER LIVING IN PRIMARY HOME living at facility Mental Status Exam Appearance: Well dressed, well groomed Behavior: Behaves appropriately during the encounter Social relatedness: Euthymic Speech/Language:The patient demonstrates appropriate tone, prosody, monika, phonetics, and syntax Mood: euthymic Affect: Full and appropriate to topic Orientation: Person, Place, Time and Situation Associations: Intact and linear Hallucinations: None Delusions: None Suicidal Ideation: No suicidal ideation, intent or plan. Homicidal Ideation: No homicidal ideation, intent or plan. Insight: Appropriate Judgment: Appropriate ER VISITS for Seizure: Review of Systems Allergies Allergen Reactions Gabapentin Nausea And Vomiting and Unknown Hydrocodone-Acetaminoph en Other and Unknown Vomiting Morphine Other, Unknown and Nausea And Vomiting Vomiting Ondansetron Other and Nausea And Vomiting Vomiting Other Phenytoin Unknown Promethazine Other, Unknown and Nausea And Vomiting Sick Acetaminophen Rash Other reaction(s): Rash Azithromycin Rash, Unknown and Nausea And Vomiting Codeine Other, Rash, Unknown and Nausea And Vomiting Vomiting Erythromycin Rash and Unknown Erythromycin Base Rash and Unknown Hydrocodone Rash and Unknown Hydromorphone Rash and Unknown Penicillins Rash and Unknown Tramadol Rash and Unknown Current Outpatient Medications Medication Sig Dispense Refill acetaminophen (Tylenol) 500 MG tablet Take by mouth. allopurinol (Zyloprim) 300 MG tablet Take 300 mg by mouth in the morning. amLODIPine (Norvasc) 10 MG tablet Take 10 mg by mouth in the morning. atorvastatin (Lipitor) 20 MG tablet LORazepam (Ativan) 1 MG tablet Take 2 tabs po QAM and 1 tab po QPM 90 tablet 2 Menthol, Topical Analgesic, (Icy Hot) 5 % patch Apply topically. albuterol 108 (90 Base) MCG/ACT inhaler (Patient not taking: Reported on 10/26/2024) benzonatate (Tessalon) 200 MG capsule Take by mouth. bisacodyl (Dulcolax) 10 MG suppository Insert into the rectum Daily as needed for constipation. busPIRone (Buspar) 10 MG tablet Calcium + Vitamin D3 600-10 MG-MCG tablet clobetasol (Temovate) 0.05 % external solution Apply to affected areas on scalp BID x 6 weeks Stop using when clear. Repeat as needed for flares. Do not use on face, armpits, groin. 50 mL 3 clotrimazole-betamethas one (Lotrisone) cream Cyanocobalamin ER 1000 MCG tablet controlled-release Take 1,000 mcg by mouth in the morning. Diclofenac Sodium (Voltaren) 1 % gel Apply topically every 12 hours. divalproex (Depakote ER) 250 MG 24 hr tablet Take 1 tab po QAM and 2 tabs po QPM 90 tablet 11 famotidine (Pepcid) 20 MG tablet flurbiprofen (Ansaid) 100 MG tablet Take by mouth every 8 hours as needed. guaiFENesin (Humibid 3) 400 MG tablet Take 400 mg by mouth every 6 hours as needed. ketoconazole (NIZOral) 2 % shampoo Use to wash the scalp 3 times weekly allowing to sit 3 minutes before rinsing. May use regular shampoo and condition after. 120 mL 3 levETIRAcetam (Keppra) 500 MG tablet Take 1 tablet (500 mg) by mouth 2 times daily. 60 tablet 0 levothyroxine (Synthroid, Levoxyl) 25 MCG tablet lidocaine (Lidoderm) 5 % patch Apply 1 patch topically Daily as needed for mild pain (1-3). Remove & discard patch within 12 hours or as directed by MD. (Patient not taking: Reported on 10/26/2024) lisinopril 20 MG t (more content not included)... Normal [facility] 36on 10-24-2024 36 Left voicemail askin g patient to give office an return call back to confirm appointment with provider. Office number left for patient to return call if they will like to confirm, cancel or reschedule appointment. Normal [facility] Basic Metabolic Profile (BMP )on 10-14-2024 BUN/CRE 17.8 RATIO Normal 10-20 [facility] Comment on above: Performed By: #### L 500.3400, L501.2450, L500.2500, L100.0100 #### [facility] [address] [place], [address] CA,Total 9.2 mg/dL Normal 8.5-10.1 [facility] Comment on above: Performed By: #### L 500.3400, L501.2450, L500.2500, L100.0100 #### [facility] [address] [place], [address] Chloride [Moles/Vol] 102 mmol/L Normal 98-107 [facility] Comment on above: Performed By: #### L 500.3400, L501.2450, L500.2500, L100.0100 #### [facility] [address] [place], [address] CO2 [Moles/Vol] 30.0 mmol/L Normal 21.0-32.0 [facility] Comment on above: Performed By: #### L 500.3400, L501.2450, L500.2500, L100.0100 #### [facility] [address] [place], [address] Creatinine [Mass/Vol] 1.46 mg/dL High 0.55-1.02 [facility] Comment on above: Result Comment: The validity of the calculated GFR GFRAA in patients over 70 years has not been determined. Clinical correlation is essential. Performed By: #### L 500.3400, L501.2450, L500.2500, L100.0100 #### [facility] [address] [place], [address] ECRCL 41.96 ml/min Normal [facility] Comment on above: Performed By: #### L 500.3400, L501.2450, L500.2500, L100.0100 #### [facility] [address] [place], [address] EST GFR - AA 49 mL/min Low >60 [facility] Comment on above: Result Comment: Afri can Stateless GFR Calc Performed By: #### L 500.3400, L501.2450, L500.2500, L100.0100 #### [facility] [address] [place], [address] GAP 3 Low 5-15 [facility] Comment on above: Performed By: #### L 500.3400, L501.2450, L500.2500, L100.0100 #### [facility] [address] [place], [address] GFR/1.73 sq M.predicted among non-blacks MDRD (S/P/Bld) [Vol rate/Area] 40 mL/min/{1.73_m2} Low >60 [facility] Comment on above: Result Comment: Non- GFR Calc Performed By: #### L 500.3400, L501.2450, L500.2500, L100.0100 #### [facility] [address] [place], [address] Glucose [Mass/Vol] 104 mg/dL Normal 74-106 [facility] Comment on above: Result Comment: Fast ing Glucose result from 100 to 125 mg/dL suggests IMPAIRED HOMEOSTASIS per A.D.A. criteria. Performed By: #### L 500.3400, L501.2450, L500.2500, L100.0100 #### [facility] [address] [place], [address] Potassium [Moles/Vol] 4.7 mmol/L Normal 3.5-5.1 [facility] Comment on above: Performed By: #### L 500.3400, L501.2450, L500.2500, L100.0100 #### [facility] [address] [place], [address] Sodium [Moles/Vol] 135 mmol/L Low 136-145 [facility] Comment on above: Performed By: #### L 500.3400, L501.2450, L500.2500, L100.0100 #### [facility] [address] [place], [address] Urea nitrogen [Mass/Vol] 26 mg/dL High 7-18 [facility] Comment on above: Performed By: #### L 500.3400, L501.2450, L500.2500, L100.0100 #### [facility] [address] [place], [address] Bedside Glucoseon 10-14-2024 FINGERSTICK GLU 80 mg/dL Normal 74-106 [facility] Comment on above: Result Comment: ULISES GERALD OF PATIENT CARE PER NURSING PROTOCOL Performed By: #### L 500.2500, L100.0100 #### [facility] [address] [place], [address] CBC W/Diff, Automatedon 09-18 Absolute Lymph 1.21 X10 3/uL Normal 0.83-4.51 [facility] Comment on above: Performed By: #### L 500.3400, L501.2450, L500.2500, L100.0100 #### [facility] [address] [place], [address] Absolute Neut 5.7 X10 3/uL Normal 2.0-7.7 [facility] Comment on above: Performed By: #### L 500.3400, L501.2450, L500.2500, L100.0100 #### [facility] [address] [place], [address] Basophils/100 WBC (Bld) 0.3 % Normal 0-1 [facility] Comment on above: Performed By: #### L 500.3400, L501.2450, L500.2500, L100.0100 #### [facility] [address] [place], [address] Eosinophils/100 WBC (Bld) 1.1 % Normal 0-5 [facility] Comment on above: Performed By: #### L 500.3400, L501.2450, L500.2500, L100.0100 #### [facility] [address] [place], [address] Erythrocyte distribution width (RBC) [Ratio] 12.3 % Normal 11.6-14.6 [facility] Comment on above: Performed By: #### L 500.3400, L501.2450, L500.2500, L100.0100 #### [facility] [address] [place], [address] Hematocrit (Bld) [Volume fraction] 41.0 % Normal 37-47 [facility] Comment on above: Performed By: #### L 500.3400, L501.2450, L500.2500, L100.0100 #### [facility] [address] [place], [address] Hemoglobin (Bld) [Mass/Vol] 14.2 g/dL Normal 12.0-15.0 [facility] Comment on above: Performed By: #### L 500.3400, L501.2450, L500.2500, L100.0100 #### [facility] [address] [place], [address] IG% 0.400 Normal 0.0-0.9 [facility] Comment on above: Result Comment: IG% - Immature Granulocytes (promyelocytes, myelocytes and metamyelocytes) > 1% indicates that a LEFT SHIFT is Present. Performed By: #### L 500.3400, L501.2450, L500.2500, L100.0100 #### [facility] [address] [place], [address] Lymphocytes/100 WBC (Bld) 15.3 % Low 19-41 [facility] Comment on above: Performed By: #### L 500.3400, L501.2450, L500.2500, L100.0100 #### [facility] [address] [place], [address] MCH (RBC) [Entitic mass] 31.3 pg Normal 27.0-32.0 [facility] Comment on above: Performed By: #### L 500.3400, L501.2450, L500.2500, L100.0100 #### [facility] [address] [place], [address] MCHC (RBC) [Mass/Vol] 34.6 g/dL Normal 32-36 [facility] Comment on above: Performed By: #### L 500.3400, L501.2450, L500.2500, L100.0100 #### [facility] [address] [place], [address] MCV (RBC) [Entitic vol] 90.3 fL Normal 81-99 [facility] Comment on above: Performed By: #### L 500.3400, L501.2450, L500.2500, L100.0100 #### [facility] [address] [place], [address] Monocytes/100 WBC (Bld) 10.5 % High 0-10 [facility] Comment on above: Performed By: #### L 500.3400, L501.2450, L500.2500, L100.0100 #### [facility] [address] [place], [address] Neutrophils/100 WBC (Bld) 72.4 % High 47-70 [facility] Comment on above: Performed By: #### L 500.3400, L501.2450, L500.2500, L100.0100 #### [facility] [address] [place], [address] Nucleated RBC (Bld) [#/Vol] 0 10*3/uL Normal 0-5 [facility] Comment on above: Performed By: #### L 500.3400, L501.2450, L500.2500, L100.0100 #### [facility] [address] [place], [address] Platelet mean volume (Bld) [Entitic vol] 10.6 fL Normal 6.2-12.0 [facility] Comment on above: Performed By: #### L 500.3400, L501.2450, L500.2500, L100.0100 #### [facility] [address] [place], [address] Platelets (Bld) [#/Vol] 102 10*3/uL Low 150-450 [facility] Comment on above: Performed By: #### L 500.3400, L501.2450, L500.2500, L100.0100 #### [facility] [address] [place], [address] RBC (Bld) [#/Vol] 4.54 10*6/uL Normal 4.2-5.4 [facility] Comment on above: Performed By: #### L 500.3400, L501.2450, L500.2500, L100.0100 #### [facility] [address] [place], [address] RDW SD 40.7 fl Normal 35.1-43.9 [facility] Comment on above: Performed By: #### L 500.3400, L501.2450, L500.2500, L100.0100 #### [facility] [address] [place], [address] WBC (Bld) [#/Vol] 7.9 10*3/uL Normal 4.4-11.0 [facility] Comment on above: Performed By: #### L 500.3400, L501.2450, L500.2500, L100.0100 #### [facility] [address] [place], [address] Chest 1 View (Portable)on Chest 1 View (Portable) [facility] Imaging Services [address] [address] Chest 1 View (Portable) MR#: [id number] Acct: [id number] Name: REEMA SHAH Rep #: [id number] : 1975 F 49 From: Alejandro Sanders MD PCP: Dr. Sree Jamison MD Status: [facility] ER Study: Chest 1 View (Portable) Date of Exam: 10/14/24 Exam# [id number] Ordering Dr: [place] [id number] INDICATION: cough EXAMINATION/TECHNIQUE: X-RAY - XR Chest 1 View COMPARISON: 09/19/2020 chest radiograph. Findings: Single frontal view of the chest. LUNG PARENCHYMA: No acute focal airspace disease or mass lesion. PLEURA: No pleural effusion. No pneumothorax. HEART/GREAT VESSELS: Cardiomediastinal silhouette is unremarkable. Post procedure change of the distal esophagus again noted. BONES: Osseous structures are unremarkable for age. RAD/Chest 1 View (Portable) IMPRESSION: Chest with no acute disease. Electronically Signed: Alejandro Sanders MD at 2:26 EST , CC: Dr. Sree Jamison MD; Fran Naylor DO Machine Shorthand Teacher: Signed Normal [facility] Emergency Department Summary on 10-14-2024 Emergency Department Summary [facility] Medical Records Department [address] [place] [address] Emergency Department Summary 10/14/24 MR#: [id number] Acct: [id number] Name: REEMA SHAH Rep #: [id number] : 1975 49 From: Fran Nalyor DO PCP: Dr. Sree Jamison MD Status:DEP ER Location: ED HPI History of Present Illness Chief Complaint: Nausea/Vomiting Informant: patient Narrative Narrative: Patient is a 49-year-old female with past medical history of hypertension hyperlipidemia and GERD. She states she has had 3 days of nausea vomiting and migraine headache. She denies any fevers or chills. She denies any recent trauma or known sick contact. She states she has been trying euaz-miy-dqhtqcu medications without symptom improvement and has her symptoms will not resolve she presents for evaluation [facility] Medical History Long-term use of high-risk medication Systolic heart failure Major depressive disorder Tremor History of IA (myocardial infarction) History of TIA (transient ischemic attack) MELQUIADES (obstructive sleep apnea) Separation of muscle (nontraumatic), unspecified site Nonrheumatic mitral (valve) prolapse Hypercholesteremia Fatty liver Edema Diaphragmatic hernia Hirsutism Fracture of nasal bone Insomnia History of UTI Obesity Psoriasis GERD (gastroesophageal reflux disease) CKD (chronic kidney disease) Epileptic seizure, generalized Hypokalemia Hypothyroidism [place] Home Medications ???Medication ???Instructions ???Recorded ???Last Taken ???Type albuterol sulfate 90 mcg/actuation 1 - 2 puff inhalation Q6H PRN PRN 03/05/20 Unknown History aerosol inhaler Sob /Or Wheezing allopurinol 300 mg tablet 300 mg PO DAILY 03/05/20 Unknown History acetaminophen 325 mg capsule 650 mg PO Q4H PRN fever or pain 06/05/21 Unknown History (Tylenol) artifi.tears(hypromello se)(PF) 0.3 2 drp ophthalmic (eye) .Q1HR PRN 06/05/21 Unknown History % eye drops dry eye(s) atorvastatin 20 mg tablet 20 mg PO QHS 06/05/21 Unknown History buspirone 10 mg tablet 10 mg PO TID 06/05/21 Unknown History levothyroxine 25 mcg capsule 25 mcg PO DAILY 06/05/21 Unknown History loratadine 10 mg capsule 10 mg PO QHS 06/05/21 Unknown History meclizine 25 mg tablet 25 mg PO Q8H PRN Vertigo 06/05/21 Unknown History melatonin 5 mg capsule 10 mg PO QHS PRN insomnia 06/05/21 Unknown History potassium chloride 10 mEq 20 meq PO DAILY 08/26/21 Unknown History capsule,extended release calcium carbonate (Gaby-Gest 200 mg PO DAILY 12/23/21 Unknown History Antacid) cyanocobalamin (vitamin B-12) 1,000 mcg PO DAILY 12/23/21 Unknown History 1,000 mcg tablet guaifenesin 400 mg tablet 400 mg PO Q6H PRN cough 12/23/21 Unknown History menthol 4 % topical gel (Biofreeze 1 applic topical DAILY PRN pain 12/23/21 Unknown History (menthol)) divalproex 250 mg tablet,extended 250 mg PO QAM #30 tabs 08/13/22 Unknown Rx release 24 hr divalproex 500 mg tablet,extended 500 mg PO QHS #30 tabs 08/13/22 Unknown Rx release 24 hr levetiracetam 500 mg tablet 500 mg PO BID #60 tabs 08/13/22 Unknown Rx (Keppra) calcium 600 mg (as 1 tab PO BID 09/26/24 Unknown History carbonate)-vitamin D3 10 mcg (400 unit) tablet desvenlafaxine succinate 50 mg 50 mg PO DAILY 09/26/24 Unknown History tablet,extended release 24 hr famotidine 20 mg tablet 20 mg PO BID 09/26/24 Unknown History lidocaine 5 % topical patch 1 patch topical DAILY 09/26/24 Unknown History lisinopril 20 mg tablet 20 mg PO DAILY 09/26/24 Unknown History magnesium oxide 400 mg (241.3 mg 400 mg PO DAILY 09/26/24 Unknown History magnesium) tablet metoprolol tartrate 25 mg tablet 25 mg PO BID 09/26/24 Unknown History ondansetron 4 mg disintegrating 4 mg PO Q6H PRN nausea and 09/26/24 Unknown Rx tablet vomiting #20 tabs primidone 50 mg tablet 200 mg PO BID 09/26/24 Unknown History lorazepam 1 mg tablet 1 mg PO QHS 10/02/24 Unknown History Allergy/AdvReac Type Severity Reaction Status Date / Time phenytoin Allergy Mild Other Verified 10/14/24 01:48 gabapentin (From Neurontin) Allergy Unknown Unknown Verified 10/14/24 01:48 hydrocodone Allergy Unknown Unknown Verified 10/14/24 01:48 acetaminophen (From Vicodin) Allergy Rash Verified 10/14/24 01:48 erythromycin base Allergy Rash Verified 10/14/24 01:48 (Erythromycin Base) hydrocodone bitartrate (From Allergy Rash Verified 10/14/24 01:48 Vicodin) hydromorphone (From Dilaudid) Allergy Rash Verified 10/14/24 01:48 Penicillins Allergy Rash Verified 10/14/24 01:48 promethazine HCl (From Allergy Vomiting Verified 10/14/24 01:48 Phenergan) tramadol Allergy Rash Verified 10/14/24 01:48 codeine AdvReac Vomiting Verified 10/14/24 01:48 morphine AdvReac Vomiting (more content not included)... Normal [facility] Lipaseon 10-14-2024 Lipase [Catalytic activity/Vol] 73 U/L Normal 13-75 [facility] Comment on above: Result Comment: Redd stovall note: LIPASE revised reference range effective 23. New Lipase methodology. Expected to produce lower values than the previous assay method. NEW Reference Range: 13 - 75 U/L Performed By: #### L 500.3400, L501.2450, L500.2500, L100.0100 #### [facility] [address] [place], [address] Liver Profileon 10-14-2024 Albumin [Mass/Vol] 3.5 g/dL Normal 3.2-5.0 [facility] Comment on above: Performed By: #### L 500.3400, L501.2450, L500.2500, L100.0100 #### [facility] [address] [place], [address] ALK P 121 U/L High 45-117 [facility] Comment on above: Performed By: #### L 500.3400, L501.2450, L500.2500, L100.0100 #### [facility] [address] [place], [address] ALT [Catalytic activity/Vol] 26 U/L Normal 13-56 [facility] Comment on above: Performed By: #### L 500.3400, L501.2450, L500.2500, L100.0100 #### [facility] [address] [place], [address] AST [Catalytic activity/Vol] 19 U/L Normal 15-37 [facility] Comment on above: Performed By: #### L 500.3400, L501.2450, L500.2500, L100.0100 #### [facility] [address] [place], [address] Bilirubin [Mass/Vol] 0.40 mg/dL Normal 0.20-1.00 [facility] [facility] Comment on above: Result Comment: For patients on eltrombopag therapy, use of Dimension [place] TBIL is not recommended. Performed By: #### L 500.3400, L501.2450, L500.2500, L100.0100 #### [facility] [address] [place], [address] Bilirubin.direct [Mass/Vol] 0.12 mg/dL Normal 0.00-0.30 [facility] Comment on above: Performed By: #### L 500.3400, L501.2450, L500.2500, L100.0100 #### [facility] [address] [place], [address] Globulin (S) [Mass/Vol] 3.8 g/dL Normal 2.2-4.2 [facility] Comment on above: Performed By: #### L 500.3400, L501.2450, L500.2500, L100.0100 #### [facility] [address] [place], [address] T PROT 7.3 g/dL Normal 6.4-8.2 [facility] Comment on above: Performed By: #### L 500.3400, L501.2450, L500.2500, L100.0100 #### [facility] [address] [place], [address] M100.678on 10-14-2024 M100.678 Pending SARS-CoV-2 (COVID 19) Negative INFLUENZA A Negative INFLUENZA B Negative RSV PCR Negative Normal [facility] Comment on above: Performed By: #### L 500.2500, L501.8100, L501.5200, L100.0100 #### [facility] [address] [place], [address] Urinalysis, Completeon 10-14 BACTERIA 0 SEEN Normal None Seen [facility] Comment on above: Order Comment: COLLE CTOR TO SPECIFY Performed By: #### L 500.2500, L501.8100, L501.5200, L100.0100 #### [facility] [address] [place], [address] EPI,SQUAMOUS 0 SEEN Normal 5-10 [facility] Comment on above: Order Comment: COLLE CTOR TO SPECIFY Performed By: #### L 500.2500, L501.8100, L501.5200, L100.0100 #### [facility] [address] [place], [address] Mucus Ql (Urine sed) 0 SEEN Normal [facility] Comment on above: Order Comment: COLLE CTOR TO SPECIFY Performed By: #### L 500.2500, L501.8100, L501.5200, L100.0100 #### [facility] [address] [place], [address] RBC 0 SEEN Normal 0-5 [facility] Comment on above: Order Comment: COLLE CTOR TO SPECIFY Performed By: #### L 500.2500, L501.8100, L501.5200, L100.0100 #### [facility] [address] [place], [address] WBC 0 SEEN Normal 0-5 [facility] Comment on above: Order Comment: COLLE CTOR TO SPECIFY Performed By: #### L 500.2500, L501.8100, L501.5200, L100.0100 #### [facility] [address] [place], [address] Emergency Department Summary on 10-02-2024 Emergency Department Summary [facility] Medical Records Department [address] [facility] [place] [address] Emergency Department Summary 10/02/24 MR#: [id number] Acct: [id number] Name: REEMA SHAH Rep #: [id number] : 1975 49 From: Geovanny Arndt DO PCP: Dr. Sree Jamison MD Status:REG ER Location: ED HPI History of Present Illness HPI Narrative: Patient presents with left leg pain that began tonight. Patient states it began rather suddenly. Patient states she thought she noted some discoloration in her left leg a couple days ago. Patient denies any trauma or injury. Patient states her pain has been constant tonight. Patient states it feels like a burning sensation. Patient states it is worse with palpation and even light palpation. Patient denies any paresthesias or weakness. Patient denies any fevers or chills. Patient denies any chest pain or shortness of breath. Patient was referred to the emergency department for possible DVT. Chief Complaint: Lower Extremity Injury Informant: patient Onset/Context/Timing Onset: Today Context: Sudden Onset Timing: Continuous Quality of Pain: Burning Location: Medial aspect left lower leg Worsened by: Palpation Relieved by: Nothing Associated Symptoms Associated Symptoms: Negative for Parasthesia, Weakness or Loss of [facility]ion [facility] History Long-term use of high-risk medication Systolic heart failure Major depressive disorder Tremor History of IA (myocardial infarction) History of TIA (transient ischemic attack) MELQUIADES (obstructive sleep apnea) Separation of muscle (nontraumatic), unspecified site Nonrheumatic mitral (valve) prolapse Hypercholesteremia Fatty liver Edema Diaphragmatic hernia Hirsutism Fracture of nasal bone Insomnia History of UTI Obesity Psoriasis GERD (gastroesophageal reflux disease) CKD (chronic kidney disease) Epileptic seizure, generalized Hypokalemia Hypothyroidism [place] Home Medications ???Medication ???Instructions ???Recorded ???Last Taken ???Type albuterol sulfate 90 mcg/actuation 1 - 2 puff inhalation Q6H PRN PRN 03/05/20 Unknown History aerosol inhaler Sob /Or Wheezing allopurinol 300 mg tablet 300 mg PO DAILY 03/05/20 Unknown History acetaminophen 325 mg capsule 650 mg PO Q4H PRN fever or pain 06/05/21 Unknown History (Tylenol) artifi.tears(hypromello se)(PF) 0.3 2 drp ophthalmic (eye) .Q1HR PRN 06/05/21 Unknown History % eye drops dry eye(s) atorvastatin 20 mg tablet 20 mg PO QHS 06/05/21 Unknown History buspirone 10 mg tablet 10 mg PO TID 06/05/21 Unknown History levothyroxine 25 mcg capsule 25 mcg PO DAILY 06/05/21 Unknown History loratadine 10 mg capsule 10 mg PO QHS 06/05/21 Unknown History meclizine 25 mg tablet 25 mg PO Q8H PRN Vertigo 06/05/21 Unknown History melatonin 5 mg capsule 10 mg PO QHS PRN insomnia 06/05/21 Unknown History potassium chloride 10 mEq 20 meq PO DAILY 08/26/21 Unknown History capsule,extended release calcium carbonate (Gaby-Gest 200 mg PO DAILY 12/23/21 Unknown History Antacid) cyanocobalamin (vitamin B-12) 1,000 mcg PO DAILY 12/23/21 Unknown History 1,000 mcg tablet guaifenesin 400 mg tablet 400 mg PO Q6H PRN cough 12/23/21 Unknown History menthol 4 % topical gel (Biofreeze 1 applic topical DAILY PRN pain 12/23/21 Unknown History (menthol)) divalproex 250 mg tablet,extended 250 mg PO QAM #30 tabs 08/13/22 Unknown Rx release 24 hr divalproex 500 mg tablet,extended 500 mg PO QHS #30 tabs 08/13/22 Unknown Rx release 24 hr levetiracetam 500 mg tablet 500 mg PO BID #60 tabs 08/13/22 Unknown Rx (Keppra) calcium 600 mg (as 1 tab PO BID 09/26/24 Unknown History carbonate)-vitamin D3 10 mcg (400 unit) tablet desvenlafaxine succinate 50 mg 50 mg PO DAILY 09/26/24 Unknown History tablet,extended release 24 hr famotidine 20 mg tablet 20 mg PO BID 09/26/24 Unknown History lidocaine 5 % topical patch 1 patch topical DAILY 09/26/24 Unknown History lisinopril 20 mg tablet 20 mg PO DAILY 09/26/24 Unknown History magnesium oxide 400 mg (241.3 mg 400 mg PO DAILY 09/26/24 Unknown History magnesium) tablet metoprolol tartrate 25 mg tablet 25 mg PO BID 09/26/24 Unknown History ondansetron 4 mg disintegrating 4 mg PO Q6H PRN nausea and 09/26/24 Unknown Rx tablet vomiting #20 tabs primidone 50 mg tablet 200 mg PO BID 09/26/24 Unknown History lorazepam 1 mg tablet 1 mg PO QHS 10/02/24 Unknown History Allergy/AdvReac Type Severity Reaction Status Date / Time phenytoin Allergy Mild Other Verified 10/02/24 19:16 gabapentin (From Neurontin) Allergy Unknown Unknown Verified 10/02/24 19:16 hydrocodone Allergy Unknown Unknown Verified 10/02/24 19:16 acetaminophen (From Vicodin) Allergy Rash Verified 10/02/24 19:16 erythromycin (more content not included)... Normal [facility] Venous Duplex Imag/Limited/U ely 10-02-2024 Venous Duplex Imag/Limited/Uni [facility] Imaging Services [address] [place] [address] Venous Duplex Imag/Limited/Uni MR#: [id number] Acct: [id number] Name: REEMA SHAH Rep #: [id number] : 1975 F 49 From: Howard Chicas DO PCP: Dr. Sree Jamison MD Status: REG ER Study: Venous Duplex Imag/Limited/Uni Date of Exam: 12/03/23 Exam# [id number] Ordering Dr: [place] [id number] INDICATION: RT LEG PAIN EXAMINATION: Ultrasound US Venous Duplex LLE Unilat / Limited TECHNIQUE: Hill scale, pulse wave, and color flow Doppler imaging was performed of the lower extremity venous system. The bilateral greater saphenous, common femoral, femoral, and popliteal veins were interrogated. COMPARISON: FINDINGS: There is normal compression, augmentation, and signal throughout the visualized deep lower extremity veins. No mass or fluid collection. US/Venous Duplex Imag/Limited/Uni IMPRESSION: No sonographic evidence of deep venous thrombosis. Electronically Signed: Howard Chicas DO at 20:41 EST Reading Location ID and State: [address] [place] [address] Tel [phone], Service support , CC: Dr. Geovanny Arndt DO; Dr. Sree Jamison MD Machine Shorthand Teacher: Signed Normal [facility] 12 Lead EKGon 09-26-20[address] [facility] Cardiovascular Services [address] [place] [address] 12 Lead EKG 09/26/24 1223 MR#: [id number] Acct: [id number] Name: REEMA SHAH Rep #: [id number] : 1975 49 From: Nato Ross MD Attending Dr: Status: DEP ER Ordering Dr: Georges Kelley DO Date: 09/26/24 Location: ED Sex: F C Admitted: Test Reason : WEAKNESS Blood Pressure : */* mmHG Vent. Rate : 73 BPM Atrial Rate : 73 BPM P-R Int : 168 ms QRS Dur : 78 ms QT Int : 402 ms P-R-T Axes : 51 42 42 degrees QTcB Int : 442 ms Normal sinus rhythm Normal ECG Confirmed by OMA ALEXIS, NATO ([id number]), newspaper copy editor VIVI VILLARREAL ([id number]) on 09/27/2024 12:38:46 PM Referred By: Confirmed By: NATO ROSS MD 09/27/24 1238 Date Nato Ross MD CC: Dr. Sree Jamison MD; Dr. Georges Kelley DO Signed Normal [facility] Abdomen/Pelvis W IV Cont ONL Yon 09-26-2024 Abdomen/Pelvis W IV Cont ONLY [facility] Imaging Services [address] [place] [address] Abdomen/Pelvis W IV Cont ONLY MR#: [id number] Acct: [id number] Name: REEMA SHAH Rep #: [id number] : 1975 F 49 From: Son owusu MD PCP: Dr. Sree Jamison MD Status: DEP ER Study: Abdomen/Pelvis W IV Cont ONLY Date of Exam: Exam# [id number] Ordering Dr: Georges Kelley DO ADDENDUM by Dr. Son Hernandez MD on 10/05/24 at 0828 ==== ADDENDUM ==== [id number] ADDENDUM report for billing purposes. Six-month follow-up CT scan of the chest recommended for follow-up and a 7 mm noncalcified nodule in the peripheral lateral aspect of the right lower lobe. Electronically Signed: Son Hernandez MD at 8:28 EST , 10/05/24827 Date cc: Dr. Sree Jamison MD; Dr. Georges Kelley DO * Signed ADDENDUM by Dr. Son Hernandez MD on 10/05/[address]/Abdomen/Pelvis W IV Cont ONLY IMPRESSION: undefined 10/05/24 08 Date cc: Dr. Sree Jamison MD; Dr. Georges Kelley, DO * Signed [id number] STUDY: CT ABDOMEN AND PELVIS WITH CONTRAST REASON FOR EXAM: Female, 49 years old. Abd pain, nausea and vomiting RADIATION DOSAGE (If Supplied By Facility): CTDIvol = ( 16.47 ) mGy, DLP = ( 1232.83 ) mGycm TECHNIQUE: Transaxial images were obtained from the dome of the diaphragm to the symphysis pubis without oral contrast. IV 100mL Isovue-370 was administered. Sagittal and coronal images were reconstructed. Individualized dose optimization techniques were used for this CT. COMPARISON: Comparison is made with prior study July 27, 2013. FINDINGS: Mild increased linear markings at the lung bases suggestive of scarring. 7 mm noncalcified nodule in the anterior lateral aspect of the right lower lobe as seen on axial image #5 and coronal image #52. 6 month follow-up examination is recommended.. The visualized portions of the heart are within normal limits. There is decreased attenuation of the liver consistent with steatosis. Sylvester''s lobe of the liver. Normal gallbladder and extrahepatic biliary system. Normal spleen. Normal pancreas. Normal bilateral adrenal glands. Normal right kidney. Normal left kidney. A ring is seen at the gastroesophageal junction into the prior hiatal hernia repair. Normal small intestine. Normal colon. There are surgical clips in the region of the appendix consistent with a prior appendectomy. Normal abdominal aorta. Normal inferior vena cava. Normal retroperitoneum. Normal urinary bladder. Normal abdominal wall. Normal osseous structures. CT/Abdomen/Pelvis W IV Cont ONLY IMPRESSION: Fatty infiltration of the liver. 7 mm noncalcified nodule in the peripheral lateral aspect of the right lower lobe as described. 6 month follow-up CT of the chest is recommended. Prior hiatal hernia repair. Electronically Signed: Son Hernandez MD at 13:09 [facility] Reading Location ID and State: [address] [place] [address] , Service support , CC: Dr. Sree Jamison MD; Dr. Georges Kelley DO Machine Shorthand Teacher: Signed Normal [facility] Brain/Head without Contrast n 09-26-2024 Brain/Head without Contrast [facility] Imaging Services [address] [place] [id number] Brain/Head without Contrast MR#: [id number] Acct: [id number] Name: REEMA SHAH Rep #: [id number] : 1975 F 49 From: Son owusu MD PCP: Dr. Sree Jamison MD Status: [facility] Study: Brain/Head without Contrast Date of Exam: 09/17 Exam# [id number] Ordering Dr: [place] [id number] STUDY: CT BRAIN WITHOUT CONTRAST REASON FOR EXAM: Female, 49 years old. Fall hit head RADIATION DOSAGE (If Supplied By Facility): CTDIvol = ( 44.99 ) mGy, DLP = ( 812.98 ) mGycm TECHNIQUE: Transaxial CT imaging of the brain was performed without administration of intravenous contrast material. Individualized dose optimization techniques were used for this CT. COMPARISON: Comparison is made with prior study August 13, 2020. FINDINGS: Small focal scalp hematoma overlying the right frontal bone. There is hyperostosis frontalis internus. Normal size ventricles and extra-axial spaces for the patient''s age. Normal white matter tracts of the cerebral hemispheres. Normal basal ganglia and thalami. Normal brainstem. Normal cerebellum. There is no intracranial hemorrhage. There are no findings of an acute ischemic infarction. Normal visualized paranasal sinuses. CT/Brain/Head without Contrast IMPRESSION: Normal unenhanced CT scan of the brain. Small focal scalp hematoma overlying the right frontal bone. Electronically Signed: Son Hernandez MD at 13:03 EST Reading Location ID and State: [address] [place] [address] , Service support , CC: Dr. Sree Jamison MD; Dr. Georges Kelley DO Machine Shorthand Teacher: Signed Normal [facility] CBC W/Diff, Automatedon 12- Absolute Lymph 1.31 X10 3/uL Normal 0.83-4.51 [facility] Comment on above: Performed By: #### L 500.2500, L501.8100, L501.5200, L100.0100 #### [facility] [address] [place], [place], [id number] Absolute Neut 3.2 X10 3/uL Normal 2.0-7.7 [facility] Comment on above: Performed By: #### L 500.2500, L501.8100, L501.5200, L100.0100 #### [facility] [address] [place], [address] Basophils/100 WBC (Bld) 0.4 % Normal 0-1 [facility] Comment on above: Performed By: #### L 500.2500, L501.8100, L501.5200, L100.0100 #### [facility] [address] [place], [address] Eosinophils/100 WBC (Bld) 1.9 % Normal 0-5 [facility] Comment on above: Performed By: #### L 500.2500, L501.8100, L501.5200, L100.0100 #### [facility] [address] [place], [address] Erythrocyte distribution width (RBC) [Ratio] 12.6 % Normal 11.6-14.6 [facility] Comment on above: Performed By: #### L 500.2500, L501.8100, L501.5200, L100.0100 #### [facility] [address] [place], [address] Hematocrit (Bld) [Volume fraction] 40.3 % Normal 37-47 [facility] Comment on above: Performed By: #### L 500.2500, L501.8100, L501.5200, L100.0100 #### [facility] [address] [place], [address] Hemoglobin (Bld) [Mass/Vol] 13.3 g/dL Normal 12.0-15.0 [facility] Comment on above: Performed By: #### L 500.2500, L501.8100, L501.5200, L100.0100 #### [facility] [address] [place], [address] IG% 0.600 Normal 0.0-0.9 [facility] Comment on above: Result Comment: IG% - Immature Granulocytes (promyelocytes, myelocytes and metamyelocytes) > 1% indicates that a LEFT SHIFT is Present. Performed By: #### L 500.2500, L501.8100, L501.5200, L100.0100 #### [facility] [address] [place], [address] Lymphocytes/100 WBC (Bld) 25.5 % Normal 19-41 [facility] Comment on above: Performed By: #### L 500.2500, L501.8100, L501.5200, L100.0100 #### [facility] [address] [place], [address] MCH (RBC) [Entitic mass] 30.3 pg Normal 27.0-32.0 [facility] Comment on above: Performed By: #### L 500.2500, L501.8100, L501.5200, L100.0100 #### [facility] [address] [place], [address] MCHC (RBC) [Mass/Vol] 33.0 g/dL Normal 32-36 [facility] Comment on above: Performed By: #### L 500.2500, L501.8100, L501.5200, L100.0100 #### [facility] [address] [place], [address] MCV (RBC) [Entitic vol] 91.8 fL Normal 81-99 [facility] Comment on above: Performed By: #### L 500.2500, L501.8100, L501.5200, L100.0100 #### [facility] [address] [place], [address] Monocytes/100 WBC (Bld) 8.6 % Normal 0-10 [facility] Comment on above: Performed By: #### L 500.2500, L501.8100, L501.5200, L100.0100 #### [facility] [address] [place], [address] Neutrophils/100 WBC (Bld) 63.0 % Normal 47-70 [facility] Comment on above: Performed By: #### L 500.2500, L501.8100, L501.5200, L100.0100 #### [facility] [address] [place], [address] Nucleated RBC (Bld) [#/Vol] 0 10*3/uL Normal 0-5 [facility] Comment on above: Performed By: #### L 500.2500, L501.8100, L501.5200, L100.0100 #### [facility] [address] [place], [address] Platelet mean volume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 capsule,extended release calcium carbonate (Gaby-Gest 200 mg PO DAILY 12/23/21 Unknown History Antacid) cyanocobalamin (vitamin B-12) 1,000 mcg PO DAILY 12/23/21 Unknown History 1,000 mcg tablet guaifenesin 400 mg tablet 400 mg PO Q6H PRN 12/23/21 Unknown History lorazepam 1 mg tablet See Rx Instructions .Route 12/23/21 Unknown Rx .COMPLEX #0 tabs menthol 4 % topical gel (Biofreeze 1 applic topical DAILY PRN pain 12/23/21 Unknown History (menthol)) sennosides 8.6 mg-docusate sodium 2 tab-cap PO DAILY 12/23/21 Unknown History 50 mg tablet (Senokot-S) divalproex 250 mg tablet,extended 250 mg PO QAM #30 tabs 08/13/22 Unknown Rx release 24 hr divalproex 500 mg tablet,extended 500 mg PO QHS #30 tabs 08/13/22 Unknown Rx release 24 hr flurbiprofen 100 mg tablet 100 mg PO TID PRN pain #90 tabs 08/13/22 Unknown Rx levetiracetam 500 mg tablet 500 mg PO BID #60 tabs 08/13/22 Unknown Rx (Keppra) omeprazole 20 mg capsule,delayed 20 mg PO DAILY 08/13/22 Unknown History release primidone 50 mg tablet 100 mg (2 x 50 mg) PO BID #120 tabs 08/13/22 Unknown Rx Allergy/AdvReac Type Severity Reaction Status Date / Time gabapentin (From Neurontin) Allergy Unknown Unknown Verified 07/25/24 17:12 hydrocodone Allergy Unknown Unknown Verified 07/25/24 17:12 acetaminophen (From Vicodin) Allergy Rash Verified 07/25/24 17:12 erythromycin base Allergy Rash Verified 07/25/24 17:12 (Erythromycin Base) hydrocodone bitartrate (From Allergy Rash Verified 07/25/24 17:12 Vicodin) hydromorphone (From Dilaudid) Allergy Rash Verified 07/25/24 17:12 Penicillins Allergy Rash Verified 07/25/24 17:12 promethazine HCl (From Allergy Vomiting Verified 07/25/24 17:12 Phenergan) tramadol Allergy Rash Verified 07/25/24 17:12 codeine AdvReac Vomiting Verified 07/25/24 1 (more content not included)... Normal [facility] Urinalysis, Completeon 07-25 EPI,SQUAMOUS 0-5 SEEN Normal 5-10 [facility] Comment on above: Order Comment: CLEAN CATCH Performed By: #### L 500.2500, L501.8100, L501.5200, L100.0100 #### [facility] [address] [place], [address] BACTERIA 0 SEEN Normal None Seen [facility] Comment on above: Order Comment: CLEAN CATCH Performed By: #### L 500.2500, L501.8100, L501.5200, L100.0100 #### [facility] [address] [place], [address] Mucus Ql (Urine sed) 0 SEEN Normal [facility] Comment on above: Order Comment: CLEAN CATCH Performed By: #### L 500.2500, L501.8100, L501.5200, L100.0100 #### [facility] [address] [place], [address] RBC 0 SEEN Normal 0-5 [facility] Comment on above: Order Comment: CLEAN CATCH Performed By: #### L 500.2500, L501.8100, L501.5200, L100.0100 #### [facility] [address] [place], [address] WBC 0 SEEN Normal 0-5 [facility] Comment on above: Order Comment: CLEAN CATCH Performed By: #### L 500.2500, L501.8100, L501.5200, L100.0100 #### [facility] [address] [place], [address] Valproic Acid (Depakene) Lev woody 07-25-2024 VALPROIC ACID 58 ug/mL Normal 50-100 [facility] Comment on above: Performed By: #### L 500.2500, L501.8100, L501.5200, L100.0100 #### [facility] [place], [address] Office Visiton 07-18-2024 Follow-up visit [id number] Reema Shah 1975 F Date Provider Department Center 07/18/2024 [id number] CHOPRA [place] None Family History Problem Relation Age of Onset Heart disease Mother Parkinson's Disease Mother Dementia Mother Thyroid disease Father Asthma Sister Seizures Sister Asthma Sister Asthma Brother No Known Problems Maternal Grandmother No Known Problems Maternal Grandfather No Known Problems Paternal Grandmother No Known Problems Paternal Grandfather No Known Problems Daughter Family Status - Relation Status Age at Mother Father Alive Sister Alive Sister Alive Brother Alive Maternal Grandmother Maternal Grandfather Paternal Grandmother Paternal Grandfather Daughter Alive Level of Service:55521 [place] OFFICE/OUTPATIENT ESTABLISHED [facility] 40 MIN Reason for Visit and Comments: Follow-up [002192] Seizures [97] Tremors [248636] Normal [facility] Progress Noteon 07-18-2024 Progress Note [facility] [address] [facility] [address] Dept: [phone] Dept Loc: [phone] Valentina Chopra MD CHIEF COMPLAINT: Chief Complaint Patient presents with Follow-up Seizures Tremors HISTORY OF PRESENT ILLNESS: The patient is a 48 y.o. who returns for seizures and tremors. She reports that she is living in a situation that is very distressful. She reports that she is in distress. She is concerned that she was going to be taken off of her Ativan, but she was re-assured that they are not going to change that. She fears that she will have seizures without the lorazepam. She reports that she has recently had the lorazepam at night only instead of twice daily as it had. She reports that she has been more shaky. She reports that she is more dizzy and has fallen. She reports that she was in [facility] [facility] in [place]. She reports that she ended up in there because of seizures. There are reports from there that they were concerned that she had renal failure. We discussed the admission Her falling has worsened recently. She is in a motorized wheel chair today, but reports that when she is up she has a gait belt and walker on now. Her last seizure was 10 days ago. Her left hand flexed in a dystonic posture and then her left arm shook uncontrollably. She reports that it was short. She reports that when she went to the hospital she had a generalized convulsive event. She had some ability to call out to folks to tell them that she was about to have a seizure before those happened, but went out. Her hands flexed into a flexor posture. Past Medical History: has a past medical history of Anxiety, Chronic kidney disease, Epilepsy ([facility]), Essential hypertension, Gastro-esophageal reflux disease without esophagitis, Hypokalemia, Hypothyroidism, Obesity, Personal history of urinary (tract) infections, Psoriasis, Repeated falls, and Thrombocytopenia ([facility]). Past Surgical History: has a past surgical history that includes Breast reduction. Medications: Current Outpatient Medications: acetaminophen (Tylenol) 500 MG tablet, Take by mouth., Disp: , Rfl: albuterol 108 (90 Base) MCG/ACT inhaler, , Disp: , Rfl: allopurinol (Zyloprim) 300 MG tablet, Take 300 mg by mouth in the morning., Disp: , Rfl: amLODIPine (Norvasc) 10 MG tablet, Take 10 mg by mouth in the morning., Disp: , Rfl: atorvastatin (Lipitor) 20 MG tablet, , Disp: , Rfl: benzonatate (Tessalon) 200 MG capsule, Take by mouth., Disp: , Rfl: bisacodyl (Dulcolax) 10 MG suppository, Insert into the rectum Daily as needed for constipation., Disp: , Rfl: busPIRone (Buspar) 10 MG tablet, , Disp: , Rfl: Calcium + Vitamin D3 600-10 MG-MCG tablet, , Disp: , Rfl: clobetasol (Temovate) 0.05 % external solution, Apply to affected areas on scalp BID x 6 weeks Stop using when clear. Repeat as needed for flares. Do not use on face, armpits, groin., Disp: 50 mL, Rfl: 3 clotrimazole-betamethas one (Lotrisone) cream, , Disp: , Rfl: Cyanocobalamin ER 1000 MCG tablet controlled-release, Take 1,000 mcg by mouth in the morning., Disp: , Rfl: Diclofenac Sodium (Voltaren) 1 % gel, Apply topically every 12 hours., Disp: , Rfl: famotidine (Pepcid) 20 MG tablet, , Disp: , Rfl: flurbiprofen (Ansaid) 100 MG tablet, Take by mouth every 8 hours as needed., Disp: , Rfl: guaiFENesin (Humibid 3) 400 MG tablet, Take 400 mg by mouth every 6 hours as needed., Disp: , Rfl: ketoconazole (NIZOral) 2 % shampoo, Use to wash the scalp 3 times weekly allowing to sit 3 minutes before rinsing. May use regular shampoo and condition after. Do not start before June 01, 2024., Disp: 120 mL, Rfl: 3 levothyroxine (Synthroid, Levoxyl) 25 MCG tablet, , Disp: , Rfl: lidocaine (Lidoderm) 5 % patch, Apply 1 patch topically Daily as needed for mild pain (1-3). Remove & discard patch within 12 hours or as directed by MD., Disp: , Rfl: lisinopril 20 MG tablet, , Disp: , Rfl: loperamide (Imodium A-D) 2 MG tablet, Take by mouth as needed for diarrhea., Disp: , Rfl: loratadine (Claritin) 10 MG tablet, Take 10 mg by mouth., Disp: , Rfl: magnesium hydroxide (Milk of Magnesia) 400 MG/5ML suspension, Take by mouth Daily as needed for constipation., Disp: , Rfl: magnesium oxide (Mag-Ox) 400 MG tablet, Take 400 mg by mouth in the morning., Disp: , Rfl: meclizine (Antivert) 25 MG tablet, Take 25 mg by mouth 3 times daily as needed., Disp: , Rfl: metoprolol tartrate (Lopressor) 25 MG tablet, 2 times daily., Disp: , Rfl: potassium chloride ER (Micro-K) 10 MEQ ER capsule, , Disp: , Rfl: primidone (Mysoline) 50 MG tablet, Take 4 tablets (200 mg) by mouth 2 times daily., Disp: 240 tablet, Rfl: 11 senna-docusate (Lani-Colace) 8.6-50 MG tablet, Take 2 tablets by mouth Nightly as needed., Disp: , Rfl: sertraline (Zoloft) 100 MG tablet, Take 100 mg by mouth in the morning and 100 mg in th (more content not included)... Normal [facility] 36on 07-11-2024 36 We have been unable to reach your patient to schedule their testing. Test Name: eeg custodial 1st Attempt: 07/07 2nd Attempt: 07/10 3rd attempt; 07/11 left message with tera from the nursing facility who states she will take and give to nursing staff. Vanda was notified this is for mainly documentation. Normal [facility] Office Visiton 07-07-2024 Follow-up visit [id number] Reema Shah 1975 F Date Provider Department Center 07/07/2024 [id number] SORTO [facility] None Family History Problem Relation Age of Onset Heart disease Mother Parkinson's Disease Mother Dementia Mother Thyroid disease Father Asthma Sister Seizures Sister Asthma Sister Asthma Brother No Known Problems Maternal Grandmother No Known Problems Maternal Grandfather No Known Problems Paternal Grandmother No Known Problems Paternal Grandfather No Known Problems Daughter Family Status - Relation Status Age at Mother Father Alive Sister Alive Sister Alive Brother Alive Maternal Grandmother Maternal Grandfather Paternal Grandmother Paternal Grandfather Daughter Alive Level of Service:04357 [place] OFFICE/OUTPATIENT ESTABLISHED HIGH MDM 40 MIN Reason for Visit and Comments: New Patient [542] - New Patient referred to us by Dr. Chopra for seizures. Last seizure was in March of 2024 and went to [facility] ED in [place]. Normal [facility] Progress Noteon 07-07-2024 Progress Note Department of Neurological Sciences Section of Epilepsy [facility] [address] [facility] [address] Dept: [phone] Dept Loc: [phone] . Visit type: follow-up Reason for Visit: New Patient (New Patient referred to us by Dr. Chopra for seizures. Last seizure was in March of 2024 and went to [facility] ED in [place].) Per Dr Chopra (who had been following Rosa Elena since 2007), it was medically necessary for her to increase the primidone to 200 mg BID and to reduce the Keppra to 500 mg BID. She is still on low dose Depakote as well. It is necessary for her to see Dr. Hernandez to see if there are other medicines or techniques to reduce her seizures. Objective HPI The patient is a 48 y.o. who lives at [facility] with a PMH significant for mood disorder, borderline personality disorder, psoriasis, and epilepsy since Jun 10, 1994 while at the [facility] when she experienced a convulsion. Previous provider ([facility]) followed her for kidney problems since age 25 now with improved renal function. She reports her last EEG was several years ago. She has been in a wheelchair for 6 years this month. Her fall frequency has worsened recently. She is in a motorized wheel chair today. She reports losing her balance, stating she uses a gait belt and walker. Her last seizure occurred in March,. She describes it as a brief left hand flexion greater than right in a dystonic posture and then her left arm shakes uncontrollably with inability to talk after stating, I think Im going into a seizure. She reports that when she went to the hospital she had a generalized convulsive event. - Tongue biting: none - Bladder or bowel incontinence: none - History of status epilepticus: none - Triggers: anxiety, stress - Last seizure: none - Longest seizure-free interval: none Mental Status Exam Appearance: Well dressed, well groomed Behavior: Behaves appropriately during the encounter Social relatedness: Euthymic Speech/Language:The patient demonstrates appropriate tone, prosody, monika, phonetics, and syntax Mood: euthymic Affect: Full and appropriate to topic Orientation: Person, Place, Time and Situation Associations: Intact and linear Hallucinations: None Delusions: None Suicidal Ideation: No suicidal ideation, intent or plan. Homicidal Ideation: No homicidal ideation, intent or plan. Insight: Appropriate Judgment: Appropriate ER VISITS for Seizure: Review of Systems Allergies Allergen Reactions Gabapentin Nausea And Vomiting and Unknown Hydrocodone-Acetaminoph en Other and Unknown Vomiting Morphine Other, Unknown and Nausea And Vomiting Vomiting Ondansetron Other and Nausea And Vomiting Vomiting Other Phenytoin Unknown Promethazine Other, Unknown and Nausea And Vomiting Sick Acetaminophen Rash Other reaction(s): Rash Azithromycin Rash, Unknown and Nausea And Vomiting Codeine Other, Rash, Unknown and Nausea And Vomiting Vomiting Erythromycin Rash and Unknown Erythromycin Base Rash and Unknown Hydrocodone Rash and Unknown Hydromorphone Rash and Unknown Penicillins Rash and Unknown Tramadol Rash and Unknown Current Outpatient Medications Medication Sig Dispense Refill acetaminophen (Tylenol) 500 MG tablet Take by mouth. albuterol 108 (90 Base) MCG/ACT inhaler allopurinol (Zyloprim) 300 MG tablet Take 300 mg by mouth in the morning. amLODIPine (Norvasc) 10 MG tablet Take 10 mg by mouth in the morning. atorvastatin (Lipitor) 20 MG tablet benzonatate (Tessalon) 200 MG capsule Take by mouth. bisacodyl (Dulcolax) 10 MG suppository Insert into the rectum Daily as needed for constipation. busPIRone (Buspar) 10 MG tablet Calcium + Vitamin D3 600-10 MG-MCG tablet clobetasol (Temovate) 0.05 % external solution Apply to affected areas on scalp BID x 6 weeks Stop using when clear. Repeat as needed for flares. Do not use on face, armpits, groin. 50 mL 3 clotrimazole-betamethas one (Lotrisone) cream Cyanocobalamin ER 1000 MCG tablet controlled-release Take 1,000 mcg by mouth in the morning. Diclofenac Sodium (Voltaren) 1 % gel Apply topically every 12 hours. divalproex (Depakote ER) 250 MG 24 hr tablet divalproex (Depakote ER) 500 MG 24 hr tablet Take 500 mg by mouth. divalproex (Depakote ER) 500 MG 24 hr tablet Take 1 tablet (500 mg) by mouth 2 times daily. 30 tablet 2 famotidine (Pepcid) 20 MG tablet flurbiprofen (Ansaid) 100 MG tablet Take by mouth every 8 hours as needed. guaiFENesin (Humibid 3) 400 MG tablet Take 400 mg by mouth every 6 hours as needed. ketoconazole (NIZOral) 2 % shampoo Use to wash the scalp 3 times weekly allowing to sit 3 minutes before rinsing. May use regular shampoo and condition after. Do not start before June 01, 2024. 120 mL 3 levothyroxine (Synthroid, Levoxyl) 25 MCG tablet lidocaine (more content not included)... Normal [facility] RENAL FUNCTION PANELon 06-06 Albumin [Mass/Vol] 3.6 g/dL Normal 3.2-5.2 [facility] Comment on above: Order Comment: [facility] has implemented the eGFR calculation approach that does not have a coefficient for race that conforms to the NKF-ASN Task Force Recommendations. Performed By: #### L [id number] #### [facility] [address] [place], [place] [address] Ismael Torre M.D. [id number] Anion gap [Moles/Vol] 12 mmol/L Normal 10-20 [facility] Comment on above: Order Comment: [facility] has implemented the eGFR calculation approach that does not have a coefficient for race that conforms to the NKF-ASN Task Force Recommendations. Performed By: #### L [id number] #### [facility] [address] [place], [place] [address] Ismael Torre M.D. [id number] Calcium [Mass/Vol] 8.5 mg/dL Normal 8.4-10.2 [facility] Comment on above: Order Comment: [facility] has implemented the eGFR calculation approach that does not have a coefficient for race that conforms to the NKF-ASN Task Force Recommendations. Performed By: #### L [id number] #### [facility] [address] [place], [place] [address] Ismael Torre M.D. [id number] Chloride [Moles/Vol] 102 mmol/L Normal 98-108 [facility] Comment on above: Order Comment: [facility] has implemented the eGFR calculation approach that does not have a coefficient for race that conforms to the NKF-ASN Task Force Recommendations. Performed By: #### L [id number] #### [facility] [address] [place], [place] [address] Ismael Torre M.D. [id number] Creatinine [Mass/Vol] 1.41 mg/dL High 0.40-1.10 [facility] Comment on above: Order Comment: [facility] has implemented the eGFR calculation approach that does not have a coefficient for race that conforms to the NKF-ASN Task Force Recommendations. Performed By: #### L [id number] #### [facility] [address] [place], [place] [address] Ismael Torre M.D. [id number] EGFR 46 mL/min/1.73 m2 Low >=60 [facility] Comment on above: Order Comment: [facility] has implemented the eGFR calculation approach that does not have a coefficient for race that conforms to the NKF-ASN Task Force Recommendations. Result Comment: Frieda mated GFR was calculated using the 2020 CKD-EPI creatinine equation. Performed By: #### L [id number] #### [facility] [address] [place] [address] Ismael Torre M.D. [id number] Glucose [Mass/Vol] 121 mg/dL High 65-99 [facility] Comment on above: Order Comment: [facility] has implemented the eGFR calculation approach that does not have a coefficient for race that conforms to the NKF-ASN Task Force Recommendations. Performed By: #### L [id number] #### [facility] [address] [place] [address] Ismael Torre M.D. [id number] HCO3 (Bld) [Moles/Vol] 25 mmol/L Normal 21-32 [facility] Comment on above: Order Comment: [facility] has implemented the eGFR calculation approach that does not have a coefficient for race that conforms to the NKF-ASN Task Force Recommendations. Performed By: #### L [id number] #### [facility] [address] [place] [address] Ismael Torre M.D. [id number] Phosphate [Mass/Vol] 2.4 mg/dL Low 2.7-4.5 [facility] Comment on above: Order Comment: [facility] has implemented the eGFR calculation approach that does not have a coefficient for race that conforms to the NKF-ASN Task Force Recommendations. Performed By: #### L [id number] #### [facility] [address] [place] [address] Ismael Torre M.D. [id number] Potassium [Moles/Vol] 3.8 mmol/L Normal 3.5-5.1 [facility] Comment on above: Order Comment: [facility] has implemented the eGFR calculation approach that does not have a coefficient for race that conforms to the NKF-ASN Task Force Recommendations. Performed By: #### L [id number] #### [facility] [address] [place], [place] [address] Ismael Torre M.D. [id number] Sodium [Moles/Vol] 135 mmol/L Normal 135-145 [facility] Comment on above: Order Comment: [facility] has implemented the eGFR calculation approach that does not have a coefficient for race that conforms to the NKF-ASN Task Force Recommendations. Performed By: #### L [id number] #### [facility] [address] [place], [place] [address] Ismael Torre M.D. [id number] Urea nitrogen [Mass/Vol] 18 mg/dL Normal 8-25 [facility] Comment on above: Order Comment: [facility] has implemented the eGFR calculation approach that does not have a coefficient for race that conforms to the NKF-ASN Task Force Recommendations. Performed By: #### L [id number] #### [facility] [address] [place], [place] [address] Ismael Torre M.D. [id number] Urea nitrogen/Creatinine [Mass ratio] 12.8 mg/mg Normal 10.0-20.0 [facility] Comment on above: Order Comment: [facility] has implemented the eGFR calculation approach that does not have a coefficient for race that conforms to the NKF-ASN Task Force Recommendations. Performed By: #### L [id number] #### [facility] [address] [place], [place] [address] Ismael Torre M.D. [id number] Renal function 2000 panelon 06-06-2024 Albumin [Mass/Vol] 3.6 g/dL 3.2 - 5.2 g/dL [facility] [place] Anion gap [Moles/Vol] 12 mmol/L 10 - 2 0 mmol/L [facility] Calcium [Mass/Vol] 8.5 mg/dL 8.4 - 10. 2 mg/dL [facility] [place] Chloride [Moles/Vol] 102 mmol/L 98 - 10 8 mmol/L [facility] Creatinine [Mass/Vol] 1.41 mg/dL High 0.40 - 1.10 mg/dL [facility] [place] GFR/1.73 sq M.predicted CKD-EPI (S/P/Bld) [Vol rate/Area] 46 Low - PINF [facility] Comment on above: Estimated GFR was ca lculated using the 2020 CKD-EPI creatinine equation. Glucose [Mass/Vol] 121 mg/dL High 65 - 99 mg/dL [facility] HCO3 [Moles/Vol] 25 mmol/L 21 - 32 mmol/L [facility] Interpretation and review of laboratory results Abnormal [facility] Phosphate [Mass/Vol] 2.4 mg/dL Low 2.7 - 4 .5 mg/dL [facility] Potassium [Moles/Vol] 3.8 mmol/L 3.5 - 5.1 mmol/L [facility] Sodium [Moles/Vol] 135 mmol/L 135 - 145 mmol/L [facility] Urea nitrogen [Mass/Vol] 18 mg/dL 8 - 25 mg/dL [facility] Urea nitrogen/Creatinine [Mass ratio] 12.8 mg/mg 10.0 - 20.0 [facility] has implemented the eGFR calculation approach that does not have a coefficient for race that conforms to the NKF-ASN Task Force Recommendations. [facility] CBC Auto Differentialon 05-18 Erythrocyte distribution width (RBC) [Entitic vol] 13.0 % 11.6 - 14.8 % [facility] [place] Hematocrit (Bld) [Volume fraction] 38.9 % 36.0 - 46.0 % [facility] Hemoglobin (Bld) [Mass/Vol] 12.8 g/dL 12.0 - 16.0 g/dL [facility] MCH (RBC) [Entitic mass] 30.7 pg 26.0 - 34.0 pg [facility] MCHC (RBC) [Mass/Vol] 32.9 g/dL 31.0 - 37.0 g/dL [facility] MCV (RBC) [Entitic vol] 93.3 fL 80.0 - 100.0 fL [facility] Nucleated RBC (Bld) [#/Vol] 0.00 10*3/uL [facility] Nucleated RBC/100 WBC (Bld) [Ratio] 0.0 % [facility] Platelet mean volume (Bld) [Entitic vol] 10.1 fL 9.4 - 12.4 fL [facility] Platelets (Bld) [#/Vol] 74 10*3/uL Low [facility] RBC (Bld) [#/Vol] 4.17 10*6/uL [facility] WBC (Bld) [#/Vol] 4.08 10*3/uL Low [facility] [place] [facility] CBC WITH AUTO DIFFERENTIALon 06-05-2024 AUTO NRBC 0.0 % Normal [facility] Comment on above: Performed By: #### L [id number] #### LAB [address] [place] [address] Ismael Torre M.D. [id number] AUTO NRBC ABS COUNT 0.00 K/mcL Normal 0.00-0.00 [facility] Comment on above: Performed By: #### L [id number] #### LAB [address] [place] [address] Ismael Torre M.D. [id number] Erythrocyte distribution width (RBC) [Ratio] 13.0 % Normal 11.6-14.8 [facility] Comment on above: Performed By: #### L [id number] #### LAB [address] [place] [address] Ismael Torre M.D. [id number] Hematocrit (Bld) [Volume fraction] 38.9 % Normal 36.0-46.0 [facility] Comment on above: Performed By: #### L [id number] #### LAB [address] [place] [address] Ismael Torre M.D. [id number] Hemoglobin (Bld) [Mass/Vol] 12.8 g/dL Normal 12.0-16.0 [facility] Comment on above: Performed By: #### L [id number] #### LAB [address] [place] [address] Ismael Torre M.D. [id number] MCH (RBC) [Entitic mass] 30.7 pg Normal 26.0-34.0 [facility] Comment on above: Performed By: #### L [id number] #### LAB [address] [place] [address] Ismael Torre M.D. [id number] MCV (RBC) [Entitic vol] 93.3 fL Normal 80.0-100.0 [facility] Comment on above: Performed By: #### L [id number] #### LAB [address] [place] [address] Ismael Torre M.D. [id number] MEAN CORPUSCULAR HEMOGLOBIN CONC 32.9 g/dL Normal 31.0-37.0 [facility] Comment on above: Performed By: #### L [id number] #### LAB [address] [place] [address] Ismael Torre M.D. [id number] Platelet mean volume (Bld) [Entitic vol] 10.1 fL Normal 9.4-12.4 [facility] Comment on above: Performed By: #### L [id number] #### LAB [address] [place] [address] Ismael Torre M.D. [id number] Platelets (Bld) [#/Vol] 74 10*3/uL Low 150-400 [facility] Comment on above: Performed By: #### L [id number] #### LAB [address] [place] [address] Ismael Torre M.D. [id number] RBC (Bld) [#/Vol] 4.17 10*6/uL Normal 4.00-5.20 [facility] Comment on above: Performed By: #### L [id number] #### [facility] [address] [place] [address] Ismael Torre M.D. [id number] WBC (Bld) [#/Vol] 4.08 10*3/uL Low 4.50-11.00 [facility] Comment on above: Performed By: #### L [id number] #### LAB [address] [place] [address] Ismael Torre M.D. [id number] CBC and Diff Morphologyon Ovalocytes LM Ql (Bld) Few [facility] Platelets LM Ql (Bld) Decreased Abnormal Normal [facility] Polychromasia LM Ql (Bld) Few [facility] RBC morphology finding Nom (Bld) See Comment [facility] Comment on above: RBC Indices confirme d with manual peripheral smear review. COMPREHENSIVE METABOLIC PANE [place] 06-05-2024 Albumin [Mass/Vol] 3.6 g/dL Normal 3.2-5.2 [facility] Comment on above: Order Comment: [facility] has implemented the eGFR calculation approach that does not have a coefficient for race that conforms to the NKF-ASN Task Force Recommendations. Performed By: #### L [id number] #### [facility] [address] [place] [address] Ismeal Torre M.D. [id number] ALP [Catalytic activity/Vol] 72 U/L Normal 40-150 [facility] Comment on above: Order Comment: [facility] has implemented the eGFR calculation approach that does not have a coefficient for race that conforms to the NKF-ASN Task Force Recommendations. Performed By: #### L [id number] #### [facility] [address] [place] [address] Ismael Torre M.D. [id number] ALT [Catalytic activity/Vol] 11 U/L Normal 0-35 U/L [facility] Comment on above: Order Comment: [facility] has implemented the eGFR calculation approach that does not have a coefficient for race that conforms to the NKF-ASN Task Force Recommendations. Performed By: #### L [id number] #### [facility] [address] [place] [address] Ismael Torre M.D. [id number] Anion gap [Moles/Vol] 11 mmol/L Normal 10-20 [facility] Comment on above: Order Comment: [facility] has implemented the eGFR calculation approach that does not have a coefficient for race that conforms to the NKF-ASN Task Force Recommendations. Performed By: #### L [id number] #### [facility] [address] [place] [address] Ismael Torre M.D. [id number] AST [Catalytic activity/Vol] 22 U/L Normal 0-35 U/L [facility] Comment on above: Order Comment: [facility] has implemented the eGFR calculation approach that does not have a coefficient for race that conforms to the NKF-ASN Task Force Recommendations. Performed By: #### L [id number] #### [facility] [address] [place] [id number] Ismael Torre M.D. [id number] Bilirubin [Mass/Vol] 0.2 mg/dL Normal 0.0-1.3 [facility] Comment on above: Order Comment: [facility] has implemented the eGFR calculation approach that does not have a coefficient for race that conforms to the NKF-ASN Task Force Recommendations. Performed By: #### L [id number] #### [facility] [address] [place] [id number] Ismael Torre M.D. [id number] Calcium [Mass/Vol] 8.5 mg/dL Normal 8.4-10.2 [facility] Comment on above: Order Comment: [facility] has implemented the eGFR calculation approach that does not have a coefficient for race that conforms to the NKF-ASN Task Force Recommendations. Performed By: #### L [id number] #### [facility] [address] [address] Ismael Torre M.D. [id number] Chloride [Moles/Vol] 108 mmol/L Normal 98-108 [facility] Comment on above: Order Comment: [facility] has implemented the eGFR calculation approach that does not have a coefficient for race that conforms to the NKF-ASN Task Force Recommendations. Performed By: #### L [id number] #### [facility] [address] [address] Ismael Torre M.D. [id number] Creatinine [Mass/Vol] 1.34 mg/dL High 0.40-1.10 [facility] Comment on above: Order Comment: [facility] has implemented the eGFR calculation approach that does not have a coefficient for race that conforms to the NKF-ASN Task Force Recommendations. Performed By: #### L [id number] #### [facility] [address] [address] Ismael Torre M.D. [id number] EGFR 48 mL/min/1.73 m2 Low >=60 [facility] Comment on above: Order Comment: [facility] has implemented the eGFR calculation approach that does not have a coefficient for race that conforms to the NKF-ASN Task Force Recommendations. Result Comment: Frieda mated GFR was calculated using the 2020 CKD-EPI creatinine equation. Performed By: #### L [id number] #### [facility] [address] [address] Ismael Torre M.D. [id number] Glucose [Mass/Vol] 81 mg/dL Normal 65-99 [facility] Comment on above: Order Comment: [facility] has implemented the eGFR calculation approach that does not have a coefficient for race that conforms to the NKF-ASN Task Force Recommendations. Performed By: #### L [id number] #### [facility] [address] [address] Ismael Torre M.D. [id number] HCO3 (Bld) [Moles/Vol] 24 mmol/L Normal 21-32 [facility] Comment on above: Order Comment: [facility] has implemented the eGFR calculation approach that does not have a coefficient for race that conforms to the NKF-ASN Task Force Recommendations. Performed By: #### L [id number] #### [facility] [address] [address] Ismael Torre M.D. [id number] Potassium [Moles/Vol] 4.4 mmol/L Normal 3.5-5.1 [facility] Comment on above: Order Comment: [facility] has implemented the eGFR calculation approach that does not have a coefficient for race that conforms to the NKF-ASN Task Force Recommendations. Performed By: #### L [id number] #### [facility] [address] [address] Ismael Torre M.D. [id number] Protein [Mass/Vol] 5.5 g/dL Low 6.0-8.0 [facility] Comment on above: Order Comment: [facility] has implemented the eGFR calculation approach that does not have a coefficient for race that conforms to the NKF-ASN Task Force Recommendations. Performed By: #### L [id number] #### [facility] [address] [address] Ismael Torre M.D. [id number] Sodium [Moles/Vol] 139 mmol/L Normal 135-145 [facility] Comment on above: Order Comment: [facility] has implemented the eGFR calculation approach that does not have a coefficient for race that conforms to the NKF-ASN Task Force Recommendations. Performed By: #### L [id number] #### [facility] [address] [address] Ismael Torre M.D. [id number] Urea nitrogen [Mass/Vol] 20 mg/dL Normal 8-25 [facility] Comment on above: Order Comment: [facility] has implemented the eGFR calculation approach that does not have a coefficient for race that conforms to the NKF-ASN Task Force Recommendations. Performed By: #### L [id number] #### [facility] [address] [place], [place] [address] Ismael Torre M.D. [id number] Urea nitrogen/Creatinine [Mass ratio] 14.9 mg/mg Normal 10.0-20.0 [facility] Comment on above: Order Comment: [facility] has implemented the eGFR calculation approach that does not have a coefficient for race that conforms to the NKF-ASN Task Force Recommendations. Performed By: #### L [id number] #### [facility] [address] [address] Ismael Torre M.D. [id number] Comprehensive metabolic 2000 panelon 06-05-2024 Albumin [Mass/Vol] 3.6 g/dL 3.2 - 5.2 g/dL [facility] ALP [Catalytic activity/Vol] 72 U/L 40 - 150 U/L [facility] ALT [Catalytic activity/Vol] 11 U/L 0-35 U/L [facility] Anion gap [Moles/Vol] 11 mmol/L 10 - 2 0 mmol/L [facility] AST [Catalytic activity/Vol] 22 U/L 0-35 U/L [facility] Bilirubin [Mass/Vol] 0.2 mg/dL 0.0 - 1 .3 mg/dL [facility] Calcium [Mass/Vol] 8.5 mg/dL 8.4 - 10. 2 mg/dL [facility] Chloride [Moles/Vol] 108 mmol/L 98 - 10 8 mmol/L [facility] Creatinine [Mass/Vol] 1.34 mg/dL High 0.40 - 1.10 mg/dL [facility] GFR/1.73 sq M.predicted CKD-EPI (S/P/Bld) [Vol rate/Area] 48 Low - PINF [facility] Comment on above: Estimated GFR was ca lculated using the 2020 CKD-EPI creatinine equation. Glucose [Mass/Vol] 81 mg/dL 65 - 99 mg/dL [facility] HCO3 [Moles/Vol] 24 mmol/L 21 - 32 mmol/L [facility] Interpretation and review of laboratory results Abnormal [facility] Potassium [Moles/Vol] 4.4 mmol/L 3.5 - 5.1 mmol/L [facility] Protein [Mass/Vol] 5.5 g/dL Low 6.0 - 8.0 g/dL [facility] Sodium [Moles/Vol] 139 mmol/L 135 - 145 mmol/L [facility] Urea nitrogen [Mass/Vol] 20 mg/dL 8 - 25 mg/dL [facility] Urea nitrogen/Creatinine [Mass ratio] 14.9 mg/mg 10.0 - 20.0 [facility] has implemented the eGFR calculation approach that does not have a coefficient for race that conforms to the NKF-ASN Task Force Recommendations. [facility] EKGon 06-05-2024 [facility] EKG 12-leadon 06-05-2024 Atrial Rate 70 BPM [facility] P Bennett 47 degrees [facility] P-R Interval 160 ms [facility] Q-T Interval 422 ms [facility] QRS Duration 76 ms [facility] QTC Calculation (Bezet) 455 ms [facility] R Bennett 42 degrees [facility] T Bennett 76 degrees [facility] Ventricular Rate 70 BPM [facility] th Normal sinus rhythm Normal ECG ECG Cart Interpretation see physician note for interpretation. Confirmed by Keke Leiva ([id number]) on 06/05/2024 7:36:56 PM [facility] MANUAL DIFFERENTIALon 2023 BASOPHILS - ABS (DIFF) 0.00 K/mcL Normal 0.00-0.30 [facility] Comment on above: Performed By: #### 4 [id number] #### LAB [address] [address] Ismael Torre M.D. [id number] BASOPHILS - REL (DIFF) 0.0 % [facility] Comment on above: Performed By: #### 4 [id number] #### LAB [address] [address] Ismael Torre M.D. [id number] EOSINOPHILS - ABS (DIFF) 0.00 K/mcL Normal 0.00-0.50 [facility] Comment on above: Performed By: #### 4 [id number] #### LAB [address] [address] Ismael Torre M.D. [id number] EOSINOPHILS - REL (DIFF) 0.0 % [facility] Comment on above: Performed By: #### 4 [id number] #### LAB [address] [address] Ismael Torre M.D. [id number] LYMPHOCYTE ATYPICAL - REL (DIFF) 2.6 % [facility] Comment on above: Performed By: #### 4 5060 #### LAB [address] [address] Ismael Torre M.D. [id number] LYMPHOCYTES - ABS (DIFF) 1.43 K/mcL Normal 0.90-4.00 [facility] Comment on above: Performed By: #### 4 [id number] #### LAB [address] [address] Ismael Torre M.D. [id number] LYMPHOCYTES - REL (DIFF) 32.5 % [facility] Comment on above: Performed By: #### 4 [id number] #### LAB [address] [address] Ismael Torre M.D. [id number] MONOCYTES - ABS (DIFF) 0.28 K/mcL Low 0.30-0.90 [facility] Comment on above: Performed By: #### 4 [id number] #### LAB [address] [address] Ismael Torre M.D. [id number] MONOCYTES - REL (DIFF) 6.8 % [facility] Comment on above: Performed By: #### 4 [id number] #### LAB [address] [address] Ismael Torre M.D. [id number] NEUTROPHILS - ABS (DIFF) 2.37 K/mcL Normal 1.70-7.00 [facility] Comment on above: Performed By: #### 4 5060 #### LAB [address] [address] Ismael Torre M.D. [id number] NEUTROPHILS - REL (DIFF) 58.1 % [facility] Comment on above: Performed By: #### 4 [id number] #### LAB [address] [address] Ismael Torre M.D. [id number] MORPHOLOGYon 06-05-2024 OVAL SCAN Few Normal [facility] Comment on above: Performed By: #### L [id number] #### [facility] [address] [address] Ismael Torre M.D. [id number] PLATELET ESTIMATE Decreased Abnormal Normal [facility] Comment on above: Performed By: #### L [id number] #### [facility] [address] [address] Ismael Torre M.D. [id number] POLY SCAN Few Normal [facility] Comment on above: Performed By: #### L [id number] #### LAB [address] [address] Ismael Torre M.D. [id number] RBC MORPH SCAN See Comment Normal [facility] Comment on above: Result Comment: RBC Indices confirmed with manual peripheral smear review. Performed By: #### L [id number] #### LAB [address] [address] Ismael Torre M.D. [id number] Manual Differential panel (B ld)on 06-05-2024 Basophils (Bld) [#/Vol] 0.00 10*3/uL [facility] Basophils/100 WBC (Bld) 0.0 % [facility] Eosinophils (Bld) [#/Vol] 0.00 10*3/uL [facility] Eosinophils/100 WBC (Bld) 0.0 % [facility] Lymphocytes (Bld) [#/Vol] 1.43 10*3/uL [facility] Lymphocytes/100 WBC (Bld) 32.5 % [facility] Monocytes (Bld) [#/Vol] 0.28 10*3/uL Low [facility] Monocytes/100 WBC (Bld) 6.8 % [facility] Neutrophils (Bld) [#/Vol] 2.37 10*3/uL [facility] Neutrophils/100 WBC (Bld) 58.1 % [facility] Variant lymphocytes/100 WBC (Bld) 2.6 % [facility] No Panel Informationon 06-05 Interpretation and review of laboratory results Abnormal [facility] OP NOTEon 06-05-2024 OP NOTE OPERATIVE REPORT DATE OF SURGERY: 06.05.24 SURGEON: Raúl Hudson MD ELECTRIC ACCOUNTING MACHINE OPERATOR(S): none PREOPERATIVE DIAGNOSIS: Acute appendicitis. POSTOPERATIVE DIAGNOSIS: Acute appendicitis. OPERATION: Laparoscopic appendectomy. ANESTHESIA: General endotracheal anesthesia. ESTIMATED BLOOD LOSS: 5 mL IV FLUIDS: See anes mL crystalloid URINE OUTPUT: 100 mL SPECIMENS: Appendix to Pathology. DRAINS: none. FINDINGS: Acute appendicitis, nonperforated Grossly normal abdomen, otherwise. INDICATIONS FOR SURGERY: See h/p DESCRIPTION OF PROCEDURE: The patient was taken to the operating room, placed in the supine position on the OR table. Sequential compression stockings were placed on both legs. General anesthesia and perioperative antibiotics were administered. A Lyon catheter was inserted using sterile technique. The patient's abdomen was prepped with ChloraPrep and draped to create a sterile field. A time-out was done. All incisions were first injected with local anesthetic. Small infraumbilical midline incision was made and using electrocautery dissected down to the level of the anterior fascia. Anterior fascia was incised abdomen was bluntly entered without injury to underlying viscus. Ballooned 12mm trocar was then secured to the fascia with 0- Vicryl stay sutures. Pneumoperitoneum was established. An additional suprapubic 5 mm trocar was inserted as well as a 5mm left lower quadrant trocar lateral to the inferior epigastrics. The greater omentum and small bowel were reflected to the upper abdomen. The terminal ileum was followed to its intersection with the cecum, where the appendix came into view. The appendix was elevated with a grasper and mobilized. A [place] dissector was used to create a window at the base of the mesoappendix. An Hundred 45 stapler with a blue cartridge was used to divide the base of the appendix. Mesoappendix was controlled using laparoscopic LigaSure. There was good hemostasis of the staple line. The appendix was placed in a retrieval bag and removed through the umbilical port site. The right lower quadrant was inspected. Cecal staple lines was intact. There were no apparent injuries to the adjacent anatomy. Fluid from the pelvis was suctioned. The omentum and small bowel were returned to the lower abdomen. The trocars were removed without any bleeding noted from the inside abdominal wall. After confirming no problems with a 360 degree survey of the abdomen, the camera was withdrawn. The Sally was removed, evacuating the pneumoperitoneum. The fascia at the umbilicus was closed using interrupted 0 Vicryl sutures. The fascia was palpated to confirm no residual defect. The skin at each incision was closed with 4-0monocryl and glue. Additional local anesthetic was injected at each trocar site. All instrument and sponge counts were correct at the end of the case. The patient tolerated the procedure well. The Lyon catheter was removed. She was awakened, extubated and taken to PACU in good condition. AUTHENTICATED BY RAÚL HUDSON, ON 06/05/2024 16:43:42 Normal [facility] TISSUE EXAMon 06-05-2024 TISSUE EXAM Surgical Pathology Report Case: [id number] Authorizing Provider: Raúl Hudson MD Collected: 06/05/2024 04:36 PM Ordering Location: [facility] Periop Received: 06/06/2024 07:48 AM Pathologist: Salma Ren MD Specimen: Appendix A. Appendix, appendectomy: Acute appendicitis with acute serositis. acute appendictis A. Received in formalin labeled appendix is an appendix with attached mesoappendix measuring 5.8 cm in length by 1.2 cm in greatest diameter. The serosal surface is bhardwaj-white, smooth and glistening with focal adhesions. Sectioning reveals a patent lumen, which is focally distended to 0.5 cm by fecal material. The wall measures up to 0.5 cm in greatest thickness. Masses/polyps are not identified. Policy Analyst sections are submitted as follows: A1 appendiceal and mesoappendiceal margins (shave); A2 appendiceal tip (bisected); A3 additional appendix. JR Gross examination performed at: [facility] - [address] [place] [address] Microscopic examination is performed. Normal [facility] Comment on above: Performed By: #### L [id number] #### [facility] [address] [place] [address] Ismael Torre M.D. [id number] Urine [place]ancilla Containeron 06-05 [facility] CBC Auto Differentialon 05-18 Erythrocyte distribution width (RBC) [Entitic vol] 12.9 % 11.6 - 14.8 % [facility] Hematocrit (Bld) [Volume fraction] 43.5 % 36.0 - 46.0 % [facility] Hemoglobin (Bld) [Mass/Vol] 14.7 g/dL 12.0 - 16.0 g/dL [facility] MCH (RBC) [Entitic mass] 31.3 pg 26.0 - 34.0 pg [facility] MCHC (RBC) [Mass/Vol] 33.8 g/dL 31.0 - 37.0 g/dL [facility] MCV (RBC) [Entitic vol] 92.6 fL 80.0 - 100.0 fL [facility] Nucleated RBC (Bld) [#/Vol] 0.00 10*3/uL [facility] Nucleated RBC/100 WBC (Bld) [Ratio] 0.0 % [facility] Platelet mean volume (Bld) [Entitic vol] 12.2 fL 9.4 - 12.4 fL [facility] Platelets (Bld) [#/Vol] 84 10*3/uL Low [facility] RBC (Bld) [#/Vol] 4.70 10*6/uL [facility] WBC (Bld) [#/Vol] 6.01 10*3/uL [facility] CBC WITH AUTO DIFFERENTIALon 06-04-2024 AUTO NRBC 0.0 % Normal [facility] Comment on above: Performed By: #### 4 [id number] #### LAB [address] [address] Ismael Torre M.D. [id number] AUTO NRBC ABS COUNT 0.00 K/mcL Normal 0.00-0.00 [facility] Comment on above: Performed By: #### 4 5060 #### LAB [address] [address] Ismael Torre M.D. [id number] Erythrocyte distribution width (RBC) [Ratio] 12.9 % Normal 11.6-14.8 [facility] Comment on above: Performed By: #### 4 5060 #### LAB [address] [address] Ismael Torre M.D. [id number] Hematocrit (Bld) [Volume fraction] 43.5 % Normal 36.0-46.0 [facility] Comment on above: Performed By: #### 4 5060 #### LAB [address] [address] Ismael Torre M.D. [id number] Hemoglobin (Bld) [Mass/Vol] 14.7 g/dL Normal 12.0-16.0 [facility] Comment on above: Performed By: #### 4 5060 #### LAB [address] [address] Ismael Torre M.D. [id number] MCH (RBC) [Entitic mass] 31.3 pg Normal 26.0-34.0 [facility] Comment on above: Performed By: #### 4 5060 #### LAB [address] [address] Ismael Torre M.D. [id number] MCV (RBC) [Entitic vol] 92.6 fL Normal 80.0-100.0 [facility] Comment on above: Performed By: #### 4 5060 #### LAB [address] [address] Ismael Torre M.D. [id number] MEAN CORPUSCULAR HEMOGLOBIN CONC 33.8 g/dL Normal 31.0-37.0 [facility] Comment on above: Performed By: #### 4 5060 #### LAB [address] [address] Ismael Torre M.D. [id number] Platelet mean volume (Bld) [Entitic vol] 12.2 fL Normal 9.4-12.4 [facility] Comment on above: Performed By: #### 4 5060 #### LAB [address] [address] Ismael Torre M.D. [id number] Platelets (Bld) [#/Vol] 84 10*3/uL Low 150-400 [facility] Comment on above: Performed By: #### 4 5060 #### LAB [address] [address] Ismael Torre M.D. [id number] RBC (Bld) [#/Vol] 4.70 10*6/uL Normal 4.00-5.20 [facility] Comment on above: Performed By: #### 4 5060 #### LAB [address] [address] Ismael Torre M.D. [id number] WBC (Bld) [#/Vol] 6.01 10*3/uL Normal 4.50-11.00 [facility] Comment on above: Performed By: #### 4 5060 #### LAB [address] [address] Ismael Torre M.D. [id number] CBC and Diff Morphologyon Platelets LM Ql (Bld) Decreased Abnormal Normal [facility] Pol[facility]rom[facility] LM Ql (Bld) Few [facility] RBC morphology finding Nom (Bld) See Comment [facility] Comment on above: RBC Indices confirme d with manual peripheral smear review. COMPREHENSIVE METABOLIC PANE [place] 06-04-2024 Albumin [Mass/Vol] 4.1 g/dL Normal 3.2-5.2 [facility] Comment on above: Order Comment: [facility] has implemented the eGFR calculation approach that does not have a coefficient for race that conforms to the NKF-ASN Task Force Recommendations. Performed By: #### L [id number] #### LAB [address] [address] Ismael Torre M.D. [id number] ALP [Catalytic activity/Vol] 84 U/L Normal 40-150 [facility] Comment on above: Order Comment: [facility] has implemented the eGFR calculation approach that does not have a coefficient for race that conforms to the NKF-ASN Task Force Recommendations. Performed By: #### L [id number] #### LAB [address] [address] Ismael Torre M.D. [id number] ALT [Catalytic activity/Vol] 20 U/L Normal 0-35 U/L [facility] Comment on above: Order Comment: [facility] has implemented the eGFR calculation approach that does not have a coefficient for race that conforms to the NKF-ASN Task Force Recommendations. Performed By: #### L [id number] #### LAB [address] [address] Ismael Torre M.D. [id number] Anion gap [Moles/Vol] 17 mmol/L Normal 10-20 [facility] Comment on above: Order Comment: [facility] has implemented the eGFR calculation approach that does not have a coefficient for race that conforms to the NKF-ASN Task Force Recommendations. Performed By: #### L [id number] #### LAB [address] [address] Ismael Torre M.D. [id number] AST [Catalytic activity/Vol] 43 U/L High 0-35 U/L [facility] Comment on above: Order Comment: [facility] has implemented the eGFR calculation approach that does not have a coefficient for race that conforms to the NKF-ASN Task Force Recommendations. Result Comment: Slig htly Hemolyzed Performed By: #### L [id number] #### [facility] [address] [place], [place] [address] Ismael Torre M.D. [id number] Bilirubin [Mass/Vol] 0.3 mg/dL Normal 0.0-1.3 [facility] Comment on above: Order Comment: [facility] has implemented the eGFR calculation approach that does not have a coefficient for race that conforms to the NKF-ASN Task Force Recommendations. Performed By: #### L [id number] #### [facility] [address] [address] Ismael Torre M.D. [id number] Calcium [Mass/Vol] 9.1 mg/dL Normal 8.4-10.2 [facility] Comment on above: Order Comment: [facility] has implemented the eGFR calculation approach that does not have a coefficient for race that conforms to the NKF-ASN Task Force Recommendations. Performed By: #### L [id number] #### LAB [address] [address] Ismael Torre M.D. [id number] Chloride [Moles/Vol] 108 mmol/L Normal 98-108 [facility] Comment on above: Order Comment: [facility] has implemented the eGFR calculation approach that does not have a coefficient for race that conforms to the NKF-ASN Task Force Recommendations. Performed By: #### L [id number] #### [facility] [address] [address] Ismael Torre M.D. [id number] Creatinine [Mass/Vol] 1.45 mg/dL High 0.40-1.10 [facility] Comment on above: Order Comment: [facility] has implemented the eGFR calculation approach that does not have a coefficient for race that conforms to the NKF-ASN Task Force Recommendations. Performed By: #### L [id number] #### [facility] [address] [id number] Ismael Torre M.D. [id number] EGFR 44 mL/min/1.73 m2 Low >=60 [facility] Comment on above: Order Comment: [facility] has implemented the eGFR calculation approach that does not have a coefficient for race that conforms to the NKF-ASN Task Force Recommendations. Result Comment: Frieda mated GFR was calculated using the 2020 CKD-EPI creatinine equation. Performed By: #### L [id number] #### [facility] [address] [address] Ismael Torre M.D. [id number] Glucose [Mass/Vol] 125 mg/dL High 65-99 [facility] Comment on above: Order Comment: [facility] has implemented the eGFR calculation approach that does not have a coefficient for race that conforms to the NKF-ASN Task Force Recommendations. Performed By: #### L [id number] #### [facility] [address] [address] Ismael Torre M.D. [id number] HCO3 (Bld) [Moles/Vol] 20 mmol/L Low 21-32 [facility] Comment on above: Order Comment: [facility] Services has implemented the eGFR calculation approach that does not have a coefficient for race that conforms to the NKF-ASN Task Force Recommendations. Performed By: #### L [id number] #### [facility] [address] [address] Ismael Torre M.D. [id number] Potassium [Moles/Vol] 5.2 mmol/L High 3.5-5.1 [facility] Comment on above: Order Comment: [facility] Services has implemented the eGFR calculation approach that does not have a coefficient for race that conforms to the NKF-ASN Task Force Recommendations. Result Comment: Slig htly Hemolyzed Performed By: #### L [id number] #### [facility] [address] [address] Ismael Torre M.D. [id number] Protein [Mass/Vol] 6.8 g/dL Normal 6.0-8.0 [facility] Comment on above: Order Comment: [facility] Services has implemented the eGFR calculation approach that does not have a coefficient for race that conforms to the NKF-ASN Task Force Recommendations. Performed By: #### L [id number] #### [facility] [address] [place], [place] [address] Ismael Torre M.D. [id number] Sodium [Moles/Vol] 140 mmol/L Normal 135-145 [facility] Comment on above: Order Comment: [facility] Services has implemented the eGFR calculation approach that does not have a coefficient for race that conforms to the NKF-ASN Task Force Recommendations. Performed By: #### L [id number] #### [facility] [address] [address] Ismael Torre M.D. [id number] Urea nitrogen [Mass/Vol] 21 mg/dL Normal 8-25 [facility] Comment on above: Order Comment: [facility] has implemented the eGFR calculation approach that does not have a coefficient for race that conforms to the NKF-ASN Task Force Recommendations. Performed By: #### L [id number] #### [facility] [address] [address] Ismael Torre M.D. [id number] Urea nitrogen/Creatinine [Mass ratio] 14.5 mg/mg Normal 10.0-20.0 [facility] Comment on above: Order Comment: [facility] has implemented the eGFR calculation approach that does not have a coefficient for race that conforms to the NKF-ASN Task Force Recommendations. Performed By: #### L [id number] #### [facility] [address] [address] Ismael Torre M.D. [id number] CONSULTon 06-04-2024 CONSULT --- Attestation signed by Raúl Hudson MD at 06/05/2024 10:00 AM I agree with the Advanced Practice Provider note with the same day of service. The patient was seen and examined by me, the attending surgeon, on rounds on the date of service listed above. I have reviewed the Advanced Practice Provider note with the relevant labs, studies, and field technical support consultant notes. I have reviewed and agree with the documented history, exam, and plan of care. The below note includes my discussion, exams, and review of relevant labs and imaging. Agree with below note 48-year-old female with below past medical history complaining of right lower quadrant abdominal pain, nausea and vomiting. CT abdomen pelvis was obtained by the emergency room staff consistent with acute appendicitis. General surgery was consulted. Blood pressure (!) 175/95, pulse 71, temperature 98.1 degrees F (36.7 degrees C), temperature source Oral, resp. rate 16, height 4' 7, weight 71.2 kg (157 lb), SpO2 96%, not currently . General awake alert no acute distress Respiratory nonlabored CV nontachycardic Abdomen is soft, obese, tender to palpation in the right lower quadrant with guarding Lab work reviewed CT imaging reviewed Plan Due to fecalith present at the appendiceal orifice I would recommend proceeding with laparoscopic possible open appendectomy Risk possible complications Maintain n.p.o., IV fluids continue IV antibiotics Remainder of care as below [facility] SURGICAL HISTORY & PHYSICAL/CONSULTATION NOTE ===== SURGICAL PROBLEM Acute appendicitis ASSESSMENT & PLAN/ACTIVE MEDICAL PROBLEMS: Acute appendicitis- Ct imaging with acute appendicitis with fecalith WBC 6, afebrile, NPO Consent obtained for lap appy tomorrow with Dr. Hudson INCIDENTAL FINDINGS: N/A. CHIEF COMPLAINT: Abdominal pain HISTORY OF PRESENT ILLNESS / INJURY (HPI): Adore is a 48 year old female with past medical history noted below. She arrives to the ED for evaluation of severe right lower quadrant pain and vomiting. She was found to have acute appendicitis and general surgery was consulted for evaluation.She is HDS. Pain on exam rhonda to RLQ. She denies AC/AP at home. PAST MEDICAL HISTORY (PMH): Past Medical History: Diagnosis Date Acquired thrombocytopenia ([facility]) [facility]/Lopez Shaikh Acute kidney injury (HCC) 05/22/2018 [facility]/Jonatan Chiu DO Anxiety Arm abrasion 06/19/2019 INFO GAINED FROM: /CONFUCIANIST ED VISIT NOTE --- AC GAO MD Calcaneal spur of right foot 2016 Documented on x-ray CKD (chronic kidney disease) Congestive heart failure (CHF) ([facility]) [facility]/Lopez Shaikh Contusion, hip 06/19/2019 INFO GAINED FROM: /CONFUCIANIST ED VISIT NOTE --- AC GAO MD Depression Epilepsy ([facility]) 08/06/2011 [facility]- Dr. Chopra Epilepsy ([facility]) 1994 Facet degeneration of lumbar region 10/14/2018 [facility]/Jono ALEXIS, Saulius Mild facet degenerative changes seen in the lower lumbar spine Fatty liver [facility]/Joe Mendieta MD Mild fibrofatty changes of the liver Fluid collection (edema) in the arms, legs, hands and feet 03/09/2018 Dr valentina Chopra Gastritis determined by endoscopy 12/29/2016 Dr. GonzalezKzhwtg-Dyocovgwt-fjpabs forated nonbleeding with biopsy 1 para 1 Hepatic steatosis [facility]/Heidy Jara MD Mild Hiatal hernia 12/29/[address] Lobo grade 4 Hypercholesterolemia [facility]/Jonatan Chiu DO Hypertension 2000 2000-present Insomnia [facility]/Lopez Shaikh Kidney stone [facility]Lopez Shaikh Laceration of head 06/19/2019 INFO GAINED FROM: /CONFUCIANIST ED VISIT NOTE --- AC GAO MD Lung nodule 12/15/2017 0.5 cm pleural based nodule in right middle lobe. Mild linear atelectasis Mitral valve prolapse [facility]Lopez Shaikh Motor seizure ([facility]) 03/16/2019 INFO GAINED FROM: /CONFUCIANIST ED VISIT --- BLAKE STEELE,CAREN Rectus diastasis [facility]/Heidy Jara MD Present with small wide necked perumbical ventral containing fat. Second degree burn of foot 04/23/2018 Right Foot - [facility] Sleep apnea Stroke (HCC) 2000 mild Tremor Past Surgical History: Procedure Laterality Date Conner pH capsule placement 02/01/2017 Dr. Lobo BREAST REDUCTION 2000 [facility]-nonperforating gastritis ESOPHAGEAL MANOMETRY 02/01/2017 HERNIA REPAIR 06/11/2017 Dr Richards INTRAUTERINE DEVICE INSERTION 02/15/2015 Dr. Pennie Meyers OBGYN Laparoscopic LINX sphincter augmentation (more content not included)... Normal [facility] CT ABDOMEN PELVIS WITH IV CO NTRAST ONLYon 06-04-2024 CT ABDOMEN PELVIS WITH IV CONTRAST ONLY EXAMINATION: CT ABDOMEN PELVIS WITH IV CONTRAST ONLY HISTORY: ORDERING SYSTEM PROVIDED HISTORY: RLQ pain, TECHNOLOGIST PROVIDED HISTORY: Illness/Other Reason for exam: Pt arrives to ED for abdominal pain. Pt states this started 2 hours ago. Pt also states she vomited a few times. Pt arrives in no distress. Breathing even and unlabored. No distress. GCS 15. Encounter Type: Initial Additional signs and symptoms: RLQ pain ORDERING SYSTEM PROVIDED DIAGNOSIS CODES: COMPARISON: CT dissection with pelvis dated 12/31/2023 TECHNIQUE: CT examination of the abdomen and pelvis following the administration of intravenous contrast. Coronal and sagittal reformations were performed. Dose reduction techniques were achieved by using automated exposure control and/or adjustment of mA and/or kV according to patient size and/or use of iterative reconstruction technique. CONTRAST: IOPAMIDOL 370 MG IODINE/ML (76 %) INTRAVENOUS SOLUTION - 75 mL, FINDINGS: No focal consolidation is seen in the lung bases. Mild cardiomegaly is seen. LINX device is seen about the proximal stomach, which causes metallic artifact and limits evaluation of the upper abdomen. The liver, spleen, gallbladder, pancreas and bilateral adrenal glands appear unremarkable. Bilateral kidneys demonstrate normal size, morphology and contrast-enhancement. There is no evidence for hydronephrosis bilaterally. The urinary bladder appears unremarkable. Nonobstructive bowel pattern is seen. Mild distended wall thickened and wall enhancing appendix is seen containing a 2 mm appendicular lith, with mild adjacent mesenteric fat stranding as well as tiny adjacent free fluid, suggestive of acute appendicitis. No abnormal fluid collection is seen. Large volume of stool is seen in the rectum. The vascular structures demonstrate normal caliber and contrast-enhancement. The abdominal wall and visualized soft tissues appear unremarkable. No destructive osseous lesion is seen. IMPRESSION: Findings suggestive of acute appendicitis. No abnormal fluid collection is seen at this time. I discussed findings with Helga Roche NP in the ED at 11:02 p.m.. Workstation ID: [id number] Dictated by: CAREY FRASER on WedJun 04, 2024 11:04:11 PM EDT Transcribed by: CAREY FRASER on [place] Jun 04, 2024 11:04:11 PM EDT Finalized by: CAREY FRASER on WedJun 04, 2024 11:04:11 PM EDT [facility] Comment on above: Order Comment: Injur y/Trauma or Illness?:Illness/OtherHow long have you had these symptoms (acute/chronic)?:AcuteReason for exam?:Pt arrives to ED for abdominal pain. Pt states this started 2 hours ago. Pt also states she vomited a few times. Pt arrives in no distress. Breathing even and unlabored. No distress. GCS 15.Type of Exam?:InitialAdditional signs and symptoms?:RLQ pain CT Abdomen and Pelvis W cont rast Deepak 06-04-2024 Findings suggestive of acute appendicitis. No abnormal fluid collection is seen at this time. I discussed findings with Helga Roche NP in the ED at 11:02 p.m.. Workstation ID: [id number] [facility] EXAMINATION: CT ABDOMEN PELVIS WITH IV CONTRAST ONLY HISTORY: ORDERING SYSTEM PROVIDED HISTORY: RLQ pain, TECHNOLOGIST PROVIDED HISTORY: Illness/Other Reason for exam: Pt arrives to ED for abdominal pain. Pt states this started 2 hours ago. Pt also states she vomited a few times. Pt arrives in no distress. Breathing even and unlabored. No distress. GCS 15. Encounter Type: Initial Additional signs and symptoms: RLQ pain ORDERING SYSTEM PROVIDED DIAGNOSIS CODES: COMPARISON: CT dissection with pelvis dated 12/31/2023 TECHNIQUE: CT examination of the abdomen and pelvis following the administration of intravenous contrast. Coronal and sagittal reformations were performed. Dose reduction techniques were achieved by using automated exposure control and/or adjustment of mA and/or kV according to patient size and/or use of iterative reconstruction technique. CONTRAST: IOPAMIDOL 370 MG IODINE/ML (76 %) INTRAVENOUS SOLUTION - 75 mL, FINDINGS: No focal consolidation is seen in the lung bases. Mild cardiomegaly is seen. LINX device is seen about the proximal stomach, which causes metallic artifact and limits evaluation of the upper abdomen. The liver, spleen, gallbladder, pancreas and bilateral adrenal glands appear unremarkable. Bilateral kidneys demonstrate normal size, morphology and contrast-enhancement. There is no evidence for hydronephrosis bilaterally. The urinary bladder appears unremarkable. Nonobstructive bowel pattern is seen. Mild distended wall thickened and wall enhancing appendix is seen containing a 2 mm appendicular lith, with mild adjacent mesenteric fat stranding as well as tiny adjacent free fluid, suggestive of acute appendicitis. No abnormal fluid collection is seen. Large volume of stool is seen in the rectum. The vascular structures demonstrate normal caliber and contrast-enhancement. The abdominal wall and visualized soft tissues appear unremarkable. No destructive osseous lesion is seen. [employer] Carey Sanderson MD - 06/04/2024 EXAMINATION: CT ABDOMEN PELVIS WITH IV CONTRAST ONLY HISTORY: ORDERING SYSTEM PROVIDED HISTORY: RLQ pain, TECHNOLOGIST PROVIDED HISTORY: Illness/Other Reason for exam: Pt arrives to ED for abdominal pain. Pt states this started 2 hours ago. Pt also states she vomited a few times. Pt arrives in no distress. Breathing even and unlabored. No distress. GCS 15. Encounter Type: Initial Additional signs and symptoms: RLQ pain ORDERING SYSTEM PROVIDED DIAGNOSIS CODES: COMPARISON: CT dissection with pelvis dated 12/31/2023 TECHNIQUE: CT examination of the abdomen and pelvis following the administration of intravenous contrast. Coronal and sagittal reformations were performed. Dose reduction techniques were achieved by using automated exposure control and/or adjustment of mA and/or kV according to patient size and/or use of iterative reconstruction technique. CONTRAST: IOPAMIDOL 370 MG IODINE/ML (76 %) INTRAVENOUS SOLUTION - 75 mL, FINDINGS: No focal consolidation is seen in the lung bases. Mild cardiomegaly is seen. LINX device is seen about the proximal stomach, which causes metallic artifact and limits evaluation of the upper abdomen. The liver, spleen, gallbladder, pancreas and bilateral adrenal glands appear unremarkable. Bilateral kidneys demonstrate normal size, morphology and contrast-enhancement. There is no evidence for hydronephrosis bilaterally. The urinary bladder appears unremarkable. Nonobstructive bowel pattern is seen. Mild distended wall thickened and wall enhancing appendix is seen containing a 2 mm appendicular lith, with mild adjacent mesenteric fat stranding as well as tiny adjacent free fluid, suggestive of acute appendicitis. No abnormal fluid collection is seen. Large volume of stool is seen in the rectum. The vascular structures demonstrate normal caliber and contrast-enhancement. The abdominal wall and visualized soft tissues appear unremarkable. No destructive osseous lesion is seen. IMPRESSION: Findings suggestive of acute appendicitis. No abnormal fluid collection is seen at this time. I discussed findings with Helga Roche NP in the ED at 11:02 p.m.. Workstation ID: [id number] [facility] Radiology Study observation (narrative) [facility] CT Abdomen and Pelvis W cont rast IVOrdered By: Carey Fraser on 06-04-2024 [facility] Work Phone: Comprehensive metabolic 2000 panelOrdered By: Anthony Mcrae on 06-04-2024 Albumin [Mass/Vol] 4.1 g/dL 3.2 - 5.2 g/dL [facility] ALP [Catalytic activity/Vol] 84 U/L 40 - 150 U/L [facility] ALT [Catalytic activity/Vol] 20 U/L 0-35 U/L [facility] Anion gap [Moles/Vol] 17 mmol/L 10 - 2 0 mmol/L [facility] AST [Catalytic activity/Vol] 43 U/L High 0-35 U/L [facility] Comment on above: Slightly Hemolyzed Bilirubin [Mass/Vol] 0.3 mg/dL 0.0 - 1 .3 mg/dL [facility] Calcium [Mass/Vol] 9.1 mg/dL 8.4 - 10. 2 mg/dL [facility] Chloride [Moles/Vol] 108 mmol/L 98 - 10 8 mmol/L [facility] Creatinine [Mass/Vol] 1.45 mg/dL High 0.40 - 1.10 mg/dL [facility] GFR/1.73 sq M.predicted CKD-EPI (S/P/Bld) [Vol rate/Area] 44 Low - PINF [facility] Comment on above: Estimated GFR was ca lculated using the 2020 CKD-EPI creatinine equation. Glucose [Mass/Vol] 125 mg/dL High 65 - 99 mg/dL [facility] HCO3 [Moles/Vol] 20 mmol/L Low 21 - 32 mmol/L [facility] Interpretation and review of laboratory results Abnormal [facility] Potassium [Moles/Vol] 5.2 mmol/L High 3.5 - 5.1 mmol/L [facility] Comment on above: Slightly Hemolyzed Protein [Mass/Vol] 6.8 g/dL 6.0 - 8.0 g/dL [facility] Sodium [Moles/Vol] 140 mmol/L 135 - 145 mmol/L [facility] Urea nitrogen [Mass/Vol] 21 mg/dL 8 - 25 mg/dL [facility] Urea nitrogen/Creatinine [Mass ratio] 14.5 mg/mg 10.0 - 20.0 [facility] Services has implemented the eGFR calculation approach that does not have a coefficient for race that conforms to the NKF-ASN Task Force Recommendations. [facility] ED Procedureon 06-04-2024 ED Procedure EKG 12-lead Date/Time: 06/04/2024 9:39 PM Performed by: Bang Tovar DO Authorized by: Bang Tovar DO Interpreted by ED attending physician Rhythm: sinus rhythm BPM: 70 Conduction: conduction normal ST Segments: ST segments normal T Waves: T waves normal Clinical impression: normal ECG AUTHENTICATED BY BANG TOAVR, ON 06/04/2024 23:36:02 Normal [facility] ED Prov Noteon 06-04-2024 ED Prov Note EMERGENCY MEDICINE PROVIDER NOTE WELCOME TO [facility] NAME: Reema Shah AGE: 48 y.o. SEX: female : 1975 ENCOUNTER DATE: 06/05/24 CSN: [id number] PCP: Jyoti Gupta MD History of Presenting Illness/Medical Decision Making The history was obtained from the patient. Reema is a 48 y.o. female with a PMH as stated below, Primary Care Physician on file: Jyoti Gupta MD , who presents with a chief complaint of Abdominal Pain. Pain located in RLQ, no radiating, sharp in nature. Denies history of similar symptoms. Denies urinary concerns including dysuria, hematuria. No diarrhea, melanotic stool, bright red blood. States she was passing gas this morning. Has not taken any medications for symptoms. Has some associated nausea and vomiting, denies hemalatha hematemesis. Noticed streaks of red in vomit. Has tried smelling alcohol swabs for nausea, minimal improvement. Denies fever. No history of kidney stones. No syncopal episode. No CP or SOB. Denies hx of ovarian cysts. Currently not menstruating, menopausal. I saw and evaluated the patient and I have reviewed the chief complaint, as well as the nursing triage note(s), patient's past medical/surgical, family, and social history, previous ED visits, hospitalizations, and available pertinent outside records. ED Course as of 06/05/24 0332 Sun Jun 04, [id number] Potassium(!): 5.2 Slightly hemolyzed [ZW] 2228 NT Pro BNP(!) [ZW] 2228 Lipase(!) Low suspicion for acute pancreatitis. [ZW] 2228 Urinalysis(!) Urinalysis without evidence of blood, no bacteria, low suspicion for acute UTI, obstructive uropathy, or vascular nephropathy. [ZW] 2228 Creatinine(!): 1.45 CKD, renal function grossly at baseline upon chart comparison. [ZW] 2229 CBC w/ Diff(!) Thrombocytopenia. Known history upon chart comparison. Does not require emergent platelet transfusion at this time. [ZW] 2229 Troponin x 2 (Now and Repeat in 3 hours) Troponin negative, ACS unlikely. [ZW] ED Course User Index [ZW] Bang Tovar, DO Upon arrival vital signs stable. On exam she does appear to be uncomfortable, however nontoxic appearing, non-ill appearing. Lungs CTA bilaterally. Pulses intact and equal throughout all 4 extremities, low suspicion for an acute aortic dissection per my clinical gestalt. EKG obtained and reviewed, NSR, low suspicion for ACS, troponin negative. Urinalysis noninfectious without evidence of bacteria, no blood, no flank pain or CVA tenderness on examination, low suspicion for obstructive uropathy or vascular nephropathy. Negative sirs criteria, sepsis unlikely. Hemoglobin WNL at 14.7. Renal function at baseline.Borderline hyperkalemia, however slightly hemolyzed, no EKG changes. BNP slightly elevated given patient's known history of cardiac disease, does not appear to be clinically having a CHF exacerbation. Abdomen soft, nonperitoneal, however does have localized tenderness to be palpation in the right lower quadrant concerning for acute appendicitis given the CT imaging results, no abscess or perforation, no free air, SBO, diverticulitis. Incidental finding does include large colonic Mak consistent with underlying constipation. Patient was made n.p.o., given pain control with 50 mcg IV fentanyl. Surgery team consulted, plan for admission for OR management and IV antibiotics per surgery team. The patient will require admission to the hospital for further evaluation and management. The patient was agreeable to this plan. The patient was treated symptomatically and remained stable throughout their ED course. The patient is appropriate for transfer to the floor and was signed out to the accepting hospital service to assume care. IMPRESSION: 1. Acute appendicitis, unspecified acute appendicitis type 2. Thrombocytopenia (HCC) 3. Elevated serum creatinine 4. History of epilepsy 5. Constipation, unspecified constipation type Discussed with: Hospitalist and Surgery ED Disposition ED Disposition Hospitalize Condition -- Comment Reason for inpatient over two midnights: .. Social Determinants of Health (SDOH) were considered that may have impacted treatment/disposition. she did NOT appear to have any significant issues identified. . (See below) Shared Decision Making (SDM) utilized by explaining the results and plan of care for disposition and next steps of care with the patient and/or family. Potential impact of patient's medical/surgical comorbidities were assessed and considered when determining the treatment course and outcome. Discussed options for treatment with or without prescription medications. Physical Exam Vital Signs Reviewed Patient Vitals for the past 24 hrs: BP Temp Temp src Pulse Resp SpO2 Height Weight 06/05/24 0109 (!) 179/102 98.4 degrees F (36.9 degrees C) Oral (!) 55 16 98 % -- -- 06/04/24 2309 -- -- -- -- 18 -- -- -- (more content not included)... Normal [facility] LIPASEon 06-04-2024 Lipase [Catalytic activity/Vol] 66 U/L High 15-65 [facility] Comment on above: Result Comment: Corie ewing Hemolyzed Performed By: #### L [id number] #### [facility] [address] [place], [place] [address] Ismael Torre M.D. [id number] Lipaseon 06-04-2024 Lipase [Catalytic activity/Vol] 66 U/L High 15 - 65 U/L [facility] Comment on above: Slightly Hemolyzed Lipase [Catalytic activity/V ol]on 06-04-2024 Interpretation and review of laboratory results Abnormal [facility] MANUAL DIFFERENTIALon 2023 BASOPHILS - ABS (DIFF) 0.05 K/mcL Normal 0.00-0.30 [facility] Comment on above: Performed By: #### 4 [id number] #### LAB [address] [address] Ismael Torre M.D. [id number] BASOPHILS - REL (DIFF) 0.8 % [facility] Comment on above: Performed By: #### 4 [id number] #### LAB [address] [address] Ismael Torre M.D. [id number] EOSINOPHILS - ABS (DIFF) 0.00 K/mcL Normal 0.00-0.50 [facility] Comment on above: Performed By: #### 4 [id number] #### LAB [address] [address] Ismael Torre M.D. [id number] EOSINOPHILS - REL (DIFF) 0.0 % [facility] Comment on above: Performed By: #### 4 [id number] #### LAB [address] [address] Ismael Torre M.D. [id number] LYMPHOCYTES - ABS (DIFF) 1.57 K/mcL Normal 0.90-4.00 [facility] Comment on above: Performed By: #### 4 [id number] #### LAB [address] [address] Ismael Torre M.D. [id number] LYMPHOCYTES - REL (DIFF) 26.1 % [facility] Comment on above: Performed By: #### 4 [id number] #### LAB [address] [address] Ismael Torre M.D. [id number] METAMYELOCYTES-REL (DIFF) 0.9 % [facility] Comment on above: Performed By: #### 4 [id number] #### LAB [address] [address] Ismael Torre M.D. [id number] MONOCYTES - ABS (DIFF) 0.37 K/mcL Normal 0.30-0.90 [facility] Comment on above: Performed By: #### 4 [id number] #### LAB [address] [address] Ismael Torre M.D. [id number] MONOCYTES - REL (DIFF) 6.1 % Normal [facility] Comment on above: Performed By: #### [id number] #### LAB [address] [address] Ismael Torre M.D. [id number] NEUTROPHILS - ABS (DIFF) 4.03 K/mcL Normal 1.70-7.00 [facility] Comment on above: Performed By: #### [id number] #### LAB [address] [address] Ismael Torre M.D. [id number] NEUTROPHILS - REL (DIFF) 66.1 % Normal [facility] Comment on above: Performed By: #### [id number] #### LAB [address] [address] Ismael Torre M.D. [id number] MORPHOLOGYon 06-04-2024 PLATELET ESTIMATE Decreased Abnormal Normal [facility] Comment on above: Performed By: #### L [id number] #### LAB [address] [address] Ismael Torre M.D. [id number] POLY SCAN Few Normal [facility] Comment on above: Performed By: #### L [id number] #### LAB [address] [address] Ismael Torre M.D. [id number] RBC MORPH SCAN See Comment Normal [facility] Comment on above: Result Comment: RBC Indices confirmed with manual peripheral smear review. Performed By: #### L [id number] #### LAB [address] [address] Ismael Torre M.D. [id number] Manual Differential panel (B ld)on 06-04-2024 Basophils (Bld) [#/Vol] 0.05 10*3/uL [facility] Basophils/100 WBC (Bld) 0.8 % [facility] Eosinophils (Bld) [#/Vol] 0.00 10*3/uL [facility] Eosinophils/100 WBC (Bld) 0.0 % [facility] Lymphocytes (Bld) [#/Vol] 1.57 10*3/uL [facility] Lymphocytes/100 WBC (Bld) 26.1 % [facility] Metamyelocytes/100 WBC (Bld) 0.9 % [facility] Monocytes (Bld) [#/Vol] 0.37 10*3/uL [facility] Monocytes/100 WBC (Bld) 6.1 % [facility] Neutrophils (Bld) [#/Vol] 4.03 10*3/uL [facility] Neutrophils/100 WBC (Bld) 66.1 % [facility] NT PRO BNPon 06-04-2024 Natriuretic peptide B (Bld) [Mass/Vol] 726 pg/mL High 0-300 [facility] Comment on above: Order Comment: Pride Study Cut-offsRule In:< /= 50 Years >450 pg/mL51 Years - 75 Years >900 pg/mL76 Years - 99 Years >1800 pg/mLRule Out:All patients <300 pg/mL Performed By: #### [id number] #### MH [facility] [address] [place], [place] [address] Ismael Torre M.D. [id number] NT Pro BNPon 06-04-2024 Natriuretic peptide.B prohormone N-Terminal [Mass/Vol] 726 pg/mL High 0 - 300 pg/mL [facility] Natriuretic peptide.B prohor mamie N-Terminal [Mass/Vol]on 06-04-2024 Interpretation and review of laboratory results Abnormal [facility] [place] Pride Study Cut-offs Rule In: < /= 50 Years >450 pg/mL 51 Years - 75 Years >900 pg/mL 76 Years - 99 Years >1800 pg/mL Rule Out: All patients <300 pg/mL [facility] No Panel Informationon 06-04 Interpretation and review of laboratory results Abnormal [facility] Extra Tube Hold for add-ons. [facility] Comment on above: Auto resulted. [facility] TROPONINon 06-04-2024 BASELINE TROPONIN T NG/L 8 ng/L Normal <=14 [facility] Comment on above: Performed By: #### [id number] #### MH LAB [address] [address] Ismael Torre M.D. [id number] TROPONIN T INTERPRETATION Normal Normal [facility] Comment on above: Performed By: #### [id number] #### MH LAB [address] [address] Ismael Torre M.D. [id number] Troponin x 2 (Now and Repeat in 3 hours)on 06-04-2024 Troponin T 8 ng/L NINF - 14 ng/L [facility] Troponin T Interpretation Normal [facility] URINALYSISon 06-04-2024 BACTERIA, URINE None Seen Normal None Seen [facility] Comment on above: Order Comment: Micro scopic examination is performed on all urinalysis samples and only positive findings are reported. The test for blood on the chemical analytic portion of urinalysis may also be positive due to hemoglobinuria and myoglobinuria and if red blood cells are present they are quantified by microscopic examination. Performed By: #### L [id number] #### MH LAB [address] [address] Ismael Torre M.D. [id number] BILIRUBIN, URINE Negative Normal Negative [facility] Comment on above: Order Comment: Micro scopic examination is performed on all urinalysis samples and only positive findings are reported. The test for blood on the chemical analytic portion of urinalysis may also be positive due to hemoglobinuria and myoglobinuria and if red blood cells are present they are quantified by microscopic examination. Performed By: #### L [id number] #### MH LAB [address] [address] Ismael Torre M.D. [id number] BLOOD, URINE Negative Normal Negative [facility] Comment on above: Order Comment: Micro scopic examination is performed on all urinalysis samples and only positive findings are reported. The test for blood on the chemical analytic portion of urinalysis may also be positive due to hemoglobinuria and myoglobinuria and if red blood cells are present they are quantified by microscopic examination. Performed By: #### L [id number] #### MH LAB [address] [address] Ismael Torre M.D. [id number] Clarity (U) Clear Normal Clear [facility] Comment on above: Order Comment: Micro scopic examination is performed on all urinalysis samples and only positive findings are reported. The test for blood on the chemical analytic portion of urinalysis may also be positive due to hemoglobinuria and myoglobinuria and if red blood cells are present they are quantified by microscopic examination. Performed By: #### L [id number] #### MH LAB [address] [address] Ismael Torre M.D. [id number] Color (U) Colorless Normal Colorless, Yellow [facility] Comment on above: Order Comment: Micro scopic examination is performed on all urinalysis samples and only positive findings are reported. The test for blood on the chemical analytic portion of urinalysis may also be positive due to hemoglobinuria and myoglobinuria and if red blood cells are present they are quantified by microscopic examination. Performed By: #### L [id number] #### MH LAB [address] [address] Ismael Torre M.D. [id number] Glucose Ql (U) Negative Normal Negative [facility] Comment on above: Order Comment: Micro scopic examination is performed on all urinalysis samples and only positive findings are reported. The test for blood on the chemical analytic portion of urinalysis may also be positive due to hemoglobinuria and myoglobinuria and if red blood cells are present they are quantified by microscopic examination. Performed By: #### L [id number] #### MH LAB [address] [address] Ismael Torre M.D. [id number] Ketones Ql (U) Negative Normal Negative [facility] Comment on above: Order Comment: Micro scopic examination is performed on all urinalysis samples and only positive findings are reported. The test for blood on the chemical analytic portion of urinalysis may also be positive due to hemoglobinuria and myoglobinuria and if red blood cells are present they are quantified by microscopic examination. Performed By: #### L [id number] #### MH LAB [address] [address] Ismael Torre M.D. [id number] Leukocyte esterase Test strip Ql (U) Negative Normal Negative [facility] Comment on above: Order Comment: Micro scopic examination is performed on all urinalysis samples and only positive findings are reported. The test for blood on the chemical analytic portion of urinalysis may also be positive due to hemoglobinuria and myoglobinuria and if red blood cells are present they are quantified by microscopic examination. Performed By: #### L [id number] #### MH LAB [address] [address] Ismael Torre M.D. [id number] MUCUS, URINE Rare Normal None Seen, Rare [facility] Comment on above: Order Comment: Micro scopic examination is performed on all urinalysis samples and only positive findings are reported. The test for blood on the chemical analytic portion of urinalysis may also be positive due to hemoglobinuria and myoglobinuria and if red blood cells are present they are quantified by microscopic examination. Performed By: #### L [id number] #### MH LAB [address] [address] Ismael Torre M.D. [id number] NITRITE, URINE Negative Normal Negative [facility] Comment on above: Order Comment: Micro scopic examination is performed on all urinalysis samples and only positive findings are reported. The test for blood on the chemical analytic portion of urinalysis may also be positive due to hemoglobinuria and myoglobinuria and if red blood cells are present they are quantified by microscopic examination. Performed By: #### L [id number] #### MH LAB [address] [address] Ismael Torre M.D. [id number] pH (U) 8.0 [pH] High 5.0-7.0 [facility] Comment on above: Order Comment: Micro scopic examination is performed on all urinalysis samples and only positive findings are reported. The test for blood on the chemical analytic portion of urinalysis may also be positive due to hemoglobinuria and myoglobinuria and if red blood cells are present they are quantified by microscopic examination. Performed By: #### L [id number] #### MH LAB [address] [id number] Ismael Torre M.D. [id number] PROTEIN, URINE Negative Normal Negative [facility] Comment on above: Order Comment: Micro scopic examination is performed on all urinalysis samples and only positive findings are reported. The test for blood on the chemical analytic portion of urinalysis may also be positive due to hemoglobinuria and myoglobinuria and if red blood cells are present they are quantified by microscopic examination. Performed By: #### L [id number] #### MH LAB [address] [address] Ismael Torre M.D. [id number] RBC, URINE < Normal 0-3 [facility] Comment on above: Order Comment: Micro scopic examination is performed on all urinalysis samples and only positive findings are reported. The test for blood on the chemical analytic portion of urinalysis may also be positive due to hemoglobinuria and myoglobinuria and if red blood cells are present they are quantified by microscopic examination. Performed By: #### L [id number] #### MH LAB [address] [place] [address] Ismael Torre M.D. [id number] Specific gravity (U) [Rel density] 1.028 High 1.005-1.025 [facility] Comment on above: Order Comment: Micro scopic examination is performed on all urinalysis samples and only positive findings are reported. The test for blood on the chemical analytic portion of urinalysis may also be positive due to hemoglobinuria and myoglobinuria and if red blood cells are present they are quantified by microscopic examination. Performed By: #### L [id number] #### MH LAB [address] [address] Ismael Torre M.D. [id number] SQUAMOUS EPITHELIAL 2 /hpf Normal 0-4 [facility] Comment on above: Order Comment: Micro scopic examination is performed on all urinalysis samples and only positive findings are reported. The test for blood on the chemical analytic portion of urinalysis may also be positive due to hemoglobinuria and myoglobinuria and if red blood cells are present they are quantified by microscopic examination. Performed By: #### L [id number] #### MH LAB [address], [place] [address] Ismael Torre M.D. [id number] UROBILINOGEN, URINE <2.0 Normal <2.0 [facility] Comment on above: Order Comment: Micro scopic examination is performed on all urinalysis samples and only positive findings are reported. The test for blood on the chemical analytic portion of urinalysis may also be positive due to hemoglobinuria and myoglobinuria and if red blood cells are present they are quantified by microscopic examination. Performed By: #### L [id number] #### MH LAB [address], [place] [address] Ismael Torre M.D. [id number] WBC, URINE < Normal 0-5 [facility] Comment on above: Order Comment: Micro scopic examination is performed on all urinalysis samples and only positive findings are reported. The test for blood on the chemical analytic portion of urinalysis may also be positive due to hemoglobinuria and myoglobinuria and if red blood cells are present they are quantified by microscopic examination. Performed By: #### L [id number] #### MH LAB [address], [place] [address] Ismael Torre M.D. [id number] UrinalysisOrdered By: Chang Cates on 06-04-2024 Bacteria Auto Ql (U) None Seen None Se en /hpf [facility] Bilirubin Ql (U) Negative [facility] Clarity Refractometry automated (U) Clear Clear [facility] Color (U) Colorless Colorless, Yellow [facility] Epithelial cells.squamous Auto (Urine sed) [#/Area] 2 [facility] Glucose Auto test strip (U) [Mass/Vol] Negative Negative mg/dL [facility] Hemoglobin Auto test strip Ql (U) Negative Negative [facility] Interpretation and review of laboratory results Abnormal [facility] Ketones (U) [Mass/Vol] Negative Negative mg/dL [facility] Leukocyte esterase Auto test strip Ql (U) Negative Negative [facility] Mucus Auto (Urine sed) [#/Area] Rare None Seen, Rare /lpf [facility] Nitrite Auto test strip Ql (U) Negative Negative [facility] pH (U) 8.0 [pH] High 5.0 - 7.0 [facility] Protein (U) [Mass/Vol] Negative Negative mg/dL [facility] RBC Auto (Urine sed) [#/Area] [facility] Specific gravity (U) [Rel density] 1.028 High 1.005 - 1.025 [facility] Urobilinogen (U) [Mass/Vol] mg/dL NINF - 2.0 mg/dL [facility] WBC Auto (Urine sed) [#/Area] [facility] Microscopic examinat ion is performed on all urinalysis samples and only positive findings are reported. The test for blood on the chemical analytic portion of urinalysis may also be positive due to hemoglobinuria and myoglobinuria and if red blood cells are present they are quantified by microscopic examination. [facility] Office Visiton 05-31-2024 Follow-up visit [id number] DidiRosa Elena luReema J 1975 F Date Provider Department Center 05/31/2024 Jez[facility] None Family History Problem Relation Age of Onset Heart disease Mother Parkinson's Disease Mother Dementia Mother Thyroid disease Father Asthma Sister Seizures Sister Asthma Sister Asthma Brother No Known Problems Maternal Grandmother No Known Problems Maternal Grandfather No Known Problems Paternal Grandmother No Known Problems Paternal Grandfather No Known Problems Daughter Family Status - Relation Status Age at Mother Father Alive Sister Alive Sister Alive Brother Alive Maternal Grandmother Maternal Grandfather Paternal Grandmother Paternal Grandfather Daughter Alive Level of Service:55110 [place] OFFICE/OUTPATIENT NEW MODERATE MDM 45 MINUTES Reason for Visit and Comments: Psoriasis [[id number]] - New Patient (TONI) [facility] Progress Noteon 05-31-2024 Progress Note DATE OF SERVICE: 05/31/2024 PATIENT NAME: Reema Shah : 1975 AGE: 48 y.o. CLINIC NUMBER: [id number] Visit type: New Chief Complaint Patient presents with Psoriasis New Patient (TONI) Subjective HISTORY OF PRESENT ILLNESS: This is a 48 y.o. female who presents for C/o-rash located on the behind left ear and scalp x 5 months.patient states her neurologist thought it was psoriasis. Patient states this is usually related to stress.Admits redness, Denies flaking, scaling.Admits itching, Denies burning, pain.Admits joint pain/ joint stiffness to the fingers to both hands but just the left hand 2nd digit and patient stated that last night it felt like a needle was being poked through her finger. Patient states she was advised that this is nerve damage.Denies recent illness/fever/strep throat. Denies family hx of psoriasis. Patient states maybe her sister but is unsure.Admits previous treatment with Vaseline. Currently using dollar tree body wash, no lotion and unsure of the laundry detergent. Patient stated when she lived in [place] that is when the redness got worse and a provider in [place] gave her a solution to put on the areas. Patient has never seen a cartographic aide in the past. Are you , trying to become or ? No History of pacemaker/ defibrillator? No History of HIV/ Hep C? No Allergies to Lidocaine, Epinephrine, Latex or Adhesive? No REVIEW OF SYSTEMS: General/Constitutional Feels well; denies h/o fatigue, weight change, night sweats, fevers or chills. Lymphatic Denies swollen lymph nodes. Dermatologic As per HPI; otherwise negative There were no vitals filed for this visit. GENERAL APPEARANCE:?Alert & oriented x3, pleasant. Well developed, well nourished. PSYCH: appropriate mood and affect 1. Seborrheic dermatitis Left Postauricular Sulcus, Right Postauricular Area, Scalp Diffuse scaling with underlying erythema of the postauricular ears; minimal scaling of frontal scalp with underlying erythema [x]Chronic []Acute []Stable [x]Flaring/Exacerbation Educated and reassured. Treatment options, risks, benefits, and expectations reviewed. Start: -ketoconazole shampoo: Use to wash the scalp 3 to 4 times weekly allowing to sit 3 minutes before rinsing. May use regular shampoo and condition after. -triamcinolone ointment: Apply to affected areas BID x 2 weeks Stop using when clear. Repeat as needed for flares. Do not use on face, armpits, groin. Risks associated with custodial topical steroid use reviewed in detail. Patient was advised that topical steroid is being used for short term relief and not as maintenance. Overuse of topical steroids can result in permanent skin thinning/atrophy, skin discoloration, unwanted hair growth, acne and/or stretch hurd/striae. -clobetasol solution: massage into affected areas of scalp BID x 6 weeks then prn flares Related Medications ketoconazole (NIZOral) 2 % shampoo Use to wash the scalp 3 times weekly allowing to sit 3 minutes before rinsing. May use regular shampoo and condition after. Do not start before June 01, 2024. clobetasol (Temovate) 0.05 % external solution Apply to affected areas on scalp BID x 6 weeks Stop using when clear. Repeat as needed for flares. Do not use on face, armpits, groin. triamcinolone (Kenalog) 0.1 % ointment Apply to affected areas behind ears BID x 2 weeks Stop using when clear. Repeat as needed for flares. Orders Placed This Encounter Medications ketoconazole (NIZOral) 2 % shampoo Sig: Use to wash the scalp 3 times weekly allowing to sit 3 minutes before rinsing. May use regular shampoo and condition after. Do not start before June 01, 2024. Dispense: 120 mL Refill: 3 clobetasol (Temovate) 0.05 % external solution Sig: Apply to affected areas on scalp BID x 6 weeks Stop using when clear. Repeat as needed for flares. Do not use on face, armpits, groin. Dispense: 50 mL Refill: 3 triamcinolone (Kenalog) 0.1 % ointment Sig: Apply to affected areas behind ears BID x 2 weeks Stop using when clear. Repeat as needed for flares. Dispense: 80 g Refill: 1 Follow up in about 3 months (around 08/31/2024) for Krysten Derm f/u. Gayatri Bobby PA-C 05/31/24 3:32 PM REFERRING MD: [id number] [facility] [id number] [facility] BI MAMMO BILATERAL SCREENING TOMOSYNTHESISon 04-27-2024 BI MAMMO BILATERAL SCREENING TOMOSYNTHESIS Interpreted By: Bhupinder Bridges, STUDY: BI MAMMO BILATERAL SCREENING TOMOSYNTHESIS; 04/27/2024 3:15 pm ACCESSION NUMBER(S): [id number] ORDERING CLINICIAN: JEANIE AYALA INDICATION: Screening. COMPARISON: Digital mammograms dated 03/06/2022 FINDINGS: CC and MLO 2D digital mammograms and digital breast tomosynthesis images were obtained of the bilateral breasts. 3-D volume images were reconstructed in 4 views at an independent workstation as 1 mm slices through the breasts in both the CC and MLO projections. Density: There are areas of scattered fibroglandular tissue. No discrete mass or focal asymmetry is identified. No suspicious microcalcifications or foci of architectural distortion are seen. There has been no significant change. This study was interpreted with CAD. IMPRESSION: No mammographic evidence of malignancy. BI-RADS CATEGORY: BI-RADS Category: 1 Negative. Recommendation: Routine Screening Mammogram in 1 Year. Recommended Date: 1 Year. Laterality: Bilateral. MACRO: None Signed by: Bhupinder Bridges 04/28/2024 9:57 AM Dictation workstation: [id number] [facility] Office Visiton 04-17-2024 Follow-up visit [id number] Rosa Elena Shahoragrace Diop 1975 F Date Provider Department Center 04/17/2024 [id number]-OTTJYVALENTINA [facility]OP[facility] None Family History Problem Relation Age of Onset Heart disease Mother Parkinson's Disease Mother Dementia Mother Thyroid disease Father Asthma Sister Seizures Sister Asthma Sister Asthma Brother No Known Problems Maternal Grandmother No Known Problems Maternal Grandfather No Known Problems Paternal Grandmother No Known Problems Paternal Grandfather No Known Problems Daughter Family Status - Relation Status Age at Mother Father Alive Sister Alive Sister Alive Brother Alive Maternal Grandmother Maternal Grandfather Paternal Grandmother Paternal Grandfather Daughter Alive Level of Service:31331 [place] OFFICE/OUTPATIENT ESTABLISHED HIGH MDM 40 MIN Reason for Visit and Comments: Follow-up [222463] Seizures [97] Normal [facility] Progress Noteon 04-17-2024 Progress Note [facility] [address] [facility] [address] Dept: [phone] Dept Loc: [phone] Valentina Chopra MD CHIEF COMPLAINT: Chief Complaint Patient presents with Follow-up Seizures HISTORY OF PRESENT ILLNESS: The patient is a 48 y.o. who returns for seizures and tremors. She reports that she was in [facility] in [place]. She reports that she ended up in there because of seizures. There are reports from there that they were concerned that she had renal failure. We discussed the admission Her falling has worsened recently. She is in a motorized wheel chair today, but reports that when she is up she has a gait belt and walker on now. Her last seizure was 10 days ago. Her left hand flexed in a dystonic posture and then her left arm shook uncontrollably. She reports that it was short. She reports that when she went to the hospital she had a generalized convulsive event. She had some ability to call out to folks to tell them that she was about to have a seizure before those happened, but went out. Her hands flexed into a flexor posture. Past Medical History: has a past medical history of Anxiety, Chronic kidney disease, Epilepsy ([facility]), Essential hypertension, Gastro-esophageal reflux disease without esophagitis, Hypokalemia, Hypothyroidism, Obesity, Personal history of urinary (tract) infections, Psoriasis, Repeated falls, and Thrombocytopenia ([facility]). Past Surgical History: has a past surgical history that includes Breast reduction. Medications: Current Outpatient Medications: acetaminophen (Tylenol) 500 MG tablet, Take by mouth., Disp: , Rfl: albuterol 108 (90 Base) MCG/ACT inhaler, , Disp: , Rfl: allopurinol (Zyloprim) 300 MG tablet, Take 300 mg by mouth in the morning., Disp: , Rfl: atorvastatin (Lipitor) 20 MG tablet, , Disp: , Rfl: benzonatate (Tessalon) 200 MG capsule, Take by mouth., Disp: , Rfl: bisacodyl (Dulcolax) 10 MG suppository, Insert into the rectum Daily as needed for constipation., Disp: , Rfl: busPIRone (Buspar) 10 MG tablet, , Disp: , Rfl: Calcium + Vitamin D3 600-10 MG-MCG tablet, , Disp: , Rfl: clotrimazole-betamethas one (Lotrisone) cream, , Disp: , Rfl: Cyanocobalamin ER 1000 MCG tablet controlled-release, Take 1,000 mcg by mouth in the morning., Disp: , Rfl: divalproex (Depakote ER) 500 MG 24 hr tablet, Take 1 tablet (500 mg) by mouth 2 times daily., Disp: 30 tablet, Rfl: 2 famotidine (Pepcid) 20 MG tablet, , Disp: , Rfl: flurbiprofen (Ansaid) 100 MG tablet, Take by mouth every 8 hours as needed., Disp: , Rfl: guaiFENesin (Humibid 3) 400 MG tablet, Take 400 mg by mouth every 6 hours as needed., Disp: , Rfl: levothyroxine (Synthroid, Levoxyl) 25 MCG tablet, , Disp: , Rfl: lidocaine (Lidoderm) 5 % patch, Apply 1 patch topically Daily as needed for mild pain (1-3). Remove & discard patch within 12 hours or as directed by MD., Disp: , Rfl: lisinopril 20 MG tablet, , Disp: , Rfl: loperamide (Imodium A-D) 2 MG tablet, Take by mouth as needed for diarrhea., Disp: , Rfl: loratadine (Claritin) 10 MG tablet, Take 10 mg by mouth., Disp: , Rfl: LORazepam (Ativan) 1 MG tablet, Take 2 mg by mouth., Disp: , Rfl: magnesium hydroxide (Milk of Magnesia) 400 MG/5ML suspension, Take by mouth Daily as needed for constipation., Disp: , Rfl: magnesium oxide (Mag-Ox) 400 MG tablet, Take 400 mg by mouth in the morning., Disp: , Rfl: meclizine (Antivert) 25 MG tablet, Take 25 mg by mouth 3 times daily as needed., Disp: , Rfl: metoprolol tartrate (Lopressor) 25 MG tablet, 2 times daily., Disp: , Rfl: potassium chloride ER (Micro-K) 10 MEQ ER capsule, , Disp: , Rfl: senna-docusate (Lani-Colace) 8.6-50 MG tablet, Take 2 tablets by mouth Nightly as needed., Disp: , Rfl: sertraline (Zoloft) 100 MG tablet, Take 100 mg by mouth in the morning and 100 mg in the evening., Disp: , Rfl: Sodium Phosphates (FLEET ENEMA RE), Insert into the rectum as needed., Disp: , Rfl: amLODIPine (Norvasc) 10 MG tablet, Take 10 mg by mouth in the morning., Disp: , Rfl: Diclofenac Sodium (Voltaren) 1 % gel, Apply topically every 12 hours., Disp: , Rfl: divalproex (Depakote ER) 250 MG 24 hr tablet, , Disp: , Rfl: divalproex (Depakote ER) 500 MG 24 hr tablet, Take 500 mg by mouth., Disp: , Rfl: levETIRAcetam (Keppra) 500 MG tablet, Take 1 tablet (500 mg) by mouth 2 times daily., Disp: 60 tablet, Rfl: 11 primidone (Mysoline) 50 MG tablet, Take 4 tablets (200 mg) by mouth 2 times daily., Disp: 240 tablet, Rfl: 11 Filled Written ID Drug QTY Days Prescriber RX # Dispenser Refill Daily Dose* Pymt Type [employer] 11/08/2023 11/08/2023 1 Lorazepam 1 Mg Tablet 180.00 30 [place] Tav [id number] Par (1165) 0 6.00 LME Medicaid [place] 10/29/2023 09/08/2023 1 Lorazepam 1 Mg Tablet 50.00 10 Me Tav [id number] Par (1165) 1 5.00 LME Medicaid [place] 09/29/2023 09/08/2023 1 Lorazepam 1 Mg Tablet 150.00 30 Me Tav [id number] P (more content not included)... Normal [facility] BASIC METABOLIC PANELon 06-2 Anion gap [Moles/Vol] 16 mmol/L Normal 10-20 [facility] Comment on above: Order Comment: [facility] has implemented the eGFR calculation approach that does not have a coefficient for race that conforms to the NKF-ASN Task Force Recommendations. Performed By: #### [id number] #### [facility] [address] [place], [place] [address] Ismael Torre M.D. [id number] Calcium [Mass/Vol] 9.2 mg/dL Normal 8.4-10.2 [facility] Comment on above: Order Comment: [facility] has implemented the eGFR calculation approach that does not have a coefficient for race that conforms to the NKF-ASN Task Force Recommendations. Performed By: #### [id number] #### [facility] [address] [place], [place] [address] Ismael Torre M.D. [id number] Chloride [Moles/Vol] 103 mmol/L Normal 98-108 [facility] Comment on above: Order Comment: [facility] has implemented the eGFR calculation approach that does not have a coefficient for race that conforms to the NKF-ASN Task Force Recommendations. Performed By: #### [id number] #### LAB [address] [place], [place] [address] Ismael Torre M.D. [id number] Creatinine [Mass/Vol] 1.43 mg/dL High 0.40-1.10 [facility] Comment on above: Order Comment: [facility] has implemented the eGFR calculation approach that does not have a coefficient for race that conforms to the NKF-ASN Task Force Recommendations. Performed By: #### [id number] #### LAB [address] [place] [address] Ismael Torre M.D. [id number] EGFR 45 mL/min/1.73 m2 Low >=60 [facility] Comment on above: Order Comment: [facility] has implemented the eGFR calculation approach that does not have a coefficient for race that conforms to the NKF-ASN Task Force Recommendations. Result Comment: Frieda mated GFR was calculated using the 2020 CKD-EPI creatinine equation. Performed By: #### [id number] #### LAB [address] [place] [address] Ismael Torre M.D. [id number] Glucose [Mass/Vol] 81 mg/dL Normal 65-99 [facility] Comment on above: Order Comment: [facility] has implemented the eGFR calculation approach that does not have a coefficient for race that conforms to the NKF-ASN Task Force Recommendations. Performed By: #### [id number] #### LAB [address] [place] [address] Ismael Torre M.D. [id number] HCO3 (Bld) [Moles/Vol] 23 mmol/L Normal 21-32 [facility] Comment on above: Order Comment: [facility] has implemented the eGFR calculation approach that does not have a coefficient for race that conforms to the NKF-ASN Task Force Recommendations. Performed By: #### [id number] #### LAB [address] [place] [address] Ismael Torre M.D. [id number] Potassium [Moles/Vol] 4.4 mmol/L Normal 3.5-5.1 [facility] Comment on above: Order Comment: [facility] has implemented the eGFR calculation approach that does not have a coefficient for race that conforms to the NKF-ASN Task Force Recommendations. Performed By: #### [id number] #### LAB [address] [place], [place] [address] Ismael Torre M.D. [id number] Sodium [Moles/Vol] 138 mmol/L Normal 135-145 [facility] Comment on above: Order Comment: [facility] has implemented the eGFR calculation approach that does not have a coefficient for race that conforms to the NKF-ASN Task Force Recommendations. Performed By: #### [id number] #### LAB [address] [place], [place] [address] Ismael Torre M.D. [id number] Urea nitrogen [Mass/Vol] 21 mg/dL Normal 8-25 [facility] Comment on above: Order Comment: [facility] has implemented the eGFR calculation approach that does not have a coefficient for race that conforms to the NKF-ASN Task Force Recommendations. Performed By: #### 4 [id number] #### LAB [address] [place], [place] [address] Ismael Torre M.D. [id number] Urea nitrogen/Creatinine [Mass ratio] 14.7 mg/mg Normal 10.0-20.0 [facility] Comment on above: Order Comment: [facility] has implemented the eGFR calculation approach that does not have a coefficient for race that conforms to the NKF-ASN Task Force Recommendations. Performed By: #### [id number] #### [facility] [address] [place], [place] [address] Ismael Torre M.D. [id number] CBC WITH AUTO DIFFERENTIALon 04-07-2024 AUTO NRBC 0.0 % Normal [facility] Comment on above: Performed By: #### L [id number] #### [facility] [address] [place] [address] Ismael Torre M.D. [id number] AUTO NRBC ABS COUNT 0.00 K/mcL Normal 0.00-0.00 [facility] Comment on above: Performed By: #### L [id number] #### LAB [address] [place] [address] Ismael Torre M.D. [id number] BASOPHILS ABSOLUTE COUNT 0.02 K/mcL Normal 0.00-0.30 [facility] Comment on above: Performed By: #### L [id number] #### LAB [address] [place] [address] Ismael Torre M.D. [id number] Basophils/100 WBC (Bld) 0.3 % Normal [facility] Comment on above: Performed By: #### L [id number] #### LAB [address] [place] [address] Ismael Torre M.D. [id number] Eosinophils (Bld) [#/Vol] 0.07 10*3/uL Normal 0.00-0.50 [facility] Comment on above: Performed By: #### L [id number] #### LAB [address] [place] [address] Ismael Torre M.D. [id number] Eosinophils/100 WBC (Bld) 1.0 % Normal [facility] Comment on above: Performed By: #### L [id number] #### LAB [address] [place] [address] Ismael Torre M.D. [id number] Erythrocyte distribution width (RBC) [Ratio] 13.0 % Normal 11.6-14.8 [facility] Comment on above: Performed By: #### L [id number] #### LAB [address] [place] [address] Ismael Torre M.D. [id number] Hematocrit (Bld) [Volume fraction] 44.7 % Normal 36.0-46.0 [facility] Comment on above: Performed By: #### L [id number] #### LAB [address] [place] [address] Ismael Torre M.D. [id number] Hemoglobin (Bld) [Mass/Vol] 15.1 g/dL Normal 12.0-16.0 [facility] Comment on above: Performed By: #### L [id number] #### LAB [address] [place] [address] Ismael Torre M.D. [id number] IG ABSOLUTE 0.05 K/mcL Normal 0.00-0.30 [facility] Comment on above: Performed By: #### L [id number] #### LAB [address] [place] [address] Ismael Torre M.D. [id number] IG PERCENT 0.70 % Normal [facility] Comment on above: Result Comment: The IG parameter is the percentage of metamyelocytes, myelocytes and promyelocytes. An immature granulocyte count (IG) of 1% or more suggests the possibility of infection, an IG count of 3% is very likely related to an infection. Performed By: #### L [id number] #### LAB [address] [place] [address] Ismael Torre M.D. [id number] Lymphocytes (Bld) [#/Vol] 1.70 10*3/uL Normal 0.90-4.00 [facility] Comment on above: Performed By: #### L [id number] #### LAB [address] [place] [address] Ismael Torre M.D. [id number] Lymphocytes/100 WBC (Bld) 24.3 % [facility] Comment on above: Performed By: #### L [id number] #### LAB [address] [place] [address] Ismael Torre M.D. [id number] MCH (RBC) [Entitic mass] 30.6 pg Normal 26.0-34.0 [facility] Comment on above: Performed By: #### L [id number] #### LAB [address] [place] [address] Ismael Torre M.D. [id number] MCV (RBC) [Entitic vol] 90.7 fL Normal 80.0-100.0 [facility] Comment on above: Performed By: #### L [id number] #### LAB [address] [place] [address] Ismael Torre M.D. [id number] MEAN CORPUSCULAR HEMOGLOBIN CONC 33.8 g/dL Normal 31.0-37.0 [facility] Comment on above: Performed By: #### L [id number] #### LAB [address] [place] [address] Ismael Torre M.D. [id number] Monocytes (Bld) [#/Vol] 0.49 10*3/uL Normal 0.30-0.90 [facility] Comment on above: Performed By: #### L [id number] #### LAB [address] [place] [address] Ismael Torre M.D. [id number] Monocytes/100 WBC (Bld) 7.0 % Normal [facility] Comment on above: Performed By: #### L [id number] #### LAB [address] [place] [address] Ismael Torre M.D. [id number] NEUTROPHILS ABSOLUTE COUNT 4.68 K/mcL Normal 1.70-7.00 [facility] Comment on above: Performed By: #### L [id number] #### LAB [address] [place] [address] Ismael Torre M.D. [id number] Neutrophils/100 WBC (Bld) 66.7 % Normal [facility] Comment on above: Performed By: #### L [id number] #### LAB [address] [place] [address] Ismael Torre M.D. [id number] Platelet mean volume (Bld) [Entitic vol] 10.2 fL Normal 9.4-12.4 [facility] Comment on above: Performed By: #### L [id number] #### LAB [address] [place] [address] Ismael Torre M.D. [id number] Platelets (Bld) [#/Vol] 132 10*3/uL Low 150-400 [facility] Comment on above: Performed By: #### L [id number] #### [facility] [address] [place] [address] Ismael Torre M.D. [id number] RBC (Bld) [#/Vol] 4.93 10*6/uL Normal 4.00-5.20 [facility] Comment on above: Performed By: #### L [id number] #### [facility] [address] [place] [address] Ismael Torre M.D. [id number] WBC (Bld) [#/Vol] 7.01 10*3/uL Normal 4.50-11.00 [facility] Comment on above: Performed By: #### L [id number] #### [facility] [address] [place] [address] Ismael Torre M.D. [id number] ED Procedureon 04-07-2024 ED Procedure EKG 12-lead Date/Time: 04/07/2024 9:18 AM Performed by: Itzel Dumas MD Authorized by: Itzel Dumas MD Interpreted by ED attending physician Rhythm: sinus rhythm BPM: 93 QRS axis: normal Clinical impression: non-specific ECG Comments: Sinus arrhythmia AUTHENTICATED BY ITZEL DUMAS, ON 04/07/2024 09:19:19 Normal [facility] ED Prov Noteon 04-07-2024 ED Prov Note [facility] ED Attending Note: NAME: Reema Shah 48 y.o. CSN: [id number] PCP: Jyoti Gupta MD History: Chief Complaint: Tremors HPI: The history was obtained from the patient, EMS, and residential. Reema is a 48 y.o. female who presents with a chief complaint of Tremors. The patient is a 48-year-old female with a history of intentional tremor, epilepsy, nonepileptic seizure activity, who was transferred from her residential with complaints of jerking motions today. The patient has a history of myoclonic jerking activity and was just hospitalized in mid February for the same complaint. She was evaluated by neurology, thought to have a possible functional component, and discharged back to the residential. Today the symptoms have not changed. There have been no reported injuries or trauma. The patient is able to speak and ask questions during her shaking episodes here in the emergency department. PMHx: Past Medical History: Diagnosis Date Acquired thrombocytopenia ([facility]) [facility]/Lopez Shaikh Acute kidney injury (HCC) 05/22/2018 [facility]/Jonatan Chiu DO Anxiety Arm abrasion 06/19/2019 INFO GAINED FROM: /CONFUCIANIST ED VISIT NOTE --- AC GAO MD Calcaneal spur of right foot 2016 Documented on x-ray CKD (chronic kidney disease) Congestive heart failure (CHF) ([facility]) [facility]/Lopez Shaikh Contusion, hip 06/19/2019 INFO GAINED FROM: /CONFUCIANIST ED VISIT NOTE --- AC GAO MD Depression Epilepsy ([facility]) 08/06/2011 [facility]- Dr. Chopra Epilepsy ([facility]) 1994 Facet degeneration of lumbar region 10/14/2018 [facility]/Jono ALEXIS, Saulius Mild facet degenerative changes seen in the lower lumbar spine Fatty liver [facility]/Joe Mendieta MD Mild fibrofatty changes of the liver Fluid collection (edema) in the arms, legs, hands and feet 03/09/2018 Dr valentina Chopra Gastritis determined by endoscopy 12/29/2016 Dr. GonzalezDbavot-Ktyheyugh-vjqxql forated nonbleeding with biopsy 1 para 1 Hepatic steatosis [facility]/Heidy Jara MD Mild Hiatal hernia 12/29/[address] Lobo grade 4 Hypercholesterolemia [facility]/Jonatan Chiu DO Hypertension 2000 2000-present Insomnia [facility]/Lopez Shaikh Kidney stone [facility]opez Shaikh Laceration of head 06/19/2019 INFO GAINED FROM: /CONFUCIANIST ED VISIT NOTE --- AC GAO MD Lung nodule 12/15/2017 0.5 cm pleural based nodule in right middle lobe. Mild linear atelectasis Mitral valve prolapse [facility]Lopez Shaikh Motor seizure ([facility]) 03/16/2019 INFO GAINED FROM: /CONFUCIANIST ED VISIT --- BLAKE STEELECAREN Rectus diastasis [facility]/Heidy Jara MD Present with small wide necked perumbical ventral containing fat. Second degree burn of foot 04/23/2018 Right Foot - [facility] Sleep apnea Stroke (HCC) 2000 mild Tremor PMSx: Past Surgical History: Procedure Laterality Date Conner pH capsule placement 02/01/2017 Dr. Lobo BREAST REDUCTION 2000 bilateral EGD 12/29/2016 [facility] [place] [facility]-grade 4 hiatal hernia-nonperforating gastritis ESOPHAGEAL MANOMETRY 02/01/2017 HERNIA REPAIR 06/11/2017 Dr Richards INTRAUTERINE DEVICE INSERTION 02/15/2015 Dr. Pennie Meyers [facility] Laparoscopic LINX sphincter augmentation with cruroplasty 06/11/2017 Dr. Lobo WISDOM TOOTH EXTRACTION FAM. Hx: Family History Problem Relation Age of Onset Dementia Mother Hypertension Mother Heart disease Mother Diabetes Mother Type 2 Stroke Mother Heart failure Mother Seizures Mother Parkinson's Mother Thyroid disease Father Hypertension Father Hypothyroidism Father GI problems Father Seizures Sister Hypertension Sister Heart disease Sister Hypothyroidism Sister Anxiety Sister Sickle cell anemia Other No Known Problems Brother Asthma Sister Hypertension Sister SOC. Hx: Social History Socioeconomic History Marital status: Tobacco Use Smoking status: Former Packs/day: 0 Types: Cigarettes Smokeless tobacco: Never Vaping Use Vaping Use: Never used Substance and Sexual Activity Alcohol use: No Drug use: No Sexual activity: Not Currently Social Determinants of Health Food Insecurity: No Food Insecurity (03/04/2024) Hunger Vital Sign Worried About Running Out of Food in the Last Year: Never true Ran Out of Food in the Last Year: Never true Transportation Needs: No Transportation Needs (03/04/2024) PRAPARE - Transportation Lack of Transportation (Medical): No Lack of Transportation (Non-Medical): No Housing Stability: Low Risk (03/04/2024) Housing Stability Vital Sign Unable to Pay for Housing in the Last Year: No Number of Places Lived in the Last Year: 1 Unstable Housing in the Last Year: No MEDs: Previous Medications Medica (more content not included)... Normal [facility] MAGNESIUM LEVELon 04-07-2024 Magnesium [Mass/Vol] 1.8 mg/dL Normal 1.6-2.4 [facility] Comment on above: Performed By: #### L [id number] #### [facility] [address] [place], [place] [address] Ismael Torre M.D. [id number] URINALYSISon 04-07-2024 BACTERIA, URINE None Seen Normal None Seen [facility] Comment on above: Order Comment: Micro scopic examination is performed on all urinalysis samples and only positive findings are reported. The test for blood on the chemical analytic portion of urinalysis may also be positive due to hemoglobinuria and myoglobinuria and if red blood cells are present they are quantified by microscopic examination. Performed By: #### L [id number] #### [facility] [address] [place] [address] Ismael Torre M.D. [id number] BILIRUBIN, URINE Negative Normal Negative [facility] Comment on above: Order Comment: Micro scopic examination is performed on all urinalysis samples and only positive findings are reported. The test for blood on the chemical analytic portion of urinalysis may also be positive due to hemoglobinuria and myoglobinuria and if red blood cells are present they are quantified by microscopic examination. Performed By: #### L [id number] #### [facility] [address] [place] [address] Ismael Torre M.D. [id number] BLOOD, URINE Negative Normal Negative [facility] Comment on above: Order Comment: Micro scopic examination is performed on all urinalysis samples and only positive findings are reported. The test for blood on the chemical analytic portion of urinalysis may also be positive due to hemoglobinuria and myoglobinuria and if red blood cells are present they are quantified by microscopic examination. Performed By: #### L [id number] #### [facility] [address] [place] [address] Ismael Torre M.D. [id number] Clarity (U) Clear Normal Clear [facility] Comment on above: Order Comment: Micro scopic examination is performed on all urinalysis samples and only positive findings are reported. The test for blood on the chemical analytic portion of urinalysis may also be positive due to hemoglobinuria and myoglobinuria and if red blood cells are present they are quantified by microscopic examination. Performed By: #### L [id number] #### [facility] [address] [place] [id number] Ismael Torre M.D. [id number] Color (U) Yellow Normal Colorless, Yellow [facility] Comment on above: Order Comment: Micro scopic examination is performed on all urinalysis samples and only positive findings are reported. The test for blood on the chemical analytic portion of urinalysis may also be positive due to hemoglobinuria and myoglobinuria and if red blood cells are present they are quantified by microscopic examination. Performed By: #### L [id number] #### [facility] [address] [place] [address] Ismael Torre M.D. [id number] Glucose Ql (U) Negative Normal Negative [facility] Comment on above: Order Comment: Micro scopic examination is performed on all urinalysis samples and only positive findings are reported. The test for blood on the chemical analytic portion of urinalysis may also be positive due to hemoglobinuria and myoglobinuria and if red blood cells are present they are quantified by microscopic examination. Performed By: #### L [id number] #### [facility] [address] [place] [address] Ismael Torre M.D. [id number] Hyaline casts LM Ql (Urine sed) 0-2 Normal 0-2 [facility] Comment on above: Order Comment: Micro scopic examination is performed on all urinalysis samples and only positive findings are reported. The test for blood on the chemical analytic portion of urinalysis may also be positive due to hemoglobinuria and myoglobinuria and if red blood cells are present they are quantified by microscopic examination. Performed By: #### L [id number] #### [facility] [address] [place] [address] Ismael Torre M.D. [id number] Ketones Ql (U) Negative Normal Negative [facility] Comment on above: Order Comment: Micro scopic examination is performed on all urinalysis samples and only positive findings are reported. The test for blood on the chemical analytic portion of urinalysis may also be positive due to hemoglobinuria and myoglobinuria and if red blood cells are present they are quantified by microscopic examination. Performed By: #### L [id number] #### [facility] [address] [place], [place] [address] Ismael Torre M.D. [id number] Leukocyte esterase Test strip Ql (U) Small Abnormal Negative [facility] Comment on above: Order Comment: Micro scopic examination is performed on all urinalysis samples and only positive findings are reported. The test for blood on the chemical analytic portion of urinalysis may also be positive due to hemoglobinuria and myoglobinuria and if red blood cells are present they are quantified by microscopic examination. Performed By: #### L [id number] #### [facility] [address] [place], [place] [address] Ismael Torre M.D. [id number] MUCUS, URINE Rare Normal None Seen, Rare [facility] Comment on above: Order Comment: Micro scopic examination is performed on all urinalysis samples and only positive findings are reported. The test for blood on the chemical analytic portion of urinalysis may also be positive due to hemoglobinuria and myoglobinuria and if red blood cells are present they are quantified by microscopic examination. Performed By: #### L [id number] #### [facility] [address] [place], [place] [address] Ismael Torre M.D. [id number] NITRITE, URINE Negative Normal Negative [facility] Comment on above: Order Comment: Micro scopic examination is performed on all urinalysis samples and only positive findings are reported. The test for blood on the chemical analytic portion of urinalysis may also be positive due to hemoglobinuria and myoglobinuria and if red blood cells are present they are quantified by microscopic examination. Performed By: #### L [id number] #### [facility] [address] [place], [place] [address] Ismael Torre M.D. [id number] pH (U) 5.5 [pH] Normal 5.0-7.0 [facility] Comment on above: Order Comment: Micro scopic examination is performed on all urinalysis samples and only positive findings are reported. The test for blood on the chemical analytic portion of urinalysis may also be positive due to hemoglobinuria and myoglobinuria and if red blood cells are present they are quantified by microscopic examination. Performed By: #### L [id number] #### [facility] [address] [place] [id number] Ismael Torre M.D. [id number] PROTEIN, URINE Negative Normal Negative [facility] Comment on above: Order Comment: Micro scopic examination is performed on all urinalysis samples and only positive findings are reported. The test for blood on the chemical analytic portion of urinalysis may also be positive due to hemoglobinuria and myoglobinuria and if red blood cells are present they are quantified by microscopic examination. Performed By: #### L [id number] #### [facility] [address] [address] Ismael Torre M.D. [id number] RBC LM.HPF (Urine sed) [#/Area] 1 /[HPF] Normal 0-3 [facility] Comment on above: Order Comment: Micro scopic examination is performed on all urinalysis samples and only positive findings are reported. The test for blood on the chemical analytic portion of urinalysis may also be positive due to hemoglobinuria and myoglobinuria and if red blood cells are present they are quantified by microscopic examination. Performed By: #### L [id number] #### [facility] [address] [address] Ismael Torre M.D. [id number] Specific gravity (U) [Rel density] 1.022 Normal 1.005-1.025 [facility] Comment on above: Order Comment: Micro scopic examination is performed on all urinalysis samples and only positive findings are reported. The test for blood on the chemical analytic portion of urinalysis may also be positive due to hemoglobinuria and myoglobinuria and if red blood cells are present they are quantified by microscopic examination. Performed By: #### L [id number] #### [facility] [address] [address] Ismael Torre M.D. [id number] SQUAMOUS EPITHELIAL 14 /hpf High 0-4 [facility] Comment on above: Order Comment: Micro scopic examination is performed on all urinalysis samples and only positive findings are reported. The test for blood on the chemical analytic portion of urinalysis may also be positive due to hemoglobinuria and myoglobinuria and if red blood cells are present they are quantified by microscopic examination. Performed By: #### L [id number] #### [facility] [address] [place], [place] [address] Ismael Torre M.D. [id number] UROBILINOGEN, URINE <2.0 Normal <2.0 [facility] Comment on above: Order Comment: Micro scopic examination is performed on all urinalysis samples and only positive findings are reported. The test for blood on the chemical analytic portion of urinalysis may also be positive due to hemoglobinuria and myoglobinuria and if red blood cells are present they are quantified by microscopic examination. Performed By: #### L [id number] #### [facility] [address] [place], [place] [address] Ismael Torre M.D. [id number] WBC LM.HPF (Urine sed) [#/Area] 1 /[HPF] Normal 0-5 [facility] Comment on above: Order Comment: Micro scopic examination is performed on all urinalysis samples and only positive findings are reported. The test for blood on the chemical analytic portion of urinalysis may also be positive due to hemoglobinuria and myoglobinuria and if red blood cells are present they are quantified by microscopic examination. Performed By: #### L [id number] #### [facility] [address] [place], [place] [address] Ismael Torre M.D. [id number] URINE AEROBIC CULTUREon 03-19 URINE AEROBIC CULTURE URINE CULTURE < 10,000 CFU/mL of normal urogenital microbiota Normal [facility] Comment on above: Performed By: #### 4 [id number] #### [facility] [address] [place], [place] [address] Ismael Torre M.D. [id number] Office Visiton 04-04-2024 Follow-up visit [id number] Reema Shah 1975 F Date Provider Department Center 04/04/2024 MEJIA VAZQUEZ [facility] None Family History Problem Relation Age of Onset Heart disease Mother Parkinson's Disease Mother Dementia Mother Thyroid disease Father Asthma Sister Seizures Sister Asthma Sister Asthma Brother No Known Problems Maternal Grandmother No Known Problems Maternal Grandfather No Known Problems Paternal Grandmother No Known Problems Paternal Grandfather No Known Problems Daughter Family Status - Relation Status Age at Mother Father Alive Sister Alive Sister Alive Brother Alive Maternal Grandmother Maternal Grandfather Paternal Grandmother Paternal Grandfather Daughter Alive Level of Service:00634 [place] OFFICE/OUTPATIENT ESTABLISHED LOW MDM 20 MIN Reason for Visit and Comments: Follow-up [728626] - 3 month follow-up Normal [facility] PATINSon 04-04-2024 PATINS Call [phone] to schedule with seizure specialist Dr. Hernandez. Normal [facility] Progress Noteon 04-04-2024 Progress Note [facility] [address] [place] [address] Dept: [phone] Dept Loc: [phone] [facility] Consultation for Reema Shah : 1975 Today's Date: 04/04/2024 PCP: Jeanie Ayala Patient was seen accompanied by living facility staff. Patient gave permission to discuss medical information with facility staff present. Referral Source: No ref. provider found Recall HPI: Reema Shah is a 48 y.o. female with past medical history of epilepsy (on Keppra and lorazepam), tremors, CKD, anxiety, HTN, GERD, hypothyroidism, obesity, psoriasis, TTP who reports with chief complaint of frequent falls. Interval History: Last seen 01/03/24. At this visit we discussed continuing PT and OT for frequent falls due to weakness, obtaining new power chair, and obtaining R shoulder xray for chronic shoulder pain. R shoulder xray normal. Patient was admitted to [facility] 03/04/24 with concern for seizure episodes while in ED for chest pain. Home antiepileptic medication levels were checked and Keppra was increased. 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 Today, reports chief complaint of worsened tremor. Reports tremor has been worse since hospital admission reports shoulder pain has resolved spontaneously. Symptoms: Frequent falls. Attributes to LUE and LLE weakness and LE shaking. Unclear etiology for L hemiplegia - patient reports she was told she had a slight stroke in the past but no chronic focal findings on CT Brains. Patient cannot get MRI due to metal in abdomen. Frequent visits to ED due to falls with headstrike and RUE injuries. Most fall situations documented involve reaching for something or transferring. CT heads and radiographs have thus far been negative. Also endorses vertigo if she bends over. Manner of onset: Reports symptoms began after a 1993 head injury. Function: Mostly using WC for mobility. Only ambulates with walker short distances in her room to get to bathroom. Ambulating worsens pain in low back and bilateral knees and calves. Has powerchair. Lives in assisted living facility ([facility]). Moving to [facility] next month. Workup: CT Brain, CT C and L spine Treatments tried: PT in 2022 - did see improvement. PMH: Past Medical History: Diagnosis Date Anxiety Chronic kidney disease Epilepsy (HCC) Essential hypertension Gastro-esophageal reflux disease without esophagitis Hypokalemia Hypothyroidism Obesity Personal history of urinary (tract) infections Psoriasis Repeated falls Thrombocytopenia (HCC) PSH: Past Surgical History: Procedure Laterality Date BREAST REDUCTION Review of Systems: General: Denies fevers, chills, weight loss, weight gain Skin: Denies rashes ulcerations or lesions HEENT: Denies tinnitus, vertigo, blurry vision, headache Cardio: Denies chest pain, palpitations or edema Respiratory: Denies cough, sob, wheezing GI: Denies nausea, vomiting, constipation, diarrhea, abdominal pain, history of GI bleed : Denies incontinence, dysuria, frequency, urgency MSK: as per HPI Neuro: as Per HPI Psychiatric: Denies any change in mood, anxiety or depression Medications: Current Outpatient Medications Medication Sig Dispense Refill acetaminophen (Tylenol) 500 MG tablet Take by mouth. albuterol 108 (90 Base) MCG/ACT inhaler allopurinol (Zyloprim) 300 MG tablet Take 300 mg by mouth in the morning. amLODIPine (Norvasc) 10 MG tablet Take 10 mg by mouth in the morning. atorvastatin (Lipitor) 20 MG tablet benzonatate (Tessalon) 200 MG capsule Take by mouth. busPIRone (Buspar) 10 MG tablet Calcium + Vitamin D3 600-10 MG-MCG tablet clotrimazole-betamethas one (Lotrisone) cream Cyanocobalamin ER 1000 MCG tablet controlled-release Take 1,000 mcg by mouth in the morning. Diclofenac Sodium (Voltaren) 1 % gel Apply topically every 12 hours. divalproex (Depakote ER) 250 MG 24 hr tablet divalproex (Depakote ER) 500 MG 24 hr tablet Take 500 mg by mouth. divalproex (Depakote ER) 500 MG 24 hr tablet Take 1 tablet (500 mg) by mouth 2 times daily. 30 tablet 2 famotidine (Pepcid) 20 MG tablet flurbiprofen (Ansaid) 100 MG tablet Take by mouth every 8 hours as needed. guaiFENesin (Humibid 3) 400 MG tablet Take 400 mg by mouth every 6 hours as needed. levETIRAcetam (Keppra) 500 MG tablet 2 times daily. levothyroxine (Synthroid, Levoxyl) 25 MCG tablet lisinopril 20 MG tablet loperamide (Imodium A-D) 2 MG tablet Take by mouth as needed for diarrhea. loratadine (Claritin) 10 MG tablet Take 10 mg by mouth. LORazepam (Ativan) 1 MG tablet Take 2 mg by mouth. magnesium oxide (Mag-Ox) 400 MG tablet Take 400 mg by mouth in the morning. meclizine (Antivert) 25 MG table (more content not included)... Normal [facility] AMMONIAon 03-05-2024 AMMONIA 30 micromol/L Normal 12- [facility] Comment on above: Performed By: #### 4 [id number] #### [facility] [address] [address] Ismael Torre M.D. [id number] CBC WITH AUTO DIFFERENTIALon 03-05-2024 AUTO NRBC 0.0 % Normal [facility] Comment on above: Performed By: #### L [id number] #### [facility] [address] [place], [place] [address] Imsael Torre M.D. [id number] AUTO NRBC ABS COUNT 0.00 K/mcL Normal 0.00-0.00 [facility] Comment on above: Performed By: #### L [id number] #### [facility] [address] [place], [place] [address] Ismael Torre M.D. [id number] Erythrocyte distribution width (RBC) [Ratio] 12.6 % Normal 11.6-14.8 [facility] Comment on above: Performed By: #### L [id number] #### LAB [address] [address] Ismael Torre M.D. [id number] Hematocrit (Bld) [Volume fraction] 36.4 % Normal 36.0-46.0 [facility] Comment on above: Performed By: #### L [id number] #### [facility] [address] [address] Ismael Torre M.D. [id number] Hemoglobin (Bld) [Mass/Vol] 12.4 g/dL Normal 12.0-16.0 [facility] Comment on above: Performed By: #### L [id number] #### LAB [address] [address] Ismael Torre M.D. [id number] MCH (RBC) [Entitic mass] 31.4 pg Normal 26.0-34.0 [facility] Comment on above: Performed By: #### L [id number] #### [facility] [address] [address] Ismael Torre M.D. [id number] MCV (RBC) [Entitic vol] 92.2 fL Normal 80.0-100.0 [facility] Comment on above: Performed By: #### L [id number] #### LAB [address] [address] Ismael Torre M.D. [id number] MEAN CORPUSCULAR HEMOGLOBIN CONC 34.1 g/dL Normal 31.0-37.0 [facility] Comment on above: Performed By: #### L [id number] #### LAB [address] [address] Ismael Torre M.D. [id number] Platelet mean volume (Bld) [Entitic vol] 10.5 fL Normal 9.4-12.4 [facility] Comment on above: Performed By: #### L [id number] #### [facility] [address] [place], [place] [address] Ismael Torre M.D. [id number] Platelets (Bld) [#/Vol] 90 10*3/uL Low 150-400 [facility] Comment on above: Performed By: #### L [id number] #### [facility] [address] [place], [place] [address] Ismael Torre M.D. [id number] RBC (Bld) [#/Vol] 3.95 10*6/uL Low 4.00-5.20 [facility] Comment on above: Performed By: #### L [id number] #### [facility] [address] [id number] Ismael Torre M.D. [id number] WBC (Bld) [#/Vol] 5.16 10*3/uL Normal 4.50-11.00 [facility] Comment on above: Performed By: #### L [id number] #### [facility] [address] [address] Ismael Torre M.D. [id number] CONSULTon 03-05-2024 CONSULT Neurology Inpatient Consult [facility] Date of Service: 03/05/24 Admit Date: 03/04/2024 Service Type: New Patient Consultation Patient: Reema Shah Date of : 1975 (48 y.o.) Referring Provider: Refer to consult order in electronic medical record Assessment ASSESSMENT: Reema Shah is a 48 y.o. female who presented to [facility] on 03/04/2024 with jerking movements Patient with history of epilepsy, on Depakote and Keppra, presented with myoclonic jerking movements. Reportedly had some seizure activity in the ER which is not described in the chart; patient reports that she had an episode where her arms were shaking and she couldn't talk, but was able to hear what was going on around her. She says she bit her tongue, although no laceration is noted on exam. Her neuro exam is marked by poor effort as well as diffuse intention tremors and myoclonus. She has had issues with chronic tremors and shakes for many years, which are probably from longstanding Depakote exposure. Previous attempt to wean off Depakote led to breakthrough seizure based on chart review. Two prior EEGs here, from 2019 and 2016, were normal apart from mild generalized slowing. She reports having a prior EMU stay in [place] a few years ago, but I do not see any sign of that in the records from [facility], , or [facility], which are the only places I know of with EMU capacity in the [place] area. She says it characterized her seizures as grand mal which of course would not be terminology used by neurology anytime in the last couple of decades. There is, however, a chart history of pseudoseizures, which fits with her description of bilateral convulsions with preserved consciousness. I am highly suspicious for this but cannot prove it without confirming on EEG. Head CTs have been normal; cannot get MRI due to metal in abdomen. A DANISH scan, for tremors, back in 2017, was normal. Presumably these are tremors/shakes from longstanding Depakote exposure; a functional component is possible although I think the underlying tremor is definitely organic. Depakote level is on the lower side, around 30, which appears to be near her baseline of 40 or so. Keppra level pending but drawn after loading dose so will be unreliable. Previously has been on topiramate. Allergy to phenytoin reported. GI intolerance to gabapentin. I would increase her Keppra back to 750mg BID and continue her current Depakote dose. I would defer to her existing neurologist as to whether she needs a repeat EMU stay for spell capture since I don't have any records of such. Monitor her kidney and liver function overnight and anticipate discharge on 03/06 if remaining stable. Diagnoses: Epilepsy Myoclonic jerks Admitted with these risk variables:None. Please see assessment and plan for further details. PLAN: - continue Depakote ER 500mg BID, increase Keppra to 750mg BID. - monitor platelets, renal function, liver function - PT/OT - seizure precautions - patient does not drive - anticipate discharge on 03/06 if remaining stable - eventual follow up with existing neurologist - will follow along while here. Marzena Gresham MD Staff Neurologist [facility] [address] [id number] [address] Clinic 03/05/24 Parts of this note may have been dictated using [employer], a speech-recognition software. Syntax errors and sound-alike substitutions which may escape proofreading could be present. In such instances, the actual meaning can be extrapolated from the context. Subjective SUBJECTIVE: Chief Complaint/Reason for Consult: myoclonus History of Present Illness: Reema Shah is a 48 y.o. female who presented on 03/04/2024 for myoclonus. Neurology is consulted for the same. Patient with history of epilepsy since 1993, characterized by GTC activity. Follows with Dr. Gillette in [place]. Has been using Depakote and Keppra for a few years. Also on primidone as she has longstanding tremors going back to at least 2016. Previously on topiramate for seizure and migraines but has been off for years. GI intolerance to gabapentin. Did not tolerate phenytoin. Previous EEGs in 2019 and 2016 were normal. Head CTs have been normal. Says she can't get MRI due to metal in abdomen from a surgery, though whether that is actually not safe is unclear. She reports having 2 seizures in the ER. No chart record of such. She says they were grand mal and she bit her tongue, though tongue appears normal. She describes her seizures as her arms curl inward and start shaking, she can hear what's going on but cannot speak. She says she got an EMU stay years ago in [place] and it described her seizures as grand mal. There is a chart history of pseudoseizures but I don't have an (more content not included)... Normal [facility] HEMOGLOBIN A1Con 03-05-2024 Glucose [Mass/Vol] 103 mg/dL Normal 74-114 [facility] Comment on above: Performed By: #### L [id number] #### [facility] [address] [address] Ismael Torre M.D. [id number] HbA1c (Bld) [Mass fraction] 5.2 % Normal 4.2-5.6 [facility] Comment on above: Performed By: #### L [id number] #### LAB [address] [address] Ismael Torre M.D. [id number] MAGNESIUM LEVELon 03-05-2024 Magnesium [Mass/Vol] 1.8 mg/dL Normal 1.6-2.4 [facility] Comment on above: Performed By: #### L [id number] #### LAB [address] [address] Ismael Torre M.D. [id number] MANUAL DIFFERENTIALon 2023 BASOPHILS - ABS (DIFF) 0.00 K/mcL Normal 0.00-0.30 [facility] Comment on above: Performed By: #### 4 [id number] #### LAB [address] [address] Ismael Torre M.D. [id number] BASOPHILS - REL (DIFF) 0.0 % [facility] Comment on above: Performed By: #### 4 [id number] #### LAB [address] [address] Ismael Torre M.D. [id number] EOSINOPHILS - ABS (DIFF) 0.00 K/mcL Normal 0.00-0.50 [facility] Comment on above: Performed By: #### 4 [id number] #### LAB [address] [address] Ismael Torre M.D. [id number] EOSINOPHILS - REL (DIFF) 0.0 % [facility] Comment on above: Performed By: #### 4 [id number] #### LAB [address] [place] [address] Ismael Torre M.D. [id number] LYMPHOCYTE ATYPICAL - REL (DIFF) 1.7 % [facility] Comment on above: Performed By: #### 4 5456 #### LAB [address] [place] [address] Ismael Torre M.D. [id number] LYMPHOCYTES - ABS (DIFF) 1.47 K/mcL Normal 0.90-4.00 [facility] Comment on above: Performed By: #### 4 5401 #### LAB [address] [address] Ismael Torre M.D. [id number] LYMPHOCYTES - REL (DIFF) 26.7 % Normal [facility] Comment on above: Performed By: #### 4 0356 #### LAB [address] [address] Ismael Torre M.D. [id number] METAMYELOCYTES-REL (DIFF) 0.9 % Normal [facility] Comment on above: Performed By: #### 4 2556 #### LAB [address] [address] Ismael Torre M.D. [id number] MONOCYTES - ABS (DIFF) 0.49 K/mcL Normal 0.30-0.90 [facility] Comment on above: Performed By: #### 4 9275 #### LAB [address] [address] Ismael Torre M.D. [id number] MONOCYTES - REL (DIFF) 9.5 % Normal [facility] Comment on above: Performed By: #### 4 8562 #### LAB [address] [address] Ismael Torre M.D. [id number] NEUTROPHILS - ABS (DIFF) 3.20 K/mcL Normal 1.70-7.00 [facility] Comment on above: Performed By: #### 4 7856 #### LAB [address] [address] Ismael Torre M.D. [id number] NEUTROPHILS - REL (DIFF) 61.2 % [facility] Comment on above: Performed By: #### 4 0301 #### LAB [address] [address] Ismael Torre M.D. [id number] NUCLEATED RBC ABSOLUTE COUNT 0.05 K/mcL High 0.00-0.00 [facility] Comment on above: Performed By: #### 4 1662 #### [facility] [address] [id number] Ismael Torre M.D. [id number] NUCLEATED RED BLOOD CELLS 1 % Normal [facility] Comment on above: Performed By: #### 4 5456 #### [facility] [address] [place], [place] [address] Ismael Torre M.D. [id number] MORPHOLOGYon 03-05-2024 OVAL SCAN Few Normal [facility] Comment on above: Performed By: #### L [id number] #### [facility] [address] [id number] Ismael Torre M.D. [id number] POLY SCAN Moderate Normal [facility] Comment on above: Performed By: #### L [id number] #### [facility] [address] [id number] Ismael Torre M.D. [id number] RBC MORPH SCAN See Comment Normal [facility] Comment on above: Result Comment: RBC Indices confirmed with manual peripheral smear review. Performed By: #### L [id number] #### [facility] [address] [address] Ismael Torre M.D. [id number] PT/INRon 03-05-2024 INR Coag (PPP) [Relative time] 1.1 {INR} Normal 0.8-1.1 [facility] Comment on above: Order Comment: Rigoberto teran the induction phase of oral anticoagulation, the INR may not reflect the anticoagulation status of the patient. Therapeutic ranges for INR's are:Most clinical situations: INR 2.0-3.0Mechanical Prosthetic Valve: INR 2.5-3.5Critical: INR >5.0 Performed By: #### L [id number] #### [facility] [address] [id number] Ismael Torre M.D. [id number] PT Coag (PPP) [Time] 13.8 s Normal 11.8-14.3 [facility] Comment on above: Order Comment: Rigoberto teran the induction phase of oral anticoagulation, the INR may not reflect the anticoagulation status of the patient. Therapeutic ranges for INR's are:Most clinical situations: INR 2.0-3.0Mechanical Prosthetic Valve: INR 2.5-3.5Critical: INR >5.0 Performed By: #### L [id number] #### LAB [address] [place], [place] [address] Ismael Torre M.D. [id number] RENAL FUNCTION PANELon 03-05 Albumin [Mass/Vol] 3.6 g/dL Normal 3.2-5.2 [facility] Comment on above: Order Comment: [facility] has implemented the eGFR calculation approach that does not have a coefficient for race that conforms to the NKF-ASN Task Force Recommendations. Performed By: #### 4 6449 #### LAB [address] [place], [place] [address] Ismael Torre M.D. [id number] Anion gap [Moles/Vol] 15 mmol/L Normal 10-20 [facility] Comment on above: Order Comment: [facility] has implemented the eGFR calculation approach that does not have a coefficient for race that conforms to the NKF-ASN Task Force Recommendations. Performed By: #### 4 6449 #### LAB [address] [place], [place] [address] Ismael Torre M.D. [id number] Calcium [Mass/Vol] 8.8 mg/dL Normal 8.4-10.2 [facility] Comment on above: Order Comment: [facility] has implemented the eGFR calculation approach that does not have a coefficient for race that conforms to the NKF-ASN Task Force Recommendations. Performed By: #### 4 6449 #### [facility] [address] [place], [place] [address] Ismael Torre M.D. [id number] Chloride [Moles/Vol] 104 mmol/L Normal 98-108 [facility] Comment on above: Order Comment: [facility] has implemented the eGFR calculation approach that does not have a coefficient for race that conforms to the NKF-ASN Task Force Recommendations. Performed By: #### 4 6449 #### LAB [address] [id number] Ismael Torre M.D. [id number] Creatinine [Mass/Vol] 1.15 mg/dL High 0.40-1.10 [facility] Comment on above: Order Comment: [facility] has implemented the eGFR calculation approach that does not have a coefficient for race that conforms to the NKF-ASN Task Force Recommendations. Performed By: #### 4 6449 #### LAB [address] [address] Ismael Torre M.D. [id number] EGFR 58 mL/min/1.73 m2 Low >=60 [facility] Comment on above: Order Comment: [facility] has implemented the eGFR calculation approach that does not have a coefficient for race that conforms to the NKF-ASN Task Force Recommendations. Result Comment: Frieda mated GFR was calculated using the 2020 CKD-EPI creatinine equation. Performed By: #### 4 6449 #### LAB [address] [address] Ismael Torre M.D. [id number] Glucose [Mass/Vol] 90 mg/dL Normal 65-99 [facility] Comment on above: Order Comment: [facility] has implemented the eGFR calculation approach that does not have a coefficient for race that conforms to the NKF-ASN Task Force Recommendations. Performed By: #### 4 6449 #### LAB [address] [address] Ismael Torer M.D. [id number] HCO3 (Bld) [Moles/Vol] 25 mmol/L Normal 21-32 [facility] [facility] Comment on above: Order Comment: [facility] has implemented the eGFR calculation approach that does not have a coefficient for race that conforms to the NKF-ASN Task Force Recommendations. Performed By: #### 4 [id number] #### LAB [address] [address] Ismael Torre M.D. [id number] Phosphate [Mass/Vol] 2.7 mg/dL Normal 2.7-4.5 [facility] Comment on above: Order Comment: [facility] has implemented the eGFR calculation approach that does not have a coefficient for race that conforms to the NKF-ASN Task Force Recommendations. Performed By: #### 4 [id number] #### LAB [address] [address] Ismael Torre M.D. [id number] Potassium [Moles/Vol] 3.7 mmol/L Normal 3.5-5.1 [facility] Comment on above: Order Comment: [facility] has implemented the eGFR calculation approach that does not have a coefficient for race that conforms to the NKF-ASN Task Force Recommendations. Performed By: #### 4 [id number] #### LAB [address] [address] Ismael Torre M.D. [id number] Sodium [Moles/Vol] 140 mmol/L Normal 135-145 [facility] Comment on above: Order Comment: [facility] has implemented the eGFR calculation approach that does not have a coefficient for race that conforms to the NKF-ASN Task Force Recommendations. Performed By: #### 4 [id number] #### LAB [address] [address] Ismael Torre M.D. [id number] Urea nitrogen [Mass/Vol] 23 mg/dL Normal 8-25 [facility] Comment on above: Order Comment: [facility] has implemented the eGFR calculation approach that does not have a coefficient for race that conforms to the NKF-ASN Task Force Recommendations. Performed By: #### 4 [id number] #### LAB [address] [address] Ismael Torre M.D. [id number] Urea nitrogen/Creatinine [Mass ratio] 20.0 mg/mg Normal 10.0-20.0 [facility] Comment on above: Order Comment: [facility] has implemented the eGFR calculation approach that does not have a coefficient for race that conforms to the NKF-ASN Task Force Recommendations. Performed By: #### 4 [id number] #### LAB [address] [address] Ismael Torre M.D. [id number] TSHon 03-05-2024 TSH Qn 3.38 m[IU]/L Normal 0.27-4.20 [facility] Comment on above: Performed By: #### L [id number] #### LAB [address] [address] Ismael Torre M.D. [id number] ALCOHOL, MEDICALon ALCOHOL MEDICAL < Normal <10.0 [facility] Comment on above: Result Comment: Alco hol cutoff: <10.00 mg/dL = None Detected Performed By: #### L [id number] #### LAB [address] [address] Ismael Torre M.D. [id number] CBC WITH AUTO DIFFERENTIALon 03-04-2024 AUTO NRBC 0.0 % [facility] Comment on above: Performed By: #### L [id number] #### LAB [address] [address] Ismael Torre M.D. [id number] AUTO NRBC ABS COUNT 0.00 K/mcL Normal 0.00-0.00 [facility] Comment on above: Performed By: #### L [id number] #### LAB [address] [address] Ismael Torre M.D. [id number] BASOPHILS ABSOLUTE COUNT 0.02 K/mcL Normal 0.00-0.30 [facility] Comment on above: Performed By: #### L [id number] #### LAB [address] [address] Ismael Torre M.D. [id number] Basophils/100 WBC (Bld) 0.3 % Normal [facility] Comment on above: Performed By: #### L [id number] #### LAB [address] [place] [address] Ismael Torre M.D. [id number] Eosinophils (Bld) [#/Vol] 0.06 10*3/uL Normal 0.00-0.50 [facility] Comment on above: Performed By: #### L [id number] #### LAB [address] [address] Ismael Torre M.D. [id number] Eosinophils/100 WBC (Bld) 0.9 % Normal [facility] Comment on above: Performed By: #### L [id number] #### LAB [address] [address] Ismael Torer M.D. [id number] Erythrocyte distribution width (RBC) [Ratio] 12.6 % Normal 11.6-14.8 [facility] Comment on above: Performed By: #### L [id number] #### LAB [address] [address] Ismael Torre M.D. [id number] Hematocrit (Bld) [Volume fraction] 42.9 % Normal 36.0-46.0 [facility] Comment on above: Performed By: #### L [id number] #### LAB [address] [address] Ismael Torre M.D. [id number] Hemoglobin (Bld) [Mass/Vol] 14.6 g/dL Normal 12.0-16.0 [facility] Comment on above: Performed By: #### L [id number] #### LAB [address] [place] [address] Ismael Torre M.D. [id number] IG ABSOLUTE 0.06 K/mcL Normal 0.00-0.30 [facility] Comment on above: Performed By: #### L [id number] #### LAB [address] [address] Ismael Torre M.D. [id number] IG PERCENT 0.90 % Normal [facility] Comment on above: Result Comment: The IG parameter is the percentage of metamyelocytes, myelocytes and promyelocytes. An immature granulocyte count (IG) of 1% or more suggests the possibility of infection, an IG count of 3% is very likely related to an infection. Performed By: #### L [id number] #### LAB [address] [place] [address] Ismael Torre M.D. [id number] Lymphocytes (Bld) [#/Vol] 1.60 10*3/uL Normal 0.90-4.00 [facility] Comment on above: Performed By: #### L [id number] #### LAB [address] [address] Ismael Torre M.D. [id number] Lymphocytes/100 WBC (Bld) 23.8 % Normal [facility] Comment on above: Performed By: #### L [id number] #### LAB [address] [address] Ismael Torre M.D. [id number] MCH (RBC) [Entitic mass] 30.7 pg Normal 26.0-34.0 [facility] Comment on above: Performed By: #### L [id number] #### LAB [address] [address] Ismael Torre M.D. [id number] MCV (RBC) [Entitic vol] 90.3 fL Normal 80.0-100.0 [facility] Comment on above: Performed By: #### L [id number] #### LAB [address] [place] [address] Ismael Torre M.D. [id number] MEAN CORPUSCULAR HEMOGLOBIN CONC 34.0 g/dL Normal 31.0-37.0 [facility] Comment on above: Performed By: #### L [id number] #### LAB [address] [address] Ismael Torre M.D. [id number] Monocytes (Bld) [#/Vol] 0.46 10*3/uL Normal 0.30-0.90 [facility] Comment on above: Performed By: #### L [id number] #### LAB [address] [address] Ismael Torre M.D. [id number] Monocytes/100 WBC (Bld) 6.8 % Normal [facility] Comment on above: Performed By: #### L [id number] #### LAB [address] [address] Ismale Torre M.D. [id number] NEUTROPHILS ABSOLUTE COUNT 4.52 K/mcL Normal 1.70-7.00 [facility] Comment on above: Performed By: #### L [id number] #### LAB [address] [address] Ismael Torre M.D. [id number] Neutrophils/100 WBC (Bld) 67.3 % Normal [facility] Comment on above: Performed By: #### L [id number] #### [facility] LAB [address] [address] Ismael Torre M.D. [id number] Platelet mean volume (Bld) [Entitic vol] 10.8 fL Normal 9.4-12.4 [facility] Comment on above: Performed By: #### L [id number] #### LAB [address] [address] Ismael Torre M.D. [id number] Platelets (Bld) [#/Vol] 127 10*3/uL Low 150-400 [facility] Comment on above: Performed By: #### L [id number] #### [facility] LAB [address] [address] Ismael Torre M.D. [id number] RBC (Bld) [#/Vol] 4.75 10*6/uL Normal 4.00-5.20 [facility] Comment on above: Performed By: #### L [id number] #### [facility] LAB [address] [address] Ismael Torre M.D. [id number] WBC (Bld) [#/Vol] 6.72 10*3/uL Normal 4.50-11.00 [facility] Comment on above: Performed By: #### L [id number] #### [facility] LAB [address] [address] Ismael Torre M.D. [id number] COMPREHENSIVE METABOLIC PANE [facility] 03-04-2024 Albumin [Mass/Vol] 4.4 g/dL Normal 3.2-5.2 [facility] Comment on above: Order Comment: [facility] has implemented the eGFR calculation approach that does not have a coefficient for race that conforms to the NKF-ASN Task Force Recommendations. Performed By: #### L [id number] #### [facility] LAB [address] [address] Ismael Torre M.D. [id number] ALP [Catalytic activity/Vol] 102 U/L Normal 40-150 [facility] Comment on above: Order Comment: [facility] has implemented the eGFR calculation approach that does not have a coefficient for race that conforms to the NKF-ASN Task Force Recommendations. Performed By: #### L [id number] #### [facility] LAB [address] [address] Ismael Torre M.D. [id number] ALT [Catalytic activity/Vol] 29 U/L Normal 0-35 U/L [facility] Comment on above: Order Comment: [facility] has implemented the eGFR calculation approach that does not have a coefficient for race that conforms to the NKF-ASN Task Force Recommendations. Performed By: #### L [id number] #### LAB [address] [address] Ismael Torre M.D. [id number] Anion gap [Moles/Vol] 17 mmol/L Normal 10-20 [facility] Comment on above: Order Comment: [facility] has implemented the eGFR calculation approach that does not have a coefficient for race that conforms to the NKF-ASN Task Force Recommendations. Performed By: #### L [id number] #### [facility] LAB [address] [address] Ismael Torre M.D. [id number] AST [Catalytic activity/Vol] 43 U/L High 0-35 U/L [facility] Comment on above: Order Comment: [facility] has implemented the eGFR calculation approach that does not have a coefficient for race that conforms to the NKF-ASN Task Force Recommendations. Performed By: #### L [id number] #### [facility] LAB [address] [address] Ismael Torre M.D. [id number] Bilirubin [Mass/Vol] 0.2 mg/dL Normal 0.0-1.3 [facility] Comment on above: Order Comment: [facility] has implemented the eGFR calculation approach that does not have a coefficient for race that conforms to the NKF-ASN Task Force Recommendations. Performed By: #### L [id number] #### [facility] LAB [address] [address] Ismael Torre M.D. [id number] Calcium [Mass/Vol] 9.8 mg/dL Normal 8.4-10.2 [facility] Comment on above: Order Comment: [facility] has implemented the eGFR calculation approach that does not have a coefficient for race that conforms to the NKF-ASN Task Force Recommendations. Performed By: #### L [id number] #### [facility] LAB [address] [address] Ismael Torre M.D. [id number] Chloride [Moles/Vol] 104 mmol/L Normal 98-108 [facility] Comment on above: Order Comment: [facility] has implemented the eGFR calculation approach that does not have a coefficient for race that conforms to the NKF-ASN Task Force Recommendations. Performed By: #### L [id number] #### [facility] LAB [address] [address] Ismael Torre M.D. [id number] Creatinine [Mass/Vol] 1.52 mg/dL High 0.40-1.10 [facility] Comment on above: Order Comment: [facility] has implemented the eGFR calculation approach that does not have a coefficient for race that conforms to the NKF-ASN Task Force Recommendations. Performed By: #### L [id number] #### [facility] LAB [address] [address] Ismael Torre M.D. [id number] EGFR 42 mL/min/1.73 m2 Low >=60 [facility] Comment on above: Order Comment: [facility] has implemented the eGFR calculation approach that does not have a coefficient for race that conforms to the NKF-ASN Task Force Recommendations. Result Comment: Frieda mated GFR was calculated using the 2020 CKD-EPI creatinine equation. Performed By: #### L [id number] #### [facility] LAB [address] [address] Ismael Torre M.D. [id number] Glucose [Mass/Vol] 114 mg/dL High 65-99 [facility] Comment on above: Order Comment: [facility] has implemented the eGFR calculation approach that does not have a coefficient for race that conforms to the NKF-ASN Task Force Recommendations. Performed By: #### L [id number] #### [facility] LAB [address] [address] Ismael Torre M.D. [id number] HCO3 (Bld) [Moles/Vol] 22 mmol/L Normal 21-32 [facility] Comment on above: Order Comment: [facility] has implemented the eGFR calculation approach that does not have a coefficient for race that conforms to the NKF-ASN Task Force Recommendations. Performed By: #### L [id number] #### [facility] LAB [address] [address] Ismael Torre M.D. [id number] Potassium [Moles/Vol] 5.0 mmol/L Normal 3.5-5.1 [facility] Comment on above: Order Comment: [facility] has implemented the eGFR calculation approach that does not have a coefficient for race that conforms to the NKF-ASN Task Force Recommendations. Performed By: #### L [id number] #### [facility] LAB [address] [address] Ismael Torre M.D. [id number] Protein [Mass/Vol] 7.0 g/dL Normal 6.0-8.0 [facility] Comment on above: Order Comment: [facility] has implemented the eGFR calculation approach that does not have a coefficient for race that conforms to the NKF-ASN Task Force Recommendations. Performed By: #### L [id number] #### [facility] LAB [address] [id number] Ismael Torre M.D. [id number] Sodium [Moles/Vol] 138 mmol/L Normal 135-145 [facility] Comment on above: Order Comment: [facility] has implemented the eGFR calculation approach that does not have a coefficient for race that conforms to the NKF-ASN Task Force Recommendations. Performed By: #### L [id number] #### [facility] LAB [address] [address] Ismael Torre M.D. [id number] Urea nitrogen [Mass/Vol] 31 mg/dL High 8-25 [facility] Comment on above: Order Comment: [facility] has implemented the eGFR calculation approach that does not have a coefficient for race that conforms to the NKF-ASN Task Force Recommendations. Performed By: #### L [id number] #### [facility] LAB [address] [address] Ismael Torre M.D. [id number] Urea nitrogen/Creatinine [Mass ratio] 20.4 mg/mg High 10.0-20.0 [facility] Comment on above: Order Comment: [facility] has implemented the eGFR calculation approach that does not have a coefficient for race that conforms to the NKF-ASN Task Force Recommendations. Performed By: #### L [id number] #### [facility] LAB [address] [address] Ismael Torre M.D. [id number] DRUGS OF ABUSE SCREEN, URINE on 03-04-2024 AMPHETAMINE SCREEN, URINE Not detected Normal None Detected [facility] Comment on above: Order Comment: Scree n results should be used for treatment purposes only.Specimen will be kept for 2 weeks, if the sample is adequate. Confirmation testing can be initiated by calling the lab within 2 weeks. Result Comment: Urin e Amphetamine Cutoff: < 1000 ng/mL = None Detected Performed By: #### L [id number] #### [facility] LAB [address] [address] Ismael Torre M.D. [id number] BARBITURATE SCREEN URINE Positive Abnormal None Detected [facility] Comment on above: Order Comment: Scree n results should be used for treatment purposes only.Specimen will be kept for 2 weeks, if the sample is adequate. Confirmation testing can be initiated by calling the lab within 2 weeks. Result Comment: Urin e Barbiturates Cutoff: < 200 ng/mL = None Detected Performed By: #### L [id number] #### [facility] LAB [address] [address] Ismael Torre M.D. [id number] BENZODIAZEPINE SCREEN, URINE Positive Abnormal None Detected [facility] Comment on above: Order Comment: Scree n results should be used for treatment purposes only.Specimen will be kept for 2 weeks, if the sample is adequate. Confirmation testing can be initiated by calling the lab within 2 weeks. Result Comment: Urin e Benzodiazepine Cutoff: < 200 ng/mL = None Detected Performed By: #### L [id number] #### [facility] LAB [address] [place] [address] Ismael Torre M.D. [id number] BUPRENORPHINE, URINE Not detected Normal None Detected [facility] Comment on above: Order Comment: Scree n results should be used for treatment purposes only.Specimen will be kept for 2 weeks, if the sample is adequate. Confirmation testing can be initiated by calling the lab within 2 weeks. Result Comment: Urin e Buprenorphine Cutoff: < 5 ng/mL = None Detected Performed By: #### L [id number] #### [facility] LAB [address] [address] Ismael Torre M.D. [id number] CANNABINOID SCREEN URINE Not detected Normal None Detected [facility] Comment on above: Order Comment: Scree n results should be used for treatment purposes only.Specimen will be kept for 2 weeks, if the sample is adequate. Confirmation testing can be initiated by calling the lab within 2 weeks. Result Comment: Urin e Cannabinoids Cutoff: < 50 ng/mL = None Detected Performed By: #### L [id number] #### [facility] LAB [address] [address] Ismael Torre M.D. [id number] COCAINE, SCREEN URINE Not detected Normal None Detected [facility] Comment on above: Order Comment: Scree n results should be used for treatment purposes only.Specimen will be kept for 2 weeks, if the sample is adequate. Confirmation testing can be initiated by calling the lab within 2 weeks. Result Comment: Urin e Cocaine Cutoff: < 300 ng/mL = None Detected Performed By: #### L [id number] #### [facility] LAB [address] [address] Ismael Torre M.D. [id number] FENTANYL, URINE Not detected Normal None Detected [facility] Comment on above: Order Comment: Scree n results should be used for treatment purposes only.Specimen will be kept for 2 weeks, if the sample is adequate. Confirmation testing can be initiated by calling the lab within 2 weeks. Result Comment: Urin e Fentanyl Cutoff: < 1 ng/mL = None Detected Performed By: #### L [id number] #### [facility] LAB [address] [place] [address] Ismael Torre M.D. [id number] METHADONE SCREEN, URINE Not detected Normal None Detected [facility] Comment on above: Order Comment: Scree n results should be used for treatment purposes only.Specimen will be kept for 2 weeks, if the sample is adequate. Confirmation testing can be initiated by calling the lab within 2 weeks. Result Comment: Urin e Methadone Cutoff: < 300 ng/mL = None Detected Performed By: #### L [id number] #### [facility] LAB [address] [address] Ismael Torre M.D. [id number] OPIATE SCREEN URINE Not detected Normal None Detected [facility] Comment on above: Order Comment: Scree n results should be used for treatment purposes only.Specimen will be kept for 2 weeks, if the sample is adequate. Confirmation testing can be initiated by calling the lab within 2 weeks. Result Comment: Urin e Opiates Cutoff: < 300 ng/mL = None Detected Performed By: #### L [id number] #### [facility] LAB [address] [address] Ismael Torre M.D. [id number] OXYCODONE SCREEN, URINE Not detected Normal None Detected [facility] Comment on above: Order Comment: Scree n results should be used for treatment purposes only.Specimen will be kept for 2 weeks, if the sample is adequate. Confirmation testing can be initiated by calling the lab within 2 weeks. Result Comment: Urin e Oxycodone Cutoff: < 100 ng/mL = None Detected Performed By: #### L [id number] #### [facility] LAB [address] [address] Ismael Torre M.D. [id number] AMPHETAMINE SCREEN, URINE Not detected Normal None Detected [facility] Comment on above: Order Comment: Scree n results should be used for treatment purposes only.Specimen will be kept for 2 weeks, if the sample is adequate. Confirmation testing can be initiated by calling the lab within 2 weeks. Result Comment: Urin e Amphetamine Cutoff: < 1000 ng/mL = None Detected Performed By: #### [id number] #### [facility] LAB [address] [address] Ismael Torre M.D. [id number] BARBITURATE SCREEN URINE Positive Abnormal None Detected [facility] Comment on above: Order Comment: Scree n results should be used for treatment purposes only.Specimen will be kept for 2 weeks, if the sample is adequate. Confirmation testing can be initiated by calling the lab within 2 weeks. Result Comment: Urin e Barbiturates Cutoff: < 200 ng/mL = None Detected Performed By: #### [id number] #### [facility] LAB [address] [address] Ismael Torre M.D. [id number] BENZODIAZEPINE SCREEN, URINE Positive Abnormal None Detected [facility] Comment on above: Order Comment: Scree n results should be used for treatment purposes only.Specimen will be kept for 2 weeks, if the sample is adequate. Confirmation testing can be initiated by calling the lab within 2 weeks. Result Comment: Urin e Benzodiazepine Cutoff: < 200 ng/mL = None Detected Performed By: #### [id number] #### [facility] LAB [address] [address] Ismael Torre M.D. [id number] BUPRENORPHINE, URINE Not detected Normal None Detected [facility] Comment on above: Order Comment: Scree n results should be used for treatment purposes only.Specimen will be kept for 2 weeks, if the sample is adequate. Confirmation testing can be initiated by calling the lab within 2 weeks. Result Comment: Urin e Buprenorphine Cutoff: < 5 ng/mL = None Detected Performed By: #### [id number] #### LAB [address] [address] Ismael Torre M.D. [id number] CANNABINOID SCREEN URINE Not detected Normal None Detected [facility] Comment on above: Order Comment: Scree n results should be used for treatment purposes only.Specimen will be kept for 2 weeks, if the sample is adequate. Confirmation testing can be initiated by calling the lab within 2 weeks. Result Comment: Urin e Cannabinoids Cutoff: < 50 ng/mL = None Detected Performed By: #### [id number] #### [facility] LAB [address] [address] Ismael Torre M.D. [id number] COCAINE, SCREEN URINE Not detected Normal None Detected [facility] Comment on above: Order Comment: Scree n results should be used for treatment purposes only.Specimen will be kept for 2 weeks, if the sample is adequate. Confirmation testing can be initiated by calling the lab within 2 weeks. Result Comment: Urin e Cocaine Cutoff: < 300 ng/mL = None Detected Performed By: #### [id number] #### LAB [address] [address] Ismael Torre M.D. [id number] FENTANYL, URINE Not detected Normal None Detected [facility] Comment on above: Order Comment: Scree n results should be used for treatment purposes only.Specimen will be kept for 2 weeks, if the sample is adequate. Confirmation testing can be initiated by calling the lab within 2 weeks. Result Comment: Urin e Fentanyl Cutoff: < 1 ng/mL = None Detected Performed By: #### [id number] #### [facility] LAB [address] [address] Ismael Torre M.D. [id number] METHADONE SCREEN, URINE Not detected Normal None Detected [facility] Comment on above: Order Comment: Scree n results should be used for treatment purposes only.Specimen will be kept for 2 weeks, if the sample is adequate. Confirmation testing can be initiated by calling the lab within 2 weeks. Result Comment: Urin e Methadone Cutoff: < 300 ng/mL = None Detected Performed By: #### [id number] #### [facility] LAB [address] [place], [place] [address] Ismael Torre M.D. [id number] OPIATE SCREEN URINE Not detected Normal None Detected [facility] Comment on above: Order Comment: Scree n results should be used for treatment purposes only.Specimen will be kept for 2 weeks, if the sample is adequate. Confirmation testing can be initiated by calling the lab within 2 weeks. Result Comment: Urin e Opiates Cutoff: < 300 ng/mL = None Detected Performed By: #### [id number] #### LAB [address] [place], [place] [address] Ismael Torre M.D. [id number] OXYCODONE SCREEN, URINE Not detected Normal None Detected [facility] Comment on above: Order Comment: Scree n results should be used for treatment purposes only.Specimen will be kept for 2 weeks, if the sample is adequate. Confirmation testing can be initiated by calling the lab within 2 weeks. Result Comment: Urin e Oxycodone Cutoff: < 100 ng/mL = None Detected Performed By: #### [id number] #### LAB [address], [place] [address] Ismael Torre M.D. [id number] ED Prov Noteon 03-04-2024 ED Prov Note ED PROVIDER NOTE [facility] EMERGENCY DEPARTMENT NAME: Reema Shah AGE: 48 y.o. : 1975 VISIT DATE: 03/04/2024 CSN: [id number] PCP: Jyoti Gupta MD Chief Complaint Patient presents with Tremors This is a 48-year-old who states she has a history of epilepsy with grand mal seizure being followed by Dr. Chopra at [facility], anxiety, depression, chronic kidney disease, congestive heart failure, lung nodule and stroke presenting to emergency room with chief complaint of I been having many seizures. Patient states since this morning she is having recurrent seizures lasting only few seconds. On arrival she is noted to having severe twitching of her facial muscles as well as the upper extremity and upper torso muscles that is premature constant but quitting for few seconds at a given time before they restarted. Patient denies any trauma or fall. Patient does not admit to headache visual change or focal weakness. He denies fever chills or dysuria or diarrhea or vomiting. She states this activity is not consistent with her typical seizures. She states she is on multiple seizure medications including Depakote, levetiracetam and another antiseizure medication the name of which she does not recall. Past Medical History: Diagnosis Date Acquired thrombocytopenia ([facility]) [facility]/Lopez Shaikh Acute kidney injury (HCC) 05/22/2018 [facility]/Jonatan Chiu DO Anxiety Arm abrasion 06/19/2019 INFO GAINED FROM: /CONFUCIANIST ED VISIT NOTE --- AC GAO MD Calcaneal spur of right foot 2016 Documented on x-ray CKD (chronic kidney disease) Congestive heart failure (CHF) ([facility]) [facility]Lopez Shaikh Contusion, hip 06/19/2019 INFO GAINED FROM: /CONFUCIANIST ED VISIT NOTE --- AC GAO MD Depression Epilepsy ([facility]) 08/06/2011 [facility]- Dr. Chopra Epilepsy ([facility]) 1993 Facet degeneration of lumbar region 10/14/2018 [facility]/Jono ALEXIS, Moi Mild facet degenerative changes seen in the lower lumbar spine Fatty liver [facility]/Joe Mendieta MD Mild fibrofatty changes of the liver Fluid collection (edema) in the arms, legs, hands and feet 03/09/2018 Dr valentina Chopra Gastritis determined by endoscopy 12/29/2016 Dr. GonzalezZtjsyx-Lwksogvff-ewhysi forated nonbleeding with biopsy 1 para 1 Hepatic steatosis [facility]/Heidy Jara MD Mild Hiatal hernia 12/29/[address] Lobo grade 4 Hypercholesterolemia [facility]/Jonatan Chiu DO Hypertension 2000 2000-present Insomnia [facility]/Lopez Shaikh Kidney stone [facility] Laceration of head 06/19/2019 INFO GAINED FROM: /CONFUCIANIST ED VISIT NOTE --- AC GAO MD Lung nodule 12/15/2017 0.5 cm pleural based nodule in right middle lobe. Mild linear atelectasis Mitral valve prolapse [facility] Shaikh Motor seizure ([facility]) 03/16/2019 INFO GAINED FROM: /CONFUCIANIST ED VISIT --- BLAKE STEELECAREN Rectus diastasis [facility]/Heidy Jara MD Present with small wide necked perumbical ventral containing fat. Second degree burn of foot 04/23/2018 Right Foot - [facility] Sleep apnea Stroke (HCC) 2001 mild Tremor Past Surgical History: Procedure Laterality Date Conner pH capsule placement 02/01/2017 Dr. Lobo BREAST REDUCTION 2000 bilateral EGD 12/29/2016 [facility]-grade 4 hiatal hernia-nonperforating gastritis ESOPHAGEAL MANOMETRY 02/01/2017 HERNIA REPAIR 06/11/2017 Dr Richards INTRAUTERINE DEVICE INSERTION 02/15/2015 Dr. Pennie Meyers OBROSALINE Laparoscopic LINX sphincter augmentation with cruroplasty 06/11/2017 Dr. Lobo WISDOM TOOTH EXTRACTION Family History Problem Relation Age of Onset Dementia Mother Hypertension Mother Heart disease Mother Diabetes Mother Type 2 Stroke Mother Heart failure Mother Seizures Mother Parkinson's Mother Thyroid disease Father Hypertension Father Hypothyroidism Father GI problems Father Seizures Sister Hypertension Sister Heart disease Sister Hypothyroidism Sister Anxiety Sister Sickle cell anemia Other No Known Problems Brother Asthma Sister Hypertension Sister Social History Socioeconomic History Marital status: Tobacco Use Smoking status: Former Packs/day: 0 Types: Cigarettes Smokeless tobacco: Never Vaping Use Vaping Use: Never used Substance and Sexual Activity Alcohol use: No Drug use: No Sexual activity: Not Currently Previous Medications Medication Sig acetaminophen (TYLENOL) 325 MG tablet Take 2 (two) tablets (650 mg total) by mouth every 8 (eight) hours as needed for pain . albuterol (PROVENTIL) 2.5 mg /3 mL (0.083 %) nebulizer solution Take 3 mL (2.5 mg total) by nebulization every 6 (six) hours as needed for shortness of breath . albuterol (more content not included)... Normal [facility] LEVETIRACETAM LEVELon 2023 levETIRAcetam [Mass/Vol] 68.5 ug/mL High 6.0-46.0 [facility] Comment on above: Performed By: #### [id number] #### LAB [address], [place] [address] Ismael Torre M.D. [id number] PROTEIN / CREATININE RATIO, URINEon 03-04-2024 CREATININE,UR 18.6 mg/dL Normal [facility] Comment on above: Performed By: #### L [id number] #### [facility] [address] [place], [place] [address] Ismael Torre M.D. [id number] Protein (U) [Mass/Vol] 12.1 mg/dL Normal [facility] Comment on above: Performed By: #### L [id number] #### [facility] [address] [place] [id number] Ismael Torre M.D. [id number] PROTEIN CREATININE RATIO 0.7 ratio High 0.0-0.2 [facility] Comment on above: Performed By: #### L [id number] #### [facility] [address] [place] [address] Ismael Torre M.D. [id number] URINALYSISon 03-04-2024 BACTERIA, URINE None Seen Normal None Seen [facility] Comment on above: Order Comment: Micro scopic examination is performed on all urinalysis samples and only positive findings are reported. The test for blood on the chemical analytic portion of urinalysis may also be positive due to hemoglobinuria and myoglobinuria and if red blood cells are present they are quantified by microscopic examination. Performed By: #### L [id number] #### [facility] [address] [place] [address] Ismael Torre M.D. [id number] BILIRUBIN, URINE Negative Normal Negative [facility] Comment on above: Order Comment: Micro scopic examination is performed on all urinalysis samples and only positive findings are reported. The test for blood on the chemical analytic portion of urinalysis may also be positive due to hemoglobinuria and myoglobinuria and if red blood cells are present they are quantified by microscopic examination. Performed By: #### L [id number] #### [facility] [address] [place] [address] Ismael Torre M.D. [id number] BLOOD, URINE Small Abnormal Negative [facility] Comment on above: Order Comment: Micro scopic examination is performed on all urinalysis samples and only positive findings are reported. The test for blood on the chemical analytic portion of urinalysis may also be positive due to hemoglobinuria and myoglobinuria and if red blood cells are present they are quantified by microscopic examination. Performed By: #### L [id number] #### [facility] [address] [place] [address] Ismael Torre M.D. [id number] Clarity (U) Clear Normal Clear [facility] Comment on above: Order Comment: Micro scopic examination is performed on all urinalysis samples and only positive findings are reported. The test for blood on the chemical analytic portion of urinalysis may also be positive due to hemoglobinuria and myoglobinuria and if red blood cells are present they are quantified by microscopic examination. Performed By: #### L [id number] #### [facility] [address] [place] [address] Ismael Torre M.D. [id number] Color (U) Colorless Normal Colorless, Yellow [facility] Comment on above: Order Comment: Micro scopic examination is performed on all urinalysis samples and only positive findings are reported. The test for blood on the chemical analytic portion of urinalysis may also be positive due to hemoglobinuria and myoglobinuria and if red blood cells are present they are quantified by microscopic examination. Performed By: #### L [id number] #### [facility] [address] [place] [address] Ismael Torre M.D. [id number] Glucose Ql (U) Negative Normal Negative [facility] Comment on above: Order Comment: Micro scopic examination is performed on all urinalysis samples and only positive findings are reported. The test for blood on the chemical analytic portion of urinalysis may also be positive due to hemoglobinuria and myoglobinuria and if red blood cells are present they are quantified by microscopic examination. Performed By: #### L [id number] #### [facility] [address] [place] [address] Ismael Torre M.D. [id number] Ketones Ql (U) Negative Normal Negative [facility] Comment on above: Order Comment: Micro scopic examination is performed on all urinalysis samples and only positive findings are reported. The test for blood on the chemical analytic portion of urinalysis may also be positive due to hemoglobinuria and myoglobinuria and if red blood cells are present they are quantified by microscopic examination. Performed By: #### L [id number] #### [facility] [address] [place], [place] [address] Ismael Torre M.D. [id number] Leukocyte esterase Test strip Ql (U) Negative Normal Negative [facility] Comment on above: Order Comment: Micro scopic examination is performed on all urinalysis samples and only positive findings are reported. The test for blood on the chemical analytic portion of urinalysis may also be positive due to hemoglobinuria and myoglobinuria and if red blood cells are present they are quantified by microscopic examination. Performed By: #### L [id number] #### [facility] [address] [place] [address] Ismael Torre M.D. [id number] NITRITE, URINE Negative Normal Negative [facility] Comment on above: Order Comment: Micro scopic examination is performed on all urinalysis samples and only positive findings are reported. The test for blood on the chemical analytic portion of urinalysis may also be positive due to hemoglobinuria and myoglobinuria and if red blood cells are present they are quantified by microscopic examination. Performed By: #### L [id number] #### [facility] [address] [place] [id number] Ismael Torre M.D. [id number] pH (U) 7.5 [pH] High 5.0-7.0 [facility] Comment on above: Order Comment: Micro scopic examination is performed on all urinalysis samples and only positive findings are reported. The test for blood on the chemical analytic portion of urinalysis may also be positive due to hemoglobinuria and myoglobinuria and if red blood cells are present they are quantified by microscopic examination. Performed By: #### L [id number] #### [facility] [address] [place] [id number] Ismael Torre M.D. [id number] PROTEIN, URINE Negative Normal Negative [facility] Comment on above: Order Comment: Micro scopic examination is performed on all urinalysis samples and only positive findings are reported. The test for blood on the chemical analytic portion of urinalysis may also be positive due to hemoglobinuria and myoglobinuria and if red blood cells are present they are quantified by microscopic examination. Performed By: #### L [id number] #### [facility] [address] [place] [address] Ismael Torre M.D. [id number] RBC LM.HPF (Urine sed) [#/Area] 1 /[HPF] Normal 0-3 [facility] Comment on above: Order Comment: Micro scopic examination is performed on all urinalysis samples and only positive findings are reported. The test for blood on the chemical analytic portion of urinalysis may also be positive due to hemoglobinuria and myoglobinuria and if red blood cells are present they are quantified by microscopic examination. Performed By: #### L [id number] #### [facility] [address] [place] [address] Ismael Torre M.D. [id number] Specific gravity (U) [Rel density] 1.010 Normal 1.005-1.025 [facility] Comment on above: Order Comment: Micro scopic examination is performed on all urinalysis samples and only positive findings are reported. The test for blood on the chemical analytic portion of urinalysis may also be positive due to hemoglobinuria and myoglobinuria and if red blood cells are present they are quantified by microscopic examination. Performed By: #### L [id number] #### [facility] [address] [place] [address] Ismael Torre M.D. [id number] SQUAMOUS EPITHELIAL 2 /hpf Normal 0-4 [facility] Comment on above: Order Comment: Micro scopic examination is performed on all urinalysis samples and only positive findings are reported. The test for blood on the chemical analytic portion of urinalysis may also be positive due to hemoglobinuria and myoglobinuria and if red blood cells are present they are quantified by microscopic examination. Performed By: #### L [id number] #### [facility] [address] [place] [address] Ismael Torre M.D. [id number] UROBILINOGEN, URINE <2.0 Normal <2.0 [facility] Comment on above: Order Comment: Micro scopic examination is performed on all urinalysis samples and only positive findings are reported. The test for blood on the chemical analytic portion of urinalysis may also be positive due to hemoglobinuria and myoglobinuria and if red blood cells are present they are quantified by microscopic examination. Performed By: #### L [id number] #### [facility] [address] [place] [id number] Ismael Torre M.D. [id number] BACTERIA, URINE Rare Abnormal None Seen [facility] Comment on above: Order Comment: Micro scopic examination is performed on all urinalysis samples and only positive findings are reported. The test for blood on the chemical analytic portion of urinalysis may also be positive due to hemoglobinuria and myoglobinuria and if red blood cells are present they are quantified by microscopic examination. Performed By: #### L [id number] #### [facility] [address] [place] [address] Ismael Torre M.D. [id number] BILIRUBIN, URINE Negative Normal Negative [facility] Comment on above: Order Comment: Micro scopic examination is performed on all urinalysis samples and only positive findings are reported. The test for blood on the chemical analytic portion of urinalysis may also be positive due to hemoglobinuria and myoglobinuria and if red blood cells are present they are quantified by microscopic examination. Performed By: #### L [id number] #### [facility] [address] [place] [address] Ismael Torre M.D. [id number] BLOOD, URINE Small Abnormal Negative [facility] Comment on above: Order Comment: Micro scopic examination is performed on all urinalysis samples and only positive findings are reported. The test for blood on the chemical analytic portion of urinalysis may also be positive due to hemoglobinuria and myoglobinuria and if red blood cells are present they are quantified by microscopic examination. Performed By: #### L [id number] #### [facility] [address], [place] [address] Ismael Torre M.D. [id number] Clarity (U) Clear Normal Clear [facility] Comment on above: Order Comment: Micro scopic examination is performed on all urinalysis samples and only positive findings are reported. The test for blood on the chemical analytic portion of urinalysis may also be positive due to hemoglobinuria and myoglobinuria and if red blood cells are present they are quantified by microscopic examination. Performed By: #### L [id number] #### [facility] [address] [place] [address] Ismael Torre M.D. [id number] Color (U) Yellow Normal Colorless, Yellow [facility] Comment on above: Order Comment: Micro scopic examination is performed on all urinalysis samples and only positive findings are reported. The test for blood on the chemical analytic portion of urinalysis may also be positive due to hemoglobinuria and myoglobinuria and if red blood cells are present they are quantified by microscopic examination. Performed By: #### L [id number] #### [facility] [address] [place] [address] Ismael Torre M.D. [id number] Glucose Ql (U) Negative Normal Negative [facility] Comment on above: Order Comment: Micro scopic examination is performed on all urinalysis samples and only positive findings are reported. The test for blood on the chemical analytic portion of urinalysis may also be positive due to hemoglobinuria and myoglobinuria and if red blood cells are present they are quantified by microscopic examination. Performed By: #### L [id number] #### [facility] [address] [place] [address] Ismael Torre M.D. [id number] Ketones Ql (U) Negative Normal Negative [facility] Comment on above: Order Comment: Micro scopic examination is performed on all urinalysis samples and only positive findings are reported. The test for blood on the chemical analytic portion of urinalysis may also be positive due to hemoglobinuria and myoglobinuria and if red blood cells are present they are quantified by microscopic examination. Performed By: #### L [id number] #### [facility] [address] [place] [address] Ismael Torre M.D. [id number] Leukocyte esterase Test strip Ql (U) Trace Abnormal Negative [facility] Comment on above: Order Comment: Micro scopic examination is performed on all urinalysis samples and only positive findings are reported. The test for blood on the chemical analytic portion of urinalysis may also be positive due to hemoglobinuria and myoglobinuria and if red blood cells are present they are quantified by microscopic examination. Performed By: #### L [id number] #### [facility] [address] [place] [address] Ismael Torre M.D. [id number] NITRITE, URINE Negative Normal Negative [facility] Comment on above: Order Comment: Micro scopic examination is performed on all urinalysis samples and only positive findings are reported. The test for blood on the chemical analytic portion of urinalysis may also be positive due to hemoglobinuria and myoglobinuria and if red blood cells are present they are quantified by microscopic examination. Performed By: #### L [id number] #### [facility] [address] [place] [address] Ismael Torre M.D. [id number] pH (U) 6.5 [pH] Normal 5.0-7.0 [facility] Comment on above: Order Comment: Micro scopic examination is performed on all urinalysis samples and only positive findings are reported. The test for blood on the chemical analytic portion of urinalysis may also be positive due to hemoglobinuria and myoglobinuria and if red blood cells are present they are quantified by microscopic examination. Performed By: #### L [id number] #### [facility] [address] [place] [address] Ismael Torre M.D. [id number] PROTEIN, URINE Negative Normal Negative [facility] Comment on above: Order Comment: Micro scopic examination is performed on all urinalysis samples and only positive findings are reported. The test for blood on the chemical analytic portion of urinalysis may also be positive due to hemoglobinuria and myoglobinuria and if red blood cells are present they are quantified by microscopic examination. Performed By: #### L [id number] #### [facility] [address] [place] [address] Ismael Torre M.D. [id number] RBC LM.HPF (Urine sed) [#/Area] 10 /[HPF] High 0-3 [facility] Comment on above: Order Comment: Micro scopic examination is performed on all urinalysis samples and only positive findings are reported. The test for blood on the chemical analytic portion of urinalysis may also be positive due to hemoglobinuria and myoglobinuria and if red blood cells are present they are quantified by microscopic examination. Performed By: #### L [id number] #### [facility] [address] [place] [address] Ismael Torre M.D. [id number] Specific gravity (U) [Rel density] 1.018 Normal 1.005-1.025 [facility] Comment on above: Order Comment: Micro scopic examination is performed on all urinalysis samples and only positive findings are reported. The test for blood on the chemical analytic portion of urinalysis may also be positive due to hemoglobinuria and myoglobinuria and if red blood cells are present they are quantified by microscopic examination. Performed By: #### L [id number] #### [facility] [address] [place] [address] Ismael Torre M.D. [id number] SQUAMOUS EPITHELIAL 2 /hpf Normal 0-4 [facility] Comment on above: Order Comment: Micro scopic examination is performed on all urinalysis samples and only positive findings are reported. The test for blood on the chemical analytic portion of urinalysis may also be positive due to hemoglobinuria and myoglobinuria and if red blood cells are present they are quantified by microscopic examination. Performed By: #### L [id number] #### LAB [address] [place] [address] Ismael Torre M.D. [id number] UROBILINOGEN, URINE <2.0 Normal <2.0 [facility] Comment on above: Order Comment: Micro scopic examination is performed on all urinalysis samples and only positive findings are reported. The test for blood on the chemical analytic portion of urinalysis may also be positive due to hemoglobinuria and myoglobinuria and if red blood cells are present they are quantified by microscopic examination. Performed By: #### L [id number] #### [facility] [address] [place] [address] Ismael Torre M.D. [id number] WBC LM.HPF (Urine sed) [#/Area] 1 /[HPF] Normal 0-5 [facility] Comment on above: Order Comment: Micro scopic examination is performed on all urinalysis samples and only positive findings are reported. The test for blood on the chemical analytic portion of urinalysis may also be positive due to hemoglobinuria and myoglobinuria and if red blood cells are present they are quantified by microscopic examination. Performed By: #### L [id number] #### [facility] [address] [place] [address] Ismael Torre M.D. [id number] URINE AEROBIC CULTUREon 02-15 URINE AEROBIC CULTURE URINE CULTURE < 10,000 CFU/mL of normal urogenital microbiota Normal [facility] Comment on above: Performed By: #### [id number] #### [facility] [address] [place] [address] Ismael Torre M.D. [id number] VALPROIC ACID LEVELon 2023 VALPROIC ACID 25 mcg/mL Low 50-100 [facility] Comment on above: Performed By: #### L [id number] #### [facility] [address] [place] [address] Ismael Torre M.D. [id number] VALPROIC ACID 30 mcg/mL Low 50-100 [facility] Comment on above: Performed By: #### L [id number] #### [facility] [address] [place] [address] Ismael Torre M.D. [id number] VALPROIC ACID, FREEon 2023 [facility] VALPROIC ACID FREE <3 Low 5 - 25 [facility] Comment on above: Result Comment: Test Performed by: [place] [address] [employer] Operator: Benigno Madsen M.D. Ph.D.; CLIA# [id number] Performed By: #### L [id number] #### [facility] [address] [place] [address] Ismael Torre M.D. [id number] BASIC METABOLIC PANELon 02-15 Anion gap [Moles/Vol] 16 mmol/L Normal 10-20 [facility] Comment on above: Order Comment: [facility] has implemented the eGFR calculation approach that does not have a coefficient for race that conforms to the NKF-ASN Task Force Recommendations. Performed By: #### L [id number] #### LAB [address] [place], [place] [address] Ismael Torre M.D. [id number] Calcium [Mass/Vol] 8.9 mg/dL Normal 8.4-10.2 [facility] Comment on above: Order Comment: [facility] has implemented the eGFR calculation approach that does not have a coefficient for race that conforms to the NKF-ASN Task Force Recommendations. Performed By: #### L [id number] #### [facility] [address] [place], [place] [address] Ismael Torre M.D. [id number] Chloride [Moles/Vol] 104 mmol/L Normal 98-108 [facility] Comment on above: Order Comment: [facility] has implemented the eGFR calculation approach that does not have a coefficient for race that conforms to the NKF-ASN Task Force Recommendations. Performed By: #### L [id number] #### LAB [address] [place], [place] [address] Ismael Torre M.D. [id number] Creatinine [Mass/Vol] 1.43 mg/dL High 0.40-1.10 [facility] Comment on above: Order Comment: [facility] has implemented the eGFR calculation approach that does not have a coefficient for race that conforms to the NKF-ASN Task Force Recommendations. Performed By: #### L [id number] #### MH LAB [address] [place], [place] [address] Ismael Torre M.D. [id number] EGFR 45 mL/min/1.73 m2 Low >=60 [facility] Comment on above: Order Comment: [facility] has implemented the eGFR calculation approach that does not have a coefficient for race that conforms to the NKF-ASN Task Force Recommendations. Result Comment: Frieda mated GFR was calculated using the 2020 CKD-EPI creatinine equation. Performed By: #### L [id number] #### [facility] [address] [place] [id number] Ismael Torre M.D. [id number] Glucose [Mass/Vol] 100 mg/dL High 65-99 [facility] Comment on above: Order Comment: [facility] has implemented the eGFR calculation approach that does not have a coefficient for race that conforms to the NKF-ASN Task Force Recommendations. Performed By: #### L [id number] #### [facility] [address] [place] [address] Ismael Torre M.D. [id number] HCO3 (Bld) [Moles/Vol] 23 mmol/L Normal 21-32 [facility] Comment on above: Order Comment: [facility] has implemented the eGFR calculation approach that does not have a coefficient for race that conforms to the NKF-ASN Task Force Recommendations. Performed By: #### L [id number] #### [facility] [address] [place] [address] Ismael Torre M.D. [id number] Potassium [Moles/Vol] 4.9 mmol/L Normal 3.5-5.1 [facility] Comment on above: Order Comment: [facility] has implemented the eGFR calculation approach that does not have a coefficient for race that conforms to the NKF-ASN Task Force Recommendations. Result Comment: Slig htly Hemolyzed Performed By: #### L [id number] #### [facility] [address] [place] [address] Ismael Torre M.D. [id number] Sodium [Moles/Vol] 138 mmol/L Normal 135-145 [facility] Comment on above: Order Comment: [facility] has implemented the eGFR calculation approach that does not have a coefficient for race that conforms to the NKF-ASN Task Force Recommendations. Performed By: #### L [id number] #### [facility] [address] [place] [address] Ismael Torre M.D. [id number] Urea nitrogen [Mass/Vol] 23 mg/dL Normal 8-25 [facility] Comment on above: Order Comment: [facility] has implemented the eGFR calculation approach that does not have a coefficient for race that conforms to the NKF-ASN Task Force Recommendations. Performed By: #### L [id number] #### LAB [address] [place] [address] Ismael Torre M.D. [id number] Urea nitrogen/Creatinine [Mass ratio] 16.1 mg/mg Normal 10.0-20.0 [facility] Comment on above: Order Comment: [facility] has implemented the eGFR calculation approach that does not have a coefficient for race that conforms to the NKF-ASN Task Force Recommendations. Performed By: #### L [id number] #### LAB [address] [place] [address] Ismael Torre M.D. [id number] CBC WITH AUTO DIFFERENTIALon 03-03-2024 AUTO NRBC 0.0 % [facility] Comment on above: Performed By: #### 4 [id number] #### [facility] [address] [place] [address] Ismael Torre M.D. [id number] AUTO NRBC ABS COUNT 0.00 K/mcL Normal 0.00-0.00 [facility] Comment on above: Performed By: #### 4 5060 #### LAB [address] [place] [address] Ismael Torre M.D. [id number] BASOPHILS ABSOLUTE COUNT 0.01 K/mcL Normal 0.00-0.30 [facility] Comment on above: Performed By: #### 4 5060 #### LAB [address] [place] [address] Ismael Torre M.D. [id number] Basophils/100 WBC (Bld) 0.2 % [facility] Comment on above: Performed By: #### 4 5060 #### LAB [address] [place] [address] sImael Torre M.D. [id number] Eosinophils (Bld) [#/Vol] 0.06 10*3/uL Normal 0.00-0.50 [facility] Comment on above: Performed By: #### 4 [id number] #### LAB [address] [place] [address] Ismael Torre M.D. [id number] Eosinophils/100 WBC (Bld) 1.2 % Normal [facility] Comment on above: Performed By: #### 4 5060 #### LAB [address] [place] [address] Ismael Torre M.D. [id number] Erythrocyte distribution width (RBC) [Ratio] 12.6 % Normal 11.6-14.8 [facility] Comment on above: Performed By: #### 4 5060 #### LAB [address] [place] [address] Ismael Torre M.D. [id number] Hematocrit (Bld) [Volume fraction] 39.7 % Normal 36.0-46.0 [facility] Comment on above: Performed By: #### 4 5060 #### LAB [address] [place] [address] Ismael Torre M.D. [id number] Hemoglobin (Bld) [Mass/Vol] 13.6 g/dL Normal 12.0-16.0 [facility] Comment on above: Performed By: #### 4 5060 #### LAB [address] [place] [address] Ismael Torre M.D. [id number] IG ABSOLUTE 0.04 K/mcL Normal 0.00-0.30 [facility] Comment on above: Performed By: #### 4 5060 #### LAB [address] [place] [address] Ismael Torre M.D. [id number] IG PERCENT 0.80 % Normal [facility] Comment on above: Result Comment: The IG parameter is the percentage of metamyelocytes, myelocytes and promyelocytes. An immature granulocyte count (IG) of 1% or more suggests the possibility of infection, an IG count of 3% is very likely related to an infection. Performed By: #### 4 5060 #### LAB [address] [place] [address] Ismael Torre M.D. [id number] Lymphocytes (Bld) [#/Vol] 1.87 10*3/uL Normal 0.90-4.00 [facility] Comment on above: Performed By: #### 4 5060 #### LAB [address] [place] [address] Ismael Torre M.D. [id number] Lymphocytes/100 WBC (Bld) 36.4 % Normal [facility] Comment on above: Performed By: #### 4 5060 #### LAB [address] [place] [address] Ismael Torre M.D. [id number] MCH (RBC) [Entitic mass] 31.1 pg Normal 26.0-34.0 [facility] Comment on above: Performed By: #### 4 5060 #### LAB [address] [place] [address] Ismael Torre M.D. [id number] MCV (RBC) [Entitic vol] 90.6 fL Normal 80.0-100.0 [facility] Comment on above: Performed By: #### 4 5060 #### LAB [address] [place] [address] Ismael Torre M.D. [id number] MEAN CORPUSCULAR HEMOGLOBIN CONC 34.3 g/dL Normal 31.0-37.0 [facility] Comment on above: Performed By: #### 4 5060 #### LAB [address] [place] [address] Ismael Torre M.D. [id number] Monocytes (Bld) [#/Vol] 0.46 10*3/uL Normal 0.30-0.90 [facility] Comment on above: Performed By: #### 4 5060 #### LAB [address] [place] [address] Ismael Torre M.D. [id number] Monocytes/100 WBC (Bld) 8.9 % Normal [facility] Comment on above: Performed By: #### 4 5060 #### LAB [address] [place] [id number] Ismael Torre M.D. [id number] NEUTROPHILS ABSOLUTE COUNT 2.70 K/mcL Normal 1.70-7.00 [facility] Comment on above: Performed By: #### 4 5060 #### LAB [address] [place] [address] Ismael Torre M.D. [id number] Neutrophils/100 WBC (Bld) 52.5 % Normal [facility] Comment on above: Performed By: #### 4 5060 #### LAB [address] [place] [address] Ismael Torre M.D. [id number] Platelet mean volume (Bld) [Entitic vol] 10.2 fL Normal 9.4-12.4 [facility] Comment on above: Performed By: #### 4 5060 #### LAB [address] [place] [address] Ismael Torre M.D. [id number] Platelets (Bld) [#/Vol] 126 10*3/uL Low 150-400 [facility] Comment on above: Performed By: #### 4 5060 #### LAB [address] [place] [address] Ismael Torre M.D. [id number] RBC (Bld) [#/Vol] 4.38 10*6/uL Normal 4.00-5.20 [facility] Comment on above: Performed By: #### 4 5060 #### LAB [address] [place] [address] Ismael Torre M.D. [id number] WBC (Bld) [#/Vol] 5.14 10*3/uL Normal 4.50-11.00 [facility] Comment on above: Performed By: #### 4 5060 #### LAB [address] [place] [address] Ismael Torre M.D. [id number] ED Prov Noteon 03-03-2024 ED Prov Note [facility] EMERGENCY [facility]PARTMENT ATTENDING NOTE: NAME: Reema Shah CSN: [id number] 48 y.o. PCP: Jyoti Gupta MD History: Chief Complaint: Chest Pain HPI: The history was obtained from the patient. Reema is a 48 y.o. female who presents with a chief complaint of Chest Pain. Pain has been going on since last night. It is constant to the left upper chest. It is somewhat worse when she is exerting herself but is present at rest. Is not pleuritic. Not radiating anywhere. Not described as tearing or ripping. No recent prolonged immobilization. No hemoptysis. No diaphoresis or nausea. She rates it about a 3-4 out of 10; she came in because she is concerned that is persistent. PMHx: Past Medical History: Diagnosis Date Acquired thrombocytopenia ([facility]) [facility]/Lopez Shaikh Acute kidney injury ([facility]) 05/22/2018 [facility]/Jonatan Chiu DO Anxiety Arm abrasion 06/19/2019 INFO GAINED FROM: /CONFUCIANIST ED VISIT NOTE --- AC GAO MD Calcaneal spur of right foot 2016 Documented on x-ray CKD (chronic kidney disease) Congestive heart failure (CHF) ([facility]) [facility]/Lopez Shaikh Contusion, hip 06/19/2019 INFO GAINED FROM: /CONFUCIANIST ED VISIT NOTE --- AC GAO MD Depression Epilepsy ([facility]) 08/06/2011 [facility]- Dr. Chopra Epilepsy ([facility]) 1993 Facet degeneration of lumbar region 10/14/2018 [facility]/Jono ALEXIS, Moi Mild facet degenerative changes seen in the lower lumbar spine Fatty liver [facility]/Joe Mendieta MD Mild fibrofatty changes of the liver Fluid collection (edema) in the arms, legs, hands and feet 03/09/2018 Dr valentina Chopra Gastritis determined by endoscopy 12/29/2016 Dr. GonzalezNqtlov-Fxexjkryh-zbyopd forated nonbleeding with biopsy 1 para 1 Hepatic steatosis [facility]/Heidy Jara MD Mild Hiatal hernia 12/29/[address] Lobo grade 4 Hypercholesterolemia [facility]/Jonatan Chiu DO Hypertension 2000 2000-present Insomnia [facility]/Lopez Shaikh Kidney stone [facility]Lopez Shaikh Laceration of head 06/19/2019 INFO GAINED FROM: /CONFUCIANIST ED VISIT NOTE --- MENG ALEXIS,AC A Lung nodule 12/15/2017 0.5 cm pleural based nodule in right middle lobe. Mild linear atelectasis Mitral valve prolapse [facility]/Lopez Shaikh Motor seizure (HCC) 03/16/2019 INFO GAINED FROM: /CONFUCIANIST ED VISIT --- BLAKE STEELECRAEN Rectus diastasis [facility]/Heidy Jara MD Present with small wide necked perumbical ventral containing fat. Second degree burn of foot 04/23/2018 Right Foot - [facility] Sleep apnea Stroke (HCC) 2000 mild Tremor PMSx: Past Surgical History: Procedure Laterality Date Conner pH capsule placement 02/01/2017 Dr. Lobo BREAST REDUCTION 1999 [facility]-nonperforating gastritis ESOPHAGEAL MANOMETRY 02/01/2017 HERNIA REPAIR 06/11/2017 Dr Richards INTRAUTERINE DEVICE INSERTION 02/15/2015 Dr. Casper [facility] Laparoscopic LINX sphincter augmentation with cruroplasty 06/11/2017 Dr. Lobo WISDOM TOOTH EXTRACTION FAM. Hx: Family History Problem Relation Age of Onset Dementia Mother Hypertension Mother Heart disease Mother Diabetes Mother Type 2 Stroke Mother Heart failure Mother Seizures Mother Parkinson's Mother Thyroid disease Father Hypertension Father Hypothyroidism Father GI problems Father Seizures Sister Hypertension Sister Heart disease Sister Hypothyroidism Sister Anxiety Sister Sickle cell anemia Other No Known Problems Brother Asthma Sister Hypertension Sister SOC. Hx: Social History Socioeconomic History Marital status: Tobacco Use Smoking status: Former Packs/day: 0 Types: Cigarettes Smokeless tobacco: Never Vaping Use Vaping Use: Never used Substance and Sexual Activity Alcohol use: No Drug use: No Sexual activity: Not Currently Social Determinants of Health Food Insecurity: No Food Insecurity (03/04/2024) Hunger Vital Sign Worried About Running Out of Food in the Last Year: Never true Ran Out of Food in the Last Year: Never true Transportation Needs: No Transportation Needs (03/04/2024) PRAPARE - Transportation Lack of Transportation (Medical): No Lack of Transportation (Non-Medical): No Housing Stability: Low Risk (03/04/2024) Housing Stability Vital Sign Unable to Pay for Housing in the Last Year: No Number of Places Lived in the Last Year: 1 Unstable Housing in the Last Year: No MEDs: Previous Medications Medication Sig acetaminophen (TYLENOL) 325 MG tablet Take 2 (two) tablets (650 mg total) by mouth every 8 (eight) hours as needed for pain . albuterol (PROVENTIL) 2.5 mg /3 mL (0.083 %) nebulizer solution Take 3 mL (2.5 mg total) by nebuliz (more content not included)... Normal [facility] TROPONINon 03-03-2024 BASELINE TROPONIN T NG/L 8 ng/L Normal <=14 [facility] Comment on above: Performed By: #### L [id number] #### [facility] [address] [place], [place] [address] Ismael Torre M.D. [id number] TROPONIN T INTERPRETATION Normal Normal [facility] Comment on above: Performed By: #### L [id number] #### [facility] [address] [place], [place] [address] Ismael Torre M.D. [id number] XR CHEST PA/APon 03-03-2024 XR CHEST PA/AP EXAMINATION: XR CHEST PA/AP 03/03/2024 5:52 pm HISTORY: ORDERING SYSTEM PROVIDED HISTORY: cp/sob, TECHNOLOGIST PROVIDED HISTORY: Illness/Other Reason for exam: chest pain and sob Cancer History: n Surgery, RadiationHistory: yes Encounter Type: Initial Additional signs and symptoms: . ORDERING SYSTEM PROVIDED DIAGNOSIS CODES: COMPARISON: PA chest from 12/31/2023. FINDINGS: Trachea is midline. Mediastinum is not widened. Heart size, diaphragm and bony elements are intact. LINX implant is noted. The lungs are clear. No nodule or infiltrate or pneumothorax identified. IMPRESSION: Nonacute portable chest. Workstation ID: [id number] Dictated by: MARZENA PERSAUD on WedMarch 03, 2024 6:39:27 PM EDT Transcribed by: MAZRENA PERSAUD on WedMarch 03, 2024 6:39:27 PM EDT Finalized by: MARZENA PERSAUD on WedMarch 03, 2024 6:39:27 PM EDT [facility] Comment on above: Order Comment: Injur y/Trauma or Illness?:Illness/OtherHow long have you had these symptoms (acute/chronic)?:AcuteReason for exam?:chest pain and sobHistory of cancer?:nSurgeries, chemotherapy, or radiation?:yesType of Exam?:InitialAdditional signs and symptoms?:. CBC Auto Differentialon 12-16 Erythrocyte distribution width (RBC) [Entitic vol] 13.1 % 11.6 - 14.8 % [facility] [place] Hematocrit (Bld) [Volume fraction] 36.2 % 36.0 - 46.0 % [facility] [place] Hemoglobin (Bld) [Mass/Vol] 12.3 g/dL 12.0 - 16.0 g/dL [facility] [place] MCH (RBC) [Entitic mass] 31.5 pg 26.0 - 34.0 pg [facility] [place] MCHC (RBC) [Mass/Vol] 34.0 g/dL 31.0 - 37.0 g/dL [facility] MCV (RBC) [Entitic vol] 92.8 fL 80.0 - 100.0 fL [facility] Nucleated RBC (Bld) [#/Vol] 0.00 10*3/uL [facility] Nucleated RBC/100 WBC (Bld) [Ratio] 0.0 % [facility] Platelet mean volume (Bld) [Entitic vol] 10.8 fL 9.4 - 12.4 fL [facility] Platelets (Bld) [#/Vol] 104 10*3/uL Low [facility] RBC (Bld) [#/Vol] 3.90 10*6/uL Low [facility] [place] [facility] ealth WBC (Bld) [#/Vol] 4.00 10*3/uL Low [facility] [place] [facility] eah CBC and Diff Morphologyon Dacrocytes LM Ql (Bld) Few [facility] Ovalocytes LM Ql (Bld) Few [facility] Platelets Large Auto Ql (Bld) Few [facility] RBC morphology finding Nom (Bld) See Comment [facility] Comment on above: RBC Indices confirme d with manual peripheral smear review. CT Abdomen and Pelvis W cont rast Deepak 01-01-2024 1. No aortic dissection or aneurysm. 2. Stable mild pulmonary scarring, minimal lingular atelectasis and right middle lobe nodule. 3. There is a LINX device present. There is questionable wall thickening the distal esophagus which could indicate reflux esophagitis. 4. There are appendicoliths present, but there is no periappendiceal inflammation to indicate appendicitis. [facility]/mjr Workstation ID: [id number] [employer] EXAMINATION: CT DISSECTION WITH PELVIS HISTORY: ORDERING SYSTEM PROVIDED HISTORY: chest pain into back, TECHNOLOGIST PROVIDED HISTORY: Illness/Other Reason for exam: Per EMS patient chest pain started an hour ago and it radiates across her back. Patient complains of 10/10 chest pain Encounter Type: Initial Additional signs and symptoms: . ORDERING SYSTEM PROVIDED DIAGNOSIS CODES: COMPARISON: 1. December 31, 2023 chest radiograph. 2. August 16, 2021 CT chest without contrast. 3. 2017 CT abdomen pelvis without contrast. TECHNIQUE: Dose reduction techniques were achieved by using automated exposure control and/or adjustment of mA and/or kV according to patient size and/or use of iterative reconstruction technique. Coronal and sagittal MIP (maximum intensity projection) images were performed. CT dissection with pelvis. The chest was scanned with out contrast followed by the chest, abdomen and pelvis with contrast. Coronal and sagittal reformats were done. CONTRAST: IOPAMIDOL 370 MG IODINE/ML (76 %) INTRAVENOUS SOLUTION - 75 mL, FINDINGS: The heart is of normal size. No coronary artery calcifications are evident. There is no significant pericardial fluid. The thoracic aorta is of normal caliber. There is no intimal flap to indicate new aortic dissection. There is no acute intramural or mediastinal hematoma. There is good opacification of the pulmonary arteries which are of normal caliber. No filling defect is seen to indicate an embolus. No hilar or mediastinal masses are seen. There are no abnormally enlarged intrathoracic lymph nodes. There is a LINX device presence. There is no hiatal hernia. The wall of the distal esophagus may be mildly thickened although it is nondistended which does limit evaluation. Mild subpleural scarring is seen in both lungs. There is minimal atelectasis in the lingula. In the lateral segment of the right middle lobe is a noncalcified subpleural nodule measuring 6 mm. These findings are unchanged from the previous study. There is no pleural effusion or pneumothorax. No liver lesions are seen. The gallbladder is contracted. There is no biliary dilatation. The spleen is of normal size. It is inhomogeneous on the enhanced portion of the study which is likely due to timing of the contrast bolus. No pancreatic or adrenal abnormalities are seen. The kidneys are unremarkable. There is no hydronephrosis. No urinary tract calculi are seen. The urinary bladder is normal. The uterus is within normal limits. No suspicious adnexal masses are seen. There is no abdominal or pelvic lymphadenopathy. There is no abdominal aortic aneurysm or dissection. There is no retroperitoneum hematoma. Major aortic branch vessels are patent and there is no significant stenosis. There is no evidence of ileus or obstruction. No small or large bowel wall thickening or perienteric inflammation is evident. There are several appendicoliths. No periappendiceal edema or fluid is seen. There is no paraspinal gas, fluid or fluid collection. No acute bone findings are seen. [employer] Summer Kline MD - 01/01/2024 EXAMINATION: CT DISSECTION WITH PELVIS HISTORY: ORDERING SYSTEM PROVIDED HISTORY: chest pain into back, TECHNOLOGIST PROVIDED HISTORY: Illness/Other Reason for exam: Per EMS patient chest pain started an hour ago and it radiates across her back. Patient complains of 10/10 chest pain Encounter Type: Initial Additional signs and symptoms: . ORDERING SYSTEM PROVIDED DIAGNOSIS CODES: COMPARISON: 1. December 31, 2023 chest radiograph. 2. August 16, 2021 CT chest without contrast. 3. 2017 CT abdomen pelvis without contrast. TECHNIQUE: Dose reduction techniques were achieved by using automated exposure control and/or adjustment of mA and/or kV according to patient size and/or use of iterative reconstruction technique. Coronal and sagittal MIP (maximum intensity projection) images were performed. CT dissection with pelvis. The chest was scanned with out contrast followed by the chest, abdomen and pelvis with contrast. Coronal and sagittal reformats were done. CONTRAST: IOPAMIDOL 370 MG IODINE/ML (76 %) INTRAVENOUS SOLUTION - 75 mL, FINDINGS: The heart is of normal size. No coronary artery calcifications are evident. There is no significant pericardial fluid. The thoracic aorta is of normal caliber. There is no intimal flap to indicate new aortic dissection. There is no acute intramural or mediastinal hematoma. There is good opacification of the pulmonary arteries which are of normal caliber. No filling defect is seen to indicate an embolus. No hilar or mediastinal masses are seen. There are no abnormally enlarged intrathoracic lymph nodes. There is a LINX device presence. There is no hiatal hernia. The wall of the distal esophagus may be mildly thickened although it is nondistended which does limit evaluation. Mild subpleural scarring is seen in both lungs. There is minimal atelectasis in the lingula. In the lateral segment of the right middle lobe is a noncalcified subpleural nodule measuring 6 mm. These findings are unchanged from the previous study. There is no pleural effusion or pneumothorax. No liver lesions are seen. The gallbladder is contracted. There is no biliary dilatation. The spleen is of normal size. It is inhomogeneous on the enhanced portion of the study which is likely due to timing of the contrast bolus. No pancreatic or adrenal abnormalities are seen. The kidneys are unremarkable. There is no hydronephrosis. No urinary tract calculi are seen. The urinary bladder is normal. The uterus is within normal limits. No suspicious adnexal masses are seen. There is no abdominal or pelvic lymphadenopathy. There is no abdominal aortic aneurysm or dissection. There is no retroperitoneum hematoma. Major aortic branch vessels are patent and there is no significant stenosis. There is no evidence of ileus or obstruction. No small or large bowel wall thickening or perienteric inflammation is evident. There are several appendicoliths. No periappendiceal edema or fluid is seen. There is no paraspinal gas, fluid or fluid collection. No acute bone findings are seen. IMPRESSION: 1. No aortic dissection or aneurysm. 2. Stable mild pulmonary scarring, minimal lingular atelectasis and right middle lobe nodule. 3. There is a LINX device present. There is questionable wall thickening the distal esophagus which could indicate reflux esophagitis. 4. There are appendicoliths present, but there is no periappendiceal inflammation to indicate appendicitis. [facility]/mjr Workstation ID: [id number] [facility] CT Abdomen and Pelvis W cont rast IVOrdered By: Summer Mauro on 01-01-2024 [facility] Work Phone: Cobalamin (Vitamin B12) [Mas s/Vol]on 01-01-2024 Interpretation and review of laboratory results Normal [facility] Comprehensive metabolic 2000 panelOrdered By: Pratibha Russo on 01-01-2024 Albumin [Mass/Vol] 3.5 g/dL 3.2 - 5.2 g/dL [facility] ALP [Catalytic activity/Vol] 87 U/L 40 - 150 U/L [facility] ALT [Catalytic activity/Vol] 11 U/L 0-35 U/L [facility] Anion gap [Moles/Vol] 16 mmol/L 10 - 2 0 mmol/L [facility] AST [Catalytic activity/Vol] 19 U/L 0-35 U/L [facility] Bilirubin [Mass/Vol] mg/dL 0.0 - 1 .3 mg/dL [facility] Calcium [Mass/Vol] 8.4 mg/dL 8.4 - 10. 2 mg/dL [facility] [facility] Chloride [Moles/Vol] 104 mmol/L 98 - 10 8 mmol/L [facility] Creatinine [Mass/Vol] 1.39 mg/dL High 0.40 - 1.10 mg/dL [facility] GFR/1.73 sq M.predicted CKD-EPI (S/P/Bld) [Vol rate/Area] 46 Low - PINF [facility] Comment on above: Estimated GFR was ca lculated using the 2020 CKD-EPI creatinine equation. Glucose [Mass/Vol] 132 mg/dL High 65 - 99 mg/dL [facility] HCO3 [Moles/Vol] 21 mmol/L 21 - 32 mmol/L [facility] Potassium [Moles/Vol] 3.9 mmol/L 3.5 - 5.1 mmol/L [facility] Protein [Mass/Vol] 5.8 g/dL Low 6.0 - 8.0 g/dL [facility] Sodium [Moles/Vol] 137 mmol/L 135 - 145 mmol/L [facility] Urea nitrogen [Mass/Vol] 26 mg/dL High 8 - 25 mg/dL [facility] Urea nitrogen/Creatinine [Mass ratio] 18.7 mg/mg 10.0 - 20.0 [facility] has implemented the eGFR calculation approach that does not have a coefficient for race that conforms to the NKF-ASN Task Force Recommendations. [facility] HbA1c (Bld) [Mass fraction]o n 01-01-2024 Average glucose Estimated from glycated hemoglobin (Bld) [Mass/Vol] 108 mg/dL 74 - 114 mg/dL [facility] Interpretation and review of laboratory results Normal [facility] Hemoglobin A1con 01-01-2024 HbA1c (Bld) [Mass fraction] 5.4 % 4.2 - 5.6 % [facility] Magnesiumon 01-01-2024 Magnesium [Mass/Vol] 1.7 mg/dL 1.6 - 2 .4 mg/dL [facility] Magnesium [Mass/Vol]on 12-31 Interpretation and review of laboratory results Normal [facility] Manual Differential panel (B ld)on 01-01-2024 Basophils (Bld) [#/Vol] 0.00 10*3/uL [facility] Basophils/100 WBC (Bld) 0.0 % [facility] Eosinophils (Bld) [#/Vol] 0.00 10*3/uL [facility] Eosinophils/100 WBC (Bld) 0.0 % [facility] Lymphocytes (Bld) [#/Vol] 1.23 10*3/uL [facility] Lymphocytes/100 WBC (Bld) 30.8 % [facility] Metamyelocytes/100 WBC (Bld) 1.9 % [facility] Monocytes (Bld) [#/Vol] 0.08 10*3/uL Low [facility] Monocytes/100 WBC (Bld) 1.9 % [facility] Neutrophils (Bld) [#/Vol] 2.69 10*3/uL [facility] Neutrophils/100 WBC (Bld) 65.4 % [facility] Nucleated RBC (Bld) [#/Vol] 0.04 10*3/uL High [facility] Nucleated RBC/100 WBC (Bld) [Ratio] 1 % [facility] No Panel Informationon 12-31 Interpretation and review of laboratory results Abnormal [facility] Interpretation and review of laboratory results Abnormal [facility] Phosphoruson 01-01-2024 Phosphate [Mass/Vol] 2.3 mg/dL Low 2.7 - 4 .5 mg/dL [facility] RESPIRATORY PCR PANELon 12-16 RESPIRATORY PCR PANEL INFLUENZA A FILMAR RAY: Not Detected INFLUENZA B FILM ARRAY: Not Detected PARAINFLUENZA VIRUS 1: Not Detected PARAINFLUENZA VIRUS 2: Not Detected PARAINFLUENZA VIRUS 3: Not Detected PARAINFLUENZA VIRUS 4: Not Detected RESPIRATORY SYNCYTIAL VIRUS FILM ARRAY: Not Detected HUMAN METAPNEUMOVIRUS: Not Detected HUMAN RHINOVIRUS/ENTEROVIRUS: Not Detected ADENOVIRUS FILM ARRAY: Not Detected CORONAVIRUS 229E: Not Detected CORONAVIRUS HKU1: Not Detected CORONAVIRUS NL63: Not Detected CORONAVIRUS OC43: Not Detected BORDETELLA PARAPERTUSSIS: Not Detected BORDETELLA PERTUSSIS: Not Detected MYCOPLASMA PNEUMONIAE: Not Detected CHLAMYDIA PNEUMONIAE: Not Detected SARS-COV-2 (BIOFIRE): Not Detected Normal Not Detected [facility] Comment on above: Performed By: #### L [id number] #### [facility] [address] [place] [id number] Ismael Torre M.D. [id number] Respiratory pathogens DNA an d RNA panel CHIARA+non-probe (Nph)Ordered By: Eva Garcia on 01-01-2024 Adenovirus DNA CHIARA+non-probe Ql (Nph) Not detected Not Detected [facility] B. parapertussis [id number] DNA CHIARA+non-probe Ql (Nph) Not detected Not Detected [facility] B. pertussis toxin promoter region CHIARA+non-probe Ql (Nph) Not detected Not Detected [facility] C. pneumoniae DNA CHIARA+non-probe Ql (Nph) Not detected Not Detected [facility] FLUAV RNA CHIARA+non-probe Ql (Nph) Not detected Not Detected [facility] FLUBV RNA CHIARA+non-probe Ql (Nph) Not detected Not Detected [facility] HCoV 229E RNA CHIARA+non-probe Ql (Nph) Not detected Not Detected [facility] HCoV HKU1 RNA CHIARA+non-probe Ql (Nph) Not detected Not Detected [facility] HCoV NL63 RNA CHIARA+non-probe Ql (Nph) Not detected Not Detected [facility] HCoV OC43 RNA CHIARA+non-probe Ql (Nph) Not detected Not Detected [facility] hMPV RNA CHIARA+non-probe Ql (Nph) Not detected Not Detected [facility] Interpretation and review of laboratory results Normal [facility] M. pneumoniae DNA CHIARA+non-probe Ql (Nph) Not detected Not Detected [facility] Parainfluenza virus 1 RNA CHIARA+non-probe Ql (Nph) Not detected Not Detected [facility] Parainfluenza virus 2 RNA CHIARA+non-probe Ql (Nph) Not detected Not Detected [facility] Parainfluenza virus 3 RNA CHIARA+non-probe Ql (Nph) Not detected Not Detected [facility] Parainfluenza virus 4 RNA CHIARA+non-probe Ql (Nph) Not detected Not Detected [facility] Rhinovirus+Enteroviru s RNA CHIARA+non-probe Ql (Nph) Not detected Not Detected [facility] RSV RNA CHIARA+non-probe Ql (Nph) Not detected Not Detected [facility] SARS-CoV-2 (COVID-19) RNA CHIARA+non-probe Ql (Nph) Not detected Not Detected [facility] TSH DL <= 0.005 mIU/L Qnon 0 01-01-2024 Interpretation and review of laboratory results Normal [facility] TSH Qn 3.71 m[IU]/L [facility] Troponinon 01-01-2024 Delta Difference Troponin T 0 ng/L < = -/+ 7 change [facility] Troponin T Delta Change No biomarker evidence of cardiac injury. [facility] Troponin T 8 ng/L NINF - 14 ng/L [facility] Delta Difference Troponin T 0 ng/L < = -/+ 7 change [facility] Inter Troponin T Delta Change No biomarker evidence of cardiac injury. [facility] Troponin T 8 ng/L NINF - 14 ng/L [facility] Troponin x 2 (Now and Repeat in 3 hours)on 01-01-2024 [facility] Difference Troponin T 0 ng/L < = -/+ 7 change [facility] Troponin T Delta Change No biomarker evidence of cardiac injury. [facility] Troponin T 8 ng/L NINF - 14 ng/L [facility] Valproate [Mass/Vol]on 12-31 Interpretation and review of laboratory results Abnormal [facility] Valproic Acid Levelon 2023 Valproate [Mass/Vol] 35 ug/mL Low [facility] Vitamin B12on 01-01-2024 Cobalamin (Vitamin B12) [Mass/Vol] 1219 pg/mL 232 - 1245 pg/mL [facility] Basic metabolic 2000 panelon 12-31-2023 Anion gap [Moles/Vol] 15 mmol/L 10 - 2 0 mmol/L [facility] Calcium [Mass/Vol] 9.3 mg/dL 8.4 - 10. 2 mg/dL [facility] Chloride [Moles/Vol] 106 mmol/L 98 - 10 8 mmol/L [facility] Creatinine [Mass/Vol] 1.38 mg/dL High 0.40 - 1.10 mg/dL [facility] GFR/1.73 sq M.predicted CKD-EPI (S/P/Bld) [Vol rate/Area] 47 Low - PINF [facility] Comment on above: Estimated GFR was ca lculated using the 2020 CKD-EPI creatinine equation. Glucose [Mass/Vol] 98 mg/dL 65 - 99 mg/dL [facility] HCO3 [Moles/Vol] 24 mmol/L 21 - 32 mmol/L [facility] Potassium [Moles/Vol] 4.5 mmol/L 3.5 - 5.1 mmol/L [facility] Sodium [Moles/Vol] 140 mmol/L 135 - 145 mmol/L [facility] Urea nitrogen [Mass/Vol] 25 mg/dL 8 - 25 mg/dL [facility] Urea nitrogen/Creatinine [Mass ratio] 18.1 mg/mg 10.0 - 20.0 [facility] has implemented the eGFR calculation approach that does not have a coefficient for race that conforms to the NKF-ASN Task Force Recommendations. [facility] CBC Auto Differentialon 12-16 Basophils (Bld) [#/Vol] 0.02 10*3/uL [facility] Basophils/100 WBC (Bld) 0.4 % [facility] Eosinophils (Bld) [#/Vol] 0.09 10*3/uL [facility] Eosinophils/100 WBC (Bld) 1.7 % [facility] Erythrocyte distribution width (RBC) [Entitic vol] 13.0 % 11.6 - 14.8 % [facility] Hematocrit (Bld) [Volume fraction] 38.9 % 36.0 - 46.0 % [facility] Hemoglobin (Bld) [Mass/Vol] 13.3 g/dL 12.0 - 16.0 g/dL [facility] Immature granulocytes (Bld) [#/Vol] 0.06 10*3/uL [facility] Immature granulocytes/100 WBC (Bld) 1.10 % [facility] Comment on above: The IG parameter is the percentage of metamyelocytes, myelocytes and promyelocytes. An immature granulocyte count (IG) of 1% or more suggests the possibility of infection, an IG count of 3% is very likely related to an infection. Interpretation and review of laboratory results Abnormal [facility] Lymphocytes (Bld) [#/Vol] 1.59 10*3/uL [facility] Lymphocytes/100 WBC (Bld) 29.9 % [facility] MCH (RBC) [Entitic mass] 31.3 pg 26.0 - 34.0 pg [facility] MCHC (RBC) [Mass/Vol] 34.2 g/dL 31.0 - 37.0 g/dL [facility] MCV (RBC) [Entitic vol] 91.5 fL 80.0 - 100.0 fL [facility] Monocytes (Bld) [#/Vol] 0.49 10*3/uL [facility] Monocytes/100 WBC (Bld) 9.2 % [facility] Neutrophils (Bld) [#/Vol] 3.07 10*3/uL [facility] Neutrophils/100 WBC (Bld) 57.7 % [facility] Nucleated RBC (Bld) [#/Vol] 0.00 10*3/uL [facility] Nucleated RBC/100 WBC (Bld) [Ratio] 0.0 % [facility] Platelet mean volume (Bld) [Entitic vol] 10.5 fL 9.4 - 12.4 fL [facility] Platelets (Bld) [#/Vol] 121 10*3/uL Low [facility] RBC (Bld) [#/Vol] 4.25 10*6/uL [facility] WBC (Bld) [#/Vol] 5.32 10*3/uL [facility] CT Abdomen and Pelvis W cont rast Deepak 12-31-2023 Radiology Study observation (narrative) [facility] CT DISSECTION WITH PELVISon 12-31-2023 CT DISSECTION WITH PELVIS EXAMINATION: CT DISSECTION WITH PELVIS HISTORY: ORDERING SYSTEM PROVIDED HISTORY: chest pain into back, TECHNOLOGIST PROVIDED HISTORY: Illness/Other Reason for exam: Per EMS patient chest pain started an hour ago and it radiates across her back. Patient complains of 10/10 chest pain Encounter Type: Initial Additional signs and symptoms: . ORDERING SYSTEM PROVIDED DIAGNOSIS CODES: COMPARISON: 1. December 31, 2023 chest radiograph. 2. August 16, 2021 CT chest without contrast. 3. 2017 CT abdomen pelvis without contrast. TECHNIQUE: Dose reduction techniques were achieved by using automated exposure control and/or adjustment of mA and/or kV according to patient size and/or use of iterative reconstruction technique. Coronal and sagittal MIP (maximum intensity projection) images were performed. CT dissection with pelvis. The chest was scanned with out contrast followed by the chest, abdomen and pelvis with contrast. Coronal and sagittal reformats were done. CONTRAST: IOPAMIDOL 370 MG IODINE/ML (76 %) INTRAVENOUS SOLUTION - 75 mL, FINDINGS: The heart is of normal size. No coronary artery calcifications are evident. There is no significant pericardial fluid. The thoracic aorta is of normal caliber. There is no intimal flap to indicate new aortic dissection. There is no acute intramural or mediastinal hematoma. There is good opacification of the pulmonary arteries which are of normal caliber. No filling defect is seen to indicate an embolus. No hilar or mediastinal masses are seen. There are no abnormally enlarged intrathoracic lymph nodes. There is a LINX device presence. There is no hiatal hernia. The wall of the distal esophagus may be mildly thickened although it is nondistended which does limit evaluation. Mild subpleural scarring is seen in both lungs. There is minimal atelectasis in the lingula. In the lateral segment of the right middle lobe is a noncalcified subpleural nodule measuring 6 mm. These findings are unchanged from the previous study. There is no pleural effusion or pneumothorax. No liver lesions are seen. The gallbladder is contracted. There is no biliary dilatation. The spleen is of normal size. It is inhomogeneous on the enhanced portion of the study which is likely due to timing of the contrast bolus. No pancreatic or adrenal abnormalities are seen. The kidneys are unremarkable. There is no hydronephrosis. No urinary tract calculi are seen. The urinary bladder is normal. The uterus is within normal limits. No suspicious adnexal masses are seen. There is no abdominal or pelvic lymphadenopathy. There is no abdominal aortic aneurysm or dissection. There is no retroperitoneum hematoma. Major aortic branch vessels are patent and there is no significant stenosis. There is no evidence of ileus or obstruction. No small or large bowel wall thickening or perienteric inflammation is evident. There are several appendicoliths. No periappendiceal edema or fluid is seen. There is no paraspinal gas, fluid or fluid collection. No acute bone findings are seen. IMPRESSION: 1. No aortic dissection or aneurysm. 2. Stable mild pulmonary scarring, minimal lingular atelectasis and right middle lobe nodule. 3. There is a LINX device present. There is questionable wall thickening the distal esophagus which could indicate reflux esophagitis. 4. There are appendicoliths present, but there is no periappendiceal inflammation to indicate appendicitis. [facility] Workstation ID: [id number] Dictated by: SUMMER MAURO on [facility] Jan 01, 2024 6:05:41 AM EDT Transcribed by: YOANDY GLORIA on [facility] Jan 01, 2024 6:11:01 AM EDT Finalized by: SUMMER MAURO on [facility] Jan 01, 2024 6:12:43 AM EDT [facility] Comment on above: Order Comment: Injur y/Trauma or Illness?:Illness/OtherHow long have you had these symptoms (acute/chronic)?:AcuteReason for exam?:Per EMS patient chest pain started an hour ago and it radiates across her back. Patient complains of 10/10 chest painType of Exam?:InitialAdditional signs and symptoms?:. EKGon 12-31-2023 [facility] EKG 12-leadon 12-31-2023 Atrial Rate 72 BPM [facility] P Bennett 46 degrees [facility] P-R Interval 156 ms [facility] Q-T Interval 390 ms [facility] QRS Duration 82 ms [facility] QTC Calculation (Bezet) 427 ms [facility] R Bennett 43 degrees [facility] T Bennett 74 degrees [facility] Ventricular Rate 72 BPM [facility] th Normal sinus rhythm Cannot rule out Anterior infarct , age undetermined Abnormal ECG ECG Cart Interpretation see physician note for interpretation. Confirmed by Susan Madera ([id number]) on 12/31/2023 9:13:45 PM [facility] Hepatic function 2000 panelO rdered By: Lori Whitten on 12-31-2023 Albumin [Mass/Vol] 3.8 g/dL 3.2 - 5.2 g/dL [facility] ALP [Catalytic activity/Vol] 84 U/L 40 - 150 U/L [facility] ALT [Catalytic activity/Vol] 13 U/L 0-35 U/L [facility] AST [Catalytic activity/Vol] 24 U/L 0-35 U/L [facility] Bilirubin [Mass/Vol] mg/dL 0.0 - 1 .3 mg/dL [facility] Bilirubin.conjugated [Mass/Vol] mg/dL 0.0 - 0.4 mg/dL [facility] Interpretation and review of laboratory results Normal [facility] Protein [Mass/Vol] 6.3 g/dL 6.0 - 8.0 g/dL [facility] Lipaseon 12-31-2023 Lipase [Catalytic activity/Vol] 66 U/L High 15 - 65 U/L [facility] Lipase [Catalytic activity/V ol]on 12-31-2023 Interpretation and review of laboratory results Abnormal [facility] Lipid 1996 panelon Cholesterol [Mass/Vol] 208 mg/dL High 100 - 199 mg/dL [facility] Cholesterol in HDL [Mass/Vol] 39 mg/dL Low 40 - 59 mg/dL [facility] Cholesterol in LDL [Mass/Vol] 96 mg/dL 10 - 130 mg/dL [facility] Comment on above: National Cholesterol Education Program Guidelines: LDL Cholesterol Optimal: <100 mg/dL Near Optimal/above Optimal: 100-129 mg/dL Borderline High: 130-159 mg/dL High: 160-189 mg/dL Very High: greater than or equal to 190 mg/dL Cholesterol non HDL [Mass/Vol] 169 mg/dL [facility] Comment on above: National Cholesterol Education Program Guidelines: NON HDL Cholesterol Desirable: <130 mg/dL Borderline High: 130-159 mg/dL High: 160-189 mg/dL Very High: > or = 190 mg/dL Cholesterol.total/Cho lesterol in HDL [Mass ratio] 5.3 {ratio} ratio [facility] Comment on above: Female Cholesterol/H DL Ratio: Average risk: 4.4 1/2 average risk: 3.3 2 x average risk: 7.1 Triglyceride [Mass/Vol] 363 mg/dL High 30 - 150 mg/dL [facility] Magnesiumon 12-31-2023 Magnesium [Mass/Vol] 1.9 mg/dL 1.6 - 2 .4 mg/dL [facility] Magnesium [Mass/Vol]on 12-30 Interpretation and review of laboratory results Normal [facility] NT Pro BNPon 12-31-2023 Natriuretic peptide.B prohormone N-Terminal [Mass/Vol] 352 pg/mL High 0 - 300 pg/mL [facility] Natriuretic peptide.B prohor mamie N-Terminal [Mass/Vol]on 12-31-2023 Pride Study Cut-offs Rule In: < /= 50 Years >450 pg/mL 51 Years - 75 Years >900 pg/mL 76 Years - 99 Years >1800 pg/mL Rule Out: All patients <300 pg/mL [facility] No Panel Informationon 12-30 Interpretation and review of laboratory results Abnormal [facility] Extra Tube Hold for add-ons. [facility] Comment on above: Auto resulted. [facility] Interpretation and review of laboratory results Abnormal [facility] Phosphoruson 12-31-2023 Phosphate [Mass/Vol] 2.1 mg/dL Low 2.7 - 4 .5 mg/dL [facility] Troponin x 2 (Now and Repeat in 3 hours)on 12-31-2023 Troponin T 8 ng/L NINF - 14 ng/L [facility] Troponin T Interpretation Normal [facility] XR CHEST PA/APon 12-31-2023 XR CHEST PA/AP EXAMINATION: XR CHEST PA/AP 12/31/2023 9:04 pm HISTORY: ORDERING SYSTEM PROVIDED HISTORY: chest pain, TECHNOLOGIST PROVIDED HISTORY: Illness/Other Reason for exam: chest pain that started 1 hr ago Cancer History: n Surgery, RadiationHistory: yes Encounter Type: Initial Additional signs and symptoms: . ORDERING SYSTEM PROVIDED DIAGNOSIS CODES: COMPARISON: Two-view chest from 12/15/2017. FINDINGS: Trachea, mediastinum, heart size, diaphragm and bony elements are intact. The lungs are clear and well aerated. No effusion or nodule or pneumothorax is noted. LINX implant is noted. IMPRESSION: Nonacute portable chest. Workstation ID: [id number] Dictated by: MARZENA PERSAUD on WedDec 31, 2023 9:10:25 PM EDT Transcribed by: MARZENA PERSAUD on WedDec 31, 2023 9:10:25 PM EDT Finalized by: MARZENA PERSAUD on WedDec 31, 2023 9:10:25 PM EDT [facility] Comment on above: Order Comment: Injur y/Trauma or Illness?:Illness/OtherHow long have you had these symptoms (acute/chronic)?:AcuteReason for exam?:chest pain that started 1 hr agoHistory of cancer?:nSurgeries, chemotherapy, or radiation?:yesType of Exam?:InitialAdditional signs and symptoms?:. XR Chest PA and Abdomen APon 12-31-2023 Nonacute portable chest. Workstation ID: [id number] [employer] EXAMINATION: XR CHEST PA/AP 12/31/2023 9:04 pm HISTORY: ORDERING SYSTEM PROVIDED HISTORY: chest pain, TECHNOLOGIST PROVIDED HISTORY: Illness/Other Reason for exam: chest pain that started 1 hr ago Cancer History: n Surgery, RadiationHistory: yes Encounter Type: Initial Additional signs and symptoms: . ORDERING SYSTEM PROVIDED DIAGNOSIS CODES: COMPARISON: Two-view chest from 12/15/2017. FINDINGS: Trachea, mediastinum, heart size, diaphragm and bony elements are intact. The lungs are clear and well aerated. No effusion or nodule or pneumothorax is noted. LINX implant is noted. [employer]IS Marzena Persaud, DO - 12/31/2023 EXAMINATION: XR CHEST PA/AP 12/31/2023 9:04 pm HISTORY: ORDERING SYSTEM PROVIDED HISTORY: chest pain, TECHNOLOGIST PROVIDED HISTORY: Illness/Other Reason for exam: chest pain that started 1 hr ago Cancer History: n Surgery, RadiationHistory: yes Encounter Type: Initial Additional signs and symptoms: . ORDERING SYSTEM PROVIDED DIAGNOSIS CODES: COMPARISON: Two-view chest from 12/15/2017. FINDINGS: Trachea, mediastinum, heart size, diaphragm and bony elements are intact. The lungs are clear and well aerated. No effusion or nodule or pneumothorax is noted. LINX implant is noted. IMPRESSION: Nonacute portable chest. Workstation ID: [id number] [facility] Radiology Study observation (narrative) [facility] [facility] XR Chest PA and Abdomen APOr dered By: Marzena Persaud on 12-31-2023 [facility] Work Phone: CT CERVICAL SPINE WO IV CONT RASTon 11-17-2023 CT CERVICAL SPINE WO IV CONTRAST Interpreted By: Otis Prather, STUDY: CT CERVICAL SPINE WO IV CONTRAST; 11/17/2023 5:38 pm INDICATION: Signs/Symptoms:fall with pain. COMPARISON: CT cervical spine 08/25/2023 ACCESSION NUMBER(S): [id number] ORDERING CLINICIAN: LARRY EUGENE TECHNIQUE: Axial CT images of the cervical spine are obtained. Axial, coronal and sagittal reconstructions are provided for review. FINDINGS: Fractures: There is no evidence for an acute fracture of the cervical spine. Vertebral Alignment: No posttraumatic malalignment. There is overall straightening of the normal cervical lordosis, presumed secondary to patient positioning or spasm. Craniocervical Junction: The odontoid process and craniocervical junction are intact. Vertebrae/Disc Spaces: Multilevel disc space narrowing. Multilevel facet arthropathy Multilevel uncovertebral hypertrophy.Multilevel osteophyte formation. Prevertebral/Paraspinal Soft Tissues: The prevertebral and paraspinal soft tissues are unremarkable. IMPRESSION: No evidence for an acute fracture or subluxation of the cervical spine. MACRO: None Signed by: Otis Prather 11/17/2023 5:56 PM Dictation workstation: [id number] [facility] CT Cervical spine WO contras ton 11-17-2023 No evidence for an acute fracture or subluxation of the cervical spine. MACRO: None Signed by: Otis Prather 11/17/2023 5:56 PM Dictation workstation: [id number] MMODAL Interpreted By: Otis Love, STUDY: CT CERVICAL SPINE WO IV CONTRAST; 11/17/2023 5:38 pm INDICATION: Signs/Symptoms:fall with pain. COMPARISON: CT cervical spine 08/25/2023 ACCESSION NUMBER(S): [id number] ORDERING CLINICIAN: LARRY EUGENE TECHNIQUE: Axial CT images of the cervical spine are obtained. Axial, coronal and sagittal reconstructions are provided for review. FINDINGS: Fractures: There is no evidence for an acute fracture of the cervical spine. Vertebral Alignment: No posttraumatic malalignment. There is overall straightening of the normal cervical lordosis, presumed secondary to patient positioning or spasm. Craniocervical Junction: The odontoid process and craniocervical junction are intact. Vertebrae/Disc Spaces: Multilevel disc space narrowing. Multilevel facet arthropathy Multilevel uncovertebral hypertrophy.Multilevel osteophyte formation. Prevertebral/Paraspinal Soft Tissues: The prevertebral and paraspinal soft tissues are unremarkable. MMODAL Otis Prather MD - 11/17/2023 Interpreted By: Otis Prather, STUDY: CT CERVICAL SPINE WO IV CONTRAST; 11/17/2023 5:38 pm INDICATION: Signs/Symptoms:fall with pain. COMPARISON: CT cervical spine 08/25/2023 ACCESSION NUMBER(S): [id number] ORDERING CLINICIAN: LARRY EUGENE TECHNIQUE: Axial CT images of the cervical spine are obtained. Axial, coronal and sagittal reconstructions are provided for review. FINDINGS: Fractures: There is no evidence for an acute fracture of the cervical spine. Vertebral Alignment: No posttraumatic malalignment. There is overall straightening of the normal cervical lordosis, presumed secondary to patient positioning or spasm. Craniocervical Junction: The odontoid process and craniocervical junction are intact. Vertebrae/Disc Spaces: Multilevel disc space narrowing. Multilevel facet arthropathy Multilevel uncovertebral hypertrophy.Multilevel osteophyte formation. Prevertebral/Paraspinal Soft Tissues: The prevertebral and paraspinal soft tissues are unremarkable. IMPRESSION: No evidence for an acute fracture or subluxation of the cervical spine. MACRO: None Signed by: Otis Prather 11/17/2023 5:56 PM Dictation workstation: [id number] [facility] [place] Work Phone: CT Cervical spine WO contras tOrdered By: Otis Prather on 11-17-2023 [facility] [place] Work Phone: CT LUMBAR SPINE WO IV CONTRA STon 11-17-2023 CT LUMBAR SPINE WO IV CONTRAST STUDY: CT Thoracic Spine and Lumbar Spine without IV Contrast; 11/17/2023 5:40 PM INDICATION: Trauma/fall with pain. COMPARISON: None Available. ACCESSION NUMBER(S): [id number], [id number] ORDERING CLINICIAN: LARRY EUGENE TECHNIQUE: CT of the thoracic spine and lumbar spine was performed without intravenous or intrathecal contrast. Sagittal and coronal reconstructions were generated. Automated mA/kV exposure control was utilized and patient examination was performed in strict accordance with principles of ALARA. FINDINGS: Thoracic spine: The alignment is anatomic. There is no fracture or traumatic subluxation. The vertebral body heights are well maintained. Disc spaces are preserved. No significant central canal stenosis is demonstrated. The neural foramina are patent throughout. The paravertebral soft tissues are within normal limits. There are infiltrates posteriorly in both lungs most likely related to dependent atelectasis or fibrosis. Lumbar spine: The alignment is anatomic. There is no fracture or traumatic subluxation. The vertebral body heights are well maintained. Disc spaces are preserved. No significant central canal stenosis is demonstrated. The neural foramina are patent throughout. The paravertebral soft tissues are within normal limits. There is a Linx present. IMPRESSION: No evidence of acute fracture or subluxation. No significant degenerative neural canal narrowing. Interstitial changes posteriorly in both lung bases most likely representing atelectasis or fibrosis. Signed by Tenisha Richards MD [facility] CT THORACIC SPINE WO IV CONT Prakash 11-17-2023 CT THORACIC SPINE WO IV CONTRAST STUDY: CT Thoracic Spine and Lumbar Spine without IV Contrast; 11/17/2023 5:40 PM INDICATION: Trauma/fall with pain. COMPARISON: None Available. ACCESSION NUMBER(S): [id number], [id number] ORDERING CLINICIAN: LARRY EUGENE TECHNIQUE: CT of the thoracic spine and lumbar spine was performed without intravenous or intrathecal contrast. Sagittal and coronal reconstructions were generated. Automated mA/kV exposure control was utilized and patient examination was performed in strict accordance with principles of ALARA. FINDINGS: Thoracic spine: The alignment is anatomic. There is no fracture or traumatic subluxation. The vertebral body heights are well maintained. Disc spaces are preserved. No significant central canal stenosis is demonstrated. The neural foramina are patent throughout. The paravertebral soft tissues are within normal limits. There are infiltrates posteriorly in both lungs most likely related to dependent atelectasis or fibrosis. Lumbar spine: The alignment is anatomic. There is no fracture or traumatic subluxation. The vertebral body heights are well maintained. Disc spaces are preserved. No significant central canal stenosis is demonstrated. The neural foramina are patent throughout. The paravertebral soft tissues are within normal limits. There is a Linx present. IMPRESSION: No evidence of acute fracture or subluxation. No significant degenerative neural canal narrowing. Interstitial changes posteriorly in both lung bases most likely representing atelectasis or fibrosis. Signed by Tenisha Richards MD [facility] No Panel Informationon 11-17 No evidence of acute fracture or subluxation. No significant degenerative neural canal narrowing. Interstitial changes posteriorly in both lung bases most likely representing atelectasis or fibrosis. Signed by Tenisha Richards MD TELERADIOLOGY STUDY: CT Thoracic Spine and Lumbar Spine without IV Contrast; 11/17/2023 5:40 PM INDICATION: Trauma/fall with pain. COMPARISON: None Available. ACCESSION NUMBER(S): [id number], [id number] ORDERING CLINICIAN: LARRY EUGENE TECHNIQUE: CT of the thoracic spine and lumbar spine was performed without intravenous or intrathecal contrast. Sagittal and coronal reconstructions were generated. Automated mA/kV exposure control was utilized and patient examination was performed in strict accordance with principles of ALARA. FINDINGS: Thoracic spine: The alignment is anatomic. There is no fracture or traumatic subluxation. The vertebral body heights are well maintained. Disc spaces are preserved. No significant central canal stenosis is demonstrated. The neural foramina are patent throughout. The paravertebral soft tissues are within normal limits. There are infiltrates posteriorly in both lungs most likely related to dependent atelectasis or fibrosis. Lumbar spine: The alignment is anatomic. There is no fracture or traumatic subluxation. The vertebral body heights are well maintained. Disc spaces are preserved. No significant central canal stenosis is demonstrated. The neural foramina are patent throughout. The paravertebral soft tissues are within normal limits. There is a Linx present. TELERADIOLOGY Tenisha Richards MD - 11/17/2023 STUDY: CT Thoracic Spine and Lumbar Spine without IV Contrast; 11/17/2023 5:40 PM INDICATION: Trauma/fall with pain. COMPARISON: None Available. ACCESSION NUMBER(S): [id number], [id number] ORDERING CLINICIAN: LARRY EUGENE TECHNIQUE: CT of the thoracic spine and lumbar spine was performed without intravenous or intrathecal contrast. Sagittal and coronal reconstructions were generated. Automated mA/kV exposure control was utilized and patient examination was performed in strict accordance with principles of ALARA. FINDINGS: Thoracic spine: The alignment is anatomic. There is no fracture or traumatic subluxation. The vertebral body heights are well maintained. Disc spaces are preserved. No significant central canal stenosis is demonstrated. The neural foramina are patent throughout. The paravertebral soft tissues are within normal limits. There are infiltrates posteriorly in both lungs most likely related to dependent atelectasis or fibrosis. Lumbar spine: The alignment is anatomic. There is no fracture or traumatic subluxation. The vertebral body heights are well maintained. Disc spaces are preserved. No significant central canal stenosis is demonstrated. The neural foramina are patent throughout. The paravertebral soft tissues are within normal limits. There is a Linx present. IMPRESSION: No evidence of acute fracture or subluxation. No significant degenerative neural canal narrowing. Interstitial changes posteriorly in both lung bases most likely representing atelectasis or fibrosis. Signed by Tenisha Richards MD [facility] [place] Work Phone: Radiology Study observation (narrative) [facility] [place] Work Phone: No Panel InformationOrdered By: Tenisha Richards on 11-17-2023 [facility] [place] Work Phone: CARDIOLOGY INTERPRETATION OF NUCLEAR STRESSon 10-05-2023 CARDIOLOGY INTERPRETATION [place] [address] [phone], Nuclear Pharmacologic Stress Test Patient Name: REEMA SHAH Ordering Provider: [id number] HAYWOOD Study Date: 10/05/2023 Reading Physician: Funmilayo Haywood MD MRN/PID: [id number] Supervising Physician: Funmilayo Haywood MD Fellow: Date of /Age: 11 1975 Fellow: years Gender: F Nurse: NA Admit Date: 10/05/2023 [employer] Panels: Otis Becerra CLIENT RENEWAL SPECIALIST Admission Status: Outpatient Shuttle Driver: FLYNN Height: 139.70 cm Technologist: Weight: 72.58 kg Additional Staff: BSA: 1.59 m2 BMI: 37.19 kg/m2 Patient Location: [facility] Stress Lab Study Type: CARDIOLOGY INTERPRETATION OF NUCLEAR STRESS Diagnosis/ICD: Encounter for other preprocedural examination-Z01.818 Indication: Pre-Op Evaluation Falls Risk: High: Patient has a high risk for sustaining a fall; a falls prevention plan has been implemented. Study Details: Correct procedure and correct patient verified verbally and with ID Band checked. Patient History: Hypertension, hyperlipidemia, chest pain, congestive heart failure and stage III chronic kidney disease. Allergies: See patient chart. Smoker: Former. Diabetes: No. BMI: Obese >30. Medications: Atorvastatin, amlodipine, doxazosin, lisinopril, metoprolol and sertralne. The patient did not take medications as prescribed. Patient Performance: Patient received a total of 0.4 mg of Regadenoson at 8:26:35 AM. The patient did not exercise during infusion. The peak heart rate achieved was 116 bpm, which was 68 % of the age predicted target heart rate of 170 bpm. The resting blood pressure was 160/83 mmHg with a heart rate of 72 bpm. The patient developed no symptoms during the stress exam. The blood pressure response was normal. The test was terminated due to: completed lab protocol. Baseline ECG: Resting ECG showed normal sinus rhythm with normal tracing. Stress ECG: Stress ECG showed normal sinus rhythm, with no abnormal findings. Stress Stage Data: + +---+- -----+-------+ HR Sys BP Pereira BP + +---+- -----+-------+ Baseline Resting 72 160 83 + +---+- -----+-------+ Stage I 95 + +---+- -----+-------+ Stage II 116 153 100 + +---+- -----+-------+ Recovery ECG: Recovery ECG showed normal sinus rhythm, with no abnormal findings. The heart rate recovery was normal. + +---+----- -+-------+ HR Sys BP Pereira BP + +---+----- -+-------+ Recovery I 125 + +---+----- -+-------+ Recovery II 118 168 109 + +---+----- -+-------+ Recovery III 108 + +---+----- -+-------+ Recovery IV 109 174 105 + +---+----- -+-------+ Summary: 1. Baseline EKG showing normal sinus rhythm with no resting ST-T segment changes. 2. With regadenoson infusion, there are no ST-T segment changes suggestive of ischemia. No sustained ventricular arrhythmias are seen. 3. Regadenoson stress EKG is negative for ischemia. 4. Adequate level of stress achieved. 5. Nuclear image results are reported separately. [id number] Everett Haywood MD Electronically signed on 10/05/2023 at 3:52:51 PM Final [facility] NM Heart Perfusion W stress and W radionuclide Deepak 10-05-2023 1. Negative myocardi al perfusion study without evidence of inducible myocardial ischemia or prior infarction. 2. The left ventricle is normal in size. 3. Normal LV wall motion with a post-stress LV EF estimated at 50%. I personally reviewed the images/study and I agree with the findings as stated. This study was interpreted at [facility], [place], [place]. MACRO: None Signed by: Lesly Herrera 10/05/2023 11:36 AM Dictation workstation: [id number] MMODAL Interpreted By: Lesly Herrera and Osman Sena STUDY: NUCLEAR STRESS TEST; 10/05/2023 10:23 am INDICATION: Signs/Symptoms: 48-year-old female, preop cardiac assessment. COMPARISON: None. ACCESSION NUMBER(S): [id number] ORDERING CLINICIAN: EVERETT HAYWOOD TECHNIQUE: DIVISION OF NUCLEAR MEDICINE PHARMACOLOGIC STRESS MYOCARDIAL PERFUSION SCAN, ONE DAY PROTOCOL The patient received an intravenous injection of 12.0 mCi of Tc-99m Myoview and resting emission tomographic (SPECT) images of the myocardium were acquired. The patient then received an intravenous infusion of 0.4 mg regadenoson (Lexiscan) followed by an additional injection of 36.0 mCi of Tc-99m Myoview. Stress phase SPECT images of the myocardium were then acquired. These included ECG-gated post-stress and rest images to assess and quantify ventricular function. Low dose CT was acquired for attenuation correction. FINDINGS: Both stress and rest studies demonstrate grossly normal perfusion throughout the left ventricle. The left ventricle is normal in size. EKG-gated images demonstrate normal LV wall motion with a post-stress LV EF estimated at 50% Attenuation correction CT images demonstrate grossly no abnormality. MMODAL Lesly Herrera MD - 10/05/2023 Interpreted By: Lesly Herrera and Osman Sena STUDY: NUCLEAR STRESS TEST; 10/05/2023 10:23 am INDICATION: Signs/Symptoms: 48-year-old female, preop cardiac assessment. COMPARISON: None. ACCESSION NUMBER(S): [id number] ORDERING CLINICIAN: EVERETT HAYWOOD TECHNIQUE: DIVISION OF NUCLEAR MEDICINE PHARMACOLOGIC STRESS MYOCARDIAL PERFUSION SCAN, ONE DAY PROTOCOL The patient received an intravenous injection of 12.0 mCi of Tc-99m Myoview and resting emission tomographic (SPECT) images of the myocardium were acquired. The patient then received an intravenous infusion of 0.4 mg regadenoson (Lexiscan) followed by an additional injection of 36.0 mCi of Tc-99m Myoview. Stress phase SPECT images of the myocardium were then acquired. These included ECG-gated post-stress and rest images to assess and quantify ventricular function. Low dose CT was acquired for attenuation correction. FINDINGS: Both stress and rest studies demonstrate grossly normal perfusion throughout the left ventricle. The left ventricle is normal in size. EKG-gated images demonstrate normal LV wall motion with a post-stress LV EF estimated at 50% Attenuation correction CT images demonstrate grossly no abnormality. IMPRESSION: 1. Negative myocardial perfusion study without evidence of inducible myocardial ischemia or prior infarction. 2. The left ventricle is normal in size. 3. Normal LV wall motion with a post-stress LV EF estimated at 50%. I personally reviewed the images/study and I agree with the findings as stated. This study was interpreted at [facility], [place], [place]. MACRO: None Signed by: Lesly Herrera 10/05/2023 11:36 AM Dictation workstation: [id number] [facility] [place] Work Phone: Radiology Study observation (narrative) [facility] [place] Work Phone: NM Heart Perfusion W stress and W radionuclide IVOrdered By: Lesly Herrera on 10-05-2023 [facility] [place] Work Phone: NUCLEAR STRESS TESTon 2022 NUCLEAR STRESS TEST Interpreted By: Lesly Herrera and Osman Sena STUDY: NUCLEAR STRESS TEST; 10/05/2023 10:23 am INDICATION: Signs/Symptoms: 48-year-old female, preop cardiac assessment. COMPARISON: None. ACCESSION NUMBER(S): [id number] ORDERING CLINICIAN: EVERETT HAYWOOD TECHNIQUE: DIVISION OF NUCLEAR MEDICINE PHARMACOLOGIC STRESS MYOCARDIAL PERFUSION SCAN, ONE DAY PROTOCOL The patient received an intravenous injection of 12.0 mCi of Tc-99m Myoview and resting emission tomographic (SPECT) images of the myocardium were acquired. The patient then received an intravenous infusion of 0.4 mg regadenoson (Lexiscan) followed by an additional injection of 36.0 mCi of Tc-99m Myoview. Stress phase SPECT images of the myocardium were then acquired. These included ECG-gated post-stress and rest images to assess and quantify ventricular function. Low dose CT was acquired for attenuation correction. FINDINGS: Both stress and rest studies demonstrate grossly normal perfusion throughout the left ventricle. The left ventricle is normal in size. EKG-gated images demonstrate normal LV wall motion with a post-stress LV EF estimated at 50% Attenuation correction CT images demonstrate grossly no abnormality. IMPRESSION: 1. Negative myocardial perfusion study without evidence of inducible myocardial ischemia or prior infarction. 2. The left ventricle is normal in size. 3. Normal LV wall motion with a post-stress LV EF estimated at 50%. I personally reviewed the images/study and I agree with the findings as stated. This study was interpreted at [facility], [place], [place]. MACRO: None Signed by: Lesly Herrera 10/05/2023 11:36 AM Dictation workstation: [id number] Normal [facility] No Panel Informationon 10-05 [place] [address] [phone], Nuclear Pharmacologic Stress Test Patient Name: REEMA SHAH Ordering Provider: [id number] HAYWOOD Study Date: 10/05/2023 Reading Physician: [id number] Haywood MD MRN/PID: [id number] Supervising Physician: [id number] Haywood MD Fellow: Date of /Age: 11 1975 Fellow: years Gender: F Nurse: FLYNN Admit Date: 10/05/2023 [employer] Panels: Otis Becerra CLIENT RENEWAL SPECIALIST Admission Status: Outpatient Shuttle Driver: FLYNN Height: 139.70 cm Technologist: Weight: 72.58 kg Additional Staff: BSA: 1.59 m2 BMI: 37.19 kg/m2 Patient Location: [facility] Stress Lab Study Type: CARDIOLOGY INTERPRETATION OF NUCLEAR STRESS Diagnosis/ICD: Encounter for other preprocedural examination-Z01.818 Indication: Pre-Op Evaluation Falls Risk: High: Patient has a high risk for sustaining a fall; a falls prevention plan has been implemented. Study Details: Correct procedure and correct patient verified verbally and with ID Band checked. Patient History: Hypertension, hyperlipidemia, chest pain, congestive heart failure and stage III chronic kidney disease. Allergies: See patient chart. Smoker: Former. Diabetes: No. BMI: Obese >30. Medications: Atorvastatin, amlodipine, doxazosin, lisinopril, metoprolol and sertralne. The patient did not take medications as prescribed. Patient Performance: Patient received a total of 0.4 mg of Regadenoson at 8:26:35 AM. The patient did not exercise during infusion. The peak heart rate achieved was 116 bpm, which was 68 % of the age predicted target heart rate of 170 bpm. The resting blood pressure was 160/83 mmHg with a heart rate of 72 bpm. The patient developed no symptoms during the stress exam. The blood pressure response was normal. The test was terminated due to: completed lab protocol. Baseline ECG: Resting ECG showed normal sinus rhythm with normal tracing. Stress ECG: Stress ECG showed normal sinus rhythm, with no abnormal findings. Stress Stage Data: + +---+- -----+-------+ HR Sys BP Pereira BP + +---+- -----+-------+ Baseline Resting 72 160 83 + +---+- -----+-------+ Stage I 95 + +---+- -----+-------+ Stage II 116 153 100 + +---+- -----+-------+ Recovery ECG: Recovery ECG showed normal sinus rhythm, with no abnormal findings. The heart rate recovery was normal. + +---+----- -+-------+ HR Sys BP Pereira BP + +---+----- -+-------+ Recovery I 125 + +---+----- -+-------+ Recovery II 118 168 109 + +---+----- -+-------+ Recovery III 108 + +---+----- -+-------+ Recovery IV 109 174 105 + +---+----- -+-------+ Summary: 1. Baseline EKG showing normal sinus rhythm with no resting ST-T segment changes. 2. With regadenoson infusion, there are no ST-T segment changes suggestive of ischemia. No sustained ventricular arrhythmias are seen. 3. Regadenoson stress EKG is negative for ischemia. 4. Adequate level of stress achieved. 5. Nuclear image results are reported separately. [id number] Everett Haywood MD Electronically signed on 10/05/2023 at 3:52:51 PM Final Everett Graf MD - 10/05/2023 [place] [address] [phone], Nuclear Pharmacologic Stress Test Patient Name: REEMA SHAH Ordering Provider: [id number] HAYWOOD Study Date: 10/05/2023 Reading Physician: Funmilayo Haywood MD MRN/PID: [id number] Supervising Physician: Funmilayo Haywood MD Fellow: Date of /Age: 11 1975 Fellow: years Gender: F Nurse: NA Admit Date: 10/05/2023 [employer] Panels: Otis Becerra RRT Admission Status: Outpatient Shuttle Driver: FLYNN Height: 139.70 cm Technologist: Weight: 72.58 kg Additional Staff: BSA: 1.59 m2 BMI: 37.19 kg/m2 Patient Location: [facility] Stress Lab Study Type: CARDIOLOGY INTERPRETATION OF NUCLEAR STRESS Diagnosis/ICD: Encounter for other preprocedural examination-Z01.818 Indication: Pre-Op Evaluation Falls Risk: High: Patient has a high risk for sustaining a fall; a falls prevention plan has been implemented. Study Details: Correct procedure and correct patient verified verbally and with ID Band checked. Patient History: Hypertension, hyperlipidemia, chest pain, congestive heart failure and stage III chronic kidney disease. Allergies: See patient chart. Smoker: Former. Diabetes: No. BMI: Obese >30. Medications: Atorvastatin, amlodipine, doxazosin, lisinopril, metoprolol and sertralne. The patient did not take medications as prescribed. Patient Performance: Patient received a total of 0.4 mg of Regadenoson at 8:26:35 AM. The patient did not exercise during infusion. The peak heart rate achieved was 116 bpm, which was 68 % of the age predicted target heart rate of 170 bpm. The resting blood pressure was 160/83 mmHg with a heart rate of 72 bpm. The patient developed no symptoms during the stress exam. The blood pressure response was normal. The test was terminated due to: completed lab protocol. Baseline ECG: Resting ECG showed normal sinus rhythm with normal tracing. Stress ECG: Stress ECG showed normal sinus rhythm, with no abnormal findings. Stress Stage Data: + +---+- -----+-------+ HR Sys BP Pereira BP + +---+- -----+-------+ Baseline Resting 72 160 83 + +---+- -----+-------+ Stage I 95 + +---+- -----+-------+ Stage II 116 153 100 + +---+- -----+-------+ Recovery ECG: Recovery ECG showed normal sinus rhythm, with no abnormal findings. The heart rate recovery was normal. + +---+----- -+-------+ HR Sys BP Pereira BP + +---+----- -+-------+ Recovery I 125 + +---+----- -+-------+ Recovery II 118 168 109 + +---+----- -+-------+ Recovery III 108 + +---+----- -+-------+ Recovery IV 109 174 105 + +---+----- -+-------+ Summary: 1. Baseline EKG showing normal sinus rhythm with no resting ST-T segment changes. 2. With regadenoson infusion, there are no ST-T segment changes suggestive of ischemia. No sustained ventricular arrhythmias are seen. 3. Regadenoson stress EKG is negative for ischemia. 4. Adequate level of stress achieved. 5. Nuclear image results are reported separately. [id number] Everett Haywood MD Electronically signed on 10/05/2023 at 3:52:51 PM Final [facility] [place] Work Phone: No Panel InformationOrdered By: Everett Haywood on 10-05-2023 [facility] [place] Work Phone: CT HEAD WO IV CONTRASTon CT HEAD WO IV CONTRAST Interpreted By: Ky Ackerman, STUDY: CT HEAD WO IV CONTRAST 09/16/2023 9:48 am INDICATION: Signs/Symptoms:HEAD INJURY COMPARISON: 08/25/2023 ACCESSION NUMBER(S): [id number] ORDERING CLINICIAN: DIMAS LIN TECHNIQUE: Contiguous axial CT images of the brain were obtained without IV contrast. FINDINGS: The ventricles, cisterns and sulci are prominent, consistent with mild diffuse volume loss. Areas of white matter low attenuation are nonspecific but likely related to chronic microvascular disease. There is intracranial atherosclerosis. Hill-white differentiation is preserved. No acute intracranial hemorrhage or mass effect. No midline shift. Patent basal cisterns. No extraaxial fluid collections. The calvaria is intact. Unchanged findings of hyperostosis frontalis interna. The visualized paranasal sinuses and mastoid air cells are clear. IMPRESSION: No acute intracranial pathology. Signed by: Ky Ackerman 09/16/2023 10:18 AM Dictation workstation: [id number] [facility] CT Head WO contraston 2022 No acute intracrania l pathology. Signed by: Ky Ackerman 09/16/2023 10:18 AM Dictation workstation: [id number] MMODAL Interpreted By: Ky Smart, STUDY: CT HEAD WO IV CONTRAST 09/16/2023 9:48 am INDICATION: Signs/Symptoms:HEAD INJURY COMPARISON: 08/25/2023 ACCESSION NUMBER(S): [id number] ORDERING CLINICIAN: DIMAS LIN TECHNIQUE: Contiguous axial CT images of the brain were obtained without IV contrast. FINDINGS: The ventricles, cisterns and sulci are prominent, consistent with mild diffuse volume loss. Areas of white matter low attenuation are nonspecific but likely related to chronic microvascular disease. There is intracranial atherosclerosis. Hill-white differentiation is preserved. No acute intracranial hemorrhage or mass effect. No midline shift. Patent basal cisterns. No extraaxial fluid collections. The calvaria is intact. Unchanged findings of hyperostosis frontalis interna. The visualized paranasal sinuses and mastoid air cells are clear. MMODAL Ky Ackerman MD - 09/16/2023 Interpreted By: Ky Ackerman, STUDY: CT HEAD WO IV CONTRAST 09/16/2023 9:48 am INDICATION: Signs/Symptoms:HEAD INJURY COMPARISON: 08/25/2023 ACCESSION NUMBER(S): [id number] ORDERING CLINICIAN: DIMAS LIN TECHNIQUE: Contiguous axial CT images of the brain were obtained without IV contrast. FINDINGS: The ventricles, cisterns and sulci are prominent, consistent with mild diffuse volume loss. Areas of white matter low attenuation are nonspecific but likely related to chronic microvascular disease. There is intracranial atherosclerosis. Hill-white differentiation is preserved. No acute intracranial hemorrhage or mass effect. No midline shift. Patent basal cisterns. No extraaxial fluid collections. The calvaria is intact. Unchanged findings of hyperostosis frontalis interna. The visualized paranasal sinuses and mastoid air cells are clear. IMPRESSION: No acute intracranial pathology. Signed by: Ky Ackerman 09/16/2023 10:18 AM Dictation workstation: [id number] [facility] [place] Work Phone: Radiology Study observation (narrative) [facility] [place] Work Phone: CT Head WO contrastOrdered B y: Ky Ackerman on 09-16-2023 [facility] [place] Work Phone: XR ELBOW RIGHT 3+ VIEWSon XR ELBOW RIGHT 3+ VIEWS Interpreted By: Ky Ackerman, STUDY: XR ELBOW RIGHT 3+ VIEWS; 09/16/2023 9:57 am INDICATION: Signs/Symptoms:TRAUMA. COMPARISON: None. ACCESSION NUMBER(S): [id number] ORDERING CLINICIAN: DIMAS LIN FINDINGS: No acute fracture or dislocation of the right elbow. IMPRESSION: No acute osseous findings of the right elbow. Signed by: Ky Ackerman 09/16/2023 10:19 AM Dictation workstation: [id number] [facility] XR Elbow - right 3 Viewson 11-16-2022 No acute osseous findings of the right elbow. Signed by: Ky Ackerman 09/16/2023 10:19 AM Dictation workstation: [id number] [facility]AL Interpreted By: Ky Smart, STUDY: XR ELBOW RIGHT 3+ VIEWS; 09/16/2023 9:57 am INDICATION: Signs/Symptoms:TRAUMA. COMPARISON: None. ACCESSION NUMBER(S): [id number] ORDERING CLINICIAN: DIMAS ILN FINDINGS: No acute fracture or dislocation of the right elbow. [facility] MMODAL Ky Ackerman MD - 09/16/2023 Interpreted By: Ky Ackerman, STUDY: XR ELBOW RIGHT 3+ VIEWS; 09/16/2023 9:57 am INDICATION: Signs/Symptoms:TRAUMA. COMPARISON: None. ACCESSION NUMBER(S): [id number] ORDERING CLINICIAN: DIMAS LIN FINDINGS: No acute fracture or dislocation of the right elbow. IMPRESSION: No acute osseous findings of the right elbow. Signed by: Ky Ackerman 09/16/2023 10:19 AM Dictation workstation: [id number] [facility] [place] Work Phone: [facility] [place] Work Phone: Radiology Study observation (narrative) [facility] [place] Work Phone: XR Chest 2 Viewson 3 1. No acute cardiopulmonary process. 2. Interval evidence of increased gaping between the beads of LINX device, new on today's radiograph compared to immediate prior radiograph dated 08/25/2023. This could be projectional related to differences in patient positioning. However recommend correlation with patient's symptomatology. Signed by: Christin Oconnor 09/02/2023 10:12 PM Dictation workstation: [id number] [facility] MMODAL Interpreted By: Christin Oconnor, STUDY: XR CHEST 2 VIEWS; INDICATION: Signs/Symptoms:Preop. COMPARISON: Chest radiograph dated 08/25/2023 ACCESSION NUMBER(S): [id number] ORDERING CLINICIAN: MATTHEW PÉREZ FINDINGS: The cardiac silhouette size is within normal limits. There is no focal consolidation, edema or pneumothorax. No sizeable pleural effusion. No acute osseous abnormality. A LINX device projects over the expected location of gastroesophageal junction. There is suggestion of increased gaping between the beads, which appears to be more pronounced on today's radiograph compared to prior radiograph dated 08/25/2023. [facility] MMODAL Christin Oconnor MD - 09/02/2023 Interpreted By: Christin Oconnor, STUDY: XR CHEST 2 VIEWS; INDICATION: Signs/Symptoms:Preop. COMPARISON: Chest radiograph dated 08/25/2023 ACCESSION NUMBER(S): [id number] ORDERING CLINICIAN: MATTHEW PÉREZ FINDINGS: The cardiac silhouette size is within normal limits. There is no focal consolidation, edema or pneumothorax. No sizeable pleural effusion. No acute osseous abnormality. A LINX device projects over the expected location of gastroesophageal junction. There is suggestion of increased gaping between the beads, which appears to be more pronounced on today's radiograph compared to prior radiograph dated 08/25/2023. IMPRESSION: 1. No acute cardiopulmonary process. 2. Interval evidence of increased gaping between the beads of LINX device, new on today's radiograph compared to immediate prior radiograph dated 08/25/2023. This could be projectional related to differences in patient positioning. However recommend correlation with patient's symptomatology. Signed by: Christin Oconnor 09/02/2023 10:12 PM Dictation workstation: [id number] [facility] [place] Work Phone: XR Chest 2 ViewsOrdered By: Christin Oconnor on 09-02-2023 [facility] [place] Work Phone: Blood type and Indirect anti body screen panel (Bld)on 09-01-2023 ABO group Nom (Bld) O Normal [facility] Comment on above: Performed By: #### 3 4532-2 #### ANKIT MURPHY ([id number]) [facility] ([facility]) [address] [place] [address] Blood group antibody screen Ql Negative Normal [facility] Comment on above: Performed By: #### 3 4532-2 #### ANKIT MURPHY ([id number]) [facility] ([facility]) [address] [place] [address] D Ag Ql (Bld) Positive Normal [facility] Comment on above: Performed By: #### 3 4532-2 #### ANKIT MURPHY ([id number]) [facility] ([facility]) [address] [place] [address] Comprehensive metabolic 2000 panelon 09-01-2023 Albumin BCP dye [Mass/Vol] 4.4 g/dL Normal 3.4-5.0 [facility] Comment on above: Performed By: #### 2 4323-8 #### ANKIT MURPHY ([id number]) [facility] ([facility]) [address] [place] [address] ALP [Catalytic activity/Vol] 61 U/L Normal 33-110 [facility] Comment on above: Performed By: #### 2 4323-8 #### ANKIT MURPHY ([id number]) [facility] ([facility]) [address] [place] [address] ALT With P-5'-P [Catalytic activity/Vol] 12 U/L Normal 7-45 [facility] Comment on above: Result Comment: Marjan ents treated with Sulfasalazine may generate falsely decreased results for ALT. Performed By: #### 2 4323-8 #### ANKIT MURPHY ([id number]) [facility] ([facility]) [address] [place] [address] Anion gap [Moles/Vol] 13 mmol/L Normal 10-20 [facility] Comment on above: Performed By: #### 2 4322-8 #### ANKIT MURPHY ([id number]) [facility] ([facility]) [address] [place] [address] AST With P-5'-P [Catalytic activity/Vol] 15 U/L Normal 9-39 [facility] Comment on above: Performed By: #### 2 4322-8 #### ANKIT MURPHY ([id number]) [facility] ([facility]) [address] [place] [address] Bilirubin [Mass/Vol] 0.3 mg/dL Normal 0.0-1.2 [facility] Comment on above: Performed By: #### 2 432-8 #### ANKIT MURPHY ([id number]) [facility] ([facility]) [address] [place] [address] Calcium [Mass/Vol] 9.3 mg/dL Normal 8.6-10.3 [facility] Comment on above: Performed By: #### 2 4323-8 #### ANKIT MURPHY ([id number]) [facility] ([facility]) [address] [place] [address] Chloride [Moles/Vol] 102 mmol/L Normal 98-107 [facility] Comment on above: Performed By: #### 2 4323-8 #### ANKIT MURPHY ([id number]) [facility] ([facility]) [address] [place] [address] CO2 [Moles/Vol] 30 mmol/L Normal 21-32 [facility] Comment on above: Performed By: #### 2 4323-8 #### ANKIT MURPHY ([id number]) [facility] ([facility]) [address] [place] [address] Creatinine [Mass/Vol] 1.28 mg/dL High 0.50-1.05 [facility] Comment on above: Performed By: #### 2 4323-8 #### ANKIT MURPHY ([id number]) [facility] ([facility]) [address] [place] [address] GFR/1.73 sq M.predicted MDRD (S/P/Bld) [Vol rate/Area] 51 mL/min/1.73m*2 Low >60 [facility] Comment on above: Result Comment: Calc ulations of estimated GFR are performed using the 2020 CKD-EPI Study Refit equation without the race variable for the IDMS-Traceable creatinine methods. https://jasn.asnjournals.org/content/early/ASN.935123 0134 Performed By: #### 2 4323-8 #### ANKIT MURPHY ([id number]) [facility] ([facility]) [address] [place] [address] Glucose [Mass/Vol] 92 mg/dL Normal 74-99 [facility] Comment on above: Performed By: #### 2 4323-8 #### ANKIT MURPHY ([id number]) [facility] ([facility]) [address] [place] [address] Potassium [Moles/Vol] 4.8 mmol/L Normal 3.5-5.3 [facility] Comment on above: Performed By: #### 2 4323-8 #### ANKIT MURPHY ([id number]) [facility] ([facility]) [facility] [place] [address] Protein [Mass/Vol] 6.7 g/dL Normal 6.4-8.2 [facility] Comment on above: Performed By: #### 2 4323-8 #### ANKIT MURPHY ([id number]) [facility] ([facility]) [address] [place] [address] Sodium [Moles/Vol] 140 mmol/L Normal 136-145 [facility] Comment on above: Performed By: #### 2 4323-8 #### ANKIT MURPHY ([id number]) [facility] ([facility]) [facility] [place] [address] Urea nitrogen [Mass/Vol] 25 mg/dL High 6-23 [facility] Comment on above: Performed By: #### 2 4323-8 #### ANKIT MURPHY ([id number]) [facility] ([facility]) [address] [place] [address] ECG 12 LeadOrdered By: Sg Rushing on 09-01-2023 Atrial Rate 63 BPM [facility] [place] Work Phone: P Bennett 38 degrees [facility] [place] Work Phone: P Offset 188 [facility] Work Phone: P Onset 139 [facility] Work Phone: [place] Interval 166 ms [facility] [place] Work Phone: Q Onset 222 ms [facility] [place] Work Phone: QRS Count 11 beats [facility] [place] Work Phone: QRS Duration 80 ms [facility] [place] Work Phone: QT Interval 444 [facility] Work Phone: QTC Calculation(Bazett) 454 [facility] Work Phone: QTC Fredericia 451 [facility] Work Phone: R Bennett 63 degrees [facility] [place] Work Phone: T Bennett 70 degrees [facility] [place] Work Phone: T Offset 444 [facility] Work Phone: Ventricular Rate 63 BPM [facility] Work Phone: [facility] [place] Work Phone: ECG 12 Leadon 09-01-2023 Normal sinus rhythm Possible Anterior infarct (cited on or before 01-SEP-2023) Abnormal ECG When compared with ECG of 01-SEP-2023 08:11, (unconfirmed) No significant change was found Confirmed by Solo Rushing ([id number]) on 09/01/2023 11:03:57 AM MUSE Solo Rushing MD - 09/01/2023 Normal sinus rhythm Possible Anterior infarct (cited on or before 01-SEP-2023) Abnormal ECG When compared with ECG of 01-SEP-2023 08:11, (unconfirmed) No significant change was found Confirmed by Solo Rushing ([id number]) on 09/01/2023 11:03:57 AM [facility] [place] Work Phone: ECG 12-LEADon 09-01-2023 ECG 12-LEAD Ventricular Rate 63 Atrial Rate 63 P-R Interval 166 QRS Duration 80 Q-T Interval 444 QTC Calculation(Bazett) 454 P Bennett 38 R Bennett 63 T Bennett 70 QRS Count 11 Q Onset 222 P Onset 139 P Offset 188 T Offset 444 QTC Fredericia 451 Diagnosis Normal sinus rhythm Possible Anterior infarct (cited on or before 01-SEP-2023) Abnormal ECG When compared with ECG of 01-SEP-2023 08:11, (unconfirmed) No significant change was found Confirmed by Solo Rushing ([id number]) on 09/01/2023 11:03:57 AM Normal [facility] HbA1c (Bld) [Mass fraction]o n 09-01-2023 Average glucose Estimated from glycated hemoglobin (Bld) [Mass/Vol] 91 mg/dL Normal Not Established [facility] Comment on above: Order Comment: Diagn osis of Diabetes-Adults Non-Diabetic: < or = 5.6% Increased risk for developing diabetes: 5.7-6.4% Diagnostic of diabetes: > or = 6.5% Monitoring of Diabetes Age (y)....................... Therapeutic Goal (%) Adults: >18.........................<7.0 Pediatrics: 13-18...................<7.5 Pediatrics: 7-12....................<8.0 Pediatrics: 0-6..................... 7.5-8.5 [employer]. Diabetes Care 33(S1), Oct 2009 Performed By: #### 4 548-4 #### ANKIT MURPHY ([id number]) [facility] ([facility]) [address] [place] [address] Hemoglobin A1c/Hemoglobin.to kj 09-01-2023 HbA1c (Bld) [Mass fraction] 4.8 % Normal see below [facility] Comment on above: Order Comment: Diagn osis of Diabetes-Adults Non-Diabetic: < or = 5.6% Increased risk for developing diabetes: 5.7-6.4% Diagnostic of diabetes: > or = 6.5% Monitoring of Diabetes Age (y)....................... Therapeutic Goal (%) Adults: >18.........................<7.0 Pediatrics: 13-18...................<7.5 Pediatrics: 7-12....................<8.0 Pediatrics: 0-6..................... 7.5-8.5 [employer]. Diabetes Care 33(S1), Oct 2009 Performed By: #### 4 548-4 #### ANKIT MURPHY ([id number]) [facility] ([facility]) [address] [place] [address] XR CHEST 2 VIEWSon 3 XR CHEST 2 VIEWS Interpreted By: Christin Oconnor, STUDY: XR CHEST 2 VIEWS; INDICATION: Signs/Symptoms:Preop. COMPARISON: Chest radiograph dated 08/25/2023 ACCESSION NUMBER(S): [id number] ORDERING CLINICIAN: AMTTHEW PÉREZ FINDINGS: The cardiac silhouette size is within normal limits. There is no focal consolidation, edema or pneumothorax. No sizeable pleural effusion. No acute osseous abnormality. A LINX device projects over the expected location of gastroesophageal junction. There is suggestion of increased gaping between the beads, which appears to be more pronounced on today's radiograph compared to prior radiograph dated 08/25/2023. IMPRESSION: 1. No acute cardiopulmonary process. 2. Interval evidence of increased gaping between the beads of LINX device, new on today's radiograph compared to immediate prior radiograph dated 08/25/2023. This could be projectional related to differences in patient positioning. However recommend correlation with patient's symptomatology. Signed by: Christin Oconnor 09/02/2023 10:12 PM Dictation workstation: [id number] [facility] XR Chest 2 Viewson 3 Radiology Study observation (narrative) [facility] [place] Work Phone: CT CERVICAL SPINE WO IV CONT [facility] 08-25-2023 CT CERVICAL SPINE WO IV CONTRAST Interpreted By: Omar Castaneda, STUDY: CT HEAD WO IV CONTRAST; CT CERVICAL SPINE WO IV CONTRAST; 08/25/2023 12:01 pm INDICATION: Trauma. Signs/Symptoms:FALL. COMPARISON: January 22, 2020 and July 15, [address] examinations[address] January 21, 2023 CT cervical spine. ACCESSION NUMBER(S): [id number]; [id number] ORDERING CLINICIAN: ABHI RICHARDS TECHNIQUE: Axial noncontrast head and cervical spine CT FINDINGS: Parenchyma: The mancilla-white differentiation is intact. There is no mass effect or midline shift. There is no intracranial hemorrhage. CSF Spaces: The ventricles, sulci and basal cisterns are within normal limits. There is no extraaxial fluid collection. Calvarium: No evidence of fracture was identified. Paranasal sinuses and mastoids: Minimal polypoid mucosal thickening posterior left maxillary sinus appears unchanged. Cervical spine: Alignment: Stable alignment. Cranial cervical junction: Intact. Fracture: No detected fracture. Vertebra and intervertebral disc spaces: Stable degree of degenerative change without evidence significant canal narrowing. Paravertebral soft tissues: No acute detected abnormality. Mild arterial vascular calcifications. Similar dependent ventilatory changes visualized portion of the lungs. Brain Injury (BIG) guidelines CT values: Skull fracture: No SDH (subdural hematoma): None detected EDH (epidural hemtoma): None detected IPH (intraparenchymal hemorrhage): None detected SAH (subarachnoid hemorrhage): None detected IVH (intraventricular hemorrhage): No Reference: Wilder Zavala, Jaxson RS, Nikki M, et al. The BIG (brain injury guidelines) project: defining the management of traumatic brain injury by acute care surgeons. J Trauma Acute Care Surg. 2014;76:397g085. IMPRESSION: No acute intracranial abnormality was identified. No detected fracture. Stable CT findings as reported. MACRO: None Signed by: Omar Castaneda 08/25/2023 12:24 PM Dictation workstation: [id number] [facility] CT HEAD WO IV CONTRASTon CT HEAD WO IV CONTRAST Interpreted By: Omar Castaneda, STUDY: CT HEAD WO IV CONTRAST; CT CERVICAL SPINE WO IV CONTRAST; 08/25/2023 12:01 pm INDICATION: Trauma. Signs/Symptoms:FALL. COMPARISON: January 22, 2020 and July 15, [address] examinations. January 21, 2023 CT cervical spine. ACCESSION NUMBER(S): [id number]; [id number] ORDERING CLINICIAN: ABHI RICHARDS TECHNIQUE: Axial noncontrast head and cervical spine CT FINDINGS: Parenchyma: The mancilla-white differentiation is intact. There is no mass effect or midline shift. There is no intracranial hemorrhage. CSF Spaces: The ventricles, sulci and basal cisterns are within normal limits. There is no extraaxial fluid collection. Calvarium: No evidence of fracture was identified. Paranasal sinuses and mastoids: Minimal polypoid mucosal thickening posterior left maxillary sinus appears unchanged. Cervical spine: Alignment: Stable alignment. Cranial cervical junction: Intact. Fracture: No detected fracture. Vertebra and intervertebral disc spaces: Stable degree of degenerative change without evidence significant canal narrowing. Paravertebral soft tissues: No acute detected abnormality. Mild arterial vascular calcifications. Similar dependent ventilatory changes visualized portion of the lungs. Brain Injury (BIG) guidelines CT values: Skull fracture: No SDH (subdural hematoma): None detected EDH (epidural hemtoma): None detected IPH (intraparenchymal hemorrhage): None detected SAH (subarachnoid hemorrhage): None detected IVH (intraventricular hemorrhage): No Reference: Wilder Zavala, Jaxson RS, Nikki M, et al. The BIG (brain injury guidelines) project: defining the management of traumatic brain injury by acute care surgeons. J Trauma Acute Care Surg. 2014;76:430a003. IMPRESSION: No acute intracranial abnormality was identified. No detected fracture. Stable CT findings as reported. MACRO: None Signed by: Omar Castaneda 08/25/2023 12:24 PM Dictation workstation: [id number] [facility] No Panel Informationon 08-25 No acute intracrania l abnormality was identified. No detected fracture. Stable CT findings as reported. MACRO: None Signed by: Omar Castaneda 08/25/2023 12:24 PM Dictation workstation: [id number] MMODAL Interpreted By: Omar Castaneda, STUDY: CT HEAD WO IV CONTRAST; CT CERVICAL SPINE WO IV CONTRAST; 08/25/2023 12:01 pm INDICATION: Trauma. Signs/Symptoms:FALL. COMPARISON: January 22, 2020 and July 15, [address] examinations. January 21, 2023 CT cervical spine. ACCESSION NUMBER(S): [id number]; [id number] ORDERING CLINICIAN: ABHI RICHARDS TECHNIQUE: Axial noncontrast head and cervical spine CT FINDINGS: Parenchyma: The mancilla-white differentiation is intact. There is no mass effect or midline shift. There is no intracranial hemorrhage. CSF Spaces: The ventricles, sulci and basal cisterns are within normal limits. There is no extraaxial fluid collection. Calvarium: No evidence of fracture was identified. Paranasal sinuses and mastoids: Minimal polypoid mucosal thickening posterior left maxillary sinus appears unchanged. Cervical spine: Alignment: Stable alignment. Cranial cervical junction: Intact. Fracture: No detected fracture. Vertebra and intervertebral disc spaces: Stable degree of degenerative change without evidence significant canal narrowing. Paravertebral soft tissues: No acute detected abnormality. Mild arterial vascular calcifications. Similar dependent ventilatory changes visualized portion of the lungs. Brain Injury (BIG) guidelines CT values: Skull fracture: No SDH (subdural hematoma): None detected EDH (epidural hemtoma): None detected IPH (intraparenchymal hemorrhage): None detected SAH (subarachnoid hemorrhage): None detected IVH (intraventricular hemorrhage): No Reference: Jaxson Gonzales, Nikki Rubio, et al. The BIG (brain injury guidelines) project: defining the management of traumatic brain injury by acute care surgeons. J Trauma Acute Care Surg. 2014;76:917x819. MMODAL Omar Castaneda MD - 08/25/2023 Interpreted By: Omar Castaneda, STUDY: CT HEAD WO IV CONTRAST; CT CERVICAL SPINE WO IV CONTRAST; 08/25/2023 12:01 pm INDICATION: Trauma. Signs/Symptoms:FALL. COMPARISON: January 22, 2020 and July 15, [address] examinations. January 21, 2023 CT cervical spine. ACCESSION NUMBER(S): [id number]; [id number] ORDERING CLINICIAN: ABHI RICHARDS TECHNIQUE: Axial noncontrast head and cervical spine CT FINDINGS: Parenchyma: The mancilla-white differentiation is intact. There is no mass effect or midline shift. There is no intracranial hemorrhage. CSF Spaces: The ventricles, sulci and basal cisterns are within normal limits. There is no extraaxial fluid collection. Calvarium: No evidence of fracture was identified. Paranasal sinuses and mastoids: Minimal polypoid mucosal thickening posterior left maxillary sinus appears unchanged. Cervical spine: Alignment: Stable alignment. Cranial cervical junction: Intact. Fracture: No detected fracture. Vertebra and intervertebral disc spaces: Stable degree of degenerative change without evidence significant canal narrowing. Paravertebral soft tissues: No acute detected abnormality. Mild arterial vascular calcifications. Similar dependent ventilatory changes visualized portion of the lungs. Brain Injury (BIG) guidelines CT values: Skull fracture: No SDH (subdural hematoma): None detected EDH (epidural hemtoma): None detected IPH (intraparenchymal hemorrhage): None detected SAH (subarachnoid hemorrhage): None detected IVH (intraventricular hemorrhage): No Reference: Jaxson Gonzales Sadoun M, et al. The BIG (brain injury guidelines) project: defining the management of traumatic brain injury by acute care surgeons. J Trauma Acute Care Surg. 2014;76:287m231. IMPRESSION: No acute intracranial abnormality was identified. No detected fracture. Stable CT findings as reported. MACRO: None Signed by: Omar Castaneda 08/25/2023 12:24 PM Dictation workstation: [id number] [facility] [place] Work Phone: Radiology Study observation (narrative) [facility] [place] Work Phone: No Panel InformationOrdered By: Omar Castaneda on 08-25-2023 [facility] [place] Work Phone: XR RIBS RIGHT 2 VIEWS WITH C HEST ANTEROPOSTERIORon 08-25-2023 XR RIBS RIGHT 2 VIEWS WITH CHEST ANTEROPOSTERIOR Interpreted By: Omar Castaneda, STUDY: XR RIBS RIGHT 2 VIEWS WITH CHEST ANTEROPOSTERIOR; ; 08/25/2023 12:08 pm INDICATION: Signs/Symptoms:FALL. COMPARISON: August 13, 2023 chest radiograph. ACCESSION NUMBER(S): [id number] ORDERING CLINICIAN: ABHI RICHARDS FINDINGS: Five views are submitted. The lungs are clear. Unchanged cardiomediastinal silhouette. No significant change distal esophageal LINX device. No detected fracture. Visualized portion of the abdomen is unremarkable. IMPRESSION: No acute detected abnormality. MACRO: None Signed by: Omar Castaneda 08/25/2023 12:26 PM Dictation workstation: [id number] [facility] XR Ribs - right 2 Viewson No acute detected abnormality. MACRO: None Signed by: Omar Castaneda 08/25/2023 12:26 PM Dictation workstation: [id number] [facility]AL Interpreted By: Omar Castaneda, STUDY: XR RIBS RIGHT 2 VIEWS WITH CHEST ANTEROPOSTERIOR; ; 08/25/2023 12:08 pm INDICATION: Signs/Symptoms:FALL. COMPARISON: August 13, 2023 chest radiograph. ACCESSION NUMBER(S): [id number] ORDERING CLINICIAN: ABHI RICHARDS FINDINGS: Five views are submitted. The lungs are clear. Unchanged cardiomediastinal silhouette. No significant change distal esophageal LINX device. No detected fracture. Visualized portion of the abdomen is unremarkable. [facility] MMODAL Omar Castaneda MD - 08/25/2023 Interpreted By: Omar Castaneda, STUDY: XR RIBS RIGHT 2 VIEWS WITH CHEST ANTEROPOSTERIOR; ; 08/25/2023 12:08 pm INDICATION: Signs/Symptoms:FALL. COMPARISON: August 13, 2023 chest radiograph. ACCESSION NUMBER(S): [id number] ORDERING CLINICIAN: ABHI RICHARDS FINDINGS: Five views are submitted. The lungs are clear. Unchanged cardiomediastinal silhouette. No significant change distal esophageal LINX device. No detected fracture. Visualized portion of the abdomen is unremarkable. IMPRESSION: No acute detected abnormality. MACRO: None Signed by: Omar Castaneda 08/25/2023 12:26 PM Dictation workstation: [id number] [facility] [place] Work Phone: [facility] [place] Work Phone: Radiology Study observation (narrative) [facility] [place] Work Phone: XR SACRUM COCCYX 2+ VIEWSon 08-25-2023 XR SACRUM COCCYX 2+ VIEWS Interpreted By: Omar Castaneda, STUDY: XR SACRUM COCCYX 2+ VIEWS; ; 08/25/2023 12:08 pm INDICATION: Signs/Symptoms:FALL. COMPARISON: None. ACCESSION NUMBER(S): [id number] ORDERING CLINICIAN: ABHI RICHARDS FINDINGS: Frontal and lateral views are submitted. Four views obtained. No detected fracture or subluxation. Heights of the visualized vertebra are maintained. Sacroiliac joints appear unremarkable. IMPRESSION: No detected fracture. MACRO: None Signed by: Omar Castaneda 08/25/2023 12:28 PM Dictation workstation: [id number] [facility] XR SHOULDER RIGHT 2+ VIEWSon 08-25-2023 XR SHOULDER RIGHT 2+ VIEWS Interpreted By: Omar Castaneda, STUDY: XR SHOULDER RIGHT 2+ VIEWS; ; 08/25/2023 12:07 pm INDICATION: Signs/Symptoms:FALL. COMPARISON: August 13, 2023 chest radiograph ACCESSION NUMBER(S): [id number] ORDERING CLINICIAN: ABHI RICHARDS FINDINGS: Two views demonstrate no detected fracture or dislocation. Mild degenerative spur acromioclavicular joint appears stable. No unusual periarticular abnormalities. IMPRESSION: No detected fracture or dislocation. MACRO: None Signed by: Omar Castaneda 08/25/2023 12:27 PM Dictation workstation: [id number] [facility] XR Sacrum and Coccyx 2 Views on 08-25-2023 No detected fracture . MACRO: None Signed by: Omar Castaneda 08/25/2023 12:28 PM Dictation workstation: [id number] MMODAL Interpreted By: Omar Castaneda, STUDY: XR SACRUM COCCYX 2+ VIEWS; ; 08/25/2023 12:08 pm INDICATION: Signs/Symptoms:FALL. COMPARISON: None. ACCESSION NUMBER(S): [id number] ORDERING CLINICIAN: ABHI RICHARDS FINDINGS: Frontal and lateral views are submitted. Four views obtained. No detected fracture or subluxation. Heights of the visualized vertebra are maintained. Sacroiliac joints appear unremarkable. [facility] MMODAL Omar Castaneda MD - 08/25/2023 Interpreted By: Omar Castaneda, STUDY: XR SACRUM COCCYX 2+ VIEWS; ; 08/25/2023 12:08 pm INDICATION: Signs/Symptoms:FALL. COMPARISON: None. ACCESSION NUMBER(S): [id number] ORDERING CLINICIAN: ABHI RICHARDS FINDINGS: Frontal and lateral views are submitted. Four views obtained. No detected fracture or subluxation. Heights of the visualized vertebra are maintained. Sacroiliac joints appear unremarkable. IMPRESSION: No detected fracture. MACRO: None Signed by: Omar Castaneda 08/25/2023 12:28 PM Dictation workstation: [id number] [facility] [place] Work Phone: [facility] [place] Work Phone: Radiology Study observation (narrative) [facility] [place] Work Phone: XR Shoulder - right 2 Viewso n 08-25-2023 No detected fracture or dislocation. MACRO: None Signed by: Omar Castaneda 08/25/2023 12:27 PM Dictation workstation: [id number] MMODAL Interpreted By: Omar Castaneda, STUDY: XR SHOULDER RIGHT 2+ VIEWS; ; 08/25/2023 12:07 pm INDICATION: Signs/Symptoms:FALL. COMPARISON: August 13, 2023 chest radiograph ACCESSION NUMBER(S): [id number] ORDERING CLINICIAN: ABHI RICHARDS FINDINGS: Two views demonstrate no detected fracture or dislocation. Mild degenerative spur acromioclavicular joint appears stable. No unusual periarticular abnormalities. [facility] MMODAL Omar Castaneda MD - 08/25/2023 Interpreted By: Omar Castaneda, STUDY: XR SHOULDER RIGHT 2+ VIEWS; ; 08/25/2023 12:07 pm INDICATION: Signs/Symptoms:FALL. COMPARISON: August 13, 2023 chest radiograph ACCESSION NUMBER(S): [id number] ORDERING CLINICIAN: ABHI RICHARDS FINDINGS: Two views demonstrate no detected fracture or dislocation. Mild degenerative spur acromioclavicular joint appears stable. No unusual periarticular abnormalities. IMPRESSION: No detected fracture or dislocation. MACRO: None Signed by: Omar Castaneda 08/25/2023 12:27 PM Dictation workstation: [id number] [facility] [place] Work Phone: [facility] [place] Work Phone: Radiology Study observation (narrative) [facility] [place] Work Phone: Bacteria identifiedon 2022 Bacteria identified Cx Nom (U) Test: Urine Culture Specimen Source: Clean Catch/Voided Specimen Type: Urine Specimen Date: 08/13/2023 10:16 AM Result Date: 08/14/2023 2:21 PM Result Status: Final result Abnormal: No Resulting Lab: [facility] [address] [address] CULTURE No growth Normal [facility] Comment on above: Performed By: #### 2 4321-2 #### ANKIT MURPHY ([id number]) [facility] ([facility]) [address] [place] [address] CBC W Auto Differential pane l (Bld)on 08-13-2023 Basophils (Bld) [#/Vol] 0.02 10*3/uL [facility] [place] Basophils/100 WBC (Bld) 0.4 % 0.0 - 2.0 % [facility] [place] Eosinophils (Bld) [#/Vol] 0.14 10*3/uL [facility] [place] Eosinophils/100 WBC (Bld) 2.7 % 0.0 - 6.0 % [facility] [place] Erythrocyte distribution width (RBC) [Ratio] 12.2 % 11.5 - 14.5 % [facility] [place] Hematocrit (Bld) [Volume fraction] 40.6 % 36.0 - 46.0 % [facility] [place] Hemoglobin (Bld) [Mass/Vol] 13.9 g/dL 12.0 - 16.0 g/dL [facility] [place] Immature granulocytes (Bld) [#/Vol] 0.03 10*3/uL [facility] [place] Immature granulocytes/100 WBC (Bld) 0.6 % 0.0 - 0.9 % [facility] [place] Comment on above: Immature Granulocyte Count (IG) includes promyelocytes, myelocytes and metamyelocytes but does not include bands. Percent differential counts (%) should be interpreted in the context of the absolute cell counts (cells/UL). Interpretation and review of laboratory results Abnormal [facility] [place] Lymphocytes (Bld) [#/Vol] 1.78 10*3/uL [facility] [place] Lymphocytes/100 WBC (Bld) 33.8 % 13.0 - 44.0 % [facility] [place] MCH (RBC) [Entitic mass] 31.3 pg 26.0 - 34.0 pg [facility] [place] MCHC (RBC) [Mass/Vol] 34.2 g/dL 32.0 - 36.0 g/dL [facility] [place] MCV (RBC) [Entitic vol] 91 fL 80 - 100 fL [facility] [place] Monocytes (Bld) [#/Vol] 0.42 10*3/uL [facility] [place] Monocytes/100 WBC (Bld) 8.0 % 2.0 - 10.0 % [facility] [place] Neutrophils (Bld) [#/Vol] 2.87 10*3/uL [facility] [place] Comment on above: Percent differential counts (%) should be interpreted in the context of the absolute cell counts (cells/uL). Neutrophils/100 WBC (Bld) 54.5 % 40.0 - 80.0 % [facility] [place] Nucleated RBC/100 WBC (Bld) [Ratio] 0.0 % [facility] [place] Platelet mean volume (Bld) [Entitic vol] 10.7 fL 7.5 - 11.5 fL [facility] [place] Platelets (Bld) [#/Vol] 99 10*3/uL Low [facility] [place] Comment on above: Platelet count verif ied by smear review. no plt clumps or clots seen RBC (Bld) [#/Vol] 4.44 10*6/uL [facility] WBC (Bld) [#/Vol] 5.3 10*3/uL [facility] Basophils (Bld) [#/Vol] 0.02 x10*3/uL Normal 0.00-0.10 [facility] Comment on above: Performed By: #### 5 7021-8 #### ANKIT MURPHY ([id number]) [facility] ([facility]) [address] [place] [address] Basophils/100 WBC (Bld) 0.4 % Normal 0.0-2.0 [facility] Comment on above: Performed By: #### 5 7021-8 #### ANKIT MURPHY ([id number]) [facility] ([facility]) [address] [place] [address] Eosinophils (Bld) [#/Vol] 0.14 x10*3/uL Normal 0.00-0.70 [facility] Comment on above: Performed By: #### 5 7021-8 #### ANKIT MURPHY ([id number]) [facility] ([facility]) [address] [place] [address] Eosinophils/100 WBC (Bld) 2.7 % Normal 0.0-6.0 [facility] Comment on above: Performed By: #### 5 7021-8 #### ANKIT MURPHY ([id number]) [facility] ([facility]) [address] [place] [address] Erythrocyte distribution width (RBC) [Ratio] 12.2 % Normal 11.5-14.5 [facility] Comment on above: Performed By: #### 5 7021-8 #### ANKIT MURPHY ([id number]) [facility] ([facility]) [address] [place] [address] Hematocrit (Bld) [Volume fraction] 40.6 % Normal 36.0-46.0 [facility] Comment on above: Performed By: #### 5 7021-8 #### ANKIT MURPHY ([id number]) [facility] ([facility]) [address] [place] [address] Hemoglobin (Bld) [Mass/Vol] 13.9 g/dL Normal 12.0-16.0 [facility] Comment on above: Performed By: #### 5 7021-8 #### ANKIT MURPHY ([id number]) [facility] ([facility]) [address] [place] [address] Immature granulocytes (Bld) [#/Vol] 0.03 x10*3/uL Normal 0.00-0.70 [facility] Comment on above: Performed By: #### 5 7021-8 #### ANKIT MURPHY ([id number]) [facility] ([facility]) [address] [place], [place] [address] Immature granulocytes/100 WBC (Bld) 0.6 % Normal 0.0-0.9 [facility] Comment on above: Result Comment: Suze ture Granulocyte Count (IG) includes promyelocytes, myelocytes and metamyelocytes but does not include bands. Percent differential counts (%) should be interpreted in the context of the absolute cell counts (cells/UL). Performed By: #### 5 7021-8 #### ANKIT MURPHY ([id number]) [facility] ([facility]) [address] [place], [place] [address] Lymphocytes (Bld) [#/Vol] 1.78 x10*3/uL Normal 1.20-4.80 [facility] Comment on above: Performed By: #### 5 7021-8 #### ANKIT MURPHY ([id number]) [facility] ([facility]) [address] [place] [address] Lymphocytes/100 WBC (Bld) 33.8 % Normal 13.0-44.0 [facility] Comment on above: Performed By: #### 5 7021-8 #### ANKIT MURPHY ([id number]) [facility] ([facility]) [address] [place] [address] MCH (RBC) [Entitic mass] 31.3 pg Normal 26.0-34.0 [facility] Comment on above: Performed By: #### 5 7021-8 #### ANKIT MURPHY ([id number]) [facility] ([facility]) [address] [place] [address] MCHC (RBC) [Mass/Vol] 34.2 g/dL Normal 32.0-36.0 [facility] Comment on above: Performed By: #### 5 7021-8 #### ANKIT MURPHY ([id number]) [facility] ([facility]) [address] [place] [address] MCV (RBC) [Entitic vol] 91 fL Normal 80-100 [facility] Comment on above: Performed By: #### 5 7021-8 #### ANKIT MURPHY ([id number]) [facility] ([facility]) [address] [place] [address] Monocytes (Bld) [#/Vol] 0.42 x10*3/uL Normal 0.10-1.00 [facility] Comment on above: Performed By: #### 5 7021-8 #### ANKIT MURPHY ([id number]) [facility] ([facility]) [address] [place] [address] Monocytes/100 WBC (Bld) 8.0 % Normal 2.0-10.0 [facility] Comment on above: Performed By: #### 5 7021-8 #### ANKIT MURPHY ([id number]) [facility] ([facility]) [address] [place] [address] Neutrophils (Bld) [#/Vol] 2.87 x10*3/uL Normal 1.20-7.70 [facility] Comment on above: Result Comment: Perc ent differential counts (%) should be interpreted in the context of the absolute cell counts (cells/uL). Performed By: #### 5 7021-8 #### ANKIT MURPHY ([id number]) [facility] ([facility]) [address] [place] [address] Neutrophils/100 WBC (Bld) 54.5 % Normal 40.0-80.0 [facility] Comment on above: Performed By: #### 5 7021-8 #### ANKIT MURPHY ([id number]) [facility] ([facility]) [address] [place] [address] Nucleated RBC/100 WBC (Bld) [Ratio] 0.0 /100 WBCs Normal 0.0-0.0 [facility] Comment on above: Performed By: #### 5 7021-8 #### ANKIT MURPHY ([id number]) [facility] ([facility]) [address] [place] [address] Platelet mean volume (Bld) [Entitic vol] 10.7 fL Normal 7.5-11.5 [facility] Comment on above: Performed By: #### 5 7021-8 #### ANKIT MURPHY ([id number]) [facility] ([facility]) [address] [place] [address] Platelets (Bld) [#/Vol] 99 x10*3/uL Low 150-450 [facility] Comment on above: Result Comment: Plat elet count verified by smear review. no plt clumps or clots seen Performed By: #### 5 7021-8 #### ANKIT MURPHY ([id number]) [facility] ([facility]) [address] [place] [address] RBC (Bld) [#/Vol] 4.44 x10*6/uL Normal 4.00-5.20 [facility] Comment on above: Performed By: #### 5 7021-8 #### ANKIT MURPHY ([id number]) [facility] ([facility]) [address] [place] [address] WBC (Bld) [#/Vol] 5.3 x10*3/uL Normal 4.4-11.3 [facility] Comment on above: Performed By: #### 5 7021-8 #### ANKIT MURPHY ([id number]) [facility] ([facility]) [address] [place] [address] Comprehensive metabolic 2000 panelon 08-13-2023 Albumin BCP dye [Mass/Vol] 4.1 g/dL 3.4 - 5.0 g/dL [facility] [place] ALP [Catalytic activity/Vol] 65 U/L 33 - 110 U/L [facility] ALT With P-5'-P [Catalytic activity/Vol] 14 U/L 7 - 45 U/L [facility] [place] Comment on above: Patients treated wit h Sulfasalazine may generate falsely decreased results for ALT. Anion gap [Moles/Vol] 13 mmol/L 10 - 2 0 mmol/L [facility] [place] AST With P-5'-P [Catalytic activity/Vol] 16 U/L 9 - 39 U/L [facility] [place] Bilirubin [Mass/Vol] 0.3 mg/dL 0.0 - 1 .2 mg/dL [facility] [place] Calcium [Mass/Vol] 9.1 mg/dL 8.6 - 10. 3 mg/dL [facility] [place] Chloride [Moles/Vol] 104 mmol/L 98 - 10 7 mmol/L [facility] [place] CO2 [Moles/Vol] 23 mmol/L 21 - 32 mmol/L [facility] [place] Creatinine [Mass/Vol] 1.28 mg/dL High 0.50 - 1.05 mg/dL [facility] [place] GFR/1.73 sq M.predicted MDRD (S/P/Bld) [Vol rate/Area] 51 mL/min/{1.73_m2} Low - PINF [facility] [place] Comment on above: Calculations of frieda mated GFR are performed using the 2020 CKD-EPI Study Refit equation without the race variable for the IDMS-Traceable creatinine methods. https://jasn.asnjournals.org/content//ASN.623508 5410 Glucose [Mass/Vol] 133 mg/dL High 74 - 99 mg/dL [facility] [place] Interpretation and review of laboratory results Abnormal [facility] Potassium [Moles/Vol] 3.7 mmol/L 3.5 - 5.3 mmol/L [facility] [place] Protein [Mass/Vol] 6.2 g/dL Low 6.4 - 8.2 g/dL [facility] Sodium [Moles/Vol] 136 mmol/L 136 - 145 mmol/L [facility] Urea nitrogen [Mass/Vol] 24 mg/dL High 6 - 23 mg/dL [facility] Albumin BCP dye [Mass/Vol] 4.1 g/dL Normal 3.4-5.0 [facility] Comment on above: Performed By: #### 2 4323-8 #### ANKIT MURPHY ([id number]) [facility] ([facility]) [address] [place] [address] ALP [Catalytic activity/Vol] 65 U/L Normal 33-110 [facility] Comment on above: Performed By: #### 2 4323-8 #### ANKIT MURPHY ([id number]) [facility] ([facility]) [address] [place] [address] ALT With P-5'-P [Catalytic activity/Vol] 14 U/L Normal 7-45 [facility] Comment on above: Result Comment: Marjan ents treated with Sulfasalazine may generate falsely decreased results for ALT. Performed By: #### 2 4323-8 #### ANKIT MURPHY ([id number]) [facility] ([facility]) [address] [place] [address] Anion gap [Moles/Vol] 13 mmol/L Normal 10-20 [facility] Comment on above: Performed By: #### 2 4323-8 #### ANKIT MURPHY ([id number]) [facility] ([facility]) [address] [place] [address] 55501 AST With P-5'-P [Catalytic activity/Vol] 16 U/L Normal 9-39 [facility] Comment on above: Performed By: #### 2 4323-8 #### ANKIT MURPHY ([id number]) [facility] ([facility]) [address] [place] [address] Bilirubin [Mass/Vol] 0.3 mg/dL Normal 0.0-1.2 [facility] Comment on above: Performed By: #### 2 4323-8 #### ANKIT MURPHY ([id number]) [facility] ([facility]) [address] [place] [address] 23071 Calcium [Mass/Vol] 9.1 mg/dL Normal 8.6-10.3 [facility] Comment on above: Performed By: #### 2 432-8 #### ANKIT MURPHY ([id number]) [facility] ([facility]) [address] [place] [address] 75659 Chloride [Moles/Vol] 104 mmol/L Normal 98-107 [facility] Comment on above: Performed By: #### 2 4323-8 #### ANKIT MURPHY ([id number]) [facility] ([facility]) [address] [place] [address] 12094 CO2 [Moles/Vol] 23 mmol/L Normal 21-32 [facility] Comment on above: Performed By: #### 2 4323-8 #### ANKIT MURPHY ([id number]) [facility] ([facility]) [address] [place] [address] 01599 Creatinine [Mass/Vol] 1.28 mg/dL High 0.50-1.05 [facility] Comment on above: Performed By: #### 2 4323-8 #### ANKIT MURPHY ([id number]) [facility] ([facility]) [address] [place] [address] 28835 GFR/1.73 sq M.predicted MDRD (S/P/Bld) [Vol rate/Area] 51 mL/min/1.73m*2 Low >60 [facility] Comment on above: Result Comment: Calc ulations of estimated GFR are performed using the 2020 CKD-EPI Study Refit equation without the race variable for the IDMS-Traceable creatinine methods. https://jasn.asnjournals.org/content//ASN.008409 6815 Performed By: #### 2 4323-8 #### ANKIT MURPHY ([id number]) [facility] ([facility]) [address] [place] [address] 47620 Glucose [Mass/Vol] 133 mg/dL High 74-99 [facility] Comment on above: Performed By: #### 2 4323-8 #### ANKIT MURPHY ([id number]) [facility] ([facility]) [address] [place] [address] 92105 Potassium [Moles/Vol] 3.7 mmol/L Normal 3.5-5.3 [facility] Comment on above: Performed By: #### 2 4323-8 #### ANKIT MURPHY ([id number]) [facility] ([facility]) [address] [place] [address] 15424 Protein [Mass/Vol] 6.2 g/dL Low 6.4-8.2 [facility] Comment on above: Performed By: #### 2 4323-8 #### ANKIT MURPHY ([id number]) [facility] ([facility]) [address] [place] [address] 82011 Sodium [Moles/Vol] 136 mmol/L Normal 136-145 [facility] Comment on above: Performed By: #### 2 4323-8 #### ANKIT MURPHY ([id number]) [facility] ([facility]) [address] [place] [address] 77673 Urea nitrogen [Mass/Vol] 24 mg/dL High 6-23 [facility] Comment on above: Performed By: #### 2 4323-8 #### ANKIT MURPHY ([id number]) [facility] ([facility]) [address] [place] [address] 82670 Extra Urine Hill Tubeon 10-2 Extra Tube Hold for add-ons. [facility] Comment on above: Auto resulted. [facility] Lactateon 08-13-2023 Lactate [Moles/Vol] 1.7 mmol/L 0.4 - 2. 0 mmol/L [facility] Lactate [Moles/Vol] 1.7 mmol/L Normal 0.4-2.0 [facility] Comment on above: Order Comment: Venip uncture immediately after or during the administration of Metamizole may lead to falsely low results. Testing should be performed immediately prior to Metamizole dosing. Performed By: #### 2 524-7 #### ANKIT MURPHY ([id number]) [facility] ([facility]) [facility] [place] [address] Lactate [Moles/Vol] 2.5 mmol/L High 0.4 - 2. 0 mmol/L [facility] Lactate [Moles/Vol] 2.5 mmol/L High 0.4-2.0 [facility] Comment on above: Order Comment: Venip uncture immediately after or during the administration of Metamizole may lead to falsely low results. Testing should be performed immediately prior to Metamizole dosing. Performed By: #### 2 524-7 #### ANKIT MURPHY ([id number]) [facility] ([facility]) [address] [place] [address] Lactate [Moles/Vol]on 2022 Interpretation and review of laboratory results Normal [facility] Venipuncture immediately after or during the administration of Metamizole may lead to falsely low results. Testing should be performed immediately prior to Metamizole dosing. [facility] Interpretation and review of laboratory results Abnormal [facility] Venipuncture immediately after or during the administration of Metamizole may lead to falsely low results. Testing should be performed immediately prior to Metamizole dosing. [facility] No Panel Informationon 08-13 Interpretation and review of laboratory results Abnormal [facility] Tropinin I.cardiac panel Hig h sensitivity methodon 08-13-2023 Interpretation and review of laboratory results Normal [facility] Less than 99th percentile of normal range cutoff- Female and children under 18 years old <14 ng/L; Male <21 ng/L: Negative Repeat testing should be performed if clinically indicated. Female and children under 18 years old 14-50 ng/L; Male 21-50 ng/L: Consistent with possible cardiac damage and possible increased clinical risk. Serial measurements may help to assess extent of myocardial damage. >50 ng/L: Consistent with cardiac damage, increased clinical risk and myocardial infarction. Serial measurements may help assess extent of myocardial damage. NOTE: Children less than 1 year old may have higher baseline troponin levels and results should be interpreted in conjunction with the overall clinical context. NOTE: Troponin I testing is performed using a different testing methodology at [facility] than at other [facility]. Direct result comparisons should only be made within the same method. [facility] Interpretation and review of laboratory results Normal [facility] Less than 99th percentile of normal range cutoff- Female and children under 18 years old <14 ng/L; Male <21 ng/L: Negative Repeat testing should be performed if clinically indicated. Female and children under 18 years old 14-50 ng/L; Male 21-50 ng/L: Consistent with possible cardiac damage and possible increased clinical risk. Serial measurements may help to assess extent of myocardial damage. >50 ng/L: Consistent with cardiac damage, increased clinical risk and myocardial infarction. Serial measurements may help assess extent of myocardial damage. NOTE: Children less than 1 year old may have higher baseline troponin levels and results should be interpreted in conjunction with the overall clinical context. NOTE: Troponin I testing is performed using a different testing methodology at [facility] than at other [facility]. Direct result comparisons should only be made within the same method. [facility] Troponin I, High Sensitivity , Initialon 08-13-2023 Tropinin I.cardiac panel High sensitivity method 8 ng/L 0 - 13 ng/L [facility] Troponin I.cardiac panelon 1 Tropinin I.cardiac panel High sensitivity method 8 ng/L Normal 0-13 [facility] Comment on above: Order Comment: Less than 99th percentile of normal range cutoff- Female and children under 18 years old <14 ng/L; Male <21 ng/L: Negative Repeat testing should be performed if clinically indicated. Female and children under 18 years old 14-50 ng/L; Male 21-50 ng/L: Consistent with possible cardiac damage and possible increased clinical risk. Serial measurements may help to assess extent of myocardial damage. >50 ng/L: Consistent with cardiac damage, increased clinical risk and myocardial infarction. Serial measurements may help assess extent of myocardial damage. NOTE: Children less than 1 year old may have higher baseline troponin levels and results should be interpreted in conjunction with the overall clinical context. NOTE: Troponin I testing is performed using a different testing methodology at [facility] than at other [facility]. Direct result comparisons should only be made within the same method. Performed By: #### 8 9577-1 #### ANKIT MURPHY ([id number]) [facility] ([facility]) [address] [place], [place] [address] Tropinin I.cardiac panel High sensitivity method 8 ng/L Normal 0-13 [facility] Comment on above: Order Comment: Less than 99th percentile of normal range cutoff- Female and children under 18 years old <14 ng/L; Male <21 ng/L: Negative Repeat testing should be performed if clinically indicated. Female and children under 18 years old 14-50 ng/L; Male 21-50 ng/L: Consistent with possible cardiac damage and possible increased clinical risk. Serial measurements may help to assess extent of myocardial damage. >50 ng/L: Consistent with cardiac damage, increased clinical risk and myocardial infarction. Serial measurements may help assess extent of myocardial damage. NOTE: Children less than 1 year old may have higher baseline troponin levels and results should be interpreted in conjunction with the overall clinical context. NOTE: Troponin I testing is performed using a different testing methodology at [facility] than at other [facility]. Direct result comparisons should only be made within the same method. Performed By: #### 8 9577-1 #### ANKIT MURPHY ([id number]) [facility] ([facility]) [address] [place], [place] [address] Troponin, High Sensitivity, 1 Houron 08-13-2023 Tropinin I.cardiac panel High sensitivity method 8 ng/L 0 - 13 ng/L [facility] Urinalysis complete W Reflex Culture panel (U)on 08-13-2023 Appearance (U) Hazy Abnormal Clear [facility] Bilirubin (U) [Mass/Vol] Negative NEGATIVE [facility] Color (U) Yellow Straw, Yellow [facility] Glucose Auto test strip (U) [Mass/Vol] Negative NEGATIVE mg/dL [facility] Ketones (U) [Mass/Vol] Negative NEGATIVE mg/dL [facility] Leukocyte esterase Auto test strip Ql (U) SMALL (1+) Abnormal NEGATIVE [facility] Nitrite Auto test strip Ql (U) Negative NEGATIVE [facility] pH (U) 5.0 [pH] 5.0, 5.5, 6.0, 6.5, 7.0, 7.5, 8.0 [facility] Protein (U) [Mass/Vol] 30 (1+) Abnormal NEGATIVE mg/dL [facility] RBC (U) [#/Vol] Negative NEGATIVE [facility] Specific gravity (U) [Rel density] 1.020 1.005 - 1.035 [facility] Urobilinogen (U) [Mass/Vol] mg/dL NINF - 2.0 mg/dL [facility] Appearance (U) Hazy Normal Clear [facility] Comment on above: Performed By: #### 2 4321-2 #### ANKIT MURPHY ([id number]) [facility] ([facility]) [address] [place] [address] 38345 Bilirubin (U) [Mass/Vol] Negative Normal NEGATIVE [facility] Comment on above: Performed By: #### 2 4321-2 #### ANKIT MURPHY ([id number]) [facility] ([facility]) [address] [place] [address] 60445 Color (U) Yellow Normal Straw, Yellow [facility] Comment on above: Performed By: #### 2 4321-2 #### ANKIT MURPHY ([id number]) [facility] ([facility]) [address] [place] [address] 17267 Glucose Auto test strip (U) [Mass/Vol] Negative Normal NEGATIVE [facility] Comment on above: Performed By: #### 2 4321-2 #### ANKIT MURPHY ([id number]) [facility] ([facility]) [address] [place] [address] 21400 Ketones (U) [Mass/Vol] Negative Normal NEGATIVE [facility] Comment on above: Performed By: #### 2 4321-2 #### ANKIT MURPHY ([id number]) [facility] ([facility]) [address] [place] [address] 85841 Leukocyte esterase Auto test strip Ql (U) SMALL (1+) Abnormal NEGATIVE [facility] Comment on above: Performed By: #### 2 4321-2 #### ANKIT MURPHY ([id number]) [facility] ([facility]) [address] [place] [address] 73272 Nitrite Auto test strip Ql (U) Negative Normal NEGATIVE [facility] Comment on above: Performed By: #### 2 4320-2 #### ANKIT MURPHY ([id number]) [facility] ([facility]) [address] [place] [address] 69599 pH (U) 5.0 [pH] Normal 5.0, 5.5, 6.0, 6.5, 7.0, 7.5, 8.0 [facility] Comment on above: Performed By: #### 2 4320-2 #### ANKIT MURPHY ([id number]) [facility] ([facility]) [address] [place] [address] 66909 Protein (U) [Mass/Vol] 30 (1+) Normal NEGATIVE [facility] Comment on above: Performed By: #### 2 1-2 #### ANKIT MURPHY ([id number]) [facility] ([facility]) [address] [place] [address] 61616 RBC (U) [#/Vol] Negative Normal NEGATIVE [facility] Comment on above: Performed By: #### 2 1-2 #### ANKIT MURPHY ([id number]) [facility] ([facility]) [address] [place] [address] 96094 Specific gravity (U) [Rel density] 1.020 Normal 1.005-1.035 [facility] Comment on above: Performed By: #### 2 1-2 #### ANKIT MURPHY ([id number]) [facility] ([facility]) [address] [place] [address] Urobilinogen (U) [Mass/Vol] mg/dL Normal <2.0 [facility] Comment on above: Performed By: #### 2 4321-2 #### ANKIT MURPHY ([id number]) [facility] ([facility]) [address] [place] [address] Urinalysis microscopic panel Auto Ql (U)on 08-13-2023 Bacteria Auto (Urine sed) [#/Area] 1+ Abnormal NONE SEEN /HPF [facility] Epithelial cells.squamous Auto (Urine sed) [#/Area] 26-50 (1+) Reference range not established. /HPF [facility] Hyaline casts Auto (Urine sed) [#/Area] OCCASIONAL Abnormal NONE /LPF [facility] Mucus Auto (Urine sed) [#/Area] 1+ Reference range not established. /LPF [facility] RBC Auto (Urine sed) [#/Area] 1-2 NONE, 1-2, 3-5 /HPF [facility] WBC Auto (Urine sed) [#/Area] 11-20 Abnormal 1-5, NONE /HPF [facility] Bacteria Auto (Urine sed) [#/Area] 1+ /HPF Abnormal NONE SEEN [facility] Comment on above: Performed By: #### 2 4321-2 #### ANKIT MURPHY ([id number]) [facility] ([facility]) [address] [place] [address] Epithelial cells.squamous Auto (Urine sed) [#/Area] 26-50 (1+) Normal Reference range not established. [facility] Comment on above: Performed By: #### 2 4321-2 #### ANKIT MURPHY ([id number]) [facility] ([facility]) [address] [place] [address] Hyaline casts Auto (Urine sed) [#/Area] OCCASIONAL Abnormal NONE [facility] Comment on above: Performed By: #### 2 4321-2 #### ANKIT MURPHY ([id number]) [facility] ([facility]) [address] [place] [address] Mucus Auto (Urine sed) [#/Area] 1+ /LPF Normal Reference range not established. [facility] Comment on above: Performed By: #### 2 4321-2 #### ANKIT MURPHY ([id number]) [facility] ([facility]) [address] [place] [address] 30525 RBC Auto (Urine sed) [#/Area] 1-2 Normal NONE, 1-2, 3-5 [facility] Comment on above: Performed By: #### 2 4321-2 #### ANKIT MURPHY ([id number]) [facility] ([facility]) [address] [place] [address] 51654 WBC Auto (Urine sed) [#/Area] 11-20 Abnormal 1-5, NONE [facility] Comment on above: Performed By: #### 2 4321-2 #### ANKIT MURPHY ([id number]) [facility] ([facility]) [address] [place] [address] XR CHEST 1 VIEWon 08-13-2023 XR CHEST 1 VIEW Interpreted By: Derrick Ledesma, STUDY: XR CHEST 1 VIEW; 08/13/2023 7:50 am INDICATION: Signs/Symptoms:Hyperten lia. COMPARISON: CT scan abdomen and pelvis dated 11/23/2019. Chest x-rays, most recent from 06/13/2023. ACCESSION NUMBER(S): [id number] ORDERING CLINICIAN: LOPEZ GUTIERREZ TECHNIQUE: Single AP portable view of the chest was obtained. FINDINGS: MEDIASTINUM/ LUNGS/ MAYRA: No cardiomegaly, vascular congestion, or pleural effusion. No abnormal opacity in either lung worrisome for tumor or pneumonia. No pneumothorax. No tracheal deviation. No abnormal hilar fullness or gross mass on either side. BONES: No lytic or blastic destructive bone lesion. UPPER ABDOMEN: Linx device in place at the GE junction, unchanged. IMPRESSION: Stable Linx device at the GE junction. Otherwise, negative exam. Signed by: Derrick Bob 08/13/2023 8:15 AM Dictation workstation: [id number] Normal [facility] XR Chest Single viewon 08-13 Stable Linx device a t the GE junction. Otherwise, negative exam. Signed by: Derrick Bob 08/13/2023 8:15 AM Dictation workstation: [id number] MMODAL Interpreted By: Derrick Ledesma, STUDY: XR CHEST 1 VIEW; 08/13/2023 7:50 am INDICATION: Signs/Symptoms:Hyperten lia. COMPARISON: CT scan abdomen and pelvis dated 11/23/2019. Chest x-rays, most recent from 06/13/2023. ACCESSION NUMBER(S): [id number] ORDERING CLINICIAN: LOPEZ GUTIERREZ TECHNIQUE: Single AP portable view of the chest was obtained. FINDINGS: MEDIASTINUM/ LUNGS/ MAYRA: No cardiomegaly, vascular congestion, or pleural effusion. No abnormal opacity in either lung worrisome for tumor or pneumonia. No pneumothorax. No tracheal deviation. No abnormal hilar fullness or gross mass on either side. BONES: No lytic or blastic destructive bone lesion. UPPER ABDOMEN: Linx device in place at the GE junction, unchanged. MMODAL Derrick Bob MD - 08/13/2023 Interpreted By: Derrick Bob, STUDY: XR CHEST 1 VIEW; 08/13/2023 7:50 am INDICATION: Signs/Symptoms:Hyperten lia. COMPARISON: CT scan abdomen and pelvis dated 11/23/2019. Chest x-rays, most recent from 06/13/2023. ACCESSION NUMBER(S): [id number] ORDERING CLINICIAN: LOPEZ GUTIERREZ TECHNIQUE: Single AP portable view of the chest was obtained. FINDINGS: MEDIASTINUM/ LUNGS/ MAYRA: No cardiomegaly, vascular congestion, or pleural effusion. No abnormal opacity in either lung worrisome for tumor or pneumonia. No pneumothorax. No tracheal deviation. No abnormal hilar fullness or gross mass on either side. BONES: No lytic or blastic destructive bone lesion. UPPER ABDOMEN: Linx device in place at the GE junction, unchanged. IMPRESSION: Stable Linx device at the GE junction. Otherwise, negative exam. Signed by: Derrick Bob 08/13/2023 8:15 AM Dictation workstation: [id number] [facility] Work Phone: Radiology Study observation (narrative) [facility] Work Phone: XR Chest Single viewOrdered By: Derrick Bob on 08-13-2023 [facility] Work Phone: Basic metabolic 2000 panelon 08-01-2023 Anion gap [Moles/Vol] 12 mmol/L Normal 10-20 [facility] Comment on above: Performed By: #### 2 4321-2 #### ANKIT MURPHY ([id number]) [facility] ([facility]) [address] [place] [address] Calcium [Mass/Vol] 9.5 mg/dL Normal 8.6-10.3 [facility] Comment on above: Performed By: #### 2 4321-2 #### ANKIT MURPHY ([id number]) [facility] ([facility]) [address] [place] [address] Chloride [Moles/Vol] 103 mmol/L Normal 98-107 [facility] Comment on above: Performed By: #### 2 4321-2 #### ANKIT MURPHY ([id number]) [facility] ([facility]) [address] [place] [address] CO2 [Moles/Vol] 28 mmol/L Normal 21-32 [facility] Comment on above: Performed By: #### 2 4321-2 #### ANKIT MURPHY ([id number]) [facility] ([facility]) [address] [place] [address] Creatinine [Mass/Vol] 1.40 mg/dL High 0.50-1.05 [facility] Comment on above: Performed By: #### 2 4321-2 #### ANKIT MURPHY ([id number]) [facility] ([facility]) [facility] [place] [address] GFR/1.73 sq M.predicted MDRD (S/P/Bld) [Vol rate/Area] 46 mL/min/1.73m*2 Low >60 [facility] Comment on above: Result Comment: Calc ulations of estimated GFR are performed using the 2020 CKD-EPI Study Refit equation without the race variable for the IDMS-Traceable creatinine methods. https://jasn.asnjournals.org/content//ASN.405396 6697 Performed By: #### 2 4321-2 #### ANKIT MURPHY ([id number]) [facility] ([facility]) [address] [place] [address] 75553 Glucose [Mass/Vol] 91 mg/dL Normal 74-99 [facility] Comment on above: Performed By: #### 2 4321-2 #### ANKIT MURPHY ([id number]) [facility] ([facility]) [address] [place] [address] 54363 Potassium [Moles/Vol] 4.6 mmol/L Normal 3.5-5.3 [facility] Comment on above: Performed By: #### 2 4321-2 #### ANKIT MURPHY ([id number]) [facility] ([facility]) [address] [place] [address] 75954 Sodium [Moles/Vol] 138 mmol/L Normal 136-145 [facility] Comment on above: Performed By: #### 2 4321-2 #### ANKIT MURPHY ([id number]) [facility] ([facility]) [address] [place] [address] 67647 Urea nitrogen [Mass/Vol] 26 mg/dL High 6-23 [facility] Comment on above: Performed By: #### 2 4321-2 #### ANIKT MURPHY ([id number]) [facility] ([facility]) [address] [place] [address] 14243 CBC W Auto Differential pane l (Bld)on 08-01-2023 Basophils (Bld) [#/Vol] 0.01 x10*3/uL Normal 0.00-0.10 [facility] Comment on above: Performed By: #### 5 7021-8 #### ANKIT MURPHY ([id number]) [facility] ([facility]) [address] [place] [address] 10455 Basophils/100 WBC (Bld) 0.2 % Normal 0.0-2.0 [facility] Comment on above: Performed By: #### 5 7021-8 #### ANKIT MURPHY ([id number]) [facility] ([facility]) [address] [place] [address] 50506 Eosinophils (Bld) [#/Vol] 0.08 x10*3/uL Normal 0.00-0.70 [facility] Comment on above: Performed By: #### 7021-8 #### ANKIT MURPHY ([id number]) [facility] ([facility]) [address] [place] [address] 36136 Eosinophils/100 WBC (Bld) 1.5 % Normal 0.0-6.0 [facility] Comment on above: Performed By: #### 7021-8 #### ANKIT MURPHY ([id number]) [facility] ([facility]) [address] [place] [address] 15779 Erythrocyte distribution width (RBC) [Ratio] 12.6 % Normal 11.5-14.5 [facility] Comment on above: Performed By: #### 5 7021-8 #### ANKIT MURPHY ([id number]) [facility] ([facility]) [address] [place] [address] 22192 Hematocrit (Bld) [Volume fraction] 42.3 % Normal 36.0-46.0 [facility] Comment on above: Performed By: #### 5 7021-8 #### ANKIT MURPHY ([id number]) [facility] ([facility]) [address] [place] [address] 14004 Hemoglobin (Bld) [Mass/Vol] 14.0 g/dL Normal 12.0-16.0 [facility] Comment on above: Performed By: #### 5 7021-8 #### ANKIT MURPHY ([id number]) [facility] ([facility]) [address] [place] [address] 39112 Immature granulocytes (Bld) [#/Vol] 0.02 x10*3/uL Normal 0.00-0.70 [facility] Comment on above: Performed By: #### 7021-8 #### ANKIT MURHPY ([id number]) [facility] ([facility]) [address] [place] [address] 28891 Immature granulocytes/100 WBC (Bld) 0.4 % Normal 0.0-0.9 [facility] Comment on above: Result Comment: Suze ture Granulocyte Count (IG) includes promyelocytes, myelocytes and metamyelocytes but does not include bands. Percent differential counts (%) should be interpreted in the context of the absolute cell counts (cells/UL). Performed By: #### 5 7021-8 #### ANKIT MURPHY ([id number]) [facility] ([facility]) [address] [place] [address] 19821 Lymphocytes (Bld) [#/Vol] 1.37 x10*3/uL Normal 1.20-4.80 [facility] Comment on above: Performed By: #### 5 7021-8 #### ANKIT MURPHY ([id number]) [facility] ([facility]) [address] [place] [address] 19007 Lymphocytes/100 WBC (Bld) 25.1 % Normal 13.0-44.0 [facility] Comment on above: Performed By: #### 5 7021-8 #### ANKIT MURPHY ([id number]) [facility] ([facility]) [address] [place] [address] 51788 MCH (RBC) [Entitic mass] 30.4 pg Normal 26.0-34.0 [facility] Comment on above: Performed By: #### 5 7021-8 #### ANKIT MURPHY ([id number]) [facility] ([facility]) [address] [place] [address] 97060 MCHC (RBC) [Mass/Vol] 33.1 g/dL Normal 32.0-36.0 [facility] Comment on above: Performed By: #### 5 7021-8 #### ANKIT MURPHY ([id number]) [facility] ([facility]) [address] [place] [address] 53547 MCV (RBC) [Entitic vol] 92 fL Normal 80-100 [facility] Comment on above: Performed By: #### 5 7021-8 #### ANKIT MURPHY ([id number]) [facility] ([facility]) [address] [place] [address] 46349 Monocytes (Bld) [#/Vol] 0.49 x10*3/uL Normal 0.10-1.00 [facility] Comment on above: Performed By: #### 5 7021-8 #### ANKIT MURPHY ([id number]) [facility] ([facility]) [address] [place] [address] 43178 Monocytes/100 WBC (Bld) 9.0 % Normal 2.0-10.0 [facility] Comment on above: Performed By: #### 5 7021-8 #### ANKIT MURPHY ([id number]) [facility] ([facility]) [address] [place] [address] 43524 Neutrophils (Bld) [#/Vol] 3.48 x10*3/uL Normal 1.20-7.70 [facility] Comment on above: Result Comment: Perc ent differential counts (%) should be interpreted in the context of the absolute cell counts (cells/uL). Performed By: #### 5 7021-8 #### ANKIT MURPHY ([id number]) [facility] ([facility]) [address] [place] [address] 42276 Neutrophils/100 WBC (Bld) 63.8 % Normal 40.0-80.0 [facility] Comment on above: Performed By: #### 5 7021-8 #### ANKIT MURPHY ([id number]) [facility] ([facility]) [address] [place] [address] 72716 Nucleated RBC/100 WBC (Bld) [Ratio] 0.0 /100 WBCs Normal 0.0-0.0 [facility] Comment on above: Performed By: #### 5 7021-8 #### ANKIT MUPRHY ([id number]) [facility] ([facility]) [address] [place] [address] 98267 Platelet mean volume (Bld) [Entitic vol] 10.5 fL Normal 7.5-11.5 [facility] Comment on above: Performed By: #### 5 7021-8 #### ANKIT MURPHY ([id number]) [facility] ([facility]) [address] [place] [address] 84586 Platelets (Bld) [#/Vol] 122 x10*3/uL Low 150-450 [facility] Comment on above: Result Comment: Gracia fishameka by repeat analysis Performed By: #### 5 7021-8 #### ANKIT MURPHY ([id number]) [facility] ([facility]) [address] [place] [address] RBC (Bld) [#/Vol] 4.61 x10*6/uL Normal 4.00-5.20 [facility] Comment on above: Performed By: #### 5 7021-8 #### ANKIT MURPHY ([id number]) [facility] ([facility]) [address] [place] [address] WBC (Bld) [#/Vol] 5.5 x10*3/uL Normal 4.4-11.3 [facility] Comment on above: Performed By: #### 5 7021-8 #### ANKIT MURPHY ([id number]) [facility] ([facility]) [address] [place] [address] Urinalysis complete W Reflex Culture panel (U)on 08-01-2023 Appearance (U) Clear Normal Clear [facility] Comment on above: Performed By: #### 5 8077-9 #### ANKIT MURPHY ([id number]) [facility] ([facility]) [address] [place] [address] Bilirubin (U) [Mass/Vol] Negative Normal NEGATIVE [facility] Comment on above: Performed By: #### 5 8077-9 #### ANKIT MURPHY ([id number]) [facility] ([facility]) [address] [place], [place] [address] Color (U) Straw Normal Straw, Yellow [facility] Comment on above: Performed By: #### 5 8077-9 #### ANKIT MURPHY ([id number]) [facility] ([facility]) [address] [place] [address] 83666 Glucose Auto test strip (U) [Mass/Vol] Negative Normal NEGATIVE [facility] Comment on above: Performed By: #### 5 8077-9 #### ANKIT MURPHY ([id number]) [facility] ([facility]) [address] [place] [address] 54647 Ketones (U) [Mass/Vol] Negative Normal NEGATIVE [facility] Comment on above: Performed By: #### 5 8077-9 #### ANKIT MURPHY ([id number]) [facility] ([facility]) [address] [place] [address] 16118 Leukocyte esterase Auto test strip Ql (U) Negative Normal NEGATIVE [facility] Comment on above: Performed By: #### 5 8077-9 #### ANKIT MURPHY ([id number]) [facility] ([facility]) [address] [place] [address] Nitrite Auto test strip Ql (U) Negative Normal NEGATIVE [facility] Comment on above: Performed By: #### 5 8077-9 #### ANKIT MURPHY ([id number]) [facility] ([facility]) [address] [place] [address] 01004 pH (U) 7.0 [pH] Normal 5.0, 5.5, 6.0, 6.5, 7.0, 7.5, 8.0 [facility] Comment on above: Performed By: #### 5 8077-9 #### ANKIT MURPHY ([id number]) [facility] ([facility]) [address] [place] [address] 15251 Protein (U) [Mass/Vol] Negative Normal NEGATIVE [facility] Comment on above: Performed By: #### 5 8077-9 #### ANKIT MURPHY ([id number]) [facility] ([facility]) [address] [place] [address] 79077 RBC (U) [#/Vol] Negative Normal NEGATIVE [facility] Comment on above: Performed By: #### 5 8077-9 #### ANKIT MURPHY ([id number]) [facility] ([facility]) [address] [place] [address] 67478 Specific gravity (U) [Rel density] 1.013 Normal 1.005-1.035 [facility] Comment on above: Performed By: #### 5 8077-9 #### ANKIT MURPHY ([id number]) [facility] ([facility]) [address] [place] [address] 06435 Urobilinogen (U) [Mass/Vol] mg/dL Normal <2.0 [facility] Comment on above: Performed By: #### 5 8077-9 #### ANKIT MURPHY ([id number]) [facility] ([facility]) [address] [place] [address] CBC W Auto Differential pane l (Bld)on 07-29-2023 Basophils (Bld) [#/Vol] 0.02 x10*3/uL Normal 0.00-0.10 [facility] Comment on above: Performed By: #### 5 7021-8 #### ANKIT MURPHY ([id number]) [facility] ([facility]) [address] [place] [address] 51537 Basophils/100 WBC (Bld) 0.4 % Normal 0.0-2.0 [facility] Comment on above: Performed By: #### 5 7021-8 #### ANKIT MURPHY ([id number]) [facility] ([facility]) [address] [place] [address] 67596 Eosinophils (Bld) [#/Vol] 0.10 x10*3/uL Normal 0.00-0.70 [facility] Comment on above: Performed By: #### 5 7021-8 #### ANKIT MURPHY ([id number]) [facility] ([facility]) [address] [place] [address] 74599 Eosinophils/100 WBC (Bld) 1.8 % Normal 0.0-6.0 [facility] Comment on above: Performed By: #### 5 7021-8 #### ANKIT MURPHY ([id number]) [facility] ([facility]) [address] [place] [address] 38362 Erythrocyte distribution width (RBC) [Ratio] 12.8 % Normal 11.5-14.5 [facility] Comment on above: Performed By: #### 5 7021-8 #### ANKIT MURPHY ([id number]) [facility] ([facility]) [address] [place] [address] Hematocrit (Bld) [Volume fraction] 42.9 % Normal 36.0-46.0 [facility] Comment on above: Performed By: #### 5 7021-8 #### ANKIT MURPHY ([id number]) [facility] ([facility]) [address] [place] [address] Hemoglobin (Bld) [Mass/Vol] 14.4 g/dL Normal 12.0-16.0 [facility] Comment on above: Performed By: #### 5 7021-8 #### ANKIT MURPHY ([id number]) [facility] ([facility]) [address] [place] [address] Immature granulocytes (Bld) [#/Vol] 0.04 x10*3/uL Normal 0.00-0.70 [facility] Comment on above: Performed By: #### 5 7021-8 #### ANKIT MURPHY ([id number]) [facility] ([facility]) [address] [place], [place] [address] Immature granulocytes/100 WBC (Bld) 0.7 % Normal 0.0-0.9 [facility] Comment on above: Result Comment: Suze ture Granulocyte Count (IG) includes promyelocytes, myelocytes and metamyelocytes but does not include bands. Percent differential counts (%) should be interpreted in the context of the absolute cell counts (cells/UL). Performed By: #### 5 7021-8 #### ANKIT MURPHY ([id number]) [facility] ([facility]) [address] [place] [address] 42503 Lymphocytes (Bld) [#/Vol] 1.85 x10*3/uL Normal 1.20-4.80 [facility] Comment on above: Performed By: #### 5 7021-8 #### ANKIT MURPHY ([id number]) [facility] ([facility]) [address] [place] [address] 74093 Lymphocytes/100 WBC (Bld) 32.6 % Normal 13.0-44.0 [facility] Comment on above: Performed By: #### 5 7021-8 #### ANKIT MURPHY ([id number]) [facility] ([facility]) [address] [place] [address] 20355 MCH (RBC) [Entitic mass] 31.0 pg Normal 26.0-34.0 [facility] Comment on above: Performed By: #### 5 7021-8 #### ANKIT MURPHY ([id number]) [facility] ([facility]) [address] [place] [address] 56410 MCHC (RBC) [Mass/Vol] 33.6 g/dL Normal 32.0-36.0 [facility] Comment on above: Performed By: #### 5 7021-8 #### ANKIT MURPHY ([id number]) [facility] ([facility]) [address] [place] [address] 07923 MCV (RBC) [Entitic vol] 93 fL Normal 80-100 [facility] Comment on above: Performed By: #### 5 7021-8 #### ANKIT MURPHY ([id number]) [facility] ([facility]) [address] [place] [address] 92382 Monocytes (Bld) [#/Vol] 0.49 x10*3/uL Normal 0.10-1.00 [facility] Comment on above: Performed By: #### 5 7021-8 #### ANKIT MURPHY ([id number]) [facility] ([facility]) [address] [place] [address] 78295 Monocytes/100 WBC (Bld) 8.6 % Normal 2.0-10.0 [facility] Comment on above: Performed By: #### 5 7021-8 #### ANKIT MURPHY ([id number]) [facility] ([facility]) [address] [place] [address] 25417 Neutrophils (Bld) [#/Vol] 3.18 x10*3/uL Normal 1.20-7.70 [facility] Comment on above: Result Comment: Perc ent differential counts (%) should be interpreted in the context of the absolute cell counts (cells/uL). Performed By: #### 5 7021-8 #### ANKIT MURPHY ([id number]) [facility] ([facility]) [address] [place] [address] 16396 Neutrophils/100 WBC (Bld) 55.9 % Normal 40.0-80.0 [facility] Comment on above: Performed By: #### 5 7021-8 #### ANKIT MURPHY ([id number]) [facility] ([facility]) [address] [place] [address] 62134 Nucleated RBC/100 WBC (Bld) [Ratio] 0.0 /100 WBCs Normal 0.0-0.0 [facility] Comment on above: Performed By: #### 5 7021-8 #### ANKIT MURPHY ([id number]) [facility] ([facility]) [address] [place] [address] 96205 Platelet mean volume (Bld) [Entitic vol] 11.3 fL Normal 7.5-11.5 [facility] Comment on above: Performed By: #### 5 7021-8 #### ANKIT MURPHY ([id number]) [facility] ([facility]) [address] [place] [address] 42481 Platelets (Bld) [#/Vol] 130 x10*3/uL Low 150-450 [facility] Comment on above: Performed By: #### 5 7021-8 #### ANKIT MURPHY ([id number]) [facility] ([facility]) [address] [place] [address] 39649 RBC (Bld) [#/Vol] 4.64 x10*6/uL Normal 4.00-5.20 [facility] Comment on above: Performed By: #### 5 7021-8 #### ANKIT MURPHY ([id number]) [facility] ([facility]) [address] [place] [address] 23287 WBC (Bld) [#/Vol] 5.7 x10*3/uL Normal 4.4-11.3 [facility] Comment on above: Performed By: #### 5 7021-8 #### ANKIT MURPHY ([id number]) [facility] ([facility]) [address] [place] [address] Comprehensive metabolic 2000 panelon 07-29-2023 Albumin BCP dye [Mass/Vol] 4.4 g/dL Normal 3.4-5.0 [facility] Comment on above: Performed By: #### 2 4323-8 #### ANKIT MURPHY ([id number]) [facility] ([facility]) [address] [place] [address] ALP [Catalytic activity/Vol] 60 U/L Normal 33-110 [facility] Comment on above: Performed By: #### 2 4323-8 #### ANKIT MURPHY ([id number]) [facility] ([facility]) [address] [place] [address] ALT With P-5'-P [Catalytic activity/Vol] 15 U/L Normal 7-45 [facility] Comment on above: Result Comment: Marjan ents treated with Sulfasalazine may generate falsely decreased results for ALT. Performed By: #### 2 4323-8 #### ANKIT MURPHY ([id number]) [facility] ([facility]) [address] [place] [address] 22964 Anion gap [Moles/Vol] 10 mmol/L Normal 10-20 [facility] Comment on above: Performed By: #### 2 4323-8 #### ANKIT MURPHY ([id number]) [facility] ([facility]) [address] [place] [address] 77949 AST With P-5'-P [Catalytic activity/Vol] 18 U/L Normal 9-39 [facility] Comment on above: Performed By: #### 2 4323-8 #### ANKIT MURPHY ([id number]) [facility] ([facility]) [address] [place], [place] [address] Bilirubin [Mass/Vol] 0.3 mg/dL Normal 0.0-1.2 [facility] Comment on above: Performed By: #### 2 4323-8 #### ANKIT MURPHY ([id number]) [facility] ([facility]) [address] [place] [address] 55342 Calcium [Mass/Vol] 9.9 mg/dL Normal 8.6-10.3 [facility] Comment on above: Performed By: #### 2 4323-8 #### ANKIT MURPHY ([id number]) [facility] ([facility]) [address] [place] [address] 64385 Chloride [Moles/Vol] 102 mmol/L Normal 98-107 [facility] Comment on above: Performed By: #### 2 4323-8 #### ANKIT MURPHY ([id number]) [facility] ([facility]) [address] [place] [address] 35764 CO2 [Moles/Vol] 31 mmol/L Normal 21-32 [facility] Comment on above: Performed By: #### 2 4323-8 #### ANKIT MURPHY ([id number]) [facility] ([facility]) [address] [place] [address] 97815 Creatinine [Mass/Vol] 1.32 mg/dL High 0.50-1.05 [facility] Comment on above: Performed By: #### 2 4323-8 #### ANKIT MURHPY ([id number]) [facility] ([facility]) [address] [place] [address] 72559 GFR/1.73 sq M.predicted MDRD (S/P/Bld) [Vol rate/Area] 50 mL/min/1.73m*2 Low >60 [facility] Comment on above: Result Comment: Calc ulations of estimated GFR are performed using the 2020 CKD-EPI Study Refit equation without the race variable for the IDMS-Traceable creatinine methods. https://jasn.asnjournals.org/content//ASN.200365 5845 Performed By: #### 2 4323-8 #### ANKIT MURPHY ([id number]) [facility] ([facility]) [address] [place] [address] 57252 Glucose [Mass/Vol] 85 mg/dL Normal 74-99 [facility] Comment on above: Performed By: #### 2 4323-8 #### ANKIT MURPHY ([id number]) [facility] ([facility]) [facility] [place] [address] Potassium [Moles/Vol] 4.9 mmol/L Normal 3.5-5.3 [facility] Comment on above: Performed By: #### 2 4323-8 #### ANKIT MURPHY ([id number]) [facility] ([facility]) [address] [place] [address] 42957 Protein [Mass/Vol] 6.8 g/dL Normal 6.4-8.2 [facility] Comment on above: Performed By: #### 2 4323-8 #### ANKIT MURPHY ([id number]) [facility] ([facility]) [address] [place] [address] 45900 Sodium [Moles/Vol] 138 mmol/L Normal 136-145 [facility] Comment on above: Performed By: #### 2 4323-8 #### ANKIT MURPHY ([id number]) [facility] ([facility]) [address] [place] [address] 36510 Urea nitrogen [Mass/Vol] 22 mg/dL Normal 6-23 [facility] Comment on above: Performed By: #### 2 4323-8 #### ANKIT MURPHY ([id number]) [facility] ([facility]) [address] [place] [id number] Valproateon 07-29-2023 Valproate [Mass/Vol] 48 ug/mL Low 50-100 [facility] Comment on above: Performed By: #### 4 086-5 #### ANKIT MURPHY ([id number]) [facility] ([facility]) [address] [place] [id number] HEAD WO CONTRASTon 2022 CT HEAD WO CONTRAST Normal [facility] Provider Note - ED v3on 06-19 Provider Note - ED v3 Normal [facility] Risk Screen - Adult Emergenc yon 07-16-2023 Risk Screen - Adult Emergency Normal [facility] Triage - EDon 07-16-2023 Triage - ED Normal [facility] POCT UA Automated manually r esultedon 07-13-2023 Appearance (U) Cloudy Abnormal Clear [facility] [place] Work Phone: Glucose Test strip (U) [Mass/Vol] Negative NEGATIVE mg/dl [facility] [place] Work Phone: Hemoglobin Ql (U) Negative NEGATIVE [facility] Work Phone: Interpretation and review of laboratory results Abnormal [facility] [place] Work Phone: Leukocyte esterase Test strip Ql (U) Negative NEGATIVE [facility] [place] Work Phone: Nitrite Ql (U) Negative NEGATIVE [facility] [place] Work Phone: pH (U) 6.0 [pH] No Reference Range Established [facility] [place] Work Phone: POC Bilirubin, Urine Negative NEGATIVE [facility] Color, Urine Yellow Straw, Yellow, Light Yellow [facility] [place] Work Phone: POC Ketones, Urine Negative NEGATIVE mg/dl [facility] [place] Work Phone: POC Protein, Urine Negative NEGATIVE, 30 (1+) mg/dl [facility] [place] Work Phone: POC Specific [place], Urine 1.025 1.005 - 1.035 [facility] [place] Work Phone: POC Urobilinogen, Urine 0.2 0.2, 1.0 EU/DL [facility] [place] Work Phone: [facility] [place] Work Phone: OT Progress Noteon 3 OT Progress Note No report was sent Normal [employer] Therapy Communicationon 05-19 Therapy Communication Message REEMA SHAH canceled today . Signatures Electronically signed by : CRISTIAN Rod/Jerilyn; Jun 15 2023 3:55PM EST (Author) Normal Touchworks APTTon 06-14-2023 aPTT Coag (Bld) [Time] 31 s Normal 27 - 38 [facility] Comment on above: Result Comment: Note new reference range as of 04/06/2023 at 10:00am. Performed By: #### A PTT ####[address] [address] BNPon 06-14-2023 Natriuretic peptide B (Bld) [Mass/Vol] 75 pg/mL Normal 0 - 99 [facility] Comment on above: Result Comment: . <1 00 pg/mL - Heart failure [id number] pg/mL - Intermediate probability of acute heart. failure exacerbation. Correlate with clinical. context and patient history. >=300 pg/mL - Heart Failure likely. Correlate with clinical. context and patient history.BNP testing is performed using different testingmethodology at [facility] than [facility]. Direct result comparisons shouldonly be made within the same method. Performed By: #### B NP2 ####[address] [address] CBC AND DIFFERENTIALon 06-14 % AUTOMATED IMMATURE GRAN 0.9 % Normal 0.0 - 0.9 [facility] Comment on above: Result Comment: Suze ture Granulocyte Count (IG) includes promyelocytes, myelocytes and metamyelocytes but does not include bands. Percent differential counts (%) should be interpreted in the context of the absolute cell counts (cells/L). Performed By: #### C BCDF ####[address] [address] Basophils (Bld) [#/Vol] 0.01 10*3/uL Normal 0.00 - 0.10 [facility] Comment on above: Performed By: #### C BCDF ####[address] [address] Basophils/100 WBC (Bld) 0.2 % Normal 0.0 - 2.0 [facility] Comment on above: Performed By: #### C BCDF ####[address] [address] Eosinophils (Bld) [#/Vol] 0.11 10*3/uL Normal 0.00 - 0.70 [facility] Comment on above: Performed By: #### C BCDF ####[address] [address] Eosinophils/100 WBC (Bld) 2.1 % Normal 0.0 - 6.0 [facility] Comment on above: Performed By: #### C BCDF ####[address] [address] Erythrocyte distribution width (RBC) [Ratio] 12.8 % Normal 11.5 - 14.5 [facility] Comment on above: Performed By: #### C BCDF ####[address] [address] Hematocrit (Bld) [Volume fraction] 40.1 % Normal 36.0 - 46.0 [facility] Comment on above: Performed By: #### C BCDF ####[address] [address] Hemoglobin (Bld) [Mass/Vol] 13.8 g/dL Normal 12.0 - 16.0 [facility] Comment on above: Performed By: #### C BCDF ####[address] [address] Lymphocytes (Bld) [#/Vol] 1.37 10*3/uL Normal 1.20 - 4.80 [facility] Comment on above: Performed By: #### C BCDF ####[address] [address] Lymphocytes/100 WBC (Bld) 26.0 % Normal 13.0 - 44.0 [facility] Comment on above: Performed By: #### C BCDF ####[address] [address] MCHC (RBC) [Mass/Vol] 34.4 g/dL Normal 32.0 - 36.0 [facility] Comment on above: Performed By: #### C BCDF ####[address] [address] MCV (RBC) [Entitic vol] 89 fL Normal 80 - 100 [facility] Comment on above: Performed By: #### C BCDF ####[address] [address] Monocytes (Bld) [#/Vol] 0.39 10*3/uL Normal 0.10 - 1.00 [facility] Comment on above: Performed By: #### C BCDF ####[address] [address] Monocytes/100 WBC (Bld) 7.4 % Normal 2.0 - 10.0 [facility] Comment on above: Performed By: #### C BCDF ####[address] [address] Neutrophils (Bld) [#/Vol] 3.34 10*3/uL Normal 1.20 - 7.70 [facility] Comment on above: Result Comment: Perc ent differential counts (%) should be interpreted in the context of the absolute cell counts (cells/L). Performed By: #### C BCDF ####[address] [address] Neutrophils/100 WBC (Bld) 63.4 % Normal 40.0 - 80.0 [facility] Comment on above: Performed By: #### C BCDF ####[address] [address] Platelets (Bld) [#/Vol] 111 10*3/uL Low 150 - 450 [facility] Comment on above: Performed By: #### C BCDF ####[address] [address] RBC 4.51 x10E12/L Normal 4.00 - 5.20 [facility] Comment on above: Performed By: #### C BCDF ####[address] [address] WBC (Bld) [#/Vol] 5.3 10*3/uL Normal 4.4 - 11.3 [facility] Comment on above: Performed By: #### C BCDF ####[address] [address] CHEST 1 VIEWon 06-14-2023 CHEST 1 VIEW Normal [facility] COMPREHENSIVE PANELon 2022 Albumin [Mass/Vol] 4.0 g/dL Normal 3.4 - 5.0 [facility] Comment on above: Performed By: #### C MP ####[address] [address] ALP [Catalytic activity/Vol] 66 U/L Normal 33 - 110 [facility] Comment on above: Performed By: #### C MP ####[address] [address] ALT [Catalytic activity/Vol] 8 U/L Normal 7 - 45 [facility] Comment on above: Result Comment: Marjan ents treated with Sulfasalazine may generate falsely decreased results for ALT. Performed By: #### C MP ####[address] [address] Anion gap [Moles/Vol] 11 mmol/L Normal 10 - 20 [facility] Comment on above: Performed By: #### C MP ####[address] [address] AST [Catalytic activity/Vol] 12 U/L Normal 9 - 39 [facility] Comment on above: Performed By: #### C MP ####[address] [address] Bilirubin [Mass/Vol] 0.3 mg/dL Normal 0.0 - 1.2 [facility] Comment on above: Performed By: #### C MP ####[address] [address] Calcium [Mass/Vol] 8.5 mg/dL Low 8.6 - 10.3 [facility] Comment on above: Performed By: #### C MP ####[address] [address] Chloride [Moles/Vol] 104 mmol/L Normal 98 - 107 [facility] Comment on above: Performed By: #### C MP ####[address] [address] Creatinine [Mass/Vol] 1.11 mg/dL High 0.50 - 1.05 [facility] Comment on above: Performed By: #### C MP ####[address] [address] GFR/1.73 sq M.predicted among non-blacks MDRD (S/P/Bld) [Vol rate/Area] 61 mL/min/{1.73_m2} Normal >90 [facility] Comment on above: Result Comment: CALC ULATIONS OF ESTIMATED GFR ARE PERFORMED USING THE 2020 CKD-EPI STUDY REFIT EQUATION WITHOUT THE RACE VARIABLE FOR THE IDMS-TRACEABLE CREATININE METHODS.https://jasn.asnjournals.org/content/early/ N.0457715010 Performed By: #### C MP ####[address] [address] Glucose [Mass/Vol] 95 mg/dL Normal 74 - 99 [facility] Comment on above: Performed By: #### C MP ####[address] [address] HCO3 (Bld) [Moles/Vol] 26 mmol/L Normal 21 - 32 [facility] Comment on above: Performed By: #### C MP ####[address] [address] Potassium [Moles/Vol] 4.2 mmol/L Normal 3.5 - 5.3 [facility] Comment on above: Performed By: #### C MP ####[address] [address] Protein [Mass/Vol] 6.1 g/dL Low 6.4 - 8.2 [facility] Comment on above: Performed By: #### C MP ####[address] [address] Sodium [Moles/Vol] 137 mmol/L Normal 136 - 145 [facility] Comment on above: Performed By: #### C MP ####[address] [address] Urea nitrogen [Mass/Vol] 19 mg/dL Normal 6 - 23 [facility] Comment on above: Performed By: #### C MP ####[address] [place] [address] MAGNESIUMon 06-14-2023 Magnesium [Mass/Vol] 1.61 mg/dL Normal 1.60 - 2.40 [facility] Comment on above: Performed By: #### M G ####[address] [address] PT/INRon 06-14-2023 PT Coag (PPP) [Time] 10.3 s Normal 9.8 - 12.8 [facility] Comment on above: Result Comment: Note new reference range as of 04/06/2023 at 10:00am. Performed By: #### P TINR ####[address] [address] PT, INR 0.9 Normal 0.9 - 1.1 [facility] Comment on above: Performed By: #### P TINR ####[address] [address] Provider Note - ED v3on 05-19 Provider Note - ED v3 Normal [facility] Risk Screen - Adult Emergenc yon 06-14-2023 Risk Screen - Adult Emergency Normal [facility] TROPONIN I, HIGH SENSITIVITY on 06-14-2023 TROPONIN I, HIGH SENSITIVITY Canceled Normal [facility] Comment on above: Order Comment: TEST TROPONIN I, HIGH SENSITIVITY WAS CANCELLED, 06/14/2023 01:31 pt being dcand no longer needs . Result Comment: .Les s than 99th percentile of normal range cutoff-Female and children under 18 years old <14 ng/L; Male <21 ng/L: NegativeRepeat testing should be performed if clinically indicated..Female and children under 18 years old 14-50 ng/L; Male 21-50 ng/L:Consistent with possible cardiac damage and possible increased clinicalrisk. Serial measurements may help to assess extent of myocardial damage..>50 ng/L: Consistent with cardiac damage, increased clinical risk andmyocardial infarction. Serial measurements may help assess extent ofmyocardial damage..NOTE: Children less than 1 year old may have higher baseline troponinlevels and results should be interpreted in conjunction with the overallclinical context..NOTE: Troponin I testing is performed using a differenttesting methodology at [facility] than [facility]. Direct result comparisons should onlybe made within the same method. Performed By: #### T [facility] ####[id number] [place] [address] TROPONIN I, HIGH SENSITIVITY 7 ng/L Normal 0 - 13 [facility] Comment on above: Result Comment: .Les s than 99th percentile of normal range cutoff-Female and children under 18 years old <14 ng/L; Male <21 ng/L: NegativeRepeat testing should be performed if clinically indicated..Female and children under 18 years old 14-50 ng/L; Male 21-50 ng/L:Consistent with possible cardiac damage and possible increased clinicalrisk. Serial measurements may help to assess extent of myocardial damage..>50 ng/L: Consistent with cardiac damage, increased clinical risk andmyocardial infarction. Serial measurements may help assess extent ofmyocardial damage..NOTE: Children less than 1 year old may have higher baseline troponinlevels and results should be interpreted in conjunction with the overallclinical context..NOTE: Troponin I testing is performed using a differenttesting methodology at [facility] than [facility]. Direct result comparisons should onlybe made within the same method. Performed By: #### T [facility] ####[address] [address] TROPONIN I, HIGH SENSITIVITY 8 ng/L Normal 0 - 13 [facility] Comment on above: Result Comment: .Les s than 99th percentile of normal range cutoff-Female and children under 18 years old <14 ng/L; Male <21 ng/L: NegativeRepeat testing should be performed if clinically indicated..Female and children under 18 years old 14-50 ng/L; Male 21-50 ng/L:Consistent with possible cardiac damage and possible increased clinicalrisk. Serial measurements may help to assess extent of myocardial damage..>50 ng/L: Consistent with cardiac damage, increased clinical risk andmyocardial infarction. Serial measurements may help assess extent ofmyocardial damage..NOTE: Children less than 1 year old may have higher baseline troponinlevels and results should be interpreted in conjunction with the overallclinical context..NOTE: Troponin I testing is performed using a differenttesting methodology at [facility] than [facility]. Direct result comparisons should onlybe made within the same method. Performed By: #### T [facility] ####[facility] [place] [address] Triage - EDon 06-14-2023 Triage - ED Normal [facility] Activated Partial Thrombopla stin Timeon 06-13-2023 aPTT Coag (PPP) [Time] 31 s 27 - 38 [facility] [place] Work Phone: Comment on above: Note new reference r sharda as of 04/06/2023 at 10:00am. Complete Blood Count + Diffe rentialon 06-13-2023 Basophils/100 WBC (Bld) 0.2 % 0.0 - 2.0 [facility] [place] Work Phone: Erythrocyte distribution width (RBC) [Ratio] 12.8 % See Below [facility] [place] Work Phone: Comment on above: Reference Range: 11. 5 - 14.5 Hematocrit (Bld) [Volume fraction] 40.1 % See Below [facility] [place] Work Phone: Comment on above: Reference Range: 36. 0 - 46.0 Hemoglobin (Bld) [Mass/Vol] 13.8 g/dL See Below [facility] [place] Work Phone: Comment on above: Reference Range: 12. 0 - 16.0 Lymphocytes/100 WBC (Bld) 26.0 % See Below [facility] [place] Work Phone: Comment on above: Reference Range: 13. 0 - 44.0 MCHC (RBC) [Mass/Vol] 34.4 g/dL See Below [facility] [place] Work Phone: Comment on above: Reference Range: 32. 0 - 36.0 MCV (RBC) [Entitic vol] 89 fL 80 - 100 [facility] [place] Work Phone: Monocytes/100 WBC (Bld) 7.4 % 2.0 - 10.0 [facility] Work Phone: Neutrophils/100 WBC (Bld) 63.4 % See Below [facility] Work Phone: Comment on above: Reference Range: 40. 0 - 80.0 Platelets (Bld) [#/Vol] 111 10*3/uL below low threshold 150 - 450 [facility] Work Phone: RBC (Bld) [#/Vol] 4.51 {x10E12/L} See Below [facility] [place] Work Phone: Comment on above: Reference Range: 4.0 0 - 5.20 WBC (Bld) [#/Vol] 5.3 10*3/uL 4.4 - 11.3 [facility] Work Phone: Complete Blood Count + Differential 0.01 {x10E9/L} See Below [facility] [place] Work Phone: Comment on above: Reference Range: 0.0 0 - 0.10 Complete Blood Count + Differential 0.11 {x10E9/L} See Below [facility] [place] Work Phone: Comment on above: Reference Range: 0.0 0 - 0.70 Complete Blood Count + Differential 0.39 {x10E9/L} See Below [facility] [place] Work Phone: Comment on above: Reference Range: 0.1 0 - 1.00 Complete Blood Count + Differential 1.37 {x10E9/L} See Below [facility] [place] Work Phone: Comment on above: Reference Range: 1.2 0 - 4.80 Complete Blood Count + Differential 3.34 {x10E9/L} See Below [facility] [place] Work Phone: Comment on above: Reference Range: 1.2 0 - 7.70 Percent differential counts (%) should be interpreted in the context of the absolute cell counts (cells/L). Complete Blood Count + Differential 2.1 % 0.0 - 6.0 [facility] [place] Work Phone: Complete Blood Count + Differential 0.9 % 0.0 - 0.9 [facility] [place] Work Phone: Comment on above: Immature Granulocyte Count (IG) includes promyelocytes, myelocytes and metamyelocytes but does not include bands. Percent differential counts (%) should be interpreted in the context of the absolute cell counts (cells/L). Laboratory - Chemistry and C hemistry - challengeon 06-13-2023 Albumin BCP dye [Mass/Vol] 4.0 g/dL 3.4 - 5.0 [facility] [place] Work Phone: ALP [Catalytic activity/Vol] 66 U/L 33 - 110 [facility] [place] Work Phone: ALT With P-5'-P [Catalytic activity/Vol] 8 U/L 7 - 45 [facility] [place] Work Phone: Comment on above: Patients treated wit h Sulfasalazine may generate falsely decreased results for ALT. Anion gap [Moles/Vol] 11 mmol/L 10 - 20 [facility] [place] Work Phone: AST With P-5'-P [Catalytic activity/Vol] 12 U/L 9 - 39 [facility] [place] Work Phone: Bilirubin [Mass/Vol] 0.3 mg/dL 0.0 - 1.2 [facility] bean [place] Work Phone: Calcium [Mass/Vol] 8.5 mg/dL below low threshold 8.6 - 10.3 [facility] [place] Work Phone: Chloride [Moles/Vol] 104 mmol/L 98 - 107 [facility]-[place] Work Phone: CO2 [Moles/Vol] 26 mmol/L 21 - 32 [facility] [place] Work Phone: Creatinine [Mass/Vol] 1.11 mg/dL above high threshold See Below [facility] [place] Work Phone: Comment on above: Reference Range: 0.5 0 - 1.05 Glucose [Mass/Vol] 95 mg/dL 74 - 99 [facility] Work Phone: Potassium [Moles/Vol] 4.2 mmol/L 3.5 - 5.3 [facility] [place] Work Phone: Protein [Mass/Vol] 6.1 g/dL below low threshold 6.4 - 8.2 [facility] [place] Work Phone: Sodium [Moles/Vol] 137 mmol/L 136 - 145 [facility] Work Phone: Urea nitrogen [Mass/Vol] 19 mg/dL 6 - 23 [facility] [place] Work Phone: Laboratory - Coagulationon 0 06-13-2023 INR Coag (PPP) [Relative time] 0.9 {INR} 0.9 - 1.1 [facility] [place] Work Phone: PT Coag (PPP) [Time] 10.3 s 9.8 - 12.8 [facility] [place] Work Phone: Comment on above: Note new reference r sharda as of 04/06/2023 at 10:00am. Magnesium, Serumon Magnesium [Mass/Vol] 1.61 mg/dL See Below [facility] [place] Work Phone: Comment on above: Reference Range: 1.6 0 - 2.40 No Panel Informationon 06-13 75 pg/mL 0 - 99 [facility] Work Phone: Comment on above: . <100 pg/mL - Heart failure [id number] pg/mL - Intermediate probability of acute heart. failure exacerbation. Correlate with clinical. context and patient history. >=300 pg/mL - Heart Failure likely. Correlate with clinical. context and patient history.BNP testing is performed using different testing methodology at [facility] than at other [facility]. Direct result comparisons should only be made within the same method. 61 {mL/min/1.73m2} >90 [facility] Work Phone: Comment on above: CALCULATIONS OF FRIEDA MATED GFR ARE PERFORMED USING THE 2020 CKD-EPI STUDY REFIT EQUATION WITHOUT THE RACE VARIABLE FOR THE IDMS-TRACEABLE CREATININE METHODS.https://jasn.asnjournals.org/content/early// N.4458991928 Radiologyon 06-13-2023 XR Chest Single view Normal [facility] Work Phone: TROPONIN I, HIGH SENSITIVITY on 06-13-2023 Tropinin I.cardiac panel High sensitivity method 7 ng/L 0 - 13 [facility] [place] Work Phone: Comment on above: .Less than 99th perc entile of normal range cutoff-Female and children under 18 years old <14 ng/L; Male <21 ng/L: NegativeRepeat testing should be performed if clinically indicated. .Female and children under 18 years old 14-50 ng/L; Male 21-50 ng/L:Consistent with possible cardiac damage and possible increased clinical risk. Serial measurements may help to assess extent of myocardial damage. .>50 ng/L: Consistent with cardiac damage, increased clinical risk andmyocardial infarction. Serial measurements may help assess extent of myocardial damage. . NOTE: Children less than 1 year old may have higher baseline troponin levels and results should be interpreted in conjunction with the overall clinical context. .NOTE: Troponin I testing is performed using a different testing methodology at [facility] than at [facility]. Direct result comparisons should only be made within the same method. Tropinin I.cardiac panel High sensitivity method 8 ng/L 0 - 13 [facility] Work Phone: Comment on above: .Less than 99th perc entile of normal range cutoff-Female and children under 18 years old <14 ng/L; Male <21 ng/L: NegativeRepeat testing should be performed if clinically indicated. .Female and children under 18 years old 14-50 ng/L; Male 21-50 ng/L:Consistent with possible cardiac damage and possible increased clinical risk. Serial measurements may help to assess extent of myocardial damage. .>50 ng/L: Consistent with cardiac damage, increased clinical risk andmyocardial infarction. Serial measurements may help assess extent of myocardial damage. . NOTE: Children less than 1 year old may have higher baseline troponin levels and results should be interpreted in conjunction with the overall clinical context. .NOTE: Troponin I testing is performed using a different testing methodology at [facility] than at other [facility]. Direct result comparisons should only be made within the same method. OT Progress Noteon 3 OT Progress Note Therapy Diagnosis Assessed Decreased coordination (781.3) (R27.8) Tremor (781.0) (R25.1) Assessment Pt demos significant DEBORAH and core tremors with block stacking, knocking down multiple times. Pt completing x3 minutes on ergometer with no difficulty. Pt demos more difficulty beading with R hand. Adult Risk Screening There are spiritual/cultural practices/values/needs that are important to know: Initial Fall Risk Screening: REEMA has fallen in the last 6 months. She has fallen due to LOB. Her fall did not result in injury. REEMA has a fear of falling. She needs assistance with . Needs assistance walking in her home. She needs assistance in an unfamiliar setting. The patient is using an assistive device. Fall Risk Screening: Patient is identified as a fall risk. Care Plan: High Risk: Low and Moderate risk interventions plus: ensure patient is escorted at all times, do not leave unattended, inform provider of high risk status, discharge by wheelchair or escort assistance, room location, sitter, pre and post sedation/procedure standards, supervised toileting. Please identify location of pain: none at this time. The pain makes it hard for the patient to do these things: self-care (bathing, dressing, eating). Insurance Insurance reviewed Visit number: 2 Medicaid Onset Date: 2022 Subjective Patient reports:. Pt reporting the doctors want pt to work on UB and LB strength. Pt reporting she is not doing PT right now. Pt reporting her tremors are bad today and especially bad since she is mad. Treatment Time in clinic started at 1115 am Time in clinic ended at 1200 pm Total time in clinic is 45 minutes. Total timed code time is 43 minutes. Therapeutic exercise (66815): timed minutes 15 . 7200-0781 UE ergometer on level 1 x3 minutes Passing 2.2lb ball between UE x15. Therapeutic Activity (70774):. [id number] Stacking 1 inch blocks into towers of x2, x5 towers DEBORAH with 5lb resistance [id number] [facility] beading large beads onto string x12 DEBORAH. 'Scores and Scales' Signatures Electronically signed by : MANNY Rod; Jun 08 2023 4:39PM EST (Author) Normal [facility] Therapy Communicationon 05-18 Therapy Communication Message REEMA SHAH canceled today 06/04/23. No reason given. Signatures Electronically signed by : NUVIA Hernandez/Jerilyn; Jun 04 2023 9:28AM EST (Author) Normal [facility] CBC AND DIFFERENTIALon 06-02 % AUTOMATED IMMATURE GRAN 0.9 % Normal 0.0 - 0.9 [facility] Comment on above: Result Comment: Suze ture Granulocyte Count (IG) includes promyelocytes, myelocytes and metamyelocytes but does not include bands. Percent differential counts (%) should be interpreted in the context of the absolute cell counts (cells/L). Performed By: #### C BCDF ####[facility] [place] [address] Basophils (Bld) [#/Vol] 0.02 10*3/uL Normal 0.00 - 0.10 [facility] Comment on above: Performed By: #### C BCDF ####[address] [address] Basophils/100 WBC (Bld) 0.4 % Normal 0.0 - 2.0 [facility] Comment on above: Performed By: #### C BCDF ####[address] [address] Eosinophils (Bld) [#/Vol] 0.11 10*3/uL Normal 0.00 - 0.70 [facility] Comment on above: Performed By: #### C BCDF ####[address] [address] Eosinophils/100 WBC (Bld) 2.0 % Normal 0.0 - 6.0 [facility] Comment on above: Performed By: #### C BCDF ####[address] [address] Erythrocyte distribution width (RBC) [Ratio] 12.5 % Normal 11.5 - 14.5 [facility] Comment on above: Performed By: #### C BCDF ####[address] [address] Hematocrit (Bld) [Volume fraction] 43.7 % Normal 36.0 - 46.0 [facility] Comment on above: Performed By: #### C BCDF ####[address] [address] Hemoglobin (Bld) [Mass/Vol] 14.6 g/dL Normal 12.0 - 16.0 [facility] Comment on above: Performed By: #### C BCDF ####[address] [address] Lymphocytes (Bld) [#/Vol] 1.74 10*3/uL Normal 1.20 - 4.80 [facility] Comment on above: Performed By: #### C BCDF ####[address] [address] Lymphocytes/100 WBC (Bld) 31.8 % Normal 13.0 - 44.0 [facility] Comment on above: Performed By: #### C BCDF ####[address] [address] MCHC (RBC) [Mass/Vol] 33.4 g/dL Normal 32.0 - 36.0 [facility] Comment on above: Performed By: #### C BCDF ####[address] [address] MCV (RBC) [Entitic vol] 91 fL Normal 80 - 100 [facility] Comment on above: Performed By: #### C BCDF ####[address] [address] Monocytes (Bld) [#/Vol] 0.39 10*3/uL Normal 0.10 - 1.00 [facility] Comment on above: Performed By: #### C BCDF ####[address] [address] Monocytes/100 WBC (Bld) 7.1 % Normal 2.0 - 10.0 [facility] Comment on above: Performed By: #### C BCDF ####[address] [address] Neutrophils (Bld) [#/Vol] 3.16 10*3/uL Normal 1.20 - 7.70 [facility] Comment on above: Result Comment: Perc ent differential counts (%) should be interpreted in the context of the absolute cell counts (cells/L). Performed By: #### C BCDF ####[address] [address] Neutrophils/100 WBC (Bld) 57.8 % Normal 40.0 - 80.0 [facility] Comment on above: Performed By: #### C BCDF ####[address] [address] Platelets (Bld) [#/Vol] 124 10*3/uL Low 150 - 450 [facility] Comment on above: Performed By: #### C BCDF ####[address] [address] RBC 4.81 x10E12/L Normal 4.00 - 5.20 [facility] Comment on above: Performed By: #### C BCDF ####[address] [address] WBC (Bld) [#/Vol] 5.5 10*3/uL Normal 4.4 - 11.3 [facility] Comment on above: Performed By: #### C BCDF ####[address] [address] COMPREHENSIVE PANELon 2022 Albumin [Mass/Vol] 4.3 g/dL Normal 3.4 - 5.0 [facility] Comment on above: Performed By: #### C MP ####[address] [address] ALP [Catalytic activity/Vol] 69 U/L Normal 33 - 110 [facility] Comment on above: Performed By: #### C MP ####[address] [address] ALT [Catalytic activity/Vol] 11 U/L Normal 7 - 45 [facility] Comment on above: Result Comment: Marjan ents treated with Sulfasalazine may generate falsely decreased results for ALT. Performed By: #### C MP ####[address] [address] Anion gap [Moles/Vol] 11 mmol/L Normal 10 - 20 [facility] Comment on above: Performed By: #### C MP ####[address] [address] AST [Catalytic activity/Vol] 15 U/L Normal 9 - 39 [facility] Comment on above: Performed By: #### C MP ####[address] [address] Bilirubin [Mass/Vol] 0.3 mg/dL Normal 0.0 - 1.2 [facility] Comment on above: Performed By: #### C MP ####[address] [address] Calcium [Mass/Vol] 9.2 mg/dL Normal 8.6 - 10.3 [facility] Comment on above: Performed By: #### C MP ####[address] [address] Chloride [Moles/Vol] 103 mmol/L Normal 98 - 107 [facility] Comment on above: Performed By: #### C MP ####[address] [address] Creatinine [Mass/Vol] 1.22 mg/dL High 0.50 - 1.05 [facility] Comment on above: Performed By: #### C MP ####[address] [address] GFR/1.73 sq M.predicted among non-blacks MDRD (S/P/Bld) [Vol rate/Area] 54 mL/min/{1.73_m2} Abnormal >90 [facility] Comment on above: Result Comment: CALC ULATIONS OF ESTIMATED GFR ARE PERFORMED USING THE 2020 CKD-EPI STUDY REFIT EQUATION WITHOUT THE RACE VARIABLE FOR THE IDMS-TRACEABLE CREATININE METHODS.https://jasn.asnjournals.org/content/early/ N.5893637859 Performed By: #### C MP ####[address] [address] Glucose [Mass/Vol] 96 mg/dL Normal 74 - 99 [facility] Comment on above: Performed By: #### C MP ####[address] [address] HCO3 (Bld) [Moles/Vol] 29 mmol/L Normal 21 - 32 [facility] Comment on above: Performed By: #### C MP ####[address] [address] Potassium [Moles/Vol] 4.9 mmol/L Normal 3.5 - 5.3 [facility] Comment on above: Performed By: #### C MP ####[address] [address] Protein [Mass/Vol] 6.1 g/dL Low 6.4 - 8.2 [facility] Comment on above: Performed By: #### C MP ####[address] [address] Sodium [Moles/Vol] 138 mmol/L Normal 136 - 145 [facility] Comment on above: Performed By: #### C MP ####[address] [address] Urea nitrogen [Mass/Vol] 20 mg/dL Normal 6 - 23 [facility] Comment on above: Performed By: #### C MP ####[address] [address] HEMOGLOBIN A1Con 06-02-2023 Glucose [Mass/Vol] 100 mg/dL Normal [facility] Comment on above: Performed By: #### H BA1E ####[address] [address] HbA1c (Bld) [Mass fraction] 5.1 % Normal [facility] Comment on above: Result Comment: Diag nosis of Diabetes-Adults Non-Diabetic: < or = 5.6% Increased risk for developing diabetes: 5.7-6.4% Diagnostic of diabetes: > or = 6.5%. Monitoring of Diabetes Age (y) Therapeutic Goal (%) Adults: >18 <7.0 Pediatrics: 13-18 <7.5 7-12 <8.0 0- 6 7.5-8.5 [employer]. Diabetes Care 33(S1), Oct 2009. Performed By: #### H BA1E ####[address] [address] LIPID PANEL (CORONARY RISK 2 )on 06-02-2023 Cholesterol [Mass/Vol] 201 mg/dL High 0 - 199 [facility] Comment on above: Result Comment: . AG E DESIRABLE BORDERLINE HIGH HIGH 0-19 Y 0 - 169 170 - 199 >/= 200 20-24 Y 0 - 189 190 - 224 >/= 225 >24 Y 0 - 199 200 - 239 >/= 240 All ranges are based on fasting samples. Specific therapeutic targets will vary based on patient-specific cardiac risk.. Pediatric guidelines reference:Pediatrics 2011, 128(S5). Adult guidelines reference: NCEP ATPIII Guidelines, ZEV 2001, 258:2486-97. Venipuncture immediately after or during the administration of Metamizole may lead to falsely low results. Testing should be performed immediately prior to Metamizole dosing. Performed By: #### L IPID ####[address] [address] Cholesterol in HDL [Mass/Vol] 42.0 mg/dL Normal [facility] Comment on above: Result Comment: . AG E VERY LOW LOW NORMAL HIGH 0-19 Y < 35 < 40 40-45 ---- 20-24 Y ---- < 40 >45 ---- >24 Y ---- < 40 40-60 >60. Performed By: #### L IPID ####[address] [address] Cholesterol in LDL [Mass/Vol] 85 mg/dL Normal 0 - 99 [facility] Comment on above: Result Comment: . FILOMENA LEMA AGE DESIRABLE OPTIMAL HIGH HIGH VERY HIGH 0-19 Y 0 - 109 --- 110-129 >/= 130 ---- 20-24 Y 0 - 119 --- 120-159 >/= 160 ---- >24 Y 0 - 99 100-129 130-159 160-189 >/=190. Performed By: #### L IPID ####[address] [address] Cholesterol in VLDL [Mass/Vol] 74 mg/dL High 0 - 40 [facility] Comment on above: Performed By: #### L IPID ####[address] [address] Cholesterol.total/Cho lesterol in HDL [Mass ratio] 4.8 {ratio} Normal [facility] Comment on above: Result Comment: REF VALUESDESIRABLE < 3.4HIGH RISK > 5.0 Performed By: #### L IPID ####[address] [address] NON-HDL CHOLESTEROL 159 mg/dL Normal [facility] Comment on above: Result Comment: AGE DESIRABLE BORDERLINE HIGH HIGH VERY HIGH 0-19 Y 0 - 119 120 - 144 >/= 145 >/= 160 20-24 Y 0 - 149 150 - 189 >/= 190 ---- >24 Y 30 MG/DL ABOVE LDL CHOLESTEROL GOAL. Performed By: #### L IPID ####[address] [address] Triglyceride [Mass/Vol] 370 mg/dL High 0 - 149 [facility] Comment on above: Result Comment: . AG E DESIRABLE BORDERLINE HIGH HIGH VERY HIGH 0 D-90 D 19 - 174 ---- ---- ----91 D- 9 Y 0 - 74 75 - 99 >/= 100 ---- 10-19 Y 0 - 89 90 - 129 >/= 130 ---- 20-24 Y 0 - 114 115 - 149 >/= 150 ---- >24 Y 0 - 149 150 - 199 200- 499 >/= 500. Venipuncture immediately after or during the administration of Metamizole may lead to falsely low results. Testing should be performed immediately prior to Metamizole dosing. Performed By: #### L IPID ####[place] [address] MAGNESIUMon 06-02-2023 Magnesium [Mass/Vol] 1.97 mg/dL Normal 1.60 - 2.40 [facility] Comment on above: Performed By: #### M G ####[place] [address] Lab Specimen Source Normal [facility] Comment on above: Performed By: #### M G ####[place] [address] Performed By: #### T HYDS ####[place] [address] Performed By: #### U VY ####[place] [address] Performed By: #### C MP ####[place] [address] Performed By: #### L IPID ####[place] [address] Performed By: #### C BCDF ####[place] [address] TSH WITH REFLEX TO FREE T4 I F ABNORMALon 06-02-2023 TSH Qn 3.40 m[IU]/L Normal 0.44 - 3.98 [facility] Comment on above: Result Comment: TSH testing is performed using different testing methodology at [facility] than at other [facility]. Direct result comparisons should only be made within the same method. Performed By: #### T HYDS ####[id number] [place] [address] URIC ACIDon 06-02-2023 Urate [Mass/Vol] 3.9 mg/dL Normal 2.3 - 6.7 [facility] Comment on above: Result Comment: Nathalie puncture immediately after or during the administration of Metamizole may lead to falsely low results. Testing should be performed immediately prior to Metamizole dosing. Performed By: #### U VY ####[id number] [place] [address] PT Progress Noteon 3 PT Progress Note Therapy Diagnosis Assessed Knee pain (719.46) (M25.569) Widebased gait (781.2) (R26.89) Fall, subsequent encounter (V58.89,E888.9) (W19.XXXD) Plan Goals: Goals set and discussed today. Activity Limitation: Improved ABC scale score to 15% to demonstrate increased dynamic balance with transfers and ambulation-ongoing, by week 4 Balance: 5xSTS to 12 seconds to demonstrate increased functional strength to decrease fall risk and ease of dynamic stability with transfers-ongoing, by week 4 Pain: 3/10 R knee pain baseline for ease with sleeping and transfers-PARTIALLY MET, by week 4 Range Of Motion/Joint Mobility: Improved R knee AROM 0-120 deg for ease with ambulation and transfers-ongoing, by week 4 Strength: Improved gross B hip, knee, and ankle strength 5/5 MMT for ease with ambulation and transfers to prevent falls-PARTIALLY MET, by week 4 HEP, Patient will demonstrate compliance in their home exercise program in order to promote independence in self management of functional mobility.-MET, by week 2 Planned interventions include: aquatic therapy, education/instruction, home program, manual therapy, neuromuscular re-education, self care/home management, therapeutic activities and therapeutic exercises. Frequency and duration: No further visits planned. Potential to achieve rehab goals is fair: Discharge patient: Progress plateaued. Discharge Plan Related to Patient's Continuing Care: return to physician and . Resources for DME. Assessment Reema Shah is progressing fairly through their POC addressing knee pain and gait deficits. Unfortunately, based on subjective report, continues to have functional mobility deficits with transfers and ambulation as well as continued knee pain. Her B LE musculature strength plateau in progress. Patient reporting difficulty with her RW at home. Provided resources to possibly obtain new prescription for RW from PCP or to follow up with community clinic for DME resources. Patient preferring to remain seated in wheelchair for reassessment. Handout provided. Patient would benefit from further follow up with referring provider in regards to continued knee pain and impairments. Pt to be discharged at this time d/t plateau in progress. Pt verbalized understanding and agreement to goals and POC. Thank you for this referral and please call [phone] with any questions or concerns. Adult Risk Screening There are no spiritual/cultural practices/values/needs that are important to know Initial Fall Risk Screening: REEMA has fallen in the last 6 months. She has fallen due to 3x. Her fall resulted in the following injury: Cut head open. REEMA has a fear of falling. She needs assistance with . Needs assistance walking in her home. She needs assistance in an unfamiliar setting. The patient is using an assistive device. Fall Risk Screening: Patient is identified as a fall risk. Care Plan: High Risk: Low and Moderate risk interventions plus: ensure patient is escorted at all times, do not leave unattended, inform provider of high risk status, discharge by wheelchair or escort assistance, room location, sitter, pre and post sedation/procedure standards, supervised toileting. Please identify location of pain: R knee anterior/posterior. Pain Quality: aching and stabbing. The pain makes it hard for the patient to do these things: walking, sleep and self-care (bathing, dressing, eating). Living Will. Living Will: No living will on file. Healthcare POA: Health care proxy on file. Declaration of Mental Health Treatment: No mental health treatment on file. Depression/Suicide Screening: During the past 2 weeks, the patient felt down, depressed or hopeless. During the past 2 weeks, the patient felt little interest or pleasure in doing things. PHQ-9 performed by PCP last visit 12/15/22 Insurance Insurance reviewed Visit number: 25 Authorization not required after evaluation Insurance: Medicaid (med necessity) Evaluating therapist: Trice Tejada, PT, DPT PT dx: M25.569, R26.89 Med dx: W19.XXXD Precautions:High fall d/t gait abnormalities Onset Date: 2022 Subjective Patient reports:. Patient confirmed name and date of this session. Patient reports that her knee is ongoing with the R knee as she uses it to get into her recliner. She continues to use Biofreeze on the knee. No falls since last visit. Reports that her RW is still too small. Unsure when she sees her PCP. Continues to have knee pain and difficulty with ambulating which patient reports may be because she became dependent on wheelchairs and her RW. Pain with no numeric value in the R knee. Has upcoming appointment with neurologist. Home program performing as directed: Partially. Precautions: seizures. PMHx:. Objective Ortho *Patient preferring to stay in the wheelchair for recheck* MMT knee R- flex: 4/5>5/5>5/5>5/5 ext: 4+/5>5/5>5/5 >5/5 L- flex: 4/5>5/5>5/5>5/5 ext: 4+/5>5/5>5/5>5/5 MMT h (more content not included)... Normal [facility] Therapy Re-eval Noteon 05-28 Therapy Re-eval Note Therapy Diagnosis Assessed 1. Knee pain (719.46) (M25.569) 2. Widebased gait (781.2) (R26.89) 3. Fall, subsequent encounter (V58.89,E888.9) (W19.XXXD) Plan Goals: Goals set and discussed today. Activity Limitation: Improved ABC scale score to 15% to demonstrate increased dynamic balance with transfers and ambulation-ongoing, by week 4 Balance: 5xSTS to 12 seconds to demonstrate increased functional strength to decrease fall risk and ease of dynamic stability with transfers-ongoing, by week 4 Pain: 3/10 R knee pain baseline for ease with sleeping and transfers-PARTIALLY MET, by week 4 Range Of Motion/Joint Mobility: Improved R knee AROM 0-120 deg for ease with ambulation and transfers-ongoing, by week 4 Strength: Improved gross B hip, knee, and ankle strength 5/5 MMT for ease with ambulation and transfers to prevent falls-PARTIALLY MET, by week 4 HEP, Patient will demonstrate compliance in their home exercise program in order to promote independence in self management of functional mobility.-MET, by week 2 Planned interventions include: aquatic therapy, education/instruction, home program, manual therapy, neuromuscular re-education, self care/home management, therapeutic activities and therapeutic exercises. Frequency and duration: No further visits planned. Potential to achieve rehab goals is fair: Discharge patient: Progress plateaued. Discharge Plan Related to Patient's Continuing Care: return to physician and . Resources for DME. Assessment Reema Shah is progressing fairly through their POC addressing knee pain and gait deficits. Unfortunately, based on subjective report, continues to have functional mobility deficits with transfers and ambulation as well as continued knee pain. Her B LE musculature strength plateau in progress. Patient reporting difficulty with her RW at home. Provided resources to possibly obtain new prescription for RW from PCP or to follow up with community clinic for DME resources. Patient preferring to remain seated in wheelchair for reassessment. Handout provided. Patient would benefit from further follow up with referring provider in regards to continued knee pain and impairments. Pt to be discharged at this time d/t plateau in progress. Pt verbalized understanding and agreement to goals and POC. Thank you for this referral and please call [phone] with any questions or concerns. Adult Risk Screening There are no spiritual/cultural practices/values/needs that are important to know Initial Fall Risk Screening: REEMA has fallen in the last 6 months. She has fallen due to 3x. Her fall resulted in the following injury: Cut head open. REEMA has a fear of falling. She needs assistance with . Needs assistance walking in her home. She needs assistance in an unfamiliar setting. The patient is using an assistive device. Fall Risk Screening: Patient is identified as a fall risk. Care Plan: High Risk: Low and Moderate risk interventions plus: ensure patient is escorted at all times, do not leave unattended, inform provider of high risk status, discharge by wheelchair or escort assistance, room location, sitter, pre and post sedation/procedure standards, supervised toileting. Please identify location of pain: R knee anterior/posterior. Pain Quality: aching and stabbing. The pain makes it hard for the patient to do these things: walking, sleep and self-care (bathing, dressing, eating). Living Will. Living Will: No living will on file. Healthcare POA: Health care proxy on file. Declaration of Mental Health Treatment: No mental health treatment on file. Depression/Suicide Screening: During the past 2 weeks, the patient felt down, depressed or hopeless. During the past 2 weeks, the patient felt little interest or pleasure in doing things. PHQ-9 performed by PCP last visit 12/15/22 Insurance Insurance reviewed Visit number: 25 Authorization not required after evaluation Insurance: Medicaid (med necessity) Evaluating therapist: Trice Tejada, PT, DPT PT dx: M25.569, R26.89 Med dx: W19.XXXD Precautions:High fall d/t gait abnormalities Onset Date: 2022 Subjective Patient reports:. Patient confirmed name and date of this session. Patient reports that her knee is ongoing with the R knee as she uses it to get into her recliner. She continues to use Biofreeze on the knee. No falls since last visit. Reports that her RW is still too small. Unsure when she sees her PCP. Continues to have knee pain and difficulty with ambulating which patient reports may be because she became dependent on wheelchairs and her RW. Pain with no numeric value in the R knee. Has upcoming appointment with neurologist. Home program performing as directed: Partially. Precautions: seizures. PMHx:. Objective Ortho *Patient preferring to stay in the wheelchair for recheck* MMT knee R- flex: 4/5>5/5>5/5>5/5 ext: 4+/5>5/5>5/5 >5/5 L- flex: 4/5>5/5>5/5>5/5 ext: 4+/5>5/5>5/5>5/ (more content not included)... Normal [facility] PT Progress Noteon 3 PT Progress Note No report was sent [facility] Therapy Communicationon Therapy Communication Message REEMA MARTHENRY canceled today illness. Signatures Electronically signed by : Pippa Freeman PTA; May 26 2023 8:37AM EST (Author) Normal [facility] PT Progress Noteon 3 PT Progress Note Therapy Diagnosis Assessed Fall, subsequent encounter (V58.89,E888.9) (W19.XXXD) Knee pain (719.46) (M25.569) Widebased gait (781.2) (R26.89) Plan Goals: Goals set and discussed today. Activity Limitation: Improved ABC scale score to 15% to demonstrate increased dynamic balance with transfers and ambulation-ongoing, by week 4 Balance: 5xSTS to 12 seconds to demonstrate increased functional strength to decrease fall risk and ease of dynamic stability with transfers-ongoing, by week 4 Pain: 3/10 R knee pain baseline for ease with sleeping and transfers-PARTIALLY MET, by week 4 Range Of Motion/Joint Mobility: Improved R knee AROM 0-120 deg for ease with ambulation and transfers-ongoing, by week 4 Strength: Improved gross B hip, knee, and ankle strength 5/5 MMT for ease with ambulation and transfers to prevent falls-PARTIALLY MET, by week 4 HEP, Patient will demonstrate compliance in their home exercise program in order to promote independence in self management of functional mobility.-MET, by week 2 Planned interventions include: aquatic therapy, education/instruction, home program, manual therapy, neuromuscular re-education, self care/home management, therapeutic activities and therapeutic exercises. Frequency and duration: 2 time(s) a week, for 4 weeks, for 8 visits. Potential to achieve rehab goals is fair: Continue with LE strength/balance/ambula tion to improve ambulation and ADL. Progress with POC, as tolerated. Assessment Patient tolerated treatment without increased pain. Patient has Fair TrA and keeps intact with ther-ex. Patient needing no assist to ambulate across pool. Patient needing one UE support with LE ther-ex and with 100% unloading. Patient had full body tremors x 2 in pool. Added pressure to LE's to decrease tremors. End of treatment , perform WATSU treatment to patient for relaxation. Continue with LE ther=ex to decrease fall risk and improve ambulation/balance. Adult Risk Screening There are no spiritual/cultural practices/values/needs that are important to know Initial Fall Risk Screening: REEMA has fallen in the last 6 months. She has fallen due to 3x. Her fall resulted in the following injury: Cut head open. REEMA has a fear of falling. She needs assistance with . Needs assistance walking in her home. She needs assistance in an unfamiliar setting. The patient is using an assistive device. Fall Risk Screening: Patient is identified as a fall risk. Care Plan: High Risk: Low and Moderate risk interventions plus: ensure patient is escorted at all times, do not leave unattended, inform provider of high risk status, discharge by wheelchair or escort assistance, room location, sitter, pre and post sedation/procedure standards, supervised toileting. Please identify location of pain: R knee anterior/posterior. Pain Quality: aching and stabbing. The pain makes it hard for the patient to do these things: walking, sleep and self-care (bathing, dressing, eating). Living Will. Living Will: No living will on file. Healthcare POA: Health care proxy on file. Declaration of Mental Health Treatment: No mental health treatment on file. Depression/Suicide Screening: During the past 2 weeks, the patient felt down, depressed or hopeless. During the past 2 weeks, the patient felt little interest or pleasure in doing things. PHQ-9 performed by PCP last visit 12/15/22 Insurance Insurance reviewed Visit number: 25 Authorization not required after evaluation Insurance: Medicaid (med necessity) Evaluating therapist: Trice Tejada, PT, DPT PT dx: M25.569, R26.89 Med dx: W19.XXXD Precautions:High fall d/t gait abnormalities Onset Date: 2022 Subjective Patient reports:. Patient reports no falls and states pain of 3/10 cervical region. Post aquatics states no pain in cervical. Precautions: seizures. PMHx:. Treatment Time in clinic started at 10:45 am Time in clinic ended at 11:30 am Total time in clinic is 45 minutes. Total timed code time is 40 minutes. Therapeutic Activity (84889):. HEP and POC review Education on RW height and safety with transfers Ambulation throughout clinic with CGA and w/c follow. Aquatic Therapy (40212): timed minutes 40, units 3 . Patient enter/exits poll with pool chair Patient needing one noodle to ambulate across pool 3 laps Standing heel raises x 15 Standing squats x 15 Standing hip abd/add x 15 Alt. march Steps x 15 Step Ups x 15 N Patient needing to lean against [pool wall for UE Paddles UE PADDLES x 20 ea. L2 Flex/ext, abd/add, push/pull, H. abd/add 100% UNLOADING 1 noodle Bike 5' Hip Abd/add 5' Hang 5' Free floating for body relaxation. WATSU. 'Scores and Scales' Signatures Electronically signed by : Pippa Freeman IDENTIFICATION AND RECORDS COMMANDER; May 21 2023 11:28AM EST (Author) Electronically signed by : Trice Tejada, PT; May 31 2023 12:59PM EST Normal [facility] PT Progress Noteon 3 PT Progress Note Therapy Diagnosis Assessed Widebased gait (781.2) (R26.89) Knee pain (719.46) (M25.569) Fall, subsequent encounter (V58.89,E888.9) (W19.XXXD) Plan Goals: Goals set and discussed today. Activity Limitation: Improved ABC scale score to 15% to demonstrate increased dynamic balance with transfers and ambulation-ongoing, by week 4 Balance: 5xSTS to 12 seconds to demonstrate increased functional strength to decrease fall risk and ease of dynamic stability with transfers-ongoing, by week 4 Pain: 3/10 R knee pain baseline for ease with sleeping and transfers-PARTIALLY MET, by week 4 Range Of Motion/Joint Mobility: Improved R knee AROM 0-120 deg for ease with ambulation and transfers-ongoing, by week 4 Strength: Improved gross B hip, knee, and ankle strength 5/5 MMT for ease with ambulation and transfers to prevent falls-PARTIALLY MET, by week 4 HEP, Patient will demonstrate compliance in their home exercise program in order to promote independence in self management of functional mobility.-MET, by week 2 Planned interventions include: aquatic therapy, education/instruction, home program, manual therapy, neuromuscular re-education, self care/home management, therapeutic activities and therapeutic exercises. Frequency and duration: 2 time(s) a week, for 4 weeks, for 8 visits. Potential to achieve rehab goals is fair: Continue with over all strength to improve ambulation and balance. Progress with POC, as tolerated. Assessment Patient tolerated treatment without increased pain. Patient has Fair TrA and keeps intact with ther-ex. Patient enter/exits pool using steps with one HR, SBA. Patient has good form/understanding with ther-ex and keeps body in good alignment. Patient able to ambulate across pool without noodle or ENTERPRISE INTEGRATION DEVELOPER. At end of treatment , perform WATSU as relaxation. Continue with over all strength, ambulation, balance to decrease fall risk and improve ambulation. Adult Risk Screening There are no spiritual/cultural practices/values/needs that are important to know Initial Fall Risk Screening: REEMA has fallen in the last 6 months. She has fallen due to 3x. Her fall resulted in the following injury: Cut head open. REEMA has a fear of falling. She needs assistance with . Needs assistance walking in her home. She needs assistance in an unfamiliar setting. The patient is using an assistive device. Fall Risk Screening: Patient is identified as a fall risk. Care Plan: High Risk: Low and Moderate risk interventions plus: ensure patient is escorted at all times, do not leave unattended, inform provider of high risk status, discharge by wheelchair or escort assistance, room location, sitter, pre and post sedation/procedure standards, supervised toileting. Please identify location of pain: R knee anterior/posterior. Pain Quality: aching and stabbing. The pain makes it hard for the patient to do these things: walking, sleep and self-care (bathing, dressing, eating). Living Will. Living Will: No living will on file. Healthcare POA: Health care proxy on file. Declaration of Mental Health Treatment: No mental health treatment on file. Depression/Suicide Screening: During the past 2 weeks, the patient felt down, depressed or hopeless. During the past 2 weeks, the patient felt little interest or pleasure in doing things. PHQ-9 performed by PCP last visit 12/15/22 Insurance Insurance reviewed Visit number: 24 Authorization not required after evaluation Insurance: Medicaid (med necessity) Evaluating therapist: Trice Tejada, PT, DPT PT dx: M25.569, R26.89 Med dx: W19.XXXD Precautions:High fall d/t gait abnormalities Onset Date: 2022 Subjective Patient reports:. Patient reports no falls and states pain of 2/10 low back pain. post aquatics states 0/10 pain. Precautions: seizures. PMHx:. Treatment Time in clinic started at 11:30 am Time in clinic ended at 12:15 pm Total time in clinic is 45 minutes. Total timed code time is 40 minutes. Therapeutic Activity (99716):. HEP and POC review Education on RW height and safety with transfers Ambulation throughout clinic with CGA and w/c follow. Aquatic Therapy (21689): timed minutes 40, units 3 . Patient enter/exits poll with pool chair Patient needing one noodle to ambulate across pool 3 laps Standing heel raises x 15 Standing squats x 15 Standing hip abd/add x 15 Alt. december Steps x 15 Step Ups x 15 N Patient needing to lean against [pool wall for UE Paddles UE PADDLES x 20 ea. L2 Flex/ext, abd/add, push/pull, H. abd/add 100% UNLOADING 1 noodle Bike 5' Hip Abd/add 5' Hang 5' Free floating for body relaxation. WATSU. 'Scores and Scales' Signatures Electronically signed by : Pippa Freeman, IDENTIFICATION AND RECORDS COMMANDER; May 19 2023 12:15PM EST (Author) Electronically signed by : Trice Tejada, PT; May 31 2023 12:59PM EST Normal [facility] PT Progress Noteon 3 PT Progress Note Therapy Diagnosis Assessed Fall, subsequent encounter (V58.89,E888.9) (W19.XXXD) Knee pain (719.46) (M25.569) Widebased gait (781.2) (R26.89) Plan Goals: Goals set and discussed today. Activity Limitation: Improved ABC scale score to 15% to demonstrate increased dynamic balance with transfers and ambulation-ongoing, by week 4 Balance: 5xSTS to 12 seconds to demonstrate increased functional strength to decrease fall risk and ease of dynamic stability with transfers-ongoing, by week 4 Pain: 3/10 R knee pain baseline for ease with sleeping and transfers-PARTIALLY MET, by week 4 Range Of Motion/Joint Mobility: Improved R knee AROM 0-120 deg for ease with ambulation and transfers-ongoing, by week 4 Strength: Improved gross B hip, knee, and ankle strength 5/5 MMT for ease with ambulation and transfers to prevent falls-PARTIALLY MET, by week 4 HEP, Patient will demonstrate compliance in their home exercise program in order to promote independence in self management of functional mobility.-MET, by week 2 Planned interventions include: aquatic therapy, education/instruction, home program, manual therapy, neuromuscular re-education, self care/home management, therapeutic activities and therapeutic exercises. Frequency and duration: 2 time(s) a week, for 4 weeks, for 8 visits. Potential to achieve rehab goals is fair: Continue with LE strength/balance to improve ambulation, balance, ADL. Progress with POC, as tolerated. Assessment Patient tolerated treatment without increased pain. Patient has Fair TrA and keeps intact with ther-ex. Patient needing one ENTERPRISE INTEGRATION DEVELOPER to ambulate across pool. Patient needing UE support with LE ther-ex and with 100% unloading. Performed WATSU at end of treatment for total relaxation. Continue with balance/LE strength to improve ambulation and balance to decrease fall risk. Adult Risk Screening There are no spiritual/cultural practices/values/needs that are important to know Initial Fall Risk Screening: REEMA has fallen in the last 6 months. She has fallen due to 3x. Her fall resulted in the following injury: Cut head open. REEMA has a fear of falling. She needs assistance with . Needs assistance walking in her home. She needs assistance in an unfamiliar setting. The patient is using an assistive device. Fall Risk Screening: Patient is identified as a fall risk. Care Plan: High Risk: Low and Moderate risk interventions plus: ensure patient is escorted at all times, do not leave unattended, inform provider of high risk status, discharge by wheelchair or escort assistance, room location, sitter, pre and post sedation/procedure standards, supervised toileting. Please identify location of pain: R knee anterior/posterior. Pain Quality: aching and stabbing. The pain makes it hard for the patient to do these things: walking, sleep and self-care (bathing, dressing, eating). Living Will. Living Will: No living will on file. Healthcare POA: Health care proxy on file. Declaration of Mental Health Treatment: No mental health treatment on file. Depression/Suicide Screening: During the past 2 weeks, the patient felt down, depressed or hopeless. During the past 2 weeks, the patient felt little interest or pleasure in doing things. PHQ-9 performed by PCP last visit 12/15/22 Insurance Insurance reviewed Visit number: 23 Authorization not required after evaluation Insurance: Medicaid (med necessity) Evaluating therapist: Trice Tejada, PT, DPT PT dx: M25.569, R26.89 Med dx: W19.XXXD Precautions:High fall d/t gait abnormalities Onset Date: 2022 Subjective Patient reports:. Patient reports no falls and states pain of 5/10 low back and reports a headache. Post aquatics states 0/10 low back pain but states still has headache. Precautions: seizures. PMHx:. Treatment Time in clinic started at 8:30 am Time in clinic ended at 9:15 am Total time in clinic is 45 minutes. Total timed code time is 41 minutes. Therapeutic Activity (08435):. HEP and POC review Education on RW height and safety with transfers Ambulation throughout clinic with CGA and w/c follow. Aquatic Therapy (72883): timed minutes 41, units 3 . Patient enter/exits poll with pool chair Patient needing one noodle to ambulate across pool 3 laps Standing heel raises x 15 Standing squats x 15 Standing hip abd/add x 15 Alt. december Steps x 15 Step Ups x 15 N Patient needing to lean against [pool wall for UE Paddles UE PADDLES x 20 ea. L2 Flex/ext, abd/add, push/pull, H. abd/add 100% UNLOADING 1 noodle Bike 5' Hip Abd/add 5' Hang 5' Free floating for body relaxation. WATSU. 'Scores and Scales' Signatures Electronically signed by : Pippa Freeman IDENTIFICATION AND RECORDS COMMANDER; May 14 2023 9:13AM EST (Author) Electronically signed by : Trice Tejada, PT; May 17 2023 10:13PM EST Normal [facility] Therapy Communicationon 07- Therapy Communication Message REEMA SHAH canceled today . Patient canceled secondary to illness. JW. Signatures Electronically signed by : Salma Gamboa PTA; May 11 2023 2:31PM EST (Author) Normal [facility] PT Progress Noteon 3 PT Progress Note Therapy Diagnosis Assessed Fall, subsequent encounter (V58.89,E888.9) (W19.XXXD) Knee pain (719.46) (M25.569) Widebased gait (781.2) (R26.89) Plan Goals: Goals set and discussed today. Activity Limitation: Improved ABC scale score to 15% to demonstrate increased dynamic balance with transfers and ambulation-ongoing, by week 4 Balance: 5xSTS to 12 seconds to demonstrate increased functional strength to decrease fall risk and ease of dynamic stability with transfers-ongoing, by week 4 Pain: 3/10 R knee pain baseline for ease with sleeping and transfers-PARTIALLY MET, by week 4 Range Of Motion/Joint Mobility: Improved R knee AROM 0-120 deg for ease with ambulation and transfers-ongoing, by week 4 Strength: Improved gross B hip, knee, and ankle strength 5/5 MMT for ease with ambulation and transfers to prevent falls-PARTIALLY MET, by week 4 HEP, Patient will demonstrate compliance in their home exercise program in order to promote independence in self management of functional mobility.-MET, by week 2 Planned interventions include: aquatic therapy, education/instruction, home program, manual therapy, neuromuscular re-education, self care/home management, therapeutic activities and therapeutic exercises. Frequency and duration: 2 time(s) a week, for 4 weeks, for 8 visits. Potential to achieve rehab goals is fair: Continue with gait/balance to decrease fall risk and improve ambulation. Progress with POC, as tolerated. Assessment Patient tolerated treatment without increased pain. Patient has Fair TrA and keeps intact with ther-ex. Patient has good form/understanding with ther-ex and keeps body in good alignment. Added step ups to program with tolerance. Pa melissa needing one UE support with LE ther-ex and with 100% unloading. Performed WATSU and end of treatment. Continue with LE strength/balance to improve gait/balance to decrease fall risk. Adult Risk Screening There are no spiritual/cultural practices/values/needs that are important to know Initial Fall Risk Screening: REEMA has fallen in the last 6 months. She has fallen due to 3x. Her fall resulted in the following injury: Cut head open. REEMA has a fear of falling. She needs assistance with . Needs assistance walking in her home. She needs assistance in an unfamiliar setting. The patient is using an assistive device. Fall Risk Screening: Patient is identified as a fall risk. Care Plan: High Risk: Low and Moderate risk interventions plus: ensure patient is escorted at all times, do not leave unattended, inform provider of high risk status, discharge by wheelchair or escort assistance, room location, sitter, pre and post sedation/procedure standards, supervised toileting. Please identify location of pain: R knee anterior/posterior. Pain Quality: aching and stabbing. The pain makes it hard for the patient to do these things: walking, sleep and self-care (bathing, dressing, eating). Living Will. Living Will: No living will on file. Healthcare POA: Health care proxy on file. Declaration of Mental Health Treatment: No mental health treatment on file. Depression/Suicide Screening: During the past 2 weeks, the patient felt down, depressed or hopeless. During the past 2 weeks, the patient felt little interest or pleasure in doing things. PHQ-9 performed by PCP last visit 12/15/22 Insurance Insurance reviewed Visit number: 22 Authorization not required after evaluation Insurance: Medicaid (med necessity) Evaluating therapist: Trice Tejada, PT, DPT PT dx: M25.569, R26.89 Med dx: W19.XXXD Precautions:High fall d/t gait abnormalities Onset Date: 2022 Subjective Patient reports:. Patient reports no falls and states pain of 2/10 left moss region. Post aquatics states 0/10 pain left moss region. Precautions: seizures. PMHx:. Treatment Time in clinic started at 10:00 am Time in clinic ended at 10:45 am Total time in clinic is 45 minutes. Total timed code time is 40 minutes. Therapeutic Activity (43174):. HEP and POC review Education on RW height and safety with transfers Ambulation throughout clinic with CGA and w/c follow. Aquatic Therapy (21188): timed minutes 40, units 3 . Patient enter/exits poll with pool chair Patient needing one noodle to ambulate across pool 3 laps Standing heel raises x 15 Standing squats x 15 Standing hip abd/add x 15 Alt. december Steps x 15 Step Ups x 15 N Patient needing to lean against [pool wall for UE Paddles UE PADDLES x 20 ea. L2 Flex/ext, abd/add, push/pull, H. abd/add 100% UNLOADING 1 noodle Bike 5' Hip Abd/add 5' Hang 5' Free floating for body relaxation. WATSU. 'Scores and Scales' Signatures Electronically signed by : Pippa Freeman PTA; May 07 2023 10:44AM EST (Author) Electronically signed by : Trice Tejada PT; May 17 2023 10:12PM EST [facility] PT Progress Noteon 3 PT Progress Note No report was sent Normal [facility] Therapy Communicationon 04-17 Therapy Communication Message REEMA SHAH canceled today schedule conflict. Signatures Electronically signed by : Pippa Freeman PTA; May 05 2023 11:32AM EST (Author) Normal [facility] LMPon 04-30-2023 Last menstrual period start date IUD [facility] [address] Work Phone: PROJECTS MANAGER - Office Visiton 04-17 PROJECTS MANAGER - Office Visit Provider Kelsey white Patient with chronic pelvic pain. Work-up so far is unremarkable. Patient wishes to have IUD removed. IUD was removed without difficulty. Discussed with the patient the next step further work-up would be to proceed with a laparoscopy. Patient will think about it and if her pain does not improve after the IUD removal we will contact us again to consider that option Chief Complaint Patient is here today for ultrasound results. She has no concerns. History of Present IllnessReema is a 47-year-old woman who comes in to discuss the results of her work-up done for chronic pelvic pain that has been going on for now for approximately 4 months. Patient also reports that she was supposed to have the IUD removed in September 2022. Patient reports that she was told that she may have endometriosis. To the best of the patient's recollection the IUD was put in to help with endometriosis Active Problems Problems Abdominal pain, acute (789.00,338.19) (R10.9) Abdominal pain, acute, right upper quadrant (789.01,338.19) (R10.11) Anxiety (300.00) (F41.9) Back pain (724.5) (M54.9) Bacterial vaginosis (616.10,041.9) (N76.0,B96.89) Body mass index (BMI) of 38.0 to 38.9 in adult (V85.38) (Z68.38) Chronic low back pain (724.2,338.29) (M54.50,G89.29) Colon cancer screening (V76.51) (Z12.11) Compression fracture of T5 vertebra (805.2) (S22.050A) Constipation (564.00) (K59.00) Decreased coordination (781.3) (R27.8) Depression, major, single episode, severe (296.23) (F32.2) Dizziness (780.4) (R42) Encounter for routine checking of intrauterine contraceptive device (IUD) (V25.42) (Z30.431) Excess ear wax (380.4) (H61.20) Fall, subsequent encounter (V58.89,E888.9) (W19.XXXD) Falls (E888.9) (W19.XXXA) Fatty liver (571.8) (K76.0) Generalized epilepsy (345.90) (G40.309) GERD (gastroesophageal reflux disease) (530.81) (K21.9) History of acute renal failure (V13.09) (Z87.448) Hypercholesterolemia (272.0) (E78.00) Hyperglycemia (790.29) (R73.9) Hypertension (401.9) (I10) Hypokalemia (276.8) (E87.6) Hypomagnesemia (275.2) (E83.42) Knee pain (719.46) (M25.569) Leg swelling (729.81) (M79.89) Medication management (V58.69) (Z79.899) Migraines (346.90) (G43.909) Morbid obesity (278.01) (E66.01) Morbid obesity with BMI of 40.0-44.9, adult (278.01,V85.41) (E66.01,Z68.41) Nasal bone fracture (802.0) (S02.2XXA) Neck pain (723.1) (M54.2) Osteopenia (733.90) (M85.80) Otalgia of both ears (388.70) (H92.03) Otitis media, right (382.9) (H66.91) Pain of left lower extremity (729.5) (M79.605) Palpitation (785.1) (R00.2) Pelvic pain in female (625.9) (R10.2) Scalp hematoma (920) (S00.03XA) Screening for breast cancer (V76.10) (Z12.39) Screening for cervical cancer (V76.2) (Z12.4) Screening for cervical cancer (V76.2) (Z12.4) Seizure (780.39) (R56.9) Sinusitis (473.9) (J32.9) Stage 3b chronic kidney disease (585.3) (N18.32) Status post fall (V15.88) (Z91.81) Thrombocytopenia (287.5) (D69.6) Tinea (110.9) (B35.9) Tinea corporis (110.5) (B35.4) Tremor (781.0) (R25.1) URI (upper respiratory infection) (465.9) (J06.9) Vaginal discharge (623.5) (N89.8) Widebased gait (781.2) (R26.89) Women's annual routine gynecological examination (V72.31) (Z01.419) Past Medical History Problems H/O mammogram (V15.89) (Z92.89) 03/06/2022; BENIGN 02/21/2021- benign History of Hepatic Failure (570) Based on patient's description. Now resolved. History of anemia (V12.3) (Z86.2) now resolved History of blood transfusion (V15.89) (Z92.89) History of chronic kidney disease (V13.09) (Z87.448) Cr wsa 1.5 on 11/13/2014 History of congestive heart failure (V12.59) (Z86.79) History of hypertension (V12.59) (Z86.79) History of seizure (V13.89) (Z87.898) History of vaginal delivery (V13.29) 09/15/1997; 34 WEEKS; FEMALE; 4LBS 3OZ History of Influenza vaccination declined (V64.06) (Z28.21) History of Menarche (V21.8) History of Pap test, as part of routine gynecological examination (V76.2) (Z01.419) 01/29/2021; COTEST NEG 09/30/17; NIL History of Pelvic pain in female (625.9) (R10.2) Resolved Date: 01 Jul 2021 History of Pelvic pain in female (625.9) (R10.2) Resolved Date: 01 Jul 2021 History of Pelvic pain in female (625.9) (R10.2) Resolved Date: 14 Jul 2021 History of Renal failure (586) (N19) Based on patient's description. Now resolved. Surgical History Problems History of Breast reduction History of Breast Surgery Reduction Procedure History of Intrauterine device placement 09/25/2019: Mirena Family History Mother Family history of cardiac disorder (V17.49) (Z82.49) Family history of diabetes mellitus (V18.0) (Z83.3) Family history of hypertension (V17.49) (Z82.49) Father Family history of hypothyroidism (V18.19) (Z83.49) Family history of Hypothyroidism Family History Family history of Chronic Obstructive Pulmonary Disease Family history of Diabetes M (more content not included)... Normal [facility] PT Progress Noteon 3 PT Progress Note Therapy Diagnosis Assessed Falls (E888.9) (W19.XXXA) Widebased gait (781.2) (R26.89) Knee pain (719.46) (M25.569) Plan Goals: Goals set and discussed today. Activity Limitation: Improved ABC scale score to 15% to demonstrate increased dynamic balance with transfers and ambulation-ongoing, by week 4 Balance: 5xSTS to 12 seconds to demonstrate increased functional strength to decrease fall risk and ease of dynamic stability with transfers-ongoing, by week 4 Pain: 3/10 R knee pain baseline for ease with sleeping and transfers-PARTIALLY MET, by week 4 Range Of Motion/Joint Mobility: Improved R knee AROM 0-120 deg for ease with ambulation and transfers-ongoing, by week 4 Strength: Improved gross B hip, knee, and ankle strength 5/5 MMT for ease with ambulation and transfers to prevent falls-PARTIALLY MET, by week 4 HEP, Patient will demonstrate compliance in their home exercise program in order to promote independence in self management of functional mobility.-MET, by week 2 Planned interventions include: aquatic therapy, education/instruction, home program, manual therapy, neuromuscular re-education, self care/home management, therapeutic activities and therapeutic exercises. Frequency and duration: 2 time(s) a week, for 4 weeks, for 8 visits. Potential to achieve rehab goals is fair: Progress with aquatic therapy to improve balance, B hip/knee musculature strength, and ambulation to reduce risk of falls at home . Progress with POC, as tolerated. Assessment Patient tolerated treatment without increased pain. Patient ambulating up/down steps with one HR and ENTERPRISE INTEGRATION DEVELOPER to enter/exit pool. Patient ambulating across pool with one ENTERPRISE INTEGRATION DEVELOPER. Patient has good form/understanding with ther-ex. Patient has full body tremors at times. Therapist places pressure on patient's shoulder, and tremors dissipate. At end of treatment , perform WATSU for total body relaxation. Continue with ambulation, balance to decrease fall risk and improve ambulation.-AK Reassessment performed after aquatic session with Trice MELGOZA Reema is progressing well through their POC addressing knee pain and deficits in gait. The pt demonstrates and verbalizes improvements in B hip and knee musculature strength with overall improvement in gait/mobility with transfers demonstrating with pool and subjectively. This contributes to greater ease with self care, transfers, and ambulation safety however pt is still experiencing difficulty with pain of knee and mobility deficits especially with present resting tremors. The pt will benefit from continued skilled PT services 2x/week for 4 weeks to address the above stated impairments and functional limitations to maximize participation and ease in household and social related activities. Plan to focus on aquatic therapy d/t decrease in tremors and ease with gait training and therapeutic exercise. Discussed with patient pursuing aquatic therapy at gym but d/t barriers of transportation and coverage, it hinders ability to pursue. Pt verbalized understanding and agreement to goals and POC. Thank you for this referral and please call [phone] with any questions or concerns. -Trice Tejada PT. Adult Risk Screening There are no spiritual/cultural practices/values/needs that are important to know Initial Fall Risk Screening: REEMA has fallen in the last 6 months. She has fallen due to 3x. Her fall resulted in the following injury: Cut head open. REEMA has a fear of falling. She needs assistance with . Needs assistance walking in her home. She needs assistance in an unfamiliar setting. The patient is using an assistive device. Fall Risk Screening: Patient is identified as a fall risk. Care Plan: High Risk: Low and Moderate risk interventions plus: ensure patient is escorted at all times, do not leave unattended, inform provider of high risk status, discharge by wheelchair or escort assistance, room location, sitter, pre and post sedation/procedure standards, supervised toileting. Please identify location of pain: R knee anterior/posterior. Pain Quality: aching and stabbing. The pain makes it hard for the patient to do these things: walking, sleep and self-care (bathing, dressing, eating). Living Will. Living Will: No living will on file. Healthcare POA: Health care proxy on file. Declaration of Mental Health Treatment: No mental health treatment on file. Depression/Suicide Screening: During the past 2 weeks, the patient felt down, depressed or hopeless. During the past 2 weeks, the patient felt little interest or pleasure in doing things. PHQ-9 performed by PCP last visit 12/15/22 Insurance Insurance reviewed Visit number: 20 Authorization not required after evaluation Insurance: Medicaid (med necessity) Evaluating therapist: Trice Tejada, PT, DPT PT dx: M25.569, R26.89 Med dx: W19.XXXD Precautions:High fall d/t gait abnormalities Onset Date: 2022 Subjective Patient reports:. Patient reports no (more content not included)... [facility] Therapy Re-eval Noteon 04-28 Therapy Re-eval Note Therapy Diagnosis Assessed 1. Falls (E888.9) (W19.XXXA) 2. Widebased gait (781.2) (R26.89) 3. Knee pain (719.46) (M25.569) Plan Goals: Goals set and discussed today. Activity Limitation: Improved ABC scale score to 15% to demonstrate increased dynamic balance with transfers and ambulation-ongoing, by week 4 Balance: 5xSTS to 12 seconds to demonstrate increased functional strength to decrease fall risk and ease of dynamic stability with transfers-ongoing, by week 4 Pain: 3/10 R knee pain baseline for ease with sleeping and transfers-PARTIALLY MET, by week 4 Range Of Motion/Joint Mobility: Improved R knee AROM 0-120 deg for ease with ambulation and transfers-ongoing, by week 4 Strength: Improved gross B hip, knee, and ankle strength 5/5 MMT for ease with ambulation and transfers to prevent falls-PARTIALLY MET, by week 4 HEP, Patient will demonstrate compliance in their home exercise program in order to promote independence in self management of functional mobility.-MET, by week 2 Planned interventions include: aquatic therapy, education/instruction, home program, manual therapy, neuromuscular re-education, self care/home management, therapeutic activities and therapeutic exercises. Frequency and duration: 2 time(s) a week, for 4 weeks, for 8 visits. Potential to achieve rehab goals is fair: Progress with aquatic therapy to improve balance, B hip/knee musculature strength, and ambulation to reduce risk of falls at home . Progress with POC, as tolerated. Assessment Patient tolerated treatment without increased pain. Patient ambulating up/down steps with one HR and ENTERPRISE INTEGRATION DEVELOPER to enter/exit pool. Patient ambulating across pool with one ENTERPRISE INTEGRATION DEVELOPER. Patient has good form/understanding with ther-ex. Patient has full body tremors at times. Therapist places pressure on patient's shoulder, and tremors dissipate. At end of treatment , perform WATSU for total body relaxation. Continue with ambulation, balance to decrease fall risk and improve ambulation.-AK Reassessment performed after aquatic session with Trice MELGOZA Reema is progressing well through their POC addressing knee pain and deficits in gait. The pt demonstrates and verbalizes improvements in B hip and knee musculature strength with overall improvement in gait/mobility with transfers demonstrating with pool and subjectively. This contributes to greater ease with self care, transfers, and ambulation safety however pt is still experiencing difficulty with pain of knee and mobility deficits especially with present resting tremors. The pt will benefit from continued skilled PT services 2x/week for 4 weeks to address the above stated impairments and functional limitations to maximize participation and ease in household and social related activities. Plan to focus on aquatic therapy d/t decrease in tremors and ease with gait training and therapeutic exercise. Discussed with patient pursuing aquatic therapy at gym but d/t barriers of transportation and coverage, it hinders ability to pursue. Pt verbalized understanding and agreement to goals and POC. Thank you for this referral and please call [phone] with any questions or concerns. -Trice Tejada PT. Adult Risk Screening There are no spiritual/cultural practices/values/needs that are important to know Initial Fall Risk Screening: REEMA has fallen in the last 6 months. She has fallen due to 3x. Her fall resulted in the following injury: Cut head open. REEMA has a fear of falling. She needs assistance with . Needs assistance walking in her home. She needs assistance in an unfamiliar setting. The patient is using an assistive device. Fall Risk Screening: Patient is identified as a fall risk. Care Plan: High Risk: Low and Moderate risk interventions plus: ensure patient is escorted at all times, do not leave unattended, inform provider of high risk status, discharge by wheelchair or escort assistance, room location, sitter, pre and post sedation/procedure standards, supervised toileting. Please identify location of pain: R knee anterior/posterior. Pain Quality: aching and stabbing. The pain makes it hard for the patient to do these things: walking, sleep and self-care (bathing, dressing, eating). Living Will. Living Will: No living will on file. Healthcare POA: Health care proxy on file. Declaration of Mental Health Treatment: No mental health treatment on file. Depression/Suicide Screening: During the past 2 weeks, the patient felt down, depressed or hopeless. During the past 2 weeks, the patient felt little interest or pleasure in doing things. PHQ-9 performed by PCP last visit 12/15/22 Insurance Insurance reviewed Visit number: 20 Authorization not required after evaluation Insurance: Medicaid (med necessity) Evaluating therapist: Trice Tejada, PT, DPT PT dx: M25.569, R26.89 Med dx: W19.XXXD Precautions:High fall d/t gait abnormalities Onset Date: 2022 Subjective Patient reports:. Patient re (more content not included)... [facility] OT Initial Evalutationon OT Initial Evalutation Therapy Diagnosis Assessed Tremor (781.0) (R25.1) Decreased coordination (781.3) (R27.8) Plan of Care Goals: Goals set and discussed today. STG: REEMA will demonstrate good carryover of HEP for ROM, strengthening and coordination in order to improve functional independence at home/work by 2 weeks. LTG: REEMA to improve R hand coordination by decreasing 9HPT time to under 60 seconds with no drops to improve manipulation of small objects. LTG: REEMA will demonstrate improved functional independence at home by a decreased DASH score to under 50% by 4 weeks.. Motor Function/Control/Tone: Intervention plan include: ADLs, education/instruction , home program , IADLs, neuromuscular re-education , therapeutic activities and therapeutic exercises. Frequency and duration: 1 time(s) a week, for 4 weeks, for 5 visits. Potential to achieve rehab goals is fair: . Plan of care was developed with input and agreement by the patient. Assessment REEMA SHAH was evaluated today for tremors and decreased coordination REEMA would benefit from regular outpatient OT x1 /week for 4 weeks in order to improve AROM/PROM, strengthening, and coordination.REEMA SHAH presents with fair prognosis considering chronicity of onset and reports inconsistency with medications. REEMA SHAH presents with good understanding and teach back of today's education and provides input into goals/POC. Interdisciplinary Team Communication: occupational therapy . Clinical Presentation: evolving with changing characteristics Level of Complexity: low Problems To Be Addressed: decreased ADL performance, decreased IADL performance, decreased rest/sleep, decreased coordination, decreased knowledge of precautions, decreased knowledge of HEP, pain, decreased strength and fall risk. Reason For Visit Initial Evaluation. Reason for Referral: eval and treat. Adult Risk Screening There are spiritual/cultural practices/values/needs that are important to know: Initial Fall Risk Screening: REEMA has fallen in the last 6 months. She has fallen due to LOB. Her fall did not result in injury. REEMA has a fear of falling. She needs assistance with . Needs assistance walking in her home. She needs assistance in an unfamiliar setting. The patient is using an assistive device. Fall Risk Screening: Patient is identified as a fall risk. Care Plan: High Risk: Low and Moderate risk interventions plus: ensure patient is escorted at all times, do not leave unattended, inform provider of high risk status, discharge by wheelchair or escort assistance, room location, sitter, pre and post sedation/procedure standards, supervised toileting. Pain Scale: On a scale of 0 to 10, the patient rates the pain at 0. Please identify location of pain: none at this time. The pain makes it hard for the patient to do these things: self-care (bathing, dressing, eating). Insurance Insurance reviewed Visit number: 1 Medicaid Onset Date: 2022 Subjective Patient reports: Pt presenting to outpatient OT this date with complaints of tremors. 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 Pt reporting she has had tremors in both hands since 1995. Pt reporting when she has her medications for her tremors she has minimal to no tremors. Pt reporting she has hand pain 1x every other week and appears randomly that lasts a few minutes and is about a 2/10. Pt reporting numbness and tingling is about the same frequency. 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 Pt reporting she had home OT last year after asking doctor for home therapy. Pt lives a yamil house, they clean the apartment 1x/ week and complete other IADLs. Pt reports she can get herself into her tub shower, with grab bars and shower chair. pt reporting she receives help with hair, feet, and back. 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 Pt reporting she gets assistance with cutting meat. Pt reporting she completes dressing and grooming with I. Medical Screening: Reviewed medical history form with patient and medical screening assessed. Precautions: none Fall Risk: high Objective Strength: Hands (Huang: P! Denotes Pain with Movement) Hand Dominance: Right Siebel Developer Strength: level III 35 lbs on the right and level III 33 lbs on the left. The huang pinch trials for the right 12 lbs and left 12 lbs. 3 Point Pinch: right 12 lbs and left 12 lbs. Coordination and Manual Dexterity: 9 Hole Peg Test: 66 seconds on right, 58 seconds on the left Treatment Time in clinic started at 1045 am Time in clinic ended at 1130 am Total time in clinic is 45 minutes. Total timed code time is 15 minutes. Treatment Performed Today Pt education provided via HEP for ROM, strength and coordination followed by therapist demonstration and printed materials provided. Education of Maria G SALAS. Treat (more content not included)... [facility] PT Progress Noteon 3 PT Progress Note Therapy Diagnosis Assessed Fall, subsequent encounter (V58.89,E888.9) (W19.XXXD) Widebased gait (781.2) (R26.89) Knee pain (719.46) (M25.569) Plan Goals: Goals set and discussed today. Activity Limitation: Improved ABC scale score to 15% to demonstrate increased dynamic balance with transfers and ambulation-ongoing, by week 4 Balance: 5xSTS to 12 seconds to demonstrate increased functional strength to decrease fall risk and ease of dynamic stability with transfers-ongoing, by week 4 Pain: 3/10 R knee pain baseline for ease with sleeping and transfers-PARTIALLY MET, by week 4 Range Of Motion/Joint Mobility: Improved R knee AROM 0-120 deg for ease with ambulation and transfers-ongoing, by week 4 Strength: Improved gross B hip, knee, and ankle strength 5/5 MMT for ease with ambulation and transfers to prevent falls-PARTIALLY MET, by week 4 HEP, Patient will demonstrate compliance in their home exercise program in order to promote independence in self management of functional mobility.-MET, by week 2 Planned interventions include: aquatic therapy, education/instruction, home program, manual therapy, neuromuscular re-education, self care/home management, therapeutic activities and therapeutic exercises. Frequency and duration: 2 time(s) a week, for 4 weeks, for 8 visits. Potential to achieve rehab goals is fair: Continue with LE strength/ROM to improve ambulation and balance. Progress with POC, as tolerated. Assessment Patient tolerated treatment without pain. Patient able to ambulate up/down steps with one HR and ENTERPRISE INTEGRATION DEVELOPER. Patient has good form/understanding with ther-ex. Patient able to ambulate across pool with one ENTERPRISE INTEGRATION DEVELOPER. Patient tolerates watsu at end of therapy to decrease tremors and improve relaxation. Continue with LE strength/ROM to decrease fall risk and improve ambulation. Adult Risk Screening There are no spiritual/cultural practices/values/needs that are important to know Initial Fall Risk Screening: REEMA has fallen in the last 6 months. She has fallen due to 3x. Her fall resulted in the following injury: Cut head open. REEMA has a fear of falling. She needs assistance with . Needs assistance walking in her home. She needs assistance in an unfamiliar setting. The patient is using an assistive device. Fall Risk Screening: Patient is identified as a fall risk. Care Plan: High Risk: Low and Moderate risk interventions plus: ensure patient is escorted at all times, do not leave unattended, inform provider of high risk status, discharge by wheelchair or escort assistance, room location, sitter, pre and post sedation/procedure standards, supervised toileting. Please identify location of pain: R knee anterior/posterior. Pain Quality: aching and stabbing. The pain makes it hard for the patient to do these things: walking, sleep and self-care (bathing, dressing, eating). Living Will. Living Will: No living will on file. Healthcare POA: Health care proxy on file. Declaration of Mental Health Treatment: No mental health treatment on file. Depression/Suicide Screening: During the past 2 weeks, the patient felt down, depressed or hopeless. During the past 2 weeks, the patient felt little interest or pleasure in doing things. PHQ-9 performed by PCP last visit 12/15/22 Insurance Insurance reviewed Visit number: 19 Authorization not required after evaluation Insurance: Medicaid (med necessity) Evaluating therapist: Trice Tejada, PT, DPT PT dx: M25.569, R26.89 Med dx: W19.XXXD Precautions:High fall d/t gait abnormalities Onset Date: 2022 Subjective Patient reports:. Patient reports no falls and states no pain today. Post aquatics states no pain. Precautions: seizures. PMHx:. Treatment Time in clinic started at 12:15 pm Time in clinic ended at 1:00 pm Total time in clinic is 45 minutes. Total timed code time is 40 minutes. Therapeutic Activity (48529):. HEP and POC review Education on RW height and safety with transfers Ambulation throughout clinic with CGA and w/c follow. Aquatic Therapy (11822): timed minutes 40, units 3 . Patient enter/exits poll with pool chair Patient needing one noodle to ambulate across pool 3 laps Standing heel raises x 15 Standing squats x 15 Standing hip abd/add x 15 Alt. december Steps x 15 Patient needing to lean against [pool wall for UE Paddles UE PADDLES x 20 ea. L2 Flex/ext, abd/add, push/pull, H. abd/add 100% UNLOADING 1 noodle Bike 5' Hip Abd/add 5' Hang 5' Free floating for body relaxation. WATSU. 'Scores and Scales' Signatures Electronically signed by : Pippa Freeman IDENTIFICATION AND RECORDS COMMANDER; Apr 26 2023 1:05PM EST (Author) Electronically signed by : Trice Tejada PT; Apr 26 2023 4:32PM EST (Author) [facility] PT Progress Noteon 3 PT Progress Note Therapy Diagnosis Assessed Widebased gait (781.2) (R26.89) Fall, subsequent encounter (V58.89,E888.9) (W19.XXXD) Knee pain (719.46) (M25.569) Plan Goals: Goals set and discussed today. Activity Limitation: Improved ABC scale score to 15% to demonstrate increased dynamic balance with transfers and ambulation-ongoing, by week 4 Balance: 5xSTS to 12 seconds to demonstrate increased functional strength to decrease fall risk and ease of dynamic stability with transfers-ongoing, by week 4 Pain: 3/10 R knee pain baseline for ease with sleeping and transfers-PARTIALLY MET, by week 4 Range Of Motion/Joint Mobility: Improved R knee AROM 0-120 deg for ease with ambulation and transfers-ongoing, by week 4 Strength: Improved gross B hip, knee, and ankle strength 5/5 MMT for ease with ambulation and transfers to prevent falls-PARTIALLY MET, by week 4 HEP, Patient will demonstrate compliance in their home exercise program in order to promote independence in self management of functional mobility.-MET, by week 2 Planned interventions include: aquatic therapy, education/instruction, home program, manual therapy, neuromuscular re-education, self care/home management, therapeutic activities and therapeutic exercises. Frequency and duration: 2 time(s) a week, for 4 weeks, for 8 visits. Potential to achieve rehab goals is fair: Continue with over all strength/ROM to improve ambulation, balance and ADL. Progress with POC, as tolerated. Assessment Patient tolerated treatment without increased pain. Patient has Fair TrA and keeps intact with ther-ex. Patient ambulating with ENTERPRISE INTEGRATION DEVELOPER from W/C to pool steps. Patient enter/exits pool uses steps with one HR, SBA. Patient ambulates across pool with ENTERPRISE INTEGRATION DEVELOPER. Patient needing one UE support with LE ther-ex and with 100% unloading. At end of treatment Watsu is performed to decrease tremors/relaxation/. Continue with over all strength/ROM to decrease fall risk and improve ambulation. Adult Risk Screening There are no spiritual/cultural practices/values/needs that are important to know Initial Fall Risk Screening: REEMA has fallen in the last 6 months. She has fallen due to 3x. Her fall resulted in the following injury: Cut head open. REEMA has a fear of falling. She needs assistance with . Needs assistance walking in her home. She needs assistance in an unfamiliar setting. The patient is using an assistive device. Fall Risk Screening: Patient is identified as a fall risk. Care Plan: High Risk: Low and Moderate risk interventions plus: ensure patient is escorted at all times, do not leave unattended, inform provider of high risk status, discharge by wheelchair or escort assistance, room location, sitter, pre and post sedation/procedure standards, supervised toileting. Please identify location of pain: R knee anterior/posterior. Pain Quality: aching and stabbing. The pain makes it hard for the patient to do these things: walking, sleep and self-care (bathing, dressing, eating). Living Will. Living Will: No living will on file. Healthcare POA: Health care proxy on file. Declaration of Mental Health Treatment: No mental health treatment on file. Depression/Suicide Screening: During the past 2 weeks, the patient felt down, depressed or hopeless. During the past 2 weeks, the patient felt little interest or pleasure in doing things. PHQ-9 performed by PCP last visit 12/15/22 Insurance Insurance reviewed Visit number: 18 Authorization not required after evaluation Insurance: Medicaid (med necessity) Evaluating therapist: Trice Tejada PT, DPT PT dx: M25.569, R26.89 Med dx: W19.XXXD Precautions:High fall d/t gait abnormalities Onset Date: 2022 Subjective Patient reports:. Patient reports no falls and states pain of 2/10 low back. Post aquatics states no pain. Precautions: seizures. PMHx:. Treatment Time in clinic started at 9:15 am Time in clinic ended at 10:00 am Total time in clinic is 45 minutes. Total timed code time is 41 minutes. Therapeutic Activity (00365):. HEP and POC review Education on RW height and safety with transfers Ambulation throughout clinic with CGA and w/c follow. Aquatic Therapy (05649): timed minutes 41, units 3 . Patient enter/exits poll with pool chair Patient needing one noodle to ambulate across pool 3 laps Standing heel raises x 15 Standing squats x 15 Standing hip abd/add x 15 Alt. december Steps x 15 Patient needing to lean against [pool wall for UE Paddles UE PADDLES x 20 ea. L2 Flex/ext, abd/add, push/pull, H. abd/add 100% UNLOADING 1 noodle Bike 5' Hip Abd/add 5' Hang 5' Free floating for body relaxation. WATSU. 'Scores and Scales' Signatures Electronically signed by : Pippa Freeman PTA; Apr 23 2023 10:01AM EST (Author) Electronically signed by : Trice Tejada, PT; Apr 26 2023 10:28AM EST [facility] No Panel Informationon 04-15 [facility] Work Phone: Please click on the link to view the study images [facility] Work Phone: US PELVISon 04-15-2023 US PELVIS Normal [facility] PELVIS TRANSABDOMINAL WIT H TRANSVAGINALon 04-15-2023 PELVIS TRANSABDOMINAL WITH TRANSVAGINAL Normal [facility] PT Progress Noteon 3 PT Progress Note No report was sent [facility] Therapy Communicationon 03-19 Therapy Communication Message REEMA MARTHENRY canceled today illness. Signatures Electronically signed by : Pippa Freeman PTA; Apr 14 2023 10:04AM EST (Author) [facility] PT Progress Noteon 3 PT Progress Note Therapy Diagnosis Assessed Fall, subsequent encounter (V58.89,E888.9) (W19.XXXD) Knee pain (719.46) (M25.569) Widebased gait (781.2) (R26.89) Plan Goals: Goals set and discussed today. Activity Limitation: Improved ABC scale score to 15% to demonstrate increased dynamic balance with transfers and ambulation-ongoing, by week 4 Balance: 5xSTS to 12 seconds to demonstrate increased functional strength to decrease fall risk and ease of dynamic stability with transfers-ongoing, by week 4 Pain: 3/10 R knee pain baseline for ease with sleeping and transfers-PARTIALLY MET, by week 4 Range Of Motion/Joint Mobility: Improved R knee AROM 0-120 deg for ease with ambulation and transfers-ongoing, by week 4 Strength: Improved gross B hip, knee, and ankle strength 5/5 MMT for ease with ambulation and transfers to prevent falls-PARTIALLY MET, by week 4 HEP, Patient will demonstrate compliance in their home exercise program in order to promote independence in self management of functional mobility.-MET, by week 2 Planned interventions include: aquatic therapy, education/instruction, home program, manual therapy, neuromuscular re-education, self care/home management, therapeutic activities and therapeutic exercises. Frequency and duration: 2 time(s) a week, for 4 weeks, for 8 visits. Potential to achieve rehab goals is fair: Continue with ambulation/balance to improve ambulation and balance for ADL. Progress with POC, as tolerated. Assessment Patient tolerated treatment without increased pain. Patient ambulates with ENTERPRISE INTEGRATION DEVELOPER into pool, up/down steps with hand held assist. Patient has good form/understanding with ther-ex. Needing to lean into pool wall for balance control to perform UE ther-ex. Needing one UE support with LE ther-ex and hand held assist to ambulate across pool with no noodle. Patient has progressed in pool with ambulation/balance control and decreased tremors. Continue with gait/mobility/balance to decrease fall risk and improve ambulation. Adult Risk Screening There are no spiritual/cultural practices/values/needs that are important to know Initial Fall Risk Screening: REEMA has fallen in the last 6 months. She has fallen due to 3x. Her fall resulted in the following injury: Cut head open. REEMA has a fear of falling. She needs assistance with . Needs assistance walking in her home. She needs assistance in an unfamiliar setting. The patient is using an assistive device. Fall Risk Screening: Patient is identified as a fall risk. Care Plan: High Risk: Low and Moderate risk interventions plus: ensure patient is escorted at all times, do not leave unattended, inform provider of high risk status, discharge by wheelchair or escort assistance, room location, sitter, pre and post sedation/procedure standards, supervised toileting. Please identify location of pain: R knee anterior/posterior. Pain Quality: aching and stabbing. The pain makes it hard for the patient to do these things: walking, sleep and self-care (bathing, dressing, eating). Living Will. Living Will: No living will on file. Healthcare POA: Health care proxy on file. Declaration of Mental Health Treatment: No mental health treatment on file. Depression/Suicide Screening: During the past 2 weeks, the patient felt down, depressed or hopeless. During the past 2 weeks, the patient felt little interest or pleasure in doing things. PHQ-9 performed by PCP last visit 12/15/22 Insurance Insurance reviewed Visit number: 17 Authorization not required after evaluation Insurance: Medicaid (med necessity) Evaluating therapist: Trice Tejada, PT, DPT PT dx: M25.569, R26.89 Med dx: W19.XXXD Precautions:High fall d/t gait abnormalities Onset Date: 2022 Subjective Patient reports:. Patient reports no falls and states having sinus headache, states no pain today, just headache. Post aquatics states no pain and decreased headache. Precautions: seizures. PMHx:. Treatment Time in clinic started at 10:00 am Time in clinic ended at 10:45 am Total time in clinic is 45 minutes. Total timed code time is 41 minutes. Therapeutic Activity (76897):. HEP and POC review Education on RW height and safety with transfers Ambulation throughout clinic with CGA and w/c follow. Aquatic Therapy (42298): timed minutes 41, units 3 . Patient enter/exits poll with pool chair Patient needing one noodle to ambulate across pool 3 laps Standing heel raises x 15 Standing squats x 15 Standing hip abd/add x 15 Alt. december Steps x 15 Patient needing to lean against [pool wall for UE Paddles UE PADDLES x 20 ea. L2 Flex/ext, abd/add, push/pull, H. abd/add 100% UNLOADING 1 noodle Bike 5' Hip Abd/add 5' Hang 5' Free floating for body relaxation. WATSU. 'Scores and Scales' Signatures Electronically signed by : Pippa Freeman IDENTIFICATION AND RECORDS COMMANDER; Apr 09 2023 10:47AM EST (Author) Electronically signed by : Trice Tejada PT; Apr 16 2023 1:21PM EST Normal [facility] PT Progress Noteon 3 PT Progress Note Therapy Diagnosis Assessed Fall, subsequent encounter (V58.89,E888.9) (W19.XXXD) Widebased gait (781.2) (R26.89) Knee pain (719.46) (M25.569) Plan Goals: Goals set and discussed today. Activity Limitation: Improved ABC scale score to 15% to demonstrate increased dynamic balance with transfers and ambulation-ongoing, by week 4 Balance: 5xSTS to 12 seconds to demonstrate increased functional strength to decrease fall risk and ease of dynamic stability with transfers-ongoing, by week 4 Pain: 3/10 R knee pain baseline for ease with sleeping and transfers-PARTIALLY MET, by week 4 Range Of Motion/Joint Mobility: Improved R knee AROM 0-120 deg for ease with ambulation and transfers-ongoing, by week 4 Strength: Improved gross B hip, knee, and ankle strength 5/5 MMT for ease with ambulation and transfers to prevent falls-PARTIALLY MET, by week 4 HEP, Patient will demonstrate compliance in their home exercise program in order to promote independence in self management of functional mobility.-MET, by week 2 Planned interventions include: aquatic therapy, education/instruction, home program, manual therapy, neuromuscular re-education, self care/home management, therapeutic activities and therapeutic exercises. Frequency and duration: 2 time(s) a week, for 4 weeks, for 8 visits. Potential to achieve rehab goals is fair: Continue with core strength to improve ambulation, standing, balance. Progress with POC, as tolerated. Assessment Patient tolerated treatment without increased pain. Patient enter/exited pool using pool steps with ENTER[employer]ISE INTEGRATION DEVELOPER. Good tech/safety. Patient needing ENTER[employer]ISE INTEGRATION DEVELOPER to ambulate across pool. Patient using no noodles for balance control. Patient has good form/understanding with ther-ex and keeps body in good alignment. Continue with core stability while performing dyn activity to decrease back pain. . Adult Risk Screening There are no spiritual/cultural practices/values/needs that are important to know Initial Fall Risk Screening: REEMA has fallen in the last 6 months. She has fallen due to 3x. Her fall resulted in the following injury: Cut head open. REEMA has a fear of falling. She needs assistance with . Needs assistance walking in her home. She needs assistance in an unfamiliar setting. The patient is using an assistive device. Fall Risk Screening: Patient is identified as a fall risk. Care Plan: High Risk: Low and Moderate risk interventions plus: ensure patient is escorted at all times, do not leave unattended, inform provider of high risk status, discharge by wheelchair or escort assistance, room location, sitter, pre and post sedation/procedure standards, supervised toileting. Please identify location of pain: R knee anterior/posterior. Pain Quality: aching and stabbing. The pain makes it hard for the patient to do these things: walking, sleep and self-care (bathing, dressing, eating). Living Will. Living Will: No living will on file. Healthcare POA: Health care proxy on file. Declaration of Mental Health Treatment: No mental health treatment on file. Depression/Suicide Screening: During the past 2 weeks, the patient felt down, depressed or hopeless. During the past 2 weeks, the patient felt little interest or pleasure in doing things. PHQ-9 performed by PCP last visit 12/15/22 Insurance Insurance reviewed Visit number: 16 Authorization not required after evaluation Insurance: Medicaid (med necessity) Evaluating therapist: Trice Tejada PT, DPT PT dx: M25.569, R26.89 Med dx: W19.XXXD Precautions:High fall d/t gait abnormalities Onset Date: 2022 Subjective Patient reports:. Patient reports no falls and states pain of 5/10 in low back region. Post aquatics states 2/10 low back pain. Precautions: seizures. PMHx:. Treatment Time in clinic started at 10:00 am Time in clinic ended at 10:45 am Total time in clinic is 45 minutes. Total timed code time is 40 minutes. Therapeutic Activity (89024):. HEP and POC review Education on RW height and safety with transfers Ambulation throughout clinic with CGA and w/c follow. Aquatic Therapy (49568): timed minutes 40, units 3 . Patient enter/exits poll with pool chair Patient needing one noodle to ambulate across pool 3 laps Standing heel raises x 15 Standing squats x 15 Standing hip abd/add x 15 Alt. december Steps x 15 Patient needing to lean against [pool wall for UE Paddles UE PADDLES x 20 ea. L2 Flex/ext, abd/add, push/pull, H. abd/add 100% UNLOADING 1 noodle Bike 5' Hip Abd/add 5' Hang 5' Free floating for body relaxation. WATSU. 'Scores and Scales' Signatures Electronically signed by : Pippa Freeman PTA; Apr 07 2023 10:47AM EST (Author) Electronically signed by : Trice Tejada PT; Apr 16 2023 1:20PM EST Normal [facility] Cult, Urineon 04-06-2023 Bacteria identified Cx Nom (U) [facility] and [address] [employer] Work Phone: URINE CULTURE,BACTERIALon URINE CULTURE,BACTERIAL [facility] PATIENT: REEMA SHAH LOCATION: [facility] BILL#: [id number] : 71 AGE: SEX: F ORDERED BY: MATTHEW PÉREZ SOURCE: URINE COLLECTED: 04/06/23 07:00 ANTIBIOTICS AT KAREN.: RECEIVED : 04/06/23 12:08 SITE: Clean Catch/Voided R E S U L T S URINE CULTURE,BACTERIAL FINAL 04/07/23 08:07 NO SIGNIFICANT GROWTH. Normal [facility] Comment on above: Performed By: #### P TH #### [facility] [address] [place], [place] Cult, Genitalon 04-05-2023 Bacteria identified Aer cx Nom (Genital specimen) [employer] and [address] [employer] Work Phone: GENITAL CULTURE, BACT.on GENITAL CULTURE, BACT. PATIENT: REEMA SHAH LOCATION: [id number] BILL#: [id number] : 71 AGE: SEX: F ORDERED BY: MATTHEW PÉREZ SOURCE: GENITAL COLLECTED: 04/05/23 14:09 ANTIBIOTICS AT KAREN.: RECEIVED : 04/06/23 12:57 SITE: Vaginal R E S U L T S GENITAL CULTURE, BACT. FINAL 04/09/23 14:45 NO PATHOGENS Culture examined for Group A Streptococcus, Group B Streptococcus, Neisseria gonorrhoeae and Yeast ONLY. Normal [facility] Comment on above: Performed By: #### G ENLO #### [facility] [address] [place] [address] LMPon 04-05-2023 Last menstrual period start date IUD [facility] and [address] [employer] Work Phone: PROJECTS MANAGER - Office Visiton 03-18 PROJECTS MANAGER - Office Visit Diagnoses/Problems Assessed Pelvic pain in female (625.9) (R10.2) Orders Cult, Genital; Status:In Progress - Specimen/Data Collected,Retrospective Authorization; Done: 05Apr2023 Site : Vaginal Cult, Urine; Status:Active; Requested for:05Apr2023; Ultrasound Pelvis Transabdominal With Transvaginal; Status:Hold For - Scheduling; Requested for:05Apr2023; Radiologist to Determine Optimal Study : Y What are the patient's signs and symptoms? : pelvic pain Provider Impressions Reema is a 47-year-old who comes in with concerns of pelvic pain and some spotting with an IUD present. IUD appears to be in the appropriate place. We will do an ultrasound and cultures as well as urine cultures were ordered. Blood count apparently looks good. We will see patient back in 2 weeks to discuss treatment options. Patient has not had a laparoscopy or any definitive diagnosis of endometriosis at this point. Patient also overdue for an annual Chief Complaint Patient here today with concerns of pelvic pain and internal vaginal pain. She states that her IUD was due to come out in September and since then she has had pain and random spotting. LMP: IUD History of Present IllnessReema is a 47-year-old who reports a history of recurrent pelvic pain that started about 4 5 months ago. The patient believes that she was due to have her Mirena IUD removed in September 2022. She reports that it has been in for 5 years. She also reports that she has periodic episodes of spotting when voiding and happens very infrequently every 3 to 4 months. Patient currently is not sexually active denies any UTI symptoms denies any abnormal discharge. Patient reports when the pain comes it doubles her over and she does get some relief with Tylenol. She reports that she cannot take ibuprofen. Patient reports that twice previously she had been being prepared for hysterectomy the first time was approximately 20 years ago but at that point was found to be extremely anemic and her surgery was canceled. She reports that subsequently her and Dr. Velasquez had talked about pursuing surgery for possible fibroids and endometriosis but that was not further pursued for unclear reasons. Active Problems Problems Abdominal pain, acute (789.00,338.19) (R10.9) Abdominal pain, acute, right upper quadrant (789.01,338.19) (R10.11) Anxiety (300.00) (F41.9) Back pain (724.5) (M54.9) Bacterial vaginosis (616.10,041.9) (N76.0,B96.89) Body mass index (BMI) of 38.0 to 38.9 in adult (V85.38) (Z68.38) Chronic low back pain (724.2,338.29) (M54.50,G89.29) Colon cancer screening (V76.51) (Z12.11) Compression fracture of T5 vertebra (805.2) (S22.050A) Constipation (564.00) (K59.00) Depression, major, single episode, severe (296.23) (F32.2) Dizziness (780.4) (R42) Encounter for routine checking of intrauterine contraceptive device (IUD) (V25.42) (Z30.431) Excess ear wax (380.4) (H61.20) Fall, subsequent encounter (V58.89,E888.9) (W19.XXXD) Falls (E888.9) (W19.XXXA) Fatty liver (571.8) (K76.0) Generalized epilepsy (345.90) (G40.309) GERD (gastroesophageal reflux disease) (530.81) (K21.9) History of acute renal failure (V13.09) (Z87.448) Hypercholesterolemia (272.0) (E78.00) Hyperglycemia (790.29) (R73.9) Hypertension (401.9) (I10) Hypokalemia (276.8) (E87.6) Hypomagnesemia (275.2) (E83.42) Knee pain (719.46) (M25.569) Leg swelling (729.81) (M79.89) Medication management (V58.69) (Z79.899) Migraines (346.90) (G43.909) Morbid obesity (278.01) (E66.01) Morbid obesity with BMI of 40.0-44.9, adult (278.01,V85.41) (E66.01,Z68.41) Nasal bone fracture (802.0) (S02.2XXA) Neck pain (723.1) (M54.2) Osteopenia (733.90) (M85.80) Otalgia of both ears (388.70) (H92.03) Otitis media, right (382.9) (H66.91) Pain of left lower extremity (729.5) (M79.605) Palpitation (785.1) (R00.2) Pelvic pain in female (625.9) (R10.2) Scalp hematoma (920) (S00.03XA) Screening for breast cancer (V76.10) (Z12.39) Screening for cervical cancer (V76.2) (Z12.4) Screening for cervical cancer (V76.2) (Z12.4) Seizure (780.39) (R56.9) Sinusitis (473.9) (J32.9) Stage 3b chronic kidney disease (585.3) (N18.32) Status post fall (V15.88) (Z91.81) Thrombocytopenia (287.5) (D69.6) Tinea (110.9) (B35.9) Tinea corporis (110.5) (B35.4) Tremor (781.0) (R25.1) URI (upper respiratory infection) (465.9) (J06.9) Vaginal discharge (623.5) (N89.8) Widebased gait (781.2) (R26.89) Women's annual routine gynecological examination (V72.31) (Z01.419) Past Medical History Problems H/O mammogram (V15.89) (Z92.89) 03/06/2022; BENIGN 02/21/2021- benign History of Hepatic Failure (570) Based on patient's description. Now resolved. History of anemia (V12.3) (Z86.2) now resolved History of blood transfusion (V15.89) (Z92.89) History of chronic kidney disease (V13.09) (Z87.448) Cr wsa 1.5 on 11/13/2014 History of congestive heart failure (V12.59) (Z86.79) History of hypertension (V12.59) (Z8 (more content not included)... Normal [facility] PT Progress Noteon 3 PT Progress Note Therapy Diagnosis Assessed Knee pain (719.46) (M25.569) Widebased gait (781.2) (R26.89) Fall, subsequent encounter (V58.89,E888.9) (W19.XXXD) Plan Goals: Goals set and discussed today. Activity Limitation: Improved ABC scale score to 15% to demonstrate increased dynamic balance with transfers and ambulation-ongoing, by week 4 Balance: 5xSTS to 12 seconds to demonstrate increased functional strength to decrease fall risk and ease of dynamic stability with transfers-ongoing, by week 4 Pain: 3/10 R knee pain baseline for ease with sleeping and transfers-PARTIALLY MET, by week 4 Range Of Motion/Joint Mobility: Improved R knee AROM 0-120 deg for ease with ambulation and transfers-ongoing, by week 4 Strength: Improved gross B hip, knee, and ankle strength 5/5 MMT for ease with ambulation and transfers to prevent falls-PARTIALLY MET, by week 4 HEP, Patient will demonstrate compliance in their home exercise program in order to promote independence in self management of functional mobility.-MET, by week 2 Planned interventions include: aquatic therapy, education/instruction, home program, manual therapy, neuromuscular re-education, self care/home management, therapeutic activities and therapeutic exercises. Frequency and duration: 2 time(s) a week, for 4 weeks, for 8 visits. Potential to achieve rehab goals is fair: Continue with balance/gait to decrease fall risk and improve ADL. Progress with POC, as tolerated. Assessment Patient tolerated treatment without pain. Patient enter/exits pool using pool chair. Patient needing one noodle to ambulate across pool, SBA. Patient has good form/understanding with ther-ex and keeps body in good alignment. Patient needing one UE support with LE ther-ex and with 100% unloading. At end of treatment, performs WATSU for relaxation. Continue with LE strength to improve ambulation and balance to decrease fall risk and improve ADL. Adult Risk Screening There are no spiritual/cultural practices/values/needs that are important to know Initial Fall Risk Screening: REEMA has fallen in the last 6 months. She has fallen due to 3x. Her fall resulted in the following injury: Cut head open. REEMA has a fear of falling. She needs assistance with . Needs assistance walking in her home. She needs assistance in an unfamiliar setting. The patient is using an assistive device. Fall Risk Screening: Patient is identified as a fall risk. Care Plan: High Risk: Low and Moderate risk interventions plus: ensure patient is escorted at all times, do not leave unattended, inform provider of high risk status, discharge by wheelchair or escort assistance, room location, sitter, pre and post sedation/procedure standards, supervised toileting. Please identify location of pain: R knee anterior/posterior. Pain Quality: aching and stabbing. The pain makes it hard for the patient to do these things: walking, sleep and self-care (bathing, dressing, eating). Living Will. Living Will: No living will on file. Healthcare POA: Health care proxy on file. Declaration of Mental Health Treatment: No mental health treatment on file. Depression/Suicide Screening: During the past 2 weeks, the patient felt down, depressed or hopeless. During the past 2 weeks, the patient felt little interest or pleasure in doing things. PHQ-9 performed by PCP last visit 12/15/22 Insurance Insurance reviewed Visit number: 15 Authorization not required after evaluation Insurance: Medicaid (med necessity) Evaluating therapist: Trice Tejada, PT, DPT PT dx: M25.569, R26.89 Med dx: W19.XXXD Precautions:High fall d/t gait abnormalities Onset Date: 2022 Subjective Patient reports:. Patient reports no falls and states pain of 0/10 today. Post aquatics states 0/10 pain. Precautions: seizures. PMHx:. Treatment Time in clinic started at 10:00 am Time in clinic ended at 10:45 am Total time in clinic is 45 minutes. Total timed code time is 40 minutes. Therapeutic Activity (57774):. Below not performed HEP and POC review Education on RW height and safety with transfers Ambulation throughout clinic with CGA and w/c follow. Aquatic Therapy (62533): timed minutes 40, units 3 . Patient enter/exits poll with pool chair Patient needing one noodle to ambulate across pool 3 laps Standing heel raises x 15 Standing squats x 15 Standing hip abd/add x 15 Alt. december Steps x 15 Patient needing to lean against [pool wall for UE Paddles UE PADDLES x 20 ea. L2 Flex/ext, abd/add, push/pull, H. abd/add 100% UNLOADING 1 noodle Bike 5' Hip Abd/add 5' Hang 5' Free floating for body relaxation. WATSU. 'Scores and Scales' Signatures Electronically signed by : Pippa Freeman, IDENTIFICATION AND RECORDS COMMANDER; Apr 02 2023 10:48AM EST (Author) Electronically signed by : Trice Tejada, PT; Apr 16 2023 1:20PM EST (Author) Normal [facility] CBC AND DIFFERENTIALon 04-01 % AUTOMATED IMMATURE GRAN 0.4 % Normal 0.0 - 0.9 [facility] Comment on above: Result Comment: Suze ture Granulocyte Count (IG) includes promyelocytes, myelocytes and metamyelocytes but does not include bands. Percent differential counts (%) should be interpreted in the context of the absolute cell counts (cells/L). Performed By: #### C BCDF ####[address] [address] Basophils (Bld) [#/Vol] 0.02 10*3/uL Normal 0.00 - 0.10 [facility] Comment on above: Performed By: #### C BCDF ####[address] [address] Basophils/100 WBC (Bld) 0.2 % Normal 0.0 - 2.0 [facility] Comment on above: Performed By: #### C BCDF ####[address] [address] Eosinophils (Bld) [#/Vol] 0.02 10*3/uL Normal 0.00 - 0.70 [facility] Comment on above: Performed By: #### C BCDF ####[address] [address] Eosinophils/100 WBC (Bld) 0.2 % Normal 0.0 - 6.0 [facility] Comment on above: Performed By: #### C BCDF ####[address] [address] Erythrocyte distribution width (RBC) [Ratio] 12.8 % Normal 11.5 - 14.5 [facility] Comment on above: Performed By: #### C BCDF ####[address] [address] Hematocrit (Bld) [Volume fraction] 44.6 % Normal 36.0 - 46.0 [facility] Comment on above: Performed By: #### C BCDF ####[address] [address] Hemoglobin (Bld) [Mass/Vol] 15.1 g/dL Normal 12.0 - 16.0 [facility] Comment on above: Performed By: #### C BCDF ####[address] [address] Lymphocytes (Bld) [#/Vol] 1.90 10*3/uL Normal 1.20 - 4.80 [facility] Comment on above: Performed By: #### C BCDF ####[address] [address] Lymphocytes/100 WBC (Bld) 16.7 % Normal 13.0 - 44.0 [facility] Comment on above: Performed By: #### C BCDF ####[address] [address] MCHC (RBC) [Mass/Vol] 33.9 g/dL Normal 32.0 - 36.0 [facility] Comment on above: Performed By: #### C BCDF ####[address] [address] MCV (RBC) [Entitic vol] 91 fL Normal 80 - 100 [facility] Comment on above: Performed By: #### C BCDF ####[address] [address] Monocytes (Bld) [#/Vol] 0.94 10*3/uL Normal 0.10 - 1.00 [facility] Comment on above: Performed By: #### C BCDF ####[address] [address] Monocytes/100 WBC (Bld) 8.3 % Normal 2.0 - 10.0 [facility] Comment on above: Performed By: #### C BCDF ####[address] [address] Neutrophils (Bld) [#/Vol] 8.44 10*3/uL High 1.20 - 7.70 [facility] Comment on above: Result Comment: Perc ent differential counts (%) should be interpreted in the context of the absolute cell counts (cells/L). Performed By: #### C BCDF ####[address] [address] Neutrophils/100 WBC (Bld) 74.2 % Normal 40.0 - 80.0 [facility] Comment on above: Performed By: #### C BCDF ####[address] [address] Platelets (Bld) [#/Vol] 151 10*3/uL Normal 150 - 450 [facility] Comment on above: Performed By: #### C BCDF ####[address] [address] RBC 4.93 x10E12/L Normal 4.00 - 5.20 [facility] Comment on above: Performed By: #### C BCDF ####[address] [address] WBC (Bld) [#/Vol] 11.4 10*3/uL High 4.4 - 11.3 [facility] Comment on above: Performed By: #### C BCDF ####[address] [address] COMPREHENSIVE PANELon 2022 Albumin [Mass/Vol] 4.7 g/dL Normal 3.4 - 5.0 [facility] Comment on above: Performed By: #### C MP ####[address] [address] ALP [Catalytic activity/Vol] 73 U/L Normal 33 - 110 [facility] Comment on above: Performed By: #### C MP ####[address] [address] ALT [Catalytic activity/Vol] 18 U/L Normal 7 - 45 [facility] Comment on above: Result Comment: Marjan ents treated with Sulfasalazine may generate falsely decreased results for ALT. Performed By: #### C MP ####[address] [address] Anion gap [Moles/Vol] 19 mmol/L Normal 10 - 20 [facility] Comment on above: Performed By: #### C MP ####[address] [address] AST [Catalytic activity/Vol] 20 U/L Normal 9 - 39 [facility] Comment on above: Performed By: #### C MP ####[address] [address] Bilirubin [Mass/Vol] 0.5 mg/dL Normal 0.0 - 1.2 [facility] Comment on above: Performed By: #### C MP ####[address] [address] Calcium [Mass/Vol] 9.8 mg/dL Normal 8.6 - 10.3 [facility] Comment on above: Performed By: #### C MP ####[address] [address] Chloride [Moles/Vol] 99 mmol/L Normal 98 - 107 [facility] Comment on above: Performed By: #### C MP ####[address] [address] Creatinine [Mass/Vol] 1.57 mg/dL High 0.50 - 1.05 [facility] Comment on above: Performed By: #### C MP ####[address] [address] GFR/1.73 sq M.predicted among non-blacks MDRD (S/P/Bld) [Vol rate/Area] 40 mL/min/{1.73_m2} Abnormal >90 [facility] Comment on above: Result Comment: CALC ULATIONS OF ESTIMATED GFR ARE PERFORMED USING THE 2020 CKD-EPI STUDY REFIT EQUATION WITHOUT THE RACE VARIABLE FOR THE IDMS-TRACEABLE CREATININE METHODS.https://jasn.asnjournals.org/content/early/ N.1000272454 Performed By: #### C MP ####[address] [address] Glucose [Mass/Vol] 104 mg/dL High 74 - 99 [facility] Comment on above: Performed By: #### C MP ####[address] [address] HCO3 (Bld) [Moles/Vol] 22 mmol/L Normal 21 - 32 [facility] Comment on above: Performed By: #### C MP ####[address] [address] Potassium [Moles/Vol] 4.4 mmol/L Normal 3.5 - 5.3 [facility] Comment on above: Performed By: #### C MP ####[address] [address] Protein [Mass/Vol] 7.2 g/dL Normal 6.4 - 8.2 [facility] Comment on above: Performed By: #### C MP ####[address] [address] Sodium [Moles/Vol] 136 mmol/L Normal 136 - 145 [facility] Comment on above: Performed By: #### C MP ####[address] [address] Urea nitrogen [Mass/Vol] 23 mg/dL Normal 6 - 23 [facility] Comment on above: Performed By: #### C MP ####[address] [address] Complete Blood Count + Diffe laureen 04-01-2023 Basophils/100 WBC (Bld) 0.2 % 0.0 - 2.0 [facility] [place] Work Phone: Erythrocyte distribution width (RBC) [Ratio] 12.8 % See Below [facility] Work Phone: Comment on above: Reference Range: 11. 5 - 14.5 Hematocrit (Bld) [Volume fraction] 44.6 % See Below [facility] Work Phone: Comment on above: Reference Range: 36. 0 - 46.0 Hemoglobin (Bld) [Mass/Vol] 15.1 g/dL See Below [facility] Work Phone: Comment on above: Reference Range: 12. 0 - 16.0 Lymphocytes/100 WBC (Bld) 16.7 % See Below [facility] Work Phone: Comment on above: Reference Range: 13. 0 - 44.0 MCHC (RBC) [Mass/Vol] 33.9 g/dL See Below [facility] Work Phone: Comment on above: Reference Range: 32. 0 - 36.0 MCV (RBC) [Entitic vol] 91 fL 80 - 100 [facility] Work Phone: Monocytes/100 WBC (Bld) 8.3 % 2.0 - 10.0 [facility] Work Phone: Neutrophils/100 WBC (Bld) 74.2 % See Below [facility] Work Phone: Comment on above: Reference Range: 40. 0 - 80.0 Platelets (Bld) [#/Vol] 151 10*3/uL 150 - 450 [facility] Work Phone: RBC (Bld) [#/Vol] 4.93 {x10E12/L} See Below [facility] Work Phone: Comment on above: Reference Range: 4.0 0 - 5.20 WBC (Bld) [#/Vol] 11.4 10*3/uL above high threshold 4.4 - 11.3 [facility] Work Phone: Complete Blood Count + Differential 0.02 {x10E9/L} See Below [facility] Work Phone: Comment on above: Reference Range: 0.0 0 - 0.10 Reference Range: 0.0 0 - 0.70 Complete Blood Count + Differential 0.94 {x10E9/L} See Below [facility] Work Phone: Comment on above: Reference Range: 0.1 0 - 1.00 Complete Blood Count + Differential 1.90 {x10E9/L} See Below [facility] Work Phone: Comment on above: Reference Range: 1.2 0 - 4.80 Complete Blood Count + Differential 8.44 {x10E9/L} above high threshold See Below [facility] Work Phone: Comment on above: Reference Range: 1.2 0 - 7.70 Percent differential counts (%) should be interpreted in the context of the absolute cell counts (cells/L). Complete Blood Count + Differential 0.2 % 0.0 - 6.0 [facility] Work Phone: Complete Blood Count + Differential 0.4 % 0.0 - 0.9 [facility] Work Phone: Comment on above: Immature Granulocyte Count (IG) includes promyelocytes, myelocytes and metamyelocytes but does not include bands. Percent differential counts (%) should be interpreted in the context of the absolute cell counts (cells/L). LACTATEon 04-01-2023 Lactate [Moles/Vol] 0.9 mmol/L Normal 0.4 - 2.0 [facility] Comment on above: Result Comment: Nathalie puncture immediately after or during the administration of Metamizole may lead to falsely low results. Testing should be performed immediately prior to Metamizole dosing. Performed By: #### L ACT ####[place] [address] Lactate [Moles/Vol] 2.7 mmol/L High 0.4 - 2.0 [facility] Comment on above: Result Comment: Nathalie puncture immediately after or during the administration of Metamizole may lead to falsely low results. Testing should be performed immediately prior to Metamizole dosing. Performed By: #### L ACT ####[address] [place] [address] LDHon 04-01-2023 LDH Canceled Normal [facility] Comment on above: Order Comment: TEST LDH WAS CANCELLED, 04/01/2023 02:14 Performed By: #### L DH ####[id number] [place] [address] Laboratory - Chemistry and C hemistry - challengeon 04-01-2023 Albumin BCP dye [Mass/Vol] 4.7 g/dL 3.4 - 5.0 [facility] [employer] Work Phone: ALP [Catalytic activity/Vol] 73 U/L 33 - 110 [facility] [place] Work Phone: ALT With P-5'-P [Catalytic activity/Vol] 18 U/L 7 - 45 [facility] [employer] Work Phone: Comment on above: Patients treated wit h Sulfasalazine may generate falsely decreased results for ALT. Anion gap [Moles/Vol] 19 mmol/L 10 - 20 [facility] [employer] Work Phone: AST With P-5'-P [Catalytic activity/Vol] 20 U/L 9 - 39 [facility] [employer] Work Phone: Bilirubin [Mass/Vol] 0.5 mg/dL 0.0 - 1.2 R e[facility] [employer] Work Phone: Calcium [Mass/Vol] 9.8 mg/dL 8.6 - 10.3 [facility] [employer] Work Phone: Chloride [Moles/Vol] 99 mmol/L 98 - 107 R e[facility] [employer] Work Phone: CO2 [Moles/Vol] 22 mmol/L 21 - 32 [facility] [employer] Work Phone: Creatinine [Mass/Vol] 1.57 mg/dL above high threshold See Below [facility] [place] Work Phone: Comment on above: Reference Range: 0.5 0 - 1.05 Glucose [Mass/Vol] 104 mg/dL above high threshold 74 - 99 [facility] [place] Work Phone: Potassium [Moles/Vol] 4.4 mmol/L 3.5 - 5.3 [facility] [place] Work Phone: Protein [Mass/Vol] 7.2 g/dL 6.4 - 8.2 [facility] Work Phone: Sodium [Moles/Vol] 136 mmol/L 136 - 145 [facility] [place] Work Phone: Urea nitrogen [Mass/Vol] 23 mg/dL 6 - 23 [facility] [place] Work Phone: Lactate, Levelon 04-01-2023 Lactate [Moles/Vol] 0.9 mmol/L 0.4 - 2.0 [facility] [place] Work Phone: Comment on above: Venipuncture immedia tely after or during the administration of Metamizole may lead to falsely low results. Testing should be performed immediately prior to Metamizole dosing. Lactate [Moles/Vol] 2.7 mmol/L above high threshold 0.4 - 2.0 [facility] [place] Work Phone: Comment on above: Venipuncture immedia tely after or during the administration of Metamizole may lead to falsely low results. Testing should be performed immediately prior to Metamizole dosing. No Panel Informationon 04-01 40 {mL/min/1.73m2} Abnormal >90 [facility] [place] Work Phone: Comment on above: CALCULATIONS OF FRIEDA MATED GFR ARE PERFORMED USING THE 2020 CKD-EPI STUDY REFIT EQUATION WITHOUT THE RACE VARIABLE FOR THE IDMS-TRACEABLE CREATININE METHODS.https://jasn.asnjournals.org/content// N.0003390401 Provider Note - ED v3on - Provider Note - ED v3 Normal [facility] Risk Screen - Adult Emergenc yon 04-01-2023 Risk Screen - Adult Emergency Normal [facility] TSHon 04-01-2023 TSH Qn 2.89 m[IU]/L Normal 0.44 - 3.98 [facility] Comment on above: Result Comment: TSH testing is performed using different testing methodology at [facility] than at other [facility]. Direct result comparisons should only be made within the same method. Performed By: #### T SH2 ####[id number] [place] [id number] TSH - Thyroid Stimulating Ho rmone, Serumon 04-01-2023 TSH Qn 2.89 m[IU]/L See Below [facility] Work Phone: Comment on above: Reference Range: 0.4 4 - 3.98 TSH testing is performed using different testing methodology at [facility] than at other [facility]. Direct result comparisons should only be made within the same method. Triage - EDon 04-01-2023 Triage - ED Normal [facility] Therapy Communicationon Therapy Communication Message REEMA SHAH canceled today . Patient cancelled today due to not feeling well. Called patient and left message for her to return my call. Basim, who identified herself as the person in charge of Reema's transportation returned my call. I explained that there would not be an Aid here to assist Reema in the locker room to change in/out of pool clothes at her next scheduled appointment. Gave Basim the option to reschedule that appointment or make sure there would be someone with her to assist. Basim stated that she would be able to attend Bsaim's next appointment with her and assist her. Signatures Electronically signed by : Naomy Geller PTA; Mar 26 2023 11:25AM EST (Author) Normal [facility] PT Progress Noteon 3 PT Progress Note Therapy Diagnosis Assessed Knee pain (719.46) (M25.569) Widebased gait (781.2) (R26.89) Fall, subsequent encounter (V58.89,E888.9) (W19.XXXD) Plan Goals: Goals set and discussed today. Activity Limitation: Improved ABC scale score to 15% to demonstrate increased dynamic balance with transfers and ambulation-ongoing, by week 4 Balance: 5xSTS to 12 seconds to demonstrate increased functional strength to decrease fall risk and ease of dynamic stability with transfers-ongoing, by week 4 Pain: 3/10 R knee pain baseline for ease with sleeping and transfers-PARTIALLY MET, by week 4 Range Of Motion/Joint Mobility: Improved R knee AROM 0-120 deg for ease with ambulation and transfers-ongoing, by week 4 Strength: Improved gross B hip, knee, and ankle strength 5/5 MMT for ease with ambulation and transfers to prevent falls-PARTIALLY MET, by week 4 HEP, Patient will demonstrate compliance in their home exercise program in order to promote independence in self management of functional mobility.-MET, by week 2 Planned interventions include: aquatic therapy, education/instruction, home program, manual therapy, neuromuscular re-education, self care/home management, therapeutic activities and therapeutic exercises. Frequency and duration: 2 time(s) a week, for 4 weeks, for 8 visits. Potential to achieve rehab goals is fair: Continue with LE strength/balance to improve ambulation, relaxation to decrease fall riak. Progress with POC, as tolerated. Assessment Patient tolerated treatment without pain. Patient has Fair TrA and keeps intact with ther-ex. Patient needing to use pool chair to enter/exit ppol. Patient needing one noodle to ambulate across pool. Patient needing one UE support with LE ther-ex and B UE support with 100% unloading. Performed Watsu treatment x 7 minutes at end of treatment for relaxation. Continue with LE strength/watsu to improve balance and ambulation to decrease fall risk. Adult Risk Screening There are no spiritual/cultural practices/values/needs that are important to know Initial Fall Risk Screening: REEMA has fallen in the last 6 months. She has fallen due to 3x. Her fall resulted in the following injury: Cut head open. REEMA has a fear of falling. She needs assistance with . Needs assistance walking in her home. She needs assistance in an unfamiliar setting. The patient is using an assistive device. Fall Risk Screening: Patient is identified as a fall risk. Care Plan: High Risk: Low and Moderate risk interventions plus: ensure patient is escorted at all times, do not leave unattended, inform provider of high risk status, discharge by wheelchair or escort assistance, room location, sitter, pre and post sedation/procedure standards, supervised toileting. Please identify location of pain: R knee anterior/posterior. Pain Quality: aching and stabbing. The pain makes it hard for the patient to do these things: walking, sleep and self-care (bathing, dressing, eating). Living Will. Living Will: No living will on file. Healthcare POA: Health care proxy on file. Declaration of Mental Health Treatment: No mental health treatment on file. Depression/Suicide Screening: During the past 2 weeks, the patient felt down, depressed or hopeless. During the past 2 weeks, the patient felt little interest or pleasure in doing things. PHQ-9 performed by PCP last visit 12/15/22 Insurance Insurance reviewed Visit number: 14 Authorization not required after evaluation Insurance: Medicaid (med necessity) Evaluating therapist: Trice Tejada, PT, DPT PT dx: M25.569, R26.89 Med dx: W19.XXXD Precautions:High fall d/t gait abnormalities Onset Date: 2022 Subjective Patient reports:. Patient reports no pain today but states has a headache. Post aquatics states feel better. Precautions: seizures. PMHx:. Treatment Time in clinic started at 9:15 am Time in clinic ended at 10:00 am Total time in clinic is 45 minutes. Total timed code time is 39 minutes. Therapeutic Activity (22905):. HEP and POC review Education on RW height and safety with transfers Ambulation throughout clinic with CGA and w/c follow. Aquatic Therapy (21170): timed minutes 39, units 3 . Patient enter/exits poll with pool chair Patient needing one noodle to ambulate across pool 3 laps Standing heel raises x 12 Standing squats x 12 Standing hip abd/add x 12 Alt. december Steps x 12 Patient needing to lean against [pool wall for UE Paddles UE PADDLES x 20 ea. L2 Flex/ext, abd/add, push/pull, H. abd/add 100% UNLOADING 1 noodle Bike 5' Hip Abd/add 5' Hang 5' Free floating for body relaxation. WATSU. 'Scores and Scales' Signatures Electronically signed by : Pippa Freeman IDENTIFICATION AND RECORDS COMMANDER; Mar 19 2023 10:03AM EST (Author) Electronically signed by : Trice Tejada, PT; Mar 27 2023 11:03PM EST [facility] Progress Noteon PT Progress Note Therapy Diagnosis Assessed Knee pain (719.46) (M25.569) Widebased gait (781.2) (R26.89) Fall, subsequent encounter (V58.89,E888.9) (W19.XXXD) Plan Goals: Goals set and discussed today. Activity Limitation: Improved ABC scale score to 15% to demonstrate increased dynamic balance with transfers and ambulation-PARTIALLY MET, by week 5 Balance: 5xSTS to 12 seconds to demonstrate increased functional strength to decrease fall risk and ease of dynamic stability with transfers-PARTIALLY MET, by week 5 Pain: 3/10 R knee pain baseline for ease with sleeping and transfers-PARTIALLY MET, by week 5 Range Of Motion/Joint Mobility: Improved R knee AROM 0-120 deg for ease with ambulation and transfers-PARTIALLY MET, by week 5 Strength: Improved gross B hip, knee, and ankle strength 5/5 MMT for ease with ambulation and transfers to prevent falls-PARTIALLY MET, by week 5 HEP, Patient will demonstrate compliance in their home exercise program in order to promote independence in self management of functional mobility.-MET, by week 2 Planned interventions include: aquatic therapy, education/instruction, home program, manual therapy, neuromuscular re-education, self care/home management, therapeutic activities and therapeutic exercises. Frequency and duration: 2 time(s) a week, for 5 weeks, for 10 visits. Potential to achieve rehab goals is fair: Progress with gait training, R knee mobility, and balance training in aquatic based setting to decrease risk of falls and improve ADL/iADL completion . Progress with POC, as tolerated. Assessment Reema Shah is progressing well through their POC addressing R knee pain and balance deficits. The pt demonstrates and verbalizes improvements in functional strength per 5xSTS, subjective balance per ABC scale, B hip musculature strength, and gait mechanics. This contributes to greater ease with transfers and ambulation however pt is still experiencing difficulty with R knee pain and deficits in dynamic balance. Patient has attended 8 PT sessions since last reassessment performing aquatic therapy for offloading of joints for ease of exercise. Patient is partially meeting or met all current PT goals. Demonstrating improvement overall in functional strength and ambulation tolerance compared to last reassessment. The pt will benefit from continued skilled PT services 2x/week for 5 weeks to address the above stated impairments and functional limitations to maximize participation and ease in household and social related activities. Plan to focus on gait training, B hip, knee, and ankle musculature strengthening, and balance interventions in aquatic based setting to improve participation with tremors and improve ease with ADLs/iADLs. Patient may benefit from further follow up of R knee pain d/t continued pain that presents with land based ambulation. 0/10 pain at end of session. Pt verbalized understanding and agreement to goals and POC. Thank you for this referral and please call [phone] with any questions or concerns. Adult Risk Screening There are no spiritual/cultural practices/values/needs that are important to know Initial Fall Risk Screening: REEMA has fallen in the last 6 months. She has fallen due to 3x. Her fall resulted in the following injury: Cut head open. REEMA has a fear of falling. She needs assistance with . Needs assistance walking in her home. She needs assistance in an unfamiliar setting. The patient is using an assistive device. Fall Risk Screening: Patient is identified as a fall risk. Care Plan: High Risk: Low and Moderate risk interventions plus: ensure patient is escorted at all times, do not leave unattended, inform provider of high risk status, discharge by wheelchair or escort assistance, room location, sitter, pre and post sedation/procedure standards, supervised toileting. Please identify location of pain: R knee anterior/posterior. Pain Quality: aching and stabbing. The pain makes it hard for the patient to do these things: walking, sleep and self-care (bathing, dressing, eating). Living Will. Living Will: No living will on file. Healthcare POA: Health care proxy on file. Declaration of Mental Health Treatment: No mental health treatment on file. Depression/Suicide Screening: During the past 2 weeks, the patient felt down, depressed or hopeless. During the past 2 weeks, the patient felt little interest or pleasure in doing things. PHQ-9 performed by PCP last visit 12/15/22 Insurance Insurance reviewed Visit number: 13 Authorization not required after evaluation Insurance: Medicaid (med necessity) Evaluating therapist: Tirce Tejada, PT, DPT PT dx: M25.569, R26.89 Med dx: W19.XXXD Precautions:High fall d/t gait abnormalities Onset Date: 2022 Subjective Patient reports:. Patient confirmed name and date of this session. Patient reports having pain of the R knee. Pain is reported at a 0/10 with 9/10 pain with ambulation. Patient re (more content not included)... Normal [facility] Therapy Re-eval Noteon 03-10 Therapy Re-eval Note Therapy Diagnosis Assessed 1. Knee pain (719.46) (M25.569) 2. Widebased gait (781.2) (R26.89) 3. Fall, subsequent encounter (V58.89,E888.9) (W19.XXXD) Plan Goals: Goals set and discussed today. Activity Limitation: Improved ABC scale score to 15% to demonstrate increased dynamic balance with transfers and ambulation-PARTIALLY MET, by week 5 Balance: 5xSTS to 12 seconds to demonstrate increased functional strength to decrease fall risk and ease of dynamic stability with transfers-PARTIALLY MET, by week 5 Pain: 3/10 R knee pain baseline for ease with sleeping and transfers-PARTIALLY MET, by week 5 Range Of Motion/Joint Mobility: Improved R knee AROM 0-120 deg for ease with ambulation and transfers-PARTIALLY MET, by week 5 Strength: Improved gross B hip, knee, and ankle strength 5/5 MMT for ease with ambulation and transfers to prevent falls-PARTIALLY MET, by week 5 HEP, Patient will demonstrate compliance in their home exercise program in order to promote independence in self management of functional mobility.-MET, by week 2 Planned interventions include: aquatic therapy, education/instruction, home program, manual therapy, neuromuscular re-education, self care/home management, therapeutic activities and therapeutic exercises. Frequency and duration: 2 time(s) a week, for 5 weeks, for 10 visits. Potential to achieve rehab goals is fair: Progress with gait training, R knee mobility, and balance training in aquatic based setting to decrease risk of falls and improve ADL/iADL completion . Progress with POC, as tolerated. Assessment Reema Shah is progressing well through their POC addressing R knee pain and balance deficits. The pt demonstrates and verbalizes improvements in functional strength per 5xSTS, subjective balance per ABC scale, B hip musculature strength, and gait mechanics. This contributes to greater ease with transfers and ambulation however pt is still experiencing difficulty with R knee pain and deficits in dynamic balance. Patient has attended 8 PT sessions since last reassessment performing aquatic therapy for offloading of joints for ease of exercise. Patient is partially meeting or met all current PT goals. Demonstrating improvement overall in functional strength and ambulation tolerance compared to last reassessment. The pt will benefit from continued skilled PT services 2x/week for 5 weeks to address the above stated impairments and functional limitations to maximize participation and ease in household and social related activities. Plan to focus on gait training, B hip, knee, and ankle musculature strengthening, and balance interventions in aquatic based setting to improve participation with tremors and improve ease with ADLs/iADLs. Patient may benefit from further follow up of R knee pain d/t continued pain that presents with land based ambulation. 0/10 pain at end of session. Pt verbalized understanding and agreement to goals and POC. Thank you for this referral and please call [phone] with any questions or concerns. Adult Risk Screening There are no spiritual/cultural practices/values/needs that are important to know Initial Fall Risk Screening: REEMA has fallen in the last 6 months. She has fallen due to 3x. Her fall resulted in the following injury: Cut head open. REEMA has a fear of falling. She needs assistance with . Needs assistance walking in her home. She needs assistance in an unfamiliar setting. The patient is using an assistive device. Fall Risk Screening: Patient is identified as a fall risk. Care Plan: High Risk: Low and Moderate risk interventions plus: ensure patient is escorted at all times, do not leave unattended, inform provider of high risk status, discharge by wheelchair or escort assistance, room location, sitter, pre and post sedation/procedure standards, supervised toileting. Please identify location of pain: R knee anterior/posterior. Pain Quality: aching and stabbing. The pain makes it hard for the patient to do these things: walking, sleep and self-care (bathing, dressing, eating). Living Will. Living Will: No living will on file. Healthcare POA: Health care proxy on file. Declaration of Mental Health Treatment: No mental health treatment on file. Depression/Suicide Screening: During the past 2 weeks, the patient felt down, depressed or hopeless. During the past 2 weeks, the patient felt little interest or pleasure in doing things. PHQ-9 performed by PCP last visit 12/15/22 Insurance Insurance reviewed Visit number: 13 Authorization not required after evaluation Insurance: Medicaid (med necessity) Evaluating therapist: Trice Tejada, PT, DPT PT dx: M25.569, R26.89 Med dx: W19.XXXD Precautions:High fall d/t gait abnormalities Onset Date: 2022 Subjective Patient reports:. Patient confirmed name and date of this session. Patient reports having pain of the R knee. Pain is reported at a 0/10 with 9/10 pain with ambulation. P (more content not included)... [facility] PT Progress Noteon 3 PT Progress Note Therapy Diagnosis Assessed Knee pain (719.46) (M25.569) Widebased gait (781.2) (R26.89) Fall, subsequent encounter (V58.89,E888.9) (W19.XXXD) Plan Goals: Goals set and discussed today. Activity Limitation: Improved ABC scale score to 15% to demonstrate increased dynamic balance with transfers and ambulation-ongoing, by week 4 Balance: 5xSTS to 12 seconds to demonstrate increased functional strength to decrease fall risk and ease of dynamic stability with transfers-ongoing, by week 4 Pain: 3/10 R knee pain baseline for ease with sleeping and transfers-PARTIALLY MET, by week 4 Range Of Motion/Joint Mobility: Improved R knee AROM 0-120 deg for ease with ambulation and transfers-ongoing, by week 4 Strength: Improved gross B hip, knee, and ankle strength 5/5 MMT for ease with ambulation and transfers to prevent falls-PARTIALLY MET, by week 4 HEP, Patient will demonstrate compliance in their home exercise program in order to promote independence in self management of functional mobility.-MET, by week 2 Planned interventions include: aquatic therapy, education/instruction, home program, manual therapy, neuromuscular re-education, self care/home management, therapeutic activities and therapeutic exercises. Frequency and duration: 2 time(s) a week, for 4 weeks, for 8 visits. Potential to achieve rehab goals is fair: Continue with gait/mobility/balance to improve ambulation, ADL. Progress with POC, as tolerated. Assessment Patient tolerated treatment without pain. Patient uses pool chair to enter/exit pool. Patient has good TrA and keeps intact with ther-ex. Patient needing one noodle to ambulate across pool and needing one UE support to perform LE ther-ex and 100% unloading. Continue with gait/balance/ther-ex to decrease fall risk and improve ambulation. At end of session, patient free floats to decrease full body tremors. Adult Risk Screening There are no spiritual/cultural practices/values/needs that are important to know Initial Fall Risk Screening: REEMA has fallen in the last 6 months. She has fallen due to 3x. Her fall resulted in the following injury: Cut head open. REEMA has a fear of falling. She needs assistance with . Needs assistance walking in her home. She needs assistance in an unfamiliar setting. The patient is using an assistive device. Fall Risk Screening: Patient is identified as a fall risk. Care Plan: High Risk: Low and Moderate risk interventions plus: ensure patient is escorted at all times, do not leave unattended, inform provider of high risk status, discharge by wheelchair or escort assistance, room location, sitter, pre and post sedation/procedure standards, supervised toileting. Please identify location of pain: R knee anterior/posterior. Pain Quality: aching and stabbing. The pain makes it hard for the patient to do these things: walking, sleep and self-care (bathing, dressing, eating). Living Will. Living Will: No living will on file. Healthcare POA: Health care proxy on file. Declaration of Mental Health Treatment: No mental health treatment on file. Depression/Suicide Screening: During the past 2 weeks, the patient felt down, depressed or hopeless. During the past 2 weeks, the patient felt little interest or pleasure in doing things. PHQ-9 performed by PCP last visit 12/15/22 Insurance Insurance reviewed Visit number: 12 Authorization not required after evaluation Insurance: Medicaid (med necessity) Evaluating therapist: Trice Tejada, PT, DPT PT dx: M25.569, R26.89 Med dx: W19.XXXD Precautions:High fall d/t gait abnormalities Onset Date: 2022 Subjective Patient reports:. Patient reports no falls and states no pain today. Patient has reassessment next visit with PT. Precautions: seizures. PMHx:. Treatment Time in clinic started at 1:00 pm Time in clinic ended at 1:45 pm Total time in clinic is 45 minutes. Total timed code time is 40 minutes. Therapeutic Activity (96239):. HEP and POC review Education on RW height and safety with transfers Ambulation throughout clinic with CGA and w/c follow. Aquatic Therapy (33014): timed minutes 40, units 3 . Patient enter/exits poll with pool chair Patient needing one noodle to ambulate across pool 3 laps Standing heel raises x 12 Standing squats x 12 Standing hip abd/add x 12 Alt. december Steps x 12 Patient needing to lean against [pool wall for UE Paddles UE PADDLES x 20 ea. L2 Flex/ext, abd/add, push/pull, H. abd/add 100% UNLOADING 1 noodle Bike 5' Hip Abd/add 5' Hang 5' Free floating for body relaxation. 'Scores and Scales' Signatures Electronically signed by : Pippa Freeman, IDENTIFICATION AND RECORDS COMMANDER; Mar 08 2023 2:05PM EST (Author) Electronically signed by : Trice Tejada, PT; Mar 12 2023 6:50PM EST Normal [facility] PT Progress Noteon 3 PT Progress Note Therapy Diagnosis Assessed Fall, subsequent encounter (V58.89,E888.9) (W19.XXXD) Knee pain (719.46) (M25.569) Widebased gait (781.2) (R26.89) Plan Goals: Goals set and discussed today. Activity Limitation: Improved ABC scale score to 15% to demonstrate increased dynamic balance with transfers and ambulation-ongoing, by week 4 Balance: 5xSTS to 12 seconds to demonstrate increased functional strength to decrease fall risk and ease of dynamic stability with transfers-ongoing, by week 4 Pain: 3/10 R knee pain baseline for ease with sleeping and transfers-PARTIALLY MET, by week 4 Range Of Motion/Joint Mobility: Improved R knee AROM 0-120 deg for ease with ambulation and transfers-ongoing, by week 4 Strength: Improved gross B hip, knee, and ankle strength 5/5 MMT for ease with ambulation and transfers to prevent falls-PARTIALLY MET, by week 4 HEP, Patient will demonstrate compliance in their home exercise program in order to promote independence in self management of functional mobility.-MET, by week 2 Planned interventions include: aquatic therapy, education/instruction, home program, manual therapy, neuromuscular re-education, self care/home management, therapeutic activities and therapeutic exercises. Frequency and duration: 2 time(s) a week, for 4 weeks, for 8 visits. Potential to achieve rehab goals is fair: Continue with gait/ambulation to improve mobility and balance. Progress with POC, as tolerated. Assessment Patient tolerated treatment without increased pain. Patient has weak TrA and keeps intact with ther-ex. Patient needing use of pool chair to enter/exit pool. Patient needing one noodle and ENTER[employer]ISE INTEGRATION DEVELOPER to ambulate across pool. Patient with improved ambulation across pool and decreased tremors in pool today. Continue with gait/ambulation to decrease fall risk and improve LE strength. Adult Risk Screening There are no spiritual/cultural practices/values/needs that are important to know Initial Fall Risk Screening: REEMA has fallen in the last 6 months. She has fallen due to 3x. Her fall resulted in the following injury: Cut head open. REEMA has a fear of falling. She needs assistance with . Needs assistance walking in her home. She needs assistance in an unfamiliar setting. The patient is using an assistive device. Fall Risk Screening: Patient is identified as a fall risk. Care Plan: High Risk: Low and Moderate risk interventions plus: ensure patient is escorted at all times, do not leave unattended, inform provider of high risk status, discharge by wheelchair or escort assistance, room location, sitter, pre and post sedation/procedure standards, supervised toileting. Please identify location of pain: R knee anterior/posterior. Pain Quality: aching and stabbing. The pain makes it hard for the patient to do these things: walking, sleep and self-care (bathing, dressing, eating). Living Will. Living Will: No living will on file. Healthcare POA: Health care proxy on file. Declaration of Mental Health Treatment: No mental health treatment on file. Depression/Suicide Screening: During the past 2 weeks, the patient felt down, depressed or hopeless. During the past 2 weeks, the patient felt little interest or pleasure in doing things. PHQ-9 performed by PCP last visit 12/15/22 Insurance Insurance reviewed Visit number: 11 Authorization not required after evaluation Insurance: Medicaid (med necessity) Evaluating therapist: Trice Tejada, PT, DPT PT dx: M25.569, R26.89 Med dx: W19.XXXD Precautions:High fall d/t gait abnormalities Onset Date: 2022 Subjective Patient reports:. Patient reports no falls and states pain of 9/10 B knee's. Post aquatics states 0/10 b knee pain. Precautions: seizures. PMHx:. Treatment Time in clinic started at 10:00 am Time in clinic ended at 10:45 am Total time in clinic is 45 minutes. Total timed code time is 40 minutes. Therapeutic Activity (61818):. HEP and POC review Education on RW height and safety with transfers Ambulation throughout clinic with CGA and w/c follow. Aquatic Therapy (86798): timed minutes 40, units 3 . Patient enter/exits poll with pool chair Patient needing one noodle to ambulate across pool 3 laps Standing heel raises x 12 Standing squats x 12 Standing hip abd/add x 12 Alt. december Steps x 12 Patient needing to lean against [pool wall for UE Paddles UE PADDLES x 20 ea. L2 Flex/ext, abd/add, push/pull, H. abd/add 100% UNLOADING 1 noodle Bike 5' Hip Abd/add 5' Hang 5' Free hanging with noodle, kicking B LE's. 'Scores and Scales' Signatures Electronically signed by : Pippa Freeman, IDENTIFICATION AND RECORDS COMMANDER; Mar 03 2023 10:48AM EST (Author) Electronically signed by : Trice Tejada, PT; Mar 03 2023 5:39PM EST Normal [facility] PT Progress Noteon 3 PT Progress Note Therapy Diagnosis Assessed Fall, subsequent encounter (V58.89,E888.9) (W19.XXXD) Widebased gait (781.2) (R26.89) Knee pain (719.46) (M25.569) Plan Goals: Goals set and discussed today. Activity Limitation: Improved ABC scale score to 15% to demonstrate increased dynamic balance with transfers and ambulation-ongoing, by week 4 Balance: 5xSTS to 12 seconds to demonstrate increased functional strength to decrease fall risk and ease of dynamic stability with transfers-ongoing, by week 4 Pain: 3/10 R knee pain baseline for ease with sleeping and transfers-PARTIALLY MET, by week 4 Range Of Motion/Joint Mobility: Improved R knee AROM 0-120 deg for ease with ambulation and transfers-ongoing, by week 4 Strength: Improved gross B hip, knee, and ankle strength 5/5 MMT for ease with ambulation and transfers to prevent falls-PARTIALLY MET, by week 4 HEP, Patient will demonstrate compliance in their home exercise program in order to promote independence in self management of functional mobility.-MET, by week 2 Planned interventions include: aquatic therapy, education/instruction, home program, manual therapy, neuromuscular re-education, self care/home management, therapeutic activities and therapeutic exercises. Frequency and duration: 2 time(s) a week, for 4 weeks, for 8 visits. Potential to achieve rehab goals is fair: Continue with ambulation, balance to improve mobility, standing balance, ADL. Progress with POC, as tolerated. Assessment Patient tolerated treatment without pain. Patient has Fair TrA and keeps intact with ther-ex. Patient needing to use pool chair to enter/exit pool. Patient needing one noodle and ENTER[employer]ISE INTEGRATION DEVELOPER to ambulate across pool. Patient needing to lean against pool wall to perform UE ther-ex. Patient with full body tremors in water. Had patient stand still, therapist added pressure to shoulders and tremors would disapate. Continue with gait/mobility, standing to improve ambulation to decrease falls. Adult Risk Screening There are no spiritual/cultural practices/values/needs that are important to know Initial Fall Risk Screening: REEMA has fallen in the last 6 months. She has fallen due to 3x. Her fall resulted in the following injury: Cut head open. REEMA has a fear of falling. She needs assistance with . Needs assistance walking in her home. She needs assistance in an unfamiliar setting. The patient is using an assistive device. Fall Risk Screening: Patient is identified as a fall risk. Care Plan: High Risk: Low and Moderate risk interventions plus: ensure patient is escorted at all times, do not leave unattended, inform provider of high risk status, discharge by wheelchair or escort assistance, room location, sitter, pre and post sedation/procedure standards, supervised toileting. Please identify location of pain: R knee anterior/posterior. Pain Quality: aching and stabbing. The pain makes it hard for the patient to do these things: walking, sleep and self-care (bathing, dressing, eating). Living Will. Living Will: No living will on file. Healthcare POA: Health care proxy on file. Declaration of Mental Health Treatment: No mental health treatment on file. Depression/Suicide Screening: During the past 2 weeks, the patient felt down, depressed or hopeless. During the past 2 weeks, the patient felt little interest or pleasure in doing things. PHQ-9 performed by PCP last visit 12/15/22 Insurance Insurance reviewed Visit number: 10 Authorization not required after evaluation Insurance: Medicaid (med necessity) Evaluating therapist: Trice Tejada, PT, DPT PT dx: M25.569, R26.89 Med dx: W19.XXXD Precautions:High fall d/t gait abnormalities Onset Date: 2022 Subjective Patient reports:. Patient reports no falls and reports pain of 0/10 today. Post aquatics states 0/10 pain. Precautions: seizures. PMHx:. Treatment Time in clinic started at 1:00 pm Time in clinic ended at 1:45 pm Total time in clinic is 45 minutes. Total timed code time is 40 minutes. Therapeutic Activity (64164):. HEP and POC review Education on RW height and safety with transfers Ambulation throughout clinic with CGA and w/c follow. Aquatic Therapy (21210): timed minutes 40, units 3 . Patient enter/exits poll with pool chair Patient needing one noodle to ambulate across pool 3 laps Standing heel raises x 12 Standing squats x 12 Standing hip abd/add x 12 Alt. december Steps x 12 Patient needing to lean against [pool wall for UE Paddles UE PADDLES x 20 ea. L2 Flex/ext, abd/add, push/pull, H. abd/add 100% UNLOADING 1 noodle Bike 5' Hip Abd/add 5' Hang 5' Free hanging with noodle, kicking B LE's. 'Scores and Scales' Signatures Electronically signed by : Pippa Freeman PTA; Mar 01 2023 1:48PM EST (Author) Electronically signed by : Trice Tejada, PT; Mar 03 2023 5:39PM EST Normal [facility] PT Progress Noteon 3 PT Progress Note Therapy Diagnosis Assessed Knee pain (719.46) (M25.569) Widebased gait (781.2) (R26.89) Fall, subsequent encounter (V58.89,E888.9) (W19.XXXD) Plan Goals: Goals set and discussed today. Activity Limitation: Improved ABC scale score to 15% to demonstrate increased dynamic balance with transfers and ambulation-ongoing, by week 4 Balance: 5xSTS to 12 seconds to demonstrate increased functional strength to decrease fall risk and ease of dynamic stability with transfers-ongoing, by week 4 Pain: 3/10 R knee pain baseline for ease with sleeping and transfers-PARTIALLY MET, by week 4 Range Of Motion/Joint Mobility: Improved R knee AROM 0-120 deg for ease with ambulation and transfers-ongoing, by week 4 Strength: Improved gross B hip, knee, and ankle strength 5/5 MMT for ease with ambulation and transfers to prevent falls-PARTIALLY MET, by week 4 HEP, Patient will demonstrate compliance in their home exercise program in order to promote independence in self management of functional mobility.-MET, by week 2 Planned interventions include: aquatic therapy, education/instruction, home program, manual therapy, neuromuscular re-education, self care/home management, therapeutic activities and therapeutic exercises. Frequency and duration: 2 time(s) a week, for 4 weeks, for 8 visits. Potential to achieve rehab goals is fair: Continue with gait/mobility to decrease fall risk and improve sleep, standing, ambulation. Progress with POC, as tolerated. Assessment Patient tolerated treatment without increased pain. Patient has Fair TrA and keeps intact with ther-ex. Patient uses pool chair to enter/exit pool. Patient needing one noddle and ENTERPRISE INTEGRATION DEVELOPER to ambulate across pool. Patient needing one UE support with LE ther-ex and with 100% unloading. Patient has good form/understanding with ther-ex. Patient has full body tremors and needing to stand still until tremors pass. Continue with gait/mobility to decrease fall risk and improve mobility. Adult Risk Screening There are no spiritual/cultural practices/values/needs that are important to know Initial Fall Risk Screening: REEMA has fallen in the last 6 months. She has fallen due to 3x. Her fall resulted in the following injury: Cut head open. REEMA has a fear of falling. She needs assistance with . Needs assistance walking in her home. She needs assistance in an unfamiliar setting. The patient is using an assistive device. Fall Risk Screening: Patient is identified as a fall risk. Care Plan: High Risk: Low and Moderate risk interventions plus: ensure patient is escorted at all times, do not leave unattended, inform provider of high risk status, discharge by wheelchair or escort assistance, room location, sitter, pre and post sedation/procedure standards, supervised toileting. Please identify location of pain: R knee anterior/posterior. Pain Quality: aching and stabbing. The pain makes it hard for the patient to do these things: walking, sleep and self-care (bathing, dressing, eating). Living Will. Living Will: No living will on file. Healthcare POA: Health care proxy on file. Declaration of Mental Health Treatment: No mental health treatment on file. Depression/Suicide Screening: During the past 2 weeks, the patient felt down, depressed or hopeless. During the past 2 weeks, the patient felt little interest or pleasure in doing things. PHQ-9 performed by PCP last visit 12/15/22 Insurance Insurance reviewed Visit number: 9 Authorization not required after evaluation Insurance: Medicaid (med necessity) Evaluating therapist: Trice Tejada, PT, DPT PT dx: M25.569, R26.89 Med dx: W19.XXXD Precautions:High fall d/t gait abnormalities Onset Date: 2022 Subjective Patient reports:. Patient reports no falls and states 6/10 B knee pain. Post aquatics states 0/10 B knee pain. Precautions: seizures. PMHx:. Treatment Time in clinic started at 10:45 am Time in clinic ended at 11:30 am Total time in clinic is 45 minutes. Total timed code time is 40 minutes. Therapeutic Activity (25992):. HEP and POC review Education on RW height and safety with transfers Ambulation throughout clinic with CGA and w/c follow. Aquatic Therapy (88270): timed minutes 40, units 3 . Patient enter/exits poll with pool chair Patient needing one noodle to ambulate across pool 3 laps Standing heel raises x 12 Standing squats x 12 Standing hip abd/add x 12 Alt. december Steps x 12 Patient needing to lean against [pool wall for UE Paddles UE PADDLES x 20 ea. L2 Flex/ext, abd/add, push/pull, H. abd/add 100% UNLOADING 1 noodle Bike 5' Hip Abd/add 5' Hang 5' Free hanging with noodle, kicking B LE's. 'Scores and Scales' Signatures Electronically signed by : Pippa Freeman, IDENTIFICATION AND RECORDS COMMANDER; Feb 26 2023 11:33AM EST (Author) Electronically signed by : Trice Tejada, PT; Mar 03 2023 5:38PM EST [facility] Established Visit (Nephrolog y)on 02-24-2023 Established Visit (Nephrology) Diagnoses/Problems GERD (gastroesophageal reflux disease) (530.81) (K21.9) Hypercholesterolemia (272.0) (E78.00) Hypertension (401.9) (I10) Stage 3b chronic kidney disease (585.3) (N18.32) Patient Discussion/Summary Issues: 1. Chronic kidney disease that is very stable At this time I am going to defer for management to Dr. Ayala. Her management is difficult as she does have hypertension however she has a lot of dizziness lightheadedness shakiness and falls and she has evidence of her blood pressure falling pretty drastically at times She also has major polypharmacy She is on many medications At this time I believe it is safer for 1 person to be managing all of these interactions and if more than 1 is making changes then for her problems can happen quite easily Please call with any further issues or needs Provider Impressions Chronic kidney disease with baseline creatinine 1.1-1.4 since December 2021 Hypertension Seizure disorder Polypharmacy Acid reflux Microalbuminuria Chief Complaint 1 MONTH FUV- CKD, HTN LAB REVIEW History of Present IllnessShe is here for follow-up secondary to chronic kidney disease with a baseline creatinine of 1.1-1.4, history of hypertension with some recent hypotension At her last visit we stopped her vitamin D lisinopril doxazosin and ergocalciferol We also stopped her PPI She has been having her blood pressure checked at the [facility] Her blood pressure is ranging on the high side. She is ranging from about the 150s to the 180s systolically. She has very few blood pressure readings below 140 she does have a few however they are very limited and for the most part she is ranging pretty consistently in the 150s to 170s systolic. Here in the office today her blood pressure was 148/90 Blood work was done on February 20 Her hemoglobin is 13.3 Metabolic panel shows a BUN of 24 creatinine of 1.12 electrolytes look very good and within normal range at this time Magnesium is 1.77 phosphorus 3.2 uric acid 4.3 vitamin D is 44 PTH 35 on February 16 her urinalysis shows positive protein and blood with trace leukocyte esterase She has 245 of albumin Medications are reviewed and include allopurinol amlodipine calcium with vitamin D Depakote famotidine Keppra Lipitor lisinopril magnesium metoprolol potassium She has pain in her left leg Feels dizzy at times Has had falls Painin her arms and fingertips and also chest pain at tiems Pain is pretty much everywhere. Wasin ER with a BP of 258/1502 but in ER was 168/90. No other issues noted. Review of Systems Constitutional: no fever, no chills, no recent weight gain and no recent weight loss. Eyes: no blurred vision and no diplopia. ENT: no hearing loss, no earache, no sore throat, no swollen glands in the neck and no nasal discharge. Cardiovascular: chest pain, but no palpitations and no lower extremity edema. Respiratory: no shortness of breath, no chronic cough and no shortness of breath during exertion. Gastrointestinal: no abdominal pain, no constipation, no heartburn, no vomiting, no bloody stools and no change in bowel movements. Genitourinary: no dysuria and no hematuria. Musculoskeletal: myalgias and limb pain, but no arthralgias. Skin: no rashes and no skin lesions. Neurological: no headaches and no dizziness. Psychiatric: no confusion, no depression and no anxiety. Endocrine: no heat intolerance, no cold intolerance, appetite not increased, no thyroid disorder, no increased urinary frequency and no dry skin. Hematologic/Lymphatic: does not bleed easily and does not bruise easily. All other systems have been reviewed and are negative for complaint. Active Problems Abdominal pain, acute (789.00,338.19) (R10.9) Abdominal pain, acute, right upper quadrant (789.01,338.19) (R10.11) Anxiety (300.00) (F41.9) Back pain (724.5) (M54.9) Bacterial vaginosis (616.10,041.9) (N76.0,B96.89) Body mass index (BMI) of 38.0 to 38.9 in adult (V85.38) (Z68.38) Chronic low back pain (724.2,338.29) (M54.50,G89.29) Colon cancer screening (V76.51) (Z12.11) Compression fracture of T5 vertebra (805.2) (S22.050A) Constipation (564.00) (K59.00) Depression, major, single episode, severe (296.23) (F32.2) Dizziness (780.4) (R42) Encounter for routine checking of intrauterine contraceptive device (IUD) (V25.42) (Z30.431) Excess ear wax (380.4) (H61.20) Fall, subsequent encounter (V58.89,E888.9) (W19.XXXD) Falls (E888.9) (W19.XXXA) Fatty liver (571.8) (K76.0) 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 Normal [employer] Tobacco Screening.on 023 Tobacco use status HS b) No MP-Nephrology- [facility] [place] Wagner Mohinder 3 DO Work Phone: APTTon 02-20-2023 aPTT Coag (Bld) [Time] 33 s Normal 26 - 39 [facility] Comment on above: Result Comment: THE APTT IS NO LONGER USED FOR MONITORING UNFRACTIONATED HEPARIN THERAPY. FOR MONITORING HEPARIN THERAPY, USE THE HEPARIN ASSAY. Performed By: #### A PTT ####[address] [address] Activated Partial Thrombopla stin Timeon 02-20-2023 aPTT Coag (PPP) [Time] 33 s 26 - 39 -Nephrology- [facility] Mohinder 3 DO Work Phone: Comment on above: THE APTT IS NO LONGE R USED FOR MONITORING UNFRACTIONATED HEPARIN THERAPY. FOR MONITORING HEPARIN THERAPY, USE THE HEPARIN ASSAY. BNPon 02-20-2023 Natriuretic peptide B (Bld) [Mass/Vol] 27 pg/mL Normal 0 - 99 [facility] Comment on above: Result Comment: . <1 00 pg/mL - Heart failure [id number] pg/mL - Intermediate probability of acute heart. failure exacerbation. Correlate with clinical. context and patient history. >=300 pg/mL - Heart Failure likely. Correlate with clinical. context and patient history.BNP testing is performed using different testingmethodology at [facility] than at [facility]. Direct result comparisons shouldonly be made within the same method. Performed By: #### B NP2 ####[address] [address] CBC AND DIFFERENTIALon 02-20 % AUTOMATED IMMATURE GRAN 1.0 % High 0.0 - 0.9 [facility] Comment on above: Result Comment: Suze ture Granulocyte Count (IG) includes promyelocytes, myelocytes and metamyelocytes but does not include bands. Percent differential counts (%) should be interpreted in the context of the absolute cell counts (cells/L). Performed By: #### C BCDF ####[address] [address] Basophils (Bld) [#/Vol] 0.02 10*3/uL Normal 0.00 - 0.10 [facility] Comment on above: Performed By: #### C BCDF ####[address] [address] Basophils/100 WBC (Bld) 0.4 % Normal 0.0 - 2.0 [facility] Comment on above: Performed By: #### C BCDF ####[address] [address] Eosinophils (Bld) [#/Vol] 0.11 10*3/uL Normal 0.00 - 0.70 [facility] Comment on above: Performed By: #### C BCDF ####[address] [address] Eosinophils/100 WBC (Bld) 2.2 % Normal 0.0 - 6.0 [facility] Comment on above: Performed By: #### C BCDF ####[address] [address] Erythrocyte distribution width (RBC) [Ratio] 13.5 % Normal 11.5 - 14.5 [facility] Comment on above: Performed By: #### C BCDF ####[address] [address] Hematocrit (Bld) [Volume fraction] 39.4 % Normal 36.0 - 46.0 [facility] Comment on above: Performed By: #### C BCDF ####[address] [address] Hemoglobin (Bld) [Mass/Vol] 13.3 g/dL Normal 12.0 - 16.0 [facility] Comment on above: Performed By: #### C BCDF ####[address] [address] Lymphocytes (Bld) [#/Vol] 1.60 10*3/uL Normal 1.20 - 4.80 [facility] Comment on above: Performed By: #### C BCDF ####[address] [address] Lymphocytes/100 WBC (Bld) 31.4 % Normal 13.0 - 44.0 [facility] Comment on above: Performed By: #### C BCDF ####[address] [address] MCHC (RBC) [Mass/Vol] 33.8 g/dL Normal 32.0 - 36.0 [facility] Comment on above: Performed By: #### C BCDF ####[address] [address] MCV (RBC) [Entitic vol] 89 fL Normal 80 - 100 [facility] Comment on above: Performed By: #### C BCDF ####[address] [address] Monocytes (Bld) [#/Vol] 0.49 10*3/uL Normal 0.10 - 1.00 [facility] Comment on above: Performed By: #### C BCDF ####[address] [address] Monocytes/100 WBC (Bld) 9.6 % Normal 2.0 - 10.0 [facility] Comment on above: Performed By: #### C BCDF ####[address] [address] Neutrophils (Bld) [#/Vol] 2.82 10*3/uL Normal 1.20 - 7.70 [facility] Comment on above: Result Comment: Perc ent differential counts (%) should be interpreted in the context of the absolute cell counts (cells/L). Performed By: #### C BCDF ####[address] [address] Neutrophils/100 WBC (Bld) 55.4 % Normal 40.0 - 80.0 [facility] Comment on above: Performed By: #### C BCDF ####[address] [address] Platelets (Bld) [#/Vol] 112 10*3/uL Low 150 - 450 [facility] Comment on above: Result Comment: Plat elet count may be higher than reported due to presence of PlateletClumps. Performed By: #### C BCDF ####[address] [address] RBC 4.41 x10E12/L Normal 4.00 - 5.20 [facility] Comment on above: Performed By: #### C BCDF ####[address] [address] WBC (Bld) [#/Vol] 5.1 10*3/uL Normal 4.4 - 11.3 [facility] Comment on above: Performed By: #### C BCDF ####[place] [id number] CHEST 1 VIEWon 02-20-2023 CHEST 1 VIEW Normal [facility] COMPREHENSIVE PANELon 2022 Albumin [Mass/Vol] 3.9 g/dL Normal 3.4 - 5.0 [facility] Comment on above: Performed By: #### C MP ####[place] [id number] ALP [Catalytic activity/Vol] 70 U/L Normal 33 - 110 [facility] Comment on above: Performed By: #### C MP ####[address] [address] ALT [Catalytic activity/Vol] 13 U/L Normal 7 - 45 [facility] Comment on above: Result Comment: Marjan ents treated with Sulfasalazine may generate falsely decreased results for ALT. Performed By: #### C MP ####[address] [address] Anion gap [Moles/Vol] 12 mmol/L Normal 10 - 20 [facility] Comment on above: Performed By: #### C MP ####[address] [address] AST [Catalytic activity/Vol] 17 U/L Normal 9 - 39 [facility] Comment on above: Performed By: #### C MP ####[address] [address] Bilirubin [Mass/Vol] 0.3 mg/dL Normal 0.0 - 1.2 [facility] Comment on above: Performed By: #### C MP ####[address] [address] Calcium [Mass/Vol] 9.2 mg/dL Normal 8.6 - 10.3 [facility] Comment on above: Performed By: #### C MP ####[address] [address] Chloride [Moles/Vol] 103 mmol/L Normal 98 - 107 [facility] Comment on above: Performed By: #### C MP ####[address] [address] Creatinine [Mass/Vol] 1.12 mg/dL High 0.50 - 1.05 [facility] Comment on above: Performed By: #### C MP ####[address] [address] GFR/1.73 sq M.predicted among non-blacks MDRD (S/P/Bld) [Vol rate/Area] 60 mL/min/{1.73_m2} Normal >90 [facility] Comment on above: Result Comment: CALC ULATIONS OF ESTIMATED GFR ARE PERFORMED USING THE 2020 CKD-EPI STUDY REFIT EQUATION WITHOUT THE RACE VARIABLE FOR THE IDMS-TRACEABLE CREATININE METHODS.https://jasn.asnjournals.org/content/early/ N.2886199456 Performed By: #### C MP ####[address] [address] Glucose [Mass/Vol] 91 mg/dL Normal 74 - 99 [facility] Comment on above: Performed By: #### C MP ####[address] [address] HCO3 (Bld) [Moles/Vol] 25 mmol/L Normal 21 - 32 [facility] Comment on above: Performed By: #### C MP ####[address] [address] Potassium [Moles/Vol] 4.1 mmol/L Normal 3.5 - 5.3 [facility] Comment on above: Performed By: #### C MP ####[address] [address] Protein [Mass/Vol] 6.4 g/dL Normal 6.4 - 8.2 [facility] Comment on above: Performed By: #### C MP ####[place] [address] [place] [address] Sodium [Moles/Vol] 136 mmol/L Normal 136 - 145 [facility] Comment on above: Performed By: #### C MP ####[place] [address] [place] [address] Urea nitrogen [Mass/Vol] 24 mg/dL High 6 - 23 [facility] Comment on above: Performed By: #### C MP ####[address] [address] Complete Blood Count + Diffe rentialon 02-20-2023 Basophils/100 WBC (Bld) 0.4 % 0.0 - 2.0 [place] [address] DO Work Phone: Erythrocyte distribution width (RBC) [Ratio] 13.5 % See Below [place] [address] DO Work Phone: Comment on above: Reference Range: 11. 5 - 14.5 Hematocrit (Bld) [Volume fraction] 39.4 % See Below [place] [address] DO Work Phone: Comment on above: Reference Range: 36. 0 - 46.0 Hemoglobin (Bld) [Mass/Vol] 13.3 g/dL See Below [place] [address] DO Work Phone: Comment on above: Reference Range: 12. 0 - 16.0 Lymphocytes/100 WBC (Bld) 31.4 % See Below [place] [address] DO Work Phone: Comment on above: Reference Range: 13. 0 - 44.0 MCHC (RBC) [Mass/Vol] 33.8 g/dL See Below [place] [address] DO Work Phone: Comment on above: Reference Range: 32. 0 - 36.0 MCV (RBC) [Entitic vol] 89 fL 80 - 100 [place] [address] DO Work Phone: Monocytes/100 WBC (Bld) 9.6 % 2.0 - 10.0 [place] [address] DO Work Phone: Neutrophils/100 WBC (Bld) 55.4 % See Below [place] [address] DO Work Phone: Comment on above: Reference Range: 40. 0 - 80.0 Platelets (Bld) [#/Vol] 112 10*3/uL below low threshold 150 - 450 [place] [address] DO Work Phone: Comment on above: Platelet count may b e higher than reported due to presence of PlateletClumps. RBC (Bld) [#/Vol] 4.41 {x10E12/L} See Below [place] [address] DO Work Phone: Comment on above: Reference Range: 4.0 0 - 5.20 WBC (Bld) [#/Vol] 5.1 10*3/uL 4.4 - 11.3 [facility] [address] [facility] Work Phone: Complete Blood Count + Differential 0.02 {x10E9/L} See Below [place] [address] DO Work Phone: Comment on above: Reference Range: 0.0 0 - 0.10 Complete Blood Count + Differential 0.11 {x10E9/L} See Below [place] [address] DO Work Phone: Comment on above: Reference Range: 0.0 0 - 0.70 Complete Blood Count + Differential 0.49 {x10E9/L} See Below [place] [address] DO Work Phone: Comment on above: Reference Range: 0.1 0 - 1.00 Complete Blood Count + Differential 1.60 {x10E9/L} See Below [place] [address] DO Work Phone: Comment on above: Reference Range: 1.2 0 - 4.80 Complete Blood Count + Differential 2.82 {x10E9/L} See Below [place] [address] DO Work Phone: Comment on above: Reference Range: 1.2 0 - 7.70 Percent differential counts (%) should be interpreted in the context of the absolute cell counts (cells/L). Complete Blood Count + Differential 2.2 % 0.0 - 6.0 [place] [address] DO Work Phone: Complete Blood Count + Differential 1.0 % above high threshold 0.0 - 0.9 [place] [address] DO Work Phone: Comment on above: Immature Granulocyte Count (IG) includes promyelocytes, myelocytes and metamyelocytes but does not include bands. Percent differential counts (%) should be interpreted in the context of the absolute cell counts (cells/L). D-DIMER, VTE EXCLUSIONon D-DIMER, VTE EXCLUSION <215 Normal < or = 500 [facility] Comment on above: Result Comment: The VTE Exclusion D-Dimer assay is reported in ng/mL Fibrinogen EquivalentUnits (FEU).Per manufacturers instructions for use, a value of less than 500 ng/mL(FEU) may help to exclude DVT or PE in outpatients when the assay is usedwith a clinical pretest probability assessment. (AEMR must utilize anddocument eCalc Wells Score Deep Vein Thrombosis Risk for DVT exclusiononly; Emergency Department should utilize Guidelines for EmergencyDepartment Use of the VTE Exclusion D-Dimer and Clinical Pretest probabilityassessment model for DVT or PE exclusion.) Performed By: #### D IMEX ####[place] [address] Laboratory - Chemistry and C hemistry - challengeon 02-20-2023 Albumin BCP dye [Mass/Vol] 3.9 g/dL 3.4 - 5.0 [place] [address] DO Work Phone: ALP [Catalytic activity/Vol] 70 U/L 33 - 110 [place] [address] DO Work Phone: ALT With P-5'-P [Catalytic activity/Vol] 13 U/L 7 - 45 [place] [address] DO Work Phone: Comment on above: Patients treated wit h Sulfasalazine may generate falsely decreased results for ALT. Anion gap [Moles/Vol] 12 mmol/L 10 - 20 [place] [address] DO Work Phone: AST With P-5'-P [Catalytic activity/Vol] 17 U/L 9 - 39 [place] [address] DO Work Phone: Bilirubin [Mass/Vol] 0.3 mg/dL 0.0 - 1.2 [place] [address] DO Work Phone: Calcium [Mass/Vol] 9.2 mg/dL 8.6 - 10.3 [place] [address] DO Work Phone: Chloride [Moles/Vol] 103 mmol/L 98 - 107 [place] [address] DO Work Phone: CO2 [Moles/Vol] 25 mmol/L 21 - 32 -Nephro [place]Ben[place] [address] DO Work Phone: Creatinine [Mass/Vol] 1.12 mg/dL above high threshold See Below [place] [address] DO Work Phone: Comment on above: Reference Range: 0.5 0 - 1.05 Glucose [Mass/Vol] 91 mg/dL 74 - 99 [place] [address] DO Work Phone: Potassium [Moles/Vol] 4.1 mmol/L 3.5 - 5.3 [place] [address] DO Work Phone: Protein [Mass/Vol] 6.4 g/dL 6.4 - 8.2 [place] [address] DO Work Phone: Sodium [Moles/Vol] 136 mmol/L 136 - 145 [place] [address] DO Work Phone: Urea nitrogen [Mass/Vol] 24 mg/dL above high threshold 6 - 23 [place] [address] DO Work Phone: Laboratory - Coagulationon 0 02-20-2023 INR Coag (PPP) [Relative time] 0.9 {INR} 0.9 - 1.1 [place] [address] DO Work Phone: PT Coag (PPP) [Time] 11.0 s 9.8 - 13.4 -N [place] [address] DO Work Phone: No Panel Informationon 02-20 27 pg/mL 0 - 99 [place] [address] DO Work Phone: Comment on above: . <100 pg/mL - Heart failure [id number] pg/mL - Intermediate probability of acute heart. failure exacerbation. Correlate with clinical. context and patient history. >=300 pg/mL - Heart Failure likely. Correlate with clinical. context and patient history.BNP testing is performed using different testing methodology at [facility] than at other [facility]. Direct result comparisons should only be made within the same method. 60 {mL/min/1.73m2} >90 [place] [address] DO Work Phone: Comment on above: CALCULATIONS OF FRIEDA MATED GFR ARE PERFORMED USING THE 2020 CKD-EPI STUDY REFIT EQUATION WITHOUT THE RACE VARIABLE FOR THE IDMS-TRACEABLE CREATININE METHODS.https://jasn.asnjournals.org/content/early/ N.2556627334 <215 < or = 500 MP-Nephrology- [facility] Mohinder 3 DO Work Phone: Comment on above: The VTE Exclusion D- Dimer assay is reported in ng/mL Fibrinogen Equivalent Units (FEU). Per manufacturers instructions for use, a value of less than 500 ng/mL (FEU) may help to exclude DVT or PE in outpatients when the assay is used with a clinical pretest probability assessment. ([facility]EMR must utilize and document eCalc Wells Score Deep Vein Thrombosis Risk for DVT exclusion only; Emergency Department should utilize Guidelines for Emergency Department Use of the VTE Exclusion D-Dimer and Clinical Pretest probability assessment model for DVT or PE exclusion.) PT/INRon 02-20-2023 PT Coag (PPP) [Time] 11.0 s Normal 9.8 - 13.4 [facility] Comment on above: Performed By: #### P TINR ####[place] [address] PT, INR 0.9 Normal 0.9 - 1.1 [facility] Comment on above: Performed By: #### P TINR ####[address] [address] Provider Note - ED v3on Provider Note - ED v3 Normal [facility] Radiologyon 02-20-2023 XR Chest Single view Normal [facility] DO Work Phone: Risk Screen - Adult Emergenc yon 02-20-2023 Risk Screen - Adult Emergency Normal [facility] TROPONIN I, HIGH SENSITIVITY on 02-20-2023 TROPONIN I, HIGH SENSITIVITY Canceled Normal [facility] Comment on above: Order Comment: TEST TROPONIN I, HIGH SENSITIVITY WAS CANCELLED, 02/20/2023 14:10 not neededper Result Comment: .Les s than 99th percentile of normal range cutoff-Female and children under 18 years old <14 ng/L; Male <21 ng/L: NegativeRepeat testing should be performed if clinically indicated..Female and children under 18 years old 14-50 ng/L; Male 21-50 ng/L:Consistent with possible cardiac damage and possible increased clinicalrisk. Serial measurements may help to assess extent of myocardial damage..>50 ng/L: Consistent with cardiac damage, increased clinical risk andmyocardial infarction. Serial measurements may help assess extent ofmyocardial damage..NOTE: Children less than 1 year old may have higher baseline troponinlevels and results should be interpreted in conjunction with the overallclinical context..NOTE: Troponin I testing is performed using a differenttesting methodology at [facility] than at [facility]. Direct result comparisons should onlybe made within the same method. Performed By: #### T [facility] ####[address] [address] TROPONIN I, HIGH SENSITIVITY 6 ng/L Normal 0 - 13 [facility] Comment on above: Result Comment: .Les s than 99th percentile of normal range cutoff-Female and children under 18 years old <14 ng/L; Male <21 ng/L: NegativeRepeat testing should be performed if clinically indicated..Female and children under 18 years old 14-50 ng/L; Male 21-50 ng/L:Consistent with possible cardiac damage and possible increased clinicalrisk. Serial measurements may help to assess extent of myocardial damage..>50 ng/L: Consistent with cardiac damage, increased clinical risk andmyocardial infarction. Serial measurements may help assess extent ofmyocardial damage..NOTE: Children less than 1 year old may have higher baseline troponinlevels and results should be interpreted in conjunction with the overallclinical context..NOTE: Troponin I testing is performed using a differenttesting methodology at [facility] than at [facility]. Direct result comparisons should onlybe made within the same method. Performed By: #### T [facility] ####[address] [address] TROPONIN I, HIGH SENSITIVITY 6 ng/L Normal 0 - 13 [facility] Comment on above: Result Comment: .Les s than 99th percentile of normal range cutoff-Female and children under 18 years old <14 ng/L; Male <21 ng/L: NegativeRepeat testing should be performed if clinically indicated..Female and children under 18 years old 14-50 ng/L; Male 21-50 ng/L:Consistent with possible cardiac damage and possible increased clinicalrisk. Serial measurements may help to assess extent of myocardial damage..>50 ng/L: Consistent with cardiac damage, increased clinical risk andmyocardial infarction. Serial measurements may help assess extent ofmyocardial damage..NOTE: Children less than 1 year old may have higher baseline troponinlevels and results should be interpreted in conjunction with the overallclinical context..NOTE: Troponin I testing is performed using a differenttesting methodology at [facility]. Direct result comparisons should onlybe made within the same method. Performed By: #### T [facility] ####[place] [id number] [place] [address] Tropinin I.cardiac panel High sensitivity method 6 ng/L 0 - 13 [facility] [employer] Mohinder 3 DO Work Phone: Comment on above: .Less than 99th perc entile of normal range cutoff-Female and children under 18 years old <14 ng/L; Male <21 ng/L: NegativeRepeat testing should be performed if clinically indicated. .Female and children under 18 years old 14-50 ng/L; Male 21-50 ng/L:Consistent with possible cardiac damage and possible increased clinical risk. Serial measurements may help to assess extent of myocardial damage. .>50 ng/L: Consistent with cardiac damage, increased clinical risk andmyocardial infarction. Serial measurements may help assess extent of myocardial damage. . NOTE: Children less than 1 year old may have higher baseline troponin levels and results should be interpreted in conjunction with the overall clinical context. .NOTE: Troponin I testing is performed using a different testing methodology at [facility] than at other [facility]. Direct result comparisons should only be made within the same method. Tropinin I.cardiac panel High sensitivity method 6 ng/L 0 - 13 [facility] [employer] Mohinder 3 DO Work Phone: Comment on above: .Less than 99th perc entile of normal range cutoff-Female and children under 18 years old <14 ng/L; Male <21 ng/L: NegativeRepeat testing should be performed if clinically indicated. .Female and children under 18 years old 14-50 ng/L; Male 21-50 ng/L:Consistent with possible cardiac damage and possible increased clinical risk. Serial measurements may help to assess extent of myocardial damage. .>50 ng/L: Consistent with cardiac damage, increased clinical risk andmyocardial infarction. Serial measurements may help assess extent of myocardial damage. . NOTE: Children less than 1 year old may have higher baseline troponin levels and results should be interpreted in conjunction with the overall clinical context. .NOTE: Troponin I testing is performed using a different testing methodology at [facility] than at other [facility]. Direct result comparisons should only be made within the same method. Triage - EDon 02-20-2023 Triage - ED Normal [facility] PT Progress Noteon 3 PT Progress Note Therapy Diagnosis Assessed Knee pain (719.46) (M25.569) Widebased gait (781.2) (R26.89) Fall, subsequent encounter (V58.89,E888.9) (W19.XXXD) Plan Goals: Goals set and discussed today. Activity Limitation: Improved ABC scale score to 15% to demonstrate increased dynamic balance with transfers and ambulation-ongoing, by week 4 Balance: 5xSTS to 12 seconds to demonstrate increased functional strength to decrease fall risk and ease of dynamic stability with transfers-ongoing, by week 4 Pain: 3/10 R knee pain baseline for ease with sleeping and transfers-PARTIALLY MET, by week 4 Range Of Motion/Joint Mobility: Improved R knee AROM 0-120 deg for ease with ambulation and transfers-ongoing, by week 4 Strength: Improved gross B hip, knee, and ankle strength 5/5 MMT for ease with ambulation and transfers to prevent falls-PARTIALLY MET, by week 4 HEP, Patient will demonstrate compliance in their home exercise program in order to promote independence in self management of functional mobility.-MET, by week 2 Planned interventions include: aquatic therapy, education/instruction, home program, manual therapy, neuromuscular re-education, self care/home management, therapeutic activities and therapeutic exercises. Frequency and duration: 2 time(s) a week, for 4 weeks, for 8 visits. Potential to achieve rehab goals is fair: Continue with gait/strength/mobility to improve ambulation, standing, sleeping. Progress with POC, as tolerated. Assessment Patient tolerated treatment without increased pain. Patient has weak TrA and keeps intact with ther-ex. Patient needing [employer]EL[employer] with noodle to ambulate across pool. Needing one UE support with LE ther-ex and B UE support with 100% unloading. Patient with improved balance/coordination with ambulation and ther-ex. Patient with decreased full body tremors today in pool. Continue with gait/mobility to decrease fall risk. Adult Risk Screening There are no spiritual/cultural practices/values/needs that are important to know Initial Fall Risk Screening: REEMA has fallen in the last 6 months. She has fallen due to 3x. Her fall resulted in the following injury: Cut head open. REEMA has a fear of falling. She needs assistance with . Needs assistance walking in her home. She needs assistance in an unfamiliar setting. The patient is using an assistive device. Fall Risk Screening: Patient is identified as a fall risk. Care Plan: High Risk: Low and Moderate risk interventions plus: ensure patient is escorted at all times, do not leave unattended, inform provider of high risk status, discharge by wheelchair or escort assistance, room location, sitter, pre and post sedation/procedure standards, supervised toileting. Please identify location of pain: R knee anterior/posterior. Pain Quality: aching and stabbing. The pain makes it hard for the patient to do these things: walking, sleep and self-care (bathing, dressing, eating). Living Will. Living Will: No living will on file. Healthcare POA: Health care proxy on file. Declaration of Mental Health Treatment: No mental health treatment on file. Depression/Suicide Screening: During the past 2 weeks, the patient felt down, depressed or hopeless. During the past 2 weeks, the patient felt little interest or pleasure in doing things. PHQ-9 performed by PCP last visit 12/15/22 Insurance Insurance reviewed Visit number: 8 Authorization not required after evaluation Insurance: Medicaid (med necessity) Evaluating therapist: Trice Tejada, PT, DPT PT dx: M25.569, R26.89 Med dx: W19.XXXD Precautions:High fall d/t gait abnormalities Onset Date: 2022 Subjective Patient reports:. Patient reports no falls and no to all covid questions. Patient reports pain of 6/10 B knee. Post aquatics states 0/10 B knee pain. Precautions: seizures. PMHx:. Treatment Time in clinic started at 10:45 am Time in clinic ended at 11:30 am Total time in clinic is 45 minutes. Total timed code time is 40 minutes. Therapeutic Activity (99685):. HEP and POC review Education on RW height and safety with transfers Ambulation throughout clinic with CGA and w/c follow. Aquatic Therapy (50677): timed minutes 40, units 3 . Patient enter/exits poll with pool chair Patient needing one noodle to ambulate across pool 3 laps Standing heel raises x 10 Standing squats x 10 Standing hip abd/add x 10 Alt. december Steps x 10 Patient needing to lean against [pool wall for UE Paddles UE PADDLES x 20 ea. L2 P Flex/ext, abd/add, push/pull, H. abd/add 100% UNLOADING 1 noodle Bike 5' Hip Abd/add 5' Hang 5' Free hanging with noodle, kicking B LE's. 'Scores and Scales' Signatures Electronically signed by : Pippa Freeman, IDENTIFICATION AND RECORDS COMMANDER; Feb 19 2023 11:33AM EST (Author) Electronically signed by : Trice Tejada, PT; Mar 03 2023 5:38PM EST Normal Touchworks PARATHYROID HORMONE,INTACTon 02-17-2023 PARATHYROID HORMONE,INTACT 35.4 pg/mL Normal 18.5 - 88.0 [facility] Comment on above: Performed By: #### P TH #### [facility] [address] [place] [address] ALBUMIN, URINE SPOTon 2022 ALBUMIN,URINE 383.6 mg/L Normal Not Established [facility] Comment on above: Performed By: #### A LBSP #### [facility] [address] 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 [address] CREATININE,URINE 156.0 mg/dL Normal 20.0 - 320.0 [facility] Comment on above: Performed By: #### A LBSP #### [facility] [address] [place] [address] COMPREHENSIVE PANELon 2022 Albumin [Mass/Vol] 4.0 g/dL Normal 3.4 - 5.0 [facility] [place] Comment on above: Performed By: #### C MP #### [address] [address] ALP [Catalytic activity/Vol] 65 U/L Normal 33 - 110 [facility] Comment on above: Performed By: #### C MP #### [address] [address] ALT [Catalytic activity/Vol] 15 U/L Normal 7 - 45 [facility] Comment on above: Result Comment: Marjan ents treated with Sulfasalazine may generate falsely decreased results for ALT. Performed By: #### C MP #### [address] [address] Anion gap [Moles/Vol] 11 mmol/L Normal 10 - 20 [facility] Comment on above: Performed By: #### C MP #### [address] [address] AST [Catalytic activity/Vol] 19 U/L Normal 9 - 39 [facility] Comment on above: Performed By: #### C MP #### [address] [address] Bilirubin [Mass/Vol] 0.4 mg/dL Normal 0.0 - 1.2 [facility] Comment on above: Performed By: #### C MP #### [address] [address] Calcium [Mass/Vol] 9.5 mg/dL Normal 8.6 - 10.3 [facility] [place] Comment on above: Performed By: #### C MP #### [address] [address] Chloride [Moles/Vol] 101 mmol/L Normal 98 - 107 [facility] Comment on above: Performed By: #### C MP #### [address] [address] Creatinine [Mass/Vol] 1.22 mg/dL High 0.50 - 1.05 [facility] Comment on above: Performed By: #### C MP #### [address] [address] GFR/1.73 sq M.predicted among non-blacks MDRD (S/P/Bld) [Vol rate/Area] 54 mL/min/{1.73_m2} Abnormal >90 [facility] Comment on above: Result Comment: CALC ULATIONS OF ESTIMATED GFR ARE PERFORMED USING THE 2020 CKD-EPI STUDY REFIT EQUATION WITHOUT THE RACE VARIABLE FOR THE IDMS-TRACEABLE CREATININE METHODS. https://jasn.asnjournals.org/content/early//ASN.446205 5615 Performed By: #### C MP #### [address] [address] Glucose [Mass/Vol] 83 mg/dL Normal 74 - 99 [facility] [place] Comment on above: Performed By: #### C MP #### [address] [address] HCO3 (Bld) [Moles/Vol] 27 mmol/L Normal 21 - 32 [facility] Comment on above: Performed By: #### C MP #### [address] [address] Potassium [Moles/Vol] 4.3 mmol/L Normal 3.5 - 5.3 [facility] Comment on above: Performed By: #### C MP #### [address] [address] Protein [Mass/Vol] 6.8 g/dL Normal 6.4 - 8.2 [facility] [place] Comment on above: Performed By: #### C MP #### [address] [address] Sodium [Moles/Vol] 135 mmol/L Low 136 - 145 [facility] [place] Comment on above: Performed By: #### C MP #### [address] [address] Urea nitrogen [Mass/Vol] 31 mg/dL High 6 - 23 [facility] Comment on above: Performed By: #### C MP #### [address] [address] Laboratory - Chemistry and C hemistry - challengeon 02-16-2023 Albumin BCP dye [Mass/Vol] 4.0 g/dL 3.4 - 5.0 [place] [address] DO Work Phone: Albumin Ql (U) 383.6 mg/L See Below [facility] Work Phone: Comment on above: Reference Range: Not Established Albumin/Creatinine DL <= 20 mg/L (U) [Mass ratio] 245.9 {ug/mg_crt} above high threshold 0.0 - 30.0 [facility] Work Phone: ALP [Catalytic activity/Vol] 65 U/L 33 - 110 [place] [address] DO Work Phone: ALT With P-5'-P [Catalytic activity/Vol] 15 U/L 7 - 45 [place] [address] DO Work Phone: Comment on above: Patients treated wit h Sulfasalazine may generate falsely decreased results for ALT. Anion gap [Moles/Vol] 11 mmol/L 10 - 20 [place] [address] DO Work Phone: AST With P-5'-P [Catalytic activity/Vol] 19 U/L 9 - 39 [place] [address] DO Work Phone: Bilirubin [Mass/Vol] 0.4 mg/dL 0.0 - 1.2 [facility] [place] [address] DO Work Phone: Calcium [Mass/Vol] 9.5 mg/dL 8.6 - 10.3 -[place]rology[place] [address] DO Work Phone: Chloride [Moles/Vol] 101 mmol/L 98 - 107 [facility] [place] [address] DO Work Phone: CO2 [Moles/Vol] 27 mmol/L 21 - 32 -Nephro logy- [facility] 3 DO Work Phone: Creatinine (U) [Mass/Vol] 156.0 mg/dL See Below [facility] [place] Work Phone: Comment on above: Reference Range: 20. 0 - 320.0 Creatinine [Mass/Vol] 1.22 mg/dL above high threshold See Below [facility] 3 DO Work Phone: Comment on above: Reference Range: 0.5 0 - 1.05 Glucose [Mass/Vol] 83 mg/dL 74 - 99 [facility] 3 DO Work Phone: Potassium [Moles/Vol] 4.3 mmol/L 3.5 - 5.3 [facility] [place] [address] DO Work Phone: Protein [Mass/Vol] 6.8 g/dL 6.4 - 8.2 [facility] 3 DO Work Phone: Sodium [Moles/Vol] 135 mmol/L below low threshold 136 - 145 [place] [address] DO Work Phone: Urea nitrogen [Mass/Vol] 31 mg/dL above high threshold 6 - 23 [facility] 3 DO Work Phone: MAGNESIUMon 02-16-2023 Magnesium [Mass/Vol] 1.77 mg/dL Normal 1.60 - 2.40 [facility] Comment on above: Performed By: #### M G #### [address] [address] Magnesium, Serumon Magnesium [Mass/Vol] 1.77 mg/dL See Below -N ephFormerly [facility] 3 DO Work Phone: Comment on above: Reference Range: 1.6 0 - 2.40 No Panel Informationon 02-16 54 {mL/min/1.73m2} Abnormal >90 [facility] 3 DO Work Phone: Comment on above: CALCULATIONS OF FRIEDA MATED GFR ARE PERFORMED USING THE 2020 CKD-EPI STUDY REFIT EQUATION WITHOUT THE RACE VARIABLE FOR THE IDMS-TRACEABLE CREATININE METHODS.https://jasn.asnjournals.org/content/early/ N.0150294519 PHOSPHORUSon 02-16-2023 Phosphate [Mass/Vol] 3.2 mg/dL Normal 2.5 - 4.9 [facility] Comment on above: Result Comment: The performance characteristics of phosphorus testing in heparinized plasma have been validated by the individual laboratory site where testing is performed. Testing on heparinized plasma is not approved by the FDA; however, such approval is not necessary. Performed By: #### P HOS #### [address] [address] Parathormone Intact, Serumon 02-16-2023 Parathyrin.intact [Mass/Vol] 35.4 pg/mL See Below [facility] Work Phone: Comment on above: Reference Range: 18. 5 - 88.0 Phosphorus, Serumon 02-17-20 23 Phosphate [Mass/Vol] 3.2 mg/dL 2.5 - 4.9 MP[facility]N [facility]phrology- [facility] 3 DO Work Phone: Comment on above: The performance shira acteristics of phosphorus testing in heparinized plasma have been validated by the individual laboratory site where testing is performed. Testing on heparinized plasma is not approved by the FDA; however, such approval is not necessary. UA MICROSCOPICon 02-16-2023 BACTERIA 1+ /HPF Abnormal [facility] Comment on above: Performed By: #### U AMIC #### [address] [address] HYALINE CAST 1+ /LPF Abnormal [facility] Comment on above: Performed By: #### U AMIC #### [address] [address] Mucus Ql (Urine sed) 1+ /LPF Normal [facility] Comment on above: Performed By: #### U AMIC #### [address] [address] RBC 1 /HPF Normal 0-5 [facility] Comment on above: Performed By: #### U AMIC #### [address] [address] SQUAMOUS EPITH. CELLS 24 /HPF Normal [facility] Comment on above: Performed By: #### U AMIC #### [address] [address] WBC 4 /HPF Normal 0-5 [facility] Comment on above: Performed By: #### U AMIC #### [address] [address] URIC ACIDon 02-16-2023 Urate [Mass/Vol] 4.3 mg/dL Normal 2.3 - 6.7 [facility] Comment on above: Result Comment: Nathalie puncture immediately after or during the administration of Metamizole may lead to falsely low results. Testing should be performed immediately prior to Metamizole dosing. Performed By: #### P TH #### [facility] [address] [place] [address] URINALYSISon 02-16-2023 Appearance (U) HAZY Normal CLEAR [facility] Comment on above: Performed By: #### U A #### [address] [address] Bilirubin Ql (U) Negative Normal NEGATIVE [facility] Comment on above: Performed By: #### U A #### [address] [address] Hemoglobin Ql (U) MODERATE(2+) Abnormal NEGATIVE [facility] Comment on above: Performed By: #### U A #### [address] [address] Nitrite Ql (U) Negative Normal NEGATIVE [facility] Comment on above: Performed By: #### U A #### [address] [address] Protein Ql (U) 100(2+) Abnormal NEGATIVE [facility] Comment on above: Performed By: #### U A #### [address] [address] Specific gravity (U) [Rel density] 1.021 Normal 1.005 - 1.035 [facility] Comment on above: Performed By: #### U A #### [address] [address] Urobilinogen (U) [Mass/Vol] mg/dL Normal 0.0 - 1.9 [facility] Comment on above: Performed By: #### U A #### [address] [address] Uric Acid, Serumon 3 Urate [Mass/Vol] 4.3 mg/dL 2.3 - 6.7 MP-Nephr ology- [facility] Mohinder 3 DO Work Phone: Comment on above: Venipuncture immedia tely after or during the administration of Metamizole may lead to falsely low results. Testing should be performed immediately prior to Metamizole dosing. Urinalysison 02-16-2023 Color (U) Yellow Normal STRAW,YELLOW MP-Nephrolog y- [facility] Mohinder 3 DO Work Phone: Comment on above: Reference Range: STR AW,YELLOW Performed By: #### U A #### [address] [address] Glucose Ql (U) Negative Normal NEGATIVE MP-Nephrol ogy- [facility] Mohinder 3 DO Work Phone: Comment on above: Performed By: #### U A #### [address] [address] Ketones Ql (U) Negative Normal NEGATIVE MP-Nephrol og- [facility] Mohinder 3 DO Work Phone: Comment on above: Performed By: #### U A #### [address] [address] Leukocyte esterase Test strip Ql (U) TRACE Abnormal NEGATIVE [place] [address] DO Work Phone: Comment on above: Performed By: #### U A #### [address] [address] pH (U) 5.0 [pH] Normal 5.0 - 8.0 [facility] 3 DO Work Phone: Comment on above: Performed By: #### U A #### [address] [address] Protein (U) [Mass/Vol] 100(2+) Abnormal NEGATIVE [place] [address] DO Work Phone: RBC (U) [#/Vol] MODERATE(2+) Abnormal NEGATIVE -Neph [facility] [place]utyJason [place] [address] DO Work Phone: Specific gravity (U) [Rel density] 1.021 1 See Below [facility]ph[facility] [address] DO Work Phone: Comment on above: Reference Range: 1.0 05 - 1.035 Urinalysis Negative NEGATIVE [place] [address] DO Work Phone: Urinalysis <2.0 0.0 - 1.9 [facility] 3 DO Work Phone: Urinalysis HAZY CLEAR [facility]ITAL[facility]phrologyJason [place] [address] DO Work Phone: Urinalysis, Microscopicon Hyaline casts LM Ql (Urine sed) 1+ Abnormal [place] [address] DO Work Phone: Urinalysis, Microscopic 1+ Abnormal [place] [address] DO Work Phone: Urinalysis, Microscopic 24 {/HPF} [facility] 3 DO Work Phone: Urinalysis, Microscopic 1 {/HPF} 0-5 [facility] 3 DO Work Phone: Urinalysis, Microscopic 4 {/HPF} 0-5 [place] [address] DO Work Phone: VITAMIN D, 25-HYDROXYon 05-0 VITAMIN D, 25-HYDROXY 44 ng/mL Normal [facility] Comment on above: Result Comment: . DEFICIENCY: < 20 NG/ML INSUFFICIENCY: 20-29 NG/ML SUFFICIENCY: 30-100 NG/ML THIS ASSAY ACCURATELY QUANTIFIES THE SUM OF VITAMIN D3, 25-HYDROXY AND VIT D2,25-HYDROXY. Performed By: #### V TDOH #### [place] [address] Vitamin D 25-Hydroxyon 02-16 25-hydroxyvitamin D3 [Mass/Vol] 44 ng/mL [place] [address] DO Work Phone: Comment on above: .DEFICIENCY: < 20 NG /MLINSUFFICIENCY: 20-29 NG/MLSUFFICIENCY: 30-100 NG/MLTHIS ASSAY ACCURATELY QUANTIFIES THE SUM OFVITAMIN D3, 25-HYDROXY AND VIT D2,25-HYDROXY. PT Progress Noteon 3 PT Progress Note Therapy Diagnosis Assessed Fall, subsequent encounter (V58.89,E888.9) (W19.XXXD) Knee pain (719.46) (M25.569) Widebased gait (781.2) (R26.89) Plan Goals: Goals set and discussed today. Activity Limitation: Improved ABC scale score to 15% to demonstrate increased dynamic balance with transfers and ambulation-ongoing, by week 4 Balance: 5xSTS to 12 seconds to demonstrate increased functional strength to decrease fall risk and ease of dynamic stability with transfers-ongoing, by week 4 Pain: 3/10 R knee pain baseline for ease with sleeping and transfers-PARTIALLY MET, by week 4 Range Of Motion/Joint Mobility: Improved R knee AROM 0-120 deg for ease with ambulation and transfers-ongoing, by week 4 Strength: Improved gross B hip, knee, and ankle strength 5/5 MMT for ease with ambulation and transfers to prevent falls-PARTIALLY MET, by week 4 HEP, Patient will demonstrate compliance in their home exercise program in order to promote independence in self management of functional mobility.-MET, by week 2 Planned interventions include: aquatic therapy, education/instruction, home program, manual therapy, neuromuscular re-education, self care/home management, therapeutic activities and therapeutic exercises. Frequency and duration: 2 time(s) a week, for 4 weeks, for 8 visits. Potential to achieve rehab goals is fair: Continue with balance/gait to improve sleep, standing, ambulation. Progress with POC, as tolerated. Assessment Patient tolerated treatment without increased pain. Patient enter/exits pool using pool chair. Patient needing one noodle with ENTERPRISE INTEGRATION DEVELOPER to ambulate from pool chair across pool for ambulation. Patient able to perform B LE ther-ex with one UE support and B UE support with 100% unloading. Patient leans against pool wall when performing UE theer-ex for balance control. Continue with gait/mobility to decrease falls and improve mobility. Adult Risk Screening There are no spiritual/cultural practices/values/needs that are important to know Initial Fall Risk Screening: REEMA has fallen in the last 6 months. She has fallen due to 3x. Her fall resulted in the following injury: Cut head open. REEMA has a fear of falling. She needs assistance with . Needs assistance walking in her home. She needs assistance in an unfamiliar setting. The patient is using an assistive device. Fall Risk Screening: Patient is identified as a fall risk. Care Plan: High Risk: Low and Moderate risk interventions plus: ensure patient is escorted at all times, do not leave unattended, inform provider of high risk status, discharge by wheelchair or escort assistance, room location, sitter, pre and post sedation/procedure standards, supervised toileting. Please identify location of pain: R knee anterior/posterior. Pain Quality: aching and stabbing. The pain makes it hard for the patient to do these things: walking, sleep and self-care (bathing, dressing, eating). Living Will. Living Will: No living will on file. Healthcare POA: Health care proxy on file. Declaration of Mental Health Treatment: No mental health treatment on file. Depression/Suicide Screening: During the past 2 weeks, the patient felt down, depressed or hopeless. During the past 2 weeks, the patient felt little interest or pleasure in doing things. PHQ-9 performed by PCP last visit 12/15/22 Insurance Insurance reviewed Visit number: 7 Authorization not required after evaluation Insurance: Medicaid (med necessity) Evaluating therapist: Trice Tejada PT, DPT PT dx: M25.569, R26.89 Med dx: W19.XXXD Precautions:High fall d/t gait abnormalities Onset Date: 2022 Subjective Patient reports:. Patient reports no falls and no to all covid questions. Patient reports pain of 5/10 low back and B knees. Post aquatics states pain of 3/10 low back and B knee's. Precautions: seizures. PMHx:. Treatment Time in clinic started at 1:45 pm Time in clinic ended at 2:30 pm Total time in clinic is 45 minutes. Total timed code time is 40 minutes. Therapeutic Activity (19580):. HEP and POC review Education on RW height and safety with transfers Ambulation throughout clinic with CGA and w/c follow. Aquatic Therapy (46208): timed minutes 40, units 3 . Patient enter/exits poll with pool chair Patient needing one noodle to ambulate across pool 3 laps Standing heel raises x 10 Standing squats x 10 Standing hip abd/add x 10 Alt. march Steps x 10 Pat[place] needing to lean against [pool wall for UE Paddles UE PADDLES x 20 ea. Open Flex/ext, abd/add, push/pull, H. abd/add 100% UNLOADING 1 noodle Bike 5' Hip Abd/add 5' Hang 5' Free hanging with noodle, kicking B LE's. 'Scores and Scales' Signatures Electronically signed by : Pippa Freeman IDENTIFICATION AND RECORDS COMMANDER; Feb 15 2023 2:31PM EST (Author) Electronically signed by : Trice Tejada PT; Feb 16 2023 2:43PM EST Normal [facility] PT Progress Noteon 3 PT Progress Note Therapy Diagnosis Assessed Knee pain (719.46) (M25.569) Widebased gait (781.2) (R26.89) Fall, subsequent encounter (V58.89,E888.9) (W19.XXXD) Plan Goals: Goals set and discussed today. Activity Limitation: Improved ABC scale score to 15% to demonstrate increased dynamic balance with transfers and ambulation-ongoing, by week 4 Balance: 5xSTS to 12 seconds to demonstrate increased functional strength to decrease fall risk and ease of dynamic stability with transfers-ongoing, by week 4 Pain: 3/10 R knee pain baseline for ease with sleeping and transfers-PARTIALLY MET, by week 4 Range Of Motion/Joint Mobility: Improved R knee AROM 0-120 deg for ease with ambulation and transfers-ongoing, by week 4 Strength: Improved gross B hip, knee, and ankle strength 5/5 MMT for ease with ambulation and transfers to prevent falls-PARTIALLY MET, by week 4 HEP, Patient will demonstrate compliance in their home exercise program in order to promote independence in self management of functional mobility.-MET, by week 2 Planned interventions include: aquatic therapy, education/instruction, home program, manual therapy, neuromuscular re-education, self care/home management, therapeutic activities and therapeutic exercises. Frequency and duration: 2 time(s) a week, for 4 weeks, for 8 visits. Potential to achieve rehab goals is fair: Continue with ambulation, LE strength, to improve ambulation, standing, sleeping. Progress with POC, as tolerated. Assessment Patient tolerated treatment without increased pain. Patient has weak TrA and attempts to keep intact. Patient needing one noodle to ambulate across pool with ENTERPRISE INTEGRATION DEVELOPER. Patient needing one UE support with SBA to perform LE ther-ex. Patient needing B UE support with 100% unloading. Patient uses pool chair to enter/exit pool. Patient has full body tremors. Continue with LE strength/gait to improve ambulation, standing to decrease fall risk. Adult Risk Screening There are no spiritual/cultural practices/values/needs that are important to know Initial Fall Risk Screening: REEMA has fallen in the last 6 months. She has fallen due to 3x. Her fall resulted in the following injury: Cut head open. REEMA has a fear of falling. She needs assistance with . Needs assistance walking in her home. She needs assistance in an unfamiliar setting. The patient is using an assistive device. Fall Risk Screening: Patient is identified as a fall risk. Care Plan: High Risk: Low and Moderate risk interventions plus: ensure patient is escorted at all times, do not leave unattended, inform provider of high risk status, discharge by wheelchair or escort assistance, room location, sitter, pre and post sedation/procedure standards, supervised toileting. Please identify location of pain: R knee anterior/posterior. Pain Quality: aching and stabbing. The pain makes it hard for the patient to do these things: walking, sleep and self-care (bathing, dressing, eating). Living Will. Living Will: No living will on file. Healthcare POA: Health care proxy on file. Declaration of Mental Health Treatment: No mental health treatment on file. Depression/Suicide Screening: During the past 2 weeks, the patient felt down, depressed or hopeless. During the past 2 weeks, the patient felt little interest or pleasure in doing things. PHQ-9 performed by PCP last visit 12/15/22 Insurance Insurance reviewed Visit number: 6 Authorization not required after evaluation Insurance: Medicaid (med necessity) Evaluating therapist: Trice Tejada, PT, DPT PT dx: M25.569, R26.89 Med dx: W19.XXXD Precautions:High fall d/t gait abnormalities Onset Date: 2022 Subjective Patient reports:. Patient reports no falls and no to all covid questions. Patient reports 3/10 B knees. Post aquatics states 0/10 B knee pain. Precautions: seizures. PMHx:. Treatment Time in clinic started at 7:45 am Time in clinic ended at 8:30 am Total time in clinic is 45 minutes. Total timed code time is 39 minutes. Therapeutic Activity (74671):. HEP and POC review Education on RW height and safety with transfers Ambulation throughout clinic with CGA and w/c follow. Aquatic Therapy (71933): timed minutes 39, units 3 . Not performed this date Patient enter/exits poll with pool chair Patient needing one noodle to ambulate across pool 3 laps Standing heel raises x 10 Standing squats x 10 Standing hip abd/add x 10 Alt. march Steps x 10 Patiet needing to lean against [pool wall for UE Paddles UE PADDLES x 20 ea. Open Flex/ext, abd/add, push/pull, H. abd/add 100% UNLOADING 1 noodle Bike 5' Hip Abd/add 5' Hang 5' Free hanging with noodle, kicking B LE's. 'Scores and Scales' Signatures Electronically signed by : Pippa Freeman IDENTIFICATION AND RECORDS COMMANDER; Feb 12 2023 8:31AM EST (Author) Electronically signed by : Trice Tejada PT; Feb 15 2023 11:33AM EST Normal Touchworks CBC AND DIFFERENTIALon 02-05 % AUTOMATED IMMATURE GRAN Canceled Normal [facility] Comment on above: Order Comment: TEST CBC AND DIFFERENTIAL WAS CANCELLED, 02/05/2023 14:02 Result Comment: Suze ture Granulocyte Count (IG) includes promyelocytes, myelocytes and metamyelocytes but does not include bands. Percent differential counts (%) should be interpreted in the context of the absolute cell counts (cells/L). Performed By: #### C BCDF ####[address] [address] % BASOPHIL Canceled [facility] Comment on above: Order Comment: TEST CBC AND DIFFERENTIAL WAS CANCELLED, 02/05/2023 14:02 Performed By: #### C BCDF ####[address] [address] % EOSINOPHIL Canceled [facility] Comment on above: Order Comment: TEST CBC AND DIFFERENTIAL WAS CANCELLED, 02/05/2023 14:02 Performed By: #### C BCDF ####[address] [address] % LYMPHOCYTE Canceled [facility] Comment on above: Order Comment: TEST CBC AND DIFFERENTIAL WAS CANCELLED, 02/05/2023 14:02 Performed By: #### C BCDF ####[address] [address] % MONOCYTE Canceled [facility] Comment on above: Order Comment: TEST CBC AND DIFFERENTIAL WAS CANCELLED, 02/05/2023 14:02 Performed By: #### C BCDF ####[address] [address] % NEUTROPHIL Canceled [facility] Comment on above: Order Comment: TEST CBC AND DIFFERENTIAL WAS CANCELLED, 02/05/2023 14:02 Performed By: #### C BCDF ####[address] [address] [address] [facility] Comment on above: Order Comment: TEST CBC AND DIFFERENTIAL WAS CANCELLED, 02/05/2023 14:02 Performed By: #### C BCDF ####[place] [id number] DIFFERENTIAL Canceled [facility] Comment on above: Order Comment: TEST CBC AND DIFFERENTIAL WAS CANCELLED, 02/05/2023 14:02 Performed By: #### C BCDF ####[place] [id number] EOSINOPHIL Canceled [facility] Comment on above: Order Comment: TEST CBC AND DIFFERENTIAL WAS CANCELLED, 02/05/2023 14:02 Performed By: #### C BCDF ####[place] [id number] HCT Canceled [facility] Comment on above: Order Comment: TEST CBC AND DIFFERENTIAL WAS CANCELLED, 02/05/2023 14:02 Performed By: #### C BCDF ####[place] [id number] HGB Canceled [facility] Comment on above: Order Comment: TEST CBC AND DIFFERENTIAL WAS CANCELLED, 02/05/2023 14:02 Performed By: #### C BCDF ####[address] [address] [address] [facility] Comment on above: Order Comment: TEST CBC AND DIFFERENTIAL WAS CANCELLED, 02/05/2023 14:02 Performed By: #### C BCDF ####[address] [address] [address] [facility] Comment on above: Order Comment: TEST CBC AND DIFFERENTIAL WAS CANCELLED, 02/05/2023 14:02 Performed By: #### C BCDF ####[place] [id number] MCV Canceled [facility] Comment on above: Order Comment: TEST CBC AND DIFFERENTIAL WAS CANCELLED, 02/05/2023 14:02 Performed By: #### C BCDF ####[place] [id number] MONOCYTE Canceled [facility] Comment on above: Order Comment: TEST CBC AND DIFFERENTIAL WAS CANCELLED, 02/05/2023 14:02 Performed By: #### C BCDF ####[place] [address] [facility] Comment on above: Order Comment: TEST CBC AND DIFFERENTIAL WAS CANCELLED, 02/05/2023 14:02 Result Comment: Perc ent differential counts (%) should be interpreted in the context of the absolute cell counts (cells/L). Performed By: #### C BCDF ####[place] [address] [facility] Comment on above: Order Comment: TEST CBC AND DIFFERENTIAL WAS CANCELLED, 02/05/2023 14:02 Performed By: #### C BCDF ####[place] [address] [facility] Comment on above: Order Comment: TEST CBC AND DIFFERENTIAL WAS CANCELLED, 02/05/2023 14:02 Performed By: #### C BCDF ####[place] [address] RDW-CV [address] [facility] Comment on above: Order Comment: TEST CBC AND DIFFERENTIAL WAS CANCELLED, 02/05/2023 14:02 Performed By: #### C BCDF ####[place] [address] [facility] Comment on above: Order Comment: TEST CBC AND DIFFERENTIAL WAS CANCELLED, 02/05/2023 14:02 Performed By: #### C BCDF ####[place] [id number] Clinic Note - Education Adul ton 02-04-2023 Clinic Note - Education Adult [facility] Note - Intakeon 02-04 Clinic Note - Intake Normal [facility] Note - Heme Onc-Follo w Up Visiton 02-03-2023 Clinic Note - Heme Onc-Follow Up Visit [facility] PT Progress Noteon 3 PT Progress Note Therapy Diagnosis Assessed Knee pain (719.46) (M25.569) Widebased gait (781.2) (R26.89) Fall, subsequent encounter (V58.89,E888.9) (W19.XXXD) Plan Goals: Goals set and discussed today. Activity Limitation: Improved ABC scale score to 15% to demonstrate increased dynamic balance with transfers and ambulation-ongoing, by week 4 Balance: 5xSTS to 12 seconds to demonstrate increased functional strength to decrease fall risk and ease of dynamic stability with transfers-ongoing, by week 4 Pain: 3/10 R knee pain baseline for ease with sleeping and transfers-PARTIALLY MET, by week 4 Range Of Motion/Joint Mobility: Improved R knee AROM 0-120 deg for ease with ambulation and transfers-ongoing, by week 4 Strength: Improved gross B hip, knee, and ankle strength 5/5 MMT for ease with ambulation and transfers to prevent falls-PARTIALLY MET, by week 4 HEP, Patient will demonstrate compliance in their home exercise program in order to promote independence in self management of functional mobility.-MET, by week 2 Planned interventions include: aquatic therapy, education/instruction, home program, manual therapy, neuromuscular re-education, self care/home management, therapeutic activities and therapeutic exercises. Frequency and duration: 2 time(s) a week, for 4 weeks, for 8 visits. Potential to achieve rehab goals is fair: Continue with aquatic therapy with gait training/B LE strengthening as tolerated to improve R knee pain and safety with ambulation and transfers. Assessment Reema Shah is progressing well through their POC addressing knee pain and gait deficits. The pt demonstrates and verbalizes improvements in R knee pain, B hip and R knee musculature strength, and gait biomechanics. This contributes to greater ease with transfers and ambulation however pt is still experiencing difficulty with R knee pain and gait deficits.Patient has attended 5 therapy sessions including initial evaluation with focus of aquatic therapy. She is partially meeting or met all current therapy goals. Largest barrier to treatment has been because of illness as well as transportation concerns. However, given missed appointments, patient has demonstrated improvement in gait/mobility and overall baseline knee pain. The pt will benefit from continued skilled PT services 2x/week for 4 weeks to address the above stated impairments and functional limitations to maximize participation and ease in household and social related activities. Plan to focus on aquatic therapy to offload R knee as well as to promote B LE strength and stability for increase ease of transfers and ambulation. Patient provided information regarding RW height with resources provided to seek out DME that may better suit her height. 4/10 pain at end of session. Pt verbalized understanding and agreement to goals and POC. Thank you for this referral and please call [phone] with any questions or concerns. Adult Risk Screening There are no spiritual/cultural practices/values/needs that are important to know Initial Fall Risk Screening: REEMA has fallen in the last 6 months. She has fallen due to 3x. Her fall resulted in the following injury: Cut head open. REEMA has a fear of falling. She needs assistance with . Needs assistance walking in her home. She needs assistance in an unfamiliar setting. The patient is using an assistive device. Fall Risk Screening: Patient is identified as a fall risk. Care Plan: High Risk: Low and Moderate risk interventions plus: ensure patient is escorted at all times, do not leave unattended, inform provider of high risk status, discharge by wheelchair or escort assistance, room location, sitter, pre and post sedation/procedure standards, supervised toileting. Please identify location of pain: R knee anterior/posterior. Pain Quality: aching and stabbing. The pain makes it hard for the patient to do these things: walking, sleep and self-care (bathing, dressing, eating). Living Will. Living Will: No living will on file. Healthcare POA: Health care proxy on file. Declaration of Mental Health Treatment: No mental health treatment on file. Depression/Suicide Screening: During the past 2 weeks, the patient felt down, depressed or hopeless. During the past 2 weeks, the patient felt little interest or pleasure in doing things. PHQ-9 performed by PCP last visit 12/15/22 Insurance Insurance reviewed Visit number: 5 Authorization not required after evaluation Insurance: Medicaid (med necessity) Evaluating therapist: Trice Tejada, PT, DPT PT dx: M25.569, R26.89 Med dx: W19.XXXD Precautions:High fall d/t gait abnormalities Onset Date: 2022 Subjective Patient reports:. Patient confirmed name and date of this session. Patient reports that she fell 1x since being here last time. Did fall on her head or neck. Said that she was on the floor for fifteen minutes. However, they did have a CAT scan and cleared to return. 4/10 pain of R (more content not included)... Normal [employer] Therapy Re-eval Noteon 01-29 Therapy Re-eval Note Therapy Diagnosis Assessed 1. Knee pain (719.46) (M25.569) 2. Widebased gait (781.2) (R26.89) 3. Fall, subsequent encounter (V58.89,E888.9) (W19.XXXD) Plan Goals: Goals set and discussed today. Activity Limitation: Improved ABC scale score to 15% to demonstrate increased dynamic balance with transfers and ambulation-ongoing, by week 4 Balance: 5xSTS to 12 seconds to demonstrate increased functional strength to decrease fall risk and ease of dynamic stability with transfers-ongoing, by week 4 Pain: 3/10 R knee pain baseline for ease with sleeping and transfers-PARTIALLY MET, by week 4 Range Of Motion/Joint Mobility: Improved R knee AROM 0-120 deg for ease with ambulation and transfers-ongoing, by week 4 Strength: Improved gross B hip, knee, and ankle strength 5/5 MMT for ease with ambulation and transfers to prevent falls-PARTIALLY MET, by week 4 HEP, Patient will demonstrate compliance in their home exercise program in order to promote independence in self management of functional mobility.-MET, by week 2 Planned interventions include: aquatic therapy, education/instruction, home program, manual therapy, neuromuscular re-education, self care/home management, therapeutic activities and therapeutic exercises. Frequency and duration: 2 time(s) a week, for 4 weeks, for 8 visits. Potential to achieve rehab goals is fair: Continue with aquatic therapy with gait training/B LE strengthening as tolerated to improve R knee pain and safety with ambulation and transfers. Assessment Reema Shah is progressing well through their POC addressing knee pain and gait deficits. The pt demonstrates and verbalizes improvements in R knee pain, B hip and R knee musculature strength, and gait biomechanics. This contributes to greater ease with transfers and ambulation however pt is still experiencing difficulty with R knee pain and gait deficits.Patient has attended 5 therapy sessions including initial evaluation with focus of aquatic therapy. She is partially meeting or met all current therapy goals. Largest barrier to treatment has been because of illness as well as transportation concerns. However, given missed appointments, patient has demonstrated improvement in gait/mobility and overall baseline knee pain. The pt will benefit from continued skilled PT services 2x/week for 4 weeks to address the above stated impairments and functional limitations to maximize participation and ease in household and social related activities. Plan to focus on aquatic therapy to offload R knee as well as to promote B LE strength and stability for increase ease of transfers and ambulation. Patient provided information regarding RW height with resources provided to seek out DME that may better suit her height. 4/10 pain at end of session. Pt verbalized understanding and agreement to goals and POC. Thank you for this referral and please call [phone] with any questions or concerns. Adult Risk Screening There are no spiritual/cultural practices/values/needs that are important to know Initial Fall Risk Screening: REEMA has fallen in the last 6 months. She has fallen due to 3x. Her fall resulted in the following injury: Cut head open. REEMA has a fear of falling. She needs assistance with . Needs assistance walking in her home. She needs assistance in an unfamiliar setting. The patient is using an assistive device. Fall Risk Screening: Patient is identified as a fall risk. Care Plan: High Risk: Low and Moderate risk interventions plus: ensure patient is escorted at all times, do not leave unattended, inform provider of high risk status, discharge by wheelchair or escort assistance, room location, sitter, pre and post sedation/procedure standards, supervised toileting. Please identify location of pain: R knee anterior/posterior. Pain Quality: aching and stabbing. The pain makes it hard for the patient to do these things: walking, sleep and self-care (bathing, dressing, eating). Living Will. Living Will: No living will on file. Healthcare POA: Health care proxy on file. Declaration of Mental Health Treatment: No mental health treatment on file. Depression/Suicide Screening: During the past 2 weeks, the patient felt down, depressed or hopeless. During the past 2 weeks, the patient felt little interest or pleasure in doing things. PHQ-9 performed by PCP last visit 12/15/22 Insurance Insurance reviewed Visit number: 5 Authorization not required after evaluation Insurance: Medicaid (med necessity) Evaluating therapist: Trice Tejada, PT, DPT PT dx: M25.569, R26.89 Med dx: W19.XXXD Precautions:High fall d/t gait abnormalities Onset Date: 2022 Subjective Patient reports:. Patient confirmed name and date of this session. Patient reports that she fell 1x since being here last time. Did fall on her head or neck. Said that she was on the floor for fifteen minutes. However, they did have a CAT scan and cleared to return. 01/25 p (more content not included)... Normal Touchworks CBC AND DIFFERENTIALon 01-27 % AUTOMATED IMMATURE GRAN 1.0 % High 0.0 - 0.9 [facility] Comment on above: Result Comment: Suze ture Granulocyte Count (IG) includes promyelocytes, myelocytes and metamyelocytes but does not include bands. Percent differential counts (%) should be interpreted in the context of the absolute cell counts (cells/L). Performed By: #### P TH #### [facility] [address] [place] [address] Basophils (Bld) [#/Vol] 0.02 10*3/uL Normal 0.00 - 0.10 [facility] Comment on above: Performed By: #### P TH #### [facility] [address] [place] [address] Basophils/100 WBC (Bld) 0.4 % Normal 0.0 - 2.0 [facility] Comment on above: Performed By: #### P TH #### [facility] [address] [place] [address] Eosinophils (Bld) [#/Vol] 0.09 10*3/uL Normal 0.00 - 0.70 [facility] Comment on above: Performed By: #### P TH #### [facility] [address] [place] [address] Eosinophils/100 WBC (Bld) 1.7 % Normal 0.0 - 6.0 [facility] Comment on above: Performed By: #### P TH #### [facility] [address] [place] [address] Erythrocyte distribution width (RBC) [Ratio] 13.2 % Normal 11.5 - 14.5 [facility] Comment on above: Performed By: #### P TH #### [facility] [address] [place] [address] Hematocrit (Bld) [Volume fraction] 40.4 % Normal 36.0 - 46.0 [facility] Comment on above: Performed By: #### P TH #### [facility] [address] [place] [address] Hemoglobin (Bld) [Mass/Vol] 13.1 g/dL Normal 12.0 - 16.0 [facility] Comment on above: Performed By: #### P TH #### [facility] [address] [place] [address] Lymphocytes (Bld) [#/Vol] 1.73 10*3/uL Normal 1.20 - 4.80 [facility] Comment on above: Performed By: #### P TH #### [facility] [address] [place] [address] Lymphocytes/100 WBC (Bld) 33.5 % Normal 13.0 - 44.0 [facility] Comment on above: Performed By: #### P TH #### [facility] [address] [place] [address] MCHC (RBC) [Mass/Vol] 32.4 g/dL Normal 32.0 - 36.0 [facility] Comment on above: Performed By: #### P TH #### [facility] [address] [place] [address] MCV (RBC) [Entitic vol] 91 fL Normal 80 - 100 [facility] Comment on above: Performed By: #### P TH #### [facility] [address] [place] [address] Monocytes (Bld) [#/Vol] 0.51 10*3/uL Normal 0.10 - 1.00 [facility] Comment on above: Performed By: #### P TH #### [facility] [address] [place] [address] Monocytes/100 WBC (Bld) 9.9 % Normal 2.0 - 10.0 [facility] Comment on above: Performed By: #### P TH #### [facility] [address] [place] [address] Neutrophils (Bld) [#/Vol] 2.77 10*3/uL Normal 1.20 - 7.70 [facility] Comment on above: Result Comment: Perc ent differential counts (%) should be interpreted in the context of the absolute cell counts (cells/L). Performed By: #### P TH #### [facility] [address] [place] [address] Neutrophils/100 WBC (Bld) 53.5 % Normal 40.0 - 80.0 [facility] Comment on above: Performed By: #### P TH #### [facility] [address] [place] [address] Platelets (Bld) [#/Vol] 125 10*3/uL Low 150 - 450 [facility] Comment on above: Performed By: #### P TH #### [facility] [address] [place] [address] RBC 4.42 x10E12/L Normal 4.00 - 5.20 [facility] Comment on above: Performed By: #### P TH #### [facility] [address] [place] [address] WBC (Bld) [#/Vol] 5.2 10*3/uL Normal 4.4 - 11.3 [facility] [place] Comment on above: Performed By: #### P TH #### [facility] [address] [place] [address] COMPREHENSIVE PANELon 2022 Albumin [Mass/Vol] 4.0 g/dL Normal 3.4 - 5.0 [facility] [place] Comment on above: Performed By: #### P TH #### [facility] [address] [place] [address] ALP [Catalytic activity/Vol] 58 U/L Normal 33 - 110 [facility] Comment on above: Performed By: #### P TH #### [facility] [address] [place] [address] ALT [Catalytic activity/Vol] 20 U/L Normal 7 - 45 [facility] Comment on above: Result Comment: Marjan ents treated with Sulfasalazine may generate falsely decreased results for ALT. Performed By: #### P TH #### [facility] [address] [place] [address] Anion gap [Moles/Vol] 10 mmol/L Normal 10 - 20 [facility] Comment on above: Performed By: #### P TH #### [facility] [address] [place] [address] AST [Catalytic activity/Vol] 24 U/L Normal 9 - 39 [facility] Comment on above: Performed By: #### P TH #### [facility] [address] [place] [address] Bilirubin [Mass/Vol] 0.4 mg/dL Normal 0.0 - 1.2 [facility] Comment on above: Performed By: #### P TH #### [facility] [address] [place] [address] Calcium [Mass/Vol] 9.8 mg/dL Normal 8.6 - 10.3 [facility] [place] Comment on above: Performed By: #### P TH #### [facility] [address] [place] [address] Chloride [Moles/Vol] 101 mmol/L Normal 98 - 107 [facility] Comment on above: Performed By: #### P TH #### [facility] [address] [place] [address] Creatinine [Mass/Vol] 1.27 mg/dL High 0.50 - 1.05 [facility] Comment on above: Performed By: #### P TH #### [facility] [address] [place] [address] GFR/1.73 sq M.predicted among non-blacks MDRD (S/P/Bld) [Vol rate/Area] 52 mL/min/{1.73_m2} Abnormal >90 [facility] Comment on above: Result Comment: CALC ULATIONS OF ESTIMATED GFR ARE PERFORMED USING THE 2021 CKD-EPI STUDY REFIT EQUATION WITHOUT THE RACE VARIABLE FOR THE IDMS-TRACEABLE CREATININE METHODS. https://jasn.asnjournals.org/content//ASN.622297 2290 Performed By: #### P TH #### [facility] [address] [place] [address] Glucose [Mass/Vol] 80 mg/dL Normal 74 - 99 [facility] [place] Comment on above: Performed By: #### P TH #### [facility] [address] [place] [address] HCO3 (Bld) [Moles/Vol] 29 mmol/L Normal 21 - 32 [facility] Comment on above: Performed By: #### P TH #### [facility] [address] [place] [address] Potassium [Moles/Vol] 4.8 mmol/L Normal 3.5 - 5.3 [facility] Comment on above: Performed By: #### P TH #### [facility] [address] [place] [address] Protein [Mass/Vol] 6.3 g/dL Low 6.4 - 8.2 [facility] [place] Comment on above: Performed By: #### P TH #### [facility] [address] [place] [address] Sodium [Moles/Vol] 135 mmol/L Low 136 - 145 [facility] [place] Comment on above: Performed By: #### P TH #### [facility] [address] [place] [address] Urea nitrogen [Mass/Vol] 19 mg/dL Normal 6 - 23 [facility] Comment on above: Performed By: #### P TH #### [facility] [address] [place] [address] Complete Blood Count + Diffe laureen 01-27-2023 Basophils/100 WBC (Bld) 0.4 % 0.0 - 2.0 -Nephrology- [facility] Mohinder 3 DO Work Phone: Erythrocyte distribution width (RBC) [Ratio] 13.2 % See Below [place] [address] DO Work Phone: Comment on above: Reference Range: 11. 5 - 14.5 Hematocrit (Bld) [Volume fraction] 40.4 % See Below [place] [address] DO Work Phone: Comment on above: Reference Range: 36. 0 - 46.0 Hemoglobin (Bld) [Mass/Vol] 13.1 g/dL See Below [place] [address] DO Work Phone: Comment on above: Reference Range: 12. 0 - 16.0 Lymphocytes/100 WBC (Bld) 33.5 % See Below [place] [address] DO Work Phone: Comment on above: Reference Range: 13. 0 - 44.0 MCHC (RBC) [Mass/Vol] 32.4 g/dL See Below [place] [address] DO Work Phone: Comment on above: Reference Range: 32. 0 - 36.0 MCV (RBC) [Entitic vol] 91 fL 80 - 100 [place] [address] DO Work Phone: Monocytes/100 WBC (Bld) 9.9 % 2.0 - 10.0 [place] [address] DO Work Phone: Neutrophils/100 WBC (Bld) 53.5 % See Below [place] [address] DO Work Phone: Comment on above: Reference Range: 40. 0 - 80.0 Platelets (Bld) [#/Vol] 125 10*3/uL below low threshold 150 - 450 [place] [address] DO Work Phone: RBC (Bld) [#/Vol] 4.42 {x10E12/L} See Below [place] [address] DO Work Phone: Comment on above: Reference Range: 4.0 0 - 5.20 WBC (Bld) [#/Vol] 5.2 10*3/uL 4.4 - 11.3 [facility] [address] [facility] Work Phone: Complete Blood Count + Differential 0.02 {x10E9/L} See Below [place] [address] DO Work Phone: Comment on above: Reference Range: 0.0 0 - 0.10 Complete Blood Count + Differential 0.09 {x10E9/L} See Below [place] [address] DO Work Phone: Comment on above: Reference Range: 0.0 0 - 0.70 Complete Blood Count + Differential 0.51 {x10E9/L} See Below [place] [address] DO Work Phone: Comment on above: Reference Range: 0.1 0 - 1.00 Complete Blood Count + Differential 1.73 {x10E9/L} See Below [place] [address] DO Work Phone: Comment on above: Reference Range: 1.2 0 - 4.80 Complete Blood Count + Differential 2.77 {x10E9/L} See Below [place] [address] DO Work Phone: Comment on above: Reference Range: 1.2 0 - 7.70 Percent differential counts (%) should be interpreted in the context of the absolute cell counts (cells/L). Complete Blood Count + Differential 1.7 % 0.0 - 6.0 [place] [address] DO Work Phone: Complete Blood Count + Differential 1.0 % above high threshold 0.0 - 0.9 [place] [address] DO Work Phone: Comment on above: Immature Granulocyte Count (IG) includes promyelocytes, myelocytes and metamyelocytes but does not include bands. Percent differential counts (%) should be interpreted in the context of the absolute cell counts (cells/L). Laboratory - Chemistry and C hemistry - challengeon 01-27-2023 Albumin BCP dye [Mass/Vol] 4.0 g/dL 3.4 - 5.0 [place] [address] DO Work Phone: ALP [Catalytic activity/Vol] 58 U/L 33 - 110 [place] [address] DO Work Phone: ALT With P-5'-P [Catalytic activity/Vol] 20 U/L 7 - 45 [place] [address] DO Work Phone: Comment on above: Patients treated wit h Sulfasalazine may generate falsely decreased results for ALT. Anion gap [Moles/Vol] 10 mmol/L 10 - 20 [place] [address] DO Work Phone: AST With P-5'-P [Catalytic activity/Vol] 24 U/L 9 - 39 [place] [address] DO Work Phone: Bilirubin [Mass/Vol] 0.4 mg/dL 0.0 - 1.2 [facility] [place] [address] DO Work Phone: Calcium [Mass/Vol] 9.8 mg/dL 8.6 - 10.3 -Nep hrologyJason [place] [address] DO Work Phone: Chloride [Moles/Vol] 101 mmol/L 98 - 107 -N [place] [address] DO Work Phone: CO2 [Moles/Vol] 29 mmol/L 21 - 32 -Nephro logyJason [place] [address] DO Work Phone: Creatinine [Mass/Vol] 1.27 mg/dL above high threshold See Below [place] [address] DO Work Phone: Comment on above: Reference Range: 0.5 0 - 1.05 Glucose [Mass/Vol] 80 mg/dL 74 - 99 [facility] 3 DO Work Phone: Potassium [Moles/Vol] 4.8 mmol/L 3.5 - 5.3 [place] [address] DO Work Phone: Protein [Mass/Vol] 6.3 g/dL below low threshold 6.4 - 8.2 [place] [address] DO Work Phone: Sodium [Moles/Vol] 135 mmol/L below low threshold 136 - 145 [place] [address] DO Work Phone: Urea nitrogen [Mass/Vol] 19 mg/dL 6 - 23 [place] [address] DO Work Phone: MAGNESIUMon 01-27-2023 Magnesium [Mass/Vol] 1.85 mg/dL Normal 1.60 - 2.40 [facility] Comment on above: Performed By: #### M G #### [place] [id number] [place] [address] Magnesium, Serumon Magnesium [Mass/Vol] 1.85 mg/dL See Below MP-[place] [address] DO Work Phone: Comment on above: Reference Range: 1.6 0 - 2.40 No Panel Informationon 01-27 52 {mL/min/1.73m2} Abnormal >90 [place] [address] DO Work Phone: Comment on above: CALCULATIONS OF FRIEDA MATED GFR ARE PERFORMED USING THE 2020 CKD-EPI STUDY REFIT EQUATION WITHOUT THE RACE VARIABLE FOR THE IDMS-TRACEABLE CREATININE METHODS.https://jasn.asnjournals.org/content// N.1090422922 VALPROIC ACIDon 01-27-2023 VALPROIC ACID 52 ug/mL Normal 50 - 100 [facility] Comment on above: Performed By: #### P #### [facility] [address] [place] [address] Valproic Acid Level, Serumon 01-27-2023 Valproate [Mass/Vol] 52 ug/mL 50 - 100 MP-N ephrology- [facility] Mohinder 3 DO Work Phone: Initial Visit (Nephrology)on 01-26-2023 Initial Visit (Nephrology) Diagnoses/Problems GERD (gastroesophageal reflux disease) (530.81) (K21.9) Generalized epilepsy (345.90) (G40.309) History of acute renal failure (V13.09) (Z87.448) Hypercholesterolemia (272.0) (E78.00) Hypertension (401.9) (I10) Hypokalemia (276.8) (E87.6) Hypomagnesemia (275.2) (E83.42) Morbid obesity (278.01) (E66.01) Stage 3b chronic kidney disease (585.3) (N18.32) Orders Stop: Omeprazole 20 MG Oral Capsule Delayed Release Albumin, Urine Spot; Status:Active; Requested for:[id number]; Comprehensive Metabolic Panel; Status:Active; Requested for:[id number]; Magnesium, Serum; Status:Active; Requested for:[id number]; Parathormone Intact, Serum; Status:Active; Requested for:[id number]; Phosphorus, Serum; Status:Active; Requested for:[id number]; Uric Acid, Serum; Status:Active; Requested for:[id number]; Urinalysis; Status:Active; Requested for:[id number]; Vitamin D 25-Hydroxy; Status:Active; Requested for:[id number]; Stop: Doxazosin Mesylate 4 MG Oral Tablet Stop: Ergocalciferol 1.25 MG (49661 UT) Oral Capsule Stop: Lisinopril 10 MG Oral Tablet Stop: Vitamin D3 1.25 MG (15000 UT) Oral Capsule Patient Discussion/Summary Plan: 1. Stop Meds as above 2. Check BP daily and record and bring back to next visit 3. Get blood work and urine work before next visit 4. If BP goes up then call Provider Impressions Chronic kidney disease with baseline creatinine 1.1-1.4 since December 2021 Hypertension with hypotension here in the office Seizure disorder Slight hyponatremia Polypharmacy Acid reflux Hx of Hypokalemia dn Hypomagnesemia Chief Complaint [employer]- REFERRED BY RAYNE LIN FOR CKD History of Present IllnessShasta is here for new patient visit Referred secondary to chronic kidney disease My evaluation and plan is communicated back via the electronic medical record Recent blood work was drawn on January 21 Hemoglobin is 12.6 Metabolic panel shows a BUN of 24 creatinine of 1.32 her creatinine has ranged from 1.1 to up to 1.47 and this has been going on since December 2021. She has had multiple blood checks for the last year with kidney function quite stable right around that area. Electrolytes actually look pretty good her sodium is 134 calcium is normal Magnesium is 1.63 in December a urinalysis was done that shows positive protein and blood there was also leukocyte esterase at that time Medications are reviewed and they include allopurinol, amlodipine, calcium and vitamin D, doxazosin famotidine levothyroxine Lipitor lisinopril magnesium metoprolol a PPI potassium She really has polypharmacy She currently resides at the [facility] She has knownshe has kidneyfailure since sshe was 25 y/o. Does not take NSAIDs Does feel dizzy and lightheaded at [facility] Review of Systems Constitutional: no fever, no chills, no recent weight gain and no recent weight loss. Eyes: no blurred vision and no diplopia. ENT: no hearing loss, no earache, no sore throat, no swollen glands in the neck and no nasal discharge. Cardiovascular: no chest pain, no palpitations and no lower extremity edema. Respiratory: no shortness of breath, no chronic cough and no shortness of breath during exertion. Gastrointestinal: heartburn, but no abdominal pain, no constipation, no vomiting, no bloody stools and no change in bowel movements. Genitourinary: no dysuria and no hematuria. Musculoskeletal: no arthralgias and no myalgias. Skin: no rashes and no skin lesions. Neurological: dizziness, but no headaches. Psychiatric: no confusion, no depression and no anxiety. Endocrine: no heat intolerance, no cold intolerance, appetite not increased, no thyroid disorder, no increased urinary frequency and no dry skin. Hematologic/Lymphatic: does not bleed easily and does not bruise easily. All other systems have been reviewed and are negative for complaint. Active Problems Abdominal pain, acute (789.00,338.19) (R10.9) Abdominal pain, acute, right upper quadrant (789.01,338.19) (R10.11) Anxiety (300.00) (F41.9) Back pain (724.5) (M54.9) Bacterial vaginosis (616.10,041.9) (N76.0,B96.89) Body mass index (BMI) of 38.0 to 38.9 in adult (V85.38) (Z68.38) Chronic low back pain (724.2,338.29) (M54.50,G89.29) Colon cancer screening (V76.51) (Z12.11) Compression fracture of T5 vertebra (805.2) (S22.050A) Constipation (564.00) (K59.00) Depression, major, single episode, severe (296.23) (F32.2) Dizziness (780.4) (R42) Encounter for routine checking of intrauterine contraceptive device (IUD) (V25.42) (Z30.431) Excess ear wax (380.4) (H61.20) Fall, subsequent encounter (V58.89,E888.9) (W19.XXXD) Falls (E888.9) (W19.XXXA) Fatty liver (571.8) (K76.0) Generalized epilepsy (345.90) (G40.309) GERD (gastroesophageal reflux disease) (530.81) (K21.9) History of acute renal failure (V13.09) (Z87.448) Hypercholesterolemia (272.0) (E78.00) Hyperglycemia (790.29) (R73.9) Hypertension (401.9) (I10) Hypokalemia (276.8) (E87.6) H (more content not included)... Normal [employer] Screening.on 023 Tobacco use status HS b) No MP-Nephrology- [facility] Mohinder 3 DO Work Phone: CBC AND DIFFERENTIALon 01-21 % AUTOMATED IMMATURE GRAN 3.1 % High 0.0 - 0.9 [facility] Comment on above: Result Comment: Suze ture Granulocyte Count (IG) includes promyelocytes, myelocytes and metamyelocytes but does not include bands. Percent differential counts (%) should be interpreted in the context of the absolute cell counts (cells/L). Performed By: #### C BCDF ####[address] [address] Basophils (Bld) [#/Vol] 0.02 10*3/uL Normal 0.00 - 0.10 [facility] Comment on above: Performed By: #### C BCDF ####[address] [address] Basophils/100 WBC (Bld) 0.4 % Normal 0.0 - 2.0 [facility] Comment on above: Performed By: #### C BCDF ####[address] [address] Eosinophils (Bld) [#/Vol] 0.07 10*3/uL Normal 0.00 - 0.70 [facility] Comment on above: Performed By: #### C BCDF ####[address] [address] Eosinophils/100 WBC (Bld) 1.5 % Normal 0.0 - 6.0 [facility] Comment on above: Performed By: #### C BCDF ####[address] [address] Erythrocyte distribution width (RBC) [Ratio] 12.5 % Normal 11.5 - 14.5 [facility] Comment on above: Performed By: #### C BCDF ####[address] [address] Hematocrit (Bld) [Volume fraction] 38.1 % Normal 36.0 - 46.0 [facility] Comment on above: Performed By: #### C BCDF ####[address] [address] Hemoglobin (Bld) [Mass/Vol] 12.6 g/dL Normal 12.0 - 16.0 [facility] Comment on above: Performed By: #### C BCDF ####[address] [address] Lymphocytes (Bld) [#/Vol] 1.42 10*3/uL Normal 1.20 - 4.80 [facility] Comment on above: Performed By: #### C BCDF ####[address] [address] Lymphocytes/100 WBC (Bld) 31.1 % Normal 13.0 - 44.0 [facility] Comment on above: Performed By: #### C BCDF ####[address] [address] MCHC (RBC) [Mass/Vol] 33.1 g/dL Normal 32.0 - 36.0 [facility] Comment on above: Performed By: #### C BCDF ####[address] [address] MCV (RBC) [Entitic vol] 90 fL Normal 80 - 100 [facility] Comment on above: Performed By: #### C BCDF ####[address] [address] Monocytes (Bld) [#/Vol] 0.44 10*3/uL Normal 0.10 - 1.00 [facility] Comment on above: Performed By: #### C BCDF ####[address] [address] Monocytes/100 WBC (Bld) 9.6 % Normal 2.0 - 10.0 [facility] Comment on above: Performed By: #### C BCDF ####[address] [address] Neutrophils (Bld) [#/Vol] 2.48 10*3/uL Normal 1.20 - 7.70 [facility] Comment on above: Result Comment: Perc ent differential counts (%) should be interpreted in the context of the absolute cell counts (cells/L). Performed By: #### C BCDF ####[address] [address] Neutrophils/100 WBC (Bld) 54.3 % Normal 40.0 - 80.0 [facility] Comment on above: Performed By: #### C BCDF ####[address] [address] Platelets (Bld) [#/Vol] 115 10*3/uL Low 150 - 450 [facility] Comment on above: Performed By: #### C BCDF ####[address] [address] RBC 4.22 x10E12/L Normal 4.00 - 5.20 [facility] Comment on above: Performed By: #### C BCDF ####[address] [address] WBC (Bld) [#/Vol] 4.6 10*3/uL Normal 4.4 - 11.3 [facility] Comment on above: Performed By: #### C BCDF ####[place] [id number] COMPREHENSIVE PANELon 2022 Albumin [Mass/Vol] 3.8 g/dL Normal 3.4 - 5.0 [facility] Comment on above: Performed By: #### C MP ####[address] [address] ALP [Catalytic activity/Vol] 69 U/L Normal 33 - 110 [facility] Comment on above: Performed By: #### C MP ####[address] [address] ALT [Catalytic activity/Vol] 13 U/L Normal 7 - 45 [facility] Comment on above: Result Comment: Marjan ents treated with Sulfasalazine may generate falsely decreased results for ALT. Performed By: #### C MP ####[address] [address] Anion gap [Moles/Vol] 13 mmol/L Normal 10 - 20 [facility] Comment on above: Performed By: #### C MP ####[address] [address] AST [Catalytic activity/Vol] 21 U/L Normal 9 - 39 [facility] Comment on above: Performed By: #### C MP ####[address] [address] Bilirubin [Mass/Vol] 0.4 mg/dL Normal 0.0 - 1.2 [facility] Comment on above: Performed By: #### C MP ####[address] [address] Calcium [Mass/Vol] 9.6 mg/dL Normal 8.6 - 10.3 [facility] Comment on above: Performed By: #### C MP ####[address] [address] Chloride [Moles/Vol] 101 mmol/L Normal 98 - 107 [facility] Comment on above: Performed By: #### C MP ####[address] [address] Creatinine [Mass/Vol] 1.32 mg/dL High 0.50 - 1.05 [facility] Comment on above: Performed By: #### C MP ####[address] [address] GFR/1.73 sq M.predicted among non-blacks MDRD (S/P/Bld) [Vol rate/Area] 49 mL/min/{1.73_m2} Abnormal >90 [facility] Comment on above: Result Comment: CALC ULATIONS OF ESTIMATED GFR ARE PERFORMED USING THE 2020 CKD-EPI STUDY REFIT EQUATION WITHOUT THE RACE VARIABLE FOR THE IDMS-TRACEABLE CREATININE METHODS.https://jasn.asnjournals.org/content/early/ N.5189805234 Performed By: #### C MP ####[address] [address] Glucose [Mass/Vol] 93 mg/dL Normal 74 - 99 [facility] Comment on above: Performed By: #### C MP ####[address] [address] HCO3 (Bld) [Moles/Vol] 24 mmol/L Normal 21 - 32 [facility] Comment on above: Performed By: #### C MP ####[address] [address] Potassium [Moles/Vol] 4.1 mmol/L Normal 3.5 - 5.3 [facility] Comment on above: Performed By: #### C MP ####[address] [address] Protein [Mass/Vol] 6.1 g/dL Low 6.4 - 8.2 [facility] Comment on above: Performed By: #### C MP ####[address] [address] Sodium [Moles/Vol] 134 mmol/L Low 136 - 145 [facility] Comment on above: Performed By: #### C MP ####[address] [address] Urea nitrogen [Mass/Vol] 24 mg/dL High 6 - 23 [facility] Comment on above: Performed By: #### C MP ####[address] [address] [address] C Spine without Contrasto n 01-21-2023 CT Cervical spine WO contrast Normal [facility] Work Phone: CT C-SPINE WO CONTRASTon CT C-SPINE WO CONTRAST Normal [facility] CT HEAD WO CONTRASTon 2022 CT HEAD WO CONTRAST Normal [facility] CT Head without Contraston 0 01-21-2023 CT Head limited WO contrast Normal [facility] Work Phone: CT L Spine without Contrasto n 01-21-2023 CT Lumbar spine limited WO contrast Normal [facility] Work Phone: CT L-SPINE WO CONTRASTon CT L-SPINE WO CONTRAST Normal [facility] Complete Blood Count + Diffe rentialon 01-21-2023 Basophils/100 WBC (Bld) 0.4 % 0.0 - 2.[address] [facility] Work Phone: Erythrocyte distribution width (RBC) [Ratio] 12.5 % See Below [facility] Work Phone: Comment on above: Reference Range: 11. 5 - 14.5 Hematocrit (Bld) [Volume fraction] 38.1 % See Below [facility] Work Phone: Comment on above: Reference Range: 36. 0 - 46.0 Hemoglobin (Bld) [Mass/Vol] 12.6 g/dL See Below [facility] Work Phone: Comment on above: Reference Range: 12. 0 - 16.0 Lymphocytes/100 WBC (Bld) 31.1 % See Below [facility] Work Phone: Comment on above: Reference Range: 13. 0 - 44.0 MCHC (RBC) [Mass/Vol] 33.1 g/dL See Below [facility] Work Phone: Comment on above: Reference Range: 32. 0 - 36.0 MCV (RBC) [Entitic vol] 90 fL 80 - [address] [facility] Work Phone: Monocytes/100 WBC (Bld) 9.6 % 2.0 - 10.[address] [facility] Work Phone: Neutrophils/100 WBC (Bld) 54.3 % See Below [facility] Work Phone: Comment on above: Reference Range: 40. 0 - 80.0 Platelets (Bld) [#/Vol] 115 10*3/uL below low threshold 150 - [address] [facility] Work Phone: RBC (Bld) [#/Vol] 4.22 {x10E12/L} See Below [facility] Work Phone: Comment on above: Reference Range: 4.0 0 - 5.20 WBC (Bld) [#/Vol] 4.6 10*3/uL 4.4 - 11.3 [facility] Work Phone: Complete Blood Count + Differential 0.02 {x10E9/L} See Below [facility] Work Phone: Comment on above: Reference Range: 0.0 0 - 0.10 Complete Blood Count + Differential 0.07 {x10E9/L} See Below [facility] Work Phone: Comment on above: Reference Range: 0.0 0 - 0.70 Complete Blood Count + Differential 0.44 {x10E9/L} See Below [facility] Work Phone: Comment on above: Reference Range: 0.1 0 - 1.00 Complete Blood Count + Differential 1.42 {x10E9/L} See Below [facility] Work Phone: Comment on above: Reference Range: 1.2 0 - 4.80 Complete Blood Count + Differential 2.48 {x10E9/L} See Below [facility] Work Phone: Comment on above: Reference Range: 1.2 0 - 7.70 Percent differential counts (%) should be interpreted in the context of the absolute cell counts (cells/L). Complete Blood Count + Differential 1.5 % 0.0 - 6.[address] [facility] Work Phone: Complete Blood Count + Differential 3.1 % above high threshold 0.0 - 0.[address] [facility] Work Phone: Comment on above: Immature Granulocyte Count (IG) includes promyelocytes, myelocytes and metamyelocytes but does not include bands. Percent differential counts (%) should be interpreted in the context of the absolute cell counts (cells/L). Laboratory - Chemistry and C hemistry - challengeon 01-21-2023 Albumin BCP dye [Mass/Vol] 3.8 g/dL 3.4 - 5.[address] [facility] Work Phone: ALP [Catalytic activity/Vol] 69 U/L 33 - [address] [facility] Work Phone: ALT With P-5'-P [Catalytic activity/Vol] 13 U/L 7 - [address] [facility] Work Phone: Comment on above: Patients treated wit h Sulfasalazine may generate falsely decreased results for ALT. Anion gap [Moles/Vol] 13 mmol/L 10 - 20 [facility] Work Phone: AST With P-5'-P [Catalytic activity/Vol] 21 U/L 9 - [address] [facility] Work Phone: Bilirubin [Mass/Vol] 0.4 mg/dL 0.0 - 1.2 [facility] Work Phone: Calcium [Mass/Vol] 9.6 mg/dL 8.6 - 10.3 [facility] Work Phone: Chloride [Moles/Vol] 101 mmol/L 98 - 107 [facility] Work Phone: CO2 [Moles/Vol] 24 mmol/L 21 - 32 [facility] Work Phone: Creatinine [Mass/Vol] 1.32 mg/dL above high threshold See Below [facility] Work Phone: Comment on above: Reference Range: 0.5 0 - 1.05 Glucose [Mass/Vol] 93 mg/dL 74 - 99 [facility] Work Phone: Potassium [Moles/Vol] 4.1 mmol/L 3.5 - 5.3 [facility] Work Phone: Protein [Mass/Vol] 6.1 g/dL below low threshold 6.4 - 8.[address] [facility] Work Phone: Sodium [Moles/Vol] 134 mmol/L below low threshold 136 - [address] [facility] Work Phone: Urea nitrogen [Mass/Vol] 24 mg/dL above high threshold 6 - [address] [facility] Work Phone: MAGNESIUMon 01-21-2023 Magnesium [Mass/Vol] 1.63 mg/dL Normal 1.60 - 2.40 [facility] Comment on above: Performed By: #### M G ####[place] [id number] Magnesium, Serumon 3 Magnesium [Mass/Vol] 1.63 mg/dL See Below [facility] Work Phone: Comment on above: Reference Range: 1.6 0 - 2.40 No Panel Informationon 01-21 49 {mL/min/1.73m2} Abnormal >90 [facility] Work Phone: Comment on above: CALCULATIONS OF FRIEDA MATED GFR ARE PERFORMED USING THE 2020 CKD-EPI STUDY REFIT EQUATION WITHOUT THE RACE VARIABLE FOR THE IDMS-TRACEABLE CREATININE METHODS.https://jasn.asnjournals.org/content// N.5774979203 Provider Note - ED v3on 04-0 Provider Note - ED v3 Normal [facility] Triage - EDon 01-21-2023 Triage - ED Normal [facility] URINALYSISon 01-21-2023 Appearance (U) [facility]anceled [facility] Comment on above: Order Comment: TEST URINALYSIS WAS CANCELLED, 01/21/2023 20:42 PATIENT DISCHARGED. Performed By: #### U A ####[address] [address] [address] [facility] Comment on above: Order Comment: TEST URINALYSIS WAS CANCELLED, 01/21/2023 20:42 PATIENT DISCHARGED. Result Comment: Conc entrations > = 20 mg/dL of ascorbic acid can be expected to cause stronginterference in the reactions testing for glucose, nitrite and blood. It isrecommended to discontinue Vitamin C administration and retest in 10 hours. Performed By: #### U A ####[address] [address] Bilirubin Ql (U) Canceled [facility] Comment on above: Order Comment: TEST URINALYSIS WAS CANCELLED, 01/21/2023 20:42 PATIENT DISCHARGED. Performed By: #### U A ####[address] [address] Color (U) Canceled [facility] Comment on above: Order Comment: TEST URINALYSIS WAS CANCELLED, 01/21/2023 20:42 PATIENT DISCHARGED. Performed By: #### U A ####[address] [address] Glucose Ql (U) Canceled [facility] Comment on above: Order Comment: TEST URINALYSIS WAS CANCELLED, 01/21/2023 20:42 PATIENT DISCHARGED. Performed By: #### U A ####[address] [address] Hemoglobin Ql (U) Canceled [facility] Comment on above: Order Comment: TEST URINALYSIS WAS CANCELLED, 01/21/2023 20:42 PATIENT DISCHARGED. Performed By: #### U A ####[address] [address] Ketones Ql (U) Canceled [facility] Comment on above: Order Comment: TEST URINALYSIS WAS CANCELLED, 01/21/2023 20:42 PATIENT DISCHARGED. Performed By: #### U A ####[place] [id number] Leukocyte esterase Test strip Ql (U) Canceled [facility] Comment on above: Order Comment: TEST URINALYSIS WAS CANCELLED, 01/21/2023 20:42 PATIENT DISCHARGED. Performed By: #### U A ####[address] [address] Nitrite Ql (U) Canceled [facility] Comment on above: Order Comment: TEST URINALYSIS WAS CANCELLED, 01/21/2023 20:42 PATIENT DISCHARGED. Performed By: #### U A ####[place] [id number] pH Canceled [facility] Comment on above: Order Comment: TEST URINALYSIS WAS CANCELLED, 01/21/2023 20:42 PATIENT DISCHARGED. Performed By: #### U A ####[address] [address] Protein Ql (U) Canceled [facility] Comment on above: Order Comment: TEST URINALYSIS WAS CANCELLED, 01/21/2023 20:42 PATIENT DISCHARGED. Performed By: #### U A ####[address] [address] Specific gravity (U) [Rel density] Canceled [facility] Comment on above: Order Comment: TEST URINALYSIS WAS CANCELLED, 01/21/2023 20:42 PATIENT DISCHARGED. Performed By: #### U A ####[address] [address] [address] [facility] Comment on above: Order Comment: TEST URINALYSIS WAS CANCELLED, 01/21/2023 20:42 PATIENT DISCHARGED. Performed By: #### U A ####[place] [id number] [place] [id number] Established Visit (Orthopaed ic Surgery)on 01-19-2023 Established Visit (Orthopaedic Surgery) Diagnoses/Problems Assessed Pain of left lower extremity (729.5) (M79.605) Leg swelling (729.81) (M79.89) Knee pain (719.46) (M25.569) Orders Leg swelling, Pain of left lower extremity VAS LAB Venous Duplex Ultrasound for DVT; Status:Complete; Done: 19Jan2023 12:42PM Laterality : Left Pain of left lower extremity Xray Knee 1 or 2 View; Status:Complete; Done: 19Jan2023 11:58AM Laterality : Left Radiologist to Determine Optimal Study : Y What are the patient's signs and symptoms? : pain, swelling, no injury Patient Discussion/Summary Patient to have outpatient left knee x-ray complete, duplex ultrasound ordered. The driver material handler from the facility asked if this could be completed next week, I advised that this needs to be done within a 24-hour window to rule out DVT. I wrote in the orders for the facility to help to contact PT regarding additional sessions. If none are available, I am comfortable requesting additional sessions. We discussed Topical pain relief product of choice is IcyHot. Patient has been directed to discuss this with the staff as it is on your medication list. Plan will be to follow-up after completion of therapy to reevaluate knee pain. Virtual visit or phone visit to follow-up ultrasound results. This note was generated using [employer] software. It may contain errors in wording, punctuation or spelling. Provider Impressions Right knee pain was improving with aquatic therapy. Per PT notes, there were several no call no-show visits. Patient states her assisted facility never arranged transportation. We will have patient coordinate with facility and PT regarding any remaining appointments. New onset left leg and knee swelling, duplex ultrasound ordered to rule out DVT. Chief Complaint PATIENT PRESENTS TO THE OFFICE FOR FUV RIGHT KNEE PAIN. SHE RATES HER PAIN AT 3/10 AT THIS TIME. SHE NO LONGER IS RECEIVE THERAPY SERVICES. History of Present Illness Agree with CC as noted, Elle is a pleasant 47-year-old female arrived in wheelchair from assisted living for follow-up of right knee pain. Aquatherapy helped with sx control, states she is no longer being scheduled. [facility] arrange transportation. States PT recommended OT, not clear for what- thinks for upper body strengthening. Takes prn Tylenol with no sx improvement. States no IcyHot provided at facility, no BioFreeze being used with short-term symptom relief. Review of Systems Constitutional: no fever, no chills and not feeling tired. ENT: no recent cough or URI sx, no nosebleeds. Cardiovascular: no chest pain. Respiratory: no shortness of breath and no cough. Gastrointestinal: no abdominal pain, no nausea, no vomiting and no diarrhea. Integumentary: no rashes or skin wounds. Neurological: no headache. Psychiatric: no depression and no sleep disturbances. Endocrine: no muscle weakness and no muscle cramps. Hematologic/Lymphatic: no swollen glands and no tendency for easy bruising. All other systems have been reviewed and are negative other than noted in HPI. *Active Problems Problems Abdominal pain, acute (789.00,338.19) (R10.9) Abdominal pain, acute, right upper quadrant (789.01,338.19) (R10.11) Anxiety (300.00) (F41.9) Bacterial vaginosis (616.10,041.9) (N76.0,B96.89) Body mass index (BMI) of 38.0 to 38.9 in adult (V85.38) (Z68.38) Chronic low back pain (724.2,338.29) (M54.50,G89.29) Colon cancer screening (V76.51) (Z12.11) Compression fracture of T5 vertebra (805.2) (S22.050A) Constipation (564.00) (K59.00) Depression, major, single episode, severe (296.23) (F32.2) Dizziness (780.4) (R42) Encounter for routine checking of intrauterine contraceptive device (IUD) (V25.42) (Z30.431) Excess ear wax (380.4) (H61.20) Fall, subsequent encounter (V58.89,E888.9) (W19.XXXD) Fatty liver (571.8) (K76.0) Generalized epilepsy (345.90) (G40.309) GERD (gastroesophageal reflux disease) (530.81) (K21.9) History of acute renal failure (V13.09) (Z87.448) Hypercholesterolemia (272.0) (E78.00) Hyperglycemia (790.29) (R73.9) Hypertension (401.9) (I10) Hypokalemia (276.8) (E87.6) Hypomagnesemia (275.2) (E83.42) Knee pain (719.46) (M25.569) Medication management (V58.69) (Z79.899) Migraines (346.90) (G43.909) Morbid obesity (278.01) (E66.01) Morbid obesity with BMI of 40.0-44.9, adult (278.01,V85.41) (E66.01,Z68.41) Nasal bone fracture (802.0) (S02.2XXA) Neck pain (723.1) (M54.2) Osteopenia (733.90) (M85.80) Otalgia of both ears (388.70) (H92.03) Otitis media, right (382.9) (H66.91) Palpitation (785.1) (R00.2) Pelvic pain in female (625.9) (R10.2) Scalp hematoma (920) (S00.03XA) Screening for breast cancer (V76.10) (Z12.39) Screening for cervical cancer (V76.2) (Z12.4) Screening for cervical cancer (V76.2) (Z12.4) Seizure (780.39) (R56.9) Sinusitis (473.9) (J32.9) Stage 3b chronic kidney disease (585.3) (N18.32) Status post fall (V15.88) (Z91.81) Thrombocytopenia (287.5) (D69.6) Tinea (110 (more content not included)... Normal [facility] KNEE 1 OR 2 VIEWSon 01-20-20 KNEE 1 OR [address] [facility] Radiologyon 01-19-2023 XR Knee 1 or 2 Views Normal MP-S [facility] 300 Work Phone: VASC LAB Venous Duplex Ultra sound DVTon 01-19-2023 VASC LAB Venous Duplex Ultrasound DVT Normal [facility] VAS LAB Venous Duplex Ultra sound for DVTon 01-19-2023 VASC LAB Venous Duplex Ultrasound for DVT [facility] and [facility] 300 Work Phone: PT Progress Noteon 3 PT Progress Note No report was sent Normal [facility] PT Progress Note No report was sent Normal [facility] Therapy Communicationon 12-18 Therapy Communication Message REEMA EDINGTON no showed today . Patient NS/NC reassessment/treatment this date. Signatures Electronically signed by : Trice Tejada, PT; Jan 15 2023 2:17PM EST (Author) Normal [facility] Therapy Communication Message REEMA EDINGTON no showed today . Signatures Electronically signed by : Pippa Freeman PTA; Jan 15 2023 9:59AM EST (Author) Normal [facility] Clinical Event Note-ED Post Discharge Result Follow Up: Atteon 01-08-2023 Clinical Event Note-ED Post Discharge Result Follow Up: Atte Normal [facility] PT Progress Noteon 3 PT Progress Note No report was sent Normal [facility] Therapy Communicationon 12-17 Therapy Communication Message REEMA EDINGTON canceled today illness. Signatures Electronically signed by : Pippa Freeman PTA; Jan 08 2023 9:17AM EST (Author) Normal [facility] BASIC METABOLIC PANELon 12-17 Anion gap [Moles/Vol] 14 mmol/L Normal 10 - 20 [facility] Comment on above: Performed By: #### B MP ####[address] [address] Calcium [Mass/Vol] 9.0 mg/dL Normal 8.6 - 10.3 [facility] Comment on above: Performed By: #### B MP ####[address] [address] Chloride [Moles/Vol] 100 mmol/L Normal 98 - 107 [facility] Comment on above: Performed By: #### B MP ####[address] [address] Creatinine [Mass/Vol] 1.38 mg/dL High 0.50 - 1.05 [facility] Comment on above: Performed By: #### B MP ####[address] [address] GFR/1.73 sq M.predicted among non-blacks MDRD (S/P/Bld) [Vol rate/Area] 47 mL/min/{1.73_m2} Abnormal >90 [facility] Comment on above: Result Comment: CALC ULATIONS OF ESTIMATED GFR ARE PERFORMED USING THE 2020 CKD-EPI STUDY REFIT EQUATION WITHOUT THE RACE VARIABLE FOR THE IDMS-TRACEABLE CREATININE METHODS.https://jasn.asnjournals.org/content/early/ N.6064677835 Performed By: #### B MP ####[address] [address] Glucose [Mass/Vol] 103 mg/dL High 74 - 99 [facility] Comment on above: Performed By: #### B MP ####[address] [address] HCO3 (Bld) [Moles/Vol] 26 mmol/L Normal 21 - 32 [facility] Comment on above: Performed By: #### B MP ####[address] [address] Potassium [Moles/Vol] 4.3 mmol/L Normal 3.5 - 5.3 [facility] Comment on above: Result Comment: MILD HEMOLYSIS DETECTED. The result may be falsely elevated due tohemolysis or other interferents. Clinical correlation is recommended.Repeat testing may be considered. Performed By: #### B MP ####[address] [address] Sodium [Moles/Vol] 136 mmol/L Normal 136 - 145 [facility] Comment on above: Performed By: #### B MP ####[address] [address] Urea nitrogen [Mass/Vol] 25 mg/dL High 6 - [facility] Comment on above: Performed By: #### B MP ####[address] [address] CBC AND DIFFERENTIALon 01-07 % AUTOMATED IMMATURE GRAN 0.6 % Normal 0.0 - 0.9 [facility] Comment on above: Result Comment: Suze ture Granulocyte Count (IG) includes promyelocytes, myelocytes and metamyelocytes but does not include bands. Percent differential counts (%) should be interpreted in the context of the absolute cell counts (cells/L). Performed By: #### C BCDF ####[place] [id number] Basophils (Bld) [#/Vol] 0.01 10*3/uL Normal 0.00 - 0.10 [facility] Comment on above: Performed By: #### C BCDF ####[place] [id number] Basophils/100 WBC (Bld) 0.1 % Normal 0.0 - 2.0 [facility] Comment on above: Performed By: #### C BCDF ####[place] [id number] Erythrocyte distribution width (RBC) [Ratio] 12.4 % Normal 11.5 - 14.5 [facility] Comment on above: Performed By: #### C BCDF ####[place] [id number] Hematocrit (Bld) [Volume fraction] 39.9 % Normal 36.0 - 46.0 [facility] Comment on above: Performed By: #### C BCDF ####[address] [address] Hemoglobin (Bld) [Mass/Vol] 13.5 g/dL Normal 12.0 - 16.0 [facility] Comment on above: Performed By: #### C BCDF ####[address] [address] Lymphocytes (Bld) [#/Vol] 0.85 10*3/uL Low 1.20 - 4.80 [facility] Comment on above: Performed By: #### C BCDF ####[address] [address] Lymphocytes/100 WBC (Bld) 11.7 % Normal 13.0 - 44.0 [facility] Comment on above: Performed By: #### C BCDF ####[address] [address] MCHC (RBC) [Mass/Vol] 33.8 g/dL Normal 32.0 - 36.0 [facility] Comment on above: Performed By: #### C BCDF ####[address] [address] MCV (RBC) [Entitic vol] 89 fL Normal 80 - 100 [facility] Comment on above: Performed By: #### C BCDF ####[address] [address] Monocytes (Bld) [#/Vol] 0.90 10*3/uL Normal 0.10 - 1.00 [facility] Comment on above: Performed By: #### C BCDF ####[address] [address] Monocytes/100 WBC (Bld) 12.4 % Normal 2.0 - 10.0 [facility] Comment on above: Performed By: #### C BCDF ####[address] [address] Neutrophils (Bld) [#/Vol] 5.44 10*3/uL Normal 1.20 - 7.70 [facility] Comment on above: Result Comment: Perc ent differential counts (%) should be interpreted in the context of the absolute cell counts (cells/L). Performed By: #### C BCDF ####[address] [address] Neutrophils/100 WBC (Bld) 75.2 % Normal 40.0 - 80.0 [facility] Comment on above: Performed By: #### C BCDF ####[address] [address] Platelets (Bld) [#/Vol] 114 10*3/uL Low 150 - 450 [facility] Comment on above: Performed By: #### C BCDF ####[address] [address] RBC 4.47 x10E12/L Normal 4.00 - 5.20 [facility] Comment on above: Performed By: #### C BCDF ####[address] [address] WBC (Bld) [#/Vol] 7.2 10*3/uL Normal 4.4 - 11.3 [facility] Comment on above: Performed By: #### C BCDF ####[address] [address] % AUTOMATED IMMATURE GRAN 3.2 % High 0.0 - 0.9 [facility] Comment on above: Result Comment: Suze ture Granulocyte Count (IG) includes promyelocytes, myelocytes and metamyelocytes but does not include bands. Percent differential counts (%) should be interpreted in the context of the absolute cell counts (cells/L). Performed By: #### C BCDF ####[address] [address] Basophils (Bld) [#/Vol] 0.01 10*3/uL Normal 0.00 - 0.10 [facility] Comment on above: Performed By: #### C BCDF ####[address] [address] Basophils/100 WBC (Bld) 0.2 % Normal 0.0 - 2.0 [facility] Comment on above: Performed By: #### C BCDF ####[address] [address] Eosinophils (Bld) [#/Vol] 0.09 10*3/uL Normal 0.00 - 0.70 [facility] Comment on above: Performed By: #### C BCDF ####[address] [address] Eosinophils/100 WBC (Bld) 1.7 % Normal 0.0 - 6.0 [facility] Comment on above: Performed By: #### C BCDF ####[address] [address] Erythrocyte distribution width (RBC) [Ratio] 12.2 % Normal 11.5 - 14.5 [facility] Comment on above: Performed By: #### C BCDF ####[address] [address] Hematocrit (Bld) [Volume fraction] 40.5 % Normal 36.0 - 46.0 [facility] Comment on above: Performed By: #### C BCDF ####[address] [address] Hemoglobin (Bld) [Mass/Vol] 13.4 g/dL Normal 12.0 - 16.0 [facility] Comment on above: Performed By: #### C BCDF ####[address] [address] Lymphocytes (Bld) [#/Vol] 0.45 10*3/uL Low 1.20 - 4.80 [facility] Comment on above: Performed By: #### C BCDF ####[address] [address] Lymphocytes/100 WBC (Bld) 8.5 % Normal 13.0 - 44.0 [facility] Comment on above: Performed By: #### C BCDF ####[address] [address] MCHC (RBC) [Mass/Vol] 33.1 g/dL Normal 32.0 - 36.0 [facility] Comment on above: Performed By: #### C BCDF ####[address] [address] MCV (RBC) [Entitic vol] 90 fL Normal 80 - 100 [facility] Comment on above: Performed By: #### C BCDF ####[address] [address] Monocytes (Bld) [#/Vol] 0.37 10*3/uL Normal 0.10 - 1.00 [facility] Comment on above: Performed By: #### C BCDF ####[address] [address] Monocytes/100 WBC (Bld) 7.0 % Normal 2.0 - 10.0 [facility] Comment on above: Performed By: #### C BCDF ####[address] [address] Neutrophils (Bld) [#/Vol] 4.19 10*3/uL Normal 1.20 - 7.70 [facility] Comment on above: Result Comment: Perc ent differential counts (%) should be interpreted in the context of the absolute cell counts (cells/L). Performed By: #### C BCDF ####[address] [address] Neutrophils/100 WBC (Bld) 79.4 % Normal 40.0 - 80.0 [facility] Comment on above: Performed By: #### C BCDF ####[address] [address] Platelets (Bld) [#/Vol] 92 10*3/uL Low 150 - 450 [facility] Comment on above: Performed By: #### C BCDF ####[address] [address] RBC 4.48 x10E12/L Normal 4.00 - 5.20 [facility] Comment on above: Performed By: #### C BCDF ####[address] [address] WBC (Bld) [#/Vol] 5.3 10*3/uL Normal 4.4 - 11.3 [facility] Comment on above: Performed By: #### C BCDF ####[address] [address] COMPREHENSIVE PANELon 2022 Albumin [Mass/Vol] 4.2 g/dL Normal 3.4 - 5.0 [facility] Comment on above: Performed By: #### C MP ####[address] [address] ALP [Catalytic activity/Vol] 61 U/L Normal 33 - 110 [facility] Comment on above: Performed By: #### C MP ####[address] [address] ALT [Catalytic activity/Vol] 16 U/L Normal 7 - 45 [facility] Comment on above: Result Comment: Marjan ents treated with Sulfasalazine may generate falsely decreased results for ALT. Performed By: #### C MP ####[address] [address] Anion gap [Moles/Vol] 18 mmol/L Normal 10 - 20 [facility] Comment on above: Performed By: #### C MP ####[address] [address] AST [Catalytic activity/Vol] 25 U/L Normal 9 - 39 [facility] Comment on above: Performed By: #### C MP ####[address] [address] Bilirubin [Mass/Vol] 0.5 mg/dL Normal 0.0 - 1.2 [facility] Comment on above: Performed By: #### C MP ####[address] [address] Calcium [Mass/Vol] 8.7 mg/dL Normal 8.6 - 10.3 [facility] Comment on above: Performed By: #### C MP ####[address] [address] Chloride [Moles/Vol] 98 mmol/L Normal 98 - 107 [facility] Comment on above: Performed By: #### C MP ####[address] [address] Creatinine [Mass/Vol] 1.37 mg/dL High 0.50 - 1.05 [facility] Comment on above: Performed By: #### C MP ####[address] [address] GFR/1.73 sq M.predicted among non-blacks MDRD (S/P/Bld) [Vol rate/Area] 47 mL/min/{1.73_m2} Abnormal >90 [facility] Comment on above: Result Comment: CALC ULATIONS OF ESTIMATED GFR ARE PERFORMED USING THE 2020 CKD-EPI STUDY REFIT EQUATION WITHOUT THE RACE VARIABLE FOR THE IDMS-TRACEABLE CREATININE METHODS.https://jasn.asnjournals.org/content// N.6232734481 Performed By: #### C MP ####[address] [address] Glucose [Mass/Vol] 100 mg/dL High 74 - 99 [facility] Comment on above: Performed By: #### C MP ####[address] [address] HCO3 (Bld) [Moles/Vol] 23 mmol/L Normal 21 - 32 [facility] Comment on above: Performed By: #### C MP ####[address] [address] Potassium [Moles/Vol] 3.7 mmol/L Normal 3.5 - 5.3 [facility] Comment on above: Performed By: #### C MP ####[address] [address] Protein [Mass/Vol] 6.9 g/dL Normal 6.4 - 8.2 [facility] Comment on above: Performed By: #### C MP ####[address] [address] Sodium [Moles/Vol] 135 mmol/L Low 136 - 145 [facility] Comment on above: Performed By: #### C MP ####[address] [address] Urea nitrogen [Mass/Vol] 21 mg/dL Normal 6 - 23 [facility] Comment on above: Performed By: #### C MP ####[address] [address] CORONAVIRUS 2019 BY PCRon SARS-CoV-2 (COVID-19) RNA CHIARA+probe Ql (Unsp spec) Detected Abnormal Not Detected [facility] Comment on above: Result Comment: .Thi s test has received FDA Emergency Use Authorization (EUA) and has beenverified by [facility]. This test is onlyauthorized for the duration of time that circumstances exist to justify theauthorization of the emergency use of in vitro diagnostic tests for thedetection of SARS-CoV-2 virus and/or diagnosis of COVID-19 infection undersection 564(b)(1) of the Act, 21 U.S.C. 360bbb-3(b)(1), unless theauthorization is terminated or revoked sooner.[facility] is certified under CLIA-88 asqualified to perform high complexity testing. Testing is performed in [facility] laboratory located at [address] [place] [address].SARS-CoV-2/Flu/RSV Multiplex Test:Fact sheet for providers: https://www.fda.gov/media/690659/downloadFact sheet for patients: https://www.fda.gov/media/018608/download Performed By: #### C OV19 ####[place] [address] Lab Specimen Source Nasal, Nasopharyngeal Normal [facility] Comment on above: Performed By: #### C OV19 ####[place] [address] Complete Blood Count + Diffe laureen 01-07-2023 Basophils/100 WBC (Bld) 0.1 % 0.0 - 2.0 [facility] [place] Work Phone: Erythrocyte distribution width (RBC) [Ratio] 12.4 % See Below [facility] [place] Work Phone: Comment on above: Reference Range: 11. 5 - 14.5 Hematocrit (Bld) [Volume fraction] 39.9 % [facility] [place] Work Phone: Comment on above: Reference Range: 36. 0 - 46.0 Hemoglobin (Bld) [Mass/Vol] 13.5 g/dL See Below [facility] [place] Work Phone: Comment on above: Reference Range: 12. 0 - 16.0 Lymphocytes/100 WBC (Bld) 11.7 % See Below [facility] Work Phone: Comment on above: Reference Range: 13. 0 - 44.0 MCHC (RBC) [Mass/Vol] 33.8 g/dL See Below [facility] [facility] Work Phone: Comment on above: Reference Range: 32. 0 - 36.0 MCV (RBC) [Entitic vol] 89 fL 80 - 100 [facility] Work Phone: Monocytes/100 WBC (Bld) 12.4 % 2.0 - 10.0 [facility] Work Phone: Neutrophils/100 WBC (Bld) 75.2 % See Below [facility] Work Phone: Comment on above: Reference Range: 40. 0 - 80.0 Platelets (Bld) [#/Vol] 114 10*3/uL below low threshold 150 - 450 [facility] Work Phone: RBC (Bld) [#/Vol] 4.47 {x10E12/L} See Below [facility] [facility] Work Phone: Comment on above: Reference Range: 4.0 0 - 5.20 WBC (Bld) [#/Vol] 7.2 10*3/uL 4.4 - 11.3 [facility] Work Phone: Complete Blood Count + Differential 0.01 {x10E9/L} See Below [facility] [facility] Work Phone: Comment on above: Reference Range: 0.0 0 - 0.10 Complete Blood Count + Differential 0.90 {x10E9/L} See Below [facility] [facility] Work Phone: Comment on above: Reference Range: 0.1 0 - 1.00 Complete Blood Count + Differential 0.85 {x10E9/L} below low threshold See Below [facility] [place] Work Phone: Comment on above: Reference Range: 1.2 0 - 4.80 Complete Blood Count + Differential 5.44 {x10E9/L} See Below [facility] [place] Work Phone: Comment on above: Reference Range: 1.2 0 - 7.70 Percent differential counts (%) should be interpreted in the context of the absolute cell counts (cells/L). Complete Blood Count + Differential 0.6 % 0.0 - 0.9 [facility] [place] Work Phone: Comment on above: Immature Granulocyte Count (IG) includes promyelocytes, myelocytes and metamyelocytes but does not include bands. Percent differential counts (%) should be interpreted in the context of the absolute cell counts (cells/L). Basophils/100 WBC (Bld) 0.2 % 0.0 - 2.0 [facility] [place] Work Phone: Erythrocyte distribution width (RBC) [Ratio] 12.2 % See Below [facility] [place] Work Phone: Comment on above: Reference Range: 11. 5 - 14.5 Hematocrit (Bld) [Volume fraction] 40.5 % See Below [facility] [place] Work Phone: Comment on above: Reference Range: 36. 0 - 46.0 Hemoglobin (Bld) [Mass/Vol] 13.4 g/dL See Below [facility] [place] Work Phone: Comment on above: Reference Range: 12. 0 - 16.0 Lymphocytes/100 WBC (Bld) 8.5 % See Below [facility] Work Phone: Comment on above: Reference Range: 13. 0 - 44.0 MCHC (RBC) [Mass/Vol] 33.1 g/dL See Below [facility] Work Phone: Comment on above: Reference Range: 32. 0 - 36.0 MCV (RBC) [Entitic vol] 90 fL 80 - 100 [facility] Work Phone: Monocytes/100 WBC (Bld) 7.0 % 2.0 - 10.0 [facility] [facility] Work Phone: Neutrophils/100 WBC (Bld) 79.4 % See Below [facility] Work Phone: Comment on above: Reference Range: 40. 0 - 80.0 Platelets (Bld) [#/Vol] 92 10*3/uL below low threshold 150 - 450 [facility] Work Phone: RBC (Bld) [#/Vol] 4.48 {x10E12/L} See Below [facility] [facility] Work Phone: Comment on above: Reference Range: 4.0 0 - 5.20 WBC (Bld) [#/Vol] 5.3 10*3/uL 4.4 - 11.3 [facility] Work Phone: Complete Blood Count + Differential 0.01 {x10E9/L} See Below [facility] Work Phone: Comment on above: Reference Range: 0.0 0 - 0.10 Complete Blood Count + Differential 0.09 {x10E9/L} See Below [facility] Work Phone: Comment on above: Reference Range: 0.0 0 - 0.70 Complete Blood Count + Differential 0.37 {x10E9/L} See Below [facility] Work Phone: Comment on above: Reference Range: 0.1 0 - 1.00 Complete Blood Count + Differential 0.45 {x10E9/L} below low threshold See Below [facility] Work Phone: Comment on above: Reference Range: 1.2 0 - 4.80 Complete Blood Count + Differential 4.19 {x10E9/L} See Below [facility] Work Phone: Comment on above: Reference Range: 1.2 0 - 7.70 Percent differential counts (%) should be interpreted in the context of the absolute cell counts (cells/L). Complete Blood Count + Differential 1.7 % 0.0 - 6.0 [facility] Work Phone: Complete Blood Count + Differential 3.2 % above high threshold 0.0 - 0.9 [facility] Work Phone: Comment on above: Immature Granulocyte Count (IG) includes promyelocytes, myelocytes and metamyelocytes but does not include bands. Percent differential counts (%) should be interpreted in the context of the absolute cell counts (cells/L). Coronavirus 2019 RNA by PCR, Symptomaticon 01-07-2023 Coronavirus 2019 RNA by PCR, Symptomatic Detected Abnormal See Below [facility] Work Phone: Comment on above: SOURCE: Nasal, Nasop haryngealReference Range: Not Detected.This test has received FDA Emergency Use Authorization (EUA) and has been verified by [facility]. This test is only authorized for the duration of time that circumstances exist to justify the authorization of the emergency use of in vitro diagnostic tests for the detection of SARS-CoV-2 virus and/or diagnosis of COVID-19 infection under section 564(b)(1) of the Act, 21 U.S.C. 360bbb-3(b)(1), unless the authorization is terminated or revoked sooner. [facility] is certified under CLIA-88 as qualified to perform high complexity testing. Testing is performed in the [facility] laboratory located at [address] [place] [address].SARS-CoV-2/Flu/RSV Multiplex Test: Fact sheet for providers: https://www.fda.gov/media/974467/downloadFact sheet for patients: https://www.fda.gov/media/317500/download Covid 19 Resultson 3 SARS-CoV-2 (COVID-19) RNA CHIARA+probe Ql (Unsp spec) Normal [facility] HCG,URINEon 01-07-2023 Beta HCG ( test) Ql (U) Negative Normal Negative [facility] Comment on above: Performed By: #### H CGU ####[place] [address] HEPATIC FUNCTION PANELon Albumin [Mass/Vol] 4.2 g/dL Normal 3.4 - 5.0 [facility] Comment on above: Performed By: #### H EPFP ####[place] [address] ALP [Catalytic activity/Vol] 74 U/L Normal 33 - 110 [facility] Comment on above: Performed By: #### H EPFP ####[address] [address] ALT [Catalytic activity/Vol] 14 U/L Normal 7 - 45 [facility] Comment on above: Result Comment: Marjan ents treated with Sulfasalazine may generate falsely decreased results for ALT. Performed By: #### H EPFP ####[address] [address] AST [Catalytic activity/Vol] 20 U/L Normal 9 - 39 [facility] Comment on above: Result Comment: MILD HEMOLYSIS DETECTED. The result may be falsely elevated due tohemolysis or other interferents. Clinical correlation is recommended.Repeat testing may be considered. Performed By: #### H EPFP ####[address] [address] Bilirubin [Mass/Vol] 0.3 mg/dL Normal 0.0 - 1.2 [facility] Comment on above: Performed By: #### H EPFP ####[address] [address] Bilirubin.indirect [Mass/Vol] 0.1 mg/dL Normal 0.0 - 0.3 [facility] Comment on above: Result Comment: MILD HEMOLYSIS DETECTED. The result may be falsely decreased due tohemolysis or other interferents. Clinical correlation is recommended.Repeat testing may be considered. Performed By: #### H EPFP ####[id number] [place] [address] Protein [Mass/Vol] 7.0 g/dL Normal 6.4 - 8.2 [facility] Comment on above: Performed By: #### H EPFP ####[id number] [place] [address] Hepatic Function Panelon Albumin BCP dye [Mass/Vol] 4.2 g/dL 3.4 - 5.0 [facility] [employer] Work Phone: ALP [Catalytic activity/Vol] 74 U/L 33 - 110 [facility] [employer] Work Phone: ALT With P-5'-P [Catalytic activity/Vol] 14 U/L 7 - 45 [facility] [employer] Work Phone: Comment on above: Patients treated wit Sulfasalazine may generate falsely decreased results for ALT. AST With P-5'-P [Catalytic activity/Vol] 20 U/L 9 - 39 [facility] [employer] Work Phone: Comment on above: MILD HEMOLYSIS DETEC KANDACE. The result may be falsely elevated due tohemolysis or other interferents. Clinical correlation is recommended.Repeat testing may be considered. Bilirubin [Mass/Vol] 0.3 mg/dL 0.0 - 1.2 [facility] [employer] Work Phone: Bilirubin.direct [Mass/Vol] 0.1 mg/dL 0.0 - 0.3 [facility] [employer] Work Phone: Comment on above: MILD HEMOLYSIS DETEC KANDACE. The result may be falsely decreased due tohemolysis or other interferents. Clinical correlation is recommended.Repeat testing may be considered. Protein [Mass/Vol] 7.0 g/dL 6.4 - 8.2 [facility] [place] Work Phone: LIPASEon 01-07-2023 Lipase [Catalytic activity/Vol] 64 U/L Normal 9 - 82 [facility] Comment on above: Result Comment: Nathalie puncture immediately after or during the administration of Metamizole may lead to falsely low results. Testing should be performed immediately prior to Metamizole dosing. Y-rwdvih-b-benzoquinone imine (metabolite of Acetaminophen) will generate erroneously low results in samples for patients that have taken toxic doses of acetaminophen. Performed By: #### L IPAS ####[id number] [place] [address] Laboratory - Chemistry and C hemistry - challengeon 01-07-2023 Albumin BCP dye [Mass/Vol] 4.2 g/dL 3.4 - 5.0 [facility] [place] Work Phone: ALP [Catalytic activity/Vol] 61 U/L 33 - 110 [facility] [place] Work Phone: ALT With P-5'-P [Catalytic activity/Vol] 16 U/L 7 - 45 [facility] [place] Work Phone: Comment on above: Patients treated wit h Sulfasalazine may generate falsely decreased results for ALT. Anion gap [Moles/Vol] 18 mmol/L 10 - 20 [facility] [place] Work Phone: AST With P-5'-P [Catalytic activity/Vol] 25 U/L 9 - 39 [facility] [place] Work Phone: Bilirubin [Mass/Vol] 0.5 mg/dL 0.0 - 1.2 [facility] [place] Work Phone: Calcium [Mass/Vol] 8.7 mg/dL 8.6 - 10.3 [facility] [place] Work Phone: Chloride [Moles/Vol] 98 mmol/L 98 - 107 [facility] [place] Work Phone: CO2 [Moles/Vol] 23 mmol/L 21 - 32 [facility] [place] Work Phone: Creatinine [Mass/Vol] 1.37 mg/dL above high threshold See Below [facility] Work Phone: Comment on above: Reference Range: 0.5 0 - 1.05 Glucose [Mass/Vol] 100 mg/dL above high threshold 74 - 99 [facility] [place] Work Phone: Potassium [Moles/Vol] 3.7 mmol/L 3.5 - 5.3 [facility] [place] Work Phone: Protein [Mass/Vol] 6.9 g/dL 6.4 - 8.2 [facility] [place] Work Phone: Sodium [Moles/Vol] 135 mmol/L below low threshold 136 - 145 [facility] [place] Work Phone: Urea nitrogen [Mass/Vol] 21 mg/dL 6 - 23 [facility] [place] Work Phone: Anion gap [Moles/Vol] 14 mmol/L 10 - 20 [facility] [place] Work Phone: Calcium [Mass/Vol] 9.0 mg/dL 8.6 - 10.3 [facility] [place] Work Phone: Chloride [Moles/Vol] 100 mmol/L 98 - 107 [facility] [place] Work Phone: CO2 [Moles/Vol] 26 mmol/L 21 - 32 [facility] [place] Work Phone: Creatinine [Mass/Vol] 1.38 mg/dL above high threshold See Below [facility] [place] Work Phone: Comment on above: Reference Range: 0.5 0 - 1.05 Glucose [Mass/Vol] 103 mg/dL above high threshold 74 - 99 [facility] [place] Work Phone: Potassium [Moles/Vol] 4.3 mmol/L 3.5 - 5.3 [facility] Work Phone: Comment on above: MILD HEMOLYSIS DETEC KANDACE. The result may be falsely elevated due tohemolysis or other interferents. Clinical correlation is recommended.Repeat testing may be considered. Sodium [Moles/Vol] 136 mmol/L 136 - 145 [facility] [place] Work Phone: Urea nitrogen [Mass/Vol] 25 mg/dL above high threshold 6 - 23 [facility] [place] Work Phone: Lipase, Serumon 01-07-2023 Lipase [Catalytic activity/Vol] 64 U/L 9 - 82 [facility] Work Phone: Comment on above: Venipuncture immedia tely after or during the administration of Metamizole may lead to falsely low results. Testing should be performed immediately prior to Metamizole dosing. O-dvrwyp-c-benzoquinone imine (metabolite of Acetaminophen) will generate erroneously low results in samples for patients that have taken toxic doses of acetaminophen. No Panel Informationon 01-07 47 {mL/min/1.73m2} Abnormal >90 [facility] Work Phone: Comment on above: CALCULATIONS OF FRIEDA MATED GFR ARE PERFORMED USING THE 2020 CKD-EPI STUDY REFIT EQUATION WITHOUT THE RACE VARIABLE FOR THE IDMS-TRACEABLE CREATININE METHODS.https://jasn.asnjournals.org/content/early/ N.2427022782 47 {mL/min/1.73m2} Abnormal >90 [facility] Work Phone: Comment on above: CALCULATIONS OF FRIEDA MATED GFR ARE PERFORMED USING THE 2020 CKD-EPI STUDY REFIT EQUATION WITHOUT THE RACE VARIABLE FOR THE IDMS-TRACEABLE CREATININE METHODS.https://jasn.asnjournals.org/content/early/ N.2055238522 Provider Note - ED v3on 12-17 Provider Note - ED v3 Normal [facility] Provider Note - ED v3 Normal [facility] Risk Screen - Adult Emergenc yon 01-07-2023 Risk Screen - Adult Emergency Normal [facility] Risk Screen - Adult Emergency Normal [facility] Triage - EDon 01-07-2023 Triage - ED Normal [facility] Triage - ED Normal [facility] UA MICROSCOPICon 01-07-2023 AMORPHOUS CRYSTAL 1+ /HPF Normal [facility] Comment on above: Performed By: #### U AMIC ####[place] [address] BACTERIA 4+ /HPF Abnormal [facility] Comment on above: Performed By: #### U AMIC ####[place] [address] Mucus Ql (Urine sed) 1+ /LPF Normal [facility] Comment on above: Performed By: #### U AMIC ####[place] [address] RBC 24 /HPF Abnormal 0-5 [facility] Comment on above: Performed By: #### U AMIC ####[place] [address] SQUAMOUS EPITH. CELLS 2 /HPF Normal [facility] Comment on above: Performed By: #### U AMIC ####[place] [address] TRANSITIONAL EPITH.CELLS 1 /HPF Normal [facility] Comment on above: Performed By: #### U AMIC ####[place] [address] WBC 18 /HPF Abnormal 0-5 [facility] Comment on above: Performed By: #### U AMIC ####[address] [address] URINALYSISon 01-07-2023 Appearance (U) HAZY Normal CLEAR [facility] Comment on above: Performed By: #### U A ####[place] [address] Bilirubin Ql (U) Negative Normal NEGATIVE [facility] Comment on above: Performed By: #### U A ####[place] [address] Color (U) Yellow Normal STRAW,YELLOW [facility] Comment on above: Performed By: #### U A ####[place] [address] Glucose Ql (U) Negative Normal NEGATIVE [facility] Comment on above: Performed By: #### U A ####[place] [address] Hemoglobin Ql (U) MODERATE(2+) Abnormal NEGATIVE [facility] Comment on above: Performed By: #### U A ####[place] [address] Ketones Ql (U) Negative Normal NEGATIVE [facility] Comment on above: Performed By: #### U A ####[place] [address] Leukocyte esterase Test strip Ql (U) MODERATE(2+) Abnormal NEGATIVE [facility] Comment on above: Performed By: #### U A ####[place] [address] Nitrite Ql (U) Negative Normal NEGATIVE [facility] Comment on above: Performed By: #### U A ####[place] [address] pH (U) 7.0 [pH] Normal 5.0 - 8.0 [facility] Comment on above: Performed By: #### U A ####[place] [address] Protein Ql (U) 100(2+) Abnormal NEGATIVE [facility] Comment on above: Performed By: #### U A ####[address] [address] Specific gravity (U) [Rel density] 1.016 Normal 1.005 - 1.035 [facility] Comment on above: Performed By: #### U A ####[address] [address] Urobilinogen (U) [Mass/Vol] mg/dL Normal 0.0 - 1.9 [facility] Comment on above: Performed By: #### U A ####[address] [address] Urinalysison 01-07-2023 Color (U) Yellow See Below [facility] [employer] Work Phone: Comment on above: Reference Range: STR AW,YELLOW Glucose Ql (U) Negative NEGATIVE [facility] [employer] Work Phone: Ketones Ql (U) Negative NEGATIVE [facility] [employer] Work Phone: Leukocyte esterase Test strip Ql (U) MODERATE(2+) Abnormal NEGATIVE [facility] [employer] Work Phone: pH (U) 7.0 [pH] 5.0 - 8.0 [facility] [employer] Work Phone: Protein (U) [Mass/Vol] 100(2+) Abnormal NEGATIVE [facility] [employer] Work Phone: RBC (U) [#/Vol] MODERATE(2+) Abnormal NEGATIVE [facility] [employer] Work Phone: Specific gravity (U) [Rel density] 1.016 1 See Below [facility] [employer] Work Phone: Comment on above: Reference Range: 1.0 05 - 1.035 Urinalysis Negative NEGATIVE [facility] [employer] Work Phone: Urinalysis <2.0 0.0 - 1.9 [facility] Work Phone: Urinalysis HAZY CLEAR [facility] Work Phone: Urinalysis, Microscopicon Urinalysis, Microscopic 1+ [facility] Work Phone: Urinalysis, Microscopic 4+ Abnormal [facility] Work Phone: Urinalysis, Microscopic 1 {/HPF} [facility] Work Phone: Urinalysis, Microscopic 2 {/HPF} [facility] Work Phone: Urinalysis, Microscopic 24 {/HPF} Abnormal 0-5 [facility] Work Phone: Urinalysis, Microscopic 18 {/HPF} Abnormal 0-5 [facility] Work Phone: Urine Teston 01-07 HCG ( test) Ql (U) Negative Negative [facility] Work Phone: PT Progress Noteon 3 PT Progress Note Therapy Diagnosis Assessed Knee pain (719.46) (M25.569) Widebased gait (781.2) (R26.89) Fall, subsequent encounter (V58.89,E888.9) (W19.XXXD) Plan Goals: Goals set and discussed today. Activity Limitation: Improved ABC scale score to 15% to demonstrate increased dynamic balance with transfers and ambulation, by week 4 Balance: 5xSTS to 12 seconds to demonstrate increased functional strength to decrease fall risk and ease of dynamic stability with transfers, by week 4 Pain: 3/10 R knee pain baseline for ease with sleeping and transfers, by week 4 Range Of Motion/Joint Mobility: Improved R knee AROM 0-120 deg for ease with ambulation and transfers, by week 4 Strength: Improved gross B hip, knee, and ankle strength 5/5 MMT for ease with ambulation and transfers to prevent falls, by week 4 HEP, Patient will demonstrate compliance in their home exercise program in order to promote independence in self management of functional mobility., by week 2 Planned interventions include: aquatic therapy, education/instruction, home program, manual therapy, neuromuscular re-education, self care/home management, therapeutic activities and therapeutic exercises. Frequency and duration: 2 time(s) a week, for 4 weeks, for 8 visits. Potential to achieve rehab goals is fair: Continue with ther-ex to build strength, improve balance/ambulation to decrease fall risk and decrease falls. Progress with POC, as tolerated. Assessment Patient tolerated treatment without increased pain. Patient needing to use pool chair to enter/exit pool. Would like to attempt steps, but, this therapist does not feel comfortable taking her up/down steps. Patient needing one noodle to ambulate across pool and one UE support to perform LE ther-ex. Patient needing SBA at all times due to full body tremors. Patient able to perform UE ther-ex while leaning against pool wall. Continue with B UE/LE ther-ex to improve balance, ambulation to decrease fall risk and improve ambulation. Adult Risk Screening There are no spiritual/cultural practices/values/needs that are important to know Initial Fall Risk Screening: REEMA has fallen in the last 6 months. She has fallen due to 3x. Her fall resulted in the following injury: Cut head open. REEMA has a fear of falling. She needs assistance with . Needs assistance walking in her home. She needs assistance in an unfamiliar setting. The patient is using an assistive device. Fall Risk Screening: Patient is identified as a fall risk. Care Plan: High Risk: Low and Moderate risk interventions plus: ensure patient is escorted at all times, do not leave unattended, inform provider of high risk status, discharge by wheelchair or escort assistance, room location, sitter, pre and post sedation/procedure standards, supervised toileting. Please identify location of pain: R knee anterior/posterior. Pain Quality: aching and stabbing. The pain makes it hard for the patient to do these things: walking, sleep and self-care (bathing, dressing, eating). Living Will. Living Will: No living will on file. Healthcare POA: Health care proxy on file. Declaration of Mental Health Treatment: No mental health treatment on file. Depression/Suicide Screening: During the past 2 weeks, the patient felt down, depressed or hopeless. During the past 2 weeks, the patient felt little interest or pleasure in doing things. PHQ-9 performed by PCP last visit 12/15/22 Insurance Insurance reviewed Visit number: 4 Authorization not required after evaluation Insurance: Medicaid (med necessity) Evaluating therapist: Trice Tejada PT, DPT PT dx: M25.569, R26.89 Med dx: W19.XXXD Precautions:High fall d/t gait abnormalities Onset Date: 2022 Subjective Patient reports:. Patient reports no falls and no to all covid questions. Patient reports pain of 5/10 right knee and left big toe. Post aquatics states 3/10. Precautions: seizures. PMHx:. Treatment Time in clinic started at 1:45 pm Time in clinic ended at 2:30 pm Total time in clinic is 45 minutes. Total timed code time is 39 minutes. Aquatic Therapy (68566): timed minutes 39, units 3 . Patient enter/exits poll with pool chair Patient needing one noodle to ambulate across pool 3 laps Standing heel raises x 10 Standing squats x 10 Standing hip abd/add x 10 Alt. march Steps x 10 Patiet needing to lean against [pool wall for UE Paddles UE PADDLES x 20 ea. Open Flex/ext, abd/add, push/pull, H. abd/add 100% UNLOADING 1 noodle Bike 5' Hip Abd/add 5' Hang 5' Free hanging with noodle, kicking B LE's. 'Scores and Scales' Signatures Electronically signed by : Pippa Freeman IDENTIFICATION AND RECORDS COMMANDER; Jan 04 2023 6:08PM EST (Author) Electronically signed by : Trice Tejada PT; Jan 07 2023 6:28PM EST Normal [facility] Provider Note - ED v3on - Provider Note - ED v3 Normal [facility] Risk Screen - Adult Emergenc yon 01-01-2023 Risk Screen - Adult Emergency Normal [facility] Triage - EDon 01-01-2023 Triage - ED Normal [facility] PT Progress Noteon 3 PT Progress Note Therapy Diagnosis Assessed Knee pain (719.46) (M25.569) Widebased gait (781.2) (R26.89) Fall, subsequent encounter (V58.89,E888.9) (W19.XXXD) Plan Goals: Goals set and discussed today. Activity Limitation: Improved ABC scale score to 15% to demonstrate increased dynamic balance with transfers and ambulation, by week 4 Balance: 5xSTS to 12 seconds to demonstrate increased functional strength to decrease fall risk and ease of dynamic stability with transfers, by week 4 Pain: 3/10 R knee pain baseline for ease with sleeping and transfers, by week 4 Range Of Motion/Joint Mobility: Improved R knee AROM 0-120 deg for ease with ambulation and transfers, by week 4 Strength: Improved gross B hip, knee, and ankle strength 5/5 MMT for ease with ambulation and transfers to prevent falls, by week 4 HEP, Patient will demonstrate compliance in their home exercise program in order to promote independence in self management of functional mobility., by week 2 Planned interventions include: aquatic therapy, education/instruction, home program, manual therapy, neuromuscular re-education, self care/home management, therapeutic activities and therapeutic exercises. Frequency and duration: 2 time(s) a week, for 4 weeks, for 8 visits. Potential to achieve rehab goals is fair: Continue with ambulation/LE strength to improve balance and ambulation. Progress with POC, as tolerated. Assessment Patient tolerated treatment without pain. Patient needing to use lift chair to enter/exit pool. Needing assist to get off of chair due to short stature. Patient needing one noodle to ambulate across pool for balance. Needing one UE support with LE ther-ex and one noodle for 100% unloading. Added standing hamcurls and canacn to program with good tolerance. Continue with LE strength/ROM and ambulation to increase strength, improve balance/ambulation to decrease fall risk. Adult Risk Screening There are no spiritual/cultural practices/values/needs that are important to know Initial Fall Risk Screening: REEMA has fallen in the last 6 months. She has fallen due to 3x. Her fall resulted in the following injury: Cut head open. REEMA has a fear of falling. She needs assistance with . Needs assistance walking in her home. She needs assistance in an unfamiliar setting. The patient is using an assistive device. Fall Risk Screening: Patient is identified as a fall risk. Care Plan: High Risk: Low and Moderate risk interventions plus: ensure patient is escorted at all times, do not leave unattended, inform provider of high risk status, discharge by wheelchair or escort assistance, room location, sitter, pre and post sedation/procedure standards, supervised toileting. Please identify location of pain: R knee anterior/posterior. Pain Quality: aching and stabbing. The pain makes it hard for the patient to do these things: walking, sleep and self-care (bathing, dressing, eating). Living Will. Living Will: No living will on file. Healthcare POA: Health care proxy on file. Declaration of Mental Health Treatment: No mental health treatment on file. Depression/Suicide Screening: During the past 2 weeks, the patient felt down, depressed or hopeless. During the past 2 weeks, the patient felt little interest or pleasure in doing things. PHQ-9 performed by PCP last visit 12/15/22 Insurance Insurance reviewed Visit number: 3 Authorization not required after evaluation Insurance: Medicaid (med necessity) Evaluating therapist: Trice Tejada, PT, DPT PT dx: M25.569, R26.89 Med dx: W19.XXXD Precautions:High fall d/t gait abnormalities Onset Date: 2022 Subjective Patient reports:. Patient reports no falls and no to all covid questions. Patient reports scrape on bottom of B big toes on ledge of pool. Therapist inspected toes. Patient reports no pain pre aquatics. A small red spot on left bottom toe and patient states hurts on right toe. Post aquatics states no pain. Precautions: seizures. PMHx:. Treatment Time in clinic started at 9:15 am Time in clinic ended at 10:00 am Total time in clinic is 45 minutes. Total timed code time is 39 minutes. Aquatic Therapy (38940): timed minutes 39, units 3 . Patient enter/exits poll with pool chair Patient needing one noodle to ambulate across pool 3 laps Standing heel raises x 10 Standing squats x 10 Standing hip abd/add x 10 Alt. march Steps x 10 Patiet needing to lean against [pool wall for UE Paddles UE PADDLES x 20 ea. Open Flex/ext, abd/add, push/pull, H. abd/add 100% UNLOADING 1 noodle Bike 5' Hip Abd/add 5' Hang 5' Free hanging with noodle, kicking B LE's. 'Scores and Scales' Signatures Electronically signed by : Pippa Freeman IDENTIFICATION AND RECORDS COMMANDER; Dec 30 2022 10:11AM EST (Author) Electronically signed by : Trice Tejada, PT; Jan 07 2023 10:11AM EST Normal [facility] PT Progress Noteon 3 PT Progress Note Therapy Diagnosis Assessed Knee pain (719.46) (M25.569) Widebased gait (781.2) (R26.89) Fall, subsequent encounter (V58.89,E888.9) (W19.XXXD) Plan Goals: Goals set and discussed today. Activity Limitation: Improved ABC scale score to 15% to demonstrate increased dynamic balance with transfers and ambulation, by week 4 Balance: 5xSTS to 12 seconds to demonstrate increased functional strength to decrease fall risk and ease of dynamic stability with transfers, by week 4 Pain: 3/10 R knee pain baseline for ease with sleeping and transfers, by week 4 Range Of Motion/Joint Mobility: Improved R knee AROM 0-120 deg for ease with ambulation and transfers, by week 4 Strength: Improved gross B hip, knee, and ankle strength 5/5 MMT for ease with ambulation and transfers to prevent falls, by week 4 HEP, Patient will demonstrate compliance in their home exercise program in order to promote independence in self management of functional mobility., by week 2 Planned interventions include: aquatic therapy, education/instruction, home program, manual therapy, neuromuscular re-education, self care/home management, therapeutic activities and therapeutic exercises. Frequency and duration: 2 time(s) a week, for 4 weeks, for 8 visits. Potential to achieve rehab goals is fair: Continue with ambulation, LE strength to improve mobility and balance. Progress with POC, as tolerated. Assessment Patient tolerated treatment without increased pain. Patient has weak TrA and keeps intact with ther-ex. Patient needing one UE support at all times, except for free hanging. Patient needing verbal/demo/tactile cues for UE paddles for form. Patient reports feel free in the water. PATIENT NEEDING CHAIR LIFT to enter/exit pool. Patient needing Min A x 1 when transferring from pool chair to wheelchair due to height difference. Continue with ambulation/strength to improve ambulation, to decrease fall risk and improve balance. Adult Risk Screening There are no spiritual/cultural practices/values/needs that are important to know Initial Fall Risk Screening: REEMA has fallen in the last 6 months. She has fallen due to 3x. Her fall resulted in the following injury: Cut head open. REEMA has a fear of falling. She needs assistance with . Needs assistance walking in her home. She needs assistance in an unfamiliar setting. The patient is using an assistive device. Fall Risk Screening: Patient is identified as a fall risk. Care Plan: High Risk: Low and Moderate risk interventions plus: ensure patient is escorted at all times, do not leave unattended, inform provider of high risk status, discharge by wheelchair or escort assistance, room location, sitter, pre and post sedation/procedure standards, supervised toileting. Please identify location of pain: R knee anterior/posterior. Pain Quality: aching and stabbing. The pain makes it hard for the patient to do these things: walking, sleep and self-care (bathing, dressing, eating). Living Will. Living Will: No living will on file. Healthcare POA: Health care proxy on file. Declaration of Mental Health Treatment: No mental health treatment on file. Depression/Suicide Screening: During the past 2 weeks, the patient felt down, depressed or hopeless. During the past 2 weeks, the patient felt little interest or pleasure in doing things. PHQ-9 performed by PCP last visit 12/15/22 Insurance Insurance reviewed Visit number: 2 Authorization not required after evaluation Insurance: Medicaid (med necessity) Evaluating therapist: Trice Tejada, PT, DPT PT dx: M25.569, R26.89 Med dx: W19.XXXD Precautions:High fall d/t gait abnormalities Onset Date: 2022 Subjective Patient reports:. Patient reports no falls and no to all covid questions. Patient reports 8/10 low back. Post aquatics states 6/10 low back pain. Precautions: seizures. PMHx:. Treatment Time in clinic started at 2:30 pm Time in clinic ended at 3:15 pm Total time in clinic is 45 minutes. Total timed code time is 39 minutes. Aquatic Therapy (37399): timed minutes 39, units 3 . Patient enter/exits poll with pool chair Patient needing one noodle to ambulate across pool 3 laps Standing heel raises x 10 Standing squats x 10 Standing hip abd/add x 10 Alt. march Steps x 10 Patiet needing to lean against [pool wall for UE Paddles UE PADDLES x 20 ea. Open Flex/ext, abd/add, push/pull, H. abd/add 100% UNLOADING 1 noodle Bike 5' Hip Abd/add 5' Hang 5' Free hanging with noodle, kicking B LE's. 'Scores and Scales' Signatures Electronically signed by : Pippa Freeman PTA; Dec 28 2022 3:30PM EST (Author) Electronically signed by : Trice Tejada, PT; Dec 29 2022 10:55AM EST (Author) [facility] PT Progress Noteon PT Progress Note No report was sent [facility] Therapy Communicationon 12-16 Therapy Communication Message REEMA SHAH no showed today no show. Signatures Electronically signed by : Pippa Freeman PTA; Dec 25 2022 10:13AM EST (Author) [facility] Established Visit (Orthopaed ic Surgery)on 12-23-2022 Established Visit (Orthopaedic Surgery) Diagnoses/Problems Assessed Back pain (724.5) (M54.9) Falls (E888.9) (W19.XXXA) Chronic low back pain (724.2,338.29) (M54.50,G89.29) Knee pain (719.46) (M25.569) Orders Back pain, Chronic low back pain, Falls Xray Lumbosacral Spine Min 4 View; Status:Hold For - Scheduling; Requested for:23Dec2022; Radiologist to Determine Optimal Study : Y What are the patient's signs and symptoms? : low back pain for years, hx multiple falls, unsteady gait, frequent muscle spasms Back pain, Falls Pain Management Referral Evaluation and Treatment Evaluate AND Treat Status: Hold For - Scheduling Requested for: 23Dec2022 Patient Discussion/Summary Follow-up here after PT is complete to recheck the right knee. I am placing pain management referral per patient request for T-spine pain from injury 1 year ago and LS-spine pain on chronic basis. Patient with history of multiple falls and seizure disorder. Patient is requesting cortisone injection to her back. She has never been evaluated for that in the past. Outpatient LS-spine x-rays ordered at today's visit to be completed on outpatient basis. Patient to discuss IcyHot with her facility as I provided a written order at the last visit here, unfortunately mainly able to print that note at today's visit due to IT issues today with the EHR. We reviewed topical pain relief creams for symptom control, Tylenol on a as needed basis and use of the hinged knee brace for weightbearing activity on as needed basis. I did advise patient to take her knee brace to the PT eval visit after she completes her aquatic therapy. She is in agreement with plan of care. This note was generated using [employer] software. It may contain errors in wording, punctuation or spelling. Received home care PT notes after visit complete, there are 2 entries from 10/27/2022 and 10/29/2022, I will have staff scanned this into the EHR. Note states resident is maintaining and not declining or improving overall. Provider Impressions R knee pain and unsteady, ataxic gait, frequent falls, had PT eval but has not begun sessions Patient requesting cortisone injection for her back, referral to pain management for eval and treat. Baseline LS-spine x-rays for outpatient Chief Complaint PT HERE FOR 6 WEEK FU OF THE R KNEE. LAST XRAY WAS 03/08. STILL HAS OCCASIONAL SHOOTING PAINS THROUGH HER KNEE BUT OVERALL HAS BEEN BETTER. STATES SHE HAS SOME POPPING WITH MOVEMENT BUT DENIES ANY GRINDING. STARTING AQUATIC THERAPY SOON. History of Present Illness Agree with CC as noted, Elle is a pleasant 47-year-old female arrived in wheelchair from assisted living for follow-up of right knee pain. Sometimes knee hurts with bending leg and pushing self up in recliner, BioFreeze helps short term. Tylenol helps with pain control. Has not started PT yet. Filled out paperwork last week. Has not gotten schedule from assisted living that helps set appts and transportation. Patient also inquired about cortisone injection for her back at end of visit, history of low back pain and T-spine fracture November 2021. Review of Systems Constitutional: no fever, no chills and not feeling tired. ENT: no recent cough or URI sx, no nosebleeds. Cardiovascular: no chest pain. Respiratory: no shortness of breath and no cough. Gastrointestinal: no abdominal pain, no nausea, no vomiting and no diarrhea. Integumentary: no rashes or skin wounds. Neurological: no headache. Psychiatric: no depression and no sleep disturbances. Endocrine: no muscle weakness and no muscle cramps. Hematologic/Lymphatic: no swollen glands and no tendency for easy bruising. All other systems have been reviewed and are negative other than noted in HPI. Active Problems Problems Abdominal pain, acute (789.00,338.19) (R10.9) Abdominal pain, acute, right upper quadrant (789.01,338.19) (R10.11) Anxiety (300.00) (F41.9) Back pain (724.5) (M54.9) Bacterial vaginosis (616.10,041.9) (N76.0,B96.89) Body mass index (BMI) of 38.0 to 38.9 in adult (V85.38) (Z68.38) Chronic low back pain (724.2,338.29) (M54.50,G89.29) Colon cancer screening (V76.51) (Z12.11) Compression fracture of T5 vertebra (805.2) (S22.050A) Constipation (564.00) (K59.00) Depression, major, single episode, severe (296.23) (F32.2) Dizziness (780.4) (R42) Encounter for routine checking of intrauterine contraceptive device (IUD) (V25.42) (Z30.431) Excess ear wax (380.4) (H61.20) Fall, subsequent encounter (V58.89,E888.9) (W19.XXXD) Falls (E888.9) (W19.XXXA) Fatty liver (571.8) (K76.0) Generalized epilepsy (345.90) (G40.309) GERD (gastroesophageal reflux disease) (530.81) (K21.9) History of acute renal failure (V13.09) (Z87.448) Hypercholesterolemia (272.0) (E78.00) Hyperglycemia (790.29) (R73.9) Hypertension (401.9) (I10) Hypokalemia (276.8) (E87.6) Hypomagnesemia (275.2) (E83.42) Knee pain (719.46) (M25.569) Medication management (V58.69) (Z79.899) Migraines (346.90) (G43.909) Morbid obesity (278. (more content not included)... Normal [facility] No Panel Informationon 12-23 Please click on the link to view the study images Normal [facility] 300 Work Phone: [facility] Work Phone: Office Visit (Cardiology)on 12-23-2022 Follow-up visit Diagnoses/Problems Assessed Dizziness (780.4) (R42) History of Present Illness Reema Shah is a 47-year-old female with a h/o anxiety, obesity, depression, epilepsy, GERD, hypercholesterolemia, HTN, and falls presenting for her one month follow-up to evaluate BP Cardiac hx includes: 1. Vasovagal episodes -Echo displayed a normal EF of 60% and a pseudonormal pattern of left ventricular diastolic filling -A 3-day monitor was ordered to rule out any underlying arrhythmias which was normal with no abnormal rhythms detected. 2. Orthostatic hypotension: -At her last appointment, I instructed her to increase her water intake, discontinued her HCTZ, and ordered for the [facility] to begin checking daily BPs. Today, she is normotensive in the office, however, no BP log is sent with the patient. She reports feeling better with occassional episodes of dizziness when leaning forward. She is working on increasing her water intake and reports drinking approximately 40 ounces of water per day with a goal of 64 ounces. Patient denies any other complaints at today's visit *Active Problems Problems Abdominal pain, acute (789.00,338.19) (R10.9) Abdominal pain, acute, right upper quadrant (789.01,338.19) (R10.11) Anxiety (300.00) (F41.9) Bacterial vaginosis (616.10,041.9) (N76.0,B96.89) Body mass index (BMI) of 38.0 to 38.9 in adult (V85.38) (Z68.38) Colon cancer screening (V76.51) (Z12.11) Compression fracture of T5 vertebra (805.2) (S22.050A) Constipation (564.00) (K59.00) Depression, major, single episode, severe (296.23) (F32.2) Dizziness (780.4) (R42) Encounter for routine checking of intrauterine contraceptive device (IUD) (V25.42) (Z30.431) Excess ear wax (380.4) (H61.20) Fall, subsequent encounter (V58.89,E888.9) (W19.XXXD) Fatty liver (571.8) (K76.0) Generalized epilepsy (345.90) (G40.309) GERD (gastroesophageal reflux disease) (530.81) (K21.9) History of acute renal failure (V13.09) (Z87.448) Hypercholesterolemia (272.0) (E78.00) Hyperglycemia (790.29) (R73.9) Hypertension (401.9) (I10) Hypokalemia (276.8) (E87.6) Hypomagnesemia (275.2) (E83.42) Medication management (V58.69) (Z79.899) Migraines (346.90) (G43.909) Morbid obesity (278.01) (E66.01) Morbid obesity with BMI of 40.0-44.9, adult (278.01,V85.41) (E66.01,Z68.41) Nasal bone fracture (802.0) (S02.2XXA) Neck pain (723.1) (M54.2) Osteopenia (733.90) (M85.80) Otalgia of both ears (388.70) (H92.03) Otitis media, right (382.9) (H66.91) Palpitation (785.1) (R00.2) Pelvic pain in female (625.9) (R10.2) Scalp hematoma (920) (S00.03XA) Screening for breast cancer (V76.10) (Z12.39) Screening for cervical cancer (V76.2) (Z12.4) Screening for cervical cancer (V76.2) (Z12.4) Seizure (780.39) (R56.9) Sinusitis (473.9) (J32.9) Stage 3b chronic kidney disease (585.3) (N18.32) Status post fall (V15.88) (Z91.81) Thrombocytopenia (287.5) (D69.6) Tinea (110.9) (B35.9) Tinea corporis (110.5) (B35.4) Tremor (781.0) (R25.1) URI (upper respiratory infection) (465.9) (J06.9) Vaginal discharge (623.5) (N89.8) Widebased gait (781.2) (R26.89) Women's annual routine gynecological examination (V72.31) (Z01.419) Back pain (724.5) (M54.9) Chronic low back pain (724.2) (M54.50) Falls (E888.9) (W19.XXXA) Knee pain (719.46) (M25.569) Surgical History Problems History of Breast reduction History of Breast Surgery Reduction Procedure History of Intrauterine device placement 09/25/2019: Nael Past Medical History Problems H/O mammogram (V15.89) (Z92.89) 03/06/2022; BENIGN 02/21/2021- benign History of Hepatic Failure (570) Based on patient's description. Now resolved. History of anemia (V12.3) (Z86.2) now resolved History of blood transfusion (V15.89) (Z92.89) History of chronic kidney disease (V13.09) (Z87.448) Cr wsa 1.5 on 11/13/2014 History of congestive heart failure (V12.59) (Z86.79) History of hypertension (V12.59) (Z86.79) History of seizure (V13.89) (Z87.898) History of vaginal delivery (V13.29) 09/15/1997; 34 WEEKS; FEMALE; 4LBS 3OZ History of Influenza vaccination declined (V64.06) (Z28.21) History of Menarche (V21.8) History of Pap test, as part of routine gynecological examination (V76.2) (Z01.419) 01/29/2021; COTEST NEG 09/30/17; NIL History of Pelvic pain in female (625.9) (R10.2) Resolved Date: 01 Jul 2021 History of Pelvic pain in female (625.9) (R10.2) Resolved Date: 01 Jul 2021 History of Pelvic pain in female (625.9) (R10.2) Resolved Date: 14 Jul 2021 History of Renal failure (586) (N19) Based on patient's description. Now resolved. Current Meds Medication NameInstruction Allopurinol 300 MG Oral TabletTAKE 1 TABLET DAILY. amLODIPine Besylate 10 MG Oral TabletTAKE 1 TABLET DAILY. Artificial Tears 1 % Ophthalmic Solution2 DROPS BOTH EYES Q1HR PRN busPIRone HCl - 10 MG Oral TabletTAKE 1 TABLET 3 times daily PRN Calcium 600 +D High Potency 600-400 M (more content not included)... [facility] SPINE, LUMBOSACRAL MIN 4 VIE WSon 12-23-2022 SPINE, LUMBOSACRAL MIN 4 VIEWS Normal [facility] Tobacco Screening.on 023 Fall risk assessment b) One or more fall s in the last year [facility] 300 Work Phone: Tobacco use status [facility] b) No [facility] 300 Work Phone: Tobacco use status [facility] b) No [facility] 300 Work Phone: PT Initial Evaluationon PT Initial Evaluation Therapy Diagnosis Assessed Knee pain (719.46) (M25.569) Widebased gait (781.2) (R26.89) Fall, subsequent encounter (V58.89,E888.9) (W19.XXXD) Plan of Care Goals: Goals set and discussed today. Activity Limitation: Improved ABC scale score to 15% to demonstrate increased dynamic balance with transfers and ambulation, by week 4 Balance: 5xSTS to 12 seconds to demonstrate increased functional strength to decrease fall risk and ease of dynamic stability with transfers, by week 4 Pain: 3/10 R knee pain baseline for ease with sleeping and transfers, by week 4 Range Of Motion/Joint Mobility: Improved R knee AROM 0-120 deg for ease with ambulation and transfers, by week 4 Strength: Improved gross B hip, knee, and ankle strength 5/5 MMT for ease with ambulation and transfers to prevent falls, by week 4 HEP, Patient will demonstrate compliance in their home exercise program in order to promote independence in self management of functional mobility., by week 2 Planned interventions include: aquatic therapy, education/instruction, home program, manual therapy, neuromuscular re-education, self care/home management, therapeutic activities and therapeutic exercises. Frequency and duration: 2 time(s) a week, for 4 weeks, for 8 visits. Potential to achieve rehab goals is fair: Plan of care was developed with input and agreement by the patient. Assessment Reema Shah, a 47 year old female, arrives to outpatient PT c/o R knee pain and gait/balance deficits. Pt presents with the following impairments: B knee pain R>L, deficits in R knee AROM, deficits in gait biomechanics, deficits in SLS, deficits in functional strength/stability per 5xSTS, and deficits in subjective balance per ABC scale score. These impairments contribute to difficulty in activity limitations and participation restrictions including ambulation, transfers, sleeping, and self care. The pt will benefit from skilled PT services 2x/week for 4 weeks to address the above stated impairments and functional limitations to maximize participation and ease in household and social activities. The pt has a fair prognosis when considering positive factors including age with barriers such as PLOF and current medical comorbidities influencing strength/stability. Patient would benefit from aquatic based setting d/t pain of knees and to encourage participation. Educated on POC and HEP with seated exercises for hip strengthening. Handout provided. Pain same pre- and post-treatment. The pt verbalized understanding and agreement to goals and POC. Thank you for this referral and please call [phone] with any questions or concerns. Clinical Presentation: Stable and/or uncomplicated characteristics. Level of Complexity: low Problem List: activity limitations, ADLs/IADLs/self care skills, decreased knowledge of HEP, flexibility, gait/locomotion, pain, participation restrictions, range of motion/joint mobility and strength. Reason For Visit Initial Evaluation . Falls/ gait and mobility; knee pain. 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 She has fallen due to 3x. Her fall resulted in the following injury: Cut head open. REEMA has a fear of falling. She needs assistance with . Needs assistance walking in her home. She needs assistance in an unfamiliar setting. The patient is using an assistive device. Fall Risk Screening: Patient is identified as a fall risk. Care Plan: High Risk: Low and Moderate risk interventions plus: ensure patient is escorted at all times, do not leave unattended, inform provider of high risk status, discharge by wheelchair or escort assistance, room location, sitter, pre and post sedation/procedure standards, supervised toileting. Pain Scale: On a scale of 0 to 10, the patient rates the pain at 4. Please identify location of pain: R knee anterior/posterior. Pain Quality: aching and stabbing. The pain makes it hard for the patient to do these things: walking, sleep and self-care (bathing, dressing, eating). Living Will. Living Will: No living will on file. Healthcare POA: Health care proxy on file. Declaration of Mental Health Treatment: No mental health treatment on file. Depression/Suicide Screening: During the past 2 weeks, the patient felt down, depressed or hopeless. During the past 2 weeks, the patient felt little interest or pleasure in doing things. PHQ-9 performed by PCP last visit 12/15/22 Insurance Insurance reviewed Visit number: 1 Authorization not required after evaluation Insurance: Medicaid (med necessity) Evaluating therapist: Trice Tejada, PT, DPT PT dx: M25.569, R26.89 Med dx: W19.XXXD Precautions:High fall d/t gait abnormalities Onset Date: 2022 Subjective Mechanism of Injury: insidious onset . Patient confirmed name and date of th (more content not included)... [facility] Office Visit (Internal Medic ine)on 12-15-2022 Follow-up visit Diagnoses/Problems Health Maintenance/Risks Encounter for preventive health examination (V70.0) (Z00.00) Assessed Tremor (781.0) (R25.1) Anxiety (300.00) (F41.9) Fatty liver (571.8) (K76.0) Hypertension (401.9) (I10) Stage 3b chronic kidney disease (585.3) (N18.32) Seizure (780.39) (R56.9) Orders Anxiety Changed: From LORazepam 1 MG Oral Tablet TAKE 2 TABLET Twice daily To LORazepam 1 MG Oral Tablet TAKE 2 TABLET Twice daily AND 1 TAB DAILY PRN Rx By: Jeanie Ayala; Dispense: 30 Days ; #:150 Tablet; Refill: 2;For: Anxiety; SHARLENE = N;Digital Signature Pending Health Maintenance Gynecology Referral Evaluation and Treatment Evaluate AND Treat Status: Hold For - Scheduling Requested for: [id number] Ordered;For: Health Maintenance; Ordered By: Jeanie Ayala Performed: Due: 15Mar2023 Patient Discussion/Summary SCREENING COLONOSCOPY F/U 3 MO Provider Impressions C/O GETTEING SHAKEY AND CAN NOT WALK INTHE AFTER NOON DUE TO SHAKING WILL GIVE 1 MG ATIVAN PRN HAS DIOMEDES WITH NEPHRO ON 12/23 CAN NOT GIVE URINE , WILL DO AT HOME , ORDER WRITTEN SSAS DEVELOPER REFERRAL OARRS HAS BEEN REVIEWED AND IS CONSISTENT WITH PRESCRIBED MEDICATIONS, CONSIDERED THE RISK OF ABUSE, DEPENDENCE, ADDICTION AND DIVERSION, MEDICATION IS FELT TO BE CLINICALLY APPROPRIATE ON THE DOCUMENTED DIAGNOSIS MDM 1) COMPLEXITY: 1 OR MORE CHRONIC CONDITION WITH EXACERBATION, OR PROGRESSION OR SIDE EFFECT OF TREATMENT ADDRESSED 2)DATA: TESTS INTERPRETED AND OR ORDERED, TOOK INDEPENDENT HISTORY OR RECORDS REVIEWED 3)RISK: MODERATE RISK DUE TO NATURE OF MEDICAL CONDITIONS/COMORBIDITY OR MEDICATIONS ORDERED OR SURGICAL OR PROCEDURE REFERRAL, . Chief Complaint 1 MO FU LAB TODAY PT WAS IN ER PT CO BLEEDING WHEN URINATING History of Present IllnessHERE FOR F/U WITH LABS C/O BLOOD AFTER URINATION WHEN WIPES SEES BLOOD ON THE TOILET PAPER HAS AN IUD NO BLOOD IN STOOL NO DYSURIA NO FREQUENCY Scores and Scales PHQ-9 [id number] 11:48AM PHQ-9 #1. Little interest or pleasure in doing things3-Nearly every day PHQ-9 #2. Feeling down, depressed, or hopelesS3-Nearly every day PHQ-9 #3. Trouble falling or staying asleep, or sleeping too much3-Nearly every day PHQ-9 #4. Feeling tired or having little energy3-Nearly every day PHQ-9 #5. Poor appetite or overeating3-Nearly every day PHQ-9 #6. Feeling bad about yourself or you are a failure or that you have let yourself or your family down2-More than half the days PHQ-9 #7. Trouble concentrating on things, such as reading the newspaper or watch television2-More than half the days PHQ-9 #8. Moving or speaking so slowly that other people could have noticed. Or the opposite-being so fidgety or restless that you have been moving around a lot more than usual2-More than half the days PHQ-9 #9. Thoughts that you would be better off , or of hurting yourself0-Not at all PHQ-9 #10. If you checked off any problems, how difficult have these problems made it for you to do your work, take care of things at home, or get along with other people?Extremely Difficult PHQ-9 Total Score (Please update problem list based on total score)21 PHQ-9 Depression SeveritySevere (20-27) Review of Systems Constitutional: not feeling poorly, no fever, no recent weight gain and no recent weight loss. Eyes: no blurred vision and no diplopia. ENT: no hearing loss, no tinnitus, no earache, no sore throat, no hoarseness and no swollen glands in the neck. Cardiovascular: no chest pain, no tightness or heavy pressure, no shortness of breath, no palpitations and no lower extremity edema. Respiratory: no cough, not coughing up sputum and no wheezing that is consistent with asthma. Gastrointestinal: no change in bowel habits, no diarrhea, no constipation, no bloody stools, no nausea, no vomiting, no abdominal pain, no signs and symptoms of ulcer disease, no ligia colored stools and no intolerance to fatty foods. Genitourinary: no urinary frequency, no dysuria, no burning sensation during urination and no hematuria. Musculoskeletal: no arthralgias, no joint stiffness, no muscle weakness, no back pain and no difficulty walking. Skin: no rashes, no change in skin color and pigmentation, no skin lesions and no skin lumps. Neurological: no headaches, no dizziness, no seizures, no tingling, no numbness, no signs and symptoms of stroke and no limb weakness. Psychiatric: no confusion, no memory lapses or loss, no depression and no sleep disturbances. Endocrine: no goiter, no thyroid disorder, no diabetes mellitus, no excessive thirst, no dry skin, no cold intolerance, no heat intolerance and no increased urinary frequency. Hematologic/Lymphatic: is not slow to heal, does not bleed easily, does not bruise easily, no thrombophlebitis, no anemia and no history of blood transfusion. All other systems have been reviewed and are negative for complaint. Active Problems Problems Abdominal pain, acute (789.00,338.19) (R10.9) Abdominal pain, (more content not included)... Normal [employer] Tobacco Screening.on 023 Fall risk assessment a) No falls within the last year [facility] Work Phone: Tobacco use status CPHS b) No [facility] Work Phone: ALCOHOLon 12-07-2022 Ethanol [Mass/Vol] mg/dL Normal [facility] Comment on above: Result Comment: FOR MEDICAL USE ONLY..REF VALUES <10 Performed By: #### A LC ####[address] [address] Alcohol, Serumon 12-07-2022 Ethanol [Mass/Vol] mg/dL [facility]h [facility] Work Phone: Comment on above: FOR MEDICAL USE ONLY . .REF VALUES <10 BASIC METABOLIC PANELon 11-19 Anion gap [Moles/Vol] 11 mmol/L Normal 10 - 20 [facility] Comment on above: Performed By: #### B MP ####[address] [address] Calcium [Mass/Vol] 8.3 mg/dL Low 8.6 - 10.3 [facility] Comment on above: Performed By: #### B MP ####[address] [address] Chloride [Moles/Vol] 104 mmol/L Normal 98 - 107 [facility] Comment on above: Performed By: #### B MP ####[address] [address] Creatinine [Mass/Vol] 1.43 mg/dL High 0.50 - 1.05 [facility] Comment on above: Performed By: #### B MP ####[address] [address] GFR/1.73 sq M.predicted among non-blacks MDRD (S/P/Bld) [Vol rate/Area] 45 mL/min/{1.73_m2} Abnormal >90 [facility] Comment on above: Result Comment: CALC ULATIONS OF ESTIMATED GFR ARE PERFORMED USING THE 2020 CKD-EPI STUDY REFIT EQUATION WITHOUT THE RACE VARIABLE FOR THE IDMS-TRACEABLE CREATININE METHODS.https://jasn.asnjournals.org/content/early/ N.3474219838 Performed By: #### B MP ####[address] [address] Glucose [Mass/Vol] 87 mg/dL Normal 74 - 99 [facility] Comment on above: Performed By: #### B MP ####[address] [address] HCO3 (Bld) [Moles/Vol] 27 mmol/L Normal 21 - 32 [facility] Comment on above: Performed By: #### B MP ####[address] [address] Potassium [Moles/Vol] 4.5 mmol/L Normal 3.5 - 5.3 [facility] Comment on above: Performed By: #### B MP ####[address] [address] Sodium [Moles/Vol] 137 mmol/L Normal 136 - 145 [facility] Comment on above: Performed By: #### B MP ####[address] [address] Urea nitrogen [Mass/Vol] 23 mg/dL Normal 6 - 23 [facility] Comment on above: Performed By: #### B MP ####[address] [address] CBC AND DIFFERENTIALon 12-07 % AUTOMATED IMMATURE GRAN 0.6 % Normal 0.0 - 0.9 [facility] Comment on above: Result Comment: Suze ture Granulocyte Count (IG) includes promyelocytes, myelocytes and metamyelocytes but does not include bands. Percent differential counts (%) should be interpreted in the context of the absolute cell counts (cells/L). Performed By: #### C BCDF ####[place] [id number] Basophils (Bld) [#/Vol] 0.02 10*3/uL Normal 0.00 - 0.10 [facility] Comment on above: Performed By: #### C BCDF ####[place] [id number] Basophils/100 WBC (Bld) 0.4 % Normal 0.0 - 2.0 [facility] Comment on above: Performed By: #### C BCDF ####[place] [id number] Eosinophils (Bld) [#/Vol] 0.11 10*3/uL Normal 0.00 - 0.70 [facility] Comment on above: Performed By: #### C BCDF ####[address] [address] Eosinophils/100 WBC (Bld) 2.1 % Normal 0.0 - 6.0 [facility] Comment on above: Performed By: #### C BCDF ####[address] [address] Erythrocyte distribution width (RBC) [Ratio] 12.5 % Normal 11.5 - 14.5 [facility] Comment on above: Performed By: #### C BCDF ####[address] [address] Hematocrit (Bld) [Volume fraction] 39.1 % Normal 36.0 - 46.0 [facility] Comment on above: Performed By: #### C BCDF ####[address] [address] Hemoglobin (Bld) [Mass/Vol] 13.0 g/dL Normal 12.0 - 16.0 [facility] Comment on above: Performed By: #### C BCDF ####[address] [address] Lymphocytes (Bld) [#/Vol] 1.27 10*3/uL Normal 1.20 - 4.80 [facility] Comment on above: Performed By: #### C BCDF ####[address] [address] Lymphocytes/100 WBC (Bld) 24.5 % Normal 13.0 - 44.0 [facility] Comment on above: Performed By: #### C BCDF ####[address] [address] MCHC (RBC) [Mass/Vol] 33.2 g/dL Normal 32.0 - 36.0 [facility] Comment on above: Performed By: #### C BCDF ####[address] [address] MCV (RBC) [Entitic vol] 91 fL Normal 80 - 100 [facility] Comment on above: Performed By: #### C BCDF ####[address] [address] Monocytes (Bld) [#/Vol] 0.45 10*3/uL Normal 0.10 - 1.00 [facility] Comment on above: Performed By: #### C BCDF ####[address] [address] Monocytes/100 WBC (Bld) 8.7 % Normal 2.0 - 10.0 [facility] Comment on above: Performed By: #### C BCDF ####[address] [address] Neutrophils (Bld) [#/Vol] 3.30 10*3/uL Normal 1.20 - 7.70 [facility] Comment on above: Result Comment: Perc ent differential counts (%) should be interpreted in the context of the absolute cell counts (cells/L). Performed By: #### C BCDF ####[address] [address] Neutrophils/100 WBC (Bld) 63.7 % Normal 40.0 - 80.0 [facility] Comment on above: Performed By: #### C BCDF ####[address] [address] Platelets (Bld) [#/Vol] 115 10*3/uL Low 150 - 450 [facility] Comment on above: Performed By: #### C BCDF ####[address] [address] RBC 4.30 x10E12/L Normal 4.00 - 5.20 [facility] Comment on above: Performed By: #### C BCDF ####[address] [address] WBC (Bld) [#/Vol] 5.2 10*3/uL Normal 4.4 - 11.3 [facility] Comment on above: Performed By: #### C BCDF ####[address] [address] CHEST 1 VIEWon 12-07-2022 CHEST 1 VIEW Normal [facility] CORONAVIRUS 2019 BY PCRon SARS-CoV-2 (COVID-19) RNA CHIARA+probe Ql (Unsp spec) Not detected Normal Not Detected [facility] Comment on above: Result Comment: .Thi s test has received FDA Emergency Use Authorization (EUA) and has beenverified by [facility]. This test is onlyauthorized for the duration of time that circumstances exist to justify theauthorization of the emergency use of in vitro diagnostic tests for thedetection of SARS-CoV-2 virus and/or diagnosis of COVID-19 infection undersection 564(b)(1) of the Act, 21 U.S.C. 360bbb-3(b)(1), unless theauthorization is terminated or revoked sooner.[facility] is certified under CLIA-88 asqualified to perform high complexity testing. [facility] at [address] [place], [place].SARS-CoV-2/Flu/RSV Multiplex Test:Fact sheet for providers: https://www.fda.gov/media/510086/downloadFact sheet for patients: https://www.fda.gov/media/303614/download Performed By: #### C OV19 ####[address] [address] Lab Specimen Source Nasal, Nasopharyngeal Normal [facility] Comment on above: Performed By: #### C OV19 ####[address] [address] Complete Blood Count + Diffe rentialon 12-07-2022 Basophils/100 WBC (Bld) 0.4 % 0.0 - 2.0 [facility] [place] Work Phone: Erythrocyte distribution width (RBC) [Ratio] 12.5 % See Below [facility] [place] Work Phone: Comment on above: Reference Range: 11. 5 - 14.5 Hematocrit (Bld) [Volume fraction] 39.1 % See Below [facility] [place] Work Phone: Comment on above: Reference Range: 36. 0 - 46.0 Hemoglobin (Bld) [Mass/Vol] 13.0 g/dL See Below [facility] [place] Work Phone: Comment on above: Reference Range: 12. 0 - 16.0 Lymphocytes/100 WBC (Bld) 24.5 % See Below [facility] [place] Work Phone: Comment on above: Reference Range: 13. 0 - 44.0 MCHC (RBC) [Mass/Vol] 33.2 g/dL See Below [facility] [place] Work Phone: Comment on above: Reference Range: 32. 0 - 36.0 MCV (RBC) [Entitic vol] 91 fL 80 - 100 [facility] [place] Work Phone: Monocytes/100 WBC (Bld) 8.7 % 2.0 - 10.0 [facility] Work Phone: Neutrophils/100 WBC (Bld) 63.7 % See Below [facility] Work Phone: Comment on above: Reference Range: 40. 0 - 80.0 Platelets (Bld) [#/Vol] 115 10*3/uL below low threshold 150 - 450 [facility] Work Phone: RBC (Bld) [#/Vol] 4.30 {x10E12/L} See Below [facility] [place] Work Phone: Comment on above: Reference Range: 4.0 0 - 5.20 WBC (Bld) [#/Vol] 5.2 10*3/uL 4.4 - 11.3 [facility] [place] Work Phone: Complete Blood Count + Differential 0.02 {x10E9/L} See Below [facility] [place] Work Phone: Comment on above: Reference Range: 0.0 0 - 0.10 Complete Blood Count + Differential 0.11 {x10E9/L} See Below [facility] [place] Work Phone: Comment on above: Reference Range: 0.0 0 - 0.70 Complete Blood Count + Differential 0.45 {x10E9/L} See Below [facility] [place] Work Phone: Comment on above: Reference Range: 0.1 0 - 1.00 Complete Blood Count + Differential 1.27 {x10E9/L} See Below [facility] [place] Work Phone: Comment on above: Reference Range: 1.2 0 - 4.80 Complete Blood Count + Differential 3.30 {x10E9/L} See Below [facility] [place] Work Phone: Comment on above: Reference Range: 1.2 0 - 7.70 Percent differential counts (%) should be interpreted in the context of the absolute cell counts (cells/L). Complete Blood Count + Differential 2.1 % 0.0 - 6.0 [facility] Work Phone: Complete Blood Count + Differential 0.6 % 0.0 - 0.9 [facility] Work Phone: Comment on above: Immature Granulocyte Count (IG) includes promyelocytes, myelocytes and metamyelocytes but does not include bands. Percent differential counts (%) should be interpreted in the context of the absolute cell counts (cells/L). Coronavirus 2019 RNA by PCR, Symptomaticon 12-07-2022 Coronavirus 2019 RNA by PCR, Symptomatic Not detected Normal See Below [facility] Work Phone: Comment on above: SOURCE: Nasal, Nasop haryngealReference Range: Not Detected.This test has received FDA Emergency Use Authorization (EUA) and has been verified by [facility]. This test is only authorized for the duration of time that circumstances exist to justify the authorization of the emergency use of in vitro diagnostic tests for the detection of SARS-CoV-2 virus and/or diagnosis of COVID-19 infection under section 564(b)(1) of the Act, 21 U.S.C. 360bbb-3(b)(1), unless the authorization is terminated or revoked sooner. [facility] is certified under CLIA-88 as qualified to perform high complexity testing. Testing is performed in the [facility] laboratory located at [address] [place] [address].SARS-CoV-2/Flu/RSV Multiplex Test: Fact sheet for providers: https://www.fda.gov/media/038578/downloadFact sheet for patients: https://www.fda.gov/media/242169/download Covid 19 Resultson SARS-CoV-2 (COVID-19) RNA CHIARA+probe Ql (Unsp spec) Normal [facility] DRUG SCREEN,URINEon 12-07-19 23 AMPHETAMINE SCREEN,U Negative Normal NEGATIVE [facility] Comment on above: Result Comment: CUTO FF LEVEL: 500 NG/ML Cross-reactivity has been reported with high concentrations of the following drugs: buproprion, chloroquine, chlorpromazine, ephedrine, mephentermine, fenfluramine, phentermine, phenylpropanolamine, pseudoephedrine, and propranolol. Performed By: #### D RUG3 ####[place] [address] BARBITURATES SCREEN,U Positive Abnormal NEGATIVE [facility] Comment on above: Result Comment: CUTO FF LEVEL: 200 NG/ML Performed By: #### D RUG3 ####[place] [address] BENZODIAZEPINES SCREEN,U Negative Normal NEGATIVE [facility] Comment on above: Result Comment: CUTO FF LEVEL: 200 NG/ML Performed By: #### D RUG3 ####[place] [address] CANNABINOIDS SCREEN,U Negative Normal NEGATIVE [facility] Comment on above: Result Comment: CUTO FF LEVEL: 50 NG/ML Performed By: #### D RUG3 ####[place] [address] COCAINE METABOLITE SCREEN,U Negative Normal NEGATIVE [facility] Comment on above: Result Comment: CUTO FF LEVEL: 150 NG/ML Performed By: #### D RUG3 ####[place] [address] DRUG SCREEN COMMENT SEE BELOW Normal [facility] Comment on above: Result Comment: Drug screen results are presumptive and should not be used to assesscompliance with prescribed medication. Contact the performing [facility] to add-on definitive confirmatory testing if clinicallyindicated..Toxicology screening results are reported qualitatively. The concentrationmust be greater than or equal to the cutoff to be reported as positive. Theconcentration at which the screening test can detect an individual drug ormetabolite varies. The absence of expected drug(s) and/or drug metabolite(s)may indicate non-compliance, inappropriate timing of specimen collectionrelative to drug administration, poor drug absorption, diluted/adulteratedurine, or limitations of testing. For medical purposes only; not valid forforensic use..Interpretive questions should be directed to the laboratory medicaldirectors. Performed By: #### D RUG3 ####[place] [address] FENTANYL SCREEN,URINE Negative Normal NEGATIVE [facility] Comment on above: Result Comment: CUTO FF LEVEL: 5 NG/ML Performed By: #### D RUG3 ####[place] [address] METHADONE SCREEN,U Negative Normal NEGATIVE [facility] Comment on above: Result Comment: CUTO FF LEVEL: 150 NG/ML The metabolite O-cwnvq-etzdwpympitskg (LAAM) is not detected by this method in concentrations that would be found in the urine of patients on LAAM therapy. Performed By: #### D RUG3 ####[place] [address] OPIATES SCREEN,U Negative Normal NEGATIVE [facility] Comment on above: Result Comment: CUTO FF LEVEL: 300 NG/ML The opiate screen does not detect fentanyl, meperidine, or tramadol. Oxycodone is not consistently detected (refer to Oxycodone Screen, Urine result). Performed By: #### D RUG3 ####[place] [address] OXYCODONE SCREEN,U Negative Normal NEGATIVE [facility] Comment on above: Result Comment: CUTO FF LEVEL: 100 NG/ML This test will accurately detect both oxycodone and oxymorphone. Performed By: #### D RUG3 ####[place] [address] PCP SCREEN,U Negative Normal NEGATIVE [facility] Comment on above: Result Comment: CUTO FF LEVEL: 25 NG/ML Cross-reactivity has been reported with dextromethorphan. Performed By: #### D RUG3 ####[place] [address] HCG, Beta Quantitativeon HCG.beta subunit Qn m[IU]/mL [facility] [place] Work Phone: Comment on above: .Total HCG measureme nt is performed using the [employer] AccessImmunoassay which detects intact HCG and free beta HCG subunit. .This test is not indicated for use as a tumor marker.HCG testing is performed using a different test methodology at [facility] than other [facility]. Direct result comparisonshould only be made within the same method. REF VALUESNON FEMALE <5MALES <5 HCG,BETA-QUANTITATIVEon 02- 0-2022 HCG,BETA-QUANTITATIVE <2 Normal [facility] Comment on above: Result Comment: .Tot al HCG measurement is performed using the [employer] [place] AccessImmunoassay which detects intact HCG and free beta HCG subunit..This test is not indicated for use as a tumor marker.HCG testing is performed using a different test methodology at [facility] than other [facility]. Direct result comparisonshould only be made within the same method.REF VALUESNON FEMALE <5MALES <5 Performed By: #### H CGQU ####[place] [address] [place] [address] Laboratory - Chemistry and C hemistry - challengeon 12-07-2022 Anion gap [Moles/Vol] 11 mmol/L 10 - 20 [facility] [place] Work Phone: Calcium [Mass/Vol] 8.3 mg/dL below low threshold 8.6 - 10.3 [facility] Work Phone: Chloride [Moles/Vol] 104 mmol/L 98 - 107 [facility] Work Phone: CO2 [Moles/Vol] 27 mmol/L 21 - 32 [facility] Work Phone: Creatinine [Mass/Vol] 1.43 mg/dL above high threshold See Below [facility] Work Phone: Comment on above: Reference Range: 0.5 0 - 1.05 Glucose [Mass/Vol] 87 mg/dL 74 - 99 [facility] [place] Work Phone: Potassium [Moles/Vol] 4.5 mmol/L 3.5 - 5.3 [facility] [place] Work Phone: Sodium [Moles/Vol] 137 mmol/L 136 - 145 [facility] [place] Work Phone: Urea nitrogen [Mass/Vol] 23 mg/dL 6 - 23 [facility] [place] Work Phone: Laboratory - Drug toxicology on 12-07-2022 Amphetamines Screen Ql (U) Negative NEGATIVE [facility] [place] Work Phone: Comment on above: CUTOFF LEVEL: 500 NG /ML Cross-reactivity has been reported with high concentrations of the following drugs: buproprion, chloroquine, chlorpromazine, ephedrine, mephentermine, fenfluramine, phentermine, phenylpropanolamine, pseudoephedrine, and propranolol. Barbiturates Screen Ql (U) Positive Abnormal NEGATIVE [facility] [place] Work Phone: Comment on above: CUTOFF LEVEL: 200 NG /ML Benzodiazepines Ql (U) Negative NEGATIVE [facility] [place] Work Phone: Comment on above: CUTOFF LEVEL: 200 NG /ML Benzoylecgonine Screen Ql (U) Negative NEGATIVE [facility] [place] Work Phone: Comment on above: CUTOFF LEVEL: 150 NG /ML Cannabinoids Screen Ql (U) Negative NEGATIVE [facility] [place] Work Phone: Comment on above: CUTOFF LEVEL: 50 NG/ ML Methadone Screen Ql (U) Negative NEGATIVE [facility] [place] Work Phone: Comment on above: CUTOFF LEVEL: 150 NG /ML The metabolite Z-vmqap-bnzmkptwtenzww (LAAM) is not detected by this method in concentrations that would be found in the urine of patients on LAAM therapy. Opiates Screen Ql (U) Negative NEGATIVE [facility] Work Phone: Comment on above: CUTOFF LEVEL: 300 NG /ML The opiate screen does not detect fentanyl, meperidine, or tramadol. Oxycodone is not consistently detected (refer to Oxycodone Screen, Urine result). oxyCODONE+oxyMORphone Screen Ql (U) Negative NEGATIVE [facility] Work Phone: Comment on above: CUTOFF LEVEL: 100 NG /ML This test will accurately detect both oxycodone and oxymorphone. Phencyclidine Ql (U) Negative NEGATIVE [facility] [place] Work Phone: Comment on above: CUTOFF LEVEL: 25 NG/ ML Cross-reactivity has been reported with dextromethorphan. No Panel Informationon 12-07 Negative NEGATIVE [facility] Work Phone: Comment on above: CUTOFF LEVEL: 5 NG/M L SEE BELOW [facility] [place] Work Phone: Comment on above: Drug screen results are presumptive and should not be used to assess compliance with prescribed medication. Contact the performing [facility] laboratory to add-on definitive confirmatory testing if clinically indicated. .Toxicology screening results are reported qualitatively. The concentration must be greater than or equal to the cutoff to be reported as positive. The concentration at which the screening test can detect an individual drug or metabolite varies. The absence of expected drug(s) and/or drug metabolite(s) may indicate non-compliance, inappropriate timing of specimen collection relative to drug administration, poor drug absorption, diluted/adulterated urine, or limitations of testing. For medical purposes only; not valid for forensic use. .Interpretive questions should be directed to the laboratory medical directors. 45 {mL/min/1.73m2} Abnormal >90 [facility] [place] Work Phone: Comment on above: CALCULATIONS OF FRIEDA MATED GFR ARE PERFORMED USING THE 2020 CKD-EPI STUDY REFIT EQUATION WITHOUT THE RACE VARIABLE FOR THE IDMS-TRACEABLE CREATININE METHODS.https://jasn.asnjournals.org/content// N.5258411900 Provider Note - ED v3on 11-19 Provider Note - ED v3 Normal [facility] Radiologyon 12-07-2022 XR Chest Single view Normal [facility] Work Phone: Risk Screen - Adult Emergenc yon 12-07-2022 Risk Screen - Adult Emergency Normal [facility] Triage - EDon 12-07-2022 Triage - ED Normal [facility] Office Visit (Internal Medic ine)on 12-02-2022 Follow-up visit Diagnoses/Problems Assessed Hypomagnesemia (275.2) (E83.42) URI (upper respiratory infection) (465.9) (J06.9) Seizure (780.39) (R56.9) Stage 3b chronic kidney disease (585.3) (N18.32) Orders Anxiety Renew: LORazepam 1 MG Oral Tablet; TAKE 2 TABLET Twice daily Rx By: Jeanie Ayala; Dispense: 30 Days ; #:120 Tablet; Refill: 2;For: Anxiety; SHARLENE = N; Verified Transmission to [facility]; Last Updated By: [employer]; 12/02/2022 2:35:17 PM Hypomagnesemia Start: Magnesium 400 MG Oral Tablet; Take 1 tablet daily Rx By: Jeanie Ayala; Dispense: 0 Days ; #:30 Tablet; Refill: 11;For: Hypomagnesemia; SHARLENE = N; Verified Transmission to [facility]; Last Updated By: [employer]; 12/02/2022 2:35:16 PM Seizure Neurology - General Referral Evaluation and Treatment Evaluate AND Treat Status: Complete Done: [id number] Ordered;For: Seizure; Ordered By: Jeanie Ayala Performed: Due: [id number]; Last Updated By: Alyce Rao; 12/02/2022 3:34:[address] [facility] Stage 3b chronic kidney disease Nephrology Referral Evaluation and Treatment Evaluate AND Treat Status: Complete Done: [id number] Ordered;For: Stage 3b chronic kidney disease; Ordered By: Jeanie Ayala Performed: Due: [id number]; Last Updated By: Alyce Rao; 12/02/2022 4:10:22 PM SCHEDULED 12/23/2022 @ 2:30 Patient Discussion/Summary F/U 1 MO CBC CMP MAG Provider Impressions AVOID NSAIDS INCREASE FLUID INTAKE OARRS HAS BEEN REVIEWED AND IS CONSISTENT WITH PRESCRIBED MEDICATIONS, CONSIDERED THE RISK OF ABUSE, DEPENDENCE, ADDICTION AND DIVERSION, MEDICATION IS FELT TO BE CLINICALLY APPROPRIATE ON THE DOCUMENTED DIAGNOSIS PT. WAS INSTRUCTED TO INCREASE FLUID INTAKE ,TAKE TYLENOL 650 MG PO Q6H/PRN FOR PAIN OR FEVER AND TAKE ROBITUSSIN OTC 2 TSP Q 6H/PRN FOR COUGH. Chief Complaint An interactive audio and video telecommunication system which permits real time communications between the patient (at the originating site) and provider (at the distant site) was utilized to provide this telehealth service. Verbal consent was requested and obtained from REEMA SHAH on this date, 12/02/2022 02:00 PM , for a telehealth visit. FU ER FOR SEIZURES PT STATES SHE FEELS TERRIBLE PT STATES IT WAS SUGGESTED SHE HAVE A PRN ATIVAN SCRIPT History of Present IllnessF/U AFTER ER PT C/O SORE THROAT TINEO RUNNY NOSE FOR SINCE LAST NIGHT SEVERITY: MILD CHARACTERISTIC: ACUTE EXACERBATION FACTOR: NONE RELIEVING FACTOR: NONE ASSOCIATED SYMPTOMS: HAD CHILLS BUT NO FEVER, NAUSEA , NO LOSS OF TASTE OR SMELL PRIOR TX: TYLENOL COVID TEST NEGATIVE Scores and Scales PHQ-9 07Jan2022 11:48AM PHQ-9 #1. Little interest or pleasure in doing things3-Nearly every day PHQ-9 #2. Feeling down, depressed, or hopelesS3-Nearly every day PHQ-9 #3. Trouble falling or staying asleep, or sleeping too much3-Nearly every day PHQ-9 #4. Feeling tired or having little energy3-Nearly every day PHQ-9 #5. Poor appetite or overeating3-Nearly every day PHQ-9 #6. Feeling bad about yourself or you are a failure or that you have let yourself or your family down2-More than half the days PHQ-9 #7. Trouble concentrating on things, such as reading the newspaper or watch television2-More than half the days PHQ-9 #8. Moving or speaking so slowly that other people could have noticed. Or the opposite-being so fidgety or restless that you have been moving around a lot more than usual2-More than half the days PHQ-9 #9. Thoughts that you would be better off , or of hurting yourself0-Not at all PHQ-9 #10. If you checked off any problems, how difficult have these problems made it for you to do your work, take care of things at home, or get along with other people?Extremely Difficult PHQ-9 Total Score (Please update problem list based on total score)21 PHQ-9 Depression SeveritySevere (20-27) Review of Systems ALL OTHER SYSTEMS HAVE BEEN REVIEWED AND ARE NEGATIVE Active Problems Problems Abdominal pain, acute (789.00,338.19) (R10.9) Abdominal pain, acute, right upper quadrant (789.01,338.19) (R10.11) Anxiety (300.00) (F41.9) Back pain (724.5) (M54.9) Bacterial vaginosis (616.10,041.9) (N76.0,B96.89) Body mass index (BMI) of 38.0 to 38.9 in adult (V85.38) (Z68.38) Chronic low back pain (724.2,338.29) (M54.50,G89.29) Compression fracture of T5 vertebra (805.2) (S22.050A) Constipation (564.00) (K59.00) Depression, major, single episode, severe (296.23) (F32.2) Dizziness (780.4) (R42) Encounter for routine checking of intrauterine contraceptive device (IUD) (V25.42) (Z30.431) Excess ear wax (380.4) (H61.20) Falls (E888.9) (W19.XXXA) Fatty liver (571.8) (K76.0) Generalized epilepsy (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 Normal [facility] CBC AND DIFFERENTIALon 11-26 % AUTOMATED IMMATURE GRAN 0.7 % Normal 0.0 - 0.9 [facility] Comment on above: Result Comment: Suze ture Granulocyte Count (IG) includes promyelocytes, myelocytes and metamyelocytes but does not include bands. Percent differential counts (%) should be interpreted in the context of the absolute cell counts (cells/L). Performed By: #### C BCDF ####[address] [address] Basophils (Bld) [#/Vol] 0.02 10*3/uL Normal 0.00 - 0.10 [facility] Comment on above: Performed By: #### C BCDF ####[address] [address] Basophils/100 WBC (Bld) 0.3 % Normal 0.0 - 2.0 [facility] Comment on above: Performed By: #### C BCDF ####[address] [address] Eosinophils (Bld) [#/Vol] 0.08 10*3/uL Normal 0.00 - 0.70 [facility] Comment on above: Performed By: #### C BCDF ####[address] [address] Eosinophils/100 WBC (Bld) 1.2 % Normal 0.0 - 6.0 [facility] Comment on above: Performed By: #### C BCDF ####[address] [address] Erythrocyte distribution width (RBC) [Ratio] 12.7 % Normal 11.5 - 14.5 [facility] Comment on above: Performed By: #### C BCDF ####[address] [address] Hematocrit (Bld) [Volume fraction] 40.3 % Normal 36.0 - 46.0 [facility] Comment on above: Performed By: #### C BCDF ####[address] [address] Hemoglobin (Bld) [Mass/Vol] 13.4 g/dL Normal 12.0 - 16.0 [facility] Comment on above: Performed By: #### C BCDF ####[address] [address] Lymphocytes (Bld) [#/Vol] 1.68 10*3/uL Normal 1.20 - 4.80 [facility] Comment on above: Performed By: #### C BCDF ####[address] [address] Lymphocytes/100 WBC (Bld) 24.3 % Normal 13.0 - 44.0 [facility] Comment on above: Performed By: #### C BCDF ####[address] [address] MCHC (RBC) [Mass/Vol] 33.3 g/dL Normal 32.0 - 36.0 [facility] Comment on above: Performed By: #### C BCDF ####[address] [address] MCV (RBC) [Entitic vol] 90 fL Normal 80 - 100 [facility] Comment on above: Performed By: #### C BCDF ####[address] [address] Monocytes (Bld) [#/Vol] 0.58 10*3/uL Normal 0.10 - 1.00 [facility] Comment on above: Performed By: #### C BCDF ####[address] [address] Monocytes/100 WBC (Bld) 8.4 % Normal 2.0 - 10.0 [facility] Comment on above: Performed By: #### C BCDF ####[address] [address] Neutrophils (Bld) [#/Vol] 4.50 10*3/uL Normal 1.20 - 7.70 [facility] Comment on above: Result Comment: Perc ent differential counts (%) should be interpreted in the context of the absolute cell counts (cells/L). Performed By: #### C BCDF ####[address] [address] Neutrophils/100 WBC (Bld) 65.1 % Normal 40.0 - 80.0 [facility] Comment on above: Performed By: #### C BCDF ####[address] [address] Platelets (Bld) [#/Vol] 134 10*3/uL Low 150 - 450 [facility] Comment on above: Result Comment: Plat elet count verified by smear review. no plt clumps or clots seen Performed By: #### C BCDF ####[address] [address] RBC 4.47 x10E12/L Normal 4.00 - 5.20 [facility] Comment on above: Performed By: #### C BCDF ####[address] [address] WBC (Bld) [#/Vol] 6.9 10*3/uL Normal 4.4 - 11.3 [facility] Comment on above: Performed By: #### C BCDF ####[address] [address] COMPREHENSIVE PANELon 2022 Albumin [Mass/Vol] 4.0 g/dL Normal 3.4 - 5.0 [facility] Comment on above: Performed By: #### C MP ####[address] [address] ALP [Catalytic activity/Vol] 69 U/L Normal 33 - 110 [facility] Comment on above: Performed By: #### C MP ####[address] [address] ALT [Catalytic activity/Vol] 17 U/L Normal 7 - 45 [facility] Comment on above: Result Comment: Marjan ents treated with Sulfasalazine may generate falsely decreased results for ALT. Performed By: #### C MP ####[address] [address] Anion gap [Moles/Vol] 13 mmol/L Normal 10 - 20 [facility] Comment on above: Performed By: #### C MP ####[address] [address] AST [Catalytic activity/Vol] 20 U/L Normal 9 - 39 [facility] Comment on above: Performed By: #### C MP ####[address] [address] Bilirubin [Mass/Vol] 0.3 mg/dL Normal 0.0 - 1.2 [facility] Comment on above: Performed By: #### C MP ####[address] [address] Calcium [Mass/Vol] 9.2 mg/dL Normal 8.6 - 10.3 [facility] Comment on above: Performed By: #### C MP ####[address] [address] Chloride [Moles/Vol] 101 mmol/L Normal 98 - 107 [facility] Comment on above: Performed By: #### C MP ####[address] [address] Creatinine [Mass/Vol] 1.47 mg/dL High 0.50 - 1.05 [facility] Comment on above: Performed By: #### C MP ####[address] [address] GFR/1.73 sq M.predicted among non-blacks MDRD (S/P/Bld) [Vol rate/Area] 43 mL/min/{1.73_m2} Abnormal >90 [facility] Comment on above: Result Comment: CALC ULATIONS OF ESTIMATED GFR ARE PERFORMED USING THE 2020 CKD-EPI STUDY REFIT EQUATION WITHOUT THE RACE VARIABLE FOR THE IDMS-TRACEABLE CREATININE METHODS.https://jasn.asnjournals.org/content/early/ N.4132324815 Performed By: #### C MP ####[address] [address] Glucose [Mass/Vol] 89 mg/dL Normal 74 - 99 [facility] Comment on above: Performed By: #### C MP ####[address] [address] HCO3 (Bld) [Moles/Vol] 27 mmol/L Normal 21 - 32 [facility] Comment on above: Performed By: #### C MP ####[address] [address] Potassium [Moles/Vol] 3.9 mmol/L Normal 3.5 - 5.3 [facility] Comment on above: Performed By: #### C MP ####[address] [address] Protein [Mass/Vol] 6.6 g/dL Normal 6.4 - 8.2 [facility] Comment on above: Performed By: #### C MP ####[address] [address] Sodium [Moles/Vol] 137 mmol/L Normal 136 - 145 [facility] Comment on above: Performed By: #### C MP ####[address] [address] Urea nitrogen [Mass/Vol] 22 mg/dL Normal 6 - 23 [facility] Comment on above: Performed By: #### C MP ####[address] [address] CT HEAD WO CONTRASTon 2022 CT HEAD WO CONTRAST Normal [facility] CT Head without Contraston 0 11-26-2022 CT Head limited WO contrast Normal [facility] [place] Work Phone: Complete Blood Count + Diffe rentialon 11-26-2022 Basophils/100 WBC (Bld) 0.3 % 0.0 - 2.0 [facility] [place] Work Phone: Erythrocyte distribution width (RBC) [Ratio] 12.7 % See Below [facility] [place] Work Phone: Comment on above: Reference Range: 11. 5 - 14.5 Hematocrit (Bld) [Volume fraction] 40.3 % See Below [facility] Work Phone: Comment on above: Reference Range: 36. 0 - 46.0 Hemoglobin (Bld) [Mass/Vol] 13.4 g/dL See Below [facility] Work Phone: Comment on above: Reference Range: 12. 0 - 16.0 Lymphocytes/100 WBC (Bld) 24.3 % See Below [facility] Work Phone: Comment on above: Reference Range: 13. 0 - 44.0 MCHC (RBC) [Mass/Vol] 33.3 g/dL See Below [facility] Work Phone: Comment on above: Reference Range: 32. 0 - 36.0 MCV (RBC) [Entitic vol] 90 fL 80 - 100 [facility] Work Phone: Monocytes/100 WBC (Bld) 8.4 % 2.0 - 10.0 [facility] Work Phone: Neutrophils/100 WBC (Bld) 65.1 % See Below [facility] Work Phone: Comment on above: Reference Range: 40. 0 - 80.0 Platelets (Bld) [#/Vol] 134 10*3/uL below low threshold 150 - 450 [facility] Work Phone: Comment on above: Platelet count verif ied by smear review. no plt clumps or clots seen RBC (Bld) [#/Vol] 4.47 {x10E12/L} See Below [facility] Work Phone: Comment on above: Reference Range: 4.0 0 - 5.20 WBC (Bld) [#/Vol] 6.9 10*3/uL 4.4 - 11.3 [facility] [place] Work Phone: Complete Blood Count + Differential 0.02 {x10E9/L} See Below [facility] Work Phone: Comment on above: Reference Range: 0.0 0 - 0.10 Complete Blood Count + Differential 0.08 {x10E9/L} See Below [facility] Work Phone: Comment on above: Reference Range: 0.0 0 - 0.70 Complete Blood Count + Differential 0.58 {x10E9/L} See Below [facility] Work Phone: Comment on above: Reference Range: 0.1 0 - 1.00 Complete Blood Count + Differential 1.68 {x10E9/L} See Below [facility] Work Phone: Comment on above: Reference Range: 1.2 0 - 4.80 Complete Blood Count + Differential 4.50 {x10E9/L} See Below [facility] Work Phone: Comment on above: Reference Range: 1.2 0 - 7.70 Percent differential counts (%) should be interpreted in the context of the absolute cell counts (cells/L). Complete Blood Count + Differential 1.2 % 0.0 - 6.0 [facility] Work Phone: Complete Blood Count + Differential 0.7 % 0.0 - 0.9 [facility] Work Phone: Comment on above: Immature Granulocyte Count (IG) includes promyelocytes, myelocytes and metamyelocytes but does not include bands. Percent differential counts (%) should be interpreted in the context of the absolute cell counts (cells/L). LACTATEon 11-26-2022 Lactate [Moles/Vol] 1.9 mmol/L Normal 0.4 - 2.0 [facility] Comment on above: Result Comment: Nathalie puncture immediately after or during the administration of Metamizole may lead to falsely low results. Testing should be performed immediately prior to Metamizole dosing. Performed By: #### L ACT ####[address] [address] LIPASEon 11-26-2022 Lipase [Catalytic activity/Vol] 59 U/L Normal 9 - 82 [facility] Comment on above: Result Comment: Nathalie puncture immediately after or during the administration of Metamizole may lead to falsely low results. Testing should be performed immediately prior to Metamizole dosing. A-ucglxf-c-benzoquinone imine (metabolite of Acetaminophen) will generate erroneously low results in samples for patients that have taken toxic doses of acetaminophen. Performed By: #### L IPAS ####[address] [address] Laboratory - Chemistry and C hemistry - challengeon 11-26-2022 Albumin BCP dye [Mass/Vol] 4.0 g/dL 3.4 - 5.0 [facility] [place] Work Phone: ALP [Catalytic activity/Vol] 69 U/L 33 - 110 [facility] Work Phone: ALT With P-5'-P [Catalytic activity/Vol] 17 U/L 7 - 45 [facility] Work Phone: Comment on above: Patients treated wit h Sulfasalazine may generate falsely decreased results for ALT. Anion gap [Moles/Vol] 13 mmol/L 10 - 20 [facility] [place] Work Phone: AST With P-5'-P [Catalytic activity/Vol] 20 U/L 9 - 39 [facility] [place] Work Phone: Bilirubin [Mass/Vol] 0.3 mg/dL 0.0 - 1.2 [facility] [place] Work Phone: Calcium [Mass/Vol] 9.2 mg/dL 8.6 - 10.3 [facility] [facility] Work Phone: Chloride [Moles/Vol] 101 mmol/L 98 - 107 [facility] Work Phone: CO2 [Moles/Vol] 27 mmol/L 21 - 32 [facility] Work Phone: Creatinine [Mass/Vol] 1.47 mg/dL above high threshold See Below [facility] Work Phone: Comment on above: Reference Range: 0.5 0 - 1.05 Glucose [Mass/Vol] 89 mg/dL 74 - 99 [facility] [facility] Work Phone: Potassium [Moles/Vol] 3.9 mmol/L 3.5 - 5.3 [facility] Work Phone: Protein [Mass/Vol] 6.6 g/dL 6.4 - 8.2 [facility] Work Phone: Sodium [Moles/Vol] 137 mmol/L 136 - 145 [facility] Work Phone: Urea nitrogen [Mass/Vol] 22 mg/dL 6 - 23 [facility] Work Phone: Lactate, Levelon 11-26-2022 Lactate [Moles/Vol] 1.9 mmol/L 0.4 - 2.0 [facility] [facility] Work Phone: Comment on above: Venipuncture immedia tely after or during the administration of Metamizole may lead to falsely low results. Testing should be performed immediately prior to Metamizole dosing. Lipase, Serumon 11-26-2022 Lipase [Catalytic activity/Vol] 59 U/L 9 - 82 [facility] Work Phone: Comment on above: Venipuncture immedia tely after or during the administration of Metamizole may lead to falsely low results. Testing should be performed immediately prior to Metamizole dosing. O-hgsnzx-f-benzoquinone imine (metabolite of Acetaminophen) will generate erroneously low results in samples for patients that have taken toxic doses of acetaminophen. MAGNESIUMon 11-26-2022 Magnesium [Mass/Vol] 1.37 mg/dL Low 1.60 - 2.40 [facility] Comment on above: Performed By: #### M G ####[address] [address] MAGNESIUM Canceled Normal [facility] Comment on above: Order Comment: TEST MAGNESIUM WAS CANCELLED, 11/26/2022 15:49 DUPLICATE ORDER. Performed By: #### M G ####[address] [address] Magnesium, Serumon Magnesium [Mass/Vol] Canceled [facility] [place] Work Phone: Magnesium [Mass/Vol] 1.37 mg/dL below low threshold See Below [facility] [place] Work Phone: Comment on above: Reference Range: 1.6 0 - 2.40 No Panel Informationon 11-26 43 {mL/min/1.73m2} Abnormal >90 [facility] [place] Work Phone: Comment on above: CALCULATIONS OF FRIEDA MATED GFR ARE PERFORMED USING THE 2020 CKD-EPI STUDY REFIT EQUATION WITHOUT THE RACE VARIABLE FOR THE IDMS-TRACEABLE CREATININE METHODS.https://jasn.asnjournals.org/content/early// N.6502775808 Provider Note - ED v3on 0 Provider Note - ED v3 Normal [facility] Risk Screen - Adult Emergenc yon 11-26-2022 Risk Screen - Adult Emergency Normal [facility] TSHon 11-26-2022 TSH Qn 2.41 m[IU]/L Normal 0.44 - 3.98 [facility] Comment on above: Result Comment: TSH testing is performed using different testing methodology at [facility] than at other [facility]. Direct result comparisons should only be made within the same method. Performed By: #### T SH2 ####[address] [address] TSH - Thyroid Stimulating Ho contreras, Serumon 11-26-2022 TSH Qn 2.41 m[IU]/L See Below [facility] Work Phone: Comment on above: Reference Range: 0.4 4 - 3.98 TSH testing is performed using different testing methodology at [facility] than at other [facility]. Direct result comparisons should only be made within the same method. Triage - EDon 11-26-2022 Triage - ED Normal [facility] URINALYSIS WITH CULTURE IF I NDICATEDon 11-26-2022 Appearance (U) Canceled [facility] Comment on above: Order Comment: TEST URINALYSIS WITH CULTURE IF INDICATED WAS CANCELLED, 11/26/2022 21:55discharged. Performed By: #### U ARFX ####[address] [address] ASCORBIC [address] Canceled [facility] Comment on above: Order Comment: TEST URINALYSIS WITH CULTURE IF INDICATED WAS CANCELLED, 11/26/2022 21:55discharged. Result Comment: Conc entrations > = 20 mg/dL of ascorbic acid can be expected to cause stronginterference in the reactions testing for glucose, nitrite and blood. It isrecommended to discontinue Vitamin C administration and retest in 10 hours. Performed By: #### U ARFX ####[address] [address] Bilirubin Ql (U) Canceled [facility] Comment on above: Order Comment: TEST URINALYSIS WITH CULTURE IF INDICATED WAS CANCELLED, 11/26/2022 21:55discharged. Performed By: #### U ARFX ####[address] [address] Color (U) Canceled [facility] Comment on above: Order Comment: TEST URINALYSIS WITH CULTURE IF INDICATED WAS CANCELLED, 11/26/2022 21:55discharged. Performed By: #### U ARFX ####[address] [address] Glucose Ql (U) Canceled [facility] Comment on above: Order Comment: TEST URINALYSIS WITH CULTURE IF INDICATED WAS CANCELLED, 11/26/2022 21:55discharged. Performed By: #### U ARFX ####[address] [address] Hemoglobin Ql (U) Canceled [facility] Comment on above: Order Comment: TEST URINALYSIS WITH CULTURE IF INDICATED WAS CANCELLED, 11/26/2022 21:55discharged. Performed By: #### U ARFX ####[address] [address] Ketones Ql (U) Canceled [facility] Comment on above: Order Comment: TEST URINALYSIS WITH CULTURE IF INDICATED WAS CANCELLED, 11/26/2022 21:55discharged. Performed By: #### U ARFX ####[address] [address] Leukocyte esterase Test strip Ql (U) Canceled [facility] Comment on above: Order Comment: TEST URINALYSIS WITH CULTURE IF INDICATED WAS CANCELLED, 11/26/2022 21:55discharged. Performed By: #### U ARFX ####[address] [address] Nitrite Ql (U) Canceled [facility] Comment on above: Order Comment: TEST URINALYSIS WITH CULTURE IF INDICATED WAS CANCELLED, 11/26/2022 21:55discharged. Performed By: #### U ARFX ####[address] [facility] Comment on above: Order Comment: TEST URINALYSIS WITH CULTURE IF INDICATED WAS CANCELLED, 11/26/2022 21:55discharged. Performed By: #### U ARFX ####[address] [address] Protein Ql (U) Canceled [facility] Comment on above: Order Comment: TEST URINALYSIS WITH CULTURE IF INDICATED WAS CANCELLED, 11/26/2022 21:55discharged. Performed By: #### U ARFX ####[address] [address] Specific gravity (U) [Rel density] Canceled Normal [facility] Comment on above: Order Comment: TEST URINALYSIS WITH CULTURE IF INDICATED WAS CANCELLED, 11/26/2022 21:55discharged. Performed By: #### U ARFX ####[address] [address] [address] [facility] Comment on above: Order Comment: TEST URINALYSIS WITH CULTURE IF INDICATED WAS CANCELLED, 11/26/2022 21:55discharged. Performed By: #### U ARFX ####[address] [address] Office Visit (Cardiology)on 11-25-2022 Follow-up visit Diagnoses/Problems Assessed History of acute renal failure (V13.09) (Z87.448) Body mass index (BMI) of 38.0 to 38.9 in adult (V85.38) (Z68.38) Dizziness (780.4) (R42) Falls (E888.9) (W19.XXXA) Medication management (V58.69) (Z79.899) Seizure (780.39) (R56.9) Orders History of acute renal failure Nephrology Referral Evaluation and Treatment Evaluate AND Treat Status: Hold For - Scheduling Requested for: [id number] Seizure Neurology - General Referral Evaluation and Treatment Evaluate AND Treat Status: Hold For - Scheduling Requested for: [id number] Unlinked Stop: hydroCHLOROthiazide 12.5 MG Oral Capsule History of Present Illness Reema Shah is a 47-year-old female with a h/o anxiety, obesity, depression, epilepsy, GERD, hypercholesterolemia, HTN, and falls presenting for review of previous testing. Cardiac hx includes: 1. Vasovagal episodes -Echo displayed a normal EF of 60% and a pseudonormal pattern of left ventricular diastolic filling -A 3-day monitor was ordered to rule out any underlying arrhythmias which was normal with no abnormal rhythms detected. -Patient reports occasional episodes of dizziness with changing positions. BP not currently checked at the [facility] and patient hypotensive in the office. In further conversation, patient reports a history of acute renal failure approximately 22 years ago and requesting to see a cuff maker to establish care. She also is not happy with her current Neurologist in [place] and would like a referral placed to Dr. Valentina Chopra (previous Neurologist) to better manage her seizure medications. Patient denies any chest pain/pressure/discomfor t or SOB. She does report occasional swelling in her lower extremities and she reports elevating her feet when she is back in her apartment. Active Problems Problems Abdominal pain, acute (789.00,338.19) (R10.9) Abdominal pain, acute, right upper quadrant (789.01,338.19) (R10.11) Anxiety (300.00) (F41.9) Back pain (724.5) (M54.9) Bacterial vaginosis (616.10,041.9) (N76.0,B96.89) Body mass index (BMI) of 38.0 to 38.9 in adult (V85.38) (Z68.38) Chronic low back pain (724.2,338.29) (M54.50,G89.29) Compression fracture of T5 vertebra (805.2) (S22.050A) Constipation (564.00) (K59.00) Depression, major, single episode, severe (296.23) (F32.2) Dizziness (780.4) (R42) Encounter for routine checking of intrauterine contraceptive device (IUD) (V25.42) (Z30.431) Excess ear wax (380.4) (H61.20) Falls (E888.9) (W19.XXXA) Fatty liver (571.8) (K76.0) Generalized epilepsy (345.90) (G40.309) GERD (gastroesophageal reflux disease) (530.81) (K21.9) Hypercholesterolemia (272.0) (E78.00) Hyperglycemia (790.29) (R73.9) Hypertension (401.9) (I10) Hypokalemia (276.8) (E87.6) Knee pain (719.46) (M25.569) Medication management (V58.69) (Z79.899) Migraines (346.90) (G43.909) Morbid obesity (278.01) (E66.01) Morbid obesity with BMI of 40.0-44.9, adult (278.01,V85.41) (E66.01,Z68.41) Nasal bone fracture (802.0) (S02.2XXA) Neck pain (723.1) (M54.2) Osteopenia (733.90) (M85.80) Otalgia of both ears (388.70) (H92.03) Otitis media, right (382.9) (H66.91) Palpitation (785.1) (R00.2) Pelvic pain in female (625.9) (R10.2) Scalp hematoma (920) (S00.03XA) Screening for breast cancer (V76.10) (Z12.39) Screening for cervical cancer (V76.2) (Z12.4) Screening for cervical cancer (V76.2) (Z12.4) Seizure (780.39) (R56.9) Sinusitis (473.9) (J32.9) Status post fall (V15.88) (Z91.81) Thrombocytopenia (287.5) (D69.6) Tinea (110.9) (B35.9) Tinea corporis (110.5) (B35.4) Tremor (781.0) (R25.1) Vaginal discharge (623.5) (N89.8) Widebased gait (781.2) (R26.89) Women's annual routine gynecological examination (V72.31) (Z01.419) Surgical History Problems History of Breast reduction History of Breast Surgery Reduction Procedure History of Intrauterine device placement 09/25/2019: Nael Past Medical History Problems H/O mammogram (V15.89) (Z92.89) 03/06/2022; BENIGN 02/21/2021- benign History of Hepatic Failure (570) Based on patient's description. Now resolved. History of anemia (V12.3) (Z86.2) now resolved History of blood transfusion (V15.89) (Z92.89) History of chronic kidney disease (V13.09) (Z87.448) Cr wsa 1.5 on 11/13/2014 History of congestive heart failure (V12.59) (Z86.79) History of hypertension (V12.59) (Z86.79) History of seizure (V13.89) (Z87.898) History of vaginal delivery (V13.29) 09/15/1997; 34 WEEKS; FEMALE; 4LBS 3OZ History of Influenza vaccination declined (V64.06) (Z28.21) History of Menarche (V21.8) History of Pap test, as part of routine gynecological examination (V76.2) (Z01.419) 01/29/2021; COTEST NEG 09/30/17; NIL History of Pelvic pain in female (625.9) (R10.2) Resolved Date: 01 Jul 2021 History of Pelvic pain in female (625.9) (R10.2) Resolved Date: 01 Jul 2021 History of Pelvic pain in female (625.9) (R10.2) Resolved Date: Jun (more content not included)... Normal [employer] Tobacco Screening.on 023 Fall risk assessment b) One or more fall s in the last year [place] Work Phone: Tobacco use status [facility] b) No [place] Work Phone: Office Visit (Internal Medic ine)on 11-23-2022 Follow-up visit Diagnoses/Problems Assessed Sinusitis (473.9) (J32.9) Orders Sinusitis Start: levoFLOXacin 500 MG Oral Tablet; TAKE 1 TABLET DAILY DIRECTED Rx By: Jeanie Ayala; Dispense: 7 Days ; #:7 Tablet; Refill: 0;For: Sinusitis; SHARLENE = N; Sent To: [facility] Patient Discussion/Summary F/U 1 M Provider Impressions PT. WAS INSTRUCTED TO INCREASE FLUID INTAKE ,TAKE TYLENOL 650 MG PO Q6H/PRN FOR PAIN OR FEVER AND TAKE ROBITUSSIN OTC 2 TSP Q 6H/PRN FOR COUGH. TO HAVE HOME COVID TEST DONE TODAY AND CALL WITH REPORT Chief Complaint An interactive audio and video telecommunication system which permits real time communications between the patient (at the originating site) and provider (at the distant site) was utilized to provide this telehealth service. Verbal consent was requested and obtained from REEMA SHAH on this date, 11/23/2022 03:15 PM , for a telehealth visit. PT CO SINUS CONGESTION SOME COUGH DENIES FEVER AND SORE THROAT THIS HAS BEEN ONGOING FOR 2 WKS SHE HAS NOT BEEN TESTED FOR COVID History of Present IllnessPT C/O SINUS CONGESTION DRAINAGE AND PRESSURE, PRODUCTIVE COUGH FOR COUPLE OF WEEKS SEVERITY:MODERATE CHARACTERISTIC: ACUTE EXACERBATION FACTOR: NONE RELIEVING FACTOR: NONE ASSOCIATED SYMPTOMS: NAUSEA AND VOMITING DUE TO DRAINAGE, NO FEVER NO CHILLS, NO SOB PRIOR TX: COUGH SYRP, TYLENOL Scores and Scales PHQ-9 07Jan2022 11:48AM PHQ-9 #1. Little interest or pleasure in doing things3-Nearly every day PHQ-9 #2. Feeling down, depressed, or hopelesS3-Nearly every day PHQ-9 #3. Trouble falling or staying asleep, or sleeping too much3-Nearly every day PHQ-9 #4. Feeling tired or having little energy3-Nearly every day PHQ-9 #5. Poor appetite or overeating3-Nearly every day PHQ-9 #6. Feeling bad about yourself or you are a failure or that you have let yourself or your family down2-More than half the days PHQ-9 #7. Trouble concentrating on things, such as reading the newspaper or watch television2-More than half the days PHQ-9 #8. Moving or speaking so slowly that other people could have noticed. Or the opposite-being so fidgety or restless that you have been moving around a lot more than usual2-More than half the days PHQ-9 #9. Thoughts that you would be better off , or of hurting yourself0-Not at all PHQ-9 #10. If you checked off any problems, how difficult have these problems made it for you to do your work, take care of things at home, or get along with other people?Extremely Difficult PHQ-9 Total Score (Please update problem list based on total score)21 PHQ-9 Depression SeveritySevere (20-27) Active Problems Problems Abdominal pain, acute (789.00,338.19) (R10.9) Abdominal pain, acute, right upper quadrant (789.01,338.19) (R10.11) Anxiety (300.00) (F41.9) Back pain (724.5) (M54.9) Bacterial vaginosis (616.10,041.9) (N76.0,B96.89) Body mass index (BMI) of 38.0 to 38.9 in adult (V85.38) (Z68.38) Chronic low back pain (724.2,338.29) (M54.50,G89.29) Compression fracture of T5 vertebra (805.2) (S22.050A) Constipation (564.00) (K59.00) Depression, major, single episode, severe (296.23) (F32.2) Dizziness (780.4) (R42) Encounter for routine checking of intrauterine contraceptive device (IUD) (V25.42) (Z30.431) Excess ear wax (380.4) (H61.20) Falls (E888.9) (W19.XXXA) Fatty liver (571.8) (K76.0) Generalized epilepsy (345.90) (G40.309) GERD (gastroesophageal reflux disease) (530.81) (K21.9) Hypercholesterolemia (272.0) (E78.00) Hyperglycemia (790.29) (R73.9) Hypertension (401.9) (I10) Hypokalemia (276.8) (E87.6) Knee pain (719.46) (M25.569) Medication management (V58.69) (Z79.899) Migraines (346.90) (G43.909) Morbid obesity (278.01) (E66.01) Morbid obesity with BMI of 40.0-44.9, adult (278.01,V85.41) (E66.01,Z68.41) Nasal bone fracture (802.0) (S02.2XXA) Osteopenia (733.90) (M85.80) Otalgia of both ears (388.70) (H92.03) Otitis media, right (382.9) (H66.91) Palpitation (785.1) (R00.2) Pelvic pain in female (625.9) (R10.2) Scalp hematoma (920) (S00.03XA) Screening for breast cancer (V76.10) (Z12.39) Screening for cervical cancer (V76.2) (Z12.4) Screening for cervical cancer (V76.2) (Z12.4) Seizure (780.39) (R56.9) Status post fall (V15.88) (Z91.81) Thrombocytopenia (287.5) (D69.6) Tinea (110.9) (B35.9) Tinea corporis (110.5) (B35.4) Tremor (781.0) (R25.1) Vaginal discharge (623.5) (N89.8) Widebased gait (781.2) (R26.89) Women's annual routine gynecological examination (V72.31) (Z01.419) Past Medical History Problems H/O mammogram (V15.89) (Z92.89) 03/06/2022; BENIGN 02/21/2021- benign History of Hepatic Failure (570) Based on patient's description. Now resolved. History of anemia (V12.3) (Z86.2) now resolved History of blood transfusion (V15.89) (Z92.89) History of chronic kidney disease (V13.09) (Z87.448) Cr wsa 1.5 on 11/13/2014 History of congestive heart failure (V12.59) (Z86.79) History of hypertensi (more content not included)... Normal [employer] Tobacco Screening.on 023 Fall risk assessment b) One or more fall s in the last year [facility] Work Phone: Tobacco use status CPHS b) No [facility] Work Phone: Narrative Note - Outpatient- CPS for bubble study and definiton 11-12-2022 Narrative Note - Outpatient-CPS for bubble study and definit Normal [facility] Chart Updateon 11-10-2022 Chart Update Diagnoses/Problems Falls (E888.9) (W19.XXXA) Knee pain (719.46) (M25.569) Widebased gait (781.2) (R26.89) Orders Falls, Knee pain, Widebased gait Physical Therapy - Aquatic Referral Evaluation and Treatment Evaluate AND Treat Please send eval and updates for review Status: Hold For - Scheduling Requested for: 10Nov2022 Ordered;For: Falls, Knee pain, Widebased gait; Ordered By: Reanna Kemp Performed: Due: 08Feb2023 Chart Update PT note received from home PT company, reviewed most recent therapy visit note from 11/03/2022. Patient does walk with a rolling walker up to 45 feet with contact-guard assist, positive body tremors noted and steps are symmetrical with adequate clearance. [facility] goal of ambulating up to 100 feet and short-term goal to 50 feet on even surfaces with rollator. No changes to anticipated addition of aquatic therapy to improve strengthening. Staff to scan and PT notes for review at next visit. Signatures Electronically signed by : Reanna Kemp APRN-CHAYA; Nov 16 2022 12:07PM EST (Author) Normal [employer] Established Visit (Orthopaed ic Surgery)on 11-10-2022 Established Visit (Orthopaedic Surgery) Diagnoses/Problems Assessed Falls (E888.9) (W19.XXXA) Knee pain (719.46) (M25.569) Widebased gait (781.2) (R26.89) Orders Falls, Knee pain, Widebased gait Physical Therapy - Aquatic Referral Evaluation and Treatment Evaluate AND Treat Please send eval and updates for review Status: Hold For - Scheduling Requested for: 10Nov2022 Patient Discussion/Summary 1. Requested assisted living or PT company submit notes to monitor progress of right knee rehab and gait assessment, will have WEATHER [facility]ECASTER follow with facility as this will help with further treatment plans 2. Discussed cortisone or gel injecitons in the future after trial of Aquatic PT for strengthening. 3. Wear hinged knee brace with weightbearing activity, reinstructed on application and removal 4. Okay to change topical Biofreeze to IcyHot, use per package instructions, this is noted on the SOAP note. This note was generated using [employer] software. It may contain errors in wording, punctuation or spelling. Provider Impressions R knee pain and unsteady, ataxic gait, frequent falls Chief Complaint PATIENT PRESENTS TO OFFICE FOR : 2 MO F/U RIGHT KNEE IMPROVED: SOMEWHAT PAIN: 8/10 PAIN MEDS TAKEN: ES TYLENOL ROM: LIMITED ICE / HEAT APPLIED: NO BRACE WORN: YES LAST INJECTION: REFERRAL: 09/16/22 . History of Present Illness Agree with CC as noted. Rosa Elena is a pleasant 47-year-old female accompanied by staff member from the assisted living for reevaluation of right knee pain. Patient did get a cortisone shot 2 months ago which she does believe helps with the pain, she reports she is getting PT and denies any new injuries or falls. Patient does wear the knee brace with activity, however it is noted to be applied backwards. Patient does not have any updates from her therapy she is receiving at the assisted living facility. Patient does use Tylenol which does seem to help, patient states she has Biofreeze which helps some but she wants to switch to IcyHot because she believes this provides better relief. Review of Systems Constitutional: no fever, no chills and not feeling tired. ENT: no recent cough or URI sx, no nosebleeds. Cardiovascular: no chest pain. Respiratory: no shortness of breath and no cough. Gastrointestinal: no abdominal pain, no nausea, no vomiting and no diarrhea. Integumentary: no rashes or skin wounds. Neurological: no headache. Psychiatric: no depression and no sleep disturbances. Endocrine: no muscle weakness and no muscle cramps. Hematologic/Lymphatic: no swollen glands and no tendency for easy bruising. All other systems have been reviewed and are negative other than noted in HPI. *Active Problems Problems Abdominal pain, acute (789.00,338.19) (R10.9) Abdominal pain, acute, right upper quadrant (789.01,338.19) (R10.11) Anxiety (300.00) (F41.9) Back pain (724.5) (M54.9) Bacterial vaginosis (616.10,041.9) (N76.0,B96.89) Body mass index (BMI) of 38.0 to 38.9 in adult (V85.38) (Z68.38) Chronic low back pain (724.2,338.29) (M54.50,G89.29) Compression fracture of T5 vertebra (805.2) (S22.050A) Constipation (564.00) (K59.00) Depression, major, single episode, severe (296.23) (F32.2) Encounter for routine checking of intrauterine contraceptive device (IUD) (V25.42) (Z30.431) Excess ear wax (380.4) (H61.20) Falls (E888.9) (W19.XXXA) Fatty liver (571.8) (K76.0) Generalized epilepsy (345.90) (G40.309) GERD (gastroesophageal reflux disease) (530.81) (K21.9) Hypercholesterolemia (272.0) (E78.00) Hyperglycemia (790.29) (R73.9) Hypertension (401.9) (I10) Hypokalemia (276.8) (E87.6) Knee pain (719.46) (M25.569) Medication management (V58.69) (Z79.899) Migraines (346.90) (G43.909) Morbid obesity (278.01) (E66.01) Morbid obesity with BMI of 40.0-44.9, adult (278.01,V85.41) (E66.01,Z68.41) Nasal bone fracture (802.0) (S02.2XXA) Osteopenia (733.90) (M85.80) Otalgia of both ears (388.70) (H92.03) Otitis media, right (382.9) (H66.91) Palpitation (785.1) (R00.2) Pelvic pain in female (625.9) (R10.2) Scalp hematoma (920) (S00.03XA) Screening for breast cancer (V76.10) (Z12.39) Screening for cervical cancer (V76.2) (Z12.4) Screening for cervical cancer (V76.2) (Z12.4) Seizure (780.39) (R56.9) Status post fall (V15.88) (Z91.81) Thrombocytopenia (287.5) (D69.6) Tinea (110.9) (B35.9) Tinea corporis (110.5) (B35.4) Tremor (781.0) (R25.1) Vaginal discharge (623.5) (N89.8) Widebased gait (781.2) (R26.89) Women's annual routine gynecological examination (V72.31) (Z01.419) Dizziness (780.4) (R42) Past Medical History Problems H/O mammogram (V15.89) (Z92.89) 03/06/2022; BENIGN 02/21/2021- benign History of Hepatic Failure (570) Based on patient's description. Now resolved. History of anemia (V12.3) (Z86.2) now resolved History of blood transfusion (V1.) (Z92.89) History of chronic kidney disease (V13.09) (Z87.448) Cr wsa 1.5 on 11/13/2014 History of congestive heart (more content not included)... Normal [employer] Tobacco Screening.on 023 Fall risk assessment b) One or more fall s in the last year [facility] Work Phone: Tobacco use status CPHS b) No [facility] Work Phone: Office Visit (Cardiology)on 11-05-2022 Follow-up visit Diagnoses/Problems Assessed Family history of Diabetes Mellitus (V18.0) : Family History mother Palpitation (785.1) (R00.2) Dizziness (780.4) (R42) Orders Dizziness Echocardiogram; Status:Hold For - Scheduling; Requested for:05Nov2022; Holter Monitor 3-14 Days; Status:Hold For - Scheduling; Requested for:05Nov2022; Palpitation IO EKG Electrocardiogram- 12 Lead; Status:Complete - Retrospective Authorization; Done: 05Nov2022 Chief Complaint Palpitations History of Present Pwbyzwi73-mmyw-yml lady with a medical history of hypertension, epilepsy, obesity here for evaluation of the following complaints: Dizziness -Patient notes that she has episodes where she heats up; and these happen 2-3 times a day and have been going on for the past few months; these are also associated with dizziness These are also associated with worsening blood pressure. Outside of these episodes she denies any exertional angina or shortness of breath. Denies any orthopnea/PND/lower extremity edema. Denies any syncopal episode Active Problems Problems Abdominal pain, acute (789.00,338.19) (R10.9) Abdominal pain, acute, right upper quadrant (789.01,338.19) (R10.11) Anxiety (300.00) (F41.9) Back pain (724.5) (M54.9) Bacterial vaginosis (616.10,041.9) (N76.0,B96.89) Body mass index (BMI) of 38.0 to 38.9 in adult (V85.38) (Z68.38) Chronic low back pain (724.2,338.29) (M54.50,G89.29) Compression fracture of T5 vertebra (805.2) (S22.050A) Constipation (564.00) (K59.00) Depression, major, single episode, severe (296.23) (F32.2) Dizziness (780.4) (R42) Encounter for routine checking of intrauterine contraceptive device (IUD) (V25.42) (Z30.431) Excess ear wax (380.4) (H61.20) Falls (E888.9) (W19.XXXA) Fatty liver (571.8) (K76.0) Generalized epilepsy (345.90) (G40.309) GERD (gastroesophageal reflux disease) (530.81) (K21.9) Hypercholesterolemia (272.0) (E78.00) Hyperglycemia (790.29) (R73.9) Hypertension (401.9) (I10) Hypokalemia (276.8) (E87.6) Knee pain (719.46) (M25.569) Medication management (V58.69) (Z79.899) Migraines (346.90) (G43.909) Morbid obesity (278.01) (E66.01) Morbid obesity with BMI of 40.0-44.9, adult (278.01,V85.41) (E66.01,Z68.41) Nasal bone fracture (802.0) (S02.2XXA) Osteopenia (733.90) (M85.80) Otalgia of both ears (388.70) (H92.03) Otitis media, right (382.9) (H66.91) Palpitation (785.1) (R00.2) Pelvic pain in female (625.9) (R10.2) Scalp hematoma (920) (S00.03XA) Screening for breast cancer (V76.10) (Z12.39) Screening for cervical cancer (V76.2) (Z12.4) Screening for cervical cancer (V76.2) (Z12.4) Seizure (780.39) (R56.9) Status post fall (V15.88) (Z91.81) Thrombocytopenia (287.5) (D69.6) Tinea (110.9) (B35.9) Tinea corporis (110.5) (B35.4) Tremor (781.0) (R25.1) Vaginal discharge (623.5) (N89.8) Widebased gait (781.2) (R26.89) Women's annual routine gynecological examination (V72.31) (Z01.419) Surgical History Problems History of Breast reduction History of Breast Surgery Reduction Procedure History of Intrauterine device placement 09/25/2019: Nael Past Medical History Problems H/O mammogram (V15.89) (Z92.89) 03/06/2022; BENIGN 02/21/2021- benign History of Hepatic Failure (570) Based on patient's description. Now resolved. History of anemia (V12.3) (Z86.2) now resolved History of blood transfusion (V15.89) (Z92.89) History of chronic kidney disease (V13.09) (Z87.448) Cr wsa 1.5 on 11/13/2014 History of congestive heart failure (V12.59) (Z86.79) History of hypertension (V12.59) (Z86.79) History of seizure (V13.89) (Z87.898) History of vaginal delivery (V13.29) 09/15/1997; 34 WEEKS; FEMALE; 4LBS 3OZ History of Influenza vaccination declined (V64.06) (Z28.21) History of Menarche (V21.8) History of Pap test, as part of routine gynecological examination (V76.2) (Z01.419) 01/29/2021; COTEST NEG 09/30/17; NIL History of Pelvic pain in female (625.9) (R10.2) Resolved Date: 01 Jul 2021 History of Pelvic pain in female (625.9) (R10.2) Resolved Date: 01 Jul 2021 History of Pelvic pain in female (625.9) (R10.2) Resolved Date: 14 Jul 2021 History of Renal failure (586) (N19) Based on patient's description. Now resolved. Current Meds Medication NameInstruction Acetaminophen 325 MG Oral TabletTAKE 1 TO 2 TABLETS EVERY 4 HOURS NEEDED Allopurinol 300 MG Oral TabletTAKE 1 TABLET DAILY. Artificial Tears 1 % Ophthalmic Solution2 DROPS BOTH EYES Q1HR PRN busPIRone HCl - 10 MG Oral TabletTAKE 1 TABLET 3 times daily PRN Calcium 600 +D High Potency 600-400 MG-UNIT TABSTake 1 tablet twice daily Gaby-Gest Antacid 500 MG Oral Tablet ChewableTake 1 tablet daily Clotrimazole-Betamethas one 1-0.05 % External CreamAPPLY AND RUB IN A THIN FILM TO AFFECTED AREAS TWICE DAILY.(AM AND PM). Clotrimazole-Betamethas one 1-0.05 % External CreamAPPLY AND RUB IN A THIN FILM TO AFFECTED AREAS TWICE DAILY.(AM AND PM). Debrox 6.5 % Otic (more content not included)... Normal [employer] Tobacco Screening.on 023 Fall risk assessment b) One or more fall s in the last year [facility] [place] Work Phone: Tobacco use status CPHS b) No [facility] [place] Work Phone: KEPPRAon 11-01-2022 KEPPRA 18 ug/mL Normal 10 - 40 [facility] Comment on above: Result Comment: Briv aracetam may falsely increase the amount of levetiracetam measured by this method. Serum levels should be confirmed by a valid chromatographic method for patients with these drugs co-present in circulation. Performed By: #### K EPPR ####[id number] [place] [address] CALCIUM, IONIZEDon CALCIUM, IONIZED 1.08 mmol/L Low 1.10 - 1.33 [facility] Comment on above: Performed By: #### I ONC1 ####[address] [address] CBC AND DIFFERENTIALon 10-31 % AUTOMATED IMMATURE GRAN 0.9 % Normal 0.0 - 0.9 [facility] Comment on above: Result Comment: Suze ture Granulocyte Count (IG) includes promyelocytes, myelocytes and metamyelocytes but does not include bands. Percent differential counts (%) should be interpreted in the context of the absolute cell counts (cells/L). Performed By: #### C BCDF ####[address] [address] Basophils (Bld) [#/Vol] 0.04 10*3/uL Normal 0.00 - 0.10 [facility] Comment on above: Performed By: #### C BCDF ####[address] [address] Eosinophils (Bld) [#/Vol] 0.12 10*3/uL Normal 0.00 - 0.70 [facility] Comment on above: Performed By: #### C BCDF ####[address] [address] Eosinophils/100 WBC (Bld) 1.2 % Normal 0.0 - 6.0 [facility] Comment on above: Performed By: #### C BCDF ####[address] [address] Lymphocytes (Bld) [#/Vol] 2.32 10*3/uL Normal 1.20 - 4.80 [facility] Comment on above: Performed By: #### C BCDF ####[address] [address] Monocytes (Bld) [#/Vol] 0.78 10*3/uL Normal 0.10 - 1.00 [facility] Comment on above: Performed By: #### C BCDF ####[address] [address] Neutrophils (Bld) [#/Vol] 6.32 10*3/uL Normal 1.20 - 7.70 [facility] Comment on above: Result Comment: Perc ent differential counts (%) should be interpreted in the context of the absolute cell counts (cells/L). Performed By: #### C BCDF ####[place] [id number] RBC 4.71 x10E12/L Normal 4.00 - 5.20 [facility] Comment on above: Performed By: #### C BCDF ####[place] [id number] COMPREHENSIVE PANELon 2022 Albumin [Mass/Vol] 4.2 g/dL Normal 3.4 - 5.0 [facility] Comment on above: Performed By: #### C MP ####[place] [id number] ALP [Catalytic activity/Vol] 71 U/L Normal 33 - 110 [facility] Comment on above: Performed By: #### C MP ####[address] [address] ALT [Catalytic activity/Vol] 17 U/L Normal 7 - 45 [facility] Comment on above: Result Comment: Marjan ents treated with Sulfasalazine may generate falsely decreased results for ALT. Performed By: #### C MP ####[address] [address] Anion gap [Moles/Vol] 15 mmol/L Normal 10 - 20 [facility] Comment on above: Performed By: #### C MP ####[place] [id number] AST [Catalytic activity/Vol] 22 U/L Normal 9 - 39 [facility] Comment on above: Performed By: #### C MP ####[address] [address] Bilirubin [Mass/Vol] 0.4 mg/dL Normal 0.0 - 1.2 [facility] Comment on above: Performed By: #### C MP ####[address] [address] Calcium [Mass/Vol] 9.3 mg/dL Normal 8.6 - 10.3 [facility] Comment on above: Performed By: #### C MP ####[address] [address] Chloride [Moles/Vol] 99 mmol/L Normal 98 - 107 [facility] Comment on above: Performed By: #### C MP ####[address] [address] Creatinine [Mass/Vol] 1.46 mg/dL High 0.50 - 1.05 [facility] Comment on above: Performed By: #### C MP ####[address] [address] GFR/1.73 sq M.predicted among non-blacks MDRD (S/P/Bld) [Vol rate/Area] 44 mL/min/{1.73_m2} Abnormal >90 [facility] Comment on above: Result Comment: CALC ULATIONS OF ESTIMATED GFR ARE PERFORMED USING THE 2020 CKD-EPI STUDY REFIT EQUATION WITHOUT THE RACE VARIABLE FOR THE IDMS-TRACEABLE CREATININE METHODS.https://jasn.asnjournals.org/content/early/ N.6885907016 Performed By: #### C MP ####[address] [address] Glucose [Mass/Vol] 101 mg/dL High 74 - 99 [facility] Comment on above: Performed By: #### C MP ####[address] [address] HCO3 (Bld) [Moles/Vol] 27 mmol/L Normal 21 - 32 [facility] Comment on above: Performed By: #### C MP ####[address] [address] Potassium [Moles/Vol] 3.5 mmol/L Normal 3.5 - 5.3 [facility] Comment on above: Performed By: #### C MP ####[address] [address] Protein [Mass/Vol] 6.9 g/dL Normal 6.4 - 8.2 [facility] Comment on above: Performed By: #### C MP ####[address] [address] Sodium [Moles/Vol] 137 mmol/L Normal 136 - 145 [facility] Comment on above: Performed By: #### C MP ####[address] [address] Urea nitrogen [Mass/Vol] 27 mg/dL High 6 - 23 [facility] Comment on above: Performed By: #### C MP ####[address] [address] CREATINE KINASEon 10-31-2022 CK [Catalytic activity/Vol] 59 U/L Normal 0 - 215 [facility] Comment on above: Performed By: #### C K ####[address] [address] Calcium, Ionized Levelon Calcium, Ionized Level 1.08 mmol/L below low threshold See Below [place] [address] [employer] Work Phone: Comment on above: Reference Range: 1.1 0 - 1.33 Complete Blood Count + Diffe rentialon 10-31-2022 Basophils/100 WBC (Bld) 0.4 % Normal 0.0 - 2.0 [place] [address] [employer] Work Phone: Comment on above: Performed By: #### C BCDF ####[address] [address] Erythrocyte distribution width (RBC) [Ratio] 13.1 % Normal 11.5 - 14.5 [place] [id number] [employer] Work Phone: Comment on above: Reference Range: 11. 5 - 14.5 Performed By: #### C BCDF ####[address] [address] Hematocrit (Bld) [Volume fraction] 42.3 % Normal 36.0 - 46.[address] Work Phone: Comment on above: Reference Range: 36. 0 - 46.0 Performed By: #### C BCDF ####[address] [address] Hemoglobin (Bld) [Mass/Vol] 14.1 g/dL Normal 12.0 - 16.[address] Work Phone: Comment on above: Reference Range: 12. 0 - 16.0 Performed By: #### C BCDF ####[address] [address] Lymphocytes/100 WBC (Bld) 24.0 % Normal 13.0 - 44.[address] Work Phone: Comment on above: Reference Range: 13. 0 - 44.0 Performed By: #### C BCDF ####[address] [address] MCHC (RBC) [Mass/Vol] 33.3 g/dL Normal 32.0 - 36.[address] Work Phone: Comment on above: Reference Range: 32. 0 - 36.0 Performed By: #### C BCDF ####[address] [address] MCV (RBC) [Entitic vol] 90 fL Normal 80 - [address] Work Phone: Comment on above: Performed By: #### C BCDF ####[address] [address] Monocytes/100 WBC (Bld) 8.1 % Normal 2.0 - 10.[address] Work Phone: Comment on above: Performed By: #### C BCDF ####[address] [address] Neutrophils/100 WBC (Bld) 65.4 % Normal 40.0 - 80.[address] Work Phone: Comment on above: Reference Range: 40. 0 - 80.0 Performed By: #### C BCDF ####[address] [address] Platelets (Bld) [#/Vol] 152 10*3/uL Normal 150 - [address] Work Phone: Comment on above: Performed By: #### C BCDF ####[address] [address] RBC (Bld) [#/Vol] 4.71 {x10E12/L} See Below [address] Work Phone: Comment on above: Reference Range: 4.0 0 - 5.20 WBC (Bld) [#/Vol] 9.7 10*3/uL Normal 4.4 - 11.3 [facility] diol[address] Work Phone: Comment on above: Performed By: #### C BCDF ####[address] [address] Complete Blood Count + Differential 0.04 {x10E9/L} See Below [address] Work Phone: Comment on above: Reference Range: 0.0 0 - 0.10 Complete Blood Count + Differential 0.12 {x10E9/L} See Below [address] Work Phone: Comment on above: Reference Range: 0.0 0 - 0.70 Complete Blood Count + Differential 0.78 {x10E9/L} See Below [address] Work Phone: Comment on above: Reference Range: 0.1 0 - 1.00 Complete Blood Count + Differential 2.32 {x10E9/L} See Below [address] Work Phone: Comment on above: Reference Range: 1.2 0 - 4.80 Complete Blood Count + Differential 6.32 {x10E9/L} See Below [address] Work Phone: Comment on above: Reference Range: 1.2 0 - 7.70 Percent differential counts (%) should be interpreted in the context of the absolute cell counts (cells/L). Complete Blood Count + Differential 1.2 % 0.0 - 6.[address] Work Phone: Complete Blood Count + Differential 0.9 % 0.0 - 0.[address] Work Phone: Comment on above: Immature Granulocyte Count (IG) includes promyelocytes, myelocytes and metamyelocytes but does not include bands. Percent differential counts (%) should be interpreted in the context of the absolute cell counts (cells/L). Creatine Kinase, Levelon CK [Catalytic activity/Vol] 59 U/L 0 - [address] Work Phone: Keppra, Levelon 10-31-2022 levETIRAcetam [Mass/Vol] 18 ug/mL 10 - [address] Work Phone: Comment on above: Brivaracetam may fal sely increase the amount of levetiracetam measured by this method. Serum levels should be confirmed by a valid chromatographic method for patients with these drugs co-present in circulation. LACTATEon 10-31-2022 Lactate [Moles/Vol] 2.2 mmol/L High 0.4 - 2.0 [facility] Comment on above: Result Comment: Nathalie puncture immediately after or during the administration of Metamizole may lead to falsely low results. Testing should be performed immediately prior to Metamizole dosing. Performed By: #### L ACT ####[facility] [place] [address] Laboratory - Chemistry and C hemistry - challengeon 10-31-2022 Albumin BCP dye [Mass/Vol] 4.2 g/dL 3.4 - 5.[address] Work Phone: ALP [Catalytic activity/Vol] 71 U/L 33 - 110 -[address] Work Phone: ALT With P-5'-P [Catalytic activity/Vol] 17 U/L 7 - [address] Work Phone: Comment on above: Patients treated wit h Sulfasalazine may generate falsely decreased results for ALT. Anion gap [Moles/Vol] 15 mmol/L 10 - [address] Work Phone: AST With P-5'-P [Catalytic activity/Vol] 22 U/L 9 - [address] Work Phone: Bilirubin [Mass/Vol] 0.4 mg/dL 0.0 - 1.2 -C [address] Work Phone: Calcium [Mass/Vol] 9.3 mg/dL 8.6 - 10.3 -[facility] Work Phone: Chloride [Moles/Vol] 99 mmol/L 98 - 107 -C ar[address] Work Phone: CO2 [Moles/Vol] 27 mmol/L 21 - 32 -Cardio logy[address] Work Phone: Creatinine [Mass/Vol] 1.46 mg/dL above high threshold See Below [address] Work Phone: Comment on above: Reference Range: 0.5 0 - 1.05 Glucose [Mass/Vol] 101 mg/dL above high threshold 74 - [address] Work Phone: Potassium [Moles/Vol] 3.5 mmol/L 3.5 - 5.[address] Work Phone: Protein [Mass/Vol] 6.9 g/dL 6.4 - 8.2 -[facility]- [place] [address] [address] Work Phone: Sodium [Moles/Vol] 137 mmol/L 136 - 145 MP-[facility] di[facility]- [address] Work Phone: Urea nitrogen [Mass/Vol] 27 mg/dL above high threshold 6 - 23 -[place] [address] [address] Work Phone: Lactate, Levelon 10-31-2022 Lactate [Moles/Vol] 2.2 mmol/L above high threshold 0.4 - 2.0 -[address] Work Phone: Comment on above: Venipuncture immedia tely after or during the administration of Metamizole may lead to falsely low results. Testing should be performed immediately prior to Metamizole dosing. No Panel Informationon 10-31 44 {mL/min/1.73m2} Abnormal >90 -[facility] Work Phone: Comment on above: CALCULATIONS OF FRIEDA MATED GFR ARE PERFORMED USING THE 2020 CKD-EPI STUDY REFIT EQUATION WITHOUT THE RACE VARIABLE FOR THE IDMS-TRACEABLE CREATININE METHODS.https://jasn.asnjournals.org/content// N.1969986217 Provider Note - ED v3on 10-18 Provider Note - ED v3 Normal [facility] Risk Screen - Adult Emergenc yon 10-31-2022 Risk Screen - Adult Emergency Normal [facility] Triage - EDon 10-31-2022 Triage - ED Normal [facility] Established Visit (Orthopaed ic Surgery)on 09-16-2022 Established Visit (Orthopaedic Surgery) Diagnoses/Problems Assessed Knee pain (719.46) (M25.569) Falls (E888.9) (W19.XXXA) Orders Knee pain Administered: Triamcinolone Acetonide 40 MG/ML Injection Suspension Patient Discussion/Summary Cortisone injection was administered to the right knee after assessment and discussion of risk and benefits. Patient tolerated well. Band-Aid to the site postinjection with no bleeding noted. Handwritten SOAP note was provided for assisted living at time of DC Including the followin. Have assisted living or PT company submit notes to monitor progress of right knee rehab and gait assessment 2. Follow-up in 2 months, sooner for changes or concerns 3. Wear hinged knee brace with weightbearing activity 4. Okay to change topical Biofreeze to IcyHot, use per package instructions. We will send copy of this note to patient's PCP, Dr. Ayala This note was generated using [employer] software. It may contain errors in wording, punctuation or spelling. Chief Complaint F/U BILAT KNEE PAIN PRIMARY R KNEE PAIN 9/10 History of Present Illness Reema is a pleasant 47-year-old female that arrives from assisted living for recheck of bilateral knee pain. Patient states her right knee is aggravated and current pain level of 9 out of 10. Patient states she fell on 08/24/2022 striking her head, right buttock and right hip. She denies any new injury to the knee. She was seen in the ED and recommended to follow-up as needed. Patient has been using the Voltaren gel and rotating with Biofreeze with some relief. She is requesting an IcyHot prescription instead of the Biofreeze. She feels this is worked better in the past. Patient is wearing the hinged knee brace with ambulation. She does states she is walking with her walker, very little patient states she has not received any PT on her knee but does have PT come to her apartment and work on her gait. There are no attendance with the patient today, there is no reflection of any PT notes in the packet from assisted living provided today. Review of Systems Constitutional: no fever, no chills and not feeling tired. ENT: no recent cough or URI sx, no nosebleeds. Cardiovascular: no chest pain. Respiratory: no shortness of breath and no cough. Gastrointestinal: no abdominal pain, no nausea, no vomiting and no diarrhea. Integumentary: no rashes or skin wounds. Neurological: no headache. Psychiatric: no depression and no sleep disturbances. Endocrine: no muscle weakness and no muscle cramps. Hematologic/Lymphatic: no swollen glands and no tendency for easy bruising. All other systems have been reviewed and are negative other than noted in HPI. Active Problems Problems Abdominal pain, acute (789.00,338.19) (R10.9) Abdominal pain, acute, right upper quadrant (789.01,338.19) (R10.11) Anxiety (300.00) (F41.9) Back pain (724.5) (M54.9) Bacterial vaginosis (616.10,041.9) (N76.0,B96.89) Body mass index (BMI) of 38.0 to 38.9 in adult (V85.38) (Z68.38) Chronic low back pain (724.2,338.29) (M54.50,G89.29) Compression fracture of T5 vertebra (805.2) (S22.050A) Constipation (564.00) (K59.00) Depression, major, single episode, severe (296.23) (F32.2) Dizziness (780.4) (R42) Encounter for routine checking of intrauterine contraceptive device (IUD) (V25.42) (Z30.431) Excess ear wax (380.4) (H61.20) Falls (E888.9) (W19.XXXA) Fatty liver (571.8) (K76.0) Generalized epilepsy (345.90) (G40.309) GERD (gastroesophageal reflux disease) (530.81) (K21.9) Hypercholesterolemia (272.0) (E78.00) Hyperglycemia (790.29) (R73.9) Hypertension (401.9) (I10) Hypokalemia (276.8) (E87.6) Knee pain (719.46) (M25.569) Medication management (V58.69) (Z79.899) Morbid obesity (278.01) (E66.01) Morbid obesity with BMI of 40.0-44.9, adult (278.01,V85.41) (E66.01,Z68.41) Nasal bone fracture (802.0) (S02.2XXA) Osteopenia (733.90) (M85.80) Otalgia of both ears (388.70) (H92.03) Otitis media, right (382.9) (H66.91) Palpitation (785.1) (R00.2) Pelvic pain in female (625.9) (R10.2) Scalp hematoma (920) (S00.03XA) Screening for breast cancer (V76.10) (Z12.39) Screening for cervical cancer (V76.2) (Z12.4) Screening for cervical cancer (V76.2) (Z12.4) Seizure (780.39) (R56.9) Status post fall (V15.88) (Z91.81) Thrombocytopenia (287.5) (D69.6) Tinea (110.9) (B35.9) Tinea corporis (110.5) (B35.4) Tremor (781.0) (R25.1) Vaginal discharge (623.5) (N89.8) Widebased gait (781.2) (R26.89) Women's annual routine gynecological examination (V72.31) (Z01.419) Past Medical History Problems H/O mammogram (V15.89) (Z92.89) 03/06/2022; BENIGN 02/21/2021- benign History of Hepatic Failure (570) Based on patient's description. Now resolved. History of anemia (V12.3) (Z86.2) now resolved History of blood transfusion (V15.89) (Z92.89) History of chronic kidney disease (V13.09) (Z87.448) Cr wsa 1.5 on 11/13/2014 History of congestive heart failure (V12.59) (Z86.79) History of hy (more content not included)... Normal [employer] Tobacco Screening.on 022 Fall risk assessment b) One or more fall s in the last year -[facility] Work Phone: Tobacco use status CPHS b) No -[facility] Work Phone: Office Visit (Internal Medic ine)on 09-15-2022 Follow-up visit Diagnoses/Problems Health Maintenance/Risks Encounter for preventive health examination (V70.0) (Z00.00) Assessed Anxiety (300.00) (F41.9) Generalized epilepsy (345.90) (G40.309) Hyperglycemia (790.29) (R73.9) Palpitation (785.1) (R00.2) Tinea (110.9) (B35.9) Orders Anxiety Renew: LORazepam 1 MG Oral Tablet; TAKE 2 TABLET Twice daily Rx By: Jeanie Ayala; Dispense: 30 Days ; #:120 Tablet; Refill: 2;For: Anxiety; SHARLENE = N; [facility]; Last Updated By: Meghana Zapata; 09/15/2022 9:57:31 AM Generalized epilepsy Valproic Acid Level, Serum; Status:Active - Retrospective By Protocol Authorization; Requested for:15Dec2022; Perform:Lab Services - Lab To Draw (Blood Test); Due:15Mar2023; Last Updated By:Nedra Rivera; 09/15/2022 10:04:15 AM;Ordered; For:Generalized epilepsy; Ordered By:Jeanie Ayala; Health Maintenance Dermatology Referral Evaluation and Treatment Evaluate AND Treat Status: Complete Done: 15Sep2022 Ordered;For: Health Maintenance; Ordered By: Jeanie Ayala Performed: Due: 14Dec2022; Last Updated By: Jimbo Mcmanus; 09/15/2022 10:11:29 AM [facility] Hyperglycemia Comprehensive Metabolic Panel; Status:Active - Retrospective By Protocol Authorization; Requested for:[id number]; Perform:Lab Services - Lab To Draw (Blood Test); Due:15Mar2023; Last Updated By:Nedra Rivera; 09/15/2022 10:04:15 AM;Ordered; For:Hyperglycemia; Ordered By:Jeanie Ayala; Palpitation Cardiology - General Referral Evaluation and Treatment Evaluate AND Treat Status: Complete Done: 15Sep2022 Ordered;For: Palpitation; Ordered By: Jeanie Ayala Performed: Due: 14Dec2022; Last Updated By: Jimbo Mcmanus; 09/15/2022 10:18:12 AM 11-05-[address] [facility] Patient Discussion/Summary F/U 3 MO CMP VALPORIC ACID Provider Impressions OARRS HAS BEEN REVIEWED AND IS CONSISTENT WITH PRESCRIBED MEDICATIONS, CONSIDERED THE RISK OF ABUSE, DEPENDENCE, ADDICTION AND DIVERSION, MEDICATION IS FELT TO BE CLINICALLY APPROPRIATE ON THE DOCUMENTED DIAGNOSIS Chief Complaint PT HERE FOR 1 MO F/U. PT WOULD LIKE A REFERRAL TO CARDIO AND DERMATOLOGY History of Present IllnessHERE FOR MED REFILL WANTS TO SEE CARDIO FOR OFF AND ON PALPITATIONS WANTS TO SEE DEVELOPMENT ASSISTANT FOR OFF AND ON RASH Scores and Scales PHQ-9 07Jan2022 11:48AM PHQ-9 #1. Little interest or pleasure in doing things3-Nearly every day PHQ-9 #2. Feeling down, depressed, or hopelesS3-Nearly every day PHQ-9 #3. Trouble falling or staying asleep, or sleeping too much3-Nearly every day PHQ-9 #4. Feeling tired or having little energy3-Nearly every day PHQ-9 #5. Poor appetite or overeating3-Nearly every day PHQ-9 #6. Feeling bad about yourself or you are a failure or that you have let yourself or your family down2-More than half the days PHQ-9 #7. Trouble concentrating on things, such as reading the newspaper or watch television2-More than half the days PHQ-9 #8. Moving or speaking so slowly that other people could have noticed. Or the opposite-being so fidgety or restless that you have been moving around a lot more than usual2-More than half the days PHQ-9 #9. Thoughts that you would be better off , or of hurting yourself0-Not at all PHQ-9 #10. If you checked off any problems, how difficult have these problems made it for you to do your work, take care of things at home, or get along with other people?Extremely Difficult PHQ-9 Total Score (Please update problem list based on total score)21 PHQ-9 Depression SeveritySevere (20-27) Review of Systems Constitutional: not feeling poorly, no fever, no recent weight gain and no recent weight loss. Eyes: no blurred vision and no diplopia. ENT: no hearing loss, no tinnitus, no earache, no sore throat, no hoarseness and no swollen glands in the neck. Cardiovascular: palpitations, but no chest pain, no tightness or heavy pressure, no shortness of breath and no lower extremity edema. Respiratory: no cough, not coughing up sputum and no wheezing that is consistent with asthma. Gastrointestinal: no change in bowel habits, no diarrhea, no constipation, no bloody stools, no nausea, no vomiting, no abdominal pain, no signs and symptoms of ulcer disease, no ligia colored stools and no intolerance to fatty foods. Genitourinary: no urinary frequency, no dysuria, no burning sensation during urination and no hematuria. Musculoskeletal: no arthralgias, no joint stiffness, no muscle weakness, no back pain and no difficulty walking. Skin: no rashes, no change in skin color and pigmentation, no skin lesions and no skin lumps. Neurological: no headaches, no dizziness, no seizures, no tingling, no numbness, no signs and symptoms of stroke and no limb weakness. Psychiatric: no confusion, no memory lapses or loss, no depression and no sleep disturbances. Endocrine: no goiter, no thyroid disorder, no diabetes mellitus, no excessive thirst, n (more content not included)... Normal [employer] Tobacco Screening.on 022 Fall risk assessment a) No falls within the last year [facility] Work Phone: Tobacco use status CPHS b) No [facility] Work Phone: CHEST 2 VIEW PA AND LATon CHEST 2 VIEW PA AND LAT Normal [facility] CT C Spine without Contrasto n 08-24-2022 CT Cervical spine WO contrast Normal [facility] Work Phone: CT HEAD WO CONTRASTon 2021 CT HEAD WO CONTRAST Normal [facility] CT Head without Contraston 1 10-24-2021 CT Head limited WO contrast Normal [facility] Work Phone: Complete Blood Count + Diffe rentialon 08-24-2022 Basophils/100 WBC (Bld) 0.2 % 0.0 - 2.0 [facility] Work Phone: Erythrocyte distribution width (RBC) [Ratio] 12.8 % See Below [facility] Work Phone: Comment on above: Reference Range: 11. 5 - 14.5 Hematocrit (Bld) [Volume fraction] 39.1 % See Below [facility] Work Phone: Comment on above: Reference Range: 36. 0 - 46.0 Hemoglobin (Bld) [Mass/Vol] 13.1 g/dL See Below [facility] Work Phone: Comment on above: Reference Range: 12. 0 - 16.0 Lymphocytes/100 WBC (Bld) 22.3 % See Below [facility] Work Phone: Comment on above: Reference Range: 13. 0 - 44.0 MCHC (RBC) [Mass/Vol] 33.5 g/dL See Below [facility] Work Phone: Comment on above: Reference Range: 32. 0 - 36.0 MCV (RBC) [Entitic vol] 88 fL 80 - 100 [facility] Work Phone: Monocytes/100 WBC (Bld) 8.4 % 2.0 - 10.0 [facility] Work Phone: Neutrophils/100 WBC (Bld) 66.3 % See Below [facility] Work Phone: Comment on above: Reference Range: 40. 0 - 80.0 Platelets (Bld) [#/Vol] 118 10*3/uL below low threshold 150 - 450 [facility] Work Phone: Comment on above: no platelet clumps s een RBC (Bld) [#/Vol] 4.45 {x10E12/L} See Below [facility] Work Phone: Comment on above: Reference Range: 4.0 0 - 5.20 WBC (Bld) [#/Vol] 5.8 10*3/uL 4.4 - 11.3 [facility] Work Phone: Complete Blood Count + Differential 0.01 {x10E9/L} See Below [facility] Work Phone: Comment on above: Reference Range: 0.0 0 - 0.10 Complete Blood Count + Differential 0.11 {x10E9/L} See Below [facility] Work Phone: Comment on above: Reference Range: 0.0 0 - 0.70 Complete Blood Count + Differential 0.49 {x10E9/L} See Below [facility] Work Phone: Comment on above: Reference Range: 0.1 0 - 1.00 Complete Blood Count + Differential 1.30 {x10E9/L} See Below [facility] Work Phone: Comment on above: Reference Range: 1.2 0 - 4.80 Complete Blood Count + Differential 3.87 {x10E9/L} See Below [facility] Work Phone: Comment on above: Reference Range: 1.2 0 - 7.70 Percent differential counts (%) should be interpreted in the context of the absolute cell counts (cells/L). Complete Blood Count + Differential 1.9 % 0.0 - 6.0 [facility] Work Phone: Complete Blood Count + Differential 0.9 % 0.0 - 0.9 [facility] Work Phone: Comment on above: Immature Granulocyte Count (IG) includes promyelocytes, myelocytes and metamyelocytes but does not include bands. Percent differential counts (%) should be interpreted in the context of the absolute cell counts (cells/L). Laboratory - Chemistry and C hemistry - challengeon 08-24-2022 Albumin BCP dye [Mass/Vol] 4.0 g/dL 3.4 - 5.0 [facility] Work Phone: ALP [Catalytic activity/Vol] 63 U/L 33 - 110 [facility] Work Phone: ALT With P-5'-P [Catalytic activity/Vol] 23 U/L 7 - 45 [facility] Work Phone: Comment on above: Patients treated wit h Sulfasalazine may generate falsely decreased results for ALT. Anion gap [Moles/Vol] 12 mmol/L 10 - 20 [facility] Work Phone: AST With P-5'-P [Catalytic activity/Vol] 21 U/L 9 - 39 [facility] Work Phone: Bilirubin [Mass/Vol] 0.3 mg/dL 0.0 - 1.2 [facility] Work Phone: Calcium [Mass/Vol] 9.2 mg/dL 8.6 - 10.3 [facility] Work Phone: Chloride [Moles/Vol] 102 mmol/L 98 - 107 [facility] Work Phone: CO2 [Moles/Vol] 30 mmol/L 21 - 32 [facility] Work Phone: Creatinine [Mass/Vol] 1.30 mg/dL above high threshold See Below [facility] Work Phone: Comment on above: Reference Range: 0.5 0 - 1.05 Glucose [Mass/Vol] 108 mg/dL above high threshold 74 - 99 [facility] Work Phone: Potassium [Moles/Vol] 3.4 mmol/L below low threshold 3.5 - 5.3 [facility] Work Phone: Protein [Mass/Vol] 6.6 g/dL 6.4 - 8.2 [facility] Work Phone: Sodium [Moles/Vol] 141 mmol/L 136 - 145 [facility] Work Phone: Urea nitrogen [Mass/Vol] 21 mg/dL 6 - 23 [facility] Work Phone: Lorazepam Level, Serumon LORazepam [Mass/Vol] 26 ng/mL below low threshold 50-240 [facility] Work Phone: Comment on above: INTERPRETIVE INFORMA TION: LorazepamDose-Related Range:50-240 ng/mL - Dose (Adult): 1-10 mg/dToxic: Greater than 300 ng/mLAdverse effects may include respiratory depression, sedation, dizziness, weakness and lethargy.Performed By: [facility] [place] [id number] Director: Ismael Castellon MD, PhD No Panel Informationon 08-24 50 {mL/min/1.73m2} Abnormal >90 [facility] Work Phone: Comment on above: CALCULATIONS OF FRIEDA MATED GFR ARE PERFORMED USING THE 2020 CKD-EPI STUDY REFIT EQUATION WITHOUT THE RACE VARIABLE FOR THE IDMS-TRACEABLE CREATININE METHODS.https://jasn.asnjournals.org/content/early/ N.6536010882 Provider Note - ED v3on Provider Note - ED v3 Normal [facility] Radiologyon 08-24-2022 XR Chest 2 Views Normal -[facility] Work Phone: XR Shoulder 2 Views Normal -[facility] Work Phone: Risk Screen - Adult Emergenc yon 08-24-2022 Risk Screen - Adult Emergency Normal [facility] SHOULDER, CMPLT, MIN 2 VIEWS on 08-24-2022 SHOULDER, CMPLT, MIN 2 VIEWS Normal [facility] Triage - EDon 08-24-2022 Triage - ED Normal [facility] Uric Acid, Serumon Urate [Mass/Vol] 5.5 mg/dL 2.3 - 6.7 [facility] Work Phone: Comment on above: Venipuncture immedia tely after or during the administration of Metamizole may lead to falsely low results. Testing should be performed immediately prior to Metamizole dosing. Valproic Acid Level, Serumon 08-24-2022 Valproate [Mass/Vol] 48 ug/mL below low threshold 50 - 100 [facility] Work Phone: Established Visit (Orthopaed ic Surgery)on 08-19-2022 Established Visit (Orthopaedic Surgery) Diagnoses/Problems Assessed Knee pain (719.46) (M25.569) Widebased gait (781.2) (R26.89) Patient Discussion/Summary Patient is to continue p.o. Tylenol as needed for pain as well as topical diclofenac gel 4 times daily as needed, she may also use the Biofreeze per package directions. I stressed it is important to initiate the PT as ordered at her previous visit from 07/15/2022 and that the facility send progress notes for her next checkup here in approximately 1 month. I discussed PT should address range of motion and strengthening of the bilateral knees and lower extremities as well as address her gait. Patient and aide in agreement with plan of care and to follow-up sooner for any changes or concerns. I provided a SOAP note and orders regarding PT to take back to her facility. This note was generated using [employer] software. It may contain errors in wording, punctuation or spelling. I did instruct both the patient and aide proper application of the hinged knee brace, they did take pictures of her references for the facility. Provider Impressions History, symptoms and assessment consistent with bilateral knee pain and unsteady, ataxic gait. Chief Complaint Follow-up) re-evaluation of bilateral knee pain. She states her pain is worse since her previous evaluation. R > L. She continues to wear a knee brace on the right knee. She is wheelchair bound. She states the topical nsaid she used provided short-term relief however she was advised to discontinue by her neurologist and he is trying a different medication she states. She is accompanied by an aid, Basim, for the visit. History of Present Illness Agree with CC as documented. Patient states her pain is worse since her last visit here. She reports PT has not been started to address her legs or knees. She notes she has been performing less activity since her last visit and noted some mild lower extremity edema. Patient states her neurologist DC'd the topical diclofenac but it was restarted yesterday per her PCP. She does get some relief for short-term with use of this on her knees. She also uses Biofreeze with moderate relief. Patient also states her p.o. ketorolac was recently discontinued and she noticed an increase in pain after that was changed. She denies any falls or new injuries. Patient states she has been advised to take Tylenol as needed for pain symptoms. She is accompanied by an aide from her assisted living for today's visit. Review of Systems Constitutional: no fever, no chills and not feeling tired. ENT: no recent cough or URI sx, no nosebleeds. Cardiovascular: no chest pain. Respiratory: no shortness of breath and no cough. Gastrointestinal: no abdominal pain, no nausea, no vomiting and no diarrhea. Integumentary: no rashes or skin wounds. Neurological: no headache. Psychiatric: no depression and no sleep disturbances. Endocrine: no muscle weakness and no muscle cramps. Hematologic/Lymphatic: no swollen glands and no tendency for easy bruising. All other systems have been reviewed and are negative other than noted in HPI. Active Problems Problems Abdominal pain, acute (789.00,338.19) (R10.9) Abdominal pain, acute, right upper quadrant (789.01,338.19) (R10.11) Anxiety (300.00) (F41.9) Back pain (724.5) (M54.9) Bacterial vaginosis (616.10,041.9) (N76.0,B96.89) Body mass index (BMI) of 38.0 to 38.9 in adult (V85.38) (Z68.38) Chronic low back pain (724.2,338.29) (M54.50,G89.29) Compression fracture of T5 vertebra (805.2) (S22.050A) Constipation (564.00) (K59.00) Depression, major, single episode, severe (296.23) (F32.2) Dizziness (780.4) (R42) Encounter for routine checking of intrauterine contraceptive device (IUD) (V25.42) (Z30.431) Excess ear wax (380.4) (H61.20) Falls (E888.9) (W19.XXXA) Fatty liver (571.8) (K76.0) Generalized epilepsy (345.90) (G40.309) GERD (gastroesophageal reflux disease) (530.81) (K21.9) Hypercholesterolemia (272.0) (E78.00) Hyperglycemia (790.29) (R73.9) Hypertension (401.9) (I10) Hypokalemia (276.8) (E87.6) Knee pain (719.46) (M25.569) Medication management (V58.69) (Z79.899) Morbid obesity (278.01) (E66.01) Morbid obesity with BMI of 40.0-44.9, adult (278.01,V85.41) (E66.01,Z68.41) Nasal bone fracture (802.0) (S02.2XXA) Osteopenia (733.90) (M85.80) Otalgia of both ears (388.70) (H92.03) Otitis media, right (382.9) (H66.91) Pelvic pain in female (625.9) (R10.2) Scalp hematoma (920) (S00.03XA) Screening for breast cancer (V76.10) (Z12.39) Screening for cervical cancer (V76.2) (Z12.4) Screening for cervical cancer (V76.2) (Z12.4) Seizure (780.39) (R56.9) Status post fall (V15.88) (Z91.81) Thrombocytopenia (287.5) (D69.6) Tinea (110.9) (B35.9) Tinea corporis (110.5) (B35.4) Tremor (781.0) (R25.1) Vaginal discharge (623.5) (N89.8) Widebased gait (781.2) (R26.89) Women's annual routine gynecological examination (V72.31) (Z01.419) Past Medical History Problems H/O mammogram ( (more content not included)... Normal [employer] Tobacco Screening.on 022 Fall risk assessment a) No falls within the last year [facility] 300 Work Phone: Tobacco use status CP b) No [facility] 300 Work Phone: Office Visit (Internal Medic ine)on 08-18-2022 Follow-up visit Diagnoses/Problems Assessed Anxiety (300.00) (F41.9) Generalized epilepsy (345.90) (G40.309) Chronic low back pain (724.2,338.29) (M54.50,G89.29) Orders Back pain Xray Lumbosacral Spine Min 4 View; Status:Hold For - Scheduling; Requested for:18Aug2022; Perform: Radiology Services Imaging; Due:16Nov2022;Ordered; For:Back pain; Ordered By:Jeanie Ayala; Radiologist to Determine Optimal Study : Y What are the patient's signs and symptoms? : [1] Back pain Chronic low back pain Physical Therapy - General Referral Evaluation and Treatment Evaluate AND Treat Status: Complete Done: 18Aug2022 Ordered;For: Chronic low back pain; Ordered By: Jeanie Ayala Performed: Due: 16Nov2022; Last Updated By: Cornelia Domingo; 08/18/2022 10:53:15 AM PUT PT ORDER IN PATIENT FOLDER SO [facility] AT [facility] CAN MAKE APPT WITH [facility]. APPARENTLY [facility] HAS A CONTRACT WITH [facility] AND COME TO PATIENT. Knee pain Renew: Diclofenac Sodium 1 % External Gel (Voltaren); apply sparingly to affected aea twice daily Rx By: Jeanie Ayala; Dispense: 0 Days ; #:1 X 100 GM Tube; Refill: 1;For: Knee pain; SHARLENE = N; Verified Transmission to [facility]; Last Updated By: Meghana Zapata; 08/18/2022 9:40:17 AM Medication management Lorazepam Level, Serum; Status:Active; Requested for:18Aug2022; Perform:Lab Services - Lab To Draw (Blood Test); Due:16Nov2022;Ordered; For:Medication management; Ordered By:Jeanie Ayala; Patient Discussion/Summary F/U 1 MO LS SPINE XRAY LORAZEPAM LEVEL Provider Impressions TYLENOL OTC/PRN WILL ORDER LORAZEPAM LEVEL OARRS HAS BEEN REVIEWED AND IS CONSISTENT WITH PRESCRIBED MEDICATIONS, CONSIDERED THE RISK OF ABUSE, DEPENDENCE, ADDICTION AND DIVERSION, MEDICATION IS FELT TO BE CLINICALLY APPROPRIATE ON THE DOCUMENTED DIAGNOSIS MDM 1) COMPLEXITY: 1 OR MORE CHRONIC CONDITION WITH EXACERBATION, OR PROGRESSION OR SIDE EFFECT OF TREATMENT ADDRESSED 2)DATA: TESTS ORDERED, TOOK INDEPENDENT HISTORY OR RECORDS REVIEWED 3)RISK: MODERATE RISK DUE TO NATURE OF MEDICAL CONDITIONS/COMORBIDITY OR MEDICATIONS ORDERED OR SURGICAL OR PROCEDURE REFERRAL, . Chief Complaint 1 MONTH F/U. DISCUSS BACK PAIN. DECLINES FLU VACCINE History of Present IllnessHERE FOR MED REFILL C/O BACK PAIN C/O B/L KNEE PAIN, HER VOLTAREN GEL WAS EFFECTIVE BUT STOPPED Scores and Scales PHQ-9 07Jan2022 11:48AM PHQ-9 #1. Little interest or pleasure in doing things3-Nearly every day PHQ-9 #2. Feeling down, depressed, or hopelesS3-Nearly every day PHQ-9 #3. Trouble falling or staying asleep, or sleeping too much3-Nearly every day PHQ-9 #4. Feeling tired or having little energy3-Nearly every day PHQ-9 #5. Poor appetite or overeating3-Nearly every day PHQ-9 #6. Feeling bad about yourself or you are a failure or that you have let yourself or your family down2-More than half the days PHQ-9 #7. Trouble concentrating on things, such as reading the newspaper or watch television2-More than half the days PHQ-9 #8. Moving or speaking so slowly that other people could have noticed. Or the opposite-being so fidgety or restless that you have been moving around a lot more than usual2-More than half the days PHQ-9 #9. Thoughts that you would be better off , or of hurting yourself0-Not at all PHQ-9 #10. If you checked off any problems, how difficult have these problems made it for you to do your work, take care of things at home, or get along with other people?Extremely Difficult PHQ-9 Total Score (Please update problem list based on total score)21 PHQ-9 Depression SeveritySevere (20-27) Review of Systems Constitutional: not feeling poorly, no fever, no recent weight gain and no recent weight loss. Eyes: no blurred vision and no diplopia. ENT: no hearing loss, no tinnitus, no earache, no sore throat, no hoarseness and no swollen glands in the neck. Cardiovascular: no chest pain, no tightness or heavy pressure, no shortness of breath, no palpitations and no lower extremity edema. Respiratory: no cough, not coughing up sputum and no wheezing that is consistent with asthma. Gastrointestinal: no change in bowel habits, no diarrhea, no constipation, no bloody stools, no nausea, no vomiting, no abdominal pain, no signs and symptoms of ulcer disease, no ligia colored stools and no intolerance to fatty foods. Genitourinary: no urinary frequency, no dysuria, no burning sensation during urination and no hematuria. Musculoskeletal: arthralgias and back pain, but no joint stiffness, no muscle weakness and no difficulty walking. Skin: no rashes, no change in skin color and pigmentation, no skin lesions and no skin lumps. Neurological: no headaches, no dizziness, no seizures, no tingling, no numbness, no signs and symptoms of stroke and no limb weakness. Psychiatric: no confusion, no memory lapses or loss, no depression and no sleep disturbances. Endocrine: no goiter, no thyroid disorder, no diabetes mellitus, no excessive th (more content not included)... Normal [employer] Tobacco Screening.on 022 Fall risk assessment a) No falls within the last year [facility] Work Phone: Tobacco use status [facility] b) No [facility] Work Phone: AMB - Narrative Note-Distres s Screen Follow Upon 08-11-2022 AMB - Narrative Note-Distress Screen Follow Up [facility] AMB - Narrative Note-Distres s Screen Follow Upon 08-06-2022 AMB - Narrative Note-Distress Screen Follow Up [facility] Note - Education Adul ton 08-06-2022 Clinic Note - Education Adult [facility] Note - Heme Onc-Follo w Up [facility] 08-06-2022 Clinic Note - Heme Onc-Follow Up Visit [facility] Note - Intakeon 08-06 Clinic Note - Intake [facility] Note - Heme Onc-Follo w Up [facility] 07-28-2022 Clinic Note - Heme Onc-Follow Up Visit This report has been cancelled. Normal [facility] Complete Blood Count + Diffe rentialon 07-22-2022 Erythrocyte distribution width (RBC) [Ratio] 13.8 % See Below [facility] 300 Work Phone: Comment on above: Reference Range: 11. 5 - 14.5 Hematocrit (Bld) [Volume fraction] 39.0 % See Below [facility] Orth[facility] and Sports [facility] 300 Work Phone: Comment on above: Reference Range: 36. 0 - 46.0 Hemoglobin (Bld) [Mass/Vol] 13.0 g/dL See Below [facility] 300 Work Phone: Comment on above: Reference Range: 12. 0 - 16.0 MCHC (RBC) [Mass/Vol] 33.4 g/dL See Below [facility] 300 Work Phone: Comment on above: Reference Range: 32. 0 - 36.0 MCV (RBC) [Entitic vol] 88 fL 80 - 100 [facility] 300 Work Phone: Platelets (Bld) [#/Vol] 106 10*3/uL below low threshold 150 - 450 [facility] 300 Work Phone: RBC (Bld) [#/Vol] 4.42 {x10E12/L} See Below [facility] 300 Work Phone: Comment on above: Reference Range: 4.0 0 - 5.20 WBC (Bld) [#/Vol] 5.4 10*3/uL 4.4 - 11.3 [facility] 300 Work Phone: Complete Blood Count + Differential SEE MANUAL DIFF [facility] 300 Work Phone: Complete Blood Count + Differential 0.1 {/100_WBC} [facility] 300 Work Phone: Laboratory - Chemistry and C hemistry - challengeon 07-22-2022 Albumin BCP dye [Mass/Vol] 3.8 g/dL 3.4 - 5.0 [facility] 300 Work Phone: ALP [Catalytic activity/Vol] 73 U/L 33 - 110 [facility] 300 Work Phone: ALT With P-5'-P [Catalytic activity/Vol] 17 U/L 7 - 45 [facility] 300 Work Phone: Comment on above: Patients treated wit h Sulfasalazine may generate falsely decreased results for ALT. Anion gap [Moles/Vol] 11 mmol/L 10 - 20 [facility] 300 Work Phone: AST With P-5'-P [Catalytic activity/Vol] 21 U/L 9 - 39 [facility] 300 Work Phone: Bilirubin [Mass/Vol] 0.3 mg/dL 0.0 - 1.2 [facility] 300 Work Phone: Calcium [Mass/Vol] 8.7 mg/dL 8.6 - 10.3 [facility] 300 Work Phone: Chloride [Moles/Vol] 101 mmol/L 98 - 107 [facility] 300 Work Phone: CO2 [Moles/Vol] 31 mmol/L 21 - 32 [facility] 300 Work Phone: Creatinine [Mass/Vol] 1.20 mg/dL above high threshold See Below [facility] 300 Work Phone: Comment on above: Reference Range: 0.5 0 - 1.05 Glucose [Mass/Vol] 110 mg/dL above high threshold 74 - 99 [facility] 300 Work Phone: Potassium [Moles/Vol] 3.9 mmol/L 3.5 - 5.3 [facility] 300 Work Phone: Protein [Mass/Vol] 5.9 g/dL below low threshold 6.4 - 8.2 [facility] 300 Work Phone: Sodium [Moles/Vol] 139 mmol/L 136 - 145 [facility] 300 Work Phone: Urea nitrogen [Mass/Vol] 26 mg/dL above high threshold 6 - 23 [facility] 300 Work Phone: Laboratory - Hematology and Cell countson 07-22-2022 Basophils/100 WBC (Bld) 0.0 % 0.0 - 2.0 [facility] 300 Work Phone: Lymphocytes/100 WBC (Bld) 35.0 % See Below [facility] 300 Work Phone: Comment on above: Reference Range: 13. 0 - 44.0 Monocytes/100 WBC (Bld) 5.0 % 2.0 - 10.0 [facility] 300 Work Phone: No Panel Informationon 07-22 NORMAL [facility] Orth[facility] Sports [facility] 300 Work Phone: 0.00 {x10E9/L} See Below [facility] 300 Work Phone: Comment on above: Reference Range: 0.0 0 - 0.10 Reference Range: 0.0 0 - 0.70 0.27 {x10E9/L} See Below [facility] 300 Work Phone: Comment on above: Reference Range: 0.1 0 - 1.00 1.89 {x10E9/L} See Below [facility] 300 Work Phone: Comment on above: Reference Range: 1.2 0 - 4.80 3.24 {x10E9/L} See Below [facility] 300 Work Phone: Comment on above: Reference Range: 1.2 0 - 7.00 Reference Range: 1.2 0 - 7.70 0.0 % 0.0 - 6.0 [facility] 300 Work Phone: 60.0 % See Below [facility] 300 Work Phone: Comment on above: Reference Range: 40. 0 - 80.0 Percent differential counts (%) should be interpreted in the context of the absolute cell counts (cells/L). 56 {mL/min/1.73m2} Abnormal >90 [facility] 300 Work Phone: Comment on above: CALCULATIONS OF FRIEDA MATED GFR ARE PERFORMED USING THE 2020 CKD-EPI STUDY REFIT EQUATION WITHOUT THE RACE VARIABLE FOR THE IDMS-TRACEABLE CREATININE METHODS.https://jasn.asnjournals.org/content/early// N.2819528767 Office Visit (Internal Medic ine)on 07-21-2022 Follow-up visit Diagnoses/Problems Health Maintenance/Risks Encounter for preventive health examination (V70.0) (Z00.00) Assessed Anxiety (300.00) (F41.9) Generalized epilepsy (345.90) (G40.309) Excess ear wax (380.4) (H61.20) Tinea corporis (110.5) (B35.4) Orders Anxiety Renew: LORazepam 1 MG Oral Tablet; TAKE 2 TABLET Twice daily Rx By: Jeanie Ayala; Dispense: 30 Days ; #:120 Tablet; Refill: 0;For: Anxiety; SHARLENE = N;Creating [employer] Excess ear wax Start: Debrox 6.5 % Otic Solution; USE DIRECTED Rx By: Jeanie Ayala; Dispense: 0 Days ; #:1 X 15 ML Bottle; Refill: 0;For: Excess ear wax; SHARLENE = N; Verified Transmission to [facility]; Last Updated By: [employer]; 07/21/2022 9:35:48 AM Generalized epilepsy Start: Clotrimazole-Betamethas one 1-0.05 % External Cream; APPLY AND RUB IN A THIN FILM TO AFFECTED AREAS TWICE DAILY.(AM AND PM) Rx By: Jeanie Ayala; Dispense: 0 Days ; #:1 X 45 GM Tube; Refill: 0;For: Generalized epilepsy; SHARLENE = N; Verified Transmission to [facility]; Last Updated By: [employer]; 07/21/2022 9:31:34 AM Start: Metoprolol Succinate ER 25 MG Oral Tablet Extended Release 24 Hour (Toprol XL); Take 1 tablet daily Rx By: Jeanie Ayala; Dispense: 30 Days ; #:30 Tablet; Refill: 11;For: Generalized epilepsy; SHARLENE = N; Verified Transmission to [facility]; Last Updated By: Meghana Zapata; 07/21/2022 9:31:35 AM Health Maintenance Temporarily Stop: Flulaval Quadrivalent 0.5 ML Intramuscular Suspension Prefilled Syringe For: Health Maintenance; Ordered By:Jeanie Ayala; Effective Date:21Jul2022; Last Updated By: Nedra Rivera; 07/21/2022 9:39:27 AM Knee pain, Widebased gait Physical Therapy - General Referral Evaluation and Treatment Evaluate AND Treat Status: Active Requested for: 15Jul2022 Ordered;For: Knee pain, Widebased gait; Ordered By: Reanna Kemp Performed: Due: [id number]; Last Updated By: Cornelia Domingo; 07/21/2022 9:44:56 AM PRINTED ORDER AND PUT IN PATIENT FOLDER FOR [facility] Patient Discussion/Summary F/U 1 MO Provider Impressions MONITOR BP GOAL BP LOWER THAN 130/80 LOW SALT EXERCISE DAILY OARRS HAS BEEN REVIEWED AND IS CONSISTENT WITH PRESCRIBED MEDICATIONS, CONSIDERED THE RISK OF ABUSE, DEPENDENCE, ADDICTION AND DIVERSION, MEDICATION IS FELT TO BE CLINICALLY APPROPRIATE ON THE DOCUMENTED DIAGNOSIS DECLINED FLU SHOT Chief Complaint 1 MO MED RF PT CO B/L EAR PAIN TODAY AND NEEDS REFERRAL TO [facility] DECLINES FLU VACCINE History of Present IllnessHERE FOR MED REFILL C/O B/L EAR ACHE C/O RASH ON THE RIGHT ARM PIT WITH SOME ITCH Scores and Scales PHQ-9 07Jan2022 11:48AM PHQ-9 #1. Little interest or pleasure in doing things3-Nearly every day PHQ-9 #2. Feeling down, depressed, or hopelesS3-Nearly every day PHQ-9 #3. Trouble falling or staying asleep, or sleeping too much3-Nearly every day PHQ-9 #4. Feeling tired or having little energy3-Nearly every day PHQ-9 #5. Poor appetite or overeating3-Nearly every day PHQ-9 #6. Feeling bad about yourself or you are a failure or that you have let yourself or your family down2-More than half the days PHQ-9 #7. Trouble concentrating on things, such as reading the newspaper or watch television2-More than half the days PHQ-9 #8. Moving or speaking so slowly that other people could have noticed. Or the opposite-being so fidgety or restless that you have been moving around a lot more than usual2-More than half the days PHQ-9 #9. Thoughts that you would be better off , or of hurting yourself0-Not at all PHQ-9 #10. If you checked off any problems, how difficult have these problems made it for you to do your work, take care of things at home, or get along with other people?Extremely Difficult PHQ-9 Total Score (Please update problem list based on total score)21 PHQ-9 Depression SeveritySevere (20-27) Review of Systems Constitutional: not feeling poorly, no fever, no recent weight gain and no recent weight loss. Eyes: no blurred vision and no diplopia. ENT: no hearing loss, no tinnitus, no earache, no sore throat, no hoarseness and no swollen glands in the neck. Cardiovascular: no chest pain, no tightness or heavy pressure, no shortness of breath, no palpitations and no lower extremity edema. Respiratory: no cough, not coughing up sputum and no wheezing that is consistent with asthma. Gastrointestinal: no change in bowel habits, no diarrhea, no constipation, no bloody stools, no nausea, no vomiting, no abdominal pain, no signs and symptoms of ulcer disease, no ligia colored stools and no intolerance to fatty foods. Genitourinary: no urinary frequency, no dysuria, no burning sensation during urination and no hematuria. Musculoskeletal: no arthralgias, no joint stiffness, no muscle weakness, no back pain and no difficulty walking. Skin: a rash, but no change in skin color and pigmentation, no skin lesions and no skin lumps. Neurological: no headaches, no dizziness, n (more content not included)... Normal [employer] Tobacco Screening.on 022 Fall risk assessment a) No falls within the last year [facility] Work Phone: Tobacco use status [facility] b) No [facility] Work Phone: Initial Visit (Orthopaedic S [place])on 07-15-2022 Initial Visit (Orthopaedic Surgery) Diagnoses/Problems Assessed Knee pain (719.46) (M25.569) Widebased gait (781.2) (R26.89) Patient Discussion/Summary Patient will be fitted in bilateral pull-through braces to wear with weightbearing activity. I am referring for PT for knee and leg strengthening and gait assessment. Increasing diclofenac gel to 4 times daily for 1 week, then patient may to decrease to twice a day or as needed. Tylenol per package directions. I did inquire that the patient have the facility please send a current medication list as I am able unable to recommend any NSAIDs due to not having a list of current medications. Patient is to use a walker with weightbearing activities and assistance as needed. Patient to follow-up here in 1 month, sooner for changes or concerns. Patient in agreement with plan of care. This note was generated using [employer] software. It may contain errors in wording, punctuation or spelling. Provider Impressions History, symptoms and assessment consistent with bilateral knee pain, frequent falls and ataxic gait. Chief Complaint [employer] BILAT KNEE PAIN PT DOES NOT WALK MUCH DUE TO SEIZURES REFERRAL: DR FARIA PAIN 8 GOING ON FOR MONTHS History of Present Illness Agree with CC as documented per GREG. Patient is a pleasant 36-year-old female accompanied by member from the assisted living facility for evaluation of bilateral knee pain. This is Been going on for months with no injuries. Patient states she has some constant pain and has frequent falls. Pain does get to severe and up to 8 out of 10 at times. She also describes it as aching and popping. Patient states she did try a pain cream from her PCP that did not help. She has not attempted any wraps, bracing. Patient has participated in PT for her gait in the past, however its been DC'd. she notices pain is worse with changing in position, prolonged sitting or prolonged standing. Patient did use some pain medication in the wong past, she was unsure of the name of it and currently is not taking any prescription medicines for pain control. She does use Tylenol on a as needed basis and helps for very short-term intervals. Patient is mostly wheelchair-bound and can ambulate approximately 10 feet with a walker to the restroom several times daily and this is when most of the falls occur. Review of Systems Constitutional: no fever, no chills and not feeling tired. ENT: no recent cough or URI sx, no nosebleeds. Cardiovascular: no chest pain. Respiratory: no shortness of breath and no cough. Gastrointestinal: no abdominal pain, no nausea, no vomiting and no diarrhea. Integumentary: no rashes or skin wounds. Neurological: no headache. Psychiatric: no depression and no sleep disturbances. Endocrine: no muscle weakness and no muscle cramps. Hematologic/Lymphatic: no swollen glands and no tendency for easy bruising. All other systems have been reviewed and are negative other than noted in HPI. *Active Problems Problems Abdominal pain, acute (789.00,338.19) (R10.9) Abdominal pain, acute, right upper quadrant (789.01,338.19) (R10.11) Back pain (724.5) (M54.9) Bacterial vaginosis (616.10,041.9) (N76.0,B96.89) Body mass index (BMI) of 38.0 to 38.9 in adult (V85.38) (Z68.38) Chronic low back pain (724.2,338.29) (M54.50,G89.29) Compression fracture of T5 vertebra (805.2) (S22.050A) Constipation (564.00) (K59.00) Depression, major, single episode, severe (296.23) (F32.2) Dizziness (780.4) (R42) Encounter for routine checking of intrauterine contraceptive device (IUD) (V25.42) (Z30.431) Falls (E888.9) (W19.XXXA) Fatty liver (571.8) (K76.0) GERD (gastroesophageal reflux disease) (530.81) (K21.9) Hypercholesterolemia (272.0) (E78.00) Hyperglycemia (790.29) (R73.9) Hypertension (401.9) (I10) Hypokalemia (276.8) (E87.6) Knee pain (719.46) (M25.569) Medication management (V58.69) (Z79.899) Morbid obesity (278.01) (E66.01) Morbid obesity with BMI of 40.0-44.9, adult (278.01,V85.41) (E66.01,Z68.41) Nasal bone fracture (802.0) (S02.2XXA) Osteopenia (733.90) (M85.80) Otalgia of both ears (388.70) (H92.03) Otitis media, right (382.9) (H66.91) Pelvic pain in female (625.9) (R10.2) Scalp hematoma (920) (S00.03XA) Screening for breast cancer (V76.10) (Z12.39) Screening for cervical cancer (V76.2) (Z12.4) Screening for cervical cancer (V76.2) (Z12.4) Seizure (780.39) (R56.9) Status post fall (V15.88) (Z91.81) Thrombocytopenia (287.5) (D69.6) Tinea (110.9) (B35.9) Tremor (781.0) (R25.1) Vaginal discharge (623.5) (N89.8) Widebased gait (781.2) (R26.89) Women's annual routine gynecological examination (V72.31) (Z01.419) Anxiety (300.00) (F41.9) Generalized epilepsy (345.90) (G40.309) Past Medical History Problems H/O mammogram (V15.89) (Z92.89) 03/06/2022; BENIGN 02/21/2021- benign History of Hepatic Failure (570) Based on patient's description. Now resolved. History of anemia (V12.3) (Z86.2) now resolved History of blood (more content not included)... Normal [employer] Tobacco Screening.on 022 Fall risk assessment b) One or more fall s in the last year [facility] 300 Work Phone: Tobacco use status [facility] b) No [facility] 300 Work Phone: Cult, Urineon 07-12-2022 Bacteria identified Cx Nom (U) [facility] 300 Work Phone: Urinalysison 07-12-2022 Color (U) Straw See Below [facility] Work Phone: Comment on above: Reference Range: STR AW,YELLOW Glucose Ql (U) Negative NEGATIVE [facility] Work Phone: Ketones Ql (U) Negative NEGATIVE [facility] Work Phone: Leukocyte esterase Test strip Ql (U) Negative NEGATIVE [facility] Work Phone: pH (U) 6.0 [pH] 5.0 - 8.0 [facility] Work Phone: Protein (U) [Mass/Vol] Negative NEGATIVE [facility] Work Phone: RBC (U) [#/Vol] Negative NEGATIVE [facility] Work Phone: Specific gravity (U) [Rel density] 1.009 1 See Below [facility] Work Phone: Comment on above: Reference Range: 1.0 05 - 1.035 Urinalysis Negative NEGATIVE [facility] Work Phone: Urinalysis <2.0 0.0 - 1.9 [facility] Work Phone: Urinalysis CLEAR CLEAR [facility] Work Phone: Falls Screening (Age 18+)on 06-30-2022 Fall risk assessment b) One or more fall s in the last year [facility] Work Phone: Tobacco use status [facility] b) No [facility] Work Phone: Office Visit (Internal Medic ine)on 06-30-2022 Follow-up visit Diagnoses/Problems Assessed Anxiety (300.00) (F41.9) Tinea (110.9) (B35.9) Knee pain (719.46) (M25.569) Tremor (781.0) (R25.1) Orders Anxiety Renew: LORazepam 1 MG Oral Tablet; TAKE 2 TABLET Twice daily Rx By: Jeanie Ayala; Dispense: 30 Days ; #:120 Tablet; Refill: 0;For: Anxiety; SHARLENE = N; Verified Transmission to [facility]; Last Updated By: [employer]; 06/30/2022 1:22:36 PM Knee pain Orthopedic - General Referral Evaluation and Treatment Evaluate AND Treat Status: Complete Done: 30Jun2022 Ordered;For: Knee pain; Ordered By: Jeanie Ayala Performed: Due: [id number]; Last Updated By: Jimbo Mcmanus; 06/30/2022 1:31:19 PM FRANCES LANGE 9-15 AT 145 Tinea Start: Clotrimazole-Betamethas one 1-0.05 % External Cream; APPLY AND RUB IN A THIN FILM TO AFFECTED AREAS TWICE DAILY.(AM AND PM) Rx By: Jeanie Ayala; Dispense: 0 Days ; #:1 X 15 GM Tube; Refill: 2;For: Tinea; SHARLENE = N; Verified Transmission to [facility]; Last Updated By: [employer]; 06/30/2022 1:22:41 PM Patient Discussion/Summary F/U 1 MO Provider Impressions OARRS HAS BEEN REVIEWED AND IS CONSISTENT WITH PRESCRIBED MEDICATIONS, CONSIDERED THE RISK OF ABUSE, DEPENDENCE, ADDICTION AND DIVERSION, MEDICATION IS FELT TO BE CLINICALLY APPROPRIATE ON THE DOCUMENTED DIAGNOSIS INCREASE LOTRISONE APPLY VOLTARN GEL AND ORTHO REFERRAL MDM 1) COMPLEXITY: 1 OR MORE CHRONIC CONDITION WITH EXACERBATION, OR PROGRESSION OR SIDE EFFECT OF TREATMENT ADDRESSED 2)DATA: TOOK INDEPENDENT HISTORY OR RECORDS REVIEWED 3)RISK: MODERATE RISK DUE TO NATURE OF MEDICAL CONDITIONS/COMORBIDITY OR MEDICATIONS ORDERED OR SURGICAL OR PROCEDURE REFERRAL, . Chief Complaint 1 MONTH MED REFILL. PATIENT COMPLAINS OF RIGHT KNEE PAIN. HAS SOME WHITE SPOTS SHE WOULD LIKE LOOKED AT. History of Present IllnessHERE FOR MED REFILL C/O RIGHT KNEE PAIN WHITE SPOTS ON THE RIGHT LEG STILL HAS LOTS OF SHAKING WOULD LIKE INCREASE IN LORAZEM WHICH HELPS A LOT Scores and Scales PHQ-9 07Jan2022 11:48AM PHQ-9 #1. Little interest or pleasure in doing things3-Nearly every day PHQ-9 #2. Feeling down, depressed, or hopelesS3-Nearly every day PHQ-9 #3. Trouble falling or staying asleep, or sleeping too much3-Nearly every day PHQ-9 #4. Feeling tired or having little energy3-Nearly every day PHQ-9 #5. Poor appetite or overeating3-Nearly every day PHQ-9 #6. Feeling bad about yourself or you are a failure or that you have let yourself or your family down2-More than half the days PHQ-9 #7. Trouble concentrating on things, such as reading the newspaper or watch television2-More than half the days PHQ-9 #8. Moving or speaking so slowly that other people could have noticed. Or the opposite-being so fidgety or restless that you have been moving around a lot more than usual2-More than half the days PHQ-9 #9. Thoughts that you would be better off , or of hurting yourself0-Not at all PHQ-9 #10. If you checked off any problems, how difficult have these problems made it for you to do your work, take care of things at home, or get along with other people?Extremely Difficult PHQ-9 Total Score (Please update problem list based on total score)21 PHQ-9 Depression SeveritySevere (20-27) Review of Systems Constitutional: not feeling poorly, no fever, no recent weight gain and no recent weight loss. Eyes: no blurred vision and no diplopia. ENT: no hearing loss, no tinnitus, no earache, no sore throat, no hoarseness and no swollen glands in the neck. Cardiovascular: no chest pain, no tightness or heavy pressure, no shortness of breath, no palpitations and no lower extremity edema. Respiratory: no cough, not coughing up sputum and no wheezing that is consistent with asthma. Gastrointestinal: no change in bowel habits, no diarrhea, no constipation, no bloody stools, no nausea, no vomiting, no abdominal pain, no signs and symptoms of ulcer disease, no ligia colored stools and no intolerance to fatty foods. Genitourinary: no urinary frequency, no dysuria, no burning sensation during urination and no hematuria. Musculoskeletal: arthralgias, but no joint stiffness, no muscle weakness, no back pain and no difficulty walking. Skin: a rash, but no change in skin color and pigmentation, no skin lesions and no skin lumps. Neurological: no headaches, no dizziness, no seizures, no tingling, no numbness, no signs and symptoms of stroke and no limb weakness. Psychiatric: no confusion, no memory lapses or loss, no depression and no sleep disturbances. Endocrine: no goiter, no thyroid disorder, no diabetes mellitus, no excessive thirst, no dry skin, no cold intolerance, no heat intolerance and no increased urinary frequency. Hematologic/Lymphatic: is not slow to heal, does not bleed easily, does not bruise easily, no thrombophlebitis, no anemia and no history of blood transfusion. All other systems have been reviewed and are negative for complaint. Active Problems Problems Abdo (more content not included)... Normal [employer] Tobacco Screening.on 022 Fall risk assessment a) No falls within the last year [facility] Work Phone: Tobacco use status CP b) No [facility] Work Phone: CT CERVICAL SPINE WITHOUT CO NTRASTon 05-06-2022 CT CERVICAL SPINE WITHOUT CONTRAST EXAMINATION: CT CERVICAL SPINE WITHOUT CONTRAST. 05/06/2022 CLINICAL HISTORY: Patient fell at home with neck pain. TECHNIQUE: Axial CT scans through the cervical spine were obtained without contrast. Sagittal and coronal reconstruction images were obtained. Dose reduction techniques were achieved by using: automated exposure control and/or adjustment of mA and/or kV according to patient size and/or use of iterative reconstruction technique. COMPARISON: None. FINDINGS: No acute fracture or posttraumatic malalignment. Straightening of the cervical spine is shown. The prevertebral soft tissue space appears normal. Mild posterior discovertebral complexes at C3-C4 and C4-C5 without central spinal stenosis. The visualized intracranial contents appear normal. The visualized neck shows no abnormal mass. The visualized upper lungs are clear. IMPRESSION: 1. No fracture or posttraumatic malalignment. 2. Straightening of the cervical spine, likely due to positioning or muscle spasm. Workstation ID: [id number] Dictated by: JEFF PRASAD on WedMay 06, 2022 7:48:57 PM EDT Transcribed by: JEFF PRASAD on WedMay 06, 2022 7:48:57 PM EDT Finalized by: JEFF PRASAD on WedMay 06, 2022 7:48:57 PM EDT [facility] Comment on above: Order Comment: Injur y/Trauma or Illness?:Injury/Trauma How long have you had these symptoms (acute/chronic)?:Acute Reason for exam?:Fall, neck pain Type of Exam?:Initial Mechanism of injury?:Fall CT HEAD OR BRAIN WITHOUT CON TRASTon 05-06-2022 CT HEAD OR BRAIN WITHOUT CONTRAST EXAMINATION: CT HEAD OR BRAIN WITHOUT CONTRAST;05/06/2022 7:12 pm CLINICAL HISTORY: Patient fell at home with head injury. TECHNIQUE: Axial CT scans through the head were obtained without contrast administration. Dose reduction techniques were achieved by using: automated exposure control and/or adjustment of mA and /or kV according to patient size and/or use of iterative reconstruction technique. COMPARISON: 08/16/2021. FINDINGS: The cerebral hemispheres have normal white and hill matter. The posterior fossa appears normal. There is no depressed skull fracture. Hyperostosis frontalis interna is incidentally noted. There is no edema or intracranial hemorrhage. The ventricular system is normal in size. The visualized orbits show no abnormal mass. The visualized paranasal sinuses show no air-fluid level. Middle ear cavities and mastoids are clear. IMPRESSION: No acute intracranial process. Workstation ID: [id number] Dictated by: JEFF PRASAD on WedMay 06, 2022 7:44:58 PM EDT Transcribed by: JEFF PRASAD on WedMay 06, 2022 7:44:58 PM EDT Finalized by: JEFF PRASAD on WedMay 06, 2022 7:44:58 PM EDT [facility] Comment on above: Order Comment: Injur y/Trauma or Illness?:Injury/Trauma How long have you had these symptoms (acute/chronic)?:Acute Reason for exam?:Fall, head injury Type of Exam?:Initial Mechanism of injury?:Fall XR LUMBAR SPINE 2-3 VIEWS (S TANDARD)on 05-06-2022 XR LUMBAR SPINE 2-3 VIEWS (STANDARD) EXAMINATION: XR LUMBAR SPINE 2-3 VIEWS (STANDARD) 05/06/2022 7:18 pm HISTORY: ORDERING SYSTEM PROVIDED HISTORY: Back injury, TECHNOLOGIST PROVIDED HISTORY: Injury/Trauma Reason for exam: Fall, low back pain Cancer History: n Surgery, RadiationHistory: yes Encounter Type: Initial Mechanism of injury: fall ORDERING SYSTEM PROVIDED DIAGNOSIS CODES: COMPARISON: CT lumbar spine 08/16/2021 FINDINGS: Three views are obtained of the lumbar spine. There are 5 [id number] lumbar type vertebrae. There is appropriate alignment of the vertebrae. The vertebral body heights and disc space heights are maintained. There is no fracture identified. There is an IUD noted within the pelvis. IMPRESSION: Unremarkable appearance of the lumbar spine. Workstation ID: [id number] Dictated by: MAXINE MENDIOLA on WedMay 06, 2022 8:07:27 PM EDT Transcribed by: MAXINE MENDIOLA on WedMay 06, 2022 8:07:27 PM EDT Finalized by: MAXINE MENDIOLA on WedMay 06, 2022 8:07:27 PM EDT [facility] Comment on above: Order Comment: Injur y/Trauma or Illness?:Injury/Trauma How long have you had these symptoms (acute/chronic)?:Acute Reason for exam?:Fall, low back pain History of cancer?:n Surgeries, chemotherapy, or radiation?:yes Type of Exam?:Initial Mechanism of injury?:fall Tobacco Screening.on Fall risk assessment a) No falls within the last year [facility] Work Phone: Tobacco use status [facility] b) No [facility] Work Phone: Tobacco Screening.on Fall risk assessment a) No falls within the last year [facility] Work Phone: Tobacco use status [facility] b) No [facility] Work Phone: Mamm - Screening Mammogram w / Tomosynthesison 03-06-2022 MG Breast Screening Normal [facility] [address] Work Phone: Radiologyon 03-06-2022 XR Knee 3 Views Please click on the link to view the study images Normal [facility] [address] Work Phone: Tobacco Screening.on Fall risk assessment b) One or more fall s in the last year [facility] Work Phone: Tobacco use status [facility] b) No [facility] Work Phone: Tobacco Screening.on 022 Fall risk assessment b) One or more fall s in the last year [facility] Work Phone: Tobacco use status [facility] b) No [facility] Work Phone: Ammonia, Plasmaon 01-23-2022 Ammonia (P) [Moles/Vol] 22 umol/L [facility] Work Phone: Comment on above: .REFERENCE VALUESDAY 1 to DAY 7 <110DAY 8 to DAY 14 < 90DAY 15 to ADULT 16-53 Complete Blood Count + Diffe rentialon 01-23-2022 Basophils/100 WBC (Bld) 0.2 % 0.0 - 2.0 [facility] Work Phone: Erythrocyte distribution width (RBC) [Ratio] 13.7 % See Below [facility] Work Phone: Comment on above: Reference Range: 11. 5 - 14.5 Hematocrit (Bld) [Volume fraction] 40.3 % See Below [facility] Work Phone: Comment on above: Reference Range: 36. 0 - 46.0 Hemoglobin (Bld) [Mass/Vol] 13.5 g/dL See Below [facility] Work Phone: Comment on above: Reference Range: 12. 0 - 16.0 Lymphocytes/100 WBC (Bld) 26.0 % See Below [facility] Work Phone: Comment on above: Reference Range: 13. 0 - 44.0 MCHC (RBC) [Mass/Vol] 33.5 g/dL See Below [facility] Work Phone: Comment on above: Reference Range: 32. 0 - 36.0 MCV (RBC) [Entitic vol] 88 fL 80 - 100 [facility] Work Phone: Monocytes/100 WBC (Bld) 7.6 % 2.0 - 10.0 [facility] Work Phone: Neutrophils/100 WBC (Bld) 64.3 % See Below [facility] Work Phone: Comment on above: Reference Range: 40. 0 - 80.0 Platelets (Bld) [#/Vol] 113 10*3/uL below low threshold 150 - 450 [facility] Work Phone: RBC (Bld) [#/Vol] 4.58 {x10E12/L} See Below [facility] Work Phone: Comment on above: Reference Range: 4.0 0 - 5.20 WBC (Bld) [#/Vol] 5.4 10*3/uL 4.4 - 11.3 [facility] Work Phone: Complete Blood Count + Differential 0.00 {x10E9/L} See Below [facility] Work Phone: Comment on above: Reference Range: 0.0 0 - 0.10 Complete Blood Count + Differential 0.10 {x10E9/L} See Below [facility] Work Phone: Comment on above: Reference Range: 0.0 0 - 0.70 Complete Blood Count + Differential 0.40 {x10E9/L} See Below [facility] Work Phone: Comment on above: Reference Range: 0.1 0 - 1.00 Complete Blood Count + Differential 1.40 {x10E9/L} See Below [facility] Work Phone: Comment on above: Reference Range: 1.2 0 - 4.80 Complete Blood Count + Differential 3.50 {x10E9/L} See Below [facility] Work Phone: Comment on above: Reference Range: 1.2 0 - 7.70 Percent differential counts (%) should be interpreted in the context of the absolute cell counts (cells/L). Complete Blood Count + Differential 1.9 % 0.0 - 6.0 [facility] Work Phone: Complete Blood Count + Differential 0.2 {/100_WBC} [facility] Work Phone: Laboratory - Chemistry and C hemistry - challengeon 01-23-2022 Albumin BCP dye [Mass/Vol] 4.1 g/dL 3.4 - 5.0 [facility] Work Phone: ALP [Catalytic activity/Vol] 76 U/L 33 - 110 [facility] Work Phone: ALT With P-5'-P [Catalytic activity/Vol] 21 U/L 7 - 45 [facility] Work Phone: Comment on above: Patients treated wit h Sulfasalazine may generate falsely decreased results for ALT. Anion gap [Moles/Vol] 12 mmol/L 10 - 20 [facility] Work Phone: AST With P-5'-P [Catalytic activity/Vol] 23 U/L 9 - 39 [facility] Work Phone: Bilirubin [Mass/Vol] 0.4 mg/dL 0.0 - 1.2 [facility] Work Phone: Calcium [Mass/Vol] 8.9 mg/dL 8.6 - 10.3 [facility] Work Phone: Chloride [Moles/Vol] 100 mmol/L 98 - 107 [facility] Work Phone: CO2 [Moles/Vol] 30 mmol/L 21 - 32 [facility] Work Phone: Creatinine [Mass/Vol] 1.12 mg/dL above high threshold See Below [facility] Work Phone: Comment on above: Reference Range: 0.5 0 - 1.05 Glucose [Mass/Vol] 111 mg/dL above high threshold 74 - 99 [facility] Work Phone: Potassium [Moles/Vol] 3.5 mmol/L 3.5 - 5.3 [facility] Work Phone: Protein [Mass/Vol] 6.5 g/dL 6.4 - 8.2 [facility] Work Phone: Sodium [Moles/Vol] 138 mmol/L 136 - 145 [facility] Work Phone: Urea nitrogen [Mass/Vol] 17 mg/dL 6 - 23 [facility] Work Phone: No Panel Informationon 01-23 61 {mL/min/1.73m2} >90 [facility] Work Phone: Comment on above: CALCULATIONS OF FRIEDA MATED GFR ARE PERFORMED USING THE 2020 CKD-EPI STUDY REFIT EQUATION WITHOUT THE RACE VARIABLE FOR THE IDMS-TRACEABLE CREATININE METHODS.https://jasn.asnjournals.org/content/early/ N.7430477023 Valproic Acid Level, Serumon 01-23-2022 Valproate [Mass/Vol] 56 ug/mL 50 - 100 [facility] Work Phone: Vitamin B12, Serumon 022 Cobalamin (Vitamin B12) [Mass/Vol] 1085 pg/mL above high threshold 211 - 911 [facility] Work Phone: No Panel Informationon 01-22 [facility] Work Phone: [email or web address] ?={[email or web address] [email or web address]} [facility] Work Phone: [facility] Work Phone: Coronavirus 2019 RNA by PCR, Screening Asymptomticon 01-21-2022 Coronavirus 2019 RNA by PCR, Screening Asymptomtic Not detected Normal See Below [facility] Work Phone: Comment on above: SOURCE: Nasal, Nasop haryngealReference Range: Not Detected.This assay is designed to detect the N, ORF1ab and/or S genes of SARS-CoV-2 via nucleic acid amplification. A Negative (NOT DETECTED) result does not preclude 2019-nCoV infection since the adequacy of sample collection and/or low viral burden may result in presence of viral nucleic acids below the clinical sensitivity of this test method. Negative (NOT DETECTED) result should not be used as the sole basis for treatment or other patient management decisions. Rather negative results should be combined with clinical observations, patient history, and epidemiological information to make patient management decisions.Fact sheet for providers: https://www.fda.gov/media/124984/downloadFact sheet for patients: https://www.fda.gov/media/082372/downloadThis test has received FDA Emergency Use Authorization (EUA) and has been verified by [facility] ([facility]). This test is only authorized for the duration of time that circumstances exist to justify the authorization of the emergency use of in vitro diagnostic tests for the detection of SARS-CoV-2 virus and/or diagnosis of COVID-19 infection under section 564(b)(1) of the Act, 21 U.S.C. 360bbb-3(b)(1), unless the authorization is terminated or revoked sooner. [facility] is certified under CLIA-88 as qualified to perform high complexity testing. Testing is performed in the [facility] laboratories located at [address] [place] [address]. Tobacco Screening.on 022 Adult depression screening assessment Yes [facility] Work Phone: Fall risk assessment a) No falls within the last year [facility] Medicine Work Phone: Tobacco use status [facility] b) No [facility] Work Phone: Tobacco Screening. 3-Nearly every day [facility] Work Phone: Tobacco Screening. 2-More than half the days [facility] Medicine Work Phone: Tobacco Screening. 0-Not at all [facility] Work Phone: Tobacco Screening. Extremely Difficult [facility] Work Phone: Xray Bone Density, Dexa 1 or More Siteson 12-26-2021 DXA Bone [Mass/Area] Bone density Normal [facility] Work Phone: Laboratory - Chemistry and C hemistry - challengeon 12-25-2021 Albumin BCP dye [Mass/Vol] 4.0 g/dL 3.4 - 5.0 [facility] Work Phone: ALP [Catalytic activity/Vol] 62 U/L 33 - 110 [facility] Work Phone: ALT With P-5'-P [Catalytic activity/Vol] 18 U/L 7 - 45 [facility] Work Phone: Comment on above: Patients treated wit h Sulfasalazine may generate falsely decreased results for ALT. Anion gap [Moles/Vol] 13 mmol/L 10 - 20 [facility] Work Phone: AST With P-5'-P [Catalytic activity/Vol] 21 U/L 9 - 39 [facility] Work Phone: Bilirubin [Mass/Vol] 0.4 mg/dL 0.0 - 1.2 [facility] Internal [facility] Work Phone: Calcium [Mass/Vol] 8.7 mg/dL 8.6 - 10.3 [facility] Work Phone: Chloride [Moles/Vol] 100 mmol/L 98 - 107 [facility] Internal Medicine Work Phone: CO2 [Moles/Vol] 28 mmol/L 21 - 32 [facility] Internal Medicine Work Phone: Creatinine [Mass/Vol] 1.19 mg/dL above high threshold See Below [facility] Work Phone: Comment on above: Reference Range: 0.5 0 - 1.05 Glucose [Mass/Vol] 88 mg/dL 74 - 99 [facility] Work Phone: Potassium [Moles/Vol] 4.0 mmol/L 3.5 - 5.3 [facility] Medicine Work Phone: Protein [Mass/Vol] 6.6 g/dL 6.4 - 8.2 [facility] Work Phone: Sodium [Moles/Vol] 137 mmol/L 136 - 145 [facility] Work Phone: Urea nitrogen [Mass/Vol] 23 mg/dL 6 - 23 [facility] Work Phone: NM Biliary with EF w/wo CCKo n 12-25-2021 NM Biliary with EF w/wo CCK Normal [facility] Work Phone: No Panel Informationon 12-25 56 {mL/min/1.73m2} Abnormal >90 [facility] Work Phone: Comment on above: CALCULATIONS OF FRIEDA MATED GFR ARE PERFORMED USING THE 2020 CKD-EPI STUDY REFIT EQUATION WITHOUT THE RACE VARIABLE FOR THE IDMS-TRACEABLE CREATININE METHODS.https://jasn.asnjournals.org/content/early// N.9768682921 Valproic Acid Level, Serumon 12-25-2021 Valproate [Mass/Vol] 50 ug/mL 50 - 100 [facility] Work Phone: Tobacco Screening.on 022 Fall risk assessment a) No falls within the last year [facility] Work Phone: Tobacco use status CPHS b) No [facility] Work Phone: Radiologyon 12-15-2021 US Liver Normal [facility] Work Phone: Complete Blood Count + Diffe rentialon 12-13-2021 Erythrocyte distribution width (RBC) [Ratio] 13.8 % See Below [facility] Work Phone: Comment on above: Reference Range: 11. 5 - 14.5 Hematocrit (Bld) [Volume fraction] 39.8 % See Below [facility] Work Phone: Comment on above: Reference Range: 36. 0 - 46.0 Hemoglobin (Bld) [Mass/Vol] 13.3 g/dL See Below [facility] Work Phone: Comment on above: Reference Range: 12. 0 - 16.0 MCHC (RBC) [Mass/Vol] 33.5 g/dL See Below [facility] Work Phone: Comment on above: Reference Range: 32. 0 - 36.0 MCV (RBC) [Entitic vol] 88 fL 80 - 100 [facility] Work Phone: Platelets (Bld) [#/Vol] 141 10*3/uL below low threshold 150 - 450 [facility] Work Phone: RBC (Bld) [#/Vol] 4.53 {x10E12/L} See Below [facility] Work Phone: Comment on above: Reference Range: 4.0 0 - 5.20 WBC (Bld) [#/Vol] 8.5 10*3/uL 4.4 - 11.3 [facility] Work Phone: Complete Blood Count + Differential SEE MANUAL DIFF [facility] Work Phone: Complete Blood Count + Differential 0.1 {/100_WBC} [facility] Work Phone: Laboratory - Chemistry and C hemistry - challengeon 12-13-2021 Albumin BCP dye [Mass/Vol] 4.3 g/dL 3.4 - 5.0 [facility] Work Phone: ALP [Catalytic activity/Vol] 65 U/L 33 - 110 [facility] Work Phone: ALT With P-5'-P [Catalytic activity/Vol] 23 U/L 7 - 45 [facility] Work Phone: Comment on above: Patients treated wit h Sulfasalazine may generate falsely decreased results for ALT. Anion gap [Moles/Vol] 17 mmol/L 10 - 20 [facility] Work Phone: AST With P-5'-P [Catalytic activity/Vol] 29 U/L 9 - 39 [facility] Medicine Work Phone: Bilirubin [Mass/Vol] 0.5 mg/dL 0.0 - 1.2 [facility] Medicine Work Phone: Calcium [Mass/Vol] 9.2 mg/dL 8.6 - 10.3 [facility] Work Phone: Chloride [Moles/Vol] 98 mmol/L 98 - 107 [facility] Medicine Work Phone: CO2 [Moles/Vol] 27 mmol/L 21 - 32 [facility] Work Phone: Creatinine [Mass/Vol] 1.25 mg/dL above high threshold See Below [facility] Work Phone: Comment on above: Reference Range: 0.5 0 - 1.05 Glucose [Mass/Vol] 121 mg/dL above high threshold 74 - 99 [facility] Work Phone: Potassium [Moles/Vol] 3.3 mmol/L below low threshold 3.5 - 5.3 [facility] Work Phone: Protein [Mass/Vol] 6.6 g/dL 6.4 - 8.2 [facility] Work Phone: Sodium [Moles/Vol] 139 mmol/L 136 - 145 [facility] Work Phone: Urea nitrogen [Mass/Vol] 22 mg/dL 6 - 23 [facility] Work Phone: Laboratory - Hematology and Cell countson 12-13-2021 Basophils/100 WBC (Bld) 0.0 % 0.0 - 2.0 [facility] Work Phone: Lymphocytes/100 WBC (Bld) 20.0 % See Below [facility] Work Phone: Comment on above: Reference Range: 13. 0 - 44.0 Monocytes/100 WBC (Bld) 2.0 % 2.0 - 10.0 [facility] Work Phone: No Panel Informationon 12-13 53 {mL/min/1.73m2} Abnormal >90 [facility] Medicine Work Phone: Comment on above: CALCULATIONS OF FRIDEA MATED GFR ARE PERFORMED USING THE 2020 CKD-EPI STUDY REFIT EQUATION WITHOUT THE RACE VARIABLE FOR THE IDMS-TRACEABLE CREATININE METHODS.https://jasn.asnjournals.org/content/early// N.7627969246 0.00 {x10E9/L} See Below [facility] Internal Medicine Work Phone: Comment on above: Reference Range: 0.0 0 - 0.10 Reference Range: 0.0 0 - 0.70 0.17 {x10E9/L} See Below [facility] Internal Medicine Work Phone: Comment on above: Reference Range: 0.1 0 - 1.00 1.70 {x10E9/L} See Below [facility] Internal Medicine Work Phone: Comment on above: Reference Range: 1.2 0 - 4.80 6.63 {x10E9/L} See Below [facility] Internal Medicine Work Phone: Comment on above: Reference Range: 1.2 0 - 7.00 Reference Range: 1.2 0 - 7.70 0.0 % 0.0 - 6.0 [facility] Medicine Work Phone: 78.0 % See Below [facility] Work Phone: Comment on above: Reference Range: 40. 0 - 80.0 Percent differential counts (%) should be interpreted in the context of the absolute cell counts (cells/L). NORMAL [facility] Medicine Work Phone: Valproic Acid Level, Serumon 12-13-2021 Valproate [Mass/Vol] 23 ug/mL below low threshold 50 - 100 [facility] Medicine Work Phone: Tobacco Screening.on 02-21-2 022 Fall risk assessment b) One or more fall s in the last year [facility] Work Phone: Tobacco use status CPHS b) No [facility] Work Phone: Complete Blood Count + Diffdarrell garduno 12-05-2021 Basophils/100 WBC (Bld) 0.3 % 0.0 - 2.0 [facility] Work Phone: Erythrocyte distribution width (RBC) [Ratio] 13.6 % See Below [facility] Work Phone: Comment on above: Reference Range: 11. 5 - 14.5 Hematocrit (Bld) [Volume fraction] 37.3 % See Below [facility] Work Phone: Comment on above: Reference Range: 36. 0 - 46.0 Hemoglobin (Bld) [Mass/Vol] 12.4 g/dL See Below [facility] Work Phone: Comment on above: Reference Range: 12. 0 - 16.0 Lymphocytes/100 WBC (Bld) 18.4 % See Below [facility] Work Phone: Comment on above: Reference Range: 13. 0 - 44.0 MCHC (RBC) [Mass/Vol] 33.2 g/dL See Below [facility] Work Phone: Comment on above: Reference Range: 32. 0 - 36.0 MCV (RBC) [Entitic vol] 89 fL 80 - 100 [facility] Work Phone: Monocytes/100 WBC (Bld) 8.6 % 2.0 - 10.0 [facility] Work Phone: Neutrophils/100 WBC (Bld) 71.1 % See Below [facility] Work Phone: Comment on above: Reference Range: 40. 0 - 80.0 Platelets (Bld) [#/Vol] 111 10*3/uL below low threshold 150 - 450 [facility] Work Phone: RBC (Bld) [#/Vol] 4.18 {x10E12/L} See Below [facility] Work Phone: Comment on above: Reference Range: 4.0 0 - 5.20 WBC (Bld) [#/Vol] 5.4 10*3/uL 4.4 - 11.3 [facility] Work Phone: Complete Blood Count + Differential 0.00 {x10E9/L} See Below [facility] Work Phone: Comment on above: Reference Range: 0.0 0 - 0.10 Complete Blood Count + Differential 0.10 {x10E9/L} See Below [facility] Work Phone: Comment on above: Reference Range: 0.0 0 - 0.70 Complete Blood Count + Differential 0.50 {x10E9/L} See Below [facility] Work Phone: Comment on above: Reference Range: 0.1 0 - 1.00 Complete Blood Count + Differential 1.00 {x10E9/L} below low threshold See Below [facility] Work Phone: Comment on above: Reference Range: 1.2 0 - 4.80 Complete Blood Count + Differential 3.90 {x10E9/L} See Below [facility] Work Phone: Comment on above: Reference Range: 1.2 0 - 7.70 Percent differential counts (%) should be interpreted in the context of the absolute cell counts (cells/L). Complete Blood Count + Differential 1.6 % 0.0 - 6.0 [facility] Work Phone: Complete Blood Count + Differential 0.1 {/100_WBC} [facility] Work Phone: Laboratory - Chemistry and C hemistry - challengeon 12-05-2021 Albumin BCP dye [Mass/Vol] 3.9 g/dL 3.4 - 5.0 [facility] Work Phone: ALP [Catalytic activity/Vol] 68 U/L 33 - 110 [facility] Work Phone: ALT With P-5'-P [Catalytic activity/Vol] 15 U/L 7 - 45 [facility] Work Phone: Comment on above: Patients treated wit h Sulfasalazine may generate falsely decreased results for ALT. Anion gap [Moles/Vol] 14 mmol/L 10 - 20 [facility] Work Phone: AST With P-5'-P [Catalytic activity/Vol] 19 U/L 9 - 39 [facility] Work Phone: Bilirubin [Mass/Vol] 0.3 mg/dL 0.0 - 1.2 [facility] Work Phone: Calcium [Mass/Vol] 7.9 mg/dL below low threshold 8.6 - 10.3 [facility] Work Phone: Chloride [Moles/Vol] 101 mmol/L 98 - 107 [facility] Work Phone: CO2 [Moles/Vol] 26 mmol/L 21 - 32 [facility] Work Phone: Creatinine [Mass/Vol] 1.33 mg/dL above high threshold See Below [facility] Work Phone: Comment on above: Reference Range: 0.5 0 - 1.05 Glucose [Mass/Vol] 106 mg/dL above high threshold 74 - 99 [facility] Work Phone: Potassium [Moles/Vol] 3.1 mmol/L below low threshold 3.5 - 5.3 [facility] Work Phone: Protein [Mass/Vol] 6.1 g/dL below low threshold 6.4 - 8.2 [facility] Work Phone: Sodium [Moles/Vol] 138 mmol/L 136 - 145 [facility] Work Phone: Urea nitrogen [Mass/Vol] 18 mg/dL 6 - 23 [facility] Work Phone: Lactate, Levelon 12-05-2021 Lactate [Moles/Vol] 1.2 mmol/L 0.4 - 2.0 [facility] Internal [facility] Work Phone: Comment on above: Venipuncture immedia tely after or during the administration of Metamizole may lead to falsely low results. Testing should be performed immediately prior to Metamizole dosing. Lactate [Moles/Vol] 2.9 mmol/L above high threshold 0.4 - 2.0 [facility] Work Phone: Comment on above: Venipuncture immedia tely after or during the administration of Metamizole may lead to falsely low results. Testing should be performed immediately prior to Metamizole dosing. Lipase, Serumon 12-05-2021 Lipase [Catalytic activity/Vol] 42 U/L 9 - 82 [facility] Work Phone: Comment on above: Venipuncture immedia tely after or during the administration of Metamizole may lead to falsely low results. Testing should be performed immediately prior to Metamizole dosing. X-jiwskt-k-benzoquinone imine (metabolite of Acetaminophen) will generate erroneously low results in samples for patients that have taken toxic doses of acetaminophen. No Panel Informationon 12-05 49 {mL/min/1.73m2} Abnormal >90 [facility] Work Phone: Comment on above: CALCULATIONS OF FRIEDA MATED GFR ARE PERFORMED USING THE 2020 CKD-EPI STUDY REFIT EQUATION WITHOUT THE RACE VARIABLE FOR THE IDMS-TRACEABLE CREATININE METHODS.https://jasn.asnjournals.org/content/early// N.3503848443 URINALYSIS WITH CULTURE IF I NDICATEDon 12-05-2021 Color (U) Straw See Below [facility] Work Phone: Comment on above: Reference Range: STR AW,YELLOW Glucose Ql (U) Negative NEGATIVE [facility] Internal Medicine Work Phone: Ketones Ql (U) Negative NEGATIVE [facility] Internal Medicine Work Phone: Leukocyte esterase Test strip Ql (U) Negative NEGATIVE [facility] Work Phone: pH (U) 7.0 [pH] 5.0 - 8.0 [facility] Work Phone: Protein (U) [Mass/Vol] Negative NEGATIVE [facility] Work Phone: RBC (U) [#/Vol] Negative NEGATIVE [facility] Work Phone: Specific gravity (U) [Rel density] 1.010 1 See Below [facility] Work Phone: Comment on above: Reference Range: 1.0 05 - 1.035 URINALYSIS WITH CULTURE IF INDICATED Negative NEGATIVE [facility] Work Phone: URINALYSIS WITH CULTURE IF INDICATED <2.0 0.0 - 1.9 [facility] Work Phone: URINALYSIS WITH CULTURE IF INDICATED CLEAR CLEAR [facility] Work Phone: Tobacco Screening.on 022 Fall risk assessment a) No falls within the last year [facility] Work Phone: Tobacco use status CP b) No [facility] Work Phone: CT C Spine without Contrasto n 11-27-2021 CT Cervical spine WO contrast Normal [facility] Work Phone: CT Head without Contraston 0 11-27-2021 CT Head limited WO contrast Normal [facility] Work Phone: CT T Spine without Contrasto n 11-27-2021 CT Thoracic spine WO contrast Normal [facility] Work Phone: Complete Blood Count + Diffe rentialon 11-27-2021 Basophils/100 WBC (Bld) 0.4 % 0.0 - 2.0 [facility] Work Phone: Erythrocyte distribution width (RBC) [Ratio] 13.6 % See Below [facility] Work Phone: Comment on above: Reference Range: 11. 5 - 14.5 Hematocrit (Bld) [Volume fraction] 38.5 % See Below [facility] Work Phone: Comment on above: Reference Range: 36. 0 - 46.0 Hemoglobin (Bld) [Mass/Vol] 12.9 g/dL See Below [facility] Work Phone: Comment on above: Reference Range: 12. 0 - 16.0 Lymphocytes/100 WBC (Bld) 15.5 % See Below [facility] Work Phone: Comment on above: Reference Range: 13. 0 - 44.0 MCHC (RBC) [Mass/Vol] 33.5 g/dL See Below [facility] Work Phone: Comment on above: Reference Range: 32. 0 - 36.0 MCV (RBC) [Entitic vol] 88 fL 80 - 100 [facility] Work Phone: Monocytes/100 WBC (Bld) 7.4 % 2.0 - 10.0 [facility] Work Phone: Neutrophils/100 WBC (Bld) 74.6 % See Below [facility] Work Phone: Comment on above: Reference Range: 40. 0 - 80.0 Platelets (Bld) [#/Vol] 113 10*3/uL below low threshold 150 - 450 [facility] Work Phone: RBC (Bld) [#/Vol] 4.35 {x10E12/L} See Below [facility] Work Phone: Comment on above: Reference Range: 4.0 0 - 5.20 WBC (Bld) [#/Vol] 5.3 10*3/uL 4.4 - 11.3 [facility] Work Phone: Complete Blood Count + Differential 0.00 {x10E9/L} See Below [facility] Work Phone: Comment on above: Reference Range: 0.0 0 - 0.10 Complete Blood Count + Differential 0.10 {x10E9/L} See Below [facility] Work Phone: Comment on above: Reference Range: 0.0 0 - 0.70 Complete Blood Count + Differential 0.40 {x10E9/L} See Below [facility] Work Phone: Comment on above: Reference Range: 0.1 0 - 1.00 Complete Blood Count + Differential 0.80 {x10E9/L} below low threshold See Below [facility] Work Phone: Comment on above: Reference Range: 1.2 0 - 4.80 Complete Blood Count + Differential 4.00 {x10E9/L} See Below [facility] Work Phone: Comment on above: Reference Range: 1.2 0 - 7.70 Percent differential counts (%) should be interpreted in the context of the absolute cell counts (cells/L). Complete Blood Count + Differential 2.1 % 0.0 - 6.0 [facility] Work Phone: Complete Blood Count + Differential 0.1 {/100_WBC} [facility] Work Phone: Cult, Urineon 11-27-2021 Bacteria identified Cx Nom (U) Abnormal [facility] Work Phone: Laboratory - Chemistry and C hemistry - challengeon 11-27-2021 Albumin BCP dye [Mass/Vol] 3.9 g/dL 3.4 - 5.0 [facility] Work Phone: ALP [Catalytic activity/Vol] 69 U/L 33 - 110 [facility] Internal [facility] Work Phone: ALT With P-5'-P [Catalytic activity/Vol] 17 U/L 7 - 45 [facility] Work Phone: Comment on above: Patients treated wit h Sulfasalazine may generate falsely decreased results for ALT. Anion gap [Moles/Vol] 12 mmol/L 10 - 20 [facility] Work Phone: AST With P-5'-P [Catalytic activity/Vol] 19 U/L 9 - 39 [facility] Work Phone: Bilirubin [Mass/Vol] 0.4 mg/dL 0.0 - 1.2 [facility] Internal [facility] Work Phone: Calcium [Mass/Vol] 8.4 mg/dL below low threshold 8.6 - 10.3 [facility] Work Phone: Chloride [Moles/Vol] 98 mmol/L 98 - 107 [facility] Internal [facility] Work Phone: CO2 [Moles/Vol] 28 mmol/L 21 - 32 [facility] Internal [facility] Work Phone: Creatinine [Mass/Vol] 1.15 mg/dL above high threshold See Below [facility] Work Phone: Comment on above: Reference Range: 0.5 0 - 1.05 Glucose [Mass/Vol] 127 mg/dL above high threshold 74 - 99 [facility] Work Phone: Potassium [Moles/Vol] 3.2 mmol/L below low threshold 3.5 - 5.3 [facility] Work Phone: Protein [Mass/Vol] 6.3 g/dL below low threshold 6.4 - 8.2 [facility] Work Phone: Sodium [Moles/Vol] 135 mmol/L below low threshold 136 - 145 [facility] Work Phone: Urea nitrogen [Mass/Vol] 16 mg/dL 6 - 23 [facility] Work Phone: No Panel Informationon 11-27 59 {mL/min/1.73m2} Abnormal >90 [facility] Work Phone: Comment on above: CALCULATIONS OF FRIEDA MATED GFR ARE PERFORMED USING THE 2020 CKD-EPI STUDY REFIT EQUATION WITHOUT THE RACE VARIABLE FOR THE IDMS-TRACEABLE CREATININE METHODS.https://jasn.asnjournals.org/content/early// N.2057731314 http://UHMUSEPRDAIO0 1:8 080/jose francisco/museweb .dll?RetrieveTestByDate Time?AibggdnNJ=[id number] 0&Date=07-19-2022&Time= 19%3a12%3a03%3a00&TestT ype=ECG&Site=14&OutputT ype=PDF&Ext=PDF [facility] Internal Medicine Work Phone: Please see physicia n note for formal interpretation confirmed by Scribe [facility] Medicine Work Phone: Normal [facility] Internal Medicine Work Phone: [phone] [facility] Medicine Work Phone: [phone] [facility] Medicine Work Phone: [address] [facility] Medicine Work Phone: [address] [facility] Medicine Work Phone: [phone] [facility] Medicine Work Phone: [address] [facility] Work Phone: [address] [facility] Work Phone: [address] [facility] Medicine Work Phone: [address] [facility] Work Phone: [phone] [facility] Work Phone: [phone] [facility] Medicine Work Phone: [address] [facility] Work Phone: [address] [facility] Work Phone: [address] [facility] Work Phone: Troponin I, Serumon 11-27-19 22 Troponin I.cardiac [Mass/Vol] ng/mL See Below [facility] Internal Medicine Work Phone: Comment on above: Reference Range: 0.0 0 - 0.03LESS THAN 0.04 NG/ML: NEGATIVEREPEAT TESTING IN THREE TO SIX HOURSIF CLINICALLY INDICATED.0.04 - 0.5 NG/ML: CONSISTENT WITH POSSIBLECARDIAC DAMAGE AND POSSIBLE INCREASEDCLINICAL RISK.SERIAL MEASUREMENTS MAY HELP ASSESS EXTENT OFMYOCARDIAL DAMAGE.>0.5 NG/ML: CONSISTENT WITH CARDIAC DAMAGE,INCREASED CLINICAL RISK AND MYOCARDIALINFARCTION. SERIAL MEASUREMENTS MAY HELPASSESS EXTENT OF MYOCARDIAL DAMAGE..Note: Troponin I testing is performed using different testing methodology at [facility] than at [facility]. Direct result comparisons should only be made within the same method. URINALYSIS WITH CULTURE IF I NDICATEDon 11-27-2021 Color (U) Yellow See Below [facility] Medicine Work Phone: Comment on above: Reference Range: STR AW,YELLOW Glucose Ql (U) Negative NEGATIVE [facility] Medicine Work Phone: Ketones Ql (U) Negative NEGATIVE [facility] Work Phone: Leukocyte esterase Test strip Ql (U) TRACE Abnormal NEGATIVE [facility] Work Phone: pH (U) 6.0 [pH] 5.0 - 8.0 [facility] Work Phone: Protein (U) [Mass/Vol] Negative NEGATIVE [facility] Work Phone: RBC (U) [#/Vol] Negative NEGATIVE [facility] Internal [facility] Work Phone: Specific gravity (U) [Rel density] 1.014 1 See Below [facility] Work Phone: Comment on above: Reference Range: 1.0 05 - 1.035 URINALYSIS WITH CULTURE IF INDICATED Negative NEGATIVE [facility] Work Phone: URINALYSIS WITH CULTURE IF INDICATED <2.0 0.0 - 1.9 [facility] Work Phone: URINALYSIS WITH CULTURE IF INDICATED HAZY CLEAR [facility] Work Phone: Urinalysis, Microscopicon Hyaline casts LM Ql (Urine sed) 1+ Abnormal [facility] Work Phone: Urinalysis, Microscopic 1+ Abnormal [facility] Work Phone: Urinalysis, Microscopic 19 {/HPF} [facility] Work Phone: Urinalysis, Microscopic 1 {/HPF} 0-5 [facility] Work Phone: Urinalysis, Microscopic 2 {/HPF} 0-5 [facility] Work Phone: Ammonia, Plasmaon 11-04-2021 Ammonia (P) [Moles/Vol] 15 umol/L Abnormal [facility] Work Phone: Comment on above: .REFERENCE VALUESDAY 1 to DAY 7 <110DAY 8 to DAY 14 < 90DAY 15 to ADULT 16-53 Complete Blood Count + Diffe rentialon 11-04-2021 Basophils/100 WBC (Bld) 1.2 % 0.0 - 2.0 [facility] Work Phone: Erythrocyte distribution width (RBC) [Ratio] 13.3 % See Below [facility] Work Phone: Comment on above: Reference Range: 11. 5 - 14.5 Hematocrit (Bld) [Volume fraction] 40.2 % See Below [facility] Work Phone: Comment on above: Reference Range: 36. 0 - 46.0 Hemoglobin (Bld) [Mass/Vol] 13.5 g/dL See Below [facility] Work Phone: Comment on above: Reference Range: 12. 0 - 16.0 Lymphocytes/100 WBC (Bld) 25.3 % See Below [facility] Work Phone: Comment on above: Reference Range: 13. 0 - 44.0 MCHC (RBC) [Mass/Vol] 33.5 g/dL See Below [facility] Work Phone: Comment on above: Reference Range: 32. 0 - 36.0 MCV (RBC) [Entitic vol] 89 fL 80 - 100 [facility] Work Phone: Monocytes/100 WBC (Bld) 6.5 % 2.0 - 10.0 [facility] Work Phone: Neutrophils/100 WBC (Bld) 65.5 % See Below [facility] Work Phone: Comment on above: Reference Range: 40. 0 - 80.0 Platelets (Bld) [#/Vol] 119 10*3/uL below low threshold 150 - 450 [facility] Work Phone: RBC (Bld) [#/Vol] 4.52 {x10E12/L} See Below [facility] Work Phone: Comment on above: Reference Range: 4.0 0 - 5.20 WBC (Bld) [#/Vol] 5.8 10*3/uL 4.4 - 11.3 [facility] Work Phone: Complete Blood Count + Differential 0.10 {x10E9/L} See Below [facility] Work Phone: Comment on above: Reference Range: 0.0 0 - 0.10 Reference Range: 0.0 0 - 0.70 Complete Blood Count + Differential 0.40 {x10E9/L} See Below [facility] Work Phone: Comment on above: Reference Range: 0.1 0 - 1.00 Complete Blood Count + Differential 1.50 {x10E9/L} See Below [facility] Work Phone: Comment on above: Reference Range: 1.2 0 - 4.80 Complete Blood Count + Differential 3.80 {x10E9/L} See Below [facility] Work Phone: Comment on above: Reference Range: 1.2 0 - 7.70 Percent differential counts (%) should be interpreted in the context of the absolute cell counts (cells/L). Complete Blood Count + Differential 1.5 % 0.0 - 6.0 [facility] Work Phone: Complete Blood Count + Differential 0.1 {/100_WBC} [facility] Work Phone: Narciso Bernsteinon 11-04-2021 levETIRAcetam [Mass/Vol] 28 ug/mL 10 - 40 [facility] Work Phone: Comment on above: Brivaracetam may fal sely increase the amount of levetiracetam measured by this method. Serum levels should be confirmed by a valid chromatographic method for patients with these drugs co-present in circulation. Laboratory - Chemistry and C hemistry - challengeon 11-04-2021 Albumin BCP dye [Mass/Vol] 4.2 g/dL 3.4 - 5.0 [facility] Work Phone: ALP [Catalytic activity/Vol] 66 U/L 33 - 110 [facility] Work Phone: ALT With P-5'-P [Catalytic activity/Vol] 16 U/L 7 - 45 [facility] Work Phone: Comment on above: Patients treated wit h Sulfasalazine may generate falsely decreased results for ALT. Anion gap [Moles/Vol] 12 mmol/L 10 - 20 [facility] Work Phone: AST With P-5'-P [Catalytic activity/Vol] 23 U/L 9 - 39 [facility] Work Phone: Bilirubin [Mass/Vol] 0.4 mg/dL 0.0 - 1.2 [facility] Work Phone: Calcium [Mass/Vol] 9.3 mg/dL 8.6 - 10.3 [facility] Work Phone: Chloride [Moles/Vol] 97 mmol/L below low threshold 98 - 107 [facility] Work Phone: CO2 [Moles/Vol] 33 mmol/L above high threshold 21 - 32 [facility] Work Phone: Creatinine [Mass/Vol] 1.20 mg/dL above high threshold See Below [facility] Work Phone: Comment on above: Reference Range: 0.5 0 - 1.05 Glucose [Mass/Vol] 96 mg/dL 74 - 99 [facility] Work Phone: Potassium [Moles/Vol] 3.6 mmol/L 3.5 - 5.3 [facility] Work Phone: Protein [Mass/Vol] 6.5 g/dL 6.4 - 8.2 [facility] Work Phone: Sodium [Moles/Vol] 138 mmol/L 136 - 145 [facility] Work Phone: Urea nitrogen [Mass/Vol] 16 mg/dL 6 - 23 [facility] Work Phone: Laboratory - Drug toxicology on 11-04-2021 Amphetamines Screen Ql (U) Negative NEGATIVE [facility] Work Phone: Comment on above: CUTOFF LEVEL: 500 NG /ML Cross-reactivity has been reported with high concentrations of the following drugs: buproprion, chloroquine, chlorpromazine, ephedrine, mephentermine, fenfluramine, phentermine, phenylpropanolamine, pseudoephedrine, and propranolol. Barbiturates Screen Ql (U) Positive Abnormal NEGATIVE [facility] Work Phone: Comment on above: CUTOFF LEVEL: 200 NG /ML Benzodiazepines Ql (U) Negative NEGATIVE [facility] Work Phone: Comment on above: CUTOFF LEVEL: 200 NG /ML Benzoylecgonine Screen Ql (U) Negative NEGATIVE [facility] Work Phone: Comment on above: CUTOFF LEVEL: 150 NG /ML Butalbital (U) [Mass/Vol] <50 [facility] Work Phone: Comment on above: INTERPRETIVE INFORMA TION: Barbiturates, Urine, QuantitativeMethodology: Quantitative Gas Chromatography-Mass Spectrometry/Quantitative Liquid Chromatography-Tandem Mass Spectrometry.Positive cutoff: 50 ng/mLFor medical purposes only; not valid for forensic use.The absence of expected drug(s) and/or drug metabolite(s) may indicate non-compliance, inappropriate timing of specimen collection relative to drug administration, poor drug absorption, diluted/adulterated urine, or limitations of testing. The concentration value must be greater than or equal to the cutoff to be reported as positive. Interpretive questions should be directed to the laboratory.This test was developed and its performance characteristics determined by [facility]. It has not been cleared or approved by the [place] Food and Drug Administration. This test was performed in a CLIA certified laboratory and is intended for clinical purposes. Cannabinoids Screen Ql (U) Negative NEGATIVE [facility] Work Phone: Comment on above: CUTOFF LEVEL: 50 NG/ ML Methadone Screen Ql (U) Negative NEGATIVE [facility] Work Phone: Comment on above: CUTOFF LEVEL: 150 NG /ML The metabolite O-ssvml-lzfwcyrvgvbjvm (LAAM) is not detected by this method in concentrations that would be found in the urine of patients on LAAM therapy. Opiates Screen Ql (U) Negative NEGATIVE [facility] Work Phone: Comment on above: CUTOFF LEVEL: 300 NG /ML The opiate screen does not detect fentanyl, meperidine, or tramadol. Oxycodone is not consistently detected (refer to Oxycodone Screen, Urine result). oxyCODONE+oxyMORphone Screen Ql (U) Negative NEGATIVE [facility] Work Phone: Comment on above: CUTOFF LEVEL: 100 NG /ML This test will accurately detect both oxycodone and oxymorphone. PENTobarbital (U) [Mass/Vol] <50 [facility] Work Phone: Comment on above: Performed By: JASPER Jean-Baptiste [address] [address] Director: Lizet Hart MD Phencyclidine Ql (U) Negative NEGATIVE [facility] Work Phone: Comment on above: CUTOFF LEVEL: 25 NG/ ML Cross-reactivity has been reported with dextromethorphan. PHENobarbital (U) [Mass/Vol] 2063 ng/mL [facility] Work Phone: Magnesium, Serumon 2 Magnesium [Mass/Vol] 1.64 mg/dL See Below -[facility] Work Phone: Comment on above: Reference Range: 1.6 0 - 2.40 No Panel Informationon 11-04 Negative NEGATIVE [facility] Work Phone: Comment on above: CUTOFF LEVEL: 1 NG/M L The performance characteristics of this test have been determined by the individual laboratory site where testing is performed. This test has not been cleared or approved by the FDA; however, the FDA has determined that such clearance is not necessary. SEE BELOW [facility] Work Phone: Comment on above: Drug screen results are presumptive and should not be used to assess compliance with prescribed medication. Definitive confirmatory drug testing has been added to this sample for any positive screen result and will be reported separately. .Toxicology screening results are reported qualitatively. The concentration must be greater than or equal to the cutoff to be reported as positive. The concentration at which the screening test can detect an individual drug or metabolite varies. The absence of expected drug(s) and/or drug metabolite(s) may indicate non-compliance, inappropriate timing of specimen collection relative to drug administration, poor drug absorption, diluted/adulterated urine, or limitations of testing. For medical purposes only; not valid for forensic use. .Interpretive questions should be directed to the laboratory medical directors. 56 {mL/min/1.73m2} Abnormal >90 [facility] Work Phone: Comment on above: CALCULATIONS OF FREIDA MATED GFR ARE PERFORMED USING THE 2020 CKD-EPI STUDY REFIT EQUATION WITHOUT THE RACE VARIABLE FOR THE IDMS-TRACEABLE CREATININE METHODS.https://jasn.asnjournals.org/content/early// N.3971457135 3.1 ug/mL below low threshold See Below [facility] Work Phone: Comment on above: Reference Range: 10. 0 - 40.0 Reference ranges and high/low indicator flags are provided as general guidelines only. The treating physician must determine appropriate target levels/dosing based on the specific clinical situation. 6.2 ug/mL 5.0 - 10.0 [facility] Work Phone: Comment on above: Reference ranges and high/low indicator flags are provided as general guidelines only. The treating physician must determine appropriate target levels/dosing based on the specific clinical situation. This test was developed and its performance characteristics determined by [facility] [place] ([facility]). It has not been cleared or approved by the FDA. [facility] is regulated under CLIA as qualified to perform high complexity testing. This test should not be regarded as investigational or for research. Tobacco Screening.on 022 Fall risk assessment b) One or more fall s in the last year [facility] Work Phone: Tobacco use status CPHS b) No [facility] Work Phone: Valproic Acid Level, Serumon 11-04-2021 Valproate [Mass/Vol] 57 ug/mL 50 - 100 [facility] Work Phone: Cult, Urineon 10-27-2021 Bacteria identified Cx Nom (U) [facility] Work Phone: Urinalysison 10-27-2021 Color (U) Yellow See Below [facility] Work Phone: Comment on above: Reference Range: STR AW,YELLOW Glucose Ql (U) Negative NEGATIVE [facility] Work Phone: Ketones Ql (U) Negative NEGATIVE [facility] Work Phone: Leukocyte esterase Test strip Ql (U) Negative NEGATIVE [facility] Work Phone: pH (U) 5.0 [pH] 5.0 - 8.0 [facility] Work Phone: Protein (U) [Mass/Vol] Negative NEGATIVE [facility] Work Phone: RBC (U) [#/Vol] Negative NEGATIVE [facility] Work Phone: Specific gravity (U) [Rel density] 1.015 1 See Below [facility] Work Phone: Comment on above: Reference Range: 1.0 05 - 1.035 Urinalysis Negative NEGATIVE [facility] Work Phone: Urinalysis <2.0 0.0 - 1.9 [facility] Work Phone: Urinalysis CLEAR CLEAR [facility] Work Phone: Complete Blood Count + Diffe rentialon 10-01-2021 Basophils/100 WBC (Bld) 0.2 % 0.0 - 2.0 [facility] Work Phone: Erythrocyte distribution width (RBC) [Ratio] 13.3 % See Below [facility] Work Phone: Comment on above: Reference Range: 11. 5 - 14.5 Hematocrit (Bld) [Volume fraction] 38.7 % See Below [facility] Work Phone: Comment on above: Reference Range: 36. 0 - 46.0 Hemoglobin (Bld) [Mass/Vol] 13.0 g/dL See Below [facility] Work Phone: Comment on above: Reference Range: 12. 0 - 16.0 Lymphocytes/100 WBC (Bld) 25.3 % See Below [facility] Work Phone: Comment on above: Reference Range: 13. 0 - 44.0 MCHC (RBC) [Mass/Vol] 33.5 g/dL See Below [facility] Work Phone: Comment on above: Reference Range: 32. 0 - 36.0 MCV (RBC) [Entitic vol] 90 fL 80 - 100 [facility] Work Phone: Monocytes/100 WBC (Bld) 8.1 % 2.0 - 10.0 [facility] Work Phone: Neutrophils/100 WBC (Bld) 64.2 % See Below [facility] Work Phone: Comment on above: Reference Range: 40. 0 - 80.0 Platelets (Bld) [#/Vol] 111 10*3/uL below low threshold 150 - 450 [facility] Work Phone: RBC (Bld) [#/Vol] 4.30 {x10E12/L} See Below [facility] Work Phone: Comment on above: Reference Range: 4.0 0 - 5.20 WBC (Bld) [#/Vol] 5.9 10*3/uL 4.4 - 11.3 [facility] Work Phone: Complete Blood Count + Differential 0.00 {x10E9/L} See Below [facility] Work Phone: Comment on above: Reference Range: 0.0 0 - 0.10 Complete Blood Count + Differential 0.10 {x10E9/L} See Below [facility] Work Phone: Comment on above: Reference Range: 0.0 0 - 0.70 Complete Blood Count + Differential 0.50 {x10E9/L} See Below [facility] Work Phone: Comment on above: Reference Range: 0.1 0 - 1.00 Complete Blood Count + Differential 1.50 {x10E9/L} See Below [facility] Work Phone: Comment on above: Reference Range: 1.2 0 - 4.80 Complete Blood Count + Differential 3.80 {x10E9/L} See Below [facility] Work Phone: Comment on above: Reference Range: 1.2 0 - 7.70 Percent differential counts (%) should be interpreted in the context of the absolute cell counts (cells/L). Complete Blood Count + Differential 2.2 % 0.0 - 6.0 [facility] Work Phone: Complete Blood Count + Differential 0.1 {/100_WBC} [facility] Work Phone: Laboratory - Chemistry and C hemistry - challengeon 10-01-2021 Albumin BCP dye [Mass/Vol] 3.8 g/dL 3.4 - 5.0 [facility] Work Phone: ALP [Catalytic activity/Vol] 67 U/L 33 - 110 [facility] Work Phone: ALT With P-5'-P [Catalytic activity/Vol] 16 U/L 7 - 45 [facility] Work Phone: Comment on above: Patients treated wit h Sulfasalazine may generate falsely decreased results for ALT. Anion gap [Moles/Vol] 9 mmol/L below low threshold 10 - 20 [facility] Work Phone: AST With P-5'-P [Catalytic activity/Vol] 18 U/L 9 - 39 [facility] Work Phone: Bilirubin [Mass/Vol] 0.3 mg/dL 0.0 - 1.2 [facility] Work Phone: Calcium [Mass/Vol] 8.7 mg/dL 8.6 - 10.3 [facility] Work Phone: Chloride [Moles/Vol] 99 mmol/L 98 - 107 [facility] Work Phone: CO2 [Moles/Vol] 33 mmol/L above high threshold 21 - 32 [facility] Work Phone: Creatinine [Mass/Vol] 0.98 mg/dL See Below [facility] Work Phone: Comment on above: Reference Range: 0.5 0 - 1.05 Glucose [Mass/Vol] 98 mg/dL 74 - 99 [facility] Work Phone: Potassium [Moles/Vol] 3.4 mmol/L below low threshold 3.5 - 5.3 [facility] Work Phone: Protein [Mass/Vol] 5.8 g/dL below low threshold 6.4 - 8.2 [facility] Work Phone: Sodium [Moles/Vol] 138 mmol/L 136 - 145 [facility] Work Phone: Urea nitrogen [Mass/Vol] 18 mg/dL 6 - 23 [facility] Work Phone: No Panel Informationon 10-01 >60 >60 [facility] Work Phone: Comment on above: CALCULATIONS OF FRIEDA MATED GFR ARE PERFORMED USING THE MDRD STUDY EQUATION FOR THE IDMS-TRACEABLE CREATININE METHODS. CLIN CHEM 2007;[id number] Vitamin B12, Serumon 021 Cobalamin (Vitamin B12) [Mass/Vol] 598 pg/mL 211 - 911 [facility] Work Phone: Falls Risk Screeningon 08-12 Fall risk assessment b) One or more fall s in the last year [facility] Work Phone: Tobacco use status CPHS b) No [facility] Work Phone: Complete Blood Count + Diffe rentialon 08-05-2021 Basophils/100 WBC (Bld) 0.2 % 0.0 - 2.0 [facility] Work Phone: Erythrocyte distribution width (RBC) [Ratio] 13.1 % See Below [facility] Work Phone: Comment on above: Reference Range: 11. 5 - 14.5 Hematocrit (Bld) [Volume fraction] 42.6 % See Below [facility] Work Phone: Comment on above: Reference Range: 36. 0 - 46.0 Hemoglobin (Bld) [Mass/Vol] 14.2 g/dL See Below [facility] Work Phone: Comment on above: Reference Range: 12. 0 - 16.0 Lymphocytes/100 WBC (Bld) 30.9 % See Below [facility] Work Phone: Comment on above: Reference Range: 13. 0 - 44.0 MCHC (RBC) [Mass/Vol] 33.3 g/dL See Below [facility] Work Phone: Comment on above: Reference Range: 32. 0 - 36.0 MCV (RBC) [Entitic vol] 90 fL 80 - 100 [facility] Work Phone: Monocytes/100 WBC (Bld) 6.0 % 2.0 - 10.0 [facility] Work Phone: Neutrophils/100 WBC (Bld) 61.0 % See Below [facility] Work Phone: Comment on above: Reference Range: 40. 0 - 80.0 Platelets (Bld) [#/Vol] 117 10*3/uL below low threshold 150 - 450 [facility] Work Phone: RBC (Bld) [#/Vol] 4.72 {x10E12/L} See Below [facility] Work Phone: Comment on above: Reference Range: 4.0 0 - 5.20 WBC (Bld) [#/Vol] 5.2 10*3/uL 4.4 - 11.3 [facility] Work Phone: Complete Blood Count + Differential 0.00 {x10E9/L} See Below [facility] Work Phone: Comment on above: Reference Range: 0.0 0 - 0.10 Complete Blood Count + Differential 0.10 {x10E9/L} See Below [facility] Work Phone: Comment on above: Reference Range: 0.0 0 - 0.70 Complete Blood Count + Differential 0.30 {x10E9/L} See Below [facility] Work Phone: Comment on above: Reference Range: 0.1 0 - 1.00 Complete Blood Count + Differential 1.60 {x10E9/L} See Below [facility] Work Phone: Comment on above: Reference Range: 1.2 0 - 4.80 Complete Blood Count + Differential 3.20 {x10E9/L} See Below [facility] Work Phone: Comment on above: Reference Range: 1.2 0 - 7.70 Percent differential counts (%) should be interpreted in the context of the absolute cell counts (cells/L). Complete Blood Count + Differential 1.9 % 0.0 - 6.0 [facility] Work Phone: Complete Blood Count + Differential 0.1 {/100_WBC} [facility] Work Phone: Hemoglobin A1Con 08-05-2021 Glucose [Mass/Vol] 103 mg/dL [facility] Work Phone: HbA1c (Bld) [Mass fraction] 5.2 % [facility] Work Phone: Comment on above: Diagnosis of Diabete s-Adults Non-Diabetic: < or = 5.6% Increased risk for developing diabetes: 5.7-6.4% Diagnostic of diabetes: > or = 6.5%. Monitoring of Diabetes Age (y) Therapeutic Goal (%) Adults: >18 <7.0 Pediatrics: 13-18 <7.5 7-12 <8.0 0- 6 7.5-8.5 [employer]. Diabetes Care 33(S1), Oct 2009. Laboratory - Chemistry and C hemistry - challengeon 08-05-2021 Albumin BCP dye [Mass/Vol] 4.0 g/dL 3.4 - 5.0 [facility] Work Phone: ALP [Catalytic activity/Vol] 61 U/L 33 - 110 [facility] Work Phone: ALT With P-5'-P [Catalytic activity/Vol] 19 U/L 7 - 45 [facility] Work Phone: Comment on above: Patients treated wit h Sulfasalazine may generate falsely decreased results for ALT. Anion gap [Moles/Vol] 11 mmol/L 10 - 20 [facility] Work Phone: AST With P-5'-P [Catalytic activity/Vol] 27 U/L 9 - 39 [facility] Work Phone: Bilirubin [Mass/Vol] 0.4 mg/dL 0.0 - 1.2 [facility] Work Phone: Calcium [Mass/Vol] 8.3 mg/dL below low threshold 8.6 - 10.3 [facility] Work Phone: Chloride [Moles/Vol] 99 mmol/L 98 - 107 [facility] Work Phone: CO2 [Moles/Vol] 30 mmol/L 21 - 32 [facility] Work Phone: Creatinine [Mass/Vol] 1.10 mg/dL above high threshold See Below [facility] Work Phone: Comment on above: Reference Range: 0.5 0 - 1.05 Glucose [Mass/Vol] 86 mg/dL 74 - 99 [facility] Work Phone: Potassium [Moles/Vol] 3.4 mmol/L below low threshold 3.5 - 5.3 [facility] Work Phone: Protein [Mass/Vol] 6.1 g/dL below low threshold 6.4 - 8.2 [facility] Work Phone: Sodium [Moles/Vol] 137 mmol/L 136 - 145 [facility] Work Phone: Urea nitrogen [Mass/Vol] 14 mg/dL 6 - 23 [facility] Work Phone: Lipid Panelon 08-05-2021 Cholesterol [Mass/Vol] 180 mg/dL 0 - 199 [facility] Work Phone: Comment on above: . AGE DESIRABLE BORD CHRISTEN HIGH HIGH 0-19 Y 0 - 169 170 - 199 >/= 200 20-24 Y 0 - 189 190 - 224 >/= 225 >24 Y 0 - 199 200 - 239 >/= 240 All ranges are based on fasting samples. Specific therapeutic targets will vary based on patient-specific cardiac risk.. Pediatric guidelines reference:Pediatrics 2011, 128(S5). Adult guidelines reference: NCEP ATPIII Guidelines, ZEV 2001, 258:2486-97. Venipuncture immediately after or during the administration of Metamizole may lead to falsely low results. Testing should be performed immediately prior to Metamizole dosing. Cholesterol in HDL [Mass/Vol] 40.0 mg/dL [facility] Work Phone: Comment on above: . AGE VERY LOW LOW N ORMAL HIGH 0-19 Y < 35 < 40 40-45 ---- 20- 24 Y ---- < 40 >45 ---- >24 Y ---- < 40 40-60 >60. Cholesterol in LDL [Mass/Vol] 103 mg/dL above high threshold 0 - 99 [facility] Work Phone: Comment on above: . NEAR BORD AGE MARIZOL RABLE OPTIMAL HIGH HIGH VERY HIGH 0-19 Y 0 - 109 --- 110-129 >/= 130 ---- 20-24 Y 0 - 119 --- 120-159 >/= 160 ---- >24 Y 0 - 99 100-129 130-159 160-189 >/=190. Cholesterol.total/Cho lesterol in HDL [Mass ratio] 4.5 {ratio} [facility] Work Phone: Comment on above: REF VALUESDESIRABLE < 3.4HIGH RISK > 5.0 Triglyceride [Mass/Vol] 184 mg/dL above high threshold 0 - 149 [facility] Work Phone: Comment on above: . AGE DESIRABLE BORD CHRISTEN HIGH HIGH VERY HIGH 0 D-90 D 19 - 174 ---- ---- ----91 D- 9 Y 0 - 74 75 - 99 >/= 100 ---- 10-19 Y 0 - 89 90 - 129 >/= 130 ---- 20-24 Y 0 - 114 115 - 149 >/= 150 ---- >24 Y 0 - 149 150 - 199 200- 499 >/= 500. Venipuncture immediately after or during the administration of Metamizole may lead to falsely low results. Testing should be performed immediately prior to Metamizole dosing. Lipid Panel 37 mg/dL 0 - 40 [facility] Internal Medicine Work Phone: No Panel Informationon 08-05 64 {mL/min/1.73m2} >60 [facility] Medicine Work Phone: Comment on above: CALCULATIONS OF FRIEDA MATED GFR ARE PERFORMED USING THE MDRD STUDY EQUATION FOR THE IDMS-TRACEABLE CREATININE METHODS. CLIN CHEM 2007;53:766-72 53 {mL/min/1.73m2} Abnormal >60 [facility] Medicine Work Phone: Uric Acid, Serumon Urate [Mass/Vol] 4.1 mg/dL 2.3 - 6.7 [facility] Internal Medicine Work Phone: Comment on above: Venipuncture immedia tely after or during the administration of Metamizole may lead to falsely low results. Testing should be performed immediately prior to Metamizole dosing. Valproic Acid Level, Serumon 08-05-2021 Valproate [Mass/Vol] 67 ug/mL 50 - 100 [facility] Internal Medicine Work Phone: Tobacco Screening.on 021 Fall risk assessment b) One or more fall s in the last year [facility] Work Phone: Tobacco use status [facility] b) No [facility] Internal [facility] Work Phone: CT C Spine without Contrasto n 07-10-2021 CT Cervical spine WO contrast Normal [facility] [address] Work Phone: CT Facial Boneson 07-10-2021 CT Facial bones Normal [facility] [address] Work Phone: CT Head without Contraston 0 07-10-2021 CT Head limited WO contrast Normal [facility] [address] Work Phone: Radiologyon 07-10-2021 XR Knee 4 Views Normal [facility] [address] Work Phone: No Panel Informationon 07-07 Normal [facility] [address] [employer] Work Phone: Please click on the link to view the study images [facility] [address] Work Phone: Cult, Genitalon 07-01-2021 Bacteria identified Aer cx Nom (Genital specimen) [facility] [address] Work Phone: Cult, Urineon 07-01-2021 Bacteria identified Cx Nom (U) [facility] Work Phone: Tobacco Screening.on 021 Fall risk assessment a) No falls within the last year [facility] Internal Medicine Work Phone: Tobacco use status [facility] b) No [facility] Medicine Work Phone: Tobacco Screening.on 021 Fall risk assessment b) One or more fall s in the last year [facility] Internal Medicine Work Phone: Tobacco use status [facility] b) No [facility] Internal Medicine Work Phone: Laboratory - Chemistry and C hemistry - challengeon 05-18-2021 Anion gap [Moles/Vol] 10 mmol/L 10 - 20 [facility] Internal Medicine Work Phone: Calcium [Mass/Vol] 7.5 mg/dL below low threshold 8.6 - 10.3 [facility] Internal Medicine Work Phone: Chloride [Moles/Vol] 104 mmol/L 98 - 107 [facility] Internal Medicine Work Phone: CO2 [Moles/Vol] 25 mmol/L 21 - 32 [facility] Medicine Work Phone: Creatinine [Mass/Vol] 1.03 mg/dL See Below [facility] Internal Medicine Work Phone: Comment on above: Reference Range: 0.5 0 - 1.05 Glucose [Mass/Vol] 118 mg/dL above high threshold 74 - 99 [facility] Internal Medicine Work Phone: Potassium [Moles/Vol] 3.4 mmol/L below low threshold 3.5 - 5.3 [facility] Work Phone: Sodium [Moles/Vol] 136 mmol/L 136 - 145 [facility] Internal [facility] Work Phone: Urea nitrogen [Mass/Vol] 13 mg/dL 6 - 23 [facility] Work Phone: Anion gap [Moles/Vol] 25 mmol/L above high threshold 10 - 20 [facility] Work Phone: Calcium [Mass/Vol] 8.9 mg/dL 8.6 - 10.3 [facility] Work Phone: Chloride [Moles/Vol] 95 mmol/L below low threshold 98 - 107 [facility] Work Phone: CO2 [Moles/Vol] 18 mmol/L below low threshold 21 - 32 [facility] Work Phone: Creatinine [Mass/Vol] 1.42 mg/dL above high threshold See Below [facility] Work Phone: Comment on above: Reference Range: 0.5 0 - 1.05 Glucose [Mass/Vol] 145 mg/dL above high threshold 74 - 99 [facility] Work Phone: Potassium [Moles/Vol] 2.9 mmol/L Critically low 3.5 - 5.3 [facility] Work Phone: Comment on above: Called- RB to Zenaida Naranjo, 05/18/2021 04:40 Sodium [Moles/Vol] 135 mmol/L below low threshold 136 - 145 [facility] Work Phone: Urea nitrogen [Mass/Vol] 14 mg/dL 6 - 23 [facility] Work Phone: Laboratory - Hematology and Cell countson 05-18-2021 Erythrocyte distribution width (RBC) [Ratio] 14.0 % See Below [facility] Work Phone: Comment on above: Reference Range: 11. 5 - 14.5 Hematocrit (Bld) [Volume fraction] 41.2 % See Below [facility] Work Phone: Comment on above: Reference Range: 36. 0 - 46.0 Hemoglobin (Bld) [Mass/Vol] 13.7 g/dL See Below [facility] Work Phone: Comment on above: Reference Range: 12. 0 - 16.0 MCHC (RBC) [Mass/Vol] 33.3 g/dL See Below [facility] Work Phone: Comment on above: Reference Range: 32. 0 - 36.0 MCV (RBC) [Entitic vol] 92 fL 80 - 100 [facility] Work Phone: Platelets (Bld) [#/Vol] 132 10*3/uL below low threshold 150 - 450 [facility] Work Phone: RBC (Bld) [#/Vol] 4.47 {x10E12/L} See Below [facility] Work Phone: Comment on above: Reference Range: 4.0 0 - 5.20 WBC (Bld) [#/Vol] 8.3 10*3/uL 4.4 - 11.3 [facility] Work Phone: Lactate, Levelon 05-18-2021 Lactate [Moles/Vol] 0.6 mmol/L 0.4 - 2.0 [facility] Internal [facility] Work Phone: Comment on above: Venipuncture immedia tely after or during the administration of Metamizole may lead to falsely low results. Testing should be performed immediately prior to Metamizole dosing. Lactate [Moles/Vol] 10.3 mmol/L Critically high 0.4 - 2.0 [facility] Work Phone: Comment on above: Venipuncture immedia tely after or during the administration of Metamizole may lead to falsely low results. Testing should be performed immediately prior to Metamizole dosing. Called- RB to Zenaida Zuñiga , 05/18/2021 05:36 No Panel Informationon 05-18 69 {mL/min/1.73m2} >60 [facility] Work Phone: Comment on above: CALCULATIONS OF FRIEDA MATED GFR ARE PERFORMED USING THE MDRD STUDY EQUATION FOR THE IDMS-TRACEABLE CREATININE METHODS. CLIN CHEM 2007;53:766-72 57 {mL/min/1.73m2} Abnormal >60 [facility] Work Phone: 48 {mL/min/1.73m2} Abnormal >60 [facility] Work Phone: Comment on above: CALCULATIONS OF FRIEDA MATED GFR ARE PERFORMED USING THE MDRD STUDY EQUATION FOR THE IDMS-TRACEABLE CREATININE METHODS. CLIN CHEM 2007;53:766-72 40 {mL/min/1.73m2} Abnormal >60 [facility] Work Phone: CT Head without Contraston 0 05-15-2021 CT Head limited WO contrast Normal [facility] Work Phone: Complete Blood Count + Diffe rentialon 05-15-2021 Erythrocyte distribution width (RBC) [Ratio] 14.2 % See Below [facility] Work Phone: Comment on above: Reference Range: 11. 5 - 14.5 Hematocrit (Bld) [Volume fraction] 38.3 % See Below [facility] Work Phone: Comment on above: Reference Range: 36. 0 - 46.0 Hemoglobin (Bld) [Mass/Vol] 12.5 g/dL See Below [facility] Work Phone: Comment on above: Reference Range: 12. 0 - 16.0 MCHC (RBC) [Mass/Vol] 32.7 g/dL See Below [facility] Work Phone: Comment on above: Reference Range: 32. 0 - 36.0 MCV (RBC) [Entitic vol] 92 fL 80 - 100 [facility] Work Phone: Platelets (Bld) [#/Vol] 116 10*3/uL below low threshold 150 - 450 [facility] Work Phone: RBC (Bld) [#/Vol] 4.16 {x10E12/L} See Below [facility] Work Phone: Comment on above: Reference Range: 4.0 0 - 5.20 WBC (Bld) [#/Vol] 5.8 10*3/uL 4.4 - 11.3 [facility] Work Phone: Complete Blood Count + Differential SEE MANUAL DIFF [facility] Work Phone: Laboratory - Chemistry and C hemistry - challengeon 05-15-2021 Anion gap [Moles/Vol] 9 mmol/L below low threshold 10 - 20 [facility] Work Phone: Calcium [Mass/Vol] 8.3 mg/dL below low threshold 8.6 - 10.3 [facility] Work Phone: Chloride [Moles/Vol] 104 mmol/L 98 - 107 [facility] Internal [facility] Work Phone: CO2 [Moles/Vol] 29 mmol/L 21 - 32 [facility] Internal [facility] Work Phone: Creatinine [Mass/Vol] 1.07 mg/dL above high threshold See Below [facility] Work Phone: Comment on above: Reference Range: 0.5 0 - 1.05 Glucose [Mass/Vol] 95 mg/dL 74 - 99 [facility] Medicine Work Phone: Potassium [Moles/Vol] 3.9 mmol/L 3.5 - 5.3 [facility] Work Phone: Sodium [Moles/Vol] 138 mmol/L 136 - 145 [facility] Work Phone: Urea nitrogen [Mass/Vol] 13 mg/dL 6 - 23 [facility] Work Phone: Laboratory - Hematology and Cell countson 05-15-2021 Basophils/100 WBC (Bld) 0.0 % 0.0 - 2.0 [facility] Work Phone: Lymphocytes/100 WBC (Bld) 16.0 % See Below [facility] Work Phone: Comment on above: Reference Range: 13. 0 - 44.0 Monocytes/100 WBC (Bld) 1.0 % 2.0 - 10.0 [facility] Work Phone: No Panel Informationon 05-15 0.00 {x10E9/L} See Below [facility] Internal Medicine Work Phone: Comment on above: Reference Range: 0.0 0 - 0.10 0.06 {x10E9/L} below low threshold See Below [facility] Work Phone: Comment on above: Reference Range: 0.0 0 - 0.70 Reference Range: 0.1 0 - 1.00 0.93 {x10E9/L} below low threshold See Below [facility] Work Phone: Comment on above: Reference Range: 1.2 0 - 4.80 4.76 {x10E9/L} See Below [facility] Internal Medicine Work Phone: Comment on above: Reference Range: 1.2 0 - 7.00 Reference Range: 1.2 0 - 7.70 1.0 % 0.0 - 6.0 [facility] Work Phone: 82.0 % See Below [facility] Work Phone: Comment on above: Reference Range: 40. 0 - 80.0 Percent differential counts (%) should be interpreted in the context of the absolute cell counts (cells/L). NORMAL [facility] Work Phone: 67 {mL/min/1.73m2} >60 [facility] Work Phone: Comment on above: CALCULATIONS OF FRIEDA MATED GFR ARE PERFORMED USING THE MDRD STUDY EQUATION FOR THE IDMS-TRACEABLE CREATININE METHODS. CLIN CHEM 2007;53:766-72 55 {mL/min/1.73m2} Abnormal >60 [facility] Work Phone: URINALYSIS WITH CULTURE IF I NDICATEDon 05-15-2021 Color (U) Yellow See Below [facility] Work Phone: Comment on above: Reference Range: STR AW,YELLOW Glucose Ql (U) Negative NEGATIVE [facility] Internal Medicine Work Phone: Ketones Ql (U) Negative NEGATIVE [facility] Internal Medicine Work Phone: Leukocyte esterase Test strip Ql (U) Negative NEGATIVE [facility] Work Phone: pH (U) 7.0 [pH] 5.0 - 8.0 [facility] Work Phone: Protein (U) [Mass/Vol] Negative NEGATIVE [facility] Work Phone: RBC (U) [#/Vol] Negative NEGATIVE [facility] Work Phone: Specific gravity (U) [Rel density] 1.011 1 See Below [facility] Work Phone: Comment on above: Reference Range: 1.0 05 - 1.035 URINALYSIS WITH CULTURE IF INDICATED Negative NEGATIVE [facility] Work Phone: URINALYSIS WITH CULTURE IF INDICATED <2.0 0.0 - 1.9 [facility] Work Phone: URINALYSIS WITH CULTURE IF INDICATED CLEAR CLEAR [facility] Work Phone: Complete Blood Count + Diffe rentialon 05-14-2021 Basophils/100 WBC (Bld) 0.3 % 0.0 - 2.0 [facility] Work Phone: Erythrocyte distribution width (RBC) [Ratio] 14.2 % See Below [facility] Work Phone: Comment on above: Reference Range: 11. 5 - 14.5 Hematocrit (Bld) [Volume fraction] 39.9 % See Below [facility] Work Phone: Comment on above: Reference Range: 36. 0 - 46.0 Hemoglobin (Bld) [Mass/Vol] 13.2 g/dL See Below [facility] Work Phone: Comment on above: Reference Range: 12. 0 - 16.0 Lymphocytes/100 WBC (Bld) 22.2 % See Below [facility] Work Phone: Comment on above: Reference Range: 13. 0 - 44.0 MCHC (RBC) [Mass/Vol] 33.0 g/dL See Below [facility] Work Phone: Comment on above: Reference Range: 32. 0 - 36.0 MCV (RBC) [Entitic vol] 92 fL 80 - 100 [facility] Work Phone: Monocytes/100 WBC (Bld) 7.5 % 2.0 - 10.0 [facility] Work Phone: Neutrophils/100 WBC (Bld) 68.4 % See Below [facility] Work Phone: Comment on above: Reference Range: 40. 0 - 80.0 Platelets (Bld) [#/Vol] 108 10*3/uL below low threshold 150 - 450 [facility] Work Phone: RBC (Bld) [#/Vol] 4.36 {x10E12/L} See Below [facility] Work Phone: Comment on above: Reference Range: 4.0 0 - 5.20 WBC (Bld) [#/Vol] 5.8 10*3/uL 4.4 - 11.3 [facility] Work Phone: Complete Blood Count + Differential 0.00 {x10E9/L} See Below [facility] Work Phone: Comment on above: Reference Range: 0.0 0 - 0.10 Complete Blood Count + Differential 0.10 {x10E9/L} See Below [facility] Work Phone: Comment on above: Reference Range: 0.0 0 - 0.70 Complete Blood Count + Differential 0.40 {x10E9/L} See Below [facility] Work Phone: Comment on above: Reference Range: 0.1 0 - 1.00 Complete Blood Count + Differential 1.30 {x10E9/L} See Below [facility] Work Phone: Comment on above: Reference Range: 1.2 0 - 4.80 Complete Blood Count + Differential 4.00 {x10E9/L} See Below [facility] Work Phone: Comment on above: Reference Range: 1.2 0 - 7.70 Percent differential counts (%) should be interpreted in the context of the absolute cell counts (cells/L). Complete Blood Count + Differential 1.6 % 0.0 - 6.0 [facility] Work Phone: Complete Blood Count + Differential 0.3 {/100_WBC} [facility] Work Phone: Laboratory - Chemistry and C hemistry - challengeon 05-14-2021 Albumin BCP dye [Mass/Vol] 3.9 g/dL 3.4 - 5.0 [facility] Work Phone: ALP [Catalytic activity/Vol] 69 U/L 33 - 110 [facility] Work Phone: ALT With P-5'-P [Catalytic activity/Vol] 12 U/L 7 - 45 [facility] Work Phone: Comment on above: Patients treated wit h Sulfasalazine may generate falsely decreased results for ALT. Anion gap [Moles/Vol] 11 mmol/L 10 - 20 [facility] Work Phone: AST With P-5'-P [Catalytic activity/Vol] 18 U/L 9 - 39 [facility] Work Phone: Bilirubin [Mass/Vol] 0.3 mg/dL 0.0 - 1.2 [facility] Internal [facility] Work Phone: Calcium [Mass/Vol] 8.9 mg/dL 8.6 - 10.3 [facility] Medicine Work Phone: Chloride [Moles/Vol] 101 mmol/L 98 - 107 [facility] Medicine Work Phone: CO2 [Moles/Vol] 30 mmol/L 21 - 32 [facility] Medicine Work Phone: Creatinine [Mass/Vol] 1.18 mg/dL above high threshold See Below [facility] Medicine Work Phone: Comment on above: Reference Range: 0.5 0 - 1.05 Glucose [Mass/Vol] 95 mg/dL 74 - 99 [facility] Medicine Work Phone: Potassium [Moles/Vol] 3.8 mmol/L 3.5 - 5.3 [facility] Work Phone: Protein [Mass/Vol] 5.9 g/dL below low threshold 6.4 - 8.2 [facility] Work Phone: Sodium [Moles/Vol] 138 mmol/L 136 - 145 [facility] Medicine Work Phone: Urea nitrogen [Mass/Vol] 16 mg/dL 6 - 23 [facility] Work Phone: No Panel Informationon 05-14 220 {ng/mL_FEU} < or = 500 [facility] Internal Medicine Work Phone: Comment on above: The VTE Exclusion D- Dimer assay is reported in ng/mL Fibrinogen Equivalent Units (FEU). Per manufacturers instructions for use, a value of less than 500 ng/mL (FEU) may help to exclude DVT or PE in outpatients when the assay is used with a clinical pretest probability assessment. ([facility] must utilize and document eCalc Wells Score Deep Vein Thrombosis Risk for DVT exclusion only; Emergency Department should utilize Guidelines for Emergency Department Use of the VTE Exclusion D-Dimer and Clinical Pretest probability assessment model for DVT or PE exclusion.) 59 {mL/min/1.73m2} Abnormal >60 [facility] Work Phone: Comment on above: CALCULATIONS OF FRIEDA MATED GFR ARE PERFORMED USING THE MDRD STUDY EQUATION FOR THE IDMS-TRACEABLE CREATININE METHODS. CLIN CHEM 2007;53:766-72 49 {mL/min/1.73m2} Abnormal >60 [facility] Medicine Work Phone: Radiologyon 05-14-2021 XR Chest Single view Normal [facility] Internal Medicine Work Phone: Troponin I, Serumon 05-14-20 Troponin I.cardiac [Mass/Vol] ng/mL See Below [facility] Internal Medicine Work Phone: Comment on above: Reference Range: 0.0 0 - 0.03LESS THAN 0.04 NG/ML: NEGATIVEREPEAT TESTING IN THREE TO SIX HOURSIF CLINICALLY INDICATED.0.04 - 0.5 NG/ML: CONSISTENT WITH POSSIBLECARDIAC DAMAGE AND POSSIBLE INCREASEDCLINICAL RISK.SERIAL MEASUREMENTS MAY HELP ASSESS EXTENT OFMYOCARDIAL DAMAGE.>0.5 NG/ML: CONSISTENT WITH CARDIAC DAMAGE,INCREASED CLINICAL RISK AND MYOCARDIALINFARCTION. SERIAL MEASUREMENTS MAY HELPASSESS EXTENT OF MYOCARDIAL DAMAGE..Note: Troponin I testing is performed using different testing methodology at [facility] than at other [facility]. Direct result comparisons should only be made within the same method. Troponin I.cardiac [Mass/Vol] ng/mL See Below [facility] Internal [facility] Work Phone: Comment on above: Reference Range: 0.0 0 - 0.03LESS THAN 0.04 NG/ML: NEGATIVEREPEAT TESTING IN THREE TO SIX HOURSIF CLINICALLY INDICATED.0.04 - 0.5 NG/ML: CONSISTENT WITH POSSIBLECARDIAC DAMAGE AND POSSIBLE INCREASEDCLINICAL RISK.SERIAL MEASUREMENTS MAY HELP ASSESS EXTENT OFMYOCARDIAL DAMAGE.>0.5 NG/ML: CONSISTENT WITH CARDIAC DAMAGE,INCREASED CLINICAL RISK AND MYOCARDIALINFARCTION. SERIAL MEASUREMENTS MAY HELPASSESS EXTENT OF MYOCARDIAL DAMAGE..Note: Troponin I testing is performed using different testing methodology at [facility] than at other [facility]. Direct result comparisons should only be made within the same method. Laboratory - Chemistry and C hemistry - challengeon 04-08-2021 Creatinine (Body fld) [Mass/Vol] 117.1 mg/dL [facility] Internal [facility] Work Phone: Comment on above: A urine creatinine r esult >= 20 mg/dL is considered valid without suspicion of dilution. Samples with results below this range will automatically reflex to specific gravity testing to verify specimen integrity. Laboratory - Drug toxicology on 04-08-2021 1-Hydroxymidazolam Confirm (U) [Mass/Vol] <25 Cutoff <25 [facility] Work Phone: 5-Ogzgndbbmj-3,5-Dime thyl-3,3-Diphenylpyrr olidine (EDDP) Confirm (U) [Mass/Vol] <25 Cutoff <25 [facility] Work Phone: Comment on above: The performance shira acteristics of the Methadone Confirmation, Urine has been validated by the individual laboratory site where testing is performed. It has not been cleared or approved by the FDA. However the FDA has determined that such clearance or approval is not necessary. Our Laboratory is certified under the Clinical Laboratory Improvement Amendments of 1988 (CLIA) as qualified to perform high complexity clinical laboratory testing. 6-Monoacetylmorphine (6-EDMUND) Confirm (U) [Mass/Vol] <25 Cutoff <25 [facility] Work Phone: 7-Aminoclonazepam Confirm (U) [Mass/Vol] <25 Cutoff <25 [facility] Work Phone: Alpha hydroxyalprazolam Confirm (U) [Mass/Vol] <25 Cutoff <25 [facility] Medicine Work Phone: ALPRAZolam Confirm (U) [Mass/Vol] <25 Cutoff <25 [facility] Work Phone: Amobarbital (U) [Mass/Vol] <50 [facility] Work Phone: Amphetamines Screen Ql (U) Negative NEGATIVE [facility] [facility] Work Phone: Comment on above: CUTOFF LEVEL: 500 NG /ML Cross-reactivity has been reported with high concentrations of the following drugs: buproprion, chloroquine, chlorpromazine, ephedrine, mephentermine, fenfluramine, phentermine, phenylpropanolamine, pseudoephedrine, and propranolol. Barbiturates Screen Ql (U) Positive Abnormal NEGATIVE [facility] Work Phone: Comment on above: CUTOFF LEVEL: 200 NG /ML Benzoylecgonine Screen Ql (U) Negative NEGATIVE [facility] Work Phone: Comment on above: CUTOFF LEVEL: 150 NG /ML Butalbital (U) [Mass/Vol] <50 [facility] Work Phone: Comment on above: INTERPRETIVE INFORMA TION: Barbiturates, Urine, QuantitativeMethodology: Quantitative Gas Chromatography-Mass Spectrometry.Positive cutoff: 50 ng/mLFor medical purposes only; not valid for forensic use.The absence of expected drug(s) and/or drug metabolite(s) may indicate non-compliance, inappropriate timing of specimen collection relative to drug administration, poor drug absorption, diluted/adulterated urine, or limitations of testing. The concentration value must be greater than or equal to the cutoff to be reported as positive. Interpretive questions should be directed to the laboratory.This test was developed and its performance characteristics determined by [employer]. It has not been cleared or approved by the [place] Food and Drug Administration. This test was performed in a CLIA certified laboratory and is intended for clinical purposes. Cannabinoids Screen Ql (U) Negative NEGATIVE [facility] Work Phone: Comment on above: CUTOFF LEVEL: 50 NG/ ML chlordiazePOXIDE Confirm (U) [Mass/Vol] <25 Cutoff <25 [facility] Work Phone: clonazePAM Confirm (U) [Mass/Vol] <25 Cutoff <25 [facility] Work Phone: Codeine Confirm (U) [Mass/Vol] <50 Cutoff <50 [facility] Work Phone: diazePAM Confirm (U) [Mass/Vol] <25 Cutoff <25 [facility] Work Phone: fentaNYL Confirm (U) [Mass/Vol] <2.5 Cutoff<2.5 [facility] Work Phone: HYDROcodone Confirm (U) [Mass/Vol] <25 Cutoff <25 -[facility] Work Phone: HYDROmorphone Confirm (U) [Mass/Vol] <25 Cutoff <25 [facility] Work Phone: LORazepam Confirm (U) [Mass/Vol] >1000 Abnormal Cutoff <25 -[facility] Work Phone: Comment on above: Consistent with use of a drug containing lorazepam, such as Ativan. Methadone Confirm (U) [Mass/Vol] <25 Cutoff <25 -[facility] Work Phone: Midazolam Confirm (U) [Mass/Vol] <25 Cutoff <25 -[facility] Work Phone: Morphine Confirm (U) [Mass/Vol] <50 Cutoff <50 [facility] Work Phone: Nordiazepam Confirm (U) [Mass/Vol] <25 Cutoff <25 -[facility] Work Phone: Norfentanyl Confirm (U) [Mass/Vol] <2.5 Cutoff<2.5 [facility] Work Phone: Comment on above: The performance shira acteristics of the Fentanyl Confirmation, Urine has been validated by the individual laboratory site where testing is performed. It has not been cleared or approved by the FDA. However the FDA has determined that such clearance or approval is not necessary. Our Laboratory is certified under the Clinical Laboratory Improvement Amendments of 1988 (CLIA) as qualified to perform high complexity clinical laboratory testing. Norhydrocodone Confirm (U) [Mass/Vol] <25 Cutoff <25 [facility] Work Phone: Noroxycodone Confirm (U) [Mass/Vol] <25 Cutoff <25 [facility] Work Phone: Nortramadol (U) [Mass/Vol] <50 Cutoff <50 [facility] Work Phone: Comment on above: The performance shira acteristics of the Tramadol Confirmation, Urine has been validated by the individual laboratory site where testing is performed. It has not been cleared or approved by the FDA. However the FDA has determined that such clearance or approval is not necessary. Our Laboratory is certified under the Clinical Laboratory Improvement Amendments of 1988 (CLIA) as qualified to perform high complexity clinical laboratory testing. Oxazepam Confirm (U) [Mass/Vol] <25 Cutoff <25 [facility] Work Phone: oxyCODONE Confirm (U) [Mass/Vol] <25 Cutoff <25 [facility] Work Phone: oxyMORphone Confirm (U) [Mass/Vol] <25 [facility] Work Phone: Comment on above: The performance shira acteristics of the Opiate Confirmation, Urine has been validated by the individual laboratory site where testing is performed. It has not been cleared or approved by the FDA. However the FDA has determined that such clearance or approval is not necessary. Our Laboratory is certified under the Clinical Laboratory Improvement Amendments of 1988 (CLIA) as qualified to perform high complexity clinical laboratory testing. PENTobarbital (U) [Mass/Vol] <50 [facility] Work Phone: Phencyclidine Ql (U) Negative NEGATIVE [facility] Work Phone: Comment on above: CUTOFF LEVEL: 25 NG/ ML Cross-reactivity has been reported with dextromethorphan. PHENobarbital (U) [Mass/Vol] 2544 ng/mL [facility] Work Phone: Secobarbital (U) [Mass/Vol] <50 [facility] Work Phone: Comment on above: Performed By: JASPER [address] [place] [id number] Director: Lizet Hart MD Temazepam Confirm (U) [Mass/Vol] <25 Cutoff <25 [facility] Work Phone: Comment on above: The performance shira acteristics of the Benzodiazepine Confirmation, Urine has been validated by the individual laboratory site where testing is performed. It has not been cleared or approved by the FDA. However the FDA has determined that such clearance or approval is not necessary. Our Laboratory is certified under the Clinical Laboratory Improvement Amendments of 1988 (CLIA) as qualified to perform high complexity clinical laboratory testing. traMADol Confirm (U) [Mass/Vol] <50 Cutoff <50 [facility] Work Phone: Zolpidem (U) [Mass/Vol] <25 Cutoff <25 [facility] Internal [facility] Work Phone: No Panel Informationon 04-08 <25 Cutoff <25 [facility] Work Phone: Comment on above: The performance shira acteristics of the Zolpidem Confirmation, Urine has been validated by the individual laboratory site where testing is performed. It has not been cleared or approved by the FDA. However the FDA has determined that such clearance or approval is not necessary. Our Laboratory is certified under the Clinical Laboratory Improvement Amendments of 1988 (CLIA) as qualified to perform high complexity clinical laboratory testing. SEE BELOW [facility] Work Phone: Comment on above: Drug screen results are presumptive and should not be used to assess compliance with prescribed medication. Definitive confirmatory drug testing has been added to this sample for any positive screen result and will be reported separately. .Toxicology screening results are reported qualitatively. The concentration must be greater than or equal to the cutoff to be reported as positive. The concentration at which the screening test can detect an individual drug or metabolite varies. The absence of expected drug(s) and/or drug metabolite(s) may indicate non-compliance, inappropriate timing of specimen collection relative to drug administration, poor drug absorption, diluted/adulterated urine, or limitations of testing. For medical purposes only; not valid for forensic use. .Interpretive questions should be directed to the laboratory medical directors. Tobacco Screening.on 021 Fall risk assessment b) One or more fall s in the last year [facility] Internal [facility] Work Phone: Tobacco use status CPHS b) No [facility] Work Phone: Complete Blood Count + Diffe rentialon 01-14-2021 Basophils (Bld) [#/Vol] 0.00 {x10E9/L} See Below [facility] Work Phone: Comment on above: Reference Range: 0.0 0 - 0.10 Basophils/100 WBC (Bld) 0.1 % 0.0 - 2.0 [facility] Work Phone: Eosinophils (Bld) [#/Vol] 0.10 {x10E9/L} See Below [facility] Work Phone: Comment on above: Reference Range: 0.0 0 - 0.70 Eosinophils/100 WBC (Bld) 2.1 % 0.0 - 6.0 [facility] Work Phone: Erythrocyte distribution width (RBC) [Ratio] 13.6 % See Below [facility] Work Phone: Comment on above: Reference Range: 11. 5 - 14.5 Hematocrit (Bld) [Volume fraction] 40.2 % See Below [facility] Work Phone: Comment on above: Reference Range: 36. 0 - 46.0 Hemoglobin (Bld) [Mass/Vol] 13.3 g/dL See Below [facility] Work Phone: Comment on above: Reference Range: 12. 0 - 16.0 Lymphocytes (Bld) [#/Vol] 1.60 {x10E9/L} See Below [facility] Work Phone: Comment on above: Reference Range: 1.2 0 - 4.80 Lymphocytes/100 WBC (Bld) 27.9 % See Below [facility] Work Phone: Comment on above: Reference Range: 13. 0 - 44.0 MCHC (RBC) [Mass/Vol] 33.1 g/dL See Below [facility] Work Phone: Comment on above: Reference Range: 32. 0 - 36.0 MCV (RBC) [Entitic vol] 91 fL 80 - 100 [facility] Work Phone: Monocytes (Bld) [#/Vol] 0.40 {x10E9/L} See Below [facility] Work Phone: Comment on above: Reference Range: 0.1 0 - 1.00 Monocytes/100 WBC (Bld) 7.0 % 2.0 - 10.0 [facility] Work Phone: Neutrophils (Bld) [#/Vol] 3.60 {x10E9/L} See Below [facility] Work Phone: Comment on above: Reference Range: 1.2 0 - 7.70 Percent differential counts (%) should be interpreted in the context of the absolute cell counts (cells/L). Neutrophils/100 WBC (Bld) 62.9 % See Below [facility] Work Phone: Comment on above: Reference Range: 40. 0 - 80.0 Platelets (Bld) [#/Vol] 102 {x10E9/L} below low threshold 150 - 450 [facility] Work Phone: RBC (Bld) [#/Vol] 4.43 {x10E12/L} See Below [facility] Work Phone: Comment on above: Reference Range: 4.0 0 - 5.20 WBC (Bld) [#/Vol] 0.1 {/100_WBC} [facility] Work Phone: WBC (Bld) [#/Vol] 5.7 {x10E9/L} 4.4 - 11.3 [facility] Work Phone: Metabolic Panelon 01-14-2021 ALP [Catalytic activity/Vol] 58 U/L 33 - 110 [facility] Work Phone: Anion gap [Moles/Vol] 13 mmol/L 10 - 20 [facility] Work Phone: Bilirubin [Mass/Vol] 0.3 mg/dL 0.0 - 1.2 -[facility] Internal [facility] Work Phone: Calcium [Mass/Vol] 8.2 mg/dL below low threshold 8.6 - 10.3 [facility] Work Phone: Chloride [Moles/Vol] 101 mmol/L 98 - 107 [facility] Work Phone: CO2 [Moles/Vol] 29 mmol/L 21 - 32 [facility] Work Phone: Creatinine [Mass/Vol] 1.21 mg/dL above high threshold See Below [facility] Work Phone: Comment on above: Reference Range: 0.5 0 - 1.05 Glucose [Mass/Vol] 127 mg/dL above high threshold 74 - 99 [facility] Work Phone: Potassium [Moles/Vol] 3.1 mmol/L below low threshold 3.5 - 5.3 [facility] Work Phone: Protein [Mass/Vol] 5.4 g/dL below low threshold 6.4 - 8.2 [facility] Work Phone: Sodium [Moles/Vol] 140 mmol/L 136 - 145 [facility] Work Phone: Urea nitrogen [Mass/Vol] 15 mg/dL 6 - 23 [facility] Work Phone: Otheron 01-14-2021 Albumin BCP dye [Mass/Vol] 3.6 g/dL 3.4 - 5.0 [facility] Work Phone: ALT With P-5'-P [Catalytic activity/Vol] 7 U/L 7 - 45 [facility] Work Phone: Comment on above: Patients treated wit h Sulfasalazine may generate falsely decreased results for ALT. AST With P-5'-P [Catalytic activity/Vol] 12 U/L 9 - 39 [facility] Work Phone: 58 {mL/min/1.73m2} Abnormal >60 [facility] Work Phone: Comment on above: CALCULATIONS OF FRIEDA MATED GFR ARE PERFORMED USING THE MDRD STUDY EQUATION FOR THE IDMS-TRACEABLE CREATININE METHODS. CLIN CHEM 2007;53:[id number] 48 {mL/min/1.73m2} Abnormal >60 [facility] Work Phone: Basic Metabolic Panelon 11-18 Anion gap [Moles/Vol] 7 mmol/L Low 10 - 2 0 mmol/L [facility] Calcium [Mass/Vol] 8.4 mg/dL 8.4 - 10. 2 mg/dL [facility] Chloride [Moles/Vol] 103 mmol/L 98 - 10 8 mmol/L [facility] Creatinine [Mass/Vol] 1.35 mg/dL High 0.40 - 1.[address] [facility] GFR/1.73 sq M predicted among non-blacks MDRD (S/P/Bld) [Vol rate/Area] The eGFR should be used for monitoring renal function only and not for medication dosing. [facility] GFR/1.73 sq M.predicted CKD-EPI (S/P/Bld) [Vol rate/Area] 47 Low >=60 mL/min/1.73 m2 [facility] Glucose [Mass/Vol] 90 mg/dL 65 - 99 mg/dL [facility] HCO3 [Moles/Vol] 31 mmol/L 21 - 32 mmol/L [facility] Interpretation and review of laboratory results Abnormal [facility] Potassium [Moles/Vol] 3.3 mmol/L Low 3.5 - 5.1 mmol/L [facility] Sodium [Moles/Vol] 138 mmol/L 135 - 145 mmol/L [facility] Urea nitrogen [Mass/Vol] 16 mg/dL 8 - 25 mg/dL [facility] Urea nitrogen/Creatinine [Mass ratio] 11.9 mg/mg [facility] CBCon 12-02-2020 Erythrocyte distribution width (RBC) [Entitic vol] 12.6 % 11.6 - 14.8 % [facility] Hematocrit (Bld) [Volume fraction] 41.1 % 36.0 - 46.0 % [facility] Hemoglobin (Bld) [Mass/Vol] 13.3 g/dL 12.0 - 16.0 g/dL [facility] Interpretation and review of laboratory results Abnormal [facility] MCH (RBC) [Entitic mass] 30.0 pg 26.0 - 34.0 pg [facility] MCHC (RBC) [Mass/Vol] 32.4 g/dL 31.0 - 37.0 g/dL [facility] MCV (RBC) [Entitic vol] 92.8 fL 80.0 - 100.0 fL [facility] Nucleated RBC (Bld) [#/Vol] 0.00 10*3/uL [facility] Nucleated RBC/100 WBC (Bld) [Ratio] 0.0 % [facility] Platelet mean volume (Bld) [Entitic vol] 10.5 fL 9.4 - 12.4 fL [facility] Platelets (Bld) [#/Vol] 118 10*3/uL Low [facility] RBC (Bld) [#/Vol] 4.43 10*6/uL [facility] WBC (Bld) [#/Vol] 5.33 10*3/uL [facility] CBC WITH AUTO DIFFERENTIALon 12-01-2020 Basophils (Bld) [#/Vol] 0.02 10*3/uL [facility] Basophils/100 WBC (Bld) 0.3 % [facility] Eosinophils (Bld) [#/Vol] 0.01 10*3/uL [facility] Eosinophils/100 WBC (Bld) 0.1 % [facility] Erythrocyte distribution width (RBC) [Entitic vol] 12.6 % 11.6 - 14.8 % [facility] Hematocrit (Bld) [Volume fraction] 40.7 % 36.0 - 46.0 % [facility] Hemoglobin (Bld) [Mass/Vol] 14.0 g/dL 12.0 - 16.0 g/dL [facility] Immature granulocytes (Bld) [#/Vol] 0.14 10*3/uL [facility] Immature granulocytes/100 WBC (Bld) 1.90 % [facility] Comment on above: The IG parameter is the percentage of metamyelocytes, myelocytes and promyelocytes. An immature granulocyte count (IG) of 1% or more suggests the possibility of infection, an IG count of 3% is very likely related to an infection. Interpretation and review of laboratory results Abnormal [facility] Lymphocytes (Bld) [#/Vol] 1.35 10*3/uL [facility] Lymphocytes/100 WBC (Bld) 18.1 % [facility] MCH (RBC) [Entitic mass] 30.0 pg 26.0 - 34.0 pg [facility] MCHC (RBC) [Mass/Vol] 34.4 g/dL 31.0 - 37.0 g/dL [facility] MCV (RBC) [Entitic vol] 87.2 fL 80.0 - 100.0 fL [facility] Monocytes (Bld) [#/Vol] 0.52 10*3/uL [facility] Monocytes/100 WBC (Bld) 7.0 % [facility] Neutrophils (Bld) [#/Vol] 5.40 10*3/uL [facility] Neutrophils/100 WBC (Bld) 72.6 % [facility] Nucleated RBC (Bld) [#/Vol] 0.00 10*3/uL [facility] Nucleated RBC/100 WBC (Bld) [Ratio] 0.0 % [facility] Platelet mean volume (Bld) [Entitic vol] 10.5 fL 9.4 - 12.4 fL [facility] Platelets (Bld) [#/Vol] 137 10*3/uL Low [facility] RBC (Bld) [#/Vol] 4.67 10*6/uL [facility] WBC (Bld) [#/Vol] 7.44 10*3/uL [facility] COVID-19/Influenza A,B Molec ularon 12-01-2020 Influenza A Not Detected Not Detected [facility] Influenza B Not Detected Not Detected [facility] Interpretation and review of laboratory results Normal [facility] SARS-CoV-2 Not Detected Not Detected [facility] This test was perfor med under the FDA's Emergency Use Authorization (EUA). Testing was performed using the [employer] SARS-CoV-2 RT-PCR & Influenza A/B Nucleic Acid Test on the En [employer] System. This test has not been approved for use in asymptomatic patients and its performance in this patient population has not been evaluated. Negative results do not rule out the presence of SARS-CoV-2, influenza A, and/or influenza B. Fact sheets for the EUA can be found at the following links: For Healthcare Providers: https://www.fda.gov/med ia/534289/download For Patients: https://www.fda.gov/med ia/543229/download [facility] CT CERVICAL SPINE WITHOUT CO NTRASTon 12-01-2020 1. No acute bone abnormality. 2. Multilevel mild-moderate degenerative disc disease. Workstation ID: [id number] [facility] Interface, Rad In Fu ji Speechq - 12/01/2020 1:16 PM EST EXAMINATION: CT CERVICAL SPINE WITHOUT CONTRAST HISTORY: ORDERING SYSTEM PROVIDED HISTORY: Neck pain, recent trauma, TECHNOLOGIST PROVIDED HISTORY: Injury/Trauma Reason for exam: pt had a seizure, FELL OFF TOILET.STRUCK TOP OF HEAD, head and neck pain, tremors Encounter Type: Initial Mechanism of injury: ORDERING SYSTEM PROVIDED DIAGNOSIS CODES: COMPARISON: None TECHNIQUE: Multiplanar CT imaging of the cervical spine without IV contrast. Dose reduction techniques were achieved by using automated exposure control and/or adjustment of mA and/or kV according to patient size and/or use of iterative reconstruction technique. FINDINGS: VERTEBRAL BODIES: Mild straightening of the normal lordotic curvature. No fracture, pars defect, or osseous lesion. FACET JOINTS: No disruption or abnormal widening. CERVICAL DISCS: Moderate narrowing C3-4, C4-5, C5-6 with small posterior endplate osteophytes. CENTRAL CANAL: No evidence of hemorrhage. PARASPINAL AREA: No visible mass. IMPRESSION: 1. No acute bone abnormality. 2. Multilevel mild-moderate degenerative disc disease. Workstation ID: [id number] [facility] EXAMINATION: CT CERVICAL SPINE WITHOUT CONTRAST HISTORY: ORDERING SYSTEM PROVIDED HISTORY: Neck pain, recent trauma, TECHNOLOGIST PROVIDED HISTORY: Injury/Trauma Reason for exam: pt had a seizure, FELL OFF TOILET.STRUCK TOP OF HEAD, head and neck pain, tremors Encounter Type: Initial Mechanism of injury: ORDERING SYSTEM PROVIDED DIAGNOSIS CODES: COMPARISON: None TECHNIQUE: Multiplanar CT imaging of the cervical spine without IV contrast. Dose reduction techniques were achieved by using automated exposure control and/or adjustment of mA and/or kV according to patient size and/or use of iterative reconstruction technique. FINDINGS: VERTEBRAL BODIES: Mild straightening of the normal lordotic curvature. No fracture, pars defect, or osseous lesion. FACET JOINTS: No disruption or abnormal widening. CERVICAL DISCS: Moderate narrowing C3-4, C4-5, C5-6 with small posterior endplate osteophytes. CENTRAL CANAL: No evidence of hemorrhage. PARASPINAL AREA: No visible mass. [facility] Chem 7on 12-01-2020 Anion gap [Moles/Vol] 12 mmol/L 10 - 2 0 mmol/L [facility] Chloride [Moles/Vol] 101 mmol/L 98 - 10 8 mmol/L [facility] Creatinine [Mass/Vol] 1.52 mg/dL High 0.40 - 1.[address] [facility] GFR/1.73 sq M predicted among non-blacks MDRD (S/P/Bld) [Vol rate/Area] The eGFR should be used for monitoring renal function only and not for medication dosing. [facility] GFR/1.73 sq M.predicted CKD-EPI (S/P/Bld) [Vol rate/Area] 41 Low >=60 mL/min/1.73 m2 [facility] Glucose [Mass/Vol] 111 mg/dL High 65 - 99 mg/dL [facility] HCO3 [Moles/Vol] 26 mmol/L 21 - 32 mmol/L [facility] Potassium [Moles/Vol] 3.1 mmol/L Low 3.5 - 5.1 mmol/L [facility] Sodium [Moles/Vol] 136 mmol/L 135 - 145 mmol/L [facility] Urea nitrogen [Mass/Vol] 15 mg/dL 8 - 25 mg/dL [facility] Urea nitrogen/Creatinine [Mass ratio] 9.9 mg/mg Low [facility] Hepatic Function Panel (LFT) on 12-01-2020 Albumin [Mass/Vol] 3.8 g/dL 3.2 - 5.2 g/dL [facility] ALP [Catalytic activity/Vol] 72 U/L 40 - 150 U/L [facility] ALT [Catalytic activity/Vol] 21 U/L 14 - 65 U/L [facility] AST [Catalytic activity/Vol] 49 U/L High 0 - 45 U/L [facility] Bilirubin [Mass/Vol] 0.5 mg/dL 0.0 - 1 .3 mg/dL [facility] [facility] Bilirubin.conjugated [Mass/Vol] 0.1 mg/dL 0.0 - 0.4 mg/dL [facility] Protein [Mass/Vol] 7.2 g/dL 6.0 - 8.0 g/dL [facility] Otheron 12-01-2020 Extra Tube Hold for add-ons. [facility] Comment on above: Auto resulted. Interface, Rad In Ronnie ji Speechq - 12/01/2020 1:19 PM EST EXAMINATION: CT MAXILLOFACIAL WITHOUT CONTRAST; CT HEAD OR BRAIN WITHOUT CONTRAST HISTORY: ORDERING SYSTEM PROVIDED HISTORY: nose injury, TECHNOLOGIST PROVIDED HISTORY: Injury/Trauma Reason for exam: pt had a seizure, FELL OFF TOILET.STRUCK TOP OF HEAD, head and neck pain, tremors Encounter Type: Initial Mechanism of injury: fall ORDERING SYSTEM PROVIDED DIAGNOSIS CODES: ; ORDERING SYSTEM PROVIDED HISTORY: head trauma, seizure, TECHNOLOGIST PROVIDED HISTORY: Injury/Trauma Reason for exam: pt had a seizure, FELL OFF TOILET.STRUCK TOP OF HEAD, head and neck pain, tremors Encounter Type: Initial Mechanism of injury: fall ORDERING SYSTEM PROVIDED DIAGNOSIS CODES: COMPARISON: None TECHNIQUE: CT examination of the head without IV contrast. Dose reduction techniques were achieved by using automated exposure control and/or adjustment of mA and/or kV according to patient size and/or use of iterative reconstruction technique. FINDINGS: BRAIN: No edema, hemorrhage, mass, acute infarction, or inappropriate atrophy. CSF SPACES: No hydrocephalus, subarachnoid hemorrhage, or mass. Appropriate for age. SKULL: No fracture, mass, or other significant visible lesion. SINUSES: Mucocele versus retention cyst within the base of the left maxillary sinus suggestive of chronic sinusitis. ORBITS: No appreciable abnormality on the limited views. Facial bones:: Nondisplaced fractures of the right and left nasal bones. IMPRESSION: 1. Normal CT appearance of the brain. 2. Nondisplaced fractures of the right and left nasal bones. 3. Left maxillary chronic sinusitis. Workstation ID: [id number] [facility] EXAMINATION: CT MAXILLOFACIAL WITHOUT CONTRAST; CT HEAD OR BRAIN WITHOUT CONTRAST HISTORY: ORDERING SYSTEM PROVIDED HISTORY: nose injury, TECHNOLOGIST PROVIDED HISTORY: Injury/Trauma Reason for exam: pt had a seizure, FELL OFF TOILET.STRUCK TOP OF HEAD, head and neck pain, tremors Encounter Type: Initial Mechanism of injury: fall ORDERING SYSTEM PROVIDED DIAGNOSIS CODES: ; ORDERING SYSTEM PROVIDED HISTORY: head trauma, seizure, TECHNOLOGIST PROVIDED HISTORY: Injury/Trauma Reason for exam: pt had a seizure, FELL OFF TOILET.STRUCK TOP OF HEAD, head and neck pain, tremors Encounter Type: Initial Mechanism of injury: fall ORDERING SYSTEM PROVIDED DIAGNOSIS CODES: COMPARISON: None TECHNIQUE: CT examination of the head without IV contrast. Dose reduction techniques were achieved by using automated exposure control and/or adjustment of mA and/or kV according to patient size and/or use of iterative reconstruction technique. FINDINGS: BRAIN: No edema, hemorrhage, mass, acute infarction, or inappropriate atrophy. CSF SPACES: No hydrocephalus, subarachnoid hemorrhage, or mass. Appropriate for age. SKULL: No fracture, mass, or other significant visible lesion. SINUSES: Mucocele versus retention cyst within the base of the left maxillary sinus suggestive of chronic sinusitis. ORBITS: No appreciable abnormality on the limited views. Facial bones:: Nondisplaced fractures of the right and left nasal bones. [facility] 1. Normal CT appeara nce of the brain. 2. Nondisplaced fractures of the right and left nasal bones. 3. Left maxillary chronic sinusitis. Workstation ID: [id number] [facility] Interpretation and review of laboratory results Abnormal [facility] TSH with Reflex Free T4on Interpretation and review of laboratory results Normal [facility] TSH Qn 4.18 m[IU]/L [facility] Complete Blood Count + Diffe rentialon 09-07-2019 Erythrocyte distribution width (RBC) [Ratio] 15.2 % above high threshold See Below [employer] Work Phone: Comment on above: Reference Range: 11. 5 - 14.5 Ordering Provider: Milagro Guadarrama03 Hematocrit (Bld) [Volume fraction] 38.5 % See Below [employer] Work Phone: Comment on above: Reference Range: 36. 0 - 46.0 Ordering Provider: Milagro PADRON 64457 Hemoglobin (Bld) [Mass/Vol] 13.1 g/dL See Below [employer] Work Phone: Comment on above: Reference Range: 12. 0 - 16.0 Ordering Provider: Milagro PADRON 93430 MCHC (RBC) [Mass/Vol] 34.0 g/dL See Below [facility] [employer] Work Phone: Comment on above: Reference Range: 32. 0 - 36.0 Ordering Provider: Milagro PADRON 91909 MCV (RBC) [Entitic vol] 91 fL 80 - 100 Mayi [employer] Work Phone: Comment on above: Ordering Provider: Milagro PADRON 92804 Platelets (Bld) [#/Vol] 92 {x10E9/L} below low threshold 150 - 450 [employer]i [employer] Work Phone: Comment on above: Ordering Provider: Milagro AVIMilagro KELLYREN 01289 RBC (Bld) [#/Vol] 4.25 {x10E12/L} See Below [facility] [address] Work Phone: Comment on above: Reference Range: 4.0 0 - 5.20 Ordering Provider: Milagro AVID JAMIEHREN 68633 WBC (Bld) [#/Vol] 5.9 {x10E9/L} 4.4 - 11.3 [facility] [address] Work Phone: Comment on above: Ordering Provider: Milagro PADRON 18713 Complete Blood Count + Differential SEE MANUAL DIFF [facility] [address] Work Phone: Comment on above: Ordering Provider: Milagro PADRON 12197 Hematologyon 09-07-2019 Band form neutrophils/100 WBC (Bld) 1.0 % 0.0 - 5.0 [facility] [employer] Work Phone: Comment on above: Ordering Provider: Milagro AVIMilagro KELLYREN 67545 Basophils (Bld) [#/Vol] 0.00 {x10E9/L} See Below [facility] [address] Work Phone: Comment on above: Reference Range: 0.0 0 - 0.10 Ordering Provider: Milagro AVIMilagro KELLYREN 44699 Basophils/100 WBC (Bld) 0.0 % 0.0 - 2.0 [facility] [address] Work Phone: Comment on above: Ordering Provider: Milgaro AVID BAEHREN 21986 Eosinophils (Bld) [#/Vol] 0.00 {x10E9/L} See Below [facility] [address] Work Phone: Comment on above: Reference Range: 0.0 0 - 0.70 Ordering Provider: Milagro AVID BAEHREN 00023 Eosinophils/100 WBC (Bld) 0.0 % 0.0 - 6.0 [facility] [address] Work Phone: Comment on above: Ordering Provider: Milagro PADRON 89987 Lymphocytes (Bld) [#/Vol] 1.59 {x10E9/L} See Below [employer] Phone: Comment on above: Reference Range: 1.2 0 - 4.80 Ordering Provider: Milagro PADRON 93710 Lymphocytes/100 WBC (Bld) 27.0 % See Below [employer] Work Phone: Comment on above: Reference Range: 13. 0 - 44.0 Ordering Provider: Milagro PADRON 68832 Monocytes (Bld) [#/Vol] 0.41 {x10E9/L} See Below [employer] Work Phone: Comment on above: Reference Range: 0.1 0 - 1.00 Ordering Provider: Milagro PADRON 70694 Monocytes/100 WBC (Bld) 7.0 % 2.0 - 10.0 [employer] Work Phone: Comment on above: Ordering Provider: Milagro PADRON 86424 Lipase, Serumon 09-07-2019 Lipase [Catalytic activity/Vol] 40 U/L 9 - 82 [employer] Work Phone: Comment on above: Venipuncture immedia tely after or during the administration of Metamizole may lead to falsely low results. Testing should be performed immediately prior to Metamizole dosing. A-nlksxy-y-benzoquinone imine (metabolite of Acetaminophen) will generate erroneously low results in samples for patients that have taken toxic doses of acetaminophen. Ordering Provider: Milagro PADRON 83850 Metabolic Panelon 09-07-2019 ALP [Catalytic activity/Vol] 55 U/L 33 - 110 [employer] Work Phone: Comment on above: Ordering Provider: Milagro PADRON 55126 Anion gap [Moles/Vol] 13 mmol/L 10 - 20 [facility] Work Phone: Comment on above: Ordering Provider: D AVID BAEHREN 09905 Bilirubin [Mass/Vol] 0.3 mg/dL 0.0 - 1.2 [facility] [address] Work Phone: Comment on above: Ordering Provider: D AVID BAEHREN 59049 Calcium [Mass/Vol] 9.7 mg/dL 8.6 - 10.3 [facility] [address] Work Phone: Comment on above: Ordering Provider: D AVID BAEHREN 90523 Chloride [Moles/Vol] 97 mmol/L below low threshold 98 - 107 [facility] [address] Work Phone: Comment on above: Ordering Provider: D AVID BAEHREN 60485 CO2 [Moles/Vol] 32 mmol/L 21 - 32 [facility] [address] Work Phone: Comment on above: Ordering Provider: D AVID BAEHREN 94763 Creatinine [Mass/Vol] 1.47 mg/dL above high threshold See Below [facility] [address] Work Phone: Comment on above: Reference Range: 0.5 0 - 1.05 Ordering Provider: D AVID BAEHREN 02188 Glucose [Mass/Vol] 94 mg/dL 74 - 99 [facility] [address] Work Phone: Comment on above: Ordering Provider: D AVID BAEHREN 24829 Potassium [Moles/Vol] 4.4 mmol/L 3.5 - 5.3 [facility] [address] Work Phone: Comment on above: Ordering Provider: D AVID BAEHREN 74277 Protein [Mass/Vol] 6.3 g/dL below low threshold 6.4 - 8.2 [facility] [address] Work Phone: Comment on above: Ordering Provider: D AVID BAEHREN 65958 Sodium [Moles/Vol] 138 mmol/L 136 - 145 [facility] [address] Work Phone: Comment on above: Ordering Provider: D AVID BAEHREN 04776 Urea nitrogen [Mass/Vol] 20 mg/dL 6 - 23 [facility] [address] Work Phone: Comment on above: Ordering Provider: Milagro PADRON 58293 Otheron 09-07-2019 Albumin BCP dye [Mass/Vol] 4.1 g/dL 3.4 - 5.0 [facility] [address] Work Phone: Comment on above: Ordering Provider: Milagro PADRON 77755 ALT With P-5'-P [Catalytic activity/Vol] 19 U/L 7 - 45 [facility] [address] Work Phone: Comment on above: Patients treated wit h Sulfasalazine may generate falsely decreased results for ALT. Ordering Provider: Milagro PADRON 58409 AST With P-5'-P [Catalytic activity/Vol] 21 U/L 9 - 39 [facility] [address] Work Phone: Comment on above: Ordering Provider: Milagro PADRON 46374 Segmented neutrophils/100 WBC (Bld) 65.0 % See Below [facility] [address] Work Phone: Comment on above: Reference Range: 40. 0 - 80.0 Percent differential counts (%) should be interpreted in the context of the absolute cell counts (cells/L). Ordering Provider: Milagro KELLYREN 24624 38 {mL/min/1.73m2} Abnormal >60 [facility] [address] Work Phone: Comment on above: Ordering Provider: Milagro KELLYREN 36041 46 {mL/min/1.73m2} Abnormal >60 [facility] [address] Work Phone: Comment on above: CALCULATIONS OF FRIEDA MATED GFR ARE PERFORMED USING THE MDRD STUDY EQUATION FOR THE IDMS-TRACEABLE CREATININE METHODS. CLIN CHEM 2007;53:766-72 Ordering Provider: Milagro PADRON 43235 NORMAL [facility] [address] Work Phone: Comment on above: Ordering Provider: Milagro PADRON 12208 3.90 {x10E9/L} See Below [employer] [facility] [employer] Work Phone: Comment on above: Reference Range: 1.2 0 - 7.70 Ordering Provider: Milagro PADRON 68594 3.84 {x10E9/L} See Below [facility] [employer] [facility] [address] [employer] Work Phone: Comment on above: Reference Range: 1.2 0 - 7.00 Ordering Provider: Milagro PADRON 11072 0.06 {x10E9/L} See Below [facility] [employer] [facility] [address] [employer] Work Phone: Comment on above: Reference Range: 0.0 0 - 0.70 Ordering Provider: Milagro PADRON 58457 Other 08-21-2019 XR Knee 4 views Interpreted by: TARUN JARA08/20/19 22:23MRN: [id number] Name: REEMA SHAH STUDY:KNEE; COMPLT, 4 OR MORE VIEWS;Left; 08/20/2019 10:00 pm INDICATION:fall. COMPARISON:None. ORDERING CLINICIAN:TENISHA LANE FINDINGS:Four views left knee. No acute fracture or malalignment. Bones appear normally mineralized.No significant degenerative changes. No knee effusion. Soft tissuesare within normal limits. IMPRESSION:Normal left knee radiography. Electronically signed by: HEIDY JARA 08/20/19 22:23 Normal [facility] [employer] Work Phone: Comment on above: Ordering Provider: Maria G [address] [address] [facility] 08-20-2019 CT Head limited WO contrast Interpreted by: HEIDY JARA08/20/19 22:22MRN: [id number] Name: REEMA SHAH STUDY:CT HEAD WO CONTRAST; CT C-SPINE WO CONTRAST;; 08/20/2019 9:58 pm INDICATION:fall. COMPARISON:03/18/[address] cervical spine from 03/16/2019. [id number] ORDERING CLINICIAN:TENISHA LANE TECHNIQUE:Noncontrast CT exams of the head and cervical spine with multiplanarreformations . FINDINGS:BRAIN PARENCHYMA: Hill-white matter interfaces are preserved. Nomass, mass effect [...] Electronically signed by: HEIDY JARA 08/20/19 22:22 Normal [facility] [employer] Work Phone: Comment on above: Ordering Provider: Maria G [address] [address] Interpreted by: TARUN JARA08/20/19 22:22MRN: [id number] Name: REEMA SHAH STUDY:CT HEAD WO CONTRAST; CT C-SPINE WO CONTRAST;; 08/20/2019 9:58 pm INDICATION:fall. COMPARISON:03/18/[address] cervical spine from 03/16/2019. [id number] ORDERING CLINICIAN:TENISHA LANE TECHNIQUE:Noncontrast CT exams of the head and cervical spine with multiplanarreformations . FINDINGS:BRAIN PARENCHYMA: Hill-white matter interfaces are preserved. Nomass, mass effect [...] Electronically signed by: HEIDY JARA 08/20/19 22:22 Normal [employer] [facility] [address] [employer] Work Phone: Comment on above: Ordering Provider: Maria G [address] [address] Otheron 08-03-2019 Interpreted by: STACY SANCHEZ 22:49MRN: [id number] Name: REEMA SHAH STUDY:US PELVIS TRANSABDOMINAL WITH TRANSVAGINAL; 08/03/2019 10:44 am INDICATION:PELVIC PAIN. COMPARISON:None. ORDERING CLINICIAN:ANEL VELASQUEZ TECHNIQUE:Transabdomina l and transvaginal grayscale, color and spectral Dopplerultrasound [...] uterinesegment. No acute pelvic pathology is otherwise demonstrated.Electronic ally signed by: TIFFANIE PARK 08/03/19 22:49 Normal [facility] [address] [employer] Work Phone: Chlamydia GC by PCRon 2018 Chlamydia by PCR. Not Detected Normal Not Detected [facility] Comment on above: Result Comment: Xper t CT/NG Assay performance has not been evaluated in patients less than 14 years of age. Performed By: #### 1 [id number] #### MARCUS RemHemo [address] [place] [address] Gonorrhoeae by PCR Not Detected Normal Not Detected [facility] Comment on above: Result Comment: Xper t CT/NG Assay performance has not been evaluated in patients less than 14 years of age. Performed By: #### 1 [id number] #### MARCUS RemHemo [facility] [place] [address] CT Abdomen/Pelvis w/ Contras ton 07-05-2019 CT Abdomen/Pelvis w/ Contrast Exam Date/Time: 07/05/2019 13:33 EDT Reason for Exam: ABDOMINAL PAIN AND TENDERNESS Report STUDY: CT Abdomen/Pelvis w/ Contrast; 07/05/2019 1:33 pm INDICATION: ABDOMINAL PAIN AND TENDERNESS. COMPARISON: 12/02/2018 ACCESSION NUMBER(S): [id number] ORDERING CLINICIAN: Jeanie Ayala TECHNIQUE: Contiguous axial images were obtained through the abdomen and pelvis following the intravenous administration of 115 cc of Omnipaque 350. Oral contrast was administered. Coronal and sagittal reconstructions were performed. FINDINGS: LOWER CHEST: Images through the lung bases demonstrate mild areas of atelectasis and/or scarring. Nodular density in the right middle lobe, image 2 of 58, unchanged, measuring 4 mm. ABDOMEN AND PELVIS: LIVER: Within normal limits. BILE DUCTS: Not abnormally dilated. GALLBLADDER: No calcified stones. No wall thickening. PANCREAS: Appears unremarkable. SPLEEN: Appears unremarkable. ADRENAL GLANDS: Appear unremarkable. KIDNEYS, URETERS, AND BLADDER: Exam Date/Time: 07/05/2019 13:33 EDT Report The kidneys enhance with contrast material symmetrically. There is no evidence of hydronephrosis. Subcentimeter hypoattenuating lesion noted within the inferior pole the right kidney, too small to characterize, statistically most likely a cyst. The urinary bladder appears grossly unremarkable. BOWEL: The small and large bowel are normal in caliber and demonstrate no wall thickening. There is no evidence of a bowel obstruction. Appendix is normal in caliber. Although CT has limited sensitivity and specificity for gastric pathology, the stomach appears grossly unremarkable. RETROPERITONEUM, VESSELS: There is no aneurysmal dilatation of the abdominal aorta. The IVC is within normal limits. No pathologically enlarged retroperitoneal lymph nodes are noted. PERITONEUM: There is no evidence of pneumoperitoneum. No ascites or loculated fluid collection noted. Uterus is normal in size. There is an IUD within the uterus which appears to be in a low-lying position, along the lower uterine segment and cervix. However, this is unchanged when compared to the previous study. There is a 2.8 cm left ovarian cyst/follicle. No pathologically enlarged mesenteric lymph nodes are identified. ABDOMINAL WALL, SOFT TISSUES: No acute process. SKELETON: Degenerative changes. No acute process. IMPRESSION: No CT evidence of an acute intra-abdominal or pelvic process. 2.8 cm cyst/follicle within the left ovary. Additional unchanged findings as above. FINAL REPORT Dictated: 07/05/2019 3:48 pm Andrey Sunshine MD Signed (Electronic Signature): 07/05/2019 3:48 pm Signed by: Andrey Sunshine MD Technologist: MM, Normal [facility] BMPon 03-25-2019 Anion gap [Moles/Vol] 10 mmol/L Normal 10-20 [facility] Comment on above: Performed By: #### 1 [id number] #### [facility] Rem[facility]emo [address] [place] [address] Calcium [Mass/Vol] 8.7 mg/dL Normal 8.6-10.[address] [facility] Comment on above: Performed By: #### 1 [id number] #### MARCUS RemHemo [address] [place] [address] Chloride [Moles/Vol] 108 mmol/L High 98-[address] [facility] Comment on above: Performed By: #### 1 [id number] #### MARCUS RemHemo [address] [place] [address] CO2 [Moles/Vol] 25.0 mmol/L Normal 21.0-32.0 [facility] Comment on above: Performed By: #### 1 [id number] #### MARCUS RemHemo [address] [place] [address] Creatinine [Mass/Vol] 1.2 mg/dL High 0.5-1.1 [facility] Comment on above: Performed By: #### 1 [id number] #### MARCUS Kenyono [facility] [place] [address] Glucose [Mass/Vol] 97 mg/dL Normal 70-[address] [facility] Comment on above: Performed By: #### 1 [id number] #### MARCUS Kenyono [address] [place] [address] Potassium [Moles/Vol] 4.5 mmol/L Normal 3.5-5.3 [facility] Comment on above: Performed By: #### 1 [id number] #### MARCUS Kenyono [address] [place] [address] Sodium [Moles/Vol] 138 mmol/L Normal 136-[address] [facility] Comment on above: Performed By: #### 1 [id number] #### MARCUS Kenyono [address] [place] [address] Urea nitrogen [Mass/Vol] 14 mg/dL Normal 6-23 [facility] Comment on above: Performed By: #### 1 [id number] #### MARCUS Kenyono [address] [place] [address] Urea nitrogen/Creatinine [Mass ratio] 11.7 ratio Normal 5.4-30.0 [facility] Comment on above: Performed By: #### 1 [id number] #### MARCUS Kenyono [address] [place] [address] Magnesiumon 03-25-2019 Magnesium [Mass/Vol] 2.0 mg/dL Normal 1.6-2.[address] [facility] Comment on above: Performed By: #### 1 [id number] #### MARCUS WilcoxHemo [facility] [place] [address] eGFRon 03-25-2019 GFR/1.73 sq M predicted among non-blacks MDRD (S/P/Bld) [Vol rate/Area] mL/min/{1.73_m2} Normal [facility] Comment on above: Order Comment: Order Added by Discern Expert. Performed By: #### 1 [id number] #### MARCUS WilcoxHemo [address] [place] [address] GFR/1.73 sq M predicted among non-blacks MDRD (S/P/Bld) [Vol rate/Area] 50 mL/min/1.73 m2 Normal [facility] Comment on above: Order Comment: Order Added by Discern Expert. Performed By: #### 1 [id number] #### MARCUS WilcoxHemo [address] [place] [address] Auto Diffon 03-24-2019 Basophils (Bld) [#/Vol] 0.0 E3/mcL Normal 0.0-0.2 [facility] Comment on above: Order Comment: Order Added by Katya Expert. Performed By: #### 1 [id number] #### MARCUS WilcoxHemo [address] [place] [address] Basophils/100 WBC (Bld) 0.1 % Normal 0.0-2.0 [facility] Comment on above: Order Comment: Order Added by Katya Expert. Performed By: #### 1 [id number] #### MARCUS WilcoxHemo [address] [place] [address] Eos Absolute 0.1 E3/mcL Normal 0.0-0.7 [facility] Comment on above: Order Comment: Order Added by Discern Expert. Performed By: #### 1 [id number] #### MARCUS WilcoxHemo [address] [place] [address] Eosinophils/100 WBC (Bld) 1.7 % Normal 0.0-11.0 [facility] Comment on above: Order Comment: Order Added by Discern Expert. Performed By: #### 1 [id number] #### MARCSU RemHemo [address] [place] [address] Lymphocytes (Bld) [#/Vol] 1.3 E3/mcL Normal 1.2-3.4 [facility] Comment on above: Order Comment: Order Added by Discern Expert. Performed By: #### 1 [id number] #### MARCUS RemHemo [address] [place] [address] Lymphocytes/100 WBC (Bld) 33.8 % Normal 20.0-55.0 [facility] Comment on above: Order Comment: Order Added by Discern Expert. Performed By: #### 1 [id number] #### MARCUS RemHemo [address] [place] [address] [place] Absolute 0.4 E3/mcL Normal 0.0-0.7 [facility] Comment on above: Order Comment: Order Added by Discern Expert. Performed By: #### 1 [id number] #### MARCUS WilcoxHemo [address] [place] [address] Monocytes/100 WBC (Bld) 11.3 % High 0.0-10.0 [facility] Comment on above: Order Comment: Order Added by Discern Expert. Performed By: #### 1 [id number] #### MARCUS RemHemo [address] [place] [address] Neutro Absolute 2.1 E3/mcL Normal 1.4-6.5 [facility] Comment on above: Order Comment: Order Added by Discern Expert. Performed By: #### 1 [id number] #### MARCUS RemHemo [address] [place] [address] Neutro Auto 53.1 % Normal 37.0-75.0 [facility] Comment on above: Order Comment: Order Added by Discern Expert. Performed By: #### 1 [id number] #### MARCUS RemHemo [address] [place] [address] BMPon 03-24-2019 Anion gap [Moles/Vol] 9 mmol/L Low 10-20 [facility] Comment on above: Performed By: #### 1 [id number] #### MARCUS RemHemo [address] [place] [address] Calcium [Mass/Vol] 8.2 mg/dL Low 8.6-10.[address] [facility] Comment on above: Performed By: #### 1 [id number] #### MARCUS RemHemo [address] [place] [address] Chloride [Moles/Vol] 110 mmol/L High 98-[address] [facility] Comment on above: Performed By: #### 1 [id number] #### MARCUS RemHemo [address] [place] [address] CO2 [Moles/Vol] 23.0 mmol/L Normal 21.0-32.0 [facility] Comment on above: Performed By: #### 1 [id number] #### MARCUS RemHemo [address] [place] [address] Creatinine [Mass/Vol] 1.1 mg/dL Normal 0.5-1.1 [facility] Comment on above: Performed By: #### 1 [id number] #### MARCUS RemHemo [address] [place] [address] Glucose [Mass/Vol] 92 mg/dL Normal 70-[address] [facility] Comment on above: Performed By: #### 1 [id number] #### MARCUS RemHemo [address] [place] [address] Potassium [Moles/Vol] 4.1 mmol/L Normal 3.5-5.3 [facility] Comment on above: Performed By: #### 1 [id number] #### MARCUS RemHemo [address] [place] [address] Sodium [Moles/Vol] 138 mmol/L Normal 136-[address] [facility] Comment on above: Performed By: #### 1 [id number] #### MARCUS RemHemo [address] [place] [address] Urea nitrogen [Mass/Vol] 11 mg/dL Normal 6-23 [facility] Comment on above: Performed By: #### 1 [id number] #### MARCUS RemHemo [address] [place] [address] Urea nitrogen/Creatinine [Mass ratio] 10.0 ratio Normal 5.4-30.0 [facility] Comment on above: Performed By: #### 1 [id number] #### MARCUS RemHemo [address] [place] [address] CBC w/ Auto Diffon 9 Erythrocyte distribution width (RBC) [Ratio] 13.4 % Normal 11.5-14.5 [facility] Comment on above: Performed By: #### 1 [id number] #### MARCUS RemHemo [address] [place] [address] Hematocrit (Bld) [Volume fraction] 36.3 % Normal 36.0-48.0 [facility] Comment on above: Performed By: #### 1 [id number] #### MARCUS RemHemo [address] [place] [address] Hemoglobin (Bld) [Mass/Vol] 12.3 g/dL Normal 12.0-16.0 [facility] Comment on above: Performed By: #### 1 [id number] #### MARCUS RemHemo [address] [place] [address] MCH (RBC) [Entitic mass] 30.4 pg Normal 27.0-31.0 [facility] Comment on above: Performed By: #### 1 [id number] #### MARCUS RemHemo [address] [place] [address] MCHC (RBC) [Mass/Vol] 33.7 g/dL Normal 33.0-37.0 [facility] Comment on above: Performed By: #### 1 [id number] #### MARCUS RemHemo [address] [place] [address] MCV (RBC) [Entitic vol] 90.1 fL Normal 78.0-100.0 [facility] Comment on above: Performed By: #### 1 [id number] #### MARCUS RemHemo [address] [place] [address] Platelet mean volume (Bld) [Entitic vol] 8.3 fL Normal 7.4-11.0 [facility] Comment on above: Performed By: #### 1 [id number] #### MARCUS RemHemo [address] [place] [address] Platelets (Bld) [#/Vol] 101 E3/mcL Low 130-400 [facility] Comment on above: Performed By: #### 1 [id number] #### MARCUS RemHemo [facility] [place] [address] RBC (Bld) [#/Vol] 4.04 E6/mcL Normal 3.90-5.[address] [facility] Comment on above: Performed By: #### 1 [id number] #### MARCUS RemHemo [address] [place] [address] WBC (Bld) [#/Vol] 3.9 E3/mcL Normal 3.6-11.0 [facility] Comment on above: Performed By: #### 1 [id number] #### MARCUS RemHemo [address] [place] [address] Magnesiumon 03-24-2019 Magnesium [Mass/Vol] 2.1 mg/dL Normal 1.6-2.[address] [facility] Comment on above: Performed By: #### 1 [id number] #### MARCUS WilcoxHemo [address] [place] [address] eGFRon 03-24-2019 GFR/1.73 sq M predicted among non-blacks MDRD (S/P/Bld) [Vol rate/Area] 55 mL/min/1.73 m2 Normal [facility] Comment on above: Order Comment: Order Added by Discern Expert. Performed By: #### 1 [id number] #### [place] [address] GFR/1.73 sq M predicted among non-blacks MDRD (S/P/Bld) [Vol rate/Area] mL/min/{1.73_m2} Normal [facility] Comment on above: Order Comment: Order Added by Discern Expert. Performed By: #### 1 [id number] #### MARCUS WilcoxHemo [address] [place] [address] .Manual Abson 03-23-2019 Basophil Abs Man 0.0 10x3/ Normal 0.0-0.2 [facility] Comment on above: Order Comment: Order Added by Katya Expert. Performed By: #### 1 [id number] #### MARCUSShawn WilcoxHemo [address] [place] [address] Eos Abs Man 0.0 10x3/ Normal 0.0-0.5 [facility] Comment on above: Order Comment: Order Added by Katya Expert. Performed By: #### 1 [id number] #### MARCUSShawn WilcoxHemo [address] [place] [address] Lymph Abs Man 1.6 10x3/ Normal 1.2-3.4 [facility] Comment on above: Order Comment: Order Added by Katya Expert. Performed By: #### 1 [id number] #### MARCUSShawn WilcoxHemo [address] [place] [address] [place] Abs Man 0.1 10x3/ Normal 0.0-0.7 [facility] Comment on above: Order Comment: Order Added by Discern Expert. Performed By: #### 1 [id number] #### MARCUS RemHemo [address] [place] [address] Segs Abs Man 1.3 10x3/ Low 1.4-6.5 [facility] Comment on above: Order Comment: Order Added by Discern Expert. Performed By: #### 1 [id number] #### MARCUS WilcoxHemo [address] [place] [address] BMPon 03-23-2019 Anion gap [Moles/Vol] 8 mmol/L Low 10-20 [facility] Comment on above: Performed By: #### 1 [id number] #### MARCUS RemHemo [address] [place] [address] Calcium [Mass/Vol] 7.8 mg/dL Low 8.6-10.[address] [facility] Comment on above: Performed By: #### 1 [id number] #### MARCUS RemHemo [address] [place] [address] Chloride [Moles/Vol] 111 mmol/L High 98-[address] [facility] Comment on above: Performed By: #### 1 [id number] #### MARCUS RemHemo [address] [place] [address] CO2 [Moles/Vol] 22.0 mmol/L Normal 21.0-32.0 [facility] Comment on above: Performed By: #### 1 [id number] #### MARCUS RemHemo [address] [place] [address] Creatinine [Mass/Vol] 1.1 mg/dL Normal 0.5-1.1 [facility] Comment on above: Performed By: #### 1 [id number] #### MARCUS RemHemo [address] [place] [address] Glucose [Mass/Vol] 102 mg/dL High 70-[address] [facility] Comment on above: Performed By: #### 1 [id number] #### MARCUS RemHemo [address] [place] [address] Potassium [Moles/Vol] 3.5 mmol/L Normal 3.5-5.3 [facility] Comment on above: Performed By: #### 1 [id number] #### MARCUS RemHemo [address] [place] [address] Sodium [Moles/Vol] 138 mmol/L Normal 136-[address] [facility] Comment on above: Performed By: #### 1 [id number] #### MARCUS RemHemo [address] [place] [address] Urea nitrogen [Mass/Vol] 9 mg/dL Normal 6-23 [facility] Comment on above: Performed By: #### 1 [id number] #### MARCUS RemHemo [address] [place] [address] Urea nitrogen/Creatinine [Mass ratio] 8.2 ratio Normal 5.4-30.0 [facility] Comment on above: Performed By: #### 1 [id number] #### MARCUS WilcoxHemo [facility] [place] [address] CBC w/ Auto Diffon 9 Erythrocyte distribution width (RBC) [Ratio] 13.6 % Normal 11.5-14.5 [facility] Comment on above: Performed By: #### 1 [id number] #### MARCUS WilcoxHemo [address] [place] [address] Hematocrit (Bld) [Volume fraction] 36.9 % Normal 36.0-48.0 [facility] Comment on above: Performed By: #### 1 [id number] #### MARCUS WilcoxHemo [address] [place] [address] Hemoglobin (Bld) [Mass/Vol] 12.2 g/dL Normal 12.0-16.0 [facility] Comment on above: Performed By: #### 1 [id number] #### MARCUS RemHemo [address] [place] [address] MCH (RBC) [Entitic mass] 30.1 pg Normal 27.0-31.0 [facility] Comment on above: Performed By: #### 1 [id number] #### MARCUS RemHemo [address] [place] [address] MCHC (RBC) [Mass/Vol] 33.1 g/dL Normal 33.0-37.0 [facility] Comment on above: Performed By: #### 1 [id number] #### MARCUS WilcoxHemo [address] [place] [address] MCV (RBC) [Entitic vol] 91.0 fL Normal 78.0-100.0 [facility] Comment on above: Performed By: #### 1 [id number] #### MARCUS WilcoxHemo [address] [place] [address] Platelet mean volume (Bld) [Entitic vol] 8.3 fL Normal 7.4-11.0 [facility] Comment on above: Performed By: #### 1 [id number] #### MARCUS RemHemo [address] [place] [address] Platelets (Bld) [#/Vol] 97 E3/mcL Low 130-400 [facility] Comment on above: Performed By: #### 1 [id number] #### MARCUS WilcoxHemo [address] [place] [address] RBC (Bld) [#/Vol] 4.05 E6/mcL Normal 3.90-5.[address] [facility] Comment on above: Performed By: #### 1 [id number] #### MARCUS WilcoxHemo [address] [place] [address] WBC (Bld) [#/Vol] 3.0 E3/mcL Low 3.6-11.0 [facility] Comment on above: Performed By: #### 1 [id number] #### MARCUS WilcoxHemo [address] [place] [address] Magnesiumon 03-23-2019 Magnesium [Mass/Vol] 2.9 mg/dL High 1.6-2.[address] [facility] Comment on above: Performed By: #### 1 [id number] #### MARCUS WilcoxHemo [address] [place] [address] Manual Diffon 03-23-2019 Anisocytosis Ql (Bld) 1+ Normal [facility] Comment on above: Order Comment: Order Added by Discern Expert. Performed By: #### 1 [id number] #### MARCUS WilcoxHemo [facility] [place] [address] Basophil Man 0 % Normal 0-1 [facility] Comment on above: Order Comment: Order Added by Discern Expert. Performed By: #### 1 [id number] #### MARCUS RemHemo [address] [place] [address] Eosinophils/100 WBC (Bld) 0 % Normal 0-5 [facility] Comment on above: Order Comment: Order Added by Discern Expert. Performed By: #### 1 [id number] #### MARCUS RemHemo [address] [place] [address] Lymphocytes/100 WBC (Bld) 54 % High 14-48 [facility] Comment on above: Order Comment: Order Added by Discern Expert. Performed By: #### 1 [id number] #### MARCUS RemHemo [address] [place] [address] Monocyte Man 4 % Normal 1-11 [facility] Comment on above: Order Comment: Order Added by Discern Expert. Performed By: #### 1 [id number] #### MARCUS RemHemo [address] [place] [address] RBC morphology finding Nom (Bld) SEE MORPHOLOGY Normal [facility] Comment on above: Order Comment: Order Added by Discern Expert. Performed By: #### 1 [id number] #### MARCUS RemHemo [address] [place] [address] Segs Man 42 % Normal 37-75 [facility] Comment on above: Order Comment: Order Added by Discern Expert. Performed By: #### 1 [id number] #### MARCUS RemHemo [address] [place] [address] TSHon 03-23-2019 TSH Qn 2.75 mcIU/mL Normal 0.30-5.60 [facility] Comment on above: Performed By: #### 1 [id number] #### MARCUS RemHemo [address] [place] [address] Troponin-Ion 03-23-2019 Troponin I.cardiac [Mass/Vol] 0.01 ng/mL Normal 0.00-0.03 [facility] Comment on above: Order Comment: Order Added by Discern Expert. Performed By: #### 1 [id number] #### MARCUS RemHemo [address] [place] [address] XR Shoulder Complete Lefton 03-23-2019 XR Shoulder Complete Left Exam Date/Time: 03/23/2019 01:05 EDT Reason for Exam: Fall Report STUDY: XR Shoulder Complete Left;; 03/23/2019 1:05 am INDICATION: Fall. COMPARISON: None. ACCESSION NUMBER(S): [id number] ORDERING CLINICIAN: Narcisa Lo FINDINGS: Five views of the left shoulder. Normal bone mineralization. No visible acute fractures or dislocations. The joint spaces are maintained. No periosteal reaction or cortical erosive changes. The soft tissues appear unremarkable. IMPRESSION: No visible acute fractures or dislocations. FINAL REPORT Dictated: 03/23/2019 9:52 am Lisa Rushing MD Signed (Electronic Signature): 03/23/2019 9:52 am Signed by: Lisa Rushing MD Technologist: [facility] eGFRon 03-23-2019 GFR/1.73 sq M predicted among non-blacks MDRD (S/P/Bld) [Vol rate/Area] mL/min/{1.73_m2} Normal [facility] Comment on above: Order Comment: Order Added by Discern Expert. Performed By: #### 1 [id number] #### MARCUS RemHemo [facility] [place] [address] GFR/1.73 sq M predicted among non-blacks MDRD (S/P/Bld) [Vol rate/Area] 56 mL/min/1.73 m2 Normal [facility] Comment on above: Order Comment: Order Added by Discern Expert. Performed By: #### 1 [id number] #### MARCUS RemHemo [address] [place] [address] zzplt morphon 03-23-2019 Platelet morphology finding Nom (Bld) NORMAL Normal [facility] Comment on above: Performed By: #### 1 [id number] #### MARCUS RemHemo [address] [place] [address] Platelets (Bld) [#/Vol] DECREASED Normal [facility] Comment on above: Performed By: #### 1 [id number] #### MARCUS RemHemo [address] [place] [address] Auto Diffon 03-22-2019 Basophils (Bld) [#/Vol] 0.0 E3/mcL Normal 0.0-0.2 [facility] Comment on above: Order Comment: Order Added by Discern Expert. Performed By: #### 1 [id number] #### MARCUS RemHemo [address] [place] [address] Basophils/100 WBC (Bld) 0.4 % Normal 0.0-2.0 [facility] Comment on above: Order Comment: Order Added by Discern Expert. Performed By: #### 1 [id number] #### MARCUS RemHemo [address] [place] [address] Eos Absolute 0.1 E3/mcL Normal 0.0-0.7 [facility] Comment on above: Order Comment: Order Added by Discern Expert. Performed By: #### 1 [id number] #### MARCUS RemHemo [address] [place] [address] Eosinophils/100 WBC (Bld) 2.0 % Normal 0.0-11.0 [facility] Comment on above: Order Comment: Order Added by Discern Expert. Performed By: #### 1 [id number] #### MARCUS RemHemo [address] [place] [address] Lymphocytes (Bld) [#/Vol] 1.1 E3/mcL Low 1.2-3.4 [facility] Comment on above: Order Comment: Order Added by Discern Expert. Performed By: #### 1 [id number] #### MARCUS WilcoxHemo [address] [place] [address] Lymphocytes/100 WBC (Bld) 27.1 % Normal 20.0-55.0 [facility] Comment on above: Order Comment: Order Added by Discern Expert. Performed By: #### 1 [id number] #### MARCUS RemHemo [address] [place] [address] [place] Absolute 0.5 E3/mcL Normal 0.0-0.7 [facility] Comment on above: Order Comment: Order Added by Discern Expert. Performed By: #### 1 [id number] #### MARCUS RemHemo [address] [place] [address] Monocytes/100 WBC (Bld) 11.0 % High 0.0-10.0 [facility] Comment on above: Order Comment: Order Added by Discern Expert. Performed By: #### 1 [id number] #### MARCUS RemHemo [address] [place] [address] Neutro Absolute 2.5 E3/mcL Normal 1.4-6.5 [facility] Comment on above: Order Comment: Order Added by Discern Expert. Performed By: #### 1 [id number] #### MARCUS RemHemo [address] [place] [address] Neutro Auto 59.5 % Normal 37.0-75.0 [facility] Comment on above: Order Comment: Order Added by Discern Expert. Performed By: #### 1 [id number] #### MARCUS RemHemo [address] [place] [address] BMPon 03-22-2019 Anion gap [Moles/Vol] 13 mmol/L Normal 10-20 [facility] Comment on above: Performed By: #### 1 [id number] #### MARCUS RemHemo [address] [place] [address] Calcium [Mass/Vol] 8.4 mg/dL Low 8.6-10.[address] [facility] Comment on above: Performed By: #### 1 [id number] #### MARCUS RemHemo [address] [place] [address] Chloride [Moles/Vol] 110 mmol/L High 98-[address] [facility] Comment on above: Performed By: #### 1 [id number] #### MARCUS RemHemo [address] [place] [address] CO2 [Moles/Vol] 21.0 mmol/L Normal 21.0-32.0 [facility] Comment on above: Performed By: #### 1 [id number] #### MARCUS RemHemo [address] [place] [address] Creatinine [Mass/Vol] 1.1 mg/dL Normal 0.5-1.1 [facility] Comment on above: Performed By: #### 1 [id number] #### MARCUS RemHemo [address] [place] [address] Glucose [Mass/Vol] 95 mg/dL Normal 70-[address] [facility] Comment on above: Performed By: #### 1 [id number] #### MARCUS RemHemo [address] [place] [address] Potassium [Moles/Vol] 4.0 mmol/L Normal 3.5-5.3 [facility] Comment on above: Performed By: #### 1 [id number] #### MARCUS Kenyono [facility] [place] [address] Sodium [Moles/Vol] 139 mmol/L Normal 136-[address] [facility] Comment on above: Performed By: #### 1 [id number] #### MARCUS Kenyono [address] [place] [address] Urea nitrogen [Mass/Vol] 10 mg/dL Normal 6-23 [facility] Comment on above: Performed By: #### 1 [id number] #### MARCUS Kenyono [address] [place] [address] Urea nitrogen/Creatinine [Mass ratio] 9.1 ratio Normal 5.4-30.0 [facility] Comment on above: Performed By: #### 1 [id number] #### MARCUSShawn Kenyon[address] [address] CBC w/ Auto Diffon 9 Erythrocyte distribution width (RBC) [Ratio] 13.5 % Normal 11.5-14.5 [facility] Comment on above: Performed By: #### 1 [id number] #### MARCUS Kenyono [address] [place] [address] Hematocrit (Bld) [Volume fraction] 37.5 % Normal 36.0-48.0 [facility] Comment on above: Performed By: #### 1 [id number] #### MARCUS Kenyono [address] [place] [address] Hemoglobin (Bld) [Mass/Vol] 12.8 g/dL Normal 12.0-16.0 [facility] Comment on above: Performed By: #### 1 [id number] #### MARCUSShawn Kenyono [address] [place] [address] MCH (RBC) [Entitic mass] 30.9 pg Normal 27.0-31.0 [facility] Comment on above: Performed By: #### 1 [id number] #### MARCUSShawn WilcoxHemo [address] [place] [address] MCHC (RBC) [Mass/Vol] 34.1 g/dL Normal 33.0-37.0 [facility] Comment on above: Performed By: #### 1 [id number] #### MARCUS WilcoxHemo [facility] [place] [address] MCV (RBC) [Entitic vol] 90.6 fL Normal 78.0-100.0 [facility] Comment on above: Performed By: #### 1 [id number] #### MARCUS JeriHemo [facility] [place] [address] Platelet mean volume (Bld) [Entitic vol] 8.3 fL Normal 7.4-11.0 [facility] Comment on above: Performed By: #### 1 [id number] #### MARCUSShawn WilcoxHemo [facility] [place] [address] Platelets (Bld) [#/Vol] 113 E3/mcL Low 130-400 [facility] Comment on above: Performed By: #### 1 [id number] #### MARCUSShawn WilcoxHemo [address] [place] [address] RBC (Bld) [#/Vol] 4.14 E6/mcL Normal 3.90-5.[address] [facility] Comment on above: Performed By: #### 1 [id number] #### MARCUS WilcoxHemo [facility] [place] [address] WBC (Bld) [#/Vol] 4.1 E3/mcL Normal 3.6-11.0 [facility] Comment on above: Performed By: #### 1 [id number] #### MARCUS JeriHemo [facility] [place] [address] Magnesiumon 03-22-2019 Magnesium [Mass/Vol] 1.6 mg/dL Normal 1.6-2.[address] [facility] Comment on above: Performed By: #### 1 [id number] #### MARCUSShawn WilcoxHemo [facility] [place] [address] Troponin-Ion 03-22-2019 Troponin I.cardiac [Mass/Vol] 0.01 ng/mL Normal 0.00-0.03 [facility] Comment on above: Performed By: #### 1 [id number] #### MARCUS WilcoxHemo [address] [place] [address] XR Chest AP Portableon 03-22 XR Chest AP Portable Exam Date/Time: 03/22/2019 20:26 EDT Reason for Exam: Chest pain Report STUDY: XR Chest AP Portable; 03/22/2019 8:26 pm INDICATION: Chest pain. COMPARISON: 12/21/2018 ACCESSION NUMBER(S): [id number] ORDERING CLINICIAN: Xuan Garcia FINDINGS: Single portable AP view of the chest. There is no new focal consolidation, pleural effusion, or pneumothorax. The cardiomediastinal silhouette is stable in size and morphology. No acute osseous abnormality. Radiopaque ring projected over the level of the gastroesophageal junction is again present. IMPRESSION: 1. No evidence of acute cardiopulmonary process. FINAL REPORT Dictated: 03/22/2019 8:37 pm Lacy Alvarez MD Signed (Electronic Signature): 03/22/2019 8:37 pm Signed by: Lacy Alvarez MD Technologist: [facility] Normal [facility] eGFRon 03-22-2019 GFR/1.73 sq M predicted among non-blacks MDRD (S/P/Bld) [Vol rate/Area] mL/min/{1.73_m2} Normal [facility] Comment on above: Order Comment: Order Added by Discern Expert. Performed By: #### 1 [id number] #### MARCUS WilcoxHemo [address] [place] [address] GFR/1.73 sq M predicted among non-blacks MDRD (S/P/Bld) [Vol rate/Area] 52 mL/min/1.73 m2 [facility] Comment on above: Order Comment: Order Added by Discern Expert. Performed By: #### 1 [id number] #### MARCUS RemHemo [address] [place] [address] UA Completeon 03-19-2019 Color (U) Yellow Normal Yellow [facility] Comment on above: Order Comment: Order Added by Discern Expert. Performed By: #### 1 [id number] #### MARCUS RemHemo [address] [place] [address] Glucose (U) [Mass/Vol] Negative Normal Negative [facility] Comment on above: Order Comment: Order Added by Discern Expert. Performed By: #### 1 [id number] #### MARCUS RemHemo [address] [place] [address] Ketones Ql (U) Negative Normal Negative [facility] Comment on above: Order Comment: Order Added by Discern Expert. Performed By: #### 1 [id number] #### MARCUS RemHemo [address] [place] [address] RBC (U) [#/Vol] 0-3 Normal 0-3 [facility] Comment on above: Order Comment: Order Added by Discern Expert. Performed By: #### 1 [id number] #### MARCUS RemHemo [address] [place] [address] UA Blood Negative Normal Negative [facility] Comment on above: Order Comment: Order Added by Discern Expert. Performed By: #### 1 [id number] #### MARCUS RemHemo [address] [place] [address] UA Clarity SltCloudy Abnormal Clear [facility] Comment on above: Order Comment: Order Added by Discern Expert. Performed By: #### 1 [id number] #### MARCUS RemHemo [address] [place] [address] UA Hyal Cast 3-5 Abnormal 0-2 [facility] Comment on above: Order Comment: Order Added by Discern Expert. Performed By: #### 1 [id number] #### MARCUS RemHemo [address] [place] [address] UA Leuk Est 1+ Abnormal Negative [facility] Comment on above: Order Comment: Order Added by Discern Expert. Performed By: #### 1 [id number] #### MARUCS RemHemo [address] [place] [address] UA Mucous Trace Abnormal Trace [facility] Comment on above: Order Comment: Order Added by Discern Expert. Performed By: #### 1 [id number] #### MARCUS RemHemo [address] [place] [address] UA Nitrite Negative Normal Negative [facility] Comment on above: Order Comment: Order Added by Discern Expert. Performed By: #### 1 [id number] #### MARCUS RemHemo [address] [place] [address] UA pH 5.0 Normal 4.6-8.0 [facility] Comment on above: Order Comment: Order Added by Discern Expert. Performed By: #### 1 [id number] #### MARCUS Kenyono [facility] [place] [id number] UA Protein Negative Normal Negative [facility] Comment on above: Order Comment: Order Added by Discern Expert. Performed By: #### 1 [id number] #### MARCUS WilcoxHemo [address] [place] [address] UA Spec Grav 1.010 Normal 1.003-1.030 [facility] Comment on above: Order Comment: Order Added by Discern Expert. Performed By: #### 1 [id number] #### MARCUS Kenyono [address] [place] [address] UA Squam Epithelial 10-20 Abnormal 0-5 [facility] Comment on above: Order Comment: Order Added by Discern Expert. Performed By: #### 1 [id number] #### MARCUS WilcoxHemo [address] [place] [address] UA Urobilinogen Negative Normal [facility] Comment on above: Order Comment: Order Added by Discern Expert. Result Comment: Due to a manufacturing issue, low positive urobilinogen results may be fasely positive. Correlate with urine bilirubin and additional clinical/laboratory findings to assess the risk of hemolytic anemia or liver disease. If clinically indicated, repeat testing with an alternate method is available by contacting the laboratory within 24 hours. Performed By: #### 1 [id number] #### MARCUS WilcoxHemo [address] [place], [place] [id number] UA WBC 0-5 Normal 0-5 [facility] Comment on above: Order Comment: Order Added by Katya Expert. Performed By: #### 1 [id number] #### MARCUS Kenyono [facility] [place] [id number] Urobilinogen Qn (U) Negative Normal Negative [facility] Comment on above: Order Comment: Order Added by Katya Expert. Performed By: #### 1 [id number] #### MARCUS WilcoxHemo [facility] [place] [address] Auto Diffon 06-01-2019 Basophils (Bld) [#/Vol] 0.0 E3/mcL Normal 0.0-0.2 [facility] Comment on above: Order Comment: Order Added by Discern Expert. Performed By: #### 1 [id number] #### MARCUS RemHemo [address] [place] [address] Basophils/100 WBC (Bld) 0.5 % Normal 0.0-2.0 [facility] Comment on above: Order Comment: Order Added by Discern Expert. Performed By: #### 1 [id number] #### MARCUS RemHemo [address] [place] [address] Eos Absolute 0.1 E3/mcL Normal 0.0-0.7 [facility] Comment on above: Order Comment: Order Added by Discern Expert. Performed By: #### 1 [id number] #### MARCUS RemHemo [address] [place] [address] Eosinophils/100 WBC (Bld) 2.2 % Normal 0.0-11.0 [facility] Comment on above: Order Comment: Order Added by Discern Expert. Performed By: #### 1 [id number] #### MARCUS RemHemo [address] [place] [address] Lymphocytes (Bld) [#/Vol] 1.3 E3/mcL Normal 1.2-3.4 [facility] Comment on above: Order Comment: Order Added by Katya Expert. Performed By: #### 1 [id number] #### MARCUS RemHemo [address] [place] [address] Lymphocytes/100 WBC (Bld) 30.1 % Normal 20.0-55.0 [facility] Comment on above: Order Comment: Order Added by Katya Expert. Performed By: #### 1 [id number] #### MARCUS RemHemo [address] [place] [address] [place] Absolute 0.4 E3/mcL Normal 0.0-0.7 [facility] Comment on above: Order Comment: Order Added by Katya Expert. Performed By: #### 1 [id number] #### MARCUS RemHemo [address] [place] [address] Monocytes/100 WBC (Bld) 9.9 % Normal 0.0-10.0 [facility] Comment on above: Order Comment: Order Added by Discern Expert. Performed By: #### 1 [id number] #### MARCUS WilcoxHemo [address] [place] [address] Neutro Absolute 2.5 E3/mcL Normal 1.4-6.5 [facility] Comment on above: Order Comment: Order Added by Discern Expert. Performed By: #### 1 [id number] #### MARCUS WilcoxHemo [address] [place] [address] Neutro Auto 57.3 % Normal 37.0-75.0 [facility] Comment on above: Order Comment: Order Added by Discern Expert. Performed By: #### 1 [id number] #### MARCUS WilcoxHemo [address] [place] [address] BMPon 03-18-2019 Anion gap [Moles/Vol] 11 mmol/L Normal 10-20 [facility] Comment on above: Performed By: #### 1 [id number] #### MARCUS WilcoxHemo [address] [place] [address] Calcium [Mass/Vol] 8.8 mg/dL Normal 8.6-10.[address] [facility] Comment on above: Performed By: #### 1 [id number] #### MARCUS WilcoxHemo [address] [place] [address] Chloride [Moles/Vol] 110 mmol/L High 98-[address] [facility] Comment on above: Performed By: #### 1 [id number] #### MARCUS RemHemo [address] [place] [address] CO2 [Moles/Vol] 20.0 mmol/L Low 21.0-32.0 [facility] Comment on above: Performed By: #### 1 [id number] #### MARCUS RemHemo [address] [place] [address] Creatinine [Mass/Vol] 1.2 mg/dL High 0.5-1.1 [facility] Comment on above: Performed By: #### 1 [id number] #### MARCUS RemHemo [address] [place] [address] Glucose [Mass/Vol] 90 mg/dL Normal 70-[address] [facility] Comment on above: Performed By: #### 1 [id number] #### MARCUS RemHemo [address] [place] [address] Potassium [Moles/Vol] 4.0 mmol/L Normal 3.5-5.3 [facility] Comment on above: Performed By: #### 1 [id number] #### MARCUS RemHemo [address] [place] [address] Sodium [Moles/Vol] 137 mmol/L Normal 136-[address] [facility] Comment on above: Performed By: #### 1 [id number] #### MARCUS RemHemo [address] [place] [address] Urea nitrogen [Mass/Vol] 9 mg/dL Normal 6-23 [facility] Comment on above: Performed By: #### 1 [id number] #### MARCUS RemHemo [address] [place] [address] Urea nitrogen/Creatinine [Mass ratio] 7.5 ratio Normal 5.4-30.0 [facility] Comment on above: Performed By: #### 1 [id number] #### MARCUS RemHemo [address] [place] [address] CBC w/ Auto Diffon 9 Erythrocyte distribution width (RBC) [Ratio] 14.1 % Normal 11.5-14.5 [facility] Comment on above: Performed By: #### 1 [id number] #### MARCUS RemHemo [address] [place] [address] Hematocrit (Bld) [Volume fraction] 40.4 % Normal 36.0-48.0 [facility] Comment on above: Performed By: #### 1 [id number] #### MARCUS RemHemo [address] [place] [address] Hemoglobin (Bld) [Mass/Vol] 13.4 g/dL Normal 12.0-16.0 [facility] Comment on above: Performed By: #### 1 [id number] #### MARCUS RemHemo [address] [place] [address] MCH (RBC) [Entitic mass] 30.2 pg Normal 27.0-31.0 [facility] Comment on above: Performed By: #### 1 [id number] #### MARCUS RemHemo [address] [place] [address] MCHC (RBC) [Mass/Vol] 33.1 g/dL Normal 33.0-37.0 [facility] Comment on above: Performed By: #### 1 [id number] #### MARCUS RemHemo [address] [place] [address] MCV (RBC) [Entitic vol] 91.3 fL Normal 78.0-100.0 [facility] Comment on above: Performed By: #### 1 [id number] #### MARCUS RemHemo [address] [place] [address] Platelet mean volume (Bld) [Entitic vol] 8.0 fL Normal 7.4-11.0 [facility] Comment on above: Performed By: #### 1 [id number] #### MARCUS RemHemo [address] [place] [address] Platelets (Bld) [#/Vol] 123 E3/mcL Low 130-400 [facility] Comment on above: Performed By: #### 1 [id number] #### MARCUS RemHemo [address] [place] [address] RBC (Bld) [#/Vol] 4.43 E6/mcL Normal 3.90-5.[address] [facility] Comment on above: Performed By: #### 1 [id number] #### MARCUS RemHemo [address] [place] [address] WBC (Bld) [#/Vol] 4.3 E3/mcL Normal 3.6-11.0 [facility] Comment on above: Performed By: #### 1 [id number] #### MARCUS RemHemo [address] [place] [address] CT Head or Brain w/o Contras ton 03-18-2019 CT Head or Brain w/o Contrast Exam Date/Time: 03/18/2019 21:34 EDT Reason for Exam: Altered mental status Report STUDY: CT Head or Brain w/o Contrast; 03/18/2019 9:34 pm INDICATION: Altered mental status. COMPARISON: 03/16/2019 ACCESSION NUMBER(S): [id number] ORDERING CLINICIAN: Ac Gao TECHNIQUE: Noncontrast CT images of head. FINDINGS: No significant interval change. BRAIN PARENCHYMA: Hill-white matter interfaces are preserved. No mass, mass effect or midline shift. Subtle nonspecific white matter hypoattenuation likely represents chronic small vessel ischemic disease. HEMORRHAGE: No acute intracranial hemorrhage. VENTRICLES and EXTRA-AXIAL SPACES: Normal size. EXTRACRANIAL SOFT TISSUES: Within normal limits. PARANASAL SINUSES/MASTOIDS: Within normal limits. CALVARIUM: No depressed acute skull fracture. IMPRESSION: No acute infarct or hemorrhage. MRI is more sensitive for the evaluation. Given the recent negative head CT, MRI is recommended for further evaluation. FINAL REPORT Dictated: 03/18/2019 9:44 pm Nicole Anderson MD Signed (Electronic Signature): 03/18/2019 9:44 pm Signed by: Nicole Anderson MD Technologist: AM [facility] Ionized Calcium Lvlon 2018 Ionized Ca. 4.5 mg/dL Normal 4.5-5.6 [facility] Comment on above: Performed By: #### 1 [id number] #### MARCUS RemHemo [address] [place] [address] Ionized Calcium POC Orderon 03-18-2019 Ionized Calcium POC Order Collected [facility] Comment on above: Performed By: #### 1 [id number] #### MARCUS RemHemo [address] [place] [id number] eGFRon 03-18-2019 GFR/1.73 sq M predicted among non-blacks MDRD (S/P/Bld) [Vol rate/Area] 56 mL/min/1.73 m2 [facility] Comment on above: Order Comment: Order Added by Discern Expert. Performed By: #### 1 [id number] #### MARCUS RemHemo [address] [place] [id number] GFR/1.73 sq M predicted among non-blacks MDRD (S/P/Bld) [Vol rate/Area] 46 mL/min/1.73 m2 [facility] Comment on above: Order Comment: Order Added by Discern Expert. Performed By: #### 1 [id number] #### MARCUS RemHemo [address] [place] [address] Auto Diffon 03-16-2019 Basophils (Bld) [#/Vol] 0.0 E3/mcL Normal 0.0-0.2 [facility] Comment on above: Order Comment: Order Added by Discern Expert. Performed By: #### 1 [id number] #### MARCUS WilcoxHemo [address] [place] [address] Basophils/100 WBC (Bld) 0.9 % Normal 0.0-2.0 [facility] Comment on above: Order Comment: Order Added by Discern Expert. Performed By: #### 1 [id number] #### MARCUS RemHemo [address] [place] [address] Eos Absolute 0.1 E3/mcL Normal 0.0-0.7 [facility] Comment on above: Order Comment: Order Added by Discern Expert. Performed By: #### 1 [id number] #### [facility] [address] [place] [address] Eosinophils/100 WBC (Bld) 2.6 % Normal 0.0-11.0 [facility] Comment on above: Order Comment: Order Added by Discern Expert. Performed By: #### 1 [id number] #### MARCUS RemHemo [address] [place] [address] Lymphocytes (Bld) [#/Vol] 1.0 E3/mcL Low 1.2-3.4 [facility] Comment on above: Order Comment: Order Added by Discern Expert. Performed By: #### 1 [id number] #### MARCUS RemHemo [address] [place] [address] Lymphocytes/100 WBC (Bld) 23.0 % Normal 20.0-55.0 [facility] Comment on above: Order Comment: Order Added by Discern Expert. Performed By: #### 1 [id number] #### MARCUS RemHemo [address] [place] [address] [place] Absolute 0.3 E3/mcL Normal 0.0-0.7 [facility] Comment on above: Order Comment: Order Added by Discern Expert. Performed By: #### 1 [id number] #### MARCUS RemHemo [address] [place] [address] Monocytes/100 WBC (Bld) 6.8 % Normal 0.0-10.0 [facility] Comment on above: Order Comment: Order Added by Discern Expert. Performed By: #### 1 [id number] #### MARCUS WilcoxHemo [address] [place] [address] Neutro Absolute 2.9 E3/mcL Normal 1.4-6.5 [facility] Comment on above: Order Comment: Order Added by Discern Expert. Performed By: #### 1 [id number] #### MARCUS RemHemo [facility] [place] [address] Neutro Auto 66.7 % Normal 37.0-75.0 [facility] Comment on above: Order Comment: Order Added by Discern Expert. Performed By: #### 1 [id number] #### MARCUS WilcoxHemo [address] [place] [address] B12/Folateon 03-16-2019 Cobalamin (Vitamin B12) mass conc 354 pg/mL 193 - 986 pg/mL [facility] Folate mass conc 6.9 ng/mL 3.1 - 17.5 ng/mL [facility] Comment on above: Deficient <2.2 Borderline 2.2 - 3.0 Excessive >17.5 Interpretation and review of laboratory results Normal [facility] CBC w/ Auto Diffon 9 Erythrocyte distribution width (RBC) [Ratio] 13.9 % Normal 11.5-14.5 [facility] Comment on above: Performed By: #### 1 [id number] #### MARCUS WilcoxHemo [address] [place] [address] Hematocrit (Bld) [Volume fraction] 40.6 % Normal 36.0-48.0 [facility] Comment on above: Performed By: #### 1 [id number] #### MARCUS RemHemo [facility] [place] [address] Hemoglobin (Bld) [Mass/Vol] 13.5 g/dL Normal 12.0-16.0 [facility] Comment on above: Performed By: #### 1 [id number] #### MARCUS RemHemo [facility] [place] [address] MCH (RBC) [Entitic mass] 30.4 pg Normal 27.0-31.0 [facility] Comment on above: Performed By: #### 1 [id number] #### MARCUS RemHemo [address] [place] [address] MCHC (RBC) [Mass/Vol] 33.3 g/dL Normal 33.0-37.0 [facility] Comment on above: Performed By: #### 1 [id number] #### MARCUS RemHemo [address] [place] [address] MCV (RBC) [Entitic vol] 91.4 fL Normal 78.0-100.0 [facility] Comment on above: Performed By: #### 1 [id number] #### MARCUS RemHemo [address] [place] [address] Platelet mean volume (Bld) [Entitic vol] 8.3 fL Normal 7.4-11.0 [facility] Comment on above: Performed By: #### 1 [id number] #### MARCUS RemHemo [facility] [place] [address] Platelets (Bld) [#/Vol] 118 E3/mcL Low 130-400 [facility] Comment on above: Performed By: #### 1 [id number] #### MARCUS RemHemo [address] [place] [address] RBC (Bld) [#/Vol] 4.45 E6/mcL Normal 3.90-5.[address] [facility] Comment on above: Performed By: #### 1 [id number] #### MARCUS RemHemo [address] [place] [address] WBC (Bld) [#/Vol] 4.4 E3/mcL Normal 3.6-11.0 [facility] Comment on above: Performed By: #### 1 [id number] #### MARCUS RemHemo [address] [place] [address] CMPon 03-16-2019 Albumin [Mass/Vol] 4.2 g/dL Normal 3.4-5.[address] [facility] Comment on above: Performed By: #### 1 [id number] #### MARCUS RemHemo [address] [place] [address] Albumin/Globulin [Mass ratio] 1.7 {ratio} Normal 1.1-1.9 [facility] Comment on above: Performed By: #### 1 [id number] #### MARCUS RemHemo [address] [place] [address] Alk Phos 104 Int._Unit/L Normal 33-110 [facility] Comment on above: Performed By: #### 1 [id number] #### MARCUS RemHemo [address] [place] [address] ALT [Catalytic activity/Vol] 31 Int._Unit/L Normal 7-45 [facility] Comment on above: Performed By: #### 1 [id number] #### MARCUS RemHemo [address] [place] [address] Anion gap [Moles/Vol] 12 mmol/L Normal 10-20 [facility] Comment on above: Performed By: #### 1 [id number] #### MARCUSShawn WilcoxHemo [address] [place] [address] AST [Catalytic activity/Vol] 37 Int._Unit/L Normal 9-39 [facility] Comment on above: Performed By: #### 1 [id number] #### MARCUS RemHemo [address] [place] [address] Bili Total 0.79 mg/dL Normal 0.00-1.20 [facility] Comment on above: Performed By: #### 1 [id number] #### MARCUS RemHemo [address] [place] [address] Calcium [Mass/Vol] 8.8 mg/dL Normal 8.6-10.[address] [facility] Comment on above: Performed By: #### 1 [id number] #### MARCUS RemHemo [address] [place] [address] Chloride [Moles/Vol] 110 mmol/L High 98-[address] [facility] Comment on above: Performed By: #### 1 [id number] #### MARCUS RemHemo [address] [place] [address] CO2 [Moles/Vol] 20.0 mmol/L Low 21.0-32.0 [facility] Comment on above: Performed By: #### 1 [id number] #### MARCUS RemHemo [address] [place] [address] Creatinine [Mass/Vol] 1.2 mg/dL High 0.5-1.1 [facility] Comment on above: Performed By: #### 1 [id number] #### MARCUS WilcoxHemo [address] [place] [address] Globulin (S) [Mass/Vol] 3.0 g/dL Normal 2.0-4.0 [facility] Comment on above: Performed By: #### 1 [id number] #### MARCUS WilcoxHemo [address] [place] [address] Glucose [Mass/Vol] 114 mg/dL High 70-[address] [facility] Comment on above: Performed By: #### 1 [id number] #### MARCUS WilcoxHemo [address] [place] [address] Potassium [Moles/Vol] 3.4 mmol/L Low 3.5-5.3 [facility] Comment on above: Performed By: #### 1 [id number] #### MARCUS WilcoxHemo [address] [place] [address] Protein [Mass/Vol] 6.7 g/dL Normal 6.4-8.[address] [facility] Comment on above: Performed By: #### 1 [id number] #### MARCUS WilcoxHemo [address] [place] [address] Sodium [Moles/Vol] 139 mmol/L Normal 136-[address] [facility] Comment on above: Performed By: #### 1 [id number] #### MARCUS WilcoxHemo [address] [place] [address] Urea nitrogen [Mass/Vol] 9 mg/dL Normal 6-23 [facility] Comment on above: Performed By: #### 1 [id number] #### MARCUS RemHemo [address] [place] [address] Urea nitrogen/Creatinine [Mass ratio] 7.5 ratio Normal 5.4-30.0 [facility] Comment on above: Performed By: #### 1 [id number] #### MARUCS RemHemo [address] [place] [address] CT COMPARISON IMPORTon 03-16 This order has been auto-finalized and does not contain a result. [facility] This order has been auto-finalized and does not contain a result. [facility] CT Head or Brain w/o Contras ton 03-16-2019 CT Head or Brain w/o Contrast Exam Date/Time: 03/16/2019 00:08 EDT Reason for Exam: Injury Report STUDY: CT Head or Brain w/o Contrast; 03/16/2019 12:46 am INDICATION: Injury. COMPARISON: 12/01/2018 ACCESSION NUMBER(S): [id number] ORDERING CLINICIAN: Caren Gilman TECHNIQUE: Noncontrast CT images of head. FINDINGS: No significant interval change. BRAIN PARENCHYMA: Hill-white matter interfaces are preserved. No mass, mass effect or midline shift. Subtle nonspecific white matter hypoattenuation likely represents chronic small vessel [...] Signed by: Nicole Anderson MD Technologist: TAMIKO [facility] CT Spine Cervical w/o Contra ston 03-16-2019 CT Spine Cervical w/o Contrast Exam Date/Time: 03/16/2019 00:08 EDT Reason for Exam: Trauma Report STUDY: CT Spine Cervical w/o Contrast; 03/16/2019 12:46 am INDICATION: Trauma. COMPARISON: None. ACCESSION NUMBER(S): [id number] ORDERING CLINICIAN: Caren Gilman TECHNIQUE: Axial noncontrast images of the cervical spine with coronal and sagittal reconstructed images. FINDINGS: There is straightening/reversal of the normal cervical lordosis probably positional artifact rather than acute injury. There is mild multilevel spondylosis, small polyp/mucous retention cyst left maxillary sinus; the other paranasal sinuses and mastoid air cells are unremarkable. Otherwise: ALIGNMENT: Normal. VERTEBRAE: No acute fracture. SPINAL CANAL: No critical spinal canal stenosis. PREVERTEBRAL SOFT TISSUES: No prevertebral soft tissue swelling. LUNG APICES: Opacities in the lung apices likely represent atelectasis. IMPRESSION: No acute fracture or traumatic subluxation of the cervical spine. FINAL REPORT Dictated: 03/16/2019 2:40 am Nicole Anderson MD Signed (Electronic Signature): 03/16/2019 2:40 am Signed by: Nicole Anderson MD Technologist: TAMIKO [place] [facility] Lactic Acidon 03-16-2019 Lactate [Moles/Vol] 1.2 mmol/L Normal 0.4-2.0 [facility] Comment on above: Performed By: #### 1 [id number] #### MARCUS RemHemo [address] [place] [address] Otheron 03-16-2019 Aleksey Bhardwaj MD 03/16/2019 4:19 PM [facility] EEG Report Reason for EEG: Seizures. [...] epileptiform discharges or ictal activity was seen. [facility] POC Glucoseon 03-16-2019 Glucose mass conc 84 mg/dL 65 - 99 mg/dL [facility] Interpretation and review of laboratory results Normal [facility] TSH with Reflex Free T4on Interpretation and review of laboratory results Normal [facility] Thyrotropin Qn 2.12 m[IU]/L [facility] Valproic Acid Levelon 2018 Interpretation and review of laboratory results Abnormal [facility] Valproate mass conc ug/mL Low [facility]alth eGFRon 03-16-2019 GFR/1.73 sq M predicted among non-blacks MDRD (S/P/Bld) [Vol rate/Area] 58 mL/min/1.73 m2 Normal [facility] Comment on above: Order Comment: Order Added by Discern Expert. Performed By: #### 1 [id number] #### MARCUS RemHemo [address] [place] [address] GFR/1.73 sq M predicted among non-blacks MDRD (S/P/Bld) [Vol rate/Area] 48 mL/min/1.73 m2 Normal [facility] Comment on above: Order Comment: Order Added by Discern Expert. Performed By: #### 1 [id number] #### MARCUS [address] [address] Auto Diffon 03-11-2019 Basophils (Bld) [#/Vol] 0.0 E3/mcL Normal 0.0-0.2 [facility] Comment on above: Order Comment: Order Added by Discern Expert. Performed By: #### 1 [id number] #### MARCUS WilcoxHemo [address] [place] [address] Basophils/100 WBC (Bld) 0.3 % Normal 0.0-2.0 [facility] Comment on above: Order Comment: Order Added by Discern Expert. Performed By: #### 1 [id number] #### MARCUS WilcoxHemo [address] [place] [address] Eos Absolute 0.1 E3/mcL Normal 0.0-0.7 [facility] Comment on above: Order Comment: Order Added by Discern Expert. Performed By: #### 1 [id number] #### MARCUS Kenyono [address] [place] [address] Eosinophils/100 WBC (Bld) 3.7 % Normal 0.0-11.0 [facility] Comment on above: Order Comment: Order Added by Discern Expert. Performed By: #### 1 [id number] #### MARCUS WilcoxHemo [address] [place] [address] Lymphocytes (Bld) [#/Vol] 1.0 E3/mcL Low 1.2-3.4 [facility] Comment on above: Order Comment: Order Added by Discern Expert. Performed By: #### 1 [id number] #### MARCUS WilcoxHemo [address] [place] [address] Lymphocytes/100 WBC (Bld) 28.2 % Normal 20.0-55.0 [facility] Comment on above: Order Comment: Order Added by Discern Expert. Performed By: #### 1 [id number] #### MARCUS RemHemo [address] [place] [address] [place] Absolute 0.3 E3/mcL Normal 0.0-0.7 [facility] Comment on above: Order Comment: Order Added by Discern Expert. Performed By: #### 1 [id number] #### MARCUS WilcoxHemo [address] [place] [address] Monocytes/100 WBC (Bld) 8.9 % Normal 0.0-10.0 [facility] Comment on above: Order Comment: Order Added by Discern Expert. Performed By: #### 1 [id number] #### MARCUS RemHemo [address] [place] [address] Neutro Absolute 2.1 E3/mcL Normal 1.4-6.5 [facility] Comment on above: Order Comment: Order Added by Discern Expert. Performed By: #### 1 [id number] #### MARCUS RemHemo [address] [place] [address] Neutro Auto 58.9 % Normal 37.0-75.0 [facility] Comment on above: Order Comment: Order Added by Discern Expert. Performed By: #### 1 [id number] #### MARCUS RemHemo [address] [place] [address] BMPon 03-11-2019 Anion gap [Moles/Vol] 11 mmol/L Normal 10-20 [facility] Comment on above: Performed By: #### 1 [id number] #### MARCUS RemHemo [address] [place] [address] Calcium [Mass/Vol] 8.4 mg/dL Low 8.6-10.[address] [facility] Comment on above: Performed By: #### 1 [id number] #### MARCUS RemHemo [address] [place] [address] Chloride [Moles/Vol] 110 mmol/L High 98-[address] [facility] Comment on above: Performed By: #### 1 [id number] #### MARCUS RemHemo [address] [place] [address] CO2 [Moles/Vol] 19.0 mmol/L Low 21.0-32.0 [facility] Comment on above: Performed By: #### 1 [id number] #### MARCUS WilcoxHemo [address] [place] [address] Creatinine [Mass/Vol] 1.2 mg/dL High 0.5-1.1 [facility] Comment on above: Performed By: #### 1 [id number] #### MARCUS WilcoxHemo [address] [place] [address] Glucose [Mass/Vol] 88 mg/dL Normal 70-[address] [facility] Comment on above: Performed By: #### 1 [id number] #### MARCUS WilcoxHemo [address] [place] [address] Potassium [Moles/Vol] 3.8 mmol/L Normal 3.5-5.3 [facility] Comment on above: Performed By: #### 1 [id number] #### MARCUS WilcoxHemo [address] [place] [address] Sodium [Moles/Vol] 136 mmol/L Normal 136-[address] [facility] Comment on above: Performed By: #### 1 [id number] #### MARCUS WilcoxHemo [address] [place] [address] Urea nitrogen [Mass/Vol] 12 mg/dL Normal 6-23 [facility] Comment on above: Performed By: #### 1 [id number] #### MARCUS WilcoxHemo [address] [place] [address] Urea nitrogen/Creatinine [Mass ratio] 10.0 ratio Normal 5.4-30.0 [facility] Comment on above: Performed By: #### 1 [id number] #### MARCUS WilcoxHemo [address] [place] [address] CBC w/ Auto Diffon 9 Erythrocyte distribution width (RBC) [Ratio] 13.9 % Normal 11.5-14.5 [facility] Comment on above: Performed By: #### 1 [id number] #### MARCUSShawn WilcoxHemo [address] [place] [address] Hematocrit (Bld) [Volume fraction] 37.4 % Normal 36.0-48.0 [facility] Comment on above: Performed By: #### 1 [id number] #### MARCUS WilcoxHemo [address] [place] [address] Hemoglobin (Bld) [Mass/Vol] 12.4 g/dL Normal 12.0-16.0 [facility] Comment on above: Performed By: #### 1 [id number] #### MARCUS RemHemo [address] [place] [address] MCH (RBC) [Entitic mass] 30.2 pg Normal 27.0-31.0 [facility] Comment on above: Performed By: #### 1 [id number] #### MARCUS RemHemo [facility] [place] [address] MCHC (RBC) [Mass/Vol] 33.1 g/dL Normal 33.0-37.0 [facility] Comment on above: Performed By: #### 1 [id number] #### MARCUS WilcoxHemo [address] [place] [address] MCV (RBC) [Entitic vol] 91.2 fL Normal 78.0-100.0 [facility] Comment on above: Performed By: #### 1 [id number] #### MARCUS WilcoxHemo [address] [place] [address] Platelet mean volume (Bld) [Entitic vol] 8.1 fL Normal 7.4-11.0 [facility] Comment on above: Performed By: #### 1 [id number] #### MARCUS RemHemo [address] [place] [address] Platelets (Bld) [#/Vol] 120 E3/mcL Low 130-400 [facility] Comment on above: Performed By: #### 1 [id number] #### MARCUS RemHemo [facility] [place] [address] RBC (Bld) [#/Vol] 4.11 E6/mcL Normal 3.90-5.[address] [facility] Comment on above: Performed By: #### 1 [id number] #### MARCUS RemHemo [address] [place] [address] WBC (Bld) [#/Vol] 3.6 E3/mcL Normal 3.6-11.0 [facility] Comment on above: Performed By: #### 1 [id number] #### MARCUS Kenyono [address] [place] [address] Troponin-Ion 03-11-2019 Troponin I.cardiac [Mass/Vol] 0.01 ng/mL Normal 0.00-0.03 [facility] Comment on above: Performed By: #### 1 [id number] #### MARCUS Kenyono [address] [place] [address] UA Completeon 03-11-2019 Color (U) Yellow Normal [facility] Comment on above: Performed By: #### 1 [id number] #### MARCUSShawn WilcoxHemo [address] [place] [address] Glucose (U) [Mass/Vol] Negative Normal Negative [facility] Comment on above: Performed By: #### 1 [id number] #### MARCUSShawn WilcoxHemo [address] [place] [address] Ketones Ql (U) Negative Normal Negative [facility] Comment on above: Performed By: #### 1 [id number] #### MARCUSShawn Kenyono [address] [place] [address] RBC (U) [#/Vol] 0-3 Normal 0-3 [facility] Comment on above: Performed By: #### 1 [id number] #### MARCUSShawn WilcoxHemo [address] [place] [address] UA Blood Negative Normal Negative [facility] Comment on above: Performed By: #### 1 [id number] #### MARCUSShawn WilcoxHemo [address] [place] [address] UA Bacteria Trace Abnormal None [facility] Comment on above: Performed By: #### 1 [id number] #### MARCUSShawn WilcoxHemo [address] [place] [address] UA Clarity Clear Normal Clear [facility] Comment on above: Performed By: #### 1 [id number] #### MARCUSShawn WilcoxHemo [address] [place] [address] UA Leuk Est Negative Normal Negative [facility] Comment on above: Performed By: #### 1 [id number] #### MARCUSShawn WilcoxHemo [facility] [place] [id number] UA Mucous Trace Abnormal Trace [facility] Comment on above: Performed By: #### 1 [id number] #### MARCUS WilcoxHemo [address] [place] [address] UA Nitrite Negative Normal Negative [facility] Comment on above: Performed By: #### 1 [id number] #### MARCUS WilcoxHemo [address] [place] [address] UA pH 5.0 Normal 4.6-8.0 [facility] Comment on above: Performed By: #### 1 [id number] #### MARCUS WilcoxHemo [address] [place] [address] UA Protein Negative Normal Negative [facility] Comment on above: Performed By: #### 1 [id number] #### MARCUSShawn WilcoxHemo [facility] [place] [address] UA Spec Grav 1.012 Normal 1.003-1.030 [facility] Comment on above: Performed By: #### 1 [id number] #### MARCUS WilcoxHemo [address] [place] [address] UA Squam Epithelial 10-20 Abnormal 0-5 [facility] Comment on above: Performed By: #### 1 [id number] #### MARCUS WilcoxHemo [address] [place] [address] UA Urobilinogen Negative Normal [facility] Comment on above: Result Comment: Due to a manufacturing issue, low positive urobilinogen results may be fasely positive. Correlate with urine bilirubin and additional clinical/laboratory findings to assess the risk of hemolytic anemia or liver disease. If clinically indicated, repeat testing with an alternate method is available by contacting the laboratory within 24 hours. Performed By: #### 1 [id number] #### MARCUS WilcoxHemo [address] [place] [address] UA WBC 0-5 Normal 0-5 [facility] Comment on above: Performed By: #### 1 [id number] #### MARCUSShawn WilcoxHemo [facility] [place] [address] Urobilinogen Qn (U) Negative Normal Negative [facility] Comment on above: Performed By: #### 1 [id number] #### MARCUSShawn WilcoxHemo [address] [place] [address] eGFRon 03-11-2019 GFR/1.73 sq M predicted among non-blacks MDRD (S/P/Bld) [Vol rate/Area] 58 mL/min/1.73 m2 [facility] Comment on above: Order Comment: Order Added by Discern Expert. Performed By: #### 1 [id number] #### MARCUS RemHemo [address] [place] [address] GFR/1.73 sq M predicted among non-blacks MDRD (S/P/Bld) [Vol rate/Area] 48 mL/min/1.73 m2 [facility] Comment on above: Order Comment: Order Added by Discern Expert. Performed By: #### 1 [id number] #### MARCUS RemHemo [address] [place] [id number] Ammoniaon 03-08-2019 Ammonia mass conc (P) 30 ug/dL [facility] Interpretation and review of laboratory results Normal [facility] Comprehensive Metabolic Pane rock 03-08-2019 Albumin mass conc 3.6 g/dL 3.2 - 5.2 g/dL [facility] ALP enzyme act/vol 99 U/L 40 - 150 U/L [facility] ALT enzyme act/vol 31 U/L 14 - 65 U/L [facility]alth Anion gap molar conc 12 mmol/L 10 - 20 mmol/L [facility] AST enzyme act/vol 29 U/L 0 - 45 U/L [facility] alth Bilirubin mass conc 0.6 mg/dL 0 - 1.3 mg/dL [facility] Calcium mass conc 8.4 mg/dL 8.4 - 10.2 mg/dL [facility] Chloride molar conc 114 mmol/L High 98 - 108 mmol/L [facility] Creatinine mass conc 1.31 mg/dL High 0.4 - 1 .1 mg/dL [facility] GFR/1.73 sq M predicted among non-blacks MDRD vol rate/area (S/P/Bld) The eGFR should be used for monitoring renal function only and not for medication dosing. [facility] GFR/1.73 sq M.predicted CKD-EPI vol rate/area (S/P/Bld) 49 Low >=60 mL/min/1.73 m2 [facility] Glucose mass conc 94 mg/dL 65 - 99 mg/dL [facility] HCO3 molar conc 20 mmol/L Low 21 - 32 mmol/L [facility] Potassium molar conc 4.1 mmol/L 3.5 - 5 .1 mmol/L [facility] Protein mass conc 7.2 g/dL 6 - 8 g/dL [facility] Sodium molar conc 142 mmol/L 135 - 145 mmol/L [facility] Urea nitrogen mass conc 16 mg/dL 8 - 25 mg/dL [facility] Urea nitrogen/Creatinine mass ratio 12.2 mg/mg [facility] Otheron 03-08-2019 Interpretation and review of laboratory results Abnormal [facility] TSH with Reflex Free T4on Interpretation and review of laboratory results Normal [facility] Thyrotropin Qn 2.54 m[IU]/L [facility] Valproic Acid Levelon 2018 Valproate mass conc 4 ug/mL Low [facility] ealth BMPon 02-24-2019 Anion gap [Moles/Vol] 12 mmol/L Normal 10-20 [facility] Comment on above: Performed By: #### 1 [id number] #### MARCUS RemHemo [address] [place] [address] Calcium [Mass/Vol] 8.9 mg/dL Normal 8.6-10.[address] [facility] Comment on above: Performed By: #### 1 [id number] #### MARCUS RemHemo [address] [place] [address] Chloride [Moles/Vol] 110 mmol/L High 98-[address] [facility] Comment on above: Performed By: #### 1 [id number] #### MARCUS RemHemo [address] [place] [address] CO2 [Moles/Vol] 21.0 mmol/L Normal 21.0-32.0 [facility] Comment on above: Performed By: #### 1 [id number] #### MARCUS RemHemo [address] [place] [address] Creatinine [Mass/Vol] 1.3 mg/dL High 0.5-1.1 [facility] Comment on above: Performed By: #### 1 [id number] #### MARCUS RemHemo [address] [place] [address] Glucose [Mass/Vol] 89 mg/dL Normal 70-[address] [facility] Comment on above: Performed By: #### 1 [id number] #### MARCUS RemHemo [address] [place] [address] Potassium [Moles/Vol] 4.5 mmol/L Normal 3.5-5.3 [facility] Comment on above: Performed By: #### 1 [id number] #### MARCUS Kenyono [facility] [place] [address] Sodium [Moles/Vol] 138 mmol/L Normal 136-[address] [facility] Comment on above: Performed By: #### 1 [id number] #### MARCUS Kenyono [address] [place] [address] Urea nitrogen [Mass/Vol] 15 mg/dL Normal 6-23 [facility] Comment on above: Performed By: #### 1 [id number] #### MARCUS Kenyono [facility] [place] [address] Urea nitrogen/Creatinine [Mass ratio] 11.5 ratio Normal 5.4-30.0 [facility] Comment on above: Performed By: #### 1 [id number] #### MARCUS Kenyono [address] [place] [address] eGFRon 02-24-2019 GFR/1.73 sq M predicted among non-blacks MDRD (S/P/Bld) [Vol rate/Area] 43 mL/min/1.73 m2 [facility] Comment on above: Order Comment: Order Added by Discern Expert. Performed By: #### 1 [id number] #### MARCUS Kenyono [address] [place] [address] GFR/1.73 sq M predicted among non-blacks MDRD (S/P/Bld) [Vol rate/Area] 52 mL/min/1.73 m2 [facility] Comment on above: Order Comment: Order Added by Discern Expert. Performed By: #### 1 [id number] #### MARCUS WilcoxHemo [facility] [place] [address] .Manual Abson 02-23-2019 Basophil Abs Man 0.0 10x3/ Normal 0.0-0.2 [facility] Comment on above: Order Comment: Order Added by Discern Expert. Performed By: #### 1 [id number] #### MARCUS WilcoxHemo [facility] [place] [address] Eos Abs Man 0.0 10x3/ Normal 0.0-0.5 [facility] Comment on above: Order Comment: Order Added by Discern Expert. Performed By: #### 1 [id number] #### MARCUS Kenyono [facility] [place] [address] Lymph Abs Man 0.8 10x3/ Low 1.2-3.4 [facility] Comment on above: Order Comment: Order Added by Discern Expert. Performed By: #### 1 [id number] #### MARCUS Kenyono [facility] [place] [address] [place] Abs Man 0.3 10x3/ Normal 0.0-0.7 [facility] Comment on above: Order Comment: Order Added by Discern Expert. Performed By: #### 1 [id number] #### MARCUS Kenyono [facility] [place] [address] Segs Abs Man 1.0 10x3/ Low 1.4-6.5 [facility] Comment on above: Order Comment: Order Added by Discern Expert. Performed By: #### 1 [id number] #### MARCUS Kenyoncorky [facility] [place] [address] Ammoniaon 02-23-2019 Ammonia (P) [Mass/Vol] 53 mcmol/L Normal 16-53 [facility] Comment on above: Performed By: #### 1 [id number] #### MARCUS Kenyoncorky [facility] [place] [address] C Urineon 02-23-2019 C Urine Final Report: Rare Normal skin joe isolated Normal [facility] Comment on above: Performed By: #### 1 [id number] #### MARCUS Kenyoncorky [facility] [place] [address] CBC w/ Auto Diffon 9 Erythrocyte distribution width (RBC) [Ratio] 14.7 % High 11.5-14.5 [facility] Comment on above: Performed By: #### 1 [id number] #### MARCUS Kenyoncorky [facility] [place] [id number] Hematocrit (Bld) [Volume fraction] 35.2 % Low 36.0-48.0 [facility] Comment on above: Performed By: #### 1 [id number] #### MARCUS RemHemo [address] [place] [address] Hemoglobin (Bld) [Mass/Vol] 11.7 g/dL Low 12.0-16.0 [facility] Comment on above: Performed By: #### 1 [id number] #### MARCUS RemHemo [address] [place] [address] MCH (RBC) [Entitic mass] 31.2 pg High 27.0-31.0 [facility] Comment on above: Performed By: #### 1 [id number] #### MARCUS RemHemo [facility] [place] [address] MCHC (RBC) [Mass/Vol] 33.2 g/dL Normal 33.0-37.0 [facility] Comment on above: Performed By: #### 1 [id number] #### MARCUS RemHemo [address] [place] [address] MCV (RBC) [Entitic vol] 93.8 fL Normal 78.0-100.0 [facility] Comment on above: Performed By: #### 1 [id number] #### MARCUS RemHemo [address] [place] [address] Platelet mean volume (Bld) [Entitic vol] 7.6 fL Normal 7.4-11.0 [facility] Comment on above: Performed By: #### 1 [id number] #### MARCUS RemHemo [address] [place] [address] Platelets (Bld) [#/Vol] 56 E3/mcL Low 130-400 [facility] Comment on above: Performed By: #### 1 [id number] #### MARCUS RemHemo [facility] [place] [address] RBC (Bld) [#/Vol] 3.75 E6/mcL Low 3.90-5.[address] [facility] Comment on above: Performed By: #### 1 [id number] #### MARCUS RemHemo [address] [place] [address] WBC (Bld) [#/Vol] 2.4 E3/mcL Low 3.6-11.0 [facility] Comment on above: Performed By: #### 1 [id number] #### MARCUS Kenyono [address] [place] [address] CMPon 02-23-2019 Albumin [Mass/Vol] 3.3 g/dL Low 3.4-5.[address] [facility] Comment on above: Performed By: #### 1 [id number] #### MARCUS Kenyono [address] [place] [address] Albumin/Globulin [Mass ratio] 1.5 {ratio} Normal 1.1-1.9 [facility] Comment on above: Performed By: #### 1 [id number] #### MARCUS WilcoxHemo [address] [place] [address] Alk Phos 57 Int._Unit/L Normal 33-110 [facility] Comment on above: Performed By: #### 1 [id number] #### MARCUS Kenyono [facility] [place] [address] ALT [Catalytic activity/Vol] 12 Int._Unit/L Normal 7-45 [facility] Comment on above: Performed By: #### 1 [id number] #### MARCUS Kenyono [address] [place] [address] Anion gap [Moles/Vol] 10 mmol/L Normal 10-20 [facility] Comment on above: Performed By: #### 1 [id number] #### MARCUS Kenyono [address] [place] [address] AST [Catalytic activity/Vol] 20 Int._Unit/L Normal 9-39 [facility] Comment on above: Performed By: #### 1 [id number] #### MARCUS WilcoxHemo [address] [place] [address] Bili Total 0.33 mg/dL Normal 0.00-1.20 [facility] Comment on above: Performed By: #### 1 [id number] #### MARCUSShawn WilcoxHemo [address] [place] [address] Calcium [Mass/Vol] 8.3 mg/dL Low 8.6-10.[address] [facility] Comment on above: Performed By: #### 1 [id number] #### MARCUSShawn WilcoxHemo [address] [place] [address] Chloride [Moles/Vol] 114 mmol/L High 98-[address] [facility] Comment on above: Performed By: #### 1 [id number] #### MARCUS RemHemo [address] [place] [address] CO2 [Moles/Vol] 22.0 mmol/L Normal 21.0-32.0 [facility] Comment on above: Performed By: #### 1 [id number] #### MARCUS RemHemo [address] [place] [address] Creatinine [Mass/Vol] 1.2 mg/dL High 0.5-1.1 [facility] Comment on above: Performed By: #### 1 [id number] #### MARCUS RemHemo [address] [place] [address] Globulin (S) [Mass/Vol] 2.0 g/dL Normal 2.0-4.0 [facility] Comment on above: Performed By: #### 1 [id number] #### MARCUS RemHemo [address] [place] [address] Glucose [Mass/Vol] 86 mg/dL Normal 70-[address] [facility] Comment on above: Performed By: #### 1 [id number] #### MARCUS RemHemo [address] [place] [address] Potassium [Moles/Vol] 4.4 mmol/L Normal 3.5-5.3 [facility] Comment on above: Performed By: #### 1 [id number] #### MARCUS RemHemo [address] [place] [address] Protein [Mass/Vol] 5.5 g/dL Low 6.4-8.[address] [facility] Comment on above: Performed By: #### 1 [id number] #### MARCUS RemHemo [address] [place] [address] Sodium [Moles/Vol] 141 mmol/L Normal 136-[address] [facility] Comment on above: Performed By: #### 1 [id number] #### MARCUS RemHemo [address] [place] [address] Urea nitrogen [Mass/Vol] 11 mg/dL Normal 6-23 [facility] Comment on above: Performed By: #### 1 [id number] #### MARCUS RemHemo [address] [place] [address] Urea nitrogen/Creatinine [Mass ratio] 9.2 ratio Normal 5.4-30.0 [facility] Comment on above: Performed By: #### 1 [id number] #### MARCUS Kenyono [facility] [place] [address] Lamotrigine Lvlon 02-23-2019 Lamotrigine Lvl None Detected Normal 2.0-20.[address] [facility] Comment on above: Result Comment: This test was developed and its performance characteristics determined by [facility]. It has not been cleared or approved by the Food and Drug Administration. Detection Limit = 1.0 Performed At: [address] [id number] Aramis Sharpe MD Ph:[phone] Performed By: #### 1 [id number] #### MARCUS WilcoxHemo [facility]5 [place] [address] Manual Diffon 02-23-2019 Band form neutrophils/100 WBC (Bld) 9 High 0-1 [facility] Comment on above: Order Comment: Order Added by Discern Expert. Performed By: #### 1 [id number] #### MARCUS RemHemo [facility] [place] [address] Basophil Man 0 % Normal 0-1 [facility] Comment on above: Order Comment: Order Added by Discern Expert. Performed By: #### 1 [id number] #### MARCUS WilcoxHemo [address] [place] [address] Eosinophils/100 WBC (Bld) 2 % Normal 0-5 [facility] Comment on above: Order Comment: Order Added by Discern Expert. Performed By: #### 1 [id number] #### MARCUS RemHemo [address] [place] [address] Lymphocytes/100 WBC (Bld) 33 % Normal 14-48 [facility] Comment on above: Order Comment: Order Added by Discern Expert. Performed By: #### 1 [id number] #### MARCUS RemHemo [address] [place] [address] [employer] Mdl Man 3 % High 0-0 [facility] Comment on above: Order Comment: Order Added by Discern Expert. Performed By: #### 1 [id number] #### MARCUS RemHemo [address] [place] [address] Monocyte Man 11 % Normal 1-11 [facility] Comment on above: Order Comment: Order Added by Discern Expert. Performed By: #### 1 [id number] #### MARCUS RemHemo [address] [place] [id number] Myelo Man 2 % High 0-0 [facility] Comment on above: Order Comment: Order Added by Discern Expert. Performed By: #### 1 [id number] #### MARCUS RemHemo [address] [place] [address] Ovalocytes 1+ Normal [facility] Comment on above: Order Comment: Order Added by Discern Expert. Performed By: #### 1 [id number] #### MARCUS RemHemo [facility] [place] [address] Polychromasia 1+ Normal [facility] Comment on above: Order Comment: Order Added by Discern Expert. Performed By: #### 1 [id number] #### MARCUS WilcoxHemo [address] [place] [address] RBC morphology finding Nom (Bld) SEE MORPHOLOGY Normal [facility] Comment on above: Order Comment: Order Added by Discern Expert. Performed By: #### 1 [id number] #### MARCUS RemHemo [address] [place] [address] Segs Man 40 % Normal 37-75 [facility] Comment on above: Order Comment: Order Added by Discern Expert. Performed By: #### 1 [id number] #### MARCUS RemHemo [facility] [place] [address] eGFRon 02-23-2019 GFR/1.73 sq M predicted among non-blacks MDRD (S/P/Bld) [Vol rate/Area] 60 mL/min/1.73 m2 [facility] Comment on above: Order Comment: Order Added by Discern Expert. Performed By: #### 1 [id number] #### MARCUS RemHemo [facility] [place] [address] GFR/1.73 sq M predicted among non-blacks MDRD (S/P/Bld) [Vol rate/Area] 50 mL/min/1.73 m2 [facility] Comment on above: Order Comment: Order Added by Discern Expert. Performed By: #### 1 [id number] #### MARCUS WilcoxHemo [facility] [place] [address] zzplt morphon 02-23-2019 Platelet morphology finding Nom (Bld) NORMAL Normal [facility] Comment on above: Performed By: #### 1 [id number] #### MARCUS WilcoxKarlo [address] [place] [address] Platelets (Bld) [#/Vol] DECREASED Normal [facility] Comment on above: Performed By: #### 1 [id number] #### MARCUS WilcoxHemo [facility] [place] [address] .Manual Abson 02-22-2019 Basophil Abs Man 0.0 10x3/ Normal 0.0-0.2 [facility] Comment on above: Order Comment: Order Added by Discern Expert. Performed By: #### 1 [id number] #### MARCUS WilcoxHemo [address] [place] [address] Eos Abs Man 0.0 10x3/ Normal 0.0-0.5 [facility] Comment on above: Order Comment: Order Added by Discern Expert. Performed By: #### 1 [id number] #### MARCUS WilcoxHemo [address] [place] [address] Lymph Abs Man 1.4 10x3/ Normal 1.2-3.4 [facility] Comment on above: Order Comment: Order Added by Discern Expert. Performed By: #### 1 [id number] #### MARCUS WilcoxHemo [address] [place] [address] [place] Abs Man 0.3 10x3/ Normal 0.0-0.7 [facility] Comment on above: Order Comment: Order Added by Discern Expert. Performed By: #### 1 [id number] #### MARCUS WilcoxHemo [address] [place] [address] Segs Abs Man 1.1 10x3/ Low 1.4-6.5 [facility] Comment on above: Order Comment: Order Added by Discern Expert. Performed By: #### 1 [id number] #### MARCUS WilcoxHemo [facility] [place] [address] BMPon 02-22-2019 Anion gap [Moles/Vol] 10 mmol/L Normal 10-20 [facility] Comment on above: Performed By: #### 2 [id number] #### MARCUS WilcoxHemo [address] [place] [address] Calcium [Mass/Vol] 7.7 mg/dL Low 8.6-10.[address] [facility] Comment on above: Performed By: #### 2 [id number] #### MARCUS WilcoxHemo [address] [place] [address] Chloride [Moles/Vol] 115 mmol/L High 98-[address] [facility] Comment on above: Performed By: #### 2 [id number] #### MARCUS WilcoxHemo [address] [place] [address] CO2 [Moles/Vol] 20.0 mmol/L Low 21.0-32.0 [facility] Comment on above: Performed By: #### 2 [id number] #### MARCUS WilcoxHemo [address] [place] [address] Creatinine [Mass/Vol] 1.2 mg/dL High 0.5-1.1 [facility] Comment on above: Performed By: #### 2 [id number] #### MARCUS RemHemo [address] [place] [address] Glucose [Mass/Vol] 89 mg/dL Normal 70-[address] [facility] Comment on above: Performed By: #### 2 [id number] #### MARCUS WilcoxHemo [address] [place] [address] Potassium [Moles/Vol] 4.3 mmol/L Normal 3.5-5.3 [facility] Comment on above: Performed By: #### 2 [id number] #### MARCUS RemHemo [address] [place] [address] Sodium [Moles/Vol] 141 mmol/L Normal 136-[address] [facility] Comment on above: Performed By: #### 2 [id number] #### MARCUS RemHemo [address] [place] [address] Urea nitrogen [Mass/Vol] 14 mg/dL Normal 6-23 [facility] Comment on above: Performed By: #### 2 [id number] #### MARCUS RemHemo [address] [place] [address] Urea nitrogen/Creatinine [Mass ratio] 11.7 ratio Normal 5.4-30.0 [facility] Comment on above: Performed By: #### 2 [id number] #### MARCUS WilcoxHemo [address] [place] [address] CBC w/ Auto Diffon 9 Erythrocyte distribution width (RBC) [Ratio] 15.0 % High 11.5-14.5 [facility] Comment on above: Performed By: #### 1 [id number] #### MARCUS RemHemo [address] [place] [address] Hematocrit (Bld) [Volume fraction] 35.9 % Low 36.0-48.0 [facility] Comment on above: Performed By: #### 1 [id number] #### MARCUS WilcoxHemo [facility] [place] [address] Hemoglobin (Bld) [Mass/Vol] 11.8 g/dL Low 12.0-16.0 [facility] Comment on above: Performed By: #### 1 [id number] #### MARCUS RemHemo [address] [place] [address] MCH (RBC) [Entitic mass] 31.1 pg High 27.0-31.0 [facility] Comment on above: Performed By: #### 1 [id number] #### MARCUS RemHemo [address] [place] [address] MCHC (RBC) [Mass/Vol] 32.9 g/dL Low 33.0-37.0 [facility] Comment on above: Performed By: #### 1 [id number] #### MARCUS RemHemo [address] [place] [address] MCV (RBC) [Entitic vol] 94.6 fL Normal 78.0-100.0 [facility] Comment on above: Performed By: #### 1 [id number] #### MARCUS RemHemo [address] [place] [address] Platelet mean volume (Bld) [Entitic vol] 7.9 fL Normal 7.4-11.0 [facility] Comment on above: Performed By: #### 1 [id number] #### MARCUS WilcoxHemo [address] [place] [address] Platelets (Bld) [#/Vol] 62 E3/mcL Low 130-400 [facility] Comment on above: Performed By: #### 1 [id number] #### MARCUS WilcoxHemo [address] [place] [id number] RBC (Bld) [#/Vol] 3.79 E6/mcL Low 3.90-5.[address] [facility] Comment on above: Performed By: #### 1 [id number] #### MARCUSShawn WilcoxHemo [address] [place] [address] WBC (Bld) [#/Vol] 2.8 E3/mcL Low 3.6-11.0 [facility] Comment on above: Performed By: #### 1 [id number] #### MARCUS WilcoxHemo [facility] [place] [address] Gases - Bloodon 02-22-2019 Allens Test. Normal [facility] Comment on above: Performed By: #### 1 [id number] #### MARCUS WilcoxHemo [address] [place] [address] Base Excess. -9 mmol/L Low -2-3 [facility] Comment on above: Performed By: #### 1 [id number] #### MARCUS WilcoxHemo [address] [place] [address] CO2 Tot. 17 mmol/L Low 22-28 [facility] Comment on above: Performed By: #### 1 [id number] #### MARCUS RemHemo [address] [place] [address] CPAP/PEEP(cmH2O). NOT CALCULATED Normal [facility] Comment on above: Performed By: #### 1 [id number] #### MARCUS RemHemo [address] [place] [address] FiO2. 21 % Normal [facility] Comment on above: Performed By: #### 1 [id number] #### MARCUS RemHemo [address] [place] [address] HCO#. 16.3 mmol/L Low 22.0-26.0 [facility] Comment on above: Performed By: #### 1 [id number] #### MARCUS WilcoxHemo [address] [place] [address] O2 Devices. Room Air [facility] Comment on above: Performed By: #### 1 [id number] #### MARCUS WilcoxHemo [address] [place] [address] OPID. [id number] [facility] Comment on above: Performed By: #### 1 [id number] #### MARCUS WilcoxHemo [facility] [place] [address] Oxygen (Bld) [Partial pressure] 101 mmHg High 80-100 [facility] Comment on above: Performed By: #### 1 [id number] #### MARCUS WilcoxHemo [facility] [place] [address] Oxygen saturation in Blood 98 % Normal 95-100 [facility] Comment on above: Performed By: #### 1 [id number] #### MARUCS WilcoxHemo [address] [place] [address] P CO2. 28.4 mmHg Low 35.0-45.0 [facility] Comment on above: Performed By: #### 1 [id number] #### MARCUS WilcoxHemo [address] [place] [address] Patient Temp. NOT CALCULATED [facility] Comment on above: Performed By: #### 1 [id number] #### MARCUS WilcoxHemo [address] [place] [address] pH (Bld) 7.367 Normal 7.350-7.450 [facility] Comment on above: Performed By: #### 1 [id number] #### MARCUS WilcoxHemo [address] [place] [address] PSV/IP(cmH2O). NOT CALCULATED [facility] Comment on above: Performed By: #### 1 [id number] #### MARCUSShawn WilcoxHemo [address] [place] [address] Sample Site. R brach [facility] Comment on above: Performed By: #### 1 [id number] #### MARCUS WilcoxHemo [address] [place] [address] Sample Type. Arterial [facility] Comment on above: Performed By: #### 1 [id number] #### MARCUS Luong [facility] [place] [address] Set RR(b/min). NOT CALCULATED Normal [facility] Comment on above: Performed By: #### 1 [id number] #### MARCUS Luong [facility] [place] [address] Tidal Volume(mL). NOT CALCULATED Normal [facility] Comment on above: Performed By: #### 1 [id number] #### MARCUS Luong [address] [place] [address] Vent Mode. NOT CALCULATED Normal [facility] Comment on above: Performed By: #### 1 [id number] #### MARCUS Kenyono [address] [place] [address] [id number] 02-22-2019 HbA1c (Bld) [Mass fraction] 5.1 % Normal 4.0-6.3 [facility] Comment on above: Performed By: #### 1 [id number] #### MARCUS Luong [address] [place] [address] Magnesiumon 02-22-2019 Magnesium [Mass/Vol] 1.8 mg/dL Normal 1.6-2.[address] [facility] Comment on above: Performed By: #### 1 [id number] #### MARCUS Kenyono [address] [place] [address] Manual Diffon 02-22-2019 Anisocytosis Ql (Bld) 1+ Normal [facility] Comment on above: Order Comment: Order Added by Discern Expert. Performed By: #### 1 [id number] #### MARCUS WilcoxHemo [address] [place] [address] Basophil Man 0 % Normal 0-1 [facility] Comment on above: Order Comment: Order Added by Discern Expert. Performed By: #### 1 [id number] #### MARCUS WilcoxHemo [facility] [place] [id number] Eosinophils/100 WBC (Bld) 0 % Normal 0-5 [facility] Comment on above: Order Comment: Order Added by Discern Expert. Performed By: #### 1 [id number] #### MARCUS WilcoxHemo [facility] [place] [address] Lymphocytes/100 WBC (Bld) 51 % High 14-48 [facility] Comment on above: Order Comment: Order Added by Discern Expert. Performed By: #### 1 [id number] #### MARCUS Kenyono [facility] [place] [address] Monocyte Man 9 % Normal 1-11 [facility] Comment on above: Order Comment: Order Added by Discern Expert. Performed By: #### 1 [id number] #### MARCUS WilcoxHemo [facility] [place] [id number] RBC morphology finding Nom (Bld) SEE MORPHOLOGY Normal [facility] Comment on above: Order Comment: Order Added by Discern Expert. Performed By: #### 1 [id number] #### MARCUS WilcoxHemo [facility] [place] [address] Segs Man 40 % Normal 37-75 [facility] Comment on above: Order Comment: Order Added by Discern Expert. Performed By: #### 1 [id number] #### MARCUS WilcoxHemo [facility] [place] [id number] Phosphoruson 02-22-2019 Phosphate [Mass/Vol] 2.7 mg/dL Normal 2.5-4.[address] [facility] Comment on above: Performed By: #### 1 [id number] #### MARCUS WilcoxHemo [address] [place], [place] [id number] Valproic Acidon 02-22-2019 Valpro Acid Lvl 75 microgram/mL Normal 50-[address] [facility] Comment on above: Performed By: #### 1 [id number] #### MARCUS WilcoxHemo [facility] [place] [id number] eGFRon 02-22-2019 GFR/1.73 sq M predicted among non-blacks MDRD (S/P/Bld) [Vol rate/Area] 56 mL/min/1.73 m2 Normal [facility] Comment on above: Order Comment: Order added by Discern Expert. Performed By: #### 2 [id number] #### MARCUS WilcoxHemo [facility] [place] [address] GFR/1.73 sq M predicted among non-blacks MDRD (S/P/Bld) [Vol rate/Area] 46 mL/min/1.73 m2 Normal [facility] Comment on above: Order Comment: Order added by Discern Expert. Performed By: #### 2 [id number] #### MARCUS RemHemo [address] [place] [address] zzplt morphon 02-22-2019 Platelet morphology finding Nom (Bld) ENLARGED Normal [facility] Comment on above: Performed By: #### 1 [id number] #### MARCUS RemHemo [address] [place] [address] Platelets (Bld) [#/Vol] DECREASED Normal [facility] Comment on above: Performed By: #### 1 [id number] #### MARCUS RemHemo [address] [place] [address] Acetamnphn Lvlon 02-21-2019 Acetaminoph Lvl <10 Normal 10-30 [facility] Comment on above: Performed By: #### 2 [id number] #### MARCUS Microbiology Subsection [address] [place] [address] Ammoniaon 02-21-2019 Ammonia (P) [Mass/Vol] 55 mcmol/L High 16-53 [facility] Comment on above: Performed By: #### 2 [id number] #### MARCUS Microbiology Subsection [address] [place] [address] Auto Diffon 02-21-2019 Basophils (Bld) [#/Vol] 0.0 E3/mcL Normal 0.0-0.2 [facility] Comment on above: Order Comment: Order Added by Discern Expert. Performed By: #### 2 [id number] #### MARCUS Microbiology Subsection [address] [place] [address] Basophils/100 WBC (Bld) 0.4 % Normal 0.0-2.0 [facility] Comment on above: Order Comment: Order Added by Discern Expert. Performed By: #### 2 [id number] #### MARCUS Microbiology Subsection [address] [place] [address] Eos Absolute 0.1 E3/mcL Normal 0.0-0.7 [facility] Comment on above: Order Comment: Order Added by Discern Expert. Performed By: #### 2 [id number] #### MARCUS Microbiology Subsection [address] [place] [address] Eosinophils/100 WBC (Bld) 1.4 % Normal 0.0-11.0 [facility] Comment on above: Order Comment: Order Added by Discern Expert. Performed By: #### 2 [id number] #### MARCUS Microbiology Subsection [address] [place] [address] Lymphocytes (Bld) [#/Vol] 1.0 E3/mcL Low 1.2-3.4 [facility] Comment on above: Order Comment: Order Added by Discern Expert. Performed By: #### 2 [id number] #### MARCUS Microbiology Subsection [address] [place] [address] Lymphocytes/100 WBC (Bld) 24.1 % Normal 20.0-55.0 [facility] Comment on above: Order Comment: Order Added by Katya Expert. Performed By: #### 2 [id number] #### MARCUS Microbiology Subsection [address] [place] [address] [place] Absolute 0.5 E3/mcL Normal 0.0-0.7 [facility] Comment on above: Order Comment: Order Added by Katya Expert. Performed By: #### 2 [id number] #### MARCUS Microbiology Subsection [address] [place] [address] Monocytes/100 WBC (Bld) 10.8 % High 0.0-10.0 [facility] Comment on above: Order Comment: Order Added by Katya Expert. Performed By: #### 2 [id number] #### MARCUS Microbiology Subsection [address] [place] [address] Neutro Absolute 2.7 E3/mcL Normal 1.4-6.5 [facility] Comment on above: Order Comment: Order Added by Katya Expert. Performed By: #### 2 [id number] #### MARCUS Microbiology Subsection [address] [place] [address] Neutro Auto 63.3 % Normal 37.0-75.0 [facility] Comment on above: Order Comment: Order Added by Katya Expert. Performed By: #### 2 [id number] #### MARCUS Microbiology Subsection [address] [place] [address] BMPon 02-21-2019 Anion gap [Moles/Vol] 18 mmol/L Normal 10-20 [facility] Comment on above: Performed By: #### 8 [id number] #### MARCUS Urinalysis Automated Subsection [address] [place] [address] Calcium [Mass/Vol] 8.6 mg/dL Normal 8.6-10.[address] [facility] Comment on above: Performed By: #### 8 [id number] #### MARCUS Urinalysis Automated Subsection [address] [place] [address] Chloride [Moles/Vol] 106 mmol/L Normal 98-[address] [facility] Comment on above: Performed By: #### 8 [id number] #### MARCUS Urinalysis Automated Subsection [address] [place] [address] CO2 [Moles/Vol] 16.0 mmol/L Low 21.0-32.0 [facility] Comment on above: Performed By: #### 8 [id number] #### MARCUS Urinalysis Automated Subsection [address] [place] [address] Creatinine [Mass/Vol] 1.4 mg/dL High 0.5-1.1 [facility] Comment on above: Performed By: #### 8 [id number] #### MARCUS Urinalysis Automated Subsection [address] [place] [address] Glucose [Mass/Vol] 165 mg/dL High 70-[address] [facility] Comment on above: Performed By: #### 8 [id number] #### MARCUS Urinalysis Automated Subsection [address] [place] [address] Potassium [Moles/Vol] 2.9 mmol/L Low 3.5-5.3 [facility] Comment on above: Performed By: #### 8 [id number] #### MARCUS Urinalysis Automated Subsection [address] [place] [address] Sodium [Moles/Vol] 137 mmol/L Normal 136-[address] [facility] Comment on above: Performed By: #### 8 [id number] #### MARCUS Urinalysis Automated Subsection [address] [place] [address] Urea nitrogen [Mass/Vol] 14 mg/dL Normal 6-23 [facility] Comment on above: Performed By: #### 8 [id number] #### MARCUS Urinalysis Automated Subsection [address] [place] [address] Urea nitrogen/Creatinine [Mass ratio] 10.0 ratio Normal 5.4-30.0 [facility] Comment on above: Performed By: #### 8 [id number] #### MARCUS Urinalysis Automated Subsection [address] [place] [address] CBC w/ Auto Diffon 9 Erythrocyte distribution width (RBC) [Ratio] 14.7 % High 11.5-14.5 [facility] Comment on above: Performed By: #### 8 [id number] #### MARCUS Urinalysis Automated Subsection [facility] [place] [address] Hematocrit (Bld) [Volume fraction] 41.4 % Normal 36.0-48.0 [facility] Comment on above: Performed By: #### 8 [id number] #### MARCUS Urinalysis Automated Subsection [address] [place], [place] [address] Hemoglobin (Bld) [Mass/Vol] 13.3 g/dL Normal 12.0-16.0 [facility] Comment on above: Performed By: #### 8 [id number] #### MARCUS Urinalysis Automated Subsection [address] [place], [place] [address] MCH (RBC) [Entitic mass] 30.7 pg Normal 27.0-31.0 [facility] Comment on above: Performed By: #### 8 [id number] #### MARCUS Urinalysis Automated Subsection [address] [place], [place] [address] MCHC (RBC) [Mass/Vol] 32.2 g/dL Low 33.0-37.0 [facility] Comment on above: Performed By: #### 8 [id number] #### MARCUS Urinalysis Automated Subsection [address] [place] [address] MCV (RBC) [Entitic vol] 95.5 fL Normal 78.0-100.0 [facility] Comment on above: Performed By: #### 8 [id number] #### MARCUS Urinalysis Automated Subsection [address] [place] [address] Platelet mean volume (Bld) [Entitic vol] 7.9 fL Normal 7.4-11.0 [facility] Comment on above: Performed By: #### 8 [id number] #### MARCUS Urinalysis Automated Subsection [facility] [place] [address] Platelets (Bld) [#/Vol] 66 E3/mcL Low 130-400 [facility] Comment on above: Performed By: #### 8 [id number] #### MARCUS Urinalysis Automated Subsection [facility] [place] [address] RBC (Bld) [#/Vol] 4.34 E6/mcL Normal 3.90-5.[address] [facility] Comment on above: Performed By: #### 8 [id number] #### MARCUS Urinalysis Automated Subsection [address] [place] [address] WBC (Bld) [#/Vol] 4.2 E3/mcL Normal 3.6-11.0 [facility] Comment on above: Performed By: #### 8 [id number] #### MARCUS Urinalysis Automated Subsection [address] [place] [address] CKon 02-21-2019 Total CK 46 Int._Unit/L Normal <=215 [facility] Comment on above: Performed By: #### 8 [id number] #### MARCUS Urinalysis Automated Subsection [address] [place] [address] Ethanolon 02-21-2019 Ethanol [Mass/Vol] mg/dL Normal <=[address] [facility] Comment on above: Performed By: #### 2 [id number] #### MARCUS Microbiology Subsection [address] [place] [address] Gases - Bloodon 02-21-2019 Allens Test. Positive Normal [facility] Comment on above: Performed By: #### 2 [id number] #### MARCUS RemHemo [address] [place] [address] Base Excess. -9 mmol/L Low -2-3 [facility] Comment on above: Performed By: #### 2 [id number] #### MARCUS RemHemo [facility] [place] [address] CO2 Tot. 18 mmol/L Low 22-28 [facility] Comment on above: Performed By: #### 2 [id number] #### MARCUS RemHemo [address] [place] [address] CPAP/PEEP(cmH2O). 0 [facility] Comment on above: Performed By: #### 2 [id number] #### MARCUS Kenyono [address] [place] [address] FiO2. 21 % Normal [facility] Comment on above: Performed By: #### 2 [id number] #### MARCUS Kenyono [facility] [place] [address] HCO#. 17.2 mmol/L Low 22.0-26.0 [facility] Comment on above: Performed By: #### 2 [id number] #### MARCUS Kenyono [facility] [place] [address] O2 Devices. Room Air [facility] Comment on above: Performed By: #### 2 [id number] #### MARCUS Kenyono [address] [place] [address] OPID. [id number] [facility] Comment on above: Performed By: #### 2 [id number] #### MARCUS Kenyono [address] [place] [address] Oxygen (Bld) [Partial pressure] 85 mmHg Normal 80-100 [facility] Comment on above: Performed By: #### 2 135790 #### MARCUS Kenyono [address] [place], [place] [address] Oxygen saturation in Blood 96 % Normal 95-100 [facility] Comment on above: Performed By: #### 2 483156 #### MARCUS Kenyono [address] [place] [address] P CO2. 32.7 mmHg Low 35.0-45.0 [facility] Comment on above: Performed By: #### 2 [id number] #### MARCUS WilcoxHemo [address] [place] [id number] Patient Temp. NOT CALCULATED Normal [facility] Comment on above: Performed By: #### 2 [id number] #### MARCUS WilcoxHemo [address] [place] [id number] pH (Bld) 7.329 Low 7.350-7.450 [facility] Comment on above: Performed By: #### 2 [id number] #### MARCUS WilcoxHemo [address] [place] [address] PSV/IP(cmH2O). 0 [facility] Comment on above: Performed By: #### 2 [id number] #### MARCUS WilcoxHemo [address] [place] [address] Sample Site. R rad [facility] Comment on above: Performed By: #### 2 [id number] #### MARCUS WilcoxHemo [facility] [place] [address] Sample Type. Arterial [facility] Comment on above: Performed By: #### 2 [id number] #### MARCUS Kenyono [facility] [place] [address] Set RR(b/min). 0 [facility] Comment on above: Performed By: #### 2 [id number] #### MARCUS WilcoxHemo [facility] [place] [address] Tidal Volume(mL). 0 [facility] Comment on above: Performed By: #### 2 [id number] #### MARCUS WilcoxHemo [address] [place] [address] Vent Mode. NOT CALCULATED [facility] Comment on above: Performed By: #### 2 [id number] #### MARCUS WilcoxHemo [address] [place] [address] Allens Test. Negative [facility] Comment on above: Performed By: #### 2 [id number] #### MARCUS WilcoxHemo [address] [place] [address] Base Excess. -8 mmol/L Low -2-3 [facility] Comment on above: Performed By: #### 2 [id number] #### MARCUS RemHemo [address] [place] [address] CO2 Tot. 19 mmol/L Low 22-28 [facility] Comment on above: Performed By: #### 2 [id number] #### MARCUS RemHemo [address] [place] [address] CPAP/PEEP(cmH2O). NOT CALCULATED [facility] Comment on above: Performed By: #### 2 [id number] #### MARCUS RemHemo [address] [place] [address] FiO2. 21 % Normal [facility] Comment on above: Performed By: #### 2 [id number] #### MARCUS Kenyono [facility] [place] [address] HCO#. 17.9 mmol/L Low 22.0-26.0 [facility] Comment on above: Performed By: #### 2 565415 #### MARCUS Kenyono [facility] [place] [address] O2 Devices. Room Air [facility] Comment on above: Performed By: #### 2 [id number] #### MARCUS Kenyono [facility] [place] [address] OPID. [id number] [facility] Comment on above: Performed By: #### 2 [id number] #### MARCUS Kenyono [address] [place] [address] Oxygen (Bld) [Partial pressure] 86 mmHg Normal 80-100 [facility] Comment on above: Performed By: #### 2 [id number] #### MARCUS Kenyono [address] [place] [address] Oxygen saturation in Blood 96 % Normal 95-100 [facility] Comment on above: Performed By: #### 2 [id number] #### MARCUS Kenyono [address] [place], [place] [address] P CO2. 34.1 mmHg Low 35.0-45.0 [facility] Comment on above: Performed By: #### 2 [id number] #### MARCUS WilcoxHemo [address] [place] [address] Patient Temp. NOT CALCULATED Normal [facility] Comment on above: Performed By: #### 2 [id number] #### MARCUS Kenyono [address] [place] [id number] pH (Bld) 7.329 Low 7.350-7.450 [facility] Comment on above: Performed By: #### 2 905160 #### MARCUS WilcoxHemo [address] [place] [id number] PSV/IP(cmH2O). NOT CALCULATED Normal [facility] Comment on above: Performed By: #### 2 [id number] #### MARCUS Kenyono [facility] [place] [address] Sample Site. R rad Normal [facility] Comment on above: Performed By: #### 2 [id number] #### MARCUS Kenyono [facility] [place] [address] Sample Type. Arterial Normal [facility] Comment on above: Performed By: #### 2 [id number] #### MARCUS Kenyono [facility] [place] [address] Set RR(b/min). NOT CALCULATED Normal [facility] Comment on above: Performed By: #### 2 [id number] #### MARCUS Kenyono [facility] [place] [address] Tidal Volume(mL). NOT CALCULATED [facility] Comment on above: Performed By: #### 2 [id number] #### MARCUS Kenyono [facility] [place] [address] Vent Mode. NOT CALCULATED [facility] Comment on above: Performed By: #### 2 [id number] #### MARCUS WilcoxHemo [facility] [place] [address] Hep Func Panelon 02-21-2019 Albumin [Mass/Vol] 4.0 g/dL Normal 3.4-5.[address] [facility] Comment on above: Performed By: #### 8 [id number] #### MARCUS Urinalysis Automated Subsection [address] [place] [address] Albumin/Globulin [Mass ratio] 1.5 {ratio} Normal 1.1-1.9 [facility] Comment on above: Performed By: #### 8 [id number] #### MARCUS Urinalysis Automated Subsection [address] [place] [address] Alk Phos 69 Int._Unit/L Normal 33-110 [facility] Comment on above: Performed By: #### 8 [id number] #### MARCUS Urinalysis Automated Subsection [address] [place], [place] [address] ALT [Catalytic activity/Vol] 18 Int._Unit/L Normal 7-45 [facility] Comment on above: Performed By: #### 8 [id number] #### MARCUS Urinalysis Automated Subsection [address] [place] [address] AST [Catalytic activity/Vol] 33 Int._Unit/L Normal 9-39 [facility] Comment on above: Performed By: #### 8 [id number] #### MARCUS Urinalysis Automated Subsection [facility] [place] [address] Bili Direct 0.10 mg/dL Normal 0.00-0.30 [facility] Comment on above: Performed By: #### 8 [id number] #### MARCUS Urinalysis Automated Subsection [address] [place] [address] Bili Indirect 0.33 mg/dL Normal [facility] Comment on above: Result Comment: No e stablished ranges available for the indirect bilirubin Performed By: #### 8 [id number] #### MARCUS Urinalysis Automated Subsection [address] [place] [address] Bili Total 0.43 mg/dL Normal 0.00-1.20 [facility] Comment on above: Performed By: #### 8 [id number] #### MARCUS Urinalysis Automated Subsection [address] [place] [address] Globulin (S) [Mass/Vol] 3.0 g/dL Normal 2.0-4.0 [facility] Comment on above: Performed By: #### 8 [id number] #### MARCUS Urinalysis Automated Subsection [address] [place] [address] Protein [Mass/Vol] 6.6 g/dL Normal 6.4-8.[address] [facility] Comment on above: Performed By: #### 8 [id number] #### MARCUS Urinalysis Automated Subsection [address] [place] [address] Lactic Acidon 02-21-2019 Lactate [Moles/Vol] 1.4 mmol/L Normal 0.4-2.0 [facility] Comment on above: Order Comment: Sepsi s Reflex order due to high lactic acid level Performed By: #### 2 [id number] #### MARCUS RemHemo [address] [place] [address] Lactate [Moles/Vol] 2.2 mmol/L High 0.4-2.0 [facility] Comment on above: Performed By: #### 2 [id number] #### MARCUS RemHemo [address] [place] [address] Lipase Levelon 02-21-2019 Lipase Lvl 37 Int._Unit/L Normal 9-82 [facility] Comment on above: Performed By: #### 8 [id number] #### MARCUS Urinalysis Automated Subsection [address] [place] [address] Magnesiumon 02-21-2019 Magnesium [Mass/Vol] 1.7 Int._Unit/L Normal 1.6-2.4 [facility] Comment on above: Performed By: #### 2 [id number] #### MARCUS Microbiology Subsection [facility] [place] [address] Morphon 02-21-2019 Polychromasia 1+ Normal [facility] Comment on above: Order Comment: Strai ght Cath as needed Performed By: #### 8 [id number] #### MARCUS Urinalysis Automated Subsection [facility] [place] [address] RBC morphology finding Nom (Bld) SEE MORPHOLOGY Normal [facility] Comment on above: Order Comment: Strai ght Cath as needed Performed By: #### 8 [id number] #### MARCUS Urinalysis Automated Subsection [facility] [place] [address] Teardrop Cell 1+ Normal [facility] Comment on above: Order Comment: Strai ght Cath as needed Performed By: #### 8 [id number] #### MARCUS Urinalysis Automated Subsection [facility] [place] [address] Salicylateon 02-21-2019 Salicylate Lvl <1.5 Low 4.0-20.0 [facility] Comment on above: Performed By: #### 2 [id number] #### MARCUS RemHemo [address] [place] [address] TSHon 02-21-2019 TSH Qn 4.82 mcIU/mL Normal 0.30-5.60 [facility] Comment on above: Order Comment: With T4fr Reflex Performed By: #### 2 [id number] #### MARCUS Microbiology Subsection [facility] [place] [id number] U BhCG Qlton 02-21-2019 HCG.beta subunit Qn Negative Normal Neg [facility] Comment on above: Performed By: #### 2 [id number] #### MARCUS Microbiology Subsection [address] [place] [address] U Creatinineon 02-21-2019 U Creatinine 31 mg/dL Normal 20-300 [facility] Comment on above: Performed By: #### 2 [id number] #### MARCUS RemHemo [address] [place] [address] U Proteinon 02-21-2019 Protein [Mass/Vol] 4 mg/dL Normal 1-[address] [facility] Comment on above: Performed By: #### 2 [id number] #### MARCUS RemHemo [address] [place] [address] U Sodiumon 02-21-2019 Sodium [Moles/Vol] 36 mmol/L Normal [facility] Comment on above: Performed By: #### 2 [id number] #### MARCUS Microbiology Subsection [address] [place] [address] UA Completeon 02-21-2019 Color (U) Straw Normal Yellow [facility] Comment on above: Order Comment: Strai ght Cath as needed Performed By: #### 2 [id number] #### MARCUS Microbiology Subsection [address] [place] [address] Glucose (U) [Mass/Vol] Negative Normal Negative [facility] Comment on above: Order Comment: Strai ght Cath as needed Performed By: #### 2 [id number] #### MARCUS Microbiology Subsection [facility]5 [place] [address] Ketones Ql (U) Negative Normal Negative [facility] Comment on above: Order Comment: Strai ght Cath as needed Performed By: #### 2 [id number] #### MARCUS Microbiology Subsection [facility]5 [place] [address] RBC (U) [#/Vol] 0-3 Normal 0-3 [facility] Comment on above: Order Comment: Strai ght Cath as needed Performed By: #### 2 [id number] #### MARCUS Microbiology Subsection [address] [place] [address] UA Blood Negative Normal Negative [facility] Comment on above: Order Comment: Strai ght Cath as needed Performed By: #### 2 [id number] #### MARCUS Microbiology Subsection [facility]5 [place] [address] UA Bacteria Trace Abnormal None [facility] Comment on above: Order Comment: Strai ght Cath as needed Performed By: #### 2 [id number] #### MARCUS Microbiology Subsection [facility] [place] [address] UA Clarity SltCloudy Abnormal Clear [facility] Comment on above: Order Comment: Strai ght Cath as needed Performed By: #### 2 [id number] #### MARCUS Microbiology Subsection [facility] [place] [address] UA Leuk Est 1+ Abnormal Negative [facility] Comment on above: Order Comment: Strai ght Cath as needed Performed By: #### 2 [id number] #### MARCUS Microbiology Subsection [address] [place] [address] UA Mucous Trace Abnormal Trace [facility] Comment on above: Order Comment: Strai ght Cath as needed Performed By: #### 2 [id number] #### MARCUS Microbiology Subsection [address] [place] [address] UA Nitrite Negative Normal Negative [facility] Comment on above: Order Comment: Strai ght Cath as needed Performed By: #### 2 [id number] #### MARCUS Microbiology Subsection [address] [place] [address] UA pH 5.0 Normal 4.6-8.0 [facility] Comment on above: Order Comment: Strai ght Cath as needed Performed By: #### 2 [id number] #### MARCUS Microbiology Subsection [address] [place] [address] UA Protein Negative Normal Negative [facility] Comment on above: Order Comment: Strai ght Cath as needed Performed By: #### 2 [id number] #### MARCUS Microbiology Subsection [address] [place] [address] UA Spec Grav 1.005 Normal 1.003-1.030 [facility] Comment on above: Order Comment: Strai ght Cath as needed Performed By: #### 2 [id number] #### MARCUS Microbiology Subsection [address] [place] [address] UA Squam Epithelial 5-10 Abnormal 0-5 [facility] Comment on above: Order Comment: Strai ght Cath as needed Performed By: #### 2 [id number] #### MARCUS Microbiology Subsection [address] [place] [address] UA Urobilinogen Negative Normal [facility] Comment on above: Order Comment: Strai ght Cath as needed Result Comment: Due to a manufacturing issue, low positive urobilinogen results may be fasely positive. Correlate with urine bilirubin and additional clinical/laboratory findings to assess the risk of hemolytic anemia or liver disease. If clinically indicated, repeat testing with an alternate method is available by contacting the laboratory within 24 hours. Performed By: #### 2 [id number] #### MARCUS Microbiology Subsection [facility] [place] [address] UA WBC 0-5 Normal 0-5 [facility] Comment on above: Order Comment: Strai ght Cath as needed Performed By: #### 2 140407 #### MARCUS Microbiology Subsection [address] [place] [address] Urobilinogen Qn (U) Negative Normal Negative [facility] Comment on above: Order Comment: Strai ght Cath as needed Performed By: #### 2 [id number] #### MARCUS Microbiology Subsection [address] [place] [address] Valproic Acidon 02-21-2019 Valpro Acid Lvl 102 microgram/mL Critically abnormal 50-100 [facility] Comment on above: Result Comment: Crit ical Result (s) Called to and read back by: XUAN GARCIA at: 02/21/2019 18:51:29 by:ZOFIA Performed By: #### 2 [id number] #### MARCUS RemHemo [address] [place] [address] Valpro Acid Lvl 101 microgram/mL Critically abnormal 50-100 [facility] Comment on above: Result Comment: Crit ical Result (s) Called to and read back by: XUAN GARCIA at: 02/21/2019 13:43:39 by:RAY Performed By: #### 2 [id number] #### MARCUS Microbiology Subsection [address] [place] [address] eGFRon 02-21-2019 GFR/1.73 sq M predicted among non-blacks MDRD (S/P/Bld) [Vol rate/Area] 49 mL/min/1.73 m2 [facility] Comment on above: Order Comment: Strai ght Cath as needed Performed By: #### 8 [id number] #### MARCUS Urinalysis Automated Subsection [facility] [place] [address] GFR/1.73 sq M predicted among non-blacks MDRD (S/P/Bld) [Vol rate/Area] 40 mL/min/1.73 m2 [facility] Comment on above: Order Comment: Strai ght Cath as needed Performed By: #### 8 [id number] #### MARCUS Urinalysis Automated Subsection [facility] [place] [address] zzplt morphon 02-21-2019 Platelet morphology finding Nom (Bld) ENLARGED [facility] Comment on above: Performed By: #### 8 [id number] #### MARCUS Urinalysis Automated Subsection [facility] [place] [address] Platelets (Bld) [#/Vol] DECREASED [facility] Comment on above: Performed By: #### 8 [id number] #### MARCUS Urinalysis Automated Subsection [facility] [place] [id number] [place] Myocardial Perfusion Stud y Single - Stress Onlyon 12-26-2018 Nuclear Report _ Patient: PABLO BENAVIDEZ [facility] Rec#: [id number] (Age): 1975(43y) Height: Study Date: 12/26/2018 Weight: Room#: BSA: Type: Outpatient Loc: Sex: F _ Indications: -Chest pain, other 786.59 - Checklists: -Patient verbally identified self -Consent signed and placed in chart -Procedure verified and explained to patient -Medication Reconciliation completed. -Discharge instructions given Nuclear Cardiology Conclusion: Overall intermediate-risk study based on SCAI criteria (1-3% predicted annual cardiac mortality). Normal stress regadenoson myocardial perfusion study. Normal LV size. Global left ventricular systolic function was normal, with an EF of 59%. Stress ECG Conclusion: Normal pharmacologic dobutamine stress ECG with no ECG changes consistent with ischemia. HR Response to stress: normal BP response to stress: normal The patient experienced no chest pain. The test was terminated due to completion of vasodilator infusion. Baseline ECG: Normal ECG. Pharmacologic Protocol: - Tolerated Medication Infusion - Tolerated Medication Infusion. Stress ECG : No ST-segment depression under pharmacologic stress. Recovery ECG: No significant ST changes. No chest pain. Rare PVC. Normal blood pressure response. Hemodynamics REST STRESS RECOVERY SBP [...] nuclear myocardial perfusion imaging was normal. No rest imaging was performed. The stress nuclear myocardial perfusion imaging was normal. No resting imaging was performed. Wall Motion Interpretation: The patient's calculated post stress LVEF was 59%. Gated imaging under post-stress conditions demonstrated normal wall motion. Nuclear Doctor Interpreted Study and Electronically signed at 12/26/2018 14:58:38 by: Zeke Onofre MD, RVPI [facility] Interface, Rad [facility] - 12/26/2018 3:48 PM EDT Nuclear Report _ Patient: PABLO BENAVIDEZ Med Rec#: [id number] (Age): 1975(43y) Height: Study Date: 12/26/2018 Weight: Room#: BSA: Type: Outpatient Loc: Sex: F _ Indications: -Chest pain, other 786.59 - Checklists: -Patient verbally identified self -Consent signed and placed in chart -Procedure verified and explained to patient -Medication Reconciliation completed. -Discharge instructions given Nuclear Cardiology Conclusion: Overall intermediate-risk study based on SCAI criteria (1-3% predicted annual cardiac mortality). Normal stress regadenoson myocardial perfusion study. Normal LV size. Global left ventricular systolic function was normal, with an EF of 59%. Stress ECG Conclusion: Normal pharmacologic dobutamine stress ECG with no ECG changes consistent with ischemia. HR Response to stress: normal BP response to stress: normal The patient experienced no chest pain. The test was terminated due to completion of vasodilator infusion. Baseline ECG: Normal ECG. Pharmacologic Protocol: - Tolerated Medication Infusion - Tolerated Medication Infusion. Stress ECG : No ST-segment depression under pharmacologic stress. Recovery ECG: No significant ST changes. No chest pain. Rare PVC. Normal blood pressure response. Hemodynamics REST STRESS RECOVERY SBP [...] nuclear myocardial perfusion imaging was normal. No rest imaging was performed. The stress nuclear myocardial perfusion imaging was normal. No resting imaging was performed. Wall Motion Interpretation: The patient's calculated post stress LVEF was 59%. Gated imaging under post-stress conditions demonstrated normal wall motion. Nuclear Doctor Interpreted Study and Electronically signed at 12/26/2018 14:58:38 by: Zeke Onofre MD, PI [facility] Influenza A&B Agon 9 Influenzae A Ag Negative Normal Negative [facility] Comment on above: Result Comment: Test Performed by PCR Testing Performed By: #### 8 [id number] #### MARCUS Urinalysis Automated Subsection [address] [place] [id number] Influenzae B Ag Negative Normal Negative [facility] Comment on above: Result Comment: Test Performed by PCR Testing Performed By: #### 8 [id number] #### MARCUS Urinalysis Automated Subsection [address] [place] [id number] XR Chest 2 Viewson 9 XR Chest 2 Views Exam Date/Time: 12/21/2018 04:05 EST Reason for Exam: Cough Report STUDY: XR Chest 2 Views; 12/21/2018 4:05 am INDICATION: Cough. COMPARISON: 10/02/2018 ACCESSION NUMBER(S): [id number] ORDERING CLINICIAN: Bob Wick FINDINGS: No significant interval change. CARDIOMEDIASTINAL SILHOUETTE: Cardiomediastinal silhouette is stable in size and configuration. LUNGS: Postsurgical changes of hiatal hernia repair. No pulmonary consolidation, pleural effusion or pneumothorax. ABDOMEN: No remarkable upper abdominal findings. BONES: No acute osseous abnormality. IMPRESSION: No acute cardiopulmonary process. FINAL REPORT Dictated: 12/21/2018 4:49 am Nicole Anderson MD Signed (Electronic Signature): 12/21/2018 4:49 am Signed by: Nicole Anderson MD Technologist: TAMIKO Del Rio [facility] Auto Diffon 12-12-2018 Basophils (Bld) [#/Vol] 0.0 E3/mcL Normal 0.0-0.2 [facility] Comment on above: Order Comment: With T4fr Reflex Performed By: #### 2 [id number] #### MARCUS [employer] [address] [place] [id number] Basophils/100 WBC (Bld) 0.4 % Normal 0.0-2.0 [facility] Comment on above: Order Comment: With T4fr Reflex Performed By: #### 2 734756 #### MARCUS [facility] [address] [place] [address] Eos Absolute 0.0 E3/mcL Normal 0.0-0.7 [facility] Comment on above: Order Comment: With T4fr Reflex Performed By: #### 2 530364 #### MARCUS [facility] [address] [place] [address] Eosinophils/100 WBC (Bld) 0.1 % Normal 0.0-11.0 [facility] Comment on above: Order Comment: With T4fr Reflex Performed By: #### 2 594758 #### MARCUS [facility] [address] [place] [address] Lymphocytes (Bld) [#/Vol] 0.6 E3/mcL Low 1.2-3.4 [facility] Comment on above: Order Comment: With T4fr Reflex Performed By: #### 2 711189 #### MARCUS [employer] [address] [place] [address] Lymphocytes/100 WBC (Bld) 9.6 % Low 20.0-55.0 [facility] Comment on above: Order Comment: With T4fr Reflex Performed By: #### 2 729747 #### MARCUS [facility] [address] [place] [address] [place] Absolute 0.6 E3/mcL Normal 0.0-0.7 [facility] Comment on above: Order Comment: With T4fr Reflex Performed By: #### 2 117977 #### MARCUS [employer] [address] [place] [address] Monocytes/100 WBC (Bld) 9.4 % Normal 0.0-10.0 [facility] Comment on above: Order Comment: With T4fr Reflex Performed By: #### 2 360340 #### MARCUS [facility] [address] [place] [address] Neutro Absolute 5.0 E3/mcL Normal 1.4-6.5 [facility] Comment on above: Order Comment: With T4fr Reflex Performed By: #### 2 328322 #### MARCUS [facility] [address] [place] [address] Neutro Auto 80.5 % High 37.0-75.0 [facility] Comment on above: Order Comment: With T4fr Reflex Performed By: #### 2 073065 #### MARCUS [facility] [address] [place] [address] BMPon 12-12-2018 Anion gap [Moles/Vol] 16 mmol/L Normal 10-20 [facility] Comment on above: Performed By: #### 2 195255 #### MARCUS [facility] [address] [place] [address] Calcium [Mass/Vol] 9.5 mg/dL Normal 8.6-10.[address] [facility] Comment on above: Performed By: #### 2 688430 #### MARCUS [employer] [address] [place] [address] Chloride [Moles/Vol] 105 mmol/L Normal 98-[address] [facility] Comment on above: Performed By: #### 2 981250 #### MARCUS [employer] [address] [place] [address] CO2 [Moles/Vol] 20.0 mmol/L Low 21.0-32.0 [facility] Comment on above: Performed By: #### 2 631820 #### MARCUS [facility] [address] [place] [address] Creatinine [Mass/Vol] 1.6 mg/dL High 0.5-1.1 [facility] Comment on above: Performed By: #### 2 790245 #### MARCUS [facility] [address] [place] [address] Glucose [Mass/Vol] 150 mg/dL High 70-[address] [facility] Comment on above: Performed By: #### 2 856787 #### MARCUS [facility] [address] [place] [address] Potassium [Moles/Vol] 4.4 mmol/L Normal 3.5-5.3 [facility] Comment on above: Performed By: #### 2 129304 #### MARCUS [facility] [address] [place] [address] Sodium [Moles/Vol] 137 mmol/L Normal 136-[address] [facility] Comment on above: Performed By: #### 2 041094 #### MARCUS [facility] [address] [place] [address] Urea nitrogen [Mass/Vol] 27 mg/dL High 6-23 [facility] Comment on above: Performed By: #### 2 823397 #### MARCUS [employer] [facility] [place] [address] Urea nitrogen/Creatinine [Mass ratio] 16.9 ratio Normal 5.4-30.0 [facility] Comment on above: Performed By: #### 2 729669 #### MARCUS [employer] [facility]5 [place] [address] CBC w/ Auto Diffon Erythrocyte distribution width (RBC) [Ratio] 13.8 % Normal 11.5-14.5 [facility] Comment on above: Performed By: #### 2 428712 #### MARCUS [employer] [facility] [place] [address] Hematocrit (Bld) [Volume fraction] 44.1 % Normal 36.0-48.0 [facility] Comment on above: Performed By: #### 2 110780 #### MARCUS [employer] [facility] [place] [address] Hemoglobin (Bld) [Mass/Vol] 14.4 g/dL Normal 12.0-16.0 [facility] Comment on above: Performed By: #### 2 723714 #### MARCUS [employer] [address] [place] [address] MCH (RBC) [Entitic mass] 30.3 pg Normal 27.0-31.0 [facility] Comment on above: Performed By: #### 2 438059 #### MARCUS [employer] [address] [place] [address] MCHC (RBC) [Mass/Vol] 32.7 g/dL Low 33.0-37.0 [facility] Comment on above: Performed By: #### 2 540201 #### MARCUS [employer] [address] [place] [address] MCV (RBC) [Entitic vol] 92.9 fL Normal 78.0-100.0 [facility] Comment on above: Performed By: #### 2 837491 #### MARCUS [employer] [address] [place] [address] Platelet mean volume (Bld) [Entitic vol] 8.1 fL Normal 7.4-11.0 [facility] Comment on above: Performed By: #### 2 774799 #### MARCUS [employer] [address] [place] [address] Platelets (Bld) [#/Vol] 122 E3/mcL Low 130-400 [facility] Comment on above: Performed By: #### 2 238659 #### MARCUS [employer] [address] [place] [address] RBC (Bld) [#/Vol] 4.75 E6/mcL Normal 3.90-5.[address] [facility] Comment on above: Performed By: #### 2 451835 #### MARCUS [employer] [address] [place] [address] WBC (Bld) [#/Vol] 6.2 E3/mcL Normal 3.6-11.0 [facility] Comment on above: Performed By: #### 2 088141 #### MARCUS [employer] [address] [place] [address] Ethanolon 12-12-2018 Ethanol [Mass/Vol] mg/dL Normal <=[address] [facility] Comment on above: Performed By: #### 2 000353 #### MARCUS [employer] [address] [place] [address] Hep Func Panelon 12-12-2018 Albumin [Mass/Vol] 4.4 g/dL Normal 3.4-5.[address] [facility] Comment on above: Performed By: #### 2 816723 #### MARCUS [employer] [address] [place] [address] Albumin/Globulin [Mass ratio] 1.3 {ratio} Normal 1.1-1.9 [facility] Comment on above: Performed By: #### 2 494863 #### MARCUS [employer] [address] [place] [address] Alk Phos 69 Int._Unit/L Normal 33-110 [facility] Comment on above: Performed By: #### 2 728720 #### MARCUS [employer] [address] [place] [address] ALT [Catalytic activity/Vol] 34 Int._Unit/L Normal 7-45 [facility] Comment on above: Performed By: #### 2 018319 #### MARCUS Zelaya [facility] [place] [address] AST [Catalytic activity/Vol] 69 Int._Unit/L High 9-39 [facility] Comment on above: Performed By: #### 2 168777 #### MARCUS Wilcox[address] [address] Bili Direct 0.26 mg/dL Normal 0.00-0.30 [facility] Comment on above: Performed By: #### 2 367902 #### MARCUS Wilcox[address] [address] Bili Indirect 0.57 mg/dL Normal [facility] Comment on above: Result Comment: No e stablished ranges available for the indirect bilirubin Performed By: #### 2 851653 #### MARCUS Wilcox[address] [address] Bili Total 0.83 mg/dL Normal 0.00-1.20 [facility] Comment on above: Performed By: #### 2 060004 #### MARCUS Wilcox[address] [address] Globulin (S) [Mass/Vol] 3.0 g/dL Normal 2.0-4.0 [facility] Comment on above: Performed By: #### 2 306404 #### MARCUS Wilcox[address] [address] Protein [Mass/Vol] 7.7 g/dL Normal 6.4-8.[address] [facility] Comment on above: Performed By: #### 2 447460 #### MARCUS Wilcox[address] [address] Magnesiumon 12-12-2018 Magnesium [Mass/Vol] 2.0 mg/dL Normal 1.6-2.[address] [facility] Comment on above: Performed By: #### 2 711443 #### MARCUSShawn Wilcox[address] [address] Troponin-Ion 12-12-2018 Troponin I.cardiac [Mass/Vol] 0.01 ng/mL Normal .00-.03 [facility] Comment on above: Performed By: #### 2 273227 #### MARCUS [facility] [address] [place] [address] U Drug Screenon 12-12-2018 U Amph Scr Negative Normal Negative [facility] Comment on above: Performed By: #### 2 973881 #### MARCUS [facility] [address] [place] [address] U Kalyani Scr Negative Normal Negative [facility] Comment on above: Performed By: #### 2 803000 #### MARCUS [facility] [address] [place] [address] U Benzodia Scr Negative Normal Negative [facility] Comment on above: Performed By: #### 2 063635 #### MARCUS [facility] [address] [place] [address] U Cannab Scr Negative Normal Negative [facility] Comment on above: Performed By: #### 2 869530 #### MARCUS [facility] [address] [place] [address] U Cocaine Scr Negative Normal Negative [facility] Comment on above: Performed By: #### 2 276575 #### MARCUS [facility] [address] [place] [address] U Opiate Scr Negative Normal Negative [facility] Comment on above: Performed By: #### 2 742612 #### MARCUS [facility] [address] [place] [address] U PCP Scr Negative Normal Negative [facility] Comment on above: Performed By: #### 2 368628 #### MARCUS [facility] [address] [place] [address] UA Completeon 12-12-2018 Color (U) Minerva Abnormal Yellow [facility] Comment on above: Performed By: #### 2 606474 #### MARCUS [facility] [address] [place] [address] Glucose (U) [Mass/Vol] Negative Normal Negative [facility] Comment on above: Performed By: #### 2 867061 #### MARCUS [facility] [address] [place] [address] Ketones Ql (U) Trace Normal [facility] Comment on above: Performed By: #### 2 910185 #### MARCUS [facility] [address] [place] [address] RBC (U) [#/Vol] 3-5 Abnormal 0-3 [facility] Comment on above: Performed By: #### 2 471742 #### MARCUS [facility] [address] [place] [address] UA Blood 2+ Abnormal Negative [facility] Comment on above: Performed By: #### 2 686667 #### MARCUS [facility] [address] [place] [address] UA Clarity Cloudy Abnormal Clear [facility] Comment on above: Performed By: #### 2 388738 #### MARCUS [facility] [address] [place] [address] UA Hyal Cast 5-10 Abnormal 0-2 [facility] Comment on above: Performed By: #### 2 185225 #### MARCUS [facility] [address] [place] [address] UA Leuk Est 3+ Abnormal Negative [facility] Comment on above: Performed By: #### 2 006186 #### MARCUS [facility] [address] [place] [address] UA Nitrite Negative Normal Negative [facility] Comment on above: Performed By: #### 2 689576 #### MARCUS [facility] [address] [place] [address] UA pH 5.0 Normal 4.6-8.0 [facility] Comment on above: Performed By: #### 2 931926 #### MARCUS [facility] [address] [place] [address] UA Protein Negative Normal Negative [facility] Comment on above: Performed By: #### 2 065844 #### MARCUS [facility] [address] [place] [address] UA Spec Grav 1.020 Normal 1.003-1.030 [facility] Comment on above: Performed By: #### 2 442424 #### MARCUS [facility] [address] [place] [address] UA Squam Epithelial 20-30 Abnormal 0-5 [facility] Comment on above: Performed By: #### 2 031001 #### MARCUS [facility] [address] [place] [address] UA Urobilinogen 2.0 mg/dL Abnormal [facility] Comment on above: Result Comment: Due to a manufacturing issue, low positive urobilinogen results may be fasely positive. Correlate with urine bilirubin and additional clinical/laboratory findings to assess the risk of hemolytic anemia or liver disease. If clinically indicated, repeat testing with an alternate method is available by contacting the laboratory within 24 hours. Performed By: #### 2 [id number] #### MARCUS Zelaya [address] [place], [place] [address] UA WBC 10-20 Abnormal 0-5 [facility] Comment on above: Performed By: #### 2 844298 #### MARCUS Zelaya [address] [place] [address] Urobilinogen Qn (U) Negative Normal Negative [facility] Comment on above: Performed By: #### 2 310706 #### MARCUS Zelaya [address] [place], [place] [address] eGFRon 12-12-2018 GFR/1.73 sq M predicted among non-blacks MDRD (S/P/Bld) [Vol rate/Area] 42 mL/min/1.73 m2 Normal [facility] Comment on above: Order Comment: With T4fr Reflex Performed By: #### 2 [id number] #### [place] [address] GFR/1.73 sq M predicted among non-blacks MDRD (S/P/Bld) [Vol rate/Area] 35 mL/min/1.73 m2 Normal [facility] Comment on above: Order Comment: With T4fr Reflex Performed By: #### 2 138971 #### MARCUS [employer] [address] [place], [place] [address] Auto Diffon 12-03-2018 Basophils (Bld) [#/Vol] 0.0 E3/mcL Normal 0.0-0.2 [facility] Comment on above: Order Comment: Order added by Discern Expert. Performed By: #### 1 [id number] #### MARCUS [employer] [address] [place], [place] [address] Basophils/100 WBC (Bld) 0.6 % Normal 0.0-2.0 [facility] Comment on above: Order Comment: Order added by Discern Expert. Performed By: #### 1 [id number] #### MARCUS [employer] [address] [place] [address] Eos Absolute 0.1 E3/mcL Normal 0.0-0.7 [facility] Comment on above: Order Comment: Order added by Discern Expert. Performed By: #### 1 [id number] #### MARCUS [facility] [address] [place] [address] Eosinophils/100 WBC (Bld) 2.6 % Normal 0.0-11.0 [facility] Comment on above: Order Comment: Order added by Discern Expert. Performed By: #### 1 [id number] #### MARCUS [employer] [address] [place] [address] Lymphocytes (Bld) [#/Vol] 1.2 E3/mcL Normal 1.2-3.4 [facility] Comment on above: Order Comment: Order added by Discern Expert. Performed By: #### 1 [id number] #### [address] [address] Lymphocytes/100 WBC (Bld) 27.2 % Normal 20.0-55.0 [facility] Comment on above: Order Comment: Order added by Discern Expert. Performed By: #### 1 [id number] #### MARCUS [employer] [address] [place] [address] [place] Absolute 0.3 E3/mcL Normal 0.0-0.7 [facility] Comment on above: Order Comment: Order added by Discern Expert. Performed By: #### 1 [id number] #### [facility] [address] [place] [address] Monocytes/100 WBC (Bld) 7.7 % Normal 0.0-10.0 [facility] Comment on above: Order Comment: Order added by Discern Expert. Performed By: #### 1 [id number] #### MARCUS [employer] [address] [place] [address] Neutro Absolute 2.8 E3/mcL Normal 1.4-6.5 [facility] Comment on above: Order Comment: Order added by Discern Expert. Performed By: #### 1 [id number] #### MARCUS [employer] [address] [place] [address] Neutro Auto 61.9 % Normal 37.0-75.0 [facility] Comment on above: Order Comment: Order added by Discern Expert. Performed By: #### 1 [id number] #### MARCUS Zelaya [facility]5 [place] [address] CBC w/ Auto Diffon Erythrocyte distribution width (RBC) [Ratio] 12.9 % Normal 11.5-14.5 [facility] Comment on above: Performed By: #### 1 [id number] #### MARCUS Zelaya [facility]5 [place] [address] Hematocrit (Bld) [Volume fraction] 42.4 % Normal 36.0-48.0 [facility] Comment on above: Performed By: #### 1 [id number] #### MARCUS [place] [address] [place] [address] Hemoglobin (Bld) [Mass/Vol] 14.1 g/dL Normal 12.0-16.0 [facility] Comment on above: Performed By: #### 1 [id number] #### MARCSU [employer] [address] [place] [address] MCH (RBC) [Entitic mass] 30.5 pg Normal 27.0-31.0 [facility] Comment on above: Performed By: #### 1 [id number] #### MARCUS [address] [address] MCHC (RBC) [Mass/Vol] 33.3 g/dL Normal 33.0-37.0 [facility] Comment on above: Performed By: #### 1 [id number] #### MARCUS [employer] [facility]5 [place] [address] MCV (RBC) [Entitic vol] 91.5 fL Normal 78.0-100.0 [facility] Comment on above: Performed By: #### 1 [id number] #### MARCUS [employer] [facility]5 [place] [address] Platelet mean volume (Bld) [Entitic vol] 7.2 fL Low 7.4-11.0 [facility] Comment on above: Performed By: #### 1 [id number] #### MARCUS [employer] [facility]5 [place] [address] Platelets (Bld) [#/Vol] 121 E3/mcL Low 130-400 [facility] Comment on above: Performed By: #### 1 [id number] #### MARCUSShawn Zelaya [facility]5 [place] [address] RBC (Bld) [#/Vol] 4.64 E6/mcL Normal 3.90-5.[address] [facility] Comment on above: Performed By: #### 1 [id number] #### MARCUSSahwn Zelaya [facility]5 [place] [address] WBC (Bld) [#/Vol] 4.5 E3/mcL Normal 3.6-11.0 [facility] Comment on above: Performed By: #### 1 [id number] #### MARCUSShawn [employer] [facility]5 [place] [address] CMPon 12-03-2018 Albumin [Mass/Vol] 3.6 g/dL Normal 3.4-5.[address] [facility] Comment on above: Performed By: #### 1 [id number] #### MARCUSShawn [employer] [facility]5 [place] [address] Albumin/Globulin [Mass ratio] 1.5 {ratio} Normal 1.1-1.9 [facility] Comment on above: Performed By: #### 1 [id number] #### MARCUSShawn [employer]Chem [facility]5 [place] [address] Alk Phos 69 Int._Unit/L Normal 33-110 [facility] Comment on above: Performed By: #### 1 [id number] #### MARCUSShawn [employer] [address] [place] [address] ALT [Catalytic activity/Vol] 13 Int._Unit/L Normal 7-45 [facility] Comment on above: Performed By: #### 1 [id number] #### MARCUS [employer] [address] [place] [address] Anion gap [Moles/Vol] 12 mmol/L Normal 10-20 [facility] Comment on above: Performed By: #### 1 [id number] #### MARCUSShawn [employer] [address] [place] [address] AST [Catalytic activity/Vol] 19 Int._Unit/L Normal 9-39 [facility] Comment on above: Performed By: #### 1 [id number] #### MARCUS [employer] [address] [place] [address] Bili Total 0.35 mg/dL Normal 0.00-1.20 [facility] Comment on above: Performed By: #### 1 [id number] #### MARCUS [employer] [address] [place] [address] Calcium [Mass/Vol] 8.3 mg/dL Low 8.6-10.[address] [facility] Comment on above: Performed By: #### 1 [id number] #### MARCUS [employer] [address] [place] [address] Chloride [Moles/Vol] 110 mmol/L High 98-[address] [facility] Comment on above: Performed By: #### 1 [id number] #### MARCUS [employer] [address] [place] [address] CO2 [Moles/Vol] 22.0 mmol/L Normal 21.0-32.0 [facility] Comment on above: Performed By: #### 1 [id number] #### MARCUS [employer] [address] [place] [address] Creatinine [Mass/Vol] 1.3 mg/dL High 0.5-1.1 [facility] Comment on above: Performed By: #### 1 [id number] #### MARCUS [employer] [address] [place] [address] Globulin (S) [Mass/Vol] 2.0 g/dL Normal 2.0-4.0 [facility] Comment on above: Performed By: #### 1 [id number] #### MARCUS [employer] [address] [place] [address] Glucose [Mass/Vol] 133 mg/dL High 70-[address] [facility] Comment on above: Performed By: #### 1 [id number] #### MARCUS [employer] [address] [place] [address] Potassium [Moles/Vol] 4.2 mmol/L Normal 3.5-5.3 [facility] Comment on above: Performed By: #### 1 [id number] #### MARCUS [employer] [address] [place] [address] Protein [Mass/Vol] 6.0 g/dL Low 6.4-8.[address] [facility] Comment on above: Performed By: #### 1 [id number] #### MARCUS [employer] [address] [place] [address] Sodium [Moles/Vol] 140 mmol/L Normal 136-[address] [facility] Comment on above: Performed By: #### 1 [id number] #### MARCUS [employer] [address] [place] [address] Urea nitrogen [Mass/Vol] 9 mg/dL Normal 6-23 [facility] Comment on above: Performed By: #### 1 [id number] #### MARCUS [employer] [address] [place] [address] Urea nitrogen/Creatinine [Mass ratio] 6.9 ratio Normal 5.4-30.0 [facility] Comment on above: Performed By: #### 1 [id number] #### MARCUS [employer] [address] [place] [address] CT Abdomen/Pelvis w/o Contra ston 12-03-2018 CT Abdomen/Pelvis w/o Contrast Exam Date/Time: 12/03/2018 00:08 EST Reason for Exam: Pain Report STUDY: CT Abdomen/Pelvis w/o Contrast; 12/03/2018 12:08 am INDICATION: Pain. COMPARISON: 09/22/2018 ACCESSION NUMBER(S): [id number] ORDERING CLINICIAN: Heidy Lane TECHNIQUE: Axial noncontrast CT images of the abdomen and pelvis with coronal and sagittal reconstructed images. FINDINGS: No significant interval change. LOWER CHEST: Bibasilar atelectasis/scar. BONES: No acute osseous abnormality. ABDOMINAL WALL: Small fat containing umbilical hernia. Injection granuloma left buttock. Soft tissue stranding right buttock likely represent injection site. ABDOMEN: Lack of intravenous contrast limits evaluation of vessels and solid organs. LIVER: Within normal limits. BILE DUCTS: Normal caliber. GALLBLADDER: No calcified gallstones. No wall thickening. PANCREAS: Within normal limits. SPLEEN: Within normal limits. ADRENALS: Within normal limits. KIDNEYS, URETERS, URINARY BLADDER: Within normal limits. VESSELS: No aortic aneurysm. RETROPERITONEUM: No pathologically enlarged lymph nodes. PELVIS: REPRODUCTIVE ORGANS: No visualized pelvic mass or significant free pelvic fluid. Intrauterine device. BOWEL: No dilated bowel. Normal appendix. Gastric band. Exam Date/Time: 12/03/2018 00:08 EST Report PERITONEUM: No ascites or free air, no fluid collection. IMPRESSION: No acute abdominal or pelvic process. FINAL REPORT Dictated: 12/03/2018 1:34 am Nicole Anderson MD Signed (Electronic Signature): 12/03/2018 1:34 am Signed by: Nicole Anderson MD Technologist: JACKSON Normal [facility] Lipase Levelon 12-03-2018 Lipase Lvl 38 Int._Unit/L Normal [facility] Comment on above: Performed By: #### 1 [id number] #### MARCUS [employer] [facility]5 [place] [address] U BhCG Qlton 12-03-2018 HCG.beta subunit Qn Negative Normal Neg [facility] Comment on above: Performed By: #### 1 [id number] #### MARCUS [employer] [facility]5 [place] [address] UA Completeon 12-03-2018 Color (U) Yellow Normal Yellow [facility] Comment on above: Performed By: #### 1 [id number] #### MARCUS [employer] [address] [place] [address] Glucose (U) [Mass/Vol] Negative Normal Negative [facility] Comment on above: Performed By: #### 1 [id number] #### MARCUS [employer] [address] [place] [address] Ketones Ql (U) Negative Normal Negative [facility] Comment on above: Performed By: #### 1 [id number] #### MARCUS [employer] [facility]5 [place] [address] RBC (U) [#/Vol] 3-5 Abnormal 0-3 [facility] Comment on above: Performed By: #### 1 [id number] #### MARCUS [employer] [address] [place] [address] UA Blood Negative Normal Negative [facility] Comment on above: Performed By: #### 1 [id number] #### MARCUS [employer] [address] [place] [address] UA Bacteria 1+ /HPF Abnormal None [facility] Comment on above: Performed By: #### 1 [id number] #### MARCUS [employer] [address] [place] [address] UA Clarity SltCloudy Abnormal Clear [facility] Comment on above: Performed By: #### 1 [id number] #### MARCUS [employer] [address] [place] [address] UA Leuk Est Trace Normal Negative [facility] Comment on above: Performed By: #### 1 [id number] #### MARCUS [employer] [facility]5 [place] [address] UA Nitrite Negative Normal Negative [facility] Comment on above: Performed By: #### 1 [id number] #### MARCUS [employer] [address] [place] [address] UA pH 6.0 Normal 4.6-8.0 [facility] Comment on above: Performed By: #### 1 [id number] #### MARCUS [employer] [facility]5 [place] [address] UA Protein Negative Normal Negative [facility] Comment on above: Performed By: #### 1 [id number] #### MARCUS [employer] [address] [place] [address] UA Spec Grav 1.016 Normal 1.003-1.030 [facility] Comment on above: Performed By: #### 1 [id number] #### MARCUS [employer] [address] [place] [address] UA Squam Epithelial 10-20 Abnormal 0-5 [facility] Comment on above: Performed By: #### 1 [id number] #### MARCUS [employer] [facility]5 [place] [address] UA Urobilinogen Negative Normal [facility] Comment on above: Result Comment: Due to a manufacturing issue, low positive urobilinogen results may be fasely positive. Correlate with urine bilirubin and additional clinical/laboratory findings to assess the risk of hemolytic anemia or liver disease. If clinically indicated, repeat testing with an alternate method is available by contacting the laboratory within 24 hours. Performed By: #### 1 [id number] #### MARCUS [employer] [address] [place] [address] UA WBC 5-10 Abnormal 0-5 [facility] Comment on above: Performed By: #### 1 [id number] #### MARCUS [employer] [facility]5 [place] [address] Urobilinogen Qn (U) Negative Normal Negative [facility] Comment on above: Performed By: #### 1 [id number] #### MARCUS [employer] [facility]5 [place] [address] eGFRon 12-03-2018 GFR/1.73 sq M predicted among non-blacks MDRD (S/P/Bld) [Vol rate/Area] 56 mL/min/1.73 m2 Normal [facility] Comment on above: Order Comment: Order added by Discern Expert. Performed By: #### 1 [id number] #### MARCUS [employer] [facility]5 [place] [address] GFR/1.73 sq M predicted among non-blacks MDRD (S/P/Bld) [Vol rate/Area] 46 mL/min/1.73 m2 Normal [facility] Comment on above: Order Comment: Order added by Discern Expert. Performed By: #### 1 [id number] #### MARCUS [employer] [address] [place] [address] Head or Brain w/ + w/o Co ntraston 12-01-2018 CT Head or Brain w/ + w/o Contrast Exam Date/Time: 12/01/2018 12:05 EST Reason for Exam: ABN GAIT Report STUDY: CT Head or Brain w/ + w/o Contrast; 12/01/2018 12:05 pm INDICATION: ABN GAIT. COMPARISON: 04/29/2016 ACCESSION NUMBER(S): [id number] ORDERING CLINICIAN: Ana Hodge TECHNIQUE: Axial images were obtained through the head prior to and following the intravenous administration of 100 cc of Omnipaque 350. FINDINGS: There is mild atrophy. Ventricles are unchanged in size and position. Hill-white differentiation is maintained there are some vague areas of decreased attenuation in the white matter, nonspecific, but commonly associated with small vessel ischemic disease. There is no mass effect or midline shift. No acute intracranial hemorrhage is identified. No extra-axial fluid collections are seen. No intraparenchymal mass lesions are identified. Following the intravenous administration of contrast, no abnormal enhancement is observed. No enhancing mass lesions are identified. Bone windows demonstrate no evidence of an acute calvarial fracture. There is mild mucosal thickening in the paranasal sinuses. IMPRESSION: No evidence of an acute intracranial process. FINAL REPORT Dictated: 12/01/2018 1:03 pm Andrey Sunshine MD Signed (Electronic Signature): 12/01/2018 1:03 pm Signed by: Andrey Sunshine MD Technologist: TRAVIS, Normal [facility] Rapid Strep A Screenon 11-27 S. pyogenes Ag IA Ql (Unsp spec) Negative [facility] Comment on above: Performed By: #### 1 [id number] #### MARCUS [employer] [address] [place] [address] Lipid Panelon 11-22-2018 Cholesterol in HDL mass conc 43 mg/dL 40 - 59 mg/dL [facility] Cholesterol in LDL mass conc 163 mg/dL High 10 - 150 mg/dL [facility] Cholesterol in VLDL mass conc 41 mg/dL High 5 - 40 mg/dL [facility] Cholesterol mass conc 247 mg/dL High 100 - 199 mg/dL [facility] Cholesterol.total/Cho lesterol in HDL mass ratio 5.7 {ratio} High [facility] Comment on above: Female Coronary Hear t Disease Risk Factor (CHDRF): Average risk= 4.4 1/2 Average risk= 3.3 2 times Average risk= 7.1 Interpretation and review of laboratory results Abnormal [facility] Triglyceride mass conc 206 mg/dL High 30 - 150 mg/dL [facility] Cholesterol in HDL mass conc 43 mg/dL Normal 40-59 [facility] Comment on above: Performed By: #### G LUX #### Unless otherwise noted, all testing performed by [place] [address] CLIA: [id number] Contact Center Manager: Ismael Torre M.D. Cholesterol in LDL mass conc 163 mg/dL High 10-150 [facility] Comment on above: Performed By: #### G LUX #### Unless otherwise noted, all testing performed by [place] [address] CLIA: [id number] Contact Center Manager: Ismael Torre M.D. Cholesterol in VLDL mass conc 41 mg/dL High 5-40 [facility] Comment on above: Performed By: #### G LUX #### Unless otherwise noted, all testing performed by [place] [address] CLIA: [id number] Contact Center Manager: Ismael Torre M.D. Cholesterol mass conc 247 mg/dL High 100-199 [facility] Comment on above: Performed By: #### G LUX #### Unless otherwise noted, all testing performed by [place] [phone] CLIA: [id number] Contact Center Manager: Ismael Torre M.D. Cholesterol.total/Cho lesterol in HDL mass ratio 5.7 {ratio} High 3.2-5.0 [facility] Comment on above: Result Comment: Hans smith Coronary Heart Disease Risk Factor (CHDRF): Average risk= 4.4 1/2 Average risk= 3.3 2 times Average risk= 7.1 Performed By: #### G LUX #### Unless otherwise noted, all testing performed by [place] [address] CLIA: [id number] Contact Center Manager: Ismael Torre M.D. Triglyceride mass conc 206 mg/dL High 30-150 [facility] Comment on above: Performed By: #### G LUX #### Unless otherwise noted, all testing performed by [place] [address] CLIA: [id number] Contact Center Manager: Ismael Torre M.D. Auto Diffon 11-17-2018 Basophils (Bld) [#/Vol] 0.0 E3/mcL Normal 0.0-0.2 [facility] Comment on above: Order Comment: Order Added by Discern Expert. Performed By: #### 2 [id number] #### MARCUS [employer] [address] [place] [address] Basophils/100 WBC (Bld) 0.3 % Normal 0.0-2.0 [facility] Comment on above: Order Comment: Order Added by Discern Expert. Performed By: #### 2 [id number] #### MARCUS [employer] [address] [place] [address] Eos Absolute 0.1 E3/mcL Normal 0.0-0.7 [facility] Comment on above: Order Comment: Order Added by Discern Expert. Performed By: #### 2 [id number] #### MARCUS [employer] [address] [place] [address] Eosinophils/100 WBC (Bld) 2.4 % Normal 0.0-11.0 [facility] Comment on above: Order Comment: Order Added by Discern Expert. Performed By: #### 2 [id number] #### MARCUS [employer] [address] [place] [address] Lymphocytes (Bld) [#/Vol] 1.2 E3/mcL Normal 1.2-3.4 [facility] Comment on above: Order Comment: Order Added by Discern Expert. Performed By: #### 2 [id number] #### MARCUS [employer] [address] [place] [address] Lymphocytes/100 WBC (Bld) 27.6 % Normal 20.0-55.0 [facility] Comment on above: Order Comment: Order Added by Discern Expert. Performed By: #### 2 [id number] #### MARCUS [employer] [address] [place] [address] [place] Absolute 0.4 E3/mcL Normal 0.0-0.7 [facility] Comment on above: Order Comment: Order Added by Discern Expert. Performed By: #### 2 [id number] #### MARCUS [employer] [address] [place] [address] Monocytes/100 WBC (Bld) 8.8 % Normal 0.0-10.0 [facility] Comment on above: Order Comment: Order Added by Discern Expert. Performed By: #### 2 [id number] #### MARCUS [employer] [address] [place] [address], [place] [address] Neutro Absolute 2.5 E3/mcL Normal 1.4-6.5 [facility] Comment on above: Order Comment: Order Added by Discern Expert. Performed By: #### 2 [id number] #### MARCUS [facility] [address] [place] [address] Neutro Auto 60.4 % Normal 37.0-75.0 [facility] Comment on above: Order Comment: Order Added by Discern Expert. Performed By: #### 2 [id number] #### MARCUS [facility] [address] [place] [address] BMPon 11-17-2018 Anion gap [Moles/Vol] 11 mmol/L Normal 10-20 [facility] Comment on above: Performed By: #### 2 [id number] #### MARCUS [employer] [facility]5 [place] [address] Calcium [Mass/Vol] 8.7 mg/dL Normal 8.6-10.[address] [facility] Comment on above: Performed By: #### 2 [id number] #### MARCUS [employer] [facility]5 [place] [address] Chloride [Moles/Vol] 108 mmol/L High 98-[address] [facility] Comment on above: Performed By: #### 2 [id number] #### MARCUS [employer] [address] [place] [address] CO2 [Moles/Vol] 21.0 mmol/L Normal 21.0-32.0 [facility] Comment on above: Performed By: #### 2 [id number] #### MARCUS [employer] [address] [place] [address] Creatinine [Mass/Vol] 1.2 mg/dL High 0.5-1.1 [facility] Comment on above: Performed By: #### 2 [id number] #### MARCUS [employer] [address] [place] [address] Glucose [Mass/Vol] 103 mg/dL High 70-[address] [facility] Comment on above: Performed By: #### 2 [id number] #### MARCUSShawn [facility] [address] [place] [address] Potassium [Moles/Vol] 3.7 mmol/L Normal 3.5-5.3 [facility] Comment on above: Performed By: #### 2 [id number] #### MARCUS [employer] [address] [place] [address] Sodium [Moles/Vol] 136 mmol/L Normal 136-[address] [facility] Comment on above: Performed By: #### 2 [id number] #### MARCUS [employer] [address] [place] [address] Urea nitrogen [Mass/Vol] 15 mg/dL Normal 6-23 [facility] Comment on above: Performed By: #### 2 129395 #### MARCUS [employer] [address] [place] [address] Urea nitrogen/Creatinine [Mass ratio] 12.5 ratio Normal 5.4-30.0 [facility] Comment on above: Performed By: #### 2 [id number] #### MARCUS [employer] [facility]5 [place] [address] CBC w/ Auto Diffon Erythrocyte distribution width (RBC) [Ratio] 13.2 % Normal 11.5-14.5 [facility] Comment on above: Performed By: #### 2 [id number] #### MARCUS [employer] [address] [place] [address] Hematocrit (Bld) [Volume fraction] 41.0 % Normal 36.0-48.0 [facility] Comment on above: Performed By: #### 2 [id number] #### MARCUS [employer] [address] [place] [address] Hemoglobin (Bld) [Mass/Vol] 13.8 g/dL Normal 12.0-16.0 [facility] Comment on above: Performed By: #### 2 [id number] #### MARCUS [employer] [address] [place] [address] MCH (RBC) [Entitic mass] 30.9 pg Normal 27.0-31.0 [facility] Comment on above: Performed By: #### 2 [id number] #### MARCUS [employer] [address] [place] [address] MCHC (RBC) [Mass/Vol] 33.6 g/dL Normal 33.0-37.0 [facility] Comment on above: Performed By: #### 2 [id number] #### MARCUS [employer] [address] [place] [address] MCV (RBC) [Entitic vol] 91.9 fL Normal 78.0-100.0 [facility] Comment on above: Performed By: #### 2 [id number] #### MARCUS [employer] [address] [place] [address] Platelet mean volume (Bld) [Entitic vol] 7.6 fL Normal 7.4-11.0 [facility] Comment on above: Performed By: #### 2 [id number] #### MARCUS [employer] [address] [place] [address] Platelets (Bld) [#/Vol] 82 E3/mcL Low 130-400 [facility] Comment on above: Performed By: #### 2 [id number] #### MARCUS [employer] [address] [place] [address] RBC (Bld) [#/Vol] 4.46 E6/mcL Normal 3.90-5.[address] [facility] Comment on above: Performed By: #### 2 884312 #### MARCUS [employer] [address] [place] [address] WBC (Bld) [#/Vol] 4.2 E3/mcL Normal 3.6-11.0 [facility] Comment on above: Performed By: #### 2 [id number] #### MARCUS [employer] [address] [place] [address] Hep Func Panelon 11-17-2018 Albumin [Mass/Vol] 3.8 g/dL Normal 3.4-5.[address] [facility] Comment on above: Performed By: #### 2 [id number] #### MARCUS [employer] [address] [place] [address] Albumin/Globulin [Mass ratio] 1.8 {ratio} Normal 1.1-1.9 [facility] Comment on above: Performed By: #### 2 [id number] #### MARCUS [employer] [address] [place] [address] Alk Phos 59 Int._Unit/L Normal 33-110 [facility] Comment on above: Performed By: #### 2 [id number] #### MARCUS [address] [address] ALT [Catalytic activity/Vol] 18 Int._Unit/L Normal 7-45 [facility] Comment on above: Performed By: #### 2 [id number] #### MARUCS [place] [address] [place] [address] AST [Catalytic activity/Vol] 28 Int._Unit/L Normal 9-39 [facility] Comment on above: Performed By: #### 2 [id number] #### MARCUS [address] [address] Bili Direct 0.07 mg/dL Normal 0.00-0.30 [facility] Comment on above: Performed By: #### 2 528772 #### MARCUS [address] [address] Bili Indirect 0.38 mg/dL Normal [facility] Comment on above: Result Comment: No e stablished ranges available for the indirect bilirubin Performed By: #### 2 [id number] #### MARCUS [place] [id number] Bili Total 0.45 mg/dL Normal 0.00-1.20 [facility] Comment on above: Performed By: #### 2 618042 #### MARCUSShawn [address] [address] Globulin (S) [Mass/Vol] 2.0 g/dL Normal 2.0-4.0 [facility] Comment on above: Performed By: #### 2 [id number] #### MARCUSShawn [address] [address] Protein [Mass/Vol] 5.9 g/dL Low 6.4-8.[address] [facility] Comment on above: Performed By: #### 2 [id number] #### MARCUSShawn Wilcox[address] [address] Lipase Levelon 11-17-2018 Lipase Lvl 48 Int._Unit/L Normal 9-82 [facility] Comment on above: Performed By: #### 2 [id number] #### MARCUSShawn Wilcox[address] [address] Morphon 11-17-2018 RBC morphology finding Nom (Bld) NORMAL Normal [facility] Comment on above: Order Comment: Order Added by Discern Expert. Performed By: #### 2 [id number] #### MARCUS [employer] [address] [place] [address] U BhCG Qlton 11-17-2018 HCG.beta subunit Qn Negative Normal Neg [facility] Comment on above: Performed By: #### 2 [id number] #### MARCUS [employer] [address] [place] [address] UA Completeon 11-17-2018 Color (U) Straw Normal Yellow [facility] Comment on above: Performed By: #### 2 [id number] #### AMRCUS RemChem [address] [place] [address] Glucose (U) [Mass/Vol] Negative Normal Negative [facility] Comment on above: Performed By: #### 2 757035 #### MARCUS [employer] [address] [place] [address] Ketones Ql (U) Negative Normal Negative [facility] Comment on above: Performed By: #### 2 657199 #### MARCUS [employer] [address] [place] [address] UA Blood Negative Normal Negative [facility] Comment on above: Performed By: #### 2 800291 #### MARCUS [employer] [address] [place] [address] UA Clarity Clear Normal Clear [facility] Comment on above: Performed By: #### 2 709651 #### MARCUS [employer] [address] [place] [address] UA Leuk Est Negative Normal Negative [facility] Comment on above: Performed By: #### 2 397464 #### MARCUS [employer] [address] [place] [address] UA Nitrite Negative Normal Negative [facility] Comment on above: Performed By: #### 2 527625 #### MARCUS [employer] [address] [place] [address] UA pH 6.0 Normal 4.6-8.0 [facility] Comment on above: Performed By: #### 2 705528 #### MARCUS [employer] [address] [place] [address] UA Protein Negative Normal Negative [facility] Comment on above: Performed By: #### 2 689609 #### MARCUS [facility] [place] [address] UA Spec Grav 1.009 Normal 1.003-1.030 [facility] Comment on above: Performed By: #### 2 358006 #### MARCUS Rem[employer] [facility] [place] [address] UA Squam Epithelial 0-5 Normal 0-5 [facility] Comment on above: Performed By: #### 2 641767 #### MARCUS WilcoxChem [facility] [place] [address] UA Urobilinogen Negative Normal [facility] Comment on above: Result Comment: Due to a manufacturing issue, low positive urobilinogen results may be fasely positive. Correlate with urine bilirubin and additional clinical/laboratory findings to assess the risk of hemolytic anemia or liver disease. If clinically indicated, repeat testing with an alternate method is available by contacting the laboratory within 24 hours. Performed By: #### 2 713034 #### MARCUS [facility] [place] [address] UA WBC 0-5 Normal 0-5 [facility] Comment on above: Performed By: #### 2 718706 #### MARCUS [employer] [address] [place] [address] Urobilinogen Qn (U) Negative Normal Negative [facility] Comment on above: Performed By: #### 2 172472 #### MARCUS [employer] [address] [place] [address] eGFRon 11-17-2018 GFR/1.73 sq M predicted among non-blacks MDRD (S/P/Bld) [Vol rate/Area] 56 mL/min/1.73 m2 [facility] Comment on above: Order Comment: Order added by Discern Expert. Performed By: #### 2 [id number] #### MARCUS [employer] [address] [place] [address] GFR/1.73 sq M predicted among non-blacks MDRD (S/P/Bld) [Vol rate/Area] 46 mL/min/1.73 m2 [facility] Comment on above: Order Comment: Order added by Discern Expert. Performed By: #### 2 178989 #### MARCUS [employer] [address] [place] [address] zzplt morphon 11-17-2018 Platelet morphology finding Nom (Bld) ENLARGED Normal [facility] Comment on above: Performed By: #### 2 380503 #### MARCUS [employer] [address] [place] [address] Platelets (Bld) [#/Vol] DECREASED Normal [facility] Comment on above: Performed By: #### 2 844085 #### MARCUS [employer] [address] [place] [address] Lab Miscellaneouson 10-28-19 19 Status See Ref Lab Report Normal [facility] Comment on above: Performed By: #### 2 648842 #### MARCUS RemHemo [address] [place] [address] CBC w/ Auto Diffon Erythrocyte distribution width (RBC) [Ratio] 13.2 % Normal 11.5-14.5 [facility] Comment on above: Performed By: #### 2 940264 #### MARCUS RemHemo [address] [place] [address] Hematocrit (Bld) [Volume fraction] 44.4 % Normal 36.0-48.0 [facility] Comment on above: Performed By: #### 2 856970 #### MARCUS RemHemo [address] [place] [address] Hemoglobin (Bld) [Mass/Vol] 14.8 g/dL Normal 12.0-16.0 [facility] Comment on above: Performed By: #### 2 430917 #### MARCUS RemHemo [address] [place] [address] MCH (RBC) [Entitic mass] 30.7 pg Normal 27.0-31.0 [facility] Comment on above: Performed By: #### 2 302915 #### MARCUS RemHemo [address] [place] [address] MCHC (RBC) [Mass/Vol] 33.3 g/dL Normal 33.0-37.0 [facility] Comment on above: Performed By: #### 2 823669 #### MARCUS RemHemo [address] [place] [address] MCV (RBC) [Entitic vol] 92.1 fL Normal 78.0-100.0 [facility] Comment on above: Performed By: #### 2 349496 #### MARCUS RemHemo [address] [place] [address] Platelet mean volume (Bld) [Entitic vol] 7.8 fL Normal 7.4-11.0 [facility] Comment on above: Performed By: #### 2 573116 #### MARCUS RemHemo [address] [place] [address] Platelets (Bld) [#/Vol] 93 E3/mcL Low 130-400 [facility] Comment on above: Performed By: #### 2 240347 #### MARCUS RemHemo [address] [place] [address] RBC (Bld) [#/Vol] 4.82 E6/mcL Normal 3.90-5.[address] [facility] Comment on above: Performed By: #### 2 388920 #### MARCUS RemHemo [address] [place] [address] WBC (Bld) [#/Vol] 4.7 E3/mcL Normal 3.6-11.0 [facility] Comment on above: Performed By: #### 2 675169 #### MARCUS RemHemo [address] [place] [address] CMPon 10-26-2018 Albumin [Mass/Vol] 4.2 g/dL Normal 3.4-5.[address] [facility] Comment on above: Performed By: #### 2 764619 #### MARCUS RemHemo [address] [place] [address] Albumin/Globulin [Mass ratio] 1.6 {ratio} Normal 1.1-1.9 [facility] Comment on above: Performed By: #### 2 013659 #### MARCUS RemHemo [address] [place] [address] Alk Phos 66 Int._Unit/L Normal 33-110 [facility] Comment on above: Performed By: #### 2 911013 #### MARCUS WilcoxHemo [address] [place] [address] ALT [Catalytic activity/Vol] 22 Int._Unit/L Normal 7-45 [facility] Comment on above: Performed By: #### 2 075980 #### MARCUS WilcoxHemo [address] [place] [address] Anion gap [Moles/Vol] 12 mmol/L Normal 10-20 [facility] Comment on above: Performed By: #### 2 970382 #### MARCUS WilcoxHemo [address] [place] [address] AST [Catalytic activity/Vol] 33 Int._Unit/L Normal 9-39 [facility] Comment on above: Performed By: #### 2 556216 #### MARCUS WilcoxHemo [address] [place] [address] Bili Total 0.38 mg/dL Normal 0.00-1.20 [facility] Comment on above: Performed By: #### 2 765771 #### MARCUS WilcoxHemo [address] [place] [address] Calcium [Mass/Vol] 9.2 mg/dL Normal 8.6-10.[address] [facility] Comment on above: Performed By: #### 2 312321 #### MARCUS WilcoxHemo [address] [place] [address] Chloride [Moles/Vol] 110 mmol/L High 98-[address] [facility] Comment on above: Performed By: #### 2 225926 #### MARCUS RemHemo [address] [place] [address] CO2 [Moles/Vol] 24.0 mmol/L Normal 21.0-32.0 [facility] Comment on above: Performed By: #### 2 045161 #### MARCUS RemHemo [address] [place] [address] Creatinine [Mass/Vol] 1.5 mg/dL High 0.5-1.1 [facility] Comment on above: Performed By: #### 2 825288 #### MARCUS RemHemo [address] [place] [address] Globulin (S) [Mass/Vol] 3.0 g/dL Normal 2.0-4.0 [facility] Comment on above: Performed By: #### 2 605120 #### MARCUS WilcoxHemo [address] [place] [address] Glucose [Mass/Vol] 97 mg/dL Normal 70-[address] [facility] Comment on above: Performed By: #### 2 493924 #### MARCUS WilcoxHemo [address] [place] [address] Potassium [Moles/Vol] 4.9 mmol/L Normal 3.5-5.3 [facility] Comment on above: Performed By: #### 2 382549 #### MARCUS WilcoxHemo [address] [place] [address] Protein [Mass/Vol] 6.9 g/dL Normal 6.4-8.[address] [facility] Comment on above: Performed By: #### 2 120014 #### MARCUS WilcoxHemo [address] [place] [address] Sodium [Moles/Vol] 141 mmol/L Normal 136-[address] [facility] Comment on above: Performed By: #### 2 279013 #### MARCUS WilcoxHemo [address] [place] [address] Urea nitrogen [Mass/Vol] 17 mg/dL Normal 6-23 [facility] Comment on above: Performed By: #### 2 232613 #### MARCUS WilcoxHemo [address] [place] [address] Urea nitrogen/Creatinine [Mass ratio] 11.3 ratio Normal 5.4-30.0 [facility] Comment on above: Performed By: #### 2 640295 #### MARCUS WilcoxHemo [address] [place] [address] Lab Miscellaneouson 10-26-19 19 Test Name topamax Normal [facility] Comment on above: Performed By: #### 2 108169 #### MARCUS WilcoxHemo [address] [place] [address] Manual Diffon 10-26-2018 Band form neutrophils/100 WBC (Bld) 1 Normal 0-1 [facility] Comment on above: Order Comment: Order Added by Discern Expert. Performed By: #### 2 764935 #### MARCUS RemHemo [address] [place] [address] Basophil Man 0 % Normal 0-1 [facility] Comment on above: Order Comment: Order Added by Discern Expert. Performed By: #### 2 609123 #### MARCUS RemHemo [address] [place] [address] Eosinophils/100 WBC (Bld) 3 % Normal 0-5 [facility] Comment on above: Order Comment: Order Added by Discern Expert. Performed By: #### 2 940793 #### MARCUS RemHemo [address] [place] [address] Lymphocytes/100 WBC (Bld) 37 % Normal 14-48 [facility] Comment on above: Order Comment: Order Added by Discern Expert. Performed By: #### 2 544024 #### MARCUS RemHemo [address] [place] [address] Monocyte Man 8 % Normal 1-11 [facility] Comment on above: Order Comment: Order Added by Discern Expert. Performed By: #### 2 066966 #### MARCUS RemHemo [address] [place] [address] RBC morphology finding Nom (Bld) NORMAL Normal [facility] Comment on above: Order Comment: Order Added by Discern Expert. Performed By: #### 2 636269 #### MARCUS RemHemo [address] [place] [address] Segs Man 51 % Normal 37-75 [facility] Comment on above: Order Comment: Order Added by Discern Expert. Performed By: #### 2 204301 #### MARCUS RemHemo [address] [place] [address] Valproic Acidon 10-26-2018 Valpro Acid Lvl 91 microgram/mL Normal 50-[address] [facility] Comment on above: Performed By: #### 2 038389 #### MARCUS WilcoxHemo [address] [place] [address] eGFRon 10-26-2018 GFR/1.73 sq M predicted among non-blacks MDRD (S/P/Bld) [Vol rate/Area] 45 mL/min/1.73 m2 Normal [facility] Comment on above: Order Comment: Order Added by Discern Expert. Performed By: #### 2 694910 #### MARCUS JeriHemo [address] [place] [address] GFR/1.73 sq M predicted among non-blacks MDRD (S/P/Bld) [Vol rate/Area] 37 mL/min/1.73 m2 Normal [facility] Comment on above: Order Comment: Order Added by Discern Expert. Performed By: #### 2 112810 #### MARCUS JeriHemo [address] [place] [id number] zzplt morphon 10-26-2018 Platelet morphology finding Nom (Bld) NORMAL Normal [facility] Comment on above: Performed By: #### 2 533654 #### MARCUS JeriHemo [facility] [place] [id number] Platelets (Bld) [#/Vol] DECREASED Normal [facility] Comment on above: Performed By: #### 2 351336 #### MARCUS JeriHemo [address] [place] [id number] UA Completeon 10-14-2018 Color (U) Yellow Normal Yellow [facility] Comment on above: Performed By: #### 2 318422 #### MARCUS JeriHemo [address] [place] [id number] Glucose (U) [Mass/Vol] Negative Normal Negative [facility] Comment on above: Performed By: #### 2 316292 #### MARCUS JeriHemo [address] [place] [address] Ketones Ql (U) Negative Normal Negative [facility] Comment on above: Performed By: #### 2 838973 #### MARCUS JeriHemo [address] [place] [address] RBC (U) [#/Vol] 10-20 Abnormal 0-3 [facility] Comment on above: Performed By: #### 2 926670 #### MARCUS RemHemo [address] [place] [address] UA Blood Negative Normal Negative [facility] Comment on above: Performed By: #### 2 735047 #### MARCUS RemHemo [address] [place] [address] UA Clarity Cloudy Abnormal Clear [facility] Comment on above: Performed By: #### 2 430047 #### MARCUS RemHemo [address] [place] [address] UA Hyal Cast 5-10 Abnormal 0-2 [facility] Comment on above: Performed By: #### 2 574260 #### MARCUS RemHemo [address] [place] [address] UA Leuk Est 3+ Abnormal Negative [facility] Comment on above: Performed By: #### 2 576012 #### MARCUS RemHemo [address] [place] [address] UA Mucous Trace Abnormal Trace [facility] Comment on above: Performed By: #### 2 741049 #### MARCUS RemHemo [address] [place] [address] UA Nitrite Negative Normal Negative [facility] Comment on above: Performed By: #### 2 298100 #### MARCUS RemHemo [address] [place] [address] UA pH 7.0 Normal 4.6-8.0 [facility] Comment on above: Performed By: #### 2 880115 #### MARCUS RemHemo [address] [place] [address] UA Protein Negative Normal Negative [facility] Comment on above: Performed By: #### 2 012392 #### MARCUS RemHemo [address] [place] [address] UA Spec Grav 1.016 Normal 1.003-1.030 [facility] Comment on above: Performed By: #### 2 327591 #### MARCUS RemHemo [address] [place] [id number] UA Squam Epithelial >30 Abnormal 0-5 [facility] Comment on above: Performed By: #### 2 916738 #### MARCUS RemHemo [address] [place] [id number] UA Urobilinogen Negative Normal [facility] Comment on above: Result Comment: Due to a manufacturing issue, low positive urobilinogen results may be fasely positive. Correlate with urine bilirubin and additional clinical/laboratory findings to assess the risk of hemolytic anemia or liver disease. If clinically indicated, repeat testing with an alternate method is available by contacting the laboratory within 24 hours. Performed By: #### 2 [id number] #### MARCUS Kenyono [facility] [place] [id number] UA WBC 10-20 Abnormal 0-5 [facility] Comment on above: Performed By: #### 2 936866 #### MARCUS Kenyono [facility] [place] [id number] Urobilinogen Qn (U) Negative Normal Negative [facility] Comment on above: Performed By: #### 2 065805 #### MARCUS Kenyono [address] [place], [place] [id number] XR Spine Lumbosacral 2 or 3 Viewson 10-14-2018 XR Spine Lumbosacral 2 or 3 Views Exam Date/Time: 10/14/2018 15:28 EST Reason for Exam: Back pain Report STUDY: XR Spine Lumbosacral 2 or 3 Views; 10/14/2018 3:28 pm INDICATION: Back pain. COMPARISON: 01/21/2017 ACCESSION NUMBER(S): [id number] ORDERING CLINICIAN: Moi De La Cruz FINDINGS: 3 views of the lumbar spine including AP, lateral and lateral cone-down views were obtained. There is no acute fracture identified. The vertebral bodies are well aligned without evidence of subluxation. Mild disc space narrowing and tiny marginal osteophytes are present at the L2-3 level. Mild facet degenerative changes are seen in the lower lumbar spine. IMPRESSION: 1. No evidence of acute fracture. FINAL REPORT Dictated: 10/14/2018 3:39 pm Bhupinder Bridges MD Signed (Electronic Signature): 10/14/2018 3:39 pm Signed by: Bhupinder Bridges MD Technologist: [facility] Normal [facility] .Manual Abson 10-02-2018 Basophil Abs Man 0.0 10x3/ Normal 0.0-0.2 [facility] Comment on above: Order Comment: Order Added by Discern Expert. Performed By: #### 9 [id number] #### MARCUSShawn WilcoxHemo [facility] [place] [id number] Eos Abs Man 0.1 10x3/ Normal 0.0-0.5 [facility] Comment on above: Order Comment: Order Added by Discern Expert. Performed By: #### 9 [id number] #### MARCUS WilcoxHemo [address] [place] [address] Lymph Abs Man 2.0 10x3/ Normal 1.2-3.4 [facility] Comment on above: Order Comment: Order Added by Discern Expert. Performed By: #### 9 [id number] #### MARCUS WilcoxHemo [address] [place] [address] [place] Abs Man 0.5 10x3/ Normal 0.0-0.7 [facility] Comment on above: Order Comment: Order Added by Discern Expert. Performed By: #### 9 7082656 #### MARCUS WilcoxHemo [address] [place] [address] Segs Abs Man 2.3 10x3/ Normal 1.4-6.5 [facility] Comment on above: Order Comment: Order Added by Discern Expert. Performed By: #### 9 [id number] #### MARCUS WilcoxHemo [address] [place] [id number] BMPon 10-02-2018 Anion gap [Moles/Vol] 9 mmol/L Low 10-20 [facility] Comment on above: Performed By: #### 9 [id number] #### MARCUS WilcoxHemo [address] [place] [address] Calcium [Mass/Vol] 8.4 mg/dL Low 8.6-10.[address] [facility] Comment on above: Performed By: #### 9 1491877 #### MARCUS WilcoxHemo [address] [place] [address] Chloride [Moles/Vol] 111 mmol/L High 98-[address] [facility] Comment on above: Performed By: #### 9 [id number] #### MARCUS RemHemo [address] [place] [address] CO2 [Moles/Vol] 22.0 mmol/L Normal 21.0-32.0 [facility] Comment on above: Performed By: #### 9 [id number] #### MARCUS RemHemo [address] [place] [address] Creatinine [Mass/Vol] 1.3 mg/dL High 0.5-1.1 [facility] Comment on above: Performed By: #### 9 8494825 #### MARCUS RemHemo [address] [place] [address] Glucose [Mass/Vol] 88 mg/dL Normal 70-[address] [facility] Comment on above: Performed By: #### 9 [id number] #### MARCUS RemHemo [address] [place] [address] Potassium [Moles/Vol] 4.2 mmol/L Normal 3.5-5.3 [facility] Comment on above: Performed By: #### 9 5492900 #### MARCUS RemHemo [address] [place] [address] Sodium [Moles/Vol] 138 mmol/L Normal 136-[address] [facility] Comment on above: Performed By: #### 9 [id number] #### MARCUS RemHemo [address] [place] [address] Urea nitrogen [Mass/Vol] 16 mg/dL Normal 6-23 [facility] Comment on above: Performed By: #### 9 8638115 #### MARCUS RemHemo [address] [place] [address] Urea nitrogen/Creatinine [Mass ratio] 12.3 ratio Normal 5.4-30.0 [facility] Comment on above: Performed By: #### 9 [id number] #### MARCUS RemHemo [address] [place] [address] CBC w/ Auto Diffon 8 Erythrocyte distribution width (RBC) [Ratio] 13.1 % Normal 11.5-14.5 [facility] Comment on above: Performed By: #### 9 [id number] #### MARCUS RemHemo [address] [place] [address] Hematocrit (Bld) [Volume fraction] 40.9 % Normal 36.0-48.0 [facility] Comment on above: Performed By: #### 9 [id number] #### MARCUS RemHemo [address] [place] [address] Hemoglobin (Bld) [Mass/Vol] 13.7 g/dL Normal 12.0-16.0 [facility] Comment on above: Performed By: #### 9 [id number] #### MARCUS WilcoxHemo [address] [place] [address] MCH (RBC) [Entitic mass] 31.0 pg Normal 27.0-31.0 [facility] Comment on above: Performed By: #### 9 8098983 #### MARCUS WilcoxHemo [address] [place] [address] MCHC (RBC) [Mass/Vol] 33.7 g/dL Normal 33.0-37.0 [facility] Comment on above: Performed By: #### 9 [id number] #### MARCUS WilcoxHemo [facility] [place] [address] MCV (RBC) [Entitic vol] 92.1 fL Normal 78.0-100.0 [facility] Comment on above: Performed By: #### 9 7712565 #### MARCUS JeriHemo [facility] [place] [address] Platelet mean volume (Bld) [Entitic vol] 8.4 fL Normal 7.4-11.0 [facility] Comment on above: Performed By: #### 9 [id number] #### MARCUS WilcoxHemo [facility] [place] [address] Platelets (Bld) [#/Vol] 82 E3/mcL Low 130-400 [facility] Comment on above: Performed By: #### 9 [id number] #### MARCUS RemHemo [address] [place] [address] RBC (Bld) [#/Vol] 4.44 E6/mcL Normal 3.90-5.[address] [facility] Comment on above: Performed By: #### 9 0326806 #### MARCUS RemHemo [address] [place] [address] WBC (Bld) [#/Vol] 5.3 E3/mcL Normal 3.6-11.0 [facility] Comment on above: Performed By: #### 9 6995442 #### MARCUS WilcoxHemo [address] [place] [address] Magnesiumon 10-02-2018 Magnesium [Mass/Vol] 1.9 mg/dL Normal 1.6-2.[address] [facility] Comment on above: Performed By: #### 9 [id number] #### MARCUS WilcoxHemo [address] [place] [address] Manual Diffon 10-02-2018 Anisocytosis Ql (Bld) 2+ Normal [facility] Comment on above: Order Comment: Order Added by Discern Expert. Performed By: #### 9 [id number] #### MARCUS WilcoxHemo [address] [place] [address] Band form neutrophils/100 WBC (Bld) 6 High 0-1 [facility] Comment on above: Order Comment: Order Added by Discern Expert. Performed By: #### 9 [id number] #### MARCUS WilcoxHemo [address] [place] [address] Basophil Man 0 % Normal 0-1 [facility] Comment on above: Order Comment: Order Added by Discern Expert. Performed By: #### 9 [id number] #### MARCUS WilcoxHemo [address] [place] [address] Eosinophils/100 WBC (Bld) 1 % Normal 0-5 [facility] Comment on above: Order Comment: Order Added by Discern Expert. Performed By: #### 9 [id number] #### MARCUS WilcoxHemo [address] [place] [address] Lymphocytes/100 WBC (Bld) 37 % Normal 14-48 [facility] Comment on above: Order Comment: Order Added by Discern Expert. Performed By: #### 9 [id number] #### MARCUS WilcoxHemo [address] [place] [address] [employer] Man 3 % High 0-0 [facility] Comment on above: Order Comment: Order Added by Katya Expert. Performed By: #### 9 [id number] #### MARCUS RemHemo [address] [place] [address] Monocyte Man 10 % Normal 1-11 [facility] Comment on above: Order Comment: Order Added by Katya Expert. Performed By: #### 9 [id number] #### MARCUS RemHemo [address] [place] [address] Poikilocytosis 1+ Normal [facility] Comment on above: Order Comment: Order Added by Discern Expert. Performed By: #### 9 [id number] #### MARCUS WilcoxHemo [address] [place] [address] Polychromasia 1+ Normal [facility] Comment on above: Order Comment: Order Added by Discern Expert. Performed By: #### 9 [id number] #### MARCUS WilcoxHemo [address] [place] [id number] RBC morphology finding Nom (Bld) SEE MORPHOLOGY Normal [facility] Comment on above: Order Comment: Order Added by Discern Expert. Performed By: #### 9 [id number] #### MARCUS WilcoxHemo [facility] [place] [address] Segs Man 43 % Normal 37-75 [facility] Comment on above: Order Comment: Order Added by Discern Expert. Performed By: #### 9 [id number] #### MARCUS WilcoxHemo [address] [place] [address] PTon 10-02-2018 INR Coag (PPP) [Relative time] 1.1 {INR} Normal 1.0-1.2 [facility] Comment on above: Result Comment: INR Recommended Therapeuptic Ranges: Prophylaxis/treatment of DVT and PE?2.0-3.0 Prevention of systemic embolism?.2.0-3.0 Mechanical prosthetic values?2.5-3.5 CRITICAL VALUES?.>4.0 Performed By: #### 9 [id number] #### MARCUS WilcoxHemo [address] [place] [id number] PT Coag (PPP) [Time] 13.2 second(s) Normal 11.6-14.6 [facility] Comment on above: Performed By: #### 9 [id number] #### MARCUS WilcoxHemo [address] [place] [id number] PTTon 10-02-2018 aPTT Coag (Bld) [Time] 28.3 second(s) Normal 23.2-36.4 [facility] Comment on above: Performed By: #### 9 [id number] #### MARCUS [facility] [place] [address] PTT Control Ratioon 10-02-20 PTT Ratio 0.9 ratio Normal 0.8-1.2 [facility] Comment on above: Order Comment: Order added by Discern Expert. Performed By: #### 9 [id number] #### MARCUS Luong [address] [place], [place] [id number] Troponin-Ion 10-02-2018 Troponin I.cardiac [Mass/Vol] ng/mL Normal .00-.03 [facility] Comment on above: Performed By: #### 2 [id number] #### MARCUS Luong [address] [place] [address] Troponin I.cardiac [Mass/Vol] 0.01 ng/mL Normal .00-.03 [facility] Comment on above: Performed By: #### 9 [id number] #### MARCUS Luong [address] [place], [place] [address] XR Chest AP Portableon 10-02 XR Chest AP Portable Exam Date/Time: 10/02/2018 11:20 EST Reason for Exam: Chest pain Report STUDY: XR Chest AP Portable; 10/02/2018 11:20 am INDICATION: Chest pain. COMPARISON: 12/15/2017 ACCESSION NUMBER(S): [id number] ORDERING CLINICIAN: Moi De La Cruz FINDINGS: Surgical changes associated with prior hiatus hernia repair unchanged from prior. CARDIOMEDIASTINAL SILHOUETTE: Cardiomediastinal silhouette is normal in size and configuration. LUNGS: Lungs are clear. ABDOMEN: No remarkable upper abdominal findings. BONES: No acute osseous changes. IMPRESSION: 1. No evidence of acute cardiopulmonary process. FINAL REPORT Dictated: 10/02/2018 11:23 am Wilder Beth MD Signed (Electronic Signature): 10/02/2018 11:23 am Signed by: Wilder Beth MD Technologist: HLR Normal [facility] eGFRon 10-02-2018 GFR/1.73 sq M predicted among non-blacks MDRD (S/P/Bld) [Vol rate/Area] 53 mL/min/1.73 m2 Normal [facility] Comment on above: Order Comment: Order added by Discern Expert. Performed By: #### 9 [id number] #### MARCUS Luong [address] [place], [place] [address] GFR/1.73 sq M predicted among non-blacks MDRD (S/P/Bld) [Vol rate/Area] 44 mL/min/1.73 m2 Normal [facility] Comment on above: Order Comment: Order added by Discern Expert. Performed By: #### 9 [id number] #### MARUCS WilcoxHemo [address] [place] [address] C Urineon 09-24-2018 C Urine Final Report: Modera te Normal skin joe isolated Normal [facility] Comment on above: Performed By: #### 1 [id number] #### MARCUS WilcoxHemo [address] [place] [address] Auto Diffon 09-22-2018 Basophils (Bld) [#/Vol] 0.0 E3/mcL Normal 0.0-0.2 [facility] Comment on above: Order Comment: Order Added by Katya Expert. Performed By: #### 1 [id number] #### MARCUS [place] [id number] Basophils/100 WBC (Bld) 0.4 % Normal 0.0-2.0 [facility] Comment on above: Order Comment: Order Added by Katya Expert. Performed By: #### 1 [id number] #### MARCUS WilcoxHemo [address] [place] [address] Eos Absolute 0.1 E3/mcL Normal 0.0-0.7 [facility] Comment on above: Order Comment: Order Added by Discern Expert. Performed By: #### 1 [id number] #### MARCUS WilcoxHemo [address] [place], [place] [address] Eosinophils/100 WBC (Bld) 1.6 % Normal 0.0-11.0 [facility] Comment on above: Order Comment: Order Added by Katya Expert. Performed By: #### 1 [id number] #### MARCUS RemHemo [address] [place] [address] [place] [address] Lymphocytes (Bld) [#/Vol] 2.0 E3/mcL Normal 1.2-3.4 [facility] Comment on above: Order Comment: Order Added by Discern Expert. Performed By: #### 1 [id number] #### MARCUS RemHemo [address] [place] [address] Lymphocytes/100 WBC (Bld) 30.2 % Normal 20.0-55.0 [facility] Comment on above: Order Comment: Order Added by Discern Expert. Performed By: #### 1 [id number] #### MARCUS RemHemo [address] [place] [address] [place] Absolute 0.6 E3/mcL Normal 0.0-0.7 [facility] Comment on above: Order Comment: Order Added by Discern Expert. Performed By: #### 1 [id number] #### MARCUS RemHemo [address] [place] [address] Monocytes/100 WBC (Bld) 9.0 % Normal 0.0-10.0 [facility] Comment on above: Order Comment: Order Added by Discern Expert. Performed By: #### 1 [id number] #### MARCUS RemHemo [address] [place] [address] Neutro Absolute 3.9 E3/mcL Normal 1.4-6.5 [facility] Comment on above: Order Comment: Order Added by Discern Expert. Performed By: #### 1 [id number] #### MARCUS RemHemo [address] [place] [address] Neutro Auto 58.8 % Normal 37.0-75.0 [facility] Comment on above: Order Comment: Order Added by Discern Expert. Performed By: #### 1 [id number] #### MARCUS RemHemo [address] [place] [address] BMPon 09-22-2018 Anion gap [Moles/Vol] 12 mmol/L Normal 10-20 [facility] Comment on above: Performed By: #### 1 [id number] #### MARCUS RemHemo [address] [place] [address] Calcium [Mass/Vol] 9.4 mg/dL Normal 8.6-10.[address] [facility] Comment on above: Performed By: #### 1 [id number] #### MARCUS RemHemo [address] [place] [address] Chloride [Moles/Vol] 110 mmol/L High 98-[address] [facility] Comment on above: Performed By: #### 1 [id number] #### MARCUS RemHemo [address] [place] [address] CO2 [Moles/Vol] 22.0 mmol/L Normal 21.0-32.0 [facility] Comment on above: Performed By: #### 1 [id number] #### MARCUS RemHemo [address] [place] [address] Creatinine [Mass/Vol] 1.4 mg/dL High 0.5-1.1 [facility] Comment on above: Performed By: #### 1 [id number] #### MARCUS RemHemo [address] [place] [address] Glucose [Mass/Vol] 93 mg/dL Normal 70-[address] [facility] Comment on above: Performed By: #### 1 [id number] #### MARCUS RemHemo [address] [place] [address] Potassium [Moles/Vol] 4.7 mmol/L Normal 3.5-5.3 [facility] Comment on above: Performed By: #### 1 [id number] #### MARCUS RemHemo [address] [place] [address] Sodium [Moles/Vol] 139 mmol/L Normal 136-[address] [facility] Comment on above: Performed By: #### 1 [id number] #### MARCUS RemHemo [address] [place] [address] Urea nitrogen [Mass/Vol] 15 mg/dL Normal 6-23 [facility] Comment on above: Performed By: #### 1 [id number] #### MARCUS RemHemo [address] [place] [address] Urea nitrogen/Creatinine [Mass ratio] 10.7 ratio Normal 5.4-30.0 [facility] Comment on above: Performed By: #### 1 [id number] #### MARCUS RemHemo [address] [place] [address] CBC w/ Auto Diffon 8 Erythrocyte distribution width (RBC) [Ratio] 13.6 % Normal 11.5-14.5 [facility] Comment on above: Performed By: #### 2 [id number] #### MARCUS WilcoxHemo [facility] [place] [address] Hematocrit (Bld) [Volume fraction] 50.0 % High 36.0-48.0 [facility] Comment on above: Performed By: #### 2 [id number] #### MARCUS WilcoxHemo [facility] [place] [address] Hemoglobin (Bld) [Mass/Vol] 16.9 g/dL High 12.0-16.0 [facility] Comment on above: Performed By: #### 2 [id number] #### MARCUS WilcoxHemo [facility] [place] [id number] MCH (RBC) [Entitic mass] 31.0 pg Normal 27.0-31.0 [facility] Comment on above: Performed By: #### 2 [id number] #### MARCUS WilcoxHemo [address] [place] [address] MCHC (RBC) [Mass/Vol] 33.8 g/dL Normal 33.0-37.0 [facility] Comment on above: Performed By: #### 2 [id number] #### MARCUS WilcoxHemo [address] [place] [address] MCV (RBC) [Entitic vol] 91.7 fL Normal 78.0-100.0 [facility] Comment on above: Performed By: #### 2 [id number] #### MARCUS WilcoxHemo [facility] [place] [address] Platelet mean volume (Bld) [Entitic vol] 8.1 fL Normal 7.4-11.0 [facility] Comment on above: Performed By: #### 2 [id number] #### MARCUS WilcoxHemo [address] [place] [address] Platelets (Bld) [#/Vol] 123 E3/mcL Low 130-400 [facility] Comment on above: Performed By: #### 2 [id number] #### MARCUS WilcoxHemo [address] [place] [address] RBC (Bld) [#/Vol] 5.45 E6/mcL High 3.90-5.[address] [facility] Comment on above: Performed By: #### 2 [id number] #### MARCUS WilcoxHemo [address] [place] [address] WBC (Bld) [#/Vol] 6.6 E3/mcL Normal 3.6-11.0 [facility] Comment on above: Performed By: #### 2 [id number] #### MARCUS WilcoxHemo [address] [place] [address] CT Abdomen/Pelvis w/o Contra ston 09-22-2018 CT Abdomen/Pelvis w/o Contrast Exam Date/Time: 09/22/2018 18:11 EST Reason for Exam: Abdominal Pain;Other (please specify) Report STUDY: CT Abdomen/Pelvis w/o Contrast; 09/22/2018 6:11 pm INDICATION: Other (please specify). COMPARISON: CT dated 05/19/2018 ACCESSION NUMBER(S): [id number] ORDERING CLINICIAN: Shilpa Douglas TECHNIQUE: CT of the abdomen pelvis was performed without intravenous contrast. Multiplanar reconstruction was performed. FINDINGS: LOWER CHEST: Atelectatic changes or scarring in lung bases. BONES: No acute osseous abnormality. ABDOMINAL WALL: Within normal limits. ABDOMEN: Evaluation of solid organs is limited due to lack of intravenous contrast. LIVER: Within normal limits. BILE DUCTS: Normal caliber. GALLBLADDER: No calcified gallstones. No wall thickening. PANCREAS: Within normal limits. SPLEEN: Within normal limits. There is splenule anterior to the spleen. ADRENALS: Within normal limits. KIDNEYS and URETERS: Within normal limits. VESSELS: No aortic aneurysm. RETROPERITONEUM: No pathologically enlarged retroperitoneal lymph nodes. PELVIS: REPRODUCTIVE ORGANS: There is an IUD in place. Presumed functional cyst projecting in the left ovary. BLADDER: Within normal limits. BOWEL: There is a gastric band in the proximal stomach. Stomach is unremarkable. No dilated bowel. Normal appendix. PERITONEUM: No ascites or free air, no fluid collection. Exam Date/Time: 09/22/2018 18:11 EST Report IMPRESSION: 1. No CT evidence of acute process in the abdomen and pelvis. 2. No renal or ureteral stone. Normal appendix. FINAL REPORT Dictated: 09/22/2018 6:42 pm Devin Zimmer MD Signed (Electronic Signature): 09/22/2018 6:42 pm Signed by: Devin Zimmer MD Technologist: Eliane VILLALOBOS [facility] Hep Func Panelon 09-22-2018 Albumin [Mass/Vol] 4.7 g/dL Normal 3.4-5.[address] [facility] Comment on above: Performed By: #### 1 [id number] #### MARCUS WilcoxHemo [address] [place] [address] Albumin/Globulin [Mass ratio] 1.7 {ratio} Normal 1.1-1.9 [facility] Comment on above: Performed By: #### 1 [id number] #### MARCUS WilcoxHemo [facility] [place] [address] Alk Phos 67 Int._Unit/L Normal 33-110 [facility] Comment on above: Performed By: #### 1 [id number] #### MARCUS WilcoxHemo [address] [place] [address] ALT [Catalytic activity/Vol] 19 Int._Unit/L Normal 7-45 [facility] Comment on above: Performed By: #### 1 [id number] #### MARCUS WilcoxHemo [address] [place] [address] AST [Catalytic activity/Vol] 31 Int._Unit/L Normal 9-39 [facility] Comment on above: Performed By: #### 1 [id number] #### MARCUSShawn WilcoxHemo [address] [place] [address] Bili Direct 0.12 mg/dL Normal 0.00-0.30 [facility] Comment on above: Performed By: #### 1 [id number] #### MARCUSShawn WilcoxHemo [facility]5 [place] [address] Bili Indirect 0.53 mg/dL Normal [facility] Comment on above: Result Comment: No e stablished ranges available for the indirect bilirubin Performed By: #### 1 [id number] #### [facility] [place] [address] Bili Total 0.65 mg/dL Normal 0.00-1.20 [facility] Comment on above: Performed By: #### 1 [id number] #### MARCUSShawn WilcoxHemo [facility]5 [place] [address] Globulin (S) [Mass/Vol] 3.0 g/dL Normal 2.0-4.0 [facility] Comment on above: Performed By: #### 1 [id number] #### MARCUSShawn WilcoxHemo [facility] [place] [address] Protein [Mass/Vol] 7.4 g/dL Normal 6.4-8.[address] [facility] Comment on above: Performed By: #### 1 [id number] #### MARCUSShawn WilcoxHemo [address] [place] [address] Lipase Levelon 09-22-2018 Lipase Lvl 44 Int._Unit/L Normal [facility] Comment on above: Performed By: #### 1 [id number] #### MARCUSShawn WilcoxHemo [address] [place] [address] U BhCG [place] 09-22-2018 HCG.beta subunit Qn Negative Normal Neg [facility] Comment on above: Performed By: #### 1 [id number] #### MARCUSShawn WilcoxHemo [address] [place] [address] UA Completeon 09-22-2018 Color (U) Yellow Normal Yellow [facility] Comment on above: Performed By: #### 1 [id number] #### MARCUSShawn WilcoxHemo [facility] [place] [address] Glucose (U) [Mass/Vol] Negative Normal Negative [facility] Comment on above: Performed By: #### 1 [id number] #### MARCUSShawn WilcoxHemo [address] [place] [address] Ketones Ql (U) Negative Normal Negative [facility] Comment on above: Performed By: #### 1 [id number] #### MARCUSShawn WilcoxHemo [facility]5 [place] [address] RBC (U) [#/Vol] 20-50 Abnormal 0-3 [facility] Comment on above: Performed By: #### 1 [id number] #### MARCUSShawn WilcoxHemo [address] [place] [address] UA Blood Negative Normal Negative [facility] Comment on above: Performed By: #### 1 [id number] #### MARCUS RemHemo [address] [place] [address] UA Bacteria 2+ /HPF Abnormal None [facility] Comment on above: Performed By: #### 1 [id number] #### MARCUS RemHemo [address] [place] [address] UA Clarity Cloudy Abnormal Clear [facility] Comment on above: Performed By: #### 1 [id number] #### MARCUS RemHemo [address] [place] [address] UA Leuk Est 3+ Abnormal Negative [facility] Comment on above: Performed By: #### 1 [id number] #### MARCUS RemHemo [address] [place] [address] UA Mucous Trace Abnormal Trace [facility] Comment on above: Performed By: #### 1 [id number] #### MARCUS RemHemo [address] [place] [address] UA Nitrite Negative Normal Negative [facility] Comment on above: Performed By: #### 1 [id number] #### MARCUS RemHemo [address] [place] [address] UA pH 7.0 Normal 4.6-8.0 [facility] Comment on above: Performed By: #### 1 [id number] #### MARCUS RemHemo [address] [place] [address] UA Protein Negative Normal Negative [facility] Comment on above: Performed By: #### 1 [id number] #### MARCUS RemHemo [address] [place] [address] UA Spec Grav 1.014 Normal 1.003-1.030 [facility] Comment on above: Performed By: #### 1 [id number] #### MARCUS RemHemo [address] [place] [address] UA Squam Epithelial >30 Abnormal 0-5 [facility] Comment on above: Performed By: #### 1 [id number] #### MARCUS RemHemo [address] [place] [address] UA Urobilinogen Negative Normal [facility] Comment on above: Result Comment: Due to a manufacturing issue, low positive urobilinogen results may be fasely positive. Correlate with urine bilirubin and additional clinical/laboratory findings to assess the risk of hemolytic anemia or liver disease. If clinically indicated, repeat testing with an alternate method is available by contacting the laboratory within 24 hours. Performed By: #### 1 [id number] #### MARCUS RemHemo [address] [place] [id number] UA WBC 20-50 Abnormal 0-5 [facility] Comment on above: Performed By: #### 1 [id number] #### MARCUS RemHemo [address] [place] [address] Urobilinogen Qn (U) Negative Normal Negative [facility] Comment on above: Performed By: #### 1 [id number] #### MARCUS RemHemo [facility] [place] [address] eGFRon 09-22-2018 GFR/1.73 sq M predicted among non-blacks MDRD (S/P/Bld) [Vol rate/Area] 51 mL/min/1.73 m2 Normal [facility] Comment on above: Order Comment: Order Added by Discern Expert. Performed By: #### 1 [id number] #### MARCUS RemHemo [address] [place] [address] GFR/1.73 sq M predicted among non-blacks MDRD (S/P/Bld) [Vol rate/Area] 42 mL/min/1.73 m2 Normal [facility] Comment on above: Order Comment: Order Added by Discern Expert. Performed By: #### 1 [id number] #### MARCUS RemHemo [address] [place], [place] [address] C Urineon 08-16-2018 C Urine Final Report: Few Mi xed skin contaminants Normal [facility] Comment on above: Performed By: #### 2 [id number] #### MARCUS Microbiology Subsection [address] [place], [place] [address] UA Completeon 08-15-2018 Color (U) Yellow Normal Yellow [facility] Comment on above: Order Comment: Strai ght Cath as needed Performed By: #### 8 [id number] #### MARCUS Urinalysis Automated Subsection [address] [place], [place] [address] Glucose (U) [Mass/Vol] 1+ Abnormal Negative [facility] Comment on above: Order Comment: Strai ght Cath as needed Performed By: #### 8 [id number] #### MARCSU Urinalysis Automated Subsection [facility] [place] [address] Ketones Ql (U) Negative Normal Negative [facility] Comment on above: Order Comment: Strai ght Cath as needed Performed By: #### 8 [id number] #### MARCUS Urinalysis Automated Subsection [facility] [place] [address] RBC (U) [#/Vol] 0-3 Normal 0-3 [facility] Comment on above: Order Comment: Strai ght Cath as needed Performed By: #### 8 [id number] #### MARCUS Urinalysis Automated Subsection [facility] [place] [address] UA Blood Negative Normal Negative [facility] Comment on above: Order Comment: Strai ght Cath as needed Performed By: #### 8 [id number] #### MARCUS Urinalysis Automated Subsection [facility] [place] [address] UA Bacteria Trace Abnormal None [facility] Comment on above: Order Comment: Strai ght Cath as needed Performed By: #### 8 [id number] #### MARCUS Urinalysis Automated Subsection [facility] [place] [address] UA Clarity SltCloudy Abnormal Clear [facility] Comment on above: Order Comment: Strai ght Cath as needed Performed By: #### 8 [id number] #### MARCUS Urinalysis Automated Subsection [facility] [place] [address] UA Hyal Cast 0-2 Normal 0-2 [facility] Comment on above: Order Comment: Strai ght Cath as needed Performed By: #### 8 [id number] #### MARCUS Urinalysis Automated Subsection [address] [place] [address] UA Leuk Est 1+ Abnormal Negative [facility] Comment on above: Order Comment: Strai ght Cath as needed Performed By: #### 8 [id number] #### MARCUS Urinalysis Automated Subsection [facility] [place] [address] UA Mucous Trace Abnormal Trace [facility] Comment on above: Order Comment: Strai ght Cath as needed Performed By: #### 8 [id number] #### MARCUS Urinalysis Automated Subsection [facility] [place] [address] UA Nitrite Negative Normal Negative [facility] Comment on above: Order Comment: Strai ght Cath as needed Performed By: #### 8 [id number] #### MARCUS Urinalysis Automated Subsection [address] [place] [address] UA pH 7.0 Normal 4.6-8.0 [facility] Comment on above: Order Comment: Strai ght Cath as needed Performed By: #### 8 [id number] #### MARCUS Urinalysis Automated Subsection [facility] [place] [address] UA Protein Negative Normal Negative [facility] Comment on above: Order Comment: Strai ght Cath as needed Performed By: #### 8 [id number] #### MARCUS Urinalysis Automated Subsection [facility] [place] [address] UA Spec Grav 1.012 Normal 1.003-1.030 [facility] Comment on above: Order Comment: Strai ght Cath as needed Performed By: #### 8 [id number] #### MARCUS Urinalysis Automated Subsection [facility] [place] [address] UA Squam Epithelial 5-10 Abnormal 0-5 [facility] Comment on above: Order Comment: Strai ght Cath as needed Performed By: #### 8 [id number] #### MARCUS Urinalysis Automated Subsection [facility] [place] [address] UA Urobilinogen Negative Normal [facility] Comment on above: Order Comment: Strai ght Cath as needed Performed By: #### 8 [id number] #### MARUCS Urinalysis Automated Subsection [facility] [place] [address] UA WBC 10-20 Abnormal 0-5 [facility] Comment on above: Order Comment: Strai ght Cath as needed Performed By: #### 8 [id number] #### MARCUS Urinalysis Automated Subsection [facility] [place] [address] Urobilinogen Qn (U) Negative Normal Negative [facility] Comment on above: Order Comment: Strai ght Cath as needed Performed By: #### 8 [id number] #### MARCUS Urinalysis Automated Subsection [address] [place] [address] Auto Diffon 08-14-2018 Basophils (Bld) [#/Vol] 0.0 E3/mcL Normal 0.0-0.2 [facility] Comment on above: Order Comment: Order Added by Discern Expert. Performed By: #### 2 [id number] #### MARCUS RemHemo [address] [place] [address] Basophils/100 WBC (Bld) 0.7 % Normal 0.0-2.0 [facility] Comment on above: Order Comment: Order Added by Discern Expert. Performed By: #### 2 [id number] #### MARCUS RemHemo [address] [place] [address] Eos Absolute 0.1 E3/mcL Normal 0.0-0.7 [facility] Comment on above: Order Comment: Order Added by Discern Expert. Performed By: #### 2 [id number] #### MARCUS RemHemo [address] [place] [address] Eosinophils/100 WBC (Bld) 2.2 % Normal 0.0-11.0 [facility] Comment on above: Order Comment: Order Added by Discern Expert. Performed By: #### 2 [id number] #### MARCUS RemHemo [address] [place] [address] Lymphocytes (Bld) [#/Vol] 1.4 E3/mcL Normal 1.2-3.4 [facility] Comment on above: Order Comment: Order Added by Discern Expert. Performed By: #### 2 [id number] #### MARCUS RemHemo [address] [place] [address] Lymphocytes/100 WBC (Bld) 32.5 % Normal 20.0-55.0 [facility] Comment on above: Order Comment: Order Added by Discern Expert. Performed By: #### 2 [id number] #### MARCUS RemHemo [address] [place] [address] [place] Absolute 0.4 E3/mcL Normal 0.0-0.7 [facility] Comment on above: Order Comment: Order Added by Discern Expert. Performed By: #### 2 [id number] #### MARCUS RemHemo [address] [place] [address] Monocytes/100 WBC (Bld) 9.7 % Normal 0.0-10.0 [facility] Comment on above: Order Comment: Order Added by Discern Expert. Performed By: #### 2 [id number] #### MARCUS RemHemo [address] [place] [address] Neutro Absolute 2.3 E3/mcL Normal 1.4-6.5 [facility] Comment on above: Order Comment: Order Added by Discern Expert. Performed By: #### 2 [id number] #### MARCUS RemHemo [address] [place] [address] Neutro Auto 54.9 % Normal 37.0-75.0 [facility] Comment on above: Order Comment: Order Added by Discern Expert. Performed By: #### 2 [id number] #### MARCUS RemHemo [address] [place] [address] BMPon 08-14-2018 Anion gap [Moles/Vol] 13 mmol/L Normal 10-20 [facility] Comment on above: Performed By: #### 2 [id number] #### MARCUS [employer] [address] [place] [address] Calcium [Mass/Vol] 8.3 mg/dL Low 8.6-10.[address] [facility] Comment on above: Performed By: #### 2 [id number] #### MARCUS [employer] [address] [place] [address] Chloride [Moles/Vol] 110 mmol/L High 98-[address] [facility] Comment on above: Performed By: #### 2 [id number] #### MARCUS [employer] [address] [place] [address] CO2 [Moles/Vol] 21.0 mmol/L Normal 21.0-32.0 [facility] Comment on above: Performed By: #### 2 [id number] #### MARCUS [employer] [address] [place] [address] Creatinine [Mass/Vol] 1.3 mg/dL Normal 0.6-1.3 [facility] Comment on above: Performed By: #### 2 [id number] #### MARCUS [employer] [address] [place] [address] Glucose [Mass/Vol] 122 mg/dL High 70-[address] [facility] Comment on above: Performed By: #### 2 [id number] #### MARCUS [employer] [address] [place] [address] Potassium [Moles/Vol] 3.3 mmol/L Low 3.5-5.3 [facility] Comment on above: Performed By: #### 2 [id number] #### MARCUS [employer] [address] [place] [address] Sodium [Moles/Vol] 141 mmol/L Normal 136-[address] [facility] Comment on above: Performed By: #### 2 [id number] #### MARCUS [employer] [facility] [place] [address] Urea nitrogen [Mass/Vol] 13 mg/dL Normal 6-23 [facility] Comment on above: Performed By: #### 2 [id number] #### MARCUS [employer] [address] [place] [address] Urea nitrogen/Creatinine [Mass ratio] 10.0 ratio Normal 5.4-30.0 [facility] Comment on above: Performed By: #### 2 [id number] #### MARCUS [employer] [address] [place] [address] CBC w/ Auto Diffon 8 Erythrocyte distribution width (RBC) [Ratio] 13.2 % Normal 11.5-14.5 [facility] Comment on above: Performed By: #### 2 [id number] #### MARCUS Rem[employer] [address] [place] [address] Hematocrit (Bld) [Volume fraction] 42.1 % Normal 36.0-48.0 [facility] Comment on above: Performed By: #### 2 [id number] #### MARCUS RemHemo [address] [place] [address] Hemoglobin (Bld) [Mass/Vol] 14.1 g/dL Normal 12.0-16.0 [facility] Comment on above: Performed By: #### 2 [id number] #### MARCUS RemHemo [address] [place] [address] MCH (RBC) [Entitic mass] 30.8 pg Normal 27.0-31.0 [facility] Comment on above: Performed By: #### 2 [id number] #### MARCUS WilcoxHemo [address] [place] [address] MCHC (RBC) [Mass/Vol] 33.5 g/dL Normal 33.0-37.0 [facility] Comment on above: Performed By: #### 2 [id number] #### MARCUS WilcoxHemo [facility]5 [place] [address] MCV (RBC) [Entitic vol] 91.7 fL Normal 78.0-100.0 [facility] Comment on above: Performed By: #### 2 [id number] #### MARCUSShawn WilcoxHemo [facility]5 [place] [address] Platelet mean volume (Bld) [Entitic vol] 8.8 fL Normal 7.4-11.0 [facility] Comment on above: Performed By: #### 2 [id number] #### MARCUS WilcoxHemo [address] [place] [address] Platelets (Bld) [#/Vol] 78 E3/mcL Low 130-400 [facility] Comment on above: Performed By: #### 2 [id number] #### MARCUSShawn WilcoxHemo [address] [place] [address] RBC (Bld) [#/Vol] 4.60 E6/mcL Normal 3.90-5.[address] [facility] Comment on above: Performed By: #### 2 [id number] #### MARCUS WilcoxHemo [facility]5 [place] [address] WBC (Bld) [#/Vol] 4.2 E3/mcL Normal 3.6-11.0 [facility] Comment on above: Performed By: #### 2 828255 #### MARCUS RemHemo [address] [place] [address] Morphon 08-14-2018 Anisocytosis Ql (Bld) 1+ Normal [facility] Comment on above: Order Comment: Order Added by Discern Expert. Performed By: #### 1 [id number] #### MARCUS WilcoxHemo [address] [place] [address] RBC morphology finding Nom (Bld) SEE MORPHOLOGY Normal [facility] Comment on above: Order Comment: Order Added by Discern Expert. Performed By: #### 1 [id number] #### MARCUS WilcoxHemo [address] [place] [id number] TSHon 08-14-2018 TSH Qn 2.16 mcIU/mL Normal 0.30-5.60 [facility] Comment on above: Order Comment: With T4fr Reflex Performed By: #### 2 [id number] #### MARCUS [employer] [facility]5 [place] [address] eGFRon 08-14-2018 GFR/1.73 sq M predicted among non-blacks MDRD (S/P/Bld) [Vol rate/Area] 53 mL/min/1.73 m2 Normal [facility] Comment on above: Order Comment: Order added by Discern Expert. Performed By: #### 1 [id number] #### MARCUS [employer] [address] [place] [address] GFR/1.73 sq M predicted among non-blacks MDRD (S/P/Bld) [Vol rate/Area] 44 mL/min/1.73 m2 Normal [facility] Comment on above: Order Comment: Order added by Discern Expert. Performed By: #### 1 [id number] #### MARCUS [employer] [facility]5 [place] [id number] zzplt morphon 08-14-2018 Platelet morphology finding Nom (Bld) NORMAL Normal [facility] Comment on above: Performed By: #### 9 [id number] #### MARCUS WilcoxHemo [facility]5 [place] [id number] Platelets (Bld) [#/Vol] DECREASED Normal [facility] Comment on above: Performed By: #### 9 [id number] #### MARCUS WilcoxHemo [address] [place] [id number] Culture, Urineon 06-16-2018 Culture, Urine Test Name: Culture, Urine Culture Status: Final Culture Report: No significant growth. Micro Source: Urine - clean catch Normal [facility] Comment on above: Performed By: #### G LUX #### Unless otherwise noted, all testing performed by [facility] [address]. [place], [place] [address] CLIA: [id number] Contact Center Manager: Ismael Torre M.D. POC Urinalysis Dipstickon Bilirubin Ql (U) Negative Invalid Interpretation Code Negative [facility] [place] Glucose Ql (U) Negative Invalid Interpretation Code Normal, Negative mg/dL [facility] [place] Hemoglobin Test strip Ql (U) Large Abnormal Negative [facility] Interpretation and review of laboratory results Abnormal Invalid Interpretation Code [facility] Ketones Ql (U) Negative Invalid Interpretation Code Negative mg/dL [facility] Leukocyte esterase Test strip Ql (U) Small Abnormal Negative [facility] Nitrite Test strip Ql (U) Negative Invalid Interpretation Code Negative [facility] pH Test strip (U) 7.5 [pH] Abnormal [facility] Protein Test strip Ql (U) Trace Abnormal Negative mg/dL [facility] [place] Specific gravity Relative Density (U) 1.020 Invalid Interpretation Code [facility] [place] Urobilinogen Test strip Qn (U) 0.2 mg/dL Invalid Interpretation Code <2.0, 0.2, Normal, Negative, 1.0, 2.0, <1.0 [facility] [place] CURon 05-15-2018 CUR . MICRO - MicrobiologyPROCEDURE: Urine Culture [*1] Urine, Straight BODY SITE: CatherizedCOLLECTED DATE/TIME: 05/13/2018 22:15 EDT RECEIVED DATE/TIME: 05/14/2018 17:17 EDTSTART DATE/TIME: 05/14/2018 17:17 EDT FREE TEXT SOURCE:PRELIMINARY REPORTSPreliminary Report []Verified Date/Time/Personnel: 05/15/2018 14:09 EDTCulture results pending.Performing Locations*1: This test was performed at: [facility], [address] [place] [address], [id number] , [facility] ([place] Comment on above: Performed By: #### C BC, ADIFF, ANEU ####[place] [address] [place], [place] [address]#### LIP, CMP, GFR ####[address] [address] .GFRon 05-14-2018 GFR Non- 45 ml/min/1.73sqm Normal [facility] ([place]) Comment on above: Result Comment: GFR Population mean for , Non- Americans Ages 20-29 = 116 mL/min/1.73 sq.m. Ages 30-39 = 107 mL/min/1.73 sq.m. Ages 40-49 = 99 mL/min/1.73 sq.m. Ages 50-59 = 93 mL/min/1.73 sq.m. Ages 60-69 = 85 mL/min/1.73 sq.m. Ages 70+ = 75 mL/min/1.73 sq.m.Chronic Kidney Disease: Less than 60 mL/min/1.73 square metersEnd Stage Renal Disease: Less than 15 mL/min/1.73 square meters Performed By: #### C DESTINY SANDOVAL, ANEU ####[facility] [place] [place], [place] [address]#### LIP, CMP, GFR ####[place] [address] GFR 55 ml/min/1.73sqm Normal [facility] ([place]) Comment on above: Result Comment: GFR Population mean for , Non- Americans Ages 20-29 = 116 mL/min/1.73 sq.m. Ages 30-39 = 107 mL/min/1.73 sq.m. Ages 40-49 = 99 mL/min/1.73 sq.m. Ages 50-59 = 93 mL/min/1.73 sq.m. Ages 60-69 = 85 mL/min/1.73 sq.m. Ages 70+ = 75 mL/min/1.73 sq.m.Chronic Kidney Disease: Less than 60 mL/min/1.73 square metersEnd Stage Renal Disease: Less than 15 mL/min/1.73 square meters Performed By: #### C BCDESTINY, ANEU ####[facility] Cq[address] [place], [place] [address]#### LIP, CMP, GFR ####[place] [address] CMPon 05-14-2018 Alanine aminotransferase (ALT) 41 U/L High 10-35 [facility] ([place]) Comment on above: Performed By: #### C BC, ADIFF, ANEU ####[facility] [address] [place], [place] [address]#### LIP, CMP, GFR ####[address] [address] Albumin 3.4 G/dL Low 3.5-5.0 [facility] ([place]) Comment on above: Performed By: #### C BC, ADIFF, ANEU ####[facility] Brlgmns[address] [place], [place] [address]#### LIP, CMP, GFR ####[address] [address] Albumin/Globulin Ratio 1.2 {ratio} Normal 1.1-2.5 [facility] ([place] Comment on above: Performed By: #### C BC, ADIFF, ANEU ####[facility] [place] [facility] [place] [address]#### LIP, CMP, GFR ####[address] [address] Alk Phos 56 U/L Normal 40-135 [facility] ([place] Comment on above: Performed By: #### C BC, ADIFF, ANEU ####[facility] X[address]bwknc[address] [place] [address]#### LIP, CMP, GFR ####[address] [address] Aspartate aminotransferase (AST) 42 U/L High 10-40 [facility] ([place]) Comment on above: Performed By: #### C BC, ADIFF, ANEU ####[facility] X[address] [place], [place] [address]#### LIP, CMP, GFR ####[address] [address] Bili Total 0.5 mg/dL Normal 0.2-1.0 [facility] ([place]) Comment on above: Performed By: #### C BC, ADIFF, ANEU ####[facility] F[address] [place] [id number]#### LIP, CMP, GFR ####[facility] [place] [address] BUN/Creatinine Ratio 14 ratio Normal 7-27 [facility] ([place]) Comment on above: Performed By: #### C BC, ADIFF, ANEU ####[facility] T[address] [place], [place] [address]#### LIP, CMP, GFR ####[facility] [place] [address] Calcium 8.0 mg/dL Low 8.4-10.2 [facility] ([place] Comment on above: Performed By: #### C BC, ADIFF, ANEU ####[facility] Xdlnrfcr[address] [place], [place] [address]#### LIP, CMP, GFR ####[address] [address] Chloride 104 mmol/L Normal 98-107 [facility] ([place] Comment on above: Performed By: #### C BC, ADIFF, ANEU ####[facility] Qqlqgdha[address] [place], [place] [address]#### LIP, CMP, GFR ####[address] [address] CO2 23 mmol/L Normal 22-29 [facility] ([place] Comment on above: Performed By: #### C BC, ADIFF, ANEU ####[facility] [address] [place], [place] [address]#### LIP, CMP, GFR ####[address] [address] Creatinine 1.28 mg/dL High 0.55-1.02 [facility] ([place] Comment on above: Performed By: #### C BC, ADIFF, ANEU ####[facility] Mvocr[address] [place], [place] [address]#### LIP, CMP, GFR ####[facility] [place] [address] Electrolyte Balance 9.0 mEq/L Normal [facility] ([place] Comment on above: Performed By: #### C BC, ADIFF, ANEU ####[facility] Q[address]sx[address] [place], [place] [address]#### LIP, CMP, GFR ####[facility] [place] [address] Globulin 2.9 G/dL Normal [facility] ([place] Comment on above: Performed By: #### C BC, ADIFF, ANEU ####[facility] M[address] [place], [place] [address]#### LIP, CMP, GFR ####[facility] [place] [address] Glucose mass conc 90 mg/dL Normal 70-105 [facility] ([place] Comment on above: Performed By: #### C BC, ADIFF, ANEU ####[facility] Ar[address] [place], [place] [address]#### LIP, CMP, GFR ####[address] [address] Potassium molar conc 4.6 mmol/L Normal 3.5-5.1 [facility] ([place] Comment on above: Performed By: #### C BC, ADIFF, ANEU ####[place] [address] [place], [place] [address]#### LIP, CMP, GFR ####[address] [address] Protein 6.3 G/dL Low 6.4-8.2 [facility] ([place]) Comment on above: Performed By: #### C BC, ADIFF, ANEU ####[facility] Ldkbmjwh[address] [place], [place] [address]#### LIP, CMP, GFR ####[facility] [place] [address] Sodium 136 mmol/L Normal 136-145 [facility] ([place] Comment on above: Performed By: #### C BC, ADIFF, ANEU ####[facility] Dczcj[address] [place], [place] [address]#### LIP, CMP, GFR ####[facility] [place] [address] Urea nitrogen 18 mg/dL Normal 7-18 [facility] ([place]) Comment on above: Performed By: #### C BC, ZACKIFF, ANEU ####[facility] [place] [facility] [place], [place] [address]#### LIP, CMP, GFR ####[place] [address] [place] [address] LIPon 05-14-2018 Lipase Level 250 U/L Normal 73-393 Count includes the [facility] ([place]) Comment on above: Performed By: #### C BCZACKIFF, ANEU ####[facility] [place], [place] [address]#### LIP, CMP, GFR ####[facility] [place] [address] Emergency Room Note on 05-14-2018 [facility] Note Normal [facility] ([place] Pat Eduon 05-14-2018 Pat Edu Normal [facility] ([place] Patient Summary Documentson 05-14-2018 Patient Summary Documents Normal [facility] ([place] XR ABDOMEN COMPLETE W/DECUB/ ERECTon 05-14-2018 XR ABDOMEN COMPLETE W/DECUB/ERECT ORIGINALSupine and upright views of the abdomen HISTORY: Abdominal pain COMPARISON: None The lung bases [...] other potential acute finding identified. Interpreted By: Jyoti Young MDPreliminary Report By: Jyoti Young MDElectronically Signed By: Jyoti Young MD Dictated Date: 05/13/2018 10:11:56 PM Prelim Date: 05/13/2018 10:11:56 PM Sign Date: 05/13/2018 10:14:29 PM Normal [facility] ([place]) .Auto Diffon 05-13-2018 Basophils Auto #/vol (Bld) 0.00 10 3/mcL Normal 0.00-0.19 [facility] ([place]) Comment on above: Performed By: #### C LORI, DESTINY, ANEU ####[facility] [address] [place] [address]#### LIP, CMP, GFR ####[facility] [place] [address] Basophils/100 WBC Auto (Bld) 0.5 % Normal 0.0-2.5 [facility] ([place]) Comment on above: Performed By: #### C BC, ADIFF, ANEU ####[facility] [address] [place] [address]#### LIP, CMP, GFR ####[facility] [place] [address] Eosinophils 0.10 10 3/mcL Normal 0.00-0.40 [facility] ([place] Comment on above: Performed By: #### C BC, ADIFF, ANEU ####[facility] [address] [address]#### LIP, CMP, GFR ####[address] [address] Eosinophils/100 leukocytes 0.8 % Normal 0.0-7.0 [facility] ([place] Comment on above: Performed By: #### C BC, ADIFF, ANEU ####[place] [address]#### LIP, CMP, GFR ####[facility] [place] [address] Lymphocytes 1.60 10 3/mcL Normal 0.77-3.85 [facility] ([place] Comment on above: Performed By: #### C BC, ADIFF, ANEU ####[facility] [address]fs[address] [place] [address]#### LIP, CMP, GFR ####[facility] [place] [address] Lymphocytes/100 leukocytes 18.0 % Normal 10.0-50.0 [facility] ([place] Comment on above: Performed By: #### C BC, ADIFF, ANEU ####[facility] T[address] [place] [address]#### LIP, CMP, GFR ####[place] [address] [place] [address] Monocytes 0.60 10 3/mcL Normal 0.15-1.00 [facility] ([place] Comment on above: Performed By: #### Bonnie BC, ADIFF, ANEU ####[facility] [address] [place] [address]#### LIP, CMP, GFR ####[address] [address] Monocytes/100 leukocytes 6.8 % Normal 1.7-13.0 [facility] ([place] Comment on above: Performed By: #### C BC, ADIFF, ANEU ####[place] [address]#### LIP, CMP, GFR ####[place] [address] Neutrophils/100 WBC Auto (Bld) 73.9 % Normal 37.0-80.0 [facility] ([place] Comment on above: Performed By: #### Bonnie BC, ADIFF, ANEU ####[place] [address]#### LIP, CMP, GFR ####[place] [address] .NEUABSon 05-13-2018 Neutrophil, Absolute 6.70 10 3/mcL High 2.85-6.16 A [facility] ([place] Comment on above: Performed By: #### Bonnie SANDOVAL, ADIFF, ANEU ####[place] [address]#### LIP, CMP, GFR ####[address] [address] .Urinalysis Microscopic (AO) on 05-13-2018 UA Bacteria 1+ /hpf Invalid Interpretation Code [facility] ([place] Comment on above: Performed By: #### U A, PREGU, UAMICAO ####[facility] [address] [place] [address] UA Squam Epithelial LOADED Invalid Interpretation Code None Seen [facility] ([place] Comment on above: Performed By: #### U A, PREGU, UAMICAO ####[facility] [place] [place], [place] [address] UA WBC LOADED Invalid Interpretation Code None Seen [facility] ([place] Comment on above: Performed By: #### U A, PREGU, UAMICAO ####[facility] [place] [place], [place] [address] Urine, erythrocytes None Seen Normal None Seen [facility] ([place] Comment on above: Performed By: #### U A, PREGU, UAMICAO ####[facility] X[address] [place], [place] [address] CBCon 05-13-2018 Erythrocyte distribution width Auto Ratio (RBC) 13.9 % Normal 11.5-14.5 [facility] ([place] Comment on above: Performed By: #### C DESTINY SANDOVAL, ANEU ####[facility] [address] [place] [address]#### LIP, CMP, GFR ####[place] [address] Erythrocytes (RBC) 5.57 10 6/mcL High 4.20-5.40 [facility] ([place] Comment on above: Performed By: #### DESTINY REYNOLDS, ANEU ####[facility] [place] [address]#### LIP, CMP, GFR ####[place] [address] Hematocrit (HCT) 49.2 % High 37.0-47.0 [facility] ([place] Comment on above: Performed By: #### Bonnie BC ADIFF, ANEU ####[facility] [address] [address]#### LIP, CMP, GFR ####[place] [address] Hemoglobin mass conc (Bld) 17.1 G/dL High 12.0-16.0 [facility] ([place] Comment on above: Performed By: #### DESTINY REYNOLDS, ANEU ####Bo[facility]essica [address] [place] [address]#### LIP, CMP, GFR ####[facility] [place] [address] MCH 30.6 pg Normal 27.0-31.2 [facility] ([place] Comment on above: Performed By: #### C BC, ADIFF, ANEU ####[facility] [place] [facility] [place] [address]#### LIP, CMP, GFR ####[place] [address] MCHC mass conc (RBC) 34.7 G/dL Normal 33.0-37.0 [facility] ([place] Comment on above: Performed By: #### C LORI, ADIFF, ANEU ####[place] [address]#### LIP, CMP, GFR ####[place] [address] MCV 88.3 fL Normal 80.0-94.0 [facility] ([place] Comment on above: Performed By: #### C BC, ADIFF, ANEU ####[place] [address]#### LIP, CMP, GFR ####[place] [address] Platelet mean volume (PMV) 8.0 fL Normal 7.4-10.4 [facility] ([place] Comment on above: Performed By: #### C LORI, ADIFF, ANEU ####[facility] [place] [facility] [place] [address]#### LIP, CMP, GFR ####[address] [address] Platelets 113 10 3/mcL Low 130-400 Count includes the [facility] ([place] Comment on above: Performed By: #### C BC, ADIFF, ANEU ####[place] [address] [place] [id number]#### LIP, CMP, GFR ####[address] [address] WBC (Leukocytes) 9.10 10 3/mcL Normal 4.60-10.80 [facility] ([place] Comment on above: Performed By: #### C BC, ADIFF, ANEU ####[facility] [address] [place] [address]#### LIP, CMP, GFR ####[place] [address] PREGUon 05-13-2018 HCG ( test) Ql (U) Negative Normal [facility] ([place] Comment on above: Performed By: #### U A, PREGU, UAMICAO ####[facility] [place] [place] [address] test (u) int HCG not detected. Invalid Interpretation Code [facility] ([place] Comment on above: Performed By: #### U A, PREGU, UAMICAO ####[facility] [place] [place] [address] UAon 05-13-2018 UA Appear Slightly Cloudy Invalid Interpretation Code Clear [facility] ([place] Comment on above: Performed By: #### U A, PREGU, UAMICAO ####[facility] [place] [place], [place] [address] UA Blood Negative Normal Negative [facility] ([place] Comment on above: Performed By: #### U A, PREGU, UAMICAO ####[facility] [place] [place] [address] UA Leuk Est Small Invalid Interpretation Code Negative [facility] ([place] Comment on above: Performed By: #### U A, PREGU, UAMICAO ####[facility] [place] [place] [address] UA Nitrite Negative Normal Negative [facility] ([place] Comment on above: Performed By: #### U A, PREGU, UAMICAO ####[facility] [place] [place] [address] UA pH 7.5 Normal [facility] ([place] Comment on above: Performed By: #### U A, PREGU, UAMICAO ####[facility] [place] [place] [address] UA Protein Negative Normal Negative [facility] ([place] Comment on above: Performed By: #### U A, PREGU, UAMICAO ####[facility] [address] [place], [place] [address] UA Spec Grav 1.005 Invalid Interpretation Code [facility] ([place] Comment on above: Performed By: #### U A, PREGU, UAMICAO ####[facility] [address] [place], [place] [address] UA Specimen Type Clean Catch Normal [facility] ([place] Comment on above: Performed By: #### U A, PREGU, UAMICAO ####[facility] [address] [place], [place] [address] UA Urobilinogen 0.2 E.U./dL Normal [facility] ([place] Comment on above: Performed By: #### U A, PREGU, UAMICAO ####[facility] [place] [place], [place] [address] Urine, color Yellow Normal Count includes the [facility] ([place] Comment on above: Performed By: #### U A, PREGU, UAMICAO ####[facility] [place] [place], [place] [address] Urine, glucose Negative Normal Negative [facility] ([place] Comment on above: Performed By: #### U A, PREGU, UAMICAO ####[facility] [place] [place], [place] [address] Urine, ketones presence Negative Normal Negative [facility] ([place] Comment on above: Performed By: #### U A, PREGU, UAMICAO ####[facility] [place] [place], [place] [address] Urine, urobilinogen Negative Normal Negative [facility] ([place] Comment on above: Performed By: #### U A, PREGU, UAMICAO ####[facility] [place] [place], [place] [address] CBC with Diffon 03-15-2018 Basophils #/vol (Bld) 0.1 K/mcL Normal 0-0.2 [facility] Comment on above: Performed By: #### C BCDIF, EDCTNI, CMET, LIPASE #### Unless otherwise noted, all testing performed by [place] [address] CLIA: [id number] Contact Center Manager: Ismael Torre M.D. Basophils/100 WBC (Bld) 1.1 % Normal [facility] Comment on above: Performed By: #### C BCDIF, EDCTNI, CMET, LIPASE #### Unless otherwise noted, all testing performed by [place] [address] CLIA: [id number] Contact Center Manager: Ismael Torre M.D. Eosinophils #/vol (Bld) 0.2 K/mcL Normal 0-0.5 [facility] Comment on above: Performed By: #### C BCDIF, EDCTNI, CMET, LIPASE #### Unless otherwise noted, all testing performed by [place] [phone] CLIA: [id number] Contact Center Manager: Ismael Torre M.D. Eosinophils/100 WBC (Bld) 3.2 % Normal [facility] Comment on above: Performed By: #### C BCDIF, EDCTNI, CMET, LIPASE #### Unless otherwise noted, all testing performed by [place] [phone] CLIA: [id number] Contact Center Manager: Ismael Torre M.D. Erythrocyte distribution width Ratio (RBC) 13.4 % Normal 10.0-14.4 [facility] Comment on above: Performed By: #### C BCDIF, EDCTNI, CMET, LIPASE #### Unless otherwise noted, all testing performed by [place] [address] CLIA: [id number] Contact Center Manager: Ismael Torre M.D. Hematocrit Volume Fraction (Bld) 47.8 % High 34.4-44.8 [facility] Comment on above: Performed By: #### C BCDIF, EDCTNI, CMET, LIPASE #### Unless otherwise noted, all testing performed by [place] [address] CLIA: [id number] Contact Center Manager: Ismael Torre M.D. Hemoglobin mass conc (Bld) 15.7 g/dL High 11.6-15.4 [facility] Comment on above: Performed By: #### C BCDIF, EDCTNI, CMET, LIPASE #### Unless otherwise noted, all testing performed by [place] [address] CLIA: [id number] Contact Center Manager: Ismael Torre M.D. Lymphocytes #/vol (Bld) 1.4 K/mcL Normal 1.0-3.7 [facility] Comment on above: Performed By: #### C BCDIF, EDCTNI, CMET, LIPASE #### Unless otherwise noted, all testing performed by [place] [phone] CLIA: [id number] Contact Center Manager: Ismael Torre M.D. Lymphocytes/100 WBC (Bld) 24.7 % Normal [facility] Comment on above: Performed By: #### C BCDIF, EDCTNI, CMET, LIPASE #### Unless otherwise noted, all testing performed by [place] [address] CLIA: [id number] Contact Center Manager: Ismael Torre M.D. MCH Entitic mass (RBC) 29.6 pg Normal 27.9-33.9 [facility] Comment on above: Performed By: #### C BCDIF, EDCTNI, CMET, LIPASE #### Unless otherwise noted, all testing performed by [place] [address] CLIA: [id number] Contact Center Manager: Ismael Torre M.D. MCHC mass conc (RBC) 32.8 g/dL Low 33.1-35.1 [facility] Comment on above: Performed By: #### C BCDIF, EDCTNI, CMET, LIPASE #### Unless otherwise noted, all testing performed by [place] [address] CLIA: [id number] Contact Center Manager: Ismael Torre M.D. MCV Entitic volume (RBC) 90.5 fL Normal 82.6-98.9 [facility] Comment on above: Performed By: #### C BCDIF, EDCTNI, CMET, LIPASE #### Unless otherwise noted, all testing performed by [place] [address] CLIA: [id number] Contact Center Manager: Ismael Torre M.D. Metamyelocytes/100 WBC (Bld) 2.2 % High 0 [facility] Comment on above: Performed By: #### C BCDIF, EDCTNI, CMET, LIPASE #### Unless otherwise noted, all testing performed by [place] [address] CLIA: [id number] Contact Center Manager: Ismael Torre M.D. Monocytes #/vol (Bld) 0.2 K/mcL Normal 0.1-0.6 [facility] Comment on above: Performed By: #### C BCDIF, EDCTNI, CMET, LIPASE #### Unless otherwise noted, all testing performed by [place] [address] CLIA: [id number] Contact Center Manager: Ismael Torre M.D. Monocytes/100 WBC (Bld) 3.2 % Normal [facility] [place] Comment on above: Performed By: #### C BCDIF, EDCTNI, CMET, LIPASE #### Unless otherwise noted, all testing performed by [place] [address] CLIA: [id number] Contact Center Manager: Ismael Torre M.D. Neutrophils #/vol (Bld) 3.9 K/mcL Normal 1.2-6.9 [facility] [place] Comment on above: Performed By: #### C BCDIF, EDCTNI, CMET, LIPASE #### Unless otherwise noted, all testing performed by [place] [address] CLIA: [id number] Contact Center Manager: Ismael Torre M.D. Nucleated RBC #/vol (Bld) 1 /100 WBC High 0 [facility] [place] Comment on above: Performed By: #### C BCDIF, EDCTNI, CMET, LIPASE #### Unless otherwise noted, all testing performed by [place] [address] CLIA: [id number] Contact Center Manager: Ismael Torre M.D. Platelet mean volume Entitic volume (Bld) 8.8 fL Normal 7.0-10.6 [facility] Comment on above: Performed By: #### C BCDIF, EDCTNI, CMET, LIPASE #### Unless otherwise noted, all testing performed by [address], [place] [address] CLIA: [id number] Contact Center Manager: Ismael Torre M.D. Platelets #/vol (Bld) 133 K/mcL Low 162-402 [facility] Comment on above: Performed By: #### C BCDIF, EDCTNI, CMET, LIPASE #### Unless otherwise noted, all testing performed by [place] [address] CLIA: [id number] Contact Center Manager: Ismael Torre M.D. RBC #/vol (Bld) 5.29 M/mcL High 3.7-5.0 [facility] Comment on above: Performed By: #### C BCDIF, EDCTNI, CMET, LIPASE #### Unless otherwise noted, all testing performed by [place] [address] CLIA: [id number] Contact Center Manager: Ismael Torre M.D. Segmented Neut % 65.6 % Normal [facility] Comment on above: Result Comment: Smea r reviewed to verify automated differential> Performed By: #### C BCDIF, EDCTNI, CMET, LIPASE #### Unless otherwise noted, all testing performed by [place] [address] CLIA: [id number] Contact Center Manager: Ismael Torre M.D. WBC #/vol (Bld) 5.8 K/mcL Normal 3.4-10.6 [facility] Comment on above: Performed By: #### C BCDIF, EDCTNI, CMET, LIPASE #### Unless otherwise noted, all testing performed by [place] [address] CLIA: [id number] Contact Center Manager: Ismael Torre M.D. Comprehensive Metabolic Pane rock 03-15-2018 Albumin mass conc 3.8 g/dL Normal 3.2-5.2 [facility] Comment on above: Performed By: #### G LUX #### Unless otherwise noted, all testing performed by [place] [address] CLIA: [id number] Contact Center Manager: Ismael Torre M.D. ALP enzyme act/vol 66 U/L Normal 40-150 [facility] Comment on above: Performed By: #### G LUX #### Unless otherwise noted, all testing performed by [place] [address] CLIA: [id number] Contact Center Manager: Ismael Torre M.D. ALT enzyme act/vol 56 U/L Normal 14-65 [facility] Comment on above: Result Comment: This test result might be falsely depressed or falsely elevated on samples drawn from patients taking Sulfasalazine and Sulfapyridine. Venipuncture should occur prior to taking either of these drugs. Performed By: #### G LUX #### Unless otherwise noted, all testing performed by [place] [address] CLIA: [id number] Contact Center Manager: Ismael Torre M.D. AST enzyme act/vol 51 U/L High 0-45 [facility] Comment on above: Result Comment: This test result might be falsely depressed or falsely elevated on samples drawn from patients taking Sulfasalazine and Sulfapyridine. Venipuncture should occur prior to taking either of these drugs. Performed By: #### G LUX #### Unless otherwise noted, all testing performed by [place] [address] CLIA: [id number] Contact Center Manager: Ismael Torre M.D. Bilirubin mass conc 0.5 mg/dL Normal 0.3-1.2 [facility] Comment on above: Performed By: #### G LUX #### Unless otherwise noted, all testing performed by [place] [address] CLIA: [id number] Contact Center Manager: Ismael Torre M.D. Calcium mass conc 9.7 mg/dL Normal 8.4-10.2 [facility] Comment on above: Performed By: #### G LUX #### Unless otherwise noted, all testing performed by [place] [phone] CLIA: [id number] Contact Center Manager: Ismael Torre M.D. Chloride molar conc 105 mmol/L Normal 98-108 [facility] Comment on above: Performed By: #### G LUX #### Unless otherwise noted, all testing performed by [place] [phone] CLIA: [id number] Contact Center Manager: Ismael Torre M.D. CO2 molar conc 26 mmol/L Normal 21-32 [facility] [place] Comment on above: Performed By: #### G LUX #### Unless otherwise noted, all testing performed by [place] [address] CLIA: [id number] Contact Center Manager: Ismael Torre M.D. Creatinine mass conc 1.67 mg/dL High 0.40-1.10 [facility] Comment on above: Performed By: #### G LUX #### Unless otherwise noted, all testing performed by [place] [address] CLIA: [id number] Contact Center Manager: Ismael Torre M.D. GFR/1.73 sq M predicted among blacks MDRD vol rate/area (S/P/Bld) 40 mL/min/{1.73_m2} Low >60 [facility] Comment on above: Result Comment: Afri can Stateless GFR Calc Performed By: #### G LUX #### Unless otherwise noted, all testing performed by [place] [address] CLIA: [id number] Contact Center Manager: Ismael Torre M.D. GFR/1.73 sq M predicted among non-blacks MDRD vol rate/area (S/P/Bld) 33 mL/min/{1.73_m2} Low >60 [facility] Comment on above: Result Comment: Non- GFR Calc eGFR is an estimated Glomerular Filtration Rate based on the value of the patient's serum creatinine. In outpatients, eGFR should be used as a helpful tool in screening for CKD. In inpatients or patients with acute renal failure, eGFR represents the GFR at the moment of the draw and should be used with caution. Performed By: #### G LUX #### Unless otherwise noted, all testing performed by [place] [address] CLIA: [id number] Contact Center Manager: Ismael Torre M.D. Glucose mass conc 88 mg/dL Normal 70-99 [facility] Comment on above: Result Comment: This test result might be falsely depressed or falsely elevated on samples drawn from patients taking Sulfasalazine and Sulfapyridine. Venipuncture should occur prior to taking either of these drugs. Performed By: #### G LUX #### Unless otherwise noted, all testing performed by [place] [address] CLIA: [id number] Contact Center Manager: Ismael Torre M.D. Potassium molar conc 4.4 mmol/L Normal 3.5-5.1 [facility] Comment on above: Performed By: #### G LUX #### Unless otherwise noted, all testing performed by [place] [address] CLIA: [id number] Contact Center Manager: Ismael Torre M.D. Protein mass conc 7.3 g/dL Normal 6.0-8.0 [facility] Comment on above: Performed By: #### G LUX #### Unless otherwise noted, all testing performed by [place] [address] CLIA: [id number] Contact Center Manager: Ismael Torre M.D. Sodium molar conc 137 mmol/L Normal 135-145 [facility] Comment on above: Performed By: #### G LUX #### Unless otherwise noted, all testing performed by [place] [address] CLIA: [id number] Contact Center Manager: Ismael Torre M.D. Urea nitrogen mass conc 30 mg/dL High 8-25 [facility] [place] Comment on above: Performed By: #### G LUX #### Unless otherwise noted, all testing performed by [place] [address] CLIA: [id number] Contact Center Manager: Ismael Torre M.D. ED Cardiac Troponin-Ion 05-2 Troponin I.cardiac mass conc ng/mL Normal < 45 [facility] Comment on above: Result Comment: Elev ation of troponin indicates some degree of myocardial necrosis but unless there is a significant rise and/or fall (if elevated) identified, it unlikely that an acute event has taken place Samples from patients routinely receiving high dose biotin therapy (100-300 mg/day) may show falsely decreased results. Please correlate clinically. Performed By: #### C BCDIF, EDCTNI, CMET, LIPASE #### Unless otherwise noted, all testing performed by [place] [address] CLIA: [id number] Contact Center Manager: Ismael Torre M.D. Lipaseon 03-15-2018 Lipase enzyme act/vol 288 U/L Normal 73-393 [facility] Comment on above: Performed By: #### G LUX #### Unless otherwise noted, all testing performed by [place] [address] CLIA: [id number] Contact Center Manager: Ismael Torre M.D. Test,Urine Qualon 03-15-2018 HCG.beta subunit ( test) Ql (U) Negative Normal Negative [facility] Comment on above: Result Comment: Rapi d test procedural control acceptable. If a negative result is obtained but is suspected, hCG levels may be too low or urine may be too dilute for detection. Another specimen should be collected after 48-72 hours and tested. If waiting 48 hours is not medically advisable, the test result should be confirmed with a more sensitive quantitative serum hCG test. Performed By: #### G LUX #### Unless otherwise noted, all testing performed by [place] [address] CLIA: [id number] Contact Center Manager: Ismael Torre M.D. Urinalysis, Routineon 2017 Bacteria LM.HPF #/area (Urine sed) Few Abnormal NS;RARE [facility] Comment on above: Performed By: #### G LUX #### Unless otherwise noted, all testing performed by [place] [address] CLIA: [id number] Contact Center Manager: Ismael Torre M.D. Bilirubin,Urine Negative Normal NEG;NEGATIVE [facility] Comment on above: Performed By: #### G LUX #### Unless otherwise noted, all testing performed by [place] [phone] CLIA: [id number] Contact Center Manager: Ismael Torre M.D. Blood,Urine Small Abnormal NEG;NEGATIVE [facility] [place] Comment on above: Performed By: #### G LUX #### Unless otherwise noted, all testing performed by [place] [phone] CLIA: [id number] Contact Center Manager: Ismael Torre M.D. Character Nom (U) Cloudy Normal [facility] Comment on above: Performed By: #### G LUX #### Unless otherwise noted, all testing performed by [place] [phone] CLIA: [id number] Contact Center Manager: Ismael Torre M.D. Color Nom (U) Yellow Normal [facility] [place] Comment on above: Performed By: #### G LUX #### Unless otherwise noted, all testing performed by [place] [phone] CLIA: [id number] Contact Center Manager: Ismael Torre M.D. Glucose Ql (U) Negative Normal NEG;NEGATIVE [facility] Comment on above: Performed By: #### G LUX #### Unless otherwise noted, all testing performed by [place] [phone] CLIA: [id number] Contact Center Manager: Ismael Torre M.D. Ketone,Urine Negative Normal NEG;NEGATIVE [facility] [place] Comment on above: Performed By: #### G LUX #### Unless otherwise noted, all testing performed by [place] [phone] CLIA: [id number] Contact Center Manager: Ismael Torre M.D. Leuk.Esterase,Urine Large Abnormal Negative [facility] Comment on above: Performed By: #### G LUX #### Unless otherwise noted, all testing performed by [place] [phone] CLIA: [id number] Contact Center Manager: Ismael Torre M.D. Nitrite,Urine Negative Normal NEG;NEGATIVE [facility] Comment on above: Performed By: #### G LUX #### Unless otherwise noted, all testing performed by [place] [phone] CLIA: [id number] Contact Center Manager: Ismael Torre M.D. pH (U) 5.0 [pH] Normal 4.5-8.0 [facility] [place] Comment on above: Performed By: #### G LUX #### Unless otherwise noted, all testing performed by [place] [phone] CLIA: [id number] Contact Center Manager: Ismael Torre M.D. Protein mass conc (U) Negative Normal NEG;NEGATIVE [facility] Comment on above: Performed By: #### G LUX #### Unless otherwise noted, all testing performed by [place] [phone] CLIA: [id number] Contact Center Manager: Ismael Torre M.D. RBC,Urine 8 /HPF High 0-5 [facility] [place] Comment on above: Performed By: #### G LUX #### Unless otherwise noted, all testing performed by [place] [address] CLIA: [id number] Contact Center Manager: Ismael Torre M.D. Specific [place],Urine 1.015 Normal 1.003-1.029 [facility] [place] Comment on above: Performed By: #### G LUX #### Unless otherwise noted, all testing performed by [place] [address] CLIA: [id number] Contact Center Manager: Ismael Torre M.D. Squamous Epithelial 11 /HPF Normal 0-40 [facility] Comment on above: Performed By: #### G LUX #### Unless otherwise noted, all testing performed by [place] [address] CLIA: [id number] Contact Center Manager: Ismael Torre M.D. Urobilinogen,Urine < 2.0 Normal <2 [facility] Comment on above: Performed By: #### G LUX #### Unless otherwise noted, all testing performed by [place] [phone] CLIA: [id number] Contact Center Manager: Ismael Torre M.D. WBC,Urine 46 /HPF High 0-5 [facility] [place] Comment on above: Performed By: #### G LUX #### Unless otherwise noted, all testing performed by [place] [address] CLIA: [id number] Contact Center Manager: Ismael Torre M.D. US Abdomen Limited Studyon 0 01-18-2018 US Abdomen Limited Study Invalid Interpretation Code ONBASE Basic Metabolic Panelon 12-16 Calcium mass conc 8.9 mg/dL Normal 8.4-10.2 [facility] Comment on above: Performed By: #### C HEM8, VALP #### Unless otherwise noted, all testing performed by [place] [address] CLIA: [id number] Contact Center Manager: Ismael Torre M.D. Chloride molar conc 105 mmol/L Normal 98-108 [facility] Comment on above: Performed By: #### C HEM8, VALP #### Unless otherwise noted, all testing performed by [place] [address] CLIA: [id number] Contact Center Manager: Ismael Torre M.D. CO2 molar conc 22 mmol/L Normal 21-32 [facility] [place] Comment on above: Performed By: #### C HEM8, VALP #### Unless otherwise noted, all testing performed by [place] [address] CLIA: [id number] Contact Center Manager: Ismael Torre M.D. Creatinine mass conc 1.42 mg/dL High 0.40-1.10 [facility] Comment on above: Performed By: #### C HEM8, VALP #### Unless otherwise noted, all testing performed by [place] [address] CLIA: [id number] Contact Center Manager: Ismael Torre M.D. GFR/1.73 sq M predicted among blacks MDRD vol rate/area (S/P/Bld) 49 mL/min/{1.73_m2} Low >60 [facility] Comment on above: Result Comment: Afri can Stateless GFR Calc Performed By: #### C HEM8, VALP #### Unless otherwise noted, all testing performed by [place] [address] CLIA: [id number] Contact Center Manager: Ismael Torre M.D. GFR/1.73 sq M predicted among non-blacks MDRD vol rate/area (S/P/Bld) 40 mL/min/{1.73_m2} Low >60 [facility] Comment on above: Result Comment: Non- GFR Calc eGFR is an estimated Glomerular Filtration Rate based on the value of the patient's serum creatinine. In outpatients, eGFR should be used as a helpful tool in screening for CKD. In inpatients or patients with acute renal failure, eGFR represents the GFR at the moment of the draw and should be used with caution. Performed By: #### C HEM8, VALP #### Unless otherwise noted, all testing performed by [place] [address] CLIA: [id number] Contact Center Manager: Ismael Torre M.D. Glucose mass conc 86 mg/dL Normal 70-99 [facility] Comment on above: Result Comment: This test result might be falsely depressed or falsely elevated on samples drawn from patients taking Sulfasalazine and Sulfapyridine. Venipuncture should occur prior to taking either of these drugs. Performed By: #### C HEM8, VALP #### Unless otherwise noted, all testing performed by [place] [address] CLIA: [id number] Contact Center Manager: Ismael Torre M.D. Potassium molar conc 4.2 mmol/L Normal 3.5-5.1 [facility] Comment on above: Performed By: #### C HEM8, VALP #### Unless otherwise noted, all testing performed by [place] [address] CLIA: [id number] Contact Center Manager: Ismael Torre M.D. Sodium molar conc 137 mmol/L Normal 135-145 [facility] Comment on above: Performed By: #### C HEM8, VALP #### Unless otherwise noted, all testing performed by [place] [address] CLIA: [id number] Contact Center Manager: Ismael Torre M.D. Urea nitrogen mass conc 28 mg/dL High 8-25 [facility] [place] Comment on above: Performed By: #### C HEM8, VALP #### Unless otherwise noted, all testing performed by [place] [phone] CLIA: [id number] Contact Center Manager: Ismael Torre M.D. CBC with Diffon 01-02-2018 Basophils #/vol (Bld) 0.0 K/mcL Normal 0-0.2 [facility] Comment on above: Performed By: #### C BCDIF #### Unless otherwise noted, all testing performed by [place] [phone] CLIA: [id number] Contact Center Manager: Ismael Torre M.D. Basophils/100 WBC (Bld) 0.4 % Normal [facility] [place] Comment on above: Performed By: #### C BCDIF #### Unless otherwise noted, all testing performed by [place] [address] CLIA: [id number] Contact Center Manager: Ismael Torre M.D. Eosinophils #/vol (Bld) 0.1 K/mcL Normal 0-0.5 [facility] [place] Comment on above: Performed By: #### C BCDIF #### Unless otherwise noted, all testing performed by [address] [place], [place] [address] CLIA: [id number] Contact Center Manager: Ismael Torre M.D. Eosinophils/100 WBC (Bld) 1.6 % Normal [facility] Comment on above: Performed By: #### C BCDIF #### Unless otherwise noted, all testing performed by [place] [phone] CLIA: [id number] Contact Center Manager: Ismael Torre M.D. Erythrocyte distribution width Ratio (RBC) 13.6 % Normal 10.0-14.4 [facility] [place] Comment on above: Performed By: #### C BCDIF #### Unless otherwise noted, all testing performed by [place] [phone] CLIA: [id number] Contact Center Manager: Ismael Torre M.D. Hematocrit Volume Fraction (Bld) 41.9 % Normal 34.4-44.8 [facility] [place] Comment on above: Performed By: #### C BCDIF #### Unless otherwise noted, all testing performed by [place] [phone] CLIA: [id number] Contact Center Manager: Ismael Torre M.D. Hemoglobin mass conc (Bld) 14.0 g/dL Normal 11.6-15.4 [facility] [place] Comment on above: Performed By: #### C BCDIF #### Unless otherwise noted, all testing performed by [place] [phone] CLIA: [id number] Contact Center Manager: Ismael Torre M.D. Lymphocytes #/vol (Bld) 2.1 K/mcL Normal 1.0-3.7 [facility] [place] Comment on above: Performed By: #### C BCDIF #### Unless otherwise noted, all testing performed by [place] [address] CLIA: [id number] Contact Center Manager: Ismael Torre M.D. Lymphocytes/100 WBC (Bld) 29.9 % Normal [facility] [place] Comment on above: Performed By: #### C BCDIF #### Unless otherwise noted, all testing performed by [place] [address] CLIA: [id number] Contact Center Manager: Ismael Torre M.D. MCH Entitic mass (RBC) 29.7 pg Normal 27.9-33.9 [facility] [place] Comment on above: Performed By: #### C BCDIF #### Unless otherwise noted, all testing performed by [place] [phone] CLIA: [id number] Contact Center Manager: Ismael Torre M.D. MCHC mass conc (RBC) 33.4 g/dL Normal 33.1-35.1 [facility] Comment on above: Performed By: #### C BCDIF #### Unless otherwise noted, all testing performed by [place] [phone] CLIA: [id number] Contact Center Manager: Ismael Torre M.D. MCV Entitic volume (RBC) 89.0 fL Normal 82.6-98.9 [facility] [place] Comment on above: Performed By: #### C BCDIF #### Unless otherwise noted, all testing performed by [place] [address] CLIA: [id number] Contact Center Manager: Ismael Torre M.D. Monocytes #/vol (Bld) 0.7 K/mcL High 0.1-0.6 [facility] Comment on above: Performed By: #### C BCDIF #### Unless otherwise noted, all testing performed by [place] [address] CLIA: [id number] Contact Center Manager: Ismael Torre M.D. Monocytes/100 WBC (Bld) 9.7 % Normal [facility] [place] Comment on above: Performed By: #### C BCDIF #### Unless otherwise noted, all testing performed by [place] [address] CLIA: [id number] Contact Center Manager: Ismael Torre M.D. Neutrophils #/vol (Bld) 4.1 K/mcL Normal 1.2-6.9 [facility] [place] Comment on above: Performed By: #### C BCDIF #### Unless otherwise noted, all testing performed by [place] [phone] CLIA: [id number] Contact Center Manager: Ismael Torre M.D. Platelet mean volume Entitic volume (Bld) 8.6 fL Normal 7.0-10.6 [facility] [place] Comment on above: Performed By: #### C BCDIF #### Unless otherwise noted, all testing performed by [place] [address] CLIA: [id number] Contact Center Manager: sImael Torre M.D. Platelets #/vol (Bld) 100 K/mcL Low 162-402 [facility] Comment on above: Performed By: #### C BCDIF #### Unless otherwise noted, all testing performed by [address] [place], [place] [address] CLIA: [id number] Contact Center Manager: Ismael Torre M.D. RBC #/vol (Bld) 4.71 M/mcL Normal 3.7-5.0 [facility] Comment on above: Performed By: #### C BCDIF #### Unless otherwise noted, all testing performed by [place] [address] CLIA: [id number] Contact Center Manager: Ismael Torre M.D. Segmented Neut % 58.4 % Normal [facility] Comment on above: Performed By: #### C BCDIF #### Unless otherwise noted, all testing performed by [place] [address] CLIA: [id number] Contact Center Manager: Ismael Torre M.D. WBC #/vol (Bld) 7.0 K/mcL Normal 3.4-10.6 [facility] Comment on above: Performed By: #### C BCDIF #### Unless otherwise noted, all testing performed by [place] [address] CLIA: [id number] Contact Center Manager: Ismael Torre M.D. CHEST (ONE VIEW ONLY)on 12-16 CHEST (ONE VIEW ONLY) Final Report Accession No: [id number] Performed: Jan 02 2018 1:47PM Examination: CHEST (ONE VIEW ONLY) TECHNIQUE single view of the chest AP [...] place. The angle of the LAP-BAND measures approximately 45 degrees as compared to the spine. Interpreting Physician: LUIS ENRIQUE ROMERO M.D. Trans: n/a : cc: Normal [facility] Glucose, POCon 01-02-2018 Glucose mass conc 103 mg/dL Normal 70-105 [facility] Comment on above: Performed By: #### G LUX #### Unless otherwise noted, all testing performed by [place] [address] CLIA: [id number] Contact Center Manager: Ismael Torre M.D. Levetiracetamon 01-02-2018 Levetiracetam mass conc 45.1 ug/mL Normal 12.0 - 46.0 [facility] [place] Comment on above: Result Comment: ---- ADDITIONAL INFORMATION This test was developed and its performance characteristics determined by [facility] in a manner consistent with CLIA requirements. This test has not been cleared or approved by the U.S. Food and Drug Administration. Test Performed by: [place] [id number] Performed By: #### L ATIYA BAILEY #### Unless otherwise noted, all testing performed by [place] [id number] CLIA: [id number] Contact Center Manager: Ismael Torre M.D. Topiramateon 01-02-2018 Topiramate 1.6 mcg/mL Normal [facility] Comment on above: Result Comment: ---- REFERENCE VALUE Reference values depend on clinical use: Anticonvulsant: 5.0-20.0 mcg/mL Psychiatric: 2.0-8.0 mcg/mL ADDITIONAL INFORMATION This test was developed and its performance characteristics determined by [facility] in a manner consistent with CLIA requirements. This test has not been cleared or approved by the U.S. Food and Drug Administration. Test Performed by: [facility] [address] [place] [address] Performed By: #### L ATIYA BAILEY #### Unless otherwise noted, all testing performed by [place] [address] CLIA: [id number] Contact Center Manager: Ismael Torre M.D. Urinalysis, Routineon 2017 Bilirubin,Urine Negative Normal NEG;NEGATIVE [facility] Comment on above: Performed By: #### U A #### Unless otherwise noted, all testing performed by [place] [address] CLIA: [id number] Contact Center Manager: Ismael Torre M.D. Blood,Urine Negative Normal NEG;NEGATIVE [facility] Comment on above: Performed By: #### U A #### Unless otherwise noted, all testing performed by [place] [address] CLIA: [id number] Contact Center Manager: Ismael Torre M.D. Character Nom (U) Clear Normal [facility] Comment on above: Performed By: #### U A #### Unless otherwise noted, all testing performed by [place] [address] CLIA: [id number] Contact Center Manager: Ismael Torre M.D. Color Nom (U) Straw Normal [facility] Comment on above: Performed By: #### U A #### Unless otherwise noted, all testing performed by [place] [phone] CLIA: [id number] Contact Center Manager: Ismael Torre M.D. Glucose Ql (U) Negative Normal NEG;NEGATIVE [facility] Comment on above: Performed By: #### U A #### Unless otherwise noted, all testing performed by [place] [phone] CLIA: [id number] Contact Center Manager: Ismael Torre M.D. Ketone,Urine Negative Normal NEG;NEGATIVE [facility] Comment on above: Performed By: #### U A #### Unless otherwise noted, all testing performed by [place] [phone] CLIA: [id number] Contact Center Manager: Ismael Torre M.D. Leuk.Esterase,Urine Negative Normal Negative [facility] Comment on above: Performed By: #### U A #### Unless otherwise noted, all testing performed by [place] [phone] CLIA: [id number] Contact Center Manager: Ismael Torre M.D. Nitrite,Urine Negative Normal NEG;NEGATIVE [facility] Comment on above: Performed By: #### U A #### Unless otherwise noted, all testing performed by [place] [phone] CLIA: [id number] Contact Center Manager: Ismael Torre M.D. pH (U) 6.0 [pH] Normal 4.5-8.0 [facility] Comment on above: Performed By: #### U A #### Unless otherwise noted, all testing performed by [place] [address] CLIA: [id number] Contact Center Manager: Ismael Torre M.D. Protein mass conc (U) Negative Normal NEG;NEGATIVE [facility] Comment on above: Performed By: #### U A #### Unless otherwise noted, all testing performed by [place] [address] CLIA: [id number] Contact Center Manager: Ismael Torre M.D. RBC LM.HPF #/area (Urine sed) /[HPF] Normal 0-5 [facility] Comment on above: Performed By: #### U A #### Unless otherwise noted, all testing performed by [place] [address] CLIA: [id number] Contact Center Manager: Ismael Torre M.D. Specific [place],Urine 1.006 Normal 1.003-1.029 [facility] Comment on above: Performed By: #### U A #### Unless otherwise noted, all testing performed by [place] [address] CLIA: [id number] Contact Center Manager: Ismael Torre M.D. Squamous Epithelial 1 /HPF Normal 0-40 [facility] Comment on above: Performed By: #### U A #### Unless otherwise noted, all testing performed by [place] [address] CLIA: [id number] Contact Center Manager: Ismael Torre M.D. Urobilinogen,Urine < 2.0 Normal <2 [facility] Comment on above: Performed By: #### U A #### Unless otherwise noted, all testing performed by [place] [address] CLIA: [id number] Contact Center Manager: Ismael Torre M.D. WBC,Urine 1 /HPF Normal 0-5 [facility] Comment on above: Performed By: #### U A #### Unless otherwise noted, all testing performed by [place] [address] CLIA: [id number] Contact Center Manager: Ismael Torre M.D. Valproic Acidon 01-02-2018 Protein mass conc 72 mcg/mL Normal 50-100 [facility] Comment on above: Result Comment: Resu lt should be correlated with last dose as reflected in the medical record. Performed By: #### C HEM8, VALP #### Unless otherwise noted, all testing performed by [place] [address] CLIA: [id number] Contact Center Manager: Ismael Torre M.D. 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 IMPRESSION: Normal study. Normal [facility] Vital Signs Date Time Vital Sign Value Performing Clinician Facility 04-05-2025 01:26-0400 Body temperature 98.3 [degF] Dr. Sree Jamison MD Work Phone: [facility] 04-05-2025 01:26-0400 Diastolic blood pressure 90 mm[Hg] Dr. Sree Jamison MD Work Phone: 2(405)[phone] [place] [address] 04-05-2025 01:26-0400 Heart rate 77 /min Dr. Sree Jamison MD Work Phone: 6(059)230-092257 [place] [address] 04-05-2025 01:26-0400 Respiratory rate 18 /min Dr. Sree Jamison MD Work Phone: 9(159)118-681657 [place] [address] 04-05-2025 01:26-0400 SaO2% (BldA) [Mass fraction] 96 % Dr. Sree Jamison MD Work Phone: 6(040)834-146357 [place] [address] 04-05-2025 01:26-0400 Systolic blood pressure 165 mm[Hg] Dr. Sree Jamison MD Work Phone: 7(729)256-265857 [place] [address] 04-04-2025 15:43-0400 Body mass index (BMI) [Ratio] 33.1 kg/m2 Dr. Sree Jamison MD Work Phone: 3(889)599-744557 [place] [address] 04-04-2025 15:43-0400 Body weight 74.[address] Sree Jamison MD Work Phone: 9(383)734-771257 [place] [address] 04-04-2025 15:40-0400 Body height 149.[address] Sree Jamison MD Work Phone: 8(016)094-622157 [place] [address] 03-21-2025 18:00-0400 Diastolic blood pressure 70 mm[Hg] Dr. Sree Jamison MD Work Phone: 3(660)635-783613 [address] 03-21-2025 18:00-0400 Heart rate 90 /min Dr. Sree Jamison MD Work Phone: 8(510)339-567657 [place] [address] 03-21-2025 18:00-0400 Respiratory rate 12 /min Dr. Sree Jamison MD Work Phone: 4(666)337-303957 [place] [address] 03-21-2025 18:00-0400 SaO2% (BldA) [Mass fraction] 99 % Dr. Sree Jamison MD Work Phone: 0(624)981-718936 [place] [address] 03-21-2025 18:00-0400 Systolic blood pressure 180 mm[Hg] Dr. Sree Jamison MD Work Phone: [facility] 03-21-2025 16:27-0400 Body temperature 98.6 [degF] Dr. Sree Jamison MD Work Phone: [facility] 03-21-2025 09:37-0400 Body height 149.[address] Sree Jamison MD Work Phone: [facility] 03-21-2025 09:37-0400 Body mass index (BMI) [Ratio] 34.2 kg/m2 Dr. Sree Jamison MD Work Phone: [facility] 03-21-2025 09:37-0400 Body weight [address] Sree Jamison MD Work Phone: [facility] 03-15-2025 10:39-0400 Body temperature 97.81 [degF] Sohail Hernandez MD PhD Work Phone: [facility] 03-15-2025 10:39-0400 Diastolic blood pressure 81 mm[Hg] Sohail Hernandez MD PhD Work Phone: [facility] 03-15-2025 10:39-0400 Heart rate 85 /min Sohail Hernandez MD PhD Work Phone: [facility] 03-15-2025 10:39-0400 Respiratory rate 20 /min Sohail Hernandez MD PhD Work Phone: [facility] 03-15-2025 10:39-0400 SaO2% (BldA) [Mass fraction] 95 % Sohail Hernandez MD PhD Work Phone: [facility] 03-15-2025 10:39-0400 Systolic blood pressure 124 mm[Hg] Sohail Hernandez MD PhD Work Phone: [facility] 03-13-2025 17:25-0400 Body height 142.2 cm Sohail Hernandez MD PhD Work Phone: [facility] 01-25-2025 14:36-0400 Body height 139.7 cm Valentina Chopra MD Work Phone: [facility] 01-25-2025 14:36-0400 Diastolic blood pressure 78 mm[Hg] Valentina Chopra MD Work Phone: [facility] 01-25-2025 14:36-0400 Heart rate 76 /min Valentina Chopra MD Work Phone: [facility] 01-25-2025 14:36-0400 Systolic blood pressure 137 mm[Hg] Valentina Chopra MD Work Phone: [facility] 12-08-2024 14:10-0500 Body mass index (BMI) [Ratio] 36.49 kg/m2 Sohail Hernandez MD PhD Work Phone: [facility] 12-08-2024 14:10-0500 Body weight 71.22 kg Sohail Hernandez MD PhD Work Phone: [facility] 10-26-2024 11:38-0500 Diastolic blood pressure 84 mm[Hg] Sohail Hernandez MD PhD Work Phone: [facility] 10-26-2024 11:38-0500 Systolic blood pressure 140 mm[Hg] Sohail Hernandez MD PhD Work Phone: [facility] 07-18-2024 12:47-0400 Body height 139.7 cm Valentina Chopra MD Work Phone: [facility] 07-18-2024 12:47-0400 Body mass index (BMI) [Ratio] 36.49 kg/m2 Valentina Chopra MD Work Phone: [facility] 07-18-2024 12:47-0400 Body weight 71.22 kg Valentina Chopra MD Work Phone: [facility] 07-18-2024 12:47-0400 Diastolic blood pressure 104 mm[Hg] Valentina Chopra MD Work Phone: [facility] 07-18-2024 12:47-0400 Heart rate 69 /min Valentina Chopra MD Work Phone: [facility] 07-18-2024 12:47-0400 Systolic blood pressure 164 mm[Hg] Valentina Chopra MD Work Phone: [facility] 07-07-2024 11:51-0400 Body height 139.7 cm Sohail Hernandez MD PhD Work Phone: [facility] 07-07-2024 11:51-0400 Body mass index (BMI) [Ratio] 36.49 kg/m2 Sohail Hernandez MD PhD Work Phone: [facility] 07-07-2024 11:51-0400 Body weight 71.22 kg Sohail Hernandez MD PhD Work Phone: [facility] 07-07-2024 11:51-0400 Diastolic blood pressure 53 mm[Hg] Sohail Hernandez MD PhD Work Phone: [facility] 07-07-2024 11:51-0400 Heart rate 78 /min Sohail Hernandez MD PhD Work Phone: [facility] 07-07-2024 11:51-0400 Systolic blood pressure 92 mm[Hg] Sohail Hernandez MD PhD Work Phone: [facility] 06-16-2024 14:00-0400 Diastolic blood pressure 84 mm[Hg] aRúl Hudson MD Work Phone: [facility] 06-16-2024 14:00-0400 Heart rate 68 /min Raúl Hudson MD Work Phone: [facility] 06-16-2024 14:00-0400 Systolic blood pressure 142 mm[Hg] Raúl Hudson MD Work Phone: [facility] 06-06-2024 12:10-0400 Respiratory rate 16 /min Destinee Price MD Work Phone: [facility] 06-06-2024 07:41-0400 Body temperature 97.7 [degF] Destinee Price MD Work Phone: [facility] 06-06-2024 07:41-0400 Diastolic blood pressure 78 mm[Hg] Destinee Price MD Work Phone: [facility] 06-06-2024 07:41-0400 Heart rate 76 /min Destinee Price MD Work Phone: [facility] 06-06-2024 07:41-0400 SaO2% (BldA) [Mass fraction] 93 % Destinee Price MD Work Phone: [facility] 06-06-2024 07:41-0400 Systolic blood pressure 169 mm[Hg] Destinee Price MD Work Phone: [facility] 06-05-2024 15:09-0400 Body height 139.7 cm Destinee Price MD Work Phone: [facility] 06-05-2024 15:09-0400 Body mass index (BMI) [Ratio] 36.48 kg/m2 Destinee Price MD Work Phone: [facility] 06-05-2024 15:09-0400 Body weight 71.2 kg Destinee Price MD Work Phone: [facility] 04-27-2024 14:36-0400 Body height 139.7 cm [facility] 04-27-2024 14:36-0400 Body mass index (BMI) [Ratio] 36.49 kg/m2 [facility] 04-27-2024 14:36-0400 Body weight 71.22 kg [facility] 04-19-2024 13:57-0400 Body height 139.7 cm Shayy Mcginnis MD Work Phone: [facility] 04-19-2024 13:57-0400 Diastolic blood pressure 64 mm[Hg] Shayy Mcginnis MD Work Phone: [facility] 04-19-2024 13:57-0400 Systolic blood pressure 120 mm[Hg] Shayy Mcginnis MD Work Phone: [facility] 04-05-2024 10:56-0400 Diastolic blood pressure 68 mm[Hg] Khalida Mtz MD Work Phone: [facility] 04-05-2024 10:56-0400 Systolic blood pressure 118 mm[Hg] Khalida Mtz MD Work Phone: [facility] 04-04-2024 11:30-0400 Diastolic blood pressure 60 mm[Hg] Mejia Cullen MD Work Phone: [facility] 04-04-2024 11:30-0400 Heart rate 97 /min Mejia Cullen MD Work Phone: [facility] 04-04-2024 11:30-0400 Systolic blood pressure 130 mm[Hg] Mejia Cullen MD Work Phone: [facility] 02-04-2024 09:46-0400 Diastolic blood pressure 83 mm[Hg] Olinda Luna MD Work Phone: [facility] 02-04-2024 09:46-0400 Heart rate 69 /min Olinda Luna MD Work Phone: [facility] 02-04-2024 09:46-0400 Systolic blood pressure 123 mm[Hg] Olinda Luna MD Work Phone: [facility] 01-03-2024 13:31-0400 Body height 139.7 cm Mejia Cullen MD Work Phone: [facility] 01-03-2024 13:31-0400 Body mass index (BMI) [Ratio] 37.19 kg/m2 Mejia Cullen MD Work Phone: [facility] 01-03-2024 13:31-0400 Body weight 72.58 kg Mejia Cullen MD Work Phone: [facility] 01-03-2024 13:31-0400 Diastolic blood pressure 85 mm[Hg] Mejia Cullen MD Work Phone: [facility] 01-03-2024 13:31-0400 Heart rate 74 /min Mejia Cullen MD Work Phone: [facility] 01-03-2024 13:31-0400 Systolic blood pressure 140 mm[Hg] Mejia Cullen MD Work Phone: [facility] 01-01-2024 11:45-0400 Heart rate 79 /min Carolynn Allegra DO Work Phone: [facility] 01-01-2024 11:45-0400 Respiratory rate 25 /min Carolynn Allegra DO Work Phone: [facility] 01-01-2024 11:45-0400 SaO2% (BldA) [Mass fraction] 93 % Carolynn Allegra DO Work Phone: [facility] 01-01-2024 11:30-0400 Diastolic blood pressure 84 mm[Hg] Carolynn Allegra DO Work Phone: [facility] 01-01-2024 11:30-0400 Systolic blood pressure 142 mm[Hg] Carolynn Allegra DO Work Phone: [facility] 12-31-2023 20:26-0400 Body temperature 96.91 [degF] Carolynn Allegra DO Work Phone: [facility] 11-17-2023 20:28-0500 Diastolic blood pressure 84 mm[Hg] Larry Lemasters DO Work Phone: [facility] 11-17-2023 20:28-0500 Heart rate 74 /min Larry Lemasters DO Work Phone: [facility] 11-17-2023 20:28-0500 Respiratory rate 18 /min Larry Lemasters DO Work Phone: [facility] 11-17-2023 20:28-0500 SaO2% (BldA) [Mass fraction] 92 % Larry Lemasters DO Work Phone: [facility] 11-17-2023 20:28-0500 Systolic blood pressure 138 mm[Hg] Larry Lemasters DO Work Phone: [facility] 11-17-2023 16:08-0500 Body height 139.7 cm Larry Eugene DO Work Phone: [facility] 11-17-2023 16:08-0500 Body mass index (BMI) [Ratio] 38.35 kg/m2 Larry Eugene DO Work Phone: [facility] [place] 11-17-2023 16:08-0500 Body temperature 97.59 [degF] Larry Eugene DO Work Phone: [facility] 11-17-2023 16:08-0500 Body weight 74.84 kg Larry Eugene DO Work Phone: [facility] 11-10-2023 10:11-0500 Body height 139.7 cm Valentina Munoz MD Work Phone: [facility] 11-10-2023 10:11-0500 Diastolic blood pressure 64 mm[Hg] Valentina Munoz MD Work Phone: [facility] 11-10-2023 10:11-0500 Systolic blood pressure 112 mm[Hg] Valentina Munoz MD Work Phone: [facility] 11-08-2023 10:34-0500 Diastolic blood pressure 83 mm[Hg] Jeanie Ayala MD Work Phone: [facility] 11-08-2023 10:34-0500 Heart rate 75 /min Jeanie Ayala MD Work Phone: [facility] 11-08-2023 10:34-0500 Systolic blood pressure 138 mm[Hg] Jeanie Ayala MD Work Phone: [facility] [place] 10-29-2023 11:04-0500 Body height 139.7 cm Matthew Pérez MD [facility] 10-29-2023 11:04-0500 Body mass index (BMI) [Ratio] 38.28 kg/m2 Matthew Pérez MD [facility] 10-29-2023 11:04-0500 Body weight 74.71 kg Matthew Pérez MD [facility] 10-29-2023 11:04-0500 Diastolic blood pressure 80 mm[Hg] Matthew Pérez MD [facility] 10-29-2023 11:04-0500 Systolic blood pressure 130 mm[Hg] Matthew Pérez MD [facility] 10-25-2023 10:27-0500 Body height 139.7 cm Mejia Cullen MD Work Phone: [facility] 10-25-2023 10:27-0500 Body mass index (BMI) [Ratio] 37.19 kg/m2 Mejia Cullen MD Work Phone: [facility] 10-25-2023 10:27-0500 Body weight 72.58 kg Mejia Cullen MD Work Phone: [facility] 10-25-2023 10:27-0500 Diastolic blood pressure 82 mm[Hg] Mejia Cullen MD Work Phone: [employer] [facility] 10-25-2023 10:27-0500 Heart rate 72 /min Mejia Cullen MD Work Phone: [employer] [facility] 10-25-2023 10:27-0500 Systolic blood pressure 135 mm[Hg] Mejia Cullen MD Work Phone: [facility] 10-02-2023 06:59-0500 Diastolic blood pressure 90 mm[Hg] Lit Ledezma MD Work Phone: [facility] 10-02-2023 06:59-0500 Heart rate 75 /min Lit Ledezma MD Work Phone: [facility] 10-02-2023 06:59-0500 Respiratory rate 18 /min Lit Ledezma MD Work Phone: [facility] 10-02-2023 06:59-0500 SaO2% (BldA) [Mass fraction] 98 % Lit Ledezma MD Work Phone: [facility] 10-02-2023 06:59-0500 Systolic blood pressure 141 mm[Hg] Lit Ledezma MD Work Phone: [facility] 10-02-2023 01:11-0500 Body height 139.7 cm Lit Ledezma MD Work Phone: [facility] 10-02-2023 01:11-0500 Body mass index (BMI) [Ratio] 37.19 kg/m2 Lit Ledezma MD Work Phone: [facility] 10-02-2023 01:11-0500 Body temperature 98.29 [degF] Lit Ledezma MD Work Phone: [facility] 10-02-2023 01:11-0500 Body weight 72.58 kg Lit Ledezma MD Work Phone: [facility] 09-21-2023 13:33-0500 Body height 139.7 cm Everett Haywood MD Work Phone: [facility] 09-21-2023 13:33-0500 Body mass index (BMI) [Ratio] 37.19 kg/m2 Everett Haywood MD Work Phone: [facility] 09-21-2023 13:33-0500 Body weight 72.58 kg Everett Haywood MD Work Phone: [facility] Comment on above: Per pt 09-21-2023 13:33-0500 Diastolic blood pressure 86 mm[Hg] Everett Haywood MD Work Phone: [facility] 09-21-2023 13:33-0500 Heart rate 75 /min Everett Haywood MD Work Phone: [facility] 09-21-2023 13:33-0500 SaO2% (BldA) [Mass fraction] 95 % Everett Haywood MD Work Phone: [facility] 09-21-2023 13:33-0500 Systolic blood pressure 124 mm[Hg] Everett Haywood MD Work Phone: [facility] 09-16-2023 11:36-0500 Diastolic blood pressure 68 mm[Hg] Dimas Lin MD Work Phone: [facility] 09-16-2023 11:36-0500 Heart rate 62 /min Dimas Lin MD Work Phone: [facility] 09-16-2023 11:36-0500 Respiratory rate 18 /min Dimas Lin MD Work Phone: [facility] 09-16-2023 11:36-0500 SaO2% (BldA) [Mass fraction] 96 % Dimas Lin MD Work Phone: [facility] 09-16-2023 11:36-0500 Systolic blood pressure 130 mm[Hg] Dimas Lin MD Work Phone: [facility] 09-16-2023 09:10-0500 Body height 139.7 cm Dimas Lin MD Work Phone: [facility] 09-16-2023 09:10-0500 Body mass index (BMI) [Ratio] 37.19 kg/m2 Dimas Lin MD Work Phone: [facility] 09-16-2023 09:10-0500 Body temperature 97.3 [degF] Dimas Lin MD Work Phone: [facility] 09-16-2023 09:10-0500 Body weight 72.58 kg Dimas Lin MD Work Phone: [facility] 09-08-2023 11:26-0500 Body height 137.2 cm Jeanie Ayala MD Work Phone: [facility] 09-08-2023 11:26-0500 Body mass index (BMI) [Ratio] 38.58 kg/m2 Jeanie Ayala MD Work Phone: [facility] 09-08-2023 11:26-0500 Body weight 72.58 kg Jeanie Ayala MD Work Phone: [facility] 09-08-2023 11:26-0500 Diastolic blood pressure 80 mm[Hg] Jeanie Ayala MD Work Phone: [facility] [place] 09-08-2023 11:26-0500 Heart rate 69 /min Jeanie Ayala MD Work Phone: [facility] [place] 09-08-2023 11:26-0500 Systolic blood pressure 132 mm[Hg] Jeanie Ayaal MD Work Phone: [facility] [place] 08-25-2023 09:24-0500 Body height 137.2 cm Abhi Richards DO Work Phone: [facility] [place] 08-25-2023 09:24-0500 Body mass index (BMI) [Ratio] 38.58 kg/m2 Abhi Richards DO Work Phone: [facility] [place] 08-25-2023 09:24-0500 Body temperature 97.59 [degF] Abhi Richards DO Work Phone: [facility] [place] 08-25-2023 09:24-0500 Body weight 72.58 kg Abhi Richards DO Work Phone: [facility] [place] 08-25-2023 09:24-0500 Diastolic blood pressure 83 mm[Hg] Abhi Richards DO Work Phone: [facility] [place] 08-25-2023 09:24-0500 Heart rate 76 /min Abhi Richards DO Work Phone: [facility] [place] 08-25-2023 09:24-0500 Respiratory rate 16 /min Abhi Richards DO Work Phone: [facility] [place] 08-25-2023 09:24-0500 SaO2% (BldA) [Mass fraction] 96 % Abhi Richards DO Work Phone: [facility] [place] 08-25-2023 09:24-0500 Systolic blood pressure 161 mm[Hg] Abhi Richards DO Work Phone: [facility] [place] 08-19-2023 10:48-0400 Body height 139.7 cm Valentina Chopra MD Work Phone: [facility] [employer] 08-19-2023 10:48-0400 Body mass index (BMI) [Ratio] 37.19 kg/m2 Valentina Chopra MD Work Phone: [facility] [employer] 08-19-2023 10:48-0400 Body weight 72.58 kg Valentina Chopra MD Work Phone: [facility] 08-19-2023 10:48-0400 Diastolic blood pressure 90 mm[Hg] Valentina Chopra MD Work Phone: [facility] 08-19-2023 10:48-0400 Heart rate 75 /min Valentina Chopra MD Work Phone: [facility] 08-19-2023 10:48-0400 Systolic blood pressure 142 mm[Hg] Valentina Chopra MD Work Phone: [facility] 08-16-2023 10:47-0400 Body mass index (BMI) [Ratio] 38.1 kg/m2 Matthew Pérez MD Work Phone: [facility] [place] 08-16-2023 10:47-0400 Body weight 71.67 kg Matthew Pérez MD Work Phone: [facility] [place] 08-16-2023 10:47-0400 Diastolic blood pressure 70 mm[Hg] Matthew Pérez MD Work Phone: [facility] [place] 08-16-2023 10:47-0400 Systolic blood pressure 160 mm[Hg] Matthew Pérez MD Work Phone: [facility] [place] 08-13-2023 10:56-0400 Diastolic blood pressure 60 mm[Hg] Lopez Gutierrez DO Work Phone: [facility] [place] 10-27-2023 10:56-0400 Heart rate 75 /min Lopez Hernandezersen DO Work Phone: [facility] [place] 08-13-2023 10:56-0400 Respiratory rate 16 /min Lopez Gutierrez DO Work Phone: [facility] [place] 08-13-2023 10:56-0400 SaO2% (BldA) [Mass fraction] 98 % Lopez Hernandezersen DO Work Phone: [facility] [place] 08-13-2023 10:56-0400 Systolic blood pressure 144 mm[Hg] Lopez Hernandezersen DO Work Phone: [facility] [place] 08-13-2023 07:20-0400 Body height 137.2 cm Lopez Hernandezersen DO Work Phone: [facility] [place] 08-13-2023 07:20-0400 Body mass index (BMI) [Ratio] 38.27 kg/m2 Lopez Gutierrez DO Work Phone: [facility] [place] 08-13-2023 07:20-0400 Body temperature 97 [degF] Lopez Hernandezersen DO Work Phone: [facility] [place] 08-13-2023 07:20-0400 Body weight 72 kg Lopez Gutierrez DO Work Phone: [facility] [place] 08-11-2023 09:18-0400 Body height 139.7 cm Jeanie Ayala MD Work Phone: [facility] [place] 08-11-2023 09:18-0400 Body mass index (BMI) [Ratio] 39.74 kg/m2 Jeanie Ayala MD Work Phone: [facility] [place] 08-11-2023 09:18-0400 Body weight 77.56 kg Jeanie Ayala MD Work Phone: [facility] [place] 08-11-2023 09:18-0400 Diastolic blood pressure 81 mm[Hg] Jeanie Ayala MD Work Phone: [facility] [place] 08-11-2023 09:18-0400 Heart rate 72 /min Jeanie Ayala MD Work Phone: [facility] [place] 08-11-2023 09:18-0400 Systolic blood pressure 117 mm[Hg] Jeanie Ayala MD Work Phone: [facility] [place] 07-25-2023 14:00-0400 Diastolic blood pressure 92 mm[Hg] Caren Gilman DO Work Phone: [facility] [place] 07-25-2023 14:00-0400 Respiratory rate 17 /min Caren Gilman DO Work Phone: [facility] [place] 07-25-2023 14:00-0400 Systolic blood pressure 161 mm[Hg] Caren Gilman DO Work Phone: [phone](907)[phone] [place] [address] 07-24-2023 23:30-0400 Heart rate 85 /min Caren Gilman DO Work Phone: 0(201)[phone] [place] [address] 07-24-2023 23:30-0400 SaO2% (BldA) [Mass fraction] 95 % Caren Gilman DO Work Phone: [facility] [place] 07-24-2023 23:04-0400 Body height 139.7 cm Caren Gilman DO Work Phone: [facility] [place] 07-24-2023 23:04-0400 Body mass index (BMI) [Ratio] 40.02 kg/m2 Caren Gilman DO Work Phone: [facility] [place] 07-24-2023 23:04-0400 Body temperature 97.2 [degF] Caren Gilman DO Work Phone: [facility] [place] 07-24-2023 23:04-0400 Body weight 78.11 kg Caren Gilman DO Work Phone: [facility] [place] 07-16-2023 03:00-0400 Diastolic blood pressure 95 mm[Hg] Jeanie Ayala Other Phone: [facility] 07-16-2023 03:00-0400 Systolic blood pressure 160 mm[Hg] Jeanie Ayala Other Phone: [facility] 07-16-2023 02:30-0400 Heart rate 73 /min Jeanie Ayala Other Phone: [facility] 07-16-2023 02:30-0400 Respiratory rate 16 /min Jeanie Ayala Other Phone: [facility] 07-16-2023 02:30-0400 SaO2% (BldA) [Mass fraction] 95 % Jeanie Ayala Other Phone: [facility] 07-13-2023 09:18-0400 Body height 139.7 cm Jeanie Ayala MD Work Phone: [facility] [place] 07-13-2023 09:18-0400 Body mass index (BMI) [Ratio] 41.84 kg/m2 Jeanie Ayala MD Work Phone: [facility] [place] 07-13-2023 09:18-0400 Body weight 81.65 kg Jeanie Ayala MD Work Phone: [facility] [place] 07-13-2023 09:18-0400 Diastolic blood pressure 88 mm[Hg] Jeanie Ayala MD Work Phone: [facility] [place] 07-13-2023 09:18-0400 Heart rate 64 /min Jeanie Ayala MD Work Phone: [facility] [place] 07-13-2023 09:18-0400 Systolic blood pressure 132 mm[Hg] Jeanie Ayala MD Work Phone: [facility] [place] 06-14-2023 08:24-0400 Diastolic blood pressure 82 mm[Hg] Jeanie Ayala Other Phone: [facility] 06-14-2023 08:24-0400 Heart rate 70 /min Jeanie Ayala Other Phone: [facility] 06-14-2023 08:24-0400 Respiratory rate 16 /min Jeanie Ayala Other Phone: [facility] 06-14-2023 08:24-0400 SaO2% (BldA) [Mass fraction] 98 % Jeanie Ayala Other Phone: [facility] 06-14-2023 08:24-0400 Systolic blood pressure 158 mm[Hg] Jeanie Ayala Other Phone: [facility] 05-04-2023 09:46-0400 Body height 139.7 cm Jeanie Ayala MD Work Phone: [facility] [place] 05-04-2023 09:46-0400 Body mass index (BMI) [Ratio] 41.84 kg/m2 Jeanie Ayala MD Work Phone: [facility] [place] 05-04-2023 09:46-0400 Body weight 81.65 kg Jeanie Ayala MD Work Phone: [facility] [place] 05-04-2023 09:46-0400 Diastolic blood pressure 76 mm[Hg] Jeanie Ayala MD Work Phone: [facility] [place] 05-04-2023 09:46-0400 Heart rate 72 /min Jeanie Ayala MD Work Phone: [facility] [place] 05-04-2023 09:46-0400 Systolic blood pressure 110 mm[Hg] Jeanie Ayala MD Work Phone: [facility] [place] 04-30-2023 10:44-0400 Body height 139.7 cm Jeanie Ayala Work Phone: [address] Work Phone: 04-30-2023 10:44-0400 Diastolic blood pressure 72 mm[Hg] Jeanie Puma [place] Work Phone: [place] [address] [address] Work Phone: 04-30-2023 10:44-0400 Systolic blood pressure 118 mm[Hg] Jeanie Puma Tavallaee Work Phone: [place] [address] [address] Work Phone: 04-05-2023 13:20-0400 Body height 139.7 cm Jeanie Puma Tavallaee Work Phone: [place] [address] [address] Work Phone: 04-05-2023 13:20-0400 Body mass index (BMI) [Ratio] 40.67 kg/m2 Jeanie Puma Pimentelallaee Work Phone: [place] [address] [address] Work Phone: 04-05-2023 13:20-0400 Body surface area Derived from formula 1.66 m2 Jeanie Puma Tavallaee Work Phone: [place] [address] [address] Work Phone: 04-05-2023 13:20-0400 Body weight 79.38 kg Jeanie Puma Pimentelallaee Work Phone: [address] Work Phone: 04-05-2023 13:20-0400 Diastolic blood pressure 82 mm[Hg] Jeanie Puma Tavallaee Work Phone: [place] [address] [address] Work Phone: 04-05-2023 13:20-0400 Systolic blood pressure 120 mm[Hg] Jeanie Puma Tavallaee Work Phone: [place] [address] [address] Work Phone: 04-01-2023 07:00-0400 Diastolic blood pressure 97 mm[Hg] Jeanie Tavallaee Other Phone: [facility] 04-01-2023 07:00-0400 Heart rate 101 /min Jeanie Tavallaee Other Phone: [facility] 04-01-2023 07:00-0400 Respiratory rate 16 /min Jeanie Tavallaee Other Phone: [facility] 04-01-2023 07:00-0400 SaO2% (BldA) [Mass fraction] 99 % Jeanie Tavallaee Other Phone: [facility] 04-01-2023 07:00-0400 Systolic blood pressure 148 mm[Hg] Jeanie Tavallaee Other Phone: [facility] 04-01-2023 02:35-0400 Body height 139.7 cm Jeanie Pimentelallaedarrell Other Phone: [facility] 04-01-2023 02:35-0400 Body temperature 97.34 [degF] Jeanie Tavallaee Other Phone: [facility] 04-01-2023 02:35-0400 Body weight 79.5 kg Jeanie Tavallaee Other Phone: [facility] 02-25-2023 13:57-0400 Body height 139.7 cm Jeanie Ayala MD Work Phone: [facility] [place] 02-25-2023 13:57-0400 Body mass index (BMI) [Ratio] 41.84 kg/m2 Jeanie Ayala MD Work Phone: [facility] [place] 02-25-2023 13:57-0400 Body weight 81.65 kg Jeanie Ayala MD Work Phone: [facility] [place] 02-25-2023 13:57-0400 Diastolic blood pressure 102 mm[Hg] Jeanie Tavallaee MD Work Phone: [facility] [place] 02-25-2023 13:57-0400 Heart rate 70 /min Jeanie Ayala MD Work Phone: [facility] [place] 02-25-2023 13:57-0400 Systolic blood pressure 178 mm[Hg] Jeanie Ayala MD Work Phone: [facility] [place] 02-24-2023 10:45-0400 Diastolic blood pressure 90 mm[Hg] Jeanie Ayala Work Phone: [facility] DO Work Phone: 02-24-2023 10:45-0400 Heart rate 92 /min Jeanie Ayala Work Phone: [facility] DO Work Phone: 02-24-2023 10:45-0400 SaO2% (BldA) [Mass fraction] 93 % Jeanie Ayala Work Phone: [facility] DO Work Phone: 02-24-2023 10:45-0400 Systolic blood pressure 148 mm[Hg] Jeanie Ayala Work Phone: [facility] DO Work Phone: 01-26-2023 11:29-0400 Body mass index (BMI) [Ratio] 40.77 kg/m2 Jeanie Ayala Work Phone: [facility] DO Work Phone: 01-26-2023 11:29-0400 Body surface area Derived from formula 1.66 m2 Jeanie Ayala Work Phone: [facility] DO Work Phone: 01-26-2023 11:29-0400 Body weight 79.56 kg Jeanie M Tavallaee Work Phone: [facility] DO Work Phone: 01-26-2023 11:29-0400 Diastolic blood pressure 60 mm[Hg] Jeanie M Tavallaee Work Phone: [facility] DO Work Phone: 01-26-2023 11:29-0400 Heart rate 88 /min Jeanie M Tavallaee Work Phone: [facility] DO Work Phone: 01-26-2023 11:29-0400 SaO2% (BldA) [Mass fraction] 94 % Jeanie M Tavallaee Work Phone: [facility] DO Work Phone: 01-26-2023 11:29-0400 Systolic blood pressure 92 mm[Hg] Jeanie M Tavallaee Work Phone: [facility] DO Work Phone: 01-21-2023 20:02-0400 Diastolic blood pressure 91 mm[Hg] Jeanie Tavallaee Other Phone: [facility] 01-21-2023 20:02-0400 Heart rate 84 /min Jeanie Tavallaee Other Phone: [facility] 01-21-2023 20:02-0400 Respiratory rate 16 /min Jaenie Tavallaee Other Phone: [facility] 01-21-2023 20:02-0400 SaO2% (BldA) [Mass fraction] 94 % Jeanie Tavallaee Other Phone: [facility] 01-21-2023 20:02-0400 Systolic blood pressure 138 mm[Hg] Jeanie Tavallaee Other Phone: [facility] 01-21-2023 18:32-0400 Body temperature 97.16 [degF] Jeanie Tavallaee Other Phone: [facility] 01-21-2023 18:32-0400 Body weight 79 kg Jeanie Tavallaee Other Phone: [facility] 01-08-2023 00:00-0400 Diastolic blood pressure 96 mm[Hg] Jeanie Tavallaee Other Phone: [facility] 01-08-2023 00:00-0400 Heart rate 107 /min Jeanie Tavallaee Other Phone: [facility] 01-08-2023 00:00-0400 Respiratory rate 16 /min Jeanie Tavallaee Other Phone: [facility] 01-08-2023 00:00-0400 SaO2% (BldA) [Mass fraction] 95 % Jeanie Tavallaee Other Phone: [facility] 01-08-2023 00:00-0400 Systolic blood pressure 182 mm[Hg] Jeanie Tavallaee Other Phone: [facility] 01-07-2023 19:17-0400 Body height 154.9 cm Jeanie Tavallaee Other Phone: [facility] 01-07-2023 19:17-0400 Body temperature 99.68 [degF] Jeanie Tavallaee Other Phone: [facility] 01-07-2023 19:17-0400 Body weight 72.7 kg Jeanie Tavallaee Other Phone: [facility] 01-07-2023 08:26-0400 Body temperature 100.94 [degF] Jeanie Tavallaee Other Phone: [facility] 01-07-2023 08:26-0400 Diastolic blood pressure 75 mm[Hg] Jeanie Tavallaee Other Phone: [facility] 01-07-2023 08:26-0400 Heart rate 106 /min Jeanie Tavallaee Other Phone: [facility] 01-07-2023 08:26-0400 Respiratory rate 18 /min Jeanie Tavallaee Other Phone: [facility] 01-07-2023 08:26-0400 SaO2% (BldA) [Mass fraction] 96 % Jeanie Tavallaee Other Phone: [facility] 01-07-2023 08:26-0400 Systolic blood pressure 168 mm[Hg] Jeanie Tavallaee Other Phone: [facility] 01-01-2023 05:49-0400 Body height 149.8 cm Jeanie Tavallaee Other Phone: [facility] 01-01-2023 05:49-0400 Body temperature 97.16 [degF] Jeanie Tavallaee Other Phone: [facility] 01-01-2023 05:49-0400 Body weight 77.8 kg Jeanie Tavallaee Other Phone: [facility] 01-01-2023 05:49-0400 Diastolic blood pressure 78 mm[Hg] Jeanie Tavallaee Other Phone: [facility] 01-01-2023 05:49-0400 Heart rate 77 /min Jeanie Tavallaee Other Phone: [facility] 01-01-2023 05:49-0400 Respiratory rate 20 /min Jeanie Tavallaee Other Phone: [facility] 01-01-2023 05:49-0400 SaO2% (BldA) [Mass fraction] 98 % Jeanie Tavallaee Other Phone: [facility] 01-01-2023 05:49-0400 Systolic blood pressure 161 mm[Hg] Jeanie Tavallaee Other Phone: [facility] 12-23-2022 11:21-0500 Body height 139.7 cm Jeanie M Tavallaee Work Phone: [facility] [address] Work Phone: 12-23-2022 11:21-0500 Body mass index (BMI) [Ratio] Patient Reason Not Done Jeanie M Tavallaee Work Phone: [facility] [address] Work Phone: 12-23-2022 11:21-0500 Diastolic blood pressure 76 mm[Hg] Jeanie M Tavallaee Work Phone: [facility] 300 Work Phone: 12-23-2022 11:21-0500 Heart rate 76 /min Jeanie M Tavallaee Work Phone: [facility] 300 Work Phone: 12-23-2022 11:21-0500 SaO2% (BldA) [Mass fraction] 96 % Jeanie M Tavallaee Work Phone: [facility] 300 Work Phone: 12-23-2022 11:21-0500 Systolic blood pressure 118 mm[Hg] Jeanie M Tavallaee Work Phone: [facility] [address] Work Phone: 12-23-2022 09:38-0500 Body height 139.7 cm Jeanie M Tavlucianoaee Work Phone: [facility] [address] Work Phone: 12-23-2022 09:38-0500 Body mass index (BMI) [Ratio] 41.84 kg/m2 Jeanieizaiah Pimentellucianoaee Work Phone: [facility] [address] Work Phone: 12-23-2022 09:38-0500 Body surface area Derived from formula 1.68 m2 Jeanieizaiah Goaee Work Phone: [facility] [address] Work Phone: 12-23-2022 09:38-0500 Body temperature 97.3 [degF] Jeanieizaiah Pimentellucianoaee Work Phone: [facility] [address] Work Phone: 12-23-2022 09:38-0500 Body weight 81.65 kg Jeanie Puma Goaee Work Phone: [facility] [address] Work Phone: 12-15-2022 10:27-0500 Diastolic blood pressure 62 mm[Hg] Jeanieizaiah Goaee Work Phone: [facility] Work Phone: 12-15-2022 10:27-0500 Heart rate 78 /min Jeanieizaiah Goaee Work Phone: [facility] Work Phone: 12-15-2022 10:27-0500 Systolic blood pressure 118 mm[Hg] Jeanie Goaee Work Phone: [facility] Work Phone: 12-07-2022 08:06-0500 Diastolic blood pressure 81 mm[Hg] Jeanie Tavallaee Other Phone: [facility] 12-07-2022 08:06-0500 Heart rate 81 /min Jeanie Tavallaee Other Phone: [facility] 12-07-2022 08:06-0500 Respiratory rate 18 /min Jeanie Tavallaee Other Phone: [facility] 12-07-2022 08:06-0500 SaO2% (BldA) [Mass fraction] 96 % Jeanie Tavallaee Other Phone: [facility] 12-07-2022 08:06-0500 Systolic blood pressure 120 mm[Hg] Jeanie Tavallaee Other Phone: [facility] 12-07-2022 05:00-0500 Body temperature 97.88 [degF] Jeanie Tavallaee Other Phone: [facility] 12-07-2022 03:29-0500 Body height 139.7 cm Jeanie Tavallaee Other Phone: [facility] 12-07-2022 03:29-0500 Body weight 77.2 kg Jeanie Tavallaee Other Phone: [facility] 11-26-2022 21:00-0500 Diastolic blood pressure 88 mm[Hg] Jeanie Tavallaee Other Phone: [facility] 11-26-2022 21:00-0500 Heart rate 88 /min Jeanie Tavallaee Other Phone: [facility] 11-26-2022 21:00-0500 Respiratory rate 17 /min Jeanie Tavallaee Other Phone: [facility] 11-26-2022 21:00-0500 SaO2% (BldA) [Mass fraction] 97 % Jeanie Tavallaee Other Phone: [facility] 11-26-2022 21:00-0500 Systolic blood pressure 138 mm[Hg] Jeanie Tavallaee Other Phone: [facility] 11-26-2022 17:05-0500 Body height 139.7 cm Jeanie Tavallaee Other Phone: [facility] 11-26-2022 17:05-0500 Body temperature 97.7 [degF] Jeanie Tavallaee Other Phone: [facility] 11-26-2022 17:05-0500 Body weight 81.8 kg Jeanie Tavallaee Other Phone: [facility] 11-25-2022 11:09-0500 Diastolic blood pressure 58 mm[Hg] Jeanie M Tavallaee Work Phone: [facility]jar[facility] [address] Work Phone: 11-25-2022 11:09-0500 Heart rate 90 /min Jeanie M Tavallaee Work Phone: [facility]Ywvjxkocyd[facility]Stqg [address] Work Phone: 11-25-2022 11:09-0500 SaO2% (BldA) [Mass fraction] 96 % Jeanie M Tavallaee Work Phone: [facility]Jnnbdtixrb-Tdqe [address] Work Phone: 11-25-2022 11:09-0500 Systolic blood pressure 90 mm[Hg] Jeanie M Tavallaee Work Phone: [facility]Tygpfantha[facility]Khgn [address] Work Phone: 11-10-2022 10:25-0500 Body height 139.7 cm Jeanie M Tavallaee Work Phone: [facility] Work Phone: 11-10-2022 10:25-0500 Body mass index (BMI) [Ratio] 41.84 kg/m2 Jeanie Puma Pimentelallaee Work Phone: [facility] Work Phone: 11-10-2022 10:25-0500 Body surface area Derived from formula 1.68 m2 Jeanie Puma Tavallaee Work Phone: [facility] Work Phone: 11-10-2022 10:25-0500 Body temperature 97.4 [degF] Jeanieizaiah Pimentelallaee Work Phone: [facility] Work Phone: 11-10-2022 10:25-0500 Body weight 81.65 kg Jeanie Pimentelallaee Work Phone: [facility] Work Phone: 11-05-2022 12:01-0500 Body height 139.7 cm Jeanie Puma Pimentelallaee Work Phone: EM-Tjeutzrjyc-Tzfn [address] Work Phone: 11-05-2022 12:01-0500 Body mass index (BMI) [Ratio] 40.36 kg/m2 Jeanie M Tavallaee Work Phone: [facility]Afskosqtvg-Lsof [address] Work Phone: 11-05-2022 12:01-0500 Body surface area Derived from formula 1.7 m2 Jeanie Puma Tavallaee Work Phone: CO-Jycqprubfm-Gxnk [address] Work Phone: 11-05-2022 12:01-0500 Body weight 81.65 kg Jeanie Puma Tavallaee Work Phone: OC-Gjkbtystmk-Ybol [address] Work Phone: 11-05-2022 12:01-0500 Diastolic blood pressure 74 mm[Hg] Jeanie Puma Tavallaee Work Phone: SI-Enaxfzclpi-Vafq [address] Work Phone: 11-05-2022 12:01-0500 Heart rate 85 /min Jeanie Puma Tavallaee Work Phone: XO-Mcqtlqkvjb-Utpi [address] Work Phone: 11-05-2022 12:01-0500 SaO2% (BldA) [Mass fraction] 97 % Jeanie Puma Tavallaee Work Phone: SE-Zwrgoldehx-Nhts [address] Work Phone: 11-05-2022 12:01-0500 Systolic blood pressure 120 mm[Hg] Jeanie M Tavallaee Work Phone: RN-Raueqtcprh-Reth [address] Work Phone: 09-16-2022 10:11-0500 Body temperature 97.3 [degF] Jeanie Pimentelallaee Work Phone: [facility] 300 Work Phone: 09-15-2022 09:30-0500 Body height 142.24 cm Jeanie Puma Pimentelallaee Work Phone: [facility] Work Phone: 09-15-2022 09:30-0500 Body mass index (BMI) [Ratio] 40.58 kg/m2 Jeanie Puma Tavallaee Work Phone: [facility] Work Phone: 09-15-2022 09:30-0500 Body surface area Derived from formula 1.7 m2 Jeanie Puma Tavallaee Work Phone: [facility] Work Phone: 09-15-2022 09:30-0500 Body weight 82.1 kg Jeanie M Tavallaee Work Phone: [facility] Work Phone: 09-15-2022 09:30-0500 Diastolic blood pressure 82 mm[Hg] Jeanie M Tavallaee Work Phone: [facility] Work Phone: 09-15-2022 09:30-0500 Heart rate 88 /min Jeanie M Tavallaee Work Phone: [facility] Work Phone: 09-15-2022 09:30-0500 Systolic blood pressure 126 mm[Hg] Jeanie M Tavallaee Work Phone: [facility] Medicine Work Phone: 08-24-2022 12:00-0500 Diastolic blood pressure 97 mm[Hg] Jeanie Tavallaee Other Phone: [facility] 08-24-2022 12:00-0500 Heart rate 78 /min Jeanie Tavallaee Other Phone: [facility] 08-24-2022 12:00-0500 Respiratory rate 17 /min Jeanie Tavallaee Other Phone: [facility] 08-24-2022 12:00-0500 SaO2% (BldA) [Mass fraction] 96 % Jeanie Tavallaee Other Phone: [facility] 08-24-2022 12:00-0500 Systolic blood pressure 155 mm[Hg] Jeanie Tavallaee Other Phone: [facility] 08-24-2022 09:23-0500 Body height 139.7 cm Jeanie Tavallaee Other Phone: [facility] 08-24-2022 09:23-0500 Body temperature 97.7 [degF] Jeanie Tavallaee Other Phone: [facility] 08-24-2022 09:23-0500 Body weight 81.8 kg Jeanie Tavallaee Other Phone: [facility] 08-19-2022 10:23-0400 Body height 142.24 cm Jeanie M Tavallaee Work Phone: [facility] 300 Work Phone: 08-19-2022 10:23-0400 Body mass index (BMI) [Ratio] 40.58 kg/m2 Jeanie M Tavallaee Work Phone: [facility] 300 Work Phone: 08-19-2022 10:23-0400 Body surface area Derived from formula 1.7 m2 Jeanie M Tavallaee Work Phone: [facility] 300 Work Phone: 08-19-2022 10:23-0400 Body temperature 97.8 [degF] Jeanie M Tavallaee Work Phone: [facility] 300 Work Phone: 08-19-2022 10:23-0400 Body weight 82.1 kg Jeanie M Tavallaee Work Phone: [facility] 300 Work Phone: 08-18-2022 09:22-0400 Body height 142.24 cm Jeanie M Tavallaee Work Phone: [facility] Work Phone: 08-18-2022 09:22-0400 Body mass index (BMI) [Ratio] 40.58 kg/m2 Jeanie M Tavallaee Work Phone: [facility] Work Phone: 08-18-2022 09:22-0400 Body surface area Derived from formula 1.7 m2 Jeanie M Tavallaee Work Phone: [facility] Medicine Work Phone: 08-18-2022 09:22-0400 Body weight 82.1 kg Jeanie M Tavallaee Work Phone: [facility] Medicine Work Phone: 08-18-2022 09:22-0400 Diastolic blood pressure 84 mm[Hg] Jeanie M Tavallaee Work Phone: [facility] Work Phone: 08-18-2022 09:22-0400 Heart rate 90 /min Jeanie M Tavallaee Work Phone: [facility] Work Phone: 08-18-2022 09:22-0400 SaO2% (BldA) [Mass fraction] 97 % Jeanie M Tavallaee Work Phone: [facility] Work Phone: 08-18-2022 09:22-0400 Systolic blood pressure 129 mm[Hg] Jeanie M Tavallaee Work Phone: [facility] Work Phone: 07-21-2022 09:16-0400 Body mass index (BMI) [Ratio] Medical Reason Not Done Jeanie M Tavallaee Work Phone: [facility] Work Phone: 07-21-2022 09:16-0400 Diastolic blood pressure 93 mm[Hg] Jeanie M Tavallaee Work Phone: [facility] Work Phone: 07-21-2022 09:16-0400 Heart rate 101 /min Jeanie M Tavallaee Work Phone: [facility] Work Phone: 07-21-2022 09:16-0400 Systolic blood pressure 143 mm[Hg] Jeanie M Tavallaee Work Phone: [facility] Work Phone: 07-15-2022 13:07-0400 Body height 142.24 cm Jeanie M Tavallaee Work Phone: [facility] 300 Work Phone: 07-15-2022 13:07-0400 Body temperature 98.2 [degF] Jeanie M Tavallaee Work Phone: [facility] 300 Work Phone: 06-30-2022 13:05-0400 Body height 142.24 cm Jeanie M Tavallaee Work Phone: [facility] Medicine Work Phone: 06-30-2022 13:05-0400 Diastolic blood pressure 81 mm[Hg] Jeanie M Tavallaee Work Phone: [facility] Work Phone: 06-30-2022 13:05-0400 Heart rate 101 /min Jeanie M Tavallaee Work Phone: [facility] Work Phone: 06-30-2022 13:05-0400 Systolic blood pressure 122 mm[Hg] Jeanie M Tavallaee Work Phone: [facility] Work Phone: 05-10-2022 06:30-0400 Diastolic blood pressure 86 mm[Hg] Jeanie Tavallaee Other Phone: [facility] 05-10-2022 06:30-0400 Heart rate 70 /min Jeanie Tavallaee Other Phone: [facility] 05-10-2022 06:30-0400 Respiratory rate 16 /min Jeanie Tavallaee Other Phone: [facility] 05-10-2022 06:30-0400 SaO2% (BldA) [Mass fraction] 95 % Jeanie Tavallaee Other Phone: [facility] 05-10-2022 06:30-0400 Systolic blood pressure 158 mm[Hg] Jeanie Tavallaee Other Phone: [facility] 05-05-2022 13:45-0400 Body height 142.24 cm Jeanie M Tavallaee Work Phone: [facility] Work Phone: 05-05-2022 13:45-0400 Body mass index (BMI) [Ratio] 40.8 kg/m2 Jeanie M Tavallaee Work Phone: [facility] Work Phone: 05-05-2022 13:45-0400 Body surface area Derived from formula 1.71 m2 Jeanie M Tavallaee Work Phone: [facility] Work Phone: 05-05-2022 13:45-0400 Body weight 82.55 kg Jeanie M Tavallaee Work Phone: [facility] Work Phone: 05-05-2022 13:45-0400 Diastolic blood pressure 80 mm[Hg] Jeanie M Tavallaee Work Phone: [facility] Work Phone: 05-05-2022 13:45-0400 Heart rate 80 /min Jeanie M Tavallaee Work Phone: [facility] Work Phone: 05-05-2022 13:45-0400 Systolic blood pressure 108 mm[Hg] Jeanie Puma Tavallaee Work Phone: [facility] Work Phone: 04-06-2022 12:40-0400 Body height 142.24 cm Jeanie Puma Tavallaee Work Phone: [facility] Work Phone: 04-06-2022 12:40-0400 Body mass index (BMI) [Ratio] 40.8 kg/m2 Jeanie Puma Tavallaee Work Phone: [facility] Work Phone: 04-06-2022 12:40-0400 Body surface area Derived from formula 1.71 m2 Jeanie Puma Tavallaee Work Phone: [facility] Work Phone: 04-06-2022 12:40-0400 Body weight 82.56 kg Jeanie Puma Pimenetlallaee Work Phone: [facility] Work Phone: 04-06-2022 12:40-0400 Diastolic blood pressure 80 mm[Hg] Jenaie Puma Tavallaee Work Phone: [facility] Work Phone: 04-06-2022 12:40-0400 Heart rate 82 /min Jeanie Puma Tavallaee Work Phone: [facility] Work Phone: 04-06-2022 12:40-0400 SaO2% (BldA) [Mass fraction] 96 % Jeanie Puma Tavallaee Work Phone: [facility] Work Phone: 04-06-2022 12:40-0400 Systolic blood pressure 108 mm[Hg] Jeanie Puma Tavallaee Work Phone: [facility] Work Phone: 03-04-2022 11:54-0400 Body height 142.24 cm Jeanie M Tavallaee Work Phone: [facility] Work Phone: 03-04-2022 11:54-0400 Body mass index (BMI) [Ratio] 41.03 kg/m2 Jeanie M Tavallaee Work Phone: [facility] Work Phone: 03-04-2022 11:54-0400 Body surface area Derived from formula 1.71 m2 Jeanie M Tavallaee Work Phone: [facility] Work Phone: 03-04-2022 11:54-0400 Body weight 83 kg Jeanie M Tavallaee Work Phone: [facility] Work Phone: 03-04-2022 11:54-0400 Diastolic blood pressure 76 mm[Hg] Jeanie M Tavallaee Work Phone: [facility] Work Phone: 03-04-2022 11:54-0400 Heart rate 76 /min Jeanie M Tavallaee Work Phone: [facility] Work Phone: 03-04-2022 11:54-0400 Systolic blood pressure 120 mm[Hg] Jeanie M Tavallaee Work Phone: [facility] Work Phone: 02-04-2022 11:27-0400 Body height 142.24 cm Jeanie M Tavallaee Work Phone: [facility] Work Phone: 02-04-2022 11:27-0400 Body mass index (BMI) [Ratio] 41.03 kg/m2 Jeanie M Tavallaee Work Phone: [facility] Work Phone: 02-04-2022 11:27-0400 Body surface area Derived from formula 1.71 m2 Jeanie Puma Tavallaee Work Phone: [facility] Work Phone: 02-04-2022 11:27-0400 Body weight 83.01 kg Jeanie Puma Pimentelallaee Work Phone: [facility] Work Phone: 02-04-2022 11:27-0400 Diastolic blood pressure 78 mm[Hg] Jeanie M Tavallaee Work Phone: [facility] Work Phone: 02-04-2022 11:27-0400 Heart rate 86 /min Jeanieizaiah Pimentelallaee Work Phone: [facility] Work Phone: 02-04-2022 11:27-0400 Systolic blood pressure 108 mm[Hg] Jeanieizaiah Pimentelallaee Work Phone: [facility] Work Phone: 01-07-2022 11:48-0400 Body height 142.24 cm Jeanie Pimentelallaee Work Phone: [facility] Work Phone: 01-07-2022 11:48-0400 Body mass index (BMI) [Ratio] 41.25 kg/m2 Jeanie Puma Pimentelallaee Work Phone: [facility] Work Phone: 01-07-2022 11:48-0400 Body surface area Derived from formula 1.71 m2 Jeanie Puma Tavallaee Work Phone: [facility] Work Phone: 01-07-2022 11:48-0400 Body weight 83.46 kg Jeanie M Tavallaee Work Phone: [facility] Work Phone: 01-07-2022 11:48-0400 Diastolic blood pressure 76 mm[Hg] Jeanie M Tavallaee Work Phone: [facility] Work Phone: 01-07-2022 11:48-0400 Heart rate 94 /min Jeanie M Tavallaee Work Phone: [facility] Work Phone: 01-07-2022 11:48-0400 Systolic blood pressure 110 mm[Hg] Jeanie M Tavallaee Work Phone: [facility] Work Phone: 01-07-2022 11:48-0400 21 1 Jeanie M Tavallaee Work Phone: [facility] Medicine Work Phone: Comment on above: [id number] 12-17-2021 13:41-0500 Body height 142.24 cm Jeanie M Tavallaee Work Phone: [facility] Work Phone: 12-17-2021 13:41-0500 Body mass index (BMI) [Ratio] 40.58 kg/m2 Jeanie M Tavallaee Work Phone: [facility] Work Phone: 12-17-2021 13:41-0500 Body surface area Derived from formula 1.7 m2 Jeanie M Tavallaee Work Phone: [facility] Work Phone: 12-17-2021 13:41-0500 Body weight 82.1 kg Jeanie M Tavallaee Work Phone: [facility] Work Phone: 12-17-2021 13:41-0500 Diastolic blood pressure 84 mm[Hg] Jeanie M Tavallaee Work Phone: [facility] Work Phone: 12-17-2021 13:41-0500 Heart rate 90 /min Jeanie M Tavallaee Work Phone: [facility] Work Phone: 12-17-2021 13:41-0500 Systolic blood pressure 104 mm[Hg] Jeanie M Tavallaee Work Phone: [facility] Work Phone: 12-13-2021 15:00-0500 Diastolic blood pressure 82 mm[Hg] Jeanie Tavallaee Other Phone: [facility] 12-13-2021 15:00-0500 Heart rate 93 /min Jeanie Tavallaee Other Phone: [facility] 12-13-2021 15:00-0500 Respiratory rate 16 /min Jeanie Tavallaee Other Phone: [facility] 12-13-2021 15:00-0500 SaO2% (BldA) [Mass fraction] 92 % Jeanie Tavallaee Other Phone: [facility] 12-13-2021 15:00-0500 Systolic blood pressure 136 mm[Hg] Jeanie Tavallaee Other Phone: [facility] 12-13-2021 12:34-0500 Body height 139.7 cm Jeanie Tavallaee Other Phone: [facility] 12-13-2021 12:34-0500 Body temperature 98.6 [degF] Jeanie Tavallaee Other Phone: [facility] 12-13-2021 12:34-0500 Body weight 77.3 kg Jeanie Tavallaee Other Phone: [facility] 12-08-2021 11:43-0500 Diastolic blood pressure 72 mm[Hg] Jeanie M Tavallaee Work Phone: [facility] Work Phone: 12-08-2021 11:43-0500 Heart rate 84 /min Jeanie M Tavallaee Work Phone: [facility] Work Phone: 12-08-2021 11:43-0500 Systolic blood pressure 112 mm[Hg] Jeanie M Tavallaee Work Phone: [facility] Work Phone: 12-08-2021 11:42-0500 Body height 142.24 cm Jeanie M Tavallaee Work Phone: [facility] Work Phone: 12-08-2021 11:42-0500 Body mass index (BMI) [Ratio] 39.91 kg/m2 Jeanie M Tavallaee Work Phone: [facility] Work Phone: 12-08-2021 11:42-0500 Body surface area Derived from formula 1.69 m2 Jeanie M Tavallaee Work Phone: [facility] Work Phone: 12-08-2021 11:42-0500 Body weight 80.74 kg Jeanie M Tavallaee Work Phone: [facility] Work Phone: 12-05-2021 11:45-0500 Diastolic blood pressure 69 mm[Hg] Jeanie Tavallaee Other Phone: [facility] 12-05-2021 11:45-0500 Heart rate 88 /min Jeanie Tavallaee Other Phone: [facility] 12-05-2021 11:45-0500 Respiratory rate 16 /min Jeanie Tavallaee Other Phone: [facility] 12-05-2021 11:45-0500 SaO2% (BldA) [Mass fraction] 95 % Jeanie Tavallaee Other Phone: [facility] 12-05-2021 11:45-0500 Systolic blood pressure 136 mm[Hg] Jeanie Tavallaee Other Phone: [facility] 12-05-2021 07:08-0500 Body height 139.7 cm Jeanie Tavallaee Other Phone: [facility] 12-05-2021 07:08-0500 Body temperature 97.88 [degF] Jeanie Tavallaee Other Phone: [facility] 12-05-2021 07:08-0500 Body weight 77.3 kg Jeanie Tavallaee Other Phone: [facility] 11-28-2021 00:30-0500 Diastolic blood pressure 67 mm[Hg] Jeanie Tavallaee Other Phone: [facility] 11-28-2021 00:30-0500 Heart rate 94 /min Jeanie Tavallaee Other Phone: [facility] 11-28-2021 00:30-0500 Respiratory rate 16 /min Jeanie Tavallaee Other Phone: [facility] 11-28-2021 00:30-0500 SaO2% (BldA) [Mass fraction] 95 % Jeanie Tavallaee Other Phone: [facility] 11-28-2021 00:30-0500 Systolic blood pressure 122 mm[Hg] Jeanie Tavallaee Other Phone: [facility] 11-27-2021 21:01-0500 Body temperature 98.6 [degF] Jeanie Tavallaee Other Phone: [facility] 08-12-2021 10:36-0400 Diastolic blood pressure 70 mm[Hg] Jeanie M Tavallaee Work Phone: [facility] Work Phone: 08-12-2021 10:36-0400 Systolic blood pressure 110 mm[Hg] Jeanie M Tavallaee Work Phone: [facility] Work Phone: 08-12-2021 10:22-0400 Body height 142.24 cm Jeanie M Tavallaee Work Phone: [facility] Work Phone: 08-12-2021 10:22-0400 Diastolic blood pressure 82 mm[Hg] Jeanie M Tavallaee Work Phone: [facility] Work Phone: 08-12-2021 10:22-0400 Heart rate 86 /min Jeanie M Tavallaee Work Phone: [facility] Work Phone: 08-12-2021 10:22-0400 Systolic blood pressure 118 mm[Hg] Jeanie M Tavallaee Work Phone: [facility] Work Phone: 07-17-2021 10:51-0400 Body height 142.24 cm Jeanie M Tavallaee Work Phone: [facility] Work Phone: 07-17-2021 10:51-0400 Body mass index (BMI) [Ratio] 39.91 kg/m2 Jeanie M Tavallaee Work Phone: [facility] Work Phone: 07-17-2021 10:51-0400 Body surface area Derived from formula 1.69 m2 Jeanie M Tavallaee Work Phone: [facility] Work Phone: 07-17-2021 10:51-0400 Body weight 80.74 kg Jeanie Puma Pimentelallaee Work Phone: [facility] Work Phone: 07-17-2021 10:51-0400 Diastolic blood pressure 84 mm[Hg] Jeanie M Tavallaee Work Phone: [facility] Work Phone: 07-17-2021 10:51-0400 Heart rate 68 /min Jeanieizaiah Pimentelallaee Work Phone: [facility] Work Phone: 07-17-2021 10:51-0400 Systolic blood pressure 130 mm[Hg] Jeanieizaiah Pimentelallaee Work Phone: [facility] Work Phone: 07-14-2021 12:55-0400 Body height 142.24 cm Jeanie M Tavallaee Work Phone: [place] [address] [address] Work Phone: 07-14-2021 12:55-0400 Body mass index (BMI) [Ratio] 39.91 kg/m2 Jeanie Puma Tavallaee Work Phone: [facility] [address] Work Phone: 07-14-2021 12:55-0400 Body surface area Derived from formula 1.69 m2 Jeanie Puma Tavallaee Work Phone: [place] [address] [address] Work Phone: 07-14-2021 12:55-0400 Body temperature 97.1 [degF] Jeanie M Tavallaee Work Phone[place] [id number] [address] Work Phone: 07-14-2021 12:55-0400 Body weight 80.74 kg Jeanie M Tavallaee Work Phone: [address] Work Phone: 07-14-2021 12:55-0400 Diastolic blood pressure 76 mm[Hg] Jeanie M Tavallaee Work Phone: [address] Work Phone: 07-14-2021 12:55-0400 Systolic blood pressure 126 mm[Hg] Jeanie M Tavallaee Work Phone: [address] Work Phone: 07-10-2021 09:30-0400 Diastolic blood pressure 69 mm[Hg] Jeanie Tavallaee Other Phone: [facility] 07-10-2021 09:30-0400 Heart rate 79 /min Jeanie Tavallaee Other Phone: [facility] 07-10-2021 09:30-0400 SaO2% (BldA) [Mass fraction] 94 % Jeanie Tavallaee Other Phone: [facility] 07-10-2021 09:30-0400 Systolic blood pressure 105 mm[Hg] Jeanie Tavallaee Other Phone: [facility] 07-10-2021 08:18-0400 Body temperature 97.88 [degF] Jeanie Tavallaee Other Phone: [facility] 07-10-2021 08:18-0400 Respiratory rate 20 /min Jeanie Tavallaee Other Phone: [facility] 07-01-2021 10:30-0400 Body height 142.24 cm Jeanie Puma Tavallaee Work Phone: [place] [address] [address] Work Phone: 07-01-2021 10:30-0400 Body mass index (BMI) [Ratio] 40.08 kg/m2 Jeanie Puma Tavallaee Work Phone: [place] [address] [address] Work Phone: 07-01-2021 10:30-0400 Body surface area Derived from formula 1.69 m2 Jeanie Puma Tavallaee Work Phone: [place] [address] [address] Work Phone: 07-01-2021 10:30-0400 Body temperature 98 [degF] Jeanie Puma Tavallaee Work Phone: [address] Work Phone: 07-01-2021 10:30-0400 Body weight 81.1 kg Jeanie Puma Tavallaee Work Phone: [place] [address] [address] Work Phone: 07-01-2021 10:30-0400 Diastolic blood pressure 84 mm[Hg] Jeanie Puma Tavallaee Work Phone: [place] [address] [address] Work Phone: 07-01-2021 10:30-0400 Systolic blood pressure 120 mm[Hg] Jeanie Puma Tavallaee Work Phone: [address] Work Phone: 06-24-2021 11:39-0400 Body height 142.24 cm Jeanie M Tavallaee Work Phone: [facility] Work Phone: 06-24-2021 11:39-0400 Body mass index (BMI) [Ratio] 40.13 kg/m2 Jeanie M Tavallaee Work Phone: [facility] Work Phone: 06-24-2021 11:39-0400 Body surface area Derived from formula 1.69 m2 Jeanie Puma Pimentelallaee Work Phone: [facility] Work Phone: 06-24-2021 11:39-0400 Body weight 81.19 kg Jeanie M Tavallaee Work Phone: [facility] Work Phone: 06-24-2021 11:39-0400 Diastolic blood pressure 74 mm[Hg] Jeanie Puma Pimentelallaee Work Phone: [facility] Work Phone: 06-24-2021 11:39-0400 Heart rate 94 /min Jeanieizaiah Pimentelallaee Work Phone: [facility] Work Phone: 06-24-2021 11:39-0400 Systolic blood pressure 98 mm[Hg] Jeanieizaiah Pimentelallaee Work Phone: [facility] Work Phone: 05-27-2021 13:17-0400 Body height 142.2 cm Jeanie Tavallaee Other Phone: [facility] 05-27-2021 13:17-0400 Body temperature 97.88 [degF] Jeanie Tavallaee Other Phone: [facility] 05-27-2021 13:17-0400 Diastolic blood pressure 79 mm[Hg] Jeanie Tavallaee Other Phone: [facility] 05-27-2021 13:17-0400 Heart rate 105 /min Jeanie Tavallaee Other Phone: [facility] 05-27-2021 13:17-0400 Systolic blood pressure 120 mm[Hg] Jeanie Tavallaee Other Phone: [facility] 05-19-2021 13:02-0400 Body height 142.24 cm Jeanie M Tavallaee Work Phone: [facility] Work Phone: 05-19-2021 13:02-0400 Body mass index (BMI) [Ratio] 40.13 kg/m2 Jeanie M Tavallaee Work Phone: [facility] Work Phone: 05-19-2021 13:02-0400 Body surface area Derived from formula 1.69 m2 Jeanie M Tavallaee Work Phone: [facility] Work Phone: 05-19-2021 13:02-0400 Body weight 81.19 kg Jeanie Puma Tavallaee Work Phone: [facility] Work Phone: 05-19-2021 13:02-0400 Diastolic blood pressure 78 mm[Hg] Jeanie M Tavallaee Work Phone: [facility] Work Phone: 05-19-2021 13:02-0400 Heart rate 92 /min Jeanie Puma Tavallaee Work Phone: [facility] Work Phone: 05-19-2021 13:02-0400 Systolic blood pressure 134 mm[Hg] Jeanie M Tavallaee Work Phone: [facility] Work Phone: 05-18-2021 10:36-0400 Diastolic blood pressure 91 mm[Hg] Jeanie Tavallaee Other Phone: [facility] 05-18-2021 10:36-0400 Heart rate 96 /min Jeanie Tavallaee Other Phone: [facility] 05-18-2021 10:36-0400 Respiratory rate 18 /min Jeanie Tavallaee Other Phone: [facility] 05-18-2021 10:36-0400 SaO2% (BldA) [Mass fraction] 97 % Jeanie Tavallaee Other Phone: [facility] 05-18-2021 10:36-0400 Systolic blood pressure 131 mm[Hg] Jeanie Tavallaee Other Phone: [facility] 05-18-2021 05:13-0400 Body height 142.2 cm Jeanie Tavallaee Other Phone: [facility] 05-18-2021 05:13-0400 Body temperature 98.96 [degF] Jeanie Tavallaee Other Phone: [facility] 05-18-2021 05:13-0400 Body weight 74 kg Jeanie Tavallaee Other Phone: [facility] 05-15-2021 21:00-0400 Diastolic blood pressure 53 mm[Hg] Jeanie Tavallaee Other Phone: [facility] 05-15-2021 21:00-0400 Heart rate 94 /min Jeanie Tavallaee Other Phone: [facility] 05-15-2021 21:00-0400 Respiratory rate 18 /min Jeanie Tavallaee Other Phone: [facility] 05-15-2021 21:00-0400 SaO2% (BldA) [Mass fraction] 95 % Jeanie Tavallaee Other Phone: [facility] 05-15-2021 21:00-0400 Systolic blood pressure 110 mm[Hg] Jeanie Tavallaee Other Phone: [facility] 05-15-2021 15:07-0400 Body height 144.7 cm Jeanie Tavallaee Other Phone: [facility] 05-15-2021 15:07-0400 Body temperature 99.14 [degF] Jeanie Tavallaee Other Phone: [facility] 05-15-2021 15:07-0400 Body weight 77.3 kg Jeanie Tavallaee Other Phone: [facility] 05-14-2021 16:30-0400 Diastolic blood pressure 62 mm[Hg] Jeanie Tavallaee Other Phone: [facility] 05-14-2021 16:30-0400 Heart rate 90 /min Jeanie Tavallaee Other Phone: [facility] 05-14-2021 16:30-0400 Respiratory rate 16 /min Jeanie Tavallaee Other Phone: [facility] 05-14-2021 16:30-0400 SaO2% (BldA) [Mass fraction] 96 % Jeanie Tavallaee Other Phone: [facility] 05-14-2021 16:30-0400 Systolic blood pressure 116 mm[Hg] Jeanie Tavallaee Other Phone: [facility] 05-14-2021 12:07-0400 Body temperature 99.14 [degF] Jeanie Tavallaee Other Phone: [facility] 05-14-2021 12:07-0400 Body weight 75 kg Jeanie Tavallaee Other Phone: [facility] 04-08-2021 11:29-0400 Body height 142.24 cm Jaenie M Tavallaee Work Phone: [facility] Work Phone: 04-08-2021 11:29-0400 Body mass index (BMI) [Ratio] 38.78 kg/m2 Jeanie M Tavallaee Work Phone: [facility] Work Phone: 04-08-2021 11:29-0400 Body surface area Derived from formula 1.67 m2 Jeanie Puma Tavallaee Work Phone: [facility] Work Phone: 04-08-2021 11:29-0400 Body weight 78.47 kg Jeanie Puma Pimentelallaee Work Phone: [facility] Work Phone: 04-08-2021 11:29-0400 Diastolic blood pressure 80 mm[Hg] Jeanie Puma [place] Work Phone: [facility] Work Phone: 04-08-2021 11:29-0400 Heart rate 100 /min Jeanie Puma Pimentel[place]ee Work Phone: [facility] Work Phone: 04-08-2021 11:29-0400 Systolic blood pressure 124 mm[Hg] Jeanie Puma [place] Work Phone: [facility] Work Phone: 04-07-2021 10:08-0400 Body height 142.24 cm Jeanie Puma [place] Work Phone: [employer] [place] [address] Work Phone: 04-07-2021 10:08-0400 Body temperature 98 [degF] Jeanie Puma [place] Work Phone: [facility] [address] Work Phone: 04-07-2021 10:08-0400 Diastolic blood pressure 82 mm[Hg] Jeanie Ayala Work Phone: [employer] [place] [address] [employer] Work Phone: 04-07-2021 10:08-0400 Systolic blood pressure 122 mm[Hg] Jeanie Ayala Work Phone: [employer] [place] [address] [employer] Work Phone: 12-18-2020 13:00-0500 BP Diastolic 73 mm[Hg] Julian Galeana [facility] 12-18-2020 13:00-0500 BP Systolic 107 mm[Hg] Julian Galeana [facility] 12-18-2020 13:00-0500 Height 144.8 cm Juliancesar Galeana [facility] 12-18-2020 13:00-0500 Pulse (Heart Rate) 85 /min Julian Galeana [facility] 12-18-2020 13:00-0500 Pulse Oximetry 95 % Juliancesar Galeana [facility] 12-03-2020 11:56-0500 Body Temperature 98.8 [degF] [facility] 12-03-2020 11:56-0500 BP Diastolic 73 mm[Hg] [facility] 12-03-2020 11:56-0500 BP Systolic 106 mm[Hg] [facility] 12-03-2020 11:56-0500 Pulse (Heart Rate) 96 /min [facility] 12-03-2020 11:56-0500 Pulse Oximetry 98 % [facility] 12-03-2020 11:56-0500 Respiratory Rate 16 /min [facility] 12-01-2020 18:34-0500 BMI (Body Mass Index) 35.78 kg/m2 [facility] 12-01-2020 18:34-0500 Body weight 75 kg [facility] 12-01-2020 18:34-0500 Height 144.8 cm [facility] 06-18-2020 15:25-0400 BP Diastolic 88 mm[Hg] Urban Purdy IB-Nvmwsrdsu-Bjn ur [facility] [address] [facility] Work Phone: Comment on above: Location: LUE; Position: Standing 06-18-2020 15:25-0400 BP Systolic 117 mm[Hg] Urban DOLAN-Neurology-[facility] Work Phone: Comment on above: Location: LUE; Position: Standing 06-18-2020 15:25-0400 Pulse (Heart Rate) 109 /min Urban DOLAN-Neurology- [facility] Work Phone: 06-18-2020 15:19-0400 Body Temperature 98 [degF] Urban DOLAN-Neurology-[facility] Work Phone: Comment on above: Method: Temporal 06-18-2020 15:19-0400 BP Diastolic 92 mm[Hg] Urban DOLAN-Neurology-Sub ur [facility] Work Phone: Comment on above: Location: LLE; Position: Sitting 06-18-2020 15:19-0400 BP Systolic 125 mm[Hg] Urban DOLAN-Neurology-Sub ur [facility] Work Phone: Comment on above: Location: LLE; Position: Sitting 06-18-2020 15:19-0400 Height 142.24 cm Urban DOLAN-Neurology-Sub ur [facility] Work Phone: 06-18-2020 15:19-0400 Pulse (Heart Rate) 103 /min Urban DOLAN-Neurology- [facility] [address] [facility] Work Phone: 06-18-2020 15:19-0400 Respiratory Rate 18 /min Urban Mcdonaldcamila TF-Bzmiwpmge-Up [facility] [address] [facility] Work Phone: 09-25-2019 12:03-0500 BMI (Body Mass Index) 39.01 kg/m2 [facility] [address] Work Phone: 09-25-2019 12:03-0500 Body weight 78.93 kg Anel [facility] [address] Work Phone: 09-25-2019 12:03-0500 BP Diastolic 72 mm[Hg] Anel Rosales[facility] [address] Work Phone: 09-25-2019 12:03-0500 BP Systolic 110 mm[Hg] Anel [facility] [facility] [address] Work Phone: 09-25-2019 12:03-0500 BSA (Body Surface Area) 1.67 m2 Anel Rosales[place] [address] Work Phone: 09-25-2019 12:03-0500 Height 142.24 cm Anel Rosales-[place] [address] Work Phone: 08-07-2019 13:01-0400 BMI (Body Mass Index) 40.11 kg/m2 Anel Rosales-[place] [address] Work Phone: 08-07-2019 13:01-0400 Body weight 78.61 kg Anel Rosales-[place] [address] Work Phone: 08-07-2019 13:01-0400 BP Diastolic 70 mm[Hg] Anel Rosales-[place] [address] Work Phone: 08-07-2019 13:01-0400 BP Systolic 106 mm[Hg] Anel Rosales-[place] [address] Work Phone: 08-07-2019 13:01-0400 BSA (Body Surface Area) 1.65 m2 Anel [place]ales[place] [address] Work Phone: 08-07-2019 13:01-0400 Height 140 cm Anel [facility]ales[facility] [address] Work Phone: 03-16-2019 12:13-0400 Body Temperature 98.6 [degF] [facility] 03-16-2019 12:13-0400 BP Diastolic 79 mm[Hg] Generic [facility] Phys[facility] 03-16-2019 12:13-0400 BP Systolic 138 mm[Hg] [facility] 03-16-2019 12:13-0400 Pulse (Heart Rate) 73 /min [facility] 03-16-2019 12:13-0400 Pulse Oximetry 97 % [facility] 03-16-2019 12:13-0400 Respiratory Rate 14 /min [facility] 03-16-2019 06:46-0400 BMI (Body Mass Index) 33.85 kg/m2 [facility] 03-16-2019 06:46-0400 Height 142.2 cm [facility] 03-16-2019 06:46-0400 Weight 68.49 kg [facility] 03-08-2019 09:03-0400 BMI (Body Mass Index) 35.1 kg/m2 [facility] 03-08-2019 09:03-0400 Body Temperature 98.1 [degF] [facility] 03-08-2019 09:03-0400 BP Diastolic 77 mm[Hg] [facility] 03-08-2019 09:03-0400 BP Systolic 109 mm[Hg] [facility] 03-08-2019 09:03-0400 Height 139.7 cm [facility] 03-08-2019 09:03-0400 Pulse (Heart Rate) 93 /min [facility] 03-08-2019 09:03-0400 Pulse Oximetry 98 % [facility] 03-08-2019 09:03-0400 Respiratory Rate 18 /min [facility] 03-08-2019 09:03-0400 Weight 68.49 kg [facility] 03-01-2019 08:33-0400 BMI (Body Mass Index) 33.96 kg/m2 [facility] 03-01-2019 08:33-0400 Body Temperature 98.01 [degF] [facility] 03-01-2019 08:33-0400 BP Diastolic 78 mm[Hg] [facility] 03-01-2019 08:33-0400 BP Systolic 112 mm[Hg] [facility] 03-01-2019 08:33-0400 Height 142 cm [facility] 03-01-2019 08:33-0400 Pulse (Heart Rate) 93 /min [facility] 03-01-2019 08:33-0400 Pulse Oximetry 98 % [facility] 03-01-2019 08:33-0400 Respiratory Rate 18 /min [facility] 03-01-2019 08:33-0400 Weight 68.49 kg [facility] 12-26-2018 08:52-0400 BMI (Body Mass Index) 35.11 kg/m2 [facility] 12-26-2018 08:52-0400 Body weight 70.8 kg [facility] 12-26-2018 08:52-0400 BP Diastolic 74 mm[Hg] [facility] 12-26-2018 08:52-0400 BP Systolic 114 mm[Hg] [facility] 12-26-2018 08:52-0400 Height 142 cm [facility] 12-26-2018 08:52-0400 Pulse (Heart Rate) 87 /min [facility] 12-26-2018 08:52-0400 Pulse Oximetry 95 % [facility] 11-22-2018 14:30-0500 BMI (Body Mass Index) 31.51 kg/m2 [facility] 11-22-2018 14:30-0500 Body Temperature 98.1 [degF] [facility] 11-22-2018 14:30-0500 BP Diastolic 88 mm[Hg] [facility] 11-22-2018 14:30-0500 BP Systolic 138 mm[Hg] [facility] 11-22-2018 14:30-0500 Height 149.9 cm [facility] 11-22-2018 14:30-0500 Pulse (Heart Rate) 82 /min [facility] 11-22-2018 14:30-0500 Pulse Oximetry 98 % [facility] 11-22-2018 14:30-0500 Respiratory Rate 16 /min [facility] 11-22-2018 14:30-0500 Weight 70.76 kg [facility] 11-22-2018 10:31-0500 BMI (Body Mass Index) 31.65 kg/m2 [facility] 11-22-2018 10:31-0500 BP Diastolic 105 mm[Hg] [facility] 11-22-2018 10:31-0500 BP Systolic 155 mm[Hg] Zeke Onofre [facility] 11-22-2018 10:31-0500 Height 150 cm Zeke Onofre [facility] 11-22-2018 10:31-0500 Pulse (Heart Rate) 85 /min Zeke Onofre [facility] 11-22-2018 10:31-0500 Pulse Oximetry 96 % eZke Onofre [facility] 11-22-2018 10:31-0500 Weight 71.22 kg [facility] 10-12-2018 15:07-0500 BP Diastolic 86 mm[Hg] [facility] 10-12-2018 15:07-0500 BP Systolic 132 mm[Hg] [facility] 10-12-2018 14:32-0500 BMI (Body Mass Index) 34.97 kg/m2 [facility] 10-12-2018 14:32-0500 Body Temperature 98.29 [degF] [facility] 10-12-2018 14:32-0500 Height 142.2 cm [facility] 10-12-2018 14:32-0500 Pulse (Heart Rate) 89 /min [facility] 10-12-2018 14:32-0500 Pulse Oximetry 97 % [facility] 10-12-2018 14:32-0500 Respiratory Rate 18 /min [facility] 10-12-2018 14:32-0500 Weight 70.76 kg [facility] 06-16-2018 10:16-0400 BMI (Body Mass Index) 34.19 kg/m2 [facility] 06-16-2018 10:16-0400 Body Temperature 97.9 [degF] [facility] 06-16-2018 10:16-0400 BP Diastolic 86 mm[Hg] [facility] 06-16-2018 10:16-0400 BP Systolic 128 mm[Hg] [facility] 06-16-2018 10:16-0400 Height 144.8 cm [facility] 06-16-2018 10:16-0400 Pulse (Heart Rate) 94 /min [facility] 06-16-2018 10:16-0400 Pulse Oximetry 97 % [facility] 06-16-2018 10:16-0400 Respiratory Rate 16 /min [facility] 06-16-2018 10:16-0400 Weight 71.67 kg [facility] 05-19-2018 11:32-0400 BMI (Body Mass Index) 35.2 kg/m2 [facility] 05-19-2018 11:32-0400 Body Temperature 98.6 [degF] [facility] 05-19-2018 11:32-0400 BP Diastolic 84 mm[Hg] [facility] 05-19-2018 11:32-0400 BP Systolic 116 mm[Hg] [facility] 05-19-2018 11:32-0400 Height 142.2 cm [facility] 05-19-2018 11:32-0400 Pulse (Heart Rate) 82 /min [facility] 05-19-2018 11:32-0400 Pulse Oximetry 98 % [facility] 05-19-2018 11:32-0400 Respiratory Rate 16 /min [facility] 05-19-2018 11:32-0400 Weight 71.22 kg [facility] 05-03-2018 14:36-0400 BMI (Body Mass Index) 35.58 kg/m2 [facility] 05-03-2018 14:36-0400 Body Temperature 98.2 [degF] [facility] 05-03-2018 14:36-0400 BP Diastolic 66 mm[Hg] [facility] 05-03-2018 14:36-0400 BP Systolic 98 mm[Hg] [facility] 05-03-2018 14:36-0400 Height 142 cm [facility] 05-03-2018 14:36-0400 Pulse (Heart Rate) 72 /min [facility] 05-03-2018 14:36-0400 Pulse Oximetry 98 % [facility] 05-03-2018 14:36-0400 Respiratory Rate 16 /min [facility] 05-03-2018 14:36-0400 Weight 71.76 kg [facility] 01-04-2018 14:04-0400 BMI (Body Mass Index) 34.62 kg/m2 [facility] 01-04-2018 14:04-0400 Body Temperature 98.01 [degF] [facility] 01-04-2018 14:04-0400 BP Diastolic 82 mm[Hg] Dimas Mendy [facility] 01-04-2018 14:04-0400 BP Systolic 115 mm[Hg] Dimas Brooke [facility] 01-04-2018 14:04-0400 Height 142.2 cm Dimas Mendy [facility] 01-04-2018 14:04-0400 Pulse (Heart Rate) 82 /min Dimas Mendy [facility] 01-04-2018 14:04-0400 Pulse Oximetry 97 % Dimas Mendy [facility] 01-04-2018 14:04-0400 Respiratory Rate 18 /min Dimas Mendy [facility] 01-04-2018 14:04-0400 Weight 70.03 kg Dimas Mendy [facility] 07-15-2017 10:45-0400 BMI (Body Mass Index) 32.91 kg/m2 [facility] Work Phone: 07-15-2017 10:45-0400 Body Temperature 98.01 [degF] [facility] Work Phone: 07-15-2017 10:45-0400 BP Diastolic 68 mm[Hg] [facility] Work Phone: 07-15-2017 10:45-0400 BP Systolic 87 mm[Hg] [facility] Work Phone: 07-15-2017 10:45-0400 Height 142.2 cm [facility] Work Phone: 07-15-2017 10:45-0400 Pulse (Heart Rate) 92 /min [facility] Work Phone: 07-15-2017 10:45-0400 Pulse Oximetry 94 % [facility] Work Phone: 07-15-2017 10:45-0400 Respiratory Rate 16 /min [facility] Work Phone: 07-15-2017 10:45-0400 Weight 66.59 kg [facility] Work Phone: 06-28-2017 15:03-0400 BMI (Body Mass Index) 33.23 kg/m2 [facility] Work Phone: 06-28-2017 15:03-0400 Body Temperature 98.1 [degF] [place] Yamil [facility] Work Phone: 06-28-2017 15:03-0400 BP Diastolic 72 mm[Hg] [place] Yamil [facility] Work Phone: 06-28-2017 15:03-0400 BP Systolic 102 mm[Hg] [facility] Work Phone: 06-28-2017 15:03-0400 Height 142.2 cm [facility] Work Phone: 06-28-2017 15:03-0400 Pulse (Heart Rate) 98 /min [facility] Work Phone: 06-28-2017 15:03-0400 Pulse Oximetry 98 % [facility] Work Phone: 06-28-2017 15:03-0400 Respiratory Rate 16 /min [facility] Work Phone: 06-28-2017 15:03-0400 Weight 67.22 kg [facility] Work Phone: Encounters Encounter Date Encounter Type Care Provider Facility Start: 04-04-2025 End: 04-05-2025 Emergency department patient visit Dr. Sree Jamison MD Work Phone: -Emergency Department Work Phone: Start: 03-21-2025 End: 03-21-2025 Emergency department patient visit Dr. Sree Jamison MD Work Phone: -Emergency Department Work Phone: Start: 03-13-2025 End: 03-15-2025 Evaluation and management of inpatient Sohail Hernandez MD PhD Work Phone: [facility] Epilepsy Monitoring [facility] Comment on above: Seizure disorder (CM S/HCC) (HCC) (Primary Dx) Start: 02-19-2025 End: 02-19-2025 ambulatory SOHAIL HERNANDEZ [facility] Start: 02-19-2025 End: 02-19-2025 Office outpatient visit 40 minutes Mee Perez [employer]IST Work Phone: [facility] Comment on above: Focal epilepsy with impairment of consciousness, intractable (HCC) (Primary Dx); 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) Start: 01-26-2025 End: 01-26-2025 Telephone encounter Valentina Chopra MD Work Phone: [facility] Comment on above: Med Management Start: 01-25-2025 End: 01-25-2025 Office outpatient visit 15 minutes Valentina Chopra MD Work Phone: [facility] Comment on above: 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 Sree Jamison MD -Laboratory Specimen Work Phone: Start: 01-01-2025 ambulatory Sree Jamison Facility:[facility] Start: 12-08-2024 End: 12-08-2024 Office outpatient visit 25 minutes Sohail Hernandez MD PhD Work Phone: [facility] Comment on above: Focal epilepsy with impairment of consciousness, intractable (HCC) (Primary Dx) Start: 12-08-2024 End: 12-08-2024 ambulatory SOHAIL HERNANDEZ [facility] Start: 11-07-2024 End: 11-07-2024 Emergency department patient visit Sree Jamison Facility:[facility] Start: 11-06-2024 End: 11-06-2024 Emergency department patient visit Tim Newby Facility:[facility] Start: 11-04-2024 End: 11-04-2024 Emergency department patient visit Mathew Perez Facility:[facility] Start: 10-30-2024 End: 03-16-2025 Telephone encounter Sohail Hernandez MD PhD Work Phone: [facility] Central Scheduling Comment on above: Other ([facility]) Start: 10-26-2024 End: 10-26-2024 Office outpatient visit 40 minutes Sohail Hernandez MD PhD Work Phone: [facility] Neurology [facility] Comment on above: Focal epilepsy with impairment of consciousness, intractable (HCC) (Primary Dx) Start: 10-26-2024 End: 10-26-2024 ambulatory JEANIE TAVALLAEE [facility] Start: 10-14-2024 End: 10-14-2024 Emergency department patient visit Fran Naylor Facility:[facility] Start: 10-02-2024 End: 10-03-2024 Emergency department patient visit Geovanny Arndt Facility:[facility] Start: 09-26-2024 End: 09-26-2024 Emergency department patient visit Georges Kelley Facility:[facility] Start: 08-30-2024 End: 08-30-2024 [facility] Start: 08-30-2024 End: 08-30-2024 Office outpatient visit 25 minutes Gayatri Bobby PA-C Work Phone: [facility] Dermatology - Jerri Denis Comment on above: Seborrheic dermatiti s Start: 07-25-2024 End: 07-26-2024 Emergency department patient visit Archie Sanches Facility:[facility] Start: 07-18-2024 End: 07-18-2024 Office outpatient visit 40 minutes Valentina Chopra MD Work Phone: [facility] Comment on above: 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) (Primary Dx); Tremor; Frequent falls Start: 07-18-2024 End: 07-18-2024 ambulatory JEANIE TAVALLAEE [facility] Start: 07-11-2024 End: 07-14-2024 Telephone encounter Sohail Hernandez MD PhD Work Phone: [facility] Central Scheduling Comment on above: Other (Scheduling) Start: 07-07-2024 End: 07-07-2024 Office outpatient visit 40 minutes Sohail Hernandez MD PhD Work Phone: [facility] Neurology [facility] Comment on above: 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) Start: 07-07-2024 End: 07-07-2024 ambulatory JEANIE AYALA [facility] Start: 06-16-2024 End: 06-16-2024 Postop follow up visit related to original px Raúl Hudson MD Work Phone: [facility] Comment on above: S/P laparoscopic diomedes endectomy (Primary Dx) Start: 06-16-2024 End: 06-16-2024 ambulatory RAÚL HUDSON [facility] Start: 06-08-2024 Evaluation and manag ement of inpatient [facility] Start: 06-04-2024 End: 06-06-2024 Evaluation and management of inpatient Bang Tovar Work Phone: [facility] Med Surg Oncology Start: 05-31-2024 End: 05-31-2024 Office outpatient new 45 minutes Gayatri Bobby PA-C Work Phone: [facility] Dermatology Comment on above: Seborrheic dermatiti s Start: 05-31-2024 End: 05-31-2024 [facility] Start: 05-04-2024 Evaluation and manag ement of inpatient [facility] Start: 04-27-2024 End: 04-27-2024 Subsequent hospital visit by physician Krishna Parada [facility] Comment on above: Encounter for screen ing mammogram for breast cancer Start: 04-27-2024 End: 04-27-2024 ambulatory JEANIE Rubio [facility] Start: 04-19-2024 End: 04-19-2024 Patient encounter procedure Shayy Mcginnis MD Work Phone: [facility] [place] Work Phone: Start: 04-19-2024 End: 04-19-2024 Periodic preventive med est patient 40-64yrs Shayy Mcginnis MD Work Phone: [facility] Comment on above: Well woman exam (no gynecological exam) (Primary Dx); Screening mammogram for breast cancer Start: 04-19-2024 End: 04-19-2024 ambulatory [facility] Start: 04-19-2024 End: 04-19-2024 Encounter for general adult medical examination without abnormal findings [facility] Start: 04-17-2024 End: 04-17-2024 ambulatory [facility] Start: 04-10-2024 Evaluation and manag ement of inpatient JYOTI [facility] Start: 04-07-2024 End: 04-07-2024 Emergency department patient visit [facility] Start: 04-05-2024 End: 04-05-2024 Office outpatient new 45 minutes Khalida Mtz MD Work Phone: [facility] Comment on above: Morbid obesity with BMI of 40.0-44.9, adult (Multi) (Primary Dx); Endometriosis; Thrombocytopenia (CMS-HCC); Chronic systolic (congestive) heart failure (Multi) Start: 04-05-2024 End: 04-05-2024 ambulatory [facility] Start: 04-04-2024 End: 04-04-2024 Office outpatient visit 15 minutes Mejia Cullen MD Work Phone: [facility] Comment on above: Psoriasis (Primary D x); Frequent falls; Tremor; Impaired mobility Start: 04-04-2024 End: 04-04-2024 ambulatory MEJIA CULLEN [facility] Start: 03-04-2024 End: 03-07-2024 Evaluation and management of inpatient [facility] Start: 03-03-2024 End: 03-03-2024 Emergency department patient visit [facility] Start: 02-07-2024 End: 02-07-2024 ambulatory [facility] Start: 02-04-2024 ambulatory [facility] Start: 02-04-2024 End: 02-04-2024 Office outpatient new 30 minutes Olinda Luna MD Work Phone: [facility] PROJECTS MANAGER Comment on above: Encounter to [facility] (Primary Dx) Start: 01-03-2024 Telephone encounter Mejia alicia MD Work Phone: [facility] Comment on above: question Start: 01-03-2024 End: 01-03-2024 Office outpatient visit 15 minutes Mejia Cullen MD Work Phone: [facility] Comment on above: Chronic right should er pain (Primary Dx) Start: 12-31-2023 End: 01-01-2024 ambulatory [facility] Start: 12-31-2023 End: 01-01-2024 Emergency department patient visit Moe Tarango MD Work Phone: [facility] Emergency Department Start: 12-28-2023 Telephone encounter Mejia alicia MD Work Phone: [facility] Comment on above: Orders Start: 12-22-2023 Telephone encounter Mejia alicia MD Work Phone: [facility] Comment on above: Records Request/[facility] Start: 11-17-2023 End: 11-17-2023 Emergency department patient visit Larry Eugene DO Work Phone: [facility] Emergency Medicine Comment on above: Contusion of back, u nspecified laterality, initial encounter (Primary Dx); Fall, initial encounter Start: 11-10-2023 End: 11-10-2023 Office outpatient visit 15 minutes Valentina Munoz MD Work Phone: [facility] Comment on above: Endometriosis (Prima ry Dx) Start: 11-08-2023 End: 11-08-2023 Office outpatient visit 15 minutes Jeanie Ayala MD Work Phone: [facility] Internal Medicine Comment on above: Anxiety; Chronic systolic (congestive) heart failure (CMS/HCC); Depression, major, single episode, severe (CMS/HCC); Seizure-like activity (CMS/HCC); Sedative, hypnotic or anxiolytic dependence with withdrawal, unspecified (CMS/HCC) Start: 10-29-2023 End: 10-29-2023 Patient encounter procedure Matthew Pérez MD [facility] Comment on above: Postop check (Primar y Dx) Start: 10-25-2023 End: 10-25-2023 Office outpatient visit 15 minutes Mejia Cullen MD Work Phone: [facility] Comment on above: Chronic midline low back pain without sciatica (Primary Dx); Frequent falls; Tremor Start: 10-14-2023 End: 10-14-2023 ambulatory MATTHEW PÉREZ [facility] Start: 10-05-2023 End: 10-05-2023 ambulatory EVERETTLAVINIA LAGOS [facility] Start: 10-05-2023 End: 10-05-2023 Patient encounter status [facility] Work Phone: Start: 10-05-2023 End: 10-05-2023 Subsequent hospital visit by physician [facility] Cardiac Room [facility] Comment on above: Preop testing; Tachycardia Arrived Start: 10-05-2023 End: 10-05-2023 ambulatory [facility] Start: 10-05-2023 End: 10-05-2023 Encounter for other preprocedural examination [facility] Start: 10-02-2023 End: 10-02-2023 Emergency department patient visit Lit Ledezma MD Work Phone: [facility] Comment on above: Fall, initial encoun ter (Primary Dx) Start: 09-21-2023 End: 09-21-2023 Office consultation new/estab patient 60 min Everett Haywood MD Work Phone: [facility] Building Comment on above: Tachycardia (Primary Dx); Preop testing Start: 09-21-2023 End: 09-21-2023 Patient encounter status Everett Haywood MD Work Phone: [facility] Work Phone: Start: 09-16-2023 End: 09-16-2023 Emergency department patient visit Dimas Lin MD Work Phone: [facility] Comment on above: Contusion of head, u nspecified part of head, initial encounter (Primary Dx); Fall, initial encounter; Contusion of right elbow, initial encounter; Abrasion of right elbow, initial encounter Start: 09-13-2023 End: 09-17-2023 ambulatory [facility] Start: 09-08-2023 End: 09-08-2023 Office outpatient visit 25 minutes Jeanie Ayala MD Work Phone: [facility] Internal Medicine Comment on above: Fatty liver (Primary Dx); Anxiety; Stage 3a chronic kidney disease (CMS/HCC); Hyperglycemia; Abnormal EKG; Chest pain, unspecified type Start: 09-01-2023 End: 09-02-2023 ambulatory JEANIE Rubio [facility] Start: 09-01-2023 End: 09-02-2023 Encounter for other preprocedural examination [facility] Start: 09-01-2023 End: 09-01-2023 Patient encounter status [address] Work Phone: Start: 09-01-2023 End: 09-01-2023 Subsequent hospital visit by physician Krishna X-Ray 1 [facility] Comment on above: Preop testing Start: 09-01-2023 End: 09-01-2023 ambulatory MATTHEW PÉREZ [facility] Start: 08-25-2023 End: 08-25-2023 Emergency department patient visit Abhi Richards DO Work Phone: [facility] Medicine Comment on above: Fall, initial encoun ter (Primary Dx) Start: 08-23-2023 Telephone encounter Valentina rhodes MD Work Phone: [facility] Comment on above: Referral Start: 08-19-2023 Telephone encounter Valentina rhodes MD Work Phone: [facility] Comment on above: Advice Only (Clarifi cation on Order) Start: 08-19-2023 End: 08-19-2023 Office outpatient new 45 minutes Valentina Chopra MD Work Phone: [facility] Comment on above: 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) (Primary Dx); Tremor; Frequent falls Start: 08-17-2023 Patient encounter status Savi Richards DO Work Phone: [facility] Work Phone: Start: 08-17-2023 Encounter for other preprocedural examination [facility] Start: 08-17-2023 Encounter for other preprocedural examination [facility] Start: 08-16-2023 End: 08-16-2023 Office outpatient visit 25 minutes Matthew Pérez MD Work Phone: [facility] Comment on above: Pre-op exam (Primary Dx); Menorrhagia with irregular cycle; Screen for STD (sexually transmitted disease); Pelvic pain Start: 08-16-2023 End: 08-16-2023 Preprocedural examination done Matthew Pérez MD Work Phone: [facility] Work Phone: Start: 08-13-2023 End: 08-13-2023 Emergency department patient visit Lopez Milagro Gutierrez DO Work Phone: [facility] Comment on above: Primary hypertension (Primary Dx); Renal insufficiency Start: 08-11-2023 End: 08-11-2023 Office outpatient visit 25 minutes Jeanie Ayala MD Work Phone: [facility] Medicine Comment on above: Chronic systolic (co ngestive) heart failure (CMS/HCC) (Primary Dx); Anxiety; Depression, major, single episode, severe (CMS/HCC); Generalized epilepsy (CMS/HCC); Sedative, hypnotic or anxiolytic dependence with withdrawal, unspecified (CMS/HCC); Stage 3a chronic kidney disease (CMS/HCC); Fatty liver; Thrombocytopenia ([facility]/HCC) Start: 08-06-2023 End: 08-06-2023 ambulatory KINDRA Frausto [facility] Start: 08-01-2023 End: 08-02-2023 Emergency department patient visit JEANIE Rubio [facility] Start: 07-29-2023 End: 07-30-2023 ambulatory JEANIE Rubio [facility] Start: 07-24-2023 End: 07-25-2023 Emergency department patient visit Caren Gilman Work Phone: [facility] Comment on above: Anxiety (Primary Dx) ; Fall, initial encounter Start: 07-16-2023 End: 07-16-2023 Emergency department patient visit Caren Gilman [facility] Emergency 12 Start: 07-13-2023 End: 07-13-2023 Office outpatient visit 25 minutes Jeanie Ayala MD Work Phone: [facility] Internal Medicine Comment on above: Vagina bleeding (Pau zeke Dx); Dysuria; Anxiety; Primary hypertension Start: 06-15-2023 Patient encounter procedure Reanna Kemp [facility] Rehab Start: 06-14-2023 End: 06-14-2023 Emergency department patient visit Larry Eugene [facility] Emergency 12 Start: 06-08-2023 ambulatory Jeanie Ayala Facil ity:[id number] Start: 06-08-2023 Patient encounter procedure Jeanie Ayala Work Phone: [facility] Work Phone: Start: 06-04-2023 Patient encounter procedure Jeanie Ayala Work Phone: [facility] Work Phone: Start: 06-02-2023 End: 06-03-2023 ambulatory [facility] Start: 06-01-2023 Chart Update Jeanie hernandezaee Work Phone: [facility] Work Phone: Start: 05-28-2023 Patient encounter procedure Jeanie Puma Tavallaee Work Phone: [facility] Work Phone: Start: 05-28-2023 ambulatory Jeanie Tavallaee Facil ity:[id number] Start: 05-21-2023 Patient encounter procedure Jeanie Puma Pimentelallaee Work Phone: [facility] Work Phone: Start: 05-21-2023 ambulatory Jeanie Tavallaee Facil ity:[id number] Start: 05-19-2023 ambulatory Jeanie Tavallaee Facil ity:[id number] Start: 05-19-2023 AQUATICFU4, Provider : Pippa Freeman, Status: Pen, Time: 11:30 AM Jeanie Puma Tavallaee Work Phone: [facility] Work Phone: Start: 05-14-2023 Patient encounter procedure Jeanie Puma Tavallaee Work Phone: [facility] Work Phone: Start: 05-14-2023 ambulatory Jeanie Tavallaee Facil [id number] Start: 05-07-2023 ambulatory Jeanie Tavallaee Facil ity:[id number] Start: 05-07-2023 AQUATICFU4, Provider : Pippa Freeman, Status: Pen, Time: 10:00 AM Jeanie Puma Tavallaee [facility]: [facility] Work [facility]: Start: 05-05-2023 Patient encounter procedure Jeanie Puma Tavallaee Work Phone: [facility] Work Phone: Start: 05-04-2023 End: 05-04-2023 Office outpatient visit 15 minutes Jeanie Ayala MD Work Phone: [facility] Comment on above: Anxiety Start: 04-30-2023 FUV, Provider: Matthew Pérez, Status: Pen, Time: 10:45 AM Jeanie Ayala Work Phone: [facility] Work Phone: Start: 04-30-2023 Office outpatient vi sit 15 minutes Jeanie Ayala Work Phone: [address] Work Phone: Start: 04-30-[address] Jeanie Ayala Facility:[id number] Start: 04-28-2023 ambulatory Jeanie Aylaa Facil ity:[id number] Start: 04-28-2023 PTRECHADUL, Provider : Trice Tejada, Status: Pen, Time: 11:45 AM Jeanie Ayala Work Phone: [facility] Work Phone: Start: 04-28-2023 AQUATICFU4, Provider : Pippa Freeman, Status: Pen, Time: 10:45 AM Jeanie Ayala Work Phone: [facility] Work Phone: Start: 04-28-2023 Patient encounter procedure Jeanie Ayala Work Phone: [facility] Work Phone: Start: 04-27-2023 OTEVALADUL, Provider : Naya Giles, Status: Pen, Time: 10:45 AM Jeanie Ayala Work Phone: [facility] Work Phone: Start: 04-27-2023 Patient encounter procedure Jeanie Puma Tavallaee [facility] Work Phone: Start: 04-27-2023 ambulatory Jeanie Tavallaee Facil ity:[id number] Start: 04-26-2023 Patient encounter procedure Jeanie Puma Tavallaee Work Phone: [facility] Work Phone: Start: 04-26-2023 ambulatory Jeanie Tavallaee Facil ity:[id number] Start: 04-23-2023 Patient encounter procedure Jeanie Puma Tavallaee Work [facility]: [facility] Work Phone: Start: 04-23-2023 ambulatory Jeanie Tavallaee Facil ity:[id number] Start: 04-15-2023 ambulatory Jeanie Tavallaee Facil ity:[id number] Start: 04-14-2023 Patient encounter procedure Jeanie Puma Tavallaee Work Phone: [facility] Work Phone: Start: 04-09-2023 [place] [id number], Provider : Pippa Freeman, Status: Pen, Time: 10:00 AM Jeanie Puma Tavallaee Work Phone: [address] Work Phone: Start: 04-09-2023 Patient encounter procedure Jeanie Puma Tavallaee Work Phone: [facility] Work Phone: Start: 04-09-2023 ambulatory Jeanie Tavallaee Facil ity:[id number] Start: 04-08-2023 Chart Update Jeanie Puma Tava llaee Work Phone: [facility] Work Phone: Start: 04-07-2023 ambulatory Jeanie Tavallaee Facil ity:[id number] Start: 04-07-2023 AQUATICFU4, Provider : Pippa Freeman, Status: Pen, Time: 10:00 AM Jeanie Rubio Tavallaee Work Phone: [facility] Work Phone: Start: 04-07-2023 Chart Update Jeanie Rubio Tava llaee Work Phone: [place] [address] [employer] Work Phone: Start: 04-05-2023 Office outpatient vi sit 25 minutes Jeanie Rubio Tavallaee Work Phone: [facility] Work Phone: Start: 04-05-[address] Jeanie cabrera Tavallaedarrell Facility:[id number] Start: 04-02-2023 Patient encounter procedure Reanna Kemp [facility] Rehab Start: 04-02-2023 ambulatory Jeanie Tavallaee Facil ity:[id number] Start: 04-01-2023 End: 04-01-2023 Emergency department patient visit Caren Gilman [facility] Emergency 02 Start: 03-19-2023 ambulatory Jeanie Tavallaee Facil ity:[id number] Start: 03-19-2023 Patient encounter procedure Jeanie Pimentelallaee Work Phone: [facility] Work Phone: Start: 03-10-2023 ambulatory Jeanie Tavallaee Facil ity:[id number] Start: 03-08-2023 ambulatory Jeanie Tavallaee Facil ity:[id number] Start: 03-03-2023 AQUATICFU4, Provider : Pippa Freeman, Status: Pen, Time: 10:00 AM Jeanie Rubio Tavallaee Work Phone: [facility] Work Phone: Start: 03-03-2023 Patient encounter procedure Jeanie Ayala Work Phone: [facility] Work Phone: Start: 03-03-2023 ambulatory Jeanie Tavallaee Facil ity:[id number] Start: 03-01-2023 Patient encounter procedure Jeanie Ayala Work Phone: [facility] Work Phone: Start: 03-01-2023 ambulatory Jeanie Tavallaee Facil ity:[id number] Start: 02-26-2023 ambulatory Jeanie Tavallaee Facil ity:[id number] Start: 02-26-2023 AQUATICFU4, Provider : Pippa Freeman, Status: Pen, Time: 10:45 AM Jeanie Ayala Work Phone: [facility] 3 DO Work Phone: Start: 02-26-2023 Patient encounter procedure Jeanie Ayala Work Phone: [facility] Work Phone: Start: 02-25-2023 End: 02-25-2023 Office outpatient visit 25 minutes Jeanie Ayala MD Work Phone: [facility] Medicine Comment on above: Primary hypertension (Primary Dx); Sedative, hypnotic or anxiolytic dependence with withdrawal, unspecified (CMS/HCC); Depression, major, single episode, severe (CMS/HCC); Impacted cerumen of right ear Start: 02-24-2023 Office outpatient vi sit 10 minutes Jeanie Ayala Work Phone: [facility] 3 DO Work Phone: Start: 02-24-[address] Jeanie Ayala Facility:[id number] Start: 02-20-2023 End: 02-20-2023 Emergency department patient visit Jeanie Goaee Facility:[id number] Start: 02-19-2023 Patient encounter procedure Jeanie Goaee Work Phone: [facility] Work Phone: Start: 02-19-2023 ambulatory Jeanie Tavallaee Facil ity:[id number] Start: 02-16-2023 Chart Update Jeanie Pimentela llaee Work Phone: ZX[facility]audnvzmqd[facility] Mohinder 3 DO Work Phone: Start: 02-15-2023 ambulatory Jeanie Pimentelallaee Facil ity:[id number] Start: 02-15-2023 Patient encounter procedure Jeanie Goaee Work Phone: [facility] Work Phone: Start: 02-12-2023 Patient encounter procedure Jeanie Goaee Work Phone: [facility] Work Phone: Start: 02-12-2023 ambulatory Jeanie Tavallaee Facil ity:[id number] Start: 02-04-2023 ambulatory Jeanie Tavallaee Facil ity:[id number] Start: 02-01-2023 Patient encounter procedure Jeanie Goaee Work Phone: CP-Crmsudsfid[facility]PATQu[facility] Mohinder 3 DO Work Phone: Start: 01-29-2023 Patient encounter procedure Jeanie Goaee Work Phone: [facility] Work Phone: Start: 01-29-2023 ambulatory Jeanie Tavallaee Facil ity:[id number] Start: 01-27-[address] Jeanie Ayala Facility:[facility] Start: 01-26-2023 Office outpatient ne w 45 minutes Jeanie Ayala Work Phone: NT[facility]iohhhmdsy[facility]JMM[facility] Mohinder 3 DO Work Phone: Start: 01-26-[address] Jeanie Ayala Facility:[id number] Start: 01-21-2023 End: 01-21-2023 Emergency department patient visit Larry Eugene [facility] Emergency 03 Start: 01-20-2023 Chart Update Jeanie armenta Work Phone: [facility] 300 Work Phone: Start: 01-19-2023 ambulatory Jeanie Ayala Facil ity:[id number] Start: 01-19-2023 Office outpatient vi sit 25 minutes Jeanie Ayala Work Phone: [facility] 300 Work Phone: Start: 01-19-[address] Jeanie Ayala Facility:[id number] Start: 01-15-2023 ambulatory Jeanie Ayala Facil ity:[id number] Start: 01-15-2023 Patient encounter procedure Jeanie Ayala Work Phone: [facility] Work Phone: Start: 01-12-2023 End: 01-12-2023 Office outpatient visit 25 minutes Sammie Iglesias MD Work Phone: [facility] Comment on above: COVID-19 (Primary Dx ); Cough in adult; Chest congestion; Otalgia of both ears; Acute cystitis with hematuria Start: 01-08-2023 End: 01-08-2023 Emergency department patient visit JEANIE AYALA [facility] Start: 01-08-2023 Patient encounter procedure Reanna Kemp [facility] Rehab Start: 01-07-2023 End: 01-08-2023 Emergency department patient visit Shilpa Douglas [facility] Emergency 03 Start: 01-07-2023 End: 01-07-2023 Emergency department patient visit Abhi Richards [facility] Emergency 11 Start: 01-04-2023 ambulatory Jeanie Tavallaee Facil ity:[id number] Start: 01-04-2023 Patient encounter procedure Jeanie M Tavallaee Work Phone: [facility] Work Phone: Start: 01-01-2023 End: 01-01-2023 Emergency department patient visit Lit Ledezma [facility] Emergency 01 Start: 12-30-2022 ambulatory Jeanie Tavallaee Facil ity:[id number] Start: 12-30-2022 AQUATICFU4, Provider : Pippa Freeman, Status: Pen, Time: 9:15 AM Jeanie M Tavallaee Work Phone: [facility] Work Phone: Start: 12-30-2022 Patient encounter procedure Jeanie M Tavallaee Work Phone: [facility] Work Phone: Start: 12-28-2022 ambulatory Jeanie Tavallaee Facil ity:[id number] Start: 12-28-2022 Patient encounter procedure Jeanie M Tavallaee Work Phone: [facility] Work [facility]: Start: 12-25-2022 ambulatory Jeanie Tavallaee Facil ity:[id number] Start: 12-25-2022 AQUATICFU4, Provider : Pippa Freeman, Status: Pen, Time: 9:15 AM Jeanie M Tavallaee Work Phone: [facility] 300 Work Phone: Start: 12-25-2022 Patient encounter procedure Jeanie M Tavallaee Work Phone: [facility] Work Phone: Start: 12-24-2022 NEWPROB, Provider: Kellie Avery, Status: Pen, Time: 10:15 AM Jeanie Puma Tavallaee Work Phone: [facility] 300 Work Phone: Start: 12-24-2022 NPV, Provider: Jeison Clancy, Status: Pen, Time: 9:30 AM Jeanie M Tavallaee Work Phone: [facility] 300 Work Phone: Start: 12-23-2022 Office outpatient vi sit 15 minutes Jeanie Puma Pimentelallaee Work Phone: [facility] 300 Work Phone: Start: 12-23-2022 ambulatory Jeanie Lorenallaee Facil ity:[id number] Start: 12-17-2022 Patient encounter procedure Jeanie Puma Pimentelallaee Work Phone: [facility] Work Phone: Start: 12-17-2022 ambulatory Jeanie Lorenallaee Facil ity:[id number] Start: 12-15-[address] Jeanie Ayala Facility:[id number] Start: 12-07-2022 End: 12-07-2022 Emergency department patient visit Andres Hussein [facility] Emergency 10 Start: 12-02-[address] Jeanie Ayala Facility:[id number] Start: 12-02-2022 Patient encounter procedure Jeanie M Tavallaee Work Phone: [facility] Work Phone: Start: 11-26-2022 End: 11-26-2022 Emergency department patient visit Caren Gilman [facility] Emergency 02 Start: 11-25-2022 FUV, Provider: Rayne Lin, Status: Pen, Time: 11:15 AM Jeanie Pimentelallaee Work Phone: [facility] Internal Medicine Work Phone: Start: 11-25-2022 Office outpatient vi sit 40 minutes Jeanie Pimentelallaee Work Phone: [address] Work Phone: Start: 11-25-[address] Jeanie Ayala Facility:[id number] Start: 11-25-2022 ambulatory Jeanie Tavallaee Facil ity:[id number] Start: 11-23-2022 Office outpatient vi sit 15 minutes Jeanie Pimentelallaee Work Phone: [facility] Internal Medicine Work Phone: Start: 11-23-[address] Jeanie Ayala Facility:[id number] Start: 11-20-2022 ambulatory Jeanie Tavallaee Facil ity:[id number] Start: 11-12-2022 HOLTER 48, Provider: CONFUCIANIST DIAGNOSTIC THERAPIST,[facility], Status: Pen, Time: 2:00 PM Jeanie Pimentelallaee Work Phone: [facility] Work Phone: Start: 11-12-2022 ECHO, Provider: MARCUS NEWMAN ECHO 1,[facility], Status: Pen, Time: 1:00 PM Jeanie Pimentelallaee Work Phone: [facility] Work Phone: Start: 11-12-2022 ambulatory Jeanie Tavallaee Facil ity:[id number] Start: 11-10-[address] Jeanie Ayala Facility:[id number] Start: 11-10-2022 Office outpatient vi sit 15 minutes Jeanie Pimentelallaee Work Phone: [facility] 300 Work Phone: Start: 11-06-2022 AUDIT Jeanie Pimentela llaee Work Phone: [address] Work Phone: Start: 11-05-2022 Office outpatient ne w 45 minutes Jeanie Pimentelallaee Work Phone: [address] Work Phone: Start: 11-05-[address] Jeanie Ayala Facility:[id number] Start: 10-31-2022 End: 11-01-2022 Emergency department patient visit Jeanie Ayala Facility:[id number] Start: 10-29-2022 AUDIT Jeanie armenta Work Phone: [facility] Medicine Work Phone: Start: 10-28-2022 Transcribe Orders Jeanie Ayala MD Work Phone: [facility] Neuro[facility] Comment on above: Migraine without sta tus migrainosus, not intractable, unspecified migraine type (Primary Dx) Start: 10-28-2022 AUDIT Jeanie hernandezaee Work Phone: [facility] Medicine Work Phone: Start: 09-16-2022 FUV, Provider: Reanna Kemp, Status: Pen, Time: 10:30 AM Jeanie Ayala Work Phone: [facility] Internal Medicine Work Phone: Start: 09-16-2022 Office outpatient vi sit 15 minutes Jeanie Pimentelallaee Work Phone: [facility] 300 Work Phone: Start: 09-16-2022 Patient encounter procedure [facility]ieizaiah Go[facility] 300 Work Phone: Start: 09-16-[address] Jeanie Goaee Facility:[id number] Start: 09-15-2022 Office outpatient vi sit 25 minutes Jeanie Puma Tavallaee Work Phone: [facility] Internal Medicine Work Phone: Start: 09-15-[address] Jeanie Ayala Facility:[id number] Start: 08-29-2022 Chart Update Jeanie Pimentela llaee Work Phone: [facility] Internal Medicine Work Phone: Start: 08-24-2022 Chart Update Jeanie Rubio Tava llaee Work Phone: [facility] Medicine Work Phone: Start: 08-24-2022 End: 08-24-2022 [facility] Start: 08-19-2022 FUV, Provider: Reanna Kemp, Status: Pen, Time: 10:30 AM Jeanie M Tavallaee Work Phone: [facility] Work Phone: Start: 08-19-2022 Office outpatient vi sit 15 minutes Jeanie M Tavallaee Work Phone: [facility] 300 Work Phone: Start: 08-18-2022 Office outpatient vi sit 25 minutes Jeanie M Tavallaee Work Phone: [facility] Internal Medicine Work Phone: Start: 08-06-2022 ambulatory Jeanie Tavallaee Facil ity:[id number] Start: 07-21-2022 Office outpatient vi sit 25 minutes Jeanie M Tavallaee Work Phone: [facility] Medicine Work Phone: Start: 07-15-2022 NPV, Provider: Reanna Kemp, Status: Pen, Time: 1:00 PM Jeanie M Tavallaee Work Phone: [facility] Internal Medicine Work Phone: Start: 07-15-2022 Office outpatient ne w 45 minutes Jeanie Puma Tavallaee Work Phone: [facility] 300 Work Phone: Start: 07-15-2022 Patient encounter procedure Jeanie Puma Tavallaee Work Phone: [facility] 300 Work Phone: Start: 07-13-2022 Chart Update Jeanie M Tava llaee Work Phone: [facility] Work Phone: Start: 07-02-2022 NPV, Provider: Ivelisse Lange, Status: Pen, Time: 1:45 PM Jeanie Puma Tavallaee Work Phone: [facility] Medicine Work Phone: Start: 06-30-2022 Office outpatient vi sit 25 minutes Jeanie Puma Tavallaee Work Phone: [facility] Work Phone: Start: 05-09-2022 End: 05-10-2022 Emergency department patient visit Dinesh Chun [facility] Emergency 01 Start: 05-06-2022 End: 05-06-2022 Emergency department patient visit CAREN AL [facility] Start: 05-05-2022 Office outpatient vi sit 15 minutes Jeanie Puma Tavallaee Work Phone: [facility] Internal Medicine Work Phone: Start: 03-06-2022 Chart Update Jeanie Rubio Tava llaee Work Phone: [address] Work Phone: Start: 03-04-2022 Office outpatient vi sit 25 minutes Jeanie Puma Tavallaee Work Phone: [facility] Internal Medicine Work Phone: Start: 01-30-2022 Patient encounter procedure Jeanie Puma Tavallaee Work Phone: [facility] Internal Medicine Work Phone: Start: 01-29-2022 Chart Update Jeanie M Tava llaee Work Phone: [facility] Internal Medicine Work Phone: Start: 01-22-2022 Chart Update Jeanie M Tava llaee Work Phone: [facility] Internal Medicine Work Phone: Start: 01-07-2022 Office outpatient vi sit 25 minutes Jeanie M Tavallaee Work Phone: [facility] Internal Medicine Work Phone: Start: 12-30-2021 Chart Update Jeanie M Tava llaee Work Phone: [facility] Medicine Work Phone: Start: 12-29-2021 Chart Update Jeanie Puma Tava llaee Work Phone: [facility] Medicine Work Phone: Start: 12-17-2021 Office outpatient vi sit 25 minutes Jeanie M Tavallaee Work Phone: [facility] Medicine Work Phone: Start: 12-17-2021 Chart Update Jeanie M Tava llaee Work Phone: [facility] Medicine Work Phone: Start: 12-15-2021 Patient encounter procedure Jeanieizaiah Pimentelallaee [facility] Diagnostic Start: 12-13-2021 End: 12-13-2021 Emergency department patient visit Tenisha Lane [facility] Emergency 02 Start: 12-08-2021 Office outpatient vi sit 25 minutes Jeanie Puma Tavallaee Work Phone: [facility] Internal Medicine Work Phone: Start: 12-05-2021 End: 12-05-2021 Emergency department patient visit Lopez Gutierrez [facility] Emergency 09 Start: 12-03-2021 Office outpatient vi sit 25 minutes Jeanie M Tavallaee Work Phone: [facility] Internal Medicine Work Phone: Start: 11-27-2021 End: 11-28-2021 Emergency department patient visit Larry Eugene [facility] Emergency 15 Start: 11-04-2021 Office outpatient vi sit 25 minutes Jeanie M Tavallaee Work Phone: [facility] Internal Medicine Work Phone: Start: 10-30-2021 Chart Update Jeanie M Tava llaee Work Phone: [facility] Internal Medicine Work Phone: Start: 10-29-2021 Chart Update Jeanie M Tava llaee Work Phone: [facility] Internal Medicine Work Phone: Start: 08-12-2021 Office outpatient vi sit 25 minutes Jeanie M Tavallaee Work Phone: [facility] Internal Medicine Work Phone: Start: 08-12-2021 Patient encounter procedure Jeanie M Tavallaee Work Phone: [facility] Internal Medicine Work Phone: Start: 08-06-2021 Chart Update Jeanie M Tava llaee Work Phone: [facility] Internal Medicine Work Phone: Start: 07-18-2021 Transcribe Orders Julian Galeana MD Work Phone: [facility] Comment on above: Fracture of bone of nasal sinus (HCC) (Primary Dx) Start: 07-17-2021 Office outpatient vi sit 25 minutes Jeanie M Tavallaee Work Phone: [facility] Internal Medicine Work Phone: Start: 07-14-2021 Office outpatient vi sit 10 minutes Jeanie M Tavallaee Work Phone: [facility] Work Phone: Start: 07-10-2021 End: 07-10-2021 Emergency department patient visit Larrycari Eugene [facility] Emergency 10 Start: 07-09-2021 Chart Update Jeanie Pimentela llaee Work Phone: [facility] Work Phone: Start: 07-07-2021 Chart Update Jeanie M Tava llaee Work Phone: [facility] Work Phone: Start: 06-24-2021 Office outpatient vi sit 15 minutes Jeanie Pimentelallaee Work Phone: [facility] Internal Medicine Work Phone: Start: 05-27-2021 End: 05-27-2021 Emergency department patient visit Franco Heaton [facility] Start: 05-19-2021 RONNIEJOHAN, Provider: Kindra Bruce, Status: Pen, Time: 1:00 PM Jeanie Pimentelallaee Work Phone: [facility] Internal Medicine Work Phone: Start: 05-19-2021 Office outpatient vi sit 25 minutes Jeanie Pimentelallaee Work Phone: [facility] Internal Medicine Work Phone: Start: 05-19-2021 AUDIT Jeanie M Tava llaee Work Phone: [facility] Internal Medicine Work Phone: Start: 05-18-2021 End: 05-18-2021 Emergency department patient visit Lit Ledezma [facility] Emergency 01 Start: 05-15-2021 End: 05-15-2021 Emergency department patient visit Shilpa Douglas [facility] Emergency 08 Start: 05-14-2021 End: 05-14-2021 Emergency department patient visit Tenisha Lane [facility] Emergency 13 Start: 04-23-2021 Chart Update Jeanie armenta Work Phone: [facility] Internal Medicine Work Phone: Start: 04-08-2021 FUV, Provider: Jeanie Ayala, Status: Pen, Time: 11:45 AM Jeanie Ayala Work Phone: [place] [address] [employer] Work Phone: Start: 04-08-2021 Patient encounter procedure Jeanie Ayala Work Phone: [facility] Internal Medicine Work Phone: Start: 04-07-2021 Office outpatient vi sit 10 minutes Jeanie Ayala Work Phone: [facility] Work Phone: Start: 12-25-2020 Patient encounter procedure Jeanie Ayala [facility] Internal Medicine Work Phone: Start: 12-18-2020 End: 12-18-2020 Office outpatient new 45 minutes Julian Galeana Work Phone: [facility] Comment on above: Fracture of nasal vandana corey, subsequent encounter for fracture with routine healing (Primary Dx); Mucous retention cyst of maxillary sinus Start: 12-05-2020 End: 12-05-2020 Orders Only Chance Antonio Work Phone: [facility] Start: 12-01-2020 End: 12-03-2020 Emergency department patient visit Christiano Olivares Work Phone: [facility] Intermediate Comment on above: Seizures (HCC) (Prim xavier Dx); Medication refill; Closed fracture of nasal bone, initial encounter; Weakness; Hypokalemia; Thrombocytopenia (HCC); Closed undisplaced fracture of nasal bone, initial encounter; Hypothyroidism, unspecified type; Gastroesophageal reflux disease, unspecified whether esophagitis present; Essential hypertension; Acute kidney injury superimposed on CKD (HCC); Seizure (HCC); Valproic acid toxicity, accidental or unintentional, subsequent encounter; Chest pain at rest; History of UTI; Obesity, Class I, BMI 30.0-34.9 (see actual BMI); Depression with anxiety; Scalp psoriasis; Hiatal hernia; Hirsutism Start: 11-26-2020 Patient encounter procedure Jeanie Ayala -[facility] Internal Medicine Work Phone: Start: 06-18-2020 Patient encounter procedure Urban Purdy HR-Axalumcbu-Itliafov [facility] Work Phone: Start: 03-14-2020 Patient encounter procedure Urban Purdy JW-Btkpunrsy-Acgkdmmv [facility] Work Phone: Start: 10-30-2019 Patient encounter procedure Urban Purdy OZ-Fcaqgkded-Lhwpeisq [facility] Work Phone: Start: 09-25-2019 Patient encounter procedure Anel Velasquez [facility] [place] [address] [employer] Work Phone: Start: 08-07-2019 Patient encounter procedure Anel Velasquez [facility] [place] [address] [employer] Work Phone: Start: 03-31-2019 End: 03-31-2019 Patient encounter procedure Jemma Figueroa [facility] Physicians Start: 03-27-2019 End: 03-27-2019 ambulatory Jemma Figueroa RN [facility] Phys[facility] Start: 03-27-2019 Follow-up encounter Jemma Figueroa RN [facility] Phys[facility] Comment on above: Transition Of Care ( follow up d/c 03/16/19); [facility] ED/OBS Engine Lathe Set Up Operator Tool Visit (ED visit 03/18/19); Tremors (anxiety induced) Start: 03-17-2019 End: 03-17-2019 Patient encounter procedure Jemma Figueroa [facility] Physicians Comment on above: Transition Of Care ( INitial outreach) Start: 03-16-2019 End: 03-16-2019 Evaluation and management of inpatient Karin Richards Work Phone: [facility] EEG Comment on above: Arrived Start: 03-16-2019 End: 03-16-2019 Emergency department patient visit Generic [facility] Phys[facility] Work Phone: [facility] Medical Observation Start: 03-08-2019 End: 03-12-2019 Office outpatient visit 15 minutes Nedra Brewer Work Phone: [facility] Physicians Comment on above: Valproic acid toxici ty, accidental or unintentional, subsequent encounter (Primary Dx); Hypokalemia; Thrombocytopenia (HCC) Start: 03-01-2019 End: 03-05-2019 Transitional care manage srvc 14 day discharge Nedra Brewer Work Phone: [facility] Physicians Comment on above: Valproic acid toxici ty, accidental or unintentional, subsequent encounter; Essential hypertension Start: 02-28-2019 End: 02-28-2019 Patient Outreach Jemma Reyna [facility] Phys[facility] Comment on above: Transition Of Care Start: 12-26-2018 End: 12-26-2018 Patient encounter procedure Zeke Onofre Work Phone: [facility] & Vascular Physicians Comment on above: Arrived Chest pain at rest Start: 12-26-2018 End: 12-26-2018 Subsequent hospital visit by physician Zeke Onofre Work Phone: [facility] Phys[facility] Comment on above: Arrived Start: 12-08-2018 Patient encounter procedure Zeke Onofre Facility:[place] Start: 11-22-2018 End: 11-22-2018 Office outpatient visit 25 minutes Dimas Brooke Work Phone: [facility] Primary Care Physicians Comment on above: Essential hypertensi on; Chronic kidney disease, stage III (moderate) (HCC); Viral URI Start: 11-22-2018 Patient encounter procedure Zeke Onofre Facility:[place] Start: 11-22-2018 End: 11-22-2018 Patient encounter procedure Zeke Onofre Work Phone: [facility] Start: 11-22-2018 End: 11-22-2018 Office consultation new/estab patient 60 min Zeke Krishnan [place] Work Phone: [facility] Phys[facility] Comment on above: Chest pain at rest; Essential hypertension; Chronic kidney disease, stage III (moderate) (HCC) Start: 10-24-2018 End: 10-24-2018 Patient encounter procedure Kindra M Kenyon [facility] Physicians Comment on above: PRIOR AUTHORIZATION (CARDURA) Start: 10-12-2018 End: 10-12-2018 Office outpatient visit 25 minutes Nedra Brewer Work Phone: [facility] Care Physicians Comment on above: Chest pain at rest ( Primary Dx); Essential hypertension; Chronic kidney disease, stage III (moderate) (HCC) Start: 09-01-2018 Refill Dimas desai MD Work Phone: [facility] Physicians Start: 07-08-2018 End: 07-08-2018 Patient encounter Jemma Figueroa [facility] Physicians Comment on above: Chronic Care Managem ent (follow up) Start: 06-16-2018 Patient encounter procedure Dimas Brooke Facility:[place] Start: 06-16-2018 End: 06-16-2018 Office outpatient visit 25 minutes Dimas Brooke Work Phone: [facility] Care Physicians Comment on above: History of UTI (Prim xavier Dx); Gastroesophageal reflux disease, esophagitis presence not specified; Essential hypertension; Obesity, Class I, BMI 30.0-34.9 (see actual BMI) Start: 06-15-2018 Patient encounter Jemma Figueroa [facility] Physicians Start: 06-10-2018 Patient encounter Jemma Figueroa [facility] Physicians Start: 06-06-2018 Patient encounter Jemma Figueroa [facility] Physicians Start: 06-03-2018 Patient encounter Jemma Figueroa [facility] Primary Care Physicians Start: 05-19-2018 End: 05-19-2018 Office outpatient visit 15 minutes Dimas Brooke Work Phone: [facility] Primary Care Physicians Start: 05-13-2018 End: 05-14-2018 Emergency department patient visit SUMMER HALEY Facility: Start: 05-03-2018 End: 05-03-2018 Office outpatient visit 25 minutes Dimas Brooke Work Phone: [facility] Primary Care Physicians Start: 04-22-2018 Emergency department patient visit Facility:[facility] Start: 03-15-2018 End: 03-15-2018 Emergency department patient visit Bobby Zavala Facility:[place] Start: 01-04-2018 End: 01-04-2018 Office/outpatient visit, est, level 4 Dimas Brooke Work Phone: [facility] Care Physicians Start: 01-02-2018 End: 01-02-2018 Emergency department patient visit Leigh Ann Ayala Facility:[place] Start: 09-15-2017 End: 09-16-[address] [facility] Start: 08-12-2017 Ambulatory [facility] Facility: [facility] Start: 08-06-2017 ERRONEOUS ENCOUNTER-DISREGARD Dimas Brooke Work Phone: [facility] Primary Care Physicians Start: 07-15-2017 Postop follow-up visit Williams Lobo Work Phone: [facility] Surgical Specialists Start: 07-06-2017 End: 07-06-2017 Patient encounter procedure Dimas Brooke Work Phone: [facility] Care Physicians Comment on above: ERRONEOUS ENCOUNTER- -DISREGARD (Primary Dx) Start: 06-28-2017 Postop follow-up visit Williams Lobo Work Phone: [facility] Start: 01-05-2017 Ambulatory Rishabh Mcdonough [facility] Primary Care Physicians Cancer cervix - scre ening done Jeanie Ayala Work Phone: [address] Work Phone: Comment on above: 01/29/2021;NIL, HPV N EG09/30/17; NIL; Encounter for gynecological examination (general) (routine) without abnormal findings Jeanie Ayala Work Phone: [facility] Internal Medicine Work Phone: Comment on above: 01/29/2021;NIL, HPV N EG09/30/17; NIL; 01/29/2021; COTEST NE 09/30/17; NIL; Menarche Jeanie Go aee Work Phone: [place] [address] [employer] Work Phone: Patient encounter procedure Jeanie Rubio Lorenvenkat Work Phone: [place] [address] [employer] Work Phone: Procedures Date Procedure Procedure Detail Performing Clinician Start: 04-04-[address] Sree Jamison MD Work Phone: Start: 04-04-2025 X-ray of foot, three or more views Dr. Sree Jamison MD Work Phone: Start: 03-21-2025 Urnls dip stick/tabl et reagent auto microscopy Dr. Sree Jamison MD Work Phone: Start: 03-21-[address] Sree Jamison MD Work Phone: Start: 03-15-2025 Comprehensive metabolic panel Srinivasa Luevano MD Work Phone: Start: 03-14-2025 Radiologic examinati on foot 2 views Mee Perez INTER[employer] MARKETING SPECIALIST Work Phone: Start: 03-14-2025 End: 03-14-2025 Comprehensive metabolic panel Srinivasa mullen MD Work Phone: Start: 03-13-2025 Comprehensive metabolic panel Srinivasa Luevano MD Work Phone: Start: 03-13-2025 Thyrotropin [Units/v olume] in Serum or Plasma Sohail Hernandez MD PhD Work Phone: Start: 06-06-2024 Renal function panel Kalen Blanca STEM PROCESSING MACHINE OPERATOR Work Phone: Start: 06-05-2024 End: 06-05-2024 Laparoscopic appendectomy Raúl gillette MD Work Phone: Start: 06-05-2024 Comprehensive metabolic panel Scott Topete MD Work Phone: Start: 06-05-2024 Red blood cell morphology Scott Topete MD Work Phone: Start: 06-05-2024 Electrocardiogram Max Tovar DO Work Phone: Start: 06-04-2024 Assay of troponin quantitative Bang Tovar DO Work Phone: Start: 06-04-2024 RAINBOW DRAW Bang Tovar DO Work Phone: Start: 06-04-2024 URINE MANCILLA CONTAINER Sindhu Johnsonner DO Work Phone: Start: 06-04-2024 Urnls dip stick/tabl et reagent auto microscopy Bang Tovar DO Work Phone: Start: 06-04-2024 Ecg routine ecg w/le ast 12 lds w/i&r Bang Tovar DO Work Phone: Start: 06-04-2024 Ct abdomen & pelvis w/contrast material Bang Tovar DO Work Phone: Start: 06-04-2024 Comprehensive metabolic panel Bang Tovar DO Work Phone: Start: 06-04-2024 MANCILLA TOP Bang Tovar DO Work Phone: Start: 06-04-2024 LAVENDER TOP Bang Frausto Tovar DO Work Phone: Start: 06-04-2024 MINT GREEN TOP Bang Tovar DO Work Phone: Start: 06-04-2024 RAINBOW DRAW Bang Tovar DO Work Phone: Start: 06-04-2024 Red blood cell morphology Bang Johnsonner DO Work Phone: Start: 04-27-2024 David Hudson MD Work Phone: Start: 03-05-2024 Thyrotropin [Units/v olume] in Serum or Plasma Mejia Cullen MD Work Phone: Start: 03-04-2024 Microalbumin [Mass/v olume] in Urine by Test strip Raúl Hudson MD Work Phone: Start: 01-01-2024 Assay of troponin quantitative Naveen Hernandez DO Work Phone: Start: 01-01-2024 Comprehensive metabolic panel Naveen Hernandez DO Work Phone: Start: 01-01-2024 Drug assay valproic dipropylacetic acid total Naveen Hernandez DO Work Phone: Start: 01-01-2024 Red blood cell morphology Naveen Hernandez DO Work Phone: Start: 01-01-2024 Thyrotropin [Units/v olume] in Serum or Plasma Mejia Cullen MD Work Phone: Start: 01-01-2024 Polymerase chain lynn ction analysis Naveen Hernandez DO Work Phone: Start: 12-31-2023 Hemoglobin glycosylated a1c Naveen Hernandez DO Work Phone: Start: 12-31-2023 Electrocardiogram Luisyolanda Tarango MD Work Phone: Start: 12-31-2023 Ct angiography chest w/contrast/noncontrast Kindra Lopez [facility] Work Phone: Start: 12-31-2023 Ecg routine ecg w/le ast 12 lds w/i&r Kindra Lopez [facility] Work Phone: Start: 12-31-2023 Radiologic exam ches t single view Kindra Lopez [facility] Work Phone: Start: 12-31-2023 Comprehensive metabolic panel Kindra Lopez STEM PROCESSING MACHINE OPERATOR Work Phone: Start: 12-31-2023 MANCILLA TOP Moe Tarango MD Work Phone: Start: 12-31-2023 LAVENDER TOP Moe Tarango MD Work Phone: Start: 12-31-2023 LIGHT BLUE TOP Moe Tarango MD Work Phone: Start: 12-31-2023 Lipid panel Moe Tarango MD Work Phone: Start: 12-31-2023 MINT GREEN TOP Moe Tarango MD Work Phone: Start: 12-31-2023 RAINBOW DRAW Moe Tarango MD Work Phone: Start: 12-31-2023 Ecg routine ecg w/le ast 12 lds w/i&r Moe Tarango MD Work Phone: Start: 11-17-2023 CT LUMBAR SPINE WO IV CONTRAST JEANIE TAVALLAEE Start: 11-17-2023 CT THORACIC SPINE WO IV CONTRAST JEANIE TAVALLAEE Start: 11-17-2023 CT CERVICAL SPINE WO IV CONTRAST JEANIE TAVALLAEE Start: 11-17-2023 Ct cervical spine w/ o contrast material Larry Eugene DO Work Phone: Start: 10-14-2023 DISCHARGE PATIENT MEHRD AD TAVALLAEE Start: 10-14-2023 FOLLOW UP WITH PROVIDER JEANIE TAVALLAEE Start: 10-14-2023 ADULT DISCHARGE DIET ME HRDAD TAVALLAEE Start: 10-14-2023 DISCHARGE ACTIVITY LAM DAD TAVALLAEE Start: 10-14-2023 NOTIFY PROVIDER (DO NOT PROMPT FOR PARAMETERS) JEANIE TAVALLAEE Start: 10-14-2023 WOUND CARE JEANIE TA VALLAEE Start: 10-14-2023 PULSE OXIMETRY, CONTINUOUS JEANIE TAVALLAEE Start: 10-14-2023 FULL CODE JEANIE TA VALLAEE Start: 10-14-2023 PLACE IN OUTPATIENT/ HOSPITAL AMBULATORY SURGERY JEANIE TAVALLAEE Start: 10-05-2023 CARDIOLOGY INTERPRET ATION OF NUCLEAR STRESS JEANIE TAVALLAEE Start: 10-05-2023 NUCLEAR STRESS TEST LEANDRO RDAD TAVALLAEE Start: 10-05-2023 HOLTER OR EVENT CARD IAC MONITOR JEANIE TAVALLAEE Start: 10-05-2023 Cv strs tst xers&/or rx cont ecg trcg only Everett Haywood MD Work Phone: Start: 09-16-2023 DISCHARGE PATIENT MEHRD AD TAVALLAEE Start: 09-16-2023 APPLY FRANCISCO WRAP JEANIE TAVALLAEE Start: 09-16-2023 CHANGE DRESSING JEANIE TAVALLAEE Start: 09-16-2023 XR ELBOW RIGHT 3+ VIEWS JEANIE TAVALLAEE Start: 09-16-2023 CT HEAD WO IV CONTRAST JEANIE TAVALLAEE Start: 09-16-2023 Radex elbow complete minimum 3 views Dimas Lin MD Work Phone: Start: 09-16-2023 Ct head/brain w/o co ntrast material Dimas Lin MD Work Phone: Start: 09-01-2023 XR CHEST 2 VIEWS MEHRDA D TAVALLAEE Start: 09-01-2023 ECG 12-LEAD JEANIE TA VALLAEE Start: 09-01-2023 Comprehensive metabo lic 2000 panel - Serum or Plasma JEANIE TAVALLAEE Start: 09-01-2023 Hemoglobin A1c/Hemoglobin.total in Blood JEANIE TAVALLAEE Start: 09-01-2023 TYPE AND SCREEN JEANIE TAVALLAEE Start: 09-01-2023 Radiologic exam chest 2 views Matthew Pérez MD Work Phone: Start: 09-01-2023 Ecg routine ecg w/le ast 12 lds trcg only w/o i&r Matthew Pérez MD Work Phone: Start: 08-25-2023 XR SACRUM COCCYX 2+ VIEWS JEANIE TAVALLAEE Start: 08-25-2023 XR RIBS RIGHT 2 VIEW S WITH CHEST ANTEROPOSTERIOR JEANIE TAVALLAEE Start: 08-25-2023 XR SHOULDER RIGHT 2+ VIEWS JEANIE TAVALLAEE Start: 08-25-2023 CT HEAD WO IV CONTRAST JEANIE TAVALLAEE Start: 08-25-2023 CT CERVICAL SPINE WO IV CONTRAST JEANIE TAVALLAEE Start: 08-25-2023 End: 08-25-2023 Radex ribs uni w/posteroant ch minimum 3 views Abhi Richards DO Work Phone: Start: 08-25-2023 Ct cervical spine w/ o contrast material Abhi Richards DO Work Phone: Start: 08-25-2023 Ct head/brain w/o co ntrast material Abhi Richards DO Work Phone: Start: 08-13-2023 DISCHARGE PATIENT MEHRD AD TAVALLAEE Start: 08-13-2023 Bacteria identified in Urine by Culture JEANIE TAVALLAEE Start: 08-13-2023 EXTRA URINE HILL TUBE M EHRDAD TAVALLAEE Start: 08-13-2023 MICROSCOPIC ONLY, URINE JEANIE TAVALLAEE Start: 08-13-2023 URINALYSIS WITH REFL EX MICROSCOPIC AND CULTURE JEANIE TAVALLAEE Start: 08-13-2023 EXTRA URINE HILL TUBE R josias Gutierrez DO Work Phone: Start: 08-13-2023 Urinalysis complete W Reflex Culture panel - Urine Lopez Gutierrez DO Work Phone: Start: 08-13-2023 Urinalysis microscop ic panel - Urine Qualitative by Automated Lopez Gutierrez DO Work Phone: Start: 08-13-2023 Urnls dip stick/tabl et reagent auto microscopy Lopez Gutierrez DO Work Phone: Start: 08-13-2023 XR CHEST 1 VIEW JEANIE TAVALLAEE Start: 08-13-2023 CBC W Auto Different ial panel - Blood JEANIE TAVALLAEE Start: 08-13-2023 Comprehensive metabo lic 2000 panel - Serum or Plasma JEANIE TAVALLAEE Start: 08-13-2023 Lactate [Moles/volum e] in Serum or Plasma JEANIE TAVALLAEE Start: 08-13-2023 TROPONIN SERIES- (IN ITIAL, 1 HR) JEANIE TAVALLAEE Start: 08-13-2023 ECG 12-LEAD JEANIE TA VALLAEE Start: 08-13-2023 Radiologic exam ches t single view Lopez Gutierrez DO Work Phone: Start: 08-13-2023 End: 08-13-2023 Comprehensive metabolic panel Lopez Gutierrez DO Work Phone: Start: 08-13-2023 Troponin I.cardiac p ede - Serum or Plasma by High sensitivity method Lopez Gutierrez DO Work Phone: Start: 08-02-2023 EXTRA URINE HILL TUBE M EHRDAD TAVALLAEE Start: 08-02-2023 URINALYSIS WITH REFL EX MICROSCOPIC AND CULTURE JEANIE TAVALLAEE Start: 08-02-2023 Basic metabolic 2000 panel - Serum or Plasma JEANEI TAVALLAEE Start: 08-02-2023 CBC W Auto Different ial panel - Blood JEANIE TAVALLAEE Start: 07-29-2023 CBC W Auto Different ial panel - Blood JEANIE TAVALLAEE Start: 07-29-2023 Comprehensive metabo lic 2000 panel - Serum or Plasma JEANIE TAVALLAEE Start: 07-29-2023 VALPROIC ACID JEANIE T AVALLAEE Start: 07-13-2023 Urnls dip stick/tabl et rgnt auto w/o microscopy Jeanie Ayala MD Work Phone: Start: 06-14-2023 End: 06-14-2023 EKG impression Larry Eugene Start: 06-02-2023 CBC W Auto Different ial panel - Blood JEANIE TAVALLAEE Start: 06-02-2023 Comprehensive metabo lic 2000 panel - Serum or Plasma JEANIE TAVALLAEE Start: 06-02-2023 Hemoglobin A1c/Hemoglobin.total in Blood JEANIE TAVALLAEE Start: 06-02-2023 Lipid panel JEANIE TA VALLAEE Start: 06-02-2023 Magnesium [Mass/volu me] in Serum or Plasma JEANIE TAVALLAEE Start: 06-02-2023 TSH WITH REFLEX TO F REE T4 IF ABNORMAL JEANIEMilagro GOAEDarrell Start: 06-02-2023 Urate [Mass/volume] in Serum or Plasma JEANIE AYALA Start: 06-02-2023 Lipid 1996 panel - S kaveh or Plasma Jeanie Ayala MD Work Phone: Start: 06-02-2023 Thyrotropin [Units/v olume] in Serum or Plasma Jeanie Ayala MD Work Phone: Start: 04-01-2023 Thyrotropin [Units/v olume] in Serum or Plasma Jeanie Ayala MD Work Phone: Start: 01-07-2023 End: 01-07-2023 EKG impression Shilpa Prescottmoeo Start: 01-07-2023 End: 01-07-2023 EKG impression Abhi Lashon Richards Start: 12-07-2022 End: 12-07-2022 EKG impression Andres Hussein Start: 11-26-2022 Thyrotropin [Units/v olume] in Serum or Plasma Sammie Iglesias MD Work Phone: Start: 11-12-2022 Echocardiography Mehrda milagro Goaee Start: 11-12-2022 Echocardiography Mehrda d M Tavallaedarrell Work Phone: Start: 05-10-2022 End: 05-10-2022 EKG impression Dinesh Faryar Start: 05-10-2022 End: 05-10-2022 EKG impression Dinesh Faryar Start: 03-06-2022 Mammography Jeanie díaz MD Work Phone: Start: 11-27-2021 End: 11-27-2021 EKG impression Larry Eugene Start: 08-05-2021 Lipid 1996 panel - S kaveh or Plasma Sammie Iglesias MD Work Phone: Start: 05-14-2021 End: 05-14-2021 EKG impression Tenisha I Moomaw Start: 05-14-2021 End: 05-14-2021 EKG impression Tenisha I Devonomaw Start: 01-29-2021 Microscopic observat ion [Identifier] in Cervix by Cyto stain Jeanie Ayala MD Work Phone: Start: 12-02-2020 Basic metabolic 2000 panel - Serum or Plasma Veronika Hernandez Work Phone: Start: 12-02-2020 Complete blood count (hemogram) panel - Blood by Automated count Veronika Hernandez Work Phone: Start: 12-01-2020 COVID-19/INFLUENZA A ,B MOLECULAR Christiano Olivares Work Phone: Start: 12-01-2020 CT cervical spine wi thout contrast Christiano Olivares Work Phone: Start: 12-01-2020 CT of face Christiano Wong l Work Phone: Start: 12-01-2020 CT of head without contrast Christiano Olivares Work Phone: Start: 12-01-2020 MANCILLA TOP Christiano Wong l Work Phone: Start: 12-01-2020 LIGHT BLUE TOP Christiano Pa tel Work Phone: Start: 12-01-2020 LIGHT GREEN TOP Christiano P atel Work Phone: Start: 12-01-2020 RAINBOW DRAW Christiano Wong l Work Phone: Start: 12-01-2020 Basic metabolic 1998 panel - Serum or Plasma Christiano Olivares Work Phone: Start: 12-01-2020 Complete blood count with white cell differential, automated Christiano Olivares Work Phone: Start: 12-01-2020 Complete blood count with white cell differential, manual Christiano Olivares Work Phone: Start: 12-01-2020 Hepatic function 200 0 panel - Serum or Plasma Christiano Olivares Work Phone: Start: 12-01-2020 Thyrotropin [Units/v olume] in Serum or Plasma by Detection limit <= 0.005 mIU/L Veronika Maria L Hernandez Work Phone: Start: 06-18-2020 Assay of copper Urban Rajwinder Start: 06-18-2020 Assay of folic acid serum Urban Mcdonaldcamila Start: 06-18-2020 Assay of mercury quantitative Urban Mcdonaldcamila Start: 06-18-2020 Blood count complete auto&auto difrntl wbc Urban Rajwinder Start: 06-18-2020 CELIAC DISEASE SEROLOGY PANEL Urban Rajwinder Start: 06-18-2020 Ceruloplasmin Urban Rashad cronin Start: 06-18-2020 Cyanocobalamin vitamin b-12 Urban Rajwinder Start: 06-18-2020 Immunoassay analyte quant radioimmunoassay Urban Rajwinder Start: 06-18-2020 TSH WITH REFLEX TO F REE T4 IF ABNORMAL Urban Purdy Start: 03-16-2019 Glucose [Mass/volume] in Blood Luis Moody Work Phone: Start: 03-16-2019 Electroencephalogram w/rec awake&asleep Karin Richards Work Phone: Start: 03-16-2019 Thyrotropin [Units/v olume] in Serum or Plasma by Detection limit <= 0.005 mIU/L Karin Richards Work Phone: Start: 03-16-2019 Valproate [Mass/volu me] in Serum or Plasma Karin Richards Work Phone: Start: 03-16-2019 Cyanocobalamin vitamin b-12 Karin Richards Work Phone: Start: 03-16-2019 End: 03-16-2019 Computerized tomography, limited studies External Transcribed Start: 12-26-2018 Myocardial spect sin gle study at rest or stress Cristy Kingston Work Phone: Start: 11-22-2018 Lipid 1996 panel - S kaveh or Plasma Cristy Kingston Work Phone: Start: 06-16-2018 End: 06-16-2018 Urinalysis macro (dipstick) panel - Urine Dimas Brooke Work Phone: Start: 01-04-2018 Microscopic observat ion [Identifier] in Cervix by Cyto stain Nedra Brewer History of Breast Suggs rgery Reduction Procedure Anel Velasquez Insertion of intraut erine contraceptive device Jeanie Ayala Work Phone: Comment on above: 09/25/2019: Mirena; Reduction mammoplasty Veda Ayala Plan of Treatment Date Care Activity Detail Author Start: 2048 RSV Immunization for Adults (1 - 1-dose 75+ series) RSV Immunization for Adults (1 - 1-dose 75+ series) [facility] Start: 09-16-2033 DTaP/Tdap/Td Vaccines (4 - Td or Tdap) DTaP/Tdap/Td Vaccines (4 - Td or Tdap) [facility] Start: 09-16-2033 Tetanus vaccination [facility] Start: 2033 RSV Immunization aged 60 or older (1 - 1-dose 60+ series) RSV Immunization aged 60 or older (1 - 1-dose 60+ series) [facility] Start: 03-05-2030 DTaP/Tdap/Td Vaccines (3 - Td or Tdap) DTaP/Tdap/Td Vaccines (3 - Td or Tdap) [facility] Start: 03-05-2030 Tetanus vaccination Tetanus: Every 10yrs [facility] Start: 06-02-2028 Lipid panel Lipid Panel [facility] Start: 08-05-2026 Lipid panel Lipid Panel [facility] Start: 03-15-2026 Creatinine measurement Creatinine Level [facility] Start: 03-15-2026 Potassium measurement Potassium Level [facility] Start: 03-13-2026 Thyroid stimulating hormone measurement TSH Level [facility] Start: 08-22-2025 Depression Monitoring Depression Monitoring [facility] Start: 07-27-2025 End: 07-27-2025 Patient encounter procedure 07/27/2025 2:20 PM EDT Office Visit [facility] [address] [place] [phone] Valentina Chopra MD [address] [place] [address] [facility] Start: 06-18-2025 Influenza vaccination Influenza Vaccine (Season Ended) [facility] Start: 06-07-2025 Depression Monitoring Depression Monitoring [facility] Start: 06-06-2025 Creatinine measurement Creatinine Level [facility] Start: 06-06-2025 Potassium measurement Potassium Level [facility] Start: 05-07-2025 End: 05-07-2025 Patient encounter procedure 05/07/2025 3:00 PM EDT Office Visit [facility] Neurology [facility] [address] [place] [address] [address] [place] [phone] Sohail Hernandez MD PhD [address] [place] [address] [facility] Start: 04-27-2025 Screening for malignant neoplasm of breast Mammogram [facility] Start: 04-25-2025 End: 04-25-2025 Patient encounter procedure [facility] Building Start: 04-20-2025 Yearly Adult Physical Yearly Adult Physical [facility] Start: 04-19-2025 History and physical examination, annual for health maintenance Wellness Visit [facility] Start: 04-04-2025 [facility] Start: 04-04-2025 Consultation [facility] Start: 04-04-2025 Referral to service [facility] Start: 03-21-2025 [facility] Start: 03-05-2025 Diabetes mellitus screening Diabetes Screening [facility] Start: 03-05-2025 Thyroid stimulating hormone measurement TSH Level [facility] Start: 03-04-2025 Urine screening for protein Urine Microalbumin [facility] Start: 02-19-2025 End: 02-19-2026 EEG R PROGRAMMER MONITORING 2 - 3 DAY EVAL EEG SNF MONITORING 2 - 3 DAY EVAL Neurology Routine Focal epilepsy with impairment of consciousness, intractable (HCC) Expected: 02/19/2025 (Approximate), Expires: 02/19/2026 [facility] Work Phone: Comment on above: Expected: 02/19/2025 (Approximate), Expi res: 02/19/2026 Start: 02-19-2025 End: 02-19-2025 Patient encounter procedure 02/19/2025 1:00 PM EDT Office Visit [facility] [address] [place] [phone] Sohail Hernandez MD PhD [address] [facility] [facility] [address] [place] [address] [facility] Start: 01-25-2025 End: 01-25-2025 Patient encounter procedure 01/25/2025 2:20 PM EDT Office Visit [facility] [address] [place] [phone] Valentina Chopra MD [address] [place] [address] [facility] Start: 01-25-2025 End: 01-25-2026 Hepatic function 2000 panel - Serum or Plasma Hepatic function panel Lab Routine 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, intractable (HCC) Dizziness Expected: 01/25/2025 (Approximate), Expires: 01/25/2026 [facility] [employer] Comment on above: Expected: 01/25/2025 (Approximate), Expi res: 01/25/2026 Start: 01-25-2025 End: 01-25-2026 LEVETIRACETAM LEVEL LEVETIRACETAM LEVEL Lab Rout ine 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, intractable (HCC) Dizziness Expected: 01/25/2025 (Approximate), Expires: 01/25/2026 [facility] [employer] Comment on above: Expected: 01/25/2025 (Approximate), Expi res: 01/25/2026 Start: 01-25-2025 End: 01-25-2026 Valproic acid level, total Valproic acid level, total Lab Routine 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, intractable (HCC) Dizziness Expected: 01/25/2025 (Approximate), Expires: 01/25/2026 [facility] Work Phone: Comment on above: Expected: 01/25/2025 (Approximate), Expi res: 01/25/2026 Start: 12-31-2024 Thyroid stimulating hormone measurement TSH Level [facility] [employer] Start: 12-08-2024 End: 12-08-2025 EEG R PROGRAMMER MONITORING 2 - 3 DAY EVAL EEG SNF MONITORING 2 - 3 DAY EVAL Neurology Routine Focal epilepsy with impairment of consciousness, intractable (HCC) Expected: 12/08/2024 (Approximate), Expires: 12/08/2025 [employer] Work Phone: Comment on above: Expected: 12/08/2024 (Approximate), Expi res: 12/08/2025 Start: 10-26-2024 End: 10-26-2025 EEG R PROGRAMMER MONITORING 2 - 3 DAY EVAL EEG SNF MONITORING 2 - 3 DAY EVAL Neurology Routine Focal epilepsy with impairment of consciousness, intractable (HCC) Expected: 10/26/2024 (Approximate), Expires: 10/26/2025 [facility] [employer] Work Phone: Comment on above: Expected: 10/26/2024 (Approximate), Expi res: 10/26/2025 Start: 10-26-2024 End: 10-26-2024 Patient encounter procedure 10/26/2024 12:40 PM EST Office Visit [facility] [address] [place] [phone] Valentina Chopra MD [address] [place] [address] [facility] Start: 10-26-2024 End: 10-26-2024 Patient encounter procedure 10/26/2024 11:30 AM EST Office Visit [address] [place] [phone] Sohail Hernandez MD [address] [place] [address] [facility] Start: 09-01-2024 Creatinine measurement Creatinine Level [facility] Start: 09-01-2024 Diabetes mellitus screening Diabetes Screening [facility] Start: 09-01-2024 Potassium measurement Potassium Level [facility] Start: 08-30-2024 End: 08-30-2024 Patient encounter procedure [facility] Start: 08-13-2024 Creatinine measurement Creatinine Level [facility] Start: 08-13-2024 Potassium measurement Potassium Level [facility] Start: 08-11-2024 End: 08-11-2024 Patient encounter procedure 08/11/2024 3:00 PM EDT Office Visit [facility] [address] [place] [phone] Sohail Hernandez MD PhD [facility] [employer] [facility] [address] [place], [place] [phone] [facility] Start: 08-01-2024 Creatinine measurement Creatinine Level [facility] Start: 08-01-2024 Potassium measurement Potassium Level [facility] Start: 07-18-2024 End: 07-18-2024 Patient encounter procedure [facility] Start: 07-07-2024 End: 07-07-2025 EEG SNF MONITORING 2 - 3 DAY EVAL EEG SNF MONITORING 2 - 3 DAY EVAL Neurology Routine 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) Expected: 07/07/2024 (Approximate), Expires: 07/07/2025 [facility] [employer] [facility] Work Phone: Comment on above: Expected: 07/07/2024 (Approximate), Expi res: 07/07/2025 Start: 07-07-2024 End: 07-07-2024 Patient encounter procedure 07/07/2024 11:30 AM EDT Office Visit [facility] [address] [place] [phone] Sohail Hernandez MD PhD [address] [place], [place] [address] [address] [place] [address] [facility] Start: 07-04-2024 End: 07-04-2024 Patient encounter procedure 07/04/2024 11:30 AM EDT Office Visit [address] [phone] Mejia Cullen MD [address] [place] [phone] [facility] Start: 06-18-2024 COVID-19 Vaccine ( season) COVID-19 Vaccine ( season) [facility] Start: 06-18-2024 COVID-19 Vaccine ( season) COVID-19 Vaccine ( season) [facility] Start: 06-18-2024 Influenza vaccination [facility] Start: 06-16-2024 End: 06-16-2024 Follow-up encounter 06/16/2024 2:15 PM EDT Follow-Up [facility] [address] [facility], [address] [place] [address] Raúl Hudson MD [address] [place] [address] [address] [place] [address] [facility] Start: 06-13-2024 Creatinine measurement Creatinine Level [facility] Start: 06-13-2024 Potassium measurement Potassium Level [facility] Start: 06-02-2024 Diabetes mellitus screening Diabetes Screening [facility] Start: 06-02-2024 Thyroid stimulating hormone measurement TSH Level [facility] Start: 04-27-2024 End: 04-27-2024 Patient encounter procedure 04/27/2024 2:30 PM EDT Appointment [address] [phone] [facility] Start: 04-17-2024 End: 04-17-2024 Patient encounter procedure 04/17/2024 9:00 AM EDT Office Visit [facility] [address] [place] [phone] Valentina Chopra MD [address] [place] [address] [facility] Start: 04-04-2024 End: 04-04-2024 Patient encounter procedure 04/04/2024 11:30 AM EDT Office Visit [facility] [address] [place] [phone] Mejia Cullen MD [address] [place] [address] [facility] Start: 04-01-2024 Creatinine measurement Creatinine Level [facility] Start: 04-01-2024 Potassium measurement Potassium Level [facility] Start: 04-01-2024 Thyroid stimulating hormone measurement TSH Level [facility] Start: 02-21-2024 Creatinine measurement Creatinine Level [facility] Start: 02-21-2024 Potassium measurement Potassium Level [facility] Start: 02-17-2024 Urine screening for protein CKD: Urine Protein Screening [facility] Start: 02-01-2024 End: 02-01-2024 Patient encounter procedure 02/01/2024 10:30 AM EDT Office Visit [facility] Medical Office Building Jose Alberto [address] [place] [address] Kindra Downing, DISTRICT MANAGER PRIMARY CARE SALES-STEM PROCESSING MACHINE OPERATOR [address] [place] [address] [facility] Medical Office [facility] Start: 01-30-2024 Screening for malignant neoplasm of cervix [facility] Start: 01-08-2024 Creatinine measurement Creatinine Level [facility] Start: 01-08-2024 Potassium measurement Potassium Level [facility] Start: 01-03-2024 End: 01-02-2025 XR Shoulder - right 2 Views XR shoulder 2+ views right Imaging Routine Chronic right shoulder pain Expected: 01/03/2024, Expires: 01/02/2025 [facility] [employer] [facility] Work Phone: Comment on above: Expected: 01/03/2024, Expires: Start: 01-03-2024 End: 01-03-2024 Patient encounter procedure 01/03/2024 1:00 PM EDT Office Visit [address] [phone] Mejia Cullen MD [address] [place] [phone] [facility] Start: 12-24-2023 End: 12-24-2023 Patient encounter procedure 12/24/2023 10:00 AM EST Office Visit [address] [phone] Mejia Cullen MD [address] [place] [phone] [facility] Start: 12-13-2023 End: 12-13-2023 Patient encounter procedure 12/13/2023 11:15 AM EST Office Visit [facility] Medicine [address] [place] [phone] Jeanie Ayala MD [address] [place] [address] [facility] Start: 11-26-2023 Thyroid stimulating hormone measurement TSH Level [facility] Start: 11-23-2023 End: 11-23-2023 Patient encounter procedure 11/23/2023 1:30 PM EST Office Visit [place] [address] [place] [phone] Jeffrey Kumar MD [address] [address] [place] [address] [facility] Start: 11-12-2023 Echocardiography Echocardiogram [facility] Start: 11-10-2023 End: 11-10-2023 Patient encounter procedure 11/10/2023 10:30 AM EST Office Visit [facility] Medical Office Building [address] [place] [phone] Valentina Munoz MD [address] [place], [place] [address] [facility], [address] [place] [address] [facility] Medical Office [facility] Start: 11-08-2023 End: 11-08-2023 Patient encounter procedure 11/08/2023 10:45 AM EST Office Visit [facility] Internal Medicine [address] [place] [phone] Jeanie Ayala MD [address] [place] [address] [facility] Start: 10-29-2023 End: 10-29-2023 Patient encounter procedure 10/29/2023 10:45 AM EST Office Visit [facility] Medical Office Building [facility] [address] [place] [phone] Matthew Pérez MD [address] [place], [place] [address], [facility] [address] [place] [address] [facility] Medical Office Building Start: 10-14-2023 End: 10-14-2023 Admission to same day surgery center 10/14/2023 7:30 AM EST - 10/14/2023 9:20 AM [place] [facility] [place] [facility] [place] [address] [place] [phone] Matthew Pérez MD [address] [place], [place] [address], [facility] [address] [place], [place] [phone] Exploration Laparoscopy [27048 (CPT )] [facility] [place] Comment on above: Exploration Laparoscopy [42369 (CPT )] Start: 10-14-2023 End: 10-14-2023 Insertion intrauterine device iud Insertion Device Uterus Pelvic pain Irregular bleeding Preop testing 10/14/2023 7:30 AM EST Virtual [facility] Start: 10-14-2023 End: 10-14-2023 Laps abd prtm&omentum dx w/wo spec br/wa spx Exploration Laparoscopy Pelvic pain Irregular bleeding Preop testing 10/14/2023 7:30 AM EST [facility] Start: 10-14-2023 Subsequent hospital visit by physician 10/14/2023 6:00 AM EST Hospital Encounter [facility] [place] [address] [place] [address] Matthew Pérez MD [address] [facility] Medical Office, [address] [place] [address] [facility] [place] Start: 10-05-2023 End: 10-05-2023 Patient encounter procedure [facility] Start: 09-28-2023 End: 09-28-2023 Patient encounter procedure 09/28/2023 11:20 AM EST Office Visit [facility] [address] [place] [phone] Satya Faith MD [address] [place] [address] [facility] Start: 09-24-2023 End: 09-24-2023 Patient encounter procedure 09/24/2023 10:30 AM EST Office Visit [facility] Medical Office Building [address] [place] [address] Matthew éPrez MD [address] [facility] Medical Office, [address] [place] [address] [facility] Medical Office Building Start: 09-21-2023 End: 09-21-2024 Holter monitor study Holter Or Event Cardiac [facility] Cardiac Services Routine Preop testing Tachycardia Expected: 09/21/2023, Expires: 09/21/2024 [facility] Work Phone: Comment on above: Expected: 09/21/2023, Expires: Start: 09-21-2023 End: 09-21-2025 US Heart Transthoracic Transthoracic Echo (TTE) Complete Echocardiography Routine Preop testing Tachycardia Expected: 09/21/2023 (Approximate), Expires: 09/21/2025 [facility] Service Area Work Phone: Comment on above: Expected: 09/21/2023 (Approximate), Expi res: 09/21/2025 Start: 09-21-2023 End: 09-21-2023 Patient encounter procedure 09/21/2023 1:30 PM EST Office Visit [facility] Medical Office Building [address] [place] [phone] Everett Walton MD [address] [facility], [address] [place] [address] [facility] Office Building Start: 09-16-2023 End: 09-16-2023 Admission to same day surgery center 09/16/2023 10:30 AM EST - 09/16/2023 12:20 PM [place] [facility] [place] [address] [place] [phone] Matthew Pérez MD [address] [facility], [address] [place] [address] Exploration Laparoscopy [78347 (CPT )] [facility] [place] Comment on above: Exploration Laparoscopy [96404 (CPT )] Start: 09-16-2023 End: 09-16-2023 Insertion intrauterine device iud Insertion Device Uterus Pelvic pain Irregular bleeding Preop testing 09/16/2023 10:30 AM EST Virtual [facility] Start: 09-16-2023 End: 09-16-2023 Laps abd prtm&omentum dx w/wo spec br/wa spx Exploration Laparoscopy Pelvic pain Irregular bleeding Preop testing 09/16/2023 10:30 AM EST [facility] Start: 09-16-2023 Subsequent hospital visit by physician 09/16/2023 9:00 AM EST Hospital Encounter [facility] [place] [address] [place] [id number] Matthew Pérez MD [address] [place] [address] Medical Office, Mohinder [address] [id number] [facility] [place] Start: 2023 Administration of herpes zoster vaccine Zoster Vaccines (1 of 2) [facility] Start: 2023 Screening for malignant neoplasm of colon Flexible sigmoidoscopy [facility] Start: 2023 Zoster vaccine hzv live for subcutaneous use ZOSTER (SHINGLES) VACCINE (1 of 2) [facility] Start: 2023 Zoster Vaccines (1 of 2) Zoster Vaccines (1 of 2) [facility] Start: 09-08-2023 End: 09-08-2025 NM Heart Perfusion W stress and W radionuclide IV Nuclear Stress Test Cardiac Nuclear Medicine Routine Abnormal EKG Chest pain, unspecified type Expected: 09/08/2023 (Approximate), Expires: 09/08/2025 [facility] Service Area Work Phone: Comment on above: Expected: 09/08/2023 (Approximate), Expi res: 09/08/2025 Start: 09-08-2023 End: 09-08-2023 Patient encounter procedure 09/08/2023 11:15 AM EST Office Visit [facility] Internal Medicine [address] [place] [phone] Jeanie Ayala MD [address] [place] [address] [facility] Internal Medicine Start: 09-02-2023 End: 08-19-2024 Valproic acid level, total Valproic acid level, total Lab Routine 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) Expected: 09/02/2023 (Approximate), Expires: 08/19/2024 [facility] Comment on above: Expected: 09/02/2023 (Approximate), Expi res: 08/19/2024 Start: 08-31-2023 End: 08-31-2023 Patient encounter procedure 08/31/2023 10:00 AM EST Office Visit [facility] Internal Medicine [address] [place] [place] [phone] Jeanie Ayala MD [address] [place] [address] [facility] Internal Medicine Start: 08-19-2023 End: 08-19-2024 Levetiracetam level Levetiracetam level Lab Rout ine 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) Expected: 08/19/2023 (Approximate), Expires: 08/19/2024 [facility] Work Phone: Comment on above: Expected: 08/19/2023 (Approximate), Expi res: 08/19/2024 Start: 08-18-2023 End: 08-18-2023 Patient encounter procedure 08/18/2023 2:00 PM EDT Office Visit [facility] Internal Medicine [address] [place] [phone] Jeanie Ayala MD [address] [place] [address] [facility] Medicine Start: 08-16-2023 End: 08-23-2023 Bacteria identified in Urine by Culture Urine culture Microbiology Routine Pelvic pain Expected: 08/16/2023 (Approximate), Expires: 08/23/2023 [facility] Work Phone: Comment on above: Expected: 08/16/2023 (Approximate), Expi res: 08/23/2023 Start: 08-16-2023 End: 08-16-2024 Chlamydia trachomatis and Neisseria gonorrhoeae DNA [Identifier] in Unspecified specimen by CHIARA with probe detection C. Trachomatis / N. Gonorrhoeae, Amplified Detection Lab Routine Screen for STD (sexually transmitted disease) Pelvic pain Expected: 08/16/2023 (Approximate), Expires: 08/16/2024 [facility] Service Area Work Phone: Comment on above: Expected: 08/16/2023 (Approximate), Expi res: 08/16/2024 Start: 08-16-2023 End: 08-16-2023 Patient encounter procedure 08/16/2023 10:30 AM EDT Procedure Visit [facility] Medical Office Building [address] [place] [id number] Matthew Pérez MD [address] [facility] Medical Office, [facility] [address] [place], [place] [id number] [facility] Medical Office Building Start: 08-11-2023 End: 08-11-2023 Patient encounter procedure 08/11/2023 9:45 AM EDT Office Visit [facility] Internal Medicine [address] [place] [phone] Jeanie Ayala MD [address] [place] [address] [facility] Medicine Start: 08-06-2023 End: 08-06-2023 Patient encounter procedure [facility] Med Onc Start: 06-18-2023 COVID-19 Vaccine ( season) COVID-19 Vaccine ( season) [facility] Start: 06-18-2023 Influenza vaccination [facility] Start: 06-17-2023 OTRECHEADT, Provider: Naya Giles, Status: Pen, Time: 10:30 AM OTRECHEADT, Provider: Naya Giles, Status: Pen, Time: 10:30 AM [facility] Work Phone: Start: 06-15-2023 OTRECHEADT, Provider: Naya Giles, Status: Pen, Time: 11:30 AM OTRECHEADT, Provider: Naya Giles, Status: Pen, Time: 11:30 AM [facility] [place] Work Phone: Start: 06-15-2023 Patient encounter procedure Outpatient [facility] Rehab [address] [address] Start: 15-Jun-2023 11:30 Reanna Kemp Intent [facility] Rehab Start: 06-10-2023 OTFUADULT4, Provider: Kari Ocampo, Status: Pen, Time: 10:30 AM OTFUADULT4, Provider: Kari Ocampo, Status: Pen, Time: 10:30 AM [facility] [place] Work Phone: Start: 06-08-2023 OTFUADULT4, Provider: Naya Giles, Status: Pen, Time: 11:15 AM OTFUADULT4, Provider: Naya Giles, Status: Pen, Time: 11:15 AM [facility] [place] Work Phone: Start: 06-04-2023 OTFUADULT4, Provider: Kari Ocampo, Status: Pen, Time: 8:45 AM OTFUADULT4, Provider: Kari Ocampo, Status: Pen, Time: 8:45 AM [facility] [place] Work Phone: Start: 06-03-2023 OTFUADULT4, Provider: Kari Ocampo, Status: Pen, Time: 10:30 AM OTFUADULT4, Provider: Kari Ocampo, Status: Pen, Time: 10:30 AM [facility] [place] Work Phone: Start: 05-28-2023 PTRECHECKA, Provider: Trice Tejada, Status: Pen, Time: 10:45 AM PTRECHECKA, Provider: Trice Tejada, Status: Pen, Time: 10:45 AM [facility] [place] Work Phone: Start: 05-26-2023 AQUATICFU4, Provider: Pippa Freeman, Status: Pen, Time: 10:45 AM AQUATICFU4, Provider: Pippa Freeman, Status: Pen, Time: 10:45 AM [facility] Work Phone: Start: 05-26-2023 OTFUADULT4, Provider: Kari Ocampo, Status: Pen, Time: 9:15 AM OTFUADULT4, Provider: Kari Ocampo, Status: Pen, Time: 9:15 AM [facility] Work Phone: Start: 05-21-2023 AQUATICFU4, Provider: Pippa Freeman, Status: Pen, Time: 10:45 AM AQUATICFU4, Provider: Pippa Freeman, Status: Pen, Time: 10:45 AM [facility] Work Phone: Start: 05-19-2023 AQUATICFU4, Provider: Pippa Freeman, Status: Pen, Time: 11:30 AM AQUATICFU4, Provider: Pippa Freeman, Status: Pen, Time: 11:30 AM [facility] Work Phone: Start: 05-14-2023 AQUATICFU4, Provider: Pippa Freeman, Status: Pen, Time: 8:30 AM AQUATICFU4, Provider: Pippa Freeman, Status: Pen, Time: 8:30 AM [facility] Work Phone: Start: 05-11-2023 AQUATICFU4, Provider: Salma Gamboa, Status: Pen, Time: 1:00 PM AQUATICFU4, Provider: Salma Gamboa, Status: Pen, Time: 1:00 PM [facility] Work Phone: Start: 05-07-2023 AQUATICFU4, Provider: Pippa Freeman, Status: Pen, Time: 10:00 AM AQUATICFU4, Provider: Pippa Freeman, Status: Pen, Time: 10:00 AM [facility] Work Phone: Start: 05-05-2023 AQUATICFU4, Provider: Pippa Freeman, Status: Pen, Time: 11:30 AM AQUATICFU4, Provider: Pippa Freeman, Status: Pen, Time: 11:30 AM [facility] [place] Work Phone: Start: 04-30-2023 FUV, Provider: Matthew Pérez, Status: Pen, Time: 10:45 AM FUV, Provider: Matthew Pérez, Status: Pen, Time: 10:[address] Work Phone: Start: 04-28-2023 PTRECHADUL, Provider: Trice Tejada, Status: Pen, Time: 11:45 AM PTRECHADUL, Provider: Trice Tejada, Status: Pen, Time: 11:45 AM [facility] Work [facility]: Start: 04-28-2023 AQUATICFU4, Provider: Pippa Freeman, Status: Pen, Time: 10:45 AM AQUATICFU4, Provider: Pippa Freeman, Status: Pen, Time: 10:45 AM [facility] Work Phone: Start: 04-28-2023 Patient encounter procedure [facility] Rehab Start: 04-27-2023 OTEVALADUL, Provider: Naya Giles, Status: Pen, Time: 10:45 AM OTEVALADUL, Provider: Naya Giles, Status: Pen, Time: 10:45 AM [facility] [place] Work Phone: Start: 04-26-2023 AQUATICFU4, Provider: Pippa Freeman, Status: Pen, Time: 12:15 PM AQUATICFU4, Provider: Pippa Freeman, Status: Pen, Time: 12:15 PM [facility] [place] Work Phone: Start: 04-26-2023 Patient encounter procedure [facility] Rehab Start: 04-23-2023 AQUATICFU4, Provider: Pippa Freeman, Status: Pen, Time: 9:15 AM AQUATICFU4, Provider: Pippa Freeman, Status: Pen, Time: 9:15 AM [facility] Work Phone: Start: 04-23-2023 Patient encounter procedure [facility] Rehab Start: 04-14-2023 AQUATICFU4, Provider: Pippa Freeman, Status: Pen, Time: 10:00 AM AQUATICFU4, Provider: Pippa Freeman, Status: Pen, Time: 10:00 AM [facility] Work Phone: Start: 04-14-2023 Patient encounter procedure [facility] Rehab Start: 04-09-2023 AQUATICFU4, Provider: Pippa Freeman, Status: Pen, Time: 10:00 AM AQUATICFU4, Provider: Pippa Freeman, Status: Pen, Time: 10:00 AM [facility] Work Phone: Start: 04-09-2023 Patient encounter procedure [facility] Rehab Start: 04-07-2023 AQUATICFU4, Provider: Pippa Freeman, Status: Pen, Time: 10:00 AM AQUATICFU4, Provider: Pippa Freeman, Status: Pen, Time: 10:00 AM [facility] Work Phone: Start: 04-07-2023 Patient encounter procedure [facility] Rehab Start: 04-05-2023 NEWPROB, Provider: Matthew Pérez, Status: Pen, Time: 1:15 PM NEWPROB, Provider: Matthew Pérez, Status: Pen, Time: 1:15 PM [facility] Work Phone: Start: 04-05-2023 Patient encounter procedure [facility] Start: 04-02-2023 AQUATICFU4, Provider: Pippa Freeman, Status: Pen, Time: 10:00 AM AQUATICFU4, Provider: Pippa Freeman, Status: Pen, Time: 10:00 AM [facility] [place] Work Phone: Start: 04-02-2023 Patient encounter procedure Outpatient [facility] Rehab [address] [facility] [address] Start: 02-Apr-2023 10:00 Reanna Kemp Intent [facility] Rehab Start: 03-26-2023 AQUATICFU4, Provider: Pippa Freeman, Status: Pen, Time: 9:15 AM AQUATICFU4, Provider: Pippa Freeman, Status: Pen, Time: 9:15 AM [facility] [place] Work Phone: Start: 03-10-2023 PTRECHADUL, Provider: Trice Tejada, Status: Pen, Time: 10:00 AM PTRECHADUL, Provider: Trice Tejada, Status: Pen, Time: 10:00 AM [facility] [place] Work Phone: Start: 03-08-2023 AQUATICFU4, Provider: Pippa Freeman, Status: Pen, Time: 1:00 PM AQUATICFU4, Provider: Pippa Freeman, Status: Pen, Time: 1:00 PM [facility] [place] Work Phone: Start: 03-06-2023 Screening for malignant neoplasm of breast Mammogram [facility] Start: 03-03-2023 End: 03-03-2023 Patient encounter procedure 03/03/2023 2:00 PM EDT Office Visit [facility] Internal Medicine [address] [place] [address] Jeanie Ayala MD [address] [place] [address] [facility] Internal [facility] Start: 03-03-2023 AQUATICFU4, Provider: Pippa Freeman, Status: Pen, Time: 10:00 AM AQUATICFU4, Provider: Pippa Freeman, Status: Pen, Time: 10:00 AM [facility] Work [facility]: Start: 03-01-2023 AQUATICFU4, Provider: Pippa Freeman, Status: Pen, Time: 1:00 PM AQUATICFU4, Provider: Pippa Freeman, Status: Pen, Time: 1:00 PM [facility] Work Phone: Start: 02-26-2023 AQUATICFU4, Provider: Pippa Freeman, Status: Pen, Time: 10:45 AM AQUATICFU4, Provider: Pippa Freeman, Status: Pen, Time: 10:45 AM [facility] Work Phone: Start: 02-24-2023 FUV, Provider: Jeison Clancy, Status: Pen, Time: 3:00 PM FUV, Provider: Jeison Clancy, Status: Pen, Time: 3:00 PM [facility] Work Phone: Start: 02-24-2023 FUV, Provider: Jeison Clancy, Status: Pen, Time: 11:00 AM FUV, Provider: Jeison Clancy, Status: Pen, Time: 11:00 AM [facility] Work Phone: Start: 02-19-2023 AQUATICFU4, Provider: Pippa Freeman, Status: Pen, Time: 10:45 AM AQUATICFU4, Provider: Pippa Freeman, Status: Pen, Time: 10:45 AM [facility] Work Phone: Start: 02-15-2023 AQUATICFU4, Provider: Pippa Freeman, Status: Pen, Time: 1:45 PM AQUATICFU4, Provider: Pippa Freeman, Status: Pen, Time: 1:45 PM [facility] Work Phone: Start: 02-12-2023 AQUATICFU4, Provider: Pippa Freeman, Status: Pen, Time: 7:45 AM AQUATICFU4, Provider: Pippa Freeman, Status: Pen, Time: 7:45 AM [facility] [place] Work Phone: Start: 02-05-2023 COLON, Provider: Jeanie Ayala, Status: Pen, Time: 9:30 AM COLON, Provider: Jeanie Ayala, Status: Pen, Time: 9:30 AM [facility] [place] Work Phone: Start: 02-05-2023 Patient encounter procedure [facility] Preadmit Start: 02-04-2023 Patient encounter procedure [facility] Med Onc Start: 01-29-2023 Patient encounter procedure [facility] Rehab Start: 01-29-2023 PTRECHADUL, Provider: Trice Tejada, Status: Pen, Time: 8:30 AM PTRECHADUL, Provider: Trice Tejada, Status: Pen, Time: 8:30 AM [facility] Orthopedics [facility] Sports [facility] 300 Work Phone: Start: 01-26-2023 NPV, Provider: Jeison Clancy, Status: Pen, Time: 11:30 AM NPV, Provider: Jeison Clancy, Status: Pen, Time: 11:30 AM [facility] [place] Work Phone: Start: 01-26-2023 Patient encounter procedure [facility] Start: 01-19-2023 FUV, Provider: Reanna Kemp, Status: Pen, Time: 11:00 AM FUV, Provider: Reanna Kemp, Status: Pen, Time: 11:00 AM [facility] Orthopedics [facility] Sports [facility] 300 Work Phone: Start: 01-19-2023 Patient encounter procedure [facility] Orthopedics [place] Start: 01-15-2023 PTRECHADUL, Provider: Trice Tejada, Status: Pen, Time: 10:15 AM PTRECHADUL, Provider: Trice Tejada, Status: Pen, Time: 10:15 AM [facility] [place] Work Phone: Start: 01-15-2023 AQUATICFU4, Provider: Pippa Freeman, Status: Pen, Time: 9:15 AM AQUATICFU4, Provider: Pippa Freeman, Status: Pen, Time: 9:15 AM [facility] Work Phone: Start: 01-15-2023 Patient encounter procedure [facility] Rehab Start: 01-13-2023 NPV, Provider: Jeison Clancy, Status: Pen, Time: 1:15 PM NPV, Provider: Jeison Clancy, Status: Pen, Time: 1:[address] [facility] Work Phone: Start: 01-13-2023 Patient encounter procedure [facility] Start: 01-11-2023 AQUATICFU4, Provider: Pippa Freeman, Status: Pen, Time: 1:45 PM AQUATICFU4, Provider: Pippa Freeman, Status: Pen, Time: 1:45 PM [facility] Work Phone: Start: 01-11-2023 Patient encounter procedure [facility] Rehab Start: 01-08-2023 AQUATICFU4, Provider: Pippa Freeman, Status: Pen, Time: 9:15 AM AQUATICFU4, Provider: Pippa Freeman, Status: Pen, Time: 9:15 AM [facility] Work Phone: Start: 01-08-2023 Patient encounter procedure [facility] Rehab Start: 01-04-2023 AQUATICFU4, Provider: Pippa Freeman, Status: Pen, Time: 1:45 PM AQUATICFU4, Provider: Pippa Freeman, Status: Pen, Time: 1:45 PM [facility] Work Phone: Start: 01-04-2023 Patient encounter procedure [facility] Rehab Start: 12-30-2022 AQUATICFU4, Provider: Pippa Freeman, Status: Pen, Time: 9:15 AM AQUATICFU4, Provider: Pippa Freeman, Status: Pen, Time: 9:15 AM [facility] Work Phone: Start: 12-28-2022 AQUATICFU4, Provider: Pippa Freeman, Status: Pen, Time: 2:30 PM AQUATICFU4, Provider: Pippa Freeman, Status: Pen, Time: 2:30 PM [facility] Work Phone: Start: 12-25-2022 AQUATICFU4, Provider: Pippa Freeman, Status: Pen, Time: 9:15 AM AQUATICFU4, Provider: Pippa Freeman, Status: Pen, Time: 9:15 AM [facility] Work Phone: Start: 12-24-2022 NEWPROB, Provider: Kellie Avery, Status: Pen, Time: 10:15 AM NEWPROB, Provider: Kellie Avery, Status: Pen, Time: 10:15 AM [facility] Work Phone: Start: 12-24-2022 NPV, Provider: Jeison Clancy, Status: Pen, Time: 9:30 AM NPV, Provider: Jeison Clancy, Status: Pen, Time: 9:[address] [facility] Work Phone: Start: 12-24-2022 Patient encounter procedure [facility] Urology [place] Start: 12-23-2022 NPV, Provider: Jeison Clancy, Status: Pen, Time: 2:30 PM NPV, Provider: Jeison Clancy, Status: Pen, Time: 2:30 PM [facility] Work Phone: Start: 12-23-2022 FUV, Provider: Rayne Lin, Status: Pen, Time: 11:15 AM FUV, Provider: Rayne Lin, Status: Pen, Time: 11:15 AM [id number] Work Phone: Start: 12-23-2022 FUV, Provider: Reanna Kemp, Status: Pen, Time: 10:00 AM FUV, Provider: Reanna Kemp, Status: Pen, Time: 10:[address] [facility] Work Phone: Start: 12-23-2022 Patient encounter procedure [facility] Cardiology [facility] Start: 12-17-2022 Patient encounter procedure [facility] Rehab Start: 12-17-2022 PTEVALADUL, Provider: Trice Tejada, Status: Pen, Time: 9:30 AM PTEVALADUL, Provider: Trice Tejada, Status: Pen, Time: 9:30 AM [facility] Work Phone: Start: 12-15-2022 FUV, Provider: Jeanie Ayala, Status: Pen, Time: 10:30 AM FUV, Provider: Jeanie Ayala, Status: Pen, Time: 10:30 AM [facility] Medicine Work Phone: Start: 12-15-2022 Patient encounter procedure [facility] Start: 12-02-2022 Patient encounter procedure [facility] Rehab Start: 12-02-2022 PTEVALADUL, Provider: Trice Tejada, Status: Pen, Time: 9:30 AM PTEVALADUL, Provider: Trice Tejada, Status: Pen, Time: 9:30 AM [facility] Work Phone: Start: 11-12-2022 HOLTER 48, Provider: CONFUCIANIST DIAGNOSTIC THERAPIST,SMCMONITOR, Status: Pen, Time: 2:00 PM HOLTER 48, Provider: CONFUCIANIST DIAGNOSTIC THERAPIST,[facility], Status: Pen, Time: 2:00 PM [facility]-Elpknwbf[facility]gy [facility] [address] Work Phone: Start: 11-12-2022 ECHO, Provider: CARRIE GOETZI ECHO 1,SMCECHO1, Status: Pen, Time: 1:00 PM ECHO, Provider: CARRIE GOETZI ECHO 1,SMCECHO1, Status: Pen, Time: 1:00 PM IB-[id number]-Npg land [address] Work Phone: Start: 11-10-2022 FUV, Provider: Reanna Kemp, Status: Pen, Time: 2:00 PM FUV, Provider: Reanna Kemp, Status: Pen, Time: 2:00 PM [facility] 300 Work Phone: Start: 11-10-2022 FUV, Provider: Reanna Kemp, Status: Pen, Time: 10:00 AM FUV, Provider: Reanna Kemp, Status: Pen, Time: 10:00 AM [facility] Work Phone: Start: 11-05-2022 NPV, Provider: Jeffy Ortiz, Status: Pen, Time: 11:15 AM NPV, Provider: Jeffy Ortiz, Status: Pen, Time: 11:15 AM [facility] Work Phone: Start: 09-16-2022 FUV, Provider: Reanna Kemp, Status: Pen, Time: 10:30 AM FUV, Provider: Reanna Kemp, Status: Pen, Time: 10:30 AM [facility] 300 Work Phone: Start: 09-16-2022 Patient encounter procedure [facility] Orthopedics [place] Start: 09-15-2022 FUV, Provider: Jeanie Ayala, Status: Pen, Time: 9:45 AM FUV, Provider: Jeanie Ayala, Status: Pen, Time: 9:45 AM [facility] Work Phone: Start: 09-15-2022 Patient encounter procedure [facility] Medicine [place] Start: 08-19-2022 FUV, Provider: Reanna Kemp, Status: Pen, Time: 10:30 AM FUV, Provider: Reanna Kemp, Status: Pen, Time: 10:30 AM [facility] 300 Work Phone: Start: 08-18-2022 FUV, Provider: Jeanie Ayala, Status: Pen, Time: 9:45 AM FUV, Provider: Jeanie Ayala, Status: Pen, Time: 9:45 AM [facility] Work Phone: Start: 08-05-2022 NEWPROB, Provider: Matthew Pérez, Status: Pen, Time: 1:00 PM NEWPROB, Provider: Matthew Pérez, Status: Pen, Time: 1:00 PM [facility] Work Phone: Start: 08-05-2022 Diabetes mellitus screening Diabetes Screening [facility] Start: 08-04-2022 FUV, Provider: Jeanie Ayala, Status: Pen, Time: 1:30 PM FUV, Provider: Jeanie Ayala, Status: Pen, Time: 1:30 PM [facility] Work Phone: Start: 07-28-2022 Patient encounter procedure [facility] Med Onc Start: 07-21-2022 EEG, Provider: NEURO EEG [id number] EQUIPMENT,[id number], Status: Pen, Time: 1:00 PM EEG, Provider: NEURO EEG SMC02 EQUIPMENT,[id number], Status: Pen, Time: 1:00 PM [facility] Work Phone: Start: 07-21-2022 FUV, Provider: Jeanie Ayala, Status: Pen, Time: 9:15 AM FUV, Provider: Jeanie Ayala, Status: Pen, Time: 9:15 AM [facility] Work Phone: Start: 06-18-2022 Influenza vaccination [facility] Start: 06-02-2022 FUV, Provider: Jeanie Ayala, Status: Pen, Time: 10:30 AM FUV, Provider: Jeanie Ayala, Status: Pen, Time: 10:30 AM [facility] Work Phone: Start: 06-02-2022 Patient encounter procedure [facility] Start: 05-10-2022 End: 05-12-2022 Iohexol (Omnipaque 350-Radiology Contrast) . ; (OMNIPAQUE)DOSE = 102 mL IntraVenous Push OnceCa.5 mL/Kg/DOSE x 68 Kg = 102 mL/Dose (Daily Total is 102 mL) Start: 09-May-2022 End: 11-May-2022 Ordered: 09-May-2022 Dinesh Chun Intent [facility] Start: 04-06-2022 FUV, Provider: Jeanie Ayala, Status: Pen, Time: 12:30 PM FUV, Provider: Jeanie Ayala, Status: Pen, Time: 12:[address] [facility] Internal [facility] Work Phone: Start: 03-04-2022 FUV, Provider: Jeanie Ayala, Status: Pen, Time: 2:00 PM FUV, Provider: Jeanie Ayala, Status: Pen, Time: 2:00 PM [facility] Work Phone: Start: 03-04-2022 Patient encounter procedure [facility] Start: 02-04-2022 FUV, Provider: Jeanie Ayala, Status: Pen, Time: 11:30 AM FUV, Provider: Jeanie Ayala, Status: Pen, Time: 11:30 AM [facility] Work Phone: Start: 01-30-2022 Patient encounter procedure [facility] Start: 01-27-2022 Patient encounter procedure [facility] Med Onc Start: 01-22-2022 Past history of procedure History of esophagogastroduodenoscopy (EGD) Date: 22-Jan-2022 [facility] Start: 01-22-2022 EGD, Provider: Jeanie Ayala, Status: Pen, Time: 11:00 AM EGD, Provider: Jeanie Ayala, Status: Pen, Time: 11:00 AM [facility] Medicine Work Phone: Start: 01-07-2022 FUV, Provider: Jeanie Ayala, Status: Pen, Time: 11:45 AM FUV, Provider: Jeanie Ayala, Status: Pen, Time: 11:45 AM [facility] Work Phone: Start: 12-31-2021 FUV, Provider: Jeanie Ayala, Status: Pen, Time: 3:30 PM FUV, Provider: Jeanie Ayala, Status: Pen, Time: 3:[address] [facility] Work Phone: Start: 12-31-2021 Patient encounter procedure [facility] Start: 12-26-2021 Patient encounter procedure [facility] Diagnostic Start: 12-17-2021 FUV, Provider: Jeanie Ayala, Status: Pen, Time: 1:45 PM FUV, Provider: Jeanie Ayala, Status: Pen, Time: 1:45 PM [facility] Work Phone: Start: 12-17-2021 Patient encounter procedure [facility] Diagnostic Start: 12-15-2021 Patient encounter procedure Outpatient [facility] Diagnostic [address] [address] Start: 15-Dec-2021 9:00 Jeanie Ayala M Intent [facility] Diagnostic Start: 12-08-2021 FUV, Provider: Jeanie Ayala, Status: Pen, Time: 11:30 AM FUV, Provider: Jeanie Ayala, Status: Pen, Time: 11:30 AM [facility] Work Phone: Start: 12-08-2021 Patient encounter procedure [facility] Start: 12-01-2021 Depression screening using PHQ-9 (Patient Health Questionnaire 9) score Depression Screening/Follow-Up (PHQ-2/9) [facility] Start: 09-30-2021 Depression Remission Assessment (PHQ9) Depression Remission Assessment (PHQ9) [facility] Start: 08-12-2021 FUV, Provider: Jeanie Ayala, Status: Pen, Time: 10:15 AM FUV, Provider: Jeanie Ayala, Status: Pen, Time: 10:15 AM [facility] Work Phone: Start: 08-12-2021 Patient encounter procedure [facility] Start: 07-24-2021 COLON, Provider: Jeanie Ayala, Status: Pen, Time: 10:00 AM COLON, Provider: Jeanie Ayala, Status: Pen, Time: 10:[address] [facility] Internal Medicine Work Phone: Start: 07-24-2021 Patient encounter procedure [facility] [employer] Start: 07-17-2021 FUV, Provider: Sammie Iglesias, Status: Pen, Time: 10:45 AM FUV, Provider: Sammie Iglesias, Status: Pen, Time: 10:45 AM [address] [place] [address] [employer] Work Phone: Start: 07-14-2021 FUV, Provider: Matthew Pérez, Status: Pen, Time: 1:15 PM FUV, Provider: Matthew Pérez, Status: Pen, Time: 1:15 PM [place] [address] [employer] Work Phone: Start: 07-14-2021 [facility] Start: 06-24-2021 FUV, Provider: Jeanie Ayala, Status: Pen, Time: 11:30 AM FUV, Provider: Jeanie Ayala, Status: Pen, Time: 11:[address] [facility] Work Phone: Start: 06-24-2021 Patient encounter procedure [facility] Start: 06-18-2021 Influenza vaccination Sequential Influenza Vaccine (#1) [facility] Start: 01-04-2021 Screening for malignant neoplasm of cervix [facility] Start: 01-04-2021 Tetanus vaccination TETANUS EVERY 10 YR [facility] Start: 12-18-2020 End: 12-18-2020 Office Visit 12/18/2020 Office Visit Otolaryngology Julian Galeana MD [facility] Tello [address] [place] [address] [phone] [facility] Start: 12-10-2020 End: 12-10-2020 Office Visit 12/10/2020 Office Visit Nedra Lima, STEM PROCESSING MACHINE OPERATOR [address] [place] [address] [facility] Start: 06-18-2020 Influenza vaccination given Sequential Influenza Vaccine (#1) [facility] Start: 06-08-2019 End: 06-08-2019 Office Visit 06/08/2019 Office Visit Nedra Lima CNP [address] [facility] [place] [address] [phone] [facility] Start: 03-23-2019 End: 03-23-2019 Office Visit 03/23/2019 Office Visit Nedra Lima CNP [address] [facility] [place] [address] [facility] Start: 03-08-2019 End: 03-08-2019 Office Visit 03/08/2019 Office Visit Nedra Lima CNP [address] [place] [address] [phone] [facility] Start: 03-01-2019 End: 03-01-2019 Office Visit 03/01/2019 Office Visit Nedra Lima, STEM PROCESSING MACHINE OPERATOR [address] [place] [address] [phone] [facility] Start: 01-03-2019 End: 01-03-2019 Appointment 01/03/2019 Appointment Cardiology Zeke Onofre MD [address] [place] [address] [phone] [facility] Start: 12-26-2018 End: 12-26-2018 Appointment 12/26/2018 Appointment Zeke Morris MD [address] [place] [address] [phone] [facility] Start: 12-23-2018 End: 12-23-2018 Office Visit 12/23/2018 Office Visit Prim xavier Dimas Valentino MD [address] [place] [address] [phone] [facility] Start: 12-08-2018 End: 12-08-2018 Appointment 12/08/2018 Appointment Cardiology Zeke Onofre MD [address] [place] [address] [phone] [facility] Start: 12-08-2018 End: 12-08-2018 Appointment 12/08/2018 Appointment Cardiology Zeke Onofre MD [address] [place] [address] [phone] [facility] Start: 11-11-2018 End: 11-11-2018 Ambulatory 11/11/2018 Office Visit Nedra Lima CNP [address] [place] [address] [phone] [facility] Start: 11-01-2018 End: 11-01-2018 Ambulatory 11/01/2018 Office Visit Nedra Vines CNP [address] [place] [address] [phone] Zeke Onofre MD [address] [place] [address] [phone] [facility] Start: 2018 Screening for malignant neoplasm of colon COLORECTAL CANCER SCREENING [facility] Start: 08-25-2018 End: 08-25-2018 Ambulatory 08/25/2018 Office Visit Prim Dimas Winters MD [address] [place] [address] [phone] [facility] Start: 06-18-2018 Influenza vaccination SEQUENTIAL INFLUENZA VACCINE (#1) [facility] Start: 06-18-2018 Influenza vaccination given SEQUENTIAL INFLUENZA VACCINE (#1) [facility] Start: 06-16-2018 End: 06-16-2018 Ambulatory 06/16/2018 Office Visit Dimas Woods MD [address] [address] [phone] [facility] Start: 04-05-2018 End: 04-05-2018 Ambulatory [facility] Start: 08-20-2017 Ambulatory 08/20/2017 Office Visit Dimas Woods MD [address] [address] [phone] [facility] Start: 08-10-2017 Ambulatory 08/10/2017 Office Visit Dimas Woods MD [address] [address] [phone] [facility] Start: 07-09-2017 Ambulatory 07/09/2017 Follow-Up General Surgery Williams Lobo MD [address] [place] [address] [phone] [facility] Start: 07-06-2017 Ambulatory 07/06/2017 Office Visit Dimas Woods MD [address] [address] [phone] [facility] Start: 06-18-2017 Influenza vaccination SEQUENTIAL INFLUENZA VACCINE (#1) [facility] Work Phone: Start: 2013 Lipid panel LIPID SCREENING [facility] Start: 2013 Screening for malignant neoplasm of breast [facility] Start: 2003 Screening for malignant neoplasm of cervix [facility] Start: 1994 Screening for malignant neoplasm of cervix [facility] Start: 1992 Hepatitis A Vaccines (1 of 2 - Risk 2-dose series) Hepatitis A Vaccines (1 of 2 - Risk 2-dose series) [facility] Start: 1992 Hepatitis B vaccination HEP B VACCINE (1 of 3 - 19+ 3-dose series) [facility] Start: 1992 Hepatitis B Vaccines (1 of 3 - 19+ 3-dose series) Hepatitis B Vaccines (1 of 3 - 19+ 3-dose series) [facility] Start: 1992 Pneumococcal vaccination Pneumococcal Vaccine (1 of 2 - PCV) [facility] Start: 1992 Pneumococcal Vaccine: 50+ Years (1 of 2 - PCV) Pneumococcal Vaccine: 50+ Years (1 of 2 - PCV) [facility] Start: 1991 COVID-19 Vaccine (#1) COVID-19 Vaccine (#1) [facility] Start: 1991 Hepatitis C antibody, confirmatory test Hepatitis C Screening [facility] Start: 1991 Hepatitis C screening Hepatitis C Screening [facility] Start: 1989 COVID-19 Vaccine (1 of 2) COVID-19 Vaccine (1 of 2) [facility] Start: 1988 HIV screening [facility] Start: 1985 COVID-19 Vaccine (1) COVID-19 Vaccine (1) [facility] Start: 1985 Depression Monitoring Depression Monitoring [facility] Start: 1985 Depression Screening Depression Screening [facility] Start: 1985 Depresssion Monitoring Depresssion Monitoring [facility] Start: 1983 Microalbumin measurement, urine, quantitative Urine Microalbumin [facility] Start: 1983 Urine screening for protein Urine Microalbumin [facility] Start: 1983 Urine, microalbumin URINE MICROALBUMIN [facility] Work Phone: Start: 1979 Pneumococcal Vaccine: Ped or At-Risk (1 - PCV) Pneumococcal Vaccine: Ped or At-Risk (1 - PCV) [facility] Start: 1979 Pneumococcal Vaccine: Ped or At-Risk (1 of 4 - PCV13) Pneumococcal Vaccine: Ped or At-Risk (1 of 4 - PCV13) [facility] Start: 1979 Pneumococcal Vaccine: Pediatrics (0 to 5 Years) and At-Risk Patients (6 to 64 Years) (1 - PCV) Pneumococcal Vaccine: Pediatrics (0 to 5 Years) and At-Risk Patients (6 to 64 Years) (1 - PCV) [facility] Start: 1979 Pneumococcal Vaccine: Pediatrics (0 to 5 Years) and At-Risk Patients (6 to 64 Years) (1 of 2 - PCV) Pneumococcal Vaccine: Pediatrics (0 to 5 Years) and At-Risk Patients (6 to 64 Years) (1 of 2 - PCV) [facility] Start: 1976 History and physical examination, annual for health maintenance Wellness Visit [facility] Start: 1974 Hepatitis A Vaccines (1 of 2 - Risk 2-dose series) Hepatitis A Vaccines (1 of 2 - Risk 2-dose series) [facility] Start: 1974 MMR Vaccines (1 of 1 - Standard series) MMR Vaccines (1 of 1 - Standard series) [facility] Start: 03-12-1974 COVID-19 Vaccine (#1) COVID-19 Vaccine (#1) [facility] Start: 1973 Creatinine measurement Creatinine Level [facility] Start: 1973 Echocardiography Echocardiogram [facility] Start: 1973 Hepatitis B Vaccines (1 of 3 - 3-dose series) Hepatitis B Vaccines (1 of 3 - 3-dose series) [facility] Start: 1973 Hepatitis C screening HEPATITIS C VIRUS SCREENING [facility] Start: 1973 HIV screening HIV Screening [facility] Start: 1973 Potassium measurement Potassium Level [facility] Start: 1973 Protein mass conc Mammogram [facility] Start: 1973 Screening for malignant neoplasm of cervix PAP SMEAR [facility] Work Phone: Start: 1973 Screening for malignant neoplasm of colon [facility] Start: 1973 Screening mammography Mammogram [facility] Start: 1973 Tetanus vaccination TETANUS EVERY 10 YR [facility] Work Phone: Start: 1973 Yearly Adult Physical Yearly Adult Physical [facility] 12 lead ECG ECG 12 Lead Rout ine Chest pain at rest Ordered: 11/22/2018 [facility] Comment on above: Ordered: 11/22/2018 12 lead ECG ECG 12 Lead ECG Routine 12/31/2023 9:34 PM EDT [facility] Work Phone: End: 06-16-2019 Bacteria identified Aer cx Nom (Unsp spec) Urine Aerobic Culture Routine History of UTI 1 Occurrences starting 06/16/2018 until 06/16/2019 [facility] Comment on above: 1 Occurrences starting 06/16/2018 until 06/16/2019 End: 08-13-2023 Bacteria identified in Urine by Culture [facility] Work Phone: Comment on above: Once (Lab) for 1 Occurrences starting until 08/13/2023 End: 04-27-2024 DBT Breast - bilateral [facility] Work Phone: Comment on above: Once for 1 Occurrences starting 04/27/20 24 until 04/27/2024 End: 08-13-2023 ECG 12 lead ECG 12 lead ECG STAT Once fo r 1 Occurrences starting 08/13/2023 until 08/13/2023 [facility] Work Phone: Comment on above: Once for 1 Occurrences starting 08/13/20 23 until 08/13/2023 End: 01-21-2020 Echocardiography Echocardiogram complete Rout ine Chest pain at rest 1 Occurrences starting 11/22/2018 until 01/21/2020 [facility] Comment on above: 1 Occurrences starting 11/22/2018 until 01/21/2020 GERD (gastroesophageal reflux disease) GERD (gastroesophageal reflux disease) [facility] H/O: blood transfusion History of blood transfusion [facility] History of reduction of breast History of bilateral breast reduction surgery [facility] End: 10-05-2023 Holter monitor study [facility] Work Phone: Comment on above: Once for 1 Occurrences starting 10/05/20 until 10/05/2023 Hypertension Hypertension [facility] Insertion intrauterine device iud Insertion Device Uterus Pelvic pain Irregular bleeding Preop testing [facility] Work Phone: Laps abd prtm&omentu m dx w/wo spec br/wa spx Exploration Laparoscopy Pelvic pain Irregular bleeding Preop testing [facility] Work Phone: End: 03-14-2025 [facility]am [facility] Work Phone: Comment on above: Once (Lab) for 1 Occurrences starting until 03/14/2025 End: 11-22-2019 Lipid 1996 panel Lipid panel Routine Chest pa in at rest 1 Occurrences starting 11/22/2018 until 11/22/2019 [facility] Comment on above: 1 Occurrences starting 11/22/2018 until 11/22/2019 Patient Education [facility] Work Phone: Patient referral [facility] Work Phone: End: 03-14-2025 Primidone and Metabolite [employer] Comment on above: Once (Lab) for 1 Occurrences starting until 03/14/2025 Procedure on tissue specimen [facility] Work Phone: Comment on above: Release Upon Ordering for 1 Occurrences starting 06/05/2024, 1 completed End: 11-22-2019 Radionuclide myocardial perfusion study NM Myocardial Perfusion Multiple SPECT Routine Chest pain at rest 1 Occurrences starting 11/22/2018 until 11/22/2019 [facility] Comment on above: 1 Occurrences starting 11/22/2018 until 11/22/2019 End: 03-14-2025 Valproic acid level, total and free [employer] Comment on above: Once (Lab) for 1 Occurrences starting until 03/14/2025 End: 09-01-2023 XR Chest 2 Views [facility] Work Phone: Comment on above: Once for 1 Occurrences starting 09/01/20 23 until 09/01/2023 NEGATED: Highlighted row has been ruled out! Planned Goals not documented [facility] Work Phone: Immunizations Immunization Date Immunization Notes Care Provider Amadou lópez 09-16-2023 tetanus toxoid, reduced diphtheria toxoid, and acellular pertussis vaccine, adsorbed Dimas Lin MD Work Phone: [facility] Work Phone: 03-05-2020 tetanus toxoid, reduced diphtheria toxoid, and acellular pertussis vaccine, adsorbed Jeanie Puma Tavalljayleene Work Phone: [facility] Work Phone: 06-19-2019 tetanus toxoid, reduced diphtheria toxoid, and acellular pertussis vaccine, adsorbed Jeanie M Tavallaee Work Phone: [facility] [address] Work Phone: 11-22-2018 influenza virus vaccine, unspecified formulation Raúl Hudson MD Work Phone: [facility] Payers Date Payer Category Payer Self-pay 03-18-2021 Medicaid [id number] .[id number] 06-18-2019 Medicaid [id number] 08-18-2015 Unknown [employer] xxxxxxxxxxxx 2015-Present xxxxxxxxxxxx [id number] 08-18-2015 Unknown 10-18-2014 Unknown [id number] 2.16.840.1.670278.3.249.13 1973 Unknown [id number] 2.16.840.1.269747.3.579.2.902 1973 Unknown [id number] 2.16.840.1.305103.3.579.2.902 1973 Unknown [id number] 2.16.840.1.330716.3.579.2.106 9 1973 Unknown [id number] 2.16.840.1.720027.3.579.2.106 9 1973 Unknown [id number] 2.16.840.1.863567.3.579.2.106 9 1973 Unknown [id number] 2.16.840.1.959736.3.579.2.106 9 1973 Unknown [id number] 2.16.840.1.426743.3.579.2.106 9 1973 Unknown [id number] 2.16.840.1.398050.3.579.2.106 9 1973 Unknown [id number] 2.16.840.1.721848.3.579.2.106 9 1973 Unknown [id number] 2.16.840.1.424669.3.579.2.106 9 1973 Unknown [id number] 2.16.840.1.298306.3.579.2.106 9 1973 Unknown [id number] 2.16.840.1.745267.3.579.2.106 9 1973 Unknown [id number] 2.16.840.1.114283.3.579.2.106 9 1973 Unknown [id number] 2.16.840.1.069813.3.579.2.106 9 1973 Unknown [id number] 2.16.840.1.234209.3.579.2.106 9 1973 Unknown [id number] 2.16.840.1.542704.3.579.2.106 9 1973 Unknown [id number] 2.16.840.1.706109.3.579.2.106 9 1973 Unknown [id number] 2.16.840.1.670653.3.579.2.106 9 1973 Unknown [id number] 2.16.840.1.301274.3.579.2.106 9 1973 Unknown [id number] 2.16.840.1.872755.3.579.2.106 9 1973 Unknown [id number] 2.16.840.1.823776.3.579.2.106 9 1973 Unknown [id number] 2.16.840.1.448033.3.579.2.106 9 1973 Unknown [id number] 2.16.840.1.120551.3.579.2.106 9 1973 Unknown [id number] 2.16.840.1.722630.3.579.2.106 9 1973 Unknown [id number] 2.16.840.1.582206.3.579.2.106 9 1973 Unknown [id number] 2.16.840.1.133050.3.579.2.106 9 1973 Unknown [id number] 2.16.840.1.974991.3.579.2.106 9 1973 Unknown [id number] 2.16.840.1.235544.3.579.2.106 9 1973 Unknown [id number] 2.16.840.1.199809.3.579.2.106 9 1973 Unknown [id number] 2.16.840.1.589232.3.579.2.106 9 1973 Unknown [id number] 2.16.840.1.761125.3.579.2.106 9 1973 Unknown [id number] 2.16.840.1.589196.3.579.2.106 9 1973 Unknown [id number] 2.16.840.1.474014.3.579.2.106 9 1973 Unknown [id number] 2.16.840.1.306012.3.579.2.106 9 1973 Unknown [id number] 2.16.840.1.448507.3.579.2.106 9 1973 Unknown [id number] 2.16.840.1.156503.3.579.2.106 9 1973 Unknown [id number] 2.16.840.1.073620.3.579.2.106 9 1973 Unknown [id number] 2.16.840.1.545810.3.579.2.106 9 1973 Unknown [id number] 2.16.840.1.862937.3.579.2.106 9 1973 Unknown [id number] 2.16.840.1.540386.3.579.2.106 9 1973 Unknown [id number] 2.16.840.1.757770.3.579.2.106 9 1973 Unknown [id number] 2.16.840.1.549528.3.579.2.106 9 1973 Unknown [id number] 2.16.840.1.107489.3.579.2.106 9 1973 Unknown [id number] 2.16.840.1.177122.3.579.2.106 9 1973 Unknown [id number] 2.16.840.1.545991.3.579.2.106 9 1973 Unknown [id number] 2.16.840.1.439981.3.579.2.106 9 1973 Unknown [id number] 2.16.840.1.748240.3.579.2.106 9 1973 Unknown [id number] 2.16.840.1.948893.3.579.2.106 9 1973 Unknown [id number] 2.16.840.1.318260.3.579.2.106 9 1973 Unknown [id number] 2.16.840.1.385079.3.579.2.106 9 1973 Unknown [id number] 2.16.840.1.298728.3.579.2.106 9 1973 Unknown [id number] 2.16.840.1.555753.3.579.2.106 9 1973 Unknown [id number] 2.16.840.1.307277.3.579.2.106 9 1973 Unknown [id number] 2.16.840.1.040255.3.579.2.106 9 1973 Unknown [id number] 2.16.840.1.970626.3.579.2.356 1973 Unknown [id number] 2.16.840.1.613299.3.579.2.356 1973 Unknown [id number] 2.16840.1.581207.3.579.2.356 1973 Unknown [id number] 2.840.1.615829.3.579.2. 1973 Unknown [id number] 2.840.1.736298.3.579.2. 1973 Unknown [id number] 2.840.1.024030.3.579.2. 1973 Unknown [id number] 2.840.1.506359.3.579.2.356 1973 Unknown [id number] 2.840.1.170178.3.579.2. 1973 Unknown [id number] 2.840.1.618325.3.579.2. 1973 Unknown [id number] 2.840.1.823093.3.579.2.356 1973 Unknown [id number] 2.840.1.909958.3.579.2.356 1973 Unknown [id number] .840.1.781562.3.579.2.356 1973 Unknown [id number] 2.840.1.890859.3.579.2. 1973 Unknown [id number] .840.1.404985.3.579.2.356 1973 Unknown [id number] .840.1.107405.3.579.2.356 1973 Unknown [id number] .840.1.177914.3.579.2.124 5 1973 Unknown [id number] 2.16840.1.853176.3.579.2.124 5 1973 Unknown [id number] 2.16840.1.897725.3.579.2.124 5 1973 Unknown [id number] 2.16.840.1.072971.3.579.2.903 1973 Unknown [id number] 2.16.840.1.301715.3.579.2.903 1973 Unknown [id number] 2.16.840.1.496719.3.579.2.903 1973 Unknown [id number] 2.16.840.1.895446.3.579.2.903 1973 Unknown [id number] 2.16.840.1.257855.3.579.2.903 1973 Unknown [id number] 2.16.840.1.191337.3.579.2.903 1973 Unknown [id number] 2.16.840.1.270105.3.579.2.3 1973 Unknown [id number] 2.16.840.1.665226.3.579.2.903 1973 Unknown [id number] 2.16.840.1.360554.3.579.2.124 3 1973 Unknown [id number] 2.16.840.1.853624.3.579.2.124 3 1973 Unknown [id number] 2.16.840.1.600608.3.579.2.124 3 1973 Unknown [id number] 2.16.840.1.970380.3.579.2.124 3 1973 Unknown [id number] 2.16.840.1.350202.3.579.2.124 3 1973 Unknown [id number] 2.16.840.1.495690.3.579.2.124 3 1973 Unknown [id number] 2.16.840.1.046855.3.579.2.124 3 1973 Unknown [id number] 2.16.840.1.756804.3.579.2.124 3 1973 Unknown [id number] 2.16.840.1.631547.3.579.2.124 3 1973 Unknown [id number] 2.16.840.1.696160.3.579.2.124 3 1973 Unknown [id number] 2.16.840.1.133845.3.579.2.124 3 1973 Unknown [id number] 2.16.840.1.440918.3.579.2.124 3 1973 Unknown [id number] 2.16.840.1.496257.3.579.2.124 3 1973 Unknown [id number] 2.16.840.1.471458.3.579.2.124 3 1973 Unknown [id number] 2.16.840.1.731663.3.579.2.124 3 1973 Unknown [id number] 2.16.840.1.373038.3.579.2.124 3 1973 Unknown [id number] 2.16.840.1.824010.3.579.2.124 3 1973 Unknown [id number] 2.16.840.1.890685.3.579.2.124 3 1973 Unknown [id number] 2.16.840.1.417040.3.579.2.983 1973 Unknown [id number] 2.16.840.1.637196.3.579.2.983 1973 Unknown [id number] 2.16.840.1.942830.3.579.2.983 1973 Unknown [id number] 1975 Unknown [id number] 4 1975 Unknown [id number] 4 Unknown [id number] Unknown [id number] Unknown [id number] Unknown [id number] Unknown [id number] Unknown [id number] Unknown [id number] Unknown [id number] [id number] Unknown [id number] Unknown [id number] Unknown [id number] Social History Date Type Detail Facility Start: 01-04-2018 End: 04-04-2025 Tobacco smoking status [facility] Never smoker [facility] Start: 1975 Sex Assigned At Not on file [facility] Work Phone: Start: 12-01-2020 End: 08-19-2023 Tobacco use and exposure Never used [facility] Start: 12-01-2020 End: 06-16-2024 Alcohol intake Current non-drinker of alcohol (finding) [facility] Start: 09-11-2022 End: 04-27-2024 Exposure to SARS-CoV-2 (event) Not sure [facility] Start: 01-12-2023 End: 02-19-2025 No alcohol use No alcohol use [address] Work Phone: Tobacco smoking consumption unknown [facility] Start: 09-21-2022 End: 09-21-2023 Tobacco smoking status NHIS Ex-smoker [facility] History of tobacco use Current smoker [facility] History of tobacco use Cigarette Smoker [facility] Start: 02-25-2023 End: 07-18-2024 Alcohol intake Lifetime non-drinker (finding) [facility] [place] Work Phone: Start: 01-12-2023 End: 02-19-2025 Tobacco use panel [facility] [place] Work Phone: Adult Depression Screening Assessment 15 [facility] Start: 06-23-2018 Gender identity Identifies as female gender (finding) [facility] Start: 06-23-2018 Sexual orientation Heterosexual (fin gray) [facility] Has the electric, gas, oil, or water company threatened to shut off services in your home in past 12Mo No [facility] How hard is it for you to pay for the very basics like food, housing, medical care, and heating Not very hard [facility] (I/We) worried whether (my/our) food would run out before (I/we) got money to buy more. Never true [facility] Start: 05-18-2022 Sex Female (finding) [facility] Start: 01-02-2023 End: 01-12-2023 Exposure to SARS-CoV-2 (event) Unable to assess [facility] [place] Start: 03-30-2020 Alcohol Alcohol [facility] Start: 1975 Sex Assigned At Female [facility] NEGATED: Highlighted row - - [address] Work Phone: Medical Equipment Procedure Code Equipment Code Equipment Origin al Text Equipment Identifier Dates [facility] [id number] Start: 10-14-2023 Goals Date Patient Goal Desired Activity /State Personal health goal Comment on above: Formatting of this n ote might be different from the original. Reema is working toward taking medications as directed. 03/27/19 currently rehab at [facility] Formatting of this n ote might be different from the original. Coping and Emotions: Manage stress Adapt to lifestyle changes Get support from family / friends 03/27/19 currently rehab at [facility] Formatting of this n ote might be different from the original. High blood pressure makes your heart work too hard. It can cause heart attack, stroke and kidney disease. 03/27/19 currently rehab at [facility] Comment on above: Reema is working t oward taking medications as directed. Reema is working t oward taking medications as directed. 03/27/19 currently rehab at [facility] Formatting of this n ote might be different from the original. Reema is working toward taking medications as directed. 03/27/19 currently rehab at [facility] Comment on above: Coping and Emotions: Manage stress Adapt to lifestyle changes Get support from family / friends Coping and Emotions: Manage stress Adapt to lifestyle changes Get support from family / friends 03/27/19 currently rehab at [facility] Formatting of this n ote might be different from the original. Coping and Emotions: Manage stress Adapt to lifestyle changes Get support from family / friends 03/27/19 currently rehab at [facility] Comment on above: High blood pressure makes your heart work too hard. It can cause heart attack, stroke and kidney disease. High blood pressure makes your heart work too hard. It can cause heart attack, stroke and kidney disease. 03/27/19 currently rehab at [facility] Formatting of this n ote might be different from the original. High blood pressure makes your heart work too hard. It can cause heart attack, stroke and kidney disease. 03/27/19 currently rehab at [facility] Functional Status Date Assessment Result Facility 12-08-2024 Patient Health Questionnaire 2 item (PHQ-2) [Reported] [facility] 11-17-2023 [facility] suicide severity rating scale screener - recent [C-SSRS] [facility] Work Phone: 11-08-2023 Patient Health Questionnaire 2 item (PHQ-2) [Reported] [facility] [place] Work Phone: 01-07-2022 PHQ-9 [id number] Sever e (20-27) [facility] Work Phone: NEGATED: Highlighted row Functional performance Functional status health issues are not documented Disease [address] Work Phone: Mental Status Date Assessment Result Facility 03-21-2025 Cognitive function Voice/Name [facility] Work Phone: NEGATED: Highlighted row Cognitive function [Interpretation] Cognitive status health issues are not documented Disease [address] Work Phone: Clinical Notes 11-20-2009 to 04-04-2025 Note Date & Type Note Facility 04-04-2025 Discharge summary Note Date/Time April 04, 2025 9:34pm [facility] Medical Records Department [address] [place] [address] Emergency Department Summary 04/04/25 MR#: [id number] Acct: [id number] Name: REEMA SHAH Rep #:[id number] : 1975 49 From: Lawson Higgins MD PCP: Dr. Sree Jamison MD Status:REG E R Location: ED HPI History of Present Illness Chief Complaint: Mental Health Detail of Chief Complaint: Behavioral issue versus psychiatric disorder Informant: patient, EMS and SNF Onset/Context/Timing Onset: Today (Patient states they have not paid attention to her after she vomited on herself.) Context: - (HPI narrative) Timing: Intermittent and Waxes and wanes Quality: Patient does not wish to return to nursing facility Location: [place] Current Severity: Mild Maximum Severity: Moderate Worsened by: Unknown Relieved by: Nothing Associated Symptoms Associated Symptoms: Patient with little eye contact. And has tremor. She states that she does Narrative Narrative: patient is a 49-year-old woman. Patient presents from residential by ambulance for psychiatric eval. Reportedly patient vomit on herself to get attention per nursing staff at facility. Patient states nursing staff did not pay attention to her after she had vomited on herself. Patient states she does not want to go back. Patient states she is upset and angry. Patient has history of hyperlipidemia, hypertension, gait abnormality, epilepsy,monoclonas jerks and long-term use of high-risk medication. Patient's history is very confusing. Nursing staff is uncertain why she is here. Charge nurse contacted and apparently she demanded to be evaluated and hesuggested that she have a psychiatric eval. Prior similar symptoms: Yes (Per the [place] social economist Lori who was asked tosee her to help determi) Recent Illness/Hospitalization: No PFSH PFSH Medical History Borderline personality disorder Long-term use of high-risk medication Systolic heart failure Major depressive disorder Tremor History of IA (myocardial infarction) History of TIA (transient ischemic attack) MELQUIADES (obstructive sleep apnea) Separation of muscle (nontraumatic), unspecified site Nonrheumatic mitral (valve) prolapse Hypercholesteremia Fatty liver Edema Diaphragmatic hernia Hirsutism Fracture of nasal bone Insomnia History of UTI Obesity Psoriasis GERD (gastroesophageal reflux disease) CKD (chronic kidney disease) Epileptic seizure, generalized Hypokalemia Hypothyroidism [place] Medications ?Medication ?Instructions ?Recorded ?Last Taken ?Type albuterol sulfate 90 mcg/actuation 1 - 2 puff inhalati on Q6H PRN PRN 03/05/20 Unknown History aerosol inhaler Sob &/Or Wheezing acetaminophen 325 mg capsule 650 mg PO Q4H PRN fever o r pain 06/05/21 Unknown History (Tylenol) artifi.tears(hypromellose)(PF) 0.3 2 drp ophthalmic (e ye) .Q1HR PRN 06/05/21 Unknown History % eye drops dry eye(s) atorvastatin 20 mg tablet 20 mg PO QHS 06/05/21 Unknow n History buspirone 10 mg tablet 10 mg PO TID 06/05/21 Unknow n History levothyroxine 25 mcg capsule 25 mcg PO DAILY 06/05/21 Unknown History loratadine 10 mg capsule 10 mg PO QHS 06/05/21 Unknow n History melatonin 5 mg capsule 10 mg PO QHS PRN insomnia Unknown History potassium chloride 10 mEq 20 meq PO BID 08/26/21 Unkno wn History capsule,extended release calcium carbonate (Gaby-Gest 200 mg PO DAILY 12/23/21 U nknown History Antacid) cyanocobalamin (vitamin B-12) 1,000 mcg PO DAILY 12/23 Unknown History 1,000 mcg tablet guaifenesin 400 mg tablet 400 mg PO Q6H PRN cough 06/08 Unknown History menthol 4 % topical gel (Biofreeze 1 applic topical DA ALBER PRN pain 12/23/21 Unknown History (menthol)) levetiracetam 500 mg tablet 500 mg PO BID #60 tabs Unknown Rx (Keppra) calcium 600 mg (as 1 tab PO BID 09/26/24 Unknow n History carbonate)-vitamin D3 10 mcg (400 unit) tablet desvenlafaxine succinate 50 mg 100 mg PO DAILY 4 Unknown History tablet,extended release 24 hr famotidine 20 mg tablet 20 mg PO BID 09/26/24 Unknow n History lidocaine 5 % topical patch 1 patch topical DAILY 09/17 Unknown History lisinopril 20 mg tablet 20 mg PO DAILY 09/26/24 Unkn own History magnesium oxide 400 mg (241.3 mg 400 mg PO DAILY 09/26 Unknown History magnesium) tablet metoprolol tartrate 25 mg tablet 25 mg PO BID 09/26/24 Unknown History ondansetron 4 mg disintegrating 4 mg PO Q6H PRN nausea and 09/26/24 Unknown Rx tablet vomiting #20 tabs primidone 50 mg tablet 200 mg PO BID 09/26/24 Unkno wn History lorazepam 1 mg tablet 2 mg PO Q12H 10/02/24 Unknow n History amlodipine 5 mg tablet 5 mg PO BID 11/04/24 Unknown History allopurinol 100 mg tablet 100 mg PO DAILY 03/21/25 Unk nown History bisacodyl 10 mg rectal suppository 10 mg WV DAILY PRN constipation 03/21/25 Unknown History cholecalciferol (vitamin D3) 50 2,000 unit PO DAILY Unknown History mcg (2,000 unit) capsule clonidine HCl 0.1 mg tablet 0.1 mg PO TID 03/21/25 Unk nown History divalproex 250 mg tablet,extended 250 mg PO BID Unknown History release 24 hr magnesium hydroxide 400 mg/5 mL 30 ml PO DAILY PRN con stipation 03/21/25 Unknown History oral suspension sennosides 8.6 mg tablet (senna) 8.6 mg PO DAILY 03/21 Unknown History Allergy/AdvReac Type Severity Reaction Status Date / Time phenytoin Allergy Mild Other Verified 04/04/25 15:44 gabapentin (From Neurontin) Allergy Unknown Unknown Verified 04/04/25 15:44 hydrocodone Allergy Unknown Unknown Verified 04/04/25 15:44 acetaminophen (From Vicodin) Allergy Rash Verified 04/04/25 15:44 erythromycin base Allergy Rash Verified 04/04/25 15:44 (Erythromycin Base) hydrocodone bitartrate (From Allergy Rash Verified 04/04/25 15:44 Vicodin) hydromorphone (From Dilaudid) Allergy Rash Verified 04/04/25 15:44 Penicillins Allergy Rash Verified 04/04/25 15:44 promethazine HCl (From Allergy Vomiting Verified 04/04/25 15:44 Phenergan) tramadol Allergy Rash Verified 04/04/25 15:44 codeine AdvReac Vomiting Verified 04/04/25 15:44 morphine AdvReac Vomiting Verified 04/04/25 15:44 ondansetron HCl (From Zofran) AdvReac Vomiting Verified 04/04/25 15:44 Social History housing: residential Smoking Status: Never smoker Electronic Cigarette Use: not used second hand exposure: No alcohol intake: never substance use type: does not use ROS ROS ED Constitutional Constitutional ED: Denies chills, fever(s), subjective, sweats or weight loss Eyes Eyes: Denies blurry vision or change in vision ENT ENT ED: Denies ear pain or rhinorrhea Cardiovascular Cardiovascular: Denies chest pain or palpitations Respiratory/Chest Respiratory/Chest: Denies cough, dyspnea or dyspnea on exertion Gastrointestinal Gastrointestinal: Reports nausea, vomiting and other Details: No hematemesis or coffee-ground emesis. ; Denies abdominal pain, constipation, diarrhea or melena Genitourinary Genitourinary ED: Denies dysuria, hematuria or urinary frequency Musculoskeletal Musculoskeletal: Denies arthralgias or myalgias Integumentary Denies rash Neurologic Neurologic: Denies headache(s), paresthesias or weakness Psychiatric Psychiatric: Reports depression and other Details: Patient is angry. She is somewhat manipulative. Hematologic/Lymphatic Hematologic/Lymphatic: Reports systems reviewed and no addt'l complaints, exceptas documented EXAM Physical Exam Const Vital Signs: 04/04/25 15:40 04/04/25 17:40 04/04/25 19:00 Temperature 98.3 F 97.8 F Temperature Source Oral Oral Pulse Rate 80 83 97 Respiratory Rate 16 16 Blood Pressure 191/105 H 191/99 H 196/120 H Blood Pressure Mean 133 129 145 Pulse Ox 98 98 99 Oxygen Delivery Method Room Air Room Air 04/04/25 21:00 Temperature 97.8 F Temperature Source Oral Pulse Rate 97 Respiratory Rate 16 Blood Pressure 187/103 H Blood Pressure Mean 131 Pulse Ox 99 Oxygen Delivery Method Room Air Positive well nourished and well developed Constitutional Narrative: BMI is 33.1. Vital signs reveal elevated blood pressure. She does have historyof elevated blood pressure. General Appearance ED: well developed; Negative for pallor HEENT HEENT Narrative: Head is atraumatic and normocephalic. Ears normal. Nares patent. Teeth appearnormal. Posterior pharynx is unremarkable. Eyes PERRL and EOMs intact bilaterally General Eye ED: Negative for pale conjunctiva or scleral icterus Neck no lymphadenopathy, supple and no JVD Resp normal respiratory effort and clear to auscultation bilaterally Cardio regular rate, regular rhythm, S1 normal heart sound, S2 normal heart sound and no murmurs GI normal to inspection, nondistended, normoactive bowel sounds, non-tender, non-distended and no masses; Negative for hepatosplenomegaly Back/Spine no CVA tenderness Extremity normal to inspection General Extremety ED: Negative for edema or tenderness General Extremity: Negative for edema Neuro oriented x3, CN's II-XII intact bilaterally and no sensory deficits noted Sensorium / Orientation: alert Motor Exam: strength 5/5 throughout Psych Psych Narrative: Minimal eye contact. Patient becomes animated at times. Patient has tremor noted. She states this is not a tremor this is her seizure disorder. Attitude: agitated Skin no rashes or lesions noted, no wounds and skin turgor normal General Skin Exam: elasticity normal; Negative for jaundice or pallor MDM MDM MDM Narrative Medical decision making narrative: Case management was consulted. Blood work was obtained to assess for evidence of infection or electrolyte abnormality. Suspect this is behavioral. X-ray of the foot was obtained because she has a bruise and states she injured it. This was obtained to assess for fracture versus contusion. Lab Data Attestation: I reviewed the patient's lab results. Lab results narrative: CBC is unremarkable. BMP reveals an elevated BUN/creatinine of 27 and 1.5 with an estimated GFR 42. This is essentially her baseline BUN and creatinine. Labs: Laboratory Results - last 24 hr 04/04/25 19:26 WBC 9.6 RBC 5.35 Hgb 16.0 H Hct 46.2 MCV 86.4 MCH 29.9 MCHC 34.6 RDW Std Deviation 39.6 RDW Coeff of Jeremiah 12.8 Plt Count 159 MPV 10.7 Immature Gran % (Auto) 0.500 Neut % (Auto) 65.7 Lymph % (Auto) 22.8 [place] % (Auto) 10.3 H Eos % (Auto) 0.4 Baso % (Auto) 0.3 Absolute Neuts (auto) 6.3 Absolute Lymphs (auto) 2.18 Nucleated RBC % 0 Sodium 137 Potassium 5.2 H Chloride 99 Carbon Dioxide 24.2 Anion Gap 13 BUN 27 H Creatinine 1.50 H Estim Creat Clear Calc 39.97 L Est GFR (MDRD) Non-Af 42 L BUN/Creatinine Ratio 17.7 Glucose 94 Calcium 10.0 Radiography Chest X-Ray - ED: Read by ED Physician (Three-view x-ray of the foot was independent with viewed interpreted by me at 2002 as negative. There is no fracture, subluxation, dislocation, soft tissue swelling or foreign body.) Diagnostic Testing: Clinical Impression(s) from Imaging Studies Foot X-Ray 04/04/25 19:26 IMPRESSION: NO ACUTE FRACTURE OR DISLOCATION. Reading Location: [place] [address] Management Discussion w/another healthcare provider: facility worker/Case management (Lori did see patient. She informed this is her third residential and the year. Sheagrees patient does not need psychiatric placement. This is behavioral. Therefore will discharge back to the nursing facility.) Treatment and Re-Evaluation :: Patient has known hypertension. She is asymptomatic and there is no evidence ofendorgan dysfunction. This can be treated at the nursing facility. There is noneed for urgent or emergent lowering of her blood pressure. Suspect part of this is due to her agitated state. Discharge Plan Triage Chief Complaint: Mental Health ED Provider: Lawson Higgins Dx/Rx/DC Orders Clinical Impression: Manipulative behavior, Tremor, Hyperlipidemia, HTN (hypertension), Contusion offoot, left, History of seizure disorder Instructions: How to Control Your Temper, ED High Blood Pressure Hypertension Prescriptions: No Action atorvastatin 20 mg tablet 20 mg PO QHS buspirone 10 mg tablet 10 mg PO TID levothyroxine 25 mcg capsule 25 mcg PO DAILY loratadine 10 mg capsule 10 mg PO QHS melatonin 5 mg capsule 10 mg PO QHS PRN (Reason: insomnia) acetaminophen [Tylenol] 325 mg capsule 650 mg PO Q4H PRN (Reason: fever or pain) artifi.tears(hypromellose)(PF) 0.3 % drops 2 drp ophthalmic (eye) .Q1HR PRN (Reason: dry eye(s)) guaifenesin 400 mg tablet 400 mg PO Q6H PRN (Reason: cough) potassium chloride 10 mEq capsule, extended release 20 meq PO BID Biofreeze (menthol) 4 % gel 1 applic topical DAILY PRN (Reason: pain) calcium carbonate [Gaby-Gest Antacid] 200 mg calcium (500 mg) tablet,chewable 200 mg PO DAILY cyanocobalamin (vitamin B-12) 1,000 mcg tablet 1,000 mcg PO DAILY levetiracetam [Keppra] 500 mg tablet 500 mg PO BID Qty: 60 4RF albuterol sulfate 1 PUFF inhaler 1 - 2 puff inhalation Q6H PRN PRN (Reason: Sob &/Or Wheezing) lorazepam 1 mg tablet 2 mg PO Q12H Rx Instructions: 1mg at night and 2mg in the morning allopurinol 100 mg tablet 100 mg PO DAILY bisacodyl 10 mg suppository 10 mg WV DAILY PRN (Reason: constipation) clonidine HCl 0.1 mg tablet 0.1 mg PO TID magnesium hydroxide 400 mg/5 mL suspension 30 ml PO DAILY PRN (Reason: constipation) sennosides [senna] 8.6 mg tablet 8.6 mg PO DAILY cholecalciferol (vitamin D3) 50 mcg (2,000 unit) capsule 2,000 unit PO DAILY divalproex 250 mg tablet extended release 24 hr 250 mg PO BID famotidine 20 mg tablet 20 mg PO BID calcium carbonate-vitamin D3 600 mg-10 mcg (400 unit) tablet 1 tab PO BID lisinopril 20 mg tablet 20 mg PO DAILY magnesium oxide 400 mg (241.3 mg magnesium) tablet 400 mg PO DAILY lidocaine 5 % adhesive patch,medicated 1 patch topical DAILY metoprolol tartrate 25 mg tablet 25 mg PO BID desvenlafaxine succinate 50 mg tablet extended release 24 hr 100 mg PO DAILY primidone 50 mg tablet 200 mg PO BID ondansetron 4 mg tablet,disintegrating 4 mg PO Q6H PRN (Reason: nausea and vomiting) Qty: 20 0RF amlodipine 5 mg tablet 5 mg PO BID Primary Care Provider: Sree Jamison Referrals: Sree Jamison MD [Primary Care Provider] - 1-2 Weeks Activity Restrictions/Additional Instructions: Will need to have your blood pressure checked within a week. Print Language: Brazilian Disposition Disposition: Home, Self Care What to do if you have Problems For any increased pain, shortness of breath, bleeding, nausea or vomiting, chestpain, or any unexpected problems, contact your Primary Care Provider. Call [facility] ([phone]) or report to the closest Emergency Room. Call 911 if necessary. 04/04/252133 <Electronically signed by Lawson Higgins MD> Cosigner Signature (if applicable): CC: Dr. Sree Jamison MD ~ Signed [facility] Work Phone: [phone] Discharge summary [facility] Medical Records Department [address] [place] [address] Emergency Department Summary 04/04/25 MR#: [id number] Acct: [id number] Name: REEMA SHAH Rep #:[id number] : 1975 49 From: Lawson Higgins MD PCP: Dr. Sree Jamison MD Status:REG E R Location: ED HPI History of Present Illness Chief Complaint: Mental Health Detail of Chief Complaint: Behavioral issue versus psychiatric disorder Informant: patient, EMS and SNF Onset/Context/Timing Onset: Today (Patient states they have not paid attention to her after she vomited on herself.) Context: - (HPI narrative) Timing: Intermittent and Waxes and wanes Quality: Patient does not wish to return to nursing facility Location: [place] Current Severity: Mild Maximum Severity: Moderate Worsened by: Unknown Relieved by: Nothing Associated Symptoms Associated Symptoms: Patient with little eye contact. And has tremor. She states that she does Narrative Narrative: patient is a 49-year-old woman. Patient presents from residential by ambulance for psychiatric eval. Reportedly patient vomit on herself to get attention per nursing staff at facility. Patient states nursing staff did not pay attention to her after she had vomited on herself. Patient states she does not want to go back. Patient states she is upset and angry. Patient has history of hyperlipidemia, hypertension, gait abnormality, epilepsy,monoclonas jerks and long-term use of high-risk medication. Patient's history is very confusing. Nursing staff is uncertain why she is here. Charge nurse contacted and apparently she demanded to be evaluated and hesuggested that she have a psychiatric eval. Prior similar symptoms: Yes (Per the [place] social economist Lori who was asked tosee her to help determi) Recent Illness/Hospitalization: No PFSH PFSH Medical History Borderline personality disorder Long-term use of high-risk medication Systolic heart failure Major depressive disorder Tremor History of IA (myocardial infarction) History of TIA (transient ischemic attack) MELQUIADES (obstructive sleep apnea) Separation of muscle (nontraumatic), unspecified site Nonrheumatic mitral (valve) prolapse Hypercholesteremia Fatty liver Edema Diaphragmatic hernia Hirsutism Fracture of nasal bone Insomnia History of UTI Obesity Psoriasis GERD (gastroesophageal reflux disease) CKD (chronic kidney disease) Epileptic seizure, generalized Hypokalemia Hypothyroidism [place] Medications ?Medication ?Instructions ?Recorded ?Last Taken ?Type albuterol sulfate 90 mcg/actuation 1 - 2 puff inhalati on Q6H PRN PRN 03/05/20 Unknown History aerosol inhaler Sob &/Or Wheezing acetaminophen 325 mg capsule 650 mg PO Q4H PRN fever o r pain 06/05/21 Unknown History (Tylenol) artifi.tears(hypromellose)(PF) 0.3 2 drp ophthalmic (e ye) .Q1HR PRN 06/05/21 Unknown History % eye drops dry eye(s) atorvastatin 20 mg tablet 20 mg PO QHS 06/05/21 Unknow n History buspirone 10 mg tablet 10 mg PO TID 06/05/21 Unknow n History levothyroxine 25 mcg capsule 25 mcg PO DAILY 06/05/21 Unknown History loratadine 10 mg capsule 10 mg PO QHS 06/05/21 Unknow n History melatonin 5 mg capsule 10 mg PO QHS PRN insomnia Unknown History potassium chloride 10 mEq 20 meq PO BID 08/26/21 Unkno wn History capsule,extended release calcium carbonate (Gaby-Gest 200 mg PO DAILY 12/23/21 U nknown History Antacid) cyanocobalamin (vitamin B-12) 1,000 mcg PO DAILY 12/23 Unknown History 1,000 mcg tablet guaifenesin 400 mg tablet 400 mg PO Q6H PRN cough 06/08 Unknown History menthol 4 % topical gel (Biofreeze 1 applic topical DA ALBER PRN pain 12/23/21 Unknown History (menthol)) levetiracetam 500 mg tablet 500 mg PO BID #60 tabs Unknown Rx (Keppra) calcium 600 mg (as 1 tab PO BID 09/26/24 Unknow n History carbonate)-vitamin D3 10 mcg (400 unit) tablet desvenlafaxine succinate 50 mg 100 mg PO DAILY 4 Unknown History tablet,extended release 24 hr famotidine 20 mg tablet 20 mg PO BID 09/26/24 Unknow n History lidocaine 5 % topical patch 1 patch topical DAILY 09/17 Unknown History lisinopril 20 mg tablet 20 mg PO DAILY 09/26/24 Unkn own History magnesium oxide 400 mg (241.3 mg 400 mg PO DAILY 09/26 Unknown History magnesium) tablet metoprolol tartrate 25 mg tablet 25 mg PO BID 09/26/24 Unknown History ondansetron 4 mg disintegrating 4 mg PO Q6H PRN nausea and 09/26/24 Unknown Rx tablet vomiting #20 tabs primidone 50 mg tablet 200 mg PO BID 09/26/24 Unkno wn History lorazepam 1 mg tablet 2 mg PO Q12H 10/02/24 Unknow n History amlodipine 5 mg tablet 5 mg PO BID 11/04/24 Unknown History allopurinol 100 mg tablet 100 mg PO DAILY 03/21/25 Unk nown History bisacodyl 10 mg rectal suppository 10 mg WV DAILY PRN constipation 03/21/25 Unknown History cholecalciferol (vitamin D3) 50 2,000 unit PO DAILY Unknown History mcg (2,000 unit) capsule clonidine HCl 0.1 mg tablet 0.1 mg PO TID 03/21/25 Unk nown History divalproex 250 mg tablet,extended 250 mg PO BID Unknown History release 24 hr magnesium hydroxide 400 mg/5 mL 30 ml PO DAILY PRN con stipation 03/21/25 Unknown History oral suspension sennosides 8.6 mg tablet (senna) 8.6 mg PO DAILY 03/21 Unknown History Allergy/AdvReac Type Severity Reaction Status Date / Time phenytoin Allergy Mild Other Verified 04/04/25 15:44 gabapentin (From Neurontin) Allergy Unknown Unknown Verified 04/04/25 15:44 hydrocodone Allergy Unknown Unknown Verified 04/04/25 15:44 acetaminophen (From Vicodin) Allergy Rash Verified 04/04/25 15:44 erythromycin base Allergy Rash Verified 04/04/25 15:44 (Erythromycin Base) hydrocodone bitartrate (From Allergy Rash Verified 04/04/25 15:44 Vicodin) hydromorphone (From Dilaudid) Allergy Rash Verified 04/04/25 15:44 Penicillins Allergy Rash Verified 04/04/25 15:44 promethazine HCl (From Allergy Vomiting Verified 04/04/25 15:44 Phenergan) tramadol Allergy Rash Verified 04/04/25 15:44 codeine AdvReac Vomiting Verified 04/04/25 15:44 morphine AdvReac Vomiting Verified 04/04/25 15:44 ondansetron HCl (From Zofran) AdvReac Vomiting Verified 04/04/25 15:44 Social History housing: residential Smoking Status: Never smoker Electronic Cigarette Use: not used second hand exposure: No alcohol intake: never substance use type: does not use ROS ROS ED Constitutional Constitutional ED: Denies chills, fever(s), subjective, sweats or weight loss Eyes Eyes: Denies blurry vision or change in vision ENT ENT ED: Denies ear pain or rhinorrhea Cardiovascular Cardiovascular: Denies chest pain or palpitations Respiratory/Chest Respiratory/Chest: Denies cough, dyspnea or dyspnea on exertion Gastrointestinal Gastrointestinal: Reports nausea, vomiting and other Details: No hematemesis or coffee-ground emesis. ; Denies abdominal pain, constipation, diarrhea or melena Genitourinary Genitourinary ED: Denies dysuria, hematuria or urinary frequency Musculoskeletal Musculoskeletal: Denies arthralgias or myalgias Integumentary Denies rash Neurologic Neurologic: Denies headache(s), paresthesias or weakness Psychiatric Psychiatric: Reports depression and other Details: Patient is angry. She is somewhat manipulative. Hematologic/Lymphatic Hematologic/Lymphatic: Reports systems reviewed and no addt'l complaints, exceptas documented EXAM Physical Exam Const Vital Signs: 04/04/25 15:40 04/04/25 17:40 04/04/25 19:00 Temperature 98.3 F 97.8 F Temperature Source Oral Oral Pulse Rate 80 83 97 Respiratory Rate 16 16 Blood Pressure 191/105 H 191/99 H 196/120 H Blood Pressure Mean 133 129 145 Pulse Ox 98 98 99 Oxygen Delivery Method Room Air Room Air 04/04/25 21:00 Temperature 97.8 F Temperature Source Oral Pulse Rate 97 Respiratory Rate 16 Blood Pressure 187/103 H Blood Pressure Mean 131 Pulse Ox 99 Oxygen Delivery Method Room Air Positive well nourished and well developed Constitutional Narrative: BMI is 33.1. Vital signs reveal elevated blood pressure. She does have historyof elevated blood pressure. General Appearance ED: well developed; Negative for pallor HEENT HEENT Narrative: Head is atraumatic and normocephalic. Ears normal. Nares patent. Teeth appearnormal. Posterior pharynx is unremarkable. Eyes PERRL and EOMs intact bilaterally General Eye ED: Negative for pale conjunctiva or scleral icterus Neck no lymphadenopathy, supple and no JVD Resp normal respiratory effort and clear to auscultation bilaterally Cardio regular rate, regular rhythm, S1 normal heart sound, S2 normal heart sound and no murmurs GI normal to inspection, nondistended, normoactive bowel sounds, non-tender, non- distended and no masses; Negative for hepatosplenomegaly Back/Spine no CVA tenderness Extremity normal to inspection General Extremety ED: Negative for edema or tenderness General Extremity: Negative for edema Neuro oriented x3, CN's II-XII intact bilaterally and no sensory deficits noted Sensorium / Orientation: alert Motor Exam: strength 5/5 throughout Psych Psych Narrative: Minimal eye contact. Patient becomes animated at times. Patient has tremor noted. She states this is not a tremor this is her seizure disorder. Attitude: agitated Skin no rashes or lesions noted, no wounds and skin turgor normal General Skin Exam: elasticity normal; Negative for jaundice or pallor MDM MDM MDM Narrative Medical decision making narrative: Case management was consulted. Blood work was obtained to assess for evidence of infection or electrolyte abnormality. Suspect this is behavioral. X-ray of the foot was obtained because she has a bruise and states she injured it. This was obtained to assess for fracture versus contusion. Lab Data Attestation: I reviewed the patient's lab results. Lab results narrative: CBC is unremarkable. BMP reveals an elevated BUN/creatinine of 27 and 1.5 with an estimated GFR 42.This is essentially her baseline BUN and creatinine. Labs: Laboratory Results - last 24 hr 04/04/25 19:26 WBC 9.6 RBC 5.35 Hgb 16.0 H Hct 46.2 MCV 86.4 MCH 29.9 MCHC 34.6 RDW Std Deviation 39.6 RDW Coeff of Jeremiah 12.8 Plt Count 159 MPV 10.7 Immature Gran % (Auto) 0.500 Neut % (Auto) 65.7 Lymph % (Auto) 22.8 [place] % (Auto) 10.3 H Eos % (Auto) 0.4 Baso % (Auto) 0.3 Absolute Neuts (auto) 6.3 Absolute Lymphs (auto) 2.18 Nucleated RBC % 0 Sodium 137 Potassium 5.2 H Chloride 99 Carbon Dioxide 24.2 Anion Gap 13 BUN 27 H Creatinine 1.50 H Estim Creat Clear Calc 39.97 L Est GFR (MDRD) Non-Af 42 L BUN/Creatinine Ratio 17.7 Glucose 94 Calcium 10.0 Radiography Chest X-Ray - ED: Read by ED Physician (Three-view x-ray of the foot was independent with viewed interpreted by me at 2002 as negative. There is no fracture, subluxation, dislocation, soft tissue swelling or foreign body.) Diagnostic Testing: Clinical Impression(s) from Imaging Studies Foot X-Ray 04/04/25 19:26 IMPRESSION: NO ACUTE FRACTURE OR DISLOCATION. Reading Location: [place] [address] Management Discussion w/another healthcare provider: facility worker/Case management (Lori did see patient. She informed this is her third residential and the year. [place]ag[place] patient does not need psychiatric placement. This is behavioral. Therefore will discharge back to the nursing facility.) Treatment and Re-Evaluation :: Patient has known hypertension. She is asymptomatic and there is no evidence ofendorgan dysfunction. This can be treated at the nursing facility. There is noneed for urgent or emergent lowering of her blood pressure. Suspect part of this is due to her agitated state. Discharge Plan Triage Chief Complaint: Mental Health ED Provider: Lawson Higgins Dx/Rx/DC Orders Clinical Impression: Manipulative behavior, Tremor, Hyperlipidemia, HTN (hypertension), Contusion offoot, left, History of seizure disorder Instructions: How to Control Your Temper, ED High Blood Pressure Hypertension Prescriptions: No Action atorvastatin 20 mg tablet 20 mg PO QHS buspirone 10 mg tablet 10 mg PO TID levothyroxine 25 mcg capsule 25 mcg PO DAILY loratadine 10 mg capsule 10 mg PO QHS melatonin 5 mg capsule 10 mg PO QHS PRN (Reason: insomnia) acetaminophen [Tylenol] 325 mg capsule 650 mg PO Q4H PRN (Reason: fever or pain) artifi.tears(hypromellose)(PF) 0.3 % drops 2 drp ophthalmic (eye) .Q1HR PRN (Reason: dry eye(s)) guaifenesin 400 mg tablet 400 mg PO Q6H PRN (Reason: cough) potassium chloride 10 mEq capsule, extended release 20 meq PO BID Biofreeze (menthol) 4 % gel 1 applic topical DAILY PRN (Reason: pain) calcium carbonate [Gaby-Gest Antacid] 200 mg calcium (500 mg) tablet,chewable 200 mg PO DAILY cyanocobalamin (vitamin B-12) 1,000 mcg tablet 1,000 mcg PO DAILY levetiracetam [Keppra] 500 mg tablet 500 mg PO BID Qty: 60 4RF albuterol sulfate 1 PUFF inhaler 1 - 2 puff inhalation Q6H PRN PRN (Reason: Sob &/Or Wheezing) lorazepam 1 mg tablet 2 mg PO Q12H Rx Instructions: 1mg at night and 2mg in the morning allopurinol 100 mg tablet 100 mg PO DAILY bisacodyl 10 mg suppository 10 mg WV DAILY PRN (Reason: constipation) clonidine HCl 0.1 mg tablet 0.1 mg PO TID magnesium hydroxide 400 mg/5 mL suspension 30 ml PO DAILY PRN (Reason: constipation) sennosides [senna] 8.6 mg tablet 8.6 mg PO DAILY cholecalciferol (vitamin D3) 50 mcg (2,000 unit) capsule 2,000 unit PO DAILY divalproex 250 mg tablet extended release 24 hr 250 mg PO BID famotidine 20 mg tablet 20 mg PO BID calcium carbonate-vitamin D3 600 mg-10 mcg (400 unit) tablet 1 tab PO BID lisinopril 20 mg tablet 20 mg PO DAILY magnesium oxide 400 mg (241.3 mg magnesium) tablet 400 mg PO DAILY lidocaine 5 % adhesive patch,medicated 1 patch topical DAILY metoprolol tartrate 25 mg tablet 25 mg PO BID desvenlafaxine succinate 50 mg tablet extended release 24 hr 100 mg PO DAILY primidone 50 mg tablet 200 mg PO BID ondansetron 4 mg tablet,disintegrating 4 mg PO Q6H PRN (Reason: nausea and vomiting) Qty: 20 0RF amlodipine 5 mg tablet 5 mg PO BID Primary Care Provider: Sree Jamison Referrals: Sree Jamison MD [Primary Care Provider] - 1-2 Weeks Activity Restrictions/Additional Instructions: Will need to have your blood pressure checked within a week. Print Language: Brazilian Disposition Disposition: Home, Self Care What to do if you have Problems For any increased pain, shortness of breath, bleeding, nausea or vomiting, chestpain, or any unexpected problems, contact your Primary Care Provider. Call [facility] ([phone]) or report tothe closest Emergency Room. Call 911 if necessary. 04/04/252133 Cosigner Signature (if applicable): CC: Dr. Sree Jamison MD ~ Signed [facility]06-18-2025 Radiology Diagnostic study note [facility] Imaging Services [address] [place], [place] [address] Foot min 3 Views MR#: [id number] Acct: [id number] Name: REEMA SHAH Rep #: [id number] : 1975 F 49 From: Lupillo Morgan MD PCP: Dr. Sree Jamison MD Status: REG E R Study:Foot min 3 Views Date of Exam: Exam# [id number] Ordering Dr: Kalpana Higgins MD PROCEDURE: FOOT MIN 3 VIEWS 04/04/2025 REASON FOR EXAM: INJURY/PAIN TECHNIQUE: FOOT MIN 3 VIEWS COMPARISON: 11/04/2024. FINDINGS: No evidence acute fracture or dislocation. Mild degenerative changes of the foot. The soft tissues are unremarkable. RAD/Foot min 3 Views IMPRESSION: NO ACUTE FRACTURE OR DISLOCATION. Reading Location: [id number] CC: Dr. Sree Jamison MD; Dr. Lawson Higgins MD ~ [employer] Teacher: Signed [facility]06-04-2025 Discharge summary Author Ian Starr [facility] Note Date/Time March 21, 2025 4:12p m [facility] Medical Records Department [address] [place] [address] Emergency Department Summary 03/21/25 MR#: [id number] Acct: [id number] Name: REEMA SHAH Rep #:[id number] : 1975 49 From: Ian Starr MD PCP: Dr. Sree Jamison MD Status:REG E R Location: ED HPI History of Present Illness Chief Complaint: Seizure Informant: patient Narrative Narrative: 49-year-old female from a residential currently has seizure activity this morning. The patient states she thinks it was [place], was told she has a history of that. She had a 3-day epilepsy study that was abnormal, and is on antiepileptics, has had no major changes in her medications recently, she thinksshe received her morning medications after she had her seizure this morning. She denies any recent illness but states she vomits off and on and that has beenthe case yesterday. [facility] Medical History Borderline personality disorder Long-term use of high-risk medication Systolic heart failure Major depressive disorder Tremor History of IA (myocardial infarction) History of TIA (transient ischemic attack) MELQUIADES (obstructive sleep apnea) Separation of muscle (nontraumatic), unspecified site Nonrheumatic mitral (valve) prolapse Hypercholesteremia Fatty liver Edema Diaphragmatic hernia Hirsutism Fracture of nasal bone Insomnia History of UTI Obesity Psoriasis GERD (gastroesophageal reflux disease) CKD (chronic kidney disease) Epileptic seizure, generalized Hypokalemia Hypothyroidism [place] Home Medications ?Medication ?Instructions ?Recorded ?Last Taken ?Type albuterol sulfate 90 mcg/actuation 1 - 2 puff inhalati on Q6H PRN PRN 03/05/20 Unknown History aerosol inhaler Sob &/Or Wheezing acetaminophen 325 mg capsule 650 mg PO Q4H PRN fever o r pain 06/05/21 Unknown History (Tylenol) artifi.tears(hypromellose)(PF) 0.3 2 drp ophthalmic (e ye) .Q1HR PRN 06/05/21 Unknown History % eye drops dry eye(s) atorvastatin 20 mg tablet 20 mg PO QHS 06/05/21 Unknow n History buspirone 10 mg tablet 10 mg PO TID 06/05/21 Unknow n History levothyroxine 25 mcg capsule 25 mcg PO DAILY 06/05/21 Unknown History loratadine 10 mg capsule 10 mg PO QHS 06/05/21 Unknow n History melatonin 5 mg capsule 10 mg PO QHS PRN insomnia Unknown History potassium chloride 10 mEq 20 meq PO BID 08/26/21 Unkno wn History capsule,extended release calcium carbonate (Gaby-Gest 200 mg PO DAILY 12/23/21 U nknown History Antacid) cyanocobalamin (vitamin B-12) 1,000 mcg PO DAILY 12/23 Unknown History 1,000 mcg tablet guaifenesin 400 mg tablet 400 mg PO Q6H PRN cough 06/08 Unknown History menthol 4 % topical gel (Biofreeze 1 applic topical DA ALBER PRN pain 12/23/21 Unknown History (menthol)) levetiracetam 500 mg tablet 500 mg PO BID #60 tabs Unknown Rx (Keppra) calcium 600 mg (as 1 tab PO BID 09/26/24 Unknow n History carbonate)-vitamin D3 10 mcg (400 unit) tablet desvenlafaxine succinate 50 mg 100 mg PO DAILY 4 Unknown History tablet,extended release 24 hr famotidine 20 mg tablet 20 mg PO BID 09/26/24 Unknow n History lidocaine 5 % topical patch 1 patch topical DAILY 09/17 Unknown History lisinopril 20 mg tablet 20 mg PO DAILY 09/26/24 Unkn own History magnesium oxide 400 mg (241.3 mg 400 mg PO DAILY 09/26 Unknown History magnesium) tablet metoprolol tartrate 25 mg tablet 25 mg PO BID 09/26/24 Unknown History ondansetron 4 mg disintegrating 4 mg PO Q6H PRN nausea and 09/26/24 Unknown Rx tablet vomiting #20 tabs primidone 50 mg tablet 200 mg PO BID 09/26/24 Unkno wn History lorazepam 1 mg tablet 2 mg PO Q12H 10/02/24 Unknow n History amlodipine 5 mg tablet 5 mg PO BID 11/04/24 Unknown History allopurinol 100 mg tablet 100 mg PO DAILY 03/21/25 Unk nown History bisacodyl 10 mg rectal suppository 10 mg WV DAILY PRN constipation 03/21/25 Unknown History cholecalciferol (vitamin D3) 50 2,000 unit PO DAILY Unknown History mcg (2,000 unit) capsule clonidine HCl 0.1 mg tablet 0.1 mg PO TID 03/21/25 Unk nown History divalproex 250 mg tablet,extended 250 mg PO BID Unknown History release 24 hr magnesium hydroxide 400 mg/5 mL 30 ml PO DAILY PRN con stipation 03/21/25 Unknown History oral suspension sennosides 8.6 mg tablet (senna) 8.6 mg PO DAILY 03/21 Unknown History Allergy/AdvReac Type Severity Reaction Status Date / Time phenytoin Allergy Mild Other Verified 11/07/24 05:21 gabapentin (From Neurontin) Allergy Unknown Unknown Verified 11/07/24 05:21 hydrocodone Allergy Unknown Unknown Verified 11/07/24 05:21 acetaminophen (From Vicodin) Allergy Rash Verified 11/07/24 05:21 erythromycin base Allergy Rash Verified 11/07/24 05:21 (Erythromycin Base) hydrocodone bitartrate (From Allergy Rash Verified 11/07/24 05:21 Vicodin) hydromorphone (From Dilaudid) Allergy Rash Verified 11/07/24 05:21 Penicillins Allergy Rash Verified 11/07/24 05:21 promethazine HCl (From Allergy Vomiting Verified 11/07/24 05:21 Phenergan) tramadol Allergy Rash Verified 11/07/24 05:21 codeine AdvReac Vomiting Verified 11/07/24 05:21 morphine AdvReac Vomiting Verified 11/07/24 05:21 ondansetron HCl (From Zofran) AdvReac Vomiting Verified 11/07/24 05:21 Social History Smoking Status: Never smoker Electronic Cigarette Use: not used second hand exposure: No alcohol intake: never substance use type: does not use ROS ROS ED Review of Systems ROS Unobtainable: other Details: Limited due to memory and tremulousness Constitutional Constitutional ED: Denies chills or fever(s) Cardiovascular Cardiovascular: Denies chest pain Respiratory/Chest Respiratory/Chest: Denies cough or dyspnea Gastrointestinal Gastrointestinal: Reports vomiting and other Details: No nausea right now ; Denies abdominal pain or diarrhea Musculoskeletal Musculoskeletal: Denies back pain or neck pain Integumentary Denies rash Neurologic Neurologic: Denies headache(s), paresthesias or weakness Psychiatric Psychiatric: Reports anxiety EXAM Physical Exam Const Vital Signs: 03/21/25 09:37 03/21/25 12:11 03/21/25 14:06 Temperature 98.5 F Temperature Source Oral Pulse Rate 102 H 84 83 Respiratory Rate 16 16 11 L Blood Pressure 171/107 H 161/103 H 148/112 H Blood Pressure Mean 128 122 124 Pulse Ox 94 95 100 Oxygen Delivery Method Room Air Room Air Room Air Positive well nourished, well developed and obese General Appearance ED: well developed and NAD Nutritional Appearance: obese HEENT Reports moist mucous membranes normocephalic and atraumatic Eyes PERRL and EOMs intact bilaterally Neck full ROM and supple Resp normal respiratory effort and clear to auscultation bilaterally Cardio regular rate, regular rhythm and no murmurs GI non-tender and non-distended Auscultation: normoactive bowel sounds Palpation: soft Back/Spine no CVA tenderness General Back: other FROM Extremity normal to inspection General Extremety ED: Negative for edema, pulses abnormal or tenderness General Extremity: Negative for edema or pulses abnormal Neuro oriented x3, CN's II-XII intact bilaterally and no sensory deficits noted Neuro Narrative: Patient is moving all 4 extremities. She is very tremulous. She is having finemuscle spasms frequently, in the face, sometimes the arms and legs, but no convulsions/seizure activity. Sensorium / Orientation: awake and alert Skin no rashes or lesions noted and no wounds MDM MDM MDM Narrative Medical decision making narrative: Patient is very twitchy and tremulous, gave her some Ativan and Cogentin given her medication list while we obtained basic labs, urinalysis which is negative for infection, and a valproic acid level. It is low at 24. Therefore gave her a bolus of around half of a 17 mg/kg bolus, the rest of the labs are normal there is no leftward shift, the patient had no seizure activity while here in the ER but remained a little twitchy and tremulous. I had nurses call and determine her neurologic baseline with staff at the residential. She does havebaseline tremors, although they may be a little worse lately. She has significant behavioral issues according to the staff there. They states she dida 3 night sleep study and did not have any seizure activity. It is undeterminedif she had true seizure activity today or not. My plan was to increase her valproic acid dosing since I do not see an obvious reason for her breakthrough seizure such as an infection, but her list shows that she is on the extended release caplets twice daily, I am afraid it may be inaccurate so I do not want to increase this and cause harm. Therefore I recommend that she touch base withher neurology office for further instructions. Of note the patient asked me forpain medication for her foot and leg, which is normal-appearing and without bonytenderness or signs of compartment syndrome, she states it has been hurting her for months, and she has been given Tylenol at home the residential for it. I give her an IV dose of Toradol. Lab Data Attestation: I reviewed the patient's lab results. Labs: Laboratory Results - last 24 hr 03/21/25 03/21/25 10:35 10:57 WBC 4.7 RBC 4.72 Hgb 14.2 Hct 40.8 MCV 86.4 MCH 30.1 MCHC 34.8 RDW Std Deviation 38.5 RDW Coeff of Jeremiah 12.2 Plt Count 109 L MPV 10.0 Immature Gran % (Auto) 0.600 Neut % (Auto) 66.0 Lymph % (Auto) 23.2 [place] % (Auto) 9.0 Eos % (Auto) 0.6 Baso % (Auto) 0.6 Absolute Neuts (auto) 3.1 Absolute Lymphs (auto) 1.08 Nucleated RBC % 0 Sodium 138 Potassium 4.5 Chloride 102 Carbon Dioxide 23.8 Anion Gap 12 BUN 33 H Creatinine 1.39 H Estim Creat Clear Calc 43.92 L Est GFR (MDRD) Non-Af 46 L BUN/Creatinine Ratio 23.5 H Glucose 93 Lactic Acid < 1.0 Calcium 9.2 Magnesium 2.0 Urine Color Yellow Urine Clarity Clear Urine pH 6.0 Ur Specific [place] 1.015 Urine Protein 30 H Urine Glucose (UA) Normal Urine Ketones Negative Urine Occult Blood Negative Urine Nitrite Negative Urine Bilirubin Negative Urine Urobilinogen Normal Ur Leukocyte Esterase Negative Urine RBC 0 SEEN Urine WBC 0-5 SEEN Ur Squamous Epith Cells 0-5 SEEN Urine Bacteria 0 SEEN Hyaline Casts 0-5 SEEN Urine Mucus 0 SEEN Valproic Acid 24 L Rhythm Strip Rhythm Strip: Sinus Rhythm Rate: 100 Ectopy: None Discharge Plan Triage Chief Complaint: Seizure ED Provider: Ian Starr Dx/Rx/DC Orders Clinical Impression: Seizure-like activity, Epilepsy, Chronic tremor Instructions: ED Seizure, Recurrent (Adult) Prescriptions: Continued atorvastatin 20 mg tablet 20 mg PO QHS buspirone 10 mg tablet 10 mg PO TID levothyroxine 25 mcg capsule 25 mcg PO DAILY loratadine 10 mg capsule 10 mg PO QHS melatonin 5 mg capsule 10 mg PO QHS PRN (Reason: insomnia) acetaminophen [Tylenol] 325 mg capsule 650 mg PO Q4H PRN (Reason: fever or pain) artifi.tears(hypromellose)(PF) 0.3 % drops 2 drp ophthalmic (eye) .Q1HR PRN (Reason: dry eye(s)) guaifenesin 400 mg tablet 400 mg PO Q6H PRN (Reason: cough) potassium chloride 10 mEq capsule, extended release 20 meq PO BID Biofreeze (menthol) 4 % gel 1 applic topical DAILY PRN (Reason: pain) calcium carbonate [Gaby-Gest Antacid] 200 mg calcium (500 mg) tablet,chewable 200 mg PO DAILY cyanocobalamin (vitamin B-12) 1,000 mcg tablet 1,000 mcg PO DAILY levetiracetam [Keppra] 500 mg tablet 500 mg PO BID Qty: 60 4RF albuterol sulfate 1 PUFF inhaler 1 - 2 puff inhalation Q6H PRN PRN (Reason: Sob &/Or Wheezing) lorazepam 1 mg tablet 2 mg PO Q12H Rx Instructions: 1mg at night and 2mg in the morning allopurinol 100 mg tablet 100 mg PO DAILY bisacodyl 10 mg suppository 10 mg WV DAILY PRN (Reason: constipation) clonidine HCl 0.1 mg tablet 0.1 mg PO TID magnesium hydroxide 400 mg/5 mL suspension 30 ml PO DAILY PRN (Reason: constipation) sennosides [senna] 8.6 mg tablet 8.6 mg PO DAILY cholecalciferol (vitamin D3) 50 mcg (2,000 unit) capsule 2,000 unit PO DAILY divalproex 250 mg tablet extended release 24 hr 250 mg PO BID famotidine 20 mg tablet 20 mg PO BID calcium carbonate-vitamin D3 600 mg-10 mcg (400 unit) tablet 1 tab PO BID lisinopril 20 mg tablet 20 mg PO DAILY magnesium oxide 400 mg (241.3 mg magnesium) tablet 400 mg PO DAILY lidocaine 5 % adhesive patch,medicated 1 patch topical DAILY metoprolol tartrate 25 mg tablet 25 mg PO BID desvenlafaxine succinate 50 mg tablet extended release 24 hr 100 mg PO DAILY primidone 50 mg tablet 200 mg PO BID ondansetron 4 mg tablet,disintegrating 4 mg PO Q6H PRN (Reason: nausea and vomiting) Qty: 20 0RF amlodipine 5 mg tablet 5 mg PO BID Primary Care Provider: Sree Jamison Referrals: Valentina Chopra MD [Non-Staff] - As soon as possible Sree Jamison MD [Primary Care Provider] - Activity Restrictions/Additional Instructions: Depakote level after taking medication today was 24, about half of the lower limit of what it should be. Please call and discussed with Dr. Chopra's office for recommended dosage increase. Print Language: Brazilian Disposition Disposition: Home, Self Care What to do if you have Problems For any increased pain, shortness of breath, bleeding, nausea or vomiting, chestpain, or any unexpected problems, contact your Primary Care Provider. Call [facility] ([phone]) or report to the closest Emergency Room. Call 911 if necessary. 03/21/25 1612 <Electronically signed by Ian Starr MD> Cosigner Signature (if applicable): CC: Dr. Sree Jamison MD ~ Signed [facility] Work Phone: [phone] Discharge summary [facility] Medical Records Department [address] [place] [address] Emergency Department Summary 03/21/25 MR#: [id number] Acct: [id number] Name: REEMA SHAH Rep #:[id number] : 1975 49 From: Ian Starr MD PCP: Dr. Sree Jamison MD Status:REG E R Location: ED HPI History of Present Illness Chief Complaint: Seizure Informant: patient Narrative Narrative: 49-year-old female from a residential currently has seizure activity this morning. The patient states she thinks it was [place], was told she has a history of that. She had a 3-day epilepsy studythat was abnormal, and is on antiepileptics, has had no major changes in her medications recently, she thinksshe received her morning medications after she had her seizure this morning. She denies any recent illness but states she vomits off and on and that has beenthe case yesterday. PFSH [facility] Medical History Borderline personality disorder Long-term use of high-risk medication Systolic heart failure Major depressive disorder Tremor History of IA (myocardial infarction) History of TIA (transient ischemic attack) MELQUIADES (obstructive sleep apnea) Separation of muscle (nontraumatic), unspecified site Nonrheumatic mitral (valve) prolapse Hypercholesteremia Fatty liver Edema Diaphragmatic hernia Hirsutism Fracture of nasal bone Insomnia History of UTI Obesity Psoriasis GERD (gastroesophageal reflux disease) CKD (chronic kidney disease) Epileptic seizure, generalized Hypokalemia Hypothyroidism Falls Home Medications ?Medication ?Instructions ?Recorded ?Last Taken ?Type albuterol sulfate 90 mcg/actuation 1 - 2 puff inhalati on Q6H PRN PRN 03/05/20 Unknown History aerosol inhaler Sob &/Or Wheezing acetaminophen 325 mg capsule 650 mg PO Q4H PRN fever o r pain 06/05/21 Unknown History (Tylenol) artifi.tears(hypromellose)(PF) 0.3 2 drp ophthalmic (e ye) .Q1HR PRN 06/05/21 Unknown History % eye drops dry eye(s) atorvastatin 20 mg tablet 20 mg PO QHS 06/05/21 Unknow n History buspirone 10 mg tablet 10 mg PO TID 06/05/21 Unknow n History levothyroxine 25 mcg capsule 25 mcg PO DAILY 06/05/21 Unknown History loratadine 10 mg capsule 10 mg PO QHS 06/05/21 Unknow n History melatonin 5 mg capsule 10 mg PO QHS PRN insomnia Unknown History potassium chloride 10 mEq 20 meq PO BID 08/26/21 Unkno wn History capsule,extended release calcium carbonate (Gaby-Gest 200 mg PO DAILY 12/23/21 U nknown History Antacid) cyanocobalamin (vitamin B-12) 1,000 mcg PO DAILY 12/23 Unknown History 1,000 mcg tablet guaifenesin 400 mg tablet 400 mg PO Q6H PRN cough 06/08 Unknown History menthol 4 % topical gel (Biofreeze 1 applic topical DA ALBER PRN pain 12/23/21 Unknown History (menthol)) levetiracetam 500 mg tablet 500 mg PO BID #60 tabs Unknown Rx (Keppra) calcium 600 mg (as 1 tab PO BID 09/26/24 Unknow n History carbonate)-vitamin D3 10 mcg (400 unit) tablet desvenlafaxine succinate 50 mg 100 mg PO DAILY 4 Unknown History tablet,extended release 24 hr famotidine 20 mg tablet 20 mg PO BID 09/26/24 Unknow n History lidocaine 5 % topical patch 1 patch topical DAILY 09/17 Unknown History lisinopril 20 mg tablet 20 mg PO DAILY 09/26/24 Unkn own History magnesium oxide 400 mg (241.3 mg 400 mg PO DAILY 09/26 Unknown History magnesium) tablet metoprolol tartrate 25 mg tablet 25 mg PO BID 09/26/24 Unknown History ondansetron 4 mg disintegrating 4 mg PO Q6H PRN nausea and 09/26/24 Unknown Rx tablet vomiting #20 tabs primidone 50 mg tablet 200 mg PO BID 09/26/24 Unkno wn History lorazepam 1 mg tablet 2 mg PO Q12H 10/02/24 Unknow n History amlodipine 5 mg tablet 5 mg PO BID 11/04/24 Unknown History allopurinol 100 mg tablet 100 mg PO DAILY 03/21/25 Unk nown History bisacodyl 10 mg rectal suppository 10 mg WV DAILY PRN constipation 03/21/25 Unknown History cholecalciferol (vitamin D3) 50 2,000 unit PO DAILY Unknown History mcg (2,000 unit) capsule clonidine HCl 0.1 mg tablet 0.1 mg PO TID 03/21/25 Unk nown History divalproex 250 mg tablet,extended 250 mg PO BID Unknown History release 24 hr magnesium hydroxide 400 mg/5 mL 30 ml PO DAILY PRN con stipation 03/21/25 Unknown History oral suspension sennosides 8.6 mg tablet (senna) 8.6 mg PO DAILY 03/21 Unknown History Allergy/AdvReac Type Severity Reaction Status Date / Time phenytoin Allergy Mild Other Verified 11/07/24 05:21 gabapentin (From Neurontin) Allergy Unknown Unknown Verified 11/07/24 05:21 hydrocodone Allergy Unknown Unknown Verified 11/07/24 05:21 acetaminophen (From Vicodin) Allergy Rash Verified 11/07/24 05:21 erythromycin base Allergy Rash Verified 11/07/24 05:21 (Erythromycin Base) hydrocodone bitartrate (From Allergy Rash Verified 11/07/24 05:21 Vicodin) hydromorphone (From Dilaudid) Allergy Rash Verified 11/07/24 05:21 Penicillins Allergy Rash Verified 11/07/24 05:21 promethazine HCl (From Allergy Vomiting Verified 11/07/24 05:21 Phenergan) tramadol Allergy Rash Verified 11/07/24 05:21 codeine AdvReac Vomiting Verified 11/07/24 05:21 morphine AdvReac Vomiting Verified 11/07/24 05:21 ondansetron HCl (From Zofran) AdvReac Vomiting Verified 11/07/24 05:21 Social History Smoking Status: Never smoker Electronic Cigarette Use: not used second hand exposure: No alcohol intake: never substance use type: does not use ROS ROS ED Review of Systems ROS Unobtainable: other Details: Limited due to memory and tremulousness Constitutional Constitutional ED: Denies chills or fever(s) Cardiovascular Cardiovascular: Denies chest pain Respiratory/Chest Respiratory/Chest: Denies cough or dyspnea Gastrointestinal Gastrointestinal: Reports vomiting and other Details: No nausea right now ; Denies abdominal pain or diarrhea Musculoskeletal Musculoskeletal: Denies back pain or neck pain Integumentary Denies rash Neurologic Neurologic: Denies headache(s), paresthesias or weakness Psychiatric Psychiatric: Reports anxiety EXAM Physical Exam Const Vital Signs: 03/21/25 09:37 03/21/25 12:11 03/21/25 14:06 Temperature 98.5 F Temperature Source Oral Pulse Rate 102 H 84 83 Respiratory Rate 16 16 11 L Blood Pressure 171/107 H 161/103 H 148/112 H Blood Pressure Mean 128 122 124 Pulse Ox 94 95 100 Oxygen Delivery Method Room Air Room Air Room Air Positive well nourished, well developed and obese General Appearance ED: well developed and NAD Nutritional Appearance: obese HEENT Reports moist mucous membranes normocephalic and atraumatic Eyes PERRL and EOMs intact bilaterally Neck full ROM and supple Resp normal respiratory effort and clear to auscultation bilaterally Cardio regular rate, regular rhythm and no murmurs GI non-tender and non-distended Auscultation: normoactive bowel sounds Palpation: soft Back/Spine no CVA tenderness General Back: other FROM Extremity normal to inspection General Extremety ED: Negative for edema, pulses abnormal or tenderness General Extremity: Negative for edema or pulses abnormal Neuro oriented x3, CN's II-XII intact bilaterally and no sensory deficits noted Neuro Narrative: Patient is moving all 4 extremities. She is very tremulous. She is having finemuscle spasms frequently, in the face, sometimes the arms and legs, but no convulsions/seizure activity. Sensorium / Orientation: awake and alert Skin no rashes or lesions noted and no wounds MDM MDM MDM Narrative Medical decision making narrative: Patient is very twitchy and tremulous, gave her some Ativan and Cogentin given her medication list while we obtained basic labs, urinalysis which is negative for infection, and a valproic acid level.It is low at 24. Therefore gave her a bolus of around half of a 17 mg/kg bolus, the rest of the labs are normal there is no leftward shift, the patient had no seizure activity while here in the ER but remained a little twitchy and tremulous. I had nurses call and determine her neurologic baseline with staff at the residential. She does havebaseline tremors, although they may be a little worse lately. She has significant behavioral issues according to the staff there. They states she dida 3 night sleep study and did not have any seizure activity. It is undeterminedif she had true seizure activity today or not. My plan was to increase her valproic acid dosing since I do not see an obvious reason for her breakthrough seizure such as an infection, but her list shows that she is on the extended release caplets twice daily, I am afraid it may be inaccurate so I do not want to increase this and cause harm. Therefore I recommend that she touch base withher neurology office for further instructions. Of note the patient asked me forpain medication for her foot and leg, which is normal-appearing and without bonytenderness or signs of compartment syndrome, she states it has been hurting her for months, and she has been given Tylenol at home the residential for it. I give her an IV dose ofToradol. Lab Data Attestation: I reviewed the patient's lab results. Labs: Laboratory Results - last 24 hr 03/21/25 03/21/25 10:35 10:57 WBC 4.7 RBC 4.72 Hgb 14.2 Hct 40.8 MCV 86.4 MCH 30.1 MCHC 34.8 RDW Std Deviation 38.5 RDW Coeff of Jeremiah 12.2 Plt Count 109 L MPV 10.0 Immature Gran % (Auto) 0.600 Neut % (Auto) 66.0 Lymph % (Auto) 23.2 [place] % (Auto) 9.0 Eos % (Auto) 0.6 Baso % (Auto) 0.6 Absolute Neuts (auto) 3.1 Absolute Lymphs (auto) 1.08 Nucleated RBC % 0 Sodium 138 Potassium 4.5 Chloride 102 Carbon Dioxide 23.8 Anion Gap 12 BUN 33 H Creatinine 1.39 H Estim Creat Clear Calc 43.92 L Est GFR (MDRD) Non-Af 46 L BUN/Creatinine Ratio 23.5 H Glucose 93 Lactic Acid < 1.0 Calcium 9.2 Magnesium 2.0 Urine Color Yellow Urine Clarity Clear Urine pH 6.0 Ur Specific [place] 1.015 Urine Protein 30 H Urine Glucose (UA) Normal Urine Ketones Negative Urine Occult Blood Negative Urine Nitrite Negative Urine Bilirubin Negative Urine Urobilinogen Normal Ur Leukocyte Esterase Negative Urine RBC 0 SEEN Urine WBC 0-5 SEEN Ur Squamous Epith Cells 0-5 SEEN Urine Bacteria 0 SEEN Hyaline Casts 0-5 SEEN Urine Mucus 0 SEEN Valproic Acid 24 L Rhythm Strip Rhythm Strip: Sinus Rhythm Rate: 100 Ectopy: None Discharge Plan Triage Chief Complaint: Seizure ED Provider: Ian Starr Dx/Rx/DC Orders Clinical Impression: Seizure-like activity, Epilepsy, Chronic tremor Instructions: ED Seizure, Recurrent (Adult) Prescriptions: Continued atorvastatin 20 mg tablet 20 mg PO QHS buspirone 10 mg tablet 10 mg PO TID levothyroxine 25 mcg capsule 25 mcg PO DAILY loratadine 10 mg capsule 10 mg PO QHS melatonin 5 mg capsule 10 mg PO QHS PRN (Reason: insomnia) acetaminophen [Tylenol] 325 mg capsule 650 mg PO Q4H PRN (Reason: fever or pain) artifi.tears(hypromellose)(PF) 0.3 % drops 2 drp ophthalmic (eye) .Q1HR PRN (Reason: dry eye(s)) guaifenesin 400 mg tablet 400 mg PO Q6H PRN (Reason: cough) potassium chloride 10 mEq capsule, extended release 20 meq PO BID Biofreeze (menthol) 4 % gel 1 applic topical DAILY PRN (Reason: pain) calcium carbonate [Gaby-Gest Antacid] 200 mg calcium (500 mg) tablet,chewable 200 mg PO DAILY cyanocobalamin (vitamin B-12) 1,000 mcg tablet 1,000 mcg PO DAILY levetiracetam [Keppra] 500 mg tablet 500 mg PO BID Qty: 60 4RF albuterol sulfate 1 PUFF inhaler 1 - 2 puff inhalation Q6H PRN PRN (Reason: Sob &/Or Wheezing) lorazepam 1 mg tablet 2 mg PO Q12H Rx Instructions: 1mg at night and 2mg in the morning allopurinol 100 mg tablet 100 mg PO DAILY bisacodyl 10 mg suppository 10 mg WV DAILY PRN (Reason: constipation) clonidine HCl 0.1 mg tablet 0.1 mg PO TID magnesium hydroxide 400 mg/5 mL suspension 30 ml PO DAILY PRN (Reason: constipation) sennosides [senna] 8.6 mg tablet 8.6 mg PO DAILY cholecalciferol (vitamin D3) 50 mcg (2,000 unit) capsule 2,000 unit PO DAILY divalproex 250 mg tablet extended release 24 hr 250 mg PO BID famotidine 20 mg tablet 20 mg PO BID calcium carbonate-vitamin D3 600 mg-10 mcg (400 unit) tablet 1 tab PO BID lisinopril 20 mg tablet 20 mg PO DAILY magnesium oxide 400 mg (241.3 mg magnesium) tablet 400 mg PO DAILY lidocaine 5 % adhesive patch,medicated 1 patch topical DAILY metoprolol tartrate 25 mg tablet 25 mg PO BID desvenlafaxine succinate 50 mg tablet extended release 24 hr 100 mg PO DAILY primidone 50 mg tablet 200 mg PO BID ondansetron 4 mg tablet,disintegrating 4 mg PO Q6H PRN (Reason: nausea and vomiting) Qty: 20 0RF amlodipine 5 mg tablet 5 mg PO BID Primary Care Provider: Sree Jamison Referrals: Valentina Chopra MD [Non-Staff] - As soon as possible Sree Jamison MD [Primary Care Provider] - Activity Restrictions/Additional Instructions: Depakote level after taking medication today was 24, about half of the lower limit of what it should be. Please call and discussed with Dr. Chopra's office for recommended dosage increase. Print Language: Brazilian Disposition Disposition: Home, Self Care What to do if you have Problems For any increased pain, shortness of breath, bleeding, nausea or vomiting, chestpain, or any unexpected problems, contact your Primary Care Provider. Call [facility] ([phone]) or report tothe closest Emergency Room. Call 911 if necessary. 03/21/25 1612 Cosigner Signature (if applicable): CC: Dr. Sere Jamison MD ~ Signed [facility]05-29-2025 NotePHYSICAL THERAPY [facility] Initial Evaluation Name/MRN: Adore Shah ([id number]) Evaluation Date: 03/15/2025 Date of : 1975 Admission Date: 03/13/2025 11:18 AM Age: 49 y.o. Room/Bed: N3-346/N3-346 A Discharge Recommendation: [facility] Facility Equipment Needed: No Assessment IMPRESSION: Pt was in bed. Her x ray of left foot is negative for fracture. It still hurts. She got up to the chair with moderate assist. She wanted to don her underwear and her shorts before getting to the chair, she required moderate assist. She is 4'8 tall, and getting onto the chair was a challenge as well. She takes extra time for her movements, and had a bit of difficulty scooting back in the chair. She is at SNF level for discharge. Admitting Diagnosis: seizure disorder. Prognosis: good Performance Deficits /Impairments: Increased Pain, Decreased Functional Mobility, Decreased ADL status, Decreased Strength, Decreased Safety Awareness, Decreased Endurance, and Decreased Balance Decision Making: Medium Complexity Subjective Patient was in the bed, got up and got her lower half dressed and got to the chair during this session. She was in the chair at the end of the session, with a chair alarm on. Pain: left foot pain during gait. Past Medical History: Medical History[1] Past Surgical History: Surgical History[2] Admission Diagnosis: Patient Active Problem List Diagnosis Date Noted Seizure disorder ([facility]) ([facility]) 03/13/2025 Vaginal bleeding 10/25/2023 Presence of intrauterine contraceptive device 10/25/2023 Obesity with body mass index 30 or greater 10/25/2023 Hypocalcemia 10/25/2023 Closed head injury 10/25/2023 Pelvic pain 08/16/2023 Generalized hyperhidrosis 04/01/2023 Personal history of transient ischemic attack (TIA), and cerebral infarction without residual deficits 04/01/2023 Psychoactive substance dependence ([facility]) 02/25/2023 Unilateral primary osteoarthritis, left knee 01/19/2023 Tremor 01/11/2023 Seizure-like activity ([facility]) 01/11/2023 Tinea corporis 01/11/2023 Dermatophytosis 01/11/2023 Stage 3b chronic kidney disease ([facility]) 01/11/2023 Scalp hematoma 01/11/2023 Osteopenia 01/11/2023 Migraines 01/11/2023 Hypomagnesemia 01/11/2023 Hyperglycemia 01/11/2023 Hypercholesterolemia 01/11/2023 Fatty liver 01/11/2023 COVID-19 01/11/2023 Compression fracture of T5 vertebra ([facility]) 01/11/2023 Urinary tract infection 01/08/2023 Chronic systolic heart failure ([facility]) 01/08/2023 Spondylosis without myelopathy or radiculopathy, lumbar region 12/23/2022 Chronic low back pain 11/26/2022 Recurrent falls 08/24/2022 Generalized epilepsy (CMS/HCC) ([facility]) 12/30/2021 Abnormal gait 12/30/2021 Weakness 12/01/2020 Thrombocytopenia ([facility]) 12/01/2020 Hypothyroidism 12/01/2020 Hypokalemia 12/01/2020 Fracture of nasal bones, initial encounter for closed fracture 12/01/2020 Fall 12/01/2020 Valproic acid toxicity 03/01/2019 Chest pain at rest 10/12/2018 Scalp psoriasis 04/07/2017 Depression with anxiety 04/07/2017 Hiatal hernia 01/05/2017 Hirsutism 10/05/2016 GERD (gastroesophageal reflux disease) 09/04/2016 Irregular menstrual cycle 04/01/2007 Metabolic syndrome 10/28/2006 Essential hypertension, benign 10/18/2000 Medical Precautions: No active isolations Proper PPE donned/doffed in accordance with facility standards. Fall Risk: Darby Fall Risk Score: 20 (Low Risk) Precautions/Restrictions: Seizure Precautions Fall Precautions Left foot pain Family/Caregiver Present: none Overall Cognitive Status: WFL Overall Orientation Status: Oriented x4 Vision: Not Assessed Hearing: normal Social/Functional History Patient admitted from SNF. Assistive Equipment: front wheeled walker Prior Level of Function Prior Level of ADL Function: Required Assist Prior Level of Mobility: Required Assist; Device: Used therapist for support Prior Level of Transfers: Required Assist Objective Lower Extremity Assessment AROM: WFL PROM: Not assessed this session Strength: Exceptions: grossly assessed to be 4-/5 bilaterally Sensation: Impaired: Balance: Balance During Session: Posture: fair Sitting - Static: Supervision Sitting - Dynamic: Supervision Standing - Static: Min Assist Standing - Dynamic: Mod Assist Bed Mobility: Supine to sit: Min Assist Rolling to left: Contact Guard Scooting: Mod Assist Transfers Sit to stand: Min Assist Stand to sit: Min Assist Ambulation Ambulation 1 Assistive device(s) used: Used therapist for support Assist level: Mod Assist Distance (ft): 6' Quality of gait: antalgic, step to pattern, uneven step length, narrow DESIRAE, slow monika, instability through all phases, tremors in LE's throughout transfer. Coordination: decreased coordination with transfers, standing, during dressing. Tremors: Yes, Frequency: Fast, and Location: legs Heart Failure on Admission Dyspnea: Yes Heart failure di (more content not included)...[facility]05-29-2025 History of Present illness Narrative* Fannie Tay, PT - 03/15/2025 2:09 PM EDT Images from the original note were not included. PHYSICAL THERAPY [facility] Initial Evaluation Name/MRN: Adore Shah ([id number]) Evaluation Date: 03/15/2025 Date of : 1975 Admission Date: 03/13/2025 11:18 AM Age: 49 y.o. Room/Bed: N3-346/N3-346 A Discharge Recommendation: [facility] Facility Equipment Needed: No Assessment IMPRESSION: Pt was in bed. Her x ray of left foot is negative for fracture. It still hurts. She gotup to the chair with moderate assist. She wanted to don her underwear and her shorts before gettingto the chair, she required moderate assist. She is 4'8 tall, and getting onto the chair was a challenge as well. She takes extra time for her movements, and had a bit of difficulty scooting back in the chair. She is at SNF level for discharge. Admitting Diagnosis: seizure disorder. Prognosis: good Performance Deficits /Impairments: Increased Pain, Decreased Functional Mobility, Decreased ADL status, Decreased Strength, Decreased Safety Awareness, Decreased Endurance, and Decreased Balance Decision Making: Medium Complexity Subjective Patient was in the bed, got up and got her lower half dressed and got to the chair during this session. She was in the chair at the end of the session, with a chair alarm on. Pain: left foot pain during gait. Past Medical History: Medical History[1] Past Surgical History: Surgical History[2] Admission Diagnosis: Patient Active Problem List Diagnosis Date Noted Seizure disorder ([facility]) ([facility]) 03/13/2025 Vaginal bleeding 10/25/2023 Presence of intrauterine contraceptive device 10/25/2023 Obesity with body mass index 30 or greater 10/25/2023 Hypocalcemia 10/25/2023 Closed head injury 10/25/2023 Pelvic pain 08/16/2023 Generalized hyperhidrosis 04/01/2023 Personal history of transient ischemic attack (TIA), and cerebral infarction without residual deficits 04/01/2023 Psychoactive substance dependence ([facility]) 02/25/2023 Unilateral primary osteoarthritis, left knee 01/19/2023 Tremor 01/11/2023 Seizure-like activity ([facility]) 01/11/2023 Tinea corporis 01/11/2023 Dermatophytosis 01/11/2023 Stage 3b chronic kidney disease ([facility]) 01/11/2023 Scalp hematoma 01/11/2023 Osteopenia 01/11/2023 Migraines 01/11/2023 Hypomagnesemia 01/11/2023 Hyperglycemia 01/11/2023 Hypercholesterolemia 01/11/2023 Fatty liver 01/11/2023 COVID-19 01/11/2023 Compression fracture of T5 vertebra ([facility]) 01/11/2023 Urinary tract infection 01/08/2023 Chronic systolic heart failure ([facility]) 01/08/2023 Spondylosis without myelopathy or radiculopathy, lumbar region 12/23/2022 Chronic low back pain 11/26/2022 Recurrent falls 08/24/2022 Generalized epilepsy (CMS/HCC) ([facility]) 12/30/2021 Abnormal gait 12/30/2021 Weakness 12/01/2020 Thrombocytopenia ([facility]) 12/01/2020 Hypothyroidism 12/01/2020 Hypokalemia 12/01/2020 Fracture of nasal bones, initial encounter for closed fracture 12/01/2020 Fall 12/01/2020 Valproic acid toxicity 03/01/2019 Chest pain at rest 10/12/2018 Scalp psoriasis 04/07/2017 Depression with anxiety 04/07/2017 Hiatal hernia 01/05/2017 Hirsutism 10/05/2016 GERD (gastroesophageal reflux disease) 09/04/2016 Irregular menstrual cycle 04/01/2007 Metabolic syndrome 10/28/2006 Essential hypertension, benign 10/18/2000 Medical Precautions: No active isolations Proper PPE donned/doffed in accordance with facility standards. Fall Risk: Darby Fall Risk Score: 20 (Low Risk) Precautions/Restrictions: Seizure Precautions Fall Precautions Left foot pain Family/Caregiver Present: none Overall Cognitive Status: WFL Overall Orientation Status: Oriented x4 Vision: Not Assessed Hearing: normal Social/Functional History Patient admitted from SNF. Assistive Equipment: front wheeled walker Prior Level of Function Prior Level of ADL Function: Required Assist Prior Level of Mobility: Required Assist; Device: Used therapist for support Prior Level of Transfers: Required Assist Objective Lower Extremity Assessment AROM: WFL PROM: Not assessed this session Strength: Exceptions: grossly assessed to be 4-/5 bilaterally Sensation: Impaired: Balance: Balance During Session: Posture: fair Sitting - Static: Supervision Sitting - Dynamic: Supervision Standing - Static: Min Assist Standing - Dynamic: Mod Assist Bed Mobility: Supine to sit: Min Assist Rolling to left: Contact Guard Scooting: Mod Assist Transfers Sit to stand: Min Assist Stand to sit: Min Assist Ambulation Ambulation 1 Assistive device(s) used: Used therapist for support Assist level: Mod Assist Distance (ft): 6' Quality of gait: antalgic, step to pattern, uneven step length, narrow DESIRAE, slow monika, instability through all phases, tremors in LE's throughout transfer. Coordination: decreased coordination with transfers, standing, during dressing. Tremors: Yes, Frequency: Fast, and Location: legs Heart Failure on Admission Dyspnea: Yes Heart failure diagnosis: Yes dyspnea at rest Outcome Measures AM-PAC How much HELP from another person do you currently need Turning from your back to your side while in a flat bed without using bedrails?: A Little Moving from lying on your back to sitting on the side of a flat bed without using bedrails?: A Lot Moving to and from a bed to a chair (including a wheelchair)?: A Lot Standing up from a chair using your arms (wheelchair or bedside chair)?: A Lot Walking in a hospital room?: A Little Stair climbing assessed?: No AM-PAC Inpatient Mobility Raw Score (No Stairs) : 12 [facility] Score: Static standing (1 or more minutes) Plan Pt would benefit from skilled acute PT services to address Strengthening, Gait Training, Balance Training, Functional Mobility Training, and Endurance Training. Frequency: 3x/week for a week Barriers: Lower extremity weakness, Decreased endurance, Limited insight into deficits, and Long standing deficits Safety/Education Safety Safety Devices in place: call light within reach, left in chair, chair alarm in place, gait belt, and nurse notified Restraints: No Education Education Given To: patient Education Provided: PT Role, Gait Training, Precautions, Transfer Training, and Discharge Recommendations Education Method: Verbal and Demonstration Barriers to Learning: None Education Outcome: Continued Education Needed Goals Patient Stated Goal: to move better, be stronger. Encounter Problems Encounter Problems (Active) Mobility Patient will ambulate 50 feet with min assist and least restrictive device in order to improve safety and independence with mobility. Start: 03/15/25 Expected End: 03/22/25 Transfers Patient will perform bed mobility with supervision in order to improve independence and prepare forout of bed mobility. Start: 03/15/25 Expected End: 03/22/25 Patient will complete functional transfer with least restrictive device with min assist in order toprepare for ambulation. Start: 03/15/25 Expected End: 03/22/25 Therapy Time Individual Co-Treatment Co-Evaluation Time In 1315 Time Out 1345 Minutes 30 Fannie Cross, PT Patient's Physical Therapy Plan of Care supervision is transferred to a [facility] Therapy Services Physical Therapist. Goals and/or treatment plan was established in collaboration with patient/family/other representatives. [1] Past Medical History: Diagnosis Date Anxiety Chronic kidney disease Epilepsy (HCC) Essential hypertension Gastro-esophageal reflux disease without esophagitis Hypokalemia Hypothyroidism Obesity Personal history of urinary (tract) infections Psoriasis Repeated falls Thrombocytopenia (HCC) [2] Past Surgical History: Procedure Laterality Date BREAST REDUCTION * Kita Martinez - 03/15/2025 1:02 PM EDT Nutrition rescreen completed. Chart reviewed. Patient to be monitored and followed by the diet agricultural technician. * Fannie Cross PT - 03/14/2025 1:16 PM EDT Images from the original note were not included. PHYSICAL THERAPY [facility] Name/MRN: Adore Shah ([id number]) Date: 03/14/2025 Pt states she has left foot pain and they are going to do an xray to see if she broke her left foot. She is currently on a continuous EEG. PT held at this time. Fannie Cross PT * Mee Perez NP - 03/14/2025 11:58 AM EDT Images from the original note were not included. Department of Neurological Sciences Section of Epilepsy PROGRESS NOTE ID: Reema Shah is a 49 y.o. female with history of mood disorder, borderline personality disorder, psoriasis, and epilepsy since Jun 10, 1994 while at the [facility] when she experienced aconvulsion. She is admitted for a diagnostic cvEEG. INTERVAL EVENTS: No new events overnight. EEG over night was negative for epileptiform activity or seizures, howeverit shows diffuse slow with delta-theta semi-rhythmic slow waves. No significant changes. She complaints of left foot pain, and reports that she broke her left foot in 09/2024. OBJECTIVE: Current Medications[1] PHYSICAL EXAM: BP (!) 169/86 (BP Location: Right arm, Patient Position: Sitting) Pulse 80 Temp 36.2 C (97.2 F)(Temporal) Resp 16 Ht 4' 8 (1.422 m) SpO2 94% BMI 35.20 kg/m Physical Exam NEUROLOGIC: Mental status: The patient was in no distress, alert, interactive and cooperative. Affect is appropriate. Language is intact to naming, repetition, and comprehension. Memory intact to recent and remote events. Cranial nerve II: Visual giron intact to finger counting. Cranial nerves III, IV, and : Pupils are equal, round, and reactive to light; no ptosis. EOMs intact. No nystagmus. Cranial Nerve V: Intact to light touch symmetrically throughout the face in all distributions. Cranial nerve VII: Normal and symmetric facial strength. Cranial nerve VIII: Hearing is intact bilaterally to voice. Cranial nerves IX and X: Palate elevates symmetrically. Cranial nerve XI: Shoulder shrug and neck rotation strength are intact. Cranial nerve XII: Tongue midline with normal movement. Motor: Moves all 4 limbs briskly against gravity. Strength is 5-/5 throughout the upper and lower extremities, with decreased strength and ROM of left foot. Deep Tendon Reflexes: 2+ throughout the upper and lower extremities. Sensory Exam: Intact to light touch, vibration, and pinprick throughout the upper and lower extremities. Coordination: No dysmetria on vqselg-wzcy-kukhys or yggh-nfus-nqqd testing. Rapid alternating movements without dysdiadochokinesia. Gait: Able to rise from a chair without using their bilateral upper extremities. Normal stride length and speed. DATA reviewed ASSESSMENT AND PLAN Adore is a 49 year old with intractable epilepsy on multiple ASMs. She is admitted to the EMU for acvEEG to clarify her dx, and optimize her medications. She had an uneventful night. EEG over night was negative for epileptiform activity or seizures, however it shows diffuse slow with delta-theta semi- rhythmic slow waves. No significant changes. She complaints of left foot pain, and reports that she broke her left foot in 09/2024. Current ASM Keppra 500 mg twice daily Depakote 250 mg in the morning and 500 mg at night Primidone 200 mg twice daily. Recommendations: -Check levels of Keppra, Depakote, and Primidone -Order a foot x-ray to evaluate her left foot pain -Continue current ASM -Continuous video EEG monitoring in place -NeurocFreshBookss q4h -Telemetry monitoring in place -Seizure precautions in place - blue rail pads on all bed rails (not blankets), fall precautions -IV Ativan PRN for generalized tonic-clonic seizures and/or seizures lasting >3 minutes -We will continue to follow the patient while they are on EEG in the EMU. Anticipated discharge: 24 hours. Mee Perez NP I spent total time 50 minutes while physically present on 3N examining the patient, reviewing theirdata, counseling (coordinating care) and providing discussion regarding plan of treatment. [1] Current Facility-Administered Medications Medication Dose Route Frequency Provider Last Rate Last Admin acetaminophen (Tylenol) tablet 650 mg 650 mg Oral q6h PRN Srinivasa Luevano MD Or acetaminophen (Tylenol) suppository 650 mg 650 mg Rectal q6h PRN Srinivasa Luevano MD albuterol 108 (90 Base) MCG/ACT inhaler 2 puff 2 puff Inhalation q6h PRN Srinivasa Luevano MD allopurinol (Zyloprim) tablet 100 mg 100 mg Oral Daily Srinivasa Luevano MD 100 mg at 03/14/25 0943 amLODIPine (Norvasc) tablet 5 mg 5 mg Oral BID Srinivasa Luevano MD 5 mg at 03/14/25 0943 atorvastatin (Lipitor) tablet 20 mg 20 mg Oral Nightly Srinivasa Luevano MD 20 mg at 03/13/252104 bisacodyl (Dulcolax) suppository 10 mg 10 mg Rectal Daily PRN Srinivasa Luevano MD busPIRone (Buspar) tablet 10 mg 10 mg Oral TID Srinivasa Luevano MD 10 mg at 03/14/25 0943 calcium carbonate-cholecalciferol (Oyster Shell) 250-3 MG-MCG per tablet 1 tablet 1 tablet Oral Daily Srinivasa Luevano MD 1 tablet at 03/14/25 0959 cetirizine (ZyrTEC) tablet 5 mg 5 mg Oral Daily Srinivasa Luevano MD 5 mg at 03/14/25 0943 cholecalciferol (Vitamin D-3) tablet 2,000 Units 2,000 Units Oral Daily Srinivasa Luevano MD 2,000 Unitsat 03/14/25 0943 cloNIDine (Catapres) tablet 0.1 mg 0.1 mg Oral TID Srinivasa Luevano MD 0.1 mg at 03/14/25 0944 cyanocobalamin (Vitamin B-12) tablet 1,000 mcg 1,000 mcg Oral Daily Srinivasa Luevano MD 1,000 mcg at 03/14/25 0943 desvenlafaxine (Pristiq) 24 hr tablet 50 mg 50 mg Oral Daily Srinivasa Luevano MD 50 mg at 03/14/25 0959 divalproex (Depakote ER) 24 hr tablet 250 mg 250 mg Oral q AM Srinivasa Luevano MD And divalproex (Depakote ER) 24 hr tablet 500 mg 500 mg Oral qPM Srinivasa Luevano MD 500 mg at 03/13/25 2235 famotidine (Pepcid) tablet 20 mg 20 mg Oral BID PRN Srinivasa Luevano MD levETIRAcetam (Keppra) tablet 500 mg 500 mg Oral BID Srinivasa Luevano MD 500 mg at 03/14/25 0943 levothyroxine (Synthroid, Levoxyl) tablet 25 mcg 25 mcg Oral qAM AC Srinivasa Luevano MD 25 mcg at 03/14/25 0603 LORazepam (Ativan) tablet 1 mg 1 mg Oral See admin instructions Srinivasa Luevano MD 1 mg at 03/13/25 1432 LORazepam (Ativan) tablet 2 mg 2 mg Oral BID Srinivasa Luevano MD 2 mg at 03/14/25 0943 magnesium hydroxide (Milk of Magnesia) 400 MG/5ML suspension 30 mL 30 mL Oral Nightly PRN Srinivasa Luevano MD magnesium oxide (Mag-Ox) tablet 400 mg 400 mg Oral Daily Srinivasa Luevano MD 400 mg at 03/14/25 0942 metoprolol tartrate (Lopressor) tablet 25 mg 25 mg Oral BID Srinivasa Luevano MD 25 mg at 03/14/25 0943 ondansetron ODT (Zofran-ODT) disintegrating tablet 4 mg 4 mg Oral q8h PRN Srinivasa Luevano MD Or ondansetron (Zofran) injection 4 mg 4 mg IntraVENous q6h PRN Srinivasa Luevano MD polyethylene glycol (PEG) 3350 (Miralax) packet 17 g 17 g Oral Daily Srinivasa Luevano MD 17 g at 03/14/25 0943 potassium chloride (Klor-Con) packet 10 mEq 10 mEq Oral BID Srinivasa Luevano MD 10 mEq at 03/14/25 0942 primidone (Mysoline) tablet 200 mg 200 mg Oral BID Srinivasa Luevano MD 200 mg at 03/13/25 2107 sodium chloride 0.9 % infusion 5-250 mL/hr IntraVENous PRN Srinivasa Luevano MD sodium chloride 0.9% (NS) flush 5-40 mL 5-40 mL IntraVENous q12h Srinivasa Luevano MD sodium chloride 0.9% (NS) flush 5-40 mL 5-40 mL IntraVENous PRN Srinivasa Luevano MD Cosigned by Sohail Hernandez MD PhD at 03/15/2025 9:22 AM EDT * Roc Banegas DO - 03/14/2025 9:15 AM EDT Hospitalist Progress Note 03/14/2025 Subjective: Admit Date: 03/13/2025 PCP: Jeanie Ayala Room#: [id number]/[id number] A Chief complaint: seizure disorder BRIEF HOSPITAL COURSE: Reema Diop is a 49 y.o. female with past medical history HTN, HLD, CKD3 (Cr 1.2- 1.3), CVA hx, MELQUIADES, HFpEF (LVEF 60%), mood disorder, borderline personality disorder, psoriasis, and epilepsy who presented for routine admission for cvEEG monitoring for epilepsy workup. Interval History: No overnight issues. Denies having any events since being here and denies any new complaints Adult diet Regular 24HR INTAKE/OUTPUT: Intake/Output Summary (Last 24 hours) at 03/14/2025 0915 Last data filed at 03/14/2025 0056 Gross per 24 hour Intake 1216.66 ml Output 140 ml Net 1076.66 ml Past Medical History: Medical History[1] LABS: CBC: No results for input(s): WBC, RBC, HGB, HCT, MCV, RDW, PLT in the last 72 hours. BMP: Recent Labs 03/13/25 1512 03/14/25 0337 NA 141 138 K 4.1 4.7 CL 104 106 CO2 24 20* BUN 38* 33* CREATININE 1.65* 1.47* GLUCOSE 116* 95 CALCIUM 9.9 8.7 ANIONGAP 13 12 LIVER PROFILE: Recent Labs 03/13/25 1512 03/14/25 0337 AST 37* 31 ALT 31* 24 BILITOT 0.3 0.2 ALKPHOS 143 124 PROT 7.6 6.4 PT/INR: No results for input(s): PROTIME, INR in the last 72 hours. CARDIAC ENZYMES: No results for input(s): TROPONINI in the last 72 hours. Procalcitonin: No results found for: PROCAL COVID-19 PCR: No results for input(s): COVID19 in the last 72 hours. Objective: Vitals: BP (!) 169/86 (BP Location: Right arm, Patient Position: Sitting) Pulse 80 Temp 36.2 C (97.2 F) (Temporal) Resp 16 Ht 4' 8 (1.422 m) SpO2 94% BMI 35.20 kg/m Pulse Ox: SpO2 Av.6 % Min: 93 % Max: 96 % Supplemental O2: Physical Exam Vitals and nursing note reviewed. Constitutional: General: She is not in acute distress. Appearance: She is obese. HENT: Head: Normocephalic and atraumatic. Mouth/Throat: Mouth: Mucous membranes are moist. Eyes: Extraocular Movements: Extraocular movements intact. Cardiovascular: Rate and Rhythm: Normal rate and regular rhythm. Pulmonary: Effort: Pulmonary effort is normal. No respiratory distress. Abdominal: General: Bowel sounds are normal. There is no distension. Tenderness: There is no abdominal tenderness. Musculoskeletal: General: No swelling or tenderness. Cervical back: Neck supple. Skin: General: Skin is warm and dry. Neurological: General: No focal deficit present. Mental Status: She is alert. Psychiatric: Mood and Affect: Mood normal. Behavior: Behavior is slowed. Medications: Scheduled PRN Scheduled Meds[2] PRN Meds[3] Continuous Continuous Meds[4] Assessment Data: (CAT1) Reviewed 2 notes from different specialty or health system (each=1). (CAT1) Reviewed 2 labs/studies ordered by another provider not previously counted (each=1, panels count as 1). D/w TCC (LOW: 2x CAT1 or independent historian MOD: 3x CAT1 or 1x CAT3 EXTENSIVE: 3x CAT1 and 1x CAT3) Acute, acute on chronic, unstable/uncontrolled chronic problems/diagnoses: unspecified seizure disorder - monitor in EMU -Consult neuro/epileptology -Continuous vEEG -Bedrest with bathroom privileges with assistance only; cannot sit in chair -Neurochecks q4h -Seizure precautions - blue rail pads on all bed rails (not blankets) -Fall precautions -Ativan PRN generalized tonic clonic seizures or seizure lasting >3 minutes -Cont home keppra 500mg BID, depakote 250mg qam, 500mg qn, primidone 200mg BID -Scheduled ativan 2mg BID + 1mg prn for tremors Constipation -daily miralax + prns Stable chronic problems affecting care, new non-acute diagnoses: CKD3 - creat 1.65 --> 1.47 - avoid NSAIDs - ? Baseline creat - monitor HTN HLD HFpEF - lisinopril 20mg daily, lopressor 25mg BID, amlodipine 5mg daily, atorvastatin 20mg at bedtime Mood disorder BPD -desvenlafaxine, buspar Gout -home Allopurinol hx Hypokalemia -home kdur 20meq BID Hypothyroidism - cont synthroid 25mcg qam Plan As a result of the above findings & factors, the following mgmt was pursued: - as above - continue monitoring in EMU - am labs, replace lytes prn - PT/OT/CM/SW - delirium precautions: limit nighttime disturbances - DVT prophylaxis: enoxaparin Complexity: Multiple stable chronic illnesses (MOD). Risk: Prescription drug/IVF/colloid was initiated, discontinued, adjusted; or reviewed with decision to maintain current orders (MOD). Advance Directive: Full Code Anticipated Discharge - Date - 1-2 days - Location - [facility] - Pending the following - neurology recs Total time spent (which include face to face and non face to face encounters) : minutes Toxic drug monitoring/narrow therapeutic index drug monitoring : # Drug name : # Route administered : # Method of monitoring : Extended Emergency Contact Information Primary Emergency Contact: Ko Perea Relation: Father Culture Manager needed? No Roc Banegas DO Division of Hospitalist Medicine [employer] [1] Past Medical History: Diagnosis Date Anxiety Chronic kidney disease Epilepsy (HCC) Essential hypertension Gastro-esophageal reflux disease without esophagitis Hypokalemia Hypothyroidism Obesity Personal history of urinary (tract) infections Psoriasis Repeated falls Thrombocytopenia (HCC) [2] allopurinol, 100 mg, Oral, Daily amLODIPine, 5 mg, Oral, BID atorvastatin, 20 mg, Oral, Nightly busPIRone, 10 mg, Oral, TID calcium carbonate-cholecalciferol, 1 tablet, Oral, Daily cetirizine, 5 mg, Oral, Daily cholecalciferol, 2,000 Units, Oral, Daily cloNIDine, 0.1 mg, Oral, TID cyanocobalamin, 1,000 mcg, Oral, Daily desvenlafaxine, 50 mg, Oral, Daily divalproex, 250 mg, Oral, q AM And divalproex, 500 mg, Oral, qPM levETIRAcetam, 500 mg, Oral, BID levothyroxine, 25 mcg, Oral, qAM AC LORazepam, 1 mg, Oral, See admin instructions LORazepam, 2 mg, Oral, BID magnesium oxide, 400 mg, Oral, Daily metoprolol tartrate, 25 mg, Oral, BID polyethylene glycol (PEG) 3350, 17 g, Oral, Daily potassium chloride, 10 mEq, Oral, BID primidone, 200 mg, Oral, BID sodium chloride 0.9%, 5-40 mL, IntraVENous, q12h [3] PRN medications: acetaminophen OR acetaminophen, albuterol, bisacodyl, famotidine, magnesium hydroxide, ondansetron ODT OR ondansetron, sodium chloride, sodium chloride 0.9% [4] documented in this [facility]05-29-2025 Nurse Note* Curtis Oshea RN - 03/15/2025 12:56 PM EDT Report called and received by [employer] [facility] [id number] Nurse Note* Curtis Oshea RN - 03/15/2025 12:56 PM EDT Report called and received by [employer] documented in this [facility]SC[facility] [id number] Plan of care note* Care Plan - Curtis Oshea RN - 03/15/2025 12:31 PM EDT Problem: Knowledge Deficit Goal: Patient/family/caregiver demonstrates understanding of disease process, treatment plan, medications, and discharge instructions Outcome: Adequate for Discharge Problem: Potential for Compromised Skin Integrity Goal: Skin Integrity is Maintained or Improved Outcome: Adequate for Discharge Problem: Urinary Incontinence Goal: Perineal skin integrity is maintained or improved Outcome: Adequate for Discharge [facility] [id number] Miscellaneous Notes* Care Plan - Curtis Oshea RN - 03/15/2025 12:31 PM EDT Problem: Knowledge Deficit Goal: Patient/family/caregiver demonstrates understanding of disease process, treatment plan, medications, and discharge instructions Outcome: Adequate for Discharge Problem: Potential for Compromised Skin Integrity Goal: Skin Integrity is Maintained or Improved Outcome: Adequate for Discharge Problem: Urinary Incontinence Goal: Perineal skin integrity is maintained or improved Outcome: Adequate for Discharge * Care Coordination - Alvin Overton - 03/15/2025 12:27 PM EDT Transport requested in Roundtrip. Awaiting time confirmation. Confirmed pickup time of 2:00PM by transport [employer] at phone number . Location of facility drop off is [facility]. Facility notified via CareportIvelisse notified on secure chat. * Care Coordination - Ivelisse Duran RN - 03/15/2025 12:20 PM EDT Cont's EEG completed. Care team messaged. DC order /Mar completed. MICHAEL completed. [facility] tasked to send to transport for 2:00 PM today to return to [facility], [address] [facility] and sorter load and unload time. * Care Plan - Ruth Topete RN - 03/14/2025 11:55 PM EDT Problem: Knowledge Deficit Goal: Patient/family/caregiver demonstrates understanding of disease process, treatment plan, medications, and discharge instructions Outcome: Progressing Problem: Potential for Compromised Skin Integrity Goal: Skin Integrity is Maintained or Improved Outcome: Progressing Goal: Nutritional status is improving Outcome: Progressing Problem: Urinary Incontinence Goal: Perineal skin integrity is maintained or improved Outcome: Progressing * Care Plan - Diann Artis RN - 03/14/2025 3:40 PM EDT Problem: Knowledge Deficit Goal: Patient/family/caregiver demonstrates understanding of disease process, treatment plan, medications, and discharge instructions Outcome: Progressing Problem: Potential for Compromised Skin Integrity Goal: Skin Integrity is Maintained or Improved Outcome: Progressing Goal: Nutritional status is improving Outcome: Progressing Problem: Urinary Incontinence Goal: Perineal skin integrity is maintained or improved Outcome: Progressing * Care Coordination - Ivelisse Duran RN - 03/14/2025 2:20 PM EDT Pt has Hx of seizure disorder. Was a Direct adm for Cont's EEG. Pt is a resident @ [facility]. Called pt's father, Ko, , for Hx, no answer message left. Called the [facility] [phone], spoke w Floridalma. Plan is for DC temitope when EEG completed. WE will need to arrange transport @[place]. to follow. * Care Plan - Ruth Topete RN - 03/14/2025 3:02 AM EDT Problem: Knowledge Deficit Goal: Patient/family/caregiver demonstrates understanding of disease process, treatment plan, medications, and discharge instructions 03/14/2025 0301 by Ruth Topete RN Outcome: Progressing 03/13/20258 by Ruth Topete RN Outcome: Progressing Problem: Potential for Compromised Skin Integrity Goal: Skin Integrity is Maintained or Improved 03/14/2025 0301 by Ruth Topete RN Outcome: Progressing 03/13/2025 2218 by Ruth Topete RN Outcome: Progressing Goal: Nutritional status is improving 03/14/2025 0301 by Ruth Topete RN Outcome: Progressing 03/13/2025 2218 by Ruth Topete RN Outcome: Progressing Problem: Urinary Incontinence Goal: Perineal skin integrity is maintained or improved 03/14/2025 0301 by Ruth Topete RN Outcome: Progressing 03/13/2025 2218 by Ruth Topete RN Outcome: Progressing * Shima Stephens - Ruth Topete RN - 03/13/2025 10:18 PM EDT Problem: Knowledge Deficit Goal: Patient/family/caregiver demonstrates understanding of disease process, treatment plan, medications, and discharge instructions Outcome: Progressing Problem: Potential for Compromised Skin Integrity Goal: Skin Integrity is Maintained or Improved Outcome: Progressing Goal: Nutritional status is improving Outcome: Progressing Problem: Urinary Incontinence Goal: Perineal skin integrity is maintained or improved Outcome: Progressing documented in this [facility]05-29-2025 Note* Care Coordination - Alvin Overton - 03/15/2025 12:27 PM EDT Transport requested in Roundtrip. Awaiting time confirmation. Confirmed pickup time of 2:00PM by transport company [employer] at phone number . Location of facility drop off is [facility]. Facility notified via Ivelisse Contreras notified on secure chat. [facility] [id number] Note* Care Coordination - Alvin Overton - 03/15/2025 12:27 PM EDT Transport requested in Roundtrip. Awaiting time confirmation. Confirmed pickup time of 2:00PM by transport company [employer] at phone number . Location of facility drop off is [facility]. Facility notified via Ivelisse Contreras notified on secure chat. [facility] [id number] Note* Care Coordination - Ivelisse Duran RN - 03/15/2025 12:20 PM EDT Cont's EEG completed. Care team messaged. DC order /Mar completed. MICHAEL completed. [employer] tasked to send to transport for 2:00 PM today to return to [facility], [address] Calledfacility w picker and sorter load and unload time. [facility] [id number] Note* Care Coordination - Ivelisse Duran RN - 03/15/2025 12:20 PM EDT Cont's EEG completed. Care team messaged. DC order /Mar completed. MICHAEL completed. [facility] tasked to send to transport for 2:00 PM today to return to [facility], [address] [facility] and sorter load and unload time. [facility] [id number] Hospital Discharge instructions* Discharge Instr - MICHAEL* Curtis Oshea RN - 03/15/2025 12:13 PM EDT Images from the original note were not included. Continuity of Care Form Patient Name: Reema Shah : 1975 Admit date: 03/13/2025 Discharge date: 03/15/2025 Code Status Order: Full Code Advance Directives: N Admitting Physician: Srinivasa Luevano MD PCP: Jeanie Ayala Discharging Nurse: Curtis Oshea RN Discharging Hospital Unit/Room#: N3-346/N3-346 A Discharging Unit Emergency Contact: Extended Emergency Contact Information Primary Emergency Contact: Ko Perea Relation: Father Culture Manager needed? No Past Surgical History: Past Surgical History: Procedure Laterality Date BREAST REDUCTION Immunization History: Immunization History Administered Date(s) Administered Tdap 06/19/2019, 03/05/2020, 09/16/2023 Active Problems: Medical Problems Problem List * (Principal) Seizure disorder (CMS/HCC) (HCC) Weakness Valproic acid toxicity Overview Signed 10/25/2023 8:51 AM by Mejia Cullen MD Last Assessment & Plan: I am going to recheck some labs that were abnormal while you were in the hospital for valproic acidtoxicity and lactic acidosis. Very important you follow up with Dr. Chopra the neurologist on 03/16/2019. Vaginal bleeding Urinary tract infection Overview Signed 10/25/2023 8:51 AM by Mejia Cullen MD Comment on above: UTI Tremor Seizure-like activity (HCC) Tinea corporis Dermatophytosis Thrombocytopenia (HCC) Overview Signed 10/25/2023 8:51 AM by Mejia Cullen MD Comment on above: THROMBOCYTOPENIA Stage 3b chronic kidney disease (HCC) Overview Signed 10/25/2023 8:51 AM by Mejia Cullen MD Comment on above: STAGE 3B CHRONIC KIDNEY DISEASE - (N18.32) Scalp psoriasis Overview Signed 10/25/2023 8:51 AM by Mejia Cullen MD Last Assessment & Plan: Something like [place] Blue or head and shoulders on a regular basis. Then we add the steroid gel into the area most effected. Scalp hematoma Psychoactive substance dependence (HCC) Presence of intrauterine contraceptive device Osteopenia Obesity with body mass index 30 or greater Migraines Irregular menstrual cycle Hypothyroidism Hypomagnesemia Hypokalemia Hypocalcemia Hyperglycemia Hypercholesterolemia Hirsutism Overview Signed 10/25/2023 8:51 AM by Mejia Cullen MD Last Assessment & Plan: Patient again asks which can be done about her hirsutism have reminded her that probably that is only under the purview of a cartographic aide or plastic surgeon that could use laser to remove the hair she is already had developed. Last Assessment & Plan: Patient again asks which can be done about her hirsutism have reminded her that probably that is only under the purview of a cartographic aide or plastic surgeon that could use laser to remove the hair she is already had developed. GERD (gastroesophageal reflux disease) Overview Signed 10/25/2023 8:51 AM by Mejia Cullen MD Last Assessment & Plan: Patient continues on the pantoprazole 40 mg once a day. Have advised she do so. Might also want to consider following up with the general landscape specialist. Hiatal hernia Overview Signed 10/25/2023 8:51 AM by Mejia Cullen MD Last Assessment & Plan: Seems to be stable Generalized hyperhidrosis Generalized epilepsy (CMS/HCC) (HCC) Fracture of nasal bones, initial encounter for closed fracture Fatty liver Fall Overview Signed 10/25/2023 8:51 AM by Mejia Cullen MD Comment on above: FALL Essential hypertension, benign Overview Signed 10/25/2023 8:51 AM by Mejia Cullen MD Last Assessment & Plan: Believe your blood pressure was elevated at the ratoprinter's office today because you had not taking your Cardura as the ratoprinter thought. Your blood pressure has decreased since this morning because its time for the lisinopril to have kicked in. We will have used pickup the Cardura that should be waiting for you at your pharmacy. It is a 4 mg size pill. I would like you to break it in halfand take a half a pill twice a day that should even out the blood pressure that you have. I will see you back in about 1 month when you are done with the cardiac testing. Last Assessment & Plan: Believe your blood pressure was elevated at the ratoprinter's office today because you had not taking your Cardura as the ratoprinter thought. Your blood pressure has decreased since this morning because its time for the lisinopril to have kicked in. We will have used pickup the Cardura that should be waiting for you at your pharmacy. It is a 4 mg size pill. I would like you to break it in half and take a half a pill twice a daythat should even out the blood pressure that you have. I will see you back in about 1 month when you are done with the cardiac testing. Metabolic syndrome COVID-19 Depression with anxiety Overview Signed 10/25/2023 8:51 AM by Mejia Cullen MD Last Assessment & Plan: Normal grief involves some anxiety and symptoms of depression. Normal grief can be fairly significant for 3 months. After 3 months we then consider if change in medication is needed. Need to make sure you involve yourself and family With grief counseling if needed. Last Assessment & Plan: Normal grief involves some anxiety and symptoms of depression. Normal grief can be fairly significant for 3 months. After 3 months we then consider if change in medication is needed. Need to make sure you involve yourself and family With grief counseling if needed. Compression fracture of T5 vertebra (HCC) Overview Signed 10/25/2023 8:51 AM by Mejia Cullen MD Comment on above: COMPRESSION FRACTURE OF T5 VERTEBRA - (S22.050A) Closed head injury Chronic systolic heart failure (HCC) Chronic low back pain Pelvic pain Chest pain at rest Overview Signed 10/25/2023 8:51 AM by Mejia Cullen MD Last Assessment & Plan: Chest discomfort is atypical. Examination and EKG are unremarkable. Her cardiac risk factors are hypertension, obesity and inactivity. She also has a positive family history states mother had 3 open heart surgeries and a stent. Cholesterol status unknown we will obtain lipid profile today. In light of her moderate risk factor profile and chest pain with intermediate cardiac risk we will proceed with a stress nuclear perfusion study. She had a recent seizure couple months ago so we willdo dobutamine. She does have a mild resting tachycardia and is not on beta-blockers. Congestive heart failure-is not aware of this being an issue. No failure on exam. Mitral valve prolapse also we do not have the documentation of this. Will obtain echo. Hypertension during office visits. We are asking the nurses at her residence to check blood pressures a couple times a week. Abnormal gait Unilateral primary osteoarthritis, left knee Spondylosis without myelopathy or radiculopathy, lumbar region Recurrent falls Personal history of transient ischemic attack (TIA), and cerebral infarction without residual deficits Isolation/Infection: No active isolations No active infections Nurse Assessment: Last Vital Signs: BP 124/81 (BP Location: Left arm) Pulse 85 Temp 36.6 C (97.8 F) (Temporal) Resp 20 Ht 1.422 m (4' 8) SpO2 95% BMI 35.20 kg/m Last documented pain score (0-10 scale): Last Weight: Wt Readings from Last 1 Encounters: 12/08/24 71.2 kg (157 lb) Mental Status: MICHAEL Patient Mental Status: oriented and alert IV Access: MICHAEL IV Access: None Nursing Mobility/ADLs: Walking Total assistance Transfer Total assistance Bathing Total assistance Dressing Total assistance Toileting Total assistance Feeding Independent Blueprint Clerk Independent Med Delivery yes Wound Care Documentation and Therapy: Elimination: Continence: Bowel: yes Bladder: yes Urinary Catheter: None Colostomy/Ileostomy/Ileal Conduit: None Date of Last BM: 03/14/25 Intake/Output Summary (Last 24 hours) at 03/15/2025 1212 Last data filed at 03/15/2025 0830 Gross per 24 hour Intake 610 ml Output 150 ml Net 460 ml I/O last 3 completed shifts: In: 1576.7 [P.O.:960; IV Piggyback:616.7] Out: 290 [Urine:290] Safety Concerns: at risk for falls and history of seizures Impairments/Disabilities: none Nutrition Therapy: Current Nutrition Therapy: Oral diet: general Routes of Feeding: oral Liquids: thin liquids Daily Fluid Restriction: no Last Modified Barium Swallow with Video (Video Swallowing Test): not done Treatments at the Time of Hospital Discharge: Respiratory Treatments: NA Oxygen Therapy: is not on home oxygen therapy. Ventilator: No ventilator support Rehab Therapies: physical therapy, occupational therapy, nursing, and aide Weight Bearing Status/Restrictions: no restriction Other Medical Equipment (for information only, NOT a DME order): Wheelchair, Shower chair, Bedside cammode Other Treatments: NA Patient's personal belongings (please select all that are sent with patient): none RN SIGNATURE: MANAGEMENT/SOCIAL WORK SECTION Inpatient Status Date: 03/13/2025 Discharging to Facility/ Agency Name: [facility] Address: [id number] ([place]) Fax: Dialysis Facility (if applicable) Name: NA Address: Dialysis Schedule: Phone: Fax: Corporate Sales Manager/Dumpling Machine Operator signature: ICIAN SECTION Name: Reema Shah Prognosis: fair Condition at Discharge: stable Rehab Potential (if transferring to Rehab): Recommended Labs or Other Treatments After Discharge: Reema is a 49 y.o. female with past medical history HTN, HLD, CKD3 (Cr 1.2- 1.3), CVA hx, MELQUIADES, HFpEF (LVEF 60%), mood disorder, borderline personality disorder, psoriasis, and epilepsy She presented for routine admission for cvEEG monitoring for epilepsy workup. Acute, acute on chronic, unstable/uncontrolled chronic problems/discharge diagnoses: Seizure disorder Pt was monitored in EMU with video EEG which revealed no seizures: Continuous generalized to diffuse slowing is seen without epileptic features and not responsive to stimulation. Occasional isolated paracentral predominant sharp-slow wave complexes are seen during the awake andsleep states. The findings are consistent with a deep mesial frontal epileptogenic source superimposed on a cqlc-mn-mrqptdhu global encephalopathy nonspecific as to etiology. ASM regimen was unchanged on discharge Constipation -daily miralax + prns Stable chronic problems affecting care, new non-acute diagnoses: CKD3 - creat 1.65 --> 1.47 -> 1.28 - unknown baseline creatinine - creat improved with IVF, holding nsaids and lisinopril - avoid NSAIDs HTN HLD HFpEF - at home on lisinopril 20mg daily, lopressor 25mg BID, amlodipine 5mg daily, atorvastatin 20mg at bedtime - lisinopril was held here and BP was 120 -169/ 79-92 - resume lisinopril on DC and monitor ambulatory blood pressure and renal function Mood disorder BPD -desvenlafaxine, buspar Gout -home Allopurinol hx Hypokalemia -home kdur 20meq BID Hypothyroidism - cont synthroid 25mcg qam The individual is being admitted to a nursing facility directly from an [facility] or a unit of a hospital that is not operated by or licensed by [facility] under section 5119.14 or 5160-3-15.1 5 The individual requires the level of services provided by a nursing facility for the condition for which he or she was treated in the hospital and, Physician Certification: I certify the above information and transfer of Reema Shah is necessary for the continuing treatment of the diagnosis listed and that she requires intermediate/mentalretardation/developmental disabilities care for greater than 30 days. Update Admission H&P: No change in H&P PHYSICIAN SIGNATURE: documented in [facility]05-29-[facility]25 NoteHospitalist Discharge Summary Reema Shah : 1975 Admit date: 03/13/2025 Discharge date: 03/15/2025 Admitting Physician: Srinivasa Luevano MD Primary Care Physician: Jeanie Aayla Visit Status: inpatient Code Status: Prior BRIEF HOSPITAL COURSE: Reema is a 49 y.o. female with past medical history HTN, HLD, CKD3 (Cr 1.2-1.3), CVA hx, MELQUIADES, HFpEF (LVEF 60%), mood disorder, borderline personality disorder, psoriasis, and epilepsy She presented for routine admission for cvEEG monitoring for epilepsy workup. Acute, acute on chronic, unstable/uncontrolled chronic problems/discharge diagnoses: Seizure disorder Pt was monitored in EMU with video EEG which revealed no seizures: Continuous generalized to diffuse slowing is seen without epileptic features and not responsive to stimulation. Occasional isolated paracentral predominant sharp-slow wave complexes are seen during the awake and sleep states. The findings are consistent with a deep mesial frontal epileptogenic source superimposed on a ilbb-gf-nkarmuhw global encephalopathy nonspecific as to etiology. ASM regimen was unchanged on discharge Constipation -daily miralax + prns L toes pain - pt reports she has been having this pain for a few weeks - no erythema/edema or deformity on exam - L foot Xray with No acute osseous abnormality. - monitor outpatient Stable chronic problems affecting care, new non-acute diagnoses: CKD3 - creat 1.65 --> 1.47 -> 1.28 - unknown baseline creatinine - creat improved with IVF, holding nsaids and lisinopril - avoid NSAIDs and monitor renal function with resumed lisinopril HTN HLD HFpEF - at home on lisinopril 20mg daily, lopressor 25mg BID, amlodipine 5mg daily, atorvastatin 20mg at bedtime - lisinopril was held here and BP was 120 -169/ 79-92 - resume lisinopril on DC and monitor ambulatory blood pressure and renal function Mood disorder BPD -desvenlafaxine, buspar Gout -home Allopurinol hx Hypokalemia -home kdur 20meq BID Hypothyroidism - cont synthroid 25mcg qam Obesity BMI 35.2 - lifestyle modifications as able MELQUIADES - ensure good CPAP fit outpatient Medical History[1] Procedures: cVEEG Hospital Course: See discharge diagnoses list above and medication adjustments below in med rec.The patient is discharged in improved and stable condition. Consults: None Discharge Instructions: Diet: Activity: as tolerated Recommended Outpatient Tests: Disposition: Patient discharged in stable condition to [facility] Greater than 31 minutes spent discharging the patient and coming up with patient discharge plan. D/w RN and TCC Vitals: BP 124/81 (BP Location: Left arm) Pulse 85 Temp 36.6 ?C (97.8 ?F) (Temporal) Resp 20 Ht 4' 8 (1.422 m) SpO2 95% BMI 35.20 kg/m? Pulse Ox: SpO2 Av.3 % Min: 94 % Max: 95 % Supplemental O2: Physical Exam Vitals and nursing note reviewed. Constitutional: General: She is not in acute distress. Appearance: She is obese. HENT: Head: Normocephalic and atraumatic. Mouth/Throat: Mouth: Mucous membranes are moist. Eyes: Extraocular Movements: Extraocular movements intact. Cardiovascular: Rate and Rhythm: Normal rate and regular rhythm. Pulmonary: Effort: Pulmonary effort is normal. No respiratory distress. Abdominal: General: Bowel sounds are normal. There is no distension. Tenderness: There is no abdominal tenderness. Musculoskeletal: General: Tenderness (L toes) present. No swelling or signs of injury. Cervical back: Neck supple. Skin: General: Skin is warm and dry. Neurological: General: No focal deficit present. Mental Status: She is alert. Psychiatric: Mood and Affect: Mood normal. LABS: Recent Labs 03/13/25 1512 03/14/25 0337 03/15/25 0248 NA 141 138 138 K 4.1 4.7 4.9 CL 104 106 105 CO2 24 20* 24 BUN 38* 33* 28* CREATININE 1.65* 1.47* 1.28* GLUCOSE 116* 95 86 CALCIUM 9.9 8.7 8.9 No results for input(s): WBC, RBC, HGB, HCT, MCV, MCH, MCHC, RDW, PLT, MPV in the last 72 hours. Discharge Medications: Medication List CHANGE how you take these medications divalproex 250 MG 24 hr tablet Commonly known as: Depakote ER Take 1 tab po QAM and 2 tabs po QPM What changed: how much to take how to take this when to take this CONTINUE taking these medications allopurinol 100 MG tablet Commonly known as: Zyloprim amLODIPine 5 MG tablet Commonly known as: Norvasc atorvastatin 20 MG tablet Commonly known as: Lipitor bisacodyl 10 MG suppository Commonly known as: Dulcolax busPIRone 10 MG tablet Commonly known as: Buspar calcium carbonate 500 MG chewable tablet Commonly known as: Tums cholecalciferol 50 MCG (2000 UT) tablet Commonly known as: Vitamin D-3 cloNIDine 0.1 MG tablet Commonly known as: Catapres Cyanocobalamin ER 1000 MCG tablet controlled-release desvenlafax (more content not included)...[facility]05-29-2025 Note [facility] [address] [place] [id number] CONTINUOUS LONG-TERM VIDEO EEG MONITORING REPORT Patient Name: Reema Shah : 1975 Date of Study: 03/15/2025 Duration Recorded: 12:01:00 EEG#: [id number] DIRECTOR OF OPERATIONS FOR THERAPY: Eagle Wilkerson & Janet Curtis (student) PROVIDER REQUESTING STUDY: Dr. Hernandez REASON FOR EXAM: Evaluate for seizures DIAGNOSIS TAG: Transient Neurologic Symptoms (TNS) HISTORY: Reema Shah is a 49 y.o. female with history of significant for mood disorder, borderline personality disorder, psoriasis, and epilepsy since Jun 10, 1994 while at the [facility] when she experienced a convulsion. Previous provider ([facility]) followed her for kidney problems since age 25 now with improved renal function. She reports her last EEG was several years ago. She has been in a wheelchair for 6 years this month. Her fall frequency has worsened recently. She reports losing her balance, stating she uses a gait belt and walker. She describes her seizures as a brief left hand flexion greater than right in a dystonic posture and then her left arm shakes uncontrollably with inability to talk after stating, I think Im going into a seizure. MEDICATIONS: Current Medications[1] TECHNICAL ASPECTS: This continuous scalp EEG study with video was carried out at [facility]. Scalp electrodes were positioned in person by an agricultural research technologist, following patient education, according to the 10-20 International system of electrode placement and maintained for integrity and quality of the recording. EEG data with video was recorded continuously and digitally stored. The agricultural research technologist reviewed all automated detections and manual events and prepared the data for archiving and provider review. Referential and bipolar montages were used for review. TECHNOLOGIST NOTES: No skull or scalp defects were observed. This video-EEG monitoring was continuously monitored, 4 patients per technologist. BACKGROUND ACTIVITY: Posterior background activity: A continuous poorly organized 7 Hz, 10-50 uV rhythm was seen symmetrically over the posterior head regions bilaterally. Beta range: Fronto-centrally predominant beta range activity (15-25 Hz, 10-20 uV) was seen. Sleep: Stage N2 sleep was reached as evidenced by the appearance of vertex waves and sleep spindles seen symmetrically over the central head regions bilaterally. Normal Variants: No normal variants were identified. SLOWING: Continuous (greater than 90% of the recording) generalized to diffuse semi-rhythmical theta range (4.5-5.5 Hz, 10-100 uV) slow wave activity was seen unresponsive to stimulation. 07:22:05 LFF 1Hz HFF 70Hz Sens 10uV/mm Montage: AP Ref to AVG INTERICTAL EPILEPTIFORM ACTIVITY: Occasional isolated paracentral predominant sharp-slow wave complexes (3.5 Hz, 50-200 uV) were seen during the awake and sleep states. 06:50:29 LFF 1Hz HFF 70Hz Sens 10uV/mm Montage: AP Ref to AVG ICTAL ACTIVITY: No ictal activity was seen. NON-EPILEPTIC EVENTS: None. ACTIVATION PROCEDURES: Photic stimulation was not performed. Hyperventilation was not performed. IMPRESSION AND ACTIONS TAKEN: This continuous EEG with video is abnormal. Continuous generalized to diffuse slowing is seen without epileptic features and not responsive to stimulation. Occasional isolated paracentral predominant sharp-slow wave complexes are seen during the awake and sleep states. No seizures are observed. The findings are consistent with a deep mesial frontal epileptogenic source superimposed on a yoik-nc-snefethn global encephalopathy nonspecific as to etiology. Will discontinue video-EEG monitoring without modifying ASM regimen Sohail Hernandez MD PhD Epilepsy Attending [1] Current Facility-Administered Medications Medication Dose Route Frequency Provider Last Rate Last Admin acetaminophen (Tylenol) tablet 650 mg 650 mg Oral q6h PRN Srinivasa Luevano MD 650 mg at 03/14/25 1259 Or acetaminophen (Tylenol) suppository 650 mg 650 mg Rectal q6h PRN Srinivasa Luevano MD albuterol 108 (90 Base) MCG/ACT inhaler 2 puff 2 puff Inhalation q6h PRN Srinivasa Luevano MD allopurinol (Zyloprim) tablet 100 mg 100 mg Oral Daily Srinivasa Luevano MD 100 mg at 03/15/25 0845 amLODIPine (Norvasc) tablet 5 mg 5 mg Oral BID Srinivasa Luevano MD 5 mg at 03/15/25 0845 atorvastatin (Lipitor) tablet 20 mg 20 mg Oral Nightly Srinivasa Luevano MD 20 mg at 03/14/252008 bisacodyl (Dulcolax) suppository 10 mg 10 mg Rectal Daily PRN Srinivasa Luevano MD busPIRone (Buspar) tablet 10 mg 10 mg Oral TID Srinivasa Luevano MD 10 mg at 03/15/25 0845 calcium carbonate-cholecalciferol (Oyster Shell) 250-3 MG-MCG per tablet 1 tablet 1 tablet Oral Daily Srinivasa Luevano MD 1 tablet at 03/15/25 0847 cetirizine (ZyrTEC) tablet 5 mg 5 mg Oral Daily Srinivasa Luevano MD 5 mg at 03/15/25 0845 cholecalciferol (Vitamin D-3) tablet (more content not included)...[facility]05-29-2025 Procedure note* Sohail Hernandez MD PhD - 03/15/2025 9:16 AM EDT Images from the original note were not included. [facility] [address] [place] [id number] CONTINUOUS LONG-TERM VIDEO EEG MONITORING REPORT Patient Name: Reema Shah : 1975 Date of Study: 03/15/2025 Duration Recorded: 12:01:00 EEG#: [id number] DIRECTOR OF OPERATIONS FOR THERAPY: Eagle Wilkerson & Janet Curtis (student) PROVIDER REQUESTING STUDY: Dr. Hernandez REASON FOR EXAM: Evaluate for seizures DIAGNOSIS TAG: Transient Neurologic Symptoms (TNS) HISTORY: Reema Shah is a 49 y.o. female with history of significant for mood disorder, borderline personality disorder, psoriasis, and epilepsy since Jun 10, 1994 while at the [facility] when she experienced a convulsion. Previous provider ([facility]) followed her for kidney problems since age 25 now with improved renal function. She reports her last EEG was several years ago. She has been in a wheelchair for 6 years this month. Her fall frequency has worsened recently. She reports losing her balance, stating she uses a gait belt and walker. She describes her seizures as a brief left hand flexion greater than right in a dystonic posture and then her left arm shakes uncontrollably with inability to talk after stating, I think Im going into a seizure. MEDICATIONS: Current Medications[1] TECHNICAL ASPECTS: This continuous scalp EEG study with video was carried out at [facility]. Scalp electrodeswere positioned in person by an agricultural research technologist, following patient education, according to the 10-20 International system of electrode placement and maintained for integrity and quality of the recording. EEG data with video was recorded continuously and digitally stored. The agricultural research technologist reviewed all automated detections and manual events and prepared the data for archiving and provider review. Referential and bipolar montages were used for review. TECHNOLOGIST NOTES: No skull or scalp defects were observed. This video-EEG monitoring was continuously monitored, 4 patients per technologist. BACKGROUND ACTIVITY: Posterior background activity: A continuous poorly organized 7 Hz, 10-50 uV rhythm was seen symmetrically over the posterior head regions bilaterally. Beta range: Fronto-centrally predominant beta range activity (15-25 Hz, 10-20 uV) was seen. Sleep: Stage N2 sleep was reached as evidenced by the appearance of vertex waves and sleep spindlesseen symmetrically over the central head regions bilaterally. Normal Variants: No normal variants were identified. SLOWING: Continuous (greater than 90% of the recording) generalized to diffuse semi- rhythmical theta range (4.5-5.5 Hz, 10-100 uV) slow wave activity was seen unresponsive to stimulation. 07:22:05 LFF 1Hz HFF 70Hz Sens 10uV/mm Montage: AP Ref to AVG INTERICTAL EPILEPTIFORM ACTIVITY: Occasional isolated paracentral predominant sharp-slow wave complexes (3.5 Hz, 50-200 uV) were seenduring the awake and sleep states. 06:50:29 LFF 1Hz HFF 70Hz Sens 10uV/mm Montage: AP Ref to AVG ICTAL ACTIVITY: No ictal activity was seen. NON-EPILEPTIC EVENTS: None. ACTIVATION PROCEDURES: Photic stimulation was not performed. Hyperventilation was not performed. IMPRESSION AND ACTIONS TAKEN: This continuous EEG with video is abnormal. Continuous generalized to diffuse slowing is seen without epileptic features and not responsive to stimulation. Occasional isolated paracentral predominant sharp-slow wave complexes are seen during the awake andsleep states. No seizures are observed. The findings are consistent with a deep mesial frontal epileptogenic source superimposed on a [id number] global encephalopathy nonspecific as to etiology. Will discontinue video-EEG monitoring without modifying ASM regimen Sohail Hernandez MD PhD Epilepsy Attending [1] Current Facility-Administered Medications Medication Dose Route Frequency Provider Last Rate Last Admin acetaminophen (Tylenol) tablet 650 mg 650 mg Oral q6h PRN Srinivasa Luevano MD 650 mg at 03/14/25 1259 Or acetaminophen (Tylenol) suppository 650 mg 650 mg Rectal q6h PRN Srinivasa Luevano MD albuterol 108 (90 Base) MCG/ACT inhaler 2 puff 2 puff Inhalation q6h PRN Srinivasa Luevano MD allopurinol (Zyloprim) tablet 100 mg 100 mg Oral Daily Srinivasa Luevano MD 100 mg at 03/15/25 0845 amLODIPine (Norvasc) tablet 5 mg 5 mg Oral BID Srinivasa Luevano MD 5 mg at 03/15/25 0845 atorvastatin (Lipitor) tablet 20 mg 20 mg Oral Nightly Srinivasa Luevano MD 20 mg at 03/14/252008 bisacodyl (Dulcolax) suppository 10 mg 10 mg Rectal Daily PRN Srinivasa Luevano MD busPIRone (Buspar) tablet 10 mg 10 mg Oral TID Srinivasa Luevano MD 10 mg at 03/15/25 0845 calcium carbonate-cholecalciferol (Oyster Shell) 250-3 MG-MCG per tablet 1 tablet 1 tablet Oral Daily Srinivasa Luevano MD 1 tablet at 03/15/25 0847 cetirizine (ZyrTEC) tablet 5 mg 5 mg Oral Daily Srinivasa Luevano MD 5 mg at 03/15/25 0845 cholecalciferol (Vitamin D-3) tablet 2,000 Units 2,000 Units Oral Daily Srinivasa Luevano MD 2,000 Unitsat 03/15/25 0846 cloNIDine (Catapres) tablet 0.1 mg 0.1 mg Oral TID Srinivasa Luevano MD 0.1 mg at 03/15/25 0845 cyanocobalamin (Vitamin B-12) tablet 1,000 mcg 1,000 mcg Oral Daily Srinivasa Luevano MD 1,000 mcg at 03/15/25 0845 desvenlafaxine (Pristiq) 24 hr tablet 50 mg 50 mg Oral Daily Srinivasa Luevano MD 50 mg at 03/15/25 0847 divalproex (Depakote ER) 24 hr tablet 250 mg 250 mg Oral q AM Srinivasa Luevano MD 250 mg at 03/15/25 0846 And divalproex (Depakote ER) 24 hr tablet 500 mg 500 mg Oral qPM Srinivasa Luevano MD 500 mg at 03/14/25 1757 enoxaparin (Lovenox) syringe 40 mg 40 mg SubCUTAneous Daily Roc Kuzmin, DO 40 mg at 03/15/25 0856 famotidine (Pepcid) tablet 20 mg 20 mg Oral BID PRN Srinivasa Luevano MD levETIRAcetam (Keppra) tablet 500 mg 500 mg Oral BID Srinivasa Luevano MD 500 mg at 03/15/25 0845 levothyroxine (Synthroid, Levoxyl) tablet 25 mcg 25 mcg Oral qAM AC Srinivasa Luevano MD 25 mcg at 03/15/25 0530 LORazepam (Ativan) tablet 1 mg 1 mg Oral See admin instructions Srinivasa Luevano MD 1 mg at 03/13/25 1432 LORazepam (Ativan) tablet 2 mg 2 mg Oral BID Srinivasa Luevano MD 2 mg at 03/15/25 0845 magnesium hydroxide (Milk of Magnesia) 400 MG/5ML suspension 30 mL 30 mL Oral Nightly PRN Srinivasa Luevano MD magnesium oxide (Mag-Ox) tablet 400 mg 400 mg Oral Daily Srinivasa Luevano MD 400 mg at 03/15/25 0845 metoprolol tartrate (Lopressor) tablet 25 mg 25 mg Oral BID Srinivasa Luevano MD 25 mg at 03/15/25 0845 ondansetron ODT (Zofran-ODT) disintegrating tablet 4 mg 4 mg Oral q8h PRN Srinivasa Luevano MD Or ondansetron (Zofran) injection 4 mg 4 mg IntraVENous q6h PRN Srinivasa Luevano MD polyethylene glycol (PEG) 3350 (Miralax) packet 17 g 17 g Oral Daily Srinivasa Luevano MD 17 g at 03/15/25 0844 potassium chloride (Klor-Con) packet 10 mEq 10 mEq Oral BID Srinivasa Luevano MD 10 mEq at 03/15/25 0846 primidone (Mysoline) tablet 200 mg 200 mg Oral BID Srinivasa Luevano MD 200 mg at 03/15/25 0846 sodium chloride 0.9 % infusion 5-250 mL/hr IntraVENous PRN Srinivasa Luevano MD sodium chloride 0.9% (NS) flush 5-40 mL 5-40 mL IntraVENous q12h Srinivasa Luevano MD 10 mL at 03/15/25 0531 sodium chloride 0.9% (NS) flush 5-40 mL 5-40 mL IntraVENous PRN Srinivasa Luevano MD [facility] Work Phone: [phone] 727-107605-29-2025 Procedure note* Sohail Hernandez MD PhD - 03/15/2025 9:16 AM EDT Images from the original note were not included. [facility] [address] [place] [id number] CONTINUOUS LONG-TERM VIDEO EEG MONITORING REPORT Patient Name: Reema Shah : 1975 Date of Study: 03/15/2025 Duration Recorded: 12:01:00 EEG#: [id number] DIRECTOR OF OPERATIONS FOR THERAPY: [employer] Janet Curtis (student) PROVIDER REQUESTING STUDY: Dr. Hernandez REASON FOR EXAM: Evaluate for seizures DIAGNOSIS TAG: Transient Neurologic Symptoms (TNS) HISTORY: Reema Shah is a 49 y.o. female with history of significant for mood disorder, borderline personality disorder, psoriasis, and epilepsy since Jun 10, 1994 while at the [facility] when she experienced a convulsion. Previous provider ([facility]) followed her for kidney problems since age 25 now with improved renal function. She reports her last EEG was several years ago. She has been in a wheelchair for 6 years this month. Her fall frequency has worsened recently. She reports losing her balance, stating she uses a gait belt and walker. She describes her seizures as a brief left hand flexion greater than right in a dystonic posture and then her left arm shakes uncontrollably with inability to talk after stating, I think Im going into a seizure. MEDICATIONS: Current Medications[1] TECHNICAL ASPECTS: This continuous scalp EEG study with video was carried out at [facility]. Scalp electrodeswere positioned in person by an agricultural research technologist, following patient education, according to the 10-20 International system of electrode placement and maintained for integrity and quality of the recording. EEG data with video was recorded continuously and digitally stored. The agricultural research technologist reviewed all automated detections and manual events and prepared the data for archiving and provider review. Referential and bipolar montages were used for review. TECHNOLOGIST NOTES: No skull or scalp defects were observed. This video-EEG monitoring was continuously monitored, 4 patients per technologist. BACKGROUND ACTIVITY: Posterior background activity: A continuous poorly organized 7 Hz, 10-50 uV rhythm was seen symmetrically over the posterior head regions bilaterally. Beta range: Fronto-centrally predominant beta range activity (15-25 Hz, 10-20 uV) was seen. Sleep: Stage N2 sleep was reached as evidenced by the appearance of vertex waves and sleep spindlesseen symmetrically over the central head regions bilaterally. Normal Variants: No normal variants were identified. SLOWING: Continuous (greater than 90% of the recording) generalized to diffuse semi- rhythmical theta range (4.5-5.5 Hz, 10-100 uV) slow wave activity was seen unresponsive to stimulation. 07:22:05 LFF 1Hz HFF 70Hz Sens 10uV/mm Montage: AP Ref to AVG INTERICTAL EPILEPTIFORM ACTIVITY: Occasional isolated paracentral predominant sharp-slow wave complexes (3.5 Hz, 50-200 uV) were seenduring the awake and sleep states. 06:50:29 LFF 1Hz HFF 70Hz Sens 10uV/mm Montage: AP Ref to AVG ICTAL ACTIVITY: No ictal activity was seen. NON-EPILEPTIC EVENTS: None. ACTIVATION PROCEDURES: Photic stimulation was not performed. Hyperventilation was not performed. IMPRESSION AND ACTIONS TAKEN: This continuous EEG with video is abnormal. Continuous generalized to diffuse slowing is seen without epileptic features and not responsive to stimulation. Occasional isolated paracentral predominant sharp-slow wave complexes are seen during the awake andsleep states. No seizures are observed. The findings are consistent with a deep mesial frontal epileptogenic source superimposed on a [id number] global encephalopathy nonspecific as to etiology. Will discontinue video-EEG monitoring without modifying ASM regimen Sohail Hernandez MD PhD Epilepsy Attending [1] Current Facility-Administered Medications Medication Dose Route Frequency Provider Last Rate Last Admin acetaminophen (Tylenol) tablet 650 mg 650 mg Oral q6h PRN Srinivasa Luevano MD 650 mg at 03/14/25 1259 Or acetaminophen (Tylenol) suppository 650 mg 650 mg Rectal q6h PRN Srinivasa Luevano MD albuterol 108 (90 Base) MCG/ACT inhaler 2 puff 2 puff Inhalation q6h PRN Srinivasa Luevano MD allopurinol (Zyloprim) tablet 100 mg 100 mg Oral Daily Srinivasa Luevano MD 100 mg at 03/15/25 0845 amLODIPine (Norvasc) tablet 5 mg 5 mg Oral BID Srinivasa Luevano MD 5 mg at 03/15/25 0845 atorvastatin (Lipitor) tablet 20 mg 20 mg Oral Nightly Srinivasa Luevano MD 20 mg at 03/14/252008 bisacodyl (Dulcolax) suppository 10 mg 10 mg Rectal Daily PRN Srinivasa Luevano MD busPIRone (Buspar) tablet 10 mg 10 mg Oral TID Srinivasa Luevano MD 10 mg at 03/15/25 0845 calcium carbonate-cholecalciferol (Oyster Shell) 250-3 MG-MCG per tablet 1 tablet 1 tablet Oral Daily Srinivasa Luevano MD 1 tablet at 03/15/25 0847 cetirizine (ZyrTEC) tablet 5 mg 5 mg Oral Daily Srinivasa Luevano MD 5 mg at 03/15/25 0845 cholecalciferol (Vitamin D-3) tablet 2,000 Units 2,000 Units Oral Daily Srinivasa Luevano MD 2,000 Unitsat 03/15/25 0846 cloNIDine (Catapres) tablet 0.1 mg 0.1 mg Oral TID Srinivasa Luevano MD 0.1 mg at 03/15/25 0845 cyanocobalamin (Vitamin B-12) tablet 1,000 mcg 1,000 mcg Oral Daily Srinivasa Luevano MD 1,000 mcg at 03/15/25 0845 desvenlafaxine (Pristiq) 24 hr tablet 50 mg 50 mg Oral Daily Srinivasa Luevano MD 50 mg at 03/15/25 0847 divalproex (Depakote ER) 24 hr tablet 250 mg 250 mg Oral q AM Srinivasa Luevano MD 250 mg at 03/15/25 0846 And divalproex (Depakote ER) 24 hr tablet 500 mg 500 mg Oral qPM Srinivasa Luevano MD 500 mg at 03/14/25 1757 enoxaparin (Lovenox) syringe 40 mg 40 mg SubCUTAneous Daily Roc Kuzmin, DO 40 mg at 03/15/25 0856 famotidine (Pepcid) tablet 20 mg 20 mg Oral BID PRN Srinivasa Luevano MD levETIRAcetam (Keppra) tablet 500 mg 500 mg Oral BID Srinivasa Luevano MD 500 mg at 03/15/25 0845 levothyroxine (Synthroid, Levoxyl) tablet 25 mcg 25 mcg Oral qAM AC Srinivasa Luevano MD 25 mcg at 03/15/25 0530 LORazepam (Ativan) tablet 1 mg 1 mg Oral See admin instructions Srinivasa Luevano MD 1 mg at 03/13/25 1432 LORazepam (Ativan) tablet 2 mg 2 mg Oral BID Srinivasa Luevano MD 2 mg at 03/15/25 0845 magnesium hydroxide (Milk of Magnesia) 400 MG/5ML suspension 30 mL 30 mL Oral Nightly PRN Srinivasa Luevano MD magnesium oxide (Mag-Ox) tablet 400 mg 400 mg Oral Daily Srinivasa Luevano MD 400 mg at 03/15/25 0845 metoprolol tartrate (Lopressor) tablet 25 mg 25 mg Oral BID Srinivasa Luevano MD 25 mg at 03/15/25 0845 ondansetron ODT (Zofran-ODT) disintegrating tablet 4 mg 4 mg Oral q8h PRN Srinivasa Luevano MD Or ondansetron (Zofran) injection 4 mg 4 mg IntraVENous q6h PRN Srinivasa Luevano MD polyethylene glycol (PEG) 3350 (Miralax) packet 17 g 17 g Oral Daily Srinivasa Luevano MD 17 g at 03/15/25 0844 potassium chloride (Klor-Con) packet 10 mEq 10 mEq Oral BID Srinivasa Luevano MD 10 mEq at 03/15/25 0846 primidone (Mysoline) tablet 200 mg 200 mg Oral BID Srinivasa Luevano MD 200 mg at 03/15/25 0846 sodium chloride 0.9 % infusion 5-250 mL/hr IntraVENous PRN Srinivasa Luevano MD sodium chloride 0.9% (NS) flush 5-40 mL 5-40 mL IntraVENous q12h Srinivasa Luevano MD 10 mL at 03/15/25 0531 sodium chloride 0.9% (NS) flush 5-40 mL 5-40 mL IntraVENous PRN Srinivasa Luevano MD * Sohail Hernandez MD PhD - 03/14/2025 11:39 AM EDT Images from the original note were not included. [facility] [address] [place] [id number] CONTINUOUS LONG-TERM VIDEO EEG MONITORING REPORT Patient Name: Reema Shah : 1975 Date of Study: 03/14/2025 Duration Recorded: 23:33:07 EEG#: [id number] DIRECTOR OF OPERATIONS FOR THERAPY: [employer] (student) PROVIDER REQUESTING STUDY: Dr. Hernandez REASON FOR EXAM: Evaluate for seizures DIAGNOSIS TAG: Transient Neurologic Symptoms (TNS) HISTORY: Reema Shah is a 49 y.o. female with history of significant for mood disorder, borderline personality disorder, psoriasis, and epilepsy since Jun 10, 1994 while at the [facility] when she experienced a convulsion. Previous provider ([facility]) followed her for kidney problems since age 25 now with improved renal function. She reports her last EEG was several years ago. She has been in a wheelchair for 6 years this month. Her fall frequency has worsened recently. She reports losing her balance, stating she uses a gait belt and walker. She describes her seizures as a brief left hand flexion greater than right in a dystonic posture and then her left arm shakes uncontrollably with inability to talk after stating, I think Im going into a seizure. MEDICATIONS: Current Medications[1] TECHNICAL ASPECTS: This continuous scalp EEG study with video was carried out at [facility]. Scalp electrodeswere positioned in person by an agricultural research technologist, following patient education, according to the 10-20 International system of electrode placement and maintained for integrity and quality of the recording. EEG data with video was recorded continuously and digitally stored. The agricultural research technologist reviewed all automated detections and manual events and prepared the data for archiving and provider review. Referential and bipolar montages were used for review. TECHNOLOGIST NOTES: No skull or scalp defects were observed. This video-EEG monitoring was continuously monitored, 4 patients per technologist. BACKGROUND ACTIVITY: Posterior background activity: A continuous poorly organized 7 Hz, 10-50 uV rhythm was seen symmetrically over the posterior head regions bilaterally. Beta range: Fronto-centrally predominant beta range activity (15-25 Hz, 10-20 uV) was seen. Sleep: Stage N2 sleep was reached as evidenced by the appearance of vertex waves and sleep spindlesseen symmetrically over the central head regions bilaterally. Normal Variants: No normal variants were identified. SLOWING: Continuous (greater than 90% of the recording) generalized to diffuse semi- rhythmical theta range (4.5-5.5 Hz, 10-100 uV) slow wave activity was seen unresponsive to stimulation. 01:44:21 LFF 1Hz HFF 70Hz Sens 7uV/mm Montage: AP Ref to AVG INTERICTAL EPILEPTIFORM ACTIVITY: No epileptiform activity was seen. ICTAL ACTIVITY: No ictal activity was seen. NON-EPILEPTIC EVENTS: None. ACTIVATION PROCEDURES: Photic stimulation was not performed. Hyperventilation was not performed. IMPRESSION AND ACTIONS TAKEN: This continuous EEG with video is abnormal. Continuous generalized to diffuse slowing is seen without epileptic features and not responsive to stimulation. No seizures are observed. The findings are consistent with a moderate global encephalopathy nonspecific as to etiology. Will continue video-EEG monitoring while challenging with Benadryl 50mg IV x 1 with the goal of maximizing probability of capturing interictal epileptiform activity. Additionally, will attempt to delineate etiology of spells. Sohail Hernandez MD PhD Epilepsy Attending [1] Current Facility-Administered Medications Medication Dose Route Frequency Provider Last Rate Last Admin acetaminophen (Tylenol) tablet 650 mg 650 mg Oral q6h PRN Srinivasa Luevano MD Or acetaminophen (Tylenol) suppository 650 mg 650 mg Rectal q6h PRN Srinivasa Luevano MD albuterol 108 (90 Base) MCG/ACT inhaler 2 puff 2 puff Inhalation q6h PRN Srinivasa Luevano MD allopurinol (Zyloprim) tablet 100 mg 100 mg Oral Daily Srinivasa Luevano MD 100 mg at 03/14/25 0943 amLODIPine (Norvasc) tablet 5 mg 5 mg Oral BID Srinivasa Luevano MD 5 mg at 03/14/25 0943 atorvastatin (Lipitor) tablet 20 mg 20 mg Oral Nightly Srinivasa Luevano MD 20 mg at 03/13/252104 bisacodyl (Dulcolax) suppository 10 mg 10 mg Rectal Daily PRN Srinivasa Luevano MD busPIRone (Buspar) tablet 10 mg 10 mg Oral TID Srinivasa Luevano MD 10 mg at 03/14/25 0943 calcium carbonate-cholecalciferol (Oyster Shell) 250-3 MG-MCG per tablet 1 tablet 1 tablet Oral Daily Srinivasa Luevano MD 1 tablet at 03/14/25 0959 cetirizine (ZyrTEC) tablet 5 mg 5 mg Oral Daily Srinivasa Luevano MD 5 mg at 03/14/25 0943 cholecalciferol (Vitamin D-3) tablet 2,000 Units 2,000 Units Oral Daily Srinivasa Luevano MD 2,000 Unitsat 03/14/25 0943 cloNIDine (Catapres) tablet 0.1 mg 0.1 mg Oral TID Srinivasa Luevano MD 0.1 mg at 03/14/25 0944 cyanocobalamin (Vitamin B-12) tablet 1,000 mcg 1,000 mcg Oral Daily Srinivasa Luevano MD 1,000 mcg at 03/14/25 0943 desvenlafaxine (Pristiq) 24 hr tablet 50 mg 50 mg Oral Daily Srinivasa Luevano MD 50 mg at 03/14/25 0959 divalproex (Depakote ER) 24 hr tablet 250 mg 250 mg Oral q AM Srinivasa Luevano MD And divalproex (Depakote ER) 24 hr tablet 500 mg 500 mg Oral qPM Srinivasa Luevano MD 500 mg at 03/13/25 2235 famotidine (Pepcid) tablet 20 mg 20 mg Oral BID PRN Srinivasa Luevano MD levETIRAcetam (Keppra) tablet 500 mg 500 mg Oral BID Srinivasa Luevano MD 500 mg at 03/14/25 0943 levothyroxine (Synthroid, Levoxyl) tablet 25 mcg 25 mcg Oral qAM AC Srinivasa Luevano MD 25 mcg at 03/14/25 0603 LORazepam (Ativan) tablet 1 mg 1 mg Oral See admin instructions Srinivasa Luevano MD 1 mg at 03/13/25 1432 LORazepam (Ativan) tablet 2 mg 2 mg Oral BID Srinivasa Luevano MD 2 mg at 03/14/25 0943 magnesium hydroxide (Milk of Magnesia) 400 MG/5ML suspension 30 mL 30 mL Oral Nightly PRN Srinivasa Luevano MD magnesium oxide (Mag-Ox) tablet 400 mg 400 mg Oral Daily Srinivasa Luevano MD 400 mg at 03/14/25 0942 metoprolol tartrate (Lopressor) tablet 25 mg 25 mg Oral BID Srinivasa Luevano MD 25 mg at 03/14/25 0943 ondansetron ODT (Zofran-ODT) disintegrating tablet 4 mg 4 mg Oral q8h PRN Srinivasa Luevano MD Or ondansetron (Zofran) injection 4 mg 4 mg IntraVENous q6h PRN Srinivasa Luevano MD polyethylene glycol (PEG) 3350 (Miralax) packet 17 g 17 g Oral Daily Srinivasa Luevano MD 17 g at 03/14/25 0943 potassium chloride (Klor-Con) packet 10 mEq 10 mEq Oral BID Srinivasa Luevano MD 10 mEq at 03/14/25 0942 primidone (Mysoline) tablet 200 mg 200 mg Oral BID Srinivasa Luevano MD 200 mg at 03/13/25 2107 sodium chloride 0.9 % infusion 5-250 mL/hr IntraVENous PRN Srinivasa Luevano MD sodium chloride 0.9% (NS) flush 5-40 mL 5-40 mL IntraVENous q12h Srinivasa Luevano MD sodium chloride 0.9% (NS) flush 5-40 mL 5-40 mL IntraVENous PRN Srinivasa Luevano MD * Sohail Hernandez MD PhD - 03/13/2025 1:57 PM EDT Images from the original note were not included. [facility] [address] [place] [id number] CONTINUOUS LONG-TERM VIDEO EEG MONITORING REPORT Patient Name: Reema Shah : 1975 Date of Study: 03/13/25 Duration Recorded: 12:01:35 EEG#: [id number] DIRECTOR OF OPERATIONS FOR THERAPY: [employer] Janet Curtis (student) PROVIDER REQUESTING STUDY: Dr. Hernandez REASON FOR EXAM: Evaluate for seizures DIAGNOSIS TAG: Transient Neurologic Symptoms (TNS) HISTORY: Reema Shah is a 49 y.o. female with history of significant for mood disorder, borderline personality disorder, psoriasis, and epilepsy since Jun 10, 1994 while at the [facility] when she experienced a convulsion. Previous provider ([facility]) followed her for kidney problems since age 25 now with improved renal function. She reports her last EEG was several years ago. She has been in a wheelchair for 6 years this month. Her fall frequency has worsened recently. She reports losing her balance, stating she uses a gait belt and walker. She describes her seizures as a brief left hand flexion greater than right in a dystonic posture and then her left arm shakes uncontrollably with inability to talk after stating, I think Im going into a seizure. MEDICATIONS: Current Medications[1] TECHNICAL ASPECTS: This continuous scalp EEG study with video was carried out at [facility]. Scalp electrodeswere positioned in person by an agricultural research technologist, following patient education, according to the 10-20 International system of electrode placement and maintained for integrity and quality of the recording. EEG data with video was recorded continuously and digitally stored. The agricultural research technologist reviewed all automated detections and manual events and prepared the data for archiving and provider review. Referential and bipolar montages were used for review. TECHNOLOGIST NOTES: No skull or scalp defects were observed. This video-EEG monitoring was continuously monitored, 4 patients per technologist. BACKGROUND ACTIVITY: Posterior background activity: A continuous poorly organized 7 Hz, 10-50 uV rhythm was seen symmetrically over the posterior head regions bilaterally. Beta range: Fronto-centrally predominant beta range activity (15-25 Hz, 10-20 uV) was seen. Sleep: Stage N2 sleep was reached as evidenced by the appearance of vertex waves and sleep spindlesseen symmetrically over the central head regions bilaterally. Normal Variants: No normal variants were identified. SLOWING: Continuous (greater than 90% of the recording) generalized to diffuse semi- rhythmical theta range (4.5-5.5 Hz, 10-100 uV) slow wave activity was seen unresponsive to stimulation. 23:32:55 LFF 1Hz HFF 30Hz Sens 7uV/mm Montage: AP Ref to AVG INTERICTAL EPILEPTIFORM ACTIVITY: No epileptiform activity was seen. ICTAL ACTIVITY: No ictal activity was seen. NON-EPILEPTIC EVENTS: None. ACTIVATION PROCEDURES: Photic stimulation was not performed. Hyperventilation was not performed. IMPRESSION AND ACTIONS TAKEN: This continuous EEG with video is abnormal. Continuous generalized to diffuse slowing is seen without epileptic features and not responsive to stimulation. No seizures are observed. The findings are consistent with a moderate global encephalopathy nonspecific as to etiology. Will continue video-EEG monitoring with the goal of maximizing probability of capturing interictal epileptiform activity. Additionally, will attempt to delineate etiology of spells. Sohail Hernandez MD PhD Epilepsy Attending [1] Current Facility-Administered Medications Medication Dose Route Frequency Provider Last Rate Last Admin acetaminophen (Tylenol) tablet 650 mg 650 mg Oral q6h PRN Srinivasa Luevano MD Or acetaminophen (Tylenol) suppository 650 mg 650 mg Rectal q6h PRN Srinivasa Luevano MD albuterol 108 (90 Base) MCG/ACT inhaler 2 puff 2 puff Inhalation q6h PRN Srinivasa Luevano MD allopurinol (Zyloprim) tablet 100 mg 100 mg Oral Daily Srinivasa Luevano MD amLODIPine (Norvasc) tablet 5 mg 5 mg Oral Daily Srinivasa Luevano MD atorvastatin (Lipitor) tablet 20 mg 20 mg Oral Nightly Srinivasa Luevano MD bisacodyl (Dulcolax) suppository 10 mg 10 mg Rectal Daily PRN Srinivasa Luevano MD busPIRone (Buspar) tablet 10 mg 10 mg Oral TID Srinivasa Luevano MD [START ON 03/14/2025] calcium carbonate-cholecalciferol (Oyster Shell) 250-3.125 MG-MCG per tablet 1tablet 1 tablet Oral Daily Srinivasa Luevano MD cetirizine (ZyrTEC) tablet 5 mg 5 mg Oral Daily Srinivasa Luevano MD cholecalciferol (Vitamin D-3) tablet 2,000 Units 2,000 Units Oral Daily Srinivasa Luevano MD cyanocobalamin (Vitamin B-12) tablet 1,000 mcg 1,000 mcg Oral Daily Srinivasa Luevano MD [START ON 03/14/2025] desvenlafaxine (Pristiq) 24 hr tablet 50 mg 50 mg Oral Daily Srinivasa Luevano MD [START ON 03/14/2025] divalproex (Depakote ER) 24 hr tablet 250 mg 250 mg Oral q AM Srinivasa Luevano MD And divalproex (Depakote ER) 24 hr tablet 500 mg 500 mg Oral qPM Srinivasa Luevano MD famotidine (Pepcid) tablet 20 mg 20 mg Oral BID PRN Srinivasa Luevano MD levETIRAcetam (Keppra) tablet 500 mg 500 mg Oral BID Srinivasa Luevano MD [START ON 03/14/2025] levothyroxine (Synthroid, Levoxyl) tablet 25 mcg 25 mcg Oral qAM AC Srinivasa Luevano MD [START ON 03/14/2025] lisinopril tablet 20 mg 20 mg Oral Daily Srinivasa Luevano MD LORazepam (Ativan) tablet 1 mg 1 mg Oral See admin instructions Srinivasa Luevano MD LORazepam (Ativan) tablet 2 mg 2 mg Oral BID Srinivasa Luevano MD magnesium hydroxide (Milk of Magnesia) 400 MG/5ML suspension 30 mL 30 mL Oral Nightly PRN Srinivasa Luevano MD magnesium oxide (Mag-Ox) tablet 400 mg 400 mg Oral Daily Srinivasa Luevano MD metoprolol tartrate (Lopressor) tablet 25 mg 25 mg Oral BID Srinivasa Luevano MD ondansetron ODT (Zofran-ODT) disintegrating tablet 4 mg 4 mg Oral q8h PRN Srinivasa Luevano MD Or ondansetron (Zofran) injection 4 mg 4 mg IntraVENous q6h PRN Srinivsaa Luevano MD polyethylene glycol (PEG) 3350 (Miralax) packet 17 g 17 g Oral Daily Srinivasa Luevano MD potassium chloride (Klor-Con) packet 20 mEq 20 mEq Oral BID Srinivasa Luevano MD primidone (Mysoline) tablet 200 mg 200 mg Oral BID Srinivasa Luevano MD sodium chloride 0.9 % infusion 5-250 mL/hr IntraVENous PRN Srinivasa Luevano MD sodium chloride 0.9% (NS) flush 5-40 mL 5-40 mL IntraVENous q12h Srinivasa Luevano MD sodium chloride 0.9% (NS) flush 5-40 mL 5-40 mL IntraVENous PRN Srinivasa Luevano MD documented in this [facility]05-28-2025 Plan of care note* Care Plan - Ruth Topete RN - 03/14/2025 11:55 PM EDT Problem: Knowledge Deficit Goal: Patient/family/caregiver demonstrates understanding of disease process, treatment plan, medications, and discharge instructions Outcome: Progressing Problem: Potential for Compromised Skin Integrity Goal: Skin Integrity is Maintained or Improved Outcome: Progressing Goal: Nutritional status is improving Outcome: Progressing Problem: Urinary Incontinence Goal: Perineal skin integrity is maintained or improved Outcome: Progressing [facility] [id number] Plan of care note* Care Plan - Diann Artis RN - 03/14/2025 3:40 PM EDT Problem: Knowledge Deficit Goal: Patient/family/caregiver demonstrates understanding of disease process, treatment plan, medications, and discharge instructions Outcome: Progressing Problem: Potential for Compromised Skin Integrity Goal: Skin Integrity is Maintained or Improved Outcome: Progressing Goal: Nutritional status is improving Outcome: Progressing Problem: Urinary Incontinence Goal: Perineal skin integrity is maintained or improved Outcome: Progressing [facility] [id number] Note* Care Coordination - Ivelisse Duran RN - 03/14/2025 2:20 PM EDT Pt has Hx of seizure disorder. Was a Direct adm for Cont's EEG. Pt is a resident @ [facility]. Called pt's father, Ko, , for Hx, no answer message left. Called the [facility] [phone], spoke shannon Hedrick. Plan is for DC temitope when EEG completed. WE will need to arrange transport @[place]. to follow. [facility] [id number] Note* Care Coordination - Ivelisse Duran RN - 03/14/2025 2:20 PM EDT Pt has Hx of seizure disorder. Was a Direct adm for Cont's EEG. Pt is a resident @ [facility]. Called pt's father, Ko, , for Hx, no answer message left. Called the [facility] [phone], spoke w Floridalma. Plan is for DC temitope when EEG completed. WE will need to arrange transport @[place]. to follow. [facility] [id number] NoteDepartment of Neurological Sciences Section of Epilepsy PROGRESS NOTE ID: Reema Shah is a 49 y.o. female with history of mood disorder, borderline personality disorder, psoriasis, and epilepsy since Jun 10, 1994 while at the [facility] when she experienced a convulsion. She is admitted for a diagnostic cvEEG. INTERVAL EVENTS: No new events overnight. EEG over night was negative for epileptiform activity or seizures, however it shows diffuse slow with delta-theta semi-rhythmic slow waves. No significant changes. She complaints of left foot pain, and reports that she broke her left foot in 09/2024. OBJECTIVE: Current Medications[1] PHYSICAL EXAM: BP (!) 169/86 (BP Location: Right arm, Patient Position: Sitting) Pulse 80 Temp 36.2 ?C (97.2 ?F) (Temporal) Resp 16 Ht 4' 8 (1.422 m) SpO2 94% BMI 35.20 kg/m? Physical Exam NEUROLOGIC: Mental status: The patient was in no distress, alert, interactive and cooperative. Affect is appropriate. Language is intact to naming, repetition, and comprehension. Memory intact to recent and remote events. Cranial nerve II: Visual giron intact to finger counting. Cranial nerves III, IV, and : Pupils are equal, round, and reactive to light; no ptosis. EOMs intact. No nystagmus. Cranial Nerve V: Intact to light touch symmetrically throughout the face in all distributions. Cranial nerve VII: Normal and symmetric facial strength. Cranial nerve VIII: Hearing is intact bilaterally to voice. Cranial nerves IX and X: Palate elevates symmetrically. Cranial nerve XI: Shoulder shrug and neck rotation strength are intact. Cranial nerve XII: Tongue midline with normal movement. Motor: Moves all 4 limbs briskly against gravity. Strength is 5-/5 throughout the upper and lower extremities, with decreased strength and ROM of left foot. Deep Tendon Reflexes: 2+ throughout the upper and lower extremities. Sensory Exam: Intact to light touch, vibration, and pinprick throughout the upper and lower extremities. Coordination: No dysmetria on pvivgf-snaq-hctqki or uspl-ftmz-gywu testing. Rapid alternating movements without dysdiadochokinesia. Gait: Able to rise from a chair without using their bilateral upper extremities. Normal stride length and speed. DATA reviewed ASSESSMENT AND PLAN Adore is a 49 year old with intractable epilepsy on multiple ASMs. She is admitted to the EMU for a cvEEG to clarify her dx, and optimize her medications. She had an uneventful night. EEG over night was negative for epileptiform activity or seizures, however it shows diffuse slow with delta-theta semi-rhythmic slow waves. No significant changes. She complaints of left foot pain, and reports that she broke her left foot in 09/2024. Current ASM Keppra 500 mg twice daily Depakote 250 mg in the morning and 500 mg at night Primidone 200 mg twice daily. Recommendations: -Check levels of Keppra, Depakote, and Primidone -Order a foot x-ray to evaluate her left foot pain -Continue current ASM -Continuous video EEG monitoring in place -Neurochecks q4h -Telemetry monitoring in place -Seizure precautions in place - blue rail pads on all bed rails (not blankets), fall precautions -IV Ativan PRN for generalized tonic-clonic seizures and/or seizures lasting >3 minutes -We will continue to follow the patient while they are on EEG in the EMU. Anticipated discharge: 24 hours. Mee Perez NP I spent total time 50 minutes while physically present on 3N examining the patient, reviewing their data, counseling (coordinating care) and providing discussion regarding plan of treatment. [1] Current Facility-Administered Medications Medication Dose Route Frequency Provider Last Rate Last Admin acetaminophen (Tylenol) tablet 650 mg 650 mg Oral q6h PRN Srinivasa Luevano MD Or acetaminophen (Tylenol) suppository 650 mg 650 mg Rectal q6h PRN Srinivasa Luevano MD albuterol 108 (90 Base) MCG/ACT inhaler 2 puff 2 puff Inhalation q6h PRN Srinivasa Luevano MD allopurinol (Zyloprim) tablet 100 mg 100 mg Oral Daily Srinivasa Luevano MD 100 mg at 03/14/25 0943 amLODIPine (Norvasc) tablet 5 mg 5 mg Oral BID Srinivasa Luevano MD 5 mg at 03/14/25 0943 atorvastatin (Lipitor) tablet 20 mg 20 mg Oral Nightly Srinivasa Luevano MD 20 mg at 03/13/252104 bisacodyl (Dulcolax) suppository 10 mg 10 mg Rectal Daily PRN Srinivasa Luevano MD busPIRone (Buspar) tablet 10 mg 10 mg Oral TID Srinivasa Luevano MD 10 mg at 03/14/25 0943 calcium carbonate-cholecalciferol (Oyster Shell) 250-3 MG-MCG per tablet 1 tablet 1 tablet Oral Daily Srinivasa Luevano MD 1 tablet at 03/14/25 0959 cetirizine (ZyrTEC) tablet 5 mg 5 mg Oral Daily Srinivasa Luevano MD 5 mg at 03/14/25 0943 cholecalciferol (Vitamin D-3) tablet 2,000 Units 2,000 Units Oral Daily Srinivasa Luevano MD 2,000 Units at 03/14/25 0943 cloNIDine (Catapres) tablet 0.1 mg 0.1 mg Oral TID Srinivasa Luevano MD 0.1 mg at 03/14/25 0944 cyanocobalamin (Vitamin B-12) tablet (more content not included)...[facility]05-28-2025 [facility] EPILEPSY CENTER & EEG LABORATORY [address] [place] [address] CONTINUOUS LONG-TERM VIDEO EEG MONITORING REPORT Patient Name: Reema Shah : 1975 Date of Study: 03/14/2025 Duration Recorded: 23:33:07 EEG#: [id number] DIRECTOR OF OPERATIONS FOR THERAPY: [employer] & Janet Curtis (student) PROVIDER REQUESTING STUDY: Dr. Hernandez REASON FOR EXAM: Evaluate for seizures DIAGNOSIS TAG: Transient Neurologic Symptoms (TNS) HISTORY: Reema Shah is a 49 y.o. female with history of significant for mood disorder, borderline personality disorder, psoriasis, and epilepsy since Jun 10, 1994 while at the [facility] when she experienced a convulsion. Previous provider ([facility]) followed her for kidney problems since age 25 now with improved renal function. She reports her last EEG was several years ago. She has been in a wheelchair for 6 years this month. Her fall frequency has worsened recently. She reports losing her balance, stating she uses a gait belt and walker. She describes her seizures as a brief left hand flexion greater than right in a dystonic posture and then her left arm shakes uncontrollably with inability to talk after stating, I think Im going into a seizure. MEDICATIONS: Current Medications[1] TECHNICAL ASPECTS: This continuous scalp EEG study with video was carried out at [facility]. Scalp electrodes were positioned in person by an agricultural research technologist, following patient education, according to the 10-20 International system of electrode placement and maintained for integrity and quality of the recording. EEG data with video was recorded continuously and digitally stored. The agricultural research technologist reviewed all automated detections and manual events and prepared the data for archiving and provider review. Referential and bipolar montages were used for review. TECHNOLOGIST NOTES: No skull or scalp defects were observed. This video-EEG monitoring was continuously monitored, 4 patients per technologist. BACKGROUND ACTIVITY: Posterior background activity: A continuous poorly organized 7 Hz, 10-50 uV rhythm was seen symmetrically over the posterior head regions bilaterally. Beta range: Fronto-centrally predominant beta range activity (15-25 Hz, 10-20 uV) was seen. Sleep: Stage N2 sleep was reached as evidenced by the appearance of vertex waves and sleep spindles seen symmetrically over the central head regions bilaterally. Normal Variants: No normal variants were identified. SLOWING: Continuous (greater than 90% of the recording) generalized to diffuse semi-rhythmical theta range (4.5-5.5 Hz, 10-100 uV) slow wave activity was seen unresponsive to stimulation. 01:44:21 LFF 1Hz HFF 70Hz Sens 7uV/mm Montage: AP Ref to AVG INTERICTAL EPILEPTIFORM ACTIVITY: No epileptiform activity was seen. ICTAL ACTIVITY: No ictal activity was seen. NON-EPILEPTIC EVENTS: None. ACTIVATION PROCEDURES: Photic stimulation was not performed. Hyperventilation was not performed. IMPRESSION AND ACTIONS TAKEN: This continuous EEG with video is abnormal. Continuous generalized to diffuse slowing is seen without epileptic features and not responsive to stimulation. No seizures are observed. The findings are consistent with a moderate global encephalopathy nonspecific as to etiology. Will continue video-EEG monitoring while challenging with Benadryl 50mg IV x 1 with the goal of maximizing probability of capturing interictal epileptiform activity. Additionally, will attempt to delineate etiology of spells. Sohail Hernandez MD PhD Epilepsy Attending [1] Current Facility-Administered Medications Medication Dose Route Frequency Provider Last Rate Last Admin acetaminophen (Tylenol) tablet 650 mg 650 mg Oral q6h PRN Srinivasa Luevano MD Or acetaminophen (Tylenol) suppository 650 mg 650 mg Rectal q6h PRN Srinivasa Luevano MD albuterol 108 (90 Base) MCG/ACT inhaler 2 puff 2 puff Inhalation q6h PRN Srinivasa Luevano MD allopurinol (Zyloprim) tablet 100 mg 100 mg Oral Daily Srinivasa Luevano MD 100 mg at 03/14/25 0943 amLODIPine (Norvasc) tablet 5 mg 5 mg Oral BID Srinivasa Luevano MD 5 mg at 03/14/25 0943 atorvastatin (Lipitor) tablet 20 mg 20 mg Oral Nightly Srinivasa Luevano MD 20 mg at 03/13/25 210 bisacodyl (Dulcolax) suppository 10 mg 10 mg Rectal Daily PRN Srinivasa Luevano MD busPIRone (Buspar) tablet 10 mg 10 mg Oral TID Srinivasa Luevano MD 10 mg at 03/14/25 0943 calcium carbonate-cholecalciferol (Oyster Shell) 250-3 MG-MCG per tablet 1 tablet 1 tablet Oral Daily Srinivasa Luevano MD 1 tablet at 03/14/25 0959 cetirizine (ZyrTEC) tablet 5 mg 5 mg Oral Daily Srinivaas Luevano MD 5 mg at 03/14/25 0943 cholecalciferol (Vitamin D-3) tablet 2,000 Units 2,000 Units Oral Daily Srinivasa Luevano MD 2,000 Units at 03/14/25 0943 cloNIDine (Catapres) tablet 0.1 mg 0.1 mg Oral TID Srinivasa Luevano MD 0.1 mg at 03/14/25 0944 cyanocobalamin (Vitamin B-12) tablet 1 (more content not included)...[facility]05-28-2025 Procedure note* Sohail Hernandez MD PhD - 03/14/2025 11:39 AM EDT Images from the original note were not included. [facility] EPILEPSY CENTER & EEG LABORATORY [address] [place] [id number] CONTINUOUS LONG-TERM VIDEO EEG MONITORING REPORT Patient Name: Reema Shah : 1975 Date of Study: 03/14/2025 Duration Recorded: 23:33:07 EEG#: [id number] DIRECTOR OF OPERATIONS FOR THERAPY: [employer] & Janet Curtis (student) PROVIDER REQUESTING STUDY: Dr. Hernandez REASON FOR EXAM: Evaluate for seizures DIAGNOSIS TAG: Transient Neurologic Symptoms (TNS) HISTORY: Reema Shah is a 49 y.o. female with history of significant for mood disorder, borderline personality disorder, psoriasis, and epilepsy since Jun 10, 1994 while at the [facility] when she experienced a convulsion. Previous provider ([facility]) followed her for kidney problems since age 25 now with improved renal function. She reports her last EEG was several years ago. She has been in a wheelchair for 6 years this month. Her fall frequency has worsened recently. She reports losing her balance, stating she uses a gait belt and walker. She describes her seizures as a brief left hand flexion greater than right in a dystonic posture and then her left arm shakes uncontrollably with inability to talk after stating, I think Im going into a seizure. MEDICATIONS: Current Medications[1] TECHNICAL ASPECTS: This continuous scalp EEG study with video was carried out at [facility]. Scalp electrodeswere positioned in person by an agricultural research technologist, following patient education, according to the 10-20 International system of electrode placement and maintained for integrity and quality of the recording. EEG data with video was recorded continuously and digitally stored. The agricultural research technologist reviewed all automated detections and manual events and prepared the data for archiving and provider review. Referential and bipolar montages were used for review. TECHNOLOGIST NOTES: No skull or scalp defects were observed. This video-EEG monitoring was continuously monitored, 4 patients per technologist. BACKGROUND ACTIVITY: Posterior background activity: A continuous poorly organized 7 Hz, 10-50 uV rhythm was seen symmetrically over the posterior head regions bilaterally. Beta range: Fronto-centrally predominant beta range activity (15-25 Hz, 10-20 uV) was seen. Sleep: Stage N2 sleep was reached as evidenced by the appearance of vertex waves and sleep spindlesseen symmetrically over the central head regions bilaterally. Normal Variants: No normal variants were identified. SLOWING: Continuous (greater than 90% of the recording) generalized to diffuse semi- rhythmical theta range (4.5-5.5 Hz, 10-100 uV) slow wave activity was seen unresponsive to stimulation. 01:44:21 LFF 1Hz HFF 70Hz Sens 7uV/mm Montage: AP Ref to AVG INTERICTAL EPILEPTIFORM ACTIVITY: No epileptiform activity was seen. ICTAL ACTIVITY: No ictal activity was seen. NON-EPILEPTIC EVENTS: None. ACTIVATION PROCEDURES: Photic stimulation was not performed. Hyperventilation was not performed. IMPRESSION AND ACTIONS TAKEN: This continuous EEG with video is abnormal. Continuous generalized to diffuse slowing is seen without epileptic features and not responsive to stimulation. No seizures are observed. The findings are consistent with a moderate global encephalopathy nonspecific as to etiology. Will continue video-EEG monitoring while challenging with Benadryl 50mg IV x 1 with the goal of maximizing probability of capturing interictal epileptiform activity. Additionally, will attempt to delineate etiology of spells. Sohail Hernandez MD PhD Epilepsy Attending [1] Current Facility-Administered Medications Medication Dose Route Frequency Provider Last Rate Last Admin acetaminophen (Tylenol) tablet 650 mg 650 mg Oral q6h PRN Srinivasa Luevano MD Or acetaminophen (Tylenol) suppository 650 mg 650 mg Rectal q6h PRN Srinivasa Luevano MD albuterol 108 (90 Base) MCG/ACT inhaler 2 puff 2 puff Inhalation q6h PRN Srinivasa Luevano MD allopurinol (Zyloprim) tablet 100 mg 100 mg Oral Daily Srinivasa Luevano MD 100 mg at 03/14/25 0943 amLODIPine (Norvasc) tablet 5 mg 5 mg Oral BID Srinivasa Luevano MD 5 mg at 03/14/25 0943 atorvastatin (Lipitor) tablet 20 mg 20 mg Oral Nightly Srinivasa Luevano MD 20 mg at 03/13/252104 bisacodyl (Dulcolax) suppository 10 mg 10 mg Rectal Daily PRN Srinivasa Luevano MD busPIRone (Buspar) tablet 10 mg 10 mg Oral TID Srinivasa Luevano MD 10 mg at 03/14/25 0943 calcium carbonate-cholecalciferol (Oyster Shell) 250-3 MG-MCG per tablet 1 tablet 1 tablet Oral Daily Srinivasa Luevano MD 1 tablet at 03/14/25 0959 cetirizine (ZyrTEC) tablet 5 mg 5 mg Oral Daily Srinivasa Luevano MD 5 mg at 03/14/25 09 cholecalciferol (Vitamin D-3) tablet 2,000 Units 2,000 Units Oral Daily Srinivasa Luevano MD 2,000 Unitsat 03/14/25 0943 cloNIDine (Catapres) tablet 0.1 mg 0.1 mg Oral TID Srinivasa Luevano MD 0.1 mg at 03/14/25 0944 cyanocobalamin (Vitamin B-12) tablet 1,000 mcg 1,000 mcg Oral Daily Srinivasa Luevano MD 1,000 mcg at 03/14/25 0943 desvenlafaxine (Pristiq) 24 hr tablet 50 mg 50 mg Oral Daily Srinivasa Luevano MD 50 mg at 03/14/25 0959 divalproex (Depakote ER) 24 hr tablet 250 mg 250 mg Oral q AM Srinivasa Luevano MD And divalproex (Depakote ER) 24 hr tablet 500 mg 500 mg Oral qPM Srinivasa Luevano MD 500 mg at 03/13/25 223 famotidine (Pepcid) tablet 20 mg 20 mg Oral BID PRN Srinivasa Luevano MD levETIRAcetam (Keppra) tablet 500 mg 500 mg Oral BID Srinivasa Luevano MD 500 mg at 03/14/25 09 levothyroxine (Synthroid, Levoxyl) tablet 25 mcg 25 mcg Oral qAM AC Srinivasa Luevano MD 25 mcg at 03/14/25 06 LORazepam (Ativan) tablet 1 mg 1 mg Oral See admin instructions Srinivasa Luevano MD 1 mg at 03/13/25 1432 LORazepam (Ativan) tablet 2 mg 2 mg Oral BID Srinivasa Luevano MD 2 mg at 03/14/25 0943 magnesium hydroxide (Milk of Magnesia) 400 MG/5ML suspension 30 mL 30 mL Oral Nightly PRN Srinivasa Luevano MD magnesium oxide (Mag-Ox) tablet 400 mg 400 mg Oral Daily Srinivasa Luevano MD 400 mg at 03/14/25 0942 metoprolol tartrate (Lopressor) tablet 25 mg 25 mg Oral BID Srinivasa Luevano MD 25 mg at 03/14/25 0943 ondansetron ODT (Zofran-ODT) disintegrating tablet 4 mg 4 mg Oral q8h PRN Srinivasa Luevano MD Or ondansetron (Zofran) injection 4 mg 4 mg IntraVENous q6h PRN Srinivasa Luevano MD polyethylene glycol (PEG) 3350 (Miralax) packet 17 g 17 g Oral Daily Srinivasa Luevano MD 17 g at 03/14/25 0943 potassium chloride (Klor-Con) packet 10 mEq 10 mEq Oral BID Srinivasa Luevano MD 10 mEq at 03/14/25 0942 primidone (Mysoline) tablet 200 mg 200 mg Oral BID Srinivasa Luevano MD 200 mg at 03/13/25 2107 sodium chloride 0.9 % infusion 5-250 mL/hr IntraVENous PRN Srinivasa Luevano MD sodium chloride 0.9% (NS) flush 5-40 mL 5-40 mL IntraVENous q12h Srinivasa Luevano MD sodium chloride 0.9% (NS) flush 5-40 mL 5-40 mL IntraVENous PRN Srinivasa Luevano MD [facility] [id number] NoteHospitalist Progress Note 03/14/2025 Subjective: Admit Date: 03/13/2025 PCP: Jeanie Ayala Room#: [id number] Chief complaint: seizure disorder BRIEF HOSPITAL COURSE: Reema Diop is a 49 y.o. female with past medical history HTN, HLD, CKD3 (Cr 1.2-1.3), CVA hx, MELQUIADES, HFpEF (LVEF 60%), mood disorder, borderline personality disorder, psoriasis, and epilepsy who presented for routine admission for cvEEG monitoring for epilepsy workup. Interval History: No overnight issues. Denies having any events since being here and denies any new complaints Adult diet Regular 24HR INTAKE/OUTPUT: Intake/Output Summary (Last 24 hours) at 03/14/2025 0915 Last data filed at 03/14/2025 0056 Gross per 24 hour Intake 1216.66 ml Output 140 ml Net 1076.66 ml Past Medical History: Medical History[1] LABS: CBC: No results for input(s): WBC, RBC, HGB, HCT, MCV, RDW, PLT in the last 72 hours. BMP: Recent Labs 03/13/25 1512 03/14/25 0337 NA 141 138 K 4.1 4.7 CL 104 106 CO2 24 20* BUN 38* 33* CREATININE 1.65* 1.47* GLUCOSE 116* 95 CALCIUM 9.9 8.7 ANIONGAP 13 12 LIVER PROFILE: Recent Labs 03/13/25 1512 03/14/25 0337 AST 37* 31 ALT 31* 24 BILITOT 0.3 0.2 ALKPHOS 143 124 PROT 7.6 6.4 PT/INR: No results for input(s): PROTIME, INR in the last 72 hours. CARDIAC ENZYMES: No results for input(s): TROPONINI in the last 72 hours. Procalcitonin: No results found for: PROCAL COVID-19 PCR: No results for input(s): COVID19 in the last 72 hours. Objective: Vitals: BP (!) 169/86 (BP Location: Right arm, Patient Position: Sitting) Pulse 80 Temp 36.2 ?C (97.2 ?F) (Temporal) Resp 16 Ht 4' 8 (1.422 m) SpO2 94% BMI 35.20 kg/m? Pulse Ox: SpO2 Av.6 % Min: 93 % Max: 96 % Supplemental O2: Physical Exam Vitals and nursing note reviewed. Constitutional: General: She is not in acute distress. Appearance: She is obese. HENT: Head: Normocephalic and atraumatic. Mouth/Throat: Mouth: Mucous membranes are moist. Eyes: Extraocular Movements: Extraocular movements intact. Cardiovascular: Rate and Rhythm: Normal rate and regular rhythm. Pulmonary: Effort: Pulmonary effort is normal. No respiratory distress. Abdominal: General: Bowel sounds are normal. There is no distension. Tenderness: There is no abdominal tenderness. Musculoskeletal: General: No swelling or tenderness. Cervical back: Neck supple. Skin: General: Skin is warm and dry. Neurological: General: No focal deficit present. Mental Status: She is alert. Psychiatric: Mood and Affect: Mood normal. Behavior: Behavior is slowed. Medications: Scheduled PRN Scheduled Meds[2] PRN Meds[3] Continuous Continuous Meds[4] Assessment Data: (CAT1) Reviewed 2 notes from different specialty or health system (each=1). (CAT1) Reviewed 2 labs/studies ordered by another provider not previously counted (each=1, panels count as 1). D/w TCC (LOW: 2x CAT1 or independent historian MOD: 3x CAT1 or 1x CAT3 EXTENSIVE: 3x CAT1 and 1x CAT3) Acute, acute on chronic, unstable/uncontrolled chronic problems/diagnoses: unspecified seizure disorder - monitor in EMU -Consult neuro/epileptology -Continuous vEEG -Bedrest with bathroom privileges with assistance only; cannot sit in chair -Neurochecks q4h -Seizure precautions - blue rail pads on all bed rails (not blankets) -Fall precautions -Ativan PRN generalized tonic clonic seizures or seizure lasting >3 minutes -Cont home keppra 500mg BID, depakote 250mg qam, 500mg qn, primidone 200mg BID -Scheduled ativan 2mg BID + 1mg prn for tremors Constipation -daily miralax + prns Stable chronic problems affecting care, new non-acute diagnoses: CKD3 - creat 1.65 --> 1.47 - avoid NSAIDs - ? Baseline creat - monitor HTN HLD HFpEF - lisinopril 20mg daily, lopressor 25mg BID, amlodipine 5mg daily, atorvastatin 20mg at bedtime Mood disorder BPD -desvenlafaxine, buspar Gout -home Allopurinol hx Hypokalemia -home kdur 20meq BID Hypothyroidism - cont synthroid 25mcg qam Plan As a result of the above findings & factors, the following mgmt was pursued: - as above - continue monitoring in EMU - am labs, replace lytes prn - PT/OT/CM/SW - delirium precautions: limit nighttime disturbances - DVT prophylaxis: enoxaparin Complexity: Multiple stable chronic illnesses (MOD). Risk: Prescription drug/IVF/colloid was initiated, discontinued, adjusted; or reviewed with decision to maintain current orders (MOD). Advance Directive: Full Code Anticipated Discharge - Date - 1-2 days - Location - [facility] - Pending the following - neurology recs Total time spent (which include face to face and non face to face encounters) : minutes Toxic drug monitoring/narrow therapeutic index drug monitoring : # Drug name : # Route administered : # Method of monitoring : Extended Emerge (more content not included)...[facility]05-28-2025 Plan of care note* Care Plan - Ruth Topete RN - 03/14/2025 3:02 AM EDT Problem: Knowledge Deficit Goal: Patient/family/caregiver demonstrates understanding of disease process, treatment plan, medications, and discharge instructions 03/14/2025 0301 by Ruth Topete RN Outcome: Progressing 03/13/20252217 by Ruth Topete RN Outcome: Progressing Problem: Potential for Compromised Skin Integrity Goal: Skin Integrity is Maintained or Improved 03/14/2025 0301 by Ruth Topete RN Outcome: Progressing 03/13/20252217 by Ruth Topete RN Outcome: Progressing Goal: Nutritional status is improving 03/14/2025 0301 by Ruth Topete RN Outcome: Progressing 03/13/20252217 by Ruth Topete RN Outcome: Progressing Problem: Urinary Incontinence Goal: Perineal skin integrity is maintained or improved 03/14/2025 0301 by Ruth Topete RN Outcome: Progressing 03/13/20252217 by Ruth Topete RN Outcome: Progressing [facility] [id number] Plan of care note* Care Plan - Ruth Topete RN - 03/13/2025 10:18 PM EDT Problem: Knowledge Deficit Goal: Patient/family/caregiver demonstrates understanding of disease process, treatment plan, medications, and discharge instructions Outcome: Progressing Problem: Potential for Compromised Skin Integrity Goal: Skin Integrity is Maintained or Improved Outcome: Progressing Goal: Nutritional status is improving Outcome: Progressing Problem: Urinary Incontinence Goal: Perineal skin integrity is maintained or improved Outcome: Progressing [facility] [id number] [facility] EPILEPSY C[facility] & EEG LABORATORY [address] [place] [id number] CONTINUOUS LONG-TERM VIDEO EEG MONITORING REPORT Patient Name: Reema Shah : 1975 Date of Study: 03/13/25 Duration Recorded: 12:01:35 EEG#: [id number] DIRECTOR OF OPERATIONS FOR THERAPY: [employer] & Janet Curtis (student) PROVIDER REQUESTING STUDY: Dr. Hernandez REASON FOR EXAM: Evaluate for seizures DIAGNOSIS TAG: Transient Neurologic Symptoms (TNS) HISTORY: Reema Shah is a 49 y.o. female with history of significant for mood disorder, borderline personality disorder, psoriasis, and epilepsy since Jun 10, 1994 while at the [facility] when she experienced a convulsion. Previous provider ([facility]) followed her for kidney problems since age 25 now with improved renal function. She reports her last EEG was several years ago. She has been in a wheelchair for 6 years this month. Her fall frequency has worsened recently. She reports losing her balance, stating she uses a gait belt and walker. She describes her seizures as a brief left hand flexion greater than right in a dystonic posture and then her left arm shakes uncontrollably with inability to talk after stating, I think Im going into a seizure. MEDICATIONS: Current Medications[1] TECHNICAL ASPECTS: This continuous scalp EEG study with video was carried out at [facility]. Scalp electrodes were positioned in person by an agricultural research technologist, following patient education, according to the 10-20 International system of electrode placement and maintained for integrity and quality of the recording. EEG data with video was recorded continuously and digitally stored. The agricultural research technologist reviewed all automated detections and manual events and prepared the data for archiving and provider review. Referential and bipolar montages were used for review. TECHNOLOGIST NOTES: No skull or scalp defects were observed. This video-EEG monitoring was continuously monitored, 4 patients per technologist. BACKGROUND ACTIVITY: Posterior background activity: A continuous poorly organized 7 Hz, 10-50 uV rhythm was seen symmetrically over the posterior head regions bilaterally. Beta range: Fronto-centrally predominant beta range activity (15-25 Hz, 10-20 uV) was seen. Sleep: Stage N2 sleep was reached as evidenced by the appearance of vertex waves and sleep spindles seen symmetrically over the central head regions bilaterally. Normal Variants: No normal variants were identified. SLOWING: Continuous (greater than 90% of the recording) generalized to diffuse semi-rhythmical theta range (4.5-5.5 Hz, 10-100 uV) slow wave activity was seen unresponsive to stimulation. 23:32:55 LFF 1Hz HFF 30Hz Sens 7uV/mm Montage: AP Ref to AVG INTERICTAL EPILEPTIFORM ACTIVITY: No epileptiform activity was seen. ICTAL ACTIVITY: No ictal activity was seen. NON-EPILEPTIC EVENTS: None. ACTIVATION PROCEDURES: Photic stimulation was not performed. Hyperventilation was not performed. IMPRESSION AND ACTIONS TAKEN: This continuous EEG with video is abnormal. Continuous generalized to diffuse slowing is seen without epileptic features and not responsive to stimulation. No seizures are observed. The findings are consistent with a moderate global encephalopathy nonspecific as to etiology. Will continue video-EEG monitoring with the goal of maximizing probability of capturing interictal epileptiform activity. Additionally, will attempt to delineate etiology of spells. Sohail Hernandez MD PhD Epilepsy Attending [1] Current Facility-Administered Medications Medication Dose Route Frequency Provider Last Rate Last Admin acetaminophen (Tylenol) tablet 650 mg 650 mg Oral q6h PRN Srinivasa Luevano MD Or acetaminophen (Tylenol) suppository 650 mg 650 mg Rectal q6h PRN Srinivasa Luevano MD albuterol 108 (90 Base) MCG/ACT inhaler 2 puff 2 puff Inhalation q6h PRN Srinivasa Luevano MD allopurinol (Zyloprim) tablet 100 mg 100 mg Oral Daily Srinivasa Luevano MD amLODIPine (Norvasc) tablet 5 mg 5 mg Oral Daily Srinivasa Luevano MD atorvastatin (Lipitor) tablet 20 mg 20 mg Oral Nightly Srinivasa Luevano MD bisacodyl (Dulcolax) suppository 10 mg 10 mg Rectal Daily PRN Srinivasa Luevano MD busPIRone (Buspar) tablet 10 mg 10 mg Oral TID Srinivasa Luevano MD [START ON 03/14/2025] calcium carbonate-cholecalciferol (Oyster Shell) 250-3.125 MG-MCG per tablet 1 tablet 1 tablet Oral Daily Srinivasa Luevano MD cetirizine (ZyrTEC) tablet 5 mg 5 mg Oral Daily Srinivasa Luevano MD cholecalciferol (Vitamin D-3) tablet 2,000 Units 2,000 Units Oral Daily Srinivasa Luevano MD cyanocobalamin (Vitamin B-12) tablet 1,000 mcg 1,000 mcg Oral Daily Srinivasa Luevano MD [START ON 03/14/2025] desvenlafaxine (Pristiq) 24 hr tablet 50 mg 50 mg Oral Daily Srinivasa Luevano MD [START ON 03/14/2025] divalproex (Depakote ER) 24 hr tablet 250 mg 250 mg Oral q AM Srinivasa Luevano MD And divalproex (Depakote ER) 24 hr t (more content not included)...[facility]05-27-2025 Procedure note* Sohail Hernandez MD PhD - 03/13/2025 1:57 PM EDT Images from the original note were not included. [facility] EPILEPSY CENTER & EEG LABORATORY [address] [place] [id number] CONTINUOUS LONG-TERM VIDEO EEG MONITORING REPORT Patient Name: Reema Shah : 1975 Date of Study: 03/13/25 Duration Recorded: 12:01:35 EEG#: [id number] DIRECTOR OF OPERATIONS FOR THERAPY: [employer] & Janet Curtis (student) PROVIDER REQUESTING STUDY: Dr. Hernandez REASON FOR EXAM: Evaluate for seizures DIAGNOSIS TAG: Transient Neurologic Symptoms (TNS) HISTORY: Reema Shah is a 49 y.o. female with history of significant for mood disorder, borderline personality disorder, psoriasis, and epilepsy since Jun 10, 1994 while at the [facility] when she experienced a convulsion. Previous provider ([facility]) followed her for kidney problems since age 25 now with improved renal function. She reports her last EEG was several years ago. She has been in a wheelchair for 6 years this month. Her fall frequency has worsened recently. She reports losing her balance, stating she uses a gait belt and walker. She describes her seizures as a brief left hand flexion greater than right in a dystonic posture and then her left arm shakes uncontrollably with inability to talk after stating, I think Im going into a seizure. MEDICATIONS: Current Medications[1] TECHNICAL ASPECTS: This continuous scalp EEG study with video was carried out at [facility]. Scalp electrodeswere positioned in person by an agricultural research technologist, following patient education, according to the 10-20 International system of electrode placement and maintained for integrity and quality of the recording. EEG data with video was recorded continuously and digitally stored. The agricultural research technologist reviewed all automated detections and manual events and prepared the data for archiving and provider review. Referential and bipolar montages were used for review. TECHNOLOGIST NOTES: No skull or scalp defects were observed. This video-EEG monitoring was continuously monitored, 4 patients per technologist. BACKGROUND ACTIVITY: Posterior background activity: A continuous poorly organized 7 Hz, 10-50 uV rhythm was seen symmetrically over the posterior head regions bilaterally. Beta range: Fronto-centrally predominant beta range activity (15-25 Hz, 10-20 uV) was seen. Sleep: Stage N2 sleep was reached as evidenced by the appearance of vertex waves and sleep spindlesseen symmetrically over the central head regions bilaterally. Normal Variants: No normal variants were identified. SLOWING: Continuous (greater than 90% of the recording) generalized to diffuse semi- rhythmical theta range (4.5-5.5 Hz, 10-100 uV) slow wave activity was seen unresponsive to stimulation. 23:32:55 LFF 1Hz HFF 30Hz Sens 7uV/mm Montage: AP Ref to AVG INTERICTAL EPILEPTIFORM ACTIVITY: No epileptiform activity was seen. ICTAL ACTIVITY: No ictal activity was seen. NON-EPILEPTIC EVENTS: None. ACTIVATION PROCEDURES: Photic stimulation was not performed. Hyperventilation was not performed. IMPRESSION AND ACTIONS TAKEN: This continuous EEG with video is abnormal. Continuous generalized to diffuse slowing is seen without epileptic features and not responsive to stimulation. No seizures are observed. The findings are consistent with a moderate global encephalopathy nonspecific as to etiology. Will continue video-EEG monitoring with the goal of maximizing probability of capturing interictal epileptiform activity. Additionally, will attempt to delineate etiology of spells. Sohail Hernandez MD PhD Epilepsy Attending [1] Current Facility-Administered Medications Medication Dose Route Frequency Provider Last Rate Last Admin acetaminophen (Tylenol) tablet 650 mg 650 mg Oral q6h PRN Srinivasa Luevano MD Or acetaminophen (Tylenol) suppository 650 mg 650 mg Rectal q6h PRN Srinivasa Luevano MD albuterol 108 (90 Base) MCG/ACT inhaler 2 puff 2 puff Inhalation q6h PRN Srinivasa Luevano MD allopurinol (Zyloprim) tablet 100 mg 100 mg Oral Daily Srinivasa Luevano MD amLODIPine (Norvasc) tablet 5 mg 5 mg Oral Daily Srinivasa Luevano MD atorvastatin (Lipitor) tablet 20 mg 20 mg Oral Nightly Srinivasa Luevano MD bisacodyl (Dulcolax) suppository 10 mg 10 mg Rectal Daily PRN Srinivasa Luevano MD busPIRone (Buspar) tablet 10 mg 10 mg Oral TID Srinivasa Luevano MD [START ON 03/14/2025] calcium carbonate-cholecalciferol (Oyster Shell) 250-3.125 MG-MCG per tablet 1tablet 1 tablet Oral Daily Srinivasa Luevano MD cetirizine (ZyrTEC) tablet 5 mg 5 mg Oral Daily Srinivasa Luevano MD cholecalciferol (Vitamin D-3) tablet 2,000 Units 2,000 Units Oral Daily Srinivasa Luevano MD cyanocobalamin (Vitamin B-12) tablet 1,000 mcg 1,000 mcg Oral Daily Srinivasa Luevano MD [START ON 03/14/2025] desvenlafaxine (Pristiq) 24 hr tablet 50 mg 50 mg Oral Daily Srinivasa Luevano MD [START ON 03/14/2025] divalproex (Depakote ER) 24 hr tablet 250 mg 250 mg Oral q AM Srinivasa Luevano MD And divalproex (Depakote ER) 24 hr tablet 500 mg 500 mg Oral qPM Srinivasa Luevano MD famotidine (Pepcid) tablet 20 mg 20 mg Oral BID PRN Srinivasa Luevano MD levETIRAcetam (Keppra) tablet 500 mg 500 mg Oral BID Srinivasa Luevano MD [START ON 03/14/2025] levothyroxine (Synthroid, Levoxyl) tablet 25 mcg 25 mcg Oral qAM AC Srinivasa Luevano MD [START ON 03/14/2025] lisinopril tablet 20 mg 20 mg Oral Daily Srinivasa Luevano MD LORazepam (Ativan) tablet 1 mg 1 mg Oral See admin instructions Srinivasa Luevano MD LORazepam (Ativan) tablet 2 mg 2 mg Oral BID Srinivasa Luevano MD magnesium hydroxide (Milk of Magnesia) 400 MG/5ML suspension 30 mL 30 mL Oral Nightly PRN Srinivasa Luevano MD magnesium oxide (Mag-Ox) tablet 400 mg 400 mg Oral Daily Srinivasa Luevano MD metoprolol tartrate (Lopressor) tablet 25 mg 25 mg Oral BID Srinivasa Luevano MD ondansetron ODT (Zofran-ODT) disintegrating tablet 4 mg 4 mg Oral q8h PRN Srinivasa Luevano MD Or ondansetron (Zofran) injection 4 mg 4 mg IntraVENous q6h PRN Srinivasa Luevano MD polyethylene glycol (PEG) 3350 (Miralax) packet 17 g 17 g Oral Daily Srinivasa Luevano MD potassium chloride (Klor-Con) packet 20 mEq 20 mEq Oral BID Srinivasa Luevano MD primidone (Mysoline) tablet 200 mg 200 mg Oral BID Srinivasa Luevano MD sodium chloride 0.9 % infusion 5-250 mL/hr IntraVENous PRN Srinivasa Luevano MD sodium chloride 0.9% (NS) flush 5-40 mL 5-40 mL IntraVENous q12h Srinivasa Luevano MD sodium chloride 0.9% (NS) flush 5-40 mL 5-40 mL IntraVENous PRN Srinivasa Luevano MD [facility] [id number] History and physical note* Srinivasa Luevano MD - 03/13/2025 12:47 PM EDT Attending History and Physical Admit Date: 03/13/2025 PCP: Jeanie Ayala CHIEF COMPLAINT: seizure disorder Reason for Admission: cvEEG History Obtained From: patient HISTORY OF PRESENT ILLNESS: Reema Diop is a 49 y.o. female with past medical history HTN, HLD, CKD3 (Cr 1.2- 1.3), CVA hx, MELQUIADES, HFpEF (LVEF 60%), mood disorder, borderline personality disorder, psoriasis, and epilepsy who presented for routine admission for cvEEG monitoring for epilepsy workup. Pt denied complaints apart from fatigue when seen. Does not know home meds off hand. States has damon while since last seizure. Denies chest pain, SOB, f/c. Reports constipation yesterday. Addendum: Med list changes from facilitiy per RN clonidine instead of lisinopril Depakote 250mg BID, 2100 norvasc 5mg BID K+ 10mg BID tums TID ibuprofen 800mg TID prn Labs with RAÚL, instruct to avoid ibuprofen. FEUrea ordered for tomorrow. Fluid challenge 500cc LR x1. Past Medical History: Medical History[1] Past Surgical History: Surgical History[2] Social History: Social History Socioeconomic History Marital status: Spouse name: Not on file Number of children: Not on file Years of education: Not on file Highest education level: Not on file Occupational History Not on file Tobacco Use Smoking status: Never Smokeless tobacco: Never Substance and Sexual Activity Alcohol use: Never Drug use: Never Sexual activity: Not on file Other Topics Concern Not on file Social History Narrative Not on file Social Drivers of Health Financial Resource Strain: Low Risk (06/05/2024) Received from [facility] Overall Financial Resource Strain (CARDIA) Difficulty of Paying Living Expenses: Not very hard Food Insecurity: No Food Insecurity (06/05/2024) Received from [facility] Hunger Vital Sign Worried About Running Out of Food in the Last Year: Never true Ran Out of Food in the Last Year: Never true Transportation Needs: No Transportation Needs (06/05/2024) Received from [facility] PRAPARE - Transportation Lack of Transportation (Medical): No Lack of Transportation (Non-Medical): No Physical Activity: Not on file Stress: Not on file Social Connections: Not on file Intimate Partner Violence: Not At Risk (06/05/2024) Received from [facility] Humiliation, Afraid, Rape, and Kick questionnaire Fear of Current or Ex-Partner: No Emotionally Abused: No Physically Abused: No Sexually Abused: No Housing Stability: Low Risk (06/05/2024) Received from [facility] Housing Stability Vital Sign Unable to Pay for Housing in the Last Year: No Number of Times Moved in the Last Year: 1 Homeless in the Last Year: No Family History: Family History[3] Medications Prior to Admission: Current Medications[4] Allergies: Allergies[5] REVIEW OF SYSTEMS: All systems reviewed and negative apart from above Vitals: BP 145/87 (BP Location: Right arm, Patient Position: Lying) Pulse 78 Temp 36.6 C (97.8 F) (Temporal) Resp 16 BMI Classification: Obese (BMI 30.0-39.9) Pulse Ox: No data recorded Supplemental O2: PHYSICAL EXAM: Physical Exam Vitals reviewed. HENT: Mouth/Throat: Mouth: Mucous membranes are moist. Eyes: Extraocular Movements: Extraocular movements intact. Cardiovascular: Rate and Rhythm: Normal rate. Pulmonary: Effort: Pulmonary effort is normal. Abdominal: General: Abdomen is flat. There is no distension. Palpations: Abdomen is soft. There is no mass. Tenderness: There is no abdominal tenderness. There is no guarding. Musculoskeletal: Right lower leg: No edema. Left lower leg: No edema. Skin: General: Skin is warm and dry. Neurological: Mental Status: She is alert and oriented to person, place, and time. Psychiatric: Mood and Affect: Mood normal. DATA: CBC: No results for input(s): WBC, RBC, HGB, HCT, MCV, RDW, PLT in the last 72 hours. BMP:No results for input(s): NA, K, CL, CO2, BUN, CREATININE, GLUCOSE, CALCIUM, ANIONGAP in the last 72 hours. LIVER PROFILE:No results for input(s): AST, ALT, BILITOT, ALKPHOS, PROT in the last 72 hours. No lab exists for component: LABALBU PT/INR: No results for input(s): PROTIME, INR in the last 72 hours. CARDIAC ENZYMES: No results for input(s): TROPONINI in the last 72 hours. Procalcitonin: No results found for: PROCAL Urine Culture: No results found for this or any previous visit. COVID-19 PCR: No results for input(s): COVID19 in the last 72 hours. I reviewed: [x] laboratory results [x] radiographic results At the time of today's encounter. Pt was advised of the results. Data: (CAT1) Reviewed 3 or more notes from different specialty or health system (each=1). (CAT1) Ordered 2 new labs and/or studies (each=1, panels count as 1). (LOW: 2x CAT1 or independent historian MOD: 3x CAT1 or 1x CAT3 EXTENSIVE: 3x CAT1 and 1x CAT3) Assessment Discussed management with the ED provider and agree with hospitalization. Acute, acute on chronic, unstable/uncontrolled chronic problems/diagnoses: #unspecified seizure disorder -cvEEG, neuro check q4h, tele monitoring -Cont home keppra 500mg BID, depakote 250mg qam, 500mg qn, primidone 200mg BID -Scheduled ativan 2mg BID + 1mg prn for tremors #Constipation -daily miralax + prns Stable chronic problems affecting care, new non-acute diagnoses: #CKD3-Trend BMP #HTN, #HLD, #HFpEF - lisinopril 20mg daily, lopressor 25mg BID, amlodipine 5mg daily, atorvastatin 20mg at bedtime #Mood disorder,#BPD-desvenlafaxine, buspar #Gout-home Allopuril #hx Hypokalemia-home kdur 20meq BID #Hx hypothyroid - cont synthroid 25mcg qam Plan As a result of the above findings & factors, the following mgmt was pursued: - as above - am labs, replace lytes prn - PT/OT/CM/SW - delirium precautions: limit nighttime disturbances and avoid anticholinergic meds, benzos, etc - DVT prophylaxis: encourage ambulation Complexity: Chronic illness with mild to moderate exacerbation, progression, or side effect of tx (MOD). Multiple stable chronic illnesses (MOD). Risk: Admission to hospital-level care was considered or occurred (HIGH). Advance Directive: Full Code Anticipated Discharge - Date - 03/15 - Location - facility - Pending the following - field technical support consultant recs Total time spent (which include face to face and non face to face encounters) : 90 minutes. Extended Emergency Contact Information Primary Emergency Contact: Ko Perea Relation: Father Culture Manager needed? No [employer] Reema Shah : 1975 Primary Care Physician: Jeanie Ayala The patient and/or family/surrogate voluntarily agreed to participate in ACP services. Patient s cognitive capacity: AOx3 Code Status: [X] [FULL CODE - Continue all advanced life support: CPR,intubation,invasive procedures] [_] [DNR-CCA - DO NOT do CPR, intubation] [_] [DNR-TRANSCRIPTION TYPIST - Comfort care only] [_] DNR form [was/was not] signed Total time spent: 0 minutes were spent discussing the patient's resuscitation status, advance care planning, and end of life care, with patient and/or family/surrogate. Srinivasa Luevano MD Division of Hospitalist Medicine [facility] [1] Past Medical History: Diagnosis Date Anxiety Chronic kidney disease Epilepsy (HCC) Essential hypertension Gastro-esophageal reflux disease without esophagitis Hypokalemia Hypothyroidism Obesity Personal history of urinary (tract) infections Psoriasis Repeated falls Thrombocytopenia (HCC) [2] Past Surgical History: Procedure Laterality Date BREAST REDUCTION [3] Family History Problem Relation Name Age of Onset Heart disease Mother Parkinson's Disease Mother Dementia Mother Thyroid disease Father Asthma Sister Seizures Sister Asthma Sister Asthma Brother No Known Problems Maternal Grandmother No Known Problems Maternal Grandfather No Known Problems Paternal Grandmother No Known Problems Paternal Grandfather No Known Problems Daughter [4] Current Facility-Administered Medications: acetaminophen (Tylenol) tablet 650 mg, 650 mg, Oral, q6h PRN OR acetaminophen (Tylenol) suppository 650 mg, 650 mg, Rectal, q6h PRN, Srinivasa Luevano MD ondansetron ODT (Zofran-ODT) disintegrating tablet 4 mg, 4 mg, Oral, q8h PRN OR ondansetron (Zofran) injection 4 mg, 4 mg, IntraVENous, q6h PRN, Srinivasa Luevano MD polyethylene glycol (PEG) 3350 (Miralax) packet 17 g, 17 g, Oral, Daily PRN, Srinivasa Luevano MD sodium chloride 0.9 % infusion, 5-250 mL/hr, IntraVENous, PRN, Srinivasa Luevano MD sodium chloride 0.9% (NS) flush 5-40 mL, 5-40 mL, IntraVENous, q12h, Srinivasa Luevano MD sodium chloride 0.9% (NS) flush 5-40 mL, 5-40 mL, IntraVENous, PRN, Srinivasa Luevano MD [5] Allergies Allergen Reactions Gabapentin Nausea And Vomiting and Unknown Hydrocodone-Acetaminophen Other and Unknown Vomiting Morphine Other, Unknown and Nausea And Vomiting Vomiting Ondansetron Other and Nausea And Vomiting Vomiting Other Phenytoin Unknown Promethazine Other, Unknown and Nausea And Vomiting Sick Acetaminophen Rash Other reaction(s): Rash Azithromycin Rash, Unknown and Nausea And Vomiting Codeine Other, Rash, Unknown and Nausea And Vomiting Vomiting Erythromycin Rash and Unknown Erythromycin Base Rash and Unknown Hydrocodone Rash and Unknown Hydromorphone Rash and Unknown Penicillins Rash and Unknown Tramadol Rash and Unknown [facility] [id number] NoteAttending History and Physical Admit Date: 03/13/2025 PCP: Jeanie Ayala CHIEF COMPLAINT: seizure disorder Reason for Admission: cvEEG History Obtained From: patient HISTORY OF PRESENT ILLNESS: Reema Diop is a 49 y.o. female with past medical history HTN, HLD, CKD3 (Cr 1.2-1.3), CVA hx, MELQUIADES, HFpEF (LVEF 60%), mood disorder, borderline personality disorder, psoriasis, and epilepsy who presented for routine admission for cvEEG monitoring for epilepsy workup. Pt denied complaints apart from fatigue when seen. Does not know home meds off hand. States has damon while since last seizure. Denies chest pain, SOB, f/c. Reports constipation yesterday. Addendum: Med list changes from facilitiy per RN clonidine instead of lisinopril Depakote 250mg BID, 2100 norvasc 5mg BID K+ 10mg BID tums TID ibuprofen 800mg TID prn Labs with RAÚL, instruct to avoid ibuprofen. FEUrea ordered for tomorrow. Fluid challenge 500cc LR x1. Past Medical History: Medical History[1] Past Surgical History: Surgical History[2] Social History: Social History Socioeconomic History Marital status: Spouse name: Not on file Number of children: Not on file Years of education: Not on file Highest education level: Not on file Occupational History Not on file Tobacco Use Smoking status: Never Smokeless tobacco: Never Substance and Sexual Activity Alcohol use: Never Drug use: Never Sexual activity: Not on file Other Topics Concern Not on file Social History Narrative Not on file Social Drivers of Health Financial Resource Strain: Low Risk (06/05/2024) Received from [facility] Overall Financial Resource Strain (CARDIA) Difficulty of Paying Living Expenses: Not very hard Food Insecurity: No Food Insecurity (06/05/2024) Received from [facility] Hunger Vital Sign Worried About Running Out of Food in the Last Year: Never true Ran Out of Food in the Last Year: Never true Transportation Needs: No Transportation Needs (06/05/2024) Received from [facility] PRAPARE - Transportation Lack of Transportation (Medical): No Lack of Transportation (Non-Medical): No Physical Activity: Not on file Stress: Not on file Social Connections: Not on file Intimate Partner Violence: Not At Risk (06/05/2024) Received from [facility] Humiliation, Afraid, Rape, and Kick questionnaire Fear of Current or Ex-Partner: No Emotionally Abused: No Physically Abused: No Sexually Abused: No Housing Stability: Low Risk (06/05/2024) Received from [facility] Housing Stability Vital Sign Unable to Pay for Housing in the Last Year: No Number of Times Moved in the Last Year: 1 Homeless in the Last Year: No Family History: Family History[3] Medications Prior to Admission: Current Medications[4] Allergies: Allergies[5] REVIEW OF SYSTEMS: All systems reviewed and negative apart from above Vitals: BP 145/87 (BP Location: Right arm, Patient Position: Lying) Pulse 78 Temp 36.6 ?C (97.8 ?F) (Temporal) Resp 16 BMI Classification: Obese (BMI 30.0-39.9) Pulse Ox: No data recorded Supplemental O2: PHYSICAL EXAM: Physical Exam Vitals reviewed. HENT: Mouth/Throat: Mouth: Mucous membranes are moist. Eyes: Extraocular Movements: Extraocular movements intact. Cardiovascular: Rate and Rhythm: Normal rate. Pulmonary: Effort: Pulmonary effort is normal. Abdominal: General: Abdomen is flat. There is no distension. Palpations: Abdomen is soft. There is no mass. Tenderness: There is no abdominal tenderness. There is no guarding. Musculoskeletal: Right lower leg: No edema. Left lower leg: No edema. Skin: General: Skin is warm and dry. Neurological: Mental Status: She is alert and oriented to person, place, and time. Psychiatric: Mood and Affect: Mood normal. DATA: CBC: No results for input(s): WBC, RBC, HGB, HCT, MCV, RDW, PLT in the last 72 hours. BMP:No results for input(s): NA, K, CL, CO2, BUN, CREATININE, GLUCOSE, CALCIUM, ANIONGAP in the last 72 hours. LIVER PROFILE:No results for input(s): AST, ALT, BILITOT, ALKPHOS, PROT in the last 72 hours. No lab exists for component: LABALBU PT/INR: No results for input(s): PROTIME, INR in the last 72 hours. CARDIAC ENZYMES: No results for input(s): TROPONINI in the last 72 hours. Procalcitonin: No results found for: PROCAL Urine Culture: No results found for this or any previous visit. COVID-19 PCR: No results for input(s): COVID19 in the last 72 hours. I reviewed: [x] laboratory results [x] radiographic results At the time of today's encounter. Pt was advised of the results. Data: (CAT1) Reviewed 3 or more notes from different specialty or health system (each=1). (CAT1) Ordered 2 new labs and/or studies (each=1, panels count as 1). (LOW: 2x CAT1 or independent historian MOD: 3x CAT1 or 1x CAT3 EXTENSIVE: 3x CAT1 and 1x CAT3) Asses (more content not included)...[facility]05-27-2025 History and physical note* Srinivasa Luevano MD - 03/13/2025 12:47 PM EDT Attending History and Physical Admit Date: 03/13/2025 PCP: Jeanie Ayala CHIEF COMPLAINT: seizure disorder Reason for Admission: cvEEG History Obtained From: patient HISTORY OF PRESENT ILLNESS: Reema Diop is a 49 y.o. female with past medical history HTN, HLD, CKD3 (Cr 1.2- 1.3), CVA hx, MELQUIADES, HFpEF (LVEF 60%), mood disorder, borderline personality disorder, psoriasis, and epilepsy who presented for routine admission for cvEEG monitoring for epilepsy workup. Pt denied complaints apart from fatigue when seen. Does not know home meds off hand. States has damon while since last seizure. Denies chest pain, SOB, f/c. Reports constipation yesterday. Addendum: Med list changes from facilitiy per RN clonidine instead of lisinopril Depakote 250mg BID, 2100 norvasc 5mg BID K+ 10mg BID tums TID ibuprofen 800mg TID prn Labs with RAÚL, instruct to avoid ibuprofen. FEUrea ordered for tomorrow. Fluid challenge 500cc LR x1. Past Medical History: Medical History[1] Past Surgical History: Surgical History[2] Social History: Social History Socioeconomic History Marital status: Spouse name: Not on file Number of children: Not on file Years of education: Not on file Highest education level: Not on file Occupational History Not on file Tobacco Use Smoking status: Never Smokeless tobacco: Never Substance and Sexual Activity Alcohol use: Never Drug use: Never Sexual activity: Not on file Other Topics Concern Not on file Social History Narrative Not on file Social Drivers of Health Financial Resource Strain: Low Risk (06/05/2024) Received from [facility] Overall Financial Resource Strain (CARDIA) Difficulty of Paying Living Expenses: Not very hard Food Insecurity: No Food Insecurity (06/05/2024) Received from [facility] Hunger Vital Sign Worried About Running Out of Food in the Last Year: Never true Ran Out of Food in the Last Year: Never true Transportation Needs: No Transportation Needs (06/05/2024) Received from [facility] PRAPARE - Transportation Lack of Transportation (Medical): No Lack of Transportation (Non-Medical): No Physical Activity: Not on file Stress: Not on file Social Connections: Not on file Intimate Partner Violence: Not At Risk (06/05/2024) Received from [facility] Humiliation, Afraid, Rape, and Kick questionnaire Fear of Current or Ex-Partner: No Emotionally Abused: No Physically Abused: No Sexually Abused: No Housing Stability: Low Risk (06/05/2024) Received from [facility] Housing Stability Vital Sign Unable to Pay for Housing in the Last Year: No Number of Times Moved in the Last Year: 1 Homeless in the Last Year: No Family History: Family History[3] Medications Prior to Admission: Current Medications[4] Allergies: Allergies[5] REVIEW OF SYSTEMS: All systems reviewed and negative apart from above Vitals: BP 145/87 (BP Location: Right arm, Patient Position: Lying) Pulse 78 Temp 36.6 C (97.8 F) (Temporal) Resp 16 BMI Classification: Obese (BMI 30.0-39.9) Pulse Ox: No data recorded Supplemental O2: PHYSICAL EXAM: Physical Exam Vitals reviewed. HENT: Mouth/Throat: Mouth: Mucous membranes are moist. Eyes: Extraocular Movements: Extraocular movements intact. Cardiovascular: Rate and Rhythm: Normal rate. Pulmonary: Effort: Pulmonary effort is normal. Abdominal: General: Abdomen is flat. There is no distension. Palpations: Abdomen is soft. There is no mass. Tenderness: There is no abdominal tenderness. There is no guarding. Musculoskeletal: Right lower leg: No edema. Left lower leg: No edema. Skin: General: Skin is warm and dry. Neurological: Mental Status: She is alert and oriented to person, place, and time. Psychiatric: Mood and Affect: Mood normal. DATA: CBC: No results for input(s): WBC, RBC, HGB, HCT, MCV, RDW, PLT in the last 72 hours. BMP:No results for input(s): NA, K, CL, CO2, BUN, CREATININE, GLUCOSE, CALCIUM, ANIONGAP in the last 72 hours. LIVER PROFILE:No results for input(s): AST, ALT, BILITOT, ALKPHOS, PROT in the last 72 hours. No lab exists for component: LABALBU PT/INR: No results for input(s): PROTIME, INR in the last 72 hours. CARDIAC ENZYMES: No results for input(s): TROPONINI in the last 72 hours. Procalcitonin: No results found for: PROCAL Urine Culture: No results found for this or any previous visit. COVID-19 PCR: No results for input(s): COVID19 in the last 72 hours. I reviewed: [x] laboratory results [x] radiographic results At the time of today's encounter. Pt was advised of the results. Data: (CAT1) Reviewed 3 or more notes from different specialty or health system (each=1). (CAT1) Ordered 2 new labs and/or studies (each=1, panels count as 1). (LOW: 2x CAT1 or independent historian MOD: 3x CAT1 or 1x CAT3 EXTENSIVE: 3x CAT1 and 1x CAT3) Assessment Discussed management with the ED provider and agree with hospitalization. Acute, acute on chronic, unstable/uncontrolled chronic problems/diagnoses: #unspecified seizure disorder -cvEEG, neuro check q4h, tele monitoring -Cont home keppra 500mg BID, depakote 250mg qam, 500mg qn, primidone 200mg BID -Scheduled ativan 2mg BID + 1mg prn for tremors #Constipation -daily miralax + prns Stable chronic problems affecting care, new non-acute diagnoses: #CKD3-Trend BMP #HTN, #HLD, #HFpEF - lisinopril 20mg daily, lopressor 25mg BID, amlodipine 5mg daily, atorvastatin 20mg at bedtime #Mood disorder,#BPD-desvenlafaxine, buspar #Gout-home Allopuril #hx Hypokalemia-home kdur 20meq BID #Hx hypothyroid - cont synthroid 25mcg qam Plan As a result of the above findings & factors, the following mgmt was pursued: - as above - am labs, replace lytes prn - PT/OT/CM/SW - delirium precautions: limit nighttime disturbances and avoid anticholinergic meds, benzos, etc - DVT prophylaxis: encourage ambulation Complexity: Chronic illness with mild to moderate exacerbation, progression, or side effect of tx (MOD). Multiple stable chronic illnesses (MOD). Risk: Admission to hospital-level care was considered or occurred (HIGH). Advance Directive: Full Code Anticipated Discharge - Date - 03/15 - Location - facility - Pending the following - field technical support consultant recs Total time spent (which include face to face and non face to face encounters) : 90 minutes. Extended Emergency Contact Information Primary Emergency Contact: Ko Perea Relation: Father Culture Manager needed? No [employer] Reema Shah : 1975 Primary Care Physician: Jeanie Ayala The patient and/or family/surrogate voluntarily agreed to participate in ACP services. Patient s cognitive capacity: AOx3 Code Status: [X] [FULL CODE - Continue all advanced life support: CPR,intubation,invasive procedures] [_] [DNR-CCA - DO NOT do CPR, intubation] [_] [DNR-TRANSCRIPTION TYPIST - Comfort care only] [_] DNR form [was/was not] signed Total time spent: 0 minutes were spent discussing the patient's resuscitation status, advance care planning, and end of life care, with patient and/or family/surrogate. Srinivasa Luevano MD Division of Hospitalist Medicine [facility] [1] Past Medical History: Diagnosis Date Anxiety Chronic kidney disease Epilepsy (HCC) Essential hypertension Gastro-esophageal reflux disease without esophagitis Hypokalemia Hypothyroidism Obesity Personal history of urinary (tract) infections Psoriasis Repeated falls Thrombocytopenia (HCC) [2] Past Surgical History: Procedure Laterality Date BREAST REDUCTION [3] Family History Problem Relation Name Age of Onset Heart disease Mother Parkinson's Disease Mother Dementia Mother Thyroid disease Father Asthma Sister Seizures Sister Asthma Sister Asthma Brother No Known Problems Maternal Grandmother No Known Problems Maternal Grandfather No Known Problems Paternal Grandmother No Known Problems Paternal Grandfather No Known Problems Daughter [4] Current Facility-Administered Medications: acetaminophen (Tylenol) tablet 650 mg, 650 mg, Oral, q6h PRN OR acetaminophen (Tylenol) suppository 650 mg, 650 mg, Rectal, q6h PRN, Srinivasa Luevano MD ondansetron ODT (Zofran-ODT) disintegrating tablet 4 mg, 4 mg, Oral, q8h PRN OR ondansetron (Zofran) injection 4 mg, 4 mg, IntraVENous, q6h PRN, Srinivasa Luevano MD polyethylene glycol (PEG) 3350 (Miralax) packet 17 g, 17 g, Oral, Daily PRN, Srinivasa Luevano MD sodium chloride 0.9 % infusion, 5-250 mL/hr, IntraVENous, PRN, Srinivasa Luevano MD sodium chloride 0.9% (NS) flush 5-40 mL, 5-40 mL, IntraVENous, q12h, Srinivasa Luevano MD sodium chloride 0.9% (NS) flush 5-40 mL, 5-40 mL, IntraVENous, PRN, Srinivasa Luevano MD [5] Allergies Allergen Reactions Gabapentin Nausea And Vomiting and Unknown Hydrocodone-Acetaminophen Other and Unknown Vomiting Morphine Other, Unknown and Nausea And Vomiting Vomiting Ondansetron Other and Nausea And Vomiting Vomiting Other Phenytoin Unknown Promethazine Other, Unknown and Nausea And Vomiting Sick Acetaminophen Rash Other reaction(s): Rash Azithromycin Rash, Unknown and Nausea And Vomiting Codeine Other, Rash, Unknown and Nausea And Vomiting Vomiting Erythromycin Rash and Unknown Erythromycin Base Rash and Unknown Hydrocodone Rash and Unknown Hydromorphone Rash and Unknown Penicillins Rash and Unknown Tramadol Rash and Unknown documented in this [facility]05-27-2025 Consult note* Geovanny Oliveira APRN - [facility] - 03/13/2025 11:20 AM EDT Images from the original note were not included. Department of Neurological Sciences Section of Epilepsy INITIAL CONSULT NOTE ID: Reema Shha is a 49 y.o. female with history of mood disorder, borderline personality disorder, psoriasis, and epilepsy since Jun 10, 1994 while at the [facility] when she experienced aconvulsion. She is admitted for a diagnostic cvEEG. HPI/SUBJECTIVE: She established with our clinic on 10/26/24 at time she was reporting that her last seizure occurred in Sep 2024 (?). She describes it as a brief left hand flexion greater than right in a dystonic posture and then her left arm shakes uncontrollably with inability to talk after stating, I think Im going into a seizure. She reports that when she went to the hospital she had a generalized convulsive event. She was recommended to come to the EMU at that time for medication optimization and diagnostic cvEEG. She follow up on 12/08/24 and reported her last seizure occurred yesterday morning (). Shedescribes it as a brief left hand flexion greater than right in a dystonic posture and then her left arm shakes uncontrollably with inability to talk after stating, I think Im going into a seizure.She was again recommend to come to the EMU. She was seen most recently on 02/19/25. She denies any recurrent seizures. Her current anti-epilepticregimen includes Keppra 500 mg twice daily, Depakote 250 mg in the morning and 500 mg at night, andPrimidone 200 mg twice daily. Her most recent lab work (02/02/25) showed a Keppra level of 41 and a valproic acid level of 48. A previously ordered cvEEG/EMU admission has not been completed due to unsuccessful scheduling attempts. OBJECTIVE: Current Medications[1] PHYSICAL EXAM: There were no vitals taken for this visit. Physical Exam Constitutional: Appearance: Normal appearance. HENT: Head: Normocephalic. Cardiovascular: Rate and Rhythm: Normal rate and regular rhythm. Pulses: Normal pulses. Heart sounds: Normal heart sounds. Pulmonary: Effort: Pulmonary effort is normal. Breath sounds: Normal breath sounds. Abdominal: General: Abdomen is flat. Bowel sounds are normal. Palpations: Abdomen is soft. Musculoskeletal: Cervical back: Normal range of motion and neck supple. Skin: General: Skin is warm and dry. Neurological: General: No focal deficit present. Mental Status: She is alert and oriented to person, place, and time. Psychiatric: Mood and Affect: Mood normal. NEUROLOGIC: General Appearance: Well nourished, well developed, no apparent distress. Mental Status Exam: The patient is awake, alert and oriented to person, place and time. They have normal memory, fund of knowledge, attention/concentration and language. Spells 'HOUSE' forward and backward without errors. Verbal memory is normal. Visual memory is normal. Language is fluent with intact comprehension and repetition. Cranial Nerves: II: Pupils: equal, round, and reactive to light III, IV, : extra ocular movements intact, no nystagmus V: Facial sensation: intact to light touch bilaterally VII: Facial strength: symmetric on smile and blink VIII: Hearing: intact to voice/conversation IX: No dysarthria XI: Shoulder shrug: symmetric against gravity Motor: Normal bulk and tone. No atrophy or fasciculations observed. Bilateral tremors observed. Sensory: Bilaterally intact to light touch. Coordination: [id number] dysmetria bilaterally. Reflexes: Deferred. Gait: Unable to assess due to ongoing EEG monitoring. DATA No recent labs. ASSESSMENT AND PLAN Adore is a 49 year old with intractable epilepsy on multiple ASMs. She is admitted to the EMU for acvEEG to clarify her dx, and optimize her medications. Current ASM Keppra 500 mg twice daily Depakote 250 mg in the morning and 500 mg at night Primidone 200 mg twice daily. For Phase 1.0 orders, please answer the following questions: 1. Are seizures of unclear diagnosis and/or nonepileptic? Yes 2. Is epilepsy surgery being considered and requires video-EEG monitoring for the first phase of testing? No 3. Is this an ictal SPECT admission? No 4. Is the video-EEG recommended to assess daily EEG seizure burden, address new and concerning symptom-sign complex, and/or clarify syndromic epilepsy diagnosis? No 5. Is this patient on the ketogenic diet, modified Atkins' diet, or any other special diet for epilepsy? Is this admission to initiate the ketogenic diet? No PLAN: 1. Will begin continuous video-EEG monitoring with neurochecks q4h and telemetry monitoring in place. 2. Will not modify home ASM dosing for first night. 3. Seizure precautions in place - blue rail pads on all bed rails (not blankets), fall precautions. 4. Lorazepam 1mg only for a generalized tonic-clonic seizures and/or seizures lasting at least 3 minutes. 5. We will continue to follow the patient while in the EMU. Anticipated length of stay: 48-hours. LEEROY Esquivel CNP I spent 70 minutes independently, physically present on 3N, the time was spent examining the patient, reviewing their data, counseling (coordinating care) and providing discussion regarding EMU plan of care. Additionally I spent 15 minutes jointly managing the care of this patient with my cosigningphysician. [1] No current facility-administered medications for this encounter. Cosigned by Sohail Hernandez MD PhD at 03/14/2025 11:42 AM EDT [facility] Phone: [phone] Consult note* LEEROY Prado CNP - 03/13/2025 11:20 AM EDT Images from the original note were not included. Department of Neurological Sciences Section of Epilepsy INITIAL CONSULT NOTE ID: Reema Shah is a 49 y.o. female with history of mood disorder, borderline personality disorder, psoriasis, and epilepsy since Jun 10, 1994 while at the [facility] when she experienced aconvulsion. She is admitted for a diagnostic cvEEG. HPI/SUBJECTIVE: She established with our clinic on 10/26/24 at time she was reporting that her last seizure occurred in Sep 2024 (?). She describes it as a brief left hand flexion greater than right in a dystonic posture and then her left arm shakes uncontrollably with inability to talk after stating, I think Im going into a seizure. She reports that when she went to the hospital she had a generalized convulsive event. She was recommended to come to the EMU at that time for medication optimization and diagnostic cvEEG. She follow up on 12/08/24 and reported her last seizure occurred yesterday morning (). Shedescribes it as a brief left hand flexion greater than right in a dystonic posture and then her left arm shakes uncontrollably with inability to talk after stating, I think Im going into a seizure.She was again recommend to come to the EMU. She was seen most recently on 02/19/25. She denies any recurrent seizures. Her current anti-epilepticregimen includes Keppra 500 mg twice daily, Depakote 250 mg in the morning and 500 mg at night, andPrimidone 200 mg twice daily. Her most recent lab work (02/02/25) showed a Keppra level of 41 and a valproic acid level of 48. A previously ordered cvEEG/EMU admission has not been completed due to unsuccessful scheduling attempts. OBJECTIVE: Current Medications[1] PHYSICAL EXAM: There were no vitals taken for this visit. Physical Exam Constitutional: Appearance: Normal appearance. HENT: Head: Normocephalic. Cardiovascular: Rate and Rhythm: Normal rate and regular rhythm. Pulses: Normal pulses. Heart sounds: Normal heart sounds. Pulmonary: Effort: Pulmonary effort is normal. Breath sounds: Normal breath sounds. Abdominal: General: Abdomen is flat. Bowel sounds are normal. Palpations: Abdomen is soft. Musculoskeletal: Cervical back: Normal range of motion and neck supple. Skin: General: Skin is warm and dry. Neurological: General: No focal deficit present. Mental Status: She is alert and oriented to person, place, and time. Psychiatric: Mood and Affect: Mood normal. NEUROLOGIC: General Appearance: Well nourished, well developed, no apparent distress. Mental Status Exam: The patient is awake, alert and oriented to person, place and time. They have normal memory, fund of knowledge, attention/concentration and language. Spells 'HOUSE' forward and backward without errors. Verbal memory is normal. Visual memory is normal. Language is fluent with intact comprehension and repetition. Cranial Nerves: II: Pupils: equal, round, and reactive to light III, IV, : extra ocular movements intact, no nystagmus V: Facial sensation: intact to light touch bilaterally VII: Facial strength: symmetric on smile and blink VIII: Hearing: intact to voice/conversation IX: No dysarthria XI: Shoulder shrug: symmetric against gravity Motor: Normal bulk and tone. No atrophy or fasciculations observed. Bilateral tremors observed. Sensory: Bilaterally intact to light touch. Coordination: [id number] dysmetria bilaterally. Reflexes: Deferred. Gait: Unable to assess due to ongoing EEG monitoring. DATA No recent labs. ASSESSMENT AND PLAN Adore is a 49 year old with intractable epilepsy on multiple ASMs. She is admitted to the EMU for acvEEG to clarify her dx, and optimize her medications. Current ASM Keppra 500 mg twice daily Depakote 250 mg in the morning and 500 mg at night Primidone 200 mg twice daily. For Phase 1.0 orders, please answer the following questions: 1. Are seizures of unclear diagnosis and/or nonepileptic? Yes 2. Is epilepsy surgery being considered and requires video-EEG monitoring for the first phase of testing? No 3. Is this an ictal SPECT admission? No 4. Is the video-EEG recommended to assess daily EEG seizure burden, address new and concerning symptom-sign complex, and/or clarify syndromic epilepsy diagnosis? No 5. Is this patient on the ketogenic diet, modified Atkins' diet, or any other special diet for epilepsy? Is this admission to initiate the ketogenic diet? No PLAN: 1. Will begin continuous video-EEG monitoring with [employer] q4h and telemetry monitoring in place. 2. Will not modify home ASM dosing for first night. 3. Seizure precautions in place - blue rail pads on all bed rails (not blankets), fall precautions. 4. Lorazepam 1mg only for a generalized tonic-clonic seizures and/or seizures lasting at least 3 minutes. 5. We will continue to follow the patient while in the EMU. Anticipated length of stay: 48-hours. LEEROY Esquivel CNP I spent 70 minutes independently, physically present on 3N, the time was spent examining the patient, reviewing their data, counseling (coordinating care) and providing discussion regarding EMU plan of care. Additionally I spent 15 minutes jointly managing the care of this patient with my cosigningphysician. [1] No current facility-administered medications for this encounter. Cosigned by Sohail Hernandez MD PhD at 03/14/2025 11:42 AM EDT documented in this [facility]05-05-2025 History of Present illness Narrative* Mee Perez NP - 02/19/2025 1:00 PM EDT Images from the original note were not included. Department of Neurological Sciences Section of Epilepsy [facility] [address] [facility] [address] Dept: [phone] Dept Loc: [phone] . Visit type: follow-up Reason for Visit: Follow-up and Seizures (No new seizures to report) Objective HPI The patient is a 49 y.o. who lives at [facility] with a PMH significant for mood disorder, borderline personality disorder, psoriasis, and epilepsy since Jun 10, 1994 while at the [facility] when she experienced a convulsion. Previous provider ([facility]) followed her for kidney problemssince age 25 now with improved renal function. She reports her last EEG was several years ago. Shehas been in a wheelchair for 6 years this month. Interval Event: She is here today for follow-up. She was last seen by Dr. Hernandez on 12/08/2024. She reports no new seizures since her last event on 12/07/2024. Her current anti- epileptic regimen includes Keppra 500 mg twice daily, Depakote 250 mg in the morning and 500 mg at night, and Primidone 200 mg twice daily. Her most recent lab work (02/02/25) showed a Keppra level of 41 and a valproic acid level of 48. A previously ordered cvEEG/EMU admission has not been completed due to unsuccessful scheduling attempts. She continues to experience chronic hand shaking and occasional knee shaking, which have been ongoing since her first seizure in 1993. She notes that breathing treatments sometimes help alleviate these symptoms. She currently resides at [facility]. Prior History: Her fall frequency has worsened recently. She is in a motorized wheel chair today. She reports losing her balance, stating she uses a gait belt and walker. Her last seizure occurred yesterday morning (12/07/2024) and prior in Sep 2024 (?). She describes it as a brief left hand flexion greater than right in a dystonic posture and then her left arm shakes uncontrollably with inability to talk after stating, I think Im going into a seizure. She reports that when she went to the hospital she had a generalized convulsive event. Mental Status Exam Appearance: Well dressed, well groomed Behavior: Behaves appropriately during the encounter Social relatedness: Euthymic Speech/Language:The patient demonstrates appropriate tone, prosody, monika, phonetics, and syntax Mood: euthymic Affect: Full and appropriate to topic Orientation: Person, Place, Time and Situation Associations: Intact and linear Hallucinations: None Delusions: None Suicidal Ideation: No suicidal ideation, intent or plan. Homicidal Ideation: No homicidal ideation, intent or plan. Insight: Appropriate Judgment: Appropriate ER VISITS for Seizure: Review of Systems Neurological: Positive for seizures. Allergies Allergen Reactions Gabapentin Nausea And Vomiting and Unknown Hydrocodone-Acetaminophen Other and Unknown Vomiting Morphine Other, Unknown and Nausea And Vomiting Vomiting Ondansetron Other and Nausea And Vomiting Vomiting Other Phenytoin Unknown Promethazine Other, Unknown and Nausea And Vomiting Sick Acetaminophen Rash Other reaction(s): Rash Azithromycin Rash, Unknown and Nausea And Vomiting Codeine Other, Rash, Unknown and Nausea And Vomiting Vomiting Erythromycin Rash and Unknown Erythromycin Base Rash and Unknown Hydrocodone Rash and Unknown Hydromorphone Rash and Unknown Penicillins Rash and Unknown Tramadol Rash and Unknown Current Outpatient Medications Medication Sig Dispense Refill acetaminophen (Tylenol) 500 MG tablet Take by mouth. allopurinol (Zyloprim) 300 MG tablet Take 100 mg by mouth daily. amLODIPine (Norvasc) 10 MG tablet Take 5 mg by mouth daily. atorvastatin (Lipitor) 20 MG tablet bisacodyl (Dulcolax) 10 MG suppository Insert into the rectum Daily as needed for constipation. busPIRone (Buspar) 10 MG tablet Take by mouth 3 times daily. Calcium + Vitamin D3 600-10 MG-MCG tablet cholecalciferol (Vitamin D-3) 50 MCG (2000 UT) tablet Take 2,000 Units by mouth daily. Cyanocobalamin ER 1000 MCG tablet controlled-release Take 1,000 mcg by mouth in the morning. famotidine (Pepcid) 20 MG tablet guaiFENesin (Humibid 3) 400 MG tablet Take 400 mg by mouth every 6 hours as needed. levothyroxine (Synthroid, Levoxyl) 25 MCG tablet lidocaine (Lidoderm) 5 % patch Apply 1 patch topically Daily as needed for mild pain (1-3). Remove & discard patch within 12 hours or as directed by MD. lisinopril 20 MG tablet loratadine (Claritin) 10 MG tablet Take 10 mg by mouth. LORazepam (Ativan) 1 MG tablet May take 1 tab between noon and 4 pm if needed for tremors 30 tablet2 LORazepam (Ativan) 2 MG tablet Take 1 tablet (2 mg) by mouth 2 times daily. 8 AM and 8 PM 60 tablet2 magnesium hydroxide (Milk of Magnesia) 400 MG/5ML suspension Take by mouth Daily as needed for constipation. magnesium oxide (Mag-Ox) 400 MG tablet Take 400 mg by mouth in the morning. melatonin 10 MG tablet Take by mouth. metoprolol tartrate (Lopressor) 25 MG tablet 2 times daily. potassium chloride ER (Micro-K) 10 MEQ ER capsule senna-docusate (Lani-Colace) 8.6-50 MG tablet Take 2 tablets by mouth Nightly as needed. Sodium Phosphates (FLEET ENEMA RE) Insert into the rectum as needed. albuterol 108 (90 Base) MCG/ACT inhaler (Patient not taking: Reported on 10/26/2024) benzonatate (Tessalon) 200 MG capsule Take by mouth. (Patient not taking: Reported on 02/19/2025) calcium carbonate (Tums) 500 MG chewable tablet Chew 500 mg daily. clobetasol (Temovate) 0.05 % external solution Apply to affected areas on scalp BID x 6 weeks Stop using when clear. Repeat as needed for flares. Do not use on face, armpits, groin. 50 mL 3 clotrimazole-betamethasone (Lotrisone) cream desvenlafaxine (Pristiq) 50 MG 24 hr tablet Take 50 mg by mouth daily. Do not crush, chew, or split. Diclofenac Sodium (Voltaren) 1 % gel Apply topically every 12 hours. (Patient not taking: Reported on 10/26/2024) divalproex (Depakote ER) 250 MG 24 hr tablet Take 1 tab po QAM and 2 tabs po QPM 90 tablet 3 flurbiprofen (Ansaid) 100 MG tablet Take by mouth every 8 hours as needed. (Patient not taking: Reported on 02/19/2025) ketoconazole (NIZOral) 2 % shampoo Use to wash the scalp 3 times weekly allowing to sit 3 minutes before rinsing. May use regular shampoo and condition after. (Patient not taking: Reported on 02/19/2025) 120 mL 3 levETIRAcetam (Keppra) 500 MG tablet Take 1 tablet (500 mg) by mouth 2 times daily. 60 tablet 3 loperamide (Imodium A-D) 2 MG tablet Take by mouth as needed for diarrhea. (Patient not taking: Reported on 02/19/2025) meclizine (Antivert) 25 MG tablet Take 25 mg by mouth 3 times daily as needed. (Patient not taking:Reported on 02/19/2025) Menthol, Topical Analgesic, (Icy Hot) 5 % patch Apply topically. (Patient not taking: Reported on 02/19/2025) primidone (Mysoline) 50 MG tablet Take 4 tablets (200 mg) by mouth 2 times daily. 240 tablet 3 sertraline (Zoloft) 100 MG tablet Take 100 mg by mouth in the morning and 100 mg in the evening. (Patient not taking: Reported on 02/19/2025) triamcinolone (Kenalog) 0.1 % ointment Apply to affected areas behind ears BID x 2 weeks Stop usingwhen clear. Repeat as needed for flares. 80 g 1 No current facility-administered medications for this visit. Past Medical History: Diagnosis Date Anxiety Chronic kidney disease Epilepsy (HCC) Essential hypertension Gastro-esophageal reflux disease without esophagitis Hypokalemia Hypothyroidism Obesity Personal history of urinary (tract) infections Psoriasis Repeated falls Thrombocytopenia (HCC) Social History Tobacco Use Smoking status: Never Smokeless tobacco: Never Substance Use Topics Alcohol use: Never Past Surgical History: Procedure Laterality Date BREAST REDUCTION Family History Problem Relation Name Age of Onset Heart disease Mother Parkinson's Disease Mother Dementia Mother Thyroid disease Father Asthma Sister Seizures Sister Asthma Sister Asthma Brother No Known Problems Maternal Grandmother No Known Problems Maternal Grandfather No Known Problems Paternal Grandmother No Known Problems Paternal Grandfather No Known Problems Daughter There were no vitals taken for this visit. Physical Exam NEUROLOGIC: General Appearance: Well nourished, well developed, and in no apparent distress. Mental Status Exam: The patient is somnolent but arousable. They have normal memory, fund of knowledge, attention/concentration and language. Spells 'HOUSE' forward but not backward without errors. Verbal memory is normal. Language is fluent with intact comprehension and repetition. Cranial Nerves: III, IV, : Pupils: equal, round, and reactive to light, extra ocular movements intact, no nystagmus V: Facial sensation: intact to light touch bilaterally VII: Facial strength: symmetric on smile and blink VIII: Hearing: intact to voice/conversation IX: No dysarthria XI: Shoulder shrug: symmetric against gravity Motor: Normal bulk and tone. No atrophy or fasciculations observed. No tremors observed. Drift Arm abduction Elbow flexion Elbow extension Wrist flexion Wrist extension Finger extension Hand field inspector Finger abduction RUE Absent 5 5 5 5 5 5 LUE Absent 5 5 5 5 5 5 Drift Hip flexion Knee extension Knee flexion Foot dorsiflexion Toe dorsiflexion Plantar flexion RLE 5 5 5 5 5 LLE 5 5 5 5 5 Fine Motor: no difficulty with finger-tapping Sensory: Bilaterally intact to light touch. Double simultaneous stimulation without extinction. Romberg absent. Coordination: [id number] without dysmetria bilaterally. Reflexes: Deferred Gait: on cart Data Reviewed and Summarized Labs: Component Ref Range & Units 6 mo ago Sodium 135 - 145 mmol/L 139 Potassium 3.5 - 5.1 mmol/L 4.4 Chloride 98 - 108 mmol/L 108 Bicarbonate 21 - 32 mmol/L 24 Anion Gap 10 - 20 mmol/L 11 Glucose 65 - 99 mg/dL 81 BUN 8 - 25 mg/dL 20 Creatinine 0.40 - 1.10 mg/dL 1.34 High eGFR >=60 mL/min/1.73 m2 48 Low Comment: Estimated GFR was calculated using the 2020 CKD-EPI creatinine equation. BUN/Creatinine Ratio 10.0 - 20.0 14.9 Total Protein 6.0 - 8.0 g/dL 5.5 Low Albumin 3.2 - 5.2 g/dL 3.6 Calcium 8.4 - 10.2 mg/dL 8.5 Alkaline Phosphatase 40 - 150 U/L 72 AST 0-35 U/L 22 ALT 0-35 U/L 11 Total Bilirubin 0.0 - 1.3 mg/dL 0.2 Component Ref Range & Units 6 mo ago WBC 4.50 - 11.00 K/mcL 4.08 Low RBC 4.00 - 5.20 M/mcL 4.17 Hemoglobin 12.0 - 16.0 g/dL 12.8 Hematocrit 36.0 - 46.0 % 38.9 MCV 80.0 - 100.0 fL 93.3 MCH 26.0 - 34.0 pg 30.7 MCHC 31.0 - 37.0 g/dL 32.9 Platelets 150 - 400 K/mcL 74 Low RDW - CV 11.6 - 14.8 % 13 MPV 9.4 - 12.4 fL 10.1 Nucleated RBC % 0 Nucleated RBC Abs 0.00 - 0.00 K/mcL 0 Imaging/Testing: Assessment and Plan Epilepsy Classification: epilepsy NOS Etiology: structural Mood: euthymic Comorbidities: mood disorder Adore is a 49 right handed y.o. who returns for mood disorder, borderline personality disorder, psoriasis, and epilepsy since Jun 10, 1994 while at the [facility] when she experienced a convulsion. Previous provider ([facility]) followed her for kidney problems since age 25 now with improved renal function. She reports her last EEG was several years ago at [facility]. Her fall frequency has worsened recently. She is in a motorized wheel chair today. She reports losing her balance, stating she uses a gait belt and walker. Her last seizure occurred in Nov/Sep 2024. She describes it as a brief left hand flexion greater than right in a dystonic posture and then her left arm shakes uncontrollably with inability to talk after stating, I think Im going into a seizure. I am concerned Reema is experiencing nocturnal seizures on ASM polytherapy. I am recommending shebe admitted for diagnostic vEEG monitoring with an attempt to transition from Depakote and primidone (+/- Keppra) to another ASM regimen ( 3. Fycompa vs 2. topiramate vs 1. zonisamide). Will not change ASM her ASM regimen prior to admission. Will not change her ASM at this time. Adore is here today for follow-up. No new seizures since her last event on 12/07/2024. Her current anti-epileptic regimen includes Keppra 500 mg twice daily, Depakote 250 mg in the morning and 500 mg at night, and Primidone 200 mg twice daily. Her most recent lab work (02/02/25) showed a Keppra levelof 41 and a valproic acid level of 48. A previously ordered cvEEG/EMU admission has not been completed due to unsuccessful scheduling attempts. She currently resides at [facility]. We went over her brought- in lab reports and reviewed all her medications. Her triglyceride level is high, vitamin D level was 16, low. BUN and Creatinine level slightly elevated. Plan: Re-order cvEEG/EMU admission. Continue current anti-epileptic medications; printed prescriptions provided. 1. Focal epilepsy with impairment of consciousness, intractable (HCC) - EEG SNF MONITORING 2 - 3 DAY EVAL - levETIRAcetam (Keppra) 500 MG tablet; Take 1 tablet (500 mg) by mouth 2 times daily., Starting Wed02/19/2025, Until Wed06/19/2025, Print - primidone (Mysoline) 50 MG tablet; Take 4 tablets (200 mg) by mouth 2 times daily., Starting Wed02/19/2025, Until Wed06/19/2025, Print - divalproex (Depakote ER) 250 MG 24 hr tablet; Take 1 tab po QAM and 2 tabs po QPM, Print 2. 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) - levETIRAcetam (Keppra) 500 MG tablet; Take 1 tablet (500 mg) by mouth 2 times daily., Starting Wed02/19/2025, Until Wed06/19/2025, Print - primidone (Mysoline) 50 MG tablet; Take 4 tablets (200 mg) by mouth 2 times daily., Starting Wed02/19/2025, Until Wed06/19/2025, Print - divalproex (Depakote ER) 250 MG 24 hr tablet; Take 1 tab po QAM and 2 tabs po QPM, Print She currently resides at [facility]. Please call [phone] to schedule EEG. Follow up in about 2 months (around 04/21/2025). Education Mee Perez NP Epilepsy Clinic Outpatient Progress Note & Billing by Time (2020 NA Guidelines): Time: (All time spent by provider-only, including documentation, for pre-/nwon-du-cvre/post- visit on the day of the visit ending at midnight on same day of visit). Encounter Code Level Time Spent (min) New Patient [id number] 15-29 [id number] 30-44 [id number] 45-59 48704 60-74 Established Patient [id number] 10-19 23076 20-29 87238 30-39 07934 40-54 Preparing for visit (review testing/procedures/notes) (min) Obtaining history (minutes) 15 Counseling, educating patient/family (minutes) 15 Ordering testing (minutes) Communicating with other providers (minutes) Charting (minutes) 15 Independently interpreting/documenting results (minutes) Communicating test results to patient/family (minutes) Total Time Today (min) = 45 documented in this encounterSCleveland Clinic [facility] [id number] Telephone encounter Note* Telephone Encounter - Latesha Krause MA - 01/26/2025 12:46 PM EDT Spoke with Tanesha and let her know providers message. [facility] [id number] Miscellaneous Notes* Telephone Encounter - Latesha Krause MA - 01/26/2025 12:46 PM EDT Spoke with Tanesha and let her know providers message. * Telephone Encounter - Valentina Chopra MD - 01/26/2025 12:32 PM EDT Tell them ok, but I am not a fan of her getting that first dose before she is up for the day. * Telephone Encounter - Khalida Drake - 01/26/2025 10:17 AM EDT Name of caller: Tanesha Contact phone number: [phone] Relationship to Patient: Maddie mendez [facility] Provider: Dr. Chopra Practice: [facility] Chief Complaint/Reason for Call: Tanesha states that she would like to know if the patient could takeher LORazepam (Ativan) 2 MG tablet at 6 AM and 6 PM instead of 8 AM and 8 PM so that aligns with her medication pass. Please call and advise. Best time of day caller can be reached: Any Patient advised that office/PCP has 24-48 business hours to return their call: Yes documented in this encounterSCleveland Clinic Hillcrest [id number] Telephone encounter Note* Telephone Encounter - Valentina Chopra MD - 01/26/2025 12:32 PM EDT Tell them ok, but I am not a fan of her getting that first dose before she is up for the day. [facility] [id number] Telephone encounter Note* Telephone Encounter - Khalida Drake - 01/26/2025 10:17 AM EDT Name of caller: Tanesha Contact phone number: [phone] Relationship to Patient: Maddie mendez [facility] Provider: Dr. Chopra Practice: [facility] Chief Complaint/Reason for Call: Tanesha states that she would like to know if the patient could takeher LORazepam (Ativan) 2 MG tablet at 6 AM and 6 PM instead of 8 AM and 8 PM so that aligns with her medication pass. Please call and advise. Best time of day caller can be reached: Any Patient advised that office/PCP has 24-48 business hours to return their call: Yes [facility] [id number] History of Present illness Narrative* Valentina Chorpa MD - 01/25/2025 2:20 PM EDT Images from the original note were not included. [facility] [address] [facility] [address] Dept: [phone] Dept Loc: [phone] Valentina Chopra MD CHIEF COMPLAINT: Chief Complaint Patient presents with Follow-up Seizures HISTORY OF PRESENT ILLNESS: The patient is a 49 y.o. who returns for seizures and tremors. She reports that she is having a NEWISSUE: dizziness. She reports that this started recently. If she changes her position or moves her head too quickly, then she gets dizziness. Do you have to be up to have the dizziness or can you have the dizziness when seated or lying down?Yes When you have an attack of dizziness how long does it last? Seconds: vestibular paroxysmia, cardiogenic dizziness (Less than 2 minutes)? Yes Minutes: vertebrobasilar transient ischemic attack (TIA), vestibular migraine, panic disorder, delayed orthostatic hypotension, hypoglycemia (2 min-60 min)? No Hours: vestibular migraine, M ni re disease, toxic/metabolic (Over an hour)? No Days: vestibular migraine? Do you feel like things are moving in when you know they are actually still?Yes Do you have otalgia?Both Do you have tinnitus?No If so, which ear? Left/Right Do you get dizzy turning your head? Yes Do you have trouble with dizziness getting up from a chair or from a seat?No Have you had falls?No Is there any vision change with the dizziness?No Do you have headache associated with the dizziness?No Have you had hearing loss with your dizziness? No She thinks she has had seizures since she last saw me. She reorts that she is not doing well without the lorazepam in the afternoon. She reports taht her gait is worse and she is more unsteady. Past Medical History: has a past medical history of Anxiety, Chronic kidney disease, Epilepsy ([facility]), Essential hypertension, Gastro-esophageal reflux disease without esophagitis, Hypokalemia, Hypothyroidism, Obesity, Personal history of urinary (tract) infections, Psoriasis, Repeated falls, and Thrombocytopenia ([facility]). Past Surgical History: has a past surgical history that includes Breast reduction. Medications: Current Outpatient Medications: acetaminophen (Tylenol) 500 MG tablet, Take by mouth., Disp: , Rfl: allopurinol (Zyloprim) 300 MG tablet, Take 100 mg by mouth daily., Disp: , Rfl: amLODIPine (Norvasc) 10 MG tablet, Take 5 mg by mouth daily., Disp: , Rfl: atorvastatin (Lipitor) 20 MG tablet, , Disp: , Rfl: benzonatate (Tessalon) 200 MG capsule, Take by mouth., Disp: , Rfl: bisacodyl (Dulcolax) 10 MG suppository, Insert into the rectum Daily as needed for constipation., Disp: , Rfl: busPIRone (Buspar) 10 MG tablet, Take by mouth 3 times daily., Disp: , Rfl: Calcium + Vitamin D3 600-10 MG-MCG tablet, , Disp: , Rfl: calcium carbonate (Tums) 500 MG chewable tablet, Chew 500 mg daily., Disp: , Rfl: clobetasol (Temovate) 0.05 % external solution, Apply to affected areas on scalp BID x 6 weeks Stopusing when clear. Repeat as needed for flares. Do not use on face, armpits, groin., Disp: 50 mL, Rfl: 3 clotrimazole-betamethasone (Lotrisone) cream, , Disp: , Rfl: Cyanocobalamin ER 1000 MCG tablet controlled-release, Take 1,000 mcg by mouth in the morning., Disp: , Rfl: desvenlafaxine (Pristiq) 50 MG 24 hr tablet, Take 50 mg by mouth daily. Do not crush, chew, or split., Disp: , Rfl: divalproex (Depakote ER) 250 MG 24 hr tablet, Take 1 tab po QAM and 2 tabs po QPM, Disp: 90 tablet,Rfl: 11 famotidine (Pepcid) 20 MG tablet, , Disp: , Rfl: flurbiprofen (Ansaid) 100 MG tablet, Take by mouth every 8 hours as needed., Disp: , Rfl: guaiFENesin (Humibid 3) 400 MG tablet, Take 400 mg by mouth every 6 hours as needed., Disp: , Rfl: ketoconazole (NIZOral) 2 % shampoo, Use to wash the scalp 3 times weekly allowing to sit 3 minutes before rinsing. May use regular shampoo and condition after., Disp: 120 mL, Rfl: 3 levETIRAcetam (Keppra) 500 MG tablet, Take 1 tablet (500 mg) by mouth 2 times daily., Disp: 60 tablet, Rfl: 0 levothyroxine (Synthroid, Levoxyl) 25 MCG tablet, , Disp: , Rfl: lidocaine (Lidoderm) 5 % patch, Apply 1 patch topically Daily as needed for mild pain (1-3). Remove& discard patch within 12 hours or as directed by MD., Disp: , Rfl: lisinopril 20 MG tablet, , Disp: , Rfl: loperamide (Imodium A-D) 2 MG tablet, Take by mouth as needed for diarrhea., Disp: , Rfl: loratadine (Claritin) 10 MG tablet, Take 10 mg by mouth., Disp: , Rfl: magnesium hydroxide (Milk of Magnesia) 400 MG/5ML suspension, Take by mouth Daily as needed for constipation., Disp: , Rfl: magnesium oxide (Mag-Ox) 400 MG tablet, Take 400 mg by mouth in the morning., Disp: , Rfl: melatonin 10 MG tablet, Take by mouth., Disp: , Rfl: Menthol, Topical Analgesic, (Icy Hot) 5 % patch, Apply topically., Disp: , Rfl: metoprolol tartrate (Lopressor) 25 MG tablet, 2 times daily., Disp: , Rfl: potassium chloride ER (Micro-K) 10 MEQ ER capsule, , Disp: , Rfl: primidone (Mysoline) 50 MG tablet, Take 4 tablets (200 mg) by mouth 2 times daily., Disp: 240 tablet, Rfl: 11 senna-docusate (Lani-Colace) 8.6-50 MG tablet, Take 2 tablets by mouth Nightly as needed., Disp: , Rfl: Sodium Phosphates (FLEET ENEMA RE), Insert into the rectum as needed., Disp: , Rfl: triamcinolone (Kenalog) 0.1 % ointment, Apply to affected areas behind ears BID x 2 weeks Stop using when clear. Repeat as needed for flares., Disp: 80 g, Rfl: 1 albuterol 108 (90 Base) MCG/ACT inhaler, , Disp: , Rfl: Diclofenac Sodium (Voltaren) 1 % gel, Apply topically every 12 hours. (Patient not taking: Reportedon 10/26/2024), Disp: , Rfl: LORazepam (Ativan) 1 MG tablet, May take 1 tab between noon and 4 pm if needed for tremors, Disp: 30 tablet, Rfl: 2 LORazepam (Ativan) 2 MG tablet, Take 1 tablet (2 mg) by mouth 2 times daily. 8 AM and 8 PM, Disp: 60 tablet, Rfl: 2 meclizine (Antivert) 25 MG tablet, Take 25 mg by mouth 3 times daily as needed. (Patient not taking: Reported on 01/25/2025), Disp: , Rfl: sertraline (Zoloft) 100 MG tablet, Take 100 mg by mouth in the morning and 100 mg in the evening. (Patient not taking: Reported on 01/25/2025), Disp: , Rfl: Allergies: Gabapentin, Hydrocodone-acetaminophen, Morphine, Ondansetron, Other, Phenytoin, Promethazine, Acetaminophen, Azithromycin, Codeine, Erythromycin, Erythromycin base, Hydrocodone, Hydromorphone, Penicillins, and Tramadol Social History: Social History Socioeconomic History Marital status: Spouse name: Not on file Number of children: Not on file Years of education: Not on file Highest education level: Not on file Occupational History Not on file Tobacco Use Smoking status: Never Smokeless tobacco: Never Substance and Sexual Activity Alcohol use: Never Drug use: Never Sexual activity: Not on file Other Topics Concern Not on file Social History Narrative Not on file Social Drivers of Health Financial Resource Strain: Low Risk (06/05/2024) Received from [facility] Overall Financial Resource Strain (CARDIA) Difficulty of Paying Living Expenses: Not very hard Food Insecurity: No Food Insecurity (06/05/2024) Received from [facility] Hunger Vital Sign Worried About Running Out of Food in the Last Year: Never true Ran Out of Food in the Last Year: Never true Transportation Needs: No Transportation Needs (06/05/2024) Received from [facility] PRAPARE - Transportation Lack of Transportation (Medical): No Lack of Transportation (Non-Medical): No Physical Activity: Not on file Stress: Not on file Social Connections: Not on file Intimate Partner Violence: Not At Risk (06/05/2024) Received from [facility] Humiliation, Afraid, Rape, and Kick questionnaire Fear of Current or Ex-Partner: No Emotionally Abused: No Physically Abused: No Sexually Abused: No Housing Stability: Low Risk (06/05/2024) Received from [facility] Housing Stability Vital Sign Unable to Pay for Housing in the Last Year: No Number of Times Moved in the Last Year: 1 Homeless in the Last Year: No Family History: Family History Problem Relation Name Age of Onset Heart disease Mother Parkinson's Disease Mother Dementia Mother Thyroid disease Father Asthma Sister Seizures Sister Asthma Sister Asthma Brother No Known Problems Maternal Grandmother No Known Problems Maternal Grandfather No Known Problems Paternal Grandmother No Known Problems Paternal Grandfather No Known Problems Daughter REVIEW OF SYSTEMS: Review of Systems Constitutional: Negative for appetite change, chills, diaphoresis, fever and unexpected weight change. HENT: Negative for dental problem and mouth sores. Eyes: Negative for discharge and itching. Respiratory: Negative for chest tightness. Cardiovascular: Negative for chest pain and leg swelling. Gastrointestinal: Negative for rectal pain and vomiting. Endocrine: Negative for polydipsia, polyphagia and polyuria. Genitourinary: Negative for decreased urine volume, flank pain and genital sores. Musculoskeletal: Negative for arthralgias. Skin: Negative for color change. Allergic/Immunologic: Negative for food allergies and immunocompromised state. Neurological: Positive for dizziness, tremors and seizures. Hematological: Negative for adenopathy. Does not bruise/bleed easily. Psychiatric/Behavioral: Negative for agitation, behavioral problems, decreased concentration, sleepdisturbance and suicidal ideas. PHYSICAL EXAM: Vitals: BP 137/78 (BP Location: Left arm, Patient Position: Sitting, BP Cuff Size: Adult) Pulse 76 Ht 4' 7 (1.397 m) BMI 36.49 kg/m General Appearance: Patient is in no apparent distress. Head is normocephalic, atraumatic Cardiovascular: Regular rate and rhythm. No heart murmurs. No carotid bruit Neurologic: Mentation: Alert and oriented x 3 to person, place and time. Speech and Language: Speech is dysarthric off and on and language grossly normal Concentration and Attention: Concentration normal Memory: Memory grossly normal. Fund of Knowledge: Fund of knowledge grossly normal Cranial Nerves: II, III, IV, V, , VII, VIII, IX, X, XI, XII tested and were intact including fundoscopic exam (optic discs) and visual field to confrontation. Motor: Strength:Strength 5 out of 5 with normal tone Alternating Movements: Normal Cogwheel Rigidity: None Tone: Tone is normal Tremor / Involuntary Movements: Bilateral high amp low frequency tremor. She has primarily intention tremor. She has occl myoclonic jerking. Deep Tendon Reflexes: 1 out of 4 symmetrical in all four limbs. Coordination: Mild dysmetria but otherwise normal coordination upper and lower extremities DATA CT HEAD OR BRAIN W/O CONTRAST CLINICAL STATEMENT: pain/headache COMPARISON: 12/27/2009 FINDINGS: No mass, hemorrhage, or acute infarct is identified. No extra-axial fluid collection or midline shift is seen. The ventricles and sulci are normal in appearance. The hill-white matter differentiation is maintained. A 1.8 cm mucous retention cyst or polyp is again identified with in the LEFT maxillary sinus. The visualized cranium is intact. IMPRESSION: No acute intracranial process. A preliminary report was sent at the time of the exam. Component 5 yr ago Check Processing Clerk EXAMINATION: NM I-123 BRAIN SPECT DOPAMINE TRANSPORTER [...] and caudate nuclei, bilaterally. IMPRESSION: Normal study. Interpreted By: Susan Bhakta MD Preliminary Report By: Susan Bhakta MD Electronically Signed By: Susan Bhakta MD Dictated Date: 04/12/2014 8:46:00 AM Prelim Date: 04/12/2014 8:52:13 AM Sign Date: 04/12/2014 8:52:13 AM Aleksey Bhardwaj MD - 03/16/2019 4:18 PM EDT Aleksey Bhardwaj MD 03/16/2019 4:19 PM [facility] EEG Report Reason for EEG: Seizures. [...] epileptiform discharges or ictal activity was seen. CT MAXILLOFACIAL WITHOUT CONTRAST; CT HEAD OR BRAIN WITHOUT CONTRAST HISTORY: ORDERING SYSTEM PROVIDED HISTORY: nose injury, TECHNOLOGIST PROVIDED HISTORY: Injury/Trauma Reason for exam: pt had a seizure, FELL OFF TOILET.STRUCK TOP OF HEAD, head and neck pain, tremors Encounter Type: Initial Mechanism of injury: fall ORDERING SYSTEM PROVIDED DIAGNOSIS CODES: ; ORDERING SYSTEM PROVIDED HISTORY: head trauma, seizure, TECHNOLOGIST PROVIDED HISTORY: Injury/Trauma Reason for exam: pt had a seizure, FELL OFF TOILET.STRUCK TOP OF HEAD, head and neck pain, tremors Encounter Type: Initial Mechanism of injury: fall ORDERING SYSTEM PROVIDED DIAGNOSIS CODES: COMPARISON: None TECHNIQUE: CT examination of the head without IV contrast. Dose reduction techniques were achieved by using automated exposure control and/or adjustment of mAand/or kV according to patient size and/or use of iterative reconstruction technique. FINDINGS: BRAIN: No edema, hemorrhage, mass, acute infarction, or inappropriate atrophy. CSF SPACES: No hydrocephalus, subarachnoid hemorrhage, or mass. Appropriate for age. SKULL: No fracture, mass, or other significant visible lesion. SINUSES: Mucocele versus retention cyst within the base of the left maxillary sinus suggestive of chronic sinusitis. ORBITS: No appreciable abnormality on the limited views. Facial bones:: Nondisplaced fractures of the right and left nasal bones. IMPRESSION: 1. Normal CT appearance of the brain. 2. Nondisplaced fractures of the right and left nasal bones. 3. Left maxillary chronic sinusitis. Workstation ID: [id number] Exam End: 12/01/20 12:39 Specimen Collected: 12/01/20 13:00 CT CERVICAL SPINE WITHOUT CONTRAST HISTORY: ORDERING SYSTEM PROVIDED HISTORY: Neck pain, recent trauma, TECHNOLOGIST PROVIDED HISTORY: Injury/Trauma Reason for exam: pt had a seizure, FELL OFF TOILET.STRUCK TOP OF HEAD, head and neck pain, tremors Encounter Type: Initial Mechanism of injury: ORDERING SYSTEM PROVIDED DIAGNOSIS CODES: COMPARISON: None TECHNIQUE: Multiplanar CT imaging of the cervical spine without IV contrast. Dose reduction techniques were achieved by using automated exposure control and/or adjustment of mAand/or kV according to patient size and/or use of iterative reconstruction technique. FINDINGS: VERTEBRAL BODIES: Mild straightening of the normal lordotic curvature. No fracture, pars defect, orosseous lesion. FACET JOINTS: No disruption or abnormal widening. CERVICAL DISCS: Moderate narrowing C3-4, C4-5, C5-6 with small posterior endplate osteophytes. CENTRAL CANAL: No evidence of hemorrhage. PARASPINAL AREA: No visible mass. IMPRESSION: 1. No acute bone abnormality. 2. Multilevel mild-moderate degenerative disc disease. Workstation ID: [id number] Exam End: 12/01/20 12:42 Specimen Collected: 12/01/20 13:09 CT HEAD WO CONTRAST; 07/10/2021 7:01 am INDICATION: head injury. COMPARISON: CT Brain, 15 May 2021 ACCESSION NUMBER(S): [id number] ORDERING CLINICIAN: LARRY EUGENE TECHNIQUE: CT of the brain from the skull vertex to the skull base, without intravenous contrast FINDINGS: ACUTE INTRA-AXIAL HEMORRHAGE: Negative ACUTE EXTRA-AXIAL/SUBDURAL HEMORRHAGE: Negative ACUTE INTRACRANIAL MASS EFFECT: Negative CT EVIDENCE OF ACUTE / SUBACUTE TERRITORIAL ISCHEMIA: Negative VENTRICLES: Normal caliber and configuration OTHER BRAIN FINDINGS: No additional findings to note INCLUDED PARANASAL SINUSES: Mucous retention cyst or polyp in left maxillary; others clear INCLUDED MASTOID AIR CELLS: All clear SKULL: No depressed skull fracture. Marked hyperostosis frontalis EXTRACRANIAL SOFT TISSUES: Swelling/hematoma in the scalp of the forehead at and to the left of the midline above the orbital ridge IMPRESSION: NO ACUTE INTRACRANIAL PROCESS. SKULL INTACT. Exam End: 07/10/21 07:01 Sree Cordoba MD - 08/16/2021 EXAMINATION: CT HEAD OR BRAIN WITHOUT CONTRAST DATE: 08/16/2021 HISTORY: Head trauma, abnormal mental status (Age 19-64y); fall w/ [facility], persistent n/v [facility] PCP 30 min appt Injury/Trauma or Illness?:Injury/Trauma How long have you had these symptoms (acute/chronic)?:Acute Reason for exam?:trauma Type of Exam?:Initial COMPARISON: CT brain from [place] of 12/01/2020. TECHNIQUE: Noncontrast CT of the brain was performed. Dose reduction techniques were achieved by using automated exposure control and/or adjustment of mA and/or kV according to patient size and/or use of iterative reconstruction technique. FINDINGS: Motion artifact is shown. Overall ventricles, basal cisterns and sulci are normal in size and configuration. No intracranial hemorrhage noted. No frankly destructive bony lesion. IMPRESSION: Accounting for motion-related artifact, no acute brain parenchymal abnormality, hemorrhage or skullfracture is seen. No suspicious change from 12/01/2020 CT brain at [place]. Nini Garcia MD - 12/22/2022 Patient Name: REEMA SHAH STUDY: CT HEAD WO CONTRAST; 08/24/2022 7:43 am INDICATION: fall, history of thrombocytopenia, abrasion L parietal scalp . COMPARISON: 05/09/2022 ACCESSION NUMBER(S): [id number] ORDERING CLINICIAN: ANDRES HUSSEIN TECHNIQUE: Unenhanced CT images of the head were obtained. FINDINGS: Mild motion artifact noted on the more superior images. The brain parenchyma, ventricular system and extra-axial spaces are within normal limits as visualized sizable. Hill-white differentiation is grossly intact. There is no sizable acute intracranial hemorrhage, mass effect or midline shift. No extraaxial fluid collection. Soft tissue swelling in the left parietal scalp. No acute displaced calvarial fracture. Changes of hyperostosis frontalis interna noted. Mucosal thickening in the posterior left maxillary sinus. Remaining visualized paranasal sinuses are clear. IMPRESSION: No acute intracranial hemorrhage or mass-effect on slightly limited, motion compromised exam. Soft tissue swelling in the left parietal scalp noted. Mild left maxillary sinus mucosal thickening. Exam End: 08/24/22 07:43 Jeb Carranza MD - 01/21/2023 Interpreted By: JEB CARRANZA MD Patient Name: REEMA SHAH STUDY: CT HEAD WO CONTRAST; 01/21/2023 5:05 pm INDICATION: head injury . COMPARISON: 11/26/2022 ACCESSION NUMBER(S): [id number] ORDERING CLINICIAN: LARRY EUGENE TECHNIQUE: Noncontrast axial CT scan of head was performed. Multiplanar reconstructions FINDINGS: No acute intracranial hemorrhage, mass effect, midline shift, or herniation. No evidence of hydrocephalus. The ventricles and sulci are unremarkable for age. Ethmoid and sphenoid sinus mucosal thickening. Hypoplastic frontal sinuses. No acute osseous abnormality of the calvarium. No destructive bone lesion. Hyperostosis frontalis interna. IMPRESSION: No acute intracranial abnormality. Consider follow-up with MRI as warranted. Exam End: -- Specimen Collected: 01/21/23 17:05 Jeb Carranza MD - 01/21/2023 Interpreted By: JEB CARRANZA MD Patient Name: ROSA ELENA SHAHORAH STUDY: CT C-SPINE WO CONTRAST; 01/21/2023 5:05 pm INDICATION: fall with head injury . COMPARISON: None. ACCESSION NUMBER(S): [id number] ORDERING CLINICIAN: LARRY EUGENE TECHNIQUE: Axial CT images of the cervical spine are obtained. Axial, coronal and sagittal reconstructions are provided for review. FINDINGS: No acute fracture or subluxation. No vertebral body or disc height loss. Scattered marginal osteophytes C3-C6. Facet arthropathy scattered throughout the cervical spine. No prevertebral hematoma. IMPRESSION: No evidence for an acute fracture or subluxation of the cervical spine. Exam End: -- Specimen Collected: 01/21/23 17:05 Dai Bone DO - 07/16/2023 Interpreted By: DAI BONE DO Patient Name: MANDY SHAHH STUDY: CT HEAD WO CONTRAST; 07/16/2023 12:05 am INDICATION: stable . TINEO d/t htn this evening Presented DX Code: R51.9 Headache, unspecified COMPARISON: CT head 01/21/2023 ACCESSION NUMBER(S): [id number] ORDERING CLINICIAN: CAREN GILMAN TECHNIQUE: Noncontrast CT axial images were obtained through the brain. Coronal and sagittal reformats were performed. FINDINGS: The ventricles, sulci and basal cisterns are within normal limits. The mancilla-white matter differentiation is intact. No acute territorial infarct. There is no mass effect or midline shift. There is no extraaxial fluid collection. There is no intracranial hemorrhage. No depressed calvarial fracture. Redemonstration of hyperostosis frontalis interna and hypoplastic frontal sinuses. No air-fluid levels at the visualized paranasal sinuses. The mastoid air cells are clear. IMPRESSION: 1. No acute intracranial hemorrhage or acute territorial infarct. Levetiracetam 21 on 11/14/24 ASSESSMENT AND PLAN: Diagnosis Plan 1. 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) Valproic acid level, total LEVETIRACETAM LEVEL Hepatic function panel Valproic acid level, total LEVETIRACETAM LEVEL Hepatic function panel LORazepam (Ativan) 2 MG tablet 2. Focal epilepsy with impairment of consciousness, intractable (HCC) Valproic acid level, total LEVETIRACETAM LEVEL Hepatic function panel Valproic acid level, total LEVETIRACETAM LEVEL Hepatic function panel 3. Tremor LORazepam (Ativan) 2 MG tablet LORazepam (Ativan) 1 MG tablet 4. Dizziness Valproic acid level, total LEVETIRACETAM LEVEL Hepatic function panel Valproic acid level, total LEVETIRACETAM LEVEL Hepatic function panel Dr. Hernandez's help is appreciated. Will follow. Continue current regimen. Will go ahead and return the lorazepam to 2mg BID and in the afternoon prn 1 mg lorazepam. Will see if her dizziness improves with the return of the lorazepam to TID. I spent 40 minutes caring for this patient today, reviewing labs and records, seeing the patient, documenting in the record and arranging for studies. documented in this [facility]02-21-2025 History of Present illness Narrative* Sohail Hernandez MD PhD - 12/08/2024 2:00 PM EST Images from the original note were not included. Department of Neurological Sciences Section of Epilepsy [facility] [address] [facility] [address] Dept: [phone] Dept Loc: [phone] . Visit type: follow-up Reason for Visit: Follow-up and Seizures (Had a seizures last night lasted 10 minutes ) Objective HPI The patient is a 49 y.o. who lives at [facility] with a PMH significant for mood disorder, borderline personality disorder, psoriasis, and epilepsy since Jun 10, 1994 while at the [facility] when she experienced a convulsion. Previous provider ([facility]) followed her for kidney problemssince age 25 now with improved renal function. She reports her last EEG was several years ago. Shehas been in a wheelchair for 6 years this month. Her fall frequency has worsened recently. She is in a motorized wheel chair today. She reports losing her balance, stating she uses a gait belt and walker. Her last seizure occurred yesterday morning () and prior in Sep 2024 (?). She describes it as a brief left hand flexion greater than right in a dystonic posture and then her left arm shakes uncontrollably with inability to talk after stating, I think Im going into a seizure. She reports that when she went to the hospital she had a generalized convulsive event. Mental Status Exam Appearance: Well dressed, well groomed Behavior: Behaves appropriately during the encounter Social relatedness: Euthymic Speech/Language:The patient demonstrates appropriate tone, prosody, monika, phonetics, and syntax Mood: euthymic Affect: Full and appropriate to topic Orientation: Person, Place, Time and Situation Associations: Intact and linear Hallucinations: None Delusions: None Suicidal Ideation: No suicidal ideation, intent or plan. Homicidal Ideation: No homicidal ideation, intent or plan. Insight: Appropriate Judgment: Appropriate ER VISITS for Seizure: Review of Systems Allergies Allergen Reactions Gabapentin Nausea And Vomiting and Unknown Hydrocodone-Acetaminophen Other and Unknown Vomiting Morphine Other, Unknown and Nausea And Vomiting Vomiting Ondansetron Other and Nausea And Vomiting Vomiting Other Phenytoin Unknown Promethazine Other, Unknown and Nausea And Vomiting Sick Acetaminophen Rash Other reaction(s): Rash Azithromycin Rash, Unknown and Nausea And Vomiting Codeine Other, Rash, Unknown and Nausea And Vomiting Vomiting Erythromycin Rash and Unknown Erythromycin Base Rash and Unknown Hydrocodone Rash and Unknown Hydromorphone Rash and Unknown Penicillins Rash and Unknown Tramadol Rash and Unknown Current Outpatient Medications Medication Sig Dispense Refill acetaminophen (Tylenol) 500 MG tablet Take by mouth. allopurinol (Zyloprim) 300 MG tablet Take 300 mg by mouth in the morning. amLODIPine (Norvasc) 10 MG tablet Take 10 mg by mouth in the morning. atorvastatin (Lipitor) 20 MG tablet bisacodyl (Dulcolax) 10 MG suppository Insert into the rectum Daily as needed for constipation. busPIRone (Buspar) 10 MG tablet Calcium + Vitamin D3 600-10 MG-MCG tablet calcium carbonate (Tums) 500 MG chewable tablet Chew 500 mg daily. clobetasol (Temovate) 0.05 % external solution Apply to affected areas on scalp BID x 6 weeks Stop using when clear. Repeat as needed for flares. Do not use on face, armpits, groin. 50 mL 3 Cyanocobalamin ER 1000 MCG tablet controlled-release Take 1,000 mcg by mouth in the morning. desvenlafaxine (Pristiq) 50 MG 24 hr tablet Take 50 mg by mouth daily. Do not crush, chew, or split. divalproex (Depakote ER) 250 MG 24 hr tablet Take 1 tab po QAM and 2 tabs po QPM 90 tablet 11 famotidine (Pepcid) 20 MG tablet flurbiprofen (Ansaid) 100 MG tablet Take by mouth every 8 hours as needed. guaiFENesin (Humibid 3) 400 MG tablet Take 400 mg by mouth every 6 hours as needed. ketoconazole (NIZOral) 2 % shampoo Use to wash the scalp 3 times weekly allowing to sit 3 minutes before rinsing. May use regular shampoo and condition after. 120 mL 3 levETIRAcetam (Keppra) 500 MG tablet Take 1 tablet (500 mg) by mouth 2 times daily. 60 tablet 0 levothyroxine (Synthroid, Levoxyl) 25 MCG tablet lisinopril 20 MG tablet loratadine (Claritin) 10 MG tablet Take 10 mg by mouth. LORazepam (Ativan) 1 MG tablet Take 2 tabs po QAM and 1 tab po QPM 90 tablet 2 magnesium hydroxide (Milk of Magnesia) 400 MG/5ML suspension Take by mouth Daily as needed for constipation. magnesium oxide (Mag-Ox) 400 MG tablet Take 400 mg by mouth in the morning. meclizine (Antivert) 25 MG tablet Take 25 mg by mouth 3 times daily as needed. melatonin 10 MG tablet Take by mouth. Menthol, Topical Analgesic, (Icy Hot) 5 % patch Apply topically. metoprolol tartrate (Lopressor) 25 MG tablet 2 times daily. potassium chloride ER (Micro-K) 10 MEQ ER capsule primidone (Mysoline) 50 MG tablet Take 4 tablets (200 mg) by mouth 2 times daily. 240 tablet 11 senna-docusate (Lani-Colace) 8.6-50 MG tablet Take 2 tablets by mouth Nightly as needed. sertraline (Zoloft) 100 MG tablet Take 100 mg by mouth in the morning and 100 mg in the evening. Sodium Phosphates (FLEET ENEMA RE) Insert into the rectum as needed. triamcinolone (Kenalog) 0.1 % ointment Apply to affected areas behind ears BID x 2 weeks Stop usingwhen clear. Repeat as needed for flares. 80 g 1 albuterol 108 (90 Base) MCG/ACT inhaler (Patient not taking: Reported on 12/08/2024) benzonatate (Tessalon) 200 MG capsule Take by mouth. (Patient not taking: Reported on 12/08/2024) clotrimazole-betamethasone (Lotrisone) cream (Patient not taking: Reported on 12/08/2024) Diclofenac Sodium (Voltaren) 1 % gel Apply topically every 12 hours. (Patient not taking: Reported on 12/08/2024) lidocaine (Lidoderm) 5 % patch Apply 1 patch topically Daily as needed for mild pain (1-3). Remove & discard patch within 12 hours or as directed by MD. (Patient not taking: Reported on 12/08/2024) loperamide (Imodium A-D) 2 MG tablet Take by mouth as needed for diarrhea. (Patient not taking: Reported on 12/08/2024) No current facility-administered medications for this visit. Past Medical History: Diagnosis Date Anxiety Chronic kidney disease Epilepsy (HCC) Essential hypertension Gastro-esophageal reflux disease without esophagitis Hypokalemia Hypothyroidism Obesity Personal history of urinary (tract) infections Psoriasis Repeated falls Thrombocytopenia (HCC) Social History Tobacco Use Smoking status: Never Smokeless tobacco: Never Substance Use Topics Alcohol use: Never Past Surgical History: Procedure Laterality Date BREAST REDUCTION Family History Problem Relation Name Age of Onset Heart disease Mother Parkinson's Disease Mother Dementia Mother Thyroid disease Father Asthma Sister Seizures Sister Asthma Sister Asthma Brother No Known Problems Maternal Grandmother No Known Problems Maternal Grandfather No Known Problems Paternal Grandmother No Known Problems Paternal Grandfather No Known Problems Daughter Wt 157 lb (71.2 kg) BMI 36.49 kg/m Physical Exam NEUROLOGIC: General Appearance: Well nourished, well developed, and in no apparent distress. Mental Status Exam: The patient is somnolent but arousable. They have normal memory, fund of knowledge, attention/concentration and language. Spells 'HOUSE' forward but not backward without errors. Verbal memory is normal. Language is fluent with intact comprehension and repetition. Cranial Nerves: III, IV, : Pupils: equal, round, and reactive to light, extra ocular movements intact, no nystagmus V: Facial sensation: intact to light touch bilaterally VII: Facial strength: symmetric on smile and blink VIII: Hearing: intact to voice/conversation IX: No dysarthria XI: Shoulder shrug: symmetric against gravity Motor: Normal bulk and tone. No atrophy or fasciculations observed. No tremors observed. Drift Arm abduction Elbow flexion Elbow extension Wrist flexion Wrist extension Finger extension Hand field inspector Finger abduction RUE Absent 5 5 5 5 5 5 LUE Absent 5 5 5 5 5 5 Drift Hip flexion Knee extension Knee flexion Foot dorsiflexion Toe dorsiflexion Plantar flexion RLE 5 5 5 5 5 LLE 5 5 5 5 5 Fine Motor: no difficulty with finger-tapping Sensory: Bilaterally intact to light touch. Double simultaneous stimulation without extinction. Romberg absent. Coordination: [id number] without dysmetria bilaterally. Reflexes: Deferred Gait: on cart Data Reviewed and Summarized Labs: Component Ref Range & Units 6 mo ago Sodium 135 - 145 mmol/L 139 Potassium 3.5 - 5.1 mmol/L 4.4 Chloride 98 - 108 mmol/L 108 Bicarbonate 21 - 32 mmol/L 24 Anion Gap 10 - 20 mmol/L 11 Glucose 65 - 99 mg/dL 81 BUN 8 - 25 mg/dL 20 Creatinine 0.40 - 1.10 mg/dL 1.34 High eGFR >=60 mL/min/1.73 m2 48 Low Comment: Estimated GFR was calculated using the 2020 CKD-EPI creatinine equation. BUN/Creatinine Ratio 10.0 - 20.0 14.9 Total Protein 6.0 - 8.0 g/dL 5.5 Low Albumin 3.2 - 5.2 g/dL 3.6 Calcium 8.4 - 10.2 mg/dL 8.5 Alkaline Phosphatase 40 - 150 U/L 72 AST 0-35 U/L 22 ALT 0-35 U/L 11 Total Bilirubin 0.0 - 1.3 mg/dL 0.2 Component Ref Range & Units 6 mo ago WBC 4.50 - 11.00 K/mcL 4.08 Low RBC 4.00 - 5.20 M/mcL 4.17 Hemoglobin 12.0 - 16.0 g/dL 12.8 Hematocrit 36.0 - 46.0 % 38.9 MCV 80.0 - 100.0 fL 93.3 MCH 26.0 - 34.0 pg 30.7 MCHC 31.0 - 37.0 g/dL 32.9 Platelets 150 - 400 K/mcL 74 Low RDW - CV 11.6 - 14.8 % 13 MPV 9.4 - 12.4 fL 10.1 Nucleated RBC % 0 Nucleated RBC Abs 0.00 - 0.00 K/mcL 0 Imaging/Testing: Assessment and Plan Epilepsy Classification: epilepsy NOS Etiology: structural Mood: euthymic Comorbidities: mood disorder The patient is a 49 right handed y.o. who returns for mood disorder, borderline personality disorder, psoriasis, and epilepsy since Jun 10, 1994 while at the [facility] when she experienced a convulsion. Previous provider ([facility]) followed her for kidney problems since age 25 now with improved renal function. She reports her last EEG was several years ago at [facility]. Her fall frequency has worsened recently. She is in a motorized wheel chair today. She reports losing her balance, stating she uses a gait belt and walker. Her last seizure occurred in Sep 2024. She describes it as a brief left hand flexion greater than right in a dystonic posture and then her left arm shakes uncontrollably with inability to talk after stating, I think Im going into a seizure. I am concerned Reema is experiencing nocturnal seizures on ASM polytherapy. I am recommending shebe admitted for diagnostic vEEG monitoring with an attempt to transition from Depakote and primidone (+/- Keppra) to another ASM regimen ( 3. Fycompa vs 2. topiramate vs 1. zonisamide). Will not change ASM her ASM regimen prior to admission. Will not change her ASM at this time. 1. Focal epilepsy with impairment of consciousness, intractable (HCC) - EEG SNF MONITORING 2 - 3 DAY EVAL Please do not call patient's father when scheduling admission, but rather Pam at [facility] [phone] Follow up in about 2 months (around 02/05/2025). Education Sohail Hernandez MD PhD Epilepsy Clinic Outpatient Progress Note & Billing by Time (2020 NA Guidelines): Time: (All time spent by provider-only, including documentation, for pre-/yuow-yw-hkxz/post- visit on the day of the visit ending at midnight on same day of visit). Encounter Code Level Time Spent (min) New Patient [id number] 15-29 [id number] 30-44 [id number] 45-59 [id number] 60-74 Established Patient [id number] 10-19 07628 20-29 96864 30-39 57845 40-54 Preparing for visit (review testing/procedures/notes) (min) Obtaining history (minutes) 15 Counseling, educating patient/family (minutes) 15 Ordering testing (minutes) Communicating with other providers (minutes) Charting (minutes) 15 Independently interpreting/documenting results (minutes) Communicating test results to patient/family (minutes) Total Time Today (min) = 45 documented in this [facility]01-13-2025 Telephone encounter Note* Telephone Encounter - Ellen Tompkins - 10/30/2024 2:42 PM EST We have been unable to reach your patient to schedule their testing. Test Name: EEG Residential Monitoring 2-3 Day Eval 1st Attempt: 10/26 Called patient, no answer, mailbox full unable to leave message. 2nd Attempt: 10/27 Called patient, no answer, mailbox full, unable to leave message 3rd Attempt: 10/30 Called patient, no answer, left voicemail [id number] Miscellaneous Notes* Telephone Encounter - Ellen Tompkins - 10/30/2024 2:42 PM EST We have been unable to reach your patient to schedule their testing. Test Name: EEG Residential Monitoring 2-3 Day Eval 1st Attempt: 10/26 Called patient, no answer, mailbox full unable to leave message. 2nd Attempt: 10/27 Called patient, no answer, mailbox full, unable to leave message 3rd Attempt: 10/30 Called patient, no answer, left voicemail documented in this encounterSC[facility] [id number] History of Present illness Narrative* Sohail Hernandez MD PhD - 10/26/2024 11:30 AM EST Images from the original note were not included. Department of Neurological Sciences Section of Epilepsy [facility] [address] [facility] [address] Dept: [phone] Dept Loc: [phone] . Visit type: follow-up Reason for Visit: Follow-up and Seizures (No new seizures to report) Objective HPI The patient is a 49 y.o. who lives at [facility] with a H significant for mood disorder, borderline personality disorder, psoriasis, and epilepsy since Jun 10, 1994 while at the [facility] when she experienced a convulsion. Previous provider ([facility]) followed her for kidney problemssince age 25 now with improved renal function. She reports her last EEG was several years ago. Shehas been in a wheelchair for 6 years this month. Her fall frequency has worsened recently. She is in a motorized wheel chair today. She reports losing her balance, stating she uses a gait belt and walker. Her last seizure occurred in Sep 2024 (?). She describes it as a brief left hand flexion greater than right in a dystonic posture and then her left arm shakes uncontrollably with inability to talk after stating, I think Im going into a seizure. She reports that when she went to the hospital she had a generalized convulsive event. - Tongue biting: none - Bladder or bowel incontinence: none - History of status epilepticus: none - Triggers: anxiety, stress - Last seizure: none - Longest seizure-free interval: none Family Composition: NAME RELATIONSHIP GENDER LIVING IN PRIMARY HOME living at facility Mental Status Exam Appearance: Well dressed, well groomed Behavior: Behaves appropriately during the encounter Social relatedness: Euthymic Speech/Language:The patient demonstrates appropriate tone, prosody, monika, phonetics, and syntax Mood: euthymic Affect: Full and appropriate to topic Orientation: Person, Place, Time and Situation Associations: Intact and linear Hallucinations: None Delusions: None Suicidal Ideation: No suicidal ideation, intent or plan. Homicidal Ideation: No homicidal ideation, intent or plan. Insight: Appropriate Judgment: Appropriate ER VISITS for Seizure: Review of Systems Allergies Allergen Reactions Gabapentin Nausea And Vomiting and Unknown Hydrocodone-Acetaminophen Other and Unknown Vomiting Morphine Other, Unknown and Nausea And Vomiting Vomiting Ondansetron Other and Nausea And Vomiting Vomiting Other Phenytoin Unknown Promethazine Other, Unknown and Nausea And Vomiting Sick Acetaminophen Rash Other reaction(s): Rash Azithromycin Rash, Unknown and Nausea And Vomiting Codeine Other, Rash, Unknown and Nausea And Vomiting Vomiting Erythromycin Rash and Unknown Erythromycin Base Rash and Unknown Hydrocodone Rash and Unknown Hydromorphone Rash and Unknown Penicillins Rash and Unknown Tramadol Rash and Unknown Current Outpatient Medications Medication Sig Dispense Refill acetaminophen (Tylenol) 500 MG tablet Take by mouth. allopurinol (Zyloprim) 300 MG tablet Take 300 mg by mouth in the morning. amLODIPine (Norvasc) 10 MG tablet Take 10 mg by mouth in the morning. atorvastatin (Lipitor) 20 MG tablet LORazepam (Ativan) 1 MG tablet Take 2 tabs po QAM and 1 tab po QPM 90 tablet 2 Menthol, Topical Analgesic, (Icy Hot) 5 % patch Apply topically. albuterol 108 (90 Base) MCG/ACT inhaler (Patient not taking: Reported on 10/26/2024) benzonatate (Tessalon) 200 MG capsule Take by mouth. bisacodyl (Dulcolax) 10 MG suppository Insert into the rectum Daily as needed for constipation. busPIRone (Buspar) 10 MG tablet Calcium + Vitamin D3 600-10 MG-MCG tablet clobetasol (Temovate) 0.05 % external solution Apply to affected areas on scalp BID x 6 weeks Stop using when clear. Repeat as needed for flares. Do not use on face, armpits, groin. 50 mL 3 clotrimazole-betamethasone (Lotrisone) cream Cyanocobalamin ER 1000 MCG tablet controlled-release Take 1,000 mcg by mouth in the morning. Diclofenac Sodium (Voltaren) 1 % gel Apply topically every 12 hours. divalproex (Depakote ER) 250 MG 24 hr tablet Take 1 tab po QAM and 2 tabs po QPM 90 tablet 11 famotidine (Pepcid) 20 MG tablet flurbiprofen (Ansaid) 100 MG tablet Take by mouth every 8 hours as needed. guaiFENesin (Humibid 3) 400 MG tablet Take 400 mg by mouth every 6 hours as needed. ketoconazole (NIZOral) 2 % shampoo Use to wash the scalp 3 times weekly allowing to sit 3 minutes before rinsing. May use regular shampoo and condition after. 120 mL 3 levETIRAcetam (Keppra) 500 MG tablet Take 1 tablet (500 mg) by mouth 2 times daily. 60 tablet 0 levothyroxine (Synthroid, Levoxyl) 25 MCG tablet lidocaine (Lidoderm) 5 % patch Apply 1 patch topically Daily as needed for mild pain (1-3). Remove & discard patch within 12 hours or as directed by MD. (Patient not taking: Reported on 10/26/2024) lisinopril 20 MG tablet loperamide (Imodium A-D) 2 MG tablet Take by mouth as needed for diarrhea. loratadine (Claritin) 10 MG tablet Take 10 mg by mouth. magnesium hydroxide (Milk of Magnesia) 400 MG/5ML suspension Take by mouth Daily as needed for constipation. magnesium oxide (Mag-Ox) 400 MG tablet Take 400 mg by mouth in the morning. meclizine (Antivert) 25 MG tablet Take 25 mg by mouth 3 times daily as needed. metoprolol tartrate (Lopressor) 25 MG tablet 2 times daily. potassium chloride ER (Micro-K) 10 MEQ ER capsule primidone (Mysoline) 50 MG tablet Take 4 tablets (200 mg) by mouth 2 times daily. 240 tablet 11 senna-docusate (Lani-Colace) 8.6-50 MG tablet Take 2 tablets by mouth Nightly as needed. sertraline (Zoloft) 100 MG tablet Take 100 mg by mouth in the morning and 100 mg in the evening. Sodium Phosphates (FLEET ENEMA RE) Insert into the rectum as needed. triamcinolone (Kenalog) 0.1 % ointment Apply to affected areas behind ears BID x 2 weeks Stop usingwhen clear. Repeat as needed for flares. 80 g 1 No current facility-administered medications for this visit. Past Medical History: Diagnosis Date Anxiety Chronic kidney disease Epilepsy (HCC) Essential hypertension Gastro-esophageal reflux disease without esophagitis Hypokalemia Hypothyroidism Obesity Personal history of urinary (tract) infections Psoriasis Repeated falls Thrombocytopenia (HCC) Social History Tobacco Use Smoking status: Never Smokeless tobacco: Never Substance Use Topics Alcohol use: Never Past Surgical History: Procedure Laterality Date BREAST REDUCTION Family History Problem Relation Name Age of Onset Heart disease Mother Parkinson's Disease Mother Dementia Mother Thyroid disease Father Asthma Sister Seizures Sister Asthma Sister Asthma Brother No Known Problems Maternal Grandmother No Known Problems Maternal Grandfather No Known Problems Paternal Grandmother No Known Problems Paternal Grandfather No Known Problems Daughter BP (!) 140/84 Physical Exam NEUROLOGIC: General Appearance: Well nourished, well developed, and in no apparent distress. Mental Status Exam: The patient is awake, alert and oriented to person, place and time. They have normal memory, fund of knowledge, attention/concentration and language. Spells 'HOUSE' forward and backward without errors. Verbal memory is normal. Language is fluent with intact comprehension and repetition. Cranial Nerves: III, IV, : Pupils: equal, round, and reactive to light, extra ocular movements intact, no nystagmus V: Facial sensation: intact to light touch bilaterally VII: Facial strength: symmetric on smile and blink VIII: Hearing: intact to voice/conversation IX: No dysarthria XI: Shoulder shrug: symmetric against gravity Motor: Normal bulk and tone. No atrophy or fasciculations observed. No tremors observed. Drift Arm abduction Elbow flexion Elbow extension Wrist flexion Wrist extension Finger extension Hand field inspector Finger abduction RUE Absent 5 5 5 5 5 5 LUE Absent 5 5 5 5 5 5 Drift Hip flexion Knee extension Knee flexion Foot dorsiflexion Toe dorsiflexion Plantar flexion RLE 5 5 5 5 5 LLE 5 5 5 5 5 Fine Motor: no difficulty with finger-tapping Sensory: Bilaterally intact to light touch. Double simultaneous stimulation without extinction. Romberg absent. Coordination: [id number] without dysmetria bilaterally. Reflexes: Deferred Gait: on a chart Data Reviewed and Summarized Labs: reviewed Imaging/Testing: Assessment and Plan Epilepsy Classification: epilepsy NOS Etiology: structural Mood: euthymic Comorbidities: mood disorder The patient is a 49 right handed y.o. who returns for mood disorder, borderline personality disorder, psoriasis, and epilepsy since Jun 10, 1994 while at the [facility] when she experienced a convulsion. Previous provider ([facility]) followed her for kidney problems since age 25 now with improved renal function. She reports her last EEG was several years ago at [facility]. Her fall frequency has worsened recently. She is in a motorized wheel chair today. She reports losing her balance, stating she uses a gait belt and walker. Her last seizure occurred in Aug/Sep 2024. She describes it as a brief left hand flexion greater than right in a dystonic posture and then her left arm shakes uncontrollably with inability to talk after stating, I think Im going into a seizure. I am concerned Reema is experiencing nocturnal seizures on ASM polytherapy. I am recommending shebe admitted for diagnostic vEEG monitoring with an attempt to transition from Depakote and primidone (+/- Keppra) to another ASM regimen ( 3. Fycompa vs 2. topiramate vs 1. zonisamide). Will not change ASM her ASM regimen prior to admission. 1. Focal epilepsy with impairment of consciousness, intractable (HCC) - EEG SNF MONITORING 2 - 3 DAY EVAL Will not change her ASM at this time. No follow-ups on file. Education Sohail Hernandez MD PhD Epilepsy Clinic Outpatient Progress Note & Billing by Time (2020 NA Guidelines): Time: (All time spent by provider-only, including documentation, for pre-/ccfb-xa-bypp/post- visit on the day of the visit ending at midnight on same day of visit). Encounter Code Level Time Spent (min) New Patient [id number] 15-29 [id number] 30-44 06487 45-59 [id number] 60-74 Established Patient [id number] 10-19 22030 20-29 91344 30-39 87857 40-54 Preparing for visit (review testing/procedures/notes) (min) Obtaining history (minutes) 15 Counseling, educating patient/family (minutes) 15 Ordering testing (minutes) Communicating with other providers (minutes) Charting (minutes) 15 Independently interpreting/documenting results (minutes) Communicating test results to patient/family (minutes) Total Time Today (min) = 45 documented in this [facility]11-13-2024 History of Present illness Narrative* Gayatri Bobby PA-C - 08/30/2024 3:00 PM EST DATE OF SERVICE: 08/30/2024 PATIENT NAME: Reema Shah : 1975 AGE: 48 y.o. CLINIC NUMBER: [id number] Visit type: Established patient Chief Complaint Patient presents with Seborrheic Dermatitis PRASANTH: 05/31/24 with Gayatri Bobby PA-C (JY) Subjective HISTORY OF PRESENT ILLNESS: This is a 48 y.o. female who presents for F/u- seborrheic dermatitis to the scalp and behind the left ear; last seen 05/31/24 with Gayatri Bobby PA-C. Worsened since last visit. Patient states she was unable to get her prescription due to changing facilities ketoconazole shampoo, triamcinolone ointment, and clobetasol solution. Denies current flares. Denies redness, flaking, scaling. Denies burning, pain. Admits itching, after sweating and after her showers. Denies current itching. History of pacemaker/ defibrillator? No History of HIV/ Hep C? No Allergies to Lidocaine, Epinephrine, Latex or Adhesive? No Review of Systems Orders Placed This Encounter Medications ketoconazole (NIZOral) 2 % shampoo Sig: Use to wash the scalp 3 times weekly allowing to sit 3 minutes before rinsing. May use regularshampoo and condition after. Dispense: 120 mL Refill: 3 clobetasol (Temovate) 0.05 % external solution Sig: Apply to affected areas on scalp BID x 6 weeks Stop using when clear. Repeat as needed for flares. Do not use on face, armpits, groin. Dispense: 50 mL Refill: 3 triamcinolone (Kenalog) 0.1 % ointment Sig: Apply to affected areas behind ears BID x 2 weeks Stop using when clear. Repeat as needed for flares. Dispense: 80 g Refill: 1 There were no vitals filed for this visit. PHYSICAL EXAM GENERAL APPEARANCE:?Alert & oriented x3, pleasant. Well developed, well nourished. PSYCH: appropriate mood and affect DERMATOLOGY: (all measurements are in cm, unless otherwise noted) 1. Seborrheic dermatitis Left Postauricular Sulcus, Right Postauricular Area, Scalp Diffuse scaling with underlying erythema of L postauricular ear; minimal scaling of frontal scalp with underlying erythema [x]Chronic []Acute []Stable [x]Flaring/Exacerbation Educated and reassured. Treatment options, risks, benefits, and expectations reviewed. Patient never started original scripts since she moved facilities. Scripts sent to new place today.Patient to call should she need this changed. Start: -ketoconazole shampoo: Use to wash the scalp 3 to 4 times weekly allowing to sit 3 minutes before rinsing. May use regular shampoo and condition after. -triamcinolone ointment: Apply to affected areas BID x 2 weeks Stop using when clear. Repeat as needed for flares. Do not use on face, armpits, groin. Risks associated with custodial topical steroid use reviewed in detail. Patient was advised that topical steroid is being used for short term relief and not as maintenance. Overuse of topical steroids can result in permanent skin thinning/atrophy, skin discoloration, unwanted hair growth, acne and/or stretch hurd/striae. -clobetasol solution: massage into affected areas of scalp BID x 6 weeks then prn flares Related Medications ketoconazole (NIZOral) 2 % shampoo Use to wash the scalp 3 times weekly allowing to sit 3 minutes before rinsing. May use regular shampoo and condition after. clobetasol (Temovate) 0.05 % external solution Apply to affected areas on scalp BID x 6 weeks Stop using when clear. Repeat as needed for flares. Do not use on face, armpits, groin. triamcinolone (Kenalog) 0.1 % ointment Apply to affected areas behind ears BID x 2 weeks Stop using when clear. Repeat as needed for flares. Follow up if symptoms worsen or fail to improve, for krysten derm follow up. Gayatri Bobby PA-C 08/30/24 3:36 PM documented in this [facility]10-01-2024 History of Present illness Narrative* Valentina Chopra MD - 07/18/2024 1:00 PM EDT [facility] [address] [facility] [address] [facility] [address] Dept: [phone] Dept Loc: [phone] Valentina Chopra MD CHIEF COMPLAINT: Chief Complaint Patient presents with Follow-up Seizures Tremors HISTORY OF PRESENT ILLNESS: The patient is a 48 y.o. who returns for seizures and tremors. She reports that she is living in a situation that is very distressful. She reports that she is in distress. She is concerned that she was going to be taken off of her Ativan, but she was re-assured that they are not going to change that. She fears that she will have seizures without the lorazepam. She reports that she has recently had the lorazepam at night only instead of twice daily as it had. She reports that she has been more shaky. She reports that she is more dizzy and has fallen. She reports that she was in [facility] in [place]. She reports that she ended up in there because of seizures. There are reports from there that they were concerned that she had renal failure. We discussed the admission Her falling has worsened recently. She is in a motorized wheel chair today, but reports that when she is up she has a gait belt and walker on now. Her last seizure was 10 days ago. Her left hand flexed in a dystonic posture and then her left arm shook uncontrollably. She reports that it was short. She reports that when she went to the hospital she had a generalized convulsive event. She had someability to call out to folks to tell them that she was about to have a seizure before those happened, but went out. Her hands flexed into a flexor posture. Past Medical History: has a past medical history of Anxiety, Chronic kidney disease, Epilepsy ([facility]), Essential hypertension, Gastro-esophageal reflux disease without esophagitis, Hypokalemia, Hypothyroidism, Obesity, Personal history of urinary (tract) infections, Psoriasis, Repeated falls, and Thrombocytopenia ([facility]). Past Surgical History: has a past surgical history that includes Breast reduction. Medications: Current Outpatient Medications: acetaminophen (Tylenol) 500 MG tablet, Take by mouth., Disp: , Rfl: albuterol 108 (90 Base) MCG/ACT inhaler, , Disp: , Rfl: allopurinol (Zyloprim) 300 MG tablet, Take 300 mg by mouth in the morning., Disp: , Rfl: amLODIPine (Norvasc) 10 MG tablet, Take 10 mg by mouth in the morning., Disp: , Rfl: atorvastatin (Lipitor) 20 MG tablet, , Disp: , Rfl: benzonatate (Tessalon) 200 MG capsule, Take by mouth., Disp: , Rfl: bisacodyl (Dulcolax) 10 MG suppository, Insert into the rectum Daily as needed for constipation., Disp: , Rfl: busPIRone (Buspar) 10 MG tablet, , Disp: , Rfl: Calcium + Vitamin D3 600-10 MG-MCG tablet, , Disp: , Rfl: clobetasol (Temovate) 0.05 % external solution, Apply to affected areas on scalp BID x 6 weeks Stopusing when clear. Repeat as needed for flares. Do not use on face, armpits, groin., Disp: 50 mL, Rfl: 3 clotrimazole-betamethasone (Lotrisone) cream, , Disp: , Rfl: Cyanocobalamin ER 1000 MCG tablet controlled-release, Take 1,000 mcg by mouth in the morning., Disp: , Rfl: Diclofenac Sodium (Voltaren) 1 % gel, Apply topically every 12 hours., Disp: , Rfl: famotidine (Pepcid) 20 MG tablet, , Disp: , Rfl: flurbiprofen (Ansaid) 100 MG tablet, Take by mouth every 8 hours as needed., Disp: , Rfl: guaiFENesin (Humibid 3) 400 MG tablet, Take 400 mg by mouth every 6 hours as needed., Disp: , Rfl: ketoconazole (NIZOral) 2 % shampoo, Use to wash the scalp 3 times weekly allowing to sit 3 minutes before rinsing. May use regular shampoo and condition after. Do not start before June 01, 2024., Disp: 120 mL, Rfl: 3 levothyroxine (Synthroid, Levoxyl) 25 MCG tablet, , Disp: , Rfl: lidocaine (Lidoderm) 5 % patch, Apply 1 patch topically Daily as needed for mild pain (1-3). Remove& discard patch within 12 hours or as directed by MD., Disp: , Rfl: lisinopril 20 MG tablet, , Disp: , Rfl: loperamide (Imodium A-D) 2 MG tablet, Take by mouth as needed for diarrhea., Disp: , Rfl: loratadine (Claritin) 10 MG tablet, Take 10 mg by mouth., Disp: , Rfl: magnesium hydroxide (Milk of Magnesia) 400 MG/5ML suspension, Take by mouth Daily as needed for constipation., Disp: , Rfl: magnesium oxide (Mag-Ox) 400 MG tablet, Take 400 mg by mouth in the morning., Disp: , Rfl: meclizine (Antivert) 25 MG tablet, Take 25 mg by mouth 3 times daily as needed., Disp: , Rfl: metoprolol tartrate (Lopressor) 25 MG tablet, 2 times daily., Disp: , Rfl: potassium chloride ER (Micro-K) 10 MEQ ER capsule, , Disp: , Rfl: primidone (Mysoline) 50 MG tablet, Take 4 tablets (200 mg) by mouth 2 times daily., Disp: 240 tablet, Rfl: 11 senna-docusate (Lani-Colace) 8.6-50 MG tablet, Take 2 tablets by mouth Nightly as needed., Disp: , Rfl: sertraline (Zoloft) 100 MG tablet, Take 100 mg by mouth in the morning and 100 mg in the evening., Disp: , Rfl: Sodium Phosphates (FLEET ENEMA RE), Insert into the rectum as needed., Disp: , Rfl: triamcinolone (Kenalog) 0.1 % ointment, Apply to affected areas behind ears BID x 2 weeks Stop using when clear. Repeat as needed for flares., Disp: 80 g, Rfl: 1 divalproex (Depakote ER) 250 MG 24 hr tablet, Take 1 tab po QAM and 2 tabs po QPM, Disp: 90 tablet,Rfl: 11 levETIRAcetam (Keppra) 500 MG tablet, Take 1 tablet (500 mg) by mouth 2 times daily., Disp: 60 tablet, Rfl: 0 LORazepam (Ativan) 1 MG tablet, Take 2 tabs po QAM and 1 tab po QPM, Disp: 90 tablet, Rfl: 2 Allergies: Gabapentin, Hydrocodone-acetaminophen, Morphine, Ondansetron, Other, Phenytoin, Promethazine, Acetaminophen, Azithromycin, Codeine, Erythromycin, Erythromycin base, Hydrocodone, Hydromorphone, Penicillins, and Tramadol Social History: Social History Socioeconomic History Marital status: Spouse name: Not on file Number of children: Not on file Years of education: Not on file Highest education level: Not on file Occupational History Not on file Tobacco Use Smoking status: Never Smokeless tobacco: Never Substance and Sexual Activity Alcohol use: Never Drug use: Never Sexual activity: Not on file Other Topics Concern Not on file Social History Narrative Not on file Social Determinants of Health Financial Resource Strain: Low Risk (06/05/2024) Received from [facility] Overall Financial Resource Strain (CARDIA) Difficulty of Paying Living Expenses: Not very hard Food Insecurity: No Food Insecurity (06/05/2024) Received from [facility] Hunger Vital Sign Worried About Running Out of Food in the Last Year: Never true Ran Out of Food in the Last Year: Never true Transportation Needs: No Transportation Needs (06/05/2024) Received from [facility] PRAPARE - Transportation Lack of Transportation (Medical): No Lack of Transportation (Non-Medical): No Physical Activity: Not on file Stress: Not on file Social Connections: Not on file Intimate Partner Violence: Not At Risk (06/05/2024) Received from [facility] Humiliation, Afraid, Rape, and Kick questionnaire Fear of Current or Ex-Partner: No Emotionally Abused: No Physically Abused: No Sexually Abused: No Housing Stability: Low Risk (06/05/2024) Received from [facility] Stability Vital Sign Unable to Pay for Housing in the Last Year: No Number of Times Moved in the Last Year: 1 Homeless in the Last Year: No Family History: Family History Problem Relation Name Age of Onset Heart disease Mother Parkinson's Disease Mother Dementia Mother Thyroid disease Father Asthma Sister Seizures Sister Asthma Sister Asthma Brother No Known Problems Maternal Grandmother No Known Problems Maternal Grandfather No Known Problems Paternal Grandmother No Known Problems Paternal Grandfather No Known Problems Daughter REVIEW OF SYSTEMS: Review of Systems Constitutional: Negative for appetite change, chills, diaphoresis, fever and unexpected weight change. HENT: Negative for dental problem and mouth sores. Eyes: Negative for discharge and itching. Respiratory: Negative for chest tightness. Cardiovascular: Negative for chest pain and leg swelling. Gastrointestinal: Negative for rectal pain and vomiting. Endocrine: Negative for polydipsia, polyphagia and polyuria. Genitourinary: Negative for decreased urine volume, flank pain and genital sores. Musculoskeletal: Negative for arthralgias. Skin: Negative for color change. Allergic/Immunologic: Negative for food allergies and immunocompromised state. Neurological: Positive for dizziness, tremors and seizures. Hematological: Negative for adenopathy. Does not bruise/bleed easily. Psychiatric/Behavioral: Negative for agitation, behavioral problems, decreased concentration, sleepdisturbance and suicidal ideas. PHYSICAL EXAM: Vitals: BP (!) 164/104 (BP Location: Right arm, Patient Position: Sitting, BP Cuff Size: Adult) Pulse 69 Ht 4' 7 (1.397 m) Wt 157 lb (71.2 kg) BMI 36.49 kg/m General Appearance: Patient is in no apparent distress. Head is normocephalic, atraumatic Cardiovascular: Regular rate and rhythm. No heart murmurs. No carotid bruit Neurologic: Mentation: Alert and oriented x 3 to person, place and time. Speech and Language: Speech is mildly dyscoordinated and language grossly normal Concentration and Attention: Concentration normal Memory: Memory grossly normal. Fund of Knowledge: Fund of knowledge grossly normal Cranial Nerves: II, III, IV, V, , VII, VIII, IX, X, XI, XII tested and were intact including fundoscopic exam (optic discs) and visual field to confrontation. Motor: Strength:Strength 5 out of 5 with normal tone Alternating Movements: Normal Cogwheel Rigidity: None Tone: Tone is normal Tremor / Involuntary Movements: Bilateral high amp low frequency tremor. She has primarily intention tremor. She has occl myoclonic jerking. Deep Tendon Reflexes: 1 out of 4 symmetrical in all four limbs. Coordination: Mild dysmetria but otherwise normal coordination upper and lower extremities DATA CT HEAD OR BRAIN W/O CONTRAST CLINICAL STATEMENT: pain/headache COMPARISON: 12/27/2009 FINDINGS: No mass, hemorrhage, or acute infarct is identified. No extra-axial fluid collection or midline shift is seen. The ventricles and sulci are normal in appearance. The hill-white matter differentiation is maintained. A 1.8 cm mucous retention cyst or polyp is again identified with in the LEFT maxillary sinus. The visualized cranium is intact. IMPRESSION: No acute intracranial process. A preliminary report was sent at the time of the exam. Component 5 yr ago Check Processing Clerk EXAMINATION: NM I-123 BRAIN SPECT DOPAMINE TRANSPORTER [...] and caudate nuclei, bilaterally. IMPRESSION: Normal study. Interpreted By: Susan Bhakta MD Preliminary Report By: Susan Bhakta MD Electronically Signed By: Susan Bhakta MD Dictated Date: 04/12/2014 8:46:00 AM Prelim Date: 04/12/2014 8:52:13 AM Sign Date: 04/12/2014 8:52:13 AM Aleksey Bhardwaj MD - 03/16/2019 4:18 PM EDT Aleksey Bhardwaj MD 03/16/2019 4:19 PM [facility] EEG Report Reason for EEG: Seizures. [...] epileptiform discharges or ictal activity was seen. CT MAXILLOFACIAL WITHOUT CONTRAST; CT HEAD OR BRAIN WITHOUT CONTRAST HISTORY: ORDERING SYSTEM PROVIDED HISTORY: nose injury, TECHNOLOGIST PROVIDED HISTORY: Injury/Trauma Reason for exam: pt had a seizure, FELL OFF TOILET.STRUCK TOP OF HEAD, head and neck pain, tremors Encounter Type: Initial Mechanism of injury: fall ORDERING SYSTEM PROVIDED DIAGNOSIS CODES: ; ORDERING SYSTEM PROVIDED HISTORY: head trauma, seizure, TECHNOLOGIST PROVIDED HISTORY: Injury/Trauma Reason for exam: pt had a seizure, FELL OFF TOILET.STRUCK TOP OF HEAD, head and neck pain, tremors Encounter Type: Initial Mechanism of injury: fall ORDERING SYSTEM PROVIDED DIAGNOSIS CODES: COMPARISON: None TECHNIQUE: CT examination of the head without IV contrast. Dose reduction techniques were achieved by using automated exposure control and/or adjustment of mAand/or kV according to patient size and/or use of iterative reconstruction technique. FINDINGS: BRAIN: No edema, hemorrhage, mass, acute infarction, or inappropriate atrophy. CSF SPACES: No hydrocephalus, subarachnoid hemorrhage, or mass. Appropriate for age. SKULL: No fracture, mass, or other significant visible lesion. SINUSES: Mucocele versus retention cyst within the base of the left maxillary sinus suggestive of chronic sinusitis. ORBITS: No appreciable abnormality on the limited views. Facial bones:: Nondisplaced fractures of the right and left nasal bones. IMPRESSION: 1. Normal CT appearance of the brain. 2. Nondisplaced fractures of the right and left nasal bones. 3. Left maxillary chronic sinusitis. Workstation ID: [id number] Exam End: 12/01/20 12:39 Specimen Collected: 12/01/20 13:00 CT CERVICAL SPINE WITHOUT CONTRAST HISTORY: ORDERING SYSTEM PROVIDED HISTORY: Neck pain, recent trauma, TECHNOLOGIST PROVIDED HISTORY: Injury/Trauma Reason for exam: pt had a seizure, FELL OFF TOILET.STRUCK TOP OF HEAD, head and neck pain, tremors Encounter Type: Initial Mechanism of injury: ORDERING SYSTEM PROVIDED DIAGNOSIS CODES: COMPARISON: None TECHNIQUE: Multiplanar CT imaging of the cervical spine without IV contrast. Dose reduction techniques were achieved by using automated exposure control and/or adjustment of mAand/or kV according to patient size and/or use of iterative reconstruction technique. FINDINGS: VERTEBRAL BODIES: Mild straightening of the normal lordotic curvature. No fracture, pars defect, orosseous lesion. FACET JOINTS: No disruption or abnormal widening. CERVICAL DISCS: Moderate narrowing C3-4, C4-5, C5-6 with small posterior endplate osteophytes. CENTRAL CANAL: No evidence of hemorrhage. PARASPINAL AREA: No visible mass. IMPRESSION: 1. No acute bone abnormality. 2. Multilevel mild-moderate degenerative disc disease. Workstation ID: [id number] Exam End: 12/01/20 12:42 Specimen Collected: 12/01/20 13:09 CT HEAD WO CONTRAST; 07/10/2021 7:01 am INDICATION: head injury. COMPARISON: CT Brain, 15 May 2021 ACCESSION NUMBER(S): [id number] ORDERING CLINICIAN: LARRY EUGENE TECHNIQUE: CT of the brain from the skull vertex to the skull base, without intravenous contrast FINDINGS: ACUTE INTRA-AXIAL HEMORRHAGE: Negative ACUTE EXTRA-AXIAL/SUBDURAL HEMORRHAGE: Negative ACUTE INTRACRANIAL MASS EFFECT: Negative CT EVIDENCE OF ACUTE / SUBACUTE TERRITORIAL ISCHEMIA: Negative VENTRICLES: Normal caliber and configuration OTHER BRAIN FINDINGS: No additional findings to note INCLUDED PARANASAL SINUSES: Mucous retention cyst or polyp in left maxillary; others clear INCLUDED MASTOID AIR CELLS: All clear SKULL: No depressed skull fracture. Marked hyperostosis frontalis EXTRACRANIAL SOFT TISSUES: Swelling/hematoma in the scalp of the forehead at and to the left of the midline above the orbital ridge IMPRESSION: NO ACUTE INTRACRANIAL PROCESS. SKULL INTACT. Exam End: 07/10/21 07:01 Sree Cordoba MD - 08/16/2021 EXAMINATION: CT HEAD OR BRAIN WITHOUT CONTRAST DATE: 08/16/2021 HISTORY: Head trauma, abnormal mental status (Age 19-64y); fall w/ [facility], persistent n/v [facility] PCP 30 min appt Injury/Trauma or Illness?:Injury/Trauma How long have you had these symptoms (acute/chronic)?:Acute Reason for exam?:trauma Type of Exam?:Initial COMPARISON: CT brain from [place] of 12/01/2020. TECHNIQUE: Noncontrast CT of the brain was performed. Dose reduction techniques were achieved by using automated exposure control and/or adjustment of mA and/or kV according to patient size and/or use of iterative reconstruction technique. FINDINGS: Motion artifact is shown. Overall ventricles, basal cisterns and sulci are normal in size and configuration. No intracranial hemorrhage noted. No frankly destructive bony lesion. IMPRESSION: Accounting for motion-related artifact, no acute brain parenchymal abnormality, hemorrhage or skullfracture is seen. No suspicious change from 12/01/2020 CT brain at [place]. Nini Garcia MD - 12/22/2022 Patient Name: REEMA SHAH STUDY: CT HEAD WO CONTRAST; 08/24/2022 7:43 am INDICATION: fall, history of thrombocytopenia, abrasion L parietal scalp . COMPARISON: 05/09/2022 ACCESSION NUMBER(S): [id number] ORDERING CLINICIAN: ANDRES HUSSEIN TECHNIQUE: Unenhanced CT images of the head were obtained. FINDINGS: Mild motion artifact noted on the more superior images. The brain parenchyma, ventricular system and extra-axial spaces are within normal limits as visualized sizable. Hill-white differentiation is grossly intact. There is no sizable acute intracranial hemorrhage, mass effect or midline shift. No extraaxial fluid collection. Soft tissue swelling in the left parietal scalp. No acute displaced calvarial fracture. Changes of hyperostosis frontalis interna noted. Mucosal thickening in the posterior left maxillary sinus. Remaining visualized paranasal sinuses are clear. IMPRESSION: No acute intracranial hemorrhage or mass-effect on slightly limited, motion compromised exam. Soft tissue swelling in the left parietal scalp noted. Mild left maxillary sinus mucosal thickening. Exam End: 08/24/22 07:43 Jeb Carranza MD - 01/21/2023 Interpreted By: JEB CARRANZA MD Patient Name: REEMA SHAH STUDY: CT HEAD WO CONTRAST; 01/21/2023 5:05 pm INDICATION: head injury . COMPARISON: 11/26/2022 ACCESSION NUMBER(S): [id number] ORDERING CLINICIAN: LARRY EUGENE TECHNIQUE: Noncontrast axial CT scan of head was performed. Multiplanar reconstructions FINDINGS: No acute intracranial hemorrhage, mass effect, midline shift, or herniation. No evidence of hydrocephalus. The ventricles and sulci are unremarkable for age. Ethmoid and sphenoid sinus mucosal thickening. Hypoplastic frontal sinuses. No acute osseous abnormality of the calvarium. No destructive bone lesion. Hyperostosis frontalis interna. IMPRESSION: No acute intracranial abnormality. Consider follow-up with MRI as warranted. Exam End: -- Specimen Collected: 01/21/23 17:05 Jeb Carranza MD - 01/21/2023 Interpreted By: JEB CARRANZA MD Patient Name: REEMA SHAH STUDY: CT C-SPINE WO CONTRAST; 01/21/2023 5:05 pm INDICATION: fall with head injury . COMPARISON: None. ACCESSION NUMBER(S): [id number] ORDERING CLINICIAN: LARRY EUGENE TECHNIQUE: Axial CT images of the cervical spine are obtained. Axial, coronal and sagittal reconstructions are provided for review. FINDINGS: No acute fracture or subluxation. No vertebral body or disc height loss. Scattered marginal osteophytes C3-C6. Facet arthropathy scattered throughout the cervical spine. No prevertebral hematoma. IMPRESSION: No evidence for an acute fracture or subluxation of the cervical spine. Exam End: -- Specimen Collected: 01/21/23 17:05 Dai Bone DO - 07/16/2023 Interpreted By: DAI BONE DO Patient Name: REEMA SHAH STUDY: CT HEAD WO CONTRAST; 07/16/2023 12:05 am INDICATION: stable . TINEO d/t htn this evening Presented DX Code: R51.9 Headache, unspecified COMPARISON: CT head 01/21/2023 ACCESSION NUMBER(S): [id number] ORDERING CLINICIAN: CAREN GILMAN TECHNIQUE: Noncontrast CT axial images were obtained through the brain. Coronal and sagittal reformats were performed. FINDINGS: The ventricles, sulci and basal cisterns are within normal limits. The mancilla-white matter differentiation is intact. No acute territorial infarct. There is no mass effect or midline shift. There is no extraaxial fluid collection. There is no intracranial hemorrhage. No depressed calvarial fracture. Redemonstration of hyperostosis frontalis interna and hypoplastic frontal sinuses. No air-fluid levels at the visualized paranasal sinuses. The mastoid air cells are clear. IMPRESSION: 1. No acute intracranial hemorrhage or acute territorial infarct. MACRO: None. Exam End: 07/16/23 00:05 Component Ref Range & Units 1 mo ago Levetiracetam 6.0 - 46.0 mcg/mL 68.5 High Component Ref Range & Units 1 mo ago Valproic Acid 50 - 100 mcg/mL 25 Low Component Ref Range & Units 1 mo ago Valproic Acid, Free 5 - 25 mcg/mL <3 Low Levetiracetam Level Order: [id number] Component Ref Range & Units 7 mo ago Levetiracetam 6.0 - 46.0 mcg/mL 23.8 Component Ref Range & Units 7 mo ago Valproic Acid 50 - 100 mcg/mL 41 Low ASSESSMENT AND PLAN: Diagnosis Plan 1. 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) divalproex (Depakote ER) 250 MG 24 hr tablet levETIRAcetam (Keppra) 500 MG tablet LORazepam (Ativan) 1 MG tablet 2. Tremor LORazepam (Ativan) 1 MG tablet 3. Frequent falls Dr. Hernandez, the head of our epilepsy center, is now seeing her and will be performing an EEG monitortest. I appreciate his help. Years ago, when she was having frequent seizures and her tremors were out of control and the insurance was limiting my options for meds, I placed her on benzos. 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 Hernandez has begun. Continue the Keppra and Depakote for now. I hape we can get her off of divalproex in the future as well. In the past, beta blockers and barbiturate meds did not help. I again in desperation turned to benzos and found that it helped the severe tremors and had the surprising benefit of reducing her falls.My recollection is that I tried clonazepam but for some reason had to go to lorazepam, but I do notrecall why. I think it was that she did not tolerate clonazepam, but I am not certain. Lorazepam 2 mg in AM and 1 mg in PM. This is closely tied to her tremors. The exact cause of her movement disorder is unclear. Years agoin private practice I put her on benzos because of limited other options and the patient doing poorly. [facility]full wh will be able to get those off in the near future. I spent 40 minutes caring for this patient today, reviewing labs and records, seeing the patient, documenting in the record and arranging for studies. documented in this [facility]09-24-2024 Telephone encounter Note* Telephone Encounter - Latesha Sparks - 07/11/2024 11:11 AM EDT We have been unable to reach your patient to schedule their testing. Test Name: eeg custodial 1st Attempt: 07/07 2nd Attempt: 07/10 3rd attempt; 07/11 left message with tera from the nursing facility who states she will take and give to nursing staff. Vanda was notified this is for mainly documentation. [id number] Miscellaneous Notes* Telephone Encounter - Latesha Sparks - 07/11/2024 11:11 AM EDT We have been unable to reach your patient to schedule their testing. Test Name: eeg custodial 1st Attempt: 07/07 2nd Attempt: 07/10 3rd attempt; 07/11 left message with tera from the nursing facility who states she will take and give to nursing staff. Vanda was notified this is for mainly documentation. documented in this [place] [id number] History of Present illness Narrative* Sohail Hernandez MD PhD - 07/07/2024 11:30 AM EDT Images from the original note were not included. Department of Neurological Sciences Section of Epilepsy [facility] [address] [facility] [address] Dept: [phone] Dept Loc: [phone] . Visit type: follow-up Reason for Visit: New Patient (New Patient referred to us by Dr. Chopra for seizures. Last seizure was in March of 2024 and went to [facility] ED in [place].) Per Dr Chopra (who had been following Rosa Elena since 2007), it was medically necessary for her to increase the primidone to 200 mg BID and to reduce the Keppra to 500 mg BID. She is still on low dose Depakote as well. It is necessary for her to see Dr. Hernandez to see if there are other medicines or techniques to reduce her seizures. Objective HPI The patient is a 48 y.o. who lives at [facility] with a PMH significant for mood disorder, borderline personality disorder, psoriasis, and epilepsy since Jun 10, 1994 while at the [facility] when she experienced a convulsion. Previous provider ([facility]) followed her for kidney problemssince age 25 now with improved renal function. She reports her last EEG was several years ago. Shehas been in a wheelchair for 6 years this month. Her fall frequency has worsened recently. She is in a motorized wheel chair today. She reports losing her balance, stating she uses a gait belt and walker. Her last seizure occurred in March,. She describes it as a brief left hand flexion greater thanright in a dystonic posture and then her left arm shakes uncontrollably with inability to talk after stating, I think Im going into a seizure. She reports that when she went to the hospital she had a generalized convulsive event. - Tongue biting: none - Bladder or bowel incontinence: none - History of status epilepticus: none - Triggers: anxiety, stress - Last seizure: none - Longest seizure-free interval: none Mental Status Exam Appearance: Well dressed, well groomed Behavior: Behaves appropriately during the encounter Social relatedness: Euthymic Speech/Language:The patient demonstrates appropriate tone, prosody, monika, phonetics, and syntax Mood: euthymic Affect: Full and appropriate to topic Orientation: Person, Place, Time and Situation Associations: Intact and linear Hallucinations: None Delusions: None Suicidal Ideation: No suicidal ideation, intent or plan. Homicidal Ideation: No homicidal ideation, intent or plan. Insight: Appropriate Judgment: Appropriate ER VISITS for Seizure: Review of Systems Allergies Allergen Reactions Gabapentin Nausea And Vomiting and Unknown Hydrocodone-Acetaminophen Other and Unknown Vomiting Morphine Other, Unknown and Nausea And Vomiting Vomiting Ondansetron Other and Nausea And Vomiting Vomiting Other Phenytoin Unknown Promethazine Other, Unknown and Nausea And Vomiting Sick Acetaminophen Rash Other reaction(s): Rash Azithromycin Rash, Unknown and Nausea And Vomiting Codeine Other, Rash, Unknown and Nausea And Vomiting Vomiting Erythromycin Rash and Unknown Erythromycin Base Rash and Unknown Hydrocodone Rash and Unknown Hydromorphone Rash and Unknown Penicillins Rash and Unknown Tramadol Rash and Unknown Current Outpatient Medications Medication Sig Dispense Refill acetaminophen (Tylenol) 500 MG tablet Take by mouth. albuterol 108 (90 Base) MCG/ACT inhaler allopurinol (Zyloprim) 300 MG tablet Take 300 mg by mouth in the morning. amLODIPine (Norvasc) 10 MG tablet Take 10 mg by mouth in the morning. atorvastatin (Lipitor) 20 MG tablet benzonatate (Tessalon) 200 MG capsule Take by mouth. bisacodyl (Dulcolax) 10 MG suppository Insert into the rectum Daily as needed for constipation. busPIRone (Buspar) 10 MG tablet Calcium + Vitamin D3 600-10 MG-MCG tablet clobetasol (Temovate) 0.05 % external solution Apply to affected areas on scalp BID x 6 weeks Stop using when clear. Repeat as needed for flares. Do not use on face, armpits, groin. 50 mL 3 clotrimazole-betamethasone (Lotrisone) cream Cyanocobalamin ER 1000 MCG tablet controlled-release Take 1,000 mcg by mouth in the morning. Diclofenac Sodium (Voltaren) 1 % gel Apply topically every 12 hours. divalproex (Depakote ER) 250 MG 24 hr tablet divalproex (Depakote ER) 500 MG 24 hr tablet Take 500 mg by mouth. divalproex (Depakote ER) 500 MG 24 hr tablet Take 1 tablet (500 mg) by mouth 2 times daily. 30 tablet 2 famotidine (Pepcid) 20 MG tablet flurbiprofen (Ansaid) 100 MG tablet Take by mouth every 8 hours as needed. guaiFENesin (Humibid 3) 400 MG tablet Take 400 mg by mouth every 6 hours as needed. ketoconazole (NIZOral) 2 % shampoo Use to wash the scalp 3 times weekly allowing to sit 3 minutes before rinsing. May use regular shampoo and condition after. Do not start before June 01, 2024. 120mL 3 levothyroxine (Synthroid, Levoxyl) 25 MCG tablet lidocaine (Lidoderm) 5 % patch Apply 1 patch topically Daily as needed for mild pain (1-3). Remove & discard patch within 12 hours or as directed by MD. lisinopril 20 MG tablet loperamide (Imodium A-D) 2 MG tablet Take by mouth as needed for diarrhea. loratadine (Claritin) 10 MG tablet Take 10 mg by mouth. LORazepam (Ativan) 1 MG tablet Take 2 mg by mouth. magnesium hydroxide (Milk of Magnesia) 400 MG/5ML suspension Take by mouth Daily as needed for constipation. magnesium oxide (Mag-Ox) 400 MG tablet Take 400 mg by mouth in the morning. meclizine (Antivert) 25 MG tablet Take 25 mg by mouth 3 times daily as needed. metoprolol tartrate (Lopressor) 25 MG tablet 2 times daily. potassium chloride ER (Micro-K) 10 MEQ ER capsule senna-docusate (Lani-Colace) 8.6-50 MG tablet Take 2 tablets by mouth Nightly as needed. sertraline (Zoloft) 100 MG tablet Take 100 mg by mouth in the morning and 100 mg in the evening. Sodium Phosphates (FLEET ENEMA RE) Insert into the rectum as needed. triamcinolone (Kenalog) 0.1 % ointment Apply to affected areas behind ears BID x 2 weeks Stop usingwhen clear. Repeat as needed for flares. 80 g 1 levETIRAcetam (Keppra) 500 MG tablet Take 1 tablet (500 mg) by mouth 2 times daily. 60 tablet 11 primidone (Mysoline) 50 MG tablet Take 4 tablets (200 mg) by mouth 2 times daily. 240 tablet 11 No current facility-administered medications for this visit. Past Medical History: Diagnosis Date Anxiety Chronic kidney disease Epilepsy (HCC) Essential hypertension Gastro-esophageal reflux disease without esophagitis Hypokalemia Hypothyroidism Obesity Personal history of urinary (tract) infections Psoriasis Repeated falls Thrombocytopenia (HCC) Social History Tobacco Use Smoking status: Never Smokeless tobacco: Never Substance Use Topics Alcohol use: Never Past Surgical History: Procedure Laterality Date BREAST REDUCTION Family History Problem Relation Name Age of Onset Heart disease Mother Parkinson's Disease Mother Dementia Mother Thyroid disease Father Asthma Sister Seizures Sister Asthma Sister Asthma Brother No Known Problems Maternal Grandmother No Known Problems Maternal Grandfather No Known Problems Paternal Grandmother No Known Problems Paternal Grandfather No Known Problems Daughter BP 92/53 Pulse 78 Ht 4' 7 (1.397 m) Wt 157 lb (71.2 kg) BMI 36.49 kg/m Physical Exam NEUROLOGIC: General Appearance: Well nourished, well developed, and in no apparent distress. Mental Status Exam: The patient is awake, alert and oriented to person, place and time. They have normal memory, fund of knowledge, attention/concentration and language. Spells 'HOUSE' forward and backward without errors on three attempts even when cuing flipping the 'OU', finally correcting error on fourth attempt. Verbal memory is normal IMMEDIATE RECALL INTACT with 'APPLE, TABLE, SERGIO' after brief memory. Language is slowed fluent with intact comprehension and repetition. Cranial Nerves: II: VFF III, IV, : Pupils: equal, round, and reactive to light, extra ocular movements intact, no nystagmus V: Facial sensation: intact to light touch bilaterally VII: Facial strength: symmetric on smile and blink VIII: Hearing: intact to voice/conversation IX: No dysarthria XI: Shoulder shrug: symmetric against gravity Motor: Normal bulk and tone. No atrophy or fasciculations observed. Coarse BUE tremors observed. Drift Arm abduction Elbow flexion Elbow extension Wrist flexion Wrist extension Finger extension Hand field inspector Finger abduction RUE Absent 5 5 5 5 5 5 LUE Absent 5 5 5 5 5 5 Drift Hip flexion Knee extension Knee flexion Foot dorsiflexion Toe dorsiflexion Plantar flexion RLE 5 5 5 5 5 LLE 5 5 5 5 5 Fine Motor: no difficulty with finger-tapping Sensory: Bilaterally intact to light touch. Double simultaneous stimulation without extinction. Romberg absent. Coordination: Nbtzkp-wo-xhra without dysmetria bilaterally. Able to perform rapid alternating movements smoothly (finger taps, alternate hand pronation and supination). Reflexes: Biceps Triceps Brachioradialis Patella Achilles Right 2+ NT 2+ 2+ NT Left 2+ NT 2+ 2+ NT No clonus, No Alvarado's Gait: Wheelchair bound Data Reviewed and Summarized Labs: reviewed Imaging/Testing: reviewed Assessment and Plan Epilepsy Classification: epilepsy NOS Etiology: structural Mood: euthymic Comorbidities: mood disorder The patient is a 48 y.o. who returns for mood disorder, borderline personality disorder, psoriasis,and epilepsy since Jun 10, 1994 while at the [facility] when she experienced a convulsion. Previous provider ([facility]) followed her for kidney problems since age 25 now with improved renal function. She reports her last EEG was several years ago. Her fall frequency has worsened recently. She is in a motorized wheel chair today. She reports losing her balance, stating she uses a gait belt and walker. Her last seizure occurred in March,. She describes it as a brief left hand flexion greater thanright in a dystonic posture and then her left arm shakes uncontrollably with inability to talk after stating, I think Im going into a seizure. I am concerned Reema is experiencing nocturnal seizures on ASM polytherapy. I am recommending shebe admitted for diagnostic vEEG monitoring with an attempt to transition from Depakote and primidone (+/- Keppra) to another ASM regimen ( 3. Fycompa vs 2. topiramate vs 1. zonisamide). Will not change ASM her ASM regimen prior to admission. 1. 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) - [facility] - EEG SNF MONITORING 2 - 3 DAY EVAL Call Erin Phan to schedule study at [facility]n - [phone]. Follow up in about 3 months (around 10/06/2024). Education Sohail Hernandez MD PhD [facility] Outpatient Progress Note & Billing by Time (2020 NA Guidelines): Time: (All time spent by provider-only, including documentation, for pre-/ihpn-ce-bgnm/post- visit on the day of the visit ending at midnight on same day of visit). Encounter Code Level Time Spent (min) New Patient [id number] 15-29 [id number] 30-44 [id number] 45-59 [id number] 60-74 Established Patient [id number] 10-19 [id number] 20-29 30550 30-39 [id number] 40-54 Preparing for visit (review testing/procedures/notes) (min) Obtaining history (minutes) 30 Counseling, educating patient/family (minutes) 15 Ordering testing (minutes) Communicating with other providers (minutes) Charting (minutes) 30 Independently interpreting/documenting results (minutes) Communicating test results to patient/family (minutes) Total Time Today (min) = 75 documented in this [facility]08-30-2024 [facility] PATIENT: Reema Shah DATE / TIME: 06/16/24 2:06 PM POS: Office AGE: 48 y.o. : 1975 RACE: [1] SEX: female PCP: Jyoti Gupta MD REFERRAL: No ref. provider found TOS: SUBJECTIVE: Status post laparoscopic appendectomy on 06/05/2024 OBJECTIVE: BP (!) 142/84 Pulse 68 LMP (LMP Unknown) PE Constitutional: Well-developed and well-nourished. HENT: AT / NC, EOM normal, no icterus, pupils equal Neck: Normal range of motion. Neck supple. No thyromegaly present. Cardiovascular: Normal rate and regular rhythm. Pulmonary/Chest: Effort normal. No respiratory distress. No wheezes, rales or rhonchi. Abdominal: Soft. No distension. No tenderness. Incisions well-appearing no erythema fluctuance or drainage Musculoskeletal: Normal range of motion. No deformity. No edema. Neurological: Alert and oriented to person, place, and time. No cranial nerve deficit. Skin: Skin is warm and dry. Psychiatric: Normal mood and affect. Behavior is normal. Lab Results Component Value Date WBC 4.08 (L) 06/05/2024 WBC 4.10 03/22/2019 RBC 4.17 06/05/2024 HGB 12.8 06/05/2024 HGB 12.8 03/22/2019 HCT 38.9 06/05/2024 HCT 37.5 03/22/2019 PLT 74 (L) 06/05/2024 PLT 113 03/22/2019 Lab Results Component Value Date AMYLASE 26 11/16/2019 Lab Results Component Value Date LIPASE 66 (H) 06/04/2024 IMAGING: PATHOLOGY: Component Case Report Surgical Pathology Report Case: [id number] Authorizing Provider: Raúl Hudson MD Collected: 06/05/2024 04:36 PM Ordering Location: [facility] Periop Received: 06/06/2024 07:48 AM Pathologist: Salma Ren MD Specimen: Appendix Final Diagnosis A. Appendix, appendectomy: Acute appendicitis with acute serositis. ASSESSMENT: PLAN: Patient Active Problem List Diagnosis Essential hypertension Acute kidney injury superimposed on CKD (HCC) GERD (gastroesophageal reflux disease) Seizures (HCC) Hirsutism Hiatal hernia Depression with anxiety Scalp psoriasis Obesity, Class I, BMI 30.0-34.9 (see actual BMI) History of UTI Chest pain at rest Valproic acid toxicity Myoclonus Weakness Fall Hypokalemia Thrombocytopenia (HCC) Closed undisplaced fracture of nasal bone, initial encounter Hypothyroidism Chest pain Acute appendicitis Pathology reviewed No surgical site infection Patient can follow-up as needed AUTHENTICATED BY RAÚL HUDSON, ON 06/16/2024 14:13:27[facility] 06-16-2024 History of Present illness Narrative* Raúl Hudson MD - 06/16/2024 2:06 PM EDT [facility] PATIENT: Reema Shah DATE / TIME: 06/16/24 2:06 PM POS: Office AGE: 48 y.o. : 1975 RACE: [1] SEX: female PCP: Jyoti Gupta MD REFERRAL: No ref. provider found TOS: SUBJECTIVE: Status post laparoscopic appendectomy on 06/05/2024 OBJECTIVE: BP (!) 142/84 Pulse 68 LMP (LMP Unknown) PE Constitutional: Well-developed and well-nourished. HENT: AT / NC, EOM normal, no icterus, pupils equal Neck: Normal range of motion. Neck supple. No thyromegaly present. Cardiovascular: Normal rate and regular rhythm. Pulmonary/Chest: Effort normal. No respiratory distress. No wheezes, rales or rhonchi. Abdominal: Soft. No distension. No tenderness. Incisions well-appearing no erythema fluctuance or drainage Musculoskeletal: Normal range of motion. No deformity. No edema. Neurological: Alert and oriented to person, place, and time. No cranial nerve deficit. Skin: Skin is warm and dry. Psychiatric: Normal mood and affect. Behavior is normal. Lab Results Component Value Date WBC 4.08 (L) 06/05/2024 WBC 4.10 03/22/2019 RBC 4.17 06/05/2024 HGB 12.8 06/05/2024 HGB 12.8 03/22/2019 HCT 38.9 06/05/2024 HCT 37.5 03/22/2019 PLT 74 (L) 06/05/2024 PLT 113 03/22/2019 Lab Results Component Value Date AMYLASE 26 11/16/2019 Lab Results Component Value Date LIPASE 66 (H) 06/04/2024 IMAGING: PATHOLOGY: Component Case Report Surgical Pathology Report Case: [id number] Authorizing Provider: Raúl Hudson MD Collected: 06/05/2024 04:36 PM Ordering Location: [facility] Periop Received: 06/06/2024 07:48 AM Pathologist: Salma Ren MD Specimen: Appendix Final Diagnosis A. Appendix, appendectomy: Acute appendicitis with acute serositis. ASSESSMENT: PLAN: Patient Active Problem List Diagnosis Essential hypertension Acute kidney injury superimposed on CKD (HCC) GERD (gastroesophageal reflux disease) Seizures (HCC) Hirsutism Hiatal hernia Depression with anxiety Scalp psoriasis Obesity, Class I, BMI 30.0-34.9 (see actual BMI) History of UTI Chest pain at rest Valproic acid toxicity Myoclonus Weakness Fall Hypokalemia Thrombocytopenia (HCC) Closed undisplaced fracture of nasal bone, initial encounter Hypothyroidism Chest pain Acute appendicitis Pathology reviewed No surgical site infection Patient can follow-up as needed documented in this [id number] History of Present illness Narrative* Aviva Benedict - 06/06/2024 4:14 PM EDT Images from the original note were not included. Medical Transportation set up by CTS per hospital request: Date:06/06/24Wednesday Time:5:30pm Destination: [place] [id number] Company:[employer] [phone] Special needs/equipment:N/A Truck Type: Ambulance Companies called: [facility] * Chelo Saleh RN - 06/06/2024 3:55 PM EDT [facility] can no longer handle the ride for this patient due to their availability. The ride has beensent back to the [facility] and we'll notify you as soon as a new transport company claimsthis trip. * Aviva Benedict - 06/06/2024 1:25 PM EDT Medical Transportation set up by CTS per hospital request: Date:06/06/24Wednesday Time:5:30pm Destination: [place] [address] Company: [employer] ([phone]) Special needs/equipment:N/A Truck Type: Ambulance Companies called: [facility] * Chelo Saleh RN - 06/06/2024 1:04 PM EDT Transport request received and is being scheduled, trip information will follow as soon as the timeis secured. * Destiny Ayers RN - 06/06/2024 12:17 PM EDT Care Management Progress Note Date: 06/06/2024 Time: 12:17 PM Patient Name: Reema Shah Date of : 1975 Discharge Plan: Plan A: Intermediate Care facility Plan A : Post Acute Patient Choice 1: [facility] Discharging Transportation Plan: Discharge Plan Status: pend dc today Assessment and Background Information: Per INTERNET MARKETING SPECIALIST, plan is for pt to discharge back to [place] today. Pt aware and provided SNF list so if she wants to switch SNF's she can work on it from [place]. Pt voices no further questions/concerns/needs and requests transport be after dinner. Ambulance transport requested. CM to follow. Addendum 1520 Transport is set up for 1729 and form printed to floor. Treatment team updated. Elton, CAITLYN, updated [place]. * Raúl Hudson MD - 06/06/2024 9:49 AM EDT General surgery progress note No acute events overnight Patient. Tolerated diet last night and this morning Denies nausea or vomiting Blood pressure (!) 169/78, pulse 76, temperature 97.7 F (36.5 C), temperature source Oral, resp. rate 16, height 4' 7, weight 71.2 kg (156 lb 15.5 oz), SpO2 93%, not currently . General awake alert no acute distress Respiratory nonlabored CV nontachycardic Abdomen is obese, soft incisions are intact no erythema fluctuance or drain Lab work reviewed Plan From surgical standpoint patient is able to be discharged Had multiple complaints about mobility issues this morning, PT ordered to help assess the patient for any resources needed Hep-Lock IV fluids Lovenox added for prophylactic coverage Encourage out of bed, increased ambulation and movement Surgical service to sign off, please call with further questions or concerns Discharge tab updated with follow-up and discharge instructions * Kindra Hernandez CNP - 06/06/2024 9:44 AM EDT [facility] DAILY PROGRESS NOTE SURGICAL PROBLEM Appendicitis ASSESSMENT & PLAN/ACTIVE MEDICAL PROBLEMS: Appendicitis POD 1 laparoscopic appendicitis Tolerating reg diet, no nausea or emesis Abdomen tender as to be expected, lap sites well approximated Afebrile - okay from surgery standpoint to sc, follow up in 1-[address] Hudson SURGERIES/PROCEDURES: Date Operation/Procedure Provider Name 06/05/[address] Hudson RESOLVED PROBLEMS: CHIEF COMPLAINT/ HPI / PFSHx / EVENTS OVER LAST 24HRS: No acute events overnight. Patient overall doing well. Per nursing patient tolerated meal last night and this am. Patient reluctant to return back to SNF. REVIEW OF SYSTEMS: Other than the above items the remainder of the complete ROS is otherwise unchanged from admission. PHYSICAL EXAM: Temp: [97 F (36.1 C)-98 F (36.7 C)] 97.7 F (36.5 C) Heart Rate: [63-99] 76 Resp: [14-18] 16 BP: (150-189)/(77-116) 169/78 GENERAL: Appears age appropriate. No acute distress. NEUROLOGICAL: Alert and oriented X 3. Head Eyes Ear Nose Throat: Head: Atraumatic, normocephalic. Eyes: Conjunctivae/sclerae/corneas clear. Ears: External ear normal. Hearing within normal limits for patient. No drainage. Nose: nares normal Throat: phonation normal Neck: Supple, trachea midline CARDIOVASCULAR: Regular rate and rhythm. RESPIRATORY: Respiratory effort unlabored without use of accessory muscles. ABDOMINAL: Rounded, soft, tender to palpation as to be expected, lap sites well approximated without drainage or SS of infection, softly distended, normal bowel sounds. No guarding or peritoneal signs. GENITOURINARY: Normal genitalia for age without lesion or trauma. MUSCULOSKELETAL: Extremities atraumatic without gross deformity x4 SKIN: Skin warm and dry. No rashes or lesions. Intake/Output Summary (Last 24 hours) at 06/06/2024 0944 Last data filed at 06/06/2024 0800 Gross per 24 hour Intake 1180 ml Output 1003 ml Net 177 ml IMAGING [briefly note any results pertinent to today's evaluation]: No new imaging LABS Lab Results Component Value Date WBC 4.08 (L) 06/05/2024 HGB 12.8 06/05/2024 HCT 38.9 06/05/2024 MCV 93.3 06/05/2024 EXTMCV 90.6 03/22/2019 PLT 74 (L) 06/05/2024 RBC 4.17 06/05/2024 Lab Results Component Value Date GLUCOSE 81 06/05/2024 CALCIUM 8.5 06/05/2024 NA 139 06/05/2024 K 4.4 06/05/2024 CL 108 06/05/2024 BUN 20 06/05/2024 CREATININE 1.34 (H) 06/05/2024 Lab Results Component Value Date ALT 11 06/05/2024 AST 22 06/05/2024 ALKPHOS 72 06/05/2024 BILITOT 0.2 06/05/2024 DAILY CHECKLIST: *Need for Restraints: no *Need for Urinary Catheter: no *Need for Central Access Devices: no *Stress Ulcer Prophylaxis: diet *VTE Prophylaxis (Body mass index is 36.48 kg/m ., Estimated Creatinine Clearance: 33.6 mL/min (A) (by C-G formula based on SCr of 1.34 mg/dL (H)).): per primary *Home Medications Reconciled: per primary *Code Status: full Associated attestation - Raúl Hudson MD - 06/06/2024 9:54 AM EDT I agree with the Advanced Practice Provider note with the same day of service. The patient was seenand examined by me, the attending surgeon, on rounds on the date of service listed above. I have reviewed the Advanced Practice Provider note with the relevant labs, studies, and field technical support consultant notes. I have reviewed and agree with the documented history, exam, and plan of care. The below note includesmy discussion, exams, and review of relevant labs and imaging. See my note * Ruth Blanca CNP - 06/05/2024 2:19 PM EDT [facility] -- [facility] Patient Name: Reema Shah : 1975 MR #: [id number] Admit Date: 06/04/2024 Physicians: Jyoti Gupta MD (Family); No ref. provider found (Referring) Reema Shah is a 48 y.o. female patient of Jeanie Ayala MD with history of Thrombocytopenia, anxiety, CKD, CHF, depression, epilepsy, fatty liver, gastritis, MR, MELQUIADES, stroke, tremor presented to [facility] with abdominal pain. Acute appendicitis Admit to med surg floor Consult surgery team NPO Gentle IV hydration IV flagyl cipro OR in am Pain control: all oral opioids cause severe NV Tolerates IM morphine, Epilepsy Myoclonic jerks holding primidone Will continue Keppra 500 mg iv bid and Depakote ER 500mg iv BID CKD stage IIIa creatinine baseline between 1.3-1.5. Continue to monitor. Chronic diastolic congestive heart failure Clinically compensated EF 59% per [place] perfusion study 2018 Continue metoprolol. Hypertension Dyslipidemia Continue amlodipine and hydrochlorothiazide and statin Depression and anxiety On Zoloft and taking benzodiazepines. Will continue post op Gout and hyperuricemia On allopurinol. Will hold Hypothyroidism Holding synthroid Last TSH was 3.3 on 03/05/24 Obstructive sleep apnea On CPAP Fatty liver Continue to monitor GERD Protonix Residence prior to admission: house or apartment Was patient transferred from outlying hospital or ED no Quality Measures DVT Prophylaxis: SCds Lyon Catheter: absent Medication Reconciliation: Verified Admitted with these risk variables:Acute Kidney Injury. Please see assessment and plan for further details. Estimated Date of Discharge less than 2 midnights Code Status Full Code; code status verified on 06/04/2024 with patient (capacity intact) Subjective: I am still in pain and I am hungry, I hope they do the surgery soon. Review Of Systems All relevant systems have been reviewed and are negative except as noted in HPI or below Physical Examination BP (!) 169/92 Pulse 67 Temp 98.1 F (36.7 C) (Oral) Resp 16 Ht 4' 7 Wt 71.2 kg (157 lb) SpO2 95% BMI 36.49 kg/m General Appearance: alert; acutely ill appearing; in moderate acute distress HEENT: Head- normocephalic; Eyes- EOMI, sclera anicteric; Throat- mucous membranes moist Cardiovascular: regular rate and rhythm; normal S1, S2; no murmurs, rubs, clicks or gallops; peripheral edema 1+ Respiratory: lungs clear to auscultation; without wheezes, rales or rhonchi; on room air Abdomen: Firm move right lower quadrant tender rigidity and rebound slightly distended Neurological: oriented x 3; normal speech; no focal findings or movement disorder noted Musculoskeletal: no significant deformity or tenderness to palpation Skin: normal coloration Psych: normal mood and affect documented in this [id number] NoteHMS DISCHARGE SUMMARY -- [facility] Reema Shah Admitted: 06/04/2024 Discharge Date: 06/06/24 PCP Handoff Recommended Outpatient Testing None Results Pending At Discharge none Clinical Summary Reema Shah is a 48 y.o. female patient of Jeanie Ayala MD with history of Thrombocytopenia, anxiety, CKD, CHF, depression, epilepsy, fatty liver, gastritis, MR, MELQUIADES, stroke, tremor presented to [facility] with abdominal pain. Diagnosed with acute appendicitis. Lap appendectomy on 06/05, tolerated well. Per trauma team patient is reluctant to return to [place] and has complaints about mobility. travel manager discussed with patient that she has just been at [place] one day, and she will need to return and discuss options with their RETRIEVAL SPECIALIST. During evaluation pt complained of kidney pain that started [address] scan on 06/04 was neg for kidney stones and hydronephrosis, and showed normal size, morphology and contrast-enhancement. Stat renal function panel showed creatinine of 1.41, which is within patient's baseline. Patient is afebrile. Morphine IM is tolerated by patient for pain, and a paper script is ready for discharge. Ambulance is scheduled for 5:30 today Acute appendicitis S/p lab appendectomy Admit to med surg floor Consult surgery team NPO Gentle IV hydration IV yo Hudson on 06/05 for surgery lap appy Pain control: all oral opioids cause severe NV Tolerates IM morphine, Cleared to discharge back to ECF per surgery Pt tolerating diet Epilepsy Myoclonic jerks holding primidone Will continue Keppra 500 mg iv bid and Depakote ER 500mg iv BID Resume po meds at discharge CKD stage IIIa creatinine baseline between 1.3-1.5. Continue to monitor. Chronic diastolic congestive heart failure Clinically compensated EF 59% per [place] perfusion study 2018 Continue metoprolol. Hypertension Dyslipidemia Continue amlodipine and hydrochlorothiazide and statin Depression and anxiety On Zoloft and taking benzodiazepines. Will continue post op Gout and hyperuricemia On allopurinol. Will hold Hypothyroidism Holding synthroid Last TSH was 3.3 on 03/05/24 Obstructive sleep apnea On CPAP Fatty liver Continue to monitor GERD Protonix Discharge Medications Discharge Medications New Medications Details morphine 4 mg/mL Syrg Inject 0.5 mL (2 mg total) into the shoulder, thigh, or buttocks every 6 (six) hours as needed (Days supply per fill: 3) . Quantity: 6 mL naloxone 4 mg/actuation [place] Commonly known as: NARCAN Administer 1 spray into one nostril for known or suspected opioid overdose. If patient worsens or does not respond, may repeat in 2-3 minutes. . Quantity: 2 each ondansetron 4 MG disintegrating tablet Commonly known as: ZOFRAN-ODT Dissolve 1 (one) tablet (4 mg total) on top of tongue every 8 (eight) hours as needed for nausea . Quantity: 20 tablet Modified Medications Details artificial tears (polyethylene glycol 400) 1 % Drop What changed: Another medication with the same name was removed. Continue taking this medication, and follow the directions you see here. Administer 1 (one) drop to both eyes nightly . atorvastatin 20 MG tablet Commonly known as: LIPITOR What changed: Another medication with the same name was removed. Continue taking this medication, and follow the directions you see here. Take 1 (one) tablet (20 mg total) by mouth at bedtime . busPIRone 10 MG tablet Commonly known as: BUSPAR What changed: Another medication with the same name was removed. Continue taking this medication, and follow the directions you see here. Take 1 (one) tablet (10 mg total) by mouth 3 (three) times a day . levETIRAcetam 500 MG tablet Commonly known as: KEPPRA What changed: Another medication with the same name was removed. Continue taking this medication, and follow the directions you see here. Take 1 (one) tablet (500 mg total) by mouth 2 (two) times a day . LORazepam 2 MG tablet Commonly known as: ATIVAN What changed: Another medication with the same name was removed. Continue taking this medication, and follow the directions you see here. Take 1 (one) tablet (2 mg total) by mouth at bedtime For anxiety and epilepsy . Medications To Continue Details acetaminophen 325 MG tablet Commonly known as: TYLENOL Take 2 (two) tablets (650 mg total) by mouth every 8 (eight) hours as needed (mild pain) . albuterol 2.5 mg /3 mL (0.083 %) nebulizer solution Commonly known as: PROVENTIL Take 3 mL (2.5 mg total) by nebulization every 6 (six) hours as needed for shortness of breath . allopurinoL 300 MG tablet Commonly known as: ZYLOPRIM Take 1 (one) tablet (300 mg total) by mouth every morning . benzocaine-menthoL 20-0.26 % Gel by Gums route every 6 (six) hours as needed (sore gums) Apply to gums as needed . (more content not included)...[facility]08-20-2024 Hospital course Narrative* Ruth Blanca CNP - 06/06/2024 2:11 PM EDT [facility] [place] -- [facility] Reema Shah Admitted: 06/04/2024 Discharge Date: 06/06/24 PCP Handoff Recommended Outpatient Testing None Results Pending At Discharge none Clinical Summary Reema Shah is a 48 y.o. female patient of Jeanie Ayala MD with history of Thrombocytopenia, anxiety, CKD, CHF, depression, epilepsy, fatty liver, gastritis, MR, MELQUIADES, stroke, tremor presented to [facility] with abdominal pain. Diagnosed with acute appendicitis. Lap appendectomy on 06/05, tolerated well. Per trauma team patient is reluctant to return to [place] and has complaints about mobility. travel manager [place] and she will need to return and discuss options with their RETRIEVAL SPECIALIST. During evaluation pt complained of kidney pain that started [address] scan on 06/04 was neg for kidney stones and hydronephrosis, and showed normal size, morphology and contrast-enhancement. Stat renal function panel showed creatinine of 1.41, which is within patient's baseline. Patient is afebrile. Morphine IM is tolerated by patient for pain, and a paper script is ready for discharge. Ambulance is scheduled for 5:30 today Acute appendicitis S/p lab appendectomy Admit to med surg floor Consult surgery team NPO Gentle IV hydration IV yo Hudson on 06/05 for surgery lap appy Pain control: all oral opioids cause severe NV Tolerates IM morphine, Cleared to discharge back to ECF per surgery Pt tolerating diet Epilepsy Myoclonic jerks holding primidone Will continue Keppra 500 mg iv bid and Depakote ER 500mg iv BID Resume po meds at discharge CKD stage IIIa creatinine baseline between 1.3-1.5. Continue to monitor. Chronic diastolic congestive heart failure Clinically compensated EF 59% per [place] perfusion study 2018 Continue metoprolol. Hypertension Dyslipidemia Continue amlodipine and hydrochlorothiazide and statin Depression and anxiety On Zoloft and taking benzodiazepines. Will continue post op Gout and hyperuricemia On allopurinol. Will hold Hypothyroidism Holding synthroid Last TSH was 3.3 on 03/05/24 Obstructive sleep apnea On CPAP Fatty liver Continue to monitor GERD Protonix Discharge Medications Discharge Medications New Medications Details morphine 4 mg/mL Syrg Inject 0.5 mL (2 mg total) into the shoulder, thigh, or buttocks every 6 (six) hours as needed (Days supply per fill: 3) . Quantity: 6 mL naloxone 4 mg/actuation [place] Commonly known as: NARCAN Administer 1 spray into one nostril for known or suspected opioid overdose. If patient worsens or does not respond, may repeat in 2-3 minutes. . Quantity: 2 each ondansetron 4 MG disintegrating tablet Commonly known as: ZOFRAN-ODT Dissolve 1 (one) tablet (4 mg total) on top of tongue every 8 (eight) hours as needed for nausea . Quantity: 20 tablet Modified Medications Details artificial tears (polyethylene glycol 400) 1 % Drop What changed: Another medication with the same name was removed. Continue taking this medication, and follow the directions you see here. Administer 1 (one) drop to both eyes nightly . atorvastatin 20 MG tablet Commonly known as: LIPITOR What changed: Another medication with the same name was removed. Continue taking this medication, and follow the directions you see here. Take 1 (one) tablet (20 mg total) by mouth at bedtime . busPIRone 10 MG tablet Commonly known as: BUSPAR What changed: Another medication with the same name was removed. Continue taking this medication, and follow the directions you see here. Take 1 (one) tablet (10 mg total) by mouth 3 (three) times a day . levETIRAcetam 500 MG tablet Commonly known as: KEPPRA What changed: Another medication with the same name was removed. Continue taking this medication, and follow the directions you see here. Take 1 (one) tablet (500 mg total) by mouth 2 (two) times a day . LORazepam 2 MG tablet Commonly known as: ATIVAN What changed: Another medication with the same name was removed. Continue taking this medication, and follow the directions you see here. Take 1 (one) tablet (2 mg total) by mouth at bedtime For anxiety and epilepsy . Medications To Continue Details acetaminophen 325 MG tablet Commonly known as: TYLENOL Take 2 (two) tablets (650 mg total) by mouth every 8 (eight) hours as needed (mild pain) . albuterol 2.5 mg /3 mL (0.083 %) nebulizer solution Commonly known as: PROVENTIL Take 3 mL (2.5 mg total) by nebulization every 6 (six) hours as needed for shortness of breath . allopurinoL 300 MG tablet Commonly known as: ZYLOPRIM Take 1 (one) tablet (300 mg total) by mouth every morning . benzocaine-menthoL 20-0.26 % Gel by Gums route every 6 (six) hours as needed (sore gums) Apply to gums as needed . benzonatate 200 MG capsule Commonly known as: TESSALON Take 1 (one) capsule (200 mg total) by mouth every 8 (eight) hours as needed for cough . bisacodyL 10 mg suppository Commonly known as: DULCOLAX Insert 1 (one) suppository (10 mg total) into the rectum daily as needed for constipation . calcium carbonate 215 mg calcium (500 mg) Chew Chew and Swallow 1 (one) tablet (500 mg total) daily as needed (heartburn, indigestion) . calcium carbonate-vitamin D3 600 mg-10 mcg (400 unit) per tablet Take 1 (one) tablet by mouth 2 (two) times a day . cyanocobalamin 1000 MCG tablet Commonly known as: B-12 Take 1 (one) tablet (1,000 mcg total) by mouth daily . divalproex 500 MG delayed release (DR) tablet Commonly known as: DEPAKOTE Take 1 (one) tablet (500 mg total) by mouth 2 (two) times a day . famotidine 10 MG tablet Commonly known as: PEPCID Take 2 (two) tablets (20 mg total) by mouth daily . guaiFENesin 400 mg Tab Commonly known as: HUMIBID 3 Take 1 (one) tablet (400 mg total) by mouth every 6 (six) hours as needed (allergies) . levothyroxine 25 MCG tablet Commonly known as: SYNTHROID, LEVOTHROID Take 1 (one) tablet (25 mcg total) by mouth every morning . lidocaine 5 % patch Commonly known as: LIDODERM Place 1 (one) patch on the skin every morning To back Remove & Discard patch within 12 hours or as directed by MD . lisinopriL 20 MG tablet Commonly known as: PRINIVIL,ZESTRIL Take 1 (one) tablet (20 mg total) by mouth every morning . loratadine 10 mg tablet Commonly known as: CLARITIN Take 1 (one) tablet (10 mg total) by mouth at bedtime . magnesium hydroxide 400 mg/5 mL Susp Take 30 mL (2,400 mg total) by mouth daily as needed Reasons: constipation. magnesium oxide 400 mg (241.3 mg magnesium) tablet Commonly known as: MAG-OX Take 1 (one) tablet (400 mg total) by mouth every morning . meclizine 50 MG tablet Commonly known as: ANTIVERT Take 1 (one) tablet (50 mg total) by mouth every 8 (eight) hours as needed for dizziness . melatonin 10 mg Tab Take 10 mg by mouth nightly as needed (insomnia) . metoprolol tartrate 25 MG tablet Commonly known as: LOPRESSOR Take 1 (one) tablet (25 mg total) by mouth 2 (two) times a day . potassium chloride SA 20 MEQ tablet Commonly known as: K-DUR,KLOR-CON Take 1 (one) tablet (20 mEq total) by mouth 2 (two) times a day . primidone 50 MG tablet Commonly known as: MYSOLINE Take 4 (four) tablets (200 mg total) by mouth every 12 (twelve) hours . sertraline 100 MG tablet Commonly known as: ZOLOFT Take 1 (one) tablet (100 mg total) by mouth 2 (two) times a day . sodium phosphates 19-7 gram/118 mL Enem Commonly known as: FLEETS ADULT Insert 1 (one) each into the rectum daily as needed Reasons: constipation. Stopped Medications amLODIPine 10 MG tablet Commonly known as: NORVASC artificial tears(hypromellose) 0.5 % ophthalmic solution Commonly known as: ISOPTO TEARS diclofenac sodium 1% 1 % Gel Commonly known as: VOLTAREN levETIRAcetam 750 MG tablet Commonly known as: Keppra You also have another medication with the same name that you need to continue taking as instructed. Physician(s) Follow Up: Raúl Hudson MD [address] [facility] [place] [address] [place] [id number] Schedule an appointment as soon as possible for a visit in 2 week(s) s/p appendectomy [place] [facility] [place] [id number] Condition at Discharge: Stable Disposition: SNF I reviewed discharge recommendations with the patient in person. Patient instructions, including activity, were given to the patient/family at discharge. On day of discharge I saw Reema Shah and spent: > 30 minutes on discharge. Completed by: Ruth Blanca CNP on 06/06/24, 2:11 PM documented in this [id number] NoteGeneral surgery progress note No acute events overnight Patient. Tolerated diet last night and this morning Denies nausea or vomiting Blood pressure (!) 169/78, pulse 76, temperature 97.7 degrees F (36.5 degrees C), temperature source Oral, resp. rate 16, height 4' 7, weight 71.2 kg (156 lb 15.5 oz), SpO2 93%, not currently . General awake alert no acute distress Respiratory nonlabored CV nontachycardic Abdomen is obese, soft incisions are intact no erythema fluctuance or drain Lab work reviewed Plan From surgical standpoint patient is able to be discharged Had multiple complaints about mobility issues this morning, PT ordered to help assess the patient for any resources needed Hep-Lock IV fluids Lovenox added for prophylactic coverage Encourage out of bed, increased ambulation and movement Surgical service to sign off, please call with further questions or concerns Discharge tab updated with follow-up and discharge instructions AUTHENTICATED BY RAÚL HUDSON, ON 06/06/2024 09:53:29[facility] 06-06-2024 Note Attestation signed by Raúl Hudson MD at 06/06/2024 9:54 AM I agree with the Advanced Practice Provider note with the same day of service. The patient was seen and examined by me, the attending surgeon, on rounds on the date of service listed above. I have reviewed the Advanced Practice Provider note with the relevant labs, studies, and field technical support consultant notes. I have reviewed and agree with the documented history, exam, and plan of care. The below note includes my discussion, exams, and review of relevant labs and imaging. See my note [facility] DAILY PROGRESS NOTE SURGICAL PROBLEM Appendicitis ASSESSMENT & PLAN/ACTIVE MEDICAL PROBLEMS: Appendicitis POD 1 laparoscopic appendicitis Tolerating reg diet, no nausea or emesis Abdomen tender as to be expected, lap sites well approximated Afebrile - okay from surgery standpoint to sc, follow up in 1-[address] Hudson SURGERIES/PROCEDURES: Date Operation/Procedure Provider Name 06/05/[address] Hudson RESOLVED PROBLEMS: CHIEF COMPLAINT/ HPI / PFSHx / EVENTS OVER LAST 24HRS: No acute events overnight. Patient overall doing well. Per nursing patient tolerated meal last night and this am. Patient reluctant to return back to SNF. REVIEW OF SYSTEMS: Other than the above items the remainder of the complete ROS is otherwise unchanged from admission. PHYSICAL EXAM: Temp: [97 degrees F (36.1 degrees C)-98 degrees F (36.7 degrees C)] 97.7 degrees F (36.5 degrees C) Heart Rate: [63-99] 76 Resp: [14-18] 16 BP: (150-189)/(77-116) 169/78 GENERAL: Appears age appropriate. No acute distress. NEUROLOGICAL: Alert and oriented X 3. Head Eyes Ear Nose Throat: Head: Atraumatic, normocephalic. Eyes: Conjunctivae/sclerae/corneas clear. Ears: External ear normal. Hearing within normal limits for patient. No drainage. Nose: nares normal Throat: phonation normal Neck: Supple, trachea midline CARDIOVASCULAR: Regular rate and rhythm. RESPIRATORY: Respiratory effort unlabored without use of accessory muscles. ABDOMINAL: Rounded, soft, tender to palpation as to be expected, lap sites well approximated without drainage or SS of infection, softly distended, normal bowel sounds. No guarding or peritoneal signs. GENITOURINARY: Normal genitalia for age without lesion or trauma. MUSCULOSKELETAL: Extremities atraumatic without gross deformity x4 SKIN: Skin warm and dry. No rashes or lesions. Intake/Output Summary (Last 24 hours) at 06/06/2024 0944 Last data filed at 06/06/2024 0800 Gross per 24 hour Intake 1180 ml Output 1003 ml Net 177 ml IMAGING [briefly note any results pertinent to today's evaluation]: No new imaging LABS Lab Results Component Value Date WBC 4.08 (L) 06/05/2024 HGB 12.8 06/05/2024 HCT 38.9 06/05/2024 MCV 93.3 06/05/2024 EXTMCV 90.6 03/22/2019 PLT 74 (L) 06/05/2024 RBC 4.17 06/05/2024 Lab Results Component Value Date GLUCOSE 81 06/05/2024 CALCIUM 8.5 06/05/2024 NA 139 06/05/2024 K 4.4 06/05/2024 CL 108 06/05/2024 BUN 20 06/05/2024 CREATININE 1.34 (H) 06/05/2024 Lab Results Component Value Date ALT 11 06/05/2024 AST 22 06/05/2024 ALKPHOS 72 06/05/2024 BILITOT 0.2 06/05/2024 DAILY CHECKLIST: *Need for Restraints: no *Need for Urinary Catheter: no *Need for Central Access Devices: no *Stress Ulcer Prophylaxis: diet *VTE Prophylaxis (Body mass index is 36.48 kg/m ., Estimated Creatinine Clearance: 33.6 mL/min (A) (by C-G formula based on SCr of 1.34 mg/dL (H)).): per primary *Home Medications Reconciled: per primary *Code Status: full AUTHENTICATED BY KINDRA HERNANDEZ, ON 06/06/2024 09:49:41[facility] 06-06-2024 Hospital Discharge instructions* Discharge Instructions* Sondra Matson, CHAYA - 06/06/2024 4:19 AM EDT LAPAROSCOPIC APPENDECTOMY (Appendix Removal) Your appendectomy was done as a laparoscopic surgery. That means it was done with only small cuts. These cuts are called incisions. The doctor put a lighted tube, or scope, and other surgical tools through the cuts in your abdomen. The doctor was able to see your organs with the scope. The doctor removed the appendix. The cuts heal quickly, and the scars usually fade over time. To heal properly: Do not do any rough or demanding activity until follow up with the Outpatient Trauma/[facility] office. We suggest you: Do not lift anything over 5 pounds (the weight of a gallon of milk) Do not participate in any sports Protect yourself from getting hit in the abdomen Do not drive or return to work At your Outpatient Trauma office appointment, you will get specific instructions on when you may resume these activities. Dressing: Your incisions have been closed with kenny or sutures as determined by your surgeon. Dressings will cover your incisions. Keep your dressings clean and dry for 48 hours after surgery. The kenny or sutures will be removed at your Outpatient Trauma office follow up appointment. You may shower. If you have steri-strips (thin strips of white tape), leave them in place until your appointment with the Outpatient Trauma office. If you have a Topical Skin Adhesive (or glue), this would naturally come off your skin in 5-10 days. Do not rub, scratch, or pick at the glue. Do not apply any medications on any products to wound while the glue is in place. You may shower only, after 24 hrs. No bathing, immersion or swimming for at least 10 days. You will have a post-operative visit with a underwriting sales representative of the surgery team. At that appointmentyou will receive instructions on returning to work. Call the Outpatient Trauma/ [facility] office [phone] for advice (Wednesday-Wednesday, 8am to 4pm) or proceed to the nearest Emergency Department if: You feel weak, lightheaded, or dizzy when you sit up or stand. Develop fever, chills, nausea, or vomiting You have increased abdominal or chest pain Your skin is pale, cool and/or clammy You have a rapid increase in your heart rate while resting. * Discharge Instr - AVS First Page* Raúl Hudson MD - 06/06/2024 9:53 AM EDT Incisions closed with glue No need for dressings Okay to shower 06/06/2024 Allow soap and water to run over the incisions, do not scrub, pat dry Lifting restriction of 20 pounds until seen in office for follow-up Please call the office or present to the emergency room for any of the following Fever greater than 101.5 Significant redness or purulent drainage from the incisions Increased abdominal pain, nausea or vomiting Inability to pass gas or have bowel movements documented in this [id number] Note* Plan of Care - Jojo Calderón RN - 06/06/2024 2:10 AM EDT Problem: Actual or potential alteration in health Goal: Absence of healthcare acquired conditions Outcome: Partially Met Goal: Knowledge of Interdisciplinary Plan of Care Outcome: Partially Met Goal: Knowledge of Enviroment Outcome: Partially Met Problem: Pain Goal: Reduced pain sensation Outcome: Partially Met Goal: Control of acute pain to acceptable level Outcome: Partially Met Goal: Able to cope with pain Outcome: Partially Met Goal: Able to achieve maximum level of physical functioning Outcome: Partially Met Goal: Able to achieve maximum level of psychosocial functioning Outcome: Partially Met Problem: Pressure Injury, Risk of Goal: Absence of pressure injury Outcome: Partially Met Problem: Falls, Risk of Goal: Absence of falls Outcome: Partially Met Goal: Absence of physical injury Outcome: Partially Met [id number] Miscellaneous Notes* Plan of Care - Jojo Calderón RN - 06/06/2024 2:10 AM EDT Problem: Actual or potential alteration in health Goal: Absence of healthcare acquired conditions Outcome: Partially Met Goal: Knowledge of Interdisciplinary Plan of Care Outcome: Partially Met Goal: Knowledge of Enviroment Outcome: Partially Met Problem: Pain Goal: Reduced pain sensation Outcome: Partially Met Goal: Control of acute pain to acceptable level Outcome: Partially Met Goal: Able to cope with pain Outcome: Partially Met Goal: Able to achieve maximum level of physical functioning Outcome: Partially Met Goal: Able to achieve maximum level of psychosocial functioning Outcome: Partially Met Problem: Pressure Injury, Risk of Goal: Absence of pressure injury Outcome: Partially Met Problem: Falls, Risk of Goal: Absence of falls Outcome: Partially Met Goal: Absence of physical injury Outcome: Partially Met * Plan of Care - Mal Olivares RN - 06/05/2024 6:29 PM EDT Poc Problem: Actual or potential alteration in health Goal: Absence of healthcare acquired conditions Outcome: Not Met Goal: Knowledge of Interdisciplinary Plan of Care Outcome: Not Met Goal: Knowledge of Enviroment Outcome: Not Met Problem: Pain Goal: Reduced pain sensation Outcome: Not Met Goal: Control of acute pain to acceptable level Outcome: Not Met Goal: Able to cope with pain Outcome: Not Met Goal: Able to achieve maximum level of physical functioning Outcome: Not Met Goal: Able to achieve maximum level of psychosocial functioning Outcome: Not Met Problem: Pressure Injury, Risk of Goal: Absence of pressure injury Outcome: Not Met Problem: Falls, Risk of Goal: Absence of falls Outcome: Not Met Goal: Absence of physical injury Outcome: Not Met * Op Note - Raúl Hudson MD - 06/05/2024 4:19 PM EDT OPERATIVE REPORT DATE OF SURGERY: 06.05.24 SURGEON: Raúl Hudson MD ELECTRIC ACCOUNTING MACHINE OPERATOR(S): none PREOPERATIVE DIAGNOSIS: Acute appendicitis. POSTOPERATIVE DIAGNOSIS: Acute appendicitis. OPERATION: Laparoscopic appendectomy. ANESTHESIA: General endotracheal anesthesia. ESTIMATED BLOOD LOSS: 5 mL IV FLUIDS: See anes mL crystalloid URINE OUTPUT: 100 mL SPECIMENS: Appendix to Pathology. DRAINS: none. FINDINGS: Acute appendicitis, nonperforated Grossly normal abdomen, otherwise. INDICATIONS FOR SURGERY: See h/p DESCRIPTION OF PROCEDURE: The patient was taken to the operating room, placed in the supine position on the OR table. Sequential compression stockings were placed on both legs. General anesthesia andperioperative antibiotics were administered. A Lyon catheter was inserted using sterile technique.The patient's abdomen was prepped with ChloraPrep and draped to create a sterile field. A time-out was done. All incisions were first injected with local anesthetic. Small infraumbilical midline incision was made and using electrocautery dissected down to the level of the anterior fascia. Anterior f ascia was incised abdomen was bluntly entered without injury to underlying viscus. Ballooned 12mm trocar was then secured to the fascia with 0- Vicryl stay sutures. Pneumoperitoneum was established. An additional suprapubic 5 mm trocar was inserted as well as a 5mm left lower quadrant trocar lateral to the inferior epigastrics. The greater omentum and small bowel were reflected to the upper abdomen. The terminal ileum was followed to its intersection with the cecum, where the appendix came intoview. The appendix was elevated with a grasper and mobilized. A [place] dissector was used to create a window at the base of the mesoappendix. An Hundred 45 stapler with a blue cartridge was used todivide the base of the appendix. Mesoappendix was controlled using laparoscopic LigaSure. There wasgood hemostasis of the staple line. The appendix was placed in a retrieval bag and removed through the umbilical port site. The right lower quadrant was inspected. Cecal staple lines was intact. There were no apparent injuries to the adjacent anatomy. Fluid from the pelvis was suctioned. The omentum and small bowel were returned to the lower abdomen. The trocars were removed without any bleeding noted from the inside abdominal wall. After confirming no problems with a 360 degree survey of the abdomen, the camera was withdrawn. The Sally was removed, evacuating the pneumoperitoneum. The fascia at the umbilicus was closed using interrupted 0 Vicryl sutures. The fascia was palpated to confirmno residual defect. The skin at each incision was closed with 4-0monocryl and glue. Additional local anesthetic was injected at each trocar site. All instrument and sponge counts were correct at the end of the case. The patient tolerated the procedure well. The Lyon catheter was removed. She was aw akened, extubated and taken to PACU in good condition. * Plan of Care - Litzy Ma RN - 06/05/2024 1:58 PM EDT Plan of care reviewed and interventions continued. Plan for surgery today with . Pain and anxiety management with Ativan and Morphine. Fall risk precautions used. Problem: Actual or potential alteration in health Goal: Absence of healthcare acquired conditions Outcome: Partially Met Goal: Knowledge of Interdisciplinary Plan of Care Outcome: Partially Met Goal: Knowledge of Enviroment Outcome: Partially Met Problem: Pain Goal: Reduced pain sensation Outcome: Partially Met Goal: Control of acute pain to acceptable level Outcome: Partially Met Goal: Able to cope with pain Outcome: Partially Met Goal: Able to achieve maximum level of physical functioning Outcome: Partially Met Goal: Able to achieve maximum level of psychosocial functioning Outcome: Partially Met Problem: Pressure Injury, Risk of Goal: Absence of pressure injury Outcome: Partially Met Problem: Falls, Risk of Goal: Absence of falls Outcome: Partially Met Goal: Absence of physical injury Outcome: Partially Met * ED Procedure Note - Bang Tovar DO - 06/04/2024 11:35 PM EDTAssociated Order(s): EKG 12-lead EKG 12-lead Date/Time: 06/04/2024 9:39 PM Performed by: Bang Tovar DO Authorized by: Bang Tovar DO Interpreted by ED attending physician Rhythm: sinus rhythm BPM: 70 Conduction: conduction normal ST Segments: ST segments normal T Waves: T waves normal Clinical impression: normal ECG documented in this [id number] Note* Plan of Care - Mal Olivares RN - 06/05/2024 6:29 PM EDT Poc Problem: Actual or potential alteration in health Goal: Absence of healthcare acquired conditions Outcome: Not Met Goal: Knowledge of Interdisciplinary Plan of Care Outcome: Not Met Goal: Knowledge of Enviroment Outcome: Not Met Problem: Pain Goal: Reduced pain sensation Outcome: Not Met Goal: Control of acute pain to acceptable level Outcome: Not Met Goal: Able to cope with pain Outcome: Not Met Goal: Able to achieve maximum level of physical functioning Outcome: Not Met Goal: Able to achieve maximum level of psychosocial functioning Outcome: Not Met Problem: Pressure Injury, Risk of Goal: Absence of pressure injury Outcome: Not Met Problem: Falls, Risk of Goal: Absence of falls Outcome: Not Met Goal: Absence of physical injury Outcome: Not Met [id number] Note* Op Note - Raúl Hudson MD - 06/05/2024 4:19 PM EDT OPERATIVE REPORT DATE OF SURGERY: 06.05.24 SURGEON: Raúl Hudson MD ELECTRIC ACCOUNTING MACHINE OPERATOR(S): none PREOPERATIVE DIAGNOSIS: Acute appendicitis. POSTOPERATIVE DIAGNOSIS: Acute appendicitis. OPERATION: Laparoscopic appendectomy. ANESTHESIA: General endotracheal anesthesia. ESTIMATED BLOOD LOSS: 5 mL IV FLUIDS: See anes mL crystalloid URINE OUTPUT: 100 mL SPECIMENS: Appendix to Pathology. DRAINS: none. FINDINGS: Acute appendicitis, nonperforated Grossly normal abdomen, otherwise. INDICATIONS FOR SURGERY: See h/p DESCRIPTION OF PROCEDURE: The patient was taken to the operating room, placed in the supine position on the OR table. Sequential compression stockings were placed on both legs. General anesthesia andperioperative antibiotics were administered. A Lyon catheter was inserted using sterile technique.The patient's abdomen was prepped with ChloraPrep and draped to create a sterile field. A time-out was done. All incisions were first injected with local anesthetic. Small infraumbilical midline incision was made and using electrocautery dissected down to the level of the anterior fascia. Anterior f ascia was incised abdomen was bluntly entered without injury to underlying viscus. Ballooned 12mm trocar was then secured to the fascia with 0- Vicryl stay sutures. Pneumoperitoneum was established. An additional suprapubic 5 mm trocar was inserted as well as a 5mm left lower quadrant trocar lateral to the inferior epigastrics. The greater omentum and small bowel were reflected to the upper abdomen. The terminal ileum was followed to its intersection with the cecum, where the appendix came intoview. The appendix was elevated with a grasper and mobilized. A [place] dissector was used to create a window at the base of the mesoappendix. An Hundred 45 stapler with a blue cartridge was used todivide the base of the appendix. Mesoappendix was controlled using laparoscopic LigaSure. There wasgood hemostasis of the staple line. The appendix was placed in a retrieval bag and removed through the umbilical port site. The right lower quadrant was inspected. Cecal staple lines was intact. There were no apparent injuries to the adjacent anatomy. Fluid from the pelvis was suctioned. The omentum and small bowel were returned to the lower abdomen. The trocars were removed without any bleeding noted from the inside abdominal wall. After confirming no problems with a 360 degree survey of the abdomen, the camera was withdrawn. The Sally was removed, evacuating the pneumoperitoneum. The fascia at the umbilicus was closed using interrupted 0 Vicryl sutures. The fascia was palpated to confirmno residual defect. The skin at each incision was closed with 4-0monocryl and glue. Additional local anesthetic was injected at each trocar site. All instrument and sponge counts were correct at the end of the case. The patient tolerated the procedure well. The Lyon catheter was removed. She was aw akened, extubated and taken to PACU in good condition. [id number] NoteS PROGRESS NOTE -- [facility] Patient Name: Reema Shah : 1975 MR #: [id number] Admit Date: 06/04/2024 Physicians: Jyoti Gupta MD (Family); No ref. provider found (Referring) Reema Shah is a 48 y.o. female patient of Jeanie Ayala MD with history of Thrombocytopenia, anxiety, CKD, CHF, depression, epilepsy, fatty liver, gastritis, MR, MELQUIADES, stroke, tremor presented to [facility] with abdominal pain. Acute appendicitis Admit to med surg floor Consult surgery team NPO Gentle IV hydration IV flagyl cipro OR in am Pain control: all oral opioids cause severe NV Tolerates IM morphine, Epilepsy Myoclonic jerks holding primidone Will continue Keppra 500 mg iv bid and Depakote ER 500mg iv BID CKD stage IIIa creatinine baseline between 1.3-1.5. Continue to monitor. Chronic diastolic congestive heart failure Clinically compensated EF 59% per [place] perfusion study 2018 Continue metoprolol. Hypertension Dyslipidemia Continue amlodipine and hydrochlorothiazide and statin Depression and anxiety On Zoloft and taking benzodiazepines. Will continue post op Gout and hyperuricemia On allopurinol. Will hold Hypothyroidism Holding synthroid Last TSH was 3.3 on 03/05/24 Obstructive sleep apnea On CPAP Fatty liver Continue to monitor GERD Protonix Residence prior to admission: house or apartment Was patient transferred from outlying hospital or ED no Quality Measures DVT Prophylaxis: SCds Lyon Catheter: absent Medication Reconciliation: Verified Admitted with these risk variables:Acute Kidney Injury. Please see assessment and plan for further details. Estimated Date of Discharge less than 2 midnights Code Status Full Code; code status verified on 06/04/2024 with patient (capacity intact) Subjective: I am still in pain and I am hungry, I hope they do the surgery soon. Review Of Systems All relevant systems have been reviewed and are negative except as noted in HPI or below Physical Examination BP (!) 169/92 Pulse 67 Temp 98.1 degrees F (36.7 degrees C) (Oral) Resp 16 Ht 4' 7 Wt 71.2 kg (157 lb) SpO2 95% BMI 36.49 kg/m General Appearance: alert; acutely ill appearing; in moderate acute distress HEENT: Head- normocephalic; Eyes- EOMI, sclera anicteric; Throat- mucous membranes moist Cardiovascular: regular rate and rhythm; normal S1, S2; no murmurs, rubs, clicks or gallops; peripheral edema 1+ Respiratory: lungs clear to auscultation; without wheezes, rales or rhonchi; on room air Abdomen: Firm move right lower quadrant tender rigidity and rebound slightly distended Neurological: oriented x 3; normal speech; no focal findings or movement disorder noted Musculoskeletal: no significant deformity or tenderness to palpation Skin: normal coloration Psych: normal mood and affect AUTHENTICATED BY RUTH BLANCA ON 06/05/2024 14:21:[address] [place] [address] 06-05-2024 Note* Plan of Care - Litzy Ma RN - 06/05/2024 1:58 PM EDT Plan of care reviewed and interventions continued. Plan for surgery today with . Pain and anxiety management with Ativan and Morphine. Fall risk precautions used. Problem: Actual or potential alteration in health Goal: Absence of healthcare acquired conditions Outcome: Partially Met Goal: Knowledge of Interdisciplinary Plan of Care Outcome: Partially Met Goal: Knowledge of Enviroment Outcome: Partially Met Problem: Pain Goal: Reduced pain sensation Outcome: Partially Met Goal: Control of acute pain to acceptable level Outcome: Partially Met Goal: Able to cope with pain Outcome: Partially Met Goal: Able to achieve maximum level of physical functioning Outcome: Partially Met Goal: Able to achieve maximum level of psychosocial functioning Outcome: Partially Met Problem: Pressure Injury, Risk of Goal: Absence of pressure injury Outcome: Partially Met Problem: Falls, Risk of Goal: Absence of falls Outcome: Partially Met Goal: Absence of physical injury Outcome: Partially Met [id number] Consult note* Destiny Ayers RN - 06/05/2024 11:44 AM EDT Associated Order(s): IP CONSULT TO CARE MANAGEMENT Care Management Consult Note Date: 06/05/2024 Time: 12:18 PM Patient Name: Reema Shah Date of : 1975 Reason for Consult: Discharge Plan: Plan A: Intermediate Care facility Plan A : Post Acute Patient Choice 1: [facility] Discharging Transportation Plan: Discharge Plan Status: pend medical readiness Assessment and Background Information: Per chart, pt is from [facility] and [place], CME, updated. Pt states just transferred from [place] to [place] 'a couple days ago because I didn't like the director government at [place].' Ptstates plan is return to [place] but would like a SNF list to take with her at sc to see if thereis somewhere else she could transfer to. Pt has 30 bedhold days per [place]. Pt will need transport to return to [place] at sc. Pt states was at [facility] in the past. Pt has father and sisterlisted as contacts and would like to keep them on chart, no LW/HPOA on file. CM to follow. 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 Care Facility Name: [facility] Prior to Admission Home Care Services: No Patient expects to be discharged to:: [place] Does the patient need discharge transport arranged?: Yes Has discharge transport been arranged?: No Current Home Equipment: Wheeled walker, Wheel chair, Other (Comment) (thru SNF) Holistic Assessment Medication adherence problem:: No History of falls in last 6 months:: No Family aware of the patient's advance care planning wishes:: Yes Do you have any cultural/spiritual connections or beliefs that would impact how we deliver your care?: No Chronic pain:: (!) Yes Location of chronic pain:: right side Chronic pain timing:: Constant [id number] Consult note* Destiny Ayers RN - 06/05/2024 11:44 AM EDT Associated Order(s): IP CONSULT TO CARE MANAGEMENT Care Management Consult Note Date: 06/05/2024 Time: 12:18 PM Patient Name: Reema Shah Date of : 1975 Reason for Consult: Discharge Plan: Plan A: Intermediate Care facility Plan A : Post Acute Patient Choice 1: [facility] Discharging Transportation Plan: Discharge Plan Status: pend medical readiness Assessment and Background Information: Per chart, pt is from [facility] and [place], CME, updated. Pt states just transferred from [place] to [place] 'a couple days ago because I didn't like the director government at [place].' Ptstates plan is return to [place] but would like a SNF list to take with her at sc to see if thereis somewhere else she could transfer to. Pt has 30 bedhold days per [place]. Pt will need transport to return to [place] at sc. Pt states was at [facility] in the past. Pt has father and sisterlisted as contacts and would like to keep them on chart, no LW/HPOA on file. CM to follow. 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 Care Facility Name: [facility] Prior to Admission Home Care Services: No Patient expects to be discharged to:: [place] Does the patient need discharge transport arranged?: Yes Has discharge transport been arranged?: No Current Home Equipment: Wheeled walker, Wheel chair, Other (Comment) (thru SNF) Holistic Assessment Medication adherence problem:: No History of falls in last 6 months:: No Family aware of the patient's advance care planning wishes:: Yes Do you have any cultural/spiritual connections or beliefs that would impact how we deliver your care?: No Chronic pain:: (!) Yes Location of chronic pain:: right side Chronic pain timing:: Constant * Chantal Richards CNP - 06/04/2024 11:52 PM EDT [facility] SURGICAL HISTORY & PHYSICAL/CONSULTATION NOTE SURGICAL PROBLEM Acute appendicitis ASSESSMENT & PLAN/ACTIVE MEDICAL PROBLEMS: Acute appendicitis- Ct imaging with acute appendicitis with fecalith WBC 6, afebrile, NPO Consent obtained for lap appy tomorrow with Dr. Hudson INCIDENTAL FINDINGS: N/A. CHIEF COMPLAINT: Abdominal pain HISTORY OF PRESENT ILLNESS / INJURY (HPI): Adore is a 48 year old female with past medical history noted below. She arrives to the ED for evaluation of severe right lower quadrant pain and vomiting. She was found to have acute appendicitis and general surgery was consulted for evaluation.She is HDS. Pain on exam rhonda to RLQ. She denies AC/APat home. PAST MEDICAL HISTORY (PMH): Past Medical History: Diagnosis Date Acquired thrombocytopenia ([facility]) [facility]/Lopez Shaikh Acute kidney injury ([facility]) 05/22/2018 [facility]/Jonatan Chiu DO Anxiety Arm abrasion 06/19/2019 INFO GAINED FROM: /CONFUCIANIST ED VISIT NOTE --- AC GAO MD Calcaneal spur of right foot 2016 Documented on x-ray CKD (chronic kidney disease) Congestive heart failure (CHF) ([facility]) [facility]/Lopez Shaikh Contusion, hip 06/19/2019 INFO GAINED FROM: /CONFUCIANIST ED VISIT NOTE --- AC GAO MD Depression Epilepsy ([facility]) 08/06/2011 [facility]- Dr. Chopra Epilepsy ([facility]) 1994 Facet degeneration of lumbar region 10/14/2018 [facility]/Jono ALEXIS, Saulius Mild facet degenerative changes seen in the lower lumbar spine Fatty liver [facility]/Joe Mendieta MD Mild fibrofatty changes of the liver Fluid collection (edema) in the arms, legs, hands and feet 03/09/2018 Dr valentina Chopra Gastritis determined by endoscopy 12/29/2016 Dr. GonzalezXedccp-Iuxfpiflj-ferxqezkxlwvp nonbleeding with biopsy 1 para 1 Hepatic steatosis [facility]/Heidy Jara MD Mild Hiatal hernia 12/29/[address] Lobo grade 4 Hypercholesterolemia [facility]/Jonatan Chiu DO Hypertension 2000 2000-present Insomnia [facility]/Lopez Shaikh Kidney stone [facility]/Lopez Shaikh Laceration of head 06/19/2019 INFO GAINED FROM: /CONFUCIANIST ED VISIT NOTE --- MENG ALEXIS,AC Escobar Lung nodule 12/15/2017 0.5 cm pleural based nodule in right middle lobe. Mild linear atelectasis Mitral valve prolapse [facility]/Lopez Shaikh Motor seizure (HCC) 03/16/2019 INFO GAINED FROM: /CONFUCIANIST ED VISIT --- BLAKE STEELE,CAREN Rectus diastasis [facility]/Heidy Jara MD Present with small wide necked perumbical ventral containing fat. Second degree burn of foot 04/23/2018 Right Foot - [facility] Sleep apnea Stroke (HCC) 2000 mild Tremor Past Surgical History: Procedure Laterality Date Conner pH capsule placement 02/01/2017 Dr. Lobo BREAST REDUCTION 1999 [facility]-nonperforating gastritis ESOPHAGEAL MANOMETRY 02/01/2017 HERNIA REPAIR 06/11/2017 Dr Richards INTRAUTERINE DEVICE INSERTION 02/15/2015 Dr. Pennie Meyers OBGYN Laparoscopic LINX sphincter augmentation with cruroplasty 06/11/2017 Dr. Lobo WISDOM TOOTH EXTRACTION Social History Tobacco Use Smoking status: Former Types: Cigarettes Smokeless tobacco: Never Vaping Use Vaping status: Never Used Substance Use Topics Alcohol use: No Drug use: No Family History Problem Relation Age of Onset Dementia Mother Hypertension Mother Heart disease Mother Diabetes Mother Type 2 Stroke Mother Heart failure Mother Seizures Mother Parkinson's Mother Thyroid disease Father Hypertension Father Hypothyroidism Father GI problems Father Seizures Sister Hypertension Sister Heart disease Sister Hypothyroidism Sister Anxiety Sister Sickle cell anemia Other No Known Problems Brother Asthma Sister Hypertension Sister MEDICATIONS: No current facility-administered medications on file prior to encounter. Current Outpatient Medications on File Prior to Encounter Medication Sig Dispense Refill acetaminophen (TYLENOL) 325 MG tablet Take 2 (two) tablets (650 mg total) by mouth every 8 (eight) hours as needed (mild pain) . albuterol (PROVENTIL) 2.5 mg /3 mL (0.083 %) nebulizer solution Take 3 mL (2.5 mg total) by nebulization every 6 (six) hours as needed for shortness of breath . allopurinoL (ZYLOPRIM) 300 MG tablet Take 1 (one) tablet (300 mg total) by mouth every morning . artificial tears,hypromellose, (ISOPTO TEARS) 0.5 % ophthalmic solution Administer 1 (one) drop to both eyes every hour as needed . artificial tears,hypromellose, (ISOPTO TEARS) 0.5 % ophthalmic solution Administer 1 (one) drop to both eyes at bedtime . atorvastatin (LIPITOR) 20 MG tablet Take 1 (one) tablet (20 mg total) by mouth at bedtime . benzocaine-menthoL 20-0.26 % Gel by Gums route every 6 (six) hours as needed (sore gums) Apply to gums as needed . benzonatate (TESSALON) 200 MG capsule Take 1 (one) capsule (200 mg total) by mouth every 8 (eight) hours as needed for cough . bisacodyL (DULCOLAX) 10 mg suppository Insert 1 (one) suppository (10 mg total) into the rectum daily as needed for constipation . busPIRone (BUSPAR) 10 MG tablet Take 1 (one) tablet (10 mg total) by mouth 3 (three) times a day . calcium carbonate 215 mg calcium (500 mg) Chew Chew and Swallow 1 (one) tablet (500 mg total) dailyas needed (heartburn, indigestion) . calcium carbonate-vitamin D3 600 mg-10 mcg (400 unit) per tablet Take 1 (one) tablet by mouth 2 (two) times a day . cyanocobalamin (B-12) 1000 MCG tablet Take 1 (one) tablet (1,000 mcg total) by mouth daily . divalproex (DEPAKOTE) 500 MG delayed release (DR) tablet Take 1 (one) tablet (500 mg total) by mouth 2 (two) times a day . famotidine (PEPCID) 10 MG tablet Take 2 (two) tablets (20 mg total) by mouth daily . guaiFENesin (HUMIBID 3) 400 mg Tab Take 1 (one) tablet (400 mg total) by mouth every 6 (six) hours as needed (allergies) . levETIRAcetam (KEPPRA) 500 MG tablet Take 1 (one) tablet (500 mg total) by mouth 2 (two) times a day . levothyroxine (SYNTHROID, LEVOTHROID) 25 MCG tablet Take 1 (one) tablet (25 mcg total) by mouth every morning . lidocaine (LIDODERM) 5 % patch Place 1 (one) patch on the skin every morning To back Remove & Discard patch within 12 hours or as directed by MD . lisinopriL (PRINIVIL,ZESTRIL) 20 MG tablet Take 1 (one) tablet (20 mg total) by mouth every morning. loratadine (CLARITIN) 10 mg tablet Take 1 (one) tablet (10 mg total) by mouth at bedtime . LORazepam (ATIVAN) 2 MG tablet Take 1 (one) tablet (2 mg total) by mouth at bedtime For anxiety andepilepsy . magnesium hydroxide 400 mg/5 mL Susp Take 30 mL (2,400 mg total) by mouth daily as needed Reasons: constipation. magnesium oxide (MAG-OX) 400 mg (241.3 mg magnesium) tablet Take 1 (one) tablet (400 mg total) by mouth every morning . meclizine (ANTIVERT) 50 MG tablet Take 1 (one) tablet (50 mg total) by mouth every 8 (eight) hours as needed for dizziness . melatonin 10 mg Tab Take 10 mg by mouth nightly as needed (insomnia) . metoprolol tartrate (LOPRESSOR) 25 MG tablet Take 1 (one) tablet (25 mg total) by mouth 2 (two) times a day . potassium chloride SA (K-DUR,KLOR-CON) 20 MEQ tablet Take 1 (one) tablet (20 mEq total) by mouth 2 (two) times a day . primidone (MYSOLINE) 50 MG tablet Take 4 (four) tablets (200 mg total) by mouth every 12 (twelve) hours . sertraline (ZOLOFT) 100 MG tablet Take 1 (one) tablet (100 mg total) by mouth 2 (two) times a day . sodium phosphates (FLEETS ADULT) 19-7 gram/118 mL Enem Insert 1 (one) each into the rectum daily asneeded Reasons: constipation. amLODIPine (NORVASC) 10 MG tablet Take 1 (one) tablet (10 mg total) by mouth daily for 5 days . 5 tablet 0 atorvastatin (LIPITOR) 20 MG tablet Take 1 (one) tablet (20 mg total) by mouth at bedtime for 5 days . 5 tablet 0 busPIRone (BUSPAR) 10 MG tablet Take 1 (one) tablet (10 mg total) by mouth 3 (three) times a day for 5 days . 15 tablet 0 diclofenac sodium 1 % Gel Diclofenac Sodium 1 % External Gel apply sparingly to affected aea twice daily Quantity: 1 Refills: 1 Ordered: 04-Mar-2022 Jeanie Ayala MD Start : 04-Mar-2022 Active levETIRAcetam (Keppra) 750 MG tablet Take 1 (one) tablet (750 mg total) by mouth 2 (two) times a day . 60 tablet 0 LORazepam (ATIVAN) 2 MG tablet Take 1 (one) tablet (2 mg total) by mouth daily as needed (for anxiety or epilepsy) . ALLERGIES: Allergies Allergen Reactions Codeine Other (See Comments) Vomiting Dilaudid [Hydromorphone] Erythromycin Unknown Morphine Sulfate Other (See Comments) Vomiting Neurontin [Gabapentin] GI Intolerance Other Phenergan [Promethazine] Other (See Comments) Sick Phenytoin Tramadol Vicodin [Hydrocodone-Acetaminophen] Other (See Comments) Vomiting Zofran [Ondansetron Hcl] Other (See Comments) Vomiting Acetaminophen Rash Not listed as allergy per F medication list Penicillins Rash REVIEW OF SYSTEMS: COVID19 Screen: Negative for fever, cough, SOB, exposure. Constitutional Symptoms: Negative for unexplained falls, weight loss Eyes: Negative for eye pain or vision changes Ears, Nose, Mouth, Throat: Negative for rhinorrhea, nasal pain, dysphagia, hoarseness Cardiovascular: Negative for chest pain, orthopnea, edema Respiratory: Negative for cough, shortness of breath Gastrointestinal: Positive for abdominal pain RLQ, nausea and vomiting Genitourinary: Negative for dysuria, hematuria Musculoskeletal: Negative for pain, joint edema Skin/Breast: Negative for rash, itching, lesions Neurological: Negative for paresthesia, paralysis, loss of bowel or bladder control, loss of consciousness Psychiatric: Negative for depression, anxiety, or suicidal ideations Endocrine: Negative for heat/cold intolerance, polydipsia, polyphagia, polyuria Hematologic/Lymphatic: Negative for anticoagulant use, antiplatelet use, family hx of clotting or bleeding disorders Allergic/Immunologic: Allergies reviewed, no use of immunosuppressants or active chemotherapy Other than the above items, the remainder of a complete review of systems is otherwise negative. PHYSICAL EXAM: BP (!) 173/90 Pulse 71 Temp 98.8 F (37.1 C) Resp 18 Ht 4' 7 Wt 71.2 kg (157 lb) SpO2 94% BMI 36.49 kg/m Body mass index is 36.49 kg/m . GENERAL: Appears age appropriate. No acute distress. NEUROLOGICAL: Alert and oriented X 3. Follows commands with extremities x4, equal strength. No focal neurologic deficits noted. GCS = 15 CARDIOVASCULAR: Regular rate and rhythm. No peripheral edema noted. 2+ pulses radial/DP/PT bilaterally. RESPIRATORY: Respiratory effort unlabored without use of accessory muscles. ABDOMINAL: Rounded, soft, tender, nondistended, with voluntary guarding MUSCULOSKELETAL: Extremities atraumatic without gross deformity x4. SKIN: Skin warm and dry. No rashes or lesions. IMAGING STUDIES: I have reviewed the following: CT images LABORATORY STUDIES: Lab Results Component Value Date WBC 6.01 06/04/2024 HGB 14.7 06/04/2024 HCT 43.5 06/04/2024 MCV 92.6 06/04/2024 EXTMCV 90.6 03/22/2019 PLT 84 (L) 06/04/2024 RBC 4.70 06/04/2024 Lab Results Component Value Date GLUCOSE 125 (H) 06/04/2024 CALCIUM 9.1 06/04/2024 NA 140 06/04/2024 K 5.2 (H) 06/04/2024 CL 108 06/04/2024 BUN 21 06/04/2024 CREATININE 1.45 (H) 06/04/2024 Lab Results Component Value Date ALT 20 06/04/2024 AST 43 (H) 06/04/2024 ALKPHOS 84 06/04/2024 BILITOT 0.3 06/04/2024 Associated attestation - Raúl Hudson MD - 06/05/2024 10:00 AM EDT I agree with the Advanced Practice Provider note with the same day of service. The patient was seenand examined by me, the attending surgeon, on rounds on the date of service listed above. I have reviewed the Advanced Practice Provider note with the relevant labs, studies, and field technical support consultant notes. I have reviewed and agree with the documented history, exam, and plan of care. The below note includesmy discussion, exams, and review of relevant labs and imaging. Agree with below note 48-year-old female with below past medical history complaining of right lower quadrant abdominal pain, nausea and vomiting. CT abdomen pelvis was obtained by the emergency room staff consistent with acute appendicitis. General surgery was consulted. Blood pressure (!) 175/95, pulse 71, temperature 98.1 F (36.7 C), temperature source Oral, resp. rate 16, height 4' 7, weight 71.2 kg (157 lb), SpO2 96%, not currently . General awake alert no acute distress Respiratory nonlabored CV nontachycardic Abdomen is soft, obese, tender to palpation in the right lower quadrant with guarding Lab work reviewed CT imaging reviewed Plan Due to fecalith present at the appendiceal orifice I would recommend proceeding with laparoscopic possible open appendectomy Risk possible complications Maintain n.p.o., IV fluids continue IV antibiotics Remainder of care as below documented in this [id number] Consult note* Chantal Richards, [facility] - 06/04/2024 11:52 PM EDT [facility] SURGICAL HISTORY & PHYSICAL/CONSULTATION NOTE SURGICAL PROBLEM Acute appendicitis ASSESSMENT & PLAN/ACTIVE MEDICAL PROBLEMS: Acute appendicitis- Ct imaging with acute appendicitis with fecalith WBC 6, afebrile, NPO Consent obtained for lap appy tomorrow with Dr. Hudson INCIDENTAL FINDINGS: N/A. CHIEF COMPLAINT: Abdominal pain HISTORY OF PRESENT ILLNESS / INJURY (HPI): Adore is a 48 year old female with past medical history noted below. She arrives to the ED for evaluation of severe right lower quadrant pain and vomiting. She was found to have acute appendicitis and general surgery was consulted for evaluation.She is HDS. Pain on exam rhonda to RLQ. She denies AC/APat home. PAST MEDICAL HISTORY (PMH): Past Medical History: Diagnosis Date Acquired thrombocytopenia ([facility]) [facility]Lopez [facility] Acute kidney injury (HCC) 05/22/2018 [facility]/Jonatan Chiu DO Anxiety Arm abrasion 06/19/2019 INFO GAINED FROM: /CONFUCIANIST ED VISIT NOTE --- AC GAO MD Calcaneal spur of right foot 2016 Documented on x-ray CKD (chronic kidney disease) Congestive heart failure (CHF) ([facility]) [facility] Shaikh Contusion, hip 06/19/2019 INFO GAINED FROM: /CONFUCIANIST ED VISIT NOTE --- AC GAO MD Depression Epilepsy ([facility]) 08/06/2011 [facility]- Dr. Chopra Epilepsy ([facility]) 1993 Facet degeneration of lumbar region 10/14/2018 [facility]/Jono ALEXIS, Moi Mild facet degenerative changes seen in the lower lumbar spine Fatty liver [facility]/Joe Mendieta MD Mild fibrofatty changes of the liver Fluid collection (edema) in the arms, legs, hands and feet 03/09/2018 Dr valentina Chopra Gastritis determined by endoscopy 12/29/2016 Dr. LeeKxfidu-Aqqzlnxrw-rhhntmbefsual nonbleeding with biopsy 1 para 1 Hepatic steatosis [facility]/Heidy Jara MD Mild Hiatal hernia 12/29/[address] Lobo grade 4 Hypercholesterolemia [facility]/Jonatan Chiu DO Hypertension 2000 2000-present Insomnia [facility] Shaikh Kidney stone [facility] Laceration of head 06/19/2019 INFO GAINED FROM: /CONFUCIANIST ED VISIT NOTE --- AC GAO MD Lung nodule 12/15/2017 0.5 cm pleural based nodule in right middle lobe. Mild linear atelectasis Mitral valve prolapse [facility] Motor seizure ([facility]) 03/16/2019 INFO GAINED FROM: /CONFUCIANIST ED VISIT --- BLAKE STEELECAREN Rectus diastasis [facility]/Heidy Jara MD Present with small wide necked perumbical ventral containing fat. Second degree burn of foot 04/23/2018 Right Foot - [facility] Sleep apnea Stroke ([facility]) 2000 mild Tremor Past Surgical History: Procedure Laterality Date Conner pH capsule placement 02/01/2017 Dr. Lobo BREAST REDUCTION 2000 bilateral EGD 12/29/2016 Dr[facility] [place]-grade 4 hiatal hernia-nonperforating gastritis ESOPHAGEAL MANOMETRY 02/01/2017 HERNIA REPAIR 06/11/2017 Dr Richards INTRAUTERINE DEVICE INSERTION 02/15/2015 Dr. Pennie Meyers OBGYN Laparoscopic LINX sphincter augmentation with cruroplasty 06/11/2017 Dr. Lobo WISDOM TOOTH EXTRACTION Social History Tobacco Use Smoking status: Former Types: Cigarettes Smokeless tobacco: Never Vaping Use Vaping status: Never Used Substance Use Topics Alcohol use: No Drug use: No Family History Problem Relation Age of Onset Dementia Mother Hypertension Mother Heart disease Mother Diabetes Mother Type 2 Stroke Mother Heart failure Mother Seizures Mother Parkinson's Mother Thyroid disease Father Hypertension Father Hypothyroidism Father GI problems Father Seizures Sister Hypertension Sister Heart disease Sister Hypothyroidism Sister Anxiety Sister Sickle cell anemia Other No Known Problems Brother Asthma Sister Hypertension Sister MEDICATIONS: No current facility-administered medications on file prior to encounter. Current Outpatient Medications on File Prior to Encounter Medication Sig Dispense Refill acetaminophen (TYLENOL) 325 MG tablet Take 2 (two) tablets (650 mg total) by mouth every 8 (eight) hours as needed (mild pain) . albuterol (PROVENTIL) 2.5 mg /3 mL (0.083 %) nebulizer solution Take 3 mL (2.5 mg total) by nebulization every 6 (six) hours as needed for shortness of breath . allopurinoL (ZYLOPRIM) 300 MG tablet Take 1 (one) tablet (300 mg total) by mouth every morning . artificial tears,hypromellose, (ISOPTO TEARS) 0.5 % ophthalmic solution Administer 1 (one) drop to both eyes every hour as needed . artificial tears,hypromellose, (ISOPTO TEARS) 0.5 % ophthalmic solution Administer 1 (one) drop to both eyes at bedtime . atorvastatin (LIPITOR) 20 MG tablet Take 1 (one) tablet (20 mg total) by mouth at bedtime . benzocaine-menthoL 20-0.26 % Gel by Gums route every 6 (six) hours as needed (sore gums) Apply to gums as needed . benzonatate (TESSALON) 200 MG capsule Take 1 (one) capsule (200 mg total) by mouth every 8 (eight) hours as needed for cough . bisacodyL (DULCOLAX) 10 mg suppository Insert 1 (one) suppository (10 mg total) into the rectum daily as needed for constipation . busPIRone (BUSPAR) 10 MG tablet Take 1 (one) tablet (10 mg total) by mouth 3 (three) times a day . calcium carbonate 215 mg calcium (500 mg) Chew Chew and Swallow 1 (one) tablet (500 mg total) dailyas needed (heartburn, indigestion) . calcium carbonate-vitamin D3 600 mg-10 mcg (400 unit) per tablet Take 1 (one) tablet by mouth 2 (two) times a day . cyanocobalamin (B-12) 1000 MCG tablet Take 1 (one) tablet (1,000 mcg total) by mouth daily . divalproex (DEPAKOTE) 500 MG delayed release (DR) tablet Take 1 (one) tablet (500 mg total) by mouth 2 (two) times a day . famotidine (PEPCID) 10 MG tablet Take 2 (two) tablets (20 mg total) by mouth daily . guaiFENesin (HUMIBID 3) 400 mg Tab Take 1 (one) tablet (400 mg total) by mouth every 6 (six) hours as needed (allergies) . levETIRAcetam (KEPPRA) 500 MG tablet Take 1 (one) tablet (500 mg total) by mouth 2 (two) times a day . levothyroxine (SYNTHROID, LEVOTHROID) 25 MCG tablet Take 1 (one) tablet (25 mcg total) by mouth every morning . lidocaine (LIDODERM) 5 % patch Place 1 (one) patch on the skin every morning To back Remove & Discard patch within 12 hours or as directed by MD . lisinopriL (PRINIVIL,ZESTRIL) 20 MG tablet Take 1 (one) tablet (20 mg total) by mouth every morning. loratadine (CLARITIN) 10 mg tablet Take 1 (one) tablet (10 mg total) by mouth at bedtime . LORazepam (ATIVAN) 2 MG tablet Take 1 (one) tablet (2 mg total) by mouth at bedtime For anxiety andepilepsy . magnesium hydroxide 400 mg/5 mL Susp Take 30 mL (2,400 mg total) by mouth daily as needed Reasons: constipation. magnesium oxide (MAG-OX) 400 mg (241.3 mg magnesium) tablet Take 1 (one) tablet (400 mg total) by mouth every morning . meclizine (ANTIVERT) 50 MG tablet Take 1 (one) tablet (50 mg total) by mouth every 8 (eight) hours as needed for dizziness . melatonin 10 mg Tab Take 10 mg by mouth nightly as needed (insomnia) . metoprolol tartrate (LOPRESSOR) 25 MG tablet Take 1 (one) tablet (25 mg total) by mouth 2 (two) times a day . potassium chloride SA (K-DUR,KLOR-CON) 20 MEQ tablet Take 1 (one) tablet (20 mEq total) by mouth 2 (two) times a day . primidone (MYSOLINE) 50 MG tablet Take 4 (four) tablets (200 mg total) by mouth every 12 (twelve) hours . sertraline (ZOLOFT) 100 MG tablet Take 1 (one) tablet (100 mg total) by mouth 2 (two) times a day . sodium phosphates (FLEETS ADULT) 19-7 gram/118 mL Enem Insert 1 (one) each into the rectum daily asneeded Reasons: constipation. amLODIPine (NORVASC) 10 MG tablet Take 1 (one) tablet (10 mg total) by mouth daily for 5 days . 5 tablet 0 atorvastatin (LIPITOR) 20 MG tablet Take 1 (one) tablet (20 mg total) by mouth at bedtime for 5 days . 5 tablet 0 busPIRone (BUSPAR) 10 MG tablet Take 1 (one) tablet (10 mg total) by mouth 3 (three) times a day for 5 days . 15 tablet 0 diclofenac sodium 1 % Gel Diclofenac Sodium 1 % External Gel apply sparingly to affected aea twice daily Quantity: 1 Refills: 1 Ordered: 04-Mar-2022 Jeanie Ayala MD Start : 04-Mar-2022 Active levETIRAcetam (Keppra) 750 MG tablet Take 1 (one) tablet (750 mg total) by mouth 2 (two) times a day . 60 tablet 0 LORazepam (ATIVAN) 2 MG tablet Take 1 (one) tablet (2 mg total) by mouth daily as needed (for anxiety or epilepsy) . ALLERGIES: Allergies Allergen Reactions Codeine Other (See Comments) Vomiting Dilaudid [Hydromorphone] Erythromycin Unknown Morphine Sulfate Other (See Comments) Vomiting Neurontin [Gabapentin] GI Intolerance Other Phenergan [Promethazine] Other (See Comments) Sick Phenytoin Tramadol Vicodin [Hydrocodone-Acetaminophen] Other (See Comments) Vomiting Zofran [Ondansetron Hcl] Other (See Comments) Vomiting Acetaminophen Rash Not listed as allergy per F medication list Penicillins Rash REVIEW OF SYSTEMS: COVID19 Screen: Negative for fever, cough, SOB, exposure. Constitutional Symptoms: Negative for unexplained falls, weight loss Eyes: Negative for eye pain or vision changes Ears, Nose, Mouth, Throat: Negative for rhinorrhea, nasal pain, dysphagia, hoarseness Cardiovascular: Negative for chest pain, orthopnea, edema Respiratory: Negative for cough, shortness of breath Gastrointestinal: Positive for abdominal pain RLQ, nausea and vomiting Genitourinary: Negative for dysuria, hematuria Musculoskeletal: Negative for pain, joint edema Skin/Breast: Negative for rash, itching, lesions Neurological: Negative for paresthesia, paralysis, loss of bowel or bladder control, loss of consciousness Psychiatric: Negative for depression, anxiety, or suicidal ideations Endocrine: Negative for heat/cold intolerance, polydipsia, polyphagia, polyuria Hematologic/Lymphatic: Negative for anticoagulant use, antiplatelet use, family hx of clotting or bleeding disorders Allergic/Immunologic: Allergies reviewed, no use of immunosuppressants or active chemotherapy Other than the above items, the remainder of a complete review of systems is otherwise negative. PHYSICAL EXAM: BP (!) 173/90 Pulse 71 Temp 98.8 F (37.1 C) Resp 18 Ht 4' 7 Wt 71.2 kg (157 lb) SpO2 94% BMI 36.49 kg/m Body mass index is 36.49 kg/m . GENERAL: Appears age appropriate. No acute distress. NEUROLOGICAL: Alert and oriented X 3. Follows commands with extremities x4, equal strength. No focal neurologic deficits noted. GCS = 15 CARDIOVASCULAR: Regular rate and rhythm. No peripheral edema noted. 2+ pulses radial/DP/PT bilaterally. RESPIRATORY: Respiratory effort unlabored without use of accessory muscles. ABDOMINAL: Rounded, soft, tender, nondistended, with voluntary guarding MUSCULOSKELETAL: Extremities atraumatic without gross deformity x4. SKIN: Skin warm and dry. No rashes or lesions. IMAGING STUDIES: I have reviewed the following: CT images LABORATORY STUDIES: Lab Results Component Value Date WBC 6.01 06/04/2024 HGB 14.7 06/04/2024 HCT 43.5 06/04/2024 MCV 92.6 06/04/2024 EXTMCV 90.6 03/22/2019 PLT 84 (L) 06/04/2024 RBC 4.70 06/04/2024 Lab Results Component Value Date GLUCOSE 125 (H) 06/04/2024 CALCIUM 9.1 06/04/2024 NA 140 06/04/2024 K 5.2 (H) 06/04/2024 CL 108 06/04/2024 BUN 21 06/04/2024 CREATININE 1.45 (H) 06/04/2024 Lab Results Component Value Date ALT 20 06/04/2024 AST 43 (H) 06/04/2024 ALKPHOS 84 06/04/2024 BILITOT 0.3 06/04/2024 Associated attestation - Raúl Hudson MD - 06/05/2024 10:00 AM EDT I agree with the Advanced Practice Provider note with the same day of service. The patient was seenand examined by me, the attending surgeon, on rounds on the date of service listed above. I have reviewed the Advanced Practice Provider note with the relevant labs, studies, and field technical support consultant notes. I have reviewed and agree with the documented history, exam, and plan of care. The below note includesmy discussion, exams, and review of relevant labs and imaging. Agree with below note 48-year-old female with below past medical history complaining of right lower quadrant abdominal pain, nausea and vomiting. CT abdomen pelvis was obtained by the emergency room staff consistent with acute appendicitis. General surgery was consulted. Blood pressure (!) 175/95, pulse 71, temperature 98.1 F (36.7 C), temperature source Oral, resp. rate 16, height 4' 7, weight 71.2 kg (157 lb), SpO2 96%, not currently . General awake alert no acute distress Respiratory nonlabored CV nontachycardic Abdomen is soft, obese, tender to palpation in the right lower quadrant with guarding Lab work reviewed CT imaging reviewed Plan Due to fecalith present at the appendiceal orifice I would recommend proceeding with laparoscopic possible open appendectomy Risk possible complications Maintain n.p.o., IV fluids continue IV antibiotics Remainder of care as below [facility] Work Phone: [phone] Emergency department Note* Sylvia Gaston RN - 06/04/2024 11:47 PM EDT Report given to room 2019 nurse [id number] Emergency department Note* Sylvia Gaston RN - 06/04/2024 11:47 PM EDT Report given to room 2019 nurse * Sylvia Gaston RN - 06/04/2024 11:16 PM EDT Report received from Royer LOPEZ * Maxine Vance RN - 06/04/2024 10:54 PM EDT Resting in bed. Eyes closed. Breathing even and unlabored. No distress noted. SRx2. Call light in reach. * Maxine Vance RN - 06/04/2024 9:46 PM EDT In bed resting. No distress. This nurse and Manju LOPEZ [facility]. Pure wick placed. Tolerated well.No other needs. SRx2. Call light in reach. * Bang Tovar DO - 06/04/2024 9:07 PM EDT EMERGENCY MEDICINE PROVIDER NOTE WELCOME TO [facility] NAME: Reema Shah AGE: 48 y.o. SEX: female : 1975 ENCOUNTER DATE: 06/05/24 CSN: [id number] PCP: Jyoti Gupta MD History of Presenting Illness/Medical Decision Making The history was obtained from the patient. Reema is a 48 y.o. female with a PMH as stated below, Primary Care Physician on file: Jyoti Gupta MD , who presents with a chief complaint ofAbdominal Pain. Pain located in RLQ, no radiating, sharp in nature. Denies history of similar symptoms. Denies urinary concerns including dysuria, hematuria. No diarrhea, melanotic stool, bright red blood. States she was passing gas this morning. Has not taken any medications for symptoms. Has someassociated nausea and vomiting, denies hemalatha hematemesis. Noticed streaks of red in vomit. Has tried smelling alcohol swabs for nausea, minimal improvement. Denies fever. No history of kidney stones.No syncopal episode. No CP or SOB. Denies hx of ovarian cysts. Currently not menstruating, menopausal. I saw and evaluated the patient and I have reviewed the chief complaint, as well as the nursing triage note(s), patient's past medical/surgical, family, and social history, previous ED visits, hospitalizations, and available pertinent outside records. ED Course as of 06/05/24 0332 Sun Jun 04, [id number] Potassium(!): 5.2 Slightly hemolyzed [ZW] 2228 NT Pro BNP(!) [ZW] 2228 Lipase(!) Low suspicion for acute pancreatitis. [ZW] 2228 Urinalysis(!) Urinalysis without evidence of blood, no bacteria, low suspicion for acute UTI, obstructive uropathy, or vascular nephropathy. [ZW] 2228 Creatinine(!): 1.45 CKD, renal function grossly at baseline upon chart comparison. [ZW] 2229 CBC w/ Diff(!) Thrombocytopenia. Known history upon chart comparison. Does not require emergent platelet transfusion at this time. [ZW] 2229 Troponin x 2 (Now and Repeat in 3 hours) Troponin negative, ACS unlikely. [ZW] ED Course User Index [ZW] Bang Tovar, DO Upon arrival vital signs stable. On exam she does appear to be uncomfortable, however nontoxic appearing, non-ill appearing. Lungs CTA bilaterally. Pulses intact and equal throughout all 4 extremities, low suspicion for an acute aortic dissection per my clinical gestalt. EKG obtained and reviewed, NSR, low suspicion for ACS, troponin negative. Urinalysis noninfectious without evidence of bacteria, no blood, no flank pain or CVA tenderness on examination, low suspicion for obstructive uropathy or vascular nephropathy. Negative sirs criteria, sepsis unlikely. Hemoglobin WNL at 14.7. Renal function at baseline. Borderline hyperkalemia, however slightly hemolyzed, no EKG changes. BNP slightly elevated given patient's known history of cardiac disease, does not appear to be clinically having a CHF exacerbation. Abdomen soft, nonperitoneal, however does have localized tenderness to be palpation in the right lower quadrant concerning for acute appendicitis given the CT imaging results, no absc ess or perforation, no free air, SBO, diverticulitis. Incidental finding does include large colonicBernard consistent with underlying constipation. Patient was made n.p.o., given pain control with 50 mcg IV fentanyl. Surgery team consulted, plan for admission for OR management and IV antibiotics per surgery team. The patient will require admission to the hospital for further evaluation and management. The patient was agreeable to this plan. The patient was treated symptomatically and remained stable throughout their ED course. The patient is appropriate for transfer to the floor and was signed out to the accepting hospital service to assume care. IMPRESSION: 1. Acute appendicitis, unspecified acute appendicitis type 2. Thrombocytopenia (HCC) 3. Elevated serum creatinine 4. History of epilepsy 5. Constipation, unspecified constipation type Discussed with: Hospitalist and Surgery ED Disposition ED Disposition Hospitalize Condition -- Comment Reason for inpatient over two midnights: .. Social Determinants of Health (SDOH) were considered that may have impacted treatment/disposition. she did NOT appear to have any significant issues identified. . (See below) Shared Decision Making (SDM) utilized by explaining the results and plan of care for disposition and next steps of care with the patient and/or family. Potential impact of patient's medical/surgical comorbidities were assessed and considered when determining the treatment course and outcome. Discussed options for treatment with or without prescription medications. Physical Exam Vital Signs Reviewed Patient Vitals for the past 24 hrs: BP Temp Temp src Pulse Resp SpO2 Height Weight 06/05/24 0109 (!) 179/102 98.4 F (36.9 C) Oral (!) 55 16 98 % -- -- 06/04/24 2309 -- -- -- -- 18 -- -- -- 06/04/24 2245 (!) 173/90 -- -- 71 18 94 % -- -- 06/04/24 2043 (!) 178/101 98.8 F (37.1 C) -- 78 18 97 % 4' 7 71.2 kg (157 lb) BP (!) 179/102 Pulse (!) 55 Temp 98.4 F (36.9 C) (Oral) Resp 16 Ht 4' 7 Wt 71.2 kg (157 lb) SpO2 98% BMI 36.49 kg/m Physical Exam Vitals and nursing note reviewed. Constitutional: General: She is awake. She is in acute distress. Appearance: Normal appearance. She is not ill-appearing, toxic-appearing or diaphoretic. HENT: Head: Normocephalic and atraumatic. Right Ear: External ear normal. Left Ear: External ear normal. Nose: Nose normal. Mouth/Throat: Lips: [place]. Mouth: Mucous membranes are moist. Eyes: General: Lids are normal. No scleral icterus. Conjunctiva/sclera: Conjunctivae normal. Neck: Trachea: Phonation normal. Comments: Supple without meningismus Cardiovascular: Rate and Rhythm: Normal rate and regular rhythm. Pulses: Normal pulses. Radial pulses are 2+ on the right side and 2+ on the left side. Dorsalis pedis pulses are 2+ on the right side and 2+ on the left side. Posterior tibial pulses are 2+ on the right side and 2+ on the left side. Heart sounds: Normal heart sounds. No murmur heard. Musculoskeletal: Cervical back: Normal range of motion and neck supple. No tenderness. Right lower leg: No edema. Left lower leg: No edema. Pulmonary: Effort: Pulmonary effort is normal. No tachypnea, accessory muscle usage, respiratory distress or retractions. Breath sounds: Normal breath sounds and air entry. No stridor. No decreased breath sounds, wheezing, rhonchi or rales. Abdominal: General: Abdomen is flat. Bowel sounds are normal. There is no distension. There are no signs of injury. Palpations: Abdomen is soft. There is no pulsatile mass. Tenderness: There is abdominal tenderness in the right lower quadrant. There is no right CVA tenderness, left CVA tenderness, guarding or rebound. Negative signs include Wall's sign, Rovsing's signand McBurney's sign. Skin: General: Skin is warm. Capillary Refill: Capillary refill takes less than 2 seconds. Neurological: General: No focal deficit present. Mental Status: She is alert and oriented to person, place, and time. Psychiatric: Attention and Perception: Attention and perception normal. Mood and Affect: Mood and affect normal. Speech: Speech normal. Behavior: Behavior normal. Behavior is cooperative. Wt Readings from Last 10 Encounters: 06/04/24 71.2 kg (157 lb) 04/07/24 74.8 kg (165 lb) 03/04/24 72.6 kg (160 lb) 03/03/24 72.6 kg (160 lb) 01/08/23 72.6 kg (160 lb) 05/06/22 72.6 kg (160 lb) 08/16/21 72.6 kg (160 lb) 05/15/21 74.8 kg (165 lb) 12/01/20 75 kg (165 lb 5.5 oz) 03/16/19 68.5 kg (151 lb) Clinical Results CT Abdomen Pelvis With IV Contrast Only Final Result Findings suggestive of acute appendicitis. No abnormal fluid collection is seen at this time. I discussed findings with Helga Roche NP in the ED at 11:02 p.m.. Workstation ID: [id number] Labs Reviewed COMPREHENSIVE METABOLIC PANEL - Abnormal; Notable for the following components: Result Value Potassium 5.2 (*) Bicarbonate 20 (*) Glucose 125 (*) Creatinine 1.45 (*) eGFR 44 (*) AST 43 (*) All other components within normal limits Narrative: [facility] Services has implemented the eGFR calculation approach that does not have a coefficient for race that conforms to the NKF-ASN Task Force Recommendations. LIPASE - Abnormal; Notable for the following components: Lipase 66 (*) All other components within normal limits URINALYSIS - Abnormal; Notable for the following components: Specific [place] 1.028 (*) pH, Urine 8.0 (*) All other components within normal limits Narrative: Microscopic examination is performed on all urinalysis samples and only positive findings are reported. The test for blood on the chemical analytic portion of urinalysis may also be positive due to hemoglobinuria and myoglobinuria and if red blood cells are present they are quantified by microscopic examination. NT PRO BNP - Abnormal; Notable for the following components: NT-Pro BNP 726 (*) All other components within normal limits Narrative: Pride Study Cut-offs Rule In: < /= 50 Years >450 pg/mL 51 Years - 75 Years >900 pg/mL 76 Years - 99 Years >1800 pg/mL Rule Out: All patients <300 pg/mL CBC WITH AUTO DIFFERENTIAL - Abnormal; Notable for the following components: Platelets 84 (*) All other components within normal limits MORPHOLOGY - Abnormal; Notable for the following components: Platelet Estimate Decreased (*) All other components within normal limits CBC AND DIFFERENTIAL Narrative: The following orders were created for panel order CBC w/ Diff. Procedure Abnormality Status --------- ------ CBC Auto Differential[[id number]] Abnormal Final result Manual Differential[[id number]] Final result CBC and Diff Morphology[[id number]] Abnormal Final result Please view results for these tests on the individual orders. TROPONIN CBC AND DIFFERENTIAL Narrative: The following orders were created for panel order CBC and Differential. Procedure Abnormality Status --------- ------ CBC Auto Differential[[id number]] Please view results for these tests on the individual orders. COMPREHENSIVE METABOLIC PANEL MANUAL DIFFERENTIAL CBC WITH AUTO DIFFERENTIAL Medications ciprofloxacin (CIPRO) IVPB 400 mg (premix) (400 mg Intravenous New Bag 06/05/24 0124) metroNIDAZOLE (FLAGYL) IVPB 500 mg (500 mg Intravenous New Bag 06/05/24 0258) sodium chloride (PF) (NS) flush 5 mL (has no administration in time range) And sodium chloride (PF) (NS) flush 5 mL ( Intravenous Canceled Entry 06/05/24 0145) And sodium chloride 0.9% (NS) (has no administration in time range) dextrose 5 % and sodium chloride 0.45 % infusion (75 mL/hr Intravenous New Bag 06/05/24 0110) levETIRAcetam (KEPPRA) injection 500 mg (500 mg Intravenous Given 06/05/24 0118) metoprolol (LOPRESSOR) injection 5 mg (has no administration in time range) lidocaine patch 1 patch (has no administration in time range) LORazepam (ATIVAN) injection 0.5 mg (0.5 mg Intravenous Given 06/05/24 0118) valproate (DEPACON) 500 mg in sodium chloride 0.9% (NS) 100 mL IVPB (has no administration in time range) ketorolac (TORADOL) injection 15 mg (has no administration in time range) sodium chloride (PF) (NS) 0.9 % contrast line flush 10 mL (10 mL Intravenous Given 06/04/242126) And sodium chloride (PF) (NS) 0.9 % contrast line flush 80 mL (80 mL Intravenous Given 06/04/242126) iopamidoL (ISOVUE-370) 370 mg iodine /mL (76 %) injection 75 mL (75 mL Intravenous Contrast Administered 06/04/242126) fentaNYL (SUBLIMAZE) injection 50 mcg (50 mcg Intravenous Given 06/04/242308) sodium chloride 0.9% (NS) bolus 500 mL (500 mL Intravenous New Bag 06/04/242308) Past History Nursing triage notes/past medical, social, surgical, and family Hx reviewed by me. See above documentation for further information. Past Medical History: Diagnosis Date Acquired thrombocytopenia ([facility]) [facility]/Lopez Shaikh Acute kidney injury (HCC) 05/22/2018 [facility]/Jonatan Chiu DO Anxiety Arm abrasion 06/19/2019 INFO GAINED FROM: /CONFUCIANIST ED VISIT NOTE --- AC GAO MD Calcaneal spur of right foot 2016 Documented on x-ray CKD (chronic kidney disease) Congestive heart failure (CHF) ([facility]) [facility]/Lopez Shaikh Contusion, hip 06/19/2019 INFO GAINED FROM: /CONFUCIANIST ED VISIT NOTE --- AC GAO MD Depression Epilepsy ([facility]) 08/06/2011 [facility]- Dr. Chopra Epilepsy ([facility]) 1994 Facet degeneration of lumbar region 10/14/2018 [facility]/Jono ALXEIS, Moi Mild facet degenerative changes seen in the lower lumbar spine Fatty liver [facility]/Joe Mendieta MD Mild fibrofatty changes of the liver Fluid collection (edema) in the arms, legs, hands and feet 03/09/2018 Dr valentina Chopra Gastritis determined by endoscopy 12/29/2016 Dr. Vnknwu-Dqrdexfsu-fxnjrsvrmycss nonbleeding with biopsy 1 para 1 Hepatic steatosis [facility]/Heidy Jara MD Mild Hiatal hernia 12/29/[address] Lobo grade 4 Hypercholesterolemia [facility]/Jonatan Chiu DO Hypertension 2001 2000-present Insomnia [facility] Shaikh Kidney stone [facility]/Lopez Shaikh Laceration of head 06/19/2019 INFO GAINED FROM: /CONFUCIANIST ED VISIT NOTE --- MENG ALEXISAC A Lung nodule 12/15/2017 0.5 cm pleural based nodule in right middle lobe. Mild linear atelectasis Mitral valve prolapse [facility]/Lopez Shaikh Motor seizure (HCC) 03/16/2019 INFO GAINED FROM: /CONFUCIANIST ED VISIT --- BLAKE STEELECAREN Rectus diastasis [facility]/Heidy Jara MD Present with small wide necked perumbical ventral containing fat. Second degree burn of foot 04/23/2018 Right Foot - [facility] Sleep apnea Stroke (HCC) 2000 mild Tremor Family History Problem Relation Age of Onset Dementia Mother Hypertension Mother Heart disease Mother Diabetes Mother Type 2 Stroke Mother Heart failure Mother Seizures Mother Parkinson's Mother Thyroid disease Father Hypertension Father Hypothyroidism Father GI problems Father Seizures Sister Hypertension Sister Heart disease Sister Hypothyroidism Sister Anxiety Sister Sickle cell anemia Other No Known Problems Brother Asthma Sister Hypertension Sister Past Surgical History: Procedure Laterality Date Conner pH capsule placement 02/01/2017 Dr. Lobo BREAST REDUCTION 2000 bilateral EGD 12/29/2016 Dr. Lobokpc [place] Central-grade 4 hiatal hernia-nonperforating gastritis ESOPHAGEAL MANOMETRY 02/01/2017 HERNIA REPAIR 06/11/2017 Dr Richards INTRAUTERINE DEVICE INSERTION 02/15/2015 Dr. Pennie Meyers OBROSALINE Laparoscopic LINX sphincter augmentation with cruroplasty 06/11/2017 Dr. Lobo WISDOM TOOTH EXTRACTION Social History Socioeconomic History Marital status: Tobacco Use Smoking status: Former Types: Cigarettes Smokeless tobacco: Never Vaping Use Vaping status: Never Used Substance and Sexual Activity Alcohol use: No Drug use: No Sexual activity: Not Currently Social Determinants of Health Food Insecurity: No Food Insecurity (03/04/2024) Hunger Vital Sign Worried About Running Out of Food in the Last Year: Never true Ran Out of Food in the Last Year: Never true Transportation Needs: No Transportation Needs (03/04/2024) PRAPARE - Transportation Lack of Transportation (Medical): No Lack of Transportation (Non-Medical): No Housing Stability: Low Risk (03/04/2024) Housing Stability Vital Sign Unable to Pay for Housing in the Last Year: No Number of Places Lived in the Last Year: 1 Unstable Housing in the Last Year: No ALLERGIES: Allergies reviewed Allergies Allergen Reactions Codeine Other (See Comments) Vomiting Dilaudid [Hydromorphone] Erythromycin Unknown Hydrocodone Unknown Morphine Unknown Morphine Sulfate Other (See Comments) Vomiting Neurontin [Gabapentin] GI Intolerance Other Phenergan [Promethazine] Other (See Comments) Sick Phenytoin Tramadol Vicodin [Hydrocodone-Acetaminophen] Other (See Comments) Vomiting Zofran [Ondansetron Hcl] Other (See Comments) Vomiting Acetaminophen Rash Not listed as allergy per F medication list Penicillins Rash MEDICATIONS: Medications reviewed Outpatient Medications Marked as Taking for the 06/04/24 encounter (Hospital Encounter) Medication Sig Dispense Refill acetaminophen (TYLENOL) 325 MG tablet Take 2 (two) tablets (650 mg total) by mouth every 8 (eight) hours as needed (mild pain) . albuterol (PROVENTIL) 2.5 mg /3 mL (0.083 %) nebulizer solution Take 3 mL (2.5 mg total) by nebulization every 6 (six) hours as needed for shortness of breath . allopurinoL (ZYLOPRIM) 300 MG tablet Take 1 (one) tablet (300 mg total) by mouth every morning . artificial tears, polyethylene glycol 400, 1 % Drop Administer 1 (one) drop to both eyes nightly . artificial tears, polyethylene glycol 400, 1 % Drop Administer 1 (one) drop to both eyes every houras needed (dry eyes) . atorvastatin (LIPITOR) 20 MG tablet Take 1 (one) tablet (20 mg total) by mouth at bedtime . benzocaine-menthoL 20-0.26 % Gel by Gums route every 6 (six) hours as needed (sore gums) Apply to gums as needed . benzonatate (TESSALON) 200 MG capsule Take 1 (one) capsule (200 mg total) by mouth every 8 (eight) hours as needed for cough . bisacodyL (DULCOLAX) 10 mg suppository Insert 1 (one) suppository (10 mg total) into the rectum daily as needed for constipation . busPIRone (BUSPAR) 10 MG tablet Take 1 (one) tablet (10 mg total) by mouth 3 (three) times a day . calcium carbonate 215 mg calcium (500 mg) Chew Chew and Swallow 1 (one) tablet (500 mg total) dailyas needed (heartburn, indigestion) . calcium carbonate-vitamin D3 600 mg-10 mcg (400 unit) per tablet Take 1 (one) tablet by mouth 2 (two) times a day . cyanocobalamin (B-12) 1000 MCG tablet Take 1 (one) tablet (1,000 mcg total) by mouth daily . divalproex (DEPAKOTE) 500 MG delayed release (DR) tablet Take 1 (one) tablet (500 mg total) by mouth 2 (two) times a day . famotidine (PEPCID) 10 MG tablet Take 2 (two) tablets (20 mg total) by mouth daily . guaiFENesin (HUMIBID 3) 400 mg Tab Take 1 (one) tablet (400 mg total) by mouth every 6 (six) hours as needed (allergies) . levETIRAcetam (KEPPRA) 500 MG tablet Take 1 (one) tablet (500 mg total) by mouth 2 (two) times a day . levothyroxine (SYNTHROID, LEVOTHROID) 25 MCG tablet Take 1 (one) tablet (25 mcg total) by mouth every morning . lidocaine (LIDODERM) 5 % patch Place 1 (one) patch on the skin every morning To back Remove & Discard patch within 12 hours or as directed by MD . lisinopriL (PRINIVIL,ZESTRIL) 20 MG tablet Take 1 (one) tablet (20 mg total) by mouth every morning. loratadine (CLARITIN) 10 mg tablet Take 1 (one) tablet (10 mg total) by mouth at bedtime . LORazepam (ATIVAN) 2 MG tablet Take 1 (one) tablet (2 mg total) by mouth at bedtime For anxiety andepilepsy . magnesium hydroxide 400 mg/5 mL Susp Take 30 mL (2,400 mg total) by mouth daily as needed Reasons: constipation. magnesium oxide (MAG-OX) 400 mg (241.3 mg magnesium) tablet Take 1 (one) tablet (400 mg total) by mouth every morning . meclizine (ANTIVERT) 50 MG tablet Take 1 (one) tablet (50 mg total) by mouth every 8 (eight) hours as needed for dizziness . melatonin 10 mg Tab Take 10 mg by mouth nightly as needed (insomnia) . metoprolol tartrate (LOPRESSOR) 25 MG tablet Take 1 (one) tablet (25 mg total) by mouth 2 (two) times a day . potassium chloride SA (K-DUR,KLOR-CON) 20 MEQ tablet Take 1 (one) tablet (20 mEq total) by mouth 2 (two) times a day . primidone (MYSOLINE) 50 MG tablet Take 4 (four) tablets (200 mg total) by mouth every 12 (twelve) hours . sertraline (ZOLOFT) 100 MG tablet Take 1 (one) tablet (100 mg total) by mouth 2 (two) times a day . sodium phosphates (FLEETS ADULT) 19-7 gram/118 mL Enem Insert 1 (one) each into the rectum daily asneeded Reasons: constipation. Previous Medications Medication Sig acetaminophen (TYLENOL) 325 MG tablet Take 2 (two) tablets (650 mg total) by mouth every 8 (eight) hours as needed (mild pain) . albuterol (PROVENTIL) 2.5 mg /3 mL (0.083 %) nebulizer solution Take 3 mL (2.5 mg total) by nebulization every 6 (six) hours as needed for shortness of breath . allopurinoL (ZYLOPRIM) 300 MG tablet Take 1 (one) tablet (300 mg total) by mouth every morning . artificial tears, polyethylene glycol 400, 1 % Drop Administer 1 (one) drop to both eyes nightly . artificial tears, polyethylene glycol 400, 1 % Drop Administer 1 (one) drop to both eyes every houras needed (dry eyes) . atorvastatin (LIPITOR) 20 MG tablet Take 1 (one) tablet (20 mg total) by mouth at bedtime . benzocaine-menthoL 20-0.26 % Gel by Gums route every 6 (six) hours as needed (sore gums) Apply to gums as needed . benzonatate (TESSALON) 200 MG capsule Take 1 (one) capsule (200 mg total) by mouth every 8 (eight) hours as needed for cough . bisacodyL (DULCOLAX) 10 mg suppository Insert 1 (one) suppository (10 mg total) into the rectum daily as needed for constipation . busPIRone (BUSPAR) 10 MG tablet Take 1 (one) tablet (10 mg total) by mouth 3 (three) times a day . calcium carbonate 215 mg calcium (500 mg) Chew Chew and Swallow 1 (one) tablet (500 mg total) dailyas needed (heartburn, indigestion) . calcium carbonate-vitamin D3 600 mg-10 mcg (400 unit) per tablet Take 1 (one) tablet by mouth 2 (two) times a day . cyanocobalamin (B-12) 1000 MCG tablet Take 1 (one) tablet (1,000 mcg total) by mouth daily . divalproex (DEPAKOTE) 500 MG delayed release (DR) tablet Take 1 (one) tablet (500 mg total) by mouth 2 (two) times a day . famotidine (PEPCID) 10 MG tablet Take 2 (two) tablets (20 mg total) by mouth daily . guaiFENesin (HUMIBID 3) 400 mg Tab Take 1 (one) tablet (400 mg total) by mouth every 6 (six) hours as needed (allergies) . levETIRAcetam (KEPPRA) 500 MG tablet Take 1 (one) tablet (500 mg total) by mouth 2 (two) times a day . levothyroxine (SYNTHROID, LEVOTHROID) 25 MCG tablet Take 1 (one) tablet (25 mcg total) by mouth every morning . lidocaine (LIDODERM) 5 % patch Place 1 (one) patch on the skin every morning To back Remove & Discard patch within 12 hours or as directed by MD . lisinopriL (PRINIVIL,ZESTRIL) 20 MG tablet Take 1 (one) tablet (20 mg total) by mouth every morning. loratadine (CLARITIN) 10 mg tablet Take 1 (one) tablet (10 mg total) by mouth at bedtime . LORazepam (ATIVAN) 2 MG tablet Take 1 (one) tablet (2 mg total) by mouth at bedtime For anxiety andepilepsy . magnesium hydroxide 400 mg/5 mL Susp Take 30 mL (2,400 mg total) by mouth daily as needed Reasons: constipation. magnesium oxide (MAG-OX) 400 mg (241.3 mg magnesium) tablet Take 1 (one) tablet (400 mg total) by mouth every morning . meclizine (ANTIVERT) 50 MG tablet Take 1 (one) tablet (50 mg total) by mouth every 8 (eight) hours as needed for dizziness . melatonin 10 mg Tab Take 10 mg by mouth nightly as needed (insomnia) . metoprolol tartrate (LOPRESSOR) 25 MG tablet Take 1 (one) tablet (25 mg total) by mouth 2 (two) times a day . potassium chloride SA (K-DUR,KLOR-CON) 20 MEQ tablet Take 1 (one) tablet (20 mEq total) by mouth 2 (two) times a day . primidone (MYSOLINE) 50 MG tablet Take 4 (four) tablets (200 mg total) by mouth every 12 (twelve) hours . sertraline (ZOLOFT) 100 MG tablet Take 1 (one) tablet (100 mg total) by mouth 2 (two) times a day . sodium phosphates (FLEETS ADULT) 19-7 gram/118 mL Enem Insert 1 (one) each into the rectum daily asneeded Reasons: constipation. amLODIPine (NORVASC) 10 MG tablet Take 1 (one) tablet (10 mg total) by mouth daily for 5 days . artificial tears,hypromellose, (ISOPTO TEARS) 0.5 % ophthalmic solution Administer 1 (one) drop to both eyes every hour as needed . artificial tears,hypromellose, (ISOPTO TEARS) 0.5 % ophthalmic solution Administer 1 (one) drop to both eyes at bedtime . atorvastatin (LIPITOR) 20 MG tablet Take 1 (one) tablet (20 mg total) by mouth at bedtime for 5 days . busPIRone (BUSPAR) 10 MG tablet Take 1 (one) tablet (10 mg total) by mouth 3 (three) times a day for 5 days . diclofenac sodium 1 % Gel Diclofenac Sodium 1 % External Gel apply sparingly to affected aea twice daily Quantity: 1 Refills: 1 Ordered: 04-Mar-2022 Jamie ALEXIS, Jeanie Start : 04-Mar-2022 Active levETIRAcetam (Keppra) 750 MG tablet Take 1 (one) tablet (750 mg total) by mouth 2 (two) times a day . LORazepam (ATIVAN) 2 MG tablet Take 1 (one) tablet (2 mg total) by mouth daily as needed (for anxiety or epilepsy) . Procedures (if completed) Procedures CRITICAL CARE TIME - no critical care time indicated . Bang Tovar DO ED Attending Physician [facility] (Please note that portions of this note may have been completed with a voice recognition program. There is a possibility of [id number] errors inherent to this technology that may be missed during proofreading and efforts were made to edit the dictations but occasionally words are mis-transcribed.) Bang Tovar DO Resident 06/05/24 0332 * Maxine Vance RN - 06/04/2024 8:43 PM EDT Pt arrives to ED for abdominal pain. Pt states this started 2 hours ago. Pt also states she vomiteda few times. Pt arrives in no distress. Breathing even and unlabored. No distress. GCS 15. * Neelima Barroso RN - 06/04/2024 8:42 PM EDT Bed: 12 Expected date: Expected time: Means of arrival: Comments: MIFFLIN documented in this [id number] History and physical note* Scott Topete MD - 06/04/2024 11:44 PM EDT [facility] [place] [facility] Patient Name: Reema Shah : 1975 MR #: [id number] Admit Date: 06/04/2024 Physicians: Jyoti Gupta MD (Family); No ref. provider found (Referring) Reema Shah is a 48 y.o. female patient of Jeanie Ayala MD with history of Thrombocytopenia, anxiety, CKD, CHF, depression, epilepsy, fatty liver, gastritis, MR, MELQUIADES, stroke, tremor presented to [facility] with abdominal pain. Acute appendicitis Admit to med surg floor Consult surgery team NPO Gentle IV hydration IV flagyl cipro OR in am Epilepsy Myoclonic jerks holding primidone Will continue Keppra 500 mg iv bid and Depakote ER 500mg iv BID CKD stage IIIa creatinine baseline between 1.3-1.5. Continue to monitor. Chronic diastolic congestive heart failure Clinically compensated EF 59% per [place] perfusion study 2018 Continue metoprolol. Hypertension Dyslipidemia Continue amlodipine and hydrochlorothiazide and statin Depression and anxiety On Zoloft and taking benzodiazepines. Will continue post op Gout and hyperuricemia On allopurinol. Will hold Hypothyroidism Holding synthroid Last TSH was 3.3 on 03/05/24 Obstructive sleep apnea On CPAP Fatty liver Continue to monitor GERD Protonix Residence prior to admission: house or apartment Was patient transferred from outlying hospital or ED no Quality Measures DVT Prophylaxis: SCds Loyn Catheter: absent Medication Reconciliation: Verified Admitted with these risk variables:Acute Kidney Injury. Please see assessment and plan for further details. Estimated Date of Discharge less than 2 midnights Code Status Full Code; code status verified on 06/04/2024 with patient (capacity intact) Chief Complaint abdominal pain. History of Present Illness Reema Shah is a 48 y.o. female patient of Jeanie Ayala MD with history of Thrombocytopenia, anxiety, CKD, CHF, depression, epilepsy, fatty liver, gastritis, MR, MELQUIADES, stroke, tremor presented to [facility] with abdominal pain. Patient presenting with abdominal pain started few hours before coming to emergency room it mainly in the lower abdomen it has been constant rated at 7- 8/10 she has been nauseated vomited about 10 times in the last last 2 or 3 hours her last bowel movement was shortly before that pain started and it was formed there was no blood denies fever or chills and there was no other complaints patient resides in a residential she had history of seizures and myoclonic jerks. In the emergency room her initial vital signs showed blood pressure 178/100 blood pressure temperature is 98.8 respirate is 18 heart rate 78 Chemistry remarkable for sodium of 140 potassium 5.2 bicarbonate is 20 her BUN is 21 creatinine 1.45 at baseline total bilirubin 0.3 AST is 43 ALT is 20 lipase is 66 troponin was 8 white blood cell count is 6000 CT scan suggest acute appendicitis Past Medical History Past Medical History: Diagnosis Date Acquired thrombocytopenia (HCC) [facility]opez Shaikh Acute kidney injury (HCC) 05/22/2018 [facility]/Jonatan Chiu DO Anxiety Arm abrasion 06/19/2019 INFO GAINED FROM: /CONFUCIANIST ED VISIT NOTE --- AC GAO MD Calcaneal spur of right foot 2016 Documented on x-ray CKD (chronic kidney disease) Congestive heart failure (CHF) ([facility]) [facility]/Lopez Shaikh Contusion, hip 06/19/2019 INFO GAINED FROM: /CONFUCIANIST ED VISIT NOTE --- AC GAO MD Depression Epilepsy ([facility]) 08/06/2011 [facility]- Dr. Chopra Epilepsy ([facility]) 1993 Facet degeneration of lumbar region 10/14/2018 [facility]/Jono ALEXIS, Moi Mild facet degenerative changes seen in the lower lumbar spine Fatty liver [facility]/Joe Mendieta MD Mild fibrofatty changes of the liver Fluid collection (edema) in the arms, legs, hands and feet 03/09/2018 Dr valentina Chopra Gastritis determined by endoscopy 12/29/2016 Dr. GonzalezJoboiw-Sxymleiyd-hcrbgijkhtwvg nonbleeding with biopsy 1 para 1 Hepatic steatosis [facility]/Heidy Jara MD Mild Hiatal hernia 12/29/[address] Lobo grade 4 Hypercholesterolemia [facility]/Jonatan Chiu DO Hypertension 2000 2000-present Insomnia [facility]/Lopez Shaikh Kidney stone [facility]/Lopez Shaikh Laceration of head 06/19/2019 INFO GAINED FROM: /CONFUCIANIST ED VISIT NOTE --- AC GAO MD Lung nodule 12/15/2017 0.5 cm pleural based nodule in right middle lobe. Mild linear atelectasis Mitral valve prolapse [facility]/Lopez Shaikh Motor seizure ([facility]) 03/16/2019 INFO GAINED FROM: /CONFUCIANIST ED VISIT --- BLAKE STEELECAREN Rectus diastasis [facility]/Heidy Jara MD Present with small wide necked perumbical ventral containing fat. Second degree burn of foot 04/23/2018 Right Foot - [facility] Sleep apnea Stroke ([facility]) 2000 mild Tremor Past Surgical History Past Surgical History: Procedure Laterality Date Conner pH capsule placement 02/01/2017 Dr. Lobo BREAST REDUCTION 2000 bilateral EGD 12/29/2016 Dr. Lobokpc [facility] [place] Central-grade 4 hiatal hernia-nonperforating gastritis ESOPHAGEAL MANOMETRY 02/01/2017 HERNIA REPAIR 06/11/2017 Dr Richards INTRAUTERINE DEVICE INSERTION 02/15/2015 Dr. Pennie Meyers OBGYN Laparoscopic LINX sphincter augmentation with cruroplasty 06/11/2017 Dr. Lobo WISDOM TOOTH EXTRACTION Family History Family History Problem Relation Age of Onset Dementia Mother Hypertension Mother Heart disease Mother Diabetes Mother Type 2 Stroke Mother Heart failure Mother Seizures Mother Parkinson's Mother Thyroid disease Father Hypertension Father Hypothyroidism Father GI problems Father Seizures Sister Hypertension Sister Heart disease Sister Hypothyroidism Sister Anxiety Sister Sickle cell anemia Other No Known Problems Brother Asthma Sister Hypertension Sister Social History Social History Tobacco Use Smoking Status Former Types: Cigarettes Smokeless Tobacco Never Social History Substance and Sexual Activity Alcohol Use No Social History Substance and Sexual Activity Drug Use No Allergy Information I have reviewed the patient's allergies. Codeine, Dilaudid [hydromorphone], Erythromycin, Morphine sulfate, Neurontin [gabapentin], Other, Phenergan [promethazine], Phenytoin, Tramadol, Vicodin [hydrocodone-acetaminophen], Zofran [ondansetron hcl], Acetaminophen, and Penicillins Home Medications Home medications were reviewed. Review Of Systems All relevant systems have been reviewed and are negative except as noted in HPI or below Physical Examination BP (!) 173/90 Pulse 71 Temp 98.8 F (37.1 C) Resp 18 Ht 4' 7 Wt 71.2 kg (157 lb) SpO2 94% BMI 36.49 kg/m General Appearance: alert; acutely ill appearing; in moderate acute distress HEENT: Head- normocephalic; Eyes- EOMI, sclera anicteric; Throat- mucous membranes moist Cardiovascular: regular rate and rhythm; normal S1, S2; no murmurs, rubs, clicks or gallops; peripheral edema 1+ Respiratory: lungs clear to auscultation; without wheezes, rales or rhonchi; on room air Abdomen: Firm move right lower quadrant tender rigidity and rebound slightly distended Neurological: oriented x 3; normal speech; no focal findings or movement disorder noted Musculoskeletal: no significant deformity or tenderness to palpation Skin: normal coloration Psych: normal mood and affect [id number] NoteHMS HISTORY AND PHYSICAL -- [facility] Patient Name: Reema Shah : 1975 MR #: [id number] Admit Date: 06/04/2024 Physicians: Jyoti Gupta MD (Family); No ref. provider found (Referring) Reema Shah is a 48 y.o. female patient of Jeanie Ayala MD with history of Thrombocytopenia, anxiety, CKD, CHF, depression, epilepsy, fatty liver, gastritis, MR, MELQUIADES, stroke, tremor presented to [facility] with abdominal pain. Acute appendicitis Admit to med surg floor Consult surgery team NPO Gentle IV hydration IV flagyl cipro OR in am Epilepsy Myoclonic jerks holding primidone Will continue Keppra 500 mg iv bid and Depakote ER 500mg iv BID CKD stage IIIa creatinine baseline between 1.3-1.5. Continue to monitor. Chronic diastolic congestive heart failure Clinically compensated EF 59% per [place] perfusion study 2019 Continue metoprolol. Hypertension Dyslipidemia Continue amlodipine and hydrochlorothiazide and statin Depression and anxiety On Zoloft and taking benzodiazepines. Will continue post op Gout and hyperuricemia On allopurinol. Will hold Hypothyroidism Holding synthroid Last TSH was 3.3 on 03/05/24 Obstructive sleep apnea On CPAP Fatty liver Continue to monitor GERD Protonix Residence prior to admission: house or apartment Was patient transferred from outlying hospital or ED no Quality Measures DVT Prophylaxis: SCds [place] Catheter: absent Medication Reconciliation: Verified Admitted with these risk variables:Acute Kidney Injury. Please see assessment and plan for further details. Estimated Date of Discharge less than 2 midnights Code Status Full Code; code status verified on 06/04/2024 with patient (capacity intact) Chief Complaint abdominal pain. History of Present Illness Reema Shah is a 48 y.o. female patient of Jeanie Ayala MD with history of Thrombocytopenia, anxiety, CKD, CHF, depression, epilepsy, fatty liver, gastritis, MR, MELQUIADES, stroke, tremor presented to [facility] with abdominal pain. Patient presenting with abdominal pain started few hours before coming to emergency room it mainly in the lower abdomen it has been constant rated at 7-8/10 she has been nauseated vomited about 10 times in the last last 2 or 3 hours her last bowel movement was shortly before that pain started and it was formed there was no blood denies fever or chills and there was no other complaints patient resides in a residential she had history of seizures and myoclonic jerks. In the emergency room her initial vital signs showed blood pressure 178/100 blood pressure temperature is 98.8 respirate is 18 heart rate 78 Chemistry remarkable for sodium of 140 potassium 5.2 bicarbonate is 20 her BUN is 21 creatinine 1.45 at baseline total bilirubin 0.3 AST is 43 ALT is 20 lipase is 66 troponin was 8 white blood cell count is 6000 CT scan suggest acute appendicitis Past Medical History Past Medical History: Diagnosis Date Acquired thrombocytopenia ([facility]) [facility] Sha[facility] Acute kidney injury ([facility]) 05/22/2018 [facility]/Jonatan Chiu DO Anxiety Arm abrasion 06/19/2019 INFO GAINED FROM: /CONFUCIANIST ED VISIT NOTE --- AC GAO MD Calcaneal spur of right foot 2016 Documented on x-ray CKD (chronic kidney disease) Congestive heart failure (CHF) ([facility]) [facility] Contusion, hip 06/19/2019 INFO GAINED FROM: /CONFUCIANIST ED VISIT NOTE --- AC GAO MD Depression Epilepsy ([facility]) 08/06/2011 [facility]- Dr. Chopra Epilepsy ([facility]) 1993 Facet degeneration of lumbar region 10/14/2018 [facility]/Jono ALEXIS, Moi Mild facet degenerative changes seen in the lower lumbar spine Fatty liver [facility]/Joe Mendieta MD Mild fibrofatty changes of the liver Fluid collection (edema) in the arms, legs, hands and feet 03/09/2018 Dr valentina Chopra Gastritis determined by endoscopy 12/29/2016 Dr. GonzalezLuttuu-Nreicgtrr-xrsesznquadhj nonbleeding with biopsy 1 para 1 Hepatic steatosis [facility]/Heidy Jara MD Mild Hiatal hernia 12/29/[address] Lobo grade 4 Hypercholesterolemia [facility]/Jonatan Chiu DO Hypertension 2000 2000-present Insomnia [facility] Kidney stone [facility] Laceration of head 06/19/2019 INFO GAINED FROM: /CONFUCIANIST ED VISIT NOTE --- MENG ALEXIS,AC A Lung nodule 12/15/2017 0.5 cm pleural based nodule in right middle lobe. Mild linear atelectasis Mitral valve prolapse [facility] Motor seizure (HCC) 03/16/2019 INFO GAINED FROM: /CONFUCIANIST ED VISIT --- BLAKE STEELECAREN Rectus diastasis [facility]/Heidy Jara MD Present with small wide necked perumbical ventral containing fat. Second degree (more content not included)...[facility]08-18-2024 History and physical note* Scott Topete MD - 06/04/2024 11:44 PM EDT [facility] [place] [facility] -- [facility] Patient Name: Reema Shah : 1975 MR #: [id number] Admit Date: 06/04/2024 Physicians: Jyoti Gupta MD (Family); No ref. provider found (Referring) Reema Shah is a 48 y.o. female patient of Jeanie Ayala MD with history of Thrombocytopenia, anxiety, CKD, CHF, depression, epilepsy, fatty liver, gastritis, MR, MELQUIADES, stroke, tremor presented to [facility] with abdominal pain. Acute appendicitis Admit to med surg floor Consult surgery team NPO Gentle IV hydration IV flagyl cipro OR in am Epilepsy Myoclonic jerks holding primidone Will continue Keppra 500 mg iv bid and Depakote ER 500mg iv BID CKD stage IIIa creatinine baseline between 1.3-1.5. Continue to monitor. Chronic diastolic congestive heart failure Clinically compensated EF 59% per [place] perfusion study 2018 Continue metoprolol. Hypertension Dyslipidemia Continue amlodipine and hydrochlorothiazide and statin Depression and anxiety On Zoloft and taking benzodiazepines. Will continue post op Gout and hyperuricemia On allopurinol. Will hold Hypothyroidism Holding synthroid Last TSH was 3.3 on 03/05/24 Obstructive sleep apnea On CPAP Fatty liver Continue to monitor GERD Protonix Residence prior to admission: house or apartment Was patient transferred from outlying hospital or ED no Quality Measures DVT Prophylaxis: SCds Lyon Catheter: absent Medication Reconciliation: Verified Admitted with these risk variables:Acute Kidney Injury. Please see assessment and plan for further details. Estimated Date of Discharge less than 2 midnights Code Status Full Code; code status verified on 06/04/2024 with patient (capacity intact) Chief Complaint abdominal pain. History of Present Illness Reema Shah is a 48 y.o. female patient of Jeanie Ayala MD with history of Thrombocytopenia, anxiety, CKD, CHF, depression, epilepsy, fatty liver, gastritis, MR, MELQUIADES, stroke, tremor presented to [facility] with abdominal pain. Patient presenting with abdominal pain started few hours before coming to emergency room it mainly in the lower abdomen it has been constant rated at 7- 8/10 she has been nauseated vomited about 10 times in the last last 2 or 3 hours her last bowel movement was shortly before that pain started and it was formed there was no blood denies fever or chills and there was no other complaints patient resides in a residential she had history of seizures and myoclonic jerks. In the emergency room her initial vital signs showed blood pressure 178/100 blood pressure temperature is 98.8 respirate is 18 heart rate 78 Chemistry remarkable for sodium of 140 potassium 5.2 bicarbonate is 20 her BUN is 21 creatinine 1.45 at baseline total bilirubin 0.3 AST is 43 ALT is 20 lipase is 66 troponin was 8 white blood cell count is 6000 CT scan suggest acute appendicitis Past Medical History Past Medical History: Diagnosis Date Acquired thrombocytopenia ([facility]) [facility] Acute kidney injury ([facility]) 05/22/2018 [facility]/Jonatan Chiu DO Anxiety Arm abrasion 06/19/2019 INFO GAINED FROM: /CONFUCIANIST ED VISIT NOTE --- AC GAO MD Calcaneal spur of right foot 2016 Documented on x-ray CKD (chronic kidney disease) Congestive heart failure (CHF) ([facility]) [facility] Contusion, hip 06/19/2019 INFO GAINED FROM: /CONFUCIANIST ED VISIT NOTE --- AC GAO MD Depression Epilepsy ([facility]) 08/06/2011 [facility]- Dr. Chopra Epilepsy ([facility]) 1994 Facet degeneration of lumbar region 10/14/2018 [facility]/Jono ALEXIS, Moi Mild facet degenerative changes seen in the lower lumbar spine Fatty liver [facility]/Joe Mendieta MD Mild fibrofatty changes of the liver Fluid collection (edema) in the arms, legs, hands and feet 03/09/2018 Dr valentina Chopra Gastritis determined by endoscopy 12/29/2016 Dr. LeeHnzkxb-Xopsvuyap-gpispfspmrpwz nonbleeding with biopsy 1 para 1 Hepatic steatosis [facility]/Heidy Jara MD Mild Hiatal hernia 12/29/[address] Lobo grade 4 Hypercholesterolemia [facility]/Jonatan Chiu DO Hypertension 2000 2000-present Insomnia [facility] Kidney stone [facility] Laceration of head 06/19/2019 INFO GAINED FROM: /CONFUCIANIST ED VISIT NOTE --- MENG ALEXIS,AC A Lung nodule 12/15/2017 0.5 cm pleural based nodule in right middle lobe. Mild linear atelectasis Mitral valve prolapse [facility] Motor seizure (HCC) 03/16/2019 INFO GAINED FROM: /CONFUCIANIST ED VISIT --- GILMAN DO,CAREN Rectus diastasis [facility]/Heidy Jara MD Present with small wide necked perumbical ventral containing fat. Second degree burn of foot 04/23/2018 Right Foot - [facility] Sleep apnea Stroke (HCC) 2000 mild Tremor Past Surgical History Past Surgical History: Procedure Laterality Date Conner pH capsule placement 02/01/2017 Dr. Lobo BREAST REDUCTION 2000 [facility]-nonperforating gastritis ESOPHAGEAL MANOMETRY 02/01/2017 HERNIA REPAIR 06/11/2017 Dr Richards INTRAUTERINE DEVICE INSERTION 02/15/2015 Dr. Pennie CARTWRIGHT Laparoscopic LINX sphincter augmentation with cruroplasty 06/11/2017 Dr. Lobo WISDOM TOOTH EXTRACTION Family History Family History Problem Relation Age of Onset Dementia Mother Hypertension Mother Heart disease Mother Diabetes Mother Type 2 Stroke Mother Heart failure Mother Seizures Mother Parkinson's Mother Thyroid disease Father Hypertension Father Hypothyroidism Father GI problems Father Seizures Sister Hypertension Sister Heart disease Sister Hypothyroidism Sister Anxiety Sister Sickle cell anemia Other No Known Problems Brother Asthma Sister Hypertension Sister Social History Social History Tobacco Use Smoking Status Former Types: Cigarettes Smokeless Tobacco Never Social History Substance and Sexual Activity Alcohol Use No Social History Substance and Sexual Activity Drug Use No Allergy Information I have reviewed the patient's allergies. Codeine, Dilaudid [hydromorphone], Erythromycin, Morphine sulfate, Neurontin [gabapentin], Other, Phenergan [promethazine], Phenytoin, Tramadol, Vicodin [hydrocodone-acetaminophen], Zofran [ondansetron hcl], Acetaminophen, and Penicillins Home Medications Home medications were reviewed. Review Of Systems All relevant systems have been reviewed and are negative except as noted in HPI or below Physical Examination BP (!) 173/90 Pulse 71 Temp 98.8 F (37.1 C) Resp 18 Ht 4' 7 Wt 71.2 kg (157 lb) SpO2 94% BMI 36.49 kg/m General Appearance: alert; acutely ill appearing; in moderate acute distress HEENT: Head- normocephalic; Eyes- EOMI, sclera anicteric; Throat- mucous membranes moist Cardiovascular: regular rate and rhythm; normal S1, S2; no murmurs, rubs, clicks or gallops; peripheral edema 1+ Respiratory: lungs clear to auscultation; without wheezes, rales or rhonchi; on room air Abdomen: Firm move right lower quadrant tender rigidity and rebound slightly distended Neurological: oriented x 3; normal speech; no focal findings or movement disorder noted Musculoskeletal: no significant deformity or tenderness to palpation Skin: normal coloration Psych: normal mood and affect documented in this [id number] Note* ED Procedure Note - Bang Tovar DO - 06/04/2024 11:35 PM EDTAssociated Order(s): EKG 12-lead EKG 12-lead Date/Time: 06/04/2024 9:39 PM Performed by: Bang Tovar DO Authorized by: Bang Tovar DO Interpreted by ED attending physician Rhythm: sinus rhythm BPM: 70 Conduction: conduction normal ST Segments: ST segments normal T Waves: T waves normal Clinical impression: normal ECG [id number] Emergency department Note* Sylvia Gaston RN - 06/04/2024 11:16 PM EDT Report received from Royer LOPEZ [id number] Emergency department Note* Maxine Vance RN - 06/04/2024 10:54 PM EDT Resting in bed. Eyes closed. Breathing even and unlabored. No distress noted. SRx2. Call light in reach. [id number] Emergency department Note* Maxine Vance RN - 06/04/2024 9:46 PM EDT In bed resting. No distress. This nurse and Manju LOPEZ cartside. Pure wick placed. Tolerated well.No other needs. SRx2. Call light in reach. [id number] Physician Emergency department Note* Bang Tovar DO - 06/04/2024 9:07 PM EDT EMERGENCY MEDICINE PROVIDER NOTE WELCOME TO [facility] NAME: Reema Shah AGE: 48 y.o. SEX: female : 1975 ENCOUNTER DATE: 06/05/24 CSN: [id number] PCP: Jyoti Gupta MD History of Presenting Illness/Medical Decision Making The history was obtained from the patient. Reema is a 48 y.o. female with a PMH as stated below, Primary Care Physician on file: Jyoti Gupta MD , who presents with a chief complaint ofAbdominal Pain. Pain located in RLQ, no radiating, sharp in nature. Denies history of similar symptoms. Denies urinary concerns including dysuria, hematuria. No diarrhea, melanotic stool, bright red blood. States she was passing gas this morning. Has not taken any medications for symptoms. Has someassociated nausea and vomiting, denies hemalatha hematemesis. Noticed streaks of red in vomit. Has tried smelling alcohol swabs for nausea, minimal improvement. Denies fever. No history of kidney stones.No syncopal episode. No CP or SOB. Denies hx of ovarian cysts. Currently not menstruating, menopausal. I saw and evaluated the patient and I have reviewed the chief complaint, as well as the nursing triage note(s), patient's past medical/surgical, family, and social history, previous ED visits, hospitalizations, and available pertinent outside records. ED Course as of 06/05/24 0332 Sun Jun 04, [id number] Potassium(!): 5.2 Slightly hemolyzed [ZW] 2228 NT Pro BNP(!) [ZW] 2228 Lipase(!) Low suspicion for acute pancreatitis. [ZW] 2228 Urinalysis(!) Urinalysis without evidence of blood, no bacteria, low suspicion for acute UTI, obstructive uropathy, or vascular nephropathy. [ZW] 2228 Creatinine(!): 1.45 CKD, renal function grossly at baseline upon chart comparison. [ZW] 2229 CBC w/ Diff(!) Thrombocytopenia. Known history upon chart comparison. Does not require emergent platelet transfusion at this time. [ZW] 2229 Troponin x 2 (Now and Repeat in 3 hours) Troponin negative, ACS unlikely. [ZW] ED Course User Index [ZW] Bang Tovar S, DO Upon arrival vital signs stable. On exam she does appear to be uncomfortable, however nontoxic appearing, non-ill appearing. Lungs CTA bilaterally. Pulses intact and equal throughout all 4 extremities, low suspicion for an acute aortic dissection per my clinical gestalt. EKG obtained and reviewed, NSR, low suspicion for ACS, troponin negative. Urinalysis noninfectious without evidence of bacteria, no blood, no flank pain or CVA tenderness on examination, low suspicion for obstructive uropathy or vascular nephropathy. Negative sirs criteria, sepsis unlikely. Hemoglobin WNL at 14.7. Renal function at baseline. Borderline hyperkalemia, however slightly hemolyzed, no EKG changes. BNP slightly elevated given patient's known history of cardiac disease, does not appear to be clinically having a CHF exacerbation. Abdomen soft, nonperitoneal, however does have localized tenderness to be palpation in the right lower quadrant concerning for acute appendicitis given the CT imaging results, no absc ess or perforation, no free air, SBO, diverticulitis. Incidental finding does include large colonicBernard consistent with underlying constipation. Patient was made n.p.o., given pain control with 50 mcg IV fentanyl. Surgery team consulted, plan for admission for OR management and IV antibiotics per surgery team. The patient will require admission to the hospital for further evaluation and management. The patient was agreeable to this plan. The patient was treated symptomatically and remained stable throughout their ED course. The patient is appropriate for transfer to the floor and was signed out to the accepting hospital service to assume care. IMPRESSION: 1. Acute appendicitis, unspecified acute appendicitis type 2. Thrombocytopenia (HCC) 3. Elevated serum creatinine 4. History of epilepsy 5. Constipation, unspecified constipation type Discussed with: Hospitalist and Surgery ED Disposition ED Disposition Hospitalize Condition -- Comment Reason for inpatient over two midnights: .. Social Determinants of Health (SDOH) were considered that may have impacted treatment/disposition. she did NOT appear to have any significant issues identified. . (See below) Shared Decision Making (SDM) utilized by explaining the results and plan of care for disposition and next steps of care with the patient and/or family. Potential impact of patient's medical/surgical comorbidities were assessed and considered when determining the treatment course and outcome. Discussed options for treatment with or without prescription medications. Physical Exam Vital Signs Reviewed Patient Vitals for the past 24 hrs: BP Temp Temp src Pulse Resp SpO2 Height Weight 06/05/24 0109 (!) 179/102 98.4 F (36.9 C) Oral (!) 55 16 98 % -- -- 06/04/24 2309 -- -- -- -- 18 -- -- -- 06/04/24 2245 (!) 173/90 -- -- 71 18 94 % -- -- 06/04/24 2043 (!) 178/101 98.8 F (37.1 C) -- 78 18 97 % 4' 7 71.2 kg (157 lb) BP (!) 179/102 Pulse (!) 55 Temp 98.4 F (36.9 C) (Oral) Resp 16 Ht 4' 7 Wt 71.2 kg (157 lb) SpO2 98% BMI 36.49 kg/m Physical Exam Vitals and nursing note reviewed. Constitutional: General: She is awake. She is in acute distress. Appearance: Normal appearance. She is not ill-appearing, toxic-appearing or diaphoretic. HENT: Head: Normocephalic and atraumatic. Right Ear: External ear normal. Left Ear: External ear normal. Nose: Nose normal. Mouth/Throat: Lips: [place]. Mouth: Mucous membranes are moist. Eyes: General: Lids are normal. No scleral icterus. Conjunctiva/sclera: Conjunctivae normal. Neck: Trachea: Phonation normal. Comments: Supple without meningismus Cardiovascular: Rate and Rhythm: Normal rate and regular rhythm. Pulses: Normal pulses. Radial pulses are 2+ on the right side and 2+ on the left side. Dorsalis pedis pulses are 2+ on the right side and 2+ on the left side. Posterior tibial pulses are 2+ on the right side and 2+ on the left side. Heart sounds: Normal heart sounds. No murmur heard. Musculoskeletal: Cervical back: Normal range of motion and neck supple. No tenderness. Right lower leg: No edema. Left lower leg: No edema. Pulmonary: Effort: Pulmonary effort is normal. No tachypnea, accessory muscle usage, respiratory distress or retractions. Breath sounds: Normal breath sounds and air entry. No stridor. No decreased breath sounds, wheezing, rhonchi or rales. Abdominal: General: Abdomen is flat. Bowel sounds are normal. There is no distension. There are no signs of injury. Palpations: Abdomen is soft. There is no pulsatile mass. Tenderness: There is abdominal tenderness in the right lower quadrant. There is no right CVA tenderness, left CVA tenderness, guarding or rebound. Negative signs include Wall's sign, Rovsing's signand McBurney's sign. Skin: General: Skin is warm. Capillary Refill: Capillary refill takes less than 2 seconds. Neurological: General: No focal deficit present. Mental Status: She is alert and oriented to person, place, and time. Psychiatric: Attention and Perception: Attention and perception normal. Mood and Affect: Mood and affect normal. Speech: Speech normal. Behavior: Behavior normal. Behavior is cooperative. Wt Readings from Last 10 Encounters: 06/04/24 71.2 kg (157 lb) 04/07/24 74.8 kg (165 lb) 03/04/24 72.6 kg (160 lb) 03/03/24 72.6 kg (160 lb) 01/08/23 72.6 kg (160 lb) 05/06/22 72.6 kg (160 lb) 08/16/21 72.6 kg (160 lb) 05/15/21 74.8 kg (165 lb) 12/01/20 75 kg (165 lb 5.5 oz) 03/16/19 68.5 kg (151 lb) Clinical Results CT Abdomen Pelvis With IV Contrast Only Final Result Findings suggestive of acute appendicitis. No abnormal fluid collection is seen at this time. I discussed findings with Helga Roche NP in the ED at 11:02 p.m.. Workstation ID: [id number] Labs Reviewed COMPREHENSIVE METABOLIC PANEL - Abnormal; Notable for the following components: Result Value Potassium 5.2 (*) Bicarbonate 20 (*) Glucose 125 (*) Creatinine 1.45 (*) eGFR 44 (*) AST 43 (*) All other components within normal limits Narrative: [facility] has implemented the eGFR calculation approach that does not have a coefficient for race that conforms to the NKF-ASN Task Force Recommendations. LIPASE - Abnormal; Notable for the following components: Lipase 66 (*) All other components within normal limits URINALYSIS - Abnormal; Notable for the following components: Specific [place] 1.028 (*) pH, Urine 8.0 (*) All other components within normal limits Narrative: Microscopic examination is performed on all urinalysis samples and only positive findings are reported. The test for blood on the chemical analytic portion of urinalysis may also be positive due to hemoglobinuria and myoglobinuria and if red blood cells are present they are quantified by microscopic examination. NT PRO BNP - Abnormal; Notable for the following components: NT-Pro BNP 726 (*) All other components within normal limits Narrative: Pride Study Cut-offs Rule In: < /= 50 Years >450 pg/mL 51 Years - 75 Years >900 pg/mL 76 Years - 99 Years >1800 pg/mL Rule Out: All patients <300 pg/mL CBC WITH AUTO DIFFERENTIAL - Abnormal; Notable for the following components: Platelets 84 (*) All other components within normal limits MORPHOLOGY - Abnormal; Notable for the following components: Platelet Estimate Decreased (*) All other components within normal limits CBC AND DIFFERENTIAL Narrative: The following orders were created for panel order CBC w/ Diff. Procedure Abnormality Status --------- ------ CBC Auto Differential[[id number]] Abnormal Final result Manual Differential[[id number]] Final result CBC and Diff Morphology[[id number]] Abnormal Final result Please view results for these tests on the individual orders. TROPONIN CBC AND DIFFERENTIAL Narrative: The following orders were created for panel order CBC and Differential. Procedure Abnormality Status --------- ------ CBC Auto Differential[[id number]] Please view results for these tests on the individual orders. COMPREHENSIVE METABOLIC PANEL MANUAL DIFFERENTIAL CBC WITH AUTO DIFFERENTIAL Medications ciprofloxacin (CIPRO) IVPB 400 mg (premix) (400 mg Intravenous New Bag 06/05/24 0124) metroNIDAZOLE (FLAGYL) IVPB 500 mg (500 mg Intravenous New Bag 06/05/24 0258) sodium chloride (PF) (NS) flush 5 mL (has no administration in time range) And sodium chloride (PF) (NS) flush 5 mL ( Intravenous Canceled Entry 06/05/24 0145) And sodium chloride 0.9% (NS) (has no administration in time range) dextrose 5 % and sodium chloride 0.45 % infusion (75 mL/hr Intravenous New Bag 06/05/24 0110) levETIRAcetam (KEPPRA) injection 500 mg (500 mg Intravenous Given 06/05/24 0118) metoprolol (LOPRESSOR) injection 5 mg (has no administration in time range) lidocaine patch 1 patch (has no administration in time range) LORazepam (ATIVAN) injection 0.5 mg (0.5 mg Intravenous Given 06/05/24 011) valproate (DEPACON) 500 mg in sodium chloride 0.9% (NS) 100 mL IVPB (has no administration in time range) ketorolac (TORADOL) injection 15 mg (has no administration in time range) sodium chloride (PF) (NS) 0.9 % contrast line flush 10 mL (10 mL Intravenous Given 06/04/247) And sodium chloride (PF) (NS) 0.9 % contrast line flush 80 mL (80 mL Intravenous Given 06/04/242126) iopamidoL (ISOVUE-370) 370 mg iodine /mL (76 %) injection 75 mL (75 mL Intravenous Contrast Administered 06/04/242126) fentaNYL (SUBLIMAZE) injection 50 mcg (50 mcg Intravenous Given 06/04/242308) sodium chloride 0.9% (NS) bolus 500 mL (500 mL Intravenous New Bag 06/04/242308) Past History Nursing triage notes/past medical, social, surgical, and family Hx reviewed by me. See above documentation for further information. Past Medical History: Diagnosis Date Acquired thrombocytopenia ([facility]) [facility] Acute kidney injury (HCC) 05/22/2018 [facility]/Jonatan Chiu DO Anxiety Arm abrasion 06/19/2019 INFO GAINED FROM: /CONFUCIANIST ED VISIT NOTE --- AC GAO MD Calcaneal spur of right foot 2016 Documented on x-ray CKD (chronic kidney disease) Congestive heart failure (CHF) ([facility]) [facility] Contusion, hip 06/19/2019 INFO GAINED FROM: /CONFUCIANIST ED VISIT NOTE --- AC GAO MD Depression Epilepsy ([facility]) 08/06/2011 [facility]- [address]. Chopra Epilepsy ([facility]) 1993 Facet degeneration of lumbar region 10/14/2018 [facility]/Jono ALEXIS, Moi Mild facet degenerative changes seen in the lower lumbar spine Fatty liver [facility]/Joe Mendieta MD Mild fibrofatty changes of the liver Fluid collection (edema) in the arms, legs, hands and feet 03/09/2018 Dr valentina Chopra Gastritis determined by endoscopy 12/29/2016 Dr. GonzalezRzcsmb-Dbxonwiib-fnkcqufbndazi nonbleeding with biopsy 1 para 1 Hepatic steatosis [facility]/Heidy Jara MD Mild Hiatal hernia 12/29/[address] Lobo grade 4 Hypercholesterolemia [facility]/Jonatan Chiu DO Hypertension 2000 2000-present Insomnia [facility] Kidney stone [facility] Laceration of head 06/19/2019 INFO GAINED FROM: /CONFUCIANIST ED VISIT NOTE --- AC GAO MD Lung nodule 12/15/2017 0.5 cm pleural based nodule in right middle lobe. Mild linear atelectasis Mitral valve prolapse [facility] Motor seizure (HCC) 03/16/2019 INFO GAINED FROM: /CONFUCIANIST ED VISIT --- BLAKE STEELECAREN Rectus diastasis [facility]/Heidy Jara MD Present with small wide necked perumbical ventral containing fat. Second degree burn of foot 04/23/2018 Right Foot [facility] Sleep apnea Stroke (HCC) 2001 mild Tremor Family History Problem Relation Age of Onset Dementia Mother Hypertension Mother Heart disease Mother Diabetes Mother Type 2 Stroke Mother Heart failure Mother Seizures Mother Parkinson's Mother Thyroid disease Father Hypertension Father Hypothyroidism Father GI problems Father Seizures Sister Hypertension Sister Heart disease Sister Hypothyroidism Sister Anxiety Sister Sickle cell anemia Other No Known Problems Brother Asthma Sister Hypertension Sister Past Surgical History: Procedure Laterality Date Conner pH capsule placement 02/01/2017 Dr. Lobo BREAST REDUCTION 1999 bilateral EGD 12/29/2016 Dr. [facility] [place] Central-grade 4 hiatal hernia-nonperforating gastritis ESOPHAGEAL MANOMETRY 02/01/2017 HERNIA REPAIR 06/11/2017 Dr Richards INTRAUTERINE DEVICE INSERTION 02/15/2015 Dr. Pennie Meyers OBROSALINE Laparoscopic LINX sphincter augmentation with cruroplasty 06/11/2017 Dr. Lobo WISDOM TOOTH EXTRACTION Social History Socioeconomic History Marital status: Tobacco Use Smoking status: Former Types: Cigarettes Smokeless tobacco: Never Vaping Use Vaping status: Never Used Substance and Sexual Activity Alcohol use: No Drug use: No Sexual activity: Not Currently Social Determinants of Health Food Insecurity: No Food Insecurity (03/04/2024) Hunger Vital Sign Worried About Running Out of Food in the Last Year: Never true Ran Out of Food in the Last Year: Never true Transportation Needs: No Transportation Needs (03/04/2024) PRAPARE - Transportation Lack of Transportation (Medical): No Lack of Transportation (Non-Medical): No Housing Stability: Low Risk (03/04/2024) Housing Stability Vital Sign Unable to Pay for Housing in the Last Year: No Number of Places Lived in the Last Year: 1 Unstable Housing in the Last Year: No ALLERGIES: Allergies reviewed Allergies Allergen Reactions Codeine Other (See Comments) Vomiting Dilaudid [Hydromorphone] Erythromycin Unknown Hydrocodone Unknown Morphine Unknown Morphine Sulfate Other (See Comments) Vomiting Neurontin [Gabapentin] GI Intolerance Other Phenergan [Promethazine] Other (See Comments) Sick Phenytoin Tramadol Vicodin [Hydrocodone-Acetaminophen] Other (See Comments) Vomiting Zofran [Ondansetron Hcl] Other (See Comments) Vomiting Acetaminophen Rash Not listed as allergy per F medication list Penicillins Rash MEDICATIONS: Medications reviewed Outpatient Medications Marked as Taking for the 06/04/24 encounter (Hospital Encounter) Medication Sig Dispense Refill acetaminophen (TYLENOL) 325 MG tablet Take 2 (two) tablets (650 mg total) by mouth every 8 (eight) hours as needed (mild pain) . albuterol (PROVENTIL) 2.5 mg /3 mL (0.083 %) nebulizer solution Take 3 mL (2.5 mg total) by nebulization every 6 (six) hours as needed for shortness of breath . allopurinoL (ZYLOPRIM) 300 MG tablet Take 1 (one) tablet (300 mg total) by mouth every morning . artificial tears, polyethylene glycol 400, 1 % Drop Administer 1 (one) drop to both eyes nightly . artificial tears, polyethylene glycol 400, 1 % Drop Administer 1 (one) drop to both eyes every houras needed (dry eyes) . atorvastatin (LIPITOR) 20 MG tablet Take 1 (one) tablet (20 mg total) by mouth at bedtime . benzocaine-menthoL 20-0.26 % Gel by Gums route every 6 (six) hours as needed (sore gums) Apply to gums as needed . benzonatate (TESSALON) 200 MG capsule Take 1 (one) capsule (200 mg total) by mouth every 8 (eight) hours as needed for cough . bisacodyL (DULCOLAX) 10 mg suppository Insert 1 (one) suppository (10 mg total) into the rectum daily as needed for constipation . busPIRone (BUSPAR) 10 MG tablet Take 1 (one) tablet (10 mg total) by mouth 3 (three) times a day . calcium carbonate 215 mg calcium (500 mg) Chew Chew and Swallow 1 (one) tablet (500 mg total) dailyas needed (heartburn, indigestion) . calcium carbonate-vitamin D3 600 mg-10 mcg (400 unit) per tablet Take 1 (one) tablet by mouth 2 (two) times a day . cyanocobalamin (B-12) 1000 MCG tablet Take 1 (one) tablet (1,000 mcg total) by mouth daily . divalproex (DEPAKOTE) 500 MG delayed release (DR) tablet Take 1 (one) tablet (500 mg total) by mouth 2 (two) times a day . famotidine (PEPCID) 10 MG tablet Take 2 (two) tablets (20 mg total) by mouth daily . guaiFENesin (HUMIBID 3) 400 mg Tab Take 1 (one) tablet (400 mg total) by mouth every 6 (six) hours as needed (allergies) . levETIRAcetam (KEPPRA) 500 MG tablet Take 1 (one) tablet (500 mg total) by mouth 2 (two) times a day . levothyroxine (SYNTHROID, LEVOTHROID) 25 MCG tablet Take 1 (one) tablet (25 mcg total) by mouth every morning . lidocaine (LIDODERM) 5 % patch Place 1 (one) patch on the skin every morning To back Remove & Discard patch within 12 hours or as directed by MD . lisinopriL (PRINIVIL,ZESTRIL) 20 MG tablet Take 1 (one) tablet (20 mg total) by mouth every morning. loratadine (CLARITIN) 10 mg tablet Take 1 (one) tablet (10 mg total) by mouth at bedtime . LORazepam (ATIVAN) 2 MG tablet Take 1 (one) tablet (2 mg total) by mouth at bedtime For anxiety andepilepsy . magnesium hydroxide 400 mg/5 mL Susp Take 30 mL (2,400 mg total) by mouth daily as needed Reasons: constipation. magnesium oxide (MAG-OX) 400 mg (241.3 mg magnesium) tablet Take 1 (one) tablet (400 mg total) by mouth every morning . meclizine (ANTIVERT) 50 MG tablet Take 1 (one) tablet (50 mg total) by mouth every 8 (eight) hours as needed for dizziness . melatonin 10 mg Tab Take 10 mg by mouth nightly as needed (insomnia) . metoprolol tartrate (LOPRESSOR) 25 MG tablet Take 1 (one) tablet (25 mg total) by mouth 2 (two) times a day . potassium chloride SA (K-DUR,KLOR-CON) 20 MEQ tablet Take 1 (one) tablet (20 mEq total) by mouth 2 (two) times a day . primidone (MYSOLINE) 50 MG tablet Take 4 (four) tablets (200 mg total) by mouth every 12 (twelve) hours . sertraline (ZOLOFT) 100 MG tablet Take 1 (one) tablet (100 mg total) by mouth 2 (two) times a day . sodium phosphates (FLEETS ADULT) 19-7 gram/118 mL Enem Insert 1 (one) each into the rectum daily asneeded Reasons: constipation. Previous Medications Medication Sig acetaminophen (TYLENOL) 325 MG tablet Take 2 (two) tablets (650 mg total) by mouth every 8 (eight) hours as needed (mild pain) . albuterol (PROVENTIL) 2.5 mg /3 mL (0.083 %) nebulizer solution Take 3 mL (2.5 mg total) by nebulization every 6 (six) hours as needed for shortness of breath . allopurinoL (ZYLOPRIM) 300 MG tablet Take 1 (one) tablet (300 mg total) by mouth every morning . artificial tears, polyethylene glycol 400, 1 % Drop Administer 1 (one) drop to both eyes nightly . artificial tears, polyethylene glycol 400, 1 % Drop Administer 1 (one) drop to both eyes every houras needed (dry eyes) . atorvastatin (LIPITOR) 20 MG tablet Take 1 (one) tablet (20 mg total) by mouth at bedtime . benzocaine-menthoL 20-0.26 % Gel by Gums route every 6 (six) hours as needed (sore gums) Apply to gums as needed . benzonatate (TESSALON) 200 MG capsule Take 1 (one) capsule (200 mg total) by mouth every 8 (eight) hours as needed for cough . bisacodyL (DULCOLAX) 10 mg suppository Insert 1 (one) suppository (10 mg total) into the rectum daily as needed for constipation . busPIRone (BUSPAR) 10 MG tablet Take 1 (one) tablet (10 mg total) by mouth 3 (three) times a day . calcium carbonate 215 mg calcium (500 mg) Chew Chew and Swallow 1 (one) tablet (500 mg total) dailyas needed (heartburn, indigestion) . calcium carbonate-vitamin D3 600 mg-10 mcg (400 unit) per tablet Take 1 (one) tablet by mouth 2 (two) times a day . cyanocobalamin (B-12) 1000 MCG tablet Take 1 (one) tablet (1,000 mcg total) by mouth daily . divalproex (DEPAKOTE) 500 MG delayed release (DR) tablet Take 1 (one) tablet (500 mg total) by mouth 2 (two) times a day . famotidine (PEPCID) 10 MG tablet Take 2 (two) tablets (20 mg total) by mouth daily . guaiFENesin (HUMIBID 3) 400 mg Tab Take 1 (one) tablet (400 mg total) by mouth every 6 (six) hours as needed (allergies) . levETIRAcetam (KEPPRA) 500 MG tablet Take 1 (one) tablet (500 mg total) by mouth 2 (two) times a day . levothyroxine (SYNTHROID, LEVOTHROID) 25 MCG tablet Take 1 (one) tablet (25 mcg total) by mouth every morning . lidocaine (LIDODERM) 5 % patch Place 1 (one) patch on the skin every morning To back Remove & Discard patch within 12 hours or as directed by MD . lisinopriL (PRINIVIL,ZESTRIL) 20 MG tablet Take 1 (one) tablet (20 mg total) by mouth every morning. loratadine (CLARITIN) 10 mg tablet Take 1 (one) tablet (10 mg total) by mouth at bedtime . LORazepam (ATIVAN) 2 MG tablet Take 1 (one) tablet (2 mg total) by mouth at bedtime For anxiety andepilepsy . magnesium hydroxide 400 mg/5 mL Susp Take 30 mL (2,400 mg total) by mouth daily as needed Reasons: constipation. magnesium oxide (MAG-OX) 400 mg (241.3 mg magnesium) tablet Take 1 (one) tablet (400 mg total) by mouth every morning . meclizine (ANTIVERT) 50 MG tablet Take 1 (one) tablet (50 mg total) by mouth every 8 (eight) hours as needed for dizziness . melatonin 10 mg Tab Take 10 mg by mouth nightly as needed (insomnia) . metoprolol tartrate (LOPRESSOR) 25 MG tablet Take 1 (one) tablet (25 mg total) by mouth 2 (two) times a day . potassium chloride SA (K-DUR,KLOR-CON) 20 MEQ tablet Take 1 (one) tablet (20 mEq total) by mouth 2 (two) times a day . primidone (MYSOLINE) 50 MG tablet Take 4 (four) tablets (200 mg total) by mouth every 12 (twelve) hours . sertraline (ZOLOFT) 100 MG tablet Take 1 (one) tablet (100 mg total) by mouth 2 (two) times a day . sodium phosphates (FLEETS ADULT) 19-7 gram/118 mL Enem Insert 1 (one) each into the rectum daily asneeded Reasons: constipation. amLODIPine (NORVASC) 10 MG tablet Take 1 (one) tablet (10 mg total) by mouth daily for 5 days . artificial tears,hypromellose, (ISOPTO TEARS) 0.5 % ophthalmic solution Administer 1 (one) drop to both eyes every hour as needed . artificial tears,hypromellose, (ISOPTO TEARS) 0.5 % ophthalmic solution Administer 1 (one) drop to both eyes at bedtime . atorvastatin (LIPITOR) 20 MG tablet Take 1 (one) tablet (20 mg total) by mouth at bedtime for 5 days . busPIRone (BUSPAR) 10 MG tablet Take 1 (one) tablet (10 mg total) by mouth 3 (three) times a day for 5 days . diclofenac sodium 1 % Gel Diclofenac Sodium 1 % External Gel apply sparingly to affected aea twice daily Quantity: 1 Refills: 1 Ordered: 04-Mar-2022 Jeanie Ayala MD Start : 04-Mar-2022 Active levETIRAcetam (Keppra) 750 MG tablet Take 1 (one) tablet (750 mg total) by mouth 2 (two) times a day . LORazepam (ATIVAN) 2 MG tablet Take 1 (one) tablet (2 mg total) by mouth daily as needed (for anxiety or epilepsy) . Procedures (if completed) Procedures CRITICAL CARE TIME - no critical care time indicated . Bang Tovar DO ED Attending Physician [facility] (Please note that portions of this note may have been completed with a voice recognition program. There is a possibility of [id number] errors inherent to this technology that may be missed during proofreading and efforts were made to edit the dictations but occasionally words are mis-transcribed.) Bang Tovar DO Resident 06/05/24 [id number] Emergency department Triage note* Maxine Vance RN - 06/04/2024 8:43 PM EDT Pt arrives to ED for abdominal pain. Pt states this started 2 hours ago. Pt also states she vomiteda few times. Pt arrives in no distress. Breathing even and unlabored. No distress. GCS 15. [id number] Emergency department Note* Neelima Barroso RN - 06/04/2024 8:42 PM EDT Bed: 12 Expected date: Expected time: Means of arrival: Comments: MIFFLIN [id number] History of Present illness Narrative* Gayatri Bobby PA-C - 05/31/2024 3:00 PM EDT DATE OF SERVICE: 05/31/2024 PATIENT NAME: Reema Shah : 1975 AGE: 48 y.o. CLINIC NUMBER: [id number] Visit type: New Chief Complaint Patient presents with Psoriasis New Patient (TONI) Subjective HISTORY OF PRESENT ILLNESS: This is a 48 y.o. female who presents for C/o-rash located on the behind left ear and scalp x 5 months.patient states her neurologist thought it was psoriasis. Patient states this is usually related to stress.Admits redness, Denies flaking, scaling.Admits itching, Deniesburning, pain.Admits joint pain/ joint stiffness to the fingers to both hands but just the left hand 2nd digit and patient stated that last night it felt like a needle was being poked through her finger. Patient states she was advised that this is nerve damage.Denies recent illness/fever/strep throat. Denies family hx of psoriasis. Patient states maybe her sister but is unsure.Admits previous diana tment with Vaseline. Currently using Cobrain tree body wash, no lotion and unsure of the laundry detergent. Patient stated when she lived in [place] that is when the redness got worse and a provider in [place] gave her a solution to put on the areas. Patient has never seen a cartographic aide in the past. Are you , trying to become or ? No History of pacemaker/ defibrillator? No History of HIV/ Hep C? No Allergies to Lidocaine, Epinephrine, Latex or Adhesive? No REVIEW OF SYSTEMS: General/Constitutional Feels well; denies h/o fatigue, weight change, night sweats, fevers or chills. Lymphatic Denies swollen lymph nodes. Dermatologic As per HPI; otherwise negative There were no vitals filed for this visit. GENERAL APPEARANCE:?Alert & oriented x3, pleasant. Well developed, well nourished. PSYCH: appropriate mood and affect 1. Seborrheic dermatitis Left Postauricular Sulcus, Right Postauricular Area, Scalp Diffuse scaling with underlying erythema of the postauricular ears; minimal scaling of frontal scalp with underlying erythema [x]Chronic []Acute []Stable [x]Flaring/Exacerbation Educated and reassured. Treatment options, risks, benefits, and expectations reviewed. Start: -ketoconazole shampoo: Use to wash the scalp 3 to 4 times weekly allowing to sit 3 minutes before rinsing. May use regular shampoo and condition after. -triamcinolone ointment: Apply to affected areas BID x 2 weeks Stop using when clear. Repeat as needed for flares. Do not use on face, armpits, groin. Risks associated with custodial topical steroid use reviewed in detail. Patient was advised that topical steroid is being used for short term relief and not as maintenance. Overuse of topical steroids can result in permanent skin thinning/atrophy, skin discoloration, unwanted hair growth, acne and/or stretch hurd/striae. -clobetasol solution: massage into affected areas of scalp BID x 6 weeks then prn flares Related Medications ketoconazole (NIZOral) 2 % shampoo Use to wash the scalp 3 times weekly allowing to sit 3 minutes before rinsing. May use regular shampoo and condition after. Do not start before June 01, 2024. clobetasol (Temovate) 0.05 % external solution Apply to affected areas on scalp BID x 6 weeks Stop using when clear. Repeat as needed for flares. Do not use on face, armpits, groin. triamcinolone (Kenalog) 0.1 % ointment Apply to affected areas behind ears BID x 2 weeks Stop using when clear. Repeat as needed for flares. Orders Placed This Encounter Medications ketoconazole (NIZOral) 2 % shampoo Sig: Use to wash the scalp 3 times weekly allowing to sit 3 minutes before rinsing. May use regularshampoo and condition after. Do not start before June 01, 2024. Dispense: 120 mL Refill: 3 clobetasol (Temovate) 0.05 % external solution Sig: Apply to affected areas on scalp BID x 6 weeks Stop using when clear. Repeat as needed for flares. Do not use on face, armpits, groin. Dispense: 50 mL Refill: 3 triamcinolone (Kenalog) 0.1 % ointment Sig: Apply to affected areas behind ears BID x 2 weeks Stop using when clear. Repeat as needed for flares. Dispense: 80 g Refill: 1 Follow up in about 3 months (around 08/31/2024) for Krysten Derm f/u. Gayatri Bobby PA-C 05/31/24 3:32 PM REFERRING MD: [id number] [facility] [id number] documented in this [facility]07-03-2024 History of Present illness Narrative* Shayy Mcginnis MD - 04/19/2024 2:00 PM EDT Assessment/Plan: Reema Shah is a 48 y.o. female who presents to clinic today to address the following issues: 1. Well woman exam (no gynecological exam) 2. Screening mammogram for breast cancer Well woman without pap smear as up to date. Patient opted out of pelvic exam since she recently hadone is and is not having new symptoms. We discussed recent results and she decided to not try to continue to pursue hysterectomy. She has not had bleeding except from a rectent skin irritation. No other symptoms. Mammogram discussed, already ordered by her primary. Pap smear: co test 2020 Mammogram: 2021, ordered Depression Screening: neg HIV Screen: done previously DV: neg April 2024 DEXA: NYI There are no Patient Instructions on file for this visit. Follow up: 1 year or sooner as needed Return precautions discussed. An After Visit Summary was given to the patient. All questions were answered and patient in agreement with plan. Subjective: Reema Shah is a 48 y.o. female who presents to clinic today for Gynecologic Exam (Patient is here for yearly exam.) HPI: Gynecologic History: (Please complete obstetric history in the history tab) - Do you have any menstrual concerns? She notes occasional severe pelvic pain and bilateral side pain, she notes that when she saw gynecology in [place] they felt this was not pelvic related and she didn't need a hysterectomy she has not had a period for 7 months. She did have minimal spotting last week. - Do you have any breast concerns? yes pain in the right breast occasionally - Date of last pap smear: 2020 - Results of last pap smear, if known: normal and cotested - Personal history of prior abnormal pap smear?: no No results found for: INTERP - Date of last mammogram: 2021 - Results of last mammogram: normal - Personal history of prior abnormal mammogram: no Sexual history (provider to ask): - Have you been sexually active within the past year? no - What are the genders of your sexual partner(s)? N/a - Do you have a personal history of sexually transmitted infections (STI)?: no - Have you ever been tested for HIV? yes - Do you want comprehensive STI testing today? no Domestic Violence Screening (Provider to ask): Because violence is so common in many people's lives and because there is help available for those being abused, I now ask every patient about domestic violence: - Within the past year have you been hit, slapped, kicked or otherwise physically hurt by someone? no - Are you in a relationship with a person who threatens or physically hurts you? no - Has anyone forced you to have sexual activities that made you feel uncomfortable? no Review of Systems Objective: BP 120/64 Ht 1.397 m (4' 7) LMP 04/14/2024 (Approximate) BMI 38.35 kg/m Physical Exam Vitals and nursing note reviewed. Exam conducted with a plug maker present. Constitutional: General: She is not in acute distress. Appearance: Normal appearance. She is obese. Comments: In wheelchair HENT: Head: Normocephalic and atraumatic. Mouth/Throat: Mouth: Mucous membranes are moist. Eyes: General: No scleral icterus. Right eye: No discharge. Left eye: No discharge. Extraocular Movements: Extraocular movements intact. Conjunctiva/sclera: Conjunctivae normal. Pulmonary: Effort: No respiratory distress. Chest: Chest wall: No mass. Breasts: Mikal Score is 5. Breasts are symmetrical. Right: Normal. No swelling, bleeding, inverted nipple, mass, nipple discharge, skin change or tenderness. Left: Normal. No swelling, bleeding, inverted nipple, mass, nipple discharge, skin change or tenderness. Comments: Bilateral reduction scars present Abdominal: Tenderness: There is abdominal tenderness. There is no guarding or rebound. Lymphadenopathy: Upper Body: Right upper body: No supraclavicular, axillary or pectoral adenopathy. Left upper body: No supraclavicular, axillary or pectoral adenopathy. Skin: General: Skin is warm and dry. Neurological: General: No focal deficit present. Mental Status: She is alert and oriented to person, place, and time. Psychiatric: Attention and Perception: Attention normal. Mood and Affect: Mood normal. Speech: Speech normal. Behavior: Behavior normal. Cognition and Memory: Cognition and memory normal. Judgment: Judgment normal. I spent 19 minutes in total time for this visit including all related clinical activities before, during, and after the visit excluding other billable activities/procedure time. Shayy Mcginnis MD documented [facility] [place] Work Phone: [phone] 254-145906-19-2024 History of Present illness Narrative* Khalida Mtz MD - 04/05/2024 11:30 AM EDT Division of Minimally Invasive Gynecologic Surgery [facility] 04/05/24 Gynecology Visit CC: Chief Complaint Patient presents with Consult Endometriosis Fibroids Global Manager not required Reviewed and approved by LUCY NEWELL on 04/05/24 at 10:56 AM. Reema Shah is a 48 y.o. referred to our practice by Dr. Pérez Patient lives in an assisted living facility and is wheelchair bound Underwent diagnostic laparoscopy, IUD insertion with Dr. Pérez on 10/14/23. Endometriosis was noted on the bladder, culdesac, and left pelvic sidewall. No biopsies taken Patient states she had the IUD removed after surgery bc she was no longer having bleeding and didn't want any implants she doesn't need. Prior to surgery has occasional spotting and pain with other IUDs. She has had zero vaginal bleeding and minimal pain. She occasionally has pain in the mid pelvisbut overall manageable with tylenol. Patient is mostly bothered today by the hair on her chin and is hoping that a hysterectomy will fixthat as it helped for her mother. GI symptoms: none Urinary symptoms: none Sexual activity: no Prior Therapies: multiple IUD Imaging: The uterus measures 8.8 x 5.8 x 4.0 cm uterus. 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 Colonoscopy: cologuard ordered Aunt with breast cancer. Otherwise no family history of ovarian, uterine, colon or endometrial cancer. OBHx: x 1 Pertinent PMH: HTN, HLD, hypothyroid, Stage III CKD (baseline Cr 1.2-1.3), seizure disorder, h/o CVA at 25, CHF (normal stress test in 2022, echo EF 60%). MELQUIADES. Thrombocytopenia Pertient PSH: diagnostic laparoscopy PMHx, PSHx, SHx, Allergies, and Medications updated in [facility]. Past Medical History: Diagnosis Date Encounter for gynecological examination (general) (routine) without abnormal findings 01/29/2021 Pap test, as part of routine gynecological examination Epilepsy (Multi) GERD (gastroesophageal reflux disease) Immunization not carried out because of patient refusal Influenza vaccination declined Leg swelling 02/25/2023 Lumbar contusion 02/25/2023 Other conditions influencing health status Hepatic Failure Other conditions influencing health status Menarche Other conditions influencing health status History of vaginal delivery Pain of left lower extremity 02/25/2023 Pelvic and perineal pain 01/29/2021 Pelvic pain in female Pelvic and perineal pain 07/01/2021 Pelvic pain in female Pelvic and perineal pain 07/01/2021 Pelvic pain in female Personal history of diseases of the blood and blood-forming organs and certain disorders involving the immune mechanism History of anemia Personal history of other diseases of the circulatory system History of hypertension Personal history of other diseases of the circulatory system History of congestive heart failure Personal history of other diseases of urinary system History of chronic kidney disease Personal history of other medical treatment H/O mammogram Personal history of other medical treatment History of blood transfusion Personal history of other specified conditions History of seizure Thrombocytopenia (CMS-HCC) Unspecified kidney failure 04/08/2021 Renal failure 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 Very important you follow up with Dr. Chopra the neurologist on 03/16/2019. Weakness 12/01/2020 Past Surgical History: Procedure Laterality Date BREAST SURGERY 05/31/2013 Breast Surgery Reduction Procedure CT ANGIO NECK 05/09/2022 CT NECK ANGIO W AND WO IV CONTRAST 05/09/2022 [facility] CT HEAD ANGIO W AND WO IV CONTRAST 05/09/2022 CT HEAD ANGIO W AND WO IV CONTRAST 05/09/2022 [facility] OTHER SURGICAL HISTORY 01/30/2022 Intrauterine device placement OTHER SURGICAL HISTORY 08/04/2019 Breast reduction Allergies Allergen Reactions Azithromycin Unknown Codeine Unknown Erythromycin Base Unknown Hydrocodone-Acetaminophen Unknown Hydromorphone Unknown Neurontin [Gabapentin] Unknown Ondansetron Hcl Other Penicillins Unknown Phenytoin Unknown Promethazine Unknown Tramadol Unknown Current Outpatient Medications: acetaminophen (Tylenol 8 HOUR) 650 mg ER tablet, Take 1 tablet (650 mg) by mouth every 8 hours if needed for mild pain (1 - 3). Do not crush, chew, or split., Disp: , Rfl: albuterol 90 mcg/actuation inhaler, Inhale 2 puffs every 6 hours if needed., Disp: , Rfl: allopurinol (Zyloprim) 300 mg tablet, Take 1 tablet (300 mg) by mouth once daily., Disp: , Rfl: atorvastatin (Lipitor) 20 mg tablet, Take 1 tablet (20 mg) by mouth once daily at bedtime., Disp: ,Rfl: benzonatate (Tessalon) 200 mg capsule, Take 1 capsule (200 mg) by mouth if needed for cough. Do notcrush or chew., Disp: , Rfl: busPIRone (Buspar) 10 mg tablet, Take 1 tablet (10 mg) by mouth 3 times a day as needed., Disp: , Rfl: calcium carbonate (Tums) 200 mg calcium chewable tablet, Chew 1 tablet (500 mg) once daily., Disp: , Rfl: calcium carbonate-vitamin D3 600 mg-10 mcg (400 unit) tablet, Take 1 tablet by mouth 2 times a day., Disp: , Rfl: cyanocobalamin, vitamin B-12, (Vitamin B-12) 1,000 mcg tablet extended release, Take 1 tablet (1,000 mcg) by mouth once daily., Disp: , Rfl: divalproex (Depakote ER) 500 mg 24 hr tablet, Take 1 tablet (500 mg) by mouth 2 times a day., Disp:, Rfl: famotidine (Pepcid) 20 mg tablet, Take 1 tablet (20 mg) by mouth once daily., Disp: , Rfl: guaiFENesin (Humibid 3) 400 mg tablet, Take 1 tablet (400 mg) by mouth every 6 hours if needed (allergies)., Disp: , Rfl: levETIRAcetam (Keppra) 500 mg tablet, Take 1 tablet (500 mg) by mouth 2 times a day., Disp: , Rfl: levothyroxine (Synthroid, Levoxyl) 25 mcg tablet, Take 1 tablet (25 mcg) by mouth once daily., Disp: , Rfl: lidocaine (Lidoderm) 5 % patch, , Disp: , Rfl: lisinopril 20 mg tablet, Take 1 tablet (20 mg) by mouth 2 times a day., Disp: , Rfl: loratadine (Claritin) 10 mg tablet, Take 1 tablet (10 mg) by mouth once daily at bedtime., Disp: , Rfl: LORazepam (Ativan) 1 mg tablet, Take 2 tablet twice daily and 1 tab daily PRN, Disp: 200 tablet, Rfl: 0 magnesium hydroxide (Milk of Magnesia) 400 mg/5 mL suspension, Take 15 mL by mouth 2 times a day asneeded for constipation., Disp: , Rfl: magnesium oxide (Mag-Ox) 400 mg tablet, Take 1 tablet (400 mg) by mouth once daily., Disp: , Rfl: meclizine (Antivert) 25 mg tablet, Take 1-2 tablets (25-50 mg) by mouth 3 times a day as needed (otitis media)., Disp: , Rfl: potassium chloride ER (Micro-K) 10 mEq ER capsule, Take 2 capsules (20 mEq) by mouth twice a day., Disp: , Rfl: sertraline (Zoloft) 100 mg tablet, Take 1 tablet (100 mg) by mouth 2 times a day., Disp: 60 tablet,Rfl: 11 ibuprofen 600 mg tablet, Take 1.5 tablets (900 mg) by mouth every 8 hours if needed for moderate pain (4 - 6) for up to 30 doses., Disp: 20 tablet, Rfl: 0 methyl salicylate-menthol (Icy Hot) 29-7.6 % ointment ointment, Apply 1 Application topically every12 hours if needed., Disp: , Rfl: metoprolol tartrate (Lopressor) 25 mg tablet, Take 1 tablet (25 mg) by mouth 2 times a day., Disp: 60 tablet, Rfl: 11 primidone (Mysoline) 50 mg tablet, Take 2 tablets (100 mg) by mouth 2 times a day., Disp: , Rfl: sennosides-docusate sodium (Lani-Colace) 8.6-50 mg tablet, Take 2 tablets by mouth once daily as needed for constipation., Disp: , Rfl: Current Facility-Administered Medications: levonorgestrel (Mirena) 21 mcg/24 hours (8 yrs) 52 mg IUD, , intrauterine, Once, Matthew Pérez MD Social History Socioeconomic History Marital status: Spouse name: Not on file Number of children: Not on file Years of education: Not on file Highest education level: Not on file Occupational History Not on file Tobacco Use Smoking status: Former Types: Cigarettes Smokeless tobacco: Never Vaping Use Vaping status: Never Used Substance and Sexual Activity Alcohol use: Never Drug use: Never Sexual activity: Not Currently Other Topics Concern Not on file Social History Narrative Not on file Social Determinants of Health Financial Resource Strain: Not on file Food Insecurity: No Food Insecurity (03/04/2024) Received from [facility] Vital Sign Worried About Running Out of Food in the Last Year: Never true Ran Out of Food in the Last Year: Never true Transportation Needs: No Transportation Needs (03/04/2024) Received from [facility] PRAPARE - Transportation Lack of Transportation (Medical): No Lack of Transportation (Non-Medical): No Physical Activity: Not on file Stress: Not on file Social Connections: Not on file Intimate Partner Violence: Not At Risk (03/04/2024) Received from [facility] Humiliation, Afraid, Rape, and Kick questionnaire Fear of Current or Ex-Partner: No Emotionally Abused: No Physically Abused: No Sexually Abused: No Housing Stability: Low Risk (03/04/2024) Received from [facility] Housing Stability Vital Sign Unable to Pay for Housing in the Last Year: No Number of Places Lived in the Last Year: 1 Unstable Housing in the Last Year: No Family History Problem Relation Name Age of Onset Hypertension Mother Diabetes Mother Other (cardiac disorder) Mother Hypothyroidism Father Seizures Sister absence and GTC seizures Heart disease Other Hypothyroidism Other COPD Other Lupus Other systemic lupus erythematosus OB History No obstetric history on file. ROS: reviewed and negative PE:BP 118/68 Gen: NAD, in wheelchair Psych: AAOx3 Skin: no lesions Pulm: nonlabored breathing, normal respiratory effort Cards: normal peripheral perfusion Lymph: no LAD in axilla or groin GI: soft, non-tender, non-distended, no rebound/guarding, no masses :deferred A/P: Reema Shah is a 48 y.o. with possible finding of endometriosis on recent diagnostic laparoscopy - operative report and images reviewed. No fibroids noted. Normal appearing ovaries, tubes and bowel. Possible small focus of endometriosis implants, although no biopsies were taken and cannot say with certainty. - patient is currently asymptomatic. She has not had any vaginal bleeding since October and has minimal pain. - Reviewed that endometriosis is typically a condition stimulated by hormones and often significantly improves once in menopause due to lack of hormonal stimulation. Currently has minimal symptoms and a significant and complex medical history. Also lives in a SNF and wheelchair bound. -Discussed she is not a surgical candidate at this time given her medical history, functional limitations and lack of symptoms. Reviewed that she is also likely perimenopausal and will soon not have hormonal stimulation of endometriosis - if she desires treatment reviewed medical options for treatment including progesterone agents andgnrh analogues - patient currently is most bothered by facial hair growth and desired a hysterectomy for that reason. Discussed that a hysterectomy would not be curative for hair growth and I would not recommend surgery for this indication Patient currently has no migs needs and can follow up prn. Otherwise continue with annual care. Khalida Mtz MD Division of Minimally Invasive Gynecologic Surgery [facility] documented in this [facility] Work Phone: [phone]) 404-522506-18-2024 History of Present illness Narrative* Mejia Cullen MD - 04/04/2024 11:30 AM EDT Images from the original note were not included. [facility] [address] [place] [id number] Dept: [phone] Dept Loc: [phone] [facility] Physical Medicine and Rehabilitation Clinic Consultation for Reema Shah : 1975 Today's Date: 04/04/2024 PCP: Jeanie Ayala Patient was seen accompanied by living facility staff. Patient gave permission to discuss medical information with facility staff present. Referral Source: No ref. provider found Recall HPI: Reema Shah is a 48 y.o. female with past medical history of epilepsy (on Keppra and lorazepam), tremors, CKD, anxiety, HTN, GERD, hypothyroidism, obesity, psoriasis, TTP who reports with chief complaint of frequent falls. Interval History: Last seen 01/03/24. At this visit we discussed continuing PT and OT for frequent falls due to weakness, obtaining new power chair, and obtaining R shoulder xray for chronic shoulder pain. R shoulder xray normal. Patient was admitted to [facility] 03/04/24 with concern for seizure episodes while in ED for chest pain. Home antiepileptic medication levels were checked and Keppra was increased.Tremor was suspected to be due to custodial Depakote use and patient instructed to follow up with Neurology outpatient. Today, reports chief complaint of worsened tremor. Reports tremor has been worse since hospital admission reports shoulder pain has resolved spontaneously. Symptoms: Frequent falls. Attributes to LUE and LLE weakness and LE shaking. Unclear etiology for Lhemiplegia - patient reports she was told she had a slight stroke in the past but no chronic focal findings on CT Brains. Patient cannot get MRI due to metal in abdomen. Frequent visits to ED due to falls with headstrike and RUE injuries. Most fall situations documented involve reaching for something or transferring. CT heads and radiographs have thus far been negative. Also endorses vertigo ifshe bends over. Manner of onset: Reports symptoms began after a 1993 head injury. Function: Mostly using WC for mobility. Only ambulates with walker short distances in her room to get to bathroom. Ambulating worsens pain in low back and bilateral knees and calves. Has powerchair. Lives in assisted living facility ([facility]). Moving to [facility] next month. Workup: CT Brain, CT C and L spine Treatments tried: PT in 2022 - did see improvement. PMH: Past Medical History: Diagnosis Date Anxiety Chronic kidney disease Epilepsy (HCC) Essential hypertension Gastro-esophageal reflux disease without esophagitis Hypokalemia Hypothyroidism Obesity Personal history of urinary (tract) infections Psoriasis Repeated falls Thrombocytopenia (HCC) PSH: Past Surgical History: Procedure Laterality Date BREAST REDUCTION Review of Systems: General: Denies fevers, chills, weight loss, weight gain Skin: Denies rashes ulcerations or lesions HEENT: Denies tinnitus, vertigo, blurry vision, headache Cardio: Denies chest pain, palpitations or edema Respiratory: Denies cough, sob, wheezing GI: Denies nausea, vomiting, constipation, diarrhea, abdominal pain, history of GI bleed : Denies incontinence, dysuria, frequency, urgency MSK: as per HPI Neuro: as Per HPI Psychiatric: Denies any change in mood, anxiety or depression Medications: Current Outpatient Medications Medication Sig Dispense Refill acetaminophen (Tylenol) 500 MG tablet Take by mouth. albuterol 108 (90 Base) MCG/ACT inhaler allopurinol (Zyloprim) 300 MG tablet Take 300 mg by mouth in the morning. amLODIPine (Norvasc) 10 MG tablet Take 10 mg by mouth in the morning. atorvastatin (Lipitor) 20 MG tablet benzonatate (Tessalon) 200 MG capsule Take by mouth. busPIRone (Buspar) 10 MG tablet Calcium + Vitamin D3 600-10 MG-MCG tablet clotrimazole-betamethasone (Lotrisone) cream Cyanocobalamin ER 1000 MCG tablet controlled-release Take 1,000 mcg by mouth in the morning. Diclofenac Sodium (Voltaren) 1 % gel Apply topically every 12 hours. divalproex (Depakote ER) 250 MG 24 hr tablet divalproex (Depakote ER) 500 MG 24 hr tablet Take 500 mg by mouth. divalproex (Depakote ER) 500 MG 24 hr tablet Take 1 tablet (500 mg) by mouth 2 times daily. 30 tablet 2 famotidine (Pepcid) 20 MG tablet flurbiprofen (Ansaid) 100 MG tablet Take by mouth every 8 hours as needed. guaiFENesin (Humibid 3) 400 MG tablet Take 400 mg by mouth every 6 hours as needed. levETIRAcetam (Keppra) 500 MG tablet 2 times daily. levothyroxine (Synthroid, Levoxyl) 25 MCG tablet lisinopril 20 MG tablet loperamide (Imodium A-D) 2 MG tablet Take by mouth as needed for diarrhea. loratadine (Claritin) 10 MG tablet Take 10 mg by mouth. LORazepam (Ativan) 1 MG tablet Take 2 mg by mouth. magnesium oxide (Mag-Ox) 400 MG tablet Take 400 mg by mouth in the morning. meclizine (Antivert) 25 MG tablet Take 25 mg by mouth 3 times daily as needed. metoprolol tartrate (Lopressor) 25 MG tablet 2 times daily. potassium chloride ER (Micro-K) 10 MEQ ER capsule primidone (Mysoline) 50 MG tablet Take 50 mg by mouth in the morning and 50 mg in the evening. senna-docusate (Lani-Colace) 8.6-50 MG tablet Take 2 tablets by mouth Nightly as needed. sertraline (Zoloft) 100 MG tablet Take 100 mg by mouth in the morning and 100 mg in the evening. No current facility-administered medications for this visit. Allergies: Allergies Allergen Reactions Gabapentin Nausea And Vomiting and Unknown Hydrocodone-Acetaminophen Other and Unknown Vomiting Morphine Other, Unknown and Nausea And Vomiting Vomiting Ondansetron Other and Nausea And Vomiting Vomiting Other Phenytoin Unknown Promethazine Other, Unknown and Nausea And Vomiting Sick Acetaminophen Rash Other reaction(s): Rash Azithromycin Rash, Unknown and Nausea And Vomiting Codeine Other, Rash, Unknown and Nausea And Vomiting Vomiting Erythromycin Rash and Unknown Erythromycin Base Rash and Unknown Hydrocodone Rash and Unknown Hydromorphone Rash and Unknown Penicillins Rash and Unknown Tramadol Rash and Unknown Social History: Denies tobacco / alcohol /illicit drug use Work Status: Not currently working or driving. Family History: Family History Problem Relation Name Age of Onset Heart disease Mother Parkinson's Disease Mother Dementia Mother Thyroid disease Father Asthma Sister Seizures Sister Asthma Sister Asthma Brother No Known Problems Maternal Grandmother No Known Problems Maternal Grandfather No Known Problems Paternal Grandmother No Known Problems Paternal Grandfather No Known Problems Daughter Physical Examination: VITALS: There were no vitals filed for this visit. GEN APPEARANCE: Pleasant, well developed, well nourished in no acute distress; PSYCH: Normal mood and affect HEENT: Normocephalic; EOMI; MMM RESP: Breathing non-labored CARDIO: Capillary refill intact in distal extremities SKIN: lesion noted: none MSK: R Shoulder exam + for Apley maneuver and increased pain with IR. Neer, Hawkin, Empty can, Speeds, Yeargason, load and shift all negative at the R shoulder . Intact Passive ROM at R shoulder. NEURO: Motor: Tone was normal in all 4 limbs. No cogwheel rigidity in bilateral UE RUE: Shoulder Abduction: 5/5, Biceps: 4/5, Wrist extension: 5/5, Triceps: 4/5, Finger flexors: 5/5,Finger extensors: 4/5 RLE: Hip flexors: 4/5, Knee extension: 5/5, ankle DF: 5/5, ankle PF: 5/5 LUE:Shoulder Abduction: 5/5, Biceps: 4/5, Wrist extension: 4/5, Triceps: 5/5, Finger flexors: 5/5, Finger extensors: 4/5 LLE: Hip flexors: 4/5, Knee extension: 5/5, ankle DF: 5/5, ankle PF: 5/5 Cerebellar: BRODY's: mildly slow bilaterally Mild swaying with Romberg Labs: No results found for: WBC, HGB, HCT, MCV, PLT No results found for: GLUCOSE, CALCIUM, NA, K, CO2, CL, BUN, CREATININE IMAGING/PROCEDURES: R shoulder xray 01/04/24 (report only) The glenohumeral joint is intact. Acromioclavicular and coracoclavicular joints are also normal. Noshoulder separation, fracture, or dislocation is seen. Recent Holter Monitor and Nuclear Stress Test at [facility] 10/05/23 for pre-op testing were negative. CT Head 09/16/23 (report only, [facility]) The ventricles, cisterns and sulci are prominent, consistent with mild diffuse volume loss. Areas of white matter low attenuation are nonspecific but likely related to chronic microvascular disease. There is intracranial atherosclerosis. Hill-white differentiation is preserved. No acute intracranial hemorrhage or mass effect. No midline shift. Patent basal cisterns. No extraaxial fluid collections. The calvaria is intact. Unchanged findings of hyperostosis frontalis interna. The visualized paranasal sinuses and mastoid air cells are clear. CT C Spine 11/17/23 (report only) Fractures: There is no evidence for an acute fracture of the cervical spine. Vertebral Alignment: No posttraumatic malalignment. There is overall straightening of the normal cervical lordosis, presumed secondary to patient positioning or spasm. Craniocervical Junction: The odontoid process and craniocervical junction are intact. Vertebrae/Disc Spaces: Multilevel disc space narrowing. Multilevel facet arthropathy Multilevel uncovertebral hypertrophy.Multilevel osteophyte formation. Prevertebral/Paraspinal Soft Tissues: The prevertebral and paraspinal soft tissues are unremarkable. CT T&L Spine 11/17/23 Report only Thoracic spine: The alignment is anatomic. There is no fracture or traumatic subluxation. The vertebral body heights are well maintained. Disc spaces are preserved. No significant central canal stenosis is demonstrated. The neural foramina are patent throughout. The paravertebral soft tissues are within normal limits. There are infiltrates posteriorly in both lungs most likely related to dependent atelectasis or fibrosis. Lumbar spine: The alignment is anatomic. There is no fracture or traumatic subluxation. The vertebral body heights are well maintained. Disc spaces are preserved. No significant central canal stenosis is demonstrated. The neural foramina are patent throughout. The paravertebral soft tissues are within normal limits. There is a Linx present. IMPRESSION: Reema Shah is a 48 y.o. female with past medical history of epilepsy (on Keppra and lorazepam), tremors, MELQUIADES and CPAP, CKD3, anxiety, HTN, GERD, hypothyroidism, obesity, psoriasis, TTP who reports with chief complaint of frequent falls and imbalance. These appear to be due to LE weakness from deconditioning and low back/MSK pain as well as severe intention tremor in all 4 limbs. PLAN: - Doing 10 days of PT and OT quarterly at [facility] [place] - Continue to pursue new powerchair. [facility] Face to face evaluation performed by this provider 04/04/24. New power chair eval: Custom fitted power chair. Current chair is non-functional due to disrepair and over 5 years old. Mobility impairment due to LE weakness, backpain and intention tremor of legs. Patient unable to safely use a cane, walker or wheelchair due toweakness, spasticity and pain. Mobility impairments cause limitations in daily mobility and activities of daily living. - Derm referral for Psoriasis per patient request - Messaged Dr. Chopra Neurology regarding new Ativan prescription, although this medication is stillon her facility medication list - Provided number to schedule with Epilepsy Neurology and forwarded to clinical coordinator - Followup in 3 months - The plan was discussed with the patient/family and they report full understanding. Mejia Cullen MD Physical Medicine and Rehabilitation documented in this [facility]06-18-2024 Instructions* Patient Instructions* Mejia Cullen MD - 04/04/2024 11:30 AM EDT Call [phone] to schedule with seizure specialist Dr. Hernandez. documented in this [facility]05-21-2024 NoteHMS DISCHARGE SUMMARY -- [facility] Reema Shah Admitted: 03/04/2024 Discharge Date: 03/07/2024 12:55 PM PCP Handoff Recommended Outpatient Testing Follow up with primary neurologist consider repeat emu stay for spell capture. Keppra dose was increased Results Pending At Discharge none Clinical Summary Reema Shah is a 48 y.o. female patient of Jyoti Gupta MD with history of hypertension with hyperlipidemia and hypothyroidism, known for chronic kidney disease stage III with baseline creatinine 1.2-1.3 and seizure disorder is maintained on Keppra and Depakote, history of thrombocytopenia and intentional tremor, peripheral vascular disease and previous stroke, fatty liver has history of congestive heart failure with preserved systolic function ejection fraction at 59% according to stress test in December 2028 and gout is here due to jerking movements in upper extremities and noticed rise in the creatinine on arrival up to 1.5, noticed myoclonic jerks in upper extremities while in the emergency department Myoclonic jerks Seizure disorder Maintained on Keppra and Depakote. Presented with a concern of myoclonic jerks in upper extremities Evaluated by neurology, recommendations appreciated There is some suspicion for PNES Per neurology, cannot get MRI due to metal in abdomen. A DANISH scan, for tremors, back in 2016, was normal. Presumably these are tremors/shakes from longstanding Depakote exposure; a functional component is possible although I think the underlying tremor is definitely organic. Depakote level is on the lower side, around 30, which appears to be near her baseline of 40 or so. Keppra level pending but drawn after loading dose so will be unreliable. Continue current Depakote dose, increase Keppra to 75 mg twice daily Continue primidone Follow-up with primary neurologist outpatient CKD stage III POA No evidence of RAÚL. Over the past few years, creatinine fluctuated between 1.3-1.5. Creatinine on presentation 1.5. Hypertension Chronic diastolic congestive heart failure Norvasc and lisinopril initially held due to soft blood pressure. Now resumed. Continue metoprolol. Hypothyroidism On thyroid replacement therapy. Will continue. Hyperlipidemia On statin therapy. Will continue Depression and anxiety On Zoloft and taking benzodiazepines. Will continue History of gout and hyperuricemia On allopurinol. Will continue Obstructive sleep apnea On CPAP Discharge Medications Discharge Medications Modified Medications Details albuterol 2.5 mg /3 mL (0.083 %) nebulizer solution Commonly known as: PROVENTIL What changed: Another medication with the same name was removed. Continue taking this medication, and follow the directions you see here. Take 3 mL (2.5 mg total) by nebulization every 6 (six) hours as needed for shortness of breath . levETIRAcetam 750 MG tablet Commonly known as: Keppra What changed: medication strength how much to take Take 1 (one) tablet (750 mg total) by mouth 2 (two) times a day . Quantity: 60 tablet primidone 50 MG tablet Commonly known as: MYSOLINE What changed: Another medication with the same name was removed. Continue taking this medication, and follow the directions you see here. Take 2 (two) tablets (100 mg total) by mouth 2 (two) times a day For seizures . Medications To Continue Details acetaminophen 325 MG tablet Commonly known as: TYLENOL Take 2 (two) tablets (650 mg total) by mouth every 8 (eight) hours as needed for pain . allopurinoL 300 MG tablet Commonly known as: ZYLOPRIM Take 1 (one) tablet (300 mg total) by mouth daily . amLODIPine 10 MG tablet Commonly known as: NORVASC Take 1 (one) tablet (10 mg total) by mouth daily for 5 days . Quantity: 5 tablet * artificial tears(hypromellose) 0.5 % ophthalmic solution Commonly known as: ISOPTO TEARS Administer 1 (one) drop to both eyes every hour as needed . * artificial tears(hypromellose) 0.5 % ophthalmic solution Commonly known as: ISOPTO TEARS Administer 1 (one) drop to both eyes at bedtime . atorvastatin 20 MG tablet Commonly known as: LIPITOR Take 1 (one) tablet (20 mg total) by mouth at bedtime for 5 days . Quantity: 5 tablet benzonatate 200 MG capsule Commonly known as: TESSALON Take 1 (one) capsule (200 mg total) by mouth every 8 (eight) hours as needed for cough . bisacodyL 10 mg suppository Commonly known as: DULCOLAX Insert 1 (one) suppository (10 mg total) into the rectum daily as needed for constipation Reasons: constipation. busPIRone 10 MG tablet Commonly known as: BUSPAR Take 1 (one) tablet (10 mg total) by mouth 3 (three) times a day for 5 days . Quantity: 15 tablet calcium carbonate-vitamin D3 600 mg-10 mcg (400 unit) per tablet Take 1 (one) tablet by mouth 2 (two) times a day . cyanocob (more content not included)...[facility]05-20-2024 [facility] PROGRESS NOTE Assessment and Plan Reema Shah is a 48 y[facility] with history of hypertension with hyperlipidemia and hypothyroidism, known for chronic kidney disease stage III with baseline creatinine 1.2-1.3 and seizure disorder is maintained on Keppra and Depakote, history of thrombocytopenia and intentional tremor, peripheral vascular disease and previous stroke, fatty liver has history of congestive heart failure with preserved systolic function ejection fraction at 59% according to stress test in December 2028 and gout is here due to jerking movements in upper extremities and noticed rise in the creatinine on arrival up to 1.5, noticed myoclonic jerks in upper extremities while in the emergency department Myoclonic jerks Seizure disorder Maintained on Keppra and Depakote. Presented with a concern of myoclonic jerks in upper extremities Etiology is not clear and concern of Depakote toxicity, will check on Depakote and Keppra levels, neurology consult was placed Frequent neurochecks Consult neurology Discussed with neurology. Per neurology, cannot get MRI due to metal in abdomen. A DANISH scan, for tremors, back in 2016, was normal. Presumably these are tremors/shakes from longstanding Depakote exposure; a functional component is possible although I think the underlying tremor is definitely organic. Depakote level is on the lower side, around 30, which appears to be near her baseline of 40 or so. Keppra level pending but drawn after loading dose so will be unreliable. Will need outpatient follow up with neurology CKD stage III POA No evidence of RAÚL. Over the past few years, creatinine fluctuated between 1.3-1.5. Creatinine on presentation 1.5. Continue to monitor. Hypertension Chronic diastolic congestive heart failure Norvasc and lisinopril initially held due to soft blood pressure. Now resumed. Continue metoprolol. Hypothyroidism On thyroid replacement therapy. Will continue. Hyperlipidemia On statin therapy. Will continue Depression and anxiety On Zoloft and taking benzodiazepines. Will continue History of gout and hyperuricemia On allopurinol. Will continue Obstructive sleep apnea On CPAP Resolved acute medical issues Discharge Planning Medically Stable for Discharge Date: 03/06/2024 Patient requires continued hospitalization due to: Neurology evaluation Discharge Location: [facility] Quality Measures DVT Prophylaxis: heparin subcutaneous Lyon Catheter: absent Code Status full unverified Primary Contact Information Subjective Evaluated patient bedside. No new concerns. Feels improvement. Cleared for discharge by neurology. However, she is scared of going to her facility. Discussed that we can allow 1 more day for observation. Objective BP (!) 160/85 (BP Location: Left arm, Patient Position: Lying) Pulse 70 Temp 97.7 degrees F (36.5 degrees C) (Oral) Resp 18 Ht 4' 7 Wt 72.6 kg (160 lb) SpO2 94% BMI 37.19 kg/m Physical Examination General Appearance: alert; chronically ill appearing; in no acute distress HEENT: Head- normocephalic; Eyes- EOMI, sclera anicteric; Cardiovascular: regular rate and rhythm; normal S1, S2; no murmurs, rubs, clicks or gallops; peripheral edema absent Respiratory: lungs clear to auscultation; without wheezes, rales or rhonchi; on room air Abdomen: soft, non-tender, non-distended Neurological: normal speech; no focal findings or movement disorder noted Musculoskeletal: no significant deformity or tenderness to palpation Skin: normal coloration Psych: normal mood and affect AUTHENTICATED BY CATALINA OLIVEIRA, ON 03/06/2024 12:01:[address] [place] [address] 03-06-2024 NoteNeurology Follow Up Note [facility] Date of Service: 03/06/24 Service Type: Follow up, neurology Patient: Reema Shah Date of : 1975 (48 y.o.) Referring Provider: Refer to consult order in electronic medical record Assessment ASSESSMENT: Reema Shah is a 48 y.o. female who presented to [facility] on 03/04/2024 with jerking movements Patient with history of epilepsy, on Depakote and Keppra, presented with myoclonic jerking movements. Reportedly had some seizure activity in the ER which is not described in the chart; patient reports that she had an episode where her arms were shaking and she couldn't talk, but was able to hear what was going on around her. She says she bit her tongue, although no laceration is noted on exam. Her neuro exam is marked by poor effort as well as diffuse intention tremors and myoclonus, which have somewhat improved since arrival. She has had issues with chronic tremors and shakes for many years, which are probably at least partially from longstanding Depakote exposure. Previous attempt to wean off Depakote led to breakthrough seizure based on chart review. Two prior EEGs here, from 2019 and 2016, were normal apart from mild generalized slowing. She reports having a prior EMU stay in [place] a few years ago, but I do not see any sign of that in the records from [facility], , or [facility], which are the only places I know of with EMU capacity in the [facility]. She says it characterized her seizures as grand mal which of course would not be terminology used by neurology anytime in the last couple of decades. There is, however, a chart history of pseudoseizures, which fits with her description of bilateral convulsions with preserved consciousness. I am highly suspicious for this but cannot prove it without confirming on EEG. Head CTs have been normal; cannot get MRI due to metal in abdomen. A DANISH scan, for tremors, back in 2017, was normal. Presumably these are tremors/shakes from longstanding Depakote exposure; a functional component is possible although I think the underlying tremor is definitely organic. Depakote level is on the lower side, around 30, which appears to be near her baseline of 40 or so. Previously has been on topiramate. Allergy to phenytoin reported. GI intolerance to gabapentin. I would increase her Keppra back to 750mg BID and continue her current Depakote dose. I would defer to her existing neurologist as to whether she needs a repeat EMU stay for spell capture since I don't have any records of such. Monitor her kidney and liver function overnight and anticipate discharge on 03/06 if remaining stable. Diagnoses: Epilepsy Myoclonic jerks Admitted with these risk variables:None. Please see assessment and plan for further details. PLAN: - continue Depakote ER 500mg BID, primidone 100mg BID. Increased Keppra to 750mg BID. - PT/OT - seizure precautions - patient does not drive - eventual follow up with existing neurologist - OK to discharge whenever medically cleared. - neurology will sign off at this time. However, please do not hesitate to contact us with any questions, concerns, or changes in exam. Marzena Gresham MD Staff Neurologist [facility] [id number], [facility] [id number] Clinic 03/06/24 Parts of this note may have been dictated using [employer], a speech-recognition software. Syntax errors and sound-alike substitutions which may escape proofreading could be present. In such instances, the actual meaning can be extrapolated from the context. Subjective SUBJECTIVE: Chief Complaint/Reason for Consult: myoclonus History of Present Illness: Reema Shah is a 48 y.o. female who presented on 03/04/2024 for myoclonus. Neurology is consulted for the same. Patient with history of epilepsy since 1993, characterized by GTC activity. Follows with Dr. Gillette in [place]. Has been using Depakote and Keppra for a few years. Also on primidone as she has longstanding tremors going back to at least 2016. Previously on topiramate for seizure and migraines but has been off for years. GI intolerance to gabapentin. Did not tolerate phenytoin. Previous EEGs in 2019 and 2016 were normal. Head CTs have been normal. Says she can't get MRI due to metal in abdomen from a surgery, though whether that is actually not safe is unclear. She reports having 2 seizures in the ER. No chart record of such. She says they were grand mal and she bit her tongue, though tongue appears normal. She describes her seizures as her arms curl inward and start shaking, she can hear what's going on but cannot speak. She says she got an EMU stay years ago in [place] and it described her seizures as grand mal. There is a chart history of pseudose (more content not included)...[facility]05-19-2024 NoteHMS PROGRESS NOTE Assessment and Plan Reema Shah is a 48 y.[facility]. [facility] with history of hypertension with hyperlipidemia and hypothyroidism, known for chronic kidney disease stage III with baseline creatinine 1.2-1.3 and seizure disorder is maintained on Keppra and Depakote, history of thrombocytopenia and intentional tremor, peripheral vascular disease and previous stroke, fatty liver has history of congestive heart failure with preserved systolic function ejection fraction at 59% according to stress test in December 2028 and gout is here due to jerking movements in upper extremities and noticed rise in the creatinine on arrival up to 1.5, noticed myoclonic jerks in upper extremities while in the emergency department Myoclonic jerks Seizure disorder Maintained on Keppra and Depakote. Presented with a concern of myoclonic jerks in upper extremities Etiology is not clear and concern of Depakote toxicity, will check on Depakote and Keppra levels, neurology consult was placed Frequent neurochecks Consult neurology Discussed with neurology. Per neurology, cannot get MRI due to metal in abdomen. A DANISH scan, for tremors, back in 2016, was normal. Presumably these are tremors/shakes from longstanding Depakote exposure; a functional component is possible although I think the underlying tremor is definitely organic. Depakote level is on the lower side, around 30, which appears to be near her baseline of 40 or so. Keppra level pending but drawn after loading dose so will be unreliable. Will need outpatient follow up with neurology CKD stage III POA No evidence of RAÚL. Over the past few years, creatinine fluctuated between 1.3-1.5. Creatinine on presentation 1.5. Continue to monitor. Hypertension Norvasc and lisinopril initially held due to soft blood pressure. Now resumed. Continue metoprolol. Hypothyroidism On thyroid replacement therapy. Will continue. Hyperlipidemia On statin therapy. Will continue Depression and anxiety On Zoloft and taking benzodiazepines. Will continue History of gout and hyperuricemia On allopurinol. Will continue Obstructive sleep apnea On CPAP Resolved acute medical issues Discharge Planning Medically Stable for Discharge Date: 03/06/2024 Patient requires continued hospitalization due to: Neurology evaluation Discharge Location: [facility] Quality Measures DVT Prophylaxis: heparin subcutaneous Lyon Catheter: absent Code Status full unverified Primary Contact Information Subjective Evaluated the patient. No new concerns. Discussed the plan. All questions answered. Possible discharge tomorrow. Objective BP (!) 149/83 Pulse 72 Temp 98.4 degrees F (36.9 degrees C) (Oral) Resp 15 Ht 4' 7 Wt 72.6 kg (160 lb) SpO2 92% BMI 37.19 kg/m Physical Examination General Appearance: alert; chronically ill appearing; in no acute distress HEENT: Head- normocephalic; Eyes- EOMI, sclera anicteric; Throat- mucous membranes moist Cardiovascular: regular rate and rhythm; normal S1, S2; no murmurs, rubs, clicks or gallops; peripheral edema absent Respiratory: lungs clear to auscultation; without wheezes, rales or rhonchi; on room air Abdomen: soft, non-tender, non-distended Neurological: normal speech; no focal findings or movement disorder noted Musculoskeletal: no significant deformity or tenderness to palpation Skin: normal coloration Psych: normal mood and affect AUTHENTICATED BY CATALINA OLIVEIRA, ON 03/05/2024 13:51:[address] [place] [address] 03-04-2024 NoteHMS HISTORY AND PHYSICAL -- [facility] Patient Name: Reema Shah : 1975 MR #: [id number] Admit Date: 03/04/2024 Physicians: Jyoti Gupta MD (Family); Jyoti Gupta* (Referring) Reema Shah is a 48 y.o. female patient of Jyoti Gupta MD with history of hypertension with hyperlipidemia and hypothyroidism, known for chronic kidney disease stage III with baseline creatinine 1.2-1.3 and seizure disorder is maintained on Keppra and Depakote, history of thrombocytopenia and intentional tremor, peripheral vascular disease and previous stroke, fatty liver has history of congestive heart failure with preserved systolic function ejection fraction at 59% according to stress test in December 2028 and gout is here due to jerking movements in upper extremities and noticed rise in the creatinine on arrival up to 1.5, noticed myoclonic jerks in upper extremities while in the emergency department Jerky movements Concern of myoclonic jerks in upper extremities Etiology is not clear and concern of Depakote toxicity, will check on Depakote and Keppra levels, neurology consult was placed Frequent neurochecks Seizure disorder Is maintained on Keppra and Depakote Acute kidney injury Prerenal azotemia hemodynamics mediated and concern of NSAIDs induced nephropathy Tenuous blood pressure on arrival will hold antihypertensives including Norvasc and lisinopril, given IV fluid bolus on arrival to the emergency department will continue IV hydration Send for urinalysis and protein creatinine ratio Renal ultrasound Hold ibuprofen Hypertension Holding Norvasc and lisinopril, on metoprolol Will monitor the trend of blood pressure And check orthostatic vitals Hypothyroidism On thyroid replacement therapy Check TSH level Hyperlipidemia On statin therapy Depression and anxiety On Zoloft and taking benzodiazepines History of gout and hyperuricemia On allopurinol Obstructive sleep apnea On CPAP Residence prior to admission: house or apartment Was patient transferred from outlying hospital or ED no Quality Measures DVT Prophylaxis: heparin subcutaneous Lyon Catheter: absent Medication Reconciliation: Verified Admitted with these risk variables:Acute Kidney Injury. Please see assessment and plan for further details. Estimated Date of Discharge greater than 2 midnights Code Status Full Code; code status verified on 03/04/2024 Chief Complaint jerky movements History of Present Illness Reema Shah is a 48 y.o. female patient of [facility], Jyoti Maharaj MD with history of hypertension with hyperlipidemia and hypothyroidism, known for chronic kidney disease stage III with baseline creatinine 1.2-1.3 and seizure disorder is maintained on Keppra and Depakote, history of thrombocytopenia and intentional tremor, peripheral vascular disease and previous stroke, fatty liver has history of congestive heart failure with preserved systolic function ejection fraction at 59% according to stress test in December 2028 and gout is here due to jerking movements in upper extremities and noticed rise in the creatinine on arrival up to 1.5, presenting to emergency room with chief complaint of I been having many seizures. Patient states sincethis morning she is having recurrent seizures lasting only few seconds. On arrival she is noted to having severe twitching of her facial muscles as well as the upper extremity and upper torso muscles that is premature constant but quitting for few seconds at a given time before they restarted. Patient denies any trauma or fall. Patient does not admit to headache visual change or focal weakness. He denies fever chills or dysuria or diarrhea or vomiting. She states this activity is not consistent with her typical seizures. She states she is on multiple seizure medications including Depakote, levetiracetam and another antiseizure medication the name of which she does not recall. Past Medical History Past Medical History: Diagnosis Date Acquired thrombocytopenia (HCC) [facility]/Lopez Shaikh Acute kidney injury (HCC) 05/22/2018 [facility]/Jonatan Chiu DO Anxiety Arm abrasion 06/19/2019 INFO GAINED FROM: /CONFUCIANIST ED VISIT NOTE --- AC GAO MD Calcaneal spur of right foot 2016 Documented on x-ray CKD (chronic kidney disease) Congestive heart failure (CHF) ([facility]) [facility]Lopez Shaikh Contusion, hip 06/19/2019 INFO GAINED FROM: /CONFUCIANIST ED VISIT NOTE --- AC GAO MD Depression Epilepsy ([facility]) 08/06/2011 [facility]- Dr. Chopra Epilepsy ([facility]) 1993 Facet degeneration of lumbar region 10/14/2018 [facility]/Jono ALEXIS, Moi Mild facet degenerative changes seen in the lower lumbar spine Fatty liver [facility]/Joe Mendieta MD Mild fibrofatty changes of the liver Fluid colle (more content not included)...[facility]04-19-2024 History of Present illness Narrative* Litzy Arnold LPN - 02/04/2024 9:30 AM EDT Patient desires to establish care. Reports history of endometriosis. Is interested in a hysterectomy.Record form residential scanned into media. * Olinda Luna MD - 02/04/2024 9:30 AM EDT BRANDEN Shah is a 48 y.o. female who presents today for concerns including EstablishCare. Patient came in to discuss getting a hysterectomy. She reported that her previous [employer] Doctor had recommended that she get a hysterectomy secondary to endometriosis. Off note, there were no vp of product records on presentation. She did not get the surgery with her previous doctor as she relocated. Patient is currently asymptomatic She reported that she had a pap smear in October of this year. No other concerns reported at this time. LMP: No LMP recorded (lmp unknown). No results found for: PAPSMEAR OB HISTORY: OB History Para Term AB Living 6 1 1 5 1 SAB IAB Ectopic Molar Multiple Live Births 5 1 # Outcome Date GA Lbr Gt/2nd Weight Sex Delivery Anes PTL Lv 6 Term 1996 F Vag-Spont ZHENG 5 SAB 4 SAB 3 SAB 2 SAB 1 SAB HISTORY/ALLERGIES Allergies Allergen Reactions Acetaminophen Other reaction(s): Rash Azithromycin Other Reaction(s): Unknown Codeine Other Reaction(s): Other (See Comments), Unknown Vomiting Erythromycin Other Reaction(s): Unknown, Unknown Gabapentin Other Reaction(s): GI Intolerance, Unknown Hydrocodone-Acetaminophen Other Reaction(s): Other (See Comments), Unknown Vomiting Hydromorphone Other Reaction(s): Unknown Morphine Other Reaction(s): Other (See Comments) Vomiting Ondansetron Other Reaction(s): Other Vomiting Phenytoin Other Reaction(s): Unknown Promethazine Other Reaction(s): Other (See Comments), Unknown Sick Tramadol Other Reaction(s): Unknown Penicillins Rash Other Reaction(s): Unknown No past medical history on file. No past surgical history on file. Social History Tobacco Use Smoking status: Never Smokeless tobacco: Never Vaping Use Vaping status: Never Used Substance Use Topics Alcohol use: Never Drug use: Never History reviewed. No pertinent family history. Current Outpatient Medications: busPIRone 10 MG tablet, , Disp: , Rfl: Calcium + Vitamin D3 600-10 MG-MCG tablet, , Disp: , Rfl: LORazepam 1 MG tablet, Take 1 tablet by mouth Every morning as needed., Disp: , Rfl: Albuterol (2.5 MG/3ML) 0.083% inhalation solution, Inhale 3 mL Every 6 hours as needed., Disp: , Rfl: Albuterol 108 (90 Base) MCG/ACT Aero Soln inhaler, Inhale 2 puffs Every 6 hours as needed., Disp: ,Rfl: Allopurinol 300 MG tablet, Take 1 tablet by mouth daily., Disp: , Rfl: Atorvastatin 20 MG tablet, Take 1 tablet by mouth Every night., Disp: , Rfl: bisacodyl 10 MG Suppository suppository, Insert 1 suppository rectally Every morning as needed., Disp: , Rfl: Cyanocobalamin 1000 MCG Tab CR, Take 1 tablet by mouth daily., Disp: , Rfl: Divalproex 500 MG tablet ER, Take 1 tablet by mouth Twice daily., Disp: , Rfl: famotidine 10 MG tablet, Take 2 tablets by mouth daily., Disp: , Rfl: Levothyroxine 25 MCG tablet, Take 1 tablet by mouth., Disp: , Rfl: Lisinopril 20 MG tablet, Take 1 tablet by mouth daily., Disp: , Rfl: LORazepam 2 MG tablet, Take 1 tablet by mouth., Disp: , Rfl: ROS Review of Systems Constitutional: Negative. HENT: Negative. Eyes: Negative. Respiratory: Negative. Cardiovascular: Negative. Gastrointestinal: Negative. Genitourinary: Negative. Musculoskeletal: Negative. Skin: Negative. Neurological: Negative. Psychiatric/Behavioral: Negative. All other systems reviewed and are negative. EXAM BP 123/83 (BP Location: Right arm, BP Position: Sitting) Pulse 69 Smoking Status Never Physical Exam Diagnosis/Plan: Reema was seen today for establish care. Diagnoses and all orders for this visit: Encounter to establish care Given that patient came in to discuss getting a hysterectomy, I inquired from her how she was diagnosed with endometriosis and her description was consistent with histologic diagnosis. I shared with patient that given her co-morbid conditions, managing endometriosis surgically will not be my go to.I shared with patient that management with a LARC has been a success for me in the past. Plus, patient shared that she has used the IUD in the past with no periods: she reported that she had one placed recently and only had it for 1 week as she was bleeding the entire time. I shared with patient that given that I do not have any [employer] [facility] records to reference at this time, I cannot discuss doing a hysterectomy. Patient is not symptomatic as she denied any pelvic pain; has not had a period since October. I shared with her that when I get her records and review them, I can make a referral to a tertiary center if she is still considering a hysterectomy or we can mange it medically. There is also that chance of no intervention given that she is asymptomatic, and has not had a period for the last 3 months; perimenopause? Gr[employer] s\hared amparo she was going to make sure that we get her [employer] records. Answered all of patient's questions and she verbalized understanding Shared decision making; patient in agreement. Total time spent with this patient was approximately 30 minutes. Time spent: 30 (LVL3=20, LVL4=30, LVL5=40) On preparation for patient visit (reviewing previous chart, current medical records, previous history, exam, testing, procedures, and medications). Face to face encounter obtaining history from patient/family/caregiver, independent interpreting of results (tests, labs, procedures, imaging), and communicating and explaining results. Coordination of care, preparing and printing discharge instructions, and any educational material. Documenting clinical information in the electronic health record, reviewing OARRS as needed Olinda Luna MD 02/04/2024 documented in this encounterA[facility] Telephone encounter Note* Telephone Encounter - Kelly Wilkerson MA - 01/04/2024 9:31 AM EDT This was sent to the wrong pool. [id number] Miscellaneous Notes* Telephone Encounter - Kelly Wilkerson MA - 01/04/2024 9:31 AM EDT This was sent to the wrong pool. * Telephone Encounter - Paige Araya - 01/03/2024 5:18 PM EDT Name of caller: Nat Contact phone number: [phone] Relationship to Patient: [facility] Provider: Jamila Practice: Neuro Chief Complaint/Reason for Call: Nat called and said the patient just returned back to them. She said it states on the after visit summary to have imaging of the shoulder completed by today. She wants to know if that was done while the patient was out or if they need to do it? Please advise Best time of day caller can be reached: any Patient advised that office/PCP has 24-48 business hours to return their call: No documented in this [facility]03-18-2024 Telephone encounter Note* Telephone Encounter - Paige Araya - 01/03/2024 5:18 PM EDT Name of caller: Nat Contact phone number: [phone] Relationship to Patient: [facility] Provider: Jamila Practice: Neuro Chief Complaint/Reason for Call: Nat called and said the patient just returned back to them. She said it states on the after visit summary to have imaging of the shoulder completed by today. She wants to know if that was done while the patient was out or if they need to do it? Please advise Best time of day caller can be reached: any Patient advised that office/PCP has 24-48 business hours to return their call: No [id number] History of Present illness Narrative* Mejia Cullen MD - 01/03/2024 1:00 PM EDT Images from the original note were not included. [facility] [address] [place] [id number] Dept: [phone] Dept Loc: [phone] [facility] Consultation for Reema Shah : 1975 Today's Date: 01/03/2024 PCP: Jeanie Ayala Patient was seen accompanied by living facility staff. Patient gave permission to discuss medical information with facility staff present. Referral Source: No ref. provider found Recall HPI: Reema Shah is a 48 y.o. female with past medical history of epilepsy (on Keppra and lorazepam), tremors, CKD, anxiety, HTN, GERD, hypothyroidism, obesity, psoriasis, TTP who reports with chief complaint of frequent falls. Interval History: Last seen 10/25/23. At this visit we discussed restarting PT and OT for frequent falls due to weakness, obtaining new power chair before trialing balancewear vest. Today, reports chief complaint low back pain. Symptoms: Frequent falls. Attributes to LUE and LLE weakness and LE shaking. Unclear etiology for Lhemiplegia - patient reports she was told she had a slight stroke in the past but no chronic focal findings on CT Brains. Patient cannot get MRI due to metal in abdomen. Frequent visits to ED due to falls with headstrike and RUE injuries. Most fall situations documented involve reaching for something or transferring. CT heads and radiographs have thus far been negative. Also endorses vertigo ifshe bends over. Manner of onset: Reports symptoms began after a 1993 head injury. Function: Mostly using WC for mobility. Only ambulates with walker short distances in her room to get to bathroom. Ambulating worsens pain in low back and bilateral knees and calves. Has powerchair. Lives in assisted living facility ([facility] Moving to [facility] next month. Workup: CT Brain, CT C and L spine Treatments tried: PT in 2022 - did see improvement. PMH: Past Medical History: Diagnosis Date Anxiety Chronic kidney disease Epilepsy (HCC) Essential hypertension Gastro-esophageal reflux disease without esophagitis Hypokalemia Hypothyroidism Obesity Personal history of urinary (tract) infections Psoriasis Repeated falls Thrombocytopenia (HCC) PSH: Past Surgical History: Procedure Laterality Date BREAST REDUCTION Review of Systems: General: Denies fevers, chills, weight loss, weight gain Skin: Denies rashes ulcerations or lesions HEENT: Denies tinnitus, vertigo, blurry vision, headache Cardio: Denies chest pain, palpitations or edema Respiratory: Denies cough, sob, wheezing GI: Denies nausea, vomiting, constipation, diarrhea, abdominal pain, history of GI bleed : Denies incontinence, dysuria, frequency, urgency MSK: as per HPI Neuro: as Per HPI Psychiatric: Denies any change in mood, anxiety or depression Medications: Current Outpatient Medications Medication Sig Dispense Refill acetaminophen (Tylenol) 500 MG tablet Take by mouth. albuterol 108 (90 Base) MCG/ACT inhaler allopurinol (Zyloprim) 300 MG tablet Take 300 mg by mouth in the morning. amLODIPine (Norvasc) 10 MG tablet Take 10 mg by mouth in the morning. atorvastatin (Lipitor) 20 MG tablet benzonatate (Tessalon) 200 MG capsule Take by mouth. busPIRone (Buspar) 10 MG tablet Calcium + Vitamin D3 600-10 MG-MCG tablet clotrimazole-betamethasone (Lotrisone) cream Cyanocobalamin ER 1000 MCG tablet controlled-release Take 1,000 mcg by mouth in the morning. Diclofenac Sodium (Voltaren) 1 % gel Apply topically every 12 hours. divalproex (Depakote ER) 500 MG 24 hr tablet Take 1 tablet (500 mg) by mouth 2 times daily. 30 tablet 2 famotidine (Pepcid) 20 MG tablet flurbiprofen (Ansaid) 100 MG tablet Take by mouth every 8 hours as needed. guaiFENesin (Humibid 3) 400 MG tablet Take 400 mg by mouth every 6 hours as needed. levETIRAcetam (Keppra) 500 MG tablet 2 times daily. levothyroxine (Synthroid, Levoxyl) 25 MCG tablet lisinopril 20 MG tablet LORazepam (Ativan) 1 MG tablet Take 2 mg by mouth. magnesium oxide (Mag-Ox) 400 MG tablet Take 400 mg by mouth in the morning. meclizine (Antivert) 25 MG tablet Take 25 mg by mouth 3 times daily as needed. metoprolol tartrate (Lopressor) 25 MG tablet 2 times daily. potassium chloride ER (Micro-K) 10 MEQ ER capsule primidone (Mysoline) 50 MG tablet Take 50 mg by mouth in the morning and 50 mg in the evening. sertraline (Zoloft) 100 MG tablet Take 100 mg by mouth in the morning and 100 mg in the evening. divalproex (Depakote ER) 250 MG 24 hr tablet divalproex (Depakote ER) 500 MG 24 hr tablet Take 500 mg by mouth. loperamide (Imodium A-D) 2 MG tablet Take by mouth as needed for diarrhea. loratadine (Claritin) 10 MG tablet Take 10 mg by mouth. senna-docusate (Lani-Colace) 8.6-50 MG tablet Take 2 tablets by mouth Nightly as needed. No current facility-administered medications for this visit. Allergies: Allergies Allergen Reactions Gabapentin Nausea And Vomiting and Unknown Hydrocodone-Acetaminophen Other and Unknown Vomiting Morphine Other, Unknown and Nausea And Vomiting Vomiting Ondansetron Other and Nausea And Vomiting Vomiting Other Phenytoin Unknown Promethazine Other, Unknown and Nausea And Vomiting Sick Acetaminophen Rash Other reaction(s): Rash Azithromycin Rash, Unknown and Nausea And Vomiting Codeine Other, Rash, Unknown and Nausea And Vomiting Vomiting Erythromycin Rash and Unknown Erythromycin Base Rash and Unknown Hydrocodone Rash and Unknown Hydromorphone Rash and Unknown Penicillins Rash and Unknown Tramadol Rash and Unknown Social History: Denies tobacco / alcohol /illicit drug use Work Status: Not currently working or driving. Family History: Family History Problem Relation Name Age of Onset Heart disease Mother Parkinson's Disease Mother Dementia Mother Thyroid disease Father Asthma Sister Seizures Sister Asthma Sister Asthma Brother No Known Problems Maternal Grandmother No Known Problems Maternal Grandfather No Known Problems Paternal Grandmother No Known Problems Paternal Grandfather No Known Problems Daughter Physical Examination: VITALS: Vitals: 01/03/24 1331 BP: (!) 140/85 Pulse: 74 GEN APPEARANCE: Pleasant, well developed, well nourished in no acute distress; PSYCH: Normal mood and affect HEENT: Normocephalic; EOMI; MMM RESP: Breathing non-labored CARDIO: Capillary refill intact in distal extremities SKIN: lesion noted: none MSK: R Shoulder exam + for Apley maneuver and increased pain with IR. Neer, Hawkin, Empty can, Speeds, Yeargason, load and shift all negative at the R shoulder . Intact Passive ROM at R shoulder. NEURO: Motor: Tone was normal in all 4 limbs. No cogwheel rigidity in bilateral UE RUE: Shoulder Abduction: 5/5, Biceps: 4/5, Wrist extension: 5/5, Triceps: 4/5, Finger flexors: 5/5,Finger extensors: 4/5 RLE: Hip flexors: 4/5, Knee extension: 5/5, ankle DF: 5/5, ankle PF: 5/5 LUE:Shoulder Abduction: 5/5, Biceps: 4/5, Wrist extension: 5/5, Triceps: 4/5, Finger flexors: 5/5, Finger extensors: 4/5 LLE: Hip flexors: 4/5, Knee extension: 5/5, ankle DF: 5/5, ankle PF: 5/5 Neurologic Exam: Recall Balance-Based Torso Weighting (BBTW) Exam 10/25/23: Perturbation Gradin = No movement 1 = Mild sway without LE movement 2 = Moderate-Severe sway without LE movement 3 = Mild LE movement 4 = Moderate-Severe LE movement or multiple LE movements Pre BalanceWear-Rx: Perturbations Anterior - Xiphoid: 2 Anterior - Umbilicus: 2 Posterior - Upper Back/Thoracic Midline: 2 Posterior - Lower Back/Lumbar Midline: 2 Lateral-Left Shoulder: 2 Lateral-Right Shoulder: 2 Lateral-Left Waist: 2 Lateral-Right Waist: 2 Rotation: Left Shoulder: 2 Right Shoulder: 2 Left Waist: 2 Right Waist: 2 Total Score: 24 Post BalanceWear-Rx: Perturbations Anterior - Xiphoid: 1 Anterior - Umbilicus: 1 Posterior - Upper Back/Thoracic Midline: 1 Posterior - Lower Back/Lumbar Midline: 1 Lateral-Left Shoulder: 1 Lateral-Right Shoulder: 1 Lateral-Left Waist: 1 Lateral-Right Waist: 1 Rotation: Left Shoulder: 2 Right Shoulder: 2 Left Waist: 2 Right Waist: 2 Total Score: 16 Measurements: Not obtained today. Weights: 1/2 lbs.: none 1/4 lbs.: R shoulder x1, umbilicus x1, T spine x1, L spine x1, R lateral hip x1, L hip x1 1/8 lbs.: L shoulder x1, xiphoid x1, R lateral hip x1 /16 lbs.: none Patient Response: Description: Pre-BalanceWear vest gait impaired by severe tremors and LE weakness. Small, short, slow steps can only tolerate ambulating a few feet before low back pain worsens. While improvement in pertubation testing was seen with addition of BalanceWear vest, patient could not tolerate ambulating with vest due to increased tremors and pain from prolonged standing from physical exam. Cerebellar: BRODY's: mildly slow bilaterally Mild swaying with Romberg Labs: No results found for: WBC, HGB, HCT, MCV, PLT No results found for: GLUCOSE, CALCIUM, NA, K, CO2, CL, BUN, CREATININE IMAGING/PROCEDURES: Recent Holter Monitor and Nuclear Stress Test at [facility] 10/05/23 for pre-op testing were negative. CT Head 09/16/23 (report only, [facility]) The ventricles, cisterns and sulci are prominent, consistent with mild diffuse volume loss. Areas of white matter low attenuation are nonspecific but likely related to chronic microvascular disease. There is intracranial atherosclerosis. Hill-white differentiation is preserved. No acute intracranial hemorrhage or mass effect. No midline shift. Patent basal cisterns. No extraaxial fluid collections. The calvaria is intact. Unchanged findings of hyperostosis frontalis interna. The visualized paranasal sinuses and mastoid air cells are clear. CT C spine 08/25/23 (report only, [facility]) Cervical spine: Alignment: Stable alignment. Cranial cervical junction: Intact. Fracture: No detected fracture. Vertebra and intervertebral disc spaces: Stable degree of degenerative change without evidence significant canal narrowing. Paravertebral soft tissues: No acute detected abnormality. Mild arterial vascular calcifications. Similar dependent ventilatory changes visualized portion of the lungs. CT L Spine 01/21/23 No acute fracture or subluxation. No vertebral body or disc height loss. Scattered small marginal osteophytes. Mild facet arthropathy in the lower lumbar spine. No destructive bone lesion in the lumbar spine. There is a 5 mm sclerotic lesion in the right ilium favored to represent a bone island in a patient with no known history of malignancy. Mild bilateral sacroiliac joint osteoarthritis. Intrauterine device. IMPRESSION: Reema Shah is a 48 y.o. female with past medical history of epilepsy (on Keppra and lorazepam), tremors, CKD, anxiety, HTN, GERD, hypothyroidism, obesity, psoriasis, TTP who reports with chief complaint of frequent falls and imbalance. These appear to be due to LE weakness from deconditioning and low back/MSK pain as well as severe intention tremor in all 4 limbs. PLAN: - Patient would prefer trial of low back brace and therapy before using BalanceWear Vest. Order forlow back brace re-faxed to [facility]. - Cont PT and OT at [facility] [place] - Continue to pursue new powerchair. New prescription sent to [facility] last week. Face to face evaluation performed by this provider 10/25/23. New power chair eval: Custom fitted power chair. Current chair is non-functional due to disrepair and over 5 years old. Mobility impairment due to LE weakness, back pain and intention tremor of legs. Patient unable to safely use a cane, walker or wheelchair due to weakness, spasticity and pain. Mobility impairments cause limitations in daily mobility and activities of daily living. - R shoulder xray for chronic R shoulder pain - Followup in 3 months - The plan was discussed with the patient/family and they report full understanding. Mejia Cullen MD Physical Medicine and Rehabilitation documented in this [facility]03-16-2024 Emergency department Note* Litzy Garcia RN - 01/01/2024 11:59 AM EDT PT DISCHARGED AT THIS TIME. COPY OF DISCHARGE PAPERWORK PROVIDED AND REVIEWED WITH PT AND [employer]. ALL MEDICATIONS, FOLLOW UP, AND DISCHARGE INSTRUCTIONS REVIEWED WITH PT, EMS, AND [facility]. PT VERBALIZED UNDERSTANDING. PT A&OX4. BREATHS EVEN AND UNLABORED. IV ACCESS REMOVED AND PRESSURE DRESSING APPLIED. [id number] Emergency department Note* Litzy Garcia RN - 01/01/2024 11:59 AM EDT PT DISCHARGED AT THIS TIME. COPY OF DISCHARGE PAPERWORK PROVIDED AND REVIEWED WITH PT AND [employer]. ALL MEDICATIONS, FOLLOW UP, AND DISCHARGE INSTRUCTIONS REVIEWED WITH PT, EMS, AND [facility]. PT VERBALIZED UNDERSTANDING. PT A&OX4. BREATHS EVEN AND UNLABORED. IV ACCESS REMOVED AND PRESSURE DRESSING APPLIED. * Litzy Garcia RN - 01/01/2024 11:30 AM EDT Hourly rounding assessment completed on the patient. [] Patient updated on plan of care [x] All comfort needs addressed [x] Patient updated on duration of visit All questions answered, patient denies further needs. Call light within reach. * Hayley Syed PSA - 01/01/2024 11:19 AM EDT This PSA spoke with Franco from [email or web address] transport @1114 to transport pt back to [place], [facility] 1145 * Litzy Garcia RN - 01/01/2024 10:51 AM EDT Pt call light answered. Pt placed on bedpan per request. Pt noted to have a small BM and small amount of urine out put noted. Lani care provided. Pt repositioned and call light in reach. * Litzy Garcia RN - 01/01/2024 10:30 AM EDT Hourly rounding assessment completed on the patient. [] Patient updated on plan of care [x] All comfort needs addressed [] Patient updated on duration of visit All questions answered, patient denies further needs. Call light within reach. * Litzy Garcia RN - 01/01/2024 9:48 AM EDT Pt incontinent and provided bed bath, clean linen, and brief. Pt provided with warm blankets and repositioned per her request. Call light in reach. * Litzy Garcia RN - 01/01/2024 9:30 AM EDT Hourly rounding assessment completed on the patient. [] Patient updated on plan of care [x] All comfort needs addressed [x] Patient updated on duration of visit All questions answered, patient denies further needs. Call light within reach. * Litzy Garcia RN - 01/01/2024 9:03 AM EDT Meal tray delivered. * Litzy Garcia RN - 01/01/2024 8:30 AM EDT Hourly rounding assessment completed on the patient. [] Patient updated on plan of care [x] All comfort needs addressed [x] Patient updated on duration of visit All questions answered, patient denies further needs. Call light within reach. * Litzy Garcia RN - 01/01/2024 7:30 AM EDT Hourly rounding assessment completed on the patient. [] Patient updated on plan of care [x] All comfort needs addressed [x] Patient updated on duration of visit All questions answered, patient denies further needs. Call light within reach. * Litzy Garcia RN - 01/01/2024 7:19 AM EDT Report received from JOHN Cochran. 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 [x] Patient updated on plan of care [x] All comfort needs addressed [x] Patient updated on duration of visit All questions answered, patient denies further needs. Call light within reach. Patient repositioned and given a new warm blanket at this time * Nubia Garcia RN - 12/31/2023 11:02 PM EDT Hourly rounding assessment completed on the patient. [x] Patient updated on plan of care [x] All comfort needs addressed [x] Patient updated on duration of visit All questions answered, patient denies further needs. Call light within reach. Hms at bedside. Verified it is ok for patient to have a snack and drink at this time * Nubia Garcia RN - 12/31/2023 10:10 PM EDT Hourly rounding assessment completed on the patient. [] Patient updated on plan of care [x] All comfort needs addressed [] Patient updated on duration of visit All questions answered, patient denies further needs. Call light within reach. PT ADJUSTED IN THE BED AT THIS TIME * Nubia Garcia RN - 12/31/2023 9:30 PM EDT Pt does not want to take any more nitroglycerine as she says it upsets her stomach. Education provided and MD notified. * Nubia Garcia RN - 12/31/2023 9:29 PM EDT Pt complaining of nausea. MD notified. Pt refusing all medications offered for nausea at this time. * Kindra Lopez CNP - 12/31/2023 9:19 PM EDT Images from the original note were not included. [facility] ED DIOMEDES Note: NAME: Reema Shah 48 y.o. CSN: [id number] PCP: Jeanie Ayala MD History: Chief Complaint: Chest Pain HPI: The history was obtained from the patient. Reema is a 48 y.o. female who presents with a chief complaint of Chest Pain. Patient has a history of CKD, CHF, epilepsy, HLD, HTN, CVA. Presents to the emerged department today with left chest pain. Symptoms started around 7 PM this afternoon while she was sitting in her chair at [facility]. States pain in the left chest radiates through the chest into her left shoulder blade and left shoulder area at a 9/10 on the pain scale. She states the pain does make her feel sweaty and mildly nauseous however not short of breath. She was given 324 mg aspirin and 1 sublingual nitroglycerin prior to arrival. She states the nitro does make her mouth burn. She states the pain is same as when she called the squad. No recent illness, cough, congestion. PMHx: Past Medical History: Diagnosis Date Acquired thrombocytopenia ([facility]) [facility]/Lopez Shaikh Acute kidney injury (HCC) 05/22/2018 [facility]/Jonatan Chiu DO Anxiety Arm abrasion 06/19/2019 INFO GAINED FROM: /CONFUCIANIST ED VISIT NOTE --- AC GAO MD Calcaneal spur of right foot 2016 Documented on x-ray CKD (chronic kidney disease) Congestive heart failure (CHF) ([facility]) [facility]/Lopez Shaikh Contusion, hip 06/19/2019 INFO GAINED FROM: /CONFUCIANIST ED VISIT NOTE --- AC GAO MD Depression Epilepsy ([facility]) 08/06/2011 [facility]- Dr. Chopra Epilepsy ([facility]) 1993 Facet degeneration of lumbar region 10/14/2018 [facility]/Jono ALEXIS, Moi Mild facet degenerative changes seen in the lower lumbar spine Fatty liver [facility]/Joe Mendieta MD Mild fibrofatty changes of the liver Fluid collection (edema) in the arms, legs, hands and feet 03/09/2018 Dr valentina Chopra Gastritis determined by endoscopy 12/29/2016 Dr. GonzalezMrxojo-Kfpmhinzj-yxovtmfdtrqbx nonbleeding with biopsy 1 para 1 Hepatic steatosis [facility]/Heidy Jara MD Mild Hiatal hernia 12/29/[address] Lobo grade 4 Hypercholesterolemia [facility]/Jonatan Chiu DO Hypertension 2001 2000-present Insomnia Neuro [facility]/Lopez Shaikh Kidney stone [facility]/Lopez Shaikh Laceration of head 06/19/2019 INFO GAINED FROM: /CONFUCIANIST ED VISIT NOTE --- AC GAO MD Lung nodule 12/15/2017 0.5 cm pleural based nodule in right middle lobe. Mild linear atelectasis Mitral valve prolapse [facility]/Lopez Shaikh Motor seizure ([facility]) 03/16/2019 INFO GAINED FROM: /CONFUCIANIST ED VISIT --- GILMAN DO,CAREN Rectus diastasis [facility]/Heidy Jara MD Present with small wide necked perumbical ventral containing fat. Second degree burn of foot 04/23/2018 Right Foot - [facility] Sleep apnea Stroke (HCC) 2001 mild Tremor PMSx: Past Surgical History: Procedure Laterality Date Conner pH capsule placement 02/01/2017 Dr. Lobo BREAST REDUCTION 2000 bilateral EGD 12/29/2016 [facility] [place] [facility]-grade 4 hiatal hernia-nonperforating gastritis ESOPHAGEAL MANOMETRY 02/01/2017 HERNIA REPAIR 06/11/2017 Dr Richards INTRAUTERINE DEVICE INSERTION 02/15/2015 Dr. Pennie Meyers OBGYN Laparoscopic LINX sphincter augmentation with cruroplasty 06/11/2017 Dr. Lobo WISDOM TOOTH EXTRACTION FAM. Hx: Family History Problem Relation Age of Onset Dementia Mother Hypertension Mother Heart disease Mother Diabetes Mother Type 2 Stroke Mother Heart failure Mother Seizures Mother Parkinson's Mother Thyroid disease Father Hypertension Father Hypothyroidism Father GI problems Father Seizures Sister Hypertension Sister Heart disease Sister Hypothyroidism Sister Anxiety Sister Sickle cell anemia Other No Known Problems Brother Asthma Sister Hypertension Sister SOC. Hx: Social History Socioeconomic History Marital status: Tobacco Use Smoking status: Former Packs/day: 0 Types: Cigarettes Smokeless tobacco: Never Vaping Use Vaping Use: Never used Substance and Sexual Activity Alcohol use: No Drug use: No Sexual activity: Not Currently MEDs: Previous Medications Medication Sig acetaminophen (TYLENOL) 325 MG tablet Take 2 (two) tablets (650 mg total) by mouth every 4 (four) hours as needed for pain . albuterol 90 mcg/actuation inhaler Inhale 2 (two) puffs every 6 (six) hours as needed for shortnessof breath . allopurinoL (ZYLOPRIM) 300 MG tablet Take 1 (one) tablet (300 mg total) by mouth daily for 5 days . allopurinoL (ZYLOPRIM) 300 MG tablet Take 1 (one) tablet (300 mg total) by mouth daily . amLODIPine (NORVASC) 10 MG tablet Take 1 (one) tablet (10 mg total) by mouth daily for 5 days . atorvastatin (LIPITOR) 20 MG tablet Take 1 (one) tablet (20 mg total) by mouth at bedtime for 5 days . busPIRone (BUSPAR) 10 MG tablet Take 1 (one) tablet (10 mg total) by mouth 3 (three) times a day for 5 days . calcium carbonate-vitamin D3 600-125 mg-unit Tab Take 2,020 Unspecified by mouth . carbamide peroxide (DEBROX) 6.5 % otic solution 5 (five) drops 2 (two) times a day . cyanocobalamin (B-12) 1000 MCG tablet Take 1 Unspecified by mouth . diclofenac sodium 1 % Gel Diclofenac Sodium 1 % External Gel apply sparingly to affected aea twice daily Quantity: 1 Refills: 1 Ordered: 04-Mar-2022 Jeanie Ayala MD Start : 04-Mar-2022 Active divalproex (DEPAKOTE ER) 250 MG 24 hr tablet Take 1 (one) tablet (250 mg total) by mouth every morning AND 2 (two) tablets (500 mg total) at bedtime. Do all this for 5 days. doxazosin (CARDURA) 4 MG tablet Take 1 (one) tablet (4 mg total) by mouth nightly . doxycycline hyclate (VIBRA-TABS) 100 MG tablet Take 1 (one) tablet (100 mg total) by mouth 2 (two) times a day . (Patient not taking: Reported on 08/18/2021 .) ergocalciferol (ERGOCALCIFEROL) 1,250 mcg (50,000 unit) capsule Take 1 (one) capsule (50,000 Units total) by mouth once a week Every . guaiFENesin (HUMIBID 3) 400 mg Tab Take 1 (one) tablet (400 mg total) by mouth . hydroCHLOROthiazide (MICROZIDE) 12.5 mg capsule Take 1 (one) capsule (12.5 mg total) by mouth dailyfor 5 days . ketorolac (TORADOL) 10 mg tablet Take 1 (one) tablet (10 mg total) by mouth 3 (three) times a day as needed for pain . (Patient not taking: Reported on 08/03/2022 .) levETIRAcetam (Keppra) 500 MG tablet Take 1 (one) tablet (500 mg total) by mouth 2 (two) times a day for 5 days . levothyroxine (SYNTHROID, LEVOTHROID) 125 MCG tablet Take 1 (one) tablet (125 mcg total) by mouth every morning . loratadine (CLARITIN) 10 mg tablet Take 1 (one) tablet (10 mg total) by mouth daily . LORazepam (ATIVAN) 1 MG tablet Take 2 (two) tablets (2 mg total) by mouth every morning AND 1.5 (one and a half) tablets (1.5 mg total) at bedtime. Do all this for 5 days. LORazepam (ATIVAN) 1 MG tablet Take 2 (two) tablets (2 mg total) by mouth every morning for 7 days . LORazepam (ATIVAN) 1 MG tablet Take 1.5 (one and a half) tablets (1.5 mg total) by mouth at bedtimefor 7 days . meclizine (ANTIVERT) 25 mg tablet Take 1 (one) tablet (25 mg total) by mouth 3 (three) times a day as needed for nausea . meclizine (ANTIVERT) 25 mg tablet Take 1 (one) tablet (25 mg total) by mouth 3 (three) times a day as needed for nausea . melatonin 5 mg Tab Take by mouth . metoclopramide (Reglan) 10 MG tablet Take 1 (one) tablet (10 mg total) by mouth 3 (three) times a day as needed . (Patient not taking: Reported on 08/18/2021 .) omeprazole (PRILOSEC) 20 MG capsule Take 1 Unspecified by mouth . potassium chloride 10 MEQ CR tablet Take 1 (one) tablet (10 mEq total) by mouth 2 (two) times a dayfor 5 days . primidone (MYSOLINE) 50 MG tablet Take 1 (one) tablet (50 mg total) by mouth 2 (two) times a day for 5 days . sertraline (ZOLOFT) 100 MG tablet Take 1 (one) tablet (100 mg total) by mouth nightly Take with 25 mg tablet for total of 125 mg daily . sertraline (ZOLOFT) 25 MG tablet Take 1 (one) tablet (25 mg total) by mouth nightly Take with 100 mg tablet for total of 125 mg daily . ALL: Allergies Allergen Reactions Acetaminophen Other reaction(s): Rash Codeine Other (See Comments) Vomiting Dilaudid [Hydromorphone] Erythromycin Unknown Morphine Sulfate Other (See Comments) Vomiting Neurontin [Gabapentin] GI Intolerance Other Phenergan [Promethazine] Other (See Comments) Sick Phenytoin Tramadol Vicodin [Hydrocodone-Acetaminophen] Other (See Comments) Vomiting Zofran [Ondansetron Hcl] Other (See Comments) Vomiting Penicillins Rash ROS: Positives and pertinent negatives as per HPI. All other systems were reviewed and are negative. Physical Exam: Patient Vitals for the past 24 hrs: BP Temp Temp src Pulse Resp SpO2 12/31/232122 132/72 -- -- -- -- -- 12/31/235 (!) 134/96 -- -- 85 14 96 % 12/31/232044 (!) 134/96 -- -- 88 13 96 % 12/31/232025 -- 96.9 F (36.1 C) Oral 87 16 95 % Physical Exam Vitals and nursing note reviewed. Constitutional: General: She is not in acute distress. Appearance: Normal appearance. She is well-developed. She is not ill-appearing or toxic-appearing. HENT: Head: Normocephalic and atraumatic. Nose: Nose normal. Eyes: General: No scleral icterus. Conjunctiva/sclera: Conjunctivae normal. Cardiovascular: Rate and Rhythm: Normal rate and regular rhythm. Heart sounds: Normal heart sounds. No murmur heard. Musculoskeletal: Right lower leg: No swelling. No edema. Left lower leg: No swelling. No edema. Pulmonary: Effort: Pulmonary effort is normal. No respiratory distress. Breath sounds: Normal breath sounds and air entry. Chest: Abdominal: General: Abdomen is flat. Bowel sounds are normal. There is no distension. Palpations: Abdomen is soft. Tenderness: There is no abdominal tenderness. Skin: General: Skin is warm and dry. Findings: No rash. Neurological: General: No focal deficit present. Mental Status: She is alert and oriented to person, place, and time. Sensory: Sensation is intact. Motor: Motor function is intact. Psychiatric: Behavior: Behavior normal. Behavior is cooperative. Laboratory & Radiological Imaging (if done): Labs Reviewed NT PRO BNP - Abnormal; Notable for the following components: Result Value NT-Pro BNP 352 (*) All other components within normal limits Narrative: Pride Study Cut-offs Rule In: < /= 50 Years >450 pg/mL 51 Years - 75 Years >900 pg/mL 76 Years - 99 Years >1800 pg/mL Rule Out: All patients <300 pg/mL BASIC METABOLIC PANEL - Abnormal; Notable for the following components: Creatinine 1.38 (*) eGFR 47 (*) All other components within normal limits Narrative: [facility] Laboratory Services has implemented the eGFR calculation approach that does not have a coefficient for race that conforms to the NKF-ASN Task Force Recommendations. LIPASE - Abnormal; Notable for the following components: Lipase 66 (*) All other components within normal limits CBC WITH AUTO DIFFERENTIAL - Abnormal; Notable for the following components: Platelets 121 (*) All other components within normal limits HEPATIC FUNCTION PANEL - Normal CBC AND DIFFERENTIAL Narrative: The following orders were created for panel order CBC w/ Diff. Procedure Abnormality Status --------- ------ CBC Auto Differential[[id number]] Abnormal Final result Please view results for these tests on the individual orders. TROPONIN TROPONIN XR Chest 1 View Final Result Nonacute portable chest. Workstation ID: [id number] CT Dissection With Pelvis (Results Pending) MDM: Medical Decision Making Problems Addressed: Chest pain, unspecified type: acute illness or injury Amount and/or Complexity of Data Reviewed External Data Reviewed: labs and notes. Labs: ordered. Decision-making details documented in ED Course. Radiology: ordered. Decision-making details documented in ED Course. ECG/medicine tests: ordered. Decision-making details documented in ED Course. ED Course as of 12/31/232214Dec 31, 20232117 WBC: 5.32 [RH] 2117 Hemoglobin: 13.3 [RH] 2117 Hematocrit: 38.9 [RH] 2127 Patient received 1 dose of nitroglycerin with improvement of her chest pain. She refuses another dose [RH] 2147 Troponin T: 8 [RH] 2147 Sodium: 140 [RH] 8 Potassium: 4.5 [RH] 2147 Creatinine(!): 1.38 [RH] 2148 eGFR(!): 47 [RH] 2148 Lipase(!): 66 [RH] 2214 Patient presented to the emerged department today for chest pain associated with nausea and diaphoresis. Received aspirin and round as well as nitroglycerin here in the ER. Nitro improved her pain. She has a heart score 4. Plan to admit to the hospitalist for ACS rule out. EKG unremarkable in the ER. [RH] ED Course User Index [RH] Kindra Lopez CNP Clinical Impression: 1. Chest pain, unspecified type Disposition: Patient is being admitted. Kindra Lopez CNP ED Advanced Practice Provider [facility] Emergency Department (Please note that portions of this note have been completed with a voice recognition software. Efforts were made to correct any errors, but occasionally words are mis-transcribed.) Kindra Lopez CNP 12/31/23 2215 * Nubia Garcia RN - 12/31/2023 8:23 PM EDT Per EMS patient reporting 10/10 chest pain that radiates across her back that started about an hourago. * Nubia Garcia RN - 12/31/2023 8:20 PM EDT Per EMS patient chest pain started an hour ago and it radiates across her back. Per ems they gave her [address] in[address] documented in this [id number] Emergency department Note* Litzy Garcia RN - 01/01/2024 11:30 AM EDT Hourly rounding assessment completed on the patient. [] Patient updated on plan of care [x] All comfort needs addressed [x] Patient updated on duration of visit All questions answered, patient denies further needs. Call light within reach. [id number] Hospital course Narrative* Carolynn Dinh DO - 01/01/2024 11:25 AM EDT Images from the original note were not included. [facility] [place] [facility] Reema Shah Admitted: 12/31/2023 Discharge Date: 01/01/24 PCP Handoff Recommended Outpatient Testing None Results Pending At Discharge None Clinical Summary Reema Shah is a 48 y.o. female patient of Jeanie Ayala MD with history of Thrombocytopenia, anxiety, CKD, CHF, depression, epilepsy, fatty liver, gastritis, MR, seizures, MELQUIADES, stroke, tremor presented to [facility] on 12/31/2023 with Chest pain Chest pain Trop wnl x2, ECG without changes. This does not represent ACS CT reviewed, no acute abnormality explain symptoms Symptoms improved the following day Chronic HFpEF Not in acute exacerbation. P-BNP elevation likely due to CKD Consider addition of MRA or SGLT2i MDD/MALI IDENTIFICATION AND RECORDS COMMANDER sertraline, buspirone, lorazepam GERD IDENTIFICATION AND RECORDS COMMANDER famotidine, pantoprazole MELQUIADES CPAP at night CVA Tremors Seizure disorder IDENTIFICATION AND RECORDS COMMANDER primidone, levetiracetam, divalproex HTN/HLD IDENTIFICATION AND RECORDS COMMANDER amlodipine, atorvastatin, lisinopril, metoprolol CKD 3a Basweline Cr near 1.4-1.5 Gout IDENTIFICATION AND RECORDS COMMANDER allopurinol Hypothyroidism IDENTIFICATION AND RECORDS COMMANDER levothyroxine Discharge Medications Discharge Medications Modified Medications Details allopurinoL 300 MG tablet Commonly known as: ZYLOPRIM What changed: Another medication with the same name was removed. Continue taking this medication, and follow the directions you see here. Take 1 (one) tablet (300 mg total) by mouth daily . divalproex 500 MG 24 hr tablet Commonly known as: DEPAKOTE ER What changed: Another medication with the same name was removed. Continue taking this medication, and follow the directions you see here. Take 1 (one) tablet (500 mg total) by mouth 2 (two) times a day . * LORazepam 1 MG tablet Commonly known as: ATIVAN What changed: Another medication with the same name was removed. Continue taking this medication, and follow the directions you see here. Take 1 (one) tablet (1 mg total) by mouth daily as needed for anxiety . * LORazepam 2 MG tablet Commonly known as: ATIVAN What changed: Another medication with the same name was removed. Continue taking this medication, and follow the directions you see here. Take 1 (one) tablet (2 mg total) by mouth at bedtime . meclizine 25 mg tablet Commonly known as: ANTIVERT What changed: Another medication with the same name was removed. Continue taking this medication, and follow the directions you see here. Take 2 (two) tablets (50 mg total) by mouth 3 (three) times a day as needed for dizziness . potassium chloride SA 20 MEQ tablet Commonly known as: K-DUR,KLOR-CON What changed: Another medication with the same name was removed. Continue taking this medication, and follow the directions you see here. Take 1 (one) tablet (20 mEq total) by mouth 2 (two) times a day . sertraline 100 MG tablet Commonly known as: ZOLOFT What changed: Another medication with the same name was removed. Continue taking this medication, and follow the directions you see here. Take 1 (one) tablet (100 mg total) by mouth 2 (two) times a day . * There are duplicate medications prescribed to the patient Medications To Continue Details acetaminophen 325 MG tablet Commonly known as: TYLENOL Take 2 (two) tablets (650 mg total) by mouth every 8 (eight) hours as needed for pain . * albuterol 90 mcg/actuation inhaler Inhale 2 (two) puffs every 6 (six) hours as needed for shortness of breath . * albuterol 2.5 mg /3 mL (0.083 %) nebulizer solution Commonly known as: PROVENTIL Take 3 mL (2.5 mg total) by nebulization every 6 (six) hours as needed for shortness of breath . amLODIPine 10 MG tablet Commonly known as: NORVASC Take 1 (one) tablet (10 mg total) by mouth daily for 5 days . Quantity: 5 tablet artificial tears(hypromellose) 0.5 % ophthalmic solution Commonly known as: ISOPTO TEARS Administer 1 (one) drop to both eyes as needed . atorvastatin 20 MG tablet Commonly known as: LIPITOR Take 1 (one) tablet (20 mg total) by mouth at bedtime for 5 days . Quantity: 5 tablet benzonatate 200 MG capsule Commonly known as: TESSALON Take 1 (one) capsule (200 mg total) by mouth every 8 (eight) hours as needed for cough . bisacodyL 10 mg suppository Commonly known as: DULCOLAX Insert 1 (one) suppository (10 mg total) into the rectum daily as needed for constipation Reasons: constipation. busPIRone 10 MG tablet Commonly known as: BUSPAR Take 1 (one) tablet (10 mg total) by mouth 3 (three) times a day for 5 days . Quantity: 15 tablet calcium carbonate 200 mg calcium (500 mg) chewable tablet Commonly known as: TUMS Chew and Swallow 1 (one) tablet (500 mg total) daily . calcium carbonate-vitamin D3 600 mg-10 mcg (400 unit) per tablet Take 1 (one) tablet by mouth 2 (two) times a day . cyanocobalamin 1000 MCG tablet Commonly known as: B-12 Take 1 (one) tablet (1,000 mcg total) by mouth daily . diclofenac sodium 1% 1 % Gel Commonly known as: VOLTAREN Diclofenac Sodium 1 % External Gel apply sparingly to affected aea twice daily Quantity: 1 Refills:1 Ordered: 04-Mar-2022 Jeanie Ayala MD Start : 04-Mar-2022 Active famotidine 10 MG tablet Commonly known as: PEPCID Take 2 (two) tablets (20 mg total) by mouth daily . flurbiprofen 100 MG tablet Commonly known as: ANSAID Take 1 (one) tablet (100 mg total) by mouth 3 (three) times a day . guaiFENesin 400 mg Tab Commonly known as: HUMIBID 3 Take 1 (one) tablet (400 mg total) by mouth every 6 (six) hours . levETIRAcetam 500 MG tablet Commonly known as: Keppra Take 1 (one) tablet (500 mg total) by mouth 2 (two) times a day for 5 days . Quantity: 10 tablet levothyroxine 25 MCG tablet Commonly known as: SYNTHROID, LEVOTHROID Take 1 (one) tablet (25 mcg total) by mouth every morning . lisinopriL 20 MG tablet Commonly known as: PRINIVIL,ZESTRIL Take 1 (one) tablet (20 mg total) by mouth daily . loratadine 10 mg tablet Commonly known as: CLARITIN Take 1 (one) tablet (10 mg total) by mouth at bedtime . magnesium hydroxide 400 mg/5 mL Susp Generic drug: magnesium hydroxide Take 30 mL (2,400 mg total) by mouth daily as needed Reasons: constipation. metoprolol tartrate 25 MG tablet Commonly known as: LOPRESSOR Take 1 (one) tablet (25 mg total) by mouth 2 (two) times a day . primidone 50 MG tablet Commonly known as: MYSOLINE Take 1 (one) tablet (50 mg total) by mouth 2 (two) times a day for 5 days . Quantity: 10 tablet sodium phosphates 19-7 gram/118 mL Enem Commonly known as: FLEETS ADULT Insert 1 (one) each into the rectum daily as needed Reasons: constipation. * There are duplicate medications prescribed to the patient Stopped Medications carbamide peroxide 6.5 % otic solution Commonly known as: DEBROX divalproex 250 MG 24 hr tablet Commonly known as: DEPAKOTE ER You also have another medication with the same name that you need to continue taking as instructed. doxazosin 4 MG tablet Commonly known as: CARDURA doxycycline hyclate 100 MG tablet Commonly known as: VIBRA-TABS ergocalciferol 1,250 mcg (50,000 unit) capsule Commonly known as: ERGOCALCIFEROL hydroCHLOROthiazide 12.5 mg capsule Commonly known as: MICROZIDE ketorolac 10 mg tablet Commonly known as: TORADOL melatonin 5 mg Tab metoclopramide 10 MG tablet Commonly known as: Reglan omeprazole 20 MG capsule Commonly known as: PRILOSEC potassium chloride 10 MEQ CR tablet You also have another medication with the same name that you need to continue taking as instructed. sertraline 25 MG tablet Commonly known as: ZOLOFT You also have another medication with the same name that you need to continue taking as instructed. Physician(s) Follow Up: No follow-up provider specified. Condition at Discharge: Stable Disposition: ECF I reviewed discharge recommendations with the patient in person. Patient instructions, including activity, were given to the patient/family at discharge. On day of discharge I saw Reema Shah and spent: > 30 minutes on discharge. Completed by: Carolynn Dinh DO on 01/01/24, 12:23 PM documented in this [id number] Emergency department Note* Hayley Syed PSA - 01/01/2024 11:19 AM EDT This PSA spoke with Franco from [email or web address] transport @1114 to transport pt back to [place], [place] [address] [id number] Emergency department Note* Litzy Garcia RN - 01/01/2024 10:51 AM EDT Pt call light answered. Pt placed on bedpan per request. Pt noted to have a small BM and small amount of urine out put noted. Lani care provided. Pt repositioned and call light in reach. [id number] Emergency department Note* Litzy Garcia RN - 01/01/2024 10:30 AM EDT Hourly rounding assessment completed on the patient. [] Patient updated on plan of care [x] All comfort needs addressed [] Patient updated on duration of visit All questions answered, patient denies further needs. Call light within reach. [place] [id number] Emergency department Note* Litzy Garcia RN - 01/01/2024 9:48 AM EDT Pt incontinent and provided bed bath, clean linen, and brief. Pt provided with warm blankets and repositioned per her request. Call light in reach. [id number] Emergency department Note* Litzy Garcia RN - 01/01/2024 9:30 AM EDT Hourly rounding assessment completed on the patient. [] Patient updated on plan of care [x] All comfort needs addressed [x] Patient updated on duration of visit All questions answered, patient denies further needs. Call light within reach. [id number] Emergency department Note* Litzy Garcia RN - 01/01/2024 9:03 AM EDT Meal tray delivered. [id number] Emergency department Note* Litzy Garcia RN - 01/01/2024 8:30 AM EDT Hourly rounding assessment completed on the patient. [] Patient updated on plan of care [x] All comfort needs addressed [x] Patient updated on duration of visit All questions answered, patient denies further needs. Call light within reach. [id number] History of Present illness Narrative* Carolynn Dinh, - 01/01/2024 8:22 AM EDT [facility] [place] Assessment and Plan Reema Shah is a 48 y.o. female patient of Jeanie Ayala MD with history of Thrombocytopenia, anxiety, CKD, CHF, depression, epilepsy, fatty liver, gastritis, MR, seizures, MELQUIADES, stroke, tremor presented to [facility] on 12/31/2023 with Chest pain . Chest pain Trop wnl x2, ECG without changes. This does not represent ACS CT reviewed, no acute abnormality explain symptoms Chronic HFpEF Not in acute exacerbation. P-BNP elevation likely due to CKD Consider addition of MRA or SGLT2i MDD/MALI IDENTIFICATION AND RECORDS COMMANDER sertraline, buspirone, lorazepam GERD IDENTIFICATION AND RECORDS COMMANDER famotidine, pantoprazole MELQUIADES CPAP at night CVA Tremors Seizure disorder IDENTIFICATION AND RECORDS COMMANDER primidone, levetiracetam, divalproex HTN/HLD IDENTIFICATION AND RECORDS COMMANDER amlodipine, atorvastatin, lisinopril, metoprolol CKD 3a Basweline Cr near 1.4-1.5 Gout IDENTIFICATION AND RECORDS COMMANDER allopurinol Hypothyroidism IDENTIFICATION AND RECORDS COMMANDER levothyroxine Discharge Planning Medically Stable for Discharge Date: 12/31 Patient requires continued hospitalization due to: None Discharge Location: ECF Quality Measures DVT Prophylaxis: heparin subcutaneous Lyon Catheter: absent Code Status Full Primary Contact Information Subjective Patient seen and examined at the bedside. She states the chest pressure has relieved. She is hopingto stay through the weekend as her TV is broken. She denies F/C, sob, abdominal pain, N/V/D. Objective BP (!) 160/93 Pulse 88 Temp 96.9 F (36.1 C) (Oral) Resp 13 SpO2 95% Physical Examination General Appearance: alert; chronically ill appearing; in no acute distress HEENT: Head- normocephalic; Eyes- EOMI Cardiovascular: regular rate and rhythm; normal S1, S2; no murmurs, rubs, clicks or gallops; peripheral edema absent Respiratory: lungs clear to auscultation; without wheezes, rales or rhonchi; on room air Abdomen: soft, non-tender, non-distended Neurological: oriented x 3; normal speech; no focal findings or movement disorder noted Musculoskeletal: no significant deformity or tenderness to palpation Skin: normal coloration Psych: normal mood and affect documented in this [id number] Emergency department Note* Litzy Garcia RN - 01/01/2024 7:30 AM EDT Hourly rounding assessment completed on the patient. [] Patient updated on plan of care [x] All comfort needs addressed [x] Patient updated on duration of visit All questions answered, patient denies further needs. Call light within reach. [id number] Emergency department Note* Litzy Garcia RN - 01/01/2024 7:19 AM EDT Report received from JOHN Cochran. [id number] Emergency department Note* Neelima Barroso RN - 01/01/2024 12:40 AM EDT Bed: 35 Expected date: Expected time: Means of arrival: Comments: 10 [employer] [id number] Emergency department Note* Nubia Garcia RN - 01/01/2024 12:01 AM EDT Hourly rounding assessment completed on the patient. [x] Patient updated on plan of care [x] All comfort needs addressed [x] Patient updated on duration of visit All questions answered, patient denies further needs. Call light within reach. Patient repositioned and given a new warm blanket at this time [id number] Emergency department Note* Nubia Garcia RN - 12/31/2023 11:02 PM EDT Hourly rounding assessment completed on the patient. [x] Patient updated on plan of care [x] All comfort needs addressed [x] Patient updated on duration of visit All questions answered, patient denies further needs. Call light within reach. Hms at bedside. Verified it is ok for patient to have a snack and drink at this time T [id number] Note* ED Attestation Note - Moe Tarango MD - 12/31/2023 10:36 PM EDT ED Attestation: I have reviewed the Advanced Practice Provider's (DIOMEDES's) documentation. In addition, I have personally introduced myself to the patient (face to face), and have taken her history and performed an examination. I agree with the physical findings, management, clinical impression and disposition. I did perform the substantive portion of this patient's encounter, including all aspects of the MDM. In brief, Reema is a 48 y.o. female who presents with a chief complaint of Chest Pain. Despite EKG and troponin unremarkable, patient continues have slight chest pain, reasonable to be admitted. T [facility] Work Phone: [phone] 359-850703-15-2024 Miscellaneous Notes* ED Attestation Note - Moe Tarango MD - 12/31/2023 10:36 PM EDT ED Attestation: I have reviewed the Advanced Practice Provider's (DIOMEDES's) documentation. In addition, I have personally introduced myself to the patient (face to face), and have taken her history and performed an examination. I agree with the physical findings, management, clinical impression and disposition. I did perform the substantive portion of this patient's encounter, including all aspects of the MDM. In brief, Reema is a 48 y.o. female who presents with a chief complaint of Chest Pain. Despite EKG and troponin unremarkable, patient continues have slight chest pain, reasonable to be admitted. documented in this [id number] Emergency department Note* Nubia Garcia RN - 12/31/2023 10:10 PM EDT Hourly rounding assessment completed on the patient. [] Patient updated on plan of care [x] All comfort needs addressed [] Patient updated on duration of visit All questions answered, patient denies further needs. Call light within reach. PT ADJUSTED IN THE BED AT THIS TIME [id number] History and physical note* Naveen Hernandez DO - 12/31/2023 9:54 PM EDT [facility] [place] [facility] [place] -- [facility] Patient Name: Reema Shah : 1975 MR #: [id number] Admit Date: 12/31/2023 Physicians: Jeanie Ayala MD (Family); Jyoti Gupta* (Referring) Reema Shah is a 48 y.o. female patient of Jeanie Ayala MD with history of Thrombocytopenia, anxiety, CKD, CHF, depression, epilepsy, fatty liver, gastritis, MR, seizures, MELQUIADES, stroke, tremor presented to [facility] on 12/31/2023 with Chest pain . Chest pain Elevated BNP EKG reviewed and showed, NSR with HR 72 bpm, no significant ST or T wave abnormalities Troponin WNL CXR did not show any acute intrapulmonary process Admit to observation Continue to trend troponin Pain control with Tylenol and morphine as needed Follow-up echo Follow-up respiratory panel Replete electrolyte as needed keep k>4, Phos > 3, Mag >2 Follow-up lipid panel, TSH, A1c Follow-up CT a dissection CHF Elevated BNP BNP on admission 400 Patient clinically is euvolemic, not on Lasix at home Continue to monitor Depression Anxiety Continue buspirone and sertraline Fatty liver Continue to monitor GERD Protonix MELQUIADES CPAP Stroke Tremors Seizures Statin Keppra and Depakote Follow-up Depakote level Hypertension Dyslipidemia Continue amlodipine and hydrochlorothiazide and statin RAÚL Creatinine admission 1.38, Baseline is less than 1 avoid nephrotoxic agent Elevated lipase Lipase on admission 10, patient is not alcoholic mostly from fatty liver Continue to monitor Residence prior to admission: house or apartment Was patient transferred from outlying hospital or ED no Quality Measures DVT Prophylaxis: heparin subcutaneous Lyon Catheter: absent Medication Reconciliation: Verified Admitted with these risk variables:Acute Kidney Injury. Please see assessment and plan for further details. Estimated Date of Discharge less than 2 midnights Code Status Full Code; code status verified on 12/31/2023 with patient (capacity intact) Chief Complaint chest pain History of Present Illness Reema Shah is a 48 y.o. female patient of Jeanie Ayala MD with history of Thrombocytopenia, anxiety, CKD, CHF, depression, epilepsy, fatty liver, gastritis, MR, seizures, MELQUIADES, stroke, tremor presented to [facility] on 12/31/2023 with Chest pain . Pain started at 7 PM while the patient was sitting in a chair in the rehab., Pressure-like, 9 out of 10, radiating to the left arm and left shoulder, associated with sweating and nausea. Was given nitro and aspirin by the EMS. Patient is a poor historian, describes her chest pain as sharp does not radiate not related to food associated with occasional cough relieved with Tylenol. She denied any fever chills abdominal pain palpitation headache dizziness diarrhea or constipation. Past Medical History Past Medical History: Diagnosis Date Acquired thrombocytopenia (HCC) [facility]/Lopez Shaikh Acute kidney injury (HCC) 05/22/2018 [facility]/Jonatan Chiu DO Anxiety Arm abrasion 06/19/2019 INFO GAINED FROM: [facility] ED VISIT NOTE --- AC GAO MD Calcaneal spur of right foot 2016 Documented on x-ray CKD (chronic kidney disease) Congestive heart failure (CHF) ([facility]) [facility]/Lopez Shaikh Contusion, hip 06/19/2019 INFO GAINED FROM: [facility] ED VISIT NOTE --- AC GAO MD Depression Epilepsy ([facility]) 08/06/2011 [facility]- Dr. Chopra Epilepsy ([facility]) 1993 Facet degeneration of lumbar region 10/14/2018 [facility]/Jono ALEXIS, Moi Mild facet degenerative changes seen in the lower lumbar spine Fatty liver [facility]/Joe Mendieta MD Mild fibrofatty changes of the liver Fluid collection (edema) in the arms, legs, hands and feet 03/09/2018 Dr valentina Chopra Gastritis determined by endoscopy 12/29/2016 Dr. GuerreroQllhue-Btrohhkvp-hrfxmaralkkqc nonbleeding with biopsy 1 para 1 Hepatic steatosis [facility]/Heidy Jara MD Mild Hiatal hernia 12/29/[address] Lobo grade 4 Hypercholesterolemia [facility]/Jonatan Chiu DO Hypertension 2000 2000-present Insomnia [facility]/Lopez Shaikh Kidney stone [facility]/Lopez Shaikh Laceration of head 06/19/2019 INFO GAINED FROM: [facility] ED VISIT NOTE --- AC GAO MD A Lung nodule 12/15/2017 0.5 cm pleural based nodule in right middle lobe. Mild linear atelectasis Mitral valve prolapse [facility]/Lopez Shaikh Motor seizure ([facility]) 03/16/2019 INFO GAINED FROM: [facility] ED VISIT --- GILMAN DO,CAREN Rectus diastasis [facility]/Heidy Jara MD Present with small wide necked perumbical ventral containing fat. Second degree burn of foot 04/23/2018 Right Foot - [facility] Sleep apnea Stroke ([facility]) 2000 mild Tremor Past Surgical History Past Surgical History: Procedure Laterality Date Conner pH capsule placement 02/01/2017 Dr. Lobo BREAST REDUCTION 1999 [facility]-nonperforating gastritis ESOPHAGEAL MANOMETRY 02/01/2017 HERNIA REPAIR 06/11/2017 Dr Richards INTRAUTERINE DEVICE INSERTION 02/15/2015 Dr. Pennie Meyers OBROSALINE Laparoscopic LINX sphincter augmentation with cruroplasty 06/11/2017 Dr. Lobo WISDOM TOOTH EXTRACTION Family History Family History Problem Relation Age of Onset Dementia Mother Hypertension Mother Heart disease Mother Diabetes Mother Type 2 Stroke Mother Heart failure Mother Seizures Mother Parkinson's Mother Thyroid disease Father Hypertension Father Hypothyroidism Father GI problems Father Seizures Sister Hypertension Sister Heart disease Sister Hypothyroidism Sister Anxiety Sister Sickle cell anemia Other No Known Problems Brother Asthma Sister Hypertension Sister Social History Social History Tobacco Use Smoking Status Former Packs/day: 0 Types: Cigarettes Smokeless Tobacco Never Social History Substance and Sexual Activity Alcohol Use No Social History Substance and Sexual Activity Drug Use No Allergy Information I have reviewed the patient's allergies. Acetaminophen, Codeine, Dilaudid [hydromorphone], Erythromycin, Morphine sulfate, Neurontin [gabapentin], Other, Phenergan [promethazine], Phenytoin, Tramadol, Vicodin [hydrocodone-acetaminophen], Zofran [ondansetron hcl], and Penicillins Home Medications Home medications were reviewed. Review Of Systems All relevant systems have been reviewed and are negative except as noted in HPI or below Physical Examination BP 132/72 Pulse 85 Temp 96.9 F (36.1 C) (Oral) Resp 14 SpO2 96% General Appearance: alert; chronically ill appearing; in no acute distress HEENT: Head- normocephalic; Eyes- EOMI, sclera anicteric; Throat- mucous membranes moist Cardiovascular: regular rate and rhythm; normal S1, S2; no murmurs, rubs, clicks or gallops; peripheral edema absent Respiratory: lungs clear to auscultation; without wheezes, rales or rhonchi; on room air Abdomen: soft, non-tender, non-distended Neurological: oriented x 3; normal speech; no focal findings or movement disorder noted Musculoskeletal: no significant deformity or tenderness to palpation Skin: normal coloration Psych: normal mood and affect [id number] History and physical note* Naveen Hernandez DO - 12/31/2023 9:54 PM EDT [facility] [place] [facility] Patient Name: Reema Shah : 1975 MR #: [id number] Admit Date: 12/31/2023 Physicians: Jeanie Ayala MD (Family); Jyoti Gupta* (Referring) Reema Shah is a 48 y.o. female patient of Jeanie Ayala MD with history of Thrombocytopenia, anxiety, CKD, CHF, depression, epilepsy, fatty liver, gastritis, MR, seizures, MELQUIADES, stroke, tremor presented to [facility] on 12/31/2023 with Chest pain . Chest pain Elevated BNP EKG reviewed and showed, NSR with HR 72 bpm, no significant ST or T wave abnormalities Troponin WNL CXR did not show any acute intrapulmonary process Admit to observation Continue to trend troponin Pain control with Tylenol and morphine as needed Follow-up echo Follow-up respiratory panel Replete electrolyte as needed keep k>4, Phos > 3, Mag >2 Follow-up lipid panel, TSH, A1c Follow-up CT a dissection CHF Elevated BNP BNP on admission 400 Patient clinically is euvolemic, not on Lasix at home Continue to monitor Depression Anxiety Continue buspirone and sertraline Fatty liver Continue to monitor GERD Protonix MELQUIADES CPAP Stroke Tremors Seizures Statin Keppra and Depakote Follow-up Depakote level Hypertension Dyslipidemia Continue amlodipine and hydrochlorothiazide and statin RAÚL Creatinine admission 1.38, Baseline is less than 1 avoid nephrotoxic agent Elevated lipase Lipase on admission 10, patient is not alcoholic mostly from fatty liver Continue to monitor Residence prior to admission: house or apartment Was patient transferred from outlying hospital or ED no Quality Measures DVT Prophylaxis: heparin subcutaneous Lyon Catheter: absent Medication Reconciliation: Verified Admitted with these risk variables:Acute Kidney Injury. Please see assessment and plan for further details. Estimated Date of Discharge less than 2 midnights Code Status Full Code; code status verified on 12/31/2023 with patient (capacity intact) Chief Complaint chest pain History of Present Illness Reema Shah is a 48 y.o. female patient of Jeanie Ayala MD with history of Thrombocytopenia, anxiety, CKD, CHF, depression, epilepsy, fatty liver, gastritis, MR, seizures, MELQUIADES, stroke, tremor presented to [facility] on 12/31/2023 with Chest pain . Pain started at 7 PM while the patient was sitting in a chair in the rehab., Pressure-like, 9 out of 10, radiating to the left arm and left shoulder, associated with sweating and nausea. Was given nitro and aspirin by the EMS. Patient is a poor historian, describes her chest pain as sharp does not radiate not related to food associated with occasional cough relieved with Tylenol. She denied any fever chills abdominal pain palpitation headache dizziness diarrhea or constipation. Past Medical History Past Medical History: Diagnosis Date Acquired thrombocytopenia ([facility]) [facility] Acute kidney injury (HCC) 05/22/2018 [facility]/Jonatan Chiu DO Anxiety Arm abrasion 06/19/2019 INFO GAINED FROM: [facility] ED VISIT NOTE --- AC GAO MD Calcaneal spur of right foot 2016 Documented on x-ray CKD (chronic kidney disease) Congestive heart failure (CHF) ([facility]) [facility]/Lopez Shaikh Contusion, hip 06/19/2019 INFO GAINED FROM: /[facility] ED VISIT NOTE --- AC GAO MD Depression Epilepsy ([facility]) 08/06/2011 [facility]- Dr. Chopra Epilepsy ([facility]) 1993 Facet degeneration of lumbar region 10/14/2018 [facility]/Jono ALEXIS, Moi Mild facet degenerative changes seen in the lower lumbar spine Fatty liver [facility]/Joe Mendieta MD Mild fibrofatty changes of the liver Fluid collection (edema) in the arms, legs, hands and feet 03/09/2018 Dr valentina Chopra Gastritis determined by endoscopy 12/29/2016 Dr. GonzalezAsqkes-Fpcjjqjzd-orpsculypswws nonbleeding with biopsy 1 para 1 Hepatic steatosis [facility]/Heidy Jara MD Mild Hiatal hernia 12/29/[address] Lobo grade 4 Hypercholesterolemia [facility]/Jonatan Chiu DO Hypertension 2000 2000-present Insomnia [facility]/Lopez Shaikh Kidney stone [facility]opez Sha[facility] Laceration of head 06/19/2019 INFO GAINED FROM: /[facility] ED VISIT NOTE --- AC GAO MD Lung nodule 12/15/2017 0.5 cm pleural based nodule in right middle lobe. Mild linear atelectasis Mitral valve prolapse [facility] Motor seizure (HCC) 03/16/2019 INFO GAINED FROM: /[facility] ED VISIT --- CAREN GILMAN DO Rectus diastasis [facility]/Heidy Jara MD Present with small wide necked perumbical ventral containing fat. Second degree burn of foot 04/23/2018 Right Foot - [facility] Sleep apnea Stroke (HCC) 2000 mild Tremor Past Surgical History Past Surgical History: Procedure Laterality Date Conner pH capsule placement 02/01/2017 Dr. Lobo BREAST REDUCTION 2000 bilateral [facility] hiatal her[facility]-nonperforating gastritis ESOPHAGEAL MANOMETRY 02/01/2017 HERNIA REPAIR 06/11/2017 Dr Richards INTRAUTERINE DEVICE INSERTION 02/15/2015 Dr. Pennie Meyers OBGYCari Laparoscopic LINX sphincter augmentation with cruroplasty 06/11/2017 Dr. Lobo WISDOM TOOTH EXTRACTION Family History Family History Problem Relation Age of Onset Dementia Mother Hypertension Mother Heart disease Mother Diabetes Mother Type 2 Stroke Mother Heart failure Mother Seizures Mother Parkinson's Mother Thyroid disease Father Hypertension Father Hypothyroidism Father GI problems Father Seizures Sister Hypertension Sister Heart disease Sister Hypothyroidism Sister Anxiety Sister Sickle cell anemia Other No Known Problems Brother Asthma Sister Hypertension Sister Social History Social History Tobacco Use Smoking Status Former Packs/day: 0 Types: Cigarettes Smokeless Tobacco Never Social History Substance and Sexual Activity Alcohol Use No Social History Substance and Sexual Activity Drug Use No Allergy Information I have reviewed the patient's allergies. Acetaminophen, Codeine, Dilaudid [hydromorphone], Erythromycin, Morphine sulfate, Neurontin [gabapentin], Other, Phenergan [promethazine], Phenytoin, Tramadol, Vicodin [hydrocodone-acetaminophen], Zofran [ondansetron hcl], and Penicillins Home Medications Home medications were reviewed. Review Of Systems All relevant systems have been reviewed and are negative except as noted in HPI or below Physical Examination BP 132/72 Pulse 85 Temp 96.9 F (36.1 C) (Oral) Resp 14 SpO2 96% General Appearance: alert; chronically ill appearing; in no acute distress HEENT: Head- normocephalic; Eyes- EOMI, sclera anicteric; Throat- mucous membranes moist Cardiovascular: regular rate and rhythm; normal S1, S2; no murmurs, rubs, clicks or gallops; peripheral edema absent Respiratory: lungs clear to auscultation; without wheezes, rales or rhonchi; on room air Abdomen: soft, non-tender, non-distended Neurological: oriented x 3; normal speech; no focal findings or movement disorder noted Musculoskeletal: no significant deformity or tenderness to palpation Skin: normal coloration Psych: normal mood and affect documented in this [id number] Emergency department Note* Nubia Garcia RN - 12/31/2023 9:30 PM EDT Pt does not want to take any more nitroglycerine as she says it upsets her stomach. Education provided and MD notified. [id number] Emergency department Note* Nubia Garcia RN - 12/31/2023 9:29 PM EDT Pt complaining of nausea. MD notified. Pt refusing all medications offered for nausea at this time. [id number] Physician Emergency department Note* Kindra Lopez CNP - 12/31/2023 9:19 PM EDT Images from the original note were not included. [facility] ED DIOMEDES Note: NAME: Reema Shah 48 y.o. CSN: [id number] PCP: Jeanie Ayala MD History: Chief Complaint: Chest Pain HPI: The history was obtained from the patient. Reema is a 48 y.o. female who presents with a chief complaint of Chest Pain. Patient has a history of CKD, CHF, epilepsy, HLD, HTN, CVA. Presents to the emerged department today with left chest pain. Symptoms started around 7 PM this afternoon while she was sitting in her chair at [facility]. States pain in the left chest radiates through the chest into her left shoulder blade and left shoulder area at a 9/10 on the pain scale. She states the pain does make her feel sweaty and mildly nauseous however not short of breath. She was given 324 mg aspirin and 1 sublingual nitroglycerin prior to arrival. She states the nitro does make her mouth burn. She states the pain is same as when she called the squad. No recent illness, cough, congestion. PMHx: Past Medical History: Diagnosis Date Acquired thrombocytopenia ([facility]) [facility] Acute kidney injury (HCC) 05/22/2018 [facility]/Jonatan Chiu DO Anxiety Arm abrasion 06/19/2019 INFO GAINED FROM: /[facility] ED VISIT NOTE --- AC GAO MD Calcaneal spur of right foot 2016 Documented on x-ray CKD (chronic kidney disease) Congestive heart failure (CHF) ([facility]) [facility]Lopez Shaikh Contusion, hip 06/19/2019 INFO GAINED FROM: /[facility] ED VISIT NOTE --- AC GAO MD Depression Epilepsy ([facility]) 08/06/2011 [facility]- Dr. Chopra Epilepsy ([facility]) 1994 Facet degeneration of lumbar region 10/14/2018 [facility]/Jono ALEXIS, Moi Mild facet degenerative changes seen in the lower lumbar spine Fatty liver [facility]/Joe Mendieta MD Mild fibrofatty changes of the liver Fluid collection (edema) in the arms, legs, hands and feet 03/09/2018 Dr valentina Chopra Gastritis determined by endoscopy 12/29/2016 Dr. GonzalezStlbno-Urlkxojeg-rgzkrvegnmsqv nonbleeding with biopsy 1 para 1 Hepatic steatosis [facility]/Heidy Jara MD Mild Hiatal hernia 12/29/[address] Lobo grade 4 Hypercholesterolemia [facility]/Jonatan Chiu DO Hypertension 2000 2000-present Insomnia [facility]opez Shaikh Kidney stone [facility] Laceration of head 06/19/2019 INFO GAINED FROM: /[facility] ED VISIT NOTE --- AC GAO MD Lung nodule 12/15/2017 0.5 cm pleural based nodule in right middle lobe. Mild linear atelectasis Mitral valve prolapse [facility] Motor seizure (HCC) 03/16/2019 INFO GAINED FROM: /[facility] ED VISIT --- BLAKE STEELECAREN Rectus diastasis [facility]/Heidy Jara MD Present with small wide necked perumbical ventral containing fat. Second degree burn of foot 04/23/2018 Right Foot - [facility] Sleep apnea Stroke (HCC) 2000 mild Tremor PMSx: Past Surgical History: Procedure Laterality Date Conner pH capsule placement 02/01/2017 Dr. Lobo BREAST REDUCTION 2000 bilateral EGD 12/29[facility] 4 hiatal hernia-nonperforating gastritis ESOPHAGEAL MANOMETRY 02/01/2017 HERNIA REPAIR 06/11/2017 Dr Richards INTRAUTERINE DEVICE INSERTION 02/15/2015 Dr. Pennie Meyers OBGYN Laparoscopic LINX sphincter augmentation with cruroplasty 06/11/2017 Dr. Lobo WISDOM TOOTH EXTRACTION FAM. Hx: Family History Problem Relation Age of Onset Dementia Mother Hypertension Mother Heart disease Mother Diabetes Mother Type 2 Stroke Mother Heart failure Mother Seizures Mother Parkinson's Mother Thyroid disease Father Hypertension Father Hypothyroidism Father GI problems Father Seizures Sister Hypertension Sister Heart disease Sister Hypothyroidism Sister Anxiety Sister Sickle cell anemia Other No Known Problems Brother Asthma Sister Hypertension Sister SOC. Hx: Social History Socioeconomic History Marital status: Tobacco Use Smoking status: Former Packs/day: 0 Types: Cigarettes Smokeless tobacco: Never Vaping Use Vaping Use: Never used Substance and Sexual Activity Alcohol use: No Drug use: No Sexual activity: Not Currently MEDs: Previous Medications Medication Sig acetaminophen (TYLENOL) 325 MG tablet Take 2 (two) tablets (650 mg total) by mouth every 4 (four) hours as needed for pain . albuterol 90 mcg/actuation inhaler Inhale 2 (two) puffs every 6 (six) hours as needed for shortnessof breath . allopurinoL (ZYLOPRIM) 300 MG tablet Take 1 (one) tablet (300 mg total) by mouth daily for 5 days . allopurinoL (ZYLOPRIM) 300 MG tablet Take 1 (one) tablet (300 mg total) by mouth daily . amLODIPine (NORVASC) 10 MG tablet Take 1 (one) tablet (10 mg total) by mouth daily for 5 days . atorvastatin (LIPITOR) 20 MG tablet Take 1 (one) tablet (20 mg total) by mouth at bedtime for 5 days . busPIRone (BUSPAR) 10 MG tablet Take 1 (one) tablet (10 mg total) by mouth 3 (three) times a day for 5 days . calcium carbonate-vitamin D3 600-125 mg-unit Tab Take 2,020 Unspecified by mouth . carbamide peroxide (DEBROX) 6.5 % otic solution 5 (five) drops 2 (two) times a day . cyanocobalamin (B-12) 1000 MCG tablet Take 1 Unspecified by mouth . diclofenac sodium 1 % Gel Diclofenac Sodium 1 % External Gel apply sparingly to affected aea twice daily Quantity: 1 Refills: 1 Ordered: 04-Mar-2022 Jamie ALEXIS, Jeanie Start : 04-Mar-2022 Active divalproex (DEPAKOTE ER) 250 MG 24 hr tablet Take 1 (one) tablet (250 mg total) by mouth every morning AND 2 (two) tablets (500 mg total) at bedtime. Do all this for 5 days. doxazosin (CARDURA) 4 MG tablet Take 1 (one) tablet (4 mg total) by mouth nightly . doxycycline hyclate (VIBRA-TABS) 100 MG tablet Take 1 (one) tablet (100 mg total) by mouth 2 (two) times a day . (Patient not taking: Reported on 08/18/2021 .) ergocalciferol (ERGOCALCIFEROL) 1,250 mcg (50,000 unit) capsule Take 1 (one) capsule (50,000 Units total) by mouth once a week Every . guaiFENesin (HUMIBID 3) 400 mg Tab Take 1 (one) tablet (400 mg total) by mouth . hydroCHLOROthiazide (MICROZIDE) 12.5 mg capsule Take 1 (one) capsule (12.5 mg total) by mouth dailyfor 5 days . ketorolac (TORADOL) 10 mg tablet Take 1 (one) tablet (10 mg total) by mouth 3 (three) times a day as needed for pain . (Patient not taking: Reported on 08/03/2022 .) levETIRAcetam (Keppra) 500 MG tablet Take 1 (one) tablet (500 mg total) by mouth 2 (two) times a day for 5 days . levothyroxine (SYNTHROID, LEVOTHROID) 125 MCG tablet Take 1 (one) tablet (125 mcg total) by mouth every morning . loratadine (CLARITIN) 10 mg tablet Take 1 (one) tablet (10 mg total) by mouth daily . LORazepam (ATIVAN) 1 MG tablet Take 2 (two) tablets (2 mg total) by mouth every morning AND 1.5 (one and a half) tablets (1.5 mg total) at bedtime. Do all this for 5 days. LORazepam (ATIVAN) 1 MG tablet Take 2 (two) tablets (2 mg total) by mouth every morning for 7 days . LORazepam (ATIVAN) 1 MG tablet Take 1.5 (one and a half) tablets (1.5 mg total) by mouth at bedtimefor 7 days . meclizine (ANTIVERT) 25 mg tablet Take 1 (one) tablet (25 mg total) by mouth 3 (three) times a day as needed for nausea . meclizine (ANTIVERT) 25 mg tablet Take 1 (one) tablet (25 mg total) by mouth 3 (three) times a day as needed for nausea . melatonin 5 mg Tab Take by mouth . metoclopramide (Reglan) 10 MG tablet Take 1 (one) tablet (10 mg total) by mouth 3 (three) times a day as needed . (Patient not taking: Reported on 08/18/2021 .) omeprazole (PRILOSEC) 20 MG capsule Take 1 Unspecified by mouth . potassium chloride 10 MEQ CR tablet Take 1 (one) tablet (10 mEq total) by mouth 2 (two) times a dayfor 5 days . primidone (MYSOLINE) 50 MG tablet Take 1 (one) tablet (50 mg total) by mouth 2 (two) times a day for 5 days . sertraline (ZOLOFT) 100 MG tablet Take 1 (one) tablet (100 mg total) by mouth nightly Take with 25 mg tablet for total of 125 mg daily . sertraline (ZOLOFT) 25 MG tablet Take 1 (one) tablet (25 mg total) by mouth nightly Take with 100 mg tablet for total of 125 mg daily . ALL: Allergies Allergen Reactions Acetaminophen Other reaction(s): Rash Codeine Other (See Comments) Vomiting Dilaudid [Hydromorphone] Erythromycin Unknown Morphine Sulfate Other (See Comments) Vomiting Neurontin [Gabapentin] GI Intolerance Other Phenergan [Promethazine] Other (See Comments) Sick Phenytoin Tramadol Vicodin [Hydrocodone-Acetaminophen] Other (See Comments) Vomiting Zofran [Ondansetron Hcl] Other (See Comments) Vomiting Penicillins Rash ROS: Positives and pertinent negatives as per HPI. All other systems were reviewed and are negative. Physical Exam: Patient Vitals for the past 24 hrs: BP Temp Temp src Pulse Resp SpO2 12/31/23 2123 132/72 -- -- -- -- -- 12/31/23 2115 (!) 134/96 -- -- 85 14 96 % 12/31/232044 (!) 134/96 -- -- 88 13 96 % 12/31/232025 -- 96.9 F (36.1 C) Oral 87 16 95 % Physical Exam Vitals and nursing note reviewed. Constitutional: General: She is not in acute distress. Appearance: Normal appearance. She is well-developed. She is not ill-appearing or toxic-appearing. HENT: Head: Normocephalic and atraumatic. Nose: Nose normal. Eyes: General: No scleral icterus. Conjunctiva/sclera: Conjunctivae normal. Cardiovascular: Rate and Rhythm: Normal rate and regular rhythm. Heart sounds: Normal heart sounds. No murmur heard. Musculoskeletal: Right lower leg: No swelling. No edema. Left lower leg: No swelling. No edema. Pulmonary: Effort: Pulmonary effort is normal. No respiratory distress. Breath sounds: Normal breath sounds and air entry. Chest: Abdominal: General: Abdomen is flat. Bowel sounds are normal. There is no distension. Palpations: Abdomen is soft. Tenderness: There is no abdominal tenderness. Skin: General: Skin is warm and dry. Findings: No rash. Neurological: General: No focal deficit present. Mental Status: She is alert and oriented to person, place, and time. Sensory: Sensation is intact. Motor: Motor function is intact. Psychiatric: Behavior: Behavior normal. Behavior is cooperative. Laboratory & Radiological Imaging (if done): Labs Reviewed NT PRO BNP - Abnormal; Notable for the following components: Result Value NT-Pro BNP 352 (*) All other components within normal limits Narrative: Pride Study Cut-offs Rule In: < /= 50 Years >450 pg/mL 51 Years - 75 Years >900 pg/mL 76 Years - 99 Years >1800 pg/mL Rule Out: All patients <300 pg/mL BASIC METABOLIC PANEL - Abnormal; Notable for the following components: Creatinine 1.38 (*) eGFR 47 (*) All other components within normal limits Narrative: [facility] Laboratory Services has implemented the eGFR calculation approach that does not have a coefficient for race that conforms to the NKF-ASN Task Force Recommendations. LIPASE - Abnormal; Notable for the following components: Lipase 66 (*) All other components within normal limits CBC WITH AUTO DIFFERENTIAL - Abnormal; Notable for the following components: Platelets 121 (*) All other components within normal limits HEPATIC FUNCTION PANEL - Normal CBC AND DIFFERENTIAL Narrative: The following orders were created for panel order CBC w/ Diff. Procedure Abnormality Status --------- ------ CBC Auto Differential[[id number]] Abnormal Final result Please view results for these tests on the individual orders. TROPONIN TROPONIN XR Chest 1 View Final Result Nonacute portable chest. Workstation ID: [id number] CT Dissection With Pelvis (Results Pending) MDM: Medical Decision Making Problems Addressed: Chest pain, unspecified type: acute illness or injury Amount and/or Complexity of Data Reviewed External Data Reviewed: labs and notes. Labs: ordered. Decision-making details documented in ED Course. Radiology: ordered. Decision-making details documented in ED Course. ECG/medicine tests: ordered. Decision-making details documented in ED Course. ED Course as of 12/31/232214Dec 31, 20232117 WBC: 5.32 [RH] 2117 Hemoglobin: 13.3 [RH] 2117 Hematocrit: 38.9 [RH] 2127 Patient received 1 dose of nitroglycerin with improvement of her chest pain. She refuses another dose [RH] 2147 Troponin T: 8 [RH] 2147 Sodium: 140 [RH] 8 Potassium: 4.5 [RH] 2147 Creatinine(!): 1.38 [RH] 2148 eGFR(!): 47 [RH] 8 Lipase(!): 66 [RH] 2213 Patient presented to the emerged department today for chest pain associated with nausea and diaphoresis. Received aspirin and round as well as nitroglycerin here in the ER. Nitro improved her pain. She has a heart score 4. Plan to admit to the hospitalist for ACS rule out. EKG unremarkable in the ER. [RH] ED Course User Index [RH] Kindra Lopez CNP Clinical Impression: 1. Chest pain, unspecified type Disposition: Patient is being admitted. Kindra Lopez CNP ED Advanced Practice Provider [facility] Emergency Department (Please note that portions of this note have been completed with a voice recognition software. Efforts were made to correct any errors, but occasionally words are mis-transcribed.) Kindra Lopez CNP 12/31/235 [id number] Emergency department Triage note* Nubia Garcia RN - 12/31/2023 8:23 PM EDT Per EMS patient reporting 10/10 chest pain that radiates across her back that started about an hourago. [id number] Emergency department Note* Nubia Garcia RN - 12/31/2023 8:20 PM EDT Per EMS patient chest pain started an hour ago and it radiates across her back. Per ems they gave her [address] [id number] Telephone encounter Note* Telephone Encounter - Mejia Cullen MD - 12/28/2023 4:24 PM EDT Powerchair and therapy orders reprinted, signed and refaxed to fax listed. [id number] Miscellaneous Notes* Telephone Encounter - Mejia Cullen MD - 12/28/2023 4:24 PM EDT Powerchair and therapy orders reprinted, signed and refaxed to fax listed. * Telephone Encounter - She Chau - 12/28/2023 11:06 AM EDT Name of caller: Toañ Contact phone number: [phone] Relationship to Patient: patient Provider: Dr. Cullen Practice: General Neurology & Rehab Medicine Chief Complaint/Reason for Call: Toña states she received an order for a wheel chair for the patientthat needs to be signed electronically or physically by the physician and re faxed. Toña states she also needs a separate order for therapy that will need to be electronically or physically signed by the physician. Toña states both need to be faxed to [phone]. Please advise. Best time of day caller can be reached: any Patient advised that office/PCP has 24-48 business hours to return their call: N/A documented in this encounterSCleveland [facility] [id number] Telephone encounter Note* Telephone Encounter - Noellegrace Cari Chau - 12/28/2023 11:06 AM EDT Name of caller: Toña Contact phone number: [phone] Relationship to Patient: patient Provider: Dr. Cullen Practice: General Neurology & Rehab Medicine Chief Complaint/Reason for Call: Toña states she received an order for a wheel chair for the patientthat needs to be signed electronically or physically by the physician and re faxed. Toña states she also needs a separate order for therapy that will need to be electronically or physically signed by the physician. Toña states both need to be faxed to [phone]. Please advise. Best time of day caller can be reached: any Patient advised that office/PCP has 24-48 business hours to return their call: N/A [facility] [id number] Telephone encounter Note* Telephone Encounter - Maxine Oconnell - 12/22/2023 2:10 PM EST Name of caller: Dimas Contact phone number: [phone] Relationship to Patient: [facility] Provider: Dr. Cullen Practice: Neurology Chief Complaint/Reason for Call: Dimas states that the patient is now living at their facility and they will be unable to transport the patient that far to her appointments. Dimas is requesting that the patient's medical history/physical reports be faxed to them at [phone] so that they can referher to a closer provider. Please be advised. Best time of day caller can be reached: any Patient advised that office/PCP has 24-48 business hours to return their call: N/A [facility] HospitalFzxoky06-09-6125 Miscellaneous Notes* Telephone Encounter - Maxine Oconnell - 12/22/2023 2:10 PM EST Name of caller: Dimas Contact phone number: [phone] Relationship to Patient: [facility] Provider: Dr. Cullen Practice: Neurology Chief Complaint/Reason for Call: Dimas states that the patient is now living at their facility and they will be unable to transport the patient that far to her appointments. Dimas is requesting that the patient's medical history/physical reports be faxed to them at [phone] so that they can referher to a closer provider. Please be advised. Best time of day caller can be reached: any Patient advised that office/PCP has 24-48 business hours to return their call: N/A documented in this [facility]01-31-2024 Emergency department Note* Larry Eugene DO - 11/17/2023 4:08 PM EST HPI Chief Complaint Patient presents with Fall Pt to ED with EMS after a fall in the bathroom. Pt was using her walker, standing at the sink when she became really shaky and fell to the side, onto the toilet. Pt hit her mid back, right shoulder, and hurt her neck. Denies LOC. Pt on vacu-mat per EMS. Limitations to History: None HPI: 48-year-old female presents with back and neck pain. States that she was using her walker to go to the bathroom and fell backwards striking her back on the toilet. States that she whipped her neck backwards. Has pain in from her tailbone to her neck. Sharp in nature. Worse with movement. Denies any numbness or tingling. Denies any nausea, vomiting, headache, vision change. Patient is not on anticoagulation. Additional History Obtained from: EMS Physical Exam: VS: As documented in the triage note and EMR flowsheet from this visit were reviewed. Appearance: Alert. cooperative, in no acute distress. Skin: Intact, dry skin, no lesions, rash, petechiae or purpura. Eyes: PERRLA, EOMs intact, Conjunctiva pink with no redness or exudates. HENT: Normocephalic, atraumatic. Nares patent. No intraoral lesions. Neck: Supple, without meningismus. Trachea at midline. No lymphadenopathy. Pulmonary: Clear bilaterally with good chest wall excursion. No rales, rhonchi or wheezing. No accessory muscle use or stridor. Cardiac: Regular rate and rhythm, no rubs, murmurs, or gallops. Abdomen: Abdomen is soft, nontender, and nondistended. No palpable organomegaly. No rebound or guarding. No CVA tenderness. Nonsurgical abdomen Genitourinary: Exam deferred. Musculoskeletal: Full range of motion. Pulses full and equal. No cyanosis, clubbing, or edema. Tenderness to palpation to the paracervical and paralumbar musculature. Neurological: Cranial nerves are grossly intact, grossly normal sensation, no weakness, no focal findings identified. Psychiatric: Appropriate mood and affect. No data recorded Patient History Past Medical History: Diagnosis Date Encounter for gynecological examination (general) (routine) without abnormal findings 01/29/2021 Pap test, as part of routine gynecological examination Epilepsy (CMS/HCC) GERD (gastroesophageal reflux disease) Immunization not carried out because of patient refusal Influenza vaccination declined Leg swelling 02/25/2023 Lumbar contusion 02/25/2023 Other conditions influencing health status Hepatic Failure Other conditions influencing health status Menarche Other conditions influencing health status History of vaginal delivery Pain of left lower extremity 02/25/2023 Pelvic and perineal pain 01/29/2021 Pelvic pain in female Pelvic and perineal pain 07/01/2021 Pelvic pain in female Pelvic and perineal pain 07/01/2021 Pelvic pain in female Personal history of diseases of the blood and blood-forming organs and certain disorders involving the immune mechanism History of anemia Personal history of other diseases of the circulatory system History of hypertension Personal history of other diseases of the circulatory system History of congestive heart failure Personal history of other diseases of urinary system History of chronic kidney disease Personal history of other medical treatment H/O mammogram Personal history of other medical treatment History of blood transfusion Personal history of other specified conditions History of seizure Thrombocytopenia (CMS/HCC) Unspecified kidney failure 04/08/2021 Renal failure 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 Very important you follow up with Dr. Chopra the neurologist on 03/16/2019. Weakness 12/01/2020 Past Surgical History: Procedure Laterality Date BREAST SURGERY 05/31/2013 Breast Surgery Reduction Procedure CT ANGIO NECK 05/09/2022 CT NECK ANGIO W AND WO IV CONTRAST 05/09/2022 [facility] CT HEAD ANGIO W AND WO IV CONTRAST 05/09/2022 CT HEAD ANGIO W AND WO IV CONTRAST 05/09/2022 [facility] OTHER SURGICAL HISTORY 01/30/2022 Intrauterine device placement OTHER SURGICAL HISTORY 08/04/2019 Breast reduction Family History Problem Relation Name Age of Onset Hypertension Mother Diabetes Mother Other (cardiac disorder) Mother Hypothyroidism Father Seizures Sister absence and GTC seizures Heart disease Other Hypothyroidism Other COPD Other Lupus Other systemic lupus erythematosus Social History Tobacco Use Smoking status: Former Types: Cigarettes Smokeless tobacco: Never Vaping Use Vaping Use: Never used Substance Use Topics Alcohol use: Never Drug use: Never Physical Exam ED Triage Vitals [11/17/23 1608] Temperature Heart Rate Respirations BP 36.4 C (97.6 F) 79 18 150/78 Pulse Ox Temp Source Heart Rate Source Patient Position 94 % Temporal Monitor Lying BP Location FiO2 (%) Left arm -- Physical Exam ED Course & MDM Diagnoses as of 11/17/231909 Contusion of back, unspecified laterality, initial encounter Fall, initial encounter Medical Decision Making CT cervical spine wo IV contrast Final Result No evidence for an acute fracture or subluxation of the cervical spine. MACRO: None Signed by: Otis Prather 11/17/2023 5:56 PM Dictation workstation: [id number] CT thoracic spine wo IV contrast Final Result No evidence of acute fracture or subluxation. No significant degenerative neural canal narrowing. Interstitial changes posteriorly in both lung bases most likely representing atelectasis or fibrosis. Signed by Tenisha Rcihards MD CT lumbar spine wo IV contrast Final Result No evidence of acute fracture or subluxation. No significant degenerative neural canal narrowing. Interstitial changes posteriorly in both lung bases most likely representing atelectasis or fibrosis. Signed by Tenisha Richards MD Medical Decision Making: Patient appears well nontoxic. Vital signs within normal limits. Patient treated with oral Ativan for home dose as well as intramuscular morphine. CT cervical spine, thoracic spine, lumbar spine shows no acute traumatic injury. Patient feeling improved. Will be discharged back to the assisted living facility in stable condition. Differential Diagnoses Considered: Lumbar contusion versus fracture, cervical strain versus fracture Independent Interpretation of Studies: I independently interpreted: CT cervical spine shows no acute fracture or dislocation. CT thoracic spine shows no acute fracture or dislocation. CT lumbar spine shows no acute fracture or dislocation. Escalation of Care: Appropriate for discharge and follow-up with primary care. Procedure Procedures Larry Eugene DO 11/17/231910 documented in this [facility] [place] Work Phone: [phone]) 328-725001-31-2024 Physician Emergency department Note* Larry Eugene DO - 11/17/2023 4:08 PM EST HPI Chief Complaint Patient presents with Fall Pt to ED with EMS after a fall in the bathroom. Pt was using her walker, standing at the sink when she became really shaky and fell to the side, onto the toilet. Pt hit her mid back, right shoulder, and hurt her neck. Denies LOC. Pt on vacu-mat per EMS. Limitations to History: None HPI: 48-year-old female presents with back and neck pain. States that she was using her walker to go to the bathroom and fell backwards striking her back on the toilet. States that she whipped her neck backwards. Has pain in from her tailbone to her neck. Sharp in nature. Worse with movement. Denies any numbness or tingling. Denies any nausea, vomiting, headache, vision change. Patient is not on anticoagulation. Additional History Obtained from: EMS Physical Exam: VS: As documented in the triage note and EMR flowsheet from this visit were reviewed. Appearance: Alert. cooperative, in no acute distress. Skin: Intact, dry skin, no lesions, rash, petechiae or purpura. Eyes: PERRLA, EOMs intact, Conjunctiva pink with no redness or exudates. HENT: Normocephalic, atraumatic. Nares patent. No intraoral lesions. Neck: Supple, without meningismus. Trachea at midline. No lymphadenopathy. Pulmonary: Clear bilaterally with good chest wall excursion. No rales, rhonchi or wheezing. No accessory muscle use or stridor. Cardiac: Regular rate and rhythm, no rubs, murmurs, or gallops. Abdomen: Abdomen is soft, nontender, and nondistended. No palpable organomegaly. No rebound or guarding. No CVA tenderness. Nonsurgical abdomen Genitourinary: Exam deferred. Musculoskeletal: Full range of motion. Pulses full and equal. No cyanosis, clubbing, or edema. Tenderness to palpation to the paracervical and paralumbar musculature. Neurological: Cranial nerves are grossly intact, grossly normal sensation, no weakness, no focal findings identified. Psychiatric: Appropriate mood and affect. No data recorded Patient History Past Medical History: Diagnosis Date Encounter for gynecological examination (general) (routine) without abnormal findings 01/29/2021 Pap test, as part of routine gynecological examination Epilepsy (CMS/HCC) GERD (gastroesophageal reflux disease) Immunization not carried out because of patient refusal Influenza vaccination declined Leg swelling 02/25/2023 Lumbar contusion 02/25/2023 Other conditions influencing health status Hepatic Failure Other conditions influencing health status Menarche Other conditions influencing health status History of vaginal delivery Pain of left lower extremity 02/25/2023 Pelvic and perineal pain 01/29/2021 Pelvic pain in female Pelvic and perineal pain 07/01/2021 Pelvic pain in female Pelvic and perineal pain 07/01/2021 Pelvic pain in female Personal history of diseases of the blood and blood-forming organs and certain disorders involving the immune mechanism History of anemia Personal history of other diseases of the circulatory system History of hypertension Personal history of other diseases of the circulatory system History of congestive heart failure Personal history of other diseases of urinary system History of chronic kidney disease Personal history of other medical treatment H/O mammogram Personal history of other medical treatment History of blood transfusion Personal history of other specified conditions History of seizure Thrombocytopenia ([facility]/HCC) Unspecified kidney failure 04/08/2021 Renal failure 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 Very important you follow up with Dr. Chopra the neurologist on 03/16/2019. Weakness 12/01/2020 Past Surgical History: Procedure Laterality Date BREAST SURGERY 05/31/2013 Breast Surgery Reduction Procedure CT ANGIO NECK 05/09/2022 CT NECK ANGIO W AND WO IV CONTRAST 05/09/2022 [facility] CT HEAD ANGIO W AND WO IV CONTRAST 05/09/2022 CT HEAD ANGIO W AND WO IV CONTRAST 05/09/2022 [facility] OTHER SURGICAL HISTORY 01/30/2022 Intrauterine device placement OTHER SURGICAL HISTORY 08/04/2019 Breast reduction Family History Problem Relation Name Age of Onset Hypertension Mother Diabetes Mother Other (cardiac disorder) Mother Hypothyroidism Father Seizures Sister absence and GTC seizures Heart disease Other Hypothyroidism Other COPD Other Lupus Other systemic lupus erythematosus Social History Tobacco Use Smoking status: Former Types: Cigarettes Smokeless tobacco: Never Vaping Use Vaping Use: Never used Substance Use Topics Alcohol use: Never Drug use: Never Physical Exam ED Triage Vitals [11/17/23 1608] Temperature Heart Rate Respirations BP 36.4 C (97.6 F) 79 18 150/78 Pulse Ox Temp Source Heart Rate Source Patient Position 94 % Temporal Monitor Lying BP Location FiO2 (%) Left arm -- Physical Exam ED Course & MDM Diagnoses as of 11/17/231909 Contusion of back, unspecified laterality, initial encounter Fall, initial encounter Medical Decision Making CT cervical spine wo IV contrast Final Result No evidence for an acute fracture or subluxation of the cervical spine. MACRO: None Signed by: Otis Prather 11/17/2023 5:56 PM Dictation workstation: [id number] CT thoracic spine wo IV contrast Final Result No evidence of acute fracture or subluxation. No significant degenerative neural canal narrowing. Interstitial changes posteriorly in both lung bases most likely representing atelectasis or fibrosis. Signed by Tenisha Richards MD CT lumbar spine wo IV contrast Final Result No evidence of acute fracture or subluxation. No significant degenerative neural canal narrowing. Interstitial changes posteriorly in both lung bases most likely representing atelectasis or fibrosis. Signed by Tenisha Richards MD Medical Decision Making: Patient appears well nontoxic. Vital signs within normal limits. Patient treated with oral Ativan for home dose as well as intramuscular morphine. CT cervical spine, thoracic spine, lumbar spine shows no acute traumatic injury. Patient feeling improved. Will be discharged back to the assisted living facility in stable condition. Differential Diagnoses Considered: Lumbar contusion versus fracture, cervical strain versus fracture Independent Interpretation of Studies: I independently interpreted: CT cervical spine shows no acute fracture or dislocation. CT thoracic spine shows no acute fracture or dislocation. CT lumbar spine shows no acute fracture or dislocation. Escalation of Care: Appropriate for discharge and follow-up with primary care. Procedure Procedures Larry Eugene DO 11/17/231910 [facility] [place] Work Phone: [phone]) 597-505701-24-2024 History of Present illness Narrative* Valentina Munoz MD - 11/10/2023 10:30 AM EST Reema Shah is a 48 y.o. year old female patient. PCP = Jeanie Ayala MD Chief Complaint Patient presents with Pre-op Visit Patient is here to discuss possible hysterectomy. HPI Presents to discuss options regarding findings from her diagnostic laparoscopy in September 2023. Atthe time of surgery there was noted endometriosis in the cul-de-sac near the ureters, left lateral sidewall as well as on the bladder. She has a history of seizure disorder on Depakote and Keppra. Patient is wheelchair-bound. Patient had the IUD removed several weeks ago due to bleeding and she states that the bleeding has since resolved. OB History No obstetric history on file. Past Medical History: Diagnosis Date Encounter for gynecological examination (general) (routine) without abnormal findings 01/29/2021 Pap test, as part of routine gynecological examination Epilepsy (CMS/HCC) GERD (gastroesophageal reflux disease) Immunization not carried out because of patient refusal Influenza vaccination declined Leg swelling 02/25/2023 Lumbar contusion 02/25/2023 Other conditions influencing health status Hepatic Failure Other conditions influencing health status Menarche Other conditions influencing health status History of vaginal delivery Pain of left lower extremity 02/25/2023 Pelvic and perineal pain 01/29/2021 Pelvic pain in female Pelvic and perineal pain 07/01/2021 Pelvic pain in female Pelvic and perineal pain 07/01/2021 Pelvic pain in female Personal history of diseases of the blood and blood-forming organs and certain disorders involving the immune mechanism History of anemia Personal history of other diseases of the circulatory system History of hypertension Personal history of other diseases of the circulatory system History of congestive heart failure Personal history of other diseases of urinary system History of chronic kidney disease Personal history of other medical treatment H/O mammogram Personal history of other medical treatment History of blood transfusion Personal history of other specified conditions History of seizure Thrombocytopenia (CMS/HCC) Unspecified kidney failure 04/08/2021 Renal failure 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 Very important you follow up with Dr. Chopra the neurologist on 03/16/2019. Weakness 12/01/2020 Past Surgical History: Procedure Laterality Date BREAST SURGERY 05/31/2013 Breast Surgery Reduction Procedure CT ANGIO NECK 05/09/2022 CT NECK ANGIO W AND WO IV CONTRAST 05/09/2022 [facility] CT HEAD ANGIO W AND WO IV CONTRAST 05/09/2022 CT HEAD ANGIO W AND WO IV CONTRAST 05/09/2022 [facility] OTHER SURGICAL HISTORY 01/30/2022 Intrauterine device placement OTHER SURGICAL HISTORY 08/04/2019 Breast reduction Review of Systems: Constitutional: No fever or chills Respiratory: No shortness of breath, or cough Cardiovascular: No chest pain or syncope Breasts: No breast pain, no masses, no nipple discharge Gastrointestinal: No nausea, vomiting, or diarrhea, no abdominal pain Genitourinary: No dysuria or frequency Gynecology: Negative except as noted in history of present illness All other: All other systems reviewed and negative for complaint Medication Documentation Review Audit Reviewed by Valentina Munoz MD (Physician) on 11/10/23 at 1035 Medication Order Taking? Sig Documenting Provider Last Dose Status acetaminophen 500 mg capsule [id number] No Take 1 capsule (500 mg) by mouth every 6 hours if needed. Barbara Chamberlain MD Unknown Active albuterol 90 mcg/actuation inhaler [id number] No Inhale 2 puffs every 6 hours if needed. Barbara ProviderMD Past Month Active allopurinol (Zyloprim) 300 mg tablet [id number] No Take 1 tablet (300 mg) by mouth once daily. Barbara ProviderMD 10/13/2023 Active amLODIPine (Norvasc) 10 mg tablet [id number] No Take 1 tablet (10 mg) by mouth once daily. HistoricalProMD jia Unknown Active atorvastatin (Lipitor) 20 mg tablet [id number] No Take 1 tablet (20 mg) by mouth once daily at bedtime. Barbara Chamberlain MD Unknown Active benzonatate (Tessalon) 200 mg capsule [id number] No Take 1 capsule (200 mg) by mouth if needed for cough. Do not crush or chew. Historical Provider, MD Unknown Active busPIRone (Buspar) 10 mg tablet [id number] No Take 1 tablet (10 mg) by mouth 3 times a day as needed.Barbara Chamberlain MD Unknown Active calcium carbonate (Tums) 200 mg calcium chewable tablet [id number] No Chew 1 tablet (500 mg) once daily. Barbara Chamberlain MD Unknown Active calcium carbonate-vitamin D3 600 mg-10 mcg (400 unit) tablet [id number] No Take 1 tablet by mouth 2 times a day. Barbara Chamberlain MD Unknown Active carbamide peroxide (Debrox) 6.5 % otic solution [id number] No Administer into affected ear(s). USE ASDIRECTED Barbara Chamberlain MD Not Taking Active carboxymethylcellulose PF 1 % ophthalmic solution [id number] No Administer 2 drops into both eyes if needed. Q1HR Barbara Chamberlain MD Unknown Active cholecalciferol (Vitamin D-3) 1,250 mcg (50,000 unit) capsule [id number] No Take 1 capsule (50,000 Units) by mouth once a week. Barbara Chamberlain MD Unknown Active clotrimazole-betamethasone (Lotrisone) cream [id number] No Apply 1 Application topically twice a day.Barbara Chamberlain MD Unknown Active cyanocobalamin, vitamin B-12, (Vitamin B-12) 1,000 mcg tablet extended release [id number] No Take 1 tablet (1,000 mcg) by mouth once daily. Barbara Chamberlain MD Unknown Active diclofenac sodium 1 % kit [id number] No Apply 1 Application topically in the morning and 1 Application before bedtime. Barbara Chamberlain MD Unknown Active divalproex (Depakote ER) 500 mg 24 hr tablet [id number] No Take 1 tablet (500 mg) by mouth once dailyat bedtime. Barbara Chamberlain MD Unknown Active divalproex (Depakote) 250 mg EC tablet [id number] No Take 1 tablet (250 mg) by mouth once daily in the morning. Barbara Chamberlain MD 10/14/2023 Active famotidine (Pepcid) 20 mg tablet [id number] No Take 1 tablet (20 mg) by mouth once daily. Barbara Chamberlain MD Unknown Active guaiFENesin (Humibid 3) 400 mg tablet [id number] No Take 1 tablet (400 mg) by mouth every 6 hours if needed for cough. Barbara Chamberlain MD Unknown Active ibuprofen 600 mg tablet [id number] Take 1.5 tablets (900 mg) by mouth every 8 hours if needed for moderate pain (4 - 6) for up to 30 doses. Matthew Pérez MD Active levETIRAcetam (Keppra) 500 mg tablet [id number] No Take 1 tablet (500 mg) by mouth 2 times a day. Barbara Chamberlain MD 10/14/2023 Active levonorgestrel (Mirena) 21 mcg/24 hours (8 yrs) 52 mg IUD [id number] Matthew Pérez MD Active levothyroxine (Synthroid, Levoxyl) 25 mcg tablet [id number] No Take 1 tablet (25 mcg) by mouth once daily. Barbara Chamberlain MD Unknown Active lisinopril 20 mg tablet [id number] No Take 1 tablet (20 mg) by mouth 2 times a day. Barbara Chamberlain MD Unknown Active loratadine (Claritin) 10 mg tablet [id number] No Take 1 tablet (10 mg) by mouth. Before meals Barbara Chamberlain MD Taking Active Discontinued 11/08/23 1043 LORazepam (Ativan) 1 mg tablet [id number] Take 2 tablet twice daily and 1 tab daily PRN Jeanie Ayala MD Active magnesium oxide (Mag-Ox) 400 mg tablet [id number] No Take 1 tablet (400 mg) by mouth once daily. Barbara Chamberlain MD Unknown Active meclizine (Antivert) 25 mg tablet [id number] No Take 1-2 tablets (25-50 mg) by mouth 3 times a day asneeded (otitis media). Barbara Chamberlain MD Taking Active melatonin 5 mg tablet [id number] No Take 1 tablet (5 mg) by mouth once daily at bedtime. Barbara Chamberlain MD Not Taking Active methyl salicylate-menthol (Icy Hot) 29-7.6 % ointment ointment [id number] No Apply 1 Application topically every 12 hours if needed. Barbara Chamberlain MD Taking Active metoprolol tartrate (Lopressor) 25 mg tablet [id number] No Take 1 tablet (25 mg) by mouth 2 times a day. Jeanie Ayala MD Unknown Active omeprazole (PriLOSEC) [address] capsule [id number] No Take 1 capsule (20 mg) by mouth once daily. Historical Provider, Unknown Active potassium chloride ER (Micro-K) 10 mEq ER capsule [id number] No Take 2 capsules (20 mEq) by mouth twice a day. Historical Provider, Unknown Active primidone (Mysoline) 50 mg tablet [id number] No Take 2 tablets (100 mg) by mouth 2 times a day. Historical Provider, Unknown Active sennosides-docusate sodium (Lani-Colace) 8.6-50 mg tablet [id number] No Take 2 tablets by mouth once daily as needed for constipation. Historical Provider, Unknown Active sertraline (Zoloft) 100 mg tablet [id number] No Take 1 tablet (100 mg) by mouth 2 times a day. Jeanie Ayala MD Unknown Active BP 112/64 Ht 1.397 m (4' 7) BMI 38.28 kg/m PHYSICAL EXAMINATION: General: No acute distress Eye: Intraocular movements are intact HEENT: Normocephalic Respiratory: Respirations are nonlabored Gastrointestinal: Nondistended Musculoskeletal: Normal range of motion Neurologic: Alert and oriented x3 Psychiatric: Cooperative, appropriate mood and affect. Problem List Items Addressed This Visit None Visit Diagnoses Endometriosis - Primary Relevant Orders Referral to Gynecology Provider Impression: 1. Endometriosis 2. History of seizure disorder Informed of options for endometriosis such as control pills, Lupron or hysterectomy. Patient states that she cannot tolerate control pills and is not interested in Lupron. In light of endometriosis involving the cul-de-sac near the ureters as well as the bladder, recommend referring [facility] minimally invasive annealing oven operator in [place] for surgery. documented in this [facility] Work Phone: 1(503) 202-889301-22-2024 History of Present illness Narrative* Jeanie Ayala MD - 11/08/2023 10:45 AM EST Subjective Patient ID: Reema Shah is a 48 y.o. female who presents for Follow-up (MED REFILL TODAY). HERE FOR MED REFILL No complaint Review of Systems Constitutional: Negative. Negative for chills and fever. HENT: Negative. Negative for congestion. Eyes: Negative. Negative for discharge. Respiratory: Negative. Negative for cough, shortness of breath and wheezing. Cardiovascular: Negative. Negative for chest pain, palpitations and leg swelling. Gastrointestinal: Negative. Negative for abdominal distention, abdominal pain, constipation, diarrhea, nausea and vomiting. Endocrine: Negative. Genitourinary: Negative. Negative for dysuria and urgency. Musculoskeletal: Negative. Negative for back pain, joint swelling and neck stiffness. Skin: Negative. Negative for rash. Allergic/Immunologic: Negative. Negative for immunocompromised state. Neurological: Negative. Negative for light-headedness, numbness and headaches. Hematological: Negative. Negative for adenopathy. Psychiatric/Behavioral: Negative. Negative for agitation, behavioral problems and confusion. All other systems reviewed and are negative. Objective Physical Exam Vitals reviewed. Constitutional: General: She is not in acute distress. Appearance: Normal appearance. HENT: Head: Normocephalic and atraumatic. Nose: Nose normal. Eyes: Conjunctiva/sclera: Conjunctivae normal. Pupils: Pupils are equal, round, and reactive to light. Neck: Vascular: No carotid bruit. Cardiovascular: Rate and Rhythm: Normal rate and regular rhythm. Pulses: Normal pulses. Heart sounds: No gallop. Pulmonary: Effort: Pulmonary effort is normal. No respiratory distress. Breath sounds: Normal breath sounds. No wheezing. Abdominal: General: Bowel sounds are normal. Palpations: Abdomen is soft. Tenderness: There is no abdominal tenderness. Musculoskeletal: General: Normal range of motion. Cervical back: Normal range of motion. No rigidity. Lymphadenopathy: Cervical: No cervical adenopathy. Skin: General: Skin is warm. Findings: No rash. Neurological: General: No focal deficit present. Mental Status: She is alert and oriented to person, place, and time. Psychiatric: Mood and Affect: Mood normal. Behavior: Behavior normal. BP 138/83 (BP Location: Left arm, Patient Position: Sitting) Pulse 75 Hemoglobin A1C Date/Time Value Ref Range Status 09/01/2023 07:54 AM 4.8 see below % Final Assessment/Plan Problem List Items Addressed This Visit Anxiety Relevant Medications LORazepam (Ativan) 1 mg tablet Depression, major, single episode, severe (CMS/HCC) Seizure-like activity (CMS/HCC) Sedative, hypnotic or anxiolytic dependence with withdrawal, unspecified (CMS/HCC) Chronic systolic (congestive) heart failure (CMS/HCC) OARRS HAS BEEN REVIEWED AND IS CONSISTENT WITH PRESCRIBED MEDICATIONS, CONSIDERED THE RISK OF ABUSE, DEPENDENCE, ADDICTION AND DIVERSION, MEDICATION IS FELT TO BE CLINICALLY APPROPRIATE ON THE DOCUMENTED DIAGNOSIS ALL ASSESSED CHRONIC CONDITIONS ARE STABLE OR ADDRESSED. FU 1 MO MED REFILL documented in this [facility] Work Phone: [phone]) 144-202601-12-2024 History of Present illness Narrative* Matthew Pérez MD - 10/29/2023 10:45 AM EST Subjective Patient ID: Reema Shah is a 48 y.o. female who presents for Post-op Follow-up (Patient is here for a 2 week post op from and IUD placement and Diagnostic Laparoscopic surgery. Patient states she's still in pain and sore. Patient states she's been bleeding since surgery. ). BRANDEN Benavidez is a 48-year-old who comes in for a postop check after laparoscopy for chronic pelvic pain and placement of a Mirena IUD for irregular bleeding. Patient will had been told that she had presumptively endometriosis and reports that Dr. Velasquez put in an IUD to help with the endometriosis. However she felt that it was not helping at all and had it removed several months back at which point shestarted having irregular bleeding and wished to have it replaced. She reports that the endometriosis presumptive diagnosis has never really been confirmed previously but had continued with irregular unpredictable pain Review of Systems Objective Physical Exam Patient in no acute distress Incisions intact External genitalia revealed no lesions the vagina had a small amount of blood IUD string was seen and removed without difficulty Assessment/Plan Patient is here for 2-week postop check after laparoscopy at which point she was found to have endometriosis on the bowel and the posterior cul-de-sac adjacent to the ureters. Discussed with the patient the treatment option of doing 6 to 12 months of Lupron. Patient is not interested in medical management and wishes to pursue a total hysterectomy. Patient will be referred to Dr. Munoz for further surgical management. Patient also wished to have the IUD removed and it was removed today without difficulty Matthew Pérez MD 10/29/23 11:25 AM * Trini Mckinnon - 10/29/2023 10:45 AM EST THIS VISIT HAS BEEN ADMINISTRATIVELY CLOSED BECAUSE THE PROVIDER RESPONSIBLE FOR FURTHER COMPLETIONIS NO LONGER AVAILABLE. documented in this [facility] Work Phone: [phone] 326-201201-08-2024 History of Present illness Narrative* Mejia Cullen MD - 10/25/2023 10:30 AM EST Images from the original note were not included. [facility] [address] [place] [id number] Dept: [phone] Dept Loc: [phone] [facility] Consultation for Reema Shah : 1975 Today's Date: 10/25/2023 PCP: Jeanie Ayala Patient was seen accompanied by living facility staff. Patient gave permission to discuss medical information with facility staff present. Referral Source: Rain Shah is a 48 y.o. female with past medical history of epilepsy (on Keppra and lorazepam), tremors, CKD, anxiety, HTN, GERD, hypothyroidism, obesity, psoriasis, TTP who reports with chief complaint of frequent falls. Symptoms: Frequent falls. Attributes to LUE and LLE weakness and LE shaking. Unclear etiology for Lhemiplegia - patient reports she was told she had a slight stroke in the past but no chronic focal findings on CT Brains. Patient cannot get MRI due to metal in abdomen. Frequent visits to ED due to falls with headstrike and RUE injuries. Most fall situations documented involve reaching for something or transferring. CT heads and radiographs have thus far been negative. Also endorses vertigo ifshe bends over. Manner of onset: Reports symptoms began after a 1994 head injury. Function: Mostly using WC for mobility. Only ambulates with walker short distances in her room to get to bathroom. Ambulating worsens pain in low back and bilateral knees and calves. Has powerchair. Lives in assisted living facility ([facility] Moving to [facility] next month. Workup: CT Brain, CT C and L spine Treatments tried: PT last year - did see improvement. PMH: Past Medical History: Diagnosis Date Anxiety Chronic kidney disease Epilepsy (HCC) Essential hypertension Gastro-esophageal reflux disease without esophagitis Hypokalemia Hypothyroidism Obesity Personal history of urinary (tract) infections Psoriasis Repeated falls Thrombocytopenia (HCC) PSH: Past Surgical History: Procedure Laterality Date BREAST REDUCTION Review of Systems: General: Denies fevers, chills, weight loss, weight gain Skin: Denies rashes ulcerations or lesions HEENT: Denies tinnitus, vertigo, blurry vision, headache Cardio: Denies chest pain, palpitations or edema Respiratory: Denies cough, sob, wheezing GI: Denies nausea, vomiting, constipation, diarrhea, abdominal pain, history of GI bleed : Denies incontinence, dysuria, frequency, urgency MSK: as per HPI Neuro: as Per HPI Psychiatric: Denies any change in mood, anxiety or depression Medications: Current Outpatient Medications Medication Sig Dispense Refill acetaminophen (Tylenol) 500 MG tablet Take by mouth. albuterol 108 (90 Base) MCG/ACT inhaler allopurinol (Zyloprim) 300 MG tablet Take 300 mg by mouth in the morning. amLODIPine (Norvasc) 10 MG tablet Take 10 mg by mouth in the morning. atorvastatin (Lipitor) 20 MG tablet benzonatate (Tessalon) 200 MG capsule Take by mouth. busPIRone (Buspar) 10 MG tablet Calcium + Vitamin D3 600-10 MG-MCG tablet Cyanocobalamin ER 1000 MCG tablet controlled-release Take 1,000 mcg by mouth in the morning. Diclofenac Sodium (Voltaren) 1 % gel Apply topically every 12 hours. divalproex (Depakote ER) 500 MG 24 hr tablet Take 500 mg by mouth. divalproex (Depakote ER) 500 MG 24 hr tablet Take 1 tablet (500 mg) by mouth 2 times daily. 30 tablet 2 flurbiprofen (Ansaid) 100 MG tablet Take by mouth every 8 hours as needed. guaiFENesin (Humibid 3) 400 MG tablet Take 400 mg by mouth every 6 hours as needed. ibuprofen 600 MG tablet Take by mouth. levETIRAcetam (Keppra) 500 MG tablet levothyroxine (Synthroid, Levoxyl) 25 MCG tablet lisinopril 20 MG tablet loperamide (Imodium A-D) 2 MG tablet Take by mouth as needed for diarrhea. loratadine (Claritin) 10 MG tablet Take 10 mg by mouth. LORazepam (Ativan) 1 MG tablet magnesium oxide (Mag-Ox) 400 MG tablet Take 400 mg by mouth in the morning. meclizine (Antivert) 25 MG tablet Take 25 mg by mouth 3 times daily as needed. metoprolol tartrate (Lopressor) 25 MG tablet potassium chloride ER (Micro-K) 10 MEQ ER capsule primidone (Mysoline) 50 MG tablet sertraline (Zoloft) 100 MG tablet Take 100 mg by mouth in the morning and 100 mg in the evening. clotrimazole-betamethasone (Lotrisone) cream divalproex (Depakote ER) 250 MG 24 hr tablet famotidine (Pepcid) 20 MG tablet senna-docusate (Lani-Colace) 8.6-50 MG tablet Take 2 tablets by mouth Nightly as needed. No current facility-administered medications for this visit. Allergies: Allergies Allergen Reactions Gabapentin Nausea And Vomiting and Unknown Hydrocodone-Acetaminophen Other and Unknown Vomiting Morphine Other, Unknown and Nausea And Vomiting Vomiting Ondansetron Other and Nausea And Vomiting Vomiting Other Phenytoin Unknown Promethazine Other, Unknown and Nausea And Vomiting Sick Acetaminophen Rash Other reaction(s): Rash Azithromycin Rash, Unknown and Nausea And Vomiting Codeine Other, Rash, Unknown and Nausea And Vomiting Vomiting Erythromycin Rash and Unknown Erythromycin Base Rash and Unknown Hydrocodone Rash and Unknown Hydromorphone Rash and Unknown Penicillins Rash and Unknown Tramadol Rash and Unknown Social History: Denies tobacco / alcohol /illicit drug use Work Status: Not currently working or driving. Family History: Family History Problem Relation Name Age of Onset Heart disease Mother Parkinson's Disease Mother Dementia Mother Thyroid disease Father Asthma Sister Seizures Sister Asthma Sister Asthma Brother No Known Problems Maternal Grandmother No Known Problems Maternal Grandfather No Known Problems Paternal Grandmother No Known Problems Paternal Grandfather No Known Problems Daughter Physical Examination: VITALS: Vitals: 10/25/23 1027 BP: 135/82 Pulse: 72 GEN APPEARANCE: Pleasant, well developed, well nourished in no acute distress; PSYCH: Normal mood and affect HEENT: Normocephalic; EOMI; MMM RESP: Breathing non-labored CARDIO: Capillary refill intact in distal extremities SKIN: lesion noted: none Neurologic Exam: Balance-Based Torso Weighting (BBTW) Exam: Perturbation Gradin = No movement 1 = Mild sway without LE movement 2 = Moderate-Severe sway without LE movement 3 = Mild LE movement 4 = Moderate-Severe LE movement or multiple LE movements Pre BalanceWear-Rx: Perturbations Anterior - Xiphoid: 2 Anterior - Umbilicus: 2 Posterior - Upper Back/Thoracic Midline: 2 Posterior - Lower Back/Lumbar Midline: 2 Lateral-Left Shoulder: 2 Lateral-Right Shoulder: 2 Lateral-Left Waist: 2 Lateral-Right Waist: 2 Rotation: Left Shoulder: 2 Right Shoulder: 2 Left Waist: 2 Right Waist: 2 Total Score: 24 Post BalanceWear-Rx: Perturbations Anterior - Xiphoid: 1 Anterior - Umbilicus: 1 Posterior - Upper Back/Thoracic Midline: 1 Posterior - Lower Back/Lumbar Midline: 1 Lateral-Left Shoulder: 1 Lateral-Right Shoulder: 1 Lateral-Left Waist: 1 Lateral-Right Waist: 1 Rotation: Left Shoulder: 2 Right Shoulder: 2 Left Waist: 2 Right Waist: 2 Total Score: 16 Measurements: Not obtained today. Weights: 1/2 lbs.: none 1/4 lbs.: R shoulder x1, umbilicus x1, T spine x1, L spine x1, R lateral hip x1, L hip x1 1/8 lbs.: L shoulder x1, xiphoid x1, R lateral hip x1 1/16 lbs.: none Patient Response: Description: Pre-BalanceWear vest gait impaired by severe tremors and LE weakness. Small, short, slow steps can only tolerate ambulating a few feet before low back pain worsens. While improvement in pertubation testing was seen with addition of BalanceWear vest, patient could not tolerate ambulating with vest due to increased tremors and pain from prolonged standing from physical exam. Cerebellar: BRODY's: mildly slow bilaterally Mild swaying with Romberg Sensory: LT: intact all 4 limbs Motor: Tone was normal in all 4 limbs. No cogwheel rigidity in bilateral UE RUE: Shoulder Abduction: 5/5, Biceps: 4/5, Wrist extension: 5/5, Triceps: 4/5, Finger flexors: 5/5,Finger extensors: 4/5 RLE: Hip flexors: 4/5, Knee extension: 5/5, ankle DF: 5/5, ankle PF: 5/5 LUE:Shoulder Abduction: 5/5, Biceps: 4/5, Wrist extension: 5/5, Triceps: 4/5, Finger flexors: 5/5, Finger extensors: 4/5 LLE: Hip flexors: 4/5, Knee extension: 5/5, ankle DF: 5/5, ankle PF: 5/5 Labs: No results found for: WBC, HGB, HCT, MCV, PLT No results found for: GLUCOSE, CALCIUM, NA, K, CO2, CL, BUN, CREATININE IMAGING/PROCEDURES: Recent Holter Monitor and Nuclear Stress Test at [facility] 10/05/23 for pre-op testing were negative. CT Head 09/16/23 (report only, [facility]) The ventricles, cisterns and sulci are prominent, consistent with mild diffuse volume loss. Areas of white matter low attenuation are nonspecific but likely related to chronic microvascular disease. There is intracranial atherosclerosis. Hill-white differentiation is preserved. No acute intracranial hemorrhage or mass effect. No midline shift. Patent basal cisterns. No extraaxial fluid collections. The calvaria is intact. Unchanged findings of hyperostosis frontalis interna. The visualized paranasal sinuses and mastoid air cells are clear. CT C spine 08/25/23 (report only, [facility]) Cervical spine: Alignment: Stable alignment. Cranial cervical junction: Intact. Fracture: No detected fracture. Vertebra and intervertebral disc spaces: Stable degree of degenerative change without evidence significant canal narrowing. Paravertebral soft tissues: No acute detected abnormality. Mild arterial vascular calcifications. Similar dependent ventilatory changes visualized portion of the lungs. CT L Spine 01/21/23 No acute fracture or subluxation. No vertebral body or disc height loss. Scattered small marginal osteophytes. Mild facet arthropathy in the lower lumbar spine. No destructive bone lesion in the lumbar spine. There is a 5 mm sclerotic lesion in the right ilium favored to represent a bone island in a patient with no known history of malignancy. Mild bilateral sacroiliac joint osteoarthritis. Intrauterine device. IMPRESSION: Reema Shah is a 48 y.o. female with past medical history of epilepsy (on Keppra and lorazepam), tremors, CKD, anxiety, HTN, GERD, hypothyroidism, obesity, psoriasis, TTP who reports with chief complaint of frequent falls and imbalance. These appear to be due to LE weakness from deconditioning and low back/MSK pain as well as severe intention tremor in all 4 limbs. PLAN: - Patient would prefer trial of low back brace and therapy before using BalanceWear Vest. DME orderfaxed to [facility]. - External Referrals to PT and OT - new power chair eval: Custom fitted power chair. Current chair is non- functional due to disrepairand over 5 years old. Mobility impairment due to LE weakness, back pain and intention tremor of legs. Cannot tolerate manual wheelchair due to muskuloskeletal pain. Prescription faxed to [facility]. - Followup in 2 months - The plan was discussed with the patient/family and they report full understanding. Mejia Cullen MD Physical Medicine and Rehabilitation documented in this [facility]01-08-2024 History of Present illness Narrative* Mejia Cullen MD - 10/25/2023 10:30 AM EST Images from the original note were not included. [facility] [address] [place] [id number] Dept: [phone] Dept Loc: [phone] [facility] Medicine [facility] Rehabilitation Clinic Consultation for Reema Shah : 1975 Today's Date: 10/25/2023 PCP: Jeanie Ayala Patient was seen accompanied by living facility staff. Patient gave permission to discuss medical information with facility staff present. Referral Source: Rain Shah is a 48 y.o. female with past medical history of epilepsy (on Keppra and lorazepam), tremors, CKD, anxiety, HTN, GERD, hypothyroidism, obesity, psoriasis, TTP who reports with chief complaint of frequent falls. Symptoms: Frequent falls. Attributes to LUE and LLE weakness and LE shaking. Unclear etiology for Lhemiplegia - patient reports she was told she had a slight stroke in the past but no chronic focal findings on CT Brains. Patient cannot get MRI due to metal in abdomen. Frequent visits to ED due to falls with headstrike and RUE injuries. Most fall situations documented involve reaching for something or transferring. CT heads and radiographs have thus far been negative. Also endorses vertigo ifshe bends over. Manner of onset: Reports symptoms began after a 1993 head injury. Function: Mostly using WC for mobility. Only ambulates with walker short distances in her room to get to bathroom. Ambulating worsens pain in low back and bilateral knees and calves. Has powerchair. Lives in assisted living facility ([facility]). Moving to [facility] next month. Workup: CT Brain, CT C and L spine Treatments tried: PT last year - did see improvement. PMH: Past Medical History: Diagnosis Date Anxiety Chronic kidney disease Epilepsy (HCC) Essential hypertension Gastro-esophageal reflux disease without esophagitis Hypokalemia Hypothyroidism Obesity Personal history of urinary (tract) infections Psoriasis Repeated falls Thrombocytopenia (HCC) PSH: Past Surgical History: Procedure Laterality Date BREAST REDUCTION Review of Systems: General: Denies fevers, chills, weight loss, weight gain Skin: Denies rashes ulcerations or lesions HEENT: Denies tinnitus, vertigo, blurry vision, headache Cardio: Denies chest pain, palpitations or edema Respiratory: Denies cough, sob, wheezing GI: Denies nausea, vomiting, constipation, diarrhea, abdominal pain, history of GI bleed : Denies incontinence, dysuria, frequency, urgency MSK: as per HPI Neuro: as Per HPI Psychiatric: Denies any change in mood, anxiety or depression Medications: Current Outpatient Medications Medication Sig Dispense Refill acetaminophen (Tylenol) 500 MG tablet Take by mouth. albuterol 108 (90 Base) MCG/ACT inhaler allopurinol (Zyloprim) 300 MG tablet Take 300 mg by mouth in the morning. amLODIPine (Norvasc) 10 MG tablet Take 10 mg by mouth in the morning. atorvastatin (Lipitor) 20 MG tablet benzonatate (Tessalon) 200 MG capsule Take by mouth. busPIRone (Buspar) 10 MG tablet Calcium + Vitamin D3 600-10 MG-MCG tablet Cyanocobalamin ER 1000 MCG tablet controlled-release Take 1,000 mcg by mouth in the morning. Diclofenac Sodium (Voltaren) 1 % gel Apply topically every 12 hours. divalproex (Depakote ER) 500 MG 24 hr tablet Take 500 mg by mouth. divalproex (Depakote ER) 500 MG 24 hr tablet Take 1 tablet (500 mg) by mouth 2 times daily. 30 tablet 2 flurbiprofen (Ansaid) 100 MG tablet Take by mouth every 8 hours as needed. guaiFENesin (Humibid 3) 400 MG tablet Take 400 mg by mouth every 6 hours as needed. ibuprofen 600 MG tablet Take by mouth. levETIRAcetam (Keppra) 500 MG tablet levothyroxine (Synthroid, Levoxyl) 25 MCG tablet lisinopril 20 MG tablet loperamide (Imodium A-D) 2 MG tablet Take by mouth as needed for diarrhea. loratadine (Claritin) 10 MG tablet Take 10 mg by mouth. LORazepam (Ativan) 1 MG tablet magnesium oxide (Mag-Ox) 400 MG tablet Take 400 mg by mouth in the morning. meclizine (Antivert) 25 MG tablet Take 25 mg by mouth 3 times daily as needed. metoprolol tartrate (Lopressor) 25 MG tablet potassium chloride ER (Micro-K) 10 MEQ ER capsule primidone (Mysoline) 50 MG tablet sertraline (Zoloft) 100 MG tablet Take 100 mg by mouth in the morning and 100 mg in the evening. clotrimazole-betamethasone (Lotrisone) cream divalproex (Depakote ER) 250 MG 24 hr tablet famotidine (Pepcid) 20 MG tablet senna-docusate (Lani-Colace) 8.6-50 MG tablet Take 2 tablets by mouth Nightly as needed. No current facility-administered medications for this visit. Allergies: Allergies Allergen Reactions Gabapentin Nausea And Vomiting and Unknown Hydrocodone-Acetaminophen Other and Unknown Vomiting Morphine Other, Unknown and Nausea And Vomiting Vomiting Ondansetron Other and Nausea And Vomiting Vomiting Other Phenytoin Unknown Promethazine Other, Unknown and Nausea And Vomiting Sick Acetaminophen Rash Other reaction(s): Rash Azithromycin Rash, Unknown and Nausea And Vomiting Codeine Other, Rash, Unknown and Nausea And Vomiting Vomiting Erythromycin Rash and Unknown Erythromycin Base Rash and Unknown Hydrocodone Rash and Unknown Hydromorphone Rash and Unknown Penicillins Rash and Unknown Tramadol Rash and Unknown Social History: Denies tobacco / alcohol /illicit drug use Work Status: Not currently working or driving. Family History: Family History Problem Relation Name Age of Onset Heart disease Mother Parkinson's Disease Mother Dementia Mother Thyroid disease Father Asthma Sister Seizures Sister Asthma Sister Asthma Brother No Known Problems Maternal Grandmother No Known Problems Maternal Grandfather No Known Problems Paternal Grandmother No Known Problems Paternal Grandfather No Known Problems Daughter Physical Examination: VITALS: Vitals: 10/25/23 1027 BP: 135/82 Pulse: 72 GEN APPEARANCE: Pleasant, well developed, well nourished in no acute distress; PSYCH: Normal mood and affect HEENT: Normocephalic; EOMI; MMM RESP: Breathing non-labored CARDIO: Capillary refill intact in distal extremities SKIN: lesion noted: none Neurologic Exam: Balance-Based Torso Weighting (BBTW) Exam: Perturbation Gradin = No movement 1 = Mild sway without LE movement 2 = Moderate-Severe sway without LE movement 3 = Mild LE movement 4 = Moderate-Severe LE movement or multiple LE movements Pre BalanceWear-Rx: Perturbations Anterior - Xiphoid: 2 Anterior - Umbilicus: 2 Posterior - Upper Back/Thoracic Midline: 2 Posterior - Lower Back/Lumbar Midline: 2 Lateral-Left Shoulder: 2 Lateral-Right Shoulder: 2 Lateral-Left Waist: 2 Lateral-Right Waist: 2 Rotation: Left Shoulder: 2 Right Shoulder: 2 Left Waist: 2 Right Waist: 2 Total Score: 24 Post BalanceWear-Rx: Perturbations Anterior - Xiphoid: 1 Anterior - Umbilicus: 1 Posterior - Upper Back/Thoracic Midline: 1 Posterior - Lower Back/Lumbar Midline: 1 Lateral-Left Shoulder: 1 Lateral-Right Shoulder: 1 Lateral-Left Waist: 1 Lateral-Right Waist: 1 Rotation: Left Shoulder: 2 Right Shoulder: 2 Left Waist: 2 Right Waist: 2 Total Score: 16 Measurements: Not obtained today. Weights: 1/2 lbs.: none 1/4 lbs.: R shoulder x1, umbilicus x1, T spine x1, L spine x1, R lateral hip x1, L hip x1 1/8 lbs.: L shoulder x1, xiphoid x1, R lateral hip x1 1/16 lbs.: none Patient Response: Description: Pre-BalanceWear vest gait impaired by severe tremors and LE weakness. Small, short, slow steps can only tolerate ambulating a few feet before low back pain worsens. While improvement in pertubation testing was seen with addition of BalanceWear vest, patient could not tolerate ambulating with vest due to increased tremors and pain from prolonged standing from physical exam. Cerebellar: BRODY's: mildly slow bilaterally Mild swaying with Romberg Sensory: LT: intact all 4 limbs Motor: Tone was normal in all 4 limbs. No cogwheel rigidity in bilateral UE RUE: Shoulder Abduction: 5/5, Biceps: 4/5, Wrist extension: 5/5, Triceps: 4/5, Finger flexors: 5/5,Finger extensors: 4/5 RLE: Hip flexors: 4/5, Knee extension: 5/5, ankle DF: 5/5, ankle PF: 5/5 LUE:Shoulder Abduction: 5/5, Biceps: 4/5, Wrist extension: 5/5, Triceps: 4/5, Finger flexors: 5/5, Finger extensors: 4/5 LLE: Hip flexors: 4/5, Knee extension: 5/5, ankle DF: 5/5, ankle PF: 5/5 Labs: No results found for: WBC, HGB, HCT, MCV, PLT No results found for: GLUCOSE, CALCIUM, NA, K, CO2, CL, BUN, CREATININE IMAGING/PROCEDURES: Recent Holter Monitor and Nuclear Stress Test at [facility] 10/05/23 for pre-op testing were negative. CT Head 09/16/23 (report only, [facility]) The ventricles, cisterns and sulci are prominent, consistent with mild diffuse volume loss. Areas of white matter low attenuation are nonspecific but likely related to chronic microvascular disease. There is intracranial atherosclerosis. Hill-white differentiation is preserved. No acute intracranial hemorrhage or mass effect. No midline shift. Patent basal cisterns. No extraaxial fluid collections. The calvaria is intact. Unchanged findings of hyperostosis frontalis interna. The visualized paranasal sinuses and mastoid air cells are clear. CT C spine 08/25/23 (report only, [facility]) Cervical spine: Alignment: Stable alignment. Cranial cervical junction: Intact. Fracture: No detected fracture. Vertebra and intervertebral disc spaces: Stable degree of degenerative change without evidence significant canal narrowing. Paravertebral soft tissues: No acute detected abnormality. Mild arterial vascular calcifications. Similar dependent ventilatory changes visualized portion of the lungs. CT L Spine 01/21/23 No acute fracture or subluxation. No vertebral body or disc height loss. Scattered small marginal osteophytes. Mild facet arthropathy in the lower lumbar spine. No destructive bone lesion in the lumbar spine. There is a 5 mm sclerotic lesion in the right ilium favored to represent a bone island in a patient with no known history of malignancy. Mild bilateral sacroiliac joint osteoarthritis. Intrauterine device. IMPRESSION: Reema Shah is a 48 y.o. female with past medical history of epilepsy (on Keppra and lorazepam), tremors, CKD, anxiety, HTN, GERD, hypothyroidism, obesity, psoriasis, TTP who reports with chief complaint of frequent falls and imbalance. These appear to be due to LE weakness from deconditioning and low back/MSK pain as well as severe intention tremor in all 4 limbs. PLAN: - Patient would prefer trial of low back brace and therapy before using BalanceWear Vest. DME orderfaxed to [employer]. - External Referrals to PT and OT - Face to face evaluation performed by this provider 10/25/23. New power chair eval: Custom fitted power chair. Current chair is non-functional due to disrepair and over 5 years old. Mobility impairment due to LE weakness, back pain and intention tremor of legs. Patient unable to safely use a cane, walker or wheelchair due to weakness, spasticity and pain. Mobility impairments cause limitations in daily mobility and activities of daily living. - Followup in 2 months - The plan was discussed with the patient/family and they report full understanding. Mejia Cullen MD Physical Medicine and Rehabilitation documented in this [facility]01-08-2024 Miscellaneous Notes* Addendum Note - Mejia Cullen MD - 10/25/2023 10:30 AM ESTAddended by: MEJIA CULLEN on: 11/02/2023 02:57 PM Modules accepted: Orders documented in this [facility]01-08-2024 Note* Addendum Note - Mejia Cullen MD - 10/25/2023 10:30 AM ESTAddended by: MEJIA CULLEN on: 11/02/2023 02:57 PM Modules accepted: [id number] Emergency department Note* Lit Ledezma MD - 10/02/2023 1:06 AM EST Patient is a 48-year-old female who is a permanent resident of the [facility]. She presents with a chief complaint of injuries following a mechanical fall. She complains of right elbowpain, right shoulder pain, and head pain. She apparently fell somehow backwards and sideways landing on her right side and striking her head on the joystick of her motorized wheelchair. No loss of consciousness. This was a witnessed event. She is not on blood thinners. Review of Systems Physical Exam Labs Reviewed - No data to display No orders to display Procedures Medical Decision Making Patient is a 48-year-old female from a local assisted living facility- independent living facility for evaluation following a witnessed mechanical fall. I do not see any signs of trauma to the right elbow and shoulder. She has full range of motion. No sign of trauma to the head. No neurologic complaints. She is not on blood thinners. She can be returned to the [facility]. Diagnoses as of 10/02/23130 Fall, initial encounter Lit Ledezma MD 10/02/23130 [facility] [place] [facility] Phone: [phone]) 979-307412-16-2023 Physician Emergency department Note* Lit Ledezma MD - 10/02/2023 1:06 AM EST Patient is a 48-year-old female who is a permanent resident of the [facility]. She presents with a chief complaint of injuries following a mechanical fall. She complains of right elbowpain, right shoulder pain, and head pain. She apparently fell somehow backwards and sideways landing on her right side and striking her head on the joystick of her motorized wheelchair. No loss of consciousness. This was a witnessed event. She is not on blood thinners. Review of Systems Physical Exam Labs Reviewed - No data to display No orders to display Procedures Medical Decision Making Patient is a 48-year-old female from a local assisted living facility- independent living facility for evaluation following a witnessed mechanical fall. I do not see any signs of trauma to the right elbow and shoulder. She has full range of motion. No sign of trauma to the head. No neurologic complaints. She is not on blood thinners. She can be returned to the [facility]. Diagnoses as of 10/02/23130 Fall, initial encounter Lit Ledezma MD 10/02/23130 [facility] [place] Work Phone: [phone]) 723-860812-05-2023 History of Present illness Narrative* Everett Haywood MD - 09/21/2023 1:30 PM EST No chief complaint on file. HPI: I was requested b Dr. Ayala and Dr. Pérez to evaluate this patient in consultation for cardiac assessment. Mrs. Reema Shah is a 48 y.o. year old former smoker female patient with extensive prior medical history significant for hypertension, hyperlipidemia, heart failure, thrombocytopenia, CKD stage III, GERD, morbid obesity, anxiety, depression, hirsutism, former medication addiction, coming forpreoperative assessment of gynecological procedure for endometriosis. She is currently asymptomaticfrom the cardiac standpoint, but she is physically limited due to wheel chair. She denies chest pain, shortness of breath, palpitations, leg edema, lightheadedness, headaches, fever, chills, orthopnea, paroxysmal nocturnal dyspnea or syncope. Notably, she endorses periods of very elevated BP (230mmHg) that improves upon getting medication at the ED. EKG shows normal sinus rhythm with no signs of ACS. 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 The echocardiogram showed normal LVEF with no wall motion abnormalities. Pseudonormal relaxation pattern of left ventricle diastolic filling. Past Medical History Past Medical History: Diagnosis Date Encounter for gynecological examination (general) (routine) without abnormal findings 01/29/2021 Pap test, as part of routine gynecological examination Immunization not carried out because of patient refusal Influenza vaccination declined Leg swelling 02/25/2023 Lumbar contusion 02/25/2023 Other conditions influencing health status Hepatic Failure Other conditions influencing health status Menarche Other conditions influencing health status History of vaginal delivery Pain of left lower extremity 02/25/2023 Pelvic and perineal pain 01/29/2021 Pelvic pain in female Pelvic and perineal pain 07/01/2021 Pelvic pain in female Pelvic and perineal pain 07/01/2021 Pelvic pain in female Personal history of diseases of the blood and blood-forming organs and certain disorders involving the immune mechanism History of anemia Personal history of other diseases of the circulatory system History of hypertension Personal history of other diseases of the circulatory system History of congestive heart failure Personal history of other diseases of urinary system History of chronic kidney disease Personal history of other medical treatment H/O mammogram Personal history of other medical treatment History of blood transfusion Personal history of other specified conditions History of seizure Unspecified kidney failure 04/08/2021 Renal failure 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 Very important you follow up with Dr. Chopra the neurologist on 03/16/2019. Weakness 12/01/2020 Past Surgical History Past Surgical History: Procedure Laterality Date BREAST SURGERY 05/31/2013 Breast Surgery Reduction Procedure CT ANGIO NECK 05/09/2022 CT NECK ANGIO W AND WO IV CONTRAST 05/09/2022 [facility] CT HEAD ANGIO W AND WO IV CONTRAST 05/09/2022 CT HEAD ANGIO W AND WO IV CONTRAST 05/09/2022 [facility] OTHER SURGICAL HISTORY 01/30/2022 Intrauterine device placement OTHER SURGICAL HISTORY 08/04/2019 Breast reduction Past Family History Family History Problem Relation Name Age of Onset Hypertension Mother Diabetes Mother Other (cardiac disorder) Mother Hypothyroidism Father Seizures Sister absence and GTC seizures Heart disease Other Hypothyroidism Other COPD Other Lupus Other systemic lupus erythematosus Allergy History Allergies Allergen Reactions Azithromycin Unknown Codeine Unknown Erythromycin Base Unknown Hydrocodone-Acetaminophen Unknown Hydromorphone Unknown Neurontin [Gabapentin] Unknown Ondansetron Hcl Other Penicillins Unknown Phenytoin Unknown Promethazine Unknown Tramadol Unknown Past Social History Social History Socioeconomic History Marital status: Spouse name: None Number of children: None Years of education: None Highest education level: None Occupational History None Tobacco Use Smoking status: Former Types: Cigarettes Smokeless tobacco: Never Vaping Use Vaping Use: Never used Substance and Sexual Activity Alcohol use: Never Drug use: Never Sexual activity: None Other Topics Concern None Social History Narrative None Social Determinants of Health Financial Resource Strain: Not on file Food Insecurity: Not on file Transportation Needs: Not on file Physical Activity: Not on file Stress: Not on file Social Connections: Not on file Intimate Partner Violence: Not on file Housing Stability: Not on file Social History Tobacco Use Smoking Status Former Types: Cigarettes Smokeless Tobacco Never Review of Systems: A total of 12 systems have been reviewed and are negative except for the aforementioned findings described in HPI. Objective Data: Last Recorded Vitals: Vitals: 09/21/23 1333 BP: 124/86 Pulse: 75 SpO2: 95% Weight: 72.6 kg (160 lb) Height: 1.397 m (4' 7) Last Labs: CBC - 08/13/2023: 7:50 AM 5.3 13.9 99 40.6 CMP - 09/01/2023: 7:54 AM 9.3 6.7 15 --- 0.3 3.2 4.4 12 61 PTT - 06/13/2023: 10:20 PM 0.9 10.3 31 TROPHS Date/Time Value Ref Range Status 08/13/2023 08:46 AM 8 0 - 13 ng/L Final 08/13/2023 07:50 AM 8 0 - 13 ng/L Final 06/14/2023 01:31 AM CANCELED Comment: . Less than 99th percentile of normal range cutoff- Female and children under 18 years old <14 ng/L; Male <21 ng/L: Negative Repeat testing should be performed if clinically indicated. . Female and children under 18 years old 14-50 ng/L; Male 21-50 ng/L: Consistent with possible cardiac damage and possible increased clinical risk. Serial measurements may help to assess extent of myocardial damage. . >50 ng/L: Consistent with cardiac damage, increased clinical risk and myocardial infarction. Serial measurements may help assess extent of myocardial damage. . NOTE: Children less than 1 year old may have higher baseline troponin levels and results should be interpreted in conjunction with the overall clinical context. . NOTE: Troponin I testing is performed using a different testing methodology at [facility] than at other [facility]. Direct result comparisons should only be made within the same method. Result canceled by the ancillary. 06/13/2023 11:28 PM 7 0 - 13 ng/L Final Comment: . Less than 99th percentile of normal range cutoff- Female and children under 18 years old <14 ng/L; Male <21 ng/L: Negative Repeat testing should be performed if clinically indicated. . Female and children under 18 years old 14-50 ng/L; Male 21-50 ng/L: Consistent with possible cardiac damage and possible increased clinical risk. Serial measurements may help to assess extent of myocardial damage. . >50 ng/L: Consistent with cardiac damage, increased clinical risk and myocardial infarction. Serial measurements may help assess extent of myocardial damage. . NOTE: Children less than 1 year old may have higher baseline troponin levels and results should be interpreted in conjunction with the overall clinical context. . NOTE: Troponin I testing is performed using a different testing methodology at [facility] than at other [facility]. Direct result comparisons should only be made within the same method. 06/13/2023 10:20 PM 8 0 - 13 ng/L Final Comment: . Less than 99th percentile of normal range cutoff- Female and children under 18 years old <14 ng/L; Male <21 ng/L: Negative Repeat testing should be performed if clinically indicated. . Female and children under 18 years old 14-50 ng/L; Male 21-50 ng/L: Consistent with possible cardiac damage and possible increased clinical risk. Serial measurements may help to assess extent of myocardial damage. . >50 ng/L: Consistent with cardiac damage, increased clinical risk and myocardial infarction. Serial measurements may help assess extent of myocardial damage. . NOTE: Children less than 1 year old may have higher baseline troponin levels and results should be interpreted in conjunction with the overall clinical context. . NOTE: Troponin I testing is performed using a different testing methodology at [facility] than at other [facility]. Direct result comparisons should only be made within the same method. BNP Date/Time Value Ref Range Status 06/13/2023 10:20 PM 75 0 - 99 pg/mL Final Comment: . <100 pg/mL - Heart failure unlikely 100-299 pg/mL - Intermediate probability of acute heart . failure exacerbation. Correlate with clinical . context and patient history. >=300 pg/mL - Heart Failure likely. Correlate with clinical . context and patient history. BNP testing is performed using different testing methodology at [facility] than at other system hospitals. Direct result comparisons should only be made within the same method. 02/20/2023 12:15 PM 27 0 - 99 pg/mL Final Comment: . <100 pg/mL - Heart failure unlikely 100-299 pg/mL - Intermediate probability of acute heart . failure exacerbation. Correlate with clinical . context and patient history. >=300 pg/mL - Heart Failure likely. Correlate with clinical . context and patient history. BNP testing is performed using different testing methodology at [facility] than at other system hospitals. Direct result comparisons should only be made within the same method. HGBA1C Date/Time Value Ref Range Status 09/01/2023 07:54 AM 4.8 see below % Final 06/02/2023 07:24 AM 5.1 % Final Comment: Diagnosis of Diabetes-Adults Non-Diabetic: < or = 5.6% Increased risk for developing diabetes: 5.7-6.4% Diagnostic of diabetes: > or = 6.5% . Monitoring of Diabetes Age (y) Therapeutic Goal (%) Adults: >18 <7.0 Pediatrics: 13-18 <7.5 7-12 <8.0 0- 6 7.5-8.5 [employer]. Diabetes Care 33(S1), Oct 2009. 08/05/2021 08:50 AM 5.2 % Final Comment: Diagnosis of Diabetes-Adults Non-Diabetic: < or = 5.6% Increased risk for developing diabetes: 5.7-6.4% Diagnostic of diabetes: > or = 6.5% . Monitoring of Diabetes Age (y) Therapeutic Goal (%) Adults: >18 <7.0 Pediatrics: 13-18 <7.5 7-12 <8.0 0- 6 7.5-8.5 [employer]. Diabetes Care 33(S1), Oct 2009. VLDL Date/Time Value Ref Range Status 06/02/2023 07:24 AM 74 0 - 40 mg/dL Final 08/05/2021 08:50 AM 37 0 - 40 mg/dL Final Patient Medications: Outpatient Encounter Medications as of 09/21/2023 Medication Sig Dispense Refill acetaminophen 500 mg capsule Take 1 capsule (500 mg) by mouth every 6 hours if needed. albuterol 90 mcg/actuation inhaler Inhale 2 puffs every 6 hours if needed. allopurinol (Zyloprim) 300 mg tablet Take 1 tablet (300 mg) by mouth once daily. amLODIPine (Norvasc) 10 mg tablet Take 1 tablet (10 mg) by mouth once daily. atorvastatin (Lipitor) 20 mg tablet Take 1 tablet (20 mg) by mouth once daily at bedtime. benzonatate (Tessalon) 200 mg capsule Take 1 capsule (200 mg) by mouth if needed for cough. Do not crush or chew. busPIRone (Buspar) 10 mg tablet Take 1 tablet (10 mg) by mouth 3 times a day as needed. calcium carbonate (Tums) 200 mg calcium chewable tablet Chew 1 tablet (500 mg) once daily. calcium carbonate-vitamin D3 600 mg-10 mcg (400 unit) tablet Take 1 tablet by mouth 2 times a day. carboxymethylcellulose PF 1 % ophthalmic solution Administer 2 drops into both eyes if needed. Q1HR clotrimazole-betamethasone (Lotrisone) cream Apply 1 Application topically twice a day. cyanocobalamin, vitamin B-12, (Vitamin B-12) 1,000 mcg tablet extended release Take 1 tablet (1,000mcg) by mouth once daily. diclofenac sodium 1 % kit Apply 1 Application topically in the morning and 1 Application before bedtime. famotidine (Pepcid) 20 mg tablet Take 1 tablet (20 mg) by mouth once daily. flurbiprofen (Ansaid) 100 mg tablet Take 1 tablet (100 mg) by mouth every 8 hours if needed (pain). guaiFENesin (Humibid 3) 400 mg tablet Take 1 tablet (400 mg) by mouth every 6 hours if needed. levETIRAcetam (Keppra) 500 mg tablet Take 1 tablet (500 mg) by mouth 2 times a day. levothyroxine (Synthroid, Levoxyl) 25 mcg tablet Take 1 tablet (25 mcg) by mouth once daily. lisinopril 20 mg tablet Take 1 tablet (20 mg) by mouth 2 times a day. loratadine (Claritin) 10 mg tablet Take 1 tablet (10 mg) by mouth. Before meals LORazepam (Ativan) 1 mg tablet Take 2 tablet twice daily and 1 tab daily PRN 200 tablet 0 magnesium oxide (Mag-Ox) 400 mg tablet Take 1 tablet (400 mg) by mouth once daily. meclizine (Antivert) 25 mg tablet Take 1-2 tablets (25-50 mg) by mouth 3 times a day as needed (otitis media). methyl salicylate-menthol (Icy Hot) 29-7.6 % ointment ointment Apply 1 Application topically every 12 hours if needed. metoprolol tartrate (Lopressor) 25 mg tablet Take 1 tablet (25 mg) by mouth 2 times a day. 60 tablet 11 potassium chloride ER (Micro-K) 10 mEq ER capsule Take 2 capsules (20 mEq) by mouth twice a day. primidone (Mysoline) 50 mg tablet Take 2 tablets (100 mg) by mouth 2 times a day. sennosides-docusate sodium (Lani-Colace) 8.6-50 mg tablet Take 2 tablets by mouth once daily as needed for constipation. sertraline (Zoloft) 100 mg tablet Take 1 tablet (100 mg) by mouth 2 times a day. 60 tablet 11 carbamide peroxide (Debrox) 6.5 % otic solution Administer into affected ear(s). USE DIRECTED cholecalciferol (Vitamin D-3) 1,250 mcg (50,000 unit) capsule Take 1 capsule (50,000 Units) by mouth once a week. divalproex (Depakote ER) 500 mg 24 hr tablet Take 1 tablet (500 mg) by mouth once daily at bedtime. divalproex (Depakote) 250 mg EC tablet Take 1 tablet (250 mg) by mouth once daily in the morning. doxazosin (Cardura) 4 mg tablet Take 1 tablet (4 mg) by mouth once daily at bedtime. lisinopril 10 mg tablet Take 1 tablet (10 mg) by mouth 2 times a day. For blood pressure (Patient not taking: Reported on 09/21/2023) 180 tablet 3 melatonin 5 mg tablet Take 1 tablet (5 mg) by mouth once daily at bedtime. omeprazole (PriLOSEC) [address] capsule Take 1 capsule (20 mg) by mouth once daily. Facility-Administered Encounter Medications as of 09/21/2023 Medication Dose Route Frequency Provider Last Rate Last Admin levonorgestrel (Mirena) 21 mcg/24 hours (8 yrs) 52 mg IUD intrauterine Once Matthew Pérez MD Physical Exam: General: alert, oriented and in no acute distress HEENT: NC/AT; EOMI; PERRLA, external ear is normal Neck: supple; trachea midline; no masses; no JVD Chest: lungs clear to auscultation bilaterally; no wheezing CVS: regular rhythm, S1S2 normal, no murmurs Abdomen: Soft, non-tender, non-distension, no organomegaly Extremities: no clubbing/cyanosis/edema Neuro: Grossly intact Psychiatric: Normal mood and affect Past Cardiology Results (Last 3 Years): EKG: ECG 12 Lead 09/01/2023 Echo: 10/2022: 1. Left ventricular systolic function is normal with a 60% estimated ejection fraction. 2. Poorly visualized anatomical structures due to suboptimal image quality. 3. Spectral Doppler shows a pseudonormal pattern of left ventricular diastolic filling. Assessment/Plan Mrs. Reema Shah is a 48 y.o. year old former smoker female patient with extensive prior medical history significant for hypertension, hyperlipidemia, heart failure, thrombocytopenia, CKD stage III, GERD, morbid obesity, anxiety, depression, hirsutism, former medication addiction, coming forpreoperative assessment of gynecological procedure for endometriosis. She is currently asymptomaticfrom the cardiac standpoint, but she is physically limited due to wheel chair. She denies chest pain, shortness of breath, palpitations, leg edema, lightheadedness, headaches, fever, chills, orthopnea, paroxysmal nocturnal dyspnea or syncope. Notably, she endorses periods of very elevated BP (230mmHg) that improves upon getting medication at the ED. # Cardiology consulted to determine pre-operative risk for gynecological procedure - endometriosis. EKG shows normal sinus rhythm with no signs of ACS. 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 The echocardiogram showed normal LVEF with no wall motion abnormalities. Pseudonormal relaxation pattern of left ventricle diastolic filling. We are requesting nuclear stress test and ekg monitor tech. If nuclear stress test is negative for ischemia, then the patient can undergo the procedure with low risk of cardiovascular complications. Ideally patient should remain on anti-hypertensive medication up to the day of the procedure. This note was transcribed using the [employer] Dictation system. There may be grammatical, punctuation,or verbiage errors that occur with voice recognition programs. Counseling greater than 50% of visit regarding all cardiac issues. Thank you, Dr. Ayala and Dr. Pérez, for allowing me to participate in the care of this patient. Please do not hesitate to contact me with any further questions or concerns. 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 Apparently she was getting out of her chair into her wheelchair and fell backwards hitting her head on the edge of some furniture. She suffered no loss of consciousness or posttraumatic amnesia she also bumped her elbow and scraped her elbow. She denies any neck pains no loss of consciousness no posttraumatic amnesia she denies any palpitations or chest pains or shortness of breath either she has had no nausea or vomiting. Review of Systems Constitutional: Negative for chills, fatigue and fever. HENT: Negative for dental problem and nosebleeds. Eyes: Negative. Respiratory: Negative for cough and chest tightness. Cardiovascular: Negative for chest pain and leg swelling. Gastrointestinal: Negative for abdominal pain, nausea and vomiting. Genitourinary: Negative for dysuria and flank pain. Musculoskeletal: Negative for arthralgias, back pain, myalgias, neck pain and neck stiffness. Skin: Positive for wound. Neurological: Negative for dizziness and headaches. Hematological: Negative for adenopathy. Psychiatric/Behavioral: Negative for agitation. Physical Exam Constitutional: Appearance: She is obese. Comments: Patient is awake and cooperative seems somewhat developmentally delayed but is able to answer questions appropriately is nontoxic in appearance she is awake and coherent she has a [place] Coma Scale 15 HENT: Head: Normocephalic. Comments: Head shows some minimal tenderness in the right parietal occipital area but there is no hematoma no step-off no laceration no abrasion at this time Right Ear: Tympanic membrane normal. Left Ear: Tympanic membrane normal. Nose: Nose normal. Mouth/Throat: Mouth: Mucous membranes are dry. Pharynx: Oropharynx is clear. Eyes: Extraocular Movements: Extraocular movements intact. Conjunctiva/sclera: Conjunctivae normal. Pupils: Pupils are equal, round, and reactive to light. Cardiovascular: Rate and Rhythm: Normal rate and regular rhythm. Pulses: Normal pulses. Heart sounds: Normal heart sounds. No murmur heard. Pulmonary: Effort: Pulmonary effort is normal. No respiratory distress. Breath sounds: Normal breath sounds. Abdominal: General: Bowel sounds are normal. There is no distension. Palpations: Abdomen is soft. Tenderness: There is no abdominal tenderness. Musculoskeletal: General: Tenderness present. No swelling. Cervical back: Normal range of motion and neck supple. No rigidity or tenderness. Comments: Mild tenderness over the right elbow but full range of motion without any obvious fracture or instability at this time Skin: General: Skin is warm and dry. Capillary Refill: Capillary refill takes less than 2 seconds. Comments: Facial abrasion over the right elbow but no ecchymosis or bruising or hematoma Neurological: General: No focal deficit present. Mental Status: She is alert and oriented to person, place, and time. Mental status is at baseline. Sensory: No sensory deficit. Comments: Radial ulnar median nerve motor and sensory function are all intact Psychiatric: Mood and Affect: Mood normal. Behavior: Behavior normal. Labs Reviewed - No data to display XR elbow right T 3+ views Final Result No acute osseous findings of the right elbow. Signed by: Ky Ackerman 09/16/2023 10:19 AM Dictation workstation: [id number] CT head wo IV contrast Final Result No acute intracranial pathology. Signed by: Ky Ackerman 09/16/2023 10:18 AM Dictation workstation: [id number] Procedures Medical Decision Making [place] diagnoses head contusion skull fracture intracerebral hemorrhage right elbow contusion rightelbow fracture right elbow dislocation. Patient was given Tylenol p.o. x-rays of the right elbow were ordered as well as CT scan of the head and she also received prophylaxis of tetanus with BoostrixIM. X-rays of the elbow were negative CT scan of the brain was normal. Patient written received Tylenol bacitracin ointment and a dressing to the elbow and an Francisco wrap and will be discharged to follow-up with her primary care physician Diagnoses as of 09/16/23 1026 Contusion of head, unspecified part of head, initial encounter Fall, initial encounter Contusion of right elbow, initial encounter Abrasion of right elbow, initial encounter Dimas Lin MD 09/16/23 1028 [facility] [place] Work Phone: [phone] Physician Emergency department Note* Dimas Lin MD - 09/16/2023 9:09 AM EST Chief Complaint: FALL This is a 48-year-old female who 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 Apparently she was getting out of her chair into her wheelchair and fell backwards hitting her head on the edge of some furniture. She suffered no loss of consciousness or posttraumatic amnesia she also bumped her elbow and scraped her elbow. She denies any neck pains no loss of consciousness no posttraumatic amnesia she denies any palpitations or chest pains or shortness of breath either she has had no nausea or vomiting. Review of Systems Constitutional: Negative for chills, fatigue and fever. HENT: Negative for dental problem and nosebleeds. Eyes: Negative. Respiratory: Negative for cough and chest tightness. Cardiovascular: Negative for chest pain and leg swelling. Gastrointestinal: Negative for abdominal pain, nausea and vomiting. Genitourinary: Negative for dysuria and flank pain. Musculoskeletal: Negative for arthralgias, back pain, myalgias, neck pain and neck stiffness. Skin: Positive for wound. Neurological: Negative for dizziness and headaches. Hematological: Negative for adenopathy. Psychiatric/Behavioral: Negative for agitation. Physical Exam Constitutional: Appearance: She is obese. Comments: Patient is awake and cooperative seems somewhat developmentally delayed but is able to answer questions appropriately is nontoxic in appearance she is awake and coherent she has a [place] Coma Scale 15 HENT: Head: Normocephalic. Comments: Head shows some minimal tenderness in the right parietal occipital area but there is no hematoma no step-off no laceration no abrasion at this time Right Ear: Tympanic membrane normal. Left Ear: Tympanic membrane normal. Nose: Nose normal. Mouth/Throat: Mouth: Mucous membranes are dry. Pharynx: Oropharynx is clear. Eyes: Extraocular Movements: Extraocular movements intact. Conjunctiva/sclera: Conjunctivae normal. Pupils: Pupils are equal, round, and reactive to light. Cardiovascular: Rate and Rhythm: Normal rate and regular rhythm. Pulses: Normal pulses. Heart sounds: Normal heart sounds. No murmur heard. Pulmonary: Effort: Pulmonary effort is normal. No respiratory distress. Breath sounds: Normal breath sounds. Abdominal: General: Bowel sounds are normal. There is no distension. Palpations: Abdomen is soft. Tenderness: There is no abdominal tenderness. Musculoskeletal: General: Tenderness present. No swelling. Cervical back: Normal range of motion and neck supple. No rigidity or tenderness. Comments: Mild tenderness over the right elbow but full range of motion without any obvious fracture or instability at this time Skin: General: Skin is warm and dry. Capillary Refill: Capillary refill takes less than 2 seconds. Comments: Facial abrasion over the right elbow but no ecchymosis or bruising or hematoma Neurological: General: No focal deficit present. Mental Status: She is alert and oriented to person, place, and time. Mental status is at baseline. Sensory: No sensory deficit. Comments: Radial ulnar median nerve motor and sensory function are all intact Psychiatric: Mood and Affect: Mood normal. Behavior: Behavior normal. Labs Reviewed - No data to display XR elbow right T 3+ views Final Result No acute osseous findings of the right elbow. Signed by: Ky Ackerman 09/16/2023 10:19 AM Dictation workstation: [id number] CT head wo IV contrast Final Result No acute intracranial pathology. Signed by: Ky Ackerman 09/16/2023 10:18 AM Dictation workstation: [id number] Procedures Medical Decision Making [place] diagnoses head contusion skull fracture intracerebral hemorrhage right elbow contusion rightelbow fracture right elbow dislocation. Patient was given Tylenol p.o. x-rays of the right elbow were ordered as well as CT scan of the head and she also received prophylaxis of tetanus with BoostrixIM. X-rays of the elbow were negative CT scan of the brain was normal. Patient written received Tylenol bacitracin ointment and a dressing to the elbow and an Francisco wrap and will be discharged to follow-up with her primary care physician Diagnoses as of 09/16/23 1026 Contusion of head, unspecified part of head, initial encounter Fall, initial encounter Contusion of right elbow, initial encounter Abrasion of right elbow, initial encounter Dimas Lin MD 09/16/23 1028 [facility] [place] Work Phone: [phone]) 541-831611-22-2023 History of Present illness Narrative* Jeanie Ayala MD - 09/08/2023 11:15 AM EST Subjective Patient ID: Reema Shah is a 47 y.o. female who presents for Follow-up (6 MONTH F/U - ONLY LABS DONE WERE ORDERED BY [employer] DEVELOPER DR. PÉREZ - PENDING LAPAROSCOPY AND IUD PLACEMENT. MED REFILL LORAZEPAM. ). HERE FOR MED REFILL Had an abnormal EKG for preop needs work up Reports episodes of cp Review of Systems Constitutional: Negative. Negative for chills and fever. HENT: Negative. Negative for congestion. Eyes: Negative. Negative for discharge. Respiratory: Negative. Negative for cough, shortness of breath and wheezing. Cardiovascular: Positive for chest pain. Negative for palpitations and leg swelling. Gastrointestinal: Negative. Negative for abdominal distention, abdominal pain, constipation, diarrhea, nausea and vomiting. Endocrine: Negative. Genitourinary: Negative. Negative for dysuria and urgency. Musculoskeletal: Negative. Negative for back pain, joint swelling and neck stiffness. Skin: Negative. Negative for rash. Allergic/Immunologic: Negative. Negative for immunocompromised state. Neurological: Negative. Negative for light-headedness, numbness and headaches. Hematological: Negative. Negative for adenopathy. Psychiatric/Behavioral: Negative. Negative for agitation, behavioral problems and confusion. All other systems reviewed and are negative. Objective Physical Exam Vitals reviewed. Constitutional: General: She is not in acute distress. Appearance: Normal appearance. HENT: Head: Normocephalic and atraumatic. Nose: Nose normal. Eyes: Conjunctiva/sclera: Conjunctivae normal. Pupils: Pupils are equal, round, and reactive to light. Neck: Vascular: No carotid bruit. Cardiovascular: Rate and Rhythm: Normal rate and regular rhythm. Pulses: Normal pulses. Heart sounds: No gallop. Pulmonary: Effort: Pulmonary effort is normal. No respiratory distress. Breath sounds: Normal breath sounds. No wheezing. Abdominal: General: Bowel sounds are normal. Palpations: Abdomen is soft. Tenderness: There is no abdominal tenderness. Musculoskeletal: General: Normal range of motion. Cervical back: Normal range of motion. No rigidity. Lymphadenopathy: Cervical: No cervical adenopathy. Skin: General: Skin is warm. Findings: No rash. Neurological: General: No focal deficit present. Mental Status: She is alert and oriented to person, place, and time. Psychiatric: Mood and Affect: Mood normal. Behavior: Behavior normal. BP 132/80 Pulse 69 Ht 1.372 m (4' 6) Wt 72.6 kg (160 lb) BMI 38.58 kg/m Hemoglobin A1C Date/Time Value Ref Range Status 09/01/2023 07:54 AM 4.8 see below % Final Assessment/Plan Problem List Items Addressed This Visit Anxiety Relevant Medications LORazepam (Ativan) 1 mg tablet Fatty liver - Primary Hyperglycemia Stage 3a chronic kidney disease (CMS/HCC) Chest pain Other Visit Diagnoses Abnormal EKG Relevant Orders Nuclear Stress Test Labs reviewed with pt MONITOR BP GOAL BP LOWER THAN 130/80 LOW SALT EXERCISE DAILY AVOID NSAIDS INCREASE FLUID INTAKE EKG noted, abnormal MDM 1) COMPLEXITY: 1 UNDIAGNOSED NEW PROBLEM WITH UNCERTAIN PROGNOSIS 2)DATA: TESTS INTERPRETED AND OR ORDERED, TOOK INDEPENDENT HISTORY OR RECORDS REVIEWED 3)RISK: MODERATE RISK DUE TO NATURE OF MEDICAL CONDITIONS/COMORBIDITY OR MEDICATIONS ORDERED OR SURGICAL OR PROCEDURE REFERRAL, . Fu in oct Fu in oct [facility] Work Phone: [phone]) 107-922211-15-2023 Miscellaneous Notes* Result Encounter Note - Matthew Pérez MD - 09/01/2023 8:15 AM EST Reema's EKG came back abnormal so she is going to need to get cardiac clearance as well but in the order [facility] [place] Work Phone: [phone] 181-668511-15-2023 Progress note* Result Encounter Note - Matthew Pérez MD - 09/01/2023 8:15 AM EST Reema's EKG came back abnormal so she is going to need to get cardiac clearance as well but in the order [facility] [place] Work Phone: [phone] Emergency department Note* Abhi Teran DO Maurice - 08/25/2023 9:16 AM EST HPI Chief Complaint Patient presents with Fall Brought to ED by [facility] squad from home after fall. She reports that she has head, neck, back, and L hand pain. Denies any LOC, but reports frequent falls d/t underlying medical problems. Denies taking any blood thinners. Refuses C-collar Patient presents to the emergency department by squad from [facility] secondary to a mechanical fall. The patient does have a gait disturbance and states she falls occasionally. She states that shewas reaching for a chair and lost her footing/balance, and fell to the ground. She states that she struck her head but did not lose consciousness and she recalls the entire event. She presents complaining of head pain, neck pain, right shoulder pain, right rib pain, and sacrum pain. History provided by: EMS personnel and patient federal court of appeals law clerk used: No No data recorded Patient History Past Medical History: Diagnosis Date Encounter for gynecological examination (general) (routine) without abnormal findings 01/29/2021 Pap test, as part of routine gynecological examination Immunization not carried out because of patient refusal Influenza vaccination declined Leg swelling 02/25/2023 Lumbar contusion 02/25/2023 Other conditions influencing health status Hepatic Failure Other conditions influencing health status Menarche Other conditions influencing health status History of vaginal delivery Pain of left lower extremity 02/25/2023 Pelvic and perineal pain 01/29/2021 Pelvic pain in female Pelvic and perineal pain 07/01/2021 Pelvic pain in female Pelvic and perineal pain 07/01/2021 Pelvic pain in female Personal history of diseases of the blood and blood-forming organs and certain disorders involving the immune mechanism History of anemia Personal history of other diseases of the circulatory system History of hypertension Personal history of other diseases of the circulatory system History of congestive heart failure Personal history of other diseases of urinary system History of chronic kidney disease Personal history of other medical treatment H/O mammogram Personal history of other medical treatment History of blood transfusion Personal history of other specified conditions History of seizure Unspecified kidney failure 04/08/2021 Renal failure 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 Very important you follow up with Dr. Chopra the neurologist on 03/16/2019. Weakness 12/01/2020 Past Surgical History: Procedure Laterality Date BREAST SURGERY 05/31/2013 Breast Surgery Reduction Procedure CT HEAD ANGIO W AND WO IV CONTRAST 05/09/2022 CT HEAD ANGIO W AND WO IV CONTRAST 05/09/2022 [facility] CT NECK ANGIO W AND WO IV CONTRAST 05/09/2022 CT NECK ANGIO W AND WO IV CONTRAST 05/09/2022 [facility] OTHER SURGICAL HISTORY 01/30/2022 Intrauterine device placement OTHER SURGICAL HISTORY 08/04/2019 Breast reduction Family History Problem Relation Name Age of Onset Hypertension Mother Diabetes Mother Other (cardiac disorder) Mother Hypothyroidism Father Seizures Sister absence and GTC seizures Heart disease Other Hypothyroidism Other COPD Other Lupus Other systemic lupus erythematosus Social History Tobacco Use Smoking status: Never Smokeless tobacco: Never Vaping Use Vaping Use: Never used Substance Use Topics Alcohol use: Never Drug use: Never Physical Exam ED Triage Vitals [08/25/23 0924] Temp Heart Rate Resp BP 36.4 C (97.6 F) 76 16 161/83 SpO2 Temp src Heart Rate Source Patient Position 96 % -- -- -- BP Location FiO2 (%) -- -- Physical Exam Vitals and nursing note reviewed. Constitutional: General: She is not in acute distress. Appearance: Normal appearance. She is obese. She is not ill-appearing, toxic- appearing or diaphoretic. Comments: Appears chronically debilitated but not toxic anyway. Answers questions appropriately. HENT: Head: Normocephalic and atraumatic. Comments: No cephalohematoma. Negative ray sign. Right Ear: Tympanic membrane, ear canal and external ear normal. There is no impacted cerumen. Left Ear: Tympanic membrane, ear canal and external ear normal. There is no impacted cerumen. Ears: Comments: No hemotympanum Nose: Nose normal. No rhinorrhea. Comments: No evidence of epistaxis Eyes: Extraocular Movements: Extraocular movements intact. Pupils: Pupils are equal, round, and reactive to light. Neck: Comments: Trachea is midline Cardiovascular: Rate and Rhythm: Normal rate and regular rhythm. Heart sounds: No murmur heard. Pulmonary: Effort: Pulmonary effort is normal. Breath sounds: Normal breath sounds. No wheezing. Abdominal: General: Abdomen is flat. Bowel sounds are normal. There is no distension. Palpations: Abdomen is soft. Tenderness: There is no abdominal tenderness. Musculoskeletal: General: No deformity or signs of injury. Normal range of motion. Cervical back: Normal range of motion. Comments: Patient can raise both arms up over her head. Siebel Developer strengths are equal. She can flex and extend at the knee and hip without deficit. Skin: General: Skin is warm and dry. Findings: No rash. Neurological: General: No focal deficit present. Mental Status: She is alert and oriented to person, place, and time. Mental status is at baseline. Psychiatric: Behavior: Behavior normal. Thought Content: Thought content normal. Judgment: Judgment normal. Comments: Flat affect ED Course & MDM Diagnoses as of 08/25/231333 Fall, initial encounter Medical Decision Making Given that the patient's radiographs are negative, and she has a history of falls, I feel she is appropriate to be discharged home. Reassurance was given. Recommended Tylenol for pain. Follow-up withher private physician and return if worse Procedure Procedures Abhi Richards DO 08/25/231334 [facility] [place] [facility] Phone: [phone]) 203-603111-08-2023 Physician Emergency department Note* Abhi Richards DO - 08/25/2023 9:16 AM EST HPI Chief Complaint Patient presents with Fall Brought to ED by MANOLO torre from home after fall. She reports that she has head, neck, back, and L hand pain. Denies any LOC, but reports frequent falls d/t underlying medical problems. Denies taking any blood thinners. Refuses C-collar Patient presents to the emergency department by squad from [facility] secondary to a mechanical fall. The patient does have a gait disturbance and states she falls occasionally. She states that shewas reaching for a chair and lost her footing/balance, and fell to the ground. She states that she struck her head but did not lose consciousness and she recalls the entire event. She presents complaining of head pain, neck pain, right shoulder pain, right rib pain, and sacrum pain. History provided by: EMS personnel and patient federal court of appeals law clerk used: No No data recorded Patient History Past Medical History: Diagnosis Date Encounter for gynecological examination (general) (routine) without abnormal findings 01/29/2021 Pap test, as part of routine gynecological examination Immunization not carried out because of patient refusal Influenza vaccination declined Leg swelling 02/25/2023 Lumbar contusion 02/25/2023 Other conditions influencing health status Hepatic Failure Other conditions influencing health status Menarche Other conditions influencing health status History of vaginal delivery Pain of left lower extremity 02/25/2023 Pelvic and perineal pain 01/29/2021 Pelvic pain in female Pelvic and perineal pain 07/01/2021 Pelvic pain in female Pelvic and perineal pain 07/01/2021 Pelvic pain in female Personal history of diseases of the blood and blood-forming organs and certain disorders involving the immune mechanism History of anemia Personal history of other diseases of the circulatory system History of hypertension Personal history of other diseases of the circulatory system History of congestive heart failure Personal history of other diseases of urinary system History of chronic kidney disease Personal history of other medical treatment H/O mammogram Personal history of other medical treatment History of blood transfusion Personal history of other specified conditions History of seizure Unspecified kidney failure 04/08/2021 Renal failure 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 Very important you follow up with Dr. Chopra the neurologist on 03/16/2019. Weakness 12/01/2020 Past Surgical History: Procedure Laterality Date BREAST SURGERY 05/31/2013 Breast Surgery Reduction Procedure CT HEAD ANGIO W AND WO IV CONTRAST 05/09/2022 CT HEAD ANGIO W AND WO IV CONTRAST 05/09/2022 [facility] CT NECK ANGIO W AND WO IV CONTRAST 05/09/2022 CT NECK ANGIO W AND WO IV CONTRAST 05/09/2022 [facility] OTHER SURGICAL HISTORY 01/30/2022 Intrauterine device placement OTHER SURGICAL HISTORY 08/04/2019 Breast reduction Family History Problem Relation Name Age of Onset Hypertension Mother Diabetes Mother Other (cardiac disorder) Mother Hypothyroidism Father Seizures Sister absence and GTC seizures Heart disease Other Hypothyroidism Other COPD Other Lupus Other systemic lupus erythematosus Social History Tobacco Use Smoking status: Never Smokeless tobacco: Never Vaping Use Vaping Use: Never used Substance Use Topics Alcohol use: Never Drug use: Never Physical Exam ED Triage Vitals [08/25/23 0924] Temp Heart Rate Resp BP 36.4 C (97.6 F) 76 16 161/83 SpO2 Temp src Heart Rate Source Patient Position 96 % -- -- -- BP Location FiO2 (%) -- -- Physical Exam Vitals and nursing note reviewed. Constitutional: General: She is not in acute distress. Appearance: Normal appearance. She is obese. She is not ill-appearing, toxic- appearing or diaphoretic. Comments: Appears chronically debilitated but not toxic anyway. Answers questions appropriately. HENT: Head: Normocephalic and atraumatic. Comments: No cephalohematoma. Negative ray sign. Right Ear: Tympanic membrane, ear canal and external ear normal. There is no impacted cerumen. Left Ear: Tympanic membrane, ear canal and external ear normal. There is no impacted cerumen. Ears: Comments: No hemotympanum Nose: Nose normal. No rhinorrhea. Comments: No evidence of epistaxis Eyes: Extraocular Movements: Extraocular movements intact. Pupils: Pupils are equal, round, and reactive to light. Neck: Comments: Trachea is midline Cardiovascular: Rate and Rhythm: Normal rate and regular rhythm. Heart sounds: No murmur heard. Pulmonary: Effort: Pulmonary effort is normal. Breath sounds: Normal breath sounds. No wheezing. Abdominal: General: Abdomen is flat. Bowel sounds are normal. There is no distension. Palpations: Abdomen is soft. Tenderness: There is no abdominal tenderness. Musculoskeletal: General: No deformity or signs of injury. Normal range of motion. Cervical back: Normal range of motion. Comments: Patient can raise both arms up over her head. Siebel Developer strengths are equal. She can flex and extend at the knee and hip without deficit. Skin: General: Skin is warm and dry. Findings: No rash. Neurological: General: No focal deficit present. Mental Status: She is alert and oriented to person, place, and time. Mental status is at baseline. Psychiatric: Behavior: Behavior normal. Thought Content: Thought content normal. Judgment: Judgment normal. Comments: Flat affect ED Course & MDM Diagnoses as of 08/25/23 1334 Fall, initial encounter Medical Decision Making Given that the patient's radiographs are negative, and she has a history of falls, I feel she is appropriate to be discharged home. Reassurance was given. Recommended Tylenol for pain. 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 Also when does Dr Chopra want to see her? 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 Also when does Dr Chopra want to see her? Best time of day caller can be reached: AM Patient advised that office/PCP has 24-48 business hours to return their call: Yes documented in this [facility]11-06-2023 Telephone encounter Note* Telephone Encounter - Laron Curiel LPN - 08/23/2023 9:30 AM EST Call to [facility]. Perez notified of medication change on patient's Depakote. Ana informed to Discontinue Depakote ER 250 mg po once order #5 starts. Order #5 reads Depakote ER 500 mg po bid. Ana repeated back correct order. Ana also informed to please set up appointments for patient tosee Dr. Kumar or Dr. Hernandez with the epilepsy team and Dr. Faith in the falls clinic. Please get those appointments scheduled. Ana verbalized understanding. Ana stated is in the process of scheduling appointments. Ana also stated will have patient's blood drawn in two weeks prior to amdose of Depakote. FYI to provider. [facility] [id number] Miscellaneous Notes* Telephone Encounter - Laron Curiel LPN - 08/23/2023 9:30 AM EST Call to [facility]. Perez notified of medication change on patient's Depakote. Ana informed to Discontinue Depakote ER 250 mg po once order #5 starts. Order #5 reads Depakote ER 500 mg po bid. Ana repeated back correct order. Ana also informed to please set up appointments for patient tosee Dr. Kumar or Dr. Hernandez with the epilepsy team and Dr. Faith in the falls clinic. Please get those appointments scheduled. Ana verbalized understanding. Ana stated is in the process of scheduling appointments. Ana also stated will have patient's blood drawn in two weeks prior to amdose of Depakote. FYI to provider. * Telephone Encounter - Mathew Pearson - 08/23/2023 9:21 AM EST Name of caller: Ana Contact phone number: [phone] Relationship to Patient: [facility] Provider: Dr Chopra Practice: [facility] [place] Chief Complaint/Reason for Call: Ana states she would like to speak to the office directly regarding pt's medication. Please advise. Best time of day caller can be reached: any Patient advised that office/PCP has 24-48 business hours to return their call: N/A * Telephone Encounter - Latesha Krause MA - 08/23/2023 8:49 AM EST Lm for Ana to call the office back, please relay providers message. * Telephone Encounter - Valentina Chopra MD - 08/23/2023 7:51 AM EST Clarification of the order: oRDER #6: Discontinue Depakote ER 250 mg po once order #5 starts. Order#5 reads Depakote ER 500 mg po bid. Also, make sure she is set up to see Dr. Kumar or Dr. Hernandez with the epilepsy team. Additionally, I want her to see Dr. Faith in the falls clinic. Please get those appointments scheduled * Telephone Encounter - Laron Curiel LPN - 08/20/2023 2:26 PM EDT Call to [facility]. Spoke with Ana. Ana faxed form to office. Form is in providers basket. * Telephone Encounter - Latesha Krause MA - 08/20/2023 1:36 PM EDT Form is being faxed * Telephone Encounter - Valentina Chopra MD - 08/20/2023 1:27 PM EDT That form is lost. Can they re-fax it * Telephone Encounter - Haseeb Tom - 08/20/2023 11:36 AM EDT [facility] is calling to check on the status of the request. * Telephone Encounter - Latesha Krause MA - 08/19/2023 2:34 PM EDT Form is on providers desk * Telephone Encounter - Rachel Birmingham - 08/19/2023 2:27 PM EDT Name of caller: Ana Contact phone number: [phone] Relationship to Patient: [place] Provider: Dr. Chopra Practice: Neurology Chief Complaint/Reason for Call: Ana states that she is not abl to read the order sheet that Dr. Chopra sent with Re[facility] sheffield. She is faxing the order over and is asking for clarification on number 6 on the sheet. Please call Ana and advise. Best time of day caller can be reached: Any Patient advised that office/PCP has 24-48 business hours to return their call: No documented in this [facility]11-06-2023 Telephone encounter Note* Telephone Encounter - Mathew Pearson - 08/23/2023 9:21 AM EST Name of caller: Ana Contact phone number: [phone] Relationship to Patient: [facility] Provider: Dr Chopra Practice: [facility] [place] Chief Complaint/Reason for Call: Ana states she would like to speak to the office directly regarding pt's medication. Please advise. Best time of day caller can be reached: any Patient advised that office/PCP has 24-48 business hours to return their call: N/A [place] [id number] Telephone encounter Note* Telephone Encounter - Latesha Krause MA - 08/23/2023 8:49 AM EST Lm for Ana to call the office back, please relay providers message. [place] [id number] Telephone encounter Note* Telephone Encounter - Valentina Chopra MD - 08/23/2023 7:51 AM EST Clarification of the order: oRDER #6: Discontinue Depakote ER 250 mg po once order #5 starts. Order#5 reads Depakote ER 500 mg po bid. Also, make sure she is set up to see Dr. Kumar or Dr. Hernandez with the epilepsy team. Additionally, I want her to see Dr. Faith in the falls clinic. Please get those appointments scheduled [facility] [id number] Telephone encounter Note* Telephone Encounter - Laron Curiel LPN - 08/20/2023 2:26 PM EDT Call to [facility]. Spoke with Ana. Ana faxed form to office. Form is in providers basket. [place] [id number] Telephone encounter Note* Telephone Encounter - Latesha Krause MA - 08/20/2023 1:36 PM EDT Form is being faxed [place] [id number] Telephone encounter Note* Telephone Encounter - Valentina Chopra MD - 08/20/2023 1:27 PM EDT That form is lost. Can they re-fax it [place] [id number] Telephone encounter Note* Telephone Encounter - Haseeb Tom - 08/20/2023 11:[address] [facility] is calling to check on the status of the request. [place] [id number] Telephone encounter Note* Telephone Encounter - Latesha Krause MA - 08/19/2023 2:34 PM EDT Form is on providers desk [place] [id number] Telephone encounter Note* Telephone Encounter - Rachel Birmingham - 08/19/2023 2:27 PM EDT Name of caller: Ana Contact phone number: [phone] Relationship to Patient: [facility] Provider: Dr. Chopra Practice: Neurology Chief Complaint/Reason for Call: Ana states that she is not abl to read the order sheet that Dr. Chopra sent with [facility] sheffield. She is faxing the order over and is asking for clarification on number 6 on the sheet. Please call Ana and advise. Best time of day caller can be reached: Any Patient advised that office/PCP has 24-48 business hours to return their call: No [place] [id number] History of Present illness Narrative* Valentina Chopra MD - 08/19/2023 10:30 AM EDT Images from the original note were not included. [facility] [address] [facility] [address] Dept: [phone] Dept Loc: [phone] Valentina Chopra MD Thank you for your kind request for a neurological consultation on this patient. CHIEF COMPLAINT: Chief Complaint Patient presents with New Patient Seizures HISTORY OF PRESENT ILLNESS: The patient is a 47 y.o. person who presents with long history of seizures and tremors. She was seen by me years ago. She reports that she is still having seizures. Most of them are what she describes as petit mal where she is just dazing off. She reports that she ahs not had a generalized convulsive seizures for a few months. She is not specific about details. She reports that she has frequent falls. She had to be seen in ER in Nov, January, and Jun because of falls. She reports that she has to walk with a walker. She reports that she is have weakness in the left leg and left hand for about a year. She reports that her falling got worse after the left sided weakness. She cannot have an MRI brain because of metal in her belly. She has tremors. It is in the hands and the legs. She has to have a cup with a lid and a straw. Shetruggles to eat with silverware. She reports that she gets tremor in her voice as well. She reviewed with me that she was recently taken off of Depakote due to concerns about Depakote toxicity and that caused her to have a generalized convulsive seizure. Past Medical History: has a past medical history of Anxiety, Chronic kidney disease, Epilepsy (HCC), Essential hypertension, Gastro-esophageal reflux disease without esophagitis, Hypokalemia, Hypothyroidism, Obesity, Personal history of urinary (tract) infections, Psoriasis, Repeated falls, and Thrombocytopenia ([facility]). Past Surgical History: has a past surgical history that includes Breast reduction. Medications: Current Outpatient Medications: albuterol 108 (90 Base) MCG/ACT inhaler, , Disp: , Rfl: allopurinol (Zyloprim) 300 MG tablet, Take 300 mg by mouth in the morning., Disp: , Rfl: amLODIPine (Norvasc) 10 MG tablet, Take 10 mg by mouth in the morning., Disp: , Rfl: atorvastatin (Lipitor) 20 MG tablet, , Disp: , Rfl: benzonatate (Tessalon) 200 MG capsule, Take by mouth., Disp: , Rfl: busPIRone (Buspar) 10 MG tablet, , Disp: , Rfl: Calcium + Vitamin D3 600-10 MG-MCG tablet, , Disp: , Rfl: clotrimazole-betamethasone (Lotrisone) cream, , Disp: , Rfl: Cyanocobalamin ER 1000 MCG tablet controlled-release, Take 1,000 mcg by mouth in the morning., Disp: , Rfl: Diclofenac Sodium (Voltaren) 1 % gel, Apply topically every 12 hours., Disp: , Rfl: divalproex (Depakote ER) 250 MG 24 hr tablet, , Disp: , Rfl: divalproex (Depakote ER) 500 MG 24 hr tablet, Take 500 mg by mouth., Disp: , Rfl: famotidine (Pepcid) 20 MG tablet, , Disp: , Rfl: flurbiprofen (Ansaid) 100 MG tablet, Take by mouth every 8 hours as needed., Disp: , Rfl: guaiFENesin (Humibid 3) 400 MG tablet, Take 400 mg by mouth every 6 hours as needed., Disp: , Rfl: levETIRAcetam (Keppra) 500 MG tablet, , Disp: , Rfl: levothyroxine (Synthroid, Levoxyl) 25 MCG tablet, , Disp: , Rfl: lisinopril 20 MG tablet, , Disp: , Rfl: loperamide (Imodium A-D) 2 MG tablet, Take by mouth as needed for diarrhea., Disp: , Rfl: loratadine (Claritin) 10 MG tablet, Take 10 mg by mouth., Disp: , Rfl: LORazepam (Ativan) 1 MG tablet, , Disp: , Rfl: magnesium oxide (Mag-Ox) 400 MG tablet, Take 400 mg by mouth in the morning., Disp: , Rfl: meclizine (Antivert) 25 MG tablet, Take 25 mg by mouth 3 times daily as needed., Disp: , Rfl: metoprolol tartrate (Lopressor) 25 MG tablet, , Disp: , Rfl: potassium chloride ER (Micro-K) 10 MEQ ER capsule, , Disp: , Rfl: primidone (Mysoline) 50 MG tablet, , Disp: , Rfl: senna-docusate (Lani-Colace) 8.6-50 MG tablet, Take 2 tablets by mouth Nightly as needed., Disp: , Rfl: sertraline (Zoloft) 100 MG tablet, Take 100 mg by mouth in the morning and 100 mg in the evening., Disp: , Rfl: Filled Written Sold ID Drug QTY Days Prescriber RX # Dispenser Refill Daily Dose* Pymt Type [employer] 08/01/2023 07/13/2023 1 Lorazepam 1 Mg Tablet 150.00 30 Me Tav [id number] Par (1165) 0 5.00 LME Medicaid [place] 07/30/2023 07/13/2023 1 Lorazepam 1 Mg Tablet 150.00 30 Me Tav [id number] Par (1165) 0 5.00 LME [place] 07/06/2023 07/06/2023 1 Lorazepam 1 Mg Tablet 120.00 30 Me Tav [id number] Par (1165) 0 4.00 [place]ME [place] 06/15/2023 06/07/2023 1 Lorazepam 1 Mg Tablet 105.00 21 Me Tav [id number] Par (1165) 2 5.00 [place]ME [place] 06/07/2023 06/07/2023 1 Lorazepam 1 Mg Tablet 45.00 7 Me Tav [id number] Par (1165) 0 6.43 LME [place] 05/13/2023 05/04/2023 1 Lorazepam 1 Mg Tablet 120.00 24 Me Tav [id number] Par (1165) 4 5.00 LME [place] 05/07/2023 05/04/2023 1 Lorazepam 1 Mg Tablet 30.00 6 Me Tav [id number] Par (1165) 0 5.00 [place] 05/01/2023 04/14/2023 1 Lorazepam 1 Mg Tablet 28.00 7 Me Tav [id number] Par (1165) 3 4.00 [place]ME [place] 04/24/2023 04/14/2023 1 Lorazepam 1 Mg Tablet 28.00 7 Me Tav [id number] Par (1165) 2 4.00 [place] 04/18/2023 04/14/2023 1 Lorazepam 1 Mg Tablet 28.00 7 Me Tav [id number] Par (1165) 1 4.00 [place] 04/14/2023 04/14/2023 1 Lorazepam 1 Mg Tablet 28.00 7 Me Tav [id number] Par (1165) 0 4.00 [place] 04/05/2023 03/31/2023 1 Lorazepam 1 Mg Tablet 30.00 6 Me Tav [id number] Par (1165) 1 5.00 [place] 03/31/2023 03/31/2023 1 Lorazepam 1 Mg Tablet 30.00 6 Me Tav [id number] Par (1165) 0 5.00 [place]ME [place] 03/22/2023 12/15/2022 1 Lorazepam 1 Mg Tablet 30.00 6 Me Tav [id number] Par (1165) 14 5.00 [place] 03/15/2023 12/15/2022 1 Lorazepam 1 Mg Tablet 30.00 6 Me Tav [id number] Par (1165) 13 5.00 [place] Allergies: Gabapentin, Hydrocodone-acetaminophen, Morphine, Ondansetron, Other, Phenytoin, Promethazine, Acetaminophen, Azithromycin, Codeine, Erythromycin, Erythromycin base, Hydrocodone, Hydromorphone, Penicillins, and Tramadol Social History: Social History Socioeconomic History Marital status: Spouse name: Not on file Number of children: Not on file Years of education: Not on file Highest education level: Not on file Occupational History Not on file Tobacco Use Smoking status: Never Smokeless tobacco: Never Substance and Sexual Activity Alcohol use: Never Drug use: Never Sexual activity: Not on file Other Topics Concern Not on file Social History Narrative Not on file Social Determinants of Health Financial Resource Strain: Not on file Food Insecurity: Not on file Transportation Needs: Not on file Physical Activity: Not on file Stress: Not on file Social Connections: Not on file Intimate Partner Violence: Not on file Housing Stability: Not on file Family History: Family History Problem Relation Name Age of Onset Heart disease Mother Parkinson's Disease Mother Dementia Mother Thyroid disease Father Asthma Sister Seizures Sister Asthma Sister Asthma Brother No Known Problems Maternal Grandmother No Known Problems Maternal Grandfather No Known Problems Paternal Grandmother No Known Problems Paternal Grandfather No Known Problems Daughter REVIEW OF SYSTEMS: Review of Systems Constitutional: Negative for appetite change, chills, diaphoresis, fever and unexpected weight change. HENT: Negative for dental problem and mouth sores. Eyes: Negative for discharge and itching. Respiratory: Negative for chest tightness. Cardiovascular: Negative for chest pain and leg swelling. Gastrointestinal: Negative for rectal pain and vomiting. Endocrine: Negative for polydipsia, polyphagia and polyuria. Genitourinary: Negative for decreased urine volume, flank pain and genital sores. Musculoskeletal: Negative for arthralgias. Skin: Negative for color change. Allergic/Immunologic: Negative for food allergies and immunocompromised state. Neurological: Positive for dizziness, tremors and seizures. Hematological: Negative for adenopathy. Does not bruise/bleed easily. Psychiatric/Behavioral: Negative for agitation, behavioral problems, decreased concentration, sleepdisturbance and suicidal ideas. PHYSICAL EXAM: Vitals: BP (!) 142/90 (BP Location: Left arm, Patient Position: Sitting, BP Cuff Size: Adult) Pulse 75 Ht 4' 7 (1.397 m) Wt 160 lb (72.6 kg) BMI 37.19 kg/m General Appearance: Patient is in no apparent distress. Head is normocephalic, atraumatic Cardiovascular: Regular rate and rhythm. No heart murmurs. No carotid bruit Neurologic: Mentation: Alert and oriented x 3 to person, place and time. Speech and Language: Speech is tremulous and language grossly normal Concentration and Attention: Concentration normal Memory: Memory grossly normal. She is a complex patient and came a little late so we were not able to do a full exam of memory today Fund of Knowledge: Fund of knowledge grossly normal Cranial Nerves: II, III, IV, V, , VII, VIII, IX, X, XI, XII tested and were intact including fundoscopic exam (optic discs) and visual field to confrontation. Motor: Strength:Strength 5 out of 5 with normal tone Alternating Movements: Normal Cogwheel Rigidity: None Tone: Tone is normal Tremor / Involuntary Movements: Bilateral high amp low frequccy tremor. She has primarily intentiontremor. All limbs and the neck spine have this. She has a similar tremor in her voice. No rest tremor Deep Tendon Reflexes: 1 out of 4 symmetrical in all four limbs. Coordination: Normal coordination upper and lower extremities Gait and Station: She did not bring her walker and was too unstable to test this without that today. DATA CT HEAD OR BRAIN W/O CONTRAST CLINICAL STATEMENT: pain/headache COMPARISON: 12/27/2009 FINDINGS: No mass, hemorrhage, or acute infarct is identified. No extra-axial fluid collection or midline shift is seen. The ventricles and sulci are normal in appearance. The hill-white matter differentiation is maintained. A 1.8 cm mucous retention cyst or polyp is again identified with in the LEFT maxillary sinus. The visualized cranium is intact. IMPRESSION: No acute intracranial process. A preliminary report was sent at the time of the exam. Component 5 yr ago Check Processing Clerk EXAMINATION: NM I-123 BRAIN SPECT DOPAMINE TRANSPORTER [...] and caudate nuclei, bilaterally. IMPRESSION: Normal study. Interpreted By: Susan Bhakta MD Preliminary Report By: Susan Bhakta MD Electronically Signed By: Susan Bhakta MD Dictated Date: 04/12/2014 8:46:00 AM Prelim Date: 04/12/2014 8:52:13 AM Sign Date: 04/12/2014 8:52:13 AM Aleksey Bhardwaj MD - 03/16/2019 4:18 PM EDT Aleksey Bhardwaj MD 03/16/2019 4:19 PM [facility] EEG Report Reason for EEG: Seizures. [...] epileptiform discharges or ictal activity was seen. CT MAXILLOFACIAL WITHOUT CONTRAST; CT HEAD OR BRAIN WITHOUT CONTRAST HISTORY: ORDERING SYSTEM PROVIDED HISTORY: nose injury, TECHNOLOGIST PROVIDED HISTORY: Injury/Trauma Reason for exam: pt had a seizure, FELL OFF TOILET.STRUCK TOP OF HEAD, head and neck pain, tremors Encounter Type: Initial Mechanism of injury: fall ORDERING SYSTEM PROVIDED DIAGNOSIS CODES: ; ORDERING SYSTEM PROVIDED HISTORY: head trauma, seizure, TECHNOLOGIST PROVIDED HISTORY: Injury/Trauma Reason for exam: pt had a seizure, FELL OFF TOILET.STRUCK TOP OF HEAD, head and neck pain, tremors Encounter Type: Initial Mechanism of injury: fall ORDERING SYSTEM PROVIDED DIAGNOSIS CODES: COMPARISON: None TECHNIQUE: CT examination of the head without IV contrast. Dose reduction techniques were achieved by using automated exposure control and/or adjustment of mAand/or kV according to patient size and/or use of iterative reconstruction technique. FINDINGS: BRAIN: No edema, hemorrhage, mass, acute infarction, or inappropriate atrophy. CSF SPACES: No hydrocephalus, subarachnoid hemorrhage, or mass. Appropriate for age. SKULL: No fracture, mass, or other significant visible lesion. SINUSES: Mucocele versus retention cyst within the base of the left maxillary sinus suggestive of chronic sinusitis. ORBITS: No appreciable abnormality on the limited views. Facial bones:: Nondisplaced fractures of the right and left nasal bones. IMPRESSION: 1. Normal CT appearance of the brain. 2. Nondisplaced fractures of the right and left nasal bones. 3. Left maxillary chronic sinusitis. Workstation ID: [id number] Exam End: 12/01/20 12:39 Specimen Collected: 12/01/20 13:00 CT CERVICAL SPINE WITHOUT CONTRAST HISTORY: ORDERING SYSTEM PROVIDED HISTORY: Neck pain, recent trauma, TECHNOLOGIST PROVIDED HISTORY: Injury/Trauma Reason for exam: pt had a seizure, FELL OFF TOILET.STRUCK TOP OF HEAD, head and neck pain, tremors Encounter Type: Initial Mechanism of injury: ORDERING SYSTEM PROVIDED DIAGNOSIS CODES: COMPARISON: None TECHNIQUE: Multiplanar CT imaging of the cervical spine without IV contrast. Dose reduction techniques were achieved by using automated exposure control and/or adjustment of mAand/or kV according to patient size and/or use of iterative reconstruction technique. FINDINGS: VERTEBRAL BODIES: Mild straightening of the normal lordotic curvature. No fracture, pars defect, orosseous lesion. FACET JOINTS: No disruption or abnormal widening. CERVICAL DISCS: Moderate narrowing C3-4, C4-5, C5-6 with small posterior endplate osteophytes. CENTRAL CANAL: No evidence of hemorrhage. PARASPINAL AREA: No visible mass. IMPRESSION: 1. No acute bone abnormality. 2. Multilevel mild-moderate degenerative disc disease. Workstation ID: [id number] Exam End: 12/01/20 12:42 Specimen Collected: 12/01/20 13:09 CT HEAD WO CONTRAST; 07/10/2021 7:01 am INDICATION: head injury. COMPARISON: CT Brain, 15 May 2021 ACCESSION NUMBER(S): [id number] ORDERING CLINICIAN: LARRY EUGENE TECHNIQUE: CT of the brain from the skull vertex to the skull base, without intravenous contrast FINDINGS: ACUTE INTRA-AXIAL HEMORRHAGE: Negative ACUTE EXTRA-AXIAL/SUBDURAL HEMORRHAGE: Negative ACUTE INTRACRANIAL MASS EFFECT: Negative CT EVIDENCE OF ACUTE / SUBACUTE TERRITORIAL ISCHEMIA: Negative VENTRICLES: Normal caliber and configuration OTHER BRAIN FINDINGS: No additional findings to note INCLUDED PARANASAL SINUSES: Mucous retention cyst or polyp in left maxillary; others clear INCLUDED MASTOID AIR CELLS: All clear SKULL: No depressed skull fracture. Marked hyperostosis frontalis EXTRACRANIAL SOFT TISSUES: Swelling/hematoma in the scalp of the forehead at and to the left of the midline above the orbital ridge IMPRESSION: NO ACUTE INTRACRANIAL PROCESS. SKULL INTACT. Exam End: 07/10/21 07:01 Sree Cordoba MD - 08/16/2021 EXAMINATION: CT HEAD OR BRAIN WITHOUT CONTRAST DATE: 08/16/2021 HISTORY: Head trauma, abnormal mental status (Age 19-64y); fall w/ [facility], persistent n/v [facility] PCP 30 min appt Injury/Trauma or Illness?:Injury/Trauma How long have you had these symptoms (acute/chronic)?:Acute Reason for exam?:trauma Type of Exam?:Initial COMPARISON: CT brain from [place] of 12/01/2020. TECHNIQUE: Noncontrast CT of the brain was performed. Dose reduction techniques were achieved by using automated exposure control and/or adjustment of mA and/or kV according to patient size and/or use of iterative reconstruction technique. FINDINGS: Motion artifact is shown. Overall ventricles, basal cisterns and sulci are normal in size and configuration. No intracranial hemorrhage noted. No frankly destructive bony lesion. IMPRESSION: Accounting for motion-related artifact, no acute brain parenchymal abnormality, hemorrhage or skullfracture is seen. No suspicious change from 12/01/2020 CT brain at [place]. Nini Garcia MD - 12/22/2022 Patient Name: REEMA SHAH STUDY: CT HEAD WO CONTRAST; 08/24/2022 7:43 am INDICATION: fall, history of thrombocytopenia, abrasion L parietal scalp . COMPARISON: 05/09/2022 ACCESSION NUMBER(S): [id number] ORDERING CLINICIAN: ANDRES HUSSEIN TECHNIQUE: Unenhanced CT images of the head were obtained. FINDINGS: Mild motion artifact noted on the more superior images. The brain parenchyma, ventricular system and extra-axial spaces are within normal limits as visualized sizable. Hill-white differentiation is grossly intact. There is no sizable acute intracranial hemorrhage, mass effect or midline shift. No extraaxial fluid collection. Soft tissue swelling in the left parietal scalp. No acute displaced calvarial fracture. Changes of hyperostosis frontalis interna noted. Mucosal thickening in the posterior left maxillary sinus. Remaining visualized paranasal sinuses are clear. IMPRESSION: No acute intracranial hemorrhage or mass-effect on slightly limited, motion compromised exam. Soft tissue swelling in the left parietal scalp noted. Mild left maxillary sinus mucosal thickening. Exam End: 08/24/22 07:43 Jeb Carranza MD - 01/21/2023 Interpreted By: JEB CARRANZA MD Patient Name: REEMA SHAH STUDY: CT HEAD WO CONTRAST; 01/21/2023 5:05 pm INDICATION: head injury . COMPARISON: 11/26/2022 ACCESSION NUMBER(S): [id number] ORDERING CLINICIAN: LARRY EUGENE TECHNIQUE: Noncontrast axial CT scan of head was performed. Multiplanar reconstructions FINDINGS: No acute intracranial hemorrhage, mass effect, midline shift, or herniation. No evidence of hydrocephalus. The ventricles and sulci are unremarkable for age. Ethmoid and sphenoid sinus mucosal thickening. Hypoplastic frontal sinuses. No acute osseous abnormality of the calvarium. No destructive bone lesion. Hyperostosis frontalis interna. IMPRESSION: No acute intracranial abnormality. Consider follow-up with MRI as warranted. Exam End: -- Specimen Collected: 01/21/23 17:05 Jeb Carranza MD - 01/21/2023 Interpreted By: JEB CARRANZA MD Patient Name: REEMA SHAH STUDY: CT C-SPINE WO CONTRAST; 01/21/2023 5:05 pm INDICATION: fall with head injury . COMPARISON: None. ACCESSION NUMBER(S): [id number] ORDERING CLINICIAN: LARRY EUGENE TECHNIQUE: Axial CT images of the cervical spine are obtained. Axial, coronal and sagittal reconstructions are provided for review. FINDINGS: No acute fracture or subluxation. No vertebral body or disc height loss. Scattered marginal osteophytes C3-C6. Facet arthropathy scattered throughout the cervical spine. No prevertebral hematoma. IMPRESSION: No evidence for an acute fracture or subluxation of the cervical spine. Exam End: -- Specimen Collected: 01/21/23 17:05 Dai Bone DO - 07/16/2023 Interpreted By: DAI BONE DO Patient Name: REEMA SHAH STUDY: CT HEAD WO CONTRAST; 07/16/2023 12:05 am INDICATION: stable . TINEO d/t htn this evening Presented DX Code: R51.9 Headache, unspecified COMPARISON: CT head 01/21/2023 ACCESSION NUMBER(S): [id number] ORDERING CLINICIAN: CAREN GILMAN TECHNIQUE: Noncontrast CT axial images were obtained through the brain. Coronal and sagittal reformats were performed. FINDINGS: The ventricles, sulci and basal cisterns are within normal limits. The mancilla-white matter differentiation is intact. No acute territorial infarct. There is no mass effect or midline shift. There is no extraaxial fluid collection. There is no intracranial hemorrhage. No depressed calvarial fracture. Redemonstration of hyperostosis frontalis interna and hypoplastic frontal sinuses. No air-fluid levels at the visualized paranasal sinuses. The mastoid air cells are clear. IMPRESSION: 1. No acute intracranial hemorrhage or acute territorial infarct. MACRO: None. Exam End: 07/16/23 00:05 CBC: No results found for: WBC, RBC, HGB, HCT, MCV, MCH, MCHC, RDW, PLT, MPV CMP: No results found for: NA, K, CL, CO2, BUN, CREATININE, AGRATIO, LABGLOM, GLUCOSE, GLU, PROT, CALCIUM, BILITOT, ALKPHOS, AST, ALT BMP: No results found for: NA, K, CL, CO2, BUN, CREATININE, CALCIUM, LABGLOM, GLUCOSE, GLU PT/INR: No results found for: PROTIME, INR PTT: No results found for: APTT, PTT[APTT} FLP: No results found for: CHLPL, TRIG, HDL, LDLCALC, LDLDIRECT TSH: No results found for: TSH VITAMIN B12: No results found for: [id number] FERRITIN: No results found for: FERRITIN ---- No results found for: PHENYTOIN, PHENOBARB, VALPROATE, CBMZ No components found for: TOPIRANo results found for: OXCARBAZE, OXCARB @LASTAPPOINTMENTTHISPROV@ No image results found. @RESULTINGLABINFO@ No results found for: LEVETIRACETA, FERRITIN, CRP, CHARLY, ANCA No results found for: KENNY, IMMUNOGLOBUL, OLIGOBANDS No results found for: [id number], HEPCAB No results found for: CRP, ANATITER, ANCA Ref Range & Units 3 wk ago Valproic Acid 50 - 100 ug/mL 48 Low ASSESSMENT AND PLAN: Diagnosis Plan 1. 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 Tremor 3. Frequent falls She has a very complex history of difficult to control seizures. Years ago I did try to get them controlled and had great difficulty with that. I insist that she see our epilepsy team here at [facility] to try to find a better control of her seizures. I will get my old records. Depakote should be increased to 500 mg BID. Continue Keppra will get a level. Years ago I had to put her on benzos to try to get seizure control with limited access to other meds due to insurance limitations.Continue the lorazepam for now. Referral to epilepsy team. She is to continue the primidone. With the frequent falls, it is not safe to increase primidone. Will get blood level. She is already on metoprolol, so no propranolol. She has frequently tried PT without success. Given all of the emergency room visits and no cause onthe CT's (she cannot have an MRI), will ask her to see Dr. Faith at the falls clinic for assistance. I spent 60 minutes caring for this patient today, reviewing labs and records, seeing the patient, documenting in the record and arranging for studies. documented in this [facility]11-02-2023 Miscellaneous Notes* Addendum Note - Valentina Chopra MD - 08/19/2023 10:30 AM EDTAddended by: VALENTINA CHOPRA on: 08/19/2023 11:26 AM Modules accepted: Orders documented in this [facility]11-02-2023 Note* Addendum Note - Valentina Chopra MD - 08/19/2023 10:30 AM EDTAddended by: VALENTINA CHOPRA on: 08/19/2023 11:26 AM Modules accepted: [id number] History of Present illness Narrative* Matthew Pérez MD - 08/16/2023 10:30 AM EDT Subjective Patient ID: Reema Shah is a 47 y.o. female who presents for Contraception (Patient is her today to discuss getting an IUD placed. Patient is having no pelvic pain. ). BRANDEN Benavidez is a 47-year-old woman who was here several months back with recurrent pelvic pain that sheattributed to an IUD that was overdue to come out. She had the IUD removed and was told to contact us if she continued to have the pelvic pain. Patient reports that she has been having frequent bleeding since the IUD was removed. She reports also that she has been having irregular bleeding episodessince the IUD was removed and wishes to have it replaced. She reports that she still has pain and is interested in pursuing a laparoscopy. She reports that today she has no pain but has been having unpredictable episodes of this pain and previously had been told she had endometriosis but never had a laparoscopy. She is interested in pursuing a laparoscopy to evaluate the source of her pelvic painand possibly rule out endometriosis Review of Systems Objective Physical Exam 08/02/2023 3:55 AM 08/06/2023 10:02 AM 08/11/2023 9:18 AM 08/13/2023 7:20 AM 08/13/2023 9:29 AM 08/13/2023 10:56 AM 08/16/2023 10:47 AM Vitals Systolic 164 141 117 161 154 144 160 Diastolic 85 83 81 75 62 60 70 Heart Rate 77 73 72 75 Temp 36.3 C (97.3 F) 36.1 C (97 F) Resp 20 16 16 18 16 Height (in) 1.397 m (4' 7) 1.397 m (4' 7) 1.372 m (4' 6) Weight (lb) 171.96 171 158.73 158 BMI 39.97 kg/m2 39.74 kg/m2 38.27 kg/m2 38.1 kg/m2 BSA (m2) 1.74 m2 1.74 m2 1.66 m2 1.65 m2 Visit Report Report Report Pleasant in no acute distress Breathing comfortably Extremities good mobility Psych appropriately oriented with normal mood and affect Baseline tremor Assessment/Plan Reema is a 47-year-old woman with a history of recurrent pelvic pain who is interested in pursuing a laparoscopy to rule out an endometriosis. Additionally she has been having irregular bleeding since having her IUD removed and wishes to have a new Mirena put in. The risk and including bleeding infection injury to adjacent organs additional surgery anesthesia were discussed with the patient sheverbalized understanding and consent was obtained. She is being consented for a laparoscopy diagnostic as well as a Mirena IUD placement. Preoperatively she will get medical clearance from her primary care doctor she will have blood work a CBC comprehensive metabolic type and screenHemoglobin A1c EKG and a chest x-ray [facility] [place] Work Phone: 1(188) [phone] Emergency department Note* Carmelina Brennan RN - 08/13/2023 7:12 AM EDT [facility] [place] with hypertension. Pt has chronic hypertension took medication this AM documented [facility] this [facility] [place] Work Phone: [phone]) [phone] Emergency department Triage note* Carmelina Brennan RN - 08/13/2023 7:12 AM EDT Pt sent from the [facility] with hypertension. Pt has chronic hypertension took medication this AM [facility] [place] Work Phone: [phone]) 615-781510-07-2023 Emergency department Note* Caren Gilman DO - 07/24/2023 10:58 PM EDT 47-year-old female presents from the [facility] after she slipped in the bathroom and landed on her buttocks. Patient is at her baseline with some intermittent fascicular tremors and facial movements. Patient is requesting Ativan. Patient denies any head or neck trauma. Patient indicated that shedid not want an x-ray. The patient did improve after given Ativan and will be discharged back to the nursing facility. Review of Systems Neurological: Positive for tremors. Psychiatric/Behavioral: The patient is nervous/anxious. All other systems reviewed and are negative. Physical Exam Vitals and nursing note reviewed. Constitutional: Appearance: Normal appearance. HENT: Head: Normocephalic and atraumatic. Eyes: Extraocular Movements: Extraocular movements intact. Pupils: Pupils are equal, round, and reactive to light. Cardiovascular: Rate and Rhythm: Normal rate and regular rhythm. Pulmonary: Effort: Pulmonary effort is normal. Breath sounds: Normal breath sounds. Musculoskeletal: Cervical back: Normal range of motion and neck supple. Skin: General: Skin is warm and dry. Neurological: Mental Status: She is alert and oriented to person, place, and time. Mental status is at baseline. Comments: Patient has some involuntary movements of extremities and face. Some of these may be induced by herself. Labs Reviewed - No data to display No orders to display Procedures Diagnoses as of 07/25/2333 Anxiety Fall, initial encounter Medical Decision Making Problem List Items Addressed This Visit None DO Caren Avina DO 07/25/2333 documented in this [facility] [place] Work Phone: [phone]) [phone] Physician Emergency department Note* Caren Gilman DO - 07/24/2023 10:58 PM EDT 47-year-old female presents from the [facility] after she slipped in the bathroom and landed on her buttocks. Patient is at her baseline with some intermittent fascicular tremors and facial movements. Patient is requesting Ativan. Patient denies any head or neck trauma. Patient indicated that shedid not want an x-ray. The patient did improve after given Ativan and will be discharged back to the nursing facility. Review of Systems Neurological: Positive for tremors. Psychiatric/Behavioral: The patient is nervous/anxious. All other systems reviewed and are negative. Physical Exam Vitals and nursing note reviewed. Constitutional: Appearance: Normal appearance. HENT: Head: Normocephalic and atraumatic. Eyes: Extraocular Movements: Extraocular movements intact. Pupils: Pupils are equal, round, and reactive to light. Cardiovascular: Rate and Rhythm: Normal rate and regular rhythm. Pulmonary: Effort: Pulmonary effort is normal. Breath sounds: Normal breath sounds. Musculoskeletal: Cervical back: Normal range of motion and neck supple. Skin: General: Skin is warm and dry. Neurological: Mental Status: She is alert and oriented to person, place, and time. Mental status is at baseline. Comments: Patient has some involuntary movements of extremities and face. Some of these may be induced by herself. Labs Reviewed - No data to display No orders to display Procedures Diagnoses as of 07/25/2333 Anxiety Fall, initial encounter Medical Decision Making Problem List Items Addressed This Visit None DO Caren Avina DO 07/25/2333 [facility] [place] Work Phone: [phone]) 426-408509-26-2023 History of Present illness Narrative* Jeanie Ayala MD - 07/13/2023 9:30 AM EDT Subjective Patient ID: Reema Shah is a 47 y.o. female who presents for Follow-up (1 mo fu pt co noticing blood when she wipes and trouble urinating). Here for med refill Noticed blood blood from vagina or urine when wiping after urinating, some time some burning when urinats Reports 3 period since her IUD removed by her SSAS DEVELOPER Review of Systems Constitutional: Negative. Negative for chills and fever. HENT: Negative. Negative for congestion. Eyes: Negative. Negative for discharge. Respiratory: Negative. Negative for cough, shortness of breath and wheezing. Cardiovascular: Negative. Negative for chest pain, palpitations and leg swelling. Gastrointestinal: Negative. Negative for abdominal distention, abdominal pain, constipation, diarrhea, nausea and vomiting. Endocrine: Negative. Genitourinary: Positive for dysuria and vaginal bleeding. Negative for urgency. Musculoskeletal: Negative. Negative for back pain, joint swelling and neck stiffness. Skin: Negative. Negative for rash. Allergic/Immunologic: Negative. Negative for immunocompromised state. Neurological: Negative. Negative for light-headedness, numbness and headaches. Hematological: Negative. Negative for adenopathy. Psychiatric/Behavioral: Negative. Negative for agitation, behavioral problems and confusion. All other systems reviewed and are negative. Objective Physical Exam Vitals reviewed. Constitutional: General: She is not in acute distress. Appearance: Normal appearance. HENT: Head: Normocephalic and atraumatic. Nose: Nose normal. Eyes: Conjunctiva/sclera: Conjunctivae normal. Pupils: Pupils are equal, round, and reactive to light. Neck: Vascular: No carotid bruit. Cardiovascular: Rate and Rhythm: Normal rate and regular rhythm. Pulses: Normal pulses. Heart sounds: No gallop. Pulmonary: Effort: Pulmonary effort is normal. No respiratory distress. Breath sounds: Normal breath sounds. No wheezing. Abdominal: General: Bowel sounds are normal. Palpations: Abdomen is soft. Tenderness: There is no abdominal tenderness. Musculoskeletal: General: Normal range of motion. Cervical back: Normal range of motion. No rigidity. Lymphadenopathy: Cervical: No cervical adenopathy. Skin: General: Skin is warm. Findings: No rash. Neurological: General: No focal deficit present. Mental Status: She is alert and oriented to person, place, and time. Psychiatric: Mood and Affect: Mood normal. Behavior: Behavior normal. BP 132/88 (BP Location: Left arm, Patient Position: Sitting) Pulse 64 Ht 1.397 m (4' 7) Wt 81.6 kg (180 lb) BMI 41.84 kg/m Hemoglobin A1C Date/Time Value Ref Range Status 06/02/2023 07:24 AM 5.1 % Final Comment: Diagnosis of Diabetes-Adults Non-Diabetic: < or = 5.6% Increased risk for developing diabetes: 5.7-6.4% Diagnostic of diabetes: > or = 6.5% . Monitoring of Diabetes Age (y) Therapeutic Goal (%) Adults: >18 <7.0 Pediatrics: 13-18 <7.5 7-12 <8.0 0- 6 7.5-8.5 [employer]eless [employer]. Diabetes Care 33(S1), Oct 2009. Assessment/Plan Problem List Items Addressed This Visit Anxiety Relevant Medications LORazepam (Ativan) 1 mg tablet Hypertension Other Visit Diagnoses Vagina bleeding - Primary Dysuria Relevant Orders POCT UA Automated manually resulted (Completed) To see her own vp of product,pt agreed OARRS HAS BEEN REVIEWED AND IS CONSISTENT WITH PRESCRIBED MEDICATIONS, CONSIDERED THE RISK OF ABUSE, DEPENDENCE, ADDICTION AND DIVERSION, MEDICATION IS FELT TO BE CLINICALLY APPROPRIATE ON THE DOCUMENTED DIAGNOSIS Ua noticed MDM 1) COMPLEXITY: 1 UNDIAGNOSED NEW PROBLEM WITH UNCERTAIN PROGNOSIS 2)DATA: TESTS INTERPRETED AND OR ORDERED, TOOK INDEPENDENT HISTORY OR RECORDS REVIEWED 3)RISK: MODERATE RISK DUE TO NATURE OF MEDICAL CONDITIONS/COMORBIDITY OR MEDICATIONS ORDERED OR SURGICAL OR PROCEDURE REFERRAL, . Fu 1 mo documented in this [facility] [place] Work Phone: [phone]) [phone] History of Present illness NarrativeAgree with CC as noted, Elle is a pleasant 47-year-old female arrived in wheelchair from assistedliving for follow-up of right knee pain. Sometimes knee hurts with bending leg and pushing self up in recliner, BioFreeze helps short term. Tylenol helps with pain control. Has not started PT yet. Filled out paperwork last week. Has not gotten schedule from assisted living that helps set appts and t ransportation. Patient also inquired about cortisone injection for her back at end of visit, history of low back pain and T-spine fracture November 2021. [facility] Work Phone: 1([phone]) [phone] History of Present illness Narrative* Jeanie Ayala MD - 05/04/2023 9:45 AM EDT Subjective Patient ID: Reema Shah is a 47 y.o. female who presents for Follow-up (Med refill today). Here for fu for med refill Review of Systems Constitutional: Negative. Negative for chills and fever. HENT: Negative. Negative for congestion. Eyes: Negative. Negative for discharge. Respiratory: Negative. Negative for cough, shortness of breath and wheezing. Cardiovascular: Negative. Negative for chest pain, palpitations and leg swelling. Gastrointestinal: Negative. Negative for abdominal distention, abdominal pain, constipation, diarrhea, nausea and vomiting. Endocrine: Negative. Genitourinary: Negative. Negative for dysuria and urgency. Musculoskeletal: Negative. Negative for back pain, joint swelling and neck stiffness. Skin: Negative. Negative for rash. Allergic/Immunologic: Negative. Negative for immunocompromised state. Neurological: Negative. Negative for light-headedness, numbness and headaches. Hematological: Negative. Negative for adenopathy. Psychiatric/Behavioral: Negative. Negative for agitation, behavioral problems and confusion. All other systems reviewed and are negative. Objective Physical Exam Vitals reviewed. Constitutional: General: She is not in acute distress. Appearance: She is obese. HENT: Head: Normocephalic and atraumatic. Nose: Nose normal. Eyes: Conjunctiva/sclera: Conjunctivae normal. Pupils: Pupils are equal, round, and reactive to light. Neck: Vascular: No carotid bruit. Cardiovascular: Rate and Rhythm: Normal rate and regular rhythm. Pulses: Normal pulses. Heart sounds: No gallop. Pulmonary: Effort: Pulmonary effort is normal. No respiratory distress. Breath sounds: Normal breath sounds. No wheezing. Abdominal: General: Bowel sounds are normal. Palpations: Abdomen is soft. Tenderness: There is no abdominal tenderness. Musculoskeletal: General: Normal range of motion. Cervical back: Normal range of motion. No rigidity. Lymphadenopathy: Cervical: No cervical adenopathy. Skin: General: Skin is warm. Findings: No rash. Neurological: General: No focal deficit present. Mental Status: She is alert and oriented to person, place, and time. Psychiatric: Mood and Affect: Mood normal. Behavior: Behavior normal. BP 110/76 (BP Location: Left arm, Patient Position: Sitting) Pulse 72 Ht 1.397 m (4' 7) Wt 81.6 kg (180 lb) BMI 41.84 kg/m Hemoglobin A1C Date/Time Value Ref Range Status 08/05/2021 08:50 AM 5.2 % Final Comment: Diagnosis of Diabetes-Adults Non-Diabetic: < or = 5.6% Increased risk for developing diabetes: 5.7-6.4% Diagnostic of diabetes: > or = 6.5% . Monitoring of Diabetes Age (y) Therapeutic Goal (%) Adults: >18 <7.0 Pediatrics: 13-18 <7.5 7-12 <8.0 0- 6 7.5-8.5 Stateless Diabetes Association. Diabetes Care 33(S1), Oct 2009. Assessment/Plan Problem List Items Addressed This Visit Anxiety Relevant Medications LORazepam (Ativan) 1 mg tablet OARRS HAS BEEN REVIEWED AND IS CONSISTENT WITH PRESCRIBED MEDICATIONS, CONSIDERED THE RISK OF ABUSE, DEPENDENCE, ADDICTION AND DIVERSION, MEDICATION IS FELT TO BE CLINICALLY APPROPRIATE ON THE DOCUMENTED DIAGNOSIS AVOID NSAIDS INCREASE FLUID INTAKE Fu 1 mo bw documented in this [facility] Work Phone: [phone] History of Present illness Narrative* Jeanie Ayala MD - 02/25/2023 2:00 PM EDT Subjective Patient ID: Reema Shah is a 47 y.o. female who presents for Follow-up (FU ER FOR HIGH BLOODPRESSURE). Here for high BP Depression not very well under control; Review of Systems Constitutional: Negative. Negative for chills and fever. HENT: Negative. Negative for congestion. Eyes: Negative. Negative for discharge. Respiratory: Negative. Negative for cough, shortness of breath and wheezing. Cardiovascular: Negative. Negative for chest pain, palpitations and leg swelling. Gastrointestinal: Negative. Negative for abdominal distention, abdominal pain, constipation, diarrhea, nausea and vomiting. Endocrine: Negative. Genitourinary: Negative. Negative for dysuria and urgency. Musculoskeletal: Negative. Negative for back pain, joint swelling and neck stiffness. Skin: Negative. Negative for rash. Allergic/Immunologic: Negative. Negative for immunocompromised state. Neurological: Negative. Negative for light-headedness, numbness and headaches. Hematological: Negative. Negative for adenopathy. Psychiatric/Behavioral: Negative. Negative for agitation, behavioral problems and confusion. All other systems reviewed and are negative. Objective Physical Exam Vitals reviewed. Constitutional: General: She is not in acute distress. Appearance: She is obese. Comments: wc HENT: Head: Normocephalic and atraumatic. Comments: Right ear wax plug Nose: Nose normal. Eyes: Conjunctiva/sclera: Conjunctivae normal. Pupils: Pupils are equal, round, and reactive to light. Neck: Vascular: No carotid bruit. Cardiovascular: Rate and Rhythm: Normal rate and regular rhythm. Pulses: Normal pulses. Heart sounds: No gallop. Pulmonary: Effort: Pulmonary effort is normal. No respiratory distress. Breath sounds: Normal breath sounds. No wheezing. Abdominal: General: Bowel sounds are normal. Palpations: Abdomen is soft. Tenderness: There is no abdominal tenderness. Musculoskeletal: General: Normal range of motion. Cervical back: Normal range of motion. No rigidity. Lymphadenopathy: Cervical: No cervical adenopathy. Skin: General: Skin is warm. Findings: No rash. Neurological: General: No focal deficit present. Mental Status: She is alert and oriented to person, place, and time. Psychiatric: Mood and Affect: Mood normal. Behavior: Behavior normal. BP (!) 178/102 (BP Location: Right arm, Patient Position: Sitting) Pulse 70 Ht 1.397 m (4' 7) Wt 81.6 kg (180 lb) BMI 41.84 kg/m Hemoglobin A1C Date/Time Value Ref Range Status 08/05/2021 08:50 AM 5.2 % Final Comment: Diagnosis of Diabetes-Adults Non-Diabetic: < or = 5.6% Increased risk for developing diabetes: 5.7-6.4% Diagnostic of diabetes: > or = 6.5% . Monitoring of Diabetes Age (y) Therapeutic Goal (%) Adults: >18 <7.0 Pediatrics: 13-18 <7.5 7-12 <8.0 0- 6 7.5-8.5 Stateless Diabetes Association. Diabetes Care 33(S1), Oct 2009. Assessment/Plan Problem List Items Addressed This Visit Circulatory Hypertension - Primary Relevant Medications metoprolol tartrate (Lopressor) 25 mg tablet Other Depression, major, single episode, severe (CMS/HCC) Relevant Medications sertraline (Zoloft) 100 mg tablet Sedative, hypnotic or anxiolytic dependence with withdrawal, unspecified (CMS/HCC) Other Visit Diagnoses Impacted cerumen of right ear Relevant Medications carbamide peroxide (Debrox) 6.5 % otic solution Labs reviewed with pt MONITOR BP GOAL BP LOWER THAN 130/80 LOW SALT EXERCISE DAILY MDM 1) COMPLEXITY: 1 OR MORE CHRONIC CONDITION WITH EXACERBATION, OR PROGRESSION OR SIDE EFFECT OF TREATMENT ADDRESSED 2)DATA: TESTS INTERPRETED AND OR ORDERED, TOOK INDEPENDENT HISTORY OR RECORDS REVIEWED 3)RISK: MODERATE RISK DUE TO NATURE OF MEDICAL CONDITIONS/COMORBIDITY OR MEDICATIONS ORDERED OR SURGICAL OR PROCEDURE REFERRAL, . Reeval in office 1 week documented in this [facility] Work Phone: [phone] History of Present illness Narrative* She is here for follow-up secondary to chronic kidney disease with a baseline creatinine of 1.1-1.4, history of hypertension with some recent hypotension * At her last visit we stopped her vitamin D lisinopril doxazosin and ergocalciferol * We also stopped her PPI * She has been having her blood pressure checked at the [facility] * Her blood pressure is ranging on the high side. She is ranging from about the 150s to the 180s systolically. She has very few blood pressure readings below 140 she does have a few however they are very limited and for the most part she is ranging pretty consistently in the 150s to 170s systolic. * Here in the office today her blood pressure was 148/90 * Blood work was done on February 20 * Her hemoglobin is 13.3 * Metabolic panel shows a BUN of 24 creatinine of 1.12 electrolytes look very good and within normal range at this time * Magnesium is 1.77 phosphorus 3.2 uric acid 4.3 vitamin D is 44 PTH 35 on February 16 her urinalysis showspositive protein and blood with trace leukocyte esterase * She has 245 of albumin * Medications are reviewed and include allopurinol amlodipine calcium with vitamin D Depakote famotidine Keppra Lipitor lisinopril magnesium metoprolol potassium * She has pain in her left leg * Feels dizzy at times * Has had falls * Painin her arms and fingertips and also chest pain at [facility] * Pain is pretty much everywhere. * Wasin ER with a BP of 258/1502 but in ER was 168/90. * No other issues noted. [facility] Mohinder 3 DO Work Phone: [phone] History of Present illness Narrative* She is here for new patient visit * Referred secondary to chronic kidney disease * My evaluation and plan is communicated back via the electronic medical record * Recent blood work was drawn on January 21 * Hemoglobin is 12.6 * Metabolic panel shows a BUN of 24 creatinine of 1.32 her creatinine has ranged from 1.1 to up to 1.47 and this has been going on since December 2021. She has had multiple blood checks for the last year with kidney function quite stable right around that area. * Electrolytes actually look pretty good her sodium is 134 calcium is normal * Magnesium is 1.63 in December a urinalysis was done that shows positive protein and blood there was also leukocyte esterase at that time * Medications are reviewed and they include allopurinol, amlodipine, calcium and vitamin D, doxazosinfamotidine levothyroxine Lipitor lisinopril magnesium metoprolol a PPI potassium * She really has polypharmacy * She currently resides at the [facility] * She has knownshe has kidneyfailure since sshe was 25 y/o. * Does not take NSAIDs * [facility] and [facility] Mohinder 3 DO Work Phone: [phone] History of Present illness NarrativeAgree with CC as noted, Elle is a pleasant 47-year-old female arrived in wheelchair from assistedliving for follow-up of right knee pain. Sometimes knee hurts with bending leg and pushing self up in recliner, BioFreeze helps short term. Tylenol helps with pain control. Has not started PT yet. Filled out paperwork last week. Has not gotten schedule from assisted living that helps set appts and t ransportation. Patient also inquired about cortisone injection for her back at end of visit, history of low back pain and T-spine fracture November 2021. [facility] Work Phone: [phone] History of Present illness Narrative* Sammie Iglesias MD - 01/12/2023 11:15 AM EDT Subjective Patient ID: Reema Shah is a 47 y.o. female who presents for Follow-up (VIRTUAL [phone](NURSE WITH [facility]) - F/U ER DX COVID. PT STILL HAS CONGESTION AND [facility] AND VOMITING STOPPED SUN AFTERNOON.). HPI VIRTUAL VISIT F/U AFTER ER VISIT FOR COUGH AND SOB AND WAS DX WITH COVID INFECTION. HAD LABS , CXR AND UA DONE AND WAS PUT ON MACROBID FOR CYSTITIS. STILL HAS COUGH AND CHEST CONGESTION LEFT ,BUT LESS SEVERE . B/LEAR PAIN 3/10 W/O CHANGE IN HEARING. Review of Systems Constitutional: Negative for chills and fever. HENT: Positive for congestion and ear pain. Negative for postnasal drip and rhinorrhea. Eyes: Negative. Negative for visual disturbance. Respiratory: Positive for cough. Negative for shortness of breath and wheezing. Cardiovascular: Negative. Negative for chest pain, palpitations and leg swelling. Gastrointestinal: Negative. Negative for abdominal distention, abdominal pain, constipation, diarrhea, nausea and vomiting. Endocrine: Negative. Genitourinary: Negative for dysuria and urgency. Musculoskeletal: Negative. Negative for back pain. Skin: Negative. Negative for rash. Allergic/Immunologic: Negative for immunocompromised state. Neurological: Negative. Negative for dizziness, weakness, light-headedness and headaches. Psychiatric/Behavioral: Negative. Negative for agitation. Objective Physical Exam Constitutional: Appearance: Normal appearance. Neurological: Mental Status: She is alert. Assessment/Plan Problem List Items Addressed This Visit Infectious/Inflammatory COVID-19 - Primary Other Visit Diagnoses Cough in adult Relevant Medications benzonatate (Tessalon) 200 mg capsule Chest congestion Otalgia of both ears Relevant Medications axgtvons-vcpzfuwen-OX (Cortisporin) otic solution Acute cystitis with hematuria TEST RESULTS WERE DISCUSSED. ADVISED TO FINISH THE COURSE OF MACROBID. OFFERED A COURSE OF PO PREDNISONE TX, PT REFUSED. ADVISED TO USE THE ALBUTEROL MDI WV FOR COUGH. PT. WAS INSTRUCTED TO INCREASE FLUID INTAKE ,TAKE TYLENOL 650 MG PO Q6H/PRN FOR PAIN OR FEVER AND TAKE ROBITUSSIN OTC 2 TSP Q 6H/PRN FOR COUGH. MDM 1) COMPLEXITY: 1 UNDIAGNOSED NEW PROBLEM WITH UNCERTAIN PROGNOSIS 2)DATA: TESTS INTERPRETED AND OR ORDERED, TOOK INDEPENDENT HISTORY OR RECORDS REVIEWED 3)RISK: MODERATE RISK DUE TO NATURE OF MEDICAL CONDITIONS/COMORBIDITY OR MEDICATIONS ORDERED OR SURGICAL OR PROCEDURE REFERRAL, . 3 WEEKS IN PERSON FOR F/U ON COUGH. [facility] Work Phone: [phone] Instructions* Patient Instructions* Sammie Iglesias MD - 01/12/2023 11:15 AM EDT 3 WEEKS IN PERSON FOR F/U ON COUGH. [facility] Work Phone: [phone] History of Present illness NarrativeAgree with CC as noted, Elle is a pleasant 47-year-old female arrived in wheelchair from [facility] for follow-up of right knee pain. Sometimes knee hurts with bending leg and pushing self up in recliner, BioFreeze helps short term. Tylenol helps with pain control. Has not started PT yet. Filled out paperwork last week. Has not gotten schedule from assisted living that helps set appts and t ransportation. Patient also inquired about cortisone injection for her back at end of visit, history of low back pain and T-spine fracture November 2021.[facility] [address] Work Phone: [phone] NoteMessage REEMA BRITTNYHENRY canceled today . Patient cancelled initial evaluation this date d/t illness. Signatures Electronically signed by : Trice Tejada, PT; Dec 02 2022 12:28PM EST (Author) [id number] Chief complaint Narrative - Reported* An interactive audio and video telecommunication system which permits real time communications between the patient (at the originating site) and provider (at the distant site) was utilized to providethis telehealth service. * Verbal consent was requested and obtained from REEMA SHAH on this date, 11/23/2022 03:15 PM ,for a telehealth visit. * PT CO SINUS CONGESTION SOME COUGH DENIES FEVER AND SORE THROAT THIS HAS BEEN ONGOING FOR 2 WKS SHE HAS NOT BEEN TESTED FOR COVID -[facility] Work Phone: [phone] History of Present illness Narrative* 47-year-old lady with a medical history of hypertension, epilepsy, obesity here for evaluation of the following complaints: * Dizziness * -Patient notes that she has episodes where she heats up; and these happen 2- 3 times a day and have been going on for the past few months; these are also associated with dizziness * These are also associated with worsening blood pressure. Outside of these episodes she denies any exertional angina or shortness of breath. Denies any orthopnea/PND/lower extremity edema. Denies any syncopal episode [facility] Work Phone: [phone] History of Present illness Bob is a 47-year-old who reports a history of recurrent pelvic pain that started about 4 5 months ago. The patient believes that she was due to have her Mirena IUD removed in September 2022. She reports that it has been in for 5 years. She also reports that she has periodic episodes of spotting when voiding and happens very infrequently every 3 to 4 months. Patient currently is not sexually active denies any UTI symptoms denies any abnormal discharge. Patient reports when the pain comes it doubles her over and she does get some relief with Tylenol. She reports that she cannot take ibuprofen. Patient reports that twice previously she had been being prepared for hysterectomy the first timewas approximately 20 years ago but at that point was found to be extremely anemic and her surgery was canceled. She reports that subsequently her and Dr. Velasquez had talked about pursuing surgery for possible fibroids and endometriosis but that was not further pursued for unclear reasons.[address] Work Phone: [phone] History of Present illness Bob is a 47-year-old woman who comes in to discuss the results of her work-up done for chronic pelvic pain that has been going on for now for approximately 4 months. Patient also reports that shewas supposed to have the IUD removed in September 2022. Patient reports that she was told that she may have endometriosis. To the best of the patient's recollection the IUD was put in to help with endometriosis[address] Work Phone: [phone] History of Present illness NarrativeAgree with CC as noted. Rosa Elena is a pleasant 47-year-old female accompanied by staff member from the assisted [facility] for reevaluation of right knee pain. Patient did get a cortisone shot 2 months ago which she does believe helps with the pain, she reports she is getting PT and denies any new injuries or falls. Patient does wear the knee brace with activity, however it is noted to be applied backwards. Patient does not have any updates from her therapy she is receiving at the assisted living facility. Patient does use Tylenol which does seem to help, patient states she has Biofreeze which helps some but she wants to switch to IcyHot because she believes this provides better relief.[facility] [address] Work Phone: [phone] History of Present illness NarrativeReema is a pleasant 47-year-old female that arrives from assisted [facility] for recheck of bilateralknee pain. Patient states her right knee is aggravated and current pain level of 9 out of 10. Patient states she fell on 08/24/2022 striking her head, right buttock and right hip. She denies any new injury to the knee. She was seen in the ED and recommended to follow-up as needed. Patient has been us ing the Voltaren gel and rotating with Biofreeze with some relief. She is requesting an IcyHot prescription instead of the Biofreeze. She feels this is worked better in the past. Patient is wearing the hinged knee brace with ambulation. She does states she is walking with her walker, very little p atient states she has not received any PT on her knee but does have PT come to her apartment and work on her gait. There are no attendance with the patient today, there is no reflection of any PT notes in the packet from assisted living provided today.[facility] [address] Work Phone: [phone] History of Present illness NarrativeAgree with CC as documented. Patient states her pain is worse since her last visit here. She reports PT has not been started to address her legs or knees. She notes she has been performing less activity since her last visit and noted some mild lower extremity edema. Patient states her neurologist DC'd the topical diclofenac but it was restarted yesterday per her PCP. She does get some relief for short-term with use of this on her knees. She also uses Biofreeze with moderate relief. Patient alsostates her p.o. ketorolac was recently discontinued and she noticed an increase in pain after that was changed. She denies any falls or new injuries. Patient states she has been advised to take Tylenol as needed for pain symptoms. She is accompanied by an aide from her assisted living for today's visit.[facility] [address] Work Phone: [phone] History of Present illness Narrative* 47-year-old lady with a medical history of hypertension, epilepsy, obesity here for evaluation of the following complaints: * Dizziness * -Patient notes that she has episodes where she heats up; and these happen 2- 3 times a day and have been going on for the past few months; these are also associated with dizziness * These are also associated with worsening blood pressure. Outside of these episodes she denies any exertional angina or shortness of breath. Denies any orthopnea/PND/lower extremity edema. Denies any syncopal episode [facility] Work Phone: [phone] History of Present illness Narrative* 47-year-old lady with a medical history of hypertension, epilepsy, obesity here for evaluation of the following complaints: * Dizziness * -Patient notes that she has episodes where she heats up; and these happen 2- 3 times a day and have been going on for the past few months; these are also associated with dizziness * These are also associated with worsening blood pressure. Outside of these episodes she denies any exertional angina or shortness of breath. Denies any orthopnea/PND/lower extremity edema. Denies any syncopal episode [address] Work Phone: [phone] Chief complaint Narrative - Reported* An interactive audio and video telecommunication system which permits real time communications between the patient (at the originating site) and provider (at the distant site) was utilized to providethis telehealth service. * Verbal consent was requested and obtained from REEMA SHAH on this date, 12/03/2021 03:45 PM ,for a telehealth visit. * MEDICATION REFILL ATIVAN [facility] Work Phone: [phone] Chief complaint Narrative - Reported* An interactive audio and video telecommunication system which permits real time communications between the patient (at the originating site) and provider (at the distant site) was utilized to providethis telehealth service. * Verbal consent was requested and obtained from REEMA SHAH on this date, 12/03/2021 03:45 PM ,for a telehealth visit. * MEDICATION REFILL ATIVAN [facility] Work Phone: [phone] Chief complaint Narrative - Reported* An interactive audio and video telecommunication system which permits real time communications between the patient (at the originating site) and provider (at the distant site) was utilized to providethis telehealth service. * Verbal consent was requested and obtained from REEMA SHAH on this date, 11/04/2021 01:15 PM ,for a telehealth visit. * VIRTUAL VISIT - F/U LABS. C/O FALL X 3 LAST WEEK - ONCE IN THE BATHROOM AND TWICE IN THE LIVING ROOM. FELL FLAT ON HER BACK - DENIES HITTING HER HEAD. STILL HAS BACK, B/L SHOULDER, AND NECK PAIN. [facility] Work Phone: [phone] Chief complaint Narrative - Reported* An interactive audio and video telecommunication system which permits real time communications between the patient (at the originating site) and provider (at the distant site) was utilized to providethis telehealth service. * Verbal consent was requested and obtained from REEMA SHAH on this date, 11/04/2021 01:15 PM ,for a telehealth visit. * VIRTUAL VISIT - F/U LABS. C/O FALL X 3 LAST WEEK - ONCE IN THE BATHROOM AND TWICE IN THE LIVING ROOM. FELL FLAT ON HER BACK - DENIES HITTING HER HEAD. STILL HAS BACK, B/L SHOULDER, AND NECK PAIN. -[facility] Work Phone: [phone]) [phone] History of Present illness NarrativePatient is a 45-year-old woman with a history of chronic pain who was seen 2 weeks ago she is here for results of her cultures and her ultrasound. At her previous visit she was found to have bacterial vaginosis and was started on Flagyl. The patient indicates that she has completed the treatment. The patient reports overall she is feeling better except for the recent fall she had last week where she broke her nose. [facility] has no concerns [facility] Work Phone: [phone] History of Present illness Narrative* Patient presents today as Dr Ayala patient, resident at [facility].... * 1 follow up ER x 3 * ER 1 - She was seen in the ER may 14 for L chest pain and after work up felt this was more M/S chest wall pain and discharged home * ER visit 2 - She was seen in the ER May 15 for shaking feeling and difficulty walking in addition to muscle twitch - She states at this time the ativan she was given for some of these symptoms had been stopped. She was given Ativan in the ER which did improve her symptoms. and again work up in theER was approp so she was discharged home * ER Visit 3 - She was seen in the ER may 18 for anxiety since stopping the ativan. she claims she wason 3.5 mg daily. she cont to note shakey feeling. while in the ER she had low K level which was replaced, lactic acid was elevated - there was question as to if this was seizure with her movement phipps maddy she was coherent the entire time. She was discharged with 3 day course of ativan 1 mg bid * Patient claims she was on ativan d/t her seizures but denies following with neuro in sometime * Pt was on this med since 1993 per patient and she was following with neuro but denies seeing neuro in sometime. She was following with [facility] [place] and she had been filling up until sep 2020. Pt was seen at [facility] through March 2021 and so this med was filled by Dr Ayala (per patient). I can see in March He did do script for her for 30 days taking 2 tabin AM and 1.5 in PM. She ran out just a few days ago and states that is when all these symptoms flare up. She is set to follow with alma /psych later this month * 2 pain * knee pain * she did fall this weekend and bumped her knee so noted L knee pain. she did have xray done in aug 2019 which was WNl. She states her knee is better at this time * She does complain of Low back pain for years and did have work up don t years ago in [place] but Les not see anything recently. she states she has been told to take tylenol for pain but this does not offer relief -[facility] Internal Medicine Work Phone: [phone] History of Present illness Narrative* Ania Jordan MA - 03/27/2019 3:06 PM EDT Thank you for the update. * Jemma Figueroa RN - 03/27/2019 12:01 PM EDT Pt. returned CASSANDRA follow up message. Evaluated at [place] ED on 03/18/19 after falling and hitting back of her head, denies loss of consciousness. Describes falling every two steps. C/o shaking I'm almost going into a seizure. At discharge from ED, ED MD contacted Neurology. Pt. returned to [id number] mg po TID. Has not restarted Trokendi. Neuro attempting to complete preauth. on 03/17/19. Pt updated samples available from Neurologist on 03/17/19. Pt. initially did not remember sample availability - then described no transportation. Currently at [facility] room 120 bed #2. Plans to stay in SNF and transfer to [facility] after 30 day rehab for ambulation and balance. Phone [facility] , Left message with Milagro Donato/bonnie assistant media planner. Phoned Dr. Patino, Neurology, faced most recent SED visit plan and pt. Living arrangements - rehab. documented in this [id number] History of Present illness Narrative* F/U AFTER TEST * C/O LUQ PAIN, HAD A RING 5-6 YEARS AGO FOR GERD IN [place], STILL GET FREQUENT HEART CHEEMA * RUQ pain resolved [facility] Internal Medicine Work Phone: [phone] History of Present illness Narrative* F/U AFTER TEST * C/O LUQ PAIN, HAD A RING 5-6 YEARS AGO FOR GERD IN [place], STILL GET FREQUENT HEART CHEEMA * RUQ pain resolved [facility] Internal Medicine Work Phone: [phone] History of Present illness NarrativeF/U AFTER ER VISIT FOR FALL . HAD CT OF HEAD AND FACIAL BONES DONE WITH XR OF L KNEE AND WAS DX WITH NASAL FRACTURE. HAS DIZZINESS ON AND OFF , LASTING SEVERAL HOURS. B/L EAR PAIN 2-12/25.[facility] Internal Medicine Work Phone: chief complaint Narrative - Reported1 MO MED RF PT CO B/L EAR PAIN TODAY AND NEEDS [facility] Work Phone: chiry complaint Narrative - ReportedFollow-up) re- evaluation of bilateral knee pain. She states her pain is worse since her previous evaluation. R > L. She continues to wear a knee brace on the right knee. She is wheelchair bound. She states the topical nsaid she used provided short-term relief however she was advised to discontinue by her neurologist and he is trying a different medication she states. She is accompanied by an aid, Basim, for the visit.[facility] [address] Work Phone: chief complaint Narrative - ReportedPT HERE FOR 1 MO F/U. PT WOULD LIKE A [facility]AL [facility] Work Phone: Evaluation note* Diagnosis Fracture of bone of nasal sinus (HCC)- [facility] Diagnosis Migraine without status migrainosus, not intractable, unspecified migraine type- Primary [facility]* Diagnosis Primary hypertension- Primary Unspecified essential hypertension Sedative, hypnotic or anxiolytic dependence with withdrawal, unspecified (CMS/HCC) Depression, major, single episode, severe (CMS/HCC) Impacted cerumen of right ear Impacted cerumen documented in this encounter [facility] [place] Work Phone: Evaluation note* Diagnosis Anxiety Anxiety state, unspecified documented in this encounter [facility] [place] Work Phone: [phone] note* Diagnosis Vagina bleeding- Primary Other specified noninflammatory disorder of vagina Dysuria Anxiety Anxiety state, unspecified Primary hypertension Unspecified essential hypertension documented in this encounter [facility] [place] Work Phone: [phone] note* Diagnosis Anxiety- Primary Anxiety state, unspecified Fall, initial encounter documented in this encounter [facility] [place] Work Phone: [phone] note* Diagnosis Chronic systolic (congestive) heart failure (CMS/HCC)- Primary Anxiety Anxiety state, unspecified Depression, major, single episode, severe (CMS/HCC) Generalized epilepsy (CMS/HCC) Unspecified epilepsy without mention of intractable epilepsy Sedative, hypnotic or anxiolytic dependence with withdrawal, unspecified (CMS/HCC) Stage 3a chronic kidney disease (CMS/HCC) Fatty liver Other chronic nonalcoholic liver disease Thrombocytopenia (CMS/HCC) Unspecified thrombocytopenia documented in this encounter [facility] [place] Work Phone: [phone] note* Diagnosis Primary hypertension- Primary Unspecified essential hypertension Renal insufficiency Unspecified disorder of kidney and ureter documented in this encounter [facility] [place] Work Phone: [phone] note* Diagnosis Pre-op exam- Primary Menorrhagia with irregular cycle Screen for STD (sexually transmitted disease) Screening examination for venereal disease Pelvic pain documented in this encounter [facility] [place] Work Phone: Evaluation note* Diagnosis 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)- Primary Tremor Abnormal involuntary movements Frequent falls [facility] Diagnosis Pelvic pain Irregular bleeding Irregular menstrual cycle Preop testing Unspecified pre-operative examination Fall, initial encounter- Primary Pelvic pain Irregular bleeding Irregular menstrual cycle Preop testing Unspecified pre-operative examination documented in this encounter [facility] [place] Work Phone: Evaluation note* Diagnosis Pelvic pain Irregular bleeding Irregular menstrual cycle Preop testing Unspecified pre-operative examination Preop testing Unspecified pre-operative examination Pelvic pain Irregular bleeding Irregular menstrual cycle Preop testing Unspecified pre-operative examination documented in this encounter [facility] [place] Work Phone: [phone] note* Diagnosis Pelvic pain Irregular bleeding Irregular menstrual cycle Preop testing Unspecified pre-operative examination Preop testing Unspecified pre-operative examination Pelvic pain Irregular bleeding Irregular menstrual cycle Preop testing Unspecified pre-operative examination documented in this encounter [facility] [place] Work Phone: Evaluation note* Diagnosis Pelvic pain Irregular bleeding Irregular menstrual cycle Preop testing Unspecified pre-operative examination Preop testing Unspecified pre-operative examination Pelvic pain Irregular bleeding Irregular menstrual cycle Preop testing Unspecified pre-operative examination documented in this encounter [facility] [place] Work Phone: [phone] note* Diagnosis Pelvic pain Irregular bleeding Irregular menstrual cycle Preop testing Unspecified pre-operative examination Fatty liver- Primary Other chronic nonalcoholic liver disease Anxiety Anxiety state, unspecified Stage 3a chronic kidney disease (CMS/HCC) Hyperglycemia Other abnormal glucose Abnormal EKG Nonspecific abnormal electrocardiogram (ECG) (EKG) Chest pain, unspecified type Pelvic pain Irregular bleeding Irregular menstrual cycle Preop testing Unspecified pre-operative examination documented in this encounter [facility] [place] Work Phone: [phone] note* Diagnosis Pelvic pain Irregular bleeding Irregular menstrual cycle Preop testing Unspecified pre-operative examination Contusion of head, unspecified part of head, initial encounter- Primary Fall, initial encounter Contusion of right elbow, initial encounter Abrasion of right elbow, initial encounter Pelvic pain Irregular bleeding Irregular menstrual cycle Preop testing Unspecified pre-operative examination documented in this encounter [facility] [place] Work Phone: Evaluation note* Diagnosis Pelvic pain Irregular bleeding Irregular menstrual cycle Preop testing Unspecified pre-operative examination Tachycardia- Primary Unspecified tachycardia Preop testing Unspecified pre-operative examination Pelvic pain Irregular bleeding Irregular menstrual cycle Preop testing Unspecified pre-operative examination documented in this encounter [facility] [place] Work Phone: Evaluation note* Diagnosis Pelvic pain Irregular bleeding Irregular menstrual cycle Preop testing Unspecified pre-operative examination Fall, initial encounter- Primary Pelvic pain Irregular bleeding Irregular menstrual cycle Preop testing Unspecified pre-operative examination documented in this encounter [facility] [place] Work Phone: Evaluation note* Diagnosis Pelvic pain Irregular bleeding Irregular menstrual cycle Preop testing Unspecified pre-operative examination Preop testing Unspecified pre-operative examination Tachycardia Unspecified tachycardia Pelvic pain Irregular bleeding Irregular menstrual cycle Preop testing Unspecified pre-operative examination documented in this encounter [facility] [place] Work Phone: Evaluation note* Diagnosis Pelvic pain Irregular bleeding Irregular menstrual cycle Preop testing Unspecified pre-operative examination Preop testing Unspecified pre-operative examination Tachycardia Unspecified tachycardia Preop testing Unspecified pre-operative examination Tachycardia Unspecified tachycardia Preop testing Unspecified pre-operative examination Tachycardia Unspecified tachycardia Pelvic pain Irregular bleeding Irregular menstrual cycle Preop testing Unspecified pre-operative examination documented in this encounter [facility] [place] Work Phone: Evaluation note* Diagnosis Pelvic pain Irregular bleeding Irregular menstrual cycle Preop testing Unspecified pre-operative examination Preop testing Unspecified pre-operative examination Tachycardia Unspecified tachycardia Preop testing Unspecified pre-operative examination Tachycardia Unspecified tachycardia Preop testing Unspecified pre-operative examination Tachycardia Unspecified tachycardia Pelvic pain Irregular bleeding Irregular menstrual cycle Preop testing Unspecified pre-operative examination documented in this encounter [facility] [place] Work Phone: [phone] note* Diagnosis Chronic midline low back pain without sciatica- Primary Frequent falls Tremor Abnormal involuntary movements [facility]* Diagnosis Chronic midline low back pain without sciatica- Primary Frequent falls Tremor Abnormal involuntary movements [facility]* Diagnosis Endometriosis- Primary Endometriosis, site unspecified documented in this encounter [facility] [place] Work Phone: Evaluation note* Diagnosis Contusion of back, unspecified laterality, initial encounter- Primary Fall, initial encounter documented in this encounter [facility] Work Phone: [phone] note* Diagnosis Chest pain- Primary Unspecified chest pain Chest pain, unspecified type [facility] Diagnosis Chronic right shoulder pain- Primary Pain in joint, shoulder region documented in this [facility]* Diagnosis Encounter to establish care- Primary Reserved for inherently not codable concepts WITHOUT codable children documented [facility]* Diagnosis Psoriasis- Primary Other psoriasis Frequent falls Tremor Abnormal involuntary movements Impaired mobility Other ill-defined conditions documented in this encounter [facility]* Diagnosis Anxiety Anxiety state, unspecified Chronic systolic (congestive) heart failure (CMS/HCC) Depression, major, single episode, severe (CMS/HCC) Seizure-like activity (CMS/HCC) Sedative, hypnotic or anxiolytic dependence with withdrawal, unspecified ([facility]) documented in this encounter [facility] Work Phone: Evaluation note* Diagnosis Morbid obesity with BMI of 40.0-44.9, adult (Multi)- Primary Endometriosis Endometriosis, site unspecified Thrombocytopenia (CMS-[facility]) Unspecified thrombocytopenia Chronic systolic (congestive) heart failure (Multi) documented in this encounter [facility] Work Phone: Evaluation note* Diagnosis Seborrheic dermatitis Unspecified seborrheic dermatitis documented in this encounter [facility]* Diagnosis Acute appendicitis- Primary Acute appendicitis without mention of peritonitis Acute appendicitis, unspecified acute appendicitis type Thrombocytopenia (HCC) Unspecified thrombocytopenia Elevated serum creatinine Other nonspecific findings on examination of blood History of epilepsy Unspecified epilepsy without mention of intractable epilepsy Constipation, unspecified constipation type S/P laparoscopic appendectomy Other postprocedural status [facility]* Diagnosis S/P laparoscopic appendectomy- Primary Other postprocedural status documented [facility]* Diagnosis 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) documented in this encounter [facility]* Diagnosis 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)- Primary Tremor Abnormal involuntary movements Frequent falls documented in this encounter [facility]* Diagnosis Seborrheic dermatitis Unspecified seborrheic dermatitis documented in this encounter [facility]* Diagnosis Well woman exam (no gynecological exam)- Primary Routine general medical examination at a health care facility Screening mammogram for breast cancer documented in this encounter [facility] Work Phone: Evaluation note* Diagnosis Encounter for screening mammogram for breast cancer documented in this encounter [facility] Work Phone: Evaluation note* Diagnosis COVID-19- Primary Cough in adult Chest congestion Other symptoms involving respiratory system and chest Otalgia of both ears Acute cystitis with hematuria documented in this encounter [facility] Work Phone: Evaluation note* Diagnosis Focal epilepsy with impairment of consciousness, intractable (HCC)- Primary Localization-related (focal) (partial) epilepsy and epileptic syndromes with simple partial seizures, with intractable epilepsy documented in this encounter [facility]* Diagnosis 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)- Primary Focal epilepsy with impairment of consciousness, intractable (HCC) Localization-related (focal) (partial) epilepsy and epileptic syndromes with simple partial seizures, with intractable epilepsy Tremor Abnormal involuntary movements Dizziness Dizziness and giddiness documented in this encounter [facility]* Diagnosis Postop check- Primary Follow-up examination, following unspecified surgery documented in this encounter [facility] Work Phone: Evaluation note* Diagnosis Focal epilepsy with impairment of consciousness, intractable (HCC)- Primary Localization-related (focal) (partial) epilepsy and epileptic syndromes with simple partial seizures, with intractable epilepsy 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) documented in this encounter [facility]uation note* Diagnosis Seizure disorder (CMS/HCC) (HCC)- Primary Unspecified epilepsy without mention of intractable epilepsy Seizure disorder (CMS/HCC) (HCC) Unspecified epilepsy without mention of intractable epilepsy documented in this encounter [facility]akaboosEvaluation noteNo assessment information availableWDoctors Hospital Work Phone: History of Present illness Narrative* HERE FOR F/U AFTER D/ FORM [facility] * HOSPITAL BED , HAS AN UNSTEADY GAIT, USES WC A LOT * FACE TO FACE FOR HOME CARE * PT FOR GAIT [facility] Internal Medicine Work Phone: History of Present illness Narrative* HERE FOR MED REFILL * HAD ABNORMAL VAGINAL DISCHRAGE * HAD LOWER ABDOMINAL PAIN AND BACK PAIN ON THE WEEKEND WHICH RESOLVED, LASTED FOR SHORT PEROID OF TIME FEELS FINE NOW [facility] Internal Medicine Work Phone: History of Present illness Narrative* F/U AFTER BW * HAS BEEN MORE ANXIOUS IN AM WANTS LORAZEPAM RAISED [facility] Internal [facility] Work Phone: History of Present illness Narrative* F/U AFTER BW * HAS BEEN MORE ANXIOUS IN AM WANTS LORAZEPAM RAISED [facility] Work Phone: History of Present illness Narrative* f/u after labs * HAD 3 FALLS , LOST HER BALANCE AND FELL * ONE TIME WHEN IN BATHROOM HIT HER BACK AND GOT A SMALL BRUISE, NO SZ [facility] Work Phone: History of Present illness Narrative* f/u after labs * HAD 3 FALLS , LOST HER BALANCE AND FELL * ONE TIME WHEN IN BATHROOM HIT HER BACK AND GOT A SMALL BRUISE, NO SZ [facility] Work Phone: History of Present illness Narrative* MED REFILL * C/O TREMOR * HAS DIOMEDES. WITH NEURO NEXT MO [facility] Work Phone: History of Present illness Narrative* MED REFILL * C/O TREMOR * HAS DIOMEDES. WITH NEURO NEXT MO [facility] Work Phone: History of Present illness Narrative* PT C/O EPIGASTRIC AND RUQ PAIN * FOR 3 DAYS * SEVERITY: SEVERE * CHARACTERISTIC: ACUTE * EXACERBATION FACTOR: MOVEMENTS * RELIEVING FACTOR: REST * ASSOCIATED SYMPTOMS: LBP, NAUSEA AND VOMITING * PRIOR TX:BIOFREEZE, TYLENOL [facility] Work Phone: History of Present illness Narrative* PT C/O EPIGASTRIC AND RUQ PAIN * FOR 3 DAYS * SEVERITY: SEVERE * CHARACTERISTIC: ACUTE * EXACERBATION FACTOR: MOVEMENTS * RELIEVING FACTOR: REST * ASSOCIATED SYMPTOMS: LBP, NAUSEA AND VOMITING * PRIOR TX:BIOFREEZE, TYLENOL [facility] Work Phone: History of Present illness Narrative* HERE FOR F/U STILL HAS RUQ PAIN * HAS BEEN MORE ANXIOUS [facility] Work Phone: History of Present illness Narrative* HERE FOR F/U , NO LABS DONE * RIGHT KNEE PAIN * C/O OFF And on nausea and vomiting [facility] Work Phone: History of Present illness Narrative* HERE FOR F/U , NO LABS DONE * RIGHT KNEE PAIN * C/O OFF And on nausea and vomiting [facility] Internal Medicine Work Phone: History of Present illness NarrativeHERE FOR MED REFILLSt. [facility] Work Phone: History of Present illness Narrative* HERE FOR MED REFILL * C/O RIGHT KNEE PAIN * WHITE SPOTS ON THE RIGHT LEG * STILL HAS LOTS OF SHAKING WOULD LIKE INCREASE IN LORAZEM WHICH HELPS A LOT [facility] Internal Medicine Work Phone: History of Present illness Narrative* HERE FOR MED REFILL * C/O B/L EAR ACHE * C/O RASH ON THE RIGHT ARM PIT WITH SOME ITCH [facility] Work Phone: History of Present illness NarrativeAgree with CC as documented per GREG. Patient is a pleasant 36-year-old female accompanied by member from the assisted living facility for evaluation of bilateral knee pain. This is Been going on for months with no injuries. Patient states she has some constant pain and has frequent falls. Pain does get to severe and up to 8 out of 10 at times. She also describes it as aching and popping. Patient states she did try a pain cream from her PCP that did not help. She has not attempted any wraps, bracing. Patient has participated in PT for her gait in the past, however its been DC'd. she notices pain is worse with changing in position, prolonged sitting or prolonged standing. Patient did use some pain medication in the wong past, she was unsure of the name of it and currently is not taking any pr escription medicines for pain control. She does use Tylenol on a as needed basis and helps for veryshort-term intervals. Patient is mostly wheelchair-bound and can ambulate approximately 10 feet with a walker to the restroom several times daily and this is when most of the falls occur.[facility] [address] Work Phone: History of Present illness Narrative* HERE FOR MED REFILL * C/O BACK PAIN * C/O B/L KNEE PAIN, HER VOLTAREN GEL WAS EFFECTIVE BUT STOPPED [facility] Work Phone: History of Present illness Narrative* HERE FOR MED REFILL * WANTS TO SEE CARDIO FOR OFF AND ON PALPITATIONS * WANTS TO SEE DEVELOPMENT ASSISTANT FOR OFF AND ON RASH [facility] Work Phone: History of Present illness Narrative* PT C/O SINUS CONGESTION DRAINAGE AND PRESSURE, PRODUCTIVE COUGH * FOR COUPLE OF WEEKS * SEVERITY:MODERATE * CHARACTERISTIC: ACUTE * EXACERBATION FACTOR: NONE * RELIEVING FACTOR: NONE * ASSOCIATED SYMPTOMS: NAUSEA AND VOMITING DUE TO DRAINAGE, NO FEVER NO CHILLS, NO SOB * PRIOR TX: COUGH SYRP, TYLENOL [facility] Work Phone: History of Present illness Narrative* Reema Shah is a 47-year-old female with a h/o anxiety, obesity, depression, epilepsy, GERD, hypercholesterolemia, HTN, and falls presenting for review of previous testing. * Cardiac hx includes: * 1. Vasovagal episodes * -Echo displayed a normal EF of 60% and a pseudonormal pattern of left ventricular diastolic filling * -A 3-day monitor was ordered to rule out any underlying arrhythmias which was normal with no abnormal rhythms detected. * -Patient reports occasional episodes of dizziness with changing positions. BP not currently checkedat the [facility] and patient hypotensive in the office. * In further conversation, patient reports a history of acute renal failure approximately 22 years ago and requesting to see a cuff maker to establish care. She also is not happy with her current Neurologist in [place] and would like a referral placed to Dr. Valentina Chopra (previous Neurologist) to better manage her seizure medications. * Patient denies any chest pain/pressure/discomfort or SOB. She does report occasional swelling in her lower extremities and she reports elevating her feet when she is back in her apartment. [facility] [address] Work Phone: History of Present illness Narrative* Reema Shah is a 47-year-old female with a h/o anxiety, obesity, depression, epilepsy, GERD, hypercholesterolemia, HTN, and falls presenting for review of previous testing. * Cardiac hx includes: * 1. Vasovagal episodes * -Echo displayed a normal EF of 60% and a pseudonormal pattern of left ventricular diastolic filling * -A 3-day monitor was ordered to rule out any underlying arrhythmias which was normal with no abnormal rhythms detected. * -Patient reports occasional episodes of dizziness with changing positions. BP not currently checkedat the [facility] and patient hypotensive in the office. * In further conversation, patient reports a history of acute renal failure approximately 22 years ago and requesting to see a cuff maker to establish care. She also is not happy with her current Neurologist in [place] and would like a referral placed to Dr. Valentina Chopra (previous Neurologist) to better manage her seizure medications. * Patient denies any chest pain/pressure/discomfort or SOB. She does report occasional swelling in her lower extremities and she reports elevating her feet when she is back in her apartment. [facility] Work Phone: History of Present illness Narrative* Reema Shah is a 47-year-old female with a h/o anxiety, obesity, depression, epilepsy, GERD, hypercholesterolemia, HTN, and falls presenting for review of previous testing. * Cardiac hx includes: * 1. Vasovagal episodes * -Echo displayed a normal EF of 60% and a pseudonormal pattern of left ventricular diastolic filling * -A 3-day monitor was ordered to rule out any underlying arrhythmias which was normal with no abnormal rhythms detected. * -Patient reports occasional episodes of dizziness with changing positions. BP not currently checkedat the [facility] and patient hypotensive in the office. * In further conversation, patient reports a history of acute renal failure approximately 22 years ago and requesting to see a cuff maker to establish care. She also is not happy with her current Neurologist in [place] and would like a referral placed to Dr. Valentina Chopra (previous Neurologist) to better manage her seizure medications. * Patient denies any chest pain/pressure/discomfort or SOB. She does report occasional swelling in her lower extremities and she reports elevating her feet when she is back in her apartment. [facility] Work Phone: History of Present illness Narrative* Reema Shah, a 47 year old female, arrives to outpatient PT c/o R knee pain and gait/balance deficits. Pt presents with the following impairments: B knee pain R>L, deficits in R knee AROM, deficits in gait biomechanics, deficits in SLS, deficits in functional strength/stability per 5xSTS, and deficits in subjective balance per ABC scale score. These impairments contribute to difficulty inactivity limitations and participation restrictions including ambulation, transfers, sleeping, and self care. The pt will benefit from skilled PT services 2x/week for 4 weeks to address the above stated impairments and functional limitations to maximize participation and ease in household and social activities. The pt has a fair prognosis when considering positive factors including age with barriers such as PLOF and current medical comorbidities influencing strength/stability. Patient would benefit from aquatic based setting d/t pain of knees and to encourage participation. Educated on POC and HEP with seated exercises for hip strengthening. Handout provided. Pain same pre- and post-treatment. The pt verbalized understanding and agreement to goals and POC. Thank you for this referral and please call [phone] with any questions or concerns. * Clinical Presentation: Stable and/or uncomplicated characteristics. * Level of Complexity: low * Problem List: activity limitations, ADLs/IADLs/self care skills, decreased knowledge of HEP, flexibility, gait/locomotion, pain, participation restrictions, range of motion/joint mobility and strength. [facility] Work Phone: History of Present illness Narrative* Reema Shah is a 47-year-old female with a h/o anxiety, obesity, depression, epilepsy, GERD, hypercholesterolemia, HTN, and falls presenting for review of previous testing. * Cardiac hx includes: * 1. Vasovagal episodes * -Echo displayed a normal EF of 60% and a pseudonormal pattern of left ventricular diastolic filling * -A 3-day monitor was ordered to rule out any underlying arrhythmias which was normal with no abnormal rhythms detected. * -Patient reports occasional episodes of dizziness with changing positions. BP not currently checkedat the [facility] and patient hypotensive in the office. * In further conversation, patient reports a history of acute renal failure approximately 22 years ago and requesting to see a cuff maker to establish care. She also is not happy with her current Neurologist in [place] and would like a referral placed to Dr. Valentina Chopra (previous Neurologist) to better manage her seizure medications. * Patient denies any chest pain/pressure/discomfort or SOB. She does report occasional swelling in her lower extremities and she reports elevating her feet when she is back in her apartment. [facility] Work Phone: History of Present illness NarrativePatient tolerated treatment without increased pain. Patient has weak TrA and keeps intact with ther-ex. Patient needing one UE support at all times, except for free hanging. Patient needing verbal/demo/tactile cues for UE paddles for form. Patient reports feel free in the water. PATIENT NEEDING CHAIR LIFT to enter/exit pool. Patient needing Min A x 1 when transferring from pool chair to wheelchair due to height difference. Continue with ambulation/strength to improve ambulation, to decrease fall risk and improve balance. [facility] Work Phone: History of Present illness NarrativePatient tolerated treatment without increased pain. Patient has weak TrA and keeps intact with ther-ex. Patient needing one UE support at all times, except for free hanging. Patient needing verbal/demo/tactile cues for UE paddles for form. Patient reports feel free in the water. PATIENT NEEDING CHAIR LIFT to enter/exit pool. Patient needing Min A x 1 when transferring from pool chair to wheelchair due to height difference. Continue with ambulation/strength to improve ambulation, to decrease fall risk and improve balance.[facility] Work Phone: History of Present illness NarrativePatient tolerated treatment without pain. Patient needing to use lift chair to enter/exit pool. Needing assist to get off of chair due to short stature. Patient needing one noodle to ambulate across pool for balance. Needing one UE support with LE ther- ex and one noodle for 100% unloading. Added standing hamcurls and canacn to program with good tolerance. Continue with LE strength/ROM and ambulation to increase strength, improve balance/ambulation to decrease fall risk.[facility] Work Phone: History of Present illness NarrativePatient tolerated treatment without increased pain. Patient needing to use pool chair to enter/exitpool. Would like to attempt steps, but, this therapist does not feel comfortable taking her up/downsteps. Patient needing one noodle to ambulate across pool and one UE support to perform LE ther-ex.Patient needing SBA at all times due to full body tremors. Patient able to perform UE ther-ex whileleaning against pool wall. Continue with B UE/LE ther-ex to improve balance, ambulation to decreasefall risk and improve ambulation. [facility] Work Phone: History of Present illness Narrative* Agree with CC as noted, Elle is a pleasant 47-year-old female arrived in wheelchair from [facility] for follow-up of right knee pain. Aquatherapy helped with sx control, states she is no longer being scheduled. [facility] arrange transportation. States PT recommended OT, not clear for what- thinks for upper body strengthening. * Takes prn Tylenol with no sx improvement. States no IcyHot provided at facility, no BioFreeze beingused with short-term symptom relief. [facility] [address] Work Phone: History of Present illness Narrative* Reema Shah is progressing well through their POC addressing knee pain and gait deficits. The pt demonstrates and verbalizes improvements in R knee pain, B hip and R knee musculature strength, and gait biomechanics. This contributes to greater ease with transfers and ambulation however pt is still experiencing difficulty with R knee pain and gait deficits.Patient has attended 5 therapy sessions including initial evaluation with focus of aquatic therapy. She is partially meeting or met all current therapy goals. Largest barrier to treatment has been because of illness as well as transportation concerns. However, given missed appointments, patient has demonstrated improvement in gait/mobility and overall baseline knee pain. * The pt will benefit from continued skilled PT services 2x/week for 4 weeks to address the above stated impairments and functional limitations to maximize participation and ease in household and social related activities. Plan to focus on aquatic therapy to offload R knee as well as to promote B LE strength and stability for increase ease of transfers and ambulation. Patient provided information regarding RW height with resources provided to seek out DME that may better suit her height. 4/10 pain at end of session. Pt verbalized understanding and agreement to goals and POC. Thank you for this referral and please call [phone] with any questions or concerns. [facility] Work Phone: History of Present illness NarrativePatient tolerated treatment without increased pain. Patient has weak TrA and attempts to keep intact. Patient needing one noodle to ambulate across pool with ENTERPRISE INTEGRATION DEVELOPER. Patient needing one UE support with SBA to perform LE ther-ex. Patient needing B UE support with 100% unloading. Patient uses pool chairto enter/exit pool. Patient has full body tremors. Continue with LE strength/gait to improve ambulation, standing to decrease fall risk. [facility] Work Phone: History of Present illness NarrativePatient tolerated treatment without increased pain. Patient enter/exits pool using pool chair. Patient needing one noodle with ENTERPRISE INTEGRATION DEVELOPER to ambulate from pool chair across pool for ambulation. Patient ableto perform B LE ther-ex with one UE support and B UE support with 100% unloading. Patient leans against pool wall when performing UE theer-ex for balance control. Continue with gait/mobility to decrease falls and improve mobility. [facility] Work Phone: History of Present illness NarrativePatient tolerated treatment without increased pain. Patient has weak TrA and keeps intact with ther-ex. Patient needing ENTERPRISE INTEGRATION DEVELOPER with noodle to ambulate across pool. Needing one UE support with LE ther-exand B UE support with 100% unloading. Patient with improved balance/coordination with ambulation and ther-ex. Patient with decreased full body tremors today in pool. Continue with gait/mobility to dec rease fall risk. [facility] Work Phone: History of Present illness NarrativePatient tolerated treatment without increased pain. Patient has Fair TrA and keeps intact with ther-ex. Patient uses pool chair to enter/exit pool. Patient needing one noddle and ENTERPRISE INTEGRATION DEVELOPER to ambulate across pool. Patient needing one UE support with LE ther-ex and with 100% unloading. Patient has good form/understanding with ther-ex. Patient has full body tremors and needing to stand still until tremors pass. Continue with gait/mobility to decrease fall risk and improve mobility.[facility] Work Phone: History of Present illness NarrativePatient tolerated treatment without pain. Patient has Fair TrA and keeps intact with ther-ex. Patient needing to use pool chair to enter/exit pool. Patient needing one noodle and ENTERPRISE INTEGRATION DEVELOPER to ambulate across pool. Patient needing to lean against pool wall to perform UE ther-ex. Patient with full body tremors in water. Had patient stand still, therapist added pressure to shoulders and tremors would disapate. Continue with gait/mobility, standing to improve ambulation to decrease falls. [facility] Work Phone: History of Present illness NarrativePatient tolerated treatment without increased pain. Patient has weak TrA and keeps intact with ther-ex. Patient needing use of pool chair to enter/exit pool.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 Status:Active Mother Name Dates Details Family history of diabetes [place](V18.0, Z83.3) Status:Active Family history of cardiac di sorder(V17.49, Z82.49) Status:Active Family history of hypertensi on(V17.49, Z82.49) Status:Active Father Name Dates Details Family history of hypothyroi dism(V18.19, Z83.49) Status:Active Family history of Hypothyroi dism Status:Active Unknown Family Member Name Dates Details Family history of Reported F amily History Of Heart Disease Comments:Family History Status:Active Family history of Diabetes M eddi(V18.0) Comments:Family History Status:Active Family history of Chronic Ob structive Pulmonary Disease Comments:Family History Status:Active Family history of Hypothyroi dism Comments:Family History Status:Active Family history of Systemic L upus Erythematosus Comments:Family History Status:Active Family history of Epilepsy A nd Recurrent Seizures(V17.2) Comments:Family History Status:Active Mother Name Dates Details Family history of diabetes m erendiraitus(V18.0, Z83.3) Status:Active Family history of cardiac di sorder(V17.49, Z82.49) Status:Active Family history of hypertensi on(V17.49, Z82.49) Status:Active Father Name Dates Details Family history of hypothyroi dism(V18.19, Z83.49) Status:Active Family history of Hypothyroi dism Status:Active Unknown Family Member Name Dates Details Family history of Reported F amily History Of Heart Disease Comments:Family History Status:Active Family history of Diabetes M eddi(V18.0) Comments:Family History Status:Active Family history of Chronic Ob structive Pulmonary Disease Comments:Family History Status:Active Family history of Hypothyroi dism Comments:Family History Status:Active Family history of Systemic L upus Erythematosus Comments:Family History Status:Active Family history of Epilepsy A nd Recurrent Seizures(V17.2) Comments:Family History Status:Active Mother Name Dates Details Family history of diabetes m ellitus(V18.0, Z83.3) Status:Active Family history of cardiac di sorder(V17.49, Z82.49) Status:Active Family history of hypertensi on(V17.49, Z82.49) Status:Active Father Name Dates Details Family history of hypothyroi dism(V18.19, Z83.49) Status:Active Family history of Hypothyroi dism Status:Active Unknown Family Member Name Dates Details Family history of hypothyroi dism: Father(V18.19, Z83.49) Status:Active Family history of diabetes m ellitus: Mother(V18.0, Z83.3) Status:Active Family history of cardiac di sorder: Mother(V17.49, Z82.49) Status:Active Family history of hypertensi on: Mother(V17.49, Z82.49) Status:Active Reported Family History Of H eart Disease: Family History Status:Active Diabetes Mellitus: Family Hi story(V18.0) Comments:mother; Status:Active Chronic Obstructive Pulmonar y Disease: Family History Status:Active Hypothyroidism: Family Histo ry Status:Active Hypothyroidism: Father Status:Active Systemic Lupus Erythematosus : Family History Status:Active Epilepsy And Recurrent Seizu res: Family History(V17.2) Comments:Sister has absence seizures and GTC seizures; Status:Active Unknown Family Member Name Dates Details Family history of hypothyroi dism: Father(V18.19, Z83.49) Status:Active Family history of diabetes m ellitus: Mother(V18.0, Z83.3) Status:Active Family history of cardiac di sorder: Mother(V17.49, Z82.49) Status:Active Family history of hypertensi on: Mother(V17.49, Z82.49) Status:Active Reported Family History Of H eart Disease: Family History Status:Active Diabetes Mellitus: Family Hi story(V18.0) Comments:mother; Status:Active Chronic Obstructive Pulmonar y Disease: Family History Status:Active Hypothyroidism: Family Histo ry Status:Active Hypothyroidism: Father Status:Active Systemic Lupus Erythematosus : Family History Status:Active Epilepsy And Recurrent Seizu res: Family History(V17.2) Comments:Sister has absence seizures and GTC seizures; Status:Active Unknown Family Member Name Dates Details Family history of hypothyroi dism: Father(V18.19, Z83.49) Status:Active Family history of diabetes m ellitus: Mother(V18.0, Z83.3) Status:Active Family history of cardiac di sorder: Mother(V17.49, Z82.49) Status:Active Family history of hypertensi on: Mother(V17.49, Z82.49) Status:Active Reported Family History Of H eart Disease: Family History Status:Active Diabetes Mellitus: Family Hi story(V18.0) Comments:mother; Status:Active Chronic Obstructive Pulmonar y Disease: Family History Status:Active Hypothyroidism: Family Histo ry Status:Active Hypothyroidism: Father Status:Active Systemic Lupus Erythematosus : Family History Status:Active Epilepsy And Recurrent Seizu res: Family History(V17.2) Comments:Sister has absence seizures and GTC seizures; Status:Active Unknown Family Member Name Dates Details Family history of hypothyroi dism: Father(V18.19, Z83.49) Status:Active Family history of diabetes m ellitus: Mother(V18.0, Z83.3) Status:Active Family history of cardiac di sorder: Mother(V17.49, Z82.49) Status:Active Family history of hypertensi on: Mother(V17.49, Z82.49) Status:Active Reported Family History Of H eart Disease: Family History Status:Active Diabetes Mellitus: Family Hi story(V18.0) Comments:mother; Status:Active Chronic Obstructive Pulmonar y Disease: Family History Status:Active Hypothyroidism: Family Histo ry Status:Active Hypothyroidism: Father Status:Active Systemic Lupus Erythematosus : Family History Status:Active Epilepsy And Recurrent Seizu res: Family History(V17.2) Comments:Sister has absence seizures and GTC seizures; Status:Active Unknown Family Member Name Dates Details Family history of hypothyroi dism: Father(V18.19, Z83.49) Status:Active Family history of diabetes m ellitus: Mother(V18.0, Z83.3) Status:Active Family history of cardiac di sorder: Mother(V17.49, Z82.49) Status:Active Family history of hypertensi on: Mother(V17.49, Z82.49) Status:Active Reported Family History Of H eart Disease: Family History Status:Active Diabetes Mellitus: Family Hi story(V18.0) Comments:mother; Status:Active Chronic Obstructive Pulmonar y Disease: Family History Status:Active Hypothyroidism: Family Histo ry Status:Active Hypothyroidism: Father Status:Active Systemic Lupus Erythematosus : Family History Status:Active Epilepsy And Recurrent Seizu res: Family History(V17.2) Comments:Sister has absence seizures and GTC seizures; Status:Active Unknown Family Member Name Dates Details Family history of hypothyroi dism: Father(V18.19, Z83.49) Status:Active Family history of diabetes m ellitus: Mother(V18.0, Z83.3) Status:Active Family history of cardiac di sorder: Mother(V17.49, Z82.49) Status:Active Family history of hypertensi on: Mother(V17.49, Z82.49) Status:Active Reported Family History Of H eart Disease: Family History Status:Active Diabetes Mellitus: Family Hi story(V18.0) Comments:mother; Status:Active Chronic Obstructive Pulmonar y Disease: Family History Status:Active Hypothyroidism: Family Histo ry Status:Active Hypothyroidism: Father Status:Active Systemic Lupus Erythematosus : Family History Status:Active Epilepsy And Recurrent Seizu res: Family History(V17.2) Comments:Sister has absence seizures and GTC seizures; Status:Active Unknown Family Member Name Dates Details Family history of hypothyroi dism: Father(V18.19, Z83.49) Status:Active Family history of diabetes m ellitus: Mother(V18.0, Z83.3) Status:Active Family history of cardiac di sorder: Mother(V17.49, Z82.49) Status:Active Family history of hypertensi on: Mother(V17.49, Z82.49) Status:Active Reported Family History Of H eart Disease: Family History Status:Active Diabetes Mellitus: Family Hi story(V18.0) Comments:mother; Status:Active Chronic Obstructive Pulmonar y Disease: Family History Status:Active Hypothyroidism: Family Histo ry Status:Active Hypothyroidism: Father Status:Active Systemic Lupus Erythematosus : Family History Status:Active Epilepsy And Recurrent Seizu res: Family History(V17.2) Comments:Sister has absence seizures and GTC seizures; Status:Active Unknown Family Member Name Dates Details Family history of hypothyroi dism: Father(V18.19, Z83.49) Status:Active Family history of diabetes m ellitus: Mother(V18.0, Z83.3) Status:Active Family history of cardiac di sorder: Mother(V17.49, Z82.49) Status:Active Family history of hypertensi on: Mother(V17.49, Z82.49) Status:Active Reported Family History Of H eart Disease: Family History Status:Active Diabetes Mellitus: Family Hi story(V18.0) Comments:mother; Status:Active Chronic Obstructive Pulmonar y Disease: Family History Status:Active Hypothyroidism: Family Histo ry Status:Active Hypothyroidism: Father Status:Active Systemic Lupus Erythematosus : Family History Status:Active Epilepsy And Recurrent Seizu res: Family History(V17.2) Comments:Sister has absence seizures and GTC seizures; Status:Active Unknown Family Member Name Dates Details Family history of hypothyroi dism: Father(V18.19, Z83.49) Status:Active Family history of diabetes m ellitus: Mother(V18.0, Z83.3) Status:Active Family history of cardiac di sorder: Mother(V17.49, Z82.49) Status:Active Family history of hypertensi on: Mother(V17.49, Z82.49) Status:Active Reported Family History Of H eart Disease: Family History Status:Active Diabetes Mellitus: Family Hi story(V18.0) Comments:mother; Status:Active Chronic Obstructive Pulmonar y Disease: Family History Status:Active Hypothyroidism: Family Histo ry Status:Active Hypothyroidism: Father Status:Active Systemic Lupus Erythematosus : Family History Status:Active Epilepsy And Recurrent Seizu res: Family History(V17.2) Comments:Sister has absence seizures and GTC seizures; Status:Active Unknown Family Member Name Dates Details Family history of hypothyroi dism: Father(V18.19, Z83.49) Status:Active Family history of diabetes m ellitus: Mother(V18.0, Z83.3) Status:Active Family history of cardiac di sorder: Mother(V17.49, Z82.49) Status:Active Family history of hypertensi on: Mother(V17.49, Z82.49) Status:Active Reported Family History Of H eart Disease: Family History Status:Active Diabetes Mellitus: Family Hi story(V18.0) Comments:mother; Status:Active Chronic Obstructive Pulmonar y Disease: Family History Status:Active Hypothyroidism: Family Histo ry Status:Active Hypothyroidism: Father Status:Active Systemic Lupus Erythematosus : Family History Status:Active Epilepsy And Recurrent Seizu res: Family History(V17.2) Comments:Sister has absence seizures and GTC seizures; Status:Active Unknown Family Member Name Dates Details Family history of hypothyroi dism: Father(V18.19, Z83.49) Status:Active Family history of diabetes m ellitus: Mother(V18.0, Z83.3) Status:Active Family history of cardiac di sorder: Mother(V17.49, Z82.49) Status:Active Family history of hypertensi on: Mother(V17.49, Z82.49) Status:Active Reported Family History Of H eart Disease: Family History Status:Active Diabetes Mellitus: Family Hi story(V18.0) Comments:mother; Status:Active Chronic Obstructive Pulmonar y Disease: Family History Status:Active Hypothyroidism: Family Histo ry Status:Active Hypothyroidism: Father Status:Active Systemic Lupus Erythematosus : Family History Status:Active Epilepsy And Recurrent Seizu res: Family History(V17.2) Comments:Sister has absence seizures and GTC seizures; Status:Active Unknown Family Member Name Dates Details Family history of hypothyroi dism: Father(V18.19, Z83.49) Status:Active Family history of diabetes m ellitus: Mother(V18.0, Z83.3) Status:Active Family history of cardiac di sorder: Mother(V17.49, Z82.49) Status:Active Family history of hypertensi on: Mother(V17.49, Z82.49) Status:Active Reported Family History Of H eart Disease: Family History Status:Active Diabetes Mellitus: Family Hi story(V18.0) Comments:mother; Status:Active Chronic Obstructive Pulmonar y Disease: Family History Status:Active Hypothyroidism: Family Histo ry Status:Active Hypothyroidism: Father Status:Active Systemic Lupus Erythematosus : Family History Status:Active Epilepsy And Recurrent Seizu res: Family History(V17.2) Comments:Sister has absence seizures and GTC seizures; Status:Active Unknown Family Member Name Dates Details Family history of hypothyroi dism: Father(V18.19, Z83.49) Status:Active Family history of diabetes m ellitus: Mother(V18.0, Z83.3) Status:Active Family history of cardiac di sorder: Mother(V17.49, Z82.49) Status:Active Family history of hypertensi on: Mother(V17.49, Z82.49) Status:Active Reported Family History Of H eart Disease: Family History Status:Active Diabetes Mellitus: Family Hi story(V18.0) Comments:mother; Status:Active Chronic Obstructive Pulmonar y Disease: Family History Status:Active Hypothyroidism: Family Histo ry Status:Active Hypothyroidism: Father Status:Active Systemic Lupus Erythematosus : Family History Status:Active Epilepsy And Recurrent Seizu res: Family History(V17.2) Comments:Sister has absence seizures and GTC seizures; Status:Active Unknown Family Member Name Dates Details Epilepsy And Recurrent Seizu res: Family History(V17.2) Comments:Sister has absence seizures and GTC seizures; Status:Active Systemic Lupus Erythematosus : Family History Status:Active Hypothyroidism: Father Status:Active Hypothyroidism: Family Histo ry Status:Active Chronic Obstructive Pulmonar y Disease: Family History Status:Active Diabetes Mellitus: Family Hi story(V18.0) Comments:mother; Status:Active Reported Family History Of H eart Disease: Family History Status:Active Family history of hypertensi on: Mother(V17.49, Z82.49) Status:Active Family history of cardiac di sorder: Mother(V17.49, Z82.49) Status:Active Family history of diabetes m ellitus: Mother(V18.0, Z83.3) Status:Active Family history of hypothyroi dism: Father(V18.19, Z83.49) Status:Active Unknown Family Member Name Dates Details Family history of hypertensi on: Mother(V17.49, Z82.49) Status:Active Family history of cardiac di sorder: Mother(V17.49, Z82.49) Status:Active Family history of diabetes m ellitus: Mother(V18.0, Z83.3) Status:Active Family history of hypothyroi dism: Father(V18.19, Z83.49) Status:Active Epilepsy And Recurrent Seizu res: Family History(V17.2) Comments:Sister has absence seizures and GTC seizures; Status:Active Systemic Lupus Erythematosus : Family History Status:Active Hypothyroidism: Father Status:Active Hypothyroidism: Family Histo ry Status:Active Chronic Obstructive Pulmonar y Disease: Family History Status:Active Diabetes Mellitus: Family Hi story(V18.0) Comments:mother; Status:Active Reported Family History Of H eart Disease: Family History Status:Active Unknown Family Member Name Dates Details Family history of hypothyroi dism: Father(V18.19, Z83.49) Status:Active Family history of diabetes m ellitus: Mother(V18.0, Z83.3) Status:Active Family history of cardiac di sorder: Mother(V17.49, Z82.49) Status:Active Family history of hypertensi on: Mother(V17.49, Z82.49) Status:Active Reported Family History Of H eart Disease: Family History Status:Active Diabetes Mellitus: Family Hi story(V18.0) Comments:mother; Status:Active Chronic Obstructive Pulmonar y Disease: Family History Status:Active Hypothyroidism: Family Histo ry Status:Active Hypothyroidism: Father Status:Active Systemic Lupus Erythematosus : Family History Status:Active Epilepsy And Recurrent Seizu res: Family History(V17.2) Comments:Sister has absence seizures and GTC seizures; Status:Active Unknown Family Member Name Dates Details Family history of hypothyroi dism: Father(V18.19, Z83.49) Status:Active Family history of diabetes m ellitus: Mother(V18.0, Z83.3) Status:Active Family history of cardiac di sorder: Mother(V17.49, Z82.49) Status:Active Family history of hypertensi on: Mother(V17.49, Z82.49) Status:Active Reported Family History Of H eart Disease: Family History Status:Active Diabetes Mellitus: Family Hi story(V18.0) Comments:mother; Status:Active Chronic Obstructive Pulmonar y Disease: Family History Status:Active Hypothyroidism: Family Histo ry Status:Active Hypothyroidism: Father Status:Active Systemic Lupus Erythematosus : Family History Status:Active Epilepsy And Recurrent Seizu res: Family History(V17.2) Comments:Sister has absence seizures and GTC seizures; Status:Active Unknown Family Member Name Dates Details Family history of hypothyroi dism: Father(V18.19, Z83.49) Status:Active Family history of diabetes m ellitus: Mother(V18.0, Z83.3) Status:Active Family history of cardiac di sorder: Mother(V17.49, Z82.49) Status:Active Family history of hypertensi on: Mother(V17.49, Z82.49) Status:Active Reported Family History Of H eart Disease: Family History Status:Active Diabetes Mellitus: Family Hi story(V18.0) Comments:mother; Status:Active Chronic Obstructive Pulmonar y Disease: Family History Status:Active Hypothyroidism: Family Histo ry Status:Active Hypothyroidism: Father Status:Active Systemic Lupus Erythematosus : Family History Status:Active Epilepsy And Recurrent Seizu res: Family History(V17.2) Comments:Sister has absence seizures and GTC seizures; Status:Active Unknown Family Member Name Dates Details Epilepsy And Recurrent Seizu res: Family History(V17.2) Comments:Sister has absence seizures and GTC seizures; Status:Active Systemic Lupus Erythematosus : Family History Status:Active Hypothyroidism: Father Status:Active Hypothyroidism: Family Histo ry Status:Active Chronic Obstructive Pulmonar y Disease: Family History Status:Active Diabetes Mellitus: Family Hi story(V18.0) Comments:mother; Status:Active Reported Family History Of H eart Disease: Family History Status:Active Family history of hypertensi on: Mother(V17.49, Z82.49) Status:Active Family history of cardiac di sorder: Mother(V17.49, Z82.49) Status:Active Family history of diabetes m ellitus: Mother(V18.0, Z83.3) Status:Active Family history of hypothyroi dism: Father(V18.19, Z83.49) Status:Active Unknown Family Member Name Dates Details Family history of hypothyroi dism: Father(V18.19, Z83.49) Status:Active Family history of diabetes m ellitus: Mother(V18.0, Z83.3) Status:Active Family history of cardiac di sorder: Mother(V17.49, Z82.49) Status:Active Family history of hypertensi on: Mother(V17.49, Z82.49) Status:Active Reported Family History Of H eart Disease: Family History Status:Active Diabetes Mellitus: Family Hi story(V18.0) Comments:mother; Status:Active Chronic Obstructive Pulmonar y Disease: Family History Status:Active Hypothyroidism: Family Histo ry Status:Active Hypothyroidism: Father Status:Active Systemic Lupus Erythematosus : Family History Status:Active Epilepsy And Recurrent Seizu res: Family History(V17.2) Comments:Sister has absence seizures and GTC seizures; Status:Active Unknown Family Member Name Dates Details Family history of hypothyroi dism: Father(V18.19, Z83.49) Status:Active Family history of diabetes m ellitus: Mother(V18.0, Z83.3) Status:Active Family history of cardiac di sorder: Mother(V17.49, Z82.49) Status:Active Family history of hypertensi on: Mother(V17.49, Z82.49) Status:Active Reported Family History Of H eart Disease: Family History Status:Active Diabetes Mellitus: Family Hi story(V18.0) Comments:mother; Status:Active Chronic Obstructive Pulmonar y Disease: Family History Status:Active Hypothyroidism: Family Histo ry Status:Active Hypothyroidism: Father Status:Active Systemic Lupus Erythematosus : Family History Status:Active Epilepsy And Recurrent Seizu res: Family History(V17.2) Comments:Sister has absence seizures and GTC seizures; Status:Active Unknown Family Member Name Dates Details Family history of hypothyroi dism: Father(V18.19, Z83.49) Status:Active Family history of diabetes m ellitus: Mother(V18.0, Z83.3) Status:Active Family history of cardiac di sorder: Mother(V17.49, Z82.49) Status:Active Family history of hypertensi on: Mother(V17.49, Z82.49) Status:Active Reported Family History Of H eart Disease: Family History Status:Active Diabetes Mellitus: Family Hi story(V18.0) Comments:mother; Status:Active Chronic Obstructive Pulmonar y Disease: Family History Status:Active Hypothyroidism: Family Histo ry Status:Active Hypothyroidism: Father Status:Active Systemic Lupus Erythematosus : Family History Status:Active Epilepsy And Recurrent Seizu res: Family History(V17.2) Comments:Sister has absence seizures and GTC seizures; Status:Active Unknown Family Member Name Dates Details Family history of hypothyroi dism: Father(V18.19, Z83.49) Status:Active Family history of diabetes m ellitus: Mother(V18.0, Z83.3) Status:Active Family history of cardiac di sorder: Mother(V17.49, Z82.49) Status:Active Family history of hypertensi on: Mother(V17.49, Z82.49) Status:Active Reported Family History Of H eart Disease: Family History Status:Active Diabetes Mellitus: Family Hi story(V18.0) Comments:mother; Status:Active Chronic Obstructive Pulmonar y Disease: Family History Status:Active Hypothyroidism: Family Histo ry Status:Active Hypothyroidism: Father Status:Active Systemic Lupus Erythematosus : Family History Status:Active Epilepsy And Recurrent Seizu res: Family History(V17.2) Comments:Sister has absence seizures and GTC seizures; Status:Active Unknown Family Member Name Dates Details Family history of hypothyroi dism: Father(V18.19, Z83.49) Status:Active Family history of diabetes m ellitus: Mother(V18.0, Z83.3) Status:Active Family history of cardiac di sorder: Mother(V17.49, Z82.49) Status:Active Family history of hypertensi on: Mother(V17.49, Z82.49) Status:Active Reported Family History Of H eart Disease: Family History Status:Active Diabetes Mellitus: Family Hi story(V18.0) Comments:mother; Status:Active Chronic Obstructive Pulmonar y Disease: Family History Status:Active Hypothyroidism: Family Histo ry Status:Active Hypothyroidism: Father Status:Active Systemic Lupus Erythematosus : Family History Status:Active Epilepsy And Recurrent Seizu res: Family History(V17.2) Comments:Sister has absence seizures and GTC seizures; Status:Active Unknown Family Member Name Dates Details Family history of hypothyroi dism: Father(V18.19, Z83.49) Status:Active Family history of diabetes m ellitus: Mother(V18.0, Z83.3) Status:Active Family history of cardiac di sorder: Mother(V17.49, Z82.49) Status:Active Family history of hypertensi on: Mother(V17.49, Z82.49) Status:Active Reported Family History Of H eart Disease: Family History Status:Active Diabetes Mellitus: Family Hi story(V18.0) Comments:mother; Status:Active Chronic Obstructive Pulmonar y Disease: Family History Status:Active Hypothyroidism: Family Histo ry Status:Active Hypothyroidism: Father Status:Active Systemic Lupus Erythematosus : Family History Status:Active Epilepsy And Recurrent Seizu res: Family History(V17.2) Comments:Sister has absence seizures and GTC seizures; Status:Active Unknown Family Member Name Dates Details Family history of hypothyroi dism: Father(V18.19, Z83.49) Status:Active Family history of diabetes m ellitus: Mother(V18.0, Z83.3) Status:Active Family history of cardiac di sorder: Mother(V17.49, Z82.49) Status:Active Family history of hypertensi on: Mother(V17.49, Z82.49) Status:Active Reported Family History Of H eart Disease: Family History Status:Active Diabetes Mellitus: Family Hi story(V18.0) Comments:mother; Status:Active Chronic Obstructive Pulmonar y Disease: Family History Status:Active Hypothyroidism: Family Histo ry Status:Active Hypothyroidism: Father Status:Active Systemic Lupus Erythematosus : Family History Status:Active Epilepsy And Recurrent Seizu res: Family History(V17.2) Comments:Sister has absence seizures and GTC seizures; Status:Active Unknown Family Member Name Dates Details Family history of hypothyroi dism: Father(V18.19, Z83.49) Status:Active Family history of diabetes m ellitus: Mother(V18.0, Z83.3) Status:Active Family history of cardiac di sorder: Mother(V17.49, Z82.49) Status:Active Family history of hypertensi on: Mother(V17.49, Z82.49) Status:Active Reported Family History Of H eart Disease: Family History Status:Active Diabetes Mellitus: Family Hi story(V18.0) Comments:mother; Status:Active Chronic Obstructive Pulmonar y Disease: Family History Status:Active Hypothyroidism: Family Histo ry Status:Active Hypothyroidism: Father Status:Active Systemic Lupus Erythematosus : Family History Status:Active Epilepsy And Recurrent Seizu res: Family History(V17.2) Comments:Sister has absence seizures and GTC seizures; Status:Active Unknown Family Member Name Dates Details Family history of hypothyroi dism: Father(V18.19, Z83.49) Status:Active Family history of diabetes m ellitus: Mother(V18.0, Z83.3) Status:Active Family history of cardiac di sorder: Mother(V17.49, Z82.49) Status:Active Family history of hypertensi on: Mother(V17.49, Z82.49) Status:Active Reported Family History Of H eart Disease: Family History Status:Active Diabetes Mellitus: Family Hi story(V18.0) Comments:mother; Status:Active Chronic Obstructive Pulmonar y Disease: Family History Status:Active Hypothyroidism: Family Histo ry Status:Active Hypothyroidism: Father Status:Active Systemic Lupus Erythematosus : Family History Status:Active Epilepsy And Recurrent Seizu res: Family History(V17.2) Comments:Sister has absence seizures and GTC seizures; Status:Active Unknown Family Member Name Dates Details Family history of hypothyroi dism: Father(V18.19, Z83.49) Status:Active Family history of diabetes m ellitus: Mother(V18.0, Z83.3) Status:Active Family history of cardiac di sorder: Mother(V17.49, Z82.49) Status:Active Family history of hypertensi on: Mother(V17.49, Z82.49) Status:Active Reported Family History Of H eart Disease: Family History Status:Active Diabetes Mellitus: Family Hi story(V18.0) Comments:mother; Status:Active Chronic Obstructive Pulmonar y Disease: Family History Status:Active Hypothyroidism: Family Histo ry Status:Active Hypothyroidism: Father Status:Active Systemic Lupus Erythematosus : Family History Status:Active Epilepsy And Recurrent Seizu res: Family History(V17.2) Comments:Sister has absence seizures and GTC seizures; Status:Active Unknown Family Member Name Dates Details Family history of hypothyroi dism: Father(V18.19, Z83.49) Status:Active Family history of diabetes m ellitus: Mother(V18.0, Z83.3) Status:Active Reported Family History Of H eart Disease: Family History Status:Active Diabetes Mellitus: Family Hi story(V18.0) Comments:mother; Status:Active Chronic Obstructive Pulmonar y Disease: Family History Status:Active Hypothyroidism: Family Histo ry Status:Active Hypothyroidism: Father Status:Active Systemic Lupus Erythematosus : Family History Status:Active Epilepsy And Recurrent Seizu res: Family History(V17.2) Comments:Sister has absence seizures and GTC seizures; Status:Active Family history of cardiac di sorder: Mother(V17.49, Z82.49) Status:Active Family history of hypertensi on: Mother(V17.49, Z82.49) Status:Active Unknown Family Member Name Dates Details Family history of hypothyroi dism: Father(V18.19, Z83.49) Status:Active Family history of diabetes m ellitus: Mother(V18.0, Z83.3) Status:Active Reported Family History Of H eart Disease: Family History Status:Active Diabetes Mellitus: Family Hi story(V18.0) Comments:mother; Status:Active Chronic Obstructive Pulmonar y Disease: Family History Status:Active Hypothyroidism: Family Histo ry Status:Active Hypothyroidism: Father Status:Active Systemic Lupus Erythematosus : Family History Status:Active Epilepsy And Recurrent Seizu res: Family History(V17.2) Comments:Sister has absence seizures and GTC seizures; Status:Active Family history of cardiac di sorder: Mother(V17.49, Z82.49) Status:Active Family history of hypertensi on: Mother(V17.49, Z82.49) Status:Active Unknown Family Member Name Dates Details Family history of hypothyroi dism: Father(V18.19, Z83.49) Status:Active Family history of diabetes m ellitus: Mother(V18.0, Z83.3) Status:Active Reported Family History Of H eart Disease: Family History Status:Active Diabetes Mellitus: Family Hi story(V18.0) Comments:mother; Status:Active Chronic Obstructive Pulmonar y Disease: Family History Status:Active Hypothyroidism: Family Histo ry Status:Active Hypothyroidism: Father Status:Active Systemic Lupus Erythematosus : Family History Status:Active Epilepsy And Recurrent Seizu res: Family History(V17.2) Comments:Sister has absence seizures and GTC seizures; Status:Active Family history of cardiac di sorder: Mother(V17.49, Z82.49) Status:Active Family history of hypertensi on: Mother(V17.49, Z82.49) Status:Active Unknown Family Member Name Dates Details Reported Family History Of H eart Disease: Family History Status:Active Diabetes Mellitus: Family Hi story(V18.0) Comments:mother; Status:Active Chronic Obstructive Pulmonar y Disease: Family History Status:Active Hypothyroidism: Family Histo ry Status:Active Hypothyroidism: Father Status:Active Systemic Lupus Erythematosus : Family History Status:Active Epilepsy And Recurrent Seizu res: Family History(V17.2) Comments:Sister has absence seizures and GTC seizures; Status:Active Family history of hypertensi on: Mother(V17.49, Z82.49) Status:Active Family history of cardiac di sorder: Mother(V17.49, Z82.49) Status:Active Family history of diabetes m ellitus: Mother(V18.0, Z83.3) Status:Active Family history of hypothyroi dism: Father(V18.19, Z83.49) Status:Active Unknown Family Member Name Dates Details Family history of hypothyroi dism: Father(V18.19, Z83.49) Status:Active Family history of diabetes m ellitus: Mother(V18.0, Z83.3) Status:Active Family history of cardiac di sorder: Mother(V17.49, Z82.49) Status:Active Family history of hypertensi on: Mother(V17.49, Z82.49) Status:Active Reported Family History Of H eart Disease: Family History Status:Active Diabetes Mellitus: Family Hi story(V18.0) Comments:mother; Status:Active Chronic Obstructive Pulmonar y Disease: Family History Status:Active Hypothyroidism: Family Histo ry Status:Active Hypothyroidism: Father Status:Active Systemic Lupus Erythematosus : Family History Status:Active Epilepsy And Recurrent Seizu res: Family History(V17.2) Comments:Sister has absence seizures and GTC seizures; Status:Active Unknown Family Member Name Dates Details Family history of hypothyroi dism: Father(V18.19, Z83.49) Status:Active Family history of diabetes m ellitus: Mother(V18.0, Z83.3) Status:Active Family history of cardiac di sorder: Mother(V17.49, Z82.49) Status:Active Family history of hypertensi on: Mother(V17.49, Z82.49) Status:Active Reported Family History Of H eart Disease: Family History Status:Active Diabetes Mellitus: Family Hi story(V18.0) Comments:mother; Status:Active Chronic Obstructive Pulmonar y Disease: Family History Status:Active Hypothyroidism: Family Histo ry Status:Active Hypothyroidism: Father Status:Active Systemic Lupus Erythematosus : Family History Status:Active Epilepsy And Recurrent Seizu res: Family History(V17.2) Comments:Sister has absence seizures and GTC seizures; Status:Active Unknown Family Member Name Dates Details Family history of hypothyroi dism: Father(V18.19, Z83.49) Status:Active Family history of diabetes m ellitus: Mother(V18.0, Z83.3) Status:Active Family history of cardiac di sorder: Mother(V17.49, Z82.49) Status:Active Family history of hypertensi on: Mother(V17.49, Z82.49) Status:Active Reported Family History Of H eart Disease: Family History Status:Active Diabetes Mellitus: Family Hi story(V18.0) Comments:mother; Status:Active Chronic Obstructive Pulmonar y Disease: Family History Status:Active Hypothyroidism: Family Histo ry Status:Active Hypothyroidism: Father Status:Active Systemic Lupus Erythematosus : Family History Status:Active Epilepsy And Recurrent Seizu res: Family History(V17.2) Comments:Sister has absence seizures and GTC seizures; Status:Active Unknown Family Member Name Dates Details Family history of hypothyroi dism: Father(V18.19, Z83.49) Status:Active Family history of diabetes m ellitus: Mother(V18.0, Z83.3) Status:Active Family history of cardiac di sorder: Mother(V17.49, Z82.49) Status:Active Family history of hypertensi on: Mother(V17.49, Z82.49) Status:Active Reported Family History Of H eart Disease: Family History Status:Active Diabetes Mellitus: Family Hi story(V18.0) Comments:mother; Status:Active Chronic Obstructive Pulmonar y Disease: Family History Status:Active Hypothyroidism: Family Histo ry Status:Active Hypothyroidism: Father Status:Active Systemic Lupus Erythematosus : Family History Status:Active Epilepsy And Recurrent Seizu res: Family History(V17.2) Comments:Sister has absence seizures and GTC seizures; Status:Active Unknown Family Member Name Dates Details Family history of hypothyroi dism: Father(V18.19, Z83.49) Status:Active Family history of diabetes m ellitus: Mother(V18.0, Z83.3) Status:Active Family history of cardiac di sorder: Mother(V17.49, Z82.49) Status:Active Family history of hypertensi on: Mother(V17.49, Z82.49) Status:Active Reported Family History Of H eart Disease: Family History Status:Active Diabetes Mellitus: Family Hi story(V18.0) Comments:mother; Status:Active Chronic Obstructive Pulmonar y Disease: Family History Status:Active Hypothyroidism: Family Histo ry Status:Active Hypothyroidism: Father Status:Active Systemic Lupus Erythematosus : Family History Status:Active Epilepsy And Recurrent Seizu res: Family History(V17.2) Comments:Sister has absence seizures and GTC seizures; Status:Active Unknown Family Member Name Dates Details Family history of hypothyroi dism: Father(V18.19, Z83.49) Status:Active Family history of diabetes m ellitus: Mother(V18.0, Z83.3) Status:Active Family history of cardiac di sorder: Mother(V17.49, Z82.49) Status:Active Family history of hypertensi on: Mother(V17.49, Z82.49) Status:Active Reported Family History Of H eart Disease: Family History Status:Active Diabetes Mellitus: Family Hi story(V18.0) Comments:mother; Status:Active Chronic Obstructive Pulmonar y Disease: Family History Status:Active Hypothyroidism: Family Histo ry Status:Active Hypothyroidism: Father Status:Active Systemic Lupus Erythematosus : Family History Status:Active Epilepsy And Recurrent Seizu res: Family History(V17.2) Comments:Sister has absence seizures and GTC seizures; Status:Active Unknown Family Member Name Dates Details Family history of hypothyroi dism: Father(V18.19, Z83.49) Status:Active Family history of diabetes m ellitus: Mother(V18.0, Z83.3) Status:Active Family history of cardiac di sorder: Mother(V17.49, Z82.49) Status:Active Family history of hypertensi on: Mother(V17.49, Z82.49) Status:Active Reported Family History Of H eart Disease: Family History Status:Active Diabetes Mellitus: Family Hi story(V18.0) Comments:mother; Status:Active Chronic Obstructive Pulmonar y Disease: Family History Status:Active Hypothyroidism: Family Histo ry Status:Active Hypothyroidism: Father Status:Active Systemic Lupus Erythematosus : Family History Status:Active Epilepsy And Recurrent Seizu res: Family History(V17.2) Comments:Sister has absence seizures and GTC seizures; Status:Active Unknown Family Member Name Dates Details Epilepsy And Recurrent Seizu res: Family History(V17.2) Comments:Sister has absence seizures and GTC seizures; Status:Active Systemic Lupus Erythematosus : Family History Status:Active Hypothyroidism: Father Status:Active Hypothyroidism: Family Histo ry Status:Active Chronic Obstructive Pulmonar y Disease: Family History Status:Active Diabetes Mellitus: Family Hi story(V18.0) Comments:mother; Status:Active Reported Family History Of H eart Disease: Family History Status:Active Family history of hypertensi on: Mother(V17.49, Z82.49) Status:Active Family history of cardiac di sorder: Mother(V17.49, Z82.49) Status:Active Family history of diabetes m ellitus: Mother(V18.0, Z83.3) Status:Active Family history of hypothyroi dism: Father(V18.19, Z83.49) Status:Active Unknown Family Member Name Dates Details Epilepsy And Recurrent Seizu res: Family History(V17.2) Comments:Sister has absence seizures and GTC seizures; Status:Active Systemic Lupus Erythematosus : Family History Status:Active Hypothyroidism: Father Status:Active Hypothyroidism: Family Histo ry Status:Active Chronic Obstructive Pulmonar y Disease: Family History Status:Active Diabetes Mellitus: Family Hi story(V18.0) Comments:mother; Status:Active Reported Family History Of H eart Disease: Family History Status:Active Family history of hypertensi on: Mother(V17.49, Z82.49) Status:Active Family history of cardiac di sorder: Mother(V17.49, Z82.49) Status:Active Family history of diabetes m ellitus: Mother(V18.0, Z83.3) Status:Active Family history of hypothyroi dism: Father(V18.19, Z83.49) Status:Active Unknown Family Member Name Dates Details Family history of hypothyroi dism: Father(V18.19, Z83.49) Status:Active Family history of diabetes m ellitus: Mother(V18.0, Z83.3) Status:Active Family history of cardiac di sorder: Mother(V17.49, Z82.49) Status:Active Family history of hypertensi on: Mother(V17.49, Z82.49) Status:Active Reported Family History Of H eart Disease: Family History Status:Active Diabetes Mellitus: Family Hi story(V18.0) Comments:mother; Status:Active Chronic Obstructive Pulmonar y Disease: Family History Status:Active Hypothyroidism: Family Histo ry Status:Active Hypothyroidism: Father Status:Active Systemic Lupus Erythematosus : Family History Status:Active Epilepsy And Recurrent Seizu res: Family History(V17.2) Comments:Sister has absence seizures and GTC seizures; Status:Active Unknown Family Member Name Dates Details Family history of hypothyroi dism: Father(V18.19, Z83.49) Status:Active Family history of diabetes m ellitus: Mother(V18.0, Z83.3) Status:Active Family history of cardiac di sorder: Mother(V17.49, Z82.49) Status:Active Family history of hypertensi on: Mother(V17.49, Z82.49) Status:Active Reported Family History Of H eart Disease: Family History Status:Active Diabetes Mellitus: Family Hi story(V18.0) Comments:mother; Status:Active Chronic Obstructive Pulmonar y Disease: Family History Status:Active Hypothyroidism: Family Histo ry Status:Active Hypothyroidism: Father Status:Active Systemic Lupus Erythematosus : Family History Status:Active Epilepsy And Recurrent Seizu res: Family History(V17.2) Comments:Sister has absence seizures and GTC seizures; Status:Active Unknown Family Member Name Dates Details Family history of hypothyroi dism: Father(V18.19, Z83.49) Status:Active Family history of diabetes m ellitus: Mother(V18.0, Z83.3) Status:Active Family history of cardiac di sorder: Mother(V17.49, Z82.49) Status:Active Family history of hypertensi on: Mother(V17.49, Z82.49) Status:Active Reported Family History Of H eart Disease: Family History Status:Active Diabetes Mellitus: Family Hi story(V18.0) Comments:mother; Status:Active Chronic Obstructive Pulmonar y Disease: Family History Status:Active Hypothyroidism: Family Histo ry Status:Active Hypothyroidism: Father Status:Active Systemic Lupus Erythematosus : Family History Status:Active Epilepsy And Recurrent Seizu res: Family History(V17.2) Comments:Sister has absence seizures and GTC seizures; Status:Active Unknown Family Member Name Dates Details Family history of hypothyroi dism: Father(V18.19, Z83.49) Status:Active Family history of diabetes m ellitus: Mother(V18.0, Z83.3) Status:Active Family history of cardiac di sorder: Mother(V17.49, Z82.49) Status:Active Family history of hypertensi on: Mother(V17.49, Z82.49) Status:Active Reported Family History Of H eart Disease: Family History Status:Active Diabetes Mellitus: Family Hi story(V18.0) Comments:mother; Status:Active Chronic Obstructive Pulmonar y Disease: Family History Status:Active Hypothyroidism: Family Histo ry Status:Active Hypothyroidism: Father Status:Active Systemic Lupus Erythematosus : Family History Status:Active Epilepsy And Recurrent Seizu res: Family History(V17.2) Comments:Sister has absence seizures and GTC seizures; Status:Active Unknown Family Member Name Dates Details Family history of hypothyroi dism: Father(V18.19, Z83.49) Status:Active Family history of diabetes m ellitus: Mother(V18.0, Z83.3) Status:Active Family history of cardiac di sorder: Mother(V17.49, Z82.49) Status:Active Family history of hypertensi on: Mother(V17.49, Z82.49) Status:Active Reported Family History Of H eart Disease: Family History Status:Active Diabetes Mellitus: Family Hi story(V18.0) Comments:mother; Status:Active Chronic Obstructive Pulmonar y Disease: Family History Status:Active Hypothyroidism: Family Histo ry Status:Active Hypothyroidism: Father Status:Active Systemic Lupus Erythematosus : Family History Status:Active Epilepsy And Recurrent Seizu res: Family History(V17.2) Comments:Sister has absence seizures and GTC seizures; Status:Active Unknown Family Member Name Dates Details Family history of hypothyroi dism: Father(V18.19, Z83.49) Status:Active Family history of diabetes m ellitus: Mother(V18.0, Z83.3) Status:Active Family history of cardiac di sorder: Mother(V17.49, Z82.49) Status:Active Family history of hypertensi on: Mother(V17.49, Z82.49) Status:Active Diabetes Mellitus: Family Hi story(V18.0) Comments:mother; Status:Active Epilepsy And Recurrent Seizu res: Family History(V17.2) Comments:Sister has absence seizures and GTC seizures; Status:Active Systemic Lupus Erythematosus : Family History Status:Active Hypothyroidism: Father Status:Active Hypothyroidism: Family Histo ry Status:Active Chronic Obstructive Pulmonar y Disease: Family History Status:Active Reported Family History Of H eart Disease: Family History Status:Active Unknown Family Member Name Dates Details Family history of hypothyroi dism: Father(V18.19, Z83.49) Status:Active Family history of diabetes m ellitus: Mother(V18.0, Z83.3) Status:Active Family history of cardiac di sorder: Mother(V17.49, Z82.49) Status:Active Family history of hypertensi on: Mother(V17.49, Z82.49) Status:Active Reported Family History Of H eart Disease: Family History Status:Active Chronic Obstructive Pulmonar y Disease: Family History Status:Active Hypothyroidism: Family Histo ry Status:Active Hypothyroidism: Father Status:Active Systemic Lupus Erythematosus : Family History Status:Active Epilepsy And Recurrent Seizu res: Family History(V17.2) Comments:Sister has absence seizures and GTC seizures; Status:Active Diabetes Mellitus: Family Hi story(V18.0) Comments:mother; Status:Active Unknown Family Member Name Dates Details Family history of hypothyroi dism: Father(V18.19, Z83.49) Status:Active Family history of diabetes m ellitus: Mother(V18.0, Z83.3) Status:Active Family history of cardiac di sorder: Mother(V17.49, Z82.49) Status:Active Family history of hypertensi on: Mother(V17.49, Z82.49) Status:Active Reported Family History Of H eart Disease: Family History Status:Active Chronic Obstructive Pulmonar y Disease: Family History Status:Active Hypothyroidism: Family Histo ry Status:Active Hypothyroidism: Father Status:Active Systemic Lupus Erythematosus : Family History Status:Active Epilepsy And Recurrent Seizu res: Family History(V17.2) Comments:Sister has absence seizures and GTC seizures; Status:Active Diabetes Mellitus: Family Hi story(V18.0) Comments:mother; Status:Active Unknown Family Member Name Dates Details Family history of hypothyroi dism: Father(V18.19, Z83.49) Status:Active Family history of diabetes m ellitus: Mother(V18.0, Z83.3) Status:Active Family history of cardiac di sorder: Mother(V17.49, Z82.49) Status:Active Family history of hypertensi on: Mother(V17.49, Z82.49) Status:Active Reported Family History Of H eart Disease: Family History Status:Active Chronic Obstructive Pulmonar y Disease: Family History Status:Active Hypothyroidism: Family Histo ry Status:Active Hypothyroidism: Father Status:Active Systemic Lupus Erythematosus : Family History Status:Active Epilepsy And Recurrent Seizu res: Family History(V17.2) Comments:Sister has absence seizures and GTC seizures; Status:Active Diabetes Mellitus: Family Hi story(V18.0) Comments:mother; Status:Active Unknown Family Member Name Dates Details Diabetes Mellitus: Family Hi story(V18.0) Comments:mother; Status:Active Family history of hypertensi on: Mother(V17.49, Z82.49) Status:Active Family history of cardiac di sorder: Mother(V17.49, Z82.49) Status:Active Family history of diabetes m ellitus: Mother(V18.0, Z83.3) Status:Active Family history of hypothyroi dism: Father(V18.19, Z83.49) Status:Active Epilepsy And Recurrent Seizu res: Family History(V17.2) Comments:Sister has absence seizures and GTC seizures; Status:Active Systemic Lupus Erythematosus : Family History Status:Active Hypothyroidism: Father Status:Active Hypothyroidism: Family Histo ry Status:Active Chronic Obstructive Pulmonar y Disease: Family History Status:Active Reported Family History Of H eart Disease: Family History Status:Active Unknown Family Member Name Dates Details Family history of hypothyroi dism: Father(V18.19, Z83.49) Status:Active Family history of diabetes m ellitus: Mother(V18.0, Z83.3) Status:Active Family history of cardiac di sorder: Mother(V17.49, Z82.49) Status:Active Family history of hypertensi on: Mother(V17.49, Z82.49) Status:Active Reported Family History Of H eart Disease: Family History Status:Active Chronic Obstructive Pulmonar y Disease: Family History Status:Active Hypothyroidism: Family Histo ry Status:Active Hypothyroidism: Father Status:Active Systemic Lupus Erythematosus : Family History Status:Active Epilepsy And Recurrent Seizu res: Family History(V17.2) Comments:Sister has absence seizures and GTC seizures; Status:Active Diabetes Mellitus: Family Hi story(V18.0) Comments:mother; Status:Active Unknown Family Member Name Dates Details Family history of hypothyroi dism: Father(V18.19, Z83.49) Status:Active Family history of diabetes m ellitus: Mother(V18.0, Z83.3) Status:Active Family history of cardiac di sorder: Mother(V17.49, Z82.49) Status:Active Family history of hypertensi on: Mother(V17.49, Z82.49) Status:Active Reported Family History Of H eart Disease: Family History Status:Active Chronic Obstructive Pulmonar y Disease: Family History Status:Active Hypothyroidism: Family Histo ry Status:Active Hypothyroidism: Father Status:Active Systemic Lupus Erythematosus : Family History Status:Active Epilepsy And Recurrent Seizu res: Family History(V17.2) Comments:Sister has absence seizures and GTC seizures; Status:Active Diabetes Mellitus: Family Hi story(V18.0) Comments:mother; Status:Active Unknown Family Member Name Dates Details Family history of hypothyroi dism: Father(V18.19, Z83.49) Status:Active Family history of diabetes m ellitus: Mother(V18.0, Z83.3) Status:Active Family history of cardiac di sorder: Mother(V17.49, Z82.49) Status:Active Family history of hypertensi on: Mother(V17.49, Z82.49) Status:Active Reported Family History Of H eart Disease: Family History Status:Active Chronic Obstructive Pulmonar y Disease: Family History Status:Active Hypothyroidism: Family Histo ry Status:Active Hypothyroidism: Father Status:Active Systemic Lupus Erythematosus : Family History Status:Active Epilepsy And Recurrent Seizu res: Family History(V17.2) Comments:Sister has absence seizures and GTC seizures; Status:Active Diabetes Mellitus: Family Hi story(V18.0) Comments:mother; Status:Active Unknown Family Member Name Dates Details Family history of hypothyroi dism: Father(V18.19, Z83.49) Status:Active Family history of diabetes m ellitus: Mother(V18.0, Z83.3) Status:Active Family history of cardiac di sorder: Mother(V17.49, Z82.49) Status:Active Family history of hypertensi on: Mother(V17.49, Z82.49) Status:Active Reported Family History Of H eart Disease: Family History Status:Active Chronic Obstructive Pulmonar y Disease: Family History Status:Active Hypothyroidism: Family Histo ry Status:Active Hypothyroidism: Father Status:Active Systemic Lupus Erythematosus : Family History Status:Active Epilepsy And Recurrent Seizu res: Family History(V17.2) Comments:Sister has absence seizures and GTC seizures; Status:Active Diabetes Mellitus: Family Hi story(V18.0) Comments:mother; Status:Active Unknown Family Member Name Dates Details Family history of hypothyroi dism: Father(V18.19, Z83.49) Status:Active Family history of diabetes m ellitus: Mother(V18.0, Z83.3) Status:Active Family history of cardiac di sorder: Mother(V17.49, Z82.49) Status:Active Family history of hypertensi on: Mother(V17.49, Z82.49) Status:Active Reported Family History Of H eart Disease: Family History Status:Active Chronic Obstructive Pulmonar y Disease: Family History Status:Active Hypothyroidism: Family Histo ry Status:Active Hypothyroidism: Father Status:Active Systemic Lupus Erythematosus : Family History Status:Active Epilepsy And Recurrent Seizu res: Family History(V17.2) Comments:Sister has absence seizures and GTC seizures; Status:Active Diabetes Mellitus: Family Hi story(V18.0) Comments:mother; Status:Active Unknown Family Member Name Dates Details Family history of hypertensi on: Mother(V17.49, Z82.49) Status:Active Family history of cardiac di sorder: Mother(V17.49, Z82.49) Status:Active Family history of diabetes m ellitus: Mother(V18.0, Z83.3) Status:Active Family history of hypothyroi dism: Father(V18.19, Z83.49) Status:Active Diabetes Mellitus: Family Hi story(V18.0) Comments:mother; Status:Active Epilepsy And Recurrent Seizu res: Family History(V17.2) Comments:Sister has absence seizures and GTC seizures; Status:Active Systemic Lupus Erythematosus : Family History Status:Active Hypothyroidism: Father Status:Active Hypothyroidism: Family Histo ry Status:Active Chronic Obstructive Pulmonar y Disease: Family History Status:Active Reported Family History Of H eart Disease: Family History Status:Active Unknown Family Member Name Dates Details Family history of hypothyroi dism: Father(V18.19, Z83.49) Status:Active Family history of diabetes m ellitus: Mother(V18.0, Z83.3) Status:Active Family history of cardiac di sorder: Mother(V17.49, Z82.49) Status:Active Family history of hypertensi on: Mother(V17.49, Z82.49) Status:Active Reported Family History Of H eart Disease: Family History Status:Active Chronic Obstructive Pulmonar y Disease: Family History Status:Active Hypothyroidism: Family Histo ry Status:Active Hypothyroidism: Father Status:Active Systemic Lupus Erythematosus : Family History Status:Active Epilepsy And Recurrent Seizu res: Family History(V17.2) Comments:Sister has absence seizures and GTC seizures; Status:Active Diabetes Mellitus: Family Hi story(V18.0) Comments:mother; Status:Active Unknown Family Member Name Dates Details Family history of hypothyroi dism: Father(V18.19, Z83.49) Status:Active Family history of diabetes m ellitus: Mother(V18.0, Z83.3) Status:Active Family history of cardiac di sorder: Mother(V17.49, Z82.49) Status:Active Family history of hypertensi on: Mother(V17.49, Z82.49) Status:Active Reported Family History Of H eart Disease: Family History Status:Active Chronic Obstructive Pulmonar y Disease: Family History Status:Active Hypothyroidism: Family Histo ry Status:Active Hypothyroidism: Father Status:Active Systemic Lupus Erythematosus : Family History Status:Active Epilepsy And Recurrent Seizu res: Family History(V17.2) Comments:Sister has absence seizures and GTC seizures; Status:Active Diabetes Mellitus: Family Hi story(V18.0) Comments:mother; Status:Active Unknown Family Member Name Dates Details Family history of hypothyroi dism: Father(V18.19, Z83.49) Status:Active Family history of diabetes m ellitus: Mother(V18.0, Z83.3) Status:Active Family history of cardiac di sorder: Mother(V17.49, Z82.49) Status:Active Family history of hypertensi on: Mother(V17.49, Z82.49) Status:Active Reported Family History Of H eart Disease: Family History Status:Active Chronic Obstructive Pulmonar y Disease: Family History Status:Active Hypothyroidism: Family Histo ry Status:Active Hypothyroidism: Father Status:Active Systemic Lupus Erythematosus : Family History Status:Active Epilepsy And Recurrent Seizu res: Family History(V17.2) Comments:Sister has absence seizures and GTC seizures; Status:Active Diabetes Mellitus: Family Hi story(V18.0) Comments:mother; Status:Active Unknown Family Member Name Dates Details Family history of hypothyroi dism: Father(V18.19, Z83.49) Status:Active Family history of diabetes m ellitus: Mother(V18.0, Z83.3) Status:Active Family history of cardiac di sorder: Mother(V17.49, Z82.49) Status:Active Family history of hypertensi on: Mother(V17.49, Z82.49) Status:Active Reported Family History Of H eart Disease: Family History Status:Active Chronic Obstructive Pulmonar y Disease: Family History Status:Active Hypothyroidism: Family Histo ry Status:Active Hypothyroidism: Father Status:Active Systemic Lupus Erythematosus : Family History Status:Active Epilepsy And Recurrent Seizu res: Family History(V17.2) Comments:Sister has absence seizures and GTC seizures; Status:Active Diabetes Mellitus: Family Hi story(V18.0) Comments:mother; Status:Active Unknown Family Member Name Dates Details Family history of hypothyroi dism: Father(V18.19, Z83.49) Status:Active Family history of diabetes m ellitus: Mother(V18.0, Z83.3) Status:Active Family history of cardiac di sorder: Mother(V17.49, Z82.49) Status:Active Family history of hypertensi on: Mother(V17.49, Z82.49) Status:Active Reported Family History Of H eart Disease: Family History Status:Active Chronic Obstructive Pulmonar y Disease: Family History Status:Active Hypothyroidism: Family Histo ry Status:Active Hypothyroidism: Father Status:Active Systemic Lupus Erythematosus : Family History Status:Active Epilepsy And Recurrent Seizu res: Family History(V17.2) Comments:Sister has absence seizures and GTC seizures; Status:Active Diabetes Mellitus: Family Hi story(V18.0) Comments:mother; Status:Active Unknown Family Member Name Dates Details Family history of hypothyroi dism: Father(V18.19, Z83.49) Status:Active Family history of diabetes m ellitus: Mother(V18.0, Z83.3) Status:Active Family history of cardiac di sorder: Mother(V17.49, Z82.49) Status:Active Family history of hypertensi on: Mother(V17.49, Z82.49) Status:Active Reported Family History Of H eart Disease: Family History Status:Active Chronic Obstructive Pulmonar y Disease: Family History Status:Active Hypothyroidism: Family Histo ry Status:Active Hypothyroidism: Father Status:Active Systemic Lupus Erythematosus : Family History Status:Active Epilepsy And Recurrent Seizu res: Family History(V17.2) Comments:Sister has absence seizures and GTC seizures; Status:Active Diabetes Mellitus: Family Hi story(V18.0) Comments:mother; Status:Active Unknown Family Member Name Dates Details Family history of hypothyroi dism: Father(V18.19, Z83.49) Status:Active Family history of diabetes m ellitus: Mother(V18.0, Z83.3) Status:Active Family history of cardiac di sorder: Mother(V17.49, Z82.49) Status:Active Family history of hypertensi on: Mother(V17.49, Z82.49) Status:Active Reported Family History Of H eart Disease: Family History Status:Active Chronic Obstructive Pulmonar y Disease: Family History Status:Active Hypothyroidism: Family Histo ry Status:Active Hypothyroidism: Father Status:Active Systemic Lupus Erythematosus : Family History Status:Active Epilepsy And Recurrent Seizu res: Family History(V17.2) Comments:Sister has absence seizures and GTC seizures; Status:Active Diabetes Mellitus: Family Hi story(V18.0) Comments:mother; Status:Active Unknown Family Member Name Dates Details Family history of hypothyroi dism: Father(V18.19, Z83.49) Status:Active Family history of diabetes m ellitus: Mother(V18.0, Z83.3) Status:Active Family history of cardiac di sorder: Mother(V17.49, Z82.49) Status:Active Family history of hypertensi on: Mother(V17.49, Z82.49) Status:Active Reported Family History Of H eart Disease: Family History Status:Active Chronic Obstructive Pulmonar y Disease: Family History Status:Active Hypothyroidism: Family Histo ry Status:Active Hypothyroidism: Father Status:Active Systemic Lupus Erythematosus : Family History Status:Active Epilepsy And Recurrent Seizu res: Family History(V17.2) Comments:Sister has absence seizures and GTC seizures; Status:Active Diabetes Mellitus: Family Hi story(V18.0) Comments:mother; Status:Active Unknown Family Member Name Dates Details Family history of hypothyroi dism: Father(V18.19, Z83.49) Status:Active Family history of diabetes m ellitus: Mother(V18.0, Z83.3) Status:Active Family history of cardiac di sorder: Mother(V17.49, Z82.49) Status:Active Family history of hypertensi on: Mother(V17.49, Z82.49) Status:Active Reported Family History Of H eart Disease: Family History Status:Active Chronic Obstructive Pulmonar y Disease: Family History Status:Active Hypothyroidism: Family Histo ry Status:Active Hypothyroidism: Father Status:Active Systemic Lupus Erythematosus : Family History Status:Active Epilepsy And Recurrent Seizu res: Family History(V17.2) Comments:Sister has absence seizures and GTC seizures; Status:Active Diabetes Mellitus: Family Hi story(V18.0) Comments:mother; Status:Active Unknown Family Member Name Dates Details Family history of hypothyroi dism: Father(V18.19, Z83.49) Status:Active Family history of diabetes m ellitus: Mother(V18.0, Z83.3) Status:Active Family history of cardiac di sorder: Mother(V17.49, Z82.49) Status:Active Family history of hypertensi on: Mother(V17.49, Z82.49) Status:Active Reported Family History Of H eart Disease: Family History Status:Active Chronic Obstructive Pulmonar y Disease: Family History Status:Active Hypothyroidism: Family Histo ry Status:Active Hypothyroidism: Father Status:Active Systemic Lupus Erythematosus : Family History Status:Active Epilepsy And Recurrent Seizu res: Family History(V17.2) Comments:Sister has absence seizures and GTC seizures; Status:Active Diabetes Mellitus: Family Hi story(V18.0) Comments:mother; Status:Active Unknown Family Member Name Dates Details Family history of hypothyroi dism: Father(V18.19, Z83.49) Status:Active Family history of diabetes m ellitus: Mother(V18.0, Z83.3) Status:Active Family history of cardiac di sorder: Mother(V17.49, Z82.49) Status:Active Family history of hypertensi on: Mother(V17.49, Z82.49) Status:Active Reported Family History Of H eart Disease: Family History Status:Active Chronic Obstructive Pulmonar y Disease: Family History Status:Active Hypothyroidism: Family Histo ry Status:Active Hypothyroidism: Father Status:Active Systemic Lupus Erythematosus : Family History Status:Active Epilepsy And Recurrent Seizu res: Family History(V17.2) Comments:Sister has absence seizures and GTC seizures; Status:Active Diabetes Mellitus: Family Hi story(V18.0) Comments:mother; Status:Active Unknown Family Member Name Dates Details Diabetes Mellitus: Family Hi story(V18.0) Comments:mother; Status:Active Epilepsy And Recurrent Seizu res: Family History(V17.2) Comments:Sister has absence seizures and GTC seizures; Status:Active Systemic Lupus Erythematosus : Family History Status:Active Hypothyroidism: Father Status:Active Hypothyroidism: Family Histo ry Status:Active Chronic Obstructive Pulmonar y Disease: Family History Status:Active Reported Family History Of H eart Disease: Family History Status:Active Family history of hypertensi on: Mother(V17.49, Z82.49) Status:Active Family history of cardiac di sorder: Mother(V17.49, Z82.49) Status:Active Family history of diabetes m ellitus: Mother(V18.0, Z83.3) Status:Active Family history of hypothyroi dism: Father(V18.19, Z83.49) Status:Active Unknown Family Member Name Dates Details Family history of hypothyroi dism: Father(V18.19, Z83.49) Status:Active Family history of diabetes m ellitus: Mother(V18.0, Z83.3) Status:Active Family history of cardiac di sorder: Mother(V17.49, Z82.49) Status:Active Family history of hypertensi on: Mother(V17.49, Z82.49) Status:Active Reported Family History Of H eart Disease: Family History Status:Active Chronic Obstructive Pulmonar y Disease: Family History Status:Active Hypothyroidism: Family Histo ry Status:Active Hypothyroidism: Father Status:Active Systemic Lupus Erythematosus : Family History Status:Active Epilepsy And Recurrent Seizu res: Family History(V17.2) Comments:Sister has absence seizures and GTC seizures; Status:Active Diabetes Mellitus: Family Hi story(V18.0) Comments:mother; Status:Active Unknown Family Member Name Dates Details Family history of hypothyroi dism: Father(V18.19, Z83.49) Status:Active Family history of diabetes m ellitus: Mother(V18.0, Z83.3) Status:Active Family history of cardiac di sorder: Mother(V17.49, Z82.49) Status:Active Family history of hypertensi on: Mother(V17.49, Z82.49) Status:Active Reported Family History Of H eart Disease: Family History Status:Active Chronic Obstructive Pulmonar y Disease: Family History Status:Active Hypothyroidism: Family Histo ry Status:Active Hypothyroidism: Father Status:Active Systemic Lupus Erythematosus : Family History Status:Active Epilepsy And Recurrent Seizu res: Family History(V17.2) Comments:Sister has absence seizures and GTC seizures; Status:Active Diabetes Mellitus: Family Hi story(V18.0) Comments:mother; Status:Active Unknown Family Member Name Dates Details Family history of hypothyroi dism: Father(V18.19, Z83.49) Status:Active Family history of diabetes m ellitus: Mother(V18.0, Z83.3) Status:Active Family history of cardiac di sorder: Mother(V17.49, Z82.49) Status:Active Family history of hypertensi on: Mother(V17.49, Z82.49) Status:Active Reported Family History Of H eart Disease: Family History Status:Active Chronic Obstructive Pulmonar y Disease: Family History Status:Active Hypothyroidism: Family Histo ry Status:Active Hypothyroidism: Father Status:Active Systemic Lupus Erythematosus : Family History Status:Active Epilepsy And Recurrent Seizu res: Family History(V17.2) Comments:Sister has absence seizures and GTC seizures; Status:Active Diabetes Mellitus: Family Hi story(V18.0) Comments:mother; Status:Active Unknown Family Member Name Dates Details Family history of hypothyroi dism: Father(V18.19, Z83.49) Status:Active Family history of diabetes m ellitus: Mother(V18.0, Z83.3) Status:Active Family history of cardiac di sorder: Mother(V17.49, Z82.49) Status:Active Family history of hypertensi on: Mother(V17.49, Z82.49) Status:Active Reported Family History Of H eart Disease: Family History Status:Active Chronic Obstructive Pulmonar y Disease: Family History Status:Active Hypothyroidism: Family Histo ry Status:Active Hypothyroidism: Father Status:Active Systemic Lupus Erythematosus : Family History Status:Active Epilepsy And Recurrent Seizu res: Family History(V17.2) Comments:Sister has absence seizures and GTC seizures; Status:Active Diabetes Mellitus: Family Hi story(V18.0) Comments:mother; Status:Active Unknown Family Member Name Dates Details Family history of hypothyroi dism: Father(V18.19, Z83.49) Status:Active Family history of diabetes m ellitus: Mother(V18.0, Z83.3) Status:Active Family history of cardiac di sorder: Mother(V17.49, Z82.49) Status:Active Family history of hypertensi on: Mother(V17.49, Z82.49) Status:Active Reported Family History Of H eart Disease: Family History Status:Active Chronic Obstructive Pulmonar y Disease: Family History Status:Active Hypothyroidism: Family Histo ry Status:Active Hypothyroidism: Father Status:Active Systemic Lupus Erythematosus : Family History Status:Active Epilepsy And Recurrent Seizu res: Family History(V17.2) Comments:Sister has absence seizures and GTC seizures; Status:Active Diabetes Mellitus: Family Hi story(V18.0) Comments:mother; Status:Active Unknown Family Member Name Dates Details Family history of hypothyroi dism: Father(V18.19, Z83.49) Status:Active Family history of diabetes m ellitus: Mother(V18.0, Z83.3) Status:Active Family history of cardiac di sorder: Mother(V17.49, Z82.49) Status:Active Family history of hypertensi on: Mother(V17.49, Z82.49) Status:Active Reported Family History Of H eart Disease: Family History Status:Active Chronic Obstructive Pulmonar y Disease: Family History Status:Active Hypothyroidism: Family Histo ry Status:Active Hypothyroidism: Father Status:Active Systemic Lupus Erythematosus : Family History Status:Active Epilepsy And Recurrent Seizu res: Family History(V17.2) Comments:Sister has absence seizures and GTC seizures; Status:Active Diabetes Mellitus: Family Hi story(V18.0) Comments:mother; Status:Active Unknown Family Member Name Dates Details Family history of hypothyroi dism: Father(V18.19, Z83.49) Status:Active Family history of diabetes m ellitus: Mother(V18.0, Z83.3) Status:Active Family history of cardiac di sorder: Mother(V17.49, Z82.49) Status:Active Family history of hypertensi on: Mother(V17.49, Z82.49) Status:Active Reported Family History Of H eart Disease: Family History Status:Active Chronic Obstructive Pulmonar y Disease: Family History Status:Active Hypothyroidism: Family Histo ry Status:Active Hypothyroidism: Father Status:Active Systemic Lupus Erythematosus : Family History Status:Active Epilepsy And Recurrent Seizu res: Family History(V17.2) Comments:Sister has absence seizures and GTC seizures; Status:Active Diabetes Mellitus: Family Hi story(V18.0) Comments:mother; Status:Active Unknown Family Member Name Dates Details Family history of hypothyroi dism: Father(V18.19, Z83.49) Status:Active Family history of diabetes m ellitus: Mother(V18.0, Z83.3) Status:Active Family history of cardiac di sorder: Mother(V17.49, Z82.49) Status:Active Family history of hypertensi on: Mother(V17.49, Z82.49) Status:Active Reported Family History Of H eart Disease: Family History Status:Active Chronic Obstructive Pulmonar y Disease: Family History Status:Active Hypothyroidism: Family Histo ry Status:Active Hypothyroidism: Father Status:Active Systemic Lupus Erythematosus : Family History Status:Active Epilepsy And Recurrent Seizu res: Family History(V17.2) Comments:Sister has absence seizures and GTC seizures; Status:Active Diabetes Mellitus: Family Hi story(V18.0) Comments:mother; Status:Active Unknown Family Member Name Dates Details Family history of hypothyroi dism: Father(V18.19, Z83.49) Status:Active Family history of diabetes m ellitus: Mother(V18.0, Z83.3) Status:Active Family history of cardiac di sorder: Mother(V17.49, Z82.49) Status:Active Family history of hypertensi on: Mother(V17.49, Z82.49) Status:Active Reported Family History Of H eart Disease: Family History Status:Active Chronic Obstructive Pulmonar y Disease: Family History Status:Active Hypothyroidism: Family Histo ry Status:Active Hypothyroidism: Father Status:Active Systemic Lupus Erythematosus : Family History Status:Active Epilepsy And Recurrent Seizu res: Family History(V17.2) Comments:Sister has absence seizures and GTC seizures; Status:Active Diabetes Mellitus: Family Hi story(V18.0) Comments:mother; Status:Active Unknown Family Member Name Dates Details Family history of hypothyroi dism: Father(V18.19, Z83.49) Status:Active Family history of diabetes m ellitus: Mother(V18.0, Z83.3) Status:Active Family history of cardiac di sorder: Mother(V17.49, Z82.49) Status:Active Family history of hypertensi on: Mother(V17.49, Z82.49) Status:Active Reported Family History Of H eart Disease: Family History Status:Active Chronic Obstructive Pulmonar y Disease: Family History Status:Active Hypothyroidism: Family Histo ry Status:Active Hypothyroidism: Father Status:Active Systemic Lupus Erythematosus : Family History Status:Active Epilepsy And Recurrent Seizu res: Family History(V17.2) Comments:Sister has absence seizures and GTC seizures; Status:Active Diabetes Mellitus: Family Hi story(V18.0) Comments:mother; Status:Active Unknown Family Member Name Dates Details Family history of hypothyroi dism: Father(V18.19, Z83.49) Status:Active Family history of diabetes m ellitus: Mother(V18.0, Z83.3) Status:Active Family history of cardiac di sorder: Mother(V17.49, Z82.49) Status:Active Family history of hypertensi on: Mother(V17.49, Z82.49) Status:Active Reported Family History Of H eart Disease: Family History Status:Active Chronic Obstructive Pulmonar y Disease: Family History Status:Active Hypothyroidism: Family Histo ry Status:Active Hypothyroidism: Father Status:Active Systemic Lupus Erythematosus : Family History Status:Active Epilepsy And Recurrent Seizu res: Family History(V17.2) Comments:Sister has absence seizures and GTC seizures; Status:Active Diabetes Mellitus: Family Hi story(V18.0) Comments:mother; Status:Active Unknown Family Member Name Dates Details Family history of hypothyroi dism: Father(V18.19, Z83.49) Status:Active Family history of diabetes m ellitus: Mother(V18.0, Z83.3) Status:Active Family history of cardiac di sorder: Mother(V17.49, Z82.49) Status:Active Family history of hypertensi on: Mother(V17.49, Z82.49) Status:Active Reported Family History Of H eart Disease: Family History Status:Active Chronic Obstructive Pulmonar y Disease: Family History Status:Active Hypothyroidism: Family Histo ry Status:Active Hypothyroidism: Father Status:Active Systemic Lupus Erythematosus : Family History Status:Active Epilepsy And Recurrent Seizu res: Family History(V17.2) Comments:Sister has absence seizures and GTC seizures; Status:Active Diabetes Mellitus: Family Hi story(V18.0) Comments:mother; Status:Active Unknown Family Member Name Dates Details Family history of hypothyroi dism: Father(V18.19, Z83.49) Status:Active Family history of diabetes m ellitus: Mother(V18.0, Z83.3) Status:Active Family history of cardiac di sorder: Mother(V17.49, Z82.49) Status:Active Family history of hypertensi on: Mother(V17.49, Z82.49) Status:Active Reported Family History Of H eart Disease: Family History Status:Active Chronic Obstructive Pulmonar y Disease: Family History Status:Active Hypothyroidism: Family Histo ry Status:Active Hypothyroidism: Father Status:Active Systemic Lupus Erythematosus : Family History Status:Active Epilepsy And Recurrent Seizu res: Family History(V17.2) Comments:Sister has absence seizures and GTC seizures; Status:Active Diabetes Mellitus: Family Hi story(V18.0) Comments:mother; Status:Active Unknown Family Member Name Dates Details Family history of hypothyroi dism: Father(V18.19, Z83.49) Status:Active Family history of diabetes m ellitus: Mother(V18.0, Z83.3) Status:Active Family history of cardiac di sorder: Mother(V17.49, Z82.49) Status:Active Family history of hypertensi on: Mother(V17.49, Z82.49) Status:Active Reported Family History Of H eart Disease: Family History Status:Active Chronic Obstructive Pulmonar y Disease: Family History Status:Active Hypothyroidism: Family Histo ry Status:Active Hypothyroidism: Father Status:Active Systemic Lupus Erythematosus : Family History Status:Active Epilepsy And Recurrent Seizu res: Family History(V17.2) Comments:Sister has absence seizures and GTC seizures; Status:Active Diabetes Mellitus: Family Hi story(V18.0) Comments:mother; Status:Active Unknown Family Member Name Dates Details Family history of hypothyroi dism: Father(V18.19, Z83.49) Status:Active Family history of diabetes m ellitus: Mother(V18.0, Z83.3) Status:Active Family history of cardiac di sorder: Mother(V17.49, Z82.49) Status:Active Family history of hypertensi on: Mother(V17.49, Z82.49) Status:Active Reported Family History Of H eart Disease: Family History Status:Active Chronic Obstructive Pulmonar y Disease: Family History Status:Active Hypothyroidism: Family Histo ry Status:Active Hypothyroidism: Father Status:Active Systemic Lupus Erythematosus : Family History Status:Active Epilepsy And Recurrent Seizu res: Family History(V17.2) Comments:Sister has absence seizures and GTC seizures; Status:Active Diabetes Mellitus: Family Hi story(V18.0) Comments:mother; Status:Active Unknown Family Member Name Dates Details Family history of hypothyroi dism: Father(V18.19, Z83.49) Status:Active Family history of diabetes m ellitus: Mother(V18.0, Z83.3) Status:Active Family history of cardiac di sorder: Mother(V17.49, Z82.49) Status:Active Family history of hypertensi on: Mother(V17.49, Z82.49) Status:Active Reported Family History Of H eart Disease: Family History Status:Active Chronic Obstructive Pulmonar y Disease: Family History Status:Active Hypothyroidism: Family Histo ry Status:Active Hypothyroidism: Father Status:Active Systemic Lupus Erythematosus : Family History Status:Active Epilepsy And Recurrent Seizu res: Family History(V17.2) Comments:Sister has absence seizures and GTC seizures; Status:Active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 apnea Stroke ([facility]) 2000 mild Tremor Past Surgical History: Procedure Laterality Date Conner pH capsule placement 02/01/2017 Dr. Lobo BREAST REDUCTION 1999 [facility]-nonperforating gastritis ESOPHAGEAL MANOMETRY 02/01/2017 HERNIA REPAIR 06/11/2017 Dr Richards INTRAUTERINE DEVICE INSERTION 02/15/2015 Dr. Pennie Meyers OBGYN Laparoscopic LINX sphincter augmentation with cruroplasty 06/11/2017 Dr. Lobo WISDOM TOOTH EXTRACTION Assessment/Plan: Problem List Items [...] fluids. You are getting labs done before yourCT on the 10/25/2017 so no reason to [...] you need to be followed closer by cardiology. Relevant Orders Ambulatory referral to Cardiology For any new medications prescribed today, patient was educated about indications for the medication, how to take the medication and potential side effects of the medications. * Herlinda Shah LPN - 10/12/2018 2:32 PM EST Pt will be having a CT scan of head/brain w/o and w contrast on 10/25/18 in this encounter* Kindra Prescott RN - 10/24/2018 11:49 AM EST PA SUBMITTED FOR [employer]. in this encounter* Zeke Onofre MD - 11/21/2018 7:53 PM EST OFFICE CONSULTATION NOTE [facility] [address] [facility] [address] [facility] [address] Physicians: Dimas Brooke MD (Family); Nedra Brewer C* (Referring) Subjective: Reema Shah is a 43 y.o. female seen in the office today for Establish Care (referred to office by PCP, s/p [facility] ED x2 for abdominal pain, L radiating shoulder pain) She is accompanied today by her mental health counselor. She was seen in the emergency room 10/02/18 for chest discomfort. Cardiology evaluation was recommended and it turned out she had a ratoprinter who was killed. She is not sure why she was seeing a ratoprinter. According to the EMR she has a history of congestive heart failure, chronic kidney disease chronic, MVP and hypertension. She states she has a sharp, stabbing midsternal and epigastric chest discomfort which she has had for a number of years may be increasing in frequency. Last for varying lengths of time and not necessarily brought on with activity. Nonradiating no associated symptoms. She has never had cardiac testing that she can recall. She has a neuropathy and is limited in her activity level. She has shortness of breath at times, occasional edema, occasional lightheadedness but denies hemalatha syncope. She has so been told that at age 25 she suffered a slight stroke and was treated in [place]. Assessment & Plan: Chest pain at rest Chest discomfort is atypical. Examination and EKG are unremarkable. Her cardiac risk factors are hypertension, obesity and inactivity. She also has a positive family history states mother had 3 open heart surgeries and a stent. Cholesterol status unknown we will obtain lipid profile today. In light of her moderate risk factor profile and chest pain with intermediate cardiac risk we will proceed with a stress nuclear perfusion study. She had a recent seizure couple months ago so we willdo dobutamine. She does have a mild resting tachycardia and is not on beta-blockers. Congestive heart failure is not aware of this being an issue. No failure on exam. Mitral valve prolapse also we do not have the documentation of this. Will obtain echo. Hypertension during office visits. We are asking the nurses at her residence to check blood pressures a couple times a week. Orders placed this encounter: Orders Placed This Encounter Procedures NM Myocardial Perfusion Multiple SPECT Standing Status: Future Standing Expiration Date: 11/22/2019 Scheduling Instructions: Do Not Schedule more than one Nuc Med procedure for a patient per day!!!! (Contact Nuc Med for exceptions) If it is after 12:00pm and procedure is for tomorrow, contact Nuclear Medicine for approval to schedule the procedure. Fax Order/Script to [phone] DO NOT USE R/O A DIAGNOSIS Order Specific Question: What type of stressing agent do you want to be used? Answer: Dobutamine Order Specific Question: Reason for Exam: Answer: Chest pain Order Specific Question: Is the patient ? Answer: No Order Specific Question: Is patient ? Answer: No Lipid panel Standing Status: Future Standing Expiration Date: 11/22/2019 ECG 12 Lead Echocardiogram complete Standing Status: Future Standing Expiration Date: 01/21/2020 Order Specific Question: Reason for exam Answer: Chest pain/tightness Order Specific Question: Is the patient ? Answer: No Follow Up Ordered: Return in about 6 weeks (around 01/03/2019) for Testing should be done in [place] please . Medication List Accurate as of 11/22/18 11:59 PM. If you have any questions, ask your nurse or doctor. CHANGE how you take these medications doxazosin 4 MG tablet Commonly known as: CARDURA Take 0.5 (one-half) tablet (2 mg total) by mouth 2 (two) times a day . What changed: how much to take when to take this Changed by: Dimas Brooke MD lisinopril 10 MG tablet Commonly known as: PRINIANZESTRIL What changed: how much to take CONTINUE [...] These medications were sent to [facility]/pharmacy #[id number] [place] [id number] doxazosin 4 MG tablet Histories: Past Medical History: Diagnosis Date Acquired thrombocytopenia ([facility]) [facility] Escobar Acute kidney injury (H[facility]) 05/22/2018 [facility]/Jonatan Chiu DO Acute UTI 10/14/2018 [facility]/Jono ALEXIS, Moi Anxiety Calcaneal spur of right foot 2017 Documented on x-ray Chronic kidney disease, stage III (moderate) ([facility]) 2000 Congestive heart failure (CHF) ([facility]) [facility]/Lopez Shaikh Depression Epilepsy ([facility]) 08/06/2011 [facility]- [facility]. Chopra Epilepsy ([facility]) 1994 Facet degeneration of lumbar region 10/14/2018 [facility]/Jono ALEXIS, Saulius Mild facet degenerative changes seen in the lower lumbar spine Fatty liver [facility]/Joe Mendieta MD Mild fibrofatty changes of the liver Fluid collection (edema) in the arms, legs, hands and feet 03/09/2018 Dr valentina Chopra Gastritis determined by endoscopy 12/29/2016 Dr. GonzalezUzfvyr-Rmgksybvb-klawynldghzgf nonbleeding with biopsy GERD (gastroesophageal reflux disease) [facility]/Jonatan Janina MontezAram Headache [facility]/Bob Wick MD Hepatic steatosis [facility]/Heidy Jara MD Mild Hiatal hernia 12/29/[address] Lobo grade 4 Hypercholesterolemia [facility]/Jonatan Janina Aram Hypertension 2000 2000-present Insomnia [facility]/Lopez Shaikh Kidney stone [facility]/Lopez Shaikh Low back pain 10/14/2018 [facility]/Jono ALEXIS, Saulius Lung nodule 12/15/2017 0.5 cm pleural based nodule in right middle lobe. Mild linear atelectasis Mitral valve prolapse [facility]/Lopez Shaikh Rectus diastasis [facility]/Heidy Jara MD Present with small wide necked perumbical ventral containing fat. Second degree burn of foot 04/23/2018 Right Foot - [facility] Seizure (HCC) [facility]/Jono ALEXIS, Saulius Sleep apnea Stroke (HCC) 2000 mild Tremor Past Surgical History: Procedure Laterality Date Conner pH capsule placement 02/01/2017 Dr. Lobo BREAST REDUCTION 2000 bilateral [facility] [facility] [facility] her[facility]-nonperforating gastritis ESOPHAGEAL MANOMETRY 02/01/2017 HERNIA REPAIR 06/11/2017 Dr Richards INTRAUTERINE DEVICE INSERTION 02/15/2015 Dr. Pennie Meyers OBGYN Laparoscopic LINX sphincter augmentation with cruroplasty 06/11/2017 Dr. Lobo WISDOM TOOTH EXTRACTION Family History Problem Relation Age of Onset Dementia Mother Hypertension Mother Heart disease Mother Diabetes Mother Type 2 Stroke Mother Heart failure Mother Seizures Mother Parkinson's Mother Thyroid disease Father Hypertension Father Hypothyroidism Father GI problems Father Seizures Sister Hypertension Sister Heart disease Sister Hypothyroidism Sister Anxiety Sister Sickle cell anemia Other No Known Problems Brother Asthma Sister Hypertension Sister Social History Tobacco Use Smoking status: Never Smoker Smokeless tobacco: Never Used Substance Use Topics Alcohol use: No Drug use: No Allergies Allergen Reactions Codeine Other (See Comments) Vomiting Ct: Iodinated Contrast- Oral And Iv Dye Dilaudid [Hydromorphone] Erythromycin Unknown Iodine And Iodide Containing Products Morphine Sulfate Other (See Comments) Vomiting Neurontin [Gabapentin] GI Intolerance Other Phenergan [Promethazine] Other (See Comments) Sick Tramadol Vicodin [Hydrocodone-Acetaminophen] Other (See Comments) Vomiting Zofran [Ondansetron Hcl] Other (See Comments) Vomiting Penicillins Rash Review of Systems Constitution: Positive [...] kg (157 lb) SpO2 96% BMI 31.65 kg/m Physical Exam Constitutional: She is oriented to [...] (moderate) (HCC) CHRONIC KIDNEY DISEASE STAGE 3 Zeke Onofre MD 11/23/2018 in this encounter* Dimas Brooke MD - 12/12/2018 12:06 PM EST Subjective Patient ID: Reema Shah is a 43 y.o. female. Chief Complaint Patient presents with Hypertension Hyperlipidemia Sore Throat X 3 days HPI interval [...] Apparently today when she was in the ratoprinter's office she was told her blood pressure was high she had not taking her medication this morning. Prior to going into see the ratoprinter and she is not sure if she took it last night. She did take her blood pressure medication after she got home. Chronic kidney disease: She has a history of chronic kidney disease. She was first diagnosed in 2000. Last lab was 11/17/2018 Metabolic panel: Sodium 136. Potassium 3.7. Chloride 108. Bicarb 21. Glucose 103. BUN 15. Creatinine 1.0. Estimated GFR 46. Total bili 0.5.. This is improved from prior. Lastestimated GFR was 42 on October 06, 2018. Patient has not been tested for albumin in the urine. She is aware of the importance of avoiding all nephrotoxic drugs which include Motrin, Aleve, Advil, Naprosyn, ibuprofen, Nuprin and all other prescription nonsteroidals. Is aware of the importance of adequate hydration. Sore throat: Patient reports sore throat increase in the last 3 days. Denies any true fever or chills. Taking some eulb-tqm-yhcrjts cough and cold medication. She is gargling and using Chloraseptic lozenges. Does not seem to be helping much. She denies any cough or true fever. No shortness of breath. No facial pain. Allergies Allergen Reactions Codeine Other (See Comments) Vomiting Ct: Iodinated Contrast- Oral And Iv Dye Dilaudid [Hydromorphone] Erythromycin Unknown Iodine And Iodide Containing Products Morphine Sulfate Other (See Comments) Vomiting Neurontin [Gabapentin] GI Intolerance Other Phenergan [Promethazine] Other (See Comments) Sick Tramadol Vicodin [Hydrocodone-Acetaminophen] Other (See Comments) Vomiting Zofran [Ondansetron Hcl] Other (See Comments) Vomiting Penicillins Rash The following portions of the patient's history were reviewed and updated as appropriate: allergies, current medications, past family history, past medical history, past social history, past surgicalhistory and problem list. Review of Systems Constitutional: [...] Adult Pulse: 82 Resp: 16 Temp: 98.1 F (36.7 C) TempSrc: Oral SpO2: 98% Weight: 70.8 kg (156 lb) Height: 4' 11 Estimated body mass index is 31.51 kg/m as calculated from the following: Height as [...] Her behavior is normal. Judgment and thought contentnormal. Assessment/Plan: Problem List Items Addressed This Visit [...] your blood pressure was elevated at the ratoprinter's office today because you had not taking your Cardura as the ratoprinter thought. Your blood pressure has decreased since this morning because its time for the lisinopril to have kicked in. We will have used pickup the Cardura that should be waiting for you at your pharmacy. It is a 4 mg size pill. I would like you to break it in halfand take a half a pill twice a [...] because of poorly controlled diabetes. Next, this causes hypertension. 25% of all people on dialysis of there because of poorly controlled hypertension. There are many other reasons for chronic kidney disease. The remaining total account for the last 25%of the people who are on dialysis. The management of chronic kidney disease involves identificationof the reasons behind the premature aging process. [...] combined non-HDL less than 100 if possible. Alsothe diet and lifestyle modifications to have adequate hydration and to maintain a BUN less than 20 as well as regular exercise with a minimum of 150 280 minutes per week at target heart rate. Also recommend the avoidance of all medications that can cause underlying kidney disease. These include nons teroidals. The nonsteroidal class includes the rhpj-vtu-ixwkthd medications of Motrin, Advil, Aleve, ibuprofen, Naprosyn as well as all the prescription nonsteroidals. Typically we follow individualswith chronic kidney disease a minimum of 2-3 times a year. As the kidney disease progresses we monitor closer. Typically start with a minimum of twice a year lab work and increase to every 3 months if indicated. Referral to a kidney specialist or cuff maker is obtained with sudden declining kidney function, or gradual decline dropping below 30. For any new medications prescribed today, patient was educated about indications for the medication, how to take the medication and potential side effects of the medications. * Rishabh Mcdonough LPN - 11/22/2018 4:15 PM EST Rooming Documentation How often do you need to [...] understand their medications Are you taking any wyzk-nlb-uxlrppa medications or supplements? Patient Response: None Since last being seen in this office, have you seen another healthcare provider? Patient Response: Yes. If yes, where did you see this provider? Dr Noel 2 in this encounter* Herlinda Shah LPN - 03/01/2019 9:48 AM EDT Rooming Documentation How often do you need to [...] understand their medications Are you taking any myer-ioc-vzcwwvx medications or supplements? Patient Response: None Since last being seen in this office, have you seen another healthcare provider? Patient Response: Yes. If yes, where did you see this provider? [facility] * Nedra Brewer CNP - 03/01/2019 8:30 AM EDT Subjective Patient ID: Reema Shah is a 43 y.o. female. Patient is here today for transitional care visit. She was admitted to [facility] 02/21/19 and discharged 02/24/19. She was discharged with dx: CKD, hyperammonemia, polydipsia, resting tremors, and valproic acid toxicity. At this time I do not have any records from [facility]. Patient has continued to have [...] until she follows up with neurology in [facility], Dr. Chopra, her apt is 03/16/2019. At this time the only seizure medication she is on is the Keppra. She is also on Lorazepam 1 mg 4x a day to help with tremors and the seizures. Patient is here with her culture manager and she states they have an assessment on Wednesday to talk about Assisted living. At this time she lives with her cousin and is home alone a lot. It is also causing more stress because of declining relationship with her cousin, they are arguing a lot. culture manager is also concerned with patient's medication adherence, she is not sure that patient is managing her medications accurately. Patient states it is not an issue. The following portions of the patient's history were reviewed and updated as appropriate: allergies, current medications, past family history, past medical history, past social history, past surgicalhistory and problem list. Past Medical History: Diagnosis Date Acquired thrombocytopenia (HCC) [facility] Acute abdominal pain 11/17/2018 [facility] [place]/Artemio ALEXIS,Ac Escobar Acute bronchitis 12/21/2018 Info Gained From: /[facility] report --- Bob Nye MD Acute kidney injury (HCC) 05/22/2018 [facility]/Jonatan Chiu DO Acute UTI 10/14/2018 [facility]/Jono ALEXIS, Teresaus Anxiety Bronchospasm 12/21/2018 Info Gained From: [facility] ED report --- Bob Nye MD Calcaneal spur of right foot 2016 Documented on x-ray Chronic kidney disease, stage III (moderate) ([facility]) 2000 Congestive heart failure (CHF) ([facility]) [facility]/Lopez Shaikh Dehydration 12/12/2018 Info Gained From: /[facility] --- Shilpa Jensen Depression Epilepsy ([facility]) 08/06/2011 [facility]- [facility]. Chopra Epilepsy ([facility]) 1993 Facet degeneration of lumbar region 10/14/2018 [facility]/Jono ALEXIS, Moi Mild facet degenerative changes seen in the lower lumbar spine Fatty liver [facility]/Joe Mendieta MD Mild fibrofatty changes of the liver Fluid collection (edema) in the arms, legs, hands and feet 03/09/2018 Dr valentina Chopra Gastritis determined by endoscopy 12/29/2016 Dr. GuerreroNibrhd-Bzotxtamb-tcieckmjesqma nonbleeding with biopsy Hepatic steatosis [facility]/Heidy Jara MD Mild Hiatal hernia 12/29/[address] Lobo grade 4 Hypercholesterolemia [facility]/Jonatan Chiu DO Hypertension 2000 2000-present Insomnia [facility]/Lopez Shaikh Kidney stone [facility]/Lopez Shaikh Low back pain 10/14/2018 [facility]/Jono ALEXIS, ulius Lung nodule 12/15/2017 0.5 cm pleural based nodule in right middle lobe. Mild linear atelectasis Mitral valve prolapse [facility]/Lopez Shaikh Rectus diastasis [facility]/Heidy Jara MD Present with small wide necked perumbical ventral containing fat. Second degree burn of foot 04/23/2018 Right Foot - [facility] Seizure ([facility]) [facility]/Jono ALEXIS, Sasharynus Sleep apnea Stroke ([facility]) 2000 mild Tremor Upper abdominal pain 12/03/2018 Info Gained From: /[facility] Report --- Ac Gao MD Past Surgical History: Procedure Laterality Date Conner pH capsule placement 02/01/2017 Dr. Lobo BREAST REDUCTION 2000 bilateral EGD 12/29/[facility] 4 hiatal hernia-nonperforating gastritis ESOPHAGEAL MANOMETRY 02/01/2017 HERNIA REPAIR 06/11/2017 Dr Richards INTRAUTERINE DEVICE INSERTION 02/15/2015 Dr. Pennie CARTWRIGHT Laparoscopic LINX sphincter augmentation with cruroplasty 06/11/2017 Dr. Lobo WISDOM TOOTH EXTRACTION Family History Problem Relation Age of Onset Dementia Mother Hypertension Mother Heart disease Mother Diabetes Mother Type 2 Stroke Mother Heart failure Mother Seizures Mother Parkinson's Mother Thyroid disease Father Hypertension Father Hypothyroidism Father GI problems Father Seizures Sister Hypertension Sister Heart disease Sister Hypothyroidism Sister Anxiety Sister Sickle cell anemia Other No Known Problems Brother Asthma Sister Hypertension Sister Social History Tobacco Use Smoking status: Never Smoker Smokeless tobacco: Never Used Substance Use Topics Alcohol use: No Drug use: No Patient's Medications New Prescriptions [...] No medications on file Allergies Allergen Reactions Codeine Other (See Comments) Vomiting Ct: Iodinated Contrast- Oral And Iv Dye Dilaudid [Hydromorphone] Erythromycin Unknown Iodine And Iodide Containing Products Morphine Sulfate Other (See Comments) Vomiting Neurontin [Gabapentin] GI Intolerance Other Phenergan [Promethazine] Other (See Comments) Sick Tramadol Vicodin [Hydrocodone-Acetaminophen] Other (See Comments) Vomiting Zofran [Ondansetron Hcl] Other (See Comments) Vomiting Penicillins Rash Review of Systems Review of [...] Adult Pulse: 93 Resp: 18 Temp: 98 F (36.7 C) TempSrc: Oral SpO2: 98% Weight: 68.5 kg (151 lb) Height: 4' 7.91 Body mass index is 33.96 kg/m . Physical Exam Physical Exam Constitutional: She is [...] any other concerns. No data recorded Goals Blood Pressure < 130/80 High blood pressure makes your heart work too hard. It can cause heart attack, stroke and kidney disease. Coping and Emotions Coping and Emotions: Manage stress Adapt to lifestyle changes Get support from family / friends Medication Adherence Reema is working toward taking medications as directed. If any referrals were placed at today's visit the patient was instructed to call the office if theyhavn't heard anything about the referral within 2 weeks of today's visit. For any new medications prescribed today, patient was educated about indications for the medication, how to take the medication and potential side effects of the medications. documented in this encounter* Nedra Brewer CNP - 03/08/2019 9:25 AM EDT Subjective Patient ID: Reema Shah is a 43 y.o. female. Patient is here today for a follow up visit for hospital admission over a week ago. She had a meeting on Wednesday with Section Leader and assisted living and they are waiting to hear back to see if she qualifies to live in the [facility]. Tremors: Patient continues to be off of the Valproic acid until she is seen by Neurology in [place], Dr. Chopra, her apt is 03/16/2019. She has had no seizures or falls at home. She continues to take 1mg of Ativan 4x a day to help with tremors, seizures, and anxiety. She states she is having issues with mild numbness/tingling in finger and toes. She states she has also noted some difficulty with swallowing, but only occasionally. She had blurred vision while in the hospital and states that is getting better. She states she has been having an increase in headaches. Section Leader is making notes of all of these symptoms so she can let the neurologist know at her apt. The following portions of the patient's history were reviewed and updated as appropriate: allergies, current medications, past family history, past medical history, past social history, past surgicalhistory and problem list. Past Medical History: Diagnosis Date Acquired thrombocytopenia ([facility]) [facility]/Lopez Shaikh Acute kidney injury ([facility]) 05/22/2018 [facility]/Jonatan Chiu DO Anxiety Calcaneal spur of right foot 2016 Documented on x-ray Chronic kidney disease, stage III (moderate) ([facility]) 2000 Congestive heart failure (CHF) ([facility]) [facility]/Lopez Shaikh Depression Epilepsy ([facility]) 08/06/2011 [facility] Chopra Epilepsy ([facility]) 1993 Facet degeneration of lumbar region 10/14/2018 [facility]/Jono ALEXIS, Moi Mild facet degenerative changes seen in the lower lumbar spine Fatty liver [facility]/Joe Mendieta MD Mild fibrofatty changes of the liver Fluid collection (edema) in the arms, legs, hands and feet 03/09/2018 Dr valentina Chopra Gastritis determined by endoscopy 12/29/2016 Dr. GonzalezYawswt-Cclqrngfu-ijkjjydkygrco nonbleeding with biopsy Hepatic steatosis [facility]/Heidy Jara MD Mild Hiatal hernia 12/29/[address] Lobo grade 4 Hypercholesterolemia [facility]/Jonatan Chiu DO Hypertension 2000 2000-present Insomnia [facility]/Lopez Shaikh Kidney stone [facility]/Lopez Shaikh Lung nodule 12/15/2017 0.5 cm pleural based nodule in right middle lobe. Mild linear atelectasis Mitral valve prolapse [facility]/Lopez Shaikh Rectus diastasis [facility]/Heidy Jara MD Present with small wide necked perumbical ventral containing fat. Second degree burn of foot 04/23/2018 Right Foot - [facility] Sleep apnea Stroke (HCC) 2001 mild Tremor Past Surgical History: Procedure Laterality Date Conner pH capsule placement 02/01/2017 Dr. Lobo BREAST REDUCTION 2000 bilateral [facility]-nonperforating gastritis ESOPHAGEAL MANOMETRY 02/01/2017 HERNIA REPAIR 06/11/2017 Dr Richards INTRAUTERINE DEVICE INSERTION 02/15/2015 Dr. Pennie Meyers OBGYCari Laparoscopic LINX sphincter augmentation with cruroplasty 06/11/2017 Dr. Lobo WISDOM TOOTH EXTRACTION Family History Problem Relation Age of Onset Dementia Mother Hypertension Mother Heart disease Mother Diabetes Mother Type 2 Stroke Mother Heart failure Mother Seizures Mother Parkinson's Mother Thyroid disease Father Hypertension Father Hypothyroidism Father GI problems Father Seizures Sister Hypertension Sister Heart disease Sister Hypothyroidism Sister Anxiety Sister Sickle cell anemia Other No Known Problems Brother Asthma Sister Hypertension Sister Social History Tobacco Use Smoking status: Never Smoker Smokeless tobacco: Never Used Substance Use Topics Alcohol use: No Drug use: No Patient's Medications New Prescriptions [...] No medications on file Allergies Allergen Reactions Codeine Other (See Comments) Vomiting Ct: Iodinated Contrast- Oral And Iv Dye Dilaudid [Hydromorphone] Erythromycin Unknown Iodine And Iodide Containing Products Morphine Sulfate Other (See Comments) Vomiting Neurontin [Gabapentin] GI Intolerance Other Phenergan [Promethazine] Other (See Comments) Sick Tramadol Vicodin [Hydrocodone-Acetaminophen] Other (See Comments) Vomiting Zofran [Ondansetron Hcl] Other (See Comments) Vomiting Penicillins Rash Review of Systems Review of [...] Adult Pulse: 93 Resp: 18 Temp: 98.1 F (36.7 C) TempSrc: Oral SpO2: 98% Weight: 68.5 kg (151 lb) Height: 4' 7 Body mass index is 35.1 kg/m . Physical Exam Physical Exam Constitutional: She is [...] and Differential (Completed) No data recorded Goals Blood Pressure < 130/80 High blood pressure makes your heart work too hard. It can cause heart attack, stroke and kidney disease. Coping and Emotions Coping and Emotions: Manage stress Adapt to lifestyle changes Get support from family / friends Medication Adherence Reema is working toward taking medications as directed. If any referrals were placed at today's visit the patient was instructed to call the office if theyhavn't heard anything about the referral within 2 weeks of today's visit. For any new medications prescribed today, patient was educated about indications for the medication, how to take the medication and potential side effects of the medications. documented in this encounter* Jemma Figueroa RN - 03/17/2019 12:45 PM EDT Phoned Neurology, spoke with Brandy hand off r/t follow up appt. And Rx. Brandy. Follow up appt. 04/19/19 @ 0915 05/03/19 @ 0130. Confirmed Ativan order for 0.5 mg po TID. Most recent PCP, ED/admit notes faxed To Neuro at # [phone] Pre-auth [facility] approved Valdemar prior auth. received until 0900 on 03/17/19. Neuro has samples for ~ 1 week until pre-authcompleted. Leslie will call pt. To notify and schedule follow up. * Jemma Figueroa RN - 03/17/2019 12:18 PM EDT Pt. Phoned pharmacy states she did not receive the Ativan 1 mg then subsequently described when shewas taking 1 mg 2 tablets three times per day. Now taking 0.5 mg po 2 tabs po BID. Last Neuro was trying to lower Ativan dosing from 1 mg po to 0.5 mg po three times. * Jemma Figueroa RN - 03/17/2019 9:59 AM EDT Transition of Care for Reema Shah Primary Care Provider Nedra Brewer CNP Spoke to Patient Via: Telephone Patient was Discharged From [facility] Discharge Diagnosis: HTN, anxiety, seizures Admission Date: Observation 03/16/19 @ 0630 Discharge Date: 03/16/19 @ 1626 Patient Stated Reason for Hospitalization: Turned to change clothes - became dizzy and fell backward - denies loss of consciousness or loss of memory. History of recent ED visits: * 02/24/19 local ED visit / inpt. c/o polydipsia and malaise x 3 weeks. Confusion to surroundings x 2 episodes. Stopped Depakote and increased Ativan to 1 mg po 4 x per day * 03/11/19 local ED visit for dizziness and falls d/c to home * 03/15/19 to ED stating seizures. Transferred to [place] observation. Describes turned to change her clothes [...] (two) times a day . What changed: medication strength how much to take Stopped at Discharge: [...] MOUTH TWICE A DAY Medication Reconciliation Review: Home Medication List Reviewed: Yes Patient has All Needed New/Changed or Previous Home Medications: No refill required pre-auth. x 1 Barriers to Taking Medications: Transportation, Forgetting, Lack of understanding, Refills Needed, Other and inconsistent refills Patient is taking medications as directed on Hospital After Visit Summary: No Contact Information Provided for Future Questions or Concerns about Medications: Yes prescribing physician, Functional Status: Patient Status: Slurred Speech, Slow Speech and Status is Pt Norm Patient Reported Current Level of Meeting ADLs: Moderate Difficulty, Some Assistance living with family member attempting to allocate assistaed living placement Mobility: Walker Wheeled Walker Cane Nutrition: Appetite Fair Respiratory: WNL Bowel Normal Stools Bladder No Problems Sleep: Sleeping well and Restlessness Pain: Presence: None, Control Status: Wounds/Drains/Incisions: None Posterior scalp abrasion from fall - no sutures no drainage. Checking Blood Sugar, No Weight No Blood Pressure No Education Discussed: Reportable Symptoms Discussed: Increased SOB or MOSS and Dizziness or Lightheadedness Discussed Criteria to: When to Call PCP, When to Seek Emergent Care with EMS/911/ED, When to Three Dimensional Map Modeler and As Directed by STEM PROCESSING MACHINE OPERATOR/Surgeon/Specialist Additional Information Discussed: Yes Providers/Clinics: Home Health Care Arrangements Initiated: No Follow up with Valentina Chopra MD Specialty: Neurology [address] [place] [address] Future Appointments Date Time Provider Department Center 03/23/2019 1:30 PM CHAYA Oquendo PCP [facility] 06/08/2019 2:00 PM CHAYA Oquendo PCP [facility] Moved into Cousin's house for assistance with medication management Plans on moving to assisted living Yamil Drake unable to contact, Nick , - will not return call. Had appt. With Medicaid, approved. Now trying to address Yamil Drake. Case Jose with Medicaid is attempting to reach out with no answer. Assisted living obtains meds. documented in this encounter* Jemma Figueroa RN - 03/31/2019 2:44 PM EDT SS from [facility] phoned, beginning evaluation for assisted living. Provided with pt. History and struggles including medication management and follow up. Will reach out for update closer to final plan. documented in this encounter* Gauri Saavedra MSW LSW - 12/03/2020 2:19 PM EST DISCHARGE PLAN PROGRESS NOTE Date: 12/03/2020 Time: 2:23 PM Received message from [facility] and patient will have to go by [employer]. Transportation arranged for 15:00 through [employer]. Message sent to JOHN Garcia. Updated Marifer with [employer] [facility]. Patient updated. Patient Name: Reema Shah Date of : 1975 Sex: Female [facility] Disposition D/C Disposition: Usp Facility Agency/Destination: [facility] PAS/RR: PAS, LOC Transportation Type: W/C [employer] Company/Agency Name: [employer](15:00 ([phone])) Options Reviewed: Explained services/benefits Reason for Choice: Patient/Family preference * Gauri Saavedra MSW LSW - 12/03/2020 1:15 PM EST DISCHARGE PLAN PROGRESS NOTE Date: 12/03/2020 Time: 1:16 PM Received level of care results. Updated Marifer with [facility]. Results emailed to Marifer. Updated Dr. Cutler and plan is for discharge. Message sent to JOHN Garcia with an update. Message sent to [facility] for transport. Awaiting time. Patient Name: Reema Shah Date of : 1975 Sex: Female [facility] Disposition D/C Disposition: Usp Facility Agency/Destination: [facility] [place] Reviewed: Explained services/benefits Reason for Choice: Patient/Family preference Anticipated Discharge Plan Anticipated Facility Type: [facility] facility * Gauri Saavedra MSW LSW - 12/03/2020 1:02 PM EST DISCHARGE PLAN PROGRESS NOTE Date: 12/03/2020 Time: 1:02 PM Received message from Vanda with the [facility] requesting additional documents be sent for level of care. Document emailed per current protocol. Patient Name: Reema Shah Date of : 1975 Sex: Female [facility] Disposition D/C Disposition: Usp Facility Agency/Destination: [facility] Options Reviewed: Explained services/benefits Reason for Choice: Patient/Family preference * Anna Cancino OTA - 12/03/2020 11:25 AM EST Occupational Therapy OCCUPATIONAL THERAPY TREATMENT NOTE Skilled Therapy Needs After Discharge Anticipate Resolution of Current Assessment Limitations Including: Mechanical Barriers, Social Support Are Skilled Therapy Services Needed After Discharge: Yes Intensity of Skilled Therapy: Up to 5 days per week Anticipated Duration of Skilled Therapy: Duration 10 - 30 days DME Recommendation: To be determined at next level of care Rehab Potential: Good Outcomes Measures Prior Function Daily Activity: Raw Score: 20 Prior Function Daily Activity % Impaired: 38.32% functionally impaired AM-PAC Daily Activity: Raw Score: 18 AM-PAC Daily Activity % Impaired: 46.65% functionally impaired Activity Tolerance Fair- Therapy Precautions Orthotic Devices: No Weight Bearing Status: WFL General Rehab Precautions: (seizure) Cognition Overall Cognitive Status: Within Functional Limits Arousal/Alertness: Appropriate responses to stimuli Orientation Level: Oriented X4 Safety Judgment: Decreased awareness of need for safety Problem Solving: Able to problem solve independently Attention: Easily distracted Hearing Status: WFL Social Interaction: WFL Skilled Intervention: Followed all commands throughout session. ADL/IADL Grooming : Stand by assistance(oral care) LE Dressing: Stand by assistance(sock removal) Toileting : Contact guard Skilled Intervention: Followed all commands throughout session. Bed Mobility Supine to Sit: Min Functional Transfers Sit to Stand: Contact guard Bed to Chair Transfers: Contact Guard Toilet Transfers: Contact Guard Skilled Intervention: CGA provided for amb to and from bathroom with FWW. Interventions: Pt demo mod impairment with managing phone. Declined need for adaptive utensils for self feeding stating I have tried them and I do not like them. Home Living Type of Home: Trailer Home Layout: Stairs to enter with rails(5 MOHINDER) Bathroom Shower/Tub: Tub/shower unit Bathroom Toilet: Standard Bathroom Equipment: Shower chair Bathroom Accessibility: (Walker does not fit through bathroom door) Home Equipment: Wheeled Walker Prior Level of Function Level of Larose: Needs assistance with ADLs, Needs assistance with homemaking Lives With: Family(Cousin and cousin's daughter) Receives Help From: Family ADL Assistance: Needs assistance Homemaking Assistance: Needs assistance Comments: Pt reports mod I with transfers using FWW. Requires some assist with all ADLs, cousin performs all IADLs. For complete objective data, detailed plan of care and patient education refer to: OT EVALUATION flow sheet, OT TREATMENT flow sheet, patient Plan of Care, Plan of Care progress note, and Patient Education. This note stands as the current Discharge Summary upon patient discharge from the hospital or completion of Occupational Therapy Plan of Care. Gauri Day MSW LSW - 12/03/2020 11:07 AM EST DISCHARGE PLAN PROGRESS NOTE Date: 12/03/2020 Time: 11:07 AM Continue to await level of care results. Patient Name: Reema Shah Date of : 1975 Sex: Female [facility] Disposition D/C Disposition: Usp Facility Agency/Destination: [facility] Options Reviewed: Explained services/benefits Reason for Choice: Patient/Family preference Anticipated Discharge Plan Anticipated Facility Type: [facility] facility * Omayra, Scott Del Rio MD - 12/02/2020 4:51 PM EST [facility] Medicine Inpatient Follow-up 12/02/2020 Scott Cutler MD [facility] Patient: Reema Sahh Date of : 1975 (45 y.o.) PCP: Nedra Brewer CNP ASSESSMENT/PLAN: Reema Shah 45 y.o. female presented with Principal Problem: Fall Active Problems: Essential hypertension Acute kidney injury superimposed on CKD ([facility]) GERD (gastroesophageal reflux disease) Seizures ([facility]) Weakness Hypokalemia Thrombocytopenia ([facility]) Closed undisplaced fracture of nasal bone, initial encounter Hypothyroidism PLAN: 1 . Generalized weakness/physical deconditioning with frequent falls. PT/OT and social service consult for discharge plan. Fall Precautions. 2. Closed Non-Displaced Fx of Nasal Bone: PRN Tylenol, discussed with Dr. Dumont ENT recommended conservative treatment. Follow-up with ENT as needed as an outpatient. 3. Hypokalemia: P.o./IV replaced. 4. Seizures: cont home Depakote ER 250 mg in AM and 500 mg @ HS, and Keppra BID. Primidone 50 mg BID. Seizure precautions. Neuro checks q 4 hr. 5. HTN: Cont home Norvasc 10 mg every day, Cardura 4 mg at bedtime, hydrochlorothiazide 12.5 mg every day 6. RAÚL on CKD III: On admission BUN/Crea: 15/1.52 (14/1.21, 17/1.34). IV fluid hydration. Closely monitor urine output and kidney function test. 7. Depression: Cont Buspar, Ativan in AM and PM, and Zoloft 8. Hypothyroidism: cont home levothyroxine. 03/16/2019 TSH 2.12. TSH/T4: P 9. Thrombocytopenia: Chronic. 10. DVT Ppx: Heparin sq & SCDs Past Medical History: Diagnosis Date Acquired thrombocytopenia ([facility]) [facility] Acute kidney injury ([facility]) 05/22/2018 [facility]/Jonatan Chiu DO Anxiety Arm abrasion 06/19/2019 INFO GAINED FROM: /CONFUCIANIST ED VISIT NOTE --- MENGAC SILVA MD Calcaneal spur of right foot 2016 Documented on x-ray CKD (chronic kidney disease) Congestive heart failure (CHF) ([facility]) [facility]/Lopez Shaikh Contusion, hip 06/19/2019 INFO GAINED FROM: /CONFUCIANIST ED VISIT NOTE --- AC GAO MD Depression Epilepsy ([facility]) 08/06/2011 [facility]- Dr. Chopra Epilepsy ([facility]) 1993 Facet degeneration of lumbar region 10/14/2018 [facility]/Jono ALEXIS, Moi Mild facet degenerative changes seen in the lower lumbar spine Fatty liver [facility]/Joe Mendieta MD Mild fibrofatty changes of the liver Fluid collection (edema) in the arms, legs, hands and feet 03/09/2018 Dr valentina Chopra Gastritis determined by endoscopy 12/29/2016 Dr. GonzalezIhqwjh-Xixagfbny-nwboqrhcfqnxo nonbleeding with biopsy 1 para 1 Hepatic steatosis [facility]/Heidy Jara MD Mild Hiatal hernia 12/29/[address] Lobo grade 4 Hypercholesterolemia [facility]/Jonatan Chiu DO Hypertension 2000 2000-present Insomnia [facility]/Lopez Shaikh Kidney stone [facility]/Lopez Shaikh Laceration of head 06/19/2019 INFO GAINED FROM: /CONFUCIANIST ED VISIT NOTE --- AC GAO MD Lung nodule 12/15/2017 0.5 cm pleural based nodule in right middle lobe. Mild linear atelectasis Mitral valve prolapse [facility]/Lopez Shakih Motor seizure ([facility]) 03/16/2019 INFO GAINED FROM: /CONFUCIANIST ED VISIT --- GILMAN DO,CAREN Rectus diastasis [facility]/Heidy Jara MD Present with small wide necked perumbical ventral containing fat. Second degree burn of foot 04/23/2018 Right Foot - [facility] Sleep apnea Stroke ([facility]) 2000 mild Tremor SUBJECTIVE: No new complain All other systems reviewed and negative other than noted above. OBJECTIVE: Physical Examination: BP 111/67 Pulse 97 Temp 98.2 F (36.8 C) (Oral) Resp 16 Ht 4' 9 Wt 75 kg (165 lb 5.5 oz) SpO2 95% BMI 35.78 kg/m General Appearance: Alert, well appearing, and in no acute distress. HEENT: Head - Normocephalic, atraumatic. Ears - normal external appearance, hearing intact. Nose - normal, no erythema. Throat - mucous membranes moist, pharynx without lesions. Neck: Supple, trachea midline. Cardiovascular: S1, S2 normal. No murmurs, rubs, clicks or gallops appreciated. No pedal edema. Respiratory: Lungs clear to auscultation, no wheezes, rales or rhonchi heard. Abdomen: Soft, non-tender, normal bowel sounds, non-distended, no masses or organomegaly appreciated. Neurological: Some cognitive dysfunction. No focal deficits. Musculoskeletal: No joint tenderness, deformity or swelling. Skin: Normal coloration and turgor. No rashes. Psych: Alert, partially oriented. Normal mood and affect. CURRENT MEDICATIONS: allopurinoL 300 mg Oral Daily amLODIPine 10 mg Oral Daily atorvastatin 20 mg Oral Daily busPIRone 10 mg Oral TID divalproex 250 mg Oral QAM divalproex 500 mg Oral at bedtime doxazosin 4 mg Oral Nightly [START ON 12/05/2020] ergocalciferol 50,000 Units Oral Weekly hydroCHLOROthiazide 12.5 mg Oral Daily levETIRAcetam 500 mg Oral BID levothyroxine 125 mcg Oral QAM LORazepam 1.5 mg Oral at bedtime LORazepam 2 mg Oral QAM primidone 50 mg Oral BID sertraline 100 mg Oral Nightly sertraline 25 mg Oral Nightly Results/Medications Reviewed 12/02/20 4:54 PM: Results from last 7 days Lab Units 12/02/20 0512 12/01/20 1205 SODIUM mmol/L 138 136 POTASSIUM mmol/L 3.3* 3.1* CHLORIDE mmol/L 103 101 BUN mg/dL 16 15 CREATININE mg/dL 1.35* 1.52* GLUCOSE mg/dL 90 111* CALCIUM mg/dL 8.4 -- Results from last 7 days Lab Units 12/02/20 0512 12/01/20 1205 WBC K/mcL 5.33 7.44 HGB g/dL 13.3 14.0 HCT % 41.1 40.7 PLT K/mcL 118* 137* Results from last 7 days Lab Units 12/01/20 1205 ALK PHOS U/L 72 BILIRUBIN TOTAL mg/dL 0.5 BILIRUBIN DIRECT mg/dL 0.1 TOTAL PROTEIN g/dL 7.2 ALTR U/L 21 AST U/L 49* CULTURES: Reviewed 4:54 PM IMAGING: Reviewed 4:54 PM * Sonia Ross, RD - 12/02/2020 1:40 PM EST Nutrition Care Initial Assessment Reason for visit: Nursing Referral for poor oral intake Nutrition Diagnosis: Inadequate oral intake related to poor appetite as evidenced by per patient, poor appetite X 1 week. Nutrition Intervention/Prescription: Continue PO diet Diet: Cardiac Diet Oral nutrition supplement: declines Tube Feeding: n/a Nutrition Goals: PO intake > 50% most meals Start Date:12/02/2020 Expected End Date:12/08/2020 Nutrition Education: encouraged PO Assessment: Pertinent clinical information: Per H&P, pt is s/p fall. ECF placement at discharge. Past Medical History: Diagnosis Date Acquired thrombocytopenia ([facility]) [facility]/Lopez Shaikh Acute kidney injury ([facility]) 05/22/2018 [facility]/Jonatan Chiu DO Anxiety Arm abrasion 06/19/2019 INFO GAINED FROM: /CONFUCIANIST ED VISIT NOTE --- AC GAO MD Calcaneal spur of right foot 2017 Documented on x-ray CKD (chronic kidney disease) Congestive heart failure (CHF) ([facility]) [facility]/Lopez Shaikh Contusion, hip 06/19/2019 INFO GAINED FROM: [facility] ED VISIT NOTE --- AC GAO MD Depression Epilepsy ([facility]) 08/06/2011 [facility]- Dr. Chopra Epilepsy ([facility]) 1993 Facet degeneration of lumbar region 10/14/2018 [facility]/Jono ALEXIS, Moi Mild facet degenerative changes seen in the lower lumbar spine Fatty liver [facility]/Joe Mendieta MD Mild fibrofatty changes of the liver Fluid collection (edema) in the arms, legs, hands and feet 03/09/2018 Dr valentina Chopra Gastritis determined by endoscopy 12/29/2016 Dr. GonzalezZdshru-Bshymwmwm-pyowdlqqcuzik nonbleeding with biopsy 1 para 1 Hepatic steatosis [facility]/Heidy Jara MD Mild Hiatal hernia 12/29/[address] Lobo grade 4 Hypercholesterolemia [facility]/Jonatan Chiu DO Hypertension 2000 2000-present Insomnia [facility]/Lopez Shaikh Kidney stone [facility]/Lopez Shaikh Laceration of head 06/19/2019 INFO GAINED FROM: /CONFUCIANIST ED VISIT NOTE --- MENG ALEXIS,AC A Lung nodule 12/15/2017 0.5 cm pleural based nodule in right middle lobe. Mild linear atelectasis Mitral valve prolapse [facility]/Lopez Shaikh Motor seizure ([facility]) 03/16/2019 INFO GAINED FROM: /CONFUCIANIST ED VISIT --- BLAKE STEELE,CAREN Rectus diastasis [facility]/Heidy Jara MD Present with small wide necked perumbical ventral containing fat. Second degree burn of foot 04/23/2018 Right Foot - [facility] Sleep apnea Stroke ([facility]) 2000 mild Tremor Height: 4' 9 Current weight: 75 kg (165 lb 5.5 oz) BMI Body mass index is 35.78 kg/m . Weight hx: +/- likely d/t edema from CKD and CHF Wt Readings from Last 5 Encounters: 12/01/20 75 kg (165 lb 5.5 oz) 03/16/19 68.5 kg (151 lb) 03/15/19 (!) 145 kg (319 lb 10.7 oz) 03/16/19 65.8 kg (145 lb) 03/11/19 69 kg (152 lb 1.9 oz) Current diet order: Cardiac Current EN order: n/a Current supplements: n/a Recent intake: poor. Current intake Likely does not meet estimated needs. Patient/family comments: Spoke with patient at bedside. Poor appetite X 1 week. Currently eating without difficulty. States she is tired. Declines supplements. RDN encouraged PO intakes. Difficulty Chewing/Swallowing: No Skin Integrity: Intact GI Function: WNL Physical Appearance: no signs or symptoms of malnutrition Labs: Recent Labs 12/02/20 0512 NA 138 K 3.3* BICARB 31 CL 103 GLUCOSE 90 BUN 16 CREATININE 1.35* Scheduled Meds: allopurinoL 300 mg Oral Daily amLODIPine 10 mg Oral Daily atorvastatin 20 mg Oral Daily busPIRone 10 mg Oral TID divalproex 250 mg Oral QAM divalproex 500 mg Oral at bedtime doxazosin 4 mg Oral Nightly [START ON 12/05/2020] ergocalciferol 50,000 Units Oral Weekly hydroCHLOROthiazide 12.5 mg Oral Daily levETIRAcetam 500 mg Oral BID levothyroxine 125 mcg Oral QAM LORazepam 1.5 mg Oral at bedtime LORazepam 2 mg Oral QAM primidone 50 mg Oral BID sertraline 100 mg Oral Nightly sertraline 25 mg Oral Nightly Continuous Infusions: sodium chloride 0.9 % 50 mL/hr (12/02/20 1103) Estimated Energy Needs Total Energy Estimated Needs: 0143-1388 Method for Estimating Needs: 30 kcal/kg Total Protein Estimated Needs: 90 Method for Estimating Needs: 1.2 gm/kg SAUD Carranza, MALICKN, LD Cell Office * Gauri Saavedra MSW LSW - 12/02/2020 1:03 PM EST DISCHARGE PLAN PROGRESS NOTE Date: 12/02/2020 Time: 1:03 PM Received in-basket message from Marifer with [facility] and the patient has been accepted. Updated the patient. Preadmission screening completed and submitted. Level of care completed and submittedto the [facility]. Awaiting results. Patient Name: Reema Shah Date of : 1975 Sex: Female [facility] Disposition D/C Disposition: Usp Facility Agency/Destination: [facility] Options Reviewed: Explained services/benefits Reason for Choice: Patient/Family preference * Becki Ferrer LISW - 12/01/2020 3:24 PM EST Spoke with patient (Pt) at request of Dr. Olivares. Family member (Per Dr. Olivares this is Pt's cousin) that Pt is currently residing with is present during discussion. Pt was discharged from a facility in [place] to live with her cousin. Per cousin and Pt, she has been unable to care for herself. Cousin reports that the Pt is not able to go to the bathroom on her own, prepare her own food, or do anything by herself. Cousin states she cannot care for the Pt at this time. Both Pt and cousin are advocating for inpatient admission. Spoke with [facility] per Pt's request and they state they do not have any bed availability at this time. Pt requests this worker try anywhere else in [place] that's not assisted living. Contacted [facility] who state they will not be able to consider Pt until tomorrow. Also contacted [facility] and spoke with Marifer Hampton ([phone]) who reports they do have bed availability. Marifer states they will have to have a level of care completed due to Pt's insurance and this cannot be done until the [facility] opens up tomorrow. Marifer states that once this is completed the Pt's chart can be linked to them and she will review Ptfor possible admission. Did update Dr. Olivares who states that he will see if he can have Pt admittedto observation unit. Pt's INTERNET MARKETING SPECIALIST, Charlee Richey, contacted this worker and stated that she was concerned about the Pt and istrying to help with placement. Mayte states that she strongly advocates that Pt be admitted somewhere. Mayte reports that if anything is needed to contact her at her office [phone] and connect with option 1 to leave a message. Mayte also provided her personal cell phone, [phone], in the event that she is needed immediately. Mayte asks that this number not be provided to the patient or patient'sfamily but encourages social work to reach out to her with any immediate needs/questions. documented in this encounter* Julian Galeana MD - 12/18/2020 1:19 PM EST Subjective: Patient ID: Reema Shah is a 45 y.o. female. Chief Complaint Patient presents with ED 12/01/20 New Patient/Closed Nasal Bone Fx HPI referral as a part of post traumatic follow-up due to sustained trauma. Reportedly, patient fell and hit his nose against the hard object on 12/01/2020. This was investigated in the emergency department with CT scan describing nondisplaced nasal bones fracture, as well as left maxillary sinusitis. Patient admits to some residual discomfort and pain upon palpation of the nasal bridge but denies external nose deformity, difficulties breathing, sense of smell or vision changes, nasal bleedings. Patient denies purulent drainage from the either nasal cavities, significant sinus pressure but admits to all my teeth hurt. She is in a company of her facility caregiver, who supports patient'sstatements. The following portions of the patient's history were reviewed and updated as appropriate: allergies, current medications, past family history, past medical history, past social history, past surgicalhistory and problem list. Review of Systems Constitutional: Negative. Negative for activity change, appetite change, chills, diaphoresis, fatigue, fever and unexpected weight change. HENT: Negative for congestion, dental problem, drooling, ear discharge, ear pain, facial swelling, hearing loss, mouth sores, nosebleeds, postnasal drip, rhinorrhea, sinus pressure, sinus pain, sneezing, sore throat, tinnitus, trouble swallowing and voice change. Eyes: Negative. Negative for photophobia, pain, discharge, redness, itching and visual disturbance. Respiratory: Negative. Negative for apnea, cough, choking, chest tightness, shortness of breath, wheezing and stridor. Cardiovascular: Negative. Negative for chest pain, palpitations and leg swelling. Gastrointestinal: Negative. Negative for abdominal distention, abdominal pain, anal bleeding, bloodin stool, constipation, diarrhea, nausea and rectal pain. Genitourinary: Negative. Musculoskeletal: Negative. Negative for arthralgias, gait problem, neck pain and neck stiffness. Skin: Negative. Negative for color change, pallor, rash and wound. Allergic/Immunologic: Negative for environmental allergies, food allergies and immunocompromised state. Neurological: Negative for dizziness, tremors, seizures, syncope, facial asymmetry, speech difficulty, weakness, light-headedness, numbness and headaches. Hematological: Negative for adenopathy. Does not bruise/bleed easily. Psychiatric/Behavioral: Negative. Objective: BP 107/73 Pulse 85 Ht 4' 9 SpO2 95% BMI 35.78 kg/m Physical Exam Constitutional: She is oriented to person, place, and time. She appears well- developed and well-nourished. No distress. HENT: Head: Normocephalic and atraumatic. Head is without abrasion, without contusion and without laceration. Right Ear: Tympanic membrane, external ear and ear canal normal. No drainage, swelling or tenderness. No mastoid tenderness. Tympanic membrane is not perforated. Tympanic membrane mobility is normal.No middle ear effusion. No decreased hearing is noted. Left Ear: Tympanic membrane and external ear normal. No drainage, swelling or tenderness. No mastoid tenderness. Tympanic membrane is not perforated. Tympanic membrane mobility is normal. No middle ear effusion. No decreased hearing is noted. Nose: No mucosal edema, rhinorrhea, nose lacerations, sinus tenderness, nasal deformity, septal deviation or nasal septal hematoma. No epistaxis. No foreign bodies. Right sinus exhibits no maxillary sinus tenderness and no frontal sinus tenderness. Left sinus exhibits no maxillary sinus tenderness and no frontal sinus tenderness. Mouth/Throat: Uvula is midline, oropharynx is clear and moist and mucous membranes are normal. She does not have dentures. No oral lesions. No trismus in the jaw. Normal dentition. No dental abscesses, uvula swelling, lacerations or dental caries. No oropharyngeal exudate, posterior oropharyngeal edema, posterior oropharyngeal erythema or tonsillar abscesses. Eyes: Pupils are equal, round, and reactive to light. Conjunctivae and EOM are normal. Right eye exhibits no discharge. Left eye exhibits no discharge. No scleral icterus. Neck: Trachea normal, normal range of motion and phonation normal. Neck supple. No JVD present. No tracheal deviation present. No thyroid mass and no thyromegaly present. Cardiovascular: Normal rate, regular rhythm, normal heart sounds and intact distal pulses. Pulmonary/Chest: No stridor. No respiratory distress. She has no wheezes. She has no rales. She exhibits no tenderness. Abdominal: Soft. Bowel sounds are normal. She exhibits no distension. There is no abdominal tenderness. Musculoskeletal: Normal range of motion. Lymphadenopathy: She has no cervical adenopathy. Right cervical: No superficial cervical, no deep cervical and no posterior cervical adenopathy present. Left cervical: No superficial cervical, no deep cervical and no posterior cervical adenopathy present. Neurological: She is alert and oriented to person, place, and time. No cranial nerve deficit. Coordination normal. Skin: Skin is warm and dry. No rash noted. She is not diaphoretic. No erythema. Psychiatric: She has a normal mood and affect. Her behavior is normal. Judgment and thought contentnormal. I had personally reviewed, performed on 12/01/2020 CT of maxillofacial bones images and agree with below presented impression: 1. Normal CT appearance of the brain. 2. Nondisplaced fractures of the right and left nasal bones. 3. Left maxillary chronic sinusitis. Although, I disagree with statement about chronic sinusitis but rather benign and asymptomatic leftmaxillary sinus inclusion cyst, creating some bottom opacification of the cavity. Assessment/Plan: Essentially normal ENT exam. No indications for medical treatment or surgical intervention. Reassurance, information and instructions to follow-up with me as needed provided. Appropriate note was made and the patient facility documents. 1. Fracture of nasal bones, subsequent encounter for fracture with routine healing 2. Mucous retention cyst of maxillary sinus No orders of the defined types were placed in this encounter. documented in this encounter* Jemma Reyna RN - 02/28/2019 1:11 PM EDT [facility] Nedra Brewer CNP Spoke to Patient Via: Telephone Patient was Discharged From [facility] Discharge Diagnosis: CKD, hyperammonemia, polydipsia, resting tremors, valproic acid toxicity Admission Date: 02/21/19 Discharge Date: 02/24/19 Patient Stated Reason for Hospitalization: very thirsty States current status is now: Improved, patient reports she had a grad mal seizure after returning home from the hospital and since then has been walking much better. Pertinent Inpatient Lab/Imaging/Screenings/Results: Lab Results Component Value Date WBC 6.20 12/12/2018 HGB 14.4 12/12/2018 HCT 44.1 12/12/2018 EXTMCV 92.9 12/12/2018 PLT 122 12/12/2018 Lab Results Component Value Date BUN 27 12/12/2018 CREATININE 1.60 12/12/2018 No results found for: HGBA1C Medication Reconciliation:see reviewed list Depakote on HOLD until after seeing Dr Chopra, Neurology Medication Reconciliation Review: Home Medication List Reviewed: Yes Patient has All Needed New/Changed or Previous Home Medications: Yes Barriers to Taking Medications: N/A or None Patient is taking medications as directed on Hospital After Visit Summary: yes Contact Information Provided for Future Questions or Concerns about Medications: Yes, Referral Clerk Functional Status: Patient Status: Slow Speech and Pleasant Patient Reported Current Level of Meeting ADLs: Mild Difficulty, Minimum Assistance Mobility: Ambulates has a walker does not use it Nutrition: Appetite Poor Respiratory: WNL Bowel Normal Stools Bladder No Problems Sleep: Sleeping well Pain: Presence: Contant and Severe, across lower back Checking Blood Sugar, No Weight No Blood Pressure No Education Discussed: Reportable Symptoms Discussed: Increased SOB or MOSS, Increased CP, Awakening in the Night with SOB,New or Increased Edema/Swelling of Extremity(s), Decreased Activity Tolerance, New Onset Pain or Pain that is Different than Previous Pain and Unable to Eat Discussed Criteria to: When to Call PCP and When to Seek Emergent Care with EMS/911/ED Additional Information Discussed: Yes, 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 Patient reports her Corporate Sales Manager attends all herphysician appointments. Providers/Clinics: Home Health Care Arrangements Initiated: No Future Appointments Date Time Provider Department Center 03/01/2019 8:30 AM CHAYA Oquendo PCP [facility] Requested To: ? Bring All Medication Bottles To Appointment ? documented in this encounter Reason for Referral Status Reason Specialty Diagnoses / Procedures Referred By Contact Referred To Contact Authorized Cardiology Diagnoses Essential hypertension Chronic kidney disease, stage III (moderate) (HCC) Chest pain at rest Nedra Brewer CNP [address] [address] [facility] [place] [address] [place] [address] Status Reason Specialty Diagnoses / Procedures Referred By Contact Referred To Contact Pending Review Cardiology Diagnoses Chest pain at rest Procedures Echocardiogram complete Zeke Onofre MD [address] [place] [address] Status Reason Specialty Diagnoses / Procedures Referred By Contact Referred To Contact Pending Review Radiology Diagnoses Chest pain at rest Procedures NM Myocardial Perfusion Multiple SPECT Zeke Onofre MD [address] [place] [address] Status Reason Specialty Diagnoses / Procedures Referred By Contact Referred To Contact Closed Cardiology Diagnoses Essential hypertension Chronic kidney disease, stage III (moderate) (HCC) Chest pain at rest Nedra Brewer CNP [address] [place] [address] Zeke Onofre MD [address] [place] [address] Status Reason Specialty Diagnoses / Procedures Referred By Contact Referred To Contact Authorized Patient Preference Rehabilitation Diagnoses Seizures (HCC) Medication refill Closed fracture of nasal bone, initial encounter Weakness Hypokalemia Thrombocytopenia (HCC) Closed undisplaced fracture of nasal bone, initial encounter Hypothyroidism, unspecified type Gastroesophageal reflux disease, unspecified whether esophagitis present Essential hypertension Acute kidney injury superimposed on CKD (HCC) Seizure (HCC) Valproic acid toxicity, accidental or unintentional, subsequent encounter Chest pain at rest History of UTI Obesity, Class I, BMI 30.0-34.9 (see actual BMI) Depression with anxiety Scalp psoriasis Hiatal hernia Hirsutism Omayra, Scott Del Rio MD [address] [place] [address] Specialty Diagnoses / Procedures Referred By Contac t Referred To Contact Otolaryngology Diagnoses Fracture of bone of nasal sinus (HCC) Sammie Iglesias MD [address] [place] [address] Julian Galeana MD [address] [place] [address] Referral ID Status Reason Start Date Expiration Date V isits Requested Visits Authorized [id number] Authorized 07/18/2021 07/18/2022 1 1 Specialty Diagnoses / Procedures Referred By Contac t Referred To Contact Neurology Diagnoses Migraine without status migrainosus, not intractable, unspecified migraine type Jeanie Ayala MD [address] [place] [address] [facility] Neurology [facility] Referral ID Status Reason Start Date Expiration Date V isits Requested Visits Authorized [id number] Authorized 10/28/2022 10/28/2023 1 1 Specialty Diagnoses / Procedures Referred By Contac t Referred To Contact Diagnoses Menorrhagia with irregular cycle Matthew Pérez MD [address] [facility] Medical Office, [place] [phone] Referral ID Status Reason Start Date Expiration Date V isits Requested Visits Authorized [id number] Pending Review 08/16/2023 08/15/2024 1 1 Specialty Diagnoses / Procedures Referred By Contac t Referred To Contact Radiology Diagnoses Preop testing Procedures XR chest 2 views Matthew Pérez MD [address] [facility] Medical Office, [address] [address] Referral ID Status Reason Start Date Expiration Date Visits Requested Visits Authorized [id number] Authorized Perform Procedure 08/15/2024 1 1 Specialty Diagnoses / Procedures Referred By Contac t Referred To Contact Diagnoses Preop testing Procedures ECG 12 Lead Matthew Pérez MD [address] [facility] Medical Office, [address] [address] Referral ID Status Reason Start Date Expiration Date V isits Requested Visits Authorized [id number] Pending Review 08/16/2023 08/15/2024 1 1 Specialty Diagnoses / Procedures Referred By Contac t Referred To Contact Diagnoses Abnormal EKG Chest pain, unspecified type Procedures Nuclear Stress Test Jeanie Ayala MD [address] [facility] [place] [address] Referral ID Status Reason Start Date Expiration Date V isits Requested Visits Authorized [id number] Pending Review 09/08/2023 09/07/2024 5 5 Specialty Diagnoses / Procedures Referred By Contac t Referred To Contact Cardiology Diagnoses Preop testing Tachycardia Procedures Holter Or Event Bell Staff Everett Walton MD [address] [place], [facility] [address] [place] [address] Referral ID Status Reason Start Date Expiration Date V isits Requested Visits Authorized [id number] Pending Review 09/21/2023 09/20/2024 1 1 Specialty Diagnoses / Procedures Referred By Contac t Referred To Contact Cardiology Diagnoses Preop testing Tachycardia Procedures Transthoracic Echo (TTE) Complete WV ECHO TRANSTHORC R-T 2D W/WO M-MODE REC F-UP/LMTD WV DOP ECHOCARD COLOR FLOW VELOCITY MAPPING WV DOP ECHOCARD PULSE WAVE W/SPECTRAL F-UP/LMTD STD Everett Walton MD [address] [place], [address] [address] Referral ID Status Reason Start Date Expiration Date Visits Requested Visits Authorized [id number] Pending Review Perform Procedure 09/21/2023 09/20/2024 1 1 Referral ID Status Reason Start Date Expiration Date V isits Requested Visits Authorized [id number] Authorized 09/21/2023 09/20/2024 1 1 Specialty Diagnoses / Procedures Referred By Contac t Referred To Contact Radiology Diagnoses Preop testing Tachycardia Procedures Nuclear Stress Test CHG MYOCARDIAL SPECT MULTIPLE STUDIES CHG MYOCARDIAL SPECT SINGLE STUDY AT REST OR STRESS Everett Walton MD [address] [place], [facility] [address] [place] [address] Referral ID Status Reason Start Date Expiration Date V isits Requested Visits Authorized [id number] Authorized 09/21/2023 09/20/2024 5 5 Specialty Diagnoses / Procedures Referred By Contac t Referred To Contact Diagnoses Preop testing Tachycardia Procedures Cardiology Interpretation Of Nuclear Stress - See Other Report For Nuclear Portion Everett Walton MD [address] [place] [address] Dr Francheska Stuart, [address] [address] Referral ID Status Reason Start Date Expiration Date V isits Requested Visits Authorized [id number] Authorized 10/05/2023 10/04/2024 1 1 Specialty Diagnoses / Procedures Referred By Contac t Referred To Contact Occupational Therapy Diagnoses Frequent falls Procedures W[place] OFFICE/OUTPATIENT NEW HIGH MDM 60 MINUTES Mejia Cullen MD [address] [place] [phone] Referral ID Status Reason Start Date Expiration Date Visits Requested Visits Authorized [id number] Pending Review Eval and Treat 10/25/2023 10/25/2024 99 99 Specialty Diagnoses / Procedures Referred By Contac t Referred To Contact Physical Therapy Diagnoses Frequent falls Procedures W[place] OFFICE/OUTPATIENT NEW HIGH MDM 60 MINUTES Mejia Cullen MD [address] [place] [id number] Referral ID Status Reason Start Date Expiration Date Visits Requested Visits Authorized [id number] Pending Review Eval and Treat 10/25/2023 04/22/2024 99 99 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) Procedures EEG R PROGRAMMER MONITORING 2 - 3 DAY Sohail Hernandez MD PhD [address] [address] Referral ID Status Reason Start Date Expiration Date V isits Requested Visits Authorized [id number] Pending Review 07/07/2024 07/02/2025 1 1 Specialty Diagnoses / Procedures Referred By Contac t Referred To Contact Radiology Diagnoses Encounter for screening mammogram for breast cancer Procedures BI mammo bilateral screening tomosynthesis Jeanie Ayala MD [address] [place] [address] Referral ID Status Reason Start Date Expiration Date Visits Requested Visits Authorized [id number] Authorized Perform Procedure 12/13/2023 12/12/2024 1 1 Discharge Instructions * Instructions* Meena Carter RN - 03/16/2019 Seizure: Care Instructions Your Care Instructions Seizures are caused by abnormal patterns of electrical signals in the brain. They are different foreach person. Seizures can affect movement, speech, vision, or awareness. Some people have only slight shaking ofa hand and do not pass out. Other people may pass out and have violent shaking of the whole body. Some people appear to stare into space. They are awake, but they can't respond normally. Later, they may not remember what happened. You may need tests to identify the type and cause of the seizures. A seizure may occur only once, or you may have them more than one time. Taking medicines as directed and following up with your doctor may help keep you from having more seizures. The doctor has checked you carefully, but problems can develop later. If you notice any problems ornew symptoms, get medical treatment right away. Follow-up care is a huang part of your treatment and safety. Be sure to make and go to all appointments, and call your doctor if you are having problems. It's also a good idea to know your test resultsand keep a list of the medicines you take. How can you care for yourself at home? Be safe with medicines. Take your medicines exactly as prescribed. Call your doctor if you think you are having a problem with your medicine. Do not do any activity that could be dangerous to you or others until your doctor says it is safe to do so. For example, do not drive a car, operate machinery, swim, or climb ladders. Be sure that anyone treating you for any health problem knows that you have had a seizure and what medicines you are taking for it. Identify and avoid things that may make you more likely to have a seizure. These may include lack of sleep, alcohol or drug use, stress, or not eating. Make sure you go to your follow-up appointment. When should you call for help? Call 911 anytime you think you may need emergency care. For example, call if: You have another seizure. You have more than one seizure in 24 hours. You have new symptoms, such as trouble walking, speaking, or thinking clearly. Call your doctor now or seek immediate medical care if: You are not acting normally. Watch closely for changes in your health, and be sure to contact your doctor if you have any problems. Where can you learn more? Log into your personal health record on [email or web address] and enter M769 in the Education box to learn more about Seizure: Care Instructions. Current as of: March 20, 2018 Content Version: 12.0 7927-3922 [employer]. Care instructions adapted under license by your healthcare professional. If you have questions about a medical condition or this instruction, always ask your healthcare professional. [employer] disclaims any warranty or liability for your use of this information. documented in this encounter Hospital Course * Scott Cutler MD - 12/03/2020 2:12 PM EST HOSPITALIST DISCHARGE SUMMARY Patient: Reema Shah Account: [id number] Admitted: 12/01/2020 Discharge Date/Time: 12/03/2020 Clinical Summary FINAL DIAGNOSIS: Principal Problem: Fall Active Problems: Essential hypertension Acute kidney injury superimposed on CKD ([facility]) GERD (gastroesophageal reflux disease) Seizures ([facility]) Weakness Hypokalemia Thrombocytopenia ([facility]) Closed undisplaced fracture of nasal bone, initial encounter Hypothyroidism Past Medical History: Diagnosis Date Acquired thrombocytopenia ([facility]) [facility] Shaikh Acute kidney injury ([facility]) 05/22/2018 [facility]/Jonatan Chiu DO Anxiety Arm abrasion 06/19/2019 INFO GAINED FROM: /CONFUCIANIST ED VISIT NOTE --- AC GAO MD Calcaneal spur of right foot 2017 Documented on x-ray CKD (chronic kidney disease) Congestive heart failure (CHF) ([facility]) [facility] Shaikh Contusion, hip 06/19/2019 INFO GAINED FROM: /CONFUCIANIST ED VISIT NOTE --- AC GAO MD Depression Epilepsy ([facility]) 08/06/2011 [facility]- Dr. Chopra Epilepsy ([facility]) 1993 Facet degeneration of lumbar region 10/14/2018 [facility]/Jono ALEXIS, Moi Mild facet degenerative changes seen in the lower lumbar spine Fatty liver [facility]/Joe Mendieta MD Mild fibrofatty changes of the liver Fluid collection (edema) in the arms, legs, hands and feet 03/09/2018 Dr valentina Chopra Gastritis determined by endoscopy 12/29/2016 Dr. GonzalezQqvmwn-Jslowaeug-asjpgaohlmqvs nonbleeding with biopsy 1 para 1 Hepatic steatosis [facility]/Heidy Jara MD Mild Hiatal hernia 12/29/[address] Lobo grade 4 Hypercholesterolemia [facility]/Jonatan Chiu DO Hypertension 2000 2000-present Insomnia [facility] Shaikh Kidney stone [facility]/Lopez Shaikh Laceration of head 06/19/2019 INFO GAINED FROM: /CONFUCIANIST ED VISIT NOTE --- AC GAO MD Lung nodule 12/15/2017 0.5 cm pleural based nodule in right middle lobe. Mild linear atelectasis Mitral valve prolapse [facility]/Lopez Shaikh Motor seizure ([facility]) 03/16/2019 INFO GAINED FROM: /CONFUCIANIST ED VISIT --- GILMAN DO,CAREN Rectus diastasis [facility]/Heidy Jara MD Present with small wide necked perumbical ventral containing fat. Second degree burn of foot 04/23/2018 Right Foot - [facility] Sleep apnea Stroke ([facility]) 2000 mild Tremor REASON FOR HOSPITALIZATION AND ADMITTING DIAGNOSIS: Seizures Seizures ([facility]) [R56.9] Weakness [R53.1] Medication refill [Z76.0] Closed fracture of nasal bone, initial encounter [S02.2XXA] HOSPITAL COURSE: This is a 45-year-old female with past medical history of hypertension, hyperlipidemia, CVA, seizures, cognitive dysfunction, CKD stage III, sleep apnea, admitted on 12/01/2020 1 . Generalized weakness/physical deconditioning with frequent falls. PT/OT and social service consult for discharge plan. Fall Precautions. 2. Closed Non-Displaced Fx of Nasal Bone: PRN Tylenol, discussed with Dr. Dumont ENT recommended conservative treatment. Follow-up with ENT as needed as an outpatient. 3. Hypokalemia: P.o./IV replaced. 4. Seizures: cont home Depakote ER 250 mg in AM and 500 mg @ HS, and Keppra BID. Primidone 50 mg BID. Seizure precautions. Neuro checks q 4 hr. 5. HTN: Cont home Norvasc 10 mg every day, Cardura 4 mg at bedtime, hydrochlorothiazide 12.5 mg every day 6. RAÚL on CKD III: On admission BUN/Crea: 15/1.52 (14/1.21, 17/1.34). IV fluid hydration. Closely monitor urine output and kidney function test. 7. Depression: Cont Buspar, Ativan in AM and PM, and Zoloft 8. Hypothyroidism: cont home levothyroxine. 9. Thrombocytopenia: Chronic. We discharge patient to SNF. CONDITION AT DISCHARGE: Stable Physical Examination: Blood pressure 106/73, pulse 96, temperature 98.8 F (37.1 C), temperature source Oral, resp. rate 16, height 4' 9, weight 75 kg (165 lb 5.5 oz), SpO2 98 %, not currently . General Appearance: Alert, well appearing, and in no acute distress. HEENT: Head - Normocephalic, atraumatic. Ears - normal external appearance, hearing intact. Nose - normal, no erythema. Throat - mucous membranes moist, pharynx without lesions. Neck: Supple, trachea midline. Cardiovascular: S1, S2 normal. No murmurs, rubs, clicks or gallops appreciated. No pedal edema. Respiratory: Lungs clear to auscultation, no wheezes, rales or rhonchi heard. Abdomen: Soft, non-tender, normal bowel sounds, non-distended, no masses or organomegaly appreciated. Neurological: Some cognitive dysfunction. No focal deficits. Musculoskeletal: No joint tenderness, deformity or swelling. Skin: Normal coloration and turgor. No rashes. Psych: Alert, partially oriented. Normal mood and affect. Procedures: No orders of the defined types were placed in this encounter. Consults: Procedures Hospitalize Patient To : Inpatient consult to Care Management Other Tests: No orders of the defined types were placed in this encounter. LAST LABS: Results from last 7 days Lab Units 12/02/20 0512 SODIUM mmol/L 138 POTASSIUM mmol/L 3.3* CHLORIDE mmol/L 103 BUN mg/dL 16 CREATININE mg/dL 1.35* GLUCOSE mg/dL 90 CALCIUM mg/dL 8.4 Results from last 7 days Lab Units 12/01/20 1205 ALK PHOS U/L 72 BILIRUBIN TOTAL mg/dL 0.5 BILIRUBIN DIRECT mg/dL 0.1 TOTAL PROTEIN g/dL 7.2 ALTR U/L 21 AST U/L 49* Results from last 7 days Lab Units 12/02/20 0512 WBC K/mcL 5.33 HGB g/dL 13.3 HCT % 41.1 PLT K/mcL 118* Results from last 7 days Lab Units 12/01/20 1205 TSH mcIU/mL 4.18 Allergies: Codeine, Dilaudid [hydromorphone], Erythromycin, Morphine sulfate, Neurontin [gabapentin], Other, Phenergan [promethazine], Tramadol, Vicodin [hydrocodone- acetaminophen], Zofran [ondansetron hcl], and Penicillins Discharge Diet: Diet Special; Cardiac Disposition: SNF. Discharge Medications Medication List START taking these medications doxycycline hyclate 100 MG tablet Commonly known as: VIBRA-TABS Take 1 (one) tablet (100 mg total) by mouth 2 (two) times a day . potassium chloride 10 MEQ CR tablet Take 1 (one) tablet (10 mEq total) by mouth 2 (two) times a day for 5 days . Replaces: potassium chloride 10 MEQ CR capsule CHANGE how you take these medications * allopurinoL 300 MG tablet Commonly known as: ZYLOPRIM What changed: Another medication with the same name was added. Make sure you understand how and when to take each. * allopurinoL 300 MG tablet Commonly known as: ZYLOPRIM Take 1 (one) tablet (300 mg total) by mouth daily for 5 days . What changed: You were already taking a medication with the same name, and this prescription was added. Make sure you understand how and when to take each. atorvastatin 20 MG tablet Commonly known as: LIPITOR Take 1 (one) tablet (20 mg total) by mouth at bedtime for 5 days . What changed: when to take this busPIRone 10 MG tablet Commonly known as: BUSPAR Take 1 (one) tablet (10 mg total) by mouth 3 (three) times a day for 5 days . What changed: Another medication with the same name was removed. Continue taking this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 function. Disciplines: OT Goal: OT- LB dressing Dates: Start: 12/02/20 Expected End: 12/09/20 Description: OT - Patient will complete LB dressing with stand by assist to improve self care function. Disciplines: OT Goal: OT- toileting Dates: Start: 12/02/20 Expected End: 12/09/20 Description: OT - Patient will complete toileting with stand by assist to improve self care function. Disciplines: OT Intervention: EDUCATION, ADAPTIVE EQUIPMENT TRAINING Frequency: PRN Dates: Start: 12/02/20 Description: REMINDER(s): Provide instruction on adaptive equipment. Intervention: EDUCATION, ADL/IADL RETRAINING Frequency: PRN Dates: Start: 12/02/20 Intervention: EDUCATION, COMPENSATORY TECHNIQUE TRAINING Frequency: PRN Dates: Start: 12/02/20 Frequency of Treatment (times per week): 5x/week This Occupational Therapy Plan of Care will be carried out until: 1.) The OT plan has been resolved or 2.) The patient is discharged from the acute care hospital PHYSICAL THERAPY VISIT VARIANCE NOTE Attempted to see patient at this time, but unable secondary to: PT Visit Variance: Refused. Approached patient regarding PT evaluation. pt reports being too tired to participate.Will follow up as appropriate. Problem: Falls, Risk of Goal: Absence of falls Outcome: Partially Met Problem: Actual or potential alteration in health Goal: Absence of healthcare acquired conditions Outcome: Partially Met Goal: Knowledge of Interdisciplinary Plan of Care Outcome: Partially Met Goal: Knowledge of Enviroment Outcome: Partially Met Problem: Pain Goal: Manage acute pain Outcome: Partially Met Goal: Manage chronic pain Outcome: Partially Met Goal: Reduced pain sensation Outcome: Partially Met Goal: Achievement of comfort function goal Outcome: Partially Met Problem: Pressure Ulcer - Risk of Goal: Absence of pressure ulcer Outcome: Partially Met documented in this encounter INFORMATION SOURCE (unrecogn ized section and content) DATE CREATED AUTHOR 04/12/2018 [facility] DATE CREATED AUTHOR AUTHOR'S ORGANIZ ATION 04/12/2018 [facility] DATE CREATED AUTHOR AUTHOR'S ORGANIZ ATION 04/22/2018 [facility] DATE CREATED AUTHOR AUTHOR'S ORGANIZ ATION 05/15/2018 [facility] ([place] DATE CREATED AUTHOR AUTHOR'S ORGANIZ ATION 12/06/2018 [facility] DATE CREATED AUTHOR AUTHOR'S ORGANIZ ATION 07/20/2019 [facility] DATE CREATED AUTHOR AUTHOR'S ORGANIZ ATION 01/18/2023 [facility] DATE CREATED AUTHOR AUTHOR'S ORGANIZ ATION 06/16/2023 [facility] DATE CREATED AUTHOR AUTHOR'S ORGANIZ ATION 07/23/2023 [facility] DATE CREATED AUTHOR AUTHOR'S ORGANIZ ATION 09/03/2023 [facility] DATE CREATED AUTHOR AUTHOR'S ORGANIZ ATION 09/06/2023 [facility] DATE CREATED AUTHOR AUTHOR'S ORGANIZ ATION 06/17/2024 [facility] DATE CREATED AUTHOR AUTHOR'S ORGANIZ ATION 06/22/2024 [facility] DATE CREATED AUTHOR AUTHOR'S ORGANIZ ATION 07/03/2024 [facility] DATE CREATED AUTHOR AUTHOR'S ORGANIZ ATION 07/27/2024 [facility] DATE CREATED AUTHOR AUTHOR'S ORGANIZ ATION 02/20/2025 [facility] DATE CREATED AUTHOR AUTHOR'S ORGANIZ ATION 03/18/2025 [facility] DATE CREATED AUTHOR AUTHOR'S ORGANIZ ATION 04/12/2025 [facility] Reason for Visit (unrecogniz ed section and content) Reason Comments Gastroesophageal Reflux Hypertension Error Reason Comments Follow-up ED 09/22 states stoma ch feeling better, seeking neurologist Dr. Chopra, Follow-up ED 10/02 left should er pain states feeling better had falls Reason Comments PRIOR AUTHORIZATION CARDURA Reason Comments Establish Care referred to office b y PCP, s/p [facility] ED x2 for abdominal pain, L radiating shoulder pain Status Reason Specialty Diagnoses / Procedures Referred By Contact Referred To Contact Closed Cardiology Diagnoses Essential hypertension Chronic kidney disease, stage III (moderate) (HCC) Chest pain at rest Spring, Nedra Diana, STEM PROCESSING MACHINE OPERATOR [address] [place] [address] Zeke Onofre MD [address] [place] [address] Reason Comments Hypertension Sore Throat X 3 days Status Reason Specialty Diagnoses / Procedures Referred By Contact Referred To Contact Pending Review Radiology Diagnoses Chest pain at rest Procedures NM Myocardial Perfusion Study Single - Stress Only NM Myocardial Perfusion Multiple SPECT Zeke Onofre MD [address] [place] [address] Reason Comments Transition Of Care Pt reports having to high level depakote D/C at this time, then had a seizure Reason Comments Follow-up seizures reprots no issues or falls Status Reason Specialty Diagnoses / Procedures Referre d By Contact Referred To Contact Diagnoses Seizure Reason Comments Transition Of Care INitial outreach Status Reason Specialty Diagnoses / Procedures Referre d By Contact Referred To Contact Closed Cardiology Diagnoses Chest pain at rest SPECT/Chest pain at rest/[place] to read 12/20/18-confirmed rs appt & instructions w/ Sally fishing rod trimmer at [place], as well as spoke to pt re change of test due to ins auth/JF Procedures NM MYOCARDIAL PERFUSION MULTI SPECT NM STRESS TEST Zeke Onofre MD [address] [place] [address] [place] [address] Reason Comments Seizures Status Reason Specialty Diagnoses / Procedures Referre d By Contact Referred To Contact Diagnoses Seizures (HCC) Weakness Medication refill Closed fracture of nasal bone, initial encounter Reason Comments ED 12/01/20 New Patient/Closed N maye Bone Fx Reason Comments Transition Of Care Reason Comments Transition Of Care follow up d/c 9 [facility] ED/OBS Engine Lathe Set Up Operator Tool Visit ED visit 9 Tremors anxiety induced Reason Comments Medication Refill Reason Comments Follow-up FU ER FOR HIGH BLOOD PRESSURE Reason Comments Follow-up Med refill today Reason Comments Follow-up 1 mo fu pt co notici ng blood when she wipes and trouble urinating Reason Comments Fall Patient reports mech anical fall at home ([facility]) no injury Reason Comments Follow-up GENERAL CHECK UP TOD AY Reason Comments Hypertension Reason Comments Contraception Patient is her today to discuss getting an IUD placed. Patient is having no pelvic pain. Reason Comments New Patient Seizures Reason Onset Date Comments Advice Only 08/19/2023 Clarification on Order Reason Comments Fall Brought to ED by AFD squad from home after fall. She reports that she has head, neck, back, and L hand pain. Denies any LOC, but reports frequent falls d/t underlying medical problems. Denies taking any blood thinners. Refuses C-collar Specialty Diagnoses / Procedures Referred By Contac t Referred To Contact Radiology Diagnoses Preop testing Procedures XR chest 2 views Matthew Pérez MD [address] [facility] Medical [facility], [place] [id number] Referral ID Status Reason Start Date Expiration Date Visits Requested Visits Authorized [id number] Authorized Perform Procedure 08/15/2024 1 1 Specialty Diagnoses / Procedures Referred By Contac t Referred To Contact Diagnoses Preop testing Procedures ECG 12 Lead Matthwe Pérez MD [address] Health system, [facility] [address] [place] [address] Referral ID Status Reason Start Date Expiration Date V isits Requested Visits Authorized [id number] Pending Review 08/16/2023 08/15/2024 1 1 Reason Comments Follow-up 6 MONTH F/U - ONLY L ABS DONE WERE ORDERED BY SSAS DEVELOPER DR. PRÉEZ - PENDING LAPAROSCOPY AND IUD PLACEMENT. MED REFILL LORAZEPAM. Reason Comments Fall Pt to ED from [facility], pt was transferring from her walker to wheelchair and lost her balance and fell back against the corner of a wall. Pt hit posterior head, no bleeding or edema noted at this time. Pt also has scrape to right posterior elbow. Denies LOC, neck pain. Not on blood thinners Reason Comments Fall Specialty Diagnoses / Procedures Referred By Contac t Referred To Contact Cardiology Diagnoses Preop testing Tachycardia Procedures Holter Or Event Bell Staff Everett Walton MD [address] [facility], Mohinder [address] [place] [phone] Referral ID Status Reason Start Date Expiration Date V isits Requested Visits Authorized [id number] Authorized 09/21/2023 09/20/2024 1 1 Specialty Diagnoses / Procedures Referred By Contac t Referred To Contact Radiology Diagnoses Preop testing Tachycardia Procedures Nuclear Stress Test CHG MYOCARDIAL SPECT MULTIPLE STUDIES CHG MYOCARDIAL SPECT SINGLE STUDY AT REST OR STRESS Everett Walton MD [address] [facility], [facility] 2 [place] [phone] Referral ID Status Reason Start Date Expiration Date V isits Requested Visits Authorized [id number] Authorized 09/21/2023 09/20/2024 5 5 Reason Comments New Patient Patient is here for frequent falls. She is having high blood pressure, heart races at times.Very difficult for her to walk, very unsteady. Specialty Diagnoses / Procedures Referred By Shashi mathew Referred To Contact Neurology Diagnoses Frequent falls Procedures [place] OFFICE/OUTPATIENT NEW HIGH MDM 60-74 MINUTES Valentina Chopra MD [address] [place] [address] Satya Faith MD [address] [place] [address] Referral ID Status Reason Start Date Expiration Date V isits Requested Visits Authorized [id number] Closed Specialty Services Required 08/19/2023 08/18/2024 1 1 Reason Comments Pre-op Visit Patient is here to milagro schroeder possible hysterectomy. Reason Comments Fall Pt to ED with EMS af ter a fall in the bathroom. Pt was using her walker, standing at the sink when she became really shaky and fell to the side, onto the toilet. Pt hit her mid back, right shoulder, and hurt her neck. Denies LOC. Pt on vacu-mat per EMS. Reason Onset Date Comments Referral 08/23/2023 Reason Onset Date Comments Orders 12/28/2023 Reason Comments Chest Pain Specialty Diagnoses / Procedures Referred By Shashi t Referred To Contact Diagnoses Chest pain chest pain Referral ID Status Reason Start Date Expiration Date Visits Re quested Visits Authorized [id number] 1 1 Reason Comments Follow-up Follow up Reason Onset Date Comments Records Request/[facility] Reason Onset Date Comments question 01/03/2024 Reason Comments Establish Care Reason Comments Follow-up 3 month follow-up Reason Comments Follow-up MED REFILL TODAY Reason Comments Consult EndometriosisFibroid sChaperone not requiredReviewed and approved by LUCY NEWELL on 04/05/24 at 10:56 AM. Specialty Diagnoses / Procedures Referred By Contac t Referred To Contact Obstetrics and Gynecology Diagnoses Endometriosis Valentina Munoz MD [address] [place] [address] [facility] Medical [facility], [facility] 2 [place] [address] Referral ID Status Reason Start Date Expiration Date Visits Requested Visits Authorized [id number] Authorized Specialty Services Required 11/10/2023 11/09/2024 1 1 Reason Comments Psoriasis New Patient(JY) Specialty Diagnoses / Procedures Referred By Contac t Referred To Contact Dermatology Diagnoses Psoriasis, unspecified Procedures consultation Mejia Cullen MD [address] [place] [address] [facility] [address] [facility] [address] [place] [address] Referral ID Status Reason Start Date Expiration Date V isits Requested Visits Authorized [id number] Pending Review 04/14/2024 04/14/2025 1 1 Reason Comments Abdominal Pain Specialty Diagnoses / Procedures Referred By Contac t Referred To Contact Diagnoses Thrombocytopenia (HCC) Acute appendicitis History of epilepsy Elevated serum creatinine Acute appendicitis, unspecified acute appendicitis type Referral ID Status Reason Start Date Expiration Date Visits Re quested Visits Authorized [id number] 1 1 Reason Comments Follow-up Lap appendectomy Reason Comments New Patient New Patient referred to us by Dr. Chopra for seizures. Last seizure was in March of 2024 and went to [facility] ED in [place]. 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) Procedures [place] OFFICE/OUTPATIENT NEW HIGH MDM 60 MINUTES Valentina Chopra MD [address] [place] [address] Sohail Hernandez MD PhD [address] [facility] [address] [place] [address] Referral ID Status Reason Start Date Expiration Date Visits Requested Visits Authorized [id number] Pending Review Specialty Services Required 04/17/2024 04/17/2025 1 1 Reason Comments Follow-up Seizures Tremors Reason Comments Seborrheic Dermatitis PRASANTH: 05/31/24 with Gayatri Bobby PA-C(JY) Reason Comments Gynecologic Exam Patient is here for yearly exam. Specialty Diagnoses / Procedures Referred By Shashi t Referred To Contact Radiology Diagnoses Encounter for screening mammogram for breast cancer Procedures BI mammo bilateral screening tomosynthesis Jeanie Ayala MD [address] [place] [address] Referral ID Status Reason Start Date Expiration Date Visits Requested Visits Authorized [id number] Authorized Perform Procedure 12/13/2023 12/12/2024 1 1 Reason Comments Follow-up VIRTUAL [phone] (NURSE WITH ST [facility]OB[facility]) - F/U ER DX COVID. PT STILL HAS CONGESTION AND ST. DIARRHEA AND VOMITING STOPPED SUN AFTERNOON. Reason Onset Date Comments Other 07/11/2024 Scheduling Reason Comments Follow-up Seizures Had a seizures last night lasted 10 minutes Reason Comments Follow-up Seizures No new seizures to r eport Reason Comments Follow-up Seizures Reason Onset Date Comments Med Management 01/26/2025 Reason Comments Post-op Follow-up Patient is here for a 2 week post op from and IUD placement and Diagnostic Laparoscopic surgery. Patient states she's still in pain and sore. Patient states she's been bleeding since surgery. Reason Onset Date Comments Other 10/30/2024 [facility] Aleksey Ledesma MD - 03/16/2019 4:18 PM EDT Procedure Notes (unrecognize d section and content) Associated Order(s): EEG (STANDARD) [facility] EEG Report Reason for EEG: Seizures. [...] activity was seen. documented in this encounter Aleksey Bhardwaj MD - 03/16/2019 1:33 PM Mahi Beltrán, OT - 12/02/2020 1:44 PM Gauri Randhawa RADIO INTERFERENCE EXPERT RETRIEVAL SPECIALIST - 12/02/2020 9:27 AM EST Consult Notes (unrecognized section and content) Associated Order(s): IP CONSULT TO NEUROLOGY Neurology Inpatient Consult [facility] 03/16/2019 Patient: Reema Shah Date of : 1975 (43 y.o.) Referring Provider: Refer to consult order in electronic medical record PCP: Nedra Brewer CNP ASSESSMENT: 43 y.o. female presented to [facility] on 03/16/2019 with seizures. PLAN: [...] later changed to 500 mg twice a days. This was eventually discontinued February 24, 2019 because of toxicity. She follows with Dr. Gillette from [facility]. She was also using Keppra 750 mg [...] to 1000 mg twice a day. 3. [place] seizure precautions. 4. Monitor frequency alcohol seizures. [...] Portions of this chart was created using [employer] voice recognition software. Occasional wrong-word or sound-like substitutions may have occurred due to inherent limitations of the voice recognition software. Please read the chart carefully and recognize, using context, where the substitutions have occurred. Seizure: Resolved Etiology: Pre-existing epilepsy Testing: CT Head, EEG Labs: CBC, CMP Anti-epileptic Medication: Keppra 1 g twice daily. Seizure Precautions Activity Restrictions: Include NO driving, operating heavy machinery, work at heights, work with hazardous materials/tools, bathing/swimming alone or babysitting for a minimum of 6 months. The patient is NOT to resume any of these activities until released by a physician. Eventual Outpatient Follow-up: Dr. Gillette in 3-4 weeks. Answered questions and rediscussed plan at length with Patient. DIAGNOSTIC TESTING SUMMARY: Resulted Testing: (MRI/CT/XR, EEG, EMG, CSF, Cardiac, Labs) SUBJECTIVE: Chief Complaint/Reason for Consult: Seizures. Informant(s): Patient History of Present Illness: Reema Shah is a 43 y.o. female who was admitted because of seizures. Patient was admitted with tremors affecting both upper extremity. She has chronic intermittent twitching of different limbs and face. She described accidentally falling down and hitting the left parietal area. No loss of consciousness or confusion. No dizziness or palpitation. Her last seizure occurred in February 24, 2019. This occurred after she was discharged from [facility] where her Depakote was discontinued [...] pertinent positives and negatives documented in the History of Present Illness (HPI). History: Past Medical History: Diagnosis Date Acquired thrombocytopenia ([facility]) [facility]/Lopez Shaikh Acute kidney injury (HCC) 05/22/2018 [facility]/Jonatan Chiu DO Anxiety Calcaneal spur of right foot 2016 Documented on x-ray Chronic kidney disease, stage III (moderate) ([facility]) 2000 Congestive heart failure (CHF) ([facility]) [facility]Lopez Shaikh Depression Epilepsy ([facility]) 08/06/2011 [facility]- Dr. Chopra Epilepsy ([facility]) 1993 Facet degeneration of lumbar region 10/14/2018 [facility]/Jono ALEXIS, ulius Mild facet degenerative changes seen in the lower lumbar spine Fatty liver [facility]/Joe Mendieta MD Mild fibrofatty changes of the liver Fluid collection (edema) in the arms, legs, hands and feet 03/09/2018 Dr valentina Chopra Gastritis determined by endoscopy 12/29/2016 Dr. GonzalezTrfuhl-Uskctkdkv-lehmcozxuhlqo nonbleeding with biopsy Hepatic steatosis [facility]/Heidy Jara MD Mild Hiatal hernia 12/29/[address] oLbo grade 4 Hypercholesterolemia [facility]/Jonatan Chiu DO Hypertension 2000 2000-present Insomnia [facility]/Lopez Shaikh Kidney stone [facility]Lopez Sha[facility] Lung nodule 12/15/2017 0.5 cm pleural based nodule in right middle lobe. Mild linear atelectasis Mitral valve prolapse [facility]Lopez Shaikh Motor seizure ([facility]) 03/16/2019 INFO GAINED FROM: /CONFUCIANIST ED VISIT --- BLAKE STEELECAREN Rectus diastasis [facility]/Heidy Jara MD Present with small wide necked perumbical ventral containing fat. Second degree burn of foot 04/23/2018 Right Foot - [facility] Sleep apnea Stroke (HCC) 2001 mild Tremor Past Surgical History: Procedure Laterality Date Conner pH capsule placement 02/01/2017 Dr. Lobo BREAST REDUCTION 2000 bilateral EGD 12/29/2016 [facility] Central-grade 4 hiatal hernia-nonperforating gastritis ESOPHAGEAL MANOMETRY 02/01/2017 HERNIA REPAIR 06/11/2017 Dr Richards INTRAUTERINE DEVICE INSERTION 02/15/2015 Dr. Pennie Meyers OBGYN Laparoscopic LINX sphincter augmentation with cruroplasty 06/11/2017 Dr. Lobo WISDOM TOOTH EXTRACTION Social History Socioeconomic History Marital status: Spouse name: Not on file Number of children: Not on file Years of education: Not on file Highest education level: Not on file Occupational History Not on file Social Needs Financial resource strain: Not on file Food insecurity: Worry: Not on file Inability: Not on file Transportation needs: Medical: Not on file Non-medical: Not on file Tobacco Use Smoking status: Never Smoker Smokeless tobacco: Never Used Substance and Sexual Activity Alcohol use: No Drug use: No Sexual activity: Not on file Lifestyle Physical activity: Days per week: Not on file Minutes per session: Not on file Stress: Not on file Relationships Social connections: Talks on phone: Not on file Gets together: Not on file Attends mu-ism service: Not on file Active member of club or organization: Not on file Attends meetings of clubs or organizations: Not on file Relationship status: Not on file Other Topics Concern Not on file Social History Narrative Not on file Family History Problem Relation Age of Onset Dementia Mother Hypertension Mother Heart disease Mother Diabetes Mother Type 2 Stroke Mother Heart failure Mother Seizures Mother Parkinson's Mother Thyroid disease Father Hypertension Father Hypothyroidism Father GI problems Father Seizures Sister Hypertension Sister Heart disease Sister Hypothyroidism Sister Anxiety Sister Sickle cell anemia Other No Known Problems Brother Asthma Sister Hypertension Sister Additional History Comments: None Allergies: [...] mouth 2 (two) times a day . 11/22/18 11/22/19 Dimas Brooke MD famotidine (PEPCID) 40 MG tablet [...] (40 mg total) by mouth daily. 05/19/18 05/19/19 Dimas Brooke MD potassium chloride (MICRO-K) 10 MEQ CR capsule TAKE 1 CAPSULE BY MOUTH TWICE A DAY 12/26/18 Ivy Parrish PA-C TROKENDI XR 100 mg Cp24 CAPSULE Take 1 capsule by mouth daily. 05/02/18 Historical Provider, venlafaxine (EFFEXOR) 37.5 MG tablet Take 37.5 mg by mouth every morning. 08/03/16 Historical Provider, HOSPITAL Infusions: HOSPITAL Scheduled Medications: busPIRone 5 mg Oral Daily dicyclomine 10 mg Oral 4x daily doxazosin 2 mg Oral BID enoxaparin (LOVENOX) injection 40 mg Subcutaneous Daily famotidine 20 mg Oral BID levETIRAcetam 1,000 mg Oral BID lisinopril 10 mg Oral Daily mirtazapine 15 mg Oral Nightly potassium chloride 20 mEq Oral Daily venlafaxine 37.5 mg Oral [facility] PRN Medications: senna OBJECTIVE: Physical Examination: BP 138/79 Pulse 73 Temp 98.6 F (37 C) (Oral) Resp 14 Ht 4' 8 Wt 68.5 kg (151 lb) SpO2 97% BMI 33.85 kg/m Patient is awake and alert. Normal development [...] normal. Short stature. documented in this encounter Occupational Therapy OCCUPATIONAL THERAPY EVALUATION NOTE Dx: Fall Skilled Therapy Needs After Discharge Anticipate Resolution of Current Assessment Limitations Including: Mechanical Barriers, Social Support Are Skilled Therapy Services Needed After Discharge: Yes Intensity of Skilled Therapy: Up to 5 days per week Anticipated Duration of Skilled Therapy: Duration 10 - 30 days DME Recommendation: To be determined at next level of care Rehab Potential: Good Outcomes Measures Prior Function Daily Activity: Raw Score: 20 Prior Function Daily Activity % Impaired: 38.32% functionally impaired AM-PAC Daily Activity: Raw Score: 18 AM-PAC Daily Activity % Impaired: 46.65% functionally impaired Occupational Therapy Assessment The patient's current functional participation deficits are feeding, grooming, UE dressing, LE dressing, bathing, toileting, functional mobility. This reduced independence will limit their life roles of premorbid level individual. The patient's co morbidities do significantly affect patient performance in the above activities and roles. The performance deficits are a result of musculoskeletal, neurological impairment(s) in generalized debility including acitvity tolerance, pain, strength, dexterity, coordination, insight, safety, and knowledge deficit. The patient's family / caregiver support is a internet cafe manager for return to prior level of function. The patient's compliance is a internet cafe manager to return to prior level of function. During the assessment, minimal to moderate modification of task was required and several treatment options were identified in the plan of care. This consultation required expanded review of the medical and therapy history. Activity Tolerance Activity Tolerance: Tolerates 10 - 20 min activity with multiple rests Therapy Precautions Orthotic Devices: No Weight Bearing Status: WFL General Rehab Precautions: (seizure) Cognition Overall Cognitive Status: Within Functional Limits Arousal/Alertness: Appropriate responses to stimuli Orientation Level: Oriented X4 Executive functioning: Insight Safety Judgment: Decreased awareness of need for safety Attention: Easily distracted Hearing Status: WFL Social Interaction: WFL UE Function ROM is WFL Pt demo difficulty with all fine motor tasks due to significant tremors ADL/IADL Grooming : Stand by assistance UE Dressing: Min LE Dressing: Stand by assistance Bed Mobility Supine to Sit: Stand by assistance Sit to Supine: Min Functional Transfers Sit to Stand: Contact guard Home Living Type of Home: Trailer Home Layout: Stairs to enter with rails(5 MOHINDER) Bathroom Shower/Tub: Tub/shower unit Bathroom Toilet: Standard Bathroom Equipment: Shower chair Bathroom Accessibility: (Walker does not fit through bathroom door) Home Equipment: Wheeled Walker Prior Level of Function Level of [place]: Needs assistance with ADLs, Needs assistance with homemaking Lives With: Family(Cousin and cousin's daughter) Receives Help From: Family ADL Assistance: Needs assistance Homemaking Assistance: Needs assistance Comments: Pt reports mod I with transfers using FWW. Requires some assist with all ADLs, cousin performs all IADLs. Past Medical History: Diagnosis Date Acquired thrombocytopenia ([facility]) [facility] Acute kidney injury (HCC) 05/22/2018 [facility]/Jonatan Chiu DO Anxiety Arm abrasion 06/19/2019 INFO GAINED FROM: /CONFUCIANIST ED VISIT NOTE --- AC GAO MD Calcaneal spur of right foot 2016 Documented on x-ray CKD (chronic kidney disease) Congestive heart failure (CHF) ([facility]) [facility]Lopez Sha[facility] Contusion, hip 06/19/2019 INFO GAINED FROM: /CONFUCIANIST ED VISIT NOTE --- AC GAO MD Depression Epilepsy ([facility]) 08/06/2011 [facility]- Dr. Chopra Epilepsy ([facility]) 1994 Facet degeneration of lumbar region 10/14/2018 [facility]Jono ALEXIS, Moi Mild facet degenerative changes seen in the lower lumbar spine Fatty liver [facility]/Joe Mendieta MD Mild fibrofatty changes of the liver Fluid collection (edema) in the arms, legs, hands and feet 03/09/2018 Dr valentina Chopra Gastritis determined by endoscopy 12/29/2016 Dr. GonzalezSkvxpt-Muubtbhmu-yteuxelzwgpyv nonbleeding with biopsy 1 para 1 Hepatic steatosis [facility]/Heidy Jara MD Mild Hiatal hernia 12/29/[address] Lobo grade 4 Hypercholesterolemia [facility]/Jonatan Chiu DO Hypertension 2000 2000-present Insomnia [facility]/Lopez Shaikh Kidney stone [facility] Laceration of head 06/19/2019 INFO GAINED FROM: /CONFUCIANIST ED VISIT NOTE --- AC GAO MD Lung nodule 12/15/2017 0.5 cm pleural based nodule in right middle lobe. Mild linear atelectasis Mitral valve prolapse [facility] Motor seizure (HCC) 03/16/2019 INFO GAINED FROM: /CONFUCIANIST ED VISIT --- BLAKE STEELE,CAREN Rectus diastasis [facility]Heidy Jara MD Present with small wide necked perumbical ventral containing fat. Second degree burn of foot 04/23/2018 Right Foot - [facility] Sleep apnea Stroke (HCC) 2000 mild Tremor Past Surgical History: Procedure Laterality Date Conner pH capsule placement 02/01/2017 Dr. Lobo BREAST REDUCTION 2000 bilateral EGD 12/29/2016 Dr. [facility]-grade 4 hiatal hernia-nonperforating gastritis ESOPHAGEAL MANOMETRY 02/01/2017 HERNIA REPAIR 06/11/2017 Dr Richards INTRAUTERINE DEVICE INSERTION 02/15/2015 Dr. Pennie Meyers OBGYN Laparoscopic LINX sphincter augmentation with cruroplasty 06/11/2017 Dr. Lobo WISDOM TOOTH EXTRACTION OCCUPATIONAL THERAPY TREATMENT NOTE Total Treatment Time (Total Session Time): 29 Minutes Timed Code Treatment Minutes: 10 Minutes Self-Care / Home Management ADL/IADL Skilled Intervention: Pt washes face at bed level after setup. Seated EOB, pt dons bilateral socks with increased time and SBA using figure 4 technique. Pt requires min assist to don clean hospital gown in order to manage buttons due to tremors in BUE. Therapeutic Activities Bed Mobility Skilled Intervention: Pt demo supine <> sit EOB with HOB slightly elevated with min assist for trunk elevation and increased time to complete. Seated EOB, pt demo fair+ dynamic sitting balance without UE support while performing ADL tasks with SBA. Returning to supine, pt requires min assist to elevate LEs all the way over EOB. Functional Transfers Skilled Intervention: CGA for sit <> stand from EOB to FWW and taking a few steps within room. For complete objective data, detailed plan of care and patient education refer to: OT EVALUATION flow sheet, OT TREATMENT flow sheet, patient Plan of Care, Plan of Care progress note, and Patient Education. This note stands as the current Discharge Summary upon patient discharge from the hospital or completion of Occupational Therapy Plan of Care. Associated Order(s): IP CONSULT TO CARE MANAGEMENT COMPLEX DISCHARGE Date: 12/02/2020 Time: 9:27 AM Per notes from Becki, emergency room social economist, patient needs placement and would like an [place] facility. Becki spoke with Marifer with [facility] and they are willing to review the patient. Facility linked to in-basket. Patient Name: Reema Shah Date of : 1975 Sex: Female Discharge Planning Living Arrangements: Family members Caregiver Identified: Yes Caregiver's Name: Maria M Vicente Support Systems: Family members Assistance Needed: Moderate Type of Residence: Private residence Prior to Admission Home Care Services: No Patient expects to be discharged to:: [facility] Facility Does the patient need discharge transport arranged?: Yes Has discharge transport been arranged?: No Current Home Equipment: Walker Anticipated Facility Type: [facility] facility Anticipated Discharge Plan Anticipated Facility Type: [facility] facility [facility] Disposition D/C Disposition: [facility] Facility Agency/Destination: [facility] Options Reviewed: Explained services/benefits Reason for Choice: Patient/Family preference documented in this encounter Mirtha Crocker RN - 12/26/2018 9:36 AM EDT Nursing Notes (unrecognized section and content) Resting EKG NSR. Patient tolerated Dobutamine well. No c/o CP or SOB. in this encounter Veronika Hernandez CNP - 12/01/2020 4:31 PM EST H&P Notes (unrecognized sect ion and content) [facility] Medicine Inpatient H&P 12/01/2020 Veronika Hernandez CNP [facility] Patient: Reema Shah Date of : 1975 (45 y.o.) PCP: Nedra Brewer CNP Assessment Reema Shah 45 y.o. female with history of Past Medical History: Diagnosis Date Acquired thrombocytopenia (HCC) [facility] Acute kidney injury (HCC) 05/22/2018 [facility]/Jonatan Chiu DO Anxiety Arm abrasion 06/19/2019 INFO GAINED FROM: /CONFUCIANIST ED VISIT NOTE --- AC GAO MD Calcaneal spur of right foot 2017 Documented on x-ray CKD (chronic kidney disease) Congestive heart failure (CHF) ([facility]) [facility] Contusion, hip 06/19/2019 INFO GAINED FROM: /CONFUCIANIST ED VISIT NOTE --- AC GAO MD Depression Epilepsy ([facility]) 08/06/2011 [facility]- Dr. Chopra Epilepsy ([facility]) 1994 Facet degeneration of lumbar region 10/14/2018 [facility]/Jono ALEXIS, Moi Mild facet degenerative changes seen in the lower lumbar spine Fatty liver [facility]/Joe Mendieta MD Mild fibrofatty changes of the liver Fluid collection (edema) in the arms, legs, hands and feet 03/09/2018 Dr valentina Chopra Gastritis determined by endoscopy 12/29/2016 Dr. GonzalezLppugw-Szufvptjm-urbfkdtjayxzw nonbleeding with biopsy 1 para 1 Hepatic steatosis [facility]/Heidy Jara MD Mild Hiatal hernia 12/29/[address] Lobo grade 4 Hypercholesterolemia [facility]/Jonatan Chiu DO Hypertension 2000 2000-present Insomnia [facility] Kidney stone [facility] Laceration of head 06/19/2019 INFO GAINED FROM: /CONFUCIANIST ED VISIT NOTE --- AC GAO MD Lung nodule 12/15/2017 0.5 cm pleural based nodule in right middle lobe. Mild linear atelectasis Mitral valve prolapse [facility] Motor seizure ([facility]) 03/16/2019 INFO GAINED FROM: /CONFUCIANIST ED VISIT --- BLAKE STEELE,CAREN Rectus diastasis [facility]/Heidy Jara MD Present with small wide necked perumbical ventral containing fat. Second degree burn of foot 04/23/2018 Right Foot - [facility] Sleep apnea Stroke ([facility]) 2000 mild Tremor Principal Problem: Fall Active Problems: Weakness Closed undisplaced fracture of nasal bone, initial encounter Hypokalemia Seizures ([facility]) Essential hypertension Acute kidney injury superimposed on CKD ([facility]) Hypothyroidism GERD (gastroesophageal reflux disease) Thrombocytopenia ([facility]) Plan: 1. Fall of Toilet & Weakness: admit to observation with tele. VS q 4 hr. PT/OT consult. Pt states that she uses a walker to ambulate. Fall Precautions. 2. Closed Non-Displaced Fx of Nasal Bone: PRN Tylenol, Toradol IV 15 mg q 6 hr x3 doses. 3. Hypokalemia: K+ on admit 3.1. Replaced with 40 meq KCL PO in ED. Labs in AM 4. Seizures: cont home Depakote ER 250 mg in AM and 500 mg @ HS, and Keppra BID. Got 1000 mg load in ED. Primidone 50 mg BID. Seizure precautions. Neuro checks q 4 hr. 5. HTN: Cont home Norvasc 10 mg every day, Cardura 4 mg at bedtime, hydrochlorothiazide 12.5 mg every day 6. RAÚL on CKD III: BUN/Crea: 15/1.52 (14/1.21, 17/1.34). Is and Os q 8 hr. Daily weight. Avoid nephrotoxic agents. 7. Depression: Cont Buspar, Ativan in AM and PM, and Zoloft 8. Hypothyroidism: cont home levothyroxine. 03/16/2019 TSH 2.12. TSH/T4: P 9. Thrombocytopenia: POA. labs in AM. Platelets on admission 137. Platelet goal >50. Labs in AM. 10. DVT Ppx: Heparin sq & SCDs SUBJECTIVE: Chief Complaint: S/P Fall of Toilet/ Weakness History of Presenting Illness: Reema Shah is a 45 y.o. female presenting from her cousin's house with complaints of falling off the toilet and hitting her face today. She is alone at the time of exam and is a decent historian. Ms. Shah states told the ED staff that she ran out of both of her seizure medications this morning, but has had an increased tremor over the past two days. When this provider asked the Pt when her last seizure was, she stated that it was a couple of years ago. Ms. Shah states that her seizures are normally grand mal or focal. Today at home, she was taken to the toilet, and she fell off, hitting her head and neck. She complained of pain at the top of her head and some neck pain. Imaging was obtained that revealed closed non-discplaced fx of the Rt and left nasal bones. No acute findings on CTH or CT Cervical Spine. ED cleared her C-Spine. Ms. Shah states that she does have a headache and face pain that is sharp at times and at its worst it is a 10/10. She states that she understands that she can probably only take tylenol with her allergies. She denies nausea, vomiting, diarrhea, fever, chills, SOB, and chest pain. Ms. Shah was going to be discharged, but her cousin told the ED staff that the Pt had been discharged from a facility in [place] to live with her cousin. Per the Pt's cousin, the Pt has been unable to care for herself. She cannot go to the bathroom on her own, prepare her own food, or do anything for herself. The Pt's cousin says that she cannot take care of the Pt at this time. Both the Pt and her cousin think it would be best for her to be admitted to a NH. They would like her to go to a facility in [place]. Ms. Shah requested that the Dumpling Machine Operator try anywhere else in [place] that's not assisted living. Contacted [place] who state they will not be able to consider Pt until tomorrow. Also contacted [facility] and spoke with Marifer Hampton ([phone]) who reports they do have bed availability. The Pt's INTERNET MARKETING SPECIALIST, Charlee Richey, contacted Social Work today and stated that she was concerned about the Pt and is trying to help with placement. Mayte states that she strongly advocates that Pt be admitted somewhere. Mayte reports that if anything is needed to contact her at her office [phone] and connect with option 1 to leave a message. Mayte also provided her personal cell phone, [phone], in the event that she is needed immediately. Mayte asks that this number not be provided to the patient or patient's family but encourages social work to reach out to her with any immediate needs/questions. Ms. Shah is being admitted to observation for further evaluation and help with placement. Review of Systems: 10 systems reviewed and negative other than noted in HPI History: Past Medical History: Diagnosis Date Acquired thrombocytopenia (HCC) [facility] Acute kidney injury (HCC) 05/22/2018 [facility]/Jonatan Chiu DO Anxiety Arm abrasion 06/19/2019 INFO GAINED FROM: /CONFUCIANIST ED VISIT NOTE --- AC GAO MD Calcaneal spur of right foot 2016 Documented on x-ray CKD (chronic kidney disease) Congestive heart failure (CHF) ([facility]) [facility] Contusion, hip 06/19/2019 INFO GAINED FROM: /CONFUCIANIST ED VISIT NOTE --- AC GAO MD Depression Epilepsy ([facility]) 08/06/2011 [facility]- Dr. Chopra Epilepsy ([facility]) 1993 Facet degeneration of lumbar region 10/14/2018 [facility]/Jono ALEXIS, Moi Mild facet degenerative changes seen in the lower lumbar spine Fatty liver [facility]/Joe Menideta MD Mild fibrofatty changes of the liver Fluid collection (edema) in the arms, legs, hands and feet 03/09/2018 Dr valentina Chopra Gastritis determined by endoscopy 12/29/2016 Dr. LeeCuezdj-Qkxsqcztc-ujsbawdyhcmyr nonbleeding with biopsy 1 para 1 Hepatic steatosis [facility]/Heidy Jara MD Mild Hiatal hernia 12/29/[address] Lobo grade 4 Hypercholesterolemia [facility]/Jonatan Chiu DO Hypertension 2000 2000-present Insomnia [facility] Kidney stone [facility] Laceration of head 06/19/2019 INFO GAINED FROM: /CONFUCIANIST ED VISIT NOTE --- AC GAO MD Lung nodule 12/15/2017 0.5 cm pleural based nodule in right middle lobe. Mild linear atelectasis Mitral valve prolapse [facility] Motor seizure ([facility]) 03/16/2019 INFO GAINED FROM: [facility] ED VISIT --- GILMAN DO,CAREN Rectus diastasis [facility]/Heidy Jara MD Present with small wide necked perumbical ventral containing fat. Second degree burn of foot 04/23/2018 Right Foot - [facility] Sleep apnea Stroke ([facility]) 2000 mild Tremor Past Surgical History: Procedure Laterality Date Conner pH capsule placement 02/01/2017 Dr. Lobo BREAST REDUCTION 1999 bilateral [facility]-nonperforating gastritis ESOPHAGEAL MANOMETRY 02/01/2017 HERNIA REPAIR 06/11/2017 Dr Richards INTRAUTERINE DEVICE INSERTION 02/15/2015 Dr. Pennie CARTWRIGHT Laparoscopic LINX sphincter augmentation with cruroplasty 06/11/2017 Dr. Lobo WISDOM TOOTH EXTRACTION Family History Problem Relation Age of Onset Dementia Mother Hypertension Mother Heart disease Mother Diabetes Mother Type 2 Stroke Mother Heart failure Mother Seizures Mother Parkinson's Mother Thyroid disease Father Hypertension Father Hypothyroidism Father GI problems Father Seizures Sister Hypertension Sister Heart disease Sister Hypothyroidism Sister Anxiety Sister Sickle cell anemia Other No Known Problems Brother Asthma Sister Hypertension Sister Social History Tobacco Use Smoking Status Never Smoker Smokeless Tobacco Never Used Family and Social History reviewed. Pt was previously . She has one child that is not involved in her care. 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 She was currently living with her cousin in [place]. Allergies: Codeine, Dilaudid [hydromorphone], Erythromycin, Iodine and iodide containing products, Morphine sulfate, Neurontin [gabapentin], Other, Phenergan [promethazine], Tramadol, Vicodin [hydrocodone-acetaminophen], Zofran [ondansetron hcl], and Penicillins Home Medications: Outpatient Medications as of 12/01/2020 Medication Sig albuterol 90 mcg/actuation inhaler Inhale 2 puffs every 6 (six) hours as needed for shortness of breath . allopurinoL (ZYLOPRIM) 300 MG tablet Take 300 mg by mouth daily . amLODIPine (NORVASC) 10 MG tablet Take 10 mg by mouth daily . atorvastatin (LIPITOR) 20 MG tablet Take 20 mg by mouth daily . busPIRone (BUSPAR) 10 MG tablet Take 10 mg by mouth 3 (three) times a day . divalproex (DEPAKOTE ER) 500 MG 24 hr tablet Take 500 mg by mouth at bedtime . doxazosin (CARDURA) 4 MG tablet Take 1 (one) tablet (4 mg total) by mouth nightly . ergocalciferol (ERGOCALCIFEROL) 1,250 mcg (50,000 unit) capsule Take 50,000 Units by mouth once a week Every . hydroCHLOROthiazide (MICROZIDE) 12.5 mg capsule Take 12.5 mg by mouth daily . levETIRAcetam (KEPPRA) 500 MG tablet Take 500 mg by mouth 2 (two) times a day . levothyroxine (SYNTHROID, LEVOTHROID) 125 MCG tablet Take 125 mcg by mouth every morning . LORazepam (ATIVAN) 1 MG tablet Take 2 mg by mouth every morning . meclizine (ANTIVERT) 25 mg tablet Take 25 mg by mouth 3 (three) times a day as needed for nausea . potassium chloride SA (K-DUR,KLOR-CON) 10 MEQ tablet Take 10 mEq by mouth 2 (two) times a day . primidone (MYSOLINE) 50 MG tablet Take 50 mg by mouth 2 (two) times a day . sertraline (ZOLOFT) 100 MG tablet Take 100 mg by mouth nightly Take with 25 mg tablet for total of 125 mg daily . OBJECTIVE: Physical Examination: BP 109/73 Pulse 97 Temp 99.3 F (37.4 C) (Oral) Resp 14 Ht 4' 9 Wt 75 kg (165 lb 5.5 oz) SpO2 97% BMI 35.78 kg/m General Appearance: Alert, well appearing, and in no acute distress. HEENT: Head - Normocephalic, dried blood mouth, deborah nares. Top of head is tender to palpation. Eyes - ISMAEL- 3 mm bilaterally and EOMI. Ears - normal external appearance, hearing intact. Nose - normal, no erythema. Neck: Supple, trachea midline. Cardiovascular: S1, S2 normal. Tele: RSR, No pedal edema appreciated.. Respiratory: Lungs clear to auscultation, no wheezes, rales or rhonchi heard. Abdomen: Soft, rounded, non-tender, normal bowel sounds, non-distended, no masses or organomegaly appreciated. Neurological: Grossly normal motor and sensory exam. No focal deficits. Generalized weakness in deborah LE. Pt uses a walker to ambulate Musculoskeletal: No joint tenderness, deformity or swelling. Pulses x4 +2. Left big toe has blood from where nail was torn. Skin: Normal coloration and turgor. No rashes. Psych: Alert, oriented x 3. Normal mood and affect. Laboratory and Additional Data Reviewed: Results/Medications Reviewed 12/01/20 9:55 PM: Results from last 7 days Lab Units 12/01/20 1205 SODIUM mmol/L 136 POTASSIUM mmol/L 3.1* CHLORIDE mmol/L 101 BUN mg/dL 15 CREATININE mg/dL 1.52* GLUCOSE mg/dL 111* Results from last 7 days Lab Units 12/01/20 1205 WBC K/mcL 7.44 HGB g/dL 14.0 HCT % 40.7 PLT K/mcL 137* Results from last 7 days Lab Units 12/01/20 1205 ALK PHOS U/L 72 BILIRUBIN TOTAL mg/dL 0.5 BILIRUBIN DIRECT mg/dL 0.1 TOTAL PROTEIN g/dL 7.2 ALTR U/L 21 AST U/L 49* CULTURES: Reviewed 9:55 PM IMAGING: Reviewed 9:55 PM documented in this encounter Lona Moore PSA - 12/01/2020 6:20 PM Enrique Simon RN - 12/01/2020 6:11 PM Ruth Mcfarland RN - 12/01/2020 6:08 PM Lona Parikh PSA - 12/01/2020 3:49 PM EST ED Notes (unrecognized secti on and content) THIS PSA IS TRANSPORTING PT TO ROOM 3720 TALKING ON PHONE UPDATED ROOM ASSIGNED. ATTEMPT MADE TO CALL REPORT, NO ANSWER AT NURSES STATION OR ON CHARGE PHONE THIS PSA HELPED PT ONTO A BEDPAN AND OFF. PT REPORTS C COLLAR REMOVED BY PROVIDER. PT MOVES ALL EXTREMITIES. NO C/O NUMBNESS OR TINGLING THIS PSA ANSWERED CALL LIGHT. PT WANTED A BLANKET. PROVIDED A WARM ONE. Pt doing well. Declined needs at this time. MEDICATED WITH ATIVAN AND KEPPRA. TREMORS AND JERKING MOVEMENTS RESOLVED. PT REMAINS ALERT AND ORIENTED, TALKATIVE. C/O HEADACHE AND SOME NECK DISCOMFORT. [facility] ED Attending Note: NAME: Reema Shah 45 y.o. CSN: [id number] PCP: Nedra Brewer CNP History: Chief Complaint: Seizures HPI: The history was obtained from the patient. Reema is a 45 y.o. female who presents with a chief complaint of Seizures. Patient 45-year-old female presents with seizures Patient ran out of seizure medication this morning, has been having increased tremors for the last 2 days, alert and oriented but has possibly had seizure overnight, had some evidence of bleeding in the mouth and nose. Brought to the toilet, and fell off hitting head and neck, complaining of head neck pain, head pain mostly on the top of the head No fevers no chest pain or shortness PMHx: Past Medical History: Diagnosis Date Acquired thrombocytopenia ([facility]) [facility] Acute kidney injury (HCC) 05/22/2018 [facility]/Jonatan Chiu DO Anxiety Arm abrasion 06/19/2019 INFO GAINED FROM: /CONFUCIANIST ED VISIT NOTE --- AC GAO MD Calcaneal spur of right foot 2016 Documented on x-ray Chronic kidney disease, stage III (moderate) 2000 Congestive heart failure (CHF) ([facility]) [facility] Contusion, hip 06/19/2019 INFO GAINED FROM: /CONFUCIANIST ED VISIT NOTE --- AC GAO MD Depression Epilepsy ([facility]) 08/06/2011 [facility]- [facility]. Chopra Epilepsy ([facility]) 1993 Facet degeneration of lumbar region 10/14/2018 [facility]Jono ALEXIS, Saulius Mild facet degenerative changes seen in the lower lumbar spine Fatty liver [facility]/Joe Mendieta MD Mild fibrofatty changes of the liver Fluid collection (edema) in the arms, legs, hands and feet 03/09/2018 Dr valentina Chopra Gastritis determined by endoscopy 12/29/2016 Dr. GonzalezQpajtq-Aibsmyysb-oaqazoswvhiva nonbleeding with biopsy Hepatic steatosis [facility]/Heidy Jara MD Mild Hiatal hernia 12/29/[address] Lobo grade 4 Hypercholesterolemia [facility]/Jonatan Chiu DO Hypertension 2001 2001-present Insomnia [facility] Kidney stone [facility] Laceration of head 06/19/2019 INFO GAINED FROM: /CONFUCIANIST ED VISIT NOTE --- MENG ALEXISAC Lung nodule 12/15/2017 0.5 cm pleural based nodule in right middle lobe. Mild linear atelectasis Mitral valve prolapse [facility] Motor seizure (HCC) 03/16/2019 INFO GAINED FROM: /CONFUCIANIST ED VISIT --- BLAKE STEELE,CAREN Rectus diastasis [facility]/Heidy Jara MD Present with small wide necked perumbical ventral containing fat. Second degree burn of foot 04/23/2018 Right Foot - [facility] Sleep apnea Stroke (HCC) 2000 mild Tremor PMSx: Past Surgical History: Procedure Laterality Date Conner pH capsule placement 02/01/2017 Dr. Lobo BREAST REDUCTION 1999 bilateral [facility] 12[facility] her[facility]-nonperforating gastritis ESOPHAGEAL MANOMETRY 02/01/2017 HERNIA REPAIR 06/11/2017 Dr Richards INTRAUTERINE DEVICE INSERTION 02/15/2015 Dr. Pennie Meyers OBGYN Laparoscopic LINX sphincter augmentation with cruroplasty 06/11/2017 Dr. Lobo WISDOM TOOTH EXTRACTION FAM. Hx: Family History Problem Relation Age of Onset Dementia Mother Hypertension Mother Heart disease Mother Diabetes Mother Type 2 Stroke Mother Heart failure Mother Seizures Mother Parkinson's Mother Thyroid disease Father Hypertension Father Hypothyroidism Father GI problems Father Seizures Sister Hypertension Sister Heart disease Sister Hypothyroidism Sister Anxiety Sister Sickle cell anemia Other No Known Problems Brother Asthma Sister Hypertension Sister SOC. Hx: Social History Socioeconomic History Marital status: Spouse name: Not on file Number of children: Not on file Years of education: Not on file Highest education level: Not on file Occupational History Not on file Social Needs Financial resource strain: Not on file Food insecurity Worry: Not on file Inability: Not on file Transportation needs Medical: Not on file Non-medical: Not on file Tobacco Use Smoking status: Never Smoker Smokeless tobacco: Never Used Substance and Sexual Activity Alcohol use: No Drug use: No Sexual activity: Not on file Lifestyle Physical activity Days per week: Not on file Minutes per session: Not on file Stress: Not on file Relationships Social connections Talks on phone: Not on file Gets together: Not on file Attends mu-ism service: Not on file Active member of club or organization: Not on file Attends meetings of clubs or organizations: Not on file Relationship status: Not on file Other Topics Concern Not on file Social History Narrative Not on file MEDs: Previous Medications Medication Sig acetaminophen (TYLENOL) 325 MG tablet Take 650 mg by mouth every 4 (four) hours as needed for pain . albuterol 90 mcg/actuation inhaler Inhale 2 puffs every 6 (six) hours as needed for shortness of breath . allopurinoL (ZYLOPRIM) 300 MG tablet Take 300 mg by mouth daily . amLODIPine (NORVASC) 10 MG tablet Take 10 mg by mouth daily . atorvastatin (LIPITOR) 20 MG tablet Take 20 mg by mouth daily . busPIRone (BUSPAR) 10 MG tablet Take 10 mg by mouth 3 (three) times a day . divalproex (DEPAKOTE ER) 250 MG 24 hr tablet Take 250 mg by mouth every morning . divalproex (DEPAKOTE ER) 500 MG 24 hr tablet Take 500 mg by mouth at bedtime . ergocalciferol (ERGOCALCIFEROL) 1,250 mcg (50,000 unit) capsule Take 50,000 Units by mouth once a week Every . hydroCHLOROthiazide (MICROZIDE) 12.5 mg capsule Take 12.5 mg by mouth daily . levETIRAcetam (KEPPRA) 500 MG tablet Take 500 mg by mouth 2 (two) times a day . levothyroxine (SYNTHROID, LEVOTHROID) 125 MCG tablet Take 125 mcg by mouth every morning . LORazepam (ATIVAN) 1 MG tablet Take 1.5 mg by mouth at bedtime . LORazepam (ATIVAN) 1 MG tablet Take 2 mg by mouth every morning . meclizine (ANTIVERT) 25 mg tablet Take 25 mg by mouth 3 (three) times a day as needed for nausea . potassium chloride SA (K-DUR,KLOR-CON) 10 MEQ tablet Take 10 mEq by mouth 2 (two) times a day . primidone (MYSOLINE) 50 MG tablet Take 50 mg by mouth 2 (two) times a day . sertraline (ZOLOFT) 100 MG tablet Take 100 mg by mouth nightly Take with 25 mg tablet for total of 125 mg daily . sertraline (ZOLOFT) 25 MG tablet Take 25 mg by mouth nightly Take with 100 mg tablet for total of 125 mg daily . famotidine (PEPCID) 40 MG tablet TAKE 1 (ONE) TABLET (40 MG TOTAL) BY MOUTH DAILY. lisinopril (PRINIVIL,ZESTRIL) 10 MG tablet Take 1 (one) tablet (10 mg total) by mouth daily . mirtazapine (REMERON) 15 MG tablet TAKE 2 TABLET BY MOUTH EVERY DAY 2 TO 3 HOURS BEFORE BEDTIME TROKENDI XR 100 mg Cp24 CAPSULE Take 1 capsule by mouth daily. venlafaxine (EFFEXOR) 37.5 MG tablet Take 37.5 mg by mouth every morning. [DISCONTINUED] busPIRone (BUSPAR) 5 MG tablet Take 5 mg by mouth daily . [DISCONTINUED] doxazosin (CARDURA) 4 MG tablet Take 0.5 (one-half) tablet (2 mg total) by mouth 2 (two) times a day . [DISCONTINUED] levETIRAcetam (KEPPRA) 1000 MG tablet Take 1 (one) tablet (1,000 mg total) by mouth 2 (two) times a day . [DISCONTINUED] LORazepam (ATIVAN) 0.5 MG tablet Take 0.5 mg by mouth every 8 (eight) hours as needed for anxiety Previous Rx. dose . [DISCONTINUED] potassium chloride (MICRO-K) 10 MEQ CR capsule TAKE 1 CAPSULE BY MOUTH TWICE A DAY ALL: Allergies Allergen Reactions Codeine Other (See Comments) Vomiting Dilaudid [Hydromorphone] Erythromycin Unknown Iodine And Iodide Containing Products Patient denies Morphine Sulfate Other (See Comments) Vomiting Neurontin [Gabapentin] GI Intolerance Other Phenergan [Promethazine] Other (See Comments) Sick Tramadol Vicodin [Hydrocodone-Acetaminophen] Other (See Comments) Vomiting Zofran [Ondansetron Hcl] Other (See Comments) Vomiting Penicillins Rash PACU Vitals 12/01/20 1430 BP: Pulse: (!) 104 Resp: Temp: SpO2: 98% Review of Systems Constitutional: Negative for activity change and appetite change. HENT: Negative for congestion and sinus pain. Eyes: Negative for pain and visual disturbance. Respiratory: Negative for cough, chest tightness, shortness of breath and wheezing. Cardiovascular: Negative for chest pain and leg swelling. Gastrointestinal: Negative for abdominal pain, diarrhea, nausea and vomiting. Genitourinary: Negative for dysuria. Musculoskeletal: Negative for joint swelling. Skin: Negative for rash. Neurological: Positive for seizures. Negative for dizziness, weakness and numbness. All other systems reviewed and are negative. Physical Exam Vitals signs and nursing note reviewed. Constitutional: Appearance: Normal appearance. HENT: Head: Normocephalic and atraumatic. Right Ear: External ear normal. Left Ear: External ear normal. Nose: Nose normal. Comments: Dried blood in the mouth and bilateral naris Mouth/Throat: Mouth: Mucous membranes are moist. Eyes: Extraocular Movements: Extraocular movements intact. Conjunctiva/sclera: Conjunctivae normal. Pupils: Pupils are equal, round, and reactive to light. Neck: Musculoskeletal: Normal range of motion. Cardiovascular: Rate and Rhythm: Normal rate and regular rhythm. Pulses: Normal pulses. Heart sounds: Normal heart sounds. No murmur. No gallop. Pulmonary: Effort: Pulmonary effort is normal. Breath sounds: Normal breath sounds. No stridor. No wheezing, rhonchi or rales. Abdominal: General: There is no distension. Palpations: Abdomen is soft. Tenderness: There is no abdominal tenderness. Musculoskeletal: Normal range of motion. Right lower leg: No edema. Left lower leg: No edema. Comments: Tender palpation on the top of the head, and midline cervical spine, no tenderness palpation of her chest abdomen no remainder of her spine. Her left big toe, has some nail tearing from injury small amount of blood there. Skin: General: Skin is warm. Findings: No rash. Neurological: General: No focal deficit present. Mental Status: She is alert and oriented to person, place, and time. Mental status is at baseline. Comments: 5-5 strength in all extremities, she seems to have suppressible tremors, but her entire body is shaking, with irregular noncoordinated activities. Psychiatric: Mood and Affect: Mood normal. Laboratory & Radiological Imaging (if done): Recent Results (from the past 24 hour(s)) Chem 7 Collection Time: 12/01/20 12:05 PM Result Value Ref Range Sodium 136 135 - 145 mmol/L Potassium 3.1 (L) 3.5 - 5.1 mmol/L Chloride 101 98 - 108 mmol/L Bicarbonate 26 21 - 32 mmol/L Creatinine 1.52 (H) 0.40 - 1.10 mg/dL Glucose 111 (H) 65 - 99 mg/dL BUN 15 8 - 25 mg/dL eGFR 41 (L) >=60 mL/min/1.73 m2 BUN/Creatinine Ratio 9.9 (L) 10.0 - 20.0 Anion Gap 12 10 - 20 mmol/L CBC Auto Differential Collection Time: 12/01/20 12:05 PM Result Value Ref Range WBC 7.44 4.50 - 11.00 K/mcL RBC 4.67 4.00 - 5.20 M/mcL Hemoglobin 14.0 12.0 - 16.0 g/dL Hematocrit 40.7 36.0 - 46.0 % MCV 87.2 80.0 - 100.0 fL MCH 30.0 26.0 - 34.0 pg MCHC 34.4 31.0 - 37.0 g/dL Platelets 137 (L) 150 - 400 K/mcL RDW - CV 12.6 11.6 - 14.8 % MPV 10.5 9.4 - 12.4 fL Neutrophils 72.6 % Lymphocytes 18.1 % Monocytes 7.0 % Eosinophils 0.1 % Basophils 0.3 % IG Percent 1.90 % Neutrophils Abs 5.40 1.70 - 7.00 K/mcL Lymphocytes Abs 1.35 0.90 - 4.00 K/mcL Monocytes Abs 0.52 0.30 - 0.90 K/mcL Eosinophils Abs 0.01 0.00 - 0.50 K/mcL Basophils Abs 0.02 0.00 - 0.30 K/mcL IG Absolute 0.14 0.00 - 0.30 K/mcL Nucleated RBC 0.0 % Nucleated RBC Abs 0.00 0.00 - 0.00 K/mcL Hepatic Function Panel (LFT) Collection Time: 12/01/20 12:05 PM Result Value Ref Range Total Protein 7.2 6.0 - 8.0 g/dL Albumin 3.8 3.2 - 5.2 g/dL Total Bilirubin 0.5 0.0 - 1.3 mg/dL Bilirubin, Direct 0.1 0.0 - 0.4 mg/dL Alkaline Phosphatase 72 40 - 150 U/L AST 49 (H) 0 - 45 U/L ALT 21 14 - 65 U/L Gold Top Collection Time: 12/01/20 12:06 PM Result Value Ref Range Extra Tube Hold for add-ons. Light Blue Top Collection Time: 12/01/20 12:06 PM Result Value Ref Range Extra Tube Hold for add-ons. [place] Top Collection Time: 12/01/20 12:06 PM Result Value Ref Range Extra Tube Hold for add-ons. CT Cervical Spine Without Contrast Final Result 1. No acute bone abnormality. 2. Multilevel mild-moderate degenerative disc disease. Workstation ID: [id number] CT Maxillofacial Without Contrast Final Result 1. Normal CT appearance of the brain. 2. Nondisplaced fractures of the right and left nasal bones. 3. Left maxillary chronic sinusitis. Workstation ID: [id number] CT Head Or Brain Without Contrast Final Result 1. Normal CT appearance of the brain. 2. Nondisplaced fractures of the right and left nasal bones. 3. Left maxillary chronic sinusitis. Workstation ID: [id number] ED Course / Medical Decision Making: Unclear if these tremors are truly seizures, although does appear with the blood in her mouth and she may have had a seizure. She is run out of her Keppra and Ativan, will dose with Ativan and Keppra. I will refill her medications, get basic lab work head CT and neck CT CT face shows bilateral nasal bone fractures, her tremors calmed with Ativan and Keppra, Spoke with social work, the patient is unable to ambulate at this time, she keeps falling, they are having difficulty managing at home, she was recently discharged from the residential. And given this, plan to admit for placement as it Wednesday, social work has discussed with nursing homes case management can assist tomorrow for placement Clinical Impression: 1. Seizures (HCC) 2. Medication refill 3. Closed fracture of nasal bone, initial encounter Christiano Olivares MD [facility] Emergency Department (Please note that portions of this note have been completed with a voice recognition software. Efforts were made to correct any errors, but occasionally words are mis-transcribed.) Christiano Olivares MD 12/01/20 1525 Bed: 02 Expected date: 12/01/20 Expected time: 11:42 AM Means of arrival: Ambulance Comments: justin PT HAS HISTORY OF SEIZURE DISORDER, RAN OUT OF MEDICATION LAST PM. HAS TREMORS USUALLY BUT MARKEDLY WORSE TODAY. CONTINOUS TREMORING AND JERKING OF WHOE BODY NON RHYMIC IN NATURE. PT AWAKE AND ALERT AND ABLE TO PROVIDE HISTORY ON ARRIVAL. STATES DID HAVE SEIZURE BUT WAS SHAKING SO BAD SHE FELL OFF TOILET.STRUCK TOP OF HEAD AND HAD SOME NECK PAIN PER EMS. PRESENTS WITH C COLLAR IN PLACE MOVES ALL EXTREMITIES. documented in this encounter <item><item><item><item><item><item><item><item><item><item><item><item><item><i tem><item><item><item><item><item> Privacy Markings (unrecogniz ed section and content) Section Author: Toña Laurent PROHIBITION ON REDISCLOSURE OF CONFIDENTIAL INFORMATION This notice accompanies a disclosure of information concerning a client made to you with the consent of such client. Section Author: Toña Laurent PROHIBITION ON REDISCLOSURE OF CONFIDENTIAL INFORMATION This notice accompanies a disclosure of information concerning a client made to you with the consent of such client. Section Author: Toña Laurent PROHIBITION ON REDISCLOSURE OF CONFIDENTIAL INFORMATION This notice accompanies a disclosure of information concerning a client made to you with the consent of such client. Section Author: Toña Laurent PROHIBITION ON REDISCLOSURE OF CONFIDENTIAL INFORMATION This notice accompanies a disclosure of information concerning a client made to you with the consent of such client. Section Author: Toña Laurent PROHIBITION ON REDISCLOSURE OF CONFIDENTIAL INFORMATION This notice accompanies a disclosure of information concerning a client made to you with the consent of such client. Section Author: Toña Laurent PROHIBITION ON REDISCLOSURE OF CONFIDENTIAL INFORMATION This notice accompanies a disclosure of information concerning a client made to you with the consent of such client. Section Author: Toña Laurent PROHIBITION ON REDISCLOSURE OF CONFIDENTIAL INFORMATION This notice accompanies a disclosure of information concerning a client made to you with the consent of such client. Section Author: Toña Laurent PROHIBITION ON REDISCLOSURE OF CONFIDENTIAL INFORMATION This notice accompanies a disclosure of information concerning a client made to you with the consent of such client. Section Author: Toña Laurent PROHIBITION ON REDISCLOSURE OF CONFIDENTIAL INFORMATION This notice accompanies a disclosure of information concerning a client made to you with the consent of such client. Section Author: Toña Laurent PROHIBITION ON REDISCLOSURE OF CONFIDENTIAL INFORMATION This notice accompanies a disclosure of information concerning a client made to you with the consent of such client. Section Author: Toña Laurent PROHIBITION ON REDISCLOSURE OF CONFIDENTIAL INFORMATION This notice accompanies a disclosure of information concerning a client made to you with the consent of such client. Section Author: Toña Laurent PROHIBITION ON REDISCLOSURE OF CONFIDENTIAL INFORMATION This notice accompanies a disclosure of information concerning a client made to you with the consent of such client. Section Author: Toña Laurent PROHIBITION ON REDISCLOSURE OF CONFIDENTIAL INFORMATION This notice accompanies a disclosure of information concerning a client made to you with the consent of such client. Section Author: Toña Laurent PROHIBITION ON REDISCLOSURE OF CONFIDENTIAL INFORMATION This notice accompanies a disclosure of information concerning a client made to you with the consent of such client. Section Author: Toña Laurent PROHIBITION ON REDISCLOSURE OF CONFIDENTIAL INFORMATION This notice accompanies a disclosure of information concerning a client made to you with the consent of such client. Section Author: Toña Laurent PROHIBITION ON REDISCLOSURE OF CONFIDENTIAL INFORMATION This notice accompanies a disclosure of information concerning a client made to you with the consent of such client. Section Author: Toña Laurent PROHIBITION ON REDISCLOSURE OF CONFIDENTIAL INFORMATION This notice accompanies a disclosure of information concerning a client made to you with the consent of such client. Section Author: Toña Laurent PROHIBITION ON REDISCLOSURE OF CONFIDENTIAL INFORMATION This notice accompanies a disclosure of information concerning a client made to you with the consent of such client. Section Author: Toña Laurent PROHIBITION ON REDISCLOSURE OF CONFIDENTIAL INFORMATION This notice accompanies a disclosure of information concerning a client made to you with the consent of such client. Care Teams (unrecognized sec tion and content) Road Commissioner Relationship Specialty Start Date End Date Jeanie Ayala MD [address] [place] [address] PCP - General Internal Medicine 12/18/20 Road Commissioner Relationship Specialty Start Date End Date Jeanie Ayala MD [address] [place] [address] PCP - General Internal Medicine 12/18/20 Road Commissioner Relationship Specialty Start Date End Date Dimas Brooke MD [address] [place] [address] PCP - General Family Medicine 09/01/16 02/19/19 Nedra Brewer CNP [address] [address] PCP - General Nurse Practitioner 02/20/19 11/30/20 Nedra Brewer CNP [address] [address] PCP - General Nurse Practitioner 12/01/20 12/17/20 Jeanie Ayala MD [address] [place] [address] PCP - General Internal Medicine 12/18/20 Dimas Brooke MD [address] [place] [address] Referring Physician Family Medicine 10/07/16 05/14/21 Jemma Figueroa, training development specialist Family Medicine 03/27/19 05/14/21 Ana Hodge Consulting Physician Neurology 11/21/18 05/14/21 Road Commissioner Relationship Specialty Start Date End Date Jeanie Ayala MD [address] [place] [place] [address] PCP - General 07/18/19 Road Commissioner Relationship Specialty Start Date End Date Jeanie Ayala MD [address] [place] [address] PCP - General 07/18/19 Road Commissioner Relationship Specialty Start Date End Date Jeanie Ayala MD [address] [place] [place] [address] PCP - General 07/18/19 Jeanie Ayala MD [address] [place] [address] PCP - [facility] Medicaid PCP 04/17/23 Road Commissioner Relationship Specialty Start Date End Date Jeanie Ayala MD [address] [place] [address] PCP - General 07/18/19 Jeanie Ayala MD [address] [place] [address] PCP - [facility] Medicaid PCP 04/17/23 Road Commissioner Relationship Specialty Start Date End Date Jeanie Ayala MD [address] [place] [address] PCP - General 07/18/19 Jeanie Ayala MD [address] [place] [address] PCP - [facility] Medicaid PCP 04/17/23 Road Commissioner Relationship Specialty Start Date End Date Jeanie Ayala MD [address] [place] [address] PCP - General 07/18/19 Jeanie Ayala MD [address] [place] [address] PCP [facility] Medicaid PCP 04/17/23 Road Commissioner Relationship Specialty Start Date End Date Jeanie Ayala MD [address] [place] [address] PCP - General 07/18/19 Jeanie Ayala MD [address] [place] [address] PCP [facility] Medicaid PCP 04/17/23 Road Commissioner Relationship Specialty Start Date End Date Jeanie Ayala [address] [place] [address] PCP - General Internal Medicine 08/19/23 Road Commissioner Relationship Specialty Start Date End Date Jeanie Ayala [address] [place] [place] [address] PCP - General Internal Medicine 08/19/23 Road Commissioner Relationship Specialty Start Date End Date Jeanie Ayala MD [address] [place] [address] PCP - General 07/18/19 Jeanie Ayala MD [address] [place] [address] PCP - [facility] Medicaid PCP 04/17/23 Road Commissioner Relationship Specialty Start Date End Date Jeanie Ayala MD [address] [place] [address] PCP - General 07/18/19 Jeanie Ayala MD [address] [place] [address] PCP - [facility] Medicaid PCP 04/17/23 Road Commissioner Relationship Specialty Start Date End Date Jeanie Ayala MD [address] [place] [address] PCP - General 07/18/19 Jeanie Ayala MD [address] [place] [address] PCP [facility] Medicaid PCP 04/17/23 Road Commissioner Relationship Specialty Start Date End Date Jeanie Ayala MD [address] [place] [address] PCP - General 07/18/19 Jeanie Ayala MD [address] [place] [address] PCP [facility] Medicaid PCP 04/17/23 Road Commissioner Relationship Specialty Start Date End Date Jeanie Ayala MD [address] [place] [address] PCP - General 07/18/19 Jeanie Ayala MD [address] [place] [address] PCP [facility] Medicaid PCP 04/17/23 Road Commissioner Relationship Specialty Start Date End Date Jeanie Ayala MD [address] [place] [address] PCP - General 07/18/19 Jeanie Ayala MD [address] [place] [address] PCP [facility] Medicaid PCP 04/17/23 Road Commissioner Relationship Specialty Start Date End Date Jeanie Ayala MD [address] [place] [address] PCP - General 07/18/19 Jeanie Ayala MD [address] [place] [address] PCP [facility] Medicaid PCP 04/17/23 Road Commissioner Relationship Specialty Start Date End Date Jeanie Ayala MD [address] [place] [place] [address] PCP - General 07/18/19 Jeanie Ayala MD [address] [place] [address] PCP - [facility] Medicaid PCP 04/17/23 Road Commissioner Relationship Specialty Start Date End Date Jeanie Ayala MD [address] [place] [address] PCP - General 07/18/19 Jeanie Ayala MD [address] [place] [address] PCP - [facility] Medicaid PCP 04/17/23 Road Commissioner Relationship Specialty Start Date End Date Jeanie Ayala MD [address] [place] [address] PCP - General 07/18/19 Jeanie Ayala MD [address] [place] [address] PCP - [facility] Medicaid PCP 04/17/23 Road Commissioner Relationship Specialty Start Date End Date Jeanie Ayala [address] [place] [address] PCP - General Internal Medicine 08/19/23 Road Commissioner Relationship Specialty Start Date End Date Jeanie Ayala [address] [place] [address] PCP - General Internal Medicine 08/19/23 Road Commissioner Relationship Specialty Start Date End Date Jeanie Ayala MD [address] [place] [address] PCP - General 07/18/19 Jeanie Ayala MD [address] [place] [address] PCP - [facility] Medicaid PCP 04/17/23 Road Commissioner Relationship Specialty Start Date End Date Jeanie Ayala MD [address] [place] [address] PCP - General 07/18/19 Jeanie Ayala MD [address] [facility] [place] [address] PCP - [facility] Medicaid PCP 04/17/23 Road Commissioner Relationship Specialty Start Date End Date Jeanie Ayala [address] [facility] [place] [address] PCP - General Internal Medicine 08/19/23 Road Commissioner Relationship Specialty Start Date End Date Jeanie Ayala [address] [place] [address] PCP - General Internal Medicine 08/19/23 Road Commissioner Relationship Specialty Start Date End Date Jeanie Ayala MD [address] [place] [address] PCP - General Internal Medicine 12/18/20 Road Commissioner Relationship Specialty Start Date End Date Lam Ayaladad [address] [facility] [place] [address] PCP - General Internal Medicine 08/19/23 Road Commissioner Relationship Specialty Start Date End Date Jeanie Ayala [address] [place] [address] PCP - General Internal Medicine 08/19/23 Road Commissioner Relationship Specialty Start Date End Date Jyoti Gupta MD [address] [place] [address] PCP - General Family Medicine 02/04/24 Road Commissioner Relationship Specialty Start Date End Date Jeanie Ayala [address] [place] [address] PCP - General Internal Medicine 08/19/23 Road Commissioner Relationship Specialty Start Date End Date Jeaine Ayala MD [address] [place] [address] PCP - General 07/18/19 Jeanie Ayala MD [address] [place] [place] [address] PCP - [facility] Medicaid PCP 04/17/23 Road Commissioner Relationship Specialty Start Date End Date Jeanie Ayala MD [address] [place] [address] PCP - General 07/18/19 Jeanie Ayala MD [address] [place] [place] [address] PCP - [facility] Medicaid PCP 04/17/23 [address] Commissioner Relationship Specialty Start Date End Date Jeanie Ayala [address] [place] [address] PCP - General Internal Medicine 08/19/23 Road Commissioner Relationship Specialty Start Date End Date Jyoti Gupta MD [address] [facility] [place] [address] PCP - General Family Medicine 03/02/24 Road Commissioner Relationship Specialty Start Date End Date Jyoti Gupta MD [address] [place] [address] PCP - General Family Medicine 03/02/24 Road Commissioner Relationship Specialty Start Date End Date Jeanie Ayala [address] [place] [place] [address] PCP - General Internal Medicine 08/19/23 Road Commissioner Relationship Specialty Start Date End Date Jeanie Ayala [address] [place] [address] PCP - General Internal Medicine 08/19/23 [address] Commissioner Relationship Specialty Start Date End Date Jeanie Ayala [address] [place] [address] PCP - General Internal Medicine 08/19/23 [address] Commissioner Relationship Specialty Start Date End Date Jeanie Ayala MD [address] [place] [address] PCP - General 07/18/19 Jeanie Ayala MD [address] [place] [address] PCP - [facility] Medicaid PCP 04/17/23 [address] Commissioner Relationship Specialty Start Date End Date Jeanie Ayala MD [address] [place] [address] PCP - General 07/18/19 Road Commissioner Relationship Specialty Start Date End Date Jeanie Ayala [address] [place] [address] PCP - General Internal Medicine 08/19/23 [address] Commissioner Relationship Specialty Start Date End Date Jeanie Ayala [address] [place] [address] PCP - General Internal Medicine 08/19/23 [address] Commissioner Relationship Specialty Start Date End Date Jeanie Ayala [address] [place] [address] PCP - General Internal Medicine 08/19/23 [address] Commissioner Relationship Specialty Start Date End Date Jeanie Ayala MD [address] [place] [address] PCP - General 07/18/19 Jeanie Ayala MD [address] [place] [address] PCP - [facility] Medicaid PCP 04/17/23 [address] Commissioner Relationship Specialty Start Date End Date Jeanie Ayala [address] [place] [address] PCP - General Internal Medicine 08/19/23 [address] Commissioner Relationship Specialty Start Date End Date Jeanie Ayala [address] [place] [address] PCP - General Internal Medicine 08/19/23 Road Commissioner Relationship Specialty Start Date End Date Jeanie Ayala [address] [place] [address] PCP - General Internal Medicine 08/19/23 Team Status: Active Member Role Status Dates Dr. Sree Jamison MD Primary Care Provider Active Team Status: Active Member Role Status Dates Dr. Sree Jamison MD Primary Care Provider Active Start: January 01, 2025 Dr. Sree Jamison MD Attending Provider Active Start: January 01, 2025 Sree SALDANA [facility] Provider Active Start : January 01, 2025 Team Status: Inactive Member Role Status Dates Dr. Sree Jamison MD Primary Care Provider Active Start: March 21, 2025 End: March 21, 2025 Dr. Ian Starr MD Emergency Provider Active Start: March 21, 2025 End: March 21, 2025 Team Status: Inactive Member Role Status Dates Dr. Sree Jamison MD Primary Care Provider Active Start: March 21, 2025 End: March 21, 2025 Dr. Ian Starr MD Attending Provider Active Start: March 21, 2025 End: March 21, 2025 Dr. Ian Starr MD Emergency Provider Active Start: March 21, 2025 End: March 21, 2025 Team Status: Inactive Member Role Status Dates Dr. Sree Jamison MD Primary Care Provider Active Start: April 04, 2025 End: April 05, 2025 Dr. Lawsno Higgins MD Emergency Provider Active Sta rt: April 04, 2025 End: April 05, 2025 Scheduled Active and Recently Administ ered Medications (unrecognized section and content) Medication Order 07/23/2023 07/24/2023 07/25/2023 acetaminophen (Tylenol) tablet 975 mg (COMPLETED) 975 mg, oral, Once, On 07/25/23 at 0055, For 1 dose, If ordered PRN for pain, nurse is permitted to administer this medication for higher pain scores based on patient preference? Yes 0059 (Given - Provid er: Olive Fisher RN) LORazepam (Ativan) tablet 1 mg (COMPLETED) 1 mg, oral, Once, On 07/24/23 at 2340, For 1 dose 2353 (Given - Provider: Olive Fisher RN) Scheduled Medication Order 08/11/2023 08/12/2023 08/13/2023 acetaminophen (Tylenol) tablet 650 mg (COMPLETED) 650 mg, oral, Once, On Wed08/13/23 at 0910, For 1 dose, If ordered PRN for pain, nurse is permitted to administer this medication for higher pain scores based on patient preference? Yes 0920 (Given - Provid er: Carmelina Brennan RN) Scheduled Medication Order 08/23/2023 08/24/2023 08/25/2023 acetaminophen (Tylenol) tablet 650 mg 650 mg, oral, Once, On 08/25/23 at 1350, For 1 dose, If ordered PRN for pain, nurse is permitted to administer this medication for higher pain scores based on patient preference? Yes 1350 (Not Given - Pr ovider: Carmelina Brennan RN - Reason: Patient/family refused) Scheduled Medication Order 09/14/2023 09/15/2023 09/16/2023 acetaminophen (Tylenol) tablet 650 mg (COMPLETED) 650 mg, oral, Once, On [place] 09/16/23 at 0930, For 1 dose, If ordered PRN for pain, nurse is permitted to administer this medication for higher pain scores based on patient preference? Yes 0959 (Given - Provid er: Cornelia Haley RN) bacitracin ointment 1 Application (COMPLETED) 1 Application, Topical, Once, On [place] 09/16/23 at 1025, For 1 dose, Apply to: ELBOW 1045 (Given - Provid er: Cornelia Haley RN - Comment: to right elbow) Scheduled Medication Order 11/15/2023 11/16/2023 11/17/2023 LORazepam (Ativan) tablet 1 mg (COMPLETED) 1 mg, oral, Once, On Wed11/17/23 at 1620, For 1 dose 1628 (Given - Provid er: Chantell Bernal RN) morphine injection 4 mg (COMPLETED) 4 mg, intramuscular, Once, On Wed11/17/23 at 1745, For 1 dose 1804 (Given - Provid er: Carmelina Brennan RN) Scheduled Medication Order 12/30/2023 12/31/2023 01/01/2024 allopurinoL (ZYLOPRIM) tablet 300 mg 300 mg, Oral, Daily, First dose on 01/01/24 at 0900 0908 (Given - Provid er: Litzy Garcia RN) amLODIPine (NORVASC) tablet 10 mg 10 mg, Oral, Daily, First dose on Wed01/01/24 at 0900 0907 (Given - Provid er: Litzy Garcia RN) atorvastatin (LIPITOR) tablet 20 mg 20 mg, Oral, At bedtime, First dose on Wed12/31/23 at 2220 2353 (Given - Provider: Nubia Garcia RN) busPIRone (BUSPAR) tablet 10 mg 10 mg, Oral, 3 times daily, First dose on Wed12/31/23 at 2220 2353 (Given - Provider: Nubia Garcia RN) 09 (Given - Provider: Lizty Garcia RN) calcium carbonate (TUMS) chewable tablet 500 mg 500 mg, Oral, Daily, First dose on 01/01/24 at 0900, Give with Food 09 (Given - Provid er: Litzy Garcia RN) cyanocobalamin (B-12) tablet 1,000 mcg 1,000 mcg, Oral, Daily, First dose on 01/01/24 at 0900 0907 (Given - Provid er: Litzy Garcia RN) divalproex (DEPAKOTE ER) 24 hr tablet 500 mg(Linked Group 1) 500 mg, Oral, 2 times daily, First dose (after last modification) on Wed12/31/23 at 2340, CATEGORY D HAZARDOUS DRUG use safe handling precautions. Use reference link to view PPE guidelines. DO NOT CRUSH OR CHEW. 0135 (Given - Provid er: Timothy Dale RN)906 (Given - Provider: Litzy Garcia RN) famotidine (PEPCID) tablet 20 mg 20 mg, Oral, Daily, First dose on 01/01/24 at 0900 0907 (Given - Provid er: Litzy Garcia RN) heparin (porcine) injection 5,000 Units 5,000 Units, Subcutaneous, Every 8 hours scheduled, First dose on Wed12/31/23 at 2220, Notify physician if patient refuses. 2354 (Given - Provider: Nubia Garcia RN) 0537 (Given - Provider: Timothy Dale, JOHN) levETIRAcetam (KEPPRA) tablet 500 mg 500 mg, Oral, 2 times daily, First dose on Wed12/31/23 at 2220 2356 (Given - Provider: Nubia Garcia RN) 0907 (Given - Provider: Litzy Garcia RN) levothyroxine (SYNTHROID, LEVOTHROID) tablet 25 mcg 25 mcg, Oral, Every morning, First dose (after last modification) on 01/01/24 at 0900, For patients on continuous tube feed: Hold TF from 1 hr before until 1 hr after each dose. TF rate may need adjustment to meet caloric needs. 0908 (Given - Provid er: Litzy Garcia RN) lisinopriL (PRINIVIL,ZESTRIL) tablet 20 mg 20 mg, Oral, Daily, First dose on Wed01/01/24 at 1200 1200 (Given - Provid er: Litzy Garcia RN) loratadine (CLARITIN) tablet 10 mg 10 mg, Oral, Daily, First dose on Wed01/01/24 at 0900 0907 (Given - Provid er: Litzy Garcia RN) LORazepam (ATIVAN) tablet 1 mg 1 mg, Oral, 2 times daily, First dose on Wed01/01/24 at 1000 0943 (Given - Provid er: Litzy Garcia RN) magnesium sulfate 2 g in sterile water (SW) 50 mL IVPB 2 g, Intravenous, at 25 mL/hr, Once, On Wed01/01/24 at 0740, For 1 dose, Indication: Hypomagnesemia 0740 (Hold - Provide r: Litzy Garcia RN - Reason: Contraindicated - Comment: Mag 1.7) metoprolol tartrate (LOPRESSOR) tablet 25 mg 25 mg, Oral, 2 times daily, First dose on Wed12/31/23 at 2340 0134 (Given - Provid er: Timothy Dale, JOHN)0907 (Given - Provider: Litzy Garcia RN) nitroGLYCERIN (NITROSTAT) SL tablet 0.4 mg (COMPLETED) 0.4 mg, Sublingual, Once, On Wed12/31/23 at 2120, For 1 dose, Anginal pain, may repeat [id number] x3, then notify physician. DO NOT CRUSH OR CHEW. 2117 (Given - Provider: Nubia Garcia RN - Comment: BP 134/96) pantoprazole (PROTONIX) EC tablet 40 mg 40 mg, Oral, Daily, First dose on Wed01/01/24 at 0900, DO NOT CRUSH OR CHEW. 0907 (Given - Provid er: Litzy Garcia RN) potassium, sodium phosphates (PHOS-NAK) 280-160-250 mg packet 1 packet 1 packet, Oral, 4 times daily with meals and nightly, First dose on Wed12/31/23 at 2345, For 1 day, mg dosing is based on phosphorus component. Each packet contains 250 mg elemental phosphorus. 0134 (Given - Provid er: Timothy Dale RN)0909 (Given - Provider: Litzy Garcia RN)1200 (Hold - Provider: Litzy Garcia RN - Reason: Contraindicated - Comment: pt discharged) primidone (MYSOLINE) tablet 100 mg 100 mg, Oral, 2 times daily, First dose on Wed12/31/23 at 2340 0134 (Given - Provid er: Timothy Dale RN)0908 (Given - Provider: Litzy Garcia RN) sertraline (ZOLOFT) tablet 100 mg 100 mg, Oral, 2 times daily, First dose on Wed12/31/23 at 2340 0133 (Given - Provid er: Timothy Dale RN)0907 (Given - Provider: Litzy Garcia RN) sod phos di, mono-K phos mono (K-PHOS NEUTRAL) tablet 500 mg 500 mg, Oral, 2 times daily, First dose on Wed01/01/24 at 0900, For 2 doses 0942 (Given - Provid er: Litzy Garcia RN) PRN Medication Order 12/30/2023 12/31/2023 01/01/2024 acetaminophen (TYLENOL) tablet 650 mg 650 mg, Oral, Every 4 hours PRN, mild pain, fever 100.4 F or greater, headaches, Starting on Wed12/31/23 at 2215 2353 (Given - Provider: Nubia Garcia RN) 0534 (Given - Provider: Timothy Dale RN) albuterol (PROVENTIL) 2.5 mg /3 mL (0.083 %) nebulizer solution 2.5 mg 2.5 mg, Nebulization, Every 6 hours PRN, shortness of breath, Starting on Wed12/31/23 at 2337 albuterol inhaler 2 puff 2 puff, Inhalation, Every 6 hours PRN, shortness of breath, Starting on Wed12/31/23 at 2215, SPACER REQUIRED FOR ADMINISTRATION aluminum-magnesium hydroxide-simethicone (MAALOX PLUS) 200-200-20 mg/5 mL suspension 30 mL 30 mL, Oral, Every 4 hours PRN, indigestion, Starting on Wed12/31/23 at 221 artificial tears (polyethylene glycol 400) 1 % ophthalmic solution 1 drop 1 drop, Both Eyes, As needed, dry eyes, Starting on Wed12/31/23 at 233 benzonatate (TESSALON) capsule 200 mg 200 mg, Oral, Every 8 hours PRN, cough, Starting on Wed12/31/23 at 2337, DO NOT CRUSH OR CHEW. bisacodyL (DULCOLAX) suppository 10 mg 10 mg, Rectal, Daily PRN, constipation, Starting on Wed12/31/23 at 233 iopamidoL (ISOVUE-370) 370 mg iodine /mL (76 %) injection 75 mL (COMPLETED) 75 mL, Intravenous, Once in imaging, contrast, Starting on Wed12/31/23 at 2139, For 1 dose 2155 (Contrast Administered - Provider: Gabe Barclay TECHNOLOGIST - Comment: Lot Number: [id number] ) LORazepam (ATIVAN) tablet 2 mg 2 mg, Oral, 2 times daily PRN, anxiety, Starting on Wed12/31/23 at 2337 0133 (Given - Provider: Timothy Dale RN) meclizine (ANTIVERT) tablet 25 mg 25 mg, Oral, 3 times daily PRN, nausea, Starting on Wed12/31/23 at 2215 melatonin Tab Oral, Nightly PRN, insomnia, Starting on Wed12/31/23 at 2215 ondansetron (ZOFRAN) injection 4 mg(Linked Group 2) 4 mg, Intravenous, Every 6 hours PRN, nausea, vomiting, Starting on Wed12/31/23 at 2215, Use oral route first, if tolerated. ondansetron (ZOFRAN-ODT) disintegrating tablet 4 mg(Linked Group 2) 4 mg, Oral, Every 6 hours PRN, nausea, vomiting, Starting on Wed12/31/23 at 2215, Use oral route first, if tolerated. Formulation requires tablet remain in sealed package until immediately prior to dose being administered. perflutren lipid microspheres (DEFINITY) 0.143 mg/mL solution 0-10 mL of mixture 0-10 mL of mixture, Intravenous, Once in imaging, contrast, IF suboptimal echo, Starting on Wed12/31/23 at 2220, For 48 hours, Prepare syringe by withdrawing 1.3 mL of perflutren (DEFINITY) from the 2ml vial. Further dilute the 1.3 mL of perflutren with Sodium Chloride (NS) 0.9% to total volume of 10 ml. Chart total ML OF MIXTURE given to patient. senna (SENOKOT) tablet 8.6 mg 8.6 mg (1 tablet), Oral, 2 times daily PRN, constipation, Starting on Wed12/31/23 at 2215 sodium chloride (PF) (NS) 0.9 % contrast line flush 10 mL (COMPLETED)(Linked Group 3) 10 mL, Intravenous, Once in imaging, contrast, Per vamp strap ironer (Radiology) for line patency check prior to contrast administration, Starting on Wed12/31/23 at 2139, For 1 dose 2155 (Given - Provider: Gabe Barclay, TECHNOLOGIST) sodium chloride (PF) (NS) 0.9 % contrast line flush 80 mL (COMPLETED)(Linked Group 3) 80 mL, Intravenous, Once in imaging, contrast, Per vamp strap ironer (Radiology), Starting on Wed12/31/23 at 2139, For 1 dose, 30 mL BEFORE contrast administration 50 mL AFTER contrast administration 2155 (Given - Provider: Gabe Barclay, TECHNOLOGIST) Linked Groups Order Group 1: divalproex (DEPAKOTE ER) 24 hr tablet 500 mgJump to med 500 mg, Oral, 2 times daily, First dose (after last modification) on Wed12/31/23 at 2340, CATEGORY D HAZARDOUS DRUG use safe handling precautions. Use reference link to view PPE guidelines. DO NOT CRUSH OR CHEW. Group 2: ondansetron (ZOFRAN-ODT) disintegrating tablet 4 mgJump to med 4 mg, Oral, Every 6 hours PRN, nausea, vomiting, Starting on Wed12/31/23 at 2215, Use oral route first, if tolerated. Formulation requires tablet remain in sealed package until immediately prior to dose being administered. Or ondansetron (ZOFRAN) injection 4 mgJump to med 4 mg, Intravenous, Every 6 hours PRN, nausea, vomiting, Starting on Wed12/31/23 at 2215, Use oral route first, if tolerated. Group 3: sodium chloride (PF) (NS) 0.9 % contrast line flush 10 mL (COMPLETED)Jump to med 10 mL, Intravenous, Once in imaging, contrast, Per vamp strap ironer (Radiology) for line patency check prior to contrast administration, Starting on Wed12/31/23 at 2139, For 1 dose And sodium chloride (PF) (NS) 0.9 % contrast line flush 80 mL (COMPLETED)Jump to med 80 mL, Intravenous, Once in imaging, contrast, Per vamp strap ironer (Radiology), Starting on Wed12/31/23 at 2139, For 1 dose, 30 mL BEFORE contrast administration 50 mL AFTER contrast administration Scheduled Medication Order 06/04/2024 06/05/2024 06/06/2024 ciprofloxacin (CIPRO) IVPB 400 mg (premix) (CANCELED) 400 mg, Intravenous, at 200 mL/hr, Every 12 hours scheduled, First dose on Wed06/05/24 at 0015, Indication: Community Acquired Intra-abdominal Infections 0124 (New Bag - Provider: Angela Edwards RN)1052 (New Bag - Provider: Litzy Ma, JOHN)1100 (Stopped - Provider: Litzy Ma RN)1500 (DEC Hold - Provider: Transfer Provider, Automatic - Reason: Patient not available)1804 (DEC Unhold - Provider: Transfer Provider, Automatic) docusate sodium (COLACE) capsule 100 mg 100 mg, Oral, 2 times daily, First dose on Wed06/06/24 at 1045, Hold for loose stools DO NOT CRUSH OR CHEW. 1045 (Not Given - Provider: Khalida Branch RN - Reason: Patient/family refused) enoxaparin (LOVENOX) syringe 40 mg 40 mg, Subcutaneous, Daily, First dose on Wed06/06/24 at 1045, Administer in abdomen unless otherwise directed by prescriber. Notify physician if patient refuses., Prophylaxis Indication: VTE Prophylaxis 1042 (Given - Provider: Khalida Branch, JOHN) fentaNYL (SUBLIMAZE) injection 50 mcg (COMPLETED) 50 mcg, Intravenous, Once, On Wed06/04/24 at 2305, For 1 dose 2309 (Given - Provider: Maxine Vance RN) levETIRAcetam (KEPPRA) injection 500 mg 500 mg, Intravenous, Every 12 hours scheduled, First dose on Wed06/05/24 at 0115, IV Push in undiluted syringe at a rate of 500 mg/min for doses 1500mg or less 0118 (Given - Provider: Angela Edwards RN)0911 (Given - Provider: Litzy Ma, JOHN)1500 (DEC Hold - Provider: Transfer Provider, Automatic - Reason: Patient not available)1804 (DEC Unhold - Provider: Transfer Provider, Automatic)2103 (Given - Provider: Jojo Calderón RN) 0854 (Given - Provider: Khalida Branch RN) lidocaine patch 1 patch 1 patch, Transdermal, Administer over 12 Hours, Daily, First dose on Wed06/05/24 at 0900 0911 (Patch Applied - Provider: Litzy Ma RN - Comment: Abd)1500 (DEC Hold - Provider: Transfer Provider, Automatic - Reason: Patient not available)1804 (DEC Unhold - Provider: Transfer Provider, Automatic)211 (Patch Removed - Provider: Jojo Calderón RN) 0900 (Not Given - Provider: Khalida Branch RN - Reason: Order parameters not met) LORazepam (ATIVAN) concentrated solution 0.5 mg (COMPLETED) 0.5 mg, Oral, Once, On Wed06/05/24 at 1345, For 1 dose 1317 (Given - Provider: Litzy Ma, JOHN) LORazepam (ATIVAN) injection 0.5 mg 0.5 mg, Intravenous, Every 12 hours scheduled, First dose on Wed06/05/24 at 0115, VESICANT 0118 (Given - Provider: Angela Edwards RN)0911 (Given - Provider: Litzy Ma, RN)1500 (DEC Hold - Provider: Transfer Provider, Automatic - Reason: Patient not available)1804 (DEC Unhold - Provider: Transfer Provider, Automatic)2103 (Given - Provider: Jojo Calderón RN) 0854 (Given - Provider: Khalida Branch RN) metroNIDAZOLE (FLAGYL) IVPB 500 mg (CANCELED) 500 mg, Intravenous, at 200 mL/hr, Every 8 hours, First dose on Wed06/05/24 at 0200, DO NOT REFRIGERATE, Indication: High Risk or Severity Community or Hosp Acquired Intra-abdominal Infections 0258 (New Bag - Provider: Angela Edwards RN)1005 (New Bag - Provider: Litzy Ma, JOHN)1100 (Stopped - Provider: Litzy Ma RN)1500 (DEC Hold - Provider: Transfer Provider, Automatic - Reason: Patient not available)1800 (Automatically Held - Provider: Transfer Provider, Automatic)1804 (DEC Unhold - Provider: Transfer Provider, Automatic)1824 (New Bag - Provider: Mal Olivares RN) 0102 (New Bag - Provider: Jojo Calderón RN)0900 (New Bag - Provider: Khalida Branch RN) oxyCODONE-acetaminophen (PERCOCET) 5-325 mg per tablet 1 tablet 1 tablet, Oral, Once, On Wed06/05/24 at 1900, For 1 dose 2000 (Not Given - Provider: Jojo Calderón RN - Reason: Other - Comment: patient refused, states she does not want to become addicted) sodium chloride (PF) (NS) flush 5 mL(Linked Group 1) 5 mL, Intravenous, Every 8 hours scheduled, First dose on Wed06/05/24 at 0145, Saline lock 0145 (Canceled Entry - Provider: Angela Edwards RN)0600 (Canceled Entry - Provider: Angela Edwards RN)1318 (Given - Provider: Litzy Ma RN)1500 (DEC Hold - Provider: Transfer Provider, Automatic - Reason: Patient not available)1804 (DEC Unhold - Provider: Transfer Provider, Automatic)2103 (Given - Provider: Jojo Calderón RN) 0554 (Given - Provider: Jojo Calderón RN)1400 (Not Given - Provider: Khalida Lang, RN - Reason: Order parameters not met) sodium chloride 0.9% (NS) bolus 500 mL (COMPLETED) 500 mL, Intravenous, at 967.7 mL/hr, Once, On Wed06/04/24 at 2305, For 1 dose 2309 (New Bag - Provider: Maxine Vance, JOHN)2340 (Due: Stopped - Provider: Maxine Vance, RN) valproate (DEPACON) 500 mg in sodium chloride 0.9% (NS) 100 mL IVPB 500 mg, Intravenous, at 100 mL/hr, Every 12 hours scheduled, First dose (after last modification) on Wed06/05/24 at 0600, CATEGORY B HAZARDOUS DRUG use safe handling precautions. Use reference link to view PPE guidelines. EMERGENCY HAZ DRUG use professional judgement when deviating from standard handling precautions., Indication: Seizures / Psych. Issues 0526 (New Bag - Provider: Angela Edwards RN)1500 (DEC Hold - Provider: Transfer Provider, Automatic - Reason: Patient not available)1800 (Automatically Held - Provider: Transfer Provider, Automatic)1804 (DEC Unhold - Provider: Transfer Provider, Automatic)1944 (New Bag - Provider: Mal Olivares, JOHN) 0553 (New Bag - Provider: Jojo Calderón RN) Continuous Medication Order 06/04/2024 06/05/2024 06/06/2024 dextrose 5 % and sodium chloride 0.45 % infusion () 75 mL/hr, Intravenous, Continuous, Starting on Wed06/05/24 at 0145, For 12 hours 0110 (New Bag - Provider: Saul Edwards RN)1313 (Stopped - Provider: Litzy Ma, JOHN) dextrose 5 % and sodium chloride 0.45 % infusion (CANCELED) 75 mL/hr, Intravenous, Continuous, Starting on Wed06/05/24 at 1345, For 12 hours 1312 (New Bag - Provider: Litzy Ma, JOHN)1500 (DEC Hold - Provider: Transfer Provider, Automatic - Reason: Patient not available)1804 (DEC Unhold - Provider: Transfer Provider, Automatic) PRN Medication Order 06/04/2024 06/05/2024 06/06/2024 BUPivacaine 0.5% (MPF) 150 mg, in 0.9% sodium chloride (NS) for total volume 60 mL (CANCELED) As needed, Starting on Wed06/05/24 at 1627, Intra-Procedure 1627 (Given - Provider: Raúl Hudson MD) iopamidoL (ISOVUE-370) 370 mg iodine /mL (76 %) injection 75 mL (COMPLETED) 75 mL, Intravenous, Once in imaging, contrast, Starting on Wed06/04/24 at 2114, For 1 dose 7 (Contrast Administered - Provider: Gabe Barclay, TECHNOLOGIST - Comment: Lot Number: [id number]: ) ketorolac (TORADOL) injection 15 mg 15 mg, Intravenous, Every 6 hours PRN, mild pain, Starting on Wed06/05/24 at 0211, For 48 hours 1500 (DEC Hold - Provider: Transfer Provider, Automatic - Reason: Patient not available)1804 (DEC Unhold - Provider: Transfer Provider, Automatic)2103 (Given - Provider: Jojo Calderón RN) 0603 (Given - Provider: Jojo Calderón RN)1141 (Given - Provider: Khalida Branch RN) metoprolol (LOPRESSOR) injection 5 mg 5 mg, Intravenous, Every 4 hours PRN, systolic Bp >180, Starting on Wed06/05/24 at 0053 1500 (DEC Hold - Provider: Transfer Provider, Automatic - Reason: Patient not available)1804 (DEC Unhold - Provider: Transfer Provider, Automatic)1840 (Given - Provider: Mal Olivares RN) morphine syringe 4 mg 4 mg, Intramuscular, Every 4 hours PRN, moderate to severe pain, Starting on Wed06/05/24 at 1248 1427 (Given - Provider: Mal Olivares, JOHN)1500 (DEC Hold - Provider: Transfer Provider, Automatic - Reason: Patient not available)1804 (DEC Unhold - Provider: Transfer Provider, Automatic) 0102 (Given - Provider: Jojo Calderón RN) naloxone (NARCAN) injection 0.1 mg(Linked Group 2) 0.1 mg, Intravenous, As needed, opioid reversal, For respiratory rate less than or equal to 8 per minute., Starting on Wed06/05/24 at 1247, Mix nalOXone (NARCAN) 0.4 mg (1mL) with 9 mL of Normal Saline to total 10 mL. Administer 0.1 mg (2.5mL) IV Push every 2 minutes until respiratory rate is 10 or greater. 1500 (DEC Hold - Provider: Transfer Provider, Automatic - Reason: Patient not available)1804 (DEC Unhold - Provider: Transfer Provider, Automatic) naloxone (NARCAN) injection 0.4 mg(Linked Group 2) 0.4 mg, Intravenous, As needed, opioid reversal, patient is pulseless, breathless, and unresponsive, Starting on Wed06/05/24 at 1247, Call a code first, then administer naloxone dose undiluted IV Push over 30 seconds. 1500 (DEC Hold - Provider: Transfer Provider, Automatic - Reason: Patient not available)1804 (DEC Unhold - Provider: Transfer Provider, Automatic) ondansetron (ZOFRAN) injection 4 mg (CANCELED) 4 mg, Intravenous, Every 6 hours PRN, nausea, vomiting, Starting on Wed06/05/24 at 0858 0909 (Given - Provider: Litzy Ma RN)1500 (DEC Hold - Provider: Transfer Provider, Automatic - Reason: Patient not available)1804 (DEC Unhold - Provider: Transfer Provider, Automatic) ondansetron (ZOFRAN) injection 4 mg 4 mg, Intravenous, Every 6 hours PRN, nausea, vomiting, Starting on Wed06/05/24 at 1806 1146 (Given - Provider: Khalida Branch RN) sodium chloride (PF) (NS) 0.9 % contrast line flush 10 mL (COMPLETED)(Linked Group 3) 10 mL, Intravenous, Once in imaging, contrast, Per vamp strap ironer (Radiology) for line patency check prior to contrast administration, Starting on Wed06/04/24 at 211, For 1 dose 2126 (Given - Provider: Gabe Barclay TECHNOLOGIST) sodium chloride (PF) (NS) 0.9 % contrast line flush 80 mL (COMPLETED)(Linked Group 3) 80 mL, Intravenous, Once in imaging, contrast, Per vamp strap ironer (Radiology), Starting on Wed06/04/24 at 2114, For 1 dose, 30 mL BEFORE contrast administration 50 mL AFTER contrast administration 2126 (Given - Provider: BOLIVAR LangleyOLOGIST) sodium chloride (PF) (NS) flush 5 mL(Linked Group 1) 5 mL, Intravenous, As needed, line care, Starting on Wed06/05/24 at 0053 1500 (MAR Hold - Provider: Transfer Provider, Automatic - Reason: Patient not available)1804 (DEC Unhold - Provider: Transfer Provider, Automatic) sodium chloride 0.9% (NS)(Linked Group 1) 0-150 mL/hr, Intravenous, As needed, To flush line after IV infusions when no maintenance IV ordered or a compatibility issue. Infuse 20ml at the same rate as the secondary infusion, Starting on Wed06/05/24 at 0053, Run as Primary IV. NOT intended for KVO. 1500 (DEC Hold - Provider: Transfer Provider, Automatic - Reason: Patient not available)1804 (DEC Unhold - Provider: Transfer Provider, Automatic) Linked Groups Order Group 1: Saline lock IV (CANCELED) Routine, Continuous, Starting on Wed06/05/24 at 0054, Until Specified And sodium chloride (PF) (NS) flush 5 mLJump to med 5 mL, Intravenous, As needed, line care, Starting on Wed06/05/24 at 0053 And sodium chloride (PF) (NS) flush 5 mLJump to med 5 mL, Intravenous, Every 8 hours scheduled, First dose on Wed06/05/24 at 0145, Saline lock And sodium chloride 0.9% (NS)Jump to med 0-150 mL/hr, Intravenous, As needed, To flush line after IV infusions when no maintenance IV ordered or a compatibility issue. Infuse 20ml at the same rate as the secondary infusion, Starting on Wed06/05/24 at 0053, Run as Primary IV. NOT intended for KVO. Group 2: naloxone (NARCAN) injection 0.1 mgJump to med 0.1 mg, Intravenous, As needed, opioid reversal, For respiratory rate less than or equal to 8 per minute., Starting on Wed06/05/24 at 1247, Mix nalOXone (NARCAN) 0.4 mg (1mL) with 9 mL of Normal Saline to total 10 mL. Administer 0.1 mg (2.5mL) IV Push every 2 minutes until respiratory rate is 10 or greater. And Notify physician (CANCELED) STAT, Until discontinued, Starting on Wed06/05/24 at 1248, Until Specified, Respiratory rate less than: 8, For respiratory rate less than or equal to 8, notify physician and/or appropriate staff for additional orders. And naloxone (NARCAN) injection 0.4 mgJump to med 0.4 mg, Intravenous, As needed, opioid reversal, patient is pulseless, breathless, and unresponsive, Starting on Wed06/05/24 at 1247, Call a code first, then administer naloxone dose undiluted IV Push over 30 seconds. Group 3: sodium chloride (PF) (NS) 0.9 % contrast line flush 10 mL (COMPLETED)Jump to med 10 mL, Intravenous, Once in imaging, contrast, Per vamp strap ironer (Radiology) for line patency check prior to contrast administration, Starting on Wed06/04/24 at 2114, For 1 dose And sodium chloride (PF) (NS) 0.9 % contrast line flush 80 mL (COMPLETED)Jump to med 80 mL, Intravenous, Once in imaging, contrast, Per vamp strap ironer (Radiology), Starting on Wed06/04/24 at 2114, For 1 dose, 30 mL BEFORE contrast administration 50 mL AFTER contrast administration Scheduled Medication Order 03/13/2025 03/14/2025 03/15/2025 allopurinol (Zyloprim) tablet 100 mg 100 mg, Oral, Daily, First dose on Wed03/13/25 at 1315 1438 (Not Given - Provider: Supa Prakash RN - Reason: Other - Comment: pt recieved all daily meds at her facility per her) 0943 (Given - Provider: Diann Artis RN) 0845 (Given - Provider: Curtis Oshea, RN) amLODIPine (Norvasc) tablet 5 mg 5 mg, Oral, 2 times daily, First dose (after last modification) on Wed03/13/25 at 2100 2106 (Given - Provider: Ruth Topete RN) 0943 (Given - Provider: Diann Artis, JOHN)2008 (Given - Provider: Ruth Topete, JOHN) 0845 (Given - Provider: Curtis Oshea, RN) atorvastatin (Lipitor) tablet 20 mg 20 mg, Oral, Nightly, First dose on Wed03/13/25 at 2100 2105 (Given - Provider: Ruth Topete, JOHN) 2008 (Given - Provider: Ruth Topete, RN) busPIRone (Buspar) tablet 10 mg 10 mg, Oral, 3 times daily, First dose on Wed03/13/25 at 1400 1419 (Given - Provider: Supa Prakash RN)2106 (Given - Provider: Ruth Topete RN) 0943 (Given - Provider: Diann Artis RN)1340 (Given - Provider: Diann Artis, JOHN)2009 (Given - Provider: Ruth Topete RN) 0845 (Given - Provider: Curtis Oshea RN)1345 (Given - Provider: Curtis Oshea RN) calcium carbonate-cholecalcife rol (Oyster Shell) 250-3 MG-MCG per tablet 1 tablet 1 tablet, Oral, Daily, First dose on Wed03/14/25 at 0900 0959 (Given - Provider: Diann Artis RN) 0847 (Given - Provider: Curtis Oshea RN) calcium carbonate-cholecalcife rol (Oyster Shell) 250-3.125 MG-MCG per tablet 1 tablet (CANCELED) 1 tablet, Oral, Daily, First dose on Wed03/14/25 at 0600 0603 (Given - Provider: Ruth Topete RN) cetirizine (ZyrTEC) tablet 5 mg 5 mg, Oral, Daily, First dose on Wed03/13/25 at 1315, Substituted for Loratadine (CLARITIN). 1438 (Not Given - Provider: Supa Prakash RN - Reason: Other - Comment: pt recieved all daily meds at her facility per her) 0943 (Given - Provider: Diann Artis RN) 0845 (Given - Provider: Curtis Oshea RN) cholecalciferol (Vitamin D-3) tablet 2,000 Units 2,000 Units, Oral, Daily, First dose on Wed03/13/25 at 1315 1438 (Not Given - Provider: Supa Prakash RN - Reason: Other - Comment: pt recieved all daily meds at her facility per her) 0943 (Given - Provider: Diann Artis RN) 0846 (Given - Provider: Curtis Oshea, RN) cloNIDine (Catapres) tablet 0.1 mg 0.1 mg, Oral, 3 times daily, First dose on Wed03/13/25 at 2045 2105 (Given - Provider: Ruth Topete RN) 0944 (Given - Provider: Diann Artis, JOHN)1340 (Given - Provider: Diann Artis RN)2009 (Given - Provider: Ruth Topete RN) 0845 (Given - Provider: Curtis Oshea RN)1345 (Given - Provider: Curtis Oshea RN) cyanocobalamin (Vitamin B-12) tablet 1,000 mcg 1,000 mcg, Oral, Daily, First dose on Wed03/13/25 at 1315 1438 (Not Given - Provider: Supa Prakash RN - Reason: Other - Comment: pt recieved all daily meds at her facility per her) 0943 (Given - Provider: Diann Artis RN) 0845 (Given - Provider: Curtis Oshea RN) desvenlafaxine (Pristiq) 24 hr tablet 50 mg 50 mg, Oral, Daily, First dose on Wed03/14/25 at 0900, Do not crush, chew, or split. 0959 (Given - Provider: Diann Artis RN) 0847 (Given - Provider: Curtis Oshea RN) divalproex (Depakote ER) 24 hr tablet 250 mg(Linked Group 1) 250 mg, Oral, Every morning, First dose on Wed03/14/25 at 0900, Do not crush, chew, or split. 1250 (Given - Provider: Diann Artis RN) 0846 (Given - Provider: Curtis Oshea RN) divalproex (Depakote ER) 24 hr tablet 500 mg(Linked Group 1) 500 mg, Oral, Every evening, First dose on Wed03/13/25 at 1800, Do not crush, chew, or split. 2235 (Given - Provider: Ruth Topete RN - Comment: awaiting delivery) 1757 (Given - Provider: Diann Artis RN) enoxaparin (Lovenox) syringe 40 mg 40 mg, SubCUTAneous, Daily, First dose on Wed03/15/25 at 0900, Indication of Use: Prophylaxis-DVT/PE 0856 (Given - Provider: Curtis Oshea RN) lactated ringers bolus 500 mL (COMPLETED) 500 mL, IntraVENous, at 250 mL/hr, Administer over 2 Hours, Once, On Wed03/13/25 at 2100, For 1 dose 2101 (New Bag - Provider: Ruth Topete RN)2233 (Rate/Dose Verify - Provider: Ruth Topete RN)2330 (Stopped - Provider: Ruth Topete RN) levETIRAcetam (Keppra) tablet 500 mg 500 mg, Oral, 2 times daily, First dose on Wed03/13/25 at 1315, Do not crush or chew. 1438 (Not Given - Provider: Supa Prakash RN - Reason: Other - Comment: pt recieved all daily meds at her facility per her)2105 (Given - Provider: Ruth Topete RN) 942 (Given - Provider: Diann Artis, RN)2009 (Given - Provider: Ruth Topete RN) 0845 (Given - Provider: Curtis Oshea RN) levothyroxine (Synthroid, Levoxyl) tablet 25 mcg 25 mcg, Oral, Daily before breakfast, First dose on Wed03/14/25 at 0600, Tube feeding (TF) interaction, obtain physician order to manage, recommend holding TF for 30 minutes before and after dose. 06 (Given - Provider: Ruth Topete RN) 05 (Given - Provider: Ruth Topete RN) LORazepam (Ativan) tablet 1 mg 1 mg, Oral, See admin instructions, Starting on Wed03/13/25 at 1257, May take 1 tab between noon and 4 pm if needed for tremors 143 (Given - Provider: Supa Prakash RN) LORazepam (Ativan) tablet 2 mg 2 mg, Oral, 2 times daily, First dose on Wed03/13/25 at 2100 2104 (Given - Provider: Ruth Topete RN) 09 (Given - Provider: Diann Artis, RN)2008 (Given - Provider: Ruth Topete RN) 0845 (Given - Provider: Curtis Oshea, RN) magnesium oxide (Mag-Ox) tablet 400 mg 400 mg, Oral, Daily, First dose on Wed03/13/25 at 1315 1438 (Not Given - Provider: Supa Prakash RN - Reason: Other - Comment: pt recieved all daily meds at her facility per her) 0942 (Given - Provider: Diann Artis RN) 0845 (Given - Provider: Curtis Oshea, RN) metoprolol tartrate (Lopressor) tablet 25 mg 25 mg, Oral, 2 times daily, First dose on Wed03/13/25 at 2100 210 (Given - Provider: Ruth Topete RN) 0943 (Given - Provider: Diann Artis, JOHN)2008 (Given - Provider: Ruth Topete RN) 0845 (Given - Provider: Curtis Oshea, RN) polyethylene glycol (PEG) 3350 (Miralax) packet 17 g 17 g, Oral, Daily, First dose on Wed03/13/25 at 1315 1438 (Not Given - Provider: Supa Prakash RN - Reason: Other - Comment: pt recieved all daily meds at her facility per her) 0943 (Given - Provider: Diann Artis RN) 0844 (Given - Provider: Curtis Oshea, RN) potassium chloride (Klor-Con) packet 10 mEq 10 mEq, Oral, 2 times daily, First dose (after last modification) on Wed03/13/25 at 2100, Dissolve each packet in 4 ounces of water = 5 mEq per 1 oz fluid. 2103 (Given - Provider: Ruth Topete RN) 0942 (Given - Provider: Diann Artis RN)2008 (Given - Provider: Ruth Topete RN) 0846 (Given - Provider: Curtis Oshea, RN) primidone (Mysoline) tablet 200 mg 200 mg, Oral, 2 times daily, First dose on Wed03/13/25 at 2100 210 (Given - Provider: Ruth Topete RN) 125 (Given - Provider: Diann Artis, JOHN)2012 (Given - Provider: Ruth Topete RN) 0846 (Given - Provider: Curtis Oshea, RN) sodium chloride 0.9% (NS) flush 5-40 mL 5-40 mL, IntraVENous, Every 12 hours, First dose on Wed03/13/25 at 1230, For Line Patency: Peripheral IV = 5 mL; Midline or Central Line = 10 mL/lumen. If following IV push medication, administer flush at same rate as the IV push. Flush volume is determined by type of infusion therapy being given. For non-viscous solutions use: Peripheral IV = 5 mL Midline or Central Line = 10 mL/lumen For viscous solutions (i.e. blood components, parenteral nutrition, contrast media, or after obtaining blood sample) use: Peripheral IV = 10 mL Midline or Central Line = 20 mL/lumen 1438 (Not Given - Provider: Supa Prakash RN - Reason: Other - Comment: pt recieved all daily meds at her facility per her) 0027 (Not Given - Provider: Ruth Topete RN - Reason: Other - Comment: Flushed after IV infusion)1251 (Given - Provider: Diann Artis RN) 0531 (Given - Provider: Ruth Topete RN - Comment: patient sleeping)1137 (Not Given - Provider: Curtis Oshea RN - Reason: Other) PRN Medication Order 03/13/2025 03/14/2025 03/15/2025 acetaminophen (Tylenol) suppository 650 mg(Linked Group 2) 650 mg, Rectal, Every 6 hours PRN, fever, For temp greater than 100.4 F (38 C), Starting on Wed03/13/25 at 1218, Administer if oral route cannot be used. Maximum dose of acetaminophen is 4000 mg from all sources in 24 hours. 1259 (See Alternative - Provider: Diann Artis RN) acetaminophen (Tylenol) tablet 650 mg(Linked Group 2) 650 mg, Oral, Every 6 hours PRN, mild pain (1-3), fever, For temp greater than 100.4 F (38 C), Starting on Wed03/13/25 at 1218, Maximum dose of acetaminophen is 4000 mg from all sources in 24 hours. 1259 (Given - Provider: Diann Artis RN) albuterol 108 (90 Base) MCG/ACT inhaler 2 puff 2 puff, Inhalation, Every 6 hours PRN, wheezing, Starting on Wed03/13/25 at 1253, Administer using an inhaler spacer. bisacodyl (Dulcolax) suppository 10 mg 10 mg, Rectal, Daily PRN, constipation, Starting on Wed03/13/25 at 1254 famotidine (Pepcid) tablet 20 mg 20 mg, Oral, 2 times daily PRN, heartburn, Starting on Wed03/13/25 at 1256 magnesium hydroxide (Milk of Magnesia) 400 MG/5ML suspension 30 mL 30 mL, Oral, Nightly PRN, constipation, Starting on Wed03/13/25 at 1258, Follow dose with 8 oz of water. ondansetron (Zofran) injection 4 mg(Linked Group 3) 4 mg, IntraVENous, Every 6 hours PRN, nausea, vomiting, Starting on Wed03/13/25 at 1220, 1st Line. Give IV if patient is unable to take orally. If inadequate response within 60 minutes, proceed to next-line agent or contact provider if no further options ordered. ondansetron ODT (Zofran-ODT) disintegrating tablet 4 mg(Linked Group 3) 4 mg, Oral, Every 8 hours PRN, nausea, vomiting, Starting on Wed03/13/25 at 1220, 1st Line. If inadequate response within 60 minutes, proceed to next-line agent or contact provider if no further options ordered. Patient should allow tablet to dissolve on tongue. Do not remove from blister pack until just before administering. sodium chloride 0.9 % infusion 5-250 mL/hr, IntraVENous, PRN, if patient receiving piggyback infusions and maintenance fluids are not ordered OR KVO fluids to protect IV site / prevent frequent line interruptions / long duration, Starting on Wed03/13/25 at 1218, For piggyback infusion, administer at same rate as piggyback for a total of 25 mL. Enter 25 mL into dose field and piggyback rate into rate field of order. If piggyback is infusing at a rate less than 100 mL/hr, enter 25 mL into dose field and 100 mL/hr into rate field of order. For KVO fluids, enter rate of 20 mL/hr or less into rate field of order. sodium chloride 0.9% (NS) flush 5-40 mL 5-40 mL, IntraVENous, PRN, line care, After every IV line use, Starting on Wed03/13/25 at 1218, For Line Patency: Peripheral IV = 5 mL; Midline or Central Line = 10 mL/lumen. If following IV push medication, administer flush at same rate as the IV push. Flush volume is determined by type of infusion therapy being given. For non-viscous solutions use: Peripheral IV = 5 mL Midline or Central Line = 10 mL/lumen For viscous solutions (i.e. blood components, parenteral nutrition, contrast media, or after obtaining blood sample) use: Peripheral IV = 10 mL Midline or Central Line = 20 mL/lumen Linked Groups Order Group 1: divalproex (Depakote ER) 24 hr tablet 250 mgJump to med 250 mg, Oral, Every morning, First dose on Wed03/14/25 at 0900, Do not crush, chew, or split. And divalproex (Depakote ER) 24 hr tablet 500 mgJump to med 500 mg, Oral, Every evening, First dose on Wed03/13/25 at 1800, Do not crush, chew, or split. Group 2: acetaminophen (Tylenol) tablet 650 mgJump to med 650 mg, Oral, Every 6 hours PRN, mild pain (1-3), fever, For temp greater than 100.4 F (38 C), Starting on Wed03/13/25 at 1218, Maximum dose of acetaminophen is 4000 mg from all sources in 24 hours. Or acetaminophen (Tylenol) suppository 650 mgJump to med 650 mg, Rectal, Every 6 hours PRN, fever, For temp greater than 100.4 F (38 C), Starting on Wed03/13/25 at 1218, Administer if oral route cannot be used. Maximum dose of acetaminophen is 4000 mg from all sources in 24 hours. Group 3: ondansetron ODT (Zofran-ODT) disintegrating tablet 4 mgJump to med 4 mg, Oral, Every 8 hours PRN, nausea, vomiting, Starting on Wed03/13/25 at 1220, 1st Line. If inadequate response within 60 minutes, proceed to next-line agent or contact provider if no further options ordered. Patient should allow tablet to dissolve on tongue. Do not remove from blister pack until just before administering. Or ondansetron (Zofran) injection 4 mgJump to med 4 mg, IntraVENous, Every 6 hours PRN, nausea, vomiting, Starting on Wed03/13/25 at 1220, 1st Line. Give IV if patient is unable to take orally. If inadequate response within 60 minutes, proceed to next-line agent or contact provider if no further options ordered. Goals (unrecognized section and content) Goals may be documented in a n alternate sectionGoals may be documented in an alternate section FOR RECORDS PERTAINING TO PATIENTS WHO ARE OR HAVE BEEN ENROLLED IN A CHEMICAL DEPENDENCY/SUBSTANCEABUSE PROGRAM, SOME INFORMATION MAY BE OMITTED. This clinical summary was aggregated from multiple sources. Caution should be exercised in using it in the provision of clinical care. This summary normalizes information from multiple sources, and as a consequence, information in this document may materially change the coding, format and clinical context of patient data. In addition, data may be omitted in some cases. CLINICAL DECISIONS SHOULD BE BASED ON THE PRIMARY CLINICAL RECORDS. [facility] [employer] [facility]. provides no warranty or guarantee of the accuracy or completeness of information in this document.
--- OUTSIDE RECORDS SUMMARY | 2025-04-23 02:25 | XMS RPT_ITS | CCD ---
Author Organization [facility] Care Team Providers Care Fairing Man Name Role Phone Dimas Brooke Unavailable Dimas Brooke Unavailable VALENTINA CHOPRA Unavailable Unavailable VALENTINA CHOPRA Unavailable Unavailable VALENTINA CHOPRA Unavailable Unavailable VALENTINA CHOPRA Unavailable Unavailable SUMMER HALEY Unavailable Unavailable DIMAS BROOKE Unavailable Unavailable Jemma Figueroa Unavailable Unavailable Dimas Brooke Primary Care Provider [phone] Dimas Brooke Unavailable Dimas Brooke Admitting Unavailable Dimas Brooke Attending Unavailable [place] Jessica Admitting Unavailable [place], Jessica Attending Unavailable [place], Jessica Admitting Unavailable [place], Jessica Attending Unavailable Leigh Ann Ayala Admitting Unavailable Leigh Ann Ayala Attending Unavailable Bobby Zavala Admitting Unavailable Bobby Zavala Attending Unavailable Dimas Brooke Unavailable [phone] [facility] Primary Care Provider [phone] Jemma Figueroa Unavailable Unavailable Anel Velasquez Unavailable Unavailable Jeanie Ayala Unavailable Unavailable Ivelisse Shaikh Unavailable Unavailable Update Needed Unavailable Unavailable Urban Purdy Unavailable Unavailable Jeanie Ayala Unavailable Unavailable Dimas Brooke Unavailable Nedra Brewer Primary Care Provider Jeanie Ayala Primary Care Provide r Jeanie Ayala Unavailable Unavailable Unavailable Jeanie Ayala Unavailable [phone] I Unavailable Unavailable Anel Velasquez Unavailable Shilpa Douglas Unavailable Unavailable Lit Ledezma Unavailable Unavailable Unavailable Franco Heaton Unavailable Unavailable Unavailable Unavailable Larry Eugene Unavailable Unavailabl Matthew Khan Unavailable Unavailable Jeanie Ayala MD Primary Care Prov ider Dimas Brooke MD Unavailable [phone] [facility], Nedra Diana Primary Care Provider Jemma Figueroa RN Unavailable Unavailable Larry Eugene Unavailable Unavailabl e Nichol Davidsein Unavailable Unavailable Lopez Gutierrez Unavailable Unavailable Unavailable Unavailable Dinesh Chun Unavailable Unavailable Andres Hussein Unavailable Unavailable Reanna Kemp Unavailable Jeanie Ayala MD Primary Care Prov ider Dmias Brooke MD Primary Care Provider Dimas Brooke MD Unavailable [phone] [facility], Nedra Diana Primary Care Provider Jemma Figueroa RN Unavailable [facility]available [facility] Provider Caren Gilman [...] Admitting Unavailable [place], Jeanie Primary Care Unavailable [facility], Dr. Anders Maya Attending Unavailabl e [place], Jeanie Primary [...] Unavailabl e [place], Jeanie Primary Care [facility] And[facility] Maya Attending Unavailabl e [place], Jeanie Primary Care Unavailable Pérez, Dr. Matthew Cornejo Attending Unav ailable Pérez, Dr. Matthew Cornejo Referring Unav ailable [place], Jeanie Primary Care Unavailable Anton, Dr. Lit Crenshaw Attending Unavail able [place], Jeanie Primary Care Unavailable [facility], Ms. Massey Attending Unavail able [place], Jeanie [...] Unavailabl e [place], Jeanie Primary Care Provider Jamie, Dr. Jeanie Crockett Primary Care Unavailable [...] Unavailable Jyoti Gupta MD Primary Care Provider [phone] Jyoti Gupta MD Primary Care Provider RAÚL HUDSON Attending Unavailable ALONSO, JYOTI MAHARAJ Primary Care Unavaila ble [facility], JYOTI MAHARAJ Referring Unavaila ble [place] JACKSON, DAREK OMER Attending Unava ilable [facility], [facility] Primary Care Unavaila ble [facility], JYOTI MAHARAJ Referring Unavaila ble [facility] JYOTI MAHARAJ Primary Care Unavaila ble ITZEL DUMAS Attending Unavailable [facility], JYOTI MAHARAJ Referring Unavaila ble CHANCE LALA Attending Unavailable [facility] Consulting Unavai LISA Jarrell Admitting Unavail able [facility] JYOTI MAHARAJ Primary Care Unavaila ble VALENTINA CHOPRA Referring Unavailable TAVJEANIE ESCUDERO Primary Care Unav ailable [facility] Consulting Sandyvai CAROLYNN Larson Attending Unavailable JYOTI GUPTA Referring Unavaila ble NAVEEN HERNANDEZ Admitting Unavailable TAVJEANIE ESCUDERO Primary Care Unav ailable DESTINEE PRCIE Attending Unavail able SCOTT TOPETE Admitting Unavailab le [facility], JYOTI MAHARAJ Primary Care Unavaila ble [facility] Consulting Unavai labJEANIE Mayorga Primary [...] Provider Jeanie Ayala MD Primary Care Provider Jeanie Ayala MD Unavailable KHALIDA MTZ Attending [...] Provider Dr. Lawson Higgins MD Emergency Provider [phone] Mathew Perez Attending Unavailable Jamison, Sree Primary [...] (5 sources) Phenytoin; Translations: [phenytoin] Drug Allergy [address] Work Phone: Macrolides (antibiotic) (18 sources) Erythromycin; Translations: [Erythromycin Base TABS] Drug Allergy Rash [address] Work Phone: Ondansetron (5 sources) Ondansetron; Translations: [Zofran] Drug Allergy Vomiting [address] Work Phone: Opioid Agonists (20 sources) Codeine; Translations: [Codeine Derivatives] Drug Allergy Unknown [address] Work Phone: Penicillins (antibiotic) (13 sources) Penicillins; Translations: [Penicillins] Drug Allergy Rash, Unknown [address] Work Phone: Promethazine (14 sources) Promethazine; Translations: [Phenergan TABS] Drug Allergy Other [address] Work Phone: Comment on above: nausia/emesis. (20 sources) acetaminophen / HYDROcodone; Translations: [HYDROCODONE-ACET AMINOPHEN] Propensity to adverse reactions to drug 8 Other (See Comments), Unknown, Other [facility] (20 sources) codeine; Translations: [Codeine Derivatives] Propensity to adverse reactions to drug 6 Other (See Comments), Unknown, Other, Rash, Nausea And Vomiting [facility] Work Phone: (20 sources) erythromycin; Translations: [ERYTHROMYCIN] Propensity to adverse reactions to drug 5 Unknown, Rash [facility] Work Phone: (20 sources) gabapentin; Translations: [GABAPENTIN] Propensity to adverse reactions to drug 7 GI Intolerance, Nausea And Vomiting, Unknown [facility] Work Phone: (20 sources) Iodine Compounds Propensity to adverse reactions to drug 8 [facility] (20 sources) morphine; Translations: [MORPHINE SULFATE] Propensity to adverse reactions to drug 6 Other (See Comments) [facility] Work Phone: (20 sources) Penicillins; Translations: [PENICILLINS] Propensity to adverse reactions to drug 5 Rash [facility] Work Phone: (20 sources) promethazine; Translations: [Phenergan] Propensity to adverse reactions to drug 5 Other (See Comments), Unknown, Other, Nausea And Vomiting [facility] (20 sources) traMADol; Translations: [tramadol] Propensity to adverse reactions to drug 6 Unknown, Rash [facility] Work Phone: (20 sources) CT: IODINATED CONTRAST- ORAL AND IV DYE Propensity to adverse reactions to drug 8 [facility] (5 sources) promethazine; Translations: [PROMETHAZINE HCL] Drug Allergy 5 Vomiting [facility] Rep[facility] (20 sources) OTHER; Translations: [OTHER] Propensity to adverse reactions (disorder) 5 [facility] (20 sources) HYDROmorphone; Translations: [Dilaudid] Drug Allergy 8 Unknown, Rash, Nausea and vomiting [facility] (20 sources) ondansetron; Translations: [ONDANSETRON HCL] Drug Allergy 8 Other (See Comments), Other [facility] (20 sources) Azithromycin; Translations: [Azithromycin TABS] Drug Allergy 7 Unknown, Rash, Nausea And Vomiting [facility] [address] Work Phone: (20 sources) Penicillins; Translations: [Penicillins] drug allergy Rash, Unknown [facility] [address] [place] Work Phone: (20 sources) Ondansetron; Translations: [Zofran] Drug Allergy Vomiting [facility] Work Phone: (20 sources) Phenytoin; Translations: [phenytoin] Drug Allergy 1 Unknown [facility] Work Phone: (18 sources) Promethazine Drug Allergy Other [facility] Work Phone: Comment on above: nausia/emesis. (9 sources) Acetaminophen; Translations: [ACETAMINOPHEN] Drug Allergy 7 Rash [facility] (20 sources) Promethazine; Translations: [Phenergan TABS] Drug Allergy [facility] Work Phone: (20 sources) HYDROcodone; Translations: [HYDROCODONE] Drug Allergy 7 Rash, Unknown [facility] (20 sources) Morphine Drug Allergy 6 Other, Unknown, Nausea And Vomiting [facility] (1 source) Penicillins Propensity to adverse reactions to drug 6 Rash [facility] (20 sources) Penicillins Propensity to adverse reactions to drug 6 Rash, Unknown [facility] (20 sources) Acetaminophen / HYDROcodone; Translations: [Vicodin TABS] Drug Allergy [address] Work Phone: (3 sources) gabapentin Drug Allergy Unknown [facility] (3 sources) HYDROmorphone Drug Allergy Unknown [facility] (20 sources) Acetaminophen Drug Allergy 7 Rash [facility] (20 sources) Ondansetron Drug Allergy 7 Other, Nausea And Vomiting [facility] (20 sources) Penicillins Drug Allergy 5 Rash, Unknown [facility] (20 sources) Erythromycin Base; Translations: [ERYTHROMYCIN BASE] Drug Allergy 7 Rash, Unknown [facility] (3 sources) Azithromycin; Translations: [AZITHROMYCIN] Drug Allergy 3 [facility] Repository (1 source) Penicillins Drug Allergy 3 Unknown [facility] Work Phone: (3 sources) HYDROcodone; Translations: [hydrocodone bitartrate] Drug Allergy 5 Rash [facility] (1 source) Acetaminophen Drug Allergy 5 [facility] Repository (1 source) Codeine Drug Allergy 5 [facility] Rep[facility] (1 source) gabapentin Drug Allergy 5 [facility] Rep[facility] (1 source) HYDROcodone Drug Allergy 5 [facility] Rep[facility] (1 source) HYDROmorphone Drug Allergy 5 [facility] Repository (1 source) Morphine Drug Allergy 5 [facility] Rep[facility] (1 source) Ondansetron Drug Allergy 5 [facility] Repository (1 source) Penicillins Drug allergy (disorder) 5 [facility] Repository (1 source) traMADol Drug Allergy 5 [facility] Repository Medications Current Medications Medication Drug Class(es) [...] mg/ml ophthalmic solution (14 sources) Plasma Volume Manual Winder, Non-Standardized Chemical Allergen Artificial Tears ophthalmic solution [...] 20 mg/ml oral suspension (4 sources) Uncompetitive I-unzgjs-Q-aspartate Receptor Antagonist, Sigma-1 Agonist guaiFENesin-dextrome thorphan (Robitussin [...] 2021 11:42am take 2 tablets by mo [facility] once daily famotidine (PEPCID) 10 MG tablet Take 2 (two) tablets (20 mg total) by mouth daily . Active take 6 tablets by mo [facility] once daily famotidine 20 mg oral tablet [...] 2021 11:24am take 3 tablets by mo [facility] every six hours as needed guaiFENesin (Humibid 3) 400 MG tablet Ta ke 400 mg by mouth every 6 hours as needed. Active take 1 tablet by [facility] every six hours as needed guaiFENesin 400 [...] / neomycin 3.5 mg/ml / polymyxin b 56335 unt/ml otic solution (9 sources) Aminoglycoside Antibacterial, Polymyxin-class Antibacterial, Corticosteroid Start: 01-12-2023 End: 01-19-2023 ejufqhyu-puktazozt-TP (Cortisporin) otic solution Indications: Otalgia of both ears Administer 2 drops into the right ear in the morning and 2 drops at noon and 2 drops in the evening and 2 drops before bedtime. Do all this for 7 days. 1 mL 0 01/12/2023 01/19/2023 Active Start: 07-17-2021 End: 11-04-2021 Lmomiujg-Ucaybclji-LT 1 % Ot ic Solution INSTILL 4 [...] 4 mg naloxone (NARCAN) 4 mg/actua tion [place] (3 sources) Start: 06-06-2024 naloxone (NARC AN) 4 mg/actuation [place] Administer 1 spray into one nostril for known or suspected opioid overdose. If patient worsens or does not respond, may repeat in 2-3 minutes. . 2 each 06/06/2024 Active Start: 06-06-2024 naloxone (NARC AN) 4 mg/actuation [place] Administer 1 spray into one nostril for [...] 1:00am take 1 tablet by mouth once dadnre y cyanocobalamin, vitamin B-12, (Vitamin B-12) 1,000 [...] (Therapy completed) take 2 tablets by mo [facility] every eight hours as needed acetaminophen (TYLENOL) 325 MG tablet Take 2 (two) tablets (650 mg total) by mouth every 8 (eight) hours as needed (mild pain) . Active take 1 tablet [facility] every eight hours as needed acetaminophen [...] DO Active take 2 tablets by mo [facility] every four hours as needed for pain acetaminophen (TYLENOL) 325 MG tablet Take 2 (two) tablets (650 mg total) by mouth every 4 (four) hours as needed for pain . 0 Active Acetaminophen 50 0 MG Oral Tablet Quantity: 0 Refills: 0 Ordered: 07-Aug-2019 DO Active [id number] 200 actuat albuter ol 0.09 mg/actuat metered [...] CHEW. docusate sodium 50 mg / sennosides, jail 8.6 mg oral tablet (20 sources) Start: [...] 2024 12:28pm Start: 12-05-2020 End: 12-03-2020 take 44806 [IU] by mouth every week 50,000 Units, Oral, Weekly, First dose on [place] 2/18/21 at 0900 End: 01-01-2024 take 1 capsule by mouth once ergocalciferol (ERGOCALCI FEROL) 1,250 mcg (50,000 unit) capsule Take 1 (one) capsule (50,000 Units total) by mouth once a week Every . 0 01/01/2024 Discontinued take 1 capsule by [facility] every week Drisdol ; 5000 unit(s) orally. tke 1 capsule by mouth every week on Quantity: 0 Refills: 0 Ordered: 08-Sep-2021 Johana Hernandez Status: Other Generic Substitution Allowed take 1 capsule by [facility] every week Drisdol ; 5000 [...] ALEXIS, Jeanie Start : 23-Nov-2022 Active levonorgestrel 0.566020 mg/hr intrauterine system (20 sources) Progestin, Progestin-containin [...] Start: 06-05-2021 take 1 capsule by mo [facility] once daily Levothyroxine 25 mcg capsule Active [...] meet caloric needs. take 1 tablet by [facility] once daily levothyroxine 25 mcg (0.025 [...] 0900 Start: 06-05-2021 take 1 capsule by [facility] at bedtime Loratadine 10 mg [...] Status: Other Generic Substitution Allowed Comments: [employer] law prohibits the transfer of this drug [...] (Entered in Error) take 1 tablet by [facility] once daily at bedtime Melatonin 3 mg [...] 0-10 mL of mixture polyethylene glycol 3350 54452 mg powder for oral solution (2 sources) [...] 10-05-2023 regadenoson (Lexiscan) injection 0.4 mg sennosides, jail 8.6 mg oral tablet (2 sources) Start: 12-31-2023 End: 01-01-2024 take 1 tablet by mouth twice daily as needed for constipation 8.6 mg (1 tablet), Oral, 2 times daily PRN, constipation, Starting on Wed12/31/23 at 2215 Start: 03-16-2019 End: 03-16-2019 take 1 tablet by mouth twice daily as needed for constipation 8.6 mg (1 tablet), Oral, 2 times daily PRN, constipation, Starting [facility] 03/16/19 at 0822 sertraline 50 mg oral [...] 0 01/01/2024 Discontinued take 1 capsule by [facility] once daily sertraline 150 mg [...] 08-16-2023 Episodic Other aftercare (1 source) Other intermediate (current) drug therapy; Translations: [Other intermediate (current) drug therapy] Onset: 3 Episodic Other aftercare (1 source) Surgical follow-up; Translations: [Encounter for follow-up examination after completed treatment for conditions other than malignant neoplasm] 10-29-2023 Episodic Other aftercare (2 sources) H/O: high risk medication; Translations: [Other rat exterminator (current) drug therapy] 08-26-2021 Episodic Other circulatory [...] Episodic Comment on above: 02/21/2021- benign; 03/06/2022; [id number]/2021- benign; Residual codes; unclassified (6 sources) Acquired [...] Auto (Unsp spec) [#/Vol] 2.18 10*3/uL 0.83-4.51 [facility] Absolute neutrophil countOrd ered By: Lawson Higgins on 04-04-2025 Neutrophils (Bld) [#/Vol] 6.3 10*3/uL 2.0-7.7 [facility] Anion gap in Serum or Plasma Ordered By: Lawson Higgins on 04-04-2025 Anion gap [Moles/Vol] 13 mmol/L 5-15 [facility] Automated lymphocyte count a s percentage of total leukocytesOrdered By: Lawson Higgins on 04-04-2025 Lymphocytes/100 WBC Auto (Unsp spec) 22.8 % - [facility] BUN/creatinine ratioOrdered By: Lawson Higgins on 04-04-2025 Urea nitrogen/Creatinine [Mass ratio] 17.7 mg/mg - [facility] Basic Metabolic Profile (BMP )on 04-04-2025 BUN/CRE 17.7 RATIO Normal - [facility] Comment on above: Performed By: #### L 500.2500, L100.0100 #### [facility] [address] [place], [address] Calcium [Mass/Vol] 10.0 mg/dL Normal 7.6-11.0 [facility] Comment on above: Performed By: #### L 500.2500, L100.0100 #### [facility] [address] [place], [address] Chloride [Moles/Vol] 99 mmol/L Normal 98-108 [facility] Comment on above: Performed By: #### L 500.2500, L100.0100 #### [facility] [address] [place], [address] CO2 [Moles/Vol] 24.2 mmol/L Normal 21.0-32.0 [facility] Comment on above: Performed By: #### L 500.2500, L100.0100 #### [facility] [address] [place], [address] Creatinine [Mass/Vol] 1.50 mg/dL High 0.70-1.20 [facility] Comment on above: Performed By: #### L 500.2500, L100.0100 #### [facility] [address] [place], [address] ECRCL 39.97 ml/min Low 50-250 [facility] Comment on above: Performed By: #### L 500.2500, L100.0100 #### [facility] [address] [place], [address] GAP 13 Normal 5-15 [facility] Comment on above: Performed By: #### L 500.2500, L100.0100 #### [facility] [address] [place], [address] GFR/1.73 sq M.predicted among non-blacks MDRD (S/P/Bld) [Vol rate/Area] 42 mL/min/{1.73_m2} Low >60 [facility] Comment on above: Result Comment: mL/m in/1.73m2 CKD-EPI Creatinine Equation (2020) Performed By: #### L 500.2500, L100.0100 #### [facility] [address] [place], [address] Glucose [Mass/Vol] 94 mg/dL Normal 70-99 [facility] Comment on above: Performed By: #### L 500.2500, L100.0100 #### [facility] [address] [place], [address] Potassium [Moles/Vol] 5.2 mmol/L High 3.3-5.1 [facility] Comment on above: Result Comment: Hemo lysis present, Results??could be affected. ?? Performed By: #### L 500.2500, L100.0100 #### [facility] [address] [place], [address] Sodium [Moles/Vol] 137 mmol/L Normal 133-145 [facility] Comment on above: Performed By: #### L 500.2500, L100.0100 #### [facility] [address] [place], [address] Urea nitrogen [Mass/Vol] 27 mg/dL High 4-19 [facility] Comment on above: Performed By: #### L 500.2500, L100.0100 #### [facility] [address] [place], [address] Basophil percentageOrdered B y: Lawson Higgins on 04-04-2025 Basophils/100 WBC (Bld) 0.3 % 0-1 [facility] CBC W/Diff, Automatedon 03-18 Absolute Lymph 2.18 X10 3/uL Normal 0.83-4.51 [facility] Comment on above: Performed By: #### L 500.2500, L100.0100 #### [facility] [address] [place], [address] Absolute Neut 6.3 X10 3/uL Normal 2.0-7.7 [facility] Comment on above: Performed By: #### L 500.2500, L100.0100 #### [facility] [address] [place], [address] Basophils/100 WBC (Bld) 0.3 % Normal 0-1 [facility] Comment on above: Performed By: #### L 500.2500, L100.0100 #### [facility] [address] [place], [address] Eosinophils/100 WBC (Bld) 0.4 % Normal 0-5 [facility] Comment on above: Performed By: #### L 500.2500, L100.0100 #### [facility] [address] [place], [address] Erythrocyte distribution width (RBC) [Ratio] 12.8 % Normal 11.6-14.6 [facility] Comment on above: Performed By: #### L 500.2500, L100.0100 #### [facility] [address] [place], [address] Hematocrit (Bld) [Volume fraction] 46.2 % Normal 37-47 [facility] Comment on above: Performed By: #### L 500.2500, L100.0100 #### [facility] [address] [place], [address] Hemoglobin (Bld) [Mass/Vol] 16.0 g/dL High 12.0-15.0 [facility] Comment on above: Performed By: #### L 500.2500, L100.0100 #### [facility] [address] [place], [address] IG% 0.500 Normal 0.0-0.9 [facility] Comment on above: Result Comment: IG% - Immature Granulocytes (promyelocytes, myelocytes and metamyelocytes) > 1% indicates that a LEFT SHIFT is Present. Performed By: #### L 500.2500, L100.0100 #### [facility] [address] [place], [address] Lymphocytes/100 WBC (Bld) 22.8 % Normal 19-41 [facility] Comment on above: Performed By: #### L 500.2500, L100.0100 #### [facility] [address] [place], [address] MCH (RBC) [Entitic mass] 29.9 pg Normal 27.0-32.0 [facility] Comment on above: Performed By: #### L 500.2500, L100.0100 #### [facility] [address] [place], [address] MCHC (RBC) [Mass/Vol] 34.6 g/dL Normal 32-36 [facility] Comment on above: Performed By: #### L 500.2500, L100.0100 #### [facility] [address] [place], [address] MCV (RBC) [Entitic vol] 86.4 fL Normal 81-99 [facility] Comment on above: Performed By: #### L 500.2500, L100.0100 #### [facility] [address] [place], [address] Monocytes/100 WBC (Bld) 10.3 % High 0-10 [facility] Comment on above: Performed By: #### L 500.2500, L100.0100 #### [facility] [address] [place], [address] Neutrophils/100 WBC (Bld) 65.7 % Normal 47-70 [facility] Comment on above: Performed By: #### L 500.2500, L100.0100 #### [facility] [address] [place], [address] Nucleated RBC (Bld) [#/Vol] 0 10*3/uL Normal 0-5 [facility] Comment on above: Performed By: #### L 500.2500, L100.0100 #### [facility] [address] [place], [address] Platelet mean volume (Bld) [Entitic vol] 10.7 fL Normal 6.2-12.0 [facility] Comment on above: Performed By: #### L 500.2500, L100.0100 #### [facility] [address] [place], [address] Platelets (Bld) [#/Vol] 159 10*3/uL Normal 150-450 [facility] Comment on above: Performed By: #### L 500.2500, L100.0100 #### [facility] [address] [place], [address] RBC (Bld) [#/Vol] 5.35 10*6/uL Normal 4.2-5.4 [facility] Comment on above: Performed By: #### L 500.2500, L100.0100 #### [facility] [address] [place], [address] RDW SD 39.6 fl Normal 35.1-43.9 [facility] Comment on above: Performed By: #### L 500.2500, L100.0100 #### [facility] [address] [place], [address] WBC (Bld) [#/Vol] 9.6 10*3/uL Normal 4.4-11.0 [facility] Comment on above: Performed By: #### L 500.2500, L100.0100 #### [facility] Laboratory [address] [place], [address] Carbon dioxide, total [Moles /volume] in Central venous bloodOrdered By: Lawson Higgins on 04-04-2025 CO2 [Moles/Vol] 24.2 mmol/L 21.0-32.0 [facility] Chloride assayOrdered By: Kalpana Higgins on 04-04-2025 Chloride [Moles/Vol] 99 mmol/L 98-108 [facility] Emergency Department Summary on 04-04-2025 Emergency Department Summary [facility] Medical Records Department [address] [place] [address] Emergency Department Summary 04/04/25 MR#: [id number] Acct: [id number] Name: REEMA SHAH Rep #: [id number] : 1975 49 From: Lawson Higgins MD [...] is a 49-year-old woman. Patient presents from skilled nursing by ambulance for psychiatric eval. Reportedly patient [...] Prior similar symptoms: Yes (Per the lysin addiction social worker Lori who was asked to see her to help determi) Recent Illness/Hospitalization : No PFSH [facility] Medical History Borderline personality disorder Long-term use of high-risk medication Systolic heart failure Major depressive disorder Tremor History of DE (myocardial infarction) History of TIA (transient ischemic [...] 1 - 2 puff inhalation Q6H PRN SC N 03/05/20 Unknown History aerosol inhaler Sob [...] Histo ry (more content not included)... Normal [facility] Eosinophil percentageOrdered By: Lawson Higgins on 04-04-2025 Eosinophils/100 WBC (Bld) 0.4 % 0-5 [facility] Erythrocyte distribution wid th ratioOrdered By: Lawson Higgins on 04-04-2025 Erythrocyte distribution width (RBC) [Ratio] 12.8 % 11.6-14.6 [facility] Erythrocyte distribution wid th standard deviationOrdered By: Lawson Higgins on 04-04-2025 Erythrocyte distribution width (RBC) [Ratio] 39.6 fl 35.1-43.9 [facility] Foot min 3 Viewson 5 Foot min 3 Views [facility] Imaging Services [address] [place] [address] Foot min 3 Views MR#: [id number] Acct: [id number] Name: REEMA SHAH Rep #: [id number] : 1975 F 49 From: Maxine Morgan MD PCP: Dr. Sree Jamison MD Status: REG ER Study: Foot min 3 Views Date of Exam: 04/04/25 Exam# [id number] Ordering Dr: Lawson Higgins MD PROCEDURE: FOOT MIN 3 VIEWS 04/04/2025 REASON FOR EXAM: INJURY/PAIN TECHNIQUE: FOOT MIN 3 VIEWS COMPARISON: 11/04/2024. FINDINGS: No evidence acute fracture or dislocation. Mild degenerative changes of the foot. The soft tissues are unremarkable. RAD/Foot min 3 Views IMPRESSION: NO ACUTE FRACTURE OR DISLOCATION. Reading Location: [id number] CC: Dr. Sree Jamison MD; Dr. Lawson Higgins MD Bulker: Signed Normal [facility] Glomerular filtration rate ( GFR) estimation/1.73 sq m using serum, plasma, or whole bOrdered By: Lawson Higgins on 04-04-2025 GFR/1.73 sq M.predicted among non-blacks MDRD (S/P/Bld) [Vol rate/Area] 42 mL/min/{1.73_m2} Low >60 [facility] Comment on above: mL/min/1.73m2 CKD-EP I Creatinine Equation (2020) Hematocrit Auto (Bld) [Volum e fraction]Ordered By: Lawson Higgins on 04-04-2025 Hematocrit (Bld) [Volume fraction] 46.2 % 37-47 [facility] Hemoglobin measurementOrdere d By: Lawson Higgins on 04-04-2025 Hemoglobin (Bld) [Mass/Vol] 16.0 g/dL High 12.0-15.0 [facility] Immature granulocytes/100 WB C Auto (Bld)Ordered By: Lawson Higgins on 04-04-2025 Immature granulocytes/100 WBC (Bld) 0.500 % 0.0-0.9 [facility] Comment on above: IG% - Immature Granu locytes (promyelocytes, myelocytes and metamyelocytes) > 1% indicates that a LEFT SHIFT is Present. MCV (mean corpuscular volume ) determinationOrdered By: Lawson Higgins on 04-04-2025 MCV (RBC) [Entitic vol] 86.4 fL 81-99 [facility] Mean corpuscular hemoglobin (MCH) determinationOrdered By: Lawson Ihggins on 04-04-2025 MCH (RBC) [Entitic mass] 29.9 pg 27.0-32.0 [facility] Mean corpuscular hemoglobin concentration (MCHC) determinationOrdered By: Lawson Higgins on 04-04-2025 MCHC (RBC) [Mass/Vol] 34.6 g/dL 32-36 [facility] Mean platelet volume determi nationOrdered By: Lawson Higgins on 04-04-2025 Platelet mean volume (Bld) [Entitic vol] 10.7 fL 6.2-12.0 [facility] Monocyte percentageOrdered B y: Lawson Higgins on 04-04-2025 Monocytes/100 WBC (Bld) 10.3 % High 0-10 [facility] Neutrophil percentageOrdered By: Lawson Higgins on 04-04-2025 Neutrophils/100 WBC (Bld) 65.7 % 47-70 [facility] Nucleated red blood cell per centageOrdered By: Lawsoncorky Higgins on 04-04-2025 Nucleated RBC/100 WBC (Bld) [Ratio] 0 % 0-5 [facility] Platelet countOrdered By: corky Higgins on 04-04-2025 Platelets (Bld) [#/Vol] 159 10*3/uL 150-450 [facility] Potassium measurement (mass/ volume)Ordered By: Lawsoncorky Higgins on 04-04-2025 Potassium (Unsp spec) [Mass/Vol] 5.2 mmol/L High 3.3-5.1 [facility] Comment on above: Hemolysis present, R esults could be affected. RBC Auto (Bld) [#/Vol]Ordere d By: Lawson Higgins on 04-04-2025 RBC (Bld) [#/Vol] 5.35 10*6/uL 4.2-5.4 [facility] Serum creatinine measurement (mass/volume)Ordered By: Lawson Higgins on 04-04-2025 Creatinine [Mass/Vol] 1.50 mg/dL High 0.70-1.20 [facility] Serum glucose measurement (m ass/volume)Ordered By: Lawsoncorky Higgins on 04-04-2025 Glucose [Mass/Vol] 94 mg/dL 70-99 [facility] Serum or plasma calcium flores urement (mass/volume)Ordered By: Lawsoncorky Higgins on 04-04-2025 Calcium [Mass/Vol] 10.0 mg/dL 7.6-11.0 [facility] Serum or plasma urea nitroge n measurement (mass/volume)Ordered By: Lawson Higgins on 04-04-2025 Urea nitrogen [Mass/Vol] 27 mg/dL High 4-19 [facility] Sodium levelOrdered By: Lawsoncorky Higgins on 04-04-2025 Sodium [Moles/Vol] 137 mmol/L 133-145 [facility] White blood cell (WBC) count Ordered By: Lawson Higgins on 04-04-2025 WBC (Bld) [#/Vol] 9.6 10*3/uL 4.4-11.0 [facility] Absolute lymphocyte countOrd ered By: Ian Starr on 03-21-2025 Lymphocytes Auto (Unsp spec) [#/Vol] 1.08 10*3/uL 0.83-4.51 [facility] Absolute neutrophil countOrd ered By: Ian Starr on 03-21-2025 Neutrophils (Bld) [#/Vol] 3.1 10*3/uL 2.0-7.7 [facility] Anion gap in Serum or Plasma Ordered By: Ian Starr on 03-21-2025 Anion gap [Moles/Vol] 12 mmol/L 5-15 [facility] Automated lymphocyte count a s percentage of total leukocytesOrdered By: Ian Starr on 03-21-2025 Lymphocytes/100 WBC Auto (Unsp spec) 23.2 % 19-41 [facility] BUN/creatinine ratioOrdered By: Ian Starr on 03-21-2025 Urea nitrogen/Creatinine [Mass ratio] 23.5 mg/mg High 10- [facility] Basic Metabolic Profile (BMP )on 03-21-2025 BUN/CRE 23.5 RATIO High 10- [facility] Comment on above: Performed By: #### L 500.2500, L501.8100, L501.5200, L100.0100 #### [facility] [address] [place], [address] Calcium [Mass/Vol] 9.2 mg/dL Normal 7.6-11.0 [facility] Comment on above: Performed By: #### L 500.2500, L501.8100, L501.5200, L100.0100 #### [facility] [address] [place], [address] Chloride [Moles/Vol] 102 mmol/L Normal 98-108 [facility] Comment on above: Performed By: #### L 500.2500, L501.8100, L501.5200, L100.0100 #### [facility] [address] [place], [address] CO2 [Moles/Vol] 23.8 mmol/L Normal 21.0-32.0 [facility] Comment on above: Performed By: #### L 500.2500, L501.8100, L501.5200, L100.0100 #### [facility] [address] [place], [address] Creatinine [Mass/Vol] 1.39 mg/dL High 0.70-1.20 [facility] Comment on above: Performed By: #### L 500.2500, L501.8100, L501.5200, L100.0100 #### [facility] [address] [place], [address] ECRCL 43.92 ml/min Low 50-250 [facility] Comment on above: Performed By: #### L 500.2500, L501.8100, L501.5200, L100.0100 #### [facility] [address] [place], [address] GAP 12 Normal 5-15 [facility] Comment on above: Performed By: #### L 500.2500, L501.8100, L501.5200, L100.0100 #### [facility] [address] [place], [address] GFR/1.73 sq M.predicted among non-blacks MDRD (S/P/Bld) [Vol rate/Area] 46 mL/min/{1.73_m2} Low >60 [facility] Comment on above: Result Comment: mL/m in/1.73m2 CKD-EPI Creatinine Equation (2020) Performed By: #### L 500.2500, L501.8100, L501.5200, L100.0100 #### [facility] [address] [place], [address] Glucose [Mass/Vol] 93 mg/dL Normal 70-99 [facility] Comment on above: Performed By: #### L 500.2500, L501.8100, L501.5200, L100.0100 #### [facility] [address] [place], [address] Potassium [Moles/Vol] 4.5 mmol/L Normal 3.3-5.1 [facility] Comment on above: Performed By: #### L 500.2500, L501.8100, L501.5200, L100.0100 #### [facility] [address] [place], [address] Sodium [Moles/Vol] 138 mmol/L Normal 133-145 [facility] Comment on above: Performed By: #### L 500.2500, L501.8100, L501.5200, L100.0100 #### [facility] [address] [place], [address] Urea nitrogen [Mass/Vol] 33 mg/dL High 4-19 [facility] Comment on above: Performed By: #### L 500.2500, L501.8100, L501.5200, L100.0100 #### [facility] [address] [place], [address] Basophil percentageOrdered B y: Ian Starr on 03-21-2025 Basophils/100 WBC (Bld) 0.6 % 0-1 [facility] Bilirubin Test strip Ql (U)O rdered By: Ian Starr on 03-21-2025 Bilirubin Ql (U) Negative Negative [facility] CBC W/Diff, Automatedon Absolute Lymph 1.08 X10 3/uL Normal 0.83-4.51 [facility] Comment on above: Performed By: #### L 500.2500, L501.8100, L501.5200, L100.0100 #### [facility] [address] [place], [address] Absolute Neut 3.1 X10 3/uL Normal 2.0-7.7 [facility] Comment on above: Performed By: #### L 500.2500, L501.8100, L501.5200, L100.0100 #### [facility] [address] [place], [address] Basophils/100 WBC (Bld) 0.6 % Normal 0-1 [facility] Comment on above: Performed By: #### L 500.2500, L501.8100, L501.5200, L100.0100 #### [facility] [address] [place], [address] Eosinophils/100 WBC (Bld) 0.6 % Normal 0-5 [facility] Comment on above: Performed By: #### L 500.2500, L501.8100, L501.5200, L100.0100 #### [facility] [address] [place], [address] Erythrocyte distribution width (RBC) [Ratio] 12.2 % Normal 11.6-14.6 [facility] Comment on above: Performed By: #### L 500.2500, L501.8100, L501.5200, L100.0100 #### [facility] [address] [place], [address] Hematocrit (Bld) [Volume fraction] 40.8 % Normal 37-47 [facility] Comment on above: Performed By: #### L 500.2500, L501.8100, L501.5200, L100.0100 #### [facility] [address] [place], [address] Hemoglobin (Bld) [Mass/Vol] 14.2 g/dL Normal 12.0-15.0 [facility] Comment on above: Performed By: #### L 500.2500, L501.8100, L501.5200, L100.0100 #### [facility] [address] [place], [address] IG% 0.600 Normal 0.0-0.9 [facility] Comment on above: Result Comment: IG% - Immature Granulocytes (promyelocytes, myelocytes and metamyelocytes) > 1% indicates that a LEFT SHIFT is Present. Performed By: #### L 500.2500, L501.8100, L501.5200, L100.0100 #### [facility] [address] [place], [address] Lymphocytes/100 WBC (Bld) 23.2 % Normal 19-41 [facility] Comment on above: Performed By: #### L 500.2500, L501.8100, L501.5200, L100.0100 #### [facility] [address] [place], [address] MCH (RBC) [Entitic mass] 30.1 pg Normal 27.0-32.0 [facility] Comment on above: Performed By: #### L 500.2500, L501.8100, L501.5200, L100.0100 #### [facility] [address] [place], [address] MCHC (RBC) [Mass/Vol] 34.8 g/dL Normal 32-36 [facility] Comment on above: Performed By: #### L 500.2500, L501.8100, L501.5200, L100.0100 #### [facility] [address] [place], [address] MCV (RBC) [Entitic vol] 86.4 fL Normal 81-99 [facility] Comment on above: Performed By: #### L 500.2500, L501.8100, L501.5200, L100.0100 #### [facility] [address] [place], [address] Monocytes/100 WBC (Bld) 9.0 % Normal 0-10 [facility] Comment on above: Performed By: #### L 500.2500, L501.8100, L501.5200, L100.0100 #### [facility] [address] [place], [address] Neutrophils/100 WBC (Bld) 66.0 % Normal 47-70 [facility] Comment on above: Performed By: #### L 500.2500, L501.8100, L501.5200, L100.0100 #### [facility] [address] [place], [address] Nucleated RBC (Bld) [#/Vol] 0 10*3/uL Normal 0-5 [facility] Comment on above: Performed By: #### L 500.2500, L501.8100, L501.5200, L100.0100 #### [facility] [address] [place], [address] Platelet mean volume (Bld) [Entitic vol] 10.0 fL Normal 6.2-12.0 [facility] Comment on above: Performed By: #### L 500.2500, L501.8100, L501.5200, L100.0100 #### [facility] [address] [place], [address] Platelets (Bld) [#/Vol] 109 10*3/uL Low 150-450 [facility] Comment on above: Performed By: #### L 500.2500, L501.8100, L501.5200, L100.0100 #### [facility] [address] [place], [address] RBC (Bld) [#/Vol] 4.72 10*6/uL Normal 4.2-5.4 [facility] Comment on above: Performed By: #### L 500.2500, L501.8100, L501.5200, L100.0100 #### [facility] [address] [place], [address] RDW SD 38.5 fl Normal 35.1-43.9 [facility] Comment on above: Performed By: #### L 500.2500, L501.8100, L501.5200, L100.0100 #### [facility] [address] [place], [address] WBC (Bld) [#/Vol] 4.7 10*3/uL Normal 4.4-11.0 [facility] Comment on above: Performed By: #### L 500.2500, L501.8100, L501.5200, L100.0100 #### [facility] [address] [place], [address] Carbon dioxide, total [Moles /volume] in Central venous bloodOrdered By: Ian Starr on 03-21-2025 CO2 [Moles/Vol] 23.8 mmol/L 21.0-32.0 [facility] Chloride assayOrdered By: Kika Starr on 03-21-2025 Chloride [Moles/Vol] 102 mmol/L 98-108 [facility] Emergency Department Summary on 03-21-2025 Emergency Department Summary [facility] Medical Records Department [address] [place] [address] Emergency Department Summary 03/21/25 MR#: [id number] Acct: [id number] Name: REEMA SHAH Rep #: [id number] : 1975 49 From: Ian Starr MD PCP: Dr. Sree Jamison MD Status:REG ER Location: ED HPI History of Present Illness Chief Complaint: Seizure Informant: patient Narrative Narrative: 49-year-old female from a skilled nursing currently has seizure activity this morning. The [...] and that has been the case yesterday. [facility] Medical History Borderline personality disorder Long-term use of high-risk medication Systolic heart failure Major depressive disorder Tremor History of DE (myocardial infarction) History of TIA (transient ischemic [...] 1 - 2 puff inhalation Q6H PRN SC N 03/05/20 Unknown History aerosol inhaler Sob [...] bisacodyl 10 mg rectal suppository 10 mg SC DAILY PRN constipation 03/21/25 Unknown History cholecalciferol [...] acetaminophen (From (more content not included)... Normal [facility] Eosinophil percentageOrdered By: Ian Starr on 03-21-2025 Eosinophils/100 WBC (Bld) 0.6 % 0-5 [facility] Erythrocyte distribution wid th ratioOrdered By: Ian Starr on 03-21-2025 Erythrocyte distribution width (RBC) [Ratio] 12.2 % 11.6-14.6 [facility] Erythrocyte distribution wid th standard deviationOrdered By: Ian Starr on 03-21-2025 Erythrocyte distribution width (RBC) [Ratio] 38.5 fl 35.1-43.9 [facility] Glomerular filtration rate ( GFR) estimation/1.73 sq m using serum, plasma, or whole bOrdered By: Ian Starr on 03-21-2025 GFR/1.73 sq M.predicted among non-blacks MDRD (S/P/Bld) [Vol rate/Area] 46 mL/min/{1.73_m2} Low >60 [facility] Comment on above: mL/min/1.73m2 CKD-EP I Creatinine Equation (2020) Hematocrit Auto (Bld) [Volum e fraction]Ordered By: Ian Starr on 03-21-2025 Hematocrit (Bld) [Volume fraction] 40.8 % 37-47 [facility] Hemoglobin measurementOrdere d By: Ian Starr on 03-21-2025 Hemoglobin (Bld) [Mass/Vol] 14.2 g/dL 12.0-15.0 [facility] Hyaline casts LM.LPF (Urine sed) [#/Area]Ordered By: Ian Starr on 03-21-2025 Hyaline casts (Urine sed) [#/Area] 0 /[LPF] 0-5 [facility] Immature granulocytes/100 WB C Auto (Bld)Ordered By: Ian Starr on 03-21-2025 Immature granulocytes/100 WBC (Bld) 0.600 % 0.0-0.9 [facility] Comment on above: IG% - Immature Granu locytes (promyelocytes, myelocytes and metamyelocytes) > 1% indicates that a LEFT SHIFT is Present. Ketones Test strip Ql (U)Ord ered By: Ian Starr on 03-21-2025 Ketones Ql (U) Negative Negative [facility] Lactic Acidon 03-21-2025 Lactate [Moles/Vol] mmol/L Normal 0.0-2.0 [facility] Comment on above: Order Comment: Y Performed By: #### L 500.2500, L100.0100 #### [facility] [place], [address] Lactic acid measurementOrder ed By: Ian Starr on 03-21-2025 Lactate [Moles/Vol] mmol/L 0.0-2.0 [facility] MCV (mean corpuscular volume ) determinationOrdered By: Ian Starr on 03-21-2025 MCV (RBC) [Entitic vol] 86.4 fL 81-99 [facility] Magnesiumon 03-21-2025 Magnesium [Mass/Vol] 2.0 mg/dL Normal 1.5-2.2 [facility] Comment on above: Performed By: #### L 500.2500, L501.8100, L501.5200, L100.0100 #### [facility] [address] [place], [address] Magnesium measurement (mass/ volume)Ordered By: Ian Starr on 03-21-2025 Magnesium (Unsp spec) [Mass/Vol] 2.0 mg/dL 1.5-2.2 [facility] Mean corpuscular hemoglobin (MCH) determinationOrdered By: Ian Starr on 03-21-2025 MCH (RBC) [Entitic mass] 30.1 pg 27.0-32.0 [facility] Mean corpuscular hemoglobin concentration (MCHC) determinationOrdered By: Ian Starr on 03-21-2025 MCHC (RBC) [Mass/Vol] 34.8 g/dL 32-36 [facility] Mean platelet volume determi nationOrdered By: Ian Starr on 03-21-2025 Platelet mean volume (Bld) [Entitic vol] 10.0 fL 6.2-12.0 [facility] Microscopic analysis of urin e for red blood cells (RBC)Ordered By: Ian Starr on 03-21-2025 Microscopic analysis of urine for red blood cells (RBC) 0 SEEN /hpf 0-5 [facility] Monocyte percentageOrdered B y: Ian Starr on 03-21-2025 Monocytes/100 WBC (Bld) 9.0 % 0-10 [facility] Mucus LM Ql (Urine sed)Order ed By: Ian Starr on 03-21-2025 Mucus Ql (Urine sed) 0 SEEN /hpf [facility] Neutrophil percentageOrdered By: Ian Starr on 03-21-2025 Neutrophils/100 WBC (Bld) 66.0 % 47-70 [facility] Nitrite Test strip Ql (U)Ord ered By: Ian Starr on 03-21-2025 Nitrite Ql (U) Negative Negative [facility] Nucleated red blood cell per centageOrdered By: Ian Starr on 03-21-2025 Nucleated RBC/100 WBC (Bld) [Ratio] 0 % 0-5 [facility] Platelet countOrdered By: Kika Starr on 03-21-2025 Platelets (Bld) [#/Vol] 109 10*3/uL Low 150-450 [facility] Potassium measurement (mass/ volume)Ordered By: Ian Starr on 03-21-2025 Potassium (Unsp spec) [Mass/Vol] 4.5 mmol/L 3.3-5.1 [facility] Protein Test strip Ql (U)Ord ered By: Ian Starr on 03-21-2025 Protein Ql (U) 30 mg/dl High Negative [facility] RBC Auto (Bld) [#/Vol]Ordere d By: Ian Starr on 03-21-2025 RBC (Bld) [#/Vol] 4.72 10*6/uL 4.2-5.4 [facility] Serum creatinine measurement (mass/volume)Ordered By: Ian Starr on 03-21-2025 Creatinine [Mass/Vol] 1.39 mg/dL High 0.70-1.20 [facility] Serum glucose measurement (m ass/volume)Ordered By: Ian Starr on 03-21-2025 Glucose [Mass/Vol] 93 mg/dL 70-99 [facility] Serum or plasma calcium flores urement (mass/volume)Ordered By: Ian Starr on 03-21-2025 Calcium [Mass/Vol] 9.2 mg/dL 7.6-11.0 [facility] Serum or plasma urea nitroge n measurement (mass/volume)Ordered By: Ian Starr on 03-21-2025 Urea nitrogen [Mass/Vol] 33 mg/dL High 4-19 [facility] Serum or plasma valproate me asurement (mass/volume)Ordered By: Ian Starr on 03-21-2025 Valproate [Mass/Vol] 24 ug/mL Low 50-100 [facility] Comment on above: Valproic Acid concen trations >100 ug/mL are potentially toxic. Sodium levelOrdered By: Adrian Starr on 03-21-2025 Sodium [Moles/Vol] 138 mmol/L 133-145 [facility] Squamous epithelial cells de tection in urine sediment by light microscopyOrdered By: Ian Starr on 03-21-2025 Epithelial cells.squamous LM Ql (Urine sed) 0-5 SEEN /hpf 5-10 [facility] Urinalysis, Completeon 03-21 CAST,HYALINE 0-5 SEEN Normal 0-5 [facility] Comment on above: Order Comment: COLLE CTOR TO SPECIFY Performed By: #### L 500.2500, L100.0100 #### [facility] [address] [place], [address] EPI,SQUAMOUS 0-5 SEEN Normal 5-10 [facility] Comment on above: Order Comment: AVERY CTOR TO SPECIFY Performed By: #### L 500.2500, L100.0100 #### [facility] [address] [place], [address] WBC 0-5 SEEN Normal 0-5 [facility] Comment on above: Order Comment: AVERY CTOR TO SPECIFY Performed By: #### L 500.2500, L100.0100 #### [facility] [address] [place], [address] BACTERIA 0 SEEN Normal None Seen [facility] Comment on above: Order Comment: AVERY CTOR TO SPECIFY Performed By: #### L 500.2500, L100.0100 #### [facility] [address] [place], [address] Mucus Ql (Urine sed) 0 SEEN Normal [facility] Comment on above: Order Comment: COLLE CTOR TO SPECIFY Performed By: #### L 500.2500, L100.0100 #### [facility] [address] [place], [address] RBC 0 SEEN Normal 0-5 [facility] Comment on above: Order Comment: COLLE CTOR TO SPECIFY Performed By: #### L 500.2500, L100.0100 #### [facility] [address] [place], [place], [id number] Urine clarityOrdered By: Murali Starr on 03-21-2025 Clarity (U) Clear Clear [facility] Urine color determinationOrd ered By: Ian Starr on 03-21-2025 Color (U) Yellow Yellow [facility] Urine glucose detectionOrder ed By: Ian Starr on 03-21-2025 Glucose Ql (U) Normal mg/dl Normal [facility] Urine leukocyte esterase det ection by dipstickOrdered By: Ian Starr on 03-21-2025 Leukocyte esterase Test strip Ql (U) Negative Negative [facility] Urine pHOrdered By: Ian Starr on 03-21-2025 pH (U) 6.0 [pH] 5.0 - 8.0 [facility] Urine sediment bacteria coun t by microscopy (number/high power field)Ordered By: Ian Starr on 03-21-2025 Bacteria LM.HPF (Urine sed) [#/Area] 0 /[HPF] None Seen [facility] Urine specific gravity measu rementOrdered By: Ian Starr on 03-21-2025 Specific gravity (U) [Rel density] 1.015 1.002-1.030 [facility] Urine urobilinogen measureme ntOrdered By: Ian Starr on 03-21-2025 Urobilinogen Ql (U) Normal mg/dl Normal [facility] Valproic Acid (Depakene) Lev woody 03-21-2025 VALPROIC ACID 24 ug/mL Low 50-100 [facility] Comment on above: Result Comment: Valp roic Acid concentrations >100 ug/mL are potentially toxic. Performed By: #### L 500.2500, L501.8100, L501.5200, L100.0100 #### [facility] [address] [place], [place], [id number] White blood cell (WBC) count Ordered By: Ian Starr on 03-21-2025 WBC (Bld) [#/Vol] 4.7 10*3/uL 4.4-11.0 [facility] White blood cell countOrdere d By: Ian Starr on 03-21-2025 White blood cell count 0-5 SEEN /hpf 0-5 [facility] 30on 03-15-2025 30 Problem: Knowledge Deficit Goal: Patient/family/caregive r demonstrates understanding of disease process, treatment plan, medications, and discharge instructions Outcome: Adequate for Discharge Problem: Potential for Compromised Skin Integrity Goal: Skin Integrity is Maintained or Improved Outcome: Adequate for Discharge Problem: Urinary Incontinence Goal: Perineal skin integrity is maintained or improved Outcome: Adequate for Discharge Normal [facility] [id number] 03-15-2025 [id number] Transport requested in Roundtrip. Awaiting time confirmation. Confirmed pickup time of 2:00PM by transport company [employer] at phone number . Location of facility drop off is [facility]. Facility notified via Careport, Ivelisse Duran notified on secure chat. Normal [facility] [id number] Cont's EEG completed . Care team messaged. DC order /Mar completed. MICHAEL completed. INVESTMENT ACCOUNTING CLERK tasked to send to transport for 2:00 PM today to return to [facility], [address] Called facility w tile picker time. Normal [facility] COMPREHENSIVE METABOLIC PANE Rock 03-15-2025 Albumin [Mass/Vol] 3.2 g/dL Low 3.5-5.0 [facility] Comment on above: Performed By: #### L AB17 ####Coal Trimmer Machine Operator: CORNELIA BARRAGAN ([phone])[facility] ([facility])[address] [place] [address] ALP [Catalytic activity/Vol] 103 U/L Normal 40-150 [facility] Comment on above: Performed By: #### L AB17 ####Coal Trimmer Machine Operator: CORNELIA BARRAGAN ([phone])[facility] ([facility])[address] [place] [address] ALT [Catalytic activity/Vol] 21 U/L Normal <30 [facility] Comment on above: Performed By: #### L AB17 ####Coal Trimmer Machine Operator: CORNELIA BARRAGAN ([phone])[facility] ([facility])[address] [place] [address] Anion gap [Moles/Vol] 9 mmol/L Normal 3-13 [facility] Comment on above: Performed By: #### L AB17 ####Coal Trimmer Machine Operator: CORNELIA BARRAGAN ([phone])[facility] ([facility] [place] [address] [place] AST [Catalytic activity/Vol] 28 U/L Normal <34 [facility] Comment on above: Performed By: #### L AB17 ####Coal Trimmer Machine Operator: CORNELIA BARRAGAN ([phone])[facility] ([facility])[address] [place] [address] Bilirubin [Mass/Vol] 0.2 mg/dL Normal <1.2 [facility] Comment on above: Performed By: #### L AB17 ####Coal Trimmer Machine Operator: CORNELIA BARRAGAN ([phone])[facility] ([facility])[address] [place] [address] Calcium [Mass/Vol] 8.9 mg/dL Normal 8.4-10.2 [facility] Comment on above: Performed By: #### L AB17 ####Coal Trimmer Machine Operator: CORNELIA BARRAGAN ([phone])[facility] ([facility])[address] [place] [address] [place] Chloride [Moles/Vol] 105 mmol/L Normal 98-107 [facility] Comment on above: Performed By: #### L AB17 ####Coal Trimmer Machine Operator: CORNELIA BARRAGAN ([phone])[facility] ([facility])[address] [place] [address] [place] CO2 [Moles/Vol] 24 mmol/L Normal 22-29 [facility] Comment on above: Performed By: #### L AB17 ####Coal Trimmer Machine Operator: CORNELIA BARRAGAN ([phone])[facility] ([facility])[address] [place] [address] [place] Creatinine [Mass/Vol] 1.28 mg/dL High 0.57-1.[address] [facility] Comment on above: Performed By: #### L AB17 ####Coal Trimmer Machine Operator: CORNELIA BARRAGAN ([phone])[facility])[address] [place] [address] GLOMERULAR FILTRATION RATE ML/MIN/1.73 SQ M.PREDICTED 50.8 mL/min/1.73m*2 Low >60.0 [facility] Comment on above: Result Comment: Calc ulation based on the Chronic Kidney Disease Epidemiology Collaboration (CKD-EPI) equation refit without adjustment for race Performed By: #### L AB17 ####Coal Trimmer Machine Operator: CORNELIA BARRAGAN ([phone])[facility])[address] [place] [address] Glucose [Mass/Vol] 86 mg/dL Normal 74-100 [facility] Comment on above: Performed By: #### L AB17 ####Coal Trimmer Machine Operator: CORNELIA BARRAGAN ([phone])[address] Potassium [Moles/Vol] 4.9 mmol/L Normal 3.5-5.[address] [facility] Comment on above: Result Comment: [facility] potassium values may be up to 0.5 mmol/L lower than serum values. Performed By: #### L AB17 ####Coal Trimmer Machine Operator: CORNELIA BARRAGAN ([phone])[facility])[address] [place] [address] Protein [Mass/Vol] 6.5 g/dL Normal 6.4-8.3 [facility] Comment on above: Performed By: #### L AB17 ####Coal Trimmer Machine Operator: CORNELIA BARRAGAN ([phone])[facility])[address] [place] [address] [place] Sodium [Moles/Vol] 138 mmol/L Normal 136-145 [facility] Comment on above: Performed By: #### L AB17 ####Coal Trimmer Machine Operator: CORNELIA BARRAGAN ([phone])[facility])[address] [place] [address] [place] Urea nitrogen [Mass/Vol] 28 mg/dL High 9-23 [facility] Comment on above: Performed By: #### L AB17 ####Coal Trimmer Machine Operator: CORNELIA BARRAGAN ([phone])[facility] ([address] Comprehensive metabolic 1998 panelon 03-15-2025 Albumin [Mass/Vol] 3.2 g/dL Low 3.5 - 5.0 g/dL [facility] ALP [Catalytic activity/Vol] 103 U/L 40 - 150 U/L [facility] ALT [Catalytic activity/Vol] 21 U/L NINF - 30 U/L [facility] Anion gap [Moles/Vol] 9 mmol/L 3 - 13 mmol/L [facility] AST [Catalytic activity/Vol] 28 U/L NINF - 34 U/L [facility] Bilirubin [Mass/Vol] 0.2 mg/dL NINF - 1.2 mg/dL [facility] Calcium [Mass/Vol] 8.9 mg/dL 8.4 - 10. 2 mg/dL [facility] Chloride [Moles/Vol] 105 mmol/L 98 - 10 7 mmol/L [facility] CO2 [Moles/Vol] 24 mmol/L 22 - 29 mmol/L [facility] Creatinine [Mass/Vol] 1.28 mg/dL High 0.57 - 1.11 mg/dL [facility] GFR/1.73 sq M.predicted (S/P/Bld) [Vol rate/Area] 50.8 mL/min Low - PINF [facility] Comment on above: Calculation based on the Chronic Kidney Disease Epidemiology Collaboration (CKD-EPI) equation refit without adjustment for race Glucose [Mass/Vol] 86 mg/dL 74 - 100 mg/dL [facility] Interpretation and review of laboratory results Abnormal [facility] Potassium [Moles/Vol] 4.9 mmol/L 3.5 - 5.1 mmol/L [facility] Comment on above: Plasma potassium haley ues may be up to 0.5 mmol/L lower than serum values. Protein [Mass/Vol] 6.5 g/dL 6.4 - 8.3 g/dL [facility] Sodium [Moles/Vol] 138 mmol/L 136 - 145 mmol/L [facility] Urea nitrogen [Mass/Vol] 28 mg/dL High 9 - 23 mg/dL [facility] Nursing Noteon 03-15-2025 Nursing Note Report called and received by [facility] Progress Noteon 03-15-2025 Progress Note Nutrition rescreen completed. Chart reviewed. Patient to be monitored and followed by the diet bakery technician. [facility] 30on 03-14-2025 30 Problem: Knowledge Deficit Goal: Patient/family/caregive r demonstrates understanding of disease process, treatment plan, medications, and discharge instructions Outcome: Progressing Problem: Potential for Compromised Skin Integrity Goal: Skin Integrity is Maintained or Improved Outcome: Progressing Goal: Nutritional status is improving Outcome: Progressing Problem: Urinary Incontinence Goal: Perineal skin integrity is maintained or improved Outcome: Progressing [facility] 30 Problem: Knowledge Deficit Goal: Patient/family/caregive r demonstrates understanding of disease process, treatment plan, medications, and discharge instructions Outcome: Progressing Problem: Potential for Compromised Skin Integrity Goal: Skin Integrity is Maintained or Improved Outcome: Progressing Goal: Nutritional status is improving Outcome: Progressing Problem: Urinary Incontinence Goal: Perineal skin integrity is maintained or improved Outcome: Progressing [facility] 30 Problem: Knowledge Deficit Goal: Patient/family/caregive r [...] 03/13/20252217 by Ruth Topete RN Outcome: Progressing [facility] [id number] 03-14-2025 [id number] Pt has Hx of seizure disorder. Was a Direct adm for Cont's EEG. Pt is a resident @ [facility]. Called pt's father, Ko, , for Hx, no answer message left. Called the [facility] [phone], spoke w Floridalma. Plan is for DC temitope when EEG completed. WE will need to arrange transport @[place]. to follow. Normal [facility] COMPREHENSIVE METABOLIC PANE Rock 03-14-2025 Albumin [Mass/Vol] 3.2 g/dL Low 3.5-5.0 [facility] Comment on above: Performed By: #### L AB17 ####Coal Trimmer Machine Operator: CORNELIA BARRAGAN ([phone])[facility])[address] [place] [address] ALP [Catalytic activity/Vol] 124 U/L Normal 40-150 [facility] Comment on above: Performed By: #### L AB17 ####Coal Trimmer Machine Operator: CORNELIA BARRAGAN ([phone])[facility])[address] [place] [address] ALT [Catalytic activity/Vol] 24 U/L Normal <30 [facility] Comment on above: Performed By: #### L AB17 ####Coal Trimmer Machine Operator: CORNELIA BARRAGAN ([phone])[facility])[address] [place] [address] Anion gap [Moles/Vol] 12 mmol/L Normal 3-[address] [facility] Comment on above: Performed By: #### L AB17 ####Coal Trimmer Machine Operator: CORNELIA BARRAGAN ([id number])[facility])[address] [place] [address] AST [Catalytic activity/Vol] 31 U/L Normal <34 [facility] Comment on above: Performed By: #### L AB17 ####Coal Trimmer Machine Operator: CORNELIA BARRAGAN ([phone])[facility])[address] [place] [address] [place] Bilirubin [Mass/Vol] 0.2 mg/dL Normal <1.2 [facility] Comment on above: Performed By: #### L AB17 ####Coal Trimmer Machine Operator: CORNELIA BARRAGAN ([phone])[facility] ([facility])[address] [place] [address] Calcium [Mass/Vol] 8.7 mg/dL Normal 8.4-10.2 [facility] Comment on above: Performed By: #### L AB17 ####Coal Trimmer Machine Operator: CORNELIA BARRAGAN ([phone])[facility] ([facility])[address] [place] [address] Chloride [Moles/Vol] 106 mmol/L Normal 98-107 [facility] Comment on above: Performed By: #### L AB17 ####Coal Trimmer Machine Operator: CORNELIA BARRAGAN ([phone])[facility] ([facility])[address] [place] [address] CO2 [Moles/Vol] 20 mmol/L Low 22-29 [facility] Comment on above: Performed By: #### L AB17 ####Coal Trimmer Machine Operator: CORNELIA BARRAGAN ([phone])[facility] ([facility])[address] [place] [address] Creatinine [Mass/Vol] 1.47 mg/dL High 0.57-1.[address] [facility] Comment on above: Performed By: #### L AB17 ####Coal Trimmer Machine Operator: CORNELIA BARRAGAN ([phone])[facility])[address] [place] [address] GLOMERULAR FILTRATION RATE ML/MIN/1.73 SQ M.PREDICTED 43.0 mL/min/1.73m*2 Low >60.0 [facility] Comment on above: Result Comment: Calc ulation based on the Chronic Kidney Disease Epidemiology Collaboration (CKD-EPI) equation refit without adjustment for race Performed By: #### L AB17 ####Coal Trimmer Machine Operator: CORNELIA BARRAGAN ([phone])[facility] ([facility])[address] [place] [address] [place] Glucose [Mass/Vol] 95 mg/dL Normal 74-100 [facility] Comment on above: Performed By: #### L AB17 ####Coal Trimmer Machine Operator: CORNELIA BARRAGAN ([phone])[address] Potassium [Moles/Vol] 4.7 mmol/L Normal 3.5-5.[address] [facility] Comment on above: Result Comment: [facility] potassium values may be up to 0.5 mmol/L lower than serum values. Performed By: #### L AB17 ####Coal Trimmer Machine Operator: CORNELIA BARRAGAN ([phone])[facility])[address] [place] [address] Protein [Mass/Vol] 6.4 g/dL Normal 6.4-8.3 [facility] Comment on above: Performed By: #### L AB17 ####Coal Trimmer Machine Operator: CORNELIA BARRAGAN ([id number])[address] Sodium [Moles/Vol] 138 mmol/L Normal 136-145 [facility] Comment on above: Performed By: #### L AB17 ####Coal Trimmer Machine Operator: CORNELIA BARRAGAN ([phone])[address] Urea nitrogen [Mass/Vol] 33 mg/dL High 9-23 [facility] Comment on above: Performed By: #### L AB17 ####Coal Trimmer Machine Operator: CORNELIA BARRAGAN ([id number])[address] Comprehensive metabolic 1998 panelon 03-14-2025 Albumin [Mass/Vol] 3.2 g/dL Low 3.5 - 5.0 g/dL [facility] ALP [Catalytic activity/Vol] 124 U/L 40 - 150 U/L [facility] ALT [Catalytic activity/Vol] 24 U/L NINF - 30 U/L [facility] Anion gap [Moles/Vol] 12 mmol/L 3 - 13 mmol/L [facility] AST [Catalytic activity/Vol] 31 U/L NINF - 34 U/L [facility] Bilirubin [Mass/Vol] 0.2 mg/dL NINF - 1.2 mg/dL [facility] Calcium [Mass/Vol] 8.7 mg/dL 8.4 - 10. 2 mg/dL [facility] Chloride [Moles/Vol] 106 mmol/L 98 - 10 7 mmol/L [facility] CO2 [Moles/Vol] 20 mmol/L Low 22 - 29 mmol/L [facility] Creatinine [Mass/Vol] 1.47 mg/dL High 0.57 - 1.11 mg/dL [facility] GFR/1.73 sq M.predicted (S/P/Bld) [Vol rate/Area] 43 mL/min Low - PINF [facility] Comment on above: Calculation based on the Chronic Kidney Disease Epidemiology Collaboration (CKD-EPI) equation refit without adjustment for race Glucose [Mass/Vol] 95 mg/dL 74 - 100 mg/dL [facility] Interpretation and review of laboratory results Abnormal [facility] Potassium [Moles/Vol] 4.7 mmol/L 3.5 - 5.1 mmol/L [facility] Comment on above: Plasma potassium haley ues may be up to 0.5 mmol/L lower than serum values. Protein [Mass/Vol] 6.4 g/dL 6.4 - 8.3 g/dL [facility] Sodium [Moles/Vol] 138 mmol/L 136 - 145 mmol/L [facility] Urea nitrogen [Mass/Vol] 33 mg/dL High 9 - 23 mg/dL [facility] Creatinine (U) [Mass/Vol]Ord ered By: Luis Vázquez on 03-14-2025 CREATININE, URINE 51.1 mg/dL 47.0 - 110 .0 mg/dL [facility] Interpretation and review of laboratory results Normal [facility] Concentration is bas ed on a daily urine output of 1.5 L. [facility] LEVETIRACETAM LEVEL (BKR [address] [facility])on 03-14-2025 [facility] LEVETIRACETAM, IMMUNOASSAY 25.3 mcg/mL Normal 6.0-46.0 [facility] Comment on above: Result Comment: Brivaracetam (Briviact(R), Rikelta(R)) exhibits significant cross-reactivity in the Levetiracetam (Keppra(R), Spritam(R)) immunoassay. If Brivaracetam has been prescribed, order test code 40555 Levetiracetam by LCMSMS. Test Performed by Faizan Mathur, [facility], [address] [place] [address] Xuan Samuel M.D., Ph.D., Director of Laboratories , CLIA [id number] Performed By: #### L [id number], [id number] ####[facility] (AMDBEAKER)[address] [place] [facility] Laboratory - Chemistry and C hemistry - challengeon 03-14-2025 Urea nitrogen (U) [Mass/Vol] 471 mg/dL [facility] No Panel Informationon 03-14 CREATININE, URINE 51.1 mg/dL 47.0 - 110 .0 mg/dL [facility] UREA (BUN), URINE, FRACTIONAL EXCRETION 41.1 [facility] Healt h Comment on above: Fractional excretion of urea under 35% is consistent with a prerenal cause. UREA (BUN), URINE, TUBULAR REABSORPTION 0.6 [facility] PRIMIDONE AND METABOLITEon 0 03-14-2025 PHENOBARBITAL-ARUP 19.5 ug/mL Normal 15.0-40.0 [facility] Comment on above: Result Comment: Perf ormed By: [facility] [address] [place] [id number] Fire Extinguisher Repairer Inspector: Ismael Castellon MD, PhD CLIA Number: [id number] Performed By: #### L [id number] ####[facility] (EBTH[facility] (AR)[address] [place] [address] [facility] PRIMIDONE (MYSOLINE) 8.5 ug/mL Normal 5.0-12.0 [facility] Comment on above: Result Comment: INTE RPRETIVE INFORMATION: Primidone and Metabolite Primidone concentrations greater than 15 ug/mL in conjunction with therapeutic levels of phenobarbital may be associated with toxicity. Phenobarbital 0-2 months Toxic: 40.1 or greater 3 months and older Toxic: 50.1 or greater Performed By: #### L [id number] ####[facility] (ARUP)[address] [place] [address] [facility] Progress Noteon 03-14-2025 Progress Note PHYSICAL THERAPY [facility] Name/MRN: Adore Shah ([id number]) Date: 03/14/2025 Pt states she has left foot pain and they are going to do an xray to see if she broke her left foot. She is currently on a continuous EEG. PT held at this time. Fannie Cross, PT Normal [facility] UREA NITROGEN, URINEon 03-14 CREATININE, URINE 51.1 mg/dL Normal 47.0-110.0 [facility] H ealt System [facility] Comment on above: Performed By: #### L AB748, [id number] ####Coal Trimmer Machine Operator: CORNELIA BARRAGAN ([phone])[address] Result Comment: ORDE R COMMENTS: Concentration is based on a daily urine output of 1.5 L. UREA (BUN), URINE, FRACTIONAL EXCRETION 41.1 Normal [facility] Comment on above: Result Comment: Frac tional excretion of urea under 35% is consistent with a prerenal cause. Performed By: #### L AB748, [id number] ####Coal Trimmer Machine Operator: CORNELIA BARRAGAN ([phone])[address] UREA (BUN), URINE, TUBULAR REABSORPTION 0.6 [facility] Comment on above: Performed By: #### L AB748, [id number] ####Coal Trimmer Machine Operator: CORNELIA BARRAGAN ([phone])[address] UREA NITROGEN, URINE 471 mg/dL Normal [facility] Comment on above: Performed By: #### L AB748, [id number] ####Coal Trimmer Machine Operator: CORNELIA BARRAGAN ([phone])[facility])[address] [place] [address] VALPROIC ACID TOTAL AND FREE (BKR [facility])on 03-14-2025 [facility] VALPROIC ACID 42.5 mg/L Low 50.0-100.0 [facility] Comment on above: Result Comment: Test Performed by Faizan Mathur, [facility], [address] [place] [address] Xuan Samuel M.D., Ph.D., Director of Laboratories , CLIA [id number] Performed By: #### L AB477, [id number] ####[facility] (VIPTALONBEAKER)[address] [place], [facility]ST VALPROIC ACID, FREE 4.4 mg/L Low 4.8-17.3 [facility] Comment on above: Result Comment: Note: Non-linear drug binding properties result in the fraction of Free Valproic Acid increasing as total drug increases. The free fraction may range from 5% to 25% for the total drug range of 30-160 mg/L. Performed By: #### L AB477, [id number] ####[facility] (VIPTALONBEAKER)[address] [place] XR FOOT 1-2 VIEWS LEFTon XR FOOT [...] Signed Date/Time: 03/14/2025 3:10 PM EDT Normal [facility] XR Foot - left 2 Viewson No acute osseous abnormality. Report Dictated on Electronically Signed By: Esme Ibanez MD Electronically Signed Date/Time: 03/14/2025 3:10 PM EDT [facility] Patient Name: REEMA SENIOR : [...] SOFT TISSUES: Unremarkable. No radiopaque foreign body. [facility] Esme Ibanez M D - [...] Electronically Signed Date/Time: 03/14/2025 3:10 PM EDT [facility] Radiology Study observation (narrative) [facility] XR Foot - left 2 ViewsOrdere d By: Esme Ibanez on 03-14-2025 [facility] Work Phone: 30on 03-13-2025 30 Problem: Knowledge Deficit Goal: Patient/family/caregive r demonstrates understanding of disease process, treatment plan, medications, and discharge instructions Outcome: Progressing Problem: Potential for Compromised Skin Integrity Goal: Skin Integrity is Maintained or Improved Outcome: Progressing Goal: Nutritional status is improving Outcome: Progressing Problem: Urinary Incontinence Goal: Perineal skin integrity is maintained or improved Outcome: Progressing Normal [facility] COMPREHENSIVE METABOLIC PANE [place] 03-13-2025 Albumin [Mass/Vol] 3.8 g/dL Normal 3.5-5.0 [facility] Comment on above: Performed By: #### L AB129, LAB17 ####Coal Trimmer Machine Operator: CORNELIA BARRAGAN ([phone])[facility])[address] [place] [address] ALP [Catalytic activity/Vol] 143 U/L Normal 40-150 [facility] Comment on above: Performed By: #### L AB129, LAB17 ####Coal Trimmer Machine Operator: CORNELIA BARRAGAN ([phone])[facility] ([facility])[address] [place] [address] ALT [Catalytic activity/Vol] 31 U/L High <30 [facility] Comment on above: Performed By: #### L AB129, LAB17 ####Coal Trimmer Machine Operator: CORNELIA BARRAGAN ([phone])[facility])[address] [place] [address] Anion gap [Moles/Vol] 13 mmol/L Normal 3-[address] [facility] Comment on above: Performed By: #### L AB129, LAB17 ####Coal Trimmer Machine Operator: CORNELIA BARRAGAN ([phone])[facility] ([facility])[address] [place] [address] AST [Catalytic activity/Vol] 37 U/L High <34 [facility] Comment on above: Performed By: #### L AB129, LAB17 ####Coal Trimmer Machine Operator: CORNELIA BARRAGAN ([phone])[facility])[address] [place] [address] Bilirubin [Mass/Vol] 0.3 mg/dL Normal <1.2 [facility] Comment on above: Performed By: #### L AB129, LAB17 ####Coal Trimmer Machine Operator: CORNELIA BARRAGAN ([phone])[facility] [place] [address] Calcium [Mass/Vol] 9.9 mg/dL Normal 8.4-10.2 [facility] Comment on above: Performed By: #### L AB129, LAB17 ####Coal Trimmer Machine Operator: CORNELIA BARRAGAN ([phone])[facility])[address] [place] [address] Chloride [Moles/Vol] 104 mmol/L Normal 98-107 [facility] Comment on above: Performed By: #### L AB129, LAB17 ####Coal Trimmer Machine Operator: CORNELIA BARRAGAN ([phone])[facility])[address] [place] [address] CO2 [Moles/Vol] 24 mmol/L Normal 22-29 [facility] Comment on above: Performed By: #### L AB129, LAB17 ####Coal Trimmer Machine Operator: CORNELIA BARRAGAN ([phone])[facility] ([facility])[address] [place] [address] Creatinine [Mass/Vol] 1.65 mg/dL High 0.57-1.[address] [facility] Comment on above: Performed By: #### L AB129, LAB17 ####Coal Trimmer Machine Operator: CORNELIA BARRAGAN ([phone])[facility])[address] [place] [address] GLOMERULAR FILTRATION RATE ML/MIN/1.73 SQ M.PREDICTED 37.5 mL/min/1.73m*2 Low >60.0 [facility] Comment on above: Result Comment: Calc ulation based on the Chronic Kidney Disease Epidemiology Collaboration (CKD-EPI) equation refit without adjustment for race Performed By: #### L AB129, LAB17 ####Coal Trimmer Machine Operator: CORNELIA BARRAGAN ([id number])[facility] ([facility])[address] [place] [address] Glucose [Mass/Vol] 116 mg/dL High 74-100 [facility] Comment on above: Performed By: #### L AB129, LAB17 ####Coal Trimmer Machine Operator: CORNELIA BARRAGAN ([phone])[facility] ([facility])[address] [place] [address] Potassium [Moles/Vol] 4.1 mmol/L Normal 3.5-5.[address] [facility] Comment on above: Result Comment: [facility] potassium values may be up to 0.5 mmol/L lower than serum values. Performed By: #### L AB129, LAB17 ####Coal Trimmer Machine Operator: CORNELIA BARRAGAN ([id number])[facility] ([facility])[address] [place] [address] Protein [Mass/Vol] 7.6 g/dL Normal 6.4-8.3 [facility] Comment on above: Performed By: #### L AB129, LAB17 ####Coal Trimmer Machine Operator: CORNELIA BARRAGAN ([id number])[facility] ([facility])[address] [place] [address] Sodium [Moles/Vol] 141 mmol/L Normal 136-145 [facility] Comment on above: Performed By: #### L AB129, LAB17 ####Coal Trimmer Machine Operator: CORNELIA BARRAGAN ([id number])[facility] ([facility])[address] [place] [address] Urea nitrogen [Mass/Vol] 38 mg/dL High 9-23 [facility] Comment on above: Performed By: #### L AB129, LAB17 ####Coal Trimmer Machine Operator: CORNELIA BARRAGAN ([id number])[facility] ([facility])[address] [place] [address] Comprehensive metabolic 1998 panelon 03-13-2025 Albumin [Mass/Vol] 3.8 g/dL 3.5 - 5.0 g/dL [facility] ALP [Catalytic activity/Vol] 143 U/L 40 - 150 U/L [facility] ALT [Catalytic activity/Vol] 31 U/L High NINF - 30 U/L [facility] Anion gap [Moles/Vol] 13 mmol/L 3 - 13 mmol/L [facility] AST [Catalytic activity/Vol] 37 U/L High NINF - 34 U/L [facility] Bilirubin [Mass/Vol] 0.3 mg/dL NINF - 1.2 mg/dL [facility] Calcium [Mass/Vol] 9.9 mg/dL 8.4 - 10. 2 mg/dL [facility] Chloride [Moles/Vol] 104 mmol/L 98 - 10 7 mmol/L [facility] CO2 [Moles/Vol] 24 mmol/L 22 - 29 mmol/L [facility] Creatinine [Mass/Vol] 1.65 mg/dL High 0.57 - 1.11 mg/dL [facility] GFR/1.73 sq M.predicted (S/P/Bld) [Vol rate/Area] 37.5 mL/min Low - PINF [facility] Comment on above: Calculation based on the Chronic Kidney Disease Epidemiology Collaboration (CKD-EPI) equation refit without adjustment for race Glucose [Mass/Vol] 116 mg/dL High 74 - 100 mg/dL [facility] Interpretation and review of laboratory results Abnormal [facility] Potassium [Moles/Vol] 4.1 mmol/L 3.5 - 5.1 mmol/L [facility] Comment on above: Plasma potassium haley ues may be up to 0.5 mmol/L lower than serum values. Protein [Mass/Vol] 7.6 g/dL 6.4 - 8.3 g/dL [facility] Sodium [Moles/Vol] 141 mmol/L 136 - 145 mmol/L [facility] Urea nitrogen [Mass/Vol] 38 mg/dL High 9 - 23 mg/dL [facility] Consulton 03-13-2025 Consult Department of Neurological Sciences Section of Epilepsy INITIAL CONSULT NOTE ID: Reema Shah is a 49 y.o. female with history of mood disorder, borderline personality disorder, psoriasis, and epilepsy since Jun 10, 1994 while at the [facility] when she experienced a convulsion. She is [...] Sensory: Bilaterally intact to light touch. Coordination: [id number] dysmetria bilaterally. Reflexes: Deferred. Gait: Unable to [...] Geovanny Haley (more content not included)... Normal [employer] [facility] Laboratory - Chemistry and C hemistry - challengeon 03-13-2025 TSH Qn 2.3 m[IU]/L [employer] [facility] THYROID STIMULATING HORMONEo n 03-13-2025 THYROID STIMULATING HORMONE 2.30 uIU/mL Normal 0.35-4.94 [facility] Comment on above: Performed By: #### L AB129, LAB17 ####Coal Trimmer Machine Operator: CORNELIA BARRAGAN ([id number])[facility] ([facility] TSH Qnon 03-13-2025 Interpretation and review of laboratory results Normal [facility] 36on 03-05-[address] Hernandez made aware of patient rescheduling need. Normal [facility] 36 Name of caller: Rosa Elena Contact phone number: [phone] Relationship to Patient: Maddie at [facility] Provider: Dr Hernandez Practice: Neurology Chief Complaint/Reason for Call: Rosa Elena legal assistant called to advise there is no transportation available for the pt to be admitted for testing on 03/06/25. Rosa Elena was transferred to central scheduling to reschedule. Best time of day caller can be reached: Any Patient advised that office/PCP has 24-48 business hours to return their call: Yes Normal [facility] Office Visiton 02-19-2025 Follow-up visit [id number] Reema Shah 1975 F Date Provider Department Center 02/19/2025 [id number] PEREZ [facility] None Family History Problem Relation Age [...] Grandmother Paternal Grandfather Daughter Alive Level of Service:34182 SC OFFICE/OUTPATIENT ESTABLISHED HIGH MDM 40 MIN Reason for Visit and Comments: Follow-up [056333] Seizures [97] - No new seizures to report Normal [facility] Progress Noteon 02-19-2025 Progress Note Department of Neurological Sciences Section of Epilepsy [facility] [address] [facility] [address] Dept: [phone] Dept Loc: [phone] . Visit type: follow-up Reason for Visit: Follow-up and Seizures (No new seizures to report) Objective HPI The patient is a 49 y.o. who lives at [facility] with a PMH significant for mood disorder, borderline personality disorder, psoriasis, and epilepsy since Jun 10, 1994 while at the [facility] when she experienced a convulsion. Previous provider ([facility]) followed her for kidney problems since age [...] alleviate these symptoms. She currently resides at [facility]. Prior History: Her fall frequency has worsened [...] needed for constipation. (more content not included)... [facility] 36on 01-26-2025 36 Spoke with Tanesha and let her know providers message. [facility] 36 Tell them ok, but I am not a fan of her getting that first dose before she is up for the day. Normal [facility] 36 Name of caller: Mckenzie alcala Contact phone number: [phone] Relationship to Patient: Maddie at [facility] Provider: Dr. Chopra Practice: [facility] Neurology [place] Chief Complaint/Reason for Call: Tanesha states that [...] business hours to return their call: Yes [facility] Office Visiton 01-25-2025 Follow-up visit [id number] Reema Shah 1975 F Date Provider Department Center 01/25/2025 [id number] None Family History Problem Relation Age [...] Grandmother Paternal Grandfather Daughter Alive Level of Service:30415 SC OFFICE/OUTPATIENT ESTABLISHED LOW MDM 20 MIN Reason for Visit and Comments: Follow-up [495066] Seizures [97] [facility] Progress Noteon 01-25-2025 Progress Note [facility] [address] [facility] [address] Dept: [phone] Dept Loc: [phone] Valentina Chopra MD CHIEF COMPLAINT: Chief Complaint [...] Psoriasis, Repeated falls, and Thrombocytopenia ([facility]). Past Surgical History: has a past surgical [...] Rfl: potassium (more content not included)... Normal [facility] Absolute lymphocyte countOrd ered By: Sree Jamison on 12-31-2024 Lymphocytes Auto (Unsp spec) [#/Vol] 1.62 10*3/uL 0.83-4.51 [facility] Absolute neutrophil countOrd ered By: Sree Jamison on 12-31-2024 Neutrophils (Bld) [#/Vol] 3.0 10*3/uL 2.0-7.7 [facility] Anion gap in Serum or Plasma Ordered By: Sree Jamison on 12-31-2024 Anion gap [Moles/Vol] 12 mmol/L 5-15 [facility] Automated lymphocyte count a s percentage of total leukocytesOrdered By: Sree Jaimson on 12-31-2024 Lymphocytes/100 WBC Auto (Unsp spec) 30.1 % 19-41 [facility] BUN/creatinine ratioOrdered By: Sree Jamison on 12-31-2024 Urea nitrogen/Creatinine [Mass ratio] 22.4 mg/mg High 10-20 [facility] Basophil percentageOrdered B y: Sree Jamison on 12-31-2024 Basophils/100 WBC (Bld) 0.4 % 0-1 [facility] Bilirubin, totalOrdered By: Sree Jamison on 12-31-2024 Bilirubin [Mass/Vol] 0.20 mg/dL 0.00-1.30 [facility] CBC W/Diff, Automatedon 12-16 Absolute Lymph 1.62 X10 3/uL Normal 0.83-4.51 [facility] Comment on above: Performed By: #### L 500.2500, L100.0100 #### [facility] [address] [place], [address] Absolute Neut 3.0 X10 3/uL Normal 2.0-7.7 [facility] Comment on above: Performed By: #### L 500.2500, L100.0100 #### [facility] [address] [place], [address] Basophils/100 WBC (Bld) 0.4 % Normal 0-1 [facility] Comment on above: Performed By: #### L 500.2500, L100.0100 #### [facility] [address] [place], [address] Eosinophils/100 WBC (Bld) 2.2 % Normal 0-5 [facility] Comment on above: Performed By: #### L 500.2500, L100.0100 #### [facility] [address] [place], [address] Erythrocyte distribution width (RBC) [Ratio] 12.4 % Normal 11.6-14.6 [facility] Comment on above: Performed By: #### L 500.2500, L100.0100 #### [facility] [address] [place], [address] Hematocrit (Bld) [Volume fraction] 44.3 % Normal 37-47 [facility] Comment on above: Performed By: #### L 500.2500, L100.0100 #### [facility] [address] [place], [address] Hemoglobin (Bld) [Mass/Vol] 15.1 g/dL High 12.0-15.0 [facility] Comment on above: Performed By: #### L 500.2500, L100.0100 #### [facility] [address] [place], [address] IG% 1.100 High 0.0-0.9 [facility] Comment on above: Result Comment: IG% - Immature Granulocytes (promyelocytes, myelocytes and metamyelocytes) > 1% indicates that a LEFT SHIFT is Present. Performed By: #### L 500.2500, L100.0100 #### [facility] [address] [place], [address] Lymphocytes/100 WBC (Bld) 30.1 % Normal 19-41 [facility] Comment on above: Performed By: #### L 500.2500, L100.0100 #### [facility] [address] [place], [address] MCH (RBC) [Entitic mass] 30.6 pg Normal 27.0-32.0 [facility] Comment on above: Performed By: #### L 500.2500, L100.0100 #### [facility] [address] [place], [address] MCHC (RBC) [Mass/Vol] 34.1 g/dL Normal 32-36 [facility] Comment on above: Performed By: #### L 500.2500, L100.0100 #### [facility] [address] [place], [address] MCV (RBC) [Entitic vol] 89.7 fL Normal 81-99 [facility] Comment on above: Performed By: #### L 500.2500, L100.0100 #### [facility] [address] [place], [address] Monocytes/100 WBC (Bld) 10.4 % High 0-10 [facility] Comment on above: Performed By: #### L 500.2500, L100.0100 #### [facility] [address] [place], [address] Neutrophils/100 WBC (Bld) 55.8 % Normal 47-70 [facility] Comment on above: Performed By: #### L 500.2500, L100.0100 #### [facility] [address] [place], [address] Nucleated RBC (Bld) [#/Vol] 0 10*3/uL Normal 0-5 [facility] Comment on above: Performed By: #### L 500.2500, L100.0100 #### [facility] [address] [place], [address] Platelet mean volume (Bld) [Entitic vol] 10.3 fL Normal 6.2-12.0 [facility] Comment on above: Performed By: #### L 500.2500, L100.0100 #### [facility] [address] [place], [address] Platelets (Bld) [#/Vol] 121 10*3/uL Low 150-450 [facility] Comment on above: Performed By: #### L 500.2500, L100.0100 #### [facility] [address] [place], [address] RBC (Bld) [#/Vol] 4.94 10*6/uL Normal 4.2-5.4 [facility] Comment on above: Performed By: #### L 500.2500, L100.0100 #### [facility] [address] [place], [address] RDW SD 40.7 fl Normal 35.1-43.9 [facility] Comment on above: Performed By: #### L 500.2500, L100.0100 #### [facility] [address] [place], [address] WBC (Bld) [#/Vol] 5.4 10*3/uL Normal 4.4-11.0 [facility] Comment on above: Performed By: #### L 500.2500, L100.0100 #### [facility] [address] [place], [address] Carbon dioxide, total [Moles /volume] in Central venous bloodOrdered By: Sree Jamison on 12-31-2024 CO2 [Moles/Vol] 23.9 mmol/L 21.0-32.0 [facility] Chloride assayOrdered By: Frankiln Jamison on 12-31-2024 Chloride [Moles/Vol] 103 mmol/L 98-108 [facility] Comprehensive Metabolic Prof ilon 12-31-2024 Albumin [Mass/Vol] 4.0 g/dL Normal 3.5-5.0 [facility] Comment on above: Performed By: #### L 500.2500, L100.0100 #### [facility] [address] [place], [address] Albumin/Globulin [Mass ratio] 1.7 {ratio} Normal 0.9-2.4 [facility] Comment on above: Performed By: #### L 500.2500, L100.0100 #### [facility] [address] [place], [address] ALK PHOS 142 U/L High 35-104 [facility] Comment on above: Performed By: #### L 500.2500, L100.0100 #### [facility] [address] [place], [address] ALT [Catalytic activity/Vol] 23 U/L Normal <=34 [facility] Comment on above: Performed By: #### L 500.2500, L100.0100 #### [facility] [address] [place], [address] AST [Catalytic activity/Vol] 27 U/L Normal <=31 [facility] Comment on above: Performed By: #### L 500.2500, L100.0100 #### [facility] [address] [place], [address] Bilirubin [Mass/Vol] 0.20 mg/dL Normal 0.00-1.30 [facility] Comment on above: Performed By: #### L 500.2500, L100.0100 #### [facility] [address] [place], [address] BUN/CRE 22.4 RATIO High 10-20 [facility] Comment on above: Performed By: #### L 500.2500, L100.0100 #### [facility] [address] [place], [address] Calcium [Mass/Vol] 9.3 mg/dL Normal 7.6-11.0 [facility] Comment on above: Performed By: #### L 500.2500, L100.0100 #### [facility] [address] [place], [address] Chloride [Moles/Vol] 103 mmol/L Normal 98-108 [facility] Comment on above: Performed By: #### L 500.2500, L100.0100 #### [facility] [address] [place], [address] CO2 [Moles/Vol] 23.9 mmol/L Normal 21.0-32.0 [facility] Comment on above: Performed By: #### L 500.2500, L100.0100 #### [facility] [address] [place], [address] Creatinine [Mass/Vol] 1.43 mg/dL High 0.70-1.20 [facility] Comment on above: Performed By: #### L 500.2500, L100.0100 #### [facility] [address] [place], [address] GAP 12 Normal 5-15 [facility] Comment on above: Performed By: #### L 500.2500, L100.0100 #### [facility] [address] [place], [address] GFR/1.73 sq M.predicted among non-blacks MDRD (S/P/Bld) [Vol rate/Area] 44 mL/min/{1.73_m2} Low >60 [facility] Comment on above: Result Comment: mL/m in/1.73m2 CKD-EPI Creatinine Equation (2020) Performed By: #### L 500.2500, L100.0100 #### [facility] [address] [place], [address] Globulin (S) [Mass/Vol] 2.3 g/dL Normal 2.2-4.2 [facility] Comment on above: Performed By: #### L 500.2500, L100.0100 #### [facility] [address] [place], [address] Glucose [Mass/Vol] 95 mg/dL Normal 70-99 [facility] Comment on above: Performed By: #### L 500.2500, L100.0100 #### [facility] [address] [place], [address] Potassium [Moles/Vol] 4.9 mmol/L Normal 3.3-5.1 [facility] Comment on above: Performed By: #### L 500.2500, L100.0100 #### [facility] [address] [place], [address] Sodium [Moles/Vol] 139 mmol/L Normal 133-145 [facility] Comment on above: Performed By: #### L 500.2500, L100.0100 #### [facility] [address] [place], [address] T PROT 6.3 g/dL Normal 5.9-8.4 [facility] Comment on above: Performed By: #### L 500.2500, L100.0100 #### [facility] [address] [place], [place], [address] Urea nitrogen [Mass/Vol] 32 mg/dL High 4-19 [facility] Comment on above: Performed By: #### L 500.2500, L100.0100 #### [facility] [address] [place], [address] Eosinophil percentageOrdered By: Sree Jamison on 12-31-2024 Eosinophils/100 WBC (Bld) 2.2 % 0-5 [facility] Erythrocyte distribution wid th ratioOrdered By: Sree Jamison on 12-31-2024 Erythrocyte distribution width (RBC) [Ratio] 12.4 % 11.6-14.6 [facility] Erythrocyte distribution wid th standard deviationOrdered By: Sree Jamison on 12-31-2024 Erythrocyte distribution width (RBC) [Ratio] 40.7 fl 35.1-43.9 [facility] Glomerular filtration rate ( GFR) estimation/1.73 sq m using serum, plasma, or whole bOrdered By: Sree Jamison on 12-31-2024 GFR/1.73 sq M.predicted among non-blacks MDRD (S/P/Bld) [Vol rate/Area] 44 mL/min/{1.73_m2} Low >60 [facility] Comment on above: mL/min/1.73m2 CKD-EP I Creatinine Equation (2020) Hematocrit Auto (Bld) [Volum e fraction]Ordered By: Sree Jamison on 12-31-2024 Hematocrit (Bld) [Volume fraction] 44.3 % 37-47 [facility] Hemoglobin measurementOrdere d By: Sree Jamison on 12-31-2024 Hemoglobin (Bld) [Mass/Vol] 15.1 g/dL High 12.0-15.0 [facility] Immature granulocytes/100 WB C Auto (Bld)Ordered By: Sree Jamison on 12-31-2024 Immature granulocytes/100 WBC (Bld) 1.100 % High 0.0-0.9 [facility] Comment on above: IG% - Immature Granu locytes (promyelocytes, myelocytes and metamyelocytes) > 1% indicates that a LEFT SHIFT is Present. Laboratory - Chemistry and C hemistry - challengeOrdered By: Sree Jamison on 12-31-2024 AST [Catalytic activity/Vol] 27 U/L <32 [facility] MCV (mean corpuscular volume ) determinationOrdered By: Sree Jamison on 12-31-2024 MCV (RBC) [Entitic vol] 89.7 fL 81-99 [facility] Mean corpuscular hemoglobin (MCH) determinationOrdered By: Sree Jamison on 12-31-2024 MCH (RBC) [Entitic mass] 30.6 pg 27.0-32.0 [facility] Mean corpuscular hemoglobin concentration (MCHC) determinationOrdered By: Sree Jamison on 12-31-2024 MCHC (RBC) [Mass/Vol] 34.1 g/dL 32-36 [facility] Mean platelet volume determi nationOrdered By: Sree Jamison on 12-31-2024 Platelet mean volume (Bld) [Entitic vol] 10.3 fL 6.2-12.0 [facility] Monocyte percentageOrdered B y: Sree Jamison on 12-31-2024 Monocytes/100 WBC (Bld) 10.4 % High 0-10 [facility] Neutrophil percentageOrdered By: Sree Jamison on 12-31-2024 Neutrophils/100 WBC (Bld) 55.8 % 47-70 [facility] Nucleated red blood cell per centageOrdered By: Sree Jamison on 12-31-2024 Nucleated RBC/100 WBC (Bld) [Ratio] 0 % 0-5 [facility] Platelet countOrdered By: Franklin Jamison on 12-31-2024 Platelets (Bld) [#/Vol] 121 10*3/uL Low 150-450 [facility] Potassium measurement (mass/ volume)Ordered By: Sree Jamison on 12-31-2024 Potassium (Unsp spec) [Mass/Vol] 4.9 mmol/L 3.3-5.1 [facility] RBC Auto (Bld) [#/Vol]Ordere d By: Sree Jamison on 12-31-2024 RBC (Bld) [#/Vol] 4.94 10*6/uL 4.2-5.4 [facility] Serum creatinine measurement (mass/volume)Ordered By: Sree Jamison on 12-31-2024 Creatinine [Mass/Vol] 1.43 mg/dL High 0.70-1.20 [facility] Serum globulin measurementOr dered By: Sree Jamison on 12-31-2024 Globulin (S) [Mass/Vol] 2.3 g/dL 2.2-4.2 [facility] Serum glucose measurement (m ass/volume)Ordered By: Sree Jamison on 12-31-2024 Glucose [Mass/Vol] 95 mg/dL 70-99 [facility] Serum or plasma alanine stephens otransferase (ALT) measurementOrdered By: Sree Jamison on 12-31-2024 ALT [Catalytic activity/Vol] 23 U/L <35 [facility] Serum or plasma albumin flores urement (mass/volume)Ordered By: Sree Jamison on 12-31-2024 Albumin [Mass/Vol] 4.0 g/dL 3.5-5.0 [facility] Serum or plasma albumin/glob ulin mass ratioOrdered By: Sree Jamison on 12-31-2024 Albumin/Globulin [Mass ratio] 1.7 {ratio} 0.9-2.4 [facility] Serum or plasma alkaline ary sphatase measurementOrdered By: Sree Jamison on 12-31-2024 ALP [Catalytic activity/Vol] 142 U/L High 35-104 [facility] Serum or plasma calcium flores urement (mass/volume)Ordered By: Sree Jamison on 12-31-2024 Calcium [Mass/Vol] 9.3 mg/dL 7.6-11.0 [facility] Serum or plasma urea nitroge n measurement (mass/volume)Ordered By: Sree Jamison on 12-31-2024 Urea nitrogen [Mass/Vol] 32 mg/dL High 4-19 [facility] Sodium levelOrdered By: Sree Jamison on 12-31-2024 Sodium [Moles/Vol] 139 mmol/L 133-145 [facility] Total proteinOrdered By: Cammie Jamison on 12-31-2024 Protein [Mass/Vol] 6.3 g/dL 5.9-8.4 [facility] White blood cell (WBC) count Ordered By: Sree Jamison on 12-31-2024 WBC (Bld) [#/Vol] 5.4 10*3/uL 4.4-11.0 [facility] Office Visiton 12-08-2024 Follow-up visit [id number] Reema Shah Chikis 1975 F Date Provider Department Center 12/08/2024 [id number] SORTO [facility] None Family History Problem Relation Age [...] Grandmother Paternal Grandfather Daughter Alive Level of Service:98354 SC OFFICE/OUTPATIENT ESTABLISHED MOD [facility] 30 MIN Reason for Visit and Comments: Follow-up [882577] Seizures [97] - Had a seizures last night lasted 10 minutes Normal [facility] Progress Noteon 12-08-2024 Progress Note Department of Neurological Sciences Section of Epilepsy [facility] [address] [facility] [address] Dept: [phone] Dept Loc: [phone] . Visit type: follow-up Reason for Visit: Follow-up and Seizures (Had a seizures last night lasted 10 minutes ) Objective HPI The patient is a 49 y.o. who lives at [facility] with a PMH significant for mood disorder, borderline personality disorder, psoriasis, and epilepsy since Jun 10, 1994 while at the [facility] when she experienced a convulsion. Previous provider ([facility]) followed her for kidney problems since age [...] (Mysoline) 50 MG (more content not included)... [facility] 36on 12-07-2024 36 Attempted to call patient about confirming appointment on 12/08/24 no answer left message advised patient to call me back at [phone]. [facility] Emergency Department Summary on 11-07-2024 Emergency Department Summary [facility] Medical Records Department [address] [place] [address] Emergency Department Summary 11/07/24 MR#: [id number] Acct: [id number] Name: REEMA SHAH Rep #: [id number] : 1975 49 From: Ian Starr MD PCP: Dr. Sree Jamison MD Status:REG ER Location: ED HPI History of Present Illness Chief Complaint: Abd Pain Informant: patient and EMS Narrative Narrative: 49-year-old female residing at [facility] states she has been having diffuse periumbilical abdominal pain and constipation since yesterday. She was seen here for it. She was prescribed GoLytely but although she states she drank it, skilled nursing states that she refused to drink it. She apparently was calling 911 repeatedly from the skilled nursing, nursing there reports that they were trying to keep her from doing this but she continued to do it anyway, they told her she did not need to go back to the ER since she was just here, but she was adamant so EMS is transported her back. Nursing from the skilled nursing stated that they called the physician Dr. Jamison who also stated that she did not need to go she just needed to drink the GoLytely that she was refusing to drink. She denies any nausea or vomiting. She denies any problems urinating. She denies any chest pain or shortness of breath. [facility] Medical History (Updated 11/07/24 @ 06:[address] Ian Starr MD) Borderline personality disorder Long-term use of high-risk medication Systolic heart failure Major depressive disorder Tremor History of DE (myocardial infarction) History of TIA (transient ischemic [...] Allergy Unknow (more content not included)... Normal [facility] Abdomen/Pelvis W IV Cont ONL Yon 11-06-2024 Abdomen/Pelvis W IV Cont ONLY [facility] Imaging Services [address], [place] [id number] Abdomen/Pelvis W IV Cont ONLY MR#: [id number] Acct: [id number] Name: REEMA SHAH Rep #: [id number] : 1975 F 49 From: Son owusu MD PCP: Dr. Sree Jamison MD Status: REG ER Study: Abdomen/Pelvis W IV Cont ONLY Date of Exam: Exam# [id number] Ordering Dr: [place] [id number] STUDY: CT ABDOMEN AND PELVIS WITH CONTRAST [...] 13:36 EST Reading Location ID and State: [address] [place] [address] , Service support , CC: Dr. Tim Newby MD; Dr. Sree Jamison MD Bulker: Signed Normal [facility] CBC W/Diff, Automatedon 10-19 Absolute Lymph 1.21 X10 3/uL Normal 0.83-4.51 [facility] Comment on above: Performed By: #### L 500.2500, L100.0100 #### [facility] [address] [place], [address] Absolute Neut 7.3 X10 3/uL Normal 2.0-7.7 [facility] Comment on above: Performed By: #### L 500.2500, L100.0100 #### [facility] [address] [place], [address] Basophils/100 WBC (Bld) 0.3 % Normal 0-1 [facility] Comment on above: Performed By: #### L 500.2500, L100.0100 #### [facility] [address] [place], [address] Eosinophils/100 WBC (Bld) 0.5 % Normal 0-5 [facility] Comment on above: Performed By: #### L 500.2500, L100.0100 #### [facility] [address] [place], [address] Erythrocyte distribution width (RBC) [Ratio] 12.1 % Normal 11.6-14.6 [facility] Comment on above: Performed By: #### L 500.2500, L100.0100 #### [facility] [address] [place], [address] Hematocrit (Bld) [Volume fraction] 37.5 % Normal 37-47 [facility] Comment on above: Performed By: #### L 500.2500, L100.0100 #### [facility] [address] [place], [address] Hemoglobin (Bld) [Mass/Vol] 12.8 g/dL Normal 12.0-15.0 [facility] Comment on above: Performed By: #### L 500.2500, L100.0100 #### [facility] [address] [place], [address] IG% 0.600 Normal 0.0-0.9 [facility] Comment on above: Result Comment: IG% - Immature Granulocytes (promyelocytes, myelocytes and metamyelocytes) > 1% indicates that a LEFT SHIFT is Present. Performed By: #### L 500.2500, L100.0100 #### [facility] [address] [place], [address] Lymphocytes/100 WBC (Bld) 13.0 % Low 19-41 [facility] Comment on above: Performed By: #### L 500.2500, L100.0100 #### [facility] [address] [place], [address] MCH (RBC) [Entitic mass] 30.3 pg Normal 27.0-32.0 [facility] Comment on above: Performed By: #### L 500.2500, L100.0100 #### [facility] [address] [place], [address] MCHC (RBC) [Mass/Vol] 34.1 g/dL Normal 32-36 [facility] Comment on above: Performed By: #### L 500.2500, L100.0100 #### [facility] [address] [place], [address] MCV (RBC) [Entitic vol] 88.9 fL Normal 81-99 [facility] Comment on above: Performed By: #### L 500.2500, L100.0100 #### [facility] [address] [place], [address] Monocytes/100 WBC (Bld) 7.3 % Normal 0-10 [facility] Comment on above: Performed By: #### L 500.2500, L100.0100 #### [facility] [address] [place], [address] Neutrophils/100 WBC (Bld) 78.3 % High 47-70 [facility] Comment on above: Performed By: #### L 500.2500, L100.0100 #### [facility] [address] [place], [address] Nucleated RBC (Bld) [#/Vol] 0 10*3/uL Normal 0-5 [facility] Comment on above: Performed By: #### L 500.2500, L100.0100 #### [facility] [address] [place], [address] Platelet mean volume (Bld) [Entitic vol] 10.7 fL Normal 6.2-12.0 [facility] Comment on above: Performed By: #### L 500.2500, L100.0100 #### [facility] [address] [place], [address] Platelets (Bld) [#/Vol] 111 10*3/uL Low 150-450 [facility] Comment on above: Performed By: #### L 500.2500, L100.0100 #### [facility] [address] [place], [address] RBC (Bld) [#/Vol] 4.22 10*6/uL Normal 4.2-5.4 [facility] Comment on above: Performed By: #### L 500.2500, L100.0100 #### [facility] [address] [place], [address] RDW SD 38.5 fl Normal 35.1-43.9 [facility] Comment on above: Performed By: #### L 500.2500, L100.0100 #### [facility] [address] [place], [address] WBC (Bld) [#/Vol] 9.3 10*3/uL Normal 4.4-11.0 [facility] Comment on above: Performed By: #### L 500.2500, L100.0100 #### [facility] [address] [place], [address] Comprehensive Metabolic Prof ilon 11-06-2024 Albumin [Mass/Vol] 3.1 g/dL Low 3.2-5.0 [facility] Comment on above: Performed By: #### L 500.2500, L100.0100 #### [facility] [address] [place], [address] Albumin/Globulin [Mass ratio] 0.9 {ratio} Normal 0.9-2.4 [facility] Comment on above: Performed By: #### L 500.2500, L100.0100 #### [facility] [address] [place], [address] ALK P 128 U/L High 45-117 [facility] Comment on above: Performed By: #### L 500.2500, L100.0100 #### [facility] [address] [place], [address] ALT [Catalytic activity/Vol] 28 U/L Normal 13-56 [facility] Comment on above: Performed By: #### L 500.2500, L100.0100 #### [facility] [address] [place], [address] AST [Catalytic activity/Vol] 27 U/L Normal 15-37 [facility] Comment on above: Performed By: #### L 500.2500, L100.0100 #### [facility] [address] [place], [address] Bilirubin [Mass/Vol] 0.30 mg/dL Normal 0.20-1.00 [facility] Comment on above: Result Comment: For patients on eltrombopag therapy, use of Dimension [place] TBIL is not recommended. Performed By: #### L 500.2500, L100.0100 #### [facility] [address] [place], [address] BUN/CRE 21.1 RATIO High 10-20 [facility] Comment on above: Performed By: #### L 500.2500, L100.0100 #### [facility] [address] [place], [address] CA,Total 8.7 mg/dL Normal 8.5-10.1 [facility] Comment on above: Performed By: #### L 500.2500, L100.0100 #### [facility] [address] [place], [address] Chloride [Moles/Vol] 102 mmol/L Normal 98-107 [facility] Comment on above: Performed By: #### L 500.2500, L100.0100 #### [facility] [address] [place], [address] CO2 [Moles/Vol] 22.0 mmol/L Normal 21.0-32.0 [facility] Comment on above: Performed By: #### L 500.2500, L100.0100 #### [facility] [address] [place], [address] Creatinine [Mass/Vol] 1.23 mg/dL High 0.55-1.02 [facility] Comment on above: Result Comment: The validity of the calculated GFR GFRAA in patients over 70 years has not been determined. Clinical correlation is essential. Performed By: #### L 500.2500, L100.0100 #### [facility] [address] [place], [address] ECRCL 51.06 ml/min Normal [facility] Comment on above: Performed By: #### L 500.2500, L100.0100 #### [facility] [address] [place], [address] EST GFR - AA 59 mL/min Low >60 [facility] Comment on above: Result Comment: Afri can Indian GFR Calc Performed By: #### L 500.2500, L100.0100 #### [facility] [address] [place], [address] GAP 6 Normal 5-15 [facility] Comment on above: Performed By: #### L 500.2500, L100.0100 #### [facility] [address] [place], [address] GFR/1.73 sq M.predicted among non-blacks MDRD (S/P/Bld) [Vol rate/Area] 49 mL/min/{1.73_m2} Low >60 [facility] Comment on above: Result Comment: Non- GFR Calc Performed By: #### L 500.2500, L100.0100 #### [facility] [address] [place], [address] Globulin (S) [Mass/Vol] 3.6 g/dL Normal 2.2-4.2 [facility] Comment on above: Performed By: #### L 500.2500, L100.0100 #### [facility] [address] [place], [address] Glucose [Mass/Vol] 100 mg/dL Normal 74-106 [facility] Comment on above: Result Comment: Fast ing Glucose result from 100 to 125 mg/dL suggests IMPAIRED HOMEOSTASIS per A.D.A. criteria. Performed By: #### L 500.2500, L100.0100 #### [facility] [address] [place], [address] Potassium [Moles/Vol] 4.6 mmol/L Normal 3.5-5.1 [facility] Comment on above: Performed By: #### L 500.2500, L100.0100 #### [facility] [address] [place], [address] Sodium [Moles/Vol] 130 mmol/L Low 136-145 [facility] Comment on above: Performed By: #### L 500.2500, L100.0100 #### [facility] [address] [place], [address] T PROT 6.7 g/dL Normal 6.4-8.2 [facility] Comment on above: Performed By: #### L 500.2500, L100.0100 #### [facility] [address] [place], [address] Urea nitrogen [Mass/Vol] 26 mg/dL High 7-18 [facility] Comment on above: Performed By: #### L 500.2500, L100.0100 #### [facility] [address] [place], [address] Emergency Department Summary on 11-06-2024 Emergency Department Summary [facility] Medical Records Department [address] [place] [address] Emergency Department Summary 11/06/24 MR#: [id number] Acct: [id number] Name: REEMA SHAH Rep #: [id number] : 1975 49 From: Tim Newby MD [...] similar symptoms: Yes Recent Illness/Hospitalization : [facility] Medical History Long-term use of high-risk medication Systolic heart failure Major depressive disorder Tremor History of DE (myocardial infarction) History of TIA (transient ischemic [...] 11/06/24 11:14 (more content not included)... Normal [facility] Lipaseon 11-06-2024 Lipase [Catalytic activity/Vol] 85 U/L High 13-75 [facility] Comment on above: Result Comment: Redd stovall note: LIPASE revised reference range effective 23. New Lipase methodology. Expected to produce lower values than the previous assay method. NEW Reference Range: 13 - 75 U/L Performed By: #### L 500.2500, L100.0100 #### [facility] [address] [place], [place], [address] ,Serum,hCG Quali.on 11-06-2024 HCG, SERUM QUAL Negative Normal [facility] Comment on above: Performed By: #### L 500.2500, L100.0100 #### [facility] [address] [place], [place], [address] Urinalysis, Completeon 11-06 BACTERIA 1+ /hpf Normal None Seen [facility] Comment on above: Order Comment: COLLE CTOR TO SPECIFY Performed By: #### L 500.2500, L100.0100 #### [facility] [address] [place], [address] EPI,SQUAMOUS 5-10 SEEN Normal 5-10 [facility] Comment on above: Order Comment: COLLE CTOR TO SPECIFY Performed By: #### L 500.2500, L100.0100 #### [facility] [address] [place], [address] WBC 5-10 SEEN Normal 0-5 [facility] Comment on above: Order Comment: COLLE CTOR TO SPECIFY Performed By: #### L 500.2500, L100.0100 #### [facility] [address] [place], [address] Mucus Ql (Urine sed) 0 SEEN Normal [facility] Comment on above: Order Comment: COLLE CTOR TO SPECIFY Performed By: #### L 500.2500, L100.0100 #### [facility] [address] [place], [address] RBC 0 SEEN Normal 0-5 [facility] Comment on above: Order Comment: COLLE CTOR TO SPECIFY Performed By: #### L 500.2500, L100.0100 #### [facility] [address] [place], [address] Ankle min 3 Viewson 11-04-19 25 Ankle min 3 Views [facility] Services [address] [place] [address] Ankle min 3 Views MR#: [id number] Acct: [id number] Name: REEMA SHAH Rep #: [id number] : 1975 F 49 From: Fran Valencia MD PCP: Dr. Sree Jamison MD Status: REG ER Study: Ankle min 3 Views Date of Exam: 11/04/24 Exam# [id number] Ordering Dr: Sree Felix [employer] [id number] EXAM: XR LEFT ANKLE COMPLETE, 3 OR [...] CC: GAYLE Felix; Dr. Sree Jamison MD Bulker: Signed Normal [facility] Emergency Department Summary on 11-04-2024 Emergency Department Summary [facility] Medical Records Department [address] [place] [address] Emergency Department Summary 11/04/24 MR#: [id number] Acct: [id number] Name: REEMA SHAH Rep #: [id number] : 1975 49 From: Sree ARAUJO PCP: Dr. Sree Jamison MD Status:DEP ER Location: ED HPI History of Present Illness Chief Complaint: Lower Extremity Injury Narrative Narrative: Patient is a 49-year-old female who is in assisted living so history hypertension lipidemia epilepsy, myoclonus who presents to the [facility] for a left lower leg injury. She was up in her wheelchair that is motorized, she struck a wall and felt a pop. Patient says she has pain from the knee all the way down to the toes. She denies any other injury. History of Present Illness Informant: patient [facility] Medical History Long-term use of high-risk medication Systolic heart failure Major depressive disorder Tremor History of DE (myocardial infarction) History of TIA (transient ischemic [...] AdvReac Vo (more content not included)... Normal [facility] Foot min 3 Viewson 5 Foot min 3 Views [facility] [address] [place] [address] (601) Foot min 3 Views MR#: [id number] Acct: [id number] Name: REEMA SHAH Rep #: [id number] : 1975 F 49 From: Fran Valencia MD PCP: Dr. Sree Jamison MD Status: REG ER Study: Foot min 3 Views Date of Exam: 11/04/24 Exam# [id number] Ordering Dr: Sree Felix [id number] EXAM: XR LEFT FOOT COMPLETE, 3 OR [...] 15:45 EST Reading Location ID and State: [facility] / [place] Tel , Service support , CC: GAYLE Felix; Dr. Sree Jamison MD Bulker: Signed Normal [facility] Tibia Fibula 2 Viewson 11-04 Tibia Fibula 2 Views [facility] Services [address] [place] [address] Tibia Fibula 2 Views MR#: [id number] Acct: [id number] Name: REEMA SHAH Rep #: [id number] : 1975 F 49 From: Fran Valencia MD PCP: Dr. Sree Jamison MD Status: REG ER Study: Tibia Fibula 2 Views Date of Exam: 11/04/24 Exam# [id number] Ordering Dr: Sree Felix [id number] EXAM: XR LEFT TIBIA AND FIBULA, 2 [...] CC: GAYLE Felix; Dr. Sree Jamison MD Bulker: Signed Normal [facility] 36on 10-30-2024 36 We have been unable to reach your patient to schedule their testing. Test Name: [employer] Monitoring 2-3 Day Eval 1st Attempt: 10/26 Called patient, no answer, mailbox full unable to leave message. 2nd Attempt: 10/27 Called patient, no answer, mailbox full, unable to leave message 3rd Attempt: 10/30 Called patient, no answer, left voicemail Normal [facility] Office Visiton 10-26-2024 Follow-up visit [id number] Reema Shah 1975 F Date Provider Department Center 10/26/2024 [id number] HERNANDEZ [facility] None Family History Problem Relation Age [...] Grandmother Paternal Grandfather Daughter Alive Level of Service:67997 SC OFFICE/OUTPATIENT ESTABLISHED HIGH MDM 40 MIN Reason for Visit and Comments: Follow-up [127153] Seizures [97] - No new seizures to report Normal [facility] Progress Noteon 10-26-2024 Progress Note Department of Neurological Sciences Section of Epilepsy [facility] [place] [id number] [facility] [address] Dept: [phone] Dept Loc: [phone] . Visit type: follow-up Reason for Visit: Follow-up and Seizures (No new seizures to report) Objective HPI The patient is a 49 y.o. who lives at [facility] with a PMH significant for mood disorder, borderline personality disorder, psoriasis, and epilepsy since Jun 10, 1994 while at the [facility] when she experienced a convulsion. Previous provider ([facility]) followed her for kidney problems since age [...] MG t (more content not included)... Normal [facility] 36on 10-24-2024 36 Left voicemail askin g patient to give office an return call back to confirm appointment with provider. Office number left for patient to return call if they will like to confirm, cancel or reschedule appointment. Normal [facility] Basic Metabolic Profile (BMP )on 10-14-2024 BUN/CRE 17.8 RATIO Normal 10-20 [facility] Comment on above: Performed By: #### L 500.3400, L501.2450, L500.2500, L100.0100 #### [facility] [address] [place], [address] CA,Total 9.2 mg/dL Normal 8.5-10.1 [facility] Comment on above: Performed By: #### L 500.3400, L501.2450, L500.2500, L100.0100 #### [facility] [address] [place], [address] Chloride [Moles/Vol] 102 mmol/L Normal 98-107 [facility] Comment on above: Performed By: #### L 500.3400, L501.2450, L500.2500, L100.0100 #### [facility] [address] [place], [address] CO2 [Moles/Vol] 30.0 mmol/L Normal 21.0-32.0 [facility] Comment on above: Performed By: #### L 500.3400, L501.2450, L500.2500, L100.0100 #### [facility] [address] [place], [address] Creatinine [Mass/Vol] 1.46 mg/dL High 0.55-1.02 [facility] Comment on above: Result Comment: The validity of the calculated GFR GFRAA in patients over 70 years has not been determined. Clinical correlation is essential. Performed By: #### L 500.3400, L501.2450, L500.2500, L100.0100 #### [facility] [address] [place], [address] ECRCL 41.96 ml/min Normal [facility] Comment on above: Performed By: #### L 500.3400, L501.2450, L500.2500, L100.0100 #### [facility] [address] [place], [address] EST GFR - AA 49 mL/min Low >60 [facility] Comment on above: Result Comment: Afri can Indian GFR Calc Performed By: #### L 500.3400, L501.2450, L500.2500, L100.0100 #### [facility] [address] [place], [address] GAP 3 Low 5-15 [facility] Comment on above: Performed By: #### L 500.3400, L501.2450, L500.2500, L100.0100 #### [facility] [address] [place], [address] GFR/1.73 sq M.predicted among non-blacks MDRD (S/P/Bld) [Vol rate/Area] 40 mL/min/{1.73_m2} Low >60 [facility] Comment on above: Result Comment: Non- GFR Calc Performed By: #### L 500.3400, L501.2450, L500.2500, L100.0100 #### [facility] [address] [place], [address] Glucose [Mass/Vol] 104 mg/dL Normal 74-106 [facility] Comment on above: Result Comment: Fast ing Glucose result from 100 to 125 mg/dL suggests IMPAIRED HOMEOSTASIS per A.D.A. criteria. Performed By: #### L 500.3400, L501.2450, L500.2500, L100.0100 #### [facility] [address] [place], [address] Potassium [Moles/Vol] 4.7 mmol/L Normal 3.5-5.1 [facility] Comment on above: Performed By: #### L 500.3400, L501.2450, L500.2500, L100.0100 #### [facility] [address] [place], [address] Sodium [Moles/Vol] 135 mmol/L Low 136-145 [facility] Comment on above: Performed By: #### L 500.3400, L501.2450, L500.2500, L100.0100 #### [facility] [address] [place], [address] Urea nitrogen [Mass/Vol] 26 mg/dL High 7-18 [facility] Comment on above: Performed By: #### L 500.3400, L501.2450, L500.2500, L100.0100 #### [facility] [address] [place], [address] Bedside Glucoseon 10-14-2024 FINGERSTICK GLU 80 mg/dL Normal 74-106 [facility] Comment on above: Result Comment: ULISES GERALD OF PATIENT CARE PER NURSING PROTOCOL Performed By: #### L 500.2500, L100.0100 #### [facility] [address] [place], [address] CBC W/Diff, Automatedon 09-18 Absolute Lymph 1.21 X10 3/uL Normal 0.83-4.51 [facility] Comment on above: Performed By: #### L 500.3400, L501.2450, L500.2500, L100.0100 #### [facility] [address] [place], [address] Absolute Neut 5.7 X10 3/uL Normal 2.0-7.7 [facility] Comment on above: Performed By: #### L 500.3400, L501.2450, L500.2500, L100.0100 #### [facility] [address] [place], [address] Basophils/100 WBC (Bld) 0.3 % Normal 0-1 [facility] Comment on above: Performed By: #### L 500.3400, L501.2450, L500.2500, L100.0100 #### [facility] [address] [place], [address] Eosinophils/100 WBC (Bld) 1.1 % Normal 0-5 [facility] Comment on above: Performed By: #### L 500.3400, L501.2450, L500.2500, L100.0100 #### [facility] [address] [place], [address] Erythrocyte distribution width (RBC) [Ratio] 12.3 % Normal 11.6-14.6 [facility] Comment on above: Performed By: #### L 500.3400, L501.2450, L500.2500, L100.0100 #### [facility] [address] [place], [address] Hematocrit (Bld) [Volume fraction] 41.0 % Normal 37-47 [facility] Comment on above: Performed By: #### L 500.3400, L501.2450, L500.2500, L100.0100 #### [facility] [address] [place], [address] Hemoglobin (Bld) [Mass/Vol] 14.2 g/dL Normal 12.0-15.0 [facility] Comment on above: Performed By: #### L 500.3400, L501.2450, L500.2500, L100.0100 #### [facility] [address] [place], [address] IG% 0.400 Normal 0.0-0.9 [facility] Comment on above: Result Comment: IG% - Immature Granulocytes (promyelocytes, myelocytes and metamyelocytes) > 1% indicates that a LEFT SHIFT is Present. Performed By: #### L 500.3400, L501.2450, L500.2500, L100.0100 #### [facility] [address] [place], [address] Lymphocytes/100 WBC (Bld) 15.3 % Low 19-41 [facility] Comment on above: Performed By: #### L 500.3400, L501.2450, L500.2500, L100.0100 #### [facility] [address] [place], [address] MCH (RBC) [Entitic mass] 31.3 pg Normal 27.0-32.0 [facility] Comment on above: Performed By: #### L 500.3400, L501.2450, L500.2500, L100.0100 #### [facility] [address] [place], [address] MCHC (RBC) [Mass/Vol] 34.6 g/dL Normal 32-36 [facility] Comment on above: Performed By: #### L 500.3400, L501.2450, L500.2500, L100.0100 #### [facility] [address] [place], [address] MCV (RBC) [Entitic vol] 90.3 fL Normal 81-99 [facility] Comment on above: Performed By: #### L 500.3400, L501.2450, L500.2500, L100.0100 #### [facility] [address] [place], [address] Monocytes/100 WBC (Bld) 10.5 % High 0-10 [facility] Comment on above: Performed By: #### L 500.3400, L501.2450, L500.2500, L100.0100 #### [facility] [address] [place], [address] Neutrophils/100 WBC (Bld) 72.4 % High 47-70 [facility] Comment on above: Performed By: #### L 500.3400, L501.2450, L500.2500, L100.0100 #### [facility] [address] [place], [address] Nucleated RBC (Bld) [#/Vol] 0 10*3/uL Normal 0-5 [facility] Comment on above: Performed By: #### L 500.3400, L501.2450, L500.2500, L100.0100 #### [facility] [address] [place], [address] Platelet mean volume (Bld) [Entitic vol] 10.6 fL Normal 6.2-12.0 [facility] Comment on above: Performed By: #### L 500.3400, L501.2450, L500.2500, L100.0100 #### [facility] [address] [place], [address] Platelets (Bld) [#/Vol] 102 10*3/uL Low 150-450 [facility] Comment on above: Performed By: #### L 500.3400, L501.2450, L500.2500, L100.0100 #### [facility] [address] [place], [address] RBC (Bld) [#/Vol] 4.54 10*6/uL Normal 4.2-5.4 [facility] Comment on above: Performed By: #### L 500.3400, L501.2450, L500.2500, L100.0100 #### [facility] [address] [place], [address] RDW SD 40.7 fl Normal 35.1-43.9 [facility] Comment on above: Performed By: #### L 500.3400, L501.2450, L500.2500, L100.0100 #### [facility] [address] [place], [address] WBC (Bld) [#/Vol] 7.9 10*3/uL Normal 4.4-11.0 [facility] Comment on above: Performed By: #### L 500.3400, L501.2450, L500.2500, L100.0100 #### [facility] [address] [place], [address] Chest 1 View (Portable)on Chest 1 View (Portable) [facility] Imaging Services [address] [place] [address] Chest 1 View (Portable) MR#: [id number] Acct: [id number] Name: REEMA SHAH Rep #: [id number] : 1975 F 49 From: Alejandro Sanders MD PCP: Dr. Sree Jamison MD Status: [facility] ER Study: Chest 1 View (Portable) Date of Exam: 10/14/24 Exam# [id number] Ordering Dr: [place] [id number] INDICATION: cough EXAMINATION/TECHNIQUE: X-RAY - XR Chest [...] Dr. Sree Jamison MD; Fran Naylor DO Bulker: Signed Normal [facility] Emergency Department Summary on 10-14-2024 Emergency Department Summary [facility] Medical Records Department [address] [place] [address] Emergency Department Summary 10/14/24 MR#: [id number] Acct: [id number] Name: REEMA SHAH Rep #: [id number] : 1975 49 From: Fran Naylor DO PCP: Dr. Sree Jamison MD Status:DEP [...] contact. She states she has been trying azqg-aid-fmekxmv medications without symptom improvement and has her symptoms will not resolve she presents for evaluation [facility] Medical History Long-term use of high-risk medication Systolic heart failure Major depressive disorder Tremor History of DE (myocardial infarction) History of TIA (transient ischemic [...] AdvReac Vomiting (more content not included)... Normal [facility] Lipaseon 10-14-2024 Lipase [Catalytic activity/Vol] 73 U/L Normal 13-75 [facility] Comment on above: Result Comment: Redd stovall note: LIPASE revised reference range effective 23. New Lipase methodology. Expected to produce lower values than the previous assay method. NEW Reference Range: 13 - 75 U/L Performed By: #### L 500.3400, L501.2450, L500.2500, L100.0100 #### [facility] [address] [place], [address] Liver Profileon 10-14-2024 Albumin [Mass/Vol] 3.5 g/dL Normal 3.2-5.0 [facility] Comment on above: Performed By: #### L 500.3400, L501.2450, L500.2500, L100.0100 #### [facility] [address] [place], [address] ALK P 121 U/L High 45-117 [facility] Comment on above: Performed By: #### L 500.3400, L501.2450, L500.2500, L100.0100 #### [facility] [address] [place], [address] ALT [Catalytic activity/Vol] 26 U/L Normal 13-56 [facility] Comment on above: Performed By: #### L 500.3400, L501.2450, L500.2500, L100.0100 #### [facility] [address] [place], [address] AST [Catalytic activity/Vol] 19 U/L Normal 15-37 [facility] Comment on above: Performed By: #### L 500.3400, L501.2450, L500.2500, L100.0100 #### [facility] [address] [place], [address] Bilirubin [Mass/Vol] 0.40 mg/dL Normal 0.20-1.00 [facility] Comment on above: Result Comment: For patients on eltrombopag therapy, use of Dimension [place] TBIL is not recommended. Performed By: #### L 500.3400, L501.2450, L500.2500, L100.0100 #### [facility] [address] [place], [address] Bilirubin.direct [Mass/Vol] 0.12 mg/dL Normal 0.00-0.30 [facility] Comment on above: Performed By: #### L 500.3400, L501.2450, L500.2500, L100.0100 #### [facility] [address] [place], [address] Globulin (S) [Mass/Vol] 3.8 g/dL Normal 2.2-4.2 [facility] Comment on above: Performed By: #### L 500.3400, L501.2450, L500.2500, L100.0100 #### [facility] [address] [place], [address] T PROT 7.3 g/dL Normal 6.4-8.2 [facility] Comment on above: Performed By: #### L 500.3400, L501.2450, L500.2500, L100.0100 #### [facility] [address] [place], [address] M100.678on 10-14-2024 M100.678 Pending SARS-CoV-2 (COVID 19) Negative INFLUENZA A Negative INFLUENZA B Negative RSV PCR Negative Normal [facility] Comment on above: Performed By: #### L 500.2500, L501.8100, L501.5200, L100.0100 #### [facility] [address] [place], [address] Urinalysis, Completeon 10-14 BACTERIA 0 SEEN Normal None Seen [facility] Comment on above: Order Comment: COLLE CTOR TO SPECIFY Performed By: #### L 500.2500, L501.8100, L501.5200, L100.0100 #### [facility] [address] [place], [address] EPI,SQUAMOUS 0 SEEN Normal 5-10 [facility] Comment on above: Order Comment: COLLE CTOR TO SPECIFY Performed By: #### L 500.2500, L501.8100, L501.5200, L100.0100 #### [facility] [address] [place], [address] Mucus Ql (Urine sed) 0 SEEN Normal [facility] Comment on above: Order Comment: COLLE CTOR TO SPECIFY Performed By: #### L 500.2500, L501.8100, L501.5200, L100.0100 #### [facility] [address] [place], [address] RBC 0 SEEN Normal 0-5 [facility] Comment on above: Order Comment: COLLE CTOR TO SPECIFY Performed By: #### L 500.2500, L501.8100, L501.5200, L100.0100 #### [facility] [address] [place], [address] WBC 0 SEEN Normal 0-5 [facility] Comment on above: Order Comment: COLLE CTOR TO SPECIFY Performed By: #### L 500.2500, L501.8100, L501.5200, L100.0100 #### [facility] [address] [place], [address] Emergency Department Summary on 10-02-2024 Emergency Department Summary [facility] Medical Records Department [address] [facility] [place] [address] Emergency Department Summary 10/02/24 MR#: [id number] Acct: [id number] Name: REEMA SHAH Rep #: [id number] : 1975 49 From: Geovanny Arndt DO [...] for Parasthesia, Weakness or Loss of Funtion [facility] History Long-term use of high-risk medication Systolic heart failure Major depressive disorder Tremor History of DE (myocardial infarction) History of TIA (transient ischemic [...] 19:16 erythromycin (more content not included)... Normal [facility] Venous Duplex Imag/Limited/U ely 10-02-2024 Venous Duplex Imag/Limited/Uni [facility] Imaging Services [address] [place] [address] Venous Duplex Imag/Limited/Uni MR#: [id number] Acct: [id number] Name: REEMA SHAH Rep #: [id number] : 1975 F 49 From: Howard Chicas DO PCP: Dr. Sree Jamison MD Status: REG ER Study: Venous Duplex Imag/Limited/Uni Date of Exam: 12/03/23 Exam# [id number] Ordering Dr: [place] [id number] INDICATION: RT LEG PAIN EXAMINATION: Ultrasound US [...] 20:41 EST Reading Location ID and State: [address] [place] [address] Tel [phone], Service support , CC: Dr. Geovanny Arndt DO; Dr. Sree Jamison MD Bulker: Signed Normal [facility] 12 Lead EKGon 09-26-2024 12 Lead EKG [facility] Cardiovascular Services [address] [place] [address] 12 Lead EKG 09/26/24 1223 MR#: [id number] Acct: [id number] Name: REEMA SHAH Rep #: [id number] : 1975 49 From: [place] Ross MD [...] Normal ECG Confirmed by OMA ALEXIS, NATO ([id number]), supervising editor news reel VIVI VILLARREAL ([id number]) on 09/27/2024 12:38:46 PM Referred By: Confirmed By: NATO ROSS MD 09/27/24 1238 Date [place] Ross MD CC: Dr. Sree Jamison MD; Dr. Georges Kelley DO Signed Normal [facility] Abdomen/Pelvis W IV Cont ONL Yon 09-26-2024 Abdomen/Pelvis W IV Cont ONLY [facility] Imaging Services [address] [place] [address] Abdomen/Pelvis W IV Cont ONLY MR#: [id number] Acct: [id number] Name: REEMA SHAH Rep #: [id number] : 1975 F 49 From: Son owusu MD PCP: Dr. Sree Jamison MD Status: DEP ER Study: Abdomen/Pelvis W IV Cont ONLY Date of Exam: Exam# [id number] Ordering Dr: Georges Kelley DO ADDENDUM by Dr. Son Hernandez MD on 10/05/24 at 0828 ==== ADDENDUM ==== [id number] ADDENDUM report for billing purposes. Six-month follow-up CT scan of the chest recommended for follow-up and a 7 mm noncalcified nodule in the peripheral lateral aspect of the right lower lobe. Electronically Signed: Son Hernandez MD at 8:28 EST , 10/05/24827 Date cc: Dr. Sree Jamison MD; Dr. Georges Kelley DO * Signed ADDENDUM by Dr. Son Hernnadez MD on 10/05/[address]/Abdomen/Pelvis W IV Cont ONLY IMPRESSION: undefined 10/05/24 08 Date cc: Dr. Sree Jamison MD; Dr. Georges Kelley, DO * Signed [id number] STUDY: CT ABDOMEN AND PELVIS WITH CONTRAST [...] Electronically Signed: Son Hernandez MD at 13:09 [facility] Reading Location ID and State: [address] [place] [address] , Service support , CC: Dr. Sree Jamison MD; Dr. Georges Kelley DO Bulker: Signed Normal [facility] Brain/Head without Contrast n 09-26-2024 Brain/Head without Contrast [facility] Imaging Services [address] [place] [address] [id number] Brain/Head without Contrast MR#: [id number] Acct: [id number] Name: REEMA SHAH Rep #: [id number] : 1975 F 49 From: Son owusu MD PCP: Dr. Sree Jamison MD Status: [facility] Study: Brain/Head without Contrast Date of Exam: 09/17 Exam# [id number] Ordering Dr: [place] [id number] STUDY: CT BRAIN WITHOUT CONTRAST REASON FOR [...] 13:03 EST Reading Location ID and State: [address] [place] [address] , Service support , CC: Dr. Sree Jamison MD; Dr. Georges Kelley DO Bulker: Signed Normal [facility] CBC W/Diff, Automatedon 12- Absolute Lymph 1.31 X10 3/uL Normal 0.83-4.51 [facility] Comment on above: Performed By: #### L 500.2500, L501.8100, L501.5200, L100.0100 #### [facility] [address] [place], [place], [address] Absolute Neut 3.2 X10 3/uL Normal 2.0-7.7 [facility] Comment on above: Performed By: #### L 500.2500, L501.8100, L501.5200, L100.0100 #### [facility] [address] [place], [address] Basophils/100 WBC (Bld) 0.4 % Normal 0-1 [facility] Comment on above: Performed By: #### L 500.2500, L501.8100, L501.5200, L100.0100 #### [facility] [address] [place], [address] Eosinophils/100 WBC (Bld) 1.9 % Normal 0-5 [facility] Comment on above: Performed By: #### L 500.2500, L501.8100, L501.5200, L100.0100 #### [facility] [address] [place], [address] Erythrocyte distribution width (RBC) [Ratio] 12.6 % Normal 11.6-14.6 [facility] Comment on above: Performed By: #### L 500.2500, L501.8100, L501.5200, L100.0100 #### [facility] [address] [place], [address] Hematocrit (Bld) [Volume fraction] 40.3 % Normal 37-47 [facility] Comment on above: Performed By: #### L 500.2500, L501.8100, L501.5200, L100.0100 #### [facility] [address] [place], [address] Hemoglobin (Bld) [Mass/Vol] 13.3 g/dL Normal 12.0-15.0 [facility] Comment on above: Performed By: #### L 500.2500, L501.8100, L501.5200, L100.0100 #### [facility] [address] [place], [address] IG% 0.600 Normal 0.0-0.9 [facility] Comment on above: Result Comment: IG% - Immature Granulocytes (promyelocytes, myelocytes and metamyelocytes) > 1% indicates that a LEFT SHIFT is Present. Performed By: #### L 500.2500, L501.8100, L501.5200, L100.0100 #### [facility] [address] [place], [address] Lymphocytes/100 WBC (Bld) 25.5 % Normal 19-41 [facility] Comment on above: Performed By: #### L 500.2500, L501.8100, L501.5200, L100.0100 #### [facility] [address] [place], [address] MCH (RBC) [Entitic mass] 30.3 pg Normal 27.0-32.0 [facility] Comment on above: Performed By: #### L 500.2500, L501.8100, L501.5200, L100.0100 #### [facility] [address] [place], [address] MCHC (RBC) [Mass/Vol] 33.0 g/dL Normal 32-36 [facility] Comment on above: Performed By: #### L 500.2500, L501.8100, L501.5200, L100.0100 #### [facility] [address] [place], [address] MCV (RBC) [Entitic vol] 91.8 fL Normal 81-99 [facility] Comment on above: Performed By: #### L 500.2500, L501.8100, L501.5200, L100.0100 #### [facility] [address] [place], [address] Monocytes/100 WBC (Bld) 8.6 % Normal 0-10 [facility] Comment on above: Performed By: #### L 500.2500, L501.8100, L501.5200, L100.0100 #### [facility] [address] [place], [address] Neutrophils/100 WBC (Bld) 63.0 % Normal 47-70 [facility] Comment on above: Performed By: #### L 500.2500, L501.8100, L501.5200, L100.0100 #### [facility] [address] [place], [address] Nucleated RBC (Bld) [#/Vol] 0 10*3/uL Normal 0-5 [facility] Comment on above: Performed By: #### L 500.2500, L501.8100, L501.5200, L100.0100 #### [facility] [address] [place], [address] Platelet mean volume (Bld) [Entitic vol] 10.6 fL Normal 6.2-12.0 [facility] Comment on above: Performed By: #### L 500.2500, L501.8100, L501.5200, L100.0100 #### [facility] [address] [place], [address] Platelets (Bld) [#/Vol] 103 10*3/uL Low 150-450 [facility] Comment on above: Performed By: #### L 500.2500, L501.8100, L501.5200, L100.0100 #### [facility] [address] [place], [address] RBC (Bld) [#/Vol] 4.39 10*6/uL Normal 4.2-5.4 [facility] Comment on above: Performed By: #### L 500.2500, L501.8100, L501.5200, L100.0100 #### [facility] [address] [place], [address] RDW SD 41.6 fl Normal 35.1-43.9 [facility] Comment on above: Performed By: #### L 500.2500, L501.8100, L501.5200, L100.0100 #### [facility] [address] [place], [address] WBC (Bld) [#/Vol] 5.1 10*3/uL Normal 4.4-11.0 [facility] Comment on above: Performed By: #### L 500.2500, L501.8100, L501.5200, L100.0100 #### [facility] [address] [place], [address] Comprehensive Metabolic Prof ilon 09-26-2024 Albumin [Mass/Vol] 3.2 g/dL Normal 3.2-5.0 [facility] Comment on above: Performed By: #### L 500.2500, L501.8100, L501.5200, L100.0100 #### [facility] [address] [place], [address] Albumin/Globulin [Mass ratio] 1.0 {ratio} Normal 0.9-2.4 [facility] Comment on above: Performed By: #### L 500.2500, L501.8100, L501.5200, L100.0100 #### [facility] [address] [place], [address] ALK P 113 U/L Normal 45-117 [facility] Comment on above: Performed By: #### L 500.2500, L501.8100, L501.5200, L100.0100 #### [facility] [address] [place], [address] ALT [Catalytic activity/Vol] 36 U/L Normal 13-56 [facility] Comment on above: Performed By: #### L 500.2500, L501.8100, L501.5200, L100.0100 #### [facility] [address] [place], [address] AST [Catalytic activity/Vol] 28 U/L Normal 15-37 [facility] Comment on above: Performed By: #### L 500.2500, L501.8100, L501.5200, L100.0100 #### [facility] [address] [place], [address] Bilirubin [Mass/Vol] 0.30 mg/dL Normal 0.20-1.00 [facility] Comment on above: Result Comment: For patients on eltrombopag therapy, use of Dimension [place] TBIL is not recommended. Performed By: #### L 500.2500, L501.8100, L501.5200, L100.0100 #### [facility] [address] [place], [address] BUN/CRE 20.5 RATIO High 10-20 [facility] Comment on above: Performed By: #### L 500.2500, L501.8100, L501.5200, L100.0100 #### [facility] [address] [place], [address] CA,Total 9.3 mg/dL Normal 8.5-10.1 [facility] Comment on above: Performed By: #### L 500.2500, L501.8100, L501.5200, L100.0100 #### [facility] [address] [place], [address] Chloride [Moles/Vol] 108 mmol/L High 98-107 [facility] Comment on above: Performed By: #### L 500.2500, L501.8100, L501.5200, L100.0100 #### [facility] [address] [place], [address] CO2 [Moles/Vol] 24.0 mmol/L Normal 21.0-32.0 [facility] Comment on above: Performed By: #### L 500.2500, L501.8100, L501.5200, L100.0100 #### [facility] [address] [place], [address] Creatinine [Mass/Vol] 1.32 mg/dL High 0.55-1.02 [facility] Comment on above: Result Comment: The validity of the calculated GFR GFRAA in patients over 70 years has not been determined. Clinical correlation is essential. Performed By: #### L 500.2500, L501.8100, L501.5200, L100.0100 #### [facility] [address] [place], [address] ECRCL 46.04 ml/min Normal [facility] Comment on above: Performed By: #### L 500.2500, L501.8100, L501.5200, L100.0100 #### [facility] [address] [place], [address] EST GFR - AA 55 mL/min Low >60 [facility] Comment on above: Result Comment: Afri can Indian GFR Calc Performed By: #### L 500.2500, L501.8100, L501.5200, L100.0100 #### [facility] [address] [place], [address] GAP 5 Normal 5-15 [facility] Comment on above: Performed By: #### L 500.2500, L501.8100, L501.5200, L100.0100 #### [facility] [address] [place], [address] GFR/1.73 sq M.predicted among non-blacks MDRD (S/P/Bld) [Vol rate/Area] 45 mL/min/{1.73_m2} Low >60 [facility] Comment on above: Result Comment: Non- GFR Calc Performed By: #### L 500.2500, L501.8100, L501.5200, L100.0100 #### [facility] [address] [place], [address] Globulin (S) [Mass/Vol] 3.3 g/dL Normal 2.2-4.2 [facility] Comment on above: Performed By: #### L 500.2500, L501.8100, L501.5200, L100.0100 #### [facility] [address] [place], [address] Glucose [Mass/Vol] 96 mg/dL Normal 74-106 [facility] Comment on above: Performed By: #### L 500.2500, L501.8100, L501.5200, L100.0100 #### [facility] [address] [place], [address] Potassium [Moles/Vol] 4.8 mmol/L Normal 3.5-5.1 [facility] Comment on above: Performed By: #### L 500.2500, L501.8100, L501.5200, L100.0100 #### [facility] [address] [place], [address] Sodium [Moles/Vol] 138 mmol/L Normal 136-145 [facility] Comment on above: Performed By: #### L 500.2500, L501.8100, L501.5200, L100.0100 #### [facility] [address] [place], [address] T PROT 6.5 g/dL Normal 6.4-8.2 [facility] Comment on above: Performed By: #### L 500.2500, L501.8100, L501.5200, L100.0100 #### [facility] [address] [place], [address] Urea nitrogen [Mass/Vol] 27 mg/dL High 7-18 [facility] Comment on above: Performed By: #### L 500.2500, L501.8100, L501.5200, L100.0100 #### [facility] [address] [place], [address] Emergency Department Summary on 09-26-2024 Emergency Department Summary [facility] Medical Records Department [address] [place] [address] Emergency Department Summary 09/26/24 MR#: [id number] Acct: [id number] Name: REEMA SHAH Rep #: [id number] : 1975 49 From: Georges Kelley DO [...] is requesting this be evaluated here today. [facility] Medical History CKD (chronic kidney disease) Diaphragmatic hernia Edema Epileptic seizure, generalized Falls Fatty liver Fracture of nasal bone GERD (gastroesophageal reflux disease) Hirsutism History of DE (myocardial infarction) History of TIA (transient ischemic [...] 11:21 Pe (more content not included)... Normal [facility] Lipaseon 09-26-2024 Lipase [Catalytic activity/Vol] 107 U/L High 13-75 [facility] Comment on above: Result Comment: Redd stovall note: LIPASE revised reference range effective 23. New Lipase methodology. Expected to produce lower values than the previous assay method. NEW Reference Range: 13 - 75 U/L Performed By: #### L 500.2500, L501.8100, L501.5200, L100.0100 #### [facility] [address] [place], [address] M100.678on 09-26-2024 M100.678 Pending SARS-CoV-2 (COVID 19) Negative INFLUENZA A Negative INFLUENZA B Negative RSV PCR Negative Normal [facility] Comment on above: Performed By: #### L 500.2500, L501.8100, L501.5200, L100.0100 #### [facility] [address] [place], [address] Urinalysis, Completeon 09-26 EPI,SQUAMOUS 0-5 SEEN Normal 5-10 [facility] Comment on above: Order Comment: CLEAN CATCH Performed By: #### L 500.2500, L501.8100, L501.5200, L100.0100 #### [facility] [facility] [address] [place], [address] BACTERIA 0 SEEN Normal None Seen [facility] Comment on above: Order Comment: CLEAN CATCH Performed By: #### L 500.2500, L501.8100, L501.5200, L100.0100 #### [facility] [address] [place], [address] Mucus Ql (Urine sed) 0 SEEN Normal [facility] Comment on above: Order Comment: CLEAN CATCH Performed By: #### L 500.2500, L501.8100, L501.5200, L100.0100 #### [facility] [address] [place], [address] RBC 0 SEEN Normal 0-5 [facility] Comment on above: Order Comment: CLEAN CATCH Performed By: #### L 500.2500, L501.8100, L501.5200, L100.0100 #### [facility] [address] [place], [address] WBC 0 SEEN Normal 0-5 [facility] Comment on above: Order Comment: CLEAN CATCH Performed By: #### L 500.2500, L501.8100, L501.5200, L100.0100 #### [facility] [address] [place], [address] Office Visiton 08-30-2024 Follow-up visit [id number] Reema Shah 1975 F Date Provider Department Center 08/30/2024 GAYATRI FLORES [facility] None Family History Problem Relation Age [...] Grandmother Paternal Grandfather Daughter Alive Level of Service:29487 SC OFFICE/OUTPATIENT ESTABLISHED MOD MDM 30 MIN Reason for Visit and Comments: Seborrheic Dermatitis [[id number]] - PRASANTH: 05/31/24 with Gayatri Bobby PA-C (JY) [facility] Progress Noteon 08-30-2024 Progress Note DATE OF SERVICE: 08/30/2024 PATIENT NAME: Reema Shah : 1975 AGE: 48 y.o. CLINIC NUMBER: [id number] Visit type: Established patient Chief Complaint Patient [...] on face, armpits, groin. Risks associated with intermediate topical steroid use reviewed in detail. Patient [...] Gayatri Bobby PA-C 08/30/24 3:36 PM Normal [facility] CBC W/Diff, Automatedon 10-0 4 Anisocytosis Ql (Bld) RARE Normal [facility] Comment on above: Performed By: #### L 500.2500, L501.8100, L501.5200, L100.0100 #### [facility] [address] [place], [address] MACROCYTOSIS RARE Normal [facility] Comment on above: Performed By: #### L 500.2500, L501.8100, L501.5200, L100.0100 #### [facility] [address] [place], [address] PLT EST MOD DEC Normal ADEQ [facility] Comment on above: Performed By: #### L 500.2500, L501.8100, L501.5200, L100.0100 #### [facility] [address] [place], [address] PLT MORPH LARGE Normal [facility] Comment on above: Performed By: #### L 500.2500, L501.8100, L501.5200, L100.0100 #### [facility] [address] [place], [address] RED CELL MORPH N CHROM Normal NORM C C [facility] Comment on above: Performed By: #### L 500.2500, L501.8100, L501.5200, L100.0100 #### [facility] [address] [place], [address] Comprehensive Metabolic Prof ilon 07-25-2024 Albumin [Mass/Vol] 3.4 g/dL Normal 3.2-5.0 [facility] Comment on above: Performed By: #### L 500.2500, L501.8100, L501.5200, L100.0100 #### [facility] [address] [place], [address] Albumin/Globulin [Mass ratio] 1.1 {ratio} Normal 0.9-2.4 [facility] Comment on above: Performed By: #### L 500.2500, L501.8100, L501.5200, L100.0100 #### [facility] [address] [place], [address] ALK P 99 U/L Normal 45-117 [facility] Comment on above: Performed By: #### L 500.2500, L501.8100, L501.5200, L100.0100 #### [facility] [address] [place], [address] ALT [Catalytic activity/Vol] 36 U/L Normal 13-56 [facility] Comment on above: Performed By: #### L 500.2500, L501.8100, L501.5200, L100.0100 #### [facility] [address] [place], [address] AST [Catalytic activity/Vol] 37 U/L Normal 15-37 [facility] Comment on above: Performed By: #### L 500.2500, L501.8100, L501.5200, L100.0100 #### [facility] [address] [place], [address] Bilirubin [Mass/Vol] 0.20 mg/dL Normal 0.20-1.00 [facility] Comment on above: Result Comment: For patients on eltrombopag therapy, use of Dimension [place] TBIL is not recommended. Performed By: #### L 500.2500, L501.8100, L501.5200, L100.0100 #### [facility] [address] [place], [address] BUN/CRE 15.5 RATIO Normal 10-20 [facility] Comment on above: Performed By: #### L 500.2500, L501.8100, L501.5200, L100.0100 #### [facility] [address] [place], [address] CA,Total 8.5 mg/dL Normal 8.5-10.1 [facility] Comment on above: Performed By: #### L 500.2500, L501.8100, L501.5200, L100.0100 #### [facility] [address] [place], [address] Chloride [Moles/Vol] 105 mmol/L Normal 98-107 [facility] Comment on above: Performed By: #### L 500.2500, L501.8100, L501.5200, L100.0100 #### [facility] [address] [place], [address] CO2 [Moles/Vol] 25.0 mmol/L Normal 21.0-32.0 [facility] Comment on above: Performed By: #### L 500.2500, L501.8100, L501.5200, L100.0100 #### [facility] [address] [place], [address] Creatinine [Mass/Vol] 1.48 mg/dL High 0.55-1.02 [facility] Comment on above: Result Comment: The validity of the calculated GFR GFRAA in patients over 70 years has not been determined. Clinical correlation is essential. Performed By: #### L 500.2500, L501.8100, L501.5200, L100.0100 #### [facility] [address] [place], [address] ECRCL 40.99 ml/min Normal [facility] Comment on above: Performed By: #### L 500.2500, L501.8100, L501.5200, L100.0100 #### [facility] [address] [place], [address] EST GFR - AA 48 mL/min Low >60 [facility] Comment on above: Result Comment: Afri can Indian GFR Calc Performed By: #### L 500.2500, L501.8100, L501.5200, L100.0100 #### [facility] [address] [place], [address] GAP 8 Normal 5-15 [facility] Comment on above: Performed By: #### L 500.2500, L501.8100, L501.5200, L100.0100 #### [facility] [address] [place], [address] GFR/1.73 sq M.predicted among non-blacks MDRD (S/P/Bld) [Vol rate/Area] 40 mL/min/{1.73_m2} Low >60 [facility] Comment on above: Result Comment: Non- GFR Calc Performed By: #### L 500.2500, L501.8100, L501.5200, L100.0100 #### [facility] [address] [place], [address] Globulin (S) [Mass/Vol] 3.1 g/dL Normal 2.2-4.2 [facility] Comment on above: Performed By: #### L 500.2500, L501.8100, L501.5200, L100.0100 #### [facility] [address] [place], [address] Glucose [Mass/Vol] 115 mg/dL High 74-106 [facility] Comment on above: Result Comment: Fast ing Glucose result from 100 to 125 mg/dL suggests IMPAIRED HOMEOSTASIS per A.D.A. criteria. Performed By: #### L 500.2500, L501.8100, L501.5200, L100.0100 #### [facility] [address] [place], [address] Potassium [Moles/Vol] 4.6 mmol/L Normal 3.5-5.1 [facility] Comment on above: Performed By: #### L 500.2500, L501.8100, L501.5200, L100.0100 #### [facility] [address] [place], [address] Sodium [Moles/Vol] 138 mmol/L Normal 136-145 [facility] Comment on above: Performed By: #### L 500.2500, L501.8100, L501.5200, L100.0100 #### [facility] [address] [place], [address] T PROT 6.5 g/dL Normal 6.4-8.2 [facility] Comment on above: Performed By: #### L 500.2500, L501.8100, L501.5200, L100.0100 #### [facility] [address] [place], [address] Urea nitrogen [Mass/Vol] 23 mg/dL High 7-18 [facility] Comment on above: Performed By: #### L 500.2500, L501.8100, L501.5200, L100.0100 #### [facility] [address] [place], [address] Emergency Department Summary on 07-25-2024 Emergency Department Summary [facility] Medical Records Department [address] [place] [address] Emergency Department Summary 07/25/24 MR#: [id number] Acct: [id number] Name: REEMA SHAH Rep #: [id number] : 1975 48 From: Archie Sanches DO PCP: Dr. Sree Jamison MD Status:REG ER Location: ED HPI History of Present Illness Chief Complaint: Seizure Detail of Chief Complaint: Seizure Informant: patient Narrative Narrative: Patient presents to the emergency department via EMS from skilled nursing with complaint of seizures today x 5. [...] or head injuries. She denies recent illness. [facility] Medical History CKD (chronic kidney disease) Diaphragmatic hernia Edema Epileptic seizure, generalized Falls Fatty liver Fracture of nasal bone GERD (gastroesophageal reflux disease) Hirsutism History of DE (myocardial infarction) History of TIA (transient ischemic [...] 07/25/24 1 (more content not included)... Normal [facility] Urinalysis, Completeon 07-25 EPI,SQUAMOUS 0-5 SEEN Normal 5-10 [facility] Comment on above: Order Comment: CLEAN CATCH Performed By: #### L 500.2500, L501.8100, L501.5200, L100.0100 #### [facility] [address] [place], [address] BACTERIA 0 SEEN Normal None Seen [facility] Comment on above: Order Comment: CLEAN CATCH Performed By: #### L 500.2500, L501.8100, L501.5200, L100.0100 #### [facility] [address] [place], [address] Mucus Ql (Urine sed) 0 SEEN Normal [facility] Comment on above: Order Comment: CLEAN CATCH Performed By: #### L 500.2500, L501.8100, L501.5200, L100.0100 #### [facility] [address] [place], [address] RBC 0 SEEN Normal 0-5 [facility] Comment on above: Order Comment: CLEAN CATCH Performed By: #### L 500.2500, L501.8100, L501.5200, L100.0100 #### [facility] [address] [place], [address] WBC 0 SEEN Normal 0-5 [facility] Comment on above: Order Comment: CLEAN CATCH Performed By: #### L 500.2500, L501.8100, L501.5200, L100.0100 #### [facility] [address] [place], [address] Valproic Acid (Depakene) Lev woody 07-25-2024 VALPROIC ACID 58 ug/mL Normal 50-100 [facility] Comment on above: Performed By: #### L 500.2500, L501.8100, L501.5200, L100.0100 #### [facility] [place], [address] Office Visiton 07-18-2024 Follow-up visit [id number] Reema Shah 1975 F Date Provider Department Center 07/18/2024 [id number] CHOPRA [facility] [place] None Family History Problem Relation [...] Grandmother Paternal Grandfather Daughter Alive Level of Service:20408 SC OFFICE/OUTPATIENT ESTABLISHED HIGH [facility] 40 MIN Reason for Visit and Comments: Follow-up [851345] Seizures [97] Tremors [155184] Normal [facility] Progress Noteon 07-18-2024 Progress Note [facility] [address] [facility] [address] Dept: [phone] Dept Loc: [phone] Valentina Chopra MD CHIEF COMPLAINT: Chief Complaint [...] fallen. She reports that she was in [facility] in [place]. She reports that she ended up in [...] Anxiety, Chronic kidney disease, Epilepsy ([facility]), Essential hypertension, Gastro-esophageal reflux disease without esophagitis, Hypokalemia, Hypothyroidism, Obesity, Personal history of urinary (tract) infections, Psoriasis, Repeated falls, and Thrombocytopenia ([facility]). Past Surgical History: has a past surgical [...] in th (more content not included)... Normal [facility] 36on 07-11-2024 36 We have been unable to reach your patient to schedule their testing. Test Name: eeg intermediate 1st Attempt: 07/07 2nd Attempt: 07/10 3rd attempt; 07/11 left message with tera from the nursing facility who states she will take and give to nursing staff. Vanda was notified this is for mainly documentation. Normal [facility] Office Visiton 07-07-2024 Follow-up visit [id number] Reema Shah 1975 F Date Provider Department Center 07/07/2024 [id number] SORTO [facility] None Family History Problem Relation Age [...] Grandmother Paternal Grandfather Daughter Alive Level of Service:57017 SC OFFICE/OUTPATIENT ESTABLISHED HIGH MDM 40 MIN Reason for Visit and Comments: New Patient [542] - New Patient referred to us by Dr. Chopra for seizures. Last seizure was in March of 2024 and went to [facility] in [place]. Normal [facility] Progress Noteon 07-07-2024 Progress Note Department of Neurological Sciences Section of Epilepsy [facility] [address] [facility] [address] Dept: [phone] Dept Loc: [phone] . Visit type: follow-up Reason for Visit: New Patient (New Patient referred to us by Dr. Chopra for seizures. Last seizure was in March of 2024 and went to [facility] ED in [place].) Per Dr Chopra (who had been following [...] is a 48 y.o. who lives at [facility] with a PMH significant for mood disorder, borderline personality disorder, psoriasis, and epilepsy since Jun 10, 1994 while at the [facility] when she experienced a convulsion. Previous provider ([facility]) followed her for kidney problems since age [...] tablet lidocaine (more content not included)... Normal [facility] RENAL FUNCTION PANELon 06-06 Albumin [Mass/Vol] 3.6 g/dL Normal 3.2-5.2 [facility] Comment on above: Order Comment: [facility] has implemented the eGFR calculation approach that does not have a coefficient for race that conforms to the NKF-ASN Task Force Recommendations. Performed By: #### L [id number] #### [facility] [address] [place], [place] [address] Ismael Torre M.D. [id number] Anion gap [Moles/Vol] 12 mmol/L Normal 10-20 [facility] Comment on above: Order Comment: [facility] has implemented the eGFR calculation approach that does not have a coefficient for race that conforms to the NKF-ASN Task Force Recommendations. Performed By: #### L [id number] #### [facility] [address] [place], [place] [address] Ismael Torre M.D. [id number] Calcium [Mass/Vol] 8.5 mg/dL Normal 8.4-10.2 [facility] Comment on above: Order Comment: [facility] has implemented the eGFR calculation approach that does not have a coefficient for race that conforms to the NKF-ASN Task Force Recommendations. Performed By: #### L [id number] #### [facility] [address] [place], [place] [address] Ismael Torre M.D. [id number] Chloride [Moles/Vol] 102 mmol/L Normal 98-108 [facility] Comment on above: Order Comment: [facility] has implemented the eGFR calculation approach that does not have a coefficient for race that conforms to the NKF-ASN Task Force Recommendations. Performed By: #### L [id number] #### [facility] [address] [place], [place] [address] Ismael Torre M.D. [id number] Creatinine [Mass/Vol] 1.41 mg/dL High 0.40-1.10 [facility] Comment on above: Order Comment: [facility] has implemented the eGFR calculation approach that does not have a coefficient for race that conforms to the NKF-ASN Task Force Recommendations. Performed By: #### L [id number] #### [facility] [address] [place], [place] [address] Ismael Torre M.D. [id number] EGFR 46 mL/min/1.73 m2 Low >=60 [facility] Comment on above: Order Comment: [facility] has implemented the eGFR calculation approach that does not have a coefficient for race that conforms to the NKF-ASN Task Force Recommendations. Result Comment: Frieda mated GFR was calculated using the 2020 CKD-EPI creatinine equation. Performed By: #### L [id number] #### [facility] [address] [place] [address] Ismael Torre M.D. [id number] Glucose [Mass/Vol] 121 mg/dL High 65-99 [facility] Comment on above: Order Comment: [facility] has implemented the eGFR calculation approach that does not have a coefficient for race that conforms to the NKF-ASN Task Force Recommendations. Performed By: #### L [id number] #### [facility] [address] [place] [address] Ismael Torre M.D. [id number] HCO3 (Bld) [Moles/Vol] 25 mmol/L Normal 21-32 [facility] Comment on above: Order Comment: [facility] has implemented the eGFR calculation approach that does not have a coefficient for race that conforms to the NKF-ASN Task Force Recommendations. Performed By: #### L [id number] #### [facility] [address] [place] [address] Ismael Torre M.D. [id number] Phosphate [Mass/Vol] 2.4 mg/dL Low 2.7-4.5 [facility] Comment on above: Order Comment: [facility] has implemented the eGFR calculation approach that does not have a coefficient for race that conforms to the NKF-ASN Task Force Recommendations. Performed By: #### L [id number] #### [facility] [address] [place] [address] Ismael Torre M.D. [id number] Potassium [Moles/Vol] 3.8 mmol/L Normal 3.5-5.1 [facility] Comment on above: Order Comment: [facility] has implemented the eGFR calculation approach that does not have a coefficient for race that conforms to the NKF-ASN Task Force Recommendations. Performed By: #### L [id number] #### [facility] [address] [place], [place] [address] Ismael Torre M.D. [id number] Sodium [Moles/Vol] 135 mmol/L Normal 135-145 [facility] Comment on above: Order Comment: [facility] has implemented the eGFR calculation approach that does not have a coefficient for race that conforms to the NKF-ASN Task Force Recommendations. Performed By: #### L [id number] #### [facility] [address] [place], [place] [address] Ismael Torre M.D. [id number] Urea nitrogen [Mass/Vol] 18 mg/dL Normal 8-25 [facility] Comment on above: Order Comment: [facility] has implemented the eGFR calculation approach that does not have a coefficient for race that conforms to the NKF-ASN Task Force Recommendations. Performed By: #### L [id number] #### [facility] [address] [place], [place] [address] Ismael Torre M.D. [id number] Urea nitrogen/Creatinine [Mass ratio] 12.8 mg/mg Normal 10.0-20.0 [facility] Comment on above: Order Comment: [facility] has implemented the eGFR calculation approach that does not have a coefficient for race that conforms to the NKF-ASN Task Force Recommendations. Performed By: #### L [id number] #### [facility] [address] [place], [place] [address] Ismael Torre M.D. [id number] Renal function 2000 panelon 06-06-2024 Albumin [Mass/Vol] 3.6 g/dL 3.2 - 5.2 g/dL [facility] Anion gap [Moles/Vol] 12 mmol/L 10 - 2 0 mmol/L [facility] Calcium [Mass/Vol] 8.5 mg/dL 8.4 - 10. 2 mg/dL [facility] Chloride [Moles/Vol] 102 mmol/L 98 - 10 8 mmol/L [facility] Creatinine [Mass/Vol] 1.41 mg/dL High 0.40 - 1.10 mg/dL [facility] GFR/1.73 sq M.predicted CKD-EPI (S/P/Bld) [Vol rate/Area] 46 Low - PINF [facility] Comment on above: Estimated GFR was ca lculated using the 2020 CKD-EPI creatinine equation. Glucose [Mass/Vol] 121 mg/dL High 65 - 99 mg/dL [facility] HCO3 [Moles/Vol] 25 mmol/L 21 - 32 mmol/L [facility] Interpretation and review of laboratory results Abnormal [facility] Phosphate [Mass/Vol] 2.4 mg/dL Low 2.7 - 4 .5 mg/dL [facility] Potassium [Moles/Vol] 3.8 mmol/L 3.5 - 5.1 mmol/L [facility] Sodium [Moles/Vol] 135 mmol/L 135 - 145 mmol/L [facility] Urea nitrogen [Mass/Vol] 18 mg/dL 8 - 25 mg/dL [facility] Urea nitrogen/Creatinine [Mass ratio] 12.8 mg/mg 10.0 - 20.0 [facility] has implemented the eGFR calculation approach that does not have a coefficient for race that conforms to the NKF-ASN Task Force Recommendations. [facility] CBC Auto Differentialon 05-18 Erythrocyte distribution width (RBC) [Entitic vol] 13.0 % 11.6 - 14.8 % [facility] Hematocrit (Bld) [Volume fraction] 38.9 % 36.0 - 46.0 % [facility] Hemoglobin (Bld) [Mass/Vol] 12.8 g/dL 12.0 - 16.0 g/dL [facility] MCH (RBC) [Entitic mass] 30.7 pg 26.0 - 34.0 pg [facility] MCHC (RBC) [Mass/Vol] 32.9 g/dL 31.0 - 37.0 g/dL [facility] MCV (RBC) [Entitic vol] 93.3 fL 80.0 - 100.0 fL [facility] Nucleated RBC (Bld) [#/Vol] 0.00 10*3/uL [facility] Nucleated RBC/100 WBC (Bld) [Ratio] 0.0 % [facility] Platelet mean volume (Bld) [Entitic vol] 10.1 fL 9.4 - 12.4 fL [facility] Platelets (Bld) [#/Vol] 74 10*3/uL Low [facility] RBC (Bld) [#/Vol] 4.17 10*6/uL [facility] WBC (Bld) [#/Vol] 4.08 10*3/uL Low [facility] CBC WITH AUTO DIFFERENTIALon 06-05-2024 AUTO NRBC 0.0 % Normal [facility] Comment on above: Performed By: #### L [id number] #### LAB [address] [place] [address] Ismael Torre M.D. [id number] AUTO NRBC ABS COUNT 0.00 K/mcL Normal 0.00-0.00 [facility] Comment on above: Performed By: #### L [id number] #### LAB [address] [place] [address] Ismael Torre M.D. [id number] Erythrocyte distribution width (RBC) [Ratio] 13.0 % Normal 11.6-14.8 [facility] Comment on above: Performed By: #### L [id number] #### [facility] [address] [place] [address] Ismael Torre M.D. [id number] Hematocrit (Bld) [Volume fraction] 38.9 % Normal 36.0-46.0 [facility] Comment on above: Performed By: #### L [id number] #### [facility] [address] [place] [address] Ismael Torre M.D. [id number] Hemoglobin (Bld) [Mass/Vol] 12.8 g/dL Normal 12.0-16.0 [facility] Comment on above: Performed By: #### L [id number] #### [facility] [address] [place] [address] Ismael Torre M.D. [id number] MCH (RBC) [Entitic mass] 30.7 pg Normal 26.0-34.0 [facility] Comment on above: Performed By: #### L [id number] #### [facility] [address] [place] [address] Ismael Torre M.D. [id number] MCV (RBC) [Entitic vol] 93.3 fL Normal 80.0-100.0 [facility] Comment on above: Performed By: #### L [id number] #### LAB [address] [place] [address] Ismael Torre M.D. [id number] MEAN CORPUSCULAR HEMOGLOBIN CONC 32.9 g/dL Normal 31.0-37.0 [facility] Comment on above: Performed By: #### L [id number] #### [facility] [address] [place] [address] Ismael Torre M.D. [id number] Platelet mean volume (Bld) [Entitic vol] 10.1 fL Normal 9.4-12.4 [facility] Comment on above: Performed By: #### L [id number] #### LAB [address] [place] [address] Ismael Torre M.D. [id number] Platelets (Bld) [#/Vol] 74 10*3/uL Low 150-400 [facility] Comment on above: Performed By: #### L [id number] #### LAB [address] [place] [address] Ismael Torre M.D. [id number] RBC (Bld) [#/Vol] 4.17 10*6/uL Normal 4.00-5.20 [facility] Comment on above: Performed By: #### L [id number] #### [facility] [address] [place] [address] Ismael Torre M.D. [id number] WBC (Bld) [#/Vol] 4.08 10*3/uL Low 4.50-11.00 [facility] Comment on above: Performed By: #### L [id number] #### LAB [address] [place] [address] Ismael Torre M.D. [id number] CBC and Diff Morphologyon Ovalocytes LM Ql (Bld) Few [facility] Platelets LM Ql (Bld) Decreased Abnormal Normal [facility] Polychromasia LM Ql (Bld) Few [facility] RBC morphology finding Nom (Bld) See Comment [facility] Comment on above: RBC Indices confirme d with manual peripheral smear review. COMPREHENSIVE METABOLIC PANE [place] 06-05-2024 Albumin [Mass/Vol] 3.6 g/dL Normal 3.2-5.2 [facility] Comment on above: Order Comment: [facility] has implemented the eGFR calculation approach that does not have a coefficient for race that conforms to the NKF-ASN Task Force Recommendations. Performed By: #### L [id number] #### MH LAB [address] [address] Ismael Torre M.D. [id number] ALP [Catalytic activity/Vol] 72 U/L Normal 40-150 [facility] Comment on above: Order Comment: [facility] has implemented the eGFR calculation approach that does not have a coefficient for race that conforms to the NKF-ASN Task Force Recommendations. Performed By: #### L [id number] #### [facility] [address] [address] Ismael Torre M.D. [id number] ALT [Catalytic activity/Vol] 11 U/L Normal 0-35 U/L [facility] Comment on above: Order Comment: [facility] has implemented the eGFR calculation approach that does not have a coefficient for race that conforms to the NKF-ASN Task Force Recommendations. Performed By: #### L [id number] #### [facility] [address] [address] Ismael Torre M.D. [id number] Anion gap [Moles/Vol] 11 mmol/L Normal 10-20 [facility] Comment on above: Order Comment: [facility] has implemented the eGFR calculation approach that does not have a coefficient for race that conforms to the NKF-ASN Task Force Recommendations. Performed By: #### L [id number] #### [facility] LAB [address] [address] Ismael Torre M.D. [id number] AST [Catalytic activity/Vol] 22 U/L Normal 0-35 U/L [facility] Comment on above: Order Comment: [facility] has implemented the eGFR calculation approach that does not have a coefficient for race that conforms to the NKF-ASN Task Force Recommendations. Performed By: #### L [id number] #### MH LAB [address] [id number] Ismael Torre M.D. [id number] Bilirubin [Mass/Vol] 0.2 mg/dL Normal 0.0-1.3 [facility] Comment on above: Order Comment: [facility] has implemented the eGFR calculation approach that does not have a coefficient for race that conforms to the NKF-ASN Task Force Recommendations. Performed By: #### L [id number] #### [facility] LAB [address] [id number] Ismael Torre M.D. [id number] Calcium [Mass/Vol] 8.5 mg/dL Normal 8.4-10.2 [facility] Comment on above: Order Comment: [facility] has implemented the eGFR calculation approach that does not have a coefficient for race that conforms to the NKF-ASN Task Force Recommendations. Performed By: #### L [id number] #### MH LAB [address] [address] Ismael Torre M.D. [id number] Chloride [Moles/Vol] 108 mmol/L Normal 98-108 [facility] Comment on above: Order Comment: [facility] has implemented the eGFR calculation approach that does not have a coefficient for race that conforms to the NKF-ASN Task Force Recommendations. Performed By: #### L [id number] #### [facility] LAB [address] [address] Ismael Torre M.D. [id number] Creatinine [Mass/Vol] 1.34 mg/dL High 0.40-1.10 [facility] Comment on above: Order Comment: [facility] has implemented the eGFR calculation approach that does not have a coefficient for race that conforms to the NKF-ASN Task Force Recommendations. Performed By: #### L [id number] #### [facility] LAB [address] [address] Ismael Torre M.D. [id number] EGFR 48 mL/min/1.73 m2 Low >=60 [facility] Comment on above: Order Comment: [facility] has implemented the eGFR calculation approach that does not have a coefficient for race that conforms to the NKF-ASN Task Force Recommendations. Result Comment: Frieda mated GFR was calculated using the 2020 CKD-EPI creatinine equation. Performed By: #### L [id number] #### [facility] LAB [address] [address] Ismael Torre M.D. [id number] Glucose [Mass/Vol] 81 mg/dL Normal 65-99 [facility] Comment on above: Order Comment: [facility] has implemented the eGFR calculation approach that does not have a coefficient for race that conforms to the NKF-ASN Task Force Recommendations. Performed By: #### L [id number] #### [facility] LAB [address] [address] Ismael Torre M.D. [id number] HCO3 (Bld) [Moles/Vol] 24 mmol/L Normal 21-32 [facility] Comment on above: Order Comment: [facility] has implemented the eGFR calculation approach that does not have a coefficient for race that conforms to the NKF-ASN Task Force Recommendations. Performed By: #### L [id number] #### [facility] LAB [address] [address] Ismael Torre M.D. [id number] Potassium [Moles/Vol] 4.4 mmol/L Normal 3.5-5.1 [facility] Comment on above: Order Comment: [facility] has implemented the eGFR calculation approach that does not have a coefficient for race that conforms to the NKF-ASN Task Force Recommendations. Performed By: #### L [id number] #### [facility] LAB [address] [address] Ismael Torre M.D. [id number] Protein [Mass/Vol] 5.5 g/dL Low 6.0-8.0 [facility] Comment on above: Order Comment: [facility] has implemented the eGFR calculation approach that does not have a coefficient for race that conforms to the NKF-ASN Task Force Recommendations. Performed By: #### L [id number] #### [facility] LAB [address] [address] Ismael Torre M.D. [id number] Sodium [Moles/Vol] 139 mmol/L Normal 135-145 [facility] Comment on above: Order Comment: [facility] has implemented the eGFR calculation approach that does not have a coefficient for race that conforms to the NKF-ASN Task Force Recommendations. Performed By: #### L [id number] #### [facility] LAB [address] [address] Ismael Torre M.D. [id number] Urea nitrogen [Mass/Vol] 20 mg/dL Normal 8-25 [facility] Comment on above: Order Comment: [facility] has implemented the eGFR calculation approach that does not have a coefficient for race that conforms to the NKF-ASN Task Force Recommendations. Performed By: #### L [id number] #### MH LAB [address] [place], [place] [address] Ismael Torre M.D. [id number] Urea nitrogen/Creatinine [Mass ratio] 14.9 mg/mg Normal 10.0-20.0 [facility] Comment on above: Order Comment: [facility] has implemented the eGFR calculation approach that does not have a coefficient for race that conforms to the NKF-ASN Task Force Recommendations. Performed By: #### L [id number] #### [facility] LAB [address] [address] Ismael Torre M.D. [id number] Comprehensive metabolic 2000 panelon 06-05-2024 Albumin [Mass/Vol] 3.6 g/dL 3.2 - 5.2 g/dL [facility] ALP [Catalytic activity/Vol] 72 U/L 40 - 150 U/L [facility] ALT [Catalytic activity/Vol] 11 U/L 0-35 U/L [facility] Anion gap [Moles/Vol] 11 mmol/L 10 - 2 0 mmol/L [facility] AST [Catalytic activity/Vol] 22 U/L 0-35 U/L [facility] Bilirubin [Mass/Vol] 0.2 mg/dL 0.0 - 1 .3 mg/dL [facility] Calcium [Mass/Vol] 8.5 mg/dL 8.4 - 10. 2 mg/dL [facility] Chloride [Moles/Vol] 108 mmol/L 98 - 10 8 mmol/L [facility] Creatinine [Mass/Vol] 1.34 mg/dL High 0.40 - 1.10 mg/dL [facility] GFR/1.73 sq M.predicted CKD-EPI (S/P/Bld) [Vol rate/Area] 48 Low - PINF [facility] Comment on above: Estimated GFR was ca lculated using the 2020 CKD-EPI creatinine equation. Glucose [Mass/Vol] 81 mg/dL 65 - 99 mg/dL [facility] HCO3 [Moles/Vol] 24 mmol/L 21 - 32 mmol/L [facility] Interpretation and review of laboratory results Abnormal [facility] Potassium [Moles/Vol] 4.4 mmol/L 3.5 - 5.1 mmol/L [facility] Protein [Mass/Vol] 5.5 g/dL Low 6.0 - 8.0 g/dL [facility] Sodium [Moles/Vol] 139 mmol/L 135 - 145 mmol/L [facility] Urea nitrogen [Mass/Vol] 20 mg/dL 8 - 25 mg/dL [facility] Urea nitrogen/Creatinine [Mass ratio] 14.9 mg/mg 10.0 - 20.0 [facility] has implemented the eGFR calculation approach that does not have a coefficient for race that conforms to the NKF-ASN Task Force Recommendations. [facility] EKGon 06-05-2024 [facility] EKG 12-leadon 06-05-2024 Atrial Rate 70 BPM [facility] P [place] 47 degrees [facility] P-R Interval 160 ms [facility] Q-T Interval 422 ms [facility] QRS Duration 76 ms [facility] QTC Calculation (Bezet) 455 ms [facility] R [place] 42 degrees [facility] T [place] 76 degrees [facility] Ventricular Rate 70 BPM [facility] th Normal sinus rhythm Normal ECG ECG Cart Interpretation see physician note for interpretation. Confirmed by Keke Leiva ([id number]) on 06/05/2024 7:36:56 PM [facility] MANUAL DIFFERENTIALon 2023 BASOPHILS - ABS (DIFF) 0.00 K/mcL Normal 0.00-0.30 [facility] Comment on above: Performed By: #### 4 [id number] #### LAB [address] [address] Ismael Torre M.D. [id number] BASOPHILS - REL (DIFF) 0.0 % [facility] Comment on above: Performed By: #### 4 [id number] #### LAB [address] [address] Ismael Torre M.D. [id number] EOSINOPHILS - ABS (DIFF) 0.00 K/mcL Normal 0.00-0.50 [facility] Comment on above: Performed By: #### 4 5060 #### LAB [address] [address] Ismael Torre M.D. [id number] EOSINOPHILS - REL (DIFF) 0.0 % [facility] Comment on above: Performed By: #### 4 5060 #### LAB [address] [address] Ismael Torre M.D. [id number] LYMPHOCYTE ATYPICAL - REL (DIFF) 2.6 % [facility] Comment on above: Performed By: #### 4 5060 #### LAB [address] [address] Ismael Torre M.D. [id number] LYMPHOCYTES - ABS (DIFF) 1.43 K/mcL Normal 0.90-4.00 [facility] Comment on above: Performed By: #### 4 5060 #### LAB [address] [address] Ismael Torre M.D. [id number] LYMPHOCYTES - REL (DIFF) 32.5 % [facility] Comment on above: Performed By: #### 4 5060 #### LAB [address] [address] Ismael Torre M.D. [id number] MONOCYTES - ABS (DIFF) 0.28 K/mcL Low 0.30-0.90 [facility] Comment on above: Performed By: #### 4 5060 #### LAB [address] [address] Ismael Torre M.D. [id number] MONOCYTES - REL (DIFF) 6.8 % [facility] Comment on above: Performed By: #### 4 5060 #### LAB [address] [address] Ismael Torre M.D. [id number] NEUTROPHILS - ABS (DIFF) 2.37 K/mcL Normal 1.70-7.00 [facility] Comment on above: Performed By: #### 4 5060 #### LAB [address] [address] Ismael Torre M.D. [id number] NEUTROPHILS - REL (DIFF) 58.1 % [facility] Comment on above: Performed By: #### 4 5060 #### LAB [address] [address] Ismael Torre M.D. [id number] MORPHOLOGYon 06-05-2024 OVAL SCAN Few Normal [facility] Comment on above: Performed By: #### L [id number] #### [facility] LAB [address] [address] Ismael Torre M.D. [id number] PLATELET ESTIMATE Decreased Abnormal Normal [facility] Comment on above: Performed By: #### L [id number] #### [facility] LAB [address] [address] Ismael Torre M.D. [id number] POLY SCAN Few Normal [facility] Comment on above: Performed By: #### L [id number] #### LAB [address] [address] Ismael Torre M.D. [id number] RBC MORPH SCAN See Comment Normal [facility] Comment on above: Result Comment: RBC Indices confirmed with manual peripheral smear review. Performed By: #### L [id number] #### LAB [address] [address] Ismael Torre M.D. [id number] Manual Differential panel (B ld)on 06-05-2024 Basophils (Bld) [#/Vol] 0.00 10*3/uL [facility] Basophils/100 WBC (Bld) 0.0 % [facility] Eosinophils (Bld) [#/Vol] 0.00 10*3/uL [facility] Eosinophils/100 WBC (Bld) 0.0 % [facility] Lymphocytes (Bld) [#/Vol] 1.43 10*3/uL [facility] Lymphocytes/100 WBC (Bld) 32.5 % [facility] Monocytes (Bld) [#/Vol] 0.28 10*3/uL Low [facility] Monocytes/100 WBC (Bld) 6.8 % [facility] Neutrophils (Bld) [#/Vol] 2.37 10*3/uL [facility] Neutrophils/100 WBC (Bld) 58.1 % [facility] Variant lymphocytes/100 WBC (Bld) 2.6 % [facility] No Panel Informationon 06-05 Interpretation and review of laboratory results Abnormal [facility] OP NOTEon 06-05-2024 OP NOTE OPERATIVE REPORT DATE OF SURGERY: 06.05.24 SURGEON: Raúl Hudson MD ANTENNA DESIGN ENGINEER(S): none PREOPERATIVE DIAGNOSIS: Acute appendicitis. POSTOPERATIVE DIAGNOSIS: [...] at the base of the mesoappendix. An [place] 45 stapler with a blue cartridge was [...] BY RAÚL HUDSON, ON 06/05/2024 16:43:42 Normal [facility] TISSUE EXAMon 06-05-2024 TISSUE EXAM Surgical Pathology Report Case: [id number] Authorizing Provider: Raúl Hudson MD Collected: 06/05/2024 04:36 PM Ordering Location: [facility] Periop Received: 06/06/2024 07:48 AM Pathologist: Salma [...] in greatest thickness. Masses/polyps are not identified. 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 JR Gross examination performed at: [facility] - [address] [place] [address] Microscopic examination is performed. Normal [facility] Comment on above: Performed By: #### L [id number] #### MH LAB [address] [place] [address] Ismael Torre M.D. [id number] Urine [place] Containeron 06-05 [facility] CBC Auto Differentialon 05-18 Erythrocyte distribution width (RBC) [Entitic vol] 12.9 % 11.6 - 14.8 % [facility] Hematocrit (Bld) [Volume fraction] 43.5 % 36.0 - 46.0 % [facility] Hemoglobin (Bld) [Mass/Vol] 14.7 g/dL 12.0 - 16.0 g/dL [facility] MCH (RBC) [Entitic mass] 31.3 pg 26.0 - 34.0 pg [facility] MCHC (RBC) [Mass/Vol] 33.8 g/dL 31.0 - 37.0 g/dL [facility] MCV (RBC) [Entitic vol] 92.6 fL 80.0 - 100.0 fL [facility] Nucleated RBC (Bld) [#/Vol] 0.00 10*3/uL [facility] Nucleated RBC/100 WBC (Bld) [Ratio] 0.0 % [facility] Platelet mean volume (Bld) [Entitic vol] 12.2 fL 9.4 - 12.4 fL [facility] Platelets (Bld) [#/Vol] 84 10*3/uL Low [facility] RBC (Bld) [#/Vol] 4.70 10*6/uL [facility] W[facility] (Bld) [#/Vol] 6.01 10*3/uL [facility] CBC WITH AUTO DIFFERENTIALon 06-04-2024 AUTO NRBC 0.0 % Normal [facility] Comment on above: Performed By: #### 4 5060 #### LAB [address] [address] Ismael Torre M.D. [id number] AUTO NRBC ABS COUNT 0.00 K/mcL Normal 0.00-0.00 [facility] Comment on above: Performed By: #### 4 5060 #### LAB [address] [address] Ismael Torre M.D. [id number] Erythrocyte distribution width (RBC) [Ratio] 12.9 % Normal 11.6-14.8 [facility] Comment on above: Performed By: #### 4 5060 #### LAB [address] [address] Ismael Torre M.D. [id number] Hematocrit (Bld) [Volume fraction] 43.5 % Normal 36.0-46.0 [facility] Comment on above: Performed By: #### 4 5060 #### LAB [address] [address] Ismael Torre M.D. [id number] Hemoglobin (Bld) [Mass/Vol] 14.7 g/dL Normal 12.0-16.0 [facility] Comment on above: Performed By: #### 4 5060 #### LAB [address] [address] Ismael Torre M.D. [id number] MCH (RBC) [Entitic mass] 31.3 pg Normal 26.0-34.0 [facility] Comment on above: Performed By: #### 4 5060 #### LAB [address] [address] Ismael Torre M.D. [id number] MCV (RBC) [Entitic vol] 92.6 fL Normal 80.0-100.0 [facility] Comment on above: Performed By: #### 4 5060 #### LAB [address] [address] Ismael Torre M.D. [id number] MEAN CORPUSCULAR HEMOGLOBIN CONC 33.8 g/dL Normal 31.0-37.0 [facility] Comment on above: Performed By: #### 4 5060 #### LAB [address] [address] Ismael Torre M.D. [id number] Platelet mean volume (Bld) [Entitic vol] 12.2 fL Normal 9.4-12.4 [facility] Comment on above: Performed By: #### 4 5060 #### LAB [address] [address] Ismael Torre M.D. [id number] Platelets (Bld) [#/Vol] 84 10*3/uL Low 150-400 [facility] Comment on above: Performed By: #### 4 5060 #### LAB [address] [address] Ismael Torre M.D. [id number] RBC (Bld) [#/Vol] 4.70 10*6/uL Normal 4.00-5.20 [facility] Comment on above: Performed By: #### 4 5060 #### LAB [address] [address] Ismael Torre M.D. [id number] WBC (Bld) [#/Vol] 6.01 10*3/uL Normal 4.50-11.00 [facility] Comment on above: Performed By: #### 4 5060 #### LAB [address] [address] Ismael Torre M.D. [id number] CBC and Diff Morphologyon Platelets LM Ql (Bld) Decreased Abnormal Normal [facility] Polychromasia LM Ql (Bld) Few [facility] RBC morphology finding Nom (Bld) See Comment [facility] Comment on above: RBC Indices confirme d with manual peripheral smear review. COMPREHENSIVE METABOLIC PANE [place] 06-04-2024 Albumin [Mass/Vol] 4.1 g/dL Normal 3.2-5.2 [facility] Comment on above: Order Comment: [facility] has implemented the eGFR calculation approach that does not have a coefficient for race that conforms to the NKF-ASN Task Force Recommendations. Performed By: #### L [id number] #### LAB [address] [address] Ismael Torre M.D. [id number] ALP [Catalytic activity/Vol] 84 U/L Normal 40-150 [facility] Comment on above: Order Comment: [facility] has implemented the eGFR calculation approach that does not have a coefficient for race that conforms to the NKF-ASN Task Force Recommendations. Performed By: #### L [id number] #### LAB [address] [address] Ismael Torre M.D. [id number] ALT [Catalytic activity/Vol] 20 U/L Normal 0-35 U/L [facility] Comment on above: Order Comment: [facility] has implemented the eGFR calculation approach that does not have a coefficient for race that conforms to the NKF-ASN Task Force Recommendations. Performed By: #### L [id number] #### LAB [address] [address] Ismael Torre M.D. [id number] Anion gap [Moles/Vol] 17 mmol/L Normal 10-20 [facility] Comment on above: Order Comment: [facility] has implemented the eGFR calculation approach that does not have a coefficient for race that conforms to the NKF-ASN Task Force Recommendations. Performed By: #### L [id number] #### LAB [address] [address] Ismael Torre M.D. [id number] AST [Catalytic activity/Vol] 43 U/L High 0-35 U/L [facility] Comment on above: Order Comment: [facility] has implemented the eGFR calculation approach that does not have a coefficient for race that conforms to the NKF-ASN Task Force Recommendations. Result Comment: Slig htly Hemolyzed Performed By: #### L [id number] #### MH LAB [address] [place], [place] [address] Ismael Torre M.D. [id number] Bilirubin [Mass/Vol] 0.3 mg/dL Normal 0.0-1.3 [facility] Comment on above: Order Comment: [facility] has implemented the eGFR calculation approach that does not have a coefficient for race that conforms to the NKF-ASN Task Force Recommendations. Performed By: #### L [id number] #### MH LAB [address] [address] Ismael Torre M.D. [id number] Calcium [Mass/Vol] 9.1 mg/dL Normal 8.4-10.2 [facility] Comment on above: Order Comment: [facility] has implemented the eGFR calculation approach that does not have a coefficient for race that conforms to the NKF-ASN Task Force Recommendations. Performed By: #### L [id number] #### LAB [address] [address] Ismael Torre M.D. [id number] Chloride [Moles/Vol] 108 mmol/L Normal 98-108 [facility] Comment on above: Order Comment: [facility] has implemented the eGFR calculation approach that does not have a coefficient for race that conforms to the NKF-ASN Task Force Recommendations. Performed By: #### L [id number] #### MH LAB [address] [address] Ismael Torre M.D. [id number] Creatinine [Mass/Vol] 1.45 mg/dL High 0.40-1.10 [facility] Comment on above: Order Comment: [facility] has implemented the eGFR calculation approach that does not have a coefficient for race that conforms to the NKF-ASN Task Force Recommendations. Performed By: #### L [id number] #### MH LAB [address] [id number] Ismael Torre M.D. [id number] EGFR 44 mL/min/1.73 m2 Low >=60 [facility] Comment on above: Order Comment: [facility] has implemented the eGFR calculation approach that does not have a coefficient for race that conforms to the NKF-ASN Task Force Recommendations. Result Comment: Frieda mated GFR was calculated using the 2020 CKD-EPI creatinine equation. Performed By: #### L [id number] #### MH LAB [address] [address] Ismael Torre M.D. [id number] Glucose [Mass/Vol] 125 mg/dL High 65-99 [facility] Comment on above: Order Comment: [facility] has implemented the eGFR calculation approach that does not have a coefficient for race that conforms to the NKF-ASN Task Force Recommendations. Performed By: #### L [id number] #### MH LAB [address] [address] Ismael Torre M.D. [id number] HCO3 (Bld) [Moles/Vol] 20 mmol/L Low 21-32 [facility] Comment on above: Order Comment: [facility] has implemented the eGFR calculation approach that does not have a coefficient for race that conforms to the NKF-ASN Task Force Recommendations. Performed By: #### L [id number] #### MH LAB [address] [address] Ismael Torre M.D. [id number] Potassium [Moles/Vol] 5.2 mmol/L High 3.5-5.1 [facility] Comment on above: Order Comment: [facility] has implemented the eGFR calculation approach that does not have a coefficient for race that conforms to the NKF-ASN Task Force Recommendations. Result Comment: Slig htly Hemolyzed Performed By: #### L [id number] #### MH LAB [address] [address] Ismael Torre M.D. [id number] Protein [Mass/Vol] 6.8 g/dL Normal 6.0-8.0 [facility] Comment on above: Order Comment: [facility] has implemented the eGFR calculation approach that does not have a coefficient for race that conforms to the NKF-ASN Task Force Recommendations. Performed By: #### L [id number] #### MH LAB [address] [place], [place] [address] Ismael Torre M.D. [id number] Sodium [Moles/Vol] 140 mmol/L Normal 135-145 [facility] Comment on above: Order Comment: [facility] has implemented the eGFR calculation approach that does not have a coefficient for race that conforms to the NKF-ASN Task Force Recommendations. Performed By: #### L [id number] #### MH LAB [address] [place] [address] Ismael Torre M.D. [id number] Urea nitrogen [Mass/Vol] 21 mg/dL Normal 8-25 [facility] Comment on above: Order Comment: [facility] has implemented the eGFR calculation approach that does not have a coefficient for race that conforms to the NKF-ASN Task Force Recommendations. Performed By: #### L [id number] #### MH LAB [address] [place] [address] Ismael Torre M.D. [id number] Urea nitrogen/Creatinine [Mass ratio] 14.5 mg/mg Normal 10.0-20.0 [facility] Comment on above: Order Comment: [facility] has implemented the eGFR calculation approach that does not have a coefficient for race that conforms to the NKF-ASN Task Force Recommendations. Performed By: #### L [id number] #### MH LAB [address] [place] [address] Ismael Torre M.D. [id number] CONSULTon 06-04-2024 CONSULT --- Attestation signed by Raúl Hudson MD at 06/05/2024 10:00 AM I agree with the Advanced Practice Provider note with the same day of service. The patient was seen and examined by me, the attending surgeon, on rounds on the date of service listed above. I have reviewed the Advanced Practice Provider note with the relevant labs, studies, and call center consultant notes. I have reviewed and agree [...] IV antibiotics Remainder of care as below [facility] SURGICAL HISTORY & PHYSICAL/CONSULTATION NOTE [...] History: Diagnosis Date Acquired thrombocytopenia ([facility]) [facility]/Lopez Shaikh Acute kidney injury (HCC) 05/22/2018 [facility]/Jonatan Chiu DO Anxiety Arm abrasion 06/19/2019 INFO GAINED FROM: /[facility] ED VISIT NOTE --- AC GAO MD Calcaneal spur of right foot 2016 Documented on x-ray CKD (chronic kidney disease) Congestive heart failure (CHF) ([facility]) [facility] Contusion, hip 06/19/2019 INFO GAINED FROM: /[facility] ED VISIT NOTE --- AC GAO MD Depression Epilepsy ([facility]) 08/06/2011 [facility]- Dr. Chopra Epilepsy ([facility]) 1994 Facet degeneration of lumbar region 10/14/2018 [facility]/Jono ALEXIS, Saulius Mild facet degenerative changes seen in the lower lumbar spine Fatty liver [facility]/Joe Mendieta MD Mild fibrofatty changes of the liver Fluid collection (edema) in the arms, legs, hands and feet 03/09/2018 Dr valentina Chopra Gastritis determined by endoscopy 12/29/2016 Dr. GonzalezPrpohk-Vnexftftx-wvjwub forated nonbleeding with biopsy 1 para 1 Hepatic steatosis [facility]/Heidy Jara MD Mild Hiatal hernia 12/29/[address] Lobo grade 4 Hypercholesterolemia [facility]/Jonatan Chiu DO Hypertension 2000 2000-present Insomnia [facility] Kidney stone [facility] Laceration of head 06/19/2019 INFO GAINED FROM: /[facility] ED VISIT NOTE --- AC GAO MD Lung nodule 12/15/2017 0.5 cm pleural based nodule in right middle lobe. Mild linear atelectasis Mitral valve prolapse [facility] Motor seizure ([facility]) 03/16/2019 INFO GAINED FROM: /[facility] ED VISIT --- BLAKE STEELE,CAREN Rectus diastasis [facility]/Heidy Jara MD Present with small wide necked perumbical ventral containing fat. Second degree burn of foot 04/23/2018 Right Foot - [facility] Sleep apnea Stroke (HCC) 2000 mild Tremor Past Surgical History: Procedure Laterality Date Conner pH capsule placement 02/01/2017 Dr. Lobo BREAST REDUCTION 2000 [facility]-nonperforating gastritis ESOPHAGEAL MANOMETRY 02/01/2017 HERNIA REPAIR 06/11/2017 Dr Richards INTRAUTERINE DEVICE INSERTION 02/15/2015 Dr. Pennie Meyers OBGYN Laparoscopic LINX sphincter augmentation (more content not included)... Normal [facility] CT ABDOMEN PELVIS WITH IV CO NTRAST [...] PM EDT Transcribed by: CAREY FRASER on [employer] Jun 04, 2024 11:04:11 PM EDT Finalized by: CAREY FRASER on WedJun 04, 2024 11:04:11 PM EDT [facility] Comment on above: Order Comment: Injur y/Trauma [...] ED at 11:02 p.m.. Workstation ID: [id number] [facility] EXAMINATION: CT ABDOMEN PELVIS WITH IV CONTRAST [...] unremarkable. No destructive osseous lesion is seen. [employer] Carey Sanderson MD - 06/04/2024 EXAMINATION: CT [...] ED at 11:02 p.m.. Workstation ID: [id number] [facility] Radiology Study observation (narrative) [facility] CT Abdomen and Pelvis W cont rast IVOrdered By: Carey Fraser on 06-04-2024 [facility] Work Phone: Comprehensive metabolic 2000 panelOrdered By: Anthony Mcrae on 06-04-2024 Albumin [Mass/Vol] 4.1 g/dL 3.2 - 5.2 g/dL [facility] ALP [Catalytic activity/Vol] 84 U/L 40 - 150 U/L [facility] ALT [Catalytic activity/Vol] 20 U/L 0-35 U/L [facility] Anion gap [Moles/Vol] 17 mmol/L 10 - 2 0 mmol/L [facility] AST [Catalytic activity/Vol] 43 U/L High 0-35 U/L [facility] Comment on above: Slightly Hemolyzed Bilirubin [Mass/Vol] 0.3 mg/dL 0.0 - 1 .3 mg/dL [facility] Calcium [Mass/Vol] 9.1 mg/dL 8.4 - 10. 2 mg/dL [facility] Chloride [Moles/Vol] 108 mmol/L 98 - 10 8 mmol/L [facility] Creatinine [Mass/Vol] 1.45 mg/dL High 0.40 - 1.10 mg/dL [facility] GFR/1.73 sq M.predicted CKD-EPI (S/P/Bld) [Vol rate/Area] 44 Low - PINF [facility] Comment on above: Estimated GFR was ca lculated using the 2020 CKD-EPI creatinine equation. Glucose [Mass/Vol] 125 mg/dL High 65 - 99 mg/dL [facility] HCO3 [Moles/Vol] 20 mmol/L Low 21 - 32 mmol/L [facility] Interpretation and review of laboratory results Abnormal [facility] Potassium [Moles/Vol] 5.2 mmol/L High 3.5 - 5.1 mmol/L [facility] Comment on above: Slightly Hemolyzed Protein [Mass/Vol] 6.8 g/dL 6.0 - 8.0 g/dL [facility] Sodium [Moles/Vol] 140 mmol/L 135 - 145 mmol/L [facility] Urea nitrogen [Mass/Vol] 21 mg/dL 8 - 25 mg/dL [facility] Urea nitrogen/Creatinine [Mass ratio] 14.5 mg/mg 10.0 - 20.0 [facility] has implemented the eGFR calculation approach that does not have a coefficient for race that conforms to the NKF-ASN Task Force Recommendations. [facility] ED Procedureon 06-04-2024 ED Procedure EKG 12-lead Date/Time: 06/04/2024 9:39 PM Performed by: Bang Tovar DO Authorized by: Bang Tovar DO Interpreted by ED attending physician Rhythm: sinus rhythm BPM: 70 Conduction: conduction normal ST Segments: ST segments normal T Waves: T waves normal Clinical impression: normal ECG AUTHENTICATED BY BANG TOVAR, ON 06/04/2024 23:36:02 Normal [facility] ED Prov Noteon 06-04-2024 ED Prov Note EMERGENCY MEDICINE PROVIDER NOTE WELCOME TO [facility] NAME: Reema Shah AGE: 48 y.o. SEX: female : 1975 ENCOUNTER DATE: 06/05/24 CSN: [id number] PCP: Jyoti Gupta MD History of Presenting [...] -- -- (more content not included)... Normal [facility] LIPASEon 06-04-2024 Lipase [Catalytic activity/Vol] 66 U/L High 15-65 [facility] Comment on above: Result Comment: Corie ewing Hemolyzed Performed By: #### L [id number] #### MH LAB [address] [place], [place] [address] Ismael Torre M.D. [id number] Lipaseon 06-04-2024 Lipase [Catalytic activity/Vol] 66 U/L High 15 - 65 U/L [facility] Comment on above: Slightly Hemolyzed Lipase [Catalytic activity/V ol]on 06-04-2024 Interpretation and review of laboratory results Abnormal [facility] MANUAL DIFFERENTIALon 2023 BASOPHILS - ABS (DIFF) 0.05 K/mcL Normal 0.00-0.30 [facility] Comment on above: Performed By: #### 4 [id number] #### LAB [address] [place] [address] Ismael Torre M.D. [id number] BASOPHILS - REL (DIFF) 0.8 % [facility] Comment on above: Performed By: #### 4 5417 #### LAB [address] [place] [address] Ismael Torre M.D. [id number] EOSINOPHILS - ABS (DIFF) 0.00 K/mcL Normal 0.00-0.50 [facility] Comment on above: Performed By: #### 4 5487 #### LAB [address] [place] [address] Ismael Torre M.D. [id number] EOSINOPHILS - REL (DIFF) 0.0 % [facility] Comment on above: Performed By: #### 4 7598 #### LAB [address] [place] [address] Ismael Torre M.D. [id number] LYMPHOCYTES - ABS (DIFF) 1.57 K/mcL Normal 0.90-4.00 [facility] Comment on above: Performed By: #### 4 0012 #### LAB [address] [place] [address] Ismael Torre M.D. [id number] LYMPHOCYTES - REL (DIFF) 26.1 % [facility] Comment on above: Performed By: #### 4 8687 #### LAB [address] [place] [address] Ismael Torre M.D. [id number] METAMYELOCYTES-REL (DIFF) 0.9 % [facility] Comment on above: Performed By: #### 4 5241 #### LAB [address] [place] [address] Ismael Torre M.D. [id number] MONOCYTES - ABS (DIFF) 0.37 K/mcL Normal 0.30-0.90 [facility] Comment on above: Performed By: #### 4 [id number] #### LAB [address] [place] [address] Ismael Torre M.D. [id number] MONOCYTES - REL (DIFF) 6.1 % Normal [facility] Comment on above: Performed By: #### 4 [id number] #### LAB [address] [place] [address] Ismael Torre M.D. [id number] NEUTROPHILS - ABS (DIFF) 4.03 K/mcL Normal 1.70-7.00 [facility] Comment on above: Performed By: #### 4 [id number] #### LAB [address] [place] [address] Ismael Torre M.D. [id number] NEUTROPHILS - REL (DIFF) 66.1 % Normal [facility] Comment on above: Performed By: #### 4 [id number] #### LAB [address] [place] [address] Ismael Torre M.D. [id number] MORPHOLOGYon 06-04-2024 PLATELET ESTIMATE Decreased Abnormal Normal [facility] Comment on above: Performed By: #### L [id number] #### LAB [address] [place] [address] Ismael Torre M.D. [id number] POLY SCAN Few Normal [facility] Comment on above: Performed By: #### L [id number] #### LAB [address] [place] [address] Ismael Torre M.D. [id number] RBC MORPH SCAN See Comment Normal [facility] Comment on above: Result Comment: RBC Indices confirmed with manual peripheral smear review. Performed By: #### L [id number] #### LAB [address] [place] [address] Ismael Torre M.D. [id number] Manual Differential panel (B ld)on 06-04-2024 Basophils (Bld) [#/Vol] 0.05 10*3/uL [facility] Basophils/100 WBC (Bld) 0.8 % [facility] Eosinophils (Bld) [#/Vol] 0.00 10*3/uL [facility] Eosinophils/100 WBC (Bld) 0.0 % [facility] Lymphocytes (Bld) [#/Vol] 1.57 10*3/uL [facility] Lymphocytes/100 WBC (Bld) 26.1 % [facility] Metamyelocytes/100 WBC (Bld) 0.9 % [facility] Monocytes (Bld) [#/Vol] 0.37 10*3/uL [facility] Monocytes/100 WBC (Bld) 6.1 % [facility] Neutrophils (Bld) [#/Vol] 4.03 10*3/uL [facility] Neutrophils/100 WBC (Bld) 66.1 % [facility] NT PRO BNPon 06-04-2024 Natriuretic peptide B (Bld) [Mass/Vol] 726 pg/mL High 0-300 [facility] Comment on above: Order Comment: Pride Study Cut-offsRule In:< /= 50 Years >450 pg/mL51 Years - 75 Years >900 pg/mL76 Years - 99 Years >1800 pg/mLRule Out:All patients <300 pg/mL Performed By: #### 4 [id number] #### MH [facility] [address] [place], [place] [address] Ismael Torre M.D. [id number] NT Pro BNPon 06-04-2024 Natriuretic peptide.B prohormone N-Terminal [Mass/Vol] 726 pg/mL High 0 - 300 pg/mL [facility] Natriuretic peptide.B prohor mamie N-Terminal [Mass/Vol]on 06-04-2024 Interpretation and review of laboratory results Abnormal [facility] Pride Study Cut-offs Rule In: < /= 50 Years >450 pg/mL 51 Years - 75 Years >900 pg/mL 76 Years - 99 Years >1800 pg/mL Rule Out: All patients <300 pg/mL [facility] No Panel Informationon 06-04 Interpretation and review of laboratory results Abnormal [facility] Extra Tube Hold for add-ons. [facility] Comment on above: Auto resulted. [facility] TROPONINon 06-04-2024 BASELINE TROPONIN T NG/L 8 ng/L Normal <=14 [facility] Comment on above: Performed By: #### 4 [id number] #### MH LAB [address] [place] [address] Ismael Torre M.D. [id number] TROPONIN T INTERPRETATION Normal Normal [facility] Comment on above: Performed By: #### 4 [id number] #### MH LAB [address] [place] [address] Ismael Torre M.D. [id number] Troponin x 2 (Now and Repeat in 3 hours)on 06-04-2024 Troponin T 8 ng/L NINF - 14 ng/L [facility] Troponin T Interpretation Normal [facility] URINALYSISon 06-04-2024 BACTERIA, URINE None Seen Normal None Seen [facility] Comment on above: Order Comment: Micro scopic examination is performed on all urinalysis samples and only positive findings are reported. The test for blood on the chemical analytic portion of urinalysis may also be positive due to hemoglobinuria and myoglobinuria and if red blood cells are present they are quantified by microscopic examination. Performed By: #### L [id number] #### MH LAB [address] [place] [address] Ismael Torre M.D. [id number] BILIRUBIN, URINE Negative Normal Negative [facility] Comment on above: Order Comment: Micro scopic examination is performed on all urinalysis samples and only positive findings are reported. The test for blood on the chemical analytic portion of urinalysis may also be positive due to hemoglobinuria and myoglobinuria and if red blood cells are present they are quantified by microscopic examination. Performed By: #### L [id number] #### MH LAB [address] [place] [address] Ismael Torre M.D. [id number] BLOOD, URINE Negative Normal Negative [facility] Comment on above: Order Comment: Micro scopic examination is performed on all urinalysis samples and only positive findings are reported. The test for blood on the chemical analytic portion of urinalysis may also be positive due to hemoglobinuria and myoglobinuria and if red blood cells are present they are quantified by microscopic examination. Performed By: #### L [id number] #### MH LAB [address] [place] [address] Ismael Torre M.D. [id number] Clarity (U) Clear Normal Clear [facility] Comment on above: Order Comment: Micro scopic examination is performed on all urinalysis samples and only positive findings are reported. The test for blood on the chemical analytic portion of urinalysis may also be positive due to hemoglobinuria and myoglobinuria and if red blood cells are present they are quantified by microscopic examination. Performed By: #### L [id number] #### [facility] LAB [address] [place] [address] Ismael Torre M.D. [id number] Color (U) Colorless Normal Colorless, Yellow [facility] Comment on above: Order Comment: Micro scopic examination is performed on all urinalysis samples and only positive findings are reported. The test for blood on the chemical analytic portion of urinalysis may also be positive due to hemoglobinuria and myoglobinuria and if red blood cells are present they are quantified by microscopic examination. Performed By: #### L [id number] #### MH LAB [address] [place] [address] Ismael Torre M.D. [id number] Glucose Ql (U) Negative Normal Negative [facility] Comment on above: Order Comment: Micro scopic examination is performed on all urinalysis samples and only positive findings are reported. The test for blood on the chemical analytic portion of urinalysis may also be positive due to hemoglobinuria and myoglobinuria and if red blood cells are present they are quantified by microscopic examination. Performed By: #### L [id number] #### MH LAB [address] [place] [address] Ismael Torre M.D. [id number] Ketones Ql (U) Negative Normal Negative [facility] Comment on above: Order Comment: Micro scopic examination is performed on all urinalysis samples and only positive findings are reported. The test for blood on the chemical analytic portion of urinalysis may also be positive due to hemoglobinuria and myoglobinuria and if red blood cells are present they are quantified by microscopic examination. Performed By: #### L [id number] #### MH LAB [address] [place] [address] Ismael Torre M.D. [id number] Leukocyte esterase Test strip Ql (U) Negative Normal Negative [facility] Comment on above: Order Comment: Micro scopic examination is performed on all urinalysis samples and only positive findings are reported. The test for blood on the chemical analytic portion of urinalysis may also be positive due to hemoglobinuria and myoglobinuria and if red blood cells are present they are quantified by microscopic examination. Performed By: #### L [id number] #### MH LAB [address] [place] [address] Ismael Torre M.D. [id number] MUCUS, URINE Rare Normal None Seen, Rare [facility] Comment on above: Order Comment: Micro scopic examination is performed on all urinalysis samples and only positive findings are reported. The test for blood on the chemical analytic portion of urinalysis may also be positive due to hemoglobinuria and myoglobinuria and if red blood cells are present they are quantified by microscopic examination. Performed By: #### L [id number] #### MH LAB [address] [place] [address] Ismael Torre M.D. [id number] NITRITE, URINE Negative Normal Negative [facility] Comment on above: Order Comment: Micro scopic examination is performed on all urinalysis samples and only positive findings are reported. The test for blood on the chemical analytic portion of urinalysis may also be positive due to hemoglobinuria and myoglobinuria and if red blood cells are present they are quantified by microscopic examination. Performed By: #### L [id number] #### MH LAB [address] [place] [address] Ismael Torre M.D. [id number] pH (U) 8.0 [pH] High 5.0-7.0 [facility] Comment on above: Order Comment: Micro scopic examination is performed on all urinalysis samples and only positive findings are reported. The test for blood on the chemical analytic portion of urinalysis may also be positive due to hemoglobinuria and myoglobinuria and if red blood cells are present they are quantified by microscopic examination. Performed By: #### L [id number] #### MH LAB [address] [place] [id number] Ismael Torre M.D. [id number] PROTEIN, URINE Negative Normal Negative [facility] Comment on above: Order Comment: Micro scopic examination is performed on all urinalysis samples and only positive findings are reported. The test for blood on the chemical analytic portion of urinalysis may also be positive due to hemoglobinuria and myoglobinuria and if red blood cells are present they are quantified by microscopic examination. Performed By: #### L [id number] #### MH LAB [address] [place] [address] Ismael Torre M.D. [id number] RBC, URINE < Normal 0-3 [facility] Comment on above: Order Comment: Micro scopic examination is performed on all urinalysis samples and only positive findings are reported. The test for blood on the chemical analytic portion of urinalysis may also be positive due to hemoglobinuria and myoglobinuria and if red blood cells are present they are quantified by microscopic examination. Performed By: #### L [id number] #### MH LAB [address] [place] [address] Ismael Torre M.D. [id number] Specific gravity (U) [Rel density] 1.028 High 1.005-1.025 [facility] Comment on above: Order Comment: Micro scopic examination is performed on all urinalysis samples and only positive findings are reported. The test for blood on the chemical analytic portion of urinalysis may also be positive due to hemoglobinuria and myoglobinuria and if red blood cells are present they are quantified by microscopic examination. Performed By: #### L [id number] #### MH LAB [address] [place] [address] Ismael Torre M.D. [id number] SQUAMOUS EPITHELIAL 2 /hpf Normal 0-4 [facility] Comment on above: Order Comment: Micro scopic examination is performed on all urinalysis samples and only positive findings are reported. The test for blood on the chemical analytic portion of urinalysis may also be positive due to hemoglobinuria and myoglobinuria and if red blood cells are present they are quantified by microscopic examination. Performed By: #### L [id number] #### MH LAB [address] [place], [place] [address] Ismael Torre M.D. [id number] UROBILINOGEN, URINE <2.0 Normal <2.0 [facility] Comment on above: Order Comment: Micro scopic examination is performed on all urinalysis samples and only positive findings are reported. The test for blood on the chemical analytic portion of urinalysis may also be positive due to hemoglobinuria and myoglobinuria and if red blood cells are present they are quantified by microscopic examination. Performed By: #### L [id number] #### MH LAB [address] [place], [place] [address] Ismael Torre M.D. [id number] WBC, URINE < Normal 0-5 [facility] Comment on above: Order Comment: Micro scopic examination is performed on all urinalysis samples and only positive findings are reported. The test for blood on the chemical analytic portion of urinalysis may also be positive due to hemoglobinuria and myoglobinuria and if red blood cells are present they are quantified by microscopic examination. Performed By: #### L [id number] #### MH LAB [address] [place], [place] [address] Ismael Torre M.D. [id number] UrinalysisOrdered By: Chang Cates on 06-04-2024 Bacteria Auto Ql (U) None Seen None Se en /[facility]pf [facility] Bil[facility] Ql (U) Negative [facility] th Clarity Refractometry automated (U) Clear Clear [facility] Color (U) Colorless Colorless, Yellow [facility] Epithelial cells.squamous Auto (Urine sed) [#/Area] 2 [facility] Glucose Auto test strip (U) [Mass/Vol] Negative Negative mg/dL [facility] Hemoglobin Auto test strip Ql (U) Negative Negative [facility] Interpretation and review of laboratory results Abnormal [facility] Ketones (U) [Mass/Vol] Negative Negative mg/dL [facility] Leukocyte esterase Auto test strip Ql (U) Negative Negative [facility] Mucus Auto (Urine sed) [#/Area] Rare None Seen, Rare /lpf [facility] Nitrite Auto test strip Ql (U) Negative Negative [facility] pH (U) 8.0 [pH] High 5.0 - 7.0 [facility] Protein (U) [Mass/Vol] Negative Negative mg/dL [facility] RBC Auto (Urine sed) [#/Area] [facility] Specific gravity (U) [Rel density] 1.028 High 1.005 - 1.025 [facility] Urobilinogen (U) [Mass/Vol] mg/dL NINF - 2.0 mg/dL [facility] WBC Auto (Urine sed) [#/Area] [facility] Microscopic examinat ion is performed on all urinalysis samples and only positive findings are reported. The test for blood on the chemical analytic portion of urinalysis may also be positive due to hemoglobinuria and myoglobinuria and if red blood cells are present they are quantified by microscopic examination. [facility] Office Visiton 05-31-2024 Follow-up visit [id number] DidiRosa Elena luReema J 1975 F Date Provider Department Center 05/31/2024 [facility] None Family History Problem Relation Age [...] Grandmother Paternal Grandfather Daughter Alive Level of Service:35690 [place] OFFICE/OUTPATIENT NEW MODERATE MDM 45 MINUTES Reason for Visit and Comments: Psoriasis [[id number]] - New Patient (TONI) [facility] Progress Noteon 05-31-2024 Progress Note DATE OF SERVICE: 05/31/2024 PATIENT NAME: Reema Shah : 1975 AGE: 48 y.o. CLINIC NUMBER: [id number] Visit type: New Chief Complaint Patient presents [...] detergent. Patient stated when she lived in [place] that is when the redness got worse and a provider in [place] gave her a solution to put on the areas. Patient has never seen a power press tender in the past. Are you , trying [...] on face, armpits, groin. Risks associated with intermediate topical steroid use reviewed in detail. Patient [...] PA-C 05/31/24 3:32 PM REFERRING MD: [id number] [facility] [address] [facility] BI MAMMO BILATERAL SCREENING TOMOSYNTHESISon 04-27-2024 BI MAMMO BILATERAL SCREENING TOMOSYNTHESIS Interpreted By: Bhupinder Bridges, STUDY: BI MAMMO BILATERAL SCREENING TOMOSYNTHESIS; 04/27/2024 3:15 pm ACCESSION NUMBER(S): [id number] ORDERING CLINICIAN: JEANIE AYALA INDICATION: Screening. COMPARISON: [...] Bhupinder Bridges 04/28/2024 9:57 AM Dictation workstation: [id number] [facility] Office Visiton 04-17-2024 Follow-up visit [id number] Rosa Elena Shahoragrace Diop 1975 F Date Provider Department Center 04/17/2024 [id number] CHOPRA [facility] [place] None Family History Problem Relation Age [...] Grandmother Paternal Grandfather Daughter Alive Level of Service:89510 SC OFFICE/OUTPATIENT ESTABLISHED HIGH MDM 40 MIN Reason for Visit and Comments: Follow-up [558109] Seizures [97] Normal [facility] Progress Noteon 04-17-2024 Progress Note [facility] [address] [facility] [address] Dept: [phone] Dept Loc: [phone] Valentina Chopra MD CHIEF COMPLAINT: Chief Complaint Patient presents with Follow-up Seizures HISTORY OF PRESENT ILLNESS: The patient is a 48 y.o. who returns for seizures and tremors. She reports that she was in [facility] in [place]. She reports that she ended up in [...] Anxiety, Chronic kidney disease, Epilepsy ([facility]), Essential hypertension, Gastro-esophageal reflux disease without esophagitis, Hypokalemia, Hypothyroidism, Obesity, Personal history of urinary (tract) infections, Psoriasis, Repeated falls, and Thrombocytopenia ([facility]). Past Surgical History: has a past surgical [...] # Dispenser Refill Daily Dose* Pymt Type [employer] 11/08/2023 11/08/2023 1 Lorazepam 1 Mg Tablet 180.[address] Tav [id number] Par (1165) 0 6.00 LME Medicaid [place] 10/29/2023 09/08/2023 1 Lorazepam 1 Mg Tablet 50.00 10 Me Tav [id number] Par (1165) 1 5.00 LME Medicaid [place] 09/29/2023 09/08/2023 1 Lorazepam 1 Mg Tablet 150.00 30 Me Tav [id number] P (more content not included)... Normal [facility] BASIC METABOLIC PANELon 06-2 Anion gap [Moles/Vol] 16 mmol/L Normal 10-20 [facility] Comment on above: Order Comment: [facility] has implemented the eGFR calculation approach that does not have a coefficient for race that conforms to the NKF-ASN Task Force Recommendations. Performed By: #### 4 [id number] #### MH LAB [address] [place], [place] [address] Ismael Torre M.D. [id number] Calcium [Mass/Vol] 9.2 mg/dL Normal 8.4-10.2 [facility] Comment on above: Order Comment: [facility] has implemented the eGFR calculation approach that does not have a coefficient for race that conforms to the NKF-ASN Task Force Recommendations. Performed By: #### 4 [id number] #### [facility] [address] [place], [place] [address] Ismael Torre M.D. [id number] Chloride [Moles/Vol] 103 mmol/L Normal 98-108 [facility] Comment on above: Order Comment: [facility] has implemented the eGFR calculation approach that does not have a coefficient for race that conforms to the NKF-ASN Task Force Recommendations. Performed By: #### 4 [id number] #### LAB [address] [place], [place] [address] Ismael Torre M.D. [id number] Creatinine [Mass/Vol] 1.43 mg/dL High 0.40-1.10 [facility] Comment on above: Order Comment: [facility] has implemented the eGFR calculation approach that does not have a coefficient for race that conforms to the NKF-ASN Task Force Recommendations. Performed By: #### 4 [id number] #### LAB [address] [place] [address] Ismael Torre M.D. [id number] EGFR 45 mL/min/1.73 m2 Low >=60 [facility] Comment on above: Order Comment: [facility] has implemented the eGFR calculation approach that does not have a coefficient for race that conforms to the NKF-ASN Task Force Recommendations. Result Comment: Frieda mated GFR was calculated using the 2020 CKD-EPI creatinine equation. Performed By: #### 4 [id number] #### LAB [address] [place] [address] Ismael Torre M.D. [id number] Glucose [Mass/Vol] 81 mg/dL Normal 65-99 [facility] Comment on above: Order Comment: [facility] has implemented the eGFR calculation approach that does not have a coefficient for race that conforms to the NKF-ASN Task Force Recommendations. Performed By: #### 4 [id number] #### LAB [address] [place] [address] Ismael Torre M.D. [id number] HCO3 (Bld) [Moles/Vol] 23 mmol/L Normal 21-32 [facility] Comment on above: Order Comment: [facility] has implemented the eGFR calculation approach that does not have a coefficient for race that conforms to the NKF-ASN Task Force Recommendations. Performed By: #### 4 [id number] #### LAB [address] [place] [address] Ismael Torre M.D. [id number] Potassium [Moles/Vol] 4.4 mmol/L Normal 3.5-5.1 [facility] Comment on above: Order Comment: [facility] has implemented the eGFR calculation approach that does not have a coefficient for race that conforms to the NKF-ASN Task Force Recommendations. Performed By: #### 4 [id number] #### LAB [address] [place], [place] [address] Ismael Torre M.D. [id number] Sodium [Moles/Vol] 138 mmol/L Normal 135-145 [facility] Comment on above: Order Comment: [facility] has implemented the eGFR calculation approach that does not have a coefficient for race that conforms to the NKF-ASN Task Force Recommendations. Performed By: #### 4 [id number] #### LAB [address] [place], [place] [address] Ismael Torre M.D. [id number] Urea nitrogen [Mass/Vol] 21 mg/dL Normal 8-25 [facility] Comment on above: Order Comment: [facility] has implemented the eGFR calculation approach that does not have a coefficient for race that conforms to the NKF-ASN Task Force Recommendations. Performed By: #### 4 [id number] #### LAB [address] [place], [place] [address] Ismael Torre M.D. [id number] Urea nitrogen/Creatinine [Mass ratio] 14.7 mg/mg Normal 10.0-20.0 [facility] Comment on above: Order Comment: [facility] has implemented the eGFR calculation approach that does not have a coefficient for race that conforms to the NKF-ASN Task Force Recommendations. Performed By: #### 4 [id number] #### MH LAB [address] [place], [place] [address] Ismael Torre M.D. [id number] CBC WITH AUTO DIFFERENTIALon 04-07-2024 AUTO NRBC 0.0 % Normal [facility] Comment on above: Performed By: #### L [id number] #### MH LAB [address] [place] [address] Ismael Torre M.D. [id number] AUTO NRBC ABS COUNT 0.00 K/mcL Normal 0.00-0.00 [facility] Comment on above: Performed By: #### L [id number] #### LAB [address] [place] [address] Ismael Torre M.D. [id number] BASOPHILS ABSOLUTE COUNT 0.02 K/mcL Normal 0.00-0.30 [facility] Comment on above: Performed By: #### L [id number] #### LAB [address] [place] [address] Ismael Torre M.D. [id number] Basophils/100 WBC (Bld) 0.3 % Normal [facility] Comment on above: Performed By: #### L [id number] #### LAB [address] [place] [address] Ismael Torre M.D. [id number] Eosinophils (Bld) [#/Vol] 0.07 10*3/uL Normal 0.00-0.50 [facility] Comment on above: Performed By: #### L [id number] #### LAB [address] [place] [address] Ismael Torre M.D. [id number] Eosinophils/100 WBC (Bld) 1.0 % Normal [facility] Comment on above: Performed By: #### L [id number] #### LAB [address] [place] [address] Ismael Torre M.D. [id number] Erythrocyte distribution width (RBC) [Ratio] 13.0 % Normal 11.6-14.8 [facility] Comment on above: Performed By: #### L [id number] #### LAB [address] [place] [address] Ismael Torre M.D. [id number] Hematocrit (Bld) [Volume fraction] 44.7 % Normal 36.0-46.0 [facility] Comment on above: Performed By: #### L [id number] #### LAB [address] [place] [address] Ismael Torre M.D. [id number] Hemoglobin (Bld) [Mass/Vol] 15.1 g/dL Normal 12.0-16.0 [facility] Comment on above: Performed By: #### L [id number] #### LAB [address] [place] [address] Ismael Torre M.D. [id number] IG ABSOLUTE 0.05 K/mcL Normal 0.00-0.30 [facility] Comment on above: Performed By: #### L [id number] #### LAB [address] [place] [address] Ismael Torre M.D. [id number] IG PERCENT 0.70 % Normal [facility] Comment on above: Result Comment: The IG parameter is the percentage of metamyelocytes, myelocytes and promyelocytes. An immature granulocyte count (IG) of 1% or more suggests the possibility of infection, an IG count of 3% is very likely related to an infection. Performed By: #### L [id number] #### LAB [address] [place] [address] Ismael Torre M.D. [id number] Lymphocytes (Bld) [#/Vol] 1.70 10*3/uL Normal 0.90-4.00 [facility] Comment on above: Performed By: #### L [id number] #### LAB [address] [place] [address] Ismael Torre M.D. [id number] Lymphocytes/100 WBC (Bld) 24.3 % [facility] Comment on above: Performed By: #### L [id number] #### LAB [address] [place] [address] Ismael Torre M.D. [id number] MCH (RBC) [Entitic mass] 30.6 pg Normal 26.0-34.0 [facility] Comment on above: Performed By: #### L [id number] #### LAB [address] [place] [address] Ismael Torre M.D. [id number] MCV (RBC) [Entitic vol] 90.7 fL Normal 80.0-100.0 [facility] Comment on above: Performed By: #### L [id number] #### LAB [address] [place] [address] Ismael Torre M.D. [id number] MEAN CORPUSCULAR HEMOGLOBIN CONC 33.8 g/dL Normal 31.0-37.0 [facility] Comment on above: Performed By: #### L [id number] #### LAB [address] [place] [address] Ismael Torre M.D. [id number] Monocytes (Bld) [#/Vol] 0.49 10*3/uL Normal 0.30-0.90 [facility] Comment on above: Performed By: #### L [id number] #### LAB [address] [place] [address] Ismael Torre M.D. [id number] Monocytes/100 WBC (Bld) 7.0 % Normal [facility] Comment on above: Performed By: #### L [id number] #### LAB [address] [place] [address] Ismael Torre M.D. [id number] NEUTROPHILS ABSOLUTE COUNT 4.68 K/mcL Normal 1.70-7.00 [facility] Comment on above: Performed By: #### L [id number] #### LAB [address] [place] [address] Ismael Torre M.D. [id number] Neutrophils/100 WBC (Bld) 66.7 % Normal [facility] Comment on above: Performed By: #### L [id number] #### LAB [address] [place] [address] sImael Torre M.D. [id number] Platelet mean volume (Bld) [Entitic vol] 10.2 fL Normal 9.4-12.4 [facility] Comment on above: Performed By: #### L [id number] #### LAB [address] [place] [address] Ismael Torre M.D. [id number] Platelets (Bld) [#/Vol] 132 10*3/uL Low 150-400 [facility] Comment on above: Performed By: #### L [id number] #### MH LAB [address] [place] [address] Ismael Torre M.D. [id number] RBC (Bld) [#/Vol] 4.93 10*6/uL Normal 4.00-5.20 [facility] Comment on above: Performed By: #### L [id number] #### MH LAB [address] [place] [address] Ismael Torre M.D. [id number] WBC (Bld) [#/Vol] 7.01 10*3/uL Normal 4.50-11.00 [facility] Comment on above: Performed By: #### L [id number] #### MH LAB [address] [place] [address] Ismael Torre M.D. [id number] ED Procedureon 04-07-2024 ED Procedure EKG 12-lead Date/Time: 04/07/2024 9:18 AM Performed by: Itzel Dumas MD Authorized by: Itzel Dumas MD Interpreted by ED attending physician Rhythm: sinus rhythm BPM: 93 QRS axis: normal Clinical impression: non-specific ECG Comments: Sinus arrhythmia AUTHENTICATED BY ITZEL DUMAS, ON 04/07/2024 09:19:19 Normal [facility] ED Prov Note[facility] 04-07-[facility]: NAME: Reema Shah 48 y.o. CSN: [id number] PCP: Jyoti Gupta MD History: Chief Complaint: Tremors HPI: The history was obtained from the patient, EMS, and skilled nursing. Reema is a 48 y.o. female who presents with a chief complaint of Tremors. The patient is a 48-year-old female with a history of intentional tremor, epilepsy, nonepileptic seizure activity, who was transferred from her skilled nursing with complaints of jerking motions today. The patient has a history of myoclonic jerking activity and was just hospitalized in mid February for the same complaint. She was evaluated by neurology, thought to have a possible functional component, and discharged back to the skilled nursing. Today the symptoms have not changed. There have been no reported injuries or trauma. The patient is able to speak and ask questions during her shaking episodes here in the emergency department. PMHx: Past Medical History: Diagnosis Date Acquired thrombocytopenia ([facility]) [facility] Acute kidney injury (HCC) 05/22/2018 [facility]/Jonatan Chiu DO Anxiety Arm abrasion 06/19/2019 INFO GAINED FROM: /[facility] ED VISIT NOTE --- AC GAO MD Calcaneal spur of right foot 2016 Documented on x-ray CKD (chronic kidney disease) Congestive heart failure (CHF) ([facility]) [facility] Contusion, hip 06/19/2019 INFO GAINED FROM: /[facility] ED VISIT NOTE --- AC GAO MD Depression Epilepsy ([facility]) 08/06/2011 [facility]- Dr. Chopra Epilepsy ([facility]) 1994 Facet degeneration of lumbar region 10/14/2018 [facility]/Jono ALEXIS, Saulius Mild facet degenerative changes seen in the lower lumbar spine Fatty liver [facility]/Joe Mendieta MD Mild fibrofatty changes of the liver Fluid collection (edema) in the arms, legs, hands and feet 03/09/2018 Dr valentina Chopra Gastritis determined by endoscopy 12/29/2016 Dr. GonzalezUceplz-Anemyqkib-wwwtkj forated nonbleeding with biopsy 1 para 1 Hepatic steatosis [facility]/Heidy Jara MD Mild Hiatal hernia 12/29/[address] Lobo grade 4 Hypercholesterolemia [facility]/Jonatan Chiu DO Hypertension 2000 2000-present Insomnia [facility] Kidney stone [facility] Laceration of head 06/19/2019 INFO GAINED FROM: /[facility] ED VISIT NOTE --- AC GAO MD Lung nodule 12/15/2017 0.5 cm pleural based nodule in right middle lobe. Mild linear atelectasis Mitral valve prolapse [facility] Motor seizure ([facility]) 03/16/2019 INFO GAINED FROM: /[facility] ED VISIT --- BLAKE STEELECAREN Rectus diastasis [facility]/Heidy Jara MD Present with small wide necked perumbical ventral containing fat. Second degree burn of foot 04/23/2018 Right Foot - [facility] Sleep apnea Stroke (HCC) 2000 mild Tremor PMSx: Past Surgical History: Procedure Laterality Date Conner pH capsule placement 02/01/2017 Dr. Lobo BREAST REDUCTION 2000 [facility] hiatal hernia-nonperforating gastritis ESOPHAGEAL MANOMETRY [...] Medications Medica (more content not included)... Normal [facility] MAGNESIUM LEVELon 04-07-2024 Magnesium [Mass/Vol] 1.8 mg/dL Normal 1.6-2.4 [facility] Comment on above: Performed By: #### L [id number] #### MH LAB [address] [place], [place] [address] Ismael Torre M.D. [id number] URINALYSISon 04-07-2024 BACTERIA, URINE None Seen Normal None Seen [facility] Comment on above: Order Comment: Micro scopic examination is performed on all urinalysis samples and only positive findings are reported. The test for blood on the chemical analytic portion of urinalysis may also be positive due to hemoglobinuria and myoglobinuria and if red blood cells are present they are quantified by microscopic examination. Performed By: #### L [id number] #### MH LAB [address] [place] [address] Ismael Torre M.D. [id number] BILIRUBIN, URINE Negative Normal Negative [facility] Comment on above: Order Comment: Micro scopic examination is performed on all urinalysis samples and only positive findings are reported. The test for blood on the chemical analytic portion of urinalysis may also be positive due to hemoglobinuria and myoglobinuria and if red blood cells are present they are quantified by microscopic examination. Performed By: #### L [id number] #### MH LAB [address] [place] [address] Ismael Torre M.D. [id number] BLOOD, URINE Negative Normal Negative [facility] Comment on above: Order Comment: Micro scopic examination is performed on all urinalysis samples and only positive findings are reported. The test for blood on the chemical analytic portion of urinalysis may also be positive due to hemoglobinuria and myoglobinuria and if red blood cells are present they are quantified by microscopic examination. Performed By: #### L [id number] #### MH [facility] [address] [place] [address] Ismael Torre M.D. [id number] Clarity (U) Clear Normal Clear [facility] Comment on above: Order Comment: Micro scopic examination is performed on all urinalysis samples and only positive findings are reported. The test for blood on the chemical analytic portion of urinalysis may also be positive due to hemoglobinuria and myoglobinuria and if red blood cells are present they are quantified by microscopic examination. Performed By: #### L [id number] #### MH LAB [address] [place] [id number] Ismael Torre M.D. [id number] Color (U) Yellow Normal Colorless, Yellow [facility] Comment on above: Order Comment: Micro scopic examination is performed on all urinalysis samples and only positive findings are reported. The test for blood on the chemical analytic portion of urinalysis may also be positive due to hemoglobinuria and myoglobinuria and if red blood cells are present they are quantified by microscopic examination. Performed By: #### L [id number] #### MH [facility] [address] [place] [address] Ismael Torre M.D. [id number] Glucose Ql (U) Negative Normal Negative [facility] Comment on above: Order Comment: Micro scopic examination is performed on all urinalysis samples and only positive findings are reported. The test for blood on the chemical analytic portion of urinalysis may also be positive due to hemoglobinuria and myoglobinuria and if red blood cells are present they are quantified by microscopic examination. Performed By: #### L [id number] #### MH [facility] [address] [place] [address] Ismael Torre M.D. [id number] Hyaline casts LM Ql (Urine sed) 0-2 Normal 0-2 [facility] Comment on above: Order Comment: Micro scopic examination is performed on all urinalysis samples and only positive findings are reported. The test for blood on the chemical analytic portion of urinalysis may also be positive due to hemoglobinuria and myoglobinuria and if red blood cells are present they are quantified by microscopic examination. Performed By: #### L [id number] #### [facility] [address] [place] [address] Ismael Torre M.D. [id number] Ketones Ql (U) Negative Normal Negative [facility] Comment on above: Order Comment: Micro scopic examination is performed on all urinalysis samples and only positive findings are reported. The test for blood on the chemical analytic portion of urinalysis may also be positive due to hemoglobinuria and myoglobinuria and if red blood cells are present they are quantified by microscopic examination. Performed By: #### L [id number] #### [facility] [address] [place], [place] [address] Ismael Torre M.D. [id number] Leukocyte esterase Test strip Ql (U) Small Abnormal Negative [facility] Comment on above: Order Comment: Micro scopic examination is performed on all urinalysis samples and only positive findings are reported. The test for blood on the chemical analytic portion of urinalysis may also be positive due to hemoglobinuria and myoglobinuria and if red blood cells are present they are quantified by microscopic examination. Performed By: #### L [id number] #### [facility] [address] [place], [place] [address] Ismael Torre M.D. [id number] MUCUS, URINE Rare Normal None Seen, Rare [facility] Comment on above: Order Comment: Micro scopic examination is performed on all urinalysis samples and only positive findings are reported. The test for blood on the chemical analytic portion of urinalysis may also be positive due to hemoglobinuria and myoglobinuria and if red blood cells are present they are quantified by microscopic examination. Performed By: #### L [id number] #### [facility] [address] [place], [place] [address] Ismael Torre M.D. [id number] NITRITE, URINE Negative Normal Negative [facility] Comment on above: Order Comment: Micro scopic examination is performed on all urinalysis samples and only positive findings are reported. The test for blood on the chemical analytic portion of urinalysis may also be positive due to hemoglobinuria and myoglobinuria and if red blood cells are present they are quantified by microscopic examination. Performed By: #### L [id number] #### [facility] [address] [place], [place] [address] Ismael Torre M.D. [id number] pH (U) 5.5 [pH] Normal 5.0-7.0 [facility] Comment on above: Order Comment: Micro scopic examination is performed on all urinalysis samples and only positive findings are reported. The test for blood on the chemical analytic portion of urinalysis may also be positive due to hemoglobinuria and myoglobinuria and if red blood cells are present they are quantified by microscopic examination. Performed By: #### L [id number] #### [facility] [address] [place] [id number] Ismael Torre M.D. [id number] PROTEIN, URINE Negative Normal Negative [facility] Comment on above: Order Comment: Micro scopic examination is performed on all urinalysis samples and only positive findings are reported. The test for blood on the chemical analytic portion of urinalysis may also be positive due to hemoglobinuria and myoglobinuria and if red blood cells are present they are quantified by microscopic examination. Performed By: #### L [id number] #### [facility] [address] [place] [address] Ismael Torre M.D. [id number] RBC LM.HPF (Urine sed) [#/Area] 1 /[HPF] Normal 0-3 [facility] Comment on above: Order Comment: Micro scopic examination is performed on all urinalysis samples and only positive findings are reported. The test for blood on the chemical analytic portion of urinalysis may also be positive due to hemoglobinuria and myoglobinuria and if red blood cells are present they are quantified by microscopic examination. Performed By: #### L [id number] #### [facility] [address] [place] [address] Ismael Torre M.D. [id number] Specific gravity (U) [Rel density] 1.022 Normal 1.005-1.025 [facility] Comment on above: Order Comment: Micro scopic examination is performed on all urinalysis samples and only positive findings are reported. The test for blood on the chemical analytic portion of urinalysis may also be positive due to hemoglobinuria and myoglobinuria and if red blood cells are present they are quantified by microscopic examination. Performed By: #### L [id number] #### [facility] [address] [place] [address] Ismael Torre M.D. [id number] SQUAMOUS EPITHELIAL 14 /hpf High 0-4 [facility] Comment on above: Order Comment: Micro scopic examination is performed on all urinalysis samples and only positive findings are reported. The test for blood on the chemical analytic portion of urinalysis may also be positive due to hemoglobinuria and myoglobinuria and if red blood cells are present they are quantified by microscopic examination. Performed By: #### L [id number] #### [facility] [address] [place], [place] [address] Ismael Torre M.D. [id number] UROBILINOGEN, URINE <2.0 Normal <2.0 [facility] Comment on above: Order Comment: Micro scopic examination is performed on all urinalysis samples and only positive findings are reported. The test for blood on the chemical analytic portion of urinalysis may also be positive due to hemoglobinuria and myoglobinuria and if red blood cells are present they are quantified by microscopic examination. Performed By: #### L [id number] #### [facility] [address] [place], [place] [address] Ismael Torre M.D. [id number] WBC LM.HPF (Urine sed) [#/Area] 1 /[HPF] Normal 0-5 [facility] Comment on above: Order Comment: Micro scopic examination is performed on all urinalysis samples and only positive findings are reported. The test for blood on the chemical analytic portion of urinalysis may also be positive due to hemoglobinuria and myoglobinuria and if red blood cells are present they are quantified by microscopic examination. Performed By: #### L [id number] #### [facility] [address] [place], [place] [address] Ismael Torre M.D. [id number] URINE AEROBIC CULTUREon 03-19 URINE AEROBIC CULTURE URINE CULTURE < 10,000 CFU/mL of normal urogenital microbiota Normal [facility] Comment on above: Performed By: #### 4 5060 #### [facility] [address] [place], [place] [address] Ismael Torre M.D. [id number] Office Visiton 04-04-2024 Follow-up visit [id number] Reema Shah 1975 F Date Provider Department Center 04/04/2024 MEJIA VAZQUEZ [facility] F None Family History Problem Relation [...] Grandmother Paternal Grandfather Daughter Alive Level of Service:42104 SC OFFICE/OUTPATIENT ESTABLISHED LOW MDM 20 MIN Reason for Visit and Comments: Follow-up [608642] - 3 month follow-up Normal [facility] PATINSon 04-04-2024 PATINS Call [phone] to schedule with seizure specialist Dr. Hernandez. Normal [facility] Progress Noteon 04-04-2024 Progress Note [facility] [address] [place] [id number] Dept: [phone] Dept Loc: [phone] [facility] Consultation [...] shoulder xray normal. Patient was admitted to [facility] 03/04/24 with concern for seizure episodes while in ED for chest pain. Home antiepileptic medication levels were checked and Keppra was increased. 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 Lives in assisted living facility ([facility]). Moving to [facility] next month. Workup: CT Brain, CT [...] MG table (more content not included)... Normal [facility] AMMONIAon 03-05-2024 AMMONIA 30 micromol/L Normal 12- [facility] Comment on above: Performed By: #### 4 5060 #### [facility] [address] [place] [address] Ismael Torre M.D. [id number] CBC WITH AUTO DIFFERENTIALon 03-05-2024 AUTO NRBC 0.0 % Normal [facility] Comment on above: Performed By: #### L [id number] #### [facility] [address] [place], [place] [address] Ismael Torre M.D. [id number] AUTO NRBC ABS COUNT 0.00 K/mcL Normal 0.00-0.00 [facility] Comment on above: Performed By: #### L [id number] #### [facility] [address] [place], [place] [address] Ismael Torre M.D. [id number] Erythrocyte distribution width (RBC) [Ratio] 12.6 % Normal 11.6-14.8 [facility] Comment on above: Performed By: #### L [id number] #### LAB [address] [place] [address] Ismael Torre M.D. [id number] Hematocrit (Bld) [Volume fraction] 36.4 % Normal 36.0-46.0 [facility] Comment on above: Performed By: #### L [id number] #### [facility] [address] [place] [address] Ismael Torre M.D. [id number] Hemoglobin (Bld) [Mass/Vol] 12.4 g/dL Normal 12.0-16.0 [facility] Comment on above: Performed By: #### L [id number] #### LAB [address] [place] [address] Ismael Torre M.D. [id number] MCH (RBC) [Entitic mass] 31.4 pg Normal 26.0-34.0 [facility] Comment on above: Performed By: #### L [id number] #### [facility] [address] [place] [address] Ismael Torre M.D. [id number] MCV (RBC) [Entitic vol] 92.2 fL Normal 80.0-100.0 [facility] Comment on above: Performed By: #### L [id number] #### LAB [address] [place] [address] Ismael Torre M.D. [id number] MEAN CORPUSCULAR HEMOGLOBIN CONC 34.1 g/dL Normal 31.0-37.0 [facility] Comment on above: Performed By: #### L [id number] #### LAB [address] [place] [address] Ismael Torre M.D. [id number] Platelet mean volume (Bld) [Entitic vol] 10.5 fL Normal 9.4-12.4 [facility] Comment on above: Performed By: #### L [id number] #### [facility] [address] [place], [place] [address] Ismael Torre M.D. [id number] Platelets (Bld) [#/Vol] 90 10*3/uL Low 150-400 [facility] Comment on above: Performed By: #### L [id number] #### [facility] [address] [place], [place] [address] Ismael Torre M.D. [id number] RBC (Bld) [#/Vol] 3.95 10*6/uL Low 4.00-5.20 [facility] Comment on above: Performed By: #### L [id number] #### [facility] [address] [place] [id number] Ismael Torre M.D. [id number] WBC (Bld) [#/Vol] 5.16 10*3/uL Normal 4.50-11.00 [facility] Comment on above: Performed By: #### L [id number] #### [facility] [address] [place] [address] Ismael Torre M.D. [id number] CONSULTon 03-05-2024 CONSULT Neurology Inpatient Consult [facility] Date of Service: 03/05/24 Admit Date: 03/04/2024 Service Type: New Patient Consultation Patient: Reema Shah Date of : 1975 (48 y.o.) Referring Provider: Refer to consult order in electronic medical record Assessment ASSESSMENT: Reema Shah is a 48 y.o. female who presented to [facility] on 03/04/2024 with jerking movements Patient with [...] reports having a prior EMU stay in [place] a few years ago, but I do not see any sign of that in the records from [facility], , or [facility], which are the only places I know of with EMU capacity in the [place] area. She says it characterized her seizures [...] while here. Marzena Gresham MD Staff Neurologist [facility] [address] [id number] [address] Clinic 03/05/24 Parts of this note may have been dictated using Mammotome, a speech-recognition software. Syntax errors and sound-alike [...] GTC activity. Follows with Dr. Gillette in [place]. Has been using Depakote and Keppra for [...] got an EMU stay years ago in [place] and it described her seizures as grand mal. There is a chart history of pseudoseizures but I don't have an (more content not included)... Normal [facility] HEMOGLOBIN A1Con 03-05-2024 Glucose [Mass/Vol] 103 mg/dL Normal 74-114 [facility] Comment on above: Performed By: #### L [id number] #### [facility] [address] [place] [address] Ismael Torre M.D. [id number] HbA1c (Bld) [Mass fraction] 5.2 % Normal 4.2-5.6 [facility] Comment on above: Performed By: #### L [id number] #### LAB [address] [place] [address] Ismael Torre M.D. [id number] MAGNESIUM LEVELon 03-05-2024 Magnesium [Mass/Vol] 1.8 mg/dL Normal 1.6-2.4 [facility] Comment on above: Performed By: #### L [id number] #### LAB [address] [place] [address] Ismael Torre M.D. [id number] MANUAL DIFFERENTIALon 2023 BASOPHILS - ABS (DIFF) 0.00 K/mcL Normal 0.00-0.30 [facility] Comment on above: Performed By: #### 4 5456 #### LAB [address] [place] [address] Ismael Torre M.D. [id number] BASOPHILS - REL (DIFF) 0.0 % [facility] Comment on above: Performed By: #### 4 5456 #### LAB [address] [place] [address] Ismael Torre M.D. [id number] EOSINOPHILS - ABS (DIFF) 0.00 K/mcL Normal 0.00-0.50 [facility] Comment on above: Performed By: #### 4 5456 #### LAB [address] [place] [address] Ismael Torre M.D. [id number] EOSINOPHILS - REL (DIFF) 0.0 % [facility] Comment on above: Performed By: #### 4 5456 #### LAB [address] [place] [address] Ismael Torre M.D. [id number] LYMPHOCYTE ATYPICAL - REL (DIFF) 1.7 % [facility] Comment on above: Performed By: #### 4 5456 #### LAB [address] [place] [address] Ismael Torre M.D. [id number] LYMPHOCYTES - ABS (DIFF) 1.47 K/mcL Normal 0.90-4.00 [facility] Comment on above: Performed By: #### 4 5426 #### LAB [address] [place] [address] Ismael Torre M.D. [id number] LYMPHOCYTES - REL (DIFF) 26.7 % Normal [facility] Comment on above: Performed By: #### 4 6056 #### LAB [address] [place] [address] Ismael Torre M.D. [id number] METAMYELOCYTES-REL (DIFF) 0.9 % Normal [facility] Comment on above: Performed By: #### 4 8256 #### LAB [address] [place] [address] Ismael Torre M.D. [id number] MONOCYTES - ABS (DIFF) 0.49 K/mcL Normal 0.30-0.90 [facility] Comment on above: Performed By: #### 4 2260 #### LAB [address] [place] [address] Ismael Torre M.D. [id number] MONOCYTES - REL (DIFF) 9.5 % Normal [facility] Comment on above: Performed By: #### 4 0498 #### LAB [address] [place] [address] Ismael Torre M.D. [id number] NEUTROPHILS - ABS (DIFF) 3.20 K/mcL Normal 1.70-7.00 [facility] Comment on above: Performed By: #### 4 0156 #### LAB [address] [place] [address] Ismael Torre M.D. [id number] NEUTROPHILS - REL (DIFF) 61.2 % [facility] Comment on above: Performed By: #### 4 7148 #### LAB [address] [place] [address] Ismael Torre M.D. [id number] NUCLEATED RBC ABSOLUTE COUNT 0.05 K/mcL High 0.00-0.00 [facility] Comment on above: Performed By: #### 4 7305 #### [facility] [address] [place] [id number] Ismael Torre M.D. [id number] NUCLEATED RED BLOOD CELLS 1 % Normal [facility] Comment on above: Performed By: #### 4 5456 #### [facility] [address] [place], [place] [address] Ismael Torre M.D. [id number] MORPHOLOGYon 03-05-2024 OVAL SCAN Few Normal [facility] Comment on above: Performed By: #### L [id number] #### [facility] [address] [place] [address] Ismael Torre M.D. [id number] POLY SCAN Moderate Normal [facility] Comment on above: Performed By: #### L [id number] #### [facility] [address] [place] [id number] Ismael Torre M.D. [id number] RBC MORPH SCAN See Comment Normal [facility] Comment on above: Result Comment: RBC Indices confirmed with manual peripheral smear review. Performed By: #### L [id number] #### [facility] [address] [place] [address] Ismael Torre M.D. [id number] PT/INRon 03-05-2024 INR Coag (PPP) [Relative time] 1.1 {INR} Normal 0.8-1.1 [facility] Comment on above: Order Comment: Rigoberto teran the induction phase of oral anticoagulation, the INR may not reflect the anticoagulation status of the patient. Therapeutic ranges for INR's are:Most clinical situations: INR 2.0-3.0Mechanical Prosthetic Valve: INR 2.5-3.5Critical: INR >5.0 Performed By: #### L [id number] #### [facility] [address] [place] [id number] Ismael Torre M.D. [id number] PT Coag (PPP) [Time] 13.8 s Normal 11.8-14.3 [facility] Comment on above: Order Comment: Rigoberto teran the induction phase of oral anticoagulation, the INR may not reflect the anticoagulation status of the patient. Therapeutic ranges for INR's are:Most clinical situations: INR 2.0-3.0Mechanical Prosthetic Valve: INR 2.5-3.5Critical: INR >5.0 Performed By: #### L [id number] #### LAB [address] [place], [place] [address] Ismael Torre M.D. [id number] RENAL FUNCTION PANELon 03-05 Albumin [Mass/Vol] 3.6 g/dL Normal 3.2-5.2 [facility] Comment on above: Order Comment: [facility] has implemented the eGFR calculation approach that does not have a coefficient for race that conforms to the NKF-ASN Task Force Recommendations. Performed By: #### 4 6449 #### LAB [address] [place], [place] [address] Ismael Torre M.D. [id number] Anion gap [Moles/Vol] 15 mmol/L Normal 10-20 [facility] Comment on above: Order Comment: [facility] has implemented the eGFR calculation approach that does not have a coefficient for race that conforms to the NKF-ASN Task Force Recommendations. Performed By: #### 4 6449 #### LAB [address] [place], [place] [address] Ismael Torre M.D. [id number] Calcium [Mass/Vol] 8.8 mg/dL Normal 8.4-10.2 [facility] Comment on above: Order Comment: [facility] has implemented the eGFR calculation approach that does not have a coefficient for race that conforms to the NKF-ASN Task Force Recommendations. Performed By: #### 4 6449 #### [facility] [address] [place], [place] [address] Ismael Torre M.D. [id number] Chloride [Moles/Vol] 104 mmol/L Normal 98-108 [facility] Comment on above: Order Comment: [facility] has implemented the eGFR calculation approach that does not have a coefficient for race that conforms to the NKF-ASN Task Force Recommendations. Performed By: #### 4 6449 #### LAB [address] [place] [address] Ismael Torer M.D. [id number] Creatinine [Mass/Vol] 1.15 mg/dL High 0.40-1.10 [facility] Comment on above: Order Comment: [facility] has implemented the eGFR calculation approach that does not have a coefficient for race that conforms to the NKF-ASN Task Force Recommendations. Performed By: #### 4 6449 #### LAB [address] [place] [address] Ismael Torre M.D. [id number] EGFR 58 mL/min/1.73 m2 Low >=60 [facility] Comment on above: Order Comment: [facility] has implemented the eGFR calculation approach that does not have a coefficient for race that conforms to the NKF-ASN Task Force Recommendations. Result Comment: Frieda mated GFR was calculated using the 2020 CKD-EPI creatinine equation. Performed By: #### 4 6449 #### LAB [address] [place] [address] Ismael Torre M.D. [id number] Glucose [Mass/Vol] 90 mg/dL Normal 65-99 [facility] Comment on above: Order Comment: [facility] has implemented the eGFR calculation approach that does not have a coefficient for race that conforms to the NKF-ASN Task Force Recommendations. Performed By: #### 4 6449 #### LAB [address] [place] [address] Ismael Torre M.D. [id number] HCO3 (Bld) [Moles/Vol] 25 mmol/L Normal 21-32 [facility] Comment on above: Order Comment: [facility] has implemented the eGFR calculation approach that does not have a coefficient for race that conforms to the NKF-ASN Task Force Recommendations. Performed By: #### 4 6449 #### LAB [address] [place] [address] Ismael Torre M.D. [id number] Phosphate [Mass/Vol] 2.7 mg/dL Normal 2.7-4.5 [facility] Comment on above: Order Comment: [facility] has implemented the eGFR calculation approach that does not have a coefficient for race that conforms to the NKF-ASN Task Force Recommendations. Performed By: #### 4 6449 #### LAB [address] [place] [address] Ismael Torre M.D. [id number] Potassium [Moles/Vol] 3.7 mmol/L Normal 3.5-5.1 [facility] Comment on above: Order Comment: [facility] has implemented the eGFR calculation approach that does not have a coefficient for race that conforms to the NKF-ASN Task Force Recommendations. Performed By: #### 4 6449 #### LAB [address] [place] [address] Ismael Torre M.D. [id number] Sodium [Moles/Vol] 140 mmol/L Normal 135-145 [facility] Comment on above: Order Comment: [facility] has implemented the eGFR calculation approach that does not have a coefficient for race that conforms to the NKF-ASN Task Force Recommendations. Performed By: #### 4 6449 #### LAB [address] [place] [address] Ismael Torre M.D. [id number] Urea nitrogen [Mass/Vol] 23 mg/dL Normal 8-25 [facility] Comment on above: Order Comment: [facility] has implemented the eGFR calculation approach that does not have a coefficient for race that conforms to the NKF-ASN Task Force Recommendations. Performed By: #### 4 6449 #### LAB [address] [place] [address] Ismael Torre M.D. [id number] Urea nitrogen/Creatinine [Mass ratio] 20.0 mg/mg Normal 10.0-20.0 [facility] Comment on above: Order Comment: [facility] has implemented the eGFR calculation approach that does not have a coefficient for race that conforms to the NKF-ASN Task Force Recommendations. Performed By: #### 4 6449 #### LAB [address] [place] [address] Ismael Torre M.D. [id number] TSHon 03-05-2024 TSH Qn 3.38 m[IU]/L Normal 0.27-4.20 [facility] Comment on above: Performed By: #### L [id number] #### LAB [address] [place] [address] Ismael Torre M.D. [id number] ALCOHOL, MEDICALon ALCOHOL MEDICAL < Normal <10.0 [facility] Comment on above: Result Comment: Alco hol cutoff: <10.00 mg/dL = None Detected Performed By: #### L [id number] #### LAB [address] [place] [address] Ismael Torre M.D. [id number] CBC WITH AUTO DIFFERENTIALon 03-04-2024 AUTO NRBC 0.0 % [facility] Comment on above: Performed By: #### L [id number] #### LAB [address] [place] [address] Ismael Torre M.D. [id number] AUTO NRBC ABS COUNT 0.00 K/mcL Normal 0.00-0.00 [facility] Comment on above: Performed By: #### L [id number] #### LAB [address] [place] [address] Ismael Torre M.D. [id number] BASOPHILS ABSOLUTE COUNT 0.02 K/mcL Normal 0.00-0.30 [facility] Comment on above: Performed By: #### L [id number] #### LAB [address] [place] [address] Ismael Torre M.D. [id number] Basophils/100 WBC (Bld) 0.3 % Normal [facility] Comment on above: Performed By: #### L [id number] #### LAB [address] [place] [address] Ismael Torre M.D. [id number] Eosinophils (Bld) [#/Vol] 0.06 10*3/uL Normal 0.00-0.50 [facility] Comment on above: Performed By: #### L [id number] #### LAB [address] [place] [address] Ismael Torre M.D. [id number] Eosinophils/100 WBC (Bld) 0.9 % Normal [facility] Comment on above: Performed By: #### L [id number] #### LAB [address] [place] [address] Ismael Torre M.D. [id number] Erythrocyte distribution width (RBC) [Ratio] 12.6 % Normal 11.6-14.8 [facility] Comment on above: Performed By: #### L [id number] #### LAB [address] [place] [address] Ismael Torre M.D. [id number] Hematocrit (Bld) [Volume fraction] 42.9 % Normal 36.0-46.0 [facility] Comment on above: Performed By: #### L [id number] #### LAB [address] [place] [address] Ismael Torre M.D. [id number] Hemoglobin (Bld) [Mass/Vol] 14.6 g/dL Normal 12.0-16.0 [facility] Comment on above: Performed By: #### L [id number] #### LAB [address] [place] [address] Ismael Torre M.D. [id number] IG ABSOLUTE 0.06 K/mcL Normal 0.00-0.30 [facility] Comment on above: Performed By: #### L [id number] #### LAB [address] [place] [address] Ismael Torre M.D. [id number] IG PERCENT 0.90 % Normal [facility] Comment on above: Result Comment: The IG parameter is the percentage of metamyelocytes, myelocytes and promyelocytes. An immature granulocyte count (IG) of 1% or more suggests the possibility of infection, an IG count of 3% is very likely related to an infection. Performed By: #### L [id number] #### LAB [address] [place] [address] Ismael Torre M.D. [id number] Lymphocytes (Bld) [#/Vol] 1.60 10*3/uL Normal 0.90-4.00 [facility] Comment on above: Performed By: #### L [id number] #### LAB [address] [place] [address] Ismael Torre M.D. [id number] Lymphocytes/100 WBC (Bld) 23.8 % Normal [facility] Comment on above: Performed By: #### L [id number] #### LAB [address] [place] [address] Ismael Torre M.D. [id number] MCH (RBC) [Entitic mass] 30.7 pg Normal 26.0-34.0 [facility] Comment on above: Performed By: #### L [id number] #### LAB [address] [place] [address] Ismael Torre M.D. [id number] MCV (RBC) [Entitic vol] 90.3 fL Normal 80.0-100.0 [facility] Comment on above: Performed By: #### L [id number] #### LAB [address] [place] [address] Ismael Torre M.D. [id number] MEAN CORPUSCULAR HEMOGLOBIN CONC 34.0 g/dL Normal 31.0-37.0 [facility] Comment on above: Performed By: #### L [id number] #### LAB [address] [place] [address] Isamel Torre M.D. [id number] Monocytes (Bld) [#/Vol] 0.46 10*3/uL Normal 0.30-0.90 [facility] Comment on above: Performed By: #### L [id number] #### LAB [address] [place] [address] Ismael Torre M.D. [id number] Monocytes/100 WBC (Bld) 6.8 % Normal [facility] Comment on above: Performed By: #### L [id number] #### LAB [address] [place] [address] Ismael Torre M.D. [id number] NEUTROPHILS ABSOLUTE COUNT 4.52 K/mcL Normal 1.70-7.00 [facility] Comment on above: Performed By: #### L [id number] #### LAB [address] [place] [address] Ismael Torre M.D. [id number] Neutrophils/100 WBC (Bld) 67.3 % Normal [facility] Comment on above: Performed By: #### L [id number] #### [facility] [address] [place] [address] Ismael Torre M.D. [id number] Platelet mean volume (Bld) [Entitic vol] 10.8 fL Normal 9.4-12.4 [facility] Comment on above: Performed By: #### L [id number] #### LAB [address] [place] [address] Ismael Torre M.D. [id number] Platelets (Bld) [#/Vol] 127 10*3/uL Low 150-400 [facility] Comment on above: Performed By: #### L [id number] #### [facility] [address] [place] [address] Ismael Torre M.D. [id number] RBC (Bld) [#/Vol] 4.75 10*6/uL Normal 4.00-5.20 [facility] Comment on above: Performed By: #### L [id number] #### [facility] [address] [place] [address] Ismael Torre M.D. [id number] WBC (Bld) [#/Vol] 6.72 10*3/uL Normal 4.50-11.00 [facility] Comment on above: Performed By: #### L [id number] #### [facility] [address] [place] [address] Ismael Torre M.D. [id number] COMPREHENSIVE METABOLIC PANE [facility] 03-04-2024 Albumin [Mass/Vol] 4.4 g/dL Normal 3.2-5.2 [facility] Comment on above: Order Comment: [facility] has implemented the eGFR calculation approach that does not have a coefficient for race that conforms to the NKF-ASN Task Force Recommendations. Performed By: #### L [id number] #### [facility] [address] [place] [address] Ismael Torre M.D. [id number] ALP [Catalytic activity/Vol] 102 U/L Normal 40-150 [facility] Comment on above: Order Comment: [facility] has implemented the eGFR calculation approach that does not have a coefficient for race that conforms to the NKF-ASN Task Force Recommendations. Performed By: #### L [id number] #### [facility] [address] [place] [address] Ismael Torre M.D. [id number] ALT [Catalytic activity/Vol] 29 U/L Normal 0-35 U/L [facility] Comment on above: Order Comment: [facility] has implemented the eGFR calculation approach that does not have a coefficient for race that conforms to the NKF-ASN Task Force Recommendations. Performed By: #### L [id number] #### LAB [address] [place] [address] Ismael Torre M.D. [id number] Anion gap [Moles/Vol] 17 mmol/L Normal 10-20 [facility] Comment on above: Order Comment: [facility] has implemented the eGFR calculation approach that does not have a coefficient for race that conforms to the NKF-ASN Task Force Recommendations. Performed By: #### L [id number] #### [facility] [address] [place] [address] Ismael Torre M.D. [id number] AST [Catalytic activity/Vol] 43 U/L High 0-35 U/L [facility] Comment on above: Order Comment: [facility] has implemented the eGFR calculation approach that does not have a coefficient for race that conforms to the NKF-ASN Task Force Recommendations. Performed By: #### L [id number] #### [facility] [address] [place] [address] Ismael Torre M.D. [id number] Bilirubin [Mass/Vol] 0.2 mg/dL Normal 0.0-1.3 [facility] Comment on above: Order Comment: [facility] has implemented the eGFR calculation approach that does not have a coefficient for race that conforms to the NKF-ASN Task Force Recommendations. Performed By: #### L [id number] #### [facility] [address] [place] [address] Ismael Torre M.D. [id number] Calcium [Mass/Vol] 9.8 mg/dL Normal 8.4-10.2 [facility] Comment on above: Order Comment: [facility] has implemented the eGFR calculation approach that does not have a coefficient for race that conforms to the NKF-ASN Task Force Recommendations. Performed By: #### L [id number] #### [facility] [address] [address] Ismael Torre M.D. [id number] Chloride [Moles/Vol] 104 mmol/L Normal 98-108 [facility] Comment on above: Order Comment: [facility] has implemented the eGFR calculation approach that does not have a coefficient for race that conforms to the NKF-ASN Task Force Recommendations. Performed By: #### L [id number] #### [facility] [address] [address] Ismael Torre M.D. [id number] Creatinine [Mass/Vol] 1.52 mg/dL High 0.40-1.10 [facility] Comment on above: Order Comment: [facility] has implemented the eGFR calculation approach that does not have a coefficient for race that conforms to the NKF-ASN Task Force Recommendations. Performed By: #### L [id number] #### [facility] [address] [address] Ismael Torre M.D. [id number] EGFR 42 mL/min/1.73 m2 Low >=60 [facility] Comment on above: Order Comment: [facility] has implemented the eGFR calculation approach that does not have a coefficient for race that conforms to the NKF-ASN Task Force Recommendations. Result Comment: Frieda mated GFR was calculated using the 2020 CKD-EPI creatinine equation. Performed By: #### L [id number] #### [facility] [address] [address] Ismael Torre M.D. [id number] Glucose [Mass/Vol] 114 mg/dL High 65-99 [facility] Comment on above: Order Comment: [facility] has implemented the eGFR calculation approach that does not have a coefficient for race that conforms to the NKF-ASN Task Force Recommendations. Performed By: #### L [id number] #### [facility] [address] [address] Ismael Torre M.D. [id number] HCO3 (Bld) [Moles/Vol] 22 mmol/L Normal 21-32 [facility] Comment on above: Order Comment: [facility] has implemented the eGFR calculation approach that does not have a coefficient for race that conforms to the NKF-ASN Task Force Recommendations. Performed By: #### L [id number] #### [facility] [address] [address] Ismael Torre M.D. [id number] Potassium [Moles/Vol] 5.0 mmol/L Normal 3.5-5.1 [facility] Comment on above: Order Comment: [facility] has implemented the eGFR calculation approach that does not have a coefficient for race that conforms to the NKF-ASN Task Force Recommendations. Performed By: #### L [id number] #### [facility] [address] [address] Ismael Torre M.D. [id number] Protein [Mass/Vol] 7.0 g/dL Normal 6.0-8.0 [facility] Comment on above: Order Comment: [facility] has implemented the eGFR calculation approach that does not have a coefficient for race that conforms to the NKF-ASN Task Force Recommendations. Performed By: #### L [id number] #### [facility] [address] [id number] Ismael Torre M.D. [id number] Sodium [Moles/Vol] 138 mmol/L Normal 135-145 [facility] Comment on above: Order Comment: [facility] has implemented the eGFR calculation approach that does not have a coefficient for race that conforms to the NKF-ASN Task Force Recommendations. Performed By: #### L [id number] #### [facility] [address] [address] Ismael Torre M.D. [id number] Urea nitrogen [Mass/Vol] 31 mg/dL High 8-25 [facility] Comment on above: Order Comment: [facility] has implemented the eGFR calculation approach that does not have a coefficient for race that conforms to the NKF-ASN Task Force Recommendations. Performed By: #### L [id number] #### [facility] [address] [address] Ismael Torre M.D. [id number] Urea nitrogen/Creatinine [Mass ratio] 20.4 mg/mg High 10.0-20.0 [facility] Comment on above: Order Comment: [facility] has implemented the eGFR calculation approach that does not have a coefficient for race that conforms to the NKF-ASN Task Force Recommendations. Performed By: #### L [id number] #### [facility] [address] [address] Ismael Torre M.D. [id number] DRUGS OF ABUSE SCREEN, URINE on 03-04-2024 AMPHETAMINE SCREEN, URINE Not detected Normal None Detected [facility] Comment on above: Order Comment: Scree n results should be used for treatment purposes only.Specimen will be kept for 2 weeks, if the sample is adequate. Confirmation testing can be initiated by calling the lab within 2 weeks. Result Comment: Urin e Amphetamine Cutoff: < 1000 ng/mL = None Detected Performed By: #### L [id number] #### [facility] [address] [address] Ismael Torre M.D. [id number] BARBITURATE SCREEN URINE Positive Abnormal None Detected [facility] Comment on above: Order Comment: Scree n results should be used for treatment purposes only.Specimen will be kept for 2 weeks, if the sample is adequate. Confirmation testing can be initiated by calling the lab within 2 weeks. Result Comment: Urin e Barbiturates Cutoff: < 200 ng/mL = None Detected Performed By: #### L [id number] #### [facility] [address] [address] Ismael Torre M.D. [id number] BENZODIAZEPINE SCREEN, URINE Positive Abnormal None Detected [facility] Comment on above: Order Comment: Scree n results should be used for treatment purposes only.Specimen will be kept for 2 weeks, if the sample is adequate. Confirmation testing can be initiated by calling the lab within 2 weeks. Result Comment: Urin e Benzodiazepine Cutoff: < 200 ng/mL = None Detected Performed By: #### L [id number] #### [facility] [address] [place] [address] Ismael Torre M.D. [id number] BUPRENORPHINE, URINE Not detected Normal None Detected [facility] Comment on above: Order Comment: Scree n results should be used for treatment purposes only.Specimen will be kept for 2 weeks, if the sample is adequate. Confirmation testing can be initiated by calling the lab within 2 weeks. Result Comment: Urin e Buprenorphine Cutoff: < 5 ng/mL = None Detected Performed By: #### L [id number] #### [facility] [address] [address] Ismael Torre M.D. [id number] CANNABINOID SCREEN URINE Not detected Normal None Detected [facility] Comment on above: Order Comment: Scree n results should be used for treatment purposes only.Specimen will be kept for 2 weeks, if the sample is adequate. Confirmation testing can be initiated by calling the lab within 2 weeks. Result Comment: Urin e Cannabinoids Cutoff: < 50 ng/mL = None Detected Performed By: #### L [id number] #### [facility] [address] [address] Ismael Torre M.D. [id number] COCAINE, SCREEN URINE Not detected Normal None Detected [facility] Comment on above: Order Comment: Scree n results should be used for treatment purposes only.Specimen will be kept for 2 weeks, if the sample is adequate. Confirmation testing can be initiated by calling the lab within 2 weeks. Result Comment: Urin e Cocaine Cutoff: < 300 ng/mL = None Detected Performed By: #### L [id number] #### [facility] [address] [address] Ismael Torre M.D. [id number] FENTANYL, URINE Not detected Normal None Detected [facility] Comment on above: Order Comment: Scree n results should be used for treatment purposes only.Specimen will be kept for 2 weeks, if the sample is adequate. Confirmation testing can be initiated by calling the lab within 2 weeks. Result Comment: Urin e Fentanyl Cutoff: < 1 ng/mL = None Detected Performed By: #### L [id number] #### [facility] [address] [place] [address] Ismael Torre M.D. [id number] METHADONE SCREEN, URINE Not detected Normal None Detected [facility] Comment on above: Order Comment: Scree n results should be used for treatment purposes only.Specimen will be kept for 2 weeks, if the sample is adequate. Confirmation testing can be initiated by calling the lab within 2 weeks. Result Comment: Urin e Methadone Cutoff: < 300 ng/mL = None Detected Performed By: #### L [id number] #### [facility] [address] [address] Ismael Torre M.D. [id number] OPIATE SCREEN URINE Not detected Normal None Detected [facility] Comment on above: Order Comment: Scree n results should be used for treatment purposes only.Specimen will be kept for 2 weeks, if the sample is adequate. Confirmation testing can be initiated by calling the lab within 2 weeks. Result Comment: Urin e Opiates Cutoff: < 300 ng/mL = None Detected Performed By: #### L [id number] #### [facility] [address] [address] Ismael Torre M.D. [id number] OXYCODONE SCREEN, URINE Not detected Normal None Detected [facility] Comment on above: Order Comment: Scree n results should be used for treatment purposes only.Specimen will be kept for 2 weeks, if the sample is adequate. Confirmation testing can be initiated by calling the lab within 2 weeks. Result Comment: Urin e Oxycodone Cutoff: < 100 ng/mL = None Detected Performed By: #### L [id number] #### [facility] [address] [address] Ismael Torre M.D. [id number] AMPHETAMINE SCREEN, URINE Not detected Normal None Detected [facility] Comment on above: Order Comment: Scree n results should be used for treatment purposes only.Specimen will be kept for 2 weeks, if the sample is adequate. Confirmation testing can be initiated by calling the lab within 2 weeks. Result Comment: Urin e Amphetamine Cutoff: < 1000 ng/mL = None Detected Performed By: #### [id number] #### [facility] [address] [address] Ismael Torre M.D. [id number] BARBITURATE SCREEN URINE Positive Abnormal None Detected [facility] Comment on above: Order Comment: Scree n results should be used for treatment purposes only.Specimen will be kept for 2 weeks, if the sample is adequate. Confirmation testing can be initiated by calling the lab within 2 weeks. Result Comment: Urin e Barbiturates Cutoff: < 200 ng/mL = None Detected Performed By: #### [id number] #### [facility] [address] [address] Ismael Torre M.D. [id number] BENZODIAZEPINE SCREEN, URINE Positive Abnormal None Detected [facility] Comment on above: Order Comment: Scree n results should be used for treatment purposes only.Specimen will be kept for 2 weeks, if the sample is adequate. Confirmation testing can be initiated by calling the lab within 2 weeks. Result Comment: Urin e Benzodiazepine Cutoff: < 200 ng/mL = None Detected Performed By: #### [id number] #### [facility] [address] [address] Ismael Torre M.D. [id number] BUPRENORPHINE, URINE Not detected Normal None Detected [facility] Comment on above: Order Comment: Scree n results should be used for treatment purposes only.Specimen will be kept for 2 weeks, if the sample is adequate. Confirmation testing can be initiated by calling the lab within 2 weeks. Result Comment: Urin e Buprenorphine Cutoff: < 5 ng/mL = None Detected Performed By: #### [id number] #### LAB [address] [address] Ismael Torre M.D. [id number] CANNABINOID SCREEN URINE Not detected Normal None Detected [facility] Comment on above: Order Comment: Scree n results should be used for treatment purposes only.Specimen will be kept for 2 weeks, if the sample is adequate. Confirmation testing can be initiated by calling the lab within 2 weeks. Result Comment: Urin e Cannabinoids Cutoff: < 50 ng/mL = None Detected Performed By: #### [id number] #### [facility] [address] [address] Ismael Torre M.D. [id number] COCAINE, SCREEN URINE Not detected Normal None Detected [facility] Comment on above: Order Comment: Scree n results should be used for treatment purposes only.Specimen will be kept for 2 weeks, if the sample is adequate. Confirmation testing can be initiated by calling the lab within 2 weeks. Result Comment: Urin e Cocaine Cutoff: < 300 ng/mL = None Detected Performed By: #### [id number] #### LAB [address] [address] Ismael Torre M.D. [id number] FENTANYL, URINE Not detected Normal None Detected [facility] Comment on above: Order Comment: Scree n results should be used for treatment purposes only.Specimen will be kept for 2 weeks, if the sample is adequate. Confirmation testing can be initiated by calling the lab within 2 weeks. Result Comment: Urin e Fentanyl Cutoff: < 1 ng/mL = None Detected Performed By: #### [id number] #### [facility] [address] [address] Ismael Torre M.D. [id number] METHADONE SCREEN, URINE Not detected Normal None Detected [facility] Comment on above: Order Comment: Scree n results should be used for treatment purposes only.Specimen will be kept for 2 weeks, if the sample is adequate. Confirmation testing can be initiated by calling the lab within 2 weeks. Result Comment: Urin e Methadone Cutoff: < 300 ng/mL = None Detected Performed By: #### [id number] #### [facility] [address] [place], [place] [address] Ismael Torre M.D. [id number] OPIATE SCREEN URINE Not detected Normal None Detected [facility] Comment on above: Order Comment: Scree n results should be used for treatment purposes only.Specimen will be kept for 2 weeks, if the sample is adequate. Confirmation testing can be initiated by calling the lab within 2 weeks. Result Comment: Urin e Opiates Cutoff: < 300 ng/mL = None Detected Performed By: #### [id number] #### LAB [address] [place], [place] [address] Ismael Torre M.D. [id number] OXYCODONE SCREEN, URINE Not detected Normal None Detected [facility] Comment on above: Order Comment: Scree n results should be used for treatment purposes only.Specimen will be kept for 2 weeks, if the sample is adequate. Confirmation testing can be initiated by calling the lab within 2 weeks. Result Comment: Urin e Oxycodone Cutoff: < 100 ng/mL = None Detected Performed By: #### [id number] #### LAB [address] [place], [place] [address] Ismael Torre M.D. [id number] ED Prov Noteon 03-04-2024 ED Prov Note ED PROVIDER NOTE [facility] NAME: Reema Shah AGE: 48 y.o. : 1975 VISIT DATE: 03/04/2024 CSN: [id number] PCP: Jyoti Gupta MD Chief Complaint Patient [...] History: Diagnosis Date Acquired thrombocytopenia ([facility]) [facility]/Lopez Shaikh Acute kidney injury (HCC) 05/22/2018 [facility]/Jonatan Chiu DO Anxiety Arm abrasion 06/19/2019 INFO GAINED FROM: /[facility] ED VISIT NOTE --- AC GAO MD Calcaneal spur of right foot 2016 Documented on x-ray CKD (chronic kidney disease) Congestive heart failure (CHF) ([facility]) [facility] Contusion, hip 06/19/2019 INFO GAINED FROM: /[facility] ED VISIT NOTE --- AC GAO MD Depression Epilepsy ([facility]) 08/06/2011 [facility]- Dr. Chopra Epilepsy ([facility]) 1993 Facet degeneration of lumbar region 10/14/2018 [facility]/Jono ALEXIS, Moi Mild facet degenerative changes seen in the lower lumbar spine Fatty liver [facility]/Joe Mendieta MD Mild fibrofatty changes of the liver Fluid collection (edema) in the arms, legs, hands and feet 03/09/2018 Dr valentina Chopra Gastritis determined by endoscopy 12/29/2016 Dr. GonzalezWssppl-Lkadrptci-ollyiv forated nonbleeding with biopsy 1 para 1 Hepatic steatosis [facility]/Heidy Jara MD Mild Hiatal hernia 12/29/[address] Lobo grade 4 Hypercholesterolemia [facility]/Jonatan Chiu DO Hypertension 2000 2000-present Insomnia [facility] Kidney stone [facility] Laceration of head 06/19/2019 INFO GAINED FROM: /[facility] ED VISIT NOTE --- AC GAO MD Lung nodule 12/15/2017 0.5 cm pleural based nodule in right middle lobe. Mild linear atelectasis Mitral valve prolapse [facility] Motor seizure ([facility]) 03/16/2019 INFO GAINED FROM: /[facility] ED VISIT --- BLAKE STEELECAREN Rectus diastasis [facility]/Heidy Jara MD Present with small wide necked perumbical ventral containing fat. Second degree burn of foot 04/23/2018 Right Foot - [facility] Sleep apnea Stroke (HCC) 2001 mild Tremor Past Surgical History: Procedure Laterality Date Conner pH capsule placement 02/01/2017 Dr. Lobo BREAST REDUCTION 2000 [facility] hiatal hernia-nonperforating gastritis ESOPHAGEAL MANOMETRY [...] . albuterol (more content not included)... Normal [facility] LEVETIRACETAM LEVELon 2023 levETIRAcetam [Mass/Vol] 68.5 ug/mL High 6.0-46.0 [facility] Comment on above: Performed By: #### [id number] #### LAB [address] [place], [place] [address] Ismael Torre M.D. [id number] PROTEIN / CREATININE RATIO, URINEon 03-04-2024 CREATININE,UR 18.6 mg/dL Normal [facility] Comment on above: Performed By: #### L [id number] #### [facility] [address] [place], [place] [address] Ismael Torre M.D. [id number] Protein (U) [Mass/Vol] 12.1 mg/dL Normal [facility] Comment on above: Performed By: #### L [id number] #### [facility] [address] [id number] Ismael Torre M.D. [id number] PROTEIN CREATININE RATIO 0.7 ratio High 0.0-0.2 [facility] Comment on above: Performed By: #### L [id number] #### [facility] [address] [address] Ismeal Torre M.D. [id number] URINALYSISon 03-04-2024 BACTERIA, URINE None Seen Normal None Seen [facility] Comment on above: Order Comment: Micro scopic examination is performed on all urinalysis samples and only positive findings are reported. The test for blood on the chemical analytic portion of urinalysis may also be positive due to hemoglobinuria and myoglobinuria and if red blood cells are present they are quantified by microscopic examination. Performed By: #### L [id number] #### [facility] [address] [address] Ismael Torre M.D. [id number] BILIRUBIN, URINE Negative Normal Negative [facility] Comment on above: Order Comment: Micro scopic examination is performed on all urinalysis samples and only positive findings are reported. The test for blood on the chemical analytic portion of urinalysis may also be positive due to hemoglobinuria and myoglobinuria and if red blood cells are present they are quantified by microscopic examination. Performed By: #### L [id number] #### [facility] [address] [address] Ismael Torre M.D. [id number] BLOOD, URINE Small Abnormal Negative [facility] Comment on above: Order Comment: Micro scopic examination is performed on all urinalysis samples and only positive findings are reported. The test for blood on the chemical analytic portion of urinalysis may also be positive due to hemoglobinuria and myoglobinuria and if red blood cells are present they are quantified by microscopic examination. Performed By: #### L [id number] #### [facility] [address] [address] Ismael Torre M.D. [id number] Clarity (U) Clear Normal Clear [facility] Comment on above: Order Comment: Micro scopic examination is performed on all urinalysis samples and only positive findings are reported. The test for blood on the chemical analytic portion of urinalysis may also be positive due to hemoglobinuria and myoglobinuria and if red blood cells are present they are quantified by microscopic examination. Performed By: #### L [id number] #### [facility] [address] [address] Ismael Torre M.D. [id number] Color (U) Colorless Normal Colorless, Yellow [facility] Comment on above: Order Comment: Micro scopic examination is performed on all urinalysis samples and only positive findings are reported. The test for blood on the chemical analytic portion of urinalysis may also be positive due to hemoglobinuria and myoglobinuria and if red blood cells are present they are quantified by microscopic examination. Performed By: #### L [id number] #### [facility] [address] [address] Ismael Torre M.D. [id number] Glucose Ql (U) Negative Normal Negative [facility] Comment on above: Order Comment: Micro scopic examination is performed on all urinalysis samples and only positive findings are reported. The test for blood on the chemical analytic portion of urinalysis may also be positive due to hemoglobinuria and myoglobinuria and if red blood cells are present they are quantified by microscopic examination. Performed By: #### L [id number] #### [facility] [address] [address] Ismael Torre M.D. [id number] Ketones Ql (U) Negative Normal Negative [facility] Comment on above: Order Comment: Micro scopic examination is performed on all urinalysis samples and only positive findings are reported. The test for blood on the chemical analytic portion of urinalysis may also be positive due to hemoglobinuria and myoglobinuria and if red blood cells are present they are quantified by microscopic examination. Performed By: #### L [id number] #### [facility] [address] [place], [place] [address] Ismael Torre M.D. [id number] Leukocyte esterase Test strip Ql (U) Negative Normal Negative [facility] Comment on above: Order Comment: Micro scopic examination is performed on all urinalysis samples and only positive findings are reported. The test for blood on the chemical analytic portion of urinalysis may also be positive due to hemoglobinuria and myoglobinuria and if red blood cells are present they are quantified by microscopic examination. Performed By: #### L [id number] #### [facility] [address] [address] Ismael Torre M.D. [id number] NITRITE, URINE Negative Normal Negative [facility] Comment on above: Order Comment: Micro scopic examination is performed on all urinalysis samples and only positive findings are reported. The test for blood on the chemical analytic portion of urinalysis may also be positive due to hemoglobinuria and myoglobinuria and if red blood cells are present they are quantified by microscopic examination. Performed By: #### L [id number] #### [facility] [address] [id number] Ismael Torre M.D. [id number] pH (U) 7.5 [pH] High 5.0-7.0 [facility] Comment on above: Order Comment: Micro scopic examination is performed on all urinalysis samples and only positive findings are reported. The test for blood on the chemical analytic portion of urinalysis may also be positive due to hemoglobinuria and myoglobinuria and if red blood cells are present they are quantified by microscopic examination. Performed By: #### L [id number] #### [facility] [address] [id number] Ismael Torre M.D. [id number] PROTEIN, URINE Negative Normal Negative [facility] Comment on above: Order Comment: Micro scopic examination is performed on all urinalysis samples and only positive findings are reported. The test for blood on the chemical analytic portion of urinalysis may also be positive due to hemoglobinuria and myoglobinuria and if red blood cells are present they are quantified by microscopic examination. Performed By: #### L [id number] #### [facility] [address] [address] Ismael Torre M.D. [id number] RBC LM.HPF (Urine sed) [#/Area] 1 /[HPF] Normal 0-3 [facility] Comment on above: Order Comment: Micro scopic examination is performed on all urinalysis samples and only positive findings are reported. The test for blood on the chemical analytic portion of urinalysis may also be positive due to hemoglobinuria and myoglobinuria and if red blood cells are present they are quantified by microscopic examination. Performed By: #### L [id number] #### [facility] [address] [address] Ismael Torre M.D. [id number] Specific gravity (U) [Rel density] 1.010 Normal 1.005-1.025 [facility] Comment on above: Order Comment: Micro scopic examination is performed on all urinalysis samples and only positive findings are reported. The test for blood on the chemical analytic portion of urinalysis may also be positive due to hemoglobinuria and myoglobinuria and if red blood cells are present they are quantified by microscopic examination. Performed By: #### L [id number] #### [facility] [address] [address] Ismael Torre M.D. [id number] SQUAMOUS EPITHELIAL 2 /hpf Normal 0-4 [facility] Comment on above: Order Comment: Micro scopic examination is performed on all urinalysis samples and only positive findings are reported. The test for blood on the chemical analytic portion of urinalysis may also be positive due to hemoglobinuria and myoglobinuria and if red blood cells are present they are quantified by microscopic examination. Performed By: #### L [id number] #### [facility] [address] [address] Ismael Torre M.D. [id number] UROBILINOGEN, URINE <2.0 Normal <2.0 [facility] Comment on above: Order Comment: Micro scopic examination is performed on all urinalysis samples and only positive findings are reported. The test for blood on the chemical analytic portion of urinalysis may also be positive due to hemoglobinuria and myoglobinuria and if red blood cells are present they are quantified by microscopic examination. Performed By: #### L [id number] #### [facility] [address] [id number] Ismael Torre M.D. [id number] BACTERIA, URINE Rare Abnormal None Seen [facility] Comment on above: Order Comment: Micro scopic examination is performed on all urinalysis samples and only positive findings are reported. The test for blood on the chemical analytic portion of urinalysis may also be positive due to hemoglobinuria and myoglobinuria and if red blood cells are present they are quantified by microscopic examination. Performed By: #### L [id number] #### [facility] [address] [address] Ismael Torre M.D. [id number] BILIRUBIN, URINE Negative Normal Negative [facility] Comment on above: Order Comment: Micro scopic examination is performed on all urinalysis samples and only positive findings are reported. The test for blood on the chemical analytic portion of urinalysis may also be positive due to hemoglobinuria and myoglobinuria and if red blood cells are present they are quantified by microscopic examination. Performed By: #### L [id number] #### [facility] [address] [address] Ismael Torre M.D. [id number] BLOOD, URINE Small Abnormal Negative [facility] Comment on above: Order Comment: Micro scopic examination is performed on all urinalysis samples and only positive findings are reported. The test for blood on the chemical analytic portion of urinalysis may also be positive due to hemoglobinuria and myoglobinuria and if red blood cells are present they are quantified by microscopic examination. Performed By: #### L [id number] #### [facility] [address] [place], [place] [address] Ismael Torre M.D. [id number] Clarity (U) Clear Normal Clear [facility] Comment on above: Order Comment: Micro scopic examination is performed on all urinalysis samples and only positive findings are reported. The test for blood on the chemical analytic portion of urinalysis may also be positive due to hemoglobinuria and myoglobinuria and if red blood cells are present they are quantified by microscopic examination. Performed By: #### L [id number] #### [facility] [address] [address] Ismael Torre M.D. [id number] Color (U) Yellow Normal Colorless, Yellow [facility] Comment on above: Order Comment: Micro scopic examination is performed on all urinalysis samples and only positive findings are reported. The test for blood on the chemical analytic portion of urinalysis may also be positive due to hemoglobinuria and myoglobinuria and if red blood cells are present they are quantified by microscopic examination. Performed By: #### L [id number] #### [facility] [address] [address] Ismael Torre M.D. [id number] Glucose Ql (U) Negative Normal Negative [facility] Comment on above: Order Comment: Micro scopic examination is performed on all urinalysis samples and only positive findings are reported. The test for blood on the chemical analytic portion of urinalysis may also be positive due to hemoglobinuria and myoglobinuria and if red blood cells are present they are quantified by microscopic examination. Performed By: #### L [id number] #### [facility] [address] [address] Ismael Torre M.D. [id number] Ketones Ql (U) Negative Normal Negative [facility] Comment on above: Order Comment: Micro scopic examination is performed on all urinalysis samples and only positive findings are reported. The test for blood on the chemical analytic portion of urinalysis may also be positive due to hemoglobinuria and myoglobinuria and if red blood cells are present they are quantified by microscopic examination. Performed By: #### L [id number] #### [facility] [address] [address] Ismael Torre M.D. [id number] Leukocyte esterase Test strip Ql (U) Trace Abnormal Negative [facility] Comment on above: Order Comment: Micro scopic examination is performed on all urinalysis samples and only positive findings are reported. The test for blood on the chemical analytic portion of urinalysis may also be positive due to hemoglobinuria and myoglobinuria and if red blood cells are present they are quantified by microscopic examination. Performed By: #### L [id number] #### [facility] [address] [address] Ismael Torre M.D. [id number] NITRITE, URINE Negative Normal Negative [facility] Comment on above: Order Comment: Micro scopic examination is performed on all urinalysis samples and only positive findings are reported. The test for blood on the chemical analytic portion of urinalysis may also be positive due to hemoglobinuria and myoglobinuria and if red blood cells are present they are quantified by microscopic examination. Performed By: #### L [id number] #### [facility] [address] [address] Ismael Torre M.D. [id number] pH (U) 6.5 [pH] Normal 5.0-7.0 [facility] Comment on above: Order Comment: Micro scopic examination is performed on all urinalysis samples and only positive findings are reported. The test for blood on the chemical analytic portion of urinalysis may also be positive due to hemoglobinuria and myoglobinuria and if red blood cells are present they are quantified by microscopic examination. Performed By: #### L [id number] #### [facility] [address] [address] Ismael Torre M.D. [id number] PROTEIN, URINE Negative Normal Negative [facility] Comment on above: Order Comment: Micro scopic examination is performed on all urinalysis samples and only positive findings are reported. The test for blood on the chemical analytic portion of urinalysis may also be positive due to hemoglobinuria and myoglobinuria and if red blood cells are present they are quantified by microscopic examination. Performed By: #### L [id number] #### [facility] [address] [address] Ismael Torre M.D. [id number] RBC LM.HPF (Urine sed) [#/Area] 10 /[HPF] High 0-3 [facility] Comment on above: Order Comment: Micro scopic examination is performed on all urinalysis samples and only positive findings are reported. The test for blood on the chemical analytic portion of urinalysis may also be positive due to hemoglobinuria and myoglobinuria and if red blood cells are present they are quantified by microscopic examination. Performed By: #### L [id number] #### [facility] [address] [address] Ismael Torre M.D. [id number] Specific gravity (U) [Rel density] 1.018 Normal 1.005-1.025 [facility] Comment on above: Order Comment: Micro scopic examination is performed on all urinalysis samples and only positive findings are reported. The test for blood on the chemical analytic portion of urinalysis may also be positive due to hemoglobinuria and myoglobinuria and if red blood cells are present they are quantified by microscopic examination. Performed By: #### L [id number] #### [facility] [address] [place] [address] Ismael Torre M.D. [id number] SQUAMOUS EPITHELIAL 2 /hpf Normal 0-4 [facility] Comment on above: Order Comment: Micro scopic examination is performed on all urinalysis samples and only positive findings are reported. The test for blood on the chemical analytic portion of urinalysis may also be positive due to hemoglobinuria and myoglobinuria and if red blood cells are present they are quantified by microscopic examination. Performed By: #### L [id number] #### LAB [address] [place] [address] Ismael Torre M.D. [id number] UROBILINOGEN, URINE <2.0 Normal <2.0 [facility] Comment on above: Order Comment: Micro scopic examination is performed on all urinalysis samples and only positive findings are reported. The test for blood on the chemical analytic portion of urinalysis may also be positive due to hemoglobinuria and myoglobinuria and if red blood cells are present they are quantified by microscopic examination. Performed By: #### L [id number] #### [facility] [address] [address] Ismael Torre M.D. [id number] WBC LM.HPF (Urine sed) [#/Area] 1 /[HPF] Normal 0-5 [facility] Comment on above: Order Comment: Micro scopic examination is performed on all urinalysis samples and only positive findings are reported. The test for blood on the chemical analytic portion of urinalysis may also be positive due to hemoglobinuria and myoglobinuria and if red blood cells are present they are quantified by microscopic examination. Performed By: #### L [id number] #### [facility] [address] [address] Ismael Torre M.D. [id number] URINE AEROBIC CULTUREon 02-15 URINE AEROBIC CULTURE URINE CULTURE < 10,000 CFU/mL of normal urogenital microbiota Normal [facility] Comment on above: Performed By: #### 4 5060 #### [facility] [address] [address] Ismael Torre M.D. [id number] VALPROIC ACID LEVELon 2023 VALPROIC ACID 25 mcg/mL Low 50-100 [facility] Comment on above: Performed By: #### L [id number] #### [facility] [address] [address] Ismael Torre M.D. [id number] VALPROIC ACID 30 mcg/mL Low 50-100 [facility] Comment on above: Performed By: #### L [id number] #### [facility] [address] [address] Ismael Torre M.D. [id number] VALPROIC ACID, FREEon 2023 [facility] VALPROIC ACID FREE <3 Low 5 - 25 [facility] Comment on above: Result Comment: Test Performed by: [place] [address] Mathematician: Benigno Madsen M.D. Ph.D.; CLIA# [id number] Performed By: #### L [id number] #### [facility] [address] [address] Ismael Torre M.D. [id number] BASIC METABOLIC PANELon 02-15 Anion gap [Moles/Vol] 16 mmol/L Normal 10-20 [facility] Comment on above: Order Comment: [facility] has implemented the eGFR calculation approach that does not have a coefficient for race that conforms to the NKF-ASN Task Force Recommendations. Performed By: #### L [id number] #### LAB [address] [place], [place] [address] Ismael Torre M.D. [id number] Calcium [Mass/Vol] 8.9 mg/dL Normal 8.4-10.2 [facility] Comment on above: Order Comment: [facility] has implemented the eGFR calculation approach that does not have a coefficient for race that conforms to the NKF-ASN Task Force Recommendations. Performed By: #### L [id number] #### [facility] [address] [place], [place] [address] Ismael Torre M.D. [id number] Chloride [Moles/Vol] 104 mmol/L Normal 98-108 [facility] Comment on above: Order Comment: [facility] has implemented the eGFR calculation approach that does not have a coefficient for race that conforms to the NKF-ASN Task Force Recommendations. Performed By: #### L [id number] #### LAB [address] [place], [place] [address] Ismael Torre M.D. [id number] Creatinine [Mass/Vol] 1.43 mg/dL High 0.40-1.10 [facility] Comment on above: Order Comment: [facility] has implemented the eGFR calculation approach that does not have a coefficient for race that conforms to the NKF-ASN Task Force Recommendations. Performed By: #### L [id number] #### [facility] [address] [place], [place] [address] Ismael Torre M.D. [id number] EGFR 45 mL/min/1.73 m2 Low >=60 [facility] Comment on above: Order Comment: [facility] has implemented the eGFR calculation approach that does not have a coefficient for race that conforms to the NKF-ASN Task Force Recommendations. Result Comment: Frieda mated GFR was calculated using the 2020 CKD-EPI creatinine equation. Performed By: #### L [id number] #### [facility] [address] [id number] Ismael Torre M.D. [id number] Glucose [Mass/Vol] 100 mg/dL High 65-99 [facility] Comment on above: Order Comment: [facility] has implemented the eGFR calculation approach that does not have a coefficient for race that conforms to the NKF-ASN Task Force Recommendations. Performed By: #### L [id number] #### [facility] [address] [address] Ismael Torre M.D. [id number] HCO3 (Bld) [Moles/Vol] 23 mmol/L Normal 21-32 [facility] Comment on above: Order Comment: [facility] has implemented the eGFR calculation approach that does not have a coefficient for race that conforms to the NKF-ASN Task Force Recommendations. Performed By: #### L [id number] #### [facility] [address] [address] Ismael Torre M.D. [id number] Potassium [Moles/Vol] 4.9 mmol/L Normal 3.5-5.1 [facility] Comment on above: Order Comment: [facility] has implemented the eGFR calculation approach that does not have a coefficient for race that conforms to the NKF-ASN Task Force Recommendations. Result Comment: Slig htly Hemolyzed Performed By: #### L [id number] #### [facility] [address] [address] Ismael Torre M.D. [id number] Sodium [Moles/Vol] 138 mmol/L Normal 135-145 [facility] Comment on above: Order Comment: [facility] has implemented the eGFR calculation approach that does not have a coefficient for race that conforms to the NKF-ASN Task Force Recommendations. Performed By: #### L [id number] #### [facility] [address] [address] Ismael Torre M.D. [id number] Urea nitrogen [Mass/Vol] 23 mg/dL Normal 8-25 [facility] Comment on above: Order Comment: [facility] has implemented the eGFR calculation approach that does not have a coefficient for race that conforms to the NKF-ASN Task Force Recommendations. Performed By: #### L [id number] #### LAB [address] [address] Ismael Torre M.D. [id number] Urea nitrogen/Creatinine [Mass ratio] 16.1 mg/mg Normal 10.0-20.0 [facility] Comment on above: Order Comment: [facility] has implemented the eGFR calculation approach that does not have a coefficient for race that conforms to the NKF-ASN Task Force Recommendations. Performed By: #### L [id number] #### LAB [address] [address] Ismael Torre M.D. [id number] CBC WITH AUTO DIFFERENTIALon 03-03-2024 AUTO NRBC 0.0 % [facility] Comment on above: Performed By: #### 4 5060 #### [facility] [address] [address] Ismael Torre M.D. [id number] AUTO NRBC ABS COUNT 0.00 K/mcL Normal 0.00-0.00 [facility] Comment on above: Performed By: #### 4 5060 #### LAB [address] [place] [address] Ismael Torre M.D. [id number] BASOPHILS ABSOLUTE COUNT 0.01 K/mcL Normal 0.00-0.30 [facility] Comment on above: Performed By: #### 4 5060 #### LAB [address] [address] Ismael Torre M.D. [id number] Basophils/100 WBC (Bld) 0.2 % [facility] Comment on above: Performed By: #### 4 5060 #### LAB [address] [address] Ismael Torre M.D. [id number] Eosinophils (Bld) [#/Vol] 0.06 10*3/uL Normal 0.00-0.50 [facility] Comment on above: Performed By: #### 4 5060 #### LAB [address] [address] Ismael Torre M.D. [id number] Eosinophils/100 WBC (Bld) 1.2 % Normal [facility] Comment on above: Performed By: #### 4 5060 #### LAB [address] [address] Ismael Torre M.D. [id number] Erythrocyte distribution width (RBC) [Ratio] 12.6 % Normal 11.6-14.8 [facility] Comment on above: Performed By: #### 4 5060 #### LAB [address] [address] Ismael Torre M.D. [id number] Hematocrit (Bld) [Volume fraction] 39.7 % Normal 36.0-46.0 [facility] Comment on above: Performed By: #### 4 5060 #### LAB [address] [place] [address] Ismael Torre M.D. [id number] Hemoglobin (Bld) [Mass/Vol] 13.6 g/dL Normal 12.0-16.0 [facility] Comment on above: Performed By: #### 4 5060 #### LAB [address] [place] [address] Ismael Torre M.D. [id number] IG ABSOLUTE 0.04 K/mcL Normal 0.00-0.30 [facility] Comment on above: Performed By: #### 4 5060 #### LAB [address] [place] [address] Ismael Torre M.D. [id number] IG PERCENT 0.80 % Normal [facility] Comment on above: Result Comment: The IG parameter is the percentage of metamyelocytes, myelocytes and promyelocytes. An immature granulocyte count (IG) of 1% or more suggests the possibility of infection, an IG count of 3% is very likely related to an infection. Performed By: #### 4 5060 #### LAB [address] [address] Ismael Torre M.D. [id number] Lymphocytes (Bld) [#/Vol] 1.87 10*3/uL Normal 0.90-4.00 [facility] Comment on above: Performed By: #### 4 5060 #### LAB [address] [address] Ismael Torre M.D. [id number] Lymphocytes/100 WBC (Bld) 36.4 % Normal [facility] Comment on above: Performed By: #### 4 5060 #### LAB [address] [address] Ismael Torre M.D. [id number] MCH (RBC) [Entitic mass] 31.1 pg Normal 26.0-34.0 [facility] Comment on above: Performed By: #### 4 5060 #### LAB [address] [address] Ismael Torre M.D. [id number] MCV (RBC) [Entitic vol] 90.6 fL Normal 80.0-100.0 [facility] Comment on above: Performed By: #### 4 5060 #### LAB [address] [place] [address] Ismael Torre M.D. [id number] MEAN CORPUSCULAR HEMOGLOBIN CONC 34.3 g/dL Normal 31.0-37.0 [facility] Comment on above: Performed By: #### 4 5060 #### LAB [address] [address] Ismael Torre M.D. [id number] Monocytes (Bld) [#/Vol] 0.46 10*3/uL Normal 0.30-0.90 [facility] Comment on above: Performed By: #### 4 5060 #### LAB [address] [address] Ismael Torre M.D. [id number] Monocytes/100 WBC (Bld) 8.9 % Normal [facility] Comment on above: Performed By: #### 4 5060 #### LAB [address] [id number] Ismael Torre M.D. [id number] NEUTROPHILS ABSOLUTE COUNT 2.70 K/mcL Normal 1.70-7.00 [facility] Comment on above: Performed By: #### 4 5060 #### LAB [address] [address] Ismael Torre M.D. [id number] Neutrophils/100 WBC (Bld) 52.5 % Normal [facility] Comment on above: Performed By: #### 4 5060 #### LAB [address] [address] Ismael Torre M.D. [id number] Platelet mean volume (Bld) [Entitic vol] 10.2 fL Normal 9.4-12.4 [facility] Comment on above: Performed By: #### 4 5060 #### LAB [address] [address] Ismael Torre M.D. [id number] Platelets (Bld) [#/Vol] 126 10*3/uL Low 150-400 [facility] Comment on above: Performed By: #### 4 5060 #### LAB [address] [address] Ismael Torre M.D. [id number] RBC (Bld) [#/Vol] 4.38 10*6/uL Normal 4.00-5.20 [facility] Comment on above: Performed By: #### 4 5060 #### LAB [address] [address] Ismael Torre M.D. [id number] WBC (Bld) [#/Vol] 5.14 10*3/uL Normal 4.50-11.00 [facility] Comment on above: Performed By: #### 4 5060 #### LAB [address] [address] Ismael Torre M.D. [id number] ED Prov Noteon 03-03-2024 ED Prov Note [facility] ATTENDING NOTE: NAME: Reema Shah CSN: [id number] 48 y.o. PCP: Jyoti Gupta MD History: [...] History: Diagnosis Date Acquired thrombocytopenia ([facility]) [facility]/Lopez Shaikh Acute kidney injury ([facility]) 05/22/2018 [facility]/Jonatan Chiu DO Anxiety Arm abrasion 06/19/2019 INFO GAINED FROM: /[facility] ED VISIT NOTE --- AC GAO MD Calcaneal spur of right foot 2016 Documented on x-ray CKD (chronic kidney disease) Congestive heart failure (CHF) ([facility]) [facility] Contusion, hip 06/19/2019 INFO GAINED FROM: /[facility] ED VISIT NOTE --- AC GAO MD Depression Epilepsy ([facility]) 08/06/2011 [facility]- Dr. Chopra Epilepsy ([facility]) 1993 Facet degeneration of lumbar region 10/14/2018 [facility]/Jono ALEXIS, Moi Mild facet degenerative changes seen in the lower lumbar spine Fatty liver [facility]/Joe Mendieta MD Mild fibrofatty changes of the liver Fluid collection (edema) in the arms, legs, hands and feet 03/09/2018 Dr valentina Chopra Gastritis determined by endoscopy 12/29/2016 Dr. GonzalezKidlwc-Bwgucnmxf-wabcee forated nonbleeding with biopsy 1 para 1 Hepatic steatosis [facility]/Heidy Jara MD Mild Hiatal hernia 12/29/[address] Lobo grade 4 Hypercholesterolemia [facility]/Jonatan hCiu DO Hypertension 2000 2000-present Insomnia [facility] Kidney stone [facility] Laceration of head 06/19/2019 INFO GAINED FROM: /[facility] ED VISIT NOTE --- MENG ALEXIS,AC A Lung nodule 12/15/2017 0.5 cm pleural based nodule in right middle lobe. Mild linear atelectasis Mitral valve prolapse [facility] Motor seizure (HCC) 03/16/2019 INFO GAINED FROM: /[facility] ED VISIT --- BLAKE STEELECAREN Rectus diastasis [facility]/Heidy Jara MD Present with small wide necked perumbical ventral containing fat. Second degree burn of foot 04/23/2018 Right Foot - [facility] Sleep apnea Stroke (HCC) 2000 mild Tremor PMSx: Past Surgical History: Procedure Laterality Date Conner pH capsule placement 02/01/2017 Dr. Lobo BREAST REDUCTION 1999 [facility]-nonperforating gastritis ESOPHAGEAL MANOMETRY 02/01/2017 HERNIA REPAIR 06/11/2017 Dr Richards INTRAUTERINE DEVICE INSERTION 02/15/2015 Dr. Casper [facility] Laparoscopic LINX sphincter augmentation with cruroplasty [...] by nebuliz (more content not included)... Normal [facility] TROPONINon 03-03-2024 BASELINE TROPONIN T NG/L 8 ng/L Normal <=14 [facility] Comment on above: Performed By: #### L [id number] #### [facility] [address] [place], [place] [address] Ismael Torre M.D. [id number] TROPONIN T INTERPRETATION Normal Normal [facility] Comment on above: Performed By: #### L [id number] #### [facility] [address] [place], [place] [address] Ismael Torre M.D. [id number] XR CHEST PA/APon 03-03-2024 XR CHEST PA/AP [...] 03, 2024 6:39:27 PM EDT Transcribed by: MARZENA PERSAUD on WedMarch 03, 2024 6:39:27 PM EDT Finalized by: MARZENA PERSAUD on WedMarch 03, 2024 6:39:27 PM EDT [facility] Comment on above: Order Comment: Injur y/Trauma or Illness?:Illness/OtherHow long have you had these symptoms (acute/chronic)?:AcuteReason for exam?:chest pain and sobHistory of cancer?:nSurgeries, chemotherapy, or radiation?:yesType of Exam?:InitialAdditional signs and symptoms?:. CBC Auto Differentialon 12-16 Erythrocyte distribution width (RBC) [Entitic vol] 13.1 % 11.6 - 14.8 % [facility] Hematocrit (Bld) [Volume fraction] 36.2 % 36.0 - 46.0 % [facility] Hemoglobin (Bld) [Mass/Vol] 12.3 g/dL 12.0 - 16.0 g/dL [facility] MCH (RBC) [Entitic mass] 31.5 pg 26.0 - 34.0 pg [facility] MCHC (RBC) [Mass/Vol] 34.0 g/dL 31.0 - 37.0 g/dL [facility] MCV (RBC) [Entitic vol] 92.8 fL 80.0 - 100.0 fL [facility] Nucleated RBC (Bld) [#/Vol] 0.00 10*3/uL [facility] Nucleated RBC/100 WBC (Bld) [Ratio] 0.0 % [facility] Platelet mean volume (Bld) [Entitic vol] 10.8 fL 9.4 - 12.4 fL [facility] Platelets (Bld) [#/Vol] 104 10*3/uL Low [facility] RBC (Bld) [#/Vol] 3.90 10*6/uL Low [facility] ealth WBC (Bld) [#/Vol] 4.00 10*3/uL Low [facility] eah CBC and Diff Morphologyon Dacrocytes LM Ql (Bld) Few [facility] Ovalocytes LM Ql (Bld) Few [facility] Platelets Large Auto Ql (Bld) Few [facility] RBC morphology finding Nom (Bld) See Comment [facility] Comment on above: RBC Indices confirme [...] is no periappendiceal inflammation to indicate appendicitis. [facility]/mjr Workstation ID: [id number] [place] EXAMINATION: CT DISSECTION WITH PELVIS HISTORY: ORDERING [...] collection. No acute bone findings are seen. TrackVia Summer Kline MD - 01/01/2024 EXAMINATION: CT [...] is no periappendiceal inflammation to indicate appendicitis. [facility]/mjr Workstation ID: [id number] [facility] CT Abdomen and Pelvis W cont rast IVOrdered By: Summer Mauro on 01-01-2024 [facility] Work Phone: Cobalamin (Vitamin B12) [Mas s/Vol]on 01-01-2024 Interpretation and review of laboratory results Normal [facility] Comprehensive metabolic 2000 panelOrdered By: Pratibha Russo on 01-01-2024 Albumin [Mass/Vol] 3.5 g/dL 3.2 - 5.2 g/dL [facility] ALP [Catalytic activity/Vol] 87 U/L 40 - 150 U/L [facility] ALT [Catalytic activity/Vol] 11 U/L 0-35 U/L [facility] Anion gap [Moles/Vol] 16 mmol/L 10 - 2 0 mmol/L [facility] AST [Catalytic activity/Vol] 19 U/L 0-35 U/L [facility] Bilirubin [Mass/Vol] mg/dL 0.0 - 1 .3 mg/dL [facility] Calcium [Mass/Vol] 8.4 mg/dL 8.4 - 10. 2 mg/dL [facility] Chloride [Moles/Vol] 104 mmol/L 98 - 10 8 mmol/L [facility] Creatinine [Mass/Vol] 1.39 mg/dL High 0.40 - 1.10 mg/dL [facility] GFR/1.73 sq M.predicted CKD-EPI (S/P/Bld) [Vol rate/Area] 46 Low - PINF [facility] Comment on above: Estimated GFR was ca lculated using the 2020 CKD-EPI creatinine equation. Glucose [Mass/Vol] 132 mg/dL High 65 - 99 mg/dL [facility] HCO3 [Moles/Vol] 21 mmol/L 21 - 32 mmol/L [facility] Potassium [Moles/Vol] 3.9 mmol/L 3.5 - 5.1 mmol/L [facility] Protein [Mass/Vol] 5.8 g/dL Low 6.0 - 8.0 g/dL [facility] Sodium [Moles/Vol] 137 mmol/L 135 - 145 mmol/L [facility] Urea nitrogen [Mass/Vol] 26 mg/dL High 8 - 25 mg/dL [facility] Urea nitrogen/Creatinine [Mass ratio] 18.7 mg/mg 10.0 - 20.0 [facility] has implemented the eGFR calculation approach that does not have a coefficient for race that conforms to the NKF-ASN Task Force Recommendations. [facility] HbA1c (Bld) [Mass fraction]o n 01-01-2024 Average glucose Estimated from glycated hemoglobin (Bld) [Mass/Vol] 108 mg/dL 74 - 114 mg/dL [facility] Interpretation and review of laboratory results Normal [facility] Hemoglobin A1con 01-01-2024 HbA1c (Bld) [Mass fraction] 5.4 % 4.2 - 5.6 % [facility] Magnesiumon 01-01-2024 Magnesium [Mass/Vol] 1.7 mg/dL 1.6 - 2 .4 mg/dL [facility] Magnesium [Mass/Vol]on 12-31 Interpretation and review of laboratory results Normal [facility] Manual Differential panel (B ld)on 01-01-2024 Basophils (Bld) [#/Vol] 0.00 10*3/uL [facility] Basophils/100 WBC (Bld) 0.0 % [facility] Eosinophils (Bld) [#/Vol] 0.00 10*3/uL [facility] Eosinophils/100 WBC (Bld) 0.0 % [facility] Lymphocytes (Bld) [#/Vol] 1.23 10*3/uL [facility] Lymphocytes/100 WBC (Bld) 30.8 % [facility] Metamyelocytes/100 WBC (Bld) 1.9 % [facility] Monocytes (Bld) [#/Vol] 0.08 10*3/uL Low [facility] Monocytes/100 WBC (Bld) 1.9 % [facility] Neutrophils (Bld) [#/Vol] 2.69 10*3/uL [facility] Neutrophils/100 WBC (Bld) 65.4 % [facility] Nucleated RBC (Bld) [#/Vol] 0.04 10*3/uL High [facility] Nucleated RBC/100 WBC (Bld) [Ratio] 1 % [facility] No Panel Informationon 12-31 Interpretation and review of laboratory results Abnormal [facility] Interpretation and review of laboratory results Abnormal [facility] Phosphoruson 01-01-2024 Phosphate [Mass/Vol] 2.3 mg/dL Low 2.7 - 4 .5 mg/dL [facility] RESPIRATORY PCR PANELon 12-16 RESPIRATORY PCR [...] SARS-COV-2 (BIOFIRE): Not Detected Normal Not Detected [facility] Comment on above: Performed By: #### L [id number] #### [facility] [address] [place] [id number] Ismael Torre M.D. [id number] Respiratory pathogens DNA an d RNA panel CHIARA+non-probe (Nph)Ordered By: Eva Garcia on 01-01-2024 Adenovirus DNA CHIARA+non-probe Ql (Nph) Not detected Not Detected [facility] B. parapertussis [id number] DNA CHIARA+non-probe Ql (Nph) Not detected Not Detected [facility] B. pertussis toxin promoter region CHIARA+non-probe Ql (Nph) Not detected Not Detected [facility] C. pneumoniae DNA CHIARA+non-probe Ql (Nph) Not detected Not Detected [facility] FLUAV RNA CHIARA+non-probe Ql (Nph) Not detected Not Detected [facility] FLUBV RNA CHIARA+non-probe Ql (Nph) Not detected Not Detected [facility] HCoV 229E RNA CHIARA+non-probe Ql (Nph) Not detected Not Detected [facility] HCoV HKU1 RNA CHIARA+non-probe Ql (Nph) Not detected Not Detected [facility] HCoV NL63 RNA CHIARA+non-probe Ql (Nph) Not detected Not Detected [facility] HCoV OC43 RNA CHIARA+non-probe Ql (Nph) Not detected Not Detected [facility] hMPV RNA CHIARA+non-probe Ql (Nph) Not detected Not Detected [facility] Interpretation and review of laboratory results Normal [facility] M. pneumoniae DNA CHIARA+non-probe Ql (Nph) Not detected Not Detected [facility] Parainfluenza virus 1 RNA CHIRAA+non-probe Ql (Nph) Not detected Not Detected [facility] Parainfluenza virus 2 RNA CHIARA+non-probe Ql (Nph) Not detected Not Detected [facility] Parainfluenza virus 3 RNA CHIARA+non-probe Ql (Nph) Not detected Not Detected [facility] Parainfluenza virus 4 RNA CHIARA+non-probe Ql (Nph) Not detected Not Detected [facility] Rhinovirus+Enteroviru s RNA CHIARA+non-probe Ql (Nph) Not detected Not Detected [facility] RSV RNA CHIARA+non-probe Ql (Nph) Not detected Not Detected [facility] SARS-CoV-2 (COVID-19) RNA CHIARA+non-probe Ql (Nph) Not detected Not Detected [facility] TSH DL <= 0.005 mIU/L Qnon 0 01-01-2024 Interpretation and review of laboratory results Normal [facility] TSH Qn 3.71 m[IU]/L [facility] Troponinon 01-01-2024 Delta Difference Troponin T 0 ng/L < = -/+ 7 change [facility] Troponin T Delta Change No biomarker evidence of cardiac injury. [facility] Troponin T 8 ng/L NINF - 14 ng/L [facility] Delta Difference Troponin T 0 ng/L < = -/+ 7 change [facility] Inter Troponin T Delta Change No biomarker evidence of cardiac injury. [facility] Troponin T 8 ng/L NINF - 14 ng/L [facility] Troponin x 2 (Now and Repeat in 3 hours)on 01-01-2024 Delta Difference Troponin T 0 ng/L < = -/+ 7 change [facility] Troponin T Delta Change No biomarker evidence of cardiac injury. [facility] Troponin T 8 ng/L NINF - 14 ng/L [facility] Valproate [Mass/Vol]on 12-31 Interpretation and review of laboratory results Abnormal [facility] Valproic Acid Levelon 2023 Valproate [Mass/Vol] 35 ug/mL Low [facility] Vitamin B12on 01-01-2024 Cobalamin (Vitamin B12) [Mass/Vol] 1219 pg/mL 232 - 1245 pg/mL [facility] Basic metabolic 2000 panelon 12-31-2023 Anion gap [Moles/Vol] 15 mmol/L 10 - 2 0 mmol/L [facility] Calcium [Mass/Vol] 9.3 mg/dL 8.4 - 10. 2 mg/dL [facility] Chloride [Moles/Vol] 106 mmol/L 98 - 10 8 mmol/L [facility] Creatinine [Mass/Vol] 1.38 mg/dL High 0.40 - 1.10 mg/dL [facility] GFR/1.73 sq M.predicted CKD-EPI (S/P/Bld) [Vol rate/Area] 47 Low - PINF [facility] Comment on above: Estimated GFR was ca lculated using the 2020 CKD-EPI creatinine equation. Glucose [Mass/Vol] 98 mg/dL 65 - 99 mg/dL [facility] HCO3 [Moles/Vol] 24 mmol/L 21 - 32 mmol/L [facility] Potassium [Moles/Vol] 4.5 mmol/L 3.5 - 5.1 mmol/L [facility] Sodium [Moles/Vol] 140 mmol/L 135 - 145 mmol/L [facility] Urea nitrogen [Mass/Vol] 25 mg/dL 8 - 25 mg/dL [facility] Urea nitrogen/Creatinine [Mass ratio] 18.1 mg/mg 10.0 - 20.0 [facility] has implemented the eGFR calculation approach that does not have a coefficient for race that conforms to the NKF-ASN Task Force Recommendations. [facility] CBC Auto Differentialon 12-16 Basophils (Bld) [#/Vol] 0.02 10*3/uL [facility] Basophils/100 WBC (Bld) 0.4 % [facility] Eosinophils (Bld) [#/Vol] 0.09 10*3/uL [facility] Eosinophils/100 WBC (Bld) 1.7 % [facility] Erythrocyte distribution width (RBC) [Entitic vol] 13.0 % 11.6 - 14.8 % [facility] Hematocrit (Bld) [Volume fraction] 38.9 % 36.0 - 46.0 % [facility] Hemoglobin (Bld) [Mass/Vol] 13.3 g/dL 12.0 - 16.0 g/dL [facility] Immature granulocytes (Bld) [#/Vol] 0.06 10*3/uL [facility] Immature granulocytes/100 WBC (Bld) 1.10 % [facility] Comment on above: The IG parameter is the percentage of metamyelocytes, myelocytes and promyelocytes. An immature granulocyte count (IG) of 1% or more suggests the possibility of infection, an IG count of 3% is very likely related to an infection. Interpretation and review of laboratory results Abnormal [facility] Lymphocytes (Bld) [#/Vol] 1.59 10*3/uL [facility] Lymphocytes/100 WBC (Bld) 29.9 % [facility] MCH (RBC) [Entitic mass] 31.3 pg 26.0 - 34.0 pg [facility] MCHC (RBC) [Mass/Vol] 34.2 g/dL 31.0 - 37.0 g/dL [facility] MCV (RBC) [Entitic vol] 91.5 fL 80.0 - 100.0 fL [facility] Monocytes (Bld) [#/Vol] 0.49 10*3/uL [facility] Monocytes/100 WBC (Bld) 9.2 % [facility] Neutrophils (Bld) [#/Vol] 3.07 10*3/uL [facility] Neutrophils/100 WBC (Bld) 57.7 % [facility] Nucleated RBC (Bld) [#/Vol] 0.00 10*3/uL [facility] Nucleated RBC/100 WBC (Bld) [Ratio] 0.0 % [facility] Platelet mean volume (Bld) [Entitic vol] 10.5 fL 9.4 - 12.4 fL [facility] Platelets (Bld) [#/Vol] 121 10*3/uL Low [facility] RBC (Bld) [#/Vol] 4.25 10*6/uL [facility] WBC (Bld) [#/Vol] 5.32 10*3/uL [facility] CT Abdomen and Pelvis W cont rast Deepak 12-31-2023 Radiology Study observation (narrative) [facility] CT DISSECTION WITH PELVISon 12-31-2023 CT [...] is no periappendiceal inflammation to indicate appendicitis. [facility] Workstation ID: [id number] Dictated by: SUMMER MAURO on [facility] Jan 01, 2024 6:05:41 AM EDT Transcribed by: YOANDY GLORIA on [facility] Jan 01, 2024 6:11:01 AM EDT Finalized by: SUMMER MAURO on [facility] Jan 01, 2024 6:12:43 AM EDT [facility] Comment on above: Order Comment: Injur y/Trauma or Illness?:Illness/OtherHow long have you had these symptoms (acute/chronic)?:AcuteReason for exam?:Per EMS patient chest pain started an hour ago and it radiates across her back. Patient complains of 10/10 chest painType of Exam?:InitialAdditional signs and symptoms?:. EKGon 12-31-2023 [facility] EKG 12-leadon 12-31-2023 Atrial Rate 72 BPM [facility] P [place] 46 degrees [facility] P-R Interval 156 ms [facility] Q-T Interval 390 ms [facility] QRS Duration 82 ms [facility] QTC Calculation (Bezet) 427 ms [facility] R [place] 43 degrees [facility] T [place] 74 degrees [facility] Ventricular Rate 72 BPM [facility] th Normal sinus rhythm Cannot rule out Anterior infarct , age undetermined Abnormal ECG ECG Cart Interpretation see physician note for interpretation. Confirmed by Susan Madera ([id number]) on 12/31/2023 9:13:45 PM [facility] Hepatic function 2000 panelO rdered By: Lori Whitten on 12-31-2023 Albumin [Mass/Vol] 3.8 g/dL 3.2 - 5.2 g/dL [facility] ALP [Catalytic activity/Vol] 84 U/L 40 - 150 U/L [facility] ALT [Catalytic activity/Vol] 13 U/L 0-35 U/L [facility] AST [Catalytic activity/Vol] 24 U/L 0-35 U/L [facility] Bilirubin [Mass/Vol] mg/dL 0.0 - 1 .3 mg/dL [facility] Bilirubin.conjugated [Mass/Vol] mg/dL 0.0 - 0.4 mg/dL [facility] Interpretation and review of laboratory results Normal [facility] Protein [Mass/Vol] 6.3 g/dL 6.0 - 8.0 g/dL [facility] Lipaseon 12-31-2023 Lipase [Catalytic activity/Vol] 66 U/L High 15 - 65 U/L [facility] Lipase [Catalytic activity/V ol]on 12-31-2023 Interpretation and review of laboratory results Abnormal [facility] Lipid 1996 panelon Cholesterol [Mass/Vol] 208 mg/dL High 100 - 199 mg/dL [facility] Cholesterol in HDL [Mass/Vol] 39 mg/dL Low 40 - 59 mg/dL [facility] Cholesterol in LDL [Mass/Vol] 96 mg/dL 10 - 130 mg/dL [facility] Comment on above: National Cholesterol Education Program Guidelines: LDL Cholesterol Optimal: <100 mg/dL Near Optimal/above Optimal: 100-129 mg/dL Borderline High: 130-159 mg/dL High: 160-189 mg/dL Very High: greater than or equal to 190 mg/dL Cholesterol non HDL [Mass/Vol] 169 mg/dL [facility] Comment on above: National Cholesterol Education Program Guidelines: NON HDL Cholesterol Desirable: <130 mg/dL Borderline High: 130-159 mg/dL High: 160-189 mg/dL Very High: > or = 190 mg/dL Cholesterol.total/Cho lesterol in HDL [Mass ratio] 5.3 {ratio} ratio [facility] Comment on above: Female Cholesterol/H DL Ratio: Average risk: 4.4 1/2 average risk: 3.3 2 x average risk: 7.1 Triglyceride [Mass/Vol] 363 mg/dL High 30 - 150 mg/dL [facility] Magnesiumon 12-31-2023 Magnesium [Mass/Vol] 1.9 mg/dL 1.6 - 2 .4 mg/dL [facility] Magnesium [Mass/Vol]on 12-30 Interpretation and review of laboratory results Normal [facility] NT Pro BNPon 12-31-2023 Natriuretic peptide.B prohormone N-Terminal [Mass/Vol] 352 pg/mL High 0 - 300 pg/mL [facility] Natriuretic peptide.B prohor mamie N-Terminal [Mass/Vol]on 12-31-2023 Pride Study Cut-offs Rule In: < /= 50 Years >450 pg/mL 51 Years - 75 Years >900 pg/mL 76 Years - 99 Years >1800 pg/mL Rule Out: All patients <300 pg/mL [facility] No Panel Informationon 12-30 Interpretation and review of laboratory results Abnormal [facility] Extra Tube Hold for add-ons. [facility] Comment on above: Auto resulted. [facility] Interpretation and review of laboratory results Abnormal [facility] Phosphoruson 12-31-2023 Phosphate [Mass/Vol] 2.1 mg/dL Low 2.7 - 4 .5 mg/dL [facility] Troponin x 2 (Now and Repeat in 3 hours)on 12-31-2023 Troponin T 8 ng/L NINF - 14 ng/L [facility] Troponin T Interpretation Normal [facility] XR CHEST PA/APon 12-31-2023 XR CHEST [...] portable chest. Workstation ID: [id number] Dictated by: MARZEAN PERSAUD on WedDec 31, 2023 9:10:25 PM EDT Transcribed by: MARZENA PERSAUD on WedDec 31, 2023 9:10:25 PM EDT Finalized by: MARZENA PERSAUD on WedDec 31, 2023 9:10:25 PM EDT [facility] Comment on above: Order Comment: Injur y/Trauma or Illness?:Illness/OtherHow long have you had these symptoms (acute/chronic)?:AcuteReason for exam?:chest pain that started 1 hr agoHistory of cancer?:nSurgeries, chemotherapy, or radiation?:yesType of Exam?:InitialAdditional signs and symptoms?:. XR Chest PA and Abdomen APon 12-31-2023 Nonacute portable chest. Workstation ID: [id number] [place] EXAMINATION: XR CHEST PA/AP 12/31/2023 9:04 pm [...] pneumothorax is noted. LINX implant is noted. [employer] RIS Marzena Persaud, DO - 12/31/2023 EXAMINATION: [...] IMPRESSION: Nonacute portable chest. Workstation ID: [id number] [facility] Radiology Study observation (narrative) [facility] XR Chest PA and Abdomen APOr dered By: Marzena Persaud on 12-31-2023 [facility] Work Phone: CT CERVICAL SPINE WO IV CONT RASTon 11-17-2023 CT CERVICAL SPINE WO IV CONTRAST Interpreted By: Otis Prather, STUDY: CT CERVICAL SPINE WO IV CONTRAST; 11/17/2023 5:38 pm INDICATION: Signs/Symptoms:fall with pain. COMPARISON: CT cervical spine 08/25/2023 ACCESSION NUMBER(S): [id number] ORDERING CLINICIAN: LARRY EUGENE TECHNIQUE: Axial CT [...] Otis Prather 11/17/2023 5:56 PM Dictation workstation: [id number] [facility] CT Cervical spine WO contras ton 11-17-2023 No evidence for an acute fracture or subluxation of the cervical spine. MACRO: None Signed by: Otis Prather 11/17/2023 5:56 PM Dictation workstation: [id number] MMODAL Interpreted By: Otis Love, STUDY: CT CERVICAL SPINE WO IV CONTRAST; 11/17/2023 5:38 pm INDICATION: Signs/Symptoms:fall with pain. COMPARISON: CT cervical spine 08/25/2023 ACCESSION NUMBER(S): [id number] ORDERING CLINICIAN: LARRY EUGENE TECHNIQUE: Axial CT [...] COMPARISON: CT cervical spine 08/25/2023 ACCESSION NUMBER(S): [id number] ORDERING CLINICIAN: LARRY EUGENE TECHNIQUE: Axial CT [...] Otis Prather 11/17/2023 5:56 PM Dictation workstation: [id number] [facility] Work Phone: CT Cervical spine WO contras tOrdered By: Otis Prather on 11-17-2023 [facility] Work Phone: CT LUMBAR SPINE WO IV CONTRA STon 11-17-2023 CT LUMBAR SPINE WO IV CONTRAST STUDY: CT Thoracic Spine and Lumbar Spine without IV Contrast; 11/17/2023 5:40 PM INDICATION: Trauma/fall with pain. COMPARISON: None Available. ACCESSION NUMBER(S): [id number], [id number] ORDERING CLINICIAN: LARRY EUGENE TECHNIQUE: CT of [...] or fibrosis. Signed by Tenisha Richards MD [facility] CT THORACIC SPINE WO IV CONT Prakash 11-17-2023 CT THORACIC SPINE WO IV CONTRAST STUDY: CT Thoracic Spine and Lumbar Spine without IV Contrast; 11/17/2023 5:40 PM INDICATION: Trauma/fall with pain. COMPARISON: None Available. ACCESSION NUMBER(S): [id number], [id number] ORDERING CLINICIAN: LARRY EUGENE TECHNIQUE: CT of [...] or fibrosis. Signed by Tenisha Richards MD [facility] No Panel Informationon 11-17 No evidence of acute fracture or subluxation. No significant degenerative neural canal narrowing. Interstitial changes posteriorly in both lung bases most likely representing atelectasis or fibrosis. Signed by Tenisha Richards MD TELERADIOLOGY STUDY: CT Thoracic Spine and Lumbar Spine without IV Contrast; 11/17/2023 5:40 PM INDICATION: Trauma/fall with pain. COMPARISON: None Available. ACCESSION NUMBER(S): [id number], [id number] ORDERING CLINICIAN: LARRY EUGENE TECHNIQUE: CT of [...] with pain. COMPARISON: None Available. ACCESSION NUMBER(S): [id number], [id number] ORDERING CLINICIAN: LARRY EUGENE TECHNIQUE: CT of [...] or fibrosis. Signed by Tenisha Richards MD [facility] Work Phone: Radiology Study observation (narrative) [facility] Work Phone: No Panel InformationOrdered By: Tenisha Richards on 11-17-2023 [facility] Work Phone: CARDIOLOGY INTERPRETATION OF NUCLEAR STRESSon 10-05-2023 CARDIOLOGY INTERPRETATION [place] [address] [phone], Nuclear Pharmacologic Stress Test Patient Name: REEMA SHAH Ordering Provider: [id number] HAYWOOD Study Date: 10/05/2023 Reading Physician: Funmilayo Haywood MD MRN/PID: [id number] Supervising Physician: Funmilayo Haywood MD Fellow: Date of /Age: 11 1975 Fellow: years Gender: F Nurse: NA Admit Date: 10/05/2023 Mushroom Farmer: Otis Becerra CUTTER HOT KNIFE Admission Status: Outpatient Organ Teacher: FLYNN Height: 139.70 cm Technologist: Weight: 72.58 kg Additional Staff: BSA: 1.59 m2 BMI: 37.19 kg/m2 Patient Location: [facility] Stress Lab Study Type: CARDIOLOGY INTERPRETATION OF [...] 5. Nuclear image results are reported separately. [id number] Everett Haywood MD Electronically signed on 10/05/2023 at 3:52:51 PM Final [facility] NM Heart Perfusion W stress and [...] as stated. This study was interpreted at [facility], [place], [place]. MACRO: None Signed by: Lesly Herrera 10/05/2023 11:36 AM Dictation workstation: [id number] MMODAL Interpreted By: Lesly Herrera and Osman Sena STUDY: NUCLEAR STRESS TEST; 10/05/2023 10:23 am INDICATION: Signs/Symptoms: 48-year-old female, preop cardiac assessment. COMPARISON: None. ACCESSION NUMBER(S): [id number] ORDERING CLINICIAN: EVERETT HAYWOOD TECHNIQUE: DIVISION OF [...] preop cardiac assessment. COMPARISON: None. ACCESSION NUMBER(S): [id number] ORDERING CLINICIAN: EVERETT HAYWOOD TECHNIQUE: DIVISION OF [...] as stated. This study was interpreted at [facility], [place], [place]. MACRO: None Signed by: Lesly Herrera 10/05/2023 11:36 AM Dictation workstation: [id number] [facility] Work Phone: Radiology Study observation (narrative) [facility] Work Phone: NM Heart Perfusion W stress and W radionuclide IVOrdered By: Lesly Herrera on 10-05-2023 [facility] Work Phone: NUCLEAR STRESS TESTon 2022 NUCLEAR STRESS TEST Interpreted By: Lesly Herrera and Osman Sena STUDY: NUCLEAR STRESS TEST; 10/05/2023 10:23 am INDICATION: Signs/Symptoms: 48-year-old female, preop cardiac assessment. COMPARISON: None. ACCESSION NUMBER(S): [id number] ORDERING CLINICIAN: EVERETT HAYWOOD TECHNIQUE: DIVISION OF [...] as stated. This study was interpreted at [facility], [place], [place]. MACRO: None Signed by: Lesly Herrera 10/05/2023 11:36 AM Dictation workstation: [id number] Normal [facility] No Panel Informationon 10-05 [place] [address] [phone], Nuclear Pharmacologic Stress Test Patient Name: REEMA SHAH Ordering Provider: [id number] HAYWOOD Study Date: 10/05/2023 Reading Physician: [id number] Haywood MD MRN/PID: [id number] Supervising Physician: [id number] Haywood MD Fellow: Date of /Age: 11 1975 Fellow: years Gender: F Nurse: FLYNN Admit Date: 10/05/2023 Mushroom Farmer: Otis Becerra CUTTER HOT KNIFE Admission Status: Outpatient Organ Teacher: FLYNN Height: 139.70 cm Technologist: Weight: 72.58 kg Additional Staff: BSA: 1.59 m2 BMI: 37.19 kg/m2 Patient Location: [facility] Stress Lab Study Type: CARDIOLOGY INTERPRETATION OF [...] 5. Nuclear image results are reported separately. [id number] Everett Haywood MD Electronically signed on 10/05/2023 at 3:52:51 PM Final Everett Graf MD - 10/05/2023 [place] [address] [phone], Nuclear Pharmacologic Stress Test Patient Name: REEMA SHAH Ordering Provider: [id number] HAYWOOD Study Date: 10/05/2023 Reading Physician: Funmilayo Haywood MD MRN/PID: [id number] Supervising Physician: Funmilayo Haywood MD Fellow: Date of /Age: 11 1975 Fellow: years Gender: F Nurse: NA Admit Date: 10/05/2023 Mushroom Farmer: Otis Becerra RRT Admission Status: Outpatient Organ Teacher: FLYNN Height: 139.70 cm Technologist: Weight: 72.58 kg Additional Staff: BSA: 1.59 m2 BMI: 37.19 kg/m2 Patient Location: [facility] Stress Lab Study Type: CARDIOLOGY INTERPRETATION OF [...] 5. Nuclear image results are reported separately. [id number] Everett Haywood MD Electronically signed on 10/05/2023 at 3:52:51 PM Final [facility] Work Phone: No Panel InformationOrdered By: Everett Haywood on 10-05-2023 [facility] Work Phone: CT HEAD WO IV CONTRASTon CT HEAD WO IV CONTRAST Interpreted By: Ky Ackerman, STUDY: CT HEAD WO IV CONTRAST 09/16/2023 9:48 am INDICATION: Signs/Symptoms:HEAD INJURY COMPARISON: 08/25/2023 ACCESSION NUMBER(S): [id number] ORDERING CLINICIAN: DIMAS LIN TECHNIQUE: Contiguous axial [...] Ky Ackerman 09/16/2023 10:18 AM Dictation workstation: [id number] [facility] CT Head WO contraston 2022 No acute intracrania l pathology. Signed by: Ky Ackerman 09/16/2023 10:18 AM Dictation workstation: [id number] [facility] Interpreted By: Ky Smart, STUDY: CT HEAD WO IV CONTRAST 09/16/2023 9:48 am INDICATION: Signs/Symptoms:HEAD INJURY COMPARISON: 08/25/2023 ACCESSION NUMBER(S): [id number] ORDERING CLINICIAN: DIMAS LIN TECHNIQUE: Contiguous axial [...] INDICATION: Signs/Symptoms:HEAD INJURY COMPARISON: 08/25/2023 ACCESSION NUMBER(S): [id number] ORDERING CLINICIAN: DIMAS LIN TECHNIQUE: Contiguous axial [...] Ky Ackerman 09/16/2023 10:18 AM Dictation workstation: [id number] [facility] Work Phone: Radiology Study observation (narrative) [facility] Work Phone: CT Head WO contrastOrdered B y: Ky Ackerman on 09-16-2023 [facility] Work Phone: XR ELBOW RIGHT 3+ VIEWSon XR ELBOW RIGHT 3+ VIEWS Interpreted By: Ky Ackerman, STUDY: XR ELBOW RIGHT 3+ VIEWS; 09/16/2023 9:57 am INDICATION: Signs/Symptoms:TRAUMA. COMPARISON: None. ACCESSION NUMBER(S): [id number] ORDERING CLINICIAN: DIMAS LIN FINDINGS: No acute fracture or dislocation of the right elbow. IMPRESSION: No acute osseous findings of the right elbow. Signed by: Ky Ackerman 09/16/2023 10:19 AM Dictation workstation: [id number] [facility] XR Elbow - right 3 Viewson 11-16-2022 No acute osseous findings of the right elbow. Signed by: Ky Ackerman 09/16/2023 10:19 AM Dictation workstation: [id number] [facility] Interpreted By: Ky Smart, STUDY: XR ELBOW RIGHT 3+ VIEWS; 09/16/2023 9:57 am INDICATION: Signs/Symptoms:TRAUMA. COMPARISON: None. ACCESSION NUMBER(S): [id number] ORDERING CLINICIAN: DIMAS LIN FINDINGS: No acute fracture or dislocation of the right elbow. [facility] MM[facility]AL Ky Ackerman MD - 09/16/2023 Interpreted By: Ky Ackerman, STUDY: XR ELBOW RIGHT 3+ VIEWS; 09/16/2023 9:57 am INDICATION: Signs/Symptoms:TRAUMA. COMPARISON: None. ACCESSION NUMBER(S): [id number] ORDERING CLINICIAN: DIMAS LIN FINDINGS: No acute fracture or dislocation of the right elbow. IMPRESSION: No acute osseous findings of the right elbow. Signed by: Ky Ackerman 09/16/2023 10:19 AM Dictation workstation: [id number] [facility] Work Phone: [facility] Work Phone: Radiology Study observation (narrative) [facility] Work Phone: XR Chest 2 Viewson 3 1. No acute cardiopulmonary process. 2. Interval evidence of increased gaping between the beads of LINX device, new on today's radiograph compared to immediate prior radiograph dated 08/25/2023. This could be projectional related to differences in patient positioning. However recommend correlation with patient's symptomatology. Signed by: Christin Oconnor 09/02/2023 10:12 PM Dictation workstation: [id number] [facility] Interpreted By: Christin Oconnor, STUDY: XR CHEST 2 VIEWS; INDICATION: Signs/Symptoms:Preop. COMPARISON: Chest radiograph dated 08/25/2023 ACCESSION NUMBER(S): [id number] ORDERING CLINICIAN: MATTHEW PÉREZ FINDINGS: The cardiac [...] COMPARISON: Chest radiograph dated 08/25/2023 ACCESSION NUMBER(S): [id number] ORDERING CLINICIAN: MATTHEW PÉREZ FINDINGS: The cardiac [...] Christin Oconnor 09/02/2023 10:12 PM Dictation workstation: [id number] [facility] Work Phone: XR Chest 2 ViewsOrdered By: Christin Oconnor on 09-02-2023 [facility] Work Phone: Blood type and Indirect anti body screen panel (Bld)on 09-01-2023 ABO group Nom (Bld) O Normal [facility] Comment on above: Performed By: #### 3 4532-2 #### ANKIT MURPHY ([id number]) [facility] ([facility]) [address] [place] [address] Blood group antibody screen Ql Negative Normal [facility] Comment on above: Performed By: #### 3 4532-2 #### ANKIT MURPHY ([id number]) [facility] ([facility]) [address] [place] [address] D Ag Ql (Bld) Positive Normal [facility] Comment on above: Performed By: #### 3 4532-2 #### ANKIT MURPHY ([id number]) [facility] ([facility]) [address] [place] [address] Comprehensive metabolic 2000 panelon 09-01-2023 Albumin BCP dye [Mass/Vol] 4.4 g/dL Normal 3.4-5.0 [facility] Comment on above: Performed By: #### 2 4323-8 #### ANKIT MURPHY ([id number]) [facility] ([facility]) [address] [place] [address] ALP [Catalytic activity/Vol] 61 U/L Normal 33-110 [facility] Comment on above: Performed By: #### 2 4323-8 #### ANKIT MURPHY ([id number]) [facility] ([facility]) [address] [place] [address] ALT With P-5'-P [Catalytic activity/Vol] 12 U/L Normal 7-45 [facility] Comment on above: Result Comment: Marjan ents treated with Sulfasalazine may generate falsely decreased results for ALT. Performed By: #### 2 4323-8 #### ANKIT MURPHY ([id number]) [facility] ([facility]) [address] [place] [address] Anion gap [Moles/Vol] 13 mmol/L Normal 10-20 [facility] Comment on above: Performed By: #### 2 4322-8 #### ANKIT MURPHY ([id number]) [facility] ([facility]) [address] [place] [address] AST With P-5'-P [Catalytic activity/Vol] 15 U/L Normal 9-39 [facility] Comment on above: Performed By: #### 2 4322-8 #### ANKIT MURPHY ([id number]) [facility] ([facility]) [address] [place] [address] Bilirubin [Mass/Vol] 0.3 mg/dL Normal 0.0-1.2 [facility] Comment on above: Performed By: #### 2 432-8 #### ANKIT MURPHY ([id number]) [facility] ([facility]) [address] [place] [address] Calcium [Mass/Vol] 9.3 mg/dL Normal 8.6-10.3 [facility] Comment on above: Performed By: #### 2 4323-8 #### ANKIT MURPHY ([id number]) [facility] ([facility]) [address] [place] [address] Chloride [Moles/Vol] 102 mmol/L Normal 98-107 [facility] Comment on above: Performed By: #### 2 4323-8 #### ANKIT MURPHY ([id number]) [facility] ([facility]) [address] [place] [address] CO2 [Moles/Vol] 30 mmol/L Normal 21-32 [facility] Comment on above: Performed By: #### 2 4323-8 #### ANKIT MURPHY ([id number]) [facility] ([facility]) [address] [place] [address] Creatinine [Mass/Vol] 1.28 mg/dL High 0.50-1.05 [facility] Comment on above: Performed By: #### 2 4323-8 #### ANKIT MURPHY ([id number]) [facility] ([facility]) [address] [place] [address] GFR/1.73 sq M.predicted MDRD (S/P/Bld) [Vol rate/Area] 51 mL/min/1.73m*2 Low >60 [facility] Comment on above: Result Comment: Calc ulations of estimated GFR are performed using the 2020 CKD-EPI Study Refit equation without the race variable for the IDMS-Traceable creatinine methods. https://jasn.asnjournals.org/content/early/ASN.323008 5147 Performed By: #### 2 4323-8 #### ANKIT MURPHY ([id number]) [facility] ([facility]) [address] [place] [address] Glucose [Mass/Vol] 92 mg/dL Normal 74-99 [facility] Comment on above: Performed By: #### 2 4323-8 #### ANKIT MURPHY ([id number]) [facility] ([facility]) [address] [place] [address] Potassium [Moles/Vol] 4.8 mmol/L Normal 3.5-5.3 [facility] Comment on above: Performed By: #### 2 4323-8 #### ANKIT MURPHY ([id number]) [facility] ([facility]) [facility] [place] [address] Protein [Mass/Vol] 6.7 g/dL Normal 6.4-8.2 [facility] Comment on above: Performed By: #### 2 4323-8 #### ANKIT MURPHY ([id number]) [facility] ([facility]) [address] [place] [address] Sodium [Moles/Vol] 140 mmol/L Normal 136-145 [facility] Comment on above: Performed By: #### 2 4323-8 #### ANKIT MURPHY ([id number]) [facility] ([facility]) [facility] [place] [address] Urea nitrogen [Mass/Vol] 25 mg/dL High 6-23 [facility] Comment on above: Performed By: #### 2 4323-8 #### ANKIT MURPHY ([id number]) [facility] ([facility]) [address] [place] [address] ECG 12 LeadOrdered By: Sg Rushing on 09-01-2023 Atrial Rate 63 BPM [facility] Work Phone: P [place] 38 degrees [facility] Work Phone: P Offset 188 [facility] Work Phone: P Onset 139 [facility] Work Phone: SC Interval 166 ms [facility] Work Phone: Q Onset 222 ms [facility] Work Phone: QRS Count 11 beats [facility] Work Phone: QRS Duration 80 ms [facility] Work Phone: QT Interval 444 [facility] Work Phone: QTC Calculation(Bazett) 454 [facility] Work Phone: QTC Fredericia 451 [facility] Work Phone: R [place] 63 degrees [facility] Work Phone: T [place] 70 degrees [facility] Work Phone: T Offset 444 [facility] Work Phone: Ventricular Rate [address] [facility] Work Phone: [facility] Work Phone: ECG 12 Leadon 09-01-2023 Normal sinus rhythm Possible Anterior infarct (cited on or before 01-SEP-2023) Abnormal ECG When compared with ECG of 01-SEP-2023 08:11, (unconfirmed) No significant change was found Confirmed by Solo Rushing ([id number]) on 09/01/2023 11:03:57 AM MUSE Solo Rushing MD - 09/01/2023 Normal sinus rhythm Possible Anterior infarct (cited on or before 01-SEP-2023) Abnormal ECG When compared with ECG of 01-SEP-2023 08:11, (unconfirmed) No significant change was found Confirmed by Solo Rushing ([id number]) on 09/01/2023 11:03:57 AM [facility] Work Phone: ECG 12-LEADon 09-01-2023 ECG 12-LEAD Ventricular Rate 63 Atrial Rate 63 P-R Interval 166 QRS Duration 80 Q-T Interval 444 QTC Calculation(Bazett) 454 P [place] 38 R [place] 63 T [place] 70 QRS Count 11 Q Onset 222 P Onset 139 P Offset 188 T Offset 444 QTC Fredericia 451 Diagnosis Normal sinus rhythm Possible Anterior infarct (cited on or before 01-SEP-2023) Abnormal ECG When compared with ECG of 01-SEP-2023 08:11, (unconfirmed) No significant change was found Confirmed by Solo Rushing ([id number]) on 09/01/2023 11:03:57 AM Normal [facility] HbA1c (Bld) [Mass fraction]o n 09-01-2023 Average glucose Estimated from glycated hemoglobin (Bld) [Mass/Vol] 91 mg/dL Normal Not Established [facility] Comment on above: Order Comment: Diagn osis of Diabetes-Adults Non-Diabetic: < or = 5.6% Increased risk for developing diabetes: 5.7-6.4% Diagnostic of diabetes: > or = 6.5% Monitoring of Diabetes Age (y)....................... Therapeutic Goal (%) Adults: >18.........................<7.0 Pediatrics: 13-18...................<7.5 Pediatrics: 7-12....................<8.0 Pediatrics: 0-6..................... 7.5-8.5 [employer]. Diabetes Care 33(S1), Oct 2009 Performed By: #### 4 548-4 #### ANKIT MURPHY ([id number]) [facility] ([facility]) [address] [place] [address] Hemoglobin A1c/Hemoglobin.to kj 09-01-2023 HbA1c (Bld) [Mass fraction] 4.8 % Normal see below [facility] Comment on above: Order Comment: Diagn osis of Diabetes-Adults Non-Diabetic: < or = 5.6% Increased risk for developing diabetes: 5.7-6.4% Diagnostic of diabetes: > or = 6.5% Monitoring of Diabetes Age (y)....................... Therapeutic Goal (%) Adults: >18.........................<7.0 Pediatrics: 13-18...................<7.5 Pediatrics: 7-12....................<8.0 Pediatrics: 0-6..................... 7.5-8.5 [employer]. Diabetes Care 33(S1), Oct 2009 Performed By: #### 4 548-4 #### ANKIT MURPHY ([id number]) [facility] ([facility]) [address] [place] [address] XR CHEST 2 VIEWSon 3 XR CHEST 2 VIEWS Interpreted By: Christin Oconnor, STUDY: XR CHEST 2 VIEWS; INDICATION: Signs/Symptoms:Preop. COMPARISON: Chest radiograph dated 08/25/2023 ACCESSION NUMBER(S): [id number] ORDERING CLINICIAN: MATTHEW PÉREZ FINDINGS: The cardiac [...] Christin Oconnor 09/02/2023 10:12 PM Dictation workstation: [id number] [facility] XR Chest 2 Viewson 3 Radiology Study observation (narrative) [facility] Work Phone: CT CERVICAL SPINE WO IV CONT [facility] 08-25-2023 CT CERVICAL SPINE WO IV CONTRAST Interpreted By: Omar Castaneda, STUDY: CT HEAD WO IV CONTRAST; CT CERVICAL SPINE WO IV CONTRAST; 08/25/2023 12:01 pm INDICATION: Trauma. Signs/Symptoms:FALL. COMPARISON: January 22, 2020 and July 15, [address] examinations. January 21, 2023 CT cervical spine. ACCESSION NUMBER(S): [id number]; [id number] ORDERING CLINICIAN: ABHI RICHARDS TECHNIQUE: Axial noncontrast [...] care surgeons. J Trauma Acute Care Surg. 2014;76:289o421. IMPRESSION: No acute intracranial abnormality was identified. No detected fracture. Stable CT findings as reported. MACRO: None Signed by: Omar Castaneda 08/25/2023 12:24 PM Dictation workstation: [id number] [facility] CT HEAD WO IV CONTRASTon CT HEAD WO IV CONTRAST Interpreted By: Omar Castaneda, STUDY: CT HEAD WO IV CONTRAST; CT CERVICAL SPINE WO IV CONTRAST; 08/25/2023 12:01 pm INDICATION: Trauma. Signs/Symptoms:FALL. COMPARISON: January 22, 2020 and July 15, [address] examinations. January 21, 2023 CT cervical spine. ACCESSION NUMBER(S): [id number]; [id number] ORDERING CLINICIAN: ABHI RICHARDS TECHNIQUE: Axial noncontrast [...] care surgeons. J Trauma Acute Care Surg. 2014;76:823x050. IMPRESSION: No acute intracranial abnormality was identified. No detected fracture. Stable CT findings as reported. MACRO: None Signed by: Omar Castaneda 08/25/2023 12:24 PM Dictation workstation: [id number] [facility] No Panel Informationon 08-25 No acute intracrania l abnormality was identified. No detected fracture. Stable CT findings as reported. MACRO: None Signed by: Omar Castaneda 08/25/2023 12:24 PM Dictation workstation: [id number] [facility]AL Interpreted By: Omar Castaneda, STUDY: CT HEAD WO IV CONTRAST; CT CERVICAL SPINE WO IV CONTRAST; 08/25/2023 12:01 pm INDICATION: Trauma. Signs/Symptoms:FALL. COMPARISON: January 22, 2020 and July 15, [address] examinations. January 21, 2023 CT cervical spine. ACCESSION NUMBER(S): [id number]; [id number] ORDERING CLINICIAN: ABHI RICHARDS TECHNIQUE: Axial noncontrast [...] care surgeons. J Trauma Acute Care Surg. 2014;76:024v098. MMODAL Omar Castaneda MD - 08/25/2023 Interpreted By: Omar Castaneda, STUDY: CT HEAD WO IV CONTRAST; CT CERVICAL SPINE WO IV CONTRAST; 08/25/2023 12:01 pm INDICATION: Trauma. Signs/Symptoms:FALL. COMPARISON: January 22, 2020 and July 15, [address] examinations. January 21, 2023 CT cervical spine. ACCESSION NUMBER(S): [id number]; [id number] ORDERING CLINICIAN: ABHI RICHARDS TECHNIQUE: Axial noncontrast [...] care surgeons. J Trauma Acute Care Surg. 2014;76:710j300. IMPRESSION: No acute intracranial abnormality was identified. No detected fracture. Stable CT findings as reported. MACRO: None Signed by: Omar Castaneda 08/25/2023 12:24 PM Dictation workstation: [id number] [facility] Work Phone: Radiology Study observation (narrative) [facility] Work Phone: No Panel InformationOrdered By: Omar Castaneda on 08-25-2023 [facility] Work Phone: XR RIBS RIGHT 2 VIEWS WITH C HEST ANTEROPOSTERIORon 08-25-2023 XR RIBS RIGHT 2 VIEWS WITH CHEST ANTEROPOSTERIOR Interpreted By: Omar Castaneda, STUDY: XR RIBS RIGHT 2 VIEWS WITH CHEST ANTEROPOSTERIOR; ; 08/25/2023 12:08 pm INDICATION: Signs/Symptoms:FALL. COMPARISON: August 13, 2023 chest radiograph. ACCESSION NUMBER(S): [id number] ORDERING CLINICIAN: ABHI RICHARDS FINDINGS: Five views are submitted. The lungs are clear. Unchanged cardiomediastinal silhouette. No significant change distal esophageal LINX device. No detected fracture. Visualized portion of the abdomen is unremarkable. IMPRESSION: No acute detected abnormality. MACRO: None Signed by: Omar Castaneda 08/25/2023 12:26 PM Dictation workstation: [id number] [facility] XR Ribs - right 2 Viewson No acute detected abnormality. MACRO: None Signed by: Omar Castaneda 08/25/2023 12:26 PM Dictation workstation: [id number] Interpreted By: Omar Castaneda, STUDY: XR RIBS RIGHT 2 VIEWS WITH CHEST ANTEROPOSTERIOR; ; 08/25/2023 12:08 pm INDICATION: Signs/Symptoms:FALL. COMPARISON: August 13, 2023 chest radiograph. ACCESSION NUMBER(S): [id number] ORDERING CLINICIAN: ABHI RICHARDS FINDINGS: Five views [...] August 13, 2023 chest radiograph. ACCESSION NUMBER(S): [id number] ORDERING CLINICIAN: ABHI RICAHRDS FINDINGS: Five views are submitted. The lungs are clear. Unchanged cardiomediastinal silhouette. No significant change distal esophageal LINX device. No detected fracture. Visualized portion of the abdomen is unremarkable. IMPRESSION: No acute detected abnormality. MACRO: None Signed by: Omar Castaneda 08/25/2023 12:26 PM Dictation workstation: [id number] [facility] Work Phone: [facility] Work Phone: Radiology Study observation (narrative) [facility] Work Phone: XR SACRUM COCCYX 2+ VIEWSon 08-25-2023 XR SACRUM COCCYX 2+ VIEWS Interpreted By: Omar Castaneda, STUDY: XR SACRUM COCCYX 2+ VIEWS; ; 08/25/2023 12:08 pm INDICATION: Signs/Symptoms:FALL. COMPARISON: None. ACCESSION NUMBER(S): [id number] ORDERING CLINICIAN: ABHI RICHARDS FINDINGS: Frontal and lateral views are submitted. Four views obtained. No detected fracture or subluxation. Heights of the visualized vertebra are maintained. Sacroiliac joints appear unremarkable. IMPRESSION: No detected fracture. MACRO: None Signed by: Omar Castaneda 08/25/2023 12:28 PM Dictation workstation: [id number] [facility] XR SHOULDER RIGHT 2+ VIEWSon 08-25-2023 XR SHOULDER RIGHT 2+ VIEWS Interpreted By: Omar Castaneda, STUDY: XR SHOULDER RIGHT 2+ VIEWS; ; 08/25/2023 12:07 pm INDICATION: Signs/Symptoms:FALL. COMPARISON: August 13, 2023 chest radiograph ACCESSION NUMBER(S): [id number] ORDERING CLINICIAN: ABHI RICHARDS FINDINGS: Two views demonstrate no detected fracture or dislocation. Mild degenerative spur acromioclavicular joint appears stable. No unusual periarticular abnormalities. IMPRESSION: No detected fracture or dislocation. MACRO: None Signed by: Omar Castaneda 08/25/2023 12:27 PM Dictation workstation: [id number] [facility] XR Sacrum and Coccyx 2 Views on 08-25-2023 No detected fracture . MACRO: None Signed by: Omar Castaneda 08/25/2023 12:28 PM Dictation workstation: [id number] [facility]AL Interpreted By: Omar Castaneda, STUDY: XR SACRUM COCCYX 2+ VIEWS; ; 08/25/2023 12:08 pm INDICATION: Signs/Symptoms:FALL. COMPARISON: None. ACCESSION NUMBER(S): [id number] ORDERING CLINICIAN: ABHI RICHARDS FINDINGS: Frontal and lateral views are submitted. Four views obtained. No detected fracture or subluxation. Heights of the visualized vertebra are maintained. Sacroiliac joints appear unremarkable. [facility] MMODAL Omar Castaneda MD - 08/25/2023 Interpreted By: Omar Castaneda, STUDY: XR SACRUM COCCYX 2+ VIEWS; ; 08/25/2023 12:08 pm INDICATION: Signs/Symptoms:FALL. COMPARISON: None. ACCESSION NUMBER(S): [id number] ORDERING CLINICIAN: ABHI RICHARDS FINDINGS: Frontal and lateral views are submitted. Four views obtained. No detected fracture or subluxation. Heights of the visualized vertebra are maintained. Sacroiliac joints appear unremarkable. IMPRESSION: No detected fracture. MACRO: None Signed by: Omar Castaneda 08/25/2023 12:28 PM Dictation workstation: [id number] [facility] Work Phone: [facility] Work Phone: Radiology Study observation (narrative) [facility] Work Phone: XR Shoulder - right 2 Viewso n 08-25-2023 No detected fracture or dislocation. MACRO: None Signed by: Omar Castaneda 08/25/2023 12:27 PM Dictation workstation: [id number] [facility] Interpreted By: Omar Castaneda, STUDY: XR SHOULDER RIGHT 2+ VIEWS; ; 08/25/2023 12:07 pm INDICATION: Signs/Symptoms:FALL. COMPARISON: August 13, 2023 chest radiograph ACCESSION NUMBER(S): [id number] ORDERING CLINICIAN: ABHI RICHARDS FINDINGS: Two views demonstrate no detected fracture or dislocation. Mild degenerative spur acromioclavicular joint appears stable. No unusual periarticular abnormalities. [facility] Omar Castaneda MD - 08/25/2023 Interpreted By: Omar Castaneda, STUDY: XR SHOULDER RIGHT 2+ VIEWS; ; 08/25/2023 12:07 pm INDICATION: Signs/Symptoms:FALL. COMPARISON: August 13, 2023 chest radiograph ACCESSION NUMBER(S): [id number] ORDERING CLINICIAN: ABHI RICHARDS FINDINGS: Two views demonstrate no detected fracture or dislocation. Mild degenerative spur acromioclavicular joint appears stable. No unusual periarticular abnormalities. IMPRESSION: No detected fracture or dislocation. MACRO: None Signed by: Omar Castaneda 08/25/2023 12:27 PM Dictation workstation: [id number] [facility] Work Phone: [facility] Work Phone: Radiology Study observation (narrative) [facility] Work Phone: Bacteria identifiedon 2022 Bacteria identified Cx Nom (U) Test: Urine Culture Specimen Source: Clean Catch/Voided Specimen Type: Urine Specimen Date: 08/13/2023 10:16 AM Result Date: 08/14/2023 2:21 PM Result Status: Final result Abnormal: No Resulting Lab: [facility] [address] [place] [address] CULTURE No growth Normal [facility] Comment on above: Performed By: #### 2 4321-2 #### ANKIT MURPHY ([id number]) [facility] ([facility]) [address] [place] [address] CBC W Auto Differential pane l (Bld)on 08-13-2023 Basophils (Bld) [#/Vol] 0.02 10*3/uL [facility] Basophils/100 WBC (Bld) 0.4 % 0.0 - 2.0 % [facility] Eosinophils (Bld) [#/Vol] 0.14 10*3/uL [facility] Eosinophils/100 WBC (Bld) 2.7 % 0.0 - 6.0 % [facility] Erythrocyte distribution width (RBC) [Ratio] 12.2 % 11.5 - 14.5 % [facility] Hematocrit (Bld) [Volume fraction] 40.6 % 36.0 - 46.0 % [facility] Hemoglobin (Bld) [Mass/Vol] 13.9 g/dL 12.0 - 16.0 g/dL [facility] Immature granulocytes (Bld) [#/Vol] 0.03 10*3/uL [facility] Immature granulocytes/100 WBC (Bld) 0.6 % 0.0 - 0.9 % [facility] Comment on above: Immature Granulocyte Count (IG) includes promyelocytes, myelocytes and metamyelocytes but does not include bands. Percent differential counts (%) should be interpreted in the context of the absolute cell counts (cells/UL). Interpretation and review of laboratory results Abnormal [facility] Lymphocytes (Bld) [#/Vol] 1.78 10*3/uL [facility] [facility] Lymphocytes/100 WBC (Bld) 33.8 % 13.0 - 44.0 % [facility] MCH (RBC) [Entitic mass] 31.3 pg 26.0 - 34.0 pg [facility] MCHC (RBC) [Mass/Vol] 34.2 g/dL 32.0 - 36.0 g/dL [facility] MCV (RBC) [Entitic vol] 91 fL 80 - 100 fL [facility] Monocytes (Bld) [#/Vol] 0.42 10*3/uL [facility] Monocytes/100 WBC (Bld) 8.0 % 2.0 - 10.0 % [facility] Neutrophils (Bld) [#/Vol] 2.87 10*3/uL [facility] Comment on above: Percent differential counts (%) should be interpreted in the context of the absolute cell counts (cells/uL). Neutrophils/100 WBC (Bld) 54.5 % 40.0 - 80.0 % [facility] Nucleated RBC/100 WBC (Bld) [Ratio] 0.0 % [facility] Platelet mean volume (Bld) [Entitic vol] 10.7 fL 7.5 - 11.5 fL [facility] Platelets (Bld) [#/Vol] 99 10*3/uL Low [facility] Comment on above: Platelet count verif ied by smear review. no plt clumps or clots seen RBC (Bld) [#/Vol] 4.44 10*6/uL [facility] WBC (Bld) [#/Vol] 5.3 10*3/uL [facility] Basophils (Bld) [#/Vol] 0.02 x10*3/uL Normal 0.00-0.10 [facility] Comment on above: Performed By: #### 5 7021-8 #### ANKIT MURPHY ([id number]) [facility] ([facility]) [address] [place] [address] 34237 Basophils/100 WBC (Bld) 0.4 % Normal 0.0-2.0 [facility] Comment on above: Performed By: #### 5 7021-8 #### ANKIT MURPHY ([id number]) [facility] ([facility]) [address] [place] [address] 79703 Eosinophils (Bld) [#/Vol] 0.14 x10*3/uL Normal 0.00-0.70 [facility] Comment on above: Performed By: #### 5 7021-8 #### ANKIT MURPHY ([id number]) [facility] ([facility]) [address] [place] [address] 36186 Eosinophils/100 WBC (Bld) 2.7 % Normal 0.0-6.0 [facility] Comment on above: Performed By: #### 5 7021-8 #### ANKIT MURPHY ([id number]) [facility] ([facility]) [address] [place] [address] Erythrocyte distribution width (RBC) [Ratio] 12.2 % Normal 11.5-14.5 [facility] Comment on above: Performed By: #### 5 7021-8 #### ANKIT MURPHY ([id number]) [facility] ([facility]) [address] [place] [address] Hematocrit (Bld) [Volume fraction] 40.6 % Normal 36.0-46.0 [facility] Comment on above: Performed By: #### 5 7021-8 #### ANKIT MURPHY ([id number]) [facility] ([facility]) [address] [place] [address] Hemoglobin (Bld) [Mass/Vol] 13.9 g/dL Normal 12.0-16.0 [facility] Comment on above: Performed By: #### 5 7021-8 #### ANKIT MURPHY ([id number]) [facility] ([facility]) [address] [place] [address] Immature granulocytes (Bld) [#/Vol] 0.03 x10*3/uL Normal 0.00-0.70 [facility] Comment on above: Performed By: #### 5 7021-8 #### ANKIT MURPHY ([id number]) [facility] ([facility]) [address] [place], [place] [id number] Immature granulocytes/100 WBC (Bld) 0.6 % Normal 0.0-0.9 [facility] Comment on above: Result Comment: Suze ture Granulocyte Count (IG) includes promyelocytes, myelocytes and metamyelocytes but does not include bands. Percent differential counts (%) should be interpreted in the context of the absolute cell counts (cells/UL). Performed By: #### 5 7021-8 #### ANKIT MURPHY ([id number]) [facility] ([facility]) [address] [place], [place] [address] Lymphocytes (Bld) [#/Vol] 1.78 x10*3/uL Normal 1.20-4.80 [facility] Comment on above: Performed By: #### 5 7021-8 #### ANKIT MURPHY ([id number]) [facility] ([facility]) [address] [place] [address] 97359 Lymphocytes/100 WBC (Bld) 33.8 % Normal 13.0-44.0 [facility] Comment on above: Performed By: #### 5 7021-8 #### ANKIT MURPHY ([id number]) [facility] ([facility]) [address] [place] [address] 20701 MCH (RBC) [Entitic mass] 31.3 pg Normal 26.0-34.0 [facility] Comment on above: Performed By: #### 5 7021-8 #### ANKIT MURPHY ([id number]) [facility] ([facility]) [address] [place] [address] 26432 MCHC (RBC) [Mass/Vol] 34.2 g/dL Normal 32.0-36.[address] [facility] Comment on above: Performed By: #### 5 7021-8 #### ANKIT MURPHY ([id number]) [facility] ([facility]) [address] [place] [address] 03407 MCV (RBC) [Entitic vol] 91 fL Normal 80-100 [facility] Comment on above: Performed By: #### 5 7021-8 #### ANKIT MURPHY ([id number]) [facility] ([facility]) [address] [place] [address] 15514 Monocytes (Bld) [#/Vol] 0.42 x10*3/uL Normal 0.10-1.00 [facility] Comment on above: Performed By: #### 5 7021-8 #### ANKIT MURPHY ([id number]) [facility] ([facility]) [address] [place] [address] 02865 Monocytes/100 WBC (Bld) 8.0 % Normal 2.0-10.0 [facility] Comment on above: Performed By: #### 5 7021-8 #### ANKIT MURPHY ([id number]) [facility] ([facility]) [address] [place] [address] 23448 Neutrophils (Bld) [#/Vol] 2.87 x10*3/uL Normal 1.20-7.70 [facility] Comment on above: Result Comment: Perc ent differential counts (%) should be interpreted in the context of the absolute cell counts (cells/uL). Performed By: #### 5 7021-8 #### ANKIT MURPHY ([id number]) [facility] ([facility]) [address] [place] [address] 86302 Neutrophils/100 WBC (Bld) 54.5 % Normal 40.0-80.0 [facility] Comment on above: Performed By: #### 5 7021-8 #### ANKIT MURPHY ([id number]) [facility] ([facility]) [address] [place] [address] 77693 Nucleated RBC/100 WBC (Bld) [Ratio] 0.0 /100 WBCs Normal 0.0-0.0 [facility] Comment on above: Performed By: #### 5 7021-8 #### ANKIT MURPHY ([id number]) [facility] ([facility]) [address] [place] [address] 57610 Platelet mean volume (Bld) [Entitic vol] 10.7 fL Normal 7.5-11.5 [facility] Comment on above: Performed By: #### 5 7021-8 #### ANKIT MURPHY ([id number]) [facility] ([facility]) [address] [place] [address] 48548 Platelets (Bld) [#/Vol] 99 x10*3/uL Low 150-450 [facility] Comment on above: Result Comment: Plat elet count verified by smear review. no plt clumps or clots seen Performed By: #### 5 7021-8 #### ANKIT MURPHY ([id number]) [facility] ([facility]) [address] [place] [address] 82223 RBC (Bld) [#/Vol] 4.44 x10*6/uL Normal 4.00-5.20 [facility] Comment on above: Performed By: #### 5 7021-8 #### ANKIT MURPHY ([id number]) [facility] ([facility]) [address] [place] [address] WBC (Bld) [#/Vol] 5.3 x10*3/uL Normal 4.4-11.3 [facility] Comment on above: Performed By: #### 5 7021-8 #### ANKIT MURPHY ([id number]) [facility] ([facility]) [address] [place] [address] Comprehensive metabolic 2000 panelon 08-13-2023 Albumin BCP dye [Mass/Vol] 4.1 g/dL 3.4 - 5.0 g/dL [facility] ALP [Catalytic activity/Vol] 65 U/L 33 - 110 U/L [facility] ALT With P-5'-P [Catalytic activity/Vol] 14 U/L 7 - 45 U/L [facility] Comment on above: Patients treated wit h Sulfasalazine may generate falsely decreased results for ALT. Anion gap [Moles/Vol] 13 mmol/L 10 - 2 0 mmol/L [facility] AST With P-5'-P [Catalytic activity/Vol] 16 U/L 9 - 39 U/L [facility] Bilirubin [Mass/Vol] 0.3 mg/dL 0.0 - 1 .2 mg/dL [facility] Calcium [Mass/Vol] 9.1 mg/dL 8.6 - 10. 3 mg/dL [facility] Chloride [Moles/Vol] 104 mmol/L 98 - 10 7 mmol/L [facility] CO2 [Moles/Vol] 23 mmol/L 21 - 32 mmol/L [facility] Creatinine [Mass/Vol] 1.28 mg/dL High 0.50 - 1.05 mg/dL [facility] GFR/1.73 sq M.predicted MDRD (S/P/Bld) [Vol rate/Area] 51 mL/min/{1.73_m2} Low - PINF [facility] Comment on above: Calculations of frieda mated GFR are performed using the 2020 CKD-EPI Study Refit equation without the race variable for the IDMS-Traceable creatinine methods. https://jasn.asnjournals.org/content//ASN.174500 1428 Glucose [Mass/Vol] 133 mg/dL High 74 - 99 mg/dL [facility] Interpretation and review of laboratory results Abnormal [facility] Potassium [Moles/Vol] 3.7 mmol/L 3.5 - 5.3 mmol/L [facility] Protein [Mass/Vol] 6.2 g/dL Low 6.4 - 8.2 g/dL [facility] Sodium [Moles/Vol] 136 mmol/L 136 - 145 mmol/L [facility] Urea nitrogen [Mass/Vol] 24 mg/dL High 6 - 23 mg/dL [facility] Albumin BCP dye [Mass/Vol] 4.1 g/dL Normal 3.4-5.0 [facility] Comment on above: Performed By: #### 2 4323-8 #### ANKIT MURPHY ([id number]) [facility] ([facility]) [address] [place] [address] ALP [Catalytic activity/Vol] 65 U/L Normal 33-110 [facility] Comment on above: Performed By: #### 2 4323-8 #### ANKIT MURPHY ([id number]) [facility] ([facility]) [address] [place] [address] 83023 ALT With P-5'-P [Catalytic activity/Vol] 14 U/L Normal 7-45 [facility] Comment on above: Result Comment: Marjan ents treated with Sulfasalazine may generate falsely decreased results for ALT. Performed By: #### 2 4323-8 #### ANKIT MURPHY ([id number]) [facility] ([facility]) [address] [place] [address] Anion gap [Moles/Vol] 13 mmol/L Normal 10-[address] [facility] Comment on above: Performed By: #### 2 4323-8 #### ANKIT MURPHY ([id number]) [facility] ([facility]) [address] [place] [address] 87975 AST With P-5'-P [Catalytic activity/Vol] 16 U/L Normal 9-39 [facility] Comment on above: Performed By: #### 2 4323-8 #### ANKIT MURPHY ([id number]) [facility] ([facility]) [address] [place] [address] Bilirubin [Mass/Vol] 0.3 mg/dL Normal 0.0-1.2 [facility] Comment on above: Performed By: #### 2 4323-8 #### ANKIT MURPHY ([id number]) [facility] ([facility]) [address] [place] [address] 32123 Calcium [Mass/Vol] 9.1 mg/dL Normal 8.6-10.3 [facility] Comment on above: Performed By: #### 2 432-8 #### ANKIT MURPHY ([id number]) [facility] ([facility]) [address] [place] [address] 74458 Chloride [Moles/Vol] 104 mmol/L Normal 98-107 [facility] Comment on above: Performed By: #### 2 4323-8 #### ANKIT MURPHY ([id number]) [facility] ([facility]) [address] [place] [address] 16110 CO2 [Moles/Vol] 23 mmol/L Normal 21-32 [facility] Comment on above: Performed By: #### 2 4323-8 #### ANKIT MURPHY ([id number]) [facility] ([facility]) [address] [place] [address] 69814 Creatinine [Mass/Vol] 1.28 mg/dL High 0.50-1.[address] [facility] Comment on above: Performed By: #### 2 4323-8 #### ANKIT MURPHY ([id number]) [facility] ([facility]) [address] [place] [address] 52878 GFR/1.73 sq M.predicted MDRD (S/P/Bld) [Vol rate/Area] 51 mL/min/1.73m*2 Low >60 [facility] Comment on above: Result Comment: Calc ulations of estimated GFR are performed using the 2020 CKD-EPI Study Refit equation without the race variable for the IDMS-Traceable creatinine methods. https://jasn.asnjournals.org/content//ASN.068771 3077 Performed By: #### 2 4323-8 #### ANKIT MURPHY ([id number]) [facility] ([facility]) [address] [place] [address] 25070 Glucose [Mass/Vol] 133 mg/dL High 74-99 [facility] Comment on above: Performed By: #### 2 4323-8 #### ANKIT MURPHY ([id number]) [facility] ([facility]) [address] [place] [address] 92932 Potassium [Moles/Vol] 3.7 mmol/L Normal 3.5-5.[address] [facility] Comment on above: Performed By: #### 2 4323-8 #### ANKIT MURPHY ([id number]) [facility] ([facility]) [address] [place] [address] 46694 Protein [Mass/Vol] 6.2 g/dL Low 6.4-8.2 [facility] Comment on above: Performed By: #### 2 4323-8 #### ANKIT MURPHY ([id number]) [facility] ([facility]) [address] [place] [address] 55597 Sodium [Moles/Vol] 136 mmol/L Normal 136-145 [facility] Comment on above: Performed By: #### 2 4323-8 #### ANKIT MURPHY ([id number]) [facility] ([facility]) [address] [place] [address] 44099 Urea nitrogen [Mass/Vol] 24 mg/dL High 6-23 [facility] Comment on above: Performed By: #### 2 4323-8 #### ANKIT MURPHY ([id number]) [facility] ([facility]) [address] [place] [address] 11832 Extra Urine Hill Tubeon 10-2 Extra Tube Hold for add-ons. [facility] Comment on above: Auto resulted. [facility] Lactateon 08-13-2023 Lactate [Moles/Vol] 1.7 mmol/L 0.4 - 2. 0 mmol/L [facility] Lactate [Moles/Vol] 1.7 mmol/L Normal 0.4-2.0 [facility] Comment on above: Order Comment: Venip uncture immediately after or during the administration of Metamizole may lead to falsely low results. Testing should be performed immediately prior to Metamizole dosing. Performed By: #### 2 524-7 #### ANKIT MURPHY ([id number]) [facility] ([facility]) [facility] [place] [address] Lactate [Moles/Vol] 2.5 mmol/L High 0.4 - 2. 0 mmol/L [facility] Lactate [Moles/Vol] 2.5 mmol/L High 0.4-2.0 [facility] Comment on above: Order Comment: Venip uncture immediately after or during the administration of Metamizole may lead to falsely low results. Testing should be performed immediately prior to Metamizole dosing. Performed By: #### 2 524-7 #### ANKIT MURPHY ([id number]) [facility] ([facility]) [address] [place] [address] Lactate [Moles/Vol]on 2022 Interpretation and review of laboratory results Normal [facility] Venipuncture immediately after or during the administration of Metamizole may lead to falsely low results. Testing should be performed immediately prior to Metamizole dosing. [facility] Interpretation and review of laboratory results Abnormal [facility] Venipuncture immediately after or during the administration of Metamizole may lead to falsely low results. Testing should be performed immediately prior to Metamizole dosing. [facility] No Panel Informationon 08-13 Interpretation and review of laboratory results Abnormal [facility] Tropinin I.cardiac panel Hig h sensitivity methodon 08-13-2023 Interpretation and review of laboratory results Normal [facility] Less than 99th percentile of normal range [...] performed using a different testing methodology at [facility] than at other [facility]. Direct result comparisons should only be made within the same method. [facility] Interpretation and review of laboratory results Normal [facility] Less than 99th percentile of normal range [...] performed using a different testing methodology at [facility] than at other [facility]. Direct result comparisons should only be made within the same method. [facility] Troponin I, High Sensitivity , Initialon 08-13-2023 Tropinin I.cardiac panel High sensitivity method 8 ng/L 0 - 13 ng/L [facility] Troponin I.cardiac panelon 1 Tropinin I.cardiac panel High sensitivity method 8 ng/L Normal 0-13 [facility] Comment on above: Order Comment: Less than [...] performed using a different testing methodology at [facility] than at other [facility]. Direct result comparisons should only be made within the same method. Performed By: #### 8 9577-1 #### ANKIT MURPHY ([id number]) [facility] ([facility]) [address] [place], [place] [phone] Tropinin I.cardiac panel High sensitivity method 8 ng/L Normal 0-13 [facility] Comment on above: Order Comment: Less than [...] performed using a different testing methodology at [facility] than at other [facility]. Direct result comparisons should only be made within the same method. Performed By: #### 8 9577-1 #### ANKIT MURPHY ([id number]) [facility] ([facility]) [address] [place], [place] [phone] Troponin, High Sensitivity, 1 Houron 08-13-2023 Tropinin I.cardiac panel High sensitivity method 8 ng/L 0 - 13 ng/L [facility] Urinalysis complete W Reflex Culture panel (U)on 08-13-2023 Appearance (U) Hazy Abnormal Clear [facility] Bilirubin (U) [Mass/Vol] Negative NEGATIVE [facility] Color (U) Yellow Straw, Yellow [facility] Glucose Auto test strip (U) [Mass/Vol] Negative NEGATIVE mg/dL [facility] Ketones (U) [Mass/Vol] Negative NEGATIVE mg/dL [facility] Leukocyte esterase Auto test strip Ql (U) SMALL (1+) Abnormal NEGATIVE [facility] Nitrite Auto test strip Ql (U) Negative NEGATIVE [facility] pH (U) 5.0 [pH] 5.0, 5.5, 6.0, 6.5, 7.0, 7.5, 8.0 [facility] Protein (U) [Mass/Vol] 30 (1+) Abnormal NEGATIVE mg/dL [facility] RBC (U) [#/Vol] Negative NEGATIVE [facility] Specific gravity (U) [Rel density] 1.020 1.005 - 1.035 [facility] Urobilinogen (U) [Mass/Vol] mg/dL NINF - 2.0 mg/dL [facility] Appearance (U) Hazy Normal Clear [facility] Comment on above: Performed By: #### 2 4321-2 #### ANKIT MURPHY ([id number]) [facility] ([facility]) [address] [place] [address] 00423 Bilirubin (U) [Mass/Vol] Negative Normal NEGATIVE [facility] Comment on above: Performed By: #### 2 4321-2 #### ANKIT MURPHY ([id number]) [facility] ([facility]) [address] [place] [address] 09340 Color (U) Yellow Normal Straw, Yellow [facility] Comment on above: Performed By: #### 2 4321-2 #### ANKIT MURPHY ([id number]) [facility] ([facility]) [address] [place] [address] 15306 Glucose Auto test strip (U) [Mass/Vol] Negative Normal NEGATIVE [facility] Comment on above: Performed By: #### 2 4321-2 #### ANKIT MURPHY ([id number]) [facility] ([facility]) [address] [place] [address] 77693 Ketones (U) [Mass/Vol] Negative Normal NEGATIVE [facility] Comment on above: Performed By: #### 2 4321-2 #### ANKIT MURPHY ([id number]) [facility] ([facility]) [address] [place] [address] 57518 Leukocyte esterase Auto test strip Ql (U) SMALL (1+) Abnormal NEGATIVE [facility] Comment on above: Performed By: #### 2 4321-2 #### ANKIT MURPHY ([id number]) [facility] ([facility]) [address] [place] [address] 32482 Nitrite Auto test strip Ql (U) Negative Normal NEGATIVE [facility] Comment on above: Performed By: #### 2 4320-2 #### ANKIT MURPHY ([id number]) [facility] ([facility]) [address] [place] [address] 92774 pH (U) 5.0 [pH] Normal 5.0, 5.5, 6.0, 6.5, 7.0, 7.5, 8.0 [facility] Comment on above: Performed By: #### 2 4320-2 #### ANKIT MURPHY ([id number]) [facility] ([facility]) [address] [place] [address] 27297 Protein (U) [Mass/Vol] 30 (1+) Normal NEGATIVE [facility] Comment on above: Performed By: #### 2 1-2 #### ANKIT MURPHY ([id number]) [facility] ([facility]) [address] [place] [address] 29805 RBC (U) [#/Vol] Negative Normal NEGATIVE [facility] Comment on above: Performed By: #### 2 1-2 #### AKNIT MURPHY ([id number]) [facility] ([facility]) [address] [place] [address] 40569 Specific gravity (U) [Rel density] 1.020 Normal 1.005-1.035 [facility] Comment on above: Performed By: #### 2 1-2 #### ANKIT MURPHY ([id number]) [facility] ([facility]) [address] [place] [address] Urobilinogen (U) [Mass/Vol] mg/dL Normal <2.0 [facility] Comment on above: Performed By: #### 2 4321-2 #### ANKIT MURPHY ([id number]) [facility] ([facility]) [address] [place] [address] Urinalysis microscopic panel Auto Ql (U)on 08-13-2023 Bacteria Auto (Urine sed) [#/Area] 1+ Abnormal NONE SEEN /HPF [facility] Epithelial cells.squamous Auto (Urine sed) [#/Area] 26-50 (1+) Reference range not established. /HPF [facility] Hyaline casts Auto (Urine sed) [#/Area] OCCASIONAL Abnormal NONE /LPF [facility] Mucus Auto (Urine sed) [#/Area] 1+ Reference range not established. /LPF [facility] RBC Auto (Urine sed) [#/Area] 1-2 NONE, 1-2, 3-5 /HPF [facility] WBC Auto (Urine sed) [#/Area] 11-20 Abnormal 1-5, NONE /HPF [facility] Bacteria Auto (Urine sed) [#/Area] 1+ /HPF Abnormal NONE SEEN [facility] Comment on above: Performed By: #### 2 4321-2 #### ANKIT MURPHY ([id number]) [facility] ([facility]) [address] [place] [address] Epithelial cells.squamous Auto (Urine sed) [#/Area] 26-50 (1+) Normal Reference range not established. [facility] Comment on above: Performed By: #### 2 4321-2 #### ANKIT MURPHY ([id number]) [facility] ([facility]) [address] [place] [address] Hyaline casts Auto (Urine sed) [#/Area] OCCASIONAL Abnormal NONE [facility] Comment on above: Performed By: #### 2 4321-2 #### ANKIT MURPHY ([id number]) [facility] ([facility]) [address] [place] [address] Mucus Auto (Urine sed) [#/Area] 1+ /LPF Normal Reference range not established. [facility] Comment on above: Performed By: #### 2 4321-2 #### ANKIT MURPHY ([id number]) [facility] ([facility]) [address] [place] [address] 14652 RBC Auto (Urine sed) [#/Area] 1-2 Normal NONE, 1-2, 3-5 [facility] Comment on above: Performed By: #### 2 4321-2 #### ANKIT MURPHY ([id number]) [facility] ([facility]) [address] [place] [address] 55241 WBC Auto (Urine sed) [#/Area] 11-20 Abnormal 1-5, NONE [facility] Comment on above: Performed By: #### 2 4321-2 #### ANKIT MURPHY ([id number]) [facility] ([facility]) [address] [place] [address] XR CHEST 1 VIEWon 08-13-2023 XR CHEST 1 VIEW Interpreted By: Derrick Ledesma, STUDY: XR CHEST 1 VIEW; 08/13/2023 7:50 am INDICATION: Signs/Symptoms:Hyperten lia. COMPARISON: CT scan abdomen and pelvis dated 11/23/2019. Chest x-rays, most recent from 06/13/2023. ACCESSION NUMBER(S): [id number] ORDERING CLINICIAN: LOPEZ GUTIERREZ TECHNIQUE: Single AP [...] Derrick Bob 08/13/2023 8:15 AM Dictation workstation: [id number] Normal [facility] XR Chest Single viewon 08-13 Stable Linx device a t the GE junction. Otherwise, negative exam. Signed by: Derrick Bob 08/13/2023 8:15 AM Dictation workstation: [id number] Interpreted By: Derrick Ledesma, STUDY: XR CHEST 1 VIEW; 08/13/2023 7:50 am INDICATION: Signs/Symptoms:Hyperten lia. COMPARISON: CT scan abdomen and pelvis dated 11/23/2019. Chest x-rays, most recent from 06/13/2023. ACCESSION NUMBER(S): [id number] ORDERING CLINICIAN: LOPEZ GUTIERREZ TECHNIQUE: Single AP [...] x-rays, most recent from 06/13/2023. ACCESSION NUMBER(S): [id number] ORDERING CLINICIAN: LOPEZ GUTIERREZ TECHNIQUE: Single AP [...] Derrick Bob 08/13/2023 8:15 AM Dictation workstation: [id number] [facility] Work Phone: Radiology Study observation (narrative) [facility] Work Phone: XR Chest Single viewOrdered By: Derrick Bob on 08-13-2023 [facility] Work Phone: Basic metabolic 2000 panelon 08-01-2023 Anion gap [Moles/Vol] 12 mmol/L Normal 10-[address] [facility] Comment on above: Performed By: #### 2 4321-2 #### ANKIT MURPHY ([id number]) [facility] ([facility]) [address] [place] [address] Calcium [Mass/Vol] 9.5 mg/dL Normal 8.6-10.3 [facility] Comment on above: Performed By: #### 2 4321-2 #### ANKIT MURPHY ([id number]) [facility] ([facility]) [address] [place] [address] Chloride [Moles/Vol] 103 mmol/L Normal 98-107 [facility] Comment on above: Performed By: #### 2 4321-2 #### ANKIT MURPHY ([id number]) [facility] ([facility]) [address] [place] [address] CO2 [Moles/Vol] 28 mmol/L Normal 21-32 [facility] Comment on above: Performed By: #### 2 4321-2 #### ANKIT MURPHY ([id number]) [facility] ([facility]) [address] [place] [address] Creatinine [Mass/Vol] 1.40 mg/dL High 0.50-1.[address] [facility] Comment on above: Performed By: #### 2 4321-2 #### ANKIT MURPHY ([id number]) [facility] ([facility]) [facility] [place] [address] GFR/1.73 sq M.predicted MDRD (S/P/Bld) [Vol rate/Area] 46 mL/min/1.73m*2 Low >60 [facility] Comment on above: Result Comment: Calc ulations of estimated GFR are performed using the 2020 CKD-EPI Study Refit equation without the race variable for the IDMS-Traceable creatinine methods. https://jasn.asnjournals.org/content//ASN.335397 7615 Performed By: #### 2 4321-2 #### ANKIT MURPHY ([id number]) [facility] ([facility]) [address] [place] [address] 53554 Glucose [Mass/Vol] 91 mg/dL Normal 74-99 [facility] Comment on above: Performed By: #### 2 4321-2 #### ANKIT MURPHY ([id number]) [facility] ([facility]) [address] [place] [address] 33233 Potassium [Moles/Vol] 4.6 mmol/L Normal 3.5-5.[address] [facility] Comment on above: Performed By: #### 2 4321-2 #### ANKIT MURPHY ([id number]) [facility] ([facility]) [address] [place] [address] 84286 Sodium [Moles/Vol] 138 mmol/L Normal 136-145 [facility] Comment on above: Performed By: #### 2 4321-2 #### ANKIT MURPHY ([id number]) [facility] ([facility]) [address] [place] [address] 91513 Urea nitrogen [Mass/Vol] 26 mg/dL High 6-23 [facility] Comment on above: Performed By: #### 2 4321-2 #### ANKIT MURPHY ([id number]) [facility] ([facility]) [address] [place] [address] 83147 CBC W Auto Differential pane l (Bld)on 08-01-2023 Basophils (Bld) [#/Vol] 0.01 x10*3/uL Normal 0.00-0.10 [facility] Comment on above: Performed By: #### 5 7021-8 #### ANKIT MURPHY ([id number]) [facility] ([facility]) [address] [place] [address] 30051 Basophils/100 WBC (Bld) 0.2 % Normal 0.0-2.0 [facility] Comment on above: Performed By: #### 5 7021-8 #### ANKIT MURPHY ([id number]) [facility] ([facility]) [address] [place] [address] 12283 Eosinophils (Bld) [#/Vol] 0.08 x10*3/uL Normal 0.00-0.70 [facility] Comment on above: Performed By: #### 7021-8 #### ANKIT MURPHY ([id number]) [facility] ([facility]) [address] [place] [address] 94557 Eosinophils/100 WBC (Bld) 1.5 % Normal 0.0-6.0 [facility] Comment on above: Performed By: #### 7021-8 #### ANKIT MURPHY ([id number]) [facility] ([facility]) [address] [place] [address] 69758 Erythrocyte distribution width (RBC) [Ratio] 12.6 % Normal 11.5-14.5 [facility] Comment on above: Performed By: #### 5 7021-8 #### ANKIT MURPHY ([id number]) [facility] ([facility]) [address] [place] [address] 72405 Hematocrit (Bld) [Volume fraction] 42.3 % Normal 36.0-46.0 [facility] Comment on above: Performed By: #### 5 7021-8 #### ANKIT MURPHY ([id number]) [facility] ([facility]) [address] [place] [address] 25989 Hemoglobin (Bld) [Mass/Vol] 14.0 g/dL Normal 12.0-16.0 [facility] Comment on above: Performed By: #### 5 7021-8 #### ANKIT MURPHY ([id number]) [facility] ([facility]) [address] [place] [address] 51741 Immature granulocytes (Bld) [#/Vol] 0.02 x10*3/uL Normal 0.00-0.70 [facility] Comment on above: Performed By: #### 7021-8 #### ANKIT MURPHY ([id number]) [facility] ([facility]) [address] [place] [address] 82782 Immature granulocytes/100 WBC (Bld) 0.4 % Normal 0.0-0.9 [facility] Comment on above: Result Comment: Suze ture Granulocyte Count (IG) includes promyelocytes, myelocytes and metamyelocytes but does not include bands. Percent differential counts (%) should be interpreted in the context of the absolute cell counts (cells/UL). Performed By: #### 5 7021-8 #### ANKIT MURPHY ([id number]) [facility] ([facility]) [address] [place] [address] 55893 Lymphocytes (Bld) [#/Vol] 1.37 x10*3/uL Normal 1.20-4.80 [facility] Comment on above: Performed By: #### 5 7021-8 #### ANKIT MURPHY ([id number]) [facility] ([facility]) [address] [place] [address] 45441 Lymphocytes/100 WBC (Bld) 25.1 % Normal 13.0-44.0 [facility] Comment on above: Performed By: #### 5 7021-8 #### ANKIT MURPHY ([id number]) [facility] ([facility]) [address] [place] [address] 77690 MCH (RBC) [Entitic mass] 30.4 pg Normal 26.0-34.0 [facility] Comment on above: Performed By: #### 5 7021-8 #### ANKIT MURPHY ([id number]) [facility] ([facility]) [address] [place] [address] 89233 MCHC (RBC) [Mass/Vol] 33.1 g/dL Normal 32.0-36.[address] [facility] Comment on above: Performed By: #### 5 7021-8 #### ANKIT MURPHY ([id number]) [facility] ([facility]) [address] [place] [address] 45911 MCV (RBC) [Entitic vol] 92 fL Normal 80-100 [facility] Comment on above: Performed By: #### 5 7021-8 #### ANKIT MURPHY ([id number]) [facility] ([facility]) [address] [place] [address] 09072 Monocytes (Bld) [#/Vol] 0.49 x10*3/uL Normal 0.10-1.00 [facility] Comment on above: Performed By: #### 5 7021-8 #### ANKIT MURPHY ([id number]) [facility] ([facility]) [address] [place] [address] 57857 Monocytes/100 WBC (Bld) 9.0 % Normal 2.0-10.0 [facility] Comment on above: Performed By: #### 5 7021-8 #### ANKIT MURPHY ([id number]) [facility] ([facility]) [address] [place] [address] 86847 Neutrophils (Bld) [#/Vol] 3.48 x10*3/uL Normal 1.20-7.70 [facility] Comment on above: Result Comment: Perc ent differential counts (%) should be interpreted in the context of the absolute cell counts (cells/uL). Performed By: #### 5 7021-8 #### ANKIT MURPHY ([id number]) [facility] ([facility]) [address] [place] [address] 45962 Neutrophils/100 WBC (Bld) 63.8 % Normal 40.0-80.0 [facility] Comment on above: Performed By: #### 5 7021-8 #### ANKIT MURPHY ([id number]) [facility] ([facility]) [address] [place] [address] 89355 Nucleated RBC/100 WBC (Bld) [Ratio] 0.0 /100 WBCs Normal 0.0-0.0 [facility] Comment on above: Performed By: #### 5 7021-8 #### ANKIT MURPHY ([id number]) [facility] ([facility]) [address] [place] [address] 81112 Platelet mean volume (Bld) [Entitic vol] 10.5 fL Normal 7.5-11.5 [facility] Comment on above: Performed By: #### 5 7021-8 #### ANKIT MURPHY ([id number]) [facility] ([facility]) [address] [place] [address] 48394 Platelets (Bld) [#/Vol] 122 x10*3/uL Low 150-450 [facility] Comment on above: Result Comment: Gracia fishameka by repeat analysis Performed By: #### 5 7021-8 #### ANKIT MURPHY ([id number]) [facility] ([facility]) [address] [place] [address] RBC (Bld) [#/Vol] 4.61 x10*6/uL Normal 4.00-5.20 [facility] Comment on above: Performed By: #### 5 7021-8 #### ANKIT MURPHY ([id number]) [facility] ([facility]) [address] [place] [address] WBC (Bld) [#/Vol] 5.5 x10*3/uL Normal 4.4-11.3 [facility] Comment on above: Performed By: #### 5 7021-8 #### ANKIT MURPHY ([id number]) [facility] ([facility]) [address] [place] [address] Urinalysis complete W Reflex Culture panel (U)on 08-01-2023 Appearance (U) Clear Normal Clear [facility] Comment on above: Performed By: #### 5 8077-9 #### ANKIT MURPHY ([id number]) [facility] ([facility]) [address] [place] [address] Bilirubin (U) [Mass/Vol] Negative Normal NEGATIVE [facility] Comment on above: Performed By: #### 5 8077-9 #### ANKIT MURPHY ([id number]) [facility] ([facility]) [address] [place], [place] [address] Color (U) Straw Normal Straw, Yellow [facility] Comment on above: Performed By: #### 5 8077-9 #### ANKIT MURPHY ([id number]) [facility] ([facility]) [address] [place] [address] 21811 Glucose Auto test strip (U) [Mass/Vol] Negative Normal NEGATIVE [facility] Comment on above: Performed By: #### 5 8077-9 #### ANKIT MURPHY ([id number]) [facility] ([facility]) [address] [place] [address] 35606 Ketones (U) [Mass/Vol] Negative Normal NEGATIVE [facility] Comment on above: Performed By: #### 5 8077-9 #### ANKIT MURPHY ([id number]) [facility] ([facility]) [address] [place] [address] 80686 Leukocyte esterase Auto test strip Ql (U) Negative Normal NEGATIVE [facility] Comment on above: Performed By: #### 5 8077-9 #### ANKIT MURPHY ([id number]) [facility] ([facility]) [address] [place] [address] Nitrite Auto test strip Ql (U) Negative Normal NEGATIVE [facility] Comment on above: Performed By: #### 5 8077-9 #### ANKIT MURPHY ([id number]) [facility] ([facility]) [address] [place] [address] 03049 pH (U) 7.0 [pH] Normal 5.0, 5.5, 6.0, 6.5, 7.0, 7.5, 8.0 [facility] Comment on above: Performed By: #### 5 8077-9 #### ANKIT MURPHY ([id number]) [facility] ([facility]) [address] [place] [address] 99688 Protein (U) [Mass/Vol] Negative Normal NEGATIVE [facility] Comment on above: Performed By: #### 5 8077-9 #### ANKIT MURPHY ([id number]) [facility] ([facility]) [address] [place] [address] 94151 RBC (U) [#/Vol] Negative Normal NEGATIVE [facility] Comment on above: Performed By: #### 5 8077-9 #### ANKIT MURPHY ([id number]) [facility] ([facility]) [address] [place] [address] 62868 Specific gravity (U) [Rel density] 1.013 Normal 1.005-1.035 [facility] Comment on above: Performed By: #### 5 8077-9 #### ANKIT MURPHY ([id number]) [facility] ([facility]) [address] [place] [address] 84205 Urobilinogen (U) [Mass/Vol] mg/dL Normal <2.0 [facility] Comment on above: Performed By: #### 5 8077-9 #### ANKIT MURPHY ([id number]) [facility] ([facility]) [address] [place] [address] CBC W Auto Differential pane l (Bld)on 07-29-2023 Basophils (Bld) [#/Vol] 0.02 x10*3/uL Normal 0.00-0.10 [facility] Comment on above: Performed By: #### 5 7021-8 #### ANKIT MURPHY ([id number]) [facility] ([facility]) [address] [place] [address] 54886 Basophils/100 WBC (Bld) 0.4 % Normal 0.0-2.0 [facility] Comment on above: Performed By: #### 5 7021-8 #### ANKIT MURPHY ([id number]) [facility] ([facility]) [address] [place] [address] 72027 Eosinophils (Bld) [#/Vol] 0.10 x10*3/uL Normal 0.00-0.70 [facility] Comment on above: Performed By: #### 5 7021-8 #### ANKIT MURPHY ([id number]) [facility] ([facility]) [address] [place] [address] 15563 Eosinophils/100 WBC (Bld) 1.8 % Normal 0.0-6.0 [facility] Comment on above: Performed By: #### 5 7021-8 #### ANKIT MURPHY ([id number]) [facility] ([facility]) [address] [place] [address] 16349 Erythrocyte distribution width (RBC) [Ratio] 12.8 % Normal 11.5-14.5 [facility] Comment on above: Performed By: #### 5 7021-8 #### ANKIT MURPHY ([id number]) [facility] ([facility]) [address] [place] [address] Hematocrit (Bld) [Volume fraction] 42.9 % Normal 36.0-46.0 [facility] Comment on above: Performed By: #### 5 7021-8 #### ANKIT MURPHY ([id number]) [facility] ([facility]) [address] [place] [address] Hemoglobin (Bld) [Mass/Vol] 14.4 g/dL Normal 12.0-16.0 [facility] Comment on above: Performed By: #### 5 7021-8 #### ANKIT MURPHY ([id number]) [facility] ([facility]) [address] [place] [address] Immature granulocytes (Bld) [#/Vol] 0.04 x10*3/uL Normal 0.00-0.70 [facility] Comment on above: Performed By: #### 5 7021-8 #### ANKIT MURPHY ([id number]) [facility] ([facility]) [address] [place], [place] [phone] Immature granulocytes/100 WBC (Bld) 0.7 % Normal 0.0-0.9 [facility] Comment on above: Result Comment: Suze ture Granulocyte Count (IG) includes promyelocytes, myelocytes and metamyelocytes but does not include bands. Percent differential counts (%) should be interpreted in the context of the absolute cell counts (cells/UL). Performed By: #### 5 7021-8 #### AKNIT MURPHY ([id number]) [facility] ([facility]) [address] [place] [address] 44199 Lymphocytes (Bld) [#/Vol] 1.85 x10*3/uL Normal 1.20-4.80 [facility] Comment on above: Performed By: #### 5 7021-8 #### ANKIT MURPHY ([id number]) [facility] ([facility]) [address] [place] [address] 11508 Lymphocytes/100 WBC (Bld) 32.6 % Normal 13.0-44.0 [facility] Comment on above: Performed By: #### 5 7021-8 #### ANKIT MURPHY ([id number]) [facility] ([facility]) [address] [place] [address] 58166 MCH (RBC) [Entitic mass] 31.0 pg Normal 26.0-34.0 [facility] Comment on above: Performed By: #### 5 7021-8 #### ANKIT MURPHY ([id number]) [facility] ([facility]) [address] [place] [address] 15495 MCHC (RBC) [Mass/Vol] 33.6 g/dL Normal 32.0-36.0 [facility] Comment on above: Performed By: #### 5 7021-8 #### ANKIT MURPHY ([id number]) [facility] ([facility]) [address] [place] [address] 37331 MCV (RBC) [Entitic vol] 93 fL Normal 80-100 [facility] Comment on above: Performed By: #### 5 7021-8 #### ANKIT MURPHY ([id number]) [facility] ([facility]) [address] [place] [address] 43408 Monocytes (Bld) [#/Vol] 0.49 x10*3/uL Normal 0.10-1.00 [facility] Comment on above: Performed By: #### 5 7021-8 #### ANKIT MURPHY ([id number]) [facility] ([facility]) [address] [place] [address] 78844 Monocytes/100 WBC (Bld) 8.6 % Normal 2.0-10.0 [facility] Comment on above: Performed By: #### 5 7021-8 #### ANKIT MURPHY ([id number]) [facility] ([facility]) [address] [place] [address] 25988 Neutrophils (Bld) [#/Vol] 3.18 x10*3/uL Normal 1.20-7.70 [facility] Comment on above: Result Comment: Perc ent differential counts (%) should be interpreted in the context of the absolute cell counts (cells/uL). Performed By: #### 5 7021-8 #### ANKIT MURPHY ([id number]) [facility] ([facility]) [address] [place] [address] 58368 Neutrophils/100 WBC (Bld) 55.9 % Normal 40.0-80.0 [facility] Comment on above: Performed By: #### 5 7021-8 #### ANKIT MURPHY ([id number]) [facility] ([facility]) [address] [place] [address] 39706 Nucleated RBC/100 WBC (Bld) [Ratio] 0.0 /100 WBCs Normal 0.0-0.0 [facility] Comment on above: Performed By: #### 5 7021-8 #### ANKIT MURPHY ([id number]) [facility] ([facility]) [address] [place] [address] 35514 Platelet mean volume (Bld) [Entitic vol] 11.3 fL Normal 7.5-11.5 [facility] Comment on above: Performed By: #### 5 7021-8 #### ANKIT MURPHY ([id number]) [facility] ([facility]) [address] [place] [address] 80746 Platelets (Bld) [#/Vol] 130 x10*3/uL Low 150-450 [facility] Comment on above: Performed By: #### 5 7021-8 #### ANKIT MURPHY ([id number]) [facility] ([facility]) [address] [place] [address] 50368 RBC (Bld) [#/Vol] 4.64 x10*6/uL Normal 4.00-5.20 [facility] Comment on above: Performed By: #### 5 7021-8 #### ANKIT MURPHY ([id number]) [facility] ([facility]) [address] [place] [address] 64008 WBC (Bld) [#/Vol] 5.7 x10*3/uL Normal 4.4-11.3 [facility] Comment on above: Performed By: #### 5 7021-8 #### ANKIT MURPHY ([id number]) [facility] ([facility]) [address] [place] [address] Comprehensive metabolic 2000 panelon 07-29-2023 Albumin BCP dye [Mass/Vol] 4.4 g/dL Normal 3.4-5.0 [facility] Comment on above: Performed By: #### 2 4323-8 #### ANKIT MURPHY ([id number]) [facility] ([facility]) [address] [place] [address] ALP [Catalytic activity/Vol] 60 U/L Normal 33-110 [facility] Comment on above: Performed By: #### 2 4323-8 #### ANKIT MURPHY ([id number]) [facility] ([facility]) [address] [place] [address] ALT With P-5'-P [Catalytic activity/Vol] 15 U/L Normal 7-45 [facility] Comment on above: Result Comment: Marjan ents treated with Sulfasalazine may generate falsely decreased results for ALT. Performed By: #### 2 4323-8 #### ANKIT MURPHY ([id number]) [facility] ([facility]) [address] [place] [address] 25010 Anion gap [Moles/Vol] 10 mmol/L Normal 10-20 [facility] Comment on above: Performed By: #### 2 4323-8 #### ANKIT MURPHY ([id number]) [facility] ([facility]) [address] [place] [address] 58087 AST With P-5'-P [Catalytic activity/Vol] 18 U/L Normal 9-39 [facility] Comment on above: Performed By: #### 2 4323-8 #### ANKIT MURPHY ([id number]) [facility] ([facility]) [address] [place], [place] [phone] Bilirubin [Mass/Vol] 0.3 mg/dL Normal 0.0-1.2 [facility] Comment on above: Performed By: #### 2 4323-8 #### ANKIT MURPHY ([id number]) [facility] ([facility]) [address] [place] [address] Calcium [Mass/Vol] 9.9 mg/dL Normal 8.6-10.3 [facility] Comment on above: Performed By: #### 2 4323-8 #### ANKIT MURPHY ([id number]) [facility] ([facility]) [address] [place] [address] 14144 Chloride [Moles/Vol] 102 mmol/L Normal 98-107 [facility] Comment on above: Performed By: #### 2 4323-8 #### ANKIT MURPHY ([id number]) [facility] ([facility]) [address] [place] [address] 02651 CO2 [Moles/Vol] 31 mmol/L Normal 21-32 [facility] Comment on above: Performed By: #### 2 4323-8 #### ANKIT MURPHY ([id number]) [facility] ([facility]) [address] [place] [address]210 Creatinine [Mass/Vol] 1.32 mg/dL High 0.50-1.05 [facility] Comment on above: Performed By: #### 2 4323-8 #### ANKIT MURPHY ([id number]) [facility] ([facility]) [address] [place] [address]17 GFR/1.73 sq M.predicted MDRD (S/P/Bld) [Vol rate/Area] 50 mL/min/1.73m*2 Low >60 [facility] Comment on above: Result Comment: Calc ulations of estimated GFR are performed using the 2020 CKD-EPI Study Refit equation without the race variable for the IDMS-Traceable creatinine methods. https://jasn.asnjournals.org/content//ASN.515003 8104 Performed By: #### 2 4323-8 #### ANKIT MURPHY ([id number]) [facility] ([facility]) [address] [place] [address]997 Glucose [Mass/Vol] 85 mg/dL Normal 74-99 [facility] Comment on above: Performed By: #### 2 4323-8 #### ANKIT MURPHY ([id number]) [facility] ([facility]) [facility] [place] [address] Potassium [Moles/Vol] 4.9 mmol/L Normal 3.5-5.3 [facility] Comment on above: Performed By: #### 2 4323-8 #### ANKIT MURPHY ([id number]) [facility] ([facility]) [address] [place] [address]292 Protein [Mass/Vol] 6.8 g/dL Normal 6.4-8.2 [facility] Comment on above: Performed By: #### 2 4323-8 #### ANKIT MURPHY ([id number]) [facility] ([facility]) [address] [place] [address] Sodium [Moles/Vol] 138 mmol/L Normal 136-145 [facility] Comment on above: Performed By: #### 2 4323-8 #### ANKIT MURPHY ([id number]) [facility] ([facility]) [address] [place] [address] Urea nitrogen [Mass/Vol] 22 mg/dL Normal 6-23 [facility] Comment on above: Performed By: #### 2 4323-8 #### ANKIT MURPHY ([id number]) [facility] ([facility]) [address] [place] [address] Valproateon 07-29-2023 Valproate [Mass/Vol] 48 ug/mL Low 50-100 [facility] Comment on above: Performed By: #### 4 086-5 #### ANKIT MURPHY ([id number]) [facility] ([facility]) [address] [place] [address] HEAD WO CONTRASTon 2022 CT HEAD WO CONTRAST Normal [facility] Provider Note - ED v3on 06-19 Provider Note - ED v3 Normal [facility] Risk Screen - Adult Emergenc yon 07-16-2023 Risk Screen - Adult Emergency Normal [facility] Triage - EDon 07-16-2023 Triage - ED Normal [facility] POCT UA Automated manually r esultedon 07-13-2023 Appearance (U) Cloudy Abnormal Clear [facility] Work Phone: Glucose Test strip (U) [Mass/Vol] Negative NEGATIVE mg/dl [facility] Work Phone: Hemoglobin Ql (U) Negative NEGATIVE [facility] Work Phone: Interpretation and review of laboratory results Abnormal [facility] Work Phone: Leukocyte esterase Test strip Ql (U) Negative NEGATIVE [facility] Work Phone: Nitrite Ql (U) Negative NEGATIVE [facility] Work Phone: pH (U) 6.0 [pH] No Reference Range Established [facility] Work Phone: POC Bilirubin, Urine Negative NEGATIVE [facility] Work Phone: POC Color, Urine Yellow Straw, Yellow, Light Yellow [facility] Work Phone: POC Ketones, Urine Negative NEGATIVE mg/dl [facility] Work Phone: POC Protein, Urine Negative NEGATIVE, 30 (1+) mg/dl [facility] Work Phone: POC Specific [place], Urine 1.025 1.005 - 1.035 [facility] Work Phone: POC Urobilinogen, Urine 0.2 0.2, 1.0 EU/DL [facility] Work Phone: [facility] Work Phone: OT Progress Noteon 3 OT Progress Note No report was sent Normal [employer] Therapy Communicationon 05-19 Therapy Communication Message REEMA SHAH canceled today . Signatures Electronically signed by : CRISTIAN Rod/Jerilyn; Jun 15 2023 3:55PM EST (Author) Normal [employer] APTTon 06-14-2023 aPTT Coag (Bld) [Time] 31 s Normal 27 - 38 [facility] Comment on above: Result Comment: Note new reference range as of 04/06/2023 at 10:00am. Performed By: #### A PTT ####[address] [address] BNPon 06-14-2023 Natriuretic peptide B (Bld) [Mass/Vol] 75 pg/mL Normal 0 - 99 [facility] Comment on above: Result Comment: . <1 00 pg/mL - Heart failure hkesxyrg129-115 pg/mL - Intermediate probability of acute heart. failure exacerbation. Correlate with clinical. context and patient history. >=300 pg/mL - Heart Failure likely. Correlate with clinical. context and patient history.BNP testing is performed using different testingmethodology at [facility] than at [facility]. Direct result comparisons shouldonly be made within the same method. Performed By: #### B NP2 ####[address] [address] CBC AND DIFFERENTIALon 06-14 % AUTOMATED IMMATURE GRAN 0.9 % Normal 0.0 - 0.9 [facility] Comment on above: Result Comment: Suze ture Granulocyte Count (IG) includes promyelocytes, myelocytes and metamyelocytes but does not include bands. Percent differential counts (%) should be interpreted in the context of the absolute cell counts (cells/L). Performed By: #### C BCDF ####[address] [address] Basophils (Bld) [#/Vol] 0.01 10*3/uL Normal 0.00 - 0.10 [facility] Comment on above: Performed By: #### C BCDF ####[address] [address] Basophils/100 WBC (Bld) 0.2 % Normal 0.0 - 2.0 [facility] Comment on above: Performed By: #### C BCDF ####[address] [address] Eosinophils (Bld) [#/Vol] 0.11 10*3/uL Normal 0.00 - 0.70 [facility] Comment on above: Performed By: #### C BCDF ####[address] [address] Eosinophils/100 WBC (Bld) 2.1 % Normal 0.0 - 6.0 [facility] Comment on above: Performed By: #### C BCDF ####[address] [address] Erythrocyte distribution width (RBC) [Ratio] 12.8 % Normal 11.5 - 14.5 [facility] Comment on above: Performed By: #### C BCDF ####[address] [address] Hematocrit (Bld) [Volume fraction] 40.1 % Normal 36.0 - 46.0 [facility] Comment on above: Performed By: #### C BCDF ####[address] [address] Hemoglobin (Bld) [Mass/Vol] 13.8 g/dL Normal 12.0 - 16.0 [facility] Comment on above: Performed By: #### C BCDF ####[address] [address] Lymphocytes (Bld) [#/Vol] 1.37 10*3/uL Normal 1.20 - 4.80 [facility] Comment on above: Performed By: #### C BCDF ####[address] [address] Lymphocytes/100 WBC (Bld) 26.0 % Normal 13.0 - 44.0 [facility] Comment on above: Performed By: #### C BCDF ####[address] [address] MCHC (RBC) [Mass/Vol] 34.4 g/dL Normal 32.0 - 36.0 [facility] Comment on above: Performed By: #### C BCDF ####[address] [address] MCV (RBC) [Entitic vol] 89 fL Normal 80 - 100 [facility] Comment on above: Performed By: #### C BCDF ####[address] [address] Monocytes (Bld) [#/Vol] 0.39 10*3/uL Normal 0.10 - 1.00 [facility] Comment on above: Performed By: #### C BCDF ####[address] [address] Monocytes/100 WBC (Bld) 7.4 % Normal 2.0 - 10.0 [facility] Comment on above: Performed By: #### C BCDF ####[address] [address] Neutrophils (Bld) [#/Vol] 3.34 10*3/uL Normal 1.20 - 7.70 [facility] Comment on above: Result Comment: Perc ent differential counts (%) should be interpreted in the context of the absolute cell counts (cells/L). Performed By: #### C BCDF ####[address] [address] Neutrophils/100 WBC (Bld) 63.4 % Normal 40.0 - 80.0 [facility] Comment on above: Performed By: #### C BCDF ####[address] [address] Platelets (Bld) [#/Vol] 111 10*3/uL Low 150 - 450 [facility] Comment on above: Performed By: #### C BCDF ####[address] [address] RBC 4.51 x10E12/L Normal 4.00 - 5.20 [facility] Comment on above: Performed By: #### C BCDF ####[address] [address] WBC (Bld) [#/Vol] 5.3 10*3/uL Normal 4.4 - 11.[address] [facility] Comment on above: Performed By: #### C BCDF ####[address] [address] CHEST 1 VIEWon 06-14-2023 CHEST 1 VIEW Normal [facility] COMPREHENSIVE PANELon 2022 Albumin [Mass/Vol] 4.0 g/dL Normal 3.4 - 5.[address] [facility] Comment on above: Performed By: #### C MP ####[address] [address] ALP [Catalytic activity/Vol] 66 U/L Normal 33 - 110 [facility] Comment on above: Performed By: #### C MP ####[address] [address] ALT [Catalytic activity/Vol] 8 U/L Normal 7 - 45 [facility] Comment on above: Result Comment: Marjan ents treated with Sulfasalazine may generate falsely decreased results for ALT. Performed By: #### C MP ####[address] [address] Anion gap [Moles/Vol] 11 mmol/L Normal 10 - 20 [facility] Comment on above: Performed By: #### C MP ####[address] [address] AST [Catalytic activity/Vol] 12 U/L Normal 9 - 39 [facility] Comment on above: Performed By: #### C MP ####[address] [address] Bilirubin [Mass/Vol] 0.3 mg/dL Normal 0.0 - 1.2 [facility] Comment on above: Performed By: #### C MP ####[address] [address] Calcium [Mass/Vol] 8.5 mg/dL Low 8.6 - 10.[address] [facility] Comment on above: Performed By: #### C MP ####[address] [address] Chloride [Moles/Vol] 104 mmol/L Normal 98 - 107 [facility] Comment on above: Performed By: #### C MP ####[address] [address] Creatinine [Mass/Vol] 1.11 mg/dL High 0.50 - 1.05 [facility] Comment on above: Performed By: #### C MP ####[address] [address] GFR/1.73 sq M.predicted among non-blacks MDRD (S/P/Bld) [Vol rate/Area] 61 mL/min/{1.73_m2} Normal >90 [facility] Comment on above: Result Comment: CALC ULATIONS OF ESTIMATED GFR ARE PERFORMED USING THE 2020 CKD-EPI STUDY REFIT EQUATION WITHOUT THE RACE VARIABLE FOR THE IDMS-TRACEABLE CREATININE METHODS.https://jasn.asnjournals.org/content/early/ N.7605064714 Performed By: #### C MP ####[address] [address] Glucose [Mass/Vol] 95 mg/dL Normal 74 - [address] [facility] Comment on above: Performed By: #### C MP ####[address] [address] HCO3 (Bld) [Moles/Vol] 26 mmol/L Normal 21 - 32 [facility] Comment on above: Performed By: #### C MP ####[address] [address] Potassium [Moles/Vol] 4.2 mmol/L Normal 3.5 - 5.3 [facility] Comment on above: Performed By: #### C MP ####[address] [address] Protein [Mass/Vol] 6.1 g/dL Low 6.4 - 8.[address] [facility] Comment on above: Performed By: #### C MP ####[address] [address] Sodium [Moles/Vol] 137 mmol/L Normal 136 - [address] [facility] Comment on above: Performed By: #### C MP ####[address] [address] Urea nitrogen [Mass/Vol] 19 mg/dL Normal 6 - 23 [facility] Comment on above: Performed By: #### C MP ####[address] [place] [address] MAGNESIUMon 06-14-2023 Magnesium [Mass/Vol] 1.61 mg/dL Normal 1.60 - 2.40 [facility] Comment on above: Performed By: #### M G ####[address] [address] PT/INRon 06-14-2023 PT Coag (PPP) [Time] 10.3 s Normal 9.8 - 12.8 [facility] Comment on above: Result Comment: Note new reference range as of 04/06/2023 at 10:00am. Performed By: #### P TINR ####[address] [address] PT, INR 0.9 Normal 0.9 - 1.1 [facility] Comment on above: Performed By: #### P TINR ####[address] [address] Provider Note - ED v3on 05-19 Provider Note - ED v3 Normal [facility] Risk Screen - Adult Emergenc yon 06-14-2023 Risk Screen - Adult Emergency Normal [facility] TROPONIN I, HIGH SENSITIVITY on 06-14-2023 TROPONIN I, HIGH SENSITIVITY Canceled Normal [facility] Comment on above: Order Comment: TEST TROPONIN [...] is performed using a differenttesting methodology at [facility] than at [facility]. Direct result comparisons should onlybe made within the same method. Performed By: #### T [facility] ####[address] [place] [address] TROPONIN I, HIGH SENSITIVITY 7 ng/L Normal 0 - 13 [facility] Comment on above: Result Comment: .Les s [...] is performed using a differenttesting methodology at [facility] than at [facility]. Direct result comparisons should onlybe made within the same method. Performed By: #### T [facility] ####[address] [address] TROPONIN I, HIGH SENSITIVITY 8 ng/L Normal 0 - 13 [facility] Comment on above: Result Comment: .Les s [...] is performed using a differenttesting methodology at [facility] than at [facility]. Direct result comparisons should onlybe made within the same method. Performed By: #### T [facility] ####[facility] [place] [address] Triage - EDon 06-14-2023 Triage - ED Normal [facility] Activated Partial Thrombopla stin Timeon 06-13-2023 aPTT Coag (PPP) [Time] 31 s 27 - 38 [facility] [place] Work Phone: Comment on above: Note new reference r sharda as of 04/06/2023 at 10:00am. Complete Blood Count + Diffe rentialon 06-13-2023 Basophils/100 WBC (Bld) 0.2 % 0.0 - 2.0 [facility] [place] Work Phone: Erythrocyte distribution width (RBC) [Ratio] 12.8 % See Below [facility] [place] Work Phone: Comment on above: Reference Range: 11. 5 - 14.5 Hematocrit (Bld) [Volume fraction] 40.1 % See Below [facility] bean [place] Work Phone: Comment on above: Reference Range: 36. 0 - 46.0 Hemoglobin (Bld) [Mass/Vol] 13.8 g/dL See Below [facility] [place] Work Phone: Comment on above: Reference Range: 12. 0 - 16.0 Lymphocytes/100 WBC (Bld) 26.0 % See Below [facility] [place] Work Phone: Comment on above: Reference Range: 13. 0 - 44.0 MCHC (RBC) [Mass/Vol] 34.4 g/dL See Below [facility] bean [place] Work Phone: Comment on above: Reference Range: 32. 0 - 36.0 MCV (RBC) [Entitic vol] 89 fL 80 - 100 [facility] [place] Work Phone: Monocytes/100 WBC (Bld) 7.4 % 2.0 - 10.0 [facility] Work Phone: Neutrophils/100 WBC (Bld) 63.4 % See Below [facility] Work Phone: Comment on above: Reference Range: 40. 0 - 80.0 Platelets (Bld) [#/Vol] 111 10*3/uL below low threshold 150 - 450 [facility] Work Phone: RBC (Bld) [#/Vol] 4.51 {x10E12/L} See Below [facility] [place] Work Phone: Comment on above: Reference Range: 4.0 0 - 5.20 WBC (Bld) [#/Vol] 5.3 10*3/uL 4.4 - 11.3 [facility] [place] Work Phone: Complete Blood Count + Differential 0.01 {x10E9/L} See Below [facility] [place] Work Phone: Comment on above: Reference Range: 0.0 0 - 0.10 Complete Blood Count + Differential 0.11 {x10E9/L} See Below [facility] [place] Work Phone: Comment on above: Reference Range: 0.0 0 - 0.70 Complete Blood Count + Differential 0.39 {x10E9/L} See Below [facility] [place] Work Phone: Comment on above: Reference Range: 0.1 0 - 1.00 Complete Blood Count + Differential 1.37 {x10E9/L} See Below [facility] [place] Work Phone: Comment on above: Reference Range: 1.2 0 - 4.80 Complete Blood Count + Differential 3.34 {x10E9/L} See Below [facility] [place] Work Phone: Comment on above: Reference Range: 1.2 0 - 7.70 Percent differential counts (%) should be interpreted in the context of the absolute cell counts (cells/L). Complete Blood Count + Differential 2.1 % 0.0 - 6.0 [facility] [place] Work Phone: Complete Blood Count + Differential 0.9 % 0.0 - 0.9 [facility] [place] Work Phone: Comment on above: Immature Granulocyte Count (IG) includes promyelocytes, myelocytes and metamyelocytes but does not include bands. Percent differential counts (%) should be interpreted in the context of the absolute cell counts (cells/L). Laboratory - Chemistry and C hemistry - challengeon 06-13-2023 Albumin BCP dye [Mass/Vol] 4.0 g/dL 3.4 - 5.0 [facility] [place] Work Phone: ALP [Catalytic activity/Vol] 66 U/L 33 - 110 [facility] [place] Work Phone: ALT With P-5'-P [Catalytic activity/Vol] 8 U/L 7 - [address] [facility] [address] [facility] [place] Work Phone: Comment on above: Patients treated wit h Sulfasalazine may generate falsely decreased results for ALT. Anion gap [Moles/Vol] 11 mmol/L 10 - 20 [facility] [place] Work Phone: AST With P-5'-P [Catalytic activity/Vol] 12 U/L 9 - 39 [facility] [place] Work Phone: Bilirubin [Mass/Vol] 0.3 mg/dL 0.0 - 1.2 [facility] bean [place] Work Phone: Calcium [Mass/Vol] 8.5 mg/dL below low threshold 8.6 - 10.3 [facility] [place] Work Phone: Chloride [Moles/Vol] 104 mmol/L 98 - 107 [facility] ehab Services-[place] Work Phone: CO2 [Moles/Vol] 26 mmol/L 21 - 32 [facility] [place] Work Phone: Creatinine [Mass/Vol] 1.11 mg/dL above high threshold See Below [facility] Work Phone: Comment on above: Reference Range: 0.5 0 - 1.05 Glucose [Mass/Vol] 95 mg/dL 74 - 99 [facility] Work Phone: Potassium [Moles/Vol] 4.2 mmol/L 3.5 - 5.3 [facility] Centers[facility] [place] Work Phone: Protein [Mass/Vol] 6.1 g/dL below low threshold 6.4 - 8.2 [facility] [place] Work Phone: Sodium [Moles/Vol] 137 mmol/L 136 - 145 [facility] Work Phone: Urea nitrogen [Mass/Vol] 19 mg/dL 6 - 23 [facility] [place] Work Phone: Laboratory - Coagulationon 0 06-13-2023 INR Coag (PPP) [Relative time] 0.9 {INR} 0.9 - 1.1 [facility] [place] Work Phone: PT Coag (PPP) [Time] 10.3 s 9.8 - 12.8 [facility] [place] Work Phone: Comment on above: Note new reference r sharda as of 04/06/2023 at 10:00am. Magnesium, Serumon Magnesium [Mass/Vol] 1.61 mg/dL See Below [facility] [place] Work Phone: Comment on above: Reference Range: 1.6 0 - 2.40 No Panel Informationon 06-13 75 pg/mL 0 - 99 [facility] Work Phone: Comment on above: . <100 pg/mL - Heart failure kghabach614-329 pg/mL - Intermediate probability of acute heart. failure exacerbation. Correlate with clinical. context and patient history. >=300 pg/mL - Heart Failure likely. Correlate with clinical. context and patient history.BNP testing is performed using different testing methodology at [facility] than at other [facility]. Direct result comparisons should only be made within the same method. 61 {mL/min/1.73m2} >90 [facility] Work Phone: Comment on above: CALCULATIONS OF FRIEDA MATED GFR ARE PERFORMED USING THE 2020 CKD-EPI STUDY REFIT EQUATION WITHOUT THE RACE VARIABLE FOR THE IDMS-TRACEABLE CREATININE METHODS.https://jasn.asnjournals.org/content/early// N.7919370139 Radiologyon 06-13-2023 XR Chest Single view Normal [facility] Work Phone: TROPONIN I, HIGH SENSITIVITY on 06-13-2023 Tropinin I.cardiac panel High sensitivity method 7 ng/L 0 - 13 [facility] [place] Work Phone: Comment on above: .Less than [...] performed using a different testing methodology at [facility] than at other system [facility]. Direct result comparisons should only be made [...] performed using a different testing methodology at [facility] than at other [facility]. Direct result comparisons should only be made [...] code time is 43 minutes. Therapeutic exercise (68865): timed minutes 15 . 1259-0032 UE ergometer on level 1 x3 minutes Passing 2.2lb ball between UE x15. Therapeutic Activity (91224):. 4532-9525 Stacking 1 inch blocks into towers of x2, x5 towers DEBORAH with 5lb resistance [id number] [facility] beading large beads onto string x12 DEBORAH. 'Scores and Scales' Signatures Electronically signed by : MANNY Rod; Jun 08 2023 4:39PM EST (Author) Normal [employer] Therapy Communicationon 05-18 Therapy Communication Message REEMA SHAH canceled today 06/04/23. No reason given. Signatures Electronically signed by : NUVIA Hernandez/Jerilyn; Jun 04 2023 9:28AM EST (Author) Normal [employer] CBC AND DIFFERENTIALon 06-02 % AUTOMATED IMMATURE GRAN 0.9 % Normal 0.0 - 0.9 [facility] Comment on above: Result Comment: Suze ture Granulocyte Count (IG) includes promyelocytes, myelocytes and metamyelocytes but does not include bands. Percent differential counts (%) should be interpreted in the context of the absolute cell counts (cells/L). Performed By: #### C BCDF ####[facility] [place] [address] Basophils (Bld) [#/Vol] 0.02 10*3/uL Normal 0.00 - 0.10 [facility] Comment on above: Performed By: #### C BCDF ####[address] [address] Basophils/100 WBC (Bld) 0.4 % Normal 0.0 - 2.0 [facility] Comment on above: Performed By: #### C BCDF ####[address] [address] Eosinophils (Bld) [#/Vol] 0.11 10*3/uL Normal 0.00 - 0.70 [facility] Comment on above: Performed By: #### C BCDF ####[address] [address] Eosinophils/100 WBC (Bld) 2.0 % Normal 0.0 - 6.0 [facility] Comment on above: Performed By: #### C BCDF ####[address] [address] Erythrocyte distribution width (RBC) [Ratio] 12.5 % Normal 11.5 - 14.5 [facility] Comment on above: Performed By: #### C BCDF ####[address] [address] Hematocrit (Bld) [Volume fraction] 43.7 % Normal 36.0 - 46.0 [facility] Comment on above: Performed By: #### C BCDF ####[address] [address] Hemoglobin (Bld) [Mass/Vol] 14.6 g/dL Normal 12.0 - 16.0 [facility] Comment on above: Performed By: #### C BCDF ####[address] [address] Lymphocytes (Bld) [#/Vol] 1.74 10*3/uL Normal 1.20 - 4.80 [facility] Comment on above: Performed By: #### C BCDF ####[address] [address] Lymphocytes/100 WBC (Bld) 31.8 % Normal 13.0 - 44.0 [facility] Comment on above: Performed By: #### C BCDF ####[address] [address] MCHC (RBC) [Mass/Vol] 33.4 g/dL Normal 32.0 - 36.0 [facility] Comment on above: Performed By: #### C BCDF ####[address] [address] MCV (RBC) [Entitic vol] 91 fL Normal 80 - 100 [facility] Comment on above: Performed By: #### C BCDF ####[address] [address] Monocytes (Bld) [#/Vol] 0.39 10*3/uL Normal 0.10 - 1.00 [facility] Comment on above: Performed By: #### C BCDF ####[address] [address] Monocytes/100 WBC (Bld) 7.1 % Normal 2.0 - 10.0 [facility] Comment on above: Performed By: #### C BCDF ####[address] [address] Neutrophils (Bld) [#/Vol] 3.16 10*3/uL Normal 1.20 - 7.70 [facility] Comment on above: Result Comment: Perc ent differential counts (%) should be interpreted in the context of the absolute cell counts (cells/L). Performed By: #### C BCDF ####[address] [address] Neutrophils/100 WBC (Bld) 57.8 % Normal 40.0 - 80.0 [facility] Comment on above: Performed By: #### C BCDF ####[address] [address] Platelets (Bld) [#/Vol] 124 10*3/uL Low 150 - 450 [facility] Comment on above: Performed By: #### C BCDF ####[address] [address] RBC 4.81 x10E12/L Normal 4.00 - 5.20 [facility] Comment on above: Performed By: #### C BCDF ####[address] [address] WBC (Bld) [#/Vol] 5.5 10*3/uL Normal 4.4 - 11.[address] [facility] Comment on above: Performed By: #### C BCDF ####[address] [address] COMPREHENSIVE PANELon 2022 Albumin [Mass/Vol] 4.3 g/dL Normal 3.4 - 5.[address] [facility] Comment on above: Performed By: #### C MP ####[address] [address] ALP [Catalytic activity/Vol] 69 U/L Normal 33 - 110 [facility] Comment on above: Performed By: #### C MP ####[address] [address] ALT [Catalytic activity/Vol] 11 U/L Normal 7 - 45 [facility] Comment on above: Result Comment: Marjan ents treated with Sulfasalazine may generate falsely decreased results for ALT. Performed By: #### C MP ####[address] [address] Anion gap [Moles/Vol] 11 mmol/L Normal 10 - 20 [facility] Comment on above: Performed By: #### C MP ####[address] [address] AST [Catalytic activity/Vol] 15 U/L Normal 9 - 39 [facility] Comment on above: Performed By: #### C MP ####[address] [address] Bilirubin [Mass/Vol] 0.3 mg/dL Normal 0.0 - 1.2 [facility] Comment on above: Performed By: #### C MP ####[address] [address] Calcium [Mass/Vol] 9.2 mg/dL Normal 8.6 - 10.[address] [facility] Comment on above: Performed By: #### C MP ####[address] [address] Chloride [Moles/Vol] 103 mmol/L Normal 98 - 107 [facility] Comment on above: Performed By: #### C MP ####[address] [address] Creatinine [Mass/Vol] 1.22 mg/dL High 0.50 - 1.05 [facility] Comment on above: Performed By: #### C MP ####[address] [address] GFR/1.73 sq M.predicted among non-blacks MDRD (S/P/Bld) [Vol rate/Area] 54 mL/min/{1.73_m2} Abnormal >90 [facility] Comment on above: Result Comment: CALC ULATIONS OF ESTIMATED GFR ARE PERFORMED USING THE 2020 CKD-EPI STUDY REFIT EQUATION WITHOUT THE RACE VARIABLE FOR THE IDMS-TRACEABLE CREATININE METHODS.https://jasn.asnjournals.org/content/early/ N.2819069277 Performed By: #### C MP ####[address] [address] Glucose [Mass/Vol] 96 mg/dL Normal 74 - [address] [facility] Comment on above: Performed By: #### C MP ####[address] [address] HCO3 (Bld) [Moles/Vol] 29 mmol/L Normal 21 - 32 [facility] Comment on above: Performed By: #### C MP ####[address] [address] Potassium [Moles/Vol] 4.9 mmol/L Normal 3.5 - 5.3 [facility] Comment on above: Performed By: #### C MP ####[address] [address] Protein [Mass/Vol] 6.1 g/dL Low 6.4 - 8.[address] [facility] Comment on above: Performed By: #### C MP ####[address] [address] Sodium [Moles/Vol] 138 mmol/L Normal 136 - [address] [facility] Comment on above: Performed By: #### C MP ####[address] [address] Urea nitrogen [Mass/Vol] 20 mg/dL Normal 6 - 23 [facility] Comment on above: Performed By: #### C MP ####[address] [address] HEMOGLOBIN A1Con 06-02-2023 Glucose [Mass/Vol] 100 mg/dL Normal [facility] Comment on above: Performed By: #### H BA1E ####[address] [address] HbA1c (Bld) [Mass fraction] 5.1 % Normal [facility] Comment on above: Result Comment: Diag nosis of Diabetes-Adults Non-Diabetic: < or = 5.6% Increased risk for developing diabetes: 5.7-6.4% Diagnostic of diabetes: > or = 6.5%. Monitoring of Diabetes Age (y) Therapeutic Goal (%) Adults: >18 <7.0 Pediatrics: 13-18 <7.5 7-12 <8.0 0- 6 7.5-8.5 [employer]. Diabetes Care 33(S1), Oct 2009. Performed By: #### H BA1E ####[address] [address] LIPID PANEL (CORONARY RISK 2 )on 06-02-2023 Cholesterol [Mass/Vol] 201 mg/dL High 0 - 199 [facility] Comment on above: Result Comment: . AG [...] Metamizole dosing. Performed By: #### L IPID ####[address] [address] Cholesterol in HDL [Mass/Vol] 42.0 mg/dL Normal [facility] Comment on above: Result Comment: . AG E VERY LOW LOW NORMAL HIGH 0-19 Y < 35 < 40 40-45 ---- 20-24 Y ---- < 40 >45 ---- >24 Y ---- < 40 40-60 >60. Performed By: #### L IPID ####[address] [address] Cholesterol in LDL [Mass/Vol] 85 mg/dL Normal 0 - 99 [facility] Comment on above: Result Comment: . FILOMENA LEMA AGE DESIRABLE OPTIMAL HIGH HIGH VERY HIGH 0-19 Y 0 - 109 --- 110-129 >/= 130 ---- 20-24 Y 0 - 119 --- 120-159 >/= 160 ---- >24 Y 0 - 99 100-129 130-159 160-189 >/=190. Performed By: #### L IPID ####[address] [address] Cholesterol in VLDL [Mass/Vol] 74 mg/dL High 0 - 40 [facility] Comment on above: Performed By: #### L IPID ####[address] [address] Cholesterol.total/Cho lesterol in HDL [Mass ratio] 4.8 {ratio} Normal [facility] Comment on above: Result Comment: REF VALUESDESIRABLE < 3.4HIGH RISK > 5.0 Performed By: #### L IPID ####[address] [address] NON-HDL CHOLESTEROL 159 mg/dL Normal [facility] Comment on above: Result Comment: AGE DESIRABLE BORDERLINE HIGH HIGH VERY HIGH 0-19 Y 0 - 119 120 - 144 >/= 145 >/= 160 20-24 Y 0 - 149 150 - 189 >/= 190 ---- >24 Y 30 MG/DL ABOVE LDL CHOLESTEROL GOAL. Performed By: #### L IPID ####[address] [address] Triglyceride [Mass/Vol] 370 mg/dL High 0 - 149 [facility] Comment on above: Result Comment: . AG [...] Metamizole dosing. Performed By: #### L IPID ####[place] [address] MAGNESIUMon 06-02-2023 Magnesium [Mass/Vol] 1.97 mg/dL Normal 1.60 - 2.40 [facility] Comment on above: Performed By: #### M G ####[place] [address] Lab Specimen Source Normal [facility] Comment on above: Performed By: #### M G ####[place] [address] Performed By: #### T HYDS ####[place] [address] Performed By: #### U VY ####[place] [address] Performed By: #### C MP ####[place] [address] Performed By: #### L IPID ####[place] [address] Performed By: #### C BCDF ####[place] [address] TSH WITH REFLEX TO FREE T4 I F ABNORMALon 06-02-2023 TSH Qn 3.40 m[IU]/L Normal 0.44 - 3.98 [facility] Comment on above: Result Comment: TSH testing is performed using different testing methodology at [facility] than at other [facility]. Direct result comparisons should only be made within the same method. Performed By: #### T HYDS ####[address] [place] [address] URIC ACIDon 06-02-2023 Urate [Mass/Vol] 3.9 mg/dL Normal 2.3 - 6.7 [facility] Comment on above: Result Comment: Nathalie puncture immediately after or during the administration of Metamizole may lead to falsely low results. Testing should be performed immediately prior to Metamizole dosing. Performed By: #### U VY ####[address] [place] [address] PT Progress Noteon 3 PT Progress Note [...] you for this referral and please call [phone] with any questions or concerns. Adult Risk [...] MMT h (more content not included)... Normal [employer] [facility] Therapy Re-eval Noteon 05-28 Therapy Re-eval Note [...] you for this referral and please call [phone] with any questions or concerns. Adult Risk [...] code time is 40 minutes. Therapeutic Activity (23459):. HEP and POC review Education on RW height and safety with transfers Ambulation throughout clinic with CGA and w/c follow. Aquatic Therapy (09921): timed minutes 40, units 3 . Patient [...] Signatures Electronically signed by : Pippa Freeman DRAMATIC TEACHER; May 21 2023 11:28AM EST (Author) Electronically [...] to ambulate across pool without noodle or HEAD CHARGER. At end of treatment , perform WATSU [...] code time is 40 minutes. Therapeutic Activity (91978):. HEP and POC review Education on RW height and safety with transfers Ambulation throughout clinic with CGA and w/c follow. Aquatic Therapy (60442): timed minutes 40, units 3 . Patient [...] Signatures Electronically signed by : Pippa Freeman, DRAMATIC TEACHER; May 19 2023 12:15PM EST (Author) Electronically signed by : Trice Tejada, PT; May 31 2023 12:59PM EST Normal [facility] PT Progress Noteon 3 PT Progress Note [...] keeps intact with ther-ex. Patient needing one HEAD CHARGER to ambulate across pool. Patient needing UE [...] code time is 41 minutes. Therapeutic Activity (24569):. HEP and POC review Education on RW height and safety with transfers Ambulation throughout clinic with CGA and w/c follow. Aquatic Therapy (66528): timed minutes 41, units 3 . Patient [...] Signatures Electronically signed by : Pippa Freeman DRAMATIC TEACHER; May 14 2023 9:13AM EST (Author) Electronically signed by : Trice Tejada, PT; May 17 2023 10:13PM EST Normal [employer] Therapy Communicationon 07- Therapy Communication Message REEMA SHAH canceled today . Patient canceled secondary to illness. JW. Signatures Electronically signed by : Salma Gamboa PTA; May 11 2023 2:31PM EST (Author) Normal [employer] [facility] PT Progress Noteon 3 PT Progress Note [...] code time is 40 minutes. Therapeutic Activity (82497):. HEP and POC review Education on RW height and safety with transfers Ambulation throughout clinic with CGA and w/c follow. Aquatic Therapy (88376): timed minutes 40, units 3 . Patient [...] Progress Note No report was sent Normal [employer] [facility] Therapy Communicationon 04-17 Therapy Communication Message REEMA SHAH canceled today schedule conflict. Signatures Electronically signed by : Pippa Freeman PTA; May 05 2023 11:32AM EST (Author) Normal [facility] LMPon 04-30-2023 Last menstrual period start date IUD [facility] [address] [place] Work Phone: PART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 - Office Visiton 04-17 PART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 - Office Visit Provider Kelsey white [...] ambulating up/down steps with one HR and HEAD CHARGER to enter/exit pool. Patient ambulating across pool with one HEAD CHARGER. Patient has good form/understanding with ther-ex. Patient [...] you for this referral and please call [phone] with any questions or concerns. -Trice Tejada [...] ambulating up/down steps with one HR and HEAD CHARGER to enter/exit pool. Patient ambulating across pool with one HEAD CHARGER. Patient has good form/understanding with ther-ex. Patient [...] you for this referral and please call [phone] with any questions or concerns. -Trice Tejada [...] Denotes Pain with Movement) Hand Dominance: Right Arrow Point Attacher Strength: level III 35 lbs on the [...] SALAS. Treat (more content not included)... Normal [employer] [facility] PT Progress Noteon 3 PT Progress Note [...] ambulate up/down steps with one HR and HEAD CHARGER. Patient has good form/understanding with ther-ex. Patient able to ambulate across pool with one HEAD CHARGER. Patient tolerates watsu at end of therapy [...] code time is 40 minutes. Therapeutic Activity (09860):. HEP and POC review Education on RW height and safety with transfers Ambulation throughout clinic with CGA and w/c follow. Aquatic Therapy (35855): timed minutes 40, units 3 . Patient [...] Signatures Electronically signed by : Pippa Freeman DRAMATIC TEACHER; Apr 26 2023 1:05PM EST (Author) Electronically signed by : Trice Tejada PT; Apr 26 2023 4:32PM EST (Author) Normal [facility] PT Progress Noteon 3 PT Progress Note [...] keeps intact with ther-ex. Patient ambulating with HEAD CHARGER from W/C to pool steps. Patient enter/exits pool uses steps with one HR, SBA. Patient ambulates across pool with HEAD CHARGER. Patient needing one UE support with LE [...] code time is 41 minutes. Therapeutic Activity (28472):. HEP and POC review Education on RW height and safety with transfers Ambulation throughout clinic with CGA and w/c follow. Aquatic Therapy (43482): timed minutes 41, units 3 . Patient [...] to view the study images Normal [facility] [place] Work Phone: US PELVISon 04-15-[address] [facility] PELVIS TRANSABDOMINAL WIT H TRANSVAGINALon 04-15-2023 PELVIS TRANSABDOMINAL WITH TRANSVAGINAL Normal [facility] PT Progress Noteon 3 PT Progress [...] treatment without increased pain. Patient ambulates with HEAD CHARGER into pool, up/down steps with hand held [...] code time is 41 minutes. Therapeutic Activity (29734):. HEP and POC review Education on RW height and safety with transfers Ambulation throughout clinic with CGA and w/c follow. Aquatic Therapy (95577): timed minutes 41, units 3 . Patient [...] Signatures Electronically signed by : Pippa Freeman DRAMATIC TEACHER; Apr 09 2023 10:47AM EST (Author) Electronically signed by : Trice Tejada PT; Apr 16 2023 1:21PM EST Normal [employer] [facility] PT Progress Noteon 3 PT Progress Note [...] Patient enter/exited pool using pool steps with HEAD CHARGER. Good tech/safety. Patient needing HEAD CHARGER to ambulate across pool. Patient using no [...] code time is 40 minutes. Therapeutic Activity (16401):. HEP and POC review Education on RW height and safety with transfers Ambulation throughout clinic with CGA and w/c follow. Aquatic Therapy (69303): timed minutes 40, units 3 . Patient [...] identified Cx Nom (U) [facility] [address] [employer] Work Phone: URINE CULTURE,BACTERIALon URINE CULTURE,BACTERIAL [facility] PATIENT: REEMA SHAH LOCATION: [facility] [place] BILL#: [id number] : 71 AGE: SEX: F ORDERED BY: MATTHEW PÉREZ SOURCE: URINE COLLECTED: 04/06/23 07:00 ANTIBIOTICS AT KAREN.: RECEIVED : 04/06/23 12:08 SITE: Clean Catch/Voided R E S U L T S URINE CULTURE,BACTERIAL FINAL 04/07/23 08:07 NO SIGNIFICANT GROWTH. Normal [facility] Comment on above: Performed By: #### P TH #### [facility] [address] [place], [place] Cult, Genitalon 04-05-2023 Bacteria identified Aer cx Nom (Genital specimen) [employer] [facility] [address] [employer] Work Phone: GENITAL CULTURE, BACT.on GENITAL CULTURE, BACT. PATIENT: REEMA SHAH LOCATION: [id number] BILL#: [id number] : 71 AGE: SEX: F ORDERED BY: MATTHEW PÉREZ SOURCE: GENITAL COLLECTED: 04/05/23 14:09 ANTIBIOTICS AT KAREN.: RECEIVED : 04/06/23 12:57 SITE: Vaginal R E S U L T S GENITAL CULTURE, BACT. FINAL 04/09/23 14:45 NO PATHOGENS Culture examined for Group A Streptococcus, Group B Streptococcus, Neisseria gonorrhoeae and Yeast ONLY. Normal [facility] Comment on above: Performed By: #### G ENLO #### [facility] [address] [place] [address] LMPon 04-05-2023 Last menstrual period start date IUD [facility] [address] [employer] Work Phone: PART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 - Office Visiton 03-18 PART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 - Office Visit Diagnoses/Problems Assessed Pelvic [...] code time is 40 minutes. Therapeutic Activity (05570):. Below not performed HEP and POC review Education on RW height and safety with transfers Ambulation throughout clinic with CGA and w/c follow. Aquatic Therapy (69095): timed minutes 40, units 3 . Patient [...] Signatures Electronically signed by : Pippa Freeman, DRAMATIC TEACHER; Apr 02 2023 10:48AM EST (Author) Electronically signed by : Trice Tejada, PT; Apr 16 2023 1:20PM EST (Author) Normal [facility] CBC AND DIFFERENTIALon 04-01 % AUTOMATED IMMATURE GRAN 0.4 % Normal 0.0 - 0.9 [facility] Comment on above: Result Comment: Suze ture Granulocyte Count (IG) includes promyelocytes, myelocytes and metamyelocytes but does not include bands. Percent differential counts (%) should be interpreted in the context of the absolute cell counts (cells/L). Performed By: #### C BCDF ####[address] [address] Basophils (Bld) [#/Vol] 0.02 10*3/uL Normal 0.00 - 0.10 [facility] Comment on above: Performed By: #### C BCDF ####[address] [address] Basophils/100 WBC (Bld) 0.2 % Normal 0.0 - 2.0 [facility] Comment on above: Performed By: #### C BCDF ####[address] [address] Eosinophils (Bld) [#/Vol] 0.02 10*3/uL Normal 0.00 - 0.70 [facility] Comment on above: Performed By: #### C BCDF ####[address] [address] Eosinophils/100 WBC (Bld) 0.2 % Normal 0.0 - 6.0 [facility] Comment on above: Performed By: #### C BCDF ####[address] [address] Erythrocyte distribution width (RBC) [Ratio] 12.8 % Normal 11.5 - 14.5 [facility] Comment on above: Performed By: #### C BCDF ####[address] [address] Hematocrit (Bld) [Volume fraction] 44.6 % Normal 36.0 - 46.0 [facility] Comment on above: Performed By: #### C BCDF ####[address] [address] Hemoglobin (Bld) [Mass/Vol] 15.1 g/dL Normal 12.0 - 16.0 [facility] Comment on above: Performed By: #### C BCDF ####[address] [address] Lymphocytes (Bld) [#/Vol] 1.90 10*3/uL Normal 1.20 - 4.80 [facility] Comment on above: Performed By: #### C BCDF ####[address] [address] Lymphocytes/100 WBC (Bld) 16.7 % Normal 13.0 - 44.0 [facility] Comment on above: Performed By: #### C BCDF ####[address] [address] MCHC (RBC) [Mass/Vol] 33.9 g/dL Normal 32.0 - 36.0 [facility] Comment on above: Performed By: #### C BCDF ####[address] [address] MCV (RBC) [Entitic vol] 91 fL Normal 80 - 100 [facility] Comment on above: Performed By: #### C BCDF ####[address] [address] Monocytes (Bld) [#/Vol] 0.94 10*3/uL Normal 0.10 - 1.00 [facility] Comment on above: Performed By: #### C BCDF ####[address] [address] Monocytes/100 WBC (Bld) 8.3 % Normal 2.0 - 10.0 [facility] Comment on above: Performed By: #### C BCDF ####[address] [address] Neutrophils (Bld) [#/Vol] 8.44 10*3/uL High 1.20 - 7.70 [facility] Comment on above: Result Comment: Perc ent differential counts (%) should be interpreted in the context of the absolute cell counts (cells/L). Performed By: #### C BCDF ####[address] [address] Neutrophils/100 WBC (Bld) 74.2 % Normal 40.0 - 80.0 [facility] Comment on above: Performed By: #### C BCDF ####[address] [address] Platelets (Bld) [#/Vol] 151 10*3/uL Normal 150 - 450 [facility] Comment on above: Performed By: #### C BCDF ####[address] [address] RBC 4.93 x10E12/L Normal 4.00 - 5.20 [facility] Comment on above: Performed By: #### C BCDF ####[address] [address] WBC (Bld) [#/Vol] 11.4 10*3/uL High 4.4 - 11.3 [facility] Comment on above: Performed By: #### C BCDF ####[address] [address] COMPREHENSIVE PANELon 2022 Albumin [Mass/Vol] 4.7 g/dL Normal 3.4 - 5.[address] [facility] Comment on above: Performed By: #### C MP ####[address] [address] ALP [Catalytic activity/Vol] 73 U/L Normal 33 - 110 [facility] Comment on above: Performed By: #### C MP ####[address] [address] ALT [Catalytic activity/Vol] 18 U/L Normal 7 - 45 [facility] Comment on above: Result Comment: Marjan ents treated with Sulfasalazine may generate falsely decreased results for ALT. Performed By: #### C MP ####[address] [address] Anion gap [Moles/Vol] 19 mmol/L Normal 10 - 20 [facility] Comment on above: Performed By: #### C MP ####[address] [address] AST [Catalytic activity/Vol] 20 U/L Normal 9 - 39 [facility] Comment on above: Performed By: #### C MP ####[address] [address] Bilirubin [Mass/Vol] 0.5 mg/dL Normal 0.0 - 1.2 [facility] Comment on above: Performed By: #### C MP ####[address] [address] Calcium [Mass/Vol] 9.8 mg/dL Normal 8.6 - 10.[address] [facility] Comment on above: Performed By: #### C MP ####[address] [address] Chloride [Moles/Vol] 99 mmol/L Normal 98 - 107 [facility] Comment on above: Performed By: #### C MP ####[address] [address] Creatinine [Mass/Vol] 1.57 mg/dL High 0.50 - 1.05 [facility] Comment on above: Performed By: #### C MP ####[address] [address] GFR/1.73 sq M.predicted among non-blacks MDRD (S/P/Bld) [Vol rate/Area] 40 mL/min/{1.73_m2} Abnormal >90 [facility] Comment on above: Result Comment: CALC ULATIONS OF ESTIMATED GFR ARE PERFORMED USING THE 2020 CKD-EPI STUDY REFIT EQUATION WITHOUT THE RACE VARIABLE FOR THE IDMS-TRACEABLE CREATININE METHODS.https://jasn.asnjournals.org/content/early/ N.0363797519 Performed By: #### C MP ####[address] [address] Glucose [Mass/Vol] 104 mg/dL High 74 - [address] [facility] Comment on above: Performed By: #### C MP ####[address] [address] HCO3 (Bld) [Moles/Vol] 22 mmol/L Normal 21 - 32 [facility] Comment on above: Performed By: #### C MP ####[address] [address] Potassium [Moles/Vol] 4.4 mmol/L Normal 3.5 - 5.3 [facility] Comment on above: Performed By: #### C MP ####[address] [address] Protein [Mass/Vol] 7.2 g/dL Normal 6.4 - 8.[address] [facility] Comment on above: Performed By: #### C MP ####[address] [address] Sodium [Moles/Vol] 136 mmol/L Normal 136 - [address] [facility] Comment on above: Performed By: #### C MP ####[address] [address] Urea nitrogen [Mass/Vol] 23 mg/dL Normal 6 - 23 [facility] Comment on above: Performed By: #### C MP ####[address] [address] Complete Blood Count + Diffe laureen 04-01-2023 Basophils/100 WBC (Bld) 0.2 % 0.0 - 2.0 [facility] [place] Work Phone: Erythrocyte distribution width (RBC) [Ratio] 12.8 % See Below [facility] Work Phone: Comment on above: Reference Range: 11. 5 - 14.5 Hematocrit (Bld) [Volume fraction] 44.6 % See Below [facility] Work Phone: Comment on above: Reference Range: 36. 0 - 46.0 Hemoglobin (Bld) [Mass/Vol] 15.1 g/dL See Below [facility] Work Phone: Comment on above: Reference Range: 12. 0 - 16.0 Lymphocytes/100 WBC (Bld) 16.7 % See Below [facility] Work Phone: Comment on above: Reference Range: 13. 0 - 44.0 MCHC (RBC) [Mass/Vol] 33.9 g/dL See Below [facility] Work Phone: Comment on above: Reference Range: 32. 0 - 36.0 MCV (RBC) [Entitic vol] 91 fL 80 - 100 [facility] Work Phone: Monocytes/100 WBC (Bld) 8.3 % 2.0 - 10.0 [facility] Work Phone: Neutrophils/100 WBC (Bld) 74.2 % See Below [facility] Work Phone: Comment on above: Reference Range: 40. 0 - 80.0 Platelets (Bld) [#/Vol] 151 10*3/uL 150 - 450 [facility] Work Phone: RBC (Bld) [#/Vol] 4.93 {x10E12/L} See Below [facility] Work Phone: Comment on above: Reference Range: 4.0 0 - 5.20 WBC (Bld) [#/Vol] 11.4 10*3/uL above high threshold 4.4 - 11.3 [facility] Work Phone: Complete Blood Count + Differential 0.02 {x10E9/L} See Below [facility] Work Phone: Comment on above: Reference Range: 0.0 0 - 0.10 Reference Range: 0.0 0 - 0.70 Complete Blood Count + Differential 0.94 {x10E9/L} See Below [facility] Work Phone: Comment on above: Reference Range: 0.1 0 - 1.00 Complete Blood Count + Differential 1.90 {x10E9/L} See Below [facility] Work Phone: Comment on above: Reference Range: 1.2 0 - 4.80 Complete Blood Count + Differential 8.44 {x10E9/L} above high threshold See Below [facility] Work Phone: Comment on above: Reference Range: 1.2 0 - 7.70 Percent differential counts (%) should be interpreted in the context of the absolute cell counts (cells/L). Complete Blood Count + Differential 0.2 % 0.0 - 6.0 [facility] Work Phone: Complete Blood Count + Differential 0.4 % 0.0 - 0.9 [facility] Work Phone: Comment on above: Immature Granulocyte Count (IG) includes promyelocytes, myelocytes and metamyelocytes but does not include bands. Percent differential counts (%) should be interpreted in the context of the absolute cell counts (cells/L). LACTATEon 04-01-2023 Lactate [Moles/Vol] 0.9 mmol/L Normal 0.4 - 2.0 [facility] Comment on above: Result Comment: Nathalie puncture immediately after or during the administration of Metamizole may lead to falsely low results. Testing should be performed immediately prior to Metamizole dosing. Performed By: #### L ACT ####[place] [address] Lactate [Moles/Vol] 2.7 mmol/L High 0.4 - 2.0 [facility] Comment on above: Result Comment: Nathalie puncture immediately after or during the administration of Metamizole may lead to falsely low results. Testing should be performed immediately prior to Metamizole dosing. Performed By: #### L ACT ####[address] [place] [address] LDHon 04-01-2023 LDH Canceled Normal [facility] Comment on above: Order Comment: TEST LDH WAS CANCELLED, 04/01/2023 02:14 Performed By: #### L DH ####[address] [place] [address] Laboratory - Chemistry and C hemistry - challengeon 04-01-2023 Albumin BCP dye [Mass/Vol] 4.7 g/dL 3.4 - 5.0 [facility] bean [employer] Work Phone: ALP [Catalytic activity/Vol] 73 U/L 33 - 110 [facility] [employer] Work Phone: ALT With P-5'-P [Catalytic activity/Vol] 18 U/L 7 - 45 [facility] bean [employer] Work Phone: Comment on above: Patients treated wit h Sulfasalazine may generate falsely decreased results for ALT. Anion gap [Moles/Vol] 19 mmol/L 10 - 20 [facility] [employer] Work Phone: AST With P-5'-P [Catalytic activity/Vol] 20 U/L 9 - 39 [facility] bean [employer] Work Phone: Bilirubin [Mass/Vol] 0.5 mg/dL 0.0 - 1.2 R [facility] bean [employer] Work Phone: Calcium [Mass/Vol] 9.8 mg/dL 8.6 - 10.3 Rakesh [facility] bean [employer] Work Phone: Chloride [Moles/Vol] 99 mmol/L 98 - 107 [facility] bean [employer] Work Phone: CO2 [Moles/Vol] 22 mmol/L 21 - 32 [facility] bean [employer] Work Phone: Creatinine [Mass/Vol] 1.57 mg/dL above high threshold See Below [facility] bean [place] Work Phone: Comment on above: Reference Range: 0.5 0 - 1.05 Glucose [Mass/Vol] 104 mg/dL above high threshold 74 - 99 [facility] bean [place] Work Phone: Potassium [Moles/Vol] 4.4 mmol/L 3.5 - 5.[address] [facility] [place] Work Phone: Protein [Mass/Vol] 7.2 g/dL 6.4 - 8.2 [facility] Work Phone: Sodium [Moles/Vol] 136 mmol/L 136 - 145 [facility] [place] Work Phone: Urea nitrogen [Mass/Vol] 23 mg/dL 6 - 23 [facility] bean [place] Work Phone: Lactate, Levelon 04-01-2023 Lactate [Moles/Vol] 0.9 mmol/L 0.4 - 2.0 [facility] hab [facility] bean [place] Work Phone: Comment on above: Venipuncture immedia tely after or during the administration of Metamizole may lead to falsely low results. Testing should be performed immediately prior to Metamizole dosing. Lactate [Moles/Vol] 2.7 mmol/L above high threshold 0.4 - 2.0 [facility] [place] Work Phone: Comment on above: Venipuncture immedia tely after or during the administration of Metamizole may lead to falsely low results. Testing should be performed immediately prior to Metamizole dosing. No Panel Informationon 04-01 40 {mL/min/1.73m2} Abnormal >90 [facility] bean [place] Work Phone: Comment on above: CALCULATIONS OF FRIEDA MATED GFR ARE PERFORMED USING THE 2020 CKD-EPI STUDY REFIT EQUATION WITHOUT THE RACE VARIABLE FOR THE IDMS-TRACEABLE CREATININE METHODS.https://jasn.asnjournals.org/content// N.7847563582 Provider Note - ED v3on - Provider Note - ED v3 Normal [facility] Risk Screen - Adult Emergenc yon 04-01-2023 Risk Screen - Adult Emergency Normal [facility] TSHon 04-01-2023 TSH Qn 2.89 m[IU]/L Normal 0.44 - 3.98 [facility] Comment on above: Result Comment: TSH testing is performed using different testing methodology at [facility] than at [facility]. Direct result comparisons should only be made within the same method. Performed By: #### T SH2 ####[address] [place] [id number] TSH - Thyroid Stimulating Ho rmone, Serumon 04-01-2023 TSH Qn 2.89 m[IU]/L See Below [facility] Work Phone: Comment on above: Reference Range: 0.4 4 - 3.98 TSH testing is performed using different testing methodology at [facility] than at other [facility]. Direct result comparisons should only be made within the same method. Triage - EDon 04-01-2023 Triage - ED Normal [facility] Therapy Communicationon Therapy Communication Message REEMA SHAH [...] that she would be able to attend Basim's next appointment with her and assist her. [...] code time is 39 minutes. Therapeutic Activity (34676):. HEP and POC review Education on RW height and safety with transfers Ambulation throughout clinic with CGA and w/c follow. Aquatic Therapy (09842): timed minutes 39, units 3 . Patient [...] Signatures Electronically signed by : Pippa Freeman DRAMATIC TEACHER; Mar 19 2023 10:03AM EST (Author) Electronically [...] you for this referral and please call [phone] with any questions or concerns. Adult Risk [...] re (more content not included)... Normal [facility] [employer] Therapy Re-eval Noteon 03-10 Therapy Re-eval Note [...] you for this referral and please call [phone] with any questions or concerns. Adult Risk [...] code time is 40 minutes. Therapeutic Activity (12983):. HEP and POC review Education on RW height and safety with transfers Ambulation throughout clinic with CGA and w/c follow. Aquatic Therapy (29849): timed minutes 40, units 3 . Patient [...] Signatures Electronically signed by : Pippa Freeman, DRAMATIC TEACHER; Mar 08 2023 2:05PM EST (Author) Electronically signed by : Trice Tejada, PT; Mar 12 2023 6:50PM EST Normal [employer] PT Progress Noteon 3 PT Progress Note [...] enter/exit pool. Patient needing one noodle and HEAD CHARGER to ambulate across pool. Patient with improved [...] code time is 40 minutes. Therapeutic Activity (31296):. HEP and POC review Education on RW height and safety with transfers Ambulation throughout clinic with CGA and w/c follow. Aquatic Therapy (87681): timed minutes 40, units 3 . Patient [...] Signatures Electronically signed by : Pippa Freeman, DRAMATIC TEACHER; Mar 03 2023 10:48AM EST (Author) Electronically signed by : Trice Tejada, PT; Mar 03 2023 5:39PM EST Normal [employer] PT Progress Noteon 3 PT Progress Note [...] enter/exit pool. Patient needing one noodle and HEAD CHARGER to ambulate across pool. Patient needing to [...] code time is 40 minutes. Therapeutic Activity (40965):. HEP and POC review Education on RW height and safety with transfers Ambulation throughout clinic with CGA and w/c follow. Aquatic Therapy (62526): timed minutes 40, units 3 . Patient [...] enter/exit pool. Patient needing one noddle and HEAD CHARGER to ambulate across pool. Patient needing one [...] code time is 40 minutes. Therapeutic Activity (34213):. HEP and POC review Education on RW height and safety with transfers Ambulation throughout clinic with CGA and w/c follow. Aquatic Therapy (28213): timed minutes 40, units 3 . Patient [...] Signatures Electronically signed by : Pippa Freeman, DRAMATIC TEACHER; Feb 26 2023 11:33AM EST (Author) Electronically [...] having her blood pressure checked at the [facility] Her blood pressure is ranging on the [...] use status HS b) No [facility]-Neph[facility]- [facility] Mohinder 3 DO Work Phone: APTTon 02-20-2023 aPTT Coag (Bld) [Time] 33 s Normal 26 - 39 [facility] Comment on above: Result Comment: THE APTT IS NO LONGER USED FOR MONITORING UNFRACTIONATED HEPARIN THERAPY. FOR MONITORING HEPARIN THERAPY, USE THE HEPARIN ASSAY. Performed By: #### A PTT ####[address] [address] Activated Partial Thrombopla stin Timeon 02-20-2023 aPTT Coag (PPP) [Time] 33 s 26 - 39 -Nephrology- [facility] Mohinder 3 DO Work Phone: Comment on above: THE APTT IS NO LONGE R USED FOR MONITORING UNFRACTIONATED HEPARIN THERAPY. FOR MONITORING HEPARIN THERAPY, USE THE HEPARIN ASSAY. BNPon 02-20-2023 Natriuretic peptide B (Bld) [Mass/Vol] 27 pg/mL Normal 0 - 99 [facility] Comment on above: Result Comment: . <1 00 pg/mL - Heart failure [id number] pg/mL - Intermediate probability of acute heart. failure exacerbation. Correlate with clinical. context and patient history. >=300 pg/mL - Heart Failure likely. Correlate with clinical. context and patient history.BNP testing is performed using different testingmethodology at [facility] than at [facility]. Direct result comparisons shouldonly be made within the same method. Performed By: #### B NP2 ####[address] [address] CBC AND DIFFERENTIALon 02-20 % AUTOMATED IMMATURE GRAN 1.0 % High 0.0 - 0.9 [facility] Comment on above: Result Comment: Suze ture Granulocyte Count (IG) includes promyelocytes, myelocytes and metamyelocytes but does not include bands. Percent differential counts (%) should be interpreted in the context of the absolute cell counts (cells/L). Performed By: #### C BCDF ####[address] [address] Basophils (Bld) [#/Vol] 0.02 10*3/uL Normal 0.00 - 0.10 [facility] Comment on above: Performed By: #### C BCDF ####[address] [address] Basophils/100 WBC (Bld) 0.4 % Normal 0.0 - 2.0 [facility] Comment on above: Performed By: #### C BCDF ####[address] [address] Eosinophils (Bld) [#/Vol] 0.11 10*3/uL Normal 0.00 - 0.70 [facility] Comment on above: Performed By: #### C BCDF ####[address] [address] Eosinophils/100 WBC (Bld) 2.2 % Normal 0.0 - 6.0 [facility] Comment on above: Performed By: #### C BCDF ####[address] [address] Erythrocyte distribution width (RBC) [Ratio] 13.5 % Normal 11.5 - 14.5 [facility] Comment on above: Performed By: #### C BCDF ####[address] [address] Hematocrit (Bld) [Volume fraction] 39.4 % Normal 36.0 - 46.0 [facility] Comment on above: Performed By: #### C BCDF ####[address] [address] Hemoglobin (Bld) [Mass/Vol] 13.3 g/dL Normal 12.0 - 16.0 [facility] Comment on above: Performed By: #### C BCDF ####[address] [address] Lymphocytes (Bld) [#/Vol] 1.60 10*3/uL Normal 1.20 - 4.80 [facility] Comment on above: Performed By: #### C BCDF ####[address] [address] Lymphocytes/100 WBC (Bld) 31.4 % Normal 13.0 - 44.0 [facility] Comment on above: Performed By: #### C BCDF ####[address] [address] MCHC (RBC) [Mass/Vol] 33.8 g/dL Normal 32.0 - 36.0 [facility] Comment on above: Performed By: #### C BCDF ####[address] [address] MCV (RBC) [Entitic vol] 89 fL Normal 80 - 100 [facility] Comment on above: Performed By: #### C BCDF ####[address] [address] Monocytes (Bld) [#/Vol] 0.49 10*3/uL Normal 0.10 - 1.00 [facility] Comment on above: Performed By: #### C BCDF ####[address] [address] Monocytes/100 WBC (Bld) 9.6 % Normal 2.0 - 10.0 [facility] Comment on above: Performed By: #### C BCDF ####[address] [address] Neutrophils (Bld) [#/Vol] 2.82 10*3/uL Normal 1.20 - 7.70 [facility] Comment on above: Result Comment: Perc ent differential counts (%) should be interpreted in the context of the absolute cell counts (cells/L). Performed By: #### C BCDF ####[address] [address] Neutrophils/100 WBC (Bld) 55.4 % Normal 40.0 - 80.0 [facility] Comment on above: Performed By: #### C BCDF ####[address] [address] Platelets (Bld) [#/Vol] 112 10*3/uL Low 150 - 450 [facility] Comment on above: Result Comment: Plat elet count may be higher than reported due to presence of PlateletClumps. Performed By: #### C BCDF ####[address] [address] RBC 4.41 x10E12/L Normal 4.00 - 5.20 [facility] Comment on above: Performed By: #### C BCDF ####[address] [address] WBC (Bld) [#/Vol] 5.1 10*3/uL Normal 4.4 - 11.[address] [facility] Comment on above: Performed By: #### C BCDF ####[place] [id number] CHEST 1 VIEWon 02-20-2023 CHEST 1 VIEW Normal [facility] COMPREHENSIVE PANELon 2022 Albumin [Mass/Vol] 3.9 g/dL Normal 3.4 - 5.[address] [facility] Comment on above: Performed By: #### C MP ####[place] [id number] ALP [Catalytic activity/Vol] 70 U/L Normal 33 - 110 [facility] Comment on above: Performed By: #### C MP ####[address] [address] ALT [Catalytic activity/Vol] 13 U/L Normal 7 - 45 [facility] Comment on above: Result Comment: Marjan ents treated with Sulfasalazine may generate falsely decreased results for ALT. Performed By: #### C MP ####[address] [address] Anion gap [Moles/Vol] 12 mmol/L Normal 10 - 20 [facility] Comment on above: Performed By: #### C MP ####[address] [address] AST [Catalytic activity/Vol] 17 U/L Normal 9 - 39 [facility] Comment on above: Performed By: #### C MP ####[address] [address] Bilirubin [Mass/Vol] 0.3 mg/dL Normal 0.0 - 1.2 [facility] Comment on above: Performed By: #### C MP ####[address] [address] Calcium [Mass/Vol] 9.2 mg/dL Normal 8.6 - 10.[address] [facility] Comment on above: Performed By: #### C MP ####[address] [address] Chloride [Moles/Vol] 103 mmol/L Normal 98 - 107 [facility] Comment on above: Performed By: #### C MP ####[address] [address] Creatinine [Mass/Vol] 1.12 mg/dL High 0.50 - 1.05 [facility] Comment on above: Performed By: #### C MP ####[address] [address] GFR/1.73 sq M.predicted among non-blacks MDRD (S/P/Bld) [Vol rate/Area] 60 mL/min/{1.73_m2} Normal >90 [facility] Comment on above: Result Comment: CALC ULATIONS OF ESTIMATED GFR ARE PERFORMED USING THE 2020 CKD-EPI STUDY REFIT EQUATION WITHOUT THE RACE VARIABLE FOR THE IDMS-TRACEABLE CREATININE METHODS.https://jasn.asnjournals.org/content/early/ N.7425471973 Performed By: #### C MP ####[address] [address] Glucose [Mass/Vol] 91 mg/dL Normal 74 - [address] [facility] Comment on above: Performed By: #### C MP ####[address] [address] HCO3 (Bld) [Moles/Vol] 25 mmol/L Normal 21 - 32 [facility] Comment on above: Performed By: #### C MP ####[address] [address] Potassium [Moles/Vol] 4.1 mmol/L Normal 3.5 - 5.3 [facility] Comment on above: Performed By: #### C MP ####[address] [address] Protein [Mass/Vol] 6.4 g/dL Normal 6.4 - 8.[address] [facility] Comment on above: Performed By: #### C MP ####[address] [place] [address] Sodium [Moles/Vol] 136 mmol/L Normal 136 - [address] [facility] Comment on above: Performed By: #### C MP ####[address] [place] [address] Urea nitrogen [Mass/Vol] 24 mg/dL High 6 - 23 [facility] Comment on above: Performed By: #### C MP ####[address] [address] Complete Blood Count + Diffe rentialon 02-20-2023 Basophils/100 WBC (Bld) 0.4 % 0.0 - 2.0 [place] [address] DO Work Phone: Erythrocyte distribution width (RBC) [Ratio] 13.5 % See Below [place] [address] DO Work Phone: Comment on above: Reference Range: 11. 5 - 14.5 Hematocrit (Bld) [Volume fraction] 39.4 % See Below [place] [address] DO Work Phone: Comment on above: Reference Range: 36. 0 - 46.0 Hemoglobin (Bld) [Mass/Vol] 13.3 g/dL See Below [place] [address] DO Work Phone: Comment on above: Reference Range: 12. 0 - 16.0 Lymphocytes/100 WBC (Bld) 31.4 % See Below [place] [address] DO Work Phone: Comment on above: Reference Range: 13. 0 - 44.0 MCHC (RBC) [Mass/Vol] 33.8 g/dL See Below [place] [address] DO Work Phone: Comment on above: Reference Range: 32. 0 - 36.0 MCV (RBC) [Entitic vol] 89 fL 80 - 100 [place] [address] DO Work Phone: Monocytes/100 WBC (Bld) 9.6 % 2.0 - 10.0 [place] [address] DO Work Phone: Neutrophils/100 WBC (Bld) 55.4 % See Below [place] [address] DO Work Phone: Comment on above: Reference Range: 40. 0 - 80.0 Platelets (Bld) [#/Vol] 112 10*3/uL below low threshold 150 - 450 [place] [address] DO Work Phone: Comment on above: Platelet count may b e higher than reported due to presence of PlateletClumps. RBC (Bld) [#/Vol] 4.41 {x10E12/L} See Below [place] [address] DO Work Phone: Comment on above: Reference Range: 4.0 0 - 5.20 WBC (Bld) [#/Vol] 5.1 10*3/uL 4.4 - 11.3 [facility] [address] DO Work Phone: Complete Blood Count + Differential 0.02 {x10E9/L} See Below [place] [address] DO Work Phone: Comment on above: Reference Range: 0.0 0 - 0.10 Complete Blood Count + Differential 0.11 {x10E9/L} See Below [place] [address] DO Work Phone: Comment on above: Reference Range: 0.0 0 - 0.70 Complete Blood Count + Differential 0.49 {x10E9/L} See Below [place] [address] DO Work Phone: Comment on above: Reference Range: 0.1 0 - 1.00 Complete Blood Count + Differential 1.60 {x10E9/L} See Below [place] [address] DO Work Phone: Comment on above: Reference Range: 1.2 0 - 4.80 Complete Blood Count + Differential 2.82 {x10E9/L} See Below [place] [address] DO Work Phone: Comment on above: Reference Range: 1.2 0 - 7.70 Percent differential counts (%) should be interpreted in the context of the absolute cell counts (cells/L). Complete Blood Count + Differential 2.2 % 0.0 - 6.0 [place] [address] DO Work Phone: Complete Blood Count + Differential 1.0 % above high threshold 0.0 - 0.9 [place] [address] DO Work Phone: Comment on above: Immature Granulocyte Count (IG) includes promyelocytes, myelocytes and metamyelocytes but does not include bands. Percent differential counts (%) should be interpreted in the context of the absolute cell counts (cells/L). D-DIMER, VTE EXCLUSIONon D-DIMER, VTE EXCLUSION <215 Normal < or = 500 [facility] Comment on above: Result Comment: The VTE [...] PE exclusion.) Performed By: #### D IMEX ####[place] [address] Laboratory - Chemistry and C hemistry - challengeon 02-20-2023 Albumin BCP dye [Mass/Vol] 3.9 g/dL 3.4 - 5.0 [place] [address] DO Work Phone: ALP [Catalytic activity/Vol] 70 U/L 33 - 110 [place] [address] DO Work Phone: ALT With P-5'-P [Catalytic activity/Vol] 13 U/L 7 - 45 [place] [address] DO Work Phone: Comment on above: Patients treated wit h Sulfasalazine may generate falsely decreased results for ALT. Anion gap [Moles/Vol] 12 mmol/L 10 - 20 [place] [address] DO Work Phone: AST With P-5'-P [Catalytic activity/Vol] 17 U/L 9 - 39 [place] [address] DO Work Phone: Bilirubin [Mass/Vol] 0.3 mg/dL 0.0 - 1.2 [place] [address] DO Work Phone: Calcium [Mass/Vol] 9.2 mg/dL 8.6 - 10.3 [place] [address] DO Work Phone: Chloride [Moles/Vol] 103 mmol/L 98 - 107 [place] [address] DO Work Phone: CO2 [Moles/Vol] 25 mmol/L 21 - 32 -Nephro [place] [address] DO Work Phone: Creatinine [Mass/Vol] 1.12 mg/dL above high threshold See Below [place] [address] DO Work Phone: Comment on above: Reference Range: 0.5 0 - 1.05 Glucose [Mass/Vol] 91 mg/dL 74 - 99 [place] [address] DO Work Phone: Potassium [Moles/Vol] 4.1 mmol/L 3.5 - 5.3 [place] [address] DO Work Phone: Protein [Mass/Vol] 6.4 g/dL 6.4 - 8.2 [place] [address] DO Work Phone: Sodium [Moles/Vol] 136 mmol/L 136 - 145 [place] [address] DO Work Phone: Urea nitrogen [Mass/Vol] 24 mg/dL above high threshold 6 - 23 [place] [address] DO Work Phone: Laboratory - Coagulationon 0 02-20-2023 INR Coag (PPP) [Relative time] 0.9 {INR} 0.9 - 1.1 [place] [address] DO Work Phone: PT Coag (PPP) [Time] 11.0 s 9.8 - 13.4 -N [place] [address] DO Work Phone: No Panel Informationon 02-20 27 pg/mL 0 - 99 [place] [address] DO Work Phone: Comment on above: . <100 pg/mL - Heart failure [id number] pg/mL - Intermediate probability of acute heart. failure exacerbation. Correlate with clinical. context and patient history. >=300 pg/mL - Heart Failure likely. Correlate with clinical. context and patient history.BNP testing is performed using different testing methodology at [facility] than at [facility]. Direct result comparisons should only be made within the same method. 60 {mL/min/1.73m2} >90 [place] [address] DO Work Phone: Comment on above: CALCULATIONS OF FRIEDA MATED GFR ARE PERFORMED USING THE 2020 CKD-EPI STUDY REFIT EQUATION WITHOUT THE RACE VARIABLE FOR THE IDMS-TRACEABLE CREATININE METHODS.https://jasn.asnjournals.org/content/early/ N.6200593676 <215 < or = 500 MP-Nephrology- [facility] Mohinder 3 DO Work Phone: Comment on [...] [Time] 11.0 s Normal 9.8 - 13.4 [facility] Comment on above: Performed By: #### P TINR ####[place] [address] PT, INR 0.9 Normal 0.9 - 1.1 [facility] Comment on above: Performed By: #### P TINR ####[address] [address] Provider Note - ED v3on Provider Note - ED v3 Normal [facility] Radiologyon 02-20-2023 XR Chest Single view Normal [facility] Mohinder 3 DO Work Phone: Risk Screen - Adult Emergenc yon 02-20-2023 Risk Screen - Adult Emergency Normal [facility] TROPONIN I, HIGH SENSITIVITY on 02-20-2023 TROPONIN I, HIGH SENSITIVITY Canceled Normal [facility] Comment on above: Order Comment: TEST TROPONIN [...] is performed using a differenttesting methodology at [facility] than at [facility]. Direct result comparisons should onlybe made within the same method. Performed By: #### T [facility] ####[address] [address] TROPONIN I, HIGH SENSITIVITY 6 ng/L Normal 0 - 13 [facility] Comment on above: Result Comment: .Les s [...] is performed using a differenttesting methodology at [facility] than at [facility]. Direct result comparisons should onlybe made within the same method. Performed By: #### T [facility] ####[address] [address] TROPONIN I, HIGH SENSITIVITY 6 ng/L Normal 0 - 13 [facility] Comment on above: Result Comment: .Les s [...] is performed using a differenttesting methodology at [facility] than [facility] Direct result comparisons should onlybe made within the same method. Performed By: #### T [facility] ####[place] [place] [address] Tropinin I.cardiac panel High sensitivity method 6 ng/L 0 - 13 [facility] [place] [employer] Mohinder 3 DO Work Phone: Comment on [...] performed using a different testing methodology at [facility] than at [facility] Direct result comparisons should only be made within the same method. Tropinin I.cardiac panel High sensitivity method 6 ng/L 0 - 13 [facility] [employer] Mohinder 3 DO Work Phone: Comment on [...] performed using a different testing methodology at [facility] than at other [facility]. Direct result comparisons should only be made within the same method. Triage - EDon 02-20-2023 Triage - ED Normal [facility] PT Progress Noteon 3 PT Progress [...] and keeps intact with ther-ex. Patient needing HEAD CHARGER with noodle to ambulate across pool. Needing [...] code time is 40 minutes. Therapeutic Activity (59552):. HEP and POC review Education on RW height and safety with transfers Ambulation throughout clinic with CGA and w/c follow. Aquatic Therapy (54116): timed minutes 40, units 3 . Patient [...] Signatures Electronically signed by : Pippa Freeman, DRAMATIC TEACHER; Feb 19 2023 11:33AM EST (Author) Electronically signed by : Trice Tejada, PT; Mar 03 2023 5:38PM EST Normal [employer] PARATHYROID HORMONE,INTACTon 02-17-2023 PARATHYROID HORMONE,INTACT 35.4 pg/mL Normal 18.5 - 88.0 [facility] Comment on above: Performed By: #### P TH #### [facility] [address] [place] [address] ALBUMIN, URINE SPOTon 2022 ALBUMIN,URINE 383.6 mg/L Normal Not Established [facility] Comment on above: Performed By: #### A LBSP #### [facility] [address] [place] [address] ALBUMIN/CREAT RATIO 245.9 ug/mg coal sampler High 0.0 - 30.0 [facility] Comment on above: Performed By: #### A LBSP #### [facility] [address] [place] [address] CREATININE,URINE 156.0 mg/dL Normal 20.0 - 320.0 [facility] Comment on above: Performed By: #### A LBSP #### [facility] [address] [place] [address] COMPREHENSIVE PANELon 2022 Albumin [Mass/Vol] 4.0 g/dL Normal 3.4 - 5.0 [facility] [place] Comment on above: Performed By: #### C MP #### [address] [address] ALP [Catalytic activity/Vol] 65 U/L Normal 33 - 110 [facility] Comment on above: Performed By: #### C MP #### [address] [address] ALT [Catalytic activity/Vol] 15 U/L Normal 7 - 45 [facility] Comment on above: Result Comment: Marjan ents treated with Sulfasalazine may generate falsely decreased results for ALT. Performed By: #### C MP #### [address] [address] Anion gap [Moles/Vol] 11 mmol/L Normal 10 - 20 [facility] Comment on above: Performed By: #### C MP #### [address] [address] AST [Catalytic activity/Vol] 19 U/L Normal 9 - 39 [facility] Comment on above: Performed By: #### C MP #### [address] [address] Bilirubin [Mass/Vol] 0.4 mg/dL Normal 0.0 - 1.2 [facility] Comment on above: Performed By: #### C MP #### [address] [address] Calcium [Mass/Vol] 9.5 mg/dL Normal 8.6 - 10.3 [facility] [place] Comment on above: Performed By: #### C MP #### [address] [address] Chloride [Moles/Vol] 101 mmol/L Normal 98 - 107 [facility] Comment on above: Performed By: #### C MP #### [address] [address] Creatinine [Mass/Vol] 1.22 mg/dL High 0.50 - 1.05 [facility] Comment on above: Performed By: #### C MP #### [address] [address] GFR/1.73 sq M.predicted among non-blacks MDRD (S/P/Bld) [Vol rate/Area] 54 mL/min/{1.73_m2} Abnormal >90 [facility] Comment on above: Result Comment: CALC ULATIONS OF ESTIMATED GFR ARE PERFORMED USING THE 2020 CKD-EPI STUDY REFIT EQUATION WITHOUT THE RACE VARIABLE FOR THE IDMS-TRACEABLE CREATININE METHODS. https://jasn.asnjournals.org/content/early//ASN.832509 7706 Performed By: #### C MP #### [address] [address] Glucose [Mass/Vol] 83 mg/dL Normal 74 - 99 [facility] [place] Comment on above: Performed By: #### C MP #### [address] [address] HCO3 (Bld) [Moles/Vol] 27 mmol/L Normal 21 - 32 [facility] Comment on above: Performed By: #### C MP #### [address] [address] Potassium [Moles/Vol] 4.3 mmol/L Normal 3.5 - 5.3 [facility] Comment on above: Performed By: #### C MP #### [address] [address] Protein [Mass/Vol] 6.8 g/dL Normal 6.4 - 8.2 [facility] [place] Comment on above: Performed By: #### C MP #### [address] [address] Sodium [Moles/Vol] 135 mmol/L Low 136 - 145 [facility] [place] Comment on above: Performed By: #### C MP #### [address] [address] Urea nitrogen [Mass/Vol] 31 mg/dL High 6 - 23 [facility] Comment on above: Performed By: #### C MP #### [address] [address] Laboratory - Chemistry and C hemistry - challengeon 02-16-2023 Albumin BCP dye [Mass/Vol] 4.0 g/dL 3.4 - 5.0 [place] [address] DO Work Phone: Albumin Ql (U) 383.6 mg/L See Below [facility] Work Phone: Comment on above: Reference Range: Not Established Albumin/Creatinine DL <= 20 mg/L (U) [Mass ratio] 245.9 {ug/mg_crt} above high threshold 0.0 - 30.0 [facility] Work Phone: ALP [Catalytic activity/Vol] 65 U/L 33 - 110 [place] [address] DO Work Phone: ALT With P-5'-P [Catalytic activity/Vol] 15 U/L 7 - 45 [place] [address] DO Work Phone: Comment on above: Patients treated wit h Sulfasalazine may generate falsely decreased results for ALT. Anion gap [Moles/Vol] 11 mmol/L 10 - 20 [place] [address] DO Work Phone: AST With P-5'-P [Catalytic activity/Vol] 19 U/L 9 - 39 [place] [address] DO Work Phone: Bilirubin [Mass/Vol] 0.4 mg/dL 0.0 - 1.2 [facility] [place] [address] DO Work Phone: Calcium [Mass/Vol] 9.5 mg/dL 8.6 - 10.3 -[place]ep [place]aren [place] [address] DO Work Phone: Chloride [Moles/Vol] 101 mmol/L 98 - 107 [facility] [place] [address] DO Work Phone: CO2 [Moles/Vol] 27 mmol/L 21 - 32 -Nephro logy- [facility] 3 DO Work Phone: Creatinine (U) [Mass/Vol] 156.0 mg/dL See Below [facility] [place] Work Phone: Comment on above: Reference Range: 20. 0 - 320.0 Creatinine [Mass/Vol] 1.22 mg/dL above high threshold See Below [facility] 3 DO Work Phone: Comment on above: Reference Range: 0.5 0 - 1.05 Glucose [Mass/Vol] 83 mg/dL 74 - 99 [facility] 3 DO Work Phone: Potassium [Moles/Vol] 4.3 mmol/L 3.5 - 5.3 [facility] Neph[place] [address] DO Work Phone: Protein [Mass/Vol] 6.8 g/dL 6.4 - 8.2 [facility] 3 DO Work Phone: Sodium [Moles/Vol] 135 mmol/L below low threshold 136 - 145 [place] [address] DO Work Phone: Urea nitrogen [Mass/Vol] 31 mg/dL above high threshold 6 - 23 [facility] 3 DO Work Phone: MAGNESIUMon 02-16-2023 Magnesium [Mass/Vol] 1.77 mg/dL Normal 1.60 - 2.40 [facility] Comment on above: Performed By: #### M G #### [address] [address] Magnesium, Serumon Magnesium [Mass/Vol] 1.77 mg/dL See Below [facility] DO Work Phone: Comment on above: Reference Range: 1.6 0 - 2.40 No Panel Informationon 02-16 54 {mL/min/1.73m2} Abnormal >90 MP-Nep hrology- [facility] 3 DO Work Phone: Comment on above: CALCULATIONS OF FRIEDA MATED GFR ARE PERFORMED USING THE 2020 CKD-EPI STUDY REFIT EQUATION WITHOUT THE RACE VARIABLE FOR THE IDMS-TRACEABLE CREATININE METHODS.https://jasn.asnjournals.org/content/early/ N.9498059959 PHOSPHORUSon 02-16-2023 Phosphate [Mass/Vol] 3.2 mg/dL Normal 2.5 - 4.9 [facility] Comment on above: Result Comment: The performance characteristics of phosphorus testing in heparinized plasma have been validated by the individual laboratory site where testing is performed. Testing on heparinized plasma is not approved by the FDA; however, such approval is not necessary. Performed By: #### P HOS #### [address] [address] Parathormone Intact, Serumon 02-16-2023 Parathyrin.intact [Mass/Vol] 35.4 pg/mL See Below [facility] Work Phone: Comment on above: Reference Range: 18. 5 - 88.0 Phosphorus, Serumon 02-17-20 23 Phosphate [Mass/Vol] 3.2 mg/dL 2.5 - 4.9 MP-N ephrology- [facility] 3 DO Work Phone: Comment on above: The performance shira acteristics of phosphorus testing in heparinized plasma have been validated by the individual laboratory site where testing is performed. Testing on heparinized plasma is not approved by the FDA; however, such approval is not necessary. UA MICROSCOPICon 02-16-2023 BACTERIA 1+ /HPF Abnormal [facility] Comment on above: Performed By: #### U AMIC #### [address] [address] HYALINE CAST 1+ /LPF Abnormal [facility] Comment on above: Performed By: #### U AMIC #### [address] [address] Mucus Ql (Urine sed) 1+ /LPF Normal [facility] Comment on above: Performed By: #### U AMIC #### [address] [address] RBC 1 /HPF Normal 0-5 [facility] Comment on above: Performed By: #### U AMIC #### [address] [address] SQUAMOUS EPITH. CELLS 24 /HPF Normal [facility] Comment on above: Performed By: #### U AMIC #### [address] [address] WBC 4 /HPF Normal 0-5 [facility] Comment on above: Performed By: #### U AMIC #### [address] [address] URIC ACIDon 02-16-2023 Urate [Mass/Vol] 4.3 mg/dL Normal 2.3 - 6.7 [facility] Comment on above: Result Comment: Nathalie puncture immediately after or during the administration of Metamizole may lead to falsely low results. Testing should be performed immediately prior to Metamizole dosing. Performed By: #### P TH #### [facility] [address] [place] [address] URINALYSISon 02-16-2023 Appearance (U) HAZY Normal CLEAR [facility] Comment on above: Performed By: #### U A #### [address] [address] Bilirubin Ql (U) Negative Normal NEGATIVE [facility] Comment on above: Performed By: #### U A #### [address] [address] Hemoglobin Ql (U) MODERATE(2+) Abnormal NEGATIVE [facility] Comment on above: Performed By: #### U A #### [address] [address] Nitrite Ql (U) Negative Normal NEGATIVE [facility] Comment on above: Performed By: #### U A #### [address] [address] Protein Ql (U) 100(2+) Abnormal NEGATIVE [facility] Comment on above: Performed By: #### U A #### [address] [address] Specific gravity (U) [Rel density] 1.021 Normal 1.005 - 1.035 [facility] Comment on above: Performed By: #### U A #### [address] [address] Urobilinogen (U) [Mass/Vol] mg/dL Normal 0.0 - 1.9 [facility] Comment on above: Performed By: #### U A #### [address] [address] Uric Acid, Serumon 3 Urate [Mass/Vol] 4.3 mg/dL 2.3 - 6.7 MP-Nephr ology- [facility] 3 DO Work Phone: Comment on above: Venipuncture immedia tely after or during the administration of Metamizole may lead to falsely low results. Testing should be performed immediately prior to Metamizole dosing. Urinalysison 02-16-2023 Color (U) Yellow Normal STRAW,YELLOW MP-Nephrolog y- [facility] 3 DO Work Phone: Comment on above: Reference Range: STR AW,YELLOW Performed By: #### U A #### [address] [address] Glucose Ql (U) Negative Normal NEGATIVE MP-Nephrol ogy- [facility] 3 DO Work Phone: Comment on above: Performed By: #### U A #### [address] [address] Ketones Ql (U) Negative Normal NEGATIVE MP-Nephrol og- [facility] 3 DO Work Phone: Comment on above: Performed By: #### U A #### [address] [address] Leukocyte esterase Test strip Ql (U) TRACE Abnormal NEGATIVE [place] [address] DO Work Phone: Comment on above: Performed By: #### U A #### [address] [address] pH (U) 5.0 [pH] Normal 5.0 - 8.0 [facility] 3 DO Work Phone: Comment on above: Performed By: #### U A #### [address] [address] Protein (U) [Mass/Vol] 100(2+) Abnormal NEGATIVE [place] [address] DO Work Phone: RBC (U) [#/Vol] MODERATE(2+) Abnormal NEGATIVE -[facility] [address] DO Work Phone: Specific gravity (U) [Rel density] 1.021 1 See Below [facility]ph[facility] [address] DO Work Phone: Comment on above: Reference Range: 1.0 05 - 1.035 Urinalysis Negative NEGATIVE [place] [address] DO Work Phone: Urinalysis <2.0 0.0 - 1.9 [facility] 3 DO Work Phone: Urinalysis HAZY CLEAR [facility]NephrologyKaren [facility] [address] DO Work Phone: Urinalysis, Microscopicon Hyaline casts LM Ql (Urine sed) 1+ Abnormal [place] [address] DO Work Phone: Urinalysis, Microscopic 1+ Abnormal [place] [address] DO Work Phone: Urinalysis, Microscopic 24 {/HPF} [facility] 3 DO Work Phone: Urinalysis, Microscopic 1 {/HPF} 0-5 [facility] 3 DO Work Phone: Urinalysis, Microscopic 4 {/HPF} 0-5 [place] [address] DO Work Phone: VITAMIN D, 25-HYDROXYon 05-0 VITAMIN D, 25-HYDROXY 44 ng/mL Normal [facility] Comment on above: Result Comment: . DEFICIENCY: < 20 NG/ML INSUFFICIENCY: 20-29 NG/ML SUFFICIENCY: 30-100 NG/ML THIS ASSAY ACCURATELY QUANTIFIES THE SUM OF VITAMIN D3, 25-HYDROXY AND VIT D2,25-HYDROXY. Performed By: #### V TDOH #### [place] [address] Vitamin D 25-Hydroxyon 02-16 25-hydroxyvitamin D3 [Mass/Vol] 44 ng/mL [place] [address] DO Work Phone: Comment on above: .DEFICIENCY: [...] pool chair. Patient needing one noodle with HEAD CHARGER to ambulate from pool chair across pool [...] code time is 40 minutes. Therapeutic Activity (87250):. HEP and POC review Education on RW height and safety with transfers Ambulation throughout clinic with CGA and w/c follow. Aquatic Therapy (10553): timed minutes 40, units 3 . Patient [...] Signatures Electronically signed by : Pippa Freeman DRAMATIC TEACHER; Feb 15 2023 2:31PM EST (Author) Electronically [...] one noodle to ambulate across pool with HEAD CHARGER. Patient needing one UE support with SBA [...] code time is 39 minutes. Therapeutic Activity (73136):. HEP and POC review Education on RW height and safety with transfers Ambulation throughout clinic with CGA and w/c follow. Aquatic Therapy (70447): timed minutes 39, units 3 . Not [...] Signatures Electronically signed by : Pippa Freeman DRAMATIC TEACHER; Feb 12 2023 8:31AM EST (Author) Electronically signed by : Trice Tejada PT; Feb 15 2023 11:33AM EST Normal [employer] CBC AND DIFFERENTIALon 02-05 % AUTOMATED IMMATURE GRAN Canceled Normal [facility] Comment on above: Order Comment: TEST CBC AND DIFFERENTIAL WAS CANCELLED, 02/05/2023 14:02 Result Comment: Suze ture Granulocyte Count (IG) includes promyelocytes, myelocytes and metamyelocytes but does not include bands. Percent differential counts (%) should be interpreted in the context of the absolute cell counts (cells/L). Performed By: #### C BCDF ####[address] [address] % BASOPHIL Canceled [facility] Comment on above: Order Comment: TEST CBC AND DIFFERENTIAL WAS CANCELLED, 02/05/2023 14:02 Performed By: #### C BCDF ####[address] [address] % EOSINOPHIL Canceled [facility] Comment on above: Order Comment: TEST CBC AND DIFFERENTIAL WAS CANCELLED, 02/05/2023 14:02 Performed By: #### C BCDF ####[address] [address] % LYMPHOCYTE Canceled [facility] Comment on above: Order Comment: TEST CBC AND DIFFERENTIAL WAS CANCELLED, 02/05/2023 14:02 Performed By: #### C BCDF ####[address] [address] % MONOCYTE Canceled [facility] Comment on above: Order Comment: TEST CBC AND DIFFERENTIAL WAS CANCELLED, 02/05/2023 14:02 Performed By: #### C BCDF ####[address] [address] % NEUTROPHIL Canceled [facility] Comment on above: Order Comment: TEST CBC AND DIFFERENTIAL WAS CANCELLED, 02/05/2023 14:02 Performed By: #### C BCDF ####[address] [address] BASOPHIL Canceled [facility] Comment on above: Order Comment: TEST CBC AND DIFFERENTIAL WAS CANCELLED, 02/05/2023 14:02 Performed By: #### C BCDF ####[place] [id number] DIFFERENTIAL Canceled [facility] Comment on above: Order Comment: TEST CBC AND DIFFERENTIAL WAS CANCELLED, 02/05/2023 14:02 Performed By: #### C BCDF ####[place] [id number] EOSINOPHIL Canceled [facility] Comment on above: Order Comment: TEST CBC AND DIFFERENTIAL WAS CANCELLED, 02/05/2023 14:02 Performed By: #### C BCDF ####[place] [id number] HCT Canceled [facility] Comment on above: Order Comment: TEST CBC AND DIFFERENTIAL WAS CANCELLED, 02/05/2023 14:02 Performed By: #### C BCDF ####[place] [id number] HGB Canceled [facility] Comment on above: Order Comment: TEST CBC AND DIFFERENTIAL WAS CANCELLED, 02/05/2023 14:02 Performed By: #### C BCDF ####[address] [address] LYMPHOCYTE Canceled [facility] Comment on above: Order Comment: TEST CBC AND DIFFERENTIAL WAS CANCELLED, 02/05/2023 14:02 Performed By: #### C BCDF ####[address] [address] MCHC Canceled [facility] Comment on above: Order Comment: TEST CBC AND DIFFERENTIAL WAS CANCELLED, 02/05/2023 14:02 Performed By: #### C BCDF ####[place] [id number] MCV Canceled [facility] Comment on above: Order Comment: TEST CBC AND DIFFERENTIAL WAS CANCELLED, 02/05/2023 14:02 Performed By: #### C BCDF ####[place] [id number] MONOCYTE Canceled [facility] Comment on above: Order Comment: TEST CBC AND DIFFERENTIAL WAS CANCELLED, 02/05/2023 14:02 Performed By: #### C BCDF ####[place] [address] NEUTROPHIL Canceled [facility] Comment on above: Order Comment: TEST CBC AND DIFFERENTIAL WAS CANCELLED, 02/05/2023 14:02 Result Comment: Perc ent differential counts (%) should be interpreted in the context of the absolute cell counts (cells/L). Performed By: #### C BCDF ####[place] [address] PLT Canceled [facility] Comment on above: Order Comment: TEST CBC AND DIFFERENTIAL WAS CANCELLED, 02/05/2023 14:02 Performed By: #### C BCDF ####[place] [address] RBC Canceled [facility] Comment on above: Order Comment: TEST CBC AND DIFFERENTIAL WAS CANCELLED, 02/05/2023 14:02 Performed By: #### C BCDF ####[place] [address] RDW-CV Canceled [facility] Comment on above: Order Comment: TEST CBC AND DIFFERENTIAL WAS CANCELLED, 02/05/2023 14:02 Performed By: #### C BCDF ####[place] [address] WBC Canceled [facility] Comment on above: Order Comment: TEST CBC AND DIFFERENTIAL WAS CANCELLED, 02/05/2023 14:02 Performed By: #### C BCDF ####[place] [id number] Clinic Note - Education Adul ton 02-04-2023 Clinic Note - Education Adult [facility] Note - Intakeon 02-04 Clinic Note - Intake Normal [facility] Note - Heme Onc-Follo w Up Visiton 02-03-2023 Clinic Note - Heme Onc-Follow Up Visit [facility] PT Progress Noteon 3 PT Progress [...] you for this referral and please call [phone] with any questions or concerns. Adult Risk [...] of R (more content not included)... Normal [employer] Therapy Re-eval Noteon 01-29 Therapy Re-eval Note [...] you for this referral and please call [phone] with any questions or concerns. Adult Risk [...] GRAN 1.0 % High 0.0 - 0.9 [facility] Comment on above: Result Comment: Suze ture Granulocyte Count (IG) includes promyelocytes, myelocytes and metamyelocytes but does not include bands. Percent differential counts (%) should be interpreted in the context of the absolute cell counts (cells/L). Performed By: #### P TH #### [facility] [address] [place] [address] Basophils (Bld) [#/Vol] 0.02 10*3/uL Normal 0.00 - 0.10 [facility] Comment on above: Performed By: #### P TH #### [facility] [address] [place] [address] Basophils/100 WBC (Bld) 0.4 % Normal 0.0 - 2.0 [facility] Comment on above: Performed By: #### P TH #### [facility] [address] [place] [address] Eosinophils (Bld) [#/Vol] 0.09 10*3/uL Normal 0.00 - 0.70 [facility] Comment on above: Performed By: #### P TH #### [facility] [address] [place] [address] Eosinophils/100 WBC (Bld) 1.7 % Normal 0.0 - 6.0 [facility] Comment on above: Performed By: #### P TH #### [facility] [address] [place] [address] Erythrocyte distribution width (RBC) [Ratio] 13.2 % Normal 11.5 - 14.5 [facility] Comment on above: Performed By: #### P TH #### [facility] [address] [place] [address] Hematocrit (Bld) [Volume fraction] 40.4 % Normal 36.0 - 46.0 [facility] Comment on above: Performed By: #### P TH #### [facility] [address] [place] [address] Hemoglobin (Bld) [Mass/Vol] 13.1 g/dL Normal 12.0 - 16.0 [facility] Comment on above: Performed By: #### P TH #### [facility] [address] [place] [address] Lymphocytes (Bld) [#/Vol] 1.73 10*3/uL Normal 1.20 - 4.80 [facility] Comment on above: Performed By: #### P TH #### [facility] [address] [place] [address] Lymphocytes/100 WBC (Bld) 33.5 % Normal 13.0 - 44.0 [facility] Comment on above: Performed By: #### P TH #### [facility] [address] [place] [address] MCHC (RBC) [Mass/Vol] 32.4 g/dL Normal 32.0 - 36.0 [facility] Comment on above: Performed By: #### P TH #### [facility] [address] [place] [address] MCV (RBC) [Entitic vol] 91 fL Normal 80 - 100 [facility] Comment on above: Performed By: #### P TH #### [facility] [address] [place] [address] Monocytes (Bld) [#/Vol] 0.51 10*3/uL Normal 0.10 - 1.00 [facility] Comment on above: Performed By: #### P TH #### [facility] [address] [place] [address] Monocytes/100 WBC (Bld) 9.9 % Normal 2.0 - 10.0 [facility] Comment on above: Performed By: #### P TH #### [facility] [address] [place] [address] Neutrophils (Bld) [#/Vol] 2.77 10*3/uL Normal 1.20 - 7.70 [facility] Comment on above: Result Comment: Perc ent differential counts (%) should be interpreted in the context of the absolute cell counts (cells/L). Performed By: #### P TH #### [facility] [address] [place] [address] Neutrophils/100 WBC (Bld) 53.5 % Normal 40.0 - 80.0 [facility] Comment on above: Performed By: #### P TH #### [facility] [address] [place] [address] Platelets (Bld) [#/Vol] 125 10*3/uL Low 150 - 450 [facility] Comment on above: Performed By: #### P TH #### [facility] [address] [place] [address] RBC 4.42 x10E12/L Normal 4.00 - 5.20 [facility] Comment on above: Performed By: #### P TH #### [facility] [address] [place] [address] WBC (Bld) [#/Vol] 5.2 10*3/uL Normal 4.4 - 11.3 [facility] [place] Comment on above: Performed By: #### P TH #### [facility] [address] [place] [address] COMPREHENSIVE PANELon 2022 Albumin [Mass/Vol] 4.0 g/dL Normal 3.4 - 5.0 [facility] [place] Comment on above: Performed By: #### P TH #### [facility] [address] [place] [address] ALP [Catalytic activity/Vol] 58 U/L Normal 33 - 110 [facility] Comment on above: Performed By: #### P TH #### [facility] [address] [place] [address] ALT [Catalytic activity/Vol] 20 U/L Normal 7 - 45 [facility] Comment on above: Result Comment: Marjan ents treated with Sulfasalazine may generate falsely decreased results for ALT. Performed By: #### P TH #### [facility] [address] [place] [address] Anion gap [Moles/Vol] 10 mmol/L Normal 10 - 20 [facility] Comment on above: Performed By: #### P TH #### [facility] [address] [place] [address] AST [Catalytic activity/Vol] 24 U/L Normal 9 - 39 [facility] Comment on above: Performed By: #### P TH #### [facility] [address] [place] [address] Bilirubin [Mass/Vol] 0.4 mg/dL Normal 0.0 - 1.2 [facility] Comment on above: Performed By: #### P TH #### [facility] [address] [place] [address] Calcium [Mass/Vol] 9.8 mg/dL Normal 8.6 - 10.3 [facility] [place] Comment on above: Performed By: #### P TH #### [facility] [address] [place] [address] Chloride [Moles/Vol] 101 mmol/L Normal 98 - 107 [facility] Comment on above: Performed By: #### P TH #### [facility] [address] [place] [address] Creatinine [Mass/Vol] 1.27 mg/dL High 0.50 - 1.05 [facility] Comment on above: Performed By: #### P TH #### [facility] [address] [place] [address] GFR/1.73 sq M.predicted among non-blacks MDRD (S/P/Bld) [Vol rate/Area] 52 mL/min/{1.73_m2} Abnormal >90 [facility] Comment on above: Result Comment: CALC ULATIONS OF ESTIMATED GFR ARE PERFORMED USING THE 2021 CKD-EPI STUDY REFIT EQUATION WITHOUT THE RACE VARIABLE FOR THE IDMS-TRACEABLE CREATININE METHODS. https://jasn.asnjournals.org/content//ASN.678017 7474 Performed By: #### P TH #### [facility] [address] [place] [address] Glucose [Mass/Vol] 80 mg/dL Normal 74 - 99 [facility] [place] Comment on above: Performed By: #### P TH #### [facility] [address] [place] [address] HCO3 (Bld) [Moles/Vol] 29 mmol/L Normal 21 - 32 [facility] Comment on above: Performed By: #### P TH #### [facility] [address] [place] [address] Potassium [Moles/Vol] 4.8 mmol/L Normal 3.5 - 5.3 [facility] Comment on above: Performed By: #### P TH #### [facility] [address] [place] [address] Protein [Mass/Vol] 6.3 g/dL Low 6.4 - 8.2 [facility] [place] Comment on above: Performed By: #### P TH #### [facility] [address] [place] [address] Sodium [Moles/Vol] 135 mmol/L Low 136 - 145 [facility] [place] Comment on above: Performed By: #### P TH #### [facility] [address] [place] [address] Urea nitrogen [Mass/Vol] 19 mg/dL Normal 6 - 23 [facility] Comment on above: Performed By: #### P TH #### [facility] [address] [place] [address] Complete Blood Count + Diffe laureen 01-27-2023 Basophils/100 WBC (Bld) 0.4 % 0.0 - 2.0 -Nephrology- [facility] 3 DO Work Phone: Erythrocyte distribution width (RBC) [Ratio] 13.2 % See Below [place] [address] DO Work Phone: Comment on above: Reference Range: 11. 5 - 14.5 Hematocrit (Bld) [Volume fraction] 40.4 % See Below [place] [address] DO Work Phone: Comment on above: Reference Range: 36. 0 - 46.0 Hemoglobin (Bld) [Mass/Vol] 13.1 g/dL See Below [place] [address] DO Work Phone: Comment on above: Reference Range: 12. 0 - 16.0 Lymphocytes/100 WBC (Bld) 33.5 % See Below [place] [address] DO Work Phone: Comment on above: Reference Range: 13. 0 - 44.0 MCHC (RBC) [Mass/Vol] 32.4 g/dL See Below [place] [address] DO Work Phone: Comment on above: Reference Range: 32. 0 - 36.0 MCV (RBC) [Entitic vol] 91 fL 80 - 100 [place] [address] DO Work Phone: Monocytes/100 WBC (Bld) 9.9 % 2.0 - 10.0 [place] [address] DO Work Phone: Neutrophils/100 WBC (Bld) 53.5 % See Below [place] [address] DO Work Phone: Comment on above: Reference Range: 40. 0 - 80.0 Platelets (Bld) [#/Vol] 125 10*3/uL below low threshold 150 - 450 [place] [address] DO Work Phone: RBC (Bld) [#/Vol] 4.42 {x10E12/L} See Below [place] [address] DO Work Phone: Comment on above: Reference Range: 4.0 0 - 5.20 WBC (Bld) [#/Vol] 5.2 10*3/uL 4.4 - 11.3 [facility] [address] [facility] Work Phone: Complete Blood Count + Differential 0.02 {x10E9/L} See Below [place] [address] DO Work Phone: Comment on above: Reference Range: 0.0 0 - 0.10 Complete Blood Count + Differential 0.09 {x10E9/L} See Below [place] [address] DO Work Phone: Comment on above: Reference Range: 0.0 0 - 0.70 Complete Blood Count + Differential 0.51 {x10E9/L} See Below [place] [address] DO Work Phone: Comment on above: Reference Range: 0.1 0 - 1.00 Complete Blood Count + Differential 1.73 {x10E9/L} See Below [place] [address] DO Work Phone: Comment on above: Reference Range: 1.2 0 - 4.80 Complete Blood Count + Differential 2.77 {x10E9/L} See Below [place] [address] DO Work Phone: Comment on above: Reference Range: 1.2 0 - 7.70 Percent differential counts (%) should be interpreted in the context of the absolute cell counts (cells/L). Complete Blood Count + Differential 1.7 % 0.0 - 6.0 [place] [address] DO Work Phone: Complete Blood Count + Differential 1.0 % above high threshold 0.0 - 0.9 [place] [address] DO Work Phone: Comment on above: Immature Granulocyte Count (IG) includes promyelocytes, myelocytes and metamyelocytes but does not include bands. Percent differential counts (%) should be interpreted in the context of the absolute cell counts (cells/L). Laboratory - Chemistry and C hemistry - challengeon 01-27-2023 Albumin BCP dye [Mass/Vol] 4.0 g/dL 3.4 - 5.0 [place] [address] DO Work Phone: ALP [Catalytic activity/Vol] 58 U/L 33 - 110 [place] [address] DO Work Phone: ALT With P-5'-P [Catalytic activity/Vol] 20 U/L 7 - 45 [place] [address] DO Work Phone: Comment on above: Patients treated wit h Sulfasalazine may generate falsely decreased results for ALT. Anion gap [Moles/Vol] 10 mmol/L 10 - 20 [place] [address] DO Work Phone: AST With P-5'-P [Catalytic activity/Vol] 24 U/L 9 - 39 [place] [address] DO Work Phone: Bilirubin [Mass/Vol] 0.4 mg/dL 0.0 - 1.2 [facility] [place] [address] DO Work Phone: Calcium [Mass/Vol] 9.8 mg/dL 8.6 - 10.3 -Nep [place]rology[place] [address] DO Work Phone: Chloride [Moles/Vol] 101 mmol/L 98 - 107 -N [place] [address] DO Work Phone: CO2 [Moles/Vol] 29 mmol/L 21 - 32 -Nephro [place]yK[place] [address] DO Work Phone: Creatinine [Mass/Vol] 1.27 mg/dL above high threshold See Below [place] [address] DO Work Phone: Comment on above: Reference Range: 0.5 0 - 1.05 Glucose [Mass/Vol] 80 mg/dL 74 - 99 [facility] 3 DO Work Phone: Potassium [Moles/Vol] 4.8 mmol/L 3.5 - 5.3 [place] [address] DO Work Phone: Protein [Mass/Vol] 6.3 g/dL below low threshold 6.4 - 8.2 [place] [address] DO Work Phone: Sodium [Moles/Vol] 135 mmol/L below low threshold 136 - 145 [place] [address] DO Work Phone: Urea nitrogen [Mass/Vol] 19 mg/dL 6 - 23 [place] [address] DO Work Phone: MAGNESIUMon 01-27-2023 Magnesium [Mass/Vol] 1.85 mg/dL Normal 1.60 - 2.40 [facility] Comment on above: Performed By: #### M G #### [place] [id number] [place] [address] Magnesium, Serumon Magnesium [Mass/Vol] 1.85 mg/dL See Below MP-[place] [address] DO Work Phone: Comment on above: Reference Range: 1.6 0 - 2.40 No Panel Informationon 01-27 52 {mL/min/1.73m2} Abnormal >90 [place] [address] DO Work Phone: Comment on above: CALCULATIONS OF FRIEDA MATED GFR ARE PERFORMED USING THE 2020 CKD-EPI STUDY REFIT EQUATION WITHOUT THE RACE VARIABLE FOR THE IDMS-TRACEABLE CREATININE METHODS.https://jasn.asnjournals.org/content// N.9671380852 VALPROIC ACIDon 01-27-2023 VALPROIC ACID 52 ug/mL Normal 50 - 100 [facility] Comment on above: Performed By: #### P #### [facility] [address] [place] [address] Valproic Acid Level, Serumon 01-27-2023 Valproate [Mass/Vol] 52 ug/mL 50 - 100 MP-N ephrology- [facility] 3 DO Work Phone: Initial Visit [...] Delayed Release Albumin, Urine Spot; Status:Active; Requested for:[id number]; Comprehensive Metabolic Panel; Status:Active; Requested for:[id number]; Magnesium, Serum; Status:Active; Requested for:[id number]; Parathormone Intact, Serum; Status:Active; Requested for:[id number]; Phosphorus, Serum; Status:Active; Requested for:[id number]; Uric Acid, Serum; Status:Active; Requested for:[id number]; Urinalysis; Status:Active; Requested for:[id number]; Vitamin D 25-Hydroxy; Status:Active; Requested for:[id number]; Stop: Doxazosin Mesylate 4 MG Oral Tablet Stop: Ergocalciferol 1.25 MG (64699 UT) Oral Capsule Stop: Lisinopril 10 MG Oral Tablet Stop: Vitamin D3 1.25 MG (88063 UT) Oral Capsule Patient Discussion/Summary Plan: 1. [...] Hx of Hypokalemia dn Hypomagnesemia Chief Complaint [employer]- REFERRED BY RAYNE LIN FOR CKD History [...] has polypharmacy She currently resides at the [facility] She has knownshe has kidneyfailure since sshe was 25 y/o. Does not take NSAIDs Does feel dizzy and lightheaded at [facility] Review of Systems Constitutional: no fever, no [...] (E87.6) H (more content not included)... Normal [employer] Tobacco Screening.on 023 Tobacco use status HS b) No MP-Nephrology- [facility] 3 DO Work Phone: CBC AND DIFFERENTIALon 01-21 % AUTOMATED IMMATURE GRAN 3.1 % High 0.0 - 0.9 [facility] Comment on above: Result Comment: Suze ture Granulocyte Count (IG) includes promyelocytes, myelocytes and metamyelocytes but does not include bands. Percent differential counts (%) should be interpreted in the context of the absolute cell counts (cells/L). Performed By: #### C BCDF ####[address] [address] Basophils (Bld) [#/Vol] 0.02 10*3/uL Normal 0.00 - 0.10 [facility] Comment on above: Performed By: #### C BCDF ####[address] [address] Basophils/100 WBC (Bld) 0.4 % Normal 0.0 - 2.0 [facility] Comment on above: Performed By: #### C BCDF ####[address] [address] Eosinophils (Bld) [#/Vol] 0.07 10*3/uL Normal 0.00 - 0.70 [facility] Comment on above: Performed By: #### C BCDF ####[address] [address] Eosinophils/100 WBC (Bld) 1.5 % Normal 0.0 - 6.0 [facility] Comment on above: Performed By: #### C BCDF ####[address] [address] Erythrocyte distribution width (RBC) [Ratio] 12.5 % Normal 11.5 - 14.5 [facility] Comment on above: Performed By: #### C BCDF ####[address] [address] Hematocrit (Bld) [Volume fraction] 38.1 % Normal 36.0 - 46.0 [facility] Comment on above: Performed By: #### C BCDF ####[address] [address] Hemoglobin (Bld) [Mass/Vol] 12.6 g/dL Normal 12.0 - 16.0 [facility] Comment on above: Performed By: #### C BCDF ####[address] [address] Lymphocytes (Bld) [#/Vol] 1.42 10*3/uL Normal 1.20 - 4.80 [facility] Comment on above: Performed By: #### C BCDF ####[address] [address] Lymphocytes/100 WBC (Bld) 31.1 % Normal 13.0 - 44.0 [facility] Comment on above: Performed By: #### C BCDF ####[address] [address] MCHC (RBC) [Mass/Vol] 33.1 g/dL Normal 32.0 - 36.0 [facility] Comment on above: Performed By: #### C BCDF ####[address] [address] MCV (RBC) [Entitic vol] 90 fL Normal 80 - 100 [facility] Comment on above: Performed By: #### C BCDF ####[address] [address] Monocytes (Bld) [#/Vol] 0.44 10*3/uL Normal 0.10 - 1.00 [facility] Comment on above: Performed By: #### C BCDF ####[address] [address] Monocytes/100 WBC (Bld) 9.6 % Normal 2.0 - 10.0 [facility] Comment on above: Performed By: #### C BCDF ####[address] [address] Neutrophils (Bld) [#/Vol] 2.48 10*3/uL Normal 1.20 - 7.70 [facility] Comment on above: Result Comment: Perc ent differential counts (%) should be interpreted in the context of the absolute cell counts (cells/L). Performed By: #### C BCDF ####[address] [address] Neutrophils/100 WBC (Bld) 54.3 % Normal 40.0 - 80.0 [facility] Comment on above: Performed By: #### C BCDF ####[address] [address] Platelets (Bld) [#/Vol] 115 10*3/uL Low 150 - 450 [facility] Comment on above: Performed By: #### C BCDF ####[address] [address] RBC 4.22 x10E12/L Normal 4.00 - 5.20 [facility] Comment on above: Performed By: #### C BCDF ####[address] [address] WBC (Bld) [#/Vol] 4.6 10*3/uL Normal 4.4 - 11.[address] [facility] Comment on above: Performed By: #### C BCDF ####[place] [id number] COMPREHENSIVE PANELon 2022 Albumin [Mass/Vol] 3.8 g/dL Normal 3.4 - 5.[address] [facility] Comment on above: Performed By: #### C MP ####[address] [address] ALP [Catalytic activity/Vol] 69 U/L Normal 33 - 110 [facility] Comment on above: Performed By: #### C MP ####[address] [address] ALT [Catalytic activity/Vol] 13 U/L Normal 7 - 45 [facility] Comment on above: Result Comment: Marjan ents treated with Sulfasalazine may generate falsely decreased results for ALT. Performed By: #### C MP ####[address] [address] Anion gap [Moles/Vol] 13 mmol/L Normal 10 - 20 [facility] Comment on above: Performed By: #### C MP ####[address] [address] AST [Catalytic activity/Vol] 21 U/L Normal 9 - 39 [facility] Comment on above: Performed By: #### C MP ####[address] [address] Bilirubin [Mass/Vol] 0.4 mg/dL Normal 0.0 - 1.2 [facility] Comment on above: Performed By: #### C MP ####[address] [address] Calcium [Mass/Vol] 9.6 mg/dL Normal 8.6 - 10.[address] [facility] Comment on above: Performed By: #### C MP ####[address] [address] Chloride [Moles/Vol] 101 mmol/L Normal 98 - 107 [facility] Comment on above: Performed By: #### C MP ####[address] [address] Creatinine [Mass/Vol] 1.32 mg/dL High 0.50 - 1.05 [facility] Comment on above: Performed By: #### C MP ####[address] [address] GFR/1.73 sq M.predicted among non-blacks MDRD (S/P/Bld) [Vol rate/Area] 49 mL/min/{1.73_m2} Abnormal >90 [facility] Comment on above: Result Comment: CALC ULATIONS OF ESTIMATED GFR ARE PERFORMED USING THE 2020 CKD-EPI STUDY REFIT EQUATION WITHOUT THE RACE VARIABLE FOR THE IDMS-TRACEABLE CREATININE METHODS.https://jasn.asnjournals.org/content/early/ N.7971348753 Performed By: #### C MP ####[address] [address] Glucose [Mass/Vol] 93 mg/dL Normal 74 - [address] [facility] Comment on above: Performed By: #### C MP ####[address] [address] HCO3 (Bld) [Moles/Vol] 24 mmol/L Normal 21 - 32 [facility] Comment on above: Performed By: #### C MP ####[address] [address] Potassium [Moles/Vol] 4.1 mmol/L Normal 3.5 - 5.3 [facility] Comment on above: Performed By: #### C MP ####[address] [address] Protein [Mass/Vol] 6.1 g/dL Low 6.4 - 8.[address] [facility] Comment on above: Performed By: #### C MP ####[address] [address] Sodium [Moles/Vol] 134 mmol/L Low 136 - [address] [facility] Comment on above: Performed By: #### C MP ####[address] [address] Urea nitrogen [Mass/Vol] 24 mg/dL High 6 - 23 [facility] Comment on above: Performed By: #### C MP ####[address] [address] [address] C Spine without Contrasto n 01-21-2023 CT Cervical spine WO contrast Normal [facility] Work Phone: CT C-SPINE WO CONTRASTon CT C-SPINE WO CONTRAST Normal [facility] CT HEAD WO CONTRASTon 2022 CT HEAD WO CONTRAST Normal [facility] CT Head without Contraston 0 01-21-2023 CT Head limited WO contrast Normal [facility] Work Phone: CT L Spine without Contrasto n 01-21-2023 CT Lumbar spine limited WO contrast Normal [facility] Work Phone: CT L-SPINE WO CONTRASTon CT L-SPINE WO CONTRAST Normal [facility] Complete Blood Count + Diffe rentialon 01-21-2023 Basophils/100 WBC (Bld) 0.4 % 0.0 - 2.0 [facility] Work Phone: Erythrocyte distribution width (RBC) [Ratio] 12.5 % See Below [facility] Work Phone: Comment on above: Reference Range: 11. 5 - 14.5 Hematocrit (Bld) [Volume fraction] 38.1 % See Below [facility] Work Phone: Comment on above: Reference Range: 36. 0 - 46.0 Hemoglobin (Bld) [Mass/Vol] 12.6 g/dL See Below [facility] Work Phone: Comment on above: Reference Range: 12. 0 - 16.0 Lymphocytes/100 WBC (Bld) 31.1 % See Below [facility] Work Phone: Comment on above: Reference Range: 13. 0 - 44.0 MCHC (RBC) [Mass/Vol] 33.1 g/dL See Below [facility] Work Phone: Comment on above: Reference Range: 32. 0 - 36.0 MCV (RBC) [Entitic vol] 90 fL 80 - 100 [facility] Work Phone: Monocytes/100 WBC (Bld) 9.6 % 2.0 - 10.0 [facility] Work Phone: Neutrophils/100 WBC (Bld) 54.3 % See Below [facility] Work Phone: Comment on above: Reference Range: 40. 0 - 80.0 Platelets (Bld) [#/Vol] 115 10*3/uL below low threshold 150 - 450 [facility] Work Phone: RBC (Bld) [#/Vol] 4.22 {x10E12/L} See Below [facility] Work Phone: Comment on above: Reference Range: 4.0 0 - 5.20 WBC (Bld) [#/Vol] 4.6 10*3/uL 4.4 - 11.3 [facility] Work Phone: Complete Blood Count + Differential 0.02 {x10E9/L} See Below [facility] Work Phone: Comment on above: Reference Range: 0.0 0 - 0.10 Complete Blood Count + Differential 0.07 {x10E9/L} See Below [facility] Work Phone: Comment on above: Reference Range: 0.0 0 - 0.70 Complete Blood Count + Differential 0.44 {x10E9/L} See Below [facility] Work Phone: Comment on above: Reference Range: 0.1 0 - 1.00 Complete Blood Count + Differential 1.42 {x10E9/L} See Below [facility] Work Phone: Comment on above: Reference Range: 1.2 0 - 4.80 Complete Blood Count + Differential 2.48 {x10E9/L} See Below [facility] Work Phone: Comment on above: Reference Range: 1.2 0 - 7.70 Percent differential counts (%) should be interpreted in the context of the absolute cell counts (cells/L). Complete Blood Count + Differential 1.5 % 0.0 - 6.0 [facility] Work Phone: Complete Blood Count + Differential 3.1 % above high threshold 0.0 - 0.9 [facility] Work Phone: Comment on above: Immature Granulocyte Count (IG) includes promyelocytes, myelocytes and metamyelocytes but does not include bands. Percent differential counts (%) should be interpreted in the context of the absolute cell counts (cells/L). Laboratory - Chemistry and C hemistry - challengeon 01-21-2023 Albumin BCP dye [Mass/Vol] 3.8 g/dL 3.4 - 5.0 [facility] Work Phone: ALP [Catalytic activity/Vol] 69 U/L 33 - 110 [facility] Work Phone: ALT With P-5'-P [Catalytic activity/Vol] 13 U/L 7 - 45 [facility] Work Phone: Comment on above: Patients treated wit h Sulfasalazine may generate falsely decreased results for ALT. Anion gap [Moles/Vol] 13 mmol/L 10 - 20 [facility] Work Phone: AST With P-5'-P [Catalytic activity/Vol] 21 U/L 9 - 39 [facility] Work Phone: Bilirubin [Mass/Vol] 0.4 mg/dL 0.0 - 1.2 [facility] Work Phone: Calcium [Mass/Vol] 9.6 mg/dL 8.6 - 10.3 [facility] Work Phone: Chloride [Moles/Vol] 101 mmol/L 98 - 107 [facility] Work Phone: CO2 [Moles/Vol] 24 mmol/L 21 - 32 [facility] Work Phone: Creatinine [Mass/Vol] 1.32 mg/dL above high threshold See Below [facility] Work Phone: Comment on above: Reference Range: 0.5 0 - 1.05 Glucose [Mass/Vol] 93 mg/dL 74 - 99 [facility] Work Phone: Potassium [Moles/Vol] 4.1 mmol/L 3.5 - 5.3 [facility] Work Phone: Protein [Mass/Vol] 6.1 g/dL below low threshold 6.4 - 8.2 [facility] Work Phone: Sodium [Moles/Vol] 134 mmol/L below low threshold 136 - 145 [facility] Work Phone: Urea nitrogen [Mass/Vol] 24 mg/dL above high threshold 6 - 23 [facility] Work Phone: MAGNESIUMon 01-21-2023 Magnesium [Mass/Vol] 1.63 mg/dL Normal 1.60 - 2.40 [facility] Comment on above: Performed By: #### M G ####[place] [id number] Magnesium, Serumon 3 Magnesium [Mass/Vol] 1.63 mg/dL See Below [facility] Work Phone: Comment on above: Reference Range: 1.6 0 - 2.40 No Panel Informationon 01-21 49 {mL/min/1.73m2} Abnormal >90 [facility] Work Phone: Comment on above: CALCULATIONS OF FRIEDA MATED GFR ARE PERFORMED USING THE 2020 CKD-EPI STUDY REFIT EQUATION WITHOUT THE RACE VARIABLE FOR THE IDMS-TRACEABLE CREATININE METHODS.https://jasn.asnjournals.org/content// N.7609325433 Provider Note - ED v3on 04-0 Provider Note - ED v3 Normal [facility] Triage - EDon 01-21-2023 Triage - ED Normal [facility] URINALYSISon 01-21-2023 Appearance (U) Canceled [facility] Comment on above: Order Comment: TEST URINALYSIS WAS CANCELLED, 01/21/2023 20:42 PATIENT DISCHARGED. Performed By: #### U A ####[address] [address] ASCORBIC ACID Canceled [facility] Comment on above: Order Comment: TEST URINALYSIS WAS CANCELLED, 01/21/2023 20:42 PATIENT DISCHARGED. Result Comment: Conc entrations > = 20 mg/dL of ascorbic acid can be expected to cause stronginterference in the reactions testing for glucose, nitrite and blood. It isrecommended to discontinue Vitamin C administration and retest in 10 hours. Performed By: #### U A ####[address] [address] Bilirubin Ql (U) Canceled [facility] Comment on above: Order Comment: TEST URINALYSIS WAS CANCELLED, 01/21/2023 20:42 PATIENT DISCHARGED. Performed By: #### U A ####[address] [address] Color (U) Canceled [facility] Comment on above: Order Comment: TEST URINALYSIS WAS CANCELLED, 01/21/2023 20:42 PATIENT DISCHARGED. Performed By: #### U A ####[address] [address] Glucose Ql (U) Canceled [facility] Comment on above: Order Comment: TEST URINALYSIS WAS CANCELLED, 01/21/2023 20:42 PATIENT DISCHARGED. Performed By: #### U A ####[address] [address] Hemoglobin Ql (U) Canceled [facility] Comment on above: Order Comment: TEST URINALYSIS WAS CANCELLED, 01/21/2023 20:42 PATIENT DISCHARGED. Performed By: #### U A ####[address] [address] Ketones Ql (U) Canceled [facility] Comment on above: Order Comment: TEST URINALYSIS WAS CANCELLED, 01/21/2023 20:42 PATIENT DISCHARGED. Performed By: #### U A ####[place] [id number] Leukocyte esterase Test strip Ql (U) Canceled [facility] Comment on above: Order Comment: TEST URINALYSIS WAS CANCELLED, 01/21/2023 20:42 PATIENT DISCHARGED. Performed By: #### U A ####[address] [address] Nitrite Ql (U) Canceled [facility] Comment on above: Order Comment: TEST URINALYSIS WAS CANCELLED, 01/21/2023 20:42 PATIENT DISCHARGED. Performed By: #### U A ####[place] [id number] pH Canceled [facility] Comment on above: Order Comment: TEST URINALYSIS WAS CANCELLED, 01/21/2023 20:42 PATIENT DISCHARGED. Performed By: #### U A ####[address] [address] Protein Ql (U) Canceled [facility] Comment on above: Order Comment: TEST URINALYSIS WAS CANCELLED, 01/21/2023 20:42 PATIENT DISCHARGED. Performed By: #### U A ####[address] [address] Specific gravity (U) [Rel density] Canceled [facility] Comment on above: Order Comment: TEST URINALYSIS WAS CANCELLED, 01/21/2023 20:42 PATIENT DISCHARGED. Performed By: #### U A ####[address] [address] UROBILINOGEN Canceled [facility] Comment on above: Order Comment: TEST URINALYSIS WAS CANCELLED, 01/21/2023 20:42 PATIENT DISCHARGED. Performed By: #### U A ####[place] [address] [place] [id number] Established Visit (Orthopaed ic Surgery)on 01-19-2023 Established [...] knee x-ray complete, duplex ultrasound ordered. 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 This note was generated using GLO software. It may contain errors in wording, [...] states she is no longer being scheduled. [facility] arrange transportation. States PT recommended OT, not [...] 01-20-20 KNEE 1 OR 2 VIEWS Normal [facility] Radiologyon 01-19-2023 XR Knee 1 or 2 Views Normal MP-S [facility]oped[facility] and [facility] Work Phone: VASC LAB Venous Duplex Ultra sound DVTon 01-19-2023 VASC LAB Venous Duplex Ultrasound DVT Normal [facility] VAS LAB Venous Duplex Ultra sound for DVTon 01-19-2023 VASC LAB Venous Duplex Ultrasound for DVT [facility] [facility] Work Phone: PT Progress Noteon 3 [...] Post Discharge Result Follow Up: Atte Normal [facility] PT Progress Noteon 3 PT Progress Note No report was sent Normal [facility] Therapy Communicationon 12-17 Therapy Communication Message REEMA EDINGTON canceled today illness. Signatures Electronically signed by : Pippa Freeman PTA; Jan 08 2023 9:17AM EST (Author) Normal [facility] BASIC METABOLIC PANELon 12-17 Anion gap [Moles/Vol] 14 mmol/L Normal 10 - 20 [facility] Comment on above: Performed By: #### B MP ####[address] [address] Calcium [Mass/Vol] 9.0 mg/dL Normal 8.6 - 10.[address] [facility] Comment on above: Performed By: #### B MP ####[address] [address] Chloride [Moles/Vol] 100 mmol/L Normal 98 - 107 [facility] Comment on above: Performed By: #### B MP ####[address] [address] Creatinine [Mass/Vol] 1.38 mg/dL High 0.50 - 1.05 [facility] Comment on above: Performed By: #### B MP ####[address] [address] GFR/1.73 sq M.predicted among non-blacks MDRD (S/P/Bld) [Vol rate/Area] 47 mL/min/{1.73_m2} Abnormal >90 [facility] Comment on above: Result Comment: CALC ULATIONS OF ESTIMATED GFR ARE PERFORMED USING THE 2020 CKD-EPI STUDY REFIT EQUATION WITHOUT THE RACE VARIABLE FOR THE IDMS-TRACEABLE CREATININE METHODS.https://jasn.asnjournals.org/content/early/ N.3072512634 Performed By: #### B MP ####[address] [address] Glucose [Mass/Vol] 103 mg/dL High 74 - [address] [facility] Comment on above: Performed By: #### B MP ####[address] [address] HCO3 (Bld) [Moles/Vol] 26 mmol/L Normal 21 - 32 [facility] Comment on above: Performed By: #### B MP ####[address] [address] Potassium [Moles/Vol] 4.3 mmol/L Normal 3.5 - 5.3 [facility] Comment on above: Result Comment: MILD HEMOLYSIS DETECTED. The result may be falsely elevated due tohemolysis or other interferents. Clinical correlation is recommended.Repeat testing may be considered. Performed By: #### B MP ####[address] [address] Sodium [Moles/Vol] 136 mmol/L Normal 136 - [address] [facility] Comment on above: Performed By: #### B MP ####[address] [address] Urea nitrogen [Mass/Vol] 25 mg/dL High 6 - [facility] Comment on above: Performed By: #### B MP ####[address] [address] CBC AND DIFFERENTIALon 01-07 % AUTOMATED IMMATURE GRAN 0.6 % Normal 0.0 - 0.9 [facility] Comment on above: Result Comment: Suze ture Granulocyte Count (IG) includes promyelocytes, myelocytes and metamyelocytes but does not include bands. Percent differential counts (%) should be interpreted in the context of the absolute cell counts (cells/L). Performed By: #### C BCDF ####[place] [id number] Basophils (Bld) [#/Vol] 0.01 10*3/uL Normal 0.00 - 0.10 [facility] Comment on above: Performed By: #### C BCDF ####[place] [id number] Basophils/100 WBC (Bld) 0.1 % Normal 0.0 - 2.0 [facility] Comment on above: Performed By: #### C BCDF ####[place] [id number] Erythrocyte distribution width (RBC) [Ratio] 12.4 % Normal 11.5 - 14.5 [facility] Comment on above: Performed By: #### C BCDF ####[place] [id number] Hematocrit (Bld) [Volume fraction] 39.9 % Normal 36.0 - 46.0 [facility] Comment on above: Performed By: #### C BCDF ####[address] [address] Hemoglobin (Bld) [Mass/Vol] 13.5 g/dL Normal 12.0 - 16.0 [facility] Comment on above: Performed By: #### C BCDF ####[address] [address] Lymphocytes (Bld) [#/Vol] 0.85 10*3/uL Low 1.20 - 4.80 [facility] Comment on above: Performed By: #### C BCDF ####[address] [address] Lymphocytes/100 WBC (Bld) 11.7 % Normal 13.0 - 44.0 [facility] Comment on above: Performed By: #### C BCDF ####[address] [address] MCHC (RBC) [Mass/Vol] 33.8 g/dL Normal 32.0 - 36.0 [facility] Comment on above: Performed By: #### C BCDF ####[address] [address] MCV (RBC) [Entitic vol] 89 fL Normal 80 - 100 [facility] Comment on above: Performed By: #### C BCDF ####[address] [address] Monocytes (Bld) [#/Vol] 0.90 10*3/uL Normal 0.10 - 1.00 [facility] Comment on above: Performed By: #### C BCDF ####[address] [address] Monocytes/100 WBC (Bld) 12.4 % Normal 2.0 - 10.0 [facility] Comment on above: Performed By: #### C BCDF ####[address] [address] Neutrophils (Bld) [#/Vol] 5.44 10*3/uL Normal 1.20 - 7.70 [facility] Comment on above: Result Comment: Perc ent differential counts (%) should be interpreted in the context of the absolute cell counts (cells/L). Performed By: #### C BCDF ####[address] [address] Neutrophils/100 WBC (Bld) 75.2 % Normal 40.0 - 80.0 [facility] Comment on above: Performed By: #### C BCDF ####[address] [address] Platelets (Bld) [#/Vol] 114 10*3/uL Low 150 - 450 [facility] Comment on above: Performed By: #### C BCDF ####[address] [address] RBC 4.47 x10E12/L Normal 4.00 - 5.20 [facility] Comment on above: Performed By: #### C BCDF ####[address] [address] WBC (Bld) [#/Vol] 7.2 10*3/uL Normal 4.4 - 11.[address] [facility] Comment on above: Performed By: #### C BCDF ####[address] [address] % AUTOMATED IMMATURE GRAN 3.2 % High 0.0 - 0.9 [facility] Comment on above: Result Comment: Suze ture Granulocyte Count (IG) includes promyelocytes, myelocytes and metamyelocytes but does not include bands. Percent differential counts (%) should be interpreted in the context of the absolute cell counts (cells/L). Performed By: #### C BCDF ####[address] [address] Basophils (Bld) [#/Vol] 0.01 10*3/uL Normal 0.00 - 0.10 [facility] Comment on above: Performed By: #### C BCDF ####[address] [address] Basophils/100 WBC (Bld) 0.2 % Normal 0.0 - 2.0 [facility] Comment on above: Performed By: #### C BCDF ####[address] [address] Eosinophils (Bld) [#/Vol] 0.09 10*3/uL Normal 0.00 - 0.70 [facility] Comment on above: Performed By: #### C BCDF ####[address] [address] Eosinophils/100 WBC (Bld) 1.7 % Normal 0.0 - 6.0 [facility] Comment on above: Performed By: #### C BCDF ####[address] [address] Erythrocyte distribution width (RBC) [Ratio] 12.2 % Normal 11.5 - 14.5 [facility] Comment on above: Performed By: #### C BCDF ####[address] [address] Hematocrit (Bld) [Volume fraction] 40.5 % Normal 36.0 - 46.0 [facility] Comment on above: Performed By: #### C BCDF ####[address] [address] Hemoglobin (Bld) [Mass/Vol] 13.4 g/dL Normal 12.0 - 16.0 [facility] Comment on above: Performed By: #### C BCDF ####[address] [address] Lymphocytes (Bld) [#/Vol] 0.45 10*3/uL Low 1.20 - 4.80 [facility] Comment on above: Performed By: #### C BCDF ####[address] [address] Lymphocytes/100 WBC (Bld) 8.5 % Normal 13.0 - 44.0 [facility] Comment on above: Performed By: #### C BCDF ####[address] [address] MCHC (RBC) [Mass/Vol] 33.1 g/dL Normal 32.0 - 36.0 [facility] Comment on above: Performed By: #### C BCDF ####[address] [address] MCV (RBC) [Entitic vol] 90 fL Normal 80 - 100 [facility] Comment on above: Performed By: #### C BCDF ####[address] [address] Monocytes (Bld) [#/Vol] 0.37 10*3/uL Normal 0.10 - 1.00 [facility] Comment on above: Performed By: #### C BCDF ####[address] [address] Monocytes/100 WBC (Bld) 7.0 % Normal 2.0 - 10.0 [facility] Comment on above: Performed By: #### C BCDF ####[address] [address] Neutrophils (Bld) [#/Vol] 4.19 10*3/uL Normal 1.20 - 7.70 [facility] Comment on above: Result Comment: Perc ent differential counts (%) should be interpreted in the context of the absolute cell counts (cells/L). Performed By: #### C BCDF ####[address] [address] Neutrophils/100 WBC (Bld) 79.4 % Normal 40.0 - 80.0 [facility] Comment on above: Performed By: #### C BCDF ####[address] [address] Platelets (Bld) [#/Vol] 92 10*3/uL Low 150 - 450 [facility] Comment on above: Performed By: #### C BCDF ####[address] [address] RBC 4.48 x10E12/L Normal 4.00 - 5.20 [facility] Comment on above: Performed By: #### C BCDF ####[address] [address] WBC (Bld) [#/Vol] 5.3 10*3/uL Normal 4.4 - 11.[address] [facility] Comment on above: Performed By: #### C BCDF ####[address] [address] COMPREHENSIVE PANELon 2022 Albumin [Mass/Vol] 4.2 g/dL Normal 3.4 - 5.[address] [facility] Comment on above: Performed By: #### C MP ####[address] [address] ALP [Catalytic activity/Vol] 61 U/L Normal 33 - 110 [facility] Comment on above: Performed By: #### C MP ####[address] [address] ALT [Catalytic activity/Vol] 16 U/L Normal 7 - 45 [facility] Comment on above: Result Comment: Marjan ents treated with Sulfasalazine may generate falsely decreased results for ALT. Performed By: #### C MP ####[address] [address] Anion gap [Moles/Vol] 18 mmol/L Normal 10 - 20 [facility] Comment on above: Performed By: #### C MP ####[address] [address] AST [Catalytic activity/Vol] 25 U/L Normal 9 - 39 [facility] Comment on above: Performed By: #### C MP ####[address] [address] Bilirubin [Mass/Vol] 0.5 mg/dL Normal 0.0 - 1.2 [facility] Comment on above: Performed By: #### C MP ####[address] [address] Calcium [Mass/Vol] 8.7 mg/dL Normal 8.6 - 10.[address] [facility] Comment on above: Performed By: #### C MP ####[address] [address] Chloride [Moles/Vol] 98 mmol/L Normal 98 - 107 [facility] Comment on above: Performed By: #### C MP ####[address] [address] Creatinine [Mass/Vol] 1.37 mg/dL High 0.50 - 1.05 [facility] Comment on above: Performed By: #### C MP ####[address] [address] GFR/1.73 sq M.predicted among non-blacks MDRD (S/P/Bld) [Vol rate/Area] 47 mL/min/{1.73_m2} Abnormal >90 [facility] Comment on above: Result Comment: CALC ULATIONS OF ESTIMATED GFR ARE PERFORMED USING THE 2020 CKD-EPI STUDY REFIT EQUATION WITHOUT THE RACE VARIABLE FOR THE IDMS-TRACEABLE CREATININE METHODS.https://jasn.asnjournals.org/content// N.4467785168 Performed By: #### C MP ####[address] [address] Glucose [Mass/Vol] 100 mg/dL High 74 - [address] [facility] Comment on above: Performed By: #### C MP ####[address] [address] HCO3 (Bld) [Moles/Vol] 23 mmol/L Normal 21 - 32 [facility] Comment on above: Performed By: #### C MP ####[address] [address] Potassium [Moles/Vol] 3.7 mmol/L Normal 3.5 - 5.3 [facility] Comment on above: Performed By: #### C MP ####[address] [address] Protein [Mass/Vol] 6.9 g/dL Normal 6.4 - 8.[address] [facility] Comment on above: Performed By: #### C MP ####[address] [address] Sodium [Moles/Vol] 135 mmol/L Low 136 - [address] [facility] Comment on above: Performed By: #### C MP ####[address] [address] Urea nitrogen [Mass/Vol] 21 mg/dL Normal 6 - 23 [facility] Comment on above: Performed By: #### C MP ####[address] [address] CORONAVIRUS 2019 BY PCRon SARS-CoV-2 (COVID-19) RNA CHIARA+probe Ql (Unsp spec) Detected Abnormal Not Detected [facility] Comment on above: Result Comment: .Thi s test has received FDA Emergency Use Authorization (EUA) and has beenverified by [facility]. This test is onlyauthorized for the duration of time that circumstances exist to justify theauthorization of the emergency use of in vitro diagnostic tests for thedetection of SARS-CoV-2 virus and/or diagnosis of COVID-19 infection undersection 564(b)(1) of the Act, 21 U.S.C. 360bbb-3(b)(1), unless theauthorization is terminated or revoked sooner.[facility] is certified under CLIA-88 asqualified to perform high complexity testing. Testing is performed in [facility] laboratory located at [address] [place] [address].SARS-CoV-2/Flu/RSV Multiplex Test:Fact sheet for providers: https://www.fda.gov/media/335083/downloadFact sheet for patients: https://www.fda.gov/media/381325/download Performed By: #### C OV19 ####[place] [address] Lab Specimen Source Nasal, Nasopharyngeal Normal [facility] Comment on above: Performed By: #### C OV19 ####[place] [address] Complete Blood Count + Diffe laureen 01-07-2023 Basophils/100 WBC (Bld) 0.1 % 0.0 - 2.0 [facility] [place] Work Phone: Erythrocyte distribution width (RBC) [Ratio] 12.4 % See Below [facility] [place] Work Phone: Comment on above: Reference Range: 11. 5 - 14.5 Hematocrit (Bld) [Volume fraction] 39.9 % [facility] [place] Work Phone: Comment on above: Reference Range: 36. 0 - 46.0 Hemoglobin (Bld) [Mass/Vol] 13.5 g/dL See Below [facility] [place] Work Phone: Comment on above: Reference Range: 12. 0 - 16.0 Lymphocytes/100 WBC (Bld) 11.7 % See Below [facility] Work Phone: Comment on above: Reference Range: 13. 0 - 44.0 MCHC (RBC) [Mass/Vol] 33.8 g/dL See Below [facility] Work Phone: Comment on above: Reference Range: 32. 0 - 36.0 MCV (RBC) [Entitic vol] 89 fL 80 - 100 [facility] Work Phone: Monocytes/100 WBC (Bld) 12.4 % 2.0 - 10.0 [facility] Work Phone: Neutrophils/100 WBC (Bld) 75.2 % See Below [facility] Work Phone: Comment on above: Reference Range: 40. 0 - 80.0 Platelets (Bld) [#/Vol] 114 10*3/uL below low threshold 150 - 450 [facility] Work Phone: RBC (Bld) [#/Vol] 4.47 {x10E12/L} See Below [facility] Work Phone: Comment on above: Reference Range: 4.0 0 - 5.20 WBC (Bld) [#/Vol] 7.2 10*3/uL 4.4 - 11.3 [facility] Work Phone: Complete Blood Count + Differential 0.01 {x10E9/L} See Below [facility] [facility] Work Phone: Comment on above: Reference Range: 0.0 0 - 0.10 Complete Blood Count + Differential 0.90 {x10E9/L} See Below [facility] Work Phone: Comment on above: Reference Range: 0.1 0 - 1.00 Complete Blood Count + Differential 0.85 {x10E9/L} below low threshold See Below [facility] [place] Work Phone: Comment on above: Reference Range: 1.2 0 - 4.80 Complete Blood Count + Differential 5.44 {x10E9/L} [facility] Below [facility] [place] Work Phone: Comment on above: Reference Range: 1.2 0 - 7.70 Percent differential counts (%) should be interpreted in the context of the absolute cell counts (cells/L). Complete Blood Count + Differential 0.6 % 0.0 - 0.9 [facility] [place] Work Phone: Comment on above: Immature Granulocyte Count (IG) includes promyelocytes, myelocytes and metamyelocytes but does not include bands. Percent differential counts (%) should be interpreted in the context of the absolute cell counts (cells/L). Basophils/100 WBC (Bld) 0.2 % 0.0 - 2.0 [facility] [place] Work Phone: Erythrocyte distribution width (RBC) [Ratio] 12.2 % See Below [facility] [place] Work Phone: Comment on above: Reference Range: 11. 5 - 14.5 Hematocrit (Bld) [Volume fraction] 40.5 % See Below [facility] [place] Work Phone: Comment on above: Reference Range: 36. 0 - 46.0 Hemoglobin (Bld) [Mass/Vol] 13.4 g/dL See Below [facility] [place] Work Phone: Comment on above: Reference Range: 12. 0 - 16.0 Lymphocytes/100 WBC (Bld) 8.5 % See Below [facility] Work Phone: Comment on above: Reference Range: 13. 0 - 44.0 MCHC (RBC) [Mass/Vol] 33.1 g/dL See Below [facility] Work Phone: Comment on above: Reference Range: 32. 0 - 36.0 MCV (RBC) [Entitic vol] 90 fL 80 - 100 [facility] Work Phone: Monocytes/100 WBC (Bld) 7.0 % 2.0 - 10.0 [facility] Work Phone: Neutrophils/100 WBC (Bld) 79.4 % See Below [facility] [facility] Work Phone: Comment on above: Reference Range: 40. 0 - 80.0 Platelets (Bld) [#/Vol] 92 10*3/uL below low threshold 150 - 450 [facility] [facility] Work Phone: RBC (Bld) [#/Vol] 4.48 {x10E12/L} See Below [facility] Work Phone: Comment on above: Reference Range: 4.0 0 - 5.20 WBC (Bld) [#/Vol] 5.3 10*3/uL 4.4 - 11.3 [facility] [facility] Work Phone: Complete Blood Count + Differential 0.01 {x10E9/L} See Below [facility] [facility] Work Phone: Comment on above: Reference Range: 0.0 0 - 0.10 Complete Blood Count + Differential 0.09 {x10E9/L} See Below [facility] Work Phone: Comment on above: Reference Range: 0.0 0 - 0.70 Complete Blood Count + Differential 0.37 {x10E9/L} See Below [facility] Work Phone: Comment on above: Reference Range: 0.1 0 - 1.00 Complete Blood Count + Differential 0.45 {x10E9/L} below low threshold See Below [facility] Work Phone: Comment on above: Reference Range: 1.2 0 - 4.80 Complete Blood Count + Differential 4.19 {x10E9/L} See Below [facility] Work Phone: Comment on above: Reference Range: 1.2 0 - 7.70 Percent differential counts (%) should be interpreted in the context of the absolute cell counts (cells/L). Complete Blood Count + Differential 1.7 % 0.0 - 6.0 [facility] Work Phone: Complete Blood Count + Differential 3.2 % above high threshold 0.0 - 0.9 [facility] Work Phone: Comment on above: Immature Granulocyte Count (IG) includes promyelocytes, myelocytes and metamyelocytes but does not include bands. Percent differential counts (%) should be interpreted in the context of the absolute cell counts (cells/L). Coronavirus 2019 RNA by PCR, Symptomaticon 01-07-2023 Coronavirus 2019 RNA by PCR, Symptomatic Detected Abnormal See Below [facility] Work Phone: Comment on above: SOURCE: Nasal, Nasop haryngealReference Range: Not Detected.This test has received FDA Emergency Use Authorization (EUA) and has been verified by [facility]. This test is only authorized for the duration of time that circumstances exist to justify the authorization of the emergency use of in vitro diagnostic tests for the detection of SARS-CoV-2 virus and/or diagnosis of COVID-19 infection under section 564(b)(1) of the Act, 21 U.S.C. 360bbb-3(b)(1), unless the authorization is terminated or revoked sooner. [facility] is certified under CLIA-88 as qualified to perform high complexity testing. Testing is performed in the [facility] laboratory located at [address] [place] [address].SARS-CoV-2/Flu/RSV Multiplex Test: Fact sheet for providers: https://www.fda.gov/media/811747/downloadFact sheet for patients: https://www.fda.gov/media/048813/download Covid 19 Resultson 3 SARS-CoV-2 (COVID-19) RNA CHIARA+probe Ql (Unsp spec) Normal [facility] HCG,URINEon 01-07-2023 Beta HCG ( test) Ql (U) Negative Normal Negative [facility] Comment on above: Performed By: #### H CGU ####[place] [address] HEPATIC FUNCTION PANELon Albumin [Mass/Vol] 4.2 g/dL Normal 3.4 - 5.[address] [facility] Comment on above: Performed By: #### H EPFP ####[place] [address] ALP [Catalytic activity/Vol] 74 U/L Normal 33 - 110 [facility] Comment on above: Performed By: #### H EPFP ####[address] [address] ALT [Catalytic activity/Vol] 14 U/L Normal 7 - 45 [facility] Comment on above: Result Comment: Marjan ents treated with Sulfasalazine may generate falsely decreased results for ALT. Performed By: #### H EPFP ####[address] [address] AST [Catalytic activity/Vol] 20 U/L Normal 9 - 39 [facility] Comment on above: Result Comment: MILD HEMOLYSIS DETECTED. The result may be falsely elevated due tohemolysis or other interferents. Clinical correlation is recommended.Repeat testing may be considered. Performed By: #### H EPFP ####[address] [address] Bilirubin [Mass/Vol] 0.3 mg/dL Normal 0.0 - 1.2 [facility] Comment on above: Performed By: #### H EPFP ####[address] [address] Bilirubin.indirect [Mass/Vol] 0.1 mg/dL Normal 0.0 - 0.3 [facility] Comment on above: Result Comment: MILD HEMOLYSIS DETECTED. The result may be falsely decreased due tohemolysis or other interferents. Clinical correlation is recommended.Repeat testing may be considered. Performed By: #### H EPFP ####[place] [place] [address] Protein [Mass/Vol] 7.0 g/dL Normal 6.4 - 8.[address] [facility] Comment on above: Performed By: #### H EPFP ####[place] [place] [address] Hepatic Function Panelon Albumin BCP dye [Mass/Vol] 4.2 g/dL 3.4 - 5.0 [facility] [employer] Work Phone: ALP [Catalytic activity/Vol] 74 U/L 33 - 110 [facility] [employer] Work Phone: ALT With P-5'-P [Catalytic activity/Vol] 14 U/L 7 - [address] [facility] [employer] Work Phone: Comment on above: Patients treated wit Sulfasalazine may generate falsely decreased results for ALT. AST With P-5'-P [Catalytic activity/Vol] 20 U/L 9 - 39 [facility] [employer] Work Phone: Comment on above: MILD HEMOLYSIS DETEC KANDACE. The result may be falsely elevated due tohemolysis or other interferents. Clinical correlation is recommended.Repeat testing may be considered. Bilirubin [Mass/Vol] 0.3 mg/dL 0.0 - 1.2 [facility] [employer] Work Phone: Bilirubin.direct [Mass/Vol] 0.1 mg/dL 0.0 - 0.[address] [facility] [employer] Work Phone: Comment on above: MILD HEMOLYSIS DETEC KANDACE. The result may be falsely decreased due tohemolysis or other interferents. Clinical correlation is recommended.Repeat testing may be considered. Protein [Mass/Vol] 7.0 g/dL 6.4 - 8.2 [facility] [place] Work Phone: LIPASEon 01-07-2023 Lipase [Catalytic activity/Vol] 64 U/L Normal 9 - 82 [facility] Comment on above: Result Comment: Nathalie puncture immediately after or during the administration of Metamizole may lead to falsely low results. Testing should be performed immediately prior to Metamizole dosing. O-ohcpgw-s-benzoquinone imine (metabolite of Acetaminophen) will generate erroneously low results in samples for patients that have taken toxic doses of acetaminophen. Performed By: #### L IPAS ####[address] [place] [address] Laboratory - Chemistry and C hemistry - challengeon 01-07-2023 Albumin BCP dye [Mass/Vol] 4.2 g/dL 3.4 - 5.0 [facility] [place] Work Phone: ALP [Catalytic activity/Vol] 61 U/L 33 - 110 [facility] [place] Work Phone: ALT With P-5'-P [Catalytic activity/Vol] 16 U/L 7 - 45 [facility] [place] Work Phone: Comment on above: Patients treated wit h Sulfasalazine may generate falsely decreased results for ALT. Anion gap [Moles/Vol] 18 mmol/L 10 - 20 [facility] [place] Work Phone: AST With P-5'-P [Catalytic activity/Vol] 25 U/L 9 - 39 [facility] [facility] Hospit[facility] [place] Work Phone: Bilirubin [Mass/Vol] 0.5 mg/dL 0.0 - 1.2 [facility] [place] Work Phone: Calcium [Mass/Vol] 8.7 mg/dL 8.6 - 10.3 [facility] Work Phone: Chloride [...] 6 - 23 [facility] [place] Work Phone: Anion gap [Moles/Vol] 14 mmol/L 10 - 20 [facility] [place] Work Phone: Calcium [Mass/Vol] 9.0 mg/dL 8.6 - 10.3 [facility] Work Phone: Chloride [Moles/Vol] 100 mmol/L 98 - 107 R [facility] Work Phone: CO2 [Moles/Vol] 26 mmol/L 21 - 32 [facility] [place] Work Phone: Creatinine [Mass/Vol] 1.38 mg/dL above high threshold See Below [facility] [place] Work Phone: Comment on above: Reference Range: 0.5 0 - 1.05 Glucose [Mass/Vol] 103 mg/dL above high threshold 74 - [address] [facility] [address] [facility] [place] Work Phone: Potassium [Moles/Vol] 4.3 mmol/L 3.5 - 5.3 [facility] Work Phone: Comment on above: MILD HEMOLYSIS DETEC KANDACE. The result may be falsely elevated due tohemolysis or other interferents. Clinical correlation is recommended.Repeat testing may be considered. Sodium [Moles/Vol] 136 mmol/L 136 - 145 [facility] [place] Work Phone: Urea nitrogen [Mass/Vol] 25 mg/dL above high threshold 6 - [address] [facility] [address] [facility] [place] Work Phone: Lipase, Serumon 01-07-2023 Lipase [Catalytic activity/Vol] 64 U/L 9 - 82 [facility] Work Phone: Comment on above: Venipuncture immedia tely after or during the administration of Metamizole may lead to falsely low results. Testing should be performed immediately prior to Metamizole dosing. S-zierdf-r-benzoquinone imine (metabolite of Acetaminophen) will generate erroneously low results in samples for patients that have taken toxic doses of acetaminophen. No Panel Informationon 01-07 47 {mL/min/1.73m2} Abnormal >90 [facility] Work Phone: Comment on above: CALCULATIONS OF FRIEDA MATED GFR ARE PERFORMED USING THE 2020 CKD-EPI STUDY REFIT EQUATION WITHOUT THE RACE VARIABLE FOR THE IDMS-TRACEABLE CREATININE METHODS.https://jasn.asnjournals.org/content/early/ N.7009805058 47 {mL/min/1.73m2} Abnormal >90 [facility] Work Phone: Comment on above: CALCULATIONS OF FRIEDA MATED GFR ARE PERFORMED USING THE 2020 CKD-EPI STUDY REFIT EQUATION WITHOUT THE RACE VARIABLE FOR THE IDMS-TRACEABLE CREATININE METHODS.https://jasn.asnjournals.org/content/early/ N.9149369472 Provider Note - ED v3on 12-17 Provider Note - ED v3 Normal [facility] Provider Note - ED v3 Normal [facility] Risk Screen - Adult Emergenc yon 01-07-2023 Risk Screen - Adult Emergency Normal [facility] Risk Screen - Adult Emergency Normal [facility] Triage - EDon 01-07-2023 Triage - ED Normal [facility] Triage - ED Normal [facility] UA MICROSCOPICon 01-07-2023 AMORPHOUS CRYSTAL 1+ /HPF Normal [facility] Comment on above: Performed By: #### U AMIC ####[place] [address] BACTERIA 4+ /HPF Abnormal [facility] Comment on above: Performed By: #### U AMIC ####[place] [address] Mucus Ql (Urine sed) 1+ /LPF Normal [facility] Comment on above: Performed By: #### U AMIC ####[place] [address] RBC 24 /HPF Abnormal 0-5 [facility] Comment on above: Performed By: #### U AMIC ####[place] [address] SQUAMOUS EPITH. CELLS 2 /HPF Normal [facility] Comment on above: Performed By: #### U AMIC ####[place] [address] TRANSITIONAL EPITH.CELLS 1 /HPF Normal [facility] Comment on above: Performed By: #### U AMIC ####[place] [address] WBC 18 /HPF Abnormal 0-5 [facility] Comment on above: Performed By: #### U AMIC ####[address] [address] URINALYSISon 01-07-2023 Appearance (U) HAZY Normal CLEAR [facility] Comment on above: Performed By: #### U A ####[place] [address] Bilirubin Ql (U) Negative Normal NEGATIVE [facility] Comment on above: Performed By: #### U A ####[place] [address] Color (U) Yellow Normal STRAW,YELLOW [facility] Comment on above: Performed By: #### U A ####[place] [address] Glucose Ql (U) Negative Normal NEGATIVE [facility] Comment on above: Performed By: #### U A ####[place] [address] Hemoglobin Ql (U) MODERATE(2+) Abnormal NEGATIVE [facility] Comment on above: Performed By: #### U A ####[place] [address] Ketones Ql (U) Negative Normal NEGATIVE [facility] Comment on above: Performed By: #### U A ####[place] [address] Leukocyte esterase Test strip Ql (U) MODERATE(2+) Abnormal NEGATIVE [facility] Comment on above: Performed By: #### U A ####[place] [address] Nitrite Ql (U) Negative Normal NEGATIVE [facility] Comment on above: Performed By: #### U A ####[place] [address] pH (U) 7.0 [pH] Normal 5.0 - 8.0 [facility] Comment on above: Performed By: #### U A ####[place] [address] Protein Ql (U) 100(2+) Abnormal NEGATIVE [facility] Comment on above: Performed By: #### U A ####[address] [address] Specific gravity (U) [Rel density] 1.016 Normal 1.005 - 1.035 [facility] Comment on above: Performed By: #### U A ####[address] [address] Urobilinogen (U) [Mass/Vol] mg/dL Normal 0.0 - 1.9 [facility] Comment on above: Performed By: #### U A ####[address] [address] Urinalysison 01-07-2023 Color (U) Yellow See Below [facility] bean [employer] Work Phone: Comment on above: Reference Range: STR AW,YELLOW Glucose Ql (U) Negative NEGATIVE [facility] [employer] Work Phone: Ketones Ql (U) Negative NEGATIVE [facility] [employer] Work Phone: Leukocyte esterase Test strip Ql (U) MODERATE(2+) Abnormal NEGATIVE [facility] [employer] Work Phone: pH (U) 7.0 [pH] 5.0 - 8.0 [facility] [employer] Work Phone: Protein (U) [Mass/Vol] 100(2+) Abnormal NEGATIVE [facility] [employer] Work Phone: RBC (U) [#/Vol] MODERATE(2+) Abnormal NEGATIVE [facility] bean [employer] Work Phone: Specific gravity (U) [Rel density] 1.016 1 See Below [facility] bean [employer] Work Phone: Comment on above: Reference Range: 1.0 05 - 1.035 Urinalysis Negative NEGATIVE [facility] bean [employer] Work Phone: Urinalysis <2.0 0.0 - 1.9 [...] HCG ( test) Ql (U) Negative Negative [facility] Work Phone: PT Progress [...] code time is 39 minutes. Aquatic Therapy (94864): timed minutes 39, units 3 . Patient [...] Signatures Electronically signed by : Pippa Freeman DRAMATIC TEACHER; Jan 04 2023 6:08PM EST (Author) Electronically signed by : Trice Tejada PT; Jan 07 2023 6:28PM EST Normal [employer] [facility] Provider Note - ED v3on - Provider Note - ED v3 Normal [facility] Risk Screen - Adult Emergenc yon 01-01-2023 Risk Screen - Adult Emergency Normal [facility] Triage - EDon 01-01-2023 Triage - ED Normal [facility] PT Progress Noteon 3 PT Progress [...] code time is 39 minutes. Aquatic Therapy (64205): timed minutes 39, units 3 . Patient [...] Signatures Electronically signed by : Pippa Freeman DRAMATIC TEACHER; Dec 30 2022 10:11AM EST (Author) Electronically [...] code time is 39 minutes. Aquatic Therapy (22164): timed minutes 39, units 3 . Patient [...] Dec 29 2022 10:55AM EST (Author) Normal u.sit PT Progress Noteon PT Progress Note No report was sent Normal [employer] [facility] Therapy Communicationon 12-16 Therapy Communication Message REEMA SHAH no showed today no show. Signatures Electronically signed by : Pippa Freeman PTA; Dec 25 2022 10:13AM EST (Author) Normal u.sit Established Visit (Orthopaed ic Surgery)on 12-23-2022 Established [...] of care. This note was generated using GLO software. It may contain errors in wording, [...] link to view the study images Normal [facility] 300 Work Phone: [facility] Work Phone: Office Visit (Cardiology)on 12-23-2022 [...] discontinued her HCTZ, and ordered for the [facility] to begin checking daily BPs. Today, she [...] 12-23-2022 SPINE, LUMBOSACRAL MIN 4 VIEWS Normal [facility] Tobacco Screening.on 023 Fall risk assessment b) One or more fall s in the last year [facility] 300 Work Phone: Tobacco use status [facility] b) No [facility] 300 Work Phone: Tobacco use status [facility] b) No [facility] 300 Work Phone: [...] you for this referral and please call [phone] with any questions or concerns. Clinical Presentation: Stable and/or uncomplicated characteristics. Level of Complexity: low Problem List: activity limitations, ADLs/IADLs/self care skills, decreased knowledge of HEP, flexibility, gait/locomotion, pain, participation restrictions, range of motion/joint mobility and strength. Reason For Visit Initial Evaluation . Falls/ gait and mobility; knee pain. 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 Little interest or pleasure [...] No falls within the last year [facility] Work Phone: Tobacco use status [facility] b) No [facility] Work Phone: ALCOHOLon 12-07-2022 Ethanol [Mass/Vol] mg/dL Normal [facility] Comment on above: Result Comment: FOR MEDICAL USE ONLY..REF VALUES <10 Performed By: #### A LC ####[address] [address] Alcohol, Serumon 12-07-2022 Ethanol [Mass/Vol] mg/dL [facility] Work Phone: Comment on above: FOR MEDICAL USE ONLY . .REF VALUES <10 BASIC METABOLIC PANELon 11-19 Anion gap [Moles/Vol] 11 mmol/L Normal 10 - 20 [facility] Comment on above: Performed By: #### B MP ####[address] [address] Calcium [Mass/Vol] 8.3 mg/dL Low 8.6 - 10.[address] [facility] Comment on above: Performed By: #### B MP ####[address] [address] Chloride [Moles/Vol] 104 mmol/L Normal 98 - 107 [facility] Comment on above: Performed By: #### B MP ####[address] [address] Creatinine [Mass/Vol] 1.43 mg/dL High 0.50 - 1.05 [facility] Comment on above: Performed By: #### B MP ####[address] [address] GFR/1.73 sq M.predicted among non-blacks MDRD (S/P/Bld) [Vol rate/Area] 45 mL/min/{1.73_m2} Abnormal >90 [facility] Comment on above: Result Comment: CALC ULATIONS OF ESTIMATED GFR ARE PERFORMED USING THE 2020 CKD-EPI STUDY REFIT EQUATION WITHOUT THE RACE VARIABLE FOR THE IDMS-TRACEABLE CREATININE METHODS.https://jasn.asnjournals.org/content/early/ N.3019088752 Performed By: #### B MP ####[address] [address] Glucose [Mass/Vol] 87 mg/dL Normal 74 - [address] [facility] Comment on above: Performed By: #### B MP ####[address] [address] HCO3 (Bld) [Moles/Vol] 27 mmol/L Normal 21 - 32 [facility] Comment on above: Performed By: #### B MP ####[address] [address] Potassium [Moles/Vol] 4.5 mmol/L Normal 3.5 - 5.3 [facility] Comment on above: Performed By: #### B MP ####[address] [address] Sodium [Moles/Vol] 137 mmol/L Normal 136 - [address] [facility] Comment on above: Performed By: #### B MP ####[address] [address] Urea nitrogen [Mass/Vol] 23 mg/dL Normal 6 - 23 [facility] Comment on above: Performed By: #### B MP ####[address] [address] CBC AND DIFFERENTIALon 12-07 % AUTOMATED IMMATURE GRAN 0.6 % Normal 0.0 - 0.9 [facility] Comment on above: Result Comment: Suze ture Granulocyte Count (IG) includes promyelocytes, myelocytes and metamyelocytes but does not include bands. Percent differential counts (%) should be interpreted in the context of the absolute cell counts (cells/L). Performed By: #### C BCDF ####[place] [id number] Basophils (Bld) [#/Vol] 0.02 10*3/uL Normal 0.00 - 0.10 [facility] Comment on above: Performed By: #### C BCDF ####[place] [id number] Basophils/100 WBC (Bld) 0.4 % Normal 0.0 - 2.0 [facility] Comment on above: Performed By: #### C BCDF ####[place] [id number] Eosinophils (Bld) [#/Vol] 0.11 10*3/uL Normal 0.00 - 0.70 [facility] Comment on above: Performed By: #### C BCDF ####[address] [address] Eosinophils/100 WBC (Bld) 2.1 % Normal 0.0 - 6.0 [facility] Comment on above: Performed By: #### C BCDF ####[address] [address] Erythrocyte distribution width (RBC) [Ratio] 12.5 % Normal 11.5 - 14.5 [facility] Comment on above: Performed By: #### C BCDF ####[address] [address] Hematocrit (Bld) [Volume fraction] 39.1 % Normal 36.0 - 46.0 [facility] Comment on above: Performed By: #### C BCDF ####[address] [address] Hemoglobin (Bld) [Mass/Vol] 13.0 g/dL Normal 12.0 - 16.0 [facility] Comment on above: Performed By: #### C BCDF ####[address] [address] Lymphocytes (Bld) [#/Vol] 1.27 10*3/uL Normal 1.20 - 4.80 [facility] Comment on above: Performed By: #### C BCDF ####[address] [address] Lymphocytes/100 WBC (Bld) 24.5 % Normal 13.0 - 44.0 [facility] Comment on above: Performed By: #### C BCDF ####[address] [address] MCHC (RBC) [Mass/Vol] 33.2 g/dL Normal 32.0 - 36.0 [facility] Comment on above: Performed By: #### C BCDF ####[address] [address] MCV (RBC) [Entitic vol] 91 fL Normal 80 - 100 [facility] Comment on above: Performed By: #### C BCDF ####[address] [address] Monocytes (Bld) [#/Vol] 0.45 10*3/uL Normal 0.10 - 1.00 [facility] Comment on above: Performed By: #### C BCDF ####[address] [address] Monocytes/100 WBC (Bld) 8.7 % Normal 2.0 - 10.0 [facility] Comment on above: Performed By: #### C BCDF ####[address] [address] Neutrophils (Bld) [#/Vol] 3.30 10*3/uL Normal 1.20 - 7.70 [facility] Comment on above: Result Comment: Perc ent differential counts (%) should be interpreted in the context of the absolute cell counts (cells/L). Performed By: #### C BCDF ####[address] [address] Neutrophils/100 WBC (Bld) 63.7 % Normal 40.0 - 80.0 [facility] Comment on above: Performed By: #### C BCDF ####[address] [address] Platelets (Bld) [#/Vol] 115 10*3/uL Low 150 - 450 [facility] Comment on above: Performed By: #### C BCDF ####[address] [address] RBC 4.30 x10E12/L Normal 4.00 - 5.20 [facility] Comment on above: Performed By: #### C BCDF ####[address] [address] WBC (Bld) [#/Vol] 5.2 10*3/uL Normal 4.4 - 11.[address] [facility] Comment on above: Performed By: #### C BCDF ####[address] [address] CHEST 1 VIEWon 12-07-2022 CHEST 1 VIEW Normal [facility] CORONAVIRUS 2019 BY PCRon SARS-CoV-2 (COVID-19) RNA CHIARA+probe Ql (Unsp spec) Not detected Normal Not Detected [facility] Comment on above: Result Comment: .Thi s test has received FDA Emergency Use Authorization (EUA) and has beenverified by [facility]. This test is onlyauthorized for the duration of time that circumstances exist to justify theauthorization of the emergency use of in vitro diagnostic tests for thedetection of SARS-CoV-2 virus and/or diagnosis of COVID-19 infection undersection 564(b)(1) of the Act, 21 U.S.C. 360bbb-3(b)(1), unless theauthorization is terminated or revoked sooner.[facility] is certified under CLIA-88 asqualified to perform high complexity testing. [facility] located at [address] [place], [place].SARS-CoV-2/Flu/RSV Multiplex Test:Fact sheet for providers: https://www.fda.gov/media/427931/downloadFact sheet for patients: https://www.fda.gov/media/240013/download Performed By: #### C OV19 ####[address] [address] Lab Specimen Source Nasal, Nasopharyngeal Normal [facility] Comment on above: Performed By: #### C OV19 ####[address] [address] Complete Blood Count + Diffe rentialon 12-07-2022 Basophils/100 WBC (Bld) 0.4 % 0.0 - 2.0 [facility] [place] Work Phone: Erythrocyte distribution width (RBC) [Ratio] 12.5 % See Below [facility] [place] Work Phone: Comment on above: Reference Range: 11. 5 - 14.5 Hematocrit (Bld) [Volume fraction] 39.1 % See Below [facility] bean [place] Work Phone: Comment on above: Reference Range: 36. 0 - 46.0 Hemoglobin (Bld) [Mass/Vol] 13.0 g/dL See Below [facility] bean [place] Work Phone: Comment on above: Reference Range: 12. 0 - 16.0 Lymphocytes/100 WBC (Bld) 24.5 % See Below [facility] [place] Work Phone: Comment on above: Reference Range: 13. 0 - 44.0 MCHC (RBC) [Mass/Vol] 33.2 g/dL See Below [facility] [place] Work Phone: Comment on above: Reference Range: 32. 0 - 36.0 MCV (RBC) [Entitic vol] 91 fL 80 - 100 [facility] [place] Work Phone: Monocytes/100 WBC (Bld) 8.7 % 2.0 - 10.0 [facility] Work Phone: Neutrophils/100 WBC (Bld) 63.7 % See Below [facility] [place] Work Phone: Comment on above: Reference Range: 40. 0 - 80.0 Platelets (Bld) [#/Vol] 115 10*3/uL below low threshold 150 - 450 [facility] Work Phone: RBC (Bld) [#/Vol] 4.30 {x10E12/L} See Below [facility] [place] Work Phone: Comment on above: Reference Range: 4.0 0 - 5.20 WBC (Bld) [#/Vol] 5.2 10*3/uL 4.4 - 11.3 [facility] Work Phone: Complete Blood Count + Differential 0.02 {x10E9/L} See Below [facility] [place] Work Phone: Comment on above: Reference Range: 0.0 0 - 0.10 Complete Blood Count + Differential 0.11 {x10E9/L} See Below [facility] [place] Work Phone: Comment on above: Reference Range: 0.0 0 - 0.70 Complete Blood Count + Differential 0.45 {x10E9/L} See Below [facility] [place] Work Phone: Comment on above: Reference Range: 0.1 0 - 1.00 Complete Blood Count + Differential 1.27 {x10E9/L} See Below [facility] [place] Work Phone: Comment on above: Reference Range: 1.2 0 - 4.80 Complete Blood Count + Differential 3.30 {x10E9/L} See Below [facility] Work Phone: Comment on [...] PCR, Symptomatic Not detected Normal See Below [facility] [place] Work Phone: Comment on above: SOURCE: Nasal, Nasop haryngealReference Range: Not Detected.This test has received FDA Emergency Use Authorization (EUA) and has been verified by [facility]. This test is only authorized for the duration of time that circumstances exist to justify the authorization of the emergency use of in vitro diagnostic tests for the detection of SARS-CoV-2 virus and/or diagnosis of COVID-19 infection under section 564(b)(1) of the Act, 21 U.S.C. 360bbb-3(b)(1), unless the authorization is terminated or revoked sooner. [facility] is certified under CLIA-88 as qualified to perform high complexity testing. Testing is performed in the [facility] laboratory located at [address] [place] [address].SARS-CoV-2/Flu/RSV Multiplex Test: Fact sheet for providers: https://www.fda.gov/media/934230/downloadFact sheet for patients: https://www.fda.gov/media/649469/download Covid 19 Resultson SARS-CoV-2 (COVID-19) RNA CHIARA+probe Ql (Unsp spec) Normal [facility] DRUG SCREEN,URINEon 12-07-19 23 AMPHETAMINE SCREEN,U Negative Normal NEGATIVE [facility] Comment on above: Result Comment: CUTO FF LEVEL: 500 NG/ML Cross-reactivity has been reported with high concentrations of the following drugs: buproprion, chloroquine, chlorpromazine, ephedrine, mephentermine, fenfluramine, phentermine, phenylpropanolamine, pseudoephedrine, and propranolol. Performed By: #### D RUG3 ####[place] [address] BARBITURATES SCREEN,U Positive Abnormal NEGATIVE [facility] Comment on above: Result Comment: CUTO FF LEVEL: 200 NG/ML Performed By: #### D RUG3 ####[place] [address] BENZODIAZEPINES SCREEN,U Negative Normal NEGATIVE [facility] Comment on above: Result Comment: CUTO FF LEVEL: 200 NG/ML Performed By: #### D RUG3 ####[place] [address] CANNABINOIDS SCREEN,U Negative Normal NEGATIVE [facility] Comment on above: Result Comment: CUTO FF LEVEL: 50 NG/ML Performed By: #### D RUG3 ####[place] [address] COCAINE METABOLITE SCREEN,U Negative Normal NEGATIVE [facility] Comment on above: Result Comment: CUTO FF LEVEL: 150 NG/ML Performed By: #### D RUG3 ####[place] [address] DRUG SCREEN COMMENT SEE BELOW Normal [facility] Comment on above: Result Comment: Drug screen results are presumptive and should not be used to assesscompliance with prescribed medication. Contact the [facility] to add-on definitive confirmatory testing if clinicallyindicated..Toxicology [...] laboratory medicaldirectors. Performed By: #### D RUG3 ####[place] [address] FENTANYL SCREEN,URINE Negative Normal NEGATIVE [facility] Comment on above: Result Comment: CUTO FF LEVEL: 5 NG/ML Performed By: #### D RUG3 ####[place] [address] METHADONE SCREEN,U Negative Normal NEGATIVE [facility] Comment on above: Result Comment: CUTO FF LEVEL: 150 NG/ML The metabolite G-bxvdj-opdnjbrnrgqqef (LAAM) is not detected by this method in concentrations that would be found in the urine of patients on LAAM therapy. Performed By: #### D RUG3 ####[place] [address] OPIATES SCREEN,U Negative Normal NEGATIVE [facility] Comment on above: Result Comment: CUTO FF LEVEL: 300 NG/ML The opiate screen does not detect fentanyl, meperidine, or tramadol. Oxycodone is not consistently detected (refer to Oxycodone Screen, Urine result). Performed By: #### D RUG3 ####[place] [address] OXYCODONE SCREEN,U Negative Normal NEGATIVE [facility] Comment on above: Result Comment: CUTO FF LEVEL: 100 NG/ML This test will accurately detect both oxycodone and oxymorphone. Performed By: #### D RUG3 ####[place] [address] PCP SCREEN,U Negative Normal NEGATIVE [facility] Comment on above: Result Comment: CUTO FF LEVEL: 25 NG/ML Cross-reactivity has been reported with dextromethorphan. Performed By: #### D RUG3 ####[place] [address] HCG, Beta Quantitativeon HCG.beta subunit Qn m[IU]/mL [facility] [place] Work Phone: Comment on above: .Total HCG measureme nt is performed using the e[employer] AccessImmunoassay which detects intact HCG and free beta HCG subunit. .This test is not indicated for use as a tumor marker.HCG testing is performed using a different test methodology at [facility] than other [facility]. Direct result comparisonshould only be made within the same method. REF VALUESNON FEMALE <5MALES <5 HCG,BETA-QUANTITATIVEon 02- 0-2022 HCG,BETA-QUANTITATIVE <2 Normal [facility] Comment on above: Result Comment: .Tot al HCG measurement is performed using the [employer] [place] AccessImmunoassay which detects intact HCG and free beta HCG subunit..This test is not indicated for use as a tumor marker.HCG testing is performed using a different test methodology at [facility] than other [facility]. Direct result comparisonshould only be made within the same method.REF VALUESNON FEMALE <5MALES <5 Performed By: #### H CGQU ####[address] [place] [address] Laboratory - Chemistry and C hemistry - challengeon 12-07-2022 Anion gap [Moles/Vol] 11 mmol/L 10 - 20 [facility] [place] Work Phone: Calcium [Mass/Vol] 8.3 mg/dL below low threshold 8.6 - 10.3 [facility] Work Phone: Chloride [Moles/Vol] 104 mmol/L 98 - 107 [facility] Work Phone: CO2 [Moles/Vol] 27 mmol/L 21 - 32 [facility] Work Phone: Creatinine [Mass/Vol] 1.43 mg/dL above high threshold See Below [facility] Work Phone: Comment on above: Reference Range: 0.5 0 - 1.05 Glucose [Mass/Vol] 87 mg/dL 74 - 99 [facility] [place] Work Phone: Potassium [Moles/Vol] 4.5 mmol/L 3.5 - 5.3 [facility] [place] Work Phone: Sodium [Moles/Vol] 137 mmol/L 136 - 145 [facility] [place] Work Phone: Urea nitrogen [Mass/Vol] 23 mg/dL 6 - 23 [facility] [place] Work Phone: Laboratory - Drug toxicology on 12-07-2022 Amphetamines Screen Ql (U) Negative NEGATIVE [facility] [place] Work Phone: Comment on above: CUTOFF LEVEL: 500 NG /ML Cross-reactivity has been reported with high concentrations of the following drugs: buproprion, chloroquine, chlorpromazine, ephedrine, mephentermine, fenfluramine, phentermine, phenylpropanolamine, pseudoephedrine, and propranolol. Barbiturates Screen Ql (U) Positive Abnormal NEGATIVE [facility] [place] Work Phone: Comment on above: CUTOFF LEVEL: 200 NG /ML Benzodiazepines Ql (U) Negative NEGATIVE [facility] [place] Work Phone: Comment on above: CUTOFF LEVEL: 200 NG /ML Benzoylecgonine Screen Ql (U) Negative NEGATIVE [facility] [place] Work Phone: Comment on above: CUTOFF LEVEL: 150 NG /ML Cannabinoids Screen Ql (U) Negative NEGATIVE [facility] [place] Work Phone: Comment on above: CUTOFF LEVEL: 50 NG/ ML Methadone Screen Ql (U) Negative NEGATIVE [facility] [place] Work Phone: Comment on above: CUTOFF LEVEL: 150 NG /ML The metabolite L-ohilu-ccuvjfarobsmpk (LAAM) is not detected by this method in concentrations that would be found in the urine of patients on LAAM therapy. Opiates Screen Ql (U) Negative NEGATIVE [facility] Work Phone: Comment on above: CUTOFF LEVEL: 300 NG /ML The opiate screen does not detect fentanyl, meperidine, or tramadol. Oxycodone is not consistently detected (refer to Oxycodone Screen, Urine result). oxyCODONE+oxyMORphone Screen Ql (U) Negative NEGATIVE [facility] Work Phone: Comment on above: CUTOFF LEVEL: 100 NG /ML This test will accurately detect both oxycodone and oxymorphone. Phencyclidine Ql (U) Negative NEGATIVE [facility] Work Phone: Comment on above: CUTOFF LEVEL: 25 NG/ ML Cross-reactivity has been reported with dextromethorphan. No Panel Informationon 12-07 Negative NEGATIVE [facility] Work Phone: Comment on above: CUTOFF LEVEL: 5 NG/M L SEE BELOW [facility] [place] Work Phone: Comment on above: Drug screen results are presumptive and should not be used to assess compliance with prescribed medication. Contact the performing [facility] laboratory to add-on definitive confirmatory testing if [...] laboratory medical directors. 45 {mL/min/1.73m2} Abnormal >90 [facility] [place] Work Phone: Comment on above: CALCULATIONS OF FRIEDA MATED GFR ARE PERFORMED USING THE 2020 CKD-EPI STUDY REFIT EQUATION WITHOUT THE RACE VARIABLE FOR THE IDMS-TRACEABLE CREATININE METHODS.https://jasn.asnjournals.org/content// N.3599095431 Provider Note - ED v3on 11-19 Provider Note - ED v3 Normal [facility] Radiologyon 12-07-2022 XR Chest Single view Normal [facility] Work Phone: Risk Screen - Adult Emergenc yon 12-07-2022 Risk Screen - Adult Emergency Normal [facility] Triage - EDon 12-07-2022 Triage - ED Normal [facility] Office Visit (Internal Medic ine)on 12-02-2022 Follow-up [...] Transmission to [facility]; Last Updated By: [employer]; 12/02/2022 2:35:17 PM Hypomagnesemia Start: Magnesium 400 MG Oral Tablet; Take 1 tablet daily Rx By: Jeanie Ayala; Dispense: 0 Days ; #:30 Tablet; Refill: 11;For: Hypomagnesemia; SHARLENE = N; Verified Transmission to [facility]; Last Updated By: [employer]; 12/02/2022 2:35:16 PM Seizure Neurology - General Referral Evaluation and Treatment Evaluate AND Treat Status: Complete Done: [id number] Ordered;For: Seizure; Ordered By: Jeanie Ayala Performed: Due: [id number]; Last Updated By: Alyce Rao; 12/02/2022 3:34:[address] Stage 3b chronic kidney disease Nephrology Referral Evaluation and Treatment Evaluate AND Treat Status: Complete Done: [id number] Ordered;For: Stage 3b chronic kidney disease; Ordered By: Jeanie Ayala Performed: Due: [id number]; Last Updated By: Alyce Rao; 12/02/2022 4:10:22 [...] Hypokalemia (276 (more content not included)... Normal [facility] CBC AND DIFFERENTIALon 11-26 % AUTOMATED IMMATURE GRAN 0.7 % Normal 0.0 - 0.9 [facility] Comment on above: Result Comment: Suze ture Granulocyte Count (IG) includes promyelocytes, myelocytes and metamyelocytes but does not include bands. Percent differential counts (%) should be interpreted in the context of the absolute cell counts (cells/L). Performed By: #### C BCDF ####[address] [address] Basophils (Bld) [#/Vol] 0.02 10*3/uL Normal 0.00 - 0.10 [facility] Comment on above: Performed By: #### C BCDF ####[address] [address] Basophils/100 WBC (Bld) 0.3 % Normal 0.0 - 2.0 [facility] Comment on above: Performed By: #### C BCDF ####[address] [address] Eosinophils (Bld) [#/Vol] 0.08 10*3/uL Normal 0.00 - 0.70 [facility] Comment on above: Performed By: #### C BCDF ####[address] [address] Eosinophils/100 WBC (Bld) 1.2 % Normal 0.0 - 6.0 [facility] Comment on above: Performed By: #### C BCDF ####[address] [address] Erythrocyte distribution width (RBC) [Ratio] 12.7 % Normal 11.5 - 14.5 [facility] Comment on above: Performed By: #### C BCDF ####[address] [address] Hematocrit (Bld) [Volume fraction] 40.3 % Normal 36.0 - 46.0 [facility] Comment on above: Performed By: #### C BCDF ####[address] [address] Hemoglobin (Bld) [Mass/Vol] 13.4 g/dL Normal 12.0 - 16.0 [facility] Comment on above: Performed By: #### C BCDF ####[address] [address] Lymphocytes (Bld) [#/Vol] 1.68 10*3/uL Normal 1.20 - 4.80 [facility] Comment on above: Performed By: #### C BCDF ####[address] [address] Lymphocytes/100 WBC (Bld) 24.3 % Normal 13.0 - 44.0 [facility] Comment on above: Performed By: #### C BCDF ####[address] [address] MCHC (RBC) [Mass/Vol] 33.3 g/dL Normal 32.0 - 36.0 [facility] Comment on above: Performed By: #### C BCDF ####[address] [address] MCV (RBC) [Entitic vol] 90 fL Normal 80 - 100 [facility] Comment on above: Performed By: #### C BCDF ####[address] [address] Monocytes (Bld) [#/Vol] 0.58 10*3/uL Normal 0.10 - 1.00 [facility] Comment on above: Performed By: #### C BCDF ####[address] [address] Monocytes/100 WBC (Bld) 8.4 % Normal 2.0 - 10.0 [facility] Comment on above: Performed By: #### C BCDF ####[address] [address] Neutrophils (Bld) [#/Vol] 4.50 10*3/uL Normal 1.20 - 7.70 [facility] Comment on above: Result Comment: Perc ent differential counts (%) should be interpreted in the context of the absolute cell counts (cells/L). Performed By: #### C BCDF ####[address] [address] Neutrophils/100 WBC (Bld) 65.1 % Normal 40.0 - 80.0 [facility] Comment on above: Performed By: #### C BCDF ####[address] [address] Platelets (Bld) [#/Vol] 134 10*3/uL Low 150 - 450 [facility] Comment on above: Result Comment: Plat elet count verified by smear review. no plt clumps or clots seen Performed By: #### C BCDF ####[address] [address] RBC 4.47 x10E12/L Normal 4.00 - 5.20 [facility] Comment on above: Performed By: #### C BCDF ####[address] [address] WBC (Bld) [#/Vol] 6.9 10*3/uL Normal 4.4 - 11.[address] [facility] Comment on above: Performed By: #### C BCDF ####[address] [address] COMPREHENSIVE PANELon 2022 Albumin [Mass/Vol] 4.0 g/dL Normal 3.4 - 5.[address] [facility] Comment on above: Performed By: #### C MP ####[address] [address] ALP [Catalytic activity/Vol] 69 U/L Normal 33 - 110 [facility] Comment on above: Performed By: #### C MP ####[address] [address] ALT [Catalytic activity/Vol] 17 U/L Normal 7 - 45 [facility] Comment on above: Result Comment: Marjan ents treated with Sulfasalazine may generate falsely decreased results for ALT. Performed By: #### C MP ####[address] [address] Anion gap [Moles/Vol] 13 mmol/L Normal 10 - 20 [facility] Comment on above: Performed By: #### C MP ####[address] [address] AST [Catalytic activity/Vol] 20 U/L Normal 9 - 39 [facility] Comment on above: Performed By: #### C MP ####[address] [address] Bilirubin [Mass/Vol] 0.3 mg/dL Normal 0.0 - 1.2 [facility] Comment on above: Performed By: #### C MP ####[address] [address] Calcium [Mass/Vol] 9.2 mg/dL Normal 8.6 - 10.[address] [facility] Comment on above: Performed By: #### C MP ####[address] [address] Chloride [Moles/Vol] 101 mmol/L Normal 98 - 107 [facility] Comment on above: Performed By: #### C MP ####[address] [address] Creatinine [Mass/Vol] 1.47 mg/dL High 0.50 - 1.05 [facility] Comment on above: Performed By: #### C MP ####[address] [address] GFR/1.73 sq M.predicted among non-blacks MDRD (S/P/Bld) [Vol rate/Area] 43 mL/min/{1.73_m2} Abnormal >90 [facility] Comment on above: Result Comment: CALC ULATIONS OF ESTIMATED GFR ARE PERFORMED USING THE 2020 CKD-EPI STUDY REFIT EQUATION WITHOUT THE RACE VARIABLE FOR THE IDMS-TRACEABLE CREATININE METHODS.https://jasn.asnjournals.org/content/early/ N.5342074957 Performed By: #### C MP ####[address] [address] Glucose [Mass/Vol] 89 mg/dL Normal 74 - [address] [facility] Comment on above: Performed By: #### C MP ####[address] [address] HCO3 (Bld) [Moles/Vol] 27 mmol/L Normal 21 - 32 [facility] Comment on above: Performed By: #### C MP ####[address] [address] Potassium [Moles/Vol] 3.9 mmol/L Normal 3.5 - 5.3 [facility] Comment on above: Performed By: #### C MP ####[address] [address] Protein [Mass/Vol] 6.6 g/dL Normal 6.4 - 8.[address] [facility] Comment on above: Performed By: #### C MP ####[address] [address] Sodium [Moles/Vol] 137 mmol/L Normal 136 - [address] [facility] Comment on above: Performed By: #### C MP ####[address] [address] Urea nitrogen [Mass/Vol] 22 mg/dL Normal 6 - 23 [facility] Comment on above: Performed By: #### C MP ####[address] [address] CT HEAD WO CONTRASTon 2022 CT HEAD WO CONTRAST Normal [facility] CT Head without Contraston 0 11-26-2022 CT Head limited WO contrast Normal [facility] [place] Work Phone: Complete Blood Count + Diffe rentialon 11-26-2022 Basophils/100 WBC (Bld) 0.3 % 0.0 - 2.0 [facility] [place] Work Phone: Erythrocyte distribution width (RBC) [Ratio] 12.7 % See Below [facility] [place] Work Phone: Comment on above: Reference Range: 11. 5 - 14.5 Hematocrit (Bld) [Volume fraction] 40.3 % See Below [facility] Work Phone: Comment on above: Reference Range: 36. 0 - 46.0 Hemoglobin (Bld) [Mass/Vol] 13.4 g/dL See Below [facility] Work Phone: Comment on above: Reference Range: 12. 0 - 16.0 Lymphocytes/100 WBC (Bld) 24.3 % See Below [facility] Work Phone: Comment on above: Reference Range: 13. 0 - 44.0 MCHC (RBC) [Mass/Vol] 33.3 g/dL See Below [facility] Work Phone: Comment on above: Reference Range: 32. 0 - 36.0 MCV (RBC) [Entitic vol] 90 fL 80 - 100 [facility] Work Phone: Monocytes/100 WBC (Bld) 8.4 % 2.0 - 10.0 [facility] Work Phone: Neutrophils/100 WBC (Bld) 65.1 % See Below [facility] Work Phone: Comment on above: Reference Range: 40. 0 - 80.0 Platelets (Bld) [#/Vol] 134 10*3/uL below low threshold 150 - 450 [facility] Work Phone: Comment on above: Platelet count verif ied by smear review. no plt clumps or clots seen RBC (Bld) [#/Vol] 4.47 {x10E12/L} See Below [facility] Work Phone: Comment on above: Reference Range: 4.0 0 - 5.20 WBC (Bld) [#/Vol] 6.9 10*3/uL 4.4 - 11.3 [facility] [place] Work Phone: Complete Blood Count + Differential 0.02 {x10E9/L} See Below [facility] Work Phone: Comment on above: Reference Range: 0.0 0 - 0.10 Complete Blood Count + Differential 0.08 {x10E9/L} See Below [facility] Work Phone: Comment on above: Reference Range: 0.0 0 - 0.70 Complete Blood Count + Differential 0.58 {x10E9/L} See Below [facility] Work Phone: Comment on above: Reference Range: 0.1 0 - 1.00 Complete Blood Count + Differential 1.68 {x10E9/L} See Below [facility] Work Phone: Comment on above: Reference Range: 1.2 0 - 4.80 Complete Blood Count + Differential 4.50 {x10E9/L} See Below [facility] Work Phone: Comment on above: Reference Range: 1.2 0 - 7.70 Percent differential counts (%) should be interpreted in the context of the absolute cell counts (cells/L). Complete Blood Count + Differential 1.2 % 0.0 - 6.0 [facility] Work Phone: Complete Blood Count + Differential 0.7 % 0.0 - 0.9 [facility] Work Phone: Comment on above: Immature Granulocyte Count (IG) includes promyelocytes, myelocytes and metamyelocytes but does not include bands. Percent differential counts (%) should be interpreted in the context of the absolute cell counts (cells/L). LACTATEon 11-26-2022 Lactate [Moles/Vol] 1.9 mmol/L Normal 0.4 - 2.0 [facility] Comment on above: Result Comment: Nathalie puncture immediately after or during the administration of Metamizole may lead to falsely low results. Testing should be performed immediately prior to Metamizole dosing. Performed By: #### L ACT ####[address] [address] LIPASEon 11-26-2022 Lipase [Catalytic activity/Vol] 59 U/L Normal 9 - 82 [facility] Comment on above: Result Comment: Nathalie puncture immediately after or during the administration of Metamizole may lead to falsely low results. Testing should be performed immediately prior to Metamizole dosing. V-axmqxg-t-benzoquinone imine (metabolite of Acetaminophen) will generate erroneously low results in samples for patients that have taken toxic doses of acetaminophen. Performed By: #### L IPAS ####[address] [address] Laboratory - Chemistry and C hemistry - challengeon 11-26-2022 Albumin BCP dye [Mass/Vol] 4.0 g/dL 3.4 - 5.0 [facility] [place] Work Phone: ALP [Catalytic activity/Vol] 69 U/L 33 - 110 [facility] Work Phone: ALT With P-5'-P [Catalytic activity/Vol] 17 U/L 7 - 45 [facility] Work Phone: Comment on above: Patients treated wit h Sulfasalazine may generate falsely decreased results for ALT. Anion gap [Moles/Vol] 13 mmol/L 10 - 20 [facility] [place] Work Phone: AST With P-5'-P [Catalytic activity/Vol] 20 U/L 9 - 39 [facility] [place] Work Phone: Bilirubin [Mass/Vol] 0.3 mg/dL 0.0 - 1.2 [facility] [place] Work Phone: Calcium [Mass/Vol] 9.2 mg/dL 8.6 - 10.3 [facility] Work Phone: Chloride [Moles/Vol] 101 mmol/L 98 - 107 [facility] Work Phone: CO2 [Moles/Vol] 27 mmol/L 21 - 32 [facility] Work Phone: Creatinine [Mass/Vol] 1.47 mg/dL above high threshold See Below [facility] Work Phone: Comment on above: Reference Range: 0.5 0 - 1.05 Glucose [Mass/Vol] 89 mg/dL 74 - 99 [facility] [...] be performed immediately prior to Metamizole dosing. Z-iveubd-i-benzoquinone imine (metabolite of Acetaminophen) will generate erroneously low results in samples for patients that have taken toxic doses of acetaminophen. MAGNESIUMon 11-26-2022 Magnesium [Mass/Vol] 1.37 mg/dL Low 1.60 - 2.40 [facility] Comment on above: Performed By: #### M G ####[address] [address] MAGNESIUM Canceled Normal [facility] Comment on above: Order Comment: TEST MAGNESIUM WAS CANCELLED, 11/26/2022 15:49 DUPLICATE ORDER. Performed By: #### M G ####[address] [address] Magnesium, Serumon Magnesium [Mass/Vol] Canceled [facility] [place] Work Phone: Magnesium [Mass/Vol] 1.37 mg/dL below low threshold See Below [facility] [place] Work Phone: Comment on above: Reference Range: 1.6 0 - 2.40 No Panel Informationon 11-26 43 {mL/min/1.73m2} Abnormal >90 [facility] [place] Work Phone: Comment on above: CALCULATIONS OF FRIEDA MATED GFR ARE PERFORMED USING THE 2020 CKD-EPI STUDY REFIT EQUATION WITHOUT THE RACE VARIABLE FOR THE IDMS-TRACEABLE CREATININE METHODS.https://jasn.asnjournals.org/content/early// N.1990794622 Provider Note - ED v3on 0 Provider Note - ED v3 Normal [facility] Risk Screen - Adult Emergenc yon 11-26-2022 Risk Screen - Adult Emergency Normal [facility] TSHon 11-26-2022 TSH Qn 2.41 m[IU]/L Normal 0.44 - 3.98 [facility] Comment on above: Result Comment: TSH testing is performed using different testing methodology at [facility] than at other [facility]. Direct result comparisons should only be made within the same method. Performed By: #### T SH2 ####[address] [address] TSH - Thyroid Stimulating Ho contreras, Serumon 11-26-2022 TSH Qn 2.41 m[IU]/L See Below [facility] Work Phone: Comment on above: Reference Range: 0.4 4 - 3.98 TSH testing is performed using different testing methodology at [facility] than at other [facility]. Direct result comparisons should only be made within the same method. Triage - EDon 11-26-2022 Triage - ED Normal [facility] URINALYSIS WITH CULTURE IF I NDICATEDon 11-26-2022 Appearance (U) Canceled [facility] Comment on above: Order Comment: TEST URINALYSIS WITH CULTURE IF INDICATED WAS CANCELLED, 11/26/2022 21:55discharged. Performed By: #### U ARFX ####[address] [address] ASCORBIC ACID Canceled [facility] Comment on above: Order Comment: TEST URINALYSIS WITH CULTURE IF INDICATED WAS CANCELLED, 11/26/2022 21:55discharged. Result Comment: Conc entrations > = 20 mg/dL of ascorbic acid can be expected to cause stronginterference in the reactions testing for glucose, nitrite and blood. It isrecommended to discontinue Vitamin C administration and retest in 10 hours. Performed By: #### U ARFX ####[address] [address] Bilirubin Ql (U) Canceled [facility] Comment on above: Order Comment: TEST URINALYSIS WITH CULTURE IF INDICATED WAS CANCELLED, 11/26/2022 21:55discharged. Performed By: #### U ARFX ####[address] [address] Color (U) Canceled [facility] Comment on above: Order Comment: TEST URINALYSIS WITH CULTURE IF INDICATED WAS CANCELLED, 11/26/2022 21:55discharged. Performed By: #### U ARFX ####[address] [address] Glucose Ql (U) Canceled [facility] Comment on above: Order Comment: TEST URINALYSIS WITH CULTURE IF INDICATED WAS CANCELLED, 11/26/2022 21:55discharged. Performed By: #### U ARFX ####[address] [address] Hemoglobin Ql (U) Canceled [facility] Comment on above: Order Comment: TEST URINALYSIS WITH CULTURE IF INDICATED WAS CANCELLED, 11/26/2022 21:55discharged. Performed By: #### U ARFX ####[address] [address] Ketones Ql (U) Canceled [facility] Comment on above: Order Comment: TEST URINALYSIS WITH CULTURE IF INDICATED WAS CANCELLED, 11/26/2022 21:55discharged. Performed By: #### U ARFX ####[address] [address] Leukocyte esterase Test strip Ql (U) Canceled [facility] Comment on above: Order Comment: TEST URINALYSIS WITH CULTURE IF INDICATED WAS CANCELLED, 11/26/2022 21:55discharged. Performed By: #### U ARFX ####[address] [address] Nitrite Ql (U) Canceled [facility] Comment on above: Order Comment: TEST URINALYSIS WITH CULTURE IF INDICATED WAS CANCELLED, 11/26/2022 21:55discharged. Performed By: #### U ARFX ####[address] [address] pH Canceled [facility] [facility] Comment on above: Order Comment: TEST URINALYSIS WITH CULTURE IF INDICATED WAS CANCELLED, 11/26/2022 21:55discharged. Performed By: #### U ARFX ####[address] [address] Protein Ql (U) Canceled [facility] Comment on above: Order Comment: TEST URINALYSIS WITH CULTURE IF INDICATED WAS CANCELLED, 11/26/2022 21:55discharged. Performed By: #### U ARFX ####[address] [address] Specific gravity (U) [Rel density] Canceled Normal [facility] Comment on above: Order Comment: TEST URINALYSIS WITH CULTURE IF INDICATED WAS CANCELLED, 11/26/2022 21:55discharged. Performed By: #### U ARFX ####[address] [address] UROBILINOGEN Canceled [facility] Comment on above: Order Comment: TEST URINALYSIS WITH CULTURE IF INDICATED WAS CANCELLED, 11/26/2022 21:55discharged. Performed By: #### U ARFX ####[address] [address] Office Visit (Cardiology)on 11-25-2022 Follow-up visit Diagnoses/Problems Assessed History of acute renal failure (V13.09) (Z87.448) Body mass index (BMI) of 38.0 to 38.9 in adult (V85.38) (Z68.38) Dizziness (780.4) (R42) Falls (E888.9) (W19.XXXA) Medication management (V58.69) (Z79.899) Seizure (780.39) (R56.9) Orders History of acute renal failure Nephrology Referral Evaluation and Treatment Evaluate AND Treat Status: Hold For - Scheduling Requested for: [id number] Seizure Neurology - General Referral Evaluation and Treatment Evaluate AND Treat Status: Hold For - Scheduling Requested for: [id number] Unlinked Stop: hydroCHLOROthiazide 12.5 MG Oral Capsule [...] positions. BP not currently checked at the [facility] and patient hypotensive in the office. In further conversation, patient reports a history of acute renal failure approximately 22 years ago and requesting to see a surveyor helper rod to establish care. She also is not happy with her current Neurologist in [place] and would like a referral placed to [...] Date: Jun (more content not included)... Normal [employer] Tobacco Screening.on 023 Fall risk assessment b) One or more fall s in the last year [employer] Work Phone: Tobacco use status CPHS b) No [employer] Work Phone: Office Visit (Internal Medic ine)on [...] more fall s in the last year [facility] Work Phone: Tobacco use status CPHS b) No [facility] Work Phone: Narrative Note - Outpatient- CPS for bubble study and definiton 11-12-2022 Narrative Note - Outpatient-CPS for bubble study and definit Normal [facility] Chart Updateon 11-10-2022 Chart Update [...] and steps are symmetrical with adequate clearance. custodial goal of ambulating up to 100 feet and short-term goal to 50 feet on even surfaces with rollator. No changes to anticipated addition of aquatic therapy to improve strengthening. Staff to scan and PT notes for review at next visit. 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 This note was generated using GLO software. It may contain errors in wording, [...] congestive heart (more content not included)... Normal [employer] Tobacco Screening.on 023 Fall risk assessment b) One or more fall s in the last year [employer] Work Phone: Tobacco use status CPHS b) No [employer] Work Phone: Office Visit (Cardiology)on 11-05-2022 Follow-up visit Diagnoses/Problems Assessed Family history of Diabetes Mellitus (V18.0) : Family History mother Palpitation (785.1) (R00.2) Dizziness (780.4) (R42) Orders Dizziness Echocardiogram; Status:Hold For - Scheduling; Requested for:05Nov2022; Holter Monitor 3-14 Days; Status:Hold For - Scheduling; Requested for:05Nov2022; Palpitation IO EKG Electrocardiogram- 12 Lead; Status:Complete - Retrospective Authorization; Done: 05Nov2022 Chief Complaint Palpitations History of Present [id number] lady with a medical history of hypertension, [...] % Otic (more content not included)... Normal [employer] Tobacco Screening.on 023 Fall risk assessment b) One or more fall s in the last year [employer] Work Phone: Tobacco use status CPHS b) No [employer] Work Phone: KEPPRAon 11-01-2022 KEPPRA 18 ug/mL Normal 10 - 40 [facility] Comment on above: Result Comment: Briv aracetam may falsely increase the amount of levetiracetam measured by this method. Serum levels should be confirmed by a valid chromatographic method for patients with these drugs co-present in circulation. Performed By: #### K EPPR ####[id number] [place] [address] CALCIUM, IONIZEDon CALCIUM, IONIZED 1.08 mmol/L Low 1.10 - 1.[address] [facility] Comment on above: Performed By: #### I ONC1 ####[address] [address] CBC AND DIFFERENTIALon 10-31 % AUTOMATED IMMATURE GRAN 0.9 % Normal 0.0 - 0.9 [facility] Comment on above: Result Comment: Suze ture Granulocyte Count (IG) includes promyelocytes, myelocytes and metamyelocytes but does not include bands. Percent differential counts (%) should be interpreted in the context of the absolute cell counts (cells/L). Performed By: #### C BCDF ####[address] [address] Basophils (Bld) [#/Vol] 0.04 10*3/uL Normal 0.00 - 0.10 [facility] Comment on above: Performed By: #### C BCDF ####[address] [address] Eosinophils (Bld) [#/Vol] 0.12 10*3/uL Normal 0.00 - 0.70 [facility] Comment on above: Performed By: #### C BCDF ####[address] [address] Eosinophils/100 WBC (Bld) 1.2 % Normal 0.0 - 6.0 [facility] Comment on above: Performed By: #### C BCDF ####[address] [address] Lymphocytes (Bld) [#/Vol] 2.32 10*3/uL Normal 1.20 - 4.80 [facility] Comment on above: Performed By: #### C BCDF ####[address] [address] Monocytes (Bld) [#/Vol] 0.78 10*3/uL Normal 0.10 - 1.00 [facility] Comment on above: Performed By: #### C BCDF ####[address] [address] Neutrophils (Bld) [#/Vol] 6.32 10*3/uL Normal 1.20 - 7.70 [facility] Comment on above: Result Comment: Perc ent differential counts (%) should be interpreted in the context of the absolute cell counts (cells/L). Performed By: #### C BCDF ####[place] [id number] RBC 4.71 x10E12/L Normal 4.00 - 5.20 [facility] Comment on above: Performed By: #### C BCDF ####[place] [id number] COMPREHENSIVE PANELon 2022 Albumin [Mass/Vol] 4.2 g/dL Normal 3.4 - 5.[address] [facility] Comment on above: Performed By: #### C MP ####[place] [id number] ALP [Catalytic activity/Vol] 71 U/L Normal 33 - 110 [facility] Comment on above: Performed By: #### C MP ####[address] [address] ALT [Catalytic activity/Vol] 17 U/L Normal 7 - 45 [facility] Comment on above: Result Comment: Marjan ents treated with Sulfasalazine may generate falsely decreased results for ALT. Performed By: #### C MP ####[address] [address] Anion gap [Moles/Vol] 15 mmol/L Normal 10 - 20 [facility] Comment on above: Performed By: #### C MP ####[place] [id number] AST [Catalytic activity/Vol] 22 U/L Normal 9 - 39 [facility] Comment on above: Performed By: #### C MP ####[address] [address] Bilirubin [Mass/Vol] 0.4 mg/dL Normal 0.0 - 1.2 [facility] Comment on above: Performed By: #### C MP ####[address] [address] Calcium [Mass/Vol] 9.3 mg/dL Normal 8.6 - 10.[address] [facility] Comment on above: Performed By: #### C MP ####[address] [address] Chloride [Moles/Vol] 99 mmol/L Normal 98 - 107 [facility] Comment on above: Performed By: #### C MP ####[address] [address] Creatinine [Mass/Vol] 1.46 mg/dL High 0.50 - 1.05 [facility] Comment on above: Performed By: #### C MP ####[address] [address] GFR/1.73 sq M.predicted among non-blacks MDRD (S/P/Bld) [Vol rate/Area] 44 mL/min/{1.73_m2} Abnormal >90 [facility] Comment on above: Result Comment: CALC ULATIONS OF ESTIMATED GFR ARE PERFORMED USING THE 2020 CKD-EPI STUDY REFIT EQUATION WITHOUT THE RACE VARIABLE FOR THE IDMS-TRACEABLE CREATININE METHODS.https://jasn.asnjournals.org/content/early/ N.0535600934 Performed By: #### C MP ####[address] [address] Glucose [Mass/Vol] 101 mg/dL High 74 - [address] [facility] Comment on above: Performed By: #### C MP ####[address] [address] HCO3 (Bld) [Moles/Vol] 27 mmol/L Normal 21 - 32 [facility] Comment on above: Performed By: #### C MP ####[address] [address] Potassium [Moles/Vol] 3.5 mmol/L Normal 3.5 - 5.3 [facility] Comment on above: Performed By: #### C MP ####[address] [address] Protein [Mass/Vol] 6.9 g/dL Normal 6.4 - 8.[address] [facility] Comment on above: Performed By: #### C MP ####[address] [address] Sodium [Moles/Vol] 137 mmol/L Normal 136 - [address] [facility] Comment on above: Performed By: #### C MP ####[address] [address] Urea nitrogen [Mass/Vol] 27 mg/dL High 6 - 23 [facility] Comment on above: Performed By: #### C MP ####[address] [address] CREATINE KINASEon 10-31-2022 CK [Catalytic activity/Vol] 59 U/L Normal 0 - 215 [facility] Comment on above: Performed By: #### C K ####[address] [address] Calcium, Ionized Levelon Calcium, Ionized Level 1.08 mmol/L below low threshold See Below [place] [address] [employer] Work Phone: Comment on above: Reference Range: 1.1 0 - 1.33 Complete Blood Count + Diffe rentialon 10-31-2022 Basophils/100 WBC (Bld) 0.4 % Normal 0.0 - 2.0 [place] [address] [employer] Work Phone: Comment on above: Performed By: #### C BCDF ####[address] [address] Erythrocyte distribution width (RBC) [Ratio] 13.1 % Normal 11.5 - 14.5 [place] [address] [employer] Work Phone: Comment on above: Reference Range: 11. 5 - 14.5 Performed By: #### C BCDF ####[address] [address] Hematocrit (Bld) [Volume fraction] 42.3 % Normal 36.0 - 46.[address] Work Phone: Comment on above: Reference Range: 36. 0 - 46.0 Performed By: #### C BCDF ####[address] [address] Hemoglobin (Bld) [Mass/Vol] 14.1 g/dL Normal 12.0 - 16.[address] Work Phone: Comment on above: Reference Range: 12. 0 - 16.0 Performed By: #### C BCDF ####[address] [address] Lymphocytes/100 WBC (Bld) 24.0 % Normal 13.0 - 44.[address] Work Phone: Comment on above: Reference Range: 13. 0 - 44.0 Performed By: #### C BCDF ####[address] [address] MCHC (RBC) [Mass/Vol] 33.3 g/dL Normal 32.0 - 36.[address] Work Phone: Comment on above: Reference Range: 32. 0 - 36.0 Performed By: #### C BCDF ####[address] [address] MCV (RBC) [Entitic vol] 90 fL Normal 80 - [address] Work Phone: Comment on above: Performed By: #### C BCDF ####[address] [address] Monocytes/100 WBC (Bld) 8.1 % Normal 2.0 - 10.[address] Work Phone: Comment on above: Performed By: #### C BCDF ####[address] [address] Neutrophils/100 WBC (Bld) 65.4 % Normal 40.0 - 80.[address] Work Phone: Comment on above: Reference Range: 40. 0 - 80.0 Performed By: #### C BCDF ####[address] [address] Platelets (Bld) [#/Vol] 152 10*3/uL Normal 150 - [address] Work Phone: Comment on above: Performed By: #### C BCDF ####[address] [address] RBC (Bld) [#/Vol] 4.71 {x10E12/L} See Below [address] Work Phone: Comment on above: Reference Range: 4.0 0 - 5.20 WBC (Bld) [#/Vol] 9.7 10*3/uL Normal 4.4 - 11.3 [facility] diol[address] Work Phone: Comment on above: Performed By: #### C BCDF ####[address] [address] Complete Blood Count + Differential 0.04 {x10E9/L} See Below [address] Work Phone: Comment on above: Reference Range: 0.0 0 - 0.10 Complete Blood Count + Differential 0.12 {x10E9/L} See Below [address] Work Phone: Comment on above: Reference Range: 0.0 0 - 0.70 Complete Blood Count + Differential 0.78 {x10E9/L} See Below [address] Work Phone: Comment on above: Reference Range: 0.1 0 - 1.00 Complete Blood Count + Differential 2.32 {x10E9/L} See Below [address] Work Phone: Comment on above: Reference Range: 1.2 0 - 4.80 Complete Blood Count + Differential 6.32 {x10E9/L} See Below [address] Work Phone: Comment on above: Reference Range: 1.2 0 - 7.70 Percent differential counts (%) should be interpreted in the context of the absolute cell counts (cells/L). Complete Blood Count + Differential 1.2 % 0.0 - 6.[address] Work Phone: Complete Blood Count + Differential 0.9 % 0.0 - 0.[address] Work Phone: Comment on above: Immature Granulocyte Count (IG) includes promyelocytes, myelocytes and metamyelocytes but does not include bands. Percent differential counts (%) should be interpreted in the context of the absolute cell counts (cells/L). Creatine Kinase, Levelon CK [Catalytic activity/Vol] 59 U/L 0 - [address] Work Phone: Keppra, Levelon 10-31-2022 levETIRAcetam [Mass/Vol] 18 ug/mL 10 - [address] Work Phone: Comment on above: Brivaracetam may fal sely increase the amount of levetiracetam measured by this method. Serum levels should be confirmed by a valid chromatographic method for patients with these drugs co-present in circulation. LACTATEon 10-31-2022 Lactate [Moles/Vol] 2.2 mmol/L High 0.4 - 2.0 [facility] Comment on above: Result Comment: Nathalie puncture immediately after or during the administration of Metamizole may lead to falsely low results. Testing should be performed immediately prior to Metamizole dosing. Performed By: #### L ACT ####[facility] [place] [address] Laboratory - Chemistry and C hemistry - challengeon 10-31-2022 Albumin BCP dye [Mass/Vol] 4.2 g/dL 3.4 - 5.[address] Work Phone: ALP [Catalytic activity/Vol] 71 U/L 33 - 110 -[address] Work Phone: ALT With P-5'-P [Catalytic activity/Vol] 17 U/L 7 - [address] Work Phone: Comment on above: Patients treated wit h Sulfasalazine may generate falsely decreased results for ALT. Anion gap [Moles/Vol] 15 mmol/L 10 - [address] Work Phone: AST With P-5'-P [Catalytic activity/Vol] 22 U/L 9 - [address] Work Phone: Bilirubin [Mass/Vol] 0.4 mg/dL 0.0 - 1.2 -C [address] Work Phone: Calcium [Mass/Vol] 9.3 mg/dL 8.6 - 10.3 -Car diology[address] Work Phone: Chloride [Moles/Vol] 99 mmol/L 98 - 107 -C ar[address] Work Phone: CO2 [Moles/Vol] 27 mmol/L 21 - 32 -Cardio logy[address] Work Phone: Creatinine [Mass/Vol] 1.46 mg/dL above high threshold See Below [address] Work Phone: Comment on above: Reference Range: 0.5 0 - 1.05 Glucose [Mass/Vol] 101 mg/dL above high threshold 74 - [address] Work Phone: Potassium [Moles/Vol] 3.5 mmol/L 3.5 - 5.[address] Work Phone: Protein [Mass/Vol] 6.9 g/dL 6.4 - 8.2 -Car diology- [place] [address] [place] Work Phone: Sodium [Moles/Vol] 137 mmol/L 136 - 145 [facility] di[facility]- [address] Work Phone: Urea nitrogen [Mass/Vol] 27 mg/dL above high threshold 6 - 23 -[place] [address] [place] Work Phone: Lactate, Levelon 10-31-2022 Lactate [Moles/Vol] 2.2 mmol/L above high threshold 0.4 - 2.0 -[address] Work Phone: Comment on above: Venipuncture immedia tely after or during the administration of Metamizole may lead to falsely low results. Testing should be performed immediately prior to Metamizole dosing. No Panel Informationon 10-31 44 {mL/min/1.73m2} Abnormal >90 -Car [employer] Work Phone: Comment on above: CALCULATIONS OF FRIEDA MATED GFR ARE PERFORMED USING THE 2020 CKD-EPI STUDY REFIT EQUATION WITHOUT THE RACE VARIABLE FOR THE IDMS-TRACEABLE CREATININE METHODS.https://jasn.asnjournals.org/content// N.8391323835 Provider Note - ED v3on 10-18 Provider Note - ED v3 Normal [facility] Risk Screen - Adult Emergenc yon 10-31-2022 Risk Screen - Adult Emergency Normal [facility] Triage - EDon 10-31-2022 Triage - ED Normal [facility] Established Visit (Orthopaed ic Surgery)on 09-16-2022 Established [...] Dr. Ayala This note was generated using GLO software. It may contain errors in wording, [...] more fall s in the last year -[facility] Work Phone: Tobacco use status CPHS b) No -[facility] Work Phone: [...] Anxiety; SHARLENE = N; [facility]; Last Updated By: Meghana [...] 09/15/2022 10:11:29 AM FA[facility]ED [facility] Hyperglycemia Comprehensive Metabolic Panel; Status:Active - Retrospective By Protocol Authorization; Requested for:[id number]; Perform:Lab Services - Lab To Draw (Blood Test); Due:15Mar2023; Last Updated By:Nedra Rivera; 09/15/2022 10:04:15 AM;Ordered; For:Hyperglycemia; Ordered By:Jeanie Ayala; Palpitation Cardiology - General Referral Evaluation and Treatment Evaluate AND Treat Status: Complete Done: 15Sep2022 Ordered;For: Palpitation; Ordered By: Jeanie Ayala Performed: Due: 14Dec2022; Last Updated By: Jimbo Mcmanus; 09/15/2022 10:18:12 AM 11-05-2021 AT 1115 WITH [facility] Patient Discussion/Summary F/U 3 MO CMP VALPORIC [...] OFF AND ON PALPITATIONS WANTS TO SEE SURVEYOR MINE FOR OFF AND ON RASH Scores and [...] thirst, n (more content not included)... Normal [employer] Tobacco Screening.on 022 Fall risk assessment a) No falls within the last year [facility] Work Phone: Tobacco use status CPHS b) No [facility] Work Phone: CHEST 2 VIEW PA AND LATon CHEST 2 VIEW PA AND LAT Normal [facility] CT C Spine without Contrasto n 08-24-2022 CT Cervical spine WO contrast Normal [facility] Work Phone: CT HEAD WO CONTRASTon 2021 CT HEAD WO CONTRAST Normal [facility] CT Head without Contraston 1 10-24-2021 CT Head limited WO contrast Normal [facility] Work Phone: Complete Blood Count + Diffe rentialon 08-24-2022 Basophils/100 WBC (Bld) 0.2 % 0.0 - 2.0 [facility] Work Phone: Erythrocyte distribution width (RBC) [Ratio] 12.8 % See Below [facility] Work Phone: Comment on above: Reference Range: 11. 5 - 14.5 Hematocrit (Bld) [Volume fraction] 39.1 % See Below [facility] Work Phone: Comment on above: Reference Range: 36. 0 - 46.0 Hemoglobin (Bld) [Mass/Vol] 13.1 g/dL See Below [facility] Work Phone: Comment on above: Reference Range: 12. 0 - 16.0 Lymphocytes/100 WBC (Bld) 22.3 % See Below [facility] Work Phone: Comment on above: Reference Range: 13. 0 - 44.0 MCHC (RBC) [Mass/Vol] 33.5 g/dL See Below [facility] Work Phone: Comment on above: Reference Range: 32. 0 - 36.0 MCV (RBC) [Entitic vol] 88 fL 80 - 100 [facility] Work Phone: Monocytes/100 WBC (Bld) 8.4 % 2.0 - 10.0 [facility] Work Phone: Neutrophils/100 WBC (Bld) 66.3 % See Below [facility] Work Phone: Comment on above: Reference Range: 40. 0 - 80.0 Platelets (Bld) [#/Vol] 118 10*3/uL below low threshold 150 - 450 [facility] Work Phone: Comment on above: no platelet clumps s een RBC (Bld) [#/Vol] 4.45 {x10E12/L} See Below [facility] Work Phone: Comment on above: Reference Range: 4.0 0 - 5.20 WBC (Bld) [#/Vol] 5.8 10*3/uL 4.4 - 11.3 [facility] Work Phone: Complete Blood Count + Differential 0.01 {x10E9/L} See Below [facility] Work Phone: Comment on above: Reference Range: 0.0 0 - 0.10 Complete Blood Count + Differential 0.11 {x10E9/L} See Below [facility] Work Phone: Comment on above: Reference Range: 0.0 0 - 0.70 Complete Blood Count + Differential 0.49 {x10E9/L} See Below [facility] Work Phone: Comment on above: Reference Range: 0.1 0 - 1.00 Complete Blood Count + Differential 1.30 {x10E9/L} See Below [facility] Work Phone: Comment on above: Reference Range: 1.2 0 - 4.80 Complete Blood Count + Differential 3.87 {x10E9/L} See Below [facility] Work Phone: Comment on above: Reference Range: 1.2 0 - 7.70 Percent differential counts (%) should be interpreted in the context of the absolute cell counts (cells/L). Complete Blood Count + Differential 1.9 % 0.0 - 6.0 [facility] Work Phone: Complete Blood Count + Differential 0.9 % 0.0 - 0.9 [facility] Work Phone: Comment on above: Immature Granulocyte Count (IG) includes promyelocytes, myelocytes and metamyelocytes but does not include bands. Percent differential counts (%) should be interpreted in the context of the absolute cell counts (cells/L). Laboratory - Chemistry and C hemistry - challengeon 08-24-2022 Albumin BCP dye [Mass/Vol] 4.0 g/dL 3.4 - 5.0 [facility] Work Phone: ALP [Catalytic activity/Vol] 63 U/L 33 - 110 [facility] Work Phone: ALT With P-5'-P [Catalytic activity/Vol] 23 U/L 7 - 45 [facility] Work Phone: Comment on above: Patients treated wit h Sulfasalazine may generate falsely decreased results for ALT. Anion gap [Moles/Vol] 12 mmol/L 10 - 20 [facility] Work Phone: AST With P-5'-P [Catalytic activity/Vol] 21 U/L 9 - 39 [facility] Work Phone: Bilirubin [Mass/Vol] 0.3 mg/dL 0.0 - 1.2 [facility] Work Phone: Calcium [Mass/Vol] 9.2 mg/dL 8.6 - 10.3 [facility] Work Phone: Chloride [Moles/Vol] 102 mmol/L 98 - 107 [facility] Work Phone: CO2 [Moles/Vol] 30 mmol/L 21 - 32 [facility] Work Phone: Creatinine [Mass/Vol] 1.30 mg/dL above high threshold See Below [facility] Work Phone: Comment on above: Reference Range: 0.5 0 - 1.05 Glucose [Mass/Vol] 108 mg/dL above high threshold 74 - 99 [facility] Work Phone: Potassium [Moles/Vol] 3.4 mmol/L below low threshold 3.5 - 5.3 [facility] Work Phone: Protein [Mass/Vol] 6.6 g/dL 6.4 - 8.2 [facility] Work Phone: Sodium [Moles/Vol] 141 mmol/L 136 - 145 [facility] Work Phone: Urea nitrogen [Mass/Vol] 21 mg/dL 6 - 23 [facility] Work Phone: Lorazepam Level, Serumon LORazepam [Mass/Vol] 26 ng/mL below low threshold 50-240 [facility] Work Phone: Comment on above: INTERPRETIVE INFORMA TION: LorazepamDose-Related Range:50-240 ng/mL - Dose (Adult): 1-10 mg/dToxic: Greater than 300 ng/mLAdverse effects may include respiratory depression, sedation, dizziness, weakness and lethargy.Performed By: [facility] [place] [id number] Director: Ismael Castellon MD, PhD No Panel Informationon 08-24 50 {mL/min/1.73m2} Abnormal >90 [facility] Work Phone: Comment on above: CALCULATIONS OF FRIEDA MATED GFR ARE PERFORMED USING THE 2020 CKD-EPI STUDY REFIT EQUATION WITHOUT THE RACE VARIABLE FOR THE IDMS-TRACEABLE CREATININE METHODS.https://jasn.asnjournals.org/content/early/ N.8987370478 Provider Note - ED v3on Provider Note - ED v3 Normal [facility] Radiologyon 08-24-2022 XR Chest 2 Views Normal -[facility] Work Phone: XR Shoulder 2 Views Normal -[facility] Work Phone: Risk Screen - Adult Emergenc yon 08-24-2022 Risk Screen - Adult Emergency Normal [facility] SHOULDER, CMPLT, MIN 2 VIEWS on 08-24-2022 SHOULDER, CMPLT, MIN 2 VIEWS Normal [facility] Triage - EDon 08-24-2022 Triage - ED Normal [facility] Uric Acid, Serumon Urate [Mass/Vol] 5.5 mg/dL 2.3 - 6.7 [facility] Internal Medicine Work Phone: Comment on above: Venipuncture immedia tely after or during the administration of Metamizole may lead to falsely low results. Testing should be performed immediately prior to Metamizole dosing. Valproic Acid Level, Serumon 08-24-2022 Valproate [Mass/Vol] 48 ug/mL below low threshold 50 - 100 [facility] Internal Medicine Work Phone: Established Visit (Orthopaed [...] her facility. This note was generated using GLO software. It may contain errors in wording, [...] a) No falls within the last year [facility] 300 Work Phone: Tobacco use status CP b) No [facility] 300 Work Phone: [...] ORDER IN PATIENT FOLDER SO BASIM AT [facility] CAN MAKE APPT WITH [employer]. APPARENTLY [employer] HAS A CONTRACT WITH [facility] AND COME TO PATIENT. Knee pain Renew: Diclofenac Sodium 1 % External Gel (Voltaren); apply sparingly to affected aea twice daily Rx By: Jeanei Ayala; Dispense: 0 Days ; #:1 X [...] excessive th (more content not included)... Normal [employer] Tobacco Screening.on 022 Fall risk assessment a) No falls within the last year [facility] Internal Medicine Work Phone: Tobacco use status [facility] b) No [facility] Internal Medicine Work Phone: AMB - Narrative Note-Distres s Screen Follow Upon 08-11-2022 AMB - Narrative Note-Distress Screen Follow Up [facility] AMB - Narrative Note-Distres s Screen Follow Upon 08-06-2022 AMB - Narrative Note-Distress Screen Follow Up [facility] Note - Education Adul ton 08-06-2022 Clinic Note - Education Adult [facility] Note - Heme Onc-Follo w Up [facility] 08-06-2022 Clinic Note - Heme Onc-Follow Up Visit [facility] Note - Intakeon 08-06 Clinic Note - Intake [facility] Note - Heme Onc-Follo w Up [facility] 07-28-2022 Clinic Note - Heme Onc-Follow Up Visit This report has been cancelled. Normal [facility] Complete Blood Count + Diffe rentialon 07-22-2022 Erythrocyte distribution width (RBC) [Ratio] 13.8 % See Below [facility] 300 Work Phone: Comment on above: Reference Range: 11. 5 - 14.5 Hematocrit (Bld) [Volume fraction] 39.0 % See Below [facility] Orthopedics and Sports [facility] 300 Work Phone: Comment on above: Reference Range: 36. 0 - 46.0 Hemoglobin (Bld) [Mass/Vol] 13.0 g/dL See Below [facility] 300 Work Phone: Comment on above: Reference Range: 12. 0 - 16.0 MCHC (RBC) [Mass/Vol] 33.4 g/dL See Below [facility] 300 Work Phone: Comment on above: Reference Range: 32. 0 - 36.0 MCV (RBC) [Entitic vol] 88 fL 80 - 100 [facility] 300 Work Phone: Platelets (Bld) [#/Vol] 106 10*3/uL below low threshold 150 - 450 [facility] 300 Work Phone: RBC (Bld) [#/Vol] 4.42 {x10E12/L} See Below [facility] 300 Work Phone: Comment on above: Reference Range: 4.0 0 - 5.20 WBC (Bld) [#/Vol] 5.4 10*3/uL 4.4 - 11.3 [facility] 300 Work Phone: Complete Blood Count + Differential SEE MANUAL DIFF [facility] 300 Work Phone: Complete Blood Count + Differential 0.1 {/100_WBC} [facility] 300 Work Phone: Laboratory - Chemistry and C hemistry - challengeon 07-22-2022 Albumin BCP dye [Mass/Vol] 3.8 g/dL 3.4 - 5.0 [facility] 300 Work Phone: ALP [Catalytic activity/Vol] 73 U/L 33 - 110 [facility] 300 Work Phone: ALT With P-5'-P [Catalytic activity/Vol] 17 U/L 7 - 45 [facility] 300 Work Phone: Comment on above: Patients treated wit h Sulfasalazine may generate falsely decreased results for ALT. Anion gap [Moles/Vol] 11 mmol/L 10 - 20 [facility] 300 Work Phone: AST With P-5'-P [Catalytic activity/Vol] 21 U/L 9 - 39 [facility] 300 Work Phone: Bilirubin [Mass/Vol] 0.3 mg/dL 0.0 - 1.2 [facility] 300 Work Phone: Calcium [Mass/Vol] 8.7 mg/dL 8.6 - 10.3 [facility] 300 Work Phone: Chloride [Moles/Vol] 101 mmol/L 98 - 107 [facility] 300 Work Phone: CO2 [Moles/Vol] 31 mmol/L 21 - 32 [facility] 300 Work Phone: Creatinine [Mass/Vol] 1.20 mg/dL above high threshold See Below [facility] 300 Work Phone: Comment on above: Reference Range: 0.5 0 - 1.05 Glucose [Mass/Vol] 110 mg/dL above high threshold 74 - 99 [facility] 300 Work Phone: Potassium [Moles/Vol] 3.9 mmol/L 3.5 - 5.3 [facility] 300 Work Phone: Protein [Mass/Vol] 5.9 g/dL below low threshold 6.4 - 8.2 [facility] 300 Work Phone: Sodium [Moles/Vol] 139 mmol/L 136 - 145 [facility] 300 Work Phone: Urea nitrogen [Mass/Vol] 26 mg/dL above high threshold 6 - 23 [facility] 300 Work Phone: Laboratory - Hematology and Cell countson 07-22-2022 Basophils/100 WBC (Bld) 0.0 % 0.0 - 2.0 [facility] 300 Work Phone: Lymphocytes/100 WBC (Bld) 35.0 % See Below [facility] 300 Work Phone: Comment on above: Reference Range: 13. 0 - 44.0 Monocytes/100 WBC (Bld) 5.0 % 2.0 - 10.0 [facility] 300 Work Phone: No Panel Informationon 07-22 NORMAL [facility] Orthopedics [facility] Sports [facility] 300 Work Phone: 0.00 {x10E9/L} See Below [facility] 300 Work Phone: Comment on above: Reference Range: 0.0 0 - 0.10 Reference Range: 0.0 0 - 0.70 0.27 {x10E9/L} See Below [facility] 300 Work Phone: Comment on above: Reference Range: 0.1 0 - 1.00 1.89 {x10E9/L} See Below [facility] 300 Work Phone: Comment on above: Reference Range: 1.2 0 - 4.80 3.24 {x10E9/L} See Below [facility] 300 Work Phone: Comment on above: Reference Range: 1.2 0 - 7.00 Reference Range: 1.2 0 - 7.70 0.0 % 0.0 - 6.0 [facility] 300 Work Phone: 60.0 % See Below [facility] 300 Work Phone: Comment on above: Reference Range: 40. 0 - 80.0 Percent differential counts (%) should be interpreted in the context of the absolute cell counts (cells/L). 56 {mL/min/1.73m2} Abnormal >90 [facility] 300 Work Phone: Comment on above: CALCULATIONS OF FRIEDA MATED GFR ARE PERFORMED USING THE 2020 CKD-EPI STUDY REFIT EQUATION WITHOUT THE RACE VARIABLE FOR THE IDMS-TRACEABLE CREATININE METHODS.https://jasn.asnjournals.org/content/early// N.0256075424 Office Visit (Internal Medic ine)on 07-21-2022 Follow-up [...] Transmission to [facility]; Last Updated By: [employer]; 07/21/2022 9:35:48 AM Generalized epilepsy Start: Clotrimazole-Betamethas one 1-0.05 % External Cream; APPLY AND RUB IN A THIN FILM TO AFFECTED AREAS TWICE DAILY.(AM AND PM) Rx By: Jeanie Ayala; Dispense: 0 Days ; #:1 X 45 GM Tube; Refill: 0;For: Generalized epilepsy; SHARLENE = N; Verified Transmission to [facility]; Last Updated By: Benny Qingdao [employer]; 07/21/2022 9:31:34 AM Start: Metoprolol Succinate ER [...] gait; Ordered By: Reanna Kemp Performed: Due: [id number]; Last Updated By: Cornelia Domingo; 07/21/2022 9:44:56 AM PRINTED ORDER AND PUT IN PATIENT FOLDER FOR [facility] Patient Discussion/Summary F/U 1 MO Provider Impressions [...] dizziness, n (more content not included)... Normal [employer] Tobacco Screening.on 022 Fall risk assessment a) No falls within the last year [facility] Internal Medicine Work Phone: Tobacco use status [facility] b) No [facility] Internal Medicine Work Phone: Initial Visit (Orthopaedic [...] of care. This note was generated using GLO software. It may contain errors in wording, punctuation or spelling. Provider Impressions History, symptoms and assessment consistent with bilateral knee pain, frequent falls and ataxic gait. Chief Complaint [employer] BILAT KNEE PAIN PT DOES NOT WALK [...] of blood (more content not included)... Normal [employer] Tobacco Screening.on 022 Fall risk assessment b) One or more fall s in the last year [facility] 300 Work Phone: Tobacco use status [facility] b) No [facility] 300 Work Phone: Cult, Urineon 07-12-2022 Bacteria identified Cx Nom (U) [facility] 300 Work Phone: Urinalysison 07-12-2022 Color (U) Straw See Below [facility] Work Phone: Comment on above: Reference Range: STR AW,YELLOW Glucose Ql (U) Negative NEGATIVE [facility] Internal Medicine Work Phone: Ketones Ql (U) Negative NEGATIVE [facility] Internal Medicine Work Phone: Leukocyte esterase Test strip Ql (U) Negative NEGATIVE [facility] Work Phone: pH (U) 6.0 [pH] 5.0 - 8.0 [facility] Work Phone: Protein (U) [Mass/Vol] Negative NEGATIVE [facility] Work Phone: RBC (U) [#/Vol] Negative NEGATIVE [facility] Internal Medicine Work Phone: Specific gravity (U) [Rel density] 1.009 1 See Below [facility] Work Phone: Comment on above: Reference Range: 1.0 05 - 1.035 Urinalysis Negative NEGATIVE [facility] Work Phone: Urinalysis <2.0 0.0 - 1.9 [facility] Work Phone: Urinalysis CLEAR CLEAR [facility] Work Phone: Falls Screening (Age 18+)on 06-30-2022 Fall risk assessment b) One or more fall s in the last year [facility] Work Phone: Tobacco use status [facility] b) No [facility] Work Phone: Office Visit (Internal Medic ine)on 06-30-2022 Follow-up visit Diagnoses/Problems Assessed Anxiety (300.00) (F41.9) Tinea (110.9) (B35.9) Knee pain (719.46) (M25.569) Tremor (781.0) (R25.1) Orders Anxiety Renew: LORazepam 1 MG Oral Tablet; TAKE 2 TABLET Twice daily Rx By: Jeanie Ayala; Dispense: 30 Days ; #:120 Tablet; Refill: 0;For: Anxiety; SHARLENE = N; Verified Transmission to [facility]; Last Updated By: [employer]; 06/30/2022 1:22:36 PM Knee pain Orthopedic - General Referral Evaluation and Treatment Evaluate AND Treat Status: Complete Done: 30Jun2022 Ordered;For: Knee pain; Ordered By: Jeanie Ayala Performed: Due: [id number]; Last Updated By: Jimbo Mcmanus; 06/30/2022 1:31:19 PM FRANCES LANGE 9-15 AT 145 Tinea Start: Clotrimazole-Betamethas one 1-0.05 % External Cream; APPLY AND RUB IN A THIN FILM TO AFFECTED AREAS TWICE DAILY.(AM AND PM) Rx By: Jeanie Ayala; Dispense: 0 Days ; #:1 X 15 GM Tube; Refill: 2;For: Tinea; SHARLENE = N; Verified Transmission to [facility]; Last Updated By: [employer]; 06/30/2022 1:22:41 PM Patient Discussion/Summary F/U 1 [...] Problems Abdo (more content not included)... Normal [employer] Tobacco Screening.on 022 Fall risk assessment a) No falls within the last year [facility] Internal Medicine Work Phone: Tobacco use status CP b) No [facility] Internal Medicine Work Phone: CT CERVICAL SPINE [...] on WedMay 06, 2022 7:48:57 PM EDT [facility] Comment on above: Order Comment: [...] on WedMay 06, 2022 7:44:58 PM EDT [facility] Comment on above: Order Comment: [...] of the lumbar spine. There are 5 [id number]-[id number] lumbar type vertebrae. There is appropriate alignment [...] on WedMay 06, 2022 8:07:27 PM EDT [facility] Comment on above: Order Comment: Injur y/Trauma or Illness?:Injury/Trauma How long have you had these symptoms (acute/chronic)?:Acute Reason for exam?:Fall, low back pain History of cancer?:n Surgeries, chemotherapy, or radiation?:yes Type of Exam?:Initial Mechanism of injury?:fall Tobacco Screening.on Fall risk assessment a) No falls within the last year [facility] Internal Medicine Work Phone: Tobacco use status [facility] b) No [facility] Internal Medicine Work Phone: Tobacco Screening.on Fall risk assessment a) No falls within the last year [facility] Internal Medicine Work Phone: Tobacco use status [facility] b) No [facility] Internal Medicine Work Phone: Mamm - Screening Mammogram w / Tomosynthesison 03-06-2022 MG Breast Screening Normal [facility] [address] [place] Work Phone: Radiologyon 03-06-2022 XR Knee 3 Views Please click on the link to view the study images Normal [facility] [address] Work Phone: Tobacco Screening.on Fall risk assessment b) One or more fall s in the last year [facility] Internal Medicine Work Phone: Tobacco use status [facility] b) No [facility] Work Phone: Tobacco Screening.on 022 Fall risk assessment b) One or more fall s in the last year [facility] Work Phone: Tobacco use status [facility] b) No [facility] Work Phone: Ammonia, Plasmaon 01-23-2022 Ammonia (P) [Moles/Vol] 22 umol/L [facility] Work Phone: Comment on above: .REFERENCE VALUESDAY 1 to DAY 7 <110DAY 8 to DAY 14 < 90DAY 15 to ADULT 16-53 Complete Blood Count + Diffe rentialon 01-23-2022 Basophils/100 WBC (Bld) 0.2 % 0.0 - 2.0 [facility] Work Phone: Erythrocyte distribution width (RBC) [Ratio] 13.7 % See Below [facility] Work Phone: Comment on above: Reference Range: 11. 5 - 14.5 Hematocrit (Bld) [Volume fraction] 40.3 % See Below [facility] Work Phone: Comment on above: Reference Range: 36. 0 - 46.0 Hemoglobin (Bld) [Mass/Vol] 13.5 g/dL See Below [facility] Work Phone: Comment on above: Reference Range: 12. 0 - 16.0 Lymphocytes/100 WBC (Bld) 26.0 % See Below [facility] Work Phone: Comment on above: Reference Range: 13. 0 - 44.0 MCHC (RBC) [Mass/Vol] 33.5 g/dL See Below [facility] Work Phone: Comment on above: Reference Range: 32. 0 - 36.0 MCV (RBC) [Entitic vol] 88 fL 80 - 100 [facility] Work Phone: Monocytes/100 WBC (Bld) 7.6 % 2.0 - 10.0 [facility] Work Phone: Neutrophils/100 WBC (Bld) 64.3 % See Below [facility] Work Phone: Comment on above: Reference Range: 40. 0 - 80.0 Platelets (Bld) [#/Vol] 113 10*3/uL below low threshold 150 - 450 [facility] Work Phone: RBC (Bld) [#/Vol] 4.58 {x10E12/L} See Below [facility] Work Phone: Comment on above: Reference Range: 4.0 0 - 5.20 WBC (Bld) [#/Vol] 5.4 10*3/uL 4.4 - 11.3 [facility] Work Phone: Complete Blood Count + Differential 0.00 {x10E9/L} See Below [facility] Work Phone: Comment on above: Reference Range: 0.0 0 - 0.10 Complete Blood Count + Differential 0.10 {x10E9/L} See Below [facility] Work Phone: Comment on above: Reference Range: 0.0 0 - 0.70 Complete Blood Count + Differential 0.40 {x10E9/L} See Below [facility] Work Phone: Comment on above: Reference Range: 0.1 0 - 1.00 Complete Blood Count + Differential 1.40 {x10E9/L} See Below [facility] Work Phone: Comment on above: Reference Range: 1.2 0 - 4.80 Complete Blood Count + Differential 3.50 {x10E9/L} See Below [facility] Work Phone: Comment on above: Reference Range: 1.2 0 - 7.70 Percent differential counts (%) should be interpreted in the context of the absolute cell counts (cells/L). Complete Blood Count + Differential 1.9 % 0.0 - 6.0 [facility] Work Phone: Complete Blood Count + Differential 0.2 {/100_WBC} [facility] Work Phone: Laboratory - Chemistry and C hemistry - challengeon 01-23-2022 Albumin BCP dye [Mass/Vol] 4.1 g/dL 3.4 - 5.0 [facility] Work Phone: ALP [Catalytic activity/Vol] 76 U/L 33 - 110 [facility] Work Phone: ALT With P-5'-P [Catalytic activity/Vol] 21 U/L 7 - 45 [facility] Work Phone: Comment on above: Patients treated wit h Sulfasalazine may generate falsely decreased results for ALT. Anion gap [Moles/Vol] 12 mmol/L 10 - 20 [facility] Work Phone: AST With P-5'-P [Catalytic activity/Vol] 23 U/L 9 - 39 [facility] Work Phone: Bilirubin [Mass/Vol] 0.4 mg/dL 0.0 - 1.2 [facility] Internal [facility] Work Phone: Calcium [Mass/Vol] 8.9 mg/dL 8.6 - 10.3 [facility] Work Phone: Chloride [Moles/Vol] 100 mmol/L 98 - 107 [facility] Work Phone: CO2 [Moles/Vol] 30 mmol/L 21 - 32 [facility] Internal Medicine Work Phone: Creatinine [Mass/Vol] 1.12 mg/dL above high threshold See Below [facility] Work Phone: Comment on above: Reference Range: 0.5 0 - 1.05 Glucose [Mass/Vol] 111 mg/dL above high threshold 74 - 99 [facility] Work Phone: Potassium [Moles/Vol] 3.5 mmol/L 3.5 - 5.3 [facility] Work Phone: Protein [Mass/Vol] 6.5 g/dL 6.4 - 8.2 [facility] Work Phone: Sodium [Moles/Vol] 138 mmol/L 136 - 145 [facility] Work Phone: Urea nitrogen [Mass/Vol] 17 mg/dL 6 - 23 [facility] Work Phone: No Panel Informationon 01-23 61 {mL/min/1.73m2} >90 [facility] Work Phone: Comment on above: CALCULATIONS OF FRIEDA MATED GFR ARE PERFORMED USING THE 2020 CKD-EPI STUDY REFIT EQUATION WITHOUT THE RACE VARIABLE FOR THE IDMS-TRACEABLE CREATININE METHODS.https://jasn.asnjournals.org/content/early/ N.8998044498 Valproic Acid Level, Serumon 01-23-2022 Valproate [Mass/Vol] 56 ug/mL 50 - 100 [facility] Work Phone: Vitamin B12, Serumon 022 Cobalamin (Vitamin B12) [Mass/Vol] 1085 pg/mL above high threshold 211 - 911 [facility] Work Phone: No Panel Informationon 01-22 [facility] Work Phone: [email or web address] ?={[email or web address] [email or web address]} [facility] Work Phone: [facility] Work Phone: Coronavirus 2019 RNA by PCR, Screening Asymptomticon 01-21-2022 Coronavirus 2019 RNA by PCR, Screening Asymptomtic Not detected Normal See Below [facility] Work Phone: Comment on above: SOURCE: [...] make patient management decisions.Fact sheet for providers: https://www.fda.gov/media/926110/downloadFact sheet for patients: https://www.fda.gov/media/066455/downloadThis test has received FDA Emergency Use Authorization (EUA) and has been verified by [facility] ([facility]). This test is only authorized for the duration of time that circumstances exist to justify the authorization of the emergency use of in vitro diagnostic tests for the detection of SARS-CoV-2 virus and/or diagnosis of COVID-19 infection under section 564(b)(1) of the Act, 21 U.S.C. 360bbb-3(b)(1), unless the authorization is terminated or revoked sooner. [facility] is certified under CLIA-88 as qualified to perform high complexity testing. Testing is performed in the [facility] laboratories located at [address] [place] [address]. Tobacco Screening.on 022 Adult depression screening assessment Yes [facility] Work Phone: Fall risk assessment a) No falls within the last year [facility] Medicine Work Phone: Tobacco use status [facility] b) No [facility] Medicine Work Phone: Tobacco Screening. 3-Nearly every day [facility] Internal Medicine Work Phone: Tobacco Screening. 2-More than half the days [facility] Medicine Work Phone: Tobacco Screening. 0-Not at all [facility] Internal Medicine Work Phone: Tobacco Screening. Extremely Difficult [facility] Internal Medicine Work Phone: Xray Bone Density, Dexa 1 or More Siteson 12-26-2021 DXA Bone [Mass/Area] Bone density Normal [facility] Work Phone: Laboratory - Chemistry and C hemistry - challengeon 12-25-2021 Albumin BCP dye [Mass/Vol] 4.0 g/dL 3.4 - 5.0 [facility] Work Phone: ALP [Catalytic activity/Vol] 62 U/L 33 - 110 [facility] Internal Medicine Work Phone: ALT With P-5'-P [Catalytic activity/Vol] 18 U/L 7 - 45 [facility] Work Phone: Comment on above: Patients treated wit h Sulfasalazine may generate falsely decreased results for ALT. Anion gap [Moles/Vol] 13 mmol/L 10 - 20 [facility] Work Phone: AST With P-5'-P [Catalytic activity/Vol] 21 U/L 9 - 39 [facility] Work Phone: Bilirubin [Mass/Vol] 0.4 mg/dL 0.0 - 1.2 [facility] Internal [facility] Work Phone: Calcium [Mass/Vol] 8.7 mg/dL 8.6 - 10.3 [facility] Work Phone: Chloride [Moles/Vol] 100 mmol/L 98 - 107 [facility] Internal Medicine Work Phone: CO2 [Moles/Vol] 28 mmol/L 21 - 32 [facility] Internal Medicine Work Phone: Creatinine [Mass/Vol] 1.19 mg/dL above high threshold See Below [facility] Work Phone: Comment on above: Reference Range: 0.5 0 - 1.05 Glucose [Mass/Vol] 88 mg/dL 74 - 99 [facility] Work Phone: Potassium [Moles/Vol] 4.0 mmol/L 3.5 - 5.3 [facility] Medicine Work Phone: Protein [Mass/Vol] 6.6 g/dL 6.4 - 8.2 [facility] Work Phone: Sodium [Moles/Vol] 137 mmol/L 136 - 145 [facility] Work Phone: Urea nitrogen [Mass/Vol] 23 mg/dL 6 - 23 [facility] Work Phone: NM Biliary with EF w/wo CCKo n 12-25-2021 NM Biliary with EF w/wo CCK Normal [facility] Work Phone: No Panel Informationon 12-25 56 {mL/min/1.73m2} Abnormal >90 [facility] Work Phone: Comment on above: CALCULATIONS OF FRIEDA MATED GFR ARE PERFORMED USING THE 2020 CKD-EPI STUDY REFIT EQUATION WITHOUT THE RACE VARIABLE FOR THE IDMS-TRACEABLE CREATININE METHODS.https://jasn.asnjournals.org/content/early// N.2788135096 Valproic Acid Level, Serumon 12-25-2021 Valproate [Mass/Vol] 50 ug/mL 50 - 100 [facility] Work Phone: Tobacco Screening.on 022 Fall risk assessment a) No falls within the last year [facility] Work Phone: Tobacco use status CPHS b) No [facility] Work Phone: Radiologyon 12-15-2021 US Liver Normal [facility] Work Phone: Complete Blood Count + Diffe rentialon 12-13-2021 Erythrocyte distribution width (RBC) [Ratio] 13.8 % See Below [facility] Work Phone: Comment on above: Reference Range: 11. 5 - 14.5 Hematocrit (Bld) [Volume fraction] 39.8 % See Below [facility] Work Phone: Comment on above: Reference Range: 36. 0 - 46.0 Hemoglobin (Bld) [Mass/Vol] 13.3 g/dL See Below [facility] Work Phone: Comment on above: Reference Range: 12. 0 - 16.0 MCHC (RBC) [Mass/Vol] 33.5 g/dL See Below [facility] Work Phone: Comment on above: Reference Range: 32. 0 - 36.0 MCV (RBC) [Entitic vol] 88 fL 80 - 100 [facility] Work Phone: Platelets (Bld) [#/Vol] 141 10*3/uL below low threshold 150 - 450 [facility] Work Phone: RBC (Bld) [#/Vol] 4.53 {x10E12/L} See Below [facility] Work Phone: Comment on above: Reference Range: 4.0 0 - 5.20 WBC (Bld) [#/Vol] 8.5 10*3/uL 4.4 - 11.3 [facility] Work Phone: Complete Blood Count + Differential SEE MANUAL DIFF [facility] Work Phone: Complete Blood Count + Differential 0.1 {/100_WBC} [facility] Work Phone: Laboratory - Chemistry and C hemistry - challengeon 12-13-2021 Albumin BCP dye [Mass/Vol] 4.3 g/dL 3.4 - 5.0 [facility] Work Phone: ALP [Catalytic activity/Vol] 65 U/L 33 - 110 [facility] Work Phone: ALT With P-5'-P [Catalytic activity/Vol] 23 U/L 7 - 45 [facility] Work Phone: Comment on above: Patients treated wit h Sulfasalazine may generate falsely decreased results for ALT. Anion gap [Moles/Vol] 17 mmol/L 10 - 20 [facility] Work Phone: AST With P-5'-P [Catalytic activity/Vol] 29 U/L 9 - 39 [facility] Work Phone: Bilirubin [Mass/Vol] 0.5 mg/dL 0.0 - 1.2 [facility] Work Phone: Calcium [Mass/Vol] 9.2 mg/dL 8.6 - 10.3 [facility] Work Phone: Chloride [Moles/Vol] 98 mmol/L 98 - 107 [facility] Work Phone: CO2 [Moles/Vol] 27 mmol/L 21 - 32 [facility] Work Phone: Creatinine [Mass/Vol] 1.25 mg/dL above high threshold See Below [facility] Work Phone: Comment on above: Reference Range: 0.5 0 - 1.05 Glucose [Mass/Vol] 121 mg/dL above high threshold 74 - 99 [facility] Work Phone: Potassium [Moles/Vol] 3.3 mmol/L below low threshold 3.5 - 5.3 [facility] Work Phone: Protein [Mass/Vol] 6.6 g/dL 6.4 - 8.2 [facility] Work Phone: Sodium [Moles/Vol] 139 mmol/L 136 - 145 [facility] Work Phone: Urea nitrogen [Mass/Vol] 22 mg/dL 6 - 23 [facility] Work Phone: Laboratory - Hematology and Cell countson 12-13-2021 Basophils/100 WBC (Bld) 0.0 % 0.0 - 2.0 [facility] Work Phone: Lymphocytes/100 WBC (Bld) 20.0 % See Below [facility] Work Phone: Comment on above: Reference Range: 13. 0 - 44.0 Monocytes/100 WBC (Bld) 2.0 % 2.0 - 10.0 [facility] Work Phone: No Panel Informationon 12-13 53 {mL/min/1.73m2} Abnormal >90 [facility] Medicine Work Phone: Comment on above: CALCULATIONS OF FRIEDA MATED GFR ARE PERFORMED USING THE 2020 CKD-EPI STUDY REFIT EQUATION WITHOUT THE RACE VARIABLE FOR THE IDMS-TRACEABLE CREATININE METHODS.https://jasn.asnjournals.org/content/early// N.0376359810 0.00 {x10E9/L} See Below [facility] Work Phone: Comment on above: Reference Range: 0.0 0 - 0.10 Reference Range: 0.0 0 - 0.70 0.17 {x10E9/L} See Below [facility] Work Phone: Comment on above: Reference Range: 0.1 0 - 1.00 1.70 {x10E9/L} See Below [facility] Work Phone: Comment on above: Reference Range: 1.2 0 - 4.80 6.63 {x10E9/L} See Below [facility] Work Phone: Comment on above: Reference Range: 1.2 0 - 7.00 Reference Range: 1.2 0 - 7.70 0.0 % 0.0 - 6.0 [facility] Work Phone: 78.0 % See Below [facility] Work Phone: Comment on above: Reference [...] more fall s in the last year [facility] Work Phone: Tobacco use status CPHS b) No [facility] Work Phone: Complete Blood Count + Diffdarrell garduno 12-05-2021 Basophils/100 WBC (Bld) 0.3 % 0.0 - 2.0 [facility] Work Phone: Erythrocyte distribution width (RBC) [Ratio] 13.6 % See Below [facility] Work Phone: Comment on above: Reference Range: 11. 5 - 14.5 Hematocrit (Bld) [Volume fraction] 37.3 % See Below [facility] Work Phone: Comment on above: Reference Range: 36. 0 - 46.0 Hemoglobin (Bld) [Mass/Vol] 12.4 g/dL See Below [facility] Work Phone: Comment on above: Reference Range: 12. 0 - 16.0 Lymphocytes/100 WBC (Bld) 18.4 % See Below [facility] Work Phone: Comment on above: Reference Range: 13. 0 - 44.0 MCHC (RBC) [Mass/Vol] 33.2 g/dL See Below [facility] Work Phone: Comment on above: Reference Range: 32. 0 - 36.0 MCV (RBC) [Entitic vol] 89 fL 80 - 100 [facility] Work Phone: Monocytes/100 WBC (Bld) 8.6 % 2.0 - 10.0 [facility] Work Phone: Neutrophils/100 WBC (Bld) 71.1 % See Below [facility] Work Phone: Comment on above: Reference Range: 40. 0 - 80.0 Platelets (Bld) [#/Vol] 111 10*3/uL below low threshold 150 - 450 [facility] Work Phone: RBC (Bld) [#/Vol] 4.18 {x10E12/L} See Below [facility] Work Phone: Comment on above: Reference Range: 4.0 0 - 5.20 WBC (Bld) [#/Vol] 5.4 10*3/uL 4.4 - 11.3 [facility] Work Phone: Complete Blood Count + Differential 0.00 {x10E9/L} See Below [facility] Work Phone: Comment on above: Reference Range: 0.0 0 - 0.10 Complete Blood Count + Differential 0.10 {x10E9/L} See Below [facility] Work Phone: Comment on above: Reference Range: 0.0 0 - 0.70 Complete Blood Count + Differential 0.50 {x10E9/L} See Below [facility] Work Phone: Comment on above: Reference Range: 0.1 0 - 1.00 Complete Blood Count + Differential 1.00 {x10E9/L} below low threshold See Below [facility] Work Phone: Comment on above: Reference Range: 1.2 0 - 4.80 Complete Blood Count + Differential 3.90 {x10E9/L} See Below [facility] Work Phone: Comment on above: Reference Range: 1.2 0 - 7.70 Percent differential counts (%) should be interpreted in the context of the absolute cell counts (cells/L). Complete Blood Count + Differential 1.6 % 0.0 - 6.0 [facility] Work Phone: Complete Blood Count + Differential 0.1 {/100_WBC} [facility] Work Phone: Laboratory - Chemistry and C hemistry - challengeon 12-05-2021 Albumin BCP dye [Mass/Vol] 3.9 g/dL 3.4 - 5.0 [facility] Work Phone: ALP [Catalytic activity/Vol] 68 U/L 33 - 110 [facility] Work Phone: ALT With P-5'-P [Catalytic activity/Vol] 15 U/L 7 - 45 [facility] Work Phone: Comment on above: Patients treated wit h Sulfasalazine may generate falsely decreased results for ALT. Anion gap [Moles/Vol] 14 mmol/L 10 - 20 [facility] Work Phone: AST With P-5'-P [Catalytic activity/Vol] 19 U/L 9 - 39 [facility] Work Phone: Bilirubin [Mass/Vol] 0.3 mg/dL 0.0 - 1.2 [facility] Work Phone: Calcium [Mass/Vol] 7.9 mg/dL below low threshold 8.6 - 10.3 [facility] Work Phone: Chloride [Moles/Vol] 101 mmol/L 98 - 107 [facility] Work Phone: CO2 [Moles/Vol] 26 mmol/L 21 - 32 [facility] Work Phone: Creatinine [Mass/Vol] 1.33 mg/dL above high threshold See Below [facility] Work Phone: Comment on above: Reference Range: 0.5 0 - 1.05 Glucose [Mass/Vol] 106 mg/dL above high threshold 74 - 99 [facility] Work Phone: Potassium [Moles/Vol] 3.1 mmol/L below low threshold 3.5 - 5.3 [facility] Work Phone: Protein [Mass/Vol] 6.1 g/dL below low threshold 6.4 - 8.2 [facility] Work Phone: Sodium [Moles/Vol] 138 mmol/L 136 - 145 [facility] Work Phone: Urea nitrogen [Mass/Vol] 18 mg/dL 6 - 23 [facility] Work Phone: Lactate, Levelon 12-05-2021 Lactate [Moles/Vol] 1.2 mmol/L 0.4 - 2.0 [facility] Internal [facility] Work Phone: Comment on above: Venipuncture immedia tely after or during the administration of Metamizole may lead to falsely low results. Testing should be performed immediately prior to Metamizole dosing. Lactate [Moles/Vol] 2.9 mmol/L above high threshold 0.4 - 2.0 [facility] Work Phone: Comment on above: Venipuncture immedia tely after or during the administration of Metamizole may lead to falsely low results. Testing should be performed immediately prior to Metamizole dosing. Lipase, Serumon 12-05-2021 Lipase [Catalytic activity/Vol] 42 U/L 9 - 82 [facility] Work Phone: Comment on above: Venipuncture immedia tely after or during the administration of Metamizole may lead to falsely low results. Testing should be performed immediately prior to Metamizole dosing. Q-qsbvaz-i-benzoquinone imine (metabolite of Acetaminophen) will generate erroneously low results in samples for patients that have taken toxic doses of acetaminophen. No Panel Informationon 12-05 49 {mL/min/1.73m2} Abnormal >90 [facility] Work Phone: Comment on above: CALCULATIONS OF FRIEDA MATED GFR ARE PERFORMED USING THE 2020 CKD-EPI STUDY REFIT EQUATION WITHOUT THE RACE VARIABLE FOR THE IDMS-TRACEABLE CREATININE METHODS.https://jasn.asnjournals.org/content/early// N.0428303548 URINALYSIS WITH CULTURE IF I NDICATEDon 12-05-2021 Color (U) Straw See Below [facility] Work Phone: Comment on above: Reference Range: STR AW,YELLOW Glucose Ql (U) Negative NEGATIVE [facility] Work Phone: Ketones Ql (U) Negative NEGATIVE [facility] Work Phone: Leukocyte esterase Test strip Ql (U) Negative NEGATIVE [facility] Work Phone: pH (U) 7.0 [pH] 5.0 - 8.0 [facility] Work Phone: Protein (U) [Mass/Vol] Negative NEGATIVE [facility] Work Phone: RBC (U) [#/Vol] Negative NEGATIVE [facility] Work Phone: Specific gravity (U) [Rel density] 1.010 1 See Below [facility] Work Phone: Comment on above: Reference Range: 1.0 05 - 1.035 URINALYSIS WITH CULTURE IF INDICATED Negative NEGATIVE [facility] Work Phone: URINALYSIS WITH CULTURE IF INDICATED <2.0 0.0 - 1.9 [facility] Work Phone: URINALYSIS WITH CULTURE IF INDICATED CLEAR CLEAR [facility] Work Phone: Tobacco Screening.on 022 Fall risk assessment a) No falls within the last year [facility] Work Phone: Tobacco use status CP b) No [facility] Work Phone: CT C Spine without Contrasto n 11-27-2021 CT Cervical spine WO contrast Normal [facility] Work Phone: CT Head without Contraston 0 11-27-2021 CT Head limited WO contrast Normal [facility] Work Phone: CT T Spine without Contrasto n 11-27-2021 CT Thoracic spine WO contrast Normal [facility] Work Phone: Complete Blood Count + Diffe rentialon 11-27-2021 Basophils/100 WBC (Bld) 0.4 % 0.0 - 2.0 [facility] Work Phone: Erythrocyte distribution width (RBC) [Ratio] 13.6 % See Below [facility] Work Phone: Comment on above: Reference Range: 11. 5 - 14.5 Hematocrit (Bld) [Volume fraction] 38.5 % See Below [facility] Work Phone: Comment on above: Reference Range: 36. 0 - 46.0 Hemoglobin (Bld) [Mass/Vol] 12.9 g/dL See Below [facility] Work Phone: Comment on above: Reference Range: 12. 0 - 16.0 Lymphocytes/100 WBC (Bld) 15.5 % See Below [facility] Work Phone: Comment on above: Reference Range: 13. 0 - 44.0 MCHC (RBC) [Mass/Vol] 33.5 g/dL See Below [facility] Work Phone: Comment on above: Reference Range: 32. 0 - 36.0 MCV (RBC) [Entitic vol] 88 fL 80 - 100 [facility] Work Phone: Monocytes/100 WBC (Bld) 7.4 % 2.0 - 10.0 [facility] Work Phone: Neutrophils/100 WBC (Bld) 74.6 % See Below [facility] Work Phone: Comment on above: Reference Range: 40. 0 - 80.0 Platelets (Bld) [#/Vol] 113 10*3/uL below low threshold 150 - 450 [facility] Work Phone: RBC (Bld) [#/Vol] 4.35 {x10E12/L} See Below [facility] Work Phone: Comment on above: Reference Range: 4.0 0 - 5.20 WBC (Bld) [#/Vol] 5.3 10*3/uL 4.4 - 11.3 [facility] Work Phone: Complete Blood Count + Differential 0.00 {x10E9/L} See Below [facility] Work Phone: Comment on above: Reference Range: 0.0 0 - 0.10 Complete Blood Count + Differential 0.10 {x10E9/L} See Below [facility] Work Phone: Comment on above: Reference Range: 0.0 0 - 0.70 Complete Blood Count + Differential 0.40 {x10E9/L} See Below [facility] Work Phone: Comment on above: Reference Range: 0.1 0 - 1.00 Complete Blood Count + Differential 0.80 {x10E9/L} below low threshold See Below [facility] Work Phone: Comment on above: Reference Range: 1.2 0 - 4.80 Complete Blood Count + Differential 4.00 {x10E9/L} See Below [facility] Work Phone: Comment on above: Reference Range: 1.2 0 - 7.70 Percent differential counts (%) should be interpreted in the context of the absolute cell counts (cells/L). Complete Blood Count + Differential 2.1 % 0.0 - 6.0 [facility] Work Phone: Complete Blood Count + Differential 0.1 {/100_WBC} [facility] Work Phone: Cult, Urineon 11-27-2021 Bacteria identified Cx Nom (U) Abnormal [facility] Work Phone: Laboratory - Chemistry and C hemistry - challengeon 11-27-2021 Albumin BCP dye [Mass/Vol] 3.9 g/dL 3.4 - 5.0 [facility] Work Phone: ALP [Catalytic activity/Vol] 69 U/L 33 - 110 [facility] Internal [facility] Work Phone: ALT With P-5'-P [Catalytic activity/Vol] 17 U/L 7 - 45 [facility] Work Phone: Comment on above: Patients treated wit h Sulfasalazine may generate falsely decreased results for ALT. Anion gap [Moles/Vol] 12 mmol/L 10 - 20 [facility] Work Phone: AST With P-5'-P [Catalytic activity/Vol] 19 U/L 9 - 39 [facility] Work Phone: Bilirubin [Mass/Vol] 0.4 mg/dL 0.0 - 1.2 [facility] Internal [facility] Work Phone: Calcium [Mass/Vol] 8.4 mg/dL below low threshold 8.6 - 10.3 [facility] Work Phone: Chloride [Moles/Vol] 98 mmol/L 98 - 107 [facility] Internal [facility] Work Phone: CO2 [Moles/Vol] 28 mmol/L 21 - 32 [facility] Internal [facility] Work Phone: Creatinine [Mass/Vol] 1.15 mg/dL above high threshold See Below [facility] Work Phone: Comment on above: Reference Range: 0.5 0 - 1.05 Glucose [Mass/Vol] 127 mg/dL above high threshold 74 - 99 [facility] Work Phone: Potassium [Moles/Vol] 3.2 mmol/L below low threshold 3.5 - 5.3 [facility] Work Phone: Protein [Mass/Vol] 6.3 g/dL below low threshold 6.4 - 8.2 [facility] Work Phone: Sodium [Moles/Vol] 135 mmol/L below low threshold 136 - 145 [facility] Work Phone: Urea nitrogen [Mass/Vol] 16 mg/dL 6 - 23 [facility] Work Phone: No Panel Informationon 11-27 59 {mL/min/1.73m2} Abnormal >90 [facility] Work Phone: Comment on above: CALCULATIONS OF FRIEDA MATED GFR ARE PERFORMED USING THE 2020 CKD-EPI STUDY REFIT EQUATION WITHOUT THE RACE VARIABLE FOR THE IDMS-TRACEABLE CREATININE METHODS.https://jasn.asnjournals.org/content/early// N.5644338671 http://UHMUSEPRDAIO0 1:8 080/jose francisco/museweb .dll?RetrieveTestByDate Time?BftziojAO=[id number] 0&Date=07-19-2022&Time= 19%3a12%3a03%3a00&TestT ype=ECG&Site=14&OutputT ype=PDF&Ext=PDF [facility] Work Phone: Please see physicia n note for formal interpretation confirmed by Scribe [facility] Work Phone: Normal [facility] Work Phone: [phone] [facility] Work Phone: [phone] [facility] Work Phone: [phone] [facility] Work Phone: [phone] [facility] Work Phone: [phone] [facility] Work Phone: [phone] [facility] Work Phone: [phone] [facility] Work Phone: [phone] [facility] Work Phone: [phone] [facility] Work Phone: [phone] [facility] Work Phone: [phone] [facility] Work Phone: [phone] [facility] Work Phone: [phone] [facility] Work Phone: [phone] [facility] Work Phone: Troponin I, Serumon 11-27-19 22 Troponin I.cardiac [Mass/Vol] ng/mL See Below [facility] Work Phone: Comment on [...] is performed using different testing methodology at [facility] than at [facility]. Direct result comparisons should only be made within the same method. URINALYSIS WITH CULTURE IF I NDICATEDon 11-27-2021 Color (U) Yellow See Below [facility] Work Phone: Comment on above: Reference Range: STR AW,YELLOW Glucose Ql (U) Negative NEGATIVE [facility] Work Phone: Ketones Ql (U) Negative NEGATIVE [facility] Work Phone: Leukocyte esterase Test strip Ql (U) TRACE Abnormal NEGATIVE [facility] Work Phone: pH (U) 6.0 [pH] 5.0 - 8.0 [facility] Work Phone: Protein (U) [Mass/Vol] Negative NEGATIVE [facility] Work Phone: RBC (U) [#/Vol] Negative NEGATIVE [facility] Internal [facility] Work Phone: Specific gravity (U) [Rel density] 1.014 1 See Below [facility] Work Phone: Comment on above: Reference Range: 1.0 05 - 1.035 URINALYSIS WITH CULTURE IF INDICATED Negative NEGATIVE [facility] Work Phone: URINALYSIS WITH CULTURE IF INDICATED <2.0 0.0 - 1.9 [facility] Work Phone: URINALYSIS WITH CULTURE IF INDICATED HAZY CLEAR [facility] Work Phone: Urinalysis, Microscopicon Hyaline casts LM Ql (Urine sed) 1+ Abnormal [facility] Work Phone: Urinalysis, Microscopic 1+ Abnormal [facility] Work Phone: Urinalysis, Microscopic 19 {/HPF} [facility] Work Phone: Urinalysis, Microscopic 1 {/HPF} 0-5 [facility] Work Phone: Urinalysis, Microscopic 2 {/HPF} 0-5 [facility] Work Phone: Ammonia, Plasmaon 11-04-2021 Ammonia (P) [Moles/Vol] 15 umol/L Abnormal [facility] Work Phone: Comment on above: .REFERENCE VALUESDAY 1 to DAY 7 <110DAY 8 to DAY 14 < 90DAY 15 to ADULT 16-53 Complete Blood Count + Diffe rentialon 11-04-2021 Basophils/100 WBC (Bld) 1.2 % 0.0 - 2.0 [facility] Work Phone: Erythrocyte distribution width (RBC) [Ratio] 13.3 % See Below [facility] Work Phone: Comment on above: Reference Range: 11. 5 - 14.5 Hematocrit (Bld) [Volume fraction] 40.2 % See Below [facility] Work Phone: Comment on above: Reference Range: 36. 0 - 46.0 Hemoglobin (Bld) [Mass/Vol] 13.5 g/dL See Below [facility] Work Phone: Comment on above: Reference Range: 12. 0 - 16.0 Lymphocytes/100 WBC (Bld) 25.3 % See Below [facility] Work Phone: Comment on above: Reference Range: 13. 0 - 44.0 MCHC (RBC) [Mass/Vol] 33.5 g/dL See Below [facility] Work Phone: Comment on above: Reference Range: 32. 0 - 36.0 MCV (RBC) [Entitic vol] 89 fL 80 - 100 [facility] Work Phone: Monocytes/100 WBC (Bld) 6.5 % 2.0 - 10.0 [facility] Work Phone: Neutrophils/100 WBC (Bld) 65.5 % See Below [facility] Work Phone: Comment on above: Reference Range: 40. 0 - 80.0 Platelets (Bld) [#/Vol] 119 10*3/uL below low threshold 150 - 450 [facility] Work Phone: RBC (Bld) [#/Vol] 4.52 {x10E12/L} See Below [facility] Work Phone: Comment on above: Reference Range: 4.0 0 - 5.20 WBC (Bld) [#/Vol] 5.8 10*3/uL 4.4 - 11.3 [facility] Work Phone: Complete Blood Count + Differential 0.10 {x10E9/L} See Below [facility] Work Phone: Comment on above: Reference Range: 0.0 0 - 0.10 Reference Range: 0.0 0 - 0.70 Complete Blood Count + Differential 0.40 {x10E9/L} See Below [facility] Work Phone: Comment on above: Reference Range: 0.1 0 - 1.00 Complete Blood Count + Differential 1.50 {x10E9/L} See Below [facility] Work Phone: Comment on above: Reference Range: 1.2 0 - 4.80 Complete Blood Count + Differential 3.80 {x10E9/L} See Below [facility] Work Phone: Comment on above: Reference Range: 1.2 0 - 7.70 Percent differential counts (%) should be interpreted in the context of the absolute cell counts (cells/L). Complete Blood Count + Differential 1.5 % 0.0 - 6.0 [facility] Work Phone: Complete Blood Count + Differential 0.1 {/100_WBC} [facility] Work Phone: Narciso Bernsteinon 11-04-2021 levETIRAcetam [Mass/Vol] 28 ug/mL 10 - 40 [facility] Work Phone: Comment on above: Brivaracetam may fal sely increase the amount of levetiracetam measured by this method. Serum levels should be confirmed by a valid chromatographic method for patients with these drugs co-present in circulation. Laboratory - Chemistry and C hemistry - challengeon 11-04-2021 Albumin BCP dye [Mass/Vol] 4.2 g/dL 3.4 - 5.0 [facility] Work Phone: ALP [Catalytic activity/Vol] 66 U/L 33 - 110 [facility] Work Phone: ALT With P-5'-P [Catalytic activity/Vol] 16 U/L 7 - 45 [facility] Work Phone: Comment on above: Patients treated wit h Sulfasalazine may generate falsely decreased results for ALT. Anion gap [Moles/Vol] 12 mmol/L 10 - 20 [facility] Work Phone: AST With P-5'-P [Catalytic activity/Vol] 23 U/L 9 - 39 [facility] Work Phone: Bilirubin [Mass/Vol] 0.4 mg/dL 0.0 - 1.2 [facility] Work Phone: Calcium [Mass/Vol] 9.3 mg/dL 8.6 - 10.3 [facility] Work Phone: Chloride [Moles/Vol] 97 mmol/L below low threshold 98 - 107 [facility] Work Phone: CO2 [Moles/Vol] 33 mmol/L above high threshold 21 - 32 [facility] Work Phone: Creatinine [Mass/Vol] 1.20 mg/dL above high threshold See Below [facility] Work Phone: Comment on above: Reference Range: 0.5 0 - 1.05 Glucose [Mass/Vol] 96 mg/dL 74 - 99 [facility] Work Phone: Potassium [Moles/Vol] 3.6 mmol/L 3.5 - 5.3 [facility] Work Phone: Protein [Mass/Vol] 6.5 g/dL 6.4 - 8.2 [facility] Work Phone: Sodium [Moles/Vol] 138 mmol/L 136 - 145 [facility] Work Phone: Urea nitrogen [Mass/Vol] 16 mg/dL 6 - 23 [facility] Work Phone: Laboratory - Drug toxicology on 11-04-2021 Amphetamines Screen Ql (U) Negative NEGATIVE [facility] Work Phone: Comment on above: CUTOFF LEVEL: 500 NG /ML Cross-reactivity has been reported with high concentrations of the following drugs: buproprion, chloroquine, chlorpromazine, ephedrine, mephentermine, fenfluramine, phentermine, phenylpropanolamine, pseudoephedrine, and propranolol. Barbiturates Screen Ql (U) Positive Abnormal NEGATIVE [facility] Work Phone: Comment on above: CUTOFF LEVEL: 200 NG /ML Benzodiazepines Ql (U) Negative NEGATIVE [facility] Work Phone: Comment on above: CUTOFF LEVEL: 200 NG /ML Benzoylecgonine Screen Ql (U) Negative NEGATIVE [facility] Work Phone: Comment on above: CUTOFF LEVEL: 150 NG /ML Butalbital (U) [Mass/Vol] <50 [facility] Work Phone: Comment on above: INTERPRETIVE INFORMA [...] developed and its performance characteristics determined by [employer]. It has not been cleared or approved by the [place] Food and Drug Administration. This test was performed in a CLIA certified laboratory and is intended for clinical purposes. Cannabinoids Screen Ql (U) Negative NEGATIVE [facility] Medicine Work Phone: Comment on above: CUTOFF LEVEL: 50 NG/ ML Methadone Screen Ql (U) Negative NEGATIVE [facility] Work Phone: Comment on above: CUTOFF LEVEL: 150 NG /ML The metabolite S-ovgii-axuxtzncjqnxka (LAAM) is not detected by this method in concentrations that would be found in the urine of patients on LAAM therapy. Opiates Screen Ql (U) Negative NEGATIVE [facility] Work Phone: Comment on above: CUTOFF LEVEL: 300 NG /ML The opiate screen does not detect fentanyl, meperidine, or tramadol. Oxycodone is not consistently detected (refer to Oxycodone Screen, Urine result). oxyCODONE+oxyMORphone Screen Ql (U) Negative NEGATIVE [facility] Work Phone: Comment on above: CUTOFF LEVEL: 100 NG /ML This test will accurately detect both oxycodone and oxymorphone. PENTobarbital (U) [Mass/Vol] <50 [facility] Medicine Work Phone: Comment on above: Performed By: JASPER Jean-Baptiste [address] [id number] Director: Lizet Hart MD Phencyclidine Ql (U) Negative NEGATIVE [facility] Medicine Work Phone: Comment on above: CUTOFF LEVEL: 25 NG/ ML Cross-reactivity has been reported with dextromethorphan. PHENobarbital (U) [Mass/Vol] 2063 ng/mL [facility] Internal [facility] Work Phone: Magnesium, Serumon 2 Magnesium [Mass/Vol] 1.64 mg/dL See Below -[facility] Internal [facility] Work Phone: Comment on above: Reference Range: 1.6 0 - 2.40 No Panel Informationon 11-04 Negative NEGATIVE [facility] Work Phone: Comment on above: CUTOFF LEVEL: 1 NG/M L The performance characteristics of this test have been determined by the individual laboratory site where testing is performed. This test has not been cleared or approved by the FDA; however, the FDA has determined that such clearance is not necessary. SEE BELOW [facility] Work Phone: Comment on above: Drug screen [...] laboratory medical directors. 56 {mL/min/1.73m2} Abnormal >90 [facility] Work Phone: Comment on above: CALCULATIONS OF FRIEDA MATED GFR ARE PERFORMED USING THE 2020 CKD-EPI STUDY REFIT EQUATION WITHOUT THE RACE VARIABLE FOR THE IDMS-TRACEABLE CREATININE METHODS.https://jasn.asnjournals.org/content/early// N.4646334088 3.1 ug/mL below low threshold See Below [facility] Work Phone: Comment on above: Reference Range: 10. 0 - 40.0 Reference ranges and high/low indicator flags are provided as general guidelines only. The treating physician must determine appropriate target levels/dosing based on the specific clinical situation. 6.2 ug/mL 5.0 - 10.0 [facility] Work Phone: Comment on above: Reference ranges and high/low indicator flags are provided as general guidelines only. The treating physician must determine appropriate target levels/dosing based on the specific clinical situation. This test was developed and its performance characteristics determined by [facility] [place] ([facility]). It has not been cleared or approved by the FDA. [facility] is regulated under CLIA as qualified to perform high complexity testing. This test should not be regarded as investigational or for research. Tobacco Screening.on 022 Fall risk assessment b) One or more fall s in the last year [facility] Work Phone: Tobacco use status CPHS b) No [facility] Work Phone: Valproic Acid Level, Serumon 11-04-2021 Valproate [Mass/Vol] 57 ug/mL 50 - 100 [facility] Medicine Work Phone: Cult, Urineon 10-27-2021 Bacteria identified Cx Nom (U) [facility] Work Phone: Urinalysison 10-27-2021 Color (U) Yellow See Below [facility] Work Phone: Comment on above: Reference Range: STR AW,YELLOW Glucose Ql (U) Negative NEGATIVE [facility] Medicine Work Phone: Ketones Ql (U) Negative NEGATIVE [facility] Work Phone: Leukocyte esterase Test strip Ql (U) Negative NEGATIVE [facility] Work Phone: pH (U) 5.0 [pH] 5.0 - 8.0 [facility] Work Phone: Protein (U) [Mass/Vol] Negative NEGATIVE [facility] Work Phone: RBC (U) [#/Vol] Negative NEGATIVE [facility] Work Phone: Specific gravity (U) [Rel density] 1.015 1 See Below [facility] Work Phone: Comment on above: Reference Range: 1.0 05 - 1.035 Urinalysis Negative NEGATIVE [facility] Work Phone: Urinalysis <2.0 0.0 - 1.9 [facility] Work Phone: Urinalysis CLEAR CLEAR [facility] Work Phone: Complete Blood Count + Diffe rentialon 10-01-2021 Basophils/100 WBC (Bld) 0.2 % 0.0 - 2.0 [facility] Work Phone: Erythrocyte distribution width (RBC) [Ratio] 13.3 % See Below [facility] Work Phone: Comment on above: Reference Range: 11. 5 - 14.5 Hematocrit (Bld) [Volume fraction] 38.7 % See Below [facility] Work Phone: Comment on above: Reference Range: 36. 0 - 46.0 Hemoglobin (Bld) [Mass/Vol] 13.0 g/dL See Below [facility] Work Phone: Comment on above: Reference Range: 12. 0 - 16.0 Lymphocytes/100 WBC (Bld) 25.3 % See Below [facility] Work Phone: Comment on above: Reference Range: 13. 0 - 44.0 MCHC (RBC) [Mass/Vol] 33.5 g/dL See Below [facility] Work Phone: Comment on above: Reference Range: 32. 0 - 36.0 MCV (RBC) [Entitic vol] 90 fL 80 - 100 [facility] Work Phone: Monocytes/100 WBC (Bld) 8.1 % 2.0 - 10.0 [facility] Work Phone: Neutrophils/100 WBC (Bld) 64.2 % See Below [facility] Work Phone: Comment on above: Reference Range: 40. 0 - 80.0 Platelets (Bld) [#/Vol] 111 10*3/uL below low threshold 150 - 450 [facility] Work Phone: RBC (Bld) [#/Vol] 4.30 {x10E12/L} See Below [facility] Work Phone: Comment on above: Reference Range: 4.0 0 - 5.20 WBC (Bld) [#/Vol] 5.9 10*3/uL 4.4 - 11.3 [facility] Work Phone: Complete Blood Count + Differential 0.00 {x10E9/L} See Below [facility] Work Phone: Comment on above: Reference Range: 0.0 0 - 0.10 Complete Blood Count + Differential 0.10 {x10E9/L} See Below [facility] Work Phone: Comment on above: Reference Range: 0.0 0 - 0.70 Complete Blood Count + Differential 0.50 {x10E9/L} See Below [facility] Work Phone: Comment on above: Reference Range: 0.1 0 - 1.00 Complete Blood Count + Differential 1.50 {x10E9/L} See Below [facility] Work Phone: Comment on above: Reference Range: 1.2 0 - 4.80 Complete Blood Count + Differential 3.80 {x10E9/L} See Below [facility] Work Phone: Comment on above: Reference Range: 1.2 0 - 7.70 Percent differential counts (%) should be interpreted in the context of the absolute cell counts (cells/L). Complete Blood Count + Differential 2.2 % 0.0 - 6.0 [facility] Work Phone: Complete Blood Count + Differential 0.1 {/100_WBC} [facility] Work Phone: Laboratory - Chemistry and C hemistry - challengeon 10-01-2021 Albumin BCP dye [Mass/Vol] 3.8 g/dL 3.4 - 5.0 [facility] Work Phone: ALP [Catalytic activity/Vol] 67 U/L 33 - 110 [facility] Work Phone: ALT With P-5'-P [Catalytic activity/Vol] 16 U/L 7 - 45 [facility] Work Phone: Comment on above: Patients treated wit h Sulfasalazine may generate falsely decreased results for ALT. Anion gap [Moles/Vol] 9 mmol/L below low threshold 10 - 20 [facility] Work Phone: AST With P-5'-P [Catalytic activity/Vol] 18 U/L 9 - 39 [facility] Work Phone: Bilirubin [Mass/Vol] 0.3 mg/dL 0.0 - 1.2 [facility] Work Phone: Calcium [Mass/Vol] 8.7 mg/dL 8.6 - 10.3 [facility] Work Phone: Chloride [Moles/Vol] 99 mmol/L 98 - 107 [facility] Work Phone: CO2 [Moles/Vol] 33 mmol/L above high threshold 21 - 32 [facility] Work Phone: Creatinine [Mass/Vol] 0.98 mg/dL See Below [facility] Work Phone: Comment on above: Reference Range: 0.5 0 - 1.05 Glucose [Mass/Vol] 98 mg/dL 74 - 99 [facility] Work Phone: Potassium [Moles/Vol] 3.4 mmol/L below low threshold 3.5 - 5.3 [facility] Work Phone: Protein [Mass/Vol] 5.8 g/dL below low threshold 6.4 - 8.2 [facility] Work Phone: Sodium [Moles/Vol] 138 mmol/L 136 - 145 [facility] Work Phone: Urea nitrogen [Mass/Vol] 18 mg/dL 6 - 23 [facility] Work Phone: No Panel Informationon 10-01 >60 >60 [facility] Work Phone: Comment on above: CALCULATIONS OF FRIEDA MATED GFR ARE PERFORMED USING THE MDRD STUDY EQUATION FOR THE IDMS-TRACEABLE CREATININE METHODS. CLIN CHEM 2007;53:766-72 Vitamin B12, Serumon 021 Cobalamin (Vitamin B12) [Mass/Vol] 598 pg/mL 211 - 911 [facility] Work Phone: Falls Risk Screeningon 08-12 Fall risk assessment b) One or more fall s in the last year [facility] Work Phone: Tobacco use status CPHS b) No [facility] Work Phone: Complete Blood Count + Diffe rentialon 08-05-2021 Basophils/100 WBC (Bld) 0.2 % 0.0 - 2.0 [facility] Work Phone: Erythrocyte distribution width (RBC) [Ratio] 13.1 % See Below [facility] Work Phone: Comment on above: Reference Range: 11. 5 - 14.5 Hematocrit (Bld) [Volume fraction] 42.6 % See Below [facility] Work Phone: Comment on above: Reference Range: 36. 0 - 46.0 Hemoglobin (Bld) [Mass/Vol] 14.2 g/dL See Below [facility] Work Phone: Comment on above: Reference Range: 12. 0 - 16.0 Lymphocytes/100 WBC (Bld) 30.9 % See Below [facility] Work Phone: Comment on above: Reference Range: 13. 0 - 44.0 MCHC (RBC) [Mass/Vol] 33.3 g/dL See Below [facility] Work Phone: Comment on above: Reference Range: 32. 0 - 36.0 MCV (RBC) [Entitic vol] 90 fL 80 - 100 [facility] Work Phone: Monocytes/100 WBC (Bld) 6.0 % 2.0 - 10.0 [facility] Work Phone: Neutrophils/100 WBC (Bld) 61.0 % See Below [facility] Work Phone: Comment on above: Reference Range: 40. 0 - 80.0 Platelets (Bld) [#/Vol] 117 10*3/uL below low threshold 150 - 450 [facility] Work Phone: RBC (Bld) [#/Vol] 4.72 {x10E12/L} See Below [facility] Work Phone: Comment on above: Reference Range: 4.0 0 - 5.20 WBC (Bld) [#/Vol] 5.2 10*3/uL 4.4 - 11.3 [facility] Work Phone: Complete Blood Count + Differential 0.00 {x10E9/L} See Below [facility] Work Phone: Comment on above: Reference Range: 0.0 0 - 0.10 Complete Blood Count + Differential 0.10 {x10E9/L} See Below [facility] Work Phone: Comment on above: Reference Range: 0.0 0 - 0.70 Complete Blood Count + Differential 0.30 {x10E9/L} See Below [facility] Work Phone: Comment on above: Reference Range: 0.1 0 - 1.00 Complete Blood Count + Differential 1.60 {x10E9/L} See Below [facility] Work Phone: Comment on above: Reference Range: 1.2 0 - 4.80 Complete Blood Count + Differential 3.20 {x10E9/L} See Below [facility] Work Phone: Comment on above: Reference Range: 1.2 0 - 7.70 Percent differential counts (%) should be interpreted in the context of the absolute cell counts (cells/L). Complete Blood Count + Differential 1.9 % 0.0 - 6.0 [facility] Work Phone: Complete Blood Count + Differential 0.1 {/100_WBC} [facility] Work Phone: Hemoglobin A1Con 08-05-2021 Glucose [Mass/Vol] 103 mg/dL [facility] Work Phone: HbA1c (Bld) [Mass fraction] 5.2 % [facility] Work Phone: Comment on above: Diagnosis of Diabete s-Adults Non-Diabetic: < or = 5.6% Increased risk for developing diabetes: 5.7-6.4% Diagnostic of diabetes: > or = 6.5%. Monitoring of Diabetes Age (y) Therapeutic Goal (%) Adults: >18 <7.0 Pediatrics: 13-18 <7.5 7-12 <8.0 0- 6 7.5-8.5 [employer]. Diabetes Care 33(S1), Oct 2009. Laboratory - Chemistry and C hemistry - challengeon 08-05-2021 Albumin BCP dye [Mass/Vol] 4.0 g/dL 3.4 - 5.0 [facility] Work Phone: ALP [Catalytic activity/Vol] 61 U/L 33 - 110 [facility] Work Phone: ALT With P-5'-P [Catalytic activity/Vol] 19 U/L 7 - 45 [facility] Work Phone: Comment on above: Patients treated wit h Sulfasalazine may generate falsely decreased results for ALT. Anion gap [Moles/Vol] 11 mmol/L 10 - 20 [facility] Work Phone: AST With P-5'-P [Catalytic activity/Vol] 27 U/L 9 - 39 [facility] Work Phone: Bilirubin [Mass/Vol] 0.4 mg/dL 0.0 - 1.2 [facility] Work Phone: Calcium [Mass/Vol] 8.3 mg/dL below low threshold 8.6 - 10.3 [facility] Work Phone: Chloride [Moles/Vol] 99 mmol/L 98 - 107 [facility] Work Phone: CO2 [Moles/Vol] 30 mmol/L 21 - 32 [facility] Work Phone: Creatinine [Mass/Vol] 1.10 mg/dL above high threshold See Below [facility] Work Phone: Comment on above: Reference Range: 0.5 0 - 1.05 Glucose [Mass/Vol] 86 mg/dL 74 - 99 [facility] Work Phone: Potassium [Moles/Vol] 3.4 mmol/L below low threshold 3.5 - 5.3 [facility] Work Phone: Protein [Mass/Vol] 6.1 g/dL below low threshold 6.4 - 8.2 [facility] Work Phone: Sodium [Moles/Vol] 137 mmol/L 136 - 145 [facility] Work Phone: Urea nitrogen [Mass/Vol] 14 mg/dL 6 - 23 [facility] Work Phone: Lipid Panelon 08-05-2021 Cholesterol [Mass/Vol] 180 mg/dL 0 - 199 [facility] Work Phone: Comment on above: . AGE [...] dosing. Cholesterol in HDL [Mass/Vol] 40.0 mg/dL [facility] Work Phone: Comment on above: . AGE VERY LOW LOW N ORMAL HIGH 0-19 Y < 35 < 40 40-45 ---- 20- 24 Y ---- < 40 >45 ---- >24 Y ---- < 40 40-60 >60. Cholesterol in LDL [Mass/Vol] 103 mg/dL above high threshold 0 - 99 [facility] Work Phone: Comment on above: . NEAR BORD AGE MARIZOL RABLE OPTIMAL HIGH HIGH VERY HIGH 0-19 Y 0 - 109 --- 110-129 >/= 130 ---- 20-24 Y 0 - 119 --- 120-159 >/= 160 ---- >24 Y 0 - 99 100-129 130-159 160-189 >/=190. Cholesterol.total/Cho lesterol in HDL [Mass ratio] 4.5 {ratio} [facility] Work Phone: Comment on above: REF VALUESDESIRABLE < 3.4HIGH RISK > 5.0 Triglyceride [Mass/Vol] 184 mg/dL above high threshold 0 - 149 [facility] Work Phone: Comment on above: . AGE [...] Lipid Panel 37 mg/dL 0 - 40 [facility] Work Phone: No Panel Informationon 08-05 64 {mL/min/1.73m2} >60 [facility] Work Phone: Comment on above: CALCULATIONS OF FRIEDA MATED GFR ARE PERFORMED USING THE MDRD STUDY EQUATION FOR THE IDMS-TRACEABLE CREATININE METHODS. CLIN CHEM 2007;53:766-72 53 {mL/min/1.73m2} Abnormal >60 [facility] Work Phone: Uric Acid, Serumon Urate [Mass/Vol] 4.1 mg/dL 2.3 - 6.7 [facility] Work Phone: Comment on above: Venipuncture immedia tely after or during the administration of Metamizole may lead to falsely low results. Testing should be performed immediately prior to Metamizole dosing. Valproic Acid Level, Serumon 08-05-2021 Valproate [Mass/Vol] 67 ug/mL 50 - 100 [facility] Medicine Work Phone: Tobacco Screening.on 021 Fall risk assessment b) One or more fall s in the last year [facility] Work Phone: Tobacco use status CPHS b) No [facility] Internal [facility] Work Phone: CT C Spine without Contrasto n 07-10-2021 CT Cervical spine WO contrast Normal [facility] [address] [place] Work Phone: CT Facial Boneson 07-10-2021 CT Facial bones Normal [facility] [address] [place] Work Phone: CT Head without Contraston 0 07-10-2021 CT Head limited WO contrast Normal [facility] [address] [place] Work Phone: Radiologyon 07-10-2021 XR Knee 4 Views Normal [facility] [address] [place] Work Phone: No Panel Informationon 07-07 Normal [facility] [address] [employer] Work Phone: Please click on the link to view the study images Normal [facility] [address] [employer] Work Phone: Cult, Genitalon 07-01-2021 Bacteria identified Aer cx Nom (Genital specimen) [facility] and [address] [employer] Work Phone: Cult, Urineon 07-01-2021 Bacteria identified Cx Nom (U) [facility] Work Phone: Tobacco Screening.on 021 Fall risk assessment a) No falls within the last year [facility] Medicine Work Phone: Tobacco use status [facility] b) No [facility] Work Phone: Tobacco Screening.on 021 Fall risk assessment b) One or more fall s in the last year [facility] Work Phone: Tobacco use status [facility] b) No [facility] Work Phone: Laboratory - Chemistry and C hemistry - challengeon 05-18-2021 Anion gap [Moles/Vol] 10 mmol/L 10 - 20 [facility] Work Phone: Calcium [Mass/Vol] 7.5 mg/dL below low threshold 8.6 - 10.3 [facility] Work Phone: Chloride [Moles/Vol] 104 mmol/L 98 - 107 [facility] Work Phone: CO2 [Moles/Vol] 25 mmol/L 21 - 32 [facility] Medicine Work Phone: Creatinine [Mass/Vol] 1.03 mg/dL See Below [facility] Work Phone: Comment on above: Reference Range: 0.5 0 - 1.05 Glucose [Mass/Vol] 118 mg/dL above high threshold 74 - 99 [facility] Work Phone: Potassium [Moles/Vol] 3.4 mmol/L below low threshold 3.5 - 5.3 [facility] Work Phone: Sodium [Moles/Vol] 136 mmol/L 136 - 145 [facility] Internal [facility] Work Phone: Urea nitrogen [Mass/Vol] 13 mg/dL 6 - 23 [facility] Work Phone: Anion gap [Moles/Vol] 25 mmol/L above high threshold 10 - 20 [facility] Work Phone: Calcium [Mass/Vol] 8.9 mg/dL 8.6 - 10.3 [facility] Work Phone: Chloride [Moles/Vol] 95 mmol/L below low threshold 98 - 107 [facility] Work Phone: CO2 [Moles/Vol] 18 mmol/L below low threshold 21 - 32 [facility] Work Phone: Creatinine [Mass/Vol] 1.42 mg/dL above high threshold See Below [facility] Work Phone: Comment on above: Reference Range: 0.5 0 - 1.05 Glucose [Mass/Vol] 145 mg/dL above high threshold 74 - 99 [facility] Work Phone: Potassium [Moles/Vol] 2.9 mmol/L Critically low 3.5 - 5.3 [facility] Work Phone: Comment on above: Called- RB to Zenaida Naranjo, 05/18/2021 04:40 Sodium [Moles/Vol] 135 mmol/L below low threshold 136 - 145 [facility] Work Phone: Urea nitrogen [Mass/Vol] 14 mg/dL 6 - 23 [facility] Work Phone: Laboratory - Hematology and Cell countson 05-18-2021 Erythrocyte distribution width (RBC) [Ratio] 14.0 % See Below [facility] Work Phone: Comment on above: Reference Range: 11. 5 - 14.5 Hematocrit (Bld) [Volume fraction] 41.2 % See Below [facility] Work Phone: Comment on above: Reference Range: 36. 0 - 46.0 Hemoglobin (Bld) [Mass/Vol] 13.7 g/dL See Below [facility] Work Phone: Comment on above: Reference Range: 12. 0 - 16.0 MCHC (RBC) [Mass/Vol] 33.3 g/dL See Below [facility] Work Phone: Comment on above: Reference Range: 32. 0 - 36.0 MCV (RBC) [Entitic vol] 92 fL 80 - 100 [facility] Work Phone: Platelets (Bld) [#/Vol] 132 10*3/uL below low threshold 150 - 450 [facility] Work Phone: RBC (Bld) [#/Vol] 4.47 {x10E12/L} See Below [facility] Work Phone: Comment on above: Reference Range: 4.0 0 - 5.20 WBC (Bld) [#/Vol] 8.3 10*3/uL 4.4 - 11.3 [facility] Work Phone: Lactate, Levelon 05-18-2021 Lactate [Moles/Vol] 0.6 mmol/L 0.4 - 2.0 [facility] Internal [facility] Work Phone: Comment on above: Venipuncture immedia tely after or during the administration of Metamizole may lead to falsely low results. Testing should be performed immediately prior to Metamizole dosing. Lactate [Moles/Vol] 10.3 mmol/L Critically high 0.4 - 2.0 [facility] Work Phone: Comment on above: Venipuncture immedia tely after or during the administration of Metamizole may lead to falsely low results. Testing should be performed immediately prior to Metamizole dosing. Called- RB to Zenaida Zuñiga , 05/18/2021 05:36 No Panel Informationon 05-18 69 {mL/min/1.73m2} >60 [facility] Work Phone: Comment on above: CALCULATIONS OF FRIEDA MATED GFR ARE PERFORMED USING THE MDRD STUDY EQUATION FOR THE IDMS-TRACEABLE CREATININE METHODS. CLIN CHEM 2007;53:766-72 57 {mL/min/1.73m2} Abnormal >60 [facility] Work Phone: 48 {mL/min/1.73m2} Abnormal >60 [facility] Work Phone: Comment on above: CALCULATIONS OF FRIEDA MATED GFR ARE PERFORMED USING THE MDRD STUDY EQUATION FOR THE IDMS-TRACEABLE CREATININE METHODS. CLIN CHEM 2007;53:766-72 40 {mL/min/1.73m2} Abnormal >60 [facility] Work Phone: CT Head without Contraston 0 05-15-2021 CT Head limited WO contrast Normal [facility] Work Phone: Complete Blood Count + Diffe rentialon 05-15-2021 Erythrocyte distribution width (RBC) [Ratio] 14.2 % See Below [facility] Work Phone: Comment on above: Reference Range: 11. 5 - 14.5 Hematocrit (Bld) [Volume fraction] 38.3 % See Below [facility] Work Phone: Comment on above: Reference Range: 36. 0 - 46.0 Hemoglobin (Bld) [Mass/Vol] 12.5 g/dL See Below [facility] Work Phone: Comment on above: Reference Range: 12. 0 - 16.0 MCHC (RBC) [Mass/Vol] 32.7 g/dL See Below [facility] Work Phone: Comment on above: Reference Range: 32. 0 - 36.0 MCV (RBC) [Entitic vol] 92 fL 80 - 100 [facility] Work Phone: Platelets (Bld) [#/Vol] 116 10*3/uL below low threshold 150 - 450 [facility] Work Phone: RBC (Bld) [#/Vol] 4.16 {x10E12/L} See Below [facility] Work Phone: Comment on above: Reference Range: 4.0 0 - 5.20 WBC (Bld) [#/Vol] 5.8 10*3/uL 4.4 - 11.3 [facility] Work Phone: Complete Blood Count + Differential SEE MANUAL DIFF [facility] Work Phone: Laboratory - Chemistry and C hemistry - challengeon 05-15-2021 Anion gap [Moles/Vol] 9 mmol/L below low threshold 10 - 20 [facility] Work Phone: Calcium [Mass/Vol] 8.3 mg/dL below low threshold 8.6 - 10.3 [facility] Work Phone: Chloride [Moles/Vol] 104 mmol/L 98 - 107 [facility] Internal [facility] Work Phone: CO2 [Moles/Vol] 29 mmol/L 21 - 32 [facility] Internal [facility] Work Phone: Creatinine [Mass/Vol] 1.07 mg/dL above high threshold See Below [facility] Work Phone: Comment on above: Reference Range: 0.5 0 - 1.05 Glucose [Mass/Vol] 95 mg/dL 74 - 99 [facility] Work Phone: Potassium [Moles/Vol] 3.9 mmol/L 3.5 - 5.3 [facility] Work Phone: Sodium [Moles/Vol] 138 mmol/L 136 - 145 [facility] Work Phone: Urea nitrogen [Mass/Vol] 13 mg/dL 6 - 23 [facility] Work Phone: Laboratory - Hematology and Cell countson 05-15-2021 Basophils/100 WBC (Bld) 0.0 % 0.0 - 2.0 [facility] Work Phone: Lymphocytes/100 WBC (Bld) 16.0 % See Below [facility] Work Phone: Comment on above: Reference Range: 13. 0 - 44.0 Monocytes/100 WBC (Bld) 1.0 % 2.0 - 10.0 [facility] Work Phone: No Panel Informationon 05-15 0.00 {x10E9/L} See Below [facility] Medicine Work Phone: Comment on above: Reference Range: 0.0 0 - 0.10 0.06 {x10E9/L} below low threshold See Below [facility] Work Phone: Comment on above: Reference Range: 0.0 0 - 0.70 Reference Range: 0.1 0 - 1.00 0.93 {x10E9/L} below low threshold See Below [facility] Work Phone: Comment on above: Reference Range: 1.2 0 - 4.80 4.76 {x10E9/L} See Below [facility] Work Phone: Comment on above: Reference Range: 1.2 0 - 7.00 Reference Range: 1.2 0 - 7.70 1.0 % 0.0 - 6.0 [facility] Work Phone: 82.0 % See Below [facility] Work Phone: Comment on above: Reference Range: 40. 0 - 80.0 Percent differential counts (%) should be interpreted in the context of the absolute cell counts (cells/L). NORMAL [facility] Work Phone: 67 {mL/min/1.73m2} >60 [facility] Work Phone: Comment on above: CALCULATIONS OF FRIEDA MATED GFR ARE PERFORMED USING THE MDRD STUDY EQUATION FOR THE IDMS-TRACEABLE CREATININE METHODS. CLIN CHEM 2007;53:766-72 55 {mL/min/1.73m2} Abnormal >60 [facility] Work Phone: URINALYSIS WITH CULTURE IF I NDICATEDon 05-15-2021 Color (U) Yellow See Below [facility] Work Phone: Comment on above: Reference Range: STR AW,YELLOW Glucose Ql (U) Negative NEGATIVE [facility] Work Phone: Ketones Ql (U) Negative NEGATIVE [facility] Work Phone: Leukocyte esterase Test strip Ql (U) Negative NEGATIVE [facility] Work Phone: pH (U) 7.0 [pH] 5.0 - 8.0 [facility] Work Phone: Protein (U) [Mass/Vol] Negative NEGATIVE [facility] Work Phone: RBC (U) [#/Vol] Negative NEGATIVE [facility] Work Phone: Specific gravity (U) [Rel density] 1.011 1 See Below [facility] Work Phone: Comment on above: Reference Range: 1.0 05 - 1.035 URINALYSIS WITH CULTURE IF INDICATED Negative NEGATIVE [facility] Work Phone: URINALYSIS WITH CULTURE IF INDICATED <2.0 0.0 - 1.9 [facility] Work Phone: URINALYSIS WITH CULTURE IF INDICATED CLEAR CLEAR [facility] Work Phone: Complete Blood Count + Diffe rentialon 05-14-2021 Basophils/100 WBC (Bld) 0.3 % 0.0 - 2.0 [facility] Work Phone: Erythrocyte distribution width (RBC) [Ratio] 14.2 % See Below [facility] Work Phone: Comment on above: Reference Range: 11. 5 - 14.5 Hematocrit (Bld) [Volume fraction] 39.9 % See Below [facility] Work Phone: Comment on above: Reference Range: 36. 0 - 46.0 Hemoglobin (Bld) [Mass/Vol] 13.2 g/dL See Below [facility] Work Phone: Comment on above: Reference Range: 12. 0 - 16.0 Lymphocytes/100 WBC (Bld) 22.2 % See Below [facility] Work Phone: Comment on above: Reference Range: 13. 0 - 44.0 MCHC (RBC) [Mass/Vol] 33.0 g/dL See Below [facility] Work Phone: Comment on above: Reference Range: 32. 0 - 36.0 MCV (RBC) [Entitic vol] 92 fL 80 - 100 [facility] Work Phone: Monocytes/100 WBC (Bld) 7.5 % 2.0 - 10.0 [facility] Work Phone: Neutrophils/100 WBC (Bld) 68.4 % See Below [facility] Work Phone: Comment on above: Reference Range: 40. 0 - 80.0 Platelets (Bld) [#/Vol] 108 10*3/uL below low threshold 150 - 450 [facility] Work Phone: RBC (Bld) [#/Vol] 4.36 {x10E12/L} See Below [facility] Work Phone: Comment on above: Reference Range: 4.0 0 - 5.20 WBC (Bld) [#/Vol] 5.8 10*3/uL 4.4 - 11.3 [facility] Work Phone: Complete Blood Count + Differential 0.00 {x10E9/L} See Below [facility] Work Phone: Comment on above: Reference Range: 0.0 0 - 0.10 Complete Blood Count + Differential 0.10 {x10E9/L} See Below [facility] Work Phone: Comment on above: Reference Range: 0.0 0 - 0.70 Complete Blood Count + Differential 0.40 {x10E9/L} See Below [facility] Work Phone: Comment on above: Reference Range: 0.1 0 - 1.00 Complete Blood Count + Differential 1.30 {x10E9/L} See Below [facility] Work Phone: Comment on above: Reference Range: 1.2 0 - 4.80 Complete Blood Count + Differential 4.00 {x10E9/L} See Below [facility] Work Phone: Comment on above: Reference Range: 1.2 0 - 7.70 Percent differential counts (%) should be interpreted in the context of the absolute cell counts (cells/L). Complete Blood Count + Differential 1.6 % 0.0 - 6.0 [facility] Work Phone: Complete Blood Count + Differential 0.3 {/100_WBC} [facility] Work Phone: Laboratory - Chemistry and C hemistry - challengeon 05-14-2021 Albumin BCP dye [Mass/Vol] 3.9 g/dL 3.4 - 5.0 [facility] Work Phone: ALP [Catalytic activity/Vol] 69 U/L 33 - 110 [facility] Work Phone: ALT With P-5'-P [Catalytic activity/Vol] 12 U/L 7 - 45 [facility] Work Phone: Comment on above: Patients treated wit h Sulfasalazine may generate falsely decreased results for ALT. Anion gap [Moles/Vol] 11 mmol/L 10 - 20 [facility] Work Phone: AST With P-5'-P [Catalytic activity/Vol] 18 U/L 9 - 39 [facility] Work Phone: Bilirubin [Mass/Vol] 0.3 mg/dL 0.0 - 1.2 [facility] Internal [facility] Work Phone: Calcium [Mass/Vol] 8.9 mg/dL 8.6 - 10.3 [facility] Medicine Work Phone: Chloride [Moles/Vol] 101 mmol/L 98 - 107 [facility] Work Phone: CO2 [Moles/Vol] 30 mmol/L 21 - 32 [facility] Medicine Work Phone: Creatinine [Mass/Vol] 1.18 mg/dL above high threshold See Below [facility] Work Phone: Comment on above: Reference Range: 0.5 0 - 1.05 Glucose [Mass/Vol] 95 mg/dL 74 - 99 [facility] Work Phone: Potassium [Moles/Vol] 3.8 mmol/L 3.5 - 5.3 [facility] Work Phone: Protein [Mass/Vol] 5.9 g/dL below low threshold 6.4 - 8.2 [facility] Work Phone: Sodium [Moles/Vol] 138 mmol/L 136 - 145 [facility] Work Phone: Urea nitrogen [Mass/Vol] 16 mg/dL 6 - 23 [facility] Work Phone: No Panel Informationon 05-14 220 {ng/mL_FEU} < or = 500 [facility] Medicine Work Phone: Comment [...] PE exclusion.) 59 {mL/min/1.73m2} Abnormal >60 [facility] Work Phone: Comment on above: CALCULATIONS OF FRIEDA MATED GFR ARE PERFORMED USING THE MDRD STUDY EQUATION FOR THE IDMS-TRACEABLE CREATININE METHODS. CLIN CHEM 2007;53:766-72 49 {mL/min/1.73m2} Abnormal >60 [facility] Work Phone: Radiologyon 05-14-2021 XR Chest Single view Normal [facility] Work Phone: Troponin I, Serumon 05-14-20 Troponin I.cardiac [Mass/Vol] ng/mL See Below [facility] Work Phone: Comment on [...] is performed using different testing methodology at [facility] than at other [facility]. Direct result comparisons should only be made within the same method. Troponin I.cardiac [Mass/Vol] ng/mL See Below [facility] Internal [facility] Work Phone: Comment on above: [...] is performed using different testing methodology at [facility] than at other [facility]. Direct result comparisons should only be made within the same method. Laboratory - Chemistry and C hemistry - challengeon 04-08-2021 Creatinine (Body fld) [Mass/Vol] 117.1 mg/dL [facility] Internal [facility] Work Phone: Comment on above: A urine creatinine r esult >= 20 mg/dL is considered valid without suspicion of dilution. Samples with results below this range will automatically reflex to specific gravity testing to verify specimen integrity. Laboratory - Drug toxicology on 04-08-2021 1-Hydroxymidazolam Confirm (U) [Mass/Vol] <25 Cutoff <25 [facility] Work Phone: 0-Vekooqjcun-0,5-Dime thyl-3,3-Diphenylpyrr olidine (EDDP) Confirm (U) [Mass/Vol] <25 Cutoff <25 [facility] Work Phone: Comment on above: The [...] ([id number]) Confirm (U) [Mass/Vol] <25 Cutoff <25 [facility] Work Phone: 7-Aminoclonazepam Confirm (U) [Mass/Vol] <25 Cutoff <25 [facility] Internal [facility] Work Phone: Alpha hydroxyalprazolam Confirm (U) [Mass/Vol] <25 Cutoff <25 [facility] Work Phone: ALPRAZolam Confirm (U) [Mass/Vol] <25 Cutoff <25 [facility] Internal [facility] Work Phone: Amobarbital (U) [Mass/Vol] <50 [facility] Medicine Work Phone: Amphetamines Screen Ql (U) Negative NEGATIVE [facility] Internal [facility] Work Phone: Comment on above: CUTOFF LEVEL: 500 NG /ML Cross-reactivity has been reported with high concentrations of the following drugs: buproprion, chloroquine, chlorpromazine, ephedrine, mephentermine, fenfluramine, phentermine, phenylpropanolamine, pseudoephedrine, and propranolol. Barbiturates Screen Ql (U) Positive Abnormal NEGATIVE [facility] Work Phone: Comment on above: CUTOFF LEVEL: 200 NG /ML Benzoylecgonine Screen Ql (U) Negative NEGATIVE [facility] Work Phone: Comment on above: CUTOFF LEVEL: 150 NG /ML Butalbital (U) [Mass/Vol] <50 [facility] Work Phone: Comment on above: INTERPRETIVE INFORMA [...] developed and its performance characteristics determined by [employer]. It has not been cleared or approved by the [place] Food and Drug Administration. This test was performed in a CLIA certified laboratory and is intended for clinical purposes. Cannabinoids Screen Ql (U) Negative NEGATIVE [facility] Work Phone: Comment on above: CUTOFF LEVEL: 50 NG/ ML chlordiazePOXIDE Confirm (U) [Mass/Vol] <25 Cutoff <25 [facility] Work Phone: clonazePAM Confirm (U) [Mass/Vol] <25 Cutoff <25 [facility] Work Phone: Codeine Confirm (U) [Mass/Vol] <50 Cutoff <50 [facility] Work Phone: diazePAM Confirm (U) [Mass/Vol] <25 Cutoff <25 [facility] Work Phone: fentaNYL Confirm (U) [Mass/Vol] <2.5 Cutoff<2.5 [facility] Work Phone: HYDROcodone Confirm (U) [Mass/Vol] <25 Cutoff <25 -[facility] Work Phone: HYDROmorphone Confirm (U) [Mass/Vol] <25 Cutoff <25 [facility] Work Phone: LORazepam Confirm (U) [Mass/Vol] >1000 Abnormal Cutoff <25 -[facility] Internal [facility] Work Phone: Comment on above: Consistent with use of a drug containing lorazepam, such as Ativan. Methadone Confirm (U) [Mass/Vol] <25 Cutoff <25 -[facility] Work Phone: Midazolam Confirm (U) [Mass/Vol] <25 Cutoff <25 -[facility] Internal [facility] Work Phone: Morphine Confirm (U) [Mass/Vol] <50 Cutoff <50 [facility] Internal [facility] Work Phone: Nordiazepam Confirm (U) [Mass/Vol] <25 Cutoff <25 -[facility] Internal [facility] Work Phone: Norfentanyl Confirm (U) [Mass/Vol] <2.5 Cutoff<2.5 [facility] Internal [facility] Work Phone: Comment on above: The performance [...] Norhydrocodone Confirm (U) [Mass/Vol] <25 Cutoff <25 [facility] Work Phone: Noroxycodone Confirm (U) [Mass/Vol] <25 Cutoff <25 [facility] Internal [facility] Work Phone: Nortramadol (U) [Mass/Vol] <50 Cutoff <50 [facility] Work Phone: Comment on above: The performance [...] Confirm (U) [Mass/Vol] <25 Cutoff <25 [facility] Work Phone: oxyCODONE Confirm (U) [Mass/Vol] <25 Cutoff <25 [facility] Work Phone: oxyMORphone Confirm (U) [Mass/Vol] <25 [facility] Work Phone: Comment on above: The performance [...] laboratory testing. PENTobarbital (U) [Mass/Vol] <50 [facility] Work Phone: Phencyclidine Ql (U) Negative NEGATIVE [facility] Work Phone: Comment on above: CUTOFF LEVEL: 25 NG/ ML Cross-reactivity has been reported with dextromethorphan. PHENobarbital (U) [Mass/Vol] 2544 ng/mL [facility] Work Phone: Secobarbital (U) [Mass/Vol] <50 [facility] Work Phone: Comment on above: Performed By: JASPER [id number] [place] [id number] Director: Lizet Hart MD Temazepam Confirm (U) [Mass/Vol] <25 Cutoff <25 [facility] Work Phone: Comment [...] traMADol Confirm (U) [Mass/Vol] <50 Cutoff <50 [facility] Work Phone: Zolpidem (U) [Mass/Vol] <25 Cutoff <25 [facility] Internal [facility] Work Phone: No Panel Informationon 04-08 <25 Cutoff <25 [facility] Internal [facility] Work Phone: Comment on above: The performance [...] high complexity clinical laboratory testing. SEE BELOW [facility] Work Phone: Comment on above: Drug screen [...] more fall s in the last year [facility] Internal [facility] Work Phone: Tobacco use status CPHS b) No [facility] Work Phone: Complete Blood Count + Diffe rentialon 01-14-2021 Basophils (Bld) [#/Vol] 0.00 {x10E9/L} See Below [facility] Work Phone: Comment on above: Reference Range: 0.0 0 - 0.10 Basophils/100 WBC (Bld) 0.1 % 0.0 - 2.0 [facility] Work Phone: Eosinophils (Bld) [#/Vol] 0.10 {x10E9/L} See Below [facility] Work Phone: Comment on above: Reference Range: 0.0 0 - 0.70 Eosinophils/100 WBC (Bld) 2.1 % 0.0 - 6.0 [facility] Work Phone: Erythrocyte distribution width (RBC) [Ratio] 13.6 % See Below [facility] Work Phone: Comment on above: Reference Range: 11. 5 - 14.5 Hematocrit (Bld) [Volume fraction] 40.2 % See Below [facility] Work Phone: Comment on above: Reference Range: 36. 0 - 46.0 Hemoglobin (Bld) [Mass/Vol] 13.3 g/dL See Below [facility] Work Phone: Comment on above: Reference Range: 12. 0 - 16.0 Lymphocytes (Bld) [#/Vol] 1.60 {x10E9/L} See Below [facility] Work Phone: Comment on above: Reference Range: 1.2 0 - 4.80 Lymphocytes/100 WBC (Bld) 27.9 % See Below [facility] Work Phone: Comment on above: Reference Range: 13. 0 - 44.0 MCHC (RBC) [Mass/Vol] 33.1 g/dL See Below [facility] Work Phone: Comment on above: Reference Range: 32. 0 - 36.0 MCV (RBC) [Entitic vol] 91 fL 80 - 100 [facility] Work Phone: Monocytes (Bld) [#/Vol] 0.40 {x10E9/L} See Below [facility] Work Phone: Comment on above: Reference Range: 0.1 0 - 1.00 Monocytes/100 WBC (Bld) 7.0 % 2.0 - 10.0 [facility] Work Phone: Neutrophils (Bld) [#/Vol] 3.60 {x10E9/L} See Below [facility] Work Phone: Comment on above: Reference Range: 1.2 0 - 7.70 Percent differential counts (%) should be interpreted in the context of the absolute cell counts (cells/L). Neutrophils/100 WBC (Bld) 62.9 % See Below [facility] Work Phone: Comment on above: Reference Range: 40. 0 - 80.0 Platelets (Bld) [#/Vol] 102 {x10E9/L} below low threshold 150 - 450 [facility] Work Phone: RBC (Bld) [#/Vol] 4.43 {x10E12/L} See Below [facility] Work Phone: Comment on above: Reference Range: 4.0 0 - 5.20 WBC (Bld) [#/Vol] 0.1 {/100_WBC} [facility] Work Phone: WBC (Bld) [#/Vol] 5.7 {x10E9/L} 4.4 - 11.3 [facility] Work Phone: Metabolic Panelon 01-14-2021 ALP [Catalytic activity/Vol] 58 U/L 33 - 110 [facility] Work Phone: Anion gap [Moles/Vol] 13 mmol/L 10 - 20 [facility] Work Phone: Bilirubin [Mass/Vol] 0.3 mg/dL 0.0 - 1.2 -[facility] Internal [facility] Work Phone: Calcium [Mass/Vol] 8.2 mg/dL below low threshold 8.6 - 10.3 [facility] Medicine Work Phone: Chloride [Moles/Vol] 101 mmol/L 98 - 107 [facility] Work Phone: CO2 [Moles/Vol] 29 mmol/L 21 - 32 [facility] Medicine Work Phone: Creatinine [Mass/Vol] 1.21 mg/dL above high threshold See Below [facility] Work Phone: Comment on above: Reference Range: 0.5 0 - 1.05 Glucose [Mass/Vol] 127 mg/dL above high threshold 74 - 99 [facility] Work Phone: Potassium [Moles/Vol] 3.1 mmol/L below low threshold 3.5 - 5.3 [facility] Work Phone: Protein [Mass/Vol] 5.4 g/dL below low threshold 6.4 - 8.2 [facility] Work Phone: Sodium [Moles/Vol] 140 mmol/L 136 - 145 [facility] Work Phone: Urea nitrogen [Mass/Vol] 15 mg/dL 6 - 23 [facility] Work Phone: Otheron 01-14-2021 Albumin BCP dye [Mass/Vol] 3.6 g/dL 3.4 - 5.0 [facility] Work Phone: ALT With P-5'-P [Catalytic activity/Vol] 7 U/L 7 - 45 [facility] Work Phone: Comment on above: Patients treated wit h Sulfasalazine may generate falsely decreased results for ALT. AST With P-5'-P [Catalytic activity/Vol] 12 U/L 9 - 39 [facility] Work Phone: 58 {mL/min/1.73m2} Abnormal >60 [facility] Work Phone: Comment on above: CALCULATIONS OF FRIEDA MATED GFR ARE PERFORMED USING THE MDRD STUDY EQUATION FOR THE IDMS-TRACEABLE CREATININE METHODS. CLIN CHEM 2007;53:766-72 48 {mL/min/1.73m2} Abnormal >60 [facility] Work Phone: Basic Metabolic Panelon 11-18 Anion gap [Moles/Vol] 7 mmol/L Low 10 - 2 0 mmol/L [facility] Calcium [Mass/Vol] 8.4 mg/dL 8.4 - 10. 2 mg/dL [facility] Chloride [Moles/Vol] 103 mmol/L 98 - 10 8 mmol/L [facility] Creatinine [Mass/Vol] 1.35 mg/dL High 0.40 - 1.10 [facility] GFR/1.73 sq M predicted among non-blacks MDRD (S/P/Bld) [Vol rate/Area] The eGFR should be used for monitoring renal function only and not for medication dosing. [facility] GFR/1.73 sq M.predicted CKD-EPI (S/P/Bld) [Vol rate/Area] 47 Low >=60 mL/min/1.73 m2 [facility] Glucose [Mass/Vol] 90 mg/dL 65 - 99 mg/dL [facility] HCO3 [Moles/Vol] 31 mmol/L 21 - 32 mmol/L [facility] Interpretation and review of laboratory results Abnormal [facility] Potassium [Moles/Vol] 3.3 mmol/L Low 3.5 - 5.1 mmol/L [facility] Sodium [Moles/Vol] 138 mmol/L 135 - 145 mmol/L [facility] Urea nitrogen [Mass/Vol] 16 mg/dL 8 - 25 mg/dL [facility] Urea nitrogen/Creatinine [Mass ratio] 11.9 mg/mg [facility] CBCon 12-02-2020 Erythrocyte distribution width (RBC) [Entitic vol] 12.6 % 11.6 - 14.8 % [facility] Hematocrit (Bld) [Volume fraction] 41.1 % 36.0 - 46.0 % [facility] Hemoglobin (Bld) [Mass/Vol] 13.3 g/dL 12.0 - 16.0 g/dL [facility] Interpretation and review of laboratory results Abnormal [facility] MCH (RBC) [Entitic mass] 30.0 pg 26.0 - 34.0 pg [facility] MCHC (RBC) [Mass/Vol] 32.4 g/dL 31.0 - 37.0 g/dL [facility] MCV (RBC) [Entitic vol] 92.8 fL 80.0 - 100.0 fL [facility] Nucleated RBC (Bld) [#/Vol] 0.00 10*3/uL [facility] Nucleated RBC/100 WBC (Bld) [Ratio] 0.0 % [facility] Platelet mean volume (Bld) [Entitic vol] 10.5 fL 9.4 - 12.4 fL [facility] Platelets (Bld) [#/Vol] 118 10*3/uL Low [facility] RBC (Bld) [#/Vol] 4.43 10*6/uL [facility] WBC (Bld) [#/Vol] 5.33 10*3/uL [facility] CBC WITH AUTO DIFFERENTIALon 12-01-2020 Basophils (Bld) [#/Vol] 0.02 10*3/uL [facility] Basophils/100 WBC (Bld) 0.3 % [facility] Eosinophils (Bld) [#/Vol] 0.01 10*3/uL [facility] Eosinophils/100 WBC (Bld) 0.1 % [facility] Erythrocyte distribution width (RBC) [Entitic vol] 12.6 % 11.6 - 14.8 % [facility] Hematocrit (Bld) [Volume fraction] 40.7 % 36.0 - 46.0 % [facility] Hemoglobin (Bld) [Mass/Vol] 14.0 g/dL 12.0 - 16.0 g/dL [facility] Immature granulocytes (Bld) [#/Vol] 0.14 10*3/uL [facility] Immature granulocytes/100 WBC (Bld) 1.90 % [facility] Comment on above: The IG parameter is the percentage of metamyelocytes, myelocytes and promyelocytes. An immature granulocyte count (IG) of 1% or more suggests the possibility of infection, an IG count of 3% is very likely related to an infection. Interpretation and review of laboratory results Abnormal [facility] Lymphocytes (Bld) [#/Vol] 1.35 10*3/uL [facility] Lymphocytes/100 WBC (Bld) 18.1 % [facility] MCH (RBC) [Entitic mass] 30.0 pg 26.0 - 34.0 pg [facility] MCHC (RBC) [Mass/Vol] 34.4 g/dL 31.0 - 37.0 g/dL [facility] MCV (RBC) [Entitic vol] 87.2 fL 80.0 - 100.0 fL [facility] Monocytes (Bld) [#/Vol] 0.52 10*3/uL [facility] Monocytes/100 WBC (Bld) 7.0 % [facility] Neutrophils (Bld) [#/Vol] 5.40 10*3/uL [facility] Neutrophils/100 WBC (Bld) 72.6 % [facility] Nucleated RBC (Bld) [#/Vol] 0.00 10*3/uL [facility] Nucleated RBC/100 WBC (Bld) [Ratio] 0.0 % [facility] Platelet mean volume (Bld) [Entitic vol] 10.5 fL 9.4 - 12.4 fL [facility] Platelets (Bld) [#/Vol] 137 10*3/uL Low [facility] RBC (Bld) [#/Vol] 4.67 10*6/uL [facility] WBC (Bld) [#/Vol] 7.44 10*3/uL [facility] COVID-19/Influenza A,B Molec ularon 12-01-2020 Influenza A Not Detected Not Detected [facility] Influenza B Not Detected Not Detected [facility] Interpretation and review of laboratory results Normal [facility] SARS-CoV-2 Not Detected Not Detected [facility] This test was perfor med under [...] the following links: For Healthcare Providers: https://www.fda.gov/med ia/811252/download For Patients: https://www.fda.gov/med ia/018441/download [facility] CT CERVICAL SPINE WITHOUT CO NTRASTon 12-01-2020 1. No acute bone abnormality. 2. Multilevel mild-moderate degenerative disc disease. Workstation ID: [id number] [facility] Interface, Rad In Fu ji Speechq [...] mild-moderate degenerative disc disease. Workstation ID: [id number] [facility] EXAMINATION: CT CERVICAL SPINE WITHOUT CONTRAST [...] of hemorrhage. PARASPINAL AREA: No visible mass. [facility] Chem 7on 12-01-2020 Anion gap [Moles/Vol] 12 mmol/L 10 - 2 0 mmol/L [facility] Chloride [Moles/Vol] 101 mmol/L 98 - 10 8 mmol/L [facility] Creatinine [Mass/Vol] 1.52 mg/dL High 0.40 - 1.10 [facility] GFR/1.73 sq M predicted among non-blacks MDRD (S/P/Bld) [Vol rate/Area] The eGFR should be used for monitoring renal function only and not for medication dosing. [facility] GFR/1.73 sq M.predicted CKD-EPI (S/P/Bld) [Vol rate/Area] 41 Low >=60 mL/min/1.73 m2 [facility] Glucose [Mass/Vol] 111 mg/dL High 65 - 99 mg/dL [facility] HCO3 [Moles/Vol] 26 mmol/L 21 - 32 mmol/L [facility] Potassium [Moles/Vol] 3.1 mmol/L Low 3.5 - 5.1 mmol/L [facility] Sodium [Moles/Vol] 136 mmol/L 135 - 145 mmol/L [facility] Urea nitrogen [Mass/Vol] 15 mg/dL 8 - 25 mg/dL [facility] Urea nitrogen/Creatinine [Mass ratio] 9.9 mg/mg Low [facility] Hepatic Function Panel (LFT) on 12-01-2020 Albumin [Mass/Vol] 3.8 g/dL 3.2 - 5.2 g/dL [facility] ALP [Catalytic activity/Vol] 72 U/L 40 - 150 U/L [facility] ALT [Catalytic activity/Vol] 21 U/L 14 - 65 U/L [facility] AST [Catalytic activity/Vol] 49 U/L High 0 - 45 U/L [facility] Bilirubin [Mass/Vol] 0.5 mg/dL 0.0 - 1 .3 mg/dL [facility] Bilirubin.conjugated [Mass/Vol] 0.1 mg/dL 0.0 - 0.4 mg/dL [facility] Protein [Mass/Vol] 7.2 g/dL 6.0 - 8.0 g/dL [facility] Otheron 12-01-2020 Extra Tube Hold for add-ons. [facility] Comment on above: Auto resulted. Interface, Rad [...] Left maxillary chronic sinusitis. Workstation ID: [id number] [facility] EXAMINATION: CT MAXILLOFACIAL WITHOUT CONTRAST; CT [...] of the right and left nasal bones. [facility] 1. Normal CT appeara nce of the brain. 2. Nondisplaced fractures of the right and left nasal bones. 3. Left maxillary chronic sinusitis. Workstation ID: [id number] [facility] Interpretation and review of laboratory results Abnormal [facility] TSH with Reflex Free T4on Interpretation and review of laboratory results Normal [facility] TSH Qn 4.18 m[IU]/L [facility] Complete Blood Count + Diffe rentialon 09-07-2019 Erythrocyte distribution width (RBC) [Ratio] 15.2 % above high threshold See Below [employer] Work Phone: Comment on above: Reference Range: 11. 5 - 14.5 Ordering Provider: Milagro Guadarrama03 Hematocrit (Bld) [Volume fraction] 38.5 % See Below [employer] Work Phone: Comment on above: Reference Range: 36. 0 - 46.0 Ordering Provider: Milagro PADRON 72709 Hemoglobin (Bld) [Mass/Vol] 13.1 g/dL See Below [employer] Work Phone: Comment on above: Reference Range: 12. 0 - 16.0 Ordering Provider: Milagro PADRON 26592 MCHC (RBC) [Mass/Vol] 34.0 g/dL See Below [facility] Work Phone: Comment on above: Reference Range: 32. 0 - 36.0 Ordering Provider: Milagro PADRON 71621 MCV (RBC) [Entitic vol] 91 fL 80 - 100 [employer] Work Phone: Comment on above: Ordering Provider: Milagro PADRON 64781 Platelets (Bld) [#/Vol] 92 {x10E9/L} below low threshold 150 - 450 [employer] Work Phone: Comment on above: Ordering Provider: Milagro AVIMilagro KELLYREN 30467 RBC (Bld) [#/Vol] 4.25 {x10E12/L} See Below [facility] [address] Work Phone: Comment on above: Reference Range: 4.0 0 - 5.20 Ordering Provider: Milagro AVID JAMIEHREN 39858 WBC (Bld) [#/Vol] 5.9 {x10E9/L} 4.4 - 11.3 [facility] [address] Work Phone: Comment on above: Ordering Provider: Milagro PADRON 73229 Complete Blood Count + Differential SEE MANUAL DIFF [facility] [address] Work Phone: Comment on above: Ordering Provider: Milagro PADRON 73844 Hematologyon 09-07-2019 Band form neutrophils/100 WBC (Bld) 1.0 % 0.0 - 5.0 [facility] [employer] Work Phone: Comment on above: Ordering Provider: Milagro AVIMilagro KELLYREN 54918 Basophils (Bld) [#/Vol] 0.00 {x10E9/L} See Below [facility] [address] Work Phone: Comment on above: Reference Range: 0.0 0 - 0.10 Ordering Provider: Milagro AVIMilagro KELLYREN 25861 Basophils/100 WBC (Bld) 0.0 % 0.0 - 2.0 [facility] [address] Work Phone: Comment on above: Ordering Provider: Milagro AVID BAEHREN 75692 Eosinophils (Bld) [#/Vol] 0.00 {x10E9/L} See Below [facility] [address] Work Phone: Comment on above: Reference Range: 0.0 0 - 0.70 Ordering Provider: Milagro AVID BAEHREN 86473 Eosinophils/100 WBC (Bld) 0.0 % 0.0 - 6.0 [facility] [address] Work Phone: Comment on above: Ordering Provider: Milagro PADRON 73858 Lymphocytes (Bld) [#/Vol] 1.59 {x10E9/L} See Below [employer] Phone: Comment on above: Reference Range: 1.2 0 - 4.80 Ordering Provider: Milagro PADRON 11012 Lymphocytes/100 WBC (Bld) 27.0 % See Below [employer] Work Phone: Comment on above: Reference Range: 13. 0 - 44.0 Ordering Provider: Milagro PADRON 36155 Monocytes (Bld) [#/Vol] 0.41 {x10E9/L} See Below [employer] Work Phone: Comment on above: Reference Range: 0.1 0 - 1.00 Ordering Provider: Milagro PADRON 25879 Monocytes/100 WBC (Bld) 7.0 % 2.0 - 10.0 [employer] Work Phone: Comment on above: Ordering Provider: Milagro PADRON 03038 Lipase, Serumon 09-07-2019 Lipase [Catalytic activity/Vol] 40 U/L 9 - 82 [employer] Work Phone: Comment on above: Venipuncture immedia tely after or during the administration of Metamizole may lead to falsely low results. Testing should be performed immediately prior to Metamizole dosing. A-rwlpxg-o-benzoquinone imine (metabolite of Acetaminophen) will generate erroneously low results in samples for patients that have taken toxic doses of acetaminophen. Ordering Provider: Milagro PADRON 29570 Metabolic Panelon 09-07-2019 ALP [Catalytic activity/Vol] 55 U/L 33 - 110 [employer] Work Phone: Comment on above: Ordering Provider: Milagro PADRON 60715 Anion gap [Moles/Vol] 13 mmol/L 10 - 20 [facility] Work Phone: Comment on above: Ordering Provider: D AVID BAEHREN 47393 Bilirubin [Mass/Vol] 0.3 mg/dL 0.0 - 1.2 [facility] [address] Work Phone: Comment on above: Ordering Provider: D AVID BAEHREN 16719 Calcium [Mass/Vol] 9.7 mg/dL 8.6 - 10.3 [facility] [address] Work Phone: Comment on above: Ordering Provider: D AVID BAEHREN 12718 Chloride [Moles/Vol] 97 mmol/L below low threshold 98 - 107 [facility] [address] Work Phone: Comment on above: Ordering Provider: D AVID BAEHREN 28324 CO2 [Moles/Vol] 32 mmol/L 21 - 32 [facility] [address] Work Phone: Comment on above: Ordering Provider: D AVID BAEHREN 55400 Creatinine [Mass/Vol] 1.47 mg/dL above high threshold See Below [facility] [address] Work Phone: Comment on above: Reference Range: 0.5 0 - 1.05 Ordering Provider: D AVID BAEHREN 40075 Glucose [Mass/Vol] 94 mg/dL 74 - 99 [facility] [address] Work Phone: Comment on above: Ordering Provider: D AVID BAEHREN 09285 Potassium [Moles/Vol] 4.4 mmol/L 3.5 - 5.3 [facility] [address] Work Phone: Comment on above: Ordering Provider: D AVID BAEHREN 19830 Protein [Mass/Vol] 6.3 g/dL below low threshold 6.4 - 8.2 [facility] [address] Work Phone: Comment on above: Ordering Provider: D AVID BAEHREN 44564 Sodium [Moles/Vol] 138 mmol/L 136 - 145 [facility] [address] Work Phone: Comment on above: Ordering Provider: D AVID BAEHREN 46937 Urea nitrogen [Mass/Vol] 20 mg/dL 6 - 23 [facility] [address] Work Phone: Comment on above: Ordering Provider: Milagro PADRON 62527 Otheron 09-07-2019 Albumin BCP dye [Mass/Vol] 4.1 g/dL 3.4 - 5.0 [facility] [address] Work Phone: Comment on above: Ordering Provider: Milagro PADRON 48783 ALT With P-5'-P [Catalytic activity/Vol] 19 U/L 7 - 45 [facility] [address] Work Phone: Comment on above: Patients treated wit h Sulfasalazine may generate falsely decreased results for ALT. Ordering Provider: Milagro PADRON 25165 AST With P-5'-P [Catalytic activity/Vol] 21 U/L 9 - 39 [facility] [address] Work Phone: Comment on above: Ordering Provider: Milagro PADRON 65616 Segmented neutrophils/100 WBC (Bld) 65.0 % See Below [facility] [address] Work Phone: Comment on above: Reference Range: 40. 0 - 80.0 Percent differential counts (%) should be interpreted in the context of the absolute cell counts (cells/L). Ordering Provider: Milagro KELLYREN 88562 38 {mL/min/1.73m2} Abnormal >60 [facility] [address] Work Phone: Comment on above: Ordering Provider: Milagro KELLYREN 33209 46 {mL/min/1.73m2} Abnormal >60 [facility] [address] Work Phone: Comment on above: CALCULATIONS OF FRIEDA MATED GFR ARE PERFORMED USING THE MDRD STUDY EQUATION FOR THE IDMS-TRACEABLE CREATININE METHODS. CLIN CHEM 2007;53:766-72 Ordering Provider: Milagro PADRON 57145 NORMAL [facility] [address] Work Phone: Comment on above: Ordering Provider: Milagro PADRON 60632 3.90 {x10E9/L} See Below [facility] [address] [employer] Work Phone: Comment on above: Reference Range: 1.2 0 - 7.70 Ordering Provider: Milagro PADRON 72054 3.84 {x10E9/L} See Below [facility] [address] [employer] Work Phone: Comment on above: Reference Range: 1.2 0 - 7.00 Ordering Provider: Milagro PADRON 79111 0.06 {x10E9/L} See Below [facility] [address] [employer] Work Phone: Comment on above: Reference Range: 0.0 0 - 0.70 Ordering Provider: Milagro PADRON 61299 Other 08-21-2019 XR Knee 4 views Interpreted by: TARUN JARA08/20/19 22:23MRN: [id number] Name: REEMA SHAH STUDY:KNEE; COMPLT, 4 OR MORE VIEWS;Left; 08/20/2019 10:00 pm INDICATION:fall. COMPARISON:None. ORDERING CLINICIAN:TENISHA LANE FINDINGS:Four views left knee. No acute fracture or malalignment. Bones appear normally mineralized.No significant degenerative changes. No knee effusion. Soft tissuesare within normal limits. IMPRESSION:Normal left knee radiography. Electronically signed by: HEIDY JARA 08/20/19 22:23 Normal [facility] [employer] Work Phone: Comment on above: Ordering Provider: Maria G [address] [address] [facility] 08-20-2019 CT Head limited WO contrast Interpreted by: HEIDY JARA08/20/19 22:22MRN: [id number] Name: REEMA SHAH STUDY:CT HEAD WO CONTRAST; CT C-SPINE WO CONTRAST;; 08/20/2019 9:58 pm INDICATION:fall. COMPARISON:03/18/[address] cervical spine from 03/16/2019. [id number] ORDERING CLINICIAN:TENISHA LANE TECHNIQUE:Noncontrast CT exams of [...] JARA 08/20/19 22:22 Normal [facility] [employer] Work Phone: Comment on above: Ordering Provider: Maria G [address] [id number] Interpreted by: TARUN JARA08/20/19 22:22MRN: [id number] Name: REEMA SHAH STUDY:CT HEAD WO CONTRAST; CT C-SPINE WO CONTRAST;; 08/20/2019 9:58 pm INDICATION:fall. COMPARISON:03/18/[address] cervical spine from 03/16/2019. [id number] ORDERING CLINICIAN:TENISHA LANE TECHNIQUE:Noncontrast CT exams of [...] signed by: HEIDY JARA 08/20/19 22:22 Normal [facility] [employer] Work Phone: Comment on above: Ordering Provider: Maria G [address] [address] Otheron 08-03-2019 Interpreted by: STACY SANCHEZ 22:49MRN: [id number] Name: REEMA SHAH STUDY:US PELVIS TRANSABDOMINAL WITH [...] PARK 08/03/19 22:49 Normal [facility] [employer] Work Phone: Chlamydia GC by PCRon 2018 Chlamydia by PCR. Not Detected Normal Not Detected [facility] Comment on above: Result Comment: Xper t CT/NG Assay performance has not been evaluated in patients less than 14 years of age. Performed By: #### 1 [id number] #### MARCUS RemHemo [address] [place] [address] Gonorrhoeae by PCR Not Detected Normal Not Detected [facility] Comment on above: Result Comment: Xper t CT/NG Assay performance has not been evaluated in patients less than 14 years of age. Performed By: #### 1 [id number] #### MARCUS RemHemo [facility] [place] [address] CT Abdomen/Pelvis w/ Contras ton 07-05-2019 CT Abdomen/Pelvis w/ Contrast Exam Date/Time: 07/05/2019 13:33 EDT Reason for Exam: ABDOMINAL PAIN AND TENDERNESS Report STUDY: CT Abdomen/Pelvis w/ Contrast; 07/05/2019 1:33 pm INDICATION: ABDOMINAL PAIN AND TENDERNESS. COMPARISON: 12/02/2018 ACCESSION NUMBER(S): [id number] ORDERING CLINICIAN: Jeanie Ayala TECHNIQUE: Contiguous axial [...] by: Andrey Sunshine MD Technologist: MM, Normal [facility] BMPon 03-25-2019 Anion gap [Moles/Vol] 10 mmol/L Normal 10-20 [facility] Comment on above: Performed By: #### 1 [id number] #### [facility] Rem[facility]emo [address] [place] [address] Calcium [Mass/Vol] 8.7 mg/dL Normal 8.6-10.3 [facility] Comment on above: Performed By: #### 1 [id number] #### MARCUS RemHemo [address] [place] [address] Chloride [Moles/Vol] 108 mmol/L High 98-107 [facility] Comment on above: Performed By: #### 1 [id number] #### MARCUS RemHemo [address] [place] [address] CO2 [Moles/Vol] 25.0 mmol/L Normal 21.0-32.0 [facility] Comment on above: Performed By: #### 1 [id number] #### MARCUS RemHemo [address] [place] [address] Creatinine [Mass/Vol] 1.2 mg/dL High 0.5-1.1 [facility] Comment on above: Performed By: #### 1 [id number] #### MARCUS Kenyono [facility] [place] [address] Glucose [Mass/Vol] 97 mg/dL Normal 70-99 [facility] Comment on above: Performed By: #### 1 [id number] #### MARCUS Kenyono [address] [place] [address] Potassium [Moles/Vol] 4.5 mmol/L Normal 3.5-5.3 [facility] Comment on above: Performed By: #### 1 [id number] #### MARCUS Kenyono [address] [place] [address] Sodium [Moles/Vol] 138 mmol/L Normal 136-145 [facility] Comment on above: Performed By: #### 1 [id number] #### MARCUS Kenyono [address] [place] [address] Urea nitrogen [Mass/Vol] 14 mg/dL Normal 6-23 [facility] Comment on above: Performed By: #### 1 [id number] #### MARCUS Kenyono [address] [place] [address] Urea nitrogen/Creatinine [Mass ratio] 11.7 ratio Normal 5.4-30.0 [facility] Comment on above: Performed By: #### 1 [id number] #### MARCUS Kenyono [address] [place] [address] Magnesiumon 03-25-2019 Magnesium [Mass/Vol] 2.0 mg/dL Normal 1.6-2.4 [facility] Comment on above: Performed By: #### 1 [id number] #### MARCUS WilcoxHemo [facility] [place] [address] eGFRon 03-25-2019 GFR/1.73 sq M predicted among non-blacks MDRD (S/P/Bld) [Vol rate/Area] mL/min/{1.73_m2} Normal [facility] Comment on above: Order Comment: Order Added by Discern Expert. Performed By: #### 1 [id number] #### MARCUS WilcoxHemo [address] [place] [address] GFR/1.73 sq M predicted among non-blacks MDRD (S/P/Bld) [Vol rate/Area] 50 mL/min/1.73 m2 Normal [facility] Comment on above: Order Comment: Order Added by Discern Expert. Performed By: #### 1 [id number] #### MARCUS WilcoxHemo [address] [place] [address] Auto Diffon 03-24-2019 Basophils (Bld) [#/Vol] 0.0 E3/mcL Normal 0.0-0.2 [facility] Comment on above: Order Comment: Order Added by Katya Expert. Performed By: #### 1 [id number] #### MARCUS WilcoxHemo [address] [place] [address] Basophils/100 WBC (Bld) 0.1 % Normal 0.0-2.0 [facility] Comment on above: Order Comment: Order Added by Katya Expert. Performed By: #### 1 [id number] #### MARCUS WilcoxHemo [address] [place] [address] Eos Absolute 0.1 E3/mcL Normal 0.0-0.7 [facility] Comment on above: Order Comment: Order Added by Discern Expert. Performed By: #### 1 [id number] #### MARCUS WilcoxHemo [address] [place] [address] Eosinophils/100 WBC (Bld) 1.7 % Normal 0.0-11.0 [facility] Comment on above: Order Comment: Order Added by Discern Expert. Performed By: #### 1 [id number] #### MARCUS RemHemo [address] [place] [address] Lymphocytes (Bld) [#/Vol] 1.3 E3/mcL Normal 1.2-3.4 [facility] Comment on above: Order Comment: Order Added by Discern Expert. Performed By: #### 1 [id number] #### MARCUS RemHemo [address] [place] [address] Lymphocytes/100 WBC (Bld) 33.8 % Normal 20.0-55.0 [facility] Comment on above: Order Comment: Order Added by Discern Expert. Performed By: #### 1 [id number] #### MARCUS RemHemo [address] [place] [address] Gentry Absolute 0.4 E3/mcL Normal 0.0-0.7 [facility] Comment on above: Order Comment: Order Added by Discern Expert. Performed By: #### 1 [id number] #### MARCUS WilcoxHemo [address] [place] [address] Monocytes/100 WBC (Bld) 11.3 % High 0.0-10.0 [facility] Comment on above: Order Comment: Order Added by Discern Expert. Performed By: #### 1 [id number] #### MARCUS RemHemo [address] [place] [address] Neutro Absolute 2.1 E3/mcL Normal 1.4-6.5 [facility] Comment on above: Order Comment: Order Added by Discern Expert. Performed By: #### 1 [id number] #### MARCUS RemHemo [address] [place] [address] Neutro Auto 53.1 % Normal 37.0-75.0 [facility] Comment on above: Order Comment: Order Added by Discern Expert. Performed By: #### 1 [id number] #### MARCUS RemHemo [address] [place] [address] BMPon 03-24-2019 Anion gap [Moles/Vol] 9 mmol/L Low 10-20 [facility] Comment on above: Performed By: #### 1 [id number] #### MARCUS RemHemo [address] [place] [address] Calcium [Mass/Vol] 8.2 mg/dL Low 8.6-10.3 [facility] Comment on above: Performed By: #### 1 [id number] #### MARCUS RemHemo [address] [place] [address] Chloride [Moles/Vol] 110 mmol/L High 98-107 [facility] Comment on above: Performed By: #### 1 [id number] #### MARCUS RemHemo [address] [place] [address] CO2 [Moles/Vol] 23.0 mmol/L Normal 21.0-32.0 [facility] Comment on above: Performed By: #### 1 [id number] #### MARCUS RemHemo [address] [place] [address] Creatinine [Mass/Vol] 1.1 mg/dL Normal 0.5-1.1 [facility] Comment on above: Performed By: #### 1 [id number] #### MARCUS RemHemo [address] [place] [address] Glucose [Mass/Vol] 92 mg/dL Normal 70-99 [facility] Comment on above: Performed By: #### 1 [id number] #### MARCUS RemHemo [address] [place] [address] Potassium [Moles/Vol] 4.1 mmol/L Normal 3.5-5.3 [facility] Comment on above: Performed By: #### 1 [id number] #### MARCUS RemHemo [address] [place] [address] Sodium [Moles/Vol] 138 mmol/L Normal 136-145 [facility] Comment on above: Performed By: #### 1 [id number] #### MARCUS RemHemo [address] [place] [address] Urea nitrogen [Mass/Vol] 11 mg/dL Normal 6-23 [facility] Comment on above: Performed By: #### 1 [id number] #### MARCUS RemHemo [address] [place] [address] Urea nitrogen/Creatinine [Mass ratio] 10.0 ratio Normal 5.4-30.0 [facility] Comment on above: Performed By: #### 1 [id number] #### MARCUS RemHemo [address] [place] [address] CBC w/ Auto Diffon 9 Erythrocyte distribution width (RBC) [Ratio] 13.4 % Normal 11.5-14.5 [facility] Comment on above: Performed By: #### 1 [id number] #### MARCUS RemHemo [address] [place] [address] Hematocrit (Bld) [Volume fraction] 36.3 % Normal 36.0-48.0 [facility] Comment on above: Performed By: #### 1 [id number] #### MARCUS RemHemo [address] [place] [address] Hemoglobin (Bld) [Mass/Vol] 12.3 g/dL Normal 12.0-16.0 [facility] Comment on above: Performed By: #### 1 [id number] #### MARCUS RemHemo [address] [place] [address] MCH (RBC) [Entitic mass] 30.4 pg Normal 27.0-31.0 [facility] Comment on above: Performed By: #### 1 [id number] #### MARCUS RemHemo [address] [place] [address] MCHC (RBC) [Mass/Vol] 33.7 g/dL Normal 33.0-37.0 [facility] Comment on above: Performed By: #### 1 [id number] #### MARCUS RemHemo [address] [place] [address] MCV (RBC) [Entitic vol] 90.1 fL Normal 78.0-100.0 [facility] Comment on above: Performed By: #### 1 [id number] #### MARCUS RemHemo [address] [place] [address] Platelet mean volume (Bld) [Entitic vol] 8.3 fL Normal 7.4-11.0 [facility] Comment on above: Performed By: #### 1 [id number] #### MARCUS RemHemo [address] [place] [address] Platelets (Bld) [#/Vol] 101 E3/mcL Low 130-400 [facility] Comment on above: Performed By: #### 1 [id number] #### MARCUS RemHemo [facility] [place] [address] RBC (Bld) [#/Vol] 4.04 E6/mcL Normal 3.90-5.40 [facility] Comment on above: Performed By: #### 1 [id number] #### MARCUS RemHemo [address] [place] [address] WBC (Bld) [#/Vol] 3.9 E3/mcL Normal 3.6-11.0 [facility] Comment on above: Performed By: #### 1 [id number] #### MARCUS RemHemo [address] [place] [address] Magnesiumon 03-24-2019 Magnesium [Mass/Vol] 2.1 mg/dL Normal 1.6-2.4 [facility] Comment on above: Performed By: #### 1 [id number] #### MARCUS WilcoxHemo [address] [place] [address] eGFRon 03-24-2019 GFR/1.73 sq M predicted among non-blacks MDRD (S/P/Bld) [Vol rate/Area] 55 mL/min/1.73 m2 Normal [facility] Comment on above: Order Comment: Order Added by Discern Expert. Performed By: #### 1 [id number] #### [place] [address] GFR/1.73 sq M predicted among non-blacks MDRD (S/P/Bld) [Vol rate/Area] mL/min/{1.73_m2} Normal [facility] Comment on above: Order Comment: Order Added by Discern Expert. Performed By: #### 1 [id number] #### MARCUS WilcoxHemo [address] [place] [address] .Manual Abson 03-23-2019 Basophil Abs Man 0.0 10x3/ Normal 0.0-0.2 [facility] Comment on above: Order Comment: Order Added by Katya Expert. Performed By: #### 1 [id number] #### MARCUSShawn WilcoxHemo [address] [place] [address] Eos Abs Man 0.0 10x3/ Normal 0.0-0.5 [facility] Comment on above: Order Comment: Order Added by Katay Expert. Performed By: #### 1 [id number] #### MARCUSShawn WilcoxHemo [address] [place] [address] Lymph Abs Man 1.6 10x3/ Normal 1.2-3.4 [facility] Comment on above: Order Comment: Order Added by Katya Expert. Performed By: #### 1 [id number] #### MARCUSShawn WilcoxHemo [address] [place] [address] Gentry Abs Man 0.1 10x3/ Normal 0.0-0.7 [facility] Comment on above: Order Comment: Order Added by Discern Expert. Performed By: #### 1 [id number] #### MARCUS RemHemo [address] [place] [address] Segs Abs Man 1.3 10x3/ Low 1.4-6.5 [facility] Comment on above: Order Comment: Order Added by Discern Expert. Performed By: #### 1 [id number] #### MARCUS WilcoxHemo [address] [place] [address] BMPon 03-23-2019 Anion gap [Moles/Vol] 8 mmol/L Low 10-20 [facility] Comment on above: Performed By: #### 1 [id number] #### MARCUS RemHemo [address] [place] [address] Calcium [Mass/Vol] 7.8 mg/dL Low 8.6-10.3 [facility] Comment on above: Performed By: #### 1 [id number] #### MARCUS RemHemo [address] [place] [address] Chloride [Moles/Vol] 111 mmol/L High 98-107 [facility] Comment on above: Performed By: #### 1 [id number] #### MARCUS RemHemo [address] [place] [address] CO2 [Moles/Vol] 22.0 mmol/L Normal 21.0-32.0 [facility] Comment on above: Performed By: #### 1 [id number] #### MARCUS RemHemo [address] [place] [address] Creatinine [Mass/Vol] 1.1 mg/dL Normal 0.5-1.1 [facility] Comment on above: Performed By: #### 1 [id number] #### MARCUS RemHemo [address] [place] [address] Glucose [Mass/Vol] 102 mg/dL High 70-99 [facility] Comment on above: Performed By: #### 1 [id number] #### MARCUS RemHemo [address] [place] [address] Potassium [Moles/Vol] 3.5 mmol/L Normal 3.5-5.3 [facility] Comment on above: Performed By: #### 1 [id number] #### MARCUS RemHemo [address] [place] [address] Sodium [Moles/Vol] 138 mmol/L Normal 136-145 [facility] Comment on above: Performed By: #### 1 [id number] #### MARCUS RemHemo [address] [place] [address] Urea nitrogen [Mass/Vol] 9 mg/dL Normal 6-23 [facility] Comment on above: Performed By: #### 1 [id number] #### MARCUS RemHemo [address] [place] [address] Urea nitrogen/Creatinine [Mass ratio] 8.2 ratio Normal 5.4-30.0 [facility] Comment on above: Performed By: #### 1 [id number] #### MARCUS WilcoxHemo [facility] [place] [address] CBC w/ Auto Diffon 9 Erythrocyte distribution width (RBC) [Ratio] 13.6 % Normal 11.5-14.5 [facility] Comment on above: Performed By: #### 1 [id number] #### MARCUS WilcoxHemo [address] [place] [address] Hematocrit (Bld) [Volume fraction] 36.9 % Normal 36.0-48.0 [facility] Comment on above: Performed By: #### 1 [id number] #### MARCUS WilcoxHemo [address] [place] [address] Hemoglobin (Bld) [Mass/Vol] 12.2 g/dL Normal 12.0-16.0 [facility] Comment on above: Performed By: #### 1 [id number] #### MARCUS RemHemo [address] [place] [address] MCH (RBC) [Entitic mass] 30.1 pg Normal 27.0-31.0 [facility] Comment on above: Performed By: #### 1 [id number] #### MARCUS RemHemo [address] [place] [address] MCHC (RBC) [Mass/Vol] 33.1 g/dL Normal 33.0-37.0 [facility] Comment on above: Performed By: #### 1 [id number] #### MARCUS WilcoxHemo [address] [place] [address] MCV (RBC) [Entitic vol] 91.0 fL Normal 78.0-100.0 [facility] Comment on above: Performed By: #### 1 [id number] #### MARCUS WilcoxHemo [address] [place] [address] Platelet mean volume (Bld) [Entitic vol] 8.3 fL Normal 7.4-11.0 [facility] Comment on above: Performed By: #### 1 [id number] #### MARCUS RemHemo [address] [place] [address] Platelets (Bld) [#/Vol] 97 E3/mcL Low 130-400 [facility] Comment on above: Performed By: #### 1 [id number] #### MARCUS WilcoxHemo [address] [place] [address] RBC (Bld) [#/Vol] 4.05 E6/mcL Normal 3.90-5.40 [facility] Comment on above: Performed By: #### 1 [id number] #### MARCUS WilcoxHemo [address] [place] [address] WBC (Bld) [#/Vol] 3.0 E3/mcL Low 3.6-11.0 [facility] Comment on above: Performed By: #### 1 [id number] #### MARCUS WilcoxHemo [address] [place] [address] Magnesiumon 03-23-2019 Magnesium [Mass/Vol] 2.9 mg/dL High 1.6-2.4 [facility] Comment on above: Performed By: #### 1 [id number] #### MARCUS WilcoxHemo [address] [place] [address] Manual Diffon 03-23-2019 Anisocytosis Ql (Bld) 1+ Normal [facility] Comment on above: Order Comment: Order Added by Discern Expert. Performed By: #### 1 [id number] #### MARCUS WilcoxHemo [facility] [place] [address] Basophil Man 0 % Normal 0-1 [facility] Comment on above: Order Comment: Order Added by Discern Expert. Performed By: #### 1 [id number] #### MARCUS RemHemo [address] [place] [address] Eosinophils/100 WBC (Bld) 0 % Normal 0-5 [facility] Comment on above: Order Comment: Order Added by Discern Expert. Performed By: #### 1 [id number] #### MARCUS RemHemo [address] [place] [address] Lymphocytes/100 WBC (Bld) 54 % High 14-48 [facility] Comment on above: Order Comment: Order Added by Discern Expert. Performed By: #### 1 [id number] #### MARCUS RemHemo [address] [place] [address] Monocyte Man 4 % Normal 1-11 [facility] Comment on above: Order Comment: Order Added by Discern Expert. Performed By: #### 1 [id number] #### MARCUS RemHemo [address] [place] [address] RBC morphology finding Nom (Bld) SEE MORPHOLOGY Normal [facility] Comment on above: Order Comment: Order Added by Discern Expert. Performed By: #### 1 [id number] #### MARCUS RemHemo [address] [place] [address] Segs Man 42 % Normal 37-75 [facility] Comment on above: Order Comment: Order Added by Discern Expert. Performed By: #### 1 [id number] #### MARCUS RemHemo [address] [place] [address] TSHon 03-23-2019 TSH Qn 2.75 mcIU/mL Normal 0.30-5.60 [facility] Comment on above: Performed By: #### 1 [id number] #### MARCUS RemHemo [address] [place] [address] Troponin-Ion 03-23-2019 Troponin I.cardiac [Mass/Vol] 0.01 ng/mL Normal 0.00-0.03 [facility] Comment on above: Order Comment: Order Added by Discern Expert. Performed By: #### 1 [id number] #### MARCUS RemHemo [address] [place] [address] XR Shoulder Complete Lefton 03-23-2019 XR Shoulder Complete Left Exam Date/Time: 03/23/2019 01:05 EDT Reason for Exam: Fall Report STUDY: XR Shoulder Complete Left;; 03/23/2019 1:05 am INDICATION: Fall. COMPARISON: None. ACCESSION NUMBER(S): [id number] ORDERING CLINICIAN: Narcisa Lo FINDINGS: Five views [...] Signed by: Lisa Rushing MD Technologist: [facility] eGFRon 03-23-2019 GFR/1.73 sq M predicted among non-blacks MDRD (S/P/Bld) [Vol rate/Area] mL/min/{1.73_m2} Normal [facility] Comment on above: Order Comment: Order Added by Discern Expert. Performed By: #### 1 [id number] #### MARCUS RemHemo [facility] [place] [address] GFR/1.73 sq M predicted among non-blacks MDRD (S/P/Bld) [Vol rate/Area] 56 mL/min/1.73 m2 Normal [facility] Comment on above: Order Comment: Order Added by Discern Expert. Performed By: #### 1 [id number] #### MARCUS RemHemo [address] [place] [address] zzplt morphon 03-23-2019 Platelet morphology finding Nom (Bld) NORMAL Normal [facility] Comment on above: Performed By: #### 1 [id number] #### MARCUS RemHemo [address] [place] [address] Platelets (Bld) [#/Vol] DECREASED Normal [facility] Comment on above: Performed By: #### 1 [id number] #### MARCUS RemHemo [address] [place] [address] Auto Diffon 03-22-2019 Basophils (Bld) [#/Vol] 0.0 E3/mcL Normal 0.0-0.2 [facility] Comment on above: Order Comment: Order Added by Discern Expert. Performed By: #### 1 [id number] #### MARCUS RemHemo [address] [place] [address] Basophils/100 WBC (Bld) 0.4 % Normal 0.0-2.0 [facility] Comment on above: Order Comment: Order Added by Discern Expert. Performed By: #### 1 [id number] #### MARCUS RemHemo [address] [place] [address] Eos Absolute 0.1 E3/mcL Normal 0.0-0.7 [facility] Comment on above: Order Comment: Order Added by Discern Expert. Performed By: #### 1 [id number] #### MARCUS RemHemo [address] [place] [address] Eosinophils/100 WBC (Bld) 2.0 % Normal 0.0-11.0 [facility] Comment on above: Order Comment: Order Added by Discern Expert. Performed By: #### 1 [id number] #### MARCUS RemHemo [address] [place] [address] Lymphocytes (Bld) [#/Vol] 1.1 E3/mcL Low 1.2-3.4 [facility] Comment on above: Order Comment: Order Added by Discern Expert. Performed By: #### 1 [id number] #### MARCUS WilcoxHemo [address] [place] [address] Lymphocytes/100 WBC (Bld) 27.1 % Normal 20.0-55.0 [facility] Comment on above: Order Comment: Order Added by Discern Expert. Performed By: #### 1 [id number] #### MARCUS RemHemo [address] [place] [address] Gentry Absolute 0.5 E3/mcL Normal 0.0-0.7 [facility] Comment on above: Order Comment: Order Added by Discern Expert. Performed By: #### 1 [id number] #### MARCUS RemHemo [address] [place] [address] Monocytes/100 WBC (Bld) 11.0 % High 0.0-10.0 [facility] Comment on above: Order Comment: Order Added by Discern Expert. Performed By: #### 1 [id number] #### MARCUS RemHemo [address] [place] [address] Neutro Absolute 2.5 E3/mcL Normal 1.4-6.5 [facility] Comment on above: Order Comment: Order Added by Discern Expert. Performed By: #### 1 [id number] #### MARCUS RemHemo [address] [place] [address] Neutro Auto 59.5 % Normal 37.0-75.0 [facility] Comment on above: Order Comment: Order Added by Discern Expert. Performed By: #### 1 [id number] #### MARCUS RemHemo [address] [place] [address] BMPon 03-22-2019 Anion gap [Moles/Vol] 13 mmol/L Normal 10-20 [facility] Comment on above: Performed By: #### 1 [id number] #### MARCUS RemHemo [address] [place] [address] Calcium [Mass/Vol] 8.4 mg/dL Low 8.6-10.3 [facility] Comment on above: Performed By: #### 1 [id number] #### MARCUS RemHemo [address] [place] [address] Chloride [Moles/Vol] 110 mmol/L High 98-107 [facility] Comment on above: Performed By: #### 1 [id number] #### MARCUS RemHemo [address] [place] [address] CO2 [Moles/Vol] 21.0 mmol/L Normal 21.0-32.0 [facility] Comment on above: Performed By: #### 1 [id number] #### MARCUS RemHemo [address] [place] [address] Creatinine [Mass/Vol] 1.1 mg/dL Normal 0.5-1.1 [facility] Comment on above: Performed By: #### 1 [id number] #### MARCUS RemHemo [address] [place] [address] Glucose [Mass/Vol] 95 mg/dL Normal 70-99 [facility] Comment on above: Performed By: #### 1 [id number] #### MARCUS RemHemo [address] [place] [address] Potassium [Moles/Vol] 4.0 mmol/L Normal 3.5-5.3 [facility] Comment on above: Performed By: #### 1 [id number] #### MARCUS Kenyono [facility] [place] [address] Sodium [Moles/Vol] 139 mmol/L Normal 136-145 [facility] Comment on above: Performed By: #### 1 [id number] #### MARCUS Kenyono [address] [place] [address] Urea nitrogen [Mass/Vol] 10 mg/dL Normal 6-23 [facility] Comment on above: Performed By: #### 1 [id number] #### MARCUS Kenyono [address] [place] [address] Urea nitrogen/Creatinine [Mass ratio] 9.1 ratio Normal 5.4-30.0 [facility] Comment on above: Performed By: #### 1 [id number] #### MARCUSShawn Kenoyn[address] [address] CBC w/ Auto Diffon 9 Erythrocyte distribution width (RBC) [Ratio] 13.5 % Normal 11.5-14.5 [facility] Comment on above: Performed By: #### 1 [id number] #### MARCUS Kenyono [address] [place] [address] Hematocrit (Bld) [Volume fraction] 37.5 % Normal 36.0-48.0 [facility] Comment on above: Performed By: #### 1 [id number] #### MARCUS Kenyono [address] [place] [address] Hemoglobin (Bld) [Mass/Vol] 12.8 g/dL Normal 12.0-16.0 [facility] Comment on above: Performed By: #### 1 [id number] #### MARCUSShawn Kenyono [address] [place] [address] MCH (RBC) [Entitic mass] 30.9 pg Normal 27.0-31.0 [facility] Comment on above: Performed By: #### 1 [id number] #### MARCUSShawn WilcoxHemo [address] [place] [address] MCHC (RBC) [Mass/Vol] 34.1 g/dL Normal 33.0-37.0 [facility] Comment on above: Performed By: #### 1 [id number] #### MARCUS WilcoxHemo [facility] [place] [address] MCV (RBC) [Entitic vol] 90.6 fL Normal 78.0-100.0 [facility] Comment on above: Performed By: #### 1 [id number] #### MARCUS JeriHemo [facility] [place] [address] Platelet mean volume (Bld) [Entitic vol] 8.3 fL Normal 7.4-11.0 [facility] Comment on above: Performed By: #### 1 [id number] #### MARCUSShawn WilcoxHemo [facility] [place] [address] Platelets (Bld) [#/Vol] 113 E3/mcL Low 130-400 [facility] Comment on above: Performed By: #### 1 [id number] #### MARCUSShawn WilcoxHemo [address] [place] [address] RBC (Bld) [#/Vol] 4.14 E6/mcL Normal 3.90-5.40 [facility] Comment on above: Performed By: #### 1 [id number] #### MARCUS WilcoxHemo [facility] [place] [address] WBC (Bld) [#/Vol] 4.1 E3/mcL Normal 3.6-11.0 [facility] Comment on above: Performed By: #### 1 [id number] #### MARCUS JeriHemo [facility] [place] [address] Magnesiumon 03-22-2019 Magnesium [Mass/Vol] 1.6 mg/dL Normal 1.6-2.4 [facility] Comment on above: Performed By: #### 1 [id number] #### MARCUSShawn WilcoxHemo [facility] [place] [address] Troponin-Ion 03-22-2019 Troponin I.cardiac [Mass/Vol] 0.01 ng/mL Normal 0.00-0.03 [facility] Comment on above: Performed By: #### 1 [id number] #### MARCUS WilcoxHemo [address] [place] [address] XR Chest AP Portableon 03-22 XR Chest AP Portable Exam Date/Time: 03/22/2019 20:26 EDT Reason for Exam: Chest pain Report STUDY: XR Chest AP Portable; 03/22/2019 8:26 pm INDICATION: Chest pain. COMPARISON: 12/21/2018 ACCESSION NUMBER(S): [id number] ORDERING CLINICIAN: Xuan Garcia FINDINGS: Single portable [...] pm Signed by: Lacy Alvarez MD Technologist: [facility] Normal [facility] eGFRon 03-22-2019 GFR/1.73 sq M predicted among non-blacks MDRD (S/P/Bld) [Vol rate/Area] mL/min/{1.73_m2} Normal [facility] Comment on above: Order Comment: Order Added by Discern Expert. Performed By: #### 1 [id number] #### MARCUS WilcoxHemo [address] [place] [address] GFR/1.73 sq M predicted among non-blacks MDRD (S/P/Bld) [Vol rate/Area] 52 mL/min/1.73 m2 [facility] Comment on above: Order Comment: Order Added by Discern Expert. Performed By: #### 1 [id number] #### MARCUS RemHemo [address] [place] [address] UA Completeon 03-19-2019 Color (U) Yellow Normal Yellow [facility] Comment on above: Order Comment: Order Added by Discern Expert. Performed By: #### 1 [id number] #### MARCUS RemHemo [address] [place] [address] Glucose (U) [Mass/Vol] Negative Normal Negative [facility] Comment on above: Order Comment: Order Added by Discern Expert. Performed By: #### 1 [id number] #### MARCUS RemHemo [address] [place] [address] Ketones Ql (U) Negative Normal Negative [facility] Comment on above: Order Comment: Order Added by Discern Expert. Performed By: #### 1 [id number] #### MARCUS RemHemo [address] [place] [address] RBC (U) [#/Vol] 0-3 Normal 0-3 [facility] Comment on above: Order Comment: Order Added by Discern Expert. Performed By: #### 1 [id number] #### MARCUS RemHemo [address] [place] [address] UA Blood Negative Normal Negative [facility] Comment on above: Order Comment: Order Added by Discern Expert. Performed By: #### 1 [id number] #### MARCUS RemHemo [address] [place] [address] UA Clarity SltCloudy Abnormal Clear [facility] Comment on above: Order Comment: Order Added by Discern Expert. Performed By: #### 1 [id number] #### MARCUS RemHemo [address] [place] [address] UA Hyal Cast 3-5 Abnormal 0-2 [facility] Comment on above: Order Comment: Order Added by Discern Expert. Performed By: #### 1 [id number] #### MARCUS RemHemo [address] [place] [address] UA Leuk Est 1+ Abnormal Negative [facility] Comment on above: Order Comment: Order Added by Discern Expert. Performed By: #### 1 [id number] #### MARCUS RemHemo [address] [place] [address] UA Mucous Trace Abnormal Trace [facility] Comment on above: Order Comment: Order Added by Discern Expert. Performed By: #### 1 [id number] #### MARCUS RemHemo [address] [place] [address] UA Nitrite Negative Normal Negative [facility] Comment on above: Order Comment: Order Added by Discern Expert. Performed By: #### 1 [id number] #### MARCUS RemHemo [address] [place] [address] UA pH 5.0 Normal 4.6-8.0 [facility] Comment on above: Order Comment: Order Added by Discern Expert. Performed By: #### 1 [id number] #### MARCUS Kenyono [facility] [place] [id number] UA Protein Negative Normal Negative [facility] Comment on above: Order Comment: Order Added by Discern Expert. Performed By: #### 1 [id number] #### MARCUS WilcoxHemo [address] [place] [address] UA Spec Grav 1.010 Normal 1.003-1.030 [facility] Comment on above: Order Comment: Order Added by Discern Expert. Performed By: #### 1 [id number] #### MARCUS Kenyono [address] [place] [address] UA Squam Epithelial 10-20 Abnormal 0-5 [facility] Comment on above: Order Comment: Order Added by Discern Expert. Performed By: #### 1 [id number] #### MARUCS WilcoxHemo [address] [place] [address] UA Urobilinogen Negative Normal [facility] Comment on above: Order Comment: Order Added [...] within 24 hours. Performed By: #### 1 [id number] #### MARCUS WilcoxHemo [address] [place], [place] [id number] UA WBC 0-5 Normal 0-5 [facility] Comment on above: Order Comment: Order Added by Katya Expert. Performed By: #### 1 [id number] #### MARCUS Kenyono [facility] [place] [id number] Urobilinogen Qn (U) Negative Normal Negative [facility] Comment on above: Order Comment: Order Added by Katya Expert. Performed By: #### 1 [id number] #### MARCUS WilcoxHemo [facility] [place] [address] Auto Diffon 06-01-2019 Basophils (Bld) [#/Vol] 0.0 E3/mcL Normal 0.0-0.2 [facility] Comment on above: Order Comment: Order Added by Discern Expert. Performed By: #### 1 [id number] #### MARCUS RemHemo [address] [place] [address] Basophils/100 WBC (Bld) 0.5 % Normal 0.0-2.0 [facility] Comment on above: Order Comment: Order Added by Discern Expert. Performed By: #### 1 [id number] #### MARCUS RemHemo [address] [place] [address] Eos Absolute 0.1 E3/mcL Normal 0.0-0.7 [facility] Comment on above: Order Comment: Order Added by Discern Expert. Performed By: #### 1 [id number] #### MARCUS RemHemo [address] [place] [address] Eosinophils/100 WBC (Bld) 2.2 % Normal 0.0-11.0 [facility] Comment on above: Order Comment: Order Added by Discern Expert. Performed By: #### 1 [id number] #### MARCUS RemHemo [address] [place] [address] Lymphocytes (Bld) [#/Vol] 1.3 E3/mcL Normal 1.2-3.4 [facility] Comment on above: Order Comment: Order Added by Katya Expert. Performed By: #### 1 [id number] #### MARCUS RemHemo [address] [place] [address] 57473 Lymphocytes/100 WBC (Bld) 30.1 % Normal 20.0-55.0 [facility] Comment on above: Order Comment: Order Added by Katya Expert. Performed By: #### 1 [id number] #### MARCUS RemHemo [address] [place] [address]702 Gentry Absolute 0.4 E3/mcL Normal 0.0-0.7 [facility] Comment on above: Order Comment: Order Added by Katya Expert. Performed By: #### 1 [id number] #### MARCUS RemHemo [address] [place] [address] Monocytes/100 WBC (Bld) 9.9 % Normal 0.0-10.0 [facility] Comment on above: Order Comment: Order Added by Discern Expert. Performed By: #### 1 [id number] #### MARCUS WilcoxHemo [address] [place] [address] Neutro Absolute 2.5 E3/mcL Normal 1.4-6.5 [facility] Comment on above: Order Comment: Order Added by Discern Expert. Performed By: #### 1 [id number] #### MARCUS WilcoxHemo [address] [place] [address] Neutro Auto 57.3 % Normal 37.0-75.0 [facility] Comment on above: Order Comment: Order Added by Discern Expert. Performed By: #### 1 [id number] #### MARCUS WilcoxHemo [address] [place] [address] BMPon 03-18-2019 Anion gap [Moles/Vol] 11 mmol/L Normal 10-20 [facility] Comment on above: Performed By: #### 1 [id number] #### MARCUS WilcoxHemo [address] [place] [address] Calcium [Mass/Vol] 8.8 mg/dL Normal 8.6-10.3 [facility] Comment on above: Performed By: #### 1 [id number] #### MARCUS WilcoxHemo [address] [place] [address] Chloride [Moles/Vol] 110 mmol/L High 98-107 [facility] Comment on above: Performed By: #### 1 [id number] #### MARCUS RemHemo [address] [place] [address] CO2 [Moles/Vol] 20.0 mmol/L Low 21.0-32.0 [facility] Comment on above: Performed By: #### 1 [id number] #### MARCUS RemHemo [address] [place] [address] Creatinine [Mass/Vol] 1.2 mg/dL High 0.5-1.1 [facility] Comment on above: Performed By: #### 1 [id number] #### MARCUS RemHemo [address] [place] [address] Glucose [Mass/Vol] 90 mg/dL Normal 70-99 [facility] Comment on above: Performed By: #### 1 [id number] #### MARCUS RemHemo [address] [place] [address] Potassium [Moles/Vol] 4.0 mmol/L Normal 3.5-5.3 [facility] Comment on above: Performed By: #### 1 [id number] #### MARCUS RemHemo [address] [place] [address] Sodium [Moles/Vol] 137 mmol/L Normal 136-145 [facility] Comment on above: Performed By: #### 1 [id number] #### MARCUS RemHemo [address] [place] [address] Urea nitrogen [Mass/Vol] 9 mg/dL Normal 6-23 [facility] Comment on above: Performed By: #### 1 [id number] #### MARCUS RemHemo [address] [place] [address] Urea nitrogen/Creatinine [Mass ratio] 7.5 ratio Normal 5.4-30.0 [facility] Comment on above: Performed By: #### 1 [id number] #### MARCUS RemHemo [address] [place] [address] CBC w/ Auto Diffon 9 Erythrocyte distribution width (RBC) [Ratio] 14.1 % Normal 11.5-14.5 [facility] Comment on above: Performed By: #### 1 [id number] #### MARCUS RemHemo [address] [place] [address] Hematocrit (Bld) [Volume fraction] 40.4 % Normal 36.0-48.0 [facility] Comment on above: Performed By: #### 1 [id number] #### MARCUS RemHemo [address] [place] [address] Hemoglobin (Bld) [Mass/Vol] 13.4 g/dL Normal 12.0-16.0 [facility] Comment on above: Performed By: #### 1 [id number] #### MARCUS RemHemo [address] [place] [address] MCH (RBC) [Entitic mass] 30.2 pg Normal 27.0-31.0 [facility] Comment on above: Performed By: #### 1 [id number] #### MARCUS RemHemo [address] [place] [address] MCHC (RBC) [Mass/Vol] 33.1 g/dL Normal 33.0-37.0 [facility] Comment on above: Performed By: #### 1 [id number] #### MARCUS RemHemo [address] [place] [address] MCV (RBC) [Entitic vol] 91.3 fL Normal 78.0-100.0 [facility] Comment on above: Performed By: #### 1 [id number] #### MARCUS RemHemo [address] [place] [address] Platelet mean volume (Bld) [Entitic vol] 8.0 fL Normal 7.4-11.0 [facility] Comment on above: Performed By: #### 1 [id number] #### MARCUS RemHemo [address] [place] [address] Platelets (Bld) [#/Vol] 123 E3/mcL Low 130-400 [facility] Comment on above: Performed By: #### 1 [id number] #### MARCUS RemHemo [address] [place] [address] RBC (Bld) [#/Vol] 4.43 E6/mcL Normal 3.90-5.40 [facility] Comment on above: Performed By: #### 1 [id number] #### MARCUS RemHemo [address] [place] [address] WBC (Bld) [#/Vol] 4.3 E3/mcL Normal 3.6-11.0 [facility] Comment on above: Performed By: #### 1 [id number] #### MARCUS RemHemo [address] [place] [address] CT Head or Brain w/o Contras ton 03-18-2019 CT Head or Brain w/o Contrast Exam Date/Time: 03/18/2019 21:34 EDT Reason for Exam: Altered mental status Report STUDY: CT Head or Brain w/o Contrast; 03/18/2019 9:34 pm INDICATION: Altered mental status. COMPARISON: 03/16/2019 ACCESSION NUMBER(S): [id number] ORDERING CLINICIAN: Ac Gao TECHNIQUE: Noncontrast CT [...] Signed by: Nicole Anderson MD Technologist: AM [facility] Ionized Calcium Lvlon 2018 Ionized Ca. 4.5 mg/dL Normal 4.5-5.6 [facility] Comment on above: Performed By: #### 1 [id number] #### MARCUS RemHemo [address] [place] [address] Ionized Calcium POC Orderon 03-18-2019 Ionized Calcium POC Order Collected [facility] Comment on above: Performed By: #### 1 [id number] #### MARCUS RemHemo [address] [place] [id number] eGFRon 03-18-2019 GFR/1.73 sq M predicted among non-blacks MDRD (S/P/Bld) [Vol rate/Area] 56 mL/min/1.73 m2 [facility] Comment on above: Order Comment: Order Added by Discern Expert. Performed By: #### 1 [id number] #### MARCUS RemHemo [address] [place] [id number] GFR/1.73 sq M predicted among non-blacks MDRD (S/P/Bld) [Vol rate/Area] 46 mL/min/1.73 m2 [facility] Comment on above: Order Comment: Order Added by Discern Expert. Performed By: #### 1 [id number] #### MARCUS RemHemo [address] [place] [address] Auto Diffon 03-16-2019 Basophils (Bld) [#/Vol] 0.0 E3/mcL Normal 0.0-0.2 [facility] Comment on above: Order Comment: Order Added by Discern Expert. Performed By: #### 1 [id number] #### MARCUS WilcoxHemo [address] [place] [address] 65591 Basophils/100 WBC (Bld) 0.9 % Normal 0.0-2.0 [facility] Comment on above: Order Comment: Order Added by Discern Expert. Performed By: #### 1 [id number] #### MARCUS RemHemo [address] [place] [address] Eos Absolute 0.1 E3/mcL Normal 0.0-0.7 [facility] Comment on above: Order Comment: Order Added by Discern Expert. Performed By: #### 1 [id number] #### [facility] [address] [place] [address] Eosinophils/100 WBC (Bld) 2.6 % Normal 0.0-11.0 [facility] Comment on above: Order Comment: Order Added by Discern Expert. Performed By: #### 1 [id number] #### MARCUS RemHemo [address] [place] [address] Lymphocytes (Bld) [#/Vol] 1.0 E3/mcL Low 1.2-3.4 [facility] Comment on above: Order Comment: Order Added by Discern Expert. Performed By: #### 1 [id number] #### MARCUS RemHemo [address] [place] [address] Lymphocytes/100 WBC (Bld) 23.0 % Normal 20.0-55.0 [facility] Comment on above: Order Comment: Order Added by Discern Expert. Performed By: #### 1 [id number] #### MARCUS RemHemo [address] [place] [address] Gentry Absolute 0.3 E3/mcL Normal 0.0-0.7 [facility] Comment on above: Order Comment: Order Added by Discern Expert. Performed By: #### 1 [id number] #### MARCUS RemHemo [address] [place] [address] 96686 Monocytes/100 WBC (Bld) 6.8 % Normal 0.0-10.0 [facility] Comment on above: Order Comment: Order Added by Discern Expert. Performed By: #### 1 [id number] #### MARCUS WilcoxHemo [address] [place] [address] Neutro Absolute 2.9 E3/mcL Normal 1.4-6.5 [facility] Comment on above: Order Comment: Order Added by Discern Expert. Performed By: #### 1 [id number] #### MARCUS RemHemo [facility] [place] [address] Neutro Auto 66.7 % Normal 37.0-75.0 [facility] Comment on above: Order Comment: Order Added by Discern Expert. Performed By: #### 1 [id number] #### MARCUS WilcoxHemo [address] [place] [address] B12/Folateon 03-16-2019 Cobalamin (Vitamin B12) mass conc 354 pg/mL 193 - 986 pg/mL [facility] Folate mass conc 6.9 ng/mL 3.1 - 17.5 ng/mL [facility] Comment on above: Deficient <2.2 Borderline 2.2 - 3.0 Excessive >17.5 Interpretation and review of laboratory results Normal [facility] CBC w/ Auto Diffon 9 Erythrocyte distribution width (RBC) [Ratio] 13.9 % Normal 11.5-14.5 [facility] Comment on above: Performed By: #### 1 [id number] #### MARCUS WilcoxHemo [address] [place] [address] Hematocrit (Bld) [Volume fraction] 40.6 % Normal 36.0-48.0 [facility] Comment on above: Performed By: #### 1 [id number] #### MARCUS RemHemo [facility] [place] [address] Hemoglobin (Bld) [Mass/Vol] 13.5 g/dL Normal 12.0-16.0 [facility] Comment on above: Performed By: #### 1 [id number] #### MARCUS RemHemo [facility] [place] [address] MCH (RBC) [Entitic mass] 30.4 pg Normal 27.0-31.0 [facility] Comment on above: Performed By: #### 1 [id number] #### MARCUS RemHemo [address] [place] [address] MCHC (RBC) [Mass/Vol] 33.3 g/dL Normal 33.0-37.0 [facility] Comment on above: Performed By: #### 1 [id number] #### MARCUS RemHemo [address] [place] [address] MCV (RBC) [Entitic vol] 91.4 fL Normal 78.0-100.0 [facility] Comment on above: Performed By: #### 1 [id number] #### MARCUS RemHemo [address] [place] [address] Platelet mean volume (Bld) [Entitic vol] 8.3 fL Normal 7.4-11.0 [facility] Comment on above: Performed By: #### 1 [id number] #### MARCUS RemHemo [facility] [place] [address] Platelets (Bld) [#/Vol] 118 E3/mcL Low 130-400 [facility] Comment on above: Performed By: #### 1 [id number] #### MARCUS RemHemo [address] [place] [address] RBC (Bld) [#/Vol] 4.45 E6/mcL Normal 3.90-5.40 [facility] Comment on above: Performed By: #### 1 [id number] #### MARCUS RemHemo [address] [place] [address] WBC (Bld) [#/Vol] 4.4 E3/mcL Normal 3.6-11.0 [facility] Comment on above: Performed By: #### 1 [id number] #### MARCUS RemHemo [address] [place] [address] CMPon 03-16-2019 Albumin [Mass/Vol] 4.2 g/dL Normal 3.4-5.0 [facility] Comment on above: Performed By: #### 1 [id number] #### MARCUS RemHemo [address] [place] [address] Albumin/Globulin [Mass ratio] 1.7 {ratio} Normal 1.1-1.9 [facility] Comment on above: Performed By: #### 1 [id number] #### MARCUS RemHemo [address] [place] [address] Alk Phos 104 Int._Unit/L Normal 33-110 [facility] Comment on above: Performed By: #### 1 [id number] #### MARCUS RemHemo [address] [place] [address] ALT [Catalytic activity/Vol] 31 Int._Unit/L Normal 7-45 [facility] Comment on above: Performed By: #### 1 [id number] #### MARCUS RemHemo [address] [place] [address] Anion gap [Moles/Vol] 12 mmol/L Normal 10-20 [facility] Comment on above: Performed By: #### 1 [id number] #### MARCUSShawn WilcoxHemo [address] [place] [address] AST [Catalytic activity/Vol] 37 Int._Unit/L Normal 9-39 [facility] Comment on above: Performed By: #### 1 [id number] #### MARCUS RemHemo [address] [place] [address]24[address] Bili Total 0.79 mg/dL Normal 0.00-1.20 [facility] Comment on above: Performed By: #### 1 [id number] #### MARCUS RemHemo [address] [place] [address] Calcium [Mass/Vol] 8.8 mg/dL Normal 8.6-10.3 [facility] Comment on above: Performed By: #### 1 [id number] #### MARCUS RemHemo [address] [place] [address] Chloride [Moles/Vol] 110 mmol/L High 98-107 [facility] Comment on above: Performed By: #### 1 [id number] #### MARCUS RemHemo [address] [place] [address] CO2 [Moles/Vol] 20.0 mmol/L Low 21.0-32.0 [facility] Comment on above: Performed By: #### 1 [id number] #### MARCUS RemHemo [address] [place] [address] Creatinine [Mass/Vol] 1.2 mg/dL High 0.5-1.1 [facility] Comment on above: Performed By: #### 1 [id number] #### MARCUS WilcoxHemo [address] [place] [address] Globulin (S) [Mass/Vol] 3.0 g/dL Normal 2.0-4.0 [facility] Comment on above: Performed By: #### 1 [id number] #### MARCUS WilcoxHemo [address] [place] [address] Glucose [Mass/Vol] 114 mg/dL High 70-99 [facility] Comment on above: Performed By: #### 1 [id number] #### MARCUS WilcoxHemo [address] [place] [address] Potassium [Moles/Vol] 3.4 mmol/L Low 3.5-5.3 [facility] Comment on above: Performed By: #### 1 [id number] #### MARCUS WilcoxHemo [address] [place] [address] Protein [Mass/Vol] 6.7 g/dL Normal 6.4-8.2 [facility] Comment on above: Performed By: #### 1 [id number] #### MARCUS WilcoxHemo [address] [place] [address] Sodium [Moles/Vol] 139 mmol/L Normal 136-145 [facility] Comment on above: Performed By: #### 1 [id number] #### MARCUS WilcoxHemo [address] [place] [address] Urea nitrogen [Mass/Vol] 9 mg/dL Normal 6-23 [facility] Comment on above: Performed By: #### 1 [id number] #### MARCUS RemHemo [address] [place] [address] Urea nitrogen/Creatinine [Mass ratio] 7.5 ratio Normal 5.4-30.0 [facility] Comment on above: Performed By: #### 1 [id number] #### MARCUS RemHemo [address] [place] [address] CT COMPARISON IMPORTon 03-16 This order has been auto-finalized and does not contain a result. [facility] This order has been auto-finalized and does not contain a result. [facility] CT Head or Brain w/o Contras ton 03-16-2019 CT Head or Brain w/o Contrast Exam Date/Time: 03/16/2019 00:08 EDT Reason for Exam: Injury Report STUDY: CT Head or Brain w/o Contrast; 03/16/2019 12:46 am INDICATION: Injury. COMPARISON: 12/01/2018 ACCESSION NUMBER(S): [id number] ORDERING CLINICIAN: Caren Gilman TECHNIQUE: Noncontrast CT [...] Signed by: Nicole Anderson MD Technologist: TAMIKO [facility] CT Spine Cervical w/o Contra ston 03-16-2019 CT Spine Cervical w/o Contrast Exam Date/Time: 03/16/2019 00:08 EDT Reason for Exam: Trauma Report STUDY: CT Spine Cervical w/o Contrast; 03/16/2019 12:46 am INDICATION: Trauma. COMPARISON: None. ACCESSION NUMBER(S): [id number] ORDERING CLINICIAN: Caren Gilman TECHNIQUE: Axial noncontrast [...] Nicole Anderson MD Technologist: TAMIKO [place] [facility] Lactic Acidon 03-16-2019 Lactate [Moles/Vol] 1.2 mmol/L Normal 0.4-2.0 [facility] Comment on above: Performed By: #### 1 [id number] #### MARCUS RemHemo [address] [place] [address] Otheron 03-16-2019 Aleksey Bhardwaj MD 03/16/2019 4:19 PM [facility] EEG Report Reason for EEG: Seizures. Summary: [...] epileptiform discharges or ictal activity was seen. [facility] POC Glucoseon 03-16-2019 Glucose mass conc 84 mg/dL 65 - 99 mg/dL [facility] Interpretation and review of laboratory results Normal [facility] TSH with Reflex Free T4on Interpretation and review of laboratory results Normal [facility] Thyrotropin Qn 2.12 m[IU]/L [facility] Valproic Acid Levelon 2018 Interpretation and review of laboratory results Abnormal [facility] Valproate mass conc ug/mL Low [facility] ealth eGFRon 03-16-2019 GFR/1.73 sq M predicted among non-blacks MDRD (S/P/Bld) [Vol rate/Area] 58 mL/min/1.73 m2 Normal [facility] Comment on above: Order Comment: Order Added by Discern Expert. Performed By: #### 1 [id number] #### MARCUS RemHemo [address] [place] [address] GFR/1.73 sq M predicted among non-blacks MDRD (S/P/Bld) [Vol rate/Area] 48 mL/min/1.73 m2 Normal [facility] Comment on above: Order Comment: Order Added by Discern Expert. Performed By: #### 1 [id number] #### MARCUS [address] [address] Auto Diffon 03-11-2019 Basophils (Bld) [#/Vol] 0.0 E3/mcL Normal 0.0-0.2 [facility] Comment on above: Order Comment: Order Added by Discern Expert. Performed By: #### 1 [id number] #### MARCUS WilcoxHemo [address] [place] [address] Basophils/100 WBC (Bld) 0.3 % Normal 0.0-2.0 [facility] Comment on above: Order Comment: Order Added by Discern Expert. Performed By: #### 1 [id number] #### MARCUS WilcoxHemo [address] [place] [address] Eos Absolute 0.1 E3/mcL Normal 0.0-0.7 [facility] Comment on above: Order Comment: Order Added by Discern Expert. Performed By: #### 1 [id number] #### MARCUS Kenyono [address] [place] [address] Eosinophils/100 WBC (Bld) 3.7 % Normal 0.0-11.0 [facility] Comment on above: Order Comment: Order Added by Discern Expert. Performed By: #### 1 [id number] #### MARCUS WilcoxHemo [address] [place] [address] Lymphocytes (Bld) [#/Vol] 1.0 E3/mcL Low 1.2-3.4 [facility] Comment on above: Order Comment: Order Added by Discern Expert. Performed By: #### 1 [id number] #### MARCUS WilcoxHemo [address] [place] [address] Lymphocytes/100 WBC (Bld) 28.2 % Normal 20.0-55.0 [facility] Comment on above: Order Comment: Order Added by Discern Expert. Performed By: #### 1 [id number] #### MARCUS RemHemo [address] [place] [address] Gentry Absolute 0.3 E3/mcL Normal 0.0-0.7 [facility] Comment on above: Order Comment: Order Added by Discern Expert. Performed By: #### 1 [id number] #### MARCUS WilcoxHemo [address] [place] [address] Monocytes/100 WBC (Bld) 8.9 % Normal 0.0-10.0 [facility] Comment on above: Order Comment: Order Added by Discern Expert. Performed By: #### 1 [id number] #### MARCUS RemHemo [address] [place] [address] Neutro Absolute 2.1 E3/mcL Normal 1.4-6.5 [facility] Comment on above: Order Comment: Order Added by Discern Expert. Performed By: #### 1 [id number] #### MARCUS RemHemo [address] [place] [address] Neutro Auto 58.9 % Normal 37.0-75.0 [facility] Comment on above: Order Comment: Order Added by Discern Expert. Performed By: #### 1 [id number] #### MARCUS RemHemo [address] [place] [address] BMPon 03-11-2019 Anion gap [Moles/Vol] 11 mmol/L Normal 10-20 [facility] Comment on above: Performed By: #### 1 [id number] #### MARCUS RemHemo [address] [place] [address] Calcium [Mass/Vol] 8.4 mg/dL Low 8.6-10.3 [facility] Comment on above: Performed By: #### 1 [id number] #### MARCUS RemHemo [address] [place] [address] Chloride [Moles/Vol] 110 mmol/L High 98-107 [facility] Comment on above: Performed By: #### 1 [id number] #### MARCUS RemHemo [address] [place] [address] CO2 [Moles/Vol] 19.0 mmol/L Low 21.0-32.0 [facility] Comment on above: Performed By: #### 1 [id number] #### MARCUS WilcoxHemo [address] [place] [address] Creatinine [Mass/Vol] 1.2 mg/dL High 0.5-1.1 [facility] Comment on above: Performed By: #### 1 [id number] #### MARCUS WilcoxHemo [address] [place] [address] Glucose [Mass/Vol] 88 mg/dL Normal 70-99 [facility] Comment on above: Performed By: #### 1 [id number] #### MARCUS WilcoxHemo [address] [place] [address] Potassium [Moles/Vol] 3.8 mmol/L Normal 3.5-5.3 [facility] Comment on above: Performed By: #### 1 [id number] #### MARCUS WilcoxHemo [address] [place] [address] Sodium [Moles/Vol] 136 mmol/L Normal 136-145 [facility] Comment on above: Performed By: #### 1 [id number] #### MARCUS WilcoxHemo [address] [place] [address] Urea nitrogen [Mass/Vol] 12 mg/dL Normal 6-23 [facility] Comment on above: Performed By: #### 1 [id number] #### MARCUS WilcoxHemo [address] [place] [address] Urea nitrogen/Creatinine [Mass ratio] 10.0 ratio Normal 5.4-30.0 [facility] Comment on above: Performed By: #### 1 [id number] #### MARCUS WilcoxHemo [address] [place] [address] CBC w/ Auto Diffon 9 Erythrocyte distribution width (RBC) [Ratio] 13.9 % Normal 11.5-14.5 [facility] Comment on above: Performed By: #### 1 [id number] #### MARCUSShawn WilcoxHemo [address] [place] [address] Hematocrit (Bld) [Volume fraction] 37.4 % Normal 36.0-48.0 [facility] Comment on above: Performed By: #### 1 [id number] #### MARCUS WilcoxHemo [address] [place] [address] Hemoglobin (Bld) [Mass/Vol] 12.4 g/dL Normal 12.0-16.0 [facility] Comment on above: Performed By: #### 1 [id number] #### MARCUS RemHemo [address] [place] [address] MCH (RBC) [Entitic mass] 30.2 pg Normal 27.0-31.0 [facility] Comment on above: Performed By: #### 1 [id number] #### MARCUS RemHemo [facility] [place] [address] MCHC (RBC) [Mass/Vol] 33.1 g/dL Normal 33.0-37.0 [facility] Comment on above: Performed By: #### 1 [id number] #### MARCUS WilcoxHemo [address] [place] [address] MCV (RBC) [Entitic vol] 91.2 fL Normal 78.0-100.0 [facility] Comment on above: Performed By: #### 1 [id number] #### MARCUS WilcoxHemo [address] [place] [address] Platelet mean volume (Bld) [Entitic vol] 8.1 fL Normal 7.4-11.0 [facility] Comment on above: Performed By: #### 1 [id number] #### MARCUS RemHemo [address] [place] [address] Platelets (Bld) [#/Vol] 120 E3/mcL Low 130-400 [facility] Comment on above: Performed By: #### 1 [id number] #### MARCUS RemHemo [facility] [place] [address] RBC (Bld) [#/Vol] 4.11 E6/mcL Normal 3.90-5.40 [facility] Comment on above: Performed By: #### 1 [id number] #### MARCUS RemHemo [address] [place] [address] WBC (Bld) [#/Vol] 3.6 E3/mcL Normal 3.6-11.0 [facility] Comment on above: Performed By: #### 1 [id number] #### MARCUS Kenyono [address] [place] [address] Troponin-Ion 03-11-2019 Troponin I.cardiac [Mass/Vol] 0.01 ng/mL Normal 0.00-0.03 [facility] Comment on above: Performed By: #### 1 [id number] #### MARCUS Kenyono [address] [place] [address] UA Completeon 03-11-2019 Color (U) Yellow Normal [facility] Comment on above: Performed By: #### 1 [id number] #### MARCUSShawn WilcoxHemo [address] [place] [address] Glucose (U) [Mass/Vol] Negative Normal Negative [facility] Comment on above: Performed By: #### 1 [id number] #### MARCUSShawn WilcoxHemo [address] [place] [address] Ketones Ql (U) Negative Normal Negative [facility] Comment on above: Performed By: #### 1 [id number] #### MARCUSShawn Kenyono [address] [place] [address] RBC (U) [#/Vol] 0-3 Normal 0-3 [facility] Comment on above: Performed By: #### 1 [id number] #### MARCUSShawn WilcoxHemo [address] [place] [address] UA Blood Negative Normal Negative [facility] Comment on above: Performed By: #### 1 [id number] #### MARCUSShawn WilcoxHemo [address] [place] [address] UA Bacteria Trace Abnormal None [facility] Comment on above: Performed By: #### 1 [id number] #### MARCUSShawn WilcoxHemo [address] [place] [address] UA Clarity Clear Normal Clear [facility] Comment on above: Performed By: #### 1 [id number] #### MARCUSShawn WilcoxHemo [address] [place] [address] UA Leuk Est Negative Normal Negative [facility] Comment on above: Performed By: #### 1 [id number] #### MARCUSShawn WilcoxHemo [facility] [place] [id number] UA Mucous Trace Abnormal Trace [facility] Comment on above: Performed By: #### 1 [id number] #### MARCUS WilcoxHemo [address] [place] [address] UA Nitrite Negative Normal Negative [facility] Comment on above: Performed By: #### 1 [id number] #### MARCUS WilcoxHemo [address] [place] [address] UA pH 5.0 Normal 4.6-8.0 [facility] Comment on above: Performed By: #### 1 [id number] #### MARCUS WilcoxHemo [address] [place] [address] UA Protein Negative Normal Negative [facility] Comment on above: Performed By: #### 1 [id number] #### MARCUSShawn WilcoxHemo [facility] [place] [address] UA Spec Grav 1.012 Normal 1.003-1.030 [facility] Comment on above: Performed By: #### 1 [id number] #### MARCUS WilcoxHemo [address] [place] [address] UA Squam Epithelial 10-20 Abnormal 0-5 [facility] Comment on above: Performed By: #### 1 [id number] #### MARCUS WilcoxHemo [address] [place] [address] UA Urobilinogen Negative Normal [facility] Comment on above: Result Comment: Due to a manufacturing issue, low positive urobilinogen results may be fasely positive. Correlate with urine bilirubin and additional clinical/laboratory findings to assess the risk of hemolytic anemia or liver disease. If clinically indicated, repeat testing with an alternate method is available by contacting the laboratory within 24 hours. Performed By: #### 1 [id number] #### MARCUS WilcoxHemo [address] [place] [address] UA WBC 0-5 Normal 0-5 [facility] Comment on above: Performed By: #### 1 [id number] #### MARCUSShawn WilcoxHemo [facility] [place] [address] Urobilinogen Qn (U) Negative Normal Negative [facility] Comment on above: Performed By: #### 1 [id number] #### MARCUSShawn WilcoxHemo [address] [place] [address] eGFRon 03-11-2019 GFR/1.73 sq M predicted among non-blacks MDRD (S/P/Bld) [Vol rate/Area] 58 mL/min/1.73 m2 [facility] Comment on above: Order Comment: Order Added by Discern Expert. Performed By: #### 1 [id number] #### MARCUS RemHemo [address] [place] [address] GFR/1.73 sq M predicted among non-blacks MDRD (S/P/Bld) [Vol rate/Area] 48 mL/min/1.73 m2 [facility] Comment on above: Order Comment: Order Added by Discern Expert. Performed By: #### 1 [id number] #### MARCUS RemHemo [address] [place] [id number] Ammoniaon 03-08-2019 Ammonia mass conc (P) 30 ug/dL [facility] Interpretation and review of laboratory results Normal [facility] Comprehensive Metabolic Pane rock 03-08-2019 Albumin mass conc 3.6 g/dL 3.2 - 5.2 g/dL [facility] ALP enzyme act/vol 99 U/L 40 - 150 U/L [facility] ALT enzyme act/vol 31 U/L 14 - 65 U/L [facility]alth Anion gap molar conc 12 mmol/L 10 - 20 mmol/L [facility] AST enzyme act/vol 29 U/L 0 - 45 U/L [facility] Bilirubin mass conc 0.6 mg/dL 0 - 1.3 mg/dL [facility] Calcium mass conc 8.4 mg/dL 8.4 - 10.2 mg/dL [facility] Chloride molar conc 114 mmol/L High 98 - 108 mmol/L [facility] Creatinine mass conc 1.31 mg/dL High 0.4 - 1 .1 mg/dL [facility] GFR/1.73 sq M predicted among non-blacks MDRD vol rate/area (S/P/Bld) The eGFR should be used for monitoring renal function only and not for medication dosing. [facility] GFR/1.73 sq M.predicted CKD-EPI vol rate/area (S/P/Bld) 49 Low >=60 mL/min/1.73 m2 [facility] Glucose mass conc 94 mg/dL 65 - 99 mg/dL [facility] HCO3 molar conc 20 mmol/L Low 21 - 32 mmol/L [facility] Potassium molar conc 4.1 mmol/L 3.5 - 5 .1 mmol/L [facility] Protein mass conc 7.2 g/dL 6 - 8 g/dL [facility] Sodium molar conc 142 mmol/L 135 - 145 mmol/L [facility] Urea nitrogen mass conc 16 mg/dL 8 - 25 mg/dL [facility] Urea nitrogen/Creatinine mass ratio 12.2 mg/mg [facility] Otheron 03-08-2019 Interpretation and review of laboratory results Abnormal [facility] TSH with Reflex Free T4on Interpretation and review of laboratory results Normal [facility] Thyrotropin Qn 2.54 m[IU]/L [facility] Valproic Acid Levelon 2018 Valproate mass conc 4 ug/mL Low [facility] ealth BMPon 02-24-2019 Anion gap [Moles/Vol] 12 mmol/L Normal 10-20 [facility] Comment on above: Performed By: #### 1 [id number] #### MARCUS RemHemo [address] [place] [address] Calcium [Mass/Vol] 8.9 mg/dL Normal 8.6-10.3 [facility] Comment on above: Performed By: #### 1 [id number] #### MARCUS RemHemo [address] [place] [address] Chloride [Moles/Vol] 110 mmol/L High 98-107 [facility] Comment on above: Performed By: #### 1 [id number] #### MARCUS RemHemo [address] [place] [address] CO2 [Moles/Vol] 21.0 mmol/L Normal 21.0-32.0 [facility] Comment on above: Performed By: #### 1 [id number] #### MARCUS RemHemo [address] [place] [address] Creatinine [Mass/Vol] 1.3 mg/dL High 0.5-1.1 [facility] Comment on above: Performed By: #### 1 [id number] #### MARCUS RemHemo [address] [place] [address] Glucose [Mass/Vol] 89 mg/dL Normal 70-99 [facility] Comment on above: Performed By: #### 1 [id number] #### MARCUS RemHemo [address] [place] [address] Potassium [Moles/Vol] 4.5 mmol/L Normal 3.5-5.3 [facility] Comment on above: Performed By: #### 1 [id number] #### MARCUS Kenyono [facility] [place] [address] Sodium [Moles/Vol] 138 mmol/L Normal 136-145 [facility] Comment on above: Performed By: #### 1 [id number] #### MARCUS Kenyono [address] [place] [address] Urea nitrogen [Mass/Vol] 15 mg/dL Normal 6-23 [facility] Comment on above: Performed By: #### 1 [id number] #### MARCUS Kenyono [facility] [place] [address] Urea nitrogen/Creatinine [Mass ratio] 11.5 ratio Normal 5.4-30.0 [facility] Comment on above: Performed By: #### 1 [id number] #### MARCUS Kenyono [address] [place] [address] eGFRon 02-24-2019 GFR/1.73 sq M predicted among non-blacks MDRD (S/P/Bld) [Vol rate/Area] 43 mL/min/1.73 m2 [facility] Comment on above: Order Comment: Order Added by Discern Expert. Performed By: #### 1 [id number] #### MARCUS Kenyono [address] [place] [address] GFR/1.73 sq M predicted among non-blacks MDRD (S/P/Bld) [Vol rate/Area] 52 mL/min/1.73 m2 [facility] Comment on above: Order Comment: Order Added by Discern Expert. Performed By: #### 1 [id number] #### MARCUS WilcoxHemo [facility] [place] [address] .Manual Abson 02-23-2019 Basophil Abs Man 0.0 10x3/ Normal 0.0-0.2 [facility] Comment on above: Order Comment: Order Added by Discern Expert. Performed By: #### 1 [id number] #### MARCUS WilcoxHemo [facility] [place] [address] Eos Abs Man 0.0 10x3/ Normal 0.0-0.5 [facility] Comment on above: Order Comment: Order Added by Discern Expert. Performed By: #### 1 [id number] #### MARCUS Kenyono [facility] [place] [address] Lymph Abs Man 0.8 10x3/ Low 1.2-3.4 [facility] Comment on above: Order Comment: Order Added by Discern Expert. Performed By: #### 1 [id number] #### MARCUS Kenyono [facility] [place] [address] Gentry Abs Man 0.3 10x3/ Normal 0.0-0.7 [facility] Comment on above: Order Comment: Order Added by Discern Expert. Performed By: #### 1 [id number] #### MARCUS Kenyono [facility] [place] [address] Segs Abs Man 1.0 10x3/ Low 1.4-6.5 [facility] Comment on above: Order Comment: Order Added by Discern Expert. Performed By: #### 1 [id number] #### MARCUS Kenyoncorky [facility] [place] [address] Ammoniaon 02-23-2019 Ammonia (P) [Mass/Vol] 53 mcmol/L Normal 16-53 [facility] Comment on above: Performed By: #### 1 [id number] #### MARCUS Kenyoncorky [facility] [place] [address] C Urineon 02-23-2019 C Urine Final Report: Rare Normal skin joe isolated Normal [facility] Comment on above: Performed By: #### 1 [id number] #### MARCUS Kenyoncorky [facility] [place] [address] CBC w/ Auto Diffon 9 Erythrocyte distribution width (RBC) [Ratio] 14.7 % High 11.5-14.5 [facility] Comment on above: Performed By: #### 1 [id number] #### MARCUS Kenyoncorky [facility] [place] [id number] Hematocrit (Bld) [Volume fraction] 35.2 % Low 36.0-48.0 [facility] Comment on above: Performed By: #### 1 [id number] #### MARCUS RemHemo [address] [place] [address] Hemoglobin (Bld) [Mass/Vol] 11.7 g/dL Low 12.0-16.0 [facility] Comment on above: Performed By: #### 1 [id number] #### MARCUS RemHemo [address] [place] [address] MCH (RBC) [Entitic mass] 31.2 pg High 27.0-31.0 [facility] Comment on above: Performed By: #### 1 [id number] #### MARCUS RemHemo [facility] [place] [address] MCHC (RBC) [Mass/Vol] 33.2 g/dL Normal 33.0-37.0 [facility] Comment on above: Performed By: #### 1 [id number] #### MARCUS RemHemo [address] [place] [address] MCV (RBC) [Entitic vol] 93.8 fL Normal 78.0-100.0 [facility] Comment on above: Performed By: #### 1 [id number] #### MARCUS RemHemo [address] [place] [address] Platelet mean volume (Bld) [Entitic vol] 7.6 fL Normal 7.4-11.0 [facility] Comment on above: Performed By: #### 1 [id number] #### MARCUS RemHemo [address] [place] [address] Platelets (Bld) [#/Vol] 56 E3/mcL Low 130-400 [facility] Comment on above: Performed By: #### 1 [id number] #### MARCUS RemHemo [facility] [place] [address] RBC (Bld) [#/Vol] 3.75 E6/mcL Low 3.90-5.40 [facility] Comment on above: Performed By: #### 1 [id number] #### MARCUS RemHemo [address] [place] [address] WBC (Bld) [#/Vol] 2.4 E3/mcL Low 3.6-11.0 [facility] Comment on above: Performed By: #### 1 [id number] #### MARCUS Kenyono [address] [place] [address] CMPon 02-23-2019 Albumin [Mass/Vol] 3.3 g/dL Low 3.4-5.0 [facility] Comment on above: Performed By: #### 1 [id number] #### MARCUS Kenyono [address] [place] [address] Albumin/Globulin [Mass ratio] 1.5 {ratio} Normal 1.1-1.9 [facility] Comment on above: Performed By: #### 1 [id number] #### MARCUS WilcoxHemo [address] [place] [address] Alk Phos 57 Int._Unit/L Normal 33-110 [facility] Comment on above: Performed By: #### 1 [id number] #### MARCUS Kenyono [facility] [place] [address] ALT [Catalytic activity/Vol] 12 Int._Unit/L Normal 7-45 [facility] Comment on above: Performed By: #### 1 [id number] #### MARCUS Kenyono [address] [place] [address] Anion gap [Moles/Vol] 10 mmol/L Normal 10-20 [facility] Comment on above: Performed By: #### 1 [id number] #### MARCUS Kenyono [address] [place] [address] AST [Catalytic activity/Vol] 20 Int._Unit/L Normal 9-39 [facility] Comment on above: Performed By: #### 1 [id number] #### MARCUS WilcoxHemo [address] [place] [address] Bili Total 0.33 mg/dL Normal 0.00-1.20 [facility] Comment on above: Performed By: #### 1 [id number] #### MARCUSShawn WilcoxHemo [address] [place] [address] Calcium [Mass/Vol] 8.3 mg/dL Low 8.6-10.3 [facility] Comment on above: Performed By: #### 1 [id number] #### MARCUSShawn WilcoxHemo [address] [place] [address] Chloride [Moles/Vol] 114 mmol/L High 98-107 [facility] Comment on above: Performed By: #### 1 [id number] #### MARCUS RemHemo [address] [place] [address] CO2 [Moles/Vol] 22.0 mmol/L Normal 21.0-32.0 [facility] Comment on above: Performed By: #### 1 [id number] #### MARCUS RemHemo [address] [place] [address] Creatinine [Mass/Vol] 1.2 mg/dL High 0.5-1.1 [facility] Comment on above: Performed By: #### 1 [id number] #### MARCUS RemHemo [address] [place] [address] Globulin (S) [Mass/Vol] 2.0 g/dL Normal 2.0-4.0 [facility] Comment on above: Performed By: #### 1 [id number] #### MARCUS RemHemo [address] [place] [address] Glucose [Mass/Vol] 86 mg/dL Normal 70-99 [facility] Comment on above: Performed By: #### 1 [id number] #### MARCUS RemHemo [address] [place] [address] Potassium [Moles/Vol] 4.4 mmol/L Normal 3.5-5.3 [facility] Comment on above: Performed By: #### 1 [id number] #### MARCUS RemHemo [address] [place] [address] Protein [Mass/Vol] 5.5 g/dL Low 6.4-8.2 [facility] Comment on above: Performed By: #### 1 [id number] #### MARCUS RemHemo [address] [place] [address] Sodium [Moles/Vol] 141 mmol/L Normal 136-145 [facility] Comment on above: Performed By: #### 1 [id number] #### MARCUS RemHemo [address] [place] [address] Urea nitrogen [Mass/Vol] 11 mg/dL Normal 6-23 [facility] Comment on above: Performed By: #### 1 [id number] #### MARCUS RemHemo [address] [place] [address] Urea nitrogen/Creatinine [Mass ratio] 9.2 ratio Normal 5.4-30.0 [facility] Comment on above: Performed By: #### 1 [id number] #### MARCUS Kenyono [facility] [place] [address] Lamotrigine Lvlon 02-23-2019 Lamotrigine Lvl None Detected Normal 2.0-20.0 [facility] Comment on above: Result Comment: This test was developed and its performance characteristics determined by [employer]. It has not been cleared or approved by the Food and Drug Administration. Detection Limit = 1.0 Performed At: [address] [id number] Aramis Sharpe MD Ph:[phone] Performed By: #### 1 [id number] #### MARCUS WilcoxHemo [facility] [place] [address] Manual Diffon 02-23-2019 Band form neutrophils/100 WBC (Bld) 9 High 0-1 [facility] Comment on above: Order Comment: Order Added by Discern Expert. Performed By: #### 1 [id number] #### MARCUS RemHemo [facility] [place] [address] Basophil Man 0 % Normal 0-1 [facility] Comment on above: Order Comment: Order Added by Discern Expert. Performed By: #### 1 [id number] #### MARCUS WilcoxHemo [address] [place] [address] Eosinophils/100 WBC (Bld) 2 % Normal 0-5 [facility] Comment on above: Order Comment: Order Added by Discern Expert. Performed By: #### 1 [id number] #### MARCUS RemHemo [address] [place] [address] Lymphocytes/100 WBC (Bld) 33 % Normal 14-48 [facility] Comment on above: Order Comment: Order Added by Discern Expert. Performed By: #### 1 [id number] #### MARCUS RemHemo [address] [place] [address] Carlton Man 3 % High 0-0 [facility] Comment on above: Order Comment: Order Added by Discern Expert. Performed By: #### 1 [id number] #### MARCUS RemHemo [address] [place] [address] Monocyte Man 11 % Normal 1-11 [facility] Comment on above: Order Comment: Order Added by Discern Expert. Performed By: #### 1 [id number] #### MARCUS RemHemo [address] [place] [id number] Myelo Man 2 % High 0-0 [facility] Comment on above: Order Comment: Order Added by Discern Expert. Performed By: #### 1 [id number] #### MARCUS RemHemo [address] [place] [address] Ovalocytes 1+ Normal [facility] Comment on above: Order Comment: Order Added by Discern Expert. Performed By: #### 1 [id number] #### MARCUS RemHemo [facility] [place] [address] Polychromasia 1+ Normal [facility] Comment on above: Order Comment: Order Added by Discern Expert. Performed By: #### 1 [id number] #### MARCUS WilcoxHemo [address] [place] [address] RBC morphology finding Nom (Bld) SEE MORPHOLOGY Normal [facility] Comment on above: Order Comment: Order Added by Discern Expert. Performed By: #### 1 [id number] #### MARCUS RemHemo [address] [place] [address] Segs Man 40 % Normal 37-75 [facility] Comment on above: Order Comment: Order Added by Discern Expert. Performed By: #### 1 [id number] #### MARCUS RemHemo [facility] [place] [address] eGFRon 02-23-2019 GFR/1.73 sq M predicted among non-blacks MDRD (S/P/Bld) [Vol rate/Area] 60 mL/min/1.73 m2 [facility] Comment on above: Order Comment: Order Added by Discern Expert. Performed By: #### 1 [id number] #### MARCUS RemHemo [facility] [place] [address] GFR/1.73 sq M predicted among non-blacks MDRD (S/P/Bld) [Vol rate/Area] 50 mL/min/1.73 m2 [facility] Comment on above: Order Comment: Order Added by Discern Expert. Performed By: #### 1 [id number] #### MARCUS WilcoxHemo [facility] [place] [address] zzplt morphon 02-23-2019 Platelet morphology finding Nom (Bld) NORMAL Normal [facility] Comment on above: Performed By: #### 1 [id number] #### MARCUS WilcoxKarlo [address] [place] [address] Platelets (Bld) [#/Vol] DECREASED Normal [facility] Comment on above: Performed By: #### 1 [id number] #### MARCUS WilcoxHemo [facility] [place] [address] .Manual Abson 02-22-2019 Basophil Abs Man 0.0 10x3/ Normal 0.0-0.2 [facility] Comment on above: Order Comment: Order Added by Discern Expert. Performed By: #### 1 [id number] #### MARCUS WilcoxHemo [address] [place] [address] Eos Abs Man 0.0 10x3/ Normal 0.0-0.5 [facility] Comment on above: Order Comment: Order Added by Discern Expert. Performed By: #### 1 [id number] #### MARCUS WilcoxHemo [address] [place] [address] Lymph Abs Man 1.4 10x3/ Normal 1.2-3.4 [facility] Comment on above: Order Comment: Order Added by Discern Expert. Performed By: #### 1 [id number] #### MARCUS WilcoxHemo [address] [place] [address] Gentry Abs Man 0.3 10x3/ Normal 0.0-0.7 [facility] Comment on above: Order Comment: Order Added by Discern Expert. Performed By: #### 1 [id number] #### MARCUS WilcoxHemo [address] [place] [address] Segs Abs Man 1.1 10x3/ Low 1.4-6.5 [facility] Comment on above: Order Comment: Order Added by Discern Expert. Performed By: #### 1 [id number] #### MARCUS WilcoxHemo [facility] [place] [address] BMPon 02-22-2019 Anion gap [Moles/Vol] 10 mmol/L Normal 10-20 [facility] Comment on above: Performed By: #### 2 [id number] #### MARCUS WilcoxHemo [address] [place] [address] Calcium [Mass/Vol] 7.7 mg/dL Low 8.6-10.3 [facility] Comment on above: Performed By: #### 2 [id number] #### MARCUS WilcoxHemo [address] [place] [address] Chloride [Moles/Vol] 115 mmol/L High 98-107 [facility] Comment on above: Performed By: #### 2 [id number] #### MARCUS WilcoxHemo [address] [place] [address] CO2 [Moles/Vol] 20.0 mmol/L Low 21.0-32.0 [facility] Comment on above: Performed By: #### 2 [id number] #### MARCUS WilcoxHemo [address] [place] [address] Creatinine [Mass/Vol] 1.2 mg/dL High 0.5-1.1 [facility] Comment on above: Performed By: #### 2 [id number] #### MARCUS RemHemo [address] [place] [address] Glucose [Mass/Vol] 89 mg/dL Normal 70-99 [facility] Comment on above: Performed By: #### 2 [id number] #### MARCUS WilcoxHemo [address] [place] [address] Potassium [Moles/Vol] 4.3 mmol/L Normal 3.5-5.3 [facility] Comment on above: Performed By: #### 2 [id number] #### MARCUS RemHemo [address] [place] [address] Sodium [Moles/Vol] 141 mmol/L Normal 136-145 [facility] Comment on above: Performed By: #### 2 [id number] #### MARCUS RemHemo [address] [place] [address] Urea nitrogen [Mass/Vol] 14 mg/dL Normal 6-23 [facility] Comment on above: Performed By: #### 2 [id number] #### MARCUS RemHemo [address] [place] [address] Urea nitrogen/Creatinine [Mass ratio] 11.7 ratio Normal 5.4-30.0 [facility] Comment on above: Performed By: #### 2 [id number] #### MARCUS WilcoxHemo [address] [place] [address] CBC w/ Auto Diffon 9 Erythrocyte distribution width (RBC) [Ratio] 15.0 % High 11.5-14.5 [facility] Comment on above: Performed By: #### 1 [id number] #### MARCUS RemHemo [address] [place] [address] Hematocrit (Bld) [Volume fraction] 35.9 % Low 36.0-48.0 [facility] Comment on above: Performed By: #### 1 [id number] #### MARCUS WilcoxHemo [facility] [place] [address] Hemoglobin (Bld) [Mass/Vol] 11.8 g/dL Low 12.0-16.0 [facility] Comment on above: Performed By: #### 1 [id number] #### MARCUS RemHemo [address] [place] [address] MCH (RBC) [Entitic mass] 31.1 pg High 27.0-31.0 [facility] Comment on above: Performed By: #### 1 [id number] #### MARCUS RemHemo [address] [place] [address] MCHC (RBC) [Mass/Vol] 32.9 g/dL Low 33.0-37.0 [facility] Comment on above: Performed By: #### 1 [id number] #### MARCUS RemHemo [address] [place] [address] MCV (RBC) [Entitic vol] 94.6 fL Normal 78.0-100.0 [facility] Comment on above: Performed By: #### 1 [id number] #### MARCUS RemHemo [address] [place] [address] Platelet mean volume (Bld) [Entitic vol] 7.9 fL Normal 7.4-11.0 [facility] Comment on above: Performed By: #### 1 [id number] #### MARCUS WilcoxHemo [address] [place] [address] Platelets (Bld) [#/Vol] 62 E3/mcL Low 130-400 [facility] Comment on above: Performed By: #### 1 [id number] #### MARCUS WilcoxHemo [address] [place] [id number] RBC (Bld) [#/Vol] 3.79 E6/mcL Low 3.90-5.40 [facility] Comment on above: Performed By: #### 1 [id number] #### MARCUSShawn WilcoxHemo [address] [place] [address] WBC (Bld) [#/Vol] 2.8 E3/mcL Low 3.6-11.0 [facility] Comment on above: Performed By: #### 1 [id number] #### MARCUS WilcoxHemo [facility] [place] [address] Gases - Bloodon 02-22-2019 Allens Test. Normal [facility] Comment on above: Performed By: #### 1 [id number] #### MARCUS WilcoxHemo [address] [place] [address] Base Excess. -9 mmol/L Low -2-3 [facility] Comment on above: Performed By: #### 1 [id number] #### MARCUS WilcoxHemo [address] [place] [address] CO2 Tot. 17 mmol/L Low 22-28 [facility] Comment on above: Performed By: #### 1 [id number] #### MARCUS RemHemo [address] [place] [address] CPAP/PEEP(cmH2O). NOT CALCULATED Normal [facility] Comment on above: Performed By: #### 1 [id number] #### MARCUS RemHemo [address] [place] [address] FiO2. 21 % Normal [facility] Comment on above: Performed By: #### 1 [id number] #### MARCUS RemHemo [address] [place] [address] HCO#. 16.3 mmol/L Low 22.0-26.0 [facility] Comment on above: Performed By: #### 1 [id number] #### MARCUS WilcoxHemo [address] [place] [address] O2 Devices. Room Air [facility] Comment on above: Performed By: #### 1 [id number] #### MARCUS WilcoxHemo [address] [place] [address] OPID. [id number] [facility] Comment on above: Performed By: #### 1 [id number] #### MARCUS WilcoxHemo [facility] [place] [address] Oxygen (Bld) [Partial pressure] 101 mmHg High 80-100 [facility] Comment on above: Performed By: #### 1 [id number] #### MARCUS WilcoxHemo [facility] [place] [address] Oxygen saturation in Blood 98 % Normal 95-100 [facility] Comment on above: Performed By: #### 1 [id number] #### MARCUS WilcoxHemo [address] [place] [address] P CO2. 28.4 mmHg Low 35.0-45.0 [facility] Comment on above: Performed By: #### 1 [id number] #### MARCUS WilcoxHemo [address] [place] [address] Patient Temp. NOT CALCULATED [facility] [facility] Comment on above: Performed By: #### 1 [id number] #### MARCUS WilcoxHemo [address] [place] [address] pH (Bld) 7.367 Normal 7.350-7.450 [facility] Comment on above: Performed By: #### 1 [id number] #### MARCUS WilcoxHemo [address] [place] [address] PSV/IP(cmH2O). NOT CALCULATED [facility] Comment on above: Performed By: #### 1 [id number] #### MARCUSShawn WilcoxHemo [address] [place] [address] Sample Site. R brach [facility] Comment on above: Performed By: #### 1 [id number] #### MARCUS WilcoxHemo [address] [place] [address] Sample Type. Arterial [facility] Comment on above: Performed By: #### 1 [id number] #### MARCUS Luong [facility] [place] [address] Set RR(b/min). NOT CALCULATED Normal [facility] Comment on above: Performed By: #### 1 [id number] #### MARCUS Luong [facility] [place] [address] Tidal Volume(mL). NOT CALCULATED Normal [facility] Comment on above: Performed By: #### 1 [id number] #### MARCUS Luong [address] [place] [address] Vent Mode. NOT CALCULATED Normal [facility] Comment on above: Performed By: #### 1 [id number] #### MARCUS Kenyono [address] [place] [address] [id number] 02-22-2019 HbA1c (Bld) [Mass fraction] 5.1 % Normal 4.0-6.3 [facility] Comment on above: Performed By: #### 1 [id number] #### MARCUS Luong [address] [place] [address] Magnesiumon 02-22-2019 Magnesium [Mass/Vol] 1.8 mg/dL Normal 1.6-2.4 [facility] Comment on above: Performed By: #### 1 [id number] #### MARCUS Kenyono [address] [place] [address] Manual Diffon 02-22-2019 Anisocytosis Ql (Bld) 1+ Normal [facility] Comment on above: Order Comment: Order Added by Discern Expert. Performed By: #### 1 [id number] #### MARCUS WilcoxHemo [address] [place] [address] Basophil Man 0 % Normal 0-1 [facility] Comment on above: Order Comment: Order Added by Discern Expert. Performed By: #### 1 [id number] #### MARCUS WilcoxHemo [facility] [place] [id number] Eosinophils/100 WBC (Bld) 0 % Normal 0-5 [facility] Comment on above: Order Comment: Order Added by Discern Expert. Performed By: #### 1 [id number] #### MARCUS WilcoxHemo [facility] [place] [address] Lymphocytes/100 WBC (Bld) 51 % High 14-48 [facility] Comment on above: Order Comment: Order Added by Discern Expert. Performed By: #### 1 [id number] #### MARCUS Kenyono [facility] [place] [address] Monocyte Man 9 % Normal 1-11 [facility] Comment on above: Order Comment: Order Added by Discern Expert. Performed By: #### 1 [id number] #### MARCUS WilcoxHemo [facility] [place] [id number] RBC morphology finding Nom (Bld) SEE MORPHOLOGY Normal [facility] Comment on above: Order Comment: Order Added by Discern Expert. Performed By: #### 1 [id number] #### MARCUS WilcoxHemo [facility] [place] [address] Segs Man 40 % Normal 37-75 [facility] Comment on above: Order Comment: Order Added by Discern Expert. Performed By: #### 1 [id number] #### MARCUS WilcoxHemo [facility] [place] [id number] Phosphoruson 02-22-2019 Phosphate [Mass/Vol] 2.7 mg/dL Normal 2.5-4.9 [facility] Comment on above: Performed By: #### 1 [id number] #### MARCUS WilcoxHemo [address] [place], [place] [id number] Valproic Acidon 02-22-2019 Valpro Acid Lvl 75 microgram/mL Normal 50-100 [facility] Comment on above: Performed By: #### 1 [id number] #### MARCUS WilcoxHemo [facility] [place] [id number] eGFRon 02-22-2019 GFR/1.73 sq M predicted among non-blacks MDRD (S/P/Bld) [Vol rate/Area] 56 mL/min/1.73 m2 Normal [facility] Comment on above: Order Comment: Order added by Discern Expert. Performed By: #### 2 [id number] #### MARCUS WilcoxHemo [facility] [place] [address] GFR/1.73 sq M predicted among non-blacks MDRD (S/P/Bld) [Vol rate/Area] 46 mL/min/1.73 m2 Normal [facility] Comment on above: Order Comment: Order added by Discern Expert. Performed By: #### 2 [id number] #### MARCUS RemHemo [address] [place] [address] zzplt morphon 02-22-2019 Platelet morphology finding Nom (Bld) ENLARGED Normal [facility] Comment on above: Performed By: #### 1 [id number] #### MARCUS RemHemo [address] [place] [address] Platelets (Bld) [#/Vol] DECREASED Normal [facility] Comment on above: Performed By: #### 1 [id number] #### MARCUS RemHemo [address] [place] [address] Acetamnphn Lvlon 02-21-2019 Acetaminoph Lvl <10 Normal 10-30 [facility] Comment on above: Performed By: #### 2 [id number] #### MARCUS Microbiology Subsection [address] [place] [address] Ammoniaon 02-21-2019 Ammonia (P) [Mass/Vol] 55 mcmol/L High 16-53 [facility] Comment on above: Performed By: #### 2 [id number] #### MARCUS Microbiology Subsection [address] [place] [address] Auto Diffon 02-21-2019 Basophils (Bld) [#/Vol] 0.0 E3/mcL Normal 0.0-0.2 [facility] Comment on above: Order Comment: Order Added by Discern Expert. Performed By: #### 2 [id number] #### MARCUS Microbiology Subsection [address] [place] [address] Basophils/100 WBC (Bld) 0.4 % Normal 0.0-2.0 [facility] Comment on above: Order Comment: Order Added by Discern Expert. Performed By: #### 2 [id number] #### MARCUS Microbiology Subsection [address] [place] [address] Eos Absolute 0.1 E3/mcL Normal 0.0-0.7 [facility] Comment on above: Order Comment: Order Added by Discern Expert. Performed By: #### 2 [id number] #### MARCUS Microbiology Subsection [address] [place] [address] Eosinophils/100 WBC (Bld) 1.4 % Normal 0.0-11.0 [facility] Comment on above: Order Comment: Order Added by Discern Expert. Performed By: #### 2 [id number] #### MARCUS Microbiology Subsection [address] [place] [address] Lymphocytes (Bld) [#/Vol] 1.0 E3/mcL Low 1.2-3.4 [facility] Comment on above: Order Comment: Order Added by Discern Expert. Performed By: #### 2 [id number] #### MARCUS Microbiology Subsection [address] [place] [address] Lymphocytes/100 WBC (Bld) 24.1 % Normal 20.0-55.0 [facility] Comment on above: Order Comment: Order Added by Katya Expert. Performed By: #### 2 [id number] #### MARCUS Microbiology Subsection [address] [place] [address] Gentry Absolute 0.5 E3/mcL Normal 0.0-0.7 [facility] Comment on above: Order Comment: Order Added by Katya Expert. Performed By: #### 2 [id number] #### MARCUS Microbiology Subsection [address] [place] [address] Monocytes/100 WBC (Bld) 10.8 % High 0.0-10.0 [facility] Comment on above: Order Comment: Order Added by Katya Expert. Performed By: #### 2 [id number] #### MARCUS Microbiology Subsection [address] [place] [address] Neutro Absolute 2.7 E3/mcL Normal 1.4-6.5 [facility] Comment on above: Order Comment: Order Added by Katya Expert. Performed By: #### 2 [id number] #### MARCUS Microbiology Subsection [address] [place] [address] Neutro Auto 63.3 % Normal 37.0-75.0 [facility] Comment on above: Order Comment: Order Added by Katya Expert. Performed By: #### 2 [id number] #### MARCUS Microbiology Subsection [address] [place] [address] BMPon 02-21-2019 Anion gap [Moles/Vol] 18 mmol/L Normal 10-20 [facility] Comment on above: Performed By: #### 8 [id number] #### MARCUS Urinalysis Automated Subsection [address] [place] [address] Calcium [Mass/Vol] 8.6 mg/dL Normal 8.6-10.3 [facility] Comment on above: Performed By: #### 8 [id number] #### MARCUS Urinalysis Automated Subsection [address] [place] [address] Chloride [Moles/Vol] 106 mmol/L Normal 98-107 [facility] Comment on above: Performed By: #### 8 [id number] #### MARCUS Urinalysis Automated Subsection [address] [place] [address] CO2 [Moles/Vol] 16.0 mmol/L Low 21.0-32.0 [facility] Comment on above: Performed By: #### 8 [id number] #### MARCUS Urinalysis Automated Subsection [address] [place] [address] Creatinine [Mass/Vol] 1.4 mg/dL High 0.5-1.1 [facility] Comment on above: Performed By: #### 8 [id number] #### MARCUS Urinalysis Automated Subsection [address] [place] [address] Glucose [Mass/Vol] 165 mg/dL High 70-99 [facility] Comment on above: Performed By: #### 8 [id number] #### MARCUS Urinalysis Automated Subsection [address] [place] [address] Potassium [Moles/Vol] 2.9 mmol/L Low 3.5-5.3 [facility] Comment on above: Performed By: #### 8 [id number] #### MARCUS Urinalysis Automated Subsection [address] [place] [address] Sodium [Moles/Vol] 137 mmol/L Normal 136-145 [facility] Comment on above: Performed By: #### 8 [id number] #### MARCUS Urinalysis Automated Subsection [address] [place] [address] Urea nitrogen [Mass/Vol] 14 mg/dL Normal 6-23 [facility] Comment on above: Performed By: #### 8 [id number] #### MARCUS Urinalysis Automated Subsection [address] [place] [address] Urea nitrogen/Creatinine [Mass ratio] 10.0 ratio Normal 5.4-30.0 [facility] Comment on above: Performed By: #### 8 [id number] #### MARCUS Urinalysis Automated Subsection [address] [place] [address] CBC w/ Auto Diffon 9 Erythrocyte distribution width (RBC) [Ratio] 14.7 % High 11.5-14.5 [facility] Comment on above: Performed By: #### 8 [id number] #### MARCUS Urinalysis Automated Subsection [facility] [place] [address] Hematocrit (Bld) [Volume fraction] 41.4 % Normal 36.0-48.0 [facility] Comment on above: Performed By: #### 8 [id number] #### MARCUS Urinalysis Automated Subsection [address] [place], [place] [address] Hemoglobin (Bld) [Mass/Vol] 13.3 g/dL Normal 12.0-16.0 [facility] Comment on above: Performed By: #### 8 [id number] #### MARCUS Urinalysis Automated Subsection [address] [place], [place] [address] MCH (RBC) [Entitic mass] 30.7 pg Normal 27.0-31.0 [facility] Comment on above: Performed By: #### 8 [id number] #### MARCUS Urinalysis Automated Subsection [address] [place], [place] [address] MCHC (RBC) [Mass/Vol] 32.2 g/dL Low 33.0-37.0 [facility] Comment on above: Performed By: #### 8 [id number] #### MARCUS Urinalysis Automated Subsection [address] [place] [address] MCV (RBC) [Entitic vol] 95.5 fL Normal 78.0-100.0 [facility] Comment on above: Performed By: #### 8 [id number] #### MARCUS Urinalysis Automated Subsection [address] [place] [address] Platelet mean volume (Bld) [Entitic vol] 7.9 fL Normal 7.4-11.0 [facility] Comment on above: Performed By: #### 8 [id number] #### MARCUS Urinalysis Automated Subsection [facility] [place] [address] Platelets (Bld) [#/Vol] 66 E3/mcL Low 130-400 [facility] Comment on above: Performed By: #### 8 [id number] #### MARCUS Urinalysis Automated Subsection [facility] [place] [address] RBC (Bld) [#/Vol] 4.34 E6/mcL Normal 3.90-5.40 [facility] Comment on above: Performed By: #### 8 [id number] #### MARCUS Urinalysis Automated Subsection [address] [place] [address] WBC (Bld) [#/Vol] 4.2 E3/mcL Normal 3.6-11.0 [facility] Comment on above: Performed By: #### 8 [id number] #### MARCUS Urinalysis Automated Subsection [address] [place] [address] CKon 02-21-2019 Total CK 46 Int._Unit/L Normal <=215 [facility] Comment on above: Performed By: #### 8 [id number] #### MARCUS Urinalysis Automated Subsection [address] [place] [address] Ethanolon 02-21-2019 Ethanol [Mass/Vol] mg/dL Normal <=10 [facility] Comment on above: Performed By: #### 2 [id number] #### MARCUS Microbiology Subsection [address] [place] [address] Gases - Bloodon 02-21-2019 Allens Test. Positive Normal [facility] Comment on above: Performed By: #### 2 [id number] #### MARCUS RemHemo [address] [place] [address] Base Excess. -9 mmol/L Low -2-3 [facility] Comment on above: Performed By: #### 2 [id number] #### MARCUS RemHemo [facility] [place] [address] CO2 Tot. 18 mmol/L Low 22-28 [facility] Comment on above: Performed By: #### 2 [id number] #### MARCUS RemHemo [address] [place] [address] CPAP/PEEP(cmH2O). 0 [facility] Comment on above: Performed By: #### 2 [id number] #### MARCUS Kenyono [address] [place] [address] FiO2. 21 % Normal [facility] Comment on above: Performed By: #### 2 [id number] #### MARCUS Kenyono [facility] [place] [address] HCO#. 17.2 mmol/L Low 22.0-26.0 [facility] Comment on above: Performed By: #### 2 [id number] #### MARCUS Kenyono [facility] [place] [address] O2 Devices. Room Air [facility] Comment on above: Performed By: #### 2 [id number] #### MARCUS Kenyono [address] [place] [address] OPID. [id number] [facility] Comment on above: Performed By: #### 2 [id number] #### MARCUS Kenyono [address] [place] [address] Oxygen (Bld) [Partial pressure] 85 mmHg Normal 80-100 [facility] Comment on above: Performed By: #### 2 [id number] #### MARCUS Kenyono [address] [place], [place] [address] Oxygen saturation in Blood 96 % Normal 95-100 [facility] Comment on above: Performed By: #### 2 [id number] #### MARCUS Kenyono [address] [place] [address] P CO2. 32.7 mmHg Low 35.0-45.0 [facility] Comment on above: Performed By: #### 2 [id number] #### MARCUS WilcoxHemo [address] [place] [id number] Patient Temp. NOT CALCULATED Normal [facility] Comment on above: Performed By: #### 2 [id number] #### MARCUS WilcoxHemo [address] [place] [id number] pH (Bld) 7.329 Low 7.350-7.450 [facility] Comment on above: Performed By: #### 2 [id number] #### MARCUS WilcoxHemo [address] [place] [address] PSV/IP(cmH2O). 0 [facility] Comment on above: Performed By: #### 2 [id number] #### MARCSU WilcoxHemo [address] [place] [address] Sample Site. R rad [facility] Comment on above: Performed By: #### 2 [id number] #### MARCUS WilcoxHemo [facility] [place] [address] Sample Type. Arterial [facility] Comment on above: Performed By: #### 2 [id number] #### MARCUS Kenyono [facility] [place] [address] Set RR(b/min). 0 [facility] Comment on above: Performed By: #### 2 [id number] #### MARCUS WilcoxHemo [facility] [place] [address] Tidal Volume(mL). 0 [facility] Comment on above: Performed By: #### 2 [id number] #### MARCUS WilcoxHemo [address] [place] [address] Vent Mode. NOT CALCULATED [facility] Comment on above: Performed By: #### 2 [id number] #### MARCUS WilcoxHemo [address] [place] [address] Allens Test. Negative [facility] Comment on above: Performed By: #### 2 [id number] #### MARCUS WilcoxHemo [address] [place] [address] Base Excess. -8 mmol/L Low -2-3 [facility] Comment on above: Performed By: #### 2 [id number] #### MARCUS RemHemo [address] [place] [address] CO2 Tot. 19 mmol/L Low 22-28 [facility] Comment on above: Performed By: #### 2 [id number] #### MARCUS RemHemo [address] [place] [address] CPAP/PEEP(cmH2O). NOT CALCULATED [facility] Comment on above: Performed By: #### 2 [id number] #### MARCUS RemHemo [address] [place] [address] FiO2. 21 % Normal [facility] Comment on above: Performed By: #### 2 [id number] #### MARCUS Kenyono [facility] [place] [address] HCO#. 17.9 mmol/L Low 22.0-26.0 [facility] Comment on above: Performed By: #### 2 [id number] #### MARCUS Kenyono [facility] [place] [address] O2 Devices. Room Air [facility] Comment on above: Performed By: #### 2 [id number] #### MARCUS Kenyono [facility] [place] [address] OPID. [id number] [facility] Comment on above: Performed By: #### 2 [id number] #### MARCUS Kenyono [address] [place] [address] Oxygen (Bld) [Partial pressure] 86 mmHg Normal 80-100 [facility] Comment on above: Performed By: #### 2 [id number] #### MARCUS Kenyono [address] [place] [address] Oxygen saturation in Blood 96 % Normal 95-100 [facility] Comment on above: Performed By: #### 2 [id number] #### MARCUS Kenyono [address] [place], [place] [address] P CO2. 34.1 mmHg Low 35.0-45.0 [facility] Comment on above: Performed By: #### 2 [id number] #### MARCUS WilcoxHemo [address] [place] [address] Patient Temp. NOT CALCULATED Normal [facility] Comment on above: Performed By: #### 2 [id number] #### MARCUS Kenyono [address] [place] [id number] pH (Bld) 7.329 Low 7.350-7.450 [facility] Comment on above: Performed By: #### 2 175771 #### MARCUS WilcoxHemo [address] [place] [id number] PSV/IP(cmH2O). NOT CALCULATED Normal [facility] Comment on above: Performed By: #### 2 [id number] #### MARCUS Kenyono [facility] [place] [address] Sample Site. R rad Normal [facility] Comment on above: Performed By: #### 2 [id number] #### MARCUS Kenyono [facility] [place] [address] Sample Type. Arterial Normal [facility] Comment on above: Performed By: #### 2 [id number] #### MARCUS Kenyono [facility] [place] [address] Set RR(b/min). NOT CALCULATED Normal [facility] Comment on above: Performed By: #### 2 [id number] #### MARCUS Kenyono [facility] [place] [address] Tidal Volume(mL). NOT CALCULATED [facility] Comment on above: Performed By: #### 2 [id number] #### MARCUS Kenyono [facility] [place] [address] Vent Mode. NOT CALCULATED [facility] Comment on above: Performed By: #### 2 [id number] #### MARCUS WilcoxHemo [facility] [place] [address] Hep Func Panelon 02-21-2019 Albumin [Mass/Vol] 4.0 g/dL Normal 3.4-5.0 [facility] Comment on above: Performed By: #### 8 [id number] #### MARCUS Urinalysis Automated Subsection [address] [place] [address] Albumin/Globulin [Mass ratio] 1.5 {ratio} Normal 1.1-1.9 [facility] Comment on above: Performed By: #### 8 [id number] #### MARCUS Urinalysis Automated Subsection [address] [place] [address] Alk Phos 69 Int._Unit/L Normal 33-110 [facility] Comment on above: Performed By: #### 8 [id number] #### MARCUS Urinalysis Automated Subsection [address] [place], [place] [id number] ALT [Catalytic activity/Vol] 18 Int._Unit/L Normal 7-45 [facility] Comment on above: Performed By: #### 8 [id number] #### MARCUS Urinalysis Automated Subsection [address] [place] [address] AST [Catalytic activity/Vol] 33 Int._Unit/L Normal 9-39 [facility] Comment on above: Performed By: #### 8 [id number] #### MARCUS Urinalysis Automated Subsection [facility] [place] [address] Bili Direct 0.10 mg/dL Normal 0.00-0.30 [facility] Comment on above: Performed By: #### 8 [id number] #### MARCUS Urinalysis Automated Subsection [address] [place] [address] Bili Indirect 0.33 mg/dL Normal [facility] Comment on above: Result Comment: No e stablished ranges available for the indirect bilirubin Performed By: #### 8 [id number] #### MARCUS Urinalysis Automated Subsection [address] [place] [address] Bili Total 0.43 mg/dL Normal 0.00-1.20 [facility] Comment on above: Performed By: #### 8 [id number] #### MARCUS Urinalysis Automated Subsection [address] [place] [address] Globulin (S) [Mass/Vol] 3.0 g/dL Normal 2.0-4.0 [facility] Comment on above: Performed By: #### 8 [id number] #### MARCUS Urinalysis Automated Subsection [address] [place] [address] Protein [Mass/Vol] 6.6 g/dL Normal 6.4-8.2 [facility] Comment on above: Performed By: #### 8 [id number] #### MARCUS Urinalysis Automated Subsection [address] [place] [address] Lactic Acidon 02-21-2019 Lactate [Moles/Vol] 1.4 mmol/L Normal 0.4-2.0 [facility] Comment on above: Order Comment: Sepsi s Reflex order due to high lactic acid level Performed By: #### 2 [id number] #### MARCUS RemHemo [address] [place] [address] Lactate [Moles/Vol] 2.2 mmol/L High 0.4-2.0 [facility] Comment on above: Performed By: #### 2 [id number] #### MARCUS RemHemo [address] [place] [address] Lipase Levelon 02-21-2019 Lipase Lvl 37 Int._Unit/L Normal 9-82 [facility] Comment on above: Performed By: #### 8 [id number] #### MARCUS Urinalysis Automated Subsection [address] [place] [address] Magnesiumon 02-21-2019 Magnesium [Mass/Vol] 1.7 Int._Unit/L Normal 1.6-2.4 [facility] Comment on above: Performed By: #### 2 [id number] #### MARCUS Microbiology Subsection [facility] [place] [address] Morphon 02-21-2019 Polychromasia 1+ Normal [facility] Comment on above: Order Comment: Strai ght Cath as needed Performed By: #### 8 [id number] #### MARCUS Urinalysis Automated Subsection [facility] [place] [address] RBC morphology finding Nom (Bld) SEE MORPHOLOGY Normal [facility] Comment on above: Order Comment: Strai ght Cath as needed Performed By: #### 8 [id number] #### MARCUS Urinalysis Automated Subsection [facility] [place] [address] Teardrop Cell 1+ Normal [facility] Comment on above: Order Comment: Strai ght Cath as needed Performed By: #### 8 [id number] #### MARCUS Urinalysis Automated Subsection [facility] [place] [address] Salicylateon 02-21-2019 Salicylate Lvl <1.5 Low 4.0-20.0 [facility] Comment on above: Performed By: #### 2 [id number] #### MARCUS RemHemo [address] [place] [address] TSHon 02-21-2019 TSH Qn 4.82 mcIU/mL Normal 0.30-5.60 [facility] Comment on above: Order Comment: With T4fr Reflex Performed By: #### 2 [id number] #### MARCUS Microbiology Subsection [facility] [place] [id number] U BhCG Qlton 02-21-2019 HCG.beta subunit Qn Negative Normal Neg [facility] Comment on above: Performed By: #### 2 [id number] #### MARCUS Microbiology Subsection [address] [place] [address] U Creatinineon 02-21-2019 U Creatinine 31 mg/dL Normal 20-300 [facility] Comment on above: Performed By: #### 2 799000 #### MARCUS RemHemo [address] [place] [address] U Proteinon 02-21-2019 Protein [Mass/Vol] 4 mg/dL Normal 1-14 [facility] Comment on above: Performed By: #### 2 [id number] #### MARCUS RemHemo [address] [place] [address] U Sodiumon 02-21-2019 Sodium [Moles/Vol] 36 mmol/L Normal [facility] Comment on above: Performed By: #### 2 [id number] #### MARCUS Microbiology Subsection [address] [place] [address] UA Completeon 02-21-2019 Color (U) Straw Normal Yellow [facility] Comment on above: Order Comment: Strai ght Cath as needed Performed By: #### 2 [id number] #### MARCUS Microbiology Subsection [address] [place] [address] Glucose (U) [Mass/Vol] Negative Normal Negative [facility] Comment on above: Order Comment: Strai ght Cath as needed Performed By: #### 2 [id number] #### MARCUS Microbiology Subsection [facility] [place] [address] Ketones Ql (U) Negative Normal Negative [facility] Comment on above: Order Comment: Strai ght Cath as needed Performed By: #### 2 [id number] #### MARCUS Microbiology Subsection [facility] [place] [address] RBC (U) [#/Vol] 0-3 Normal 0-3 [facility] Comment on above: Order Comment: Strai ght Cath as needed Performed By: #### 2 [id number] #### MARCUS Microbiology Subsection [address] [place] [address] UA Blood Negative Normal Negative [facility] Comment on above: Order Comment: Strai ght Cath as needed Performed By: #### 2 [id number] #### MARCUS Microbiology Subsection [facility] [place] [address] UA Bacteria Trace Abnormal None [facility] Comment on above: Order Comment: Strai ght Cath as needed Performed By: #### 2 [id number] #### MARCUS Microbiology Subsection [facility] [place] [address] UA Clarity SltCloudy Abnormal Clear [facility] Comment on above: Order Comment: Strai ght Cath as needed Performed By: #### 2 [id number] #### MARCUS Microbiology Subsection [facility] [place] [address] UA Leuk Est 1+ Abnormal Negative [facility] Comment on above: Order Comment: Strai ght Cath as needed Performed By: #### 2 [id number] #### MARCUS Microbiology Subsection [address] [place] [address] UA Mucous Trace Abnormal Trace [facility] Comment on above: Order Comment: Strai ght Cath as needed Performed By: #### 2 [id number] #### MARCUS Microbiology Subsection [address] [place] [address] UA Nitrite Negative Normal Negative [facility] Comment on above: Order Comment: Strai ght Cath as needed Performed By: #### 2 [id number] #### MARCUS Microbiology Subsection [address] [place] [address] UA pH 5.0 Normal 4.6-8.0 [facility] Comment on above: Order Comment: Strai ght Cath as needed Performed By: #### 2 [id number] #### MARCUS Microbiology Subsection [address] [place] [address] UA Protein Negative Normal Negative [facility] Comment on above: Order Comment: Strai ght Cath as needed Performed By: #### 2 [id number] #### MARCUS Microbiology Subsection [address] [place] [address] UA Spec Grav 1.005 Normal 1.003-1.030 [facility] Comment on above: Order Comment: Strai ght Cath as needed Performed By: #### 2 [id number] #### MARCUS Microbiology Subsection [address] [place] [address] UA Squam Epithelial 5-10 Abnormal 0-5 [facility] Comment on above: Order Comment: Strai ght Cath as needed Performed By: #### 2 484730 #### MARCUS Microbiology Subsection [address] [place] [address] UA Urobilinogen Negative Normal [facility] Comment on above: Order Comment: Strai ght [...] within 24 hours. Performed By: #### 2 [id number] #### MARCUS Microbiology Subsection [facility] [place] [address] UA WBC 0-5 Normal 0-5 [facility] Comment on above: Order Comment: Strai ght Cath as needed Performed By: #### 2 [id number] #### MARCUS Microbiology Subsection [address] [place] [address] Urobilinogen Qn (U) Negative Normal Negative [facility] Comment on above: Order Comment: Strai ght Cath as needed Performed By: #### 2 789207 #### MARCUS Microbiology Subsection [address] [place] [address] Valproic Acidon 02-21-2019 Valpro Acid Lvl 102 microgram/mL Critically abnormal 50-100 [facility] Comment on above: Result Comment: Crit ical Result (s) Called to and read back by: XUAN GARCIA at: 02/21/2019 18:51:29 by:ZOFIA Performed By: #### 2 [id number] #### MARCUS RemHemo [address] [place] [address] Valpro Acid Lvl 101 microgram/mL Critically abnormal 50-100 [facility] Comment on above: Result Comment: Crit ical Result (s) Called to and read back by: XUAN GARCIA at: 02/21/2019 13:43:39 by:RAY Performed By: #### 2 [id number] #### MARCUS Microbiology Subsection [address] [place] [address] eGFRon 02-21-2019 GFR/1.73 sq M predicted among non-blacks MDRD (S/P/Bld) [Vol rate/Area] 49 mL/min/1.73 m2 [facility] Comment on above: Order Comment: Strai ght Cath as needed Performed By: #### 8 [id number] #### MARCUS Urinalysis Automated Subsection [facility] [place] [address] GFR/1.73 sq M predicted among non-blacks MDRD (S/P/Bld) [Vol rate/Area] 40 mL/min/1.73 m2 [facility] Comment on above: Order Comment: Strai ght Cath as needed Performed By: #### 8 [id number] #### MARCUS Urinalysis Automated Subsection [facility] [place] [address] zzplt morphon 02-21-2019 Platelet morphology finding Nom (Bld) ENLARGED [facility] Comment on above: Performed By: #### 8 [id number] #### MARCUS Urinalysis Automated Subsection [facility] [place] [address] Platelets (Bld) [#/Vol] DECREASED [facility] Comment on above: Performed By: #### 8 [id number] #### MARCUS Urinalysis Automated Subsection [facility] [place] [id number] [place] Myocardial Perfusion Stud y Single - Stress Onlyon 12-26-2018 Nuclear Report _ Patient: PABLO BENAVIDEZ [facility] Rec#: [id number] (Age): 1975(43y) Height: Study Date: 12/26/2018 Weight: [...] 12/26/2018 14:58:38 by: Zeke Onofre MD, RVPI [facility] Interface, Rad In [facility] - 12/26/2018 3:48 PM EDT Nuclear Report _ Patient: PABLO BENAVIDEZ Med Rec#: [id number] (Age): 1975(43y) Height: Study Date: 12/26/2018 Weight: [...] 12/26/2018 14:58:38 by: Zeke Onofre MD, PI [facility] Influenza A&B Agon 9 Influenzae A Ag Negative Normal Negative [facility] Comment on above: Result Comment: Test Performed by PCR Testing Performed By: #### 8 [id number] #### MARCUS Urinalysis Automated Subsection [address] [place] [id number] Influenzae B Ag Negative Normal Negative [facility] Comment on above: Result Comment: Test Performed by PCR Testing Performed By: #### 8 [id number] #### MARCUS Urinalysis Automated Subsection [address] [place] [id number] XR Chest 2 Viewson 9 XR Chest 2 Views Exam Date/Time: 12/21/2018 04:05 EST Reason for Exam: Cough Report STUDY: XR Chest 2 Views; 12/21/2018 4:05 am INDICATION: Cough. COMPARISON: 10/02/2018 ACCESSION NUMBER(S): [id number] ORDERING CLINICIAN: Bob Wick FINDINGS: No significant [...] Nicole Anderson MD Technologist: TAMIKO Del Rio [facility] Auto Diffon 12-12-2018 Basophils (Bld) [#/Vol] 0.0 E3/mcL Normal 0.0-0.2 [facility] Comment on above: Order Comment: With T4fr Reflex Performed By: #### 2 [id number] #### MARCUS [employer] [address] [place] [id number] Basophils/100 WBC (Bld) 0.4 % Normal 0.0-2.0 [facility] Comment on above: Order Comment: With T4fr Reflex Performed By: #### 2 146340 #### MARCUS [employer] [address] [place] [address] Eos Absolute 0.0 E3/mcL Normal 0.0-0.7 [facility] Comment on above: Order Comment: With T4fr Reflex Performed By: #### 2 087111 #### MARCUS [employer] [address] [place] [address] Eosinophils/100 WBC (Bld) 0.1 % Normal 0.0-11.0 [facility] Comment on above: Order Comment: With T4fr Reflex Performed By: #### 2 222659 #### MARCUS [employer] [address] [place] [address] Lymphocytes (Bld) [#/Vol] 0.6 E3/mcL Low 1.2-3.4 [facility] Comment on above: Order Comment: With T4fr Reflex Performed By: #### 2 238013 #### MARCUS [employer] [address] [place] [address] Lymphocytes/100 WBC (Bld) 9.6 % Low 20.0-55.0 [facility] Comment on above: Order Comment: With T4fr Reflex Performed By: #### 2 309074 #### MARCUS [facility] [address] [place] [address] Gentry Absolute 0.6 E3/mcL Normal 0.0-0.7 [facility] Comment on above: Order Comment: With T4fr Reflex Performed By: #### 2 696523 #### MARCUS [employer] [address] [place] [address] Monocytes/100 WBC (Bld) 9.4 % Normal 0.0-10.0 [facility] Comment on above: Order Comment: With T4fr Reflex Performed By: #### 2 018200 #### MARCUS [facility] [address] [place] [address] Neutro Absolute 5.0 E3/mcL Normal 1.4-6.5 [facility] Comment on above: Order Comment: With T4fr Reflex Performed By: #### 2 283275 #### MARCUS [facility] [address] [place] [address] Neutro Auto 80.5 % High 37.0-75.0 [facility] Comment on above: Order Comment: With T4fr Reflex Performed By: #### 2 991040 #### MARCUS [employer] [address] [place] [address] BMPon 12-12-2018 Anion gap [Moles/Vol] 16 mmol/L Normal 10-20 [facility] Comment on above: Performed By: #### 2 014140 #### MARCUS [employer] [address] [place] [address] Calcium [Mass/Vol] 9.5 mg/dL Normal 8.6-10.3 [facility] Comment on above: Performed By: #### 2 279429 #### MARCUS [employer] [address] [place] [address] Chloride [Moles/Vol] 105 mmol/L Normal 98-107 [facility] Comment on above: Performed By: #### 2 190545 #### MARCUS [employer] [address] [place] [address] CO2 [Moles/Vol] 20.0 mmol/L Low 21.0-32.0 [facility] Comment on above: Performed By: #### 2 418831 #### MARCUS [employer] [address] [place] [address] Creatinine [Mass/Vol] 1.6 mg/dL High 0.5-1.1 [facility] Comment on above: Performed By: #### 2 909486 #### MARCUS [employer] [address] [place] [address] Glucose [Mass/Vol] 150 mg/dL High 70-99 [facility] Comment on above: Performed By: #### 2 823934 #### MARCUS [employer] [address] [place] [address] Potassium [Moles/Vol] 4.4 mmol/L Normal 3.5-5.3 [facility] Comment on above: Performed By: #### 2 627875 #### MARCUS [employer] [address] [place] [address] Sodium [Moles/Vol] 137 mmol/L Normal 136-145 [facility] Comment on above: Performed By: #### 2 277241 #### MARCUS [employer] [address] [place] [address] Urea nitrogen [Mass/Vol] 27 mg/dL High 6-23 [facility] Comment on above: Performed By: #### 2 525829 #### MARCUS [employer] [facility] [place] [address] Urea nitrogen/Creatinine [Mass ratio] 16.9 ratio Normal 5.4-30.0 [facility] Comment on above: Performed By: #### 2 797980 #### MARCUS WilcoxChem [facility] [place] [address] CBC w/ Auto Diffon Erythrocyte distribution width (RBC) [Ratio] 13.8 % Normal 11.5-14.5 [facility] Comment on above: Performed By: #### 2 137771 #### MARCUS [employer] [facility] [place] [address] Hematocrit (Bld) [Volume fraction] 44.1 % Normal 36.0-48.0 [facility] Comment on above: Performed By: #### 2 765152 #### MARCUS JeriChem [facility] [place] [address] Hemoglobin (Bld) [Mass/Vol] 14.4 g/dL Normal 12.0-16.0 [facility] Comment on above: Performed By: #### 2 841425 #### MARCUS [employer] [address] [place] [address] MCH (RBC) [Entitic mass] 30.3 pg Normal 27.0-31.0 [facility] Comment on above: Performed By: #### 2 273313 #### MARCUS [employer] [address] [place] [address] MCHC (RBC) [Mass/Vol] 32.7 g/dL Low 33.0-37.0 [facility] Comment on above: Performed By: #### 2 405369 #### MARCUS [employer] [address] [place] [address] MCV (RBC) [Entitic vol] 92.9 fL Normal 78.0-100.0 [facility] Comment on above: Performed By: #### 2 828247 #### MARCUS [employer] [address] [place] [address] Platelet mean volume (Bld) [Entitic vol] 8.1 fL Normal 7.4-11.0 [facility] Comment on above: Performed By: #### 2 230092 #### MARCUS [employer] [address] [place] [address] Platelets (Bld) [#/Vol] 122 E3/mcL Low 130-400 [facility] Comment on above: Performed By: #### 2 560685 #### MARCUS [employer] [address] [place] [address] RBC (Bld) [#/Vol] 4.75 E6/mcL Normal 3.90-5.40 [facility] Comment on above: Performed By: #### 2 063407 #### MARCUS [employer] [address] [place] [address] WBC (Bld) [#/Vol] 6.2 E3/mcL Normal 3.6-11.0 [facility] Comment on above: Performed By: #### 2 277151 #### MARCUS [employer] [address] [place] [address] Ethanolon 12-12-2018 Ethanol [Mass/Vol] mg/dL Normal <=10 [facility] Comment on above: Performed By: #### 2 226157 #### MARCUS [employer] [address] [place] [address] Hep Func Panelon 12-12-2018 Albumin [Mass/Vol] 4.4 g/dL Normal 3.4-5.0 [facility] Comment on above: Performed By: #### 2 144639 #### MARCUS [employer] [address] [place] [address] Albumin/Globulin [Mass ratio] 1.3 {ratio} Normal 1.1-1.9 [facility] Comment on above: Performed By: #### 2 591768 #### MARCUS [employer] [address] [place] [address] Alk Phos 69 Int._Unit/L Normal 33-110 [facility] Comment on above: Performed By: #### 2 251895 #### MARCUS [employer] [address] [place] [address] ALT [Catalytic activity/Vol] 34 Int._Unit/L Normal 7-45 [facility] Comment on above: Performed By: #### 2 881938 #### MARCUS Zelaya [facility] [place] [address] AST [Catalytic activity/Vol] 69 Int._Unit/L High 9-39 [facility] Comment on above: Performed By: #### 2 396340 #### MARCUS Wilcox[address] [address] Bili Direct 0.26 mg/dL Normal 0.00-0.30 [facility] Comment on above: Performed By: #### 2 960882 #### MARCUS Wilcox[address] [address] Bili Indirect 0.57 mg/dL Normal [facility] Comment on above: Result Comment: No e stablished ranges available for the indirect bilirubin Performed By: #### 2 139201 #### MARCUS Wilcox[address] [address] Bili Total 0.83 mg/dL Normal 0.00-1.20 [facility] Comment on above: Performed By: #### 2 814947 #### MARCUS Wilcox[address] [address] Globulin (S) [Mass/Vol] 3.0 g/dL Normal 2.0-4.0 [facility] Comment on above: Performed By: #### 2 797137 #### MARCUS Wilcox[address] [address] Protein [Mass/Vol] 7.7 g/dL Normal 6.4-8.2 [facility] Comment on above: Performed By: #### 2 371702 #### MARCUS Wilcox[address] [address] Magnesiumon 12-12-2018 Magnesium [Mass/Vol] 2.0 mg/dL Normal 1.6-2.4 [facility] Comment on above: Performed By: #### 2 861634 #### MARCUSShawn Wilcox[address] [address] Troponin-Ion 12-12-2018 Troponin I.cardiac [Mass/Vol] 0.01 ng/mL Normal .00-.03 [facility] Comment on above: Performed By: #### 2 494910 #### MARCUS [employer] [address] [place] [address] U Drug Screenon 12-12-2018 U Amph Scr Negative Normal Negative [facility] Comment on above: Performed By: #### 2 677255 #### MARCUS [employer] [address] [place] [address] U Kalyani Scr Negative Normal Negative [facility] Comment on above: Performed By: #### 2 505280 #### MARCUS [facility] [address] [place] [address] U Benzodia Scr Negative Normal Negative [facility] Comment on above: Performed By: #### 2 608887 #### MARCUS [facility] [address] [place] [address] U Cannab Scr Negative Normal Negative [facility] Comment on above: Performed By: #### 2 400742 #### MARCUS [facility] [address] [place] [address] U Cocaine Scr Negative Normal Negative [facility] Comment on above: Performed By: #### 2 114508 #### MARCUS [facility] [address] [place] [address] U Opiate Scr Negative Normal Negative [facility] Comment on above: Performed By: #### 2 757511 #### MARCUS [facility] [address] [place] [address] U PCP Scr Negative Normal Negative [facility] Comment on above: Performed By: #### 2 274931 #### MARCUS [facility] [address] [place] [address] UA Completeon 12-12-2018 Color (U) Minerva Abnormal Yellow [facility] Comment on above: Performed By: #### 2 472062 #### MARCUS [facility] [address] [place] [address] Glucose (U) [Mass/Vol] Negative Normal Negative [facility] Comment on above: Performed By: #### 2 235864 #### MARCUS [facility] [address] [place] [address] Ketones Ql (U) Trace Normal [facility] Comment on above: Performed By: #### 2 952293 #### MARCUS [facility] [address] [place] [address] RBC (U) [#/Vol] 3-5 Abnormal 0-3 [facility] Comment on above: Performed By: #### 2 108339 #### MARCUS [employer] [address] [place] [address] UA Blood 2+ Abnormal Negative [facility] Comment on above: Performed By: #### 2 098047 #### MARCUS [employer] [address] [place] [address] UA Clarity Cloudy Abnormal Clear [facility] Comment on above: Performed By: #### 2 369615 #### MARCUS [employer] [address] [place] [address] UA Hyal Cast 5-10 Abnormal 0-2 [facility] Comment on above: Performed By: #### 2 874904 #### MARCUS [facility] [address] [place] [address] UA Leuk Est 3+ Abnormal Negative [facility] Comment on above: Performed By: #### 2 515352 #### MARCUS [facility] [address] [place] [address] UA Nitrite Negative Normal Negative [facility] Comment on above: Performed By: #### 2 278046 #### MARCUS [employer] [address] [place] [address] UA pH 5.0 Normal 4.6-8.0 [facility] Comment on above: Performed By: #### 2 525542 #### MARCUS [employer] [address] [place] [address] UA Protein Negative Normal Negative [facility] Comment on above: Performed By: #### 2 646323 #### MARCUS [facility] [address] [place] [address] UA Spec Grav 1.020 Normal 1.003-1.030 [facility] Comment on above: Performed By: #### 2 248374 #### MARCUS [employer] [address] [place] [address] UA Squam Epithelial 20-30 Abnormal 0-5 [facility] Comment on above: Performed By: #### 2 181743 #### MARCUS [employer] [address] [place] [address] UA Urobilinogen 2.0 mg/dL Abnormal [facility] Comment on above: Result Comment: Due to a manufacturing issue, low positive urobilinogen results may be fasely positive. Correlate with urine bilirubin and additional clinical/laboratory findings to assess the risk of hemolytic anemia or liver disease. If clinically indicated, repeat testing with an alternate method is available by contacting the laboratory within 24 hours. Performed By: #### 2 [id number] #### MARCUS Zelaya [address] [place], [place] [address] UA WBC 10-20 Abnormal 0-5 [facility] Comment on above: Performed By: #### 2 167370 #### MARCUS Zelaya [address] [place] [address] Urobilinogen Qn (U) Negative Normal Negative [facility] Comment on above: Performed By: #### 2 834477 #### MARCUS Zelaya [address] [place], [place] [address] eGFRon 12-12-2018 GFR/1.73 sq M predicted among non-blacks MDRD (S/P/Bld) [Vol rate/Area] 42 mL/min/1.73 m2 Normal [facility] Comment on above: Order Comment: With T4fr Reflex Performed By: #### 2 359282 #### [place] [address] GFR/1.73 sq M predicted among non-blacks MDRD (S/P/Bld) [Vol rate/Area] 35 mL/min/1.73 m2 Normal [facility] Comment on above: Order Comment: With T4fr Reflex Performed By: #### 2 934504 #### MARCUS [employer] [address] [place], [place] [address] Auto Diffon 12-03-2018 Basophils (Bld) [#/Vol] 0.0 E3/mcL Normal 0.0-0.2 [facility] Comment on above: Order Comment: Order added by Discern Expert. Performed By: #### 1 6381238 #### MARCUS [employer] [address] [place], [place] [address] Basophils/100 WBC (Bld) 0.6 % Normal 0.0-2.0 [facility] Comment on above: Order Comment: Order added by Discern Expert. Performed By: #### 1 [id number] #### MARCUS [employer] [address] [place] [address] Eos Absolute 0.1 E3/mcL Normal 0.0-0.7 [facility] Comment on above: Order Comment: Order added by Discern Expert. Performed By: #### 1 9572905 #### MARCUS [facility] [address] [place] [address] Eosinophils/100 WBC (Bld) 2.6 % Normal 0.0-11.0 [facility] Comment on above: Order Comment: Order added by Discern Expert. Performed By: #### 1 9443219 #### MARCUS [employer] [address] [place] [address] Lymphocytes (Bld) [#/Vol] 1.2 E3/mcL Normal 1.2-3.4 [facility] Comment on above: Order Comment: Order added by Discern Expert. Performed By: #### 1 [id number] #### MARCUS[address] [address] Lymphocytes/100 WBC (Bld) 27.2 % Normal 20.0-55.0 [facility] Comment on above: Order Comment: Order added by Discern Expert. Performed By: #### 1 4512995 #### MARCUS [employer] [address] [place] [address] Gentry Absolute 0.3 E3/mcL Normal 0.0-0.7 [facility] Comment on above: Order Comment: Order added by Discern Expert. Performed By: #### 1 [id number] #### [facility] [address] [place] [address] Monocytes/100 WBC (Bld) 7.7 % Normal 0.0-10.0 [facility] Comment on above: Order Comment: Order added by Discern Expert. Performed By: #### 1 [id number] #### MARCUS [facility] [address] [place] [address] Neutro Absolute 2.8 E3/mcL Normal 1.4-6.5 [facility] Comment on above: Order Comment: Order added by Discern Expert. Performed By: #### 1 [id number] #### MARCUS [facility] [address] [place] [address] Neutro Auto 61.9 % Normal 37.0-75.0 [facility] Comment on above: Order Comment: Order added by Discern Expert. Performed By: #### 1 [id number] #### MARCUS Zelaya [facility] [place] [address] CBC w/ Auto Diffon Erythrocyte distribution width (RBC) [Ratio] 12.9 % Normal 11.5-14.5 [facility] Comment on above: Performed By: #### 1 [id number] #### MARCUS Zelaya [facility] [place] [address] Hematocrit (Bld) [Volume fraction] 42.4 % Normal 36.0-48.0 [facility] Comment on above: Performed By: #### 1 [id number] #### MARCUS [place] [address] [place] [address] Hemoglobin (Bld) [Mass/Vol] 14.1 g/dL Normal 12.0-16.0 [facility] Comment on above: Performed By: #### 1 [id number] #### MARCUS [employer] [address] [place] [address] MCH (RBC) [Entitic mass] 30.5 pg Normal 27.0-31.0 [facility] Comment on above: Performed By: #### 1 [id number] #### MARCUS [address] [address] MCHC (RBC) [Mass/Vol] 33.3 g/dL Normal 33.0-37.0 [facility] Comment on above: Performed By: #### 1 6574849 #### MARCUS [employer] [facility] [place] [address] MCV (RBC) [Entitic vol] 91.5 fL Normal 78.0-100.0 [facility] Comment on above: Performed By: #### 1 7121733 #### MARCUS [employer] [facility] [place] [address] Platelet mean volume (Bld) [Entitic vol] 7.2 fL Low 7.4-11.0 [facility] Comment on above: Performed By: #### 1 7610122 #### MARCUS [employer] [facility] [place] [address] Platelets (Bld) [#/Vol] 121 E3/mcL Low 130-400 [facility] Comment on above: Performed By: #### 1 [id number] #### MARCUSShawn Zelaya [facility]5 [place] [address] RBC (Bld) [#/Vol] 4.64 E6/mcL Normal 3.90-5.40 [facility] Comment on above: Performed By: #### 1 [id number] #### MARCUSShawn Zelaya [facility] [place] [address] WBC (Bld) [#/Vol] 4.5 E3/mcL Normal 3.6-11.0 [facility] Comment on above: Performed By: #### 1 [id number] #### MARCUSShawn WilcoxLes[employer] [facility] [place] [address] CMPon 12-03-2018 Albumin [Mass/Vol] 3.6 g/dL Normal 3.4-5.0 [facility] Comment on above: Performed By: #### 1 [id number] #### MARCUSShawn WilcoxLes[employer] [facility] [place] [address] Albumin/Globulin [Mass ratio] 1.5 {ratio} Normal 1.1-1.9 [facility] Comment on above: Performed By: #### 1 [id number] #### MARCUSShawn WilcoxChem [facility] [place] [address] Alk Phos 69 Int._Unit/L Normal 33-110 [facility] Comment on above: Performed By: #### 1 [id number] #### MARCUSShawn [employer]Les[employer] [address] [place] [address] ALT [Catalytic activity/Vol] 13 Int._Unit/L Normal 7-45 [facility] Comment on above: Performed By: #### 1 [id number] #### MARCUS [employer] [address] [place] [address] Anion gap [Moles/Vol] 12 mmol/L Normal 10-20 [facility] Comment on above: Performed By: #### 1 [id number] #### MARCUSShawn [facility] [address] [place] [address] AST [Catalytic activity/Vol] 19 Int._Unit/L Normal 9-39 [facility] Comment on above: Performed By: #### 1 [id number] #### MARCUS [employer] [address] [place] [address] Bili Total 0.35 mg/dL Normal 0.00-1.20 [facility] Comment on above: Performed By: #### 1 [id number] #### MARCUS [employer] [address] [place] [address] Calcium [Mass/Vol] 8.3 mg/dL Low 8.6-10.3 [facility] Comment on above: Performed By: #### 1 [id number] #### MARCUS [employer] [address] [place] [address] Chloride [Moles/Vol] 110 mmol/L High 98-107 [facility] Comment on above: Performed By: #### 1 [id number] #### MARCUS [employer] [address] [place] [address] CO2 [Moles/Vol] 22.0 mmol/L Normal 21.0-32.0 [facility] Comment on above: Performed By: #### 1 [id number] #### MARCUS [employer] [address] [place] [address] Creatinine [Mass/Vol] 1.3 mg/dL High 0.5-1.1 [facility] Comment on above: Performed By: #### 1 [id number] #### MARCUS [employer] [address] [place] [address] Globulin (S) [Mass/Vol] 2.0 g/dL Normal 2.0-4.0 [facility] Comment on above: Performed By: #### 1 [id number] #### MARCUS [employer] [address] [place] [address] Glucose [Mass/Vol] 133 mg/dL High 70-99 [facility] Comment on above: Performed By: #### 1 [id number] #### MARCUS [employer] [address] [place] [address] Potassium [Moles/Vol] 4.2 mmol/L Normal 3.5-5.3 [facility] Comment on above: Performed By: #### 1 [id number] #### MARCUS [employer] [address] [place] [address] Protein [Mass/Vol] 6.0 g/dL Low 6.4-8.2 [facility] Comment on above: Performed By: #### 1 [id number] #### MARCUS [employer] [address] [place] [address] Sodium [Moles/Vol] 140 mmol/L Normal 136-145 [facility] Comment on above: Performed By: #### 1 [id number] #### MARCUS [employer] [address] [place] [address] Urea nitrogen [Mass/Vol] 9 mg/dL Normal 6-23 [facility] Comment on above: Performed By: #### 1 [id number] #### MARCUS [employer] [address] [place] [address] Urea nitrogen/Creatinine [Mass ratio] 6.9 ratio Normal 5.4-30.0 [facility] Comment on above: Performed By: #### 1 [id number] #### MARCUS [employer] [address] [place] [address] CT Abdomen/Pelvis w/o Contra ston 12-03-2018 CT Abdomen/Pelvis w/o Contrast Exam Date/Time: 12/03/2018 00:08 EST Reason for Exam: Pain Report STUDY: CT Abdomen/Pelvis w/o Contrast; 12/03/2018 12:08 am INDICATION: Pain. COMPARISON: 09/22/2018 ACCESSION NUMBER(S): [id number] ORDERING CLINICIAN: Heidy Lane TECHNIQUE: Axial noncontrast [...] by: Nicole Anderson MD Technologist: JACKSON Normal [facility] Lipase Levelon 12-03-2018 Lipase Lvl 38 Int._Unit/L Normal [facility] Comment on above: Performed By: #### 1 [id number] #### MARCUS [employer] [facility] [place] [address] U BhCG Qlton 12-03-2018 HCG.beta subunit Qn Negative Normal Neg [facility] Comment on above: Performed By: #### 1 [id number] #### MARCUS [employer] [facility] [place] [address] UA Completeon 12-03-2018 Color (U) Yellow Normal Yellow [facility] Comment on above: Performed By: #### 1 [id number] #### MARCUS [employer] [address] [place] [address] Glucose (U) [Mass/Vol] Negative Normal Negative [facility] Comment on above: Performed By: #### 1 [id number] #### MARCUS [employer] [address] [place] [address] Ketones Ql (U) Negative Normal Negative [facility] Comment on above: Performed By: #### 1 [id number] #### MARCUS [employer] [facility] [place] [address] RBC (U) [#/Vol] 3-5 Abnormal 0-3 [facility] Comment on above: Performed By: #### 1 [id number] #### MARCUS [employer] [address] [place] [address] UA Blood Negative Normal Negative [facility] Comment on above: Performed By: #### 1 [id number] #### MARCUS [employer] [address] [place] [address] UA Bacteria 1+ /HPF Abnormal None [facility] Comment on above: Performed By: #### 1 [id number] #### MARCUS [employer] [address] [place] [address] UA Clarity SltCloudy Abnormal Clear [facility] Comment on above: Performed By: #### 1 [id number] #### MARCUS [employer] [address] [place] [address] UA Leuk Est Trace Normal Negative [facility] Comment on above: Performed By: #### 1 [id number] #### MARCUS [employer] [facility] [place] [address] UA Nitrite Negative Normal Negative [facility] Comment on above: Performed By: #### 1 [id number] #### MARCUS [employer] [address] [place] [address] UA pH 6.0 Normal 4.6-8.0 [facility] Comment on above: Performed By: #### 1 [id number] #### MARCUS [employer] [facility] [place] [address] UA Protein Negative Normal Negative [facility] Comment on above: Performed By: #### 1 [id number] #### MARCUS [employer] [address] [place] [address] UA Spec Grav 1.016 Normal 1.003-1.030 [facility] Comment on above: Performed By: #### 1 [id number] #### MARCUS [employer] [address] [place] [address] UA Squam Epithelial 10-20 Abnormal 0-5 [facility] Comment on above: Performed By: #### 1 [id number] #### MARCUS [employer] [facility] [place] [address] UA Urobilinogen Negative Normal [facility] Comment on above: Result Comment: Due to a manufacturing issue, low positive urobilinogen results may be fasely positive. Correlate with urine bilirubin and additional clinical/laboratory findings to assess the risk of hemolytic anemia or liver disease. If clinically indicated, repeat testing with an alternate method is available by contacting the laboratory within 24 hours. Performed By: #### 1 [id number] #### MARCUS [employer] [address] [place] [address] UA WBC 5-10 Abnormal 0-5 [facility] Comment on above: Performed By: #### 1 [id number] #### MARCUS [employer] [facility] [place] [address] Urobilinogen Qn (U) Negative Normal Negative [facility] Comment on above: Performed By: #### 1 [id number] #### MARCUS [employer] [facility] [place] [address] eGFRon 12-03-2018 GFR/1.73 sq M predicted among non-blacks MDRD (S/P/Bld) [Vol rate/Area] 56 mL/min/1.73 m2 Normal [facility] Comment on above: Order Comment: Order added by Discern Expert. Performed By: #### 1 [id number] #### MARCUS [employer] [facility] [place] [address] GFR/1.73 sq M predicted among non-blacks MDRD (S/P/Bld) [Vol rate/Area] 46 mL/min/1.73 m2 Normal [facility] Comment on above: Order Comment: Order added by Discern Expert. Performed By: #### 1 [id number] #### MARCUS [employer] [address] [place] [address] Head or Brain w/ + w/o Co ntraston 12-01-2018 CT Head or Brain w/ + w/o Contrast Exam Date/Time: 12/01/2018 12:05 EST Reason for Exam: ABN GAIT Report STUDY: CT Head or Brain w/ + w/o Contrast; 12/01/2018 12:05 pm INDICATION: ABN GAIT. COMPARISON: 04/29/2016 ACCESSION NUMBER(S): [id number] ORDERING CLINICIAN: Ana Hodge TECHNIQUE: Axial images [...] by: Andrey Sunshine MD Technologist: TRAVIS, Normal [facility] Rapid Strep A Screenon 11-27 S. pyogenes Ag IA Ql (Unsp spec) Negative [facility] Comment on above: Performed By: #### 1 [id number] #### MARCUS [employer] [address] [place] [address] Lipid Panelon 11-22-2018 Cholesterol in HDL mass conc 43 mg/dL 40 - 59 mg/dL [facility] Cholesterol in LDL mass conc 163 mg/dL High 10 - 150 mg/dL [facility] Cholesterol in VLDL mass conc 41 mg/dL High 5 - 40 mg/dL [facility] Cholesterol mass conc 247 mg/dL High 100 - 199 mg/dL [facility] Cholesterol.total/Cho lesterol in HDL mass ratio 5.7 {ratio} High [facility] Comment on above: Female Coronary Hear t Disease Risk Factor (CHDRF): Average risk= 4.4 1/2 Average risk= 3.3 2 times Average risk= 7.1 Interpretation and review of laboratory results Abnormal [facility] Triglyceride mass conc 206 mg/dL High 30 - 150 mg/dL [facility] Cholesterol in HDL mass conc 43 mg/dL Normal 40-59 [facility] Comment on above: Performed By: #### G LUX #### Unless otherwise noted, all testing performed by [place] [id number] CLIA: [id number] [employer] Machine Operator: Ismael Torre M.D. Cholesterol in LDL mass conc 163 mg/dL High 10-150 [facility] Comment on above: Performed By: #### G LUX #### Unless otherwise noted, all testing performed by [place] [address] CLIA: [id number] [employer] Operator: Ismael Torre M.D. Cholesterol in VLDL mass conc 41 mg/dL High 5-40 [facility] Comment on above: Performed By: #### G LUX #### Unless otherwise noted, all testing performed by [place] [address] CLIA: [id number] [employer] Operator: Ismael Torre M.D. Cholesterol mass conc 247 mg/dL High 100-199 [facility] Comment on above: Performed By: #### G LUX #### Unless otherwise noted, all testing performed by [place] [phone] CLIA: [id number] [employer] Operator: Ismael Torre M.D. Cholesterol.total/Cho lesterol in HDL mass ratio 5.7 {ratio} High 3.2-5.0 [facility] Comment on above: Result Comment: Hans smith Coronary Heart Disease Risk Factor (CHDRF): Average risk= 4.4 1/2 Average risk= 3.3 2 times Average risk= 7.1 Performed By: #### G LUX #### Unless otherwise noted, all testing performed by [place] [address] CLIA: [id number] [employer] Operator: Ismael Torre M.D. Triglyceride mass conc 206 mg/dL High 30-150 [facility] Comment on above: Performed By: #### G LUX #### Unless otherwise noted, all testing performed by [place] [address] CLIA: [id number] [employer] Operator: Ismael Torre M.D. Auto Diffon 11-17-2018 Basophils (Bld) [#/Vol] 0.0 E3/mcL Normal 0.0-0.2 [facility] Comment on above: Order Comment: Order Added by Discern Expert. Performed By: #### 2 [id number] #### MARCUS [facility] [address] [place] [address] Basophils/100 WBC (Bld) 0.3 % Normal 0.0-2.0 [facility] Comment on above: Order Comment: Order Added by Discern Expert. Performed By: #### 2 [id number] #### MARCUS [facility] [address] [place] [address] Eos Absolute 0.1 E3/mcL Normal 0.0-0.7 [facility] Comment on above: Order Comment: Order Added by Discern Expert. Performed By: #### 2 [id number] #### MARCUS [employer] [address] [place] [address] Eosinophils/100 WBC (Bld) 2.4 % Normal 0.0-11.0 [facility] Comment on above: Order Comment: Order Added by Discern Expert. Performed By: #### 2 [id number] #### MARCUS [employer] [address] [place] [address] Lymphocytes (Bld) [#/Vol] 1.2 E3/mcL Normal 1.2-3.4 [facility] Comment on above: Order Comment: Order Added by Discern Expert. Performed By: #### 2 [id number] #### MARCUS [employer] [address] [place] [address] Lymphocytes/100 WBC (Bld) 27.6 % Normal 20.0-55.0 [facility] Comment on above: Order Comment: Order Added by Discern Expert. Performed By: #### 2 [id number] #### MARCUS [employer] [address] [place] [address] Gentry Absolute 0.4 E3/mcL Normal 0.0-0.7 [facility] Comment on above: Order Comment: Order Added by Discern Expert. Performed By: #### 2 [id number] #### MARCUS [employer] [address] [place] [address] Monocytes/100 WBC (Bld) 8.8 % Normal 0.0-10.0 [facility] Comment on above: Order Comment: Order Added by Discern Expert. Performed By: #### 2 552731 #### MARCUS [employer] [address] [place] [address], [place] [address] Neutro Absolute 2.5 E3/mcL Normal 1.4-6.5 [facility] Comment on above: Order Comment: Order Added by Discern Expert. Performed By: #### 2 [id number] #### MARCUS [facility] [address] [place] [address] Neutro Auto 60.4 % Normal 37.0-75.0 [facility] Comment on above: Order Comment: Order Added by Discern Expert. Performed By: #### 2 778438 #### MARCUS [employer] [address] [place] [address] BMPon 11-17-2018 Anion gap [Moles/Vol] 11 mmol/L Normal 10-20 [facility] Comment on above: Performed By: #### 2 [id number] #### MARCUS [employer] [facility] [place] [address] Calcium [Mass/Vol] 8.7 mg/dL Normal 8.6-10.3 [facility] Comment on above: Performed By: #### 2 [id number] #### MARCUS [employer] [facility] [place] [address] Chloride [Moles/Vol] 108 mmol/L High 98-107 [facility] Comment on above: Performed By: #### 2 691620 #### MARCUS [employer] [address] [place] [address] CO2 [Moles/Vol] 21.0 mmol/L Normal 21.0-32.0 [facility] Comment on above: Performed By: #### 2 100200 #### MARCUS [employer] [address] [place] [address] Creatinine [Mass/Vol] 1.2 mg/dL High 0.5-1.1 [facility] Comment on above: Performed By: #### 2 347952 #### MARCUS [employer] [address] [place] [address] Glucose [Mass/Vol] 103 mg/dL High 70-99 [facility] Comment on above: Performed By: #### 2 286846 #### MARCUSShawn [facility] [address] [place] [address] Potassium [Moles/Vol] 3.7 mmol/L Normal 3.5-5.3 [facility] Comment on above: Performed By: #### 2 111862 #### MARCUS [employer] [address] [place] [address] Sodium [Moles/Vol] 136 mmol/L Normal 136-145 [facility] Comment on above: Performed By: #### 2 784708 #### MARCUS [employer] [address] [place] [address] Urea nitrogen [Mass/Vol] 15 mg/dL Normal 6-23 [facility] Comment on above: Performed By: #### 2 831201 #### MARCUS [employer] [address] [place] [address] Urea nitrogen/Creatinine [Mass ratio] 12.5 ratio Normal 5.4-30.0 [facility] Comment on above: Performed By: #### 2 [id number] #### MARCUS [employer] [facility] [place] [address] CBC w/ Auto Diffon Erythrocyte distribution width (RBC) [Ratio] 13.2 % Normal 11.5-14.5 [facility] Comment on above: Performed By: #### 2 448275 #### MARCUS [employer] [address] [place] [address] Hematocrit (Bld) [Volume fraction] 41.0 % Normal 36.0-48.0 [facility] Comment on above: Performed By: #### 2 [id number] #### MARCUS [employer] [address] [place] [address] Hemoglobin (Bld) [Mass/Vol] 13.8 g/dL Normal 12.0-16.0 [facility] Comment on above: Performed By: #### 2 248129 #### MARCUS [employer] [address] [place] [address] MCH (RBC) [Entitic mass] 30.9 pg Normal 27.0-31.0 [facility] Comment on above: Performed By: #### 2 723355 #### MARCUS [employer] [address] [place] [address] MCHC (RBC) [Mass/Vol] 33.6 g/dL Normal 33.0-37.0 [facility] Comment on above: Performed By: #### 2 [id number] #### MARCUS [facility] [address] [place] [address] MCV (RBC) [Entitic vol] 91.9 fL Normal 78.0-100.0 [facility] Comment on above: Performed By: #### 2 596611 #### MARCUS [employer] [address] [place] [address] Platelet mean volume (Bld) [Entitic vol] 7.6 fL Normal 7.4-11.0 [facility] Comment on above: Performed By: #### 2 868441 #### MARCUS [employer] [address] [place] [address] Platelets (Bld) [#/Vol] 82 E3/mcL Low 130-400 [facility] Comment on above: Performed By: #### 2 107896 #### MARCUS [employer] [address] [place] [address] RBC (Bld) [#/Vol] 4.46 E6/mcL Normal 3.90-5.40 [facility] Comment on above: Performed By: #### 2 890731 #### MARCUS [employer] [address] [place] [address] WBC (Bld) [#/Vol] 4.2 E3/mcL Normal 3.6-11.0 [facility] Comment on above: Performed By: #### 2 804962 #### MARCUS [employer] [address] [place] [address] Hep Func Panelon 11-17-2018 Albumin [Mass/Vol] 3.8 g/dL Normal 3.4-5.0 [facility] Comment on above: Performed By: #### 2 905255 #### MARCUS [facility] [address] [place] [address] Albumin/Globulin [Mass ratio] 1.8 {ratio} Normal 1.1-1.9 [facility] Comment on above: Performed By: #### 2 [id number] #### MARCUS [employer] [address] [place] [address] Alk Phos 59 Int._Unit/L Normal 33-110 [facility] Comment on above: Performed By: #### 2 [id number] #### MARCUS [address] [address] ALT [Catalytic activity/Vol] 18 Int._Unit/L Normal 7-45 [facility] Comment on above: Performed By: #### 2 522506 #### MARCUS [place] [address] [place] [address] AST [Catalytic activity/Vol] 28 Int._Unit/L Normal 9-39 [facility] Comment on above: Performed By: #### 2 313136 #### MARCUS [address] [address] Bili Direct 0.07 mg/dL Normal 0.00-0.30 [facility] Comment on above: Performed By: #### 2 150501 #### MARCUS [address] [address] Bili Indirect 0.38 mg/dL Normal [facility] Comment on above: Result Comment: No e stablished ranges available for the indirect bilirubin Performed By: #### 2 245877 #### [place]ARC[place] [id number] Bili Total 0.45 mg/dL Normal 0.00-1.20 [facility] Comment on above: Performed By: #### 2 988629 #### MARCUSShawn Wilcox[address] [address] Globulin (S) [Mass/Vol] 2.0 g/dL Normal 2.0-4.0 [facility] Comment on above: Performed By: #### 2 329704 #### MARCUSShawn Wilcox[address] [address] Protein [Mass/Vol] 5.9 g/dL Low 6.4-8.2 [facility] Comment on above: Performed By: #### 2 [id number] #### MARCUSShawn Wilcox[address] [address] Lipase Levelon 11-17-2018 Lipase Lvl 48 Int._Unit/L Normal 9-82 [facility] Comment on above: Performed By: #### 2 803974 #### MARCUSShawn Wilcox[address] [address] Morphon 11-17-2018 RBC morphology finding Nom (Bld) NORMAL Normal [facility] Comment on above: Order Comment: Order Added by Discern Expert. Performed By: #### 2 375290 #### MARCUS [employer] [address] [place] [address] U BhCG Qlton 11-17-2018 HCG.beta subunit Qn Negative Normal Neg [facility] Comment on above: Performed By: #### 2 866981 #### MARCUS [employer] [address] [place] [address] UA Completeon 11-17-2018 Color (U) Straw Normal Yellow [facility] Comment on above: Performed By: #### 2 437462 #### MARCUS [facility] [address] [place] [address] Glucose (U) [Mass/Vol] Negative Normal Negative [facility] Comment on above: Performed By: #### 2 506264 #### MARCUS [facility] [address] [place] [address] Ketones Ql (U) Negative Normal Negative [facility] Comment on above: Performed By: #### 2 130449 #### MARCUS [employer] [address] [place] [address] UA Blood Negative Normal Negative [facility] Comment on above: Performed By: #### 2 066775 #### MARCUS [employer] [address] [place] [address] UA Clarity Clear Normal Clear [facility] Comment on above: Performed By: #### 2 679424 #### MARCUS [employer] [address] [place] [address] UA Leuk Est Negative Normal Negative [facility] Comment on above: Performed By: #### 2 502239 #### MARCUS [employer] [address] [place] [address] UA Nitrite Negative Normal Negative [facility] Comment on above: Performed By: #### 2 984241 #### MARCUS [employer] [address] [place] [address] UA pH 6.0 Normal 4.6-8.0 [facility] Comment on above: Performed By: #### 2 358426 #### MARCUS [employer] [address] [place] [address] UA Protein Negative Normal Negative [facility] Comment on above: Performed By: #### 2 445939 #### MARCUS [employer] [facility] [place] [address] UA Spec Grav 1.009 Normal 1.003-1.030 [facility] Comment on above: Performed By: #### 2 932222 #### MARCUS [employer] [facility] [place] [address] UA Squam Epithelial 0-5 Normal 0-5 [facility] Comment on above: Performed By: #### 2 436539 #### MARCUS [employer] [facility] [place] [address] UA Urobilinogen Negative Normal [facility] Comment on above: Result Comment: Due to a manufacturing issue, low positive urobilinogen results may be fasely positive. Correlate with urine bilirubin and additional clinical/laboratory findings to assess the risk of hemolytic anemia or liver disease. If clinically indicated, repeat testing with an alternate method is available by contacting the laboratory within 24 hours. Performed By: #### 2 746984 #### MARCUS [employer] [facility] [place] [address] UA WBC 0-5 Normal 0-5 [facility] Comment on above: Performed By: #### 2 365634 #### MARCUS [employer] [address] [place] [address] Urobilinogen Qn (U) Negative Normal Negative [facility] Comment on above: Performed By: #### 2 222844 #### MARCUS [employer] [address] [place] [address] eGFRon 11-17-2018 GFR/1.73 sq M predicted among non-blacks MDRD (S/P/Bld) [Vol rate/Area] 56 mL/min/1.73 m2 [facility] Comment on above: Order Comment: Order added by Discern Expert. Performed By: #### 2 200177 #### MARCUS [employer] [address] [place] [address] GFR/1.73 sq M predicted among non-blacks MDRD (S/P/Bld) [Vol rate/Area] 46 mL/min/1.73 m2 [facility] Comment on above: Order Comment: Order added by Discern Expert. Performed By: #### 2 485179 #### MARCUS [facility] [address] [place] [address] zzplt morphon 11-17-2018 Platelet morphology finding Nom (Bld) ENLARGED Normal [facility] Comment on above: Performed By: #### 2 372891 #### MARCUS [facility] [address] [place] [address] Platelets (Bld) [#/Vol] DECREASED Normal [facility] Comment on above: Performed By: #### 2 321694 #### MARCUS [employer] [address] [place] [address] Lab Miscellaneouson 10-28-19 19 Status See Ref Lab Report Normal [facility] Comment on above: Performed By: #### 2 872902 #### MARCUS [employer] [address] [place] [address] CBC w/ Auto Diffon Erythrocyte distribution width (RBC) [Ratio] 13.2 % Normal 11.5-14.5 [facility] Comment on above: Performed By: #### 2 554659 #### MARCUS [employer] [address] [place] [address] Hematocrit (Bld) [Volume fraction] 44.4 % Normal 36.0-48.0 [facility] Comment on above: Performed By: #### 2 300604 #### MARCUS [employer] [address] [place] [address] Hemoglobin (Bld) [Mass/Vol] 14.8 g/dL Normal 12.0-16.0 [facility] Comment on above: Performed By: #### 2 940501 #### MARCUS [employer] [address] [place] [address] MCH (RBC) [Entitic mass] 30.7 pg Normal 27.0-31.0 [facility] Comment on above: Performed By: #### 2 076438 #### MARCUS [employer] [address] [place] [address] MCHC (RBC) [Mass/Vol] 33.3 g/dL Normal 33.0-37.0 [facility] Comment on above: Performed By: #### 2 810297 #### MARCUS [employer] [address] [place] [address] MCV (RBC) [Entitic vol] 92.1 fL Normal 78.0-100.0 [facility] Comment on above: Performed By: #### 2 788920 #### MARCUS [employer] [address] [place] [address] Platelet mean volume (Bld) [Entitic vol] 7.8 fL Normal 7.4-11.0 [facility] Comment on above: Performed By: #### 2 171479 #### MARCUS [employer] [address] [place] [address] Platelets (Bld) [#/Vol] 93 E3/mcL Low 130-400 [facility] Comment on above: Performed By: #### 2 874261 #### MARCUS [employer] [address] [place] [address] RBC (Bld) [#/Vol] 4.82 E6/mcL Normal 3.90-5.40 [facility] Comment on above: Performed By: #### 2 488318 #### MARCUS [employer] [address] [place] [address] WBC (Bld) [#/Vol] 4.7 E3/mcL Normal 3.6-11.0 [facility] Comment on above: Performed By: #### 2 221660 #### MARCUS [employer] [address] [place] [address] CMPon 10-26-2018 Albumin [Mass/Vol] 4.2 g/dL Normal 3.4-5.0 [facility] [facility] Comment on above: Performed By: #### 2 [id number] #### MARCUS RemHemo [address] [place] [address] Albumin/Globulin [Mass ratio] 1.6 {ratio} Normal 1.1-1.9 [facility] Comment on above: Performed By: #### 2 [id number] #### MARCUS RemHemo [address] [place] [address] Alk Phos 66 Int._Unit/L Normal 33-110 [facility] Comment on above: Performed By: #### 2 [id number] #### MARCUS WilcoxHemo [address] [place] [address] ALT [Catalytic activity/Vol] 22 Int._Unit/L Normal 7-45 [facility] Comment on above: Performed By: #### 2 [id number] #### MARCUS WilcoxHemo [address] [place] [address] Anion gap [Moles/Vol] 12 mmol/L Normal 10-20 [facility] Comment on above: Performed By: #### 2 [id number] #### MARCUS WilcoxHemo [address] [place] [address] AST [Catalytic activity/Vol] 33 Int._Unit/L Normal 9-39 [facility] Comment on above: Performed By: #### 2 [id number] #### MARCUS WilcoxHemo [address] [place] [address] Bili Total 0.38 mg/dL Normal 0.00-1.20 [facility] Comment on above: Performed By: #### 2 [id number] #### MARCUS WilcoxHemo [address] [place] [address] Calcium [Mass/Vol] 9.2 mg/dL Normal 8.6-10.3 [facility] Comment on above: Performed By: #### 2 785836 #### MARCUS WilcoxHemo [address] [place] [address] Chloride [Moles/Vol] 110 mmol/L High 98-107 [facility] Comment on above: Performed By: #### 2 601687 #### MARCUS RemHemo [address] [place] [address] CO2 [Moles/Vol] 24.0 mmol/L Normal 21.0-32.0 [facility] Comment on above: Performed By: #### 2 [id number] #### MARCUS RemHemo [address] [place] [address] Creatinine [Mass/Vol] 1.5 mg/dL High 0.5-1.1 [facility] Comment on above: Performed By: #### 2 [id number] #### MARCUS RemHemo [address] [place] [address] Globulin (S) [Mass/Vol] 3.0 g/dL Normal 2.0-4.0 [facility] Comment on above: Performed By: #### 2 719563 #### MARCUS WilcoxHemo [address] [place] [address] Glucose [Mass/Vol] 97 mg/dL Normal 70-99 [facility] Comment on above: Performed By: #### 2 [id number] #### MARCUS WilcoxHemo [address] [place] [address] Potassium [Moles/Vol] 4.9 mmol/L Normal 3.5-5.3 [facility] Comment on above: Performed By: #### 2 095555 #### MARCUS WilcoxHemo [address] [place] [address] Protein [Mass/Vol] 6.9 g/dL Normal 6.4-8.2 [facility] Comment on above: Performed By: #### 2 559781 #### MARCUS WilcoxHemo [address] [place] [address] Sodium [Moles/Vol] 141 mmol/L Normal 136-145 [facility] Comment on above: Performed By: #### 2 931196 #### MARCUS WilcoxHemo [address] [place] [address] Urea nitrogen [Mass/Vol] 17 mg/dL Normal 6-23 [facility] Comment on above: Performed By: #### 2 [id number] #### MARCUS WilcoxHemo [address] [place] [address] Urea nitrogen/Creatinine [Mass ratio] 11.3 ratio Normal 5.4-30.0 [facility] Comment on above: Performed By: #### 2 008638 #### MARCUS WilcoxHemo [address] [place] [address] Lab Miscellaneouson 10-26-19 19 Test Name topamax Normal [facility] Comment on above: Performed By: #### 2 [id number] #### MARCUS WilcoxHemo [address] [place] [address] Manual Diffon 10-26-2018 Band form neutrophils/100 WBC (Bld) 1 Normal 0-1 [facility] Comment on above: Order Comment: Order Added by Discern Expert. Performed By: #### 2 [id number] #### MARCUS RemHemo [address] [place] [address] Basophil Man 0 % Normal 0-1 [facility] Comment on above: Order Comment: Order Added by Discern Expert. Performed By: #### 2 [id number] #### MARCUS RemHemo [address] [place] [address] Eosinophils/100 WBC (Bld) 3 % Normal 0-5 [facility] Comment on above: Order Comment: Order Added by Discern Expert. Performed By: #### 2 948121 #### MARCUS RemHemo [address] [place] [address] Lymphocytes/100 WBC (Bld) 37 % Normal 14-48 [facility] Comment on above: Order Comment: Order Added by Discern Expert. Performed By: #### 2 [id number] #### MARCUS RemHemo [address] [place] [address] Monocyte Man 8 % Normal 1-11 [facility] Comment on above: Order Comment: Order Added by Discern Expert. Performed By: #### 2 [id number] #### MARCUS RemHemo [address] [place] [address] RBC morphology finding Nom (Bld) NORMAL Normal [facility] Comment on above: Order Comment: Order Added by Discern Expert. Performed By: #### 2 [id number] #### MARCUS RemHemo [address] [place] [address] Segs Man 51 % Normal 37-75 [facility] Comment on above: Order Comment: Order Added by Discern Expert. Performed By: #### 2 [id number] #### MARCUS RemHemo [address] [place] [address] Valproic Acidon 10-26-2018 Valpro Acid Lvl 91 microgram/mL Normal 50-100 [facility] Comment on above: Performed By: #### 2 404224 #### MARCUS WilcoxHemo [address] [place] [address] eGFRon 10-26-2018 GFR/1.73 sq M predicted among non-blacks MDRD (S/P/Bld) [Vol rate/Area] 45 mL/min/1.73 m2 Normal [facility] Comment on above: Order Comment: Order Added by Discern Expert. Performed By: #### 2 [id number] #### MARCUS JeriHemo [address] [place] [address] GFR/1.73 sq M predicted among non-blacks MDRD (S/P/Bld) [Vol rate/Area] 37 mL/min/1.73 m2 Normal [facility] Comment on above: Order Comment: Order Added by Discern Expert. Performed By: #### 2 120348 #### MARCUS JeriHemo [address] [place] [id number] zzplt morphon 10-26-2018 Platelet morphology finding Nom (Bld) NORMAL Normal [facility] Comment on above: Performed By: #### 2 [id number] #### MARCUS JeriHemo [facility] [place] [id number] Platelets (Bld) [#/Vol] DECREASED Normal [facility] Comment on above: Performed By: #### 2 701430 #### MARCUS JeriHemo [address] [place] [id number] UA Completeon 10-14-2018 Color (U) Yellow Normal Yellow [facility] Comment on above: Performed By: #### 2 078435 #### MARCUS JeriHemo [address] [place] [id number] Glucose (U) [Mass/Vol] Negative Normal Negative [facility] Comment on above: Performed By: #### 2 555713 #### MARCUS JeriHemo [address] [place] [address] Ketones Ql (U) Negative Normal Negative [facility] Comment on above: Performed By: #### 2 347163 #### MARCUS JeriHemo [address] [place] [address] RBC (U) [#/Vol] 10-20 Abnormal 0-3 [facility] Comment on above: Performed By: #### 2 819429 #### MARCUS RemHemo [address] [place] [address] UA Blood Negative Normal Negative [facility] Comment on above: Performed By: #### 2 771182 #### MARCUS RemHemo [address] [place] [address] UA Clarity Cloudy Abnormal Clear [facility] Comment on above: Performed By: #### 2 717999 #### MARCUS RemHemo [address] [place] [address] UA Hyal Cast 5-10 Abnormal 0-2 [facility] Comment on above: Performed By: #### 2 668527 #### MARCUS RemHemo [address] [place] [address] UA Leuk Est 3+ Abnormal Negative [facility] Comment on above: Performed By: #### 2 572555 #### MARCUS RemHemo [address] [place] [address] UA Mucous Trace Abnormal Trace [facility] Comment on above: Performed By: #### 2 076152 #### MARCUS RemHemo [address] [place] [address] UA Nitrite Negative Normal Negative [facility] Comment on above: Performed By: #### 2 730763 #### MARCUS RemHemo [address] [place] [address] UA pH 7.0 Normal 4.6-8.0 [facility] Comment on above: Performed By: #### 2 617996 #### MARCUS RemHemo [address] [place] [address] UA Protein Negative Normal Negative [facility] Comment on above: Performed By: #### 2 665930 #### MARCUS RemHemo [address] [place] [address] UA Spec Grav 1.016 Normal 1.003-1.030 [facility] Comment on above: Performed By: #### 2 586745 #### MARCUS RemHemo [address] [place] [id number] UA Squam Epithelial >30 Abnormal 0-5 [facility] Comment on above: Performed By: #### 2 987745 #### MARCUS RemHemo [address] [place] [id number] UA Urobilinogen Negative Normal [facility] Comment on above: Result Comment: Due to a manufacturing issue, low positive urobilinogen results may be fasely positive. Correlate with urine bilirubin and additional clinical/laboratory findings to assess the risk of hemolytic anemia or liver disease. If clinically indicated, repeat testing with an alternate method is available by contacting the laboratory within 24 hours. Performed By: #### 2 551886 #### MARCUS Kenyono [facility] [place] [id number] UA WBC 10-20 Abnormal 0-5 [facility] Comment on above: Performed By: #### 2 853246 #### MARCUS Kenyono [facility] [place] [address] Urobilinogen Qn (U) Negative Normal Negative [facility] Comment on above: Performed By: #### 2 124699 #### MARCUS Kenyono [address] [place], [place] [address] XR Spine Lumbosacral 2 or 3 Viewson 10-14-2018 XR Spine Lumbosacral 2 or 3 Views Exam Date/Time: 10/14/2018 15:28 EST Reason for Exam: Back pain Report STUDY: XR Spine Lumbosacral 2 or 3 Views; 10/14/2018 3:28 pm INDICATION: Back pain. COMPARISON: 01/21/2017 ACCESSION NUMBER(S): [id number] ORDERING CLINICIAN: Moi De La Cruz FINDINGS: [...] pm Signed by: Bhupinder Bridges MD Technologist: [facility] Normal [facility] .Manual Abson 10-02-2018 Basophil Abs Man 0.0 10x3/ Normal 0.0-0.2 [facility] Comment on above: Order Comment: Order Added by Discern Expert. Performed By: #### 9 [id number] #### MARCUSShawn WilcoxHemo [facility] [place] [id number] Eos Abs Man 0.1 10x3/ Normal 0.0-0.5 [facility] Comment on above: Order Comment: Order Added by Discern Expert. Performed By: #### 9 [id number] #### MARCUS WilcoxHemo [address] [place] [address] Lymph Abs Man 2.0 10x3/ Normal 1.2-3.4 [facility] Comment on above: Order Comment: Order Added by Discern Expert. Performed By: #### 9 [id number] #### MARCUS WilcoxHemo [address] [place] [address] Gentry Abs Man 0.5 10x3/ Normal 0.0-0.7 [facility] Comment on above: Order Comment: Order Added by Discern Expert. Performed By: #### 9 [id number] #### MARCUS WilcoxHemo [address] [place] [address] Segs Abs Man 2.3 10x3/ Normal 1.4-6.5 [facility] Comment on above: Order Comment: Order Added by Discern Expert. Performed By: #### 9 [id number] #### MARCUS WilcoxHemo [address] [place] [address] BMPon 10-02-2018 Anion gap [Moles/Vol] 9 mmol/L Low 10-20 [facility] Comment on above: Performed By: #### 9 [id number] #### MARCUS WilcoxHemo [address] [place] [address] Calcium [Mass/Vol] 8.4 mg/dL Low 8.6-10.3 [facility] Comment on above: Performed By: #### 9 [id number] #### MARCUS WilcoxHemo [address] [place] [address] Chloride [Moles/Vol] 111 mmol/L High 98-107 [facility] Comment on above: Performed By: #### 9 7958619 #### MARCUS RemHemo [address] [place] [address] CO2 [Moles/Vol] 22.0 mmol/L Normal 21.0-32.0 [facility] Comment on above: Performed By: #### 9 [id number] #### MARCUS RemHemo [address] [place] [address] Creatinine [Mass/Vol] 1.3 mg/dL High 0.5-1.1 [facility] Comment on above: Performed By: #### 9 [id number] #### MARCUS RemHemo [address] [place] [address] Glucose [Mass/Vol] 88 mg/dL Normal 70-99 [facility] Comment on above: Performed By: #### 9 [id number] #### MARCUS RemHemo [address] [place] [address] Potassium [Moles/Vol] 4.2 mmol/L Normal 3.5-5.3 [facility] Comment on above: Performed By: #### 9 7519153 #### MARCUS RemHemo [address] [place] [address] Sodium [Moles/Vol] 138 mmol/L Normal 136-145 [facility] Comment on above: Performed By: #### 9 [id number] #### MARCUS RemHemo [address] [place] [address] Urea nitrogen [Mass/Vol] 16 mg/dL Normal 6-23 [facility] Comment on above: Performed By: #### 9 [id number] #### MARCUS RemHemo [address] [place] [address] Urea nitrogen/Creatinine [Mass ratio] 12.3 ratio Normal 5.4-30.0 [facility] Comment on above: Performed By: #### 9 [id number] #### MARCUS RemHemo [address] [place] [address] CBC w/ Auto Diffon 8 Erythrocyte distribution width (RBC) [Ratio] 13.1 % Normal 11.5-14.5 [facility] Comment on above: Performed By: #### 9 [id number] #### MARCUS RemHemo [address] [place] [address] Hematocrit (Bld) [Volume fraction] 40.9 % Normal 36.0-48.0 [facility] Comment on above: Performed By: #### 9 [id number] #### MARCUS RemHemo [address] [place] [address] Hemoglobin (Bld) [Mass/Vol] 13.7 g/dL Normal 12.0-16.0 [facility] Comment on above: Performed By: #### 9 7757359 #### MARCUS WilcoxHemo [address] [place] [address] MCH (RBC) [Entitic mass] 31.0 pg Normal 27.0-31.0 [facility] Comment on above: Performed By: #### 9 [id number] #### MARCUS WilcoxHemo [address] [place] [address] MCHC (RBC) [Mass/Vol] 33.7 g/dL Normal 33.0-37.0 [facility] Comment on above: Performed By: #### 9 [id number] #### MARCUS WilcoxHemo [facility] [place] [address] MCV (RBC) [Entitic vol] 92.1 fL Normal 78.0-100.0 [facility] Comment on above: Performed By: #### 9 [id number] #### MARCUS JeriHemo [facility] [place] [address] Platelet mean volume (Bld) [Entitic vol] 8.4 fL Normal 7.4-11.0 [facility] Comment on above: Performed By: #### 9 [id number] #### MARCUS WilcoxHemo [facility] [place] [address] Platelets (Bld) [#/Vol] 82 E3/mcL Low 130-400 [facility] Comment on above: Performed By: #### 9 [id number] #### MARCUS RemHemo [address] [place] [address] RBC (Bld) [#/Vol] 4.44 E6/mcL Normal 3.90-5.40 [facility] Comment on above: Performed By: #### 9 4048935 #### MARCUS RemHemo [address] [place] [address] WBC (Bld) [#/Vol] 5.3 E3/mcL Normal 3.6-11.0 [facility] Comment on above: Performed By: #### 9 7203987 #### MARCUS WilcoxHemo [address] [place] [address] Magnesiumon 10-02-2018 Magnesium [Mass/Vol] 1.9 mg/dL Normal 1.6-2.4 [facility] Comment on above: Performed By: #### 9 [id number] #### MARCUS WilcoxHemo [address] [place] [address] Manual Diffon 10-02-2018 Anisocytosis Ql (Bld) 2+ Normal [facility] Comment on above: Order Comment: Order Added by Discern Expert. Performed By: #### 9 [id number] #### MARCUS WilcoxHemo [address] [place] [address] Band form neutrophils/100 WBC (Bld) 6 High 0-1 [facility] Comment on above: Order Comment: Order Added by Discern Expert. Performed By: #### 9 [id number] #### MARCUS WilcoxHemo [address] [place] [address] Basophil Man 0 % Normal 0-1 [facility] Comment on above: Order Comment: Order Added by Discern Expert. Performed By: #### 9 [id number] #### MARCUS WilcoxHemo [address] [place] [address] Eosinophils/100 WBC (Bld) 1 % Normal 0-5 [facility] Comment on above: Order Comment: Order Added by Discern Expert. Performed By: #### 9 [id number] #### MARCUS WilcoxHemo [address] [place] [address] Lymphocytes/100 WBC (Bld) 37 % Normal 14-48 [facility] Comment on above: Order Comment: Order Added by Discern Expert. Performed By: #### 9 [id number] #### MARCUS WilcoxHemo [address] [place] [address] Carlton Man 3 % High 0-0 [facility] Comment on above: Order Comment: Order Added by Katya Expert. Performed By: #### 9 [id number] #### MARCUS RemHemo [address] [place] [address] Monocyte Man 10 % Normal 1-11 [facility] Comment on above: Order Comment: Order Added by Katya Expert. Performed By: #### 9 [id number] #### MARCUS RemHemo [address] [place] [address] Poikilocytosis 1+ Normal [facility] Comment on above: Order Comment: Order Added by Discern Expert. Performed By: #### 9 [id number] #### MARCUS WilcoxHemo [address] [place] [address] Polychromasia 1+ Normal [facility] Comment on above: Order Comment: Order Added by Discern Expert. Performed By: #### 9 [id number] #### MARCUS WilcoxHemo [address] [place] [id number] RBC morphology finding Nom (Bld) SEE MORPHOLOGY Normal [facility] Comment on above: Order Comment: Order Added by Discern Expert. Performed By: #### 9 [id number] #### MARCUS WilcoxHemo [facility] [place] [address] Segs Man 43 % Normal 37-75 [facility] Comment on above: Order Comment: Order Added by Discern Expert. Performed By: #### 9 [id number] #### MARCUS WilcoxHemo [address] [place] [address] PTon 10-02-2018 INR Coag (PPP) [Relative time] 1.1 {INR} Normal 1.0-1.2 [facility] Comment on above: Result Comment: INR Recommended Therapeuptic Ranges: Prophylaxis/treatment of DVT and PE?2.0-3.0 Prevention of systemic embolism?.2.0-3.0 Mechanical prosthetic values?2.5-3.5 CRITICAL VALUES?.>4.0 Performed By: #### 9 [id number] #### MARCUS WilcoxHemo [address] [place] [id number] PT Coag (PPP) [Time] 13.2 second(s) Normal 11.6-14.6 [facility] Comment on above: Performed By: #### 9 [id number] #### MARCUS WilcoxHemo [address] [place] [address] PTTon 10-02-2018 aPTT Coag (Bld) [Time] 28.3 second(s) Normal 23.2-36.4 [facility] Comment on above: Performed By: #### 9 [id number] #### MARCUS [facility] [place] [address] PTT Control Ratioon 10-02-20 PTT Ratio 0.9 ratio Normal 0.8-1.2 [facility] Comment on above: Order Comment: Order added by Discern Expert. Performed By: #### 9 [id number] #### MARCUS Luong [address] [place], [place] [address] Troponin-Ion 10-02-2018 Troponin I.cardiac [Mass/Vol] ng/mL Normal .00-.03 [facility] Comment on above: Performed By: #### 2 [id number] #### MARCUS Luong [address] [place] [address] Troponin I.cardiac [Mass/Vol] 0.01 ng/mL Normal .00-.03 [facility] Comment on above: Performed By: #### 9 [id number] #### MARCUS Luong [address] [place], [place] [address] XR Chest AP Portableon 10-02 XR Chest AP Portable Exam Date/Time: 10/02/2018 11:20 EST Reason for Exam: Chest pain Report STUDY: XR Chest AP Portable; 10/02/2018 11:20 am INDICATION: Chest pain. COMPARISON: 12/15/2017 ACCESSION NUMBER(S): [id number] ORDERING CLINICIAN: Moi De La Cruz FINDINGS: [...] by: Wilder Beth MD Technologist: [facility] Normal [facility] eGFRon 10-02-2018 GFR/1.73 sq M predicted among non-blacks MDRD (S/P/Bld) [Vol rate/Area] 53 mL/min/1.73 m2 Normal [facility] Comment on above: Order Comment: Order added by Discern Expert. Performed By: #### 9 [id number] #### MARCUS Luong [address] [place], [place] [address] GFR/1.73 sq M predicted among non-blacks MDRD (S/P/Bld) [Vol rate/Area] 44 mL/min/1.73 m2 Normal [facility] Comment on above: Order Comment: Order added by Discern Expert. Performed By: #### 9 [id number] #### MARCUS WilcoxHemo [address] [place] [address] C Urineon 09-24-2018 C Urine Final Report: Modera te Normal skin joe isolated Normal [facility] Comment on above: Performed By: #### 1 [id number] #### MARCUS WilcoxHemo [address] [place] [address] Auto Diffon 09-22-2018 Basophils (Bld) [#/Vol] 0.0 E3/mcL Normal 0.0-0.2 [facility] Comment on above: Order Comment: Order Added by Katya Expert. Performed By: #### 1 [id number] #### MARCUS [place] [id number] Basophils/100 WBC (Bld) 0.4 % Normal 0.0-2.0 [facility] Comment on above: Order Comment: Order Added by Katya Expert. Performed By: #### 1 [id number] #### MARCUS WilcoxHemo [address] [place] [address] Eos Absolute 0.1 E3/mcL Normal 0.0-0.7 [facility] Comment on above: Order Comment: Order Added by Discern Expert. Performed By: #### 1 [id number] #### MARCUS WilcoxHemo [address] [place], [place] [address] Eosinophils/100 WBC (Bld) 1.6 % Normal 0.0-11.0 [facility] Comment on above: Order Comment: Order Added by Katya Expert. Performed By: #### 1 [id number] #### MARCUS RemHemo [address] [place] [address] [place] [address] Lymphocytes (Bld) [#/Vol] 2.0 E3/mcL Normal 1.2-3.4 [facility] Comment on above: Order Comment: Order Added by Discern Expert. Performed By: #### 1 [id number] #### MARCUS RemHemo [address] [place] [address] Lymphocytes/100 WBC (Bld) 30.2 % Normal 20.0-55.0 [facility] Comment on above: Order Comment: Order Added by Discern Expert. Performed By: #### 1 [id number] #### MARCUS RemHemo [address] [place] [address] Gentry Absolute 0.6 E3/mcL Normal 0.0-0.7 [facility] Comment on above: Order Comment: Order Added by Discern Expert. Performed By: #### 1 [id number] #### MARCUS RemHemo [address] [place] [address] Monocytes/100 WBC (Bld) 9.0 % Normal 0.0-10.0 [facility] Comment on above: Order Comment: Order Added by Discern Expert. Performed By: #### 1 [id number] #### MARCUS RemHemo [address] [place] [address] Neutro Absolute 3.9 E3/mcL Normal 1.4-6.5 [facility] Comment on above: Order Comment: Order Added by Discern Expert. Performed By: #### 1 [id number] #### MARCUS RemHemo [address] [place] [address] Neutro Auto 58.8 % Normal 37.0-75.0 [facility] Comment on above: Order Comment: Order Added by Discern Expert. Performed By: #### 1 [id number] #### MARCUS RemHemo [address] [place] [address] BMPon 09-22-2018 Anion gap [Moles/Vol] 12 mmol/L Normal 10-20 [facility] Comment on above: Performed By: #### 1 [id number] #### MARCUS RemHemo [address] [place] [address] Calcium [Mass/Vol] 9.4 mg/dL Normal 8.6-10.3 [facility] Comment on above: Performed By: #### 1 [id number] #### MARCUS RemHemo [address] [place] [address] Chloride [Moles/Vol] 110 mmol/L High 98-107 [facility] Comment on above: Performed By: #### 1 [id number] #### MARCUS RemHemo [address] [place] [address] CO2 [Moles/Vol] 22.0 mmol/L Normal 21.0-32.0 [facility] Comment on above: Performed By: #### 1 [id number] #### MARCUS RemHemo [address] [place] [address] Creatinine [Mass/Vol] 1.4 mg/dL High 0.5-1.1 [facility] Comment on above: Performed By: #### 1 [id number] #### MARCUS RemHemo [address] [place] [address] Glucose [Mass/Vol] 93 mg/dL Normal 70-99 [facility] Comment on above: Performed By: #### 1 [id number] #### MARCUS RemHemo [address] [place] [address] Potassium [Moles/Vol] 4.7 mmol/L Normal 3.5-5.3 [facility] Comment on above: Performed By: #### 1 [id number] #### MARCUS RemHemo [address] [place] [address] Sodium [Moles/Vol] 139 mmol/L Normal 136-145 [facility] Comment on above: Performed By: #### 1 [id number] #### MARCUS RemHemo [address] [place] [address] Urea nitrogen [Mass/Vol] 15 mg/dL Normal 6-23 [facility] Comment on above: Performed By: #### 1 [id number] #### MARCUS RemHemo [address] [place] [address] Urea nitrogen/Creatinine [Mass ratio] 10.7 ratio Normal 5.4-30.0 [facility] Comment on above: Performed By: #### 1 [id number] #### MARCUS RemHemo [address] [place] [address] CBC w/ Auto Diffon 8 Erythrocyte distribution width (RBC) [Ratio] 13.6 % Normal 11.5-14.5 [facility] Comment on above: Performed By: #### 2 [id number] #### MARCUS WilcoxHemo [facility] [place] [address] Hematocrit (Bld) [Volume fraction] 50.0 % High 36.0-48.0 [facility] Comment on above: Performed By: #### 2 [id number] #### MARCUS WilcoxHemo [facility] [place] [address] Hemoglobin (Bld) [Mass/Vol] 16.9 g/dL High 12.0-16.0 [facility] Comment on above: Performed By: #### 2 [id number] #### MARCUS WilcoxHemo [facility] [place] [id number] MCH (RBC) [Entitic mass] 31.0 pg Normal 27.0-31.0 [facility] Comment on above: Performed By: #### 2 [id number] #### MARCUS WilcoxHemo [address] [place] [address] MCHC (RBC) [Mass/Vol] 33.8 g/dL Normal 33.0-37.0 [facility] Comment on above: Performed By: #### 2 [id number] #### MARCUS WilcoxHemo [address] [place] [address] MCV (RBC) [Entitic vol] 91.7 fL Normal 78.0-100.0 [facility] Comment on above: Performed By: #### 2 [id number] #### MARCUS WilcoxHemo [facility]5 [place] [address] Platelet mean volume (Bld) [Entitic vol] 8.1 fL Normal 7.4-11.0 [facility] Comment on above: Performed By: #### 2 [id number] #### MARCUS WilcoxHemo [address] [place] [address] Platelets (Bld) [#/Vol] 123 E3/mcL Low 130-400 [facility] Comment on above: Performed By: #### 2 [id number] #### MARCUS WilcoxHemo [address] [place] [address] RBC (Bld) [#/Vol] 5.45 E6/mcL High 3.90-5.40 [facility] Comment on above: Performed By: #### 2 [id number] #### MARCUS WilcoxHemo [address] [place] [address] WBC (Bld) [#/Vol] 6.6 E3/mcL Normal 3.6-11.0 [facility] Comment on above: Performed By: #### 2 [id number] #### MARCUS WilcoxHemo [address] [place] [address] CT Abdomen/Pelvis w/o Contra ston 09-22-2018 CT Abdomen/Pelvis w/o Contrast Exam Date/Time: 09/22/2018 18:11 EST Reason for Exam: Abdominal Pain;Other (please specify) Report STUDY: CT Abdomen/Pelvis w/o Contrast; 09/22/2018 6:11 pm INDICATION: Other (please specify). COMPARISON: CT dated 05/19/2018 ACCESSION NUMBER(S): [id number] ORDERING CLINICIAN: Shilpa Douglas TECHNIQUE: CT of [...] by: Devin Zimmer MD Technologist: Eliane VILLALOBOS [facility] Hep Func Panelon 09-22-2018 Albumin [Mass/Vol] 4.7 g/dL Normal 3.4-5.0 [facility] Comment on above: Performed By: #### 1 [id number] #### MARCUS WilcoxHemo [address] [place] [address] Albumin/Globulin [Mass ratio] 1.7 {ratio} Normal 1.1-1.9 [facility] Comment on above: Performed By: #### 1 [id number] #### MARCUS WilcoxHemo [facility] [place] [address] Alk Phos 67 Int._Unit/L Normal 33-110 [facility] Comment on above: Performed By: #### 1 [id number] #### MARCUS WilcoxHemo [address] [place] [address] ALT [Catalytic activity/Vol] 19 Int._Unit/L Normal 7-45 [facility] Comment on above: Performed By: #### 1 [id number] #### MARCUS WilcoxHemo [address] [place] [address] AST [Catalytic activity/Vol] 31 Int._Unit/L Normal 9-39 [facility] Comment on above: Performed By: #### 1 [id number] #### MARCUSShawn WilcoxHemo [address] [place] [address] Bili Direct 0.12 mg/dL Normal 0.00-0.30 [facility] Comment on above: Performed By: #### 1 [id number] #### MARCUSShawn WilcoxHemo [facility]5 [place] [address] Bili Indirect 0.53 mg/dL Normal [facility] Comment on above: Result Comment: No e stablished ranges available for the indirect bilirubin Performed By: #### 1 [id number] #### [facility]5 [place] [address] Bili Total 0.65 mg/dL Normal 0.00-1.20 [facility] Comment on above: Performed By: #### 1 [id number] #### MARCUSShawn WilcoxHemo [facility]5 [place] [address] Globulin (S) [Mass/Vol] 3.0 g/dL Normal 2.0-4.0 [facility] Comment on above: Performed By: #### 1 [id number] #### MARCUSShawn WilcoxHemo [facility] [place] [address] Protein [Mass/Vol] 7.4 g/dL Normal 6.4-8.2 [facility] Comment on above: Performed By: #### 1 [id number] #### MARCUSShawn WilcoxHemo [address] [place] [address] Lipase Levelon 09-22-2018 Lipase Lvl 44 Int._Unit/L Normal [facility] Comment on above: Performed By: #### 1 [id number] #### MARCUSShawn WilcoxHemo [address] [place] [address] U BhCG Qlton 09-22-2018 HCG.beta subunit Qn Negative Normal Neg [facility] Comment on above: Performed By: #### 1 [id number] #### MARCUSShawn WilcoxHemo [address] [place] [address] UA Completeon 09-22-2018 Color (U) Yellow Normal Yellow [facility] Comment on above: Performed By: #### 1 [id number] #### MARCUSShawn WilcoxHemo [facility]5 [place] [address] Glucose (U) [Mass/Vol] Negative Normal Negative [facility] Comment on above: Performed By: #### 1 [id number] #### MARCUSShawn WilcoxHemo [address] [place] [address] Ketones Ql (U) Negative Normal Negative [facility] Comment on above: Performed By: #### 1 [id number] #### MARCUSShawn WilcoxHemo [facility]5 [place] [address] RBC (U) [#/Vol] 20-50 Abnormal 0-3 [facility] Comment on above: Performed By: #### 1 [id number] #### MARCUSShawn WilcoxHemo [address] [place] [address] UA Blood Negative Normal Negative [facility] Comment on above: Performed By: #### 1 [id number] #### MARCUS RemHemo [address] [place] [address] UA Bacteria 2+ /HPF Abnormal None [facility] Comment on above: Performed By: #### 1 [id number] #### MARCUS RemHemo [address] [place] [address] UA Clarity Cloudy Abnormal Clear [facility] Comment on above: Performed By: #### 1 [id number] #### MARCUS RemHemo [address] [place] [address] UA Leuk Est 3+ Abnormal Negative [facility] Comment on above: Performed By: #### 1 [id number] #### AMRCUS RemHemo [address] [place] [address] UA Mucous Trace Abnormal Trace [facility] Comment on above: Performed By: #### 1 [id number] #### MARCUS RemHemo [address] [place] [address] UA Nitrite Negative Normal Negative [facility] Comment on above: Performed By: #### 1 [id number] #### MARCUS RemHemo [address] [place] [address] UA pH 7.0 Normal 4.6-8.0 [facility] Comment on above: Performed By: #### 1 [id number] #### MARCUS RemHemo [address] [place] [address] UA Protein Negative Normal Negative [facility] Comment on above: Performed By: #### 1 [id number] #### MARCUS RemHemo [address] [place] [address] UA Spec Grav 1.014 Normal 1.003-1.030 [facility] Comment on above: Performed By: #### 1 [id number] #### MARCUS RemHemo [address] [place] [address] UA Squam Epithelial >30 Abnormal 0-5 [facility] Comment on above: Performed By: #### 1 [id number] #### MARCUS RemHemo [address] [place] [address] UA Urobilinogen Negative Normal [facility] Comment on above: Result Comment: Due to a manufacturing issue, low positive urobilinogen results may be fasely positive. Correlate with urine bilirubin and additional clinical/laboratory findings to assess the risk of hemolytic anemia or liver disease. If clinically indicated, repeat testing with an alternate method is available by contacting the laboratory within 24 hours. Performed By: #### 1 [id number] #### MARCUS RemHemo [address] [place] [id number] UA WBC 20-50 Abnormal 0-5 [facility] Comment on above: Performed By: #### 1 [id number] #### MARCUS RemHemo [address] [place] [address] Urobilinogen Qn (U) Negative Normal Negative [facility] Comment on above: Performed By: #### 1 [id number] #### MARCUS RemHemo [facility] [place] [address] eGFRon 09-22-2018 GFR/1.73 sq M predicted among non-blacks MDRD (S/P/Bld) [Vol rate/Area] 51 mL/min/1.73 m2 Normal [facility] Comment on above: Order Comment: Order Added by Discern Expert. Performed By: #### 1 [id number] #### MARCUS RemHemo [address] [place] [address] GFR/1.73 sq M predicted among non-blacks MDRD (S/P/Bld) [Vol rate/Area] 42 mL/min/1.73 m2 Normal [facility] Comment on above: Order Comment: Order Added by Discern Expert. Performed By: #### 1 [id number] #### MARCUS RemHemo [address] [place], [place] [id number] C Urineon 08-16-2018 C Urine Final Report: Few Mi xed skin contaminants Normal [facility] Comment on above: Performed By: #### 2 [id number] #### MARCUS Microbiology Subsection [address] [place], [place] [id number] UA Completeon 08-15-2018 Color (U) Yellow Normal Yellow [facility] Comment on above: Order Comment: Strai ght Cath as needed Performed By: #### 8 [id number] #### MARCUS Urinalysis Automated Subsection [address] [place], [place] [id number] Glucose (U) [Mass/Vol] 1+ Abnormal Negative [facility] Comment on above: Order Comment: Strai ght Cath as needed Performed By: #### 8 [id number] #### MARCUS Urinalysis Automated Subsection [facility] [place] [address] Ketones Ql (U) Negative Normal Negative [facility] Comment on above: Order Comment: Strai ght Cath as needed Performed By: #### 8 [id number] #### MARCUS Urinalysis Automated Subsection [facility] [place] [address] RBC (U) [#/Vol] 0-3 Normal 0-3 [facility] Comment on above: Order Comment: Strai ght Cath as needed Performed By: #### 8 [id number] #### MARCUS Urinalysis Automated Subsection [facility] [place] [address] UA Blood Negative Normal Negative [facility] Comment on above: Order Comment: Strai ght Cath as needed Performed By: #### 8 [id number] #### MARCUS Urinalysis Automated Subsection [facility] [place] [address] UA Bacteria Trace Abnormal None [facility] Comment on above: Order Comment: Strai ght Cath as needed Performed By: #### 8 [id number] #### MARCUS Urinalysis Automated Subsection [facility] [place] [address] UA Clarity SltCloudy Abnormal Clear [facility] Comment on above: Order Comment: Strai ght Cath as needed Performed By: #### 8 [id number] #### MARCUS Urinalysis Automated Subsection [facility] [place] [address] UA Hyal Cast 0-2 Normal 0-2 [facility] Comment on above: Order Comment: Strai ght Cath as needed Performed By: #### 8 [id number] #### MARCUS Urinalysis Automated Subsection [address] [place] [address] UA Leuk Est 1+ Abnormal Negative [facility] Comment on above: Order Comment: Strai ght Cath as needed Performed By: #### 8 [id number] #### MARCUS Urinalysis Automated Subsection [facility] [place] [address] UA Mucous Trace Abnormal Trace [facility] Comment on above: Order Comment: Strai ght Cath as needed Performed By: #### 8 [id number] #### MARCUS Urinalysis Automated Subsection [facility]5 [place] [address] UA Nitrite Negative Normal Negative [facility] Comment on above: Order Comment: Strai ght Cath as needed Performed By: #### 8 [id number] #### MARCUS Urinalysis Automated Subsection [address] [place] [address] UA pH 7.0 Normal 4.6-8.0 [facility] Comment on above: Order Comment: Strai ght Cath as needed Performed By: #### 8 [id number] #### MARCUS Urinalysis Automated Subsection [facility] [place] [address] UA Protein Negative Normal Negative [facility] Comment on above: Order Comment: Strai ght Cath as needed Performed By: #### 8 [id number] #### MARCUS Urinalysis Automated Subsection [facility] [place] [address] UA Spec Grav 1.012 Normal 1.003-1.030 [facility] Comment on above: Order Comment: Strai ght Cath as needed Performed By: #### 8 [id number] #### MARCUS Urinalysis Automated Subsection [facility]5 [place] [address] UA Squam Epithelial 5-10 Abnormal 0-5 [facility] Comment on above: Order Comment: Strai ght Cath as needed Performed By: #### 8 [id number] #### MARCUS Urinalysis Automated Subsection [facility] [place] [address] UA Urobilinogen Negative Normal [facility] Comment on above: Order Comment: Strai ght Cath as needed Performed By: #### 8 [id number] #### MARCUS Urinalysis Automated Subsection [facility]5 [place] [address] UA WBC 10-20 Abnormal 0-5 [facility] Comment on above: Order Comment: Strai ght Cath as needed Performed By: #### 8 [id number] #### MARCUS Urinalysis Automated Subsection [facility] [place] [address] Urobilinogen Qn (U) Negative Normal Negative [facility] Comment on above: Order Comment: Strai ght Cath as needed Performed By: #### 8 [id number] #### MARCUS Urinalysis Automated Subsection [address] [place] [address] Auto Diffon 08-14-2018 Basophils (Bld) [#/Vol] 0.0 E3/mcL Normal 0.0-0.2 [facility] Comment on above: Order Comment: Order Added by Discern Expert. Performed By: #### 2 [id number] #### MARCUS RemHemo [address] [place] [address] Basophils/100 WBC (Bld) 0.7 % Normal 0.0-2.0 [facility] Comment on above: Order Comment: Order Added by Discern Expert. Performed By: #### 2 [id number] #### MARCUS RemHemo [address] [place] [address] Eos Absolute 0.1 E3/mcL Normal 0.0-0.7 [facility] Comment on above: Order Comment: Order Added by Discern Expert. Performed By: #### 2 [id number] #### MARCUS RemHemo [address] [place] [address] Eosinophils/100 WBC (Bld) 2.2 % Normal 0.0-11.0 [facility] Comment on above: Order Comment: Order Added by Discern Expert. Performed By: #### 2 [id number] #### MARCUS RemHemo [address] [place] [address] Lymphocytes (Bld) [#/Vol] 1.4 E3/mcL Normal 1.2-3.4 [facility] Comment on above: Order Comment: Order Added by Discern Expert. Performed By: #### 2 [id number] #### MARCSU RemHemo [address] [place] [address] Lymphocytes/100 WBC (Bld) 32.5 % Normal 20.0-55.0 [facility] Comment on above: Order Comment: Order Added by Discern Expert. Performed By: #### 2 [id number] #### MARCUS RemHemo [address] [place] [address] Gentry Absolute 0.4 E3/mcL Normal 0.0-0.7 [facility] Comment on above: Order Comment: Order Added by Discern Expert. Performed By: #### 2 142774 #### MARCUS RemHemo [address] [place] [address] Monocytes/100 WBC (Bld) 9.7 % Normal 0.0-10.0 [facility] Comment on above: Order Comment: Order Added by Discern Expert. Performed By: #### 2 976220 #### MARCUS RemHemo [address] [place] [address] Neutro Absolute 2.3 E3/mcL Normal 1.4-6.5 [facility] Comment on above: Order Comment: Order Added by Discern Expert. Performed By: #### 2 [id number] #### MARCUS RemHemo [address] [place] [address] Neutro Auto 54.9 % Normal 37.0-75.0 [facility] Comment on above: Order Comment: Order Added by Discern Expert. Performed By: #### 2 [id number] #### MARCUS RemHemo [address] [place] [address] BMPon 08-14-2018 Anion gap [Moles/Vol] 13 mmol/L Normal 10-20 [facility] Comment on above: Performed By: #### 2 [id number] #### MARCUS RemChem [address] [place] [address] Calcium [Mass/Vol] 8.3 mg/dL Low 8.6-10.3 [facility] Comment on above: Performed By: #### 2 855986 #### MARCUS RemChem [address] [place] [address] Chloride [Moles/Vol] 110 mmol/L High 98-107 [facility] Comment on above: Performed By: #### 2 765220 #### MARCUS [facility] [address] [place] [address] CO2 [Moles/Vol] 21.0 mmol/L Normal 21.0-32.0 [facility] Comment on above: Performed By: #### 2 839729 #### MARCUS [facility] [address] [place] [address] Creatinine [Mass/Vol] 1.3 mg/dL Normal 0.6-1.3 [facility] Comment on above: Performed By: #### 2 [id number] #### MARCUS [facility] [address] [place] [address] Glucose [Mass/Vol] 122 mg/dL High 70-99 [facility] Comment on above: Performed By: #### 2 762759 #### MARCUS [facility] [address] [place] [address] Potassium [Moles/Vol] 3.3 mmol/L Low 3.5-5.3 [facility] Comment on above: Performed By: #### 2 [id number] #### MARCUS [employer] [address] [place] [address] Sodium [Moles/Vol] 141 mmol/L Normal 136-145 [facility] Comment on above: Performed By: #### 2 [id number] #### MARCUS RemChem [facility] [place] [address] Urea nitrogen [Mass/Vol] 13 mg/dL Normal 6-23 [facility] Comment on above: Performed By: #### 2 [id number] #### MARCUS [employer] [address] [place] [address] Urea nitrogen/Creatinine [Mass ratio] 10.0 ratio Normal 5.4-30.0 [facility] Comment on above: Performed By: #### 2 [id number] #### MARCUS [facility] [address] [place] [address] CBC w/ Auto Diffon 8 Erythrocyte distribution width (RBC) [Ratio] 13.2 % Normal 11.5-14.5 [facility] Comment on above: Performed By: #### 2 756200 #### MARCUS RemHemo [address] [place] [address] Hematocrit (Bld) [Volume fraction] 42.1 % Normal 36.0-48.0 [facility] Comment on above: Performed By: #### 2 605860 #### MARCUS RemHemo [address] [place] [address] Hemoglobin (Bld) [Mass/Vol] 14.1 g/dL Normal 12.0-16.0 [facility] Comment on above: Performed By: #### 2 043920 #### MARCUS RemHemo [address] [place] [address] MCH (RBC) [Entitic mass] 30.8 pg Normal 27.0-31.0 [facility] Comment on above: Performed By: #### 2 349018 #### MARCUS WilcoxHemo [address] [place] [address] MCHC (RBC) [Mass/Vol] 33.5 g/dL Normal 33.0-37.0 [facility] Comment on above: Performed By: #### 2 794062 #### MARCUS WilcoxHemo [facility] [place] [address] MCV (RBC) [Entitic vol] 91.7 fL Normal 78.0-100.0 [facility] Comment on above: Performed By: #### 2 [id number] #### MARCUSShawn WilcoxHemo [facility]5 [place] [address] Platelet mean volume (Bld) [Entitic vol] 8.8 fL Normal 7.4-11.0 [facility] Comment on above: Performed By: #### 2 [id number] #### MARCUS WilcoxHemo [address] [place] [address] Platelets (Bld) [#/Vol] 78 E3/mcL Low 130-400 [facility] Comment on above: Performed By: #### 2 178872 #### MARCUSShawn WilcoxHemo [address] [place] [address] RBC (Bld) [#/Vol] 4.60 E6/mcL Normal 3.90-5.40 [facility] Comment on above: Performed By: #### 2 487498 #### MARCUS WilcoxHemo [facility] [place] [address] WBC (Bld) [#/Vol] 4.2 E3/mcL Normal 3.6-11.0 [facility] Comment on above: Performed By: #### 2 098463 #### MARCUS RemHemo [address] [place] [address] Morphon 08-14-2018 Anisocytosis Ql (Bld) 1+ Normal [facility] Comment on above: Order Comment: Order Added by Discern Expert. Performed By: #### 1 [id number] #### MARCUS WilcoxHemo [address] [place] [address] RBC morphology finding Nom (Bld) SEE MORPHOLOGY Normal [facility] Comment on above: Order Comment: Order Added by Discern Expert. Performed By: #### 1 [id number] #### MARCUS WilcoxHemo [address] [place] [id number] TSHon 08-14-2018 TSH Qn 2.16 mcIU/mL Normal 0.30-5.60 [facility] Comment on above: Order Comment: With T4fr Reflex Performed By: #### 2 [id number] #### MARCUS RemChem [facility] [place] [address] eGFRon 08-14-2018 GFR/1.73 sq M predicted among non-blacks MDRD (S/P/Bld) [Vol rate/Area] 53 mL/min/1.73 m2 Normal [facility] Comment on above: Order Comment: Order added by Discern Expert. Performed By: #### 1 [id number] #### MARCUS WilcoxChem [address] [place] [address] GFR/1.73 sq M predicted among non-blacks MDRD (S/P/Bld) [Vol rate/Area] 44 mL/min/1.73 m2 Normal [facility] Comment on above: Order Comment: Order added by Discern Expert. Performed By: #### 1 [id number] #### MARCUS RemChem [facility] [place] [id number] zzplt morphon 08-14-2018 Platelet morphology finding Nom (Bld) NORMAL Normal [facility] Comment on above: Performed By: #### 9 [id number] #### MARCUS WilcoxHemo [facility] [place] [id number] Platelets (Bld) [#/Vol] DECREASED Normal [facility] Comment on above: Performed By: #### 9 [id number] #### MARCUS WilcoxHemo [address] [place] [id number] Culture, Urineon 06-16-2018 Culture, Urine Test Name: Culture, Urine Culture Status: Final Culture Report: No significant growth. Micro Source: Urine - clean catch Normal [facility] Comment on above: Performed By: #### G LUX #### Unless otherwise noted, all testing performed by [facility]. 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 POC Urinalysis Dipstickon Bilirubin Ql (U) Negative Invalid Interpretation Code Negative [facility] Glucose Ql (U) Negative Invalid Interpretation Code Normal, Negative mg/dL [facility] Hemoglobin Test strip Ql (U) Large Abnormal Negative [facility] Interpretation and review of laboratory results Abnormal Invalid Interpretation Code [facility] Ketones Ql (U) Negative Invalid Interpretation Code Negative mg/dL [facility] Leukocyte esterase Test strip Ql (U) Small Abnormal Negative [facility] Nitrite Test strip Ql (U) Negative Invalid Interpretation Code Negative [facility] pH Test strip (U) 7.5 [pH] Abnormal [facility] lth Protein Test strip Ql (U) Trace Abnormal Negative mg/dL [facility] Specific gravity Relative Density (U) 1.020 Invalid Interpretation Code [facility] Urobilinogen Test strip Qn (U) 0.2 mg/dL Invalid Interpretation Code <2.0, 0.2, Normal, Negative, 1.0, 2.0, <1.0 [facility] CURon 05-15-2018 CUR . MICRO - MicrobiologyPROCEDURE: Urine Culture [*1] Urine, Straight BODY SITE: CatherizedCOLLECTED DATE/TIME: 05/13/2018 22:15 EDT RECEIVED DATE/TIME: 05/14/2018 17:17 EDTSTART DATE/TIME: 05/14/2018 17:17 EDT FREE TEXT SOURCE:PRELIMINARY REPORTSPreliminary Report []Verified Date/Time/Personnel: 05/15/2018 14:09 EDTCulture results pending.Performing Locations*1: This test was performed at: [facility], [address] [place] [address], [id number] , [facility] ([place]) Comment on above: Performed By: #### C BC, ADIFF, ANEU ####[place] [address] [place], [place] [address]#### LIP, CMP, GFR ####[address] [address] .GFRon 05-14-2018 GFR Non- 45 ml/min/1.73sqm Normal [facility] ([place]) Comment on above: Result Comment: GFR Population [...] #### C DESTINY SANDOVAL, ANEU ####[address] [place], [place] [address]#### LIP, CMP, GFR ####[place] [address] GFR 55 ml/min/1.73sqm Normal [facility] ([place]) Comment on above: Result Comment: GFR Population [...] Performed By: #### C BCDESTINY, ANEU ####[address] [place], [place] [address]#### LIP, CMP, GFR ####[place] [address] CMPon 05-14-2018 Alanine aminotransferase (ALT) 41 U/L High 10-35 [facility] ([place]) Comment on above: Performed By: #### C BC, ADIFF, ANEU ####[address] [place], [place] [address]#### LIP, CMP, GFR ####[address] [address] Albumin 3.4 G/dL Low 3.5-5.0 [facility] ([place]) Comment on above: Performed By: #### C BC, ADIFF, ANEU ####[address] [place], [place] [address]#### LIP, CMP, GFR ####[address] [address] Albumin/Globulin Ratio 1.2 {ratio} Normal 1.1-2.5 [facility] ([place]) Comment on above: Performed By: #### C BC, ADIFF, ANEU ####[facility] [place] [address]#### LIP, CMP, GFR ####[address] [address] Alk Phos 56 U/L Normal 40-135 [facility] ([place]) Comment on above: Performed By: #### C BC, ADIFF, ANEU ####[address] [place] [address]#### LIP, CMP, GFR ####[address] [address] Aspartate aminotransferase (AST) 42 U/L High 10-40 [facility] ([place]) Comment on above: Performed By: #### C BC, ADIFF, ANEU ####[address] [place], [place] [address]#### LIP, CMP, GFR ####[address] [address] Bili Total 0.5 mg/dL Normal 0.2-1.0 [facility] ([place]) Comment on above: Performed By: #### C BC, ADIFF, ANEU ####[address] [place] [id number]#### LIP, CMP, GFR ####[facility] [place] [address] BUN/Creatinine Ratio 14 ratio Normal 7-27 [facility] [facility] ([place]) Comment on above: Performed By: #### C BC, ADIFF, ANEU ####[address] [place], [place] [address]#### LIP, CMP, GFR ####[facility] [place] [address] Calcium 8.0 mg/dL Low 8.4-10.2 [facility] ([place]) Comment on above: Performed By: #### C BC, ADIFF, ANEU ####[address] Qfpufpzn[address] [place], [place] [address]#### LIP, CMP, GFR ####[address] [address] Chloride 104 mmol/L Normal 98-107 [facility] ([place]) Comment on above: Performed By: #### C BC, ADIFF, ANEU ####[address] Vwkt[address] [place], [place] [address]#### LIP, CMP, GFR ####[address] [address] CO2 23 mmol/L Normal 22-29 [facility] ([place]) Comment on above: Performed By: #### C BC, ADIFF, ANEU ####[address] Zndjxthc[address] [place], [place] [address]#### LIP, CMP, GFR ####[address] [address] Creatinine 1.28 mg/dL High 0.55-1.02 [facility] ([place]) Comment on above: Performed By: #### C BC, ADIFF, ANEU ####[address] [place], [place] [address]#### LIP, CMP, GFR ####[facility] [place] [address] Electrolyte Balance 9.0 mEq/L Normal [facility] ([place]) Comment on above: Performed By: #### C BC, ADIFF, ANEU ####[address] M[address] [place], [place] [address]#### LIP, CMP, GFR ####[facility] [place] [address] Globulin 2.9 G/dL Normal [facility] ([place]) Comment on above: Performed By: #### C BC, ADIFF, ANEU ####[address] [place], [place] [address]#### LIP, CMP, GFR ####[facility] [place] [address] Glucose mass conc 90 mg/dL Normal 70-105 [facility] ([place]) Comment on above: Performed By: #### C BC, ADIFF, ANEU ####[address] [place], [place] [address]#### LIP, CMP, GFR ####[address] [address] Potassium molar conc 4.6 mmol/L Normal 3.5-5.1 [facility] ([place]) Comment on above: Performed By: #### C BC, ADIFF, ANEU ####[place] [address] [place], [place] [address]#### LIP, CMP, GFR ####[address] [address] Protein 6.3 G/dL Low 6.4-8.2 [facility] ([place]) Comment on above: Performed By: #### C BC, ADIFF, ANEU ####[address]sp[address] [place], [place] [address]#### LIP, CMP, GFR ####[facility] [place] [address] Sodium 136 mmol/L Normal 136-145 [facility] ([place]) Comment on above: Performed By: #### C BC, ADIFF, ANEU ####[address] [place], [place] [address]#### LIP, CMP, GFR ####[facility] [place] [address] Urea nitrogen 18 mg/dL Normal 7-18 [facility] ([place]) Comment on above: Performed By: #### C BC, ZACKIFF, ANEU ####[facility] [place], [place] [address]#### LIP, CMP, GFR ####[place] [address] [place] [place] [address] LIPon 05-14-2018 Lipase Level 250 U/L Normal 73-393 [facility] ([place]) Comment on above: Performed By: #### C BCZACKIFF, ANEU ####[facility] [place], [place] [address]#### LIP, CMP, GFR ####[facility] [place] [address] Emergency Room Note on 05-14-2018 [facility] [facility] Note Normal [facility] ([place]) Pat Eduon 05-14-2018 Pat Edu Normal [facility] ([place]) Patient Summary Documentson 05-14-2018 Patient Summary Documents Normal [facility] ([place]) XR ABDOMEN COMPLETE W/DECUB/ ERECTon 05-14-2018 XR [...] PM Sign Date: 05/13/2018 10:14:29 PM Normal [facility] ([place]) .Auto Diffon 05-13-2018 Basophils Auto #/vol (Bld) 0.00 10 3/mcL Normal 0.00-0.19 [facility] ([place]) Comment on above: Performed By: #### C LORI, DESTINY, ANEU ####[address] [place] [address]#### LIP, CMP, GFR ####[facility] [place] [address] Basophils/100 WBC Auto (Bld) 0.5 % Normal 0.0-2.5 [facility] ([place]) Comment on above: Performed By: #### C BC, ADIFF, ANEU ####[address] [place] [address]#### LIP, CMP, GFR ####[facility] [place] [address] Eosinophils 0.10 10 3/mcL Normal 0.00-0.40 [facility] ([place]) Comment on above: Performed By: #### C BC, ADIFF, ANEU ####[place] [address] [address]#### LIP, CMP, GFR ####[address] [address] Eosinophils/100 leukocytes 0.8 % Normal 0.0-7.0 [facility] ([place]) Comment on above: Performed By: #### C BC, ADIFF, ANEU ####[place] [address]#### LIP, CMP, GFR ####[facility] [place] [address] Lymphocytes 1.60 10 3/mcL Normal 0.77-3.85 [facility] ([place]) Comment on above: Performed By: #### C BC, ADIFF, ANEU ####[address] [place] [address]#### LIP, CMP, GFR ####[facility] [place] [address] Lymphocytes/100 leukocytes 18.0 % Normal 10.0-50.0 [facility] ([place]) Comment on above: Performed By: #### C BC, ADIFF, ANEU ####[address] [place] [address]#### LIP, CMP, GFR ####[place] [address] [place] [address] Monocytes 0.60 10 3/mcL Normal 0.15-1.00 [facility] ([place]) Comment on above: Performed By: #### Bonnie BC, ADIFF, ANEU ####[address] [place] [address]#### LIP, CMP, GFR ####[address] [address] Monocytes/100 leukocytes 6.8 % Normal 1.7-13.0 [facility] ([place]) Comment on above: Performed By: #### C BC, ADIFF, ANEU ####[place] [address]#### LIP, CMP, GFR ####[place] [address] Neutrophils/100 WBC Auto (Bld) 73.9 % Normal 37.0-80.0 [facility] ([place]) Comment on above: Performed By: #### Bonnie BC, ADIFF, ANEU ####[place] [address]#### LIP, CMP, GFR ####[place] [address] .NEUABSon 05-13-2018 Neutrophil, Absolute 6.70 10 3/mcL High 2.85-6.16 [facility] ([place]) Comment on above: Performed By: #### Bonnie SANDOVAL, ADIFF, ANEU ####[place] [address]#### LIP, CMP, GFR ####[address] [address] .Urinalysis Microscopic (AO) on 05-13-2018 UA Bacteria 1+ /hpf Invalid Interpretation Code [facility] ([place]) Comment on above: Performed By: #### U A, PREGU, UAMICAO ####[address] [place] [address] UA Squam Epithelial LOADED Invalid Interpretation Code None Seen [facility] ([place]) Comment on above: Performed By: #### U A, PREGU, UAMICAO ####[address] [place] [place], [place] [address] UA WBC LOADED Invalid Interpretation Code None Seen [facility] ([place]) Comment on above: Performed By: #### U A, PREGU, UAMICAO ####[address] [place] [place], [place] [address] Urine, erythrocytes None Seen Normal None Seen [facility] ([place]) Comment on above: Performed By: #### U A, PREGU, UAMICAO ####[facility] [address] [place], [place] [address] CBCon 05-13-2018 Erythrocyte distribution width Auto Ratio (RBC) 13.9 % Normal 11.5-14.5 [facility] ([place]) Comment on above: Performed By: #### C DESTINY SANDOVAL, ANEU ####[facility] [address] [place] [address]#### LIP, CMP, GFR ####[place] [address] Erythrocytes (RBC) 5.57 10 6/mcL High 4.20-5.40 [facility] ([place]) Comment on above: Performed By: #### DESTINY REYNOLDS, ANEU ####[place] [place] [address]#### LIP, CMP, GFR ####[place] [address] Hematocrit (HCT) 49.2 % High 37.0-47.0 [facility] ([place]) Comment on above: Performed By: #### Bonnie BC ADIFF, ANEU ####[place] [address] [address]#### LIP, CMP, GFR ####[place] [address] Hemoglobin mass conc (Bld) 17.1 G/dL High 12.0-16.0 [facility] ([place]) Comment on above: Performed By: #### DESTINY REYNOLDS, ANEU ####[address] [place] [address]#### LIP, CMP, GFR ####[facility] [place] [address] MCH 30.6 pg Normal 27.0-31.2 [facility] ([place]) Comment on above: Performed By: #### C BC, ADIFF, ANEU ####[facility] [place] [address]#### LIP, CMP, GFR ####[place] [address] MCHC mass conc (RBC) 34.7 G/dL Normal 33.0-37.0 [facility] ([place]) Comment on above: Performed By: #### C LORI, ADIFF, ANEU ####[place] [address]#### LIP, CMP, GFR ####[place] [address] MCV 88.3 fL Normal 80.0-94.0 [facility] ([place]) Comment on above: Performed By: #### C BC, ADIFF, ANEU ####[place] [address]#### LIP, CMP, GFR ####[place] [address] Platelet mean volume (PMV) 8.0 fL Normal 7.4-10.4 [facility] ([place]) Comment on above: Performed By: #### C LORI, ADIFF, ANEU ####[facility] [place] [address]#### LIP, CMP, GFR ####[address] [address] Platelets 113 10 3/mcL Low 130-400 [facility] ([place]) Comment on above: Performed By: #### C BC, ADIFF, ANEU ####[place] [address] [place] [address]#### LIP, CMP, GFR ####[address] [address] WBC (Leukocytes) 9.10 10 3/mcL Normal 4.60-10.80 [facility] ([place]) Comment on above: Performed By: #### C BC, ADIFF, ANEU ####[address] [place] [address]#### LIP, CMP, GFR ####[place] [address] PREGUon 05-13-2018 HCG ( test) Ql (U) Negative Normal [facility] ([place]) Comment on above: Performed By: #### U A, PREGU, UAMICAO ####[address] [place] [place] [address] test (u) int HCG not detected. Invalid Interpretation Code [facility] ([place]) Comment on above: Performed By: #### U A, PREGU, UAMICAO ####[address] [place] [place] [address] UAon 05-13-2018 UA Appear Slightly Cloudy Invalid Interpretation Code Clear [facility] ([place]) Comment on above: Performed By: #### U A, PREGU, UAMICAO ####[address] [place] [place], [place] [address] UA Blood Negative Normal Negative [facility] ([place]) Comment on above: Performed By: #### U A, PREGU, UAMICAO ####[address] [place] [place] [address] UA Leuk Est Small Invalid Interpretation Code Negative [facility] ([place]) Comment on above: Performed By: #### U A, PREGU, UAMICAO ####[address] [place] [place] [address] UA Nitrite Negative Normal Negative [facility] ([place]) Comment on above: Performed By: #### U A, PREGU, UAMICAO ####[address] [place] [place] [address] UA pH 7.5 Normal [facility] ([place]) Comment on above: Performed By: #### U A, PREGU, UAMICAO ####[address] [place] [place] [address] UA Protein Negative Normal Negative [facility] ([place]) Comment on above: Performed By: #### U A, PREGU, UAMICAO ####[address] [place], [place] [address] UA Spec Grav 1.005 Invalid Interpretation Code [facility] ([place]) Comment on above: Performed By: #### U A, PREGU, UAMICAO ####[address] [place], [place] [address] UA Specimen Type Clean Catch Normal [facility] ([place]) Comment on above: Performed By: #### U A, PREGU, UAMICAO ####[address] [place], [place] [address] UA Urobilinogen 0.2 E.U./dL Normal [facility] ([place]) Comment on above: Performed By: #### U A, PREGU, UAMICAO ####[address] [place] [place], [place] [address] Urine, color Yellow Normal [facility] ([place]) Comment on above: Performed By: #### U A, PREGU, UAMICAO ####[address] [place] [place], [place] [address] Urine, glucose Negative Normal Negative [facility] ([place]) Comment on above: Performed By: #### U A, PREGU, UAMICAO ####[address] [place] [place], [place] [address] Urine, ketones presence Negative Normal Negative [facility] ([place]) Comment on above: Performed By: #### U A, PREGU, UAMICAO ####[address] [place] [place], [place] [address] Urine, urobilinogen Negative Normal Negative [facility] ([place]) Comment on above: Performed By: #### U A, PREGU, UAMICAO ####[address] [place] [place], [place] [address] CBC with Diffon 03-15-2018 Basophils #/vol (Bld) 0.1 K/mcL Normal 0-0.2 [facility] Comment on above: Performed By: #### C BCDIF, EDCTNI, CMET, LIPASE #### Unless otherwise noted, all testing performed by [place] [address] CLIA: [id number] [employer] Operator: Ismael Torre M.D. Basophils/100 WBC (Bld) 1.1 % Normal [facility] Comment on above: Performed By: #### C BCDIF, EDCTNI, CMET, LIPASE #### Unless otherwise noted, all testing performed by [place] [address] CLIA: [id number] [employer]: Ismael Torre M.D. Eosinophils #/vol (Bld) 0.2 K/mcL Normal 0-0.5 [facility] Comment on above: Performed By: #### C BCDIF, EDCTNI, CMET, LIPASE #### Unless otherwise noted, all testing performed by [place] [phone] CLIA: [id number] [employer]: Ismael Torre M.D. Eosinophils/100 WBC (Bld) 3.2 % Normal [facility] Comment on above: Performed By: #### C BCDIF, EDCTNI, CMET, LIPASE #### Unless otherwise noted, all testing performed by [place] [phone] CLIA: [id number] [employer]: Ismael Torre M.D. Erythrocyte distribution width Ratio (RBC) 13.4 % Normal 10.0-14.4 [facility] Comment on above: Performed By: #### C BCDIF, EDCTNI, CMET, LIPASE #### Unless otherwise noted, all testing performed by [place] [address] CLIA: [id number] [employer]: Ismael Torre M.D. Hematocrit Volume Fraction (Bld) 47.8 % High 34.4-44.8 [facility] Comment on above: Performed By: #### C BCDIF, EDCTNI, CMET, LIPASE #### Unless otherwise noted, all testing performed by [place] [address] CLIA: [id number] [employer]: Ismael Torre M.D. Hemoglobin mass conc (Bld) 15.7 g/dL High 11.6-15.4 [facility] Comment on above: Performed By: #### C BCDIF, EDCTNI, CMET, LIPASE #### Unless otherwise noted, all testing performed by [place] [address] CLIA: [id number] [employer]: Ismael Torre M.D. Lymphocytes #/vol (Bld) 1.4 K/mcL Normal 1.0-3.7 [facility] Comment on above: Performed By: #### C BCDIF, EDCTNI, CMET, LIPASE #### Unless otherwise noted, all testing performed by [place] [phone] CLIA: [id number] [employer]: Ismael Torre M.D. Lymphocytes/100 WBC (Bld) 24.7 % Normal [facility] Comment on above: Performed By: #### C BCDIF, EDCTNI, CMET, LIPASE #### Unless otherwise noted, all testing performed by [place] [address] CLIA: [id number] [employer]: Ismael Torre M.D. MCH Entitic mass (RBC) 29.6 pg Normal 27.9-33.9 [facility] Comment on above: Performed By: #### C BCDIF, EDCTNI, CMET, LIPASE #### Unless otherwise noted, all testing performed by [place] [address] CLIA: [id number] [employer]: Ismael Torre M.D. MCHC mass conc (RBC) 32.8 g/dL Low 33.1-35.1 [facility] Comment on above: Performed By: #### C BCDIF, EDCTNI, CMET, LIPASE #### Unless otherwise noted, all testing performed by [place] [address] CLIA: [id number] [employer]: Ismael Torre M.D. MCV Entitic volume (RBC) 90.5 fL Normal 82.6-98.9 [facility] Comment on above: Performed By: #### C BCDIF, EDCTNI, CMET, LIPASE #### Unless otherwise noted, all testing performed by [place] [address] CLIA: [id number] [employer]: Ismael Torer M.D. Metamyelocytes/100 WBC (Bld) 2.2 % High 0 [facility] Comment on above: Performed By: #### C BCDIF, EDCTNI, CMET, LIPASE #### Unless otherwise noted, all testing performed by [place] [address] CLIA: [id number] [employer]: Ismael Torre M.D. Monocytes #/vol (Bld) 0.2 K/mcL Normal 0.1-0.6 [facility] Comment on above: Performed By: #### C BCDIF, EDCTNI, CMET, LIPASE #### Unless otherwise noted, all testing performed by [place] [address] CLIA: [id number] [employer]: Ismael Torre M.D. Monocytes/100 WBC (Bld) 3.2 % Normal [facility] Comment on above: Performed By: #### C BCDIF, EDCTNI, CMET, LIPASE #### Unless otherwise noted, all testing performed by [place] [address] CLIA: [id number] [employer]: Ismael Torre M.D. Neutrophils #/vol (Bld) 3.9 K/mcL Normal 1.2-6.9 [facility] Comment on above: Performed By: #### C BCDIF, EDCTNI, CMET, LIPASE #### Unless otherwise noted, all testing performed by [place] [address] CLIA: [id number] [employer]: Ismael Torre M.D. Nucleated RBC #/vol (Bld) 1 /100 WBC High 0 [facility] Comment on above: Performed By: #### C BCDIF, EDCTNI, CMET, LIPASE #### Unless otherwise noted, all testing performed by [place] [address] CLIA: [id number] [employer]: Ismael Torre M.D. Platelet mean volume Entitic volume (Bld) 8.8 fL Normal 7.0-10.6 [facility] Comment on above: Performed By: #### C BCDIF, EDCTNI, CMET, LIPASE #### Unless otherwise noted, all testing performed by [address] [place] [address] CLIA: [id number] [employer]: Ismael Torre M.D. Platelets #/vol (Bld) 133 K/mcL Low 162-402 [facility] Comment on above: Performed By: #### C BCDIF, EDCTNI, CMET, LIPASE #### Unless otherwise noted, all testing performed by [place] [address] CLIA: [id number] [employer]: Ismael Torre M.D. RBC #/vol (Bld) 5.29 M/mcL High 3.7-5.0 [facility] Comment on above: Performed By: #### C BCDIF, EDCTNI, CMET, LIPASE #### Unless otherwise noted, all testing performed by [place] [address] CLIA: [id number] [employer]: Ismael Torre M.D. Segmented Neut % 65.6 % Normal [facility] Comment on above: Result Comment: Smea r reviewed to verify automated differential> Performed By: #### C BCDIF, EDCTNI, CMET, LIPASE #### Unless otherwise noted, all testing performed by [place] [address] CLIA: [id number] [employer]: Ismael Torre M.D. WBC #/vol (Bld) 5.8 K/mcL Normal 3.4-10.6 [facility] Comment on above: Performed By: #### C BCDIF, EDCTNI, CMET, LIPASE #### Unless otherwise noted, all testing performed by [place] [address] CLIA: [id number] [employer]: Ismael Torre M.D. Comprehensive Metabolic Pane rock 03-15-2018 Albumin mass conc 3.8 g/dL Normal 3.2-5.2 [facility] Comment on above: Performed By: #### G LUX #### Unless otherwise noted, all testing performed by [place] [address] CLIA: [id number] [employer]: Ismael Torre M.D. ALP enzyme act/vol 66 U/L Normal 40-150 [facility] Comment on above: Performed By: #### G LUX #### Unless otherwise noted, all testing performed by [place] [address] CLIA: [id number] [employer]: Ismael Torre M.D. ALT enzyme act/vol 56 U/L Normal 14-65 [facility] Comment on above: Result Comment: This test result might be falsely depressed or falsely elevated on samples drawn from patients taking Sulfasalazine and Sulfapyridine. Venipuncture should occur prior to taking either of these drugs. Performed By: #### G LUX #### Unless otherwise noted, all testing performed by [place] [address] CLIA: [id number] [employer]: Ismael Torre M.D. AST enzyme act/vol 51 U/L High 0-45 [facility] Comment on above: Result Comment: This test result might be falsely depressed or falsely elevated on samples drawn from patients taking Sulfasalazine and Sulfapyridine. Venipuncture should occur prior to taking either of these drugs. Performed By: #### G LUX #### Unless otherwise noted, all testing performed by [place] [address] CLIA: [id number] [employer] Operator: Ismael Torre M.D. Bilirubin mass conc 0.5 mg/dL Normal 0.3-1.2 [facility] Comment on above: Performed By: #### G LUX #### Unless otherwise noted, all testing performed by [place] [address] CLIA: [id number] [employer] Operator: Ismael Torre M.D. Calcium mass conc 9.7 mg/dL Normal 8.4-10.2 [facility] Comment on above: Performed By: #### G LUX #### Unless otherwise noted, all testing performed by [place] [phone] CLIA: [id number] [employer] Operator: Ismael Torre M.D. Chloride molar conc 105 mmol/L Normal 98-108 [facility] Comment on above: Performed By: #### G LUX #### Unless otherwise noted, all testing performed by [place] [phone] CLIA: [id number] [employer] Operator: Ismael Torre M.D. CO2 molar conc 26 mmol/L Normal 21-32 [facility] Comment on above: Performed By: #### G LUX #### Unless otherwise noted, all testing performed by [place] [address] CLIA: [id number] [employer]: Ismael Torre M.D. Creatinine mass conc 1.67 mg/dL High 0.40-1.10 [facility] Comment on above: Performed By: #### G LUX #### Unless otherwise noted, all testing performed by [place] [address] CLIA: [id number] [employer]: Ismael Torre M.D. GFR/1.73 sq M predicted among blacks MDRD vol rate/area (S/P/Bld) 40 mL/min/{1.73_m2} Low >60 [facility] Comment on above: Result Comment: Afri can Indian GFR Calc Performed By: #### G LUX #### Unless otherwise noted, all testing performed by [place] [address] CLIA: [id number] [employer] Operator: Ismael Torre M.D. GFR/1.73 sq M predicted among non-blacks MDRD vol rate/area (S/P/Bld) 33 mL/min/{1.73_m2} Low >60 [facility] Comment on above: Result Comment: Non- [...] Unless otherwise noted, all testing performed by [place] [address] CLIA: [id number] [employer]: Ismael Torre M.D. Glucose mass conc 88 mg/dL Normal 70-99 [facility] Comment on above: Result Comment: This test result might be falsely depressed or falsely elevated on samples drawn from patients taking Sulfasalazine and Sulfapyridine. Venipuncture should occur prior to taking either of these drugs. Performed By: #### G LUX #### Unless otherwise noted, all testing performed by [place] [address] CLIA: [id number] [employer]: Ismael Torre M.D. Potassium molar conc 4.4 mmol/L Normal 3.5-5.1 [facility] Comment on above: Performed By: #### G LUX #### Unless otherwise noted, all testing performed by [place] [address] CLIA: [id number] [employer] Operator: Ismael Torre M.D. Protein mass conc 7.3 g/dL Normal 6.0-8.0 [facility] Comment on above: Performed By: #### G LUX #### Unless otherwise noted, all testing performed by [place] [address] CLIA: [id number] [employer]: Ismael Torre M.D. Sodium molar conc 137 mmol/L Normal 135-145 [facility] Comment on above: Performed By: #### G LUX #### Unless otherwise noted, all testing performed by [place] [address] CLIA: [id number] [employer]: Ismael Torre M.D. Urea nitrogen mass conc 30 mg/dL High 8-25 [facility] Comment on above: Performed By: #### G LUX #### Unless otherwise noted, all testing performed by [place] [address] CLIA: [id number] [employer] Operator: Ismael Torre M.D. ED Cardiac Troponin-Ion 05-2 Troponin I.cardiac mass conc ng/mL Normal < 45 [facility] Comment on above: Result Comment: Elev ation [...] Unless otherwise noted, all testing performed by [place] [id number] CLIA: [id number] [employer]: Ismael Torre M.D. Lipaseon 03-15-2018 Lipase enzyme act/vol 288 U/L Normal 73-393 Mo[facility] Comment on above: Performed By: #### G LUX #### Unless otherwise noted, all testing performed by [place] [id number] CLIA: [id number] [employer]: Ismael Torre M.D. Test,Urine Qualon 03-15-2018 HCG.beta subunit ( test) Ql (U) Negative Normal Negative [facility] Comment on above: Result Comment: Rapi d [...] Unless otherwise noted, all testing performed by [place] [id number] CLIA: [id number] [employer]: Ismael Torre M.D. Urinalysis, Routineon 2017 Bacteria LM.HPF #/area (Urine sed) Few Abnormal NS;RARE [facility] Comment on above: Performed By: #### G LUX #### Unless otherwise noted, all testing performed by [place] [address] CLIA: [id number] [employer] Operator: Ismael Torre M.D. Bilirubin,Urine Negative Normal NEG;NEGATIVE [facility] Comment on above: Performed By: #### G LUX #### Unless otherwise noted, all testing performed by [place] [phone] CLIA: [id number] [employer] Operator: Ismael Torre M.D. Blood,Urine Small Abnormal NEG;NEGATIVE [facility] Comment on above: Performed By: #### G LUX #### Unless otherwise noted, all testing performed by [place] [phone] CLIA: [id number] [employer] Operator: Ismael Torre M.D. Character Nom (U) Cloudy Normal [facility] Comment on above: Performed By: #### G LUX #### Unless otherwise noted, all testing performed by [place] [phone] CLIA: [id number] [employer]: Ismael Torre M.D. Color Nom (U) Yellow Normal [facility] Comment on above: Performed By: #### G LUX #### Unless otherwise noted, all testing performed by [place] [phone] CLIA: [id number] [employer]: Ismael Torre M.D. Glucose Ql (U) Negative Normal NEG;NEGATIVE [facility] Comment on above: Performed By: #### G LUX #### Unless otherwise noted, all testing performed by [place] [phone] CLIA: [id number] [employer] Operator: Ismael Torre M.D. Ketone,Urine Negative Normal NEG;NEGATIVE [facility] Comment on above: Performed By: #### G LUX #### Unless otherwise noted, all testing performed by [place] [phone] CLIA: [id number] [employer]: Ismael Torre M.D. Leuk.Esterase,Urine Large Abnormal Negative [facility] Comment on above: Performed By: #### G LUX #### Unless otherwise noted, all testing performed by [place] [phone] CLIA: [id number] [employer] Operator: Ismael Torre M.D. Nitrite,Urine Negative Normal NEG;NEGATIVE [facility] Comment on above: Performed By: #### G LUX #### Unless otherwise noted, all testing performed by [place] [phone] CLIA: [id number] [employer] Operator: Ismael Torre M.D. pH (U) 5.0 [pH] Normal 4.5-8.0 [facility] Comment on above: Performed By: #### G LUX #### Unless otherwise noted, all testing performed by [place] [phone] CLIA: [id number] [employer] Operator: Ismael Torre M.D. Protein mass conc (U) Negative Normal NEG;NEGATIVE [facility] Comment on above: Performed By: #### G LUX #### Unless otherwise noted, all testing performed by [place] [phone] CLIA: [id number] [employer]: Ismael Torre M.D. RBC,Urine 8 /HPF High 0-5 [facility] Comment on above: Performed By: #### G LUX #### Unless otherwise noted, all testing performed by [place] [address] CLIA: [id number] [employer] Operator: Ismael Torre M.D. Specific [place],Urine 1.015 Normal 1.003-1.029 [facility] Comment on above: Performed By: #### G LUX #### Unless otherwise noted, all testing performed by [place] [address] CLIA: [id number] [employer] Operator: Ismael Torre M.D. Squamous Epithelial 11 /HPF Normal 0-40 [facility] Comment on above: Performed By: #### G LUX #### Unless otherwise noted, all testing performed by [place] [address] CLIA: [id number] [employer] Operator: Ismael Torre M.D. Urobilinogen,Urine < 2.0 Normal <2 [facility] Comment on above: Performed By: #### G LUX #### Unless otherwise noted, all testing performed by [place] [phone] CLIA: [id number] [employer] Operator: Ismael Torre M.D. WBC,Urine 46 /HPF High 0-5 [facility] Comment on above: Performed By: #### G LUX #### Unless otherwise noted, all testing performed by [place] [address] CLIA: [id number] [employer]: Ismael Torre M.D. US Abdomen Limited Studyon 0 01-18-2018 US Abdomen Limited Study Invalid Interpretation Code ONBASE Basic Metabolic Panelon 12-16 Calcium mass conc 8.9 mg/dL Normal 8.4-10.2 [facility] Comment on above: Performed By: #### C HEM8, VALP #### Unless otherwise noted, all testing performed by [place] [address] CLIA: [id number] [employer]: Ismael Torre M.D. Chloride molar conc 105 mmol/L Normal 98-108 [facility] Comment on above: Performed By: #### C HEM8, VALP #### Unless otherwise noted, all testing performed by [place] [address] CLIA: [id number] [employer]: Ismael Torre M.D. CO2 molar conc 22 mmol/L Normal 21-32 [facility] Comment on above: Performed By: #### C HEM8, VALP #### Unless otherwise noted, all testing performed by [place] [address] CLIA: [id number] [employer] Operator: Ismael Torre M.D. Creatinine mass conc 1.42 mg/dL High 0.40-1.10 [facility] Comment on above: Performed By: #### C HEM8, VALP #### Unless otherwise noted, all testing performed by [place] [address] CLIA: [id number] [employer]: Ismael Torre M.D. GFR/1.73 sq M predicted among blacks MDRD vol rate/area (S/P/Bld) 49 mL/min/{1.73_m2} Low >60 [facility] Comment on above: Result Comment: Afri can Indian GFR Calc Performed By: #### C HEM8, VALP #### Unless otherwise noted, all testing performed by [place] [address] CLIA: [id number] [employer] Operator: Ismael Torre M.D. GFR/1.73 sq M predicted among non-blacks MDRD vol rate/area (S/P/Bld) 40 mL/min/{1.73_m2} Low >60 [facility] Comment on above: Result Comment: Non- [...] Unless otherwise noted, all testing performed by [place] [address] CLIA: [id number] [employer] Operator: Ismael Torre M.D. Glucose mass conc 86 mg/dL Normal 70-99 [facility] Comment on above: Result Comment: This test result might be falsely depressed or falsely elevated on samples drawn from patients taking Sulfasalazine and Sulfapyridine. Venipuncture should occur prior to taking either of these drugs. Performed By: #### C HEM8, VALP #### Unless otherwise noted, all testing performed by [place] [address] CLIA: [id number] [employer] Operator: Ismael Torre M.D. Potassium molar conc 4.2 mmol/L Normal 3.5-5.1 [facility] Comment on above: Performed By: #### C HEM8, VALP #### Unless otherwise noted, all testing performed by [place] [address] CLIA: [id number] [employer]: Ismael Torre M.D. Sodium molar conc 137 mmol/L Normal 135-145 [facility] Comment on above: Performed By: #### C HEM8, VALP #### Unless otherwise noted, all testing performed by [place] [address] CLIA: [id number] [employer] Operator: Ismael Torre M.D. Urea nitrogen mass conc 28 mg/dL High 8-25 [facility] Comment on above: Performed By: #### C HEM8, VALP #### Unless otherwise noted, all testing performed by [place] [phone] CLIA: [id number] [employer]: Ismael Torre M.D. CBC with Diffon 01-02-2018 Basophils #/vol (Bld) 0.0 K/mcL Normal 0-0.2 [facility] Comment on above: Performed By: #### C BCDIF #### Unless otherwise noted, all testing performed by [place] [phone] CLIA: [id number] [employer]: Ismael Torre M.D. Basophils/100 WBC (Bld) 0.4 % Normal [facility] Comment on above: Performed By: #### C BCDIF #### Unless otherwise noted, all testing performed by [place] [address] CLIA: [id number] [employer]: Ismael Torre M.D. Eosinophils #/vol (Bld) 0.1 K/mcL Normal 0-0.5 [facility] Comment on above: Performed By: #### C BCDIF #### Unless otherwise noted, all testing performed by [address] [place] [address] CLIA: [id number] [employer] Operator: Ismael Torre M.D. Eosinophils/100 WBC (Bld) 1.6 % Normal [facility] Comment on above: Performed By: #### C BCDIF #### Unless otherwise noted, all testing performed by [place] [phone] CLIA: [id number] [employer]: Ismael Torre M.D. Erythrocyte distribution width Ratio (RBC) 13.6 % Normal 10.0-14.4 [facility] Comment on above: Performed By: #### C BCDIF #### Unless otherwise noted, all testing performed by [place] [phone] CLIA: [id number] [employer]: Ismael Torre M.D. Hematocrit Volume Fraction (Bld) 41.9 % Normal 34.4-44.8 [facility] Comment on above: Performed By: #### C BCDIF #### Unless otherwise noted, all testing performed by [place] [phone] CLIA: [id number] [employer]: Ismael Torre M.D. Hemoglobin mass conc (Bld) 14.0 g/dL Normal 11.6-15.4 [facility] Comment on above: Performed By: #### C BCDIF #### Unless otherwise noted, all testing performed by [place] [phone] CLIA: [id number] [employer] Operator: Ismael Torre M.D. Lymphocytes #/vol (Bld) 2.1 K/mcL Normal 1.0-3.7 [facility] Comment on above: Performed By: #### C BCDIF #### Unless otherwise noted, all testing performed by [place] [address] CLIA: [id number] [employer] Operator: Ismael Torre M.D. Lymphocytes/100 WBC (Bld) 29.9 % Normal [facility] Comment on above: Performed By: #### C BCDIF #### Unless otherwise noted, all testing performed by [place] [address] CLIA: [id number] [employer] Operator: Ismael Torre M.D. MCH Entitic mass (RBC) 29.7 pg Normal 27.9-33.9 [facility] Comment on above: Performed By: #### C BCDIF #### Unless otherwise noted, all testing performed by [place] [phone] CLIA: [id number] [employer] Operator: Ismael Torre M.D. MCHC mass conc (RBC) 33.4 g/dL Normal 33.1-35.1 [facility] Comment on above: Performed By: #### C BCDIF #### Unless otherwise noted, all testing performed by [place] [phone] CLIA: [id number] [employer] Operator: Ismael Torre M.D. MCV Entitic volume (RBC) 89.0 fL Normal 82.6-98.9 [facility] Comment on above: Performed By: #### C BCDIF #### Unless otherwise noted, all testing performed by [place] [address] CLIA: [id number] [employer] Operator: Ismael Torre M.D. Monocytes #/vol (Bld) 0.7 K/mcL High 0.1-0.6 [facility] Comment on above: Performed By: #### C BCDIF #### Unless otherwise noted, all testing performed by [place] [address] CLIA: [id number] [employer] Operator: Ismael Torre M.D. Monocytes/100 WBC (Bld) 9.7 % Normal [facility] Comment on above: Performed By: #### C BCDIF #### Unless otherwise noted, all testing performed by [place] [address] CLIA: [id number] [employer] Operator: Ismael Torre M.D. Neutrophils #/vol (Bld) 4.1 K/mcL Normal 1.2-6.9 [facility] Comment on above: Performed By: #### C BCDIF #### Unless otherwise noted, all testing performed by [place] [phone] CLIA: [id number] [employer] Operator: Ismael Torre M.D. Platelet mean volume Entitic volume (Bld) 8.6 fL Normal 7.0-10.6 [facility] Comment on above: Performed By: #### C BCDIF #### Unless otherwise noted, all testing performed by [place] [address] CLIA: [id number] [employer] Operator: Ismael Torre M.D. Platelets #/vol (Bld) 100 K/mcL Low 162-402 [facility] Comment on above: Performed By: #### C BCDIF #### Unless otherwise noted, all testing performed by [address] [place], [place] [address] CLIA: [id number] [employer] Operator: Ismael Torre M.D. RBC #/vol (Bld) 4.71 M/mcL Normal 3.7-5.0 [facility] Comment on above: Performed By: #### C BCDIF #### Unless otherwise noted, all testing performed by [place] [address] CLIA: [id number] [employer] Operator: Ismael Torre M.D. Segmented Neut % 58.4 % Normal [facility] Comment on above: Performed By: #### C BCDIF #### Unless otherwise noted, all testing performed by [place] [address] CLIA: [id number] [employer] Operator: Ismael Torre M.D. WBC #/vol (Bld) 7.0 K/mcL Normal 3.4-10.6 [facility] Comment on above: Performed By: #### C BCDIF #### Unless otherwise noted, all testing performed by [place] [address] CLIA: [id number] [employer] Operator: Ismael Torre M.D. CHEST (ONE VIEW ONLY)on 12-16 CHEST (ONE VIEW ONLY) Final Report Accession No: [id number] Performed: Jan 02 2018 1:47PM Examination: [...] ROMERO M.D. Trans: n/a : cc: Normal [facility] Glucose, POCon 01-02-2018 Glucose mass conc 103 mg/dL Normal 70-105 [facility] Comment on above: Performed By: #### G LUX #### Unless otherwise noted, all testing performed by [place] [address] CLIA: [id number] [employer] Operator: Ismael Torre M.D. Levetiracetamon 01-02-2018 Levetiracetam mass conc 45.1 ug/mL Normal 12.0 - 46.0 [facility] Comment on above: Result Comment: ---- ADDITIONAL INFORMATION This test was developed and its performance characteristics determined by [facility] in a manner consistent with CLIA requirements. This test has not been cleared or approved by the U.[place]. Food and Drug Administration. Test Performed by: [place] [id number] Performed By: #### L ATIYA BAILEY #### Unless otherwise noted, all testing performed by [place] [address] CLIA: [id number] [employer] Operator: Ismael Torre M.D. Topiramateon 01-02-2018 Topiramate 1.6 mcg/mL Normal [facility] Comment on above: Result Comment: ---- REFERENCE VALUE Reference values depend on clinical use: Anticonvulsant: 5.0-20.0 mcg/mL Psychiatric: 2.0-8.0 mcg/mL ADDITIONAL INFORMATION This test was developed and its performance characteristics determined by [facility] in a manner consistent with CLIA requirements. This test has not been cleared or approved by the U.S. Food and Drug Administration. Test Performed by: [facility] [address] [place] [address] Performed By: #### L ATIYA BAILEY #### Unless otherwise noted, all testing performed by [place] [address] CLIA: [id number] [employer] Operator: Ismael Torre M.D. Urinalysis, Routineon 2017 Bilirubin,Urine Negative Normal NEG;NEGATIVE [facility] Comment on above: Performed By: #### U A #### Unless otherwise noted, all testing performed by [place] [address] CLIA: [id number] [employer] Operator: Ismael Torre M.D. Blood,Urine Negative Normal NEG;NEGATIVE [facility] Comment on above: Performed By: #### U A #### Unless otherwise noted, all testing performed by [place] [address] CLIA: [id number] [employer] Operator: Ismael Torre M.D. Character Nom (U) Clear Normal [facility] Comment on above: Performed By: #### U A #### Unless otherwise noted, all testing performed by [place] [address] CLIA: [id number] [employer] Operator: Ismael Torre M.D. Color Nom (U) Straw Normal [facility] Comment on above: Performed By: #### U A #### Unless otherwise noted, all testing performed by [place] [phone] CLIA: [id number] [employer] Operator: Ismael Torre M.D. Glucose Ql (U) Negative Normal NEG;NEGATIVE [facility] Comment on above: Performed By: #### U A #### Unless otherwise noted, all testing performed by [place] [phone] CLIA: [id number] [employer] Operator: Ismael Torre M.D. Ketone,Urine Negative Normal NEG;NEGATIVE [facility] Comment on above: Performed By: #### U A #### Unless otherwise noted, all testing performed by [place] [phone] CLIA: [id number] [employer] Operator: Ismael Torre M.D. Leuk.Esterase,Urine Negative Normal Negative [facility] Comment on above: Performed By: #### U A #### Unless otherwise noted, all testing performed by [place] [phone] CLIA: [id number] [employer] Operator: Ismael Torre M.D. Nitrite,Urine Negative Normal NEG;NEGATIVE [facility] Comment on above: Performed By: #### U A #### Unless otherwise noted, all testing performed by [place] [phone] CLIA: [id number] [employer] Operator: Ismael Torre M.D. pH (U) 6.0 [pH] Normal 4.5-8.0 [facility] Comment on above: Performed By: #### U A #### Unless otherwise noted, all testing performed by [place] [address] CLIA: [id number] [employer] Operator: Ismael Torre M.D. Protein mass conc (U) Negative Normal NEG;NEGATIVE [facility] Comment on above: Performed By: #### U A #### Unless otherwise noted, all testing performed by [place] [address] CLIA: [id number] [employer] Operator: Ismael Torre M.D. RBC LM.HPF #/area (Urine sed) /[HPF] Normal 0-5 [facility] Comment on above: Performed By: #### U A #### Unless otherwise noted, all testing performed by [place] [address] CLIA: [id number] [employer] Operator: Ismael Torre M.D. Specific [place],Urine 1.006 Normal 1.003-1.029 [facility] Comment on above: Performed By: #### U A #### Unless otherwise noted, all testing performed by [place] [address] CLIA: [id number] [employer] Operator: Ismael Torre M.D. Squamous Epithelial 1 /HPF Normal 0-40 [facility] Comment on above: Performed By: #### U A #### Unless otherwise noted, all testing performed by [place] [address] CLIA: [id number] [employer] Operator: Ismael Torre M.D. Urobilinogen,Urine < 2.0 Normal <2 [facility] Comment on above: Performed By: #### U A #### Unless otherwise noted, all testing performed by [place] [address] CLIA: [id number] [employer] Operator: Ismael Torre M.D. WBC,Urine 1 /HPF Normal 0-5 [facility] Comment on above: Performed By: #### U A #### Unless otherwise noted, all testing performed by [place] [address] CLIA: [id number] [employer] Operator: Ismael Torre M.D. Valproic Acidon 01-02-2018 Protein mass conc 72 mcg/mL Normal 50-100 [facility] Comment on above: Result Comment: Resu lt should be correlated with last dose as reflected in the medical record. Performed By: #### C HEM8, VALP #### Unless otherwise noted, all testing performed by [place] [address] CLIA: [id number] [employer] Operator: Ismael Torre M.D. BRAIN WITH SPECTon 7 BRAIN WITH SPECT Performed at [facility] APPROVED BY: Surinder Carpenter MD EXAMINATION: NM [...] caudate nuclei, bilaterally. IMPRESSION: Normal study. Normal [facility] Vital Signs Date Time Vital Sign Value Performing Clinician Facility 04-05-2025 01:26-0400 Body temperature 98.3 [degF] Dr. Sree Jamison MD Work Phone: [facility] 04-05-2025 01:26-0400 Diastolic blood pressure 90 mm[Hg] Dr. Sree Jamison MD Work Phone: 5(128)539-645601 [place] [address] 04-05-2025 01:26-0400 Heart rate 77 /min Dr. Sree Jamison MD Work Phone: 7(076)685-627708 [place] [address] 04-05-2025 01:26-0400 Respiratory rate 18 /min Dr. Sree Jamison MD Work Phone: 9(147)205-619908 [place] [address] 04-05-2025 01:26-0400 SaO2% (BldA) [Mass fraction] 96 % Dr. Sree Jamison MD Work Phone: 0(056)867-706108 [place] [address] 04-05-2025 01:26-0400 Systolic blood pressure 165 mm[Hg] Dr. Sree Jamison MD Work Phone: 6(282)247-800508 [place] [address] 04-04-2025 15:43-0400 Body mass index (BMI) [Ratio] 33.1 kg/m2 Dr. Sree Jamison MD Work Phone: 3(475)138-117208 [place] [address] 04-04-2025 15:43-0400 Body weight 74.[address] Sree Jamison MD Work Phone: 7(091)489-986708 [place] [address] 04-04-2025 15:40-0400 Body height 149.[address] Sree Jamison MD Work Phone: 6(567)193-729708 [place] [address] 03-21-2025 18:00-0400 Diastolic blood pressure 70 mm[Hg] Dr. Sree Jamison MD Work Phone: 4(912)945-854768 [address] 03-21-2025 18:00-0400 Heart rate 90 /min Dr. Sree Jamison MD Work Phone: 1(884)728-990008 [place] [address] 03-21-2025 18:00-0400 Respiratory rate 12 /min Dr. Sree Jamison MD Work Phone: 9(123)078-327408 [place] [address] 03-21-2025 18:00-0400 SaO2% (BldA) [Mass fraction] 99 % Dr. Sree Jamison MD Work Phone: 6(085)220-377801 [place] [address] 03-21-2025 18:00-0400 Systolic blood pressure 180 mm[Hg] Dr. Sree Jamison MD Work Phone: [facility] 03-21-2025 16:27-0400 Body temperature 98.6 [degF] Dr. Sree Jamison MD Work Phone: [facility] 03-21-2025 09:37-0400 Body height 149.[address] Sree Jamison MD Work Phone: [facility] 03-21-2025 09:37-0400 Body mass index (BMI) [Ratio] 34.2 kg/m2 Dr. Sree Jamison MD Work Phone: [facility] 03-21-2025 09:37-0400 Body weight [address] Sree Jamison MD Work Phone: [facility] 03-15-2025 10:39-0400 Body temperature 97.81 [degF] Sohail Hernandez MD PhD Work Phone: [facility] 03-15-2025 10:39-0400 Diastolic blood pressure 81 mm[Hg] Sohail Hernandez MD PhD Work Phone: [facility] 03-15-2025 10:39-0400 Heart rate 85 /min Sohail Hernandez MD PhD Work Phone: [facility] 03-15-2025 10:39-0400 Respiratory rate 20 /min Sohail Hernandez MD PhD Work Phone: [facility] 03-15-2025 10:39-0400 SaO2% (BldA) [Mass fraction] 95 % Sohail Hernandez MD PhD Work Phone: [facility] 03-15-2025 10:39-0400 Systolic blood pressure 124 mm[Hg] Sohail Hernandez MD PhD Work Phone: [facility] 03-13-2025 17:25-0400 Body height 142.2 cm Sohail Hernandez MD PhD Work Phone: [facility] 01-25-2025 14:36-0400 Body height 139.7 cm Valentina Chopra MD Work Phone: [facility] 01-25-2025 14:36-0400 Diastolic blood pressure 78 mm[Hg] Valentina Chopra MD Work Phone: [facility] 01-25-2025 14:36-0400 Heart rate 76 /min Valentina Chopra MD Work Phone: [facility] 01-25-2025 14:36-0400 Systolic blood pressure 137 mm[Hg] Valentina Chopra MD Work Phone: [facility] 12-08-2024 14:10-0500 Body mass index (BMI) [Ratio] 36.49 kg/m2 Sohail Hernandez MD PhD Work Phone: [facility] 12-08-2024 14:10-0500 Body weight 71.22 kg Sohail Hernandez MD PhD Work Phone: [facility] 10-26-2024 11:38-0500 Diastolic blood pressure 84 mm[Hg] Sohail Hernandez MD PhD Work Phone: [facility] 10-26-2024 11:38-0500 Systolic blood pressure 140 mm[Hg] Sohail Hernandez MD PhD Work Phone: [facility] 07-18-2024 12:47-0400 Body height 139.7 cm Valentina Chopra MD Work Phone: [facility] 07-18-2024 12:47-0400 Body mass index (BMI) [Ratio] 36.49 kg/m2 Valentina Chopra MD Work Phone: [facility] 07-18-2024 12:47-0400 Body weight 71.22 kg Valentina Chopra MD Work Phone: [facility] 07-18-2024 12:47-0400 Diastolic blood pressure 104 mm[Hg] Valentina Chopra MD Work Phone: [facility] 07-18-2024 12:47-0400 Heart rate 69 /min Valentina Chopra MD Work Phone: [facility] 07-18-2024 12:47-0400 Systolic blood pressure 164 mm[Hg] Valentina Chopra MD Work Phone: [facility] 07-07-2024 11:51-0400 Body height 139.7 cm Sohail Hernandez MD PhD Work Phone: [facility] 07-07-2024 11:51-0400 Body mass index (BMI) [Ratio] 36.49 kg/m2 Sohail Hernandez MD PhD Work Phone: [facility] 07-07-2024 11:51-0400 Body weight 71.22 kg Sohail Hernandez MD PhD Work Phone: [facility] 07-07-2024 11:51-0400 Diastolic blood pressure 53 mm[Hg] Sohail Hernandez MD PhD Work Phone: [facility] 07-07-2024 11:51-0400 Heart rate 78 /min Sohail Heranndez MD PhD Work Phone: [facility] 07-07-2024 11:51-0400 Systolic blood pressure 92 mm[Hg] Sohail Hernandez MD PhD Work Phone: [facility] 06-16-2024 14:00-0400 Diastolic blood pressure 84 mm[Hg] Raúl Hudson MD Work Phone: [facility] 06-16-2024 14:00-0400 Heart rate 68 /min Raúl Hudson MD Work Phone: [facility] 06-16-2024 14:00-0400 Systolic blood pressure 142 mm[Hg] Raúl Hudson MD Work Phone: [facility] 06-06-2024 12:10-0400 Respiratory rate 16 /min Destinee Price MD Work Phone: [facility] 06-06-2024 07:41-0400 Body temperature 97.7 [degF] Destinee Price MD Work Phone: [facility] 06-06-2024 07:41-0400 Diastolic blood pressure 78 mm[Hg] Destinee Price MD Work Phone: [facility] 06-06-2024 07:41-0400 Heart rate 76 /min Destinee Price MD Work Phone: [facility] 06-06-2024 07:41-0400 SaO2% (BldA) [Mass fraction] 93 % Destinee Price MD Work Phone: [facility] 06-06-2024 07:41-0400 Systolic blood pressure 169 mm[Hg] Destinee Price MD Work Phone: [facility] 06-05-2024 15:09-0400 Body height 139.7 cm Destinee Price MD Work Phone: [facility] 06-05-2024 15:09-0400 Body mass index (BMI) [Ratio] 36.48 kg/m2 Destinee Price MD Work Phone: [facility] 06-05-2024 15:09-0400 Body weight 71.2 kg Destinee Price MD Work Phone: [facility] 04-27-2024 14:36-0400 Body height 139.7 cm [facility] 04-27-2024 14:36-0400 Body mass index (BMI) [Ratio] 36.49 kg/m2 [facility] 04-27-2024 14:36-0400 Body weight 71.22 kg [facility] 04-19-2024 13:57-0400 Body height 139.7 cm Shayy Mcginnis MD Work Phone: [facility] 04-19-2024 13:57-0400 Diastolic blood pressure 64 mm[Hg] Shayy Mcginnis MD Work Phone: [facility] 04-19-2024 13:57-0400 Systolic blood pressure 120 mm[Hg] Shayy Mcginnis MD Work Phone: [facility] 04-05-2024 10:56-0400 Diastolic blood pressure 68 mm[Hg] Khalida Mtz MD Work Phone: [facility] 04-05-2024 10:56-0400 Systolic blood pressure 118 mm[Hg] Khalida Mtz MD Work Phone: [facility] 04-04-2024 11:30-0400 Diastolic blood pressure 60 mm[Hg] Mejia Cullen MD Work Phone: [facility] 04-04-2024 11:30-0400 Heart rate 97 /min Mejia Cullen MD Work Phone: [facility] 04-04-2024 11:30-0400 Systolic blood pressure 130 mm[Hg] Mejia Cullen MD Work Phone: [facility] 02-04-2024 09:46-0400 Diastolic blood pressure 83 mm[Hg] Olinda Luna MD Work Phone: [facility] 02-04-2024 09:46-0400 Heart rate 69 /min Olinda Luna MD Work Phone: [facility] 02-04-2024 09:46-0400 Systolic blood pressure 123 mm[Hg] Olinda Luna MD Work Phone: [facility] 01-03-2024 13:31-0400 Body height 139.7 cm Mejia Cullen MD Work Phone: [facility] 01-03-2024 13:31-0400 Body mass index (BMI) [Ratio] 37.19 kg/m2 Mejia Cullen MD Work Phone: [facility] 01-03-2024 13:31-0400 Body weight 72.58 kg Mejia Cullen MD Work Phone: [facility] 01-03-2024 13:31-0400 Diastolic blood pressure 85 mm[Hg] Mejia Cullen MD Work Phone: [facility] 01-03-2024 13:31-0400 Heart rate 74 /min Mejia Cullen MD Work Phone: [facility] 01-03-2024 13:31-0400 Systolic blood pressure 140 mm[Hg] Mejia Cullen MD Work Phone: [facility] 01-01-2024 11:45-0400 Heart rate 79 /min Carolynn Allegra DO Work Phone: [facility] 01-01-2024 11:45-0400 Respiratory rate 25 /min Carolynn Allegra DO Work Phone: [facility] 01-01-2024 11:45-0400 SaO2% (BldA) [Mass fraction] 93 % Carolynn Allegra DO Work Phone: [facility] 01-01-2024 11:30-0400 Diastolic blood pressure 84 mm[Hg] Carolynn Allegra DO Work Phone: [facility] 01-01-2024 11:30-0400 Systolic blood pressure 142 mm[Hg] Carolynn Allegra DO Work Phone: [facility] 12-31-2023 20:26-0400 Body temperature 96.91 [degF] Carolynn Allegra DO Work Phone: [facility] 11-17-2023 20:28-0500 Diastolic blood pressure 84 mm[Hg] Larry Lemasters DO Work Phone: [facility] 11-17-2023 20:28-0500 Heart rate 74 /min Larry Lemasters DO Work Phone: [facility] 11-17-2023 20:28-0500 Respiratory rate 18 /min Larry Lemasters DO Work Phone: [facility] 11-17-2023 20:28-0500 SaO2% (BldA) [Mass fraction] 92 % Larry Lemasters DO Work Phone: [facility] 11-17-2023 20:28-0500 Systolic blood pressure 138 mm[Hg] Larry Lemasters DO Work Phone: [facility] 11-17-2023 16:08-0500 Body height 139.7 cm Larry Eugene DO Work Phone: [facility] 11-17-2023 16:08-0500 Body mass index (BMI) [Ratio] 38.35 kg/m2 Larry Eugene DO Work Phone: [facility] 11-17-2023 16:08-0500 Body temperature 97.59 [degF] Larry Eugene DO Work Phone: [facility] 11-17-2023 16:08-0500 Body weight 74.84 kg Larry Eugene DO Work Phone: [facility] 11-10-2023 10:11-0500 Body height 139.7 cm Valentina Munoz MD Work Phone: [facility] 11-10-2023 10:11-0500 Diastolic blood pressure 64 mm[Hg] Valentina Munoz MD Work Phone: [facility] 11-10-2023 10:11-0500 Systolic blood pressure 112 mm[Hg] Valentina Munoz MD Work Phone: [facility] 11-08-2023 10:34-0500 Diastolic blood pressure 83 mm[Hg] Jeanie Ayala MD Work Phone: [facility] 11-08-2023 10:34-0500 Heart rate 75 /min Jeanie Ayala MD Work Phone: [facility] 11-08-2023 10:34-0500 Systolic blood pressure 138 mm[Hg] Jeanie Ayala MD Work Phone: [facility] 10-29-2023 11:04-0500 Body height 139.7 cm Matthew Pérez MD [facility] 10-29-2023 11:04-0500 Body mass index (BMI) [Ratio] 38.28 kg/m2 Matthew Pérez MD [facility] 10-29-2023 11:04-0500 Body weight 74.71 kg Matthew Pérez MD [facility] 10-29-2023 11:04-0500 Diastolic blood pressure 80 mm[Hg] Matthew Pérez MD [facility] 10-29-2023 11:04-0500 Systolic blood pressure 130 mm[Hg] Matthew Pérez MD [facility] 10-25-2023 10:27-0500 Body height 139.7 cm Mejia Cullen MD Work Phone: [facility] 10-25-2023 10:27-0500 Body mass index (BMI) [Ratio] 37.19 kg/m2 Mejia Cullen MD Work Phone: [facility] 10-25-2023 10:27-0500 Body weight 72.58 kg Mejia Cullen MD Work Phone: [facility] 10-25-2023 10:27-0500 Diastolic blood pressure 82 mm[Hg] Mejia Cullen MD Work Phone: [facility] 10-25-2023 10:27-0500 Heart rate 72 /min Mejia Cullen MD Work Phone: [facility] 10-25-2023 10:27-0500 Systolic blood pressure 135 mm[Hg] Mejia Cullen MD Work Phone: [facility] 10-02-2023 06:59-0500 Diastolic blood pressure 90 mm[Hg] Lit Ledezma MD Work Phone: [facility] 10-02-2023 06:59-0500 Heart rate 75 /min Lit Ledezma MD Work Phone: [facility] 10-02-2023 06:59-0500 Respiratory rate 18 /min Lit Ledezma MD Work Phone: [facility] 10-02-2023 06:59-0500 SaO2% (BldA) [Mass fraction] 98 % Lit Ledezma MD Work Phone: [facility] 10-02-2023 06:59-0500 Systolic blood pressure 141 mm[Hg] Lit Ledezma MD Work Phone: [facility] 10-02-2023 01:11-0500 Body height 139.7 cm Lit eLdezma MD Work Phone: [facility] 10-02-2023 01:11-0500 Body mass index (BMI) [Ratio] 37.19 kg/m2 Lit Ledezma MD Work Phone: [facility] 10-02-2023 01:11-0500 Body temperature 98.29 [degF] Lit Ledezma MD Work Phone: [facility] 10-02-2023 01:11-0500 Body weight 72.58 kg Lit Ledezma MD Work Phone: [facility] 09-21-2023 13:33-0500 Body height 139.7 cm Everett Haywood MD Work Phone: [facility] 09-21-2023 13:33-0500 Body mass index (BMI) [Ratio] 37.19 kg/m2 Everett Haywood MD Work Phone: [facility] 09-21-2023 13:33-0500 Body weight 72.58 kg Everett Haywood MD Work Phone: [facility] Comment on above: Per pt 09-21-2023 13:33-0500 Diastolic blood pressure 86 mm[Hg] Everett Haywood MD Work Phone: [facility] 09-21-2023 13:33-0500 Heart rate 75 /min Everett Haywood MD Work Phone: [facility] 09-21-2023 13:33-0500 SaO2% (BldA) [Mass fraction] 95 % Everett Haywood MD Work Phone: [facility] 09-21-2023 13:33-0500 Systolic blood pressure 124 mm[Hg] Everett Haywood MD Work Phone: [facility] 09-16-2023 11:36-0500 Diastolic blood pressure 68 mm[Hg] Dimas Lin MD Work Phone: [facility] 09-16-2023 11:36-0500 Heart rate 62 /min Dimas Lin MD Work Phone: [facility] 09-16-2023 11:36-0500 Respiratory rate 18 /min Dimas Lin MD Work Phone: [facility] 09-16-2023 11:36-0500 SaO2% (BldA) [Mass fraction] 96 % Dimas Lin MD Work Phone: [facility] 09-16-2023 11:36-0500 Systolic blood pressure 130 mm[Hg] Dimas Lin MD Work Phone: [facility] 09-16-2023 09:10-0500 Body height 139.7 cm Dimas Lin MD Work Phone: [facility] 09-16-2023 09:10-0500 Body mass index (BMI) [Ratio] 37.19 kg/m2 Dimas Lin MD Work Phone: [facility] 09-16-2023 09:10-0500 Body temperature 97.3 [degF] Dimas Lin MD Work Phone: [facility] 09-16-2023 09:10-0500 Body weight 72.58 kg Dimas Lin MD Work Phone: [facility] 09-08-2023 11:26-0500 Body height 137.2 cm Jeanie Ayala MD Work Phone: [facility] 09-08-2023 11:26-0500 Body mass index (BMI) [Ratio] 38.58 kg/m2 Jeanie Ayala MD Work Phone: [facility] 09-08-2023 11:26-0500 Body weight 72.58 kg Jeanie Ayala MD Work Phone: [facility] 09-08-2023 11:26-0500 Diastolic blood pressure 80 mm[Hg] Jeanie Ayala MD Work Phone: [facility] 09-08-2023 11:26-0500 Heart rate 69 /min Jeanie Ayala MD Work Phone: [facility] 09-08-2023 11:26-0500 Systolic blood pressure 132 mm[Hg] Jeanie Ayala MD Work Phone: [facility] 08-25-2023 09:24-0500 Body height 137.2 cm Abhi Richards DO Work Phone: [facility] 08-25-2023 09:24-0500 Body mass index (BMI) [Ratio] 38.58 kg/m2 Abhi Richards DO Work Phone: [facility] 08-25-2023 09:24-0500 Body temperature 97.59 [degF] Abhi Richards DO Work Phone: [facility] 08-25-2023 09:24-0500 Body weight 72.58 kg Abhi Richards DO Work Phone: [facility] 08-25-2023 09:24-0500 Diastolic blood pressure 83 mm[Hg] Abhi Richards DO Work Phone: [facility] 08-25-2023 09:24-0500 Heart rate 76 /min Abhi Richards DO Work Phone: [facility] 08-25-2023 09:24-0500 Respiratory rate 16 /min Abhi Richards DO Work Phone: [facility] 08-25-2023 09:24-0500 SaO2% (BldA) [Mass fraction] 96 % Abhi Richards DO Work Phone: [facility] 08-25-2023 09:24-0500 Systolic blood pressure 161 mm[Hg] Abhi Richards DO Work Phone: [facility] 08-19-2023 10:48-0400 Body height 139.7 cm Valentina Chopra MD Work Phone: [facility] 08-19-2023 10:48-0400 Body mass index (BMI) [Ratio] 37.19 kg/m2 Valentina Chopra MD Work Phone: [facility] 08-19-2023 10:48-0400 Body weight 72.58 kg Valentina Chopra MD Work Phone: [facility] 08-19-2023 10:48-0400 Diastolic blood pressure 90 mm[Hg] Valentina Chopra MD Work Phone: [facility] 08-19-2023 10:48-0400 Heart rate 75 /min Valentina Chopra MD Work Phone: [facility] 08-19-2023 10:48-0400 Systolic blood pressure 142 mm[Hg] Valentina Chopra MD Work Phone: [facility] 08-16-2023 10:47-0400 Body mass index (BMI) [Ratio] 38.1 kg/m2 Matthew Pérez MD Work Phone: [facility] 08-16-2023 10:47-0400 Body weight 71.67 kg Matthew Pérez MD Work Phone: [facility] 08-16-2023 10:47-0400 Diastolic blood pressure 70 mm[Hg] Matthew Pérez MD Work Phone: [facility] 08-16-2023 10:47-0400 Systolic blood pressure 160 mm[Hg] Matthew Pérez MD Work Phone: [facility] 08-13-2023 10:56-0400 Diastolic blood pressure 60 mm[Hg] Lopez Gutierrez DO Work Phone: [facility] 10-27-2023 10:56-0400 Heart rate 75 /min Lopez Hernandezersen DO Work Phone: [facility] 08-13-2023 10:56-0400 Respiratory rate 16 /min Lopez Gutierrez DO Work Phone: [facility] 08-13-2023 10:56-0400 SaO2% (BldA) [Mass fraction] 98 % Lopez Hernandezersen DO Work Phone: [facility] 08-13-2023 10:56-0400 Systolic blood pressure 144 mm[Hg] Lopez Hernandezersen DO Work Phone: [facility] 08-13-2023 07:20-0400 Body height 137.2 cm Lopez Hernandezersen DO Work Phone: [facility] 08-13-2023 07:20-0400 Body mass index (BMI) [Ratio] 38.27 kg/m2 Lopez Gutierrez DO Work Phone: [facility] 08-13-2023 07:20-0400 Body temperature 97 [degF] Lopez Hernandezersen DO Work Phone: [facility] 08-13-2023 07:20-0400 Body weight 72 kg Lopez Gutierrez DO Work Phone: [facility] 08-11-2023 09:18-0400 Body height 139.7 cm Jeanie Ayala MD Work Phone: [facility] 08-11-2023 09:18-0400 Body mass index (BMI) [Ratio] 39.74 kg/m2 Jeanie Ayala MD Work Phone: [facility] 08-11-2023 09:18-0400 Body weight 77.56 kg Jeanie Ayala MD Work Phone: [facility] 08-11-2023 09:18-0400 Diastolic blood pressure 81 mm[Hg] Jeanie Ayala MD Work Phone: [facility] 08-11-2023 09:18-0400 Heart rate 72 /min Jeanie Ayala MD Work Phone: [facility] 08-11-2023 09:18-0400 Systolic blood pressure 117 mm[Hg] Jeanie Ayala MD Work Phone: [facility] 07-25-2023 14:00-0400 Diastolic blood pressure 92 mm[Hg] Caren Gilman DO Work Phone: [facility] 07-25-2023 14:00-0400 Respiratory rate 17 /min Caren Gilman DO Work Phone: [facility] 07-25-2023 14:00-0400 Systolic blood pressure 161 mm[Hg] Caren Gilman DO Work Phone: 7(324)[phone] [place] [address] 07-24-2023 23:30-0400 Heart rate 85 /min Caren Gilman DO Work Phone: 4(286)[phone] [place] [address] 07-24-2023 23:30-0400 SaO2% (BldA) [Mass fraction] 95 % Caren Gilman DO Work Phone: [facility] 07-24-2023 23:04-0400 Body height 139.7 cm Caren Gilman DO Work Phone: [facility] 07-24-2023 23:04-0400 Body mass index (BMI) [Ratio] 40.02 kg/m2 Caren Gilman DO Work Phone: [facility] 07-24-2023 23:04-0400 Body temperature 97.2 [degF] Caren Gilman DO Work Phone: [facility] 07-24-2023 23:04-0400 Body weight 78.11 kg Caren Gilman DO Work Phone: [facility] 07-16-2023 03:00-0400 Diastolic blood pressure 95 mm[Hg] Jeanie Ayala Other Phone: [facility] 07-16-2023 03:00-0400 Systolic blood pressure 160 mm[Hg] Jeanie Ayala Other Phone: [facility] 07-16-2023 02:30-0400 Heart rate 73 /min Jeanie Ayala Other Phone: [facility] 07-16-2023 02:30-0400 Respiratory rate 16 /min Jeanie Ayala Other Phone: [facility] 07-16-2023 02:30-0400 SaO2% (BldA) [Mass fraction] 95 % Jeanie Ayala Other Phone: [facility] 07-13-2023 09:18-0400 Body height 139.7 cm Jeanie Ayala MD Work Phone: [facility] 07-13-2023 09:18-0400 Body mass index (BMI) [Ratio] 41.84 kg/m2 Jeanie Ayala MD Work Phone: [facility] 07-13-2023 09:18-0400 Body weight 81.65 kg Jeanie Ayala MD Work Phone: [facility] 07-13-2023 09:18-0400 Diastolic blood pressure 88 mm[Hg] Jeanie Ayala MD Work Phone: [facility] 07-13-2023 09:18-0400 Heart rate 64 /min Jeanie Ayala MD Work Phone: [facility] 07-13-2023 09:18-0400 Systolic blood pressure 132 mm[Hg] Jeanie Ayala MD Work Phone: [facility] 06-14-2023 08:24-0400 Diastolic blood pressure 82 mm[Hg] Jeanie Ayala Other Phone: [facility] 06-14-2023 08:24-0400 Heart rate 70 /min Jeanie Ayala Other Phone: [facility] 06-14-2023 08:24-0400 Respiratory rate 16 /min Jeanie Ayala Other Phone: [facility] 06-14-2023 08:24-0400 SaO2% (BldA) [Mass fraction] 98 % Jeanie Ayala Other Phone: [facility] 06-14-2023 08:24-0400 Systolic blood pressure 158 mm[Hg] Jeanie Ayala Other Phone: [facility] 05-04-2023 09:46-0400 Body height 139.7 cm Jeanie Ayala MD Work Phone: [facility] 05-04-2023 09:46-0400 Body mass index (BMI) [Ratio] 41.84 kg/m2 Jeanie Ayala MD Work Phone: [facility] 05-04-2023 09:46-0400 Body weight 81.65 kg Jaenie Ayala MD Work Phone: [facility] 05-04-2023 09:46-0400 Diastolic blood pressure 76 mm[Hg] Jeanie Ayala MD Work Phone: [facility] 05-04-2023 09:46-0400 Heart rate 72 /min Jeanie Ayala MD Work Phone: [facility] 05-04-2023 09:46-0400 Systolic blood pressure 110 mm[Hg] Jeanie Ayala MD Work Phone: [facility] 04-30-2023 10:44-0400 Body height 139.7 cm Jeanie Ayala Work Phone: [address] Work Phone: 04-30-2023 10:44-0400 Diastolic blood pressure 72 mm[Hg] Jeanie Puma [place] Work Phone: [employer] [address] [place] Work Phone: 04-30-2023 10:44-0400 Systolic blood pressure 118 mm[Hg] Jeanie Puma Tavallaee Work Phone: [place] [address] [place] Work Phone: 04-05-2023 13:20-0400 Body height 139.7 cm Jeanie Puma [place]ee Work Phone: [place] [address] [place] Work Phone: 04-05-2023 13:20-0400 Body mass index (BMI) [Ratio] 40.67 kg/m2 Jeanie Puma Pimentelallaee Work Phone: [place] [address] [place] Work Phone: 04-05-2023 13:20-0400 Body surface area Derived from formula 1.66 m2 Jeanie Puma Tavallaee Work Phone: [place] [address] [place] Work Phone: 04-05-2023 13:20-0400 Body weight 79.38 kg Jeanie Puma Pimentelallaee Work Phone: [address] Work Phone: 04-05-2023 13:20-0400 Diastolic blood pressure 82 mm[Hg] Jeanie Puma Tav[place]ee Work Phone: [place] [address] [place] Work Phone: 04-05-2023 13:20-0400 Systolic blood pressure 120 mm[Hg] Jeanie Puma [place] Work Phone: [place] [address] [place] Work Phone: 04-01-2023 07:00-0400 Diastolic blood pressure 97 mm[Hg] Jeanie Tavallaee Other Phone: [facility] 04-01-2023 07:00-0400 Heart rate 101 /min Jeanie Tavallaee Other Phone: [facility] 04-01-2023 07:00-0400 Respiratory rate 16 /min Jeanie Tavallaee Other Phone: [facility] 04-01-2023 07:00-0400 SaO2% (BldA) [Mass fraction] 99 % Jeanie Tavallaee Other Phone: [facility] 04-01-2023 07:00-0400 Systolic blood pressure 148 mm[Hg] Jeanie Tavallaee Other Phone: [facility] 04-01-2023 02:35-0400 Body height 139.7 cm Jeanie Pimentelallaedarrell Other Phone: [facility] 04-01-2023 02:35-0400 Body temperature 97.34 [degF] Jeanie Tavallaee Other Phone: [facility] 04-01-2023 02:35-0400 Body weight 79.5 kg Jeanie Tavallaee Other Phone: [facility] 02-25-2023 13:57-0400 Body height 139.7 cm Jeanie Ayala MD Work Phone: [facility] 02-25-2023 13:57-0400 Body mass index (BMI) [Ratio] 41.84 kg/m2 Jeanie Ayala MD Work Phone: [facility] 02-25-2023 13:57-0400 Body weight 81.65 kg Jeanie Ayala MD Work Phone: [facility] 02-25-2023 13:57-0400 Diastolic blood pressure 102 mm[Hg] Jeanie Tavallaee MD Work Phone: [facility] 02-25-2023 13:57-0400 Heart rate 70 /min Jeanie Ayala MD Work Phone: [facility] 02-25-2023 13:57-0400 Systolic blood pressure 178 mm[Hg] Jeanie Ayala MD Work Phone: [facility] 02-24-2023 10:45-0400 Diastolic blood pressure 90 mm[Hg] Jeanie Ayala Work Phone: [facility] [employer] [address] DO Work Phone: 02-24-2023 10:45-0400 Heart rate 92 /min Jeanie Ayala Work Phone: [facility] [employer] [address] DO Work Phone: 02-24-2023 10:45-0400 SaO2% (BldA) [Mass fraction] 93 % Jeanie Ayala Work Phone: [facility] [employer] [address] DO Work Phone: 02-24-2023 10:45-0400 Systolic blood pressure 148 mm[Hg] Jeanie Ayala Work Phone: [facility] [employer] [address] DO Work Phone: 01-26-2023 11:29-0400 Body mass index (BMI) [Ratio] 40.77 kg/m2 Jeanie Ayala Work Phone: [facility] [employer] DO Work Phone: 01-26-2023 11:29-0400 Body surface area Derived from formula 1.66 m2 Jeanie Ayala Work Phone: [facility] [employer] DO Work Phone: 01-26-2023 11:29-0400 Body weight 79.56 kg Jeanie M Tavallaee Work Phone: [facility] [employer] [address] DO Work Phone: 01-26-2023 11:29-0400 Diastolic blood pressure 60 mm[Hg] Jeanie M Tavallaee Work Phone: [facility] [employer] DO Work Phone: 01-26-2023 11:29-0400 Heart rate 88 /min Jeanie M Tavallaee Work Phone: [facility] Mohinder 3 DO Work Phone: 01-26-2023 11:29-0400 SaO2% (BldA) [Mass fraction] 94 % Jeanie M Tavallaee Work Phone: [facility] Mohinder 3 DO Work Phone: 01-26-2023 11:29-0400 Systolic blood pressure 92 mm[Hg] Jeanie M Tavallaee Work Phone: [facility] Mohinder 3 DO Work Phone: 01-21-2023 20:02-0400 Diastolic blood pressure 91 mm[Hg] Jeanie Tavallaee Other Phone: [facility] 01-21-2023 20:02-0400 Heart rate 84 /min Jeanie Tavallaee Other Phone: [facility] 01-21-2023 20:02-0400 Respiratory rate 16 /min Jeanie Tavallaee Other Phone: [facility] 01-21-2023 20:02-0400 SaO2% (BldA) [Mass fraction] 94 % Jeanie Tavallaee Other Phone: [facility] 01-21-2023 20:02-0400 Systolic blood pressure 138 mm[Hg] Jeanie Tavallaee Other Phone: [facility] 01-21-2023 18:32-0400 Body temperature 97.16 [degF] Jeanie Tavallaee Other Phone: [facility] 01-21-2023 18:32-0400 Body weight 79 kg Jeanie Tavallaee Other Phone: [facility] 01-08-2023 00:00-0400 Diastolic blood pressure 96 mm[Hg] Jeanie Tavallaee Other Phone: [facility] 01-08-2023 00:00-0400 Heart rate 107 /min Jeanie Tavallaee Other Phone: [facility] 01-08-2023 00:00-0400 Respiratory rate 16 /min Jeanie Tavallaee Other Phone: [facility] 01-08-2023 00:00-0400 SaO2% (BldA) [Mass fraction] 95 % Jeanie Tavallaee Other Phone: [facility] 01-08-2023 00:00-0400 Systolic blood pressure 182 mm[Hg] Jeanie Tavallaee Other Phone: [facility] 01-07-2023 19:17-0400 Body height 154.9 cm Jeanie Tavallaee Other Phone: [facility] 01-07-2023 19:17-0400 Body temperature 99.68 [degF] Jeanie Tavallaee Other Phone: [facility] 01-07-2023 19:17-0400 Body weight 72.7 kg Jeanie Tavallaee Other Phone: [facility] 01-07-2023 08:26-0400 Body temperature 100.94 [degF] Jeanie Tavallaee Other Phone: [facility] 01-07-2023 08:26-0400 Diastolic blood pressure 75 mm[Hg] Jeanie Tavallaee Other Phone: [facility] 01-07-2023 08:26-0400 Heart rate 106 /min Jeanie Tavallaee Other Phone: [facility] 01-07-2023 08:26-0400 Respiratory rate 18 /min Jeanie Tavallaee Other Phone: [facility] 01-07-2023 08:26-0400 SaO2% (BldA) [Mass fraction] 96 % Jeanie Tavallaee Other Phone: [facility] 01-07-2023 08:26-0400 Systolic blood pressure 168 mm[Hg] Jeanie Tavallaee Other Phone: [facility] 01-01-2023 05:49-0400 Body height 149.8 cm Jeanie Tavallaee Other Phone: [facility] 01-01-2023 05:49-0400 Body temperature 97.16 [degF] Jeanie Tavallaee Other Phone: [facility] 01-01-2023 05:49-0400 Body weight 77.8 kg Jeanie Tavallaee Other Phone: [facility] 01-01-2023 05:49-0400 Diastolic blood pressure 78 mm[Hg] Jeanie Tavallaee Other Phone: [facility] 01-01-2023 05:49-0400 Heart rate 77 /min Jeanie Tavallaee Other Phone: [facility] 01-01-2023 05:49-0400 Respiratory rate 20 /min Jeanie Tavallaee Other Phone: [facility] 01-01-2023 05:49-0400 SaO2% (BldA) [Mass fraction] 98 % Jeanie Tavallaee Other Phone: [facility] 01-01-2023 05:49-0400 Systolic blood pressure 161 mm[Hg] Jeanie Tavallaee Other Phone: [facility] 12-23-2022 11:21-0500 Body height 139.7 cm Jeanie M Tavallaee Work Phone: [facility] 300 Work Phone: 12-23-2022 11:21-0500 Body mass index (BMI) [Ratio] Patient Reason Not Done Jeanie M Tavallaee Work Phone: [facility] 300 Work Phone: 12-23-2022 11:21-0500 Diastolic blood pressure 76 mm[Hg] Jeanie M Tavallaee Work Phone: [facility] 300 Work Phone: 12-23-2022 11:21-0500 Heart rate 76 /min Jeanie M Tavallaee Work Phone: [facility] 300 Work Phone: 12-23-2022 11:21-0500 SaO2% (BldA) [Mass fraction] 96 % Jeanie M Tavallaee Work Phone: [facility] 300 Work Phone: 12-23-2022 11:21-0500 Systolic blood pressure 118 mm[Hg] Jeanie M Tavallaee Work Phone: [facility] 300 Work Phone: 12-23-2022 09:38-0500 Body height 139.7 cm Jeanie M Tavlucianoaee Work Phone: [facility] 300 Work Phone: 12-23-2022 09:38-0500 Body mass index (BMI) [Ratio] 41.84 kg/m2 Jeanieizaiah Pimentellucianoaee Work Phone: [facility] 300 Work Phone: 12-23-2022 09:38-0500 Body surface area Derived from formula 1.68 m2 Jeanieizaiah Goaee Work Phone: [facility] 300 Work Phone: 12-23-2022 09:38-0500 Body temperature 97.3 [degF] Jeanieizaiah Pimentellucianoaee Work Phone: [facility] 300 Work Phone: 12-23-2022 09:38-0500 Body weight 81.65 kg Jeanie Puma Goaee Work Phone: [facility] 300 Work Phone: 12-15-2022 10:27-0500 Diastolic blood pressure 62 mm[Hg] Jeanieizaiah Goaee Work Phone: [facility] Work Phone: 12-15-2022 10:27-0500 Heart rate 78 /min Jeanieizaiah Goaee Work Phone: [facility] Work Phone: 12-15-2022 10:27-0500 Systolic blood pressure 118 mm[Hg] Jeanie Goaee Work Phone: [facility] Work Phone: 12-07-2022 08:06-0500 Diastolic blood pressure 81 mm[Hg] Jeanie Tavallaee Other Phone: [facility] 12-07-2022 08:06-0500 Heart rate 81 /min Jeanie Tavallaee Other Phone: [facility] 12-07-2022 08:06-0500 Respiratory rate 18 /min Jeanie Tavallaee Other Phone: [facility] 12-07-2022 08:06-0500 SaO2% (BldA) [Mass fraction] 96 % Jeanie Tavallaee Other Phone: [facility] 12-07-2022 08:06-0500 Systolic blood pressure 120 mm[Hg] Jeanie Tavallaee Other Phone: [facility] 12-07-2022 05:00-0500 Body temperature 97.88 [degF] Jeanie Tavallaee Other Phone: [facility] 12-07-2022 03:29-0500 Body height 139.7 cm Jeanie Tavallaee Other Phone: [facility] 12-07-2022 03:29-0500 Body weight 77.2 kg Jeanie Tavallaee Other Phone: [facility] 11-26-2022 21:00-0500 Diastolic blood pressure 88 mm[Hg] Jeanie Tavallaee Other Phone: [facility] 11-26-2022 21:00-0500 Heart rate 88 /min Jeanie Tavallaee Other Phone: [facility] 11-26-2022 21:00-0500 Respiratory rate 17 /min Jeanie Tavallaee Other Phone: [facility] 11-26-2022 21:00-0500 SaO2% (BldA) [Mass fraction] 97 % Jeanie Tavallaee Other Phone: [facility] 11-26-2022 21:00-0500 Systolic blood pressure 138 mm[Hg] Jeanie Tavallaee Other Phone: [facility] 11-26-2022 17:05-0500 Body height 139.7 cm Jeanie Tavallaee Other Phone: [facility] 11-26-2022 17:05-0500 Body temperature 97.7 [degF] Jeanie Tavallaee Other Phone: [facility] 11-26-2022 17:05-0500 Body weight 81.8 kg Jeanie Tavallaee Other Phone: [facility] 11-25-2022 11:09-0500 Diastolic blood pressure 58 mm[Hg] Jeanie M Tavallaee Work Phone: CS-Oozxxrpwyt-Yato [address] [place] Work Phone: 11-25-2022 11:09-0500 Heart rate 90 /min Jeanie M Tavallaee Work Phone: DJ-Ezwuuhggcl-Bqme [address] [place] Work Phone: 11-25-2022 11:09-0500 SaO2% (BldA) [Mass fraction] 96 % Jeanie M Tavallaee Work Phone: RN-Ecrydpredc-Hksr [address] [place] Work Phone: 11-25-2022 11:09-0500 Systolic blood pressure 90 mm[Hg] Jeanie M Tavallaee Work Phone: UY-Hwapubozcy-Wehi [address] [place] Work Phone: 11-10-2022 10:25-0500 Body height 139.7 cm Jeanie M Tavallaee Work Phone: [facility] Work Phone: 11-10-2022 10:25-0500 Body mass index (BMI) [Ratio] 41.84 kg/m2 Jeanie Puma Pimentelallaee Work Phone: [facility] Work Phone: 11-10-2022 10:25-0500 Body surface area Derived from formula 1.68 m2 Jeanie Puma Tavallaee Work Phone: [facility] Work Phone: 11-10-2022 10:25-0500 Body temperature 97.4 [degF] Jeanieizaiah Pimentelallaee Work Phone: [facility] Work Phone: 11-10-2022 10:25-0500 Body weight 81.65 kg Jeanie Pimentelallaee Work Phone: [facility] Work Phone: 11-05-2022 12:01-0500 Body height 139.7 cm Jeanie Puma Pimentelallaee Work Phone: BF-Hteytxxbua-Vyjw and [address] [place] Work Phone: 11-05-2022 12:01-0500 Body mass index (BMI) [Ratio] 40.36 kg/m2 Jeanie M Tavallaee Work Phone: MH-Pqjhtchkro-Sgsb [address] [place] Work Phone: 11-05-2022 12:01-0500 Body surface area Derived from formula 1.7 m2 Jeanie Puma Tavallaee Work Phone: XU-Vytzweaisw-Odqp and [address] [place] Work Phone: 11-05-2022 12:01-0500 Body weight 81.65 kg Jeanie Puma Tavallaee Work Phone: MY-Bqamevdctv-Yeet and [address] [place] Work Phone: 11-05-2022 12:01-0500 Diastolic blood pressure 74 mm[Hg] Jeanie Puma Tavallaee Work Phone: EV-Xerkznnemr-Atwz and [address] [place] Work Phone: 11-05-2022 12:01-0500 Heart rate 85 /min Jeanie Puma Tavallaee Work Phone: NE-Vvjzcojjmg-Mtlh and [address] [place] Work Phone: 11-05-2022 12:01-0500 SaO2% (BldA) [Mass fraction] 97 % Jeanie Puma Tavallaee Work Phone: BF-Nuszpiztcg-Kbbi and [address] [place] Work Phone: 11-05-2022 12:01-0500 Systolic blood pressure 120 mm[Hg] Jeanie M Tavallaee Work Phone: MW-Jgfkfwxbpg-Cpwc and [address] [place] Work Phone: 09-16-2022 10:11-0500 Body temperature 97.3 [degF] Jeanie Pimentelallaee Work Phone: [facility] 300 Work Phone: 09-15-2022 09:30-0500 Body height 142.24 cm Jeanie Puma Pimentelallaee Work Phone: [facility] Work Phone: 09-15-2022 09:30-0500 Body mass index (BMI) [Ratio] 40.58 kg/m2 Jeanie Puma Tavallaee Work Phone: [facility] Work Phone: 09-15-2022 09:30-0500 Body surface area Derived from formula 1.7 m2 Jeanie Puma Tavallaee Work Phone: [facility] Work Phone: 09-15-2022 09:30-0500 Body weight 82.1 kg Jeanie M Tavallaee Work Phone: [facility] Work Phone: 09-15-2022 09:30-0500 Diastolic blood pressure 82 mm[Hg] Jeanie M Tavallaee Work Phone: [facility] Work Phone: 09-15-2022 09:30-0500 Heart rate 88 /min Jeanie M Tavallaee Work Phone: [facility] Work Phone: 09-15-2022 09:30-0500 Systolic blood pressure 126 mm[Hg] Jeanie M Tavallaee Work Phone: [facility] Work Phone: 08-24-2022 12:00-0500 Diastolic blood pressure 97 mm[Hg] Jeanie Tavallaee Other Phone: [facility] 08-24-2022 12:00-0500 Heart rate 78 /min Jeanie Tavallaee Other Phone: [facility] 08-24-2022 12:00-0500 Respiratory rate 17 /min Jeanie Tavallaee Other Phone: [facility] 08-24-2022 12:00-0500 SaO2% (BldA) [Mass fraction] 96 % Jeanie Tavallaee Other Phone: [facility] 08-24-2022 12:00-0500 Systolic blood pressure 155 mm[Hg] Jeanie Tavallaee Other Phone: [facility] 08-24-2022 09:23-0500 Body height 139.7 cm Jeanie Tavallaee Other Phone: [facility] 08-24-2022 09:23-0500 Body temperature 97.7 [degF] Jeanie Tavallaee Other Phone: [facility] 08-24-2022 09:23-0500 Body weight 81.8 kg Jeanie Tavallaee Other Phone: [facility] 08-19-2022 10:23-0400 Body height 142.24 cm Jeanie M Tavallaee Work Phone: [facility] and [facility] 300 Work Phone: 08-19-2022 10:23-0400 Body mass index (BMI) [Ratio] 40.58 kg/m2 Jeanie M Tavallaee Work Phone: [facility] 300 Work Phone: 08-19-2022 10:23-0400 Body surface area Derived from formula 1.7 m2 Jeanie M Tavallaee Work Phone: [facility] 300 Work Phone: 08-19-2022 10:23-0400 Body temperature 97.8 [degF] Jeanie M Tavallaee Work Phone: [facility] 300 Work Phone: 08-19-2022 10:23-0400 Body weight 82.1 kg Jeanie M Tavallaee Work Phone: [facility] 300 Work Phone: 08-18-2022 09:22-0400 Body height 142.24 cm Jeanie M Tavallaee Work Phone: [facility] Medicine Work Phone: 08-18-2022 09:22-0400 Body mass index (BMI) [Ratio] 40.58 kg/m2 Jeanie M Tavallaee Work Phone: [facility] Work Phone: 08-18-2022 09:22-0400 Body [...] 90 /min Jeanie M Tavallaee Work Phone: [facility] Work Phone: 08-18-2022 09:22-0400 SaO2% (BldA) [Mass fraction] 97 % Jeanie M Tavallaee Work Phone: [facility] Work Phone: 08-18-2022 09:22-0400 Systolic blood pressure 129 mm[Hg] Jeanie M Tavallaee Work Phone: [facility] Work Phone: 07-21-2022 09:16-0400 Body mass index (BMI) [Ratio] Medical Reason Not Done Jeanie M Tavallaee Work Phone: [facility] Medicine Work Phone: 07-21-2022 09:16-0400 Diastolic blood pressure 93 mm[Hg] Jeanie M Tavallaee Work Phone: [facility] Work Phone: 07-21-2022 09:16-0400 Heart rate 101 /min Jeanie M Tavallaee Work Phone: [facility] Work Phone: 07-21-2022 09:16-0400 Systolic blood pressure 143 mm[Hg] Jeanie M Tavallaee Work Phone: [facility] Work Phone: 07-15-2022 13:07-0400 Body height 142.24 cm Jeanie M Tavallaee Work Phone: [facility] 300 Work Phone: 07-15-2022 13:07-0400 Body temperature 98.2 [degF] Jeanie M Tavallaee Work Phone: [facility] 300 Work Phone: 06-30-2022 13:05-0400 Body height 142.24 cm Jeanie M Tavallaee Work Phone: [facility] Medicine Work Phone: 06-30-2022 13:05-0400 Diastolic blood pressure 81 mm[Hg] Jeanie M Tavallaee Work Phone: [facility] Work Phone: 06-30-2022 13:05-0400 Heart rate 101 /min Jeanie M Tavallaee Work Phone: [facility] Work Phone: 06-30-2022 13:05-0400 Systolic blood pressure 122 mm[Hg] Jeanie M Tavallaee Work Phone: [facility] Work Phone: 05-10-2022 06:30-0400 Diastolic blood pressure 86 mm[Hg] Jeanie Tavallaee Other Phone: [facility] 05-10-2022 06:30-0400 Heart rate 70 /min Jeanie Tavallaee Other Phone: [facility] 05-10-2022 06:30-0400 Respiratory rate 16 /min Jeanie Tavallaee Other Phone: [facility] 05-10-2022 06:30-0400 SaO2% (BldA) [Mass fraction] 95 % Jeanie Tavallaee Other Phone: [facility] 05-10-2022 06:30-0400 Systolic blood pressure 158 mm[Hg] Jeanie Tavallaee Other Phone: [facility] 05-05-2022 13:45-0400 Body height 142.24 cm Jeanie M Tavallaee Work Phone: [facility] Work Phone: 05-05-2022 13:45-0400 Body mass index (BMI) [Ratio] 40.8 kg/m2 Jeanie M Tavallaee Work Phone: [facility] Work Phone: 05-05-2022 13:45-0400 Body surface area Derived from formula 1.71 m2 Jeanie M Tavallaee Work Phone: [facility] Work Phone: 05-05-2022 13:45-0400 Body weight 82.55 kg Jeanie M Tavallaee Work Phone: [facility] Work Phone: 05-05-2022 13:45-0400 Diastolic blood pressure 80 mm[Hg] Jeanie M Tavallaee Work Phone: [facility] Work Phone: 05-05-2022 13:45-0400 Heart rate 80 /min Jeanie M Tavallaee Work Phone: [facility] Work Phone: 05-05-2022 13:45-0400 Systolic [...] 1.71 m2 Jeanie Puma Tavallaee Work Phone: [facility] Work Phone: 04-06-2022 12:40-0400 Body weight 82.56 kg Jeanie Puma Pimentelallaee Work Phone: [facility] Work Phone: 04-06-2022 12:40-0400 Diastolic blood pressure 80 mm[Hg] Jeanie Puma Tavallaee Work Phone: [facility] Work Phone: 04-06-2022 12:40-0400 Heart rate 82 /min Jeanie Puma Tavallaee Work Phone: [facility] Work Phone: 04-06-2022 12:40-0400 SaO2% (BldA) [Mass fraction] 96 % Jeanie Puma Tavallaee Work Phone: [facility] Work Phone: 04-06-2022 12:40-0400 Systolic blood pressure 108 mm[Hg] Jeanie Puma Tavallaee Work Phone: [facility] Work Phone: 03-04-2022 11:54-0400 Body height 142.24 cm Jeanie M Tavallaee Work Phone: [facility] Work Phone: 03-04-2022 11:54-0400 Body mass index (BMI) [Ratio] 41.03 kg/m2 Jeanie M Tavallaee Work Phone: [facility] Work Phone: 03-04-2022 11:54-0400 Body surface area Derived from formula 1.71 m2 Jeanie M Tavallaee Work Phone: [facility] Work Phone: 03-04-2022 11:54-0400 Body weight 83 kg Jeanie M Tavallaee Work Phone: [facility] Work Phone: 03-04-2022 11:54-0400 Diastolic blood pressure 76 mm[Hg] Jeanie M Tavallaee Work Phone: [facility] Work Phone: 03-04-2022 11:54-0400 Heart rate 76 /min Jeanie M Tavallaee Work Phone: [facility] Work Phone: 03-04-2022 11:54-0400 Systolic blood pressure 120 mm[Hg] Jeanie M Tavallaee Work Phone: [facility] Work Phone: 02-04-2022 11:27-0400 Body height 142.24 cm Jeanie M Tavallaee Work Phone: [facility] Work Phone: 02-04-2022 11:27-0400 Body mass index [...] 83.46 kg Jeanie M Tavallaee Work Phone: [facility] Work Phone: 01-07-2022 11:48-0400 Diastolic blood pressure 76 mm[Hg] Jeanie M Tavallaee Work Phone: [facility] Work Phone: 01-07-2022 11:48-0400 Heart rate 94 /min Jeanie M Tavallaee Work Phone: [facility] Work Phone: 01-07-2022 11:48-0400 Systolic [...] 40.58 kg/m2 Jeanie M Tavallaee Work Phone: [facility] Work Phone: 12-17-2021 13:41-0500 Body surface area Derived from formula 1.7 m2 Jeanie M Tavallaee Work Phone: [facility] Work Phone: 12-17-2021 13:41-0500 Body weight 82.1 kg Jeanie M Tavallaee Work Phone: [facility] Work Phone: 12-17-2021 13:41-0500 Diastolic blood pressure 84 mm[Hg] Jeanie M Tavallaee Work Phone: [facility] Work Phone: 12-17-2021 13:41-0500 Heart rate 90 /min Jaenie M Tavallaee Work Phone: [facility] Work Phone: 12-17-2021 13:41-0500 Systolic blood pressure 104 mm[Hg] Jeanie M Tavallaee Work Phone: [facility] Work Phone: 12-13-2021 15:00-0500 Diastolic blood pressure 82 mm[Hg] Jeanie Tavallaee Other Phone: [facility] 12-13-2021 15:00-0500 Heart rate 93 /min Jeanie Tavallaee Other Phone: [facility] 12-13-2021 15:00-0500 Respiratory rate 16 /min Jeanie Tavallaee Other Phone: [facility] 12-13-2021 15:00-0500 SaO2% (BldA) [Mass fraction] 92 % Jeanie Tavallaee Other Phone: [facility] 12-13-2021 15:00-0500 Systolic blood pressure 136 mm[Hg] Jeanie Tavallaee Other Phone: [facility] 12-13-2021 12:34-0500 Body height 139.7 cm Jeanie Tavallaee Other Phone: [facility] 12-13-2021 12:34-0500 Body temperature 98.6 [degF] Jeanie Tavallaee Other Phone: [facility] 12-13-2021 12:34-0500 Body weight 77.3 kg Jeanie Tavallaee Other Phone: [facility] 12-08-2021 11:43-0500 Diastolic blood pressure 72 mm[Hg] Jeanie M Tavallaee Work Phone: [facility] Work Phone: 12-08-2021 11:43-0500 Heart rate 84 /min Jeanie M Tavallaee Work Phone: [facility] Work Phone: 12-08-2021 11:43-0500 Systolic [...] pressure 69 mm[Hg] Jeanie Tavallaee Other Phone: [facility] 12-05-2021 11:45-0500 Heart rate 88 /min Jeanie Tavallaee Other Phone: [facility] 12-05-2021 11:45-0500 Respiratory rate 16 /min Jeanie Tavallaee Other Phone: [facility] 12-05-2021 11:45-0500 SaO2% (BldA) [Mass fraction] 95 % Jeanie Tavallaee Other Phone: [facility] 12-05-2021 11:45-0500 Systolic blood pressure 136 mm[Hg] Jeanie Tavallaee Other Phone: [facility] 12-05-2021 07:08-0500 Body height 139.7 cm Jeanie Tavallaee Other Phone: [facility] 12-05-2021 07:08-0500 Body temperature 97.88 [degF] Jeanie Tavallaee Other Phone: [facility] 12-05-2021 07:08-0500 Body weight 77.3 kg Jeanie Tavallaee Other Phone: [facility] 11-28-2021 00:30-0500 Diastolic blood pressure 67 mm[Hg] Jeanie Tavallaee Other Phone: [facility] 11-28-2021 00:30-0500 Heart rate 94 /min Jeanie Tavallaee Other Phone: [facility] 11-28-2021 00:30-0500 Respiratory rate 16 /min Jeanie Tavallaee Other Phone: [facility] 11-28-2021 00:30-0500 SaO2% (BldA) [Mass fraction] 95 % Jeanie Tavallaee Other Phone: [facility] 11-28-2021 00:30-0500 Systolic blood pressure 122 mm[Hg] Jeanie Tavallaee Other Phone: [facility] 11-27-2021 21:01-0500 Body temperature 98.6 [degF] Jeanie Tavallaee Other Phone: [facility] 08-12-2021 10:36-0400 Diastolic blood pressure 70 mm[Hg] Jeanie M Tavallaee Work Phone: [facility] Work Phone: 08-12-2021 10:36-0400 Systolic [...] 39.91 kg/m2 Jeanie M Tavallaee Work Phone: [facility] Work Phone: 07-17-2021 10:51-0400 Body surface area Derived from formula 1.69 m2 Jeanie M Tavallaee Work Phone: [facility] Work Phone: 07-17-2021 10:51-0400 Body weight 80.74 kg Jeanie Puma Pimentelallaee Work Phone: [facility] Work Phone: 07-17-2021 10:51-0400 Diastolic blood pressure 84 mm[Hg] Jeanie M Tavallaee Work Phone: [facility] Work Phone: 07-17-2021 10:51-0400 Heart rate 68 /min Jeanieizaiah Pimentelallaee Work Phone: [facility] Work Phone: 07-17-2021 10:51-0400 Systolic blood pressure 130 mm[Hg] Jeanieizaiah Pimentelallaee Work Phone: [facility] Work Phone: 07-14-2021 12:55-0400 Body height 142.24 cm Jeanie M Tavallaee Work Phone: [place] [address] [place] Work Phone: 07-14-2021 12:55-0400 Body mass index (BMI) [Ratio] 39.91 kg/m2 Jeanie Puma Tavallaee Work Phone: [facility] [address] [place] Work Phone: 07-14-2021 12:55-0400 Body surface area Derived from formula 1.69 m2 Jeanie Puma Tavallaee Work Phone: [place] [address] [place] Work Phone: 07-14-2021 12:55-0400 Body temperature 97.1 [degF] Jeanie M Tavallaee Work Phone: [employer] [place] [address] [place] Work Phone: 07-14-2021 12:55-0400 Body weight 80.74 kg Jeanie M Tavallaee Work Phone: [address] Work Phone: 07-14-2021 12:55-0400 Diastolic blood pressure 76 mm[Hg] Jeanie M Tavallaee Work Phone: [address] Work Phone: 07-14-2021 12:55-0400 Systolic blood pressure 126 mm[Hg] Jeanie M Tavallaee Work Phone: [address] Work Phone: 07-10-2021 09:30-0400 Diastolic blood pressure 69 mm[Hg] Jeanie Tavallaee Other Phone: [facility] 07-10-2021 09:30-0400 Heart rate 79 /min Jeanie Tavallaee Other Phone: [facility] 07-10-2021 09:30-0400 SaO2% (BldA) [Mass fraction] 94 % Jeanie Tavallaee Other Phone: [facility] 07-10-2021 09:30-0400 Systolic blood pressure 105 mm[Hg] Jeanie Tavallaee Other Phone: [facility] 07-10-2021 08:18-0400 Body temperature 97.88 [degF] Jeanie Tavallaee Other Phone: [facility] 07-10-2021 08:18-0400 Respiratory rate 20 /min Jeanie Tavallaee Other Phone: [facility] 07-01-2021 10:30-0400 Body height 142.24 cm Jeanie Puma Tavallaee Work Phone: [place] [address] [place] Work Phone: 07-01-2021 10:30-0400 Body mass index (BMI) [Ratio] 40.08 kg/m2 Jeanie Puma T[place]allaee Work Phone: [place] [address] [place] Work Phone: 07-01-2021 10:30-0400 Body surface area Derived from formula 1.69 m2 Jeanie Puma Tavallaee Work Phone: [place] [address] [place] Work Phone: 07-01-2021 10:30-0400 Body temperature 98 [degF] Jeanie Puma Tavallaee Work Phone: [address] Work Phone: 07-01-2021 10:30-0400 Body weight 81.1 kg Jeanie Puma Tavallaee Work Phone: [place] [address] [place] Work Phone: 07-01-2021 10:30-0400 Diastolic blood pressure 84 mm[Hg] Jeanie Puma Tavallaee Work Phone: [place] [address] [place] Work Phone: 07-01-2021 10:30-0400 Systolic blood pressure 120 mm[Hg] Jeanie Puma Tavallaee Work Phone: [address] Work Phone: 06-24-2021 11:39-0400 Body height 142.24 cm Jeanie M Tavallaee Work Phone: [facility] Work Phone: 06-24-2021 11:39-0400 Body mass index (BMI) [Ratio] 40.13 kg/m2 Jeanie M Tavallaee Work Phone: [facility] Work Phone: 06-24-2021 11:39-0400 Body surface area Derived from formula 1.69 m2 Jeanie Puma Pimentelallaee Work Phone: [facility] Work Phone: 06-24-2021 11:39-0400 Body weight 81.19 kg Jeanie M Tavallaee Work Phone: [facility] Work Phone: 06-24-2021 11:39-0400 Diastolic blood pressure 74 mm[Hg] Jeanie Puma Pimentelallaee Work Phone: [facility] Work Phone: 06-24-2021 11:39-0400 Heart rate 94 /min Jeanieizaiah Pimentelallaee Work Phone: [facility] Work Phone: 06-24-2021 11:39-0400 Systolic blood pressure 98 mm[Hg] Jeanieizaiah Pimentelallaee Work Phone: [facility] Work Phone: 05-27-2021 13:17-0400 Body height 142.2 cm Jeanie Tavallaee Other Phone: [facility] 05-27-2021 13:17-0400 Body temperature 97.88 [degF] Jeanie Tavallaee Other Phone: [facility] 05-27-2021 13:17-0400 Diastolic blood pressure 79 mm[Hg] Jeanie Tavallaee Other Phone: [facility] 05-27-2021 13:17-0400 Heart rate 105 /min Jeanie Tavallaee Other Phone: [facility] 05-27-2021 13:17-0400 Systolic blood pressure 120 mm[Hg] Jeanie Tavallaee Other Phone: [facility] 05-19-2021 13:02-0400 Body height 142.24 cm Jeanie M Tavallaee Work Phone: [facility] Work Phone: 05-19-2021 13:02-0400 Body mass index (BMI) [Ratio] 40.13 kg/m2 Jeanie M Tavallaee Work Phone: [facility] Work Phone: 05-19-2021 13:02-0400 Body surface area Derived from formula 1.69 m2 Jeanie M Tavallaee Work Phone: [facility] Work Phone: 05-19-2021 13:02-0400 Body weight 81.19 kg Jeanie Puma T[place] Work Phone: [facility] Work Phone: 05-19-2021 13:02-0400 Diastolic blood pressure 78 mm[Hg] Jeanie M Tavallaee Work Phone: [facility] Work Phone: 05-19-2021 13:02-0400 Heart rate 92 /min Jeanie Puma T[place] Work Phone: [facility] Work Phone: 05-19-2021 13:02-0400 Systolic blood pressure 134 mm[Hg] Jeanie M Tavallaee Work Phone: [facility] Work Phone: 05-18-2021 10:36-0400 Diastolic blood pressure 91 mm[Hg] Jeanie Tavallaee Other Phone: [facility] 05-18-2021 10:36-0400 Heart rate 96 /min Ejanie Tavallaee Other Phone: [facility] 05-18-2021 10:36-0400 Respiratory rate 18 /min Jeanie Tavallaee Other Phone: [facility] 05-18-2021 10:36-0400 SaO2% (BldA) [Mass fraction] 97 % Jeanie Tavallaee Other Phone: [facility] 05-18-2021 10:36-0400 Systolic blood pressure 131 mm[Hg] Jeanie Tavallaee Other Phone: [facility] 05-18-2021 05:13-0400 Body height 142.2 cm Jeanie Tavallaee Other Phone: [facility] 05-18-2021 05:13-0400 Body temperature 98.96 [degF] Jeanie Tavallaee Other Phone: [facility] 05-18-2021 05:13-0400 Body weight 74 kg Jeanie Tavallaee Other Phone: [facility] 05-15-2021 21:00-0400 Diastolic blood pressure 53 mm[Hg] Jeanie Tavallaee Other Phone: [facility] 05-15-2021 21:00-0400 Heart rate 94 /min Jeanie Tavallaee Other Phone: [facility] 05-15-2021 21:00-0400 Respiratory rate 18 /min Jeanie Tavallaee Other Phone: [facility] 05-15-2021 21:00-0400 SaO2% (BldA) [Mass fraction] 95 % Jeanie Tavallaee Other Phone: [facility] 05-15-2021 21:00-0400 Systolic blood pressure 110 mm[Hg] Jeanie Tavallaee Other Phone: [facility] 05-15-2021 15:07-0400 Body height 144.7 cm Jeanie Tavallaee Other Phone: [facility] 05-15-2021 15:07-0400 Body temperature 99.14 [degF] Jeanie Tavallaee Other Phone: [facility] 05-15-2021 15:07-0400 Body weight 77.3 kg Jeanie Tavallaee Other Phone: [facility] 05-14-2021 16:30-0400 Diastolic blood pressure 62 mm[Hg] Jeanie Tavallaee Other Phone: [facility] 05-14-2021 16:30-0400 Heart rate 90 /min Jeanie Tavallaee Other Phone: [facility] 05-14-2021 16:30-0400 Respiratory rate 16 /min Jeanie Tavallaee Other Phone: [facility] 05-14-2021 16:30-0400 SaO2% (BldA) [Mass fraction] 96 % Jeanie Tavallaee Other Phone: [facility] 05-14-2021 16:30-0400 Systolic blood pressure 116 mm[Hg] Jeanie Tavallaee Other Phone: [facility] 05-14-2021 12:07-0400 Body temperature 99.14 [degF] Jeanie Tavallaee Other Phone: [facility] 05-14-2021 12:07-0400 Body weight 75 kg Jeanie Tavallaee Other Phone: [facility] 04-08-2021 11:29-0400 Body height 142.24 cm Jeanie M Tavallaee [...] 124 mm[Hg] Jeanie Puma Tavallaee Work Phone: [facility] Work Phone: 04-07-2021 10:08-0400 Body height 142.24 cm Jeanie Puma Tavallaee Work Phone: [place] [address] [place] Work Phone: 04-07-2021 10:08-0400 Body temperature 98 [degF] Jeanie Puma Tavallaee Work Phone: [facility] [address] [place] Work Phone: 04-07-2021 10:08-0400 Diastolic blood pressure 82 mm[Hg] Jeanie Ayala Work Phone: [place] [address] [employer] Work Phone: 04-07-2021 10:08-0400 Systolic blood pressure 122 mm[Hg] Jeanie Ayala Work Phone: [place] [address] [employer] Work Phone: 12-18-2020 13:00-0500 BP Diastolic 73 mm[Hg] Julian Galeana [facility] 12-18-2020 13:00-0500 BP Systolic 107 mm[Hg] Julian Galeana [facility] 12-18-2020 13:00-0500 Height 144.8 cm Juliancesar Galeana [facility] 12-18-2020 13:00-0500 Pulse (Heart Rate) 85 /min Julian Galeana [facility] 12-18-2020 13:00-0500 Pulse Oximetry 95 % Juliancesar Galeana [facility] 12-03-2020 11:56-0500 Body Temperature 98.8 [degF] [facility] 12-03-2020 11:56-0500 BP Diastolic 73 mm[Hg] [facility] 12-03-2020 11:56-0500 BP Systolic 106 mm[Hg] [facility] 12-03-2020 11:56-0500 Pulse (Heart Rate) 96 /min [facility] 12-03-2020 11:56-0500 Pulse Oximetry 98 % [facility] 12-03-2020 11:56-0500 Respiratory Rate 16 /min [facility] 12-01-2020 18:34-0500 BMI (Body Mass Index) 35.78 kg/m2 [facility] 12-01-2020 18:34-0500 Body weight 75 kg [facility] 12-01-2020 18:34-0500 Height 144.8 cm [facility] 06-18-2020 15:25-0400 BP Diastolic 88 mm[Hg] Urban Purdy MW-Lyzonhjkd-Slq ur [facility] [address] [facility] Work Phone: [...] 15:19-0400 Respiratory Rate 18 /min Urban Mcdonaldcamila UU-Kqnbujlbu-Lx [address] [facility] Work Phone: 09-25-2019 12:03-0500 BMI (Body Mass Index) 39.01 kg/m2 [facility] [address] [place] Work Phone: 09-25-2019 12:03-0500 Body weight 78.93 kg Anel [facility] [address] [place] Work Phone: 09-25-2019 12:03-0500 BP Diastolic 72 mm[Hg] Anel [facility]ales[facility] [address] [place] Work Phone: 09-25-2019 12:03-0500 BP Systolic 110 mm[Hg] Anel [facility]ales-[facility] [address] [place] Work Phone: 09-25-2019 12:03-0500 BSA (Body Surface Area) 1.67 m2 Anel Rosales-[place] [address] [place] Work Phone: 09-25-2019 12:03-0500 Height 142.24 cm Anel Rosales-Anthonylan d [address] [place] Work Phone: 08-07-2019 13:01-0400 BMI (Body Mass Index) 40.11 kg/m2 Anel Rosales-[facility] [address] [place] Work Phone: 08-07-2019 13:01-0400 Body weight 78.61 kg Anel Rosales-[facility] [address] [place] Work Phone: 08-07-2019 13:01-0400 BP Diastolic 70 mm[Hg] Anel Rosales-Anthonylan d [address] [place] Work Phone: 08-07-2019 13:01-0400 BP Systolic 106 mm[Hg] Anel Rosales-Anthonylan d [address] [place] Work Phone: 08-07-2019 13:01-0400 BSA (Body Surface Area) 1.65 m2 Anel [facility]ales[facility] [address] [place] Work Phone: 08-07-2019 13:01-0400 Height 140 cm Anel Rosales-[facility] [address] [place] Work Phone: 03-16-2019 12:13-0400 Body Temperature 98.6 [degF] [facility] 03-16-2019 12:13-0400 BP Diastolic 79 mm[Hg] Generic [facility] 03-16-2019 12:13-0400 BP Systolic 138 mm[Hg] [facility] 03-16-2019 12:13-0400 Pulse (Heart Rate) 73 /min [facility] 03-16-2019 12:13-0400 Pulse Oximetry 97 % [facility] 03-16-2019 12:13-0400 Respiratory Rate 14 /min [facility] 03-16-2019 06:46-0400 BMI (Body Mass Index) 33.85 kg/m2 [facility] 03-16-2019 06:46-0400 Height 142.2 cm [facility] 03-16-2019 06:46-0400 Weight 68.49 kg [facility] 03-08-2019 09:03-0400 BMI (Body Mass Index) 35.1 [...] 08:52-0400 BMI (Body Mass Index) 35.11 kg/m2 [facility] 12-26-2018 08:52-0400 Body weight 70.8 kg [facility] 12-26-2018 08:52-0400 BP Diastolic 74 mm[Hg] [facility] 12-26-2018 08:52-0400 BP Systolic 114 mm[Hg] [facility] 12-26-2018 08:52-0400 Height 142 cm [facility] 12-26-2018 08:52-0400 Pulse (Heart Rate) 87 /min [facility] 12-26-2018 08:52-0400 Pulse Oximetry 95 % [facility] 11-22-2018 14:30-0500 BMI (Body Mass Index) 31.51 kg/m2 [facility] 11-22-2018 14:30-0500 Body Temperature 98.1 [degF] [facility] 11-22-2018 14:30-0500 BP Diastolic 88 mm[Hg] [facility] 11-22-2018 14:30-0500 BP Systolic 138 mm[Hg] [facility] 11-22-2018 14:30-0500 Height 149.9 cm [facility] 11-22-2018 14:30-0500 Pulse (Heart Rate) 82 /min [facility] 11-22-2018 14:30-0500 Pulse Oximetry 98 % [facility] 11-22-2018 14:30-0500 Respiratory Rate 16 /min [facility] 11-22-2018 14:30-0500 Weight 70.76 kg [facility] 11-22-2018 10:31-0500 BMI (Body Mass Index) 31.65 kg/m2 [facility] 11-22-2018 10:31-0500 BP Diastolic 105 mm[Hg] [facility] 11-22-2018 10:31-0500 BP Systolic 155 mm[Hg] Zeke Onofre [facility] 11-22-2018 10:31-0500 Height 150 cm Zeke Onofre [facility] 11-22-2018 10:31-0500 Pulse (Heart Rate) 85 /min Zeke Onofre [facility] 11-22-2018 10:31-0500 Pulse Oximetry 96 % Zeke Onofre [facility] 11-22-2018 10:31-0500 [facility] 10-12-2018 15:07-0500 BP Diastolic 86 mm[Hg] [...] 10:16-0400 BMI (Body Mass Index) 34.19 kg/m2 [facility] 06-16-2018 10:16-0400 Body Temperature 97.9 [degF] [facility] 06-16-2018 10:16-0400 BP Diastolic 86 mm[Hg] [facility] 06-16-2018 10:16-0400 BP Systolic 128 mm[Hg] [facility] 06-16-2018 10:16-0400 Height 144.8 cm [facility] 06-16-2018 10:16-0400 Pulse (Heart Rate) 94 /min [facility] 06-16-2018 10:16-0400 Pulse Oximetry 97 % [facility] 06-16-2018 10:16-0400 Respiratory Rate 16 /min [facility] 06-16-2018 10:16-0400 Weight 71.67 kg [facility] 05-19-2018 11:32-0400 BMI (Body Mass Index) 35.2 kg/m2 [facility] 05-19-2018 11:32-0400 Body Temperature 98.6 [degF] [facility] 05-19-2018 11:32-0400 BP Diastolic 84 mm[Hg] [facility] 05-19-2018 11:32-0400 BP Systolic 116 mm[Hg] [facility] 05-19-2018 11:32-0400 Height 142.2 cm [facility] 05-19-2018 11:32-0400 Pulse (Heart Rate) 82 /min [facility] 05-19-2018 11:32-0400 Pulse Oximetry 98 % [facility] 05-19-2018 11:32-0400 Respiratory Rate 16 /min [facility] 05-19-2018 11:32-0400 Weight 71.22 kg [facility] 05-03-2018 14:36-0400 BMI (Body Mass Index) 35.58 kg/m2 [facility] 05-03-2018 14:36-0400 Body Temperature 98.2 [degF] [facility] 05-03-2018 14:36-0400 BP Diastolic 66 mm[Hg] [facility] 05-03-2018 14:36-0400 BP Systolic 98 mm[Hg] [facility] 05-03-2018 14:36-0400 Height 142 cm [facility] 05-03-2018 14:36-0400 Pulse (Heart Rate) 72 /min [facility] 05-03-2018 14:36-0400 Pulse Oximetry 98 % [facility] 05-03-2018 14:36-0400 Respiratory Rate 16 /min [facility] 05-03-2018 14:36-0400 Weight 71.76 kg [facility] 01-04-2018 14:04-0400 BMI (Body Mass Index) 34.62 kg/m2 [facility] 01-04-2018 14:04-0400 Body Temperature 98.01 [degF] [facility] 01-04-2018 14:04-0400 BP Diastolic 82 mm[Hg] Dimas Mendy [facility] 01-04-2018 14:04-0400 BP Systolic 115 mm[Hg] Dimas Brooke [facility] 01-04-2018 14:04-0400 Height 142.2 cm Dimas Mendy [facility] 01-04-2018 14:04-0400 Pulse (Heart Rate) 82 /min Dimas Mendy [facility] 01-04-2018 14:04-0400 Pulse Oximetry 97 % Dimas Mendy [facility] 01-04-2018 14:04-0400 Respiratory Rate 18 /min Dimas Mendy [facility] 01-04-2018 14:04-0400 Weight 70.03 kg Dimas Mendy [facility] 07-15-2017 10:45-0400 BMI (Body Mass Index) 32.91 kg/m2 [facility] Work Phone: 07-15-2017 10:45-0400 Body Temperature 98.01 [degF] [facility] Work Phone: 07-15-2017 10:45-0400 BP Diastolic 68 mm[Hg] [facility] Work Phone: 07-15-2017 10:45-0400 BP Systolic 87 mm[Hg] [facility] Work Phone: 07-15-2017 10:45-0400 Height 142.2 cm [facility] Work Phone: 07-15-2017 10:45-0400 Pulse (Heart Rate) 92 /min [facility] Work Phone: 07-15-2017 10:45-0400 Pulse Oximetry 94 % [facility] Work Phone: 07-15-2017 10:45-0400 Respiratory Rate 16 /min [facility] Work Phone: 07-15-2017 10:45-0400 Weight 66.59 kg [facility] Work Phone: 06-28-2017 15:03-0400 BMI (Body Mass Index) 33.23 kg/m2 [facility] Work Phone: 06-28-2017 15:03-0400 Body Temperature 98.1 [degF] [place] Yamil [facility] Work Phone: 06-28-2017 15:03-0400 BP Diastolic 72 mm[Hg] [place] Yamil [facility] Work Phone: 06-28-2017 15:03-0400 BP Systolic 102 mm[Hg] [facility] Work Phone: 06-28-2017 15:03-0400 Height 142.2 cm [facility] Work Phone: 06-28-2017 15:03-0400 Pulse (Heart Rate) 98 /min [facility] Work Phone: 06-28-2017 15:03-0400 Pulse Oximetry 98 % [facility] Work Phone: 06-28-2017 15:03-0400 Respiratory Rate 16 /min [facility] Work Phone: 06-28-2017 15:03-0400 Weight 67.22 kg [facility] Work Phone: Encounters Encounter Date Encounter Type Care Provider Facility Start: 04-04-2025 End: 04-05-2025 Emergency department patient visit Dr. Sree Jamison MD Work Phone: -Emergency Department Work Phone: Start: 03-21-2025 End: 03-21-2025 Emergency department patient visit Dr. Sree Jamison MD Work Phone: -Emergency Department Work Phone: Start: 03-13-2025 End: 03-15-2025 Evaluation and management of inpatient Sohail Hernandez MD PhD Work Phone: [facility] Comment on above: Seizure disorder (CM S/HCC) (HCC) (Primary Dx) Start: 02-19-2025 End: 02-19-2025 ambulatory SOHAIL HERNANDEZ [facility] Start: 02-19-2025 End: 02-19-2025 Office outpatient visit 40 minutes Mee Perez [employer] Work Phone: [facility] Comment on above: Focal epilepsy with impairment of consciousness, intractable (HCC) (Primary Dx); 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) Start: 01-26-2025 End: 01-26-2025 Telephone encounter Valentina Chopra MD Work Phone: [facility] Comment on above: Med Management Start: 01-25-2025 End: 01-25-2025 Office outpatient visit 15 minutes Valentina Chopra MD Work Phone: [facility] Comment on above: 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) (Primary Dx); Focal epilepsy with impairment of consciousness, intractable (HCC); Tremor; Dizziness Start: 01-25-2025 End: 01-25-20[facility] Start: 01-01-[address] Sree Jamison MD -Laboratory Specimen Work Phone: Start: 01-01-2025 ambulatory Sree Jamison Facility:[facility] Start: 12-08-2024 End: 12-08-2024 Office outpatient visit 25 minutes Sohail Hernandez MD PhD Work Phone: [facility] Comment on above: Focal epilepsy with impairment of consciousness, intractable (HCC) (Primary Dx) Start: 12-08-2024 End: 12-08-2024 ambulatory SOHAIL HERNANDEZ [facility] Start: 11-07-2024 End: 11-07-2024 Emergency department patient visit Sree Jamison Facility:[facility] Start: 11-06-2024 End: 11-06-2024 Emergency department patient visit Tim Newby Facility:[facility] Start: 11-04-2024 End: 11-04-2024 Emergency department patient visit Mathew Perez Facility:[facility] Start: 10-30-2024 End: 03-16-2025 Telephone encounter Sohail Hernandez MD PhD Work Phone: [facility] Central Scheduling Comment on above: Other ([facility]) Start: 10-26-2024 End: 10-26-2024 Office outpatient visit 40 minutes Sohail Hernandez MD PhD Work Phone: [facility] Neurology [facility] Comment on above: Focal epilepsy with impairment of consciousness, intractable (HCC) (Primary Dx) Start: 10-26-2024 End: 10-26-2024 ambulatory JEANIE TAVALLAEE [facility] Start: 10-14-2024 End: 10-14-2024 Emergency department patient visit Fran Naylor Facility:[facility] Start: 10-02-2024 End: 10-03-2024 Emergency department patient visit Geovanny Arndt Facility:[facility] Start: 09-26-2024 End: 09-26-2024 Emergency department patient visit Georges Kelley Facility:[facility] Start: 08-30-2024 End: 08-30-2024 [facility] Start: 08-30-2024 End: 08-30-2024 Office outpatient visit 25 minutes Gayatri Bobby PA-C Work Phone: [facility] Dermatology - Jerri Denis Comment on above: Seborrheic dermatiti s Start: 07-25-2024 End: 07-26-2024 Emergency department patient visit Archie Sanches Facility:[facility] Start: 07-18-2024 End: 07-18-2024 Office outpatient visit 40 minutes Valentina Chopra MD Work Phone: [facility] Neuroscience [facility] Comment on above: 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) (Primary Dx); Tremor; Frequent falls Start: 07-18-2024 End: 07-18-2024 ambulatory JEANIE TAVALLAEE [facility] Start: 07-11-2024 End: 07-14-2024 Telephone encounter Sohail Hernandez MD PhD Work Phone: [facility] Comment on above: Other (Scheduling) Start: 07-07-2024 End: 07-07-2024 Office outpatient visit 40 minutes Sohail Hernandez MD PhD Work Phone: [facility] Neurology [facility] Comment on above: 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) Start: 07-07-2024 End: 07-07-2024 ambulatory JEANIE AYALA [facility] Start: 06-16-2024 End: 06-16-2024 Postop follow up visit related to original px Raúl Hudson MD Work Phone: [facility] Comment on above: S/P laparoscopic diomedes endectomy (Primary Dx) Start: 06-16-2024 End: 06-16-2024 ambulatory RAÚL HUDSON [facility] Ambulatory Start: 06-08-2024 Evaluation and manag ement of inpatient [facility] Start: 06-04-2024 End: 06-06-2024 Evaluation and management of inpatient Bang Tovar Work Phone: [facility] Med Surg Oncology Start: 05-31-2024 End: 05-31-2024 Office outpatient new 45 minutes Gayatri Bobby PA-C Work Phone: [facility] Dermatology Comment on above: Seborrheic dermatiti s Start: 05-31-2024 End: 05-31-2024 [facility] Start: 05-04-2024 Evaluation and manag ement of inpatient [facility] Start: 04-27-2024 End: 04-27-2024 Subsequent hospital visit by physician Krishna Parada [facility] Comment on above: Encounter for screen ing mammogram for breast cancer Start: 04-27-2024 End: 04-27-2024 ambulatory JEANIE Rubio [facility] Start: 04-19-2024 End: 04-19-2024 Patient encounter procedure Shayy Mcginnis MD Work Phone: [facility] Work Phone: Start: 04-19-2024 End: 04-19-2024 Periodic preventive med est patient 40-64yrs Shayy Mcginnis MD Work Phone: [facility] Comment on above: Well woman exam (no gynecological exam) (Primary Dx); Screening mammogram for breast cancer Start: 04-19-2024 End: 04-19-2024 ambulatory [facility] Start: 04-19-2024 End: 04-19-2024 Encounter for general adult medical examination without abnormal findings [facility] Start: 04-17-2024 End: 04-17-2024 ambulatory [facility] Start: 04-10-2024 Evaluation and manag ement of inpatient [facility] Start: 04-07-2024 End: 04-07-2024 Emergency department patient visit [facility] Start: 04-05-2024 End: 04-05-2024 Office outpatient new 45 minutes Khalida Mtz MD Work Phone: [facility] Comment on above: Morbid obesity with BMI of 40.0-44.9, adult (Multi) (Primary Dx); Endometriosis; Thrombocytopenia (CMS-HCC); Chronic systolic (congestive) heart failure (Multi) Start: 04-05-2024 End: 04-05-2024 ambulatory [facility] Ambulatory Start: 04-04-2024 End: 04-04-2024 Office outpatient visit 15 minutes Mejia Cullen MD Work Phone: [facility] Comment on above: Psoriasis (Primary D x); Frequent falls; Tremor; Impaired mobility Start: 04-04-2024 End: 04-04-2024 ambulatory MEJIA CULLEN [facility] Start: 03-04-2024 End: 03-07-2024 Evaluation and management of inpatient [facility] Start: 03-03-2024 End: 03-03-2024 Emergency department patient visit [facility] Start: 02-07-2024 End: 02-07-2024 ambulatory [facility] Start: 02-04-2024 ambulatory [facility] Start: 02-04-2024 End: 02-04-2024 Office outpatient new 30 minutes Olinda Luna MD Work Phone: [facility] [employer]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 Comment on above: Encounter to [facility] (Primary Dx) Start: 01-03-2024 Telephone encounter Mejia alicia MD Work Phone: [facility] Comment on above: question Start: 01-03-2024 End: 01-03-2024 Office outpatient visit 15 minutes Mejia Cullen MD Work Phone: [facility] Comment on above: Chronic right should er pain (Primary Dx) Start: 12-31-2023 End: 01-01-2024 ambulatory [facility] Start: 12-31-2023 End: 01-01-2024 Emergency department patient visit Moe Tarango MD Work Phone: [facility] Emergency Department Start: 12-28-2023 Telephone encounter Mejia alicia MD Work Phone: [facility] Comment on above: Orders Start: 12-22-2023 Telephone encounter Mejia alicia MD Work Phone: [facility] Comment on above: Records Request/[facility] Start: 11-17-2023 End: 11-17-2023 Emergency department patient visit Larry Eugene DO Work Phone: [facility] Emergency Medicine Comment on above: Contusion of back, u nspecified laterality, initial encounter (Primary Dx); Fall, initial encounter Start: 11-10-2023 End: 11-10-2023 Office outpatient visit 15 minutes Valentina Munoz MD Work Phone: [facility] Comment on above: Endometriosis (Prima ry Dx) Start: 11-08-2023 End: 11-08-2023 Office outpatient visit 15 minutes Jeanie Ayala MD Work Phone: [facility] Comment on above: Anxiety; Chronic systolic (congestive) heart failure (CMS/HCC); Depression, major, single episode, severe (CMS/HCC); Seizure-like activity (CMS/HCC); Sedative, hypnotic or anxiolytic dependence with withdrawal, unspecified (CMS/HCC) Start: 10-29-2023 End: 10-29-2023 Patient encounter procedure Matthew Pérez MD [facility] Comment on above: Postop check (Primar y Dx) Start: 10-25-2023 End: 10-25-2023 Office outpatient visit 15 minutes Mejia Cullen MD Work Phone: [facility] Comment on above: Chronic midline low back pain without sciatica (Primary Dx); Frequent falls; Tremor Start: 10-14-2023 End: 10-14-2023 ambulatory MATTHEW PÉREZ [facility] Start: 10-05-2023 End: 10-05-2023 ambulatory EVERETTLAVINIA LAGOS [facility] Start: 10-05-2023 End: 10-05-2023 Patient encounter status [facility] Work Phone: Start: 10-05-2023 End: 10-05-2023 Subsequent hospital visit by physician [facility] Comment on above: Preop testing; Tachycardia Arrived Start: 10-05-2023 End: 10-05-2023 ambulatory [facility] Start: 10-05-2023 End: 10-05-2023 Encounter for other preprocedural examination [facility] Start: 10-02-2023 End: 10-02-2023 Emergency department patient visit Lit Ledezma MD Work Phone: [facility] Emergency Medicine Comment on above: Fall, initial encoun ter (Primary Dx) Start: 09-21-2023 End: 09-21-2023 Office consultation new/estab patient 60 min Everett Haywood MD Work Phone: [facility] Comment on above: Tachycardia (Primary Dx); Preop testing Start: 09-21-2023 End: 09-21-2023 Patient encounter status Everett Haywood MD Work Phone: [facility] Work Phone: Start: 09-16-2023 End: 09-16-2023 Emergency department patient visit Dimas Lin MD Work Phone: [facility] Comment on above: Contusion of head, u nspecified part of head, initial encounter (Primary Dx); Fall, initial encounter; Contusion of right elbow, initial encounter; Abrasion of right elbow, initial encounter Start: 09-13-2023 End: 09-17-2023 ambulatory [facility] Start: 09-08-2023 End: 09-08-2023 Office outpatient visit 25 minutes Jeanie Ayala MD Work Phone: [facility] Comment on above: Fatty liver (Primary Dx); Anxiety; Stage 3a chronic kidney disease (CMS/HCC); Hyperglycemia; Abnormal EKG; Chest pain, unspecified type Start: 09-01-2023 End: 09-02-2023 ambulatory JEANIE Rubio [facility] Start: 09-01-2023 End: 09-02-2023 Encounter for other preprocedural examination [facility] Start: 09-01-2023 End: 09-01-2023 Patient encounter status [address] Work Phone: Start: 09-01-2023 End: 09-01-2023 Subsequent hospital visit by physician Krishna X-Ray 1 [facility] Comment on above: Preop testing Start: 09-01-2023 End: 09-01-2023 ambulatory MATTHEW PÉREZ [facility] Start: 08-25-2023 End: 08-25-2023 Emergency department patient visit Abhi Richards DO Work Phone: [facility] Emergency Medicine Comment on above: Fall, initial encoun ter (Primary Dx) Start: 08-23-2023 Telephone encounter Valentina rhodes MD Work Phone: [facility] Comment on above: Referral Start: 08-19-2023 Telephone encounter Valentina rhodes MD Work Phone: [facility] Comment on above: Advice Only (Clarifi cation on Order) Start: 08-19-2023 End: 08-19-2023 Office outpatient new 45 minutes Valentina Chopra MD Work Phone: [facility] Comment on above: 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) (Primary Dx); Tremor; Frequent falls Start: 08-17-2023 Patient encounter status Savi Richards DO Work Phone: [facility] Work Phone: Start: 08-17-2023 Encounter for other preprocedural examination [facility] Start: 08-17-2023 Encounter for other preprocedural examination [facility] Start: 08-16-2023 End: 08-16-2023 Office outpatient visit 25 minutes Matthew Pérez MD Work Phone: [facility] Comment on above: Pre-op exam (Primary Dx); Menorrhagia with irregular cycle; Screen for STD (sexually transmitted disease); Pelvic pain Start: 08-16-2023 End: 08-16-2023 Preprocedural examination done Matthew Pérez MD Work Phone: [facility] Work Phone: Start: 08-13-2023 End: 08-13-2023 Emergency department patient visit Lopez Milagro Gutierrez DO Work Phone: [facility] Comment on above: Primary hypertension (Primary Dx); Renal insufficiency Start: 08-11-2023 End: 08-11-2023 Office outpatient visit 25 minutes Jeanie Ayala MD Work Phone: [facility] Comment on above: Chronic systolic (co ngestive) heart failure (CMS/HCC) (Primary Dx); Anxiety; Depression, major, single episode, severe (CMS/HCC); Generalized epilepsy (CMS/HCC); Sedative, hypnotic or anxiolytic dependence with withdrawal, unspecified (CMS/HCC); Stage 3a chronic kidney disease (CMS/HCC); Fatty liver; Thrombocytopenia ([facility]/HCC) Start: 08-06-2023 End: 08-06-2023 ambulatory KINDRA Frausto [facility] Start: 08-01-2023 End: 08-02-2023 Emergency department patient visit JEANIE Rubio [facility] Start: 07-29-2023 End: 07-30-2023 ambulatory JEANIE Rubio [facility] Start: 07-24-2023 End: 07-25-2023 Emergency department patient visit Caren Gilman Work Phone: [facility] Emergency Medicine Comment on above: Anxiety (Primary Dx) ; Fall, initial encounter Start: 07-16-2023 End: 07-16-2023 Emergency department patient visit Caren Gilman [facility] Emergency 12 Start: 07-13-2023 End: 07-13-2023 Office outpatient visit 25 minutes Jeanie Ayala MD Work Phone: [facility] Comment on above: Vagina bleeding (Pau zeke Dx); Dysuria; Anxiety; Primary hypertension Start: 06-15-2023 Patient encounter procedure Reanna Kemp [facility] Rehab Start: 06-14-2023 End: 06-14-2023 Emergency department patient visit Larry Eugene [facility] Emergency 12 Start: 06-08-2023 ambulatory Jeanie Ayala Facil [id number] Start: 06-08-2023 Patient encounter procedure Jeanie Ayala Work Phone: [facility] Work Phone: Start: 06-04-2023 Patient encounter procedure Jeanie Ayala Work Phone: [facility] Work Phone: Start: 06-02-2023 End: 06-03-2023 ambulatory [facility] Start: 06-01-2023 Chart Update Jeanie hernandezaee Work Phone: [facility] Work Phone: Start: 05-28-2023 Patient encounter procedure Jeanie Puma Tavallaee Work Phone: [facility] Work Phone: Start: 05-28-2023 ambulatory Jeanie Tavallaee Facil [id number] Start: 05-21-2023 Patient encounter procedure Jeanie Puma Pimentelallaee Work Phone: [facility] Work Phone: Start: 05-21-2023 ambulatory Jeanie Tavallaee Facil [id number] Start: 05-19-2023 ambulatory Jeanie Tavallaee Facil [id number] Start: 05-19-2023 AQUATICFU4, Provider : Pippa Freeman, Status: Pen, Time: 11:30 AM Jeanie Puma Tavallaee Work Phone: [facility] Work Phone: Start: 05-14-2023 Patient encounter procedure Jeanie Puma Tavallaee Work Phone: [facility] Work Phone: Start: 05-14-2023 ambulatory Jeanie Tavallaee Facil [id number] Start: 05-07-2023 ambulatory Jeanie Tavallaee Facil [id number] Start: 05-07-2023 AQUATICFU4, Provider : Pippa Freeman, Status: Pen, Time: 10:00 AM Jeanie Puma Tavallaee Work [facility]: [facility] Work [facility]: Start: 05-05-2023 Patient encounter procedure Jeanie Puma Tavallaee Work Phone: [facility] Work Phone: Start: 05-04-2023 End: 05-04-2023 Office outpatient visit 15 minutes Jeanie Ayala MD Work Phone: [facility] Comment on above: Anxiety Start: 04-30-2023 FUV, Provider: Matthew Pérez, Status: Pen, Time: 10:45 AM Jeanie Ayala Work Phone: [facility] Work Phone: Start: 04-30-2023 Office outpatient vi sit 15 minutes Jeanie Ayala Work Phone: [address] Work Phone: Start: 04-30-[address] Jeanie Ayala Facility:[id number] Start: 04-28-2023 ambulatory Jeanie Ayala Facil ity:[id number] Start: 04-28-2023 PTRECHADUL, Provider : Trice Tejada, Status: Pen, Time: 11:45 AM Jeanie Ayala Work Phone: [facility] Work Phone: Start: 04-28-2023 AQUATICFU4, Provider : Pippa Freeman, Status: Pen, Time: 10:45 AM Jeanie Ayala Work Phone: [facility] Work Phone: Start: 04-28-2023 Patient encounter procedure Jeanie Ayala Work Phone: [facility] Work Phone: Start: 04-27-2023 OTEVALADUL, Provider : Naya Giles, Status: Pen, Time: 10:45 AM Jeanie Ayala Work [facility]: [facility] Work [facility]: Start: 04-27-2023 Patient encounter procedure Jeanie Puma Tavallaee [facility] Work Phone: Start: 04-27-2023 ambulatory Jeanie Tavallaee Facil [id number] Start: 04-26-2023 Patient encounter procedure Jeanie Puma Tav[place]ee Work Phone: [facility] Work [facility]: Start: 04-26-2023 ambulatory Jeanie Tavallaee Facil [id number] Start: 04-23-2023 Patient encounter procedure Jeanie Puma Tavallaee [facility]: [facility] Work Phone: Start: 04-23-2023 ambulatory Jeanie Tavallaee Facil ity:[id number] Start: 04-15-2023 ambulatory Jeanie Tavallaee Facil ity:[id number] Start: 04-14-2023 Patient encounter procedure Jeanie Puma Tavallaee Work Phone: [facility] Work Phone: Start: 04-09-2023 [place] [id number], Provider : Pippa Freeman, Status: Pen, Time: 10:00 AM Jeanie Puma Tavallaee Work Phone: [address] Work Phone: Start: 04-09-2023 Patient encounter procedure Jeanie Puma Tavallaee Work Phone: [facility] Work Phone: Start: 04-09-2023 ambulatory Jeanie Tavallaee Facil [id number] Start: 04-08-2023 Chart Update Jeanie Puma Tava llaee [facility]: [facility] Work Phone: Start: 04-07-2023 ambulatory Jeanie Tavallaee Facil [id number] Start: 04-07-2023 AQUATICFU4, Provider : Pippa Freeman, Status: Pen, Time: 10:00 AM Jeanie Rubio Tavallaee Work Phone: [facility] a[facility]uishou Work Phone: Start: 04-07-2023 Chart Update Jeanie Rubio Tava llaee Work Phone: [place] [address] [employer] Work Phone: Start: 04-05-2023 Office outpatient vi sit 25 minutes Jeanie Rubio Tavallaee Work Phone: [facility] aihuishou Work Phone: Start: 04-05-[address] Jeanie cabrera Tavallaedarrell Facility:[id number] Start: 04-02-2023 Patient encounter procedure Reanna Kemp [facility] Rehab Start: 04-02-2023 ambulatory Jeanie Tavallaee Facil ity:[id number] Start: 04-01-2023 End: 04-01-2023 Emergency department patient visit Caren Gilman [facility] Emergency 02 Start: 03-19-2023 ambulatory Jeanie Tavallaee Facil [id number] Start: 03-19-2023 Patient encounter procedure Jeanie Pimentelallaee Work Phone: [facility] Work Phone: Start: 03-10-2023 ambulatory Jeanie Tavallaee Facil ity:[id number] Start: 03-08-2023 ambulatory Jeanie Tavallaee Facil ity:[id number] Start: 03-03-2023 AQUATICFU4, Provider : Pippa Freeman, Status: Pen, Time: 10:00 AM Jeanie Rubio T[place]ee Work Phone: [facility] Work Phone: Start: 03-03-2023 Patient encounter procedure Jeanie Ayala Work Phone: [facility] Work Phone: Start: 03-03-2023 ambulatory Jeanie Tavallaee Facil ity:[id number] Start: 03-01-2023 Patient encounter procedure Jeanie Ayala Work Phone: [facility] Work Phone: Start: 03-01-2023 ambulatory Jeanie Tavallaee Facil ity:[id number] Start: 02-26-2023 ambulatory Jeanie Tavallaee Facil ity:[id number] Start: 02-26-2023 AQUATICFU4, Provider : Pippa Freeman, Status: Pen, Time: 10:45 AM Jeanie Ayala Work Phone: [facility] Mohinder 3 DO Work Phone: Start: 02-26-2023 Patient encounter procedure Jeanie Ayala Work Phone: [facility] Work Phone: Start: 02-25-2023 End: 02-25-2023 Office outpatient visit 25 minutes Jeanie Ayala MD Work Phone: [facility] Comment on above: Primary hypertension (Primary Dx); Sedative, hypnotic or anxiolytic dependence with withdrawal, unspecified (CMS/HCC); Depression, major, single episode, severe (CMS/HCC); Impacted cerumen of right ear Start: 02-24-2023 Office outpatient vi sit 10 minutes Jeanie Ayala Work Phone: [facility]qu[facility] Mohinder 3 DO Work Phone: Start: 02-24-[address] Jeanie Ayala Facility:[id number] Start: 02-20-2023 End: 02-20-2023 Emergency department patient visit Jeanie Goaee Facility:[id number] Start: 02-19-2023 Patient encounter procedure Jeanie Goaee Work Phone: [facility] Work Phone: Start: 02-19-2023 ambulatory Jeanie Tavallaee Facil ity:[id number] Start: 02-16-2023 Chart Update Jeanie Pimentela llaee Work Phone: [facility]ugbcfbn[facility] Mohinder 3 DO Work Phone: Start: 02-15-2023 ambulatory Jeanie Pimentelallaee Facil ity:[id number] Start: 02-15-2023 Patient encounter procedure Jeanie Goaee Work Phone: [facility] Work Phone: Start: 02-12-2023 Patient encounter procedure Jeanie Goaee Work Phone: [facility] Work Phone: Start: 02-12-2023 ambulatory Jeanie Tavallaee Facil ity:[id number] Start: 02-04-2023 ambulatory Jeanie Tavallaee Facil ity:[id number] Start: 02-01-2023 Patient encounter procedure Jeanie Goaee Work Phone: PR[facility]vughelyas[facility] Mohinder 3 DO Work Phone: Start: 01-29-2023 Patient encounter procedure Jeanie Goaee Work Phone: [facility] Work Phone: Start: 01-29-2023 ambulatory Jeanie Tavallaee Facil ity:[id number] Start: 01-27-[address] Jeanie Ayala Facility:[facility] Start: 01-26-2023 Office outpatient ne w 45 minutes Jeanie Ayala Work Phone: [facility] Mohinder 3 DO Work Phone: Start: 01-26-[address] Jeanie Ayala Facility:[id number] Start: 01-21-2023 End: 01-21-2023 Emergency department patient visit Larry Eugene [facility] Emergency 03 Start: 01-20-2023 Chart Update Jeanie armenta Work Phone: [facility]oped[facility] 300 Work Phone: Start: 01-19-2023 ambulatory Jeanie Ayala Facil ity:[id number] Start: 01-19-2023 Office outpatient vi sit 25 minutes Jeanie Ayala Work Phone: [facility] 300 Work Phone: Start: 01-19-[address] Jeanie Ayala Facility:[id number] Start: 01-15-2023 ambulatory Jeanie Ayala Facil ity:[id number] Start: 01-15-2023 Patient encounter procedure Jeanie Ayala Work Phone: [facility] Work Phone: Start: 01-12-2023 End: 01-12-2023 Office outpatient visit 25 minutes Sammie Iglesias MD Work Phone: [facility] Comment on above: COVID-19 (Primary Dx ); Cough in adult; Chest congestion; Otalgia of both ears; Acute cystitis with hematuria Start: 01-08-2023 End: 01-08-2023 Emergency department patient visit JEANIE AYALA [facility] Start: 01-08-2023 Patient encounter procedure Reanna Kemp [facility] Re[facility] Start: 01-07-2023 End: 01-08-2023 Emergency department patient visit Shilpa Douglas [facility] Emergency 03 Start: 01-07-2023 End: 01-07-2023 Emergency department patient visit Abhi Richards [facility] Emergency 11 Start: 01-04-2023 ambulatory Jeanie Tavallaee Facil ity:[id number] Start: 01-04-2023 Patient encounter procedure Jeanie M Tavallaee Work Phone: [facility] Work Phone: Start: 01-01-2023 End: 01-01-2023 Emergency department patient visit Lit Ledezma [facility] Emergency 01 Start: 12-30-2022 ambulatory Jeanie Tavallaee Facil ity:[id number] Start: 12-30-2022 AQUATICFU4, Provider : Pippa Freeman, Status: Pen, Time: 9:15 AM Jeanie M Tavallaee Work Phone: [facility] Work Phone: Start: 12-30-2022 Patient encounter procedure Jeanie M Tavallaee Work Phone: [facility] Work Phone: Start: 12-28-2022 ambulatory Jeanie Tavallaee Facil ity:[id number] Start: 12-28-2022 Patient encounter procedure Jeanie M Tavallaee [facility] Work Phone: Start: 12-25-2022 ambulatory Jeanie Tavallaee Facil ity:[id number] Start: 12-25-2022 AQUATICFU4, Provider : Pippa Freeman, Status: Pen, Time: 9:15 AM Jeanie M Tavallaee Work Phone: [facility] 300 Work Phone: Start: 12-25-2022 Patient encounter procedure Jeanie M Tavallaee Work Phone: [facility] Work Phone: Start: 12-24-2022 NEWPROB, Provider: Kellie Avery, Status: Pen, Time: 10:15 AM Jeanie Puma Tavallaee Work Phone: [facility] 300 Work Phone: Start: 12-24-2022 NPV, Provider: Jeison Clancy, Status: Pen, Time: 9:30 AM Jeanie M Tavallaee Work Phone: [facility] 300 Work Phone: Start: 12-23-2022 Office outpatient vi sit 15 minutes Jeanie Puma Pimnetelallaee Work Phone: [facility] 300 Work Phone: Start: 12-23-2022 ambulatory Jeanie Lorenallaee Facil ity:[id number] Start: 12-17-2022 Patient encounter procedure Jeanie Puma Pimentelallaee Work Phone: [facility] Work Phone: Start: 12-17-2022 ambulatory Jeanie Lorenallaee Facil ity:[id number] Start: 12-15-[address] Jeanie Ayala Facility:[id number] Start: 12-07-2022 End: 12-07-2022 Emergency department patient visit Andres Hussein [facility] Emergency 10 Start: 12-02-[address] Jeanie Ayala Facility:[id number] Start: 12-02-2022 Patient encounter procedure Jeanie M Tavallaee Work Phone: [facility] Work Phone: Start: 11-26-2022 End: 11-26-2022 Emergency department patient visit Caren Gilman [facility] Emergency 02 Start: 11-25-2022 FUV, Provider: Rayne Lin, Status: Pen, Time: 11:15 AM Jeanie Pimentelallaee Work Phone: [facility] Internal Medicine Work Phone: Start: 11-25-2022 Office outpatient vi sit 40 minutes Jeanie Pimentelallaee Work Phone: [facility]-[address] Work Phone: Start: 11-25-[address] Jeanie Ayala Facility:[id number] Start: 11-25-2022 ambulatory Jeanie Tavallaee Facil ity:[id number] Start: 11-23-2022 Office outpatient vi sit 15 minutes Jeanie Pimentelallaee Work Phone: [facility] Medicine Work Phone: Start: 11-23-[address] Jeanie Ayala Facility:[id number] Start: 11-20-2022 ambulatory Jeanie Tavallaee Facil ity:[id number] Start: 11-12-2022 HOLTER 48, Provider: ISLAM DIAGNOSTIC THERAPIST,[facility], Status: Pen, Time: 2:00 PM Jeanie Pimentelallaee Work Phone: [facility] Work Phone: Start: 11-12-2022 ECHO, Provider: MARCUS NEWMAN ECHO 1,[facility], Status: Pen, Time: 1:00 PM Jeanie Pimentelallaee Work Phone: [facility] Work Phone: Start: 11-12-2022 ambulatory Jeanie Tavallaee Facil ity:[id number] Start: 11-10-[address] Jeanie Ayala Facility:[id number] Start: 11-10-2022 Office outpatient vi sit 15 minutes Jeanie Pimentelallaee Work Phone: [facility] 300 Work Phone: Start: 11-06-2022 AUDIT Jeanie Pimentela llaee Work Phone: [address] Work Phone: Start: 11-05-2022 Office outpatient ne w 45 minutes Jeanie Pimentelallaee Work Phone: [address] Work Phone: Start: 11-05-[address] Jeanie Ayala Facility:[id number] Start: 10-31-2022 End: 11-01-2022 Emergency department patient visit Jeanie Ayala Facility:[id number] Start: 10-29-2022 AUDIT Jeanie armenta Work Phone: [facility] Medicine Work Phone: Start: 10-28-2022 Transcribe Orders Jeanie Ayala MD Work Phone: [facility] Comment on above: Migraine without sta tus migrainosus, not intractable, unspecified migraine type (Primary Dx) Start: 10-28-2022 AUDIT Jeanie hernandezaee Work Phone: [facility] Work Phone: Start: 09-16-2022 FUV, Provider: Reanna Kemp, Status: Pen, Time: 10:30 AM Jeanie Ayala Work Phone: [facility] Internal Medicine Work Phone: Start: 09-16-2022 Office outpatient vi sit 15 minutes Jeanie Pimentelallaee Work Phone: [facility] 300 Work Phone: Start: 09-16-2022 Patient encounter procedure Jeanieizaiah Goaee Work Phone: [facility] 300 Work Phone: Start: 09-16-[address] Jeanie Goaee Facility:[id number] Start: 09-15-2022 Office outpatient vi sit 25 minutes Jeanie Puma Tavallaee Work Phone: [facility] Internal Medicine Work Phone: Start: 09-15-[address] Jeanie Ayala Facility:[id number] Start: 08-29-2022 Chart Update Jeanie Pimentela llaee Work Phone: [facility] Work Phone: Start: 08-24-2022 Chart Update Jeanie Rubio Tava llaee Work Phone: [facility] Medicine Work Phone: Start: 08-24-2022 End: 08-24-2022 [facility] Start: 08-19-2022 FUV, Provider: Reanna Kemp, Status: Pen, Time: 10:30 AM Jeanie M Tavallaee Work Phone: [facility] Work Phone: Start: 08-19-2022 Office outpatient vi sit 15 minutes Jeanie M Tavallaee Work Phone: [facility] 300 Work Phone: Start: 08-18-2022 Office outpatient vi sit 25 minutes Jeanie M Tavallaee Work Phone: [facility] Work Phone: Start: 08-06-2022 ambulatory Jeanie Tavallaee Facil ity:[id number] Start: 07-21-2022 Office outpatient vi sit 25 minutes Ejanie M Tavallaee Work Phone: [facility] Work Phone: Start: 07-15-2022 NPV, Provider: Reanna Kemp, Status: Pen, Time: 1:00 PM Jeanie M Tavallaee Work Phone: [facility] Work Phone: Start: 07-15-2022 Office outpatient ne w 45 minutes Jeanie Puma Tavallaee Work Phone: [facility] 300 Work Phone: Start: 07-15-2022 Patient encounter procedure Jeanie Puma Tavallaee Work Phone: [facility] 300 Work Phone: [...] End: 05-10-2022 Emergency department patient visit Dinesh Chnu [facility] Emergency 01 Start: 05-06-2022 End: 05-06-2022 Emergency department patient visit CAREN AL [facility] Start: 05-05-2022 Office outpatient vi sit 15 minutes Jeanie Puma Tavallaee Work Phone: [facility] Work Phone: Start: 03-06-2022 Chart Update Jeanie Rubio Tava llaee Work Phone: [address] Work Phone: Start: 03-04-2022 Office outpatient vi sit 25 minutes Jeanie Puma Tavallaee Work Phone: [facility] Work Phone: Start: 01-30-2022 Patient encounter procedure Jeanie Puma Tavallaee Work Phone: [facility] Work Phone: Start: 01-29-2022 Chart Update Jeanie M Tava llaee Work Phone: [facility] Work Phone: Start: 01-22-2022 Chart Update Jeanie M Tava llaee Work Phone: [facility] Work Phone: Start: 01-07-2022 Office outpatient vi sit 25 minutes Jeanie M Tavallaee Work Phone: [facility] Work Phone: Start: 12-30-2021 Chart [...] Start: 12-15-2021 Patient encounter procedure Jeanieizaiah Pimentelallaee [facility] Diagnostic Start: 12-13-2021 End: 12-13-2021 Emergency department patient visit Tenisha Lane [facility] Emergency 02 Start: 12-08-2021 Office outpatient vi sit 25 minutes Jeanie Puma Tavallaee Work Phone: [facility] Work Phone: Start: 12-05-2021 End: 12-05-2021 Emergency department patient visit Lopez Gutierrez [facility] Emergency 09 Start: 12-03-2021 Office outpatient vi sit 25 minutes Jeanie M Tavallaee Work Phone: [facility] Work Phone: Start: 11-27-2021 End: 11-28-2021 Emergency department patient visit Larry Eugene [facility] Emergency 15 Start: 11-04-2021 Office outpatient vi sit 25 minutes Jeanie M Tavallaee Work Phone: [facility] Work Phone: Start: 10-30-2021 Chart Update Jeanie M Tava llaee Work Phone: [facility] Work Phone: Start: 10-29-2021 Chart Update Jeanie M Tava llaee Work Phone: [facility] Work Phone: Start: 08-12-2021 Office outpatient vi sit 25 minutes Jeanie M Tavallaee Work Phone: [facility] Work Phone: Start: 08-12-2021 Patient encounter procedure Jeanie M Tavallaee Work Phone: [facility] Work Phone: Start: 08-06-2021 Chart Update Jeanie M Tava llaee Work Phone: [facility] Work Phone: Start: 07-18-2021 Transcribe Orders Julian Galeana MD Work Phone: [facility] Comment on above: Fracture of bone of nasal sinus (HCC) (Primary Dx) Start: 07-17-2021 Office outpatient vi sit 25 minutes Jeanie M Tavallaee Work Phone: [facility] Work Phone: Start: 07-14-2021 Office outpatient vi sit 10 minutes Jeanie M Tavallaee Work Phone: [facility] a[employer]uishou Work Phone: Start: 07-10-2021 End: 07-10-2021 Emergency department patient visit Larrycari Eugene [facility] Emergency 10 Start: 07-09-2021 Chart Update Jeanie Pimentela llaee Work Phone: [facility] [employer] Work Phone: Start: 07-07-2021 Chart Update Jeanie M Tava llaee Work Phone: [facility] [employer] Work Phone: Start: 06-24-2021 Office outpatient vi sit 15 minutes Jeanie Pimentelallaee Work Phone: [facility] Work Phone: Start: 05-27-2021 End: 05-27-2021 Emergency department patient visit Franco Heaton [facility] Start: 05-19-2021 RONNIEJOHAN, Provider: Kindra Bruce, Status: Pen, Time: 1:00 PM Jeanie Pimentelallaee Work Phone: [facility] Work Phone: Start: 05-19-2021 Office outpatient vi sit 25 minutes Jeanie Pimentelallaee Work Phone: [facility] Work Phone: Start: 05-19-2021 AUDIT Jeanie M Tava llaee Work Phone: [facility] Work Phone: Start: 05-18-2021 End: 05-18-2021 Emergency department patient visit Lit Ledezma [facility] Emergency 01 Start: 05-15-2021 End: 05-15-2021 Emergency department patient visit Shilpa Douglas [facility] Emergency 08 Start: 05-14-2021 End: 05-14-2021 Emergency department patient visit Tenisha Lane [facility] Emergency 13 Start: 04-23-2021 Chart Update Jeanie armenta Work Phone: [facility] Work Phone: Start: 04-08-2021 FUV, Provider: Jeanie Ayala, Status: Pen, Time: 11:45 AM Jeanie Ayala Work Phone: [place] [phone] [employer] Work Phone: Start: 04-08-2021 Patient encounter procedure Jeanie Ayala Work Phone: [facility] Work Phone: Start: 04-07-2021 Office outpatient vi sit 10 minutes Jeanie Ayala Work Phone: [facility] [employer] Work Phone: Start: 12-25-2020 Patient encounter procedure Jeanie Ayala [facility] Work Phone: Start: 12-18-2020 End: 12-18-2020 Office outpatient new 45 minutes Julian Galeana Work Phone: [facility] Comment on above: Fracture of nasal vandana corey, subsequent encounter for fracture with routine healing (Primary Dx); Mucous retention cyst of maxillary sinus Start: 12-05-2020 End: 12-05-2020 Orders Only Chance Antonio Work Phone: [facility] Start: 12-01-2020 End: 12-03-2020 Emergency department patient visit Christiano Olivares Work Phone: [facility] Intermediate Comment on above: Seizures (HCC) (Prim [...] Start: 11-26-2020 Patient encounter procedure Jeanie Ayala -[facility] Work Phone: Start: 06-18-2020 Patient encounter procedure Urban Purdy RB-Amnvzczqm-Ygxguqht [facility] Work Phone: Start: 03-14-2020 Patient encounter procedure Urban Purdy TW-Qavcnjibu-Lawtnsss [facility] Work Phone: Start: 10-30-2019 Patient encounter procedure Urban Purdy IT-Yzjcrhkpa-Kfvsvdyq [facility] Work Phone: Start: 09-25-2019 Patient encounter procedure Anel Velasquez [facility] [address] [employer] Work Phone: Start: 08-07-2019 Patient encounter procedure Anel Velasquez 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 (ED visit 03/18/19); Tremors (anxiety induced) Start: 03-17-2019 End: 03-17-2019 Patient encounter procedure Jemma Figueroa [facility] Comment on above: Transition Of Care ( INitial outreach) Start: 03-16-2019 End: 03-16-2019 Evaluation and management of inpatient Karin Richards Work Phone: [facility] EEG Comment on above: Arrived Start: 03-16-2019 End: 03-16-2019 Emergency department patient visit Generic [facility] Work Phone: [facility] Medical Observation Start: 03-08-2019 End: 03-12-2019 Office outpatient visit 15 minutes Nedra Brewer Work Phone: [facility] Comment on above: Valproic acid toxici ty, accidental or unintentional, subsequent encounter (Primary Dx); Hypokalemia; Thrombocytopenia (HCC) Start: 03-01-2019 End: 03-05-2019 Transitional care manage srvc 14 day discharge Nedra Brewer Work Phone: [facility] Comment on above: Valproic acid toxici ty, accidental or unintentional, subsequent encounter; Essential hypertension Start: 02-28-2019 End: 02-28-2019 Patient Outreach Jemma Reyna [facility] Comment on above: Transition Of Care Start: 12-26-2018 End: 12-26-2018 Patient encounter procedure Zeke Onofre Work Phone: [facility] Comment on above: Arrived Chest pain at rest Start: 12-26-2018 End: 12-26-2018 Subsequent hospital visit by physician Zeke Onofre Work Phone: [facility] Comment on above: Arrived Start: 12-08-2018 Patient encounter procedure Zeke Onofre Facility:[place] Start: 11-22-2018 End: 11-22-2018 Office outpatient visit 25 minutes Dimas Brooke Work Phone: [facility] Comment on above: Essential hypertensi on; Chronic kidney disease, stage III (moderate) (HCC); Viral URI Start: 11-22-2018 Patient encounter procedure Zeke Onofre Facility:[place] Start: 11-22-2018 End: 11-22-2018 Patient encounter procedure Zeke Onofre Work Phone: [facility] Start: 11-22-2018 End: 11-22-2018 Office consultation new/estab patient 60 min Zeke Krishnan [place] Work Phone: [facility] Comment on above: Chest pain at rest; Essential hypertension; Chronic kidney disease, stage III (moderate) (HCC) Start: 10-24-2018 End: 10-24-2018 Patient encounter procedure Kindra M Kenyon [facility] Comment on above: PRIOR AUTHORIZATION (CARDURA) Start: 10-12-2018 End: 10-12-2018 Office outpatient visit 25 minutes Nedra Brewer Work Phone: [facility] Comment on above: Chest pain at rest ( Primary Dx); Essential hypertension; Chronic kidney disease, stage III (moderate) (HCC) Start: 09-01-2018 Refill Dimas desai MD Work Phone: [facility] Start: 07-08-2018 End: 07-08-2018 Patient encounter Jemma Figueroa [facility] Comment on above: Chronic Care Managem ent (follow up) Start: 06-16-2018 Patient encounter procedure Dimas Brooke Facility:[place] Start: 06-16-2018 End: 06-16-2018 Office outpatient visit 25 minutes Dimas Brooke Work Phone: [facility] Comment on above: History of UTI (Prim xaiver Dx); Gastroesophageal reflux disease, esophagitis presence not specified; Essential hypertension; Obesity, Class I, BMI 30.0-34.9 (see actual BMI) Start: 06-15-2018 Patient encounter Jemma Figueroa [facility] Start: 06-10-2018 Patient encounter Jemma Figueroa [facility] Start: 06-06-2018 Patient encounter Jemma Figueroa [facility] Start: 06-03-2018 Patient encounter Jemma Figueroa [facility] Start: 05-19-2018 End: 05-19-2018 Office outpatient visit 15 minutes Dimas Brooke Work Phone: [facility] Start: 05-13-2018 End: 05-14-2018 Emergency department patient visit SUMMER HALEY Facility: Start: 05-03-2018 End: 05-03-2018 Office outpatient visit 25 minutes Dimas Brooke Work Phone: [facility] Start: 04-22-2018 Emergency department patient visit Facility:[facility] Start: 03-15-2018 End: 03-15-2018 Emergency department patient visit Bobby Zavala Facility:[place] Start: 01-04-2018 End: 01-04-2018 Office/outpatient visit, est, level 4 Dimas Brooke Work Phone: [facility] Start: 01-02-2018 End: 01-02-2018 Emergency department patient visit Leigh Ann Ayala Facility:[place] Start: 09-15-2017 End: 09-16-2017 [facility] Start: 08-12-2017 Ambulatory [facility] Facility: [facility] Start: 08-06-2017 ERRONEOUS ENCOUNTER-DISREGARD Dimas Brooke Work Phone: [facility] Start: 07-15-2017 Postop follow-up visit Williams Lobo Work Phone: [facility] Start: 07-06-2017 End: 07-06-2017 Patient encounter procedure Dimas Brooke Work Phone: [facility] Comment on above: ERRONEOUS ENCOUNTER- -DISREGARD (Primary Dx) Start: 06-28-2017 Postop follow-up visit Williams Lobo Work Phone: [facility] Start: 01-05-2017 Ambulatory Rishabh Mcdonough [facility] Cancer cervix - scre ening done Jeanie Ayala Work Phone: [address] Work Phone: Comment on above: 01/29/2021;NIL, HPV N EG09/30/17; NIL; Encounter for gynecological examination (general) (routine) without abnormal findings Jeanie Ayala Work Phone: [facility] Work Phone: Comment on above: 01/29/2021;NIL, HPV N EG09/30/17; NIL; 01/29/2021; COTEST NE 09/30/17; NIL; Menarche Jeanie Go aee Work Phone: [place] [phone] [employer] Work Phone: Patient encounter procedure Jeanie Rubio Lorenvenkat Work Phone: [place] [phone] [employer] Work Phone: Procedures Date Procedure Procedure Detail [...] examinati on foot 2 views Mee Perez [employer] Work Phone: Start: 03-14-2025 End: 03-14-2025 Comprehensive metabolic panel Srinivasa mullen MD Work Phone: Start: 03-13-2025 Comprehensive metabolic panel Srinivasa Luevano MD Work Phone: Start: 03-13-2025 Thyrotropin [Units/v olume] in Serum or Plasma Sohail Hernandez MD PhD Work Phone: Start: 06-06-2024 Renal function panel Kalen Blanca [employer] Work Phone: Start: 06-05-2024 End: 06-05-2024 Laparoscopic [...] 12-31-2023 Ct angiography chest w/contrast/noncontrast Kindra Lopez [facility] Work Phone: Start: 12-31-2023 Ecg routine ecg w/le ast 12 lds w/i&r Kindra Lopez [facility] Work Phone: Start: 12-31-2023 Radiologic exam ches t single view Kindra Lopez [facility] Work Phone: Start: 12-31-2023 Comprehensive metabolic panel Kindra Lopez [employer] Work Phone: Start: 12-31-2023 MANCILLA TOP Moe [...] metabolic 2000 panel - Serum or Plasma JEANIE TAVALLAEE Start: 08-02-2023 CBC W Auto Different [...] for Adults (1 - 1-dose 75+ series) [facility] Start: 09-16-2033 DTaP/Tdap/Td Vaccines (4 - Td or Tdap) DTaP/Tdap/Td Vaccines (4 - Td or Tdap) [facility] Start: 09-16-2033 Tetanus vaccination [facility] Start: 2033 RSV Immunization aged 60 or older (1 - 1-dose 60+ series) RSV Immunization aged 60 or older (1 - 1-dose 60+ series) [facility] Start: 03-05-2030 DTaP/Tdap/Td Vaccines (3 - Td or Tdap) DTaP/Tdap/Td Vaccines (3 - Td or Tdap) [facility] Start: 03-05-2030 Tetanus vaccination Tetanus: Every 10yrs [facility] Start: 06-02-2028 Lipid panel Lipid Panel [facility] Start: 08-05-2026 Lipid panel Lipid Panel [facility] Start: 03-15-2026 Creatinine measurement Creatinine Level [facility] Start: 03-15-2026 Potassium measurement Potassium Level [facility] Start: 03-13-2026 Thyroid stimulating hormone measurement TSH Level [facility] Start: 08-22-2025 Depression Monitoring Depression Monitoring [facility] Start: 07-27-2025 End: 07-27-2025 Patient encounter procedure 07/27/2025 2:20 PM EDT Office Visit [facility] [address] [place] [phone] Valentina Chopra MD [address] [place] [address] [facility] Neuroscience [facility] Start: 06-18-2025 Influenza vaccination Influenza Vaccine (Season Ended) [facility] Start: 06-07-2025 Depression Monitoring Depression Monitoring [facility] Start: 06-06-2025 Creatinine measurement Creatinine Level [facility] Start: 06-06-2025 Potassium measurement Potassium Level [facility] Start: 05-07-2025 End: 05-07-2025 Patient encounter procedure 05/07/2025 3:00 PM EDT Office Visit [facility] Neurology [facility] [address] [place] [address] [address] [place] [id number] Sohail Hernandez MD PhD [address] [place] [address] [facility] Neurology [facility] Start: 04-27-2025 Screening for malignant neoplasm of breast Mammogram [facility] Start: 04-25-2025 End: 04-25-2025 Patient encounter procedure [facility] Start: 04-20-2025 Yearly Adult Physical Yearly Adult Physical [facility] Start: 04-19-2025 History and physical examination, annual for health maintenance Wellness Visit [facility] Start: 04-04-2025 [facility] Start: 04-04-2025 Consultation [facility] Start: 04-04-2025 Referral to service [facility] Start: 03-21-2025 [facility] Start: 03-05-2025 Diabetes mellitus screening Diabetes Screening [facility] Start: 03-05-2025 Thyroid stimulating hormone measurement TSH Level [facility] Start: 03-04-2025 Urine screening for protein Urine Microalbumin [facility] Start: 02-19-2025 End: 02-19-2026 EEG FIVE PIECE EXPANSION MAKER HAND MONITORING 2 - 3 DAY EVAL EEG PENITENTIARY MONITORING 2 - 3 DAY EVAL Neurology Routine Focal epilepsy with impairment of consciousness, intractable (HCC) Expected: 02/19/2025 (Approximate), Expires: 02/19/2026 [facility] System Work Phone: Comment on above: Expected: 02/19/2025 (Approximate), Expi res: 02/19/2026 Start: 02-19-2025 End: 02-19-2025 Patient encounter procedure 02/19/2025 1:00 PM EDT Office Visit [facility] [address] [place] [id number] Sohail Hernandez MD PhD [address] [facility] [place] [address] [facility] Start: 01-25-2025 End: 01-25-2025 Patient encounter procedure 01/25/2025 2:20 PM EDT Office Visit [facility] [address] [place] [phone] Valentina Chopra MD [address] [place] [address] [facility] Start: 01-25-2025 End: 01-25-2026 Hepatic function 2000 panel - Serum or Plasma Hepatic function panel Lab Routine 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, intractable (HCC) Dizziness Expected: 01/25/2025 (Approximate), Expires: 01/25/2026 [facility] [employer] Comment on above: Expected: 01/25/2025 (Approximate), Expi res: 01/25/2026 Start: 01-25-2025 End: 01-25-2026 LEVETIRACETAM LEVEL LEVETIRACETAM LEVEL Lab Rout ine 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, intractable (HCC) Dizziness Expected: 01/25/2025 (Approximate), Expires: 01/25/2026 [facility] [employer] Comment on above: Expected: 01/25/2025 (Approximate), Expi res: 01/25/2026 Start: 01-25-2025 End: 01-25-2026 Valproic acid level, total Valproic acid level, total Lab Routine 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, intractable (HCC) Dizziness Expected: 01/25/2025 (Approximate), [facility]: Comment on above: Expected: 01/25/2025 (Approximate), Expi res: 01/25/2026 Start: 12-31-2024 Thyroid stimulating hormone measurement TSH Level [facility] [employer] Start: 12-08-2024 End: 12-08-2025 EEG FIVE PIECE EXPANSION MAKER HAND MONITORING 2 - 3 DAY EVAL EEG PENITENTIARY MONITORING 2 - 3 DAY EVAL Neurology Routine Focal epilepsy with impairment of consciousness, intractable (HCC) Expected: 12/08/2024 (Approximate), Expires: 12/08/2025 [employer] Work Phone: Comment on above: Expected: 12/08/2024 (Approximate), Expi res: 12/08/2025 Start: 10-26-2024 End: 10-26-2025 EEG FIVE PIECE EXPANSION MAKER HAND MONITORING 2 - 3 DAY EVAL EEG PENITENTIARY MONITORING 2 - 3 DAY EVAL Neurology Routine Focal epilepsy with impairment of consciousness, intractable (HCC) Expected: 10/26/2024 (Approximate), Expires: 10/26/2025 [facility] [employer] Work Phone: Comment on above: Expected: 10/26/2024 (Approximate), Expi res: 10/26/2025 Start: 10-26-2024 End: 10-26-2024 Patient encounter procedure 10/26/2024 12:40 PM EST Office Visit [facility] [address] [place] [phone] Valentina Chopra MD [address] [place] [address] [facility] Start: 10-26-2024 End: 10-26-2024 Patient encounter procedure 10/26/2024 11:30 AM EST Office Visit [address] [place] [phone] Soahil Hernandez MD [address] [place] [address] [facility] Start: 09-01-2024 Creatinine measurement Creatinine Level [facility] Start: 09-01-2024 Diabetes mellitus screening Diabetes Screening [facility] Start: 09-01-2024 Potassium measurement Potassium Level [facility] Start: 08-30-2024 End: 08-30-2024 Patient encounter procedure [facility] Start: 08-13-2024 Creatinine measurement Creatinine Level [facility] Start: 08-13-2024 Potassium measurement Potassium Level [facility] Start: 08-11-2024 End: 08-11-2024 Patient encounter procedure 08/11/2024 3:00 PM EDT Office Visit [facility] [address] [place] [phone] Sohail Hernandez MD PhD [facility] [employer] [facility] [address] [place], [place] [phone] [facility] Start: 08-01-2024 Creatinine measurement Creatinine Level [facility] Start: 08-01-2024 Potassium measurement Potassium Level [facility] Start: 07-18-2024 End: 07-18-2024 Patient encounter procedure [facility] Start: 07-07-2024 End: 07-07-2025 EEG PENITENTIARY MONITORING 2 - 3 DAY EVAL EEG PENITENTIARY MONITORING 2 - 3 DAY EVAL Neurology Routine 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) Expected: 07/07/2024 (Approximate), Expires: 07/07/2025 [facility] Work Phone: Comment on above: Expected: 07/07/2024 (Approximate), Expi res: 07/07/2025 Start: 07-07-2024 End: 07-07-2024 Patient encounter procedure 07/07/2024 11:30 AM EDT Office Visit [facility] [address] [place] [phone] Sohail Hernandez MD PhD [address] [place], [place] [address] [address] [place] [address] [facility] Start: 07-04-2024 End: 07-04-2024 Patient encounter procedure 07/04/2024 11:30 AM EDT Office Visit [address] [phone] Mejia Cullen MD [address] [place] [phone] [facility] Start: 06-18-2024 COVID-19 Vaccine ( season) COVID-19 Vaccine ( season) [facility] Start: 06-18-2024 COVID-19 Vaccine ( season) COVID-19 Vaccine ( season) [facility] Start: 06-18-2024 Influenza vaccination [facility] Start: 06-16-2024 End: 06-16-2024 Follow-up encounter 06/16/2024 2:15 PM EDT Follow-Up [facility] [address] [facility], [address]th [place] [address] Raúl Hudson MD [address] [place] [address] 5th [place] [address] [facility] Start: 06-13-2024 Creatinine measurement Creatinine Level [facility] Start: 06-13-2024 Potassium measurement Potassium Level [facility] Start: 06-02-2024 Diabetes mellitus screening Diabetes Screening [facility] Start: 06-02-2024 Thyroid stimulating hormone measurement TSH Level [facility] Start: 04-27-2024 End: 04-27-2024 Patient encounter procedure 04/27/2024 2:30 PM EDT Appointment [address] [phone] [facility] Start: 04-17-2024 End: 04-17-2024 Patient encounter procedure 04/17/2024 9:00 AM EDT Office Visit [facility] [address] [facility] [address] [place] [phone] Valentina Chopra MD [address] [facility] [address] [place] [address] [facility] Start: 04-04-2024 End: 04-04-2024 Patient encounter procedure 04/04/2024 11:30 AM EDT Office Visit [facility] [address] [place] [phone] Mejia Cullen MD [address] [place] [address] [facility] Start: 04-01-2024 Creatinine measurement Creatinine Level [facility] Start: 04-01-2024 Potassium measurement Potassium Level [facility] Start: 04-01-2024 Thyroid stimulating hormone measurement TSH Level [facility] Start: 02-21-2024 Creatinine measurement Creatinine Level [facility] Start: 02-21-2024 Potassium measurement Potassium Level [facility] Start: 02-17-2024 Urine screening for protein CKD: Urine Protein Screening [facility] Start: 02-01-2024 End: 02-01-2024 Patient encounter procedure 02/01/2024 10:30 AM EDT Office Visit [facility] Medical Office Building Jose Alberto [address] [place] [address] Kindra Downing, MODEL SET ARTIST-BRANCH RETAIL EXECUTIVE [address] [place] [address] [facility] Medical Office [facility] Start: 01-30-2024 Screening for malignant neoplasm of cervix [facility] Start: 01-08-2024 Creatinine measurement Creatinine Level [facility] Start: 01-08-2024 Potassium measurement Potassium Level [facility] Start: 01-03-2024 End: 01-02-2025 XR Shoulder - right 2 Views XR shoulder 2+ views right Imaging Routine Chronic right shoulder pain Expected: 01/03/2024, Expires: 01/02/2025 [facility] Work Phone: Comment on above: Expected: 01/03/2024, Expires: Start: 01-03-2024 End: 01-03-2024 Patient encounter procedure 01/03/2024 1:00 PM EDT Office Visit [address] [phone] Mejia Cullen MD [address] [place] [address] [phone] [facility] Start: 12-24-2023 End: 12-24-2023 Patient encounter procedure 12/24/2023 10:00 AM EST Office Visit [address] [phone] Mejia Cullen MD [address] [place] [address] [phone] [facility] Start: 12-13-2023 End: 12-13-2023 Patient encounter procedure 12/13/2023 11:15 AM EST Office Visit [facility] [address] [place] [phone] Jeanie Ayala MD [address] [place] [address] [facility] Start: 11-26-2023 Thyroid stimulating hormone measurement TSH Level [facility] Start: 11-23-2023 End: 11-23-2023 Patient encounter procedure 11/23/2023 1:30 PM EST Office Visit [place] [address] [place] [phone] Jeffrey Kumar MD [address] [facility] [address] [place] [address] [facility] Start: 11-12-2023 Echocardiography Echocardiogram [facility] Start: 11-10-2023 End: 11-10-2023 Patient encounter procedure 11/10/2023 10:30 AM EST Office Visit [facility] Medical Office Building [address] [place] [phone] Valentina Munoz MD [address] [place], [place] [address] [facility], [address] [place] [address] [facility] Medical Office [facility] Start: 11-08-2023 End: 11-08-2023 Patient encounter procedure 11/08/2023 10:45 AM EST Office Visit [facility] [address] [place] [phone] Jeanie Ayala MD [address] [place] [address] [facility] Start: 10-29-2023 End: 10-29-2023 Patient encounter procedure 10/29/2023 10:45 AM EST Office Visit [facility] Medical Office Building [facility] [address] [place] [phone] Matthew Pérez MD [address] [place], [place] [address] [facility], [facility] 2 [place] [address] [facility] Medical Office Building Start: 10-14-2023 End: 10-14-2023 Admission to same day surgery center 10/14/2023 7:30 AM EST - 10/14/2023 9:20 AM EST [place] [facility] [place] [place] [address] [place] [phone] Matthew Pérez MD [address] [place], [place] [address] [place] [facility], [facility] 2 [place], [place] [phone] Exploration Laparoscopy [04930 (CPT )] [facility] [place] Comment on above: Exploration Laparoscopy [36005 (CPT )] Start: 10-14-2023 End: 10-14-2023 Insertion [...] physician 10/14/2023 6:00 AM EST Hospital Encounter [facility] [place] [address] [place] [address] Matthew Pérez MD [address] [facility] Medical Office, [address] [place] [address] [facility] [place] Start: 10-05-2023 End: 10-05-2023 Patient encounter procedure [facility] Start: 09-28-2023 End: 09-28-2023 Patient encounter procedure 09/28/2023 11:20 AM EST Office Visit [facility] [address] [place] [phone] Satya Faith MD [address] [place] [address] [facility] Start: 09-24-2023 End: 09-24-2023 Patient encounter procedure 09/24/2023 10:30 AM EST Office Visit [facility] Medical Office Building [address] [place] [address] Matthew Pérez MD [address] [facility] Medical Office, [address] [place] [address] [facility] Building Start: 09-21-2023 End: 09-21-2024 Holter monitor study Holter Or Event Cardiac Lesli tor Cardiac Services Routine Preop testing Tachycardia Expected: 09/21/2023, Expires: 09/21/2024 [facility] Work Phone: Comment on above: Expected: 09/21/2023, Expires: Start: 09-21-2023 End: 09-21-2025 US Heart Transthoracic Transthoracic Echo (TTE) Complete Echocardiography Routine Preop testing Tachycardia Expected: 09/21/2023 (Approximate), Expires: 09/21/2025 [facility] Service Area Work Phone: Comment on above: Expected: 09/21/2023 (Approximate), Expi res: 09/21/2025 Start: 09-21-2023 End: 09-21-2023 Patient encounter procedure 09/21/2023 1:30 PM EST Office Visit [facility] Medical Office Building [address] [place] [phone] Everett Walton MD [address] [facility], [address] [place] [address] [facility] Office Building Start: 09-16-2023 End: 09-16-2023 Admission to same day surgery center 09/16/2023 10:30 AM EST - 09/16/2023 12:20 PM EST [place] [facility] [place] [place] [address] [place] [phone] Matthew Pérez MD [address] [facility] [address] [place] [address] Exploration Laparoscopy [29477 (CPT )] [facility] [place] Comment on above: Exploration Laparoscopy [24646 (CPT )] Start: 09-16-2023 End: 09-16-2023 Insertion intrauterine device iud Insertion Device Uterus Pelvic pain Irregular bleeding Preop testing 09/16/2023 10:30 AM EST Virtual [facility] Start: 09-16-2023 End: 09-16-2023 Laps abd prtm&omentum dx w/wo spec br/wa spx Exploration Laparoscopy Pelvic pain Irregular bleeding Preop testing 09/16/2023 10:30 AM EST Virtual [facility] Start: 09-16-2023 Subsequent hospital visit by physician 09/16/2023 9:00 AM EST Hospital Encounter [facility] [place] [address] [place] [phone] Matthew Pérez MD [address] [place] [address] Medical Office, [address] [place] [phone] [facility] [place] Start: 2023 Administration of herpes zoster vaccine Zoster Vaccines (1 of 2) [facility] Start: 2023 Screening for malignant neoplasm of colon Flexible sigmoidoscopy [facility] Start: 2023 Zoster vaccine hzv live for subcutaneous use ZOSTER (SHINGLES) VACCINE (1 of 2) [facility] Start: 2023 Zoster Vaccines (1 of 2) Zoster Vaccines (1 of 2) [facility] Start: 09-08-2023 End: 09-08-2025 NM Heart Perfusion W stress and W radionuclide IV Nuclear Stress Test Cardiac Nuclear Medicine Routine Abnormal EKG Chest pain, unspecified type Expected: 09/08/2023 (Approximate), Expires: 09/08/2025 [facility] Service Area Work Phone: Comment on above: Expected: 09/08/2023 (Approximate), Expi res: 09/08/2025 Start: 09-08-2023 End: 09-08-2023 Patient encounter procedure 09/08/2023 11:15 AM EST Office Visit [facility] [address] [place] [phone] Jeanie Ayala MD [address] [place] [address] [facility] Start: 09-02-2023 End: 08-19-2024 Valproic acid level, total Valproic acid level, total Lab Routine 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) Expected: 09/02/2023 (Approximate), Expires: 08/19/2024 [facility] Comment on above: Expected: 09/02/2023 (Approximate), Expi res: 08/19/2024 Start: 08-31-2023 End: 08-31-2023 Patient encounter procedure 08/31/2023 10:00 AM EST Office Visit [facility] [address] [place] [phone] Jeanie Ayala MD [address] [place] [place] [address] [facility] Start: 08-19-2023 End: 08-19-2024 Levetiracetam level Levetiracetam level Lab Rout ine 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) Expected: 08/19/2023 (Approximate), Expires: 08/19/2024 [facility] System Work Phone: Comment on above: Expected: 08/19/2023 (Approximate), Expi res: 08/19/2024 Start: 08-18-2023 End: 08-18-2023 Patient encounter procedure 08/18/2023 2:00 PM EDT Office Visit [facility] [address] [place] [phone] Jeanie Ayala MD [address] [place] [place] [address] [facility] Start: 08-16-2023 End: 08-23-2023 Bacteria identified in Urine by Culture Urine culture Microbiology Routine Pelvic pain Expected: 08/16/2023 (Approximate), Expires: 08/23/2023 [facility] Work Phone: Comment on above: Expected: 08/16/2023 (Approximate), Expi res: 08/23/2023 Start: 08-16-2023 End: 08-16-2024 Chlamydia trachomatis and Neisseria gonorrhoeae DNA [Identifier] in Unspecified specimen by CHIARA with probe detection C. Trachomatis / N. Gonorrhoeae, Amplified Detection Lab Routine Screen for STD (sexually transmitted disease) Pelvic pain Expected: 08/16/2023 (Approximate), Expires: 08/16/2024 [facility] Service Area Work Phone: Comment on above: Expected: 08/16/2023 (Approximate), Expi res: 08/16/2024 Start: 08-16-2023 End: 08-16-2023 Patient encounter procedure 08/16/2023 10:30 AM EDT Procedure Visit [facility] Medical Office Building [address] [place] [phone] Matthew Pérez MD [address] [facility] Medical Office, [facility] 2 [place], [place] [phone] [facility] Building Start: 08-11-2023 End: 08-11-2023 Patient encounter procedure 08/11/2023 9:45 AM EDT Office Visit [facility] [address] [place] [phone] Jeanie Ayala MD [address] [place] [address] [facility] Start: 08-06-2023 End: 08-06-2023 Patient encounter procedure [facility] Start: 06-18-2023 COVID-19 Vaccine ( season) COVID-19 Vaccine ( season) [facility] Start: 06-18-2023 Influenza vaccination [facility] Start: 06-17-2023 OTRECHEADT, Provider: Naya Giles, Status: Pen, Time: 10:30 AM OTRECHEADT, Provider: Naya Giles, Status: Pen, Time: 10:30 AM [facility] Work Phone: Start: 06-15-2023 OTRECHEADT, Provider: Naya Giles, Status: Pen, Time: 11:30 AM OTRECHEADT, Provider: Naya Giles, Status: Pen, Time: 11:30 AM [facility] [place] Work Phone: Start: 06-15-2023 Patient encounter procedure Outpatient [facility] [address] [place] [address] Start: 15-Jun-2023 11:30 Renana Kemp Intent [facility] Start: 06-10-2023 OTFUADULT4, Provider: Kari Ocampo, Status: Pen, Time: 10:30 AM OTFUADULT4, Provider: Kari Ocampo, Status: Pen, Time: 10:30 AM [facility] Work Phone: Start: 06-08-2023 OTFUADULT4, Provider: Naya Giles, Status: Pen, Time: 11:15 AM OTFUADULT4, Provider: Naya Giles, Status: Pen, Time: 11:15 AM [facility] Work Phone: Start: 06-04-2023 OTFUADULT4, Provider: Kari Ocampo, Status: Pen, Time: 8:45 AM OTFUADULT4, Provider: Kari Ocampo, Status: Pen, Time: 8:45 AM [facility] Work Phone: Start: 06-03-2023 OTFUADULT4, Provider: Kari Ocampo, Status: Pen, Time: 10:30 AM OTFUADULT4, Provider: Kari Ocampo, Status: Pen, Time: 10:30 AM [facility] Work Phone: Start: 05-28-2023 PTRECHECKA, Provider: Trice Tejada, Status: Pen, Time: 10:45 AM PTRECHECKA, Provider: Trice Tejada, Status: Pen, Time: 10:45 AM [facility] Work Phone: Start: 05-26-2023 AQUATICFU4, Provider: Pippa Freeman, Status: Pen, Time: 10:45 AM AQUATICFU4, Provider: Pippa Freeman, Status: Pen, Time: 10:45 AM [facility] Work Phone: Start: 05-26-2023 OTFUADULT4, Provider: Kari Ocampo, Status: Pen, Time: 9:15 AM OTFUADULT4, Provider: Kari Ocampo, Status: Pen, Time: 9:15 AM [facility] Work Phone: Start: 05-21-2023 AQUATICFU4, Provider: Pippa Freeman, Status: Pen, Time: 10:45 AM AQUATICFU4, Provider: Pippa Freeman, Status: Pen, Time: 10:45 AM [facility] Work Phone: Start: 05-19-2023 AQUATICFU4, Provider: Pippa Freeman, Status: Pen, Time: 11:30 AM AQUATICFU4, Provider: Pippa Freeman, Status: Pen, Time: 11:30 AM [facility] Work Phone: Start: 05-14-2023 AQUATICFU4, Provider: Pipap Freeman, Status: Pen, Time: 8:30 AM AQUATICFU4, Provider: Pippa Freeman, Status: Pen, Time: 8:30 AM [facility] Work Phone: Start: 05-11-2023 AQUATICFU4, Provider: Salma Gamboa, Status: Pen, Time: 1:00 PM AQUATICFU4, Provider: Salma Gamboa, Status: Pen, Time: 1:00 PM [facility] Work Phone: Start: 05-07-2023 AQUATICFU4, Provider: Pippa Freeman, Status: Pen, Time: 10:00 AM AQUATICFU4, Provider: Pippa Freeman, Status: Pen, Time: 10:00 AM [facility]: Start: 05-05-2023 AQUATICFU4, Provider: Pippa Freeman, Status: Pen, Time: 11:30 AM AQUATICFU4, Provider: Pippa Freeman, Status: Pen, Time: 11:30 AM [facility] [place] Work Phone: Start: 04-30-2023 FUV, Provider: Matthew Pérez, Status: Pen, Time: 10:45 AM FUV, Provider: Matthew Pérez, Status: Pen, Time: 10:[address] Work Phone: Start: 04-28-2023 PTRECHADUL, Provider: Trice Tejada, Status: Pen, Time: 11:45 AM PTRECHADUL, Provider: Trice Tejada, Status: Pen, Time: 11:45 AM [facility]: Start: 04-28-2023 AQUATICFU4, Provider: Pippa Freeman, Status: Pen, Time: 10:45 AM AQUATICFU4, Provider: Pippa Freeman, Status: Pen, Time: 10:45 AM [facility] Work [facility]: Start: 04-28-2023 Patient encounter procedure [facility] Start: 04-27-2023 OTEVALADUL, Provider: Naya Giles, Status: Pen, Time: 10:45 AM OTEVALADUL, Provider: Naya Giles, Status: Pen, Time: 10:45 AM [facility] [place] Work Phone: Start: 04-26-2023 AQUATICFU4, Provider: Pippa Freeman, Status: Pen, Time: 12:15 PM AQUATICFU4, Provider: Pippa Freeman, Status: Pen, Time: 12:15 PM [facility] Work Phone: Start: 04-26-2023 Patient encounter procedure [facility] Start: 04-23-2023 AQUATICFU4, Provider: Pippa Freeman, Status: Pen, Time: 9:15 AM AQUATICFU4, Provider: Pippa Freeman, Status: Pen, Time: 9:15 AM [facility] Work Phone: Start: 04-23-2023 Patient encounter procedure [facility] Start: 04-14-2023 AQUATICFU4, Provider: Pippa Freeman, Status: Pen, Time: 10:00 AM AQUATICFU4, Provider: Pippa Freeman, Status: Pen, Time: 10:00 AM [facility] Work Phone: Start: 04-14-2023 Patient encounter procedure [facility] Start: 04-09-2023 AQUATICFU4, Provider: Pippa Freeman, Status: Pen, Time: 10:00 AM AQUATICFU4, Provider: Pippa Freeman, Status: Pen, Time: 10:00 AM [facility] Work Phone: Start: 04-09-2023 Patient encounter procedure [facility] Start: 04-07-2023 AQUATICFU4, Provider: Pippa Freeman, Status: Pen, Time: 10:00 AM AQUATICFU4, Provider: Pippa Freeman, Status: Pen, Time: 10:00 AM [facility] Work Phone: Start: 04-07-2023 Patient encounter procedure [facility] Start: 04-05-2023 NEWPROB, Provider: Matthew Pérez, Status: Pen, Time: 1:15 PM NEWPROB, Provider: Matthew Pérez, Status: Pen, Time: 1:15 PM [facility] Work Phone: Start: 04-05-2023 Patient encounter procedure [facility] Start: 04-02-2023 AQUATICFU4, Provider: Pippa Freeman, Status: Pen, Time: 10:00 AM AQUATICFU4, Provider: Pippa Freeman, Status: Pen, Time: 10:00 AM [facility] Work Phone: Start: 04-02-2023 Patient encounter procedure Outpatient [facility] [address] [facility] [address] Start: 02-Apr-2023 10:00 Reanna Kemp Intent [facility] Start: 03-26-2023 AQUATICFU4, Provider: Pippa Freeman, Status: Pen, Time: 9:15 AM AQUATICFU4, Provider: Pippa Freeman, Status: Pen, Time: 9:15 AM [facility] Work Phone: Start: 03-10-2023 PTRECHADUL, Provider: Trice Tejada, Status: Pen, Time: 10:00 AM PTRECHADUL, Provider: Trice Tejada, Status: Pen, Time: 10:00 AM [facility] Work Phone: Start: 03-08-2023 AQUATICFU4, Provider: Pippa Freeman, Status: Pen, Time: 1:00 PM AQUATICFU4, Provider: Pippa Freeman, Status: Pen, Time: 1:00 PM [facility] Work Phone: Start: 03-06-2023 Screening for malignant neoplasm of breast Mammogram [facility] Start: 03-03-2023 End: 03-03-2023 Patient encounter procedure 03/03/2023 2:00 PM EDT Office Visit [facility] [address] [place] [address] Jeanie Ayala MD [address] [place] [address] [facility] Internal [facility] Start: 03-03-2023 AQUATICFU4, Provider: Pippa Freeman, Status: Pen, Time: 10:00 AM AQUATICFU4, Provider: Pippa Freeman, Status: Pen, Time: 10:00 AM [facility] Start: 03-01-2023 AQUATICFU4, Provider: Pippa Freeman, Status: Pen, Time: 1:00 PM AQUATICFU4, Provider: Pippa Freeman, Status: Pen, Time: 1:00 PM [facility] Work Phone: Start: 02-26-2023 AQUATICFU4, Provider: Pippa Freeman, Status: Pen, Time: 10:45 AM AQUATICFU4, Provider: Pippa Freeman, Status: Pen, Time: 10:45 AM [facility]: Start: 02-24-2023 FUV, Provider: Jeison Clancy, Status: Pen, Time: 3:00 PM FUV, Provider: Jeison Clancy, Status: Pen, Time: 3:00 PM [facility] Work Phone: Start: 02-24-2023 FUV, Provider: Jeison Clancy, Status: Pen, Time: 11:00 AM FUV, Provider: Jeison Clancy, Status: Pen, Time: 11:00 AM [facility] Work Phone: Start: 02-19-2023 AQUATICFU4, Provider: Pippa Freeman, Status: Pen, Time: 10:45 AM AQUATICFU4, Provider: Pippa Freeman, Status: Pen, Time: 10:45 AM [facility]: Start: 02-15-2023 AQUATICFU4, Provider: Pippa Freeman, Status: Pen, Time: 1:45 PM AQUATICFU4, Provider: Pippa Freeman, Status: Pen, Time: 1:45 PM [facility]: Start: 02-12-2023 AQUATICFU4, Provider: Pippa Freeman, Status: Pen, Time: 7:45 AM AQUATICFU4, Provider: Pippa Freeman, Status: Pen, Time: 7:45 AM [facility] [place] Work Phone: Start: 02-05-2023 COLON, Provider: Jeanie Ayala, Status: Pen, Time: 9:30 AM COLON, Provider: Jeanie Ayala, Status: Pen, Time: 9:30 AM [facility] [place] Work Phone: Start: 02-05-2023 Patient encounter procedure [facility] Preadmit Start: 02-04-2023 Patient encounter procedure [facility] Med Onc Start: 01-29-2023 Patient encounter procedure [facility] Rehab Start: 01-29-2023 PTRECHADUL, Provider: Trice Tejada, Status: Pen, Time: 8:30 AM PTRECHADUL, Provider: Trice Tejada, Status: Pen, Time: 8:30 AM [facility] Orthopedics [facility] 300 Work Phone: Start: 01-26-2023 NPV, Provider: Jeison Clancy, Status: Pen, Time: 11:30 AM NPV, Provider: Jeison Clancy, Status: Pen, Time: 11:30 AM [facility] [place] Work Phone: Start: 01-26-2023 Patient encounter procedure [facility] Urology Synagogue Start: 01-19-2023 FUV, Provider: Reanna Kemp, Status: Pen, Time: 11:00 AM FUV, Provider: Reanna Kemp, Status: Pen, Time: 11:00 AM [facility] Orthopedics [facility] Sports [facility] 300 Work Phone: Start: 01-19-2023 Patient encounter procedure [facility] Orthopedics [place] Start: 01-15-2023 PTRECHADUL, Provider: Trice Tejada, Status: Pen, Time: 10:15 AM PTRECHADUL, Provider: Trice Tejada, Status: Pen, Time: 10:15 AM [facility] [place] Work Phone: Start: 01-15-2023 AQUATICFU4, Provider: Pippa Freeman, Status: Pen, Time: 9:15 AM AQUATICFU4, Provider: Pippa Freeman, Status: Pen, Time: 9:15 AM [facility] Work [facility]: Start: 01-15-2023 Patient encounter procedure [facility] Rehab Start: 01-13-2023 NPV, Provider: Jeison Clancy, Status: Pen, Time: 1:15 PM NPV, Provider: Jeison Clanyc, Status: Pen, Time: 1:15 PM [facility] Work Phone: Start: 01-13-2023 Patient encounter procedure [facility] Urology Synagogue Start: 01-11-2023 AQUATICFU4, Provider: Pippa Freeman, Status: Pen, Time: 1:45 PM AQUATICFU4, Provider: Pippa Freeman, Status: Pen, Time: 1:45 PM [facility] Work Phone: Start: 01-11-2023 Patient encounter procedure [facility] Rehab Start: 01-08-2023 AQUATICFU4, Provider: Pippa Freeman, Status: Pen, Time: 9:15 AM AQUATICFU4, Provider: Pippa Freeman, Status: Pen, Time: 9:15 AM [facility] Work Phone: Start: 01-08-2023 Patient encounter procedure [facility] Rehab Start: 01-04-2023 AQUATICFU4, Provider: Pippa Freeman, Status: Pen, Time: 1:45 PM AQUATICFU4, Provider: Pippa Freeman, Status: Pen, Time: 1:45 PM [facility] Work Phone: Start: 01-04-2023 Patient encounter procedure [facility] Rehab Start: 12-30-2022 AQUATICFU4, Provider: Pippa Freeman, Status: Pen, Time: 9:15 AM AQUATICFU4, Provider: Pippa Freeman, Status: Pen, Time: 9:15 AM [facility] Work Phone: Start: 12-28-2022 AQUATICFU4, Provider: Pippa Freeman, Status: Pen, Time: 2:30 PM AQUATICFU4, Provider: Pippa Freeman, Status: Pen, Time: 2:30 PM [facility] Work Phone: Start: 12-25-2022 AQUATICFU4, Provider: Pippa Freeman, Status: Pen, Time: 9:15 AM AQUATICFU4, Provider: Pippa Freeman, Status: Pen, Time: 9:15 AM [facility] Work Phone: Start: 12-24-2022 NEWPROB, Provider: Kellie Avery, Status: Pen, Time: 10:15 AM NEWPROB, Provider: Kellie Avery, Status: Pen, Time: 10:15 AM [facility] Work Phone: Start: 12-24-2022 NPV, Provider: Jeison Clancy, Status: Pen, Time: 9:30 AM NPV, Provider: Jeison Clancy, Status: Pen, Time: 9:30 AM [facility] Work Phone: Start: 12-24-2022 Patient encounter procedure [facility] Urology Synagogue Start: 12-23-2022 NPV, Provider: Jeison Clancy, Status: Pen, Time: 2:30 PM NPV, Provider: Jeison Clancy, Status: Pen, Time: 2:30 PM [facility] Work Phone: Start: 12-23-2022 FUV, Provider: Rayne Lin, Status: Pen, Time: 11:15 AM FUV, Provider: Rayne Lin, Status: Pen, Time: 11:15 AM [id number] Work Phone: Start: 12-23-2022 FUV, Provider: Reanna Kemp, Status: Pen, Time: 10:00 AM FUV, Provider: Reanna Kemp, Status: Pen, Time: 10:00 AM [facility] Work Phone: Start: 12-23-2022 Patient encounter procedure [facility] Cardiology Synagogue Start: 12-17-2022 Patient encounter procedure [facility] Rehab Start: 12-17-2022 PTEVALADUL, Provider: Trice Tejada, Status: Pen, Time: 9:30 AM PTEVALADUL, Provider: Trice Tejada, Status: Pen, Time: 9:30 AM [facility] Work Phone: Start: 12-15-2022 FUV, Provider: Jeanie Ayala, Status: Pen, Time: 10:30 AM FUV, Provider: Jeanie Ayala, Status: Pen, Time: 10:30 AM [facility] Medicine Work Phone: Start: 12-15-2022 Patient encounter procedure [facility] Start: 12-02-2022 Patient encounter procedure [facility] Rehab Start: 12-02-2022 PTEVALADUL, Provider: Trice Tejada, Status: Pen, Time: 9:30 AM PTEVALADUL, Provider: Trice Tejada, Status: Pen, Time: 9:30 AM [facility] Work Phone: Start: 11-12-2022 HOLTER 48, Provider: ISLAM DIAGNOSTIC THERAPIST,SMCMONITOR, Status: Pen, Time: 2:00 PM HOLTER 48, Provider: ISLAM DIAGNOSTIC THERAPIST[facility], Status: Pen, Time: 2:00 PM [id number] [place] Work Phone: Start: 11-12-2022 ECHO, Provider: CARRIE GOETZI ECHO 1,SMCECHO1, Status: Pen, Time: 1:00 PM ECHO, Provider: CARRIE GOETZI ECHO 1,SMCECHO1, Status: Pen, Time: 1:00 PM [id number] [address] [place] Work Phone: Start: 11-10-2022 FUV, Provider: Reanna Kemp, Status: Pen, Time: 2:00 PM FUV, Provider: Reanna Kemp, Status: Pen, Time: 2:00 PM [facility] 300 Work Phone: Start: 11-10-2022 FUV, Provider: Reanna Kemp, Status: Pen, Time: 10:00 AM FUV, Provider: Reanna Kemp, Status: Pen, Time: 10:00 AM [facility] Work Phone: Start: 11-05-2022 NPV, Provider: Jeffy Ortiz, Status: Pen, Time: 11:15 AM NPV, Provider: Jeffy Ortiz, Status: Pen, Time: 11:15 AM [facility] Work Phone: Start: 09-16-2022 FUV, Provider: Reanna Kemp, Status: Pen, Time: 10:30 AM FUV, Provider: Reanna Kemp, Status: Pen, Time: 10:30 AM [facility] 300 Work Phone: Start: 09-16-2022 Patient encounter procedure [facility] Orthopedics [place] Start: 09-15-2022 FUV, Provider: Jeanie Ayala, Status: Pen, Time: 9:45 AM FUV, Provider: Jeanie Ayala, Status: Pen, Time: 9:45 AM [facility] Work Phone: Start: 09-15-2022 Patient encounter procedure [facility] Medicine [place] Start: 08-19-2022 FUV, Provider: Reanna Kemp, Status: Pen, Time: 10:30 AM FUV, Provider: Reanna Kemp, Status: Pen, Time: 10:30 AM [facility] 300 Work Phone: Start: 08-18-2022 FUV, Provider: Jeanie Ayala, Status: Pen, Time: 9:45 AM FUV, Provider: Jeanie Ayala, Status: Pen, Time: 9:45 AM [facility] Work Phone: Start: 08-05-2022 NEWPROB, Provider: Matthew Pérez, Status: Pen, Time: 1:00 PM NEWPROB, Provider: Matthew Pérez, Status: Pen, Time: 1:00 PM [facility] Work Phone: Start: 08-05-2022 Diabetes mellitus screening Diabetes Screening [facility] Start: 08-04-2022 FUV, Provider: Jeanie Ayala, Status: Pen, Time: 1:30 PM FUV, Provider: Jeanie Ayala, Status: Pen, Time: 1:30 PM [facility] Work Phone: Start: 07-28-2022 Patient encounter procedure [facility] Med Onc Start: 07-21-2022 EEG, Provider: NEURO EEG SMC02 EQUIPMENT,[id number], Status: Pen, Time: 1:00 PM EEG, Provider: NEURO EEG SMC02 EQUIPMENT,[id number], Status: Pen, Time: 1:00 PM [facility] Work Phone: Start: 07-21-2022 FUV, Provider: Jeanie Ayala, Status: Pen, Time: 9:15 AM FUV, Provider: Jeanie Ayala, Status: Pen, Time: 9:15 AM [facility] Work Phone: Start: 06-18-2022 Influenza vaccination [facility] Start: 06-02-2022 FUV, Provider: Jeanie Ayala, Status: Pen, Time: 10:30 AM FUV, Provider: Jeanie Ayala, Status: Pen, Time: 10:30 AM [facility] Work Phone: Start: 06-02-2022 Patient encounter procedure [facility] Start: 05-10-2022 End: 05-12-2022 Iohexol (Omnipaque 350-Radiology Contrast) . ; (OMNIPAQUE)DOSE = 102 mL IntraVenous Push OnceCa.5 mL/Kg/DOSE x 68 Kg = 102 mL/Dose (Daily Total is 102 mL) Start: 09-May-2022 End: 11-May-2022 Ordered: 09-May-2022 Dinesh Chun Intent [facility] Start: 04-06-2022 FUV, Provider: Jeanie Ayala, Status: Pen, Time: 12:30 PM FUV, Provider: Jeanie Ayala, Status: Pen, Time: 12:30 PM [facility] Internal [facility] Work Phone: Start: 03-04-2022 FUV, Provider: Jeanie Ayala, Status: Pen, Time: 2:00 PM FUV, Provider: Jeanie Ayala, Status: Pen, Time: 2:00 PM [facility] Work Phone: Start: 03-04-2022 Patient encounter procedure [facility] Start: 02-04-2022 FUV, Provider: Jeanie Ayala, Status: Pen, Time: 11:30 AM FUV, Provider: Jeanie Ayala, Status: Pen, Time: 11:30 AM [facility] Work Phone: Start: 01-30-2022 Patient encounter procedure [facility] Start: 01-27-2022 Patient encounter procedure [facility] Med Onc Start: 01-22-2022 Past history of procedure History of esophagogastroduodenoscopy (EGD) Date: 22-Jan-2022 [facility] Start: 01-22-2022 EGD, Provider: Jeanie Ayala, Status: Pen, Time: 11:00 AM EGD, Provider: Jeanie Ayala, Status: Pen, Time: 11:00 AM [facility] Medicine Work Phone: Start: 01-07-2022 FUV, Provider: Jeanie Ayala, Status: Pen, Time: 11:45 AM FUV, Provider: Jeanie Ayala, Status: Pen, Time: 11:45 AM [facility] Work Phone: Start: 12-31-2021 FUV, Provider: Jeanie Ayala, Status: Pen, Time: 3:30 PM FUV, Provider: Jeanie Ayala, Status: Pen, Time: 3:30 PM [facility] Internal Medicine Work Phone: Start: 12-31-2021 Patient encounter procedure [facility] Start: 12-26-2021 Patient encounter procedure [facility] Diagnostic Start: 12-17-2021 FUV, Provider: Jeanie Ayala, Status: Pen, Time: 1:45 PM FUV, Provider: Jeanie Ayala, Status: Pen, Time: 1:45 PM [facility] Work Phone: Start: 12-17-2021 Patient encounter procedure [facility] Diagnostic Start: 12-15-2021 Patient encounter procedure Outpatient [facility] Diagnostic [address] [address] Start: 15-Dec-2021 9:00 Jeanie Ayala M Intent [facility] Diagnostic Start: 12-08-2021 FUV, Provider: Jeanie Ayala, Status: Pen, Time: 11:30 AM FUV, Provider: Jeanie Ayala, Status: Pen, Time: 11:30 AM [facility] Work Phone: Start: 12-08-2021 Patient encounter procedure [facility] Start: 12-01-2021 Depression screening using PHQ-9 (Patient Health Questionnaire 9) score Depression Screening/Follow-Up (PHQ-2/9) [facility] Start: 09-30-2021 Depression Remission Assessment (PHQ9) Depression Remission Assessment (PHQ9) [facility] Start: 08-12-2021 FUV, Provider: Jeanie Ayala, Status: Pen, Time: 10:15 AM FUV, Provider: Jeanie Ayala, Status: Pen, Time: 10:15 AM [facility] Work Phone: Start: 08-12-2021 Patient encounter procedure [facility] Start: 07-24-2021 COLON, Provider: Jeanie Ayala, Status: Pen, Time: 10:00 AM COLON, Provider: Jeanie Ayala, Status: Pen, Time: 10:00 AM [facility] Internal Medicine Work Phone: Start: 07-24-2021 Patient encounter procedure [facility] Preadmit Start: 07-17-2021 FUV, Provider: Sammie Iglesias, Status: Pen, Time: 10:45 AM FUV, Provider: Sammie Iglesias, Status: Pen, Time: 10:45 AM [place] [address] [employer] Work Phone: Start: 07-14-2021 FUV, Provider: Matthew Pérez, Status: Pen, Time: 1:15 PM FUV, Provider: Matthew Pérez, Status: Pen, Time: 1:15 PM [place] [address] [employer] Work Phone: Start: 07-14-2021 [facility] Start: 06-24-2021 FUV, Provider: Jeanie Ayala, Status: Pen, Time: 11:30 AM FUV, Provider: Jeanie Ayala, Status: Pen, Time: 11:30 AM [facility] Internal Medicine Work Phone: Start: 06-24-2021 Patient encounter procedure [facility] Start: 06-18-2021 Influenza vaccination Sequential Influenza Vaccine (#1) [facility] Start: 01-04-2021 Screening for malignant neoplasm of cervix [facility] Start: 01-04-2021 Tetanus vaccination TETANUS EVERY 10 YR [facility] Start: 12-18-2020 End: 12-18-2020 Office Visit 12/18/2020 Office Visit Otolaryngology Julian Galeana MD [facility] Jacob Tello [address] [place] [address] [phone] [facility] Start: 12-10-2020 End: 12-10-2020 Office Visit 12/10/2020 Office Visit Nedra Lima, [employer]ECUTIVE [address] [place] [address] [facility] Start: 06-18-2020 Influenza vaccination given Sequential Influenza Vaccine (#1) [facility] Start: 06-08-2019 End: 06-08-2019 Office Visit 06/08/2019 Office Visit Nedra Lima CNP [address] [facility] [place] [address] [phone] [facility] Start: 03-23-2019 End: 03-23-2019 Office Visit 03/23/2019 Office Visit Nedra Lima CNP [address] [facility] [place] [address] [facility] Start: 03-08-2019 End: 03-08-2019 Office Visit 03/08/2019 Office Visit Nedra Lima CNP [address] [place] [address] [phone] [facility] Start: 03-01-2019 End: 03-01-2019 Office Visit 03/01/2019 Office Visit Nedra Lima, [employer] EXECUTIVE [address] [place] [address] [phone] [facility] Start: 01-03-2019 End: 01-03-2019 Appointment 01/03/2019 Appointment Cardiology Zeke Onofre MD [address] [place] [address] [phone] [facility] Start: 12-26-2018 End: 12-26-2018 Appointment 12/26/2018 Appointment Zeke Morris MD [address] [place] [address] [phone] [facility] Start: 12-23-2018 End: 12-23-2018 Office Visit 12/23/2018 Office Visit Prim xavier Dimas Valentino MD [address] [place] [address] [phone] [facility] Start: 12-08-2018 End: 12-08-2018 Appointment 12/08/2018 Appointment Cardiology Zeke Onofre MD [address] [place] [address] [phone] [facility] Start: 12-08-2018 End: 12-08-2018 Appointment 12/08/2018 Appointment Cardiology Zeke Onofre MD [address] [place] [address] [phone] [facility] Start: 11-11-2018 End: 11-11-2018 Ambulatory 11/11/2018 Office Visit Nedra Lima CNP [address] [place] [address] [phone] [facility] Start: 11-01-2018 End: 11-01-2018 Ambulatory 11/01/2018 Office Visit Nedra Vines CNP [address] [place] [address] [phone] Zeke Onofre MD [address] [place] [address] [phone] [facility] Start: 2018 Screening for malignant neoplasm of colon COLORECTAL CANCER SCREENING [facility] Start: 08-25-2018 End: 08-25-2018 Ambulatory 08/25/2018 Office Visit Prim Dimas Winters MD [address] [place] [address] [phone] [facility] Start: 06-18-2018 Influenza vaccination SEQUENTIAL INFLUENZA VACCINE (#1) [facility] Start: 06-18-2018 Influenza vaccination given SEQUENTIAL INFLUENZA VACCINE (#1) [facility] Start: 06-16-2018 End: 06-16-2018 Ambulatory 06/16/2018 Office Visit Dimas Woods MD [address] [place] [address] [phone] [facility] Start: 04-05-2018 End: 04-05-2018 Ambulatory [facility] Start: 08-20-2017 Ambulatory 08/20/2017 Office Visit Dimas Woods MD [address] [place] [address] [phone] [facility] Start: 08-10-2017 Ambulatory 08/10/2017 Office Visit Dimas Woods MD [address] [place] [address] [phone] [facility] Start: 07-09-2017 Ambulatory 07/09/2017 Follow-Up General Surgery Williams Lobo MD [address] [place] [address] [phone] [facility] Start: 07-06-2017 Ambulatory 07/06/2017 Office Visit Dimas Woods MD [address] [place] [address] [phone] [facility] Start: 06-18-2017 Influenza vaccination SEQUENTIAL INFLUENZA VACCINE (#1) [facility] Work Phone: Start: 2013 Lipid panel LIPID SCREENING [facility] Start: 2013 Screening for malignant neoplasm of breast [facility] Start: 2003 Screening for malignant neoplasm of cervix [facility] Start: 1994 Screening for malignant neoplasm of cervix [facility] Start: 1992 Hepatitis A Vaccines (1 of 2 - Risk 2-dose series) Hepatitis A Vaccines (1 of 2 - Risk 2-dose series) [facility] Start: 1992 Hepatitis B vaccination HEP B VACCINE (1 of 3 - 19+ 3-dose series) [facility] Start: 1992 Hepatitis B Vaccines (1 of 3 - 19+ 3-dose series) Hepatitis B Vaccines (1 of 3 - 19+ 3-dose series) [facility] Start: 1992 Pneumococcal vaccination Pneumococcal Vaccine (1 of 2 - PCV) [facility] Start: 1992 Pneumococcal Vaccine: 50+ Years (1 of 2 - PCV) Pneumococcal Vaccine: 50+ Years (1 of 2 - PCV) [facility] Start: 1991 COVID-19 Vaccine (#1) COVID-19 Vaccine (#1) [facility] Start: 1991 Hepatitis C antibody, confirmatory test Hepatitis C Screening [facility] Start: 1991 Hepatitis C screening Hepatitis C Screening [facility] Start: 1989 COVID-19 Vaccine (1 of 2) COVID-19 Vaccine (1 of 2) [facility] Start: 1988 HIV screening [facility] Start: 1985 COVID-19 Vaccine (1) COVID-19 Vaccine (1) [facility] Start: 1985 Depression Monitoring Depression Monitoring [facility] Start: 1985 Depression Screening Depression Screening [facility] Start: 1985 Depresssion Monitoring Depresssion Monitoring [facility] Start: 1983 Microalbumin measurement, urine, quantitative Urine Microalbumin [facility] Start: 1983 Urine screening for protein Urine Microalbumin [facility] Start: 1983 Urine, microalbumin URINE MICROALBUMIN [facility] Work Phone: Start: 1979 Pneumococcal Vaccine: Ped or At-Risk (1 - PCV) Pneumococcal Vaccine: Ped or At-Risk (1 - PCV) [facility] Start: 1979 Pneumococcal Vaccine: Ped or At-Risk (1 of 4 - PCV13) Pneumococcal Vaccine: Ped or At-Risk (1 of 4 - PCV13) [facility] Start: 1979 Pneumococcal Vaccine: Pediatrics (0 to 5 Years) and At-Risk Patients (6 to 64 Years) (1 - PCV) Pneumococcal Vaccine: Pediatrics (0 to 5 Years) and At-Risk Patients (6 to 64 Years) (1 - PCV) [facility] Start: 1979 Pneumococcal Vaccine: Pediatrics (0 to 5 Years) and At-Risk Patients (6 to 64 Years) (1 of 2 - PCV) Pneumococcal Vaccine: Pediatrics (0 to 5 Years) and At-Risk Patients (6 to 64 Years) (1 of 2 - PCV) [facility] Start: 1976 History and physical examination, annual for health maintenance Wellness Visit [facility] Start: 1974 Hepatitis A Vaccines (1 of 2 - Risk 2-dose series) Hepatitis A Vaccines (1 of 2 - Risk 2-dose series) [facility] Start: 1974 MMR Vaccines (1 of 1 - Standard series) MMR Vaccines (1 of 1 - Standard series) [facility] Start: 03-12-1974 COVID-19 Vaccine (#1) COVID-19 Vaccine (#1) [facility] Start: 1973 Creatinine measurement Creatinine Level [facility] Start: 1973 Echocardiography Echocardiogram [facility] Start: 1973 Hepatitis B Vaccines (1 of 3 - 3-dose series) Hepatitis B Vaccines (1 of 3 - 3-dose series) [facility] Start: 1973 Hepatitis C screening HEPATITIS C VIRUS SCREENING [facility] Start: 1973 HIV screening HIV Screening [facility] Start: 1973 Potassium measurement Potassium Level [facility] Start: 1973 Protein mass conc Mammogram [facility] Start: 1973 Screening for malignant neoplasm of cervix PAP SMEAR [facility] Work Phone: Start: 1973 Screening for malignant neoplasm of colon [facility] Start: 1973 Screening mammography Mammogram [facility] Start: 1973 Tetanus vaccination TETANUS EVERY 10 YR [facility] Work Phone: Start: 1973 Yearly Adult Physical Yearly Adult Physical [facility] 12 lead ECG ECG 12 Lead Rout ine Chest pain at rest Ordered: 11/22/2018 [facility] Comment on above: Ordered: 11/22/2018 12 lead ECG ECG 12 Lead ECG Routine 12/31/2023 9:34 PM EDT [facility] Work Phone: End: 06-16-2019 Bacteria identified Aer cx Nom (Unsp spec) Urine Aerobic Culture Routine History of UTI 1 Occurrences starting 06/16/2018 until 06/16/2019 [facility] Comment on above: 1 Occurrences starting 06/16/2018 until 06/16/2019 End: 08-13-2023 Bacteria identified in Urine by Culture [facility] Work Phone: Comment on above: Once (Lab) for 1 Occurrences starting until 08/13/2023 End: 04-27-2024 DBT Breast - bilateral [facility] Work Phone: Comment on above: Once for 1 Occurrences starting 04/27/20 24 until 04/27/2024 End: 08-13-2023 ECG 12 lead ECG 12 lead ECG STAT Once fo r 1 Occurrences starting 08/13/2023 until 08/13/2023 [facility] Work Phone: Comment on above: Once for 1 Occurrences starting 08/13/20 23 until 08/13/2023 End: 01-21-2020 Echocardiography Echocardiogram complete Rout ine Chest pain at rest 1 Occurrences starting 11/22/2018 until 01/21/2020 [facility] Comment on above: 1 Occurrences starting 11/22/2018 until 01/21/2020 GERD (gastroesophageal reflux disease) GERD (gastroesophageal reflux disease) [facility] H/O: blood transfusion History of blood transfusion [facility] History of reduction of breast History of bilateral breast reduction surgery [facility] End: 10-05-2023 Holter monitor study [facility] Work Phone: Comment on above: Once for 1 Occurrences starting 10/05/20 until 10/05/2023 Hypertension Hypertension [facility] Insertion intrauterine device iud Insertion Device Uterus Pelvic pain Irregular bleeding Preop testing [facility] Work Phone: Laps abd prtm&omentu m dx w/wo spec br/wa spx Exploration Laparoscopy Pelvic pain Irregular bleeding Preop testing [facility] Work Phone: End: 03-14-2025 [facility] Comment on above: Once (Lab) for 1 Occurrences starting until 03/14/2025 End: 11-22-2019 Lipid 1996 panel Lipid panel Routine Chest pa in at rest 1 Occurrences starting 11/22/2018 until 11/22/2019 [facility] Comment on above: 1 Occurrences starting 11/22/2018 until 11/22/2019 Patient Education [facility] Work Phone: Patient referral [facility] Work Phone: End: 03-14-2025 Primidone and Metabolite [facility] Comment on above: Once (Lab) for 1 Occurrences starting until 03/14/2025 Procedure on tissue specimen [facility] Work Phone: Comment on above: Release Upon Ordering for 1 Occurrences starting 06/05/2024, 1 completed End: 11-22-2019 Radionuclide myocardial perfusion study NM Myocardial Perfusion Multiple SPECT Routine Chest pain at rest 1 Occurrences starting 11/22/2018 until 11/22/2019 [facility] Comment on above: 1 Occurrences starting 11/22/2018 until 11/22/2019 End: 03-14-2025 Valproic acid level, total and free [employer] Comment on above: Once (Lab) for 1 Occurrences starting until 03/14/2025 End: 09-01-2023 XR Chest 2 Views [facility] Service Area Work Phone: Comment on above: Once for 1 Occurrences starting 09/01/20 23 until 09/01/2023 NEGATED: Highlighted row has been ruled out! Planned Goals not documented [facility] Work Phone: Immunizations Immunization Date Immunization Notes Care Provider Amadou lópez 09-16-2023 tetanus toxoid, reduced diphtheria toxoid, and acellular pertussis vaccine, adsorbed Dimas Lin MD Work Phone: [facility] Work Phone: 03-05-2020 tetanus toxoid, reduced diphtheria toxoid, and acellular pertussis vaccine, adsorbed Jeanie Puma Tavalljayleene Work Phone: [facility] [address] Work Phone: 06-19-2019 tetanus toxoid, reduced diphtheria toxoid, and acellular pertussis vaccine, adsorbed Jeanie M Tavallaee Work Phone: [facility] [address] Work Phone: 11-22-2018 influenza virus vaccine, unspecified formulation Raúl Hudson MD Work Phone: [facility] Payers Date Payer Category Payer Self-pay 03-18-2021 Medicaid [id number] .[id number] 06-18-2019 Medicaid [id number] .[id number] 08-18-2015 Unknown [employer] [employer] xxxxxxxxxxxx 2015-Present [id number] .[id number] 08-18-2015 Unknown 10-18-2014 Unknown [id number] 2.16.840.1.333101.3.249.13 1973 Unknown [id number] 2.16.840.1.340172.3.579.2.902 1973 Unknown [id number] 2.16.840.1.291255.3.579.2.902 1973 Unknown [id number] 2.16.840.1.196795.3.579.2.106 9 1973 Unknown [id number] 2.16.840.1.365326.3.579.2.106 9 1973 Unknown [id number] 2.16.840.1.841591.3.579.2.106 9 1973 Unknown [id number] 2.16.840.1.658007.3.579.2.106 9 1973 Unknown [id number] 2.16.840.1.980510.3.579.2.106 9 1973 Unknown [id number] 2.16.840.1.234578.3.579.2.106 9 1973 Unknown [id number] 2.16.840.1.667940.3.579.2.106 9 1973 Unknown [id number] 2.16.840.1.945164.3.579.2.106 9 1973 Unknown [id number] 2.16.840.1.833482.3.579.2.106 9 1973 Unknown [id number] 2.16.840.1.840635.3.579.2.106 9 1973 Unknown [id number] 2.16.840.1.008203.3.579.2.106 9 1973 Unknown [id number] 2.16.840.1.241520.3.579.2.106 9 1973 Unknown [id number] 2.16.840.1.967966.3.579.2.106 9 1973 Unknown [id number] 2.16.840.1.222841.3.579.2.106 9 1973 Unknown [id number] 2.16.840.1.431199.3.579.2.106 9 1973 Unknown [id number] 2.16.840.1.055244.3.579.2.106 9 1973 Unknown [id number] 2.16.840.1.888735.3.579.2.106 9 1973 Unknown [id number] 2.16.840.1.942544.3.579.2.106 9 1973 Unknown [id number] 2.16.840.1.082882.3.579.2.106 9 1973 Unknown [id number] 2.16.840.1.293932.3.579.2.106 9 1973 Unknown [id number] 2.16.840.1.494326.3.579.2.106 9 1973 Unknown [id number] 2.16.840.1.166779.3.579.2.106 9 1973 Unknown [id number] 2.16.840.1.328413.3.579.2.106 9 1973 Unknown [id number] 2.16.840.1.993038.3.579.2.106 9 1973 Unknown [id number] 2.16.840.1.644673.3.579.2.106 9 1973 Unknown [id number] 2.16.840.1.538020.3.579.2.106 9 1973 Unknown [id number] 2.16.840.1.028223.3.579.2.106 9 1973 Unknown [id number] 2.16.840.1.436045.3.579.2.106 9 1973 Unknown [id number] 2.16.840.1.956444.3.579.2.106 9 1973 Unknown [id number] 2.16.840.1.108734.3.579.2.106 9 1973 Unknown [id number] 2.16.840.1.446522.3.579.2.106 9 1973 Unknown [id number] 2.16.840.1.378164.3.579.2.106 9 1973 Unknown [id number] 2.16.840.1.242880.3.579.2.106 9 1973 Unknown [id number] 2.16.840.1.317996.3.579.2.106 9 1973 Unknown [id number] 2.16.840.1.152745.3.579.2.106 9 1973 Unknown [id number] 2.16.840.1.446854.3.579.2.106 9 1973 Unknown [id number] 2.16.840.1.001505.3.579.2.106 9 1973 Unknown [id number] 2.16.840.1.662299.3.579.2.106 9 1973 Unknown [id number] 2.16.840.1.271754.3.579.2.106 9 1973 Unknown [id number] 2.16.840.1.135640.3.579.2.106 9 1973 Unknown [id number] 2.16.840.1.689856.3.579.2.106 9 1973 Unknown [id number] 2.16.840.1.873661.3.579.2.106 9 1973 Unknown [id number] 2.16.840.1.068913.3.579.2.106 9 1973 Unknown [id number] 2.16.840.1.201962.3.579.2.106 9 1973 Unknown [id number] 2.16.840.1.636555.3.579.2.106 9 1973 Unknown [id number] 2.16.840.1.632045.3.579.2.106 9 1973 Unknown [id number] 2.16.840.1.298738.3.579.2.106 9 1973 Unknown [id number] 2.16.840.1.706158.3.579.2.106 9 1973 Unknown [id number] 2.16.840.1.056469.3.579.2.106 9 1973 Unknown [id number] 2.16.840.1.729232.3.579.2.106 9 1973 Unknown [id number] 2.16.840.1.472500.3.579.2.106 9 1973 Unknown [id number] 2.16.840.1.820671.3.579.2.106 9 1973 Unknown [id number] 2.16.840.1.554256.3.579.2.356 1973 Unknown [id number] 2.16.840.1.498253.3.579.2.356 1973 Unknown [id number] 2.16840.1.535908.3.579.2.356 1973 Unknown [id number] 2.840.1.241334.3.579.2. 1973 Unknown [id number] 2.840.1.356412.3.579.2. 1973 Unknown [id number] 2.840.1.129172.3.579.2. 1973 Unknown [id number] 2.840.1.165810.3.579.2.356 1973 Unknown [id number] 2.840.1.180858.3.579.2. 1973 Unknown [id number] 2.840.1.092057.3.579.2. 1973 Unknown [id number] 2.840.1.392471.3.579.2.356 1973 Unknown [id number] 2.840.1.724667.3.579.2.356 1973 Unknown [id number] .840.1.952387.3.579.2.356 1973 Unknown [id number] 2.840.1.272437.3.579.2. 1973 Unknown [id number] .840.1.801229.3.579.2.356 1973 Unknown [id number] .840.1.428237.3.579.2.356 1973 Unknown [id number] .840.1.557561.3.579.2.124 5 1973 Unknown [id number] 2.16840.1.734599.3.579.2.124 5 1973 Unknown [id number] 2.16840.1.662980.3.579.2.124 5 1973 Unknown [id number] 2.16.840.1.323251.3.579.2.903 1973 Unknown [id number] 2.16.840.1.802531.3.579.2.903 1973 Unknown [id number] 2.16.840.1.056403.3.579.2.903 1973 Unknown [id number] 2.16.840.1.130578.3.579.2.903 1973 Unknown [id number] 2.16.840.1.265875.3.579.2.903 1973 Unknown [id number] 2.16.840.1.454894.3.579.2.903 1973 Unknown [id number] 2.16.840.1.703310.3.579.2.3 1973 Unknown [id number] 2.16.840.1.973600.3.579.2.903 1973 Unknown [id number] 2.16.840.1.285682.3.579.2.124 3 1973 Unknown [id number] 2.16.840.1.418863.3.579.2.124 3 1973 Unknown [id number] 2.16.840.1.736206.3.579.2.124 3 1973 Unknown [id number] 2.16.840.1.668374.3.579.2.124 3 1973 Unknown [id number] 2.16.840.1.200328.3.579.2.124 3 1973 Unknown [id number] 2.16.840.1.689320.3.579.2.124 3 1973 Unknown [id number] 2.16.840.1.738170.3.579.2.124 3 1973 Unknown [id number] 2.16.840.1.382748.3.579.2.124 3 1973 Unknown [id number] 2.16.840.1.056234.3.579.2.124 3 1973 Unknown [id number] 2.16.840.1.553402.3.579.2.124 3 1973 Unknown [id number] 2.16.840.1.325246.3.579.2.124 3 1973 Unknown [id number] 2.16.840.1.285330.3.579.2.124 3 1973 Unknown [id number] 2.16.840.1.891232.3.579.2.124 3 1973 Unknown [id number] 2.16.840.1.536779.3.579.2.124 3 1973 Unknown [id number] 2.16.840.1.378936.3.579.2.124 3 1973 Unknown [id number] 2.16.840.1.074056.3.579.2.124 3 1973 Unknown [id number] 2.16.840.1.102412.3.579.2.124 3 1973 Unknown [id number] 2.16.840.1.088515.3.579.2.124 3 1973 Unknown [id number] 2.16.840.1.228864.3.579.2.983 1973 Unknown [id number] 2.16.840.1.300591.3.579.2.983 1973 Unknown [id number] 2.16.840.1.298060.3.579.2.983 1973 Unknown [id number] 2.16.840.1.292160.3.579.2.983 1973 Unknown [id number] 2.16.840.1.440197.3.579.2.124 4 1973 Unknown [id number] 2.16.840.1.609348.3.579.2.124 4 Unknown 623 Unknown [id number] 2.16.840.1.668913.3.579.2.462 Unknown [id number] 2.16.840.1.586021.3.579.2.462 Unknown [id number] 2.16.840.1.448469.3.579.2.462 Unknown [id number] 2.16.840.1.808866.3.579.2.462 Unknown [id number] 2.16.840.1.832406.3.579.2.462 Unknown [id number] 2.16.840.1.149542.3.579.2.462 Unknown [id number] 2.16.840.1.203430.3.579.2.462 Unknown [id number] 2.16.840.1.826429.3.579.2.462 Unknown [id number] 2.16.840.1.548468.3.579.2.462 Unknown [id number] 2.16.840.1.866950.3.579.2.462 Social History Date Type Detail Facility Start: 01-04-2018 End: 04-04-2025 Tobacco smoking status [facility] Never smoker [facility] Start: 1975 Sex Assigned At Not on file [facility] Work Phone: Start: 12-01-2020 End: 08-19-2023 Tobacco use and exposure Never used [facility] Start: 12-01-2020 End: 06-16-2024 Alcohol intake Current non-drinker of alcohol (finding) [facility] Start: 09-11-2022 End: 04-27-2024 Exposure to SARS-CoV-2 (event) Not sure [facility] Start: 01-12-2023 End: 02-19-2025 No alcohol use No alcohol use [address] Work Phone: Tobacco smoking consumption unknown [facility] Start: 09-21-2022 End: 09-21-2023 Tobacco smoking status NHIS Ex-smoker [facility] History of tobacco use Current smoker [facility] History of tobacco use Cigarette Smoker [facility] Start: 02-25-2023 End: 07-18-2024 Alcohol intake Lifetime non-drinker (finding) [facility] Work Phone: Start: 01-12-2023 End: 02-19-2025 Tobacco use panel [facility] Work Phone: Adult Depression Screening Assessment 15 [facility] Start: 06-23-2018 Gender identity Identifies as female gender (finding) [facility] Start: 06-23-2018 Sexual orientation Heterosexual (fin gray) [facility] Has the electric, gas, oil, or water company threatened to shut off services in your home in past 12Mo No [facility] How hard is it for you to pay for the very basics like food, housing, medical care, and heating Not very hard [facility] (I/We) worried whether (my/our) food would run out before (I/we) got money to buy more. Never true [facility] Start: 05-18-2022 Sex Female (finding) [facility] Start: 01-02-2023 End: 01-12-2023 Exposure to SARS-CoV-2 (event) Unable to assess [facility] Start: 03-30-2020 Alcohol Alcohol [facility] Start: 1975 Sex Assigned At Female W [facility] NEGATED: Highlighted row - - [address] Work Phone: Medical Equipment Procedure Code Equipment Code Equipment Origin al Text Equipment Identifier Dates [id number] Start: 10-14-2023 Goals Date Patient Goal Desired Activity /State Personal health goal Comment on above: Formatting of this n ote might be different from the original. Reema is working toward taking medications as directed. 03/27/[address] [facility] Formatting of this n ote might be different from the original. Coping and Emotions: Manage stress Adapt to lifestyle changes Get support from family / friends 03/27/[address] [facility] Formatting of this n ote might be different from the original. High blood pressure makes your heart work too hard. It can cause heart attack, stroke and kidney disease. 03/27/[address] [facility] Comment on above: Reema is working t oward taking medications as directed. Reema is working t oward taking medications as directed. 03/27/[address] [facility] Formatting of this n ote might be different from the original. Reema is working toward taking medications as directed. 03/27/[address] [facility] Comment on above: Coping and Emotions: Manage stress Adapt to lifestyle changes Get support from family / friends Coping and Emotions: Manage stress Adapt to lifestyle changes Get support from family / friends 03/27/[address] [facility] Formatting of this n ote might be different from the original. Coping and Emotions: Manage stress Adapt to lifestyle changes Get support from family / friends 03/27/[address] [facility] Comment on above: High blood pressure makes your heart work too hard. It can cause heart attack, stroke and kidney disease. High blood pressure makes your heart work too hard. It can cause heart attack, stroke and kidney disease. 03/27/[address] [facility] Formatting of this n ote might be different from the original. High blood pressure makes your heart work too hard. It can cause heart attack, stroke and kidney disease. 03/27/[address] [facility] Functional Status Date Assessment Result Facility 12-08-2024 Patient Health Questionnaire 2 item (PHQ-2) [Reported] [facility] 11-17-[address] [facility] suicide severity rating scale screener - recent [C-SSRS] [facility] Work Phone: 11-08-2023 Patient Health Questionnaire 2 item (PHQ-2) [Reported] [facility] Work Phone: 01-07-2022 PHQ-9 [id number] Sever e (20-27) [facility] Work Phone: NEGATED: Highlighted row Functional performance Functional status health issues are not documented Disease [address] Work Phone: Mental Status Date Assessment Result Facility 03-21-2025 Cognitive function Voice/Name [facility] Work Phone: NEGATED: Highlighted row Cognitive function [Interpretation] Cognitive status health issues are not documented Disease [address] Work Phone: Clinical Notes 11-20-2009 to 04-04-2025 Note Date & Type Note Facility 04-04-2025 Discharge summary Note Date/Time April 04, 2025 9:34pm [facility] Medical Records Department [address] [place] [address] Emergency Department Summary 04/04/25 MR#: [id number] Acct: [id number] Name: REEMA SHAH Rep #:[id number] : [...] wish to return to nursing facility Location: [facility] Current Severity: Mild Maximum Severity: Moderate Worsened by: Unknown Relieved by: Nothing Associated Symptoms Associated Symptoms: Patient with little eye contact. And has tremor. She states that she does Narrative Narrative: patient is a 49-year-old woman. Patient presents from skilled nursing by ambulance for psychiatric eval. Reportedly patient [...] Prior similar symptoms: Yes (Per the [place] addiction social worker Lori who was asked tosee her to help determi) Recent Illness/Hospitalization: No PFSH PFSH Medical History Borderline personality disorder Long-term use of high-risk medication Systolic heart failure Major depressive disorder Tremor History of DE (myocardial infarction) History of TIA (transient ischemic [...] bisacodyl 10 mg rectal suppository 10 mg SC DAILY PRN constipation 03/21/25 Unknown History cholecalciferol [...] Vomiting Verified 04/04/25 15:44 Social History housing: skilled nursing Smoking Status: Never smoker Electronic Cigarette Use: [...] % (Auto) 65.7 Lymph % (Auto) 22.8 Gentry % (Auto) 10.3 H Eos % (Auto) [...] NO ACUTE FRACTURE OR DISLOCATION. Reading Location: [place] [address] Management Discussion w/another healthcare provider: home support worker/Case management (Lori did see patient. She informed this is her third skilled nursing and the year. [place] patient does not [...] DAILY bisacodyl 10 mg suppository 10 mg SC DAILY PRN (Reason: constipation) clonidine HCl 0.1 [...] pressure checked within a week. Print Language: Tajik Disposition Disposition: Home, Self Care What to do if you have Problems For any increased pain, shortness of breath, bleeding, nausea or vomiting, chestpain, or any unexpected problems, contact your Primary Care Provider. Call [facility] ([phone]) or report to the closest Emergency Room. Call 911 if necessary. 04/04/252133 <Electronically signed by Lawson Higgins MD> Cosigner Signature (if applicable): CC: Dr. Sree Jamison MD ~ Signed [facility] Work Phone: 1(879) 817-649806-18-2025 Discharge summary [facility] Medical Records Department [address] [place] [address] Emergency Department Summary 04/04/25 MR#: [id number] Acct: [id number] Name: REEMA SHAH Rep #:[id number] : [...] wish to return to nursing facility Location: [facility] Current Severity: Mild Maximum Severity: Moderate Worsened by: Unknown Relieved by: Nothing Associated Symptoms Associated Symptoms: Patient with little eye contact. And has tremor. She states that she does Narrative Narrative: patient is a 49-year-old woman. Patient presents from skilled nursing by ambulance for psychiatric eval. Reportedly patient [...] Prior similar symptoms: Yes (Per the [place] addiction social worker Lori who was asked tosee her to help determi) Recent Illness/Hospitalization: No PFSH PFSH Medical History Borderline personality disorder Long-term use of high-risk medication Systolic heart failure Major depressive disorder Tremor History of DE (myocardial infarction) History of TIA (transient ischemic [...] bisacodyl 10 mg rectal suppository 10 mg SC DAILY PRN constipation 03/21/25 Unknown History cholecalciferol [...] Vomiting Verified 04/04/25 15:44 Social History housing: skilled nursing Smoking Status: Never smoker Electronic Cigarette Use: [...] % (Auto) 65.7 Lymph % (Auto) 22.8 Gentry % (Auto) 10.3 H Eos % (Auto) [...] NO ACUTE FRACTURE OR DISLOCATION. Reading Location: [place] [address] Management Discussion w/another healthcare provider: home support worker/Case management (Lori did see patient. She informed this is her third skilled nursing and the year. [place] patient does not [...] DAILY bisacodyl 10 mg suppository 10 mg SC DAILY PRN (Reason: constipation) clonidine HCl 0.1 [...] pressure checked within a week. Print Language: Tajik Disposition Disposition: Home, Self Care What to do if you have Problems For any increased pain, shortness of breath, bleeding, nausea or vomiting, chestpain, or any unexpected problems, contact your Primary Care Provider. Call [facility] ([phone]) or report tothe closest Emergency Room. Call 911 if necessary. 04/04/252133 Cosigner Signature (if applicable): CC: Dr. Sree Jamison MD ~ Signed [facility]06-18-2025 Radiology Diagnostic study note [facility] Imaging Services [address] [place], [place] [address] Foot min 3 Views MR#: [id number] Acct: [id number] Name: EREMA SHAH Rep #: [id number] : 1975 F 49 From: Lupillo Morgan MD PCP: Dr. Sree Jamison MD Status: REG E R Study:Foot min 3 Views Date of Exam: Exam# [id number] Ordering Dr: Kalpana Higgins MD PROCEDURE: FOOT MIN 3 VIEWS 04/04/2025 REASON FOR EXAM: INJURY/PAIN TECHNIQUE: FOOT MIN 3 VIEWS COMPARISON: 11/04/2024. FINDINGS: No evidence acute fracture or dislocation. Mild degenerative changes of the foot. The soft tissues are unremarkable. RAD/Foot min 3 Views IMPRESSION: NO ACUTE FRACTURE OR DISLOCATION. Reading Location: [id number] CC: Dr. Sree Jamison MD; Dr. Lawson Higgins MD ~ Bulker: Signed [facility]06-04-2025 Discharge summary Author Ian Starr [facility] Note Date/Time March 21, 2025 4:12p m [facility] Medical Records Department [address] [place] [address] Emergency Department Summary 03/21/25 MR#: [id number] Acct: [id number] Name: REEMA SHAH Rep #:[id number] : 1975 49 From: Ian Starr MD PCP: Dr. Sree Jamison MD Status:REG E R Location: ED HPI History of Present Illness Chief Complaint: Seizure Informant: patient Narrative Narrative: 49-year-old female from a skilled nursing currently has seizure activity this morning. The [...] on and that has beenthe case yesterday. [facility] Medical History Borderline personality disorder Long-term use of high-risk medication Systolic heart failure Major depressive disorder Tremor History of DE (myocardial infarction) History of TIA (transient ischemic [...] bisacodyl 10 mg rectal suppository 10 mg SC DAILY PRN constipation 03/21/25 Unknown History cholecalciferol [...] her neurologic baseline with staff at the skilled nursing. She does havebaseline tremors, although they may [...] has been given Tylenol at home the skilled nursing for it. I give her an IV [...] % (Auto) 66.0 Lymph % (Auto) 23.2 Gentry % (Auto) 9.0 Eos % (Auto) 0.6 [...] Clarity Clear Urine pH 6.0 Ur Specific [place] 1.015 Urine Protein 30 H Urine Glucose [...] DAILY bisacodyl 10 mg suppository 10 mg SC DAILY PRN (Reason: constipation) clonidine HCl 0.1 [...] office for recommended dosage increase. Print Language: Tajik Disposition Disposition: Home, Self Care What to do if you have Problems For any increased pain, shortness of breath, bleeding, nausea or vomiting, chestpain, or any unexpected problems, contact your Primary Care Provider. Call [facility] ([phone]) or report to the closest Emergency Room. Call 911 if necessary. 03/21/25 1612 <Electronically signed by Ian Starr MD> Cosigner Signature (if applicable): CC: Dr. Sree Jamison MD ~ Signed [facility] Work Phone: 1(520) 121-771306-04-2025 Discharge summary [facility] Medical Records Department [address] [place] [address] Emergency Department Summary 03/21/25 MR#: [id number] Acct: [id number] Name: REEMA SHAH Rep #:[id number] : 1975 49 From: Ian Starr MD PCP: Dr. Sree Jamison MD Status:REG E R Location: ED HPI History of Present Illness Chief Complaint: Seizure Informant: patient Narrative Narrative: 49-year-old female from a skilled nursing currently has seizure activity this morning. The [...] and that has beenthe case yesterday. PFSH [facility] Medical History Borderline personality disorder Long-term use of high-risk medication Systolic heart failure Major depressive disorder Tremor History of DE (myocardial infarction) History of TIA (transient ischemic [...] bisacodyl 10 mg rectal suppository 10 mg SC DAILY PRN constipation 03/21/25 Unknown History cholecalciferol [...] her neurologic baseline with staff at the skilled nursing. She does havebaseline tremors, although they may [...] has been given Tylenol at home the skilled nursing for it. I give her an IV [...] % (Auto) 66.0 Lymph % (Auto) 23.2 G[place] % (Auto) 9.0 Eos % (Auto) 0.6 [...] Clarity Clear Urine pH 6.0 Ur Specific [place] 1.015 Urine Protein 30 H Urine Glucose [...] DAILY bisacodyl 10 mg suppository 10 mg SC DAILY PRN (Reason: constipation) clonidine HCl 0.1 [...] office for recommended dosage increase. Print Language: Tajik Disposition Disposition: Home, Self Care What to do if you have Problems For any increased pain, shortness of breath, bleeding, nausea or vomiting, chestpain, or any unexpected problems, contact your Primary Care Provider. Call [facility] ([phone]) or report tothe closest Emergency Room. Call 911 if necessary. 03/21/25 1612 Cosigner Signature (if applicable): CC: Dr. Sree Jamison MD ~ Signed [facility]05-29-2025 NotePHYSICAL THERAPY [facility] Initial Evaluation Name/MRN: Adore Shah ([id number]) Evaluation Date: 03/15/2025 Date of : 1975 Admission Date: 03/13/2025 11:18 AM Age: 49 y.o. Room/Bed: N3-346/N3-346 A Discharge Recommendation: Alf Facility Equipment Needed: No Assessment IMPRESSION: Pt [...] Problem List Diagnosis Date Noted Seizure disorder ([facility]) ([facility]) 03/13/2025 Vaginal bleeding 10/25/2023 Presence of intrauterine contraceptive device 10/25/2023 Obesity with body mass index 30 or greater 10/25/2023 Hypocalcemia 10/25/2023 Closed head injury 10/25/2023 Pelvic pain 08/16/2023 Generalized hyperhidrosis 04/01/2023 Personal history of transient ischemic attack (TIA), and cerebral infarction without residual deficits 04/01/2023 Psychoactive substance dependence ([facility]) 02/25/2023 Unilateral primary osteoarthritis, left knee 01/19/2023 Tremor 01/11/2023 Seizure-like activity ([facility]) 01/11/2023 Tinea corporis 01/11/2023 Dermatophytosis 01/11/2023 Stage 3b chronic kidney disease ([facility]) 01/11/2023 Scalp hematoma 01/11/2023 Osteopenia 01/11/2023 Migraines 01/11/2023 Hypomagnesemia 01/11/2023 Hyperglycemia 01/11/2023 Hypercholesterolemia 01/11/2023 Fatty liver 01/11/2023 COVID-19 01/11/2023 Compression fracture of T5 vertebra ([facility]) 01/11/2023 Urinary tract infection 01/08/2023 Chronic systolic heart failure ([facility]) 01/08/2023 Spondylosis without myelopathy or radiculopathy, lumbar region 12/23/2022 Chronic low back pain 11/26/2022 Recurrent falls 08/24/2022 Generalized epilepsy (CMS/HCC) ([facility]) 12/30/2021 Abnormal gait 12/30/2021 Weakness 12/01/2020 Thrombocytopenia ([facility]) 12/01/2020 Hypothyroidism 12/01/2020 Hypokalemia 12/01/2020 Fracture of [...] Yes Heart failure di (more content not included)...[facility]05-29-2025 History of Present illness Narrative* Fannie Tay, PT - 03/15/2025 2:09 PM EDT Images from the original note were not included. PHYSICAL THERAPY [facility] Initial Evaluation Name/MRN: Adore Shah ([id number]) Evaluation Date: 03/15/2025 Date of : 1975 Admission Date: 03/13/2025 11:18 AM Age: 49 y.o. Room/Bed: N3-346/N3-346 A Discharge Recommendation: Alf Facility Equipment Needed: No Assessment IMPRESSION: Pt [...] Problem List Diagnosis Date Noted Seizure disorder ([facility]) ([facility]) 03/13/2025 Vaginal bleeding 10/25/2023 Presence of intrauterine contraceptive device 10/25/2023 Obesity with body mass index 30 or greater 10/25/2023 Hypocalcemia 10/25/2023 Closed head injury 10/25/2023 Pelvic pain 08/16/2023 Generalized hyperhidrosis 04/01/2023 Personal history of transient ischemic attack (TIA), and cerebral infarction without residual deficits 04/01/2023 Psychoactive substance dependence ([facility]) 02/25/2023 Unilateral primary osteoarthritis, left knee 01/19/2023 Tremor 01/11/2023 Seizure-like activity ([facility]) 01/11/2023 Tinea corporis 01/11/2023 Dermatophytosis 01/11/2023 Stage 3b chronic kidney disease ([facility]) 01/11/2023 Scalp hematoma 01/11/2023 Osteopenia 01/11/2023 Migraines 01/11/2023 Hypomagnesemia 01/11/2023 Hyperglycemia 01/11/2023 Hypercholesterolemia 01/11/2023 Fatty liver 01/11/2023 COVID-19 01/11/2023 Compression fracture of T5 vertebra ([facility]) 01/11/2023 Urinary tract infection 01/08/2023 Chronic systolic heart failure ([facility]) 01/08/2023 Spondylosis without myelopathy or radiculopathy, lumbar region 12/23/2022 Chronic low back pain 11/26/2022 Recurrent falls 08/24/2022 Generalized epilepsy (CMS/HCC) ([facility]) 12/30/2021 Abnormal gait 12/30/2021 Weakness 12/01/2020 Thrombocytopenia ([facility]) 12/01/2020 Hypothyroidism 12/01/2020 Hypokalemia 12/01/2020 Fracture of [...] Raw Score (No Stairs) : 12 [facility] Score: Static standing (1 or more minutes) [...] of Care supervision is transferred to a [facility] Therapy Services Physical Therapist. Goals and/or treatment [...] be monitored and followed by the diet bakery technician. * Fannie Cross PT - 03/14/2025 1:16 PM EDT Images from the original note were not included. PHYSICAL THERAPY [facility] Name/MRN: Adore Shah ([id number]) Date: 03/14/2025 Pt states she has left [...] since Jun 10, 1994 while at the [facility] when she experienced aconvulsion. She is admitted [...] and lower extremities. Coordination: No dysmetria on qnpjmk-qnsq-bbcygn or cimx-ntdr-vgcs testing. Rapid alternating movements without dysdiadochokinesia. Gait: [...] ASM -Continuous video EEG monitoring in place -[employer] Studys q4h -Telemetry monitoring in place -Seizure precautions [...] Date - 1-2 days - [facility] - Pending the following - neurology recs Total time spent (which include face to face and non face to face encounters) : minutes Toxic drug monitoring/narrow therapeutic index drug monitoring : # Drug name : # Route administered : # Method of monitoring : Extended Emergency Contact Information Primary Emergency Contact: Ko Perea Relation: Father Insole Stiffener needed? No Roc Banegas DO Division of [...] sodium chloride 0.9% [4] documented in this [facility]05-29-2025 Nurse Note* Curtis Oshea RN - 03/15/2025 12:56 PM EDT Report called and received by [employer] [facility] [id number] Nurse Note* Curtis Oshea RN - 03/15/2025 12:56 PM EDT Report called and received by [employer] documented in this [id number] Plan of care note* Care Plan - [...] maintained or improved Outcome: Adequate for Discharge [facility] [id number] Miscellaneous Notes* Care Plan - Curtis Oshea [...] Confirmed pickup time of 2:00PM by transport [employer] at phone number . Location of facility drop off is [facility]. Facility notified via CareportIvelisse notified on secure chat. * Care Coordination - Ivelisse Duran RN - 03/15/2025 12:20 PM EDT Cont's EEG completed. Care team messaged. DC order /Mar completed. MICHAEL completed. [facility] tasked to send to transport for 2:00 PM today to return to [facility], [address] [facility] * Care Plan - Ruth Topete [...] Cont's EEG. Pt is a resident @ [facility]. Called pt's father, Ko, , for Hx, no answer message left. Called the [facility] [phone], spoke w Floridalma. Plan is for DC temitope when EEG completed. WE will need to arrange transport @[place]. to follow. * Care Plan - Ruth [...] or improved Outcome: Progressing documented in this [facility]05-29-2025 Note* Care Coordination - Alvin Overton - 03/15/2025 12:27 PM EDT Transport requested in [employer]. Awaiting time confirmation. Confirmed pickup time of 2:00PM by transport company [employer] at phone number . Location of facility drop off is [facility]. Facility notified via Ivelisse Contreras notified on secure chat. [facility] [id number] Note* Care Coordination - Alvin Overton - 03/15/2025 12:27 PM EDT Transport requested in [employer]. Awaiting time confirmation. Confirmed pickup time of 2:00PM by transport company [employer] at phone number . Location of facility drop off is [facility]. Facility notified via Ivelisse Contreras notified on secure chat. [facility] [id number] Note* Care Coordination - Ivelisse Duran RN - 03/15/2025 12:20 PM EDT Cont's EEG completed. Care team messaged. DC order /Mar completed. MICHAEL completed. INVESTMENT ACCOUNTING CLERK tasked to send to transport for 2:00 PM today to return to [facility], [address] Called[address]ility w tile picker time. [facility] [id number] Note* Care Coordination - Ivelisse Duran RN - 03/15/2025 12:20 PM EDT Cont's EEG completed. Care team messaged. DC order /Mar completed. MICHAEL completed. [facility] tasked to send to transport for 2:00 PM today to return to [facility], [address] [facility]. [facility] [id number] Hospital Discharge instructions* Discharge Instr - MICHAEL* [...] Primary Emergency Contact: Ko Perea Relation: Father Insole Stiffener needed? No Past Surgical History: Past Surgical [...] is only under the purview of a power press tender or plastic surgeon that could use laser to remove the hair she is already had developed. Last Assessment & Plan: Patient again asks which can be done about her hirsutism have reminded her that probably that is only under the purview of a power press tender or plastic surgeon that could use laser to remove the hair she is already had developed. GERD (gastroesophageal reflux disease) Overview Signed 10/25/2023 8:51 AM by Mejia Cullen MD Last Assessment & Plan: Patient continues on the pantoprazole 40 mg once a day. Have advised she do so. Might also want to consider following up with the general labor delivery specialist. Hiatal hernia Overview Signed 10/25/2023 8:51 [...] your blood pressure was elevated at the odd jobs day worker's office today because you had not taking your Cardura as the odd jobs day worker thought. Your blood pressure has decreased since [...] your blood pressure was elevated at the odd jobs day worker's office today because you had not taking your Cardura as the odd jobs day worker thought. Your blood pressure has decreased since [...] Total assistance Toileting Total assistance Feeding Independent Assurance Senior Manager Insurance Independent Med Delivery yes Wound Care Documentation [...] Date: 03/13/2025 Discharging to Facility/ Agency Name: [facility] Address: [address] ([address]) Fax: Dialysis Facility (if applicable) Name: NA Address: Dialysis Schedule: Phone: Fax: Economic Adviser/Promotional Model signature: ICIAN SECTION Name: Reema Shah Prognosis: [...] mesial frontal epileptogenic source superimposed on a zhks-ef-gxiqegdn global encephalopathy nonspecific as to etiology. ASM [...] to a nursing facility directly from an [facility] or a unit of a hospital that is not operated by or licensed by [facility] under section 5119.14 or 5160-3-15.1 5 The [...] change in H&P PHYSICIAN SIGNATURE: documented in [facility]05-29-2025 NoteHospitalist Discharge Summary Reema Shah : 1975 Admit date: 03/13/2025 Discharge date: 03/15/2025 Admitting Physician: Srinivasa Luevano MD Primary Care Physician: Jeanie Ayala Visit Status: inpatient Code Status: Prior BRIEF [...] mesial frontal epileptogenic source superimposed on a htpl-sg-tyvieswm global encephalopathy nonspecific as to etiology. ASM [...] Disposition: Patient discharged in stable condition to [facility] Greater than 31 minutes spent discharging the [...] MCG tablet controlled-release desvenlafax (more content not included)...[facility]05-29-2025 Note [facility] & EEG LABORATORY [address] [place] [address] CONTINUOUS LONG-TERM VIDEO EEG MONITORING REPORT Patient Name: Reema Shah : 1975 Date of Study: 03/15/2025 Duration Recorded: 12:01:00 EEG#: [id number] SUPERVISOR MICROBIOLOGY TECHNOLOGISTS: Eagle Wilkerson & Janet Curtis (student) PROVIDER REQUESTING STUDY: Dr. Hernandez REASON FOR EXAM: Evaluate for seizures DIAGNOSIS TAG: Transient Neurologic Symptoms (TNS) HISTORY: Reema Shah is a 49 y.o. female with history of significant for mood disorder, borderline personality disorder, psoriasis, and epilepsy since Jun 10, 1994 while at the [facility] when she experienced a convulsion. Previous provider ([facility]) followed her for kidney problems since age [...] study with video was carried out at [facility]. Scalp electrodes were positioned in person by an cardiopulmonary technologist chief, following patient education, according to the 10-20 International system of electrode placement and maintained for integrity and quality of the recording. EEG data with video was recorded continuously and digitally stored. The cardiopulmonary technologist chief reviewed all automated detections and manual events [...] mesial frontal epileptogenic source superimposed on a ugnb-yu-wubcwcan global encephalopathy nonspecific as to etiology. Will [...] cholecalciferol (Vitamin D-3) tablet (more content not included)...[facility]05-29-2025 Procedure note* Sohail Hernandez MD PhD - 03/15/2025 9:16 AM EDT Images from the original note were not included. [facility] EEG [facility]ORAT[facility] [address] [place] [address] CONTINUOUS LONG-TERM VIDEO EEG MONITORING REPORT Patient Name: Reema Shah : 1975 Date of Study: 03/15/2025 Duration Recorded: 12:01:00 EEG#: [id number] SUPERVISOR MICROBIOLOGY TECHNOLOGISTS: Eagle Wilkerson & Janet Curtis (student) PROVIDER REQUESTING STUDY: Dr. Hernandez REASON FOR EXAM: Evaluate for seizures DIAGNOSIS TAG: Transient Neurologic Symptoms (TNS) HISTORY: Reema Shah is a 49 y.o. female with history of significant for mood disorder, borderline personality disorder, psoriasis, and epilepsy since Jun 10, 1994 while at the [facility] when she experienced a convulsion. Previous provider ([facility]) followed her for kidney problems since age [...] study with video was carried out at [facility]. Scalp electrodeswere positioned in person by an cardiopulmonary technologist chief, following patient education, according to the 10-20 International system of electrode placement and maintained for integrity and quality of the recording. EEG data with video was recorded continuously and digitally stored. The cardiopulmonary technologist chief reviewed all automated detections and manual events [...] mesial frontal epileptogenic source superimposed on a kmlo-jq-uuwmyqmn global encephalopathy nonspecific as to etiology. Will [...] 5-40 mL IntraVENous PRN Srinivasa Luevano MD [facility] Work Phone: [phone] Procedure note* Sohail Hernandez MD PhD - 03/15/2025 9:16 AM EDT Images from the original note were not included. [facility]ORAT[facility] [address] [place] [id number] CONTINUOUS LONG-TERM VIDEO EEG MONITORING REPORT Patient Name: Reema Shah : 1975 Date of Study: 03/15/2025 Duration Recorded: 12:01:00 EEG#: [id number] SUPERVISOR MICROBIOLOGY TECHNOLOGISTS: Eagle Wilkerson & Janet Curtis (student) PROVIDER REQUESTING STUDY: Dr. Hernandez REASON FOR EXAM: Evaluate for seizures DIAGNOSIS TAG: Transient Neurologic Symptoms (TNS) HISTORY: Reema Shah is a 49 y.o. female with history of significant for mood disorder, borderline personality disorder, psoriasis, and epilepsy since Jun 10, 1994 while at the [facility] when she experienced a convulsion. Previous provider ([facility]) followed her for kidney problems since age [...] study with video was carried out at [facility]. Scalp electrodeswere positioned in person by an cardiopulmonary technologist chief, following patient education, according to the 10-20 International system of electrode placement and maintained for integrity and quality of the recording. EEG data with video was recorded continuously and digitally stored. The cardiopulmonary technologist chief reviewed all automated detections and manual events [...] mesial frontal epileptogenic source superimposed on a jwjn-ro-xlgzldpn global encephalopathy nonspecific as to etiology. Will [...] mg 250 mg Oral q AM Srinivasa Luveano MD 250 mg at 03/15/25 0846 And [...] mL IntraVENous PRN Srinivasa Luevano MD * oShail Hernandez MD PhD - 03/14/2025 11:39 AM EDT Images from the original note were not included. [facility] EEG [facility]ORATORY [address] [place] [address] CONTINUOUS LONG-TERM VIDEO EEG MONITORING REPORT Patient Name: Reema Shah : 1975 Date of Study: 03/14/2025 Duration Recorded: 23:33:07 EEG#: [id number] SUPERVISOR MICROBIOLOGY TECHNOLOGISTS: Eagle Wilkerson & Janet Curtis (student) PROVIDER REQUESTING STUDY: Dr. Hernandez REASON FOR EXAM: Evaluate for seizures DIAGNOSIS TAG: Transient Neurologic Symptoms (TNS) HISTORY: Reema Shah is a 49 y.o. female with history of significant for mood disorder, borderline personality disorder, psoriasis, and epilepsy since Jun 10, 1994 while at the [facility] when she experienced a convulsion. Previous provider ([facility]) followed her for kidney problems since age [...] study with video was carried out at [facility]. Scalp electrodeswere positioned in person by an cardiopulmonary technologist chief, following patient education, according to the 10-20 International system of electrode placement and maintained for integrity and quality of the recording. EEG data with video was recorded continuously and digitally stored. The cardiopulmonary technologist chief reviewed all automated detections and manual events [...] 25 mcg 25 mcg Oral qAM AC Sriinvasa Luevano MD 25 mcg at 03/14/25 0603 [...] from the original note were not included. [facility] EEG [facility]ORATORY [address] [place] [address] CONTINUOUS LONG-TERM VIDEO EEG MONITORING REPORT Patient Name: Reema Shah : 1975 Date of Study: 03/13/25 Duration Recorded: 12:01:35 EEG#: [id number] SUPERVISOR MICROBIOLOGY TECHNOLOGISTS: Eagle Wilkerson & Janet Curtis (student) PROVIDER REQUESTING STUDY: Dr. Hernandez REASON FOR EXAM: Evaluate for seizures DIAGNOSIS TAG: Transient Neurologic Symptoms (TNS) HISTORY: Reema Shah is a 49 y.o. female with history of significant for mood disorder, borderline personality disorder, psoriasis, and epilepsy since Jun 10, 1994 while at the [facility] when she experienced a convulsion. Previous provider ([facility]) followed her for kidney problems since age [...] study with video was carried out at [facility]. Scalp electrodeswere positioned in person by an cardiopulmonary technologist chief, following patient education, according to the 10-20 International system of electrode placement and maintained for integrity and quality of the recording. EEG data with video was recorded continuously and digitally stored. The cardiopulmonary technologist chief reviewed all automated detections and manual events [...] 650 mg 650 mg Rectal q6h PRN Srinivaas Luevano MD albuterol 108 (90 Base) MCG/ACT [...] 10 mg 10 mg Rectal Daily PRN Srinivsaa Luevaon MD busPIRone (Buspar) tablet 10 mg 10 [...] PRN Srinivasa Luevano MD documented in this [facility]05-28-2025 Plan of care note* Care Plan [...] integrity is maintained or improved Outcome: Progressing [facility] [id number] Plan of care note* Care Plan - [...] integrity is maintained or improved Outcome: Progressing [facility] [id number] Note* Care Coordination - Ivelisse Duran RN - 03/14/2025 2:20 PM EDT Pt has Hx of seizure disorder. Was a Direct adm for Cont's EEG. Pt is a resident @ [facility]. Called pt's father, Ko, , for Hx, no answer message left. Called the [facility] [phone], spoke shannon Hedrick. Plan is for DC temitope when EEG completed. WE will need to arrange transport @[place]. to follow. [facility] [id number] Note* Care Coordination - Ivelisse Duran RN - 03/14/2025 2:20 PM EDT Pt has Hx of seizure disorder. Was a Direct adm for Cont's EEG. Pt is a resident @ [facility]. Called pt's father, Ko, , for Hx, no answer message left. Called the [facility] [phone], spoke w Floridalma. Plan is for DC temitope when EEG completed. WE will need to arrange transport @[place]. to follow. [facility] [id number] NoteDepartment of Neurological Sciences Section of Epilepsy PROGRESS NOTE ID: Reema Shah is a 49 y.o. female with history of mood disorder, borderline personality disorder, psoriasis, and epilepsy since Jun 10, 1994 while at the [facility] when she experienced a convulsion. She is [...] and lower extremities. Coordination: No dysmetria on tdglux-icvz-stexnr or lwfl-ylpw-nwik testing. Rapid alternating movements without dysdiadochokinesia. Gait: [...] cyanocobalamin (Vitamin B-12) tablet (more content not included)...[facility]05-28-2025 [facility] EPILEPSY C[facility] & EEG LABORATORY [address] [place] [address] CONTINUOUS LONG-TERM VIDEO EEG MONITORING REPORT Patient Name: Reema Shah : 1975 Date of Study: 03/14/2025 Duration Recorded: 23:33:07 EEG#: [id number] SUPERVISOR MICROBIOLOGY TECHNOLOGISTS: Eagle Wilkerson & Janet Curtis (student) PROVIDER REQUESTING STUDY: Dr. Hernandez REASON FOR EXAM: Evaluate for seizures DIAGNOSIS TAG: Transient Neurologic Symptoms (TNS) HISTORY: Reema Shah is a 49 y.o. female with history of significant for mood disorder, borderline personality disorder, psoriasis, and epilepsy since Jun 10, 1994 while at the [facility] when she experienced a convulsion. Previous provider ([facility]) followed her for kidney problems since age [...] study with video was carried out at [facility]. Scalp electrodes were positioned in person by an cardiopulmonary technologist chief, following patient education, according to the 10-20 International system of electrode placement and maintained for integrity and quality of the recording. EEG data with video was recorded continuously and digitally stored. The cardiopulmonary technologist chief reviewed all automated detections and manual events [...] (Vitamin B-12) tablet 1 (more content not included)...[facility]05-28-2025 Procedure note* Sohail Hernandez MD PhD - 03/14/2025 11:39 AM EDT Images from the original note were not included. [facility]Y [facility] EEG LABORATORY [address] [place] [id number] CONTINUOUS LONG-TERM VIDEO EEG MONITORING REPORT Patient Name: Reema Shah : 1975 Date of Study: 03/14/2025 Duration Recorded: 23:33:07 EEG#: [id number] SUPERVISOR MICROBIOLOGY TECHNOLOGISTS: Eagle Wilkerson & Janet Curtis (student) PROVIDER REQUESTING STUDY: Dr. Hernandez REASON FOR EXAM: Evaluate for seizures DIAGNOSIS TAG: Transient Neurologic Symptoms (TNS) HISTORY: Reema Shah is a 49 y.o. female with history of significant for mood disorder, borderline personality disorder, psoriasis, and epilepsy since Jun 10, 1994 while at the [facility] when she experienced a convulsion. Previous provider ([facility]) followed her for kidney problems since age [...] study with video was carried out at [facility]. Scalp electrodeswere positioned in person by an cardiopulmonary technologist chief, following patient education, according to the 10-20 International system of electrode placement and maintained for integrity and quality of the recording. EEG data with video was recorded continuously and digitally stored. The cardiopulmonary technologist chief reviewed all automated detections and manual events [...] 5-40 mL IntraVENous PRN Srinivasa Luevano MD [facility] HospitalHdsxor27-34-2095 NoteHospitalist Progress Note 03/14/2025 Subjective: Admit Date: 03/13/2025 PCP: Jeanie Ayala Room#: [id number]/N3346 A Chief complaint: seizure disorder BRIEF HOSPITAL [...] Date - 1-2 days - [facility] [place] - Pending the following - neurology recs Total time spent (which include face to face and non face to face encounters) : minutes Toxic drug monitoring/narrow therapeutic index drug monitoring : # Drug name : # Route administered : # Method of monitoring : Extended Emerge (more content not included)...[facility]05-28-2025 Plan of care note* Care Plan - [...] 03/13/20252217 by Ruth Topete RN Outcome: Progressing [facility] HospitalWpapjn34-10-7388 Plan of care note* Care Plan - [...] integrity is maintained or improved Outcome: Progressing [facility] [id number] [facility] EPILEPSY CENTER & EEG LABORATORY [address] [place] [address] CONTINUOUS LONG-TERM VIDEO EEG MONITORING REPORT Patient Name: Reema Shah : 1975 Date of Study: 03/13/25 Duration Recorded: 12:01:35 EEG#: [id number] SUPERVISOR MICROBIOLOGY TECHNOLOGISTS: Eagle Wilkerson & Janet Curtis (student) PROVIDER REQUESTING STUDY: Dr. Hernandez REASON FOR EXAM: Evaluate for seizures DIAGNOSIS TAG: Transient Neurologic Symptoms (TNS) HISTORY: Reema Shah is a 49 y.o. female with history of significant for mood disorder, borderline personality disorder, psoriasis, and epilepsy since Jun 10, 1994 while at the [facility] when she experienced a convulsion. Previous provider ([facility]) followed her for kidney problems since age [...] study with video was carried out at [facility]. Scalp electrodes were positioned in person by an cardiopulmonary technologist chief, following patient education, according to the 10-20 International system of electrode placement and maintained for integrity and quality of the recording. EEG data with video was recorded continuously and digitally stored. The cardiopulmonary technologist chief reviewed all automated detections and manual events [...] ER) 24 hr t (more content not included)...[facility]05-27-2025 Procedure note* Sohail Hernandez MD PhD - 03/13/2025 1:57 PM EDT Images from the original note were not included. [facility] EPILEPSY CENTER & EEG LABORATORY [address] [place] [address] CONTINUOUS LONG-TERM VIDEO EEG MONITORING REPORT Patient Name: Reema Shah : 1975 Date of Study: 03/13/25 Duration Recorded: 12:01:35 EEG#: [id number] SUPERVISOR MICROBIOLOGY TECHNOLOGISTS: Eagle Wilkerson & Janet Curtis (student) PROVIDER REQUESTING STUDY: Dr. Hernandez REASON FOR EXAM: Evaluate for seizures DIAGNOSIS TAG: Transient Neurologic Symptoms (TNS) HISTORY: Reema Shah is a 49 y.o. female with history of significant for mood disorder, borderline personality disorder, psoriasis, and epilepsy since Jun 10, 1994 while at the [facility] when she experienced a convulsion. Previous provider ([facility]) followed her for kidney problems since age [...] study with video was carried out at [facility]. Scalp electrodeswere positioned in person by an cardiopulmonary technologist chief, following patient education, according to the 10-20 International system of electrode placement and maintained for integrity and quality of the recording. EEG data with video was recorded continuously and digitally stored. The cardiopulmonary technologist chief reviewed all automated detections and manual events [...] 5-40 mL IntraVENous PRN Srinivasa Luevano MD [facility] [id number] History and physical note* Srinivasa Luevano MD [...] Resource Strain: Low Risk (06/05/2024) Received from [facility] Overall Financial Resource Strain (CARDIA) Difficulty of Paying Living Expenses: Not very hard Food Insecurity: No Food Insecurity (06/05/2024) Received from [facility] Hunger Vital Sign Worried About Running Out of Food in the Last Year: Never true Ran Out of Food in the Last Year: Never true Transportation Needs: No Transportation Needs (06/05/2024) Received from [facility] PRAPARE - Transportation Lack of Transportation (Medical): No Lack of Transportation (Non-Medical): No Physical Activity: Not on file Stress: Not on file Social Connections: Not on file Intimate Partner Violence: Not At Risk (06/05/2024) Received from [facility] Humiliation, Afraid, Rape, and Kick questionnaire Fear of Current or Ex-Partner: No Emotionally Abused: No Physically Abused: No Sexually Abused: No Housing Stability: Low Risk (06/05/2024) Received from [facility] Housing Stability Vital Sign Unable to [...] - facility - Pending the following - call center consultant recs Total time spent (which include face to face and non face to face encounters) : 90 minutes. Extended Emergency Contact Information Primary Emergency Contact: Ko Perea Relation: Father Insole Stiffener needed? No ADVANCED CARE PLANNING Reema Shah : 1975 Primary Care Physician: Jeanie Ayala The patient and/or family/surrogate voluntarily agreed to participate in ACP services. Patient s cognitive capacity: AOx3 Code Status: [X] [FULL CODE - Continue all advanced life support: CPR,intubation,invasive procedures] [_] [DNR-CCA - DO NOT do CPR, intubation] [_] [DNR-ELECTRIC SIGN WIRER - Comfort care only] [_] DNR form [was/was not] signed Total time spent: 0 minutes were spent discussing the patient's resuscitation status, advance care planning, and end of life care, with patient and/or family/surrogate. Srinivasa Luevano MD Division of Hospitalist Medicine [facility] [1] Past Medical History: Diagnosis Date [...] 5-40 mL, 5-40 mL, IntraVENous, q12h, Srinivasa Leuvano MD sodium chloride 0.9% (NS) flush 5-40 [...] Rash and Unknown Tramadol Rash and Unknown [facility] [id number] NoteAttending History and Physical Admit Date: 03/13/2025 [...] Resource Strain: Low Risk (06/05/2024) Received from [facility] Overall Financial Resource Strain (CARDIA) Difficulty of Paying Living Expenses: Not very hard Food Insecurity: No Food Insecurity (06/05/2024) Received from [facility] Hunger Vital Sign Worried About Running Out of Food in the Last Year: Never true Ran Out of Food in the Last Year: Never true Transportation Needs: No Transportation Needs (06/05/2024) Received from [facility] PRAPARE - Transportation Lack of Transportation (Medical): No Lack of Transportation (Non-Medical): No Physical Activity: Not on file Stress: Not on file Social Connections: Not on file Intimate Partner Violence: Not At Risk (06/05/2024) Received from [facility] Humiliation, Afraid, Rape, and Kick questionnaire Fear of Current or Ex-Partner: No Emotionally Abused: No Physically Abused: No Sexually Abused: No Housing Stability: Low Risk (06/05/2024) Received from [facility] Housing Stability Vital Sign Unable to [...] and 1x CAT3) Asses (more content not included)...[facility]-27[facility] History and physical note* Srinivasa Luevano MD [...] Resource Strain: Low Risk (06/05/2024) Received from [facility] Overall Financial Resource Strain (CARDIA) Difficulty of Paying Living Expenses: Not very hard Food Insecurity: No Food Insecurity (06/05/2024) Received from [facility] Hunger Vital Sign Worried About Running Out of Food in the Last Year: Never true Ran Out of Food in the Last Year: Never true Transportation Needs: No Transportation Needs (06/05/2024) Received from [facility] PRAPARE - Transportation Lack of Transportation (Medical): No Lack of Transportation (Non-Medical): No Physical Activity: Not on file Stress: Not on file Social Connections: Not on file Intimate Partner Violence: Not At Risk (06/05/2024) Received from [facility] Humiliation, Afraid, Rape, and Kick questionnaire Fear of Current or Ex-Partner: No Emotionally Abused: No Physically Abused: No Sexually Abused: No Housing Stability: Low Risk (06/05/2024) Received from [facility] Housing Stability Vital Sign Unable to [...] - facility - Pending the following - call center consultant recs Total time spent (which include face to face and non face to face encounters) : 90 minutes. Extended Emergency Contact Information Primary Emergency Contact: Ko Perea Relation: Father Insole Stiffener needed? No ADVANCED CARE PLANNING Reema Shah : 1975 Primary Care Physician: Jeanie Ayala The patient and/or family/surrogate voluntarily agreed to participate in ACP services. Patient s cognitive capacity: AOx3 Code Status: [X] [FULL CODE - Continue all advanced life support: CPR,intubation,invasive procedures] [_] [DNR-CCA - DO NOT do CPR, intubation] [_] [DNR-ELECTRIC SIGN WIRER - Comfort care only] [_] DNR form [was/was not] signed Total time spent: 0 minutes were spent discussing the patient's resuscitation status, advance care planning, and end of life care, with patient and/or family/surrogate. Srinivasa Luevano MD Division of Hospitalist Medicine [facility] [1] Past Medical History: Diagnosis Date [...] Tramadol Rash and Unknown documented in this [facility]05-27-2025 Consult note* Geovanny Oliveira APRN - CHAYA - 03/13/2025 11:20 AM EDT Images from the original note were not included. Department of Neurological Sciences Section of Epilepsy INITIAL CONSULT NOTE ID: Reema Shah is a 49 y.o. female with history of mood disorder, borderline personality disorder, psoriasis, and epilepsy since Jun 10, 1994 while at the [facility] when she experienced aconvulsion. She is admitted [...] Sensory: Bilaterally intact to light touch. Coordination: Tmfyyz-yf-blpe dysmetria bilaterally. Reflexes: Deferred. Gait: Unable to [...] MD PhD at 03/14/2025 11:42 AM EDT xkoto Phone: [phone] Consult note* LEEROY Prado CNP - 03/13/2025 11:20 AM EDT Images from the original note were not included. Department of Neurological Sciences Section of Epilepsy INITIAL CONSULT NOTE ID: Reema Shah is a 49 y.o. female with history of mood disorder, borderline personality disorder, psoriasis, and epilepsy since Jun 10, 1994 while at the [facility] when she experienced aconvulsion. She is admitted [...] Sensory: Bilaterally intact to light touch. Coordination: Mhetfj-dz-semi dysmetria bilaterally. Reflexes: Deferred. Gait: Unable to [...] 1. Will begin continuous video-EEG monitoring with [employer] q4h and telemetry monitoring in place. 2. [...] 03/14/2025 11:42 AM EDT documented in this [facility]05-05-2025 History of Present illness Narrative* Mee Perez NP - 02/19/2025 1:00 PM EDT Images from the original note were not included. Department of Neurological Sciences Section of Epilepsy [facility] NEUROLOGY [address] [facility] [address] Dept: [phone] Dept Loc: [phone] . Visit type: follow-up Reason for Visit: Follow-up and Seizures (No new seizures to report) Objective HPI The patient is a 49 y.o. who lives at [facility] with a PMH significant for mood disorder, borderline personality disorder, psoriasis, and epilepsy since Jun 10, 1994 while at the [facility] when she experienced a convulsion. Previous provider ([facility]) followed her for kidney problemssince age 25 [...] alleviate these symptoms. She currently resides at [facility]. Prior History: Her fall frequency has worsened [...] Wrist flexion Wrist extension Finger extension Hand double end tenon operator Finger abduction RUE Absent 5 5 5 5 5 5 LUE Absent 5 5 5 5 5 5 Drift Hip flexion Knee extension Knee flexion Foot dorsiflexion Toe dorsiflexion Plantar flexion RLE 5 5 5 5 5 LLE 5 5 5 5 5 Fine Motor: no difficulty with finger-tapping Sensory: Bilaterally intact to light touch. Double simultaneous stimulation without extinction. Romberg absent. Coordination: Ztkesp-iy-xbso without dysmetria bilaterally. Reflexes: Deferred Gait: on [...] since Jun 10, 1994 while at the [facility] when she experienced a convulsion. Previous provider ([facility]) followed her for kidney problems since age 25 now with improved renal function. She reports her last EEG was several years ago at [facility]. Her fall frequency has worsened recently. She [...] unsuccessful scheduling attempts. She currently resides at [facility]. We went over her brought- in lab reports and reviewed all her medications. Her triglyceride level is high, vitamin D level was 16, low. BUN and Creatinine level slightly elevated. Plan: Re-order cvEEG/EMU admission. Continue current anti-epileptic medications; printed prescriptions provided. 1. Focal epilepsy with impairment of consciousness, intractable (HCC) - EEG PENITENTIARY MONITORING 2 - 3 DAY EVAL - [...] po QPM, Print She currently resides at [facility]. Please call [phone] to schedule EEG. Follow up in about 2 months (around 04/21/2025). Education Mee Perez NP Epilepsy Clinic Outpatient Progress Note & Billing by Time (2020 NA Guidelines): Time: (All time spent by provider-only, including documentation, for pre-/wvlc-ae-opad/post- visit on the day of the visit ending at midnight on same day of visit). Encounter Code Level Time Spent (min) New Patient [id number] 15-29 75737 30-44 35491 45-59 71219 60-74 Established Patient [id number] 10-19 56046 20-29 18730 30-39 79223 40-54 Preparing for visit (review testing/procedures/notes) (min) Obtaining history (minutes) 15 Counseling, educating patient/family (minutes) 15 Ordering testing (minutes) Communicating with other providers (minutes) Charting (minutes) 15 Independently interpreting/documenting results (minutes) Communicating test results to patient/family (minutes) Total Time Today (min) = 45 documented in this encounterSMemorial HospitalKhwmsz54-74-6944 Telephone encounter Note* Telephone Encounter - Latesha Krause MA - 01/26/2025 12:46 PM EDT Spoke with Tanesha and let her know providers message. [facility] HospitalXaieew88-73-0792 Miscellaneous Notes* Telephone Encounter - Latesha Krause [...] Name of caller: Tanesha Contact phone number: [phone] Relationship to Patient: Maddie mendez [facility] Provider: Dr. Chopra Practice: [facility] Neurology [place] Chief Complaint/Reason for Call: Tanesha states that [...] return their call: Yes documented in this encounterSMemorial HospitalHxzrdp72-97-7314 Telephone encounter Note* Telephone Encounter - Valentina Chopra MD - 01/26/2025 12:32 PM EDT Tell them ok, but I am not a fan of her getting that first dose before she is up for the day. [facility] [id number] Telephone encounter Note* Telephone Encounter - Khalida Drake - 01/26/2025 10:17 AM EDT Name of caller: Tanesha Contact phone number: [phone] Relationship to Patient: Maddie mendez [facility] Provider: Dr. Chopra Practice: [facility] Neurology [place] Chief Complaint/Reason for Call: Tanesha states that [...] business hours to return their call: Yes [facility] HospitalMrfwho32-27-9503 History of Present illness Narrative* Valentina Chopra MD - 01/25/2025 2:20 PM EDT Images from the original note were not included. [facility] [address] [facility] [address] Dept: [phone] Dept Loc: [phone] Valentina Chopra MD CHIEF COMPLAINT: Chief Complaint [...] Anxiety, Chronic kidney disease, Epilepsy ([facility]), Essential hypertension, Gastro-esophageal reflux disease without esophagitis, Hypokalemia, Hypothyroidism, Obesity, Personal history of urinary (tract) infections, Psoriasis, Repeated falls, and Thrombocytopenia ([facility]). Past Surgical History: has a past surgical [...] Resource Strain: Low Risk (06/05/2024) Received from [facility] Overall Financial Resource Strain (CARDIA) Difficulty of Paying Living Expenses: Not very hard Food Insecurity: No Food Insecurity (06/05/2024) Received from [facility] Hunger Vital Sign Worried About Running Out of Food in the Last Year: Never true Ran Out of Food in the Last Year: Never true Transportation Needs: No Transportation Needs (06/05/2024) Received from [facility] PRAPARE - Transportation Lack of Transportation (Medical): No Lack of Transportation (Non-Medical): No Physical Activity: Not on file Stress: Not on file Social Connections: Not on file Intimate Partner Violence: Not At Risk (06/05/2024) Received from [facility] Humiliation, Afraid, Rape, and Kick questionnaire Fear of Current or Ex-Partner: No Emotionally Abused: No Physically Abused: No Sexually Abused: No Housing Stability: Low Risk (06/05/2024) Received from [facility] Housing Stability Vital Sign Unable to [...] of the exam. 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 Summary: [...] CT Brain, 15 May 2021 ACCESSION NUMBER(S): [id number] ORDERING CLINICIAN: LARRY EUGENE TECHNIQUE: CT of [...] Type of Exam?:Initial COMPARISON: CT brain from [place] of 12/01/2020. TECHNIQUE: Noncontrast CT of the [...] suspicious change from 12/01/2020 CT brain at [place]. Nini Garcia MD - 12/22/2022 Patient Name: REEMA SHAH STUDY: CT HEAD WO CONTRAST; 08/24/2022 7:43 am INDICATION: fall, history of thrombocytopenia, abrasion L parietal scalp . COMPARISON: 05/09/2022 ACCESSION NUMBER(S): [id number] ORDERING CLINICIAN: ANDRES HUSSEIN TECHNIQUE: Unenhanced CT [...] head injury . COMPARISON: 11/26/2022 ACCESSION NUMBER(S): [id number] ORDERING CLINICIAN: LARRY EUGENE TECHNIQUE: Noncontrast axial [...] head injury . COMPARISON: None. ACCESSION NUMBER(S): [id number] ORDERING CLINICIAN: LARRY EUGENE TECHNIQUE: Axial CT [...] unspecified COMPARISON: CT head 01/21/2023 ACCESSION NUMBER(S): [id number] ORDERING CLINICIAN: CAREN GILMAN TECHNIQUE: Noncontrast CT [...] and arranging for studies. documented in this [facility]02-21-2025 History of Present illness Narrative* Sohail Hernandez MD PhD - 12/08/2024 2:00 PM EST Images from the original note were not included. Department of Neurological Sciences Section of Epilepsy [facility] NE[facility] [address] [facility] [address] Dept: [phone] Dept Loc: [phone] . Visit type: follow-up Reason for Visit: Follow-up and Seizures (Had a seizures last night lasted 10 minutes ) Objective HPI The patient is a 49 y.o. who lives at [facility] with a PMH significant for mood disorder, borderline personality disorder, psoriasis, and epilepsy since Jun 10, 1994 while at the [facility] when she experienced a convulsion. Previous provider ([facility]) followed her for kidney problemssince age 25 [...] Wrist flexion Wrist extension Finger extension Hand double end tenon operator Finger abduction RUE Absent 5 5 5 5 5 5 LUE Absent 5 5 5 5 5 5 Drift Hip flexion Knee extension Knee flexion Foot dorsiflexion Toe dorsiflexion Plantar flexion RLE 5 5 5 5 5 LLE 5 5 5 5 5 Fine Motor: no difficulty with finger-tapping Sensory: Bilaterally intact to light touch. Double simultaneous stimulation without extinction. Romberg absent. Coordination: Xuzgjg-bo-gavx without dysmetria bilaterally. Reflexes: Deferred Gait: on [...] since Jun 10, 1994 while at the [facility] when she experienced a convulsion. Previous provider ([facility]) followed her for kidney problems since age 25 now with improved renal function. She reports her last EEG was several years ago at [facility]. Her fall frequency has worsened recently. She [...] impairment of consciousness, intractable (HCC) - EEG PENITENTIARY MONITORING 2 - 3 DAY EVAL Please do not call patient's father when scheduling admission, but rather Pam at [facility] [phone] Follow up in about 2 months (around 02/05/2025). Education Sohail Hernandez MD PhD Epilepsy Clinic Outpatient Progress Note & Billing by Time (2020 NA Guidelines): Time: (All time spent by provider-only, including documentation, for pre-/tipm-ye-ngyl/post- visit on the day of the visit ending at midnight on same day of visit). Encounter Code Level Time Spent (min) New Patient 10042 15-29 49829 30-44 51004 45-59 55870 60-74 Established Patient [id number] 10-19 49893 20-29 91673 30-39 23852 40-54 Preparing for visit (review testing/procedures/notes) (min) Obtaining history (minutes) 15 Counseling, educating patient/family (minutes) 15 Ordering testing (minutes) Communicating with other providers (minutes) Charting (minutes) 15 Independently interpreting/documenting results (minutes) Communicating test results to patient/family (minutes) Total Time Today (min) = 45 documented in this [facility]01-13-2025 Telephone encounter Note* Telephone Encounter - Ellen Tompkins - 10/30/2024 2:42 PM EST We have been unable to reach your patient to schedule their testing. Test Name: EEG Fpc Monitoring 2-3 Day Eval 1st Attempt: 10/26 Called patient, no answer, mailbox full unable to leave message. 2nd Attempt: 10/27 Called patient, no answer, mailbox full, unable to leave message 3rd Attempt: 10/30 Called patient, no answer, left voicemail [facility] HospitalEbyxnv80-86-1289 Miscellaneous Notes* Telephone Encounter - Ellen Tompkins - 10/30/2024 2:42 PM EST We have been unable to reach your patient to schedule their testing. Test Name: EEG Fpc Monitoring 2-3 Day Eval 1st Attempt: 10/26 Called patient, no answer, mailbox full unable to leave message. 2nd Attempt: 10/27 Called patient, no answer, mailbox full, unable to leave message 3rd Attempt: 10/30 Called patient, no answer, left voicemail documented in this encounterSMemorial HospitalBwfvqu15-93-3304 History of Present illness Narrative* Sohail Hernandez MD PhD - 10/26/2024 11:30 AM EST Images from the original note were not included. Department of Neurological Sciences Section of Epilepsy [facility] [address] [facility] [address] Dept: [phone] Dept Loc: [phone] . Visit type: follow-up Reason for Visit: Follow-up and Seizures (No new seizures to report) Objective HPI The patient is a 49 y.o. who lives at [facility] with a H significant for mood disorder, borderline personality disorder, psoriasis, and epilepsy since Jun 10, 1994 while at the [facility] when she experienced a convulsion. Previous provider ([facility]) followed her for kidney problemssince age 25 [...] Wrist flexion Wrist extension Finger extension Hand double end tenon operator Finger abduction RUE Absent 5 5 5 5 5 5 LUE Absent 5 5 5 5 5 5 Drift Hip flexion Knee extension Knee flexion Foot dorsiflexion Toe dorsiflexion Plantar flexion RLE 5 5 5 5 5 LLE 5 5 5 5 5 Fine Motor: no difficulty with finger-tapping Sensory: Bilaterally intact to light touch. Double simultaneous stimulation without extinction. Romberg absent. Coordination: Bcqwhq-oq-wrws without dysmetria bilaterally. Reflexes: Deferred Gait: on a chart Data Reviewed and Summarized Labs: reviewed Imaging/Testing: Assessment and Plan Epilepsy Classification: epilepsy NOS Etiology: structural Mood: euthymic Comorbidities: mood disorder The patient is a 49 right handed y.o. who returns for mood disorder, borderline personality disorder, psoriasis, and epilepsy since Jun 10, 1994 while at the [facility] when she experienced a convulsion. Previous provider ([facility]) followed her for kidney problems since age 25 now with improved renal function. She reports her last EEG was several years ago at [facility]. Her fall frequency has worsened recently. She [...] impairment of consciousness, intractable (HCC) - EEG PENITENTIARY MONITORING 2 - 3 DAY EVAL Will not change her ASM at this time. No follow-ups on file. Education Sohail Hernandez MD PhD Epilepsy Clinic Outpatient Progress Note & Billing by Time (2020 NA Guidelines): Time: (All time spent by provider-only, including documentation, for pre-/jtpq-jl-znwf/post- visit on the day of the visit ending at midnight on same day of visit). Encounter Code Level Time Spent (min) New Patient [id number] 15-29 24304 30-44 20039 45-59 24464 60-74 Established Patient 11731 10-19 87515 20-29 19956 30-39 09059 40-54 Preparing for visit (review testing/procedures/notes) (min) Obtaining history (minutes) 15 Counseling, educating patient/family (minutes) 15 Ordering testing (minutes) Communicating with other providers (minutes) Charting (minutes) 15 Independently interpreting/documenting results (minutes) Communicating test results to patient/family (minutes) Total Time Today (min) = 45 documented in this [facility]11-13-2024 History of Present illness Narrative* Gayatri Bobby PA-C - 08/30/2024 3:00 PM EST DATE OF SERVICE: 08/30/2024 PATIENT NAME: Reema Shah : 1975 AGE: 48 y.o. CLINIC NUMBER: [id number] Visit type: Established patient Chief Complaint Patient [...] on face, armpits, groin. Risks associated with intermediate topical steroid use reviewed in detail. Patient [...] PA-C 08/30/24 3:36 PM documented in this [facility]10-01-2024 History of Present illness Narrative* Valentina Chopra MD - 07/18/2024 1:00 PM EDT [facility] [address] [facility] [address] [facility] [address] Dept: [phone] Dept Loc: [phone] Valentina Chopra MD CHIEF COMPLAINT: Chief Complaint [...] fallen. She reports that she was in [facility] in [place]. She reports that she ended up in [...] Anxiety, Chronic kidney disease, Epilepsy ([facility]), Essential hypertension, Gastro-esophageal reflux disease without esophagitis, Hypokalemia, Hypothyroidism, Obesity, Personal history of urinary (tract) infections, Psoriasis, Repeated falls, and Thrombocytopenia ([facility]). Past Surgical History: has a past surgical [...] Resource Strain: Low Risk (06/05/2024) Received from [facility] Overall Financial Resource Strain (CARDIA) Difficulty of Paying Living Expenses: Not very hard Food Insecurity: No Food Insecurity (06/05/2024) Received from [facility] Hunger Vital Sign Worried About Running Out of Food in the Last Year: Never true Ran Out of Food in the Last Year: Never true Transportation Needs: No Transportation Needs (06/05/2024) Received from [facility] PRAPARE - Transportation Lack of Transportation (Medical): No Lack of Transportation (Non-Medical): No Physical Activity: Not on file Stress: Not on file Social Connections: Not on file Intimate Partner Violence: Not At Risk (06/05/2024) Received from [facility] Humiliation, Afraid, Rape, and Kick questionnaire Fear of Current or Ex-Partner: No Emotionally Abused: No Physically Abused: No Sexually Abused: No Housing Stability: Low Risk (06/05/2024) Received from [facility] Stability Vital Sign Unable to Pay for [...] of the exam. 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 Summary: [...] CT Brain, 15 May 2021 ACCESSION NUMBER(S): [id number] ORDERING CLINICIAN: LARRY EUGENE TECHNIQUE: CT of [...] Type of Exam?:Initial COMPARISON: CT brain from [place] of 12/01/2020. TECHNIQUE: Noncontrast CT of the [...] suspicious change from 12/01/2020 CT brain at [place]. Nini Garcia MD - 12/22/2022 Patient Name: REEMA SHAH STUDY: CT HEAD WO CONTRAST; 08/24/2022 7:43 am INDICATION: fall, history of thrombocytopenia, abrasion L parietal scalp . COMPARISON: 05/09/2022 ACCESSION NUMBER(S): [id number] ORDERING CLINICIAN: ANDRES HUSSEIN TECHNIQUE: Unenhanced CT [...] head injury . COMPARISON: 11/26/2022 ACCESSION NUMBER(S): [id number] ORDERING CLINICIAN: LARRY EUGENE TECHNIQUE: Noncontrast axial [...] head injury . COMPARISON: None. ACCESSION NUMBER(S): [id number] ORDERING CLINICIAN: LARRY EUGENE TECHNIQUE: Axial CT [...] unspecified COMPARISON: CT head 01/21/2023 ACCESSION NUMBER(S): [id number] ORDERING CLINICIAN: CAREN GILMAN TECHNIQUE: Noncontrast CT [...] 25 mcg/mL <3 Low Levetiracetam Level Order: [id number] Component Ref Range & Units 7 mo [...] meds, I placed her on benzos. 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 documented in this [facility]09-24-2024 Telephone encounter Note* Telephone Encounter - Latesha Sparks - 07/11/2024 11:11 AM EDT We have been unable to reach your patient to schedule their testing. Test Name: eeg intermediate 1st Attempt: 07/07 2nd Attempt: 07/10 3rd attempt; 07/11 left message with tera from the nursing facility who states she will take and give to nursing staff. Vanda was notified this is for mainly documentation. [id number] Miscellaneous Notes* Telephone Encounter - Latesha Sparks - 07/11/2024 11:11 AM EDT We have been unable to reach your patient to schedule their testing. Test Name: eeg intermediate 1st Attempt: 07/07 2nd Attempt: 07/10 3rd attempt; 07/11 left message with tera from the nursing facility who states she will take and give to nursing staff. Vanda was notified this is for mainly documentation. documented in this [place] [address]-20-2024 History of Present illness Narrative* Sohail Hernandez MD PhD - 07/07/2024 11:30 AM EDT Images from the original note were not included. Department of Neurological Sciences Section of Epilepsy [facility] NE[facility] [address] [facility] [address] Dept: [phone] Dept Loc: [phone] . Visit type: follow-up Reason for Visit: New Patient (New Patient referred to us by Dr. Chopra for seizures. Last seizure was in March of 2024 and went to [facility] ED in [place].) Per Dr Chopra (who had been following [...] is a 48 y.o. who lives at [facility] with a PMH significant for mood disorder, borderline personality disorder, psoriasis, and epilepsy since Jun 10, 1994 while at the [facility] when she experienced a convulsion. Previous provider ([facility]) followed her for kidney problemssince age 25 [...] Wrist flexion Wrist extension Finger extension Hand double end tenon operator Finger abduction RUE Absent 5 5 5 5 5 5 LUE Absent 5 5 5 5 5 5 Drift Hip flexion Knee extension Knee flexion Foot dorsiflexion Toe dorsiflexion Plantar flexion RLE 5 5 5 5 5 LLE 5 5 5 5 5 Fine Motor: no difficulty with finger-tapping Sensory: Bilaterally intact to light touch. Double simultaneous stimulation without extinction. Romberg absent. Coordination: Krohns-mm-bhua without dysmetria bilaterally. Able to perform rapid [...] since Jun 10, 1994 while at the [facility] when she experienced a convulsion. 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 Follow up in about 3 months (around 10/06/2024). Education Sohail Hernandez MD PhD Epilepsy Clinic Outpatient Progress Note & Billing by Time (2020 NA Guidelines): Time: (All time spent by provider-only, including documentation, for pre-/gyqe-qd-dmtv/post- visit on the day of the visit ending at midnight on same day of visit). Encounter Code Level Time Spent (min) New Patient 63629 15-29 66131 30-44 31336 45-59 47871 60-74 Established Patient 15217 10-19 98759 20-29 53347 30-39 49883 40-54 Preparing for visit (review testing/procedures/notes) (min) Obtaining history (minutes) 30 Counseling, educating patient/family (minutes) 15 Ordering testing (minutes) Communicating with other providers (minutes) Charting (minutes) 30 Independently interpreting/documenting results (minutes) Communicating test results to patient/family (minutes) Total Time Today (min) = 75 documented in this [facility]08-30-2024 [facility] [place] PATIENT: Reema Shah DATE / TIME: 06/16/24 [...] Component Case Report Surgical Pathology Report Case: [id number] Authorizing Provider: Raúl Hudson MD Collected: 06/05/2024 04:36 PM Ordering Location: [facility] Periop Received: 06/06/2024 07:48 AM Pathologist: Salma [...] needed AUTHENTICATED BY RAÚL HUDSON, ON 06/16/2024 14:13:27[facility] 06-16-2024 History of Present illness Narrative* Raúl Hudson MD - 06/16/2024 2:06 PM EDT [facility] [place] PATIENT: Reema Shah DATE / TIME: 06/16/24 [...] Component Case Report Surgical Pathology Report Case: [id number] Authorizing Provider: Raúl Hudson MD Collected: 06/05/2024 04:36 PM Ordering Location: [facility] Periop Received: 06/06/2024 07:48 AM Pathologist: Salma [...] can follow-up as needed documented in this [id number] History of Present illness Narrative* Aviva Benedict - 06/06/2024 4:14 PM EDT Images from the original note were not included. Medical Transportation set up by CTS per hospital request: Date:06/06/24Wednesday Time:5:30pm Destination: [place] [id number] Company:[employer] [phone] Special needs/equipment:N/A Truck Type: Ambulance Companies called: [...] CTS per hospital request: Date:06/06/24Wednesday Time:5:30pm Destination: [place] [address] Company: [email or web address] ([phone]) Special needs/equipment:N/A Truck Type: Ambulance Companies called: [...] A : Post Acute Patient Choice 1: [facility] Discharging Transportation Plan: Discharge Plan Status: pend dc today Assessment and Background Information: Per MIX HOUSE TENDER, plan is for pt to discharge back to [facility] today. Pt aware and provided SNF list so if she wants to switch SNF's she can work on it from [facility]. Pt voices no further questions/concerns/needs and requests transport be after dinner. Ambulance transport requested. CM to follow. Addendum 1520 Transport is set up for 1729 and form printed to floor. Treatment team updated. [place], CAITLYN, updated [facility]. * Raúl Hudson MD - 06/06/2024 9:49 [...] Hernandez CNP - 06/06/2024 9:44 AM EDT [place] [facility] DAILY PROGRESS NOTE SURGICAL PROBLEM Appendicitis ASSESSMENT & PLAN/ACTIVE MEDICAL PROBLEMS: Appendicitis POD 1 laparoscopic appendicitis Tolerating reg diet, no nausea or emesis Abdomen tender as to be expected, lap sites well approximated Afebrile - okay from surgery standpoint to pa, follow up in 1-[address] [...] note with the relevant labs, studies, and call center consultant notes. I have reviewed and agree with the documented history, exam, and plan of care. The below note includesmy discussion, exams, and review of relevant labs and imaging. See my note * Ruth Blanca CNP - 06/05/2024 2:19 PM EDT [facility] [place] -- [facility] Patient Name: Reema Shah : 1975 MR #: [id number] Admit Date: 06/04/2024 Physicians: Jyoti Gupta MD (Family); No ref. provider found (Referring) Reema Shah is a 48 y.o. female patient of Jeanie Ayala MD with history of Thrombocytopenia, anxiety, CKD, CHF, depression, epilepsy, fatty liver, gastritis, MR, MELQUIADES, stroke, tremor presented to [facility] with abdominal pain. Acute appendicitis Admit to [...] normal mood and affect documented in this [id number] NoteHMS DISCHARGE SUMMARY -- [facility] Reema Shah Admitted: 06/04/2024 Discharge Date: 06/06/24 PCP Handoff Recommended Outpatient Testing None Results Pending At Discharge none Clinical Summary Reema Shah is a 48 y.o. female patient of Jeanie Ayala MD with history of Thrombocytopenia, anxiety, CKD, CHF, depression, epilepsy, fatty liver, gastritis, MR, MELQUIADES, stroke, tremor presented to [facility] with abdominal pain. Diagnosed with acute appendicitis. Lap appendectomy on 06/05, tolerated well. Per trauma team patient is reluctant to return to [place] and has complaints about mobility. manager qa discussed with patient that she has just been at [place] one day, and she will need to return and discuss options with their POWER SEWING MACHINE OPERATOR. During evaluation pt complained of kidney pain [...] . Quantity: 6 mL naloxone 4 mg/actuation Com[place] Commonly known as: NARCAN Administer 1 spray [...] gums as needed . (more content not included)...[facility]08-20-2024 Hospital course Narrative* Ruth Blanca CNP - 06/06/2024 2:11 PM EDT [facility] DIS[facility] -- [facility] Reema Shah Admitted: 06/04/2024 Discharge Date: 06/06/24 PCP Handoff Recommended Outpatient Testing None Results Pending At Discharge none Clinical Summary Reema Shah is a 48 y.o. female patient of Jeanie Ayala MD with history of Thrombocytopenia, anxiety, CKD, CHF, depression, epilepsy, fatty liver, gastritis, MR, MELQUIADES, stroke, tremor presented to [facility] with abdominal pain. Diagnosed with acute appendicitis. Lap appendectomy on 06/05, tolerated well. Per trauma team patient is reluctant to return to [place] and has complaints about mobility. manager qa [place] and she will need to return and discuss options with their POWER SEWING MACHINE OPERATOR. During evaluation pt complained of kidney pain [...] surgery team NPO Gentle IV hydration IV oy Hudson on 06/05 for surgery lap appy [...] . Quantity: 6 mL naloxone 4 mg/actuation Como Commonly known as: NARCAN Administer 1 spray [...] Follow Up: Raúl Hudson MD [address] [facility] [address] [place] [id number] Schedule an appointment as soon as possible for a visit in 2 week(s) s/p appendectomy [facility] [address] [place] [id number] Condition at Discharge: Stable Disposition: SNF I reviewed discharge recommendations with the patient in person. Patient instructions, including activity, were given to the patient/family at discharge. On day of discharge I saw Reema Shah and spent: > 30 minutes on discharge. Completed by: Ruth Blanca CNP on 06/06/24, 2:11 PM documented in this [id number] NoteGeneral surgery progress note No acute events [...] instructions AUTHENTICATED BY RAÚL HUDSON, ON 06/06/2024 09:53:29[facility] 06-06-2024 Note Attestation signed by Raúl Hudson MD at 06/06/2024 9:54 AM I agree with the Advanced Practice Provider note with the same day of service. The patient was seen and examined by me, the attending surgeon, on rounds on the date of service listed above. I have reviewed the Advanced Practice Provider note with the relevant labs, studies, and call center consultant notes. I have reviewed and agree with the documented history, exam, and plan of care. The below note includes my discussion, exams, and review of relevant labs and imaging. See my note [facility] DA[facility] PROGRESS NOTE SURGICAL PROBLEM Appendicitis ASSESSMENT & PLAN/ACTIVE MEDICAL PROBLEMS: Appendicitis POD 1 laparoscopic appendicitis Tolerating reg diet, no nausea or emesis Abdomen tender as to be expected, lap sites well approximated Afebrile - okay from surgery standpoint to pa, follow up in 1-[address] [...] full AUTHENTICATED BY KINDRA HERNANDEZ, ON 06/06/2024 09:49:41[facility] 06-06-2024 Hospital Discharge instructions* Discharge Instructions* Sondra [...] activity until follow up with the Outpatient Trauma/[facility] office. We suggest you: [...] will have a post-operative visit with a provider service representative of the surgery team. At that appointmentyou will receive instructions on returning to work. Call the Outpatient Trauma/ [facility] office [phone] for advice (Wednesday-Wednesday, 8am to 4pm) or [...] or have bowel movements documented in this [id number] Note* Plan of Care - Jojo Calderón [...] Absence of physical injury Outcome: Partially Met [id number] Miscellaneous Notes* Plan of Care - Jojo [...] OF SURGERY: 06.05.24 SURGEON: Raúl Hudson MD ANTENNA DESIGN ENGINEER(S): none PREOPERATIVE DIAGNOSIS: Acute appendicitis. POSTOPERATIVE DIAGNOSIS: [...] at the base of the mesoappendix. An [place] 45 stapler with a blue cartridge was [...] Clinical impression: normal ECG documented in this [id number] Note* Plan of Care - Mal Olivares [...] Absence of physical injury Outcome: Not Met [id number] Note* Op Note - Raúl Hudson MD - 06/05/2024 4:19 PM EDT OPERATIVE REPORT DATE OF SURGERY: 06.05.24 SURGEON: Raúl Hudson MD ANTENNA DESIGN ENGINEER(S): none PREOPERATIVE DIAGNOSIS: Acute appendicitis. POSTOPERATIVE DIAGNOSIS: [...] at the base of the mesoappendix. An [place] 45 stapler with a blue cartridge was [...] and taken to PACU in good condition. [id number] NoteS PROGRESS NOTE -- [facility] Patient Name: Reema Shah : 1975 MR #: [id number] Admit Date: 06/04/2024 Physicians: Jyoti Gupta MD (Family); No ref. provider found (Referring) Reema Shah is a 48 y.o. female patient of Jeanie Ayala MD with history of Thrombocytopenia, anxiety, CKD, CHF, depression, epilepsy, fatty liver, gastritis, MR, MELQUIADES, stroke, tremor presented to [facility] with abdominal pain. Acute appendicitis Admit to [...] affect AUTHENTICATED BY RUTH BLANCA ON 06/05/2024 14:21:[address] [place] [address] 06-05-2024 Note* Plan of Care - Litzy [...] Absence of physical injury Outcome: Partially Met [id number] Consult note* Destiny Ayers RN - 06/05/2024 11:44 AM EDT Associated Order(s): IP CONSULT TO CARE MANAGEMENT Care Management Consult Note Date: 06/05/2024 Time: 12:18 PM Patient Name: Reema Shah Date of : 1975 Reason for Consult: Discharge Plan: Plan A: Intermediate Care facility Plan A : Post Acute Patient Choice 1: [facility] Discharging Transportation Plan: Discharge Plan Status: pend medical readiness Assessment and Background Information: Per chart, pt is from [facility] and [place], CME, updated. Pt states just transferred from [place] to [facility] 'a couple days ago because I didn't like the director of loss prevention at [facility].' Ptstates plan is return to [place] but would like a SNF list to take with her at pa to see if thereis somewhere else she could transfer to. Pt has 30 bedhold days per [facility]. Pt will need transport to return to [facility] at pa. Pt states was at [facility] in the past. Pt has father and sisterlisted as contacts and would like to keep them on chart, no LW/HPOA on file. CM to follow. 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?: Yes Care Facility Name: [facility] Prior to Admission Home Care Services: No Patient expects to be discharged to:: [facility] Does the patient need discharge transport arranged?: [...] pain:: right side Chronic pain timing:: Constant [id number] Consult note* Destiny Ayers RN - 06/05/2024 11:44 AM EDT Associated Order(s): IP CONSULT TO CARE MANAGEMENT Care Management Consult Note Date: 06/05/2024 Time: 12:18 PM Patient Name: Reema Shah Date of : 1975 Reason for Consult: Discharge Plan: Plan A: Intermediate Care facility Plan A : Post Acute Patient Choice 1: [facility] Discharging Transportation Plan: Discharge Plan Status: pend medical readiness Assessment and Background Information: Per chart, pt is from [facility] and [place], CME, updated. Pt states just transferred from [facility] to [facility] 'a couple days ago because I didn't like the director of loss prevention at [facility].' Ptstates plan is return to [facility] but would like a SNF list to take with her at pa to see if thereis somewhere else she could transfer to. Pt has 30 bedhold days per [facility]. Pt will need transport to return to [facility] at pa. Pt states was at [facility] in the past. Pt has father and sisterlisted as contacts and would like to keep them on chart, no LW/HPOA on file. CM to follow. 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?: Yes Care Facility Name: [facility] Prior to Admission Home Care Services: No Patient expects to be discharged to:: [facility] Does the patient need discharge transport arranged?: [...] Richards CNP - 06/04/2024 11:52 PM EDT [place] [facility] SURGICAL HISTORY & PHYSICAL/CONSULTATION NOTE [...] History: Diagnosis Date Acquired thrombocytopenia ([facility]) [facility] Acute kidney injury ([facility]) 05/22/2018 [facility]/Jonatan Chiu DO Anxiety Arm abrasion 06/19/2019 INFO GAINED FROM: /[facility] ED VISIT NOTE --- AC GAO MD Calcaneal spur of right foot 2016 Documented on x-ray CKD (chronic kidney disease) Congestive heart failure (CHF) ([facility]) [facility] Contusion, hip 06/19/2019 INFO GAINED FROM: /[facility] ED VISIT NOTE --- AC GAO MD Depression Epilepsy ([facility]) 08/06/2011 [facility]- Dr. Chopra Epilepsy ([facility]) 1994 Facet degeneration of lumbar region 10/14/2018 [facility]/Jono ALEXIS, Saulius Mild facet degenerative changes seen in the lower lumbar spine Fatty liver [facility]/Joe Mendieta MD Mild fibrofatty changes of the liver Fluid collection (edema) in the arms, legs, hands and feet 03/09/2018 Dr valentina Chopra Gastritis determined by endoscopy 12/29/2016 Dr. GonzalezPwnbjy-Qkhjjoldw-shwhrmjsuaukd nonbleeding with biopsy 1 para 1 Hepatic steatosis [facility]/Heidy Jara MD Mild Hiatal hernia 12/29/[address] Lobo grade 4 Hypercholesterolemia [facility]/Jonatan Chiu DO Hypertension 2000 2000-present Insomnia [facility] Kidney stone [facility] Laceration of head 06/19/2019 INFO GAINED FROM: /[facility] ED VISIT NOTE --- MENG ALEXIS,AC Escobar Lung nodule 12/15/2017 0.5 cm pleural based nodule in right middle lobe. Mild linear atelectasis Mitral valve prolapse [facility] Motor seizure (HCC) 03/16/2019 INFO GAINED FROM: /[facility] ED VISIT --- BLAKE STEELE,CAREN Rectus diastasis [facility]/Heidy Jara MD Present with small wide necked perumbical ventral containing fat. Second degree burn of foot 04/23/2018 Right Foot - [facility] Sleep apnea Stroke (HCC) 2000 mild Tremor Past Surgical History: Procedure Laterality Date Conner pH capsule placement 02/01/2017 Dr. Lobo BREAST REDUCTION 1999 bilateral [facility]-nonperforating gastritis ESOPHAGEAL MANOMETRY [...] note with the relevant labs, studies, and call center consultant notes. I have reviewed and agree [...] of care as below documented in this [id number] Consult note* Chantal Richards, [facility] - 06/04/2024 11:52 PM EDT [facility] SURGICAL HISTORY & PHYSICAL/CONSULTATION NOTE [...] History: Diagnosis Date Acquired thrombocytopenia ([facility]) [facility]/Lopez Shaikh Acute kidney injury (HCC) 05/22/2018 [facility]/Jonatan Chiu DO Anxiety Arm abrasion 06/19/2019 INFO GAINED FROM: /[facility] ED VISIT NOTE --- AC GAO MD Calcaneal spur of right foot 2016 Documented on x-ray CKD (chronic kidney disease) Congestive heart failure (CHF) ([facility]) [facility]opez Shaikh Contusion, hip 06/19/2019 INFO GAINED FROM: /[facility] ED VISIT NOTE --- AC GAO MD Depression Epilepsy ([facility]) 08/06/2011 [facility]- Dr. Chopra Epilepsy ([facility]) 1993 Facet degeneration of lumbar region 10/14/2018 [facility]/Jono ALEXIS, Moi Mild facet degenerative changes seen in the lower lumbar spine Fatty liver [facility]/Joe Mendieta MD Mild fibrofatty changes of the liver Fluid collection (edema) in the arms, legs, hands and feet 03/09/2018 Dr valentina Chopra Gastritis determined by endoscopy 12/29/2016 Dr. LeePgydit-Ifkzyitsm-ljawclgvulbvq nonbleeding with biopsy 1 para 1 Hepatic steatosis [facility]/Heidy Jara MD Mild Hiatal hernia 12/29/[address] Lobo grade 4 Hypercholesterolemia [facility]/Jonatan Chiu DO Hypertension 2000 2000-present Insomnia Neuro [facility]/Lopez Shaikh Kidney stone [facility]/Lopez Shaikh Laceration of head 06/19/2019 INFO GAINED FROM: /[facility] ED VISIT NOTE --- AC GAO MD Lung nodule 12/15/2017 0.5 cm pleural based nodule in right middle lobe. Mild linear atelectasis Mitral valve prolapse [facility]opez Shaikh Motor seizure ([facility]) 03/16/2019 INFO GAINED FROM: /[facility] ED VISIT --- BLAKE STEELECAREN Rectus diastasis [facility]/Heidy Jara MD Present with small wide necked perumbical ventral containing fat. Second degree burn of foot 04/23/2018 Right Foot - [facility] Sleep apnea Stroke ([facility]) 2000 mild Tremor Past Surgical History: Procedure Laterality Date Conner pH capsule placement 02/01/2017 Dr. Lobo BREAST REDUCTION 2000 bilateral [facility]GD 12/[facility] hiatal hernia-nonperforating gastritis ESOPHAGEAL MANOMETRY [...] note with the relevant labs, studies, and call center consultant notes. I have reviewed and agree [...] IV antibiotics Remainder of care as below [facility] Work Phone: [phone]) 193-142508-18-2024 Emergency department Note* Slyvia Gaston RN - 06/04/2024 11:47 PM EDT Report given to room 2019 nurse [id number] Emergency department Note* Sylvia Gaston RN - [...] No distress. This nurse and Manju LOPEZ [facility]. Pure wick placed. Tolerated well.No other needs. SRx2. Call light in reach. * Bang Tovar DO - 06/04/2024 9:07 PM EDT EMERGENCY MEDICINE PROVIDER NOTE WELCOME TO [facility] NAME: Reema Shah AGE: 48 y.o. SEX: female : 1975 ENCOUNTER DATE: 06/05/24 CSN: [id number] PCP: Jyoti Gupta MD History of Presenting [...] ear normal. Nose: Nose normal. Mouth/Throat: Lips: [place]. Mouth: Mucous membranes are moist. Eyes: General: [...] All other components within normal limits Narrative: [facility] has implemented the eGFR calculation approach that does not have a coefficient for race that conforms to the NKF-ASN Task Force Recommendations. LIPASE - Abnormal; Notable for the following components: Lipase 66 (*) All other components within normal limits URINALYSIS - Abnormal; Notable for the following components: Specific [place] 1.028 (*) pH, Urine 8.0 (*) All [...] Procedure Abnormality Status --------- ------ CBC Auto Differential[[id number]] Abnormal Final result Manual Differential[[id number]] Final result CBC and Diff Morphology[[id number]] Abnormal Final result Please view results for these tests on the individual orders. TROPONIN CBC AND DIFFERENTIAL Narrative: The following orders were created for panel order CBC and Differential. Procedure Abnormality Status --------- ------ CBC Auto Differential[[id number]] Please view results for these tests on [...] History: Diagnosis Date Acquired thrombocytopenia ([facility]) [facility]opez Shaikh Acute kidney injury (HCC) 05/22/2018 [facility]/Jonatan Chiu DO Anxiety Arm abrasion 06/19/2019 INFO GAINED FROM: /[facility] ED VISIT NOTE --- AC GAO MD Calcaneal spur of right foot 2016 Documented on x-ray CKD (chronic kidney disease) Congestive heart failure (CHF) ([facility]) [facility]opez Shaikh Contusion, hip 06/19/2019 INFO GAINED FROM: /[facility] ED VISIT NOTE --- AC GAO MD Depression Epilepsy ([facility]) 08/06/2011 [facility]- Dr. Chopra Epilepsy ([facility]) 1994 Facet degeneration of lumbar region 10/14/2018 [facility]/Jono ALEXIS, Moi Mild facet degenerative changes seen in the lower lumbar spine Fatty liver [facility]/Joe Mendieta MD Mild fibrofatty changes of the liver Fluid collection (edema) in the arms, legs, hands and feet 03/09/2018 Dr valentina Chopra Gastritis determined by endoscopy 12/29/2016 Dr. Prppvx-Otzydkdyx-ubfagimnusckb nonbleeding with biopsy 1 para 1 Hepatic steatosis [facility]/Heidy Jara MD Mild Hiatal hernia 12/29/[address] Lobo grade 4 Hypercholesterolemia [facility]/Jonatan Chiu DO Hypertension 2001 2000-present Insomnia [facility] Kidney stone [facility]/Lopez Shaikh Laceration of head 06/19/2019 INFO GAINED FROM: /[facility] ED VISIT NOTE --- MENG ALEXISAC A Lung nodule 12/15/2017 0.5 cm pleural based nodule in right middle lobe. Mild linear atelectasis Mitral valve prolapse [facility]opez Shaikh Motor seizure (HCC) 03/16/2019 INFO GAINED FROM: /[facility] ED VISIT --- BLAKE STEELECAREN Rectus diastasis [facility]/Heidy Jara MD Present with small wide necked perumbical ventral containing fat. Second degree burn of foot 04/23/2018 Right Foot - [facility] Sleep apnea Stroke (HCC) 2000 mild [...] BREAST REDUCTION 2000 bilateral EGD 12/29[facility] 4 hiatal hernia-nonperforating gastritis ESOPHAGEAL MANOMETRY [...] . Bang Tovar DO ED Attending Physician [facility] (Please note that portions of this note may have been completed with a voice recognition program. There is a possibility of gqdbd-b-tbyv errors inherent to this technology that may [...] of arrival: Comments: MIFFLIN documented in this [id number] History and physical note* Scott Topete MD - 06/04/2024 11:44 PM EDT [facility] [place] [facility] Patient Name: Reema Shah : 1975 MR #: [id number] Admit Date: 06/04/2024 Physicians: Jyoti Gupta MD (Family); No ref. provider found (Referring) Reema Shah is a 48 y.o. female patient of Jeanie Ayala MD with history of Thrombocytopenia, anxiety, CKD, CHF, depression, epilepsy, fatty liver, gastritis, MR, MELQUIADES, stroke, tremor presented to [facility] with abdominal pain. Acute appendicitis Admit to [...] gastritis, MR, MELQUIADES, stroke, tremor presented to [facility] with abdominal pain. Patient presenting with abdominal [...] no other complaints patient resides in a skilled nursing she had history of seizures and myoclonic [...] History: Diagnosis Date Acquired thrombocytopenia (HCC) [facility] Shaikh Acute kidney injury (HCC) 05/22/2018 [facility]/Jonatan Chiu DO Anxiety Arm abrasion 06/19/2019 INFO GAINED FROM: /[facility] ED VISIT NOTE --- AC GAO MD Calcaneal spur of right foot 2016 Documented on x-ray CKD (chronic kidney disease) Congestive heart failure (CHF) ([facility]) [facility] Shaikh Contusion, hip 06/19/2019 INFO GAINED FROM: /[facility] ED VISIT NOTE --- AC GAO MD Depression Epilepsy ([facility]) 08/06/2011 [facility]- Dr. Chopra Epilepsy ([facility]) 1993 Facet degeneration of lumbar region 10/14/2018 [facility]/Jono ALEXIS, Moi Mild facet degenerative changes seen in the lower lumbar spine Fatty liver [facility]/Joe Mendieta MD Mild fibrofatty changes of the liver Fluid collection (edema) in the arms, legs, hands and feet 03/09/2018 Dr valentina Chopra Gastritis determined by endoscopy 12/29/2016 Dr. GonzalezGcpgva-Xbrsxcqls-rmumymbtialjf nonbleeding with biopsy 1 para 1 Hepatic steatosis [facility]/Heidy Jara MD Mild Hiatal hernia 12/29/[address] Lobo grade 4 Hypercholesterolemia [facility]/Jonatan Chiu DO Hypertension 2000 2000-present Insomnia Neuro [facility] Shaikh Kidney stone [facility]opez Shaikh Laceration of head 06/19/2019 INFO GAINED FROM: /[facility] ED VISIT NOTE --- AC GAO MD Lung nodule 12/15/2017 0.5 cm pleural based nodule in right middle lobe. Mild linear atelectasis Mitral valve prolapse [facility]/Lopez Shaikh Motor seizure ([facility]) 03/16/2019 INFO GAINED FROM: /[facility] ED VISIT --- BLAKE STEELECAREN Rectus diastasis [facility]/Heidy Jara MD Present with small wide necked perumbical ventral containing fat. Second degree burn of foot 04/23/2018 Right Foot - [facility] Sleep apnea Stroke ([facility]) 2000 mild Tremor Past Surgical History Past Surgical History: Procedure Laterality Date Conner pH capsule placement 02/01/2017 Dr. Lobo BREAST REDUCTION 2000 bilateral EGD 12/29[facility] 4 hiatal hernia-nonperforating gastritis ESOPHAGEAL MANOMETRY [...] normal coloration Psych: normal mood and affect [id number] NoteHMS HISTORY AND PHYSICAL -- [facility] Patient Name: Reema Shah : 1975 MR #: [id number] Admit Date: 06/04/2024 Physicians: Jyoti Gupta MD (Family); No ref. provider found (Referring) Reema Shah is a 48 y.o. female patient of Jeanie Ayala MD with history of Thrombocytopenia, anxiety, CKD, CHF, depression, epilepsy, fatty liver, gastritis, MR, MELQUIADES, stroke, tremor presented to [facility] with abdominal pain. Acute appendicitis Admit to [...] gastritis, MR, MELQUIADES, stroke, tremor presented to [facility] with abdominal pain. Patient presenting with abdominal [...] no other complaints patient resides in a skilled nursing she had history of seizures and myoclonic [...] History: Diagnosis Date Acquired thrombocytopenia ([facility]) [facility] Shaikh Acute kidney injury ([facility]) 05/22/2018 [facility]/Jonatan Chiu DO Anxiety Arm abrasion 06/19/2019 INFO GAINED FROM: /[facility] ED VISIT NOTE --- AC GAO MD Calcaneal spur of right foot 2016 Documented on x-ray CKD (chronic kidney disease) Congestive heart failure (CHF) ([facility]) [facility]opez Shaikh Contusion, hip 06/19/2019 INFO GAINED FROM: /[facility] ED VISIT NOTE --- AC GAO MD Depression Epilepsy ([facility]) 08/06/2011 [facility]- [facility]. Chopra Epilepsy ([facility]) 1993 Facet degeneration of lumbar region 10/14/2018 [facility]/Jono ALEXIS, Moi Mild facet degenerative changes seen in the lower lumbar spine Fatty liver [facility]/Joe Mendieta MD Mild fibrofatty changes of the liver Fluid collection (edema) in the arms, legs, hands and feet 03/09/2018 Dr valentina Chopra Gastritis determined by endoscopy 12/29/2016 Dr. GonzalezVenkgo-Bvywkrnzr-udjixwqgvgbyl nonbleeding with biopsy 1 para 1 Hepatic steatosis [facility]/Heidy Jara MD Mild Hiatal hernia 12/29/[address] Lobo grade 4 Hypercholesterolemia [facility]/Jonatan Chiu DO Hypertension 2000 2000-present Insomnia [facility]/Lopez Shaikh Kidney stone [facility]opez Shaikh Laceration of head 06/19/2019 INFO GAINED FROM: /[facility] ED VISIT NOTE --- MENG ALEXIS,AC A Lung nodule 12/15/2017 0.5 cm pleural based nodule in right middle lobe. Mild linear atelectasis Mitral valve prolapse [facility] Motor seizure (HCC) 03/16/2019 INFO GAINED FROM: /[facility] ED VISIT --- BLAKE STEELECAREN Rectus diastasis [facility]/Hiedy Jara MD Present with small wide necked perumbical ventral containing fat. Second degree (more content not included)...[facility]08-18-2024 History and physical note* Scott Topete MD - 06/04/2024 11:44 PM EDT [facility] [place] [facility] Patient Name: Reema Shah : 1975 MR #: [id number] Admit Date: 06/04/2024 Physicians: Jytoi Gupta MD (Family); No ref. provider found (Referring) Reema Shah is a 48 y.o. female patient of Jeanie Ayala MD with history of Thrombocytopenia, anxiety, CKD, CHF, depression, epilepsy, fatty liver, gastritis, MR, MELQUIADES, stroke, tremor presented to [facility] with abdominal pain. Acute appendicitis Admit to [...] gastritis, MR, MELQUIADES, stroke, tremor presented to [facility] with abdominal pain. Patient presenting with abdominal [...] no other complaints patient resides in a skilled nursing she had history of seizures and myoclonic [...] History: Diagnosis Date Acquired thrombocytopenia ([facility]) [facility]opez Shaikh Acute kidney injury ([facility]) 05/22/2018 [facility]/Jonatan Chiu DO Anxiety Arm abrasion 06/19/2019 INFO GAINED FROM: /[facility] ED VISIT NOTE --- AC GAO MD Calcaneal spur of right foot 2016 Documented on x-ray CKD (chronic kidney disease) Congestive heart failure (CHF) ([facility]) [facility]opez Shaikh Contusion, hip 06/19/2019 INFO GAINED FROM: /[facility] ED VISIT NOTE --- AC GAO MD Depression Epilepsy ([facility]) 08/06/2011 [facility]- [facility]. Chopra Epilepsy ([facility]) 1994 Facet degeneration of lumbar region 10/14/2018 [facility]/Jono ALEXIS, Moi Mild facet degenerative changes seen in the lower lumbar spine Fatty liver [facility]/Joe Mendieta MD Mild fibrofatty changes of the liver Fluid collection (edema) in the arms, legs, hands and feet 03/09/2018 Dr valentina Chopra Gastritis determined by endoscopy 12/29/2016 Dr. LeeTxurvg-Vpzcujavu-pqulxlevreneo nonbleeding with biopsy 1 para 1 Hepatic steatosis [facility]/Heidy Jara MD Mild Hiatal hernia 12/29/[address] Lobo grade 4 Hypercholesterolemia [facility]/Jonatan Chiu DO Hypertension 2000 2000-present Insomnia [facility]opez Shaikh Kidney stone [facility]opez Shaikh Laceration of head 06/19/2019 INFO GAINED FROM: /[facility] ED VISIT NOTE --- MENG ALEXIS,AC A Lung nodule 12/15/2017 0.5 cm pleural based nodule in right middle lobe. Mild linear atelectasis Mitral valve prolapse [facility]opez Shaikh Motor seizure (HCC) 03/16/2019 INFO GAINED FROM: /[facility] ED VISIT --- GILMAN DO,CAREN Rectus diastasis [facility]/Heidy Jara MD Present with small wide necked perumbical ventral containing fat. Second degree burn of foot 04/23/2018 Right Foot - [facility] Sleep apnea Stroke (HCC) 2000 mild Tremor Past Surgical History Past Surgical History: Procedure Laterality Date Conner pH capsule placement 02/01/2017 Dr. Lobo BREAST REDUCTION 2000 bilateral [facility]-nonperforating gastritis ESOPHAGEAL MANOMETRY [...] normal mood and affect documented in this [id number] Note* ED Procedure Note - Bang Tovar DO - 06/04/2024 11:35 PM EDTAssociated Order(s): EKG 12-lead EKG 12-lead Date/Time: 06/04/2024 9:39 PM Performed by: Bang Tovar DO Authorized by: Bang Tovar DO Interpreted by ED attending physician Rhythm: sinus rhythm BPM: 70 Conduction: conduction normal ST Segments: ST segments normal T Waves: T waves normal Clinical impression: normal ECG [id number] Emergency department Note* Sylvia Gaston RN - 06/04/2024 11:16 PM EDT Report received from Royer LOPEZ [id number] Emergency department Note* Maxine Vance RN - 06/04/2024 10:54 PM EDT Resting in bed. Eyes closed. Breathing even and unlabored. No distress noted. SRx2. Call light in reach. [id number] Emergency department Note* Maxine Vance RN - 06/04/2024 9:46 PM EDT In bed resting. No distress. This nurse and Manju LOPEZ cartside. Pure wick placed. Tolerated well.No other needs. SRx2. Call light in reach. [id number] Physician Emergency department Note* Bang Tovar DO - 06/04/2024 9:07 PM EDT EMERGENCY MEDICINE PROVIDER NOTE WELCOME TO [facility] NAME: Reema Shah AGE: 48 y.o. SEX: female : 1975 ENCOUNTER DATE: 06/05/24 CSN: [id number] PCP: Jyoti Gupta MD History of Presenting [...] ear normal. Nose: Nose normal. Mouth/Throat: Lips: [place]. Mouth: Mucous membranes are moist. Eyes: General: [...] All other components within normal limits Narrative: [facility] has implemented the eGFR calculation approach that does not have a coefficient for race that conforms to the NKF-ASN Task Force Recommendations. LIPASE - Abnormal; Notable for the following components: Lipase 66 (*) All other components within normal limits URINALYSIS - Abnormal; Notable for the following components: Specific [place] 1.028 (*) pH, Urine 8.0 (*) All [...] Procedure Abnormality Status --------- ------ CBC Auto Differential[[id number]] Abnormal Final result Manual Differential[[id number]] Final result CBC and Diff Morphology[[id number]] Abnormal Final result Please view results for these tests on the individual orders. TROPONIN CBC AND DIFFERENTIAL Narrative: The following orders were created for panel order CBC and Differential. Procedure Abnormality Status --------- ------ CBC Auto Differential[[id number]] Please view results for these tests on [...] History: Diagnosis Date Acquired thrombocytopenia ([facility]) [facility]opez Shaikh Acute kidney injury (HCC) 05/22/2018 [facility]/Jonatan Chiu DO Anxiety Arm abrasion 06/19/2019 INFO GAINED FROM: /[facility] ED VISIT NOTE --- AC GAO MD Calcaneal spur of right foot 2016 Documented on x-ray CKD (chronic kidney disease) Congestive heart failure (CHF) ([facility]) [facility]Lopez Shaikh Contusion, hip 06/19/2019 INFO GAINED FROM: /[facility] ED VISIT NOTE --- AC GAO MD Depression Epilepsy ([facility]) 08/06/2011 [facility]- [facility] Chopra Epilepsy ([facility]) 1993 Facet degeneration of lumbar region 10/14/2018 [facility]/Jono ALEXIS, Moi Mild facet degenerative changes seen in the lower lumbar spine Fatty liver [facility]/Joe Mendieta MD Mild fibrofatty changes of the liver Fluid collection (edema) in the arms, legs, hands and feet 03/09/2018 Dr valentina Chopra Gastritis determined by endoscopy 12/29/2016 Dr. GonzalezNjaiim-Vdbqrxhkt-dqaoetzzcwtqr nonbleeding with biopsy 1 para 1 Hepatic steatosis [facility]/Heidy Jara MD Mild Hiatal hernia 12/29/[address] Lobo grade 4 Hypercholesterolemia [facility]/Jonatan Chiu DO Hypertension 2000 2000-present Insomnia [facility]/Lopez Shaikh Kidney stone [facility]opez Shaikh Laceration of head 06/19/2019 INFO GAINED FROM: /[facility] ED VISIT NOTE --- AC GAO MD Lung nodule 12/15/2017 0.5 cm pleural based nodule in right middle lobe. Mild linear atelectasis Mitral valve prolapse [facility] Motor seizure (HCC) 03/16/2019 INFO GAINED FROM: /[facility] ED VISIT --- BLAKE STEELECAREN Rectus diastasis [facility]/Heidy Jara MD Present with small wide necked perumbical ventral containing fat. Second degree burn of foot 04/23/2018 Right Foot - [facility] Sleep apnea Stroke (HCC) 2001 mild [...] BREAST REDUCTION 1999 bilateral [facility] 4 hiatal hernia-nonperforating gastritis ESOPHAGEAL MANOMETRY [...] . Bang Tovar DO ED Attending Physician [facility] (Please note that portions of this note may have been completed with a voice recognition program. There is a possibility of cxlga-s-cbfd errors inherent to this technology that may be missed during proofreading and efforts were made to edit the dictations but occasionally words are mis-transcribed.) Bang Tovar DO Resident 06/05/24 0332 [id number] Emergency department Triage note* Maxine Vance RN - 06/04/2024 8:43 PM EDT Pt arrives to ED for abdominal pain. Pt states this started 2 hours ago. Pt also states she vomiteda few times. Pt arrives in no distress. Breathing even and unlabored. No distress. GCS 15. [id number] Emergency department Note* Neelima Barroso RN - 06/04/2024 8:42 PM EDT Bed: 12 Expected date: Expected time: Means of arrival: Comments: MIFFLIN [id number] History of Present illness Narrative* Gayatri Bobby PA-C - 05/31/2024 3:00 PM EDT DATE OF SERVICE: 05/31/2024 PATIENT NAME: Reema Shah : 1975 AGE: 48 y.o. CLINIC NUMBER: [id number] Visit type: New Chief Complaint Patient presents [...] previous diana tment with Vaseline. Currently using Acertiv tree body wash, no lotion and unsure of the laundry detergent. Patient stated when she lived in [place] that is when the redness got worse and a provider in [place] gave her a solution to put on the areas. Patient has never seen a power press tender in the past. Are you , trying [...] on face, armpits, groin. Risks associated with intermediate topical steroid use reviewed in detail. Patient [...] 05/31/24 3:32 PM REFERRING MD: [id number] [facility] [place], [place] [address] documented in this [facility]07-03-2024 History of Present illness Narrative* Shayy [...] notes that when she saw gynecology in [place] they felt this was not pelvic related [...] nursing note reviewed. Exam conducted with a manager of software development present. Constitutional: General: She is not in [...] time. Shayy Mcginnis MD [facility] Work Phone: 1(437) 576-976706-19-2024 History of Present illness Narrative* Khalida Mtz MD - 04/05/2024 11:30 AM EDT Division of Minimally Invasive Gynecologic Surgery [facility] 04/05/24 Gynecology Visit CC: Chief Complaint Patient presents with Consult Endometriosis Fibroids Chief Nuclear Medicine Technologist not required Reviewed and approved by LUCY [...] Labs: --H/H 12.4/36.4 --Plt: 90 --Cr 1.15 TIMBER TRIMMER Hx Gynecologic history: Contraception/menstrual regulation: none Desires [...] PSHx, SHx, Allergies, and Medications updated in [facility]. Past Medical History: Diagnosis Date Encounter [...] ANGIO W AND WO IV CONTRAST 05/09/2022 LONG [facility] EMERGENCY LEGACY CT HEAD ANGIO W AND WO IV CONTRAST 05/09/2022 CT HEAD ANGIO W AND WO IV CONTRAST 05/09/2022 [facility] EMERGENCY LEGACY OTHER SURGICAL HISTORY 01/30/2022 [...] Insecurity: No Food Insecurity (03/04/2024) Received from [facility] Vital Sign Worried About Running Out of Food in the Last Year: Never true Ran Out of Food in the Last Year: Never true Transportation Needs: No Transportation Needs (03/04/2024) Received from [facility] PRAPARE - Transportation Lack of Transportation (Medical): No Lack of Transportation (Non-Medical): No Physical Activity: Not on file Stress: Not on file Social Connections: Not on file Intimate Partner Violence: Not At Risk (03/04/2024) Received from [facility] Humiliation, Afraid, Rape, and Kick questionnaire Fear of Current or Ex-Partner: No Emotionally Abused: No Physically Abused: No Sexually Abused: No Housing Stability: Low Risk (03/04/2024) Received from [facility] Housing Stability Vital Sign Unable to [...] MD Division of Minimally Invasive Gynecologic Surgery [facility] documented in this [facility] Work Phone: 1(469) 596-611706-18-2024 History of Present illness Narrative* Mejia Cullen MD - 04/04/2024 11:30 AM EDT Images from the original note were not included. [facility] [address] [place] [id number] Dept: [phone] Dept Loc: [phone] [facility] Physical Medicine and Rehabilitation Clinic Consultation [...] shoulder xray normal. Patient was admitted to [facility] 03/04/24 with concern for seizure episodes while in ED for chest pain. Home antiepileptic medication levels were checked and Keppra was increased.Tremor was suspected to be due to intermediate Depakote use and patient instructed to follow [...] Has powerchair. Lives in assisted living facility ([facility]). Moving to [facility] next month. Workup: CT Brain, CT [...] Holter Monitor and Nuclear Stress Test at [facility] 10/05/23 for pre-op testing were negative. CT Head 09/16/23 (report only, [facility]) The ventricles, cisterns and sulci are prominent, [...] days of PT and OT quarterly at [facility] [place] - Continue to pursue new powerchair. [facility] Face to face evaluation performed by this [...] Physical Medicine and Rehabilitation documented in this [facility]06-18-2024 Instructions* Patient Instructions* Mejia Cullen MD - 04/04/2024 11:30 AM EDT Call [phone] to schedule with seizure specialist Dr. Hernandez. documented in this [facility]05-21-2024 NoteHMS DISCHARGE SUMMARY -- [facility] Reema Shah Admitted: 03/04/2024 Discharge Date: 03/07/2024 [...] a day . cyanocob (more content not included)...[facility]05-20-2024 [facility] PROGRESS NOTE Assessment and Plan Reema Shah is a 48 y.o. [facility] with [facility] of hypertension with hyperlipidemia [...] hospitalization due to: Neurology evaluation Discharge Location: [facility] Quality Measures DVT Prophylaxis: heparin subcutaneous Lyon [...] affect AUTHENTICATED BY CATALINA OLIVEIRA, ON 03/06/2024 12:01:[address] [place] [address] 03-06-2024 NoteNeurology Follow Up Note [facility] Date of Service: 03/06/24 Service Type: Follow up, neurology Patient: Reema Shah Date of : 1975 (48 y.o.) Referring Provider: Refer to consult order in electronic medical record Assessment ASSESSMENT: Reema Shah is a 48 y.o. female who presented to [facility] on 03/04/2024 with jerking movements Patient with [...] reports having a prior EMU stay in [place] a few years ago, but I do not see any sign of that in the records from [facility], , or [facility], which are the only places I know of with EMU capacity in the [facility]. She says it characterized her seizures [...] in exam. Marzena Gresham MD Staff Neurologist [facility] [id number], [facility] [address] Clinic 03/06/24 Parts of this note may have been dictated using Mammotome, a speech-recognition software. Syntax errors and sound-alike [...] GTC activity. Follows with Dr. Gillette in [place]. Has been using Depakote and Keppra for [...] got an EMU stay years ago in [place] and it described her seizures as grand mal. 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 [facility] with history of hypertension [...] hospitalization due to: Neurology evaluation Discharge Location: [facility] Quality Measures DVT Prophylaxis: heparin subcutaneous Lyon [...] affect AUTHENTICATED BY CATALINA OLIVEIRA, ON 03/05/2024 13:51:[address] [place] [address] 03-04-2024 NoteHMS HISTORY AND PHYSICAL -- [facility] Patient Name: Reema Shah : 1975 MR #: [id number] Admit Date: 03/04/2024 Physicians: Jyoti Gupta MD [...] is a 48 y.o. female patient of [facility], Jyoti Maharaj MD with history of hypertension [...] Center/[facility] Acute kidney injury (HCC) 05/22/2018 [facility]/Jonatan Chiu DO Anxiety Arm abrasion 06/19/2019 INFO GAINED FROM: /[facility] ED VISIT NOTE --- AC GAO MD Calcaneal spur of right foot 2016 Documented on x-ray CKD (chronic kidney disease) Congestive heart failure (CHF) ([facility]) [facility] Contusion, hip 06/19/2019 INFO GAINED FROM: /[facility] ED VISIT NOTE --- AC GAO MD Depression Epilepsy ([facility]) 08/06/2011 [facility]- [facility]. Chopra Epilepsy ([facility]) 1993 Facet degeneration of lumbar region 10/14/2018 [facility]/Jono ALEXIS, Moi Mild facet degenerative changes seen in the lower lumbar spine Fatty liver [facility]/Joe Mendieta MD Mild fibrofatty changes of the liver Fluid colle (more content not included)...[facility]04-19-2024 History of Present illness Narrative* Litzy Arnold LPN - 02/04/2024 9:30 AM EDT Patient desires to establish care. Reports history of endometriosis. Is interested in a hysterectomy.Record form skilled nursing scanned into media. * Olinda Luna MD - 02/04/2024 9:30 AM EDT BRANDEN Shah is a 48 y.o. female who presents today for concerns including EstablishCare. Patient came in to discuss getting a hysterectomy. She reported that her previous Biological Sciences Professor Doctor had recommended that she get a hysterectomy secondary to endometriosis. Off note, there were no coach records on presentation. She did not get [...] given that I do not have any Biological Sciences Professor records to reference at this time, I [...] period for the last 3 months; perimenopause? Nursing Unit Manager s\hared amparo she was going to make sure that we get her Biological Sciences Professor records. Answered all of patient's questions and [...] Olinda Luna MD 02/04/2024 [facility] [address] [facility] Telephone encounter Note* Telephone Encounter - Kelly Wilkerson MA - 01/04/2024 9:31 AM EDT This was sent to the wrong pool. [id number] Miscellaneous Notes* Telephone Encounter - Kelly Wilkerson MA - 01/04/2024 9:31 AM EDT This was sent to the wrong pool. * Telephone Encounter - Paige Araya - 01/03/2024 5:18 PM EDT Name of caller: Nat Contact phone number: [phone] Relationship to Patient: [facility] Provider: Jamila Practice: Neuro Chief Complaint/Reason for [...] return their call: No documented in this [facility]03-18-2024 Telephone encounter Note* Telephone Encounter - Paige Araya - 01/03/2024 5:18 PM EDT Name of caller: Nat Contact phone number: [phone] Relationship to Patient: [facility] Provider: Jamila Practice: Neuro Chief Complaint/Reason for [...] business hours to return their call: No [facility] [id number] History of Present illness Narrative* Mejia Cullen MD - 01/03/2024 1:00 PM EDT Images from the original note were not included. [facility]ENCE CENTER [address] [place] [address] Dept: [phone] Dept Loc: [phone] [facility] Physical Medicine and Rehabilitation Clinic Consultation [...] Has powerchair. Lives in assisted living facility ([facility]). Moving to [facility] next month. Workup: CT Brain, CT [...] Holter Monitor and Nuclear Stress Test at [facility] 10/05/23 for pre-op testing were negative. CT Head 09/16/23 (report only, [facility]) The ventricles, cisterns and sulci are prominent, [...] clear. CT C spine 08/25/23 (report only, [facility]) Cervical spine: Alignment: Stable alignment. Cranial cervical [...] Meyers. - Cont PT and OT at [facility] [place] - Continue to pursue new powerchair. New prescription sent to [facility] last week. Face to face evaluation [...] Physical Medicine and Rehabilitation documented in this [facility]03-16-2024 Emergency department Note* Litzy Garcia RN - 01/01/2024 11:59 AM EDT PT DISCHARGED AT THIS TIME. COPY OF DISCHARGE PAPERWORK PROVIDED AND REVIEWED WITH PT AND [facility]ENIX. ALL MEDICATIONS, FOLLOW UP, AND DISCHARGE INSTRUCTIONS REVIEWED WITH PT, EMS, AND [facility]. PT VERBALIZED UNDERSTANDING. PT A&OX4. BREATHS EVEN AND UNLABORED. IV ACCESS REMOVED AND PRESSURE DRESSING APPLIED. [id number] Emergency department Note* Litzy Garcia RN - 01/01/2024 11:59 AM EDT PT DISCHARGED AT THIS TIME. COPY OF DISCHARGE PAPERWORK PROVIDED AND REVIEWED WITH PT AND [facility]ENIX. ALL MEDICATIONS, FOLLOW UP, AND DISCHARGE INSTRUCTIONS REVIEWED WITH PT, EMS, AND [facility]. PT VERBALIZED UNDERSTANDING. PT A&OX4. BREATHS EVEN [...] EDT This PSA spoke with Franco from [facility] @1114 to transport pt back to [place], [facility] 1145 * Litzy Garcia RN - 01/01/2024 [...] from the original note were not included. [facility] ED DIOMEDES Note: NAME: Reema Shah 48 y.o. CSN: [id number] PCP: Jeanie Ayala MD History: Chief Complaint: [...] she was sitting in her chair at [facility]. States pain in the left chest radiates [...] History: Diagnosis Date Acquired thrombocytopenia ([facility]) [facility] Acute kidney injury (HCC) 05/22/2018 [facility]/Jonatan Chiu DO Anxiety Arm abrasion 06/19/2019 INFO GAINED FROM: /[facility] ED VISIT NOTE --- AC GAO MD Calcaneal spur of right foot 2016 Documented on x-ray CKD (chronic kidney disease) Congestive heart failure (CHF) ([facility]) [facility] Contusion, hip 06/19/2019 INFO GAINED FROM: /[facility] ED VISIT NOTE --- AC GAO MD Depression Epilepsy ([facility]) 08/06/2011 [facility]- [facility] Chopra Epilepsy ([facility]) 1993 Facet degeneration of lumbar region 10/14/2018 [facility]/Jono ALEXIS, Moi Mild facet degenerative changes seen in the lower lumbar spine Fatty liver [facility]/Joe Mendieta MD Mild fibrofatty changes of the liver Fluid collection (edema) in the arms, legs, hands and feet 03/09/2018 Dr valentina Chopra Gastritis determined by endoscopy 12/29/2016 Dr. GonzalezEoitpk-Scnpfrryb-ngkbskisdvceb nonbleeding with biopsy 1 para 1 Hepatic steatosis [facility]/Heidy Jara MD Mild Hiatal hernia 12/29/[address] Lobo grade 4 Hypercholesterolemia [facility]/Jonatan Chiu DO Hypertension 2001 2000-present Insomnia Neuro [facility] Kidney stone [facility] Laceration of head 06/19/2019 INFO GAINED FROM: /[facility] ED VISIT NOTE --- AC GAO MD Lung nodule 12/15/2017 0.5 cm pleural based nodule in right middle lobe. Mild linear atelectasis Mitral valve prolapse [facility] Motor seizure ([facility]) 03/16/2019 INFO GAINED FROM: /[facility] ED VISIT --- GILMAN DO,CAREN Rectus diastasis [facility]/Heidy Jara MD Present with small wide necked perumbical ventral containing fat. Second degree burn of foot 04/23/2018 Right Foot - [facility] Sleep apnea Stroke (HCC) 2001 mild Tremor PMSx: Past Surgical History: Procedure Laterality Date Conner pH capsule placement 02/01/2017 Dr. Lobo BREAST REDUCTION 2000 bilateral [facility] 12[facility] hiatal hernia-nonperforating gastritis ESOPHAGEAL MANOMETRY [...] All other components within normal limits Narrative: [facility] has implemented the eGFR [...] Procedure Abnormality Status --------- ------ CBC Auto Differential[[id number]] Abnormal Final result Please view results for [...] Kindra Lopez CNP ED Advanced Practice Provider [facility] Emergency Department (Please note that portions of [...] on the way in. documented in this [id number] Emergency department Note* Litzy Garcia RN - 01/01/2024 11:30 AM EDT Hourly rounding assessment completed on the patient. [] Patient updated on plan of care [x] All comfort needs addressed [x] Patient updated on duration of visit All questions answered, patient denies further needs. Call light within reach. [id number] Hospital course Narrative* Carolynn Dinh DO - 01/01/2024 11:25 AM EDT Images from the original note were not included. [facility] [place] SUMMARY -- [facility] Reema Shah Admitted: 12/31/2023 Discharge Date: 01/01/24 PCP Handoff Recommended Outpatient Testing None Results Pending At Discharge None Clinical Summary Reema Shah is a 48 y.o. female patient of Jeanie Ayala MD with history of Thrombocytopenia, anxiety, CKD, CHF, depression, epilepsy, fatty liver, gastritis, MR, seizures, MELQUIADES, stroke, tremor presented to [facility] on 12/31/2023 with Chest pain Chest pain Trop wnl x2, ECG without changes. This does not represent ACS CT reviewed, no acute abnormality explain symptoms Symptoms improved the following day Chronic HFpEF Not in acute exacerbation. P-BNP elevation likely due to CKD Consider addition of MRA or SGLT2i MDD/MALI DRAMATIC TEACHER sertraline, buspirone, lorazepam GERD DRAMATIC TEACHER famotidine, pantoprazole MELQUIADES CPAP at night CVA Tremors Seizure disorder DRAMATIC TEACHER primidone, levetiracetam, divalproex HTN/HLD DRAMATIC TEACHER amlodipine, atorvastatin, lisinopril, metoprolol CKD 3a Basweline Cr near 1.4-1.5 Gout DRAMATIC TEACHER allopurinol Hypothyroidism DRAMATIC TEACHER levothyroxine Discharge Medications Discharge Medications Modified Medications [...] on 01/01/24, 12:23 PM documented in this [id number] Emergency department Note* Hayley Syed PSA - 01/01/2024 11:19 AM EDT This PSA spoke with Franco from [facility] @1114 to transport pt back to [place], [place] 1145 [id number] Emergency department Note* Litzy Garcia RN - 01/01/2024 10:51 AM EDT Pt call light answered. Pt placed on bedpan per request. Pt noted to have a small BM and small amount of urine out put noted. Lani care provided. Pt repositioned and call light in reach. [id number] Emergency department Note* Litzy Garcia RN - 01/01/2024 10:30 AM EDT Hourly rounding assessment completed on the patient. [] Patient updated on plan of care [x] All comfort needs addressed [] Patient updated on duration of visit All questions answered, patient denies further needs. Call light within reach. [place] [id number] Emergency department Note* Litzy Garcia RN - 01/01/2024 9:48 AM EDT Pt incontinent and provided bed bath, clean linen, and brief. Pt provided with warm blankets and repositioned per her request. Call light in reach. [id number] Emergency department Note* Litzy Garcia RN - 01/01/2024 9:30 AM EDT Hourly rounding assessment completed on the patient. [] Patient updated on plan of care [x] All comfort needs addressed [x] Patient updated on duration of visit All questions answered, patient denies further needs. Call light within reach. [id number] Emergency department Note* Litzy Garcia RN - 01/01/2024 9:03 AM EDT Meal tray delivered. [id number] Emergency department Note* Litzy Garcia RN - 01/01/2024 8:30 AM EDT Hourly rounding assessment completed on the patient. [] Patient updated on plan of care [x] All comfort needs addressed [x] Patient updated on duration of visit All questions answered, patient denies further needs. Call light within reach. [id number] History of Present illness Narrative* Carolynn Dinh, - 01/01/2024 8:22 AM EDT [facility] [place]GRESS NOTE Assessment and Plan Reema Shah is a 48 y.o. female patient of Jeanie Ayala MD with history of Thrombocytopenia, anxiety, CKD, CHF, depression, epilepsy, fatty liver, gastritis, MR, seizures, MELQUIADES, stroke, tremor presented to [facility] on 12/31/2023 with Chest pain . Chest pain Trop wnl x2, ECG without changes. This does not represent ACS CT reviewed, no acute abnormality explain symptoms Chronic HFpEF Not in acute exacerbation. P-BNP elevation likely due to CKD Consider addition of MRA or SGLT2i MDD/MALI DRAMATIC TEACHER sertraline, buspirone, lorazepam GERD DRAMATIC TEACHER famotidine, pantoprazole MELQUIADES CPAP at night CVA Tremors Seizure disorder DRAMATIC TEACHER primidone, levetiracetam, divalproex HTN/HLD DRAMATIC TEACHER amlodipine, atorvastatin, lisinopril, metoprolol CKD 3a Basweline Cr near 1.4-1.5 Gout DRAMATIC TEACHER allopurinol Hypothyroidism DRAMATIC TEACHER levothyroxine Discharge Planning Medically Stable for Discharge [...] normal mood and affect documented in this [id number] Emergency department Note* Litzy Garcia RN - 01/01/2024 7:30 AM EDT Hourly rounding assessment completed on the patient. [] Patient updated on plan of care [x] All comfort needs addressed [x] Patient updated on duration of visit All questions answered, patient denies further needs. Call light within reach. [id number] Emergency department Note* Litzy Garcia RN - 01/01/2024 7:19 AM EDT Report received from JOHN Cochran. [id number] Emergency department Note* Neelima Barroso RN - 01/01/2024 12:40 AM EDT Bed: 35 Expected date: Expected time: Means of arrival: Comments: 10 BOARDER [id number] Emergency department Note* Nubia Garcia RN - 01/01/2024 12:01 AM EDT Hourly rounding assessment completed on the patient. [x] Patient updated on plan of care [x] All comfort needs addressed [x] Patient updated on duration of visit All questions answered, patient denies further needs. Call light within reach. Patient repositioned and given a new warm blanket at this time [id number] Emergency department Note* Nubia Garcia RN - [...] snack and drink at this time T [id number] Note* ED Attestation Note - Moe Tarango [...] chest pain, reasonable to be admitted. T [facility] Work Phone: 1(613) 613-718303-15-2024 Miscellaneous Notes* ED Attestation Note - Moe [...] reasonable to be admitted. documented in this [id number] Emergency department Note* Nubia Garcia RN - 12/31/2023 10:10 PM EDT Hourly rounding assessment completed on the patient. [] Patient updated on plan of care [x] All comfort needs addressed [] Patient updated on duration of visit All questions answered, patient denies further needs. Call light within reach. PT ADJUSTED IN THE BED AT THIS TIME [id number] History and physical note* Naveen Hernandez DO - 12/31/2023 9:54 PM EDT [facility] H[facility] AND PHYSICAL -- [facility] Patient Name: Reema Shah : 1975 MR #: [id number] Admit Date: 12/31/2023 Physicians: Jeanie Ayala MD (Family); Jyoti Gupta* (Referring) Reema Shah is a 48 y.o. female patient of Jeanie Ayala MD with history of Thrombocytopenia, anxiety, CKD, CHF, depression, epilepsy, fatty liver, gastritis, MR, seizures, MELQUIADES, stroke, tremor presented to [facility] on 12/31/2023 with Chest pain . Chest [...] MR, seizures, MELQUIADES, stroke, tremor presented to [facility] on 12/31/2023 with Chest pain . Pain [...] Center/[facility] Acute kidney injury (HCC) 05/22/2018 [facility]/Jonatan Chiu DO Anxiety Arm abrasion 06/19/2019 INFO GAINED FROM: [facility] ED VISIT NOTE --- AC GAO MD Calcaneal spur of right foot 2016 Documented on x-ray CKD (chronic kidney disease) Congestive heart failure (CHF) ([facility]) [facility] Contusion, hip 06/19/2019 INFO GAINED FROM: [facility] ED VISIT NOTE --- AC GAO MD Depression Epilepsy ([facility]) 08/06/2011 [facility] Chopra Epilepsy ([facility]) 1993 Facet degeneration of lumbar region 10/14/2018 [facility]/Jono ALEXIS, Moi Mild facet degenerative changes seen in the lower lumbar spine Fatty liver [facility]/Joe Mendieta MD Mild fibrofatty changes of the liver Fluid collection (edema) in the arms, legs, hands and feet 03/09/2018 Dr valentina Chopra Gastritis determined by endoscopy 12/29/2016 Dr. GuerreroQutmrg-Ytwhoosik-edyfhzjufdqkl nonbleeding with biopsy 1 para 1 Hepatic steatosis [facility]/Heidy Jara MD Mild Hiatal hernia 12/29/[address] Lobo grade 4 Hypercholesterolemia [facility]/Jonatan Chiu DO Hypertension 2000 2000-present Insomnia Neuro [facility]opez Sha[facility] Kidney stone [facility]/Lopez Sha[facility] Laceration of head 06/19/2019 INFO GAINED FROM: [facility] ED VISIT NOTE --- AC GAO MD A Lung nodule 12/15/2017 0.5 cm pleural based nodule in right middle lobe. Mild linear atelectasis Mitral valve prolapse [facility]/Lopez Sha[facility] Motor seizure ([facility]) 03/16/2019 INFO GAINED FROM: [facility] ED VISIT --- GILMAN DO,CAREN Rectus diastasis [facility]/Heidy Jara MD Present with small wide necked perumbical ventral containing fat. Second degree burn of foot 04/23/2018 Right Foot - [facility] Sleep apnea Stroke ([facility]) 2000 mild Tremor Past Surgical History Past Surgical History: Procedure Laterality Date Conner pH capsule placement 02/01/2017 Dr. Lobo BREAST REDUCTION 1999 bilateral [facility]-nonperforating gastritis ESOPHAGEAL MANOMETRY [...] normal coloration Psych: normal mood and affect [id number] History and physical note* Naveen Hernandez DO - 12/31/2023 9:54 PM EDT [facility] PHYSICAL -- [facility] Patient Name: Reema Shah : 1975 MR #: [id number] Admit Date: 12/31/2023 Physicians: Jeanie Ayala MD (Family); Jyoti Gupta* (Referring) Reema Shah is a 48 y.o. female patient of Jeanie Ayala MD with history of Thrombocytopenia, anxiety, CKD, CHF, depression, epilepsy, fatty liver, gastritis, MR, seizures, MELQUIADES, stroke, tremor presented to [facility] on 12/31/2023 with Chest pain . Chest [...] MR, seizures, MELQUIADES, stroke, tremor presented to [facility] on 12/31/2023 with Chest pain . Pain [...] History: Diagnosis Date Acquired thrombocytopenia ([facility]) Neuro [facility]/Lopez Shaikh Acute kidney injury (HCC) 05/22/2018 [facility]/Jonatan Chiu DO Anxiety Arm abrasion 06/19/2019 INFO GAINED FROM: /[facility] ED VISIT NOTE --- AC GAO MD Calcaneal spur of right foot 2016 Documented on x-ray CKD (chronic kidney disease) Congestive heart failure (CHF) ([facility]) [facility]/Lopez Shaikh Contusion, hip 06/19/2019 INFO GAINED FROM: /[facility] ED VISIT NOTE --- AC GAO MD Depression Epilepsy ([facility]) 08/06/2011 [facility]- [facility]. Chopra Epilepsy ([facility]) 1993 Facet degeneration of lumbar region 10/14/2018 [facility]/Jono ALEXIS, Moi Mild facet degenerative changes seen in the lower lumbar spine Fatty liver [facility]/Joe Mendieta MD Mild fibrofatty changes of the liver Fluid collection (edema) in the arms, legs, hands and feet 03/09/2018 Dr valentina Chopra Gastritis determined by endoscopy 12/29/2016 Dr. GonzalezMuikry-Nrehkhzjf-mquuonfqgnlwq nonbleeding with biopsy 1 para 1 Hepatic steatosis [facility]/Heidy Jara MD Mild Hiatal hernia 12/29/[address] Lobo grade 4 Hypercholesterolemia [facility]/Jonatan Chiu DO Hypertension 2000 2000-present Insomnia Neuro [facility]/Lopez Shaikh Kidney stone Neuro [facility]/Lopez Shaikh Laceration of head 06/19/2019 INFO GAINED FROM: /[facility] ED VISIT NOTE --- AC GAO MD Lung nodule 12/15/2017 0.5 cm pleural based nodule in right middle lobe. Mild linear atelectasis Mitral valve prolapse [facility]Lopez Shaikh Motor seizure (HCC) 03/16/2019 INFO GAINED FROM: /[facility] ED VISIT --- CAREN GILMAN DO Rectus diastasis [facility]/Heidy Jara MD Present with small wide necked perumbical ventral containing fat. Second degree burn of foot 04/23/2018 Right Foot - [facility] Sleep apnea Stroke (HCC) 2000 mild Tremor Past Surgical History Past Surgical History: Procedure Laterality Date Conner pH capsule placement 02/01/2017 Dr. Lobo BREAST REDUCTION 2000 bilateral [facility]-nonperforating gastritis ESOPHAGEAL MANOMETRY [...] normal mood and affect documented in this [id number] Emergency department Note* Nubia Garcia RN - 12/31/2023 9:30 PM EDT Pt does not want to take any more nitroglycerine as she says it upsets her stomach. Education provided and MD notified. [id number] Emergency department Note* Nubia Garcia RN - 12/31/2023 9:29 PM EDT Pt complaining of nausea. MD notified. Pt refusing all medications offered for nausea at this time. [id number] Physician Emergency department Note* Kindra Lopez CNP - 12/31/2023 9:19 PM EDT Images from the original note were not included. [facility] ED DIOMEDES Note: NAME: Reema Shah 48 y.o. CSN: [id number] PCP: Jeanie Ayala MD History: Chief Complaint: [...] she was sitting in her chair at [facility]. States pain in the left chest radiates [...] History: Diagnosis Date Acquired thrombocytopenia ([facility]) Neuro [facility]/Lopez Shaikh Acute kidney injury (HCC) 05/22/2018 [facility]/Jonatan Chiu DO Anxiety Arm abrasion 06/19/2019 INFO GAINED FROM: /[facility] ED VISIT NOTE --- AC GAO MD Calcaneal spur of right foot 2016 Documented on x-ray CKD (chronic kidney disease) Congestive heart failure (CHF) ([facility]) [facility]/Lopez Shaikh Contusion, hip 06/19/2019 INFO GAINED FROM: /[facility] ED VISIT NOTE --- AC GAO MD Depression Epilepsy ([facility]) 08/06/2011 [facility]- [facility]. Chopra Epilepsy ([facility]) 1994 Facet degeneration of lumbar region 10/14/2018 [facility]/Jono ALEXIS, Moi Mild facet degenerative changes seen in the lower lumbar spine Fatty liver [facility]/Joe Mendieta MD Mild fibrofatty changes of the liver Fluid collection (edema) in the arms, legs, hands and feet 03/09/2018 Dr valentina Chopra Gastritis determined by endoscopy 12/29/2016 Dr. GonzalezFbhcvy-Qwbgyekej-uxbhmwejmgkmy nonbleeding with biopsy 1 para 1 Hepatic steatosis [facility]/Heidy Jara MD Mild Hiatal hernia 12/29/[address] Lobo grade 4 Hypercholesterolemia [facility]/Jonatan Chiu DO Hypertension 2000 2000-present Insomnia [facility]/Lopez Shaikh Kidney stone [facility]/Lopez Shaikh Laceration of head 06/19/2019 INFO GAINED FROM: /[facility] ED VISIT NOTE --- AC GAO MD Lung nodule 12/15/2017 0.5 cm pleural based nodule in right middle lobe. Mild linear atelectasis Mitral valve prolapse [facility]/Lopez Shaikh Motor seizure (HCC) 03/16/2019 INFO GAINED FROM: /[facility] ED VISIT --- BLAKE STEELECAREN Rectus diastasis [facility]/Heidy Jara MD Present with small wide necked perumbical ventral containing fat. Second degree burn of foot 04/23/2018 Right Foot - [facility] Sleep apnea Stroke (HCC) 2000 mild Tremor PMSx: Past Surgical History: Procedure Laterality Date Conner pH capsule placement 02/01/2017 Dr. Lobo BREAST REDUCTION 2000 bilateral [facility] hiatal her[facility]-nonperforating gastritis ESOPHAGEAL MANOMETRY [...] All other components within normal limits Narrative: [facility] has implemented the eGFR [...] Procedure Abnormality Status --------- ------ CBC Auto Differential[[id number]] Abnormal Final result Please view results for [...] Kindra Lopez CNP ED Advanced Practice Provider [facility] Emergency Department (Please note that portions of this note have been completed with a voice recognition software. Efforts were made to correct any errors, but occasionally words are mis-transcribed.) Kindra Lopez CNP 12/31/235 [id number] Emergency department Triage note* Nubia Garcia RN - 12/31/2023 8:23 PM EDT Per EMS patient reporting 10/10 chest pain that radiates across her back that started about an hourago. [id number] Emergency department Note* Nubia Garcia RN - 12/31/2023 8:20 PM EDT Per EMS patient chest pain started an hour ago and it radiates across her back. Per ems they gave her [address] [id number] Telephone encounter Note* Telephone Encounter - Mejia Cullen MD - 12/28/2023 4:24 PM EDT Powerchair and therapy orders reprinted, signed and refaxed to fax listed. [id number] Miscellaneous Notes* Telephone Encounter - Mejia Cullen MD - 12/28/2023 4:24 PM EDT Powerchair and therapy orders reprinted, signed and refaxed to fax listed. * Telephone Encounter - She Chau - 12/28/2023 11:06 AM EDT Name of caller: Toña Contact phone number: [phone] Relationship to Patient: patient Provider: Dr. Cullen [...] states both need to be faxed to [phone]. Please advise. Best time of day caller can be reached: any Patient advised that office/PCP has 24-48 business hours to return their call: N/A documented in this encounterSMemorial [id number] Telephone encounter Note* Telephone Encounter - Noellegrace Cari Chau - 12/28/2023 11:06 AM EDT Name of caller: Toña Contact phone number: [phone] Relationship to Patient: patient Provider: Dr. Cullen [...] states both need to be faxed to [phone]. Please advise. Best time of day caller can be reached: any Patient advised that office/PCP has 24-48 business hours to return their call: N/A [facility] [id number] Telephone encounter Note* Telephone Encounter - Maxine Oconnell - 12/22/2023 2:10 PM EST Name of caller: Dimas Contact phone number: [phone] Relationship to Patient: [facility] Provider: Dr. Cullen Practice: Neurology Chief Complaint/Reason for Call: Dimas states that the patient is now living at their facility and they will be unable to transport the patient that far to her appointments. Dimas is requesting that the patient's medical history/physical reports be faxed to them at [phone] so that they can referher to a closer provider. Please be advised. Best time of day caller can be reached: any Patient advised that office/PCP has 24-48 business hours to return their call: N/A [facility] [id number] Miscellaneous Notes* Telephone Encounter - Maxine Oconnell - 12/22/2023 2:10 PM EST Name of caller: Dimas Contact phone number: [phone] Relationship to Patient: [facility] Provider: Dr. Cullen Practice: Neurology Chief Complaint/Reason for Call: Dimas states that the patient is now living at their facility and they will be unable to transport the patient that far to her appointments. Dimas is requesting that the patient's medical history/physical reports be faxed to them at [phone] so that they can referher to a closer provider. Please be advised. Best time of day caller can be reached: any Patient advised that office/PCP has 24-48 business hours to return their call: N/A documented in this [facility]01-31-2024 Emergency department Note* Larry Eugene DO [...] ANGIO W AND WO IV CONTRAST 05/09/2022 [facility] CT HEAD ANGIO W AND WO IV CONTRAST 05/09/2022 CT HEAD ANGIO W AND WO IV CONTRAST 05/09/2022 [facility] OTHER SURGICAL HISTORY 01/30/2022 [...] Otis Prather 11/17/2023 5:56 PM Dictation workstation: [id number] CT thoracic spine wo IV contrast Final [...] Larry Eugene DO 11/17/231910 [facility] Work Phone: 1(485) 389-385101-31-2024 Physician Emergency department Note* Larry Eugene DO [...] other specified conditions History of seizure Thrombocytopenia ([facility]/HCC) Unspecified kidney failure 04/08/2021 Renal failure Valproic [...] ANGIO W AND WO IV CONTRAST 05/09/2022 [facility] CT HEAD ANGIO W AND WO IV CONTRAST 05/09/2022 CT HEAD ANGIO W AND WO IV CONTRAST 05/09/2022 [facility] OTHER SURGICAL HISTORY 01/30/2022 [...] Otis Prather 11/17/2023 5:56 PM Dictation workstation: [id number] CT thoracic spine wo IV contrast Final [...] care. Procedure Procedures Larry Eugene DO 11/17/231910 [facility] Work Phone: 1(199) 128-162301-24-2024 History of Present illness Narrative* Valentina Munoz [...] ANGIO W AND WO IV CONTRAST 05/09/2022 [facility] CT HEAD ANGIO W AND WO IV CONTRAST 05/09/2022 CT HEAD ANGIO W AND WO IV CONTRAST 05/09/2022 [facility] OTHER SURGICAL HISTORY 01/30/2022 [...] Last Dose Status acetaminophen 500 mg capsule [id number] No Take 1 capsule (500 mg) by mouth every 6 hours if needed. Barbara Chamberlain MD Unknown Active albuterol 90 mcg/actuation inhaler [id number] No Inhale 2 puffs every 6 hours if needed. Barbara ProviderMD Past Month Active allopurinol (Zyloprim) 300 mg tablet [id number] No Take 1 tablet (300 mg) by mouth once daily. Barbara ProviderMD 10/13/2023 Active amLODIPine (Norvasc) 10 mg tablet [id number] No Take 1 tablet (10 mg) by mouth once daily. HistoricalProMD jia Unknown Active atorvastatin (Lipitor) 20 mg tablet [id number] No Take 1 tablet (20 mg) by mouth once daily at bedtime. Barbara Chamberlain MD Unknown Active benzonatate (Tessalon) 200 mg capsule [id number] No Take 1 capsule (200 mg) by mouth if needed for cough. Do not crush or chew. Historical Provider, MD Unknown Active busPIRone (Buspar) 10 mg tablet [id number] No Take 1 tablet (10 mg) by mouth 3 times a day as needed.Barbara Chamberlain MD Unknown Active calcium carbonate (Tums) 200 mg calcium chewable tablet [id number] No Chew 1 tablet (500 mg) once daily. Barbara Chamberlain MD Unknown Active calcium carbonate-vitamin D3 600 mg-10 mcg (400 unit) tablet [id number] No Take 1 tablet by mouth 2 times a day. Barbara Chamberlain MD Unknown Active carbamide peroxide (Debrox) 6.5 % otic solution [id number] No Administer into affected ear(s). USE ASDIRECTED Barbara Chamberlain MD Not Taking Active carboxymethylcellulose PF 1 % ophthalmic solution [id number] No Administer 2 drops into both eyes if needed. Q1HR Barbara Chamberlain MD Unknown Active cholecalciferol (Vitamin D-3) 1,250 mcg (50,000 unit) capsule [id number] No Take 1 capsule (50,000 Units) by mouth once a week. Barbara Chamberlain MD Unknown Active clotrimazole-betamethasone (Lotrisone) cream [id number] No Apply 1 Application topically twice a day.Barbara Chamberlain MD Unknown Active cyanocobalamin, vitamin B-12, (Vitamin B-12) 1,000 mcg tablet extended release [id number] No Take 1 tablet (1,000 mcg) by mouth once daily. Barbara Chamberlain MD Unknown Active diclofenac sodium 1 % kit [id number] No Apply 1 Application topically in the morning and 1 Application before bedtime. Barbara Chamberlain MD Unknown Active divalproex (Depakote ER) 500 mg 24 hr tablet [id number] No Take 1 tablet (500 mg) by mouth once dailyat bedtime. Barbara Chamberlain MD Unknown Active divalproex (Depakote) 250 mg EC tablet [id number] No Take 1 tablet (250 mg) by mouth once daily in the morning. Barbara Chamberlain MD 10/14/2023 Active famotidine (Pepcid) 20 mg tablet [id number] No Take 1 tablet (20 mg) by mouth once daily. Barbara Chamberlain MD Unknown Active guaiFENesin (Humibid 3) 400 mg tablet [id number] No Take 1 tablet (400 mg) by mouth every 6 hours if needed for cough. Barbara Chamberlain MD Unknown Active ibuprofen 600 mg tablet [id number] Take 1.5 tablets (900 mg) by mouth every 8 hours if needed for moderate pain (4 - 6) for up to 30 doses. Matthew Pérez MD Active levETIRAcetam (Keppra) 500 mg tablet [id number] No Take 1 tablet (500 mg) by mouth 2 times a day. Barbara Chamberlain MD 10/14/2023 Active levonorgestrel (Mirena) 21 mcg/24 hours (8 yrs) 52 mg IUD [id number] Matthew Pérez MD Active levothyroxine (Synthroid, Levoxyl) 25 mcg tablet [id number] No Take 1 tablet (25 mcg) by mouth once daily. Barbara Chamberlain MD Unknown Active lisinopril 20 mg tablet [id number] No Take 1 tablet (20 mg) by mouth 2 times a day. Barbara Chamberlain MD Unknown Active loratadine (Claritin) 10 mg tablet [id number] No Take 1 tablet (10 mg) by mouth. Before meals Barbara Chamberlain MD Taking Active Discontinued 11/08/23 1043 LORazepam (Ativan) 1 mg tablet [id number] Take 2 tablet twice daily and 1 tab daily PRN Jeanie Ayala MD Active magnesium oxide (Mag-Ox) 400 mg tablet [id number] No Take 1 tablet (400 mg) by mouth once daily. Barbara Chamberlain MD Unknown Active meclizine (Antivert) 25 mg tablet [id number] No Take 1-2 tablets (25-50 mg) by mouth 3 times a day asneeded (otitis media). Barbara Chamberlain MD Taking Active melatonin 5 mg tablet [id number] No Take 1 tablet (5 mg) by mouth once daily at bedtime. Barbara Chamberlain MD Not Taking Active methyl salicylate-menthol (Icy Hot) 29-7.6 % ointment ointment [id number] No Apply 1 Application topically every 12 hours if needed. Barbara Chamberlain MD Taking Active metoprolol tartrate (Lopressor) 25 mg tablet [id number] No Take 1 tablet (25 mg) by mouth 2 times a day. Jeanie Ayala MD Unknown Active omeprazole (PriLOSEC) [address] capsule [id number] No Take 1 capsule (20 mg) by mouth once daily. Historical Provider, Unknown Active potassium chloride ER (Micro-K) 10 mEq ER capsule [id number] No Take 2 capsules (20 mEq) by mouth twice a day. Historical Provider, Unknown Active primidone (Mysoline) 50 mg tablet [id number] No Take 2 tablets (100 mg) by mouth 2 times a day. Historical Provider, Unknown Active sennosides-docusate sodium (Lani-Colace) 8.6-50 mg tablet [id number] No Take 2 tablets by mouth once daily as needed for constipation. Historical Provider, Unknown Active sertraline (Zoloft) 100 mg tablet [id number] No Take 1 tablet (100 mg) by [...] as well as the bladder, recommend referring [facility] minimally invasive lab engineer in [place] for surgery. documented in this [facility] Work Phone: 1(559) 659-885501-22-2024 History of Present illness Narrative* Jeanie Ayala [...] 1 MO MED REFILL documented in this [facility] Work Phone: 1(672) 607-574501-12-2024 History of Present illness Narrative* Matthew Pérez [...] COMPLETIONIS NO LONGER AVAILABLE. documented in this [facility] Work Phone: 1(998) 405-170101-08-2024 History of Present illness Narrative* Mejia Cullen MD - 10/25/2023 10:30 AM EST Images from the original note were not included. [facility] [address] [place] [id number] Dept: [phone] Dept Loc: [phone] [facility] Consultation for Reema Shah : 1975 Today's Date: 10/25/2023 PCP: Jeaine Ayala Patient was seen accompanied by living [...] Has powerchair. Lives in assisted living facility ([facility]). Moving to [facility] next month. Workup: CT Brain, CT [...] Holter Monitor and Nuclear Stress Test at [facility] 10/05/23 for pre-op testing were negative. CT Head 09/16/23 (report only, [facility]) The ventricles, cisterns and sulci are prominent, [...] clear. CT C spine 08/25/23 (report only, [facility]) Cervical spine: Alignment: Stable alignment. Cranial cervical [...] Physical Medicine and Rehabilitation documented in this [facility]01-08-2024 History of Present illness Narrative* Mejia Cullen MD - 10/25/2023 10:30 AM EST Images from the original note were not included. [facility] [address] [place] [id number] Dept: [phone] Dept Loc: [phone] [facility] Consultation [...] Has powerchair. Lives in assisted living facility ([facility]). Moving to [facility] next month. Workup: CT Brain, CT [...] Holter Monitor and Nuclear Stress Test at [facility] 10/05/23 for pre-op testing were negative. CT Head 09/16/23 (report only, [facility]) The ventricles, cisterns and sulci are prominent, [...] clear. CT C spine 08/25/23 (report only, [facility]) Cervical spine: Alignment: Stable alignment. Cranial cervical [...] Physical Medicine and Rehabilitation documented in this [facility]01-08-2024 Miscellaneous Notes* Addendum Note - Mejia Cullen MD - 10/25/2023 10:30 AM ESTAddended by: MEJIA CULLEN on: 11/02/2023 02:57 PM Modules accepted: Orders documented in this [facility]01-08-2024 Note* Addendum Note - Mejia Cullen MD - 10/25/2023 10:30 AM ESTAddended by: MEJIA CULLEN on: 11/02/2023 02:57 PM Modules accepted: Orders [facility] [id number] Emergency department Note* Lit Ledezma MD - 10/02/2023 1:06 AM EST Patient is a 48-year-old female who is a permanent resident of the [facility]. She presents with a chief complaint [...] thinners. She can be returned to the [facility]. Diagnoses as of 10/02/23130 Fall, initial encounter Lit Ledezma MD 10/02/23130 [facility] Work Phone: 1(490) 250-486012-16-2023 Physician Emergency department Note* Lit Ledezma MD - 10/02/2023 1:06 AM EST Patient is a 48-year-old female who is a permanent resident of the [facility]. She presents with a chief complaint [...] thinners. She can be returned to the [facility]. Diagnoses as of 10/02/23130 Fall, initial encounter Lit Ledezma MD 10/02/23130 [facility] Work Phone: 1(181) 662-513912-05-2023 History of Present illness Narrative* Everett Haywood [...] ANGIO W AND WO IV CONTRAST 05/09/2022 [facility] EM[facility]Y [facility] CT HEAD ANGIO W AND WO IV CONTRAST 05/09/2022 CT HEAD ANGIO W AND WO IV CONTRAST 05/09/2022 [facility] OTHER SURGICAL HISTORY 01/30/2022 [...] performed using a different testing methodology at [facility] than at other [facility]. Direct result comparisons should only be made [...] performed using a different testing methodology at [facility] than at other [facility]. Direct result comparisons should only be made [...] performed using a different testing methodology at [facility] than at [facility]. Direct result comparisons should only be made [...] is performed using different testing methodology at [facility] than at other system hospitals. Direct result [...] is performed using different testing methodology at [facility] than at other system hospitals. Direct result [...] 13-18 <7.5 7-12 <8.0 0- 6 7.5-8.5 [employer]. Diabetes Care 33(S1), Oct 2009. 08/05/2021 08:50 AM 5.2 % Final Comment: Diagnosis of Diabetes-Adults Non-Diabetic: < or = 5.6% Increased risk for developing diabetes: 5.7-6.4% Diagnostic of diabetes: > or = 6.5% . Monitoring of Diabetes Age (y) Therapeutic Goal (%) Adults: >18 <7.0 Pediatrics: 13-18 <7.5 7-12 <8.0 0- 6 7.5-8.5 [employer]. Diabetes Care 33(S1), Oct 2009. [...] We are requesting nuclear stress test and quality assurance monitor final. If nuclear stress test is negative for ischemia, then the patient can undergo the procedure with low risk of cardiovascular complications. Ideally patient should remain on anti-hypertensive medication up to the day of the procedure. This note was transcribed using the GLO Dictation system. There may be grammatical, punctuation,or verbiage errors that occur with voice recognition programs. Counseling greater than 50% of visit regarding all cardiac issues. Thank you, Dr. Ayala and Dr. Pérez, for allowing me to participate in the care of this patient. Please do not hesitate to contact me with any further questions or concerns. Everett Haywood MD Cardiology documented in this [facility] Work Phone: 1(875) 590-364511-30-2023 Emergency department Note* Dimas Lin MD - 09/16/2023 9:09 AM EST Chief Complaint: FALL This is a 48-year-old female who is a full-time skilled nursing resident. Apparently she was getting out of [...] Ky Ackerman 09/16/2023 10:19 AM Dictation workstation: [id number] CT head wo IV contrast Final Result No acute intracranial pathology. Signed by: Ky Ackerman 09/16/2023 10:18 AM Dictation workstation: [id number] Procedures Medical Decision Making Guamanian diagnoses head contusion skull fracture intracerebral hemorrhage [...] Lin MD 09/16/23 1028 documented [facility] Work Phone: 1(771) 191-524811-30-2023 Physician Emergency department Note* Dimas Lin MD - 09/16/2023 9:09 AM EST Chief Complaint: FALL This is a 48-year-old female who is a full-time skilled nursing resident. Apparently she was getting out of [...] is awake and coherent she has a [place] Coma Scale 15 HENT: Head: Normocephalic. Comments: [...] Ky Ackerman 09/16/2023 10:19 AM Dictation workstation: [id number] CT head wo IV contrast Final Result No acute intracranial pathology. Signed by: Ky Ackerman 09/16/2023 10:18 AM Dictation workstation: [id number] Procedures Medical Decision Making Guamanian diagnoses head contusion skull fracture intracerebral hemorrhage [...] initial encounter Dimas Lin MD 09/16/23 1028 [facility] Work Phone: 1(106) 316-149011-22-2023 History of Present illness Narrative* Jeanie Ayala MD - 09/08/2023 11:15 AM EST Subjective Patient ID: Reema Shah is a 47 y.o. female who presents for Follow-up (6 MONTH F/U - ONLY LABS DONE WERE ORDERED BY TIMBER TRIMMER DR. PÉREZ - PENDING LAPAROSCOPY AND IUD [...] in oct documented in [facility] Work Phone: [phone]) 285-368911-15-2023 Miscellaneous Notes* Result Encounter Note - Matthew Pérez MD - 09/01/2023 8:15 AM EST Reema's EKG came back abnormal so she is going to need to get cardiac clearance as well but in the order documented [facility] Work Phone: 1([phone]) 897-882411-15-2023 Progress note* Result Encounter Note - Matthew Pérez MD - 09/01/2023 8:15 AM EST Reema's EKG came back abnormal so she is going to need to get cardiac clearance as well but in the order [facility] Work Phone: [phone] 955-284611-08-2023 Emergency department Note* Abhi Teran DO Maurice [...] to the emergency department by squad from [facility] secondary to a mechanical fall. 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 [place] Attacher strengths are equal. She can flex and [...] Abhi Richards DO 08/25/231334 documented in this encounterC[facility] Work Phone: [phone]) 282-763711-08-2023 Physician Emergency department Note* Abhi Richards DO [...] to the emergency department by squad from [facility] secondary to a mechanical fall. 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 [place] Attacher strengths are equal. 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 Also when does Dr Chopra want to see her? 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 Also when does Dr Chopra want to see her? Best time of day caller can be reached: AM Patient advised that office/PCP has 24-48 business hours to return their call: Yes documented in this [facility]11-06-2023 Telephone encounter Note* Telephone Encounter - [...] to amdose of Depakote. FYI to provider. [facility] HospitalSjfolh05-43-4173 Miscellaneous Notes* Telephone Encounter - Laron Curiel [...] Name of caller: Ana Contact phone number: [phone] Relationship to Patient: [facility] Provider: Dr Chopra Practice: [facility] Neurology [place] Chief Complaint/Reason for Call: Ana states she [...] - 08/20/2023 2:26 PM EDT Call to [facility]. Spoke with Ana. Ana faxed form to office. Form is in providers basket. * Telephone Encounter - Latesha Krause MA - 08/20/2023 1:36 PM EDT Form is being faxed * Telephone Encounter - Valentina Chopra MD - 08/20/2023 1:27 PM EDT That form is lost. Can they re-fax it * Telephone Encounter - Haseeb Tom - 08/20/2023 11:36 AM EDT [facility] is calling to check on the status of the request. * Telephone Encounter - Latesha Krause MA - 08/19/2023 2:34 PM EDT Form is on providers desk * Telephone Encounter - Rachel Birmingham - 08/19/2023 2:27 PM EDT Name of caller: Ana Contact phone number: [phone] Relationship to Patient: [place] Provider: Dr. Chopra Practice: Neurology Chief Complaint/Reason [...] return their call: No documented in this [facility]11-06-2023 Telephone encounter Note* Telephone Encounter - Mathew Pearson - 08/23/2023 9:21 AM EST Name of caller: Ana Contact phone number: [phone] Relationship to Patient: [facility] Provider: Dr Chopra Practice: [facility] Neurology [place] Chief Complaint/Reason for Call: Ana states she would like to speak to the office directly regarding pt's medication. Please advise. Best time of day caller can be reached: any Patient advised that office/PCP has 24-48 business hours to return their call: N/A [place] [id number] Telephone encounter Note* Telephone Encounter - Latesha Krause MA - 08/23/2023 8:49 AM EST Lm for Ana to call the office back, please relay providers message. [place] [id number] Telephone encounter Note* Telephone Encounter - Valentina [...] falls clinic. Please get those appointments scheduled [facility] HospitalJchjpt20-95-2689 Telephone encounter Note* Telephone Encounter - Laron Curiel LPN - 08/20/2023 2:26 PM EDT Call to [facility]. Spoke with Ana. Ana faxed form to office. Form is in providers basket. [place] [id number] Telephone encounter Note* Telephone Encounter - Latesha Krause MA - 08/20/2023 1:36 PM EDT Form is being faxed [place] [phone] Telephone encounter Note* Telephone Encounter - Valentina Chopra MD - 08/20/2023 1:27 PM EDT That form is lost. Can they re-fax it [place] [id number] Telephone encounter Note* Telephone Encounter - Haseeb Tom - 08/20/2023 11:[address] [facility] is calling to check on the status of the request. [place] [id number] Telephone encounter Note* Telephone Encounter - Latesha Krause MA - 08/19/2023 2:34 PM EDT Form is on providers desk [place] [phone] Telephone encounter Note* Telephone Encounter - Rachel Birmingham - 08/19/2023 2:27 PM EDT Name of caller: Naa Contact phone number: [phone] Relationship to Patient: [facility] Provider: Dr. [...] business hours to return their call: No [place] [phone] History of Present illness Narrative* Valentina Chopra MD - 08/19/2023 10:30 AM EDT Images from the original note were not included. [facility] NEUROSCIENCE [address] [facility] [address] Dept: [phone] Dept Loc: [phone] Valentina Chopra MD Thank you for your [...] Psoriasis, Repeated falls, and Thrombocytopenia ([facility]). Past Surgical History: has a past surgical [...] # Dispenser Refill Daily Dose* Pymt Type [employer]ER 08/01/2023 07/13/2023 1 Lorazepam 1 Mg Tablet 150.00 30 Me Tav [id number] Par (1165) 0 5.00 LME [place] 07/30/2023 07/13/2023 1 Lorazepam 1 Mg Tablet 150.00 30 Me Tav [id number] Par (1165) 0 5.00 [place] 07/06/2023 07/06/2023 1 Lorazepam 1 Mg Tablet 120.00 30 Me Tav [id number] Par (1165) 0 4.00 [place] 06/15/2023 06/07/2023 1 Lorazepam 1 Mg Tablet 105.00 21 Me Tav [id number] Par (1165) 2 5.00 [place] 06/07/2023 06/07/2023 1 Lorazepam 1 Mg Tablet 45.00 7 Me Tav [id number] Par (1165) 0 6.43 [place] 05/13/2023 05/04/2023 1 Lorazepam 1 Mg Tablet 120.00 24 Me Tav [id number] Par (1165) 4 5.00 [place] 05/07/2023 05/04/2023 1 Lorazepam 1 Mg Tablet 30.00 6 Me Tav 597536 Par (1165) 0 5.00 [place] 05/01/2023 04/14/2023 1 Lorazepam 1 Mg Tablet 28.00 7 Me Tav 083772 Par (1165) 3 4.00 [place] 04/24/2023 04/14/2023 1 Lorazepam 1 Mg Tablet 28.00 7 Me Tav 486926 Par (1165) 2 4.00 [place] 04/18/2023 04/14/2023 1 Lorazepam 1 Mg Tablet 28.00 7 Me Tav 074559 Par (1165) 1 4.00 [place] 04/14/2023 04/14/2023 1 Lorazepam 1 Mg Tablet 28.00 7 Me Tav 688225 Par (1165) 0 4.00 [place] 04/05/2023 03/31/2023 1 Lorazepam 1 Mg Tablet 30.00 6 Me Tav 559096 Par (1165) 1 5.00 [place] 03/31/2023 03/31/2023 1 Lorazepam 1 Mg Tablet 30.00 6 Me Tav 376388 Par (1165) 0 5.00 [place] 03/22/2023 12/15/2022 1 Lorazepam 1 Mg Tablet 30.00 6 Me Tav 993489 Par (1165) 14 5.00 [place] 03/15/2023 12/15/2022 1 Lorazepam 1 Mg Tablet 30.00 6 Me Tav [id number] Par (1165) 13 5.00 [place] Allergies: [...] of the exam. 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 Summary: [...] CT Brain, 15 May 2021 ACCESSION NUMBER(S): [id number] ORDERING CLINICIAN: LARRY EUGENE TECHNIQUE: CT of [...] Type of Exam?:Initial COMPARISON: CT brain from [place] of 12/01/2020. TECHNIQUE: Noncontrast CT of the [...] suspicious change from 12/01/2020 CT brain at [place]. Nini Garcia MD - 12/22/2022 Patient Name: REEMA SHAH STUDY: CT HEAD WO CONTRAST; 08/24/2022 7:43 am INDICATION: fall, history of thrombocytopenia, abrasion L parietal scalp . COMPARISON: 05/09/2022 ACCESSION NUMBER(S): [id number] ORDERING CLINICIAN: ANDRES HUSSEIN TECHNIQUE: Unenhanced CT [...] head injury . COMPARISON: 11/26/2022 ACCESSION NUMBER(S): [id number] ORDERING CLINICIAN: LARRY EUGENE TECHNIQUE: Noncontrast axial [...] head injury . COMPARISON: None. ACCESSION NUMBER(S): [id number] ORDERING CLINICIAN: LARRY EUGENE TECHNIQUE: Axial CT [...] unspecified COMPARISON: CT head 01/21/2023 ACCESSION NUMBER(S): [id number] ORDERING CLINICIAN: CAREN GILMAN TECHNIQUE: Noncontrast CT [...] TSH VITAMIN B12: No results found for: XFYIPSAR68 FERRITIN: No results found for: FERRITIN ---- No results found for: PHENYTOIN, PHENOBARB, VALPROATE, CBMZ No components found for: TOPIRANo results found for: OXCARBAZE, OXCARB @LASTAPPOINTMENTTHISPROV@ No image results found. @RESULTINGLABINFO@ No results found for: LEVETIRACETA, FERRITIN, CRP, CHARLY, ANCA No results found for: KENNY, IMMUNOGLOBUL, OLIGOBANDS No results found for: RMD33IB, HEPCAB No results found for: CRP, ANATITER, [...] she see our epilepsy team here at [facility] to try to find a better control [...] and arranging for studies. documented in this [facility]11-02-2023 Miscellaneous Notes* Addendum Note - Valentina Chopra MD - 08/19/2023 10:30 AM EDTAddended by: VALENTINA CHOPRA on: 08/19/2023 11:26 AM Modules accepted: Orders documented in this [facility]11-02-2023 Note* Addendum Note - Valentina Chopra MD - 08/19/2023 10:30 AM EDTAddended by: VALENTINA CHOPRA on: 08/19/2023 11:26 AM Modules accepted: Orders [facility] [id number] History of Present illness Narrative* Matthew Pérez [...] and a chest x-ray documented in this encounterC[facility] Work Phone: [phone] 688-140910-27-2023 Emergency department Note* Carmelina Brennan RN - 08/13/2023 7:12 AM EDT [email or web address]. Pt has chronic hypertension took medication this AM documented in this [facility] Work Phone: 1([phone]) 740-423610-27-2023 Emergency department Triage note* Carmelina Brennan RN - 08/13/2023 7:12 AM EDT Pt sent from the [facility] with hypertension. Pt has chronic hypertension took medication this AM [facility] Work Phone: [phone] 404-920610-07-2023 Emergency department Note* Caren Gilman DO - 07/24/2023 10:58 PM EDT 47-year-old female presents from the [facility] after she slipped in the bathroom and [...] Caren Avina DO 07/25/2333 documented in this encounterC[facility] Work Phone: 1([phone]) 557-768510-07-2023 Physician Emergency department Note* Caren Gilman DO - 07/24/2023 10:58 PM EDT 47-year-old female presents from the [facility] after she slipped in the bathroom and [...] Visit None DO Caren Avina DO 07/25/2333 [facility] Work Phone: 1(517) 615-734709-26-2023 History of Present illness Narrative* Jeanie Ayala [...] period since her IUD removed by her TIMBER TRIMMER Review of Systems Constitutional: Negative. Negative for [...] 13-18 <7.5 7-12 <8.0 0- 6 7.5-8.5 [employer]. Diabetes Care 33(S1), Oct 2009. Assessment/Plan Problem List Items Addressed This Visit Anxiety Relevant Medications LORazepam (Ativan) 1 mg tablet Hypertension Other Visit Diagnoses Vagina bleeding - Primary Dysuria Relevant Orders POCT UA Automated manually resulted (Completed) To see her own coach,pt agreed OARRS HAS BEEN REVIEWED AND IS [...] . Fu 1 mo documented in this encounterC[facility] Work Phone: 1(717) 902-750207-25-2023 History of Present illness NarrativeAgree with CC [...] back pain and T-spine fracture November 2021. [facility] Work Phone: [phone]) 220-174507-18-2023 History of Present illness Narrative* Jeanie Ayala [...] 13-18 <7.5 7-12 <8.0 0- 6 7.5-8.5 [employer]. Diabetes Care 33(S1), Oct 2009. [...] Fu 1 mo bw documented in this [facility] Work Phone: 1(186) 918-829005-11-2023 History of Present illness Narrative* Jeanie Ayala [...] 13-18 <7.5 7-12 <8.0 0- 6 7.5-8.5 [employer]. Diabetes Care 33(S1), Oct 2009. [...] in office 1 week documented in this [facility] Work Phone: 1(234) 755-543005-10-2023 History of Present illness Narrative* She is here for follow-up secondary to chronic kidney disease with a baseline creatinine of 1.1-1.4, history of hypertension with some recent hypotension * At her last visit we stopped her vitamin D lisinopril doxazosin and ergocalciferol * We also stopped her PPI * She has been having her blood pressure checked at the [facility] * Her blood pressure is ranging on [...] fingertips and also chest pain at [facility] * Pain is pretty much everywhere. * Wasin ER with a BP of 258/1502 but in ER was 168/90. * No other issues noted. [facility] Mohinder 3 DO Work Phone: [phone]) 218-418204-06-2023 History of Present illness Narrative* She is [...] polypharmacy * She currently resides at the [facility] * She has knownshe has kidneyfailure since sshe was 25 y/o. * Does not take NSAIDs * [facility] and [facility] Mohinder 3 DO Work Phone: [phone]) 526-465103-31-2023 History of Present illness NarrativeAgree with CC [...] back pain and T-spine fracture November 2021. [facility] Work Phone: [phone]) 710-504203-28-2023 History of Present illness Narrative* Sammie Iglesias MD - 01/12/2023 11:15 AM EDT Subjective Patient ID: Reema Shah is a 47 y.o. female who presents for Follow-up (VIRTUAL [phone](NURSE WITH ST [facility]) - F/U ER DX [...] congestion Otalgia of both ears Relevant Medications gkutevym-oljwqyyas-PY (Cortisporin) otic solution Acute cystitis with hematuria TEST RESULTS WERE DISCUSSED. ADVISED TO FINISH THE COURSE OF MACROBID. OFFERED A COURSE OF PO PREDNISONE TX, PT REFUSED. ADVISED TO USE THE ALBUTEROL MDI SC FOR COUGH. PT. WAS INSTRUCTED TO INCREASE [...] FOR F/U ON COUGH. documented in this encounterC[facility] Work Phone: [phone]) [phone] Instructions* Patient Instructions* Sammie Iglesias MD - 01/12/2023 11:15 AM EDT 3 WEEKS IN PERSON FOR F/U ON COUGH. documented in this [facility]Un[facility] Work Phone: [phone]) 478-659203-01-2023 History of Present illness NarrativeAgree with CC as noted, Elle is a pleasant 47-year-old female arrived in wheelchair from [facility] for follow-up of right knee pain. [...] low back pain and T-spine fracture November 2021.[facility] [address] Work Phone: 1(817) 852-714302-15-2023 NoteMessage REEMA BRITTNYHENRY canceled today . Patient cancelled initial evaluation this date d/t illness. Signatures Electronically signed by : Trice Tejada, PT; Dec 02 2022 12:28PM EST (Author) [id number] Chief complaint Narrative - Reported* An interactive [...] SHE HAS NOT BEEN TESTED FOR COVID -[facility] Work Phone: [phone]) 524-369301-27-2023 History of Present illness Narrative* 47-year-old lady [...] orthopnea/PND/lower extremity edema. Denies any syncopal episode [facility] Work Phone: 1(213) 588-129001-20-2023 History of Present illness Bob is a [...] that was not further pursued for unclear reasons.[address] Work Phone: [phone] 186-329412-01-2022 History of Present illness Bob is a [...] IUD was put in to help with endometriosis[address] Work Phone: [phone] History of Present illness NarrativeAgree with CC as noted. Rosa Elena is a pleasant 47-year-old female accompanied by staff member from the assisted [facility] for reevaluation of right knee pain. Patient [...] IcyHot because she believes this provides better relief.[facility] [address] Work Phone: [phone]) 777-990311-07-2022 History of Present illness NarrativeReema is a pleasant 47-year-old female that arrives from assisted [facility] for recheck of bilateralknee pain. Patient states [...] in the packet from assisted living provided today.[facility] [address] Work Phone: 1([phone]) 158-348611-01-2022 History of Present illness NarrativeAgree with CC [...] aide from her assisted living for today's visit.[facility] Orthopedics and Sports [facility] 300 Work Phone: [phone] History of Present illness Narrative* 47-year-old lady [...] orthopnea/PND/lower extremity edema. Denies any syncopal episode [facility] Work Phone: 1([phone]) 959-479810-24-2022 History of Present illness Narrative* 47-year-old lady [...] orthopnea/PND/lower extremity edema. Denies any syncopal episode [address] Work Phone: [phone] Chief complaint Narrative - Reported* An interactive audio and video telecommunication system which permits real time communications between the patient (at the originating site) and provider (at the distant site) was utilized to providethis telehealth service. * Verbal consent was requested and obtained from REEMA SHAH on this date, 12/03/2021 03:45 PM ,for a telehealth visit. * MEDICATION REFILL ATIVAN [facility] Work Phone: 1([phone]) 927-434102-16-2022 Chief complaint Narrative - Reported* An interactive audio and video telecommunication system which permits real time communications between the patient (at the originating site) and provider (at the distant site) was utilized to providethis telehealth service. * Verbal consent was requested and obtained from REEMA SHAH on this date, 12/03/2021 03:45 PM ,for a telehealth visit. * MEDICATION REFILL ATIVAN [facility] Work Phone: 1([phone]) 343-746701-18-2022 Chief complaint Narrative - Reported* An interactive [...] HAS BACK, B/L SHOULDER, AND NECK PAIN. [facility] Internal [facility] Work Phone: [phone]) 369-311201-18-2022 Chief complaint Narrative - Reported* An interactive [...] HAS BACK, B/L SHOULDER, AND NECK PAIN. -[facility] Work Phone: 1([phone]) 488-506409-13-2021 History of Present illness NarrativePatient is a [...] broke her nose. Patient has no concerns todayWspring mountain treatment center-[address] Work Phone: [phone]) [phone] History of Present illness Narrative* Patient presents today as Dr Ayala patient, resident at [facility].... * 1 follow up ER x 3 [...] following with [facility] in [place] and she had been filling up until sep 2020. Pt was seen at [facility] through March 2021 and so this [...] work up don t years ago in [place] but Les not see anything recently. she states she has been told to take tylenol for pain but this does not offer relief -[facility] Work Phone: [phone] History of Present illness Narrative* Ania Jordan MA - 03/27/2019 3:06 PM EDT Thank you for the update. * Jemma Figueroa RN - 03/27/2019 12:01 PM EDT Pt. returned CASSANDRA follow up message. Evaluated at [facility] on 03/18/19 after falling and hitting back of her head, denies loss of consciousness. Describes falling every two steps. C/o shaking I'm almost going into a seizure. At discharge from ED, ED MD contacted Neurology. Pt. returned to Eatlugsg379 mg po TID. Has not restarted Trokendi. Neuro attempting to complete preauth. on 03/17/19. Pt updated samples available from Neurologist on 03/17/19. Pt. initially did not remember sample availability - then described no transportation. Currently at [facility] room 120 bed #2. Plans to stay in SNF and [facility] after 30 day rehab for ambulation and balance. Phone [facility] , Left message with Milagro Donato/bonnie medical planner. Phoned Dr. Patino, Neurology, faced most recent SED visit plan and pt. Living arrangements - rehab. documented in this [id number] History of Present illness Narrative* F/U AFTER TEST * C/O LUQ PAIN, HAD A RING 5-6 YEARS AGO FOR GERD IN [place], STILL GET FREQUENT HEART CHEEMA * RUQ pain resolved [facility] Work Phone: [phone] History of Present illness Narrative* F/U AFTER TEST * C/O LUQ PAIN, HAD A RING 5-6 YEARS AGO FOR GERD IN [place], STILL GET FREQUENT HEART CHEEMA * RUQ pain resolved [facility] Work Phone: 1(241) 511-163702-03-2010 History of Present illness NarrativeF/U AFTER ER VISIT FOR FALL . HAD CT OF HEAD AND FACIAL BONES DONE WITH XR OF L KNEE AND WAS DX WITH NASAL FRACTURE. HAS DIZZINESS ON AND OFF , LASTING SEVERAL HOURS. B/L EAR PAIN 2-12/25.[facility] Work Phone: chief complaint Narrative - Reported1 MO MED RF PT CO B/L EAR PAIN TODAY AND NEEDS [facility] Work Phone: chivx complaint Narrative - ReportedFollow-up) re- evaluation of [...] accompanied by an aid, Basim, for the visit.[facility] 300 Work Phone: chief complaint Narrative - ReportedPT HERE FOR 1 MO F/U. PT WOULD LIKE A [facility]AL [facility] Work Phone: Evaluation note* Diagnosis [...] ear Impacted cerumen documented in this encounter [facility] Work Phone: Evaluation note* Diagnosis Anxiety Anxiety state, unspecified documented in this encounter [facility] Work Phone: [phone] note* Diagnosis Vagina bleeding- Primary Other specified noninflammatory disorder of vagina Dysuria Anxiety Anxiety state, unspecified Primary hypertension Unspecified essential hypertension documented in this encounter [facility] Work Phone: [phone] note* Diagnosis Anxiety- Primary Anxiety state, unspecified Fall, initial encounter documented in this encounter [facility] Work Phone: [phone] note* Diagnosis Chronic systolic (congestive) heart failure (CMS/HCC)- Primary Anxiety Anxiety state, unspecified Depression, major, single episode, severe (CMS/HCC) Generalized epilepsy (CMS/HCC) Unspecified epilepsy without mention of intractable epilepsy Sedative, hypnotic or anxiolytic dependence with withdrawal, unspecified (CMS/HCC) Stage 3a chronic kidney disease (CMS/HCC) Fatty liver Other chronic nonalcoholic liver disease Thrombocytopenia (CMS/HCC) Unspecified thrombocytopenia documented in this encounter [facility] Work Phone: [phone] note* Diagnosis Primary hypertension- Primary Unspecified essential hypertension Renal insufficiency Unspecified disorder of kidney and ureter documented in this encounter [facility] Work Phone: [phone] note* Diagnosis Pre-op exam- Primary Menorrhagia with irregular cycle Screen for STD (sexually transmitted disease) Screening examination for venereal disease Pelvic pain documented in this encounter [facility] Work Phone: Evaluation note* Diagnosis 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)- Primary Tremor Abnormal involuntary movements Frequent falls [facility] Diagnosis Pelvic pain Irregular bleeding Irregular menstrual cycle Preop testing Unspecified pre-operative examination Fall, initial encounter- Primary Pelvic pain Irregular bleeding Irregular menstrual cycle Preop testing Unspecified pre-operative examination documented in this encounter [facility] Work Phone: Evaluation note* Diagnosis Pelvic pain Irregular bleeding Irregular menstrual cycle Preop testing Unspecified pre-operative examination Preop testing Unspecified pre-operative examination Pelvic pain Irregular bleeding Irregular menstrual cycle Preop testing Unspecified pre-operative examination documented in this encounter [facility] Work Phone: [phone] note* Diagnosis Pelvic pain Irregular bleeding Irregular menstrual cycle Preop testing Unspecified pre-operative examination Preop testing Unspecified pre-operative examination Pelvic pain Irregular bleeding Irregular menstrual cycle Preop testing Unspecified pre-operative examination documented in this encounter [facility] Work Phone: Evaluation note* Diagnosis Pelvic pain Irregular bleeding Irregular menstrual cycle Preop testing Unspecified pre-operative examination Preop testing Unspecified pre-operative examination Pelvic pain Irregular bleeding Irregular menstrual cycle Preop testing Unspecified pre-operative examination documented in this encounter [facility] Work Phone: [phone] note* Diagnosis Pelvic pain Irregular bleeding Irregular menstrual cycle Preop testing Unspecified pre-operative examination Fatty liver- Primary Other chronic nonalcoholic liver disease Anxiety Anxiety state, unspecified Stage 3a chronic kidney disease (CMS/HCC) Hyperglycemia Other abnormal glucose Abnormal EKG Nonspecific abnormal electrocardiogram (ECG) (EKG) Chest pain, unspecified type Pelvic pain Irregular bleeding Irregular menstrual cycle Preop testing Unspecified pre-operative examination documented in this encounter [facility] Work Phone: [phone] note* Diagnosis Pelvic pain Irregular bleeding Irregular menstrual cycle Preop testing Unspecified pre-operative examination Contusion of head, unspecified part of head, initial encounter- Primary Fall, initial encounter Contusion of right elbow, initial encounter Abrasion of right elbow, initial encounter Pelvic pain Irregular bleeding Irregular menstrual cycle Preop testing Unspecified pre-operative examination documented in this encounter [facility] Work Phone: Evaluation note* Diagnosis Pelvic pain Irregular bleeding Irregular menstrual cycle Preop testing Unspecified pre-operative examination Tachycardia- Primary Unspecified tachycardia Preop testing Unspecified pre-operative examination Pelvic pain Irregular bleeding Irregular menstrual cycle Preop testing Unspecified pre-operative examination documented in this encounter [facility] Work Phone: Evaluation note* Diagnosis Pelvic pain Irregular bleeding Irregular menstrual cycle Preop testing Unspecified pre-operative examination Fall, initial encounter- Primary Pelvic pain Irregular bleeding Irregular menstrual cycle Preop testing Unspecified pre-operative examination documented in this encounter [facility] Work Phone: Evaluation note* Diagnosis Pelvic pain Irregular bleeding Irregular menstrual cycle Preop testing Unspecified pre-operative examination Preop testing Unspecified pre-operative examination Tachycardia Unspecified tachycardia Pelvic pain Irregular bleeding Irregular menstrual cycle Preop testing Unspecified pre-operative examination documented in this encounter [facility] Work Phone: Evaluation note* Diagnosis Pelvic pain Irregular bleeding Irregular menstrual cycle Preop testing Unspecified pre-operative examination Preop testing Unspecified pre-operative examination Tachycardia Unspecified tachycardia Preop testing Unspecified pre-operative examination Tachycardia Unspecified tachycardia Preop testing Unspecified pre-operative examination Tachycardia Unspecified tachycardia Pelvic pain Irregular bleeding Irregular menstrual cycle Preop testing Unspecified pre-operative examination documented in this encounter [facility] Work Phone: Evaluation note* Diagnosis Pelvic pain Irregular bleeding Irregular menstrual cycle Preop testing Unspecified pre-operative examination Preop testing Unspecified pre-operative examination Tachycardia Unspecified tachycardia Preop testing Unspecified pre-operative examination Tachycardia Unspecified tachycardia Preop testing Unspecified pre-operative examination Tachycardia Unspecified tachycardia Pelvic pain Irregular bleeding Irregular menstrual cycle Preop testing Unspecified pre-operative examination documented in this encounter [facility] Work Phone: [phone] note* Diagnosis Chronic midline low back pain without sciatica- Primary Frequent falls Tremor Abnormal involuntary movements [facility]* Diagnosis Chronic midline low back pain without sciatica- Primary Frequent falls Tremor Abnormal involuntary movements documented [facility] this encounter [facility]* Diagnosis Endometriosis- Primary Endometriosis, site unspecified documented in this encounter [facility] Work Phone: Evaluation note* Diagnosis Contusion of back, unspecified laterality, initial encounter- Primary Fall, initial encounter documented in this encounter [facility] Work Phone: [phone] note* Diagnosis Chest pain- Primary Unspecified chest pain Chest pain, unspecified type [facility] Chronic right shoulder pain- Primary Pain in joint, shoulder region [facility]* Diagnosis Encounter to establish care- Primary Reserved for inherently not codable concepts WITHOUT codable children [facility]* Diagnosis Psoriasis- Primary Other psoriasis Frequent falls Tremor Abnormal involuntary movements Impaired mobility Other ill-defined conditions [facility]* Diagnosis Anxiety Anxiety state, unspecified Chronic systolic (congestive) heart failure (CMS/HCC) Depression, major, single episode, severe (CMS/HCC) Seizure-like activity (CMS/HCC) Sedative, hypnotic or anxiolytic dependence with withdrawal, unspecified ([facility]) documented in this encounter [facility] Work Phone: Evaluation note* Diagnosis Morbid obesity with BMI of 40.0-44.9, adult (Multi)- Primary Endometriosis Endometriosis, site unspecified Thrombocytopenia (CMS-[facility]) Unspecified thrombocytopenia Chronic systolic (congestive) heart failure (Multi) documented in this encounter [facility] Work Phone: Evaluation note* Diagnosis Seborrheic dermatitis Unspecified seborrheic dermatitis [facility]* Diagnosis Acute appendicitis- Primary Acute appendicitis without mention of peritonitis Acute appendicitis, unspecified acute appendicitis type Thrombocytopenia (HCC) Unspecified thrombocytopenia Elevated serum creatinine Other nonspecific findings on examination of blood History of epilepsy Unspecified epilepsy without mention of intractable epilepsy Constipation, unspecified constipation type S/P laparoscopic appendectomy Other postprocedural status [facility]* Diagnosis S/P laparoscopic appendectomy- Primary Other postprocedural status [facility]* Diagnosis 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) [facility]* Diagnosis 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)- Primary Tremor Abnormal involuntary movements Frequent falls [facility]* Diagnosis Seborrheic dermatitis Unspecified seborrheic dermatitis documented [facility]* Diagnosis Well woman exam (no gynecological exam)- Primary Routine general medical examination at a health care facility Screening mammogram for breast cancer documented in this encounter [facility] Work Phone: Evaluation note* Diagnosis Encounter for screening mammogram for breast cancer documented in this encounter [facility] Work Phone: Evaluation note* Diagnosis COVID-19- Primary Cough in adult Chest congestion Other symptoms involving respiratory system and chest Otalgia of both ears Acute cystitis with hematuria documented in this encounter [facility] Work Phone: Evaluation note* Diagnosis Focal epilepsy with impairment of consciousness, intractable (HCC)- Primary Localization-related (focal) (partial) epilepsy and epileptic syndromes with simple partial seizures, with intractable epilepsy [facility] Diagnosis 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)- Primary Focal epilepsy with impairment of consciousness, intractable (HCC) Localization-related (focal) (partial) epilepsy and epileptic syndromes with simple partial seizures, with intractable epilepsy Tremor Abnormal involuntary movements Dizziness Dizziness and giddiness documented in this encounter [facility]* Diagnosis Postop check- Primary Follow-up examination, following unspecified surgery documented in this encounter [facility] Work Phone: Evaluation note* Diagnosis Focal epilepsy with impairment of consciousness, intractable (HCC)- Primary Localization-related (focal) (partial) epilepsy and epileptic syndromes with simple partial seizures, with intractable epilepsy 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) documented [facility] this [facility]* Diagnosis Seizure disorder (CMS/HCC) (HCC)- Primary Unspecified epilepsy without mention of intractable epilepsy Seizure disorder (CMS/HCC) (HCC) Unspecified epilepsy without mention of intractable epilepsy documented in this encounter [facility]vetEvaluation noteNo assessment information availableWMet[facility] Work Phone: History of Present illness Narrative* HERE FOR F/U AFTER D/ FORM [facility] AT [place] * HOSPITAL BED , HAS AN UNSTEADY GAIT, USES WC A LOT * FACE TO FACE FOR HOME CARE * PT FOR GAIT [facility] Work Phone: History of Present illness Narrative* HERE FOR MED REFILL * HAD ABNORMAL VAGINAL DISCHRAGE * HAD LOWER ABDOMINAL PAIN AND BACK PAIN ON THE WEEKEND WHICH RESOLVED, LASTED FOR SHORT PEROID OF TIME FEELS FINE NOW [facility] Work Phone: History of Present illness Narrative* F/U AFTER BW * HAS BEEN MORE ANXIOUS IN AM WANTS LORAZEPAM RAISED [facility] Work Phone: History of Present illness Narrative* F/U AFTER BW * HAS BEEN MORE ANXIOUS IN AM WANTS LORAZEPAM RAISED [facility] Work Phone: History of Present illness Narrative* f/u after labs * HAD 3 FALLS , LOST HER BALANCE AND FELL * ONE TIME WHEN IN BATHROOM HIT HER BACK AND GOT A SMALL BRUISE, NO SZ [facility] Work Phone: History of Present illness Narrative* f/u after labs * HAD 3 FALLS , LOST HER BALANCE AND FELL * ONE TIME WHEN IN BATHROOM HIT HER BACK AND GOT A SMALL BRUISE, NO SZ [facility] Work Phone: History of Present illness Narrative* MED REFILL * C/O TREMOR * HAS DIOMEDES. WITH NEURO NEXT MO [facility] Work Phone: History of Present illness Narrative* MED REFILL * C/O TREMOR * HAS DIOMEDES. WITH NEURO NEXT MO [facility] Work Phone: History of Present illness Narrative* PT C/O EPIGASTRIC AND RUQ PAIN * FOR 3 DAYS * SEVERITY: SEVERE * CHARACTERISTIC: ACUTE * EXACERBATION FACTOR: MOVEMENTS * RELIEVING FACTOR: REST * ASSOCIATED SYMPTOMS: LBP, NAUSEA AND VOMITING * PRIOR TX:BIOFREEZE, TYLENOL [facility] Work Phone: History of Present illness Narrative* PT C/O EPIGASTRIC AND RUQ PAIN * FOR 3 DAYS * SEVERITY: SEVERE * CHARACTERISTIC: ACUTE * EXACERBATION FACTOR: MOVEMENTS * RELIEVING FACTOR: REST * ASSOCIATED SYMPTOMS: LBP, NAUSEA AND VOMITING * PRIOR TX:BIOFREEZE, TYLENOL [facility] Work Phone: History of Present illness Narrative* HERE FOR F/U STILL HAS RUQ PAIN * HAS BEEN MORE ANXIOUS [facility] Work Phone: History of Present illness Narrative* HERE FOR F/U , NO LABS DONE * RIGHT KNEE PAIN * C/O OFF And on nausea and vomiting [facility] Work Phone: History of Present illness Narrative* HERE FOR F/U , NO LABS DONE * RIGHT KNEE PAIN * C/O OFF And on nausea and vomiting [facility] Work Phone: History of Present illness NarrativeHERE FOR MED REFILL[facility] Work Phone: History of Present illness Narrative* HERE FOR MED REFILL * C/O RIGHT KNEE PAIN * WHITE SPOTS ON THE RIGHT LEG * STILL HAS LOTS OF SHAKING WOULD LIKE INCREASE IN LORAZEM WHICH HELPS A LOT [facility] Work Phone: History of Present illness Narrative* HERE FOR MED REFILL * C/O B/L EAR ACHE * C/O RASH ON THE RIGHT ARM PIT WITH SOME ITCH [facility] Work Phone: History of Present illness NarrativeAgree [...] this is when most of the falls occur.[facility] [address] Work Phone: History of Present illness Narrative* HERE FOR MED REFILL * C/O BACK PAIN * C/O B/L KNEE PAIN, HER VOLTAREN GEL WAS EFFECTIVE BUT STOPPED [facility] Work Phone: History of Present illness Narrative* HERE FOR MED REFILL * WANTS TO SEE CARDIO FOR OFF AND ON PALPITATIONS * WANTS TO SEE SURVEYOR MINE FOR OFF AND [place] SOB * PRIOR TX: COUGH SYRP, TYLENOL [facility] Work Phone: History of Present illness [...] changing positions. BP not currently checkedat the [facility] and patient hypotensive in the office. * In further conversation, patient reports a history of acute renal failure approximately 22 years ago and requesting to see a surveyor helper rod to establish care. She also is not happy with her current Neurologist in [place] and would like a referral placed to Dr. Valentina Chopra (previous Neurologist) to better manage her seizure medications. * Patient denies any chest pain/pressure/discomfort or SOB. She does report occasional swelling in her lower extremities and she reports elevating her feet when she is back in her apartment. [id number] [address] Work Phone: History of Present [...] changing positions. BP not currently checkedat the [facility] and patient hypotensive in the office. * In further conversation, patient reports a history of acute renal failure approximately 22 years ago and requesting to see a surveyor helper rod to establish care. She also is not happy with her current Neurologist in [place] and would like a referral placed to Dr. Valentina Chopra (previous Neurologist) to better manage her seizure medications. * Patient denies any chest pain/pressure/discomfort or SOB. She does report occasional swelling in her lower extremities and she reports elevating her feet when she is back in her apartment. [facility] Work Phone: History of Present illness Narrative* [...] changing positions. BP not currently checkedat the [facility] and patient hypotensive in the office. * In further conversation, patient reports a history of acute renal failure approximately 22 years ago and requesting to see a surveyor helper rod to establish care. She also is not happy with her current Neurologist in [place] and would like a referral placed to Dr. Valentina Chopra (previous Neurologist) to better manage her seizure medications. * Patient denies any chest pain/pressure/discomfort or SOB. She does report occasional swelling in her lower extremities and she reports elevating her feet when she is back in her apartment. [facility] Work Phone: History of Present illness Narrative* [...] you for this referral and please call [phone] with any questions or concerns. * Clinical Presentation: Stable and/or uncomplicated characteristics. * Level of Complexity: low * Problem List: activity limitations, ADLs/IADLs/self care skills, decreased knowledge of HEP, flexibility, gait/locomotion, pain, participation restrictions, range of motion/joint mobility and strength. [facility] Work Phone: History of Present illness [...] changing positions. BP not currently checkedat the [facility] and patient hypotensive in the office. * In further conversation, patient reports a history of acute renal failure approximately 22 years ago and requesting to see a surveyor helper rod to establish care. She also is not happy with her current Neurologist in [place] and would like a referral placed to Dr. Valentina Chopra (previous Neurologist) to better manage her seizure medications. * Patient denies any chest pain/pressure/discomfort or SOB. She does report occasional swelling in her lower extremities and she reports elevating her feet when she is back in her apartment. [facility] Work Phone: History of Present illness NarrativePatient [...] decrease fall risk and improve balance. [facility] Work Phone: History of Present illness [...] ambulation, to decrease fall risk and improve balance.[facility] Work Phone: History of Present illness [...] increase strength, improve balance/ambulation to decrease fall risk.[facility] Work Phone: History of Present illness [...] to decreasefall risk and improve ambulation. [facility] Work Phone: History of Present illness Narrative* Agree with CC as noted, Elle is a pleasant 47-year-old female arrived in wheelchair from [facility] for follow-up of right knee pain. Aquatherapy helped with sx control, states she is no longer being scheduled. [facility] arrange transportation. States PT recommended OT, not clear for what- thinks for upper body strengthening. * Takes prn Tylenol with no sx improvement. States no IcyHot provided at facility, no BioFreeze beingused with short-term symptom relief. [facility] Work Phone: [...] you for this referral and please call [phone] with any questions or concerns. [facility] Work Phone: History of Present illness NarrativePatient tolerated treatment without increased pain. Patient has weak TrA and attempts to keep intact. Patient needing one noodle to ambulate across pool with HEAD CHARGER. Patient needing one UE support with SBA to perform LE ther-ex. Patient needing B UE support with 100%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 is making notes of all of these symptoms so she can let the neurologist know at her apt. The following portions of the patient's history were reviewed and updated as appropriate: allergies, current medications, past family history, past medical history, past social history, past surgicalhistory and problem list. Past Medical History: Diagnosis Date Acquired thrombocytopenia ([facility]) [facility]/Lopez Shaikh Acute kidney injury ([facility]) 05/22/2018 [facility]/Jonatan Chiu DO Anxiety Calcaneal spur of right foot 2016 Documented on x-ray Chronic kidney disease, stage III (moderate) ([facility]) 2000 Congestive heart failure (CHF) ([facility]) [facility]/Lopez Shaikh Depression Epilepsy ([facility]) 08/06/2011 [facility]- Dr. Chopra Epilepsy ([facility]) 1993 Facet degeneration of lumbar region 10/14/2018 [facility]/Jono ALEXIS, Moi Mild facet degenerative changes seen in the lower lumbar spine Fatty liver [facility]/Joe Mendieta MD Mild fibrofatty changes of the liver Fluid collection (edema) in the arms, legs, hands and feet 03/09/2018 Dr valentina Chopra Gastritis determined by endoscopy 12/29/2016 Dr. GonzalezNsmhan-Gdlvjpbuo-lwxcjpnivjprp nonbleeding with biopsy Hepatic steatosis [facility]/Heidy Jara MD Mild Hiatal hernia 12/29/[address] Lobo grade 4 Hypercholesterolemia [facility]/Jonatan Chiu DO Hypertension 2000 2000-present Insomnia Neuro [facility]/Lopez Shaikh Kidney stone [facility]/Lopez Shaikh Lung nodule 12/15/2017 0.5 cm pleural based nodule in right middle lobe. Mild linear atelectasis Mitral valve prolapse [facility]/Lopez Shaikh Rectus diastasis [facility]/Heidy Jara MD Present with small wide necked perumbical ventral containing fat. Second degree burn of foot 04/23/2018 Right Foot - [facility] Sleep apnea Stroke (HCC) 2001 mild Tremor Past Surgical History: Procedure Laterality Date Conner pH capsule placement 02/01/2017 Dr. Lobo BREAST REDUCTION 2000 bilateral [facility]-nonperforating gastritis ESOPHAGEAL MANOMETRY [...] ED/admit notes faxed To Neuro at # [phone] Pre-auth [facility] approved Valdemar prior auth. received until 0900 [...] Patient Via: Telephone Patient was Discharged From [facility] Discharge Diagnosis: HTN, anxiety, seizures Admission [...] 03/15/19 to ED stating seizures. Transferred to [place] observation. Describes turned to change her clothes [...] Seek Emergent Care with EMS/911/ED, When to Order Fulfillment Specialist and As Directed by [employer]ECUT[employer]/Surgeon/Specialist Additional Information Discussed: Yes Providers/Clinics: Home Health Care Arrangements Initiated: No Follow up with Valentina Chopra MD Specialty: Neurology [address] [place] [address] Future Appointments Date Time Provider Department Center [...] - 03/31/2019 2:44 PM EDT SS from [facility] phoned, beginning evaluation for assisted living. Provided with pt. History and struggles including medication management and follow up. Will reach out for update closer to final plan. documented in this encounter* Gauri Saavedra MSW LSW - 12/03/2020 2:19 PM EST DISCHARGE PLAN PROGRESS NOTE Date: 12/03/2020 Time: 2:23 PM Received message from [facility] and patient will have to go by [facility]. Transportation arranged for 15:00 through [employer]. Message sent to JOHN Garcia. Updated Marifer with [employer] [facility] [place]. Patient updated. Patient Name: Reema Shah Date of : 1975 Sex: Female [facility] Disposition D/C Disposition: Alf Facility Agency/Destination: [facility] PAS/RR: PAS, LOC Transportation Type: W/C [employer] Transportation Company/Agency Name: [employer](15:00 ([phone])) Options Reviewed: Explained services/benefits Reason for Choice: Patient/Family preference * Gauri Saavedra MSW LSW - 12/03/2020 1:15 PM EST DISCHARGE PLAN PROGRESS NOTE Date: 12/03/2020 Time: 1:16 PM Received level of care results. Updated Marifer with [facility]. Results emailed to Marifer. Updated Dr. Cutler and plan is for discharge. Message sent to JOHN Garcia with an update. Message sent to [facility] for transport. Awaiting time. Patient Name: Reema Shah Date of : 1975 Sex: Female [facility] Disposition D/C Disposition: Alf Facility Agency/Destination: [facility] Yisel Reviewed: Explained services/benefits Reason for Choice: Patient/Family preference Anticipated Discharge Plan Anticipated Facility Type: long-term facility * Gauri Saavedra MSW LSW - 12/03/2020 1:02 PM EST DISCHARGE PLAN PROGRESS NOTE Date: 12/03/2020 Time: 1:02 PM Received message from Vanda with the [facility] on A[facility] requesting additional documents be sent for level of care. Document emailed per current protocol. Patient Name: Reema Shah Date of : 1975 Sex: Female [facility] Disposition D/C Disposition: Alf Facility Agency/Destination: [facility] Options Reviewed: Explained services/benefits Reason for [...] Walker Prior Level of Function Level of Energy: Needs assistance with ADLs, Needs assistance with [...] Shah Date of : 1975 Sex: Female [facility] Disposition D/C Disposition: Alf Facility Agency/Destination: [facility] Options Reviewed: Explained services/benefits Reason for Choice: Patient/Family preference Anticipated Discharge Plan Anticipated Facility Type: long-term facility * Omayra, Scott Del Rio MD - 12/02/2020 4:51 PM EST [facility] Medicine Inpatient Follow-up 12/02/2020 Scott Cutler MD [facility] Patient: Reema Shah Date of : 1975 (45 y.o.) PCP: Nedra Brewer CNP ASSESSMENT/PLAN: Reema Shah 45 y.o. female presented with Principal Problem: Fall Active Problems: Essential hypertension Acute kidney injury superimposed on CKD ([facility]) GERD (gastroesophageal reflux disease) Seizures ([facility]) Weakness Hypokalemia Thrombocytopenia ([facility]) Closed undisplaced fracture of nasal bone, initial [...] History: Diagnosis Date Acquired thrombocytopenia ([facility]) [facility] Acute kidney injury ([facility]) 05/22/2018 [facility]/Jonatan Chiu DO Anxiety Arm abrasion 06/19/2019 INFO GAINED FROM: /[facility] ED VISIT NOTE --- MENGAC SILVA MD Calcaneal spur of right foot 2016 Documented on x-ray CKD (chronic kidney disease) Congestive heart failure (CHF) ([facility]) [facility]/Lopez Shaikh Contusion, hip 06/19/2019 INFO GAINED FROM: /[facility] ED VISIT NOTE --- AC GAO MD Depression Epilepsy ([facility]) 08/06/2011 [facility]- Dr. Chopra Epilepsy ([facility]) 1993 Facet degeneration of lumbar region 10/14/2018 [facility]/Jono ALEXIS, Moi Mild facet degenerative changes seen in the lower lumbar spine Fatty liver [facility]/Joe Mendieta MD Mild fibrofatty changes of the liver Fluid collection (edema) in the arms, legs, hands and feet 03/09/2018 Dr valentina Chopra Gastritis determined by endoscopy 12/29/2016 Dr. GonzalezCjljup-Uetujrfhi-ostmpjfsroavd nonbleeding with biopsy 1 para 1 Hepatic steatosis [facility]/Heidy Jara MD Mild Hiatal hernia 12/29/[address] Lobo grade 4 Hypercholesterolemia [facility]/Jonatan Chiu DO Hypertension 2000 2000-present Insomnia Neuro [facility]/Lopez Shaikh Kidney stone [facility]Lopez Shaikh Laceration of head 06/19/2019 INFO GAINED FROM: /[facility] ED VISIT NOTE --- AC GAO MD Lung nodule 12/15/2017 0.5 cm pleural based nodule in right middle lobe. Mild linear atelectasis Mitral valve prolapse [facility]Lopez Shaikh Motor seizure ([facility]) 03/16/2019 INFO GAINED FROM: /[facility] ED VISIT --- GILMAN DO,CAREN Rectus diastasis [facility]/Heidy Jara MD Present with small wide necked perumbical ventral containing fat. Second degree burn of foot 04/23/2018 Right Foot - [facility] Sleep apnea Stroke ([facility]) 2000 mild Tremor SUBJECTIVE: No new complain [...] History: Diagnosis Date Acquired thrombocytopenia ([facility]) [facility]/Lopez Shaikh Acute kidney injury ([facility]) 05/22/2018 [facility]/Jonatan Chiu DO Anxiety Arm abrasion 06/19/2019 INFO GAINED FROM: /[facility] ED VISIT NOTE --- AC GAO MD Calcaneal spur of right foot 2017 Documented on x-ray CKD (chronic kidney disease) Congestive heart failure (CHF) ([facility]) [facility]/Lopez Shaikh Contusion, hip 06/19/2019 INFO GAINED FROM: [facility] ED VISIT NOTE --- AC GAO MD Depression Epilepsy ([facility]) 08/06/2011 [facility]- [facility] Chopra Epilepsy ([facility]) 1993 Facet degeneration of lumbar region 10/14/2018 [facility]/Jono ALEXIS, Moi Mild facet degenerative changes seen in the lower lumbar spine Fatty liver [facility]/Joe Mendieta MD Mild fibrofatty changes of the liver Fluid collection (edema) in the arms, legs, hands and feet 03/09/2018 Dr valentina Chopra Gastritis determined by endoscopy 12/29/2016 Dr. GonzalezPuejkj-Andblhjxp-kunblrrjiselo nonbleeding with biopsy 1 para 1 Hepatic steatosis [facility]/Heidy Jara MD Mild Hiatal hernia 12/29/[address] Lobo grade 4 Hypercholesterolemia [facility]/Jonatan Chiu DO Hypertension 2000 2000-present Insomnia Neuro [facility]/Lopez Shaikh Kidney stone Neuro [facility]/Lopez Shaikh Laceration of head 06/19/2019 INFO GAINED FROM: /[facility] ED VISIT NOTE --- MENG ALEXIS,AC A Lung nodule 12/15/2017 0.5 cm pleural based nodule in right middle lobe. Mild linear atelectasis Mitral valve prolapse [facility]/Lopez Shaikh Motor seizure (HCC) 03/16/2019 INFO GAINED FROM: /[facility] ED VISIT --- BLAKE STEELE,CAREN Rectus diastasis [facility]/Heidy Jara MD Present with small wide necked perumbical ventral containing fat. Second degree burn of foot 04/23/2018 Right Foot - [facility] Sleep apnea Stroke (HCC) 2000 mild [...] Estimated Energy Needs Total Energy Estimated Needs: 9371-2194 Method for Estimating Needs: 30 kcal/kg Total Protein Estimated Needs: 90 Method for Estimating Needs: 1.2 gm/kg SAUD Carranza, MALICKN, LD Cell Office * Gauri Saavedra MSW LSW - 12/02/2020 1:03 PM EST DISCHARGE PLAN PROGRESS NOTE Date: 12/02/2020 Time: 1:03 PM Received in-basket message from Marifer with [facility] and the patient has been accepted. Updated the patient. Preadmission screening completed and submitted. Level of care completed and submittedto the [facility] Agency on Aging. Awaiting results. Patient Name: Reema Shah Date of : 1975 Sex: Female [facility] Disposition D/C Disposition: Alf Facility Agency/Destination: [facility] Options Reviewed: Explained services/benefits Reason for Choice: Patient/Family preference * Becki Ferrer LISW - 12/01/2020 3:24 PM EST Spoke with patient (Pt) at request of Dr. Olivares. Family member (Per Dr. Olivares this is Pt's cousin) that Pt is currently residing with is present during discussion. Pt was discharged from a facility in [place] to live with her cousin. Per cousin [...] requests this worker try anywhere else in [place] that's not assisted living. Contacted [facility] who state they will not be able to consider Pt until tomorrow. Also contacted [facility] and spoke with Marifer Hampton ([phone]) who reports they do have bed availability. Marifer states they will have to have a level of care completed due to Pt's insurance and this cannot be done until the [facility] on Aging opens up tomorrow. Marifer states that once this is completed the Pt's chart can be linked to them and she will review Ptfor possible admission. Did update Dr. Olivares who states that he will see if he can have Pt admittedto observation unit. Pt's MIX HOUSE TENDER, Charlee Richey, contacted this worker and stated that she was concerned about the Pt and istrying to help with placement. Mayte states that she strongly advocates that Pt be admitted somewhere. Mayte reports that if anything is needed to contact her at her office [phone] and connect with option 1 to leave a message. Mayte also provided her personal cell phone, [phone], in the event that she is needed [...] 1:11 PM EDT [facility] Nedra Brewer CNP Spoke to Patient Via: Telephone Patient was Discharged From [facility] Discharge Diagnosis: CKD, hyperammonemia, polydipsia, resting tremors, [...] Future Questions or Concerns about Medications: Yes, Mobile Marketing Specialist Functional Status: Patient Status: Slow Speech and [...] Additional Information Discussed: Yes, patient states her Economic Adviser, [facility] appt[facility] for patient with Dr Chopra. Patient reports her Economic Adviser attends all herphysician appointments. Providers/Clinics: Home Health Care Arrangements Initiated: No Future Appointments Date Time Provider Department Center 03/01/2019 8:30 AM CHAYA Oquenod PCP [facility] Requested To: ? Bring All Medication Bottles To Appointment ? documented in this encounter Reason for Referral Status Reason Specialty Diagnoses / Procedures Referred By Contact Referred To Contact Authorized Cardiology Diagnoses Essential hypertension Chronic kidney disease, stage III (moderate) (HCC) Chest pain at rest Nedra Brewer CNP [address] [place] [address] [facility] [facility] [place] [address] [place] [address] Status Reason Specialty Diagnoses / Procedures Referred By Contact Referred To Contact Pending Review Cardiology Diagnoses Chest pain at rest Procedures Echocardiogram complete Zeke Onofre MD [address] [place] [address] Status Reason Specialty Diagnoses / Procedures Referred By Contact Referred To Contact Pending Review Radiology Diagnoses Chest pain at rest Procedures NM Myocardial Perfusion Multiple SPECT Zeke Onofre MD [address] [place] [address] Status Reason Specialty Diagnoses / Procedures Referred By Contact Referred To Contact Closed Cardiology Diagnoses Essential hypertension Chronic kidney disease, stage III (moderate) (HCC) Chest pain at rest Nedra Brewer CNP [address] [place] [address] Zeke Onofre MD [address] [place] [address] Status Reason Specialty Diagnoses / Procedures Referred [...] Hirsutism Omayra, Scott Del Rio MD [address] [place] [address] Specialty Diagnoses / Procedures Referred By Contac t Referred To Contact Otolaryngology Diagnoses Fracture of bone of nasal sinus (HCC) Sammie Iglesias MD [address] [place] [address] Julian Galeana MD [address] [place] [address] Referral ID Status Reason Start Date Expiration Date V isits Requested Visits Authorized [id number] Authorized 07/18/2021 07/18/2022 1 1 Specialty Diagnoses / Procedures Referred By Contac t Referred To Contact Neurology Diagnoses Migraine without status migrainosus, not intractable, unspecified migraine type Jeanie Ayala MD [address] [place] [address] [facility] Referral ID Status Reason Start Date Expiration Date V isits Requested Visits Authorized [id number] Authorized 10/28/2022 10/28/2023 1 1 Specialty Diagnoses / Procedures Referred By Contac t Referred To Contact Diagnoses Menorrhagia with irregular cycle Matthew Pérez MD [address] [facility] Medical Office, [place] [id number] Referral ID Status Reason Start Date Expiration Date V isits Requested Visits Authorized [id number] Pending Review 08/16/2023 08/15/2024 1 1 Specialty Diagnoses / Procedures Referred By Contac t Referred To Contact Radiology Diagnoses Preop testing Procedures XR chest 2 views Matthew Pérez MD [address] [facility] Medical Office, [address] [address] Referral ID Status Reason Start Date Expiration Date Visits Requested Visits Authorized [id number] Authorized Perform Procedure 08/15/2024 1 1 Specialty Diagnoses / Procedures Referred By Contac t Referred To Contact Diagnoses Preop testing Procedures ECG 12 Lead Matthew Pérez MD [address] [facility] Medical Office, [address] [address] Referral ID Status Reason Start Date Expiration Date V isits Requested Visits Authorized [id number] Pending Review 08/16/2023 08/15/2024 1 1 Specialty Diagnoses / Procedures Referred By Contac t Referred To Contact Diagnoses Abnormal EKG Chest pain, unspecified type Procedures Nuclear Stress Test Jeanie Ayala MD [address] [facility] [place] [address] Referral ID Status Reason Start Date Expiration Date V isits Requested Visits Authorized [id number] Pending Review 09/08/2023 09/07/2024 5 5 Specialty Diagnoses / Procedures Referred By Contac t Referred To Contact Cardiology Diagnoses Preop testing Tachycardia Procedures Holter Or Event Belt And Link Shop Supervisor Everett Walton MD [address] [place], [facility] [address] [place] [address] Referral ID Status Reason Start Date Expiration Date V isits Requested Visits Authorized [id number] Pending Review 09/21/2023 09/20/2024 1 1 Specialty Diagnoses / Procedures Referred By Contac t Referred To Contact Cardiology Diagnoses Preop testing Tachycardia Procedures Transthoracic Echo (TTE) Complete SC ECHO TRANSTHORC R-T 2D W/WO M-MODE REC F-UP/LMTD SC DOP ECHOCARD COLOR FLOW VELOCITY MAPPING SC DOP ECHOCARD PULSE WAVE W/SPECTRAL F-UP/LMTD STD Everett Walton MD [address] [place], [address] [address] Referral ID Status Reason Start Date Expiration Date Visits Requested Visits Authorized [id number] Pending Review Perform Procedure 09/21/2023 09/20/2024 1 1 Referral ID Status Reason Start Date Expiration Date V isits Requested Visits Authorized [id number] Authorized 09/21/2023 09/20/2024 1 1 Specialty Diagnoses / Procedures Referred By Contac t Referred To Contact Radiology Diagnoses Preop testing Tachycardia Procedures Nuclear Stress Test CHG MYOCARDIAL SPECT MULTIPLE STUDIES CHG MYOCARDIAL SPECT SINGLE STUDY AT REST OR STRESS Everett Walton MD [address] [place], [facility] [address] [place] [address] Referral ID Status Reason Start Date Expiration Date V isits Requested Visits Authorized [id number] Authorized 09/21/2023 09/20/2024 5 5 Specialty Diagnoses / Procedures Referred By Contac t Referred To Contact Diagnoses Preop testing Tachycardia Procedures Cardiology Interpretation Of Nuclear Stress - See Other Report For Nuclear Portion Everett Walton MD [address] [place] [address] Dr Francheska Stuart, [address] [address] Referral ID Status Reason Start Date Expiration Date V isits Requested Visits Authorized [id number] Authorized 10/05/2023 10/04/2024 1 1 Specialty Diagnoses / Procedures Referred By Contac t Referred To Contact Occupational Therapy Diagnoses Frequent falls Procedures SC OFFICE/OUTPATIENT NEW HIGH MDM 60 MINUTES Mejia Cullen MD [address] [place] [address] Referral ID Status Reason Start Date Expiration Date Visits Requested Visits Authorized [id number] Pending Review Eval and Treat 10/25/2023 10/25/2024 99 99 Specialty Diagnoses / Procedures Referred By Contac t Referred To Contact Physical Therapy Diagnoses Frequent falls Procedures SC OFFICE/OUTPATIENT NEW HIGH MDM 60 MINUTES Mejia Cullen MD [address] [place] [address] Referral ID Status Reason Start Date Expiration Date Visits Requested Visits Authorized [id number] Pending Review Eval and Treat 10/25/2023 04/22/2024 99 99 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) Procedures EEG FIVE PIECE EXPANSION MAKER HAND MONITORING 2 - 3 DAY Sohail Hernandez MD PhD [address] [address] Referral ID Status Reason Start Date Expiration Date V isits Requested Visits Authorized [id number] Pending Review 07/07/2024 07/02/2025 1 1 Specialty Diagnoses / Procedures Referred By Contac t Referred To Contact Radiology Diagnoses Encounter for screening mammogram for breast cancer Procedures BI mammo bilateral screening tomosynthesis Jeanie Ayala MD [address] [place] [address] Referral ID Status Reason Start Date Expiration Date Visits Requested Visits Authorized [id number] Authorized Perform Procedure 12/13/2023 12/12/2024 1 1 [...] Log into your personal health record on [email or web address] and enter M769 in the Education box to learn more about Seizure: Care Instructions. Current as of: March 20, 2018 Content Version: 12.0 2788-1363 [employer]. Care instructions adapted under license by your healthcare professional. If you have questions about a medical condition or this instruction, always ask your healthcare professional. [employer] disclaims any warranty or liability for your use of this information. documented in this encounter Hospital Course * Scott Cutler MD - 12/03/2020 2:12 PM EST HOSPITALIST DISCHARGE SUMMARY Patient: Reema Shah Account: [id number] Admitted: 12/01/2020 Discharge Date/Time: 12/03/2020 Clinical Summary FINAL DIAGNOSIS: Principal Problem: Fall Active Problems: Essential hypertension Acute kidney injury superimposed on CKD ([facility]) GERD (gastroesophageal reflux disease) Seizures ([facility]) Weakness Hypokalemia Thrombocytopenia ([facility]) Closed undisplaced fracture of nasal bone, initial encounter Hypothyroidism Past Medical History: Diagnosis Date Acquired thrombocytopenia ([facility]) [facility]/Lopez Shaikh Acute kidney injury ([facility]) 05/22/2018 [facility]/Jonatan Chiu DO Anxiety Arm abrasion 06/19/2019 INFO GAINED FROM: /[facility] ED VISIT NOTE --- AC GAO MD Calcaneal spur of right foot 2017 Documented on x-ray CKD (chronic kidney disease) Congestive heart failure (CHF) ([facility]) [facility]/Lopez Sha[facility] Contusion, hip 06/19/2019 INFO GAINED FROM: /[facility] ED VISIT NOTE --- AC GAO MD Depression Epilepsy ([facility]) 08/06/2011 [facility]- [facility] Chopra Epilepsy ([facility]) 1993 Facet degeneration of lumbar region 10/14/2018 [facility]/Jono ALEXIS, Moi Mild facet degenerative changes seen in the lower lumbar spine Fatty liver [facility]/Joe Mendieta MD Mild fibrofatty changes of the liver Fluid collection (edema) in the arms, legs, hands and feet 03/09/2018 Dr valentina Chopra Gastritis determined by endoscopy 12/29/2016 Dr. GonzalezCgtaam-Gdonyzlwa-vptsenfmfugtr nonbleeding with biopsy 1 para 1 Hepatic steatosis [facility]/Heidy Jara MD Mild Hiatal hernia 12/29/[address] Lobo grade 4 Hypercholesterolemia [facility]/Jonatan Chiu DO Hypertension 2000 2000-present Insomnia Neuro [facility]/Lopez Shaikh Kidney stone [facility]/Lopez Shaikh Laceration of head 06/19/2019 INFO GAINED FROM: /[facility] ED VISIT NOTE --- AC GAO MD Lung nodule 12/15/2017 0.5 cm pleural based nodule in right middle lobe. Mild linear atelectasis Mitral valve prolapse [facility]/Lopez Shaikh Motor seizure ([facility]) 03/16/2019 INFO GAINED FROM: /[facility] ED VISIT --- GILMAN DO,CAREN Rectus diastasis [facility]/Heidy Jara MD Present with small wide necked perumbical ventral containing fat. Second degree burn of foot 04/23/2018 Right Foot - [facility] Sleep apnea Stroke ([facility]) 2000 mild Tremor REASON FOR HOSPITALIZATION AND ADMITTING DIAGNOSIS: Seizures Seizures ([facility]) [R56.9] Weakness [R53.1] Medication refill [Z76.0] Closed [...] Your Medications These medications were sent to [facility]/pharmacy #[id number] [place] [address] doxycycline hyclate 100 MG tablet You can [...] Physician(s) Family: Nedra Brewer CNP, , Address: [address] [place] [address] / [place] [phone] Follow Up: [facility] Address: [facility] [place] [phone] Servicing Counties: [place] [phone] Nedra Brewer, BRANCH RETAIL EXECUTIVE [address] [facility] [id number] Follow up in 1 week(s) Aleksey Bhardwaj MD [address] [address] Follow up in 1 month(s) Patient instructions, [...] having some vaginal pain. LMP IUDD/C FROM [facility]-PT IS NOW AT [facility]; FACE-2-FACE FOR [facility]. SHE IS IN NEED OF A RX FOR HOSPITAL BED AND THEY WANT ORDERS FOR PHYSICAL THERAPYED F/U X 3 IN LAST 5 DAYS; WITHDRAW FROM RUNNING OUT OF ATIVAN--NEURO WON'T RX ANYMORE AND SHE CAN'T GET INTO SCH UNTIL 06/05/21. C/O FEELING SHAKY AND HAS HAD MULTIPLE FALLS-L KNEE PAIN AND HIT HERHEAD A COUPLE OF TIMESPT HERE FOR FU [facility] PT CO SHARP PAIN IN ABDOMEN [...] WHITE SPOTS SHE WOULD LIKE LOOKED AT.* MIX HOUSE TENDER BILAT KNEE PAIN * PT DOES NOT WALK MUCH DUE TO SEIZURES * REFERRAL: DR FARIA * PAIN 8/10 * GOING ON FOR MONTHS * MIX HOUSE TENDER BILAT KNEE PAIN * PT DOES NOT [...] SHE NO LONGER IS RECEIVE THERAPY SERVICES. MIX HOUSE TENDER- REFERRED BY RAYNE LIN FOR CKD* 1 [...] and allow cool down until at least detention back to the pre exercise hear rate. [...] and allow cool down until at least detention back to the pre exercise hear rate. [...] to consider following up with the general labor delivery specialist.in this encounter Associated Problem(s): Chest pain [...] your blood pressure was elevated at the odd jobs day worker's office today because you had not taking your Cardura as the odd jobs day worker thought. Your blood pressure has decreased since [...] include nonsteroidals. The nonsteroidal class includes the bwnq-wsh-trlbpth medications of Motrin, Advil, Aleve, ibuprofen, Naprosyn as well as all the prescription nonsteroidals. Typically we follow individuals with chronic kidney disease a minimum of 2-3 times a year. As the kidney disease progresses we monitor closer. Typically start with a minimum of twice a year lab work and increase to every 3 months if indicated. Referral to a kidney specialist or surveyor helper rod is obtained with sudden declining kidney function, [...] out of bed since arriving at [facility]. She lives with her cousin. She [...] toxicity. She follows with Dr. Gillette from [place]. She was also using Keppra 750 mg [...] to 1000 mg twice a day. 3. [place] seizure precautions. 4. Monitor frequency alcohol seizures. [...] Portions of this chart was created using GLO voice recognition software. Occasional wrong-word or sound-like [...] seizure coming. This nurse sent CD from [place] with X-Ray information with Zeke from CT per instructions from Nissa Richards NP to be scanned into patient's record. Patient's medications prior to admission are present in the med room in a cooler and need to be reviewed with this nurse and patient. There are reportedly (per patient) medications therein that she is allergic to. Per night club manager, admission is not complete Patient is awake and alert, sitting in bed and able to express her needs. She reports that the tremors she is having at bedside report time are her baseline. No seizure activity reported. She also reports that she will be going to [facility] in [place] soon. documented in this encounter PHYSICAL THERAPY VISIT VARIANCE NOTE Patient reports that she is being transferred back to [facility] at 3pm. Nursing confirmed. PT orders discontinued [...] section and content) DATE CREATED AUTHOR 04/12/2018 [facility] DATE CREATED AUTHOR AUTHOR'S ORGANIZ ATION 04/12/2018 [facility] Center DATE CREATED AUTHOR AUTHOR'S ORGANIZ ATION 04/22/2018 [facility] DATE CREATED AUTHOR AUTHOR'S ORGANIZ ATION 05/15/2018 [facility] oundation (OR) DATE CREATED AUTHOR AUTHOR'S ORGANIZ ATION 12/06/2018 [facility] DATE CREATED AUTHOR AUTHOR'S ORGANIZ ATION 07/20/2019 [facility] DATE CREATED AUTHOR AUTHOR'S ORGANIZ ATION 01/18/2023 [facility] DATE CREATED AUTHOR AUTHOR'S ORGANIZ ATION 06/16/2023 [facility] DATE CREATED AUTHOR AUTHOR'S ORGANIZ ATION 07/23/2023 [facility] DATE CREATED AUTHOR AUTHOR'S ORGANIZ ATION 09/03/2023 [facility] DATE CREATED AUTHOR AUTHOR'S ORGANIZ ATION 09/06/2023 [facility] DATE CREATED AUTHOR AUTHOR'S ORGANIZ ATION 06/17/[address] [facility] latory DATE CREATED AUTHOR AUTHOR'S ORGANIZ ATION 06/22/2024 [facility] DATE CREATED AUTHOR AUTHOR'S ORGANIZ ATION 07/03/2024 [facility] DATE CREATED AUTHOR AUTHOR'S ORGANIZ ATION 07/27/2024 [facility] DATE CREATED AUTHOR AUTHOR'S ORGANIZ ATION 02/20/2025 [facility] DATE CREATED AUTHOR AUTHOR'S ORGANIZ ATION 03/18/2025 [facility] DATE CREATED AUTHOR [...] referred to office b y PCP, s/p [facility] ED x2 for abdominal pain, L radiating shoulder pain Status Reason Specialty Diagnoses / Procedures Referred By Contact Referred To Contact Closed Cardiology Diagnoses Essential hypertension Chronic kidney disease, stage III (moderate) (HCC) Chest pain at rest Spring, Nedra Diana, BRANCH RETAIL EXECUTIVE [address] [place] [address] Zeke Onofre MD [address] [place] [address] Reason Comments Hypertension Sore Throat X 3 days Status Reason Specialty Diagnoses / Procedures Referred By Contact Referred To Contact Pending Review Radiology Diagnoses Chest pain at rest Procedures NM Myocardial Perfusion Study Single - Stress Only NM Myocardial Perfusion Multiple SPECT Zeke Onofre MD [address] [place] [address] Reason Comments Transition Of Care Pt reports [...] 12/20/18-confirmed rs appt & instructions w/ Sally wait staff at [facility], as well as spoke to pt re change of test due to ins auth/JF Procedures NM MYOCARDIAL PERFUSION MULTI SPECT NM STRESS TEST Zeke Onofre MD [address] [place] [address] [place] [address] Reason Comments Seizures Status Reason Specialty Diagnoses / Procedures Referre d By Contact Referred To Contact Diagnoses Seizures (HCC) Weakness Medication refill Closed fracture of nasal bone, initial encounter Reason Comments ED 12/01/20 New Patient/Closed N maye Bone Fx Reason Comments Transition Of Care Reason Comments Transition Of Care follow up d/c 9 [facility] ED/OBS Tax Commissioner Visit ED visit 9 Tremors anxiety induced Reason Comments Medication Refill Reason Comments Follow-up FU ER FOR HIGH BLOOD PRESSURE Reason Comments Follow-up Med refill today Reason Comments Follow-up 1 mo fu pt co notici ng blood when she wipes and trouble urinating Reason Comments Fall Patient reports mech anical fall at home ([facility]) no injury Reason Comments Follow-up GENERAL CHECK [...] views Matthew Pérez MD [address] [facility] Medical [facility], [place] [id number] Referral ID Status Reason Start Date Expiration Date Visits Requested Visits Authorized [id number] Authorized Perform Procedure 08/15/2024 1 1 Specialty Diagnoses / Procedures Referred By Contac t Referred To Contact Diagnoses Preop testing Procedures ECG 12 Lead Matthew Pérez MD [address] [facility] 2 [place] [address] Referral ID Status Reason Start Date Expiration Date V isits Requested Visits Authorized [id number] Pending Review 08/16/2023 08/15/2024 1 1 Reason Comments Follow-up 6 MONTH F/U - ONLY L ABS DONE WERE ORDERED BY TIMBER TRIMMER DR. PÉREZ - PENDING LAPAROSCOPY AND IUD PLACEMENT. MED REFILL LORAZEPAM. Reason Comments Fall Pt to ED from [facility], pt was transferring from her walker to [...] Preop testing Tachycardia Procedures Holter Or Event Belt And Link Shop Supervisor Everett Walton MD [address] [facility], Mohinder [address] [place] [phone] Referral ID Status Reason Start Date Expiration Date V isits Requested Visits Authorized [id number] Authorized 09/21/2023 09/20/2024 1 1 Specialty Diagnoses / Procedures Referred By Contac t Referred To Contact Radiology Diagnoses Preop testing Tachycardia Procedures Nuclear Stress Test CHG MYOCARDIAL SPECT MULTIPLE STUDIES CHG MYOCARDIAL SPECT SINGLE STUDY AT REST OR STRESS Everett Walton MD 350 [facility], [facility] 2 [place] [phone] Referral ID Status Reason Start Date Expiration Date V isits Requested Visits Authorized [id number] Authorized 09/21/2023 09/20/2024 5 5 Reason Comments New Patient Patient is here for frequent falls. She is having high blood pressure, heart races at times.Very difficult for her to walk, very unsteady. Specialty Diagnoses / Procedures Referred By Shashi mathew Referred To Contact Neurology Diagnoses Frequent falls Procedures SC OFFICE/OUTPATIENT NEW HIGH MDM 60-74 MINUTES Valentina Chopra MD [address] [place] [address] Satya Faith MD [address] [place] [address] Referral ID Status Reason Start Date Expiration Date V isits Requested Visits Authorized [id number] Closed Specialty Services Required 08/19/2023 08/18/2024 1 [...] Expiration Date Visits Re quested Visits Authorized [id number] 1 1 Reason Comments Follow-up Follow up Reason Onset Date Comments Records Request/[facility] Reason Onset Date Comments question 01/03/2024 Reason Comments Establish Care Reason Comments Follow-up 3 month follow-up Reason Comments Follow-up MED REFILL TODAY Reason Comments Consult EndometriosisFibroid sChaperone not requiredReviewed and approved by LUCY NEWELL on 04/05/24 at 10:56 AM. Specialty Diagnoses / Procedures Referred By Contac t Referred To Contact Obstetrics and Gynecology Diagnoses Endometriosis Valentina Munoz MD [address] [place] [address] [facility], [facility] 2 [place] [address] Referral ID Status Reason Start Date Expiration Date Visits Requested Visits Authorized [id number] Authorized Specialty Services Required 11/10/2023 11/09/2024 1 1 Reason Comments Psoriasis New Patient(JY) Specialty Diagnoses / Procedures Referred By Contac t Referred To Contact Dermatology Diagnoses Psoriasis, unspecified Procedures consultation Mejia Cullen MD [address] [place] [address] [facility] Derm 1 [facility] [address] [place] [address] Referral ID Status Reason Start Date Expiration Date V isits Requested Visits Authorized [id number] Pending Review 04/14/2024 04/14/2025 1 1 Reason Comments Abdominal Pain Specialty Diagnoses / Procedures Referred By Contac t Referred To Contact Diagnoses Thrombocytopenia (HCC) Acute appendicitis History of epilepsy Elevated serum creatinine Acute appendicitis, unspecified acute appendicitis type Referral ID Status Reason Start Date Expiration Date Visits Re quested Visits Authorized [id number] 1 1 Reason Comments Follow-up Lap appendectomy Reason Comments New Patient New Patient referred to us by Dr. Chopra for seizures. Last seizure was in March of 2024 and went to [facility] in [place]. 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) Procedures SC OFFICE/OUTPATIENT NEW HIGH MDM 60 MINUTES Valentina Chopra MD [address] [place] [address] Sohail Hernandez MD PhD [address] [facility] [address] [place] [address] Referral ID Status Reason Start Date Expiration Date Visits Requested Visits Authorized [id number] Pending Review Specialty Services Required 04/17/2024 04/17/2025 [...] screening tomosynthesis Jeanie Ayala MD [address] [place] [address] Referral ID Status Reason Start Date Expiration Date Visits Requested Visits Authorized [id number] Authorized Perform Procedure 12/13/2023 12/12/2024 1 1 Reason Comments Follow-up VIRTUAL [phone] (NURSE WITH ST LOBO) - F/U ER [...] surgery. Reason Onset Date Comments Other 10/30/2024 [facility] Aleksey Ledesma MD - 03/16/2019 4:18 PM EDT Procedure Notes (unrecognize d section and content) Associated Order(s): EEG (STANDARD) [facility] EEG Report Reason for EEG: Seizures. Summary: [...] OT - 12/02/2020 1:44 PM Gauri Randhawa WASTE WATER OPERATOR POWER SEWING MACHINE OPERATOR - 12/02/2020 9:27 AM EST Consult Notes (unrecognized section and content) Associated Order(s): IP CONSULT TO NEUROLOGY Neurology Inpatient Consult [facility] 03/16/2019 Patient: Reema Shah Date of : 1975 (43 y.o.) Referring Provider: Refer to consult order in electronic medical record PCP: Nedra Brewer CNP ASSESSMENT: 43 y.o. female presented to [facility] on 03/16/2019 with seizures. PLAN: Seizure (HCC) [...] toxicity. She follows with Dr. Gillette from [place]. She was also using Keppra 750 mg [...] to 1000 mg twice a day. 3. [place] seizure precautions. 4. Monitor frequency alcohol seizures. [...] Portions of this chart was created using GLO voice recognition software. Occasional wrong-word or sound-like [...] This occurred after she was discharged from [facility] where her Depakote was discontinued because [...] History: Diagnosis Date Acquired thrombocytopenia ([facility]) [facility]/Lopez Shaikh Acute kidney injury (HCC) 05/22/2018 [facility]/Jonatan Chiu DO Anxiety Calcaneal spur of right foot 2016 Documented on x-ray Chronic kidney disease, stage III (moderate) ([facility]) 2000 Congestive heart failure (CHF) ([facility]) [facility]Lopez Shaikh Depression Epilepsy ([facility]) 08/06/2011 [facility]- Dr. Chopra Epilepsy ([facility]) 1993 Facet degeneration of lumbar region 10/14/2018 [facility]/Jono ALEXIS, ulius Mild facet degenerative changes seen in the lower lumbar spine Fatty liver [facility]/Joe Mendieta MD Mild fibrofatty changes of the liver Fluid collection (edema) in the arms, legs, hands and feet 03/09/2018 Dr valentina Chopra Gastritis determined by endoscopy 12/29/2016 Dr. GonzalezSnkzrm-Hwlbcvinu-mcpifjtlkoesn nonbleeding with biopsy Hepatic steatosis [facility]/Heidy Jara MD Mild Hiatal hernia 12/29/[address] Lobo grade 4 Hypercholesterolemia [facility]/Jonaatn Chiu DO Hypertension 2000 2000-present Insomnia [facility]opez Shaikh Kidney stone [facility]Lopez Shaikh Lung nodule 12/15/2017 0.5 cm pleural based nodule in right middle lobe. Mild linear atelectasis Mitral valve prolapse [facility]/Lopez Shaikh Motor seizure ([facility]) 03/16/2019 INFO GAINED FROM: /[facility] ED VISIT --- BLAKE STEELECAREN Rectus diastasis [facility]/Heidy Jara MD Present with small wide necked perumbical ventral containing fat. Second degree burn of foot 04/23/2018 Right Foot - [facility] Sleep apnea Stroke (HCC) 2001 mild Tremor Past Surgical History: Procedure Laterality Date Conner pH capsule placement 02/01/2017 Dr. Lobo BREAST REDUCTION 2000 bilateral [facility] 4 hiatal hernia-nonperforating gastritis ESOPHAGEAL MANOMETRY [...] file Gets together: Not on file Attends hinduism service: Not on file Active member of [...] mEq Oral Daily venlafaxine 37.5 mg Oral [facility] PRN Medications: senna OBJECTIVE: Physical Examination: BP [...] patient's family / caregiver support is a lean process deployment consultant for return to prior level of function. The patient's compliance is a lean process deployment consultant to return to prior level of function. [...] Walker Prior Level of Function Level of Energy: Needs assistance with ADLs, Needs assistance with homemaking Lives With: Family(Cousin and cousin's daughter) Receives Help From: Family ADL Assistance: Needs assistance Homemaking Assistance: Needs assistance Comments: Pt reports mod I with transfers using FWW. Requires some assist with all ADLs, cousin performs all IADLs. Past Medical History: Diagnosis Date Acquired thrombocytopenia ([facility]) [facility] Sha[facility] Acute kidney injury (HCC) 05/22/2018 [facility]/Jonatan Chiu DO Anxiety Arm abrasion 06/19/2019 INFO GAINED FROM: /[facility] ED VISIT NOTE --- AC GAO MD Calcaneal spur of right foot 2016 Documented on x-ray CKD (chronic kidney disease) Congestive heart failure (CHF) ([facility]) [facility]opez Shaikh Contusion, hip 06/19/2019 INFO GAINED FROM: /[facility] ED VISIT NOTE --- AC GAO MD Depression Epilepsy ([facility]) 08/06/2011 [facility]- [facility]. Chopra Epilepsy ([facility]) 1994 Facet degeneration of lumbar region 10/14/2018 [facility]/Jono ALEXIS, Moi Mild facet degenerative changes seen in the lower lumbar spine Fatty liver [facility]/Joe Mendieta MD Mild fibrofatty changes of the liver Fluid collection (edema) in the arms, legs, hands and feet 03/09/2018 Dr valentina Chopra Gastritis determined by endoscopy 12/29/2016 Dr. GonzalezJedwun-Uenwdseqd-tpdmnyyqcnzek nonbleeding with biopsy 1 para 1 Hepatic steatosis [facility]/Heidy Jara MD Mild Hiatal hernia 12/29/[address] Lobo grade 4 Hypercholesterolemia [facility]/Jonatan Chiu DO Hypertension 2000 2000-present Insomnia [facility]/Lopez Shaikh Kidney stone [facility]Lopez Shaikh Laceration of head 06/19/2019 INFO GAINED FROM: /[facility] ED VISIT NOTE --- AC GAO MD Lung nodule 12/15/2017 0.5 cm pleural based nodule in right middle lobe. Mild linear atelectasis Mitral valve prolapse [facility]/Lopez Shaikh Motor seizure (HCC) 03/16/2019 INFO GAINED FROM: /[facility] ED VISIT --- BLAKE STEELE,CAREN Rectus diastasis [facility]/Heidy Jara MD Present with small wide necked perumbical ventral containing fat. Second degree burn of foot 04/23/2018 Right Foot - [facility] Sleep apnea Stroke (HCC) 2000 mild Tremor Past Surgical History: Procedure Laterality Date Conner pH capsule placement 02/01/2017 Dr. Lobo BREAST REDUCTION 2000 bilateral EGD 12/29/[facility]-grade 4 hiatal hernia-nonperforating gastritis ESOPHAGEAL MANOMETRY [...] AM Per notes from Becki, emergency room addiction social worker, patient needs placement and would like an [place] facility. Becki spoke with Marifer with [facility] and they are willing to review the patient. Facility linked to in-basket. Patient Name: Reema Shah Date of : 1975 Sex: Female Discharge Planning Living Arrangements: Family members Caregiver Identified: Yes Caregiver's Name: Maria M Vicente Support Systems: Family members Assistance Needed: Moderate Type of Residence: Private residence Prior to Admission Home Care Services: No Patient expects to be discharged to:: Alf Facility Does the patient need discharge transport arranged?: Yes Has discharge transport been arranged?: No Current Home Equipment: Walker Anticipated Facility Type: long-term facility Anticipated Discharge Plan Anticipated Facility Type: long-term facility [facility] Disposition D/C Disposition: Alf Facility Agency/Destination: [facility] Options Reviewed: Explained services/benefits Reason for Choice: Patient/Family preference documented in this encounter Mirtha Crocker RN - 12/26/2018 9:36 AM EDT Nursing Notes (unrecognized section and content) Resting EKG NSR. Patient tolerated Dobutamine well. No c/o CP or SOB. in this encounter Veronika Hernandez CNP - 12/01/2020 4:31 PM EST H&P Notes (unrecognized sect ion and content) [facility] Medicine Inpatient H&P 12/01/2020 Veronika Hernandez CNP [facility] Patient: Reema Shah Date of : 1975 (45 y.o.) PCP: Nedra Brewer CNP Assessment Reema Shah 45 y.o. female with history of Past Medical History: Diagnosis Date Acquired thrombocytopenia (HCC) [facility] Acute kidney injury (HCC) 05/22/2018 [facility]/Jonatan Chiu DO Anxiety Arm abrasion 06/19/2019 INFO GAINED FROM: /[facility] ED VISIT NOTE --- AC GAO MD Calcaneal spur of right foot 2017 Documented on x-ray CKD (chronic kidney disease) Congestive heart failure (CHF) ([facility]) [facility]/Lopez Shaikh Contusion, hip 06/19/2019 INFO GAINED FROM: /[facility] ED VISIT NOTE --- AC GAO MD Depression Epilepsy ([facility]) 08/06/2011 [facility]- [facility]. Chopra Epilepsy ([facility]) 1994 Facet degeneration of lumbar region 10/14/2018 [facility]/Jono ALEXIS, Moi Mild facet degenerative changes seen in the lower lumbar spine Fatty liver [facility]/Joe Mendieta MD Mild fibrofatty changes of the liver Fluid collection (edema) in the arms, legs, hands and feet 03/09/2018 Dr valentina Chopra Gastritis determined by endoscopy 12/29/2016 Dr. GonzalezMpxoqo-Gtvpmgjks-jlddvwqwvkcfw nonbleeding with biopsy 1 para 1 Hepatic steatosis [facility]/Heidy Jara MD Mild Hiatal hernia 12/29/[address] Lobo grade 4 Hypercholesterolemia [facility]/Jonatan Chiu DO Hypertension 2000 2000-present Insomnia [facility]/Lopez Shaikh Kidney stone [facility]opez Sha[facility] Laceration of head 06/19/2019 INFO GAINED FROM: /[facility] ED VISIT NOTE --- AC GAO MD Lung nodule 12/15/2017 0.5 cm pleural based nodule in right middle lobe. Mild linear atelectasis Mitral valve prolapse [facility]opez Shaikh Motor seizure ([facility]) 03/16/2019 INFO GAINED FROM: /[facility] ED VISIT --- BLAKE STEELE,CAREN Rectus diastasis [facility]/Heidy Jara MD Present with small wide necked perumbical ventral containing fat. Second degree burn of foot 04/23/2018 Right Foot - [facility] Sleep apnea Stroke ([facility]) 2000 mild Tremor Principal Problem: Fall Active Problems: Weakness Closed undisplaced fracture of nasal bone, initial encounter Hypokalemia Seizures ([facility]) Essential hypertension Acute kidney injury superimposed on CKD ([facility]) Hypothyroidism GERD (gastroesophageal reflux disease) Thrombocytopenia ([facility]) Plan: 1. Fall of Toilet & Weakness: [...] Cervical Spine. ED cleared her C-Spine. Ms. Shha states that she does have a headache [...] had been discharged from a facility in [place] to live with her cousin. Per the [...] her to go to a facility in [place]. Ms. Shah requested that the Promotional Model try anywhere else in [place] that's not assisted living. Contacted [facility] who state they will not be able to consider Pt until tomorrow. Also contacted [facility] and spoke with Marifer Hampton ([phone]) who reports they do have bed availability. The Pt's MIX HOUSE TENDER, Charlee Richey, contacted Social Work today and stated that she was concerned about the Pt and is trying to help with placement. Mayte states that she strongly advocates that Pt be admitted somewhere. Mayte reports that if anything is needed to contact her at her office [phone] and connect with option 1 to leave a message. Mayte also provided her personal cell phone, [phone], in the event that she is needed [...] Center/[facility] Acute kidney injury (HCC) 05/22/2018 [facility]/Jonatan Chiu DO Anxiety Arm abrasion 06/19/2019 INFO GAINED FROM: /[facility] ED VISIT NOTE --- AC GAO MD Calcaneal spur of right foot 2016 Documented on x-ray CKD (chronic kidney disease) Congestive heart failure (CHF) ([facility]) [facility] Contusion, hip 06/19/2019 INFO GAINED FROM: /[facility] ED VISIT NOTE --- AC GAO MD Depression Epilepsy ([facility]) 08/06/2011 [facility]- [facility]. Chopra Epilepsy ([facility]) 1993 Facet degeneration of lumbar region 10/14/2018 [facility]/Jono ALEXIS, Moi Mild facet degenerative changes seen in the lower lumbar spine Fatty liver [facility]/Joe Mendieta MD Mild fibrofatty changes of the liver Fluid collection (edema) in the arms, legs, hands and feet 03/09/2018 Dr valentina Chopra Gastritis determined by endoscopy 12/29/2016 Dr. LeeJlwshl-Wqtmdzclk-ejgtcwzwnhvoo nonbleeding with biopsy 1 para 1 Hepatic steatosis [facility]/Heidy Jara MD Mild Hiatal hernia 12/29/[address] Lobo grade 4 Hypercholesterolemia [facility]/Jonatan Chiu DO Hypertension 2000 2000-present Insomnia Neuro [facility]opez Shaikh Kidney stone [facility]/Lopez Shaikh Laceration of head 06/19/2019 INFO GAINED FROM: /[facility] ED VISIT NOTE --- AC GAO MD Lung nodule 12/15/2017 0.5 cm pleural based nodule in right middle lobe. Mild linear atelectasis Mitral valve prolapse [facility]/Lopez Shaikh Motor seizure ([facility]) 03/16/2019 INFO GAINED FROM: [facility] ED VISIT --- GILMAN DO,CAREN Rectus diastasis [facility]/Heidy Jara MD Present with small wide necked perumbical ventral containing fat. Second degree burn of foot 04/23/2018 Right Foot - [facility] Sleep apnea Stroke ([facility]) 2000 mild Tremor Past Surgical History: Procedure Laterality Date Conner pH capsule placement 02/01/2017 Dr. Lobo BREAST REDUCTION 1999 bilateral [facility]-nonperforating gastritis ESOPHAGEAL MANOMETRY [...] her care. 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 She was currently living with her cousin in [place]. Allergies: Codeine, Dilaudid [hydromorphone], Erythromycin, Iodine and [...] TALKATIVE. C/O HEADACHE AND SOME NECK DISCOMFORT. [facility] ED Attending Note: NAME: Reema Shah 45 y.o. CSN: [id number] PCP: Nedra Brewer CNP History: Chief Complaint: [...] History: Diagnosis Date Acquired thrombocytopenia ([facility]) [facility] Shaikh Acute kidney injury (HCC) 05/22/2018 [facility]/Jonatan Chiu DO Anxiety Arm abrasion 06/19/2019 INFO GAINED FROM: /[facility] ED VISIT NOTE --- AC GAO MD Calcaneal spur of right foot 2016 Documented on x-ray Chronic kidney disease, stage III (moderate) 2000 Congestive heart failure (CHF) ([facility]) [facility]/Lopez Shaikh Contusion, hip 06/19/2019 INFO GAINED FROM: /[facility] ED VISIT NOTE --- AC GAO MD Depression Epilepsy ([facility]) 08/06/2011 [facility] Chopra Epilepsy ([facility]) 1993 Facet degeneration of lumbar region 10/14/2018 [facility]/Jono ALEXIS, Saulius Mild facet degenerative changes seen in the lower lumbar spine Fatty liver [facility]/Joe Mendieta MD Mild fibrofatty changes of the liver Fluid collection (edema) in the arms, legs, hands and feet 03/09/2018 Dr valentina Chopra Gastritis determined by endoscopy 12/29/2016 Dr. GonzalezIjbjrh-Knddtsham-okfoznqahpfgr nonbleeding with biopsy Hepatic steatosis [facility]/Heidy Jara MD Mild Hiatal hernia 12/29/[address] Lobo grade 4 Hypercholesterolemia [facility]/Jonatan Chiu DO Hypertension 2001 2001-present Insomnia [facility] Kidney stone [facility] Laceration of head 06/19/2019 INFO GAINED FROM: /[facility] ED VISIT NOTE --- MENG ALEXISAC Lung nodule 12/15/2017 0.5 cm pleural based nodule in right middle lobe. Mild linear atelectasis Mitral valve prolapse [facility]/Lopez Shaikh Motor seizure (HCC) 03/16/2019 INFO GAINED FROM: /[facility] ED VISIT --- BLAKE STEELE,CAREN Rectus diastasis [facility]/Heidy Jara MD Present with small wide necked perumbical ventral containing fat. Second degree burn of foot 04/23/2018 Right Foot - [facility] Sleep apnea Stroke (HCC) 2000 mild Tremor PMSx: Past Surgical History: Procedure Laterality Date Conner pH capsule placement 02/01/2017 Dr. Lobo BREAST REDUCTION 1999 bilateral EGD 12/29[facility] hiatal her[facility]-nonperforating gastritis ESOPHAGEAL MANOMETRY [...] file Gets together: Not on file Attends hinduism service: Not on file Active member of [...] home, she was recently discharged from the skilled nursing. And given this, plan to admit for placement as it Wednesday, social work has discussed with nursing homes case management can assist tomorrow for placement Clinical Impression: 1. Seizures (HCC) 2. Medication refill 3. Closed fracture of nasal bone, initial encounter Christiano Olivares MD [facility] Emergency Department (Please note that portions [...] Care Teams (unrecognized sec tion and content) Fairing Man Relationship Specialty Start Date End Date Jeanie Ayala MD [address] [place] [address] PCP - General Internal Medicine 12/18/20 Fairing Man Relationship Specialty Start Date End Date Jeanie Ayala MD [address] [place] [address] PCP - General Internal Medicine 12/18/20 Fairing Man Relationship Specialty Start Date End Date Dimas Brooke MD [address] [place] [address] PCP - General Family Medicine 09/01/16 02/19/19 Nedra Brewer CNP [address] [address] PCP - General Nurse Practitioner 02/20/19 11/30/20 Nedra Brewer CNP [address] [address] PCP - General Nurse Practitioner 12/01/20 12/17/20 Jeanie Ayala MD [address] [place] [address] PCP - General Internal Medicine 12/18/20 Dimas Brooke MD [address] [place] [address] Referring Physician Family Medicine 10/07/16 05/14/21 Jemma Figueroa, charger operator Family Medicine 03/27/19 05/14/21 Ana Hodge Consulting Physician Neurology 11/21/18 05/14/21 Fairing Man Relationship Specialty Start Date End Date Jeanie Ayala MD [address] [place] [address] PCP - General 07/18/19 Fairing Man Relationship Specialty Start Date End Date Jeanie Ayala MD [address] [place] [place] [address] PCP - General 07/18/19 Fairing Man Relationship Specialty Start Date End Date Jeanie Ayala MD [address] [place] [address] PCP - General 07/18/19 Jeanie Ayala MD [address] [place] [place] [address] PCP - [facility] Medicaid PCP 04/17/23 Fairing Man Relationship Specialty Start Date End Date Jeanie Ayala MD [address] [place] [address] PCP - General 07/18/19 Jeanie Ayala MD [address] [place] [address] PCP - [facility] Medicaid PCP 04/17/23 Fairing Man Relationship Specialty Start Date End Date Jeanie Ayala MD [address] [place] [address] PCP - General 07/18/19 Jeanie Ayala MD [address] [place] [address] PCP - [facility] Medicaid PCP 04/17/23 Fairing Man Relationship Specialty Start Date End Date Jeanie Ayala MD [address] [place] [address] PCP - General 07/18/19 Jeanie Ayala MD [address] [place] [address] PCP [facility] Medicaid PCP 04/17/23 Fairing Man Relationship Specialty Start Date End Date Jeanie Ayala MD [address] [place] [address] PCP - General 07/18/19 Jeanie Ayala MD [address] [place] [address] PCP [facility] Medicaid PCP 04/17/23 Fairing Man Relationship Specialty Start Date End Date Jeanie Ayala [address] [place] [address] PCP - General Internal Medicine 08/19/23 Fairing Man Relationship Specialty Start Date End Date Jeanie Ayala [address] [place] [address] PCP - General Internal Medicine 08/19/23 Fairing Man Relationship Specialty Start Date End Date Jeanie Ayala MD [address] [place] [address] PCP - General 07/18/19 Jeanie Ayala MD [address] [place] [address] PCP - [facility] Medicaid PCP 04/17/23 Fairing Man Relationship Specialty Start Date End Date Jeanie Ayala MD [address] [place] [address] PCP - General 07/18/19 Jeanie Ayala MD [address] [place] [address] PCP - [facility] Medicaid PCP 04/17/23 Fairing Man Relationship Specialty Start Date End Date Jeanie Ayala MD [address] [place] [address] PCP - General 07/18/19 Jeanie Ayala MD [address] [place] [address] PCP [facility] Medicaid PCP 04/17/23 Fairing Man Relationship Specialty Start Date End Date Jeanie Ayala MD [address] [place] [address] PCP - General 07/18/19 Jeanie Ayala MD [address] [place] [address] PCP [facility] Medicaid PCP 04/17/23 Fairing Man Relationship Specialty Start Date End Date Jeanie Ayala MD [address] [place] [address] PCP - General 07/18/19 Jeanie Ayala MD [address] [place] [address] PCP [facility] Medicaid PCP 04/17/23 Fairing Man Relationship Specialty Start Date End Date Jeanie Ayala MD [address] [place] [address] PCP - General 07/18/19 Jeanie Ayala MD [address] [place] [address] PCP [facility] Medicaid PCP 04/17/23 Fairing Man Relationship Specialty Start Date End Date Jeanie Ayala MD [address] [place] [address] PCP - General 07/18/19 Jeanie Ayala MD [address] [place] [address] PCP [facility] Medicaid PCP 04/17/23 Fairing Man Relationship Specialty Start Date End Date Jeanie Ayala MD [address] [place] [address] PCP - General 07/18/19 Jeanie Ayala MD [address] [place] [address] PCP - [facility] Medicaid PCP 04/17/23 Fairing Man Relationship Specialty Start Date End Date Jeanie Ayala MD [address] [place] [address] PCP - General 07/18/19 Jeanie Ayala MD [address] [place] [address] PCP - [facility] Medicaid PCP 04/17/23 Fairing Man Relationship Specialty Start Date End Date Jeanie Ayala MD [address] [place] [address] PCP - General 07/18/19 Jeanie Ayala MD [address] [place] [address] PCP - [facility] Medicaid PCP 04/17/23 Fairing Man Relationship Specialty Start Date End Date Jeanie Ayala [address] [place] [address] PCP - General Internal Medicine 08/19/23 Fairing Man Relationship Specialty Start Date End Date Jeanie Ayala [address] [place] [address] PCP - General Internal Medicine 08/19/23 Fairing Man Relationship Specialty Start Date End Date Jeanie Ayala MD [address] [place] [address] PCP - General 07/18/19 Jeanie Ayala MD [address] [place] [address] PCP - [facility] Medicaid PCP 04/17/23 Fairing Man Relationship Specialty Start Date End Date Jeanie Ayala MD [address] [place] [address] PCP - General 07/18/19 Jeanie Ayala MD [address] [facility] [place] [place] [address] PCP - [facility] Medicaid PCP 04/17/23 Fairing Man Relationship Specialty Start Date End Date Jeanie Ayala [address] [facility] [place] [place] [address] PCP - General Internal Medicine 08/19/23 Fairing Man Relationship Specialty Start Date End Date Jeanie Ayala [address] [place] [address] PCP - General Internal Medicine 08/19/23 Fairing Man Relationship Specialty Start Date End Date Jeanie Ayala MD [address] [place] [address] PCP - General Internal Medicine 12/18/20 Fairing Man Relationship Specialty Start Date End Date Lam Ayaladad [address] [facility] [place] [place] [address] PCP - General Internal Medicine 08/19/23 Fairing Man Relationship Specialty Start Date End Date Jeanie Ayala [address] [place] [place] [address] PCP - General Internal Medicine 08/19/23 Fairing Man Relationship Specialty Start Date End Date Jyoti Gupta MD [address] [place] [address] PCP - General Family Medicine 02/04/24 Fairing Man Relationship Specialty Start Date End Date Jeanie Ayala [address] [place] [address] PCP - General Internal Medicine 08/19/23 Fairing Man Relationship Specialty Start Date End Date Jeanie Ayala MD [address] [place] [address] PCP - General 07/18/19 Jeanie Ayala MD [address] [place] [place] [address] PCP - [facility] Medicaid PCP 04/17/23 Fairing Man Relationship Specialty Start Date End Date Jeanie Ayala MD [address] [place] [address] PCP - General 07/18/19 Jeanie Ayala MD [address] [place] [address] PCP - [facility] Medicaid PCP 04/17/23 Fairing Man Relationship Specialty Start Date End Date Jeanie Ayala [address] [place] [address] PCP - General Internal Medicine 08/19/23 Fairing Man Relationship Specialty Start Date End Date Jyoti Gupta MD [address] [place] [address] PCP - General Family Medicine 03/02/24 Fairing Man Relationship Specialty Start Date End Date Jyoti Gupta MD [address] [place] [address] PCP - General Family Medicine 03/02/24 Fairing Man Relationship Specialty Start Date End Date Jeanie Ayala [address] [place] [place] [address] PCP - General Internal Medicine 08/19/23 Fairing Man Relationship Specialty Start Date End Date Jeanie Ayala [address] [place] [place] [address] PCP - General Internal Medicine 08/19/23 Fairing Man Relationship Specialty Start Date End Date Jeanie Ayala [address] [place] [address] PCP - General Internal Medicine 08/19/23 Fairing Man Relationship Specialty Start Date End Date Jeanie Ayala MD [address] [place] [address] PCP - General 07/18/19 Jeanie Ayala MD [address] [place] [address] PCP - [facility] Medicaid PCP 04/17/23 Fairing Man Relationship Specialty Start Date End Date Jeanie Ayala MD [address] [place] [address] PCP - General 07/18/19 Fairing Man Relationship Specialty Start Date End Date Jeanie Ayala [address] [place] [address] PCP - General Internal Medicine 08/19/23 Fairing Man Relationship Specialty Start Date End Date Jeanie Ayala [address] [place] [address] PCP - General Internal Medicine 08/19/23 Fairing Man Relationship Specialty Start Date End Date Jeanie Ayala [address] [place] [address] PCP - General Internal Medicine 08/19/23 Fairing Man Relationship Specialty Start Date End Date Jeanie Ayala MD [address] [place] [place] [address] PCP - General 07/18/19 Jeanie Ayala MD [address] [place] [address] PCP - [facility] Medicaid PCP 04/17/23 4 Fairing Man Relationship Specialty Start Date End Date Jeanie Ayala [address] [place] [address] PCP - General Internal Medicine 08/19/23 Fairing Man Relationship Specialty Start Date End Date Jeanie Ayala [address] [place] [address] PCP - General Internal Medicine 08/19/23 Fairing Man Relationship Specialty Start Date End Date Jeanie Ayala [address] [place] [address] PCP - General Internal Medicine 08/19/23 Team Status: Active Member Role Status Dates Dr. Sree Jamison MD Primary Care Provider Active Team Status: Active Member Role Status Dates Dr. Sree Jamison MD Primary Care Provider Active Start: January 01, 2025 Dr. Sree Jamison MD Attending Provider Active Start: January 01, 2025 Sree SALDANA [facility] Provider Active Start : January 01, 2025 [...] 04, 2025 End: April 05, 2025 Dr. Lawson Higgins MD Emergency Provider Active Sta rt: [...] Nubia Garcia RN) 09 (Given - Provider: Litzy Garcia RN) calcium carbonate (TUMS) chewable tablet [...] For 1 dose, Anginal pain, may repeat [id number] x3, then notify physician. DO NOT CRUSH [...] Gabe Barclay TECHNOLOGIST - Comment: Lot Number: [id number] ) LORazepam (ATIVAN) tablet 2 mg 2 [...] mL, Intravenous, Once in imaging, contrast, Per cinema operator (Radiology) for line patency check prior to contrast administration, Starting on Wed12/31/23 at 2139, For 1 dose 2155 (Given - Provider: Gabe Barclay, TECHNOLOGIST) sodium chloride (PF) (NS) 0.9 % contrast line flush 80 mL (COMPLETED)(Linked Group 3) 80 mL, Intravenous, Once in imaging, contrast, Per cinema operator (Radiology), Starting on Wed12/31/23 at 2139, For [...] mL, Intravenous, Once in imaging, contrast, Per cinema operator (Radiology) for line patency check prior to contrast administration, Starting on Wed12/31/23 at 2139, For 1 dose And sodium chloride (PF) (NS) 0.9 % contrast line flush 80 mL (COMPLETED)Jump to med 80 mL, Intravenous, Once in imaging, contrast, Per cinema operator (Radiology), Starting on Wed12/31/23 at 2139, For [...] 1500mg or less 0118 (Given - Provider: Anegla Edwards RN)0911 (Given - Provider: Litzy Ma, [...] Gabe Barclay, TECHNOLOGIST - Comment: Lot Number: [id number]: ) ketorolac (TORADOL) injection 15 mg 15 [...] mL, Intravenous, Once in imaging, contrast, Per cinema operator (Radiology) for line patency check prior to contrast administration, Starting on Wed06/04/24 at 211, For 1 dose 2126 (Given - Provider: Gabe Barclay TECHNOLOGIST) sodium chloride (PF) (NS) 0.9 % contrast line flush 80 mL (COMPLETED)(Linked Group 3) 80 mL, Intravenous, Once in imaging, contrast, Per cinema operator (Radiology), Starting on Wed06/04/24 at 2114, For [...] mL, Intravenous, Once in imaging, contrast, Per cinema operator (Radiology) for line patency check prior to contrast administration, Starting on Wed06/04/24 at 2114, For 1 dose And sodium chloride (PF) (NS) 0.9 % contrast line flush 80 mL (COMPLETED)Jump to med 80 mL, Intravenous, Once in imaging, contrast, Per cinema operator (Radiology), Starting on Wed06/04/24 at 2114, For [...] at 0900 0959 (Given - Provider: Diann Atris RN) 0847 (Given - Provider: Curtis Oshea [...] BE BASED ON THE PRIMARY CLINICAL RECORDS. [facility] [employer] [facility]. provides no warranty or guarantee of the accuracy or completeness of information in this document.
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
--- NOTE | 2025-04-23 03:37 | EX.ED.DYSGE1 ---
HPI History of Present Illness Chief Complaint: Mental Health Informant: patient, EMS and SNF Narrative Narrative: Patient is a 49-year-old female with past medical history of hypertension borderline personality disorder hypothyroidism. She stays at a snf. She states that the weekend staff will not get her up and she is on a list that this is supposed to be done daily. She reports that she cannot get up on her own and is extremely upset that they are not following her directives. She states that because of this increased stress she does not want to be at the facility and this is making her want to harm herself. She states that she attempted to harm herself years ago when she lives by herself. She states she does not have a plan at this time. Please note that snf staff reports that the patient has been very upset and argumentative and combative. The snf staff reports that she only began saying that she was going to hurt herself because she wanted to leave the facility. [facility] Medical History Borderline personality disorder Long-term use of high-risk medication Systolic heart failure Major depressive disorder Tremor History of [place] (myocardial infarction) History of TIA (transient ischemic attack) MELQUIADES (obstructive sleep apnea) Separation of muscle (nontraumatic), unspecified site Nonrheumatic mitral (valve) prolapse Hypercholesteremia Fatty liver Edema Diaphragmatic hernia Hirsutism Fracture of nasal bone Insomnia History of UTI Obesity Psoriasis GERD (gastroesophageal reflux disease) CKD (chronic kidney disease) Epileptic seizure, generalized Hypokalemia Hypothyroidism [place] Home Medications ?Medication ?Instructions ?Recorded ?Last Taken ?Type albuterol sulfate 90 mcg/actuation 1 - 2 puff inhalation Q6H PRN PRN 03/05/20 Unknown History aerosol inhaler Sob &/Or Wheezing acetaminophen 325 mg capsule 650 mg PO Q4H PRN fever or pain 06/05/21 Unknown History (Tylenol) artifi.tears(hypromellose)(PF) 0.3 2 drp ophthalmic (eye) .Q1HR PRN 06/05/21 Unknown History % eye drops dry eye(s) atorvastatin 20 mg tablet 20 mg PO QHS 06/05/21 Unknown History buspirone 10 mg tablet 10 mg PO QHS 06/05/21 Unknown History levothyroxine 25 mcg capsule 25 mcg PO DAILY 06/05/21 Unknown History loratadine 10 mg capsule 10 mg PO Q24H 06/05/21 Unknown History melatonin 5 mg capsule 10 mg PO QHS PRN insomnia 06/05/21 Unknown History potassium chloride 10 mEq 20 meq PO BID 08/26/21 Unknown History capsule,extended release calcium carbonate (Sriram-Gest 200 mg PO DAILY 12/23/21 Unknown History Antacid) cyanocobalamin (vitamin B-12) 1,000 mcg PO DAILY 12/23/21 Unknown History 1,000 mcg tablet guaifenesin 400 mg tablet 400 mg PO Q6H PRN cough 12/23/21 Unknown History menthol 4 % topical gel (Biofreeze 1 applic topical DAILY PRN pain 12/23/21 Unknown History (menthol)) levetiracetam 500 mg tablet 500 mg PO BID #60 tabs 08/13/22 Unknown Rx (Keppra) calcium 600 mg (as 1 tab PO BID 09/26/24 Unknown History carbonate)-vitamin D3 10 mcg (400 unit) tablet desvenlafaxine succinate 50 mg 100 mg PO DAILY 09/26/24 Unknown History tablet,extended release 24 hr famotidine 20 mg tablet 20 mg PO BID 09/26/24 Unknown History lidocaine 5 % topical patch 1 patch topical DAILY 09/26/24 Unknown History lisinopril 20 mg tablet 20 mg PO DAILY 09/26/24 Unknown History magnesium oxide 400 mg (241.3 mg 400 mg PO DAILY 09/26/24 Unknown History magnesium) tablet metoprolol tartrate 25 mg tablet 25 mg PO BID 09/26/24 Unknown History ondansetron 4 mg disintegrating 4 mg PO Q6H PRN nausea and 09/26/24 Unknown Rx tablet vomiting #20 tabs primidone 50 mg tablet 200 mg PO BID 09/26/24 Unknown History lorazepam 1 mg tablet 2 mg PO Q12H 10/02/24 Unknown History amlodipine 5 mg tablet 5 mg PO QHS 11/04/24 Unknown History allopurinol 100 mg tablet 100 mg PO DAILY 03/21/25 Unknown History bisacodyl 10 mg rectal suppository 10 mg LA DAILY PRN constipation 03/21/25 Unknown History cholecalciferol (vitamin D3) 50 2,000 unit PO DAILY 03/21/25 Unknown History mcg (2,000 unit) capsule clonidine HCl 0.1 mg tablet 0.1 mg PO Q12H 03/21/25 Unknown History divalproex 250 mg tablet,extended 250 mg PO BID 03/21/25 Unknown History release 24 hr magnesium hydroxide 400 mg/5 mL 30 ml PO DAILY PRN constipation 03/21/25 Unknown History oral suspension sennosides 8.6 mg tablet (senna) 8.6 mg PO DAILY 03/21/25 Unknown History desvenlafaxine succinate 100 mg 100 mg PO DAILY 04/23/25 Unknown History tablet,extended release 24 hr (Pristiq) Allergy/AdvReac Type Severity Reaction Status Date / Time phenytoin Allergy Mild Other Verified 04/23/25 01:51 gabapentin (From Neurontin) Allergy Unknown Unknown Verified 04/23/25 01:51 hydrocodone Allergy Unknown Unknown Verified 04/23/25 01:51 acetaminophen (From Vicodin) Allergy Rash Verified 04/23/25 01:51 erythromycin base Allergy Rash Verified 04/23/25 01:51 (Erythromycin Base) hydrocodone bitartrate (From Allergy Rash Verified 04/23/25 01:51 Vicodin) hydromorphone (From Dilaudid) Allergy Rash Verified 04/23/25 01:51 Penicillins Allergy Rash Verified 04/23/25 01:51 promethazine HCl (From Allergy Vomiting Verified 04/23/25 01:51 Phenergan) tramadol Allergy Rash Verified 04/23/25 01:51 codeine AdvReac Vomiting Verified 04/23/25 01:51 morphine AdvReac Vomiting Verified 04/23/25 01:51 ondansetron HCl (From Zofran) AdvReac Vomiting Verified 04/23/25 01:51 Social History housing: snf Smoking Status: Never smoker Electronic Cigarette Use: not used second hand exposure: No alcohol intake: never substance use type: does not use ROS ROS ED Constitutional Constitutional ED: Denies chills or fever(s) Eyes Eyes: Denies change in vision ENT ENT ED: Denies sore throat Cardiovascular Cardiovascular: Denies chest pain Respiratory/Chest Respiratory/Chest: Denies cough or dyspnea Gastrointestinal Gastrointestinal: Denies abdominal pain, diarrhea, nausea or vomiting Genitourinary Genitourinary ED: Denies dysuria Musculoskeletal Musculoskeletal: Denies myalgias Integumentary Denies rash Neurologic Neurologic: Denies headache(s) Psychiatric Psychiatric: Reports depression and suicidal thoughts EXAM Physical Exam Const Vital Signs: 04/23/25 01:51 Temperature 98 F Temperature Source Temporal Pulse Rate 68 Respiratory Rate 18 Blood Pressure 174/99 H Blood Pressure Mean 124 Pulse Ox 98 Oxygen Delivery Method Room Air Positive well nourished, well developed and obese General Appearance ED: well developed; Negative for pallor Nutritional Appearance: obese HEENT HEENT Narrative: Normocephalic atraumatic Eyes PERRL and EOMs intact bilaterally General Eye ED: Negative for scleral icterus Neck supple Neck Narrative: No nuchal rigidity or meningeal signs Resp normal respiratory effort and clear to auscultation bilaterally Cardio regular rate and regular rhythm GI normal to inspection, nondistended, normoactive bowel sounds, non-tender, non-distended and no masses Auscultation: normoactive bowel sounds Palpation: soft Extremity normal to inspection Neuro oriented x3 and CN's II-XII intact bilaterally Sensorium / Orientation: alert Psych Psych Narrative: Patient has a depressed affect Skin no rashes or lesions noted General Skin Exam: Negative for jaundice or pallor MDM MDM MDM Narrative Medical decision making narrative: Patient arrived to ER hypertensive but has a past medical history of this and otherwise vitals are stable. She reports she is extremely upset at the snf staff for not getting her up. The staff states that she has been argumentative and combative and then began complaining of wanting to hurt herself as a means of getting out of the facility. The patient does not have access to her medications nor is she able to ambulate without assistance and therefore is extremely low risk for being able to harm herself. She does not have a plan and her reasons for coming to the hospital appear motivated by secondary gain. Therefore I feel no need for imaging or laboratory studies but patient can be evaluated by psychiatry/crisis center. After they evaluated the patient they agree that her motivation is behavioral as she does not want to be at the snf center as she does not get along with the weekend staff. The fact that she does not have access to her medications and cannot ambulate without help significantly lowers her risk for attempting to self-harm. Therefore there is no need for inpatient treatment but she can be followed up as an outpatient. History & Record Review Discussion w/independent historian: EMS personnel, Patient and Other (prison staff) Management Discussion w/another healthcare provider: Behavioral health Discharge Plan Triage Chief Complaint: Mental Health ED Provider: Fran Naylor Dx/Rx/DC Orders Clinical Impression: Mood disorder, HTN (hypertension), Hyperlipidemia Instructions: Understanding Mood Disorders Prescriptions: No Action atorvastatin 20 mg tablet 20 mg PO QHS buspirone 10 mg tablet 10 mg PO QHS levothyroxine 25 mcg capsule 25 mcg PO DAILY loratadine 10 mg capsule 10 mg PO Q24H melatonin 5 mg capsule 10 mg PO QHS PRN (Reason: insomnia) acetaminophen [Tylenol] 325 mg capsule 650 mg PO Q4H PRN (Reason: fever or pain) artifi.tears(hypromellose)(PF) 0.3 % drops 2 drp ophthalmic (eye) .Q1HR PRN (Reason: dry eye(s)) guaifenesin 400 mg tablet 400 mg PO Q6H PRN (Reason: cough) potassium chloride 10 mEq capsule, extended release 20 meq PO BID Biofreeze (menthol) 4 % gel 1 applic topical DAILY PRN (Reason: pain) calcium carbonate [Sriram-Gest Antacid] 200 mg calcium (500 mg) tablet,chewable 200 mg PO DAILY cyanocobalamin (vitamin B-12) 1,000 mcg tablet 1,000 mcg PO DAILY levetiracetam [Keppra] 500 mg tablet 500 mg PO BID Qty: 60 4RF albuterol sulfate 1 PUFF inhaler 1 - 2 puff inhalation Q6H PRN PRN (Reason: Sob &/Or Wheezing) lorazepam 1 mg tablet 2 mg PO Q12H Rx Instructions: 1mg at night and 2mg in the morning allopurinol 100 mg tablet 100 mg PO DAILY bisacodyl 10 mg suppository 10 mg LA DAILY PRN (Reason: constipation) clonidine HCl 0.1 mg tablet 0.1 mg PO Q12H magnesium hydroxide 400 mg/5 mL suspension 30 ml PO DAILY PRN (Reason: constipation) sennosides [senna] 8.6 mg tablet 8.6 mg PO DAILY cholecalciferol (vitamin D3) 50 mcg (2,000 unit) capsule 2,000 unit PO DAILY divalproex 250 mg tablet extended release 24 hr 250 mg PO BID desvenlafaxine succinate [Pristiq] 100 mg tablet extended release 24 hr 100 mg PO DAILY famotidine 20 mg tablet 20 mg PO BID calcium carbonate-vitamin D3 600 mg-10 mcg (400 unit) tablet 1 tab PO BID lisinopril 20 mg tablet 20 mg PO DAILY magnesium oxide 400 mg (241.3 mg magnesium) tablet 400 mg PO DAILY lidocaine 5 % adhesive patch,medicated 1 patch topical DAILY metoprolol tartrate 25 mg tablet 25 mg PO BID desvenlafaxine succinate 50 mg tablet extended release 24 hr 100 mg PO DAILY primidone 50 mg tablet 200 mg PO BID ondansetron 4 mg tablet,disintegrating 4 mg PO Q6H PRN (Reason: nausea and vomiting) Qty: 20 0RF amlodipine 5 mg tablet 5 mg PO QHS Primary Care Provider: Sree Jamison Referrals: Sree Jamison MD [Primary Care Provider] - Activity Restrictions/Additional Instructions: You will need to follow-up with psychiatry to discuss further potential treatment options. However at this time there is not a need for inpatient treatment. Please continue all of your home medications as directed by your doctor Print Language: Azeri Disposition Disposition: Home, Self Care
--- NOTE | 2025-04-23 03:37 | EX.ED.DYSGE1 ---
HPI History of Present Illness Chief Complaint: Mental Health Informant: patient, EMS and SNF Narrative Narrative: Patient is a 49-year-old female with past medical history of hypertension borderline personality disorder hypothyroidism. She stays at a long-term. She states that the weekend staff will not get her up and she is on a list that this is supposed to be done daily. She reports that she cannot get up on her own and is extremely upset that they are not following her directives. She states that because of this increased stress she does not want to be at the facility and this is making her want to harm herself. She states that she attempted to harm herself years ago when she lives by herself. She states she does not have a plan at this time. Please note that long-term staff reports that the patient has been very upset and argumentative and combative. The long-term staff reports that she only began saying that she was going to hurt herself because she wanted to leave the facility. [facility] Medical History Borderline personality disorder Long-term use of high-risk medication Systolic heart failure Major depressive disorder Tremor History of [place] (myocardial infarction) History of TIA (transient ischemic attack) [place] (obstructive sleep apnea) Separation of muscle (nontraumatic), unspecified site Nonrheumatic mitral (valve) prolapse Hypercholesteremia Fatty liver Edema Diaphragmatic hernia Hirsutism Fracture of nasal bone Insomnia History of UTI Obesity Psoriasis GERD (gastroesophageal reflux disease) CKD (chronic kidney disease) Epileptic seizure, generalized Hypokalemia Hypothyroidism [place] Home Medications ?Medication ?Instructions ?Recorded ?Last Taken ?Type albuterol sulfate 90 mcg/actuation 1 - 2 puff inhalation Q6H PRN PRN 03/05/20 Unknown History aerosol inhaler Sob &/Or Wheezing acetaminophen 325 mg capsule 650 mg PO Q4H PRN fever or pain 06/05/21 Unknown History (Tylenol) artifi.tears(hypromellose)(PF) 0.3 2 drp ophthalmic (eye) .Q1HR PRN 06/05/21 Unknown History % eye drops dry eye(s) atorvastatin 20 mg tablet 20 mg PO QHS 06/05/21 Unknown History buspirone 10 mg tablet 10 mg PO QHS 06/05/21 Unknown History levothyroxine 25 mcg capsule 25 mcg PO DAILY 06/05/21 Unknown History loratadine 10 mg capsule 10 mg PO Q24H 06/05/21 Unknown History melatonin 5 mg capsule 10 mg PO QHS PRN insomnia 06/05/21 Unknown History potassium chloride 10 mEq 20 meq PO BID 08/26/21 Unknown History capsule,extended release calcium carbonate (Sriram-Gest 200 mg PO DAILY 12/23/21 Unknown History Antacid) cyanocobalamin (vitamin B-12) 1,000 mcg PO DAILY 12/23/21 Unknown History 1,000 mcg tablet guaifenesin 400 mg tablet 400 mg PO Q6H PRN cough 12/23/21 Unknown History menthol 4 % topical gel (Biofreeze 1 applic topical DAILY PRN pain 12/23/21 Unknown History (menthol)) levetiracetam 500 mg tablet 500 mg PO BID #60 tabs 08/13/22 Unknown Rx (Keppra) calcium 600 mg (as 1 tab PO BID 09/26/24 Unknown History carbonate)-vitamin D3 10 mcg (400 unit) tablet desvenlafaxine succinate 50 mg 100 mg PO DAILY 09/26/24 Unknown History tablet,extended release 24 hr famotidine 20 mg tablet 20 mg PO BID 09/26/24 Unknown History lidocaine 5 % topical patch 1 patch topical DAILY 09/26/24 Unknown History lisinopril 20 mg tablet 20 mg PO DAILY 09/26/24 Unknown History magnesium oxide 400 mg (241.3 mg 400 mg PO DAILY 09/26/24 Unknown History magnesium) tablet metoprolol tartrate 25 mg tablet 25 mg PO BID 09/26/24 Unknown History ondansetron 4 mg disintegrating 4 mg PO Q6H PRN nausea and 09/26/24 Unknown Rx tablet vomiting #20 tabs primidone 50 mg tablet 200 mg PO BID 09/26/24 Unknown History lorazepam 1 mg tablet 2 mg PO Q12H 10/02/24 Unknown History amlodipine 5 mg tablet 5 mg PO QHS 11/04/24 Unknown History allopurinol 100 mg tablet 100 mg PO DAILY 03/21/25 Unknown History bisacodyl 10 mg rectal suppository 10 mg MD DAILY PRN constipation 03/21/25 Unknown History cholecalciferol (vitamin D3) 50 2,000 unit PO DAILY 03/21/25 Unknown History mcg (2,000 unit) capsule clonidine HCl 0.1 mg tablet 0.1 mg PO Q12H 03/21/25 Unknown History divalproex 250 mg tablet,extended 250 mg PO BID 03/21/25 Unknown History release 24 hr magnesium hydroxide 400 mg/5 mL 30 ml PO DAILY PRN constipation 03/21/25 Unknown History oral suspension sennosides 8.6 mg tablet (senna) 8.6 mg PO DAILY 03/21/25 Unknown History desvenlafaxine succinate 100 mg 100 mg PO DAILY 04/23/25 Unknown History tablet,extended release 24 hr (Pristiq) Allergy/AdvReac Type Severity Reaction Status Date / Time phenytoin Allergy Mild Other Verified 04/23/25 01:51 gabapentin (From Neurontin) Allergy Unknown Unknown Verified 04/23/25 01:51 hydrocodone Allergy Unknown Unknown Verified 04/23/25 01:51 acetaminophen (From Vicodin) Allergy Rash Verified 04/23/25 01:51 erythromycin base Allergy Rash Verified 04/23/25 01:51 (Erythromycin Base) hydrocodone bitartrate (From Allergy Rash Verified 04/23/25 01:51 Vicodin) hydromorphone (From Dilaudid) Allergy Rash Verified 04/23/25 01:51 Penicillins Allergy Rash Verified 04/23/25 01:51 promethazine HCl (From Allergy Vomiting Verified 04/23/25 01:51 Phenergan) tramadol Allergy Rash Verified 04/23/25 01:51 codeine AdvReac Vomiting Verified 04/23/25 01:51 morphine AdvReac Vomiting Verified 04/23/25 01:51 ondansetron HCl (From Zofran) AdvReac Vomiting Verified 04/23/25 01:51 Social History housing: long-term Smoking Status: Never smoker Electronic Cigarette Use: not used second hand exposure: No alcohol intake: never substance use type: does not use ROS ROS ED Constitutional Constitutional ED: Denies chills or fever(s) Eyes Eyes: Denies change in vision ENT ENT ED: Denies sore throat Cardiovascular Cardiovascular: Denies chest pain Respiratory/Chest Respiratory/Chest: Denies cough or dyspnea Gastrointestinal Gastrointestinal: Denies abdominal pain, diarrhea, nausea or vomiting Genitourinary Genitourinary ED: Denies dysuria Musculoskeletal Musculoskeletal: Denies myalgias Integumentary Denies rash Neurologic Neurologic: Denies headache(s) Psychiatric Psychiatric: Reports depression and suicidal thoughts EXAM Physical Exam Const Vital Signs: 04/23/25 01:51 Temperature 98 F Temperature Source Temporal Pulse Rate 68 Respiratory Rate 18 Blood Pressure 174/99 H Blood Pressure Mean 124 Pulse Ox 98 Oxygen Delivery Method Room Air Positive well nourished, well developed and obese General Appearance ED: well developed; Negative for pallor Nutritional Appearance: obese HEENT HEENT Narrative: Normocephalic atraumatic Eyes PERRL and EOMs intact bilaterally General Eye ED: Negative for scleral icterus Neck supple Neck Narrative: No nuchal rigidity or meningeal signs Resp normal respiratory effort and clear to auscultation bilaterally Cardio regular rate and regular rhythm GI normal to inspection, nondistended, normoactive bowel sounds, non-tender, non-distended and no masses Auscultation: normoactive bowel sounds Palpation: soft Extremity normal to inspection Neuro oriented x3 and CN's II-XII intact bilaterally Sensorium / Orientation: alert Psych Psych Narrative: Patient has a depressed affect Skin no rashes or lesions noted General Skin Exam: Negative for jaundice or pallor MDM MDM MDM Narrative Medical decision making narrative: Patient arrived to ER hypertensive but has a past medical history of this and otherwise vitals are stable. She reports she is extremely upset at the long-term staff for not getting her up. The staff states that she has been argumentative and combative and then began complaining of wanting to hurt herself as a means of getting out of the facility. The patient does not have access to her medications nor is she able to ambulate without assistance and therefore is extremely low risk for being able to harm herself. She does not have a plan and her reasons for coming to the hospital appear motivated by secondary gain. Therefore I feel no need for imaging or laboratory studies but patient can be evaluated by psychiatry/crisis center. After they evaluated the patient they agree that her motivation is behavioral as she does not want to be at the long-term center as she does not get along with the weekend staff. The fact that she does not have access to her medications and cannot ambulate without help significantly lowers her risk for attempting to self-harm. Therefore there is no need for inpatient treatment but she can be followed up as an outpatient. History & Record Review Discussion w/independent historian: EMS personnel, Patient and Other (penitentiary staff) Management Discussion w/another healthcare provider: Behavioral health Discharge Plan Triage Chief Complaint: Mental Health ED Provider: Fran Naylor Dx/Rx/DC Orders Clinical Impression: Mood disorder, HTN (hypertension), Hyperlipidemia Instructions: Understanding Mood Disorders Prescriptions: No Action atorvastatin 20 mg tablet 20 mg PO QHS buspirone 10 mg tablet 10 mg PO QHS levothyroxine 25 mcg capsule 25 mcg PO DAILY loratadine 10 mg capsule 10 mg PO Q24H melatonin 5 mg capsule 10 mg PO QHS PRN (Reason: insomnia) acetaminophen [Tylenol] 325 mg capsule 650 mg PO Q4H PRN (Reason: fever or pain) artifi.tears(hypromellose)(PF) 0.3 % drops 2 drp ophthalmic (eye) .Q1HR PRN (Reason: dry eye(s)) guaifenesin 400 mg tablet 400 mg PO Q6H PRN (Reason: cough) potassium chloride 10 mEq capsule, extended release 20 meq PO BID Biofreeze (menthol) 4 % gel 1 applic topical DAILY PRN (Reason: pain) calcium carbonate [Sriram-Gest Antacid] 200 mg calcium (500 mg) tablet,chewable 200 mg PO DAILY cyanocobalamin (vitamin B-12) 1,000 mcg tablet 1,000 mcg PO DAILY levetiracetam [Keppra] 500 mg tablet 500 mg PO BID Qty: 60 4RF albuterol sulfate 1 PUFF inhaler 1 - 2 puff inhalation Q6H PRN PRN (Reason: Sob &/Or Wheezing) lorazepam 1 mg tablet 2 mg PO Q12H Rx Instructions: 1mg at night and 2mg in the morning allopurinol 100 mg tablet 100 mg PO DAILY bisacodyl 10 mg suppository 10 mg MD DAILY PRN (Reason: constipation) clonidine HCl 0.1 mg tablet 0.1 mg PO Q12H magnesium hydroxide 400 mg/5 mL suspension 30 ml PO DAILY PRN (Reason: constipation) sennosides [senna] 8.6 mg tablet 8.6 mg PO DAILY cholecalciferol (vitamin D3) 50 mcg (2,000 unit) capsule 2,000 unit PO DAILY divalproex 250 mg tablet extended release 24 hr 250 mg PO BID desvenlafaxine succinate [Pristiq] 100 mg tablet extended release 24 hr 100 mg PO DAILY famotidine 20 mg tablet 20 mg PO BID calcium carbonate-vitamin D3 600 mg-10 mcg (400 unit) tablet 1 tab PO BID lisinopril 20 mg tablet 20 mg PO DAILY magnesium oxide 400 mg (241.3 mg magnesium) tablet 400 mg PO DAILY lidocaine 5 % adhesive patch,medicated 1 patch topical DAILY metoprolol tartrate 25 mg tablet 25 mg PO BID desvenlafaxine succinate 50 mg tablet extended release 24 hr 100 mg PO DAILY primidone 50 mg tablet 200 mg PO BID ondansetron 4 mg tablet,disintegrating 4 mg PO Q6H PRN (Reason: nausea and vomiting) Qty: 20 0RF amlodipine 5 mg tablet 5 mg PO QHS Primary Care Provider: Sree Jamison Referrals: Sree Jamison MD [Primary Care Provider] - Activity Restrictions/Additional Instructions: You will need to follow-up with psychiatry to discuss further potential treatment options. However at this time there is not a need for inpatient treatment. Please continue all of your home medications as directed by your doctor Print Language: Romanian Disposition Disposition: Home, Self Care
[2025-04-23 04:54] VITALS: BP 169/74; PULSE 87; RESP 18; TEMP 36.8; O2SAT 97
--- NOTE | 2025-04-23 07:36 | PCA ---
CALLED AT 0639 FOR AN UPDATED ETA AND THEY SAID IT WOULD BE 0730.
--- NOTE | 2025-04-23 07:36 | PCA ---
CALLED AT 0639 FOR AN UPDATED ETA AND THEY SAID IT WOULD BE 0730.
--- NOTE | 2025-04-23 08:06 | ED.RN ---
report called to Jeanna Johnson
--- NOTE | 2025-04-23 08:06 | ED.RN ---
report called to Jeanna Johnson
== END 2025-04-23 08:10 | disposition home or self-care (01) ==
PROVIDERS: Emergency Provider Emergency Medicine; PCP Family Medicine; Visit Provider Emergency Medicine
DX: F32.A Depression, unspecified (principal); F60.3 Borderline personality disorder; I13.0 Hypertensive heart and chronic kidney disease with heart failure and stage 1 through stage 4 chronic kidney disease, or unspecified chronic kidney disease; I50.22 Chronic systolic (congestive) heart failure; N18.9 Chronic kidney disease, unspecified; E03.9 Hypothyroidism, unspecified; E78.00 Pure hypercholesterolemia, unspecified; R45.851 Suicidal ideations; E66.9 Obesity, unspecified
CPT/HCPCS: 99285

== ENCOUNTER 2025-05-21 02:30 | Emergency (ER) | payer MEDICAID, SELFPAY ==
[2025-05-21 02:31] VITALS: BP 178/117; PULSE 106; RESP 27; TEMP 36.4; O2SAT 95; BMI 34.3
--- NOTE | 2025-05-21 02:49 | EKG12_ITS ---
Test Reason : CP Blood Pressure : */* mmHG Vent. Rate : 97 BPM Atrial Rate : 97 BPM P-R Int : 150 ms QRS Dur : 76 ms QT Int : 394 ms P-R-T Axes : 71 65 75 degrees QTcB Int : 500 ms Normal sinus rhythm Prolonged QT Abnormal ECG Confirmed by OMA ALEXIS, ELTON ([id number]), senior editor VIVI VILLARREAL ([id number]) on 05/21/2025 9:50:40 AM Referred By: Confirmed By: ELTON ERNANDEZ MD
--- NOTE | 2025-05-21 03:00 | RAD_ITS ---
PROCEDURE: CHEST 1 VIEW (PORTABLE) 05/21/2025 REASON FOR EXAM: CHEST PAIN TECHNIQUE: Frontal view of the chest. COMPARISON: 10/14/2024 FINDINGS: Lordotic positioning. Normal heart size. Status post fundoplication. Elevated right hemidiaphragm. Well inflated lungs. No consolidation, effusion, or pneumothorax. RAD/Chest 1 View (Portable) IMPRESSION: No acute chest findings Reading Location: [place] [id number]
[2025-05-21 03:02] LABS: Hematocrit 43.3 % (37-47); Hemoglobin 15.6 g/dL (12.0-15.0); Immature Granulocytes Count 0.040 X10^3/uL (0.0-0.0); Mean Corp Hgb Conc 36.0 g/dL (32-36); Mean Corpuscular Volume 85.7 fL (81-99); Mean Platelet Vol. 10.3 fl (6.2-12.0); NRBC Flagged by Analyzer 0 % (0-5); Platelet Count 152 K/mm3 (150-450); RBC Distribution Width CV 12.9 % (11.6-14.6); RBC Distribution Width SD 39.7 fl (35.1-43.9); Red Blood Count 5.05 M/mm3 (4.2-5.4); White Blood Count 7.3 K/mm3 (4.4-11.0)
[2025-05-21 03:30] VITALS: BP 183/102; PULSE 83; RESP 17; O2SAT 94
[2025-05-21 03:31] LABS: Anion Gap 14 (5-15); BUN 40 mg/dL (4-19); BUN/Creat Ratio 27.9 RATIO (10-20); Calcium,Total 9.8 mg/dL (7.6-11.0); Carbon Dioxide 25.1 mmol/L (21.0-32.0); Chloride 98 mmol/L (98-108); Estimated Creatinine Clearance 42.16 ml/min (50-250); Glucose 97 mg/dL (70-99); Potassium 4.4 mmol/L (3.3-5.1); Troponin T High Sensitivity 14 ng/L (<=14)
--- OUTSIDE RECORDS SUMMARY | 2025-05-21 03:33 | XMS RPT_ITS | CCD ---
Author Organization [facility] Care Team Providers Care Zipper Ironer Name Role Phone Dimas Brooke Unavailable Dimas Brooke Unavailable VALENTINA CHOPRA Unavailable Unavailable VALENTINA CHOPRA Unavailable Unavailable VALENTINA CHOPRA Unavailable Unavailable VALENTINA CHOPRA Unavailable Unavailable SUMMER HALEY Unavailable Unavailable DIMAS BROOKE Unavailable Unavailable Jemma Figueroa Unavailable Unavailable Dimas Brooke Primary Care Provider [phone] Dimas Brooke Unavailable [phone] Dimas Brooke Admitting Unavailable Dimas Brooke Attending Unavailable Zeke Onofre Admitting Unavailable Zeke Onofre E Attending Unavailable Kingston, Jessica Admitting Unavailable Canyon Jessica Attending Unavailable Leigh Ann Ayala Admitting Unavailable Leigh Ann Ayala Attending Unavailable Bobby Zavala Admitting Unavailable Bobby Zavala Attending Unavailable Dimas Brooke Unavailable [phone] Nedra Brewer Primary Care Provider Jemma Figueroa Unavailable Unavailable Montrose, Anel Unavailable Unavailable Tavallaee, Jeanie M Unavailable Unavailable Ivelisse Shaikh Unavailable Unavailable Update Needed Unavailable Unavailable Urban Purdy Unavailable Unavailable Tavallteto, Jeanie M Unavailable Unavailable Dimas Brooke Unavailable Nedra Brewer Primary Care Provider [phone] [place], Jeanie Monazzam Primary Care Provide r Tavallaee, Jeanie M Unavailable Unavailable Unavailable Tavallaee, Jeanie M Unavailable MoomawTenisha I Unavailable Unavailable Ron, Anel Unavailable Shilpa Douglas Unavailable Unavailable Lit Ledezma Unavailable Unavailable Unavailable Franco Heaton Unavailable Unavailable Unavailable Unavailable Larry Eugene Unavailable Unavailabl e Pérez, Matthew Unavailable Unavailable Jeanie Ayala MD Primary Care Prov ider Dimas Brooke MD Unavailable [place] Nedra LARKIN Primary Care Provider Jemma Figueroa RN Unavailable Unavailable Larry Eugene Unavailable Unavailabl e Nichol Davidsein Unavailable Unavailable Lopez Gutierrez Unavailable Unavailable Unavailable Unavailable Dinesh Chun Unavailable Unavailable Jovita, Andres Unavailable Unavailable Reanna Kemp Unavailable Jeanie Ayala MD Primary Care Prov ider Dimas Brooke MD Primary Care Provider Dimas Brooke MD Unavailable [place] Nedra LARKIN Primary Care Provider Jemma Figueroa RN Unavailable Unavailable [place] Nedra LARKIN Primary Care Provider Caren Gilman Unavailable Unavailable Rayne Lin Unavailable Unavailable Jeison Clancy Unavailable Abhi Richards Unavailable Unavailable CAREN AL Attending Unavailable TAVALLAEE, JEANIE MONAZZAM Primary Care Unav ailable TAVALLAEE, JEANIE MONAZZAM Primary Care Unav ailable CAREN AL Attending Unavailable [place] Jeanie ALEXIS Primary Care Provider Kindra Downinge Unavailable Unavailable NazallJeanie de la rosa MD Unavailable [place]avallaee, Jeanie Primary Care Unavailable Angel, Dr. Bardales Attending Unavailable Angel, Dr. Bardales Referring Unavailable Tavallaee, Jeanie Primary Care Unavailable Angel, Dr. Bardales Attending Unavailable Angel, Dr. Bardales Referring Unavailable Tavallaee, Jeanie Primary Care Unavailable Justo, Ms. Reanna Rubio Attending Unavailabl e [place], Jeanie Primary Care Unavailable Dr. Lit Ledezma Attending Unavail able [place], Jeanie Primary Care Unavailable Justo, Ms. Reanna Rubio Attending Unavailabl e [place]avalla[place], Jeanie Primary Care Unavailable Justo, Ms. Reanna Rubio Attending Unavailabl e [place], Jeanie Primary Care Unavailable Justo, Ms. Reanna Rubio Attending Unavailabl e [place], Jeanie Primary Care Unavailable Justo, Ms. Reanna Rubio Attending Unavailabl e [place], Jeanie Primary Care Unavailable Dr. Abhi Richards Attending Unava ilable [place], Jeanie Primary Care Unavailable Mukul, Dr. Caren Pelaez Attending Unavaila ble [place], Jeanie Primary Care Unavailable Shanna, Dr. Larry Cool Attending Unav ailable [place], Jeanie Primary Care Unavailable Mukul, Dr. Caren Pelaez Attending Unavaila ble [place], Jeanie Primary Care Unavailable Mukul, Dr. Caren Pelaez Attending Unavaila ble [place], Jeanie Primary Care Unavailable Angel, Dr. Bardales Attending Unavailable Angel, Dr. Bardales Referring Unavailable Tavallaee, Jeanie Primary Care Unavailable Angel, Dr. Bardales Referring Unavailable Angel, Dr. Bardales Attending Unavailable [place]avalla[place], Jeanie Primary Care Unavailable Bandar David Attending Unavailable Nichol Davidsein Admitting Unavailable Tavalla[place], Jeanie Primary Care Unavailable Jovita, Dr. Andres Maya Attending Unavailabl e [place], Jeanie Primary Care Unavailable Justo, Ms. Reanna Rubio Attending Unavailabl e [place], Jeanie Primary Care Unavailable Shanna, Dr. Larry Cool Attending Unav ailable [place], Jeanie Primary Care Unavailable Justo, Ms. [...] Jeanie Primary Care Unavailable Kemp, Ms. Reanna M Attending Unavailabl e [place]av[place], Jeanie Primary Care Unavailable Kemp, Ms. Reanna M Attending Unavailabl e [place], Jeanie Primary Care Unavailable Kemp, Ms. Reanna M Attending Unavailabl e [place], Jeanie Primary Care Unavailable Kemp, Ms. Reanna M Attending Unavailabl e [place], Jeanie Primary Care Unavailable Kemp, Ms. Reanna M Attending Unavailabl e [place], Jeanie Primary Care Unavailable Kemp, Ms. Reanna M Attending Unavailabl e [place], Jeanie Primary Care Unavailable Kemp, Ms. Reanna M Attending Unavailabl e [place], Jeanie Primary Care Unavailable Kemp, Ms. Reanna M Attending Unavailabl e [place], Jeanie Primary Care Unavailable Kemp, Ms. Reanna Rubio Attending Unavailabl e [place], Jeanie Primary Care Unavailable Dr. Andres Hussein Attending Unavailabl e [place], Jeanie Primary Care Unavailable Beto, Dr. Matthew Hines Attending Unav ailable Pérez, Dr. Matthew Hines Referring Unav ailable [place], Jeanie Primary Care Unavailable Dr. Lit Ledezma Attending Unavail able [place], Jeanie Primary Care Unavailable [facility], Ms. Massey Attending Unavail able [place], Jeanie Primary Care Unavailable Hamad, Bandar Admitting Unavailable Hamad, Bandar Attending Unavailable Tavalla[place], Jeanie Primary Care Unavailable Kemp, MsJanina Reanna M Attending Unavailabl e [place], Jeanie Primary Care Unavailable Kemp, MsJanina Rubio Attending Unavailabl e [place], Jeanie Primary Care Unavailable Dr. Lopez Gutierrez Attending Unavaila ble [place], Jeanie Primary Care Unavailable Kemp, MsJanina Rubio Attending Unavailabl e [place], Jeanie Primary Care Provider Dr. Jeanie Ayala Primary Care Unavailable Kevin, Mrs. Rayne Jones Referring Unavai lable Lin, Mrs. Mclain Karen Attending Unavai lable Tavalla[place], Dr. Jeanie Corral Primary Care Unavailable Tav[place], Dr. Jeanie Corral Referring Unavailable Angel, Dr. Bardales Attending Unavailable Tav[place], Dr. Jeanie Corral Primary Care Unavailable Kevin, Mrs. Rayne Jones Referring Unavai lable Lin, Mrs. Rayne Fullerecca Attending Unavai lable [place], Dr. Jeanie Corral Primary Care Unavailable [place], Dr. Jeanie Corral Primary Care Unavailable Kemp, Ms. Reanna Rubio Referring Unavailabl e Kemp, Ms. Reanna Rubio Attending Unavailabl e [place], Dr. Jeanie Corral Primary Care Unavailable Kemp, MsJanina Rubio Referring Unavailabl e Kemp, Ms. Reanna Rubio Attending Unavailabl e Tav[place], Dr. Jeanie Corral Primary Care Unavailable Kemp, MsJanina Rubio Referring Unavailabl e Kemp, Ms. Reanna Rubio Attending Unavailabl e [place], Dr. Jeanie Corral Primary Care Unavailable Kemp, MsJanina Reanna M Referring Unavailabl e Kemp, MsJanina Rubio Attending Unavailabl e [place], Dr. Jeanie Corral Primary Care Unavailable T[place], Dr. Jeanie Corral Referring Unavailable Tav[place], Dr. Jeanie Corral Attending Unavailable Tav[place], Dr. Jeanie Corral Primary Care Unavailable Tav[place], Dr. Jeanie Corral Referring Unavailable Tavalla[place], Dr. Jeanie Corral Attending Unavailable Tavalla[place], Dr. Jeanie Corral Primary Care Unavailable Tavalla[place], Dr. Jeanie Corral Referring Unavailable Tavalla[place], Dr. Jeanie Corral Attending Unavailable Tavalla[place], Dr. Jeanie Corral Primary Care Unavailable Tav[place], Dr. Jeanie Corral Referring Unavailable Tavalla[place], Dr. Jeanie Corral Attending Unavailable Tavalla[place], Dr. Jeanie Corral Primary Care Unavailable T[place], Dr. Jeanie Corral Referring Unavailable Young, Dr. Jeison Eddy Attending Unavail able Tav[place], Dr. Jeanie Corral Primary Care Unavailable Young, Dr. Jeison Eddy Referring Unavail able Young, Dr. Jeison Eddy Attending Unavail able [place], Dr. Jeanie Corrla Primary Care Unavailable MD MATTHEW PÉREZ Referring Unava ilable PÉREZ, MD MATTHEW HINES Attending Unava ilable T[place], Dr. Jeanie Corral Primary Care Unavailable MD MATTHEW PÉREZ Referring Unava ilable BETO, MD MATTHEW HINES Attending Unava ilable TAVALLAEEJEANIE Primary Care Unavailable JEANIE AYALA Primary Care Unavailable TAVALLJEANIE DE LA ROSA Primary Care Unavailable Jyoti Gupta MD Primary Care Provider Jyoti Gupta MD Primary Care Provider RAÚL HUDSON Attending Unavailable ALONSO, JYOTI MAHARAJ Primary Care Unavaila ble [facility], JYOTI MAHARAJ Referring Unavaila ble DAREK STARK JR. Attending Unava ilable [facility], [facility] Primary Care Unavaila ble [facility] Referring Unavaila ble [facility], JYOTI MAHARAJ Primary Care Unavaila ble ITZEL DUMAS Attending Unavailable [facility] Referring Unavaila ble CHANCE LALA Attending Unavailable [facility] Consult[facility] LISA Bass Admitting Unavail able ALONSO, JYOTI MAHARAJ Primary Care Unavaila ble VALENTINA CHOPRA Referring Unavailable TAVALLAEE, JEANIE CORRAL Primary Care Unav ailable [facility] Consulting CAROLYNN Carmen Attending Unavailable JYOTI GUPTA Referring Unavaila ble NAVEEN HERNANDEZ Admitting Unavailable TAVALLAEE, JEANIE CORRAL Primary Care Unav ailable DESTINEE PRICE Attending Unavail able SCOTT TOPETE Admitting Unavailab le JYOTI GUPTA Primary Care Unavaila ble [facility] Consulting Sandyvai lable TAVALLAEE, JEANIE RILEYZAPuma Primary Care Unav ailable JYOTI GUPTA Attending Unavaila ble TAVALLAEE, JEANIE M Primary Care Unavailable LIT LEDEZMA Attending Unavailable ROMAN YOBANY, EVERETT DEMOND Referring Unava [...] Care Unavailable Tavallaee, Jeanie Primary Care Provider Jamie ALEXIS, Jeanie Rubio Primary Care Provider [phone] Jamie ALEXIS, Jeanie Rubio Unavailable KHALIDA MTZ Attending Unavailable VALENTINA MUNOZ Referring Unavailable TAVALLAEE, JEANIE M Primary Care Unavailable SHAYY MCGINNIS Attending Unavailable TAVALLAEE, JEANIE M Primary Care Unavailable Yaquelin ALEXIS, Dr. Balbuena Primary Care Provider Yaquelin ALEXIS, Dr. Balbuena Attending Provider [phone] Yaquelin SALDANA, Sree Referring Provider Unavailable Ro ALEXIS, Dr. Sosa Emergency Provider Ro ALEXIS, Dr. Sosa Attending Provider Ronaldo ALEXIS, Dr. Pathak Emergency Provider Ronaldo ALEXIS, Dr. Pathak Attending Provider Cyndy STEELE, Dr. Peters Emergency Provider Jamison, Sree Primary Care Unavailable Mathew Perez Attending Unavailable Tim Newby Attending Unavailable Jamison, Sree Primary Care Unavailable Jamison Sree SALDANA Referring Unavailable Jamison, Sree Attending Unavailable Jamison, Sree Primary Care Unavailable Jamison, Sree Attending Unavailable Jamison, Sree Referring Unavailable Jamison, Sree Primary Care Unavailable Jamison, Sree Primary Care Unavailable Georges Kelley Attending Unavailable Ian Starr Attending Unavailable Yaquelin, Sree Primary Care Unavailable Ian Starr Attending Unavailable Jamison, Sree Primary Care Unavailable Lawson Higgins Attending Unavailable Jamison, Sree Primary Care Unavailable Fran Naylor Attending Unavailable Jamison, Sree Primary Care Unavailable Archie Sanches Attending Unavailable Jamison, Sree Primary Care Unavailable Geovanny Arndt Attending Unavailable Jamison, Sree Primary Care Unavailable Fran Naylor Attending Unavailable Jamison, Sree Primary Care Unavailable TAVALLAEE, JEANIE Primary Care Unavailable ROC BANEGAS Attending Unavailable SOHAIL HERNANDEZ Referring Unavailable DRENIC, SRINIVASA Admitting Unavailable TAVALLAEE, JEANIE Primary Care Unavailable SOHAIL HERNANDEZ Attending Unavailable BAVIS, VALENTINA Attending Unavailable TAVALLAEE, JEANIE Primary Care Unavailable TAVALLAEE, JEANIE Primary Care Unavailable SOHAIL HERNANDEZ Attending Unavailable TAVALLAEE, JEANIE Primary Care Unavailable MEJIA CULLEN Referring Unavailable GAYATRI ABAD Attending Unavailable TAVALLAEE, JEANIE Primary Care Unavailable SOHAIL HERNANDEZ Attending Unavailable VALENTINA CHOPRA Referring Unavailable TAVALLAEE, JEANIE Primary Care Unavailable VALENTINA CHOPRA Attending Unavailable TAVALLAEE, JEANIE Primary Care Unavailable GAYATRI ABAD Attending Unavailable TAVALLAEE, JEANIE Primary Care Unavailable SOHAIL HERNANDEZ Attending Unavailable Allergies Allergy Classification Reported Allergen(s) Allergy Type Date of Onset Reaction(s) Facility Anti-Epileptic Agents (5 sources) Phenytoin; Translations: [phenytoin] Drug Allergy [address] Work Phone: Macrolides (antibiotic) (18 sources) Erythromycin; Translations: [Erythromycin Base TABS] Drug Allergy Rash [address] Work Phone: Ondansetron (5 sources) Ondansetron; Translations: [Zofran] Drug Allergy Vomiting [address] Work Phone: Opioid Agonists (20 sources) Codeine; Translations: [Codeine Derivatives] Drug Allergy Unknown [address] Work Phone: Penicillins (antibiotic) (13 sources) Penicillins; Translations: [Penicillins] Drug Allergy Rash, Unknown [address] Work Phone: Promethazine (14 sources) Promethazine; Translations: [Phenergan TABS] Drug Allergy Other [address] Work Phone: Comment on above: nausia/emesis. (20 sources) acetaminophen / HYDROcodone; Translations: [HYDROCODONE-ACET AMINOPHEN] Propensity to adverse reactions to drug 8 Other (See Comments), Unknown, Other [facility] (20 sources) codeine; Translations: [Codeine Derivatives] Propensity to adverse reactions to drug 6 Other (See Comments), Unknown, Other, Rash, Nausea And Vomiting [facility] Work Phone: (20 sources) erythromycin; Translations: [ERYTHROMYCIN] Propensity to adverse reactions to drug 5 Unknown, Rash [facility] Work Phone: (20 sources) gabapentin; Translations: [GABAPENTIN] Propensity to adverse reactions to drug 7 GI Intolerance, Nausea And Vomiting, Unknown [facility] Work Phone: (20 sources) Iodine Compounds Propensity to adverse reactions to drug 8 [facility] (20 sources) morphine; Translations: [MORPHINE SULFATE] Propensity to adverse reactions to drug 6 Other (See Comments) [facility] Work Phone: (20 sources) Penicillins; Translations: [PENICILLINS] Propensity to adverse reactions to drug 5 Rash [facility] Work Phone: (20 sources) promethazine; Translations: [Phenergan] Propensity to adverse reactions to drug 5 Other (See Comments), Unknown, Other, Nausea And Vomiting [facility] (20 sources) traMADol; Translations: [tramadol] Propensity to adverse reactions to drug 6 Unknown, Rash [facility] Work Phone: (20 sources) CT: IODINATED CONTRAST- ORAL AND IV DYE Propensity to adverse reactions to drug 8 [facility] (6 sources) promethazine; Translations: [PROMETHAZINE HCL] Drug Allergy 5 Vomiting [facility] (20 sources) OTHER; Translations: [OTHER] Propensity to adverse reactions (disorder) 5 [facility] (20 sources) HYDROmorphone; Translations: [Dilaudid] Drug Allergy 8 Unknown, Rash, Nausea and vomiting [facility] (20 sources) ondansetron; Translations: [ONDANSETRON HCL] Drug Allergy 8 Other (See Comments), Other [facility] (20 sources) Azithromycin; Translations: [Azithromycin TABS] Drug Allergy 7 Unknown, Rash, Nausea And Vomiting [address] Work Phone: (20 sources) Penicillins; Translations: [Penicillins] drug allergy Rash, Unknown [address] Work Phone: (20 sources) Ondansetron; Translations: [Zofran] Drug Allergy Vomiting [facility] Work Phone: (20 sources) Phenytoin; Translations: [phenytoin] Drug Allergy 1 Unknown [facility] Work Phone: (18 sources) Promethazine Drug Allergy Other [facility] [address] [facility] Work Phone: Comment on above: nausia/emesis. (10 sources) Acetaminophen; Translations: [ACETAMINOPHEN] Drug Allergy 7 Rash [facility] (20 sources) Promethazine; Translations: [Phenergan TABS] Drug Allergy [facility] Work Phone: (20 sources) HYDROcodone; Translations: [HYDROCODONE] Drug Allergy 7 Rash, Unknown [facility] (20 sources) Morphine Drug Allergy 6 Other, Unknown, Nausea And Vomiting [facility] (1 source) Penicillins Propensity to adverse reactions to drug 6 Rash [facility] (20 sources) Penicillins Propensity to adverse reactions to drug 6 Rash, Unknown [facility] (20 sources) Acetaminophen / HYDROcodone; Translations: [Vicodin TABS] Drug Allergy [address] Work Phone: (3 sources) gabapentin Drug Allergy Unknown [facility] (3 sources) HYDROmorphone Drug Allergy Unknown [facility] (20 sources) Acetaminophen Drug Allergy 7 Rash [facility] (20 sources) Ondansetron Drug Allergy 7 Other, Nausea And Vomiting [facility] (20 sources) Penicillins Drug Allergy 5 Rash, Unknown [facility] (20 sources) Erythromycin Base; Translations: [ERYTHROMYCIN BASE] Drug Allergy 7 Rash, Unknown [facility] (3 sources) Azithromycin; Translations: [AZITHROMYCIN] Drug Allergy 3 [facility] (1 source) Penicillins Drug Allergy 3 Unknown [facility] Work Phone: (4 sources) HYDROcodone; Translations: [hydrocodone bitartrate] Drug Allergy 5 Rash [facility] (1 source) Acetaminophen Drug Allergy 5 [facility] (1 source) Codeine Drug Allergy 5 [facility] (1 source) gabapentin Drug Allergy 5 [facility] (1 source) HYDROcodone Drug Allergy 5 [facility] (1 source) HYDROmorphone Drug Allergy 5 [facility] (1 source) Morphine Drug Allergy 5 [facility] (1 source) Ondansetron Drug Allergy 5 [facility] (1 source) Penicillins Drug allergy (disorder) 5 [facility] (1 source) traMADol Drug Allergy 5 [facility] Repository Medications Current Medications Medication Drug Class(es) [...] take 1 tablet by mouth at bedtime Amlodipine 5 mg tablet Active 5 mg PO AT BEDTIME November 04, 2024 1:00am Start: 01-01-2024 End: 01-01-2024 take 10 mg by mouth once daily 10 mg, Oral, Daily, [facility]ir st dose on 01/01/24 at 0900 Start: 12-01-2020 End: 12-03-2020 take [...] March 21, 2025 12:00am Start: 03-13-2025 End: 05-29-2025 take 10 mg rectal route every twenty-four [...] in Error) take 1 tablet by napoleon once daily Vitamin D3 125 mcg (5000 [...] Active cloNIDine hydrochloride 0.1 mg oral tablet (7 sources) Central alpha-2 Adrenergic Agonist Start: 03-21-2025 take 1 tablet by mouth every twelve hours Clonidine Hcl 0.1 mg tablet Active 0.1 mg PO Q12H March 21, 2025 12:00am Start: 03-21-2025 take 1 tablet by napoleon three times daily Clonidine Hcl 0.1 mg tablet Active 0.1 mg PO THREE TIMES A DAY March 21, 2025 12:00am Start: 03-13-2025 End: 03-15-2025 take 0.1 mg by mouth three times daily 0.1 mg, Oral, 3 times daily, First dose on Wed03/13/25 at 204 24 hr desvenlafaxine succinate 100 mg extended release oral tablet (18 sources) Serotonin and Norepinephrine Reuptake Inhibitor Start: 04-23-2025 take 1 tablet by mouth once daily, then take 1 tablet by mouth every twenty-four hours Desvenlafaxine Succinate (Pristiq) 100 mg tablet extended release 24 hr Active 100 mg PO DAILY April 23, 2025 12:00am Start: 03-14-2025 End: 03-15-2025 take 50 mg by mouth once daily 50 mg, Oral, Daily, Fir st dose on Wed03/14/25 at 0900, Do not crush, chew, or split. Start: 09-26-2024 take 1 tablet by [place]oleon once daily Desvenlafaxine Succinate 50 mg tablet extended release 24 hr Active 100 mg PO DAILY September 26, 2024 1:00am take 1 tablet by napoleon once daily desvenlafaxine (Pristiq) 100 MG 24 hr tablet Take 100 mg by mouth daily. Do not crush, chew, or split. Active dextran 70 1 mg/ml / glycerin 2 mg/ml / hypromellose 3 mg/ml ophthalmic solution (14 sources) Plasma Volume Connection Worker, Non-Standardized Chemical Allergen Artificial Tears ophthalmic solution [...] 20 mg/ml oral suspension (4 sources) Uncompetitive E-wqdpqw-Q-aspartate Receptor Antagonist, Sigma-1 Agonist guaiFENesin-dextrome thorphan (Robitussin [...] 2 times d aily, First dose on [facility] 03/16/19 at 0915 Start: 01-04-2018 End: 06-05-2021 take 1 tablet by mouth once daily Famotidine 40 MG tablet Discontinued 40 mg PO DAILY March 05, 2020 12:00am June 05, 2021 11:42am take 2 tablets by [facility] once daily famotidine (PEPCID) 10 MG tablet Take 2 (two) tablets (20 mg total) by mouth daily . Active take 6 tablets by [facility] once daily famotidine 20 mg oral [...] 23, 2021 11:24am take 3 tablets by [facility] every six hours as needed guaiFENesin (Humibid 3) 400 MG tablet Ta ke 400 mg by mouth every 6 hours as needed. Active take 1 tablet by [facility] every six hours as needed guaiFENesin [...] / neomycin 3.5 mg/ml / polymyxin b [id number] unt/ml otic solution (9 sources) Aminoglycoside Antibacterial, Polymyxin-class Antibacterial, Corticosteroid Start: 01-12-2023 End: 01-19-2023 pvztpwup-wgohkcknb-WN (Cortisporin) otic solution Indications: Otalgia of both ears Administer 2 drops into the right ear in the morning and 2 drops at noon and 2 drops in the evening and 2 drops before bedtime. Do all this for 7 days. 1 mL 0 01/12/2023 01/19/2023 Active Start: 07-17-2021 End: 11-04-2021 Oxkcsuky-Cjcccsifm-VY 1 % Ot ic Solution INSTILL 4 DROP 4 times daily Quantity: 1 Refills: 0 Ordered: 17-Jul-2021 Sammie Iglesias MD Start : 17-Jul-2021 End : 04-Nov-2021 Complete hypromellose 3 mg/ml ophthalmic solution (7 sources) Start: 06-05-2021 Artifi.Tears(H ypromellose)(Pf) 0.3 % [...] DAILY Quantity: 30 Refills: 11 Ordered: 29-Oct-2022 Jeanie Ayala MD Start : 29-Oct-2022 Active Start: 10-12-2018 End: [...] mg Quantity: 0 Refills: 0 Ordered: 04-Feb-2023 Johana Hernandez Generic Substitution Allowed Magnesium Hydroxide (20 sources) [...] 2024 1:00am menthol 0.04 mg/mg topical gel (13 sources) Start: 12-23-2021 Menthol (Biofr eeze (Menthol)) [...] 4 mg naloxone (NARCAN) 4 mg/actua tion [place] (3 sources) Start: 06-06-2024 naloxone (NARC AN) 4 mg/actuation [place] Administer 1 spray into one nostril for known or suspected opioid overdose. If patient worsens or does not respond, may repeat in 2-3 minutes. . 2 each 06/06/2024 Active Start: 06-06-2024 naloxone (NARC AN) 4 mg/actuation [place] Administer 1 spray into one nostril for known or suspected opioid overdose. If patient worsens or does not respond, may repeat in 2-3 minutes. . 2 each 06/06/2024 ondansetron 4 mg disintegrating oral tablet (8 sources) Serotonin-3 Receptor Antagonist Start: 09-26-2024 take 1 tablet by mouth every six hours as needed for nausea and vomiting Ondansetron 4 mg tablet,disintegrating Active 4 mg PO EVERY 6 HOURS as needed for nausea and vomiting 20 0 September 26, 2024 1:00am Start: 06-06-2024 End: 08-27-2024 take 1 tablet by mouth every eight [...] Substitution Allowed Sennosides (Senna) 8.6 mg tablet (3 sources) Start: 03-21-2025 take 1 tablet by [...] Intra-articular Quantity: 0 Refills: 0 Ordered: 16-Sep-2022 Reanna Holland Start : 16-Sep-2022 Complete 24 hr divalproex [...] daily, First dose (after last modification) on 12/31/23 at 2340, CATEGORY D HAZARDOUS DRUG use [...] hr Discontinued 250 mg PO EVERY MORNING 14 02August 13, 2022 9:04pm March 21, 2025 9:57am [...] hr Discontinued 500 mg PO AT BEDTIME 14 02August 13, 2022 9:04pm March 21, 2025 9:57am [...] Start: 05-02-2013 take 1 tablet by napoleon twice daily Depakote 500 MG Oral Tablet [...] fever 100.4 F or greater, headaches, Starting 12/01/20 at 1842 Start: 03-16-2019 End: 03-16-2019 take [...] (Therapy completed) take 2 tablets by mo uth every eight hours as needed acetaminophen (TYLENOL) 325 MG tablet Take 2 (two) tablets (650 mg total) by mouth every 8 (eight) hours as needed (mild pain) . [facility] needed acetaminophen (Tylenol 8 HOUR) 650 mg ER tablet Take 1 tablet (650 mg) by mouth every 8 hours if needed for mild pain (1 - 3). Do not crush, chew, or split. Active take 2 tablets by [facility] every six hours Tylenol 500 mg oral tablet ; 2 tab(s) orally every 6 hours Quantity: 0 Refills: 0 Ordered: 04-Feb-2023 Toña Hernandezberli Generic Substitution Allowed take 1-2 tablets by mouth every four hours as needed Acetaminophen 325 MG Oral Tablet TAKE 1 TO 2 TABLETS EVERY 4 HOURS NEEDED Quantity: 0 Refills: 0 Ordered: 08-Apr-2021 DO Active take 2 tablets by [facility] every four hours as needed for pain acetaminophen (TYLENOL) 325 MG tablet Take 2 (two) tablets (650 mg total) by mouth every 4 (four) hours as needed for pain . 0 Active Acetaminophen 50 0 MG Oral Tablet Quantity: 0 Refills: 0 Ordered: 07-Aug-2019 DO Active [id number] 200 actuat albuter ol 0.09 mg/actuat metered [...] 5 mg, Oral, Daily, First dose on [place] 03/16/19 at 0915 Start: 02-09-2019 End: 03-15-2025 take 1 tablet by mouth at bedtime Buspirone 10 mg tablet Active 10 mg PO AT BEDTIME June 05, 2021 12:00am Start: 02-09-2019 take 1 tablet by napoleon th every eight hours as needed busPIRone HCl - 5 MG Oral Tablet TAKE 1 TABLET BY MOUTH EVERY 8 HOURS NEEDED Quantity: 90 Refills: 0 Ordered: 17-Mar-2019 DO Start : 09-Feb-2019 Active busPIRone 10 mg oral tablet ; tid Quantity: 0 Refills: 0 Ordered: 04-Feb-2023 Johana Hernandez Generic Substitution Allowed Calcium 600 +D High [...] 0 03/05/2020 Active take 1 tablet by [place] th twice daily Calcium 600+D oral tablet ; 1 tab(s) orally 2 times a day Quantity: 0 Refills: 0 Ordered: 25-Oct-2019 Rosa Shen Generic Substitution Allowed Calcium Carbonate-Vitamin D3 1 EACH tablet (3 sources) Start: 03-05-2020 End: 06-05-2021 Calcium Carbonate-Vitamin [...] End: 30-Jul-2013 Status: Discontinued Generic Substitution Allowed diclofenac sodium 0.01 mg/mg topical gel (20 [...] CHEW. docusate sodium 50 mg / sennosides, longterm 8.6 mg oral tablet (20 sources) Start: [...] on [place] 03/16/19 at 0915 Start: 11-22-2018 End: 12-01-2020 take [...] 2024 12:28pm Start: 12-05-2020 End: 12-03-2020 take 02820 [IU] by mouth every week 50,000 Units, Oral, Weekly, First dose on Wed12/05/20 at 0900 End: 01-01-2024 take 1 capsule by mouth once ergocalciferol (ERGOCALCI FEROL) 1,250 mcg (50,000 unit) capsule Take 1 (one) capsule (50,000 Units total) by mouth once a week Every . 0 01/01/2024 Discontinued take 1 capsule by [facility] every week Drisdol ; 5000 unit(s) orally. tke 1 capsule by mouth every week on Quantity: 0 Refills: 0 Ordered: 08-Sep-2021 Johana Hernandez Status: Other Generic Substitution Allowed take 1 capsule by [facility] every week Drisdol ; 5000 unit(s) orally. [...] 500 mg PO TWICE A DAY 60 3 December 23, 2021 12:32pm August 13, 2022 [...] ALEXIS, Jeanie Start : 23-Nov-2022 Active levonorgestrel 0.108124 mg/hr intrauterine system (20 sources) Progestin, Progestin-containin [...] Start: 06-05-2021 take 1 capsule by [facility] once daily Levothyroxine 25 mcg capsule [...] meet caloric needs. take 1 tablet by napoleon once daily levothyroxine 25 mcg (0.025 mg) [...] 0900 Start: 06-05-2021 take 1 capsule by [facility] every twenty-four hours Loratadine 10 mg capsule Active 10 mg PO Q24H June 05, 2021 12:00am LORazepam 1 mg [...] 2 01/25/2025 Active Start: 10-02-2024 End: 03-15-2025 take 1 tablet by mouth every twelve hours, then take 2 tablets by mouth in the morning Lorazepam 1 mg tablet Active 2 mg PO Q12H October 02, 2024 1:00am 1mg at night and 2mg in the morning Start: 07-18-2024 End: 07-18-2024 take 1 tablet [...] 1 mg PO TWICE A DAY 60 0 December 17, 2021 3:24pm December 23, 2021 12:31pm Epilepsy Myoclonus Epilepsy, unspecified, not intractable, without status epilepticus Myoclonus Start: 05-18-2021 End: 05-20-2021 take 1 tablet by mouth twice daily for dizziness Ativan 1 mg oral tablet ; 1 tab(s) orally 2 times a day Quantity: 6 Refills: 0 Ordered: 18-May-2021 Ronna Ledezmamilagro Mckoy Start: 18-May-2021 End: 20-May-2021 Status: Other Generic [...] mg tablet Discontinued 0 .ROUTE .COMPLEX 0 0 December 23, 2021 12:29pm October 02, 2024 8:31pm Epilepsy Myoclonus Epilepsy, unspecified, not intractable, without status epilepticus Myoclonus 2 tabs PO QAM and 1 tab [...] TIMES DAILY NEEDED as needed for Vertigo 30 0 August 13, 2020 9:45pm June 05, 2021 [...] 2215 Start: 06-05-2021 take 2 capsules by m outh at bedtime as needed Melatonin 5 mg [...] by napoleon th once daily at bedtime Melatonin 3 mg oral tablet ; 1 tab(s) orally once a day (at bedtime) Quantity: 0 Refills: 0 Ordered: 25-Oct-2019 Rosa Shen Status: Other Generic Substitution Allowed Melatonin 3 MG O ral Capsule Refills: 0 DO Active melatonin 3 mg / vitamin b6 10 mg oral tablet (3 sources) Start: 03-05-2020 End: 06-05-2021 take 1 [...] daily Quantity: 21 Refills: 0 Ordered: 08-Dec-2021 Jamie ALEXIS, Jeanie [...] 15 mg, Oral, Nightly, First dose on [place] 03/16/19 at 2100 Start: 07-13-2018 take 1 tablet [...] TO 3 HOURS BEFORE BEDTIME 11 07/21/2016 Active Mucinex Allergy TABS (20 sources) [...] 40 mg, Oral, Daily, First dose on 01/01/24 at 0900, DO NOT CRUSH OR CHEW. Start: 05-19-2018 End: 05-19-2019 take 1 tablet by mouth once daily pantoprazole (PROTONIX) 40 MG tablet Take 1 (one) tablet (40 mg total) by mouth daily. 30 tablet 11 05/19/2018 03/16/2019 Discontinued (Stop Taking at Discharge) [...] 0-10 mL of mixture polyethylene glycol 3350 15734 mg powder for oral solution (2 sources) [...] 01-Sep-2018 Active take 1 tablet by napoleon twice daily potassium chloride SA (K-DUR,KLOR-CON) 20 [...] tablet (1 source) Start: 01-01-20 End: 01-01-20 24 sod phos di, mono-K phos mono (K-PHOS NEUTRAL) tablet 500 mg potassium, sodium phosphates (PHOS-NAK) 280-160-250 mg packet 1 packet (1 source) Start: 12-31-19 24 End: 01-01-20 24 potassium, sodium phosphates (PHOS-NAK) 280-160-250 mg packet 1 packet predniSONE 10 mg oral tablet (3 sources) Corticosteroid End: 02-21-20 18 take 1 tablet by [...] 100 mg PO TWICE A DAY 120 4 August 13, 2022 9:08pm September 26, 2024 12:29pm take 2 tablets by mo uth twice daily primidone (Mysoline) 50 mg tablet Take 2 tablets (100 mg) by mouth 2 times a day. Active take 4 tablets by mo uth every twelve hours primidone (MYSOLINE) 50 MG tablet Take 4 (four) tablets (200 mg total) by mouth every 12 (twelve) hours . Active regadenoson (Lexiscan) injection 0.4 mg (1 source) Start: 10-05-2023 End: 10-05-2023 regadenoson (Lexiscan) injection 0.4 mg sennosides, longterm 8.6 mg oral tablet (2 sources) Start: 12-31-2023 End: 01-01-2024 take 1 tablet by mouth twice daily as needed for constipation 8.6 mg (1 tablet), Oral, 2 times daily PRN, constipation, Starting on Wed12/31/23 at 2215 Start: 03-16-2019 End: 03-16-2019 take 1 tablet by mouth twice daily as needed for constipation 8.6 mg (1 tablet), Oral, 2 times daily PRN, constipation, Starting [facility] 03/16/19 at 0822 sertraline 50 mg oral [...] 0 01/01/2024 Discontinued take 1 capsule by [facility] once daily sertraline 150 mg oral capsule [...] DAILY. Quantity: 90 Refills: 3 Ordered: 07-Jan-2022 Jeanie Ayala MD Active TO TAKE WITH 100 MG FOR [...] DO Active simethicone 80 mg chewable tablet (3 sources) Start: 03-05-2020 End: 06-05-2021 take 1 [...] Intravenous, at 967. 7 mL/hr, Once, On Wed06/04/24 at 2305, For 1 dose Start: 12-02-2020 End: 12-03-2020 sodium chloride 0.9% (NS) Sodium Phosphates (FLEET ZENIA MA RE) (17 sources) End: 03-13-2025 Sodium Phosphates (FLEET ZENIA MA RE) Insert into the rectum as needed. 03/13/2025 Discontinued Sodium Phosphate s (FLEET ENEMA RE) Insert into the rectum as needed. Active sulfamethoxazole 800 mg / trimethoprim 160 mg oral tablet (3 sources) Dihydrofolate Reductase Inhibitor Antibacterial, Sulfonamide Antimicrobial Start: 09-19-2020 End: 06-05-2021 Sulfamethoxazole-Trimethopri m 1 TABLET tablet Discontinued 1 {tbl} PO TWICE A DAY 6 0 September 19, 2020 1:00am June 05, 2021 [...] DIRECTED Quantity: 1 Refills: 0 Ordered: 09-Dec-2021 Jamie ALEXIS, Jeanie Start : 08-Dec-2021 Active lift chair valproate [...] conduct, and disruptive behavior disorders (2 sources) Manipulative behavior; Translations: [Other symptoms and signs [...] Translations: [Thrombocytopenia, unspecified] Onset: 1 12-01-2020 Chronic Congestive heart failure; nonhypertensive (20 sources) Congestive [...] 12-01-2020 Comment on above: FALL Gastrointestinal hemorrhage (3 sources) Hematemesis; Translations: [Hematemesis] 10-04-2024 Episodic Headache; including migraine (20 sources) Migraine; Translations: [Migraine, unspecified, not intractable, without status migrainosus] Onset: 3 Chronic Headache; including migraine (3 sources) Headache; Translations: [Headache] 10-22-2024 Episodic Headache; [...] 08-16-2023 Episodic Other aftercare (1 source) Other terminal system operator (current) drug therapy; Translations: [Other mcfp (current) drug therapy] Onset: 3 Episodic Other aftercare (1 source) Surgical follow-up; Translations: [Encounter for follow-up examination after completed treatment for conditions other than malignant neoplasm] 10-29-2023 Episodic Other aftercare (3 sources) H/O: high risk medication; Translations: [Other terminal system operator (current) drug therapy] 08-26-2021 Episodic Other circulatory disease (20 sources) H/O: heart failure; Translations: [Personal history of other diseases of circulatory system] Episodic Other circulatory disease (20 sources) H/O: hypertension; Translations: [Personal history of other diseases of circulatory system] Episodic Other connective tissue disease (2 sources) Pain in left arm; Translations: [Pain in left arm] Onset: 3 Episodic Other connective tissue disease (3 sources) Pain of left lower leg; Translations: [...] Other hereditary and degenerative nervous system conditions (9 sources) Myoclonus; Translations: [Myoclonus] Onset: 9 03-05-2024 [...] 04-04-2024 Chronic Other inflammatory condition of skin (2 sources) Psoriasis, unspecified; Translations: [Psoriasis, unspecified] Onset: [...] respiration] 05-14-2021 Episodic Other lower respiratory disease (3 sources) Nodule of lung; Translations: [Solitary pulmonary [...] Onset: 3 Episodic Other nervous system disorders (3 sources) H/O: epilepsy; Translations: [Personal history of other diseases of the nervous system and sense organs] 06-04-2024 Episodic Other nervous system disorders (3 sources) Chronic tremor; Translations: [Tremor, unspecified] 03-21-2025 [...] 34 WEEKS ; FEMALE; 4LBS 3OZ; Other screening for suspected conditions (not mental disorders or infectious disease) (20 sources) Platelet count below reference range; Translations: [Cancer cervix - screening done] Onset: 1 12-01-2020 Episodic Other upper respiratory disease (1 source) Mucocele [...] Episodic Comment on above: 02/21/2021- benign; 03/06/2022; [id number]/2021- benign; Residual codes; unclassified (6 sources) Acquired [...] [Palpitations] Onset: 11-12-2022 Resolved: 01-11-2023 01-11-2023 Episodic Conditions associated with dizziness or vertigo (20 sources) Dizziness; Translations: [Dizziness and giddiness] Onset: 11-12-2022 Resolved: 01-11-2023 05-09-2022 Episodic Comment on above: VERTIGO Contraceptive and procreative management (20 sources) Contraception [...] disorders (20 sources) Hypokalemia; Translations: [Hypopotassemia] Onset: 12-01-2020 12-01-2020 Episodic Fracture of lower limb (4 sources) Fracture of distal end of fibula; Translations: [Other fracture of upper and lower end of unspecified fibula, initial encounter for closed fracture] Onset: 11-23-2024 11-12-2024 Episodic Genitourinary symptoms and ill-defined conditions (20 sources) H/O: kidney disease; Translations: [History of chronic renal impairment] Onset: 08-14-2018 07-13-2023 Episodic Comment on above: Cr wsa 1.5 on 1/27/2 015; Inflammatory diseases of female pelvic organs (20 sources) Bacterial vaginosis; Translations: [Vaginitis and vulvovaginitis, unspecified] Onset: 01-11-2023 01-11-2023 Episodic Malaise and fatigue (20 sources) Asthenia; Translations: [Weakness] Onset: 12-01-2020 Resolved: 02-25-2023 12-01-2020 Episodic Mood disorders (20 sources) Mood disorders; Translations: [Depression, unspecified] Onset: 11-26-2022 11-28-2022 Mycoses (20 sources) Dermatophytosis; Translations: [Dermatophytosis of unspecified site] Onset: 01-11-2023 01-11-2023 Episodic Nausea and vomiting (5 sources) Vomiting, unspecified; Translations: [Nausea and vomiting] [...] dermatitis, unspecified; Translations: [Seborrheic dermatitis, unspecified] Onset: 05-31-2024 Episodic Other injuries and conditions due [...] and tophaceous disease] Onset: 06-02-2023 Episodic Other skin disorders (20 sources) Hirsutism; [...] Test Name Value Interpretation Reference Range Facility 36on 05-07-2025 36 Name of Caller: Raoul bowling nurse (Maddie) Contact Reason for Appointment: Regina called in stating patient's transport called and stated they were running 40 min behind. Regina is requesting a sooner appointment then first availability in July. Please call Regina to reschedule patient's appointment. Office Name: [facility] 36on 05-04-2025 36 Attempted to reach patient by phone to confirm appointment scheduled for 05/07/25, no answer left a voicemail message requesting confirmation and advising to call back at [phone] if there are any issues [facility] Emergency Department Summary on 04-23-2025 Emergency Department Summary [facility] Medical Records Department [address] [place] [address] Emergency Department Summary 04/23/25 MR#: [id number] Acct: [id number] Name: REEMA SHAH Rep #: [id number] : 1975 49 From: Fran Naylor DO PCP: Dr. Sree Jamison MD Status:REG ER Location: ED HPI History of Present Illness Chief Complaint: Mental Health Informant: patient, EMS and SNF Narrative Narrative: Patient is a 49-year-old female with past medical history of hypertension borderline personality disorder hypothyroidism. She stays at a halfway. She states that the weekend staff will not get her up and she is on a list that this is supposed to be done daily. She reports that she cannot get up on her own and is extremely upset that they are not following her directives. She states that because of this increased stress she does not want to be at the facility and this is making her want to harm herself. She states that she attempted to harm herself years ago when she lives by herself. She states she does not have a plan at this time. Please note that halfway staff reports that the patient has been very upset and argumentative and combative. The halfway staff reports that she only began saying that she was going to hurt herself because she wanted to leave the facility. [facility] Medical History Borderline personality disorder Long-term use of high-risk medication Systolic heart failure Major depressive disorder Tremor History of FL (myocardial infarction) History of TIA (transient ischemic [...] 1 - 2 puff inhalation Q6H PRN WI N 03/05/20 Unknown History aerosol inhaler Sob /Or Wheezing acetaminophen 325 mg capsule 650 mg PO Q4H PRN fever or pain Unknown History (Tylenol) artifi.tears(hypromello se)(PF) 0.3 2 drp ophthalmic (eye) .Q1HR PRN 06/05/21 Unknown History % eye drops dry eye(s) atorvastatin 20 mg tablet 20 mg PO QHS 06/05/21 Unknown Hist ory buspirone 10 mg tablet 10 mg PO QHS 06/05/21 Unknown Hist ory levothyroxine 25 mcg capsule 25 mcg PO DAILY 06/05/21 Unknown H istory loratadine 10 mg capsule 10 mg PO Q24H 06/05/21 Unknown His tory melatonin 5 mg capsule 10 mg PO [...] amlodipine 5 mg tablet 5 mg PO QHS 11/04/24 Unknown Histo ry allopurinol 100 mg tablet 100 mg PO DAILY 03/21/25 Unknown H istory bisacodyl 10 mg rectal suppository 10 mg WI DAILY PRN constipation 03/21/25 Unknown History cholecalciferol (vitamin D3) 50 2,000 unit PO DAILY 03/21/25 Unkno wn History mcg (2,000 unit) capsule clonidine HCl 0.1 mg tablet 0.1 mg PO Q12H 03/21/25 Unknown Hi story divalproex 250 mg tablet,extended 250 mg PO BID 03/21/25 Unknown Hi story release 24 hr magnesium hydroxide 400 mg/5 mL 30 ml PO DAILY PRN cons (more content not included)... Normal [facility] Absolute lymphocyte countOrd ered By: Lawsoncorky Higgins on 04-04-2025 Lymphocytes Auto (Unsp spec) [#/Vol] 2.18 10*3/uL 0.83-4.51 [facility] Absolute neutrophil countOrd ered [facility] Neutrophils (Bld) [#/Vol] 6.3 10*3/uL 2.0-7.7 [facility] Anion gap in Serum or Plasma Ordered By: Lawsoncorky Higgins on 04-04-2025 Anion gap [Moles/Vol] 13 mmol/L 5- [facility] Automated lymphocyte count a s percentage of total leukocytesOrdered By: Lawsoncorky Higgins on 04-04-2025 Lymphocytes/100 WBC Auto (Unsp spec) 22.8 % - [facility] BUN/creatinine ratioOrdered By: Lawsoncorky Higgins on 04-04-2025 Urea nitrogen/Creatinine [Mass ratio] 17.7 mg/mg - [facility] Basic Metabolic Profile (BMP )on 04-04-2025 BUN/CRE 17.7 RATIO Normal - [facility] Comment on above: Performed By: #### L 500.2500, L100.0100 #### [facility] [address] [place], [address] Calcium [Mass/Vol] 10.0 mg/dL Normal 7.6-11.0 [facility] Comment on above: Performed By: #### L 500.2500, L100.0100 #### [facility] [address] [place], [address] Chloride [Moles/Vol] 99 mmol/L Normal 98-108 [facility] Comment on above: Performed By: #### L 500.2500, L100.0100 #### [facility] [address] [place], [address] CO2 [Moles/Vol] 24.2 mmol/L Normal 21.0-32.0 [facility] Comment on above: Performed By: #### L 500.2500, L100.0100 #### [facility] [address] [place], [address] Creatinine [Mass/Vol] 1.50 mg/dL High 0.70-1.20 [facility] Comment on above: Performed By: #### L 500.2500, L100.0100 #### [facility] [address] [place], [address] ECRCL 39.97 ml/min Low 50-250 [facility] Comment on above: Performed By: #### L 500.2500, L100.0100 #### [facility] [address] [place], [address] GAP 13 Normal 5-15 [facility] Comment on above: Performed By: #### L 500.2500, L100.0100 #### [facility] [address] [place], [address] GFR/1.73 sq M.predicted among non-blacks MDRD (S/P/Bld) [Vol rate/Area] 42 mL/min/{1.73_m2} Low >60 [facility] Comment on above: Result Comment: mL/m in/1.73m2 CKD-EPI Creatinine Equation (2020) Performed By: #### L 500.2500, L100.0100 #### [facility] [address] [place], [address] Glucose [Mass/Vol] 94 mg/dL Normal 70-99 [facility] Comment on above: Performed By: #### L 500.2500, L100.0100 #### [facility] [address] [place], [address] Potassium [Moles/Vol] 5.2 mmol/L High 3.3-5.1 [facility] Comment on above: Result Comment: Hemo lysis present, Results??could be affected. ?? Performed By: #### L 500.2500, L100.0100 #### [facility] [address] [place], [address] Sodium [Moles/Vol] 137 mmol/L Normal 133-145 [facility] Comment on above: Performed By: #### L 500.2500, L100.0100 #### [facility] [address] [place], [address] Urea nitrogen [Mass/Vol] 27 mg/dL High 4-19 [facility] Comment on above: Performed By: #### L 500.2500, L100.0100 #### [facility] [address] [place], [address] Basophil percentageOrdered B y: Lawson Higgins on 04-04-2025 Basophils/100 WBC (Bld) 0.3 % 0-1 [facility] CBC W/Diff, Automatedon 03-18 Absolute Lymph 2.18 X10 3/uL Normal 0.83-4.51 [facility] Comment on above: Performed By: #### L 500.2500, L100.0100 #### [facility] [address] [place], [address] Absolute Neut 6.3 X10 3/uL Normal 2.0-7.7 [facility] Comment on above: Performed By: #### L 500.2500, L100.0100 #### [facility] [address] [place], [address] Basophils/100 WBC (Bld) 0.3 % Normal 0-1 [facility] Comment on above: Performed By: #### L 500.2500, L100.0100 #### [facility] [address] [place], [address] Eosinophils/100 WBC (Bld) 0.4 % Normal 0-5 [facility] Comment on above: Performed By: #### L 500.2500, L100.0100 #### [facility] [address] [place], [address] Erythrocyte distribution width (RBC) [Ratio] 12.8 % Normal 11.6-14.6 [facility] Comment on above: Performed By: #### L 500.2500, L100.0100 #### [facility] [address] [place], [address] Hematocrit (Bld) [Volume fraction] 46.2 % Normal 37-47 [facility] Comment on above: Performed By: #### L 500.2500, L100.0100 #### [facility] [address] [place], [address] Hemoglobin (Bld) [Mass/Vol] 16.0 g/dL High 12.0-15.0 [facility] Comment on above: Performed By: #### L 500.2500, L100.0100 #### [facility] [address] [place], [address] IG% 0.500 Normal 0.0-0.9 [facility] Comment on above: Result Comment: IG% - Immature Granulocytes (promyelocytes, myelocytes and metamyelocytes) > 1% indicates that a LEFT SHIFT is Present. Performed By: #### L 500.2500, L100.0100 #### [facility] [address] [place], [address] Lymphocytes/100 WBC (Bld) 22.8 % Normal 19-41 [facility] Comment on above: Performed By: #### L 500.2500, L100.0100 #### [facility] [address] [place], [address] MCH (RBC) [Entitic mass] 29.9 pg Normal 27.0-32.0 [facility] Comment on above: Performed By: #### L 500.2500, L100.0100 #### [facility] [address] [place], [address] MCHC (RBC) [Mass/Vol] 34.6 g/dL Normal 32-36 [facility] Comment on above: Performed By: #### L 500.2500, L100.0100 #### [facility] [address] [place], [address] MCV (RBC) [Entitic vol] 86.4 fL Normal 81-99 [facility] Comment on above: Performed By: #### L 500.2500, L100.0100 #### [facility] [address] [place], [address] Monocytes/100 WBC (Bld) 10.3 % High 0-10 [facility] Comment on above: Performed By: #### L 500.2500, L100.0100 #### [facility] [address] [place], [address] Neutrophils/100 WBC (Bld) 65.7 % Normal 47-70 [facility] Comment on above: Performed By: #### L 500.2500, L100.0100 #### [facility] [address] [place], [address] Nucleated RBC (Bld) [#/Vol] 0 10*3/uL Normal 0-5 [facility] Comment on above: Performed By: #### L 500.2500, L100.0100 #### [facility] [address] [place], [address] Platelet mean volume (Bld) [Entitic vol] 10.7 fL Normal 6.2-12.0 [facility] Comment on above: Performed By: #### L 500.2500, L100.0100 #### [facility] [address] [place], [address] Platelets (Bld) [#/Vol] 159 10*3/uL Normal 150-450 [facility] Comment on above: Performed By: #### L 500.2500, L100.0100 #### [facility] [address] [place], [address] RBC (Bld) [#/Vol] 5.35 10*6/uL Normal 4.2-5.4 [facility] Comment on above: Performed By: #### L 500.2500, L100.0100 #### [facility] [address] [place], [address] RDW SD 39.6 fl Normal 35.1-43.9 [facility] Comment on above: Performed By: #### L 500.2500, L100.0100 #### [facility] [address] [place], [address] WBC (Bld) [#/Vol] 9.6 10*3/uL Normal 4.4-11.0 [facility] Comment on above: Performed By: #### L 500.2500, L100.0100 #### [facility] [address] [place], [address] Carbon dioxide, total [Moles /volume] in Central venous bloodOrdered By: Lawson Higgins on 04-04-2025 CO2 [Moles/Vol] 24.2 mmol/L 21.0-32.0 [facility] Chloride assayOrdered By: Ug o Higgins on 04-04-2025 Chloride [Moles/Vol] 99 mmol/L 98-108 [facility] Emergency Department Summary on 04-04-2025 Emergency Department Summary [facility] Medical Records Department [address] [place] [address] Emergency Department Summary 04/04/25 MR#: [id number] Acct: [id number] Name: REEMA SHAH Rep #: [id number] : 1975 49 From: Lawson Higgins MD [...] wish to return to nursing facility Location: [place] Current Severity: Mild Maximum Severity: Moderate Worsened by: Unknown Relieved by: Nothing Associated Symptoms Associated Symptoms: Patient with little eye contact. And has tremor. She states that she does Narrative Narrative: patient is a 49-year-old woman. Patient presents from halfway by ambulance for psychiatric eval. Reportedly patient [...] eval. Prior similar symptoms: Yes (Per the jorge social secretary Lori who was asked to see her to help determi) Recent Illness/Hospitalization : No PFSH PFSH Medical History Borderline personality disorder Long-term use of high-risk medication Systolic heart failure Major depressive disorder Tremor History of FL (myocardial infarction) History of TIA (transient ischemic [...] 1 - 2 puff inhalation Q6H PRN WI N 03/05/20 Unknown History aerosol inhaler Sob [...] Histo ry (more content not included)... Normal [facility] Eosinophil percentageOrdered By: Lawson Higgins on 04-04-2025 Eosinophils/100 WBC (Bld) 0.4 % 0-5 [facility] Erythrocyte distribution wid th ratioOrdered By: Lawson Higgins on 04-04-2025 Erythrocyte distribution width (RBC) [Ratio] 12.8 % 11.6-14.6 [facility] Erythrocyte distribution wid th standard deviationOrdered By: Lawson Higgins on 04-04-2025 Erythrocyte distribution width (RBC) [Ratio] 39.6 fl 35.1-43.9 [facility] Foot min 3 Viewson 5 Foot min 3 Views [facility] [address] [place] [address] Foot min 3 Views MR#: [id number] Acct: [id number] Name: REEMA SHAH Rep #: [id number] : 1975 F 49 From: Maxine Morgan MD PCP: Dr. Sree Jamison MD Status: REG ER Study: Foot min 3 Views Date of Exam: 04/04/25 Exam# [id number] Ordering Dr: Lawson Higgins MD PROCEDURE: FOOT MIN 3 VIEWS 04/04/2025 REASON FOR EXAM: INJURY/PAIN TECHNIQUE: FOOT MIN 3 VIEWS COMPARISON: 11/04/2024. FINDINGS: No evidence acute fracture or dislocation. Mild degenerative changes of the foot. The soft tissues are unremarkable. RAD/Foot min 3 Views IMPRESSION: NO ACUTE FRACTURE OR DISLOCATION. Reading Location: [id number] CC: Dr. Sree Jamison MD; Dr. Lawson Higgins MD Mail Processing Clerk: Signed Normal [facility] Glomerular filtration rate ( GFR) estimation/1.73 sq m using serum, plasma, or whole bOrdered By: Lawson Higgins on 04-04-2025 GFR/1.73 sq M.predicted among non-blacks MDRD (S/P/Bld) [Vol rate/Area] 42 mL/min/{1.73_m2} Low >60 [facility] Comment on above: mL/min/1.73m2 CKD-EP I Creatinine Equation (2020) Hematocrit Auto (Bld) [Volum e fraction]Ordered By: Lawson Higgins on 04-04-2025 Hematocrit (Bld) [Volume fraction] 46.2 % 37-47 [facility] Hemoglobin measurementOrdere d By: Lawson Higgins on 04-04-2025 Hemoglobin (Bld) [Mass/Vol] 16.0 g/dL High 12.0-15.0 [facility] Immature granulocytes/100 WB C Auto (Bld)Ordered By: Lawson Higgins on 04-04-2025 Immature granulocytes/100 WBC (Bld) 0.500 % 0.0-0.9 [facility] Comment on above: IG% - Immature Granu locytes (promyelocytes, myelocytes and metamyelocytes) > 1% indicates that a LEFT SHIFT is Present. MCV (mean corpuscular volume ) determinationOrdered By: Lawson Higgins on 04-04-2025 MCV (RBC) [Entitic vol] 86.4 fL 81-99 [facility] Mean corpuscular hemoglobin (MCH) determinationOrdered By: Lawson Higgins on 04-04-2025 MCH (RBC) [Entitic mass] 29.9 pg 27.0-32.0 [facility] Mean corpuscular hemoglobin concentration (MCHC) determinationOrdered By: Lawson Higgins on 04-04-2025 MCHC (RBC) [Mass/Vol] 34.6 g/dL 32-36 [facility] Mean platelet volume determi nationOrdered By: Lawson Higgins on 04-04-2025 Platelet mean volume (Bld) [Entitic vol] 10.7 fL 6.2-12.0 [facility] Monocyte percentageOrdered B y: Lawson Higgins on 04-04-2025 Monocytes/100 WBC (Bld) 10.3 % High 0-10 [facility] Neutrophil percentageOrdered By: Lawson Higgins on 04-04-2025 Neutrophils/100 WBC (Bld) 65.7 % 47-70 [facility] Nucleated red blood cell per centageOrdered By: Lawson Higgins on 04-04-2025 Nucleated RBC/100 WBC (Bld) [Ratio] 0 % 0-5 [facility] Platelet countOrdered By: Kalpana Higgins on 04-04-2025 Platelets (Bld) [#/Vol] 159 10*3/uL 150-450 [facility] Potassium measurement (mass/ volume)Ordered By: Lawson Higgins on 04-04-2025 Potassium (Unsp spec) [Mass/Vol] 5.2 mmol/L High 3.3-5.1 [facility] Comment on above: Hemolysis present, R esults could be affected. RBC Auto (Bld) [#/Vol]Ordere d By: Lawson Higgins on 04-04-2025 RBC (Bld) [#/Vol] 5.35 10*6/uL 4.2-5.4 [facility] Serum creatinine measurement (mass/volume)Ordered By: Lawson Higgins on 04-04-2025 Creatinine [Mass/Vol] 1.50 mg/dL High 0.70-1.20 [facility] Serum glucose measurement (m ass/volume)Ordered By: Lawson Higgins on 04-04-2025 Glucose [Mass/Vol] 94 mg/dL 70-99 [facility] Serum or plasma calcium flores urement (mass/volume)Ordered By: Lawson Higgins on 04-04-2025 Calcium [Mass/Vol] 10.0 mg/dL 7.6-11.0 [facility] Serum or plasma urea nitroge n measurement (mass/volume)Ordered By: Lawson Higgins on 04-04-2025 Urea nitrogen [Mass/Vol] 27 mg/dL High 4-19 [facility] Sodium levelOrdered By: Lawson Higgins on 04-04-2025 Sodium [Moles/Vol] 137 mmol/L 133-145 [facility] White blood cell (WBC) count Ordered By: Lawson Higgins on 04-04-2025 WBC (Bld) [#/Vol] 9.6 10*3/uL 4.4-11.0 [facility] Absolute lymphocyte countOrd ered By: Ian Starr on 03-21-2025 Lymphocytes Auto (Unsp spec) [#/Vol] 1.08 10*3/uL 0.83-4.51 [facility] Absolute neutrophil countOrd ered By: Ian Starr on 03-21-2025 Neutrophils (Bld) [#/Vol] 3.1 10*3/uL 2.0-7.7 [facility] Anion gap in Serum or Plasma Ordered By: Ian Starr on 03-21-2025 Anion gap [Moles/Vol] 12 mmol/L 5-15 [facility] Automated lymphocyte count a s percentage of total leukocytesOrdered By: Ian Starr on 03-21-2025 Lymphocytes/100 WBC Auto (Unsp spec) 23.2 % 19-41 [facility] BUN/creatinine ratioOrdered By: Ian Starr on 03-21-2025 Urea nitrogen/Creatinine [Mass ratio] 23.5 mg/mg High 10-20 [facility] Basic Metabolic Profile (BMP )on 03-21-2025 BUN/CRE 23.5 RATIO High [facility] Comment on above: Performed By: #### L 500.2500, L501.8100, L501.5200, L100.0100 #### [facility] [address] [place], [address] Calcium [Mass/Vol] 9.2 mg/dL Normal 7.6-11.0 [facility] Comment on above: Performed By: #### L 500.2500, L501.8100, L501.5200, L100.0100 #### [facility] [address] [place], [address] Chloride [Moles/Vol] 102 mmol/L Normal 98-108 [facility] Comment on above: Performed By: #### L 500.2500, L501.8100, L501.5200, L100.0100 #### [facility] [address] [place], [address] CO2 [Moles/Vol] 23.8 mmol/L Normal 21.0-32.0 [facility] Comment on above: Performed By: #### L 500.2500, L501.8100, L501.5200, L100.0100 #### [facility] [address] [place], [address] Creatinine [Mass/Vol] 1.39 mg/dL High 0.70-1.20 [facility] Comment on above: Performed By: #### L 500.2500, L501.8100, L501.5200, L100.0100 #### [facility] [address] [place], [address] ECRCL 43.92 ml/min Low 50-250 [facility] Comment on above: Performed By: #### L 500.2500, L501.8100, L501.5200, L100.0100 #### [facility] [address] [place], [address] GAP 12 Normal 5-15 [facility] Comment on above: Performed By: #### L 500.2500, L501.8100, L501.5200, L100.0100 #### [facility] [address] [place], [address] GFR/1.73 sq M.predicted among non-blacks MDRD (S/P/Bld) [Vol rate/Area] 46 mL/min/{1.73_m2} Low >60 [facility] Comment on above: Result Comment: mL/m in/1.73m2 CKD-EPI Creatinine Equation (2020) Performed By: #### L 500.2500, L501.8100, L501.5200, L100.0100 #### [facility] [address] [place], [address] Glucose [Mass/Vol] 93 mg/dL Normal 70-99 [facility] Comment on above: Performed By: #### L 500.2500, L501.8100, L501.5200, L100.0100 #### [facility] [address] [place], [address] Potassium [Moles/Vol] 4.5 mmol/L Normal 3.3-5.1 [facility] Comment on above: Performed By: #### L 500.2500, L501.8100, L501.5200, L100.0100 #### [facility] [address] [place], [address] Sodium [Moles/Vol] 138 mmol/L Normal 133-145 [facility] Comment on above: Performed By: #### L 500.2500, L501.8100, L501.5200, L100.0100 #### [facility] [address] [place], [address] Urea nitrogen [Mass/Vol] 33 mg/dL High 4-19 [facility] Comment on above: Performed By: #### L 500.2500, L501.8100, L501.5200, L100.0100 #### [facility] [address] [place], [address] Basophil percentageOrdered B y: Ian Starr on 03-21-2025 Basophils/100 WBC (Bld) 0.6 % 0-1 [facility] Bilirubin Test strip Ql (U)O rdered By: Ian Starr on 03-21-2025 Bilirubin Ql (U) Negative Negative [facility] CBC W/Diff, Automatedon 06-0 Absolute Lymph 1.08 X10 3/uL Normal 0.83-4.51 [facility] Comment on above: Performed By: #### L 500.2500, L501.8100, L501.5200, L100.0100 #### [facility] [address] [place], [address] Absolute Neut 3.1 X10 3/uL Normal 2.0-7.7 [facility] Comment on above: Performed By: #### L 500.2500, L501.8100, L501.5200, L100.0100 #### [facility] [address] [place], [address] Basophils/100 WBC (Bld) 0.6 % Normal 0-1 [facility] Comment on above: Performed By: #### L 500.2500, L501.8100, L501.5200, L100.0100 #### [facility] [address] [place], [address] Eosinophils/100 WBC (Bld) 0.6 % Normal 0-5 [facility] Comment on above: Performed By: #### L 500.2500, L501.8100, L501.5200, L100.0100 #### [facility] [address] [place], [address] Erythrocyte distribution width (RBC) [Ratio] 12.2 % Normal 11.6-14.6 [facility] Comment on above: Performed By: #### L 500.2500, L501.8100, L501.5200, L100.0100 #### [facility] [address] [place], [address] Hematocrit (Bld) [Volume fraction] 40.8 % Normal 37-47 [facility] Comment on above: Performed By: #### L 500.2500, L501.8100, L501.5200, L100.0100 #### [facility] [address] [place], [address] Hemoglobin (Bld) [Mass/Vol] 14.2 g/dL Normal 12.0-15.0 [facility] Comment on above: Performed By: #### L 500.2500, L501.8100, L501.5200, L100.0100 #### [facility] [address] [place], [address] IG% 0.600 Normal 0.0-0.9 [facility] Comment on above: Result Comment: IG% - Immature Granulocytes (promyelocytes, myelocytes and metamyelocytes) > 1% indicates that a LEFT SHIFT is Present. Performed By: #### L 500.2500, L501.8100, L501.5200, L100.0100 #### [facility] [address] [place], [address] Lymphocytes/100 WBC (Bld) 23.2 % Normal 19-41 [facility] Comment on above: Performed By: #### L 500.2500, L501.8100, L501.5200, L100.0100 #### [facility] [address] [place], [address] MCH (RBC) [Entitic mass] 30.1 pg Normal 27.0-32.0 [facility] Comment on above: Performed By: #### L 500.2500, L501.8100, L501.5200, L100.0100 #### [facility] [address] [place], [address] MCHC (RBC) [Mass/Vol] 34.8 g/dL Normal 32-36 [facility] Comment on above: Performed By: #### L 500.2500, L501.8100, L501.5200, L100.0100 #### [facility] [address] [place], [address] MCV (RBC) [Entitic vol] 86.4 fL Normal 81-99 [facility] Comment on above: Performed By: #### L 500.2500, L501.8100, L501.5200, L100.0100 #### [facility] [address] [place], [address] Monocytes/100 WBC (Bld) 9.0 % Normal 0-10 [facility] Comment on above: Performed By: #### L 500.2500, L501.8100, L501.5200, L100.0100 #### [facility] [address] [place], [address] Neutrophils/100 WBC (Bld) 66.0 % Normal 47-70 [facility] Comment on above: Performed By: #### L 500.2500, L501.8100, L501.5200, L100.0100 #### [facility] [address] [place], [address] Nucleated RBC (Bld) [#/Vol] 0 10*3/uL Normal 0-5 [facility] Comment on above: Performed By: #### L 500.2500, L501.8100, L501.5200, L100.0100 #### [facility] [address] [place], [address] Platelet mean volume (Bld) [Entitic vol] 10.0 fL Normal 6.2-12.0 [facility] Comment on above: Performed By: #### L 500.2500, L501.8100, L501.5200, L100.0100 #### [facility] [address] [place], [address] Platelets (Bld) [#/Vol] 109 10*3/uL Low 150-450 [facility] Comment on above: Performed By: #### L 500.2500, L501.8100, L501.5200, L100.0100 #### [facility] [address] [place], [address] RBC (Bld) [#/Vol] 4.72 10*6/uL Normal 4.2-5.4 [facility] Comment on above: Performed By: #### L 500.2500, L501.8100, L501.5200, L100.0100 #### [facility] [address] [place], [address] RDW SD 38.5 fl Normal 35.1-43.9 [facility] Comment on above: Performed By: #### L 500.2500, L501.8100, L501.5200, L100.0100 #### [facility] [address] [place], [address] WBC (Bld) [#/Vol] 4.7 10*3/uL Normal 4.4-11.0 [facility] Comment on above: Performed By: #### L 500.2500, L501.8100, L501.5200, L100.0100 #### [facility] [address] [facility] [address] [place], [address] Carbon dioxide, total [Moles /volume] in Central venous bloodOrdered By: Ian Starr on 03-21-2025 CO2 [Moles/Vol] 23.8 mmol/L 21.0-32.0 [facility] Chloride assayOrdered By: Kika Starr on 03-21-2025 Chloride [Moles/Vol] 102 mmol/L 98-108 [facility] Emergency Department Summary on 03-21-2025 Emergency Department Summary [facility] Medical Records Department [address] [place] [address] Emergency Department Summary 03/21/25 MR#: [id number] Acct: [id number] Name: REEMA SHAH Rep #: [id number] : 1975 49 From: Ian Starr MD PCP: Dr. Sree Jamison MD Status:[facility] ER Location: ED HPI History of Present Illness Chief Complaint: Seizure Informant: patient Narrative Narrative: 49-year-old female from a halfway currently has seizure activity this morning. The [...] and that has been the case yesterday. [facility] Medical History Borderline personality disorder Long-term use of high-risk medication Systolic heart failure Major depressive disorder Tremor History of FL (myocardial infarction) History of TIA (transient ischemic [...] 1 - 2 puff inhalation Q6H PRN WI N 03/05/20 Unknown History aerosol inhaler Sob [...] bisacodyl 10 mg rectal suppository 10 mg WI DAILY PRN constipation 03/21/25 Unknown History cholecalciferol [...] acetaminophen (From (more content not included)... Normal [facility] Eosinophil percentageOrdered By: Ian Starr on 03-21-2025 Eosinophils/100 WBC (Bld) 0.6 % 0-5 [facility] Erythrocyte distribution wid th ratioOrdered By: Ian Starr on 03-21-2025 Erythrocyte distribution width (RBC) [Ratio] 12.2 % 11.6-14.6 [facility] Erythrocyte distribution wid th standard deviationOrdered By: Ian Starr on 03-21-2025 Erythrocyte distribution width (RBC) [Ratio] 38.5 fl 35.1-43.9 [facility] Glomerular filtration rate ( GFR) estimation/1.73 sq m using serum, plasma, or whole bOrdered By: Ian Starr on 03-21-2025 GFR/1.73 sq M.predicted among non-blacks MDRD (S/P/Bld) [Vol rate/Area] 46 mL/min/{1.73_m2} Low >60 [facility] Comment on above: mL/min/1.73m2 CKD-EP I Creatinine Equation (2020) Hematocrit Auto (Bld) [Volum e fraction]Ordered By: Ian Starr on 03-21-2025 Hematocrit (Bld) [Volume fraction] 40.8 % 37-47 [facility] Hemoglobin measurementOrdere d By: Ian Starr on 03-21-2025 Hemoglobin (Bld) [Mass/Vol] 14.2 g/dL 12.0-15.0 [facility] Hyaline casts LM.LPF (Urine sed) [#/Area]Ordered By: Ian Starr on 03-21-2025 Hyaline casts (Urine sed) [#/Area] 0 /[LPF] 0-5 [facility] Immature granulocytes/100 WB C Auto (Bld)Ordered By: Ian Starr on 03-21-2025 Immature granulocytes/100 WBC (Bld) 0.600 % 0.0-0.9 [facility] Comment on above: IG% - Immature Granu locytes (promyelocytes, myelocytes and metamyelocytes) > 1% indicates that a LEFT SHIFT is Present. Ketones Test strip Ql (U)Ord ered By: Ian Starr on 03-21-2025 Ketones Ql (U) Negative Negative [facility] Lactic Acidon 03-21-2025 Lactate [Moles/Vol] mmol/L Normal 0.0-2.0 [facility] Comment on above: Order Comment: Y Performed By: #### L 500.2500, L100.0100 #### [facility] [address] [place], [place], [address] Lactic acid measurementOrder ed By: Ian Starr on 03-21-2025 Lactate [Moles/Vol] mmol/L 0.0-2.0 [facility] MCV (mean corpuscular volume ) determinationOrdered By: Ian Starr on 03-21-2025 MCV (RBC) [Entitic vol] 86.4 fL 81-99 [facility] Magnesiumon 03-21-2025 Magnesium [Mass/Vol] 2.0 mg/dL Normal 1.5-2.2 [facility] Comment on above: Performed By: #### L 500.2500, L501.8100, L501.5200, L100.0100 #### [facility] [address] [place], [place], [address] Magnesium measurement (mass/ volume)Ordered By: Ian Starr on 03-21-2025 Magnesium (Unsp spec) [Mass/Vol] 2.0 mg/dL 1.5-2.2 [facility] Mean corpuscular hemoglobin (MCH) determinationOrdered By: Ian Starr on 03-21-2025 MCH (RBC) [Entitic mass] 30.1 pg 27.0-32.0 [facility] Mean corpuscular hemoglobin concentration (MCHC) determinationOrdered By: Ian Starr on 03-21-2025 MCHC (RBC) [Mass/Vol] 34.8 g/dL 32-36 [facility] Mean platelet volume determi nationOrdered By: Ian Starr on 03-21-2025 Platelet mean volume (Bld) [Entitic vol] 10.0 fL 6.2-12.0 [facility] Microscopic analysis of urin e for red blood cells (RBC)Ordered By: Ian Starr on 03-21-2025 Microscopic analysis of urine for red blood cells (RBC) 0 SEEN /hpf 0-5 [facility] Monocyte percentageOrdered B y: Ian Starr on 03-21-2025 Monocytes/100 WBC (Bld) 9.0 % 0-10 [facility] Mucus LM Ql (Urine sed)Order ed By: Ian Starr on 03-21-2025 Mucus Ql (Urine sed) 0 SEEN /hpf [facility] Neutrophil percentageOrdered By: Ian Starr on 03-21-2025 Neutrophils/100 WBC (Bld) 66.0 % 47-70 [facility] Nitrite Test strip Ql (U)Ord ered By: Ian Starr on 03-21-2025 Nitrite Ql (U) Negative Negative [facility] Nucleated red blood cell per centageOrdered By: Ian Starr on 03-21-2025 Nucleated RBC/100 WBC (Bld) [Ratio] 0 % 0-5 [facility] Platelet countOrdered By: Kika Starr on 03-21-2025 Platelets (Bld) [#/Vol] 109 10*3/uL Low 150-450 [facility] Potassium measurement (mass/ volume)Ordered By: Ian Starr on 03-21-2025 Potassium (Unsp spec) [Mass/Vol] 4.5 mmol/L 3.3-5.1 [facility] Protein Test strip Ql (U)Ord ered By: Ian Starr on 03-21-2025 Protein Ql (U) 30 mg/dl High Negative [facility] RBC Auto (Bld) [#/Vol]Ordere d By: Ian Starr on 03-21-2025 RBC (Bld) [#/Vol] 4.72 10*6/uL 4.2-5.4 [facility] Serum creatinine measurement (mass/volume)Ordered By: Ian Starr on 03-21-2025 Creatinine [Mass/Vol] 1.39 mg/dL High 0.70-1.20 [facility] Serum glucose measurement (m ass/volume)Ordered By: Ian Starr on 03-21-2025 Glucose [Mass/Vol] 93 mg/dL 70-99 [facility] Serum or plasma calcium flores urement (mass/volume)Ordered By: Ian Starr on 03-21-2025 Calcium [Mass/Vol] 9.2 mg/dL 7.6-11.0 [facility] Serum or plasma urea nitroge n measurement (mass/volume)Ordered By: Ian Starr on 03-21-2025 Urea nitrogen [Mass/Vol] 33 mg/dL High 4-19 [facility] Serum or plasma valproate me asurement (mass/volume)Ordered By: Ian Starr on 03-21-2025 Valproate [Mass/Vol] 24 ug/mL Low 50-100 [facility] Comment on above: Valproic Acid concen trations >100 ug/mL are potentially toxic. Sodium levelOrdered By: Adrian Starr on 03-21-2025 Sodium [Moles/Vol] 138 mmol/L 133-145 [facility] Squamous epithelial cells de tection in urine sediment by light microscopyOrdered By: Ian Starr on 03-21-2025 Epithelial cells.squamous LM Ql (Urine sed) 0-5 SEEN /hpf 5-10 [facility] Urinalysis, Completeon 03-21 CAST,HYALINE 0-5 SEEN Normal 0-5 [facility] Comment on above: Order Comment: AVERY CTOR TO SPECIFY Performed By: #### L 500.2500, L100.0100 #### [facility] [address] [place], [place], [id number] EPI,SQUAMOUS 0-5 SEEN Normal 5-10 [facility] Comment on above: Order Comment: AVERY CTOR TO SPECIFY Performed By: #### L 500.2500, L100.0100 #### [facility] [address] [place], [address] WBC 0-5 SEEN Normal 0-5 [facility] Comment on above: Order Comment: AVERY CTOR TO SPECIFY Performed By: #### L 500.2500, L100.0100 #### [facility] [address] [place], [address] BACTERIA 0 SEEN Normal None Seen [facility] Comment on above: Order Comment: COLLE CTOR TO SPECIFY Performed By: #### L 500.2500, L100.0100 #### [facility] [address] [place], [address] Mucus Ql (Urine sed) 0 SEEN Normal [facility] Comment on above: Order Comment: COLLE CTOR TO SPECIFY Performed By: #### L 500.2500, L100.0100 #### [facility] [address] [place], [address] RBC 0 SEEN Normal 0-5 [facility] Comment on above: Order Comment: AVERY CTOR TO SPECIFY Performed By: #### L 500.2500, L100.0100 #### [facility] [address] [place], [address] Urine clarityOrdered By: Murali Starr on 03-21-2025 Clarity (U) Clear Clear [facility] Urine color determinationOrd ered By: Ian Starr on 03-21-2025 Color (U) Yellow Yellow [facility] Urine glucose detectionOrder ed By: Ian Starr on 03-21-2025 Glucose Ql (U) Normal mg/dl Normal [facility] Urine leukocyte esterase det ection by dipstickOrdered By: Ian Starr on 03-21-2025 Leukocyte esterase Test strip Ql (U) Negative Negative [facility] Urine pHOrdered By: Ian Starr on 03-21-2025 pH (U) 6.0 [pH] 5.0 - 8.0 [facility] Urine sediment bacteria coun t by microscopy (number/high power field)Ordered By: Ian Starr on 03-21-2025 Bacteria LM.HPF (Urine sed) [#/Area] 0 /[HPF] None Seen [facility] Urine specific gravity measu rementOrdered By: Ian Starr on 03-21-2025 Specific gravity (U) [Rel density] 1.015 1.002-1.030 [facility] Urine urobilinogen measureme ntOrdered By: Ian Starr on 03-21-2025 Urobilinogen Ql (U) Normal mg/dl Normal [facility] Valproic Acid (Depakene) Lev woody 03-21-2025 VALPROIC ACID 24 ug/mL Low 50-100 [facility] Comment on above: Result Comment: Valp roic Acid concentrations >100 ug/mL are potentially toxic. Performed By: #### L 500.2500, L501.8100, L501.5200, L100.0100 #### [facility] [address] [place], [place], [id number] White blood cell (WBC) count Ordered By: Ian Starr on 03-21-2025 WBC (Bld) [#/Vol] 4.7 10*3/uL 4.4-11.0 [facility] White blood cell countOrdere d By: Ian Starr on 03-21-2025 White blood cell count 0-5 SEEN /hpf 0-5 [facility] 30on 03-15-2025 30 Problem: Knowledge Deficit Goal: Patient/family/caregive r demonstrates understanding of disease process, treatment plan, medications, and discharge instructions Outcome: Adequate for Discharge Problem: Potential for Compromised Skin Integrity Goal: Skin Integrity is Maintained or Improved Outcome: Adequate for Discharge Problem: Urinary Incontinence Goal: Perineal skin integrity is maintained or improved Outcome: Adequate for Discharge Normal [facility] [id number] 03-15-2025 [id number] Transport requested in [employer]. Awaiting time confirmation. Confirmed pickup time of 2:00PM by transport Sarbari at phone number . Location of facility drop off is [facility]. Facility notified via Ivelisse Contreras notified on secure chat. Normal [facility] [phone] Cont's EEG completed . Care team messaged. DC order /Mar completed. MICHAEL completed. DRILLING ENGINEERING MANAGER tasked to send to transport for 2:00 PM today to return to [facility], [address] Called facility w pick and shovel man time. Normal [facility] COMPREHENSIVE METABOLIC PANE [place] 03-15-2025 Albumin [Mass/Vol] 3.2 g/dL Low 3.5-5.0 [facility] Comment on above: Performed By: #### L [id number] ####Line Driver: CORNELIA BARRAGAN ([phone])[facility] ([facility])[address] [place] [address] ALP [Catalytic activity/Vol] 103 U/L Normal 40-150 [facility] Comment on above: Performed By: #### L [id number] ####Line Driver: CORNELIA BARRAGAN ([phone])[facility] ([facility])[address] [place] [address] ALT [Catalytic activity/Vol] 21 U/L Normal <30 [facility] Comment on above: Performed By: #### L [id number] ####Line Driver: CORNELIA BARRAGAN ([id number])[facility] ([facility])[address] [place] [address] Anion gap [Moles/Vol] 9 mmol/L Normal 3-13 [facility] Comment on above: Performed By: #### L [id number] ####Line Driver: CORNELIA BARRAGAN ([phone])[facility] ([facility])[address] [place] [address] AST [Catalytic activity/Vol] 28 U/L Normal <34 [facility] Comment on above: Performed By: #### L [id number] ####Line Driver: CORNELIA BARRAGAN ([id number])[facility] ([facility])[address] [place] [address] Bilirubin [Mass/Vol] 0.2 mg/dL Normal <1.2 [facility] Comment on above: Performed By: #### L [id number] ####Line Driver: CORNELIA BARRAGAN ([phone])[facility] ([facility])[address] [place] [address] Calcium [Mass/Vol] 8.9 mg/dL Normal 8.4-10.2 [facility] Comment on above: Performed By: #### L [id number] ####Line Driver: CORNELIA BARRAGAN ([phone])[facility] ([facility])[address] [place] [address] Chloride [Moles/Vol] 105 mmol/L Normal 98-107 [facility] Comment on above: Performed By: #### L [id number] ####Line Driver: CORNELIA BARRAGAN ([phone])[facility] ([facility])[address] [place] [address] CO2 [Moles/Vol] 24 mmol/L Normal 22-29 [facility] Comment on above: Performed By: #### L [id number] ####Line Driver: CORNELIA BARRAGAN ([phone])[facility] ([facility])[address] [place] [address] Creatinine [Mass/Vol] 1.28 mg/dL High 0.57-1.11 [facility] Comment on above: Performed By: #### L [id number] ####Line Driver: CORNELIA BARRAGAN ([id number])[facility] ([facility])[address] [place] [address] [place] GLOMERULAR FILTRATION RATE ML/MIN/1.73 SQ M.PREDICTED 50.8 mL/min/1.73m*2 Low >60.0 [facility] Comment on above: Result Comment: Calc ulation based on the Chronic Kidney Disease Epidemiology Collaboration (CKD-EPI) equation refit without adjustment for race Performed By: #### L [id number] ####Line Driver: CORNELIA BARRAGAN ([phone])[facility] [place] [address] [place] Glucose [Mass/Vol] 86 mg/dL Normal 74-100 [facility] Comment on above: Performed By: #### L [id number] ####Line Driver: CORNELIA BARRAGAN ([id number])[facility] ([facility])[address] [place] [address] [place] Potassium [Moles/Vol] 4.9 mmol/L Normal 3.5-5.1 [facility] Comment on above: Result Comment: [facility] potassium values may be up to 0.5 mmol/L lower than serum values. Performed By: #### L [id number] ####Line Driver: CORNELIA BARRAGAN ([phone])[facility] ([facility])[address] [place] [address] Protein [Mass/Vol] 6.5 g/dL Normal 6.4-8.3 [facility] Comment on above: Performed By: #### L [id number] ####Line Driver: CORNELIA BARRAGAN ([phone])[facility] ([facility])[address] [place] [address] Sodium [Moles/Vol] 138 mmol/L Normal 136-145 [facility] Comment on above: Performed By: #### L [id number] ####Line Driver: CORNELIA BARRAGAN ([phone])[facility] ([facility])[address] [place] [address] Urea nitrogen [Mass/Vol] 28 mg/dL High 9-23 [facility] Comment on above: Performed By: #### L [id number] ####Line Driver: CORNELIA BARRAGAN ([phone])[facility])[address] [place] [address] Comprehensive metabolic 1998 panelon 03-15-2025 Albumin [Mass/Vol] 3.2 g/dL Low 3.5 - 5.0 g/dL [facility] ALP [Catalytic activity/Vol] 103 U/L 40 - 150 U/L [facility] ALT [Catalytic activity/Vol] 21 U/L NINF - 30 U/L [facility] Anion gap [Moles/Vol] 9 mmol/L 3 - 13 mmol/L [facility] AST [Catalytic activity/Vol] 28 U/L NINF - 34 U/L [facility] Bilirubin [Mass/Vol] 0.2 mg/dL NINF - 1.2 mg/dL [facility] Calcium [Mass/Vol] 8.9 mg/dL 8.4 - 10. 2 mg/dL [facility] Chloride [Moles/Vol] 105 mmol/L 98 - 10 7 mmol/L [facility] CO2 [Moles/Vol] 24 mmol/L 22 - 29 mmol/L [facility] Creatinine [Mass/Vol] 1.28 mg/dL High 0.57 - 1.11 mg/dL [facility] GFR/1.73 sq M.predicted (S/P/Bld) [Vol rate/Area] 50.8 mL/min Low - PINF [facility] Comment on above: Calculation based on the Chronic Kidney Disease Epidemiology Collaboration (CKD-EPI) equation refit without adjustment for race Glucose [Mass/Vol] 86 mg/dL 74 - 100 mg/dL [facility] Interpretation and review of laboratory results Abnormal [facility] Potassium [Moles/Vol] 4.9 mmol/L 3.5 - 5.1 mmol/L [facility] Comment on above: Plasma potassium haley ues may be up to 0.5 mmol/L lower than serum values. Protein [Mass/Vol] 6.5 g/dL 6.4 - 8.3 g/dL [facility] Sodium [Moles/Vol] 138 mmol/L 136 - 145 mmol/L [facility] Urea nitrogen [Mass/Vol] 28 mg/dL High 9 - 23 mg/dL [facility] Nursing Noteon 03-15-2025 Nursing Note Report called and received by [facility] Progress Noteon 03-15-2025 Progress Note Nutrition rescreen completed. Chart reviewed. Patient to be monitored and followed by the diet occupational therapy technician. [facility] 30on 03-14-2025 30 Problem: Knowledge Deficit Goal: Patient/family/caregive r demonstrates understanding of disease process, treatment plan, medications, and discharge instructions Outcome: Progressing Problem: Potential for Compromised Skin Integrity Goal: Skin Integrity is Maintained or Improved Outcome: Progressing Goal: Nutritional status is improving Outcome: Progressing Problem: Urinary Incontinence Goal: Perineal skin integrity is maintained or improved Outcome: Progressing [facility] 30 Problem: Knowledge Deficit Goal: Patient/family/caregive r demonstrates understanding of disease process, treatment plan, medications, and discharge instructions Outcome: Progressing Problem: Potential for Compromised Skin Integrity Goal: Skin Integrity is Maintained or Improved Outcome: Progressing Goal: Nutritional status is improving Outcome: Progressing Problem: Urinary Incontinence Goal: Perineal skin integrity is maintained or improved Outcome: Progressing [facility] 30 Problem: Knowledge Deficit Goal: Patient/family/caregive r demonstrates understanding of disease process, treatment plan, medications, and discharge instructions 03/14/2025300 by Ruth Topete RN Outcome: Progressing 03/13/20252217 by Ruth Topete RN Outcome: Progressing Problem: Potential for Compromised Skin Integrity Goal: Skin Integrity is Maintained or Improved 03/14/2025300 by Ruth Topete RN Outcome: Progressing 03/13/20252217 by Ruth Topete RN Outcome: Progressing Goal: Nutritional status is improving 03/14/2025300 by Ruth Topete RN Outcome: Progressing 03/13/20252217 by Ruth Topete RN Outcome: Progressing Problem: Urinary Incontinence Goal: Perineal skin integrity is maintained or improved 03/14/2025300 by Ruth Topete RN Outcome: Progressing 03/13/20252217 by Ruth Topete RN Outcome: Progressing Normal [facility] [id number] 03-14-2025 [id number] Pt has Hx of seizure disorder. Was a Direct adm for Cont's EEG. Pt is a resident @ [facility]. Called pt's father, Ko, , for Hx, no answer message left. Called the [facility] [phone], spoke shannon Hedrick. Plan is for DC temitope when EEG completed. WE will need to arrange [place] to follow. Normal [facility] COMPREHENSIVE METABOLIC PANE [place] 03-14-2025 Albumin [Mass/Vol] 3.2 g/dL Low 3.5-5.0 [facility] Comment on above: Performed By: #### L [id number] ####Line Driver: CORNELIA BARRAGAN ([id number])[address] ALP [Catalytic activity/Vol] 124 U/L Normal 40-150 [facility] Comment on above: Performed By: #### L [id number] ####Line Driver: CORNELIA BARRAGAN ([id number])[facility] ([facility])[address] [place] [address] ALT [Catalytic activity/Vol] 24 U/L Normal <30 [facility] Comment on above: Performed By: #### L AB17 ####Line Driver: CORNELIA BARRAGAN ([id number])[facility] ([facility])[address] [place] [address] Anion gap [Moles/Vol] 12 mmol/L Normal 3-13 [facility] Comment on above: Performed By: #### L [id number] ####Line Driver: CORNELIA BARRAGAN ([phone])[facility] ([facility])[address] [place] [address] AST [Catalytic activity/Vol] 31 U/L Normal <34 [facility] Comment on above: Performed By: #### L [id number] ####Line Driver: CORNELIA BARRAGAN ([id number])[facility] ([facility])[address] [place] [address] Bilirubin [Mass/Vol] 0.2 mg/dL Normal <1.2 [facility] Comment on above: Performed By: #### L [id number] ####Line Driver: CORNELIA BARRAGAN ([id number])[facility] ([facility])[address] [place] [address] Calcium [Mass/Vol] 8.7 mg/dL Normal 8.4-10.2 [facility] Comment on above: Performed By: #### L [id number] ####Line Driver: CORNELIA BARRAGAN ([id number])[facility])[address] [place] [address] Chloride [Moles/Vol] 106 mmol/L Normal 98-107 [facility] Comment on above: Performed By: #### L AB17 ####Line Driver: CORNELIA BARRAGAN ([id number])[facility])[address] [place] [address] CO2 [Moles/Vol] 20 mmol/L Low 22-29 [facility] Comment on above: Performed By: #### L AB17 ####Line Driver: CORNELIA BARRAGAN ([id number])[facility])[address] [place] [address] Creatinine [Mass/Vol] 1.47 mg/dL High 0.57-1.11 [facility] Comment on above: Performed By: #### L AB17 ####Line Driver: CORNELIA BARRAGAN ([phone])[facility])[address] [place] [address] [place] GLOMERULAR FILTRATION RATE ML/MIN/1.73 SQ M.PREDICTED 43.0 mL/min/1.73m*2 Low >60.0 [facility] Comment on above: Result Comment: Calc ulation based on the Chronic Kidney Disease Epidemiology Collaboration (CKD-EPI) equation refit without adjustment for race Performed By: #### L [id number] ####Line Driver: CORNELIA BARRAGAN ([phone])[facility] ([facility])[address] [place] [address] Glucose [Mass/Vol] 95 mg/dL Normal 74-100 [facility] Comment on above: Performed By: #### L [id number] ####Line Driver: CORNELIA BARRAGAN ([id number])[facility])[address] [place] [address] Potassium [Moles/Vol] 4.7 mmol/L Normal 3.5-5.1 [facility] Comment on above: Result Comment: [facility] potassium values may be up to 0.5 mmol/L lower than serum values. Performed By: #### L AB17 ####Line Driver: CORNELIA BARRAGAN ([phone])[facility] ([facility])[address] [place] [address] [place] Protein [Mass/Vol] 6.4 g/dL Normal 6.4-8.3 [facility] Comment on above: Performed By: #### L [id number] ####Line Driver: CORNELIA BARRAGAN ([id number])[facility])[address] [place] [address] [place] Sodium [Moles/Vol] 138 mmol/L Normal 136-145 [facility] Comment on above: Performed By: #### L [id number] ####Line Driver: CORNELIA BARRAGAN ([id number])[facility] [place] [address] Urea nitrogen [Mass/Vol] 33 mg/dL High 9- [facility] Comment on above: Performed By: #### L [id number] ####Line Driver: CORNELIA BARRAGAN ([phone])[facility] [place] [address] Comprehensive metabolic 1998 panelon 03-14-2025 Albumin [Mass/Vol] 3.2 g/dL Low 3.5 - 5.0 g/dL [facility] ALP [Catalytic activity/Vol] 124 U/L 40 - 150 U/L [facility] ALT [Catalytic activity/Vol] 24 U/L NINF - 30 U/L [facility] Anion gap [Moles/Vol] 12 mmol/L 3 - 13 mmol/L [facility] AST [Catalytic activity/Vol] 31 U[facility]/L [facility] Bilirubin [Mass/Vol] 0.2 mg/dL NINF - 1.2 mg/dL [facility] Calcium [Mass/Vol] 8.7 mg/dL 8.4 - 10. 2 mg/dL [facility] Chloride [Moles/Vol] 106 mmol/L 98 - 10 7 mmol/L [facility] CO2 [Moles/Vol] 20 mmol/L Low 22 - 29 mmol/L [facility] Creatinine [Mass/Vol] 1.47 mg/dL High 0.57 - 1.11 mg/dL [facility] GFR/1.73 sq M.predicted (S/P/Bld) [Vol rate/Area] 43 mL/min Low - PINF [facility] Comment on above: Calculation based on the Chronic Kidney Disease Epidemiology Collaboration (CKD-EPI) equation refit without adjustment for race Glucose [Mass/Vol] 95 mg/dL 74 - 100 mg/dL [facility] Interpretation and review of laboratory results Abnormal [facility] Potassium [Moles/Vol] 4.7 mmol/L 3.5 - 5.1 mmol/L [facility] Comment on above: Plasma potassium haley ues may be up to 0.5 mmol/L lower than serum values. Protein [Mass/Vol] 6.4 g/dL 6.4 - 8.3 g/dL [facility] Sodium [Moles/Vol] 138 mmol/L 136 - 145 mmol/L [facility] Urea nitrogen [Mass/Vol] 33 mg/dL High 9 - 23 mg/dL [facility] Creatinine (U) [Mass/Vol]Ord ered By: Luis Vázquez on 03-14-2025 CREATININE, URINE 51.1 mg/dL 47.0 - 110 .0 mg/dL [facility] Interpretation and review of laboratory results Normal [facility] Concentration is bas ed on a daily urine output of 1.5 L. [facility] LEVETIRACETAM LEVEL (BKR [facility])on 03-14-2025 [facility] LEVETIRACETAM, IMMUNOASSAY 25.3 mcg/mL Normal 6.0-46.0 [facility] Comment on above: Result Comment: Brivaracetam (Briviact(R), Rikelta(R)) exhibits significant cross-reactivity in the Levetiracetam (Keppra(R), Spritam(R)) immunoassay. If Brivaracetam has been prescribed, order test code 23184 Levetiracetam by LCMSMS. Test Performed by [facility], [facility], [address] [place] [address] Xuan Samuel M.D., Ph.D., Director of Laboratories , CLIA [id number] Performed By: #### L [id number], [id number] ####[facility] ([facility]DB[facility])[address] [place] [address] [facility] Laboratory - Chemistry and C hemistry - challengeon 03-14-2025 Urea nitrogen (U) [Mass/Vol] 471 mg/dL [facility] No Panel Informationon 03-14 CREATININE, URINE 51.1 mg/dL 47.0 - 110 .0 mg/dL [facility] UREA (BUN), URINE, FRACTIONAL EXCRETION 41.1 [facility] Comment on above: Fractional excretion of urea under 35% is consistent with a prerenal cause. UREA (BUN), URINE, TUBULAR REABSORPTION 0.6 [facility] PRIMIDONE AND METABOLITEon 0 03-14-2025 PHENOBARBITAL-ARUP 19.5 ug/mL Normal 15.0-40.0 [facility] Comment on above: Result Comment: Perf ormed By: [facility] [address] [place] [address] Laydown Machine Operator: Ismael Castellon MD, PhD CLIA Number: [id number] Performed By: #### L [id number] ####[facility] ([facility])[address] [place] [address] [facility] PRIMIDONE (MYSOLINE) 8.5 ug/mL Normal 5.0-12.0 [facility] Comment on above: Result Comment: INTE RPRETIVE INFORMATION: Primidone and Metabolite Primidone concentrations greater than 15 ug/mL in conjunction with therapeutic levels of phenobarbital may be associated with toxicity. Phenobarbital 0-2 months Toxic: 40.1 or greater 3 months and older Toxic: 50.1 or greater Performed By: #### L [id number] ####[facility] ([facility])[address] [place] [address] [facility] Progress Noteon 03-14-2025 Progress Note PHYSICAL THERAPY [facility] Name/MRN: Adore Shah ([id number]) Date: 03/14/2025 Pt states she has left foot pain and they are going to do an xray to see if she broke her left foot. She is currently on a continuous EEG. PT held at this time. Fannie Cross, PT Normal [facility] UREA NITROGEN, URINEon 03-14 CREATININE, URINE 51.1 mg/dL Normal 47.0-110.0 [facility] Comment on above: Performed By: #### L [id number], [id number] ####Line Driver: CORNELIA BARRAGAN ([id number])[facility] ([address] Result Comment: LEXII Boyd COMMENTS: Concentration is based on a daily urine output of 1.5 L. UREA (BUN), URINE, FRACTIONAL EXCRETION 41.1 Normal [facility] Comment on above: Result Comment: Frac tional excretion of urea under 35% is consistent with a prerenal cause. Performed By: #### L [id number], [id number] ####Line Driver: CORNELIA BARRAGAN ([id number])[facility] ([facility])[address] [place] [address] UREA (BUN), URINE, TUBULAR REABSORPTION 0.6 Normal [facility] Comment on above: Performed By: #### L [id number], [id number] ####Line Driver: CORNELIA BARRAGAN ([phone])[facility] ([facility])[address] [place] [address] UREA NITROGEN, URINE 471 mg/dL Normal [facility] Comment on above: Performed By: #### L [id number], [id number] ####Line Driver: CORNELIA BARRAGAN ([id number])[facility] ([facility])[address] [place] [address] VALPROIC ACID TOTAL AND FREE (BKR [facility])on 03-14-2025 [facility] VALPROIC ACID 42.5 mg/L Low 50.0-100.0 [facility] Comment on above: Result Comment: Test Performed by [facility], [facility], [address] [place] [address] Xuan Samuel M.D., Ph.D., Director of Laboratories , [facility] [id number] Performed By: #### L [id number], [id number] ####[facility] ([facility])[address] [place] [address] [facility] VALPROIC ACID, FREE 4.4 mg/L Low 4.8-17.3 [facility] Comment on above: Result Comment: Note: Non-linear drug binding properties result in the fraction of Free Valproic Acid increasing as total drug increases. The free fraction may range from 5% to 25% for the total drug range of 30-160 mg/L. Performed By: #### L [id number], [id number] ####[facility] ([facility])[address] [place] [address] [facility] XR FOOT 1-2 VIEWS LEFTon XR FOOT [...] Electronically Signed Date/Time: 03/14/2025 3:[address] [facility] XR Foot - left 2 Viewson No acute osseous abnormality. Report Dictated on Electronically Signed By: Esme Ibanez MD Electronically Signed Date/Time: 03/14/2025 3:10 PM EDT [facility] Patient Name: REEMA SENIOR : 1975 [...] SOFT TISSUES: Unremarkable. No radiopaque foreign body. [facility] Esme Ibanez M D - 03/14/2025 Patient Name: REEMA SHAH : 1975 [facility]#: [id number] Exam Date/Time: 03/14/2025 14:19 Procedure: XR FOOT [...] Electronically Signed Date/Time: 03/14/2025 3:10 PM EDT [facility] Radiology Study observation (narrative) [facility] XR Foot - left 2 ViewsOrdere d By: Esme Ibanez on 03-14-2025 [facility] Work Phone: 30on 03-13-2025 30 Problem: Knowledge Deficit Goal: Patient/family/caregive r demonstrates understanding of disease process, treatment plan, medications, and discharge instructions Outcome: Progressing Problem: Potential for Compromised Skin Integrity Goal: Skin Integrity is Maintained or Improved Outcome: Progressing Goal: Nutritional status is improving Outcome: Progressing Problem: Urinary Incontinence Goal: Perineal skin integrity is maintained or improved Outcome: Progressing Normal [facility] COMPREHENSIVE METABOLIC PANE [place] 03-13-2025 Albumin [Mass/Vol] 3.8 g/dL Normal 3.5-5.0 [facility] Comment on above: Performed By: #### L AB129, LAB17 ####Line Driver: CORNELIA BARRAGAN ([id number])[address] ALP [Catalytic activity/Vol] 143 U/L Normal 40-150 [facility] Comment on above: Performed By: #### L AB129, LAB17 ####Line Driver: CORNELIA BARRAGAN ([id number])[address] ALT [Catalytic activity/Vol] 31 U/L High <30 [facility] Comment on above: Performed By: #### L AB129, LAB17 ####Line Driver: CORNELIA BARRAGAN ([id number])[facility] ([facility])[address] [place] [address] Anion gap [Moles/Vol] 13 mmol/L Normal 3-13 [facility] Comment on above: Performed By: #### L AB129, LAB17 ####Line Driver: CORNELIA BARRAGAN ([id number])[facility] ([facility])[address] [place] [address] AST [Catalytic activity/Vol] 37 U/L High <34 [facility] Comment on above: Performed By: #### L AB129, LAB17 ####Line Driver: CORNELIA BARRAGAN ([id number])[facility] ([facility])[address] [place] [address] Bilirubin [Mass/Vol] 0.3 mg/dL Normal <1.2 [facility] Comment on above: Performed By: #### L AB129, LAB17 ####Line Driver: CORNELIA BARRAGAN ([id number])[facility] ([facility])[address] [place] [address] Calcium [Mass/Vol] 9.9 mg/dL Normal 8.4-10.2 [facility] Comment on above: Performed By: #### L AB129, LAB17 ####Line Driver: CORNELIA BARRAGAN ([id number])[facility] ([facility])[address] [place] [address] [place] Chloride [Moles/Vol] 104 mmol/L Normal 98-107 [facility] Comment on above: Performed By: #### L AB129, LAB17 ####Line Driver: CORNELIA BARRAGAN ([id number])[facility])[address] [place] [address] [place] CO2 [Moles/Vol] 24 mmol/L Normal 22-29 [facility] Comment on above: Performed By: #### L AB129, LAB17 ####Line Driver: CORNELIA BARRAGAN ([id number])[facility] ([facility])[address] [place] [address] Creatinine [Mass/Vol] 1.65 mg/dL High 0.57-1.11 [facility] Comment on above: Performed By: #### L AB129, LAB17 ####Line Driver: CORNELIA BARRAGAN ([id number])[facility])[address] [place] [address] [place] GLOMERULAR FILTRATION RATE ML/MIN/1.73 SQ M.PREDICTED 37.5 mL/min/1.73m*2 Low >60.0 [facility] Comment on above: Result Comment: Calc ulation based on the Chronic Kidney Disease Epidemiology Collaboration (CKD-EPI) equation refit without adjustment for race Performed By: #### L AB129, LAB17 ####Line Driver: CORNELIA BARRAGAN ([id number])[facility])[address] [place] [address] Glucose [Mass/Vol] 116 mg/dL High 74-100 [facility] Comment on above: Performed By: #### L AB129, LAB17 ####Line Driver: CORNELIA BARRAGAN ([id number])[facility])[address] [place] [address] Potassium [Moles/Vol] 4.1 mmol/L Normal 3.5-5.1 [facility] Comment on above: Result Comment: [facility] potassium values may be up to 0.5 mmol/L lower than serum values. Performed By: #### L AB129, LAB17 ####Line Driver: CORNELIA BARRAGAN ([id number])[facility] ([facility])[address] [place] [address] [place] Protein [Mass/Vol] 7.6 g/dL Normal 6.4-8.3 [facility] Comment on above: Performed By: #### L AB129, LAB17 ####Line Driver: CORNELIA BARRAGAN ([id number])[facility])[address] [place] [address] [place] Sodium [Moles/Vol] 141 mmol/L Normal 136-145 [facility] Comment on above: Performed By: #### L AB129, LAB17 ####Line Driver: CORNELIA BARRAGAN ([id number])[facility])[address] [place] [address] Urea nitrogen [Mass/Vol] 38 mg/dL High 9-23 [facility] Comment on above: Performed By: #### L AB129, LAB17 ####Line Driver: CORNELIA BARRAGAN ([id number])[facility] ([facility])[address] [place] [address] Comprehensive metabolic 1998 panelon 03-13-2025 Albumin [Mass/Vol] 3.8 g/dL 3.5 - 5.0 g/dL [facility] ALP [Catalytic activity/Vol] 143 U/L 40 - 150 U/L [facility] ALT [Catalytic activity/Vol] 31 U/L High NINF - 30 U/L [facility] Anion gap [Moles/Vol] 13 mmol/L 3 - 13 mmol/L [facility] AST [Catalytic activity/Vol] 37 U/L High NINF - 34 U/L [facility] Bilirubin [Mass/Vol] 0.3 mg/[facility]/dL [facility] Calcium [Mass/Vol] 9.9 mg/dL 8.4 - 10. 2 mg/dL [facility] Chloride [Moles/Vol] 104 mmol/L 98 - 10 7 mmol/L [facility] CO2 [Moles/Vol] 24 mmol/L 22 - 29 mmol/L [facility] Creatinine [Mass/Vol] 1.65 mg/dL High 0.57 - 1.11 mg/dL [facility] GFR/1.73 sq M.predicted (S/P/Bld) [Vol rate/Area] 37.5 mL/min Low - PINF [facility] Comment on above: Calculation based on the Chronic Kidney Disease Epidemiology Collaboration (CKD-EPI) equation refit without adjustment for race Glucose [Mass/Vol] 116 mg/dL High 74 - 100 mg/dL [facility] Interpretation and review of laboratory results Abnormal [facility] Potassium [Moles/Vol] 4.1 mmol/L 3.5 - 5.1 mmol/L [facility] Comment on above: Plasma potassium haley ues may be up to 0.5 mmol/L lower than serum values. Protein [Mass/Vol] 7.6 g/dL 6.4 - 8.3 g/dL [facility] Sodium [Moles/Vol] 141 mmol/L 136 - 145 mmol/L [facility] Urea nitrogen [Mass/Vol] 38 mg/dL High 9 - 23 mg/dL [facility] Consulton 03-13-2025 Consult Department of Neurological Sciences Section of Epilepsy INITIAL CONSULT NOTE ID: Reema Shah is a 49 y.o. female with history of mood disorder, borderline personality disorder, psoriasis, and epilepsy since Jun 10, 1994 while at the [facility] when she experienced a convulsion. She [...] Sensory: Bilaterally intact to light touch. Coordination: [id number] dysmetria bilaterally. Reflexes: Deferred. Gait: Unable to [...] Geovanny Haley (more content not included)... Normal [facility] Laboratory - Chemistry and C hemistry - challengeon 03-13-2025 TSH Qn 2.3 m[IU]/L [facility] THYROID STIMULATING HORMONEo n 03-13-2025 THYROID STIMULATING HORMONE 2.30 uIU/mL Normal 0.35-4.94 [facility] Comment on above: Performed By: #### L AB129, LAB17 ####Line Driver: CORNELIA BARRAGAN ([id number])[address] TSH Qnon 03-13-2025 Interpretation and review of laboratory results [facility] 36on 03-05-[address] Hernandez made aware of patient rescheduling need. Normal [facility] 36 Name of caller: Sophia Contact phone number: [phone] Relationship to Patient: Maddie mendez [facility] Provider: Dr Hernandez Practice: Neurology Chief Complaint/Reason for Call: Sophia operating room assistant called to advise there is no transportation available for the pt to be admitted for testing on 03/06/25. Sophia was transferred to central scheduling to reschedule. Best time of day caller can be reached: Any Patient advised that office/PCP has 24-48 business hours to return their call: Yes [facility] Office Visiton 02-19-2025 Follow-up visit [id number] Reema Shah 1975 F Date Provider Department Center 02/19/2025 [id number] [facility] None Family History Problem Relation Age [...] Grandmother Paternal Grandfather Daughter Alive Level of Service:59160 [place] OFFICE/OUTPATIENT ESTABLISHED HIGH MDM 40 MIN Reason for Visit and Comments: Follow-up [375969] Seizures [97] - No new seizures to report Normal [facility] Progress Noteon 02-19-2025 Progress Note Department of Neurological Sciences Section of Epilepsy [facility] [address] [facility] [address] Dept: [phone] Dept Loc: [phone] . Visit type: follow-up Reason for Visit: Follow-up and Seizures (No new seizures to report) Objective HPI The patient is a 49 y.o. who lives at [facility] with a PMH significant for mood disorder, borderline personality disorder, psoriasis, and epilepsy since Jun 10, 1994 while at the [facility] when she experienced a convulsion. Previous provider ([facility]) followed her for kidney problems since [...] needed for constipation. (more content not included)... [facility] 36on 01-26-2025 36 Spoke with Tanesha and let her know providers message. [facility] 36 Tell them ok, but I am not a fan of her getting that first dose before she is up for the day. [facility] 36 Name of caller: Mckenzie cari Contact phone number: [phone] Relationship to Patient: Maddie [place] Provider: Dr. Chopra Practice: [facility] [place] Chief Complaint/Reason for Call: Tanesha states that [...] business hours to return their call: Yes [facility] Office Visiton 01-25-2025 Follow-up visit [id number] Reema Shah 1975 F Date Provider Department Center 01/25/2025 [id number]-VDUEXVALENTINA CHOPRA [facility] None Family History Problem Relation Age [...] Grandmother Paternal Grandfather Daughter Alive Level of Service:67695 [place] OFFICE/OUTPATIENT ESTABLISHED LOW MDM 20 MIN Reason for Visit and Comments: Follow-up [880065] Seizures [97] Normal [facility] Progress Noteon 01-25-2025 Progress Note [facility] [address] [place] [address] [facility] [address] Dept: [phone] Dept Loc: [phone] Valentina Chopra MD CHIEF COMPLAINT: Chief Complaint [...] history of Anxiety, Chronic kidney disease, Epilepsy ([facility]), Essential hypertension, Gastro-esophageal reflux disease without esophagitis, Hypokalemia, Hypothyroidism, Obesity, Personal history of urinary (tract) infections, Psoriasis, Repeated falls, and Thrombocytopenia ([facility]). Past Surgical History: has a past surgical [...] Rfl: potassium (more content not included)... Normal [facility] Absolute lymphocyte countOrd ered By: Sree Jamison on 12-31-2024 Lymphocytes Auto (Unsp spec) [#/Vol] 1.62 10*3/uL 0.83-4.51 [facility] Absolute neutrophil countOrd ered By: Sree Jamison on 12-31-2024 Neutrophils (Bld) [#/Vol] 3.0 10*3/uL 2.0-7.7 [facility] Anion gap in Serum or Plasma Ordered By: Sree Jamison on 12-31-2024 Anion gap [Moles/Vol] 12 mmol/L 5-15 [facility] Automated lymphocyte count a s percentage of total leukocytesOrdered By: Sree Jamison on 12-31-2024 Lymphocytes/100 WBC Auto (Unsp spec) 30.1 % 19-41 [facility] BUN/creatinine ratioOrdered By: Sree Jamison on 12-31-2024 Urea nitrogen/Creatinine [Mass ratio] 22.4 mg/mg High 10-20 [facility] Basophil percentageOrdered B y: Sree Jamison on 12-31-2024 Basophils/100 WBC (Bld) 0.4 % 0-1 [facility] Bilirubin, totalOrdered By: Sree Jamison on 12-31-2024 Bilirubin [Mass/Vol] 0.20 mg/dL 0.00-1.30 [facility] CBC W/Diff, Automatedon 12-16 Absolute Lymph 1.62 X10 3/uL Normal 0.83-4.51 [facility] Comment on above: Performed By: #### L 500.2500, L100.0100 #### [facility] [address] [place], [address] Absolute Neut 3.0 X10 3/uL Normal 2.0-7.7 [facility] Comment on above: Performed By: #### L 500.2500, L100.0100 #### [facility] [address] [place], [address] Basophils/100 WBC (Bld) 0.4 % Normal 0-1 [facility] Comment on above: Performed By: #### L 500.2500, L100.0100 #### [facility] [address] [place], [address] Eosinophils/100 WBC (Bld) 2.2 % Normal 0-5 [facility] Comment on above: Performed By: #### L 500.2500, L100.0100 #### [facility] [address] [place], [address] Erythrocyte distribution width (RBC) [Ratio] 12.4 % Normal 11.6-14.6 [facility] Comment on above: Performed By: #### L 500.2500, L100.0100 #### [facility] [address] [place], [address] Hematocrit (Bld) [Volume fraction] 44.3 % Normal 37-47 [facility] Comment on above: Performed By: #### L 500.2500, L100.0100 #### [facility] [address] [place], [address] Hemoglobin (Bld) [Mass/Vol] 15.1 g/dL High 12.0-15.0 [facility] Comment on above: Performed By: #### L 500.2500, L100.0100 #### [facility] [address] [place], [address] IG% 1.100 High 0.0-0.9 [facility] Comment on above: Result Comment: IG% - Immature Granulocytes (promyelocytes, myelocytes and metamyelocytes) > 1% indicates that a LEFT SHIFT is Present. Performed By: #### L 500.2500, L100.0100 #### [facility] [address] [place], [address] Lymphocytes/100 WBC (Bld) 30.1 % Normal 19-41 [facility] Comment on above: Performed By: #### L 500.2500, L100.0100 #### [facility] [address] [place], [address] MCH (RBC) [Entitic mass] 30.6 pg Normal 27.0-32.0 [facility] Comment on above: Performed By: #### L 500.2500, L100.0100 #### [facility] [address] [place], [address] MCHC (RBC) [Mass/Vol] 34.1 g/dL Normal 32-36 [facility] Comment on above: Performed By: #### L 500.2500, L100.0100 #### [facility] [address] [place], [address] MCV (RBC) [Entitic vol] 89.7 fL Normal 81-99 [facility] Comment on above: Performed By: #### L 500.2500, L100.0100 #### [facility] [address] [place], [address] Monocytes/100 WBC (Bld) 10.4 % High 0-10 [facility] Comment on above: Performed By: #### L 500.2500, L100.0100 #### [facility] [address] [place], [address] Neutrophils/100 WBC (Bld) 55.8 % Normal 47-70 [facility] Comment on above: Performed By: #### L 500.2500, L100.0100 #### [facility] [address] [place], [address] Nucleated RBC (Bld) [#/Vol] 0 10*3/uL Normal 0-5 [facility] Comment on above: Performed By: #### L 500.2500, L100.0100 #### [facility] [address] [place], [address] Platelet mean volume (Bld) [Entitic vol] 10.3 fL Normal 6.2-12.0 [facility] Comment on above: Performed By: #### L 500.2500, L100.0100 #### [facility] [address] [place], [address] Platelets (Bld) [#/Vol] 121 10*3/uL Low 150-450 [facility] Comment on above: Performed By: #### L 500.2500, L100.0100 #### [facility] [address] [place], [address] RBC (Bld) [#/Vol] 4.94 10*6/uL Normal 4.2-5.4 [facility] Comment on above: Performed By: #### L 500.2500, L100.0100 #### [facility] [address] [place], [address] RDW SD 40.7 fl Normal 35.1-43.9 [facility] Comment on above: Performed By: #### L 500.2500, L100.0100 #### [facility] [address] [place], [address] WBC (Bld) [#/Vol] 5.4 10*3/uL Normal 4.4-11.0 [facility] Comment on above: Performed By: #### L 500.2500, L100.0100 #### [facility] [address] [place], [address] Carbon dioxide, total [Moles /volume] in Central venous bloodOrdered By: Sree Jamison on 12-31-2024 CO2 [Moles/Vol] 23.9 mmol/L 21.0-32.0 [facility] Chloride assayOrdered By: Franklin Jamison on 12-31-2024 Chloride [Moles/Vol] 103 mmol/L 98-108 [facility] Comprehensive Metabolic Prof ilon 12-31-2024 Albumin [Mass/Vol] 4.0 g/dL Normal 3.5-5.0 [facility] Comment on above: Performed By: #### L 500.2500, L100.0100 #### [facility] [address] [place], [address] Albumin/Globulin [Mass ratio] 1.7 {ratio} Normal 0.9-2.4 [facility] Comment on above: Performed By: #### L 500.2500, L100.0100 #### [facility] [address] [place], [address] ALK PHOS 142 U/L High 35-104 [facility] Comment on above: Performed By: #### L 500.2500, L100.0100 #### [facility] [address] [place], [address] ALT [Catalytic activity/Vol] 23 U/L Normal <=34 [facility] Comment on above: Performed By: #### L 500.2500, L100.0100 #### [facility] [address] [place], [address] AST [Catalytic activity/Vol] 27 U/L Normal <=31 [facility] Comment on above: Performed By: #### L 500.2500, L100.0100 #### [facility] [address] [place], [address] Bilirubin [Mass/Vol] 0.20 mg/dL Normal 0.00-1.30 [facility] Comment on above: Performed By: #### L 500.2500, L100.0100 #### [facility] [address] [place], [address] BUN/CRE 22.4 RATIO High 10-20 [facility] Comment on above: Performed By: #### L 500.2500, L100.0100 #### [facility] [address] [place], [address] Calcium [Mass/Vol] 9.3 mg/dL Normal 7.6-11.0 [facility] Comment on above: Performed By: #### L 500.2500, L100.0100 #### [facility] [address] [place], [address] Chloride [Moles/Vol] 103 mmol/L Normal 98-108 [facility] Comment on above: Performed By: #### L 500.2500, L100.0100 #### [facility] [address] [place], [address] CO2 [Moles/Vol] 23.9 mmol/L Normal 21.0-32.0 [facility] Comment on above: Performed By: #### L 500.2500, L100.0100 #### [facility] [address] [place], [address] Creatinine [Mass/Vol] 1.43 mg/dL High 0.70-1.20 [facility] Comment on above: Performed By: #### L 500.2500, L100.0100 #### [facility] [address] [place], [address] GAP 12 Normal 5-15 [facility] Comment on above: Performed By: #### L 500.2500, L100.0100 #### [facility] [address] [place], [address] GFR/1.73 sq M.predicted among non-blacks MDRD (S/P/Bld) [Vol rate/Area] 44 mL/min/{1.73_m2} Low >60 [facility] Comment on above: Result Comment: mL/m in/1.73m2 CKD-EPI Creatinine Equation (2020) Performed By: #### L 500.2500, L100.0100 #### [facility] [address] [place], [address] Globulin (S) [Mass/Vol] 2.3 g/dL Normal 2.2-4.2 [facility] Comment on above: Performed By: #### L 500.2500, L100.0100 #### [facility] [address] [place], [address] Glucose [Mass/Vol] 95 mg/dL Normal 70-99 [facility] Comment on above: Performed By: #### L 500.2500, L100.0100 #### [facility] [address] [place], [address] Potassium [Moles/Vol] 4.9 mmol/L Normal 3.3-5.1 [facility] Comment on above: Performed By: #### L 500.2500, L100.0100 #### [facility] [address] [place], [address] Sodium [Moles/Vol] 139 mmol/L Normal 133-145 [facility] Comment on above: Performed By: #### L 500.2500, L100.0100 #### [facility] [address] [place], [address] T PROT 6.3 g/dL Normal 5.9-8.4 [facility] Comment on above: Performed By: #### L 500.2500, L100.0100 #### [facility] [address] [place], [address] Urea nitrogen [Mass/Vol] 32 mg/dL High 4-19 [facility] Comment on above: Performed By: #### L 500.2500, L100.0100 #### [facility] [address] [place], [address] Eosinophil percentageOrdered By: Sree Jamison on 12-31-2024 Eosinophils/100 WBC (Bld) 2.2 % 0-5 [facility] Erythrocyte distribution wid th ratioOrdered By: Sree Jamison on 12-31-2024 Erythrocyte distribution width (RBC) [Ratio] 12.4 % 11.6-14.6 [facility] Erythrocyte distribution wid th standard deviationOrdered By: Sree Jamison on 12-31-2024 Erythrocyte distribution width (RBC) [Ratio] 40.7 fl 35.1-43.9 [facility] Glomerular filtration rate ( GFR) estimation/1.73 sq m using serum, plasma, or whole bOrdered By: Sree Jamison on 12-31-2024 GFR/1.73 sq M.predicted among non-blacks MDRD (S/P/Bld) [Vol rate/Area] 44 mL/min/{1.73_m2} Low >60 [facility] Comment on above: mL/min/1.73m2 CKD-EP I Creatinine Equation (2020) Hematocrit Auto (Bld) [Volum e fraction]Ordered By: Sree Jamison on 12-31-2024 Hematocrit (Bld) [Volume fraction] 44.3 % 37-47 [facility] Hemoglobin measurementOrdere d By: Sree Jamison on 12-31-2024 Hemoglobin (Bld) [Mass/Vol] 15.1 g/dL High 12.0-15.0 [facility] Immature granulocytes/100 WB C Auto (Bld)Ordered By: Sree Jamison on 12-31-2024 Immature granulocytes/100 WBC (Bld) 1.100 % High 0.0-0.9 [facility] Comment on above: IG% - Immature Granu locytes (promyelocytes, myelocytes and metamyelocytes) > 1% indicates that a LEFT SHIFT is Present. Laboratory - Chemistry and C hemistry - challengeOrdered By: Sree Jamison on 12-31-2024 AST [Catalytic activity/Vol] 27 U/L <32 [facility] MCV (mean corpuscular volume ) determinationOrdered By: Sree Jamison on 12-31-2024 MCV (RBC) [Entitic vol] 89.7 fL 81-99 [facility] Mean corpuscular hemoglobin (MCH) determinationOrdered By: Sree Jamison on 12-31-2024 MCH (RBC) [Entitic mass] 30.6 pg 27.0-32.0 [facility] Mean corpuscular hemoglobin concentration (MCHC) determinationOrdered By: Sree Jamison on 12-31-2024 MCHC (RBC) [Mass/Vol] 34.1 g/dL 32-36 [facility] Mean platelet volume determi nationOrdered By: Sree Jamison on 12-31-2024 Platelet mean volume (Bld) [Entitic vol] 10.3 fL 6.2-12.0 [facility] Monocyte percentageOrdered B y: Sree Jamison on 12-31-2024 Monocytes/100 WBC (Bld) 10.4 % High 0-10 [facility] Neutrophil percentageOrdered By: Sree Jamison on 12-31-2024 Neutrophils/100 WBC (Bld) 55.8 % 47-70 [facility] Nucleated red blood cell per centageOrdered By: Sree Jamison on 12-31-2024 Nucleated RBC/100 WBC (Bld) [Ratio] 0 % 0-5 [facility] Platelet countOrdered By: Franklin Jamison on 12-31-2024 Platelets (Bld) [#/Vol] 121 10*3/uL Low 150-450 [facility] Potassium measurement (mass/ volume)Ordered By: Sree Jamison on 12-31-2024 Potassium (Unsp spec) [Mass/Vol] 4.9 mmol/L 3.3-5.1 [facility] RBC Auto (Bld) [#/Vol]Ordere d By: Sree Jamison on 12-31-2024 RBC (Bld) [#/Vol] 4.94 10*6/uL 4.2-5.4 [facility] Serum creatinine measurement (mass/volume)Ordered By: Sree Jamison on 12-31-2024 Creatinine [Mass/Vol] 1.43 mg/dL High 0.70-1.20 [facility] Serum globulin measurementOr dered By: Sree Jamison on 12-31-2024 Globulin (S) [Mass/Vol] 2.3 g/dL 2.2-4.2 [facility] Serum glucose measurement (m ass/volume)Ordered By: Sree Jamison on 12-31-2024 Glucose [Mass/Vol] 95 mg/dL 70-99 [facility] Serum or plasma alanine stephens otransferase (ALT) measurementOrdered By: Sree Jamison on 12-31-2024 ALT [Catalytic activity/Vol] 23 U/L <35 [facility] Serum or plasma albumin flores urement (mass/volume)Ordered By: Sree Jamison on 12-31-2024 Albumin [Mass/Vol] 4.0 g/dL 3.5-5.0 [facility] Serum or plasma albumin/glob ulin mass ratioOrdered By: Sree Jamison on 03-16-2025 Albumin/Globulin [Mass ratio] 1.7 {ratio} 0.9-2.4 [facility] Serum or plasma alkaline ary sphatase measurementOrdered By: Sree Jamison on 12-31-2024 ALP [Catalytic activity/Vol] 142 U/L High 35-104 [facility] [facility] Serum or plasma calcium flores urement (mass/volume)Ordered By: Sree Jamison on 12-31-2024 Calcium [Mass/Vol] 9.3 mg/dL 7.6-11.0 [facility] Serum or plasma urea nitroge n measurement (mass/volume)Ordered By: Sree Jamison on 12-31-2024 Urea nitrogen [Mass/Vol] 32 mg/dL High 4-19 [facility] Sodium levelOrdered By: Sree Jamison on 12-31-2024 Sodium [Moles/Vol] 139 mmol/L 133-145 [facility] Total proteinOrdered By: Cammie Jamison on 12-31-2024 Protein [Mass/Vol] 6.3 g/dL 5.9-8.4 [facility] White blood cell (WBC) count Ordered By: Sree Jamison on 12-31-2024 WBC (Bld) [#/Vol] 5.4 10*3/uL 4.4-11.0 [facility] Office Visiton 12-08-2024 Follow-up visit [id number] Reema Shah 1975 F Date Provider Department Center 12/08/2024 [facility] NE None Family History Problem Relation Age [...] Grandmother Paternal Grandfather Daughter Alive Level of Service:70393 [place] OFFICE/OUTPATIENT ESTABLISHED MOD MDM 30 MIN Reason for Visit and Comments: Follow-up [666169] Seizures [97] - Had a seizures last night lasted 10 minutes Normal [facility] Progress Noteon 02-21-2025 Progress Note Department of Neurological Sciences Section of Epilepsy [facility] [address] [facility] [address] Dept: [phone] Dept Loc: [phone] . Visit type: follow-up Reason for Visit: Follow-up and Seizures (Had a seizures last night lasted 10 minutes ) Objective HPI The patient is a 49 y.o. who lives at [facility] with a PMH significant for mood disorder, borderline personality disorder, psoriasis, and epilepsy since Jun 10, 1994 while at the [facility] when she experienced a convulsion. Previous provider ([facility]) followed her for kidney problems since [...] (Mysoline) 50 MG (more content not included)... [facility] 36on 12-07-2024 36 Attempted to call patient about confirming appointment on 12/08/24 no answer left message advised patient to call me back at [phone] [facility] Emergency Department Summary on 11-07-2024 Emergency Department Summary [facility] Medical Records Department [address] [place] [id number] Emergency Department Summary 11/07/24 MR#: [id number] Acct: [id number] Name: REEMA SHAH Rep #: [id number] : 1975 49 From: Ian Starr MD PCP: Dr. Sree Jamison MD Status:REG ER Location: ED HPI History of Present Illness Chief Complaint: Abd Pain Informant: patient and EMS Narrative Narrative: 49-year-old female residing at [facility] states she has been having diffuse periumbilical abdominal pain and constipation since yesterday. She was seen here for it. She was prescribed GoLytely but although she states she drank it, halfway states that she refused to drink it. She apparently was calling 911 repeatedly from the halfway, nursing there reports that they were trying to keep her from doing this but she continued to do it anyway, they told her she did not need to go back to the ER since she was just here, but she was adamant so EMS is transported her back. Nursing from the halfway stated that they called the physician Dr. Jamison who also stated that she did not need to go she just needed to drink the GoLytely that she was refusing to drink. She denies any nausea or vomiting. She denies any problems urinating. She denies any chest pain or shortness of breath. [facility] Medical History (Updated 11/07/24 @ 06:[address] Ian Starr MD) Borderline personality disorder Long-term use of high-risk medication Systolic heart failure Major depressive disorder Tremor History of FL (myocardial infarction) History of TIA (transient ischemic [...] Allergy Unknow (more content not included)... Normal [facility] Abdomen/Pelvis W IV Cont ONL Yon 11-06-2024 Abdomen/Pelvis W IV Cont ONLY [facility] Imaging Services [address] [place] [address] Abdomen/Pelvis W IV Cont ONLY MR#: [id number] Acct: [id number] Name: REEMA SHAH Rep #: [id number] : 1975 F 49 From: Son owusu MD PCP: Dr. Sree Jamison MD Status: REG ER Study: Abdomen/Pelvis W IV Cont ONLY Date of Exam: Exam# [id number] Ordering Dr: [place] [id number] STUDY: CT ABDOMEN AND PELVIS WITH CONTRAST [...] Signed: Son Hernandez MD at 13:36 EST , CC: Dr. Tim Newby MD; Dr. Sree Jamison MD Mail Processing Clerk: Signed Normal [facility] CBC W/Diff, Automatedon 10-19 Absolute Lymph 1.21 X10 3/uL Normal 0.83-4.51 [facility] Comment on above: Performed By: #### L 500.2500, L100.0100 #### [facility] [address] [place], [address] Absolute Neut 7.3 X10 3/uL Normal 2.0-7.7 [facility] Comment on above: Performed By: #### L 500.2500, L100.0100 #### [facility] [address] [place], [address] Basophils/100 WBC (Bld) 0.3 % Normal 0-1 [facility] Comment on above: Performed By: #### L 500.2500, L100.0100 #### [facility] [address] [place], [address] Eosinophils/100 WBC (Bld) 0.5 % Normal 0-5 [facility] Comment on above: Performed By: #### L 500.2500, L100.0100 #### [facility] [address] [place], [address] Erythrocyte distribution width (RBC) [Ratio] 12.1 % Normal 11.6-14.6 [facility] Comment on above: Performed By: #### L 500.2500, L100.0100 #### [facility] [address] [place], [address] Hematocrit (Bld) [Volume fraction] 37.5 % Normal 37-47 [facility] Comment on above: Performed By: #### L 500.2500, L100.0100 #### [facility] [address] [place], [address] Hemoglobin (Bld) [Mass/Vol] 12.8 g/dL Normal 12.0-15.0 [facility] Comment on above: Performed By: #### L 500.2500, L100.0100 #### [facility] [address] [place], [address] IG% 0.600 Normal 0.0-0.9 [facility] Comment on above: Result Comment: IG% - Immature Granulocytes (promyelocytes, myelocytes and metamyelocytes) > 1% indicates that a LEFT SHIFT is Present. Performed By: #### L 500.2500, L100.0100 #### [facility] [address] [place], [address] Lymphocytes/100 WBC (Bld) 13.0 % Low 19-41 [facility] Comment on above: Performed By: #### L 500.2500, L100.0100 #### [facility] [address] [place], [address] MCH (RBC) [Entitic mass] 30.3 pg Normal 27.0-32.0 [facility] Comment on above: Performed By: #### L 500.2500, L100.0100 #### [facility] [address] [place], [address] MCHC (RBC) [Mass/Vol] 34.1 g/dL Normal 32-36 [facility] Comment on above: Performed By: #### L 500.2500, L100.0100 #### [facility] [address] [place], [address] MCV (RBC) [Entitic vol] 88.9 fL Normal 81-99 [facility] Comment on above: Performed By: #### L 500.2500, L100.0100 #### [facility] [address] [place], [address] Monocytes/100 WBC (Bld) 7.3 % Normal 0-10 [facility] Comment on above: Performed By: #### L 500.2500, L100.0100 #### [facility] [address] [place], [address] Neutrophils/100 WBC (Bld) 78.3 % High 47-70 [facility] Comment on above: Performed By: #### L 500.2500, L100.0100 #### [facility] [address] [place], [address] Nucleated RBC (Bld) [#/Vol] 0 10*3/uL Normal 0-5 [facility] Comment on above: Performed By: #### L 500.2500, L100.0100 #### [facility] [address] [place], [address] Platelet mean volume (Bld) [Entitic vol] 10.7 fL Normal 6.2-12.0 [facility] Comment on above: Performed By: #### L 500.2500, L100.0100 #### [facility] [address] [place], [address] Platelets (Bld) [#/Vol] 111 10*3/uL Low 150-450 [facility] Comment on above: Performed By: #### L 500.2500, L100.0100 #### [facility] [address] [place], [address] RBC (Bld) [#/Vol] 4.22 10*6/uL Normal 4.2-5.4 [facility] Comment on above: Performed By: #### L 500.2500, L100.0100 #### [facility] [address] [place], [address] RDW SD 38.5 fl Normal 35.1-43.9 [facility] Comment on above: Performed By: #### L 500.2500, L100.0100 #### [facility] [address] [place], [address] WBC (Bld) [#/Vol] 9.3 10*3/uL Normal 4.4-11.0 [facility] Comment on above: Performed By: #### L 500.2500, L100.0100 #### [facility] [address] [place], [address] Comprehensive Metabolic Prof tnon 11-06-2024 Albumin [Mass/Vol] 3.1 g/dL Low 3.2-5.0 [facility] Comment on above: Performed By: #### L 500.2500, L100.0100 #### [facility] [address] [place], [address] Albumin/Globulin [Mass ratio] 0.9 {ratio} Normal 0.9-2.4 [facility] Comment on above: Performed By: #### L 500.2500, L100.0100 #### [facility] [address] [place], [address] ALK P 128 U/L High 45-117 [facility] Comment on above: Performed By: #### L 500.2500, L100.0100 #### [facility] [address] [place], [address] ALT [Catalytic activity/Vol] 28 U/L Normal 13-56 [facility] Comment on above: Performed By: #### L 500.2500, L100.0100 #### [facility] [address] [place], [address] AST [Catalytic activity/Vol] 27 U/L Normal 15-37 [facility] Comment on above: Performed By: #### L 500.2500, L100.0100 #### [facility] [address] [place], [address] Bilirubin [Mass/Vol] 0.30 mg/dL Normal 0.20-1.00 [facility] Comment on above: Result Comment: For patients on eltrombopag therapy, use of Dimension [place] TBIL is not recommended. Performed By: #### L 500.2500, L100.0100 #### [facility] [address] [place], [address] BUN/CRE 21.1 RATIO High 10-20 [facility] Comment on above: Performed By: #### L 500.2500, L100.0100 #### [facility] [address] [place], [address] CA,Total 8.7 mg/dL Normal 8.5-10.1 [facility] Comment on above: Performed By: #### L 500.2500, L100.0100 #### [facility] [address] [place], [address] Chloride [Moles/Vol] 102 mmol/L Normal 98-107 [facility] Comment on above: Performed By: #### L 500.2500, L100.0100 #### [facility] [address] [place], [address] CO2 [Moles/Vol] 22.0 mmol/L Normal 21.0-32.0 [facility] Comment on above: Performed By: #### L 500.2500, L100.0100 #### [facility] [address] [place], [address] Creatinine [Mass/Vol] 1.23 mg/dL High 0.55-1.02 [facility] Comment on above: Result Comment: The validity of the calculated GFR GFRAA in patients over 70 years has not been determined. Clinical correlation is essential. Performed By: #### L 500.2500, L100.0100 #### [facility] [address] [place], [address] ECRCL 51.06 ml/min Normal [facility] Comment on above: Performed By: #### L 500.2500, L100.0100 #### [facility] [address] [place], [address] EST GFR - AA 59 mL/min Low >60 [facility] Comment on above: Result Comment: Afri can Ivorian GFR Calc Performed By: #### L 500.2500, L100.0100 #### [facility] [address] [place], [address] GAP 6 Normal 5-15 [facility] Comment on above: Performed By: #### L 500.2500, L100.0100 #### [facility] [address] [place], [address] GFR/1.73 sq M.predicted among non-blacks MDRD (S/P/Bld) [Vol rate/Area] 49 mL/min/{1.73_m2} Low >60 [facility] Comment on above: Result Comment: Non- GFR Calc Performed By: #### L 500.2500, L100.0100 #### [facility] [address] [place], [address] Globulin (S) [Mass/Vol] 3.6 g/dL Normal 2.2-4.2 [facility] Comment on above: Performed By: #### L 500.2500, L100.0100 #### [facility] [address] [place], [address] Glucose [Mass/Vol] 100 mg/dL Normal 74-106 [facility] Comment on above: Result Comment: Fast ing Glucose result from 100 to 125 mg/dL suggests IMPAIRED HOMEOSTASIS per A.D.A. criteria. Performed By: #### L 500.2500, L100.0100 #### [facility] [address] [place], [address] Potassium [Moles/Vol] 4.6 mmol/L Normal 3.5-5.1 [facility] Comment on above: Performed By: #### L 500.2500, L100.0100 #### [facility] [address] [place], [address] Sodium [Moles/Vol] 130 mmol/L Low 136-145 [facility] Comment on above: Performed By: #### L 500.2500, L100.0100 #### [facility] [address] [place], [address] T PROT 6.7 g/dL Normal 6.4-8.2 [facility] Comment on above: Performed By: #### L 500.2500, L100.0100 #### [facility] [address] [place], [address] Urea nitrogen [Mass/Vol] 26 mg/dL High 7-18 [facility] Comment on above: Performed By: #### L 500.2500, L100.0100 #### [facility] [address] [place], [address] Emergency Department Summary on 11-06-2024 Emergency Department Summary [facility] Medical Records Department [address] [place] [address] Emergency Department Summary 11/06/24 MR#: [id number] Acct: [id number] Name: REEMA SHAH Rep #: [id number] : 1975 49 From: Tim Newby MD [...] similar symptoms: Yes Recent Illness/Hospitalization : No PFSH PFSH Medical History Long-term use of high-risk medication Systolic heart failure Major depressive disorder Tremor History of FL (myocardial infarction) History of TIA (transient ischemic [...] 11/06/24 11:14 (more content not included)... Normal [facility] Lipaseon 11-06-2024 Lipase [Catalytic activity/Vol] 85 U/L High 13-75 [facility] Comment on above: Result Comment: Redd stovall note: LIPASE revised reference range effective 23. New Lipase methodology. Expected to produce lower values than the previous assay method. NEW Reference Range: 13 - 75 U/L Performed By: #### L 500.2500, L100.0100 #### [facility] [address] [place], [address] ,Serum,hCG Quali.on 11-06-2024 HCG, SERUM QUAL Negative Normal [facility] Comment on above: Performed By: #### L 500.2500, L100.0100 #### [facility] [address] [place], [address] Urinalysis, Completeon 11-06 BACTERIA 1+ /hpf Normal None Seen [facility] Comment on above: Order Comment: AVERY CTOR TO SPECIFY Performed By: #### L 500.2500, L100.0100 #### [facility] [address] [place], [address] EPI,SQUAMOUS 5-10 SEEN Normal 5-10 [facility] Comment on above: Order Comment: AVERY CTOR TO SPECIFY Performed By: #### L 500.2500, L100.0100 #### [facility] [address] [place], [address] WBC 5-10 SEEN Normal 0-5 [facility] Comment on above: Order Comment: AVERY CTOR TO SPECIFY Performed By: #### L 500.2500, L100.0100 #### [facility] [address] [place], [address] Mucus Ql (Urine sed) 0 SEEN Normal [facility] Comment on above: Order Comment: AVERY CTOR TO SPECIFY Performed By: #### L 500.2500, L100.0100 #### [facility] [address] [place], [address] RBC 0 SEEN Normal 0-5 [facility] Comment on above: Order Comment: COLLE CTOR TO SPECIFY Performed By: #### L 500.2500, L100.0100 #### [facility] [address] [place], [place], [address] Ankle min 3 Viewson 11-04-19 Ankle min 3 Views [facility] Imaging Services [address] [place] [address] Ankle min 3 Views MR#: [id number] Acct: [id number] Name: REEMA SHAH Rep #: [id number] : 1975 F 49 From: Fran Valencia MD PCP: Dr. Sree Jamison MD Status: REG ER Study: Ankle min 3 Views Date of Exam: 11/04/24 Exam# [id number] Ordering Dr: Sree Felix [employer]-Bonnie [id number] EXAM: XR LEFT ANKLE COMPLETE, 3 OR [...] CC: GAYLE Felix; Dr. Sree Jamison MD Mail Processing Clerk: Signed Normal [facility] Emergency Department Summary on 11-04-2024 Emergency Department Summary [facility] Medical Records Department [address] [place] [address] Emergency Department Summary 11/04/24 MR#: [id number] Acct: [id number] Name: REEMA SHAH Rep #: [id number] : 1975 49 From: Sree Felix [employer]ITER[employer] CHAIRAnant PCP: Dr. Sree Jamison MD Status:DEP ER Location: ED HPI History of Present Illness Chief Complaint: Lower Extremity Injury Narrative Narrative: Patient is a 49-year-old female who is in assisted living so history hypertension lipidemia epilepsy, myoclonus who presents to the [facility] apartment for a left lower leg injury. She was up in her wheelchair that is motorized, she struck a wall and felt a pop. Patient says she has pain from the knee all the way down to the toes. She denies any other injury. History of Present Illness Informant: patient [facility] Medical History Long-term use of high-risk medication Systolic heart failure Major depressive disorder Tremor History of FL (myocardial infarction) History of TIA (transient ischemic [...] AdvReac Vo (more content not included)... Normal [facility] Foot min 3 Viewson 5 Foot min 3 Views [facility] [address] [place] [address] Foot min 3 Views MR#: [id number] Acct: [id number] Name: REEMA SHAH Rep #: [id number] : 1975 F 49 From: Fran Valencia MD PCP: Dr. Sree Jamison MD Status: REG ER Study: Foot min 3 Views Date of Exam: 11/04/24 Exam# [id number] Ordering Dr: Sree Felix [employer]-C [id number] EXAM: XR LEFT FOOT COMPLETE, 3 OR [...] Signed: Fran Valencia MD at 15:45 EST , CC: GAYLE Felix; Dr. Sree Jamison MD Mail Processing Clerk: Signed Normal [facility] Tibia Fibula 2 Viewson 11-04 Tibia Fibula 2 Views [facility] [address] [place] [address] Tibia Fibula 2 Views MR#: [id number] Acct: [id number] Name: REEMA SHAH Rep #: [id number] : 1975 F 49 From: Fran Valencia MD PCP: Dr. Sree Jamison MD Status: REG ER Study: Tibia Fibula 2 Views Date of Exam: 11/04/24 Exam# [id number] Ordering Dr: Sree Felix [id number] EXAM: XR LEFT TIBIA AND FIBULA, 2 [...] CC: GAYLE Felix; Dr. Sree Jamison MD Mail Processing Clerk: Signed Normal [facility] 36on 10-30-2024 36 We have been unable to reach your patient to schedule their testing. Test Name: EEG Podiatry Doctor Monitoring 2-3 Day Eval 1st Attempt: 10/26 Called patient, no answer, mailbox full unable to leave message. 2nd Attempt: 10/27 Called patient, no answer, mailbox full, unable to leave message 3rd Attempt: 10/30 Called patient, no answer, left voicemail Normal [facility] Office Visiton 10-26-2024 Follow-up visit [id number] Reema Shah Chikis 1975 F Date Provider Department Center 10/26/2024 [id number] NE None Family History Problem Relation Age [...] Grandmother Paternal Grandfather Daughter Alive Level of Service:64[address] [place] OFFICE/OUTPATIENT ESTABLISHED HIGH MDM 40 MIN Reason for Visit and Comments: Follow-up [516610] Seizures [97] - No new seizures to report Normal [facility] Progress Noteon 10-26-2024 Progress Note Department of Neurological Sciences Section of Epilepsy [facility] [address] [facility] [address] Dept: [phone] Dept Loc: [phone] . Visit type: follow-up Reason for Visit: Follow-up and Seizures (No new seizures to report) Objective HPI The patient is a 49 y.o. who lives at [facility] with a PMH significant for mood disorder, borderline personality disorder, psoriasis, and epilepsy since Jun 10, 1994 while at the [facility] when she experienced a convulsion. Previous provider ([facility]) followed her for kidney problems since [...] MG t (more content not included)... Normal [facility] 36on 10-24-2024 36 Left voicemail lars teran patient to give office an return call back to confirm appointment with provider. Office number left for patient to return call if they will like to confirm, cancel or reschedule appointment. Normal [facility] Basic Metabolic Profile (BMP )on 10-14-2024 BUN/CRE 17.8 RATIO Normal - [facility] Comment on above: Performed By: #### L 500.3400, L501.2450, L500.2500, L100.0100 #### [facility] [address] [place], [address] CA,Total 9.2 mg/dL Normal 8.5-10.1 [facility] Comment on above: Performed By: #### L 500.3400, L501.2450, L500.2500, L100.0100 #### [facility] [address] [place], [address] Chloride [Moles/Vol] 102 mmol/L Normal 98-107 [facility] Comment on above: Performed By: #### L 500.3400, L501.2450, L500.2500, L100.0100 #### [facility] [address] [place], [address] CO2 [Moles/Vol] 30.0 mmol/L Normal 21.0-32.0 [facility] Comment on above: Performed By: #### L 500.3400, L501.2450, L500.2500, L100.0100 #### [facility] [address] [place], [address] Creatinine [Mass/Vol] 1.46 mg/dL High 0.55-1.02 [facility] Comment on above: Result Comment: The validity of the calculated GFR GFRAA in patients over 70 years has not been determined. Clinical correlation is essential. Performed By: #### L 500.3400, L501.2450, L500.2500, L100.0100 #### [facility] [address] [place], [address] ECRCL 41.96 ml/min Normal [facility] Comment on above: Performed By: #### L 500.3400, L501.2450, L500.2500, L100.0100 #### [facility] [address] [place], [address] EST GFR - AA 49 mL/min Low >60 [facility] Comment on above: Result Comment: Afri can Ivorian GFR Calc Performed By: #### L 500.3400, L501.2450, L500.2500, L100.0100 #### [facility] [address] [place], [address] GAP 3 Low 5-15 [facility] Comment on above: Performed By: #### L 500.3400, L501.2450, L500.2500, L100.0100 #### [facility] [address] [place], [address] GFR/1.73 sq M.predicted among non-blacks MDRD (S/P/Bld) [Vol rate/Area] 40 mL/min/{1.73_m2} Low >60 [facility] Comment on above: Result Comment: Non- GFR Calc Performed By: #### L 500.3400, L501.2450, L500.2500, L100.0100 #### [facility] [address] [place], [address] Glucose [Mass/Vol] 104 mg/dL Normal 74-106 [facility] Comment on above: Result Comment: Fast ing Glucose result from 100 to 125 mg/dL suggests IMPAIRED HOMEOSTASIS per A.D.A. criteria. Performed By: #### L 500.3400, L501.2450, L500.2500, L100.0100 #### [facility] [address] [place], [address] Potassium [Moles/Vol] 4.7 mmol/L Normal 3.5-5.1 [facility] Comment on above: Performed By: #### L 500.3400, L501.2450, L500.2500, L100.0100 #### [facility] [address] [place], [address] Sodium [Moles/Vol] 135 mmol/L Low 136-145 [facility] Comment on above: Performed By: #### L 500.3400, L501.2450, L500.2500, L100.0100 #### [facility] Laboratory [address] [place], [address] Urea nitrogen [Mass/Vol] 26 mg/dL High 7-18 [facility] Comment on above: Performed By: #### L 500.3400, L501.2450, L500.2500, L100.0100 #### [facility] Laboratory [address] [place], [address] Bedside Glucoseon 10-14-2024 FINGERSTICK GLU 80 mg/dL Normal 74-106 [facility] Comment on above: Result Comment: ULISES DUARTE OF PATIENT CARE PER NURSING PROTOCOL Performed By: #### L 500.2500, L100.0100 #### [facility] [address] [place], [address] CBC W/Diff, Automatedon 09-18 Absolute Lymph 1.21 X10 3/uL Normal 0.83-4.51 [facility] Comment on above: Performed By: #### L 500.3400, L501.2450, L500.2500, L100.0100 #### [facility] [address] [place], [address] Absolute Neut 5.7 X10 3/uL Normal 2.0-7.7 [facility] Comment on above: Performed By: #### L 500.3400, L501.2450, L500.2500, L100.0100 #### [facility] [address] [place], [address] Basophils/100 WBC (Bld) 0.3 % Normal 0-1 [facility] Comment on above: Performed By: #### L 500.3400, L501.2450, L500.2500, L100.0100 #### [facility] [address] [place], [address] Eosinophils/100 WBC (Bld) 1.1 % Normal 0-5 [facility] Comment on above: Performed By: #### L 500.3400, L501.2450, L500.2500, L100.0100 #### [facility] [address] [place], [address] Erythrocyte distribution width (RBC) [Ratio] 12.3 % Normal 11.6-14.6 [facility] Comment on above: Performed By: #### L 500.3400, L501.2450, L500.2500, L100.0100 #### [facility] [address] [place], [address] Hematocrit (Bld) [Volume fraction] 41.0 % Normal 37-47 [facility] Comment on above: Performed By: #### L 500.3400, L501.2450, L500.2500, L100.0100 #### [facility] [address] [place], [address] Hemoglobin (Bld) [Mass/Vol] 14.2 g/dL Normal 12.0-15.0 [facility] Comment on above: Performed By: #### L 500.3400, L501.2450, L500.2500, L100.0100 #### [facility] [address] [place], [address] IG% 0.400 Normal 0.0-0.9 [facility] Comment on above: Result Comment: IG% - Immature Granulocytes (promyelocytes, myelocytes and metamyelocytes) > 1% indicates that a LEFT SHIFT is Present. Performed By: #### L 500.3400, L501.2450, L500.2500, L100.0100 #### [facility] [address] [place], [address] Lymphocytes/100 WBC (Bld) 15.3 % Low 19-41 [facility] Comment on above: Performed By: #### L 500.3400, L501.2450, L500.2500, L100.0100 #### [facility] Laboratory [address] [place], [address] MCH (RBC) [Entitic mass] 31.3 pg Normal 27.0-32.0 [facility] Comment on above: Performed By: #### L 500.3400, L501.2450, L500.2500, L100.0100 #### [facility] [address] [place], [address] MCHC (RBC) [Mass/Vol] 34.6 g/dL Normal 32-36 [facility] Comment on above: Performed By: #### L 500.3400, L501.2450, L500.2500, L100.0100 #### [facility] [address] [place], [address] MCV (RBC) [Entitic vol] 90.3 fL Normal 81-99 [facility] Comment on above: Performed By: #### L 500.3400, L501.2450, L500.2500, L100.0100 #### [facility] [address] [place], [address] Monocytes/100 WBC (Bld) 10.5 % High 0-10 [facility] Comment on above: Performed By: #### L 500.3400, L501.2450, L500.2500, L100.0100 #### [facility] [address] [place], [address] Neutrophils/100 WBC (Bld) 72.4 % High 47-70 [facility] Comment on above: Performed By: #### L 500.3400, L501.2450, L500.2500, L100.0100 #### [facility] [address] [place], [address] Nucleated RBC (Bld) [#/Vol] 0 10*3/uL Normal 0-5 [facility] Comment on above: Performed By: #### L 500.3400, L501.2450, L500.2500, L100.0100 #### [facility] [address] [place], [address] Platelet mean volume (Bld) [Entitic vol] 10.6 fL Normal 6.2-12.0 [facility] Comment on above: Performed By: #### L 500.3400, L501.2450, L500.2500, L100.0100 #### [facility] [address] [place], [address] Platelets (Bld) [#/Vol] 102 10*3/uL Low 150-450 [facility] Comment on above: Performed By: #### L 500.3400, L501.2450, L500.2500, L100.0100 #### [facility] [address] [place], [address] RBC (Bld) [#/Vol] 4.54 10*6/uL Normal 4.2-5.4 [facility] Comment on above: Performed By: #### L 500.3400, L501.2450, L500.2500, L100.0100 #### [facility] [address] [place], [address] RDW SD 40.7 fl Normal 35.1-43.9 [facility] Comment on above: Performed By: #### L 500.3400, L501.2450, L500.2500, L100.0100 #### [facility] [address] [place], [address] WBC (Bld) [#/Vol] 7.9 10*3/uL Normal 4.4-11.0 [facility] Comment on above: Performed By: #### L 500.3400, L501.2450, L500.2500, L100.0100 #### [facility] [address] [place], [address] Chest 1 View (Portable)on Chest 1 View (Portable) [facility] Imaging Services [address] [place] [place] [address] Chest 1 View (Portable) MR#: [id number] Acct: [id number] Name: REEMA SHHA Rep #: [id number] : 1975 F 49 From: Alejandro Sanders MD PCP: Dr. Sree Jamison MD Status: [facility] ER Study: Chest 1 View (Portable) Date of Exam: 10/14/24 Exam# [id number] Ordering Dr: [place] [id number] INDICATION: cough EXAMINATION/TECHNIQUE: X-RAY - XR Chest [...] Dr. Sree Jamison MD; Fran Naylor DO Mail Processing Clerk: Signed Normal [facility] Emergency Department Summary on 10-14-2024 Emergency Department Summary [facility] Medical Records Department [address] [place] [address] Emergency Department Summary 10/14/24 MR#: [id number] Acct: [id number] Name: REEMA SHAH Rep #: [id number] : 1975 49 From: Fran Naylor DO PCP: Dr. Sree Jamison MD Status:[facility] ER Location: ED HPI History of Present Illness Chief Complaint: Nausea/Vomiting Informant: patient Narrative Narrative: Patient is a 49-year-old female with past medical history of hypertension hyperlipidemia and GERD. She states she has had 3 days of nausea vomiting and migraine headache. She denies any fevers or chills. She denies any recent trauma or known sick contact. She states she has been trying nynx-tgw-prphppc medications without symptom improvement and has her symptoms will not resolve she presents for evaluation [facility] Medical History Long-term use of high-risk medication Systolic heart failure Major depressive disorder Tremor History of [place] (myocardial infarction) History of TIA (transient ischemic [...] AdvReac Vomiting (more content not included)... Normal [facility] Lipaseon 10-14-2024 Lipase [Catalytic activity/Vol] 73 U/L Normal 13-75 [facility] Comment on above: Result Comment: Redd stovall note: LIPASE revised reference range effective 23. New Lipase methodology. Expected to produce lower values than the previous assay method. NEW Reference Range: 13 - 75 U/L Performed By: #### L 500.3400, L501.2450, L500.2500, L100.0100 #### [facility] [address] [place], [address] Liver Profileon 10-14-2024 Albumin [Mass/Vol] 3.5 g/dL Normal 3.2-5.0 [facility] Comment on above: Performed By: #### L 500.3400, L501.2450, L500.2500, L100.0100 #### [facility] [address] [place], [address] ALK P 121 U/L High 45-117 [facility] Comment on above: Performed By: #### L 500.3400, L501.2450, L500.2500, L100.0100 #### [facility] [address] [place], [address] ALT [Catalytic activity/Vol] 26 U/L Normal 13-56 [facility] Comment on above: Performed By: #### L 500.3400, L501.2450, L500.2500, L100.0100 #### [facility] [address] [place], [address] AST [Catalytic activity/Vol] 19 U/L Normal 15-37 [facility] Comment on above: Performed By: #### L 500.3400, L501.2450, L500.2500, L100.0100 #### [facility] [address] [place], [address] Bilirubin [Mass/Vol] 0.40 mg/dL Normal 0.20-1.00 [facility] Comment on above: Result Comment: For patients on eltrombopag therapy, use of Dimension [place] TBIL is not recommended. Performed By: #### L 500.3400, L501.2450, L500.2500, L100.0100 #### [facility] [address] [place], [address] Bilirubin.direct [Mass/Vol] 0.12 mg/dL Normal 0.00-0.30 [facility] Comment on above: Performed By: #### L 500.3400, L501.2450, L500.2500, L100.0100 #### [facility] [address] [place], [address] Globulin (S) [Mass/Vol] 3.8 g/dL Normal 2.2-4.2 [facility] Comment on above: Performed By: #### L 500.3400, L501.2450, L500.2500, L100.0100 #### [facility] [address] [place], [address] T PROT 7.3 g/dL Normal 6.4-8.2 [facility] Comment on above: Performed By: #### L 500.3400, L501.2450, L500.2500, L100.0100 #### [facility] [address] [place], [address] M100.678on 10-14-2024 M100.678 Pending SARS-CoV-2 (COVID 19) Negative INFLUENZA A Negative INFLUENZA B Negative RSV PCR Negative Normal [facility] Comment on above: Performed By: #### L 500.2500, L501.8100, L501.5200, L100.0100 #### [facility] [address] [place], [address] Urinalysis, Completeon 10-14 BACTERIA 0 SEEN Normal None Seen [facility] Comment on above: Order Comment: COLLE CTOR TO SPECIFY Performed By: #### L 500.2500, L501.8100, L501.5200, L100.0100 #### [facility] [address] [place], [address] EPI,SQUAMOUS 0 SEEN Normal 5-10 [facility] Comment on above: Order Comment: COLLE CTOR TO SPECIFY Performed By: #### L 500.2500, L501.8100, L501.5200, L100.0100 #### [facility] Laboratory [address] [place], [address] Mucus Ql (Urine sed) 0 SEEN Normal [facility] Comment on above: Order Comment: AVERY CTOR TO SPECIFY Performed By: #### L 500.2500, L501.8100, L501.5200, L100.0100 #### [facility] [address] [place], [address] RBC 0 SEEN Normal 0-5 [facility] Comment on above: Order Comment: COLLE CTOR TO SPECIFY Performed By: #### L 500.2500, L501.8100, L501.5200, L100.0100 #### [facility] Laboratory [address] [place], [address] WBC 0 SEEN Normal 0-5 [facility] Comment on above: Order Comment: COLLE CTOR TO SPECIFY Performed By: #### L 500.2500, L501.8100, L501.5200, L100.0100 #### [facility] Laboratory [address] [place], [address] Emergency Department Summary on 10-02-2024 Emergency Department Summary [facility] Medical Records Department [address] [place] [address] Emergency Department Summary 10/02/24 MR#: [id number] Acct: [id number] Name: REEMA SHAH Rep #: [id number] : 1975 49 From: Geovanny Arndt DO [...] for Parasthesia, Weakness or Loss of Funtion [facility] Medical History Long-term use of high-risk medication Systolic heart failure Major depressive disorder Tremor History of [place] (myocardial infarction) History of TIA (transient ischemic [...] 19:16 erythromycin (more content not included)... Normal [facility] Venous Duplex Imag/Limited/U nion 10-02-2024 Venous Duplex Imag/Limited/Uni [facility] Imaging Services [address] [place] [address] Venous Duplex Imag/Limited/Uni MR#: [id number] Acct: [id number] Name: REEMA SHAH Rep #: [id number] : 1975 F 49 From: Howard Chicas DO PCP: Dr. Sree Jamison MD Status: [facility] Study: Venous Duplex Imag/Limited/Uni Date of Exam: 12/03/23 Exam# [id number] Ordering Dr: [place] [id number] INDICATION: RT LEG PAIN EXAMINATION: Ultrasound US [...] 20:41 EST Reading Location ID and State: [facility] / [place] Tel [phone], Service support , CC: Dr. Geovanny Arndt DO; Dr. Sree Jamison MD Mail Processing Clerk: Signed Normal [facility] 12 Lead EKGon 09-26-2024 12 Lead EKG [facility] Cardiovascular Services [address] [place] [address] 12 Lead EKG 09/26/24 1223 MR#: [id number] Acct: [id number] Name: REEMA SHAH Rep #: [id number] : 1975 49 From: Nato Ross MD [...] Normal sinus rhythm Normal ECG Confirmed by NATO ROSS MD ([id number]), editor news VIVI VILLARREAL ([id number]) on 09/27/2024 12:38:46 PM Referred By: Confirmed By: NATO ROSS MD 09/27/24 1238 Date Nato Ross MD CC: Dr. Sree Jamison MD; Dr. Georges Kelley DO Signed [facility] Abdomen/Pelvis W IV Cont ONL Yon 09-26-2024 Abdomen/Pelvis W IV Cont ONLY [facility] Imaging Services [address] [address] Abdomen/Pelvis W IV Cont ONLY MR#: [id number] Acct: [id number] Name: REEMA SHAH Rep #: [id number] : 1975 F 49 From: Son owusu MD PCP: Dr. Sree Jamison MD Status: [facility] ER Study: Abdomen/Pelvis W IV Cont ONLY Date of Exam: Exam# [id number] Ordering Dr: Georges Kelley DO ADDENDUM by Dr. Son Hernandez MD on 10/05/24 at 08 ==== ADDENDUM ==== [id number] ADDENDUM report for billing purposes. Six-month follow-up CT scan of the chest recommended for follow-up and a 7 mm noncalcified nodule in the peripheral lateral aspect of the right lower lobe. Electronically Signed: Son Hernandez MD at 8:28 EST Reading Location ID and State: [address] [place] [address] , Service support , 10/05/24827 Date cc: Dr. Sree Jamison MD; Dr. Georges Kelley, DO * Signed ADDENDUM by Dr. Son Hernandez MD on 10/05/[address]/Abdomen/Pelvis W IV Cont ONLY IMPRESSION: undefined 10/05/2435 Date cc: Dr. Sree Jamison MD; Dr. Georges Kelley DO * Signed [id number] STUDY: CT ABDOMEN AND PELVIS WITH CONTRAST [...] Electronically Signed: Son Hernandez MD at 13:09 EST , CC: Dr. Sree Jamison MD; Dr. Georges Kelley DO Mail Processing Clerk: Signed Normal [facility] Brain/Head without Contrasto n 09-26-2024 Brain/Head without Contrast [facility] Imaging Services [address] [place] [address] Brain/Head without Contrast MR#: [id number] Acct: [id number] Name: REEMA SHAH Rep #: [id number] : 1975 F 49 From: Son owusu MD PCP: Dr. Sree Jamison MD Status: REG ER Study: Brain/Head without Contrast Date of Exam: 09/17 Exam# [id number] Ordering Dr: [place] [id number] STUDY: CT BRAIN WITHOUT CONTRAST REASON FOR [...] 13:03 EST Reading Location ID and State: [facility] / [place] , Service support , CC: Dr. Sree Jamison MD; Dr. Georges Kelley DO Mail Processing Clerk: Signed Normal [facility] CBC W/Diff, Automatedon 12- 0-2023 Absolute Lymph 1.31 X10 3/uL Normal 0.83-4.51 [facility] Comment on above: Performed By: #### L 500.2500, L501.8100, L501.5200, L100.0100 #### [facility] Laboratory [address] [place], [address] Absolute Neut 3.2 X10 3/uL Normal 2.0-7.7 [facility] Comment on above: Performed By: #### L 500.2500, L501.8100, L501.5200, L100.0100 #### [facility] Laboratory [address] [place], [address] Basophils/100 WBC (Bld) 0.4 % Normal 0-1 [facility] Comment on above: Performed By: #### L 500.2500, L501.8100, L501.5200, L100.0100 #### [facility] Laboratory [address] [place], [address] Eosinophils/100 WBC (Bld) 1.9 % Normal 0-5 [facility] Comment on above: Performed By: #### L 500.2500, L501.8100, L501.5200, L100.0100 #### [facility] Laboratory [address] [place], [address] Erythrocyte distribution width (RBC) [Ratio] 12.6 % Normal 11.6-14.6 [facility] Comment on above: Performed By: #### L 500.2500, L501.8100, L501.5200, L100.0100 #### [facility] Laboratory [address] [place], [address] Hematocrit (Bld) [Volume fraction] 40.3 % Normal 37-47 [facility] Comment on above: Performed By: #### L 500.2500, L501.8100, L501.5200, L100.0100 #### [facility] [address] [place], [address] Hemoglobin (Bld) [Mass/Vol] 13.3 g/dL Normal 12.0-15.0 [facility] Comment on above: Performed By: #### L 500.2500, L501.8100, L501.5200, L100.0100 #### [facility] [address] [facility] [address] [place], [address] IG% 0.600 Normal 0.0-0.9 [facility] Comment on above: Result Comment: IG% - Immature Granulocytes (promyelocytes, myelocytes and metamyelocytes) > 1% indicates that a LEFT SHIFT is Present. Performed By: #### L 500.2500, L501.8100, L501.5200, L100.0100 #### [facility] [address] [place], [address] Lymphocytes/100 WBC (Bld) 25.5 % Normal 19-41 [facility] Comment on above: Performed By: #### L 500.2500, L501.8100, L501.5200, L100.0100 #### [facility] [address] [place], [address] MCH (RBC) [Entitic mass] 30.3 pg Normal 27.0-32.0 [facility] Comment on above: Performed By: #### L 500.2500, L501.8100, L501.5200, L100.0100 #### [facility] [address] [place], [address] MCHC (RBC) [Mass/Vol] 33.0 g/dL Normal 32-36 [facility] Comment on above: Performed By: #### L 500.2500, L501.8100, L501.5200, L100.0100 #### [facility] [address] [place], [address] MCV (RBC) [Entitic vol] 91.8 fL Normal 81-99 [facility] Comment on above: Performed By: #### L 500.2500, L501.8100, L501.5200, L100.0100 #### [facility] [address] [place], [address] Monocytes/100 WBC (Bld) 8.6 % Normal 0-10 [facility] Comment on above: Performed By: #### L 500.2500, L501.8100, L501.5200, L100.0100 #### [facility] [address] [place], [address] Neutrophils/100 WBC (Bld) 63.0 % Normal 47-70 [facility] Comment on above: Performed By: #### L 500.2500, L501.8100, L501.5200, L100.0100 #### [facility] [address] [place], [address] Nucleated RBC (Bld) [#/Vol] 0 10*3/uL Normal 0-5 [facility] Comment on above: Performed By: #### L 500.2500, L501.8100, L501.5200, L100.0100 #### [facility] [address] [place], [address] Platelet mean volume (Bld) [Entitic vol] 10.6 fL Normal 6.2-12.0 [facility] Comment on above: Performed By: #### L 500.2500, L501.8100, L501.5200, L100.0100 #### [facility] [address] [place], [address] Platelets (Bld) [#/Vol] 103 10*3/uL Low 150-450 [facility] Comment on above: Performed By: #### L 500.2500, L501.8100, L501.5200, L100.0100 #### [facility] [address] [place], [address] RBC (Bld) [#/Vol] 4.39 10*6/uL Normal 4.2-5.4 [facility] Comment on above: Performed By: #### L 500.2500, L501.8100, L501.5200, L100.0100 #### [facility] [address] [place], [address] RDW SD 41.6 fl Normal 35.1-43.9 [facility] Comment on above: Performed By: #### L 500.2500, L501.8100, L501.5200, L100.0100 #### [facility] [address] [place], [address] WBC (Bld) [#/Vol] 5.1 10*3/uL Normal 4.4-11.0 [facility] Comment on above: Performed By: #### L 500.2500, L501.8100, L501.5200, L100.0100 #### [facility] [address] [place], [address] Comprehensive Metabolic Prof [facility] 09-26-2024 Albumin [Mass/Vol] 3.2 g/dL Normal 3.2-5.0 [facility] Comment on above: Performed By: #### L 500.2500, L501.8100, L501.5200, L100.0100 #### [facility] [address] [place], [address] Albumin/Globulin [Mass ratio] 1.0 {ratio} Normal 0.9-2.4 [facility] Comment on above: Performed By: #### L 500.2500, L501.8100, L501.5200, L100.0100 #### [facility] [address] [place], [address] ALK P 113 U/L Normal 45-117 [facility] Comment on above: Performed By: #### L 500.2500, L501.8100, L501.5200, L100.0100 #### [facility] [address] [place], [address] ALT [Catalytic activity/Vol] 36 U/L Normal 13-56 [facility] Comment on above: Performed By: #### L 500.2500, L501.8100, L501.5200, L100.0100 #### [facility] [address] [place], [address] AST [Catalytic activity/Vol] 28 U/L Normal 15-37 [facility] Comment on above: Performed By: #### L 500.2500, L501.8100, L501.5200, L100.0100 #### [facility] [address] [place], [address] Bilirubin [Mass/Vol] 0.30 mg/dL Normal 0.20-1.00 [facility] Comment on above: Result Comment: For patients on eltrombopag therapy, use of Dimension [place] TBIL is not recommended. Performed By: #### L 500.2500, L501.8100, L501.5200, L100.0100 #### [facility] [address] [place], [address] BUN/CRE 20.5 RATIO High 10-20 [facility] Comment on above: Performed By: #### L 500.2500, L501.8100, L501.5200, L100.0100 #### [facility] [address] [place], [address] CA,Total 9.3 mg/dL Normal 8.5-10.1 [facility] Comment on above: Performed By: #### L 500.2500, L501.8100, L501.5200, L100.0100 #### [facility] [address] [place], [address] Chloride [Moles/Vol] 108 mmol/L High 98-107 [facility] Comment on above: Performed By: #### L 500.2500, L501.8100, L501.5200, L100.0100 #### [facility] [address] [place], [address] CO2 [Moles/Vol] 24.0 mmol/L Normal 21.0-32.0 [facility] Comment on above: Performed By: #### L 500.2500, L501.8100, L501.5200, L100.0100 #### [facility] [address] [place], [address] Creatinine [Mass/Vol] 1.32 mg/dL High 0.55-1.02 [facility] Comment on above: Result Comment: The validity of the calculated GFR GFRAA in patients over 70 years has not been determined. Clinical correlation is essential. Performed By: #### L 500.2500, L501.8100, L501.5200, L100.0100 #### [facility] [address] [place], [address] ECRCL 46.04 ml/min Normal [facility] Comment on above: Performed By: #### L 500.2500, L501.8100, L501.5200, L100.0100 #### [facility] [address] [place], [address] EST GFR - AA 55 mL/min Low >60 [facility] Comment on above: Result Comment: Afri can Ivorian GFR Calc Performed By: #### L 500.2500, L501.8100, L501.5200, L100.0100 #### [facility] [address] [place], [address] GAP 5 Normal 5-15 [facility] Comment on above: Performed By: #### L 500.2500, L501.8100, L501.5200, L100.0100 #### [facility] [address] [place], [address] GFR/1.73 sq M.predicted among non-blacks MDRD (S/P/Bld) [Vol rate/Area] 45 mL/min/{1.73_m2} Low >60 [facility] Comment on above: Result Comment: Non- GFR Calc Performed By: #### L 500.2500, L501.8100, L501.5200, L100.0100 #### [facility] [address] [place], [address] Globulin (S) [Mass/Vol] 3.3 g/dL Normal 2.2-4.2 [facility] Comment on above: Performed By: #### L 500.2500, L501.8100, L501.5200, L100.0100 #### [facility] [address] [place], [address] Glucose [Mass/Vol] 96 mg/dL Normal 74-106 [facility] Comment on above: Performed By: #### L 500.2500, L501.8100, L501.5200, L100.0100 #### [facility] [address] [place], [address] Potassium [Moles/Vol] 4.8 mmol/L Normal 3.5-5.1 [facility] Comment on above: Performed By: #### L 500.2500, L501.8100, L501.5200, L100.0100 #### [facility] [address] [place], [address] Sodium [Moles/Vol] 138 mmol/L Normal 136-145 [facility] Comment on above: Performed By: #### L 500.2500, L501.8100, L501.5200, L100.0100 #### [facility] [address] [place], [address] T PROT 6.5 g/dL Normal 6.4-8.2 [facility] Comment on above: Performed By: #### L 500.2500, L501.8100, L501.5200, L100.0100 #### [facility] [address] [place], [address] Urea nitrogen [Mass/Vol] 27 mg/dL High 7-18 [facility] Comment on above: Performed By: #### L 500.2500, L501.8100, L501.5200, L100.0100 #### [facility] [address] [place], [address] Emergency Department Summary on 09-26-2024 Emergency Department Summary [facility] Medical Records Department [address] [place] [address] Emergency Department Summary 09/26/24 MR#: [id number] Acct: [id number] Name: REEMA SHAH Rep #: [id number] : 1975 49 From: Georges Kelley DO [...] is requesting this be evaluated here today. [facility] Medical History CKD (chronic kidney disease) Diaphragmatic hernia Edema Epileptic seizure, generalized Falls Fatty liver Fracture of nasal bone GERD (gastroesophageal reflux disease) Hirsutism History of FL (myocardial infarction) History of TIA (transient ischemic [...] 11:21 Pe (more content not included)... Normal [facility] Lipaseon 09-26-2024 Lipase [Catalytic activity/Vol] 107 U/L High 13-75 [facility] Comment on above: Result Comment: Redd stovall note: LIPASE revised reference range effective 23. New Lipase methodology. Expected to produce lower values than the previous assay method. NEW Reference Range: 13 - 75 U/L Performed By: #### L 500.2500, L501.8100, L501.5200, L100.0100 #### [facility] [address] [place], [address] M100.678on 09-26-2024 M100.678 Pending SARS-CoV-2 (COVID 19) Negative INFLUENZA A Negative INFLUENZA B Negative RSV PCR Negative Normal [facility] Comment on above: Performed By: #### L 500.2500, L501.8100, L501.5200, L100.0100 #### [facility] [address] [place], [address] Urinalysis, Completeon 09-26 EPI,SQUAMOUS 0-5 SEEN Normal 5-10 [facility] Comment on above: Order Comment: CLEAN CATCH Performed By: #### L 500.2500, L501.8100, L501.5200, L100.0100 #### [facility] [address] [place], [address] BACTERIA 0 SEEN Normal None Seen [facility] Comment on above: Order Comment: CLEAN CATCH Performed By: #### L 500.2500, L501.8100, L501.5200, L100.0100 #### [facility] [address] [place], [address] Mucus Ql (Urine sed) 0 SEEN Normal [facility] Comment on above: Order Comment: CLEAN CATCH Performed By: #### L 500.2500, L501.8100, L501.5200, L100.0100 #### [facility] [address] [place], [address] RBC 0 SEEN Normal 0-5 [facility] Comment on above: Order Comment: CLEAN CATCH Performed By: #### L 500.2500, L501.8100, L501.5200, L100.0100 #### [facility] [address] [place], [address] WBC 0 SEEN Normal 0-5 [facility] Comment on above: Order Comment: CLEAN CATCH Performed By: #### L 500.2500, L501.8100, L501.5200, L100.0100 #### [facility] [address] [place], [address] Office Visiton 08-30-2024 Follow-up visit [id number] JayeshSophia faithrefugio Diop 1975 F Date Provider Department Center 08/30/2024 [facility]GAYATRI [facility] [place] None Family History Problem Relation [...] Grandmother Paternal Grandfather Daughter Alive Level of Service:85820 [place] OFFICE/OUTPATIENT ESTABLISHED MOD MDM 30 MIN Reason for Visit and Comments: Seborrheic Dermatitis [[id number]] - PRASANTH: 05/31/24 with Gayatri Bobby PA-C (TONI) [facility] Progress Noteon 08-30-2024 Progress Note DATE OF SERVICE: 08/30/2024 PATIENT NAME: Reema Shah : 1975 AGE: 48 y.o. CLINIC NUMBER: [id number] Visit type: Established patient Chief Complaint Patient [...] on face, armpits, groin. 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 Patient [...] Gayatri Bobby PA-C 08/30/24 3:36 PM Normal [facility] CBC W/Diff, Automatedon 10-0 Anisocytosis Ql (Bld) RARE Normal [facility] Comment on above: Performed By: #### L 500.2500, L501.8100, L501.5200, L100.0100 #### [facility] [address] [place], [address] MACROCYTOSIS RARE Normal [facility] Comment on above: Performed By: #### L 500.2500, L501.8100, L501.5200, L100.0100 #### [facility] [address] [place], [address] PLT EST MOD DEC Normal ADEQ [facility] Comment on above: Performed By: #### L 500.2500, L501.8100, L501.5200, L100.0100 #### [facility] [address] [place], [address] PLT MORPH LARGE Normal [facility] Comment on above: Performed By: #### L 500.2500, L501.8100, L501.5200, L100.0100 #### [facility] [address] [place], [address] RED CELL MORPH N CHROM Normal NORM C C [facility] Comment on above: Performed By: #### L 500.2500, L501.8100, L501.5200, L100.0100 #### [facility] [address] [place], [address] Comprehensive Metabolic Prof ilon 07-25-2024 Albumin [Mass/Vol] 3.4 g/dL Normal 3.2-5.0 [facility] Comment on above: Performed By: #### L 500.2500, L501.8100, L501.5200, L100.0100 #### [facility] [address] [place], [address] Albumin/Globulin [Mass ratio] 1.1 {ratio} Normal 0.9-2.4 [facility] Comment on above: Performed By: #### L 500.2500, L501.8100, L501.5200, L100.0100 #### [facility] [address] [place], [address] ALK P 99 U/L Normal 45-117 [facility] Comment on above: Performed By: #### L 500.2500, L501.8100, L501.5200, L100.0100 #### [facility] [address] [place], [address] ALT [Catalytic activity/Vol] 36 U/L Normal 13-56 [facility] Comment on above: Performed By: #### L 500.2500, L501.8100, L501.5200, L100.0100 #### [facility] [address] [place], [address] AST [Catalytic activity/Vol] 37 U/L Normal 15-37 [facility] Comment on above: Performed By: #### L 500.2500, L501.8100, L501.5200, L100.0100 #### [facility] [address] [place], [address] Bilirubin [Mass/Vol] 0.20 mg/dL Normal 0.20-1.00 [facility] Comment on above: Result Comment: For patients on eltrombopag therapy, use of Dimension [place] TBIL is not recommended. Performed By: #### L 500.2500, L501.8100, L501.5200, L100.0100 #### [facility] [address] [place], [address] BUN/CRE 15.5 RATIO Normal 10-20 [facility] Comment on above: Performed By: #### L 500.2500, L501.8100, L501.5200, L100.0100 #### [facility] [address] [place], [address] CA,Total 8.5 mg/dL Normal 8.5-10.1 [facility] Comment on above: Performed By: #### L 500.2500, L501.8100, L501.5200, L100.0100 #### [facility] [address] [place], [address] Chloride [Moles/Vol] 105 mmol/L Normal 98-107 [facility] Comment on above: Performed By: #### L 500.2500, L501.8100, L501.5200, L100.0100 #### [facility] [address] [place], [address] CO2 [Moles/Vol] 25.0 mmol/L Normal 21.0-32.0 [facility] Comment on above: Performed By: #### L 500.2500, L501.8100, L501.5200, L100.0100 #### [facility] [address] [place], [address] Creatinine [Mass/Vol] 1.48 mg/dL High 0.55-1.02 [facility] Comment on above: Result Comment: The validity of the calculated GFR GFRAA in patients over 70 years has not been determined. Clinical correlation is essential. Performed By: #### L 500.2500, L501.8100, L501.5200, L100.0100 #### [facility] [address] [place], [address] ECRCL 40.99 ml/min Normal [facility] Comment on above: Performed By: #### L 500.2500, L501.8100, L501.5200, L100.0100 #### [facility] [address] [place], [address] EST GFR - AA 48 mL/min Low >60 [facility] Comment on above: Result Comment: Afri can Ivorian GFR Calc Performed By: #### L 500.2500, L501.8100, L501.5200, L100.0100 #### [facility] [address] [place], [address] GAP 8 Normal 5-15 [facility] Comment on above: Performed By: #### L 500.2500, L501.8100, L501.5200, L100.0100 #### [facility] [address] [place], [address] GFR/1.73 sq M.predicted among non-blacks MDRD (S/P/Bld) [Vol rate/Area] 40 mL/min/{1.73_m2} Low >60 [facility] Comment on above: Result Comment: Non- GFR Calc Performed By: #### L 500.2500, L501.8100, L501.5200, L100.0100 #### [facility] [address] [place], [address] Globulin (S) [Mass/Vol] 3.1 g/dL Normal 2.2-4.2 [facility] Comment on above: Performed By: #### L 500.2500, L501.8100, L501.5200, L100.0100 #### [facility] [address] [place], [address] Glucose [Mass/Vol] 115 mg/dL High 74-106 [facility] Comment on above: Result Comment: Fast ing Glucose result from 100 to 125 mg/dL suggests IMPAIRED HOMEOSTASIS per A.D.A. criteria. Performed By: #### L 500.2500, L501.8100, L501.5200, L100.0100 #### [facility] [address] [place], [address] Potassium [Moles/Vol] 4.6 mmol/L Normal 3.5-5.1 [facility] Comment on above: Performed By: #### L 500.2500, L501.8100, L501.5200, L100.0100 #### [facility] [address] [place], [address] Sodium [Moles/Vol] 138 mmol/L Normal 136-145 [facility] Comment on above: Performed By: #### L 500.2500, L501.8100, L501.5200, L100.0100 #### [facility] [address] [place], [address] T PROT 6.5 g/dL Normal 6.4-8.2 [facility] Comment on above: Performed By: #### L 500.2500, L501.8100, L501.5200, L100.0100 #### [facility] [address] [place], [address] Urea nitrogen [Mass/Vol] 23 mg/dL High 7-18 [facility] Comment on above: Performed By: #### L 500.2500, L501.8100, L501.5200, L100.0100 #### [facility] [address] [place], [address] Emergency Department Summary on 07-25-2024 Emergency Department Summary [facility] Medical Records Department [address] [place] [address] Emergency Department Summary 07/25/24 MR#: [id number] Acct: [id number] Name: REEMA SHAH Rep #: [id number] : 1975 48 From: Archie Sanches DO PCP: Dr. Sree Jamison MD Status:REG ER Location: ED HPI History of Present Illness Chief Complaint: Seizure Detail of Chief Complaint: Seizure Informant: patient Narrative Narrative: Patient presents to the emergency department via EMS from halfway with complaint of seizures today x 5. [...] or head injuries. She denies recent illness. [facility] Medical History CKD (chronic kidney disease) Diaphragmatic hernia Edema Epileptic seizure, generalized Falls Fatty liver Fracture of nasal bone GERD (gastroesophageal reflux disease) Hirsutism History of FL (myocardial infarction) History of TIA (transient ischemic [...] 07/25/24 1 (more content not included)... Normal [facility] Urinalysis, Completeon 07-25 EPI,SQUAMOUS 0-5 SEEN Normal 5-10 [facility] Comment on above: Order Comment: CLEAN CATCH Performed By: #### L 500.2500, L501.8100, L501.5200, L100.0100 #### [facility] [address] [place], [address] BACTERIA 0 SEEN Normal None Seen [facility] Comment on above: Order Comment: CLEAN CATCH Performed By: #### L 500.2500, L501.8100, L501.5200, L100.0100 #### [facility] [address] [place], [address] Mucus Ql (Urine sed) 0 SEEN Normal [facility] Comment on above: Order Comment: CLEAN CATCH Performed By: #### L 500.2500, L501.8100, L501.5200, L100.0100 #### [facility] [address] [place], [address] RBC 0 SEEN Normal 0-5 [facility] Comment on above: Order Comment: CLEAN CATCH Performed By: #### L 500.2500, L501.8100, L501.5200, L100.0100 #### [facility] [address] [place], [address] WBC 0 SEEN Normal 0-5 [facility] Comment on above: Order Comment: CLEAN CATCH Performed By: #### L 500.2500, L501.8100, L501.5200, L100.0100 #### [facility] [address] [place], [address] Valproic Acid (Depakene) Lev woody 07-25-2024 VALPROIC ACID 58 ug/mL Normal 50-100 [facility] Comment on above: Performed By: #### L 500.2500, L501.8100, L501.5200, L100.0100 #### [facility] [address] [place], [address] Office Visiton 07-18-2024 Follow-up visit [id number] Reema Shah 1975 F Date Provider Department Center 07/18/2024 [id number] CHOPRA [facility] None Family History Problem Relation [...] Grandmother Paternal Grandfather Daughter Alive Level of Service:34990 [place] OFFICE/OUTPATIENT ESTABLISHED HIGH MDM 40 MIN Reason for Visit and Comments: Follow-up [957706] Seizures [97] Tremors [811955] Normal [facility] Progress Noteon 07-18-2024 Progress Note [facility] [address] [facility] [address] [facility] [address] Dept: [phone] Dept Loc: [phone] Valentina Chopra MD CHIEF COMPLAINT: Chief Complaint [...] fallen. She reports that she was in [facility] in [place]. She reports that she ended up in [...] (tract) infections, Psoriasis, Repeated falls, and Thrombocytopenia ([facility]). Past Surgical History: has a past surgical [...] in th (more content not included)... Normal [facility] 36on 07-11-2024 36 We have been unable to reach your patient to schedule their testing. Test Name: eeg mcfp 1st Attempt: 07/07 2nd Attempt: 07/10 3rd attempt; 07/11 left message with tera from the nursing facility who states she will take and give to nursing staff. Vanda was notified this is for mainly documentation. Normal [facility] Office Visiton 07-07-2024 Follow-up visit [id number] Reema Shah 1975 F Date Provider Department Center 07/07/2024 [facility] [place] None Family History Problem Relation Age [...] Grandmother Paternal Grandfather Daughter Alive Level of Service:77292 [place] OFFICE/OUTPATIENT ESTABLISHED HIGH [facility] 40 MIN Reason for Visit and Comments: New Patient [542] - New Patient referred to us by Dr. Chopra for seizures. Last seizure was in March of 2024 and went to [facility] ED in [place]. Normal [facility] Progress Noteon 07-07-2024 Progress Note Department of Neurological Sciences Section of Epilepsy [facility] [address] [facility] [address] Dept: [phone] Dept Loc: [phone] . Visit type: follow-up Reason for Visit: New Patient (New Patient referred to us by Dr. Chopra for seizures. Last seizure was in March of 2024 and went to [facility] ED in [place].) Per Dr Chopra (who had been following Sophia since 2007), it was medically necessary for [...] is a 48 y.o. who lives at [facility] with a PMH significant for mood disorder, borderline personality disorder, psoriasis, and epilepsy since Jun 10, 1994 while at the [facility] when she experienced a convulsion. Previous provider ([facility]) followed her for kidney problems since [...] tablet lidocaine (more content not included)... Normal [facility] RENAL FUNCTION PANELon 06-06 Albumin [Mass/Vol] 3.6 g/dL Normal 3.2-5.2 [facility] Comment on above: Order Comment: [facility] has implemented the eGFR calculation approach that does not have a coefficient for race that conforms to the NKF-ASN Task Force Recommendations. Performed By: #### L AB295 #### [facility] [address] [place], [place] [address] Ismael Torre M.D. [id number] Anion gap [Moles/Vol] 12 mmol/L Normal - [facility] Comment on above: Order Comment: [facility] has implemented the eGFR calculation approach that does not have a coefficient for race that conforms to the NKF-ASN Task Force Recommendations. Performed By: #### L AB295 #### [facility] [address] [place], [place] [address] Ismael Torre M.D. [id number] Calcium [Mass/Vol] 8.5 mg/dL Normal 8.4-10.2 [facility] Comment on above: Order Comment: [facility] has implemented the eGFR calculation approach that does not have a coefficient for race that conforms to the NKF-ASN Task Force Recommendations. Performed By: #### L AB295 #### [facility] [address] [place], [place] [address] Ismael Torre M.D. [id number] Chloride [Moles/Vol] 102 mmol/L Normal 98-108 [facility] Comment on above: Order Comment: [facility] has implemented the eGFR calculation approach that does not have a coefficient for race that conforms to the NKF-ASN Task Force Recommendations. Performed By: #### L AB295 #### [facility] [address] [place] [address] Ismael Torre M.D. [id number] Creatinine [Mass/Vol] 1.41 mg/dL High 0.40-1.10 [facility] Comment on above: Order Comment: [facility] has implemented the eGFR calculation approach that does not have a coefficient for race that conforms to the NKF-ASN Task Force Recommendations. Performed By: #### L AB295 #### [facility] [address] [place] [address] Ismael Torre M.D. [id number] EGFR 46 mL/min/1.73 m2 Low >=60 [facility] Comment on above: Order Comment: [facility] has implemented the eGFR calculation approach that does not have a coefficient for race that conforms to the NKF-ASN Task Force Recommendations. Result Comment: Frieda mated GFR was calculated using the 2020 CKD-EPI creatinine equation. Performed By: #### L AB295 #### [facility] [address] [place] [address] Ismael Torre M.D. [id number] Glucose [Mass/Vol] 121 mg/dL High 65-99 [facility] Comment on above: Order Comment: [facility] has implemented the eGFR calculation approach that does not have a coefficient for race that conforms to the NKF-ASN Task Force Recommendations. Performed By: #### L AB295 #### [facility] [address] [place] [id number] Ismael Torre M.D. [id number] HCO3 (Bld) [Moles/Vol] 25 mmol/L Normal 21-32 [facility] Comment on above: Order Comment: [facility] has implemented the eGFR calculation approach that does not have a coefficient for race that conforms to the NKF-ASN Task Force Recommendations. Performed By: #### L AB295 #### [facility] [address] [place] [address] Ismael Torre M.D. [id number] Phosphate [Mass/Vol] 2.4 mg/dL Low 2.7-4.5 [facility] Comment on above: Order Comment: [facility] has implemented the eGFR calculation approach that does not have a coefficient for race that conforms to the NKF-ASN Task Force Recommendations. Performed By: #### L AB295 #### [facility] [address] [place] [address] Ismael Torre M.D. [id number] Potassium [Moles/Vol] 3.8 mmol/L Normal 3.5-5.1 [facility] Comment on above: Order Comment: [facility] has implemented the eGFR calculation approach that does not have a coefficient for race that conforms to the NKF-ASN Task Force Recommendations. Performed By: #### L AB295 #### [facility] [address] [place] [address] Ismael Torre M.D. [id number] Sodium [Moles/Vol] 135 mmol/L Normal 135-145 [facility] Comment on above: Order Comment: [facility] has implemented the eGFR calculation approach that does not have a coefficient for race that conforms to the NKF-ASN Task Force Recommendations. Performed By: #### L AB295 #### [facility] [address] [place] [address] Ismael Torre M.D. [id number] Urea nitrogen [Mass/Vol] 18 mg/dL Normal 8-25 [facility] Comment on above: Order Comment: [facility] has implemented the eGFR calculation approach that does not have a coefficient for race that conforms to the NKF-ASN Task Force Recommendations. Performed By: #### L AB295 #### [facility] [address] [place], [place] [address] Ismael Torre M.D. [id number] Urea nitrogen/Creatinine [Mass ratio] 12.8 mg/mg Normal 10.0-20.0 [facility] Comment on above: Order Comment: [facility] has implemented the eGFR calculation approach that does not have a coefficient for race that conforms to the NKF-ASN Task Force Recommendations. Performed By: #### L AB295 #### [facility] [address] [place], [place] [address] Ismael Torre M.D. [id number] Renal function 2000 panelon 06-06-2024 Albumin [Mass/Vol] 3.6 g/dL 3.2 - 5.2 g/dL [facility] Anion gap [Moles/Vol] 12 mmol/L 10 - 2 0 mmol/L [facility] Calcium [Mass/Vol] 8.5 mg/dL 8.4 - 10. 2 mg/dL [facility] Chloride [Moles/Vol] 102 mmol/L 98 - 10 8 mmol/L [facility] Creatinine [Mass/Vol] 1.41 mg/dL High 0.40 - 1.10 mg/dL [facility] GFR/1.73 sq M.predicted CKD-EPI (S/P/Bld) [Vol rate/Area] 46 Low - PINF [facility] Comment on above: Estimated GFR was ca lculated using the 2020 CKD-EPI creatinine equation. Glucose [Mass/Vol] 121 mg/dL High 65 - 99 mg/dL [facility] HCO3 [Moles/Vol] 25 mmol/L 21 - 32 mmol/L [facility] Interpretation and review of laboratory results Abnormal [facility] Phosphate [Mass/Vol] 2.4 mg/dL Low 2.7 - 4 .5 mg/dL [facility] Potassium [Moles/Vol] 3.8 mmol/L 3.5 - 5.1 mmol/L [facility] Sodium [Moles/Vol] 135 mmol/L 135 - 145 mmol/L [facility] Urea nitrogen [Mass/Vol] 18 mg/dL 8 - 25 mg/dL [facility] Urea nitrogen/Creatinine [Mass ratio] 12.8 mg/mg 10.0 - 20.0 [facility] has implemented the eGFR calculation approach that does not have a coefficient for race that conforms to the NKF-ASN Task Force Recommendations. [facility] CBC Auto Differentialon 05-18 Erythrocyte distribution width (RBC) [Entitic vol] 13.0 % 11.6 - 14.8 % [facility] Hematocrit (Bld) [Volume fraction] 38.9 % 36.0 - 46.0 % [facility] Hemoglobin (Bld) [Mass/Vol] 12.8 g/dL 12.0 - 16.0 g/dL [facility] MCH (RBC) [Entitic mass] 30.7 pg 26.0 - 34.0 pg [facility] MCHC (RBC) [Mass/Vol] 32.9 g/dL 31.0 - 37.0 g/dL [facility] MCV (RBC) [Entitic vol] 93.3 fL 80.0 - 100.0 fL [facility] Nucleated RBC (Bld) [#/Vol] 0.00 10*3/uL [facility] Nucleated RBC/100 WBC (Bld) [Ratio] 0.0 % [facility] Platelet mean volume (Bld) [Entitic vol] 10.1 fL 9.4 - 12.4 fL [facility] Platelets (Bld) [#/Vol] 74 10*3/uL Low [facility] RBC (Bld) [#/Vol] 4.17 10*6/uL [facility] WBC (Bld) [#/Vol] 4.08 10*3/uL Low [facility] CBC WITH AUTO DIFFERENTIALon 06-05-2024 AUTO NRBC 0.0 % Normal [facility] Comment on above: Performed By: #### L [id number] #### [facility] [address] [address] Ismael Torre M.D. [id number] AUTO NRBC ABS COUNT 0.00 K/mcL Normal 0.00-0.00 [facility] Comment on above: Performed By: #### L [id number] #### [facility] [address] [place], [place] [address] Ismael Torre M.D. [id number] Erythrocyte distribution width (RBC) [Ratio] 13.0 % Normal 11.6-14.8 [facility] Comment on above: Performed By: #### L [id number] #### LAB [address] [address] Ismael Torre M.D. [id number] Hematocrit (Bld) [Volume fraction] 38.9 % Normal 36.0-46.0 [facility] Comment on above: Performed By: #### L [id number] #### LAB [address] [address] Ismael Torre M.D. [id number] Hemoglobin (Bld) [Mass/Vol] 12.8 g/dL Normal 12.0-16.0 [facility] Comment on above: Performed By: #### L [id number] #### LAB [address] [address] Ismael Torre M.D. [id number] MCH (RBC) [Entitic mass] 30.7 pg Normal 26.0-34.0 [facility] Comment on above: Performed By: #### L [id number] #### LAB [address] [address] Ismael Torre M.D. [id number] MCV (RBC) [Entitic vol] 93.3 fL Normal 80.0-100.0 [facility] Comment on above: Performed By: #### L [id number] #### LAB [address] [place] [address] Ismael Torre M.D. [id number] MEAN CORPUSCULAR HEMOGLOBIN CONC 32.9 g/dL Normal 31.0-37.0 [facility] Comment on above: Performed By: #### L [id number] #### LAB [address] [address] Ismael Torre M.D. [id number] Platelet mean volume (Bld) [Entitic vol] 10.1 fL Normal 9.4-12.4 [facility] Comment on above: Performed By: #### L [id number] #### LAB [address] [place] [address] Ismael Torre M.D. [id number] Platelets (Bld) [#/Vol] 74 10*3/uL Low 150-400 [facility] Comment on above: Performed By: #### L [id number] #### [facility] [address] [address] Ismeal Torre M.D. [id number] RBC (Bld) [#/Vol] 4.17 10*6/uL Normal 4.00-5.20 [facility] Comment on above: Performed By: #### L [id number] #### [facility] [address] [address] Ismael Torre M.D. [id number] WBC (Bld) [#/Vol] 4.08 10*3/uL Low 4.50-11.00 [facility] Comment on above: Performed By: #### L [id number] #### LAB [address] [address] Ismael Torre M.D. [id number] CBC and Diff Morphologyon Ovalocytes LM Ql (Bld) Few [facility] Platelets LM Ql (Bld) Decreased Abnormal Normal [facility] Polychromasia LM Ql (Bld) Few [facility] RBC morphology finding Nom (Bld) See Comment [facility] Comment on above: RBC Indices confirme d with manual peripheral smear review. COMPREHENSIVE METABOLIC PANE [place] 06-05-2024 Albumin [Mass/Vol] 3.6 g/dL Normal 3.2-5.2 [facility] Comment on above: Order Comment: [facility] has implemented the eGFR calculation approach that does not have a coefficient for race that conforms to the NKF-ASN Task Force Recommendations. Performed By: #### L [id number] #### [facility] [address] [address] Ismael Torre M.D. [id number] ALP [Catalytic activity/Vol] 72 U/L Normal 40-150 [facility] Comment on above: Order Comment: [facility] has implemented the eGFR calculation approach that does not have a coefficient for race that conforms to the NKF-ASN Task Force Recommendations. Performed By: #### L [id number] #### [facility] [address] [id number] Ismael Torre M.D. [id number] ALT [Catalytic activity/Vol] 11 U/L Normal 0-35 U/L [facility] Comment on above: Order Comment: [facility] has implemented the eGFR calculation approach that does not have a coefficient for race that conforms to the NKF-ASN Task Force Recommendations. Performed By: #### L [id number] #### [facility] [address] [address] Ismael Torre M.D. [id number] Anion gap [Moles/Vol] 11 mmol/L Normal 10-20 [facility] Comment on above: Order Comment: [facility] has implemented the eGFR calculation approach that does not have a coefficient for race that conforms to the NKF-ASN Task Force Recommendations. Performed By: #### L [id number] #### LAB [address] [address] Ismael Torre M.D. [id number] AST [Catalytic activity/Vol] 22 U/L Normal 0-35 U/L [facility] Comment on above: Order Comment: [facility] has implemented the eGFR calculation approach that does not have a coefficient for race that conforms to the NKF-ASN Task Force Recommendations. Performed By: #### L [id number] #### [facility] [address] [address] Ismael Torre M.D. [id number] Bilirubin [Mass/Vol] 0.2 mg/dL Normal 0.0-1.3 [facility] Comment on above: Order Comment: [facility] has implemented the eGFR calculation approach that does not have a coefficient for race that conforms to the NKF-ASN Task Force Recommendations. Performed By: #### L [id number] #### [facility] [address] [address] Ismael Torre M.D. [id number] Calcium [Mass/Vol] 8.5 mg/dL Normal 8.4-10.2 [facility] Comment on above: Order Comment: [facility] has implemented the eGFR calculation approach that does not have a coefficient for race that conforms to the NKF-ASN Task Force Recommendations. Performed By: #### L [id number] #### [facility] [address] [address] Ismael Torre M.D. [id number] Chloride [Moles/Vol] 108 mmol/L Normal 98-108 [facility] Comment on above: Order Comment: [facility] has implemented the eGFR calculation approach that does not have a coefficient for race that conforms to the NKF-ASN Task Force Recommendations. Performed By: #### L [id number] #### [facility] [address] [address] Ismeal Torre M.D. [id number] Creatinine [Mass/Vol] 1.34 mg/dL High 0.40-1.10 [facility] Comment on above: Order Comment: [facility] has implemented the eGFR calculation approach that does not have a coefficient for race that conforms to the NKF-ASN Task Force Recommendations. Performed By: #### L [id number] #### [facility] [address] [address] Ismael Torre M.D. [id number] EGFR 48 mL/min/1.73 m2 Low >=60 [facility] Comment on above: Order Comment: [facility] has implemented the eGFR calculation approach that does not have a coefficient for race that conforms to the NKF-ASN Task Force Recommendations. Result Comment: Frieda mated GFR was calculated using the 2020 CKD-EPI creatinine equation. Performed By: #### L [id number] #### [facility] [address] [address] Ismael Torre M.D. [id number] Glucose [Mass/Vol] 81 mg/dL Normal 65-99 [facility] Comment on above: Order Comment: [facility] has implemented the eGFR calculation approach that does not have a coefficient for race that conforms to the NKF-ASN Task Force Recommendations. Performed By: #### L [id number] #### [facility] [address] [address] Ismael Torre M.D. [id number] HCO3 (Bld) [Moles/Vol] 24 mmol/L Normal 21-32 [facility] Comment on above: Order Comment: [facility] has implemented the eGFR calculation approach that does not have a coefficient for race that conforms to the NKF-ASN Task Force Recommendations. Performed By: #### L [id number] #### [facility] [address] [address] Ismael Torre M.D. [id number] Potassium [Moles/Vol] 4.4 mmol/L Normal 3.5-5.1 [facility] Comment on above: Order Comment: [facility] has implemented the eGFR calculation approach that does not have a coefficient for race that conforms to the NKF-ASN Task Force Recommendations. Performed By: #### L [id number] #### [facility] [address] [address] Ismael Torre M.D. [id number] Protein [Mass/Vol] 5.5 g/dL Low 6.0-8.0 [facility] Comment on above: Order Comment: [facility] has implemented the eGFR calculation approach that does not have a coefficient for race that conforms to the NKF-ASN Task Force Recommendations. Performed By: #### L [id number] #### [facility] [address] [address] Ismael Torre M.D. [id number] Sodium [Moles/Vol] 139 mmol/L Normal 135-145 [facility] Comment on above: Order Comment: [facility] has implemented the eGFR calculation approach that does not have a coefficient for race that conforms to the NKF-ASN Task Force Recommendations. Performed By: #### L [id number] #### [facility] [address] [address] Ismael Torre M.D. [id number] Urea nitrogen [Mass/Vol] 20 mg/dL Normal 8-25 [facility] Comment on above: Order Comment: [facility] has implemented the eGFR calculation approach that does not have a coefficient for race that conforms to the NKF-ASN Task Force Recommendations. Performed By: #### L [id number] #### [facility] [address] [place], [place] [address] Ismael Torre M.D. [id number] Urea nitrogen/Creatinine [Mass ratio] 14.9 mg/mg Normal 10.0-20.0 [facility] Comment on above: Order Comment: [facility] has implemented the eGFR calculation approach that does not have a coefficient for race that conforms to the NKF-ASN Task Force Recommendations. Performed By: #### L [id number] #### [facility] [address] [place], [place] [address] Ismael Torre M.D. [id number] Comprehensive metabolic 2000 panelon 06-05-2024 Albumin [Mass/Vol] 3.6 g/dL 3.2 - 5.2 g/dL [facility] ALP [Catalytic activity/Vol] 72 U/L 40 - 150 U/L [facility] ALT [Catalytic activity/Vol] 11 U/L 0-35 U/L [facility] Anion gap [Moles/Vol] 11 mmol/L 10 - 2 0 mmol/L [facility] AST [Catalytic activity/Vol] 22 U/L 0-35 U/L [facility] Bilirubin [Mass/Vol] 0.2 mg/dL 0.0 - 1 .3 mg/dL [facility] Calcium [Mass/Vol] 8.5 mg/dL 8.4 - 10. 2 mg/dL [facility] Chloride [Moles/Vol] 108 mmol/L 98 - 10 8 mmol/L [facility] Creatinine [Mass/Vol] 1.34 mg/dL High 0.40 - 1.10 mg/dL [facility] GFR/1.73 sq M.predicted CKD-EPI (S/P/Bld) [Vol rate/Area] 48 Low - PINF [facility] Comment on above: Estimated GFR was ca lculated using the 2020 CKD-EPI creatinine equation. Glucose [Mass/Vol] 81 mg/dL 65 - 99 mg/dL [facility] HCO3 [Moles/Vol] 24 mmol/L 21 - 32 mmol/L [facility] Interpretation and review of laboratory results Abnormal [facility] Potassium [Moles/Vol] 4.4 mmol/L 3.5 - 5.1 mmol/L [facility] Protein [Mass/Vol] 5.5 g/dL Low 6.0 - 8.0 g/dL [facility] Sodium [Moles/Vol] 139 mmol/L 135 - 145 mmol/L [facility] Urea nitrogen [Mass/Vol] 20 mg/dL 8 - 25 mg/dL [facility] Urea nitrogen/Creatinine [Mass ratio] 14.9 mg/mg 10.0 - 20.0 [facility] has implemented the eGFR calculation approach that does not have a coefficient for race that conforms to the NKF-ASN Task Force Recommendations. [facility] EKGon 06-05-2024 [facility] EKG 12-leadon 06-05-2024 Atrial Rate 70 BPM [facility] P [place] 47 degrees [facility] P-R Interval 160 ms [facility] Q-T Interval 422 ms [facility] QRS Duration 76 ms [facility] QTC Calculation (Bezet) 455 ms [facility] R [place] 42 degrees [facility] T [place] 76 degrees [facility] Ventricular Rate 70 BPM [facility] Normal sinus rhythm Normal ECG ECG Cart Interpretation see physician note for interpretation. Confirmed by Keke Leiva ([id number]) on 06/05/2024 7:36:56 PM MUSE [facility] MANUAL DIFFERENTIALon 2023 BASOPHILS - ABS (DIFF) 0.00 K/mcL Normal 0.00-0.30 [facility] Comment on above: Performed By: #### 4 [id number] #### LAB [address] [place], [place] [address] Ismael Torre M.D. [id number] BASOPHILS - REL (DIFF) 0.0 % Normal [facility] Comment on above: Performed By: #### 4 [id number] #### LAB [address] [place], [place] [address] Ismael Torre M.D. [id number] EOSINOPHILS - ABS (DIFF) 0.00 K/mcL Normal 0.00-0.50 [facility] Comment on above: Performed By: #### 4 [id number] #### LAB [address] [place], [place] [address] Ismael Torre M.D. [id number] EOSINOPHILS - REL (DIFF) 0.0 % Normal [facility] Comment on above: Performed By: #### 4 [id number] #### LAB [address] [address] Ismael Torre M.D. [id number] LYMPHOCYTE ATYPICAL - REL (DIFF) 2.6 % [facility] Comment on above: Performed By: #### 4 [id number] #### LAB [address] [address] Ismael Torre M.D. [id number] LYMPHOCYTES - ABS (DIFF) 1.43 K/mcL Normal 0.90-4.00 [facility] Comment on above: Performed By: #### 4 [id number] #### LAB [address] [address] Ismael Torre M.D. [id number] LYMPHOCYTES - REL (DIFF) 32.5 % [facility] Comment on above: Performed By: #### 4 [id number] #### LAB [address] [address] Ismael Torre M.D. [id number] MONOCYTES - ABS (DIFF) 0.28 K/mcL Low 0.30-0.90 [facility] Comment on above: Performed By: #### 4 [id number] #### LAB [address] [place] [address] Ismael Torre M.D. [id number] MONOCYTES - REL (DIFF) 6.8 % [facility] Comment on above: Performed By: #### 4 [id number] #### LAB [address] [place] [address] Ismael Torre M.D. [id number] NEUTROPHILS - ABS (DIFF) 2.37 K/mcL Normal 1.70-7.00 [facility] Comment on above: Performed By: #### 4 [id number] #### LAB [address] [place] [address] Ismael Torre M.D. [id number] NEUTROPHILS - REL (DIFF) 58.1 % [facility] Comment on above: Performed By: #### 4 [id number] #### LAB [address] [place] [address] Ismael Torre M.D. [id number] MORPHOLOGYon 06-05-2024 OVAL SCAN Few [facility] Comment on above: Performed By: #### L [id number] #### [facility] LAB [address] [place], [place] [address] Ismael Torre M.D. [id number] PLATELET ESTIMATE Decreased Abnormal Normal [facility] Comment on above: Performed By: #### L [id number] #### [facility] [address] [id number] Ismael Torre M.D. [id number] POLY SCAN Few Normal [facility] Comment on above: Performed By: #### L [id number] #### [facility] [address] [id number] Ismael Torre M.D. [id number] RBC MORPH SCAN See Comment Normal [facility] Comment on above: Result Comment: RBC Indices confirmed with manual peripheral smear review. Performed By: #### L [id number] #### [facility] [address] [address] Ismael Torre M.D. [id number] Manual Differential panel (B ld)on 06-05-2024 Basophils (Bld) [#/Vol] 0.00 10*3/uL [facility] Basophils/100 WBC (Bld) 0.0 % [facility] Eosinophils (Bld) [#/Vol] 0.00 10*3/uL [facility] Eosinophils/100 WBC (Bld) 0.0 % [facility] Lymphocytes (Bld) [#/Vol] 1.43 10*3/uL [facility] Lymphocytes/100 WBC (Bld) 32.5 % [facility] Monocytes (Bld) [#/Vol] 0.28 10*3/uL Low [facility] Monocytes/100 WBC (Bld) 6.8 % [facility] Neutrophils (Bld) [#/Vol] 2.37 10*3/uL [facility] Neutrophils/100 WBC (Bld) 58.1 % [facility] Variant lymphocytes/100 WBC (Bld) 2.6 % [facility] No Panel Informationon 06-05 Interpretation and review of laboratory results Abnormal [facility] OP NOTEon 06-05-2024 OP NOTE OPERATIVE REPORT DATE OF SURGERY: 8.19.24 SURGEON: Raúl Hudson MD DAIRY PROCESSING SUPERVISOR(S): none PREOPERATIVE DIAGNOSIS: Acute appendicitis. POSTOPERATIVE DIAGNOSIS: [...] at the base of the mesoappendix. An Skyline-Ganipa 45 stapler with a blue cartridge was [...] BY RAÚL HUDSON, ON 06/05/2024 16:43:42 Normal [facility] TISSUE EXAMon 06-05-2024 TISSUE EXAM Surgical Pathology Report Case: [id number] Authorizing Provider: Raúl Hudson MD Collected: 06/05/2024 04:36 PM Ordering Location: [facility] Periop Received: 06/06/2024 07:48 AM Pathologist: [...] in greatest thickness. Masses/polyps are not identified. Typesetting Machine Operator/Tender sections are submitted as follows: A1 appendiceal and mesoappendiceal margins (shave); A2 appendiceal tip (bisected); A3 additional appendix. JR Gross examination performed at: [facility] - [address] [place] [address] Microscopic examination is performed. Normal [facility] Comment on above: Performed By: #### L [id number] #### LAB [address] [place] [address] Ismael Torre M.D. [id number] Urine Mancilla Containeron 06-05 [facility] CBC Auto Differentialon 05-18 Erythrocyte distribution width (RBC) [Entitic vol] 12.9 % 11.6 - 14.8 % [facility] Hematocrit (Bld) [Volume fraction] 43.5 % 36.0 - 46.0 % [facility] Hemoglobin (Bld) [Mass/Vol] 14.7 g/dL 12.0 - 16.0 g/dL [facility] MCH (RBC) [Entitic mass] 31.3 pg 26.0 - 34.0 pg [facility] MCHC (RBC) [Mass/Vol] 33.8 g/dL 31.0 - 37.0 g/dL [facility] MCV (RBC) [Entitic vol] 92.6 fL 80.0 - 100.0 fL [facility] Nucleated RBC (Bld) [#/Vol] 0.00 10*3/uL [facility] Nucleated RBC/100 WBC (Bld) [Ratio] 0.0 % [facility] Platelet mean volume (Bld) [Entitic vol] 12.2 fL 9.4 - 12.4 fL [facility] Platelets (Bld) [#/Vol] 84 10*3/uL Low [facility] RBC (Bld) [#/Vol] 4.70 10*6/uL [facility] WBC (Bld) [#/Vol] 6.01 10*3/uL [facility] CBC WITH AUTO DIFFERENTIALon 06-04-2024 AUTO NRBC 0.0 % Normal [facility] Comment on above: Performed By: #### 4 [id number] #### LAB [address] [address] Ismael Torre M.D. [id number] AUTO NRBC ABS COUNT 0.00 K/mcL Normal 0.00-0.00 [facility] Comment on above: Performed By: #### 4 5060 #### LAB [address] [address] Ismael Torre M.D. [id number] Erythrocyte distribution width (RBC) [Ratio] 12.9 % Normal 11.6-14.8 [facility] Comment on above: Performed By: #### 4 5060 #### LAB [address] [address] Ismael Torre M.D. [id number] Hematocrit (Bld) [Volume fraction] 43.5 % Normal 36.0-46.0 [facility] Comment on above: Performed By: #### 4 5060 #### LAB [address] [address] Ismael Torre M.D. [id number] Hemoglobin (Bld) [Mass/Vol] 14.7 g/dL Normal 12.0-16.0 [facility] Comment on above: Performed By: #### 4 5060 #### LAB [address] [address] Ismael Torre M.D. [id number] MCH (RBC) [Entitic mass] 31.3 pg Normal 26.0-34.0 [facility] Comment on above: Performed By: #### 4 5060 #### LAB [address] [address] Ismael Torre M.D. [id number] MCV (RBC) [Entitic vol] 92.6 fL Normal 80.0-100.0 [facility] Comment on above: Performed By: #### 4 5060 #### LAB [address] [address] Ismael Torre M.D. [id number] MEAN CORPUSCULAR HEMOGLOBIN CONC 33.8 g/dL Normal 31.0-37.0 [facility] Comment on above: Performed By: #### 4 5060 #### LAB [address] [address] Ismael Torre M.D. [id number] Platelet mean volume (Bld) [Entitic vol] 12.2 fL Normal 9.4-12.4 [facility] Comment on above: Performed By: #### 4 5060 #### LAB [address] [address] Ismael Torre M.D. [id number] Platelets (Bld) [#/Vol] 84 10*3/uL Low 150-400 [facility] Comment on above: Performed By: #### 4 5060 #### LAB [address] [address] Ismael Torre M.D. [id number] RBC (Bld) [#/Vol] 4.70 10*6/uL Normal 4.00-5.20 [facility] Comment on above: Performed By: #### 4 5060 #### LAB [address] [place], [place] [address] Ismael Torre M.D. [id number] WBC (Bld) [#/Vol] 6.01 10*3/uL Normal 4.50-11.00 [facility] Comment on above: Performed By: #### 4 5060 #### LAB [address] [place], [place] [address] Ismael Torre M.D. [id number] CBC and Diff Morphologyon Platelets LM Ql (Bld) Decreased Abnormal Normal [facility] Polychromasia LM Ql (Bld) Few [facility] RBC morphology finding Nom (Bld) See Comment [facility] Comment on above: RBC Indices confirme d with manual peripheral smear review. COMPREHENSIVE METABOLIC PANE [place] 06-04-2024 Albumin [Mass/Vol] 4.1 g/dL Normal 3.2-5.2 [facility] Comment on above: Order Comment: [facility] has implemented the eGFR calculation approach that does not have a coefficient for race that conforms to the NKF-ASN Task Force Recommendations. Performed By: #### L [id number] #### [facility] [address] [place], [place] [address] Ismael Torre M.D. [id number] ALP [Catalytic activity/Vol] 84 U/L Normal 40-150 [facility] Comment on above: Order Comment: [facility] has implemented the eGFR calculation approach that does not have a coefficient for race that conforms to the NKF-ASN Task Force Recommendations. Performed By: #### L [id number] #### [facility] [address] [place], [place] [address] Ismael Torre M.D. [id number] ALT [Catalytic activity/Vol] 20 U/L Normal 0-35 U/L [facility] Comment on above: Order Comment: [facility] has implemented the eGFR calculation approach that does not have a coefficient for race that conforms to the NKF-ASN Task Force Recommendations. Performed By: #### L [id number] #### LAB [address] [place], [place] [address] Ismael Torre M.D. [id number] Anion gap [Moles/Vol] 17 mmol/L Normal 10-20 [facility] Comment on above: Order Comment: [facility] has implemented the eGFR calculation approach that does not have a coefficient for race that conforms to the NKF-ASN Task Force Recommendations. Performed By: #### L [id number] #### LAB [address] [place] [address] Ismael Torre M.D. [id number] AST [Catalytic activity/Vol] 43 U/L High 0-35 U/L [facility] Comment on above: Order Comment: [facility] has implemented the eGFR calculation approach that does not have a coefficient for race that conforms to the NKF-ASN Task Force Recommendations. Result Comment: Slig htly Hemolyzed Performed By: #### L [id number] #### LAB [address] [address] Ismael Torre M.D. [id number] Bilirubin [Mass/Vol] 0.3 mg/dL Normal 0.0-1.3 [facility] Comment on above: Order Comment: [facility] has implemented the eGFR calculation approach that does not have a coefficient for race that conforms to the NKF-ASN Task Force Recommendations. Performed By: #### L [id number] #### LAB [address] [place] [address] Ismael Torre M.D. [id number] Calcium [Mass/Vol] 9.1 mg/dL Normal 8.4-10.2 [facility] Comment on above: Order Comment: [facility] has implemented the eGFR calculation approach that does not have a coefficient for race that conforms to the NKF-ASN Task Force Recommendations. Performed By: #### L [id number] #### [facility] [address] [place] [address] Ismael Torre M.D. [id number] Chloride [Moles/Vol] 108 mmol/L Normal 98-108 [facility] Comment on above: Order Comment: [facility] [facility] has implemented the eGFR calculation approach that does not have a coefficient for race that conforms to the NKF-ASN Task Force Recommendations. Performed By: #### L [id number] #### [facility] [address] [place], [place] [address] Ismael Torre M.D. [id number] Creatinine [Mass/Vol] 1.45 mg/dL High 0.40-1.10 [facility] Comment on above: Order Comment: [facility] has implemented the eGFR calculation approach that does not have a coefficient for race that conforms to the NKF-ASN Task Force Recommendations. Performed By: #### L [id number] #### [facility] [address] [place], [place] [address] Ismael Torre M.D. [id number] EGFR 44 mL/min/1.73 m2 Low >=60 [facility] Comment on above: Order Comment: [facility] has implemented the eGFR calculation approach that does not have a coefficient for race that conforms to the NKF-ASN Task Force Recommendations. Result Comment: Frieda mated GFR was calculated using the 2020 CKD-EPI creatinine equation. Performed By: #### L [id number] #### [facility] [address] [place], [place] [address] Ismael Torre M.D. [id number] Glucose [Mass/Vol] 125 mg/dL High 65-99 [facility] Comment on above: Order Comment: [facility] has implemented the eGFR calculation approach that does not have a coefficient for race that conforms to the NKF-ASN Task Force Recommendations. Performed By: #### L [id number] #### [facility] [address] [place], [place] [address] Ismael Torre M.D. [id number] HCO3 (Bld) [Moles/Vol] 20 mmol/L Low 21-32 [facility] Comment on above: Order Comment: [facility] has implemented the eGFR calculation approach that does not have a coefficient for race that conforms to the NKF-ASN Task Force Recommendations. Performed By: #### L [id number] #### [facility] [address] [place] [address] Ismael Torre M.D. [id number] Potassium [Moles/Vol] 5.2 mmol/L High 3.5-5.1 [facility] Comment on above: Order Comment: [facility] has implemented the eGFR calculation approach that does not have a coefficient for race that conforms to the NKF-ASN Task Force Recommendations. Result Comment: Slig htly Hemolyzed Performed By: #### L [id number] #### [facility] [address] [place] [address] Ismael Torre M.D. [id number] Protein [Mass/Vol] 6.8 g/dL Normal 6.0-8.0 [facility] Comment on above: Order Comment: [facility] has implemented the eGFR calculation approach that does not have a coefficient for race that conforms to the NKF-ASN Task Force Recommendations. Performed By: #### L [id number] #### [facility] [address] [place] [address] Ismael Torre M.D. [id number] Sodium [Moles/Vol] 140 mmol/L Normal 135-145 [facility] Comment on above: Order Comment: [facility] has implemented the eGFR calculation approach that does not have a coefficient for race that conforms to the NKF-ASN Task Force Recommendations. Performed By: #### L [id number] #### [facility] [address] [place] [address] Ismael Torre M.D. [id number] Urea nitrogen [Mass/Vol] 21 mg/dL Normal 8-25 [facility] Comment on above: Order Comment: [facility] has implemented the eGFR calculation approach that does not have a coefficient for race that conforms to the NKF-ASN Task Force Recommendations. Performed By: #### L [id number] #### [facility] [address] [place] [address] Ismael Torre M.D. [id number] Urea nitrogen/Creatinine [Mass ratio] 14.5 mg/mg Normal 10.0-20.0 [facility] Comment on above: Order Comment: [facility] has implemented the eGFR calculation approach that does not have a coefficient for race that conforms to the NKF-ASN Task Force Recommendations. Performed By: #### L [id number] #### [facility] [address] [place], [place] [address] Ismael Torre M.D. [id number] CONSULTon 06-04-2024 CONSULT --- Attestation signed by Raúl Hudson MD at 06/05/2024 10:00 AM I agree with the Advanced Practice Provider note with the same day of service. The patient was seen and examined by me, the attending surgeon, on rounds on the date of service listed above. I have reviewed the Advanced Practice Provider note with the relevant labs, studies, and franchise business consultant notes. I have reviewed and agree [...] IV antibiotics Remainder of care as below [facility] SURGICAL HISTORY & PHYSICAL/CONSULTATION NOTE [...] Past Medical History: Diagnosis Date Acquired thrombocytopenia ([facility]) [facility]/Lopez Shaikh Acute kidney injury ([facility]) 05/22/2018 [facility]/Jonatan Chiu DO Anxiety Arm abrasion 06/19/2019 INFO GAINED FROM: /[facility] ED VISIT NOTE --- AC GAO MD Calcaneal spur of right foot 2017 Documented on x-ray CKD (chronic kidney disease) Congestive heart failure (CHF) ([facility]) [facility]opez Shaikh Contusion, hip 06/19/2019 INFO GAINED FROM: /[facility] ED VISIT NOTE --- AC GAO MD Depression Epilepsy ([facility]) 08/06/2011 [facility]- Dr. 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 GonzalezDatqyk-Qnczljkqi-csjata forated nonbleeding with biopsy 1 para 1 Hepatic steatosis [facility]/Heidy Jara MD Mild Hiatal hernia 12/29/[address] Lobo grade 4 Hypercholesterolemia [facility]/Jonatan Chiu DO Hypertension 2000 2000-present Insomnia [facility] Shaikh Kidney stone [facility] Laceration of head 06/19/2019 INFO GAINED FROM: /[facility] ED VISIT NOTE --- MURRAY ALEXIS,AC A Lung nodule 12/15/2017 0.5 cm pleural based nodule in right middle lobe. Mild linear atelectasis Mitral valve prolapse [facility]opez Shaikh Motor seizure (HCC) 03/16/2019 INFO GAINED FROM: /[facility] ED VISIT --- GILMAN DO,CAREN Rectus diastasis [facility]/Heidy Jara MD Present with small wide necked perumbical ventral containing fat. Second degree burn of foot 04/23/2018 Right Foot - [facility] Sleep apnea Stroke (HCC) 2000 mild Tremor Past Surgical History: Procedure Laterality Date Conner pH capsule placement 02/01/2017 Dr. Lobo BREAST REDUCTION 2000 [facility]-nonperforating gastritis ESOPHAGEAL MANOMETRY 02/01/2017 HERNIA REPAIR 06/11/2017 Dr Richards INTRAUTERINE DEVICE INSERTION 02/15/2015 Dr. Pennie Meyers OBROSALINE Laparoscopic LINX sphincter augmentation (more content not included)... Normal [facility] CT ABDOMEN PELVIS WITH IV CO [...] Encounter Type: Initial Additional signs and symptoms: [facility] pain ORDERING SYSTEM PROVIDED DIAGNOSIS CODES: COMPARISON: [...] 04, 2024 11:04:11 PM EDT Transcribed by: CAERY FRASER on WedJun 04, 2024 11:04:11 PM EDT Finalized by: CAREY FRASER on WedJun 04, 2024 11:04:11 PM EDT [facility] Comment on above: Order Comment: Injur [...] ED at 11:02 p.m.. Workstation ID: [id number] [facility] EXAMINATION: CT ABDOMEN PELVIS WITH IV CONTRAST [...] unremarkable. No destructive osseous lesion is seen. [facility] Carey Fraser MD - 06/04/2024 EXAMINATION: CT ABDOMEN PELVIS [...] ED at 11:02 p.m.. Workstation ID: [id number] [facility] Radiology Study observation (narrative) [facility] CT Abdomen and Pelvis W cont rast IVOrdered By: Carey Fraser on 06-04-2024 [facility] Work Phone: Comprehensive metabolic 2000 panelOrdered By: Anthony Mcrae on 06-04-2024 Albumin [Mass/Vol] 4.1 g/dL 3.2 - 5.2 g/dL [facility] ALP [Catalytic activity/Vol] 84 U/L 40 - 150 U/L [facility] ALT [Catalytic activity/Vol] 20 U/L 0-35 U/L [facility] Anion gap [Moles/Vol] 17 mmol/L 10 - 2 0 mmol/L [facility] AST [Catalytic activity/Vol] 43 U/L High 0-35 U/L [facility] Comment on above: Slightly Hemolyzed Bilirubin [Mass/Vol] 0.3 mg/dL 0.0 - 1 .3 mg/dL [facility] Calcium [Mass/Vol] 9.1 mg/dL 8.4 - 10. 2 mg/dL [facility] Chloride [Moles/Vol] 108 mmol/L 98 - 10 8 mmol/L [facility] Creatinine [Mass/Vol] 1.45 mg/dL High 0.40 - 1.10 mg/dL [facility] GFR/1.73 sq M.predicted CKD-EPI (S/P/Bld) [Vol rate/Area] 44 Low - PINF [facility] Comment on above: Estimated GFR was ca lculated using the 2020 CKD-EPI creatinine equation. Glucose [Mass/Vol] 125 mg/dL High 65 - 99 mg/dL [facility] HCO3 [Moles/Vol] 20 mmol/L Low 21 - 32 mmol/L [facility] Interpretation and review of laboratory results Abnormal [facility] Potassium [Moles/Vol] 5.2 mmol/L High 3.5 - 5.1 mmol/L [facility] Comment on above: Slightly Hemolyzed Protein [Mass/Vol] 6.8 g/dL 6.0 - 8.0 g/dL [facility] Sodium [Moles/Vol] 140 mmol/L 135 - 145 mmol/L [facility] Urea nitrogen [Mass/Vol] 21 mg/dL 8 - 25 mg/dL [facility] Urea nitrogen/Creatinine [Mass ratio] 14.5 mg/mg 10.0 - 20.0 [facility] has implemented the eGFR calculation approach that does not have a coefficient for race that conforms to the NKF-ASN Task Force Recommendations. [facility] ED Procedureon 06-04-2024 ED Procedure EKG 12-lead Date/Time: 06/04/2024 9:39 PM Performed by: Bang Tovar DO Authorized by: Bang Tovar DO Interpreted by ED attending physician Rhythm: sinus rhythm BPM: 70 Conduction: conduction normal ST Segments: ST segments normal T Waves: T waves normal Clinical impression: normal ECG AUTHENTICATED BY BANG TOVAR, ON 06/04/2024 23:36:02 Normal [facility] ED Prov Noteon 06-04-2024 ED Prov Note EMERGENCY MEDICINE PROVIDER NOTE WELCOME TO [facility] NAME: Reema Shah AGE: 48 y.o. SEX: female : 1975 ENCOUNTER DATE: 06/05/24 CSN: [id number] PCP: Jyoti Gupta MD History of Presenting [...] -- -- (more content not included)... Normal [facility] LIPASEon 06-04-2024 Lipase [Catalytic activity/Vol] 66 U/L High 15-65 [facility] Comment on above: Result Comment: Slig htly Hemolyzed Performed By: #### L [id number] #### LAB [address] [place] [address] Ismael Torre M.D. [id number] Lipaseon 06-04-2024 Lipase [Catalytic activity/Vol] 66 U/L High 15 - 65 U/L [facility] Comment on above: Slightly Hemolyzed Lipase [Catalytic activity/V ol]on 06-04-2024 Interpretation and review of laboratory results Abnormal [facility] MANUAL DIFFERENTIALon 2023 BASOPHILS - ABS (DIFF) 0.05 K/mcL Normal 0.00-0.30 [facility] Comment on above: Performed By: #### [id number] #### LAB [address] [place] [address] Ismael Torre M.D. [id number] BASOPHILS - REL (DIFF) 0.8 % Normal [facility] Comment on above: Performed By: #### [id number] #### LAB [address] [place] [address] Ismael Torre M.D. [id number] EOSINOPHILS - ABS (DIFF) 0.00 K/mcL Normal 0.00-0.50 [facility] Comment on above: Performed By: #### [id number] #### LAB [address] [place] [address] Ismael Torre M.D. [id number] EOSINOPHILS - REL (DIFF) 0.0 % Normal [facility] Comment on above: Performed By: #### [id number] #### LAB [address] [place] [address] Ismael Torre M.D. [id number] LYMPHOCYTES - ABS (DIFF) 1.57 K/mcL Normal 0.90-4.00 [facility] Comment on above: Performed By: #### 4 [id number] #### LAB [address] [place] [address] Ismale Torre M.D. [id number] LYMPHOCYTES - REL (DIFF) 26.1 % [facility] Comment on above: Performed By: #### 4 [id number] #### LAB [address] [place] [address] Ismael Torre M.D. [id number] METAMYELOCYTES-REL (DIFF) 0.9 % [facility] Comment on above: Performed By: #### 4 [id number] #### LAB [address] [place] [address] Ismael Torre M.D. [id number] MONOCYTES - ABS (DIFF) 0.37 K/mcL Normal 0.30-0.90 [facility] Comment on above: Performed By: #### 4 [id number] #### LAB [address] [place] [address] Ismael Torre M.D. [id number] MONOCYTES - REL (DIFF) 6.1 % [facility] Comment on above: Performed By: #### 4 [id number] #### LAB [address] [place] [address] Ismael Torre M.D. [id number] NEUTROPHILS - ABS (DIFF) 4.03 K/mcL Normal 1.70-7.00 [facility] Comment on above: Performed By: #### 4 [id number] #### LAB [address] [place] [address] Ismael Torre M.D. [id number] NEUTROPHILS - REL (DIFF) 66.1 % [facility] Comment on above: Performed By: #### 4 [id number] #### LAB [address] [place] [address] Ismael Torre M.D. [id number] MORPHOLOGYon 06-04-2024 PLATELET ESTIMATE Decreased Abnormal Normal [facility] Comment on above: Performed By: #### L [id number] #### [facility] [address] [place], [place] [address] Ismael Torre M.D. [id number] POLY SCAN Few Normal [facility] Comment on above: Performed By: #### L [id number] #### [facility] [address] [place], [place] [address] Ismael Torre M.D. [id number] RBC MORPH SCAN See Comment Normal [facility] Comment on above: Result Comment: RBC Indices confirmed with manual peripheral smear review. Performed By: #### L [id number] #### [facility] [address] [place], [place] [address] Ismael Torre M.D. [id number] Manual Differential panel (B ld)on 06-04-2024 Basophils (Bld) [#/Vol] 0.05 10*3/uL [facility] Basophils/100 WBC (Bld) 0.8 % [facility] Eosinophils (Bld) [#/Vol] 0.00 10*3/uL [facility] Eosinophils/100 WBC (Bld) 0.0 % [facility] Lymphocytes (Bld) [#/Vol] 1.57 10*3/uL [facility] Lymphocytes/100 WBC (Bld) 26.1 % [facility] Metamyelocytes/100 WBC (Bld) 0.9 % [facility] Monocytes (Bld) [#/Vol] 0.37 10*3/uL [facility] Monocytes/100 WBC (Bld) 6.1 % [facility] Neutrophils (Bld) [#/Vol] 4.03 10*3/uL [facility] Neutrophils/100 WBC (Bld) 66.1 % [facility] NT PRO BNPon 06-04-2024 Natriuretic peptide B (Bld) [Mass/Vol] 726 pg/mL High 0-300 [facility] Comment on above: Order Comment: Pride Study Cut-offsRule In:< /= 50 Years >450 pg/mL51 Years - 75 Years >900 pg/mL76 Years - 99 Years >1800 pg/mLRule Out:All patients <300 pg/mL Performed By: #### 4 [id number] #### LAB [address] [place], [place] [address] Ismael Torre M.D. [id number] NT Pro BNPon 06-04-2024 Natriuretic peptide.B prohormone N-Terminal [Mass/Vol] 726 pg/mL High 0 - 300 pg/mL [facility] Natriuretic peptide.B prohor mamie N-Terminal [Mass/Vol]on 06-04-2024 Interpretation and review of laboratory results Abnormal [facility] Pride Study Cut-offs Rule In: < /= 50 Years >450 pg/mL 51 Years - 75 Years >900 pg/mL 76 Years - 99 Years >1800 pg/mL Rule Out: All patients <300 pg/mL [facility] No Panel Informationon 06-04 Interpretation and review of laboratory results Abnormal [facility] Extra Tube Hold for add-ons. [facility] Comment on above: Auto resulted. [facility] TROPONINon 06-04-2024 BASELINE TROPONIN T NG/L 8 ng/L Normal <=14 [facility] Comment on above: Performed By: #### 4 [id number] #### [facility] [address] [place] [address] Ismael Torre M.D. [id number] TROPONIN T INTERPRETATION Normal Normal [facility] Comment on above: Performed By: #### 4 [id number] #### LAB [address] [place], [place] [address] Ismael Torre M.D. [id number] Troponin x 2 (Now and Repeat in 3 hours)on 06-04-2024 Troponin T 8 ng/L NINF - 14 ng/L [facility] Troponin T Interpretation Normal [facility] URINALYSISon 06-04-2024 BACTERIA, URINE None Seen Normal None Seen [facility] Comment on above: Order Comment: Micro scopic examination is performed on all urinalysis samples and only positive findings are reported. The test for blood on the chemical analytic portion of urinalysis may also be positive due to hemoglobinuria and myoglobinuria and if red blood cells are present they are quantified by microscopic examination. Performed By: #### L [id number] #### LAB [address] [place] [address] Ismael Torre M.D. [id number] BILIRUBIN, URINE Negative Normal Negative [facility] Comment on above: Order Comment: Micro scopic examination is performed on all urinalysis samples and only positive findings are reported. The test for blood on the chemical analytic portion of urinalysis may also be positive due to hemoglobinuria and myoglobinuria and if red blood cells are present they are quantified by microscopic examination. Performed By: #### L [id number] #### [facility] [address] [place] [address] Ismael Torre M.D. [id number] BLOOD, URINE Negative Normal Negative [facility] Comment on above: Order Comment: Micro scopic examination is performed on all urinalysis samples and only positive findings are reported. The test for blood on the chemical analytic portion of urinalysis may also be positive due to hemoglobinuria and myoglobinuria and if red blood cells are present they are quantified by microscopic examination. Performed By: #### L [id number] #### [facility] [address] [place] [address] Ismael Torre M.D. [id number] Clarity (U) Clear Normal Clear [facility] Comment on above: Order Comment: Micro scopic examination is performed on all urinalysis samples and only positive findings are reported. The test for blood on the chemical analytic portion of urinalysis may also be positive due to hemoglobinuria and myoglobinuria and if red blood cells are present they are quantified by microscopic examination. Performed By: #### L [id number] #### [facility] [address] [place] [address] Ismael Torre M.D. [id number] Color (U) Colorless Normal Colorless, Yellow [facility] Comment on above: Order Comment: Micro scopic examination is performed on all urinalysis samples and only positive findings are reported. The test for blood on the chemical analytic portion of urinalysis may also be positive due to hemoglobinuria and myoglobinuria and if red blood cells are present they are quantified by microscopic examination. Performed By: #### L [id number] #### [facility] [address] [place] [address] Ismael Torre M.D. [id number] Glucose Ql (U) Negative Normal Negative [facility] Comment on above: Order Comment: Micro scopic examination is performed on all urinalysis samples and only positive findings are reported. The test for blood on the chemical analytic portion of urinalysis may also be positive due to hemoglobinuria and myoglobinuria and if red blood cells are present they are quantified by microscopic examination. Performed By: #### L [id number] #### [facility] [address] [place] [address] Ismael Torre M.D. [id number] Ketones Ql (U) Negative Normal Negative [facility] Comment on above: Order Comment: Micro scopic examination is performed on all urinalysis samples and only positive findings are reported. The test for blood on the chemical analytic portion of urinalysis may also be positive due to hemoglobinuria and myoglobinuria and if red blood cells are present they are quantified by microscopic examination. Performed By: #### L [id number] #### [facility] [address] [place] [address] Ismael Torre M.D. [id number] Leukocyte esterase Test strip Ql (U) Negative Normal Negative [facility] Comment on above: Order Comment: Micro scopic examination is performed on all urinalysis samples and only positive findings are reported. The test for blood on the chemical analytic portion of urinalysis may also be positive due to hemoglobinuria and myoglobinuria and if red blood cells are present they are quantified by microscopic examination. Performed By: #### L [id number] #### [facility] [address] [place] [address] Ismael Torre M.D. [id number] MUCUS, URINE Rare Normal None Seen, Rare [facility] Comment on above: Order Comment: Micro scopic examination is performed on all urinalysis samples and only positive findings are reported. The test for blood on the chemical analytic portion of urinalysis may also be positive due to hemoglobinuria and myoglobinuria and if red blood cells are present they are quantified by microscopic examination. Performed By: #### L [id number] #### [facility] [address] [place] [address] Ismael Torre M.D. [id number] NITRITE, URINE Negative Normal Negative [facility] Comment on above: Order Comment: Micro scopic examination is performed on all urinalysis samples and only positive findings are reported. The test for blood on the chemical analytic portion of urinalysis may also be positive due to hemoglobinuria and myoglobinuria and if red blood cells are present they are quantified by microscopic examination. Performed By: #### L [id number] #### [facility] [address] [place] [address] Ismael Torre M.D. [id number] pH (U) 8.0 [pH] High 5.0-7.0 [facility] Comment on above: Order Comment: Micro scopic examination is performed on all urinalysis samples and only positive findings are reported. The test for blood on the chemical analytic portion of urinalysis may also be positive due to hemoglobinuria and myoglobinuria and if red blood cells are present they are quantified by microscopic examination. Performed By: #### L [id number] #### [facility] [address] [place] [address] Ismael Torre M.D. [id number] PROTEIN, URINE Negative Normal Negative [facility] Comment on above: Order Comment: Micro scopic examination is performed on all urinalysis samples and only positive findings are reported. The test for blood on the chemical analytic portion of urinalysis may also be positive due to hemoglobinuria and myoglobinuria and if red blood cells are present they are quantified by microscopic examination. Performed By: #### L [id number] #### [facility] [address] [place] [address] Ismael Torre M.D. [id number] RBC, URINE < Normal 0-3 [facility] Comment on above: Order Comment: Micro scopic examination is performed on all urinalysis samples and only positive findings are reported. The test for blood on the chemical analytic portion of urinalysis may also be positive due to hemoglobinuria and myoglobinuria and if red blood cells are present they are quantified by microscopic examination. Performed By: #### L [id number] #### [facility] [address] [place] [address] Ismael Torre M.D. [id number] Specific gravity (U) [Rel density] 1.028 High 1.005-1.025 [facility] Comment on above: Order Comment: Micro scopic examination is performed on all urinalysis samples and only positive findings are reported. The test for blood on the chemical analytic portion of urinalysis may also be positive due to hemoglobinuria and myoglobinuria and if red blood cells are present they are quantified by microscopic examination. Performed By: #### L [id number] #### [facility] [address] [place] [address] Ismael Torre M.D. [id number] SQUAMOUS EPITHELIAL 2 /hpf Normal 0-4 [facility] Comment on above: [...] By: #### L [id number] #### [facility] [address] [place] [address] Ismael Torre M.D. [id number] UROBILINOGEN, URINE <2.0 Normal <2.0 [facility] Comment [...] #### L [id number] #### [facility] [address] [address] Ismael Trore M.D. [id number] WBC, URINE < Normal 0-5 [facility] Comment on above: Order Comment: Micro scopic examination is performed on all urinalysis samples and only positive findings are reported. The test for blood on the chemical analytic portion of urinalysis may also be positive due to hemoglobinuria and myoglobinuria and if red blood cells are present they are quantified by microscopic examination. Performed By: #### L [id number] #### [facility] [address] [address] Ismael Torre M.D. [id number] UrinalysisOrdered By: Chang Cates on 06-04-2024 Bacteria Auto Ql (U) None Seen None Se en /hpf [facility] Bilirubin Ql (U) Negative Negative [facility] Clarity Refractometry automated (U) Clear Clear [facility] Color (U) Colorless Colorless, Yellow [facility] Epithelial cells.squamous Auto (Urine sed) [#/Area] 2 [facility] Glucose Auto test strip (U) [Mass/Vol] Negative Negative mg/dL [facility] Hemoglobin Auto test strip Ql (U) Negative Negative [facility] Interpretation and review of laboratory results Abnormal [facility] Ketones (U) [Mass/Vol] Negative Negative mg/dL [facility] Leukocyte esterase Auto test strip Ql (U) Negative Negative [facility] Mucus Auto (Urine sed) [#/Area] Rare None Seen, Rare /lpf [facility] Nitrite Auto test strip Ql (U) Negative Negative [facility] pH (U) 8.0 [pH] High 5.0 - 7.0 [facility] Protein (U) [Mass/Vol] Negative Negative mg/dL [facility] RBC Auto (Urine sed) [#/Area] [facility] Specific gravity (U) [Rel density] 1.028 High 1.005 - 1.025 [facility] Urobilinogen (U) [Mass/Vol] mg/dL NINF - 2.0 mg/dL [facility] WBC Auto (Urine sed) [#/Area] [facility] Microscopic examinat ion is performed on all urinalysis samples and only positive findings are reported. The test for blood on the chemical analytic portion of urinalysis may also be positive due to hemoglobinuria and myoglobinuria and if red blood cells are present they are quantified by microscopic examination. [facility] Office Visiton 05-31-2024 Follow-up visit [id number] Reema Shah 1975 F Date Provider Department Center 05/31/2024 GAYATRI FLORES [facility] [place] None Family History Problem Relation [...] Grandmother Paternal Grandfather Daughter Alive Level of Service:[address] [place] OFFICE/OUTPATIENT NEW MODERATE MDM 45 MINUTES Reason for Visit and Comments: Psoriasis [[id number]] - New Patient (TONI) [facility] Progress Noteon 05-31-2024 Progress Note DATE OF SERVICE: 05/31/2024 PATIENT NAME: Reema Shah : 1975 AGE: 48 y.o. CLINIC NUMBER: [id number] Visit type: New Chief Complaint Patient presents [...] detergent. Patient stated when she lived in [place] that is when the redness got worse and a provider in [place] gave her a solution to put on the areas. 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 Are you , trying [...] on face, armpits, groin. Risks associated with mcfp topical steroid use reviewed in detail. Patient [...] REFERRING MD: [id number] [facility] [address] [facility] BI MAMMO BILATERAL SCREENING TOMOSYNTHESISon 04-27-2024 BI MAMMO BILATERAL SCREENING TOMOSYNTHESIS Interpreted By: Bhupinder Bridges, STUDY: BI MAMMO BILATERAL SCREENING TOMOSYNTHESIS; 04/27/2024 3:15 pm ACCESSION NUMBER(S): [id number] ORDERING CLINICIAN: JEANIE AYALA INDICATION: Screening. COMPARISON: [...] Bhupinder Bridges 04/28/2024 9:57 AM Dictation workstation: [id number] [facility] BASIC METABOLIC PANELon 03-19 Anion gap [Moles/Vol] 16 mmol/L Normal 10-20 Man [facility] Comment on above: Order Comment: [facility] has implemented the eGFR calculation approach that does not have a coefficient for race that conforms to the NKF-ASN Task Force Recommendations. Performed By: #### [id number] #### LAB [address] [place] [address] Ismael Torre M.D. [id number] Calcium [Mass/Vol] 9.2 mg/dL Normal 8.4-10.2 [facility] Comment on above: Order Comment: [facility] has implemented the eGFR calculation approach that does not have a coefficient for race that conforms to the NKF-ASN Task Force Recommendations. Performed By: #### [id number] #### LAB [address] [place], [place] [address] Ismael Torre M.D. [id number] Chloride [Moles/Vol] 103 mmol/L Normal 98-108 [facility] Comment on above: Order Comment: [facility] has implemented the eGFR calculation approach that does not have a coefficient for race that conforms to the NKF-ASN Task Force Recommendations. Performed By: #### [id number] #### [facility] [address] [place], [place] [address] Ismael Torre M.D. [id number] Creatinine [Mass/Vol] 1.43 mg/dL High 0.40-1.10 [facility] Comment on above: Order Comment: [facility] has implemented the eGFR calculation approach that does not have a coefficient for race that conforms to the NKF-ASN Task Force Recommendations. Performed By: #### 4 [id number] #### LAB [address] [place], [place] [address] Ismael Torre M.D. [id number] EGFR 45 mL/min/1.73 m2 Low >=60 [facility] Comment on above: Order Comment: [facility] has implemented the eGFR calculation approach that does not have a coefficient for race that conforms to the NKF-ASN Task Force Recommendations. Result Comment: Frieda mated GFR was calculated using the 2020 CKD-EPI creatinine equation. Performed By: #### [id number] #### [facility] [address] [place], [place] [address] Ismael Torre M.D. [id number] Glucose [Mass/Vol] 81 mg/dL Normal 65-99 [facility] Comment on above: Order Comment: [facility] has implemented the eGFR calculation approach that does not have a coefficient for race that conforms to the NKF-ASN Task Force Recommendations. Performed By: #### 4 [id number] #### LAB [address] [address] Ismael Torre M.D. [id number] HCO3 (Bld) [Moles/Vol] 23 mmol/L Normal 21-32 [facility] Comment on above: Order Comment: [facility] has implemented the eGFR calculation approach that does not have a coefficient for race that conforms to the NKF-ASN Task Force Recommendations. Performed By: #### 4 [id number] #### LAB [address] [address] Ismael Torre M.D. [id number] Potassium [Moles/Vol] 4.4 mmol/L Normal 3.5-5.1 [facility] Comment on above: Order Comment: [facility] has implemented the eGFR calculation approach that does not have a coefficient for race that conforms to the NKF-ASN Task Force Recommendations. Performed By: #### 4 [id number] #### LAB [address] [address] Ismael Torre M.D. [id number] Sodium [Moles/Vol] 138 mmol/L Normal 135-145 [facility] Comment on above: Order Comment: [facility] has implemented the eGFR calculation approach that does not have a coefficient for race that conforms to the NKF-ASN Task Force Recommendations. Performed By: #### 4 [id number] #### [facility] [address] [id number] Ismael Torre M.D. [id number] Urea nitrogen [Mass/Vol] 21 mg/dL Normal 8-25 [facility] Comment on above: Order Comment: [facility] has implemented the eGFR calculation approach that does not have a coefficient for race that conforms to the NKF-ASN Task Force Recommendations. Performed By: #### 4 [id number] #### LAB [address] [id number] Ismael Torre M.D. [id number] Urea nitrogen/Creatinine [Mass ratio] 14.7 mg/mg Normal 10.0-20.0 [facility] Comment on above: Order Comment: [facility] has implemented the eGFR calculation approach that does not have a coefficient for race that conforms to the NKF-ASN Task Force Recommendations. Performed By: #### 4 [id number] #### LAB [address] [place] [address] Ismael Torre M.D. [id number] CBC WITH AUTO DIFFERENTIALon 04-07-2024 AUTO NRBC 0.0 % [facility] Comment on above: Performed By: #### L [id number] #### LAB [address] [place] [address] Ismael Torre M.D. [id number] AUTO NRBC ABS COUNT 0.00 K/mcL Normal 0.00-0.00 [facility] Comment on above: Performed By: #### L [id number] #### LAB [address] [place] [address] Ismael Torre M.D. [id number] BASOPHILS ABSOLUTE COUNT 0.02 K/mcL Normal 0.00-0.30 [facility] Comment on above: Performed By: #### L [id number] #### LAB [address] [place] [address] Ismael Torre M.D. [id number] Basophils/100 WBC (Bld) 0.3 % [facility] Comment on above: Performed By: #### L [id number] #### LAB [address] [place] [address] Ismael Torre M.D. [id number] Eosinophils (Bld) [#/Vol] 0.07 10*3/uL Normal 0.00-0.50 [facility] Comment on above: Performed By: #### L [id number] #### LAB [address] [place] [address] Ismael Torre M.D. [id number] Eosinophils/100 WBC (Bld) 1.0 % [facility] Comment on above: Performed By: #### L [id number] #### [facility] [address] [address] Ismael Torre M.D. [id number] Erythrocyte distribution width (RBC) [Ratio] 13.0 % Normal 11.6-14.8 [facility] Comment on above: Performed By: #### L [id number] #### LAB [address] [address] Ismael Torre M.D. [id number] Hematocrit (Bld) [Volume fraction] 44.7 % Normal 36.0-46.0 [facility] Comment on above: Performed By: #### L [id number] #### LAB [address] [address] Ismael Torre M.D. [id number] Hemoglobin (Bld) [Mass/Vol] 15.1 g/dL Normal 12.0-16.0 [facility] Comment on above: Performed By: #### L [id number] #### LAB [address] [address] Ismael Torre M.D. [id number] IG ABSOLUTE 0.05 K/mcL Normal 0.00-0.30 [facility] Comment on above: Performed By: #### L [id number] #### LAB [address] [place] [address] Ismael Torre M.D. [id number] IG PERCENT 0.70 % Normal [facility] Comment on above: Result Comment: The IG parameter is the percentage of metamyelocytes, myelocytes and promyelocytes. An immature granulocyte count (IG) of 1% or more suggests the possibility of infection, an IG count of 3% is very likely related to an infection. Performed By: #### L [id number] #### LAB [address] [place] [address] Ismael Torre M.D. [id number] Lymphocytes (Bld) [#/Vol] 1.70 10*3/uL Normal 0.90-4.00 [facility] Comment on above: Performed By: #### L [id number] #### LAB [address] [place] [address] Ismael Torre M.D. [id number] Lymphocytes/100 WBC (Bld) 24.3 % Normal [facility] Comment on above: Performed By: #### L [id number] #### LAB [address] [address] Ismael Torre M.D. [id number] MCH (RBC) [Entitic mass] 30.6 pg Normal 26.0-34.0 [facility] Comment on above: Performed By: #### L [id number] #### [facility] [address] [address] Ismael Torre M.D. [id number] MCV (RBC) [Entitic vol] 90.7 fL Normal 80.0-100.0 [facility] Comment on above: Performed By: #### L [id number] #### LAB [address] [address] Ismael Torre M.D. [id number] MEAN CORPUSCULAR HEMOGLOBIN CONC 33.8 g/dL Normal 31.0-37.0 [facility] Comment on above: Performed By: #### L [id number] #### LAB [address] [address] Ismael Torre M.D. [id number] Monocytes (Bld) [#/Vol] 0.49 10*3/uL Normal 0.30-0.90 [facility] Comment on above: Performed By: #### L [id number] #### LAB [address] [address] Ismael Torre M.D. [id number] Monocytes/100 WBC (Bld) 7.0 % Normal [facility] Comment on above: Performed By: #### L [id number] #### LAB [address] [address] Ismael Torre M.D. [id number] NEUTROPHILS ABSOLUTE COUNT 4.68 K/mcL Normal 1.70-7.00 [facility] Comment on above: Performed By: #### L [id number] #### LAB [address] [id number] Ismael Torre M.D. [id number] Neutrophils/100 WBC (Bld) 66.7 % Normal [facility] Comment on above: Performed By: #### L [id number] #### [facility] [address] [address] Ismael Torre M.D. [id number] Platelet mean volume (Bld) [Entitic vol] 10.2 fL Normal 9.4-12.4 [facility] Comment on above: Performed By: #### L [id number] #### [facility] [address] [address] Ismael Torre M.D. [id number] Platelets (Bld) [#/Vol] 132 10*3/uL Low 150-400 [facility] Comment on above: Performed By: #### L [id number] #### [facility] [address] [address] Ismael Torre M.D. [id number] RBC (Bld) [#/Vol] 4.93 10*6/uL Normal 4.00-5.20 [facility] Comment on above: Performed By: #### L [id number] #### [facility] [address] [address] Ismael Torre M.D. [id number] WBC (Bld) [#/Vol] 7.01 10*3/uL Normal 4.50-11.00 [facility] Comment on above: Performed By: #### L [id number] #### [facility] [address] [address] Ismael Torre M.D. [id number] ED Procedureon 04-07-2024 ED Procedure EKG 12-lead Date/Time: 04/07/2024 9:18 AM Performed by: Itzel Dumas MD Authorized by: Itzel Dumas MD Interpreted by ED attending physician Rhythm: sinus rhythm BPM: 93 QRS axis: normal Clinical impression: non-specific ECG Comments: Sinus arrhythmia AUTHENTICATED BY ITZEL DUMAS, ON 04/07/2024 09:19:19 Normal [facility] ED Prov Noteon 04-07-2024 [facility] Attending Note: NAME: Reema Shah 48 y.o. CSN: [id number] PCP: Jyoti Gupta MD History: Chief Complaint: Tremors HPI: The history was obtained from the patient, EMS, and halfway. Reema is a 48 y.o. female who presents with a chief complaint of Tremors. The patient is a 48-year-old female with a history of intentional tremor, epilepsy, nonepileptic seizure activity, who was transferred from her halfway with complaints of jerking motions today. The patient has a history of myoclonic jerking activity and was just hospitalized in mid February for the same complaint. She was evaluated by neurology, thought to have a possible functional component, and discharged back to the halfway. Today the symptoms have not changed. There have been no reported injuries or trauma. The patient is able to speak and ask questions during her shaking episodes here in the emergency department. PMHx: Past Medical History: Diagnosis Date Acquired thrombocytopenia ([facility]) [facility]/Lopez Shaikh Acute kidney injury (HCC) 05/22/2018 [facility]/Jonatan Chiu DO Anxiety Arm abrasion 06/19/2019 INFO GAINED FROM: /[facility] ED VISIT NOTE --- AC GAO MD Calcaneal spur of right foot 2017 Documented on x-ray CKD (chronic kidney disease) Congestive heart failure (CHF) ([facility]) [facility]/Lopez Shaikh Contusion, hip 06/19/2019 INFO GAINED FROM: /[facility] ED VISIT NOTE --- AC GAO MD Depression Epilepsy ([facility]) 08/06/2011 [facility]- Dr. Chopra Epilepsy ([facility]) 1994 Facet degeneration of lumbar region 10/14/2018 [facility]/Jono ALEXIS, Moi Mild facet degenerative changes seen in the lower lumbar spine Fatty liver [facility]/Joe Mendieta MD Mild fibrofatty changes of the liver Fluid collection (edema) in the arms, legs, hands and feet 03/09/2018 Dr valentina Chopra Gastritis determined by endoscopy 12/29/2016 Dr. GonzalezOistav-Wvtcyetib-rmfjwd forated nonbleeding with biopsy 1 para 1 Hepatic steatosis [facility]/Heidy Jara MD Mild Hiatal hernia 12/29/[address] Lobo grade 4 Hypercholesterolemia [facility]/Jonatan Chiu DO Hypertension 2000 2000-present Insomnia [facility]/Lopez Shaikh Kidney stone [facility]/Lopez Shaikh Laceration of head 06/19/2019 INFO GAINED FROM: /[facility] ED VISIT NOTE --- MURRAY ALEXIS,AC A Lung nodule 12/15/2017 0.5 cm pleural based nodule in right middle lobe. Mild linear atelectasis Mitral valve prolapse [facility]/Lopez Shaikh Motor seizure (HCC) 03/16/2019 INFO GAINED FROM: /[facility] ED VISIT --- MUKUL STEELECAREN Rectus diastasis [facility]/Heidy Jara MD Present with small wide necked perumbical ventral containing fat. Second degree burn of foot 04/23/2018 Right Foot - [facility] Sleep apnea Stroke (HCC) 2000 mild Tremor PMSx: Past Surgical History: Procedure Laterality Date Conner pH capsule placement 02/01/2017 Dr. Lobo BREAST REDUCTION 2000 bilateral EGD 12/29/2016 Dr. Lobo-[facility] Central-grade 4 hiatal hernia-nonperforating gastritis ESOPHAGEAL MANOMETRY 02/01/2017 HERNIA REPAIR 06/11/2017 Dr Richards INTRAUTERINE DEVICE INSERTION 02/15/2015 Dr. Pennie Meyers OBJAMARN Laparoscopic LINX sphincter augmentation with cruroplasty 06/11/2017 [...] Medications Medica (more content not included)... Normal [facility] MAGNESIUM LEVELon 04-07-2024 Magnesium [Mass/Vol] 1.8 mg/dL Normal 1.6-2.4 [facility] Comment on above: Performed By: #### L [id number] #### [facility] [address] [address] Ismael Torre M.D. [id number] URINALYSISon 04-07-2024 BACTERIA, URINE None Seen Normal None Seen [facility] Comment on above: Order Comment: Micro scopic examination is performed on all urinalysis samples and only positive findings are reported. The test for blood on the chemical analytic portion of urinalysis may also be positive due to hemoglobinuria and myoglobinuria and if red blood cells are present they are quantified by microscopic examination. Performed By: #### L [id number] #### [facility] [address] [place], [place] [address] Ismael Torre M.D. [id number] BILIRUBIN, URINE Negative Normal Negative [facility] Comment on above: Order Comment: Micro scopic examination is performed on all urinalysis samples and only positive findings are reported. The test for blood on the chemical analytic portion of urinalysis may also be positive due to hemoglobinuria and myoglobinuria and if red blood cells are present they are quantified by microscopic examination. Performed By: #### L [id number] #### [facility] [address] [id number] Ismael Torre M.D. [id number] BLOOD, URINE Negative Normal Negative [facility] Comment on above: Order Comment: Micro scopic examination is performed on all urinalysis samples and only positive findings are reported. The test for blood on the chemical analytic portion of urinalysis may also be positive due to hemoglobinuria and myoglobinuria and if red blood cells are present they are quantified by microscopic examination. Performed By: #### L [id number] #### [facility] [address] [id number] Ismael Torre M.D. [id number] Clarity (U) Clear Normal Clear [facility] Comment on above: Order Comment: Micro scopic examination is performed on all urinalysis samples and only positive findings are reported. The test for blood on the chemical analytic portion of urinalysis may also be positive due to hemoglobinuria and myoglobinuria and if red blood cells are present they are quantified by microscopic examination. Performed By: #### L [id number] #### [facility] [address] [address] Ismael Torre M.D. [id number] Color (U) Yellow Normal Colorless, Yellow [facility] Comment on above: Order Comment: Micro scopic examination is performed on all urinalysis samples and only positive findings are reported. The test for blood on the chemical analytic portion of urinalysis may also be positive due to hemoglobinuria and myoglobinuria and if red blood cells are present they are quantified by microscopic examination. Performed By: #### L [id number] #### [facility] [address] [address] Ismael Torre M.D. [id number] Glucose Ql (U) Negative Normal Negative [facility] Comment on above: Order Comment: Micro scopic examination is performed on all urinalysis samples and only positive findings are reported. The test for blood on the chemical analytic portion of urinalysis may also be positive due to hemoglobinuria and myoglobinuria and if red blood cells are present they are quantified by microscopic examination. Performed By: #### L [id number] #### [facility] [address] [id number] Ismael Torre M.D. [id number] Hyaline casts LM Ql (Urine sed) 0-2 Normal 0-2 [facility] Comment on above: Order Comment: Micro scopic examination is performed on all urinalysis samples and only positive findings are reported. The test for blood on the chemical analytic portion of urinalysis may also be positive due to hemoglobinuria and myoglobinuria and if red blood cells are present they are quantified by microscopic examination. Performed By: #### L [id number] #### [facility] [address] [id number] Ismael Torre M.D. [id number] Ketones Ql (U) Negative Normal Negative [facility] Comment on above: Order Comment: Micro scopic examination is performed on all urinalysis samples and only positive findings are reported. The test for blood on the chemical analytic portion of urinalysis may also be positive due to hemoglobinuria and myoglobinuria and if red blood cells are present they are quantified by microscopic examination. Performed By: #### L [id number] #### [facility] [address] [address] Ismael Torre M.D. [id number] Leukocyte esterase Test strip Ql (U) Small Abnormal Negative [facility] Comment on above: Order Comment: Micro scopic examination is performed on all urinalysis samples and only positive findings are reported. The test for blood on the chemical analytic portion of urinalysis may also be positive due to hemoglobinuria and myoglobinuria and if red blood cells are present they are quantified by microscopic examination. Performed By: #### L [id number] #### [facility] [address] [address] Ismael Torre M.D. [id number] MUCUS, URINE Rare Normal None Seen, Rare [facility] Comment on above: Order Comment: Micro scopic examination is performed on all urinalysis samples and only positive findings are reported. The test for blood on the chemical analytic portion of urinalysis may also be positive due to hemoglobinuria and myoglobinuria and if red blood cells are present they are quantified by microscopic examination. Performed By: #### L [id number] #### [facility] [address] [address] Ismael Torre M.D. [id number] NITRITE, URINE Negative Normal [facility] Comment on above: Order Comment: Micro scopic examination is performed on all urinalysis samples and only positive findings are reported. The test for blood on the chemical analytic portion of urinalysis may also be positive due to hemoglobinuria and myoglobinuria and if red blood cells are present they are quantified by microscopic examination. Performed By: #### L [id number] #### [facility] [address] [place], [place] [address] Ismael Torre M.D. [id number] pH (U) 5.5 [pH] Normal 5.0-7.0 [facility] Comment on above: Order Comment: Micro scopic examination is performed on all urinalysis samples and only positive findings are reported. The test for blood on the chemical analytic portion of urinalysis may also be positive due to hemoglobinuria and myoglobinuria and if red blood cells are present they are quantified by microscopic examination. Performed By: #### L [id number] #### [facility] [address] [id number] Ismael Torre M.D. [id number] PROTEIN, URINE Negative Normal Negative [facility] Comment on above: Order Comment: Micro scopic examination is performed on all urinalysis samples and only positive findings are reported. The test for blood on the chemical analytic portion of urinalysis may also be positive due to hemoglobinuria and myoglobinuria and if red blood cells are present they are quantified by microscopic examination. Performed By: #### L [id number] #### [facility] [address] [id number] Ismael Torre M.D. [id number] RBC LM.HPF (Urine sed) [#/Area] 1 /[HPF] Normal 0-3 [facility] Comment on above: Order Comment: Micro scopic examination is performed on all urinalysis samples and only positive findings are reported. The test for blood on the chemical analytic portion of urinalysis may also be positive due to hemoglobinuria and myoglobinuria and if red blood cells are present they are quantified by microscopic examination. Performed By: #### L [id number] #### [facility] [address] [id number] Ismael Torre M.D. [id number] Specific gravity (U) [Rel density] 1.022 Normal 1.005-1.025 [facility] Comment on above: Order Comment: Micro scopic examination is performed on all urinalysis samples and only positive findings are reported. The test for blood on the chemical analytic portion of urinalysis may also be positive due to hemoglobinuria and myoglobinuria and if red blood cells are present they are quantified by microscopic examination. Performed By: #### L [id number] #### [facility] [address] [address] Ismael Torre M.D. [id number] SQUAMOUS EPITHELIAL 14 /hpf High 0-4 [facility] Comment on above: [...] #### L [id number] #### [facility] [address] [address] Ismael Torre M.D. [id number] UROBILINOGEN, URINE <2.0 Normal <2.0 [facility] Comment [...] #### L [id number] #### [facility] [address] [address] Ismael Torre M.D. [id number] WBC LM.HPF (Urine sed) [#/Area] 1 /[HPF] Normal 0-5 [facility] Comment on above: Order Comment: Micro scopic examination is performed on all urinalysis samples and only positive findings are reported. The test for blood on the chemical analytic portion of urinalysis may also be positive due to hemoglobinuria and myoglobinuria and if red blood cells are present they are quantified by microscopic examination. Performed By: #### L [id number] #### [facility] [address] [address] Ismael Torre M.D. [id number] URINE AEROBIC CULTUREon 03-19 URINE AEROBIC CULTURE URINE CULTURE < 10,000 CFU/mL of normal urogenital microbiota Normal [facility] Comment on above: Performed By: #### 4 [id number] #### LAB [address] [address] Ismael Torre M.D. [id number] AMMONIAon 03-05-2024 AMMONIA 30 micromol/L Normal 12-47 [facility] Comment on above: Performed By: #### 4 [id number] #### LAB [address] [address] Ismael Torre M.D. [id number] CBC WITH AUTO DIFFERENTIALon 03-05-2024 AUTO NRBC 0.0 % Normal [facility] Comment on above: Performed By: #### L [id number] #### LAB [address] [address] Ismael Torre M.D. [id number] AUTO NRBC ABS COUNT 0.00 K/mcL Normal 0.00-0.00 [facility] Comment on above: Performed By: #### L [id number] #### LAB [address] [address] Ismael Torre M.D. [id number] Erythrocyte distribution width (RBC) [Ratio] 12.6 % Normal 11.6-14.8 [facility] Comment on above: Performed By: #### L [id number] #### LAB [address] [address] Ismael Torre M.D. [id number] Hematocrit (Bld) [Volume fraction] 36.4 % Normal 36.0-46.0 [facility] Comment on above: Performed By: #### L [id number] #### [facility] [address] [address] Ismael Torre M.D. [id number] Hemoglobin (Bld) [Mass/Vol] 12.4 g/dL Normal 12.0-16.0 [facility] Comment on above: Performed By: #### L [id number] #### [facility] [address] [address] Ismael Torre M.D. [id number] MCH (RBC) [Entitic mass] 31.4 pg Normal 26.0-34.0 [facility] Comment on above: Performed By: #### L [id number] #### LAB [address] [address] Ismael Torre M.D. [id number] MCV (RBC) [Entitic vol] 92.2 fL Normal 80.0-100.0 [facility] Comment on above: Performed By: #### L [id number] #### LAB [address] [address] Ismael Torre M.D. [id number] MEAN CORPUSCULAR HEMOGLOBIN CONC 34.1 g/dL Normal 31.0-37.0 [facility] Comment on above: Performed By: #### L [id number] #### LAB [address] [address] Ismael Torre M.D. [id number] Platelet mean volume (Bld) [Entitic vol] 10.5 fL Normal 9.4-12.4 [facility] Comment on above: Performed By: #### L [id number] #### LAB [address] [address] Ismael Torre M.D. [id number] Platelets (Bld) [#/Vol] 90 10*3/uL Low 150-400 [facility] Comment on above: Performed By: #### L [id number] #### LAB [address] [place] [address] Ismael Torre M.D. [id number] RBC (Bld) [#/Vol] 3.95 10*6/uL Low 4.00-5.20 [facility] Comment on above: Performed By: #### L [id number] #### LAB [address] [address] Ismael Torre M.D. [id number] WBC (Bld) [#/Vol] 5.16 10*3/uL Normal 4.50-11.00 [facility] Comment on above: Performed By: #### L [id number] #### [facility] [address] [place], [place] [address] Ismael Torre M.D. [id number] CONSULTon 03-05-2024 CONSULT Neurology Inpatient Consult [facility] Date of Service: 03/05/24 Admit Date: 03/04/2024 Service Type: New Patient Consultation Patient: Reema Shah Date of : 1975 (48 y.o.) Referring Provider: Refer to consult order in electronic medical record Assessment ASSESSMENT: Reema Shah is a 48 y.o. female who presented to [facility] on 03/04/2024 with jerking movements Patient [...] reports having a prior EMU stay in [place] a few years ago, but I do not see any sign of that in the records from [facility], , or [facility], which are the only places I know of with EMU capacity in the [place] area. She says it characterized her seizures [...] while here. Marzena Gresham MD Staff Neurologist [facility] [address], [facility]# [id number], [facility] [address] [facility] 03/05/24 Parts of this note may have been dictated using [employer], a speech-recognition software. Syntax errors and sound-alike [...] GTC activity. Follows with Dr. Gillette in [place]. Has been using Depakote and Keppra for [...] got an EMU stay years ago in [place] and it described her seizures as grand mal. There is a chart history of pseudoseizures but I don't have an (more content not included)... Normal [facility] HEMOGLOBIN A1Con 03-05-2024 Glucose [Mass/Vol] 103 mg/dL Normal 74-114 [facility] Comment on above: Performed By: #### L [id number] #### LAB [address] [address] Ismael Torre M.D. [id number] HbA1c (Bld) [Mass fraction] 5.2 % Normal 4.2-5.6 [facility] Comment on above: Performed By: #### L [id number] #### [facility] [address] [address] Ismael Torre M.D. [id number] MAGNESIUM LEVELon 03-05-2024 Magnesium [Mass/Vol] 1.8 mg/dL Normal 1.6-2.4 [facility] Comment on above: Performed By: #### L [id number] #### [facility] [address] [address] Ismael Torre M.D. [id number] MANUAL DIFFERENTIALon 2023 BASOPHILS - ABS (DIFF) 0.00 K/mcL Normal 0.00-0.30 [facility] Comment on above: Performed By: #### 4 [id number] #### LAB [address] [address] Ismael Torre M.D. [id number] BASOPHILS - REL (DIFF) 0.0 % [facility] Comment on above: Performed By: #### 4 [id number] #### LAB [address] [address] Ismael Torre M.D. [id number] EOSINOPHILS - ABS (DIFF) 0.00 K/mcL Normal 0.00-0.50 [facility] Comment on above: Performed By: #### 4 [id number] #### LAB [address] [address] Ismael Torre M.D. [id number] EOSINOPHILS - REL (DIFF) 0.0 % [facility] Comment on above: Performed By: #### 4 [id number] #### LAB [address] [place] [address] Ismael Torre M.D. [id number] LYMPHOCYTE ATYPICAL - REL (DIFF) 1.7 % [facility] Comment on above: Performed By: #### 4 7636 #### LAB [address] [place] [address] Ismael Torre M.D. [id number] LYMPHOCYTES - ABS (DIFF) 1.47 K/mcL Normal 0.90-4.00 [facility] Comment on above: Performed By: #### 4 [id number] #### LAB [address] [place] [address] Ismael Torre M.D. [id number] LYMPHOCYTES - REL (DIFF) 26.7 % [facility] Comment on above: Performed By: #### 4 3842 #### LAB [address] [address] Ismael Torre M.D. [id number] METAMYELOCYTES-REL (DIFF) 0.9 % [facility] Comment on above: Performed By: #### 4 4201 #### LAB [address] [place] [address] Ismael Torre M.D. [id number] MONOCYTES - ABS (DIFF) 0.49 K/mcL Normal 0.30-0.90 [facility] Comment on above: Performed By: #### 4 7860 #### LAB [address] [id number] Ismael Torre M.D. [id number] MONOCYTES - REL (DIFF) 9.5 % [facility] Comment on above: Performed By: #### 4 [id number] #### LAB [address] [address] Ismael Torre M.D. [id number] NEUTROPHILS - ABS (DIFF) 3.20 K/mcL Normal 1.70-7.00 [facility] Comment on above: Performed By: #### 4 [id number] #### LAB [address] [address] Ismael Torre M.D. [id number] NEUTROPHILS - REL (DIFF) 61.2 % [facility] Comment on above: Performed By: #### 4 [id number] #### LAB [address] [address] Ismael Torre M.D. [id number] NUCLEATED RBC ABSOLUTE COUNT 0.05 K/mcL High 0.00-0.00 [facility] Comment on above: Performed By: #### 4 [id number] #### LAB [address] [address] Ismael Torre M.D. [id number] NUCLEATED RED BLOOD CELLS 1 % [facility] Comment on above: Performed By: #### 4 [id number] #### LAB [address] [address] Ismael Torre M.D. [id number] MORPHOLOGYon 03-05-2024 OVAL SCAN Few [facility] Comment on above: Performed By: #### L [id number] #### [facility] [address] [address] Ismael Torre M.D. [id number] POLY SCAN Moderate Normal [facility] Comment on above: Performed By: #### L [id number] #### LAB [address] [address] Ismael Torre M.D. [id number] RBC MORPH SCAN See Comment Normal [facility] Comment on above: Result Comment: RBC Indices confirmed with manual peripheral smear review. Performed By: #### L [id number] #### [facility] [address] [place], [place] [address] Ismael Torre M.D. [id number] PT/INRon 03-05-2024 INR Coag (PPP) [Relative time] 1.1 {INR} Normal 0.8-1.1 [facility] Comment on above: Order Comment: Rigoberto teran the induction phase of oral anticoagulation, the INR may not reflect the anticoagulation status of the patient. Therapeutic ranges for INR's are:Most clinical situations: INR 2.0-3.0Mechanical Prosthetic Valve: INR 2.5-3.5Critical: INR >5.0 Performed By: #### L [id number] #### [facility] [address] [place], [place] [address] Ismael Torre M.D. [id number] PT Coag (PPP) [Time] 13.8 s Normal 11.8-14.3 [facility] Comment on above: Order Comment: Rigoberto teran the induction phase of oral anticoagulation, the INR may not reflect the anticoagulation status of the patient. Therapeutic ranges for INR's are:Most clinical situations: INR 2.0-3.0Mechanical Prosthetic Valve: INR 2.5-3.5Critical: INR >5.0 Performed By: #### L [id number] #### LAB [address] [place], [place] [address] Ismael Torre M.D. [id number] RENAL FUNCTION PANELon 03-05 Albumin [Mass/Vol] 3.6 g/dL Normal 3.2-5.2 [facility] Comment on above: Order Comment: [facility] has implemented the eGFR calculation approach that does not have a coefficient for race that conforms to the NKF-ASN Task Force Recommendations. Performed By: #### 4 6449 #### [facility] [address] [place], [place] [address] Ismael Torre M.D. [id number] Anion gap [Moles/Vol] 15 mmol/L Normal 10-20 [facility] Comment on above: Order Comment: [facility] has implemented the eGFR calculation approach that does not have a coefficient for race that conforms to the NKF-ASN Task Force Recommendations. Performed By: #### 4 6449 #### LAB [address] [address] Ismael Torre M.D. [id number] Calcium [Mass/Vol] 8.8 mg/dL Normal 8.4-10.2 [facility] Comment on above: Order Comment: [facility] has implemented the eGFR calculation approach that does not have a coefficient for race that conforms to the NKF-ASN Task Force Recommendations. Performed By: #### 4 6449 #### LAB [address] [address] Ismael Torre M.D. [id number] Chloride [Moles/Vol] 104 mmol/L Normal 98-108 [facility] Comment on above: Order Comment: [facility] has implemented the eGFR calculation approach that does not have a coefficient for race that conforms to the NKF-ASN Task Force Recommendations. Performed By: #### 4 6449 #### LAB [address] [address] Ismael Torre M.D. [id number] Creatinine [Mass/Vol] 1.15 mg/dL High 0.40-1.10 [facility] Comment on above: Order Comment: [facility] has implemented the eGFR calculation approach that does not have a coefficient for race that conforms to the NKF-ASN Task Force Recommendations. Performed By: #### 4 6449 #### LAB [address] [address] Ismael Torre M.D. [id number] EGFR 58 mL/min/1.73 m2 Low >=60 [facility] Comment on above: Order Comment: [facility] has implemented the eGFR calculation approach that does not have a coefficient for race that conforms to the NKF-ASN Task Force Recommendations. Result Comment: Frieda mated GFR was calculated using the 2020 CKD-EPI creatinine equation. Performed By: #### 4 6449 #### LAB [address] [address] Ismael Torre M.D. [id number] Glucose [Mass/Vol] 90 mg/dL Normal 65-99 [facility] Comment on above: Order Comment: [facility] has implemented the eGFR calculation approach that does not have a coefficient for race that conforms to the NKF-ASN Task Force Recommendations. Performed By: #### 4 6449 #### LAB [address] [address] Ismael Torre M.D. [id number] HCO3 (Bld) [Moles/Vol] 25 mmol/L Normal 21-32 [facility] Comment on above: Order Comment: [facility] has implemented the eGFR calculation approach that does not have a coefficient for race that conforms to the NKF-ASN Task Force Recommendations. Performed By: #### 4 6449 #### LAB [address] [address] Ismael Torre M.D. [id number] Phosphate [Mass/Vol] 2.7 mg/dL Normal 2.7-4.5 [facility] Comment on above: Order Comment: [facility] has implemented the eGFR calculation approach that does not have a coefficient for race that conforms to the NKF-ASN Task Force Recommendations. Performed By: #### 4 6449 #### LAB [address] [address] Ismael Torre M.D. [id number] Potassium [Moles/Vol] 3.7 mmol/L Normal 3.5-5.1 [facility] Comment on above: Order Comment: [facility] has implemented the eGFR calculation approach that does not have a coefficient for race that conforms to the NKF-ASN Task Force Recommendations. Performed By: #### 4 6449 #### LAB [address] [address] Ismael Torre M.D. [id number] Sodium [Moles/Vol] 140 mmol/L Normal 135-145 [facility] Comment on above: Order Comment: [facility] has implemented the eGFR calculation approach that does not have a coefficient for race that conforms to the NKF-ASN Task Force Recommendations. Performed By: #### 4 6449 #### [facility] [address] [address] Ismael Torre M.D. [id number] Urea nitrogen [Mass/Vol] 23 mg/dL Normal 8-25 [facility] Comment on above: Order Comment: [facility] has implemented the eGFR calculation approach that does not have a coefficient for race that conforms to the NKF-ASN Task Force Recommendations. Performed By: #### 4 6449 #### [facility] [address] [address] Ismael Torre M.D. [id number] Urea nitrogen/Creatinine [Mass ratio] 20.0 mg/mg Normal 10.0-20.0 [facility] Comment on above: Order Comment: [facility] has implemented the eGFR calculation approach that does not have a coefficient for race that conforms to the NKF-ASN Task Force Recommendations. Performed By: #### 4 6449 #### [facility] [address] [address] Ismael Torre M.D. [id number] TSHon 03-05-2024 TSH Qn 3.38 m[IU]/L Normal 0.27-4.20 [facility] Comment on above: Performed By: #### L [id number] #### [facility] [address] [address] Ismael Torre M.D. [id number] ALCOHOL, MEDICALon ALCOHOL MEDICAL < Normal <10.0 [facility] Comment on above: Result Comment: Alco hol cutoff: <10.00 mg/dL = None Detected Performed By: #### L [id number] #### [facility] [address] [address] Ismael Torre M.D. [id number] CBC WITH AUTO DIFFERENTIALon 03-04-2024 AUTO NRBC 0.0 % Normal [facility] Comment on above: Performed By: #### L [id number] #### [facility] [address] [address] Ismael Torre M.D. [id number] AUTO NRBC ABS COUNT 0.00 K/mcL Normal 0.00-0.00 [facility] Comment on above: Performed By: #### L [id number] #### LAB [address] [address] Ismael Torre M.D. [id number] BASOPHILS ABSOLUTE COUNT 0.02 K/mcL Normal 0.00-0.30 [facility] Comment on above: Performed By: #### L [id number] #### LAB [address] [address] Ismael Torre M.D. [id number] Basophils/100 WBC (Bld) 0.3 % Normal [facility] Comment on above: Performed By: #### L [id number] #### LAB [address] [address] Ismael Torre M.D. [id number] Eosinophils (Bld) [#/Vol] 0.06 10*3/uL Normal 0.00-0.50 [facility] Comment on above: Performed By: #### L [id number] #### LAB [address] [place] [address] Ismael Torre M.D. [id number] Eosinophils/100 WBC (Bld) 0.9 % Normal [facility] Comment on above: Performed By: #### L [id number] #### LAB [address] [place] [address] Ismael Torre M.D. [id number] Erythrocyte distribution width (RBC) [Ratio] 12.6 % Normal 11.6-14.8 [facility] Comment on above: Performed By: #### L [id number] #### LAB [address] [place] [address] Ismael Torre M.D. [id number] Hematocrit (Bld) [Volume fraction] 42.9 % Normal 36.0-46.0 [facility] Comment on above: Performed By: #### L [id number] #### LAB [address] [place] [address] Ismael Torre M.D. [id number] Hemoglobin (Bld) [Mass/Vol] 14.6 g/dL Normal 12.0-16.0 [facility] Comment on above: Performed By: #### L [id number] #### [facility] [address] [address] Ismael Torre M.D. [id number] IG ABSOLUTE 0.06 K/mcL Normal 0.00-0.30 [facility] Comment on above: Performed By: #### L [id number] #### [facility] [address] [address] Ismael Torre M.D. [id number] IG PERCENT 0.90 % Normal [facility] Comment on above: Result Comment: The IG parameter is the percentage of metamyelocytes, myelocytes and promyelocytes. An immature granulocyte count (IG) of 1% or more suggests the possibility of infection, an IG count of 3% is very likely related to an infection. Performed By: #### L [id number] #### LAB [address] [address] Ismael Torre M.D. [id number] Lymphocytes (Bld) [#/Vol] 1.60 10*3/uL Normal 0.90-4.00 [facility] Comment on above: Performed By: #### L [id number] #### LAB [address] [address] Ismael Torre M.D. [id number] Lymphocytes/100 WBC (Bld) 23.8 % Normal [facility] Comment on above: Performed By: #### L [id number] #### [facility] [address] [address] Ismael Torre M.D. [id number] MCH (RBC) [Entitic mass] 30.7 pg Normal 26.0-34.0 [facility] Comment on above: Performed By: #### L [id number] #### [facility] [address] [address] Ismael Torre M.D. [id number] MCV (RBC) [Entitic vol] 90.3 fL Normal 80.0-100.0 [facility] Comment on above: Performed By: #### L [id number] #### LAB [address] [address] Ismael Torre M.D. [id number] MEAN CORPUSCULAR HEMOGLOBIN CONC 34.0 g/dL Normal 31.0-37.0 [facility] Comment on above: Performed By: #### L [id number] #### LAB [address] [address] Ismael Torre M.D. [id number] Monocytes (Bld) [#/Vol] 0.46 10*3/uL Normal 0.30-0.90 [facility] Comment on above: Performed By: #### L [id number] #### LAB [address] [address] Ismael Torre M.D. [id number] Monocytes/100 WBC (Bld) 6.8 % Normal [facility] Comment on above: Performed By: #### L [id number] #### LAB [address] [address] Ismael Torre M.D. [id number] NEUTROPHILS ABSOLUTE COUNT 4.52 K/mcL Normal 1.70-7.00 [facility] Comment on above: Performed By: #### L [id number] #### LAB [address] [place] [address] Ismael Torre M.D. [id number] Neutrophils/100 WBC (Bld) 67.3 % Normal [facility] Comment on above: Performed By: #### L [id number] #### LAB [address] [address] Ismael Torre M.D. [id number] Platelet mean volume (Bld) [Entitic vol] 10.8 fL Normal 9.4-12.4 [facility] Comment on above: Performed By: #### L [id number] #### LAB [address] [place] [address] Ismael Torre M.D. [id number] Platelets (Bld) [#/Vol] 127 10*3/uL Low 150-400 [facility] Comment on above: Performed By: #### L [id number] #### LAB [address] [address] Ismael Torre M.D. [id number] RBC (Bld) [#/Vol] 4.75 10*6/uL Normal 4.00-5.20 [facility] Comment on above: Performed By: #### L [id number] #### [facility] [address] [address] Ismael Torre M.D. [id number] WBC (Bld) [#/Vol] 6.72 10*3/uL Normal 4.50-11.00 [facility] Comment on above: Performed By: #### L [id number] #### LAB [address] [address] Ismael Torre M.D. [id number] COMPREHENSIVE [facility]AB[facility] 03-04-2024 Albumin [Mass/Vol] 4.4 g/dL Normal 3.2-5.2 [facility] Comment on above: Order Comment: [facility] has implemented the eGFR calculation approach that does not have a coefficient for race that conforms to the NKF-ASN Task Force Recommendations. Performed By: #### L [id number] #### LAB [address] [address] Ismael Torre M.D. [id number] ALP [Catalytic activity/Vol] 102 U/L Normal 40-150 [facility] Comment on above: Order Comment: [facility] has implemented the eGFR calculation approach that does not have a coefficient for race that conforms to the NKF-ASN Task Force Recommendations. Performed By: #### L [id number] #### LAB [address] [address] Ismael Torre M.D. [id number] ALT [Catalytic activity/Vol] 29 U/L Normal 0-35 U/L [facility] Comment on above: Order Comment: [facility] has implemented the eGFR calculation approach that does not have a coefficient for race that conforms to the NKF-ASN Task Force Recommendations. Performed By: #### L [id number] #### [facility] [address] [address] Ismael Torre M.D. [id number] Anion gap [Moles/Vol] 17 mmol/L Normal 10-20 [facility] Comment on above: Order Comment: [facility] has implemented the eGFR calculation approach that does not have a coefficient for race that conforms to the NKF-ASN Task Force Recommendations. Performed By: #### L [id number] #### [facility] [address] [address] Ismael Torre M.D. [id number] AST [Catalytic activity/Vol] 43 U/L High 0-35 U/L [facility] Comment on above: Order Comment: [facility] has implemented the eGFR calculation approach that does not have a coefficient for race that conforms to the NKF-ASN Task Force Recommendations. Performed By: #### L [id number] #### LAB [address] [address] Ismael Torre M.D. [id number] Bilirubin [Mass/Vol] 0.2 mg/dL Normal 0.0-1.3 [facility] Comment on above: Order Comment: [facility] has implemented the eGFR calculation approach that does not have a coefficient for race that conforms to the NKF-ASN Task Force Recommendations. Performed By: #### L [id number] #### [facility] [address] [address] Ismael Torre M.D. [id number] Calcium [Mass/Vol] 9.8 mg/dL Normal 8.4-10.2 [facility] Comment on above: Order Comment: [facility] has implemented the eGFR calculation approach that does not have a coefficient for race that conforms to the NKF-ASN Task Force Recommendations. Performed By: #### L [id number] #### [facility] [address] [address] Ismael Torre M.D. [id number] Chloride [Moles/Vol] 104 mmol/L Normal 98-108 [facility] Comment on above: Order Comment: [facility] has implemented the eGFR calculation approach that does not have a coefficient for race that conforms to the NKF-ASN Task Force Recommendations. Performed By: #### L [id number] #### [facility] [address] [place], [place] [address] Ismael Torre M.D. [id number] Creatinine [Mass/Vol] 1.52 mg/dL High 0.40-1.10 [facility] Comment on above: Order Comment: [facility] has implemented the eGFR calculation approach that does not have a coefficient for race that conforms to the NKF-ASN Task Force Recommendations. Performed By: #### L [id number] #### [facility] [address] [address] Ismael Torre M.D. [id number] EGFR 42 mL/min/1.73 m2 Low >=60 [facility] Comment on above: Order Comment: [facility] has implemented the eGFR calculation approach that does not have a coefficient for race that conforms to the NKF-ASN Task Force Recommendations. Result Comment: Frieda mated GFR was calculated using the 2020 CKD-EPI creatinine equation. Performed By: #### L [id number] #### [facility] [address] [place], [place] [address] Ismael Torre M.D. [id number] Glucose [Mass/Vol] 114 mg/dL High 65-99 [facility] Comment on above: Order Comment: [facility] has implemented the eGFR calculation approach that does not have a coefficient for race that conforms to the NKF-ASN Task Force Recommendations. Performed By: #### L [id number] #### [facility] [address] [id number] Ismael Torre M.D. [id number] HCO3 (Bld) [Moles/Vol] 22 mmol/L Normal 21-32 [facility] Comment on above: Order Comment: [facility] has implemented the eGFR calculation approach that does not have a coefficient for race that conforms to the NKF-ASN Task Force Recommendations. Performed By: #### L [id number] #### [facility] [address] [address] Ismael Torre M.D. [id number] Potassium [Moles/Vol] 5.0 mmol/L Normal 3.5-5.1 [facility] Comment on above: Order Comment: [facility] has implemented the eGFR calculation approach that does not have a coefficient for race that conforms to the NKF-ASN Task Force Recommendations. Performed By: #### L [id number] #### [facility] [address] [address] Ismael Torre M.D. [id number] Protein [Mass/Vol] 7.0 g/dL Normal 6.0-8.0 [facility] Comment on above: Order Comment: [facility] has implemented the eGFR calculation approach that does not have a coefficient for race that conforms to the NKF-ASN Task Force Recommendations. Performed By: #### L [id number] #### [facility] [address] [address] Ismael Torre M.D. [id number] Sodium [Moles/Vol] 138 mmol/L Normal 135-145 [facility] Comment on above: Order Comment: [facility] has implemented the eGFR calculation approach that does not have a coefficient for race that conforms to the NKF-ASN Task Force Recommendations. Performed By: #### L [id number] #### [facility] [address] [address] Ismael Torre M.D. [id number] Urea nitrogen [Mass/Vol] 31 mg/dL High 8-25 [facility] Comment on above: Order Comment: [facility] has implemented the eGFR calculation approach that does not have a coefficient for race that conforms to the NKF-ASN Task Force Recommendations. Performed By: #### L [id number] #### [facility] [address] [id number] Ismael Torre M.D. [id number] Urea nitrogen/Creatinine [Mass ratio] 20.4 mg/mg High 10.0-20.0 [facility] Comment on above: Order Comment: [facility] has implemented the eGFR calculation approach that does not have a coefficient for race that conforms to the NKF-ASN Task Force Recommendations. Performed By: #### L [id number] #### [facility] [address] [address] Ismael Torre M.D. [id number] DRUGS OF ABUSE SCREEN, URINE on 03-04-2024 AMPHETAMINE SCREEN, URINE Not detected Normal None Detected [facility] Comment on above: Order Comment: Scree n results should be used for treatment purposes only.Specimen will be kept for 2 weeks, if the sample is adequate. Confirmation testing can be initiated by calling the lab within 2 weeks. Result Comment: Urin e Amphetamine Cutoff: < 1000 ng/mL = None Detected Performed By: #### L [id number] #### [facility] [address] [address] Ismael Torre M.D. [id number] BARBITURATE SCREEN URINE Positive Abnormal None Detected [facility] Comment on above: Order Comment: Scree n results should be used for treatment purposes only.Specimen will be kept for 2 weeks, if the sample is adequate. Confirmation testing can be initiated by calling the lab within 2 weeks. Result Comment: Urin e Barbiturates Cutoff: < 200 ng/mL = None Detected Performed By: #### L [id number] #### [facility] [address] [address] Ismael Torre M.D. [id number] BENZODIAZEPINE SCREEN, URINE Positive Abnormal None Detected [facility] Comment on above: Order Comment: Scree n results should be used for treatment purposes only.Specimen will be kept for 2 weeks, if the sample is adequate. Confirmation testing can be initiated by calling the lab within 2 weeks. Result Comment: Urin e Benzodiazepine Cutoff: < 200 ng/mL = None Detected Performed By: #### L [id number] #### [facility] [address] [address] Ismael Torre M.D. [id number] BUPRENORPHINE, URINE Not detected Normal None Detected [facility] Comment on above: Order Comment: Scree n results should be used for treatment purposes only.Specimen will be kept for 2 weeks, if the sample is adequate. Confirmation testing can be initiated by calling the lab within 2 weeks. Result Comment: Urin e Buprenorphine Cutoff: < 5 ng/mL = None Detected Performed By: #### L [id number] #### [facility] [address] [address] Ismael Torre M.D. [id number] CANNABINOID SCREEN URINE Not detected Normal None Detected [facility] Comment on above: Order Comment: Scree n results should be used for treatment purposes only.Specimen will be kept for 2 weeks, if the sample is adequate. Confirmation testing can be initiated by calling the lab within 2 weeks. Result Comment: Urin e Cannabinoids Cutoff: < 50 ng/mL = None Detected Performed By: #### L [id number] #### [facility] [address] [place] [address] Ismael Torre M.D. [id number] COCAINE, SCREEN URINE Not detected Normal None Detected [facility] Comment on above: Order Comment: Scree n results should be used for treatment purposes only.Specimen will be kept for 2 weeks, if the sample is adequate. Confirmation testing can be initiated by calling the lab within 2 weeks. Result Comment: Urin e Cocaine Cutoff: < 300 ng/mL = None Detected Performed By: #### L [id number] #### [facility] [address] [address] Ismael Torre M.D. [id number] FENTANYL, URINE Not detected Normal None Detected [facility] Comment on above: Order Comment: Scree n results should be used for treatment purposes only.Specimen will be kept for 2 weeks, if the sample is adequate. Confirmation testing can be initiated by calling the lab within 2 weeks. Result Comment: Urin e Fentanyl Cutoff: < 1 ng/mL = None Detected Performed By: #### L [id number] #### [facility] [address] [address] Ismael Torre M.D. [id number] METHADONE SCREEN, URINE Not detected Normal None Detected [facility] Comment on above: Order Comment: Scree n results should be used for treatment purposes only.Specimen will be kept for 2 weeks, if the sample is adequate. Confirmation testing can be initiated by calling the lab within 2 weeks. Result Comment: Urin e Methadone Cutoff: < 300 ng/mL = None Detected Performed By: #### L [id number] #### [facility] [address] [address] Ismael Torre M.D. [id number] OPIATE SCREEN URINE Not detected Normal None Detected [facility] Comment on above: Order Comment: Scree n results should be used for treatment purposes only.Specimen will be kept for 2 weeks, if the sample is adequate. Confirmation testing can be initiated by calling the lab within 2 weeks. Result Comment: Urin e Opiates Cutoff: < 300 ng/mL = None Detected Performed By: #### L [id number] #### [facility] [address] [address] Ismael Torre M.D. [id number] OXYCODONE SCREEN, URINE Not detected Normal None Detected [facility] Comment on above: Order Comment: Scree n results should be used for treatment purposes only.Specimen will be kept for 2 weeks, if the sample is adequate. Confirmation testing can be initiated by calling the lab within 2 weeks. Result Comment: Urin e Oxycodone Cutoff: < 100 ng/mL = None Detected Performed By: #### L [id number] #### [facility] [address] [address] Ismael Torre M.D. [id number] AMPHETAMINE SCREEN, URINE Not detected Normal None Detected [facility] Comment on above: Order Comment: Scree n results should be used for treatment purposes only.Specimen will be kept for 2 weeks, if the sample is adequate. Confirmation testing can be initiated by calling the lab within 2 weeks. Result Comment: Urin e Amphetamine Cutoff: < 1000 ng/mL = None Detected Performed By: #### [id number] #### [facility] [address] [address] Ismael Torre M.D. [id number] BARBITURATE SCREEN URINE Positive Abnormal None Detected [facility] Comment on above: Order Comment: Scree n results should be used for treatment purposes only.Specimen will be kept for 2 weeks, if the sample is adequate. Confirmation testing can be initiated by calling the lab within 2 weeks. Result Comment: Urin e Barbiturates Cutoff: < 200 ng/mL = None Detected Performed By: #### [id number] #### [facility] [address] [address] Ismael Torre M.D. [id number] BENZODIAZEPINE SCREEN, URINE Positive Abnormal None Detected [facility] Comment on above: Order Comment: Scree n results should be used for treatment purposes only.Specimen will be kept for 2 weeks, if the sample is adequate. Confirmation testing can be initiated by calling the lab within 2 weeks. Result Comment: Urin e Benzodiazepine Cutoff: < 200 ng/mL = None Detected Performed By: #### [id number] #### [facility] [address] [address] Ismael Torre M.D. [id number] BUPRENORPHINE, URINE Not detected Normal None Detected [facility] Comment on above: Order Comment: Scree n results should be used for treatment purposes only.Specimen will be kept for 2 weeks, if the sample is adequate. Confirmation testing can be initiated by calling the lab within 2 weeks. Result Comment: Urin e Buprenorphine Cutoff: < 5 ng/mL = None Detected Performed By: #### [id number] #### [facility] [address] [address] Ismael Torre M.D. [id number] CANNABINOID SCREEN URINE Not detected Normal None Detected [facility] Comment on above: Order Comment: Scree n results should be used for treatment purposes only.Specimen will be kept for 2 weeks, if the sample is adequate. Confirmation testing can be initiated by calling the lab within 2 weeks. Result Comment: Urin e Cannabinoids Cutoff: < 50 ng/mL = None Detected Performed By: #### [id number] #### [facility] [address] [address] Ismael Torre M.D. [id number] COCAINE, SCREEN URINE Not detected Normal None Detected [facility] Comment on above: Order Comment: Scree n results should be used for treatment purposes only.Specimen will be kept for 2 weeks, if the sample is adequate. Confirmation testing can be initiated by calling the lab within 2 weeks. Result Comment: Urin e Cocaine Cutoff: < 300 ng/mL = None Detected Performed By: #### [id number] #### LAB [address] [address] Ismael Torre M.D. [id number] FENTANYL, URINE Not detected Normal None Detected [facility] Comment on above: Order Comment: Scree n results should be used for treatment purposes only.Specimen will be kept for 2 weeks, if the sample is adequate. Confirmation testing can be initiated by calling the lab within 2 weeks. Result Comment: Urin e Fentanyl Cutoff: < 1 ng/mL = None Detected Performed By: #### [id number] #### [facility] [address] [address] Ismael Torre M.D. [id number] METHADONE SCREEN, URINE Not detected Normal None Detected [facility] Comment on above: Order Comment: Scree n results should be used for treatment purposes only.Specimen will be kept for 2 weeks, if the sample is adequate. Confirmation testing can be initiated by calling the lab within 2 weeks. Result Comment: Urin e Methadone Cutoff: < 300 ng/mL = None Detected Performed By: #### [id number] #### [facility] [address] [address] Ismael Torre M.D. [id number] OPIATE SCREEN URINE Not detected Normal None Detected [facility] Comment on above: Order Comment: Scree n results should be used for treatment purposes only.Specimen will be kept for 2 weeks, if the sample is adequate. Confirmation testing can be initiated by calling the lab within 2 weeks. Result Comment: Urin e Opiates Cutoff: < 300 ng/mL = None Detected Performed By: #### [id number] #### [facility] [address] [address] Ismael Torre M.D. [id number] OXYCODONE SCREEN, URINE Not detected Normal None Detected [facility] Comment on above: Order Comment: Scree n results should be used for treatment purposes only.Specimen will be kept for 2 weeks, if the sample is adequate. Confirmation testing can be initiated by calling the lab within 2 weeks. Result Comment: Urin e Oxycodone Cutoff: < 100 ng/mL = None Detected Performed By: #### [id number] #### [facility] [address] [facility] [place] [address] Ismael Torre M.D. [id number] ED Prov Noteon 03-04-2024 ED Prov Note ED PROVIDER NOTE [facility] NAME: Reema Shah AGE: 48 y.o. : 1975 VISIT DATE: 03/04/2024 CSN: [id number] PCP: Jyoti Gupta MD Chief Complaint Patient presents with Tremors This is a 48-year-old who states she has a history of epilepsy with grand mal seizure being followed by Dr. Chopra at [facility], anxiety, depression, chronic kidney disease, congestive heart [...] Past Medical History: Diagnosis Date Acquired thrombocytopenia ([facility]) [facility]/Lopez Shaikh Acute kidney injury (HCC) 05/22/2018 [facility]/Jonatan Chiu DO Anxiety Arm abrasion 06/19/2019 INFO GAINED FROM: /[facility] ED VISIT NOTE --- AC GAO MD Calcaneal spur of right foot 2017 Documented on x-ray CKD (chronic kidney disease) Congestive heart failure (CHF) ([facility]) [facility]/Lopez Shaikh Contusion, hip 06/19/2019 INFO GAINED FROM: /[facility] ED VISIT NOTE --- AC GAO MD Depression Epilepsy ([facility]) [facility]ile[facility] ([facility] 1994 Facet degeneration of lumbar region 10/14/2018 [facility]/Jono ALEXIS, Moi Mild facet degenerative changes seen in the lower lumbar spine Fatty liver [facility]/Joe Mendieta MD Mild fibrofatty changes of the liver Fluid collection (edema) in the arms, legs, hands and feet 03/09/2018 Dr valentina Chopra Gastritis determined by endoscopy 12/29/2016 Dr. LeeIdxwsb-Xzycvdrpk-neejyb forated nonbleeding with biopsy 1 para 1 Hepatic steatosis [facility]/Heidy Jara MD Mild Hiatal hernia 12/29/[address] Lobo grade 4 Hypercholesterolemia [facility]/Jonatan Chiu DO Hypertension 2001 2000-present Insomnia [facility]/Lopez Shaikh Kidney stone [facility]/Lopez Shaikh Laceration of head 06/19/2019 INFO GAINED FROM: /[facility] ED VISIT NOTE --- MURRAY ALEXIS,AC A Lung nodule 12/15/2017 0.5 cm pleural based nodule in right middle lobe. Mild linear atelectasis Mitral valve prolapse [facility]/Lopez Shaikh Motor seizure (HCC) 03/16/2019 INFO GAINED FROM: /[facility] ED VISIT --- GILMAN DO,CAREN Rectus diastasis [facility]/Heidy Jara MD Present with small wide necked perumbical ventral containing fat. Second degree burn of foot 04/23/2018 Right Foot - [facility] Sleep apnea Stroke (HCC) 2000 mild Tremor Past Surgical History: Procedure Laterality Date Conner pH capsule placement 02/01/2017 Dr. Lobo BREAST REDUCTION 2000 [facility]-nonperforating gastritis ESOPHAGEAL [...] . albuterol (more content not included)... Normal [facility] LEVETIRACETAM LEVELon 2023 levETIRAcetam [Mass/Vol] 68.5 ug/mL High 6.0-46.0 [facility] Comment on above: Performed By: #### [id number] #### [facility] [address] [address] Ismael Torre M.D. [id number] PROTEIN / CREATININE RATIO, URINEon 03-04-2024 CREATININE,UR 18.6 mg/dL Normal [facility] Comment on above: Performed By: #### L [id number] #### [facility] [address] [address] Ismael Torre M.D. [id number] Protein (U) [Mass/Vol] 12.1 mg/dL Normal [facility] Comment on above: Performed By: #### L [id number] #### [facility] [address] [address] Ismael Torre M.D. [id number] PROTEIN CREATININE RATIO 0.7 ratio High 0.0-0.2 [facility] Comment on above: Performed By: #### L [id number] #### [facility] [address] [address] Ismael Torre M.D. [id number] URINALYSISon 03-04-2024 BACTERIA, URINE None Seen Normal None Seen [facility] Comment on above: Order Comment: Micro scopic examination is performed on all urinalysis samples and only positive findings are reported. The test for blood on the chemical analytic portion of urinalysis may also be positive due to hemoglobinuria and myoglobinuria and if red blood cells are present they are quantified by microscopic examination. Performed By: #### L [id number] #### [facility] [address] [id number] Ismael Torre M.D. [id number] BILIRUBIN, URINE Negative Normal Negative [facility] Comment on above: Order Comment: Micro scopic examination is performed on all urinalysis samples and only positive findings are reported. The test for blood on the chemical analytic portion of urinalysis may also be positive due to hemoglobinuria and myoglobinuria and if red blood cells are present they are quantified by microscopic examination. Performed By: #### L [id number] #### [facility] [address] [address] Ismael Torre M.D. [id number] BLOOD, URINE Small Abnormal Negative [facility] Comment on above: Order Comment: Micro scopic examination is performed on all urinalysis samples and only positive findings are reported. The test for blood on the chemical analytic portion of urinalysis may also be positive due to hemoglobinuria and myoglobinuria and if red blood cells are present they are quantified by microscopic examination. Performed By: #### L [id number] #### [facility] [address] [address] Ismael Torre M.D. [id number] Clarity (U) Clear Normal Clear [facility] Comment on above: Order Comment: Micro scopic examination is performed on all urinalysis samples and only positive findings are reported. The test for blood on the chemical analytic portion of urinalysis may also be positive due to hemoglobinuria and myoglobinuria and if red blood cells are present they are quantified by microscopic examination. Performed By: #### L [id number] #### [facility] [address] [id number] Ismael Torre M.D. [id number] Color (U) Colorless Normal Colorless, Yellow [facility] Comment on above: Order Comment: Micro scopic examination is performed on all urinalysis samples and only positive findings are reported. The test for blood on the chemical analytic portion of urinalysis may also be positive due to hemoglobinuria and myoglobinuria and if red blood cells are present they are quantified by microscopic examination. Performed By: #### L [id number] #### [facility] [address] [id number] Ismael Torre M.D. [id number] Glucose Ql (U) Negative Normal Negative [facility] Comment on above: Order Comment: Micro scopic examination is performed on all urinalysis samples and only positive findings are reported. The test for blood on the chemical analytic portion of urinalysis may also be positive due to hemoglobinuria and myoglobinuria and if red blood cells are present they are quantified by microscopic examination. Performed By: #### L [id number] #### [facility] [address] [address] Ismael Torre M.D. [id number] Ketones Ql (U) Negative Normal Negative [facility] Comment on above: Order Comment: Micro scopic examination is performed on all urinalysis samples and only positive findings are reported. The test for blood on the chemical analytic portion of urinalysis may also be positive due to hemoglobinuria and myoglobinuria and if red blood cells are present they are quantified by microscopic examination. Performed By: #### L [id number] #### [facility] [address] [address] Ismael Torre M.D. [id number] Leukocyte esterase Test strip Ql (U) Negative Normal [facility] Comment on above: Order Comment: Micro scopic examination is performed on all urinalysis samples and only positive findings are reported. The test for blood on the chemical analytic portion of urinalysis may also be positive due to hemoglobinuria and myoglobinuria and if red blood cells are present they are quantified by microscopic examination. Performed By: #### L [id number] #### [facility] [address] [address] Ismael Torre M.D. [id number] NITRITE, URINE Negative Normal [facility] Comment on above: Order Comment: Micro scopic examination is performed on all urinalysis samples and only positive findings are reported. The test for blood on the chemical analytic portion of urinalysis may also be positive due to hemoglobinuria and myoglobinuria and if red blood cells are present they are quantified by microscopic examination. Performed By: #### L [id number] #### [facility] [address] [id number] Ismael Torre M.D. [id number] pH (U) 7.5 [pH] High 5.0-7.0 [facility] Comment on above: Order Comment: Micro scopic examination is performed on all urinalysis samples and only positive findings are reported. The test for blood on the chemical analytic portion of urinalysis may also be positive due to hemoglobinuria and myoglobinuria and if red blood cells are present they are quantified by microscopic examination. Performed By: #### L [id number] #### [facility] [address] [address] Ismael Torre M.D. [id number] PROTEIN, URINE Negative Normal Negative [facility] Comment on above: Order Comment: Micro scopic examination is performed on all urinalysis samples and only positive findings are reported. The test for blood on the chemical analytic portion of urinalysis may also be positive due to hemoglobinuria and myoglobinuria and if red blood cells are present they are quantified by microscopic examination. Performed By: #### L [id number] #### [facility] [address] [id number] Ismael Torre M.D. [id number] RBC LM.HPF (Urine sed) [#/Area] 1 /[HPF] Normal 0-3 [facility] Comment on above: Order Comment: Micro scopic examination is performed on all urinalysis samples and only positive findings are reported. The test for blood on the chemical analytic portion of urinalysis may also be positive due to hemoglobinuria and myoglobinuria and if red blood cells are present they are quantified by microscopic examination. Performed By: #### L [id number] #### [facility] [address] [id number] Ismael Torre M.D. [id number] Specific gravity (U) [Rel density] 1.010 Normal 1.005-1.025 [facility] Comment on above: Order Comment: Micro scopic examination is performed on all urinalysis samples and only positive findings are reported. The test for blood on the chemical analytic portion of urinalysis may also be positive due to hemoglobinuria and myoglobinuria and if red blood cells are present they are quantified by microscopic examination. Performed By: #### L [id number] #### [facility] [address] [id number] Ismael Torre M.D. [id number] SQUAMOUS EPITHELIAL 2 /hpf Normal 0-4 [facility] Comment on above: Order Comment: Micro scopic examination is performed on all urinalysis samples and only positive findings are reported. The test for blood on the chemical analytic portion of urinalysis may also be positive due to hemoglobinuria and myoglobinuria and if red blood cells are present they are quantified by microscopic examination. Performed By: #### L [id number] #### [facility] [address] [address] Ismael Torre M.D. [id number] UROBILINOGEN, URINE <2.0 Normal <2.0 [facility] Comment on above: Order Comment: Micro scopic examination is performed on all urinalysis samples and only positive findings are reported. The test for blood on the chemical analytic portion of urinalysis may also be positive due to hemoglobinuria and myoglobinuria and if red blood cells are present they are quantified by microscopic examination. Performed By: #### L [id number] #### [facility] [address] [address] Ismael Torre M.D. [id number] BACTERIA, URINE Rare Abnormal None Seen [facility] Comment on above: Order Comment: Micro scopic examination is performed on all urinalysis samples and only positive findings are reported. The test for blood on the chemical analytic portion of urinalysis may also be positive due to hemoglobinuria and myoglobinuria and if red blood cells are present they are quantified by microscopic examination. Performed By: #### L [id number] #### [facility] [address] [id number] Ismael Torre M.D. [id number] BILIRUBIN, URINE Negative Normal Negative [facility] Comment on above: Order Comment: Micro scopic examination is performed on all urinalysis samples and only positive findings are reported. The test for blood on the chemical analytic portion of urinalysis may also be positive due to hemoglobinuria and myoglobinuria and if red blood cells are present they are quantified by microscopic examination. Performed By: #### L [id number] #### [facility] [address] [address] Ismael Torre M.D. [id number] BLOOD, URINE Small Abnormal Negative [facility] Comment on above: Order Comment: Micro scopic examination is performed on all urinalysis samples and only positive findings are reported. The test for blood on the chemical analytic portion of urinalysis may also be positive due to hemoglobinuria and myoglobinuria and if red blood cells are present they are quantified by microscopic examination. Performed By: #### L [id number] #### [facility] [address] [address] Ismael Torre M.D. [id number] Clarity (U) Clear Normal Clear [facility] Comment on above: Order Comment: Micro scopic examination is performed on all urinalysis samples and only positive findings are reported. The test for blood on the chemical analytic portion of urinalysis may also be positive due to hemoglobinuria and myoglobinuria and if red blood cells are present they are quantified by microscopic examination. Performed By: #### L [id number] #### [facility] [address] [address] Ismael Torre M.D. [id number] Color (U) Yellow Normal Colorless, Yellow [facility] Comment on above: Order Comment: Micro scopic examination is performed on all urinalysis samples and only positive findings are reported. The test for blood on the chemical analytic portion of urinalysis may also be positive due to hemoglobinuria and myoglobinuria and if red blood cells are present they are quantified by microscopic examination. Performed By: #### L [id number] #### [facility] [address] [address] Ismael Torre M.D. [id number] Glucose Ql (U) Negative Normal Negative [facility] Comment on above: Order Comment: Micro scopic examination is performed on all urinalysis samples and only positive findings are reported. The test for blood on the chemical analytic portion of urinalysis may also be positive due to hemoglobinuria and myoglobinuria and if red blood cells are present they are quantified by microscopic examination. Performed By: #### L [id number] #### LAB [address] [address] Ismael Torre M.D. [id number] Ketones Ql (U) Negative Normal Negative [facility] Comment on above: Order Comment: Micro scopic examination is performed on all urinalysis samples and only positive findings are reported. The test for blood on the chemical analytic portion of urinalysis may also be positive due to hemoglobinuria and myoglobinuria and if red blood cells are present they are quantified by microscopic examination. Performed By: #### L [id number] #### [facility] [address] [place] [address] Ismael Torre M.D. [id number] Leukocyte esterase Test strip Ql (U) Trace Abnormal Negative [facility] Comment on above: Order Comment: Micro scopic examination is performed on all urinalysis samples and only positive findings are reported. The test for blood on the chemical analytic portion of urinalysis may also be positive due to hemoglobinuria and myoglobinuria and if red blood cells are present they are quantified by microscopic examination. Performed By: #### L [id number] #### [facility] [address] [place] [address] Ismael Torre M.D. [id number] NITRITE, URINE Negative Normal Negative [facility] Comment on above: Order Comment: Micro scopic examination is performed on all urinalysis samples and only positive findings are reported. The test for blood on the chemical analytic portion of urinalysis may also be positive due to hemoglobinuria and myoglobinuria and if red blood cells are present they are quantified by microscopic examination. Performed By: #### L [id number] #### [facility] [address] [id number] Ismael Torre M.D. [id number] pH (U) 6.5 [pH] Normal 5.0-7.0 [facility] Comment on above: Order Comment: Micro scopic examination is performed on all urinalysis samples and only positive findings are reported. The test for blood on the chemical analytic portion of urinalysis may also be positive due to hemoglobinuria and myoglobinuria and if red blood cells are present they are quantified by microscopic examination. Performed By: #### L [id number] #### [facility] [address] [address] Ismael Torre M.D. [id number] PROTEIN, URINE Negative Normal Negative [facility] Comment on above: Order Comment: Micro scopic examination is performed on all urinalysis samples and only positive findings are reported. The test for blood on the chemical analytic portion of urinalysis may also be positive due to hemoglobinuria and myoglobinuria and if red blood cells are present they are quantified by microscopic examination. Performed By: #### L [id number] #### [facility] [address] [place] [address] Ismael Torre M.D. [id number] RBC LM.HPF (Urine sed) [#/Area] 10 /[HPF] High 0-3 [facility] Comment on above: Order Comment: Micro scopic examination is performed on all urinalysis samples and only positive findings are reported. The test for blood on the chemical analytic portion of urinalysis may also be positive due to hemoglobinuria and myoglobinuria and if red blood cells are present they are quantified by microscopic examination. Performed By: #### L [id number] #### LAB [address] [place] [address] Ismael Torre M.D. [id number] Specific gravity (U) [Rel density] 1.018 Normal 1.005-1.025 [facility] Comment on above: Order Comment: Micro scopic examination is performed on all urinalysis samples and only positive findings are reported. The test for blood on the chemical analytic portion of urinalysis may also be positive due to hemoglobinuria and myoglobinuria and if red blood cells are present they are quantified by microscopic examination. Performed By: #### L [id number] #### [facility] [address] [place] [address] Ismael Torre M.D. [id number] SQUAMOUS EPITHELIAL 2 /hpf Normal 0-4 [facility] Comment on above: Order Comment: Micro scopic examination is performed on all urinalysis samples and only positive findings are reported. The test for blood on the chemical analytic portion of urinalysis may also be positive due to hemoglobinuria and myoglobinuria and if red blood cells are present they are quantified by microscopic examination. Performed By: #### L [id number] #### [facility] [address] [id number] Ismael Torre M.D. [id number] UROBILINOGEN, URINE <2.0 Normal <2.0 [facility] Comment on above: Order Comment: Micro scopic examination is performed on all urinalysis samples and only positive findings are reported. The test for blood on the chemical analytic portion of urinalysis may also be positive due to hemoglobinuria and myoglobinuria and if red blood cells are present they are quantified by microscopic examination. Performed By: #### L [id number] #### [facility] [address] [address] Ismael Torre M.D. [id number] WBC LM.HPF (Urine sed) [#/Area] 1 /[HPF] Normal 0-5 [facility] Comment on above: Order Comment: Micro scopic examination is performed on all urinalysis samples and only positive findings are reported. The test for blood on the chemical analytic portion of urinalysis may also be positive due to hemoglobinuria and myoglobinuria and if red blood cells are present they are quantified by microscopic examination. Performed By: #### L [id number] #### [facility] [address] [place], [place] [address] Ismael Torre M.D. [id number] URINE AEROBIC CULTUREon 02-15 URINE AEROBIC CULTURE URINE CULTURE < 10,000 CFU/mL of normal urogenital microbiota Normal [facility] Comment on above: Performed By: #### 4 [id number] #### [facility] [address] [place], [place] [address] Ismael Torre M.D. [id number] VALPROIC ACID LEVELon 2023 VALPROIC ACID 25 mcg/mL Low 50-100 [facility] Comment on above: Performed By: #### L [id number] #### [facility] [address] [place], [place] [address] Ismael Torre M.D. [id number] VALPROIC ACID 30 mcg/mL Low 50-100 [facility] Comment on above: Performed By: #### L [id number] #### [facility] [address] [id number] Ismael Torre M.D. [id number] VALPROIC ACID, FREEon 2023 [facility] VALPROIC ACID FREE <3 Low 5 - 25 [facility] Comment on above: Result Comment: Test Performed by: [place] [address] Anchor Tacker: Benigno Madsen M.D. Ph.D.; CLIA# [id number] Performed By: #### L [id number] #### [facility] [address] [id number] Ismael Torre M.D. [id number] BASIC METABOLIC PANEL 02-15 Anion gap [Moles/Vol] 16 mmol/L Normal 10-20 [facility] Comment on above: Order Comment: [facility] has implemented the eGFR calculation approach that does not have a coefficient for race that conforms to the NKF-ASN Task Force Recommendations. Performed By: #### L [id number] #### [facility] [address] [place], [place] [address] Ismael Torre M.D. [id number] Calcium [Mass/Vol] 8.9 mg/dL Normal 8.4-10.2 [facility] Comment on above: Order Comment: [facility] has implemented the eGFR calculation approach that does not have a coefficient for race that conforms to the NKF-ASN Task Force Recommendations. Performed By: #### L [id number] #### [facility] [address] [place], [place] [address] Ismael Torre M.D. [id number] Chloride [Moles/Vol] 104 mmol/L Normal 98-108 [facility] Comment on above: Order Comment: [facility] has implemented the eGFR calculation approach that does not have a coefficient for race that conforms to the NKF-ASN Task Force Recommendations. Performed By: #### L [id number] #### [facility] [address] [place], [place] [address] Ismael Torre M.D. [id number] Creatinine [Mass/Vol] 1.43 mg/dL High 0.40-1.10 [facility] Comment on above: Order Comment: [facility] has implemented the eGFR calculation approach that does not have a coefficient for race that conforms to the NKF-ASN Task Force Recommendations. Performed By: #### L [id number] #### [facility] [address] [address] Ismael Torre M.D. [id number] EGFR 45 mL/min/1.73 m2 Low >=60 [facility] Comment on above: Order Comment: [facility] has implemented the eGFR calculation approach that does not have a coefficient for race that conforms to the NKF-ASN Task Force Recommendations. Result Comment: Frieda mated GFR was calculated using the 2020 CKD-EPI creatinine equation. Performed By: #### L [id number] #### [facility] [address] [address] Ismael Torre M.D. [id number] Glucose [Mass/Vol] 100 mg/dL High 65-99 [facility] Comment on above: Order Comment: [facility] has implemented the eGFR calculation approach that does not have a coefficient for race that conforms to the NKF-ASN Task Force Recommendations. Performed By: #### L [id number] #### [facility] [address] [address] Ismael Torre M.D. [id number] HCO3 (Bld) [Moles/Vol] 23 mmol/L Normal 21-32 [facility] Comment on above: Order Comment: [facility] has implemented the eGFR calculation approach that does not have a coefficient for race that conforms to the NKF-ASN Task Force Recommendations. Performed By: #### L [id number] #### [facility] [address] [address] Ismael Torre M.D. [id number] Potassium [Moles/Vol] 4.9 mmol/L Normal 3.5-5.1 [facility] Comment on above: Order Comment: [facility] has implemented the eGFR calculation approach that does not have a coefficient for race that conforms to the NKF-ASN Task Force Recommendations. Result Comment: Slig htly Hemolyzed Performed By: #### L [id number] #### [facility] [address] [address] Ismael Torre M.D. [id number] Sodium [Moles/Vol] 138 mmol/L Normal 135-145 [facility] Comment on above: Order Comment: [facility] has implemented the eGFR calculation approach that does not have a coefficient for race that conforms to the NKF-ASN Task Force Recommendations. Performed By: #### L [id number] #### [facility] [address] [address] Ismael Torre M.D. [id number] Urea nitrogen [Mass/Vol] 23 mg/dL Normal 8-25 [facility] Comment on above: Order Comment: [facility] has implemented the eGFR calculation approach that does not have a coefficient for race that conforms to the NKF-ASN Task Force Recommendations. Performed By: #### L [id number] #### [facility] [address] [address] Ismael Torre M.D. [id number] Urea nitrogen/Creatinine [Mass ratio] 16.1 mg/mg Normal 10.0-20.0 [facility] Comment on above: Order Comment: [facility] has implemented the eGFR calculation approach that does not have a coefficient for race that conforms to the NKF-ASN Task Force Recommendations. Performed By: #### L [id number] #### [facility] [address] [address] Ismael Torre M.D. [id number] CBC WITH AUTO DIFFERENTIALon 03-03-2024 AUTO NRBC 0.0 % Normal [facility] Comment on above: Performed By: #### 4 5060 #### [facility] [address] [address] Ismael Torre M.D. [id number] AUTO NRBC ABS COUNT 0.00 K/mcL Normal 0.00-0.00 [facility] Comment on above: Performed By: #### 4 5060 #### LAB [address] [address] Ismael Torre M.D. [id number] BASOPHILS ABSOLUTE COUNT 0.01 K/mcL Normal 0.00-0.30 [facility] Comment on above: Performed By: #### 4 5060 #### LAB [address] [address] Ismael Torre M.D. [id number] Basophils/100 WBC (Bld) 0.2 % Normal [facility] Comment on above: Performed By: #### 4 5060 #### LAB [address] [address] Ismael Torre M.D. [id number] Eosinophils (Bld) [#/Vol] 0.06 10*3/uL Normal 0.00-0.50 [facility] Comment on above: Performed By: #### 4 5060 #### LAB [address] [address] Ismael Torre M.D. [id number] Eosinophils/100 WBC (Bld) 1.2 % Normal [facility] Comment on above: Performed By: #### 4 5060 #### LAB [address] [address] Ismael Torre M.D. [id number] Erythrocyte distribution width (RBC) [Ratio] 12.6 % Normal 11.6-14.8 [facility] Comment on above: Performed By: #### 4 5060 #### LAB [address] [address] Ismael Torre M.D. [id number] Hematocrit (Bld) [Volume fraction] 39.7 % Normal 36.0-46.0 [facility] Comment on above: Performed By: #### 4 5060 #### LAB [address] [address] Ismael Torre M.D. [id number] Hemoglobin (Bld) [Mass/Vol] 13.6 g/dL Normal 12.0-16.0 [facility] Comment on above: Performed By: #### 4 5060 #### LAB [address] [address] Ismael Torre M.D. [id number] IG ABSOLUTE 0.04 K/mcL Normal 0.00-0.30 [facility] Comment on above: Performed By: #### 4 5060 #### LAB [address] [address] Ismael Torre M.D. [id number] IG PERCENT 0.80 % Normal [facility] Comment on above: Result Comment: The IG parameter is the percentage of metamyelocytes, myelocytes and promyelocytes. An immature granulocyte count (IG) of 1% or more suggests the possibility of infection, an IG count of 3% is very likely related to an infection. Performed By: #### 4 5060 #### LAB [address] [address] Ismael Torre M.D. [id number] Lymphocytes (Bld) [#/Vol] 1.87 10*3/uL Normal 0.90-4.00 [facility] Comment on above: Performed By: #### 4 5060 #### LAB [address] [address] Ismael Torre M.D. [id number] Lymphocytes/100 WBC (Bld) 36.4 % Normal [facility] Comment on above: Performed By: #### 4 5060 #### LAB [address] [address] Ismael Torre M.D. [id number] MCH (RBC) [Entitic mass] 31.1 pg Normal 26.0-34.0 [facility] Comment on above: Performed By: #### 4 5060 #### LAB [address] [address] Ismael Torre M.D. [id number] MCV (RBC) [Entitic vol] 90.6 fL Normal 80.0-100.0 [facility] Comment on above: Performed By: #### 4 5060 #### LAB [address] [address] Ismael Torre M.D. [id number] MEAN CORPUSCULAR HEMOGLOBIN CONC 34.3 g/dL Normal 31.0-37.0 [facility] Comment on above: Performed By: #### 4 5060 #### LAB [address] [address] Ismael Torre M.D. [id number] Monocytes (Bld) [#/Vol] 0.46 10*3/uL Normal 0.30-0.90 [facility] Comment on above: Performed By: #### 4 5060 #### LAB [address] [address] Ismael Torre M.D. [id number] Monocytes/100 WBC (Bld) 8.9 % Normal [facility] Comment on above: Performed By: #### 4 5060 #### LAB [address] [address] Ismael Torre M.D. [id number] NEUTROPHILS ABSOLUTE COUNT 2.70 K/mcL Normal 1.70-7.00 [facility] Comment on above: Performed By: #### 4 5060 #### LAB [address] [address] Ismael Torre M.D. [id number] Neutrophils/100 WBC (Bld) 52.5 % Normal [facility] Comment on above: Performed By: #### 4 5060 #### LAB [address] [address] Ismael Torre M.D. [id number] Platelet mean volume (Bld) [Entitic vol] 10.2 fL Normal 9.4-12.4 [facility] Comment on above: Performed By: #### 4 5060 #### LAB [address] [address] Ismael Torre M.D. [id number] Platelets (Bld) [#/Vol] 126 10*3/uL Low 150-400 [facility] Comment on above: Performed By: #### 4 5060 #### LAB [address] [place], [place] [address] Ismael Torre M.D. [id number] RBC (Bld) [#/Vol] 4.38 10*6/uL Normal 4.00-5.20 [facility] Comment on above: Performed By: #### 4 5060 #### LAB [address] [place], [place] [address] Ismael Torre M.D. [id number] WBC (Bld) [#/Vol] 5.14 10*3/uL Normal 4.50-11.00 [facility] Comment on above: Performed By: #### 4 5060 #### LAB [address] [place], [place] [address] Ismael Torre M.D. [id number] ED Prov Noteon 03-03-2024 ED Prov Note [facility] ATTENDING NOTE: NAME: Reema Shah CSN: [id number] 48 y.o. PCP: Jyoti Gupta MD History: [...] Center/[facility] Acute kidney injury (HCC) 05/22/2018 [facility]/Jonatan Chiu DO Anxiety Arm abrasion 06/19/2019 INFO GAINED FROM: /[facility] ED VISIT NOTE --- MURRAY MD,AC A Calcaneal spur of right foot 2016 Documented on x-ray CKD (chronic kidney disease) Congestive heart failure (CHF) ([facility]) [facility] Contusion, hip 06/19/2019 INFO GAINED FROM: /[facility] ED VISIT NOTE --- AC GAO MD Depression Epilepsy ([facility]) 08/06/2011 [facility]- Dr. Chopra Epilepsy ([facility]) 1993 Facet degeneration of lumbar region 10/14/2018 [facility]/Jono ALEXIS, Moi Mild facet degenerative changes seen in the lower lumbar spine Fatty liver [facility]/Joe Mendieta MD Mild fibrofatty changes of the liver Fluid collection (edema) in the arms, legs, hands and feet 03/09/2018 Dr valentina Chopra Gastritis determined by endoscopy 12/29/2016 Dr. GuerreroDwyuia-Vmbuljgxb-irnbsc forated nonbleeding with biopsy 1 para 1 Hepatic steatosis [facility]/Heidy Jara MD Mild Hiatal hernia 12/29/[address] Lobo grade 4 Hypercholesterolemia [facility]/Jonatan Chiu DO Hypertension 2000 2000-present Insomnia [facility] Kidney stone [facility] Laceration of head 06/19/2019 INFO GAINED FROM: /[facility] ED VISIT NOTE --- AC GAO MD Lung nodule 12/15/2017 0.5 cm pleural based nodule in right middle lobe. Mild linear atelectasis Mitral valve prolapse [facility] Motor seizure ([facility]) 03/16/2019 INFO GAINED FROM: /[facility] ED VISIT --- GILMAN DO,CAREN Rectus diastasis [facility]/Heidy Jara MD Present with small wide necked perumbical ventral containing fat. Second degree burn of foot 04/23/2018 Right Foot - [facility] Sleep apnea Stroke ([facility]) 2000 mild Tremor PMSx: Past Surgical History: Procedure Laterality Date Conner pH capsule placement 02/01/2017 Dr. Lobo BREAST REDUCTION 1999 [facility]-nonperforating gastritis ESOPHAGEAL MANOMETRY 02/01/2017 HERNIA REPAIR 06/11/2017 Dr Richards INTRAUTERINE DEVICE INSERTION 02/15/2015 Dr. Pennie Meyers OBGYN Laparoscopic LINX sphincter augmentation with cruroplasty 06/11/2017 Dr. Yamil SWENSONDOM TOOTH EXTRACTION FAM. Hx: Family History Problem [...] by nebuliz (more content not included)... Normal [facility] TROPONINon 03-03-2024 BASELINE TROPONIN T NG/L 8 ng/L Normal <=14 [facility] Comment on above: Performed By: #### L [id number] #### [facility] [address] [place], [place] [address] Ismael Torre M.D. [id number] TROPONIN T INTERPRETATION Normal Normal [facility] Comment on above: Performed By: #### L [id number] #### [facility] [address] [place], [place] [address] Ismael Torre M.D. [id number] XR CHEST PA/APon 03-03-2024 XR CHEST PA/AP [...] on WedMarch 03, 2024 6:39:27 PM EDT Normal [facility] Comment on above: Order Comment: Injur y/Trauma or Illness?:Illness/OtherHow long have you had these symptoms (acute/chronic)?:AcuteReason for exam?:chest pain and sobHistory of cancer?:nSurgeries, chemotherapy, or radiation?:yesType of Exam?:InitialAdditional signs and symptoms?:. CBC Auto Differentialon 12-16 Erythrocyte distribution width (RBC) [Entitic vol] 13.1 % 11.6 - 14.8 % [facility] Hematocrit (Bld) [Volume fraction] 36.2 % 36.0 - 46.0 % [facility] Hemoglobin (Bld) [Mass/Vol] 12.3 g/dL 12.0 - 16.0 g/dL [facility] MCH (RBC) [Entitic mass] 31.5 pg 26.0 - 34.0 pg [facility] MCHC (RBC) [Mass/Vol] 34.0 g/dL 31.0 - 37.0 g/dL [facility] MCV (RBC) [Entitic vol] 92.8 fL 80.0 - 100.0 fL [facility] Nucleated RBC (Bld) [#/Vol] 0.00 10*3/uL [facility] Nucleated RBC/100 WBC (Bld) [Ratio] 0.0 % [facility] Platelet mean volume (Bld) [Entitic vol] 10.8 fL 9.4 - 12.4 fL [facility] Platelets (Bld) [#/Vol] 104 10*3/uL Low [facility] RBC (Bld) [#/Vol] 3.90 10*6/uL Low [facility] WBC (Bld) [#/Vol] 4.00 10*3/uL Low [facility] CBC and Diff Morphologyon Dacrocytes LM Ql (Bld) Few [facility] Ovalocytes LM Ql (Bld) Few [facility] Platelets Large Auto Ql (Bld) Few [facility] RBC morphology finding Nom (Bld) See Comment [facility] Comment on above: RBC Indices confirme d [...] is no periappendiceal inflammation to indicate appendicitis. [employer] Workstation ID: [id number] [employer] EXAMINATION: CT DISSECTION WITH PELVIS HISTORY: ORDERING [...] collection. No acute bone findings are seen. [employer] Summer Kline MD - 01/01/2024 EXAMINATION: CT [...] 16, 2021 CT chest without contrast. 3. Delivery 20, 2018 CT abdomen pelvis without contrast. TECHNIQUE: Dose [...] is no periappendiceal inflammation to indicate appendicitis. [employer] Workstation ID: [id number] [facility] CT Abdomen and Pelvis W cont rast IVOrdered By: Summer Mauro on 01-01-2024 [facility] Work Phone: Cobalamin (Vitamin B12) [Mas s/Vol]on 01-01-2024 Interpretation and review of laboratory results Normal [facility] Comprehensive metabolic 2000 panelOrdered By: Pratibha Russo on 01-01-2024 Albumin [Mass/Vol] 3.5 g/dL 3.2 - 5.2 g/dL [facility] ALP [Catalytic activity/Vol] 87 U/L 40 - 150 U/L [facility] ALT [Catalytic activity/Vol] 11 U/L 0-35 U/L [facility] Anion gap [Moles/Vol] 16 mmol/L 10 - 2 0 mmol/L [facility] AST [Catalytic activity/Vol] 19 U/L 0-35 U/L [facility] Bilirubin [Mass/Vol] mg/dL 0.0 - 1 .3 mg/dL [facility] Calcium [Mass/Vol] 8.4 mg/dL 8.4 - 10. 2 mg/dL [facility] Chloride [Moles/Vol] 104 mmol/L 98 - 10 8 mmol/L [facility] Creatinine [Mass/Vol] 1.39 mg/dL High 0.40 - 1.10 mg/dL [facility] GFR/1.73 sq M.predicted CKD-EPI (S/P/Bld) [Vol rate/Area] 46 Low - PINF [facility] Comment on above: Estimated GFR was ca lculated using the 2020 CKD-EPI creatinine equation. Glucose [Mass/Vol] 132 mg/dL High 65 - 99 mg/dL [facility] HCO3 [Moles/Vol] 21 mmol/L 21 - 32 mmol/L [facility] Potassium [Moles/Vol] 3.9 mmol/L 3.5 - 5.1 mmol/L [facility] Protein [Mass/Vol] 5.8 g/dL Low 6.0 - 8.0 g/dL [facility] Sodium [Moles/Vol] 137 mmol/L 135 - 145 mmol/L [facility] Urea nitrogen [Mass/Vol] 26 mg/dL High 8 - 25 mg/dL [facility] Urea nitrogen/Creatinine [Mass ratio] 18.7 mg/mg 10.0 - 20.0 [facility] has implemented the eGFR calculation approach that does not have a coefficient for race that conforms to the NKF-ASN Task Force Recommendations. [facility] HbA1c (Bld) [Mass fraction]o n 01-01-2024 Average glucose Estimated from glycated hemoglobin (Bld) [Mass/Vol] 108 mg/dL 74 - 114 mg/dL [facility] Interpretation and review of laboratory results Normal [facility] Hemoglobin A1con 01-01-2024 HbA1c (Bld) [Mass fraction] 5.4 % 4.2 - 5.6 % [facility] Magnesiumon 01-01-2024 Magnesium [Mass/Vol] 1.7 mg/dL 1.6 - 2 .4 mg/dL [facility] Magnesium [Mass/Vol]on 12-31 Interpretation and review of laboratory results Normal [facility] Manual Differential panel (B ld)on 01-01-2024 Basophils (Bld) [#/Vol] 0.00 10*3/uL [facility] Basophils/100 WBC (Bld) 0.0 % [facility] Eosinophils (Bld) [#/Vol] 0.00 10*3/uL [facility] Eosinophils/100 WBC (Bld) 0.0 % [facility] Lymphocytes (Bld) [#/Vol] 1.23 10*3/uL [facility] Lymphocytes/100 WBC (Bld) 30.8 % [facility] Metamyelocytes/100 WBC (Bld) 1.9 % [facility] Monocytes (Bld) [#/Vol] 0.08 10*3/uL Low [facility] Monocytes/100 WBC (Bld) 1.9 % [facility] Neutrophils (Bld) [#/Vol] 2.69 10*3/uL [facility] Neutrophils/100 WBC (Bld) 65.4 % [facility] Nucleated RBC (Bld) [#/Vol] 0.04 10*3/uL High [facility] Nucleated RBC/100 WBC (Bld) [Ratio] 1 % [facility] No Panel Informationon 12-31 Interpretation and review of laboratory results Abnormal [facility] Interpretation and review of laboratory results Abnormal [facility] Phosphoruson 01-01-2024 Phosphate [Mass/Vol] 2.3 mg/dL Low 2.7 - 4 .5 mg/dL [facility] RESPIRATORY PCR PANELon 12-16 RESPIRATORY PCR PANEL [...] SARS-COV-2 (BIOFIRE): Not Detected Normal Not Detected [facility] Comment on above: Performed By: #### L [id number] #### [facility] [address], [place] [address] Ismael Torre M.D. [id number] Respiratory pathogens DNA an d RNA panel CHIARA+non-probe (Nph)Ordered By: Eva Garcia on 01-01-2024 Adenovirus DNA CHIARA+non-probe Ql (Nph) Not detected Not Detected [facility] B. parapertussis [id number] DNA CHIARA+non-probe Ql (Nph) Not detected Not Detected [facility] B. pertussis toxin promoter region CHIARA+non-probe Ql (Nph) Not detected Not Detected [facility] C. pneumoniae DNA CHIARA+non-probe Ql (Nph) Not detected Not Detected [facility] FLUAV RNA CHIARA+non-probe Ql (Nph) Not detected Not Detected [facility] FLUBV RNA CHIARA+non-probe Ql (Nph) Not detected Not Detected [facility] HCoV 229E RNA CHIARA+non-probe Ql (Nph) Not detected Not Detected [facility] HCoV HKU1 RNA CHIARA+non-probe Ql (Nph) Not detected Not Detected [facility] HCoV NL63 RNA CHIARA+non-probe Ql (Nph) Not detected Not Detected [facility] HCoV OC43 RNA CHIARA+non-probe Ql (Nph) Not detected Not Detected [facility] hMPV RNA CHIARA+non-probe Ql (Nph) Not detected Not Detected [facility] Interpretation and review of laboratory results Normal [facility] M. pneumoniae DNA CHIARA+non-probe Ql (Nph) Not detected Not Detected [facility] Parainfluenza virus 1 RNA CHIARA+non-probe Ql (Nph) Not detected Not Detected [facility] Parainfluenza virus 2 RNA CHIARA+non-probe Ql (Nph) Not detected Not Detected [facility] Parainfluenza virus 3 RNA CHIARA+non-probe Ql (Nph) Not detected Not Detected [facility] Parainfluenza virus 4 RNA CHIARA+non-probe Ql (Nph) Not detected Not Detected [facility] Rhinovirus+Enteroviru s RNA CHIARA+non-probe Ql (Nph) Not detected Not Detected [facility] RSV RNA CHIARA+non-probe Ql (Nph) Not detected Not Detected [facility] SARS-CoV-2 (COVID-19) RNA CHIARA+non-probe Ql (Nph) Not detected Not Detected [facility] TSH DL <= 0.005 mIU/L Qnon 0 01-01-2024 Interpretation and review of laboratory results Normal [facility] TSH Qn 3.71 m[IU]/L [facility] Troponinon 01-01-2024 Delta Difference Troponin T 0 ng/L < = -/+ 7 change [facility] Inter Troponin T Delta Change No biomarker evidence of cardiac injury. [facility] Troponin T 8 ng/L NINF - 14 ng/L [facility] Delta Difference Troponin T 0 ng/L < = -/+ 7 change [facility] Inter Troponin T Delta Change No biomarker evidence of cardiac injury. [facility] Troponin T 8 ng/L NINF - 14 ng/L [facility] Troponin x 2 (Now and Repeat in 3 hours)on 01-01-2024 Delta Difference Troponin T 0 ng/L < = -/+ 7 change [facility] Troponin T Delta Change No biomarker evidence of cardiac injury. [facility] Troponin T 8 ng/L NINF - 14 ng/L [facility] Valproate [Mass/Vol]on 12-31 Interpretation and review of laboratory results Abnormal [facility] Valproic Acid Levelon 2023 Valproate [Mass/Vol] 35 ug/mL Low [facility] Vitamin B12on 01-01-2024 Cobalamin (Vitamin B12) [Mass/Vol] 1219 pg/mL 232 - 1245 pg/mL [facility] Basic metabolic 2000 panelon 12-31-2023 Anion gap [Moles/Vol] 15 mmol/L 10 - 2 0 mmol/L [facility] Calcium [Mass/Vol] 9.3 mg/dL 8.4 - 10. 2 mg/dL [facility] Chloride [Moles/Vol] 106 mmol/L 98 - 10 8 mmol/L [facility] Creatinine [Mass/Vol] 1.38 mg/dL High 0.40 - 1.10 mg/dL [facility] GFR/1.73 sq M.predicted CKD-EPI (S/P/Bld) [Vol rate/Area] 47 Low - PINF [facility] Comment on above: Estimated GFR was ca lculated using the 2020 CKD-EPI creatinine equation. Glucose [Mass/Vol] 98 mg/dL 65 - 99 mg/dL [facility] HCO3 [Moles/Vol] 24 mmol/L 21 - 32 mmol/L [facility] Potassium [Moles/Vol] 4.5 mmol/L 3.5 - 5.1 mmol/L [facility] Sodium [Moles/Vol] 140 mmol/L 135 - 145 mmol/L [facility] Urea nitrogen [Mass/Vol] 25 mg/dL 8 - 25 mg/dL [facility] Urea nitrogen/Creatinine [Mass ratio] 18.1 mg/mg 10.0 - 20.0 [facility] has implemented the eGFR calculation approach that does not have a coefficient for race that conforms to the NKF-ASN Task Force Recommendations. [facility] CBC Auto Differentialon 12-16 Basophils (Bld) [#/Vol] 0.02 10*3/uL [facility] Basophils/100 WBC (Bld) 0.4 % [facility] Eosinophils (Bld) [#/Vol] 0.09 10*3/uL [facility] Eosinophils/100 WBC (Bld) 1.7 % [facility] Erythrocyte distribution width (RBC) [Entitic vol] 13.0 % 11.6 - 14.8 % [facility] Hematocrit (Bld) [Volume fraction] 38.9 % 36.0 - 46.0 % [facility] Hemoglobin (Bld) [Mass/Vol] 13.3 g/dL 12.0 - 16.0 g/dL [facility] Immature granulocytes (Bld) [#/Vol] 0.06 10*3/uL [facility] Immature granulocytes/100 WBC (Bld) 1.10 % [facility] Comment on above: The IG parameter is the percentage of metamyelocytes, myelocytes and promyelocytes. An immature granulocyte count (IG) of 1% or more suggests the possibility of infection, an IG count of 3% is very likely related to an infection. Interpretation and review of laboratory results Abnormal [facility] Lymphocytes (Bld) [#/Vol] 1.59 10*3/uL [facility] Lymphocytes/100 WBC (Bld) 29.9 % [facility] MCH (RBC) [Entitic mass] 31.3 pg 26.0 - 34.0 pg [facility] MCHC (RBC) [Mass/Vol] 34.2 g/dL 31.0 - 37.0 g/dL [facility] MCV (RBC) [Entitic vol] 91.5 fL 80.0 - 100.0 fL [facility] Monocytes (Bld) [#/Vol] 0.49 10*3/uL [facility] Monocytes/100 WBC (Bld) 9.2 % [facility] Neutrophils (Bld) [#/Vol] 3.07 10*3/uL [facility] Neutrophils/100 WBC (Bld) 57.7 % [facility] Nucleated RBC (Bld) [#/Vol] 0.00 10*3/uL [facility] Nucleated RBC/100 WBC (Bld) [Ratio] 0.0 % [facility] Platelet mean volume (Bld) [Entitic vol] 10.5 fL 9.4 - 12.4 fL [facility] Platelets (Bld) [#/Vol] 121 10*3/uL Low [facility] RBC (Bld) [#/Vol] 4.25 10*6/uL [facility] WBC (Bld) [#/Vol] 5.32 10*3/uL [facility] CT Abdomen and Pelvis W cont rast Deepak 12-31-2023 Radiology Study observation (narrative) [facility] CT DISSECTION WITH PELVISon 12-31-2023 CT DISSECTION [...] is no periappendiceal inflammation to indicate appendicitis. [facility]/r Workstation ID: [id number] Dictated by: SUMMER MAURO on Sat Jan 01, 2024 6:05:41 AM EDT Transcribed by: YOANDY GLORIA on Sat Jan 01, 2024 6:11:01 AM EDT Finalized by: SUMMER MAURO on Sat Jan 01, 2024 6:12:43 AM EDT [facility] Comment on above: Order Comment: Injur y/Trauma or Illness?:Illness/OtherHow long have you had these symptoms (acute/chronic)?:AcuteReason for exam?:Per EMS patient chest pain started an hour ago and it radiates across her back. Patient complains of 10/10 chest painType of Exam?:InitialAdditional signs and symptoms?:. EKGon 12-31-2023 [facility] EKG 12-leadon 12-31-2023 Atrial Rate 72 BPM [facility] P [place] 46 degrees [facility] P-R Interval 156 ms [facility] Q-T Interval 390 ms [facility] QRS Duration 82 ms [facility] QTC Calculation (Bezet) 427 ms [facility] R [place] 43 degrees [facility] T [place] 74 degrees [facility] Ventricular Rate 72 BPM [facility] Normal sinus rhythm Cannot rule out Anterior infarct , age undetermined Abnormal ECG ECG Cart Interpretation see physician note for interpretation. Confirmed by Susan Madera ([id number]) on 12/31/2023 9:13:45 PM [facility] Hepatic function 2000 panelO rdered By: Lori Whitten on 12-31-2023 Albumin [Mass/Vol] 3.8 g/dL 3.2 - 5.2 g/dL [facility] ALP [Catalytic activity/Vol] 84 U/L 40 - 150 U/L [facility] ALT [Catalytic activity/Vol] 13 U/L 0-35 U/L [facility] AST [Catalytic activity/Vol] 24 U/L 0-35 U/L [facility] Bilirubin [Mass/Vol] mg/dL 0.0 - 1 .3 mg/dL [facility] Bilirubin.conjugated [Mass/Vol] mg/dL 0.0 - 0.4 mg/dL [facility] Interpretation and review of laboratory results Normal [facility] Protein [Mass/Vol] 6.3 g/dL 6.0 - 8.0 g/dL [facility] Lipaseon 12-31-2023 Lipase [Catalytic activity/Vol] 66 U/L High 15 - 65 U/L [facility] Lipase [Catalytic activity/V ol]on 12-31-2023 Interpretation and review of laboratory results Abnormal [facility] Lipid 1996 panelon Cholesterol [Mass/Vol] 208 mg/dL High 100 - 199 mg/dL [facility] Cholesterol in HDL [Mass/Vol] 39 mg/dL Low 40 - 59 mg/dL [facility] Cholesterol in LDL [Mass/Vol] 96 mg/dL 10 - 130 mg/dL [facility] Comment on above: National Cholesterol Education Program Guidelines: LDL Cholesterol Optimal: <100 mg/dL Near Optimal/above Optimal: 100-129 mg/dL Borderline High: 130-159 mg/dL High: 160-189 mg/dL Very High: greater than or equal to 190 mg/dL Cholesterol non HDL [Mass/Vol] 169 mg/dL [facility] Comment on above: National Cholesterol Education Program Guidelines: NON HDL Cholesterol Desirable: <130 mg/dL Borderline High: 130-159 mg/dL High: 160-189 mg/dL Very High: > or = 190 mg/dL Cholesterol.total/Cho lesterol in HDL [Mass ratio] 5.3 {ratio} ratio [facility] Comment on above: Female Cholesterol/H DL Ratio: Average risk: 4.4 1/2 average risk: 3.3 2 x average risk: 7.1 Triglyceride [Mass/Vol] 363 mg/dL High 30 - 150 mg/dL [facility] Magnesiumon 12-31-2023 Magnesium [Mass/Vol] 1.9 mg/dL 1.6 - 2 .4 mg/dL [facility] Magnesium [Mass/Vol]on 12-30 Interpretation and review of laboratory results Normal [facility] NT Pro BNPon 12-31-2023 Natriuretic peptide.B prohormone N-Terminal [Mass/Vol] 352 pg/mL High 0 - 300 pg/mL [facility] Natriuretic peptide.B prohor mamie N-Terminal [Mass/Vol]on 12-31-2023 [employer] Study Cut-offs Rule In: < /= 50 Years >450 pg/mL 51 Years - 75 Years >900 pg/mL 76 Years - 99 Years >1800 pg/mL Rule Out: All patients <300 pg/mL [facility] No Panel Informationon 12-30 Interpretation and review of laboratory results Abnormal [facility] Extra Tube Hold for add-ons. [facility] Comment on above: Auto resulted. [facility] Interpretation and review of laboratory results Abnormal [facility] Phosphoruson 12-31-2023 Phosphate [Mass/Vol] 2.1 mg/dL Low 2.7 - 4 .5 mg/dL [facility] Troponin x 2 (Now and Repeat in 3 hours)on 12-31-2023 Troponin T 8 ng/L NINF - 14 ng/L [facility] Troponin T Interpretation Normal [facility] XR CHEST PA/APon 12-31-2023 XR CHEST PA/AP [...] on WedDec 31, 2023 9:10:25 PM EDT Normal [facility] Comment on above: Order Comment: Injur y/Trauma or Illness?:Illness/OtherHow long have you had these symptoms (acute/chronic)?:AcuteReason for exam?:chest pain that started 1 hr agoHistory of cancer?:nSurgeries, chemotherapy, or radiation?:yesType of Exam?:InitialAdditional signs and symptoms?:. XR Chest PA and Abdomen APon 12-31-2023 Nonacute portable chest. Workstation ID: [id number] GE RIS EXAMINATION: XR CHEST PA/AP 12/31/2023 9:04 pm [...] pneumothorax is noted. LINX implant is noted. GE RIS Marzena Persaud, DO - 12/31/2023 EXAMINATION: [...] IMPRESSION: Nonacute portable chest. Workstation ID: [id number] [facility] Radiology Study observation (narrative) [facility] XR Chest PA and Abdomen APOr dered By: Marzena Persaud on 12-31-2023 [facility] Work Phone: CT CERVICAL SPINE WO IV CONT [facility] 11-17-2023 CT CERVICAL SPINE WO IV CONTRAST Interpreted By: Otis Prather, STUDY: CT CERVICAL SPINE WO IV CONTRAST; 11/17/2023 5:38 pm INDICATION: Signs/Symptoms:fall with pain. COMPARISON: CT cervical spine 08/25/2023 ACCESSION NUMBER(S): [id number] ORDERING CLINICIAN: LARRY EUGENE TECHNIQUE: Axial CT [...] the cervical spine. MACRO: None Signed by: Otsi Prather 11/17/2023 5:56 PM Dictation workstation: [id number] [facility] CT Cervical spine WO contras ton 11-17-2023 No evidence for an acute fracture or subluxation of the cervical spine. MACRO: None Signed by: Otis Prather 11/17/2023 5:56 PM Dictation workstation: [id number] [facility] Interpreted By: Otis Love, STUDY: CT CERVICAL SPINE WO IV CONTRAST; 11/17/2023 5:38 pm INDICATION: Signs/Symptoms:fall with pain. COMPARISON: CT cervical spine 08/25/2023 ACCESSION NUMBER(S): [id number] ORDERING CLINICIAN: LARRY EUGENE TECHNIQUE: Axial CT [...] prevertebral and paraspinal soft tissues are unremarkable. [facility] Otis Prather MD - 11/17/2023 Interpreted By: Otis Prather, STUDY: CT CERVICAL SPINE WO IV CONTRAST; 11/17/2023 5:38 pm INDICATION: Signs/Symptoms:fall with pain. COMPARISON: CT cervical spine 08/25/2023 ACCESSION NUMBER(S): [id number] ORDERING CLINICIAN: LARRY EUGENE TECHNIQUE: Axial CT [...] Otis Prather 11/17/2023 5:56 PM Dictation workstation: [id number] [facility] Work Phone: CT Cervical spine WO contras tOrdered By: Otis Prather on 11-17-2023 [facility] Work Phone: CT LUMBAR SPINE WO IV CONTRA STon 11-17-2023 CT LUMBAR SPINE WO IV CONTRAST STUDY: CT Thoracic Spine and Lumbar Spine without IV Contrast; 11/17/2023 5:40 PM INDICATION: Trauma/fall with pain. COMPARISON: None Available. ACCESSION NUMBER(S): [id number], [id number] ORDERING CLINICIAN: LARRY EUGENE TECHNIQUE: CT of [...] Signed by Tenisha Richards MD [facility] CT THORACIC SPINE WO IV CONT RASTon 11-17-2023 CT THORACIC SPINE WO IV CONTRAST STUDY: CT Thoracic Spine and Lumbar Spine without IV Contrast; 11/17/2023 5:40 PM INDICATION: Trauma/fall with pain. COMPARISON: None Available. ACCESSION NUMBER(S): [id number], [id number] ORDERING CLINICIAN: LARRY EUGENE TECHNIQUE: CT of [...] Signed by Tenisha Richards MD [facility] No Panel Informationon 11-17 No evidence of acute fracture or subluxation. No significant degenerative neural canal narrowing. Interstitial changes posteriorly in both lung bases most likely representing atelectasis or fibrosis. Signed by Tenisha Richards MD TELERADIOLOGY STUDY: CT Thoracic Spine and Lumbar Spine without IV Contrast; 11/17/2023 5:40 PM INDICATION: Trauma/fall with pain. COMPARISON: None Available. ACCESSION NUMBER(S): [id number], [id number] ORDERING CLINICIAN: LARRY EUGENE TECHNIQUE: CT of [...] with pain. COMPARISON: None Available. ACCESSION NUMBER(S): [id number], [id number] ORDERING CLINICIAN: LARRY EUGENE TECHNIQUE: CT of [...] or fibrosis. Signed by Tenisha Richards MD [facility] Work Phone: Radiology Study observation (narrative) [facility] Work Phone: No Panel InformationOrdered By: Tenisha Richards on 11-17-2023 [facility] Work Phone: CARDIOLOGY INTERPRETATION OF NUCLEAR STRESSon 10-05-2023 CARDIOLOGY INTERPRETATION [place] [address] [phone], Nuclear Pharmacologic Stress Test Patient Name: REEMA SHAH Ordering Provider: [id number] EVERETT HAYWOOD Study Date: 10/05/2023 Reading Physician: Funmilayo Haywood MD MRN/PID: [id number] Supervising Physician: Funmilayo Haywood MD Fellow: Date of /Age: 11 1975 Fellow: years Gender: F Nurse: NA Admit Date: 10/05/2023 Commercial Project Manager: Otis Becerra RRT Admission Status: Outpatient Drywall Hanger: FLYNN Height: 139.70 cm Technologist: Weight: 72.58 kg Additional Staff: BSA: 1.59 m2 BMI: 37.19 kg/m2 Patient Location: [facility] Stress Lab Study Type: CARDIOLOGY INTERPRETATION OF [...] 5. Nuclear image results are reported separately. [id number] Everett Haywood MD Electronically signed on 10/05/2023 at 3:52:51 PM Final [facility] NM Heart Perfusion W stress and W [...] as stated. This study was interpreted at [facility], [place], [place]. MACRO: None Signed by: Lesly Herrera 10/05/2023 11:36 AM Dictation workstation: [id number] [facility] Interpreted By: Lesly Herrera and Osman Sena STUDY: NUCLEAR STRESS TEST; 10/05/2023 10:23 am INDICATION: Signs/Symptoms: 48-year-old female, preop cardiac assessment. COMPARISON: None. ACCESSION NUMBER(S): [id number] ORDERING CLINICIAN: EVERETT HAYWOOD TECHNIQUE: DIVISION OF [...] correction CT images demonstrate grossly no abnormality. [facility] Lesly Herrera MD - 10/05/2023 Interpreted By: Lesly Herrera and Osman Sena STUDY: NUCLEAR STRESS TEST; 10/05/2023 10:23 am INDICATION: Signs/Symptoms: 48-year-old female, preop cardiac assessment. COMPARISON: None. ACCESSION NUMBER(S): [id number] ORDERING CLINICIAN: EVERETT HAYWOOD TECHNIQUE: DIVISION OF [...] as stated. This study was interpreted at [facility], [place], [place]. MACRO: None Signed by: Lesly Herrera 10/05/2023 11:36 AM Dictation workstation: [id number] [facility] Work Phone: Radiology Study observation (narrative) [facility] Work Phone: NM Heart Perfusion W stress and W radionuclide IVOrdered By: Lesly Herrera on 10-05-2023 [facility] Work Phone: NUCLEAR STRESS TESTon 2022 NUCLEAR STRESS TEST Interpreted By: Lesly Herrera and Osman Sena STUDY: NUCLEAR STRESS TEST; 10/05/2023 10:23 am INDICATION: Signs/Symptoms: 48-year-old female, preop cardiac assessment. COMPARISON: None. ACCESSION NUMBER(S): [id number] ORDERING CLINICIAN: EVERETT HAYWOOD TECHNIQUE: DIVISION OF [...] as stated. This study was interpreted at [facility], [place], [place]. MACRO: None Signed by: Lesly Herrera 10/05/2023 11:36 AM Dictation workstation: [id number] [facility] No Panel Informationon 10-05 [place] [address] [phone], Nuclear Pharmacologic Stress Test Patient Name: REEMA MARTHENRY Ordering Provider: [id number] EVERETT HAYWOOD Study Date: 10/05/2023 Reading Physician: [id number] Everett Haywood MD MRN/PID: [id number] Supervising Physician: [id number] Everett Haywood MD Fellow: Date of /Age: 11 1975 Fellow: years Gender: F Nurse: FLYNN Admit Date: 10/05/2023 Commercial Project Manager: Otis Becerra SUPERVISOR [employer]ING Admission Status: Outpatient Drywall Hanger: FLYNN Height: 139.70 cm Technologist: Weight: 72.58 kg Additional Staff: BSA: 1.59 m2 BMI: 37.19 kg/m2 Patient Location: [facility] Stress Lab Study Type: CARDIOLOGY INTERPRETATION OF [...] 5. Nuclear image results are reported separately. [id number] Everett Haywood MD Electronically signed on 10/05/2023 at 3:52:51 PM Final Everett Graf MD - 10/05/2023 [place] [address] [phone], Nuclear Pharmacologic Stress Test Patient Name: REEMA SHAH Ordering Provider: [id number] EVERETT HAYWOOD Study Date: 10/05/2023 Reading Physician: [id number] Haywood MD MRN/PID: [id number] Supervising Physician: [id number] Haywood MD Fellow: Date of /Age: 11 1975 Fellow: years Gender: F Nurse: FLYNN Admit Date: 10/05/2023 Commercial Project Manager: Otis Becerra SUPERVISOR [employer]ING [employer]ING Admission Status: Outpatient Drywall Hanger: FLYNN Height: 139.70 cm Technologist: Weight: 72.58 kg Additional Staff: BSA: 1.59 m2 BMI: 37.19 kg/m2 Patient Location: [facility] Study Type: CARDIOLOGY INTERPRETATION OF [...] 5. Nuclear image results are reported separately. [id number] Everett Haywood MD Electronically signed on 10/05/2023 at 3:52:51 PM Final [facility] Work Phone: No Panel InformationOrdered By: Everett Haywood on 10-05-2023 [facility] Work Phone: CT HEAD WO IV CONTRASTon CT HEAD WO IV CONTRAST Interpreted By: Ky Ackerman, STUDY: CT HEAD WO IV CONTRAST 09/16/2023 9:48 am INDICATION: Signs/Symptoms:HEAD INJURY COMPARISON: 08/25/2023 ACCESSION NUMBER(S): [id number] ORDERING CLINICIAN: DIMAS LIN TECHNIQUE: Contiguous axial [...] Ky Ackerman 09/16/2023 10:18 AM Dictation workstation: [id number] [facility] CT Head WO contraston 2022 No acute intracrania l pathology. Signed by: Ky Ackerman 09/16/2023 10:18 AM Dictation workstation: [id number] [facility] Interpreted By: Ky Smart, STUDY: CT HEAD WO IV CONTRAST 09/16/2023 9:48 am INDICATION: Signs/Symptoms:HEAD INJURY COMPARISON: 08/25/2023 ACCESSION NUMBER(S): [id number] ORDERING CLINICIAN: DIMAS LIN TECHNIQUE: Contiguous axial [...] INDICATION: Signs/Symptoms:HEAD INJURY COMPARISON: 08/25/2023 ACCESSION NUMBER(S): [id number] ORDERING CLINICIAN: DIMAS LIN TECHNIQUE: Contiguous axial [...] Ky Ackerman 09/16/2023 10:18 AM Dictation workstation: [id number] [facility] Work Phone: Radiology Study observation (narrative) [facility] Work Phone: CT Head WO contrastOrdered B y: Ky Ackerman on 09-16-2023 [facility] Work Phone: XR ELBOW RIGHT 3+ VIEWSon XR ELBOW RIGHT 3+ VIEWS Interpreted By: Ky Ackerman, STUDY: XR ELBOW RIGHT 3+ VIEWS; 09/16/2023 9:57 am INDICATION: Signs/Symptoms:TRAUMA. COMPARISON: None. ACCESSION NUMBER(S): [id number] ORDERING CLINICIAN: DIMAS LIN FINDINGS: No acute fracture or dislocation of the right elbow. IMPRESSION: No acute osseous findings of the right elbow. Signed by: Ky Ackerman 09/16/2023 10:19 AM Dictation workstation: [id number] [facility] XR Elbow - right 3 Viewson 1 11-16-2022 No acute osseous findings of the right elbow. Signed by: Ky Ackerman 09/16/2023 10:19 AM Dictation workstation: [id number] [facility] Interpreted By: Ky Smart, STUDY: XR ELBOW RIGHT 3+ VIEWS; 09/16/2023 9:57 am INDICATION: Signs/Symptoms:TRAUMA. COMPARISON: None. ACCESSION NUMBER(S): [id number] ORDERING CLINICIAN: DIMAS LIN FINDINGS: No acute fracture or dislocation of the right elbow. [facility] Ky Ackerman MD - 09/16/2023 Interpreted By: Ky Ackerman, STUDY: XR ELBOW RIGHT 3+ VIEWS; 09/16/2023 9:57 am INDICATION: Signs/Symptoms:TRAUMA. COMPARISON: None. ACCESSION NUMBER(S): [id number] ORDERING CLINICIAN: DIMAS LIN FINDINGS: No acute fracture or dislocation of the right elbow. IMPRESSION: No acute osseous findings of the right elbow. Signed by: Ky Ackerman 09/16/2023 10:19 AM Dictation workstation: [id number] [facility] Work Phone: [facility] Work Phone: Radiology Study observation (narrative) [facility] Work Phone: XR Chest 2 Viewson 3 1. No acute cardiopulmonary process. 2. Interval evidence of increased gaping between the beads of LINX device, new on today's radiograph compared to immediate prior radiograph dated 08/25/2023. This could be projectional related to differences in patient positioning. However recommend correlation with patient's symptomatology. Signed by: Christin Oconnor 09/02/2023 10:12 PM Dictation workstation: [id number] [facility] Interpreted By: Christin Oconnor, STUDY: XR CHEST 2 VIEWS; INDICATION: Signs/Symptoms:Preop. COMPARISON: Chest radiograph dated 08/25/2023 ACCESSION NUMBER(S): [id number] ORDERING CLINICIAN: MATTHEW PÉREZ FINDINGS: The cardiac [...] radiograph compared to prior radiograph dated 08/25/2023. MMODAL Christin Oconnor MD - 09/02/2023 Interpreted By: Christin Oconnor, STUDY: XR CHEST 2 VIEWS; INDICATION: Signs/Symptoms:Preop. COMPARISON: Chest radiograph dated 08/25/2023 ACCESSION NUMBER(S): [id number] ORDERING CLINICIAN: MATTHEW PÉREZ FINDINGS: The cardiac [...] Christin Oconnor 09/02/2023 10:12 PM Dictation workstation: [id number] [facility] Work Phone: XR Chest 2 ViewsOrdered By: Christin Oconnor on 09-02-2023 [facility] Work Phone: Blood type and Indirect anti body screen panel (Bld)on 09-01-2023 ABO group Nom (Bld) O Normal [facility] Comment on above: Performed By: #### 3 4532-2 #### ANKIT MURPHY ([id number]) [facility] ([facility]) [address] [place] [address] [place] Blood group antibody screen Ql Negative Normal [facility] Comment on above: Performed By: #### 3 4532-2 #### ANKIT MURPHY ([id number]) [facility] ([facility]) [address] [place] [address] [place] D Ag Ql (Bld) Positive [facility] Comment on above: Performed By: #### 3 4532-2 #### ANKIT MURPHY ([id number]) [facility] ([facility]) [address] [place] [address] [place] Comprehensive metabolic 2000 panelon 09-01-2023 Albumin BCP dye [Mass/Vol] 4.4 g/dL Normal 3.4-5.[address] [facility] Comment on above: Performed By: #### 2 4323-8 #### ANKIT MURPHY ([id number]) [facility] ([facility]) [address] [place] [address] ALP [Catalytic activity/Vol] 61 U/L Normal 33-[address] [facility] Comment on above: Performed By: #### 2 432-8 #### ANKIT MURPHY ([id number]) [facility] ([facility]) [address] [place] [address] ALT With P-5'-P [Catalytic activity/Vol] 12 U/L Normal 7-[address] [facility] Comment on above: Result Comment: Marjan ents treated with Sulfasalazine may generate falsely decreased results for ALT. Performed By: #### 2 4323-8 #### ANKIT MURPHY ([id number]) [facility] ([facility]) [address] [place] [address] Anion gap [Moles/Vol] 13 mmol/L Normal 10-20 [place] Comment on above: Performed By: #### 2 4323-8 #### ANKIT MURPHY ([id number]) [facility] ([facility]) [address] [place] [address] AST With P-5'-P [Catalytic activity/Vol] 15 U/L Normal 9-[address] [facility] Comment on above: Performed By: #### 2 4323-8 #### ANKIT MURPHY ([id number]) [facility] ([facility]) [address] [place] [address] Bilirubin [Mass/Vol] 0.3 mg/dL Normal 0.0-1.2 [facility] Comment on above: Performed By: #### 2 4323-8 #### ANKIT MURPHY ([id number]) [facility] ([facility]) [address] [place] [address] Calcium [Mass/Vol] 9.3 mg/dL Normal 8.6-10.3 [facility] Comment on above: Performed By: #### 2 432-8 #### ANKIT MURPHY ([id number]) [facility] ([facility]) [address] [place] [address] Chloride [Moles/Vol] 102 mmol/L Normal 98-107 [facility] Comment on above: Performed By: #### 2 432-8 #### ANKIT MURPHY ([id number]) [facility] ([facility]) [address] [place] [address] CO2 [Moles/Vol] 30 mmol/L Normal 21-32 [facility] Comment on above: Performed By: #### 2 4323-8 #### ANKIT MURPHY ([id number]) [facility] ([facility]) [address] [place] [address] Creatinine [Mass/Vol] 1.28 mg/dL High 0.50-1.05 [place] Comment on above: Performed By: #### 2 4323-8 #### ANKIT MURPHY ([id number]) [facility] ([facility]) [address] [place] [address] GFR/1.73 sq M.predicted MDRD (S/P/Bld) [Vol rate/Area] 51 mL/min/1.73m*2 Low >[address] [facility] Comment on above: Result Comment: Calc ulations of estimated GFR are performed using the 2020 CKD-EPI Study Refit equation without the race variable for the IDMS-Traceable creatinine methods. https://jasn.asnjournals.org/content//ASN.841217 5915 Performed By: #### 2 4323-8 #### ANKIT MURPHY ([id number]) [facility] ([facility]) [address] [place] [address] Glucose [Mass/Vol] 92 mg/dL Normal 74-99 [facility] Comment on above: Performed By: #### 2 4323-8 #### ANKIT MURPHY ([id number]) [facility] ([facility]) [address] [place] [address] Potassium [Moles/Vol] 4.8 mmol/L Normal 3.5-5.3 [place] Comment on above: Performed By: #### 2 4323-8 #### ANKIT MURPHY ([id number]) [facility] ([facility]) [address] [place] [address] Protein [Mass/Vol] 6.7 g/dL Normal 6.4-8.2 [facility] Comment on above: Performed By: #### 2 4323-8 #### ANKIT MURPHY ([id number]) [facility] ([facility]) [address] [place] [address] Sodium [Moles/Vol] 140 mmol/L Normal 136-145 [facility] Comment on above: Performed By: #### 2 4323-8 #### ANKIT MURPHY ([id number]) [facility] ([facility]) [address] [place] [address] Urea nitrogen [Mass/Vol] 25 mg/dL High 6-[address] [facility] Comment on above: Performed By: #### 2 3-8 #### ANKIT MURPHY ([id number]) [facility] ([facility]) [address] [place] [address] ECG 12 LeadOrdered By: Sg Rushing on 09-01-2023 Atrial Rate 63 BPM [facility] Work Phone: P [place] 38 degrees [facility] Work Phone: P Offset 188 ms [facility] Work Phone: P Onset 139 ms [facility] Work Phone: WI Interval 166 ms [facility] Work Phone: Q Onset 222 ms [facility] Work Phone: QRS Count 11 beats [facility] Work Phone: QRS Duration 80 ms [facility] Work Phone: QT Interval 444 ms [facility] Work Phone: QTC Calculation(Bazett) 454 ms [facility] Work Phone: QTC Fredericia 451 ms [facility] Work Phone: R [place] 63 degrees [facility] Work Phone: T [place] 70 degrees [facility] Work Phone: T Offset 444 ms [facility] Work Phone: Ventricular Rate 63 BPM [facility] Work Phone: [facility] Work Phone: ECG 12 Leadon 09-01-2023 Normal sinus rhythm Possible Anterior infarct (cited on or before 01-SEP-2023) Abnormal ECG When compared with ECG of 01-SEP-2023 08:11, (unconfirmed) No significant change was found Confirmed by Solo Rushing ([id number]) on 09/01/2023 11:03:57 AM MUSE Solo Rushing MD - 09/01/2023 Normal sinus rhythm Possible Anterior infarct (cited on or before 01-SEP-2023) Abnormal ECG When compared with ECG of 01-SEP-2023 08:11, (unconfirmed) No significant change was found Confirmed by Solo Rushing ([id number]) on 09/01/2023 11:03:57 AM [facility] Work Phone: ECG 12-LEADon 09-01-2023 ECG 12-LEAD Ventricular Rate 63 Atrial Rate 63 P-R Interval 166 QRS Duration 80 Q-T Interval 444 QTC Calculation(Bazett) 454 P Washington 38 R [place] 63 T [place] 70 QRS Count 11 Q Onset 222 P Onset 139 P Offset 188 T Offset 444 QTC Fredericia 451 Diagnosis Normal sinus rhythm Possible Anterior infarct (cited on or before 01-SEP-2023) Abnormal ECG When compared with ECG of 01-SEP-2023 08:11, (unconfirmed) No significant change was found Confirmed by Solo Rushing ([id number]) on 09/01/2023 11:03:57 AM Normal [facility] HbA1c (Bld) [Mass fraction]o n 09-01-2023 Average glucose Estimated from glycated hemoglobin (Bld) [Mass/Vol] 91 mg/dL Normal Not Established [facility] Comment on above: Order Comment: Diagn osis of Diabetes-Adults Non-Diabetic: < or = 5.6% Increased risk for developing diabetes: 5.7-6.4% Diagnostic of diabetes: > or = 6.5% Monitoring of Diabetes Age (y)....................... Therapeutic Goal (%) Adults: >18.........................<7.0 Pediatrics: 13-18...................<7.5 Pediatrics: 7-12....................<8.0 Pediatrics: 0-6..................... 7.5-8.5 [place] [employer]. Diabetes Care 33(S1), Oct 2009 Performed By: #### 4 548-4 #### PHAM JEFFREY ([id number]) [facility] ([facility]) [address] [place] [address] Hemoglobin A1c/Hemoglobin.to kj 09-01-2023 HbA1c (Bld) [Mass fraction] 4.8 % Normal see below [facility] Comment on above: Order Comment: Diagn osis of Diabetes-Adults Non-Diabetic: < or = 5.6% Increased risk for developing diabetes: 5.7-6.4% Diagnostic of diabetes: > or = 6.5% Monitoring of Diabetes Age (y)....................... Therapeutic Goal (%) Adults: >18.........................<7.0 Pediatrics: 13-18...................<7.5 Pediatrics: 7-12....................<8.0 Pediatrics: 0-6..................... 7.5-8.5 [place] [employer]. Diabetes Care 33(S1), Oct 2009 Performed By: #### 4 548-4 #### PHAM JEFFREY ([id number]) [facility] ([facility]) [address] [place] [address] XR CHEST 2 VIEWSon 3 XR CHEST 2 VIEWS Interpreted By: Christin Oconnor, STUDY: XR CHEST 2 VIEWS; INDICATION: Signs/Symptoms:Preop. COMPARISON: Chest radiograph dated 08/25/2023 ACCESSION NUMBER(S): [id number] ORDERING CLINICIAN: MATTHEW PÉREZ FINDINGS: The cardiac [...] Christin Oconnor 09/02/2023 10:12 PM Dictation workstation: [id number] [facility] XR Chest 2 Viewson 3 Radiology Study observation (narrative) [facility] Work Phone: CT CERVICAL SPINE WO IV CONT Prakash 08-25-2023 CT CERVICAL SPINE WO IV CONTRAST Interpreted By: Omar Castaneda, STUDY: CT HEAD WO IV CONTRAST; CT CERVICAL SPINE WO IV CONTRAST; 08/25/2023 12:01 pm INDICATION: Trauma. Signs/Symptoms:FALL. COMPARISON: January 22, 2020 and July 15, [address] examinations. January 21, 2023 CT cervical spine. ACCESSION NUMBER(S): [id number]; [id number] ORDERING CLINICIAN: ABHI RICHARDS TECHNIQUE: Axial noncontrast [...] detected IVH (intraventricular hemorrhage): No Reference: Wilder B, Jaxson RS, Nikki M, et al. The BIG (brain injury guidelines) project: defining the management of traumatic brain injury by acute care surgeons. J Trauma Acute Care Surg. 2014;76:320u045. IMPRESSION: No acute intracranial abnormality was identified. No detected fracture. Stable CT findings as reported. MACRO: None Signed by: Omar Castaneda 08/25/2023 12:24 PM Dictation workstation: [id number] [facility] CT HEAD WO IV CONTRASTon CT HEAD WO IV CONTRAST Interpreted By: Omar Castaneda, STUDY: CT HEAD WO IV CONTRAST; CT CERVICAL SPINE WO IV CONTRAST; 08/25/2023 12:01 pm INDICATION: Trauma. Signs/Symptoms:FALL. COMPARISON: January 22, 2020 and July 15, [address] examinations. January 21, 2023 CT cervical spine. ACCESSION NUMBER(S): [id number]; [id number] ORDERING CLINICIAN: ABHI RICHARDS TECHNIQUE: Axial noncontrast [...] care surgeons. J Trauma Acute Care Surg. 2014;76:918o076. IMPRESSION: No acute intracranial abnormality was identified. No detected fracture. Stable CT findings as reported. MACRO: None Signed by: Omar Castaneda 08/25/2023 12:24 PM Dictation workstation: [id number] [facility] No Panel Informationon 08-25 No acute intracrania l abnormality was identified. No detected fracture. Stable CT findings as reported. MACRO: None Signed by: Omar Castaneda 08/25/2023 12:24 PM Dictation workstation: [id number] [facility] Interpreted By: Omar Castaneda, STUDY: CT HEAD WO IV CONTRAST; CT CERVICAL SPINE WO IV CONTRAST; 08/25/2023 12:01 pm INDICATION: Trauma. Signs/Symptoms:FALL. COMPARISON: January 22, 2020 and July 15, [address] examinations. January 21, 2023 CT cervical spine. ACCESSION NUMBER(S): [id number]; [id number] ORDERING CLINICIAN: ABHI RICHARDS TECHNIQUE: Axial noncontrast [...] detected IVH (intraventricular hemorrhage): No Reference: Wilder B, Jaxson RS, Nikki M, et al. The BIG (brain injury guidelines) project: defining the management of traumatic brain injury by acute care surgeons. J Trauma Acute Care Surg. 2014;76:061x513. [facility] Omar Castaneda MD - 08/25/2023 Interpreted By: Omar Castaneda, STUDY: CT HEAD WO IV CONTRAST; CT CERVICAL SPINE WO IV CONTRAST; 08/25/2023 12:01 pm INDICATION: Trauma. Signs/Symptoms:FALL. COMPARISON: January 22, 2020 and July 15, [address] examinations. January 21, 2023 CT cervical spine. ACCESSION NUMBER(S): [id number]; [id number] ORDERING CLINICIAN: ABHI RICHARDS TECHNIQUE: Axial noncontrast [...] No Reference: Wilder Zavala, Jaxson RS, Nikki Rubio, et al. The BIG (brain injury guidelines) project: defining the management of traumatic brain injury by acute care surgeons. J Trauma Acute Care Surg. 2014;76:448r761. IMPRESSION: No acute intracranial abnormality was identified. No detected fracture. Stable CT findings as reported. MACRO: None Signed by: Omar Castaneda 08/25/2023 12:24 PM Dictation workstation: [id number] [facility] Work Phone: Radiology Study observation (narrative) [facility] Work Phone: No Panel InformationOrdered By: Omar Castaneda on 08-25-2023 [facility] Work Phone: XR RIBS RIGHT 2 VIEWS WITH C HEST ANTEROPOSTERIORon 08-25-2023 XR RIBS RIGHT 2 VIEWS WITH CHEST ANTEROPOSTERIOR Interpreted By: Omar Castaneda, STUDY: XR RIBS RIGHT 2 VIEWS WITH CHEST ANTEROPOSTERIOR; ; 08/25/2023 12:08 pm INDICATION: Signs/Symptoms:FALL. COMPARISON: August 13, 2023 chest radiograph. ACCESSION NUMBER(S): [id number] ORDERING CLINICIAN: ABHI RICHARDS FINDINGS: Five views are submitted. The lungs are clear. Unchanged cardiomediastinal silhouette. No significant change distal esophageal LINX device. No detected fracture. Visualized portion of the abdomen is unremarkable. IMPRESSION: No acute detected abnormality. MACRO: None Signed by: Omar Castaneda 08/25/2023 12:26 PM Dictation workstation: [id number] [facility] XR Ribs - right 2 Viewson No acute detected abnormality. MACRO: None Signed by: Omar Castaneda 08/25/2023 12:26 PM Dictation workstation: [id number] [facility] Interpreted By: Omar Castaneda, STUDY: XR RIBS RIGHT 2 VIEWS WITH CHEST ANTEROPOSTERIOR; ; 08/25/2023 12:08 pm INDICATION: Signs/Symptoms:FALL. COMPARISON: August 13, 2023 chest radiograph. ACCESSION NUMBER(S): [id number] ORDERING CLINICIAN: ABHI RICHARDS FINDINGS: Five views [...] August 13, 2023 chest radiograph. ACCESSION NUMBER(S): [id number] ORDERING CLINICIAN: ABHI RICHARDS FINDINGS: Five views are submitted. The lungs are clear. Unchanged cardiomediastinal silhouette. No significant change distal esophageal LINX device. No detected fracture. Visualized portion of the abdomen is unremarkable. IMPRESSION: No acute detected abnormality. MACRO: None Signed by: Omar Castaneda 08/25/2023 12:26 PM Dictation workstation: [id number] [facility] Work Phone: [facility] Work Phone: Radiology Study observation (narrative) [facility] Work Phone: XR SACRUM COCCYX 2+ VIEWSon 08-25-2023 XR SACRUM COCCYX 2+ VIEWS Interpreted By: Omar Castaneda, STUDY: XR SACRUM COCCYX 2+ VIEWS; ; 08/25/2023 12:08 pm INDICATION: Signs/Symptoms:FALL. COMPARISON: None. ACCESSION NUMBER(S): [id number] ORDERING CLINICIAN: ABHI RICHARDS FINDINGS: Frontal and lateral views are submitted. Four views obtained. No detected fracture or subluxation. Heights of the visualized vertebra are maintained. Sacroiliac joints appear unremarkable. IMPRESSION: No detected fracture. MACRO: None Signed by: Omar Castaneda 08/25/2023 12:28 PM Dictation workstation: [id number] [facility] XR SHOULDER RIGHT 2+ VIEWSon 08-25-2023 XR SHOULDER RIGHT 2+ VIEWS Interpreted By: Omar Castaneda, STUDY: XR SHOULDER RIGHT 2+ VIEWS; ; 08/25/2023 12:07 pm INDICATION: Signs/Symptoms:FALL. COMPARISON: August 13, 2023 chest radiograph ACCESSION NUMBER(S): [id number] ORDERING CLINICIAN: ABHI RICHARDS FINDINGS: Two views demonstrate no detected fracture or dislocation. Mild degenerative spur acromioclavicular joint appears stable. No unusual periarticular abnormalities. IMPRESSION: No detected fracture or dislocation. MACRO: None Signed by: Omar Castaneda 08/25/2023 12:27 PM Dictation workstation: [id number] [facility] XR Sacrum and Coccyx 2 Views on 08-25-2023 No detected fracture . MACRO: None Signed by: Omar Castaneda 08/25/2023 12:28 PM Dictation workstation: [id number] [facility] Interpreted By: Omar Castaneda, STUDY: XR SACRUM COCCYX 2+ VIEWS; ; 08/25/2023 12:08 pm INDICATION: Signs/Symptoms:FALL. COMPARISON: None. ACCESSION NUMBER(S): [id number] ORDERING CLINICIAN: ABHI RICHARDS FINDINGS: Frontal and lateral views are submitted. Four views obtained. No detected fracture or subluxation. Heights of the visualized vertebra are maintained. Sacroiliac joints appear unremarkable. [facility] Omar Castaneda MD - 08/25/2023 Interpreted By: Omar Castaneda, STUDY: XR SACRUM COCCYX 2+ VIEWS; ; 08/25/2023 12:08 pm INDICATION: Signs/Symptoms:FALL. COMPARISON: None. ACCESSION NUMBER(S): [id number] ORDERING CLINICIAN: ABHI RICHARDS FINDINGS: Frontal and lateral views are submitted. Four views obtained. No detected fracture or subluxation. Heights of the visualized vertebra are maintained. Sacroiliac joints appear unremarkable. IMPRESSION: No detected fracture. MACRO: None Signed by: Omar Castaneda 08/25/2023 12:28 PM Dictation workstation: [id number] [facility] Work Phone: [facility] Work Phone: Radiology Study observation (narrative) [facility] Work Phone: XR Shoulder - right 2 Viewso n 08-25-2023 No detected fracture or dislocation. MACRO: None Signed by: Omar Castaneda 08/25/2023 12:27 PM Dictation workstation: [id number] [facility] Interpreted By: Omar Castaneda, STUDY: XR SHOULDER RIGHT 2+ VIEWS; ; 08/25/2023 12:07 pm INDICATION: Signs/Symptoms:FALL. COMPARISON: August 13, 2023 chest radiograph ACCESSION NUMBER(S): [id number] ORDERING CLINICIAN: ABHI RICHARDS FINDINGS: Two views demonstrate no detected fracture or dislocation. Mild degenerative spur acromioclavicular joint appears stable. No unusual periarticular abnormalities. [facility] Omar Castaneda MD - 08/25/2023 Interpreted By: Omar Castaneda, STUDY: XR SHOULDER RIGHT 2+ VIEWS; ; 08/25/2023 12:07 pm INDICATION: Signs/Symptoms:FALL. COMPARISON: August 13, 2023 chest radiograph ACCESSION NUMBER(S): [id number] ORDERING CLINICIAN: ABHI RICHARDS FINDINGS: Two views demonstrate no detected fracture or dislocation. Mild degenerative spur acromioclavicular joint appears stable. No unusual periarticular abnormalities. IMPRESSION: No detected fracture or dislocation. MACRO: None Signed by: Omar Castaneda 08/25/2023 12:27 PM Dictation workstation: [id number] [facility] Work Phone: [facility] Work Phone: Radiology Study observation (narrative) [facility] Work Phone: Bacteria identifiedon 2022 Bacteria identified Cx Nom (U) Test: Urine Culture Specimen Source: Clean Catch/Voided Specimen Type: Urine Specimen Date: 08/13/2023 10:16 AM Result Date: 08/14/2023 2:21 PM Result Status: Final result Abnormal: No Resulting Lab: [facility] [address] [place] [address] CULTURE No growth Normal [facility] Comment on above: Performed By: #### 2 4321-2 #### PHAM JEFFREY ([id number]) [facility] ([facility]) [address] [place] [address] CBC W Auto Differential pane l (Bld)on 08-13-2023 Basophils (Bld) [#/Vol] 0.02 10*3/uL [facility] Basophils/100 WBC (Bld) 0.4 % 0.0 - 2.0 % [facility] Eosinophils (Bld) [#/Vol] 0.14 10*3/uL [facility] Eosinophils/100 WBC (Bld) 2.7 % 0.0 - 6.0 % [facility] Erythrocyte distribution width (RBC) [Ratio] 12.2 % 11.5 - 14.5 % [facility] Hematocrit (Bld) [Volume fraction] 40.6 % 36.0 - 46.0 % [facility] Hemoglobin (Bld) [Mass/Vol] 13.9 g/dL 12.0 - 16.0 g/dL [facility] Immature granulocytes (Bld) [#/Vol] 0.03 10*3/uL [facility] Immature granulocytes/100 WBC (Bld) 0.6 % 0.0 - 0.9 % [facility] Comment on above: Immature Granulocyte Count (IG) includes promyelocytes, myelocytes and metamyelocytes but does not include bands. Percent differential counts (%) should be interpreted in the context of the absolute cell counts (cells/UL). Interpretation and review of laboratory results Abnormal [facility] Lymphocytes (Bld) [#/Vol] 1.78 10*3/uL [facility] Lymphocytes/100 WBC (Bld) 33.8 % 13.0 - 44.0 % [facility] MCH (RBC) [Entitic mass] 31.3 pg 26.0 - 34.0 pg [facility] MCHC (RBC) [Mass/Vol] 34.2 g/dL 32.0 - 36.0 g/dL [facility] MCV (RBC) [Entitic vol] 91 fL 80 - 100 fL [facility] Monocytes (Bld) [#/Vol] 0.42 10*3/uL [facility] Monocytes/100 WBC (Bld) 8.0 % 2.0 - 10.0 % [facility] Neutrophils (Bld) [#/Vol] 2.87 10*3/uL [facility] Comment on above: Percent differential counts (%) should be interpreted in the context of the absolute cell counts (cells/uL). Neutrophils/100 WBC (Bld) 54.5 % 40.0 - 80.0 % [facility] Nucleated RBC/100 WBC (Bld) [Ratio] 0.0 % [facility] Platelet mean volume (Bld) [Entitic vol] 10.7 fL 7.5 - 11.5 fL [facility] Platelets (Bld) [#/Vol] 99 10*3/uL Low [facility] Comment on above: Platelet count verif ied by smear review. no plt clumps or clots seen RBC (Bld) [#/Vol] 4.44 10*6/uL [facility] WBC (Bld) [#/Vol] 5.3 10*3/uL [facility] Basophils (Bld) [#/Vol] 0.02 x10*3/uL Normal 0.00-0.10 [facility] Comment on above: Performed By: #### 5 7021-8 #### ANKIT MURPHY ([id number]) [facility] ([facility]) [address] [place] [address] 43835 Basophils/100 WBC (Bld) 0.4 % Normal 0.0-2.0 [facility] Comment on above: Performed By: #### 7021-8 #### ANKIT MURPHY ([id number]) [facility] ([facility]) [address] [place] [address] 51549 Eosinophils (Bld) [#/Vol] 0.14 x10*3/uL Normal 0.00-0.70 [facility] Comment on above: Performed By: #### 5 7021-8 #### ANKIT MURPHY ([id number]) [facility] ([facility]) [address] [place] [address] 46603 Eosinophils/100 WBC (Bld) 2.7 % Normal 0.0-6.0 [facility] Comment on above: Performed By: #### 5 7021-8 #### ANKIT MURPHY ([id number]) [facility] ([facility]) [address] [place] [address] 04304 Erythrocyte distribution width (RBC) [Ratio] 12.2 % Normal 11.5-14.5 [facility] Comment on above: Performed By: #### 5 7021-8 #### ANKIT MURPHY ([id number]) [facility] ([facility]) [address] [place] [address] 91616 Hematocrit (Bld) [Volume fraction] 40.6 % Normal 36.0-46.0 [facility] Comment on above: Performed By: #### 5 7021-8 #### ANKIT MURPHY ([id number]) [facility] ([facility]) [address] [place] [address] 34061 Hemoglobin (Bld) [Mass/Vol] 13.9 g/dL Normal 12.0-16.0 [facility] Comment on above: Performed By: #### 7021-8 #### ANKIT MURPHY ([id number]) [facility] ([facility]) [address] [place] [address] 40216 Immature granulocytes (Bld) [#/Vol] 0.03 x10*3/uL Normal 0.00-0.70 [facility] Comment on above: Performed By: #### 5 7021-8 #### ANKIT MURPHY ([id number]) [facility] ([facility]) [address] [place] [address] 15097 Immature granulocytes/100 WBC (Bld) 0.6 % Normal 0.0-0.9 [facility] Comment on above: Result Comment: Suze ture Granulocyte Count (IG) includes promyelocytes, myelocytes and metamyelocytes but does not include bands. Percent differential counts (%) should be interpreted in the context of the absolute cell counts (cells/UL). Performed By: #### 5 7021-8 #### ANKIT MURPHY ([id number]) [facility] ([facility]) [address] [place] [address] 92353 Lymphocytes (Bld) [#/Vol] 1.78 x10*3/uL Normal 1.20-4.80 [facility] Comment on above: Performed By: #### 5 7021-8 #### ANKIT MURPHY ([id number]) [facility] ([facility]) [address] [place] [address] 24601 Lymphocytes/100 WBC (Bld) 33.8 % Normal 13.0-44.0 [facility] Comment on above: Performed By: #### 5 7021-8 #### ANKIT MURPHY ([id number]) [facility] ([facility]) [address] [place] [address] 62722 MCH (RBC) [Entitic mass] 31.3 pg Normal 26.0-34.0 [facility] Comment on above: Performed By: #### 5 7021-8 #### ANKIT MURPHY ([id number]) [facility] ([facility]) [address] [place] [address] 97034 MCHC (RBC) [Mass/Vol] 34.2 g/dL Normal 32.0-36.0 [facility] Comment on above: Performed By: #### 5 7021-8 #### ANKIT MURPHY ([id number]) [facility] ([facility]) [address] [place] [address] 07561 MCV (RBC) [Entitic vol] 91 fL Normal 80-100 [facility] Comment on above: Performed By: #### 5 7021-8 #### ANKIT MURPHY ([id number]) [facility] ([facility]) [address] [place] [address] 94608 Monocytes (Bld) [#/Vol] 0.42 x10*3/uL Normal 0.10-1.00 [facility] Comment on above: Performed By: #### 5 7021-8 #### ANKIT MURPHY ([id number]) [facility] ([facility]) [address] [place] [address] 35098 Monocytes/100 WBC (Bld) 8.0 % Normal 2.0-10.0 [facility] Comment on above: Performed By: #### 5 7021-8 #### ANKIT MURPHY ([id number]) [facility] ([facility]) [address] [place] [address] 57235 Neutrophils (Bld) [#/Vol] 2.87 x10*3/uL Normal 1.20-7.70 [facility] Comment on above: Result Comment: Perc ent differential counts (%) should be interpreted in the context of the absolute cell counts (cells/uL). Performed By: #### 5 7021-8 #### ANKIT MURPHY ([id number]) [facility] ([facility]) [address] [place] [address] 46820 Neutrophils/100 WBC (Bld) 54.5 % Normal 40.0-80.0 [facility] Comment on above: Performed By: #### 5 7021-8 #### ANKIT MURPHY ([id number]) [facility] ([facility]) [address] [place] [address] 99146 Nucleated RBC/100 WBC (Bld) [Ratio] 0.0 /100 WBCs Normal 0.0-0.0 [facility] Comment on above: Performed By: #### 5 7021-8 #### ANKIT MURPHY ([id number]) [facility] ([facility]) [address] [place] [address] Platelet mean volume (Bld) [Entitic vol] 10.7 fL Normal 7.5-11.5 [facility] Comment on above: Performed By: #### 5 7021-8 #### ANKIT MURPHY ([id number]) [facility] ([facility]) [address] [place] [address] Platelets (Bld) [#/Vol] 99 x10*3/uL Low 150-450 [facility] Comment on above: Result Comment: Plat elet count verified by smear review. no plt clumps or clots seen Performed By: #### 5 7021-8 #### ANKIT MURPHY ([id number]) [facility] ([facility]) [address] [place] [address] RBC (Bld) [#/Vol] 4.44 x10*6/uL Normal 4.00-5.20 [facility] Comment on above: Performed By: #### 5 7021-8 #### ANKIT MURPHY ([id number]) [facility] ([facility]) [address] [place] [address] WBC (Bld) [#/Vol] 5.3 x10*3/uL Normal 4.4-11.3 [facility] Comment on above: Performed By: #### 5 7021-8 #### ANKIT MURPHY ([id number]) [facility] ([facility]) [address] [place] [address] Comprehensive metabolic 2000 panelon 08-13-2023 Albumin BCP dye [Mass/Vol] 4.1 g/dL 3.4 - 5.0 g/dL [facility] ALP [Catalytic activity/Vol] 65 U/L 33 - 110 U/L [facility] ALT With P-5'-P [Catalytic activity/Vol] 14 U/L 7 - 45 U/L [facility] Comment on above: Patients treated wit h Sulfasalazine may generate falsely decreased results for ALT. Anion gap [Moles/Vol] 13 mmol/L 10 - 2 0 mmol/L [facility] AST With P-5'-P [Catalytic activity/Vol] 16 U/L 9 - 39 U/L [facility] Bilirubin [Mass/Vol] 0.3 mg/dL 0.0 - 1 .2 mg/dL [facility] Calcium [Mass/Vol] 9.1 mg/dL 8.6 - 10. 3 mg/dL [facility] Chloride [Moles/Vol] 104 mmol/L 98 - 10 7 mmol/L [facility] CO2 [Moles/Vol] 23 mmol/L 21 - 32 mmol/L [facility] Creatinine [Mass/Vol] 1.28 mg/dL High 0.50 - 1.05 mg/dL [facility] GFR/1.73 sq M.predicted MDRD (S/P/Bld) [Vol rate/Area] 51 mL/min/{1.73_m2} Low - PINF [facility] Comment on above: Calculations of frieda mated GFR are performed using the 2020 CKD-EPI Study Refit equation without the race variable for the IDMS-Traceable creatinine methods. https://jasn.asnjournals.org/content/early/ASN.859755 0212 Glucose [Mass/Vol] 133 mg/dL High 74 - 99 mg/dL [facility] Interpretation and review of laboratory results Abnormal [facility] Potassium [Moles/Vol] 3.7 mmol/L 3.5 - 5.3 mmol/L [facility] Protein [Mass/Vol] 6.2 g/dL Low 6.4 - 8.2 g/dL [facility] Sodium [Moles/Vol] 136 mmol/L 136 - 145 mmol/L [facility] Urea nitrogen [Mass/Vol] 24 mg/dL High 6 - 23 mg/dL [facility] Albumin BCP dye [Mass/Vol] 4.1 g/dL Normal 3.4-5.0 [facility] Comment on above: Performed By: #### 2 4323-8 #### ANKIT MURPHY ([id number]) [facility] ([facility]) [address] [place] [address] ALP [Catalytic activity/Vol] 65 U/L Normal 33-110 [facility] Comment on above: Performed By: #### 2 432-8 #### ANKIT MURPHY ([id number]) [facility] ([facility]) [address] [place] [address] ALT With P-5'-P [Catalytic activity/Vol] 14 U/L Normal 7-45 [facility] Comment on above: Result Comment: Marjan ents treated with Sulfasalazine may generate falsely decreased results for ALT. Performed By: #### 2 4322-8 #### ANKIT MURPHY ([id number]) [facility] ([facility]) [address] [place] [address] Anion gap [Moles/Vol] 13 mmol/L Normal 10-20 [facility] Comment on above: Performed By: #### 2 4322-8 #### ANKIT MURPHY ([id number]) [facility] ([facility]) [address] [place] [address] AST With P-5'-P [Catalytic activity/Vol] 16 U/L Normal 9-39 [facility] Comment on above: Performed By: #### 2 432-8 #### ANKIT MURPHY ([id number]) [facility] ([facility]) [address] [place] [address] Bilirubin [Mass/Vol] 0.3 mg/dL Normal 0.0-1.2 [facility] Comment on above: Performed By: #### 2 432-8 #### ANKIT MURPHY ([id number]) [facility] ([facility]) [address] [place] [address] Calcium [Mass/Vol] 9.1 mg/dL Normal 8.6-10.3 [facility] Comment on above: Performed By: #### 2 432-8 #### ANKIT MURPHY ([id number]) [facility] ([facility]) [address] [place] [address] Chloride [Moles/Vol] 104 mmol/L Normal 98-107 [facility] Comment on above: Performed By: #### 2 4323-8 #### ANKIT MURPHY ([id number]) [facility] ([facility]) [facility] [place] [address] CO2 [Moles/Vol] 23 mmol/L Normal 21-32 [facility] Comment on above: Performed By: #### 2 4323-8 #### ANKIT MURPHY ([id number]) [facility] ([facility]) [address] [place] [address] 89280 Creatinine [Mass/Vol] 1.28 mg/dL High 0.50-1.05 [facility] Comment on above: Performed By: #### 2 4323-8 #### ANKIT MURPHY ([id number]) [facility] ([facility]) [address] [place] [address] 39143 GFR/1.73 sq M.predicted MDRD (S/P/Bld) [Vol rate/Area] 51 mL/min/1.73m*2 Low >60 [facility] Comment on above: Result Comment: Calc ulations of estimated GFR are performed using the 2020 CKD-EPI Study Refit equation without the race variable for the IDMS-Traceable creatinine methods. https://jasn.asnjournals.org/content/early//ASN.349905 5333 Performed By: #### 2 4323-8 #### ANKIT MURPHY ([id number]) [facility] ([facility]) [address] [place] [address] 05760 Glucose [Mass/Vol] 133 mg/dL High 74-99 [facility] Comment on above: Performed By: #### 2 4323-8 #### ANKIT MURPHY ([id number]) [facility] ([facility]) [address] [place] [address] 48875 Potassium [Moles/Vol] 3.7 mmol/L Normal 3.5-5.3 [facility] Comment on above: Performed By: #### 2 4323-8 #### ANKIT MURPHY ([id number]) [facility] ([facility]) [address] [place] [address] 05348 Protein [Mass/Vol] 6.2 g/dL Low 6.4-8.2 [facility] Comment on above: Performed By: #### 2 4323-8 #### ANKIT MURPHY ([id number]) [facility] ([facility]) [address] [place] [address] 39159 Sodium [Moles/Vol] 136 mmol/L Normal 136-145 [facility] Comment on above: Performed By: #### 2 4323-8 #### ANKIT MURPHY ([id number]) [facility] ([facility]) [address] [place] [address] 96371 Urea nitrogen [Mass/Vol] 24 mg/dL High 6-23 [facility] Comment on above: Performed By: #### 2 4323-8 #### ANKIT MURPHY ([id number]) [facility] ([facility]) [address] [place] [address] 43715 Extra Urine Hill Tubeon 07-19 Extra Tube Hold for add-ons. [facility] Comment on above: Auto resulted. [facility] Lactateon 08-13-2023 Lactate [Moles/Vol] 1.7 mmol/L 0.4 - 2. 0 mmol/L [facility] Lactate [Moles/Vol] 1.7 mmol/L Normal 0.4-2.0 [facility] Comment on above: Order Comment: Venip uncture immediately after or during the administration of Metamizole may lead to falsely low results. Testing should be performed immediately prior to Metamizole dosing. Performed By: #### 2 524-7 #### ANKIT MURPHY ([id number]) [facility] ([facility]) [address] [place] [address] 97741 Lactate [Moles/Vol] 2.5 mmol/L High 0.4 - 2. 0 mmol/L [facility] Lactate [Moles/Vol] 2.5 mmol/L High 0.4-2.0 [facility] Comment on above: Order Comment: Venip uncture immediately after or during the administration of Metamizole may lead to falsely low results. Testing should be performed immediately prior to Metamizole dosing. Performed By: #### 2 524-7 #### PHAM JEFFREY ([id number]) [facility] ([facility]) [address] [place] [address] Lactate [Moles/Vol]on 2022 Interpretation and review of laboratory results Normal [facility] Venipuncture immediately after or during the administration of Metamizole may lead to falsely low results. Testing should be performed immediately prior to Metamizole dosing. [facility] Interpretation and review of laboratory results Abnormal [facility] Venipuncture immediately after or during the administration of Metamizole may lead to falsely low results. Testing should be performed immediately prior to Metamizole dosing. [facility] No Panel Informationon 08-13 Interpretation and review of laboratory results Abnormal [facility] Tropinin I.cardiac panel Hig h sensitivity methodon 08-13-2023 Interpretation and review of laboratory results Normal [facility] Less than 99th percentile of normal [...] performed using a different testing methodology at [facility] than at other [facility]. Direct result comparisons should only be made within the same method. [facility] Interpretation and review of laboratory results Normal [facility] Less than 99th percentile of normal [...] performed using a different testing methodology at [facility] than at other [facility]. Direct result comparisons should only be made within the same method. [facility] Troponin I, High Sensitivity , Initialon 08-13-2023 Tropinin I.cardiac panel High sensitivity method 8 ng/L 0 - 13 ng/L [facility] Troponin I.cardiac panelon 1 Tropinin I.cardiac panel High sensitivity method 8 ng/L Normal 0-13 [facility] Comment on above: Order Comment: Less than [...] performed using a different testing methodology at [facility] than at other [facility]. Direct result comparisons should only be made within the same method. Performed By: #### 8 9577-1 #### PHAM JEFFREY ([id number]) [facility] ([facility]) [address] [place] [address] Tropinin I.cardiac panel High sensitivity method 8 ng/L Normal 0-13 [facility] Comment on above: Order Comment: Less than [...] performed using a different testing methodology at [facility] than at other [facility]. Direct result comparisons should only be made within the same method. Performed By: #### 8 9577-1 #### PHAM JEFFREY ([id number]) [facility] ([facility]) [facility] [place] [address] Troponin, High Sensitivity, 1 Houron 08-13-2023 Tropinin I.cardiac panel High sensitivity method 8 ng/L 0 - 13 ng/L [facility] Urinalysis complete W Reflex Culture panel (U)on 08-13-2023 Appearance (U) Hazy Abnormal Clear [facility] Bilirubin (U) [Mass/Vol] Negative NEGATIVE [facility] Color (U) Yellow Straw, Yellow [facility] Glucose Auto test strip (U) [Mass/Vol] Negative NEGATIVE mg/dL [facility] Ketones (U) [Mass/Vol] Negative NEGATIVE mg/dL [facility] Leukocyte esterase Auto test strip Ql (U) SMALL (1+) Abnormal NEGATIVE [facility] Nitrite Auto test strip Ql (U) Negative NEGATIVE [facility] pH (U) 5.0 [pH] 5.0, 5.5, 6.0, 6.5, 7.0, 7.5, 8.0 [facility] Protein (U) [Mass/Vol] 30 (1+) Abnormal NEGATIVE mg/dL [facility] RBC (U) [#/Vol] Negative NEGATIVE [facility] Specific gravity (U) [Rel density] 1.020 1.005 - 1.035 [facility] Urobilinogen (U) [Mass/Vol] mg/dL NINF - 2.0 mg/dL [facility] Appearance (U) Hazy Normal Clear [facility] Comment on above: Performed By: #### 2 4321-2 #### ANKIT MURPHY ([id number]) [facility] ([facility]) [address] [place] [address] 82547 Bilirubin (U) [Mass/Vol] Negative Normal NEGATIVE [facility] Comment on above: Performed By: #### 2 4321-2 #### ANKIT MURPHY ([id number]) [facility] ([facility]) [address] [place] [address] 26414 Color (U) Yellow Normal Straw, Yellow [facility] Comment on above: Performed By: #### 2 4321-2 #### ANKIT MURPHY ([id number]) [facility] ([facility]) [address] [place] [address] 26450 Glucose Auto test strip (U) [Mass/Vol] Negative Normal NEGATIVE [facility] Comment on above: Performed By: #### 2 4321-2 #### ANKIT MURPHY ([id number]) [facility] ([facility]) [address] [place] [address] 65581 Ketones (U) [Mass/Vol] Negative Normal NEGATIVE [facility] Comment on above: Performed By: #### 2 4321-2 #### ANKIT MURPHY ([id number]) [facility] ([facility]) [address] [place] [address] 34925 Leukocyte esterase Auto test strip Ql (U) SMALL (1+) Abnormal NEGATIVE [facility] Comment on above: Performed By: #### 2 1-2 #### ANKIT MURPHY ([id number]) [facility] ([facility]) [address] [place] [address] 78837 Nitrite Auto test strip Ql (U) Negative Normal NEGATIVE [facility] Comment on above: Performed By: #### 2 4321-2 #### ANKIT MURPHY ([id number]) [facility] ([facility]) [address] [place] [address] 97567 pH (U) 5.0 [pH] Normal 5.0, 5.5, 6.0, 6.5, 7.0, 7.5, 8.0 [facility] Comment on above: Performed By: #### 2 4321-2 #### ANKIT MURPHY ([id number]) [facility] ([facility]) [address] [place] [address] 75713 Protein (U) [Mass/Vol] 30 (1+) Normal NEGATIVE [facility] Comment on above: Performed By: #### 2 4321-2 #### ANKIT MURPHY ([id number]) [facility] ([facility]) [address] [place] [address] 63910 RBC (U) [#/Vol] Negative Normal NEGATIVE [facility] Comment on above: Performed By: #### 2 4321-2 #### ANKIT MURPHY ([id number]) [facility] ([facility]) [address] [place] [address] 00791 Specific gravity (U) [Rel density] 1.020 Normal 1.005-1.035 [facility] Comment on above: Performed By: #### 2 4321-2 #### ANKIT MURPHY ([id number]) [facility] ([facility]) [address] [place] [address] 13061 Urobilinogen (U) [Mass/Vol] mg/dL Normal <2.0 [facility] Comment on above: Performed By: #### 2 4321-2 #### ANKIT MURPHY ([id number]) [facility] ([facility]) [address] [place] [address] 80517 Urinalysis microscopic panel Auto Ql (U)on 08-13-2023 Bacteria Auto (Urine sed) [#/Area] 1+ Abnormal NONE SEEN /HPF [facility] Epithelial cells.squamous Auto (Urine sed) [#/Area] 26-50 (1+) Reference range not established. /HPF [facility] Hyaline casts Auto (Urine sed) [#/Area] OCCASIONAL Abnormal NONE /LPF [facility] Mucus Auto (Urine sed) [#/Area] 1+ Reference range not established. /LPF [facility] RBC Auto (Urine sed) [#/Area] 1-2 NONE, 1-2, 3-5 /HPF [facility] WBC Auto (Urine sed) [#/Area] 11-20 Abnormal 1-5, NONE /HPF [facility] Bacteria Auto (Urine sed) [#/Area] 1+ /HPF Abnormal NONE SEEN [facility] Comment on above: Performed By: #### 2 4321-2 #### ANKIT MURPHY ([id number]) [facility] ([facility]) [address] [place] [address] Epithelial cells.squamous Auto (Urine sed) [#/Area] 26-50 (1+) Normal Reference range not established. [facility] Comment on above: Performed By: #### 2 4321-2 #### ANKIT MURPHY ([id number]) [facility] ([facility]) [address] [place] [address] Hyaline casts Auto (Urine sed) [#/Area] OCCASIONAL Abnormal NONE [facility] Comment on above: Performed By: #### 2 4321-2 #### ANKIT MURPHY ([id number]) [facility] ([facility]) [address] [place] [address] Mucus Auto (Urine sed) [#/Area] 1+ /LPF Normal Reference range not established. [facility] Comment on above: Performed By: #### 2 4321-2 #### ANKIT MURPHY ([id number]) [facility] ([facility]) [address] [place] [address] RBC Auto (Urine sed) [#/Area] 1-2 Normal NONE, 1-2, 3-5 [facility] Comment on above: Performed By: #### 2 4321-2 #### ANKIT MURPHY ([id number]) [facility] ([facility]) [address] [place] [address] 81746 WBC Auto (Urine sed) [#/Area] 11-20 Abnormal 1-5, NONE [facility] Comment on above: Performed By: #### 2 4321-2 #### ANKIT MURPHY ([id number]) [facility] ([facility]) [address] [place] [address] XR CHEST 1 VIEWon 10-27-2023 XR CHEST 1 VIEW Interpreted By: Derrick Ledesma, STUDY: XR CHEST 1 VIEW; 08/13/2023 7:50 am INDICATION: Signs/Symptoms:Hyperten lia. COMPARISON: CT scan abdomen and pelvis dated 11/23/2019. Chest x-rays, most recent from 06/13/2023. ACCESSION NUMBER(S): [id number] ORDERING CLINICIAN: LOPEZ GUTIERREZ TECHNIQUE: Single AP [...] Derrick Bob 08/13/2023 8:15 AM Dictation workstation: [id number] [facility] XR Chest Single viewon 08-13 Stable Linx device a t the GE junction. Otherwise, negative exam. Signed by: Derrick Bob 08/13/2023 8:15 AM Dictation workstation: [id number] Interpreted By: Derrick Ledesma, STUDY: XR CHEST 1 VIEW; 08/13/2023 7:50 am INDICATION: Signs/Symptoms:Hyperten lia. COMPARISON: CT scan abdomen and pelvis dated 11/23/2019. Chest x-rays, most recent from 06/13/2023. ACCESSION NUMBER(S): [id number] ORDERING CLINICIAN: LOPEZ GUTIERREZ TECHNIQUE: Single AP [...] 1 VIEW; 08/13/2023 7:50 am INDICATION: Signs/Symptoms:Hyperten lai. COMPARISON: CT scan abdomen and pelvis dated 11/23/2019. Chest x-rays, most recent from 06/13/2023. ACCESSION NUMBER(S): [id number] ORDERING CLINICIAN: LOPEZ GUTIERREZ TECHNIQUE: Single AP [...] Derrick Bob 08/13/2023 8:15 AM Dictation workstation: [id number] [facility] Work Phone: Radiology Study observation (narrative) [facility] Work Phone: XR Chest Single viewOrdered By: Derrick Bob on 08-13-2023 [facility] Work Phone: Basic metabolic 2000 panelon 08-01-2023 Anion gap [Moles/Vol] 12 mmol/L Normal 10-20 [facility] Comment on above: Performed By: #### 2 4321-2 #### ANKIT MURPHY ([id number]) [facility] ([facility]) [facility] [place] [address] Calcium [Mass/Vol] 9.5 mg/dL Normal 8.6-10.3 [facility] Comment on above: Performed By: #### 2 4321-2 #### ANKIT MURPHY ([id number]) [facility] ([facility]) [facility] [place] [address] Chloride [Moles/Vol] 103 mmol/L Normal 98-107 [facility] Comment on above: Performed By: #### 2 4321-2 #### ANKIT MURPHY ([id number]) [facility] ([facility]) [facility] [place] [address] CO2 [Moles/Vol] 28 mmol/L Normal 21-32 [facility] Comment on above: Performed By: #### 2 4321-2 #### ANKIT MURPHY ([id number]) [facility] ([facility]) [address] [place] [address] 98402 Creatinine [Mass/Vol] 1.40 mg/dL High 0.50-1.05 [facility] Comment on above: Performed By: #### 2 4321-2 #### ANKIT MURPHY ([id number]) [facility] ([facility]) [address] [place] [address] 04766 GFR/1.73 sq M.predicted MDRD (S/P/Bld) [Vol rate/Area] 46 mL/min/1.73m*2 Low >60 [facility] Comment on above: Result Comment: Calc ulations of estimated GFR are performed using the 2020 CKD-EPI Study Refit equation without the race variable for the IDMS-Traceable creatinine methods. https://jasn.asnjournals.org/content//ASN.770641 9643 Performed By: #### 2 4321-2 #### ANKIT MURPHY ([id number]) [facility] ([facility]) [address] [place] [address] 68689 Glucose [Mass/Vol] 91 mg/dL Normal 74-99 [facility] Comment on above: Performed By: #### 2 4321-2 #### ANKIT MURPHY ([id number]) [facility] ([facility]) [address] [place] [address] 91594 Potassium [Moles/Vol] 4.6 mmol/L Normal 3.5-5.3 [facility] Comment on above: Performed By: #### 2 4321-2 #### ANKIT MURPHY ([id number]) [facility] ([facility]) [address] [place] [address] 17679 Sodium [Moles/Vol] 138 mmol/L Normal 136-145 [facility] Comment on above: Performed By: #### 2 4321-2 #### ANKIT MURPHY ([id number]) [facility] ([facility]) [address] [place] [address] 52168 Urea nitrogen [Mass/Vol] 26 mg/dL High 6-23 [facility] Comment on above: Performed By: #### 2 4321-2 #### ANKIT MURPHY ([id number]) [facility] ([facility]) [address] [place] [address] 74960 CBC W Auto Differential pane l (Bld)on 08-01-2023 Basophils (Bld) [#/Vol] 0.01 x10*3/uL Normal 0.00-0.10 [facility] Comment on above: Performed By: #### 5 7021-8 #### ANKIT MURPHY ([id number]) [facility] ([facility]) [address] [place] [address] 78557 Basophils/100 WBC (Bld) 0.2 % Normal 0.0-2.0 [facility] Comment on above: Performed By: #### 5 7021-8 #### ANKIT MURPHY ([id number]) [facility] ([facility]) [address] [place] [address] 21618 Eosinophils (Bld) [#/Vol] 0.08 x10*3/uL Normal 0.00-0.70 [facility] Comment on above: Performed By: #### 5 7021-8 #### ANKIT MURPHY ([id number]) [facility] ([facility]) [address] [place] [address] 66711 Eosinophils/100 WBC (Bld) 1.5 % Normal 0.0-6.0 [facility] Comment on above: Performed By: #### 5 7021-8 #### ANKIT MURPHY ([id number]) [facility] ([facility]) [address] [place] [address] 55951 Erythrocyte distribution width (RBC) [Ratio] 12.6 % Normal 11.5-14.5 [facility] Comment on above: Performed By: #### 5 7021-8 #### ANKIT MURPHY ([id number]) [facility] ([facility]) [address] [place] [address] 53190 Hematocrit (Bld) [Volume fraction] 42.3 % Normal 36.0-46.0 [facility] Comment on above: Performed By: #### 5 7021-8 #### ANKIT MURPHY ([id number]) [facility] ([facility]) [address] [place] [address] 12536 Hemoglobin (Bld) [Mass/Vol] 14.0 g/dL Normal 12.0-16.0 [facility] Comment on above: Performed By: #### 5 7021-8 #### ANKIT MURPHY ([id number]) [facility] ([facility]) [address] [place] [address] 40188 Immature granulocytes (Bld) [#/Vol] 0.02 x10*3/uL Normal 0.00-0.70 [facility] Comment on above: Performed By: #### 5 7021-8 #### ANKIT MURPHY ([id number]) [facility] ([facility]) [address] [place] [address] 38839 Immature granulocytes/100 WBC (Bld) 0.4 % Normal 0.0-0.9 [facility] Comment on above: Result Comment: Suze ture Granulocyte Count (IG) includes promyelocytes, myelocytes and metamyelocytes but does not include bands. Percent differential counts (%) should be interpreted in the context of the absolute cell counts (cells/UL). Performed By: #### 5 7021-8 #### ANKIT MURHPY ([id number]) [facility] ([facility]) [address] [place] [address] 97174 Lymphocytes (Bld) [#/Vol] 1.37 x10*3/uL Normal 1.20-4.80 [facility] Comment on above: Performed By: #### 5 7021-8 #### ANKIT MURPHY ([id number]) [facility] ([facility]) [address] [place] [address] 15129 Lymphocytes/100 WBC (Bld) 25.1 % Normal 13.0-44.0 [facility] Comment on above: Performed By: #### 5 7021-8 #### ANKIT MURPHY ([id number]) [facility] ([facility]) [address] [place] [address] 98415 MCH (RBC) [Entitic mass] 30.4 pg Normal 26.0-34.0 [facility] Comment on above: Performed By: #### 5 7021-8 #### ANKIT MURPHY ([id number]) [facility] ([facility]) [address] [place] [address] 71129 MCHC (RBC) [Mass/Vol] 33.1 g/dL Normal 32.0-36.0 [facility] Comment on above: Performed By: #### 5 7021-8 #### ANKIT MURPHY ([id number]) [facility] ([facility]) [address] [place] [address] 37201 MCV (RBC) [Entitic vol] 92 fL Normal 80-100 [facility] Comment on above: Performed By: #### 5 7021-8 #### ANKIT MURPHY ([id number]) [facility] ([facility]) [address] [place] [address] 35517 Monocytes (Bld) [#/Vol] 0.49 x10*3/uL Normal 0.10-1.00 [facility] Comment on above: Performed By: #### 5 7021-8 #### ANKIT MURPHY ([id number]) [facility] ([facility]) [address] [place] [address] 68101 Monocytes/100 WBC (Bld) 9.0 % Normal 2.0-10.0 [facility] Comment on above: Performed By: #### 5 7021-8 #### ANKIT MURPHY ([id number]) [facility] ([facility]) [address] [place] [address] 52029 Neutrophils (Bld) [#/Vol] 3.48 x10*3/uL Normal 1.20-7.70 [facility] Comment on above: Result Comment: Perc ent differential counts (%) should be interpreted in the context of the absolute cell counts (cells/uL). Performed By: #### 5 7021-8 #### ANKIT MURPHY ([id number]) [facility] ([facility]) [address] [place] [address] 89579 Neutrophils/100 WBC (Bld) 63.8 % Normal 40.0-80.0 [facility] Comment on above: Performed By: #### 5 7021-8 #### ANKIT MURPHY ([id number]) [facility] ([facility]) [address] [place] [address] 95943 Nucleated RBC/100 WBC (Bld) [Ratio] 0.0 /100 WBCs Normal 0.0-0.0 [facility] Comment on above: Performed By: #### 5 7021-8 #### ANKIT MURPHY ([id number]) [facility] ([facility]) [address] [place] [address] 51657 Platelet mean volume (Bld) [Entitic vol] 10.5 fL Normal 7.5-11.5 [facility] Comment on above: Performed By: #### 5 7021-8 #### ANKIT MURPHY ([id number]) [facility] ([facility]) [address] [place] [address] 05206 Platelets (Bld) [#/Vol] 122 x10*3/uL Low 150-450 [facility] Comment on above: Result Comment: Veri fied by repeat analysis Performed By: #### 5 7021-8 #### ANKIT MURPHY ([id number]) [facility] ([facility]) [address] [place] [address] 46330 RBC (Bld) [#/Vol] 4.61 x10*6/uL Normal 4.00-5.20 [facility] Comment on above: Performed By: #### 5 7021-8 #### ANKIT MURPHY ([id number]) [facility] ([facility]) [address] [place] [address] 76767 WBC (Bld) [#/Vol] 5.5 x10*3/uL Normal 4.4-11.3 [facility] Comment on above: Performed By: #### 5 7021-8 #### ANKIT MURPHY ([id number]) [facility] ([facility]) [address] [place] [address] 56164 Urinalysis complete W Reflex Culture panel (U)on 08-01-2023 Appearance (U) Clear Normal Clear [facility] Comment on above: Performed By: #### 5 8077-9 #### ANKIT MURPHY ([id number]) [facility] ([facility]) [address] [place] [address] 27708 Bilirubin (U) [Mass/Vol] Negative Normal NEGATIVE [facility] Comment on above: Performed By: #### 5 8077-9 #### ANKIT MURPHY ([id number]) [facility] ([facility]) [address] [place] [address] 65017 Color (U) Straw Normal Straw, Yellow [facility] Comment on above: Performed By: #### 5 8077-9 #### ANKIT MURPHY ([id number]) [facility] ([facility]) [address] [place] [address] 27561 Glucose Auto test strip (U) [Mass/Vol] Negative Normal NEGATIVE [facility] Comment on above: Performed By: #### 5 8077-9 #### ANKIT MURPHY ([id number]) [facility] ([facility]) [address] [place] [address] 48652 Ketones (U) [Mass/Vol] Negative Normal NEGATIVE [facility] Comment on above: Performed By: #### 5 8077-9 #### ANKIT MURPHY ([id number]) [facility] ([facility]) [address] [place] [address] 83329 Leukocyte esterase Auto test strip Ql (U) Negative Normal NEGATIVE [facility] Comment on above: Performed By: #### 5 8077-9 #### ANKIT MURPHY ([id number]) [facility] ([facility]) [address] [place] [address] 46261 Nitrite Auto test strip Ql (U) Negative Normal NEGATIVE [facility] Comment on above: Performed By: #### 5 8077-9 #### ANKIT MURPHY ([id number]) [facility] ([facility]) [address] [place] [address] 67043 pH (U) 7.0 [pH] Normal 5.0, 5.5, 6.0, 6.5, 7.0, 7.5, 8.0 [facility] Comment on above: Performed By: #### 5 8077-9 #### ANKIT MURPHY ([id number]) [facility] ([facility]) [address] [place] [address] 79459 Protein (U) [Mass/Vol] Negative Normal NEGATIVE [facility] Comment on above: Performed By: #### 5 8077-9 #### ANKIT MURPHY ([id number]) [facility] ([facility]) [address] [place] [address] 84165 RBC (U) [#/Vol] Negative Normal NEGATIVE [facility] Comment on above: Performed By: #### 5 8077-9 #### ANKIT MURPHY ([id number]) [facility] ([facility]) [address] [place] [address] Specific gravity (U) [Rel density] 1.013 Normal 1.005-1.035 [facility] Comment on above: Performed By: #### 5 8077-9 #### ANKIT MURPHY ([id number]) [facility] ([facility]) [address] [place] [address] 65741 Urobilinogen (U) [Mass/Vol] mg/dL Normal <2.0 [facility] Comment on above: Performed By: #### 5 8077-9 #### ANKIT MURPHY ([id number]) [facility] ([facility]) [address] [place] [address] 12357 CBC W Auto Differential pane l (Bld)on 07-29-2023 Basophils (Bld) [#/Vol] 0.02 x10*3/uL Normal 0.00-0.[address] [facility] Comment on above: Performed By: #### 5 7021-8 #### ANKIT MURPHY ([id number]) [facility] ([facility]) [address] [place] [address] 99932 Basophils/100 WBC (Bld) 0.4 % Normal 0.0-2.[address] [facility] Comment on above: Performed By: #### 5 7021-8 #### ANKIT MURPHY ([id number]) [facility] ([facility]) [address] [place] [address] 88199 Eosinophils (Bld) [#/Vol] 0.10 x10*3/uL Normal 0.00-0.[address] [facility] Comment on above: Performed By: #### 7021-8 #### ANKIT MURPHY ([id number]) [facility] ([facility]) [address] [place] [address] 56133 Eosinophils/100 WBC (Bld) 1.8 % Normal 0.0-6.[address] [facility] Comment on above: Performed By: #### 5 7021-8 #### ANKIT MURPHY ([id number]) [facility] ([facility]) [address] [place] [address] 76221 Erythrocyte distribution width (RBC) [Ratio] 12.8 % Normal 11.5-14.[address] [facility] Comment on above: Performed By: #### 5 7021-8 #### ANKIT MURPHY ([id number]) [facility] ([facility]) [address] [place] [address] 18797 Hematocrit (Bld) [Volume fraction] 42.9 % Normal 36.0-46.[address] [facility] Comment on above: Performed By: #### 5 7021-8 #### ANKIT MURPHY ([id number]) [facility] ([facility]) [address] [place] [address] 90965 Hemoglobin (Bld) [Mass/Vol] 14.4 g/dL Normal 12.0-16.[address] [facility] Comment on above: Performed By: #### 5 7021-8 #### ANKIT MURPHY ([id number]) [facility] ([facility]) [address] [place] [address] 59079 Immature granulocytes (Bld) [#/Vol] 0.04 x10*3/uL Normal 0.00-0.[address] [facility] Comment on above: Performed By: #### 5 7021-8 #### ANKIT MURPHY ([id number]) [facility] ([facility]) [address] [place] [address] 66369 Immature granulocytes/100 WBC (Bld) 0.7 % Normal 0.0-0.[address] [facility] Comment on above: Result Comment: Suze ture Granulocyte Count (IG) includes promyelocytes, myelocytes and metamyelocytes but does not include bands. Percent differential counts (%) should be interpreted in the context of the absolute cell counts (cells/UL). Performed By: #### 5 7021-8 #### ANKIT MURPHY ([id number]) [facility] ([facility]) [address] [place] [address] Lymphocytes (Bld) [#/Vol] 1.85 x10*3/uL Normal 1.20-4.[address] [facility] Comment on above: Performed By: #### 5 7021-8 #### ANKIT MURPHY ([id number]) [facility] ([facility]) [address] [place] [address] 63686 Lymphocytes/100 WBC (Bld) 32.6 % Normal 13.0-44.[address] [facility] Comment on above: Performed By: #### 5 7021-8 #### ANKIT MURPHY ([id number]) [facility] ([facility]) [address] [place] [address] 28447 MCH (RBC) [Entitic mass] 31.0 pg Normal 26.0-34.[address] [facility] Comment on above: Performed By: #### 5 7021-8 #### ANKIT MURPHY ([id number]) [facility] ([facility]) [address] [place] [address] 94340 MCHC (RBC) [Mass/Vol] 33.6 g/dL Normal 32.0-36.0 [place] Comment on above: Performed By: #### 5 7021-8 #### ANKIT MURPHY ([id number]) [facility] ([facility]) [address] [place] [address] 86895 MCV (RBC) [Entitic vol] 93 fL Normal 80-[address] [facility] Comment on above: Performed By: #### 5 7021-8 #### ANKIT MURPHY ([id number]) [facility] ([facility]) [address] [place] [address] 66018 Monocytes (Bld) [#/Vol] 0.49 x10*3/uL Normal 0.10-1.[address] [facility] Comment on above: Performed By: #### 5 7021-8 #### ANKIT MURPHY ([id number]) [facility] ([facility]) [address] [place] [address] 60533 Monocytes/100 WBC (Bld) 8.6 % Normal 2.0-10.[address] [facility] Comment on above: Performed By: #### 5 7021-8 #### ANKIT MURPHY ([id number]) [facility] ([facility]) [address] [place] [address] 32539 Neutrophils (Bld) [#/Vol] 3.18 x10*3/uL Normal 1.20-7.[address] [facility] Comment on above: Result Comment: Perc ent differential counts (%) should be interpreted in the context of the absolute cell counts (cells/uL). Performed By: #### 5 7021-8 #### ANKIT MURPHY ([id number]) [facility] ([facility]) [address] [place] [address] 94663 Neutrophils/100 WBC (Bld) 55.9 % Normal 40.0-80.[address] [facility] Comment on above: Performed By: #### 5 7021-8 #### ANKIT MURPHY ([id number]) [facility] ([facility]) [address] [place] [address] 79659 Nucleated RBC/100 WBC (Bld) [Ratio] 0.0 /100 WBCs Normal 0.0-0.[address] [facility] Comment on above: Performed By: #### 5 7021-8 #### ANKIT MURPHY ([id number]) [facility] ([facility]) [address] [place] [address] 43985 Platelet mean volume (Bld) [Entitic vol] 11.3 fL Normal 7.5-11.[address] [facility] Comment on above: Performed By: #### 5 7021-8 #### ANKIT MURPHY ([id number]) [facility] ([facility]) [address] [place] [address] 89754 Platelets (Bld) [#/Vol] 130 x10*3/uL Low 150-[address] [facility] Comment on above: Performed By: #### 5 7021-8 #### ANKIT MURPHY ([id number]) [facility] ([facility]) [address] [place] [address] RBC (Bld) [#/Vol] 4.64 x10*6/uL Normal 4.00-5.20 [facility] Comment on above: Performed By: #### 5 7021-8 #### ANKIT MURPHY ([id number]) [facility] ([facility]) [address] [place] [address] WBC (Bld) [#/Vol] 5.7 x10*3/uL Normal 4.4-11.3 [facility] Comment on above: Performed By: #### 5 7021-8 #### ANKIT MURPHY ([id number]) [facility] ([facility]) [address] [place] [address] Comprehensive metabolic 2000 panelon 07-29-2023 Albumin BCP dye [Mass/Vol] 4.4 g/dL Normal 3.4-5.[address] [facility] Comment on above: Performed By: #### 2 4323-8 #### ANKIT MURPHY ([id number]) [facility] ([facility]) [address] [place], [place] [id number] ALP [Catalytic activity/Vol] 60 U/L Normal 33-[address] [facility] Comment on above: Performed By: #### 2 4323-8 #### ANKIT MURPHY ([id number]) [facility] ([facility]) [address] [place] [address] ALT With P-5'-P [Catalytic activity/Vol] 15 U/L Normal 7-[address] [facility] Comment on above: Result Comment: Marjan ents treated with Sulfasalazine may generate falsely decreased results for ALT. Performed By: #### 2 4323-8 #### ANKIT MURPHY ([id number]) [facility] ([facility]) [facility] [place] [address] Anion gap [Moles/Vol] 10 mmol/L Normal 10-20 [place] Comment on above: Performed By: #### 2 4323-8 #### ANKIT MURPHY ([id number]) [facility] ([facility]) [address] [place] [address] 52227 AST With P-5'-P [Catalytic activity/Vol] 18 U/L Normal 9-[address] [facility] Comment on above: Performed By: #### 2 4323-8 #### ANKIT MURPHY ([id number]) [facility] ([facility]) [address] [place] [address] 02876 Bilirubin [Mass/Vol] 0.3 mg/dL Normal 0.0-1.2 [facility] Comment on above: Performed By: #### 2 432-8 #### ANKIT MURPHY ([id number]) [facility] ([facility]) [address] [place] [address] 97855 Calcium [Mass/Vol] 9.9 mg/dL Normal 8.6-10.3 [facility] Comment on above: Performed By: #### 2 4323-8 #### ANKIT MURPHY ([id number]) [facility] ([facility]) [address] [place] [address] 30538 Chloride [Moles/Vol] 102 mmol/L Normal 98-107 [facility] Comment on above: Performed By: #### 2 4323-8 #### ANKIT MURPHY ([id number]) [facility]) [address] [place] [address] 56761 CO2 [Moles/Vol] 31 mmol/L Normal 21-32 [facility] Comment on above: Performed By: #### 2 4323-8 #### ANKIT MURPHY ([id number]) [facility]) [address] [place] [address] 19373 Creatinine [Mass/Vol] 1.32 mg/dL High 0.50-1.05 [place] Comment on above: Performed By: #### 2 432-8 #### ANKIT MURPHY ([id number]) [facility] ([facility]) [address] [place] [address] 08678 GFR/1.73 sq M.predicted MDRD (S/P/Bld) [Vol rate/Area] 50 mL/min/1.73m*2 Low >[address] [facility] Comment on above: Result Comment: Calc ulations of estimated GFR are performed using the 2020 CKD-EPI Study Refit equation without the race variable for the IDMS-Traceable creatinine methods. https://jasn.asnjournals.org/content/early//ASN.362129 6345 Performed By: #### 2 432-8 #### ANKIT MURPHY ([id number]) [facility] ([facility]) [address] [place] [address] 45275 Glucose [Mass/Vol] 85 mg/dL Normal 74-99 [facility] Comment on above: Performed By: #### 2 432-8 #### ANKIT MURPHY ([id number]) [facility] ([facility]) [address] [place] [address] 38048 Potassium [Moles/Vol] 4.9 mmol/L Normal 3.5-5.3 [place] Comment on above: Performed By: #### 2 432-8 #### ANKIT MURPHY ([id number]) [facility] ([facility]) [address] [place] [address] 55246 Protein [Mass/Vol] 6.8 g/dL Normal 6.4-8.2 [facility] Comment on above: Performed By: #### 2 4323-8 #### ANKIT MURPHY ([id number]) [facility] ([facility]) [address] [place] [address] 12043 Sodium [Moles/Vol] 138 mmol/L Normal 136-145 [facility] Comment on above: Performed By: #### 2 432-8 #### ANKIT MURPHY ([id number]) [facility] ([facility]) [address] [place] [address] Urea nitrogen [Mass/Vol] 22 mg/dL Normal 6-[address] [facility] Comment on above: Performed By: #### 2 4323-8 #### ANKIT MURPHY ([id number]) [facility] ([facility]) [address] [place] [address] Valproateon 07-29-2023 Valproate [Mass/Vol] 48 ug/mL Low 50-100 [facility] Comment on above: Performed By: #### 4 086-5 #### ANKIT MURPHY ([id number]) [facility] ([facility]) [address] [place] [address] CT HEAD WO CONTRASTon 2022 CT HEAD WO CONTRAST Normal [facility] Provider Note - ED v3on 06-19 Provider Note - ED v3 Normal [facility] Risk Screen - Adult Emergenc yon 07-16-2023 Risk Screen - Adult Emergency Normal [facility] Triage - EDon 07-16-2023 Triage - ED Normal [facility] POCT UA Automated manually r esultedon 07-13-2023 Appearance (U) Cloudy Abnormal Clear [facility] Work Phone: Glucose Test strip (U) [Mass/Vol] Negative NEGATIVE mg/dl [facility] Work Phone: Hemoglobin Ql (U) Negative NEGATIVE [facility] Work Phone: Interpretation and review of laboratory results Abnormal [facility] Work Phone: Leukocyte esterase Test strip Ql (U) Negative NEGATIVE [facility] Work Phone: Nitrite Ql (U) Negative NEGATIVE [facility] Work Phone: pH (U) 6.0 [pH] No Reference Range Established [facility] Work Phone: POC Bilirubin, Urine Negative NEGATIVE [facility] Work Phone: POC Color, Urine Yellow Straw, Yellow, Light Yellow [facility] Work Phone: POC Ketones, Urine Negative NEGATIVE mg/dl [facility] Work Phone: POC Protein, Urine Negative NEGATIVE, 30 (1+) mg/dl [facility] Work Phone: POC Specific [place], Urine 1.025 1.005 - 1.035 [facility] Work Phone: POC Urobilinogen, Urine 0.2 0.2, 1.0 EU/DL [facility] Work Phone: [facility] Work Phone: OT Progress Noteon 3 OT Progress Note No report was sent Normal [facility] Therapy Communicationon 05-19 Therapy Communication Message REEMA MARTHENRY canceled today . Signatures Electronically signed by : CRISTIAN Rod/Jerilyn; Jun 15 2023 3:55PM EST (Author) Normal Touchworks APTTon 06-14-2023 aPTT Coag (Bld) [Time] 31 s Normal 27 - [address] [facility] Comment on above: Result Comment: Note new reference range as of 04/06/2023 at 10:00am. Performed By: #### A PTT ####[place] [id number] BNPon 06-14-2023 Natriuretic peptide B (Bld) [Mass/Vol] 75 pg/mL Normal 0 - [address] [facility] Comment on above: Result Comment: . <1 00 pg/mL - Heart failure clacdtlv699-282 pg/mL - Intermediate probability of acute heart. failure exacerbation. Correlate with clinical. context and patient history. >=300 pg/mL - Heart Failure likely. Correlate with clinical. context and patient history.BNP testing is performed using different testingmethodology at [facility] than at [facility]. Direct result comparisons shouldonly be made within the same method. Performed By: #### B NP2 ####[place] [id number] CBC AND DIFFERENTIALon 06-14 % AUTOMATED IMMATURE GRAN 0.9 % Normal 0.0 - 0.[address] [facility] Comment on above: Result Comment: Suze ture Granulocyte Count (IG) includes promyelocytes, myelocytes and metamyelocytes but does not include bands. Percent differential counts (%) should be interpreted in the context of the absolute cell counts (cells/L). Performed By: #### C BCDF ####[address] [address] Basophils (Bld) [#/Vol] 0.01 10*3/uL Normal 0.00 - 0.[address] [facility] Comment on above: Performed By: #### C BCDF ####[address] [address] Basophils/100 WBC (Bld) 0.2 % Normal 0.0 - 2.[address] [facility] Comment on above: Performed By: #### C BCDF ####[address] [address] Eosinophils (Bld) [#/Vol] 0.11 10*3/uL Normal 0.00 - 0.[address] [facility] Comment on above: Performed By: #### C BCDF ####[address] [address] Eosinophils/100 WBC (Bld) 2.1 % Normal 0.0 - 6.[address] [facility] Comment on above: Performed By: #### C BCDF ####[address] [address] Erythrocyte distribution width (RBC) [Ratio] 12.8 % Normal 11.5 - 14.[address] [facility] Comment on above: Performed By: #### C BCDF ####[address] [address] Hematocrit (Bld) [Volume fraction] 40.1 % Normal 36.0 - 46.[address] [facility] Comment on above: Performed By: #### C BCDF ####[address] [address] Hemoglobin (Bld) [Mass/Vol] 13.8 g/dL Normal 12.0 - 16.[address] [facility] Comment on above: Performed By: #### C BCDF ####[address] [address] Lymphocytes (Bld) [#/Vol] 1.37 10*3/uL Normal 1.20 - 4.[address] [facility] Comment on above: Performed By: #### C BCDF ####[address] [address] Lymphocytes/100 WBC (Bld) 26.0 % Normal 13.0 - 44.[address] [facility] Comment on above: Performed By: #### C BCDF ####[address] [address] MCHC (RBC) [Mass/Vol] 34.4 g/dL Normal 32.0 - 36.0 [facility] Comment on above: Performed By: #### C BCDF ####[address] [address] MCV (RBC) [Entitic vol] 89 fL Normal 80 - [address] [facility] Comment on above: Performed By: #### C BCDF ####[address] [address] Monocytes (Bld) [#/Vol] 0.39 10*3/uL Normal 0.10 - 1.[address] [facility] Comment on above: Performed By: #### C BCDF ####[address] [address] Monocytes/100 WBC (Bld) 7.4 % Normal 2.0 - 10.[address] [facility] Comment on above: Performed By: #### C BCDF ####[address] [address] Neutrophils (Bld) [#/Vol] 3.34 10*3/uL Normal 1.20 - 7.[address] [facility] Comment on above: Result Comment: Perc ent differential counts (%) should be interpreted in the context of the absolute cell counts (cells/L). Performed By: #### C BCDF ####[address] [address] Neutrophils/100 WBC (Bld) 63.4 % Normal 40.0 - 80.[address] [facility] Comment on above: Performed By: #### C BCDF ####[place] [id number] Platelets (Bld) [#/Vol] 111 10*3/uL Low 150 - [address] [facility] Comment on above: Performed By: #### C BCDF ####[place] [id number] RBC 4.51 x10E12/L Normal 4.00 - 5.[address] [facility] Comment on above: Performed By: #### C BCDF ####[place] [id number] WBC (Bld) [#/Vol] 5.3 10*3/uL Normal 4.4 - 11.3 [facility] Comment on above: Performed By: #### C BCDF ####[place] [id number] CHEST 1 VIEWon 06-14-2023 CHEST [address] [facility] COMPREHENSIVE PANELon 2022 Albumin [Mass/Vol] 4.0 g/dL Normal 3.4 - 5.0 [facility] Comment on above: Performed By: #### C MP ####[place] [address] ALP [Catalytic activity/Vol] 66 U/L Normal 33 - [address] [facility] Comment on above: Performed By: #### C MP ####[place] [id number] ALT [Catalytic activity/Vol] 8 U/L Normal 7 - [address] [facility] Comment on above: Result Comment: Marjan ents treated with Sulfasalazine may generate falsely decreased results for ALT. Performed By: #### C MP ####[place] [address] Anion gap [Moles/Vol] 11 mmol/L Normal 10 - 20 [facility] Comment on above: Performed By: #### C MP ####[place] [address] AST [Catalytic activity/Vol] 12 U/L Normal 9 - [address] [facility] Comment on above: Performed By: #### C MP ####[address] [address] Bilirubin [Mass/Vol] 0.3 mg/dL Normal 0.0 - 1.2 [facility] Comment on above: Performed By: #### C MP ####[address] [address] Calcium [Mass/Vol] 8.5 mg/dL Low 8.6 - 10.3 [facility] Comment on above: Performed By: #### C MP ####[address] [address] Chloride [Moles/Vol] 104 mmol/L Normal 98 - 107 [facility] Comment on above: Performed By: #### C MP ####[address] [address] Creatinine [Mass/Vol] 1.11 mg/dL High 0.50 - 1.05 [facility] Comment on above: Performed By: #### C MP ####[address] [address] GFR/1.73 sq M.predicted among non-blacks MDRD (S/P/Bld) [Vol rate/Area] 61 mL/min/{1.73_m2} Normal >[address] [facility] Comment on above: Result Comment: CALC ULATIONS OF ESTIMATED GFR ARE PERFORMED USING THE 2020 CKD-EPI STUDY REFIT EQUATION WITHOUT THE RACE VARIABLE FOR THE IDMS-TRACEABLE CREATININE METHODS.https://jasn.asnjournals.org/content/early/ N.8585691850 Performed By: #### C MP ####[address] [address] Glucose [Mass/Vol] 95 mg/dL Normal 74 - 99 [facility] Comment on above: Performed By: #### C MP ####[address] [address] HCO3 (Bld) [Moles/Vol] 26 mmol/L Normal 21 - [address] [facility] Comment on above: Performed By: #### C MP ####[address] [address] Potassium [Moles/Vol] 4.2 mmol/L Normal 3.5 - 5.3 [facility] Comment on above: Performed By: #### C MP ####[address] [address] Protein [Mass/Vol] 6.1 g/dL Low 6.4 - 8.2 [facility] Comment on above: Performed By: #### C MP ####[address] [address] Sodium [Moles/Vol] 137 mmol/L Normal 136 - 145 [facility] Comment on above: Performed By: #### C MP ####[place] [id number] Urea nitrogen [Mass/Vol] 19 mg/dL Normal 6 - [address] [facility] Comment on above: Performed By: #### C MP ####[address] [address] MAGNESIUMon 06-14-2023 Magnesium [Mass/Vol] 1.61 mg/dL Normal 1.60 - 2.40 [facility] Comment on above: Performed By: #### M G ####[address] [address] PT/INRon 06-14-2023 PT Coag (PPP) [Time] 10.3 s Normal 9.8 - 12.8 [facility] Comment on above: Result Comment: Note new reference range as of 04/06/2023 at 10:00am. Performed By: #### P TINR ####[address] [address] PT, INR 0.9 Normal 0.9 - 1.[address] [facility] Comment on above: Performed By: #### P TINR ####[address] [address] Provider Note - ED v3on 05-19 Provider Note - ED v3 Normal [facility] Risk Screen - Adult Emergenc yon 06-14-2023 Risk Screen - Adult Emergency Normal [facility] TROPONIN I, HIGH SENSITIVITY on 06-14-2023 TROPONIN I, HIGH SENSITIVITY Canceled Normal [facility] Comment on above: Order Comment: TEST [...] is performed using a differenttesting methodology at [facility] than at [facility]. Direct result comparisons should onlybe made within the same method. Performed By: #### [facility] ####[place] [address] [place] [address] TROPONIN I, HIGH SENSITIVITY 7 ng/L Normal 0 - [address] [facility] Comment on above: Result Comment: .Les [...] is performed using a differenttesting methodology at [facility] than at [facility]. Direct result comparisons should onlybe made within the same method. Performed By: #### [facility] ####[place] [address] [place] [address] TROPONIN I, HIGH SENSITIVITY 8 ng/L Normal 0 - [address] [facility] Comment on above: Result Comment: .Les [...] is performed using a differenttesting methodology at [facility] than at [facility]. Direct result comparisons should onlybe made within the same method. Performed By: #### [facility] ####[place] [address] [place] [address] Triage - EDon 06-14-2023 Triage - ED Normal [facility] Activated Partial Thrombopla stin Timeon 06-13-2023 aPTT Coag (PPP) [Time] 31 s 27 - 38 [facility] [place] Work Phone: Comment on above: Note new reference r sharda as of 04/06/2023 at 10:00am. Complete Blood Count + Diffe rentialon 06-13-2023 Basophils/100 WBC (Bld) 0.2 % 0.0 - 2.0 [facility] [place] Work Phone: Erythrocyte distribution width (RBC) [Ratio] 12.8 % See Below [facility] Work Phone: Comment on above: Reference Range: 11. 5 - 14.5 Hematocrit (Bld) [Volume fraction] 40.1 % See Below [facility] Work Phone: Comment on above: Reference Range: 36. 0 - 46.0 Hemoglobin (Bld) [Mass/Vol] 13.8 g/dL See Below [facility] [facility] Work Phone: Comment on above: Reference Range: 12. 0 - 16.0 Lymphocytes/100 WBC (Bld) 26.0 % See Below [facility] [facility] Work Phone: Comment on above: Reference Range: 13. 0 - 44.0 MCHC (RBC) [Mass/Vol] 34.4 g/dL See Below [facility] [facility] Work Phone: Comment on above: Reference Range: 32. 0 - 36.0 MCV (RBC) [Entitic vol] 89 fL 80 - 100 [facility] [facility] Work Phone: Monocytes/100 WBC (Bld) 7.4 % 2.0 - 10.0 [facility] [facility] Work Phone: Neutrophils/100 WBC (Bld) 63.4 % See Below [facility] [facility] Work Phone: Comment on above: Reference Range: 40. 0 - 80.0 Platelets (Bld) [#/Vol] 111 10*3/uL below low threshold 150 - 450 [facility] [facility] Work Phone: RBC (Bld) [#/Vol] 4.51 {x10E12/L} See Below [facility] [facility] Work Phone: Comment on above: Reference Range: 4.0 0 - 5.20 WBC (Bld) [#/Vol] 5.3 10*3/uL 4.4 - 11.3 [facility] [facility] Work Phone: Complete Blood Count + Differential 0.01 {x10E9/L} See Below [facility] [place] Work Phone: Comment on above: Reference Range: 0.0 0 - 0.10 Complete Blood Count + Differential 0.11 {x10E9/L} See Below [facility] [facility]: Comment on above: Reference Range: 0.0 0 - 0.70 Complete Blood Count + Differential 0.39 {x10E9/L} See Below [facility] [place] Work Phone: Comment on above: Reference Range: 0.1 0 - 1.00 Complete Blood Count + Differential 1.37 {x10E9/L} See Below [facility] Work Phone: Comment on above: Reference Range: 1.2 0 - 4.80 Complete Blood Count + Differential 3.34 {x10E9/L} See Below [facility] [place] Work Phone: Comment on above: Reference Range: 1.2 0 - 7.70 Percent differential counts (%) should be interpreted in the context of the absolute cell counts (cells/L). Complete Blood Count + Differential 2.1 % 0.0 - 6.0 [facility] Work Phone: Complete Blood Count + Differential 0.9 % 0.0 - 0.9 [facility] Work Phone: Comment on above: Immature Granulocyte Count (IG) includes promyelocytes, myelocytes and metamyelocytes but does not include bands. Percent differential counts (%) should be interpreted in the context of the absolute cell counts (cells/L). Laboratory - Chemistry and C hemistry - challengeon 06-13-2023 Albumin BCP dye [Mass/Vol] 4.0 g/dL 3.4 - 5.0 [facility] Work Phone: ALP [Catalytic activity/Vol] 66 U/L 33 - 110 [facility] [place] Work Phone: ALT With P-5'-P [Catalytic activity/Vol] 8 U/L 7 - 45 [facility] [place] Work Phone: Comment on above: Patients treated wit h Sulfasalazine may generate falsely decreased results for ALT. Anion gap [Moles/Vol] 11 mmol/L 10 - 20 [facility] [place] Work Phone: AST With P-5'-P [Catalytic activity/Vol] 12 U/L 9 - 39 [facility] [place] Work Phone: Bilirubin [Mass/Vol] 0.3 mg/dL 0.0 - 1.2 [facility] [facility] [place] Work Phone: Calcium [Mass/Vol] 8.5 mg/dL below low threshold 8.6 - 10.3 [facility] [place] Work Phone: Chloride [Moles/Vol] 104 mmol/L 98 - 107 [facility] [facility] [place] Work Phone: CO2 [Moles/Vol] 26 mmol/L 21 - 32 [facility] [place] Work Phone: Creatinine [Mass/Vol] 1.11 mg/dL above high threshold See Below [facility] [place] Work Phone: Comment on above: Reference Range: 0.5 0 - 1.05 Glucose [Mass/Vol] 95 mg/dL 74 - 99 [facility] [place] Work Phone: Potassium [Moles/Vol] 4.2 mmol/L 3.5 - 5.3 [facility] [place] Work Phone: Protein [Mass/Vol] 6.1 g/dL below low threshold 6.4 - 8.2 [facility] [place] Work Phone: Sodium [Moles/Vol] 137 mmol/L 136 - 145 [facility] [place] Work Phone: Urea nitrogen [Mass/Vol] 19 mg/dL 6 - 23 [facility] Work Phone: Laboratory - Coagulationon 0 06-13-2023 INR Coag (PPP) [Relative time] 0.9 {INR} 0.9 - 1.1 [facility] [place] Work Phone: PT Coag (PPP) [Time] 10.3 s 9.8 - 12.8 [facility] [place] Work Phone: Comment on above: Note new reference suhsma robin as of 04/06/2023 at 10:00am. Magnesium, Serumon 3 Magnesium [Mass/Vol] 1.61 mg/dL See Below [facility] [place] Work Phone: Comment on above: Reference Range: 1.6 0 - 2.40 No Panel Informationon 06-13 75 pg/mL 0 - 99 [facility] [place] Work Phone: Comment on above: . <100 pg/mL - Heart failure [id number] pg/mL - Intermediate probability of acute heart. failure exacerbation. Correlate with clinical. context and patient history. >=300 pg/mL - Heart Failure likely. Correlate with clinical. context and patient history.BNP testing is performed using different testing methodology at [facility] than at other [facility]. Direct result comparisons should only be made within the same method. 61 {mL/min/1.73m2} >90 [facility] [place] Work Phone: Comment on above: CALCULATIONS OF FRIEDA MATED GFR ARE PERFORMED USING THE 2020 CKD-EPI STUDY REFIT EQUATION WITHOUT THE RACE VARIABLE FOR THE IDMS-TRACEABLE CREATININE METHODS.https://jasn.asnjournals.org/content/early/ N.6563824943 Radiologyon 06-13-2023 XR Chest Single view Normal [facility] [place] Work Phone: TROPONIN I, HIGH SENSITIVITY on 06-13-2023 Tropinin I.cardiac panel High sensitivity method 7 ng/L 0 - 13 [facility] [place] Work Phone: Comment on above: .Less than [...] performed using a different testing methodology at [facility] than at other [facility]. Direct result comparisons should only be made within the same method. Tropinin I.cardiac panel High sensitivity method 8 ng/L 0 - [address] [facility] [address] [facility] [place] Work Phone: Comment on above: .Less than [...] performed using a different testing methodology at [facility] than at other [facility]. Direct result comparisons should only [...] code time is 43 minutes. Therapeutic exercise (22679): timed minutes 15 . 4503-0687 UE ergometer on level 1 x3 minutes Passing 2.2lb ball between UE x15. Therapeutic Activity (42243):. 0911-3694 Stacking 1 inch blocks into towers of x2, x5 towers DEBORAH with 5lb resistance 9191-4540 [facility] beading large beads onto string x12 DEBORAH. 'Scores and Scales' Signatures Electronically signed by : CRISTIAN Rod/Jerilyn; Jun 08 2023 4:39PM EST (Author) Normal Touchworks Therapy Communicationon 05-18 Therapy Communication Message REEMA SHAH canceled today 06/04/23. No reason given. Signatures Electronically signed by : NUVIA Hernandez/Jerilyn; Jun 04 2023 9:28AM EST (Author) Normal Touchworks CBC AND DIFFERENTIALon 06-02 % AUTOMATED IMMATURE GRAN 0.9 % Normal 0.0 - 0.[address] [facility] Comment on above: Result Comment: Suze ture Granulocyte Count (IG) includes promyelocytes, myelocytes and metamyelocytes but does not include bands. Percent differential counts (%) should be interpreted in the context of the absolute cell counts (cells/L). Performed By: #### C BCDF ####[address] [address] Basophils (Bld) [#/Vol] 0.02 10*3/uL Normal 0.00 - 0.[address] [facility] Comment on above: Performed By: #### C BCDF ####[address] [address] Basophils/100 WBC (Bld) 0.4 % Normal 0.0 - 2.[address] [facility] Comment on above: Performed By: #### C BCDF ####[address] [address] Eosinophils (Bld) [#/Vol] 0.11 10*3/uL Normal 0.00 - 0.[address] [facility] Comment on above: Performed By: #### C BCDF ####[address] [address] Eosinophils/100 WBC (Bld) 2.0 % Normal 0.0 - 6.[address] [facility] Comment on above: Performed By: #### C BCDF ####[address] [address] Erythrocyte distribution width (RBC) [Ratio] 12.5 % Normal 11.5 - 14.[address] [facility] Comment on above: Performed By: #### C BCDF ####[address] [address] Hematocrit (Bld) [Volume fraction] 43.7 % Normal 36.0 - 46.[address] [facility] Comment on above: Performed By: #### C BCDF ####[address] [address] Hemoglobin (Bld) [Mass/Vol] 14.6 g/dL Normal 12.0 - 16.[address] [facility] Comment on above: Performed By: #### C BCDF ####[address] [address] Lymphocytes (Bld) [#/Vol] 1.74 10*3/uL Normal 1.20 - 4.[address] [facility] Comment on above: Performed By: #### C BCDF ####[address] [address] Lymphocytes/100 WBC (Bld) 31.8 % Normal 13.0 - 44.[address] [facility] Comment on above: Performed By: #### C BCDF ####[address] [address] MCHC (RBC) [Mass/Vol] 33.4 g/dL Normal 32.0 - 36.0 [facility] Comment on above: Performed By: #### C BCDF ####[address] [address] MCV (RBC) [Entitic vol] 91 fL Normal 80 - [address] [facility] Comment on above: Performed By: #### C BCDF ####[address] [address] Monocytes (Bld) [#/Vol] 0.39 10*3/uL Normal 0.10 - 1.[address] [facility] Comment on above: Performed By: #### C BCDF ####[address] [address] Monocytes/100 WBC (Bld) 7.1 % Normal 2.0 - 10.[address] [facility] Comment on above: Performed By: #### C BCDF ####[address] [place] [address] Neutrophils (Bld) [#/Vol] 3.16 10*3/uL Normal 1.20 - 7.[address] [facility] Comment on above: Result Comment: Perc ent differential counts (%) should be interpreted in the context of the absolute cell counts (cells/L). Performed By: #### C BCDF ####[address] [address] Neutrophils/100 WBC (Bld) 57.8 % Normal 40.0 - 80.[address] [facility] Comment on above: Performed By: #### C BCDF ####[address] [address] Platelets (Bld) [#/Vol] 124 10*3/uL Low 150 - [address] [facility] Comment on above: Performed By: #### C BCDF ####[address] [address] RBC 4.81 x10E12/L Normal 4.00 - 5.[address] [facility] Comment on above: Performed By: #### C BCDF ####[address] [address] WBC (Bld) [#/Vol] 5.5 10*3/uL Normal 4.4 - 11.3 [facility] Comment on above: Performed By: #### C BCDF ####[address] [address] COMPREHENSIVE PANELon 2022 Albumin [Mass/Vol] 4.3 g/dL Normal 3.4 - 5.0 [facility] Comment on above: Performed By: #### C MP ####[address] [address] ALP [Catalytic activity/Vol] 69 U/L Normal 33 - [address] [facility] Comment on above: Performed By: #### C MP ####[address] [address] ALT [Catalytic activity/Vol] 11 U/L Normal 7 - [address] [facility] Comment on above: Result Comment: Marjan ents treated with Sulfasalazine may generate falsely decreased results for ALT. Performed By: #### C MP ####[address] [address] Anion gap [Moles/Vol] 11 mmol/L Normal 10 - 20 [facility] Comment on above: Performed By: #### C MP ####[address] [address] AST [Catalytic activity/Vol] 15 U/L Normal 9 - [address] [facility] Comment on above: Performed By: #### C MP ####[address] [address] Bilirubin [Mass/Vol] 0.3 mg/dL Normal 0.0 - 1.2 [facility] Comment on above: Performed By: #### C MP ####[address] [address] Calcium [Mass/Vol] 9.2 mg/dL Normal 8.6 - 10.3 [facility] Comment on above: Performed By: #### C MP ####[address] [address] Chloride [Moles/Vol] 103 mmol/L Normal 98 - 107 [facility] Comment on above: Performed By: #### C MP ####[address] [address] Creatinine [Mass/Vol] 1.22 mg/dL High 0.50 - 1.05 [facility] Comment on above: Performed By: #### C MP ####[address] [address] GFR/1.73 sq M.predicted among non-blacks MDRD (S/P/Bld) [Vol rate/Area] 54 mL/min/{1.73_m2} Abnormal >[address] [facility] Comment on above: Result Comment: CALC ULATIONS OF ESTIMATED GFR ARE PERFORMED USING THE 2020 CKD-EPI STUDY REFIT EQUATION WITHOUT THE RACE VARIABLE FOR THE IDMS-TRACEABLE CREATININE METHODS.https://jasn.asnjournals.org/content/early/ N.5865291723 Performed By: #### C MP ####[address] [address] Glucose [Mass/Vol] 96 mg/dL Normal 74 - 99 [facility] Comment on above: Performed By: #### C MP ####[address] [address] HCO3 (Bld) [Moles/Vol] 29 mmol/L Normal 21 - [address] [facility] Comment on above: Performed By: #### C MP ####[address] [address] Potassium [Moles/Vol] 4.9 mmol/L Normal 3.5 - 5.3 [facility] Comment on above: Performed By: #### C MP ####[address] [address] Protein [Mass/Vol] 6.1 g/dL Low 6.4 - 8.2 [facility] Comment on above: Performed By: #### C MP ####[address] [address] Sodium [Moles/Vol] 138 mmol/L Normal 136 - 145 [facility] Comment on above: Performed By: #### C MP ####[place] [id number] Urea nitrogen [Mass/Vol] 20 mg/dL Normal 6 - [address] [facility] Comment on above: Performed By: #### C MP ####[address] [address] HEMOGLOBIN A1Con 06-02-2023 Glucose [Mass/Vol] 100 mg/dL Normal [facility] Comment on above: Performed By: #### H BA1E ####[address] [address] HbA1c (Bld) [Mass fraction] 5.1 % Normal [facility] Comment on above: Result Comment: Diag nosis of Diabetes-Adults Non-Diabetic: < or = 5.6% Increased risk for developing diabetes: 5.7-6.4% Diagnostic of diabetes: > or = 6.5%. Monitoring of Diabetes Age (y) Therapeutic Goal (%) Adults: >18 <7.0 Pediatrics: 13-18 <7.5 7-12 <8.0 0- 6 7.5-8.5 [place] [employer]. Diabetes Care 33(S1), Oct 2009. Performed By: #### H BA1E ####[address] [address] LIPID PANEL (CORONARY RISK 2 )on 06-02-2023 Cholesterol [Mass/Vol] 201 mg/dL High 0 - [address] [facility] Comment on above: Result Comment: . [...] Metamizole dosing. Performed By: #### L IPID ####[address] [address] Cholesterol in HDL [Mass/Vol] 42.0 mg/dL Normal [facility] Comment on above: Result Comment: . AG E VERY LOW LOW NORMAL HIGH 0-19 Y < 35 < 40 40-45 ---- 20-24 Y ---- < 40 >45 ---- >24 Y ---- < 40 40-60 >60. Performed By: #### L IPID ####[address] [address] Cholesterol in LDL [Mass/Vol] 85 mg/dL Normal 0 - [address] [facility] Comment on above: Result Comment: . FILOMENA LEMA AGE DESIRABLE OPTIMAL HIGH HIGH VERY HIGH 0-19 Y 0 - 109 --- 110-129 >/= 130 ---- 20-24 Y 0 - 119 --- 120-159 >/= 160 ---- >24 Y 0 - 99 100-129 130-159 160-189 >/=190. Performed By: #### L IPID ####[address] [place] [address] Cholesterol in VLDL [Mass/Vol] 74 mg/dL High 0 - [address] [facility] Comment on above: Performed By: #### L IPID ####[address] [place] [address] Cholesterol.total/Cho lesterol in HDL [Mass ratio] 4.8 {ratio} Normal [facility] Comment on above: Result Comment: REF VALUESDESIRABLE < 3.4HIGH RISK > 5.0 Performed By: #### L IPID ####[address] [address] NON-HDL CHOLESTEROL 159 mg/dL Normal [facility] Comment on above: Result Comment: AGE DESIRABLE BORDERLINE HIGH HIGH VERY HIGH 0-19 Y 0 - 119 120 - 144 >/= 145 >/= 160 20-24 Y 0 - 149 150 - 189 >/= 190 ---- >24 Y 30 MG/DL ABOVE LDL CHOLESTEROL GOAL. Performed By: #### L IPID ####[address] [address] Triglyceride [Mass/Vol] 370 mg/dL High 0 - [address] [facility] Comment on above: Result Comment: . [...] Metamizole dosing. Performed By: #### L IPID ####[address] [address] MAGNESIUMon 06-02-2023 Magnesium [Mass/Vol] 1.97 mg/dL Normal 1.60 - 2.40 [facility] Comment on above: Performed By: #### M G ####[place] [address] Lab Specimen Source Normal [facility] Comment on above: Performed By: #### M G ####[place] [address] Performed By: #### T HYDS ####[place] [address] Performed By: #### U VY ####[place] [address] Performed By: #### C MP ####[place] [address] Performed By: #### L IPID ####[place] [address] Performed By: #### C BCDF ####[place] [address] TSH WITH REFLEX TO FREE T4 I F ABNORMALon 06-02-2023 TSH Qn 3.40 m[IU]/L Normal 0.44 - 3.[address] [facility] Comment on above: Result Comment: TSH testing is performed using different testing methodology at [facility] than at other [facility]. Direct result comparisons should only be made within the same method. Performed By: #### T HYDS ####[place] [address] URIC ACIDon 06-02-2023 Urate [Mass/Vol] 3.9 mg/dL Normal 2.3 - 6.7 [facility] Comment on above: Result Comment: Nathalie puncture immediately after or during the administration of Metamizole may lead to falsely low results. Testing should be performed immediately prior to Metamizole dosing. Performed By: #### U VY ####[place] [address] PT Progress Noteon 3 PT Progress Note [...] you for this referral and please call [phone] with any questions or concerns. Adult Risk [...] MMT h (more content not included)... Normal [facility] Therapy Re-eval Noteon 05-28 Therapy Re-eval Note [...] you for this referral and please call [phone] with any questions or concerns. Adult Risk [...] ext: 4+/5>5/5>5/5>5/ (more content not included)... Normal [facility] PT Progress Noteon 3 PT Progress Note No report was sent Normal [facility] Therapy Communicationon Therapy Communication Message REEMA SHAH canceled today illness. Signatures Electronically signed by : Pippa Freeman PTA; May 26 2023 8:37AM EST (Author) Normal [facility] PT Progress Noteon 3 PT Progress [...] code time is 40 minutes. Therapeutic Activity (00099):. HEP and POC review Education on RW height and safety with transfers Ambulation throughout clinic with CGA and w/c follow. Aquatic Therapy (14203): timed minutes 40, units 3 . Patient [...] Signatures Electronically signed by : Pippa Freeman ITEM PROCESSOR; May 21 2023 11:28AM EST (Author) Electronically signed by : Trice Tejada, PT; May 31 2023 12:59PM EST Normal [facility] PT Progress Noteon 3 PT Progress Note [...] to ambulate across pool without noodle or CHOKER HOOKER. At end of treatment , perform WATSU [...] code time is 40 minutes. Therapeutic Activity (50568):. HEP and POC review Education on RW height and safety with transfers Ambulation throughout clinic with CGA and w/c follow. Aquatic Therapy (48394): timed minutes 40, units 3 . Patient [...] Signatures Electronically signed by : Pippa Freeman ITEM PROCESSOR; May 19 2023 12:15PM EST (Author) Electronically signed by : Trice Tejada, PT; May 31 2023 12:59PM EST Normal [facility] PT Progress Noteon 3 [...] keeps intact with ther-ex. Patient needing one CHOKER HOOKER to ambulate across pool. Patient needing UE [...] code time is 41 minutes. Therapeutic Activity (44202):. HEP and POC review Education on RW height and safety with transfers Ambulation throughout clinic with CGA and w/c follow. Aquatic Therapy (81808): timed minutes 41, units 3 . Patient [...] Signatures Electronically signed by : Pippa Freeman ITEM PROCESSOR; May 14 2023 9:13AM EST (Author) Electronically signed by : Trice Tejada, PT; May 17 2023 10:13PM EST Normal [facility] Therapy Communicationon 07-2 Therapy Communication Message REEMA SHAH canceled today . Patient canceled secondary to illness. JW. Signatures Electronically signed by : Salma Gamboa ITEM PROCESSOR; May 11 2023 2:31PM EST (Author) Normal [facility] PT Progress Noteon PT Progress Note Therapy Diagnosis Assessed Fall, [...] Added step ups to program with tolerance. Franklin torres needing one UE support with LE ther-ex [...] evaluation Insurance: Medicaid (med necessity) Evaluating therapist: Trcie Tejada, PT, DPT PT dx: M25.569, R26.89 [...] code time is 40 minutes. Therapeutic Activity (61367):. HEP and POC review Education on RW height and safety with transfers Ambulation throughout clinic with CGA and w/c follow. Aquatic Therapy (46234): timed minutes 40, units 3 . Patient [...] report was sent Normal [facility] Therapy Communicationon 04-17 Therapy Communication Message REEMA SHAH canceled today schedule conflict. Signatures Electronically signed by : Pippa Freeman PTA; May 05 2023 11:32AM EST (Author) Normal [facility] LMPon 04-30-2023 Last menstrual period start date IUD [facility] and [address] Work Phone: 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 - Office Visiton 04-17 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 - Office Visit Provider Kelsey white Patient [...] ambulating up/down steps with one HR and CHOKER HOOKER to enter/exit pool. Patient ambulating across pool with one CHOKER HOOKER. Patient has good form/understanding with ther-ex. Patient [...] you for this referral and please call [phone] with any questions or concerns. -Trice Tejada [...] reports no (more content not included)... Normal [facility] Therapy Re-eval Noteon 04-28 Therapy Re-eval Note [...] ambulating up/down steps with one HR and CHOKER HOOKER to enter/exit pool. Patient ambulating across pool with one CHOKER HOOKER. Patient has good form/understanding with ther-ex. Patient [...] you for this referral and please call [phone] with any questions or concerns. -Trice Tejada [...] re (more content not included)... Normal [facility] OT Initial Evalutationon OT Initial Evalutation [...] Denotes Pain with Movement) Hand Dominance: Right [employer] Strategist Strength: level III 35 lbs on the [...] demonstration and printed materials provided. Education of T marifer HEP. Treat (more content not included)... Normal [facility] PT Progress Noteon 3 PT Progress Note [...] ambulate up/down steps with one HR and CHOKER HOOKER. Patient has good form/understanding with ther-ex. Patient able to ambulate across pool with one CHOKER HOOKER. Patient tolerates watsu at end of therapy [...] code time is 40 minutes. Therapeutic Activity (62775):. HEP and POC review Education on RW height and safety with transfers Ambulation throughout clinic with CGA and w/c follow. Aquatic Therapy (44471): timed minutes 40, units 3 . Patient [...] Signatures Electronically signed by : Pippa Freeman ITEM PROCESSOR; Apr 26 2023 1:05PM EST (Author) Electronically signed by : Trice Tejada, PT; Apr 26 2023 4:32PM EST (Author) Normal [facility] PT Progress Noteon 3 PT Progress Note [...] keeps intact with ther-ex. Patient ambulating with CHOKER HOOKER from W/C to pool steps. Patient enter/exits pool uses steps with one HR, SBA. Patient ambulates across pool with CHOKER HOOKER. Patient needing one UE support with LE [...] code time is 41 minutes. Therapeutic Activity (66992):. HEP and POC review Education on RW height and safety with transfers Ambulation throughout clinic with CGA and w/c follow. Aquatic Therapy (34253): timed minutes 41, units 3 . Patient [...] [facility]works No Panel Informationon 04-15 [facility] Work Phone: Please click on the link to view the study images Normal [facility] Work Phone: US PELVISon 04-15-2023 US PELVIS Normal [facility] US PELVIS TRANSABDOMINAL WIT H TRANSVAGINALon 04-15-2023 US PELVIS TRANSABDOMINAL WITH TRANSVAGINAL Normal [facility] PT Progress Noteon PT Progress Note No report was sent Normal [facility] Therapy Communicationon 03-19 Therapy Communication Message REEMA SHAH canceled today illness. Signatures Electronically signed by : Pippa Freeman PTA; Apr 14 2023 10:04AM EST (Author) Normal [facility] PT Progress [...] treatment without increased pain. Patient ambulates with CHOKER HOOKER into pool, up/down steps with hand held [...] code time is 41 minutes. Therapeutic Activity (82521):. HEP and POC review Education on RW height and safety with transfers Ambulation throughout clinic with CGA and w/c follow. Aquatic Therapy (57228): timed minutes 41, units 3 . Patient [...] Signatures Electronically signed by : Pippa Freeman, ITEM PROCESSOR; Apr 09 2023 10:47AM EST (Author) Electronically signed by : Trice Tejada, PT; Apr 16 2023 1:21PM EST Normal [facility] PT Progress Noteon 3 [...] Patient enter/exited pool using pool steps with CHOKER HOOKER. Good tech/safety. Patient needing CHOKER HOOKER to ambulate across pool. Patient using no [...] code time is 40 minutes. Therapeutic Activity (06268):. HEP and POC review Education on RW height and safety with transfers Ambulation throughout clinic with CGA and w/c follow. Aquatic Therapy (34607): timed minutes 40, units 3 . Patient [...] Signatures Electronically signed by : Pippa Freeman ITEM PROCESSOR; Apr 07 2023 10:47AM EST (Author) Electronically signed by : Trice Tejada PT; Apr 16 2023 1:20PM EST Normal [facility] Cult, Urineon 04-06-2023 Bacteria identified Cx Nom (U) [employer] and [address] Work Phone: URINE CULTURE,BACTERIALon URINE CULTURE,BACTERIAL [facility] PATIENT: REEMA SHAH [place] [facility] [id number] : 71 AGE: SEX: F ORDERED BY: MATTHEW PÉREZ SOURCE: URINE COLLECTED: 04/06/23 07:00 ANTIBIOTICS AT KAREN.: RECEIVED : 04/06/23 12:08 SITE: Clean Catch/Voided R E S U L T S URINE CULTURE,BACTERIAL FINAL 04/07/23 08:07 NO SIGNIFICANT GROWTH. Normal [facility] Comment on above: Performed By: #### P TH #### [facility] [address] [place] [address] Cult, Genitalon 04-05-2023 Bacteria identified Aer cx Nom (Genital specimen) [facility] and [address] Work Phone: GENITAL CULTURE, BACT.on GENITAL CULTURE, BACT. PATIENT: REEMA SHAH [place] [facility] [place] [id number] : 71 AGE: SEX: F ORDERED BY: MATTHEW PÉREZ SOURCE: GENITAL COLLECTED: 04/05/23 14:09 ANTIBIOTICS AT KAREN.: RECEIVED : 04/06/23 12:57 SITE: Vaginal R E S U L T S GENITAL CULTURE, BACT. FINAL 04/09/23 14:45 NO PATHOGENS Culture examined for Group A Streptococcus, Group B Streptococcus, Neisseria gonorrhoeae and Yeast ONLY. Normal [facility] Comment on above: Performed By: #### G ENLO #### [facility] [address] [place] [address] LMPon 04-05-2023 Last menstrual period start date IUD [facility] and [address] Work Phone: 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 - Office Visiton 03-18 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 - Office Visit Diagnoses/Problems Assessed Pelvic pain [...] (V12.59) (Z8 (more content not included)... Normal [facility] PT Progress Noteon 3 PT Progress Note [...] code time is 40 minutes. Therapeutic Activity (35028):. Below not performed HEP and POC review Education on RW height and safety with transfers Ambulation throughout clinic with CGA and w/c follow. Aquatic Therapy (11894): timed minutes 40, units 3 . Patient [...] Signatures Electronically signed by : Pippa Freeman ITEM PROCESSOR; Apr 02 2023 10:48AM EST (Author) Electronically signed by : Trice Tejada, PT; Apr 16 2023 1:20PM EST (Author) Normal [facility] CBC AND DIFFERENTIALon 04-01 % AUTOMATED IMMATURE GRAN 0.4 % Normal 0.0 - 0.[address] [facility] Comment on above: Result Comment: Suze ture Granulocyte Count (IG) includes promyelocytes, myelocytes and metamyelocytes but does not include bands. Percent differential counts (%) should be interpreted in the context of the absolute cell counts (cells/L). Performed By: #### C BCDF ####[address] [place] [address] Basophils (Bld) [#/Vol] 0.02 10*3/uL Normal 0.00 - 0.[address] [facility] Comment on above: Performed By: #### C BCDF ####[address] [address] Basophils/100 WBC (Bld) 0.2 % Normal 0.0 - 2.[address] [facility] Comment on above: Performed By: #### C BCDF ####[address] [address] Eosinophils (Bld) [#/Vol] 0.02 10*3/uL Normal 0.00 - 0.[address] [facility] Comment on above: Performed By: #### C BCDF ####[address] [address] Eosinophils/100 WBC (Bld) 0.2 % Normal 0.0 - 6.[address] [facility] Comment on above: Performed By: #### C BCDF ####[address] [address] Erythrocyte distribution width (RBC) [Ratio] 12.8 % Normal 11.5 - 14.[address] [facility] Comment on above: Performed By: #### C BCDF ####[address] [address] Hematocrit (Bld) [Volume fraction] 44.6 % Normal 36.0 - 46.[address] [facility] Comment on above: Performed By: #### C BCDF ####[address] [address] Hemoglobin (Bld) [Mass/Vol] 15.1 g/dL Normal 12.0 - 16.[address] [facility] Comment on above: Performed By: #### C BCDF ####[address] [address] Lymphocytes (Bld) [#/Vol] 1.90 10*3/uL Normal 1.20 - 4.[address] [facility] Comment on above: Performed By: #### C BCDF ####[address] [address] Lymphocytes/100 WBC (Bld) 16.7 % Normal 13.0 - 44.[address] [facility] Comment on above: Performed By: #### C BCDF ####[address] [address] MCHC (RBC) [Mass/Vol] 33.9 g/dL Normal 32.0 - 36.0 [facility] Comment on above: Performed By: #### C BCDF ####[address] [address] MCV (RBC) [Entitic vol] 91 fL Normal 80 - [address] [facility] Comment on above: Performed By: #### C BCDF ####[address] [address] Monocytes (Bld) [#/Vol] 0.94 10*3/uL Normal 0.10 - 1.[address] [facility] Comment on above: Performed By: #### C BCDF ####[address] [address] Monocytes/100 WBC (Bld) 8.3 % Normal 2.0 - 10.[address] [facility] Comment on above: Performed By: #### C BCDF ####[address] [address] Neutrophils (Bld) [#/Vol] 8.44 10*3/uL High 1.20 - 7.[address] [facility] Comment on above: Result Comment: Perc ent differential counts (%) should be interpreted in the context of the absolute cell counts (cells/L). Performed By: #### C BCDF ####[address] [address] Neutrophils/100 WBC (Bld) 74.2 % Normal 40.0 - 80.[address] [facility] Comment on above: Performed By: #### C BCDF ####[address] [address] Platelets (Bld) [#/Vol] 151 10*3/uL Normal 150 - [address] [facility] Comment on above: Performed By: #### C BCDF ####[address] [address] RBC 4.93 x10E12/L Normal 4.00 - 5.[address] [facility] Comment on above: Performed By: #### C BCDF ####[address] [address] WBC (Bld) [#/Vol] 11.4 10*3/uL High 4.4 - 11.3 [facility] Comment on above: Performed By: #### C BCDF ####[id number] COMPREHENSIVE PANELon 2022 Albumin [Mass/Vol] 4.7 g/dL Normal 3.4 - 5.0 [facility] Comment on above: Performed By: #### C MP ####[address] [address] ALP [Catalytic activity/Vol] 73 U/L Normal 33 - [address] [facility] Comment on above: Performed By: #### C MP ####[address] [address] ALT [Catalytic activity/Vol] 18 U/L Normal 7 - [address] [facility] Comment on above: Result Comment: Marjan ents treated with Sulfasalazine may generate falsely decreased results for ALT. Performed By: #### C MP ####[address] [address] Anion gap [Moles/Vol] 19 mmol/L Normal 10 - 20 [facility] Comment on above: Performed By: #### C MP ####[address] [address] AST [Catalytic activity/Vol] 20 U/L Normal 9 - [address] [facility] Comment on above: Performed By: #### C MP ####[address] [address] Bilirubin [Mass/Vol] 0.5 mg/dL Normal 0.0 - 1.2 [facility] Comment on above: Performed By: #### C MP ####[address] [address] Calcium [Mass/Vol] 9.8 mg/dL Normal 8.6 - 10.3 [facility] Comment on above: Performed By: #### C MP ####[address] [address] Chloride [Moles/Vol] 99 mmol/L Normal 98 - 107 [facility] Comment on above: Performed By: #### C MP ####[address] [address] Creatinine [Mass/Vol] 1.57 mg/dL High 0.50 - 1.05 [facility] Comment on above: Performed By: #### C MP ####[address] [address] GFR/1.73 sq M.predicted among non-blacks MDRD (S/P/Bld) [Vol rate/Area] 40 mL/min/{1.73_m2} Abnormal >[address] [facility] Comment on above: Result Comment: CALC ULATIONS OF ESTIMATED GFR ARE PERFORMED USING THE 2020 CKD-EPI STUDY REFIT EQUATION WITHOUT THE RACE VARIABLE FOR THE IDMS-TRACEABLE CREATININE METHODS.https://jasn.asnjournals.org/content/early/ N.4882447066 Performed By: #### C MP ####[address] [address] Glucose [Mass/Vol] 104 mg/dL High 74 - 99 [facility] Comment on above: Performed By: #### C MP ####[address] [address] HCO3 (Bld) [Moles/Vol] 22 mmol/L Normal 21 - [address] [facility] Comment on above: Performed By: #### C MP ####[address] [address] Potassium [Moles/Vol] 4.4 mmol/L Normal 3.5 - 5.3 [facility] Comment on above: Performed By: #### C MP ####[address] [address] Protein [Mass/Vol] 7.2 g/dL Normal 6.4 - 8.2 [facility] Comment on above: Performed By: #### C MP ####[address] [address] Sodium [Moles/Vol] 136 mmol/L Normal 136 - 145 [facility] Comment on above: Performed By: #### C MP ####[address] [place] [address] Urea nitrogen [Mass/Vol] 23 mg/dL Normal 6 - [address] [facility] Comment on above: Performed By: #### C MP ####[address] [address] Complete Blood Count + Diffe lupesarahon 04-01-2023 Basophils/100 WBC (Bld) 0.2 % 0.0 - 2.0 [facility] [place] Work Phone: Erythrocyte distribution width (RBC) [Ratio] 12.8 % See Below [facility] [place] Work Phone: Comment on above: Reference Range: 11. 5 - 14.5 Hematocrit (Bld) [Volume fraction] 44.6 % See Below [facility] [place] Work Phone: Comment on above: Reference Range: 36. 0 - 46.0 Hemoglobin (Bld) [Mass/Vol] 15.1 g/dL See Below [facility] [place] Work Phone: Comment on above: Reference Range: 12. 0 - 16.0 Lymphocytes/100 WBC (Bld) 16.7 % See Below [facility] [place] Work Phone: Comment on above: Reference Range: 13. 0 - 44.0 MCHC (RBC) [Mass/Vol] 33.9 g/dL See Below [facility] [place] Work Phone: Comment on above: Reference Range: 32. 0 - 36.0 MCV (RBC) [Entitic vol] 91 fL 80 - 100 [facility] [place] Work Phone: Monocytes/100 WBC (Bld) 8.3 % 2.0 - 10.0 [facility] [place] Work Phone: Neutrophils/100 WBC (Bld) 74.2 % See Below [facility] [place] Work Phone: Comment on above: Reference Range: 40. 0 - 80.0 Platelets (Bld) [#/Vol] 151 10*3/uL 150 - 450 [facility] [place] Work Phone: RBC (Bld) [#/Vol] 4.93 {x10E12/L} See Below [facility] bean [place] Work Phone: Comment on above: Reference Range: 4.0 0 - 5.20 WBC (Bld) [#/Vol] 11.4 10*3/uL above high threshold 4.4 - 11.3 [facility] [place] Work Phone: Complete Blood Count + Differential 0.02 {x10E9/L} See Below [facility] [place] Work Phone: Comment on above: Reference Range: 0.0 0 - 0.10 Reference Range: 0.0 0 - 0.70 Complete Blood Count + Differential 0.94 {x10E9/L} See Below [facility] [place] Work Phone: Comment on above: Reference Range: 0.1 0 - 1.00 Complete Blood Count + Differential 1.90 {x10E9/L} See Below [facility] [place] Work Phone: Comment on above: Reference Range: 1.2 0 - 4.80 Complete Blood Count + Differential 8.44 {x10E9/L} above high threshold See Below [facility] [place] Work Phone: Comment on above: Reference Range: 1.2 0 - 7.70 Percent differential counts (%) should be interpreted in the context of the absolute cell counts (cells/L). Complete Blood Count + Differential 0.2 % 0.0 - 6.0 [facility] [place] Work Phone: Complete Blood Count + Differential 0.4 % 0.0 - 0.9 [facility] Work Phone: Comment on above: Immature Granulocyte Count (IG) includes promyelocytes, myelocytes and metamyelocytes but does not include bands. Percent differential counts (%) should be interpreted in the context of the absolute cell counts (cells/L). LACTATEon 04-01-2023 Lactate [Moles/Vol] 0.9 mmol/L Normal 0.4 - 2.0 [facility] Comment on above: Result Comment: Nathalie puncture immediately after or during the administration of Metamizole may lead to falsely low results. Testing should be performed immediately prior to Metamizole dosing. Performed By: #### L ACT ####[place] [address] Lactate [Moles/Vol] 2.7 mmol/L High 0.4 - 2.0 [facility] Comment on above: Result Comment: Nathalie puncture immediately after or during the administration of Metamizole may lead to falsely low results. Testing should be performed immediately prior to Metamizole dosing. Performed By: #### L ACT ####[address] [place] [id number] LDHon 04-01-2023 L[address] [facility] Comment on above: Order Comment: TEST LDH WAS CANCELLED, 04/01/2023 02:14 Performed By: #### L DH ####[place] [id number] Laboratory - Chemistry and C hemistry - challengeon 04-01-2023 Albumin BCP dye [Mass/Vol] 4.7 g/dL 3.4 - 5.0 [facility] Work Phone: ALP [Catalytic activity/Vol] 73 U/L 33 - 110 [facility] Work Phone: ALT With P-5'-P [Catalytic activity/Vol] 18 U/L 7 - 45 [facility] Work Phone: Comment on above: Patients treated wit h Sulfasalazine may generate falsely decreased results for ALT. Anion gap [Moles/Vol] 19 mmol/L 10 - 20 [facility] [place] Work Phone: AST With P-5'-P [Catalytic activity/Vol] 20 U/L 9 - 39 [facility] [place] Work Phone: Bilirubin [Mass/Vol] 0.5 mg/dL 0.0 - 1.2 R [facility] [place] Work Phone: Calcium [Mass/Vol] 9.8 mg/dL 8.6 - 10.3 [facility] [place] Work Phone: Chloride [Moles/Vol] 99 mmol/L 98 - 107 [facility] [place] Work Phone: CO2 [Moles/Vol] 22 mmol/L 21 - 32 [facility] [place] Work Phone: Creatinine [Mass/Vol] 1.57 mg/dL above high threshold See Below [facility] [place] Work Phone: Comment on above: Reference Range: 0.5 0 - 1.05 Glucose [Mass/Vol] 104 mg/dL above high threshold 74 - 99 [facility] [place] Work Phone: Potassium [Moles/Vol] 4.4 mmol/L 3.5 - 5.3 [facility] [place] Work Phone: Protein [Mass/Vol] 7.2 g/dL 6.4 - 8.2 [facility] [place] Work Phone: Sodium [Moles/Vol] 136 mmol/L 136 - 145 [facility]h [facility] [place] Work Phone: Urea nitrogen [Mass/Vol] 23 mg/dL 6 - 23 [facility] [place] Work Phone: Lactate, Levelon 04-01-2023 Lactate [Moles/Vol] 0.9 mmol/L 0.4 - 2.0 [facility] [place] Work Phone: Comment on above: Venipuncture immedia tely after or during the administration of Metamizole may lead to falsely low results. Testing should be performed immediately prior to Metamizole dosing. Lactate [Moles/Vol] 2.7 mmol/L above high threshold 0.4 - 2.0 [facility] [place] Work Phone: Comment on above: Venipuncture immedia tely after or during the administration of Metamizole may lead to falsely low results. Testing should be performed immediately prior to Metamizole dosing. No Panel Informationon 04-01 40 {mL/min/1.73m2} Abnormal >90 [facility] [place] Work Phone: Comment on above: CALCULATIONS OF FRIEDA MATED GFR ARE PERFORMED USING THE 2020 CKD-EPI STUDY REFIT EQUATION WITHOUT THE RACE VARIABLE FOR THE IDMS-TRACEABLE CREATININE METHODS.https://jasn.asnjournals.org/content// N.3540639015 Provider Note - ED v3on - Provider Note - ED v3 Normal [facility] Risk Screen - Adult Emergenc yon 04-01-2023 Risk Screen - Adult Emergency Normal [facility] TSHon 04-01-2023 TSH Qn 2.89 m[IU]/L Normal 0.44 - 3.[address] [facility] Comment on above: Result Comment: TSH testing is performed using different testing methodology at [facility] than at other [facility]. Direct result comparisons should only be made within the same method. Performed By: #### T SH2 ####[place] [address] [place] [address] TSH - Thyroid Stimulating Ho rmone, Serumon 04-01-2023 TSH Qn 2.89 m[IU]/L See Below [facility] Work Phone: Comment on above: Reference Range: 0.4 4 - 3.98 TSH testing is performed using different testing methodology at [facility] than at other [facility]. Direct result comparisons should only be made within the same method. Triage - EDon 04-01-2023 Triage - ED Normal [facility] Therapy Communicationon Therapy Communication Message REEMA [...] Mar 26 2023 11:25AM EST (Author) Normal [facility] PT Progress Noteon PT Progress Note Therapy [...] code time is 39 minutes. Therapeutic Activity (94110):. HEP and POC review Education on RW height and safety with transfers Ambulation throughout clinic with CGA and w/c follow. Aquatic Therapy (86585): timed minutes 39, units 3 . Patient enter/exits poll with pool chair Patient needing one noodle to ambulate across pool 3 laps Standing heel raises x 12 Standing squats x 12 Standing hip abd/add x 12 Alt. march Steps x 12 Patient needing to lean against [pool wall for UE Paddles UE PADDLES x 20 ea. L2 Flex/ext, abd/add, push/pull, H. abd/add 100% UNLOADING 1 noodle Bike 5' Hip Abd/add 5' Hang 5' Free floating for body relaxation. WATSU. 'Scores and Scales' Signatures Electronically signed by : Pippa Freeman ITEM PROCESSOR; Mar 19 2023 10:03AM EST (Author) Electronically signed by : Trice Tejada PT; Mar 27 2023 11:03PM EST Normal [facility] PT Progress Noteon 3 PT Progress Note [...] you for this referral and please call [phone] with any questions or concerns. Adult Risk [...] Patient re (more content not included)... Normal [facility] Therapy Re-eval Noteon 03-10 Therapy Re-eval Note [...] with transfers-PARTIALLY MET, by week 5 Pain: 12/25 R knee pain baseline for ease with [...] you for this referral and please call [phone] with any questions or concerns. Adult Risk [...] ambulation. P (more content not included)... Normal [facility] [...] today. Patient has reassessment next visit with sami. PT. Precautions: seizures. PMHx:. Treatment Time in clinic started at 1:00 pm Time in clinic ended at 1:45 pm Total time in clinic is 45 minutes. Total timed code time is 40 minutes. Therapeutic Activity (31764):. HEP and POC review Education on RW height and safety with transfers Ambulation throughout clinic with CGA and w/c follow. Aquatic Therapy (38710): timed minutes 40, units 3 . Patient [...] Signatures Electronically signed by : Pippa Freeman ITEM PROCESSOR; Mar 08 2023 2:05PM EST (Author) Electronically signed by : Trice Tejada, PT; Mar 12 2023 6:50PM EST Normal [facility] PT Progress Noteon 3 [...] enter/exit pool. Patient needing one noodle and CHOKER HOOKER to ambulate across pool. Patient with improved [...] code time is 40 minutes. Therapeutic Activity (09213):. HEP and POC review Education on RW height and safety with transfers Ambulation throughout clinic with CGA and w/c follow. Aquatic Therapy (87019): timed minutes 40, units 3 . Patient [...] Signatures Electronically signed by : Pippa Freeman, ITEM PROCESSOR; Mar 03 2023 10:48AM EST (Author) Electronically signed by : Trice Tejada, PT; Mar 03 2023 5:39PM EST Normal [facility] PT Progress Noteon 3 PT Progress Note [...] enter/exit pool. Patient needing one noodle and CHOKER HOOKER to ambulate across pool. Patient needing to [...] code time is 40 minutes. Therapeutic Activity (36662):. HEP and POC review Education on RW height and safety with transfers Ambulation throughout clinic with CGA and w/c follow. Aquatic Therapy (07869): timed minutes 40, units 3 . Patient enter/exits poll with pool chair Patient needing one noodle to ambulate across pool 3 laps Standing heel raises x 12 Standing squats x 12 Standing hip abd/add x 12 Alt. march Steps x 12 Patient needing to lean against [pool wall for UE Paddles UE PADDLES x 20 ea. L2 Flex/ext, abd/add, push/pull, H. abd/add 100% UNLOADING 1 noodle Bike 5' Hip Abd/add 5' Hang 5' Free hanging with noodle, kicking B LE's. 'Scores and Scales' Signatures Electronically signed by : Pippa Freeman, ITEM PROCESSOR; Mar 01 2023 1:48PM EST (Author) Electronically signed by : Trice Tejada, PT; Mar 03 2023 5:39PM EST Normal [facility] PT Progress Noteon 3 PT Progress Note [...] enter/exit pool. Patient needing one noddle and CHOKER HOOKER to ambulate across pool. Patient needing one [...] code time is 40 minutes. Therapeutic Activity (08150):. HEP and POC review Education on RW height and safety with transfers Ambulation throughout clinic with CGA and w/c follow. Aquatic Therapy (82061): timed minutes 40, units 3 . Patient [...] Electronically signed by : Pippa Freeman PTA; Feb 26 2023 11:33AM EST (Author) Electronically signed by : Trice Tejada PT; Mar 03 2023 5:38PM EST Normal [...] having her blood pressure checked at the [facility] Her blood pressure is ranging on the [...] Morbid obesity (more content not included)... Normal [facility] Tobacco Screening.on 023 Tobacco use status CPHS b) [facility] DO Work Phone: APTTon 02-20-2023 aPTT Coag (Bld) [Time] 33 s Normal 26 - [address] [facility] Comment on above: Result Comment: THE APTT IS NO LONGER USED FOR MONITORING UNFRACTIONATED HEPARIN THERAPY. FOR MONITORING HEPARIN THERAPY, USE THE HEPARIN ASSAY. Performed By: #### A PTT ####[place] [address] [place] [address] Activated Partial Thrombopla stin Timeon 02-20-2023 aPTT Coag (PPP) [Time] 33 s 26 - 39 [facility] Mohinder 3 DO Work Phone: Comment on above: THE APTT IS NO LONGE R USED FOR MONITORING UNFRACTIONATED HEPARIN THERAPY. FOR MONITORING HEPARIN THERAPY, USE THE HEPARIN ASSAY. BNPon 02-20-2023 Natriuretic peptide B (Bld) [Mass/Vol] 27 pg/mL Normal 0 - [address] [facility] Comment on above: Result Comment: . <1 00 pg/mL - Heart failure [id number] pg/mL - Intermediate probability of acute heart. failure exacerbation. Correlate with clinical. context and patient history. >=300 pg/mL - Heart Failure likely. Correlate with clinical. context and patient history.BNP testing is performed using different testingmethodology at [facility] than at [facility]. Direct result comparisons shouldonly be made within the same method. Performed By: #### B NP2 ####[address] [address] CBC AND DIFFERENTIALon 02-20 % AUTOMATED IMMATURE GRAN 1.0 % High 0.0 - 0.[address] [facility] Comment on above: Result Comment: Suze ture Granulocyte Count (IG) includes promyelocytes, myelocytes and metamyelocytes but does not include bands. Percent differential counts (%) should be interpreted in the context of the absolute cell counts (cells/L). Performed By: #### C BCDF ####[address] [address] Basophils (Bld) [#/Vol] 0.02 10*3/uL Normal 0.00 - 0.[address] [facility] Comment on above: Performed By: #### C BCDF ####[address] [address] Basophils/100 WBC (Bld) 0.4 % Normal 0.0 - 2.[address] [facility] Comment on above: Performed By: #### C BCDF ####[address] [address] Eosinophils (Bld) [#/Vol] 0.11 10*3/uL Normal 0.00 - 0.[address] [facility] Comment on above: Performed By: #### C BCDF ####[address] [address] Eosinophils/100 WBC (Bld) 2.2 % Normal 0.0 - 6.[address] [facility] Comment on above: Performed By: #### C BCDF ####[address] [address] Erythrocyte distribution width (RBC) [Ratio] 13.5 % Normal 11.5 - 14.[address] [facility] Comment on above: Performed By: #### C BCDF ####[address] [address] Hematocrit (Bld) [Volume fraction] 39.4 % Normal 36.0 - 46.[address] [facility] Comment on above: Performed By: #### C BCDF ####[address] [address] Hemoglobin (Bld) [Mass/Vol] 13.3 g/dL Normal 12.0 - 16.[address] [facility] Comment on above: Performed By: #### C BCDF ####[address] [address] Lymphocytes (Bld) [#/Vol] 1.60 10*3/uL Normal 1.20 - 4.[address] [facility] Comment on above: Performed By: #### C BCDF ####[address] [address] Lymphocytes/100 WBC (Bld) 31.4 % Normal 13.0 - 44.[address] [facility] Comment on above: Performed By: #### C BCDF ####[address] [address] MCHC (RBC) [Mass/Vol] 33.8 g/dL Normal 32.0 - 36.0 [facility] Comment on above: Performed By: #### C BCDF ####[address] [address] MCV (RBC) [Entitic vol] 89 fL Normal 80 - [address] [facility] Comment on above: Performed By: #### C BCDF ####[address] [address] Monocytes (Bld) [#/Vol] 0.49 10*3/uL Normal 0.10 - 1.[address] [facility] Comment on above: Performed By: #### C BCDF ####[address] [address] Monocytes/100 WBC (Bld) 9.6 % Normal 2.0 - 10.[address] [facility] Comment on above: Performed By: #### C BCDF ####[address] [address] Neutrophils (Bld) [#/Vol] 2.82 10*3/uL Normal 1.20 - 7.[address] [facility] Comment on above: Result Comment: Perc ent differential counts (%) should be interpreted in the context of the absolute cell counts (cells/L). Performed By: #### C BCDF ####[address] [address] Neutrophils/100 WBC (Bld) 55.4 % Normal 40.0 - 80.[address] [facility] Comment on above: Performed By: #### C BCDF ####[address] [address] Platelets (Bld) [#/Vol] 112 10*3/uL Low 150 - [address] [facility] Comment on above: Result Comment: Plat elet count may be higher than reported due to presence of PlateletClumps. Performed By: #### C BCDF ####[place] [id number] RBC 4.41 x10E12/L Normal 4.00 - 5.[address] [facility] Comment on above: Performed By: #### C BCDF ####[address] [address] WBC (Bld) [#/Vol] 5.1 10*3/uL Normal 4.4 - 11.3 [facility] Comment on above: Performed By: #### C BCDF ####[address] [address] CHEST 1 VIEWon 02-20-2023 CHEST [address] [facility] COMPREHENSIVE PANELon 2022 Albumin [Mass/Vol] 3.9 g/dL Normal 3.4 - 5.0 [facility] Comment on above: Performed By: #### C MP ####[address] [address] ALP [Catalytic activity/Vol] 70 U/L Normal 33 - [address] [facility] Comment on above: Performed By: #### C MP ####[address] [address] ALT [Catalytic activity/Vol] 13 U/L Normal 7 - [address] [facility] Comment on above: Result Comment: Marjan ents treated with Sulfasalazine may generate falsely decreased results for ALT. Performed By: #### C MP ####[address] [address] Anion gap [Moles/Vol] 12 mmol/L Normal 10 - 20 [facility] Comment on above: Performed By: #### C MP ####[address] [address] AST [Catalytic activity/Vol] 17 U/L Normal 9 - [address] [facility] Comment on above: Performed By: #### C MP ####[address] [address] Bilirubin [Mass/Vol] 0.3 mg/dL Normal 0.0 - 1.2 [facility] Comment on above: Performed By: #### C MP ####[address] [address] Calcium [Mass/Vol] 9.2 mg/dL Normal 8.6 - 10.3 [facility] Comment on above: Performed By: #### C MP ####[address] [address] Chloride [Moles/Vol] 103 mmol/L Normal 98 - 107 [facility] Comment on above: Performed By: #### C MP ####[address] [address] Creatinine [Mass/Vol] 1.12 mg/dL High 0.50 - 1.05 [facility] Comment on above: Performed By: #### C MP ####[address] [address] GFR/1.73 sq M.predicted among non-blacks MDRD (S/P/Bld) [Vol rate/Area] 60 mL/min/{1.73_m2} Normal >[address] [facility] Comment on above: Result Comment: CALC ULATIONS OF ESTIMATED GFR ARE PERFORMED USING THE 2020 CKD-EPI STUDY REFIT EQUATION WITHOUT THE RACE VARIABLE FOR THE IDMS-TRACEABLE CREATININE METHODS.https://jasn.asnjournals.org/content// N.4750621430 Performed By: #### C MP ####[address] [address] Glucose [Mass/Vol] 91 mg/dL Normal 74 - 99 [facility] Comment on above: Performed By: #### C MP ####[address] [address] HCO3 (Bld) [Moles/Vol] 25 mmol/L Normal 21 - [address] [facility] Comment on above: Performed By: #### C MP ####[address] [address] Potassium [Moles/Vol] 4.1 mmol/L Normal 3.5 - 5.3 [facility] Comment on above: Performed By: #### C MP ####[address] [address] Protein [Mass/Vol] 6.4 g/dL Normal 6.4 - 8.2 [facility] Comment on above: Performed By: #### C MP ####[address] [address] Sodium [Moles/Vol] 136 mmol/L Normal 136 - 145 [facility] Comment on above: Performed By: #### C MP ####[address] [address] Urea nitrogen [Mass/Vol] 24 mg/dL High 6 - [address] [facility] Comment on above: Performed By: #### C MP ####[address] [address] Complete Blood Count + Diffe laureen 02-20-2023 Basophils/100 WBC (Bld) 0.4 % 0.0 - 2.0 -Nephrology- [facility] Mohinder 3 DO Work Phone: Erythrocyte distribution width (RBC) [Ratio] 13.5 % See Below -Nephrology- [facility] Mohinder 3 DO Work Phone: Comment on above: Reference Range: 11. 5 - 14.5 Hematocrit (Bld) [Volume fraction] 39.4 % See Below [place] [address] DO Work Phone: Comment on above: Reference Range: 36. 0 - 46.0 Hemoglobin (Bld) [Mass/Vol] 13.3 g/dL See Below [place] [address] DO Work Phone: Comment on above: Reference Range: 12. 0 - 16.0 Lymphocytes/100 WBC (Bld) 31.4 % See Below [place] [address] DO Work Phone: Comment on above: Reference Range: 13. 0 - 44.0 MCHC (RBC) [Mass/Vol] 33.8 g/dL See Below [place] [address] DO Work Phone: Comment on above: Reference Range: 32. 0 - 36.0 MCV (RBC) [Entitic vol] 89 fL 80 - 100 [place] [address] DO Work Phone: Monocytes/100 WBC (Bld) 9.6 % 2.0 - 10.0 [place] [address] DO Work Phone: Neutrophils/100 WBC (Bld) 55.4 % See Below [place] [address] DO Work Phone: Comment on above: Reference Range: 40. 0 - 80.0 Platelets (Bld) [#/Vol] 112 10*3/uL below low threshold 150 - 450 [place] [address] DO Work Phone: Comment on above: Platelet count may b e higher than reported due to presence of PlateletClumps. RBC (Bld) [#/Vol] 4.41 {x10E12/L} See Below [place] [address] DO Work Phone: Comment on above: Reference Range: 4.0 0 - 5.20 WBC (Bld) [#/Vol] 5.1 10*3/uL 4.4 - 11.3 [place] [address] DO Work Phone: Complete Blood Count + Differential 0.02 {x10E9/L} See Below [place] [address] DO Work Phone: Comment on above: Reference Range: 0.0 0 - 0.10 Complete Blood Count + Differential 0.11 {x10E9/L} See Below [place] [address] DO Work Phone: Comment on above: Reference Range: 0.0 0 - 0.70 Complete Blood Count + Differential 0.49 {x10E9/L} See Below [place] [address] DO Work Phone: Comment on above: Reference Range: 0.1 0 - 1.00 Complete Blood Count + Differential 1.60 {x10E9/L} See Below [place] [address] DO Work Phone: Comment on above: Reference Range: 1.2 0 - 4.80 Complete Blood Count + Differential 2.82 {x10E9/L} See Below [place] [address] DO Work Phone: Comment on above: Reference Range: 1.2 0 - 7.70 Percent differential counts (%) should be interpreted in the context of the absolute cell counts (cells/L). Complete Blood Count + Differential 2.2 % 0.0 - 6.0 [place] [address] DO Work Phone: Complete Blood Count + Differential 1.0 % above high threshold 0.0 - 0.9 [place] [address] DO Work Phone: Comment on above: Immature Granulocyte Count (IG) includes promyelocytes, myelocytes and metamyelocytes but does not include bands. Percent differential counts (%) should be interpreted in the context of the absolute cell counts (cells/L). D-DIMER, VTE EXCLUSIONon D-DIMER, VTE EXCLUSION <215 Normal < or = [address] [facility] Comment on above: Result Comment: The [...] PE exclusion.) Performed By: #### D IMEX ####[facility] [place] [address] Laboratory - Chemistry and C hemistry - challengeon 02-20-2023 Albumin BCP dye [Mass/Vol] 3.9 g/dL 3.4 - 5.0 [place] [address] DO Work Phone: ALP [Catalytic activity/Vol] 70 U/L 33 - 110 [place] [address] DO Work Phone: ALT With P-5'-P [Catalytic activity/Vol] 13 U/L 7 - 45 [place] [address] DO Work Phone: Comment on above: Patients treated wit h Sulfasalazine may generate falsely decreased results for ALT. Anion gap [Moles/Vol] 12 mmol/L 10 - 20 [place] [address] DO Work Phone: AST With P-5'-P [Catalytic activity/Vol] 17 U/L 9 - 39 [place] [address] DO Work Phone: Bilirubin [Mass/Vol] 0.3 mg/dL 0.0 - 1.2 [place] [address] DO Work Phone: Calcium [Mass/Vol] 9.2 mg/dL 8.6 - 10.3 -Nep [place] [address] DO Work Phone: Chloride [Moles/Vol] 103 mmol/L 98 - 107 -N [place] [address] DO Work Phone: CO2 [Moles/Vol] 25 mmol/L 21 - 32 -[place] [address] DO Work Phone: Creatinine [Mass/Vol] 1.12 mg/dL above high threshold See Below [place] [address] DO Work Phone: Comment on above: Reference Range: 0.5 0 - 1.05 Glucose [Mass/Vol] 91 mg/dL 74 - 99 -[place] [address] DO Work Phone: Potassium [Moles/Vol] 4.1 mmol/L 3.5 - 5.3 [facility] [place] [address] DO Work Phone: Protein [Mass/Vol] 6.4 g/dL 6.4 - 8.2 -[place] [address] DO Work Phone: Sodium [Moles/Vol] 136 mmol/L 136 - 145 -[place] [address] DO Work Phone: Urea nitrogen [Mass/Vol] 24 mg/dL above high threshold 6 - 23 [facility]phrologyLau[facility] [address] DO Work Phone: Laboratory - Coagulationon 0 - INR Coag (PPP) [Relative time] 0.9 {INR} 0.9 - 1.1 [facility]ph[facility] [address] DO Work Phone: PT Coag (PPP) [Time] 11.0 s 9.8 - 13.4 -N [facility] 3 DO Work Phone: No Panel Informationon 02-20 27 pg/mL 0 - 99 [facility] Work Phone: Comment on above: . <100 pg/mL - Heart failure [id number] pg/mL - Intermediate probability of acute heart. failure exacerbation. Correlate with clinical. context and patient history. >=300 pg/mL - Heart Failure likely. Correlate with clinical. context and patient history.BNP testing is performed using different testing methodology at [facility] than at other [facility]. Direct result comparisons should only be made within the same method. 60 {mL/min/1.73m2} >90 MP[facility]ep [facility] 3 DO Work Phone: Comment on above: CALCULATIONS OF FRIEDA MATED GFR ARE PERFORMED USING THE 2020 CKD-EPI STUDY REFIT EQUATION WITHOUT THE RACE VARIABLE FOR THE IDMS-TRACEABLE CREATININE METHODS.https://jasn.asnjournals.org/content/early// N.4443791842 <215 < or = 500 -[place] [address] DO Work Phone: Comment on above: The [...] [Time] 11.0 s Normal 9.8 - 13.4 [facility] Comment on above: Performed By: #### P TINR ####[place] [address] PT, INR 0.9 Normal 0.9 - 1.[address] [facility] Comment on above: Performed By: #### P TINR ####[place] [place] [address] Provider Note - ED v3on 05-0 Provider Note - ED v3 Normal [facility] Radiologyon 02-20-2023 XR Chest Single view Normal MP[facility] 3 DO Work Phone: Risk Screen - Adult Emergenc yon 02-20-2023 Risk Screen - Adult Emergency Normal [facility] TROPONIN I, HIGH SENSITIVITY on 02-20-2023 TROPONIN I, HIGH SENSITIVITY Canceled Normal [facility] Comment on above: Order Comment: TEST [...] is performed using a differenttesting methodology at [facility] than at [facility]. Direct result comparisons should onlybe made within the same method. Performed By: #### T [facility] ####[place] [place] [address] TROPONIN I, HIGH SENSITIVITY 6 ng/L Normal 0 - [address] [facility] Comment on above: Result Comment: .Les [...] is performed using a differenttesting methodology at [facility] than at [facility]. Direct result comparisons should onlybe made within the same method. Performed By: #### T [facility] ####[address] [address] TROPONIN I, HIGH SENSITIVITY 6 ng/L Normal 0 - [address] [facility] Comment on above: Result Comment: .Les [...] is performed using a differenttesting methodology at [facility] than at [facility]. Direct result comparisons should onlybe made within the same method. Performed By: #### T [facility] ####[address] [address] Tropinin I.cardiac panel High sensitivity method 6 ng/L 0 - 13 -Nephrology - [facility] Mohinder 3 DO Work Phone: Comment on [...] performed using a different testing methodology at [facility] than at other [facility]. Direct result comparisons should only be made within the same method. Tropinin I.cardiac panel High sensitivity method 6 ng/L 0 - 13 -Nephrology - [facility] Mohinder 3 DO Work Phone: Comment on [...] performed using a different testing methodology at [facility] than at other [facility]. Direct result comparisons should only be made within the same method. Triage - EDon 02-20-2023 Triage - ED Normal [facility] PT Progress Noteon 3 PT Progress [...] and keeps intact with ther-ex. Patient needing CHOKER HOOKER with noodle to ambulate across pool. Needing [...] code time is 40 minutes. Therapeutic Activity (83822):. HEP and POC review Education on RW height and safety with transfers Ambulation throughout clinic with CGA and w/c follow. Aquatic Therapy (53883): timed minutes 40, units 3 . Patient [...] Electronically signed by : Pippa Freeman PTA; Feb 19 2023 11:33AM EST (Author) Electronically signed by : Trice Tejada PT; Mar 03 2023 5:38PM EST Normal Touchworks PARATHYROID HORMONE,INTACTon 02-17-2023 PARATHYROID HORMONE,INTACT 35.4 pg/mL Normal 18.5 - 88.0 [facility] Comment on above: Performed By: #### P TH #### [facility] [address] [place] [address] ALBUMIN, URINE SPOTon 2022 ALBUMIN,URINE 383.6 mg/L Normal Not Established [facility] Comment on above: Performed By: #### A LBSP #### [facility] [address] 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 [address] CREATININE,URINE 156.0 mg/dL Normal 20.0 - 320.0 [facility] Comment on above: Performed By: #### A LBSP #### [facility] [address] [place] [address] COMPREHENSIVE PANELon 2022 Albumin [Mass/Vol] 4.0 g/dL Normal 3.4 - 5.0 [facility] Comment on above: Performed By: #### C MP #### [address] [address] ALP [Catalytic activity/Vol] 65 U/L Normal 33 - 110 [facility] Comment on above: Performed By: #### C MP #### [address] [address] ALT [Catalytic activity/Vol] 15 U/L Normal 7 - 45 [facility] Comment on above: Result Comment: Marjan ents treated with Sulfasalazine may generate falsely decreased results for ALT. Performed By: #### C MP #### [address] [address] Anion gap [Moles/Vol] 11 mmol/L Normal 10 - 20 [facility] Comment on above: Performed By: #### C MP #### [address] [address] AST [Catalytic activity/Vol] 19 U/L Normal 9 - 39 [facility] Comment on above: Performed By: #### C MP #### [address] [address] Bilirubin [Mass/Vol] 0.4 mg/dL Normal 0.0 - 1.2 [facility] Comment on above: Performed By: #### C MP #### [address] [address] Calcium [Mass/Vol] 9.5 mg/dL Normal 8.6 - 10.3 [facility] Comment on above: Performed By: #### C MP #### [address] [address] Chloride [Moles/Vol] 101 mmol/L Normal 98 - 107 [facility] Comment on above: Performed By: #### C MP #### [address] [address] Creatinine [Mass/Vol] 1.22 mg/dL High 0.50 - 1.05 [facility] Comment on above: Performed By: #### C MP #### [address] [address] GFR/1.73 sq M.predicted among non-blacks MDRD (S/P/Bld) [Vol rate/Area] 54 mL/min/{1.73_m2} Abnormal >90 [facility] Comment on above: Result Comment: CALC ULATIONS OF ESTIMATED GFR ARE PERFORMED USING THE 2020 CKD-EPI STUDY REFIT EQUATION WITHOUT THE RACE VARIABLE FOR THE IDMS-TRACEABLE CREATININE METHODS. https://jasn.asnjournals.org/content/early//ASN.948206 3250 Performed By: #### C MP #### [address] [address] Glucose [Mass/Vol] 83 mg/dL Normal 74 - 99 [facility] Comment on above: Performed By: #### C MP #### [address] [address] HCO3 (Bld) [Moles/Vol] 27 mmol/L Normal 21 - 32 [facility] Comment on above: Performed By: #### C MP #### [address] [address] Potassium [Moles/Vol] 4.3 mmol/L Normal 3.5 - 5.3 [facility] Comment on above: Performed By: #### C MP #### [address] [address] Protein [Mass/Vol] 6.8 g/dL Normal 6.4 - 8.2 [facility] Comment on above: Performed By: #### C MP #### [address] [address] Sodium [Moles/Vol] 135 mmol/L Low 136 - 145 [facility] Comment on above: Performed By: #### C MP #### [address] [address] Urea nitrogen [Mass/Vol] 31 mg/dL High 6 - 23 [facility] Comment on above: Performed By: #### C MP #### [address] [address] Laboratory - Chemistry and C hemistry - challengeon 02-16-2023 Albumin BCP dye [Mass/Vol] 4.0 g/dL 3.4 - 5.0 [facility] [address] DO Work Phone: Albumin Ql (U) 383.6 mg/L See Below [facility] Work Phone: Comment on above: Reference Range: Not Established Albumin/Creatinine DL <= 20 mg/L (U) [Mass ratio] 245.9 {ug/mg_crt} above high threshold 0.0 - 30.0 [facility] Work Phone: ALP [Catalytic activity/Vol] 65 U/L 33 - 110 [facility] [address] DO Work Phone: ALT With P-5'-P [Catalytic activity/Vol] 15 U/L 7 - 45 [facility] Work Phone: Comment on above: Patients treated wit h Sulfasalazine may generate falsely decreased results for ALT. Anion gap [Moles/Vol] 11 mmol/L 10 - 20 [facility] [place] [address] DO Work Phone: AST With P-5'-P [Catalytic activity/Vol] 19 U/L 9 - 39 [facility] [address] DO Work Phone: Bilirubin [Mass/Vol] 0.4 mg/dL 0.0 - 1.2 [facility] [place] [address] DO Work Phone: Calcium [Mass/Vol] 9.5 mg/dL 8.6 - 10.3 [place] [address] DO Work Phone: Chloride [Moles/Vol] 101 mmol/L 98 - 107 [place] [address] DO Work Phone: CO2 [Moles/Vol] 27 mmol/L 21 - 32 -[place] [address] DO Work Phone: Creatinine (U) [Mass/Vol] 156.0 mg/dL See Below [facility] Work Phone: Comment on above: Reference Range: 20. 0 - 320.0 Creatinine [Mass/Vol] 1.22 mg/dL above high threshold See Below [facility] [address] DO Work Phone: Comment on above: Reference Range: 0.5 0 - 1.05 Glucose [Mass/Vol] 83 mg/dL 74 - 99 -[place] [address] DO Work Phone: Potassium [Moles/Vol] 4.3 mmol/L 3.5 - 5.3 [facility] [place] [address] DO Work Phone: Protein [Mass/Vol] 6.8 g/dL 6.4 - 8.2 MP-[facility]ep [facility] Mohinder 3 DO Work Phone: Sodium [Moles/Vol] 135 mmol/L below low threshold 136 - 145 [facility] 3 DO Work Phone: Urea nitrogen [Mass/Vol] 31 mg/dL above high threshold 6 - 23 [facility] 3 DO Work Phone: MAGNESIUMon 02-16-2023 Magnesium [Mass/Vol] 1.77 mg/dL Normal 1.60 - 2.40 [facility] Comment on above: Performed By: #### M G #### [address] [address] Magnesium, Serumon Magnesium [Mass/Vol] 1.77 mg/dL See Below MP-N [facility] 3 DO Work Phone: Comment on above: Reference Range: 1.6 0 - 2.40 No Panel Informationon 02-16 54 {mL/min/1.73m2} Abnormal >90 [facility] 3 DO Work Phone: Comment on above: CALCULATIONS OF FRIEDA MATED GFR ARE PERFORMED USING THE 2020 CKD-EPI STUDY REFIT EQUATION WITHOUT THE RACE VARIABLE FOR THE IDMS-TRACEABLE CREATININE METHODS.https://jasn.asnjournals.org/content/early/ N.2445277225 PHOSPHORUSon 02-16-2023 Phosphate [Mass/Vol] 3.2 mg/dL Normal 2.5 - 4.9 [facility] Comment on above: Result Comment: The performance characteristics of phosphorus testing in heparinized plasma have been validated by the individual laboratory site where testing is performed. Testing on heparinized plasma is not approved by the FDA; however, such approval is not necessary. Performed By: #### P HOS #### [address] [address] Parathormone Intact, Serumon 02-16-2023 Parathyrin.intact [Mass/Vol] 35.4 pg/mL See Below [facility] Work Phone: Comment on above: Reference Range: 18. 5 - 88.0 Phosphorus, Serumon 02-17-20 23 Phosphate [Mass/Vol] 3.2 mg/dL 2.5 - 4.9 [facility] 3 DO Work Phone: Comment on above: The performance shira acteristics of phosphorus testing in heparinized plasma have been validated by the individual laboratory site where testing is performed. Testing on heparinized plasma is not approved by the FDA; however, such approval is not necessary. UA MICROSCOPICon 02-16-2023 BACTERIA 1+ /HPF Abnormal [facility] Comment on above: Performed By: #### U AMIC #### [place] [address] HYALINE CAST 1+ /LPF Abnormal [facility] Comment on above: Performed By: #### U AMIC #### [address] [address] Mucus Ql (Urine sed) 1+ /LPF Normal [facility] Comment on above: Performed By: #### U AMIC #### [address] [address] RBC 1 /HPF Normal 0-5 [facility] Comment on above: Performed By: #### U AMIC #### [address] [address] SQUAMOUS EPITH. CELLS 24 /HPF Normal [facility] Comment on above: Performed By: #### U AMIC #### [address] [address] WBC 4 /HPF Normal 0-5 [facility] Comment on above: Performed By: #### U AMIC #### [place] [address] URIC ACIDon 02-16-2023 Urate [Mass/Vol] 4.3 mg/dL Normal 2.3 - 6.7 [facility] Comment on above: Result Comment: Nathalie puncture immediately after or during the administration of Metamizole may lead to falsely low results. Testing should be performed immediately prior to Metamizole dosing. Performed By: #### P TH #### [facility] [address] [place] [address] URINALYSISon 02-16-2023 Appearance (U) HAZY Normal CLEAR [facility] Comment on above: Performed By: #### U A #### [address] [address] Bilirubin Ql (U) Negative Normal NEGATIVE [facility] Comment on above: Performed By: #### U A #### [address] [address] Hemoglobin Ql (U) MODERATE(2+) Abnormal NEGATIVE [facility] Comment on above: Performed By: #### U A #### [address] [address] Nitrite Ql (U) Negative Normal NEGATIVE [facility] Comment on above: Performed By: #### U A #### [address] [address] Protein Ql (U) 100(2+) Abnormal NEGATIVE [facility] Comment on above: Performed By: #### U A #### [address] [address] Specific gravity (U) [Rel density] 1.021 Normal 1.005 - 1.035 [facility] Comment on above: Performed By: #### U A #### [address] [address] Urobilinogen (U) [Mass/Vol] mg/dL Normal 0.0 - 1.9 [facility] Comment on above: Performed By: #### U A #### [address] [address] Uric Acid, Serumon 3 Urate [Mass/Vol] 4.3 mg/dL 2.3 - 6.7 MP-Nephr ology- [facility] Mohinder 3 DO Work Phone: Comment on above: Venipuncture immedia tely after or during the administration of Metamizole may lead to falsely low results. Testing should be performed immediately prior to Metamizole dosing. Urinalysison 02-16-2023 Color (U) Yellow Normal STRAW,YELLOW MP-Nephrolog y- [facility] 3 DO Work Phone: Comment on above: Reference Range: STR AW,YELLOW Performed By: #### U A #### [address] [address] Glucose Ql (U) Negative Normal NEGATIVE MP-Nephrol [facility] [place] [address] DO Work Phone: Comment on above: Performed By: #### U A #### [address] [address] Ketones Ql (U) Negative Normal NEGATIVE MP-Nephrol [place] [address] DO Work Phone: Comment on above: Performed By: #### U A #### [address] [address] Leukocyte esterase Test strip Ql (U) TRACE Abnormal NEGATIVE -[place] [address] DO Work Phone: Comment on above: Performed By: #### U A #### [address] [address] pH (U) 5.0 [pH] Normal 5.0 - 8.0 -Nephrology- [place] [address] DO Work Phone: Comment on above: Performed By: #### U A #### [address] [address] Protein (U) [Mass/Vol] 100(2+) Abnormal NEGATIVE MP-[place] [address] DO Work Phone: RBC (U) [#/Vol] MODERATE(2+) Abnormal NEGATIVE MP-Neph rology- [facility] 3 DO Work Phone: Specific gravity (U) [Rel density] 1.021 1 See Below [place] [address] DO Work Phone: Comment on above: Reference Range: 1.0 05 - 1.035 Urinalysis Negative NEGATIVE [place] [address] DO Work Phone: Urinalysis <2.0 0.0 - 1.9 [place] [address] DO Work Phone: Urinalysis HAZY CLEAR [place] [address] DO Work Phone: Urinalysis, Microscopicon Hyaline casts LM Ql (Urine sed) 1+ Abnormal [place] [address] DO Work Phone: Urinalysis, Microscopic 1+ Abnormal [place] [address] DO Work Phone: Urinalysis, Microscopic 24 {/HPF} [place] [address] DO Work Phone: Urinalysis, Microscopic 1 {/HPF} 0-5 [place] [address] DO Work Phone: Urinalysis, Microscopic 4 {/HPF} 0-5 [place] [address] DO Work Phone: VITAMIN D, 25-HYDROXYon 05- VITAMIN D, 25-HYDROXY 44 ng/mL Normal [facility] Comment on above: Result Comment: . DEFICIENCY: < 20 NG/ML INSUFFICIENCY: 20-29 NG/ML SUFFICIENCY: 30-100 NG/ML THIS ASSAY ACCURATELY QUANTIFIES THE SUM OF VITAMIN D3, 25-HYDROXY AND VIT D2,25-HYDROXY. Performed By: #### V TDOH #### [place] [address] Vitamin D 25-Hydroxyon 02-16 25-hydroxyvitamin D3 [Mass/Vol] 44 ng/mL [facility] 3 DO Work Phone: Comment on above: .DEFICIENCY: [...] pool chair. Patient needing one noodle with CHOKER HOOKER to ambulate from pool chair across pool [...] code time is 40 minutes. Therapeutic Activity (64088):. HEP and POC review Education on RW height and safety with transfers Ambulation throughout clinic with CGA and w/c follow. Aquatic Therapy (83177): timed minutes 40, units 3 . Patient [...] Signatures Electronically signed by : Pippa Freeman, ITEM PROCESSOR; Feb 15 2023 2:31PM EST (Author) Electronically signed by : Trice Tejada, PT; Feb 16 2023 2:43PM EST Normal [...] one noodle to ambulate across pool with CHOKER HOOKER. Patient needing one UE support with SBA [...] code time is 39 minutes. Therapeutic Activity (82768):. HEP and POC review Education on RW height and safety with transfers Ambulation throughout clinic with CGA and w/c follow. Aquatic Therapy (25765): timed minutes 39, units 3 . Not performed this date Patient enter/exits poll with pool chair Patient needing one noodle to ambulate across pool 3 laps Standing heel raises x 10 Standing squats x 10 Standing hip abd/add x 10 Alt. december Steps x 10 Patiet needing to lean against [pool wall for UE Paddles UE PADDLES x 20 ea. Open Flex/ext, abd/add, push/pull, H. abd/add 100% UNLOADING 1 noodle Bike 5' Hip Abd/add 5' Hang 5' Free hanging with noodle, kicking B LE's. 'Scores and Scales' Signatures Electronically signed by : Pippa Freeman ITEM PROCESSOR; Feb 12 2023 8:31AM EST (Author) Electronically signed by : Trice Tejada PT; Feb 15 2023 11:33AM EST Normal Touchworks CBC AND DIFFERENTIALon 02-05 % AUTOMATED IMMATURE GRAN Canceled [facility] Comment on above: Order Comment: TEST CBC AND DIFFERENTIAL WAS CANCELLED, 02/05/2023 14:02 Result Comment: Suze ture Granulocyte Count (IG) includes promyelocytes, myelocytes and metamyelocytes but does not include bands. Percent differential counts (%) should be interpreted in the context of the absolute cell counts (cells/L). Performed By: #### C BCDF ####[place] [address] [place] [address] % BASOPHIL Canceled Normal [facility] Comment on above: Order Comment: TEST CBC AND DIFFERENTIAL WAS CANCELLED, 02/05/2023 14:02 Performed By: #### C BCDF ####[address] [address] % EOSINOPHIL Canceled Normal [facility] Comment on above: Order Comment: TEST CBC AND DIFFERENTIAL WAS CANCELLED, 02/05/2023 14:02 Performed By: #### C BCDF ####[address] [address] % LYMPHOCYTE Canceled Normal [facility] Comment on above: Order Comment: TEST CBC AND DIFFERENTIAL WAS CANCELLED, 02/05/2023 14:02 Performed By: #### C BCDF ####[address] [address] % MONOCYTE Canceled Normal [facility] Comment on above: Order Comment: TEST CBC AND DIFFERENTIAL WAS CANCELLED, 02/05/2023 14:02 Performed By: #### C BCDF ####[address] [address] % NEUTROPHIL Canceled [facility] Comment on above: Order Comment: TEST CBC AND DIFFERENTIAL WAS CANCELLED, 02/05/2023 14:02 Performed By: #### C BCDF ####[address] [address] BASOPHIL Canceled [facility] Comment on above: Order Comment: TEST CBC AND DIFFERENTIAL WAS CANCELLED, 02/05/2023 14:02 Performed By: #### C BCDF ####[address] [address] DIFFERENTIAL Canceled [facility] Comment on above: Order Comment: TEST CBC AND DIFFERENTIAL WAS CANCELLED, 02/05/2023 14:02 Performed By: #### C BCDF ####[address] [address] EOSINOPHIL Canceled [facility] Comment on above: Order Comment: TEST CBC AND DIFFERENTIAL WAS CANCELLED, 02/05/2023 14:02 Performed By: #### C BCDF ####[address] [address] HCT Canceled [facility] Comment on above: Order Comment: TEST CBC AND DIFFERENTIAL WAS CANCELLED, 02/05/2023 14:02 Performed By: #### C BCDF ####[place] [address] HGB Canceled [facility] Comment on above: Order Comment: TEST CBC AND DIFFERENTIAL WAS CANCELLED, 02/05/2023 14:02 Performed By: #### C BCDF ####[place] [address] LYMPHOCYTE Canceled [facility] Comment on above: Order Comment: TEST CBC AND DIFFERENTIAL WAS CANCELLED, 02/05/2023 14:02 Performed By: #### C BCDF ####[place] [address] MCHC Canceled [facility] Comment on above: Order Comment: TEST CBC AND DIFFERENTIAL WAS CANCELLED, 02/05/2023 14:02 Performed By: #### C BCDF ####[place] [address] MCV Canceled [facility] Comment on above: Order Comment: TEST CBC AND DIFFERENTIAL WAS CANCELLED, 02/05/2023 14:02 Performed By: #### C BCDF ####[place] [address] MONOCYTE Canceled [facility] Comment on above: Order Comment: TEST CBC AND DIFFERENTIAL WAS CANCELLED, 02/05/2023 14:02 Performed By: #### C BCDF ####[place] [address] NEUTROPHIL Canceled [facility] Comment on above: Order Comment: TEST CBC AND DIFFERENTIAL WAS CANCELLED, 02/05/2023 14:02 Result Comment: Perc ent differential counts (%) should be interpreted in the context of the absolute cell counts (cells/L). Performed By: #### C BCDF ####[place] [address] PLT Canceled [facility] Comment on above: Order Comment: TEST CBC AND DIFFERENTIAL WAS CANCELLED, 02/05/2023 14:02 Performed By: #### C BCDF ####[address] [address] RBC Canceled [facility] Comment on above: Order Comment: TEST CBC AND DIFFERENTIAL WAS CANCELLED, 02/05/2023 14:02 Performed By: #### C BCDF ####[address] [address] RDW-CV Canceled [facility] Comment on above: Order Comment: TEST CBC AND DIFFERENTIAL WAS CANCELLED, 02/05/2023 14:02 Performed By: #### C BCDF ####[address] [address] WBC Canceled [facility] Comment on above: Order Comment: TEST CBC AND DIFFERENTIAL WAS CANCELLED, 02/05/2023 14:02 Performed By: #### C BCDF ####[address] [address] Clinic Note - Education Adul ton 02-04-2023 Clinic Note - Education Adult [facility] Clinic Note - Intakeon 02-04 Clinic Note - Intake [facility] Clinic Note - Heme Onc-Follo w Up Visiton 02-03-2023 Clinic Note - Heme Onc-Follow Up Visit [facility] PT Progress Noteon PT Progress Note Therapy [...] you for this referral and please call [phone] with any questions or concerns. Adult Risk [...] of R (more content not included)... Normal [facility] Therapy Re-eval Noteon 01-29 Therapy Re-eval Note [...] you for this referral and please call [phone] with any questions or concerns. Adult Risk [...] 01/25 p (more content not included)... Normal Next Performance CBC AND DIFFERENTIALon 01-27 % AUTOMATED IMMATURE GRAN 1.0 % High 0.0 - 0.9 [facility] Comment on above: Result Comment: Suze ture Granulocyte Count (IG) includes promyelocytes, myelocytes and metamyelocytes but does not include bands. Percent differential counts (%) should be interpreted in the context of the absolute cell counts (cells/L). Performed By: #### P TH #### [facility] [address] [place] [address] Basophils (Bld) [#/Vol] 0.02 10*3/uL Normal 0.00 - 0.10 [facility] Comment on above: Performed By: #### P TH #### [facility] [address] [place] [address] Basophils/100 WBC (Bld) 0.4 % Normal 0.0 - 2.0 [facility] Comment on above: Performed By: #### P TH #### [facility] [address] [place] [address] Eosinophils (Bld) [#/Vol] 0.09 10*3/uL Normal 0.00 - 0.70 [facility] Comment on above: Performed By: #### P TH #### [facility] [address] [place] [address] Eosinophils/100 WBC (Bld) 1.7 % Normal 0.0 - 6.0 [facility] Comment on above: Performed By: #### P TH #### [facility] [address] [place] [address] Erythrocyte distribution width (RBC) [Ratio] 13.2 % Normal 11.5 - 14.5 [facility] Comment on above: Performed By: #### P TH #### [facility] [address] [place] [address] Hematocrit (Bld) [Volume fraction] 40.4 % Normal 36.0 - 46.0 [facility] Comment on above: Performed By: #### P TH #### [facility] [address] [place] [address] Hemoglobin (Bld) [Mass/Vol] 13.1 g/dL Normal 12.0 - 16.0 [facility] Comment on above: Performed By: #### P TH #### [facility] [address] [place] [address] Lymphocytes (Bld) [#/Vol] 1.73 10*3/uL Normal 1.20 - 4.80 [facility] Comment on above: Performed By: #### P TH #### [facility] [address] [place] [address] Lymphocytes/100 WBC (Bld) 33.5 % Normal 13.0 - 44.0 [facility] Comment on above: Performed By: #### P TH #### [facility] [address] [place] [address] MCHC (RBC) [Mass/Vol] 32.4 g/dL Normal 32.0 - 36.0 [facility] Comment on above: Performed By: #### P TH #### [facility] [address] [place] [address] MCV (RBC) [Entitic vol] 91 fL Normal 80 - 100 [facility] Comment on above: Performed By: #### P TH #### [facility] [address] [place] [address] Monocytes (Bld) [#/Vol] 0.51 10*3/uL Normal 0.10 - 1.00 [facility] Comment on above: Performed By: #### P TH #### [facility] [address] [place] [address] Monocytes/100 WBC (Bld) 9.9 % Normal 2.0 - 10.0 [facility] Comment on above: Performed By: #### P TH #### [facility] [address] [place] [address] Neutrophils (Bld) [#/Vol] 2.77 10*3/uL Normal 1.20 - 7.70 [facility] Comment on above: Result Comment: Perc ent differential counts (%) should be interpreted in the context of the absolute cell counts (cells/L). Performed By: #### P TH #### [facility] [address] [place] [address] Neutrophils/100 WBC (Bld) 53.5 % Normal 40.0 - 80.0 [facility] Comment on above: Performed By: #### P TH #### [facility] [address] [place] [address] Platelets (Bld) [#/Vol] 125 10*3/uL Low 150 - 450 [facility] Comment on above: Performed By: #### P TH #### [facility] [address] [place] [address] RBC 4.42 x10E12/L Normal 4.00 - 5.20 [facility] Comment on above: Performed By: #### P TH #### [facility] [address] [place] [address] WBC (Bld) [#/Vol] 5.2 10*3/uL Normal 4.4 - 11.3 [facility] Comment on above: Performed By: #### P TH #### [facility] [address] [place] [address] COMPREHENSIVE PANELon 2022 Albumin [Mass/Vol] 4.0 g/dL Normal 3.4 - 5.0 [facility] Comment on above: Performed By: #### P TH #### [facility] [address] [place] [address] ALP [Catalytic activity/Vol] 58 U/L Normal 33 - 110 [facility] Comment on above: Performed By: #### P TH #### [facility] [address] [place] [address] ALT [Catalytic activity/Vol] 20 U/L Normal 7 - 45 [facility] Comment on above: Result Comment: Marjan ents treated with Sulfasalazine may generate falsely decreased results for ALT. Performed By: #### P TH #### [facility] [address] [place] [address] Anion gap [Moles/Vol] 10 mmol/L Normal 10 - 20 [facility] Comment on above: Performed By: #### P TH #### [facility] [address] [place] [address] AST [Catalytic activity/Vol] 24 U/L Normal 9 - 39 [facility] Comment on above: Performed By: #### P TH #### [facility] [address] [place] [address] Bilirubin [Mass/Vol] 0.4 mg/dL Normal 0.0 - 1.2 [facility] Comment on above: Performed By: #### P TH #### [facility] [address] [place] [address] Calcium [Mass/Vol] 9.8 mg/dL Normal 8.6 - 10.3 [facility] Comment on above: Performed By: #### P TH #### [facility] [address] [place] [address] Chloride [Moles/Vol] 101 mmol/L Normal 98 - 107 [facility] Comment on above: Performed By: #### P TH #### [facility] [address] [place] [address] Creatinine [Mass/Vol] 1.27 mg/dL High 0.50 - 1.05 [facility] Comment on above: Performed By: #### P TH #### [facility] [address] [place] [address] GFR/1.73 sq M.predicted among non-blacks MDRD (S/P/Bld) [Vol rate/Area] 52 mL/min/{1.73_m2} Abnormal >90 [facility] Comment on above: Result Comment: CALC ULATIONS OF ESTIMATED GFR ARE PERFORMED USING THE 2020 CKD-EPI STUDY REFIT EQUATION WITHOUT THE RACE VARIABLE FOR THE IDMS-TRACEABLE CREATININE METHODS. https://jasn.asnjournals.org/content/early//ASN.123669 5311 Performed By: #### P TH #### [facility] [address] [place] [address] Glucose [Mass/Vol] 80 mg/dL Normal 74 - 99 [facility] Comment on above: Performed By: #### P TH #### [facility] [address] [place] [address] HCO3 (Bld) [Moles/Vol] 29 mmol/L Normal 21 - 32 [facility] Comment on above: Performed By: #### P TH #### [facility] [address] [place] [address] Potassium [Moles/Vol] 4.8 mmol/L Normal 3.5 - 5.3 [facility] Comment on above: Performed By: #### P TH #### [facility] [address] [place] [address] Protein [Mass/Vol] 6.3 g/dL Low 6.4 - 8.2 [facility] Comment on above: Performed By: #### P TH #### [facility] [address] [place] [address] Sodium [Moles/Vol] 135 mmol/L Low 136 - 145 [facility] Comment on above: Performed By: #### P TH #### [facility] [address] [place] [address] Urea nitrogen [Mass/Vol] 19 mg/dL Normal 6 - 23 [facility] Comment on above: Performed By: #### P TH #### [facility] [address] [place] [address] Complete Blood Count + Diffe rentialon 01-27-2023 Basophils/100 WBC (Bld) 0.4 % 0.0 - 2.0 [place] [address] DO Work Phone: Erythrocyte distribution width (RBC) [Ratio] 13.2 % See Below [place] [address] DO Work Phone: Comment on above: Reference Range: 11. 5 - 14.5 Hematocrit (Bld) [Volume fraction] 40.4 % See Below [place] [address] DO Work Phone: Comment on above: Reference Range: 36. 0 - 46.0 Hemoglobin (Bld) [Mass/Vol] 13.1 g/dL See Below [place] [address] DO Work Phone: Comment on above: Reference Range: 12. 0 - 16.0 Lymphocytes/100 WBC (Bld) 33.5 % See Below [place] [address] DO Work Phone: Comment on above: Reference Range: 13. 0 - 44.0 MCHC (RBC) [Mass/Vol] 32.4 g/dL See Below [place] [address] DO Work Phone: Comment on above: Reference Range: 32. 0 - 36.0 MCV (RBC) [Entitic vol] 91 fL 80 - 100 [place] [address] DO Work Phone: Monocytes/100 WBC (Bld) 9.9 % 2.0 - 10.0 [place] [address] DO Work Phone: Neutrophils/100 WBC (Bld) 53.5 % See Below [place] [address] DO Work Phone: Comment on above: Reference Range: 40. 0 - 80.0 Platelets (Bld) [#/Vol] 125 10*3/uL below low threshold 150 - 450 [place] [address] DO Work Phone: RBC (Bld) [#/Vol] 4.42 {x10E12/L} See Below [place] [address] DO Work Phone: Comment on above: Reference Range: 4.0 0 - 5.20 WBC (Bld) [#/Vol] 5.2 10*3/uL 4.4 - 11.3 [place] [address] DO Work Phone: Complete Blood Count + Differential 0.02 {x10E9/L} See Below [place] [address] DO Work Phone: Comment on above: Reference Range: 0.0 0 - 0.10 Complete Blood Count + Differential 0.09 {x10E9/L} See Below [place] [address] DO Work Phone: Comment on above: Reference Range: 0.0 0 - 0.70 Complete Blood Count + Differential 0.51 {x10E9/L} See Below [place] [address] DO Work Phone: Comment on above: Reference Range: 0.1 0 - 1.00 Complete Blood Count + Differential 1.73 {x10E9/L} See Below [place] [address] DO Work Phone: Comment on above: Reference Range: 1.2 0 - 4.80 Complete Blood Count + Differential 2.77 {x10E9/L} See Below [place] [address] DO Work Phone: Comment on above: Reference Range: 1.2 0 - 7.70 Percent differential counts (%) should be interpreted in the context of the absolute cell counts (cells/L). Complete Blood Count + Differential 1.7 % 0.0 - 6.0 [place] [address] DO Work Phone: Complete Blood Count + Differential 1.0 % above high threshold 0.0 - 0.9 [place] [address] DO Work Phone: Comment on above: Immature Granulocyte Count (IG) includes promyelocytes, myelocytes and metamyelocytes but does not include bands. Percent differential counts (%) should be interpreted in the context of the absolute cell counts (cells/L). Laboratory - Chemistry and C hemistry - challengeon 01-27-2023 Albumin BCP dye [Mass/Vol] 4.0 g/dL 3.4 - 5.0 [place] [address] DO Work Phone: ALP [Catalytic activity/Vol] 58 U/L 33 - 110 [place] [address] DO Work Phone: ALT With P-5'-P [Catalytic activity/Vol] 20 U/L 7 - 45 [place] [address] DO Work Phone: Comment on above: Patients treated wit h Sulfasalazine may generate falsely decreased results for ALT. Anion gap [Moles/Vol] 10 mmol/L 10 - 20 [place] [address] DO Work Phone: AST With P-5'-P [Catalytic activity/Vol] 24 U/L 9 - 39 [facility] [address] [facility] Work Phone: Bilirubin [Mass/Vol] 0.4 mg/dL 0.0 - 1.2 -N [place] [address] DO Work Phone: Calcium [Mass/Vol] 9.8 mg/dL 8.6 - 10.3 -[place] [address] DO Work Phone: Chloride [Moles/Vol] 101 mmol/L 98 - 107 [facility] [place] [address] DO Work Phone: CO2 [Moles/Vol] 29 mmol/L 21 - 32 -Neph[place] logA[place] [address] DO Work Phone: Creatinine [Mass/Vol] 1.27 mg/dL above high threshold See Below [place] [address] DO Work Phone: Comment on above: Reference Range: 0.5 0 - 1.05 Glucose [Mass/Vol] 80 mg/dL 74 - 99 [place] [address] DO Work Phone: Potassium [Moles/Vol] 4.8 mmol/L 3.5 - 5.3 [place] [address] DO Work Phone: Protein [Mass/Vol] 6.3 g/dL below low threshold 6.4 - 8.2 [place] [address] DO Work Phone: Sodium [Moles/Vol] 135 mmol/L below low threshold 136 - 145 [place] [address] DO Work Phone: Urea nitrogen [Mass/Vol] 19 mg/dL 6 - 23 [place] [address] DO Work Phone: MAGNESIUMon 01-27-2023 Magnesium [Mass/Vol] 1.85 mg/dL Normal 1.60 - 2.40 [facility] Comment on above: Performed By: #### M G #### [facility] [address] [place] [address] Magnesium, Serumon Magnesium [Mass/Vol] 1.85 mg/dL See Below MP-N [facility] Moh[place] 3 DO Work Phone: Comment on above: Reference Range: 1.6 0 - 2.40 No Panel Informationon 01-27 52 {mL/min/1.73m2} Abnormal >90 MP-Nep ology- [facility] Mohinder 3 DO Work Phone: Comment on above: CALCULATIONS OF FRIEDA MATED GFR ARE PERFORMED USING THE 2020 CKD-EPI STUDY REFIT EQUATION WITHOUT THE RACE VARIABLE FOR THE IDMS-TRACEABLE CREATININE METHODS.https://jasn.asnjournals.org/content/early// N.9644973227 VALPROIC ACIDon 01-27-2023 VALPROIC ACID 52 ug/mL Normal 50 - 100 [facility] Comment on above: Performed By: #### P TH #### [facility] [address] [place] [address] Valproic Acid Level, Serumon 01-27-2023 Valproate [Mass/Vol] 52 ug/mL 50 - 100 MP-N [facility] Mohinder 3 DO Work Phone: [...] Delayed Release Albumin, Urine Spot; Status:Active; Requested for:26Jan2023; Comprehensive Metabolic Panel; Status:Active; Requested for:26Jan2023; Magnesium, Serum; Status:Active; Requested for:26Jan2023; Parathormone Intact, Serum; Status:Active; Requested for:26Jan2023; Phosphorus, Serum; Status:Active; Requested for:26Jan2023; Uric Acid, Serum; Status:Active; Requested for:26Jan2023; Urinalysis; Status:Active; Requested for:26Jan2023; Vitamin D 25-Hydroxy; Status:Active; Requested for:26Jan2023; Stop: Doxazosin Mesylate 4 MG Oral Tablet Stop: Ergocalciferol 1.25 MG (76492 UT) Oral Capsule Stop: Lisinopril 10 MG Oral Tablet Stop: Vitamin D3 1.25 MG (40820 UT) Oral Capsule Patient Discussion/Summary Plan: 1. 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 Does not take NSAIDs Does feel dizzy and lightheaded at [facility] Review of Systems Constitutional: no [...] (E87.6) H (more content not included)... Normal [employer] Tobacco Screening.on 023 Tobacco use status [facility] b) No MP-Nephrology- [facility] Mohinder 3 DO Work Phone: CBC AND DIFFERENTIALon 01-21 % AUTOMATED IMMATURE GRAN 3.1 % High 0.0 - 0.[address] [facility] Comment on above: Result Comment: Suze ture Granulocyte Count (IG) includes promyelocytes, myelocytes and metamyelocytes but does not include bands. Percent differential counts (%) should be interpreted in the context of the absolute cell counts (cells/L). Performed By: #### C BCDF ####[address] [address] Basophils (Bld) [#/Vol] 0.02 10*3/uL Normal 0.00 - 0.[address] [facility] Comment on above: Performed By: #### C BCDF ####[address] [address] Basophils/100 WBC (Bld) 0.4 % Normal 0.0 - 2.[address] [facility] Comment on above: Performed By: #### C BCDF ####[address] [address] Eosinophils (Bld) [#/Vol] 0.07 10*3/uL Normal 0.00 - 0.[address] [facility] Comment on above: Performed By: #### C BCDF ####[address] [address] Eosinophils/100 WBC (Bld) 1.5 % Normal 0.0 - 6.[address] [facility] Comment on above: Performed By: #### C BCDF ####[address] [address] Erythrocyte distribution width (RBC) [Ratio] 12.5 % Normal 11.5 - 14.[address] [facility] Comment on above: Performed By: #### C BCDF ####[address] [address] Hematocrit (Bld) [Volume fraction] 38.1 % Normal 36.0 - 46.[address] [facility] Comment on above: Performed By: #### C BCDF ####[address] [address] Hemoglobin (Bld) [Mass/Vol] 12.6 g/dL Normal 12.0 - 16.[address] [facility] Comment on above: Performed By: #### C BCDF ####[address] [address] Lymphocytes (Bld) [#/Vol] 1.42 10*3/uL Normal 1.20 - 4.[address] [facility] Comment on above: Performed By: #### C BCDF ####[address] [address] Lymphocytes/100 WBC (Bld) 31.1 % Normal 13.0 - 44.[address] [facility] Comment on above: Performed By: #### C BCDF ####[address] [address] MCHC (RBC) [Mass/Vol] 33.1 g/dL Normal 32.0 - 36.0 [facility] Comment on above: Performed By: #### C BCDF ####[address] [address] MCV (RBC) [Entitic vol] 90 fL Normal 80 - [address] [facility] Comment on above: Performed By: #### C BCDF ####[address] [address] Monocytes (Bld) [#/Vol] 0.44 10*3/uL Normal 0.10 - 1.[address] [facility] Comment on above: Performed By: #### C BCDF ####[address] [address] Monocytes/100 WBC (Bld) 9.6 % Normal 2.0 - 10.[address] [facility] Comment on above: Performed By: #### C BCDF ####[address] [address] Neutrophils (Bld) [#/Vol] 2.48 10*3/uL Normal 1.20 - 7.[address] [facility] Comment on above: Result Comment: Perc ent differential counts (%) should be interpreted in the context of the absolute cell counts (cells/L). Performed By: #### C BCDF ####[address] [address] Neutrophils/100 WBC (Bld) 54.3 % Normal 40.0 - 80.[address] [facility] Comment on above: Performed By: #### C BCDF ####[address] [address] Platelets (Bld) [#/Vol] 115 10*3/uL Low 150 - [address] [facility] Comment on above: Performed By: #### C BCDF ####[address] [address] RBC 4.22 x10E12/L Normal 4.00 - 5.[address] [facility] Comment on above: Performed By: #### C BCDF ####[address] [address] WBC (Bld) [#/Vol] 4.6 10*3/uL Normal 4.4 - 11.3 [facility] Comment on above: Performed By: #### C BCDF ####[address] [address] COMPREHENSIVE PANELon 2022 Albumin [Mass/Vol] 3.8 g/dL Normal 3.4 - 5.0 [facility] Comment on above: Performed By: #### C MP ####[address] [address] ALP [Catalytic activity/Vol] 69 U/L Normal 33 - [address] [facility] Comment on above: Performed By: #### C MP ####[address] [address] ALT [Catalytic activity/Vol] 13 U/L Normal 7 - [address] [facility] Comment on above: Result Comment: Marjan ents treated with Sulfasalazine may generate falsely decreased results for ALT. Performed By: #### C MP ####[address] [address] Anion gap [Moles/Vol] 13 mmol/L Normal 10 - 20 [facility] Comment on above: Performed By: #### C MP ####[place] [id number] AST [Catalytic activity/Vol] 21 U/L Normal 9 - [address] [facility] Comment on above: Performed By: #### C MP ####[address] [address] Bilirubin [Mass/Vol] 0.4 mg/dL Normal 0.0 - 1.2 [facility] Comment on above: Performed By: #### C MP ####[address] [address] Calcium [Mass/Vol] 9.6 mg/dL Normal 8.6 - 10.3 [facility] Comment on above: Performed By: #### C MP ####[address] [address] Chloride [Moles/Vol] 101 mmol/L Normal 98 - 107 [facility] Comment on above: Performed By: #### C MP ####[address] [address] Creatinine [Mass/Vol] 1.32 mg/dL High 0.50 - 1.05 [facility] Comment on above: Performed By: #### C MP ####[address] [address] GFR/1.73 sq M.predicted among non-blacks MDRD (S/P/Bld) [Vol rate/Area] 49 mL/min/{1.73_m2} Abnormal >[address] [facility] Comment on above: Result Comment: CALC ULATIONS OF ESTIMATED GFR ARE PERFORMED USING THE 2020 CKD-EPI STUDY REFIT EQUATION WITHOUT THE RACE VARIABLE FOR THE IDMS-TRACEABLE CREATININE METHODS.https://jasn.asnjournals.org/content/early/ N.9757816767 Performed By: #### C MP ####[address] [address] Glucose [Mass/Vol] 93 mg/dL Normal 74 - 99 [facility] Comment on above: Performed By: #### C MP ####[address] [address] HCO3 (Bld) [Moles/Vol] 24 mmol/L Normal 21 - [address] [facility] Comment on above: Performed By: #### C MP ####[address] [address] Potassium [Moles/Vol] 4.1 mmol/L Normal 3.5 - 5.3 [facility] Comment on above: Performed By: #### C MP ####[address] [address] Protein [Mass/Vol] 6.1 g/dL Low 6.4 - 8.2 [facility] Comment on above: Performed By: #### C MP ####[address] [address] Sodium [Moles/Vol] 134 mmol/L Low 136 - 145 [facility] Comment on above: Performed By: #### C MP ####[address] [address] Urea nitrogen [Mass/Vol] 24 mg/dL High 6 - [address] [facility] Comment on above: Performed By: #### C MP ####[address] [place] [address] CT C Spine without Contrasto n 01-21-2023 CT Cervical spine WO contrast Normal [facility] Work Phone: CT C-SPINE WO CONTRASTon CT C-SPINE WO CONTRAST Normal [facility] CT HEAD WO CONTRASTon 2022 CT HEAD WO CONTRAST Normal [facility] CT Head without Contraston 0 01-21-2023 CT Head limited WO contrast Normal [facility] Work Phone: CT L Spine without Contrasto n 01-21-2023 CT Lumbar spine limited WO contrast Normal [facility] Work Phone: CT L-SPINE WO CONTRASTon CT L-SPINE WO CONTRAST Normal [facility] Complete Blood Count + Diffe rentialon 01-21-2023 Basophils/100 WBC (Bld) 0.4 % 0.0 - 2.0 [facility] Work Phone: Erythrocyte distribution width (RBC) [Ratio] 12.5 % See Below [facility] Work Phone: Comment on above: Reference Range: 11. 5 - 14.5 Hematocrit (Bld) [Volume fraction] 38.1 % See Below [facility] Work Phone: Comment on above: Reference Range: 36. 0 - 46.0 Hemoglobin (Bld) [Mass/Vol] 12.6 g/dL See Below [facility] Work Phone: Comment on above: Reference Range: 12. 0 - 16.0 Lymphocytes/100 WBC (Bld) 31.1 % See Below [facility] Work Phone: Comment on above: Reference Range: 13. 0 - 44.0 MCHC (RBC) [Mass/Vol] 33.1 g/dL See Below [facility] Work Phone: Comment on above: Reference Range: 32. 0 - 36.0 MCV (RBC) [Entitic vol] 90 fL 80 - 100 [facility] Work Phone: Monocytes/100 WBC (Bld) 9.6 % 2.0 - 10.0 [facility] Work Phone: Neutrophils/100 WBC (Bld) 54.3 % See Below [facility] Work Phone: Comment on above: Reference Range: 40. 0 - 80.0 Platelets (Bld) [#/Vol] 115 10*3/uL below low threshold 150 - 450 [facility] Work Phone: RBC (Bld) [#/Vol] 4.22 {x10E12/L} See Below [facility] Work Phone: Comment on above: Reference Range: 4.0 0 - 5.20 WBC (Bld) [#/Vol] 4.6 10*3/uL 4.4 - 11.3 [facility] Work Phone: Complete Blood Count + Differential 0.02 {x10E9/L} See Below [facility] Work Phone: Comment on above: Reference Range: 0.0 0 - 0.10 Complete Blood Count + Differential 0.07 {x10E9/L} See Below [facility] Work Phone: Comment on above: Reference Range: 0.0 0 - 0.70 Complete Blood Count + Differential 0.44 {x10E9/L} See Below [facility] Work Phone: Comment on above: Reference Range: 0.1 0 - 1.00 Complete Blood Count + Differential 1.42 {x10E9/L} See Below [facility] Work Phone: Comment on above: Reference Range: 1.2 0 - 4.80 Complete Blood Count + Differential 2.48 {x10E9/L} See Below [facility] Work Phone: Comment on above: Reference Range: 1.2 0 - 7.70 Percent differential counts (%) should be interpreted in the context of the absolute cell counts (cells/L). Complete Blood Count + Differential 1.5 % 0.0 - 6.0 [facility] Work Phone: Complete Blood Count + Differential 3.1 % above high threshold 0.0 - 0.9 [facility] Work Phone: Comment on above: Immature Granulocyte Count (IG) includes promyelocytes, myelocytes and metamyelocytes but does not include bands. Percent differential counts (%) should be interpreted in the context of the absolute cell counts (cells/L). Laboratory - Chemistry and C hemistry - challengeon 01-21-2023 Albumin BCP dye [Mass/Vol] 3.8 g/dL 3.4 - 5.0 [facility] Work Phone: ALP [Catalytic activity/Vol] 69 U/L 33 - 110 [facility] Work Phone: ALT With P-5'-P [Catalytic activity/Vol] 13 U/L 7 - 45 [facility] Work Phone: Comment on above: Patients treated wit h Sulfasalazine may generate falsely decreased results for ALT. Anion gap [Moles/Vol] 13 mmol/L 10 - 20 [facility] Work Phone: AST With P-5'-P [Catalytic activity/Vol] 21 U/L 9 - 39 [facility] Work Phone: Bilirubin [Mass/Vol] 0.4 mg/dL 0.0 - 1.2 [facility] Work Phone: Calcium [Mass/Vol] 9.6 mg/dL 8.6 - 10.3 [facility] Work Phone: Chloride [Moles/Vol] 101 mmol/L 98 - 107 [facility] Work Phone: CO2 [Moles/Vol] 24 mmol/L 21 - 32 [facility] Work Phone: Creatinine [Mass/Vol] 1.32 mg/dL above high threshold See Below [facility] Work Phone: Comment on above: Reference Range: 0.5 0 - 1.05 Glucose [Mass/Vol] 93 mg/dL 74 - 99 [facility] Work Phone: Potassium [Moles/Vol] 4.1 mmol/L 3.5 - 5.3 [facility] Work Phone: Protein [Mass/Vol] 6.1 g/dL below low threshold 6.4 - 8.2 [facility] Work Phone: Sodium [Moles/Vol] 134 mmol/L below low threshold 136 - 145 [facility] Work Phone: Urea nitrogen [Mass/Vol] 24 mg/dL above high threshold 6 - 23 [facility] Work Phone: MAGNESIUMon 01-21-2023 Magnesium [Mass/Vol] 1.63 mg/dL Normal 1.60 - 2.40 [facility] Comment on above: Performed By: #### M G ####[address] [address] Magnesium, Serumon Magnesium [Mass/Vol] 1.63 mg/dL See Below [facility] Work Phone: Comment on above: Reference Range: 1.6 0 - 2.40 No Panel Informationon 01-21 49 {mL/min/1.73m2} Abnormal >90 [facility] Work Phone: Comment on above: CALCULATIONS OF FRIEDA MATED GFR ARE PERFORMED USING THE 2020 CKD-EPI STUDY REFIT EQUATION WITHOUT THE RACE VARIABLE FOR THE IDMS-TRACEABLE CREATININE METHODS.https://jasn.asnjournals.org/content/early/ N.8723062421 Provider Note - ED v3on 04-0 Provider Note - ED v3 Normal [facility] Triage - EDon 01-21-2023 Triage - ED Normal [facility] URINALYSISon 01-21-2023 Appearance (U) Canceled [facility] Comment on above: Order Comment: TEST URINALYSIS WAS CANCELLED, 01/21/2023 20:42 PATIENT DISCHARGED. Performed By: #### U A ####[address] [address] ASCORBIC ACID Canceled [facility] Comment on above: Order Comment: TEST URINALYSIS WAS CANCELLED, 01/21/2023 20:42 PATIENT DISCHARGED. Result Comment: Conc entrations > = 20 mg/dL of ascorbic acid can be expected to cause stronginterference in the reactions testing for glucose, nitrite and blood. It isrecommended to discontinue Vitamin C administration and retest in 10 hours. Performed By: #### U A ####[address] [address] Bilirubin Ql (U) Canceled [facility] Comment on above: Order Comment: TEST URINALYSIS WAS CANCELLED, 01/21/2023 20:42 PATIENT DISCHARGED. Performed By: #### U A ####[address] [address] Color (U) Canceled [facility] Comment on above: Order Comment: TEST URINALYSIS WAS CANCELLED, 01/21/2023 20:42 PATIENT DISCHARGED. Performed By: #### U A ####[address] [address] Glucose Ql (U) Canceled [facility] Comment on above: Order Comment: TEST URINALYSIS WAS CANCELLED, 01/21/2023 20:42 PATIENT DISCHARGED. Performed By: #### U A ####[address] [address] Hemoglobin Ql (U) Canceled [facility] Comment on above: Order Comment: TEST URINALYSIS WAS CANCELLED, 01/21/2023 20:42 PATIENT DISCHARGED. Performed By: #### U A ####[address] [address] Ketones Ql (U) Canceled [facility] Comment on above: Order Comment: TEST URINALYSIS WAS CANCELLED, 01/21/2023 20:42 PATIENT DISCHARGED. Performed By: #### U A ####[address] [address] Leukocyte esterase Test strip Ql (U) Canceled [facility] Comment on above: Order Comment: TEST URINALYSIS WAS CANCELLED, 01/21/2023 20:42 PATIENT DISCHARGED. Performed By: #### U A ####[address] [address] Nitrite Ql (U) Canceled [facility] Comment on above: Order Comment: TEST URINALYSIS WAS CANCELLED, 01/21/2023 20:42 PATIENT DISCHARGED. Performed By: #### U A ####[address] [address] pH Canceled [facility] Comment on above: Order Comment: TEST URINALYSIS WAS CANCELLED, 01/21/2023 20:42 PATIENT DISCHARGED. Performed By: #### U A ####[address] [address] Protein Ql (U) Canceled [facility] Comment on above: Order Comment: TEST URINALYSIS WAS CANCELLED, 01/21/2023 20:42 PATIENT DISCHARGED. Performed By: #### U A ####[address] [address] Specific gravity (U) [Rel density] Canceled [facility] Comment on above: Order Comment: TEST URINALYSIS WAS CANCELLED, 01/21/2023 20:42 PATIENT DISCHARGED. Performed By: #### U A ####[address] [address] UROBILINOGEN Canceled [facility] Comment on above: Order Comment: TEST URINALYSIS WAS CANCELLED, 01/21/2023 20:42 PATIENT DISCHARGED. Performed By: #### U A ####[address] [address] Established Visit (Orthopaed ic Surgery)on 01-19-2023 Established Visit (Orthopaedic Surgery) Diagnoses/Problems Assessed Pain of left lower extremity (729.5) (M79.605) Leg swelling (729.81) (M79.89) Knee pain (719.46) (M25.569) Orders Leg swelling, Pain of left lower extremity [facility] Venous Duplex Ultrasound for DVT; Status:Complete; [...] knee x-ray complete, duplex ultrasound ordered. The bung driver from the facility asked if this [...] ultrasound results. This note was generated using Crystal [employer] software. It may contain errors in wording, [...] states she is no longer being scheduled. [facility] arrange transportation. States PT recommended OT, not [...] [facility] KNEE 1 OR 2 VIEWSon 01-20-20 23 KNEE 1 OR 2 VIEWS Normal [facility] Radiologyon 01-19-2023 XR Knee 1 or 2 Views Normal -[facility] 300 Work Phone: VASC LAB Venous Duplex Ultra sound DVTon 01-19-2023 VASC LAB Venous Duplex Ultrasound DVT Normal [facility] VAS LAB Venous Duplex Ultra sound for DVTon 01-19-2023 VASC LAB Venous Duplex Ultrasound for DVT -[facility] 300 Work Phone: PT Progress Noteon 3 PT Progress Note No report was sent Normal [facility] PT Progress Note No report was sent Normal [facility] Therapy Communicationon 12-18 Therapy Communication Message REEMA PABLO no showed today . Patient NS/NC reassessment/treatment this date. Signatures Electronically signed by : Trice Tejada, PT; Jan 15 2023 2:17PM EST (Author) Normal [facility] Therapy Communication Message REEMA SHAH no showed today . Signatures Electronically signed by : Pippa Freeman ITEM PROCESSOR; Jan 15 2023 9:59AM EST (Author) Normal [facility] Clinical Event Note-ED Post Discharge Result Follow Up: Atteon 01-08-2023 Clinical Event Note-ED Post Discharge Result Follow Up: Atte Normal [facility] PT Progress Noteon PT Progress Note No report was sent [facility] Therapy Communicationon 12-17 Therapy Communication Message REEMA SHAH canceled today illness. Signatures Electronically signed by : Pippa Freeman PTA; Jan 08 2023 9:17AM EST (Author) Normal [facility] BASIC METABOLIC PANELon 12-17 Anion gap [Moles/Vol] 14 mmol/L Normal 10 - 20 [facility] Comment on above: Performed By: #### B MP ####[address] [address] Calcium [Mass/Vol] 9.0 mg/dL Normal 8.6 - 10.3 [facility] Comment on above: Performed By: #### B MP ####[address] [address] Chloride [Moles/Vol] 100 mmol/L Normal 98 - 107 [facility] Comment on above: Performed By: #### B MP ####[address] [address] Creatinine [Mass/Vol] 1.38 mg/dL High 0.50 - 1.05 [facility] Comment on above: Performed By: #### B MP ####[address] [address] GFR/1.73 sq M.predicted among non-blacks MDRD (S/P/Bld) [Vol rate/Area] 47 mL/min/{1.73_m2} Abnormal >[address] [facility] Comment on above: Result Comment: CALC ULATIONS OF ESTIMATED GFR ARE PERFORMED USING THE 2020 CKD-EPI STUDY REFIT EQUATION WITHOUT THE RACE VARIABLE FOR THE IDMS-TRACEABLE CREATININE METHODS.https://jasn.asnjournals.org/content/early/ N.4516475912 Performed By: #### B MP ####[place] [id number] Glucose [Mass/Vol] 103 mg/dL High 74 - 99 [facility] Comment on above: Performed By: #### B MP ####[place] [id number] HCO3 (Bld) [Moles/Vol] 26 mmol/L Normal 21 - [address] [facility] Comment on above: Performed By: #### B MP ####[place] [id number] Potassium [Moles/Vol] 4.3 mmol/L Normal 3.5 - 5.3 [facility] Comment on above: Result Comment: MILD HEMOLYSIS DETECTED. The result may be falsely elevated due tohemolysis or other interferents. Clinical correlation is recommended.Repeat testing may be considered. Performed By: #### B MP ####[place] [address] Sodium [Moles/Vol] 136 mmol/L Normal 136 - 145 [facility] Comment on above: Performed By: #### B MP ####[place] [id number] Urea nitrogen [Mass/Vol] 25 mg/dL High 6 - [address] [facility] Comment on above: Performed By: #### B MP ####[place] [id number] CBC AND DIFFERENTIALon 01-07 % AUTOMATED IMMATURE GRAN 0.6 % Normal 0.0 - 0.[address] [facility] Comment on above: Result Comment: Suze ture Granulocyte Count (IG) includes promyelocytes, myelocytes and metamyelocytes but does not include bands. Percent differential counts (%) should be interpreted in the context of the absolute cell counts (cells/L). Performed By: #### C BCDF ####[place] [id number] Basophils (Bld) [#/Vol] 0.01 10*3/uL Normal 0.00 - 0.[address] [facility] Comment on above: Performed By: #### C BCDF ####[place] [id number] Basophils/100 WBC (Bld) 0.1 % Normal 0.0 - 2.[address] [facility] Comment on above: Performed By: #### C BCDF ####[address] [address] Erythrocyte distribution width (RBC) [Ratio] 12.4 % Normal 11.5 - 14.[address] [facility] Comment on above: Performed By: #### C BCDF ####[address] [address] Hematocrit (Bld) [Volume fraction] 39.9 % Normal 36.0 - 46.[address] [facility] Comment on above: Performed By: #### C BCDF ####[address] [address] Hemoglobin (Bld) [Mass/Vol] 13.5 g/dL Normal 12.0 - 16.[address] [facility] Comment on above: Performed By: #### C BCDF ####[address] [address] Lymphocytes (Bld) [#/Vol] 0.85 10*3/uL Low 1.20 - 4.[address] [facility] Comment on above: Performed By: #### C BCDF ####[address] [address] Lymphocytes/100 WBC (Bld) 11.7 % Normal 13.0 - 44.[address] [facility] Comment on above: Performed By: #### C BCDF ####[address] [address] MCHC (RBC) [Mass/Vol] 33.8 g/dL Normal 32.0 - 36.0 [facility] Comment on above: Performed By: #### C BCDF ####[address] [address] MCV (RBC) [Entitic vol] 89 fL Normal 80 - [address] [facility] Comment on above: Performed By: #### C BCDF ####[address] [address] Monocytes (Bld) [#/Vol] 0.90 10*3/uL Normal 0.10 - 1.[address] [facility] Comment on above: Performed By: #### C BCDF ####[address] [address] Monocytes/100 WBC (Bld) 12.4 % Normal 2.0 - 10.[address] [facility] Comment on above: Performed By: #### C BCDF ####[address] [address] Neutrophils (Bld) [#/Vol] 5.44 10*3/uL Normal 1.20 - 7.[address] [facility] Comment on above: Result Comment: Perc ent differential counts (%) should be interpreted in the context of the absolute cell counts (cells/L). Performed By: #### C BCDF ####[address] [address] Neutrophils/100 WBC (Bld) 75.2 % Normal 40.0 - 80.[address] [facility] Comment on above: Performed By: #### C BCDF ####[address] [address] Platelets (Bld) [#/Vol] 114 10*3/uL Low 150 - [address] [facility] Comment on above: Performed By: #### C BCDF ####[address] [address] RBC 4.47 x10E12/L Normal 4.00 - 5.[address] [facility] Comment on above: Performed By: #### C BCDF ####[address] [address] WBC (Bld) [#/Vol] 7.2 10*3/uL Normal 4.4 - 11.3 [facility] Comment on above: Performed By: #### C BCDF ####[address] [address] % AUTOMATED IMMATURE GRAN 3.2 % High 0.0 - 0.[address] [facility] Comment on above: Result Comment: Suze ture Granulocyte Count (IG) includes promyelocytes, myelocytes and metamyelocytes but does not include bands. Percent differential counts (%) should be interpreted in the context of the absolute cell counts (cells/L). Performed By: #### C BCDF ####[address] [address] Basophils (Bld) [#/Vol] 0.01 10*3/uL Normal 0.00 - 0.[address] [facility] Comment on above: Performed By: #### C BCDF ####[address] [address] Basophils/100 WBC (Bld) 0.2 % Normal 0.0 - 2.[address] [facility] Comment on above: Performed By: #### C BCDF ####[address] [address] Eosinophils (Bld) [#/Vol] 0.09 10*3/uL Normal 0.00 - 0.[address] [facility] Comment on above: Performed By: #### C BCDF ####[address] [address] Eosinophils/100 WBC (Bld) 1.7 % Normal 0.0 - 6.[address] [facility] Comment on above: Performed By: #### C BCDF ####[address] [address] Erythrocyte distribution width (RBC) [Ratio] 12.2 % Normal 11.5 - 14.[address] [facility] Comment on above: Performed By: #### C BCDF ####[address] [address] Hematocrit (Bld) [Volume fraction] 40.5 % Normal 36.0 - 46.[address] [facility] Comment on above: Performed By: #### C BCDF ####[address] [address] Hemoglobin (Bld) [Mass/Vol] 13.4 g/dL Normal 12.0 - 16.[address] [facility] Comment on above: Performed By: #### C BCDF ####[address] [address] Lymphocytes (Bld) [#/Vol] 0.45 10*3/uL Low 1.20 - 4.[address] [facility] Comment on above: Performed By: #### C BCDF ####[address] [address] Lymphocytes/100 WBC (Bld) 8.5 % Normal 13.0 - 44.[address] [facility] Comment on above: Performed By: #### C BCDF ####[address] [address] MCHC (RBC) [Mass/Vol] 33.1 g/dL Normal 32.0 - 36.0 [facility] Comment on above: Performed By: #### C BCDF ####[address] [address] MCV (RBC) [Entitic vol] 90 fL Normal 80 - [address] [facility] Comment on above: Performed By: #### C BCDF ####[address] [address] Monocytes (Bld) [#/Vol] 0.37 10*3/uL Normal 0.10 - 1.[address] [facility] Comment on above: Performed By: #### C BCDF ####[address] [address] Monocytes/100 WBC (Bld) 7.0 % Normal 2.0 - 10.[address] [facility] Comment on above: Performed By: #### C BCDF ####[address] [address] Neutrophils (Bld) [#/Vol] 4.19 10*3/uL Normal 1.20 - 7.[address] [facility] Comment on above: Result Comment: Perc ent differential counts (%) should be interpreted in the context of the absolute cell counts (cells/L). Performed By: #### C BCDF ####[address] [address] Neutrophils/100 WBC (Bld) 79.4 % Normal 40.0 - 80.[address] [facility] Comment on above: Performed By: #### C BCDF ####[address] [address] Platelets (Bld) [#/Vol] 92 10*3/uL Low 150 - [address] [facility] Comment on above: Performed By: #### C BCDF ####[address] [address] RBC 4.48 x10E12/L Normal 4.00 - 5.[address] [facility] Comment on above: Performed By: #### C BCDF ####[place] [id number] WBC (Bld) [#/Vol] 5.3 10*3/uL Normal 4.4 - 11.3 [facility] Comment on above: Performed By: #### C BCDF ####[place] [id number] COMPREHENSIVE PANELon 2022 Albumin [Mass/Vol] 4.2 g/dL Normal 3.4 - 5.0 [facility] Comment on above: Performed By: #### C MP ####[place] [address] ALP [Catalytic activity/Vol] 61 U/L Normal 33 - [address] [facility] Comment on above: Performed By: #### C MP ####[address] [address] ALT [Catalytic activity/Vol] 16 U/L Normal 7 - [address] [facility] Comment on above: Result Comment: Marjan ents treated with Sulfasalazine may generate falsely decreased results for ALT. Performed By: #### C MP ####[address] [address] Anion gap [Moles/Vol] 18 mmol/L Normal 10 - 20 [facility] Comment on above: Performed By: #### C MP ####[address] [address] AST [Catalytic activity/Vol] 25 U/L Normal 9 - [address] [facility] Comment on above: Performed By: #### C MP ####[address] [address] Bilirubin [Mass/Vol] 0.5 mg/dL Normal 0.0 - 1.2 [facility] Comment on above: Performed By: #### C MP ####[address] [address] Calcium [Mass/Vol] 8.7 mg/dL Normal 8.6 - 10.3 [facility] Comment on above: Performed By: #### C MP ####[address] [address] Chloride [Moles/Vol] 98 mmol/L Normal 98 - 107 [facility] Comment on above: Performed By: #### C MP ####[address] [address] Creatinine [Mass/Vol] 1.37 mg/dL High 0.50 - 1.05 [facility] Comment on above: Performed By: #### C MP ####[address] [address] GFR/1.73 sq M.predicted among non-blacks MDRD (S/P/Bld) [Vol rate/Area] 47 mL/min/{1.73_m2} Abnormal >[address] [facility] Comment on above: Result Comment: CALC ULATIONS OF ESTIMATED GFR ARE PERFORMED USING THE 2020 CKD-EPI STUDY REFIT EQUATION WITHOUT THE RACE VARIABLE FOR THE IDMS-TRACEABLE CREATININE METHODS.https://jasn.asnjournals.org/content/early/ N.2719891444 Performed By: #### C MP ####[address] [address] Glucose [Mass/Vol] 100 mg/dL High 74 - 99 [facility] Comment on above: Performed By: #### C MP ####[address] [address] HCO3 (Bld) [Moles/Vol] 23 mmol/L Normal 21 - [address] [facility] Comment on above: Performed By: #### C MP ####[address] [address] Potassium [Moles/Vol] 3.7 mmol/L Normal 3.5 - 5.3 [facility] Comment on above: Performed By: #### C MP ####[address] [address] Protein [Mass/Vol] 6.9 g/dL Normal 6.4 - 8.2 [facility] Comment on above: Performed By: #### C MP ####[address] [address] Sodium [Moles/Vol] 135 mmol/L Low 136 - 145 [facility] Comment on above: Performed By: #### C MP ####[place] [id number] Urea nitrogen [Mass/Vol] 21 mg/dL Normal 6 - [address] [facility] Comment on above: Performed By: #### C MP ####[place] [address] CORONAVIRUS 2019 BY PCRon SARS-CoV-2 (COVID-19) RNA CHIARA+probe Ql (Unsp spec) Detected Abnormal Not Detected [facility] Comment on above: Result Comment: .Thi s test has received FDA Emergency Use Authorization (EUA) and has beenverified by [facility]. This test is onlyauthorized for the duration of time that circumstances exist to justify theauthorization of the emergency use of in vitro diagnostic tests for thedetection of SARS-CoV-2 virus and/or diagnosis of COVID-19 infection undersection 564(b)(1) of the Act, 21 U.S.C. 360bbb-3(b)(1), unless theauthorization is terminated or revoked sooner.[facility] is certified under CLIA-88 asqualified to perform high complexity testing. Testing is performed in [facility] laboratory located at [address] [place] [address].SARS-CoV-2/Flu/RSV Multiplex Test:Fact sheet for providers: https://www.fda.gov/media/507991/downloadFact sheet for patients: https://www.fda.gov/media/992909/download Performed By: #### C OV19 ####[place] [id number] Lab Specimen Source Nasal, Nasopharyngeal Normal [facility] Comment on above: Performed By: #### C OV19 ####[facility] [place] [address] Complete Blood Count + Diffe laureen 01-07-2023 Basophils/100 WBC (Bld) 0.1 % 0.0 - 2.0 [facility] Work Phone: Erythrocyte distribution width (RBC) [Ratio] 12.4 % See Below [facility] [place] Work Phone: Comment on above: Reference Range: 11. 5 - 14.5 Hematocrit (Bld) [Volume fraction] 39.9 % See Below [facility] [place] Work Phone: Comment on above: Reference Range: 36. 0 - 46.0 Hemoglobin (Bld) [Mass/Vol] 13.5 g/dL See Below [facility] [place] Work Phone: Comment on above: Reference Range: 12. 0 - 16.0 Lymphocytes/100 WBC (Bld) 11.7 % See Below [facility] [place] Work Phone: Comment on above: Reference Range: 13. 0 - 44.0 MCHC (RBC) [Mass/Vol] 33.8 g/dL See Below [facility] [place] Work Phone: Comment on above: Reference Range: 32. 0 - 36.0 MCV (RBC) [Entitic vol] 89 fL 80 - 100 [facility] [place] Work Phone: Monocytes/100 WBC (Bld) 12.4 % 2.0 - 10.0 [facility] [place] Work Phone: Neutrophils/100 WBC (Bld) 75.2 % See Below [facility] [place] Work Phone: Comment on above: Reference Range: 40. 0 - 80.0 Platelets (Bld) [#/Vol] 114 10*3/uL below low threshold 150 - 450 [facility] [place] Work Phone: RBC (Bld) [#/Vol] 4.47 {x10E12/L} See Below [facility] bean [place] Work Phone: Comment on above: Reference Range: 4.0 0 - 5.20 WBC (Bld) [#/Vol] 7.2 10*3/uL 4.4 - 11.3 [facility] bean [place] Work Phone: Complete Blood Count + Differential 0.01 {x10E9/L} See Below [facility] [place] Work Phone: Comment on above: Reference Range: 0.0 0 - 0.10 Complete Blood Count + Differential 0.90 {x10E9/L} See Below [facility] Work Phone: Comment on above: Reference Range: 0.1 0 - 1.00 Complete Blood Count + Differential 0.85 {x10E9/L} below low threshold See Below [facility] Work Phone: Comment on above: Reference Range: 1.2 0 - 4.80 Complete Blood Count + Differential 5.44 {x10E9/L} See Below [facility] Work Phone: Comment on above: Reference Range: 1.2 0 - 7.70 Percent differential counts (%) should be interpreted in the context of the absolute cell counts (cells/L). Complete Blood Count + Differential 0.6 % 0.0 - 0.9 [facility] [place] Work Phone: Comment on above: Immature Granulocyte Count (IG) includes promyelocytes, myelocytes and metamyelocytes but does not include bands. Percent differential counts (%) should be interpreted in the context of the absolute cell counts (cells/L). Basophils/100 WBC (Bld) 0.2 % 0.0 - 2.0 [facility] Work Phone: Erythrocyte distribution width (RBC) [Ratio] 12.2 % See Below [facility] Work Phone: Comment on above: Reference Range: 11. 5 - 14.5 Hematocrit (Bld) [Volume fraction] 40.5 % See Below [facility] Work Phone: Comment on above: Reference Range: 36. 0 - 46.0 Hemoglobin (Bld) [Mass/Vol] 13.4 g/dL See Below [facility] Work Phone: Comment on above: Reference Range: 12. 0 - 16.0 Lymphocytes/100 WBC (Bld) 8.5 % See Below [facility] Work Phone: Comment on above: Reference Range: 13. 0 - 44.0 MCHC (RBC) [Mass/Vol] 33.1 g/dL See Below [facility] Work Phone: Comment on above: Reference Range: 32. 0 - 36.0 MCV (RBC) [Entitic vol] 90 fL 80 - 100 [facility] Work Phone: Monocytes/100 WBC (Bld) 7.0 % 2.0 - 10.0 [facility] Work Phone: Neutrophils/100 WBC (Bld) 79.4 % See Below [facility] Work Phone: Comment on above: Reference Range: 40. 0 - 80.0 Platelets (Bld) [#/Vol] 92 10*3/uL below low threshold 150 - 450 [facility] Work Phone: RBC (Bld) [#/Vol] 4.48 {x10E12/L} See Below [facility] [place] Work Phone: Comment on above: Reference Range: 4.0 0 - 5.20 WBC (Bld) [#/Vol] 5.3 10*3/uL 4.4 - 11.3 [facility] [place] Work Phone: Complete Blood Count + Differential 0.01 {x10E9/L} See Below [facility] [place] Work Phone: Comment on above: Reference Range: 0.0 0 - 0.10 Complete Blood Count + Differential 0.09 {x10E9/L} See Below [facility] Work Phone: Comment on above: Reference Range: 0.0 0 - 0.70 Complete Blood Count + Differential 0.37 {x10E9/L} See Below [facility] [place] Work Phone: Comment on above: Reference Range: 0.1 0 - 1.00 Complete Blood Count + Differential 0.45 {x10E9/L} below low threshold See Below [facility] [place] Work Phone: Comment on above: Reference Range: 1.2 0 - 4.80 Complete Blood Count + Differential 4.19 {x10E9/L} See Below [facility] Work Phone: Comment on above: Reference Range: 1.2 0 - 7.70 Percent differential counts (%) should be interpreted in the context of the absolute cell counts (cells/L). Complete Blood Count + Differential 1.7 % 0.0 - 6.0 [facility] [place] Work Phone: Complete Blood Count + Differential 3.2 % above high threshold 0.0 - 0.9 [facility] Work Phone: Comment on above: Immature Granulocyte Count (IG) includes promyelocytes, myelocytes and metamyelocytes but does not include bands. Percent differential counts (%) should be interpreted in the context of the absolute cell counts (cells/L). Coronavirus 2019 RNA by PCR, Symptomaticon 01-07-2023 Coronavirus 2019 RNA by PCR, Symptomatic Detected Abnormal See Below [facility] Work Phone: Comment on above: SOURCE: Nasal, Nasop haryngealReference Range: Not Detected.This test has received FDA Emergency Use Authorization (EUA) and has been verified by [facility]. This test is only authorized for the [...] complexity testing. Testing is performed in the [facility] laboratory located at [address] [place] [address].SARS-CoV-2/Flu/RSV Multiplex Test: Fact sheet for providers: https://www.fda.gov/media/186512/downloadFact sheet for patients: https://www.fda.gov/media/000269/download Covid 19 Resultson 3 SARS-CoV-2 (COVID-19) RNA CHIARA+probe Ql (Unsp spec) Normal [facility] HCG,URINEon 01-07-2023 Beta HCG ( test) Ql (U) Negative Normal Negative [facility] Comment on above: Performed By: #### H CGU ####[place] [address] HEPATIC FUNCTION PANELon Albumin [Mass/Vol] 4.2 g/dL Normal 3.4 - 5.0 [facility] Comment on above: Performed By: #### H EPFP ####[place] [address] ALP [Catalytic activity/Vol] 74 U/L Normal 33 - [address] [facility] Comment on above: Performed By: #### H EPFP ####[address] [address] ALT [Catalytic activity/Vol] 14 U/L Normal 7 - [address] [facility] Comment on above: Result Comment: Marjan ents treated with Sulfasalazine may generate falsely decreased results for ALT. Performed By: #### H EPFP ####[address] [address] AST [Catalytic activity/Vol] 20 U/L Normal 9 - [address] [facility] Comment on above: Result Comment: MILD HEMOLYSIS DETECTED. The result may be falsely elevated due tohemolysis or other interferents. Clinical correlation is recommended.Repeat testing may be considered. Performed By: #### H EPFP ####[address] [address] Bilirubin [Mass/Vol] 0.3 mg/dL Normal 0.0 - 1.2 [facility] Comment on above: Performed By: #### H EPFP ####[address] [address] Bilirubin.indirect [Mass/Vol] 0.1 mg/dL Normal 0.0 - 0.[address] [facility] Comment on above: Result Comment: MILD HEMOLYSIS DETECTED. The result may be falsely decreased due tohemolysis or other interferents. Clinical correlation is recommended.Repeat testing may be considered. Performed By: #### H EPFP ####[address] [address] Protein [Mass/Vol] 7.0 g/dL Normal 6.4 - 8.2 [facility] Comment on above: Performed By: #### H EPFP ####[address] [address] Hepatic Function Panelon Albumin BCP dye [Mass/Vol] 4.2 g/dL 3.4 - 5.0 [facility] Work Phone: ALP [Catalytic activity/Vol] 74 U/L 33 - 110 [facility] Work Phone: ALT With P-5'-P [Catalytic activity/Vol] 14 U/L 7 - 45 [facility] Work Phone: Comment on above: Patients treated wit h Sulfasalazine may generate falsely decreased results for ALT. AST With P-5'-P [Catalytic activity/Vol] 20 U/L 9 - 39 [facility] Work Phone: Comment on above: MILD HEMOLYSIS DETEC KANDACE. The result may be falsely elevated due tohemolysis or other interferents. Clinical correlation is recommended.Repeat testing may be considered. Bilirubin [Mass/Vol] 0.3 mg/dL 0.0 - 1.2 [facility] Work Phone: Bilirubin.direct [Mass/Vol] 0.1 mg/dL 0.0 - 0.3 [facility] Work Phone: Comment on above: MILD HEMOLYSIS DETEC KANDACE. The result may be falsely decreased due tohemolysis or other interferents. Clinical correlation is recommended.Repeat testing may be considered. Protein [Mass/Vol] 7.0 g/dL 6.4 - 8.2 [facility] Work Phone: LIPASEon 01-07-2023 Lipase [Catalytic activity/Vol] 64 U/L Normal 9 - [address] [facility] Comment on above: Result Comment: Nathalie puncture immediately after or during the administration of Metamizole may lead to falsely low results. Testing should be performed immediately prior to Metamizole dosing. B-zeodxt-t-benzoquinone imine (metabolite of Acetaminophen) will generate erroneously low results in samples for patients that have taken toxic doses of acetaminophen. Performed By: #### L IPAS ####[place] [address] Laboratory - Chemistry and C hemistry - challengeon 01-07-2023 Albumin BCP dye [Mass/Vol] 4.2 g/dL 3.4 - 5.0 [facility] Work Phone: ALP [Catalytic activity/Vol] 61 U/L 33 - 110 [facility] Work Phone: ALT With P-5'-P [Catalytic activity/Vol] 16 U/L 7 - 45 [facility] Work Phone: Comment on above: Patients treated wit h Sulfasalazine may generate falsely decreased results for ALT. Anion gap [Moles/Vol] 18 mmol/L 10 - 20 [facility] Work Phone: AST With P-5'-P [Catalytic activity/Vol] 25 U/L 9 - 39 [facility] Work Phone: Bilirubin [Mass/Vol] 0.5 mg/dL 0.0 - 1.2 [facility] [place] Work Phone: Calcium [Mass/Vol] 8.7 mg/dL 8.6 - 10.3 [facility] [place] Work Phone: Chloride [Moles/Vol] 98 mmol/L 98 - 107 [facility] Work Phone: CO2 [Moles/Vol] 23 mmol/L 21 - 32 [facility] Work Phone: Creatinine [Mass/Vol] 1.37 mg/dL above high threshold See Below [facility] Work Phone: Comment on above: Reference Range: 0.5 0 - 1.05 Glucose [Mass/Vol] 100 mg/dL above high threshold 74 - 99 [facility] Work Phone: Potassium [Moles/Vol] 3.7 mmol/L 3.5 - 5.3 [facility] Work Phone: Protein [Mass/Vol] 6.9 g/dL 6.4 - 8.2 [facility] [place] Work Phone: Sodium [Moles/Vol] 135 mmol/L below low threshold 136 - 145 [facility] [place] Work Phone: Urea nitrogen [Mass/Vol] 21 mg/dL 6 - 23 [facility] [place] Work Phone: Anion gap [Moles/Vol] 14 mmol/L 10 - 20 [facility] [place] Work Phone: Calcium [Mass/Vol] 9.0 mg/dL 8.6 - 10.3 [facility] [place] Work Phone: Chloride [Moles/Vol] 100 mmol/L 98 - 107 [facility] [place] Work Phone: CO2 [Moles/Vol] 26 mmol/L 21 - 32 [facility] [place] Work Phone: Creatinine [Mass/Vol] 1.38 mg/dL above high threshold See Below [facility] [place] Work Phone: Comment on above: Reference Range: 0.5 0 - 1.05 Glucose [Mass/Vol] 103 mg/dL above high threshold 74 - 99 [facility] [place] Work Phone: Potassium [Moles/Vol] 4.3 mmol/L 3.5 - 5.3 [facility] Work Phone: Comment on above: MILD HEMOLYSIS DETEC KANDACE. The result may be falsely elevated due tohemolysis or other interferents. Clinical correlation is recommended.Repeat testing may be considered. Sodium [Moles/Vol] 136 mmol/L 136 - 145 [facility] [place] Work Phone: Urea nitrogen [Mass/Vol] 25 mg/dL above high threshold 6 - 23 [facility] Work Phone: Lipase, Serumon 01-07-2023 Lipase [Catalytic activity/Vol] 64 U/L 9 - 82 [facility] Work Phone: Comment on above: Venipuncture immedia tely after or during the administration of Metamizole may lead to falsely low results. Testing should be performed immediately prior to Metamizole dosing. G-xpjgge-l-benzoquinone imine (metabolite of Acetaminophen) will generate erroneously low results in samples for patients that have taken toxic doses of acetaminophen. No Panel Informationon 01-07 47 {mL/min/1.73m2} Abnormal >90 [facility] Work Phone: Comment on above: CALCULATIONS OF FRIEDA MATED GFR ARE PERFORMED USING THE 2020 CKD-EPI STUDY REFIT EQUATION WITHOUT THE RACE VARIABLE FOR THE IDMS-TRACEABLE CREATININE METHODS.https://jasn.asnjournals.org/content/early/ N.1545304922 47 {mL/min/1.73m2} Abnormal >90 [facility] Work Phone: Comment on above: CALCULATIONS OF FRIEDA MATED GFR ARE PERFORMED USING THE 2020 CKD-EPI STUDY REFIT EQUATION WITHOUT THE RACE VARIABLE FOR THE IDMS-TRACEABLE CREATININE METHODS.https://jasn.asnjournals.org/content// N.7429550449 Provider Note - ED v3on 12-17 Provider Note - ED v3 Normal [facility] Provider Note - ED v3 Normal [facility] Risk Screen - Adult Emergenc yon 01-07-2023 Risk Screen - Adult Emergency Normal [facility] Risk Screen - Adult Emergency Normal [facility] Triage - EDon 01-07-2023 Triage - ED Normal [facility] Triage - ED Normal [facility] UA MICROSCOPICon 01-07-2023 AMORPHOUS CRYSTAL 1+ /HPF Normal [facility] Comment on above: Performed By: #### U AMI ####[place] [address] BACTERIA 4+ /HPF Abnormal [facility] Comment on above: Performed By: #### U AMIC ####[place] [address] Mucus Ql (Urine sed) 1+ /LPF Normal [facility] Comment on above: Performed By: #### U AMIC ####[place] [address] RBC 24 /HPF Abnormal 0-[address] [facility] Comment on above: Performed By: #### U AMIC ####[place] [address] SQUAMOUS EPITH. CELLS 2 /HPF Normal [facility] Comment on above: Performed By: #### U AMIC ####[place] [address] TRANSITIONAL EPITH.CELLS 1 /HPF Normal [facility] Comment on above: Performed By: #### U AMIC ####[place] [address] WBC 18 /HPF Abnormal 0-[address] [facility] Comment on above: Performed By: #### U AMIC ####[place] [address] URINALYSISon 01-07-2023 Appearance (U) HAZY Normal CLEAR [facility] Comment on above: Performed By: #### U A ####[place] [address] Bilirubin Ql (U) Negative Normal NEGATIVE [facility] Comment on above: Performed By: #### U A ####[place] [address] Color (U) Yellow Normal STRAW,YELLOW [facility] Comment on above: Performed By: #### U A ####[place] [address] Glucose Ql (U) Negative Normal NEGATIVE [facility] Comment on above: Performed By: #### U A ####[place] [address] Hemoglobin Ql (U) MODERATE(2+) Abnormal NEGATIVE [facility] Comment on above: Performed By: #### U A ####[address] [address] Ketones Ql (U) Negative Normal NEGATIVE [facility] Comment on above: Performed By: #### U A ####[address] [address] Leukocyte esterase Test strip Ql (U) MODERATE(2+) Abnormal NEGATIVE [facility] Comment on above: Performed By: #### U A ####[address] [address] Nitrite Ql (U) Negative Normal NEGATIVE [facility] Comment on above: Performed By: #### U A ####[address] [address] pH (U) 7.0 [pH] Normal 5.0 - 8.[address] [facility] Comment on above: Performed By: #### U A ####[place] [id number] Protein Ql (U) 100(2+) Abnormal NEGATIVE [facility] Comment on above: Performed By: #### U A ####[place] [id number] Specific gravity (U) [Rel density] 1.016 Normal 1.005 - 1.[address] [facility] Comment on above: Performed By: #### U A ####[address] [address] Urobilinogen (U) [Mass/Vol] mg/dL Normal 0.0 - 1.[address] [facility] Comment on above: Performed By: #### U A ####[address] [address] Urinalysison 01-07-2023 Color (U) Yellow See Below [facility] Work Phone: Comment on above: Reference Range: STR AW,YELLOW Glucose Ql (U) Negative NEGATIVE [facility] Work Phone: Ketones Ql (U) Negative NEGATIVE [facility] Work Phone: Leukocyte esterase Test strip Ql (U) MODERATE(2+) Abnormal NEGATIVE [facility] Work Phone: pH (U) 7.0 [pH] 5.0 - 8.0 [facility] Work Phone: Protein (U) [Mass/Vol] 100(2+) Abnormal NEGATIVE [facility] Work Phone: RBC (U) [#/Vol] MODERATE(2+) Abnormal NEGATIVE [facility] Work Phone: Specific gravity (U) [Rel density] 1.016 1 See Below [facility] Work Phone: Comment on above: Reference Range: 1.0 05 - 1.035 Urinalysis Negative NEGATIVE [facility] Work Phone: Urinalysis <2.0 0.0 - 1.9 [facility] Work Phone: Urinalysis HAZY CLEAR [facility] Work Phone: Urinalysis, Microscopicon Urinalysis, Microscopic 1+ [facility] Work Phone: Urinalysis, Microscopic 4+ Abnormal [facility] Work Phone: Urinalysis, Microscopic 1 {/HPF} [facility] Work Phone: Urinalysis, Microscopic 2 {/HPF} [facility] Work Phone: Urinalysis, Microscopic 24 {/HPF} Abnormal 0-5 [facility] Work Phone: Urinalysis, Microscopic 18 {/HPF} Abnormal 0-5 [facility] Work Phone: Urine Teston 01-07 HCG ( test) Ql (U) Negative Negative [facility] Work Phone: PT Progress Noteon [...] code time is 39 minutes. Aquatic Therapy (73218): timed minutes 39, units 3 . Patient [...] Signatures Electronically signed by : Pippa Freeman, ITEM PROCESSOR; Jan 04 2023 6:08PM EST (Author) Electronically signed by : Trice Tejada, PT; Jan 07 2023 6:28PM EST Normal [facility] Provider Note - ED v3on - Provider Note - ED v3 Normal [facility] Risk Screen - Adult Emergenc yon 01-01-2023 Risk Screen - Adult Emergency Normal [facility] Triage - EDon 01-01-2023 Triage - ED Normal [facility] PT Progress Noteon 3 PT Progress [...] code time is 39 minutes. Aquatic Therapy (95373): timed minutes 39, units 3 . Patient [...] Signatures Electronically signed by : Pippa Freeman ITEM PROCESSOR; Dec 30 2022 10:11AM EST (Author) Electronically signed by : Trice Tejada PT; Jan 07 2023 10:11AM EST Normal [facility] PT Progress Noteon 3 PT Progress Note [...] code time is 39 minutes. Aquatic Therapy (43729): timed minutes 39, units 3 . Patient [...] Signatures Electronically signed by : Pippa Freeman ITEM PROCESSOR; Dec 28 2022 3:30PM EST (Author) Electronically signed by : Trice Tejada, PT; Dec 29 2022 10:55AM EST (Author) Normal [facility] PT Progress Noteon PT Progress Note No report was sent Normal [facility] Therapy Communicationon 12-16 Therapy Communication Message REEMA SHAH no showed today no show. Signatures Electronically signed by : Pippa Freeman PTA; Dec 25 2022 10:13AM EST (Author) Normal [facility] Established Visit (Orthopaed ic Surgery)on 12-23-2022 Established [...] of care. This note was generated using Crystal Clear Vision software. It may contain errors in wording, [...] obesity (278. (more content not included)... Normal [facility] No Panel Informationon 12-23 Please click on the link to view the study images Normal [facility] 300 Work Phone: [facility] Work Phone: Office Visit (Cardiology)on 12-23-2022 [...] discontinued her HCTZ, and ordered for the [facility] to begin checking daily BPs. Today, she [...] 12-23-2022 SPINE, LUMBOSACRAL MIN [address] [facility] Tobacco Screening.on 023 Fall risk assessment b) One or more fall s in the last year [facility] 300 Work Phone: Tobacco use status [facility] b) No [facility] 300 Work Phone: Tobacco use status [facility] b) No [facility] 300 [...] you for this referral and please call [phone] with any questions or concerns. Clinical Presentation: Stable and/or uncomplicated characteristics. Level of Complexity: low Problem List: activity limitations, ADLs/IADLs/self care skills, decreased knowledge of HEP, flexibility, gait/locomotion, pain, participation restrictions, range of motion/joint mobility and strength. Reason For Visit Initial Evaluation . Falls/ gait and mobility; knee pain. Referred by: Reanna Kemp APRN-CASE COORDINATOR Adult Risk Screening There are no spiritual/cultural [...] Status: Hold For - Scheduling Requested for: 15Dec2022 Ordered;For: Health Maintenance; Ordered By: Jeanie Ayala Performed: Due: 15Mar2023 Patient Discussion/Summary SCREENING COLONOSCOPY F/U 3 MO Provider Impressions C/O GETTEING SHAKEY AND CAN NOT WALK INTHE AFTER NOON DUE TO SHAKING WILL GIVE 1 MG ATIVAN PRN HAS DIOMEDES WITH NEPHRO ON 12/23 CAN NOT GIVE URINE , WILL DO AT HOME , ORDER WRITTEN SHEET HANGER REFERRAL OARRS HAS BEEN REVIEWED AND IS [...] DYSURIA NO FREQUENCY Scores and Scales PHQ-9 [id number] 11:48AM PHQ-9 #1. Little interest or pleasure [...] Abdominal pain, (more content not included)... Normal [facility] Tobacco Screening.on 023 Fall risk assessment a) No falls within the last year [facility] [place] Work Phone: Tobacco use status CP b) No [facility] Work Phone: ALCOHOLon 12-07-2022 Ethanol [Mass/Vol] mg/dL Normal [facility] Comment on above: Result Comment: FOR MEDICAL USE ONLY..REF VALUES <10 Performed By: #### A LC ####[address] [address] Alcohol, Serumon 12-07-2022 Ethanol [Mass/Vol] mg/dL [facility] [place] Work Phone: Comment on above: FOR MEDICAL USE ONLY . .REF VALUES <10 BASIC METABOLIC PANELon 11-19 Anion gap [Moles/Vol] 11 mmol/L Normal 10 - 20 [facility] Comment on above: Performed By: #### B MP ####[address] [address] Calcium [Mass/Vol] 8.3 mg/dL Low 8.6 - 10.3 [facility] Comment on above: Performed By: #### B MP ####[address] [address] Chloride [Moles/Vol] 104 mmol/L Normal 98 - 107 [facility] Comment on above: Performed By: #### B MP ####[address] [address] Creatinine [Mass/Vol] 1.43 mg/dL High 0.50 - 1.05 [facility] Comment on above: Performed By: #### B MP ####[address] [address] GFR/1.73 sq M.predicted among non-blacks MDRD (S/P/Bld) [Vol rate/Area] 45 mL/min/{1.73_m2} Abnormal >[address] [facility] Comment on above: Result Comment: CALC ULATIONS OF ESTIMATED GFR ARE PERFORMED USING THE 2020 CKD-EPI STUDY REFIT EQUATION WITHOUT THE RACE VARIABLE FOR THE IDMS-TRACEABLE CREATININE METHODS.https://jasn.asnjournals.org/content/early/ N.9280869261 Performed By: #### B MP ####[address] [address] Glucose [Mass/Vol] 87 mg/dL Normal 74 - 99 [facility] Comment on above: Performed By: #### B MP ####[place] [id number] HCO3 (Bld) [Moles/Vol] 27 mmol/L Normal 21 - [address] [facility] Comment on above: Performed By: #### B MP ####[place] [id number] Potassium [Moles/Vol] 4.5 mmol/L Normal 3.5 - 5.3 [facility] Comment on above: Performed By: #### B MP ####[place] [id number] Sodium [Moles/Vol] 137 mmol/L Normal 136 - 145 [facility] Comment on above: Performed By: #### B MP ####[place] [id number] Urea nitrogen [Mass/Vol] 23 mg/dL Normal 6 - [address] [facility] Comment on above: Performed By: #### B MP ####[address] [address] CBC AND DIFFERENTIALon 12-07 % AUTOMATED IMMATURE GRAN 0.6 % Normal 0.0 - 0.[address] [facility] Comment on above: Result Comment: Suze ture Granulocyte Count (IG) includes promyelocytes, myelocytes and metamyelocytes but does not include bands. Percent differential counts (%) should be interpreted in the context of the absolute cell counts (cells/L). Performed By: #### C BCDF ####[place] [id number] Basophils (Bld) [#/Vol] 0.02 10*3/uL Normal 0.00 - 0.[address] [facility] Comment on above: Performed By: #### C BCDF ####[address] [address] Basophils/100 WBC (Bld) 0.4 % Normal 0.0 - 2.[address] [facility] Comment on above: Performed By: #### C BCDF ####[address] [address] Eosinophils (Bld) [#/Vol] 0.11 10*3/uL Normal 0.00 - 0.[address] [facility] Comment on above: Performed By: #### C BCDF ####[address] [address] Eosinophils/100 WBC (Bld) 2.1 % Normal 0.0 - 6.[address] [facility] Comment on above: Performed By: #### C BCDF ####[address] [address] Erythrocyte distribution width (RBC) [Ratio] 12.5 % Normal 11.5 - 14.[address] [facility] Comment on above: Performed By: #### C BCDF ####[address] [address] Hematocrit (Bld) [Volume fraction] 39.1 % Normal 36.0 - 46.[address] [facility] Comment on above: Performed By: #### C BCDF ####[address] [address] Hemoglobin (Bld) [Mass/Vol] 13.0 g/dL Normal 12.0 - 16.[address] [facility] Comment on above: Performed By: #### C BCDF ####[address] [address] Lymphocytes (Bld) [#/Vol] 1.27 10*3/uL Normal 1.20 - 4.[address] [facility] Comment on above: Performed By: #### C BCDF ####[address] [address] Lymphocytes/100 WBC (Bld) 24.5 % Normal 13.0 - 44.[address] [facility] Comment on above: Performed By: #### C BCDF ####[address] [address] MCHC (RBC) [Mass/Vol] 33.2 g/dL Normal 32.0 - 36.0 [facility] Comment on above: Performed By: #### C BCDF ####[address] [address] MCV (RBC) [Entitic vol] 91 fL Normal 80 - [address] [facility] Comment on above: Performed By: #### C BCDF ####[address] [address] Monocytes (Bld) [#/Vol] 0.45 10*3/uL Normal 0.10 - 1.[address] [facility] Comment on above: Performed By: #### C BCDF ####[address] [address] Monocytes/100 WBC (Bld) 8.7 % Normal 2.0 - 10.[address] [facility] Comment on above: Performed By: #### C BCDF ####[address] [address] Neutrophils (Bld) [#/Vol] 3.30 10*3/uL Normal 1.20 - 7.[address] [facility] Comment on above: Result Comment: Perc ent differential counts (%) should be interpreted in the context of the absolute cell counts (cells/L). Performed By: #### C BCDF ####[address] [address] Neutrophils/100 WBC (Bld) 63.7 % Normal 40.0 - 80.[address] [facility] Comment on above: Performed By: #### C BCDF ####[address] [address] Platelets (Bld) [#/Vol] 115 10*3/uL Low 150 - [address] [facility] Comment on above: Performed By: #### C BCDF ####[address] [address] RBC 4.30 x10E12/L Normal 4.00 - 5.[address] [facility] Comment on above: Performed By: #### C BCDF ####[address] [address] WBC (Bld) [#/Vol] 5.2 10*3/uL Normal 4.4 - 11.3 [facility] Comment on above: Performed By: #### C BCDF ####[place] [id number] CHEST 1 VIEWon 12-07-2022 CHEST [address] [facility] CORONAVIRUS 2019 BY PCRon SARS-CoV-2 (COVID-19) RNA CHIARA+probe Ql (Unsp spec) Not detected Normal Not Detected [facility] Comment on above: Result Comment: .Julienne s test has received FDA Emergency Use Authorization (EUA) and has beenverified by [facility]. This test is onlyauthorized for the duration of time that circumstances exist to justify theauthorization of the emergency use of in vitro diagnostic tests for thedetection of SARS-CoV-2 virus and/or diagnosis of COVID-19 infection undersection 564(b)(1) of the Act, 21 U.S.C. 360bbb-3(b)(1), unless theauthorization is terminated or revoked sooner.[facility] is certified under CLIA-88 asqualified to perform high complexity testing. Testing is performed in [facility] laboratory located at [address] [place] [address].SARS-CoV-2/Flu/RSV Multiplex Test:Fact sheet for providers: https://www.fda.gov/media/807832/downloadFact sheet for patients: https://www.fda.gov/media/654475/download Performed By: #### C OV19 ####[place] [address] Lab Specimen Source Nasal, Nasopharyngeal Normal [facility] Comment on above: Performed By: #### C OV19 ####[place] [id number] Complete Blood Count + Diffe rentialon 12-07-2022 Basophils/100 WBC (Bld) 0.4 % 0.0 - 2.0 [facility] [place] Work Phone: Erythrocyte distribution width (RBC) [Ratio] 12.5 % See Below [facility] Work Phone: Comment on above: Reference Range: 11. 5 - 14.5 Hematocrit (Bld) [Volume fraction] 39.1 % See Below [facility] Work Phone: Comment on above: Reference Range: 36. 0 - 46.0 Hemoglobin (Bld) [Mass/Vol] 13.0 g/dL See Below [facility] Work Phone: Comment on above: Reference Range: 12. 0 - 16.0 Lymphocytes/100 WBC (Bld) 24.5 % See Below [facility] Work Phone: Comment on above: Reference Range: 13. 0 - 44.0 MCHC (RBC) [Mass/Vol] 33.2 g/dL See Below [facility] Work Phone: Comment on above: Reference Range: 32. 0 - 36.0 MCV (RBC) [Entitic vol] 91 fL 80 - 100 [facility] Work Phone: Monocytes/100 WBC (Bld) 8.7 % 2.0 - 10.0 [facility] Work Phone: Neutrophils/100 WBC (Bld) 63.7 % See Below [facility] Work Phone: Comment on above: Reference Range: 40. 0 - 80.0 Platelets (Bld) [#/Vol] 115 10*3/uL below low threshold 150 - 450 [facility] Work Phone: RBC (Bld) [#/Vol] 4.30 {x10E12/L} See Below [facility] Work Phone: Comment on above: Reference Range: 4.0 0 - 5.20 WBC (Bld) [#/Vol] 5.2 10*3/uL 4.4 - 11.3 [facility] Work Phone: Complete Blood Count + Differential 0.02 {x10E9/L} See Below [facility] [place] Work Phone: Comment on above: Reference Range: 0.0 0 - 0.10 Complete Blood Count + Differential 0.11 {x10E9/L} [facility] Below [facility] Work [facility]: Comment on above: Reference Range: 0.0 0 - 0.70 Complete Blood Count + Differential 0.45 {x10E9/L} See Below [facility] Work Phone: Comment on above: Reference Range: 0.1 0 - 1.00 Complete Blood Count + Differential 1.27 {x10E9/L} See Below [facility] Work Phone: Comment on above: Reference Range: 1.2 0 - 4.80 Complete Blood Count + Differential 3.30 {x10E9/L} See Below [facility] [place] Work Phone: Comment on above: Reference Range: 1.2 0 - 7.70 Percent differential counts (%) should be interpreted in the context of the absolute cell counts (cells/L). Complete Blood Count + Differential 2.1 % 0.0 - 6.0 [facility] Work [facility]: Complete Blood Count + Differential 0.6 % 0.0 - 0.9 [facility] Work Phone: Comment on above: Immature Granulocyte Count (IG) includes promyelocytes, myelocytes and metamyelocytes but does not include bands. Percent differential counts (%) should be interpreted in the context of the absolute cell counts (cells/L). Coronavirus 2019 RNA by PCR, Symptomaticon 12-07-2022 Coronavirus 2019 RNA by PCR, Symptomatic Not detected Normal See Below [facility] Work Phone: Comment on above: SOURCE: Nasal, Nasop haryngealReference Range: Not Detected.This test has received FDA Emergency Use Authorization (EUA) and has been verified by [facility]. This test is only authorized for the [...] complexity testing. Testing is performed in the [facility] laboratory located at [address] [place] [address].SARS-CoV-2/Flu/RSV Multiplex Test: Fact sheet for providers: https://www.fda.gov/media/500493/downloadFact sheet for patients: https://www.fda.gov/media/441120/download Covid 19 Resultson 3 SARS-CoV-2 (COVID-19) RNA CHIARA+probe Ql (Unsp spec) Normal [facility] DRUG SCREEN,URINEon 12-07-19 23 AMPHETAMINE SCREEN,U Negative Normal NEGATIVE [facility] Comment on above: Result Comment: CUTO FF LEVEL: 500 NG/ML Cross-reactivity has been reported with high concentrations of the following drugs: buproprion, chloroquine, chlorpromazine, ephedrine, mephentermine, fenfluramine, phentermine, phenylpropanolamine, pseudoephedrine, and propranolol. Performed By: #### D RUG3 ####[place] [address] BARBITURATES SCREEN,U Positive Abnormal NEGATIVE [facility] Comment on above: Result Comment: CUTO FF LEVEL: 200 NG/ML Performed By: #### D RUG3 ####[place] [address] BENZODIAZEPINES SCREEN,U Negative Normal NEGATIVE [facility] Comment on above: Result Comment: CUTO FF LEVEL: 200 NG/ML Performed By: #### D RUG3 ####[place] [address] CANNABINOIDS SCREEN,U Negative Normal NEGATIVE [facility] Comment on above: Result Comment: CUTO FF LEVEL: 50 NG/ML Performed By: #### D RUG3 ####[place] [address] COCAINE METABOLITE SCREEN,U Negative Normal NEGATIVE [facility] Comment on above: Result Comment: CUTO FF LEVEL: 150 NG/ML Performed By: #### D RUG3 ####[place] [address] DRUG SCREEN COMMENT SEE BELOW Normal [facility] Comment on above: Result Comment: Drug screen results are presumptive and should not be used to assesscompliance with prescribed medication. [facility] the [facility] to [facility] definitive confirmatory testing if [...] laboratory medicaldirectors. Performed By: #### D RUG3 ####[place] [address] FENTANYL SCREEN,URINE Negative Normal NEGATIVE [facility] Comment on above: Result Comment: CUTO FF LEVEL: 5 NG/ML Performed By: #### D RUG3 ####[place] [address] METHADONE SCREEN,U Negative Normal NEGATIVE [facility] Comment on above: Result Comment: CUTO FF LEVEL: 150 NG/ML The metabolite B-csayy-kkdugfjfoguter (LAAM) is not detected by this method in concentrations that would be found in the urine of patients on LAAM therapy. Performed By: #### D RUG3 ####[place] [address] OPIATES SCREEN,U Negative Normal NEGATIVE [facility] Comment on above: Result Comment: CUTO FF LEVEL: 300 NG/ML The opiate screen does not detect fentanyl, meperidine, or tramadol. Oxycodone is not consistently detected (refer to Oxycodone Screen, Urine result). Performed By: #### D RUG3 ####[place] [address] OXYCODONE SCREEN,U Negative Normal NEGATIVE [facility] Comment on above: Result Comment: CUTO FF LEVEL: 100 NG/ML This test will accurately detect both oxycodone and oxymorphone. Performed By: #### D RUG3 ####[place] [address] PCP SCREEN,U Negative Normal NEGATIVE [facility] Comment on above: Result Comment: CUTO FF LEVEL: 25 NG/ML Cross-reactivity has been reported with dextromethorphan. Performed By: #### D RUG3 ####[place] [id number] HCG, Beta Quantitativeon HCG.beta subunit Qn m[IU]/mL [facility] Work Phone: Comment on above: .Total HCG measureme nt is performed using the Naomi Michael AccessImmunoassay which detects intact HCG and free beta HCG subunit. .This test is not indicated for use as a tumor marker.HCG testing is performed using a different test methodology at [facility]3] than other [facility]. Direct result comparisonshould only be made within the same method. REF VALUESNON FEMALE <5MALES <5 HCG,BETA-QUANTITATIVEon 02-2 HCG,BETA-QUANTITATIVE <2 Normal [facility] Comment on above: Result Comment: .Tot al HCG measurement is performed using the Naomi Michael AccessImmunoassay which detects intact HCG and free beta HCG subunit..This test is not indicated for use as a tumor marker.HCG testing is performed using a different test methodology at [facility]3] than other [facility]. Direct result comparisonshould only be made within the same method.REF VALUESNON FEMALE <5MALES <5 Performed By: #### H CGQU ####[place] [address] [place] [address] Laboratory - Chemistry and C hemistry - challengeon 12-07-2022 Anion gap [Moles/Vol] 11 mmol/L 10 - 20 [facility] [place] Work Phone: Calcium [Mass/Vol] 8.3 mg/dL below low threshold 8.6 - 10.3 [facility] [place] Work Phone: Chloride [Moles/Vol] 104 mmol/L 98 - 107 [facility] Services-[facility] [place] Work Phone: CO2 [Moles/Vol] 27 mmol/L 21 - 32 [facility] [place] Work Phone: Creatinine [Mass/Vol] 1.43 mg/dL above high threshold See Below [facility] [place] Work Phone: Comment on above: Reference Range: 0.5 0 - 1.05 Glucose [Mass/Vol] 87 mg/dL 74 - 99 [facility] [place] Work Phone: Potassium [Moles/Vol] 4.5 mmol/L 3.5 - 5.3 [facility] [place] Work Phone: Sodium [Moles/Vol] 137 mmol/L 136 - 145 [facility] [place] Work Phone: Urea nitrogen [Mass/Vol] 23 mg/dL 6 - 23 [facility] [place] Work Phone: Laboratory - Drug toxicology on 12-07-2022 Amphetamines Screen Ql (U) Negative NEGATIVE [facility] [place] Work Phone: Comment on above: CUTOFF LEVEL: 500 NG /ML Cross-reactivity has been reported with high concentrations of the following drugs: buproprion, chloroquine, chlorpromazine, ephedrine, mephentermine, fenfluramine, phentermine, phenylpropanolamine, pseudoephedrine, and propranolol. Barbiturates Screen Ql (U) Positive Abnormal NEGATIVE [facility] Work Phone: Comment on above: CUTOFF LEVEL: 200 NG /ML Benzodiazepines Ql (U) Negative NEGATIVE [facility] Work Phone: Comment on above: CUTOFF LEVEL: 200 NG /ML Benzoylecgonine Screen Ql (U) Negative NEGATIVE [facility] Work Phone: Comment on above: CUTOFF LEVEL: 150 NG /ML Cannabinoids Screen Ql (U) Negative NEGATIVE [facility] Work Phone: Comment on above: CUTOFF LEVEL: 50 NG/ ML Methadone Screen Ql (U) Negative NEGATIVE [facility] Work Phone: Comment on above: CUTOFF LEVEL: 150 NG /ML The metabolite U-atdtf-miodulmfvtvkoz (LAAM) is not detected by this method in concentrations that would be found in the urine of patients on LAAM therapy. Opiates Screen Ql (U) Negative NEGATIVE [facility] Work Phone: Comment on above: CUTOFF LEVEL: 300 NG /ML The opiate screen does not detect fentanyl, meperidine, or tramadol. Oxycodone is not consistently detected (refer to Oxycodone Screen, Urine result). oxyCODONE+oxyMORphone Screen Ql (U) Negative NEGATIVE [facility] Work Phone: Comment on above: CUTOFF LEVEL: 100 NG /ML This test will accurately detect both oxycodone and oxymorphone. Phencyclidine Ql (U) Negative NEGATIVE [facility] Work Phone: Comment on above: CUTOFF LEVEL: 25 NG/ ML Cross-reactivity has been reported with dextromethorphan. No Panel Informationon 12-07 Negative NEGATIVE [facility] [place] Work Phone: Comment on above: CUTOFF LEVEL: 5 NG/M L SEE BELOW [facility] [place] Work Phone: Comment on above: Drug screen results are presumptive and should not be used to assess compliance with prescribed medication. Contact the performing [facility] laboratory to add-on definitive confirmatory testing [...] laboratory medical directors. 45 {mL/min/1.73m2} Abnormal >90 [facility] [place] Work Phone: Comment on above: CALCULATIONS OF FRIEDA MATED GFR ARE PERFORMED USING THE 2020 CKD-EPI STUDY REFIT EQUATION WITHOUT THE RACE VARIABLE FOR THE IDMS-TRACEABLE CREATININE METHODS.https://jasn.asnjournals.org/content/early/ N.4524486643 Provider Note - ED v3on 11-19 Provider Note - ED v3 Normal [facility] Radiologyon 12-07-2022 XR Chest Single view Normal [facility] Work Phone: Risk Screen - Adult Emergenc yon 12-07-2022 Risk Screen - Adult Emergency Normal [facility] Triage - EDon 12-07-2022 Triage - ED Normal [facility] Office Visit (Internal Medic ine)on 12-02-2022 [...] Transmission to [facility]; Last Updated By: WeDidIt Naartjie; 12/02/2022 2:35:17 PM Hypomagnesemia Start: Magnesium 400 MG Oral Tablet; Take 1 tablet daily Rx By: Jeanie Ayala; Dispense: 0 Days ; #:30 Tablet; Refill: 11;For: Hypomagnesemia; SHARLENE = N; Verified Transmission to [facility]; Last Updated By: [email or web address].in; 12/02/2022 2:35:16 PM Seizure Neurology - General Referral Evaluation and Treatment Evaluate AND Treat Status: Complete Done: [id number] Ordered;For: Seizure; Ordered By: Jeanie Ayala Performed: Due: [id number]; Last Updated By: Alyce Rao; 12/02/2022 3:34:[address]. Stage 3b chronic kidney disease Nephrology Referral Evaluation and Treatment Evaluate AND Treat Status: Complete Done: [id number] Ordered;For: Stage 3b chronic kidney disease; Ordered By: Jeanie Ayala Performed: Due: [id number]; Last Updated By: Alyce Rao; 12/02/2022 4:10:22 [...] Hypokalemia (276 (more content not included)... Normal [facility] CBC AND DIFFERENTIALon 11-26 % AUTOMATED IMMATURE GRAN 0.7 % Normal 0.0 - 0.[address] [facility] Comment on above: Result Comment: Suze ture Granulocyte Count (IG) includes promyelocytes, myelocytes and metamyelocytes but does not include bands. Percent differential counts (%) should be interpreted in the context of the absolute cell counts (cells/L). Performed By: #### C BCDF ####[facility] [place] [address] Basophils (Bld) [#/Vol] 0.02 10*3/uL Normal 0.00 - 0.[address] [facility] Comment on above: Performed By: #### C BCDF ####[address] [address] Basophils/100 WBC (Bld) 0.3 % Normal 0.0 - 2.[address] [facility] Comment on above: Performed By: #### C BCDF ####[address] [address] Eosinophils (Bld) [#/Vol] 0.08 10*3/uL Normal 0.00 - 0.[address] [facility] Comment on above: Performed By: #### C BCDF ####[address] [address] Eosinophils/100 WBC (Bld) 1.2 % Normal 0.0 - 6.[address] [facility] Comment on above: Performed By: #### C BCDF ####[address] [address] Erythrocyte distribution width (RBC) [Ratio] 12.7 % Normal 11.5 - 14.[address] [facility] Comment on above: Performed By: #### C BCDF ####[address] [address] Hematocrit (Bld) [Volume fraction] 40.3 % Normal 36.0 - 46.[address] [facility] Comment on above: Performed By: #### C BCDF ####[address] [address] Hemoglobin (Bld) [Mass/Vol] 13.4 g/dL Normal 12.0 - 16.[address] [facility] Comment on above: Performed By: #### C BCDF ####[address] [address] Lymphocytes (Bld) [#/Vol] 1.68 10*3/uL Normal 1.20 - 4.[address] [facility] Comment on above: Performed By: #### C BCDF ####[address] [address] Lymphocytes/100 WBC (Bld) 24.3 % Normal 13.0 - 44.[address] [facility] Comment on above: Performed By: #### C BCDF ####[address] [address] MCHC (RBC) [Mass/Vol] 33.3 g/dL Normal 32.0 - 36.0 [facility] Comment on above: Performed By: #### C BCDF ####[address] [address] MCV (RBC) [Entitic vol] 90 fL Normal 80 - [address] [facility] Comment on above: Performed By: #### C BCDF ####[address] [address] Monocytes (Bld) [#/Vol] 0.58 10*3/uL Normal 0.10 - 1.[address] [facility] Comment on above: Performed By: #### C BCDF ####[address] [address] Monocytes/100 WBC (Bld) 8.4 % Normal 2.0 - 10.[address] [facility] Comment on above: Performed By: #### C BCDF ####[address] [address] Neutrophils (Bld) [#/Vol] 4.50 10*3/uL Normal 1.20 - 7.[address] [facility] Comment on above: Result Comment: Perc ent differential counts (%) should be interpreted in the context of the absolute cell counts (cells/L). Performed By: #### C BCDF ####[address] [address] Neutrophils/100 WBC (Bld) 65.1 % Normal 40.0 - 80.[address] [facility] Comment on above: Performed By: #### C BCDF ####[address] [address] Platelets (Bld) [#/Vol] 134 10*3/uL Low 150 - [address] [facility] Comment on above: Result Comment: Plat elet count verified by smear review. no plt clumps or clots seen Performed By: #### C BCDF ####[address] [address] RBC 4.47 x10E12/L Normal 4.00 - 5.[address] [facility] Comment on above: Performed By: #### C BCDF ####[address] [address] WBC (Bld) [#/Vol] 6.9 10*3/uL Normal 4.4 - 11.3 [facility] Comment on above: Performed By: #### C BCDF ####[place] [id number] COMPREHENSIVE PANELon 2022 Albumin [Mass/Vol] 4.0 g/dL Normal 3.4 - 5.0 [facility] Comment on above: Performed By: #### C MP ####[address] [address] ALP [Catalytic activity/Vol] 69 U/L Normal 33 - [address] [facility] Comment on above: Performed By: #### C MP ####[address] [address] ALT [Catalytic activity/Vol] 17 U/L Normal 7 - [address] [facility] Comment on above: Result Comment: Marjan ents treated with Sulfasalazine may generate falsely decreased results for ALT. Performed By: #### C MP ####[address] [address] Anion gap [Moles/Vol] 13 mmol/L Normal 10 - 20 [facility] Comment on above: Performed By: #### C MP ####[address] [address] AST [Catalytic activity/Vol] 20 U/L Normal 9 - [address] [facility] Comment on above: Performed By: #### C MP ####[address] [address] Bilirubin [Mass/Vol] 0.3 mg/dL Normal 0.0 - 1.2 [facility] Comment on above: Performed By: #### C MP ####[address] [address] Calcium [Mass/Vol] 9.2 mg/dL Normal 8.6 - 10.3 [facility] Comment on above: Performed By: #### C MP ####[address] [address] Chloride [Moles/Vol] 101 mmol/L Normal 98 - 107 [facility] Comment on above: Performed By: #### C MP ####[address] [address] Creatinine [Mass/Vol] 1.47 mg/dL High 0.50 - 1.05 [facility] Comment on above: Performed By: #### C MP ####[address] [address] GFR/1.73 sq M.predicted among non-blacks MDRD (S/P/Bld) [Vol rate/Area] 43 mL/min/{1.73_m2} Abnormal >[address] [facility] Comment on above: Result Comment: CALC ULATIONS OF ESTIMATED GFR ARE PERFORMED USING THE 2020 CKD-EPI STUDY REFIT EQUATION WITHOUT THE RACE VARIABLE FOR THE IDMS-TRACEABLE CREATININE METHODS.https://jasn.asnjournals.org/content/early/ N.9358501531 Performed By: #### C MP ####[address] [address] Glucose [Mass/Vol] 89 mg/dL Normal 74 - 99 [facility] Comment on above: Performed By: #### C MP ####[address] [address] HCO3 (Bld) [Moles/Vol] 27 mmol/L Normal 21 - [address] [facility] Comment on above: Performed By: #### C MP ####[address] [address] Potassium [Moles/Vol] 3.9 mmol/L Normal 3.5 - 5.3 [facility] Comment on above: Performed By: #### C MP ####[address] [address] Protein [Mass/Vol] 6.6 g/dL Normal 6.4 - 8.2 [facility] Comment on above: Performed By: #### C MP ####[address] [address] Sodium [Moles/Vol] 137 mmol/L Normal 136 - 145 [facility] Comment on above: Performed By: #### C MP ####[place] [address] [place] [address] Urea nitrogen [Mass/Vol] 22 mg/dL Normal 6 - [address] [facility] Comment on above: Performed By: #### C MP ####[place] [address] [place] [address] CT HEAD WO CONTRASTon 2022 CT HEAD WO CONTRAST Normal [facility] CT Head without Contraston 0 11-26-2022 CT Head limited WO contrast Normal [facility] [place] Work Phone: Complete Blood Count + Diffe rentialon 11-26-2022 Basophils/100 WBC (Bld) 0.3 % 0.0 - 2.0 [facility] [place] Work Phone: Erythrocyte distribution width (RBC) [Ratio] 12.7 % See Below [facility] [place] Work Phone: Comment on above: Reference Range: 11. 5 - 14.5 Hematocrit (Bld) [Volume fraction] 40.3 % See Below [facility] [place] Work Phone: Comment on above: Reference Range: 36. 0 - 46.0 Hemoglobin (Bld) [Mass/Vol] 13.4 g/dL See Below [facility] [place] Work Phone: Comment on above: Reference Range: 12. 0 - 16.0 Lymphocytes/100 WBC (Bld) 24.3 % See Below [facility] Work Phone: Comment on above: Reference Range: 13. 0 - 44.0 MCHC (RBC) [Mass/Vol] 33.3 g/dL See Below [facility] [place] Work Phone: Comment on above: Reference Range: 32. 0 - 36.0 MCV (RBC) [Entitic vol] 90 fL 80 - 100 [facility] Work Phone: Monocytes/100 WBC (Bld) 8.4 % 2.0 - 10.0 [facility] Work Phone: Neutrophils/100 WBC (Bld) 65.1 % See Below [facility] [place] Work Phone: Comment on above: Reference Range: 40. 0 - 80.0 Platelets (Bld) [#/Vol] 134 10*3/uL below low threshold 150 - 450 [facility] Work Phone: Comment on above: Platelet count verif ied by smear review. no plt clumps or clots seen RBC (Bld) [#/Vol] 4.47 {x10E12/L} See Below [facility] Work Phone: Comment on above: Reference Range: 4.0 0 - 5.20 WBC (Bld) [#/Vol] 6.9 10*3/uL 4.4 - 11.3 [facility] Work Phone: Complete Blood Count + Differential 0.02 {x10E9/L} See Below [facility] [place] Work Phone: Comment on above: Reference Range: 0.0 0 - 0.10 Complete Blood Count + Differential 0.08 {x10E9/L} See Below [facility] [place] Work Phone: Comment on above: Reference Range: 0.0 0 - 0.70 Complete Blood Count + Differential 0.58 {x10E9/L} See Below [facility] [place] Work Phone: Comment on above: Reference Range: 0.1 0 - 1.00 Complete Blood Count + Differential 1.68 {x10E9/L} See Below [facility] Work Phone: Comment on above: Reference Range: 1.2 0 - 4.80 Complete Blood Count + Differential 4.50 {x10E9/L} See Below [facility] [place] Work Phone: Comment on above: Reference Range: 1.2 0 - 7.70 Percent differential counts (%) should be interpreted in the context of the absolute cell counts (cells/L). Complete Blood Count + Differential 1.2 % 0.0 - 6.0 [facility] [place] Work Phone: Complete Blood Count + Differential 0.7 % 0.0 - 0.9 [facility] Work Phone: Comment on above: Immature Granulocyte Count (IG) includes promyelocytes, myelocytes and metamyelocytes but does not include bands. Percent differential counts (%) should be interpreted in the context of the absolute cell counts (cells/L). LACTATEon 11-26-2022 Lactate [Moles/Vol] 1.9 mmol/L Normal 0.4 - 2.0 [facility] Comment on above: Result Comment: Nathalie puncture immediately after or during the administration of Metamizole may lead to falsely low results. Testing should be performed immediately prior to Metamizole dosing. Performed By: #### L ACT ####[place] [id number] LIPASEon 11-26-2022 Lipase [Catalytic activity/Vol] 59 U/L Normal 9 - [address] [facility] Comment on above: Result Comment: Nathalie puncture immediately after or during the administration of Metamizole may lead to falsely low results. Testing should be performed immediately prior to Metamizole dosing. X-kmbksr-c-benzoquinone imine (metabolite of Acetaminophen) will generate erroneously low results in samples for patients that have taken toxic doses of acetaminophen. Performed By: #### L IPAS ####[address] [address] Laboratory - Chemistry and C hemistry - challengeon 11-26-2022 Albumin BCP dye [Mass/Vol] 4.0 g/dL 3.4 - 5.0 [facility] [place] Work Phone: ALP [Catalytic activity/Vol] 69 U/L 33 - 110 [facility] [place] Work Phone: ALT With P-5'-P [Catalytic activity/Vol] 17 U/L 7 - 45 [facility] [place] Work Phone: Comment on above: Patients treated wit h Sulfasalazine may generate falsely decreased results for ALT. Anion gap [Moles/Vol] 13 mmol/L 10 - 20 [facility] [place] Work Phone: AST With P-5'-P [Catalytic activity/Vol] 20 U/L 9 - 39 [facility] [place] Work Phone: Bilirubin [Mass/Vol] 0.3 mg/dL 0.0 - 1.2 [facility] [place] Work Phone: Calcium [Mass/Vol] 9.2 mg/dL 8.6 - 10.3 [facility] [place] Work Phone: Chloride [Moles/Vol] 101 mmol/L 98 - 107 [facility] [place] Work Phone: CO2 [Moles/Vol] 27 mmol/L 21 - 32 [facility] [place] Work Phone: Creatinine [Mass/Vol] 1.47 mg/dL above high threshold See Below [facility] [place] Work Phone: Comment on above: Reference Range: 0.5 0 - 1.05 Glucose [Mass/Vol] 89 mg/dL 74 - 99 [facility] [place] Work Phone: Potassium [Moles/Vol] 3.9 mmol/L 3.5 - 5.3 [facility] [place] Work Phone: Protein [Mass/Vol] 6.6 g/dL 6.4 - 8.2 [facility] [place] Work Phone: Sodium [Moles/Vol] 137 mmol/L 136 - 145 [facility] [place] Work Phone: Urea nitrogen [Mass/Vol] 22 mg/dL 6 - 23 [facility] [place] Work Phone: Lactate, Levelon 11-26-2022 Lactate [Moles/Vol] 1.9 mmol/L 0.4 - 2.0 [facility] [place] Work Phone: Comment on above: Venipuncture immedia tely after or during the administration of Metamizole may lead to falsely low results. Testing should be performed immediately prior to Metamizole dosing. Lipase, Serumon 11-26-2022 Lipase [Catalytic activity/Vol] 59 U/L 9 - 82 [facility] [place] Work Phone: Comment on above: Venipuncture immedia tely after or during the administration of Metamizole may lead to falsely low results. Testing should be performed immediately prior to Metamizole dosing. Y-qtlyhk-a-benzoquinone imine (metabolite of Acetaminophen) will generate erroneously low results in samples for patients that have taken toxic doses of acetaminophen. MAGNESIUMon 11-26-2022 Magnesium [Mass/Vol] 1.37 mg/dL Low 1.60 - 2.40 [facility] Comment on above: Performed By: #### M G ####[address] [address] MAGNESIUM Canceled Normal [facility] Comment on above: Order Comment: TEST MAGNESIUM WAS CANCELLED, 11/26/2022 15:49 DUPLICATE ORDER. Performed By: #### M G ####[address] [address] Magnesium, Serumon Magnesium [Mass/Vol] [facility]eled [facility] [place] Work Phone: Magnesium [Mass/Vol] 1.37 mg/dL below low threshold See Below [facility] Work Phone: Comment on above: Reference Range: 1.6 0 - 2.40 No Panel Informationon 11-26 43 {mL/min/1.73m2} Abnormal >90 [facility] Work Phone: Comment on above: CALCULATIONS OF FRIEDA MATED GFR ARE PERFORMED USING THE 2020 CKD-EPI STUDY REFIT EQUATION WITHOUT THE RACE VARIABLE FOR THE IDMS-TRACEABLE CREATININE METHODS.https://jasn.asnjournals.org/content/early/ N.6518910605 Provider Note - ED v3on - Provider Note - ED v3 Normal [facility] Risk Screen - Adult Emergenc yon 11-26-2022 Risk Screen - Adult Emergency Normal [facility] TSHon 11-26-2022 TSH Qn 2.41 m[IU]/L Normal 0.44 - 3.[address] [facility] Comment on above: Result Comment: TSH testing is performed using different testing methodology at [facility] than at other [facility]. Direct result comparisons should only be made within the same method. Performed By: #### T SH2 ####[address] [place] [address] TSH - Thyroid Stimulating Ho rmone, Serumon 11-26-2022 TSH Qn 2.41 m[IU]/L See Below [facility] Work Phone: Comment on above: Reference Range: 0.4 4 - 3.98 TSH testing is performed using different testing methodology at [facility] than at other [facility]. Direct result comparisons should only be made within the same method. Triage - EDon 11-26-2022 Triage - ED Normal [facility] URINALYSIS WITH CULTURE IF I NDICATEDon 11-26-2022 Appearance (U) Canceled Normal [facility] Comment on above: Order Comment: TEST URINALYSIS WITH CULTURE IF INDICATED WAS CANCELLED, 11/26/2022 21:55discharged. Performed By: #### U ARFX ####[address] [address] ASCORBIC ACID Canceled [facility] Comment on above: Order Comment: TEST URINALYSIS WITH CULTURE IF INDICATED WAS CANCELLED, 11/26/2022 21:55discharged. Result Comment: Conc entrations > = 20 mg/dL of ascorbic acid can be expected to cause stronginterference in the reactions testing for glucose, nitrite and blood. It isrecommended to discontinue Vitamin C administration and retest in 10 hours. Performed By: #### U ARFX ####[address] [address] Bilirubin Ql (U) Canceled [facility] Comment on above: Order Comment: TEST URINALYSIS WITH CULTURE IF INDICATED WAS CANCELLED, 11/26/2022 21:55discharged. Performed By: #### U ARFX ####[address] [address] Color (U) Canceled [facility] Comment on above: Order Comment: TEST URINALYSIS WITH CULTURE IF INDICATED WAS CANCELLED, 11/26/2022 21:55discharged. Performed By: #### U ARFX ####[address] [address] Glucose Ql (U) Canceled [facility] Comment on above: Order Comment: TEST URINALYSIS WITH CULTURE IF INDICATED WAS CANCELLED, 11/26/2022 21:55discharged. Performed By: #### U ARFX ####[address] [address] Hemoglobin Ql (U) Canceled [facility] Comment on above: Order Comment: TEST URINALYSIS WITH CULTURE IF INDICATED WAS CANCELLED, 11/26/2022 21:55discharged. Performed By: #### U ARFX ####[address] [address] Ketones Ql (U) Canceled [facility] Comment on above: Order Comment: TEST URINALYSIS WITH CULTURE IF INDICATED WAS CANCELLED, 11/26/2022 21:55discharged. Performed By: #### U ARFX ####[place] [address] Leukocyte esterase Test strip Ql (U) Canceled [facility] Comment on above: Order Comment: TEST URINALYSIS WITH CULTURE IF INDICATED WAS CANCELLED, 11/26/2022 21:55discharged. Performed By: #### U ARFX ####[place] [address] Nitrite Ql (U) Canceled [facility] Comment on above: Order Comment: TEST URINALYSIS WITH CULTURE IF INDICATED WAS CANCELLED, 11/26/2022 21:55discharged. Performed By: #### U ARFX ####[place] [address] pH Canceled [facility] Comment on above: Order Comment: TEST URINALYSIS WITH CULTURE IF INDICATED WAS CANCELLED, 11/26/2022 21:55discharged. Performed By: #### U ARFX ####[place] [address] Protein Ql (U) Canceled [facility] Comment on above: Order Comment: TEST URINALYSIS WITH CULTURE IF INDICATED WAS CANCELLED, 11/26/2022 21:55discharged. Performed By: #### U ARFX ####[place] [address] Specific gravity (U) [Rel density] Canceled [facility] Comment on above: Order Comment: TEST URINALYSIS WITH CULTURE IF INDICATED WAS CANCELLED, 11/26/2022 21:55discharged. Performed By: #### U ARFX ####[place] [address] UROBILINOGEN Canceled [facility] Comment on above: Order Comment: TEST URINALYSIS WITH CULTURE IF INDICATED WAS CANCELLED, 11/26/2022 21:55discharged. Performed By: #### U ARFX ####[facility] [place] [address] Office Visit (Cardiology)on 11-25-2022 Follow-up visit Diagnoses/Problems Assessed History of acute renal failure (V13.09) (Z87.448) Body mass index (BMI) of 38.0 to 38.9 in adult (V85.38) (Z68.38) Dizziness (780.4) (R42) Falls (E888.9) (W19.XXXA) Medication management (V58.69) (Z79.899) Seizure (780.39) (R56.9) Orders History of acute renal failure Nephrology Referral Evaluation and Treatment Evaluate AND Treat Status: Hold For - Scheduling Requested for: [id number] Seizure Neurology - General Referral Evaluation and Treatment Evaluate AND Treat Status: Hold For - Scheduling Requested for: [id number] Unlinked Stop: hydroCHLOROthiazide 12.5 MG Oral Capsule [...] positions. BP not currently checked at the [facility] and patient hypotensive in the office. In further conversation, patient reports a history of acute renal failure approximately 22 years ago and requesting to see a wind energy technician to establish care. She also is not happy with her current Neurologist in [place] and would like a referral placed to [...] Date: Jun (more content not included)... Normal [facility] Tobacco Screening.on 023 Fall risk assessment b) One or more fall s in the last year [employer] Work Phone: Tobacco use status CPHS b) No [employer] Work Phone: Office Visit (Internal Medic ine)on [...] of hypertensi (more content not included)... Normal [employer] Tobacco Screening.on 023 Fall risk assessment b) One or more fall s in the last year [facility] Work Phone: Tobacco use status CPHS b) No [facility] Work Phone: Narrative Note - Outpatient- CPS for bubble study and definiton 11-12-2022 Narrative Note - Outpatient-CPS for bubble study and definit Normal [facility] Chart Updateon 11-10-2022 Chart Update Diagnoses/Problems Falls (E888.9) (W19.XXXA) Knee pain (719.46) (M25.569) Widebased gait (781.2) (R26.89) Orders Falls, Knee pain, Widebased gait Physical Therapy - Aquatic Referral Evaluation and Treatment Evaluate AND Treat Please send eval and updates for review Status: Hold For - Scheduling Requested for: [id number] Ordered;For: Falls, Knee pain, Widebased gait; Ordered By: Reanna Kemp Performed: Due: 08Feb2023 Chart Update PT note received from home [facility] [employer], reviewed most recent therapy visit note from 11/03/2022. Patient does walk with a rolling walker up to 45 feet with contact-guard assist, positive body tremors noted and steps are symmetrical with adequate clearance. [facility]FP goal of ambulating up to 100 feet and short-term goal to 50 feet on even surfaces with rollator. No changes to anticipated addition of aquatic therapy to improve strengthening. Staff to scan and PT notes for review at next visit. Signatures Electronically signed by : DOMI Suarez; Nov 16 2022 12:07PM EST (Author) Normal [employer] Established Visit (Orthopaed ic Surgery)on 11-10-2022 Established [...] knee rehab and gait assessment, will have MOVEMENT ASSEMBLY FINAL INSPECTOR follow with facility as this will help [...] SOAP note. This note was generated using Crystal Clear Vision software. It may contain errors in wording, [...] Present Illness Agree with CC as noted. Sophia is a pleasant 47-year-old female accompanied by [...] congestive heart (more content not included)... Normal [employer] Tobacco Screening.on 023 Fall risk assessment b) One or more fall s in the last year [facility] Work Phone: Tobacco use status CPHS b) No [employer] Work Phone: Office Visit (Cardiology)on 11-05-2022 Follow-up visit Diagnoses/Problems Assessed Family history of Diabetes Mellitus (V18.0) : Family History mother Palpitation (785.1) (R00.2) Dizziness (780.4) (R42) Orders Dizziness Echocardiogram; Status:Hold For - Scheduling; Requested for:05Nov2022; Holter Monitor 3-14 Days; Status:Hold For - Scheduling; Requested for:05Nov2022; Palpitation IO EKG Electrocardiogram- 12 Lead; Status:Complete - Retrospective Authorization; Done: 05Nov2022 Chief Complaint Palpitations History of Present [id number] lady with a medical history of hypertension, [...] % Otic (more content not included)... Normal [employer] Tobacco Screening.on 023 Fall risk assessment b) One or more fall s in the last year [facility] [employer] Work Phone: Tobacco use status CPHS b) No [facility] [employer] Work Phone: KEPPRAon 11-01-2022 KEPPRA 18 ug/mL Normal 10 - [address] [facility] Comment on above: Result Comment: Briv aracetam may falsely increase the amount of levetiracetam measured by this method. Serum levels should be confirmed by a valid chromatographic method for patients with these drugs co-present in circulation. Performed By: #### K EPPR ####[id number] [place] [address] CALCIUM, IONIZEDon 3 CALCIUM, IONIZED 1.08 mmol/L Low 1.10 - 1.33 [facility] Comment on above: Performed By: #### I ONC1 ####[address] [address] CBC AND DIFFERENTIALon 10-31 % AUTOMATED IMMATURE GRAN 0.9 % Normal 0.0 - 0.[address] [facility] Comment on above: Result Comment: Suze ture Granulocyte Count (IG) includes promyelocytes, myelocytes and metamyelocytes but does not include bands. Percent differential counts (%) should be interpreted in the context of the absolute cell counts (cells/L). Performed By: #### C BCDF ####[address] [address] Basophils (Bld) [#/Vol] 0.04 10*3/uL Normal 0.00 - 0.[address] [facility] Comment on above: Performed By: #### C BCDF ####[address] [address] Eosinophils (Bld) [#/Vol] 0.12 10*3/uL Normal 0.00 - 0.[address] [facility] Comment on above: Performed By: #### C BCDF ####[address] [address] Eosinophils/100 WBC (Bld) 1.2 % Normal 0.0 - 6.[address] [facility] Comment on above: Performed By: #### C BCDF ####[id number] Lymphocytes (Bld) [#/Vol] 2.32 10*3/uL Normal 1.20 - 4.[address] [facility] Comment on above: Performed By: #### C BCDF ####[id number] Monocytes (Bld) [#/Vol] 0.78 10*3/uL Normal 0.10 - 1.[address] [facility] Comment on above: Performed By: #### C BCDF ####[address] [address] Neutrophils (Bld) [#/Vol] 6.32 10*3/uL Normal 1.20 - 7.[address] [facility] Comment on above: Result Comment: Perc ent differential counts (%) should be interpreted in the context of the absolute cell counts (cells/L). Performed By: #### C BCDF ####[place] [address] RBC 4.71 x10E12/L Normal 4.00 - 5.[address] [facility] Comment on above: Performed By: #### C BCDF ####[id number] COMPREHENSIVE PANELon 2022 Albumin [Mass/Vol] 4.2 g/dL Normal 3.4 - 5.0 [facility] Comment on above: Performed By: #### C MP ####[address] [address] ALP [Catalytic activity/Vol] 71 U/L Normal 33 - [address] [facility] Comment on above: Performed By: #### C MP ####[address] [address] ALT [Catalytic activity/Vol] 17 U/L Normal 7 - [address] [facility] Comment on above: Result Comment: Marjan ents treated with Sulfasalazine may generate falsely decreased results for ALT. Performed By: #### C MP ####[address] [address] Anion gap [Moles/Vol] 15 mmol/L Normal 10 - 20 [facility] Comment on above: Performed By: #### C MP ####[address] [address] AST [Catalytic activity/Vol] 22 U/L Normal 9 - [address] [facility] Comment on above: Performed By: #### C MP ####[address] [address] Bilirubin [Mass/Vol] 0.4 mg/dL Normal 0.0 - 1.2 [facility] Comment on above: Performed By: #### C MP ####[address] [address] Calcium [Mass/Vol] 9.3 mg/dL Normal 8.6 - 10.3 [facility] Comment on above: Performed By: #### C MP ####[address] [address] Chloride [Moles/Vol] 99 mmol/L Normal 98 - 107 [facility] Comment on above: Performed By: #### C MP ####[address] [address] Creatinine [Mass/Vol] 1.46 mg/dL High 0.50 - 1.05 [facility] Comment on above: Performed By: #### C MP ####[address] [address] GFR/1.73 sq M.predicted among non-blacks MDRD (S/P/Bld) [Vol rate/Area] 44 mL/min/{1.73_m2} Abnormal >[address] [facility] Comment on above: Result Comment: CALC ULATIONS OF ESTIMATED GFR ARE PERFORMED USING THE 2020 CKD-EPI STUDY REFIT EQUATION WITHOUT THE RACE VARIABLE FOR THE IDMS-TRACEABLE CREATININE METHODS.https://jasn.asnjournals.org/content// N.0637554315 Performed By: #### C MP ####[address] [address] Glucose [Mass/Vol] 101 mg/dL High 74 - 99 [facility] Comment on above: Performed By: #### C MP ####[address] [address] HCO3 (Bld) [Moles/Vol] 27 mmol/L Normal 21 - [address] [facility] Comment on above: Performed By: #### C MP ####[address] [address] Potassium [Moles/Vol] 3.5 mmol/L Normal 3.5 - 5.3 [facility] Comment on above: Performed By: #### C MP ####[address] [address] Protein [Mass/Vol] 6.9 g/dL Normal 6.4 - 8.2 [facility] Comment on above: Performed By: #### C MP ####[address] [address] Sodium [Moles/Vol] 137 mmol/L Normal 136 - 145 [facility] Comment on above: Performed By: #### C MP ####[address] [address] Urea nitrogen [Mass/Vol] 27 mg/dL High 6 - [address] [facility] Comment on above: Performed By: #### C MP ####[address] [address] CREATINE KINASEon 10-31-2022 CK [Catalytic activity/Vol] 59 U/L Normal 0 - [address] [facility] Comment on above: Performed By: #### C K ####[address] [address] Calcium, Ionized Levelon Calcium, Ionized Level 1.08 mmol/L below low threshold See Below [place] [address] [facility] Work Phone: Comment on above: Reference Range: 1.1 0 - 1.33 Complete Blood Count + Diffe rentialon 10-31-2022 Basophils/100 WBC (Bld) 0.4 % Normal 0.0 - 2.[address] Work Phone: Comment on above: Performed By: #### C BCDF ####[address] [address] Erythrocyte distribution width (RBC) [Ratio] 13.1 % Normal 11.5 - 14.[address] Work Phone: Comment on above: Reference Range: 11. 5 - 14.5 Performed By: #### C BCDF ####[address] [address] Hematocrit (Bld) [Volume fraction] 42.3 % Normal 36.0 - 46.[address] Work Phone: Comment on above: Reference Range: 36. 0 - 46.0 Performed By: #### C BCDF ####[address] [address] Hemoglobin (Bld) [Mass/Vol] 14.1 g/dL Normal 12.0 - 16.[address] Work Phone: Comment on above: Reference Range: 12. 0 - 16.0 Performed By: #### C BCDF ####[address] [address] Lymphocytes/100 WBC (Bld) 24.0 % Normal 13.0 - 44.[address] Work Phone: Comment on above: Reference Range: 13. 0 - 44.0 Performed By: #### C BCDF ####[address] [address] MCHC (RBC) [Mass/Vol] 33.3 g/dL Normal 32.0 - 36.[address] Work Phone: Comment on above: Reference Range: 32. 0 - 36.0 Performed By: #### C BCDF ####[address] [address] MCV (RBC) [Entitic vol] 90 fL Normal 80 - [address] Work Phone: Comment on above: Performed By: #### C BCDF ####[address] [address] Monocytes/100 WBC (Bld) 8.1 % Normal 2.0 - 10.[address] Work Phone: Comment on above: Performed By: #### C BCDF ####[address] [address] Neutrophils/100 WBC (Bld) 65.4 % Normal 40.0 - 80.[address] Work Phone: Comment on above: Reference Range: 40. 0 - 80.0 Performed By: #### C BCDF ####[address] [address] Platelets (Bld) [#/Vol] 152 10*3/uL Normal 150 - [address] Work Phone: Comment on above: Performed By: #### C BCDF ####[address] [address] RBC (Bld) [#/Vol] 4.71 {x10E12/L} See Below [address] Work Phone: Comment on above: Reference Range: 4.0 0 - 5.20 WBC (Bld) [#/Vol] 9.7 10*3/uL Normal 4.4 - 11.3 [facility] diol[address] Work Phone: Comment on above: Performed By: #### C [facility] ####[address] [place] [address] Complete Blood Count + Differential 0.04 {x10E9/L} See Below [address] Work Phone: Comment on above: Reference Range: 0.0 0 - 0.10 Complete Blood Count + Differential 0.12 {x10E9/L} See Below [address] Work Phone: Comment on above: Reference Range: 0.0 0 - 0.70 Complete Blood Count + Differential 0.78 {x10E9/L} See Below [address] Work Phone: Comment on above: Reference Range: 0.1 0 - 1.00 Complete Blood Count + Differential 2.32 {x10E9/L} See Below [address] Work Phone: Comment on above: Reference Range: 1.2 0 - 4.80 Complete Blood Count + Differential 6.32 {x10E9/L} See Below [address] Work Phone: Comment on above: Reference Range: 1.2 0 - 7.70 Percent differential counts (%) should be interpreted in the context of the absolute cell counts (cells/L). Complete Blood Count + Differential 1.2 % 0.0 - 6.[address] Work Phone: Complete Blood Count + Differential 0.9 % 0.0 - 0.[address] Work Phone: Comment on above: Immature Granulocyte Count (IG) includes promyelocytes, myelocytes and metamyelocytes but does not include bands. Percent differential counts (%) should be interpreted in the context of the absolute cell counts (cells/L). Creatine Kinase, Levelon CK [Catalytic activity/Vol] 59 U/L 0 - 215 [place] [address] [employer] Work Phone: Kepp, Levelon 10-31-2022 levETIRAcetam [Mass/Vol] 18 ug/mL 10 - [address] Work Phone: Comment on above: Brivaracetam may fal sely increase the amount of levetiracetam measured by this method. Serum levels should be confirmed by a valid chromatographic method for patients with these drugs co-present in circulation. LACTATEon 10-31-2022 Lactate [Moles/Vol] 2.2 mmol/L High 0.4 - 2.0 [facility] Comment on above: Result Comment: Nathalie puncture immediately after or during the administration of Metamizole may lead to falsely low results. Testing should be performed immediately prior to Metamizole dosing. Performed By: #### L ACT ####[facility] [place] [address] Laboratory - Chemistry and C hemistry - challengeon 10-31-2022 Albumin BCP dye [Mass/Vol] 4.2 g/dL 3.4 - 5.0 [place] [address] [employer] Work Phone: ALP [Catalytic activity/Vol] 71 U/L 33 - [address] Work Phone: ALT With P-5'-P [Catalytic activity/Vol] 17 U/L 7 - [address] Work Phone: Comment on above: Patients treated wit h Sulfasalazine may generate falsely decreased results for ALT. Anion gap [Moles/Vol] 15 mmol/L 10 - 20 [place] [address] [employer] Work Phone: AST With P-5'-P [Catalytic activity/Vol] 22 U/L 9 - 39 [address] Work Phone: Bilirubin [Mass/Vol] 0.4 mg/dL 0.0 - 1.2 [facility] [place] [address] [employer] Work Phone: Calcium [Mass/Vol] 9.3 mg/dL 8.6 - 10.3 [facility]- [address] Work Phone: Chloride [Moles/Vol] 99 mmol/L 98 - 107 [facility] ardiology- [address] Work Phone: CO2 [Moles/Vol] 27 mmol/L 21 - 32 [facility]- [address] Work Phone: Creatinine [Mass/Vol] 1.46 mg/dL above high threshold See Below -Cardiology[address] Work Phone: Comment on above: Reference Range: 0.5 0 - 1.05 Glucose [Mass/Vol] 101 mg/dL above high threshold 74 - 99 -[address] Work Phone: Potassium [Moles/Vol] 3.5 mmol/L 3.5 - 5.3 - Cardiology[address] Work Phone: Protein [Mass/Vol] 6.9 g/dL 6.4 - 8.2 -Car diology[address] Work Phone: Sodium [Moles/Vol] 137 mmol/L 136 - 145 -Car diology[address] Work Phone: Urea nitrogen [Mass/Vol] 27 mg/dL above high threshold 6 - 23 -Cardiology[address] Work Phone: Lactate, Levelon 10-31-2022 Lactate [Moles/Vol] 2.2 mmol/L above high threshold 0.4 - 2.0 -Cardiology[address] Work Phone: Comment on above: Venipuncture immedia tely after or during the administration of Metamizole may lead to falsely low results. Testing should be performed immediately prior to Metamizole dosing. No Panel Informationon 10-31 44 {mL/min/1.73m2} Abnormal >90 [facility]- [address] Work Phone: Comment on above: CALCULATIONS OF FRIEDA MATED GFR ARE PERFORMED USING THE 2020 CKD-EPI STUDY REFIT EQUATION WITHOUT THE RACE VARIABLE FOR THE IDMS-TRACEABLE CREATININE METHODS.https://jasn.asnjournals.org/content/early/ N.5954959272 Provider Note - ED v3on 10-18 Provider Note - ED v3 Normal [facility] Risk Screen - Adult Emergenc yon 10-31-2022 Risk Screen - Adult Emergency Normal [facility] Triage - EDon 10-31-2022 Triage - ED Normal [facility] Established Visit (Orthopaed ic Surgery)on 09-16-2022 [...] Dr. Ayala This note was generated using Crystal Clear Vision software. It may contain errors in wording, [...] of hy (more content not included)... Normal [employer] Tobacco Screening.on 022 Fall risk assessment b) One or more fall s in the last year [facility] 300 Work Phone: Tobacco use status CPHS b) No [facility] 300 [...] Transmission to [facility]; Last Updated By: [employer]; 09/15/2022 9:57:31 AM Generalized epilepsy Valproic Acid Level, Serum; Status:Active - Retrospective By Protocol Authorization; Requested for:[id number]; Perform:Lab Services - Lab To Draw (Blood Test); Due:[id number]; Last Updated By:Nedra Rivera; 09/15/2022 10:04:15 AM;Ordered; For:Generalized epilepsy; Ordered By:Jeanie Ayala; Health Maintenance Dermatology Referral Evaluation and Treatment Evaluate AND Treat Status: Complete Done: 15Sep2022 Ordered;For: Health Maintenance; Ordered By: Jeanie Ayala Performed: Due: 14Dec2022; Last Updated By: Jimbo Mcmanus; 09/15/2022 10:11:29 AM [facility] Hyperglycemia Comprehensive Metabolic Panel; Status:Active - Retrospective [...] 09/15/2022 10:18:12 AM 11-05-2021 AT 1115 WITH [facility] Patient Discussion/Summary F/U 3 MO CMP VALPORIC [...] OFF AND ON PALPITATIONS WANTS TO SEE UPPERS EDGE BURNISHER FOR OFF AND ON RASH Scores and [...] thirst, n (more content not included)... Normal [employer] Tobacco Screening.on 022 Fall risk assessment a) No falls within the last year [facility] Work Phone: Tobacco use status CPHS b) No [facility] Work Phone: CHEST 2 VIEW PA AND LATon CHEST 2 VIEW PA AND LAT Normal [facility] CT C Spine without Contrasto n 08-24-2022 CT Cervical spine WO contrast Normal [facility] Work Phone: CT HEAD WO CONTRASTon 2021 CT HEAD WO CONTRAST Normal [facility] CT Head without Contraston 1 10-24-2021 CT Head limited WO contrast Normal [facility] Work Phone: Complete Blood Count + Diffe rentialon 08-24-2022 Basophils/100 WBC (Bld) 0.2 % 0.0 - 2.0 [facility] Work Phone: Erythrocyte distribution width (RBC) [Ratio] 12.8 % See Below [facility] Work Phone: Comment on above: Reference Range: 11. 5 - 14.5 Hematocrit (Bld) [Volume fraction] 39.1 % See Below [facility] Work Phone: Comment on above: Reference Range: 36. 0 - 46.0 Hemoglobin (Bld) [Mass/Vol] 13.1 g/dL See Below [facility] Work Phone: Comment on above: Reference Range: 12. 0 - 16.0 Lymphocytes/100 WBC (Bld) 22.3 % See Below [facility] Work Phone: Comment on above: Reference Range: 13. 0 - 44.0 MCHC (RBC) [Mass/Vol] 33.5 g/dL See Below [facility] Work Phone: Comment on above: Reference Range: 32. 0 - 36.0 MCV (RBC) [Entitic vol] 88 fL 80 - 100 [facility] Work Phone: Monocytes/100 WBC (Bld) 8.4 % 2.0 - 10.0 [facility] Work Phone: Neutrophils/100 WBC (Bld) 66.3 % See Below [facility] Work Phone: Comment on above: Reference Range: 40. 0 - 80.0 Platelets (Bld) [#/Vol] 118 10*3/uL below low threshold 150 - 450 [facility] Work Phone: Comment on above: no platelet clumps s een RBC (Bld) [#/Vol] 4.45 {x10E12/L} See Below [facility] Work Phone: Comment on above: Reference Range: 4.0 0 - 5.20 WBC (Bld) [#/Vol] 5.8 10*3/uL 4.4 - 11.3 [facility] Work Phone: Complete Blood Count + Differential 0.01 {x10E9/L} See Below [facility] Work Phone: Comment on above: Reference Range: 0.0 0 - 0.10 Complete Blood Count + Differential 0.11 {x10E9/L} See Below [facility] Work Phone: Comment on above: Reference Range: 0.0 0 - 0.70 Complete Blood Count + Differential 0.49 {x10E9/L} See Below [facility] Work Phone: Comment on above: Reference Range: 0.1 0 - 1.00 Complete Blood Count + Differential 1.30 {x10E9/L} See Below [facility] Work Phone: Comment on above: Reference Range: 1.2 0 - 4.80 Complete Blood Count + Differential 3.87 {x10E9/L} See Below [facility] Work Phone: Comment on above: Reference Range: 1.2 0 - 7.70 Percent differential counts (%) should be interpreted in the context of the absolute cell counts (cells/L). Complete Blood Count + Differential 1.9 % 0.0 - 6.0 [facility] Work Phone: Complete Blood Count + Differential 0.9 % 0.0 - 0.9 [facility] Work Phone: Comment on above: Immature Granulocyte Count (IG) includes promyelocytes, myelocytes and metamyelocytes but does not include bands. Percent differential counts (%) should be interpreted in the context of the absolute cell counts (cells/L). Laboratory - Chemistry and C hemistry - challengeon 08-24-2022 Albumin BCP dye [Mass/Vol] 4.0 g/dL 3.4 - 5.0 [facility] Work Phone: ALP [Catalytic activity/Vol] 63 U/L 33 - 110 [facility] Work Phone: ALT With P-5'-P [Catalytic activity/Vol] 23 U/L 7 - 45 [facility] Work Phone: Comment on above: Patients treated wit h Sulfasalazine may generate falsely decreased results for ALT. Anion gap [Moles/Vol] 12 mmol/L 10 - 20 [facility] Work Phone: AST With P-5'-P [Catalytic activity/Vol] 21 U/L 9 - 39 [facility] Work Phone: Bilirubin [Mass/Vol] 0.3 mg/dL 0.0 - 1.2 [facility] Work Phone: Calcium [Mass/Vol] 9.2 mg/dL 8.6 - 10.3 [facility] Work Phone: Chloride [Moles/Vol] 102 mmol/L 98 - 107 [facility] Work Phone: CO2 [Moles/Vol] 30 mmol/L 21 - 32 [facility] Work Phone: Creatinine [Mass/Vol] 1.30 mg/dL above high threshold See Below [facility] Work Phone: Comment on above: Reference Range: 0.5 0 - 1.05 Glucose [Mass/Vol] 108 mg/dL above high threshold 74 - 99 [facility] Work Phone: Potassium [Moles/Vol] 3.4 mmol/L below low threshold 3.5 - 5.3 [facility] Work Phone: Protein [Mass/Vol] 6.6 g/dL 6.4 - 8.2 [facility] Work Phone: Sodium [Moles/Vol] 141 mmol/L 136 - 145 [facility] Work Phone: Urea nitrogen [Mass/Vol] 21 mg/dL 6 - 23 [facility] Work Phone: Lorazepam Level, Serumon LORazepam [Mass/Vol] 26 ng/mL below low threshold 50-240 [facility] Work Phone: Comment on above: INTERPRETIVE INFORMA TION: LorazepamDose-Related Range:50-240 ng/mL - Dose (Adult): 1-10 mg/dToxic: Greater than 300 ng/mLAdverse effects may include respiratory depression, sedation, dizziness, weakness and lethargy.Performed By: [employer] [place] [id number] Director: Ismael Castellon MD, PhD No Panel Informationon 08-24 50 {mL/min/1.73m2} Abnormal >90 [facility] Medicine Work Phone: Comment on above: CALCULATIONS OF FRIEDA MATED GFR ARE PERFORMED USING THE 2020 CKD-EPI STUDY REFIT EQUATION WITHOUT THE RACE VARIABLE FOR THE IDMS-TRACEABLE CREATININE METHODS.https://jasn.asnjournals.org/content/early/ N.1747828989 Provider Note - ED v3on Provider Note - ED v3 Normal [facility] Radiologyon 08-24-2022 XR Chest 2 Views Normal [facility] Work Phone: XR Shoulder 2 Views Normal [facility] Medicine Work Phone: Risk Screen - Adult Emergenc yon 08-24-2022 Risk Screen - Adult Emergency Normal [facility] SHOULDER, CMPLT, MIN 2 VIEWS on 08-24-2022 SHOULDER, CMPLT, MIN [address] [facility] Triage - EDon 08-24-2022 Triage - ED Normal [facility] Uric Acid, Serumon Urate [Mass/Vol] 5.5 mg/dL 2.3 - 6.7 [facility] Work Phone: Comment on above: Venipuncture immedia tely after or during the administration of Metamizole may lead to falsely low results. Testing should be performed immediately prior to Metamizole dosing. Valproic Acid Level, Serumon 08-24-2022 Valproate [Mass/Vol] 48 ug/mL below low threshold 50 - 100 [facility] Medicine Work Phone: Established Visit [...] her facility. This note was generated using Crystal Clear Vision software. It may contain errors in wording, [...] a) No falls within the last year [facility] 300 Work Phone: Tobacco use status [facility] b) No -[facility] 300 Work Phone: [...] ORDER IN PATIENT FOLDER SO BASIM AT [facility] CAN MAKE APPT WITH ALTAGR[facility]. APPARENTLY [facility] HAS A CONTRACT WITH [facility] AND COME TO PATIENT. Knee pain [...] excessive th (more content not included)... Normal [employer] Tobacco Screening.on 022 Fall risk assessment a) No falls within the last year [facility] Work Phone: Tobacco use status CP b) No [facility] Work Phone: AMB - Narrative Note-Distres s Screen Follow Upon 08-11-2022 AMB - Narrative Note-Distress Screen Follow Up [facility] AMB - Narrative Note-Distres s Screen Follow Upon 08-06-2022 AMB - Narrative Note-Distress Screen Follow Up [facility] Note - Education Adul ton 08-06-2022 Clinic Note - Education Adult [facility] Note - Heme Onc-Follo w Up [facility] 08-06-2022 Clinic Note - Heme Onc-Follow Up Visit [facility] Note - Intakeon 08-06 Clinic Note - Intake [facility] Note - Heme Onc-Follo w Up [facility] 07-28-2022 Clinic Note - Heme Onc-Follow Up Visit This report has been cancelled. [facility] Complete Blood Count + Diffe rentialon 07-22-2022 Erythrocyte distribution width (RBC) [Ratio] 13.8 % See Below [facility] 300 Work Phone: Comment on above: Reference Range: 11. 5 - 14.5 Hematocrit (Bld) [Volume fraction] 39.0 % See Below [facility] 300 Work Phone: Comment on above: Reference Range: 36. 0 - 46.0 Hemoglobin (Bld) [Mass/Vol] 13.0 g/dL See Below [facility] 300 Work Phone: Comment on above: Reference Range: 12. 0 - 16.0 MCHC (RBC) [Mass/Vol] 33.4 g/dL See Below [facility] 300 Work Phone: Comment on above: Reference Range: 32. 0 - 36.0 MCV (RBC) [Entitic vol] 88 fL 80 - 100 [facility] 300 Work Phone: Platelets (Bld) [#/Vol] 106 10*3/uL below low threshold 150 - 450 [facility] 300 Work Phone: RBC (Bld) [#/Vol] 4.42 {x10E12/L} See Below [facility] 300 Work Phone: Comment on above: Reference Range: 4.0 0 - 5.20 WBC (Bld) [#/Vol] 5.4 10*3/uL 4.4 - 11.3 [facility] 300 Work Phone: Complete Blood Count + Differential SEE MANUAL DIFF [facility] 300 Work Phone: Complete Blood Count + Differential 0.1 {/100_WBC} [facility] 300 Work Phone: Laboratory - Chemistry and C hemistry - challengeon 07-22-2022 Albumin BCP dye [Mass/Vol] 3.8 g/dL 3.4 - 5.0 [facility] 300 Work Phone: ALP [Catalytic activity/Vol] 73 U/L 33 - 110 [facility] 300 Work Phone: ALT With P-5'-P [Catalytic activity/Vol] 17 U/L 7 - 45 [facility] 300 Work Phone: Comment on above: Patients treated wit h Sulfasalazine may generate falsely decreased results for ALT. Anion gap [Moles/Vol] 11 mmol/L 10 - 20 [facility] 300 Work Phone: AST With P-5'-P [Catalytic activity/Vol] 21 U/L 9 - 39 [facility] 300 Work Phone: Bilirubin [Mass/Vol] 0.3 mg/dL 0.0 - 1.2 [facility] 300 Work Phone: Calcium [Mass/Vol] 8.7 mg/dL 8.6 - 10.3 [facility] 300 Work Phone: Chloride [Moles/Vol] 101 mmol/L 98 - 107 [facility] 300 Work Phone: CO2 [Moles/Vol] 31 mmol/L 21 - 32 [facility] 300 Work Phone: Creatinine [Mass/Vol] 1.20 mg/dL above high threshold See Below [facility] 300 Work Phone: Comment on above: Reference Range: 0.5 0 - 1.05 Glucose [Mass/Vol] 110 mg/dL above high threshold 74 - 99 [facility] 300 Work Phone: Potassium [Moles/Vol] 3.9 mmol/L 3.5 - 5.[address] [facility] 300 Work Phone: Protein [Mass/Vol] 5.9 g/dL below low threshold 6.4 - 8.2 [facility] 300 Work Phone: Sodium [Moles/Vol] 139 mmol/L 136 - 145 [facility] 300 Work Phone: Urea nitrogen [Mass/Vol] 26 mg/dL above high threshold 6 - 23 [facility] 300 Work Phone: Laboratory - Hematology and Cell countson 07-22-2022 Basophils/100 WBC (Bld) 0.0 % 0.0 - 2.0 [facility] 300 Work Phone: Lymphocytes/100 WBC (Bld) 35.0 % See Below [facility] 300 Work Phone: Comment on above: Reference Range: 13. 0 - 44.0 Monocytes/100 WBC (Bld) 5.0 % 2.0 - 10.0 [facility] 300 Work Phone: No Panel Informationon 07-22 NORMAL [facility] 300 Work Phone: 0.00 {x10E9/L} See Below [facility] 300 Work Phone: Comment on above: Reference Range: 0.0 0 - 0.10 Reference Range: 0.0 0 - 0.70 0.27 {x10E9/L} See Below [facility] 300 Work Phone: Comment on above: Reference Range: 0.1 0 - 1.00 1.89 {x10E9/L} See Below [facility] Work Phone: Comment on above: Reference Range: 1.2 0 - 4.80 3.24 {x10E9/L} See Below [facility] Work Phone: Comment on above: Reference Range: 1.2 0 - 7.00 Reference Range: 1.2 0 - 7.70 0.0 % 0.0 - 6.0 [facility] 300 Work Phone: 60.0 % See Below [facility] 300 Work Phone: Comment on above: Reference Range: 40. 0 - 80.0 Percent differential counts (%) should be interpreted in the context of the absolute cell counts (cells/L). 56 {mL/min/1.73m2} Abnormal >90 [facility] 300 Work Phone: Comment on above: CALCULATIONS OF FRIEDA MATED GFR ARE PERFORMED USING THE 2020 CKD-EPI STUDY REFIT EQUATION WITHOUT THE RACE VARIABLE FOR THE IDMS-TRACEABLE CREATININE METHODS.https://jasn.asnjournals.org/content/early// N.7606299649 Office Visit (Internal Medic ine)on 07-21-2022 Follow-up [...] to [facility]; Last Updated By: Benny [employer]; 07/21/2022 9:35:48 AM Generalized epilepsy Start: Clotrimazole-Betamethas one 1-0.05 % External Cream; APPLY AND RUB IN A THIN FILM TO AFFECTED AREAS TWICE DAILY.(AM AND PM) Rx By: Jeanie Ayala; Dispense: 0 Days ; #:1 X 45 GM Tube; Refill: 0;For: Generalized epilepsy; SHARLENE = N; Verified Transmission to [facility]; Last Updated By: Meghana Zapata; 07/21/2022 9:31:34 AM Start: Metoprolol Succinate ER 25 MG Oral Tablet Extended Release 24 Hour (Toprol XL); Take 1 tablet daily Rx By: Jeanie Ayala; Dispense: 30 Days ; #:30 Tablet; Refill: 11;For: Generalized epilepsy; SHARLENE = N; Verified Transmission to [facility]; Last Updated By: Meghana Zapata; 07/21/2022 [...] gait; Ordered By: Reanna Kemp Performed: Due: 13Oct2022; Last Updated By: Cornelia Domingo; 07/21/2022 9:44:56 AM PRINTED ORDER AND PUT IN PATIENT FOLDER FOR [facility] Patient Discussion/Summary F/U 1 MO Provider [...] WITH SOME ITCH Scores and Scales PHQ-9 [id number] 11:48AM PHQ-9 #1. Little interest or pleasure [...] dizziness, n (more content not included)... Normal [employer] Tobacco Screening.on Fall risk assessment a) No falls within the last year [facility] Work Phone: Tobacco use status CPHS b) No [facility] Work Phone: Initial Visit (Orthopaedic S urgery)on 07-15-2022 Initial Visit (Orthopaedic Surgery) Diagnoses/Problems Assessed [...] of care. This note was generated using Crystal Clear Vision software. It may contain errors in wording, punctuation or spelling. Provider Impressions History, symptoms and assessment consistent with bilateral knee pain, frequent falls and ataxic gait. Chief Complaint [employer] BILAT KNEE PAIN PT DOES NOT WALK MUCH DUE TO SEIZURES REFERRAL: DR FARIA PAIN 05/27 GOING ON FOR MONTHS History of Present [...] of blood (more content not included)... Normal [employer] Tobacco Screening.on 022 Fall risk assessment b) One or more fall s in the last year [facility] 300 Work Phone: Tobacco use status CPHS b) No [facility] 300 Work Phone: Cult, Urineon 07-12-2022 Bacteria identified Cx Nom (U) [facility] 300 Work Phone: Urinalysison 07-12-2022 Color (U) Straw See Below [facility] Medicine Work Phone: Comment on above: Reference Range: STR AW,YELLOW Glucose Ql (U) Negative NEGATIVE [facility] Medicine Work Phone: Ketones Ql (U) Negative NEGATIVE [facility] Medicine Work Phone: Leukocyte esterase Test strip Ql (U) Negative NEGATIVE [facility] Work Phone: pH (U) 6.0 [pH] 5.0 - 8.0 [facility] Work Phone: Protein (U) [Mass/Vol] Negative NEGATIVE [facility] Work Phone: RBC (U) [#/Vol] Negative NEGATIVE [facility] Medicine Work Phone: Specific gravity (U) [Rel density] 1.009 1 See Below [facility] Work Phone: Comment on above: Reference Range: 1.0 05 - 1.035 Urinalysis Negative NEGATIVE [facility] Work Phone: Urinalysis <2.0 0.0 - 1.9 [facility] Work Phone: Urinalysis CLEAR CLEAR [facility] Medicine Work Phone: Falls Screening (Age 18+)on 06-30-2022 Fall risk assessment b) One or more fall s in the last year [facility] Work Phone: Tobacco use status CPHS b) No [facility] Work Phone: Office Visit (Internal Medic ine)on 06-30-2022 Follow-up visit Diagnoses/Problems Assessed Anxiety (300.00) (F41.9) Tinea (110.9) (B35.9) Knee pain (719.46) (M25.569) Tremor (781.0) (R25.1) Orders Anxiety Renew: LORazepam 1 MG Oral Tablet; TAKE 2 TABLET Twice daily Rx By: Jeanie Ayala; Dispense: 30 Days ; #:120 Tablet; Refill: 0;For: Anxiety; SHARLENE = N; [facility]; Last Updated By: Benny Naartjie; 06/30/2022 1:22:36 PM Knee pain Orthopedic - General Referral Evaluation and Treatment Evaluate AND Treat Status: Complete Done: [id number] Ordered;For: Knee pain; Ordered By: Jeanie Ayala Performed: Due: [id number]; Last Updated By: Jimbo Mcmanus; 06/30/2022 1:31:19 PM FRANCES LANGE 9-15 AT 145 Tinea Start: Clotrimazole-Betamethas one 1-0.05 % External Cream; APPLY AND RUB IN A THIN FILM TO AFFECTED AREAS TWICE DAILY.(AM AND PM) Rx By: Jeanie Ayala; Dispense: 0 Days ; #:1 X 15 GM Tube; Refill: 2;For: Tinea; SHARLENE = N; Verified Transmission to [facility]; Last Updated By: [facility] [place]; 06/30/2022 1:22:41 PM Patient Discussion/Summary F/U 1 [...] Problems Abdo (more content not included)... Normal [employer] Tobacco Screening.on 022 Fall risk assessment a) No falls within the last year [facility] Medicine Work Phone: Tobacco use status CP b) No [facility] Work Phone: CT CERVICAL [...] on WedMay 06, 2022 7:48:57 PM EDT [facility] Comment on above: Order Comment: [...] process. Workstation ID: [id number] Dictated by: JEFF RPASAD on WedMay 06, 2022 7:44:58 PM EDT Transcribed by: JEFF PRASAD on WedMay 06, 2022 7:44:58 PM EDT Finalized by: JEFF PRASAD on WedMay 06, 2022 7:44:58 PM EDT [facility] Comment on above: Order Comment: [...] of the lumbar spine. There are 5 [id number] lumbar type vertebrae. There is appropriate alignment [...] on WedMay 06, 2022 8:07:27 PM EDT [facility] Comment on above: Order Comment: Injur y/Trauma or Illness?:Injury/Trauma How long have you had these symptoms (acute/chronic)?:Acute Reason for exam?:Fall, low back pain History of cancer?:n Surgeries, chemotherapy, or radiation?:yes Type of Exam?:Initial Mechanism of injury?:fall Tobacco Screening.on Fall risk assessment a) No falls within the last year [facility] Medicine Work Phone: Tobacco use status [facility] b) No [facility] Medicine Work Phone: Tobacco Screening.on Fall risk assessment a) No falls within the last year [facility] Medicine Work Phone: Tobacco use status [facility] b) No [facility] Work Phone: Mamm - Screening Mammogram w / Tomosynthesison 03-06-2022 MG Breast Screening Normal [facility] [address] Work Phone: Radiologyon 03-06-2022 XR Knee 3 Views Please click on the link to view the study images Normal [facility] [address] Work Phone: Tobacco Screening.on Fall risk assessment b) One or more fall s in the last year [facility] Work Phone: Tobacco use status [facility] b) No [facility] Medicine Work Phone: Tobacco Screening.on Fall risk assessment b) One or more fall s in the last year [facility] Work Phone: Tobacco use status [facility] b) No [facility] Work Phone: Ammonia, Plasmaon 01-23-2022 Ammonia (P) [Moles/Vol] 22 umol/L [facility] Work Phone: Comment on above: .REFERENCE VALUESDAY 1 to DAY 7 <110DAY 8 to DAY 14 < 90DAY 15 to ADULT 16-53 Complete Blood Count + Diffe rentialon 01-23-2022 Basophils/100 WBC (Bld) 0.2 % 0.0 - 2.0 [facility] Work Phone: Erythrocyte distribution width (RBC) [Ratio] 13.7 % See Below [facility] Work Phone: Comment on above: Reference Range: 11. 5 - 14.5 Hematocrit (Bld) [Volume fraction] 40.3 % See Below [facility] Work Phone: Comment on above: Reference Range: 36. 0 - 46.0 Hemoglobin (Bld) [Mass/Vol] 13.5 g/dL See Below [facility] Work Phone: Comment on above: Reference Range: 12. 0 - 16.0 Lymphocytes/100 WBC (Bld) 26.0 % See Below [facility] Work Phone: Comment on above: Reference Range: 13. 0 - 44.0 MCHC (RBC) [Mass/Vol] 33.5 g/dL See Below [facility] Work Phone: Comment on above: Reference Range: 32. 0 - 36.0 MCV (RBC) [Entitic vol] 88 fL 80 - 100 [facility] Work Phone: Monocytes/100 WBC (Bld) 7.6 % 2.0 - 10.0 [facility] Work Phone: Neutrophils/100 WBC (Bld) 64.3 % See Below [facility] Work Phone: Comment on above: Reference Range: 40. 0 - 80.0 Platelets (Bld) [#/Vol] 113 10*3/uL below low threshold 150 - 450 [facility] Work Phone: RBC (Bld) [#/Vol] 4.58 {x10E12/L} See Below [facility] Work Phone: Comment on above: Reference Range: 4.0 0 - 5.20 WBC (Bld) [#/Vol] 5.4 10*3/uL 4.4 - 11.3 [facility] Work Phone: Complete Blood Count + Differential 0.00 {x10E9/L} See Below [facility] Work Phone: Comment on above: Reference Range: 0.0 0 - 0.10 Complete Blood Count + Differential 0.10 {x10E9/L} See Below [facility] Work Phone: Comment on above: Reference Range: 0.0 0 - 0.70 Complete Blood Count + Differential 0.40 {x10E9/L} See Below [facility] Work Phone: Comment on above: Reference Range: 0.1 0 - 1.00 Complete Blood Count + Differential 1.40 {x10E9/L} See Below [facility] Work Phone: Comment on above: Reference Range: 1.2 0 - 4.80 Complete Blood Count + Differential 3.50 {x10E9/L} See Below [facility] Work Phone: Comment on above: Reference Range: 1.2 0 - 7.70 Percent differential counts (%) should be interpreted in the context of the absolute cell counts (cells/L). Complete Blood Count + Differential 1.9 % 0.0 - 6.0 [facility] Work Phone: Complete Blood Count + Differential 0.2 {/100_WBC} [facility] Work Phone: Laboratory - Chemistry and C hemistry - challengeon 01-23-2022 Albumin BCP dye [Mass/Vol] 4.1 g/dL 3.4 - 5.0 [facility] Work Phone: ALP [Catalytic activity/Vol] 76 U/L 33 - 110 [facility] Work Phone: ALT With P-5'-P [Catalytic activity/Vol] 21 U/L 7 - 45 [facility] Work Phone: Comment on above: Patients treated wit h Sulfasalazine may generate falsely decreased results for ALT. Anion gap [Moles/Vol] 12 mmol/L 10 - 20 [facility] Work Phone: AST With P-5'-P [Catalytic activity/Vol] 23 U/L 9 - 39 [facility] Work Phone: Bilirubin [Mass/Vol] 0.4 mg/dL 0.0 - 1.2 [facility] Work Phone: Calcium [Mass/Vol] 8.9 mg/dL 8.6 - 10.3 [facility] Work Phone: Chloride [Moles/Vol] 100 mmol/L 98 - 107 [facility] Work Phone: CO2 [Moles/Vol] 30 mmol/L 21 - 32 [facility] Internal Medicine Work Phone: Creatinine [Mass/Vol] 1.12 mg/dL above high threshold See Below [facility] Work Phone: Comment on above: Reference Range: 0.5 0 - 1.05 Glucose [Mass/Vol] 111 mg/dL above high threshold 74 - 99 [facility] Work Phone: Potassium [Moles/Vol] 3.5 mmol/L 3.5 - 5.3 [facility] Work Phone: Protein [Mass/Vol] 6.5 g/dL 6.4 - 8.2 [facility] Work Phone: Sodium [Moles/Vol] 138 mmol/L 136 - 145 [facility] Work Phone: Urea nitrogen [Mass/Vol] 17 mg/dL 6 - 23 [facility] Work Phone: No Panel Informationon 01-23 61 {mL/min/1.73m2} >90 [facility] Work Phone: Comment on above: CALCULATIONS OF FRIEDA MATED GFR ARE PERFORMED USING THE 2020 CKD-EPI STUDY REFIT EQUATION WITHOUT THE RACE VARIABLE FOR THE IDMS-TRACEABLE CREATININE METHODS.https://jasn.asnjournals.org/content/early/ N.0215268609 Valproic Acid Level, Serumon 01-23-2022 Valproate [Mass/Vol] 56 ug/mL 50 - 100 [facility] Work Phone: Vitamin B12, Serumon 022 Cobalamin (Vitamin B12) [Mass/Vol] 1085 pg/mL above high threshold 211 - 911 [facility] Work Phone: No Panel Informationon 01-22 [facility] Work Phone: [email or web address] ?[id number] [email or web address]} [facility] Work Phone: [facility] Work Phone: Coronavirus 2019 RNA by PCR, Screening Asymptomticon 01-21-2022 Coronavirus 2019 RNA by PCR, Screening Asymptomtic Not detected Normal See Below [facility] Work Phone: Comment on above: [...] make patient management decisions.Fact sheet for providers: https://www.fda.gov/media/580768/downloadFact sheet for patients: https://www.fda.gov/media/226131/downloadThis test has received FDA Emergency Use Authorization (EUA) and has been verified by [facility] ([facility]). This test is only authorized for the duration of time that circumstances exist to justify the authorization of the emergency use of in vitro diagnostic tests for the detection of SARS-CoV-2 virus and/or diagnosis of COVID-19 infection under section 564(b)(1) of the Act, 21 U.S.C. 360bbb-3(b)(1), unless the authorization is terminated or revoked sooner. [facility] is certified under CLIA-88 as qualified to perform high complexity testing. Testing is performed in the [facility] laboratories located at [address] [place] [address]. Tobacco Screening.on 022 Adult depression screening assessment Yes [facility] Work Phone: Fall risk assessment a) No falls within the last year [facility] Work Phone: Tobacco use status CPHS b) No [facility] Work Phone: Tobacco Screening. 3-Nearly every day [facility] Work Phone: Tobacco Screening. 2-More than half the days [facility] Work Phone: Tobacco Screening. 0-Not at all [facility] Work Phone: Tobacco Screening. Extremely Difficult [facility] Work Phone: Xray Bone Density, Dexa 1 or More Siteson 12-26-2021 DXA Bone [Mass/Area] Bone density Normal [facility] Work Phone: Laboratory - Chemistry and C hemistry - challengeon 12-25-2021 Albumin BCP dye [Mass/Vol] 4.0 g/dL 3.4 - 5.0 [facility] Work Phone: ALP [Catalytic activity/Vol] 62 U/L 33 - 110 [facility] Work Phone: ALT With P-5'-P [Catalytic activity/Vol] 18 U/L 7 - 45 [facility] Work Phone: Comment on above: Patients treated wit h Sulfasalazine may generate falsely decreased results for ALT. Anion gap [Moles/Vol] 13 mmol/L 10 - 20 [facility] Work Phone: AST With P-5'-P [Catalytic activity/Vol] 21 U/L 9 - 39 [facility] Work Phone: Bilirubin [Mass/Vol] 0.4 mg/dL 0.0 - 1.2 [facility] Work Phone: Calcium [Mass/Vol] 8.7 mg/dL 8.6 - 10.3 [facility] Work Phone: Chloride [Moles/Vol] 100 mmol/L 98 - 107 [facility] Work Phone: CO2 [Moles/Vol] 28 mmol/L 21 - 32 [facility] Work Phone: Creatinine [Mass/Vol] 1.19 mg/dL above high threshold See Below [facility] Work Phone: Comment on above: Reference Range: 0.5 0 - 1.05 Glucose [Mass/Vol] 88 mg/dL 74 - 99 [facility] Work Phone: Potassium [Moles/Vol] 4.0 mmol/L 3.5 - 5.3 [facility] Work Phone: Protein [Mass/Vol] 6.6 g/dL 6.4 - 8.2 [facility] Work Phone: Sodium [Moles/Vol] 137 mmol/L 136 - 145 [facility] Work Phone: Urea nitrogen [Mass/Vol] 23 mg/dL 6 - 23 [facility] Work Phone: NM Biliary with EF w/wo CCKo n 12-25-2021 NM Biliary with EF w/wo CCK Normal [facility] Work Phone: No Panel Informationon 12-25 56 {mL/min/1.73m2} Abnormal >90 [facility] Work Phone: Comment on above: CALCULATIONS OF FRIEDA MATED GFR ARE PERFORMED USING THE 2020 CKD-EPI STUDY REFIT EQUATION WITHOUT THE RACE VARIABLE FOR THE IDMS-TRACEABLE CREATININE METHODS.https://jasn.asnjournals.org/content/early// N.4699369788 Valproic Acid Level, Serumon 12-25-2021 Valproate [Mass/Vol] 50 ug/mL 50 - 100 [facility] Work Phone: Tobacco Screening.on 022 Fall risk assessment a) No falls within the last year [facility] Work Phone: Tobacco use status CPHS b) No [facility] Work Phone: Radiologyon 12-15-2021 US Liver Normal [facility] Work Phone: Complete Blood Count + Diffe rentialon 12-13-2021 Erythrocyte distribution width (RBC) [Ratio] 13.8 % See Below [facility] Work Phone: Comment on above: Reference Range: 11. 5 - 14.5 Hematocrit (Bld) [Volume fraction] 39.8 % See Below [facility] Work Phone: Comment on above: Reference Range: 36. 0 - 46.0 Hemoglobin (Bld) [Mass/Vol] 13.3 g/dL See Below [facility] Work Phone: Comment on above: Reference Range: 12. 0 - 16.0 MCHC (RBC) [Mass/Vol] 33.5 g/dL See Below [facility] Work Phone: Comment on above: Reference Range: 32. 0 - 36.0 MCV (RBC) [Entitic vol] 88 fL 80 - 100 [facility] Work Phone: Platelets (Bld) [#/Vol] 141 10*3/uL below low threshold 150 - 450 [facility] Work Phone: RBC (Bld) [#/Vol] 4.53 {x10E12/L} See Below [facility] Work Phone: Comment on above: Reference Range: 4.0 0 - 5.20 WBC (Bld) [#/Vol] 8.5 10*3/uL 4.4 - 11.3 [facility] Work Phone: Complete Blood Count + Differential SEE MANUAL DIFF [facility] Work Phone: Complete Blood Count + Differential 0.1 {/100_WBC} [facility] Work Phone: Laboratory - Chemistry and C hemistry - challengeon 12-13-2021 Albumin BCP dye [Mass/Vol] 4.3 g/dL 3.4 - 5.0 [facility] Work Phone: ALP [Catalytic activity/Vol] 65 U/L 33 - 110 [facility] Work Phone: ALT With P-5'-P [Catalytic activity/Vol] 23 U/L 7 - 45 [facility] Work Phone: Comment on above: Patients treated wit h Sulfasalazine may generate falsely decreased results for ALT. Anion gap [Moles/Vol] 17 mmol/L 10 - 20 [facility] Work Phone: AST With P-5'-P [Catalytic activity/Vol] 29 U/L 9 - 39 [facility] Work Phone: Bilirubin [Mass/Vol] 0.5 mg/dL 0.0 - 1.2 [facility] Work Phone: Calcium [Mass/Vol] 9.2 mg/dL 8.6 - 10.3 [facility] Work Phone: Chloride [Moles/Vol] 98 mmol/L 98 - 107 [facility] Work Phone: CO2 [Moles/Vol] 27 mmol/L 21 - 32 [facility] Work Phone: Creatinine [Mass/Vol] 1.25 mg/dL above high threshold See Below [facility] Work Phone: Comment on above: Reference Range: 0.5 0 - 1.05 Glucose [Mass/Vol] 121 mg/dL above high threshold 74 - 99 [facility] Work Phone: Potassium [Moles/Vol] 3.3 mmol/L below low threshold 3.5 - 5.3 [facility] Work Phone: Protein [Mass/Vol] 6.6 g/dL 6.4 - 8.2 [facility] Work Phone: Sodium [Moles/Vol] 139 mmol/L 136 - 145 [facility] Work Phone: Urea nitrogen [Mass/Vol] 22 mg/dL 6 - 23 [facility] Work Phone: Laboratory - Hematology and Cell countson 12-13-2021 Basophils/100 WBC (Bld) 0.0 % 0.0 - 2.0 [facility] Work Phone: Lymphocytes/100 WBC (Bld) 20.0 % See Below [facility] Work Phone: Comment on above: Reference Range: 13. 0 - 44.0 Monocytes/100 WBC (Bld) 2.0 % 2.0 - 10.0 [facility] Work Phone: No Panel Informationon 12-13 53 {mL/min/1.73m2} Abnormal >90 [facility] Work Phone: Comment on above: CALCULATIONS OF FRIEDA MATED GFR ARE PERFORMED USING THE 2020 CKD-EPI STUDY REFIT EQUATION WITHOUT THE RACE VARIABLE FOR THE IDMS-TRACEABLE CREATININE METHODS.https://jasn.asnjournals.org/content/early// N.4172190351 0.00 {x10E9/L} See Below [facility] [...] - 7.70 0.0 % 0.0 - 6.0 [facility] Work Phone: 78.0 % See Below [facility] Work Phone: Comment on above: Reference Range: 40. 0 - 80.0 Percent differential counts (%) should be interpreted in the context of the absolute cell counts (cells/L). NORMAL [facility] Work Phone: Valproic Acid Level, Serumon 12-13-2021 Valproate [Mass/Vol] 23 ug/mL below low threshold 50 - 100 [facility] Work Phone: Tobacco Screening.on 022 Fall risk assessment b) One or more fall s in the last year [facility] Work Phone: Tobacco use status CP b) No [facility] Work Phone: Complete Blood Count + Diffe rentialon 12-05-2021 Basophils/100 WBC (Bld) 0.3 % 0.0 - 2.0 [facility] Work Phone: Erythrocyte distribution width (RBC) [Ratio] 13.6 % See Below [facility] Work Phone: Comment on above: Reference Range: 11. 5 - 14.5 Hematocrit (Bld) [Volume fraction] 37.3 % See Below [facility] Work Phone: Comment on above: Reference Range: 36. 0 - 46.0 Hemoglobin (Bld) [Mass/Vol] 12.4 g/dL See Below [facility] Work Phone: Comment on above: Reference Range: 12. 0 - 16.0 Lymphocytes/100 WBC (Bld) 18.4 % See Below [facility] Work Phone: Comment on above: Reference Range: 13. 0 - 44.0 MCHC (RBC) [Mass/Vol] 33.2 g/dL See Below [facility] Work Phone: Comment on above: Reference Range: 32. 0 - 36.0 MCV (RBC) [Entitic vol] 89 fL 80 - 100 [facility] Work Phone: Monocytes/100 WBC (Bld) 8.6 % 2.0 - 10.0 [facility] Work Phone: Neutrophils/100 WBC (Bld) 71.1 % See Below [facility] Work Phone: Comment on above: Reference Range: 40. 0 - 80.0 Platelets (Bld) [#/Vol] 111 10*3/uL below low threshold 150 - 450 [facility] Work Phone: RBC (Bld) [#/Vol] 4.18 {x10E12/L} See Below [facility] Work Phone: Comment on above: Reference Range: 4.0 0 - 5.20 WBC (Bld) [#/Vol] 5.4 10*3/uL 4.4 - 11.3 [facility] Work Phone: Complete Blood Count + Differential 0.00 {x10E9/L} See Below [facility] Work Phone: Comment on above: Reference Range: 0.0 0 - 0.10 Complete Blood Count + Differential 0.10 {x10E9/L} See Below [facility] Work Phone: Comment on above: Reference Range: 0.0 0 - 0.70 Complete Blood Count + Differential 0.50 {x10E9/L} See Below [facility] Work Phone: Comment on above: Reference Range: 0.1 0 - 1.00 Complete Blood Count + Differential 1.00 {x10E9/L} below low threshold See Below [facility] Work Phone: Comment on above: Reference Range: 1.2 0 - 4.80 Complete Blood Count + Differential 3.90 {x10E9/L} See Below [facility] Work Phone: Comment on above: Reference Range: 1.2 0 - 7.70 Percent differential counts (%) should be interpreted in the context of the absolute cell counts (cells/L). Complete Blood Count + Differential 1.6 % 0.0 - 6.0 [facility] Work Phone: Complete Blood Count + Differential 0.1 {/100_WBC} [facility] Work Phone: Laboratory - Chemistry and C hemistry - challengeon 12-05-2021 Albumin BCP dye [Mass/Vol] 3.9 g/dL 3.4 - 5.0 [facility] Work Phone: ALP [Catalytic activity/Vol] 68 U/L 33 - 110 [facility] Work Phone: ALT With P-5'-P [Catalytic activity/Vol] 15 U/L 7 - 45 [facility] Work Phone: Comment on above: Patients treated wit h Sulfasalazine may generate falsely decreased results for ALT. Anion gap [Moles/Vol] 14 mmol/L 10 - 20 [facility] Work Phone: AST With P-5'-P [Catalytic activity/Vol] 19 U/L 9 - 39 [facility] Work Phone: Bilirubin [Mass/Vol] 0.3 mg/dL 0.0 - 1.2 [facility] Work Phone: Calcium [Mass/Vol] 7.9 mg/dL below low threshold 8.6 - 10.3 [facility] Work Phone: Chloride [Moles/Vol] 101 mmol/L 98 - 107 [facility] Work Phone: CO2 [Moles/Vol] 26 mmol/L 21 - 32 [facility] Work Phone: Creatinine [Mass/Vol] 1.33 mg/dL above high threshold See Below [facility] Work Phone: Comment on above: Reference Range: 0.5 0 - 1.05 Glucose [Mass/Vol] 106 mg/dL above high threshold 74 - 99 [facility] Work Phone: Potassium [Moles/Vol] 3.1 mmol/L below low threshold 3.5 - 5.3 [facility] Work Phone: Protein [Mass/Vol] 6.1 g/dL below low threshold 6.4 - 8.2 [facility] Work Phone: Sodium [Moles/Vol] 138 mmol/L 136 - 145 [facility] Work Phone: Urea nitrogen [Mass/Vol] 18 mg/dL 6 - 23 [facility] Work Phone: Lactate, Levelon 12-05-2021 Lactate [Moles/Vol] 1.2 mmol/L 0.4 - 2.0 [facility] Work Phone: Comment on above: Venipuncture immedia tely after or during the administration of Metamizole may lead to falsely low results. Testing should be performed immediately prior to Metamizole dosing. Lactate [Moles/Vol] 2.9 mmol/L above high threshold 0.4 - 2.0 [facility] Work Phone: Comment on above: Venipuncture immedia tely after or during the administration of Metamizole may lead to falsely low results. Testing should be performed immediately prior to Metamizole dosing. Lipase, Serumon 12-05-2021 Lipase [Catalytic activity/Vol] 42 U/L 9 - 82 [facility] Work Phone: Comment on above: Venipuncture immedia tely after or during the administration of Metamizole may lead to falsely low results. Testing should be performed immediately prior to Metamizole dosing. A-jsiwph-l-benzoquinone imine (metabolite of Acetaminophen) will generate erroneously low results in samples for patients that have taken toxic doses of acetaminophen. No Panel Informationon 12-05 49 {mL/min/1.73m2} Abnormal >90 [facility] Work Phone: Comment on above: CALCULATIONS OF FRIEDA MATED GFR ARE PERFORMED USING THE 2020 CKD-EPI STUDY REFIT EQUATION WITHOUT THE RACE VARIABLE FOR THE IDMS-TRACEABLE CREATININE METHODS.https://jasn.asnjournals.org/content/early/ N.[id number] URINALYSIS WITH CULTURE IF I NDICATEDon 12-05-2021 Color (U) Straw See Below [facility] Work Phone: Comment on above: Reference Range: STR AW,YELLOW Glucose Ql (U) Negative NEGATIVE [facility] Work Phone: Ketones Ql (U) Negative NEGATIVE [facility] Work Phone: Leukocyte esterase Test strip Ql (U) Negative NEGATIVE [facility] Work Phone: pH (U) 7.0 [pH] 5.0 - 8.0 [facility] Work Phone: Protein (U) [Mass/Vol] Negative NEGATIVE [facility] Work Phone: RBC (U) [#/Vol] Negative NEGATIVE [facility] Work Phone: Specific gravity (U) [Rel density] 1.010 1 See Below [facility] Work Phone: Comment on above: Reference Range: 1.0 05 - 1.035 URINALYSIS WITH CULTURE IF INDICATED Negative NEGATIVE [facility] Work Phone: URINALYSIS WITH CULTURE IF INDICATED <2.0 0.0 - 1.9 [facility] Work Phone: URINALYSIS WITH CULTURE IF INDICATED CLEAR CLEAR [facility] Work Phone: Tobacco Screening.on 022 Fall risk assessment a) No falls within the last year [facility] Work Phone: Tobacco use status CPHS b) No [facility] Work Phone: CT C Spine without Contrasto n 11-27-2021 CT Cervical spine WO contrast Normal [facility] Work Phone: CT Head without Contraston 0 11-27-2021 CT Head limited WO contrast Normal [facility] Work Phone: CT T Spine without Contrasto n 11-27-2021 CT Thoracic spine WO contrast Normal [facility] Work Phone: Complete Blood Count + Diffe rentialon 11-27-2021 Basophils/100 WBC (Bld) 0.4 % 0.0 - 2.0 [facility] Work Phone: Erythrocyte distribution width (RBC) [Ratio] 13.6 % See Below [facility] Work Phone: Comment on above: Reference Range: 11. 5 - 14.5 Hematocrit (Bld) [Volume fraction] 38.5 % See Below [facility] Work Phone: Comment on above: Reference Range: 36. 0 - 46.0 Hemoglobin (Bld) [Mass/Vol] 12.9 g/dL See Below [facility] Work Phone: Comment on above: Reference Range: 12. 0 - 16.0 Lymphocytes/100 WBC (Bld) 15.5 % See Below [facility] Work Phone: Comment on above: Reference Range: 13. 0 - 44.0 MCHC (RBC) [Mass/Vol] 33.5 g/dL See Below [facility] Work Phone: Comment on above: Reference Range: 32. 0 - 36.0 MCV (RBC) [Entitic vol] 88 fL 80 - 100 [facility] Work Phone: Monocytes/100 WBC (Bld) 7.4 % 2.0 - 10.0 [facility] Work Phone: Neutrophils/100 WBC (Bld) 74.6 % See Below [facility] Work Phone: Comment on above: Reference Range: 40. 0 - 80.0 Platelets (Bld) [#/Vol] 113 10*3/uL below low threshold 150 - 450 [facility] Work Phone: RBC (Bld) [#/Vol] 4.35 {x10E12/L} See Below [facility] Work Phone: Comment on above: Reference Range: 4.0 0 - 5.20 WBC (Bld) [#/Vol] 5.3 10*3/uL 4.4 - 11.3 [facility] Work Phone: Complete Blood Count + Differential 0.00 {x10E9/L} See Below [facility] Work Phone: Comment on above: Reference Range: 0.0 0 - 0.10 Complete Blood Count + Differential 0.10 {x10E9/L} See Below [facility] Work Phone: Comment on above: Reference Range: 0.0 0 - 0.70 Complete Blood Count + Differential 0.40 {x10E9/L} See Below [facility] Work Phone: Comment on above: Reference Range: 0.1 0 - 1.00 Complete Blood Count + Differential 0.80 {x10E9/L} below low threshold See Below [facility] Work Phone: Comment on above: Reference Range: 1.2 0 - 4.80 Complete Blood Count + Differential 4.00 {x10E9/L} See Below [facility] Work Phone: Comment on above: Reference Range: 1.2 0 - 7.70 Percent differential counts (%) should be interpreted in the context of the absolute cell counts (cells/L). Complete Blood Count + Differential 2.1 % 0.0 - 6.0 [facility] Work Phone: Complete Blood Count + Differential 0.1 {/100_WBC} [facility] Work Phone: Cult, Urineon 11-27-2021 Bacteria identified Cx Nom (U) Abnormal [facility] Work Phone: Laboratory - Chemistry and C hemistry - challengeon 11-27-2021 Albumin BCP dye [Mass/Vol] 3.9 g/dL 3.4 - 5.0 [facility] Work Phone: ALP [Catalytic activity/Vol] 69 U/L 33 - 110 [facility] Work Phone: ALT With P-5'-P [Catalytic activity/Vol] 17 U/L 7 - 45 [facility] Work Phone: Comment on above: Patients treated wit h Sulfasalazine may generate falsely decreased results for ALT. Anion gap [Moles/Vol] 12 mmol/L 10 - 20 [facility] Work Phone: AST With P-5'-P [Catalytic activity/Vol] 19 U/L 9 - 39 [facility] Work Phone: Bilirubin [Mass/Vol] 0.4 mg/dL 0.0 - 1.2 [facility] Work Phone: Calcium [Mass/Vol] 8.4 mg/dL below low threshold 8.6 - 10.3 [facility] Work Phone: Chloride [Moles/Vol] 98 mmol/L 98 - 107 [facility] Work Phone: CO2 [Moles/Vol] 28 mmol/L 21 - 32 [facility] Work Phone: Creatinine [Mass/Vol] 1.15 mg/dL above high threshold See Below [facility] Work Phone: Comment on above: Reference Range: 0.5 0 - 1.05 Glucose [Mass/Vol] 127 mg/dL above high threshold 74 - 99 [facility] Work Phone: Potassium [Moles/Vol] 3.2 mmol/L below low threshold 3.5 - 5.3 [facility] Work Phone: Protein [Mass/Vol] 6.3 g/dL below low threshold 6.4 - 8.2 [facility] Work Phone: Sodium [Moles/Vol] 135 mmol/L below low threshold 136 - 145 [facility] Work Phone: Urea nitrogen [Mass/Vol] 16 mg/dL 6 - 23 [facility] Work Phone: No Panel Informationon 11-27 59 {mL/min/1.73m2} Abnormal >90 [facility] Work Phone: Comment on above: CALCULATIONS OF FRIEDA MATED GFR ARE PERFORMED USING THE 2020 CKD-EPI STUDY REFIT EQUATION WITHOUT THE RACE VARIABLE FOR THE IDMS-TRACEABLE CREATININE METHODS.https://jasn.asnjournals.org/content// N.8329962402 http://UHMUSEPRDAIO0 1:8 080/musescripts/museweb .dll?RetrieveTestByDate Time?PwigittWV=[id number] 0&Date=07-19-2022&Time= 19%3a12%3a03%3a00&TestT ype=ECG&Site=14&OutputT ype=PDF&Ext=PDF [facility] Work Phone: Please see physicia n note for formal interpretation confirmed by Scribe [facility] Work Phone: Normal [facility] Work Phone: [phone] [facility] Work Phone: [phone] [facility] Work Phone: [phone] [facility] Work Phone: [phone] [facility] Work Phone: [phone] [facility] Work Phone: [phone] 1 [facility] Work Phone: [phone] 1 [facility] Work Phone: [phone] 1 [facility] Work Phone: [phone] [facility] Work Phone: [phone] [facility] Work Phone: [phone] [facility] Work Phone: [phone] [facility] Work Phone: [phone] [facility] Work Phone: [phone] [facility] Work Phone: Troponin I, Serumon 11-27-19 22 Troponin I.cardiac [Mass/Vol] ng/mL See Below [facility] Work Phone: Comment on above: [...] is performed using different testing methodology at [facility] than at other [facility]. Direct result comparisons should only be made within the same method. URINALYSIS WITH CULTURE IF I NDICATEDon 11-27-2021 Color (U) Yellow See Below [facility] Work Phone: Comment on above: Reference Range: STR AW,YELLOW Glucose Ql (U) Negative NEGATIVE [facility] Work Phone: Ketones Ql (U) Negative NEGATIVE [facility] Work Phone: Leukocyte esterase Test strip Ql (U) TRACE Abnormal NEGATIVE [facility] Work Phone: pH (U) 6.0 [pH] 5.0 - 8.0 [facility] Work Phone: Protein (U) [Mass/Vol] Negative NEGATIVE [facility] Work Phone: RBC (U) [#/Vol] Negative NEGATIVE [facility] Work Phone: Specific gravity (U) [Rel density] 1.014 1 See Below [facility] Work Phone: Comment on above: Reference Range: 1.0 05 - 1.035 URINALYSIS WITH CULTURE IF INDICATED Negative NEGATIVE [facility] Work Phone: URINALYSIS WITH CULTURE IF INDICATED <2.0 0.0 - 1.9 [facility] Work Phone: URINALYSIS WITH CULTURE IF INDICATED HAZY CLEAR [facility] Work Phone: Urinalysis, Microscopicon Hyaline casts LM Ql (Urine sed) 1+ Abnormal [facility] Work Phone: Urinalysis, Microscopic 1+ Abnormal [facility] Work Phone: Urinalysis, Microscopic 19 {/HPF} [facility] Work Phone: Urinalysis, Microscopic 1 {/HPF} 0-5 [facility] Work Phone: Urinalysis, Microscopic 2 {/HPF} 0-5 [facility] Work Phone: Ammonia, Plasmaon 11-04-2021 Ammonia (P) [Moles/Vol] 15 umol/L Abnormal [facility] Work Phone: Comment on above: .REFERENCE VALUESDAY 1 to DAY 7 <110DAY 8 to DAY 14 < 90DAY 15 to ADULT 16-53 Complete Blood Count + Diffe rentialon 11-04-2021 Basophils/100 WBC (Bld) 1.2 % 0.0 - 2.0 [facility] Work Phone: Erythrocyte distribution width (RBC) [Ratio] 13.3 % See Below [facility] Work Phone: Comment on above: Reference Range: 11. 5 - 14.5 Hematocrit (Bld) [Volume fraction] 40.2 % See Below [facility] Work Phone: Comment on above: Reference Range: 36. 0 - 46.0 Hemoglobin (Bld) [Mass/Vol] 13.5 g/dL See Below [facility] Work Phone: Comment on above: Reference Range: 12. 0 - 16.0 Lymphocytes/100 WBC (Bld) 25.3 % See Below [facility] Work Phone: Comment on above: Reference Range: 13. 0 - 44.0 MCHC (RBC) [Mass/Vol] 33.5 g/dL See Below [facility] Work Phone: Comment on above: Reference Range: 32. 0 - 36.0 MCV (RBC) [Entitic vol] 89 fL 80 - 100 [facility] Work Phone: Monocytes/100 WBC (Bld) 6.5 % 2.0 - 10.0 [facility] Work Phone: Neutrophils/100 WBC (Bld) 65.5 % See Below [facility] Work Phone: Comment on above: Reference Range: 40. 0 - 80.0 Platelets (Bld) [#/Vol] 119 10*3/uL below low threshold 150 - 450 [facility] Work Phone: RBC (Bld) [#/Vol] 4.52 {x10E12/L} See Below [facility] Work Phone: Comment on above: Reference Range: 4.0 0 - 5.20 WBC (Bld) [#/Vol] 5.8 10*3/uL 4.4 - 11.3 [facility] Work Phone: Complete Blood Count + Differential 0.10 {x10E9/L} See Below [facility] Work Phone: Comment on above: Reference Range: 0.0 0 - 0.10 Reference Range: 0.0 0 - 0.70 Complete Blood Count + Differential 0.40 {x10E9/L} See Below [facility] Work Phone: Comment on above: Reference Range: 0.1 0 - 1.00 Complete Blood Count + Differential 1.50 {x10E9/L} See Below [facility] Work Phone: Comment on above: Reference Range: 1.2 0 - 4.80 Complete Blood Count + Differential 3.80 {x10E9/L} See Below [facility] Work Phone: Comment on above: Reference Range: 1.2 0 - 7.70 Percent differential counts (%) should be interpreted in the context of the absolute cell counts (cells/L). Complete Blood Count + Differential 1.5 % 0.0 - 6.0 [facility] Work Phone: Complete Blood Count + Differential 0.1 {/100_WBC} [facility] Work Phone: Kehola, Levelon 11-04-2021 levETIRAcetam [Mass/Vol] 28 ug/mL 10 - 40 [facility] Work Phone: Comment on above: Brivaracetam may fal sely increase the amount of levetiracetam measured by this method. Serum levels should be confirmed by a valid chromatographic method for patients with these drugs co-present in circulation. Laboratory - Chemistry and C hemistry - challengeon 11-04-2021 Albumin BCP dye [Mass/Vol] 4.2 g/dL 3.4 - 5.0 [facility] Work Phone: ALP [Catalytic activity/Vol] 66 U/L 33 - 110 [facility] Work Phone: ALT With P-5'-P [Catalytic activity/Vol] 16 U/L 7 - 45 [facility] Work Phone: Comment on above: Patients treated wit h Sulfasalazine may generate falsely decreased results for ALT. Anion gap [Moles/Vol] 12 mmol/L 10 - 20 [facility] Work Phone: AST With P-5'-P [Catalytic activity/Vol] 23 U/L 9 - 39 [facility] Work Phone: Bilirubin [Mass/Vol] 0.4 mg/dL 0.0 - 1.2 [facility] Work Phone: Calcium [Mass/Vol] 9.3 mg/dL 8.6 - 10.3 [facility] Work Phone: Chloride [Moles/Vol] 97 mmol/L below low threshold 98 - 107 [facility] Work Phone: CO2 [Moles/Vol] 33 mmol/L above high threshold 21 - 32 [facility] Work Phone: Creatinine [Mass/Vol] 1.20 mg/dL above high threshold See Below [facility] Work Phone: Comment on above: Reference Range: 0.5 0 - 1.05 Glucose [Mass/Vol] 96 mg/dL 74 - 99 [facility] Work Phone: Potassium [Moles/Vol] 3.6 mmol/L 3.5 - 5.3 [facility] Work Phone: Protein [Mass/Vol] 6.5 g/dL 6.4 - 8.2 [facility] Work Phone: Sodium [Moles/Vol] 138 mmol/L 136 - 145 [facility] Work Phone: Urea nitrogen [Mass/Vol] 16 mg/dL 6 - 23 [facility] Work Phone: Laboratory - Drug toxicology on 11-04-2021 Amphetamines Screen Ql (U) Negative NEGATIVE [facility] Work Phone: Comment on above: CUTOFF LEVEL: 500 NG /ML Cross-reactivity has been reported with high concentrations of the following drugs: buproprion, chloroquine, chlorpromazine, ephedrine, mephentermine, fenfluramine, phentermine, phenylpropanolamine, pseudoephedrine, and propranolol. Barbiturates Screen Ql (U) Positive Abnormal NEGATIVE [facility] Work Phone: Comment on above: CUTOFF LEVEL: 200 NG /ML Benzodiazepines Ql (U) Negative NEGATIVE [facility] Work Phone: Comment on above: CUTOFF LEVEL: 200 NG /ML Benzoylecgonine Screen Ql (U) Negative NEGATIVE [facility] Work Phone: Comment on above: CUTOFF LEVEL: 150 NG /ML Butalbital (U) [Mass/Vol] <50 [facility] Work Phone: Comment on above: INTERPRETIVE [...] developed and its performance characteristics determined by [employer]. It has not been cleared or approved by the [place] Food and Drug Administration. This test was performed in a CLIA certified laboratory and is intended for clinical purposes. Cannabinoids Screen Ql (U) Negative NEGATIVE [facility] Work Phone: Comment on above: CUTOFF LEVEL: 50 NG/ ML Methadone Screen Ql (U) Negative NEGATIVE [facility] Work Phone: Comment on above: CUTOFF LEVEL: 150 NG /ML The metabolite V-ymugn-ihqqfsckipljao (LAAM) is not detected by this method in concentrations that would be found in the urine of patients on LAAM therapy. Opiates Screen Ql (U) Negative NEGATIVE [facility] Work Phone: Comment on above: CUTOFF LEVEL: 300 NG /ML The opiate screen does not detect fentanyl, meperidine, or tramadol. Oxycodone is not consistently detected (refer to Oxycodone Screen, Urine result). oxyCODONE+oxyMORphone Screen Ql (U) Negative NEGATIVE [facility] Work Phone: Comment on above: CUTOFF LEVEL: 100 NG /ML This test will accurately detect both oxycodone and oxymorphone. PENTobarbital (U) [Mass/Vol] <50 [facility] Work Phone: Comment on above: Performed By: JASPER [address] [place] [id number] Director: Lizet Hart MD Phencyclidine Ql (U) Negative NEGATIVE [facility] Work Phone: Comment on above: CUTOFF LEVEL: 25 NG/ ML Cross-reactivity has been reported with dextromethorphan. PHENobarbital (U) [Mass/Vol] 2063 ng/mL [facility] Work Phone: Magnesium, Serumon Magnesium [Mass/Vol] 1.64 mg/dL See Below [facility] Work Phone: Comment on above: Reference Range: 1.6 0 - 2.40 No Panel Informationon 11-04 Negative NEGATIVE [facility] Work Phone: Comment on above: CUTOFF LEVEL: 1 NG/M L The performance characteristics of this test have been determined by the individual laboratory site where testing is performed. This test has not been cleared or approved by the FDA; however, the FDA has determined that such clearance is not necessary. SEE BELOW [facility] Work Phone: Comment on above: Drug screen [...] laboratory medical directors. 56 {mL/min/1.73m2} Abnormal >90 [facility] Work Phone: Comment on above: CALCULATIONS OF FRIEDA MATED GFR ARE PERFORMED USING THE 2020 CKD-EPI STUDY REFIT EQUATION WITHOUT THE RACE VARIABLE FOR THE IDMS-TRACEABLE CREATININE METHODS.https://jasn.asnjournals.org/content/early/ N.9788518912 3.1 ug/mL below low threshold See Below [facility] Work Phone: Comment on above: Reference Range: 10. 0 - 40.0 Reference ranges and high/low indicator flags are provided as general guidelines only. The treating physician must determine appropriate target levels/dosing based on the specific clinical situation. 6.2 ug/mL 5.0 - 10.0 [facility] Work Phone: Comment on above: Reference ranges and high/low indicator flags are provided as general guidelines only. The treating physician must determine appropriate target levels/dosing based on the specific clinical situation. This test was developed and its performance characteristics determined by [facility] [place] ( [facility]). It has not been cleared or approved by the FDA. [facility] is regulated under CLIA as qualified to perform high complexity testing. This test should not be regarded as investigational or for research. Tobacco Screening.on 022 Fall risk assessment b) One or more fall s in the last year [facility] Work Phone: Tobacco use status [facility] b) No [facility] Work Phone: Valproic Acid Level, Serumon 11-04-2021 Valproate [Mass/Vol] 57 ug/mL 50 - 100 [facility] Work Phone: Cult, Urineon 10-27-2021 Bacteria identified Cx Nom (U) [facility] Work Phone: Urinalysison 10-27-2021 Color (U) Yellow See Below [facility] Work Phone: Comment on above: Reference Range: STR AW,YELLOW Glucose Ql (U) Negative NEGATIVE [facility] Work Phone: Ketones Ql (U) Negative NEGATIVE [facility] Work Phone: Leukocyte esterase Test strip Ql (U) Negative NEGATIVE [facility] Work Phone: pH (U) 5.0 [pH] 5.0 - 8.0 [facility] Work Phone: Protein (U) [Mass/Vol] Negative NEGATIVE [facility] Work Phone: RBC (U) [#/Vol] Negative NEGATIVE [facility] Work Phone: Specific gravity (U) [Rel density] 1.015 1 See Below [facility] Work Phone: Comment on above: Reference Range: 1.0 05 - 1.035 Urinalysis Negative NEGATIVE [facility] Work Phone: Urinalysis <2.0 0.0 - 1.9 [facility] Work Phone: Urinalysis CLEAR CLEAR [facility] Work Phone: Complete Blood Count + Diffe rentialon 10-01-2021 Basophils/100 WBC (Bld) 0.2 % 0.0 - 2.0 [facility] Work Phone: Erythrocyte distribution width (RBC) [Ratio] 13.3 % See Below [facility] Work Phone: Comment on above: Reference Range: 11. 5 - 14.5 Hematocrit (Bld) [Volume fraction] 38.7 % See Below [facility] Work Phone: Comment on above: Reference Range: 36. 0 - 46.0 Hemoglobin (Bld) [Mass/Vol] 13.0 g/dL See Below [facility] Work Phone: Comment on above: Reference Range: 12. 0 - 16.0 Lymphocytes/100 WBC (Bld) 25.3 % See Below [facility] Work Phone: Comment on above: Reference Range: 13. 0 - 44.0 MCHC (RBC) [Mass/Vol] 33.5 g/dL See Below [facility] Work Phone: Comment on above: Reference Range: 32. 0 - 36.0 MCV (RBC) [Entitic vol] 90 fL 80 - 100 [facility] Work Phone: Monocytes/100 WBC (Bld) 8.1 % 2.0 - 10.0 [facility] Work Phone: Neutrophils/100 WBC (Bld) 64.2 % See Below [facility] Work Phone: Comment on above: Reference Range: 40. 0 - 80.0 Platelets (Bld) [#/Vol] 111 10*3/uL below low threshold 150 - 450 [facility] Work Phone: RBC (Bld) [#/Vol] 4.30 {x10E12/L} See Below [facility] Work Phone: Comment on above: Reference Range: 4.0 0 - 5.20 WBC (Bld) [#/Vol] 5.9 10*3/uL 4.4 - 11.3 [facility] Work Phone: Complete Blood Count + Differential 0.00 {x10E9/L} See Below [facility] Work Phone: Comment on above: Reference Range: 0.0 0 - 0.10 Complete Blood Count + Differential 0.10 {x10E9/L} See Below [facility] Work Phone: Comment on above: Reference Range: 0.0 0 - 0.70 Complete Blood Count + Differential 0.50 {x10E9/L} See Below [facility] Work Phone: Comment on above: Reference Range: 0.1 0 - 1.00 Complete Blood Count + Differential 1.50 {x10E9/L} See Below [facility] Work Phone: Comment on above: Reference Range: 1.2 0 - 4.80 Complete Blood Count + Differential 3.80 {x10E9/L} See Below [facility] Work Phone: Comment on above: Reference Range: 1.2 0 - 7.70 Percent differential counts (%) should be interpreted in the context of the absolute cell counts (cells/L). Complete Blood Count + Differential 2.2 % 0.0 - 6.0 [facility] Work Phone: Complete Blood Count + Differential 0.1 {/100_WBC} [facility] Work Phone: Laboratory - Chemistry and C hemistry - challengeon 10-01-2021 Albumin BCP dye [Mass/Vol] 3.8 g/dL 3.4 - 5.0 [facility] Work Phone: ALP [Catalytic activity/Vol] 67 U/L 33 - 110 [facility] Work Phone: ALT With P-5'-P [Catalytic activity/Vol] 16 U/L 7 - 45 [facility] Work Phone: Comment on above: Patients treated wit h Sulfasalazine may generate falsely decreased results for ALT. Anion gap [Moles/Vol] 9 mmol/L below low threshold 10 - 20 [facility] Work Phone: AST With P-5'-P [Catalytic activity/Vol] 18 U/L 9 - 39 [facility] Work Phone: Bilirubin [Mass/Vol] 0.3 mg/dL 0.0 - 1.2 [facility] Work Phone: Calcium [Mass/Vol] 8.7 mg/dL 8.6 - 10.3 [facility] Work Phone: Chloride [Moles/Vol] 99 mmol/L 98 - 107 [facility] Work Phone: CO2 [Moles/Vol] 33 mmol/L above high threshold 21 - 32 [facility] Work Phone: Creatinine [Mass/Vol] 0.98 mg/dL See Below [facility] Work Phone: Comment on above: Reference Range: 0.5 0 - 1.05 Glucose [Mass/Vol] 98 mg/dL 74 - 99 [facility] Work Phone: Potassium [Moles/Vol] 3.4 mmol/L below low threshold 3.5 - 5.3 [facility] Work Phone: Protein [Mass/Vol] 5.8 g/dL below low threshold 6.4 - 8.2 [facility] Work Phone: Sodium [Moles/Vol] 138 mmol/L 136 - 145 [facility] Work Phone: Urea nitrogen [Mass/Vol] 18 mg/dL 6 - 23 [facility] Work Phone: No Panel Informationon 10-01 >60 >60 [facility] Work Phone: Comment on above: CALCULATIONS OF FRIEDA MATED GFR ARE PERFORMED USING THE MDRD STUDY EQUATION FOR THE IDMS-TRACEABLE CREATININE METHODS. CLIN CHEM 2007;53:766-72 Vitamin B12, Serumon 021 Cobalamin (Vitamin B12) [Mass/Vol] 598 pg/mL 211 - 911 [facility] Work Phone: Falls Risk Screeningon 08-12 Fall risk assessment b) One or more fall s in the last year [facility] Work Phone: Tobacco use status [facility] b) No [facility] Work Phone: Complete Blood Count + Chari gardnuo 08-05-2021 Basophils/100 WBC (Bld) 0.2 % 0.0 - 2.0 [facility] Work Phone: Erythrocyte distribution width (RBC) [Ratio] 13.1 % See Below [facility] Work Phone: Comment on above: Reference Range: 11. 5 - 14.5 Hematocrit (Bld) [Volume fraction] 42.6 % See Below [facility] Work Phone: Comment on above: Reference Range: 36. 0 - 46.0 Hemoglobin (Bld) [Mass/Vol] 14.2 g/dL See Below [facility] Work Phone: Comment on above: Reference Range: 12. 0 - 16.0 Lymphocytes/100 WBC (Bld) 30.9 % See Below [facility] Work Phone: Comment on above: Reference Range: 13. 0 - 44.0 MCHC (RBC) [Mass/Vol] 33.3 g/dL See Below [facility] Work Phone: Comment on above: Reference Range: 32. 0 - 36.0 MCV (RBC) [Entitic vol] 90 fL 80 - 100 [facility] Work Phone: Monocytes/100 WBC (Bld) 6.0 % 2.0 - 10.0 [facility] Work Phone: Neutrophils/100 WBC (Bld) 61.0 % See Below [facility] Work Phone: Comment on above: Reference Range: 40. 0 - 80.0 Platelets (Bld) [#/Vol] 117 10*3/uL below low threshold 150 - 450 [facility] Work Phone: RBC (Bld) [#/Vol] 4.72 {x10E12/L} See Below [facility] Work Phone: Comment on above: Reference Range: 4.0 0 - 5.20 WBC (Bld) [#/Vol] 5.2 10*3/uL 4.4 - 11.3 [facility] Work Phone: Complete Blood Count + Differential 0.00 {x10E9/L} See Below [facility] Work Phone: Comment on above: Reference Range: 0.0 0 - 0.10 Complete Blood Count + Differential 0.10 {x10E9/L} See Below [facility] Work Phone: Comment on above: Reference Range: 0.0 0 - 0.70 Complete Blood Count + Differential 0.30 {x10E9/L} See Below [facility] Work Phone: Comment on above: Reference Range: 0.1 0 - 1.00 Complete Blood Count + Differential 1.60 {x10E9/L} See Below [facility] Work Phone: Comment on above: Reference Range: 1.2 0 - 4.80 Complete Blood Count + Differential 3.20 {x10E9/L} See Below [facility] Work Phone: Comment on above: Reference Range: 1.2 0 - 7.70 Percent differential counts (%) should be interpreted in the context of the absolute cell counts (cells/L). Complete Blood Count + Differential 1.9 % 0.0 - 6.0 [facility] Work Phone: Complete Blood Count + Differential 0.1 {/100_WBC} [facility] Work Phone: Hemoglobin A1Con 08-05-2021 Glucose [Mass/Vol] 103 mg/dL [facility] Work Phone: HbA1c (Bld) [Mass fraction] 5.2 % [facility] Work Phone: Comment on above: Diagnosis of Diabete s-Adults Non-Diabetic: < or = 5.6% Increased risk for developing diabetes: 5.7-6.4% Diagnostic of diabetes: > or = 6.5%. Monitoring of Diabetes Age (y) Therapeutic Goal (%) Adults: >18 <7.0 Pediatrics: 13-18 <7.5 7-12 <8.0 0- 6 7.5-8.5 [place] [employer]. Diabetes Care 33(S1), Oct 2009. Laboratory - Chemistry and C hemistry - challengeon 08-05-2021 Albumin BCP dye [Mass/Vol] 4.0 g/dL 3.4 - 5.0 [facility] Work Phone: ALP [Catalytic activity/Vol] 61 U/L 33 - 110 [facility] Work Phone: ALT With P-5'-P [Catalytic activity/Vol] 19 U/L 7 - 45 [facility] Work Phone: Comment on above: Patients treated wit h Sulfasalazine may generate falsely decreased results for ALT. Anion gap [Moles/Vol] 11 mmol/L 10 - 20 [facility] Work Phone: AST With P-5'-P [Catalytic activity/Vol] 27 U/L 9 - 39 [facility] Work Phone: Bilirubin [Mass/Vol] 0.4 mg/dL 0.0 - 1.2 [facility] Work Phone: Calcium [Mass/Vol] 8.3 mg/dL below low threshold 8.6 - 10.3 [facility] Work Phone: Chloride [Moles/Vol] 99 mmol/L 98 - 107 [facility] Work Phone: CO2 [Moles/Vol] 30 mmol/L 21 - 32 [facility] Work Phone: Creatinine [Mass/Vol] 1.10 mg/dL above high threshold See Below [facility] Work Phone: Comment on above: Reference Range: 0.5 0 - 1.05 Glucose [Mass/Vol] 86 mg/dL 74 - 99 [facility] Work Phone: Potassium [Moles/Vol] 3.4 mmol/L below low threshold 3.5 - 5.3 [facility] Work Phone: Protein [Mass/Vol] 6.1 g/dL below low threshold 6.4 - 8.2 [facility] Work Phone: Sodium [Moles/Vol] 137 mmol/L 136 - 145 [facility] Work Phone: Urea nitrogen [Mass/Vol] 14 mg/dL 6 - 23 [facility] Work Phone: Lipid Panelon 08-05-2021 Cholesterol [Mass/Vol] 180 mg/dL 0 - 199 [facility] Work Phone: Comment on above: . [...] dosing. Cholesterol in HDL [Mass/Vol] 40.0 mg/dL [facility] Work Phone: Comment on above: . AGE VERY LOW LOW N ORMAL HIGH 0-19 Y < 35 < 40 40-45 ---- 20- 24 Y ---- < 40 >45 ---- >24 Y ---- < 40 40-60 >60. Cholesterol in LDL [Mass/Vol] 103 mg/dL above high threshold 0 - 99 [facility] Work Phone: Comment on above: . NEAR BORD AGE MARIZOL RABLE OPTIMAL HIGH HIGH VERY HIGH 0-19 Y 0 - 109 --- 110-129 >/= 130 ---- 20-24 Y 0 - 119 --- 120-159 >/= 160 ---- >24 Y 0 - 99 100-129 130-159 160-189 >/=190. Cholesterol.total/Cho lesterol in HDL [Mass ratio] 4.5 {ratio} [facility] Work Phone: Comment on above: REF VALUESDESIRABLE < 3.4HIGH RISK > 5.0 Triglyceride [Mass/Vol] 184 mg/dL above high threshold 0 - 149 [facility] Work Phone: Comment on above: . [...] Lipid Panel 37 mg/dL 0 - 40 [facility] Work Phone: No Panel Informationon 08-05 64 {mL/min/1.73m2} >60 [facility] Work Phone: Comment on above: CALCULATIONS OF FRIEDA MATED GFR ARE PERFORMED USING THE MDRD STUDY EQUATION FOR THE IDMS-TRACEABLE CREATININE METHODS. CLIN CHEM 2007;53:766-72 53 {mL/min/1.73m2} Abnormal >60 [facility] Work Phone: Uric Acid, Serumon Urate [Mass/Vol] 4.1 mg/dL 2.3 - 6.7 [facility] Work Phone: Comment on above: Venipuncture immedia tely after or during the administration of Metamizole may lead to falsely low results. Testing should be performed immediately prior to Metamizole dosing. Valproic Acid Level, Serumon 08-05-2021 Valproate [Mass/Vol] 67 ug/mL 50 - 100 [facility] Work Phone: Tobacco Screening.on Fall risk assessment b) One or more fall s in the last year [facility] Work Phone: Tobacco use status [facility] b) No [facility] Work Phone: CT C Spine without Contrasto n 07-10-2021 CT Cervical spine WO contrast Normal [facility] [address] [facility] Work Phone: CT Facial Boneson 07-10-2021 CT Facial bones Normal [facility] Work Phone: CT Head without Contraston 0 07-10-2021 CT Head limited WO contrast Normal [facility] Work Phone: Radiologyon 07-10-2021 XR Knee 4 Views Normal [facility] Work Phone: No Panel Informationon 07-07 Normal [facility] Work Phone: Please click on the link to view the study images Normal [facility] Work Phone: Cult, Genitalon 07-01-2021 Bacteria identified Aer cx Nom (Genital specimen) [employer] [facility] [address] [facility] Work Phone: Cult, Urineon 07-01-2021 Bacteria identified Cx Nom (U) [facility] Work Phone: Tobacco Screening.on 021 Fall risk assessment a) No falls within the last year [facility] Work Phone: Tobacco use status [facility] b) No [facility] Work Phone: Tobacco Screening.on 021 Fall risk assessment b) One or more fall s in the last year [facility] Work Phone: Tobacco use status [facility] b) No [facility] Work Phone: Laboratory - Chemistry and C hemistry - challengeon 05-18-2021 Anion gap [Moles/Vol] 10 mmol/L 10 - 20 [facility] Work Phone: Calcium [Mass/Vol] 7.5 mg/dL below low threshold 8.6 - 10.3 [facility] Work Phone: Chloride [Moles/Vol] 104 mmol/L 98 - 107 [facility] Work Phone: CO2 [Moles/Vol] 25 mmol/L 21 - 32 [facility] Work Phone: Creatinine [Mass/Vol] 1.03 mg/dL See Below [facility] Work Phone: Comment on above: Reference Range: 0.5 0 - 1.05 Glucose [Mass/Vol] 118 mg/dL above high threshold 74 - 99 [facility] Work Phone: Potassium [Moles/Vol] 3.4 mmol/L below low threshold 3.5 - 5.3 [facility] Work Phone: Sodium [Moles/Vol] 136 mmol/L 136 - 145 [facility] Work Phone: Urea nitrogen [Mass/Vol] 13 mg/dL 6 - 23 [facility] Work Phone: Anion gap [Moles/Vol] 25 mmol/L above high threshold 10 - 20 [facility] Work Phone: Calcium [Mass/Vol] 8.9 mg/dL 8.6 - 10.3 [facility] Work Phone: Chloride [Moles/Vol] 95 mmol/L below low threshold 98 - 107 [facility] Work Phone: CO2 [Moles/Vol] 18 mmol/L below low threshold 21 - 32 [facility] Work Phone: Creatinine [Mass/Vol] 1.42 mg/dL above high threshold See Below [facility] Work Phone: Comment on above: Reference Range: 0.5 0 - 1.05 Glucose [Mass/Vol] 145 mg/dL above high threshold 74 - 99 [facility] Work Phone: Potassium [Moles/Vol] 2.9 mmol/L Critically low 3.5 - 5.3 [facility] Work Phone: Comment on above: Called- RB to Zenaida Stovallayakayasir, 05/18/2021 04:40 Sodium [Moles/Vol] 135 mmol/L below low threshold 136 - 145 [facility] Work Phone: Urea nitrogen [Mass/Vol] 14 mg/dL 6 - 23 [facility] Work Phone: Laboratory - Hematology and Cell countson 05-18-2021 Erythrocyte distribution width (RBC) [Ratio] 14.0 % See Below [facility] Work Phone: Comment on above: Reference Range: 11. 5 - 14.5 Hematocrit (Bld) [Volume fraction] 41.2 % See Below [facility] Work Phone: Comment on above: Reference Range: 36. 0 - 46.0 Hemoglobin (Bld) [Mass/Vol] 13.7 g/dL See Below [facility] Work Phone: Comment on above: Reference Range: 12. 0 - 16.0 MCHC (RBC) [Mass/Vol] 33.3 g/dL See Below [facility] Work Phone: Comment on above: Reference Range: 32. 0 - 36.0 MCV (RBC) [Entitic vol] 92 fL 80 - 100 [facility] Work Phone: Platelets (Bld) [#/Vol] 132 10*3/uL below low threshold 150 - 450 [facility] Work Phone: RBC (Bld) [#/Vol] 4.47 {x10E12/L} See Below [facility] Work Phone: Comment on above: Reference Range: 4.0 0 - 5.20 WBC (Bld) [#/Vol] 8.3 10*3/uL 4.4 - 11.3 [facility] Work Phone: Lactate, Levelon 05-18-2021 Lactate [Moles/Vol] 0.6 mmol/L 0.4 - 2.0 [facility] Work Phone: Comment on above: Venipuncture immedia tely after or during the administration of Metamizole may lead to falsely low results. Testing should be performed immediately prior to Metamizole dosing. Lactate [Moles/Vol] 10.3 mmol/L Critically high 0.4 - 2.0 [facility] Work Phone: Comment on above: Venipuncture immedia tely after or during the administration of Metamizole may lead to falsely low results. Testing should be performed immediately prior to Metamizole dosing. Called- RB to Zenaida Pandaavery , 05/18/2021 05:36 No Panel Informationon 05-18 69 {mL/min/1.73m2} >60 [facility] Work Phone: Comment on above: CALCULATIONS OF FRIEDA MATED GFR ARE PERFORMED USING THE MDRD STUDY EQUATION FOR THE IDMS-TRACEABLE CREATININE METHODS. CLIN CHEM 2007;53:766-72 57 {mL/min/1.73m2} Abnormal >60 [facility] Work Phone: 48 {mL/min/1.73m2} Abnormal >60 [facility] Work Phone: Comment on above: CALCULATIONS OF FRIEDA MATED GFR ARE PERFORMED USING THE MDRD STUDY EQUATION FOR THE IDMS-TRACEABLE CREATININE METHODS. CLIN CHEM 2007;53:766-72 40 {mL/min/1.73m2} Abnormal >60 [facility] Work Phone: CT Head without Contraston 0 05-15-2021 CT Head limited WO contrast Normal [facility] Work Phone: Complete Blood Count + Diffe rentialon 05-15-2021 Erythrocyte distribution width (RBC) [Ratio] 14.2 % See Below [facility] Work Phone: Comment on above: Reference Range: 11. 5 - 14.5 Hematocrit (Bld) [Volume fraction] 38.3 % See Below [facility] Work Phone: Comment on above: Reference Range: 36. 0 - 46.0 Hemoglobin (Bld) [Mass/Vol] 12.5 g/dL See Below [facility] Work Phone: Comment on above: Reference Range: 12. 0 - 16.0 MCHC (RBC) [Mass/Vol] 32.7 g/dL See Below [facility] Work Phone: Comment on above: Reference Range: 32. 0 - 36.0 MCV (RBC) [Entitic vol] 92 fL 80 - 100 [facility] Work Phone: Platelets (Bld) [#/Vol] 116 10*3/uL below low threshold 150 - 450 [facility] Work Phone: RBC (Bld) [#/Vol] 4.16 {x10E12/L} See Below [facility] Work Phone: Comment on above: Reference Range: 4.0 0 - 5.20 WBC (Bld) [#/Vol] 5.8 10*3/uL 4.4 - 11.3 [facility] Work Phone: Complete Blood Count + Differential SEE MANUAL DIFF [facility] Work Phone: Laboratory - Chemistry and C hemistry - challengeon 05-15-2021 Anion gap [Moles/Vol] 9 mmol/L below low threshold 10 - 20 [facility] Work Phone: Calcium [Mass/Vol] 8.3 mg/dL below low threshold 8.6 - 10.3 [facility] Work Phone: Chloride [Moles/Vol] 104 mmol/L 98 - 107 [facility] Work Phone: CO2 [Moles/Vol] 29 mmol/L 21 - 32 [facility] Work Phone: Creatinine [Mass/Vol] 1.07 mg/dL above high threshold See Below [facility] Work Phone: Comment on above: Reference Range: 0.5 0 - 1.05 Glucose [Mass/Vol] 95 mg/dL 74 - 99 [facility] Work Phone: Potassium [Moles/Vol] 3.9 mmol/L 3.5 - 5.3 [facility] Work Phone: Sodium [Moles/Vol] 138 mmol/L 136 - 145 [facility] Work Phone: Urea nitrogen [Mass/Vol] 13 mg/dL 6 - 23 [facility] Work Phone: Laboratory - Hematology and Cell countson 05-15-2021 Basophils/100 WBC (Bld) 0.0 % 0.0 - 2.0 [facility] Work Phone: Lymphocytes/100 WBC (Bld) 16.0 % See Below [facility] Work Phone: Comment on above: Reference Range: 13. 0 - 44.0 Monocytes/100 WBC (Bld) 1.0 % 2.0 - 10.0 [facility] Work Phone: No Panel Informationon 05-15 0.00 {x10E9/L} See Below [facility] Work Phone: Comment on above: Reference Range: 0.0 0 - 0.10 0.06 {x10E9/L} below low threshold See Below [facility] Work Phone: Comment on above: Reference Range: 0.0 0 - 0.70 Reference Range: 0.1 0 - 1.00 0.93 {x10E9/L} below low threshold See Below [facility] Work Phone: Comment on above: Reference Range: 1.2 0 - 4.80 4.76 {x10E9/L} See Below [facility] Work Phone: Comment on above: Reference Range: 1.2 0 - 7.00 Reference Range: 1.2 0 - 7.70 1.0 % 0.0 - 6.0 [facility] Work Phone: 82.0 % See Below [facility] Work Phone: Comment on above: Reference Range: 40. 0 - 80.0 Percent differential counts (%) should be interpreted in the context of the absolute cell counts (cells/L). NORMAL [facility] Work Phone: 67 {mL/min/1.73m2} >60 [facility] Work Phone: Comment on above: CALCULATIONS OF FRIEDA MATED GFR ARE PERFORMED USING THE MDRD STUDY EQUATION FOR THE IDMS-TRACEABLE CREATININE METHODS. CLIN CHEM 2007;53:766-72 55 {mL/min/1.73m2} Abnormal >60 [facility] Work Phone: URINALYSIS WITH CULTURE IF I NDICATEDon 05-15-2021 Color (U) Yellow See Below [facility] Work Phone: Comment on above: Reference Range: STR AW,YELLOW Glucose Ql (U) Negative NEGATIVE [facility] Work Phone: Ketones Ql (U) Negative NEGATIVE [facility] Work Phone: Leukocyte esterase Test strip Ql (U) Negative NEGATIVE [facility] Work Phone: pH (U) 7.0 [pH] 5.0 - 8.0 [facility] Work Phone: Protein (U) [Mass/Vol] Negative NEGATIVE [facility] Work Phone: RBC (U) [#/Vol] Negative NEGATIVE [facility] Work Phone: Specific gravity (U) [Rel density] 1.011 1 See Below [facility] Work Phone: Comment on above: Reference Range: 1.0 05 - 1.035 URINALYSIS WITH CULTURE IF INDICATED Negative NEGATIVE [facility] Work Phone: URINALYSIS WITH CULTURE IF INDICATED <2.0 0.0 - 1.9 [facility] Work Phone: URINALYSIS WITH CULTURE IF INDICATED CLEAR CLEAR [facility] Work Phone: Complete Blood Count + Diffe rentialon 05-14-2021 Basophils/100 WBC (Bld) 0.3 % 0.0 - 2.0 [facility] Work Phone: Erythrocyte distribution width (RBC) [Ratio] 14.2 % See Below [facility] Work Phone: Comment on above: Reference Range: 11. 5 - 14.5 Hematocrit (Bld) [Volume fraction] 39.9 % See Below [facility] Work Phone: Comment on above: Reference Range: 36. 0 - 46.0 Hemoglobin (Bld) [Mass/Vol] 13.2 g/dL See Below [facility] Work Phone: Comment on above: Reference Range: 12. 0 - 16.0 Lymphocytes/100 WBC (Bld) 22.2 % See Below [facility] Work Phone: Comment on above: Reference Range: 13. 0 - 44.0 MCHC (RBC) [Mass/Vol] 33.0 g/dL See Below [facility] Work Phone: Comment on above: Reference Range: 32. 0 - 36.0 MCV (RBC) [Entitic vol] 92 fL 80 - 100 [facility] Work Phone: Monocytes/100 WBC (Bld) 7.5 % 2.0 - 10.0 [facility] Work Phone: Neutrophils/100 WBC (Bld) 68.4 % See Below [facility] Work Phone: Comment on above: Reference Range: 40. 0 - 80.0 Platelets (Bld) [#/Vol] 108 10*3/uL below low threshold 150 - 450 [facility] Work Phone: RBC (Bld) [#/Vol] 4.36 {x10E12/L} See Below [facility] Work Phone: Comment on above: Reference Range: 4.0 0 - 5.20 WBC (Bld) [#/Vol] 5.8 10*3/uL 4.4 - 11.3 [facility] Work Phone: Complete Blood Count + Differential 0.00 {x10E9/L} See Below [facility] Work Phone: Comment on above: Reference Range: 0.0 0 - 0.10 Complete Blood Count + Differential 0.10 {x10E9/L} See Below [facility] Work Phone: Comment on above: Reference Range: 0.0 0 - 0.70 Complete Blood Count + Differential 0.40 {x10E9/L} See Below [facility] Work Phone: Comment on above: Reference Range: 0.1 0 - 1.00 Complete Blood Count + Differential 1.30 {x10E9/L} See Below [facility] Work Phone: Comment on above: Reference Range: 1.2 0 - 4.80 Complete Blood Count + Differential 4.00 {x10E9/L} See Below [facility] Work Phone: Comment on above: Reference Range: 1.2 0 - 7.70 Percent differential counts (%) should be interpreted in the context of the absolute cell counts (cells/L). Complete Blood Count + Differential 1.6 % 0.0 - 6.0 [facility] Work Phone: Complete Blood Count + Differential 0.3 {/100_WBC} [facility] Work Phone: Laboratory - Chemistry and C hemistry - challengeon 05-14-2021 Albumin BCP dye [Mass/Vol] 3.9 g/dL 3.4 - 5.0 [facility] Work Phone: ALP [Catalytic activity/Vol] 69 U/L 33 - 110 [facility] Work Phone: ALT With P-5'-P [Catalytic activity/Vol] 12 U/L 7 - 45 [facility] Work Phone: Comment on above: Patients treated wit h Sulfasalazine may generate falsely decreased results for ALT. Anion gap [Moles/Vol] 11 mmol/L 10 - 20 [facility] Work Phone: AST With P-5'-P [Catalytic activity/Vol] 18 U/L 9 - 39 [facility] Work Phone: Bilirubin [Mass/Vol] 0.3 mg/dL 0.0 - 1.2 [facility] Work Phone: Calcium [Mass/Vol] 8.9 mg/dL 8.6 - 10.3 [facility] Work Phone: Chloride [Moles/Vol] 101 mmol/L 98 - 107 [facility] Work Phone: CO2 [Moles/Vol] 30 mmol/L 21 - 32 [facility] Work Phone: Creatinine [Mass/Vol] 1.18 mg/dL above high threshold See Below [facility] Work Phone: Comment on above: Reference Range: 0.5 0 - 1.05 Glucose [Mass/Vol] 95 mg/dL 74 - 99 [facility] Work Phone: Potassium [Moles/Vol] 3.8 mmol/L 3.5 - 5.3 [facility] Work Phone: Protein [Mass/Vol] 5.9 g/dL below low threshold 6.4 - 8.2 [facility] Work Phone: Sodium [Moles/Vol] 138 mmol/L 136 - 145 [facility] Work Phone: Urea nitrogen [Mass/Vol] 16 mg/dL 6 - 23 [facility] Work Phone: No Panel Informationon 05-14 220 {ng/mL_FEU} < or = 500 [facility] Work Phone: Comment on [...] or PE exclusion.) 59 {mL/min/1.73m2} Abnormal >60 [facility] Work Phone: Comment on above: CALCULATIONS OF FRIEDA MATED GFR ARE PERFORMED USING THE MDRD STUDY EQUATION FOR THE IDMS-TRACEABLE CREATININE METHODS. CLIN CHEM 2007;53:[id number] 49 {mL/min/1.73m2} Abnormal >60 [facility] Work Phone: Radiologyon 05-14-2021 XR Chest Single view Normal [facility] Work Phone: Troponin I, Serumon 05-14-20 21 Troponin I.cardiac [Mass/Vol] ng/mL See Below [facility] Work Phone: Comment on above: [...] is performed using different testing methodology at [facility] than at other [facility]. Direct result comparisons should only be made within the same method. Troponin I.cardiac [Mass/Vol] ng/mL See Below [facility] Work Phone: Comment on above: [...] is performed using different testing methodology at [facility] than at other [facility]. Direct result comparisons should only be made within the same method. Laboratory - Chemistry and C hemistry - challengeon 04-08-2021 Creatinine (Body fld) [Mass/Vol] 117.1 mg/dL [facility] Work Phone: Comment on above: A urine creatinine r esult >= 20 mg/dL is considered valid without suspicion of dilution. Samples with results below this range will automatically reflex to specific gravity testing to verify specimen integrity. Laboratory - Drug toxicology on 04-08-2021 1-Hydroxymidazolam Confirm (U) [Mass/Vol] <25 Cutoff <25 [facility] Work Phone: 0-Rcjnrwecrs-1,5-Dime thyl-3,3-Diphenylpyrr olidine (EDDP) Confirm (U) [Mass/Vol] <25 Cutoff <25 [facility] Work Phone: Comment on above: The [...] ([id number]) Confirm (U) [Mass/Vol] <25 Cutoff <25 [facility] Work Phone: 7-Aminoclonazepam Confirm (U) [Mass/Vol] <25 Cutoff <25 [facility] Work Phone: Alpha hydroxyalprazolam Confirm (U) [Mass/Vol] <25 Cutoff <25 [facility] Work Phone: ALPRAZolam Confirm (U) [Mass/Vol] <25 Cutoff <25 [facility] Work Phone: Amobarbital (U) [Mass/Vol] <50 [facility] Work Phone: Amphetamines Screen Ql (U) Negative NEGATIVE [facility] Work Phone: Comment on above: CUTOFF LEVEL: 500 NG /ML Cross-reactivity has been reported with high concentrations of the following drugs: buproprion, chloroquine, chlorpromazine, ephedrine, mephentermine, fenfluramine, phentermine, phenylpropanolamine, pseudoephedrine, and propranolol. Barbiturates Screen Ql (U) Positive Abnormal NEGATIVE [facility] Work Phone: Comment on above: CUTOFF LEVEL: 200 NG /ML Benzoylecgonine Screen Ql (U) Negative NEGATIVE [facility] Work Phone: Comment on above: CUTOFF LEVEL: 150 NG /ML Butalbital (U) [Mass/Vol] <50 [facility] Work Phone: Comment on above: INTERPRETIVE [...] developed and its performance characteristics determined by [employer]. It has not been cleared or approved by the [place] Food and Drug Administration. This test was performed in a CLIA certified laboratory and is intended for clinical purposes. Cannabinoids Screen Ql (U) Negative NEGATIVE [facility] Work Phone: Comment on above: CUTOFF LEVEL: 50 NG/ ML chlordiazePOXIDE Confirm (U) [Mass/Vol] <25 Cutoff <25 [facility] Work Phone: clonazePAM Confirm (U) [Mass/Vol] <25 Cutoff <25 [facility] Work Phone: Codeine Confirm (U) [Mass/Vol] <50 Cutoff <50 [facility] Work Phone: diazePAM Confirm (U) [Mass/Vol] <25 Cutoff <25 [facility] Work Phone: fentaNYL Confirm (U) [Mass/Vol] <2.5 Cutoff<2.5 [facility] Work Phone: HYDROcodone Confirm (U) [Mass/Vol] <25 Cutoff <25 [facility] Work Phone: HYDROmorphone Confirm (U) [Mass/Vol] <25 Cutoff <25 [facility] Work Phone: LORazepam Confirm (U) [Mass/Vol] >1000 Abnormal Cutoff <25 [facility] Work Phone: Comment on above: Consistent with use of a drug containing lorazepam, such as Ativan. Methadone Confirm (U) [Mass/Vol] <25 Cutoff <25 [facility] Work Phone: Midazolam Confirm (U) [Mass/Vol] <25 Cutoff <25 [facility] Work Phone: Morphine Confirm (U) [Mass/Vol] <50 Cutoff <50 [facility] Work Phone: Nordiazepam Confirm (U) [Mass/Vol] <25 Cutoff <25 [facility] Work Phone: Norfentanyl Confirm (U) [Mass/Vol] <2.5 Cutoff<2.5 [facility] Work Phone: Comment on above: The [...] Norhydrocodone Confirm (U) [Mass/Vol] <25 Cutoff <25 [facility] Work Phone: Noroxycodone Confirm (U) [Mass/Vol] <25 Cutoff <25 [facility] Work Phone: Nortramadol (U) [Mass/Vol] <50 Cutoff <50 [facility] Work Phone: Comment on above: [...] Oxazepam Confirm (U) [Mass/Vol] <25 Cutoff <25 [facility] Work Phone: oxyCODONE Confirm (U) [Mass/Vol] <25 Cutoff <25 [facility] Work Phone: oxyMORphone Confirm (U) [Mass/Vol] <25 Cutoff <25 [facility] Work Phone: Comment on above: The [...] laboratory testing. PENTobarbital (U) [Mass/Vol] <50 [facility] Work Phone: Phencyclidine Ql (U) Negative NEGATIVE [facility] Work Phone: Comment on above: CUTOFF LEVEL: 25 NG/ ML Cross-reactivity has been reported with dextromethorphan. PHENobarbital (U) [Mass/Vol] 2544 ng/mL [facility] Work Phone: Secobarbital (U) [Mass/Vol] <50 [facility] Work Phone: Comment on above: Performed By: J[facility] [place] [id number] Director: Lizet Hart MD Temazepam Confirm (U) [Mass/Vol] <25 Cutoff <25 [facility] Work Phone: Comment on above: The [...] (U) [Mass/Vol] <50 Cutoff <50 [facility] Work Phone: Zolpidem (U) [Mass/Vol] <25 Cutoff <25 [facility] Work Phone: No Panel Informationon 04-08 <25 Cutoff <25 [facility] Work Phone: Comment on above: The [...] high complexity clinical laboratory testing. SEE BELOW [facility] Work Phone: Comment on above: Drug [...] more fall s in the last year [facility] Work Phone: Tobacco use status CPHS b) No [facility] Work Phone: Complete Blood Count + Diffe [facility]on 01-14-2021 Basophils (Bld) [#/Vol] 0.00 {x10E9/L} See Below [facility] Work Phone: Comment on above: Reference Range: 0.0 0 - 0.10 Basophils/100 WBC (Bld) 0.1 % 0.0 - 2.0 [facility] Work Phone: Eosinophils (Bld) [#/Vol] 0.10 {x10E9/L} See Below [facility] Work Phone: Comment on above: Reference Range: 0.0 0 - 0.70 Eosinophils/100 WBC (Bld) 2.1 % 0.0 - 6.0 [facility] Work Phone: Erythrocyte distribution width (RBC) [Ratio] 13.6 % See Below [facility] Work Phone: Comment on above: Reference Range: 11. 5 - 14.5 Hematocrit (Bld) [Volume fraction] 40.2 % See Below [facility] Work Phone: Comment on above: Reference Range: 36. 0 - 46.0 Hemoglobin (Bld) [Mass/Vol] 13.3 g/dL See Below [facility] Work Phone: Comment on above: Reference Range: 12. 0 - 16.0 Lymphocytes (Bld) [#/Vol] 1.60 {x10E9/L} See Below [facility] Work Phone: Comment on above: Reference Range: 1.2 0 - 4.80 Lymphocytes/100 WBC (Bld) 27.9 % See Below [facility] Work Phone: Comment on above: Reference Range: 13. 0 - 44.0 MCHC (RBC) [Mass/Vol] 33.1 g/dL See Below [facility] Work Phone: Comment on above: Reference Range: 32. 0 - 36.0 MCV (RBC) [Entitic vol] 91 fL 80 - 100 [facility] Work Phone: Monocytes (Bld) [#/Vol] 0.40 {x10E9/L} See Below [facility] Work Phone: Comment on above: Reference Range: 0.1 0 - 1.00 Monocytes/100 WBC (Bld) 7.0 % 2.0 - 10.0 [facility] Work Phone: Neutrophils (Bld) [#/Vol] 3.60 {x10E9/L} See Below [facility] Work Phone: Comment on above: Reference Range: 1.2 0 - 7.70 Percent differential counts (%) should be interpreted in the context of the absolute cell counts (cells/L). Neutrophils/100 WBC (Bld) 62.9 % See Below [facility] Work Phone: Comment on above: Reference Range: 40. 0 - 80.0 Platelets (Bld) [#/Vol] 102 {x10E9/L} below low threshold 150 - 450 [facility] Work Phone: RBC (Bld) [#/Vol] 4.43 {x10E12/L} See Below [facility] Work Phone: Comment on above: Reference Range: 4.0 0 - 5.20 WBC (Bld) [#/Vol] 0.1 {/100_WBC} [facility] Work Phone: WBC (Bld) [#/Vol] 5.7 {x10E9/L} 4.4 - 11.3 [facility] Work Phone: Metabolic Panelon 01-14-2021 ALP [Catalytic activity/Vol] 58 U/L 33 - 110 [facility] Work Phone: Anion gap [Moles/Vol] 13 mmol/L 10 - 20 [facility] Work Phone: Bilirubin [Mass/Vol] 0.3 mg/dL 0.0 - 1.2 [facility] Work Phone: Calcium [Mass/Vol] 8.2 mg/dL below low threshold 8.6 - 10.3 [facility] Work Phone: Chloride [Moles/Vol] 101 mmol/L 98 - 107 [facility] Work Phone: CO2 [Moles/Vol] 29 mmol/L 21 - 32 [facility] Work Phone: Creatinine [Mass/Vol] 1.21 mg/dL above high threshold See Below [facility] Work Phone: Comment on above: Reference Range: 0.5 0 - 1.05 Glucose [Mass/Vol] 127 mg/dL above high threshold 74 - 99 [facility] Work Phone: Potassium [Moles/Vol] 3.1 mmol/L below low threshold 3.5 - 5.3 [facility] Work Phone: Protein [Mass/Vol] 5.4 g/dL below low threshold 6.4 - 8.2 [facility] Work Phone: Sodium [Moles/Vol] 140 mmol/L 136 - 145 [facility] Work Phone: Urea nitrogen [Mass/Vol] 15 mg/dL 6 - 23 [facility] Work Phone: Otheron 01-14-2021 Albumin BCP dye [Mass/Vol] 3.6 g/dL 3.4 - 5.0 [facility] Work Phone: ALT With P-5'-P [Catalytic activity/Vol] 7 U/L 7 - 45 [facility] Work Phone: Comment on above: Patients treated wit h Sulfasalazine may generate falsely decreased results for ALT. AST With P-5'-P [Catalytic activity/Vol] 12 U/L 9 - 39 [facility] Work Phone: 58 {mL/min/1.73m2} Abnormal >60 [facility] Work Phone: Comment on above: CALCULATIONS OF FRIEDA MATED GFR ARE PERFORMED USING THE MDRD STUDY EQUATION FOR THE IDMS-TRACEABLE CREATININE METHODS. CLIN CHEM 2007;53:766-72 48 {mL/min/1.73m2} Abnormal >60 [facility] Work Phone: Basic Metabolic Panelon 11-18 Anion gap [Moles/Vol] 7 mmol/L Low 10 - 2 0 mmol/L [facility] Calcium [Mass/Vol] 8.4 mg/dL 8.4 - 10. 2 mg/dL [facility] [facility] Chloride [Moles/Vol] 103 mmol/L 98 - 10 8 mmol/L [facility] Creatinine [Mass/Vol] 1.35 mg/dL High 0.40 - 1.10 [facility] GFR/1.73 sq M predicted among non-blacks MDRD (S/P/Bld) [Vol rate/Area] The eGFR should be used for monitoring renal function only and not for medication dosing. [facility] GFR/1.73 sq M.predicted CKD-EPI (S/P/Bld) [Vol rate/Area] 47 Low >=60 mL/min/1.73 m2 [facility] Glucose [Mass/Vol] 90 mg/dL 65 - 99 mg/dL [facility] HCO3 [Moles/Vol] 31 mmol/L 21 - 32 mmol/L [facility] Interpretation and review of laboratory results Abnormal [facility] Potassium [Moles/Vol] 3.3 mmol/L Low 3.5 - 5.1 mmol/L [facility] Sodium [Moles/Vol] 138 mmol/L 135 - 145 mmol/L [facility] Urea nitrogen [Mass/Vol] 16 mg/dL 8 - 25 mg/dL [facility] Urea nitrogen/Creatinine [Mass ratio] 11.9 mg/mg [facility] CBCon 12-02-2020 Erythrocyte distribution width (RBC) [Entitic vol] 12.6 % 11.6 - 14.8 % [facility] Hematocrit (Bld) [Volume fraction] 41.1 % 36.0 - 46.0 % [facility] Hemoglobin (Bld) [Mass/Vol] 13.3 g/dL 12.0 - 16.0 g/dL [facility] Interpretation and review of laboratory results Abnormal [facility] MCH (RBC) [Entitic mass] 30.0 pg 26.0 - 34.0 pg [facility] MCHC (RBC) [Mass/Vol] 32.4 g/dL 31.0 - 37.0 g/dL [facility] MCV (RBC) [Entitic vol] 92.8 fL 80.0 - 100.0 fL [facility] Nucleated RBC (Bld) [#/Vol] 0.00 10*3/uL [facility] Nucleated RBC/100 WBC (Bld) [Ratio] 0.0 % [facility] Platelet mean volume (Bld) [Entitic vol] 10.5 fL 9.4 - 12.4 fL [facility] Platelets (Bld) [#/Vol] 118 10*3/uL Low [facility] RBC (Bld) [#/Vol] 4.43 10*6/uL [facility] WBC (Bld) [#/Vol] 5.33 10*3/uL [facility] CBC WITH AUTO DIFFERENTIALon 12-01-2020 Basophils (Bld) [#/Vol] 0.02 10*3/uL [facility] Basophils/100 WBC (Bld) 0.3 % [facility] Eosinophils (Bld) [#/Vol] 0.01 10*3/uL [facility] Eosinophils/100 WBC (Bld) 0.1 % [facility] Erythrocyte distribution width (RBC) [Entitic vol] 12.6 % 11.6 - 14.8 % [facility] Hematocrit (Bld) [Volume fraction] 40.7 % 36.0 - 46.0 % [facility] Hemoglobin (Bld) [Mass/Vol] 14.0 g/dL 12.0 - 16.0 g/dL [facility] Immature granulocytes (Bld) [#/Vol] 0.14 10*3/uL [facility] Immature granulocytes/100 WBC (Bld) 1.90 % [facility] Comment on above: The IG parameter is the percentage of metamyelocytes, myelocytes and promyelocytes. An immature granulocyte count (IG) of 1% or more suggests the possibility of infection, an IG count of 3% is very likely related to an infection. Interpretation and review of laboratory results Abnormal [facility] Lymphocytes (Bld) [#/Vol] 1.35 10*3/uL [facility] Lymphocytes/100 WBC (Bld) 18.1 % [facility] MCH (RBC) [Entitic mass] 30.0 pg 26.0 - 34.0 pg [facility] MCHC (RBC) [Mass/Vol] 34.4 g/dL 31.0 - 37.0 g/dL [facility] MCV (RBC) [Entitic vol] 87.2 fL 80.0 - 100.0 fL [facility] Monocytes (Bld) [#/Vol] 0.52 10*3/uL [facility] Monocytes/100 WBC (Bld) 7.0 % [facility] Neutrophils (Bld) [#/Vol] 5.40 10*3/uL [facility] Neutrophils/100 WBC (Bld) 72.6 % [facility] Nucleated RBC (Bld) [#/Vol] 0.00 10*3/uL [facility] Nucleated RBC/100 WBC (Bld) [Ratio] 0.0 % [facility] Platelet mean volume (Bld) [Entitic vol] 10.5 fL 9.4 - 12.4 fL [facility] Platelets (Bld) [#/Vol] 137 10*3/uL Low [facility] RBC (Bld) [#/Vol] 4.67 10*6/uL [facility] eah WBC (Bld) [#/Vol] 7.44 10*3/uL [facility] COVID-19/Influenza A,B Molec ularon 12-01-2020 Influ[facility] Not [facility]ed [facility] Interpretation and review of laboratory results Normal [facility] SARS-CoV-2 Not Detected Not Detected [facility] This test was perfor med under the [...] the following links: For Healthcare Providers: https://www.fda.gov/med ia/514511/download For Patients: https://www.fda.gov/med ia/503505/download [facility] CT CERVICAL SPINE WITHOUT CO NTRASTon 12-01-2020 1. No acute bone abnormality. 2. Multilevel mild-moderate degenerative disc disease. Workstation ID: [id number] [facility] Interface, Rad In Ronnie ji Speechq - 12/01/2020 1:16 PM EST [...] mild-moderate degenerative disc disease. Workstation ID: [id number] [facility] EXAMINATION: CT CERVICAL SPINE WITHOUT CONTRAST HISTORY: [...] of hemorrhage. PARASPINAL AREA: No visible mass. [facility] Chem 7on 12-01-2020 Anion gap [Moles/Vol] 12 mmol/L 10 - 2 0 mmol/L [facility] Chloride [Moles/Vol] 101 mmol/L 98 - 10 8 mmol/L [facility] Creatinine [Mass/Vol] 1.52 mg/dL High 0.40 - 1.10 [facility] GFR/1.73 sq M predicted among non-blacks MDRD (S/P/Bld) [Vol rate/Area] The eGFR should be used for monitoring renal function only and not for medication dosing. [facility] GFR/1.73 sq M.predicted CKD-EPI (S/P/Bld) [Vol rate/Area] 41 Low >=60 mL/min/1.73 m2 [facility] Glucose [Mass/Vol] 111 mg/dL High 65 - 99 mg/dL [facility] HCO3 [Moles/Vol] 26 mmol/L 21 - 32 mmol/L [facility] Potassium [Moles/Vol] 3.1 mmol/L Low 3.5 - 5.1 mmol/L [facility] Sodium [Moles/Vol] 136 mmol/L 135 - 145 mmol/L [facility] Urea nitrogen [Mass/Vol] 15 mg/dL 8 - 25 mg/dL [facility] Urea nitrogen/Creatinine [Mass ratio] 9.9 mg/mg Low [facility] Hepatic Function Panel (LFT) on 12-01-2020 Albumin [Mass/Vol] 3.8 g/dL 3.2 - 5.2 g/dL [facility] ALP [Catalytic activity/Vol] 72 U/L 40 - 150 U/L [facility] ALT [Catalytic activity/Vol] 21 U/L 14 - 65 U/L [facility] AST [Catalytic activity/Vol] 49 U/L High 0 - 45 U/L [facility] Bilirubin [Mass/Vol] 0.5 mg/dL 0.0 - 1 .3 mg/dL [facility] Bilirubin.conjugated [Mass/Vol] 0.1 mg/dL 0.0 - 0.4 mg/dL [facility] Protein [Mass/Vol] 7.2 g/dL 6.0 - 8.0 g/dL [facility] Otheron 12-01-2020 Extra Tube Hold for add-ons. [facility] Comment on above: Auto resulted. Interface, Rad In Ronnie coleman Speechq - 12/01/2020 1:19 PM EST EXAMINATION: [...] Left maxillary chronic sinusitis. Workstation ID: [id number] [facility] EXAMINATION: CT MAXILLOFACIAL WITHOUT CONTRAST; CT HEAD [...] of the right and left nasal bones. [facility] 1. Normal CT appeara nce of the brain. 2. Nondisplaced fractures of the right and left nasal bones. 3. Left maxillary chronic sinusitis. Workstation ID: [id number] [facility] Interpretation and review of laboratory results Abnormal [facility] TSH with Reflex Free T4on Interpretation and review of laboratory results Normal [facility] TSH Qn 4.18 m[IU]/L [facility] Complete Blood Count + Diffe rentialon 09-07-2019 Erythrocyte distribution width (RBC) [Ratio] 15.2 % above high threshold See Below [employer] Work Phone: Comment on above: Reference Range: 11. 5 - 14.5 Ordering Provider: Milagro PADRON [id number] Hematocrit (Bld) [Volume fraction] 38.5 % See Below [employer] and [facility] [address] [employer] Work Phone: Comment on above: Reference Range: 36. 0 - 46.0 Ordering Provider: Milagro PADRON 91771 Hemoglobin (Bld) [Mass/Vol] 13.1 g/dL See Below [employer] and [address] [employer] Work Phone: Comment on above: Reference Range: 12. 0 - 16.0 Ordering Provider: Milagro PADRON 97795 MCHC (RBC) [Mass/Vol] 34.0 g/dL See Below [facility] [employer] Work Phone: Comment on above: Reference Range: 32. 0 - 36.0 Ordering Provider: Milagro PADRON 44583 MCV (RBC) [Entitic vol] 91 fL 80 - 100 [employer] and [employer] Work Phone: Comment on above: Ordering Provider: Milagro PADRON 87198 Platelets (Bld) [#/Vol] 92 {x10E9/L} below low threshold 150 - 450 [employer] [facility] [employer] Work Phone: Comment on above: Ordering Provider: Milagro PADRON 00202 RBC (Bld) [#/Vol] 4.25 {x10E12/L} See Below [facility] and [employer] Work Phone: Comment on above: Reference Range: 4.0 0 - 5.20 Ordering Provider: Milagro KELLYREN 34750 WBC (Bld) [#/Vol] 5.9 {x10E9/L} 4.4 - 11.3 [facility] and [employer] Work Phone: Comment on above: Ordering Provider: Milagro PADRON 23256 Complete Blood Count + Differential SEE MANUAL DIFF [employer] and [employer] Work Phone: Comment on above: Ordering Provider: Milagro PADRON 03855 Hematologyon 09-07-2019 Band form neutrophils/100 WBC (Bld) 1.0 % 0.0 - 5.0 [employer] [facility] [employer] Work Phone: Comment on above: Ordering Provider: D AVID BAEHREN 98512 Basophils (Bld) [#/Vol] 0.00 {x10E9/L} See Below [employer] Phone: Comment on above: Reference Range: 0.0 0 - 0.10 Ordering Provider: D AVID BAEHREN 92242 Basophils/100 WBC (Bld) 0.0 % 0.0 - 2.0 [employer] Phone: Comment on above: Ordering Provider: D AVID BAEHREN 04281 Eosinophils (Bld) [#/Vol] 0.00 {x10E9/L} See Below [employer] Phone: Comment on above: Reference Range: 0.0 0 - 0.70 Ordering Provider: D AVID BAEHREN 45683 Eosinophils/100 WBC (Bld) 0.0 % 0.0 - 6.0 [employer] Phone: Comment on above: Ordering Provider: D AVID BAEHREN 85038 Lymphocytes (Bld) [#/Vol] 1.59 {x10E9/L} See Below [employer] Phone: Comment on above: Reference Range: 1.2 0 - 4.80 Ordering Provider: D AVID BAEHREN 32879 Lymphocytes/100 WBC (Bld) 27.0 % See Below [employer] Phone: Comment on above: Reference Range: 13. 0 - 44.0 Ordering Provider: D AVID BAEHREN 53385 Monocytes (Bld) [#/Vol] 0.41 {x10E9/L} See Below [employer] Phone: Comment on above: Reference Range: 0.1 0 - 1.00 Ordering Provider: D AVID BAEHREN 69209 Monocytes/100 WBC (Bld) 7.0 % 2.0 - 10.0 [employer] Phone: Comment on above: Ordering Provider: Milagro AVID BAEHREN 53141 Lipase, Serumon 09-07-2019 Lipase [Catalytic activity/Vol] 40 U/L 9 - 82 [facility] [employer] Work Phone: Comment on above: Venipuncture immedia tely after or during the administration of Metamizole may lead to falsely low results. Testing should be performed immediately prior to Metamizole dosing. T-jcpvtp-m-benzoquinone imine (metabolite of Acetaminophen) will generate erroneously low results in samples for patients that have taken toxic doses of acetaminophen. Ordering Provider: Milagro AVID BAEHREN 16994 Metabolic Panelon 09-07-2019 ALP [Catalytic activity/Vol] 55 U/L 33 - 110 [facility] [employer] Work Phone: Comment on above: Ordering Provider: D AVID BAEHREN 15169 Anion gap [Moles/Vol] 13 mmol/L 10 - 20 [facility] Work Phone: Comment on above: Ordering Provider: D AVID BAEHREN 88522 Bilirubin [Mass/Vol] 0.3 mg/dL 0.0 - 1.2 [facility] [address] [employer] Work Phone: Comment on above: Ordering Provider: D AVID BAEHREN 29014 Calcium [Mass/Vol] 9.7 mg/dL 8.6 - 10.3 [facility] [address] Work Phone: Comment on above: Ordering Provider: D AVID BAEHREN 15028 Chloride [Moles/Vol] 97 mmol/L below low threshold 98 - 107 [facility] Work Phone: Comment on above: Ordering Provider: D AVID BAEHREN 52337 CO2 [Moles/Vol] 32 mmol/L 21 - 32 [facility] [address] Work Phone: Comment on above: Ordering Provider: D AVID BAEHREN 75655 Creatinine [Mass/Vol] 1.47 mg/dL above high threshold See Below [facility] Work Phone: Comment on above: Reference Range: 0.5 0 - 1.05 Ordering Provider: Milagro PADRON 24669 Glucose [Mass/Vol] 94 mg/dL 74 - 99 [facility] Work Phone: Comment on above: Ordering Provider: Milagro PADRON 00661 Potassium [Moles/Vol] 4.4 mmol/L 3.5 - 5.3 [facility] Work Phone: Comment on above: Ordering Provider: Milagro PADRON 59794 Protein [Mass/Vol] 6.3 g/dL below low threshold 6.4 - 8.2 [facility] Work Phone: Comment on above: Ordering Provider: Milagro PADRON 97731 Sodium [Moles/Vol] 138 mmol/L 136 - 145 [facility] Work Phone: Comment on above: Ordering Provider: Milagro PADRON 68815 Urea nitrogen [Mass/Vol] 20 mg/dL 6 - 23 [facility] Work Phone: Comment on above: Ordering Provider: Milagro PADRON 62621 Otheron 09-07-2019 Albumin BCP dye [Mass/Vol] 4.1 g/dL 3.4 - 5.0 [facility] Work Phone: Comment on above: Ordering Provider: Milagro PADRON 79527 ALT With P-5'-P [Catalytic activity/Vol] 19 U/L 7 - 45 [facility] Work Phone: Comment on above: Patients treated wit h Sulfasalazine may generate falsely decreased results for ALT. Ordering Provider: Milagro PADRON 61178 AST With P-5'-P [Catalytic activity/Vol] 21 U/L 9 - 39 [facility] Work Phone: Comment on above: Ordering Provider: D AVID BAEHREN 78998 Segmented neutrophils/100 WBC (Bld) 65.0 % See Below [facility] Work Phone: Comment on above: Reference Range: 40. 0 - 80.0 Percent differential counts (%) should be interpreted in the context of the absolute cell counts (cells/L). Ordering Provider: Milagro AVID BAEHREN 06666 38 {mL/min/1.73m2} Abnormal >60 [facility] Work Phone: Comment on above: Ordering Provider: Milagro AVID BAEHREN 07045 46 {mL/min/1.73m2} Abnormal >60 [facility] Work Phone: Comment on above: CALCULATIONS OF FRIEDA MATED GFR ARE PERFORMED USING THE MDRD STUDY EQUATION FOR THE IDMS-TRACEABLE CREATININE METHODS. CLIN CHEM 2007;53:766-72 Ordering Provider: Milagro ESPINOZA BAEHREN 35231 NORMAL [facility] Work Phone: Comment on above: Ordering Provider: Milagro ESPINOZA BAEHREN 87266 3.90 {x10E9/L} See Below [facility] Work Phone: Comment on above: Reference Range: 1.2 0 - 7.70 Ordering Provider: Milagro ESPINOZA BAEHREN 71780 3.84 {x10E9/L} See Below [facility] Work Phone: Comment on above: Reference Range: 1.2 0 - 7.00 Ordering Provider: Milagro ESPINOZA BAEHREN 61580 0.06 {x10E9/L} See Below [facility] Work Phone: Comment on above: Reference Range: 0.0 0 - 0.70 Ordering Provider: Milagro PADRON 73034 Otheron 08-21-2019 XR Knee 4 views Interpreted by: TARUN JARA08/20/19 22:23MRN: [id number] Name: REEMA SHAH STUDY:KNEE; COMPLT, 4 OR MORE VIEWS;Left; 08/20/2019 10:00 pm INDICATION:fall. COMPARISON:None. ORDERING CLINICIAN:TENISHA LANE FINDINGS:Four views left knee. No acute fracture or malalignment. Bones appear normally mineralized.No significant degenerative changes. No knee effusion. Soft tissuesare within normal limits. IMPRESSION:Normal left knee radiography. Electronically signed by: HEIDY JARA 08/20/19 22:23 Normal [facility] Work Phone: Comment on above: Ordering Provider: Maria G L[address] [address] Otheron 08-20-2019 CT Head limited WO contrast Interpreted by: HEIDY JARA08/20/19 22:22MRN: [id number] Name: REEMA SHAH STUDY:CT HEAD WO CONTRAST; CT C-SPINE WO CONTRAST;; 08/20/2019 9:58 pm INDICATION:fall. COMPARISON:03/18/[address] cervical spine from 03/16/2019. [id number] ORDERING CLINICIAN:TENISHA LANE TECHNIQUE:Noncontrast CT exams of [...] JARA 08/20/19 22:22 Normal [facility] [employer] Work Phone: Comment on above: Ordering Provider: Maria G [address] [address] Interpreted by: TARUN JARA08/20/19 22:22MRN: [id number] Name: REEMA SHAH STUDY:CT HEAD WO CONTRAST; CT C-SPINE WO CONTRAST;; 08/20/2019 9:58 pm INDICATION:fall. COMPARISON:03/18/[address] cervical spine from 03/16/2019. [id number] ORDERING CLINICIAN:TENISHA LANE TECHNIQUE:Noncontrast CT exams of [...] JARA 08/20/19 22:22 Normal [facility] [employer] Work Phone: Comment on above: Ordering Provider: Maria G [address] [address] Otheron 08-03-2019 Interpreted by: STACY NAVARRO HRNVNLFD41/17/19 22:49MRN: [id number] Name: REEMA SHAH STUDY:US PELVIS TRANSABDOMINAL WITH [...] signed by: TIFFANIE PARK 08/03/19 22:49 Normal [facility] and [facility] [address] [facility] Work Phone: Chlamydia GC by PCRon 2018 Chlamydia by PCR. Not Detected Normal Not Detected [facility] Comment on above: Result Comment: Xper t CT/NG Assay performance has not been evaluated in patients less than 14 years of age. Performed By: #### 1 [id number] #### BARRY WilcoxHemcorky [address] [place], [place] [id number] Gonorrhoeae by PCR Not Detected Normal Not Detected [facility] Comment on above: Result Comment: Xper t CT/NG Assay performance has not been evaluated in patients less than 14 years of age. Performed By: #### 1 [id number] #### BARRY WilcoxHemo [address] [place] [address] [address] Abdomen/Pelvis w/ Contras ton 07-05-2019 CT Abdomen/Pelvis w/ Contrast Exam Date/Time: 07/05/2019 13:33 EDT Reason for Exam: ABDOMINAL PAIN AND TENDERNESS Report STUDY: CT Abdomen/Pelvis w/ Contrast; 07/05/2019 1:33 pm INDICATION: ABDOMINAL PAIN AND TENDERNESS. COMPARISON: 12/02/2018 ACCESSION NUMBER(S): [id number] ORDERING CLINICIAN: Jeanie Ayala TECHNIQUE: Contiguous axial [...] Signed by: Andrey Sunshine MD Technologist: NABEEL, Normal [facility] BMPon 03-25-2019 Anion gap [Moles/Vol] 10 mmol/L Normal 10-20 [facility] Comment on above: Performed By: #### 1 [id number] #### BARRY RemHemo [address] [place] [address] Calcium [Mass/Vol] 8.7 mg/dL Normal 8.6-10.3 [facility] Comment on above: Performed By: #### 1 [id number] #### BARRY RemHemo [address] [place] [address] Chloride [Moles/Vol] 108 mmol/L High 98-107 [facility] Comment on above: Performed By: #### 1 [id number] #### BARRY RemHemo [address] [place] [address] CO2 [Moles/Vol] 25.0 mmol/L Normal 21.0-32.0 [facility] Comment on above: Performed By: #### 1 [id number] #### BARRY RemHemo [address] [place] [address] Creatinine [Mass/Vol] 1.2 mg/dL High 0.5-1.1 [facility] Comment on above: Performed By: #### 1 [id number] #### BARRY RemHemo [address] [place] [address] Glucose [Mass/Vol] 97 mg/dL Normal 70-99 [facility] Comment on above: Performed By: #### 1 [id number] #### BARRY RemHemo [address] [place] [address] Potassium [Moles/Vol] 4.5 mmol/L Normal 3.5-5.3 [facility] Comment on above: Performed By: #### 1 [id number] #### BARRY RemHemo [address] [place] [address] Sodium [Moles/Vol] 138 mmol/L Normal 136-145 [facility] Comment on above: Performed By: #### 1 [id number] #### BARRY RemHemo [address] [place] [address] Urea nitrogen [Mass/Vol] 14 mg/dL Normal 6-23 [facility] Comment on above: Performed By: #### 1 [id number] #### BARRY WilcoxHemo [address] [place] [address] Urea nitrogen/Creatinine [Mass ratio] 11.7 ratio Normal 5.4-30.0 [facility] Comment on above: Performed By: #### 1 [id number] #### BARRY Kenyono [address] [place], [place] [id number] Magnesiumon 03-25-2019 Magnesium [Mass/Vol] 2.0 mg/dL Normal 1.6-2.4 [facility] Comment on above: Performed By: #### 1 [id number] #### BARRY WilcoxHemo [address] [place], [place] [address] eGFRon 03-25-2019 GFR/1.73 sq M predicted among non-blacks MDRD (S/P/Bld) [Vol rate/Area] mL/min/{1.73_m2} Normal [facility] Comment on above: Order Comment: Order Added by Discern Expert. Performed By: #### 1 [id number] #### BARRY WilcoxHemo [address] [place] [address] GFR/1.73 sq M predicted among non-blacks MDRD (S/P/Bld) [Vol rate/Area] 50 mL/min/1.73 m2 Normal [facility] Comment on above: Order Comment: Order Added by Discern Expert. Performed By: #### 1 [id number] #### BARRY WilcoxHemo [address] [place], [place] [id number] Auto Diffon 03-24-2019 Basophils (Bld) [#/Vol] 0.0 E3/mcL Normal 0.0-0.2 [facility] Comment on above: Order Comment: Order Added by Discern Expert. Performed By: #### 1 [id number] #### BARRY WilcoxHemo [facility] [place] [id number] Basophils/100 WBC (Bld) 0.1 % Normal 0.0-2.0 [facility] Comment on above: Order Comment: Order Added by Discern Expert. Performed By: #### 1 [id number] #### BARRY RemHemo [address] [place] [address] Eos Absolute 0.1 E3/mcL Normal 0.0-0.7 [facility] Comment on above: Order Comment: Order Added by Discern Expert. Performed By: #### 1 [id number] #### BARRY RemHemo [address] [place] [address] Eosinophils/100 WBC (Bld) 1.7 % Normal 0.0-11.0 [facility] Comment on above: Order Comment: Order Added by Discern Expert. Performed By: #### 1 [id number] #### BARRY RemHemo [address] [place] [address] Lymphocytes (Bld) [#/Vol] 1.3 E3/mcL Normal 1.2-3.4 [facility] Comment on above: Order Comment: Order Added by Discern Expert. Performed By: #### 1 [id number] #### BARRY RemHemo [address] [place] [address] Lymphocytes/100 WBC (Bld) 33.8 % Normal 20.0-55.0 [facility] Comment on above: Order Comment: Order Added by Discern Expert. Performed By: #### 1 [id number] #### BARRY RemHemo [address] [place] [address] [place] Absolute 0.4 E3/mcL Normal 0.0-0.7 [facility] Comment on above: Order Comment: Order Added by Discern Expert. Performed By: #### 1 [id number] #### BARRY RemHemo [address] [place] [address] Monocytes/100 WBC (Bld) 11.3 % High 0.0-10.0 [facility] Comment on above: Order Comment: Order Added by Discern Expert. Performed By: #### 1 [id number] #### BARRY RemHemo [address] [place] [address] Neutro Absolute 2.1 E3/mcL Normal 1.4-6.5 [facility] Comment on above: Order Comment: Order Added by Discern Expert. Performed By: #### 1 [id number] #### BARRY RemHemo [address] [place] [address] Neutro Auto 53.1 % Normal 37.0-75.0 [facility] Comment on above: Order Comment: Order Added by Discern Expert. Performed By: #### 1 [id number] #### BARRY WilcoxHemo [address] [place] [address] BMPon 03-24-2019 Anion gap [Moles/Vol] 9 mmol/L Low 10-20 [facility] Comment on above: Performed By: #### 1 [id number] #### BARRY WilcoxHemo [address] [place] [address] Calcium [Mass/Vol] 8.2 mg/dL Low 8.6-10.3 [facility] Comment on above: Performed By: #### 1 [id number] #### BARRY WilcoxHemo [address] [place] [address] Chloride [Moles/Vol] 110 mmol/L High 98-107 [facility] Comment on above: Performed By: #### 1 [id number] #### BARRY RemHemo [address] [place] [address] CO2 [Moles/Vol] 23.0 mmol/L Normal 21.0-32.0 [facility] Comment on above: Performed By: #### 1 [id number] #### BARRY WilcoxHemo [address] [place] [address] Creatinine [Mass/Vol] 1.1 mg/dL Normal 0.5-1.1 [facility] Comment on above: Performed By: #### 1 [id number] #### BARRY RemHemo [address] [place] [address] Glucose [Mass/Vol] 92 mg/dL Normal 70-99 [facility] Comment on above: Performed By: #### 1 [id number] #### BARRY RemHemo [address] [place] [address] Potassium [Moles/Vol] 4.1 mmol/L Normal 3.5-5.3 [facility] Comment on above: Performed By: #### 1 [id number] #### BARRY RemHemo [address] [place] [address] Sodium [Moles/Vol] 138 mmol/L Normal 136-145 [facility] Comment on above: Performed By: #### 1 [id number] #### BARRY WilcoxHemo [address] [place] [address] Urea nitrogen [Mass/Vol] 11 mg/dL Normal 6-23 [facility] Comment on above: Performed By: #### 1 [id number] #### BARRY WilcoxHemo [address] [place] [address] Urea nitrogen/Creatinine [Mass ratio] 10.0 ratio Normal 5.4-30.0 [facility] Comment on above: Performed By: #### 1 [id number] #### BARRY WilcoxHemo [address] [place] [address] CBC w/ Auto Diffon 9 Erythrocyte distribution width (RBC) [Ratio] 13.4 % Normal 11.5-14.5 [facility] Comment on above: Performed By: #### 1 [id number] #### BARRY WilcoxHemo [address] [place] [address] Hematocrit (Bld) [Volume fraction] 36.3 % Normal 36.0-48.0 [facility] Comment on above: Performed By: #### 1 [id number] #### BARRY WilcoxHemo [address] [place] [address] Hemoglobin (Bld) [Mass/Vol] 12.3 g/dL Normal 12.0-16.0 [facility] Comment on above: Performed By: #### 1 [id number] #### BARRY WilcoxHemo [address] [place] [address] MCH (RBC) [Entitic mass] 30.4 pg Normal 27.0-31.0 [facility] Comment on above: Performed By: #### 1 [id number] #### BARRY RemHemo [address] [place] [address] MCHC (RBC) [Mass/Vol] 33.7 g/dL Normal 33.0-37.0 [facility] Comment on above: Performed By: #### 1 [id number] #### BARRY RemHemo [address] [place] [address] MCV (RBC) [Entitic vol] 90.1 fL Normal 78.0-100.0 [facility] Comment on above: Performed By: #### 1 [id number] #### BARRY WilcoxHemo [address] [place] [address] Platelet mean volume (Bld) [Entitic vol] 8.3 fL Normal 7.4-11.0 [facility] Comment on above: Performed By: #### 1 [id number] #### BARRY WilcoxHemo [address] [place] [address] Platelets (Bld) [#/Vol] 101 E3/mcL Low 130-400 [facility] Comment on above: Performed By: #### 1 [id number] #### BARRYShawn WilcoxHemo [facility] [place] [address] RBC (Bld) [#/Vol] 4.04 E6/mcL Normal 3.90-5.40 [facility] Comment on above: Performed By: #### 1 [id number] #### BARRYShawn WilcoxHemo [address] [place] [address] WBC (Bld) [#/Vol] 3.9 E3/mcL Normal 3.6-11.0 [facility] Comment on above: Performed By: #### 1 [id number] #### BARRYShawn WilcoxHemo [address] [place] [address] Magnesiumon 03-24-2019 Magnesium [Mass/Vol] 2.1 mg/dL Normal 1.6-2.4 [facility] Comment on above: Performed By: #### 1 [id number] #### BARRYShawn WilcoxHemo [address] [place] [address] eGFRon 03-24-2019 GFR/1.73 sq M predicted among non-blacks MDRD (S/P/Bld) [Vol rate/Area] 55 mL/min/1.73 m2 Normal [facility] Comment on above: Order Comment: Order Added by Discern Expert. Performed By: #### 1 [id number] #### BARRY WilcoxHemo [address] [place] [address] GFR/1.73 sq M predicted among non-blacks MDRD (S/P/Bld) [Vol rate/Area] mL/min/{1.73_m2} Normal [facility] Comment on above: Order Comment: Order Added by Discern Expert. Performed By: #### 1 [id number] #### BARRY Kenyono [address] [place] [address] .Manual Abson 03-23-2019 Basophil Abs Man 0.0 10x3/ Normal 0.0-0.2 [facility] Comment on above: Order Comment: Order Added by Katya Expert. Performed By: #### 1 [id number] #### BARRY Kenyono [facility] [place] [address] Eos Abs Man 0.0 10x3/ Normal 0.0-0.5 [facility] Comment on above: Order Comment: Order Added by Katya Expert. Performed By: #### 1 [id number] #### BARRY Kenyono [address] [place] [address] Lymph Abs Man 1.6 10x3/ Normal 1.2-3.4 [facility] Comment on above: Order Comment: Order Added by Katya Expert. Performed By: #### 1 [id number] #### BARRY Kenyono [address] [place] [address] [place] Abs Man 0.1 10x3/ Normal 0.0-0.7 [facility] Comment on above: Order Comment: Order Added by Discern Expert. Performed By: #### 1 [id number] #### [place] [address] Segs Abs Man 1.3 10x3/ Low 1.4-6.5 [facility] Comment on above: Order Comment: Order Added by Katya Expert. Performed By: #### 1 [id number] #### BARRY Kenyono [address] [place] [address] BMPon 03-23-2019 Anion gap [Moles/Vol] 8 mmol/L Low 10-20 [facility] Comment on above: Performed By: #### 1 [id number] #### BARRY Kenyono [address] [place] [address] Calcium [Mass/Vol] 7.8 mg/dL Low 8.6-10.3 [facility] Comment on above: Performed By: #### 1 [id number] #### BARRY Kenyono [address] [place] [address] Chloride [Moles/Vol] 111 mmol/L High 98-107 [facility] Comment on above: Performed By: #### 1 [id number] #### BARRY RemHemo [address] [place] [address] CO2 [Moles/Vol] 22.0 mmol/L Normal 21.0-32.0 [facility] Comment on above: Performed By: #### 1 [id number] #### BARRY RemHemo [address] [place] [address] Creatinine [Mass/Vol] 1.1 mg/dL Normal 0.5-1.1 [facility] Comment on above: Performed By: #### 1 [id number] #### BARRY RemHemo [address] [place] [address] Glucose [Mass/Vol] 102 mg/dL High 70-99 [facility] Comment on above: Performed By: #### 1 [id number] #### BARRY WilcoxHemo [address] [place] [address] Potassium [Moles/Vol] 3.5 mmol/L Normal 3.5-5.3 [facility] Comment on above: Performed By: #### 1 [id number] #### BARRY RemHemo [address] [place] [address] Sodium [Moles/Vol] 138 mmol/L Normal 136-145 [facility] Comment on above: Performed By: #### 1 [id number] #### BARRY RemHemo [address] [place] [address] Urea nitrogen [Mass/Vol] 9 mg/dL Normal 6-23 [facility] Comment on above: Performed By: #### 1 [id number] #### BARRY RemHemo [address] [place] [address] Urea nitrogen/Creatinine [Mass ratio] 8.2 ratio Normal 5.4-30.0 [facility] Comment on above: Performed By: #### 1 [id number] #### BARRY RemHemo [address] [place] [address] CBC w/ Auto Diffon 9 Erythrocyte distribution width (RBC) [Ratio] 13.6 % Normal 11.5-14.5 [facility] Comment on above: Performed By: #### 1 [id number] #### BARRY RemHemo [address] [place] [address] Hematocrit (Bld) [Volume fraction] 36.9 % Normal 36.0-48.0 [facility] Comment on above: Performed By: #### 1 [id number] #### BARRY RemHemo [address] [place] [address] Hemoglobin (Bld) [Mass/Vol] 12.2 g/dL Normal 12.0-16.0 [facility] Comment on above: Performed By: #### 1 [id number] #### BARRY RemHemo [address] [place] [address] MCH (RBC) [Entitic mass] 30.1 pg Normal 27.0-31.0 [facility] Comment on above: Performed By: #### 1 [id number] #### BARRY RemHemo [address] [place] [address] MCHC (RBC) [Mass/Vol] 33.1 g/dL Normal 33.0-37.0 [facility] Comment on above: Performed By: #### 1 [id number] #### BARRY RemHemo [address] [place] [address] MCV (RBC) [Entitic vol] 91.0 fL Normal 78.0-100.0 [facility] Comment on above: Performed By: #### 1 [id number] #### BARRY RemHemo [address] [place] [address] Platelet mean volume (Bld) [Entitic vol] 8.3 fL Normal 7.4-11.0 [facility] Comment on above: Performed By: #### 1 [id number] #### BARRY RemHemo [address] [place] [address] Platelets (Bld) [#/Vol] 97 E3/mcL Low 130-400 [facility] Comment on above: Performed By: #### 1 [id number] #### BARRY RemHemo [address] [place] [address] RBC (Bld) [#/Vol] 4.05 E6/mcL Normal 3.90-5.40 [facility] Comment on above: Performed By: #### 1 [id number] #### BARRY RemHemo [address] [place] [address] WBC (Bld) [#/Vol] 3.0 E3/mcL Low 3.6-11.0 [facility] Comment on above: Performed By: #### 1 [id number] #### BARRY WilcoxHemo [address] [place] [address] Magnesiumon 03-23-2019 Magnesium [Mass/Vol] 2.9 mg/dL High 1.6-2.4 [facility] Comment on above: Performed By: #### 1 [id number] #### BARRY RemHemo [address] [place] [address] Manual Diffon 03-23-2019 Anisocytosis Ql (Bld) 1+ Normal [facility] Comment on above: Order Comment: Order Added by Discern Expert. Performed By: #### 1 [id number] #### BARRYShawn WilcoxHemo [address] [place] [address] Basophil Man 0 % Normal 0-1 [facility] Comment on above: Order Comment: Order Added by Discern Expert. Performed By: #### 1 [id number] #### BARRY RemHemo [address] [place] [address] Eosinophils/100 WBC (Bld) 0 % Normal 0-5 [facility] Comment on above: Order Comment: Order Added by Discern Expert. Performed By: #### 1 [id number] #### BARRY WilcoxHemo [address] [place] [address] Lymphocytes/100 WBC (Bld) 54 % High 14-48 [facility] Comment on above: Order Comment: Order Added by Discern Expert. Performed By: #### 1 [id number] #### BARRY RemHemo [address] [place] [address] Monocyte Man 4 % Normal 1-11 [facility] Comment on above: Order Comment: Order Added by Discern Expert. Performed By: #### 1 [id number] #### BARRY RemHemo [address] [place] [address] RBC morphology finding Nom (Bld) SEE MORPHOLOGY Normal [facility] Comment on above: Order Comment: Order Added by Discern Expert. Performed By: #### 1 [id number] #### BARRY WilcoxHemo [address] [place] [address] Segs Man 42 % Normal 37-75 [facility] Comment on above: Order Comment: Order Added by Discern Expert. Performed By: #### 1 [id number] #### BARRY WilcoxHemo [address] [place] [address] TSHon 03-23-2019 TSH Qn 2.75 mcIU/mL Normal 0.30-5.60 [facility] Comment on above: Performed By: #### 1 [id number] #### BARRY WilcoxHemo [facility] [place] [id number] Troponin-Ion 03-23-2019 Troponin I.cardiac [Mass/Vol] 0.01 ng/mL Normal 0.00-0.03 [facility] Comment on above: Order Comment: Order Added by Katya Expert. Performed By: #### 1 [id number] #### BARRY WilcoxHemo [facility] [place] [id number] XR Shoulder Complete Lefton 03-23-2019 XR Shoulder Complete Left Exam Date/Time: 03/23/2019 01:05 EDT Reason for Exam: Fall Report STUDY: XR Shoulder Complete Left;; 03/23/2019 1:05 am INDICATION: Fall. COMPARISON: None. ACCESSION NUMBER(S): [id number] ORDERING CLINICIAN: Narcisa Lo FINDINGS: Five views [...] Signed by: Lisa Rushing MD Technologist: JACKSON Normal [facility] eGFRon 03-23-2019 GFR/1.73 sq M predicted among non-blacks MDRD (S/P/Bld) [Vol rate/Area] mL/min/{1.73_m2} Normal [facility] Comment on above: Order Comment: Order Added by Katya Expert. Performed By: #### 1 [id number] #### BARRY WilcoxHemo [facility] [place] [address] GFR/1.73 sq M predicted among non-blacks MDRD (S/P/Bld) [Vol rate/Area] 56 mL/min/1.73 m2 Normal [facility] Comment on above: Order Comment: Order Added by Discern Expert. Performed By: #### 1 [id number] #### BARRY WilcoxHemo [facility] [place] [id number] zzplt morphon 03-23-2019 Platelet morphology finding Nom (Bld) NORMAL Normal [facility] Comment on above: Performed By: #### 1 [id number] #### BARRY WilcoxHemo [address] [place] [address] Platelets (Bld) [#/Vol] DECREASED Normal [facility] Comment on above: Performed By: #### 1 [id number] #### [place] [address] Auto Diffon 03-22-2019 Basophils (Bld) [#/Vol] 0.0 E3/mcL Normal 0.0-0.2 [facility] Comment on above: Order Comment: Order Added by Discern Expert. Performed By: #### 1 [id number] #### BARRY Kenyono [address] [place], [place] [address] Basophils/100 WBC (Bld) 0.4 % Normal 0.0-2.0 [facility] Comment on above: Order Comment: Order Added by Discern Expert. Performed By: #### 1 [id number] #### BARRY WilcoxHemo [address] [place] [address] Eos Absolute 0.1 E3/mcL Normal 0.0-0.7 [facility] Comment on above: Order Comment: Order Added by Discern Expert. Performed By: #### 1 [id number] #### BARRYShawn WilcoxHemo [address] [place], [place] [address] Eosinophils/100 WBC (Bld) 2.0 % Normal 0.0-11.0 [facility] Comment on above: Order Comment: Order Added by Discern Expert. Performed By: #### 1 [id number] #### BARRY RemHemo [address] [place] [address] Lymphocytes (Bld) [#/Vol] 1.1 E3/mcL Low 1.2-3.4 [facility] Comment on above: Order Comment: Order Added by Discern Expert. Performed By: #### 1 [id number] #### BARRY WilcoxHemo [address] [place] [address] Lymphocytes/100 WBC (Bld) 27.1 % Normal 20.0-55.0 [facility] Comment on above: Order Comment: Order Added by Discern Expert. Performed By: #### 1 [id number] #### BARRY RemHemo [address] [place] [address] [place] Absolute 0.5 E3/mcL Normal 0.0-0.7 [facility] Comment on above: Order Comment: Order Added by Discern Expert. Performed By: #### 1 [id number] #### BARRY WilcoxHemo [address] [place] [address] Monocytes/100 WBC (Bld) 11.0 % High 0.0-10.0 [facility] Comment on above: Order Comment: Order Added by Discern Expert. Performed By: #### 1 [id number] #### BARRY WilcoxHemo [address] [place] [address] Neutro Absolute 2.5 E3/mcL Normal 1.4-6.5 [facility] Comment on above: Order Comment: Order Added by Discern Expert. Performed By: #### 1 [id number] #### BARRY WilcoxHemo [address] [place] [address] Neutro Auto 59.5 % Normal 37.0-75.0 [facility] Comment on above: Order Comment: Order Added by Discern Expert. Performed By: #### 1 [id number] #### BARRY RemHemo [address] [place] [address] BMPon 03-22-2019 Anion gap [Moles/Vol] 13 mmol/L Normal 10-20 [facility] Comment on above: Performed By: #### 1 [id number] #### BARRYShawn WilcoxHemo [address] [place] [address] Calcium [Mass/Vol] 8.4 mg/dL Low 8.6-10.3 [facility] Comment on above: Performed By: #### 1 [id number] #### BARRY RemHemo [address] [place] [address] Chloride [Moles/Vol] 110 mmol/L High 98-107 [facility] Comment on above: Performed By: #### 1 [id number] #### BARRY RemHemo [address] [place] [address] CO2 [Moles/Vol] 21.0 mmol/L Normal 21.0-32.0 [facility] Comment on above: Performed By: #### 1 [id number] #### BARRY RemHemo [address] [place] [address] Creatinine [Mass/Vol] 1.1 mg/dL Normal 0.5-1.1 [facility] Comment on above: Performed By: #### 1 [id number] #### BARRY RemHemo [address] [place] [address] Glucose [Mass/Vol] 95 mg/dL Normal 70-99 [facility] Comment on above: Performed By: #### 1 [id number] #### ABRRY RemHemo [address] [place] [address] Potassium [Moles/Vol] 4.0 mmol/L Normal 3.5-5.3 [facility] Comment on above: Performed By: #### 1 [id number] #### BARRY RemHemo [address] [place] [address] Sodium [Moles/Vol] 139 mmol/L Normal 136-145 [facility] Comment on above: Performed By: #### 1 [id number] #### BARRY RemHemo [address] [place] [address] Urea nitrogen [Mass/Vol] 10 mg/dL Normal 6-23 [facility] Comment on above: Performed By: #### 1 [id number] #### BARRY RemHemo [address] [place] [address] Urea nitrogen/Creatinine [Mass ratio] 9.1 ratio Normal 5.4-30.0 [facility] Comment on above: Performed By: #### 1 [id number] #### BARRY RemHemo [address] [place] [address] CBC w/ Auto Diffon 9 Erythrocyte distribution width (RBC) [Ratio] 13.5 % Normal 11.5-14.5 [facility] Comment on above: Performed By: #### 1 [id number] #### BARRY WilcoxHemo [facility] [place] [address] Hematocrit (Bld) [Volume fraction] 37.5 % Normal 36.0-48.0 [facility] Comment on above: Performed By: #### 1 [id number] #### BARRY WilcoxHemo [facility] [place] [address] Hemoglobin (Bld) [Mass/Vol] 12.8 g/dL Normal 12.0-16.0 [facility] Comment on above: Performed By: #### 1 [id number] #### BARRY WilcoxHemo [address] [place] [address] MCH (RBC) [Entitic mass] 30.9 pg Normal 27.0-31.0 [facility] Comment on above: Performed By: #### 1 [id number] #### BARRY WilcoxHemo [address] [place] [address] MCHC (RBC) [Mass/Vol] 34.1 g/dL Normal 33.0-37.0 [facility] Comment on above: Performed By: #### 1 [id number] #### BARRY WilcoxHemo [address] [place] [address] MCV (RBC) [Entitic vol] 90.6 fL Normal 78.0-100.0 [facility] Comment on above: Performed By: #### 1 [id number] #### BARRY RemHemo [address] [place] [address] Platelet mean volume (Bld) [Entitic vol] 8.3 fL Normal 7.4-11.0 [facility] Comment on above: Performed By: #### 1 [id number] #### BARRY RemHemo [facility] [place] [address] Platelets (Bld) [#/Vol] 113 E3/mcL Low 130-400 [facility] Comment on above: Performed By: #### 1 [id number] #### BARRY Rem[address] [address] RBC (Bld) [#/Vol] 4.14 E6/mcL Normal 3.90-5.40 [facility] Comment on above: Performed By: #### 1 [id number] #### BARRY [address] [address] WBC (Bld) [#/Vol] 4.1 E3/mcL Normal 3.6-11.0 [facility] Comment on above: Performed By: #### 1 [id number] #### BARRY [address] [address] Magnesiumon 03-22-2019 Magnesium [Mass/Vol] 1.6 mg/dL Normal 1.6-2.4 [facility] Comment on above: Performed By: #### 1 [id number] #### BARRY [address] [address] Troponin-Ion 03-22-2019 Troponin I.cardiac [Mass/Vol] 0.01 ng/mL Normal 0.00-0.03 [facility] Comment on above: Performed By: #### 1 [id number] #### BARRY [address] [address] XR Chest AP Portableon 03-22 XR Chest AP Portable Exam Date/Time: 03/22/2019 20:26 EDT Reason for Exam: Chest pain Report STUDY: XR Chest AP Portable; 03/22/2019 8:26 pm INDICATION: Chest pain. COMPARISON: 12/21/2018 ACCESSION NUMBER(S): [id number] ORDERING CLINICIAN: Xuan Garcia FINDINGS: Single portable [...] pm Signed by: Lacy Alvarez MD Technologist: [facility] eGFRon 03-22-2019 GFR/1.73 sq M predicted among non-blacks MDRD (S/P/Bld) [Vol rate/Area] mL/min/{1.73_m2} Normal [facility] Comment on above: Order Comment: Order Added by Discern Expert. Performed By: #### 1 [id number] #### BARRY RemHemo [address] [place] [address] GFR/1.73 sq M predicted among non-blacks MDRD (S/P/Bld) [Vol rate/Area] 52 mL/min/1.73 m2 Normal [facility] Comment on above: Order Comment: Order Added by Discern Expert. Performed By: #### 1 [id number] #### BARRY RemHemo [address] [place] [address] UA Completeon 03-19-2019 Color (U) Yellow Normal Yellow [facility] Comment on above: Order Comment: Order Added by Discern Expert. Performed By: #### 1 [id number] #### BARRY RemHemo [address] [place] [address] Glucose (U) [Mass/Vol] Negative Normal Negative [facility] Comment on above: Order Comment: Order Added by Discern Expert. Performed By: #### 1 [id number] #### BARRY RemHemo [facility] [place] [address] Ketones Ql (U) Negative Normal Negative [facility] Comment on above: Order Comment: Order Added by Discern Expert. Performed By: #### 1 [id number] #### BARRY RemHemo [facility] [place] [address] RBC (U) [#/Vol] 0-3 Normal 0-3 [facility] Comment on above: Order Comment: Order Added by Discern Expert. Performed By: #### 1 [id number] #### BARRY RemHemo [address] [place] [id number] UA Blood Negative Normal Negative [facility] Comment on above: Order Comment: Order Added by Discern Expert. Performed By: #### 1 [id number] #### BARRY RemHemo [address] [place] [id number] UA Clarity SltCloudy Abnormal Clear [facility] Comment on above: Order Comment: Order Added by Discern Expert. Performed By: #### 1 [id number] #### BARRY RemHemo [address] [place] [address] UA Hyal Cast 3-5 Abnormal 0-2 [facility] Comment on above: Order Comment: Order Added by Discern Expert. Performed By: #### 1 [id number] #### BARRY RemHemo [address] [place] [address] UA Leuk Est 1+ Abnormal Negative [facility] Comment on above: Order Comment: Order Added by Discern Expert. Performed By: #### 1 [id number] #### BARRY RemHemo [address] [place] [address] UA Mucous Trace Abnormal Trace [facility] Comment on above: Order Comment: Order Added by Discern Expert. Performed By: #### 1 [id number] #### BARRY RemHemo [address] [place] [address] UA Nitrite Negative Normal Negative [facility] Comment on above: Order Comment: Order Added by Discern Expert. Performed By: #### 1 [id number] #### BARRY RemHemo [address] [place] [address] UA pH 5.0 Normal 4.6-8.0 [facility] Comment on above: Order Comment: Order Added by Discern Expert. Performed By: #### 1 [id number] #### BARRY RemHemo [address] [place] [address] UA Protein Negative Normal Negative [facility] Comment on above: Order Comment: Order Added by Discern Expert. Performed By: #### 1 [id number] #### BARRY RemHemo [address] [place] [address] UA Spec Grav 1.010 Normal 1.003-1.030 [facility] Comment on above: Order Comment: Order Added by Katya Expert. Performed By: #### 1 [id number] #### BARRY RemHemo [address] [place] [address] UA Squam Epithelial 10-20 Abnormal 0-5 [facility] Comment on above: Order Comment: Order Added by Katya Expert. Performed By: #### 1 [id number] #### BARRY RemHemo [address] [place], [place] [address] UA Urobilinogen Negative Normal [facility] Comment on above: [...] within 24 hours. Performed By: #### 1 [id number] #### BARRY WilcoxHemo [address] [place] [address] UA WBC 0-5 Normal 0-5 [facility] Comment on above: Order Comment: Order Added by Katya Expert. Performed By: #### 1 [id number] #### [facility] [address] [place] [address] Urobilinogen Qn (U) Negative Normal Negative [facility] Comment on above: Order Comment: Order Added by Katya Expert. Performed By: #### 1 [id number] #### BARRY JeriHemo [address] [place] [address] Auto Diffon 03-18-2019 Basophils (Bld) [#/Vol] 0.0 E3/mcL Normal 0.0-0.2 [facility] Comment on above: Order Comment: Order Added by Katya Expert. Performed By: #### 1 [id number] #### BARRYShawn WilcoxHemo [address] [place], [place] [address] Basophils/100 WBC (Bld) 0.5 % Normal 0.0-2.0 [facility] Comment on above: Order Comment: Order Added by Katya Expert. Performed By: #### 1 [id number] #### BARRY WilcoxHemo [address] [place] [address] Eos Absolute 0.1 E3/mcL Normal 0.0-0.7 [facility] Comment on above: Order Comment: Order Added by Katya Expert. Performed By: #### 1 [id number] #### BARRY JeriHemo [address] [place], [place] [address] Eosinophils/100 WBC (Bld) 2.2 % Normal 0.0-11.0 [facility] Comment on above: Order Comment: Order Added by Discern Expert. Performed By: #### 1 [id number] #### BARRY WilcoxHemo [address] [place] [address] Lymphocytes (Bld) [#/Vol] 1.3 E3/mcL Normal 1.2-3.4 [facility] Comment on above: Order Comment: Order Added by Discern Expert. Performed By: #### 1 [id number] #### BARRY WilcoxHemo [address] [place] [address] Lymphocytes/100 WBC (Bld) 30.1 % Normal 20.0-55.0 [facility] Comment on above: Order Comment: Order Added by Discern Expert. Performed By: #### 1 [id number] #### BARRY RemHemo [address] [place] [address] [place] Absolute 0.4 E3/mcL Normal 0.0-0.7 [facility] Comment on above: Order Comment: Order Added by Discern Expert. Performed By: #### 1 [id number] #### BARRY WilcoxHemo [address] [place], [place] [address] Monocytes/100 WBC (Bld) 9.9 % Normal 0.0-10.0 [facility] Comment on above: Order Comment: Order Added by Discern Expert. Performed By: #### 1 [id number] #### BARRY WilcoxHemo [address] [place] [address] Neutro Absolute 2.5 E3/mcL Normal 1.4-6.5 [facility] Comment on above: Order Comment: Order Added by Discern Expert. Performed By: #### 1 [id number] #### BARRY WilcoxHemo [address] [place] [address] Neutro Auto 57.3 % Normal 37.0-75.0 [facility] Comment on above: Order Comment: Order Added by Discern Expert. Performed By: #### 1 [id number] #### BARRY WilcoxHemo [facility] [place] [id number] BMPon 03-18-2019 Anion gap [Moles/Vol] 11 mmol/L Normal 10-20 [facility] Comment on above: Performed By: #### 1 [id number] #### BARRY WilcoxHemo [facility] [place] [address] Calcium [Mass/Vol] 8.8 mg/dL Normal 8.6-10.3 [facility] Comment on above: Performed By: #### 1 [id number] #### BARRY WilcoxHemo [address] [place] [address] Chloride [Moles/Vol] 110 mmol/L High 98-107 [facility] Comment on above: Performed By: #### 1 [id number] #### BARRY WilcoxHemo [address] [place] [address] CO2 [Moles/Vol] 20.0 mmol/L Low 21.0-32.0 [facility] Comment on above: Performed By: #### 1 [id number] #### BARRY WilcoxHemo [address] [place] [address] Creatinine [Mass/Vol] 1.2 mg/dL High 0.5-1.1 [facility] Comment on above: Performed By: #### 1 [id number] #### BARRY RemHemo [address] [place] [address] Glucose [Mass/Vol] 90 mg/dL Normal 70-99 [facility] Comment on above: Performed By: #### 1 [id number] #### BARRY WilcoxHemo [address] [place] [address] Potassium [Moles/Vol] 4.0 mmol/L Normal 3.5-5.3 [facility] Comment on above: Performed By: #### 1 [id number] #### BARRY RemHemo [address] [place] [address] Sodium [Moles/Vol] 137 mmol/L Normal 136-145 [facility] Comment on above: Performed By: #### 1 [id number] #### BARRY RemHemo [address] [place] [address] Urea nitrogen [Mass/Vol] 9 mg/dL Normal 6-23 [facility] Comment on above: Performed By: #### 1 [id number] #### BARRY RemHemo [address] [place] [address] Urea nitrogen/Creatinine [Mass ratio] 7.5 ratio Normal 5.4-30.0 [facility] Comment on above: Performed By: #### 1 [id number] #### BARRY RemHemo [address] [place] [address] CBC w/ Auto Diffon Erythrocyte distribution width (RBC) [Ratio] 14.1 % Normal 11.5-14.5 [facility] Comment on above: Performed By: #### 1 [id number] #### BARRY RemHemo [address] [place] [address] Hematocrit (Bld) [Volume fraction] 40.4 % Normal 36.0-48.0 [facility] Comment on above: Performed By: #### 1 [id number] #### BARRY RemHemo [facility] [place] [address] Hemoglobin (Bld) [Mass/Vol] 13.4 g/dL Normal 12.0-16.0 [facility] Comment on above: Performed By: #### 1 [id number] #### BARRYShawn WilcoxHemo [address] [place] [address] MCH (RBC) [Entitic mass] 30.2 pg Normal 27.0-31.0 [facility] Comment on above: Performed By: #### 1 [id number] #### BARRY RemHemo [address] [place] [address] MCHC (RBC) [Mass/Vol] 33.1 g/dL Normal 33.0-37.0 [facility] Comment on above: Performed By: #### 1 [id number] #### BARRY RemHemo [facility] [place] [address] MCV (RBC) [Entitic vol] 91.3 fL Normal 78.0-100.0 [facility] Comment on above: Performed By: #### 1 [id number] #### BARRY RemHemo [address] [place] [address] Platelet mean volume (Bld) [Entitic vol] 8.0 fL Normal 7.4-11.0 [facility] Comment on above: Performed By: #### 1 [id number] #### BARRY RemHemo [address] [place] [address] Platelets (Bld) [#/Vol] 123 E3/mcL Low 130-400 [facility] Comment on above: Performed By: #### 1 [id number] #### BARRY RemHemo [address] [place] [address] RBC (Bld) [#/Vol] 4.43 E6/mcL Normal 3.90-5.40 [facility] Comment on above: Performed By: #### 1 [id number] #### BARRY RemHemo [address] [place] [address] WBC (Bld) [#/Vol] 4.3 E3/mcL Normal 3.6-11.0 [facility] Comment on above: Performed By: #### 1 [id number] #### BARRY RemHemo [address] [place] [address] CT Head or Brain w/o Contras ton 03-18-2019 CT Head or Brain w/o Contrast Exam Date/Time: 03/18/2019 21:34 EDT Reason for Exam: Altered mental status Report STUDY: CT Head or Brain w/o Contrast; 03/18/2019 9:34 pm INDICATION: Altered mental status. COMPARISON: 03/16/2019 ACCESSION NUMBER(S): [id number] ORDERING CLINICIAN: Ac Gao TECHNIQUE: Noncontrast CT [...] Signed by: Nicole Anderson MD Technologist: AM Normal [facility] Ionized Calcium Lvlon 2018 Ionized Ca. 4.5 mg/dL Normal 4.5-5.6 [facility] Comment on above: Performed By: #### 1 [id number] #### BARRY RemHemo [address] [place] [address] Ionized Calcium POC Orderon 03-18-2019 Ionized Calcium POC Order Collected Normal [facility] Comment on above: Performed By: #### 1 [id number] #### BARRY WilcoxHemo [address] [place] [address] eGFRon 03-18-2019 GFR/1.73 sq M predicted among non-blacks MDRD (S/P/Bld) [Vol rate/Area] 56 mL/min/1.73 m2 Normal [facility] Comment on above: Order Comment: Order Added by Discern Expert. Performed By: #### 1 [id number] #### BARRY WilcoxHemo [address] [place] [address] GFR/1.73 sq M predicted among non-blacks MDRD (S/P/Bld) [Vol rate/Area] 46 mL/min/1.73 m2 Normal [facility] Comment on above: Order Comment: Order Added by Discern Expert. Performed By: #### 1 [id number] #### BARRY RemHemo [address] [place] [address] Auto Diffon 03-16-2019 Basophils (Bld) [#/Vol] 0.0 E3/mcL Normal 0.0-0.2 [facility] Comment on above: Order Comment: Order Added by Discern Expert. Performed By: #### 1 [id number] #### BARRY RemHemo [address] [place] [address] Basophils/100 WBC (Bld) 0.9 % Normal 0.0-2.0 [facility] Comment on above: Order Comment: Order Added by Discern Expert. Performed By: #### 1 [id number] #### BARRY RemHemo [address] [place] [address] Eos Absolute 0.1 E3/mcL Normal 0.0-0.7 [facility] Comment on above: Order Comment: Order Added by Discern Expert. Performed By: #### 1 [id number] #### BARRY RemHemo [address] [place] [address] Eosinophils/100 WBC (Bld) 2.6 % Normal 0.0-11.0 [facility] Comment on above: Order Comment: Order Added by Discern Expert. Performed By: #### 1 [id number] #### BARRY RemHemo [address] [place] [address] Lymphocytes (Bld) [#/Vol] 1.0 E3/mcL Low 1.2-3.4 [facility] Comment on above: Order Comment: Order Added by Discern Expert. Performed By: #### 1 [id number] #### BARRY WilcoxHemo [address] [place] [address] Lymphocytes/100 WBC (Bld) 23.0 % Normal 20.0-55.0 [facility] Comment on above: Order Comment: Order Added by Discern Expert. Performed By: #### 1 [id number] #### BARRY WilcoxHemo [address] [place] [address] [place] Absolute 0.3 E3/mcL Normal 0.0-0.7 [facility] Comment on above: Order Comment: Order Added by Discern Expert. Performed By: #### 1 [id number] #### BARRY RemHemo [address] [place] [address] Monocytes/100 WBC (Bld) 6.8 % Normal 0.0-10.0 [facility] Comment on above: Order Comment: Order Added by Discern Expert. Performed By: #### 1 [id number] #### BARRY WilcoxHemo [address] [place] [address] Neutro Absolute 2.9 E3/mcL Normal 1.4-6.5 [facility] Comment on above: Order Comment: Order Added by Discern Expert. Performed By: #### 1 [id number] #### BARRY RemHemo [address] [place] [address] Neutro Auto 66.7 % Normal 37.0-75.0 [facility] Comment on above: Order Comment: Order Added by Katya Expert. Performed By: #### 1 [id number] #### BARRY RemHemo [address] [place] [address] B12/Folateon 03-16-2019 Cobalamin (Vitamin B12) mass conc 354 pg/mL 193 - 986 pg/mL [facility] Folate mass conc 6.9 ng/mL 3.1 - 17.5 ng/mL [facility] Comment on above: Deficient <2.2 Borderline 2.2 - 3.0 Excessive >17.5 Interpretation and review of laboratory results Normal [facility] CBC w/ Auto Diffon 9 Erythrocyte distribution width (RBC) [Ratio] 13.9 % Normal 11.5-14.5 [facility] Comment on above: Performed By: #### 1 [id number] #### BARRY WilcoxHemo [facility] [place] [address] Hematocrit (Bld) [Volume fraction] 40.6 % Normal 36.0-48.0 [facility] Comment on above: Performed By: #### 1 [id number] #### BARRY WilcoxHemo [facility] [place] [address] Hemoglobin (Bld) [Mass/Vol] 13.5 g/dL Normal 12.0-16.0 [facility] Comment on above: Performed By: #### 1 [id number] #### BARRY JeriHemo [address] [place] [address] MCH (RBC) [Entitic mass] 30.4 pg Normal 27.0-31.0 [facility] Comment on above: Performed By: #### 1 [id number] #### BARRY WilcoxHemo [address] [place] [address] MCHC (RBC) [Mass/Vol] 33.3 g/dL Normal 33.0-37.0 [facility] Comment on above: Performed By: #### 1 [id number] #### BARRY JeriHemo [address] [place] [address] MCV (RBC) [Entitic vol] 91.4 fL Normal 78.0-100.0 [facility] Comment on above: Performed By: #### 1 [id number] #### BARRY RemHemo [facility] [place] [address] Platelet mean volume (Bld) [Entitic vol] 8.3 fL Normal 7.4-11.0 [facility] Comment on above: Performed By: #### 1 [id number] #### BARRY RemHemo [facility]5 [place] [address] Platelets (Bld) [#/Vol] 118 E3/mcL Low 130-400 [facility] Comment on above: Performed By: #### 1 [id number] #### BARRY WilcoxHemo [address] [place] [address] RBC (Bld) [#/Vol] 4.45 E6/mcL Normal 3.90-5.40 [facility] Comment on above: Performed By: #### 1 [id number] #### BARRY Kenyono [facility]5 [place] [address] WBC (Bld) [#/Vol] 4.4 E3/mcL Normal 3.6-11.0 [facility] Comment on above: Performed By: #### 1 [id number] #### BARRY WilcoxHemo [facility]5 [place] [address] CMPon 03-16-2019 Albumin [Mass/Vol] 4.2 g/dL Normal 3.4-5.0 [facility] Comment on above: Performed By: #### 1 [id number] #### BARRY WilcoxHemo [address] [place] [address] Albumin/Globulin [Mass ratio] 1.7 {ratio} Normal 1.1-1.9 [facility] Comment on above: Performed By: #### 1 [id number] #### BARRY WilcoxHemo [address] [place] [address] Alk Phos 104 Int._Unit/L Normal 33-110 [facility] Comment on above: Performed By: #### 1 [id number] #### BARRY WilcoxHemo [facility] [place] [address] ALT [Catalytic activity/Vol] 31 Int._Unit/L Normal 7-45 [facility] Comment on above: Performed By: #### 1 [id number] #### BARRY WilcoxHemo [address] [place] [address] Anion gap [Moles/Vol] 12 mmol/L Normal 10-20 [facility] Comment on above: Performed By: #### 1 [id number] #### BARRY WilcoxHemo [address] [place] [address] AST [Catalytic activity/Vol] 37 Int._Unit/L Normal 9-39 [facility] Comment on above: Performed By: #### 1 [id number] #### BARRY RemHemo [address] [place] [address] Bili Total 0.79 mg/dL Normal 0.00-1.20 [facility] Comment on above: Performed By: #### 1 [id number] #### BARRY RemHemo [address] [place] [address] Calcium [Mass/Vol] 8.8 mg/dL Normal 8.6-10.3 [facility] Comment on above: Performed By: #### 1 [id number] #### BARRY RemHemo [address] [place] [address] Chloride [Moles/Vol] 110 mmol/L High 98-107 [facility] Comment on above: Performed By: #### 1 [id number] #### BARRY RemHemo [address] [place] [address] CO2 [Moles/Vol] 20.0 mmol/L Low 21.0-32.0 [facility] Comment on above: Performed By: #### 1 [id number] #### BARRY RemHemo [address] [place] [address] Creatinine [Mass/Vol] 1.2 mg/dL High 0.5-1.1 [facility] Comment on above: Performed By: #### 1 [id number] #### BARRY RemHemo [address] [place] [address] Globulin (S) [Mass/Vol] 3.0 g/dL Normal 2.0-4.0 [facility] Comment on above: Performed By: #### 1 [id number] #### BARRY RemHemo [address] [place] [address] Glucose [Mass/Vol] 114 mg/dL High 70-99 [facility] Comment on above: Performed By: #### 1 [id number] #### BARRY RemHemo [address] [place] [address] Potassium [Moles/Vol] 3.4 mmol/L Low 3.5-5.3 [facility] Comment on above: Performed By: #### 1 [id number] #### BARRY RemHemo [address] [place] [address] Protein [Mass/Vol] 6.7 g/dL Normal 6.4-8.2 [facility] Comment on above: Performed By: #### 1 [id number] #### BARRY WilcoxHemo [address] [place] [address] Sodium [Moles/Vol] 139 mmol/L Normal 136-145 [facility] Comment on above: Performed By: #### 1 [id number] #### BARRY RemHemo [address] [place] [address] Urea nitrogen [Mass/Vol] 9 mg/dL Normal 6-23 [facility] Comment on above: Performed By: #### 1 [id number] #### BARRY RemHemo [address] [place] [address] Urea nitrogen/Creatinine [Mass ratio] 7.5 ratio Normal 5.4-30.0 [facility] Comment on above: Performed By: #### 1 [id number] #### BARRY WilcoxHemo [address] [place] [address] CT COMPARISON IMPORTon 03-16 This order has been auto-finalized and does not contain a result. [facility] This order has been auto-finalized and does not contain a result. [facility] CT Head or Brain w/o Contras ton 03-16-2019 CT Head or Brain w/o Contrast Exam Date/Time: 03/16/2019 00:08 EDT Reason for Exam: Injury Report STUDY: CT Head or Brain w/o Contrast; 03/16/2019 12:46 am INDICATION: Injury. COMPARISON: 12/01/2018 ACCESSION NUMBER(S): [id number] ORDERING CLINICIAN: Caren Gilman TECHNIQUE: Noncontrast CT [...] Signed by: Nicole Anderson MD Technologist: TAM[facility] CT Spine Cervical w/o Contra anu 03-16-2019 CT Spine Cervical w/o Contrast Exam Date/Time: 03/16/2019 00:08 EDT Reason for Exam: Trauma Report STUDY: CT Spine Cervical w/o Contrast; 03/16/2019 12:46 am INDICATION: Trauma. COMPARISON: None. ACCESSION NUMBER(S): [id number] ORDERING CLINICIAN: Caren Gilman TECHNIQUE: Axial noncontrast [...] Signed by: Nicole Anderson MD Technologist: [facility] Lactic Acidon 03-16-2019 Lactate [Moles/Vol] 1.2 mmol/L Normal 0.4-2.0 [facility] Comment on above: Performed By: #### 1 [id number] #### BARRY RemHemo [address] [place] [address] Otheron 03-16-2019 Aleksey Bhardwaj MD 03/16/2019 4:19 PM [facility] EEG Report Reason for EEG: [...] epileptiform discharges or ictal activity was seen. [facility] POC Glucoseon 03-16-2019 Glucose mass conc 84 mg/dL 65 - 99 mg/dL [facility] Interpretation and review of laboratory results Normal [facility] TSH with Reflex Free T4on Interpretation and review of laboratory results Normal [facility] Thyrotropin Qn 2.12 m[IU]/L [facility] Valproic Acid Levelon 2018 Interpretation and review of laboratory results Abnormal [facility] Valproate mass conc ug/mL Low [facility] ealth eGFRon 03-16-2019 GFR/1.73 sq M predicted among non-blacks MDRD (S/P/Bld) [Vol rate/Area] 58 mL/min/1.73 m2 Normal [facility] Comment on above: Order Comment: Order Added by Discern Expert. Performed By: #### 1 [id number] #### BARRY RemHemo [address] [place] [address] GFR/1.73 sq M predicted among non-blacks MDRD (S/P/Bld) [Vol rate/Area] 48 mL/min/1.73 m2 Normal [facility] Comment on above: Order Comment: Order Added by Discern Expert. Performed By: #### 1 [id number] #### BARRY RemHemo [address] [place] [address] Auto Diffon 03-11-2019 Basophils (Bld) [#/Vol] 0.0 E3/mcL Normal 0.0-0.2 [facility] Comment on above: Order Comment: Order Added by Discern Expert. Performed By: #### 1 [id number] #### BARRY RemHemo [address] [place] [address] Basophils/100 WBC (Bld) 0.3 % Normal 0.0-2.0 [facility] Comment on above: Order Comment: Order Added by Discern Expert. Performed By: #### 1 [id number] #### BARRY RemHemo [address] [place] [address] Eos Absolute 0.1 E3/mcL Normal 0.0-0.7 [facility] Comment on above: Order Comment: Order Added by Discern Expert. Performed By: #### 1 [id number] #### BARRY RemHemo [address] [place] [address] Eosinophils/100 WBC (Bld) 3.7 % Normal 0.0-11.0 [facility] Comment on above: Order Comment: Order Added by Discern Expert. Performed By: #### 1 [id number] #### BARRY RemHemo [address] [place] [address] Lymphocytes (Bld) [#/Vol] 1.0 E3/mcL Low 1.2-3.4 [facility] Comment on above: Order Comment: Order Added by Discern Expert. Performed By: #### 1 [id number] #### BARRY RemHemo [address] [place] [address] Lymphocytes/100 WBC (Bld) 28.2 % Normal 20.0-55.0 [facility] Comment on above: Order Comment: Order Added by Discern Expert. Performed By: #### 1 [id number] #### BARRY RemHemo [address] [place] [address] [place] Absolute 0.3 E3/mcL Normal 0.0-0.7 [facility] Comment on above: Order Comment: Order Added by Discern Expert. Performed By: #### 1 [id number] #### BARRY RemHemo [address] [place] [address] Monocytes/100 WBC (Bld) 8.9 % Normal 0.0-10.0 [facility] Comment on above: Order Comment: Order Added by Discern Expert. Performed By: #### 1 [id number] #### BARRY RemHemo [address] [place] [address] Neutro Absolute 2.1 E3/mcL Normal 1.4-6.5 [facility] Comment on above: Order Comment: Order Added by Discern Expert. Performed By: #### 1 [id number] #### BARRY RemHemo [address] [place] [address] Neutro Auto 58.9 % Normal 37.0-75.0 [facility] Comment on above: Order Comment: Order Added by Discern Expert. Performed By: #### 1 [id number] #### BARRY WilcoxHemo [address] [place] [address] BMPon 03-11-2019 Anion gap [Moles/Vol] 11 mmol/L Normal 10-20 [facility] Comment on above: Performed By: #### 1 [id number] #### BARRY WilcoxHemo [address] [place] [address] Calcium [Mass/Vol] 8.4 mg/dL Low 8.6-10.3 [facility] Comment on above: Performed By: #### 1 [id number] #### BARRY WilcoxHemo [address] [place] [address] Chloride [Moles/Vol] 110 mmol/L High 98-107 [facility] Comment on above: Performed By: #### 1 [id number] #### BARRY WilcoxHemo [address] [place] [address] CO2 [Moles/Vol] 19.0 mmol/L Low 21.0-32.0 [facility] Comment on above: Performed By: #### 1 [id number] #### BARRY WilcoxHemo [address] [place] [address] Creatinine [Mass/Vol] 1.2 mg/dL High 0.5-1.1 [facility] Comment on above: Performed By: #### 1 [id number] #### BARRY WilcoxHemo [address] [place] [address] Glucose [Mass/Vol] 88 mg/dL Normal 70-99 [facility] Comment on above: Performed By: #### 1 [id number] #### BARRY RemHemo [address] [place] [address] Potassium [Moles/Vol] 3.8 mmol/L Normal 3.5-5.3 [facility] Comment on above: Performed By: #### 1 [id number] #### BARRY RemHemo [address] [place] [address] Sodium [Moles/Vol] 136 mmol/L Normal 136-145 [facility] Comment on above: Performed By: #### 1 [id number] #### BARRY WilcoxHemo [address] [place] [address] Urea nitrogen [Mass/Vol] 12 mg/dL Normal 6-23 [facility] Comment on above: Performed By: #### 1 [id number] #### BARRY WilcoxHemo [address] [place] [address] Urea nitrogen/Creatinine [Mass ratio] 10.0 ratio Normal 5.4-30.0 [facility] Comment on above: Performed By: #### 1 [id number] #### BARRY WilcoxHemo [address] [place] [address] CBC w/ Auto Diffon 9 Erythrocyte distribution width (RBC) [Ratio] 13.9 % Normal 11.5-14.5 [facility] Comment on above: Performed By: #### 1 [id number] #### BARRY WilcoxHemo [address] [place] [address] Hematocrit (Bld) [Volume fraction] 37.4 % Normal 36.0-48.0 [facility] Comment on above: Performed By: #### 1 [id number] #### BARRY WilcoxHemo [address] [place] [address] Hemoglobin (Bld) [Mass/Vol] 12.4 g/dL Normal 12.0-16.0 [facility] Comment on above: Performed By: #### 1 [id number] #### BARRY WilcoxHemo [address] [place] [address] MCH (RBC) [Entitic mass] 30.2 pg Normal 27.0-31.0 [facility] Comment on above: Performed By: #### 1 [id number] #### BARRY RemHemo [address] [place] [address] MCHC (RBC) [Mass/Vol] 33.1 g/dL Normal 33.0-37.0 [facility] Comment on above: Performed By: #### 1 [id number] #### BARRY RemHemo [address] [place] [address] MCV (RBC) [Entitic vol] 91.2 fL Normal 78.0-100.0 [facility] Comment on above: Performed By: #### 1 [id number] #### BARRY WilcoxHemo [address] [place] [address] Platelet mean volume (Bld) [Entitic vol] 8.1 fL Normal 7.4-11.0 [facility] Comment on above: Performed By: #### 1 [id number] #### BARRYShawn WilcoxHemo [address] [place] [address] Platelets (Bld) [#/Vol] 120 E3/mcL Low 130-400 [facility] Comment on above: Performed By: #### 1 [id number] #### BARRYShawn WilcoxHemo [address] [place] [address] RBC (Bld) [#/Vol] 4.11 E6/mcL Normal 3.90-5.40 [facility] Comment on above: Performed By: #### 1 [id number] #### BARRYShawn WilcoxHemo [address] [place] [address] WBC (Bld) [#/Vol] 3.6 E3/mcL Normal 3.6-11.0 [facility] Comment on above: Performed By: #### 1 [id number] #### BARRYShawn WilcoxHemo [address] [place] [address] Troponin-Ion 03-11-2019 Troponin I.cardiac [Mass/Vol] 0.01 ng/mL Normal 0.00-0.03 [facility] Comment on above: Performed By: #### 1 [id number] #### BARRYShawn WilcoxHemo [address] [place] [address] UA Completeon 03-11-2019 Color (U) Yellow Normal [facility] Comment on above: Performed By: #### 1 [id number] #### BARRYShawn WilcoxHemo [address] [place] [address] Glucose (U) [Mass/Vol] Negative Normal Negative [facility] Comment on above: Performed By: #### 1 [id number] #### BARRYShawn WilcoxHemo [address] [place] [address] Ketones Ql (U) Negative Normal Negative [facility] Comment on above: Performed By: #### 1 [id number] #### BARRY RemHemo [address] [place] [address] RBC (U) [#/Vol] 0-3 Normal 0-3 [facility] Comment on above: Performed By: #### 1 [id number] #### BARRY WilcoxHemo [address] [place] [address] UA Blood Negative Normal Negative [facility] Comment on above: Performed By: #### 1 [id number] #### BARRY RemHemo [address] [place] [address] UA Bacteria Trace Abnormal None [facility] Comment on above: Performed By: #### 1 [id number] #### BARRY RemHemo [address] [place] [address] UA Clarity Clear Normal Clear [facility] Comment on above: Performed By: #### 1 [id number] #### BARRY RemHemo [address] [place] [address] UA Leuk Est Negative Normal Negative [facility] Comment on above: Performed By: #### 1 [id number] #### BARRY RemHemo [address] [place] [address] UA Mucous Trace Abnormal Trace [facility] Comment on above: Performed By: #### 1 [id number] #### BARRY RemHemo [address] [place] [address] UA Nitrite Negative Normal Negative [facility] Comment on above: Performed By: #### 1 [id number] #### BARRY RemHemo [address] [place] [address] UA pH 5.0 Normal 4.6-8.0 [facility] Comment on above: Performed By: #### 1 [id number] #### BARRY RemHemo [address] [place] [address] UA Protein Negative Normal Negative [facility] Comment on above: Performed By: #### 1 [id number] #### BARRY RemHemo [address] [place] [address] UA Spec Grav 1.012 Normal 1.003-1.030 [facility] Comment on above: Performed By: #### 1 [id number] #### BARRY RemHemo [address] [place] [address] UA Squam Epithelial 10-20 Abnormal 0-5 [facility] Comment on above: Performed By: #### 1 [id number] #### BARRY WilcoxHemo [address] [place] [address] UA Urobilinogen Negative Normal [facility] Comment on above: Result Comment: Due to a manufacturing issue, low positive urobilinogen results may be fasely positive. Correlate with urine bilirubin and additional clinical/laboratory findings to assess the risk of hemolytic anemia or liver disease. If clinically indicated, repeat testing with an alternate method is available by contacting the laboratory within 24 hours. Performed By: #### 1 [id number] #### BARRY WilcoxHemo [address] [id number] UA WBC 0-5 Normal 0-5 [facility] Comment on above: Performed By: #### 1 [id number] #### BARRY Kenyono [facility] [id number] Urobilinogen Qn (U) Negative Normal Negative [facility] Comment on above: Performed By: #### 1 [id number] #### BARRY WilcoxHemo [facility] [id number] eGFRon 03-11-2019 GFR/1.73 sq M predicted among non-blacks MDRD (S/P/Bld) [Vol rate/Area] 58 mL/min/1.73 m2 [facility] Comment on above: Order Comment: Order Added by Discern Expert. Performed By: #### 1 [id number] #### BARRY WilcoxHemo [facility] [id number] GFR/1.73 sq M predicted among non-blacks MDRD (S/P/Bld) [Vol rate/Area] 48 mL/min/1.73 m2 [facility] Comment on above: Order Comment: Order Added by Discern Expert. Performed By: #### 1 [id number] #### BARRY WilcoxHemo [facility] [id number] Ammoniaon 03-08-2019 Ammonia mass conc (P) 30 ug/dL [facility] Interpretation and review of laboratory results Normal [facility] Comprehensive Metabolic Pane rock 03-08-2019 Albumin mass conc 3.6 g/dL 3.2 - 5.2 g/dL [facility] ALP enzyme act/vol 99 U/L 40 - 150 U/L [facility] ALT enzyme act/vol 31 U/L 14 - 65 U/L [facility]alth Anion gap molar conc 12 mmol/L 10 - 20 mmol/L [facility] AST enzyme act/vol 29 U/L 0 - 45 U/L [facility] alth Bilirubin mass conc 0.6 mg/dL 0 - 1.3 mg/dL [facility] Calcium mass conc 8.4 mg/dL 8.4 - 10.2 mg/dL [facility] Chloride molar conc 114 mmol/L High 98 - 108 mmol/L [facility] Creatinine mass conc 1.31 mg/dL High 0.4 - 1 .1 mg/dL [facility] GFR/1.73 sq M predicted among non-blacks MDRD vol rate/area (S/P/Bld) The eGFR should be used for monitoring renal function only and not for medication dosing. [facility] GFR/1.73 sq M.predicted CKD-EPI vol rate/area (S/P/Bld) 49 Low >=60 mL/min/1.73 m2 [facility] Glucose mass conc 94 mg/dL 65 - 99 mg/dL [facility] HCO3 molar conc 20 mmol/L Low 21 - 32 mmol/L [facility] Potassium molar conc 4.1 mmol/L 3.5 - 5 .1 mmol/L [facility] Protein mass conc 7.2 g/dL 6 - 8 g/dL [facility] Sodium molar conc 142 mmol/L 135 - 145 mmol/L [facility] Urea nitrogen mass conc 16 mg/dL 8 - 25 mg/dL [facility] Urea nitrogen/Creatinine mass ratio 12.2 mg/mg [facility] Otheron 03-08-2019 Interpretation and review of laboratory results Abnormal [facility] TSH with Reflex Free T4on Interpretation and review of laboratory results Normal [facility] Thyrotropin Qn 2.54 m[IU]/L [facility] Valproic Acid Levelon 2018 Valproate mass conc 4 ug/mL Low [facility] ealth BMPon 02-24-2019 Anion gap [Moles/Vol] 12 mmol/L Normal 10-20 [facility] Comment on above: Performed By: #### 1 [id number] #### BARRY RemHemo [address] [place] [address] Calcium [Mass/Vol] 8.9 mg/dL Normal 8.6-10.3 [facility] Comment on above: Performed By: #### 1 [id number] #### BARRY RemHemo [address] [place] [address] Chloride [Moles/Vol] 110 mmol/L High 98-107 [facility] Comment on above: Performed By: #### 1 [id number] #### BARRY RemHemo [address] [place] [address] CO2 [Moles/Vol] 21.0 mmol/L Normal 21.0-32.0 [facility] Comment on above: Performed By: #### 1 [id number] #### BARRY RemHemo [address] [place] [address] Creatinine [Mass/Vol] 1.3 mg/dL High 0.5-1.1 [facility] Comment on above: Performed By: #### 1 [id number] #### BARRY RemHemo [address] [place] [address] Glucose [Mass/Vol] 89 mg/dL Normal 70-99 [facility] Comment on above: Performed By: #### 1 [id number] #### BARRY RemHemo [address] [place] [address] Potassium [Moles/Vol] 4.5 mmol/L Normal 3.5-5.3 [facility] Comment on above: Performed By: #### 1 [id number] #### BARRY RemHemo [address] [place] [address] Sodium [Moles/Vol] 138 mmol/L Normal 136-145 [facility] Comment on above: Performed By: #### 1 [id number] #### BARRY RemHemo [address] [place] [address] Urea nitrogen [Mass/Vol] 15 mg/dL Normal 6-23 [facility] Comment on above: Performed By: #### 1 [id number] #### BARRY RemHemo [address] [place] [address] Urea nitrogen/Creatinine [Mass ratio] 11.5 ratio Normal 5.4-30.0 [facility] Comment on above: Performed By: #### 1 [id number] #### BARRY RemHemo [address] [place] [address] eGFRon 02-24-2019 GFR/1.73 sq M predicted among non-blacks MDRD (S/P/Bld) [Vol rate/Area] 43 mL/min/1.73 m2 Normal [facility] Comment on above: Order Comment: Order Added by Katya Expert. Performed By: #### 1 [id number] #### BARRYShawn WilcoxHemo [address] [place] [address] GFR/1.73 sq M predicted among non-blacks MDRD (S/P/Bld) [Vol rate/Area] 52 mL/min/1.73 m2 Normal [facility] Comment on above: Order Comment: Order Added by Katya Expert. Performed By: #### 1 [id number] #### [place] [address] .Manual Abson 02-23-2019 Basophil Abs Man 0.0 10x3/ Normal 0.0-0.2 [facility] Comment on above: Order Comment: Order Added by Katya Expert. Performed By: #### 1 [id number] #### BARRY WilcoxHemo [address] [place] [address] Eos Abs Man 0.0 10x3/ Normal 0.0-0.5 [facility] Comment on above: Order Comment: Order Added by Katya Expert. Performed By: #### 1 [id number] #### BARRY Luong [address] [place] [address] Lymph Abs Man 0.8 10x3/ Low 1.2-3.4 [facility] Comment on above: Order Comment: Order Added by Katya Expert. Performed By: #### 1 [id number] #### BARRYShawn WilcoxHemo [address] [place] [address] [place] Abs Man 0.3 10x3/ Normal 0.0-0.7 [facility] Comment on above: Order Comment: Order Added by Katya Expert. Performed By: #### 1 [id number] #### [facility] [address] [place] [address] Segs Abs Man 1.0 10x3/ Low 1.4-6.5 [facility] Comment on above: Order Comment: Order Added by Katya Expert. Performed By: #### 1 [id number] #### BARRY WilcoxHemo [address] [place] [address] Ammoniaon 02-23-2019 Ammonia (P) [Mass/Vol] 53 mcmol/L Normal 16-53 [facility] Comment on above: Performed By: #### 1 [id number] #### BARRY WilcoxHemo [facility]5 [place] [address] C Urineon 02-23-2019 C Urine Final Report: Rare Normal skin joe isolated Normal [facility] Comment on above: Performed By: #### 1 [id number] #### BARRY WilcoxHemo [facility]5 [place] [address] CBC w/ Auto Diffon 9 Erythrocyte distribution width (RBC) [Ratio] 14.7 % High 11.5-14.5 [facility] Comment on above: Performed By: #### 1 [id number] #### BARRY WilcoxHemo [address] [place] [address] Hematocrit (Bld) [Volume fraction] 35.2 % Low 36.0-48.0 [facility] Comment on above: Performed By: #### 1 [id number] #### BARRY WilcoxHemo [facility]5 [place] [address] Hemoglobin (Bld) [Mass/Vol] 11.7 g/dL Low 12.0-16.0 [facility] Comment on above: Performed By: #### 1 [id number] #### BARRY WilcoxHemo [facility]5 [place] [address] MCH (RBC) [Entitic mass] 31.2 pg High 27.0-31.0 [facility] Comment on above: Performed By: #### 1 [id number] #### BARRY WilcoxHemo [address] [place] [address] MCHC (RBC) [Mass/Vol] 33.2 g/dL Normal 33.0-37.0 [facility] Comment on above: Performed By: #### 1 [id number] #### BARRY WilcoxHemo [address] [place] [address] MCV (RBC) [Entitic vol] 93.8 fL Normal 78.0-100.0 [facility] Comment on above: Performed By: #### 1 [id number] #### BARRY RemHemo [address] [place] [address] Platelet mean volume (Bld) [Entitic vol] 7.6 fL Normal 7.4-11.0 [facility] Comment on above: Performed By: #### 1 [id number] #### BARRY WilcoxHemo [address] [place] [address] Platelets (Bld) [#/Vol] 56 E3/mcL Low 130-400 [facility] Comment on above: Performed By: #### 1 [id number] #### BARRY WilcoxHemo [address] [place] [address] RBC (Bld) [#/Vol] 3.75 E6/mcL Low 3.90-5.40 [facility] Comment on above: Performed By: #### 1 [id number] #### BARRY WilcoxHemo [facility]5 [place] [address] WBC (Bld) [#/Vol] 2.4 E3/mcL Low 3.6-11.0 [facility] Comment on above: Performed By: #### 1 [id number] #### BARRY WilcoxHemo [address] [place] [address] CMPon 02-23-2019 Albumin [Mass/Vol] 3.3 g/dL Low 3.4-5.0 [facility] Comment on above: Performed By: #### 1 [id number] #### BARRY WilcoxHemo [address] [place] [address] Albumin/Globulin [Mass ratio] 1.5 {ratio} Normal 1.1-1.9 [facility] Comment on above: Performed By: #### 1 [id number] #### BARRY RemHemo [address] [place] [address] Alk Phos 57 Int._Unit/L Normal 33-110 [facility] Comment on above: Performed By: #### 1 [id number] #### BARRY RemHemo [address] [place] [address] ALT [Catalytic activity/Vol] 12 Int._Unit/L Normal 7-45 [facility] Comment on above: Performed By: #### 1 [id number] #### BARRY Kenyono [address] [place] [address] Anion gap [Moles/Vol] 10 mmol/L Normal 10-20 [facility] Comment on above: Performed By: #### 1 [id number] #### BARRY Kenyono [address] [place] [address] AST [Catalytic activity/Vol] 20 Int._Unit/L Normal 9-39 [facility] Comment on above: Performed By: #### 1 [id number] #### BARRY Kenyono [address] [place] [address] Bili Total 0.33 mg/dL Normal 0.00-1.20 [facility] Comment on above: Performed By: #### 1 [id number] #### BARRY Kenyono [facility]5 [place] [address] Calcium [Mass/Vol] 8.3 mg/dL Low 8.6-10.3 [facility] Comment on above: Performed By: #### 1 [id number] #### BARRY WilcoxHemo [address] [place] [address] Chloride [Moles/Vol] 114 mmol/L High 98-107 [facility] Comment on above: Performed By: #### 1 [id number] #### BARRY WilcoxHemo [address] [place] [address] CO2 [Moles/Vol] 22.0 mmol/L Normal 21.0-32.0 [facility] Comment on above: Performed By: #### 1 [id number] #### BARRY Kenyono [address] [place] [address] Creatinine [Mass/Vol] 1.2 mg/dL High 0.5-1.1 [facility] Comment on above: Performed By: #### 1 [id number] #### BARRY WilcoxHemo [address] [place] [address] Globulin (S) [Mass/Vol] 2.0 g/dL Normal 2.0-4.0 [facility] Comment on above: Performed By: #### 1 [id number] #### BARRYShawn iWlcoxHemo [address] [place] [address] Glucose [Mass/Vol] 86 mg/dL Normal 70-99 [facility] Comment on above: Performed By: #### 1 [id number] #### BARRY RemHemo [address] [place] [address] Potassium [Moles/Vol] 4.4 mmol/L Normal 3.5-5.3 [facility] Comment on above: Performed By: #### 1 [id number] #### BARRY RemHemo [address] [place] [address] Protein [Mass/Vol] 5.5 g/dL Low 6.4-8.2 [facility] Comment on above: Performed By: #### 1 [id number] #### BARRY RemHemo [facility]5 [place] [address] Sodium [Moles/Vol] 141 mmol/L Normal 136-145 [facility] Comment on above: Performed By: #### 1 [id number] #### BARRY RemHemo [facility]5 [place] [address] Urea nitrogen [Mass/Vol] 11 mg/dL Normal 6-23 [facility] Comment on above: Performed By: #### 1 [id number] #### BARRY RemHemo [address] [place] [address] Urea nitrogen/Creatinine [Mass ratio] 9.2 ratio Normal 5.4-30.0 [facility] Comment on above: Performed By: #### 1 [id number] #### BARRY WilcoxHemo [facility]5 [place] [address] Lamotrigine Lvlon 02-23-2019 Lamotrigine Lvl None Detected Normal 2.0-20.0 [facility] Comment on above: Result Comment: This test was developed and its performance characteristics determined by [facility]. It has not been cleared or approved by the Food and Drug Administration. Detection Limit = 1.0 Performed At: [address] [id number] Aramis Sharpe MD Ph:[phone] Performed By: #### 1 [id number] #### BARRY WilcoxHemo [facility]5 [place] [address] Manual Diffon 02-23-2019 Band form neutrophils/100 WBC (Bld) 9 High 0-1 [facility] Comment on above: Order Comment: Order Added by Discern Expert. Performed By: #### 1 [id number] #### BARRY RemHemo [address] [place] [address] Basophil Man 0 % Normal 0-1 [facility] Comment on above: Order Comment: Order Added by Discern Expert. Performed By: #### 1 [id number] #### BARRY RemHemo [address] [place] [address] Eosinophils/100 WBC (Bld) 2 % Normal 0-5 [facility] Comment on above: Order Comment: Order Added by Discern Expert. Performed By: #### 1 [id number] #### BARRY RemHemo [address] [place] [address] Lymphocytes/100 WBC (Bld) 33 % Normal 14-48 [facility] Comment on above: Order Comment: Order Added by Katya Expert. Performed By: #### 1 [id number] #### BARRY RemHemo [address] [place] [address] Sharon Man 3 % High 0-0 [facility] Comment on above: Order Comment: Order Added by Discern Expert. Performed By: #### 1 [id number] #### BARRY RemHemo [address] [place] [address] Monocyte Man 11 % Normal 1-11 [facility] Comment on above: Order Comment: Order Added by Katya Expert. Performed By: #### 1 [id number] #### BARRY RemHemo [address] [place] [address] Myelo Man 2 % High 0-0 [facility] Comment on above: Order Comment: Order Added by Katya Expert. Performed By: #### 1 [id number] #### BARRY RemHemo [address] [place] [address] Ovalocytes 1+ Normal [facility] Comment on above: Order Comment: Order Added by Katya Expert. Performed By: #### 1 [id number] #### BARRY RemHemo [address] [place] [address] Polychromasia 1+ Normal [facility] Comment on above: Order Comment: Order Added by Katya Expert. Performed By: #### 1 [id number] #### BARRY RemHemo [address] [place] [address] RBC morphology finding Nom (Bld) SEE MORPHOLOGY Normal [facility] Comment on above: Order Comment: Order Added by Discern Expert. Performed By: #### 1 [id number] #### BARRY WilcoxHemo [address] [place] [address] Segs Man 40 % Normal 37-75 [facility] Comment on above: Order Comment: Order Added by Discern Expert. Performed By: #### 1 [id number] #### BARRY WilcoxHemo [address] [place] [address] eGFRon 02-23-2019 GFR/1.73 sq M predicted among non-blacks MDRD (S/P/Bld) [Vol rate/Area] 60 mL/min/1.73 m2 Normal [facility] Comment on above: Order Comment: Order Added by Discern Expert. Performed By: #### 1 [id number] #### [place] [address] GFR/1.73 sq M predicted among non-blacks MDRD (S/P/Bld) [Vol rate/Area] 50 mL/min/1.73 m2 Normal [facility] Comment on above: Order Comment: Order Added by Discern Expert. Performed By: #### 1 [id number] #### [place] [address] zzplt morphon 02-23-2019 Platelet morphology finding Nom (Bld) NORMAL Normal [facility] Comment on above: Performed By: #### 1 [id number] #### [place] [address] Platelets (Bld) [#/Vol] DECREASED Normal [facility] Comment on above: Performed By: #### 1 [id number] #### BARRY WilcoxHemo [address] [place] [address] .Manual Abson 02-22-2019 Basophil Abs Man 0.0 10x3/ Normal 0.0-0.2 [facility] Comment on above: Order Comment: Order Added by Discern Expert. Performed By: #### 1 [id number] #### BARRY WilcoxHemo [address] [place] [address] Eos Abs Man 0.0 10x3/ Normal 0.0-0.5 [facility] Comment on above: Order Comment: Order Added by Discern Expert. Performed By: #### 1 [id number] #### BARRY WilcoxHemo [address] [place] [address] Lymph Abs Man 1.4 10x3/ Normal 1.2-3.4 [facility] Comment on above: Order Comment: Order Added by Discern Expert. Performed By: #### 1 [id number] #### BARRY WilcoxHemo [address] [place] [address] [place] Abs Man 0.3 10x3/ Normal 0.0-0.7 [facility] Comment on above: Order Comment: Order Added by Discern Expert. Performed By: #### 1 [id number] #### BARRY Kenyono [address] [place] [address] Segs Abs Man 1.1 10x3/ Low 1.4-6.5 [facility] Comment on above: Order Comment: Order Added by Discern Expert. Performed By: #### 1 [id number] #### BARRY WilcoxHemo [address] [place] [address] BMPon 02-22-2019 Anion gap [Moles/Vol] 10 mmol/L Normal 10-20 [facility] Comment on above: Performed By: #### 2 [id number] #### BARRY WilcoxHemo [address] [place] [address] Calcium [Mass/Vol] 7.7 mg/dL Low 8.6-10.3 [facility] Comment on above: Performed By: #### 2 [id number] #### BARRY WilcoxHemo [address] [place] [address] Chloride [Moles/Vol] 115 mmol/L High 98-107 [facility] Comment on above: Performed By: #### 2 [id number] #### BARRY RemHemo [address] [place] [address] CO2 [Moles/Vol] 20.0 mmol/L Low 21.0-32.0 [facility] Comment on above: Performed By: #### 2 [id number] #### BRARY RemHemo [address] [place] [address] Creatinine [Mass/Vol] 1.2 mg/dL High 0.5-1.1 [facility] Comment on above: Performed By: #### 2 [id number] #### BARRY WilcoxHemo [address] [place] [address] Glucose [Mass/Vol] 89 mg/dL Normal 70-99 [facility] Comment on above: Performed By: #### 2 [id number] #### BARRY WilcoxHemo [address] [place] [address] Potassium [Moles/Vol] 4.3 mmol/L Normal 3.5-5.3 [facility] Comment on above: Performed By: #### 2 [id number] #### BARRY WilcoxHemo [address] [place] [address] Sodium [Moles/Vol] 141 mmol/L Normal 136-145 [facility] Comment on above: Performed By: #### 2 [id number] #### BARRY WilcoxHemo [address] [place] [address] Urea nitrogen [Mass/Vol] 14 mg/dL Normal 6-23 [facility] Comment on above: Performed By: #### 2 [id number] #### BARRY WilcoxHemo [address] [place] [address] Urea nitrogen/Creatinine [Mass ratio] 11.7 ratio Normal 5.4-30.0 [facility] Comment on above: Performed By: #### 2 [id number] #### BARRY WilcoxHemo [facility] [place] [address] CBC w/ Auto Diffon 9 Erythrocyte distribution width (RBC) [Ratio] 15.0 % High 11.5-14.5 [facility] Comment on above: Performed By: #### 1 [id number] #### BARRY WilcoxHemo [address] [place] [address] Hematocrit (Bld) [Volume fraction] 35.9 % Low 36.0-48.0 [facility] Comment on above: Performed By: #### 1 [id number] #### BARRY WilcoxHemo [address] [place] [address] Hemoglobin (Bld) [Mass/Vol] 11.8 g/dL Low 12.0-16.0 [facility] Comment on above: Performed By: #### 1 [id number] #### BARRY WilcoxHemo [address] [place] [address] MCH (RBC) [Entitic mass] 31.1 pg High 27.0-31.0 [facility] Comment on above: Performed By: #### 1 [id number] #### BARRY WilcoxHemo [address] [place] [address] MCHC (RBC) [Mass/Vol] 32.9 g/dL Low 33.0-37.0 [facility] Comment on above: Performed By: #### 1 [id number] #### BARRYShawn WilcoxHemo [facility]5 [place] [address] MCV (RBC) [Entitic vol] 94.6 fL Normal 78.0-100.0 [facility] Comment on above: Performed By: #### 1 [id number] #### BARRY WilcoxHemo [facility]5 [place] [address] Platelet mean volume (Bld) [Entitic vol] 7.9 fL Normal 7.4-11.0 [facility] Comment on above: Performed By: #### 1 [id number] #### BARRYShawn WilcoxHemo [address] [place] [address] Platelets (Bld) [#/Vol] 62 E3/mcL Low 130-400 [facility] Comment on above: Performed By: #### 1 [id number] #### BARRY WilcoxHemo [facility]5 [place] [address] RBC (Bld) [#/Vol] 3.79 E6/mcL Low 3.90-5.40 [facility] Comment on above: Performed By: #### 1 [id number] #### BARRY RemHemo [address] [place] [address] WBC (Bld) [#/Vol] 2.8 E3/mcL Low 3.6-11.0 [facility] Comment on above: Performed By: #### 1 [id number] #### BARRY RemHemo [address] [place] [address] Gases - Bloodon 02-22-2019 Allens Test. Normal [facility] Comment on above: Performed By: #### 1 [id number] #### BARRY WilcoxHemo [address] [place] [address] Base Excess. -9 mmol/L Low -2-3 [facility] Comment on above: Performed By: #### 1 [id number] #### BARRY WilcoxHemo [facility]5 [place] [address] CO2 Tot. 17 mmol/L Low 22-28 [facility] Comment on above: Performed By: #### 1 [id number] #### BARRY WilcoxHemo [address] [place] [address] CPAP/PEEP(cmH2O). NOT CALCULATED Normal [facility] Comment on above: Performed By: #### 1 [id number] #### BARRY WilcoxHemo [address] [place] [address] FiO2. 21 % Normal [facility] Comment on above: Performed By: #### 1 [id number] #### BARRY WilcoxHemo [address] [place] [address] HCO#. 16.3 mmol/L Low 22.0-26.0 [facility] Comment on above: Performed By: #### 1 [id number] #### BARRY WilcoxHemo [address] [place] [address] O2 Devices. Room Air [facility] Comment on above: Performed By: #### 1 [id number] #### BARRY WilcoxHemo [address] [place] [address] OPID. [id number] [facility] Comment on above: Performed By: #### 1 [id number] #### BARRY WilcoxHemo [address] [place] [address] Oxygen (Bld) [Partial pressure] 101 mmHg High 80-100 [facility] Comment on above: Performed By: #### 1 [id number] #### BARRY WilcoxHemo [address] [place] [address] Oxygen saturation in Blood 98 % Normal 95-100 [facility] Comment on above: Performed By: #### 1 [id number] #### BARRY WilcoxHemo [facility] [place] [address] P CO2. 28.4 mmHg Low 35.0-45.0 [facility] Comment on above: Performed By: #### 1 [id number] #### BARRY WilcoxHemo [facility]5 [place] [address] Patient Temp. NOT CALCULATED Normal [facility] Comment on above: Performed By: #### 1 [id number] #### BARRY WilcoxHemo [facility] [place] [address] pH (Bld) 7.367 Normal 7.350-7.450 [facility] Comment on above: Performed By: #### 1 [id number] #### BARRY WilcoxHemo [address] [place] [address] PSV/IP(cmH2O). NOT CALCULATED [facility] Comment on above: Performed By: #### 1 [id number] #### BARRY WilcoxHemo [address] [place] [address] Sample Site. R brach [facility] Comment on above: Performed By: #### 1 [id number] #### BARRY WilcoxHemo [address] [place] [address] Sample Type. Arterial [facility] Comment on above: Performed By: #### 1 [id number] #### BARRY Kenyono [address] [place] [address] Set RR(b/min). NOT CALCULATED [facility] Comment on above: Performed By: #### 1 [id number] #### BARRY WilcoxHemo [address] [place] [address] Tidal Volume(mL). NOT CALCULATED [facility] Comment on above: Performed By: #### 1 [id number] #### BARRY WilcoxHemo [address] [place] [address] Vent Mode. NOT CALCULATED [facility] Comment on above: Performed By: #### 1 [id number] #### BARRYShawn WilcoxHemo [address] [place] [address] MulH2ogp 02-22-2019 HbA1c (Bld) [Mass fraction] 5.1 % Normal 4.0-6.3 [facility] Comment on above: Performed By: #### 1 [id number] #### [facility] [address] [place] [address] Magnesiumon 02-22-2019 Magnesium [Mass/Vol] 1.8 mg/dL Normal 1.6-2.4 [facility] Comment on above: Performed By: #### 1 [id number] #### BARRYShawn WilcoxHemo [address] [place] [address] Manual Diffon 02-22-2019 Anisocytosis Ql (Bld) 1+ Normal [facility] Comment on above: Order Comment: Order Added by Discern Expert. Performed By: #### 1 [id number] #### BARRY WilcoxHemo [address] [place] [address] Basophil Man 0 % Normal 0-1 [facility] Comment on above: Order Comment: Order Added by Discern Expert. Performed By: #### 1 [id number] #### BARRYShawn WilcoxHemo [address] [place] [address] Eosinophils/100 WBC (Bld) 0 % Normal 0-5 [facility] Comment on above: Order Comment: Order Added by Discern Expert. Performed By: #### 1 [id number] #### BARRY WilcoxHemo [address] [place] [address] Lymphocytes/100 WBC (Bld) 51 % High 14-48 [facility] Comment on above: Order Comment: Order Added by Discern Expert. Performed By: #### 1 [id number] #### BARRY WilcoxHemo [address] [place] [address] Monocyte Man 9 % Normal 1-11 [facility] Comment on above: Order Comment: Order Added by Discern Expert. Performed By: #### 1 [id number] #### BARRY RemHemo [address] [place] [address] RBC morphology finding Nom (Bld) SEE MORPHOLOGY Normal [facility] Comment on above: Order Comment: Order Added by Discern Expert. Performed By: #### 1 [id number] #### BARRY RemHemo [address] [place] [address] Segs Man 40 % Normal 37-75 [facility] Comment on above: Order Comment: Order Added by Discern Expert. Performed By: #### 1 [id number] #### BARRY RemHemo [address] [place] [address] Phosphoruson 02-22-2019 Phosphate [Mass/Vol] 2.7 mg/dL Normal 2.5-4.9 [facility] Comment on above: Performed By: #### 1 [id number] #### BARRY RemHemo [address] [place] [address] Valproic Acidon 02-22-2019 Valpro Acid Lvl 75 microgram/mL Normal 50-100 [facility] Comment on above: Performed By: #### 1 [id number] #### BARRY RemHemo [facility] [place] [address] eGFRon 02-22-2019 GFR/1.73 sq M predicted among non-blacks MDRD (S/P/Bld) [Vol rate/Area] 56 mL/min/1.73 m2 Normal [facility] Comment on above: Order Comment: Order added by Discern Expert. Performed By: #### 2 [id number] #### BARRY RemHemo [facility] [place] [address] GFR/1.73 sq M predicted among non-blacks MDRD (S/P/Bld) [Vol rate/Area] 46 mL/min/1.73 m2 Normal [facility] Comment on above: Order Comment: Order added by Discern Expert. Performed By: #### 2 [id number] #### BARRY RemHemo [facility] [place] [address] zzplt morphon 02-22-2019 Platelet morphology finding Nom (Bld) ENLARGED Normal [facility] Comment on above: Performed By: #### 1 [id number] #### BARRY RemHemo [facility] [place] [address] Platelets (Bld) [#/Vol] DECREASED Normal [facility] Comment on above: Performed By: #### 1 [id number] #### BARRY RemHemo [facility] [place] [id number] Acetamnphn Lvlon 02-21-2019 Acetaminoph Lvl <10 Normal 10-30 [facility] Comment on above: Performed By: #### 2 [id number] #### BARRY Microbiology Subsection [address] [place] [address] Ammoniaon 05-07-2019 Ammonia (P) [Mass/Vol] 55 mcmol/L High 16-53 [facility] Comment on above: Performed By: #### 2 [id number] #### BARRY Microbiology Subsection [address] [place] [address] Auto Diffon 02-21-2019 Basophils (Bld) [#/Vol] 0.0 E3/mcL Normal 0.0-0.2 [facility] Comment on above: Order Comment: Order Added by Discern Expert. Performed By: #### 2 [id number] #### BARRY Microbiology Subsection [address] [place] [address] Basophils/100 WBC (Bld) 0.4 % Normal 0.0-2.0 [facility] Comment on above: Order Comment: Order Added by Discern Expert. Performed By: #### 2 [id number] #### BARRY Microbiology Subsection [address] [place] [address] Eos Absolute 0.1 E3/mcL Normal 0.0-0.7 [facility] Comment on above: Order Comment: Order Added by Discern Expert. Performed By: #### 2 [id number] #### BARRY Microbiology Subsection [address] [place] [address] Eosinophils/100 WBC (Bld) 1.4 % Normal 0.0-11.0 [facility] Comment on above: Order Comment: Order Added by Discern Expert. Performed By: #### 2 [id number] #### BARRY Microbiology Subsection [address] [place] [address] Lymphocytes (Bld) [#/Vol] 1.0 E3/mcL Low 1.2-3.4 [facility] Comment on above: Order Comment: Order Added by Discern Expert. Performed By: #### 2 [id number] #### BARRY Microbiology Subsection [address] [place] [address] Lymphocytes/100 WBC (Bld) 24.1 % Normal 20.0-55.0 [facility] Comment on above: Order Comment: Order Added by Katya Expert. Performed By: #### 2 [id number] #### BARRY Microbiology Subsection [address] [place] [address] [place] Absolute 0.5 E3/mcL Normal 0.0-0.7 [facility] Comment on above: Order Comment: Order Added by Discern Expert. Performed By: #### 2 [id number] #### BARRY Microbiology Subsection [facility] [place] [address] Monocytes/100 WBC (Bld) 10.8 % High 0.0-10.0 [facility] Comment on above: Order Comment: Order Added by Discern Expert. Performed By: #### 2 [id number] #### BARRY Microbiology Subsection [address] [place] [address] Neutro Absolute 2.7 E3/mcL Normal 1.4-6.5 [facility] Comment on above: Order Comment: Order Added by Discern Expert. Performed By: #### 2 [id number] #### BARRY Microbiology Subsection [address] [place] [address] Neutro Auto 63.3 % Normal 37.0-75.0 [facility] Comment on above: Order Comment: Order Added by Discern Expert. Performed By: #### 2 [id number] #### BARRY Microbiology Subsection [address] [place] [address] BMPon 02-21-2019 Anion gap [Moles/Vol] 18 mmol/L Normal 10-20 [facility] Comment on above: Performed By: #### 8 [id number] #### BARRY Urinalysis Automated Subsection [address] [place] [address] Calcium [Mass/Vol] 8.6 mg/dL Normal 8.6-10.3 [facility] Comment on above: Performed By: #### 8 [id number] #### BARRY Urinalysis Automated Subsection [address] [place] [address] Chloride [Moles/Vol] 106 mmol/L Normal 98-107 [facility] Comment on above: Performed By: #### 8 [id number] #### BARRY Urinalysis Automated Subsection [address] [place] [address] CO2 [Moles/Vol] 16.0 mmol/L Low 21.0-32.0 [facility] Comment on above: Performed By: #### 8 [id number] #### BARRY Urinalysis Automated Subsection [address] [place] [address] Creatinine [Mass/Vol] 1.4 mg/dL High 0.5-1.1 [facility] Comment on above: Performed By: #### 8 [id number] #### BARRY Urinalysis Automated Subsection [address] [place] [address] Glucose [Mass/Vol] 165 mg/dL High 70-99 [facility] Comment on above: Performed By: #### 8 [id number] #### BARRY Urinalysis Automated Subsection [facility] [place] [address] Potassium [Moles/Vol] 2.9 mmol/L Low 3.5-5.3 [facility] Comment on above: Performed By: #### 8 [id number] #### BARRY Urinalysis Automated Subsection [facility] [place] [address] Sodium [Moles/Vol] 137 mmol/L Normal 136-145 [facility] Comment on above: Performed By: #### 8 [id number] #### BARRY Urinalysis Automated Subsection [address] [place] [address] Urea nitrogen [Mass/Vol] 14 mg/dL Normal 6-23 [facility] Comment on above: Performed By: #### 8 [id number] #### BARRY Urinalysis Automated Subsection [facility]5 [place] [address] Urea nitrogen/Creatinine [Mass ratio] 10.0 ratio Normal 5.4-30.0 [facility] Comment on above: Performed By: #### 8 [id number] #### BARRY Urinalysis Automated Subsection [facility]5 [place] [address] CBC w/ Auto Diffon 9 Erythrocyte distribution width (RBC) [Ratio] 14.7 % High 11.5-14.5 [facility] Comment on above: Performed By: #### 8 [id number] #### BARRY Urinalysis Automated Subsection [address] [place] [address] Hematocrit (Bld) [Volume fraction] 41.4 % Normal 36.0-48.0 [facility] Comment on above: Performed By: #### 8 [id number] #### BARRY Urinalysis Automated Subsection [facility] [place] [address] Hemoglobin (Bld) [Mass/Vol] 13.3 g/dL Normal 12.0-16.0 [facility] Comment on above: Performed By: #### 8 [id number] #### BARRY Urinalysis Automated Subsection [facility] [place] [address] MCH (RBC) [Entitic mass] 30.7 pg Normal 27.0-31.0 [facility] Comment on above: Performed By: #### 8 [id number] #### BARRY Urinalysis Automated Subsection [facility] [place] [address] MCHC (RBC) [Mass/Vol] 32.2 g/dL Low 33.0-37.0 [facility] Comment on above: Performed By: #### 8 [id number] #### BARRY Urinalysis Automated Subsection [address] [place] [address] MCV (RBC) [Entitic vol] 95.5 fL Normal 78.0-100.0 [facility] Comment on above: Performed By: #### 8 [id number] #### BARRY Urinalysis Automated Subsection [address] [place] [address] Platelet mean volume (Bld) [Entitic vol] 7.9 fL Normal 7.4-11.0 [facility] Comment on above: Performed By: #### 8 [id number] #### BARRY Urinalysis Automated Subsection [address] [place] [address] Platelets (Bld) [#/Vol] 66 E3/mcL Low 130-400 [facility] Comment on above: Performed By: #### 8 [id number] #### BARRY Urinalysis Automated Subsection [address] [place] [address] RBC (Bld) [#/Vol] 4.34 E6/mcL Normal 3.90-5.40 [facility] Comment on above: Performed By: #### 8 [id number] #### BARRY Urinalysis Automated Subsection [address] [place], [place] [address] WBC (Bld) [#/Vol] 4.2 E3/mcL Normal 3.6-11.0 [facility] Comment on above: Performed By: #### 8 [id number] #### BARRY Urinalysis Automated Subsection [address] [place] [address] CKon 02-21-2019 Total CK 46 Int._Unit/L Normal <=215 [facility] Comment on above: Performed By: #### 8 [id number] #### BARRY Urinalysis Automated Subsection [facility] [place] [address] Ethanolon 02-21-2019 Ethanol [Mass/Vol] mg/dL Normal <=10 [facility] Comment on above: Performed By: #### 2 [id number] #### BARRY Microbiology Subsection [address] [place] [address] Gases - Bloodon 02-21-2019 Allens Test. Positive [facility] Comment on above: Performed By: #### 2 [id number] #### BARRY RemHemo [address] [place] [address] Base Excess. -9 mmol/L Low -2-3 [facility] Comment on above: Performed By: #### 2 [id number] #### BARRY RemHemo [address] [place] [address] CO2 Tot. 18 mmol/L Low 22-28 [facility] Comment on above: Performed By: #### 2 585996 #### BARRY RemHemo [address] [place] [address] CPAP/PEEP(cmH2O). 0 [facility] Comment on above: Performed By: #### 2 370993 #### BARRY RemHemo [address] [place] [address] FiO2. 21 % [facility] Comment on above: Performed By: #### 2 680308 #### BARRY RemHemo [address] [place] [address] HCO#. 17.2 mmol/L Low 22.0-26.0 [facility] Comment on above: Performed By: #### 2 235159 #### BARRY RemHemo [facility] [place] [address] O2 Devices. Room Air [facility] Comment on above: Performed By: #### 2 [id number] #### BARRY RemHemo [address] [place] [address] OPID. [id number] [facility] Comment on above: Performed By: #### 2 [id number] #### BARRY WilcoxHemo [address] [place] [address] Oxygen (Bld) [Partial pressure] 85 mmHg Normal 80-100 [facility] Comment on above: Performed By: #### 2 312763 #### BARRY WilcoxHemo [address] [place] [address] Oxygen saturation in Blood 96 % Normal 95-100 [facility] Comment on above: Performed By: #### 2 197640 #### BARRY WilcoxHemo [address] [place] [address] P CO2. 32.7 mmHg Low 35.0-45.0 [facility] Comment on above: Performed By: #### 2 [id number] #### BARRY WilcoxHemo [address] [place] [address] Patient Temp. NOT CALCULATED [facility] Comment on above: Performed By: #### 2 410346 #### BARRY WilcoxHemo [address] [place] [address] pH (Bld) 7.329 Low 7.350-7.450 [facility] Comment on above: Performed By: #### 2 952141 #### BARRY WilcoxHemo [address] [place] [address] PSV/IP(cmH2O). 0 [facility] Comment on above: Performed By: #### 2 174479 #### BARRY Kenyono [facility] [place] [address] Sample Site. R rad [facility] Comment on above: Performed By: #### 2 592909 #### BARRY WilcoxHemo [facility] [place] [address] Sample Type. Arterial [facility] Comment on above: Performed By: #### 2 [id number] #### BARRY Kenyono [facility] [place] [address] Set RR(b/min). 0 [facility] Comment on above: Performed By: #### 2 541102 #### BARRY JeriHemo [facility] [place] [address] Tidal Volume(mL). 0 [facility] Comment on above: Performed By: #### 2 [id number] #### BARRY WilcoxHemo [address] [place] [address] Vent Mode. NOT CALCULATED Normal [facility] Comment on above: Performed By: #### 2 494426 #### BARRY WilcoxHemo [address] [place] [address] Allens Test. Negative [facility] Comment on above: Performed By: #### 2 [id number] #### BARRY WilcoxHemo [facility] [place] [address] Base Excess. -8 mmol/L Low -2-3 [facility] Comment on above: Performed By: #### 2 473634 #### BARRY WilcoxHemo [facility] [place] [address] CO2 Tot. 19 mmol/L Low 22-28 [facility] Comment on above: Performed By: #### 2 305112 #### BARRY WilcoxHemo [facility] [place] [address] CPAP/PEEP(cmH2O). NOT CALCULATED Normal [facility] Comment on above: Performed By: #### 2 [id number] #### BARRY WilcoxHemo [address] [place] [address] FiO2. 21 % Normal [facility] Comment on above: Performed By: #### 2 169647 #### BARRY Kenyono [facility] [place] [address] HCO#. 17.9 mmol/L Low 22.0-26.0 [facility] Comment on above: Performed By: #### 2 843100 #### BARRY WilcoxHemo [facility] [place] [address] O2 Devices. Room Air Normal [facility] Comment on above: Performed By: #### 2 [id number] #### BARRY WilcoxHemo [address] [place] [address] OPID. [id number] [facility] Comment on above: Performed By: #### 2 784253 #### BARRY WilcoxHemo [address] [place] [address] Oxygen (Bld) [Partial pressure] 86 mmHg Normal 80-100 [facility] Comment on above: Performed By: #### 2 917947 #### BARRY WilcoxHemo [address] [place] [address] Oxygen saturation in Blood 96 % Normal 95-100 [facility] Comment on above: Performed By: #### 2 092337 #### BARRY Kenyono [facility] [place] [address] P CO2. 34.1 mmHg Low 35.0-45.0 [facility] Comment on above: Performed By: #### 2 064500 #### BARRY WilcoxHemo [facility] [place] [address] Patient Temp. NOT CALCULATED [facility] Comment on above: Performed By: #### 2 320830 #### BARRY Kenyono [facility] [place] [address] pH (Bld) 7.329 Low 7.350-7.450 [facility] Comment on above: Performed By: #### 2 299754 #### BARRY Kenyono [facility] [place] [address] PSV/IP(cmH2O). NOT CALCULATED [facility] Comment on above: Performed By: #### 2 124322 #### BARRY WilcoxHemo [facility] [place] [address] Sample Site. R rad [facility] Comment on above: Performed By: #### 2 [id number] #### BARRY Kenyono [facility] [place] [address] Sample Type. Arterial [facility] Comment on above: Performed By: #### 2 316101 #### BARRY Kenyono [facility] [place] [address] Set RR(b/min). NOT CALCULATED [facility] Comment on above: Performed By: #### 2 [id number] #### BARRY Kenyono [facility] [place] [address] Tidal Volume(mL). NOT CALCULATED [facility] Comment on above: Performed By: #### 2 [id number] #### BARRY WilcoxHemo [facility]5 [place] [address] Vent Mode. NOT CALCULATED [facility] Comment on above: Performed By: #### 2 255947 #### BARRY RemHemo [address] [place] [address] Hep Func Panelon 02-21-2019 Albumin [Mass/Vol] 4.0 g/dL Normal 3.4-5.0 [facility] Comment on above: Performed By: #### 8 [id number] #### BARRY Urinalysis Automated Subsection [facility] [place] [address] Albumin/Globulin [Mass ratio] 1.5 {ratio} Normal 1.1-1.9 [facility] Comment on above: Performed By: #### 8 [id number] #### BARRY Urinalysis Automated Subsection [facility] [place] [address] Alk Phos 69 Int._Unit/L Normal 33-110 [facility] Comment on above: Performed By: #### 8 [id number] #### BARRY Urinalysis Automated Subsection [facility]5 [place] [address] ALT [Catalytic activity/Vol] 18 Int._Unit/L Normal 7-45 [facility] Comment on above: Performed By: #### 8 [id number] #### BARRY Urinalysis Automated Subsection [facility] [place] [address] AST [Catalytic activity/Vol] 33 Int._Unit/L Normal 9-39 [facility] Comment on above: Performed By: #### 8 [id number] #### BARRY Urinalysis Automated Subsection [facility] [place] [address] Bili Direct 0.10 mg/dL Normal 0.00-0.30 [facility] Comment on above: Performed By: #### 8 [id number] #### BARRY Urinalysis Automated Subsection [facility] [place] [address] Bili Indirect 0.33 mg/dL Normal [facility] Comment on above: Result Comment: No e stablished ranges available for the indirect bilirubin Performed By: #### 8 [id number] #### BARRY Urinalysis Automated Subsection [facility] [place] [address] Bili Total 0.43 mg/dL Normal 0.00-1.20 [facility] Comment on above: Performed By: #### 8 [id number] #### BARRY Urinalysis Automated Subsection [address] [place] [address] Globulin (S) [Mass/Vol] 3.0 g/dL Normal 2.0-4.0 [facility] Comment on above: Performed By: #### 8 [id number] #### BARRY Urinalysis Automated Subsection [address] [place] [address] Protein [Mass/Vol] 6.6 g/dL Normal 6.4-8.2 [facility] Comment on above: Performed By: #### 8 [id number] #### BARRY Urinalysis Automated Subsection [facility] [place] [address] Lactic Acidon 02-21-2019 Lactate [Moles/Vol] 1.4 mmol/L Normal 0.4-2.0 [facility] Comment on above: Order Comment: Sepsi s Reflex order due to high lactic acid level Performed By: #### 2 193890 #### BARRY RemHemo [facility] [place] [address] Lactate [Moles/Vol] 2.2 mmol/L High 0.4-2.0 [facility] Comment on above: Performed By: #### 2 666482 #### BARRY RemHemo [address] [place], [place] [address] Lipase Levelon 02-21-2019 Lipase Lvl 37 Int._Unit/L Normal 9-82 [facility] Comment on above: Performed By: #### 8 [id number] #### BARRY Urinalysis Automated Subsection [facility] [place] [address] Magnesiumon 02-21-2019 Magnesium [Mass/Vol] 1.7 Int._Unit/L Normal 1.6-2.4 [facility] Comment on above: Performed By: #### 2 272900 #### BARRY Microbiology Subsection [address] [place], [place] [address] Morphon 02-21-2019 Polychromasia 1+ Normal [facility] Comment on above: Order Comment: Strai ght Cath as needed Performed By: #### 8 [id number] #### BARRY Urinalysis Automated Subsection [facility] [place] [id number] RBC morphology finding Nom (Bld) SEE MORPHOLOGY Normal [facility] Comment on above: Order Comment: Strai ght Cath as needed Performed By: #### 8 [id number] #### BARRY Urinalysis Automated Subsection [facility] [place] [address] Teardrop Cell 1+ Normal [facility] Comment on above: Order Comment: Strai ght Cath as needed Performed By: #### 8 [id number] #### BARRY Urinalysis Automated Subsection [address] [place] [address] Salicylateon 02-21-2019 Salicylate Lvl <1.5 Low 4.0-20.0 [facility] Comment on above: Performed By: #### 2 [id number] #### BARRY RemHemo [address] [place] [address] TSHon 02-21-2019 TSH Qn 4.82 mcIU/mL Normal 0.30-5.60 [facility] Comment on above: Order Comment: With T4fr Reflex Performed By: #### 2 225698 #### BARRY Microbiology Subsection [address] [place] [address] U BhCG Qlton 02-21-2019 HCG.beta subunit Qn Negative Normal Neg [facility] Comment on above: Performed By: #### 2 770624 #### BARRY Microbiology Subsection [facility] [place] [address] U Creatinineon 02-21-2019 U Creatinine 31 mg/dL Normal 20-300 [facility] Comment on above: Performed By: #### 2 752317 #### BARRY RemHemo [address] [place] [address] U Proteinon 02-21-2019 Protein [Mass/Vol] 4 mg/dL Normal 1-14 [facility] Comment on above: Performed By: #### 2 428040 #### BARRY RemHemo [address] [place] [address] U Sodiumon 02-21-2019 Sodium [Moles/Vol] 36 mmol/L Normal [facility] Comment on above: Performed By: #### 2 169790 #### BARRY Microbiology Subsection [facility] [place] [address] UA Completeon 02-21-2019 Color (U) Straw Normal Yellow [facility] Comment on above: Order Comment: Strai ght Cath as needed Performed By: #### 2 209589 #### BARRY Microbiology Subsection [address] [place] [address] Glucose (U) [Mass/Vol] Negative Normal Negative [facility] Comment on above: Order Comment: Strai ght Cath as needed Performed By: #### 2 467992 #### BARRY Microbiology Subsection [address] [place] [address] Ketones Ql (U) Negative Normal Negative [facility] Comment on above: Order Comment: Strai ght Cath as needed Performed By: #### 2 742244 #### BARRY Microbiology Subsection [address] [place] [address] RBC (U) [#/Vol] 0-3 Normal 0-3 [facility] Comment on above: Order Comment: Strai ght Cath as needed Performed By: #### 2 284737 #### BARRY Microbiology Subsection [address] [place] [address] UA Blood Negative Normal Negative [facility] Comment on above: Order Comment: Strai ght Cath as needed Performed By: #### 2 066899 #### BARRY Microbiology Subsection [address] [place] [address] UA Bacteria Trace Abnormal None [facility] Comment on above: Order Comment: Strai ght Cath as needed Performed By: #### 2 026356 #### BARRY Microbiology Subsection [address] [place] [address] UA Clarity SltCloudy Abnormal Clear [facility] Comment on above: Order Comment: Strai ght Cath as needed Performed By: #### 2 [id number] #### BARRY Microbiology Subsection [address] [place] [address] UA Leuk Est 1+ Abnormal Negative [facility] Comment on above: Order Comment: Strai ght Cath as needed Performed By: #### 2 753122 #### BARRY Microbiology Subsection [address] [place] [address] UA Mucous Trace Abnormal Trace [facility] Comment on above: Order Comment: Strai ght Cath as needed Performed By: #### 2 193350 #### BARRY Microbiology Subsection [address] [place] [address] UA Nitrite Negative Normal Negative [facility] Comment on above: Order Comment: Strai ght Cath as needed Performed By: #### 2 582487 #### BARRY Microbiology Subsection [address] [place] [address] UA pH 5.0 Normal 4.6-8.0 [facility] Comment on above: Order Comment: Strai ght Cath as needed Performed By: #### 2 732205 #### BARRY Microbiology Subsection [address] [place] [address] UA Protein Negative Normal Negative [facility] Comment on above: Order Comment: Strai ght Cath as needed Performed By: #### 2 695767 #### BARRY Microbiology Subsection [address] [place] [address] UA Spec Grav 1.005 Normal 1.003-1.030 [facility] Comment on above: Order Comment: Strai ght Cath as needed Performed By: #### 2 383800 #### BARRY Microbiology Subsection [address] [place] [address] UA Squam Epithelial 5-10 Abnormal 0-5 [facility] Comment on above: Order Comment: Strai ght Cath as needed Performed By: #### 2 128192 #### BARRY Microbiology Subsection [address] [place] [address] UA Urobilinogen Negative Normal [facility] Comment on above: Order Comment: Strai ght [...] within 24 hours. Performed By: #### 2 [id number] #### BARRY Microbiology Subsection [address] [place] [address] UA WBC 0-5 Normal 0-5 [facility] Comment on above: Order Comment: Strai ght Cath as needed Performed By: #### 2 988727 #### BARRY Microbiology Subsection [address] [place] [address] Urobilinogen Qn (U) Negative Normal Negative [facility] Comment on above: Order Comment: Strai ght Cath as needed Performed By: #### 2 [id number] #### BARRY Microbiology Subsection [facility] [place] [address] Valproic Acidon 02-21-2019 Valpro Acid Lvl 102 microgram/mL Critically abnormal 50-100 [facility] Comment on above: Result Comment: Crit ical Result (s) Called to and read back by: XUAN GARCIA at: 02/21/2019 18:51:29 by:ZOFIA Performed By: #### 2 [id number] #### BARRY RemHemo [address] [place] [address] Valpro Acid Lvl 101 microgram/mL Critically abnormal 50-100 [facility] Comment on above: Result Comment: Crit ical Result (s) Called to and read back by: XUAN GARCIA at: 02/21/2019 13:43:39 by:RAY Performed By: #### 2 [id number] #### BARRY Microbiology Subsection [facility] [place] [address] eGFRon 02-21-2019 GFR/1.73 sq M predicted among non-blacks MDRD (S/P/Bld) [Vol rate/Area] 49 mL/min/1.73 m2 [facility] Comment on above: Order Comment: Strai ght Cath as needed Performed By: #### 8 [id number] #### BARRY Urinalysis Automated Subsection [facility] [place] [address] GFR/1.73 sq M predicted among non-blacks MDRD (S/P/Bld) [Vol rate/Area] 40 mL/min/1.73 m2 [facility] Comment on above: Order Comment: Strai ght Cath as needed Performed By: #### 8 [id number] #### BARRY Urinalysis Automated Subsection [facility] [place] [address] zzplt morphon 02-21-2019 Platelet morphology finding Nom (Bld) ENLARGED [facility] Comment on above: Performed By: #### 8 [id number] #### BARRY Urinalysis Automated Subsection [facility] [place] [address] Platelets (Bld) [#/Vol] DECREASED [facility] Comment on above: Performed By: #### 8 [id number] #### BARRY Urinalysis Automated Subsection [facility] [place] [address] NM Myocardial Perfusion Stud y Single - Stress Onlyon 12-26-2018 Nuclear Report _ Patient: PABLO BENAVIDEZ Med Rec#: [id number] (Age): 1975(43y) Height: Study Date: 12/26/2018 Weight: [...] at 12/26/2018 14:58:38 by: Zeke Onofre MD, [facility], Rad In [facility] [place] - 12/26/2018 3:48 PM EDT Nuclear Report _ Patient: PABLO BENAVIDEZ [facility] Rec#: [id number] (Age): 1975(43y) Height: Study Date: 12/26/2018 Weight: [...] imaging protocol was followed using Tc-99m tetrofosmin (Xangaview) injected intravenously. For the stress portion of [...] 12/26/2018 14:58:38 by: Zeke Onofre MD, RV[facility] Influenza A&B Agon 9 Influenzae A Ag Negative Normal Negative [facility] Comment on above: Result Comment: Test Performed by PCR Testing Performed By: #### 8 [id number] #### BARRY Urinalysis Automated Subsection [address] [place] [id number] Influenzae B Ag Negative Normal Negative [facility] Comment on above: Result Comment: Test Performed by PCR Testing Performed By: #### 8 [id number] #### BARRY Urinalysis Automated Subsection [address] [place] [address] XR Chest 2 Viewson 9 XR Chest 2 Views Exam Date/Time: 12/21/2018 04:05 EST Reason for Exam: Cough Report STUDY: XR Chest 2 Views; 12/21/2018 4:05 am INDICATION: Cough. COMPARISON: 10/02/2018 ACCESSION NUMBER(S): [id number] ORDERING CLINICIAN: Bob Wick FINDINGS: No significant [...] Nicole Anderson MD Technologist: TAMIKO Del Rio [facility] Auto Diffon 12-12-2018 Basophils (Bld) [#/Vol] 0.0 E3/mcL Normal 0.0-0.2 [facility] Comment on above: Order Comment: With T4fr Reflex Performed By: #### 2 [id number] #### BARRY Rem[employer] [address] [place] [address] Basophils/100 WBC (Bld) 0.4 % Normal 0.0-2.0 [facility] Comment on above: Order Comment: With T4fr Reflex Performed By: #### 2 [id number] #### BARRY [employer] [address] [place] [address] Eos Absolute 0.0 E3/mcL Normal 0.0-0.7 [facility] Comment on above: Order Comment: With T4fr Reflex Performed By: #### 2 737009 #### BARRY [employer] [address] [place] [address] Eosinophils/100 WBC (Bld) 0.1 % Normal 0.0-11.0 [facility] Comment on above: Order Comment: With T4fr Reflex Performed By: #### 2 [id number] #### BARRY [employer] [address] [place] [address] Lymphocytes (Bld) [#/Vol] 0.6 E3/mcL Low 1.2-3.4 [facility] Comment on above: Order Comment: With T4fr Reflex Performed By: #### 2 [id number] #### BARRY [employer] [address] [place] [address] Lymphocytes/100 WBC (Bld) 9.6 % Low 20.0-55.0 [facility] Comment on above: Order Comment: With T4fr Reflex Performed By: #### 2 527052 #### BARRY [employer] [address] [place] [address] [place] Absolute 0.6 E3/mcL Normal 0.0-0.7 [facility] Comment on above: Order Comment: With T4fr Reflex Performed By: #### 2 560055 #### BARRY [employer] [address] [place] [address] Monocytes/100 WBC (Bld) 9.4 % Normal 0.0-10.0 [facility] Comment on above: Order Comment: With T4fr Reflex Performed By: #### 2 637436 #### BARRY [employer] [address] [place] [address] Neutro Absolute 5.0 E3/mcL Normal 1.4-6.5 [facility] Comment on above: Order Comment: With T4fr Reflex Performed By: #### 2 925091 #### BARRY [employer] [address] [place] [address] Neutro Auto 80.5 % High 37.0-75.0 [facility] Comment on above: Order Comment: With T4fr Reflex Performed By: #### 2 980185 #### BARRY [employer] [address] [place] [address] BMPon 12-12-2018 Anion gap [Moles/Vol] 16 mmol/L Normal 10-20 [facility] Comment on above: Performed By: #### 2 [id number] #### BARRY Rem[employer] [address] [place] [address] Calcium [Mass/Vol] 9.5 mg/dL Normal 8.6-10.3 [facility] Comment on above: Performed By: #### 2 423125 #### BARRY Rem[employer] [address] [place] [address] Chloride [Moles/Vol] 105 mmol/L Normal 98-107 [facility] Comment on above: Performed By: #### 2 246539 #### BARRY Rem[employer] [address] [place] [address] CO2 [Moles/Vol] 20.0 mmol/L Low 21.0-32.0 [facility] Comment on above: Performed By: #### 2 192637 #### BARRY Rem[employer] [address] [place] [address] Creatinine [Mass/Vol] 1.6 mg/dL High 0.5-1.1 [facility] Comment on above: Performed By: #### 2 515651 #### BARRY Rem[employer] [address] [place] [address] Glucose [Mass/Vol] 150 mg/dL High 70-99 [facility] Comment on above: Performed By: #### 2 170515 #### BARRY [employer] [address] [place] [address] Potassium [Moles/Vol] 4.4 mmol/L Normal 3.5-5.3 [facility] Comment on above: Performed By: #### 2 077096 #### BARRY RemChem [facility]5 [place] [address] Sodium [Moles/Vol] 137 mmol/L Normal 136-145 [facility] Comment on above: Performed By: #### 2 035393 #### BARRY RemChem [facility] [place] [address] Urea nitrogen [Mass/Vol] 27 mg/dL High 6-23 [facility] Comment on above: Performed By: #### 2 244520 #### BARRY [employer] [address] [place] [address] Urea nitrogen/Creatinine [Mass ratio] 16.9 ratio Normal 5.4-30.0 [facility] Comment on above: Performed By: #### 2 658216 #### BARRY [employer] [facility] [place] [address] CBC w/ Auto Diffon 9 Erythrocyte distribution width (RBC) [Ratio] 13.8 % Normal 11.5-14.5 [facility] Comment on above: Performed By: #### 2 020833 #### BARRY [employer] [address] [place] [address] Hematocrit (Bld) [Volume fraction] 44.1 % Normal 36.0-48.0 [facility] Comment on above: Performed By: #### 2 960425 #### BARRY [employer] [address] [place] [address] Hemoglobin (Bld) [Mass/Vol] 14.4 g/dL Normal 12.0-16.0 [facility] Comment on above: Performed By: #### 2 670678 #### BARRYShawn [facility] [address] [place] [address] MCH (RBC) [Entitic mass] 30.3 pg Normal 27.0-31.0 [facility] Comment on above: Performed By: #### 2 329399 #### BARRY [employer] [address] [place] [address] MCHC (RBC) [Mass/Vol] 32.7 g/dL Low 33.0-37.0 [facility] Comment on above: Performed By: #### 2 674315 #### BARRYShawn WilcoxChem [facility] [place] [address] MCV (RBC) [Entitic vol] 92.9 fL Normal 78.0-100.0 [facility] Comment on above: Performed By: #### 2 377420 #### BARRYShawn WilcoxChem [facility]5 [place] [address] Platelet mean volume (Bld) [Entitic vol] 8.1 fL Normal 7.4-11.0 [facility] Comment on above: Performed By: #### 2 740175 #### BARRYShawn WilcoxChem [facility]5 [place] [address] Platelets (Bld) [#/Vol] 122 E3/mcL Low 130-400 [facility] Comment on above: Performed By: #### 2 707455 #### BARRY [employer] [address] [place] [address] RBC (Bld) [#/Vol] 4.75 E6/mcL Normal 3.90-5.40 [facility] Comment on above: Performed By: #### 2 528732 #### BARRY [employer] [address] [place] [address] WBC (Bld) [#/Vol] 6.2 E3/mcL Normal 3.6-11.0 [facility] Comment on above: Performed By: #### 2 959247 #### BARRY [employer] [address] [place] [address] Ethanolon 12-12-2018 Ethanol [Mass/Vol] mg/dL Normal <=10 [facility] Comment on above: Performed By: #### 2 845516 #### BARRYSahwn [facility] [address] [place] [address] Hep Func Panelon 12-12-2018 Albumin [Mass/Vol] 4.4 g/dL Normal 3.4-5.0 [facility] Comment on above: Performed By: #### 2 942921 #### BARRY JeriFabian [facility]5 [place] [address] Albumin/Globulin [Mass ratio] 1.3 {ratio} Normal 1.1-1.9 [facility] Comment on above: Performed By: #### 2 758854 #### BARRY Jeri[employer] [facility] [place] [address] Alk Phos 69 Int._Unit/L Normal 33-110 [facility] Comment on above: Performed By: #### 2 761161 #### BARRY [employer] [address] [place] [address] ALT [Catalytic activity/Vol] 34 Int._Unit/L Normal 7-45 [facility] Comment on above: Performed By: #### 2 927293 #### BARRY [employer] [address] [place] [address] AST [Catalytic activity/Vol] 69 Int._Unit/L High 9-39 [facility] Comment on above: Performed By: #### 2 879155 #### BARRY [employer] [address] [place] [address] Bili Direct 0.26 mg/dL Normal 0.00-0.30 [facility] Comment on above: Performed By: #### 2 013899 #### BARRY [employer] [address] [place] [address] Bili Indirect 0.57 mg/dL Normal [facility] Comment on above: Result Comment: No e stablished ranges available for the indirect bilirubin Performed By: #### 2 418993 #### BARRY [employer] [address] [place] [address] Bili Total 0.83 mg/dL Normal 0.00-1.20 [facility] Comment on above: Performed By: #### 2 114796 #### BARRY [employer] [address] [place] [address] Globulin (S) [Mass/Vol] 3.0 g/dL Normal 2.0-4.0 [facility] Comment on above: Performed By: #### 2 229699 #### BARRY [employer] [address] [place] [address] Protein [Mass/Vol] 7.7 g/dL Normal 6.4-8.2 [facility] Comment on above: Performed By: #### 2 166933 #### BARRY [employer] [address] [place] [address] Magnesiumon 12-12-2018 Magnesium [Mass/Vol] 2.0 mg/dL Normal 1.6-2.4 [facility] Comment on above: Performed By: #### 2 860414 #### BARRY [employer] [address] [place] [address] Troponin-Ion 12-12-2018 Troponin I.cardiac [Mass/Vol] 0.01 ng/mL Normal .00-.03 [facility] Comment on above: Performed By: #### 2 267098 #### BARRY [employer] [address] [place] [address] U Drug Screenon 12-12-2018 U Amph Scr Negative Normal Negative [facility] Comment on above: Performed By: #### 2 517199 #### BARRY [employer] [address] [place] [address] U Kalyani Scr Negative Normal Negative [facility] Comment on above: Performed By: #### 2 776590 #### BARRY [facility] [address] [place] [address] U Benzodia Scr Negative Normal Negative [facility] Comment on above: Performed By: #### 2 962450 #### BARRY [employer] [address] [place] [address] U Cannab Scr Negative Normal Negative [facility] Comment on above: Performed By: #### 2 370446 #### BARRY [employer] [address] [place] [address] U Cocaine Scr Negative Normal Negative [facility] Comment on above: Performed By: #### 2 962522 #### BARRY [facility] [address] [place] [address] U Opiate Scr Negative Normal Negative [facility] Comment on above: Performed By: #### 2 517334 #### BARRY [employer] [address] [place] [address] U PCP Scr Negative Normal Negative [facility] Comment on above: Performed By: #### 2 566090 #### BARRY [employer] [address] [place] [address] UA Completeon 12-12-2018 Color (U) Minerva Abnormal Yellow [facility] Comment on above: Performed By: #### 2 511035 #### BARRY [facility] [address] [place] [address] Glucose (U) [Mass/Vol] Negative Normal Negative [facility] Comment on above: Performed By: #### 2 186726 #### BARRY [employer] [address] [place] [address] Ketones Ql (U) Trace Normal [facility] Comment on above: Performed By: #### 2 514716 #### BARRY [employer] [address] [place] [address] RBC (U) [#/Vol] 3-5 Abnormal 0-3 [facility] Comment on above: Performed By: #### 2 783419 #### BARRY [employer] [address] [place] [address] UA Blood 2+ Abnormal Negative [facility] Comment on above: Performed By: #### 2 179547 #### BARRY [employer] [address] [place] [address] UA Clarity Cloudy Abnormal Clear [facility] Comment on above: Performed By: #### 2 521530 #### BARRY [employer] [address] [place] [address] UA Hyal Cast 5-10 Abnormal 0-[address] [facility] Comment on above: Performed By: #### 2 379256 #### BARRY [employer] [address] [place] [address] UA Leuk Est 3+ Abnormal Negative [facility] Comment on above: Performed By: #### 2 357158 #### BARRY [employer] [address] [place] [address] UA Nitrite Negative Normal Negative [facility] Comment on above: Performed By: #### 2 855284 #### BARRY [employer] [address] [place] [address] UA pH 5.0 Normal 4.6-8.0 [facility] Comment on above: Performed By: #### 2 754059 #### BARRY [facility] [address] [place] [address] UA Protein Negative Normal Negative [facility] Comment on above: Performed By: #### 2 637956 #### BARRY [employer] [facility] [place] [id number] UA Spec Grav 1.020 Normal 1.003-1.030 [facility] Comment on above: Performed By: #### 2 101423 #### BARRY [employer] [facility] [place] [address] UA Squam Epithelial 20-30 Abnormal 0-5 [facility] Comment on above: Performed By: #### 2 140027 #### BARRY [employer] [facility] [place] [id number] UA Urobilinogen 2.0 mg/dL Abnormal [facility] Comment on above: Result Comment: Due to a manufacturing issue, low positive urobilinogen results may be fasely positive. Correlate with urine bilirubin and additional clinical/laboratory findings to assess the risk of hemolytic anemia or liver disease. If clinically indicated, repeat testing with an alternate method is available by contacting the laboratory within 24 hours. Performed By: #### 2 [id number] #### BARRY [facility] [address] [place] [address] UA WBC 10-20 Abnormal 0-5 [facility] Comment on above: Performed By: #### 2 086374 #### BARRY [employer] [facility]5 [place] [address] Urobilinogen Qn (U) Negative Normal Negative [facility] Comment on above: Performed By: #### 2 690105 #### BARRY [employer] [facility]5 [place] [address] eGFRon 12-12-2018 GFR/1.73 sq M predicted among non-blacks MDRD (S/P/Bld) [Vol rate/Area] 42 mL/min/1.73 m2 Normal [facility] Comment on above: Order Comment: With T4fr Reflex Performed By: #### 2 459261 #### BARRY [employer] [address] [place] [address] GFR/1.73 sq M predicted among non-blacks MDRD (S/P/Bld) [Vol rate/Area] 35 mL/min/1.73 m2 Normal [facility] Comment on above: Order Comment: With T4fr Reflex Performed By: #### 2 299348 #### [facility] [address] [place] [address] Auto Diffon 12-03-2018 Basophils (Bld) [#/Vol] 0.0 E3/mcL Normal 0.0-0.2 [facility] Comment on above: Order Comment: Order added by Discern Expert. Performed By: #### 1 [id number] #### BARRY [employer] [address] [place] [address] Basophils/100 WBC (Bld) 0.6 % Normal 0.0-2.0 [facility] Comment on above: Order Comment: Order added by Discern Expert. Performed By: #### 1 [id number] #### BARRY [employer] [address] [place] [address] Eos Absolute 0.1 E3/mcL Normal 0.0-0.7 [facility] Comment on above: Order Comment: Order added by Discern Expert. Performed By: #### 1 [id number] #### BARRY Rem[address] [address] Eosinophils/100 WBC (Bld) 2.6 % Normal 0.0-11.0 [facility] Comment on above: Order Comment: Order added by Discern Expert. Performed By: #### 1 [id number] #### BARRY [employer] [address] [place] [address] Lymphocytes (Bld) [#/Vol] 1.2 E3/mcL Normal 1.2-3.4 [facility] Comment on above: Order Comment: Order added by Discern Expert. Performed By: #### 1 0673573 #### BARRY [employer] [address] [place] [address] Lymphocytes/100 WBC (Bld) 27.2 % Normal 20.0-55.0 [facility] Comment on above: Order Comment: Order added by Discern Expert. Performed By: #### 1 [id number] #### BARRY Wilcox[address] [address] [place] Absolute 0.3 E3/mcL Normal 0.0-0.7 [facility] Comment on above: Order Comment: Order added by Discern Expert. Performed By: #### 1 1692758 #### BARRY Wilcox[address] [address] Monocytes/100 WBC (Bld) 7.7 % Normal 0.0-10.0 [facility] Comment on above: Order Comment: Order added by Discern Expert. Performed By: #### 1 0961300 #### BARRY [place] [id number] Neutro Absolute 2.8 E3/mcL Normal 1.4-6.5 [facility] Comment on above: Order Comment: Order added by Discern Expert. Performed By: #### 1 [id number] #### [place] [address] Neutro Auto 61.9 % Normal 37.0-75.0 [facility] Comment on above: Order Comment: Order added by Discern Expert. Performed By: #### 1 [id number] #### BARRY [place] [id number] CBC w/ Auto Diffon 9 Erythrocyte distribution width (RBC) [Ratio] 12.9 % Normal 11.5-14.5 [facility] Comment on above: Performed By: #### 1 [id number] #### BARRY Wilcox[address] [address] Hematocrit (Bld) [Volume fraction] 42.4 % Normal 36.0-48.0 [facility] Comment on above: Performed By: #### 1 2674441 #### BARRY Wilcox[address] [address] Hemoglobin (Bld) [Mass/Vol] 14.1 g/dL Normal 12.0-16.0 [facility] Comment on above: Performed By: #### 1 [id number] #### BARRY Jeri[address] [address] MCH (RBC) [Entitic mass] 30.5 pg Normal 27.0-31.0 [facility] Comment on above: Performed By: #### 1 [id number] #### BARRY JeriFabian [facility] [place] [address] MCHC (RBC) [Mass/Vol] 33.3 g/dL Normal 33.0-37.0 [facility] Comment on above: Performed By: #### 1 [id number] #### BARRYShawn Zelaya [facility]5 [place] [address] MCV (RBC) [Entitic vol] 91.5 fL Normal 78.0-100.0 [facility] Comment on above: Performed By: #### 1 [id number] #### BARRY JeriFabian [facility]5 [place] [address] Platelet mean volume (Bld) [Entitic vol] 7.2 fL Low 7.4-11.0 [facility] Comment on above: Performed By: #### 1 [id number] #### BARRY Jeri[address] [address] Platelets (Bld) [#/Vol] 121 E3/mcL Low 130-400 [facility] Comment on above: Performed By: #### 1 [id number] #### BARRY [employer] [facility] [place] [address] RBC (Bld) [#/Vol] 4.64 E6/mcL Normal 3.90-5.40 [facility] Comment on above: Performed By: #### 1 8063909 #### BARRYShawn Zelaya [facility]5 [place] [address] WBC (Bld) [#/Vol] 4.5 E3/mcL Normal 3.6-11.0 [facility] Comment on above: Performed By: #### 1 [id number] #### BARRY [employer] [address] [place] [address] CMPon 12-03-2018 Albumin [Mass/Vol] 3.6 g/dL Normal 3.4-5.0 [facility] Comment on above: Performed By: #### 1 7761044 #### BARRY [employer] [facility] [place] [address] Albumin/Globulin [Mass ratio] 1.5 {ratio} Normal 1.1-1.9 [facility] Comment on above: Performed By: #### 1 [id number] #### BARRY [facility] [address] [place] [address] Alk Phos 69 Int._Unit/L Normal 33-110 [facility] Comment on above: Performed By: #### 1 [id number] #### BARRY [employer] [address] [place] [address] ALT [Catalytic activity/Vol] 13 Int._Unit/L Normal 7-45 [facility] Comment on above: Performed By: #### 1 [id number] #### BARRY [employer] [address] [place] [address] Anion gap [Moles/Vol] 12 mmol/L Normal 10-20 [facility] Comment on above: Performed By: #### 1 2552966 #### BARRY [employer] [address] [place] [address] AST [Catalytic activity/Vol] 19 Int._Unit/L Normal 9-39 [facility] Comment on above: Performed By: #### 1 [id number] #### BARRY [employer] [address] [place] [address] Bili Total 0.35 mg/dL Normal 0.00-1.20 [facility] Comment on above: Performed By: #### 1 [id number] #### BARRY [employer] [address] [place] [address] Calcium [Mass/Vol] 8.3 mg/dL Low 8.6-10.3 [facility] Comment on above: Performed By: #### 1 [id number] #### BARRY [employer] [address] [place] [address] Chloride [Moles/Vol] 110 mmol/L High 98-107 [facility] Comment on above: Performed By: #### 1 0341875 #### BARRY [employer] [address] [place] [address] CO2 [Moles/Vol] 22.0 mmol/L Normal 21.0-32.0 [facility] Comment on above: Performed By: #### 1 [id number] #### BARRY [employer] [address] [place] [address] Creatinine [Mass/Vol] 1.3 mg/dL High 0.5-1.1 [facility] Comment on above: Performed By: #### 1 [id number] #### BARRY [employer] [facility] [place] [address] Globulin (S) [Mass/Vol] 2.0 g/dL Normal 2.0-4.0 [facility] Comment on above: Performed By: #### 1 [id number] #### BARRY [employer] [address] [place] [address] Glucose [Mass/Vol] 133 mg/dL High 70-99 [facility] Comment on above: Performed By: #### 1 [id number] #### BARRY [employer] [address] [place] [address] Potassium [Moles/Vol] 4.2 mmol/L Normal 3.5-5.3 [facility] Comment on above: Performed By: #### 1 [id number] #### BARRY [employer] [address] [place] [address] Protein [Mass/Vol] 6.0 g/dL Low 6.4-8.2 [facility] Comment on above: Performed By: #### 1 [id number] #### BARRY [employer] [address] [place] [address] Sodium [Moles/Vol] 140 mmol/L Normal 136-145 [facility] Comment on above: Performed By: #### 1 [id number] #### BARRY [employer] [facility] [place] [address] Urea nitrogen [Mass/Vol] 9 mg/dL Normal 6-23 [facility] Comment on above: Performed By: #### 1 [id number] #### BARRY [employer] [address] [place] [address] Urea nitrogen/Creatinine [Mass ratio] 6.9 ratio Normal 5.4-30.0 [facility] Comment on above: Performed By: #### 1 [id number] #### BARRY [facility] [address] [place] [address] CT Abdomen/Pelvis w/o Contra ston 12-03-2018 CT Abdomen/Pelvis w/o Contrast Exam Date/Time: 12/03/2018 00:08 EST Reason for Exam: Pain Report STUDY: CT Abdomen/Pelvis w/o Contrast; 12/03/2018 12:08 am INDICATION: Pain. COMPARISON: 09/22/2018 ACCESSION NUMBER(S): [id number] ORDERING CLINICIAN: Heidy Lane TECHNIQUE: Axial noncontrast [...] by: Nicole Anderson MD Technologist: JACKSON Normal [facility] Lipase Levelon 12-03-2018 Lipase Lvl 38 Int._Unit/L Normal 9-82 [facility] Comment on above: Performed By: #### 1 [id number] #### BARRY [facility] [address] [place] [address] U BhCG Qlton 12-03-2018 HCG.beta subunit Qn Negative Normal Neg [facility] Comment on above: Performed By: #### 1 [id number] #### BARRY [employer] [address] [place] [id number] UA Completeon 12-03-2018 Color (U) Yellow Normal Yellow [facility] Comment on above: Performed By: #### 1 [id number] #### BARRY [employer] [address] [place] [address] Glucose (U) [Mass/Vol] Negative Normal Negative [facility] Comment on above: Performed By: #### 1 [id number] #### BARRY [facility] [address] [place] [address] Ketones Ql (U) Negative Normal Negative [facility] Comment on above: Performed By: #### 1 [id number] #### BARRY [employer] [address] [place] [address] RBC (U) [#/Vol] 3-5 Abnormal 0-3 [facility] Comment on above: Performed By: #### 1 [id number] #### [facility] [employer] [address] [place] [address] UA Blood Negative Normal Negative [facility] Comment on above: Performed By: #### 1 [id number] #### [facility] [employer] [address] [place] [address] UA Bacteria 1+ /HPF Abnormal None [facility] Comment on above: Performed By: #### 1 [id number] #### [facility] [employer] [address] [place] [address] UA Clarity SltCloudy Abnormal Clear [facility] Comment on above: Performed By: #### 1 [id number] #### [facility] [address] [place] [address] UA Leuk Est Trace Normal Negative [facility] Comment on above: Performed By: #### 1 [id number] #### [facility] [employer] [address] [place] [address] UA Nitrite Negative Normal Negative [facility] Comment on above: Performed By: #### 1 [id number] #### [facility] [employer] [address] [place] [address] UA pH 6.0 Normal 4.6-8.0 [facility] Comment on above: Performed By: #### 1 [id number] #### [facility] [employer] [address] [place] [address] UA Protein Negative Normal Negative [facility] Comment on above: Performed By: #### 1 [id number] #### [facility] [address] [place] [address] UA Spec Grav 1.016 Normal 1.003-1.030 [facility] Comment on above: Performed By: #### 1 [id number] #### [facility] [employer] [address] [place] [address] UA Squam Epithelial 10-20 Abnormal 0-5 [facility] Comment on above: Performed By: #### 1 [id number] #### [facility] [employer] [address] [place] [address] UA Urobilinogen Negative Normal [facility] Comment on above: Result Comment: Due to a manufacturing issue, low positive urobilinogen results may be fasely positive. Correlate with urine bilirubin and additional clinical/laboratory findings to assess the risk of hemolytic anemia or liver disease. If clinically indicated, repeat testing with an alternate method is available by contacting the laboratory within 24 hours. Performed By: #### 1 [id number] #### [facility] [facility] [place] [id number] UA WBC 5-10 Abnormal 0-5 [facility] Comment on above: Performed By: #### 1 [id number] #### [facility] [employer] [address] [place] [address] Urobilinogen Qn (U) Negative Normal Negative [facility] Comment on above: Performed By: #### 1 [id number] #### [facility] [employer] [address] [place] [address] eGFRon 12-03-2018 GFR/1.73 sq M predicted among non-blacks MDRD (S/P/Bld) [Vol rate/Area] 56 mL/min/1.73 m2 [facility] Comment on above: Order Comment: Order added by Discern Expert. Performed By: #### 1 [id number] #### [facility] [employer] [address] [place] [address] GFR/1.73 sq M predicted among non-blacks MDRD (S/P/Bld) [Vol rate/Area] 46 mL/min/1.73 m2 [facility] Comment on above: Order Comment: Order added by Discern Expert. Performed By: #### 1 [id number] #### [facility] [address] [place] [address] CT Head or Brain w/ + w/o Co ntraston 12-01-2018 CT Head or Brain w/ + w/o Contrast Exam Date/Time: 12/01/2018 12:05 EST Reason for Exam: ABN GAIT Report STUDY: CT Head or Brain w/ + w/o Contrast; 12/01/2018 12:05 pm INDICATION: ABN GAIT. COMPARISON: 04/29/2016 ACCESSION NUMBER(S): [id number] ORDERING CLINICIAN: Ana Hodge TECHNIQUE: Axial images [...] by: Andrey Sunshine MD Technologist: TRAVIS, Normal [facility] Rapid Strep A Screenon 11-27 S. pyogenes Ag IA Ql (Unsp spec) Negative [facility] Comment on above: Performed By: #### 1 [id number] #### [facility] [address] [place] [address] Lipid Panelon 11-22-2018 Cholesterol in HDL mass conc 43 mg/dL 40 - 59 mg/dL [facility] Cholesterol in LDL mass conc 163 mg/dL High 10 - 150 mg/dL [facility] Cholesterol in VLDL mass conc 41 mg/dL High 5 - 40 mg/dL [facility] Cholesterol mass conc 247 mg/dL High 100 - 199 mg/dL [facility] Cholesterol.total/Cho lesterol in HDL mass ratio 5.7 {ratio} High [facility] Comment on above: Female Coronary Hear t Disease Risk Factor (CHDRF): Average risk= 4.4 1/2 Average risk= 3.3 2 times Average risk= 7.1 Interpretation and review of laboratory results Abnormal [facility] Triglyceride mass conc 206 mg/dL High 30 - 150 mg/dL [facility] Cholesterol in HDL mass conc 43 mg/dL Normal 40-59 [facility] Comment on above: Performed By: #### G LUX #### Unless otherwise noted, all testing performed by [place] [address] CLIA: [id number] Line Driver: Ismael Torre M.D. Cholesterol in LDL mass conc 163 mg/dL High 10-150 [facility] Comment on above: Performed By: #### G LUX #### Unless otherwise noted, all testing performed by [place] [address] CLIA: [id number] Line Driver: Ismael Torre M.D. Cholesterol in VLDL mass conc 41 mg/dL High 5-40 [facility] Comment on above: Performed By: #### G LUX #### Unless otherwise noted, all testing performed by [place] [address] CLIA: [id number] Line Driver: Ismael Torre M.D. Cholesterol mass conc 247 mg/dL High 100-199 [facility] Comment on above: Performed By: #### G LUX #### Unless otherwise noted, all testing performed by [place] [address] CLIA: [id number] Line Driver: Ismael Torre M.D. Cholesterol.total/Cho lesterol in HDL mass ratio 5.7 {ratio} High 3.2-5.0 [facility] Comment on above: Result Comment: Hans smith Coronary Heart Disease Risk Factor (CHDRF): Average risk= 4.4 1/2 Average risk= 3.3 2 times Average risk= 7.1 Performed By: #### G LUX #### Unless otherwise noted, all testing performed by [place] [address] CLIA: [id number] Line Driver: Ismael Torre M.D. Triglyceride mass conc 206 mg/dL High 30-150 [facility] Comment on above: Performed By: #### G LUX #### Unless otherwise noted, all testing performed by [place] [address] CLIA: [id number] Line Driver: Ismael Torre M.D. Auto Diffon 11-17-2018 Basophils (Bld) [#/Vol] 0.0 E3/mcL Normal 0.0-0.2 [facility] Comment on above: Order Comment: Order Added by Discern Expert. Performed By: #### 2 [id number] #### [facility] [facility] [place] [address] Basophils/100 WBC (Bld) 0.3 % Normal 0.0-2.0 [facility] Comment on above: Order Comment: Order Added by Discern Expert. Performed By: #### 2 [id number] #### [facility] [address] [place] [address] Eos Absolute 0.1 E3/mcL Normal 0.0-0.7 [facility] Comment on above: Order Comment: Order Added by Discern Expert. Performed By: #### 2 098410 #### [facility] [address] [place] [address] Eosinophils/100 WBC (Bld) 2.4 % Normal 0.0-11.0 [facility] Comment on above: Order Comment: Order Added by Discern Expert. Performed By: #### 2 415836 #### [facility] [address] [place] [address] Lymphocytes (Bld) [#/Vol] 1.2 E3/mcL Normal 1.2-3.4 [facility] Comment on above: Order Comment: Order Added by Discern Expert. Performed By: #### 2 531578 #### [facility] [address] [place] [address] Lymphocytes/100 WBC (Bld) 27.6 % Normal 20.0-55.0 [facility] Comment on above: Order Comment: Order Added by Discern Expert. Performed By: #### 2 081288 #### [facility] [address] [place] [address] [place] Absolute 0.4 E3/mcL Normal 0.0-0.7 [facility] Comment on above: Order Comment: Order Added by Discern Expert. Performed By: #### 2 830636 #### [facility] [address] [place] [address] Monocytes/100 WBC (Bld) 8.8 % Normal 0.0-10.0 [facility] Comment on above: Order Comment: Order Added by Discern Expert. Performed By: #### 2 045319 #### [facility] [address] [place] [address] Neutro Absolute 2.5 E3/mcL Normal 1.4-6.5 [facility] Comment on above: Order Comment: Order Added by Discern Expert. Performed By: #### 2 730330 #### [facility] [address] [place] [address] Neutro Auto 60.4 % Normal 37.0-75.0 [facility] Comment on above: Order Comment: Order Added by Discern Expert. Performed By: #### 2 139316 #### [facility] [address] [place] [address] BMPon 11-17-2018 Anion gap [Moles/Vol] 11 mmol/L Normal 10-20 [facility] Comment on above: Performed By: #### 2 162534 #### [facility] [address] [place] [address] Calcium [Mass/Vol] 8.7 mg/dL Normal 8.6-10.3 [facility] Comment on above: Performed By: #### 2 720770 #### [facility] [address] [place] [address] Chloride [Moles/Vol] 108 mmol/L High 98-107 [facility] Comment on above: Performed By: #### 2 572405 #### [facility] [address] [place] [address] CO2 [Moles/Vol] 21.0 mmol/L Normal 21.0-32.0 [facility] Comment on above: Performed By: #### 2 683393 #### [facility] [address] [place] [address] Creatinine [Mass/Vol] 1.2 mg/dL High 0.5-1.1 [facility] Comment on above: Performed By: #### 2 272571 #### [facility] [address] [place] [address] Glucose [Mass/Vol] 103 mg/dL High 70-99 [facility] Comment on above: Performed By: #### 2 801113 #### [facility] [employer] [facility] [place] [address] Potassium [Moles/Vol] 3.7 mmol/L Normal 3.5-5.3 [facility] Comment on above: Performed By: #### 2 207357 #### [facility] [address] [place] [address] Sodium [Moles/Vol] 136 mmol/L Normal 136-145 [facility] Comment on above: Performed By: #### 2 177098 #### [facility] [employer] [facility] [place] [address] Urea nitrogen [Mass/Vol] 15 mg/dL Normal 6-23 [facility] Comment on above: Performed By: #### 2 318842 #### [facility] [address] [place] [address] Urea nitrogen/Creatinine [Mass ratio] 12.5 ratio Normal 5.4-30.0 [facility] Comment on above: Performed By: #### 2 748312 #### [facility] [address] [place] [address] CBC w/ Auto Diffon 9 Erythrocyte distribution width (RBC) [Ratio] 13.2 % Normal 11.5-14.5 [facility] Comment on above: Performed By: #### 2 431858 #### [facility] [employer] [facility] [place] [address] Hematocrit (Bld) [Volume fraction] 41.0 % Normal 36.0-48.0 [facility] Comment on above: Performed By: #### 2 464404 #### [employer] [employer] [address] [place] [address] Hemoglobin (Bld) [Mass/Vol] 13.8 g/dL Normal 12.0-16.0 [facility] Comment on above: Performed By: #### 2 002625 #### [employer]Shawn [employer] [facility] [place] [address] MCH (RBC) [Entitic mass] 30.9 pg Normal 27.0-31.0 [facility] Comment on above: Performed By: #### 2 295777 #### [facility] [employer] [address] [place] [address] MCHC (RBC) [Mass/Vol] 33.6 g/dL Normal 33.0-37.0 [facility] Comment on above: Performed By: #### 2 536373 #### [facility] [employer] [address] [place] [address] MCV (RBC) [Entitic vol] 91.9 fL Normal 78.0-100.0 [facility] Comment on above: Performed By: #### 2 458306 #### [employer] [employer] [facility]5 [place] [address] Platelet mean volume (Bld) [Entitic vol] 7.6 fL Normal 7.4-11.0 [facility] Comment on above: Performed By: #### 2 235327 #### [employer] [employer] [address] [place] [address] Platelets (Bld) [#/Vol] 82 E3/mcL Low 130-400 [facility] Comment on above: Performed By: #### 2 944188 #### [facility] [employer] [address] [place] [address] RBC (Bld) [#/Vol] 4.46 E6/mcL Normal 3.90-5.40 [facility] Comment on above: Performed By: #### 2 108703 #### [facility] [address] [place] [address] WBC (Bld) [#/Vol] 4.2 E3/mcL Normal 3.6-11.0 [facility] Comment on above: Performed By: #### 2 461729 #### [facility] [address] [place] [address] Hep Func Panelon 11-17-2018 Albumin [Mass/Vol] 3.8 g/dL Normal 3.4-5.0 [facility] Comment on above: Performed By: #### 2 851405 #### [facility] [address] [place] [address] Albumin/Globulin [Mass ratio] 1.8 {ratio} Normal 1.1-1.9 [facility] Comment on above: Performed By: #### 2 175566 #### [facility] [address] [place] [address] Alk Phos 59 Int._Unit/L Normal 33-110 [facility] Comment on above: Performed By: #### 2 122523 #### [facility] [address] [place] [address] ALT [Catalytic activity/Vol] 18 Int._Unit/L Normal 7-45 [facility] Comment on above: Performed By: #### 2 431212 #### [facility] [address] [place] [address] AST [Catalytic activity/Vol] 28 Int._Unit/L Normal 9-39 [facility] Comment on above: Performed By: #### 2 175919 #### [facility] [address] [place] [address] Bili Direct 0.07 mg/dL Normal 0.00-0.30 [facility] Comment on above: Performed By: #### 2 505122 #### [facility] [address] [place] [address] Bili Indirect 0.38 mg/dL Normal [facility] Comment on above: Result Comment: No e stablished ranges available for the indirect bilirubin Performed By: #### 2 098984 #### [facility] [address] [place] [address] Bili Total 0.45 mg/dL Normal 0.00-1.20 [facility] Comment on above: Performed By: #### 2 996329 #### [facility] [employer] [facility]5 [place] [address] Globulin (S) [Mass/Vol] 2.0 g/dL Normal 2.0-4.0 [facility] Comment on above: Performed By: #### 2 597317 #### [facility] [employer] [facility]5 [place] [address] Protein [Mass/Vol] 5.9 g/dL Low 6.4-8.2 [facility] Comment on above: Performed By: #### 2 952097 #### [facility] [address] [address] Lipase Levelon 11-17-2018 Lipase Lvl 48 Int._Unit/L Normal 82 [facility] Comment on above: Performed By: #### 2 585187 #### [facility] [employer] [address] [place] [address] Morphon 11-17-2018 RBC morphology finding Nom (Bld) NORMAL Normal [facility] Comment on above: Order Comment: Order Added by Discern Expert. Performed By: #### 2 028710 #### [facility] [employer] [place] [address] U BhCG Qlton 11-17-2018 HCG.beta subunit Qn Negative Normal Neg [facility] Comment on above: Performed By: #### 2 462977 #### [facility] [employer] [address] [place] [address] UA Completeon 11-17-2018 Color (U) Straw Normal Yellow [facility] Comment on above: Performed By: #### 2 785176 #### [place] [address] [address] Glucose (U) [Mass/Vol] Negative Normal Negative [facility] Comment on above: Performed By: #### 2 636458 #### [facility] [place] [address] [place] [address] Ketones Ql (U) Negative Normal Negative [facility] Comment on above: Performed By: #### 2 596710 #### [facility] [address] [place] [address] UA Blood Negative Normal Negative [facility] Comment on above: Performed By: #### 2 037992 #### [facility] [address] [place] [address] UA Clarity Clear Normal Clear [facility] Comment on above: Performed By: #### 2 239142 #### [facility] [address] [place] [address] UA Leuk Est Negative Normal Negative [facility] Comment on above: Performed By: #### 2 718711 #### [facility] [address] [place] [address] UA Nitrite Negative Normal Negative [facility] Comment on above: Performed By: #### 2 641882 #### [facility] [address] [place] [address] UA pH 6.0 Normal 4.6-8.0 [facility] Comment on above: Performed By: #### 2 525903 #### [facility] [address] [place] [address] UA Protein Negative Normal Negative [facility] Comment on above: Performed By: #### 2 207685 #### [facility] [address] [place] [address] UA Spec Grav 1.009 Normal 1.003-1.030 [facility] Comment on above: Performed By: #### 2 342017 #### [facility] [address] [place] [address] UA Squam Epithelial 0-5 Normal 0-5 [facility] Comment on above: Performed By: #### 2 235420 #### [facility] [address] [place] [address] UA Urobilinogen Negative Normal [facility] Comment on above: Result Comment: Due to a manufacturing issue, low positive urobilinogen results may be fasely positive. Correlate with urine bilirubin and additional clinical/laboratory findings to assess the risk of hemolytic anemia or liver disease. If clinically indicated, repeat testing with an alternate method is available by contacting the laboratory within 24 hours. Performed By: #### 2 999008 #### [facility] [employer] [facility] [place] [id number] UA WBC 0-5 Normal 0-5 [facility] Comment on above: Performed By: #### 2 852993 #### [facility] [employer] [facility] [place] [id number] Urobilinogen Qn (U) Negative Normal Negative [facility] Comment on above: Performed By: #### 2 870329 #### [facility] [employer] [facility] [place] [id number] eGFRon 11-17-2018 GFR/1.73 sq M predicted among non-blacks MDRD (S/P/Bld) [Vol rate/Area] 56 mL/min/1.73 m2 Normal [facility] Comment on above: Order Comment: Order added by Discern Expert. Performed By: #### 2 493209 #### [facility] Zelaya [facility]5 [place] [address] GFR/1.73 sq M predicted among non-blacks MDRD (S/P/Bld) [Vol rate/Area] 46 mL/min/1.73 m2 Normal [facility] Comment on above: Order Comment: Order added by Discern Expert. Performed By: #### 2 743090 #### [facility] [employer] [address] [place] [address] zzplt morphon 11-17-2018 Platelet morphology finding Nom (Bld) ENLARGED Normal [facility] Comment on above: Performed By: #### 2 352074 #### [facility] Zelaya [facility] [place] [id number] Platelets (Bld) [#/Vol] DECREASED Normal [facility] Comment on above: Performed By: #### 2 326942 #### [facility] [employer] [facility]5 [place] [address] Lab Miscellaneouson 10-28-19 19 Status See Ref Lab Report Normal [facility] Comment on above: Performed By: #### 2 217055 #### [facility] [employer] [facility] [place] [id number] CBC w/ Auto Diffon 9 Erythrocyte distribution width (RBC) [Ratio] 13.2 % Normal 11.5-14.5 [facility] Comment on above: Performed By: #### 2 093173 #### [facility] [employer] [address] [place] [address] Hematocrit (Bld) [Volume fraction] 44.4 % Normal 36.0-48.0 [facility] Comment on above: Performed By: #### 2 194684 #### [facility] [employer] [address] [place] [address] Hemoglobin (Bld) [Mass/Vol] 14.8 g/dL Normal 12.0-16.0 [facility] Comment on above: Performed By: #### 2 583299 #### [facility] [employer] [address] [place] [address] MCH (RBC) [Entitic mass] 30.7 pg Normal 27.0-31.0 [facility] Comment on above: Performed By: #### 2 976599 #### [facility] [employer] [address] [place] [address] MCHC (RBC) [Mass/Vol] 33.3 g/dL Normal 33.0-37.0 [facility] Comment on above: Performed By: #### 2 973197 #### [facility] [employer] [address] [place] [address] MCV (RBC) [Entitic vol] 92.1 fL Normal 78.0-100.0 [facility] Comment on above: Performed By: #### 2 345453 #### [facility] [employer] [address] [place] [address] Platelet mean volume (Bld) [Entitic vol] 7.8 fL Normal 7.4-11.0 [facility] Comment on above: Performed By: #### 2 810383 #### [facility] [employer] [address] [place] [address] Platelets (Bld) [#/Vol] 93 E3/mcL Low 130-400 [facility] Comment on above: Performed By: #### 2 811089 #### [facility] [employer] [address] [place] [address] RBC (Bld) [#/Vol] 4.82 E6/mcL Normal 3.90-5.40 [facility] Comment on above: Performed By: #### 2 167277 #### [facility] [employer] [address] [place] [address] WBC (Bld) [#/Vol] 4.7 E3/mcL Normal 3.6-11.0 [facility] Comment on above: Performed By: #### 2 844100 #### [facility] [employer] [address] [place] [address] CMPon 10-26-2018 Albumin [Mass/Vol] 4.2 g/dL Normal 3.4-5.0 [facility] Comment on above: Performed By: #### 2 000087 #### [facility] [employer] [address] [place] [address] Albumin/Globulin [Mass ratio] 1.6 {ratio} Normal 1.1-1.9 [facility] Comment on above: Performed By: #### 2 376278 #### [facility] [employer] [address] [place] [address] Alk Phos 66 Int._Unit/L Normal 33-110 [facility] Comment on above: Performed By: #### 2 595699 #### [facility] [employer] [address] [place] [address] ALT [Catalytic activity/Vol] 22 Int._Unit/L Normal 7-45 [facility] Comment on above: Performed By: #### 2 442193 #### [facility] [employer] [address] [place] [address] Anion gap [Moles/Vol] 12 mmol/L Normal 10-20 [facility] Comment on above: Performed By: #### 2 540829 #### [facility] [employer] [address] [place] [address] AST [Catalytic activity/Vol] 33 Int._Unit/L Normal 9-39 [facility] Comment on above: Performed By: #### 2 475267 #### [facility] [employer] [address] [place] [address] Bili Total 0.38 mg/dL Normal 0.00-1.20 [facility] Comment on above: Performed By: #### 2 090171 #### [facility] [employer] [address] [place] [address] Calcium [Mass/Vol] 9.2 mg/dL Normal 8.6-10.3 [facility] Comment on above: Performed By: #### 2 840315 #### [facility]ARRY [employer] [address] [place] [address] Chloride [Moles/Vol] 110 mmol/L High 98-107 [facility] Comment on above: Performed By: #### 2 319201 #### [facility] [employer] [address] [place] [address] CO2 [Moles/Vol] 24.0 mmol/L Normal 21.0-32.0 [facility] Comment on above: Performed By: #### 2 290822 #### [facility]Y [employer] [address] [place] [address] Creatinine [Mass/Vol] 1.5 mg/dL High 0.5-1.1 [facility] Comment on above: Performed By: #### 2 230135 #### [facility]Y [employer]Hemo [address] [place] [address] Globulin (S) [Mass/Vol] 3.0 g/dL Normal 2.0-4.0 [facility] Comment on above: Performed By: #### 2 777884 #### [facility]ARRY [employer] [address] [place] [address] Glucose [Mass/Vol] 97 mg/dL Normal 70-99 [facility] Comment on above: Performed By: #### 2 821330 #### [facility] [employer] [address] [place] [address] Potassium [Moles/Vol] 4.9 mmol/L Normal 3.5-5.3 [facility] Comment on above: Performed By: #### 2 435365 #### [facility] [employer] [address] [place] [address] Protein [Mass/Vol] 6.9 g/dL Normal 6.4-8.2 [facility] Comment on above: Performed By: #### 2 807386 #### [facility] [employer] [address] [place] [address] Sodium [Moles/Vol] 141 mmol/L Normal 136-145 [facility] Comment on above: Performed By: #### 2 909578 #### [facility]Y [employer] [address] [place] [address] Urea nitrogen [Mass/Vol] 17 mg/dL Normal 6-23 [facility] Comment on above: Performed By: #### 2 039639 #### [facility]Y [employer] [address] [place] [address] Urea nitrogen/Creatinine [Mass ratio] 11.3 ratio Normal 5.4-30.0 [facility] Comment on above: Performed By: #### 2 819968 #### BARRY WilcoxHemo [address] [place] [address] Lab Miscellaneouson 10-26-19 19 Test Name topamax Normal [facility] Comment on above: Performed By: #### 2 461267 #### BARRY WilcoxHemo [address] [place] [address] Manual Diffon 10-26-2018 Band form neutrophils/100 WBC (Bld) 1 Normal 0-1 [facility] Comment on above: Order Comment: Order Added by Discern Expert. Performed By: #### 2 324675 #### [facility] [employer] [address] [place] [address] Basophil Man 0 % Normal 0-1 [facility] Comment on above: Order Comment: Order Added by Discern Expert. Performed By: #### 2 555049 #### [facility]Y [employer] [address] [place] [address] Eosinophils/100 WBC (Bld) 3 % Normal 0-5 [facility] Comment on above: Order Comment: Order Added by Discern Expert. Performed By: #### 2 075427 #### [facility] [employer] [address] [place] [address] Lymphocytes/100 WBC (Bld) 37 % Normal 14-48 [facility] Comment on above: Order Comment: Order Added by Discern Expert. Performed By: #### 2 862714 #### [facility] [employer] [address] [place] [address] Monocyte Man 8 % Normal 1-11 [facility] Comment on above: Order Comment: Order Added by Discern Expert. Performed By: #### 2 036259 #### BARRY Wilcox[employer] [address] [place] [id number] RBC morphology finding Nom (Bld) NORMAL Normal [facility] Comment on above: Order Comment: Order Added by Discern Expert. Performed By: #### 2 805201 #### BRARY WilcoxHemo [address] [place] [id number] Segs Man 51 % Normal 37-75 [facility] Comment on above: Order Comment: Order Added by Discern Expert. Performed By: #### 2 [id number] #### BARRY RemHemo [address] [id number] Valproic Acidon 10-26-2018 Valpro Acid Lvl 91 microgram/mL Normal 50-100 [facility] Comment on above: Performed By: #### 2 [id number] #### BARRY WilcoxHemo [address] [id number] eGFRon 10-26-2018 GFR/1.73 sq M predicted among non-blacks MDRD (S/P/Bld) [Vol rate/Area] 45 mL/min/1.73 m2 Normal [facility] Comment on above: Order Comment: Order Added by Discern Expert. Performed By: #### 2 [id number] #### BARRY WilcoxHemo [facility] [place] [address] GFR/1.73 sq M predicted among non-blacks MDRD (S/P/Bld) [Vol rate/Area] 37 mL/min/1.73 m2 Normal [facility] Comment on above: Order Comment: Order Added by Discern Expert. Performed By: #### 2 [id number] #### BARRY WilcoxHemo [facility] [id number] zzplt morphon 10-26-2018 Platelet morphology finding Nom (Bld) NORMAL Normal [facility] Comment on above: Performed By: #### 2 [id number] #### BARRY WilcoxHemo [facility] [id number] Platelets (Bld) [#/Vol] DECREASED Normal [facility] Comment on above: Performed By: #### 2 [id number] #### BARRY RemHemo [address] [id number] UA Completeon 10-14-2018 Color (U) Yellow Normal Yellow [facility] Comment on above: Performed By: #### 2 [id number] #### BARRY WilcoxHemo [address] [place] [address] Glucose (U) [Mass/Vol] Negative Normal Negative [facility] Comment on above: Performed By: #### 2 [id number] #### BARRY WilcoxHemo [address] [place] [address] Ketones Ql (U) Negative Normal Negative [facility] Comment on above: Performed By: #### 2 [id number] #### BARRYShawn WilcoxHemo [address] [place] [address] RBC (U) [#/Vol] 10-20 Abnormal 0-3 [facility] Comment on above: Performed By: #### 2 [id number] #### BARRY WilcoxHemo [address] [place] [address] UA Blood Negative Normal Negative [facility] Comment on above: Performed By: #### 2 [id number] #### BARRY RemHemo [address] [place], [place] [id number] UA Clarity Cloudy Abnormal Clear [facility] Comment on above: Performed By: #### 2 [id number] #### BARRY WilcoxHemo [address] [place] [address] UA Hyal Cast 5-10 Abnormal 0-2 [facility] Comment on above: Performed By: #### 2 640015 #### BARRY WilcoxHemo [address] [place] [address] UA Leuk Est 3+ Abnormal Negative [facility] Comment on above: Performed By: #### 2 312708 #### BARRY RemHemo [address] [place] [address] UA Mucous Trace Abnormal Trace [facility] Comment on above: Performed By: #### 2 [id number] #### BARRY RemHemo [address] [place] [address] UA Nitrite Negative Normal Negative [facility] Comment on above: Performed By: #### 2 844545 #### BARRY JeriHemo [address] [place] [address] UA pH 7.0 Normal 4.6-8.0 [facility] Comment on above: Performed By: #### 2 877349 #### BARRY RemHemo [address] [place] [address] UA Protein Negative Normal Negative [facility] Comment on above: Performed By: #### 2 337653 #### BARRY WilcoxHemo [address] [id number] UA Spec Grav 1.016 Normal 1.003-1.030 [facility] Comment on above: Performed By: #### 2 070236 #### BARRY RemHemo [address] [place] [address] UA Squam Epithelial >30 Abnormal 0-5 [facility] Comment on above: Performed By: #### 2 909669 #### BARRY WilcoxHemo [address] [place] [address] UA Urobilinogen Negative Normal [facility] Comment on above: Result Comment: Due to a manufacturing issue, low positive urobilinogen results may be fasely positive. Correlate with urine bilirubin and additional clinical/laboratory findings to assess the risk of hemolytic anemia or liver disease. If clinically indicated, repeat testing with an alternate method is available by contacting the laboratory within 24 hours. Performed By: #### 2 [id number] #### BARRY WilcoxHemo [facility] [id number] UA WBC 10-20 Abnormal 0-5 [facility] Comment on above: Performed By: #### 2 641507 #### BARRY WilcoxHemo [facility] [place] [address] Urobilinogen Qn (U) Negative Normal Negative [facility] Comment on above: Performed By: #### 2 [id number] #### BARRY RemHemo [facility] [id number] XR Spine Lumbosacral 2 or 3 Viewson 10-14-2018 XR Spine Lumbosacral 2 or 3 Views Exam Date/Time: 10/14/2018 15:28 EST Reason for Exam: Back pain Report STUDY: XR Spine Lumbosacral 2 or 3 Views; 10/14/2018 3:28 pm INDICATION: Back pain. COMPARISON: 01/21/2017 ACCESSION NUMBER(S): [id number] ORDERING CLINICIAN: Moi De La Cruz FINDINGS: [...] pm Signed by: Bhupinder Bridges MD Technologist: [facility] .Manual Abson 10-02-2018 Basophil Abs Man 0.0 10x3/ Normal 0.0-0.2 [facility] Comment on above: Order Comment: Order Added by Discern Expert. Performed By: #### 9 [id number] #### BARRY WilcoxHemo [address] [place] [address] Eos Abs Man 0.1 10x3/ Normal 0.0-0.5 [facility] Comment on above: Order Comment: Order Added by Katya Expert. Performed By: #### 9 [id number] #### BARRY WilcoxHemo [address] [place] [address] Lymph Abs Man 2.0 10x3/ Normal 1.2-3.4 [facility] Comment on above: Order Comment: Order Added by Katya Expert. Performed By: #### 9 [id number] #### BARRY WilcoxHemo [address] [place] [address] [place] Abs Man 0.5 10x3/ Normal 0.0-0.7 [facility] Comment on above: Order Comment: Order Added by Katya Expert. Performed By: #### 9 [id number] #### BARRY WilcoxHemo [address] [place] [address] Segs Abs Man 2.3 10x3/ Normal 1.4-6.5 [facility] Comment on above: Order Comment: Order Added by Katya Expert. Performed By: #### 9 [id number] #### BARRY WilcoxHemo [address] [place] [address] BMPon 10-02-2018 Anion gap [Moles/Vol] 9 mmol/L Low 10-20 [facility] Comment on above: Performed By: #### 9 [id number] #### BARRY WilcoxHemo [address] [place] [address] Calcium [Mass/Vol] 8.4 mg/dL Low 8.6-10.3 [facility] Comment on above: Performed By: #### 9 [id number] #### BARRY WilcoxHemo [address] [place] [address] Chloride [Moles/Vol] 111 mmol/L High 98-107 [facility] Comment on above: Performed By: #### 9 [id number] #### BARRY WilcoxHemo [address] [place] [address] CO2 [Moles/Vol] 22.0 mmol/L Normal 21.0-32.0 [facility] Comment on above: Performed By: #### 9 [id number] #### BARRY WilcoxHemo [address] [place] [address] Creatinine [Mass/Vol] 1.3 mg/dL High 0.5-1.1 [facility] Comment on above: Performed By: #### 9 [id number] #### BARYR WilcoxHemo [address] [place] [address] Glucose [Mass/Vol] 88 mg/dL Normal 70-99 [facility] Comment on above: Performed By: #### 9 6426152 #### BARRY WilcoxHemo [address] [place] [address] Potassium [Moles/Vol] 4.2 mmol/L Normal 3.5-5.3 [facility] Comment on above: Performed By: #### 9 [id number] #### BARRY RemHemo [address] [place] [address] Sodium [Moles/Vol] 138 mmol/L Normal 136-145 [facility] Comment on above: Performed By: #### 9 [id number] #### BARRY RemHemo [address] [place] [address] Urea nitrogen [Mass/Vol] 16 mg/dL Normal 6-23 [facility] Comment on above: Performed By: #### 9 7138875 #### BARRY WilcoxHemo [address] [place] [address] Urea nitrogen/Creatinine [Mass ratio] 12.3 ratio Normal 5.4-30.0 [facility] Comment on above: Performed By: #### 9 [id number] #### BARRY Kenyono [facility]5 [place] [address] CBC w/ Auto Diffon 8 Erythrocyte distribution width (RBC) [Ratio] 13.1 % Normal 11.5-14.5 [facility] Comment on above: Performed By: #### 9 [id number] #### BARRY WilcoxHemo [address] [place], [place] [address] Hematocrit (Bld) [Volume fraction] 40.9 % Normal 36.0-48.0 [facility] Comment on above: Performed By: #### 9 [id number] #### BARRY WilcoxHemo [address] [place], [place] [address] Hemoglobin (Bld) [Mass/Vol] 13.7 g/dL Normal 12.0-16.0 [facility] Comment on above: Performed By: #### 9 [id number] #### BARRY WilcoxHemo [address] [place], [place] [address] MCH (RBC) [Entitic mass] 31.0 pg Normal 27.0-31.0 [facility] Comment on above: Performed By: #### 9 [id number] #### BARRY WilcoxHemo [address] [place], [place] [address] MCHC (RBC) [Mass/Vol] 33.7 g/dL Normal 33.0-37.0 [facility] Comment on above: Performed By: #### 9 6886019 #### BARRY WilcoxHemo [address] [place] [address] MCV (RBC) [Entitic vol] 92.1 fL Normal 78.0-100.0 [facility] Comment on above: Performed By: #### 9 [id number] #### BARRY WilcoxHemo [address] [place] [address] Platelet mean volume (Bld) [Entitic vol] 8.4 fL Normal 7.4-11.0 [facility] Comment on above: Performed By: #### 9 [id number] #### BARRY Kenyono [facility] [id number] Platelets (Bld) [#/Vol] 82 E3/mcL Low 130-400 [facility] Comment on above: Performed By: #### 9 [id number] #### BARRY Kenyoncorky [facility] [id number] RBC (Bld) [#/Vol] 4.44 E6/mcL Normal 3.90-5.40 [facility] Comment on above: Performed By: #### 9 3142382 #### BARRY Kenyono [facility] [id number] WBC (Bld) [#/Vol] 5.3 E3/mcL Normal 3.6-11.0 [facility] Comment on above: Performed By: #### 9 [id number] #### BARRY Kenyoncorky [address] [place] [address] Magnesiumon 10-02-2018 Magnesium [Mass/Vol] 1.9 mg/dL Normal 1.6-2.4 [facility] Comment on above: Performed By: #### 9 5347638 #### BARRY Kenyono [address] [place], [place] [address] Manual Diffon 10-02-2018 Anisocytosis Ql (Bld) 2+ Normal [facility] Comment on above: Order Comment: Order Added by Discern Expert. Performed By: #### 9 [id number] #### BARRY WilcoxHemo [facility] [id number] Band form neutrophils/100 WBC (Bld) 6 High 0-1 [facility] Comment on above: Order Comment: Order Added by Discern Expert. Performed By: #### 9 [id number] #### BARRY WilcoxHemo [facility] [id number] Basophil Man 0 % Normal 0-1 [facility] Comment on above: Order Comment: Order Added by Discern Expert. Performed By: #### 9 [id number] #### BARRY JeriHemo [address] [phone] Eosinophils/100 WBC (Bld) 1 % Normal 0-5 [facility] Comment on above: Order Comment: Order Added by Discern Expert. Performed By: #### 9 [id number] #### BARRY Kenyono [address] [phone] Lymphocytes/100 WBC (Bld) 37 % Normal 14-48 [facility] Comment on above: Order Comment: Order Added by Discern Expert. Performed By: #### 9 [id number] #### BARRY WilcoxHemo [address] [id number] Sharon Man 3 % High 0-0 [facility] Comment on above: Order Comment: Order Added by Discern Expert. Performed By: #### 9 [id number] #### BARRY WilcoxHemo [facility] [place] [address] Monocyte Man 10 % Normal 1-11 [facility] Comment on above: Order Comment: Order Added by Discern Expert. Performed By: #### 9 [id number] #### BARRY WilcoxHemo [facility]5 [place] [address] Poikilocytosis 1+ Normal [facility] Comment on above: Order Comment: Order Added by Discern Expert. Performed By: #### 9 [id number] #### BARRY WilcoxHemo [address] [place] [address] Polychromasia 1+ Normal [facility] Comment on above: Order Comment: Order Added by Discern Expert. Performed By: #### 9 [id number] #### BRARY WilcoxHemo [address] [id number] RBC morphology finding Nom (Bld) SEE MORPHOLOGY Normal [facility] Comment on above: Order Comment: Order Added by Discern Expert. Performed By: #### 9 [id number] #### BARRY WilcoxHemo [address] [id number] Segs Man 43 % Normal 37-75 [facility] Comment on above: Order Comment: Order Added by Discern Expert. Performed By: #### 9 [id number] #### BARRY JeriHemo [address] [id number] PTon 10-02-2018 INR Coag (PPP) [Relative time] 1.1 {INR} Normal 1.0-1.2 [facility] Comment on above: Result Comment: INR Recommended Therapeuptic Ranges: Prophylaxis/treatment of DVT and PE?2.0-3.0 Prevention of systemic embolism?.2.0-3.0 Mechanical prosthetic values?2.5-3.5 CRITICAL VALUES?.>4.0 Performed By: #### 9 [id number] #### BARRY Kenyoncorky [address] [place], [place] [address] PT Coag (PPP) [Time] 13.2 second(s) Normal 11.6-14.6 [facility] Comment on above: Performed By: #### 9 [id number] #### [address] [id number] PTTon 10-02-2018 aPTT Coag (Bld) [Time] 28.3 second(s) Normal 23.2-36.4 [facility] Comment on above: Performed By: #### 9 [id number] #### BARRY Kenyoncorky [address] [place], [place] [address] PTT Control Ratioon 10-02-20 18 PTT Ratio 0.9 ratio Normal 0.8-1.2 [facility] Comment on above: Order Comment: Order added by Discern Expert. Performed By: #### 9 [id number] #### BARRY Kenyoncorky [address] [place], [place] [address] Troponin-Ion 10-02-2018 Troponin I.cardiac [Mass/Vol] ng/mL Normal .00-.03 [facility] Comment on above: Performed By: #### 2 [id number] #### BARRY Kenyoncorky [address] [place], [place] [address] Troponin I.cardiac [Mass/Vol] 0.01 ng/mL Normal .00-.03 [facility] Comment on above: Performed By: #### 9 [id number] #### BARRY Kenyoncorky [address] [place] [address] XR Chest AP Portableon 10-02 XR Chest AP Portable Exam Date/Time: 10/02/2018 11:20 EST Reason for Exam: Chest pain Report STUDY: XR Chest AP Portable; 10/02/2018 11:20 am INDICATION: Chest pain. COMPARISON: 12/15/2017 ACCESSION NUMBER(S): [id number] ORDERING CLINICIAN: Moi De La Cruz FINDINGS: [...] Signed by: Wilder Beth MD Technologist: [facility] eGFRon 10-02-2018 GFR/1.73 sq M predicted among non-blacks MDRD (S/P/Bld) [Vol rate/Area] 53 mL/min/1.73 m2 [facility] Comment on above: Order Comment: Order added by Discern Expert. Performed By: #### 9 [id number] #### BARRY JeriHemo [address] [place] [address] GFR/1.73 sq M predicted among non-blacks MDRD (S/P/Bld) [Vol rate/Area] 44 mL/min/1.73 m2 [facility] Comment on above: Order Comment: Order added by Discern Expert. Performed By: #### 9 [id number] #### BARRY RemHemo [address] [place] [address] C Urineon 09-24-2018 C Urine Final Report: Modera te Normal skin joe isolated [facility] Comment on above: Performed By: #### 1 [id number] #### BARRY RemHemo [address] [place] [address] Auto Diffon 09-22-2018 Basophils (Bld) [#/Vol] 0.0 E3/mcL Normal 0.0-0.2 [facility] Comment on above: Order Comment: Order Added by Discern Expert. Performed By: #### 1 [id number] #### BARRY RemHemo [address] [place] [address] Basophils/100 WBC (Bld) 0.4 % Normal 0.0-2.0 [facility] Comment on above: Order Comment: Order Added by Discern Expert. Performed By: #### 1 [id number] #### BARRY RemHemo [address] [place] [address] Eos Absolute 0.1 E3/mcL Normal 0.0-0.7 [facility] Comment on above: Order Comment: Order Added by Discern Expert. Performed By: #### 1 [id number] #### BARRY RemHemo [address] [place] [address] Eosinophils/100 WBC (Bld) 1.6 % Normal 0.0-11.0 [facility] Comment on above: Order Comment: Order Added by Discern Expert. Performed By: #### 1 [id number] #### BARRY RemHemo [address] [place] [address] Lymphocytes (Bld) [#/Vol] 2.0 E3/mcL Normal 1.2-3.4 [facility] Comment on above: Order Comment: Order Added by Katya Expert. Performed By: #### 1 [id number] #### BARRY RemHemo [address] [place] [address] Lymphocytes/100 WBC (Bld) 30.2 % Normal 20.0-55.0 [facility] Comment on above: Order Comment: Order Added by Discern Expert. Performed By: #### 1 [id number] #### BARRY RemHemo [address] [place] [address] [place] Absolute 0.6 E3/mcL Normal 0.0-0.7 [facility] Comment on above: Order Comment: Order Added by Katya Expert. Performed By: #### 1 [id number] #### BARRY RemHemo [address] [place] [address] Monocytes/100 WBC (Bld) 9.0 % Normal 0.0-10.0 [facility] Comment on above: Order Comment: Order Added by Discern Expert. Performed By: #### 1 [id number] #### BARRY WilcoxHemo [address] [place] [address] Neutro Absolute 3.9 E3/mcL Normal 1.4-6.5 [facility] Comment on above: Order Comment: Order Added by Discern Expert. Performed By: #### 1 [id number] #### BARRY WilcoxHemo [address] [place] [address] Neutro Auto 58.8 % Normal 37.0-75.0 [facility] Comment on above: Order Comment: Order Added by Discern Expert. Performed By: #### 1 [id number] #### BARRY WilcoxHemo [address] [place] [address] BMPon 09-22-2018 Anion gap [Moles/Vol] 12 mmol/L Normal 10-20 [facility] Comment on above: Performed By: #### 1 [id number] #### BARRY WilcoxHemo [address] [place] [address] Calcium [Mass/Vol] 9.4 mg/dL Normal 8.6-10.3 [facility] Comment on above: Performed By: #### 1 [id number] #### BARRY WilcoxHemo [address] [place] [address] Chloride [Moles/Vol] 110 mmol/L High 98-107 [facility] Comment on above: Performed By: #### 1 [id number] #### BARRY WilcoxHemo [address] [place] [address] CO2 [Moles/Vol] 22.0 mmol/L Normal 21.0-32.0 [facility] Comment on above: Performed By: #### 1 [id number] #### BARRY RemHemo [address] [place] [address] Creatinine [Mass/Vol] 1.4 mg/dL High 0.5-1.1 [facility] Comment on above: Performed By: #### 1 [id number] #### BARRY RemHemo [address] [place] [address] Glucose [Mass/Vol] 93 mg/dL Normal 70-99 [facility] Comment on above: Performed By: #### 1 [id number] #### BARRY WilcoxHemo [address] [place] [address] Potassium [Moles/Vol] 4.7 mmol/L Normal 3.5-5.3 [facility] Comment on above: Performed By: #### 1 3929748 #### BARRY WilcoxHemo [address] [place] [address] Sodium [Moles/Vol] 139 mmol/L Normal 136-145 [facility] Comment on above: Performed By: #### 1 [id number] #### BARRY WilcoxHemo [address] [place] [address] Urea nitrogen [Mass/Vol] 15 mg/dL Normal 6-23 [facility] Comment on above: Performed By: #### 1 [id number] #### BARRY WilcoxHemo [address] [place] [address] Urea nitrogen/Creatinine [Mass ratio] 10.7 ratio Normal 5.4-30.0 [facility] Comment on above: Performed By: #### 1 [id number] #### BARRY WilcoxHemo [address] [place] [address] CBC w/ Auto Diffon 8 Erythrocyte distribution width (RBC) [Ratio] 13.6 % Normal 11.5-14.5 [facility] Comment on above: Performed By: #### 2 [id number] #### BARRY WilcoxHemo [address] [place] [address] Hematocrit (Bld) [Volume fraction] 50.0 % High 36.0-48.0 [facility] Comment on above: Performed By: #### 2 934457 #### BARRY WilcoxHemo [address] [place] [address] Hemoglobin (Bld) [Mass/Vol] 16.9 g/dL High 12.0-16.0 [facility] Comment on above: Performed By: #### 2 149016 #### BARRY RemHemo [address] [place] [address] MCH (RBC) [Entitic mass] 31.0 pg Normal 27.0-31.0 [facility] Comment on above: Performed By: #### 2 [id number] #### BARRY RemHemo [address] [place] [address] MCHC (RBC) [Mass/Vol] 33.8 g/dL Normal 33.0-37.0 [facility] Comment on above: Performed By: #### 2 [id number] #### BARRY RemHemo [address] [place] [address] MCV (RBC) [Entitic vol] 91.7 fL Normal 78.0-100.0 [facility] Comment on above: Performed By: #### 2 295117 #### BARRY RemHemo [address] [place] [address] Platelet mean volume (Bld) [Entitic vol] 8.1 fL Normal 7.4-11.0 [facility] Comment on above: Performed By: #### 2 [id number] #### BARRY RemHemo [address] [place] [address] Platelets (Bld) [#/Vol] 123 E3/mcL Low 130-400 [facility] Comment on above: Performed By: #### 2 [id number] #### BARRY RemHemo [address] [place] [address] RBC (Bld) [#/Vol] 5.45 E6/mcL High 3.90-5.40 [facility] Comment on above: Performed By: #### 2 690761 #### BARRY RemHemo [address] [place] [address] WBC (Bld) [#/Vol] 6.6 E3/mcL Normal 3.6-11.0 [facility] Comment on above: Performed By: #### 2 [id number] #### BARRY RemHemo [address] [place] [address] CT Abdomen/Pelvis w/o Contra ston 09-22-2018 CT Abdomen/Pelvis w/o Contrast Exam Date/Time: 09/22/2018 18:11 EST Reason for Exam: Abdominal Pain;Other (please specify) Report STUDY: CT Abdomen/Pelvis w/o Contrast; 09/22/2018 6:11 pm INDICATION: Other (please specify). COMPARISON: CT dated 05/19/2018 ACCESSION NUMBER(S): [id number] ORDERING CLINICIAN: Shilpa Douglas TECHNIQUE: CT of [...] Signed by: Devin Zimmer MD Technologist: AM, Eliane [facility] Hep Func Panelon 09-22-2018 Albumin [Mass/Vol] 4.7 g/dL Normal 3.4-5.0 [facility] Comment on above: Performed By: #### 1 [id number] #### BARRY RemHemo [address] [place] [address] Albumin/Globulin [Mass ratio] 1.7 {ratio} Normal 1.1-1.9 [facility] Comment on above: Performed By: #### 1 [id number] #### BARRY RemHemo [address] [place] [address] Alk Phos 67 Int._Unit/L Normal 33-110 [facility] Comment on above: Performed By: #### 1 [id number] #### BARRY Luong [address] [place] [address] ALT [Catalytic activity/Vol] 19 Int._Unit/L Normal 7-45 [facility] Comment on above: Performed By: #### 1 [id number] #### BARRYShawn Kenyon[address] [address] AST [Catalytic activity/Vol] 31 Int._Unit/L Normal 9-39 [facility] Comment on above: Performed By: #### 1 [id number] #### BARRY Luong [address] [place] [address] Bili Direct 0.12 mg/dL Normal 0.00-0.30 [facility] Comment on above: Performed By: #### 1 [id number] #### BARRYShawn Kenyon[address] [address] Bili Indirect 0.53 mg/dL Normal [facility] Comment on above: Result Comment: No e stablished ranges available for the indirect bilirubin Performed By: #### 1 [id number] #### [place] [id number] Bili Total 0.65 mg/dL Normal 0.00-1.20 [facility] Comment on above: Performed By: #### 1 [id number] #### BARRYShawn Kenyon[address] [address] Globulin (S) [Mass/Vol] 3.0 g/dL Normal 2.0-4.0 [facility] Comment on above: Performed By: #### 1 [id number] #### BARRYShawn Kenyon[address] [address] Protein [Mass/Vol] 7.4 g/dL Normal 6.4-8.2 [facility] Comment on above: Performed By: #### 1 [id number] #### BARRYShawn Kenyon[address] [address] Lipase Levelon 09-22-2018 Lipase Lvl 44 Int._Unit/L Normal 9-82 [facility] Comment on above: Performed By: #### 1 [id number] #### BARRYShawn Kenyono [address] [place] [address] U BhCG Qlton 09-22-2018 HCG.beta subunit Qn Negative Normal Neg [facility] Comment on above: Performed By: #### 1 [id number] #### BARRY WilcoxHemo [address] [place] [address] UA Completeon 09-22-2018 Color (U) Yellow Normal Yellow [facility] Comment on above: Performed By: #### 1 [id number] #### BARRY WilcoxHemo [address] [place] [address] Glucose (U) [Mass/Vol] Negative Normal Negative [facility] Comment on above: Performed By: #### 1 [id number] #### BARRY RemHemo [address] [place] [address] Ketones Ql (U) Negative Normal Negative [facility] Comment on above: Performed By: #### 1 [id number] #### BARRY WilcoxHemo [address] [place] [address] RBC (U) [#/Vol] 20-50 Abnormal 0-3 [facility] Comment on above: Performed By: #### 1 [id number] #### BARRY RemHemo [address] [place] [address] UA Blood Negative Normal Negative [facility] Comment on above: Performed By: #### 1 [id number] #### BARRY RemHemo [address] [place] [address] UA Bacteria 2+ /HPF Abnormal None [facility] Comment on above: Performed By: #### 1 [id number] #### BARRY RemHemo [address] [place] [address] UA Clarity Cloudy Abnormal Clear [facility] Comment on above: Performed By: #### 1 [id number] #### BARRY RemHemo [address] [place] [address] UA Leuk Est 3+ Abnormal Negative [facility] Comment on above: Performed By: #### 1 [id number] #### BARRY RemHemo [address] [place] [address] UA Mucous Trace Abnormal Trace [facility] Comment on above: Performed By: #### 1 [id number] #### BARRY RemHemo [address] [place] [address] UA Nitrite Negative Normal Negative [facility] Comment on above: Performed By: #### 1 [id number] #### BARRY WilcoxHemo [address] [place] [address] UA pH 7.0 Normal 4.6-8.0 [facility] Comment on above: Performed By: #### 1 [id number] #### BARRYShawn WilcoxHemo [address] [place] [address] UA Protein Negative Normal Negative [facility] Comment on above: Performed By: #### 1 [id number] #### BARRY WilcoxHemo [address] [place] [address] UA Spec Grav 1.014 Normal 1.003-1.030 [facility] Comment on above: Performed By: #### 1 [id number] #### BARRY Kenyono [address] [place] [address] UA Squam Epithelial >30 Abnormal 0-5 [facility] Comment on above: Performed By: #### 1 [id number] #### BARRY WilcoxHemo [address] [place] [address]686 UA Urobilinogen Negative Normal [facility] Comment on above: Result Comment: Due to a manufacturing issue, low positive urobilinogen results may be fasely positive. Correlate with urine bilirubin and additional clinical/laboratory findings to assess the risk of hemolytic anemia or liver disease. If clinically indicated, repeat testing with an alternate method is available by contacting the laboratory within 24 hours. Performed By: #### 1 [id number] #### BARRY WilcoxHemo [address] [place] [address] UA WBC 20-50 Abnormal 0-5 [facility] Comment on above: Performed By: #### 1 [id number] #### BARRYShawn WilcoxHemo [address] [place] [address] Urobilinogen Qn (U) Negative Normal Negative [facility] Comment on above: Performed By: #### 1 [id number] #### BARRYShawn Kenyono [address] [place] [address] eGFRon 09-22-2018 GFR/1.73 sq M predicted among non-blacks MDRD (S/P/Bld) [Vol rate/Area] 51 mL/min/1.73 m2 Normal [facility] Comment on above: Order Comment: Order Added by Discern Expert. Performed By: #### 1 [id number] #### BARRY RemHemo [address] [place] [address] GFR/1.73 sq M predicted among non-blacks MDRD (S/P/Bld) [Vol rate/Area] 42 mL/min/1.73 m2 Normal [facility] Comment on above: Order Comment: Order Added by Discern Expert. Performed By: #### 1 [id number] #### BARRY RemHemo [address] [place] [address] C Urineon 08-16-2018 C Urine Final Report: Few Mi xed skin contaminants Normal [facility] Comment on above: Performed By: #### 2 [id number] #### BARRY Microbiology Subsection [facility]5 [place] [address] UA Completeon 08-15-2018 Color (U) Yellow Normal Yellow [facility] Comment on above: Order Comment: Strai ght Cath as needed Performed By: #### 8 [id number] #### BARRY Urinalysis Automated Subsection [address] [place] [address] Glucose (U) [Mass/Vol] 1+ Abnormal Negative [facility] Comment on above: Order Comment: Strai ght Cath as needed Performed By: #### 8 [id number] #### BARRY Urinalysis Automated Subsection [address] [place] [address] Ketones Ql (U) Negative Normal Negative [facility] Comment on above: Order Comment: Strai ght Cath as needed Performed By: #### 8 [id number] #### BARRY Urinalysis Automated Subsection [address] [place] [address] RBC (U) [#/Vol] 0-3 Normal 0-3 [facility] Comment on above: Order Comment: Strai ght Cath as needed Performed By: #### 8 [id number] #### BARRY Urinalysis Automated Subsection [address] [place] [address] UA Blood Negative Normal Negative [facility] Comment on above: Order Comment: Strai ght Cath as needed Performed By: #### 8 [id number] #### BARRY Urinalysis Automated Subsection [facility] [place] [address] UA Bacteria Trace Abnormal None [facility] Comment on above: Order Comment: Strai ght Cath as needed Performed By: #### 8 [id number] #### BARRY Urinalysis Automated Subsection [facility] [place] [address] UA Clarity SltCloudy Abnormal Clear [facility] Comment on above: Order Comment: Strai ght Cath as needed Performed By: #### 8 [id number] #### BARRY Urinalysis Automated Subsection [facility] [place] [address] UA Hyal Cast 0-2 Normal 0-2 [facility] Comment on above: Order Comment: Strai ght Cath as needed Performed By: #### 8 [id number] #### BARRY Urinalysis Automated Subsection [address] [place] [address] UA Leuk Est 1+ Abnormal Negative [facility] Comment on above: Order Comment: Strai ght Cath as needed Performed By: #### 8 [id number] #### BARRY Urinalysis Automated Subsection [address] [place] [address] UA Mucous Trace Abnormal Trace [facility] Comment on above: Order Comment: Strai ght Cath as needed Performed By: #### 8 [id number] #### BARRY Urinalysis Automated Subsection [address] [place] [address] UA Nitrite Negative Normal Negative [facility] Comment on above: Order Comment: Strai ght Cath as needed Performed By: #### 8 [id number] #### BARRY Urinalysis Automated Subsection [address] [place] [address] UA pH 7.0 Normal 4.6-8.0 [facility] Comment on above: Order Comment: Strai ght Cath as needed Performed By: #### 8 [id number] #### BARRY Urinalysis Automated Subsection [address] [place] [address] UA Protein Negative Normal Negative [facility] Comment on above: Order Comment: Strai ght Cath as needed Performed By: #### 8 [id number] #### BARRY Urinalysis Automated Subsection [address] [place] [address] UA Spec Grav 1.012 Normal 1.003-1.030 [facility] Comment on above: Order Comment: Strai ght Cath as needed Performed By: #### 8 [id number] #### BARRY Urinalysis Automated Subsection [address] [place] [address] UA Squam Epithelial 5-10 Abnormal 0-5 [facility] Comment on above: Order Comment: Strai ght Cath as needed Performed By: #### 8 [id number] #### BARRY Urinalysis Automated Subsection [address] [place] [address] UA Urobilinogen Negative Normal [facility] Comment on above: Order Comment: Strai ght Cath as needed Performed By: #### 8 [id number] #### BARRY Urinalysis Automated Subsection [address] [place] [address] UA WBC 10-20 Abnormal 0-5 [facility] Comment on above: Order Comment: Strai ght Cath as needed Performed By: #### 8 [id number] #### BARRY Urinalysis Automated Subsection [address] [place] [address] Urobilinogen Qn (U) Negative Normal Negative [facility] Comment on above: Order Comment: Strai ght Cath as needed Performed By: #### 8 [id number] #### BARRY Urinalysis Automated Subsection [address] [place] [address] Auto Diffon 08-14-2018 Basophils (Bld) [#/Vol] 0.0 E3/mcL Normal 0.0-0.2 [facility] Comment on above: Order Comment: Order Added by Discern Expert. Performed By: #### 2 [id number] #### BARRY RemHemo [address] [place] [address] Basophils/100 WBC (Bld) 0.7 % Normal 0.0-2.0 [facility] Comment on above: Order Comment: Order Added by Discern Expert. Performed By: #### 2 [id number] #### BARRY RemHemo [address] [place], [place] [id number] Eos Absolute 0.1 E3/mcL Normal 0.0-0.7 [facility] Comment on above: Order Comment: Order Added by Discern Expert. Performed By: #### 2 [id number] #### BARRY WilcoxHemo [address] [place] [address] Eosinophils/100 WBC (Bld) 2.2 % Normal 0.0-11.0 [facility] Comment on above: Order Comment: Order Added by Discern Expert. Performed By: #### 2 [id number] #### BARRY WilcoxHemo [address] [place] [address] Lymphocytes (Bld) [#/Vol] 1.4 E3/mcL Normal 1.2-3.4 [facility] Comment on above: Order Comment: Order Added by Discern Expert. Performed By: #### 2 [id number] #### BARRY WilcoxHemo [address] [place] [address] Lymphocytes/100 WBC (Bld) 32.5 % Normal 20.0-55.0 [facility] Comment on above: Order Comment: Order Added by Discern Expert. Performed By: #### 2 [id number] #### BARRY RemHemo [address] [place] [address] [place] Absolute 0.4 E3/mcL Normal 0.0-0.7 [facility] Comment on above: Order Comment: Order Added by Discern Expert. Performed By: #### 2 [id number] #### BARRY WilcoxHemo [address] [place] [address] Monocytes/100 WBC (Bld) 9.7 % Normal 0.0-10.0 [facility] Comment on above: Order Comment: Order Added by Discern Expert. Performed By: #### 2 [id number] #### BARRY RemHemo [address] [place] [address] Neutro Absolute 2.3 E3/mcL Normal 1.4-6.5 [facility] Comment on above: Order Comment: Order Added by Discern Expert. Performed By: #### 2 [id number] #### BARRY RemHemo [address] [place] [address] Neutro Auto 54.9 % Normal 37.0-75.0 [facility] Comment on above: Order Comment: Order Added by Discern Expert. Performed By: #### 2 [id number] #### BARRY RemHemo [address] [place] [address] BMPon 08-14-2018 Anion gap [Moles/Vol] 13 mmol/L Normal 10-20 [facility] Comment on above: Performed By: #### 2 [id number] #### BARRY RemChem [address] [place] [address] Calcium [Mass/Vol] 8.3 mg/dL Low 8.6-10.3 [facility] Comment on above: Performed By: #### 2 [id number] #### BARRY RemChem [address] [place] [address] Chloride [Moles/Vol] 110 mmol/L High 98-107 [facility] Comment on above: Performed By: #### 2 [id number] #### BARRY RemChem [address] [place] [address] CO2 [Moles/Vol] 21.0 mmol/L Normal 21.0-32.0 [facility] Comment on above: Performed By: #### 2 [id number] #### BARRY RemChem [address] [place] [address] Creatinine [Mass/Vol] 1.3 mg/dL Normal 0.6-1.3 [facility] Comment on above: Performed By: #### 2 [id number] #### BARRY RemChem [address] [place] [address] Glucose [Mass/Vol] 122 mg/dL High 70-99 [facility] Comment on above: Performed By: #### 2 [id number] #### BARRY RemChem [address] [place] [address] Potassium [Moles/Vol] 3.3 mmol/L Low 3.5-5.3 [facility] Comment on above: Performed By: #### 2 [id number] #### BARRY RemChem [address] [place] [address] Sodium [Moles/Vol] 141 mmol/L Normal 136-145 [facility] Comment on above: Performed By: #### 2 [id number] #### BARRY RemChem [address] [place] [address] Urea nitrogen [Mass/Vol] 13 mg/dL Normal 6-23 [facility] Comment on above: Performed By: #### 2 [id number] #### BARRY RemChem [address] [place] [address] Urea nitrogen/Creatinine [Mass ratio] 10.0 ratio Normal 5.4-30.0 [facility] Comment on above: Performed By: #### 2 [id number] #### BARRY RemChem [address] [place] [address] CBC w/ Auto Diffon 8 Erythrocyte distribution width (RBC) [Ratio] 13.2 % Normal 11.5-14.5 [facility] Comment on above: Performed By: #### 2 [id number] #### BARRY RemHemo [facility]5 [place] [address] Hematocrit (Bld) [Volume fraction] 42.1 % Normal 36.0-48.0 [facility] Comment on above: Performed By: #### 2 [id number] #### BARRY WilcoxHemo [address] [place] [address] Hemoglobin (Bld) [Mass/Vol] 14.1 g/dL Normal 12.0-16.0 [facility] Comment on above: Performed By: #### 2 [id number] #### BARRY RemHemo [address] [place] [address] MCH (RBC) [Entitic mass] 30.8 pg Normal 27.0-31.0 [facility] Comment on above: Performed By: #### 2 [id number] #### BARRY RemHemo [address] [place] [address] MCHC (RBC) [Mass/Vol] 33.5 g/dL Normal 33.0-37.0 [facility] Comment on above: Performed By: #### 2 [id number] #### BARRY RemHemo [address] [place] [address] MCV (RBC) [Entitic vol] 91.7 fL Normal 78.0-100.0 [facility] Comment on above: Performed By: #### 2 [id number] #### BARRY RemHemo [address] [place] [address] Platelet mean volume (Bld) [Entitic vol] 8.8 fL Normal 7.4-11.0 [facility] Comment on above: Performed By: #### 2 947415 #### BARRY RemHemo [address] [place] [address] Platelets (Bld) [#/Vol] 78 E3/mcL Low 130-400 [facility] Comment on above: Performed By: #### 2 [id number] #### BARRY RemHemo [address] [place] [address] RBC (Bld) [#/Vol] 4.60 E6/mcL Normal 3.90-5.40 [facility] Comment on above: Performed By: #### 2 [id number] #### BARRY RemHemo [address] [place] [address] WBC (Bld) [#/Vol] 4.2 E3/mcL Normal 3.6-11.0 [facility] Comment on above: Performed By: #### 2 [id number] #### BARRY WilcoxHemo [address] [place] [address] Morphon 08-14-2018 Anisocytosis Ql (Bld) 1+ Normal [facility] Comment on above: Order Comment: Order Added by Discern Expert. Performed By: #### 1 [id number] #### BARRY WilcoxHemo [address] [place] [address] RBC morphology finding Nom (Bld) SEE MORPHOLOGY Normal [facility] Comment on above: Order Comment: Order Added by Discern Expert. Performed By: #### 1 [id number] #### BARRY WilcoxHemo [address] [place] [address] TSHon 08-14-2018 TSH Qn 2.16 mcIU/mL Normal 0.30-5.60 [facility] Comment on above: Order Comment: With T4fr Reflex Performed By: #### 2 [id number] #### BARRY [employer] [address] [place] [address] eGFRon 08-14-2018 GFR/1.73 sq M predicted among non-blacks MDRD (S/P/Bld) [Vol rate/Area] 53 mL/min/1.73 m2 Normal [facility] Comment on above: Order Comment: Order added by Discern Expert. Performed By: #### 1 [id number] #### BARRY [employer] [address] [place] [address] GFR/1.73 sq M predicted among non-blacks MDRD (S/P/Bld) [Vol rate/Area] 44 mL/min/1.73 m2 Normal [facility] Comment on above: Order Comment: Order added by Discern Expert. Performed By: #### 1 [id number] #### BARRY RemChem [address] [place] [address] zzplt morphon 08-14-2018 Platelet morphology finding Nom (Bld) NORMAL Normal [facility] Comment on above: Performed By: #### 9 [id number] #### BARRY RemHemo [address] [place] [address] Platelets (Bld) [#/Vol] DECREASED Normal [facility] Comment on above: Performed By: #### 9 [id number] #### BARRY RemHemo [address] [place] [address] Culture, Urineon 06-16-2018 Culture, Urine Test Name: Culture, Urine Culture Status: Final Culture Report: No significant growth. Micro Source: Urine - clean catch Normal [facility] [place] Comment on above: Performed By: #### G LUX #### Unless otherwise noted, all testing performed by [facility] [place] [id number] CLIA: [id number] Line Driver: Ismael Torre M.D. POC Urinalysis Dipstickon Bilirubin Ql (U) Negative Invalid Interpretation Code Negative [facility] Glucose Ql (U) Negative Invalid Interpretation Code Normal, Negative mg/dL [facility] Hemoglobin Test strip Ql (U) Large Abnormal Negative [facility] Interpretation and review of laboratory results Abnormal Invalid Interpretation Code [facility] Ketones Ql (U) Negative Invalid Interpretation Code Negative mg/dL [facility] Leukocyte esterase Test strip Ql (U) Small Abnormal Negative [facility] Nitrite Test strip Ql (U) Negative Invalid Interpretation Code Negative [facility] pH Test strip (U) 7.5 [pH] [facility] Protein Test strip Ql (U) Trace Abnormal Negative mg/dL [facility] Specific gravity Relative Density (U) 1.020 Invalid Interpretation Code [facility] Urobilinogen Test strip Qn (U) 0.2 mg/dL Invalid Interpretation Code <2.0, 0.2, Normal, Negative, 1.0, 2.0, <1.0 [facility] CURon 05-15-2018 CUR . MICRO - MicrobiologyPROCEDURE: Urine Culture [*1] Urine, Straight BODY SITE: CatherizedCOLLECTED DATE/TIME: 05/13/2018 22:15 EDT RECEIVED DATE/TIME: 05/14/2018 17:17 EDTSTART DATE/TIME: 05/14/2018 17:17 EDT FREE TEXT SOURCE:PRELIMINARY REPORTSPreliminary Report []Verified Date/Time/Personnel: 05/15/2018 14:09 EDTCulture results pending.Performing Locations*1: This test was performed at: [address], [address] [place] [address] ([place]) Comment on above: Performed By: #### C BC, ADIFF, ANEU ####[place] [id number]#### LIP, CMP, GFR ####[place] [address] .GFRon 05-14-2018 GFR Non- 45 ml/min/1.73sqm [facility] ([place]) Comment on above: Result Comment: GFR Population [...] mL/min/1.73 square meters Performed By: #### C BC, ADIFF, ANEU ####[place] [address] [place], [place] [address]#### LIP, CMP, GFR ####[address] [address] GFR 55 ml/min/1.73sqm Normal [facility] ([place]) Comment on above: Result Comment: GFR Population [...] By: #### C DESTINY SANDOVAL, ANEU ####[place] [address]#### LIP, CMP, GFR ####[place] [address] CMPon 05-14-2018 Alanine aminotransferase (ALT) 41 U/L High 10-35 [facility] ([place]) Comment on above: Performed By: #### DESTINY REYNOLDS, ANEU ####[place] [address]#### LIP, CMP, GFR ####[place] [address] Albumin 3.4 G/dL Low 3.5-5.0 [facility] ([place]) Comment on above: Performed By: #### Bonnie BC ADIFF, ANEU ####[facility] [place] [place] [address]#### LIP, CMP, GFR ####[place] [address] Albumin/Globulin Ratio 1.2 {ratio} Normal 1.1-2.5 [facility] ([place]) Comment on above: Performed By: #### Bonnie BCDESTINY, ANEU ####[facility] [place] [place] [address]#### LIP, CMP, GFR ####[facility] [place] [address] Alk Phos 56 U/L Normal 40-135 [facility] ([place]) Comment on above: Performed By: #### C BC, ADIFF, ANEU ####[facility] [address] [place], [place] [address]#### LIP, CMP, GFR ####[address] [address] Aspartate aminotransferase (AST) 42 U/L High 10-40 [facility] ([place]) Comment on above: Performed By: #### C BC, ADIFF, ANEU ####[facility] [address] [place], [place] [address]#### LIP, CMP, GFR ####[address] [address] Bili Total 0.5 mg/dL Normal 0.2-1.0 [facility] ([place] Comment on above: Performed By: #### C BC, ADIFF, ANEU ####[facility] [place] [address]#### LIP, CMP, GFR ####[place] [address] BUN/Creatinine Ratio 14 ratio Normal 7-27 [facility] ([place]) Comment on above: Performed By: #### C BC, ADIFF, ANEU ####[facility] [place], [place] [address]#### LIP, CMP, GFR ####[place] [address] Calcium 8.0 mg/dL Low 8.4-10.2 [facility] ([place] Comment on above: Performed By: #### C BC, ADIFF, ANEU ####[facility] [address] [place], [place] [address]#### LIP, CMP, GFR ####[place] [address] Chloride 104 mmol/L Normal 98-107 [facility] ([place]) Comment on above: Performed By: #### C BC, ADIFF, ANEU ####[facility] [address] [place], [place] [address]#### LIP, CMP, GFR ####[facility] [place] [address] CO2 23 mmol/L Normal 22-29 [facility] ([place] Comment on above: Performed By: #### C BC, ADIFF, ANEU ####[facility] [address] [place], [place] [address]#### LIP, CMP, GFR ####[place] [address] Creatinine 1.28 mg/dL High 0.55-1.02 [facility] ([place]) Comment on above: Performed By: #### C BC, ADIFF, ANEU ####[facility] [address] [place] [id number]#### LIP, CMP, GFR ####[place] [address] Electrolyte Balance 9.0 mEq/L Normal [facility] ([place]) Comment on above: Performed By: #### C BC, ADIFF, ANEU ####[facility] [place] [id number]#### LIP, CMP, GFR ####[place] [address] Globulin 2.9 G/dL Normal [facility] ([place]) Comment on above: Performed By: #### C BC, ADIFF, ANEU ####[facility] [address] [place] [id number]#### LIP, CMP, GFR ####[address] [address] Glucose mass conc 90 mg/dL Normal 70-105 [facility] ([place]) Comment on above: Performed By: #### C BC, ADIFF, ANEU ####[facility] [address] [place], [place] [address]#### LIP, CMP, GFR ####[facility] [place] [address] Potassium molar conc 4.6 mmol/L Normal 3.5-5.1 [facility] ([place]) Comment on above: Performed By: #### C BC, ADIFF, ANEU ####[facility] [place], [place] [address]#### LIP, CMP, GFR ####[address] [address] Protein 6.3 G/dL Low 6.4-8.2 [facility] ([place]) Comment on above: Performed By: #### C BC, ADIFF, ANEU ####[facility] [address] [place] [address]#### LIP, CMP, GFR ####[place] [address] [place] [address] Sodium 136 mmol/L Normal 136-145 [facility]) Comment on above: Performed By: #### C BC, ADIFF, ANEU ####[place] [address]#### LIP, CMP, GFR ####[place] [address] Urea nitrogen 18 mg/dL Normal 7-18 [facility] ([place]) Comment on above: Performed By: #### C BC, ADIFF, ANEU ####[address] [address]#### LIP, CMP, GFR ####[place] [address] LIPon 05-14-2018 Lipase Level 250 U/L Normal 73-393 Counts include 234 beds at the [facility] ([place]) Comment on above: Performed By: #### C BC, ADIFF, ANEU ####[address] [address]#### LIP, CMP, GFR ####[place] [address] [place] [address] Emergency Room Note on 05-14-2018 [place] Note Normal [facility] ([place]) Pat Eduon 05-14-2018 Pat Edu Normal [facility] ([place] Patient Summary Documentson 05-14-2018 Patient Summary Documents Normal [facility] ([place]) XR ABDOMEN COMPLETE W/DECUB/ ERECTon 05-14-2018 XR [...] potential acute finding identified. Interpreted By: Jyoti Youngreliminary Report By: Jyoti Young MDElectronically Signed By: Jyoti Young MD Dictated Date: 05/13/2018 10:11:56 PM Prelim Date: 05/13/2018 10:11:56 PM Sign Date: 05/13/2018 10:14:29 PM Normal [facility] ([place]) .Auto Diffon 05-13-2018 Basophils Auto #/vol (Bld) 0.00 10 3/mcL Normal 0.00-0.19 [facility] ([place]) Comment on above: Performed By: #### C DESTINY SANDOVAL ANEU ####[facility] [place] [address]#### LIP, CMP, GFR ####[address] [address] Basophils/100 WBC Auto (Bld) 0.5 % Normal 0.0-2.5 [facility] ([place] Comment on above: Performed By: #### C DESTINY SANDOVAL ANEU ####[facility] [address] [place] [address]#### LIP, CMP, GFR ####[place] [address] [place] [address] Eosinophils 0.10 10 3/mcL Normal 0.00-0.40 [facility] ([place]) Comment on above: Performed By: #### C DESTINY SANDOVAL ANEU ####[facility] [address] [place] [address]#### LIP, CMP, GFR ####[address] [address] Eosinophils/100 leukocytes 0.8 % Normal 0.0-7.0 [facility] ([place]) Comment on above: Performed By: #### C BC, ADIFF, ANEU ####[facility] [address] [place] [address]#### LIP, CMP, GFR ####[facility] [place] [address] Lymphocytes 1.60 10 3/mcL Normal 0.77-3.85 [facility] ([place]) Comment on above: Performed By: #### C BC, ADIFF, ANEU ####[facility] [address] [place] [address]#### LIP, CMP, GFR ####[address] [address] Lymphocytes/100 leukocytes 18.0 % Normal 10.0-50.0 [facility] ([place]) Comment on above: Performed By: #### C LORI, ADIFF, ANEU ####[place] [address]#### LIP, CMP, GFR ####[facility] [place] [address] Monocytes 0.60 10 3/mcL Normal 0.15-1.00 [facility] ([place]) Comment on above: Performed By: #### C LORI, ADIFF, ANEU ####[facility] [address] [place] [address]#### LIP, CMP, GFR ####[facility] [place] [address] Monocytes/100 leukocytes 6.8 % Normal 1.7-13.0 [facility] ([place]) Comment on above: Performed By: #### C BC, ADIFF, ANEU ####[facility] [address] [place] [address]#### LIP, CMP, GFR ####[facility] [place] [address] Neutrophils/100 WBC Auto (Bld) 73.9 % Normal 37.0-80.0 [facility] ([place]) Comment on above: Performed By: #### C BC, ADIFF, ANEU ####[place] [place], [place] [address]#### LIP, CMP, GFR ####[address] [address] .NEUABSon 05-13-2018 Neutrophil, Absolute 6.70 10 3/mcL High 2.85-6.16 [facility] ([place]) Comment on above: Performed By: #### C BC, ADIFF, ANEU ####[address] [place] [address]#### LIP, CMP, GFR ####[place] [address] .Urinalysis Microscopic (AO) on 05-13-2018 UA Bacteria 1+ /hpf Invalid Interpretation Code [facility] ([place] Comment on above: Performed By: #### U A, PREGU, UAMICAO ####[address] [place] [address] UA Squam Epithelial LOADED Invalid Interpretation Code None Seen [facility] ([place] Comment on above: Performed By: #### U A, PREGU, UAMICAO ####[address] [place], [place] [address] UA WBC LOADED Invalid Interpretation Code None Seen [facility] ([place] Comment on above: Performed By: #### U A, PREGU, UAMICAO ####[address] [place], [place] [address] Urine, erythrocytes None Seen Normal None Seen [facility] ([place] Comment on above: Performed By: #### U A, PREGU, UAMICAO ####[address] [place], [place] [address] CBCon 05-13-2018 Erythrocyte distribution width Auto Ratio (RBC) 13.9 % Normal 11.5-14.5 [facility] ([place] Comment on above: Performed By: #### C BC, ADIFF, ANEU ####[address] [place] [address]#### LIP, CMP, GFR ####[place] [address] Erythrocytes (RBC) 5.57 10 6/mcL High 4.20-5.40 [facility] ([place]) Comment on above: Performed By: #### Bonnie SANDOVAL ADIFF, ANEU ####[address] [place] [address]#### LIP, CMP, GFR ####[place] [address] Hematocrit (HCT) 49.2 % High 37.0-47.0 [facility] ([place] Comment on above: Performed By: #### C LORI, ADIFF, ANEU ####[address] [address]#### LIP, CMP, GFR ####[place] [address] Hemoglobin mass conc (Bld) 17.1 G/dL High 12.0-16.0 [facility] ([place] Comment on above: Performed By: #### DESTINY REYNOLDS, ANEU ####[address] [address]#### LIP, CMP, GFR ####[place] [address] MCH 30.6 pg Normal 27.0-31.2 [facility] ([place] Comment on above: Performed By: #### C LORI ADIFF, ANEU ####[address] [address]#### LIP, CMP, GFR ####[place] [address] MCHC mass conc (RBC) 34.7 G/dL Normal 33.0-37.0 [facility] ([place] Comment on above: Performed By: #### C ZACK SANDOVALIFF, ANEU ####[address] [place] [address]#### LIP, CMP, GFR ####[place] [address] MCV 88.3 fL Normal 80.0-94.0 [facility] ([place] Comment on above: Performed By: #### C BC, ADIFF, ANEU ####[place] [address]#### LIP, CMP, GFR ####[address] [address] Platelet mean volume (PMV) 8.0 fL Normal 7.4-10.4 [facility] ([place] Comment on above: Performed By: #### C BC, ADIFF, ANEU ####[place] [address]#### LIP, CMP, GFR ####[address] [address] Platelets 113 10 3/mcL Low 130-400 Counts include 234 beds at the [facility] ([place]) Comment on above: Performed By: #### C BC, ADIFF, ANEU ####[place] [address]#### LIP, CMP, GFR ####[place] [address] WBC (Leukocytes) 9.10 10 3/mcL Normal 4.60-10.80 [facility] ([place] Comment on above: Performed By: #### C LORI, ZACKIFF, ANEU ####[place] [address]#### LIP, CMP, GFR ####[address] [address] PREGUon 05-13-2018 HCG ( test) Ql (U) Negative Normal [facility] ([place] Comment on above: Performed By: #### U A, PREGU, UAMICAO ####[facility] [place] [address] test (u) int HCG not detected. Invalid Interpretation Code [facility] ([place] Comment on above: Performed By: #### U A, PREGU, UAMICAO ####[address] [place] [id number] UAon 05-13-2018 UA Appear Slightly Cloudy Invalid Interpretation Code Clear [facility] ([place] Comment on above: Performed By: #### U A, PREGU, UAMICAO ####[address] [place], [place] [address] UA Blood Negative Normal Negative [facility] ([place] Comment on above: Performed By: #### U A, PREGU, UAMICAO ####[address] [place] [address] UA Leuk Est Small Invalid Interpretation Code Negative [facility] ([place] Comment on above: Performed By: #### U A, PREGU, UAMICAO ####[address] [place] [address] UA Nitrite Negative Normal Negative [facility] ([place] Comment on above: Performed By: #### U A, PREGU, UAMICAO ####[address] [place] [address] UA pH 7.5 Normal [facility] ([place] Comment on above: Performed By: #### U A, PREGU, UAMICAO ####[address] [place] [address] UA Protein Negative Normal Negative [facility] ([place] Comment on above: Performed By: #### U A, PREGU, UAMICAO ####[address] [place] [address] UA Spec Grav 1.005 Invalid Interpretation Code [facility] ([place] Comment on above: Performed By: #### U A, PREGU, UAMICAO ####[address] [place] [address] UA Specimen Type Clean Catch Normal [facility] ([place] Comment on above: Performed By: #### U A, PREGU, UAMICAO ####[address] [place] [address] UA Urobilinogen 0.2 E.U./dL [facility] ([place]) Comment on above: Performed By: #### U A, PREGU, UAMICAO ####[address] [place] [address] Urine, color Yellow Normal Counts include 234 beds at the [facility] ([place] Comment on above: Performed By: #### U A, PREGU, UAMICAO ####[address] [place], [place] [address] Urine, glucose Negative Normal Negative [facility] ([place] Comment on above: Performed By: #### U A, PREGU, UAMICAO ####[address] [place], [place] [address] Urine, ketones presence Negative Normal Negative [facility] ([place] Comment on above: Performed By: #### U A, PREGU, UAMICAO ####[address] [place], [place] [address] Urine, urobilinogen Negative Normal Negative [facility] ([place] Comment on above: Performed By: #### U A, PREGU, UAMICAO ####[address] [place], [place] [address] CBC with Diffon 03-15-2018 Basophils #/vol (Bld) 0.1 K/mcL Normal 0-0.2 [facility] Comment on above: Performed By: #### C BCDIF, EDCTNI, CMET, LIPASE #### Unless otherwise noted, all testing performed by [place] [address] CLIA: [id number] Line Driver: Ismael Torre M.D. Basophils/100 WBC (Bld) 1.1 % Normal [facility] [place] Comment on above: Performed By: #### C BCDIF, EDCTNI, CMET, LIPASE #### Unless otherwise noted, all testing performed by [place] [address] CLIA: [id number] Line Driver: Ismael Torre M.D. Eosinophils #/vol (Bld) 0.2 K/mcL Normal 0-0.5 [facility] [place] Comment on above: Performed By: #### C BCDIF, EDCTNI, CMET, LIPASE #### Unless otherwise noted, all testing performed by [place] [address] CLIA: [id number] Line Driver: Ismael Torre M.D. Eosinophils/100 WBC (Bld) 3.2 % Normal [facility] [place] Comment on above: Performed By: #### C BCDIF, EDCTNI, CMET, LIPASE #### Unless otherwise noted, all testing performed by [place] [address] CLIA: [id number] Line Driver: Ismael Torre M.D. Erythrocyte distribution width Ratio (RBC) 13.4 % Normal 10.0-14.4 [facility] [place] Comment on above: Performed By: #### C BCDIF, EDCTNI, CMET, LIPASE #### Unless otherwise noted, all testing performed by [place] [address] CLIA: [id number] Line Driver: Ismael Torre M.D. Hematocrit Volume Fraction (Bld) 47.8 % High 34.4-44.8 [facility] [place] Comment on above: Performed By: #### C BCDIF, EDCTNI, CMET, LIPASE #### Unless otherwise noted, all testing performed by [place] [address] CLIA: [id number] Line Driver: Ismael Torre M.D. Hemoglobin mass conc (Bld) 15.7 g/dL High 11.6-15.4 [facility] [place] Comment on above: Performed By: #### C BCDIF, EDCTNI, CMET, LIPASE #### Unless otherwise noted, all testing performed by [place] [address] CLIA: [id number] Line Driver: Ismael Torre M.D. Lymphocytes #/vol (Bld) 1.4 K/mcL Normal 1.0-3.7 [facility] [place] Comment on above: Performed By: #### C BCDIF, EDCTNI, CMET, LIPASE #### Unless otherwise noted, all testing performed by [place] [address] CLIA: [id number] Line Driver: Ismael Torre M.D. Lymphocytes/100 WBC (Bld) 24.7 % Normal [facility] [place] Comment on above: Performed By: #### C BCDIF, EDCTNI, CMET, LIPASE #### Unless otherwise noted, all testing performed by [place] [address] CLIA: [id number] Line Driver: Ismael Torre M.D. MCH Entitic mass (RBC) 29.6 pg Normal 27.9-33.9 [facility] [place] Comment on above: Performed By: #### C BCDIF, EDCTNI, CMET, LIPASE #### Unless otherwise noted, all testing performed by [place] [address] CLIA: [id number] Line Driver: Ismael Torre M.D. MCHC mass conc (RBC) 32.8 g/dL Low 33.1-35.1 [facility] Comment on above: Performed By: #### C BCDIF, EDCTNI, CMET, LIPASE #### Unless otherwise noted, all testing performed by [place] [address] CLIA: [id number] Line Driver: Ismael Torre M.D. MCV Entitic volume (RBC) 90.5 fL Normal 82.6-98.9 [facility] [place] Comment on above: Performed By: #### C BCDIF, EDCTNI, CMET, LIPASE #### Unless otherwise noted, all testing performed by [place] [address] CLIA: [id number] Line Driver: Ismael Torre M.D. Metamyelocytes/100 WBC (Bld) 2.2 % High 0 [facility] [place] Comment on above: Performed By: #### C BCDIF, EDCTNI, CMET, LIPASE #### Unless otherwise noted, all testing performed by [place] [phone] CLIA: [id number] Line Driver: Ismael Torre M.D. Monocytes #/vol (Bld) 0.2 K/mcL Normal 0.1-0.6 [facility] Comment on above: Performed By: #### C BCDIF, EDCTNI, CMET, LIPASE #### Unless otherwise noted, all testing performed by [place] [phone] CLIA: [id number] Line Driver: Ismael Torre M.D. Monocytes/100 WBC (Bld) 3.2 % Normal [facility] [place] Comment on above: Performed By: #### C BCDIF, EDCTNI, CMET, LIPASE #### Unless otherwise noted, all testing performed by [place] [phone] CLIA: [id number] Line Driver: Ismael Torre M.D. Neutrophils #/vol (Bld) 3.9 K/mcL Normal 1.2-6.9 [facility] [place] Comment on above: Performed By: #### C BCDIF, EDCTNI, CMET, LIPASE #### Unless otherwise noted, all testing performed by [place] [address] CLIA: [id number] Line Driver: Ismael Torre M.D. Nucleated RBC #/vol (Bld) 1 /100 WBC High 0 [facility] [place] Comment on above: Performed By: #### C BCDIF, EDCTNI, CMET, LIPASE #### Unless otherwise noted, all testing performed by [place] [address] CLIA: [id number] Line Driver: Ismael Torre M.D. Platelet mean volume Entitic volume (Bld) 8.8 fL Normal 7.0-10.6 [facility] [place] Comment on above: Performed By: #### C BCDIF, EDCTNI, CMET, LIPASE #### Unless otherwise noted, all testing performed by [place] [address] CLIA: [id number] Line Driver: Ismael Torre M.D. Platelets #/vol (Bld) 133 K/mcL Low 162-402 [facility] Comment on above: Performed By: #### C BCDIF, EDCTNI, CMET, LIPASE #### Unless otherwise noted, all testing performed by [place] [address] CLIA: [id number] Line Driver: Ismael Torre M.D. RBC #/vol (Bld) 5.29 M/mcL High 3.7-5.0 [facility] Comment on above: Performed By: #### C BCDIF, EDCTNI, CMET, LIPASE #### Unless otherwise noted, all testing performed by [address] [place] [address] CLIA: [id number] Line Driver: Ismael Torre M.D. Segmented Neut % 65.6 % Normal [facility] Comment on above: Result Comment: Smea r reviewed to verify automated differential> Performed By: #### C BCDIF, EDCTNI, CMET, LIPASE #### Unless otherwise noted, all testing performed by [place] [address] CLIA: [id number] Line Driver: Ismael Torre M.D. WBC #/vol (Bld) 5.8 K/mcL Normal 3.4-10.6 [facility] Comment on above: Performed By: #### C BCDIF, EDCTNI, CMET, LIPASE #### Unless otherwise noted, all testing performed by [place] [address] CLIA: [id number] Line Driver: Ismael Torre M.D. Comprehensive Metabolic Pane [facility] 03-15-2018 Albumin mass conc 3.8 g/dL Normal 3.2-5.2 [facility] Comment on above: Performed By: #### G LUX #### Unless otherwise noted, all testing performed by [place] [phone] CLIA: [id number] Line Driver: Ismael Torre M.D. ALP enzyme act/vol 66 U/L Normal 40-150 [facility] Comment on above: Performed By: #### G LUX #### Unless otherwise noted, all testing performed by [place] [address] CLIA: [id number] Line Driver: Ismael Torre M.D. ALT enzyme act/vol 56 U/L Normal 14-65 [facility] Comment on above: Result Comment: This test result might be falsely depressed or falsely elevated on samples drawn from patients taking Sulfasalazine and Sulfapyridine. Venipuncture should occur prior to taking either of these drugs. Performed By: #### G LUX #### Unless otherwise noted, all testing performed by [place] [address] CLIA: [id number] Line Driver: Ismael Torre M.D. AST enzyme act/vol 51 U/L High 0-45 [facility] Comment on above: Result Comment: This test result might be falsely depressed or falsely elevated on samples drawn from patients taking Sulfasalazine and Sulfapyridine. Venipuncture should occur prior to taking either of these drugs. Performed By: #### G LUX #### Unless otherwise noted, all testing performed by [place] [address] CLIA: [id number] Line Driver: Ismael Torre M.D. Bilirubin mass conc 0.5 mg/dL Normal 0.3-1.2 [facility] Comment on above: Performed By: #### G LUX #### Unless otherwise noted, all testing performed by [place] [address] CLIA: [id number] Line Driver: Ismael Torre M.D. Calcium mass conc 9.7 mg/dL Normal 8.4-10.2 [facility] Comment on above: Performed By: #### G LUX #### Unless otherwise noted, all testing performed by [place] [address] CLIA: [id number] Line Driver: Ismael Torre M.D. Chloride molar conc 105 mmol/L Normal 98-108 [facility] Comment on above: Performed By: #### G LUX #### Unless otherwise noted, all testing performed by [place] [address] CLIA: [id number] Line Driver: Ismael Torre M.D. CO2 molar conc 26 mmol/L Normal 21-32 [facility] [place] Comment on above: Performed By: #### G LUX #### Unless otherwise noted, all testing performed by [place] [address] CLIA: [id number] Line Driver: Ismael Torre M.D. Creatinine mass conc 1.67 mg/dL High 0.40-1.10 [facility] Comment on above: Performed By: #### G LUX #### Unless otherwise noted, all testing performed by [place] [address] CLIA: [id number] Line Driver: Ismael Torre M.D. GFR/1.73 sq M predicted among blacks MDRD vol rate/area (S/P/Bld) 40 mL/min/{1.73_m2} Low >60 [facility] Comment on above: Result Comment: Afri can Ivorian GFR Calc Performed By: #### G LUX #### Unless otherwise noted, all testing performed by [place] [address] CLIA: [id number] Line Driver: Ismael Torre M.D. GFR/1.73 sq M predicted among non-blacks MDRD vol rate/area (S/P/Bld) 33 mL/min/{1.73_m2} Low >60 [facility] Comment on above: Result Comment: Non- GFR [...] Unless otherwise noted, all testing performed by [place] [address] CLIA: [id number] Line Driver: Ismael Torre M.D. Glucose mass conc 88 mg/dL Normal 70-99 [facility] Comment on above: Result Comment: This test result might be falsely depressed or falsely elevated on samples drawn from patients taking Sulfasalazine and Sulfapyridine. Venipuncture should occur prior to taking either of these drugs. Performed By: #### G LUX #### Unless otherwise noted, all testing performed by [place] [phone] CLIA: [id number] Line Driver: Ismael Torre M.D. Potassium molar conc 4.4 mmol/L Normal 3.5-5.1 [facility] Comment on above: Performed By: #### G LUX #### Unless otherwise noted, all testing performed by [place] [phone] CLIA: [id number] Line Driver: Ismael Torre M.D. Protein mass conc 7.3 g/dL Normal 6.0-8.0 [facility] Comment on above: Performed By: #### G LUX #### Unless otherwise noted, all testing performed by [place] [phone] CLIA: [id number] Line Driver: Ismael Torre M.D. Sodium molar conc 137 mmol/L Normal 135-145 [facility] Comment on above: Performed By: #### G LUX #### Unless otherwise noted, all testing performed by [place] [address] CLIA: [id number] Line Driver: Ismael Torre M.D. Urea nitrogen mass conc 30 mg/dL High 8-25 [facility] [place] Comment on above: Performed By: #### G LUX #### Unless otherwise noted, all testing performed by [place] [address] CLIA: [id number] Line Driver: Ismael Torre M.D. ED Cardiac Troponin-Ion 02-16 Troponin I.cardiac mass conc ng/mL Normal < 45 [facility] [place] Comment on above: Result Comment: Elev ation [...] Unless otherwise noted, all testing performed by [place] [address] CLIA: [id number] Line Driver: Ismael Torre M.D. Lipaseon 03-15-2018 Lipase enzyme act/vol 288 U/L Normal 73-393 [facility] Comment on above: Performed By: #### G LUX #### Unless otherwise noted, all testing performed by [place] [address] CLIA: [id number] Line Driver: Ismael Torre M.D. Test,Urine Qualon 03-15-2018 HCG.beta subunit ( test) Ql (U) Negative Normal Negative [facility] [place] Comment on above: Result Comment: Rapi d [...] Unless otherwise noted, all testing performed by [place] [address] CLIA: [id number] Line Driver: Ismael Torre M.D. Urinalysis, Routineon 2017 Bacteria LM.HPF #/area (Urine sed) Few Abnormal NS;RARE [facility] [place] Comment on above: Performed By: #### G LUX #### Unless otherwise noted, all testing performed by [place] [address] CLIA: [id number] Line Driver: Ismael Torre M.D. Bilirubin,Urine Negative Normal NEG;NEGATIVE [facility] Comment on above: Performed By: #### G LUX #### Unless otherwise noted, all testing performed by [place] [address] CLIA: [id number] Line Driver: Ismael Torre M.D. Blood,Urine Small Abnormal NEG;NEGATIVE [facility] [place] Comment on above: Performed By: #### G LUX #### Unless otherwise noted, all testing performed by [place] [address] CLIA: [id number] Line Driver: Ismael Torre M.D. Character Nom (U) Cloudy Normal [facility] Comment on above: Performed By: #### G LUX #### Unless otherwise noted, all testing performed by [place] [address] CLIA: [id number] Line Driver: Ismael Torre M.D. Color Nom (U) Yellow Normal [facility] [place] Comment on above: Performed By: #### G LUX #### Unless otherwise noted, all testing performed by [place] [phone] CLIA: [id number] Line Driver: Ismael Torre M.D. Glucose Ql (U) Negative Normal NEG;NEGATIVE [facility] Comment on above: Performed By: #### G LUX #### Unless otherwise noted, all testing performed by [place] [phone] CLIA: [id number] Line Driver: Ismael Torre M.D. Ketone,Urine Negative Normal NEG;NEGATIVE [facility] [place] Comment on above: Performed By: #### G LUX #### Unless otherwise noted, all testing performed by [place] [phone] CLIA: [id number] Line Driver: Ismael Torre M.D. Leuk.Esterase,Urine Large Abnormal Negative [facility] Comment on above: Performed By: #### G LUX #### Unless otherwise noted, all testing performed by [place] [phone] CLIA: [id number] Line Driver: Ismael Torre M.D. Nitrite,Urine Negative Normal NEG;NEGATIVE [facility] Comment on above: Performed By: #### G LUX #### Unless otherwise noted, all testing performed by [place] [phone] CLIA: [id number] Line Driver: Ismael Torre M.D. pH (U) 5.0 [pH] Normal 4.5-8.0 [facility] [place] Comment on above: Performed By: #### G LUX #### Unless otherwise noted, all testing performed by [place] [address] CLIA: [id number] Line Driver: Ismael Torre M.D. Protein mass conc (U) Negative Normal NEG;NEGATIVE [facility] Comment on above: Performed By: #### G LUX #### Unless otherwise noted, all testing performed by [place] [phone] CLIA: [id number] Line Driver: Ismael Torre M.D. RBC,Urine 8 /HPF High 0-5 [facility] [place] Comment on above: Performed By: #### G LUX #### Unless otherwise noted, all testing performed by [place] [phone] CLIA: [id number] Line Driver: Ismael Torre M.D. Specific [place],Urine 1.015 Normal 1.003-1.029 [facility] [place] Comment on above: Performed By: #### G LUX #### Unless otherwise noted, all testing performed by [place] [address] CLIA: [id number] Line Driver: Ismael Torre M.D. Squamous Epithelial 11 /HPF Normal 0-40 [facility] Comment on above: Performed By: #### G LUX #### Unless otherwise noted, all testing performed by [place] [address] CLIA: [id number] Line Driver: Ismael Torre M.D. Urobilinogen,Urine < 2.0 Normal <2 [facility] Comment on above: Performed By: #### G LUX #### Unless otherwise noted, all testing performed by [place] [address] CLIA: [id number] Line Driver: Ismael Torre M.D. WBC,Urine 46 /HPF High 0-5 [facility] [place] Comment on above: Performed By: #### G LUX #### Unless otherwise noted, all testing performed by [place] [address] CLIA: [id number] Line Driver: Ismael Torre M.D. US Abdomen Limited Studyon 0 01-18-2018 US Abdomen Limited Study Invalid Interpretation Code ONBASE Basic Metabolic Panelon 12-16 Calcium mass conc 8.9 mg/dL Normal 8.4-10.2 [facility] Comment on above: Performed By: #### C HEM8, VALP #### Unless otherwise noted, all testing performed by [place] [address] CLIA: [id number] Line Driver: Ismael Torre M.D. Chloride molar conc 105 mmol/L Normal 98-108 [facility] Comment on above: Performed By: #### C HEM8, VALP #### Unless otherwise noted, all testing performed by [place] [address] CLIA: [id number] Line Driver: Ismael Torre M.D. CO2 molar conc 22 mmol/L Normal 21-32 [facility] [place] Comment on above: Performed By: #### C HEM8, VALP #### Unless otherwise noted, all testing performed by [place] [address] CLIA: [id number] Line Driver: Ismael Torre M.D. Creatinine mass conc 1.42 mg/dL High 0.40-1.10 [facility] Comment on above: Performed By: #### C HEM8, VALP #### Unless otherwise noted, all testing performed by [place] [address] CLIA: [id number] Line Driver: Ismael Torre M.D. GFR/1.73 sq M predicted among blacks MDRD vol rate/area (S/P/Bld) 49 mL/min/{1.73_m2} Low >60 [facility] Comment on above: Result Comment: Afri can Ivorian GFR Calc Performed By: #### C HEM8, VALP #### Unless otherwise noted, all testing performed by [place] [address] CLIA: [id number] Line Driver: Ismael Torre M.D. GFR/1.73 sq M predicted among non-blacks MDRD vol rate/area (S/P/Bld) 40 mL/min/{1.73_m2} Low >60 [facility] Comment on above: Result Comment: Non- GFR [...] Unless otherwise noted, all testing performed by [place] [address] CLIA: [id number] Line Driver: Ismael Torre M.D. Glucose mass conc 86 mg/dL Normal 70-99 [facility] Comment on above: Result Comment: This test result might be falsely depressed or falsely elevated on samples drawn from patients taking Sulfasalazine and Sulfapyridine. Venipuncture should occur prior to taking either of these drugs. Performed By: #### C HEM8, VALP #### Unless otherwise noted, all testing performed by [place] [phone] CLIA: [id number] Line Driver: Ismael Torre M.D. Potassium molar conc 4.2 mmol/L Normal 3.5-5.1 [facility] Comment on above: Performed By: #### C HEM8, VALP #### Unless otherwise noted, all testing performed by [place] [phone] CLIA: [id number] Line Driver: Ismael Torre M.D. Sodium molar conc 137 mmol/L Normal 135-145 [facility] Comment on above: Performed By: #### C HEM8, VALP #### Unless otherwise noted, all testing performed by [place] [phone] CLIA: [id number] Line Driver: Ismael Torre M.D. Urea nitrogen mass conc 28 mg/dL High 8-25 [facility] Comment on above: Performed By: #### C HEM8, VALP #### Unless otherwise noted, all testing performed by [place] [phone] CLIA: [id number] Line Driver: Ismael Torre M.D. CBC with Diffon 01-02-2018 Basophils #/vol (Bld) 0.0 K/mcL Normal 0-0.2 [facility] Comment on above: Performed By: #### C BCDIF #### Unless otherwise noted, all testing performed by [place] [address] CLIA: [id number] Line Driver: Ismael Torre M.D. Basophils/100 WBC (Bld) 0.4 % Normal [facility] Comment on above: Performed By: #### C BCDIF #### Unless otherwise noted, all testing performed by [place] [address] CLIA: [id number] Line Driver: Ismael Torre M.D. Eosinophils #/vol (Bld) 0.1 K/mcL Normal 0-0.5 [facility] Comment on above: Performed By: #### C BCDIF #### Unless otherwise noted, all testing performed by [place] [phone] CLIA: [id number] Line Driver: Ismael Torre M.D. Eosinophils/100 WBC (Bld) 1.6 % Normal [facility] Comment on above: Performed By: #### C BCDIF #### Unless otherwise noted, all testing performed by [place] [address] CLIA: [id number] Line Driver: Ismael Torre M.D. Erythrocyte distribution width Ratio (RBC) 13.6 % Normal 10.0-14.4 [facility] Comment on above: Performed By: #### C BCDIF #### Unless otherwise noted, all testing performed by [place] [address] CLIA: [id number] Line Driver: Ismael Torre M.D. Hematocrit Volume Fraction (Bld) 41.9 % Normal 34.4-44.8 [facility] Comment on above: Performed By: #### C BCDIF #### Unless otherwise noted, all testing performed by [place] [address] CLIA: [id number] Line Driver: Ismael Torre M.D. Hemoglobin mass conc (Bld) 14.0 g/dL Normal 11.6-15.4 [facility] Comment on above: Performed By: #### C BCDIF #### Unless otherwise noted, all testing performed by [place] [address] CLIA: [id number] Line Driver: Ismael Torre M.D. Lymphocytes #/vol (Bld) 2.1 K/mcL Normal 1.0-3.7 [facility] Comment on above: Performed By: #### C BCDIF #### Unless otherwise noted, all testing performed by [place] [address] CLIA: [id number] Line Driver: Ismael Torre M.D. Lymphocytes/100 WBC (Bld) 29.9 % Normal [facility] Comment on above: Performed By: #### C BCDIF #### Unless otherwise noted, all testing performed by [place] [address] CLIA: [id number] Line Driver: Ismael Torre M.D. MCH Entitic mass (RBC) 29.7 pg Normal 27.9-33.9 [facility] Comment on above: Performed By: #### C BCDIF #### Unless otherwise noted, all testing [facility] [place] [address] CLIA: [id number] Line Driver: Ismael Torre M.D. MCHC mass conc (RBC) 33.4 g/dL Normal 33.1-35.1 [facility] Comment on above: Performed By: #### C BCDIF #### Unless otherwise noted, all testing performed by [place] [phone] CLIA: [id number] Line Driver: Ismael Torre M.D. MCV Entitic volume (RBC) 89.0 fL Normal 82.6-98.9 [facility] Comment on above: Performed By: #### C BCDIF #### Unless otherwise noted, all testing performed by [place] [phone] CLIA: [id number] Line Driver: Ismael Torre M.D. Monocytes #/vol (Bld) 0.7 K/mcL High 0.1-0.6 [facility] Comment on above: Performed By: #### C BCDIF #### Unless otherwise noted, all testing performed by [place] [phone] CLIA: [id number] Line Driver: Ismael Torre M.D. Monocytes/100 WBC (Bld) 9.7 % Normal [facility] Comment on above: Performed By: #### C BCDIF #### Unless otherwise noted, all testing performed by [place] [phone] CLIA: [id number] Line Driver: Ismael Torre M.D. Neutrophils #/vol (Bld) 4.1 K/mcL Normal 1.2-6.9 [facility] Comment on above: Performed By: #### C BCDIF #### Unless otherwise noted, all testing performed by [place] [address] CLIA: [id number] Line Driver: Ismael Torre M.D. Platelet mean volume Entitic volume (Bld) 8.6 fL Normal 7.0-10.6 [facility] Comment on above: Performed By: #### C BCDIF #### Unless otherwise noted, all testing performed by [place] [address] CLIA: [id number] Line Driver: Ismael Torre M.D. Platelets #/vol (Bld) 100 K/mcL Low 162-402 [facility] Comment on above: Performed By: #### C BCDIF #### Unless otherwise noted, all testing performed by [place] [address] CLIA: [id number] Line Driver: Ismael Torre M.D. RBC #/vol (Bld) 4.71 M/mcL Normal 3.7-5.0 [facility] Comment on above: Performed By: #### C BCDIF #### Unless otherwise noted, all testing performed by [place] [address] CLIA: [id number] Line Driver: Ismael Torre M.D. Segmented Neut % 58.4 % Normal [facility] Comment on above: Performed By: #### C BCDIF #### Unless otherwise noted, all testing performed by [place] [address] CLIA: [id number] Line Driver: Ismael Torre M.D. WBC #/vol (Bld) 7.0 K/mcL Normal 3.4-10.6 [facility] Comment on above: Performed By: #### C BCDIF #### Unless otherwise noted, all testing performed by [facility] [address]. [place] [address] CLIA: [id number] Line Driver: Ismael Torre M.D. CHEST (ONE VIEW ONLY)on 12-16 CHEST (ONE VIEW ONLY) Final Report Accession No: [id number] Performed: Jan 02 2018 1:47PM Examination: [...] Trans: n/a : cc: Normal [facility] Glucose, POCon 01-02-2018 Glucose mass conc 103 mg/dL Normal 70-105 [facility] Comment on above: Performed By: #### G LUX #### Unless otherwise noted, all testing performed by [facility] [address] [facility]. [place] [address] CLIA: [id number] Line Driver: Ismael Torre M.D. Levetiracetamon 01-02-2018 Levetiracetam mass conc 45.1 ug/mL Normal 12.0 - 46.0 [facility] Comment on above: Result Comment: ---- ADDITIONAL INFORMATION This test was developed and its performance characteristics determined by [facility] in a manner consistent with CLIA requirements. This test has not been cleared or approved by the U.S. Food and Drug Administration. Test Performed by: [facility] [place] [address] Performed By: #### L BENJYETMELIZAIRA #### Unless otherwise noted, all testing performed by [place] [address] CLIA: [id number] Line Driver: Ismael Torre M.D. Topiramateon 01-02-2018 Topiramate 1.6 mcg/mL Normal [facility] Comment on above: Result Comment: ---- REFERENCE VALUE Reference values depend on clinical use: Anticonvulsant: 5.0-20.0 mcg/mL Psychiatric: 2.0-8.0 mcg/mL ADDITIONAL INFORMATION This test was developed and its performance characteristics determined by [facility] in a manner consistent with CLIA requirements. This test has not been cleared or approved by the U.S. Food and Drug Administration. Test Performed by: [facility] [place] [address] Performed By: #### L LYNN TOPIRA #### Unless otherwise noted, all testing performed by [place] [address] CLIA: [id number] Line Driver: Ismael Torre M.D. Urinalysis, Routineon 2017 Bilirubin,Urine Negative Normal NEG;NEGATIVE [facility] Comment on above: Performed By: #### U A #### Unless otherwise noted, all testing performed by [place] [address] CLIA: [id number] Line Driver: Ismael Torre M.D. Blood,Urine Negative Normal NEG;NEGATIVE [facility] Comment on above: Performed By: #### U A #### Unless otherwise noted, all testing performed by [place] [address] CLIA: [id number] Line Driver: Ismael Torre M.D. Character Nom (U) Clear Normal [facility] Comment on above: Performed By: #### U A #### Unless otherwise noted, all testing performed by [place] [phone] CLIA: [id number] Line Driver: Ismael Torre M.D. Color Nom (U) Straw Normal [facility] Comment on above: Performed By: #### U A #### Unless otherwise noted, all testing performed by [place] [phone] CLIA: [id number] Line Driver: Ismael Torre M.D. Glucose Ql (U) Negative Normal NEG;NEGATIVE [facility] Comment on above: Performed By: #### U A #### Unless otherwise noted, all testing performed by [place] [address] CLIA: [id number] Line Driver: Ismael Torre M.D. Ketone,Urine Negative Normal NEG;NEGATIVE [facility] Comment on above: Performed By: #### U A #### Unless otherwise noted, all testing performed by [place] [address] CLIA: [id number] Line Driver: Ismael Torre M.D. Leuk.Esterase,Urine Negative Normal Negative [facility] Comment on above: Performed By: #### U A #### Unless otherwise noted, all testing performed by [place] [address] CLIA: [id number] Line Driver: Ismael Torre M.D. Nitrite,Urine Negative Normal NEG;NEGATIVE [facility] Comment on above: Performed By: #### U A #### Unless otherwise noted, all testing performed by [place] [phone] CLIA: [id number] Line Driver: Ismael Torre M.D. pH (U) 6.0 [pH] Normal 4.5-8.0 [facility] Comment on above: Performed By: #### U A #### Unless otherwise noted, all testing performed by [place] [phone] CLIA: [id number] Line Driver: Ismael Torre M.D. Protein mass conc (U) Negative Normal NEG;NEGATIVE [facility] Comment on above: Performed By: #### U A #### Unless otherwise noted, all testing performed by [place] [address] CLIA: [id number] Line Driver: Ismael Torre M.D. RBC LM.HPF #/area (Urine sed) /[HPF] Normal 0-5 [facility] Comment on above: Performed By: #### U A #### Unless otherwise noted, all testing performed by [place] [address] CLIA: [id number] Line Driver: Ismael Torre M.D. Specific [place],Urine 1.006 Normal 1.003-1.029 [facility] Comment on above: Performed By: #### U A #### Unless otherwise noted, all testing performed by [place] [address] CLIA: [id number] Line Driver: Ismael Torre M.D. Squamous Epithelial 1 /HPF Normal 0-40 [facility] Comment on above: Performed By: #### U A #### Unless otherwise noted, all testing performed by [place] [phone] CLIA: [id number] Line Driver: Ismael Torre M.D. Urobilinogen,Urine < 2.0 Normal <2 [facility] Comment on above: Performed By: #### U A #### Unless otherwise noted, all testing performed by [place] [phone] CLIA: [id number] Line Driver: Ismael Torre M.D. WBC,Urine 1 /HPF Normal 0-5 [facility] Comment on above: Performed By: #### U A #### Unless otherwise noted, all testing performed by [place] [address] CLIA: [id number] Line Driver: Ismael Torre M.D. Valproic Acidon 01-02-2018 Protein mass conc 72 mcg/mL Normal 50-100 [facility] Comment on above: Result Comment: Resu lt should be correlated with last dose as reflected in the medical record. Performed By: #### C HEM8, VALP #### Unless otherwise noted, all testing performed by [facility] [address]. [place] [id number] CLIA: [id number] Line Driver: Ismael Torre M.D. BRAIN WITH SPECTon 7 BRAIN WITH SPECT Performed at [facility] APPROVED BY: Surinder Carpenter MD EXAMINATION: [...] caudate nuclei, bilaterally. IMPRESSION: Normal study. Normal [facility] Vital Signs Date Time Vital Sign Value Performing Clinician Facility 04-23-2025 04:54-0400 Body temperature 98.2 [degF] Dr. Sree Jamison MD Work Phone: [facility] 04-23-2025 04:54-0400 Diastolic blood pressure 74 mm[Hg] Dr. Sree Jamison MD Work Phone: [facility] 04-23-2025 04:54-0400 Heart rate 87 /min Dr. Sree Jamison MD Work Phone: [facility] 04-23-2025 04:54-0400 Respiratory rate 18 /min Dr. Sree Jamison MD Work Phone: [facility] 04-23-2025 04:54-0400 SaO2% (BldA) [Mass fraction] 97 % Dr. Sree Jamison MD Work Phone: [facility] 04-23-2025 04:54-0400 Systolic blood pressure 169 mm[Hg] Dr. Sree Jamison MD Work Phone: [facility] 04-23-2025 01:51-0400 Body height 149.[address] Sree Jamison MD Work Phone: 5(359)298-185498 [place] [address] 04-23-2025 01:51-0400 Body mass index (BMI) [Ratio] 33.5 kg/m2 Dr. Sree Jamison MD Work Phone: 7(683)620-447815 [place] [address] 04-23-2025 01:51-0400 Body weight 75.[address] Sree Jamison MD Work Phone: 7(941)956-576315 [place] [address] 04-05-2025 01:26-0400 Body temperature 98.3 [degF] Dr. Sree Jamison MD Work Phone: 6(532)510-900015 [place] [address] 04-05-2025 01:26-0400 Diastolic blood pressure 90 mm[Hg] Dr. Sree Jamison MD Work Phone: 8(584)616-397815 [place] [address] 04-05-2025 01:26-0400 Heart rate 77 /min Dr. Sree Jamison MD Work Phone: 9(711)037-189315 [place] [address] 04-05-2025 01:26-0400 Respiratory rate 18 /min Dr. Sree Jamison MD Work Phone: 3(832)470-151015 [place] [address] 04-05-2025 01:26-0400 SaO2% (BldA) [Mass fraction] 96 % Dr. Sree Jamison MD Work Phone: 2(342)583-283115 [place] [address] 04-05-2025 01:26-0400 Systolic blood pressure 165 mm[Hg] Dr. Sree Jamison MD Work Phone: 3(294)599-529815 [place] [address] 04-04-2025 15:43-0400 Body mass index (BMI) [Ratio] 33.1 kg/m2 Dr. Sree Jamison MD Work Phone: 6(751)048-325915 [place] [address] 04-04-2025 15:43-0400 Body weight 74.[address] Sree Jamison MD Work Phone: 5(217)747-934715 [place] [address] 04-04-2025 15:40-0400 Body height 149.[address] Sree Jamison MD Work Phone: 4(407)037-299715 [place] [address] 03-21-2025 18:00-0400 Diastolic blood pressure 70 mm[Hg] Dr. Sree Jamison MD Work Phone: [facility] 03-21-2025 18:00-0400 Heart rate 90 /min Dr. Sree Jamison MD Work Phone: [facility] 03-21-2025 18:00-0400 Respiratory rate 12 /min Dr. Sree Jamison MD Work Phone: [facility] 03-21-2025 18:00-0400 SaO2% (BldA) [Mass fraction] 99 % Dr. Sree Jamison MD Work Phone: [facility] 03-21-2025 18:00-0400 Systolic blood pressure 180 mm[Hg] Dr. Sree Jamison MD Work Phone: [facility] 03-21-2025 16:27-0400 Body temperature 98.6 [degF] Dr. Sree Jamison MD Work Phone: [facility] 03-21-2025 09:37-0400 Body height 149.[address] rSee Jamison MD Work Phone: [facility] 03-21-2025 09:37-0400 Body mass index (BMI) [Ratio] 34.2 kg/m2 Dr. Sree Jamison MD Work Phone: [facility] 03-21-2025 09:37-0400 Body weight [address] Sree Jamison MD Work Phone: [facility] 03-15-2025 10:39-0400 Body temperature 97.81 [degF] Sohail Hernandez MD PhD Work Phone: [facility] 03-15-2025 10:39-0400 Diastolic blood pressure 81 mm[Hg] Sohail Hernandez MD PhD Work Phone: [facility] 03-15-2025 10:39-0400 Heart rate 85 /min Sohail Hernandez MD PhD Work Phone: [facility] 03-15-2025 10:39-0400 Respiratory rate 20 /min Sohail Hernandez MD PhD Work Phone: [facility] 03-15-2025 10:39-0400 SaO2% (BldA) [Mass fraction] 95 % Sohail Hernandez MD PhD Work Phone: [facility] 03-15-2025 10:39-0400 Systolic blood pressure 124 mm[Hg] Sohail Hernandez MD PhD Work Phone: [facility] 03-13-2025 17:25-0400 Body height 142.2 cm Sohail Hernandez MD PhD Work Phone: [facility] 01-25-2025 14:36-0400 Body height 139.7 cm Valentina Chopra MD Work Phone: [facility] 01-25-2025 14:36-0400 Diastolic blood pressure 78 mm[Hg] Valentina Chopra MD Work Phone: [facility] 01-25-2025 14:36-0400 Heart rate 76 /min Valentina Chopra MD Work Phone: [facility] 01-25-2025 14:36-0400 Systolic blood pressure 137 mm[Hg] Valentina Chopra MD Work Phone: [facility] 12-08-2024 14:10-0500 Body mass index (BMI) [Ratio] 36.49 kg/m2 Sohail Hernandez MD PhD Work Phone: [facility] 12-08-2024 14:10-0500 Body weight 71.22 kg Sohail Hernandez MD PhD Work Phone: [facility] 10-26-2024 11:38-0500 Diastolic blood pressure 84 mm[Hg] Sohail Hernandez MD PhD Work Phone: [facility] 10-26-2024 11:38-0500 Systolic blood pressure 140 mm[Hg] Sohail Hernandez MD PhD Work Phone: [facility] 07-18-2024 12:47-0400 Body height 139.7 cm Valentina Chopra MD Work Phone: [facility] 07-18-2024 12:47-0400 Body mass index (BMI) [Ratio] 36.49 kg/m2 Valentina Chopra MD Work Phone: [facility] 07-18-2024 12:47-0400 Body weight 71.22 kg Valentina Chopra MD Work Phone: [facility] 07-18-2024 12:47-0400 Diastolic blood pressure 104 mm[Hg] Valentina Chopra MD Work Phone: [facility] 07-18-2024 12:47-0400 Heart rate 69 /min Valentina Chopra MD Work Phone: [facility] 07-18-2024 12:47-0400 Systolic blood pressure 164 mm[Hg] Valentina Chopra MD Work Phone: [facility] 07-07-2024 11:51-0400 Body height 139.7 cm Sohail Hernandez MD PhD Work Phone: [facility] 07-07-2024 11:51-0400 Body mass index (BMI) [Ratio] 36.49 kg/m2 Sohail Hernandez MD PhD Work Phone: [facility] 07-07-2024 11:51-0400 Body weight 71.22 kg Sohail Hernandez MD PhD Work Phone: [facility] 07-07-2024 11:51-0400 Diastolic blood pressure 53 mm[Hg] Sohail Hernandez MD PhD Work Phone: [facility] 07-07-2024 11:51-0400 Heart rate 78 /min Sohail Hernandez MD PhD Work Phone: [facility] 07-07-2024 11:51-0400 Systolic blood pressure 92 mm[Hg] Sohail Hernandez MD PhD Work Phone: [facility] 06-16-2024 14:00-0400 Diastolic blood pressure 84 mm[Hg] Raúl Hudson MD Work Phone: [facility] 06-16-2024 14:00-0400 Heart rate 68 /min Raúl Hudson MD Work Phone: [facility] 06-16-2024 14:00-0400 Systolic blood pressure 142 mm[Hg] Raúl Hudson MD Work Phone: [facility] 06-06-2024 12:10-0400 Respiratory rate 16 /min Destinee Price MD Work Phone: [facility] 06-06-2024 07:41-0400 Body temperature 97.7 [degF] Destinee Price MD Work Phone: [facility] 06-06-2024 07:41-0400 Diastolic blood pressure 78 mm[Hg] Destinee Price MD Work Phone: [facility] 06-06-2024 07:41-0400 Heart rate 76 /min Destinee Price MD Work Phone: [facility] 06-06-2024 07:41-0400 SaO2% (BldA) [Mass fraction] 93 % Destinee Price MD Work Phone: [facility] 06-06-2024 07:41-0400 Systolic blood pressure 169 mm[Hg] Destinee Price MD Work Phone: [facility] 06-05-2024 15:09-0400 Body height 139.7 cm Destinee Price MD Work Phone: [facility] 06-05-2024 15:09-0400 Body mass index (BMI) [Ratio] 36.48 kg/m2 Destinee Price MD Work Phone: [facility] 06-05-2024 15:09-0400 Body weight 71.2 kg Destinee Price MD Work Phone: [facility] 04-27-2024 14:36-0400 Body height 139.7 cm [facility] 04-27-2024 14:36-0400 Body mass index (BMI) [Ratio] 36.49 kg/m2 [facility] 04-27-2024 14:36-0400 Body weight 71.22 kg [facility] 04-19-2024 13:57-0400 Body height 139.7 cm Shayy Mcginnis MD Work Phone: [facility] 04-19-2024 13:57-0400 Diastolic blood pressure 64 mm[Hg] Shayy Mcginnis MD Work Phone: [facility] 04-19-2024 13:57-0400 Systolic blood pressure 120 mm[Hg] Shayy Mcginnis MD Work Phone: [facility] 04-05-2024 10:56-0400 Diastolic blood pressure 68 mm[Hg] Khalida Mtz MD Work Phone: [facility] 04-05-2024 10:56-0400 Systolic blood pressure 118 mm[Hg] Khalida Mtz MD Work Phone: [facility] 04-04-2024 11:30-0400 Diastolic blood pressure 60 mm[Hg] Mejia Cullen MD Work Phone: [facility] 04-04-2024 11:30-0400 Heart rate 97 /min Mejia Cullen MD Work Phone: [facility] 04-04-2024 11:30-0400 Systolic blood pressure 130 mm[Hg] Mejia Cullen MD Work Phone: [facility] 02-04-2024 09:46-0400 Diastolic blood pressure 83 mm[Hg] Olinda Luna MD Work Phone: [facility] 02-04-2024 09:46-0400 Heart rate 69 /min Olinda Luna MD Work Phone: [facility] 02-04-2024 09:46-0400 Systolic blood pressure 123 mm[Hg] Olinda Luna MD [facility] 01-03-2024 13:31-0400 Body height 139.7 cm Mejia Cullen MD Work Phone: [facility] 01-03-2024 13:31-0400 Body mass index (BMI) [Ratio] 37.19 kg/m2 Mejia Cullen MD Work Phone: [facility] 01-03-2024 13:31-0400 Body weight 72.58 kg Mejia Cullen MD Work Phone: [facility] 01-03-2024 13:31-0400 Diastolic blood pressure 85 mm[Hg] Mejia Cullen MD Work Phone: [facility] 01-03-2024 13:31-0400 Heart rate 74 /min Mejia Cullen MD Work Phone: [facility] 01-03-2024 13:31-0400 Systolic blood pressure 140 mm[Hg] Mejia Cullen MD Work Phone: [facility] 01-01-2024 11:45-0400 Heart rate 79 /min Carolynn Allegra DO Work Phone: [facility] 01-01-2024 11:45-0400 Respiratory rate 25 /min Carolynn Allegra DO Work Phone: [facility] 01-01-2024 11:45-0400 SaO2% (BldA) [Mass fraction] 93 % Carolynn Allegra DO Work Phone: [facility] 01-01-2024 11:30-0400 Diastolic blood pressure 84 mm[Hg] Carolynn Allegra DO Work Phone: [facility] 01-01-2024 11:30-0400 Systolic blood pressure 142 mm[Hg] Carolynn Allegra DO Work Phone: [facility] 12-31-2023 20:26-0400 Body temperature 96.91 [degF] Carolynn Allegra DO Work Phone: [facility] 11-17-2023 20:28-0500 Diastolic blood pressure 84 mm[Hg] Larry Eugene DO Work Phone: [facility] 11-17-2023 20:28-0500 Heart rate 74 /min Larry Eugene DO Work Phone: [facility] 11-17-2023 20:28-0500 Respiratory rate 18 /min Larry Eugene DO Work Phone: [facility] 11-17-2023 20:28-0500 SaO2% (BldA) [Mass fraction] 92 % Larry Eugene DO Work Phone: [facility] 11-17-2023 20:28-0500 Systolic blood pressure 138 mm[Hg] Larry Eugene DO Work Phone: [facility] 11-17-2023 16:08-0500 Body height 139.7 cm Larry Eugene DO Work Phone: [facility] 11-17-2023 16:08-0500 Body mass index (BMI) [Ratio] 38.35 kg/m2 Larry Eugene DO Work Phone: [facility] 11-17-2023 16:08-0500 Body temperature 97.59 [degF] Larry Eugene DO Work Phone: [facility] 11-17-2023 16:08-0500 Body weight 74.84 kg Larry Eugene DO Work Phone: [facility] 11-10-2023 10:11-0500 Body height 139.7 cm Valentina Munoz MD Work Phone: [facility] 11-10-2023 10:11-0500 Diastolic blood pressure 64 mm[Hg] Valentina Munoz MD Work Phone: [facility] 11-10-2023 10:11-0500 Systolic blood pressure 112 mm[Hg] Valentina Munoz MD Work Phone: [facility] 11-08-2023 10:34-0500 Diastolic blood pressure 83 mm[Hg] Jeanie Ayala MD Work Phone: [facility] 11-08-2023 10:34-0500 Heart rate 75 /min Jeanie Ayala MD Work Phone: [facility] 11-08-2023 10:34-0500 Systolic blood pressure 138 mm[Hg] Jeanie Ayala MD Work Phone: [facility] 10-29-2023 11:04-0500 Body height 139.7 cm Matthew Pérez MD [facility] 10-29-2023 11:04-0500 Body mass index (BMI) [Ratio] 38.28 kg/m2 Matthew Pérez MD [facility] 10-29-2023 11:04-0500 Body weight 74.71 kg Matthew Pérez MD [facility] 10-29-2023 11:04-0500 Diastolic blood pressure 80 mm[Hg] Matthew Pérez MD [facility] 10-29-2023 11:04-0500 Systolic blood pressure 130 mm[Hg] Matthew Pérez MD [facility] 10-25-2023 10:27-0500 Body height 139.7 cm Mejia Cullen MD Work Phone: [facility] 10-25-2023 10:27-0500 Body mass index (BMI) [Ratio] 37.19 kg/m2 Mejia Cullen MD Work Phone: [employer] 10-25-2023 10:27-0500 Body weight 72.58 kg Mejia Cullen MD Work Phone: [employer] 10-25-2023 10:27-0500 Diastolic blood pressure 82 mm[Hg] Mejia Cullen MD Work Phone: [employer] [employer] 10-25-2023 10:27-0500 Heart rate 72 /min Mejia Cullen MD Work Phone: [employer] 10-25-2023 10:27-0500 Systolic blood pressure 135 mm[Hg] Mejia Cullen MD Work Phone: [employer] 10-02-2023 06:59-0500 Diastolic blood pressure 90 mm[Hg] Lit Ledezma MD Work Phone: [facility] 10-02-2023 06:59-0500 Heart rate 75 /min Lit Ledezma MD Work Phone: [facility] 10-02-2023 06:59-0500 Respiratory rate 18 /min Lit Ledezma MD Work Phone: [facility] 10-02-2023 06:59-0500 SaO2% (BldA) [Mass fraction] 98 % Lit Ledezma MD Work Phone: [facility] 10-02-2023 06:59-0500 Systolic blood pressure 141 mm[Hg] Lit Ledezma MD Work Phone: [facility] 10-02-2023 01:11-0500 Body height 139.7 cm Lit Ledezma MD Work Phone: [facility] 10-02-2023 01:11-0500 Body mass index (BMI) [Ratio] 37.19 kg/m2 Lit Ledezma MD Work Phone: [facility] 10-02-2023 01:11-0500 Body temperature 98.29 [degF] Lit Ledezma MD Work Phone: [facility] 10-02-2023 01:11-0500 Body weight 72.58 kg Lit Ledezma MD Work Phone: [facility] 09-21-2023 13:33-0500 Body height 139.7 cm Everett Haywood MD Work Phone: [facility] 09-21-2023 13:33-0500 Body mass index (BMI) [Ratio] 37.19 kg/m2 Everett Haywood MD Work Phone: [facility] 09-21-2023 13:33-0500 Body weight 72.58 kg Everett Haywood MD Work Phone: [facility] Comment on above: Per pt 09-21-2023 13:33-0500 Diastolic blood pressure 86 mm[Hg] Everett Haywood MD Work Phone: [facility] 09-21-2023 13:33-0500 Heart rate 75 /min Everett Haywood MD Work Phone: [facility] 09-21-2023 13:33-0500 SaO2% (BldA) [Mass fraction] 95 % Everett Haywood MD Work Phone: [facility] 09-21-2023 13:33-0500 Systolic blood pressure 124 mm[Hg] Everett Haywood MD Work Phone: [facility] 09-16-2023 11:36-0500 Diastolic blood pressure 68 mm[Hg] Dimas Lin MD Work Phone: [facility] 09-16-2023 11:36-0500 Heart rate 62 /min Dimas Lin MD Work Phone: [facility] 09-16-2023 11:36-0500 Respiratory rate 18 /min Dimas Lin MD Work Phone: [facility] 09-16-2023 11:36-0500 SaO2% (BldA) [Mass fraction] 96 % Dimas Lin MD Work Phone: [facility] 09-16-2023 11:36-0500 Systolic blood pressure 130 mm[Hg] Dimas Lin MD Work Phone: [facility] 09-16-2023 09:10-0500 Body height 139.7 cm Dimas Lin MD Work Phone: [facility] 09-16-2023 09:10-0500 Body mass index (BMI) [Ratio] 37.19 kg/m2 Dimas Lin MD Work Phone: [facility] 09-16-2023 09:10-0500 Body temperature 97.3 [degF] Dimas Lin MD Work Phone: [facility] 09-16-2023 09:10-0500 Body weight 72.58 kg Dimas Lin MD Work Phone: [facility] 09-08-2023 [id number] Body height 137.2 cm Jeanie Ayala MD Work Phone: [facility] 09-08-2023 11:26-0500 Body mass index (BMI) [Ratio] 38.58 kg/m2 Jeanie Ayala MD Work Phone: [facility] 09-08-2023 [id number] Body weight 72.58 kg Jeanie Ayala MD Work Phone: [facility] 09-08-2023 11:26-0500 Diastolic blood pressure 80 mm[Hg] Jeanie Ayala MD Work Phone: [facility] 09-08-2023 11:26-0500 Heart rate 69 /min Jeanie Ayala MD Work Phone: [facility] 09-08-2023 11:26-0500 Systolic blood pressure 132 mm[Hg] Jeanie Ayala MD Work Phone: [facility] 08-25-2023 09:24-0500 Body height 137.2 cm Abhi Richards DO Work Phone: [facility] 08-25-2023 09:24-0500 Body mass index (BMI) [Ratio] 38.58 kg/m2 Abhi Richards DO Work Phone: [facility] 08-25-2023 09:24-0500 Body temperature 97.59 [degF] Abhi Richards DO Work Phone: [facility] 08-25-2023 09:24-0500 Body weight 72.58 kg Abhi Richards DO Work Phone: [facility] 08-25-2023 09:24-0500 Diastolic blood pressure 83 mm[Hg] Abhi Richards DO Work Phone: [facility] 08-25-2023 09:24-0500 Heart rate 76 /min Abhi Richards DO Work Phone: [facility] 08-25-2023 09:24-0500 Respiratory rate 16 /min Abhi Richards DO Work Phone: [facility] 08-25-2023 09:24-0500 SaO2% (BldA) [Mass fraction] 96 % Abhi Richards DO Work Phone: [facility] 08-25-2023 09:24-0500 Systolic blood pressure 161 mm[Hg] Abhi Richards DO Work Phone: [facility] 08-19-2023 10:48-0400 Body height 139.7 cm Valentina Chopra MD Work Phone: [facility] 08-19-2023 10:48-0400 Body mass index (BMI) [Ratio] 37.19 kg/m2 Valentina Chopra MD Work Phone: [facility] 08-19-2023 10:48-0400 Body weight 72.58 kg Valentina Chopra MD Work Phone: [facility] 08-19-2023 10:48-0400 Diastolic blood pressure 90 mm[Hg] Valentina Chopra MD Work Phone: [facility] 08-19-2023 10:48-0400 Heart rate 75 /min Valentina Chopra MD Work Phone: [facility] 08-19-2023 10:48-0400 Systolic blood pressure 142 mm[Hg] Valentina Chopra MD Work Phone: [facility] 08-16-2023 10:47-0400 Body mass index (BMI) [Ratio] 38.1 kg/m2 Matthew Pérez MD Work Phone: [facility] 08-16-2023 10:47-0400 Body weight 71.67 kg Matthew Pérez MD Work Phone: [facility] 08-16-2023 10:47-0400 Diastolic blood pressure 70 mm[Hg] Matthew Pérez MD Work Phone: [facility] 08-16-2023 10:47-0400 Systolic blood pressure 160 mm[Hg] Matthew Pérez MD Work Phone: [facility] 08-13-2023 10:56-0400 Diastolic blood pressure 60 mm[Hg] Lopez Hernandezersen DO Work Phone: [facility] 08-13-2023 10:56-0400 Heart rate 75 /min Lopez Gutierrez DO Work Phone: [facility] 08-13-2023 10:56-0400 Respiratory rate 16 /min Lopez Gutierrez DO Work Phone: [facility] 08-13-2023 10:56-0400 SaO2% (BldA) [Mass fraction] 98 % Lopez Gutierrez DO Work Phone: [facility] 08-13-2023 10:56-0400 Systolic blood pressure 144 mm[Hg] Lopez Gutierrez DO Work Phone: [facility] 08-13-2023 07:20-0400 Body height 137.2 cm Lopez Gutierrez DO Work Phone: [facility] 08-13-2023 07:20-0400 Body mass index (BMI) [Ratio] 38.27 kg/m2 Lopez Hernandezersen DO Work Phone: [facility] 08-13-2023 07:20-0400 Body temperature 97 [degF] Lopez Hernandezersen DO Work Phone: [facility] 08-13-2023 07:20-0400 Body weight 72 kg Lopez Gutierrez DO Work Phone: [facility] 08-11-2023 09:18-0400 Body height 139.7 cm Jeanie Ayala MD Work Phone: [facility] 08-11-2023 09:18-0400 Body mass index (BMI) [Ratio] 39.74 kg/m2 Jeanie Ayala MD Work Phone: [facility] 08-11-2023 09:18-0400 Body weight 77.56 kg Jeanie Ayala MD Work Phone: [facility] 08-11-2023 09:18-0400 Diastolic blood pressure 81 mm[Hg] Jeanie Ayala MD Work Phone: [facility] 08-11-2023 09:18-0400 Heart rate 72 /min Jeanie Ayala MD Work Phone: [facility] 08-11-2023 09:18-0400 Systolic blood pressure 117 mm[Hg] Jeanie Ayala MD Work Phone: [facility] 07-25-2023 14:00-0400 Diastolic blood pressure 92 mm[Hg] Caren Gilman DO Work Phone: [facility] 07-25-2023 14:00-0400 Respiratory rate 17 /min Caren Gilman DO Work Phone: [facility] 07-25-2023 14:00-0400 Systolic blood pressure 161 mm[Hg] Caren Gilman DO Work Phone: [facility] 07-24-2023 23:30-0400 Heart rate 85 /min Caren Gilman DO Work Phone: [facility] 07-24-2023 23:30-0400 SaO2% (BldA) [Mass fraction] 95 % Caren Gilman DO Work Phone: [facility] 07-24-2023 23:04-0400 Body height 139.7 cm Caren Gilman DO Work Phone: [facility] 07-24-2023 23:04-0400 Body mass index (BMI) [Ratio] 40.02 kg/m2 Caren Gilman DO Work Phone: [facility] 07-24-2023 23:04-0400 Body temperature 97.2 [degF] Caren Gilman DO Work Phone: [facility] 07-24-2023 23:04-0400 Body weight 78.11 kg Caren Gilman DO Work Phone: [facility] 07-16-2023 03:00-0400 Diastolic blood pressure 95 mm[Hg] Jeanie Tavallaee Other Phone: [facility] 07-16-2023 03:00-0400 Systolic blood pressure 160 mm[Hg] Jeanie Tavallaee Other Phone: [facility] 07-16-2023 02:30-0400 Heart rate 73 /min Jeanie Ayala Other Phone: [facility] 07-16-2023 02:30-0400 Respiratory rate 16 /min Jeanieizaiah Childsallaee Other Phone: [facility] 07-16-2023 02:30-0400 SaO2% (BldA) [Mass fraction] 95 % Jeanie Ayala Other Phone: [facility] 07-13-2023 09:18-0400 Body height 139.7 cm Jeanie Ayala MD Work Phone: [facility] 07-13-2023 09:18-0400 Body mass index (BMI) [Ratio] 41.84 kg/m2 Jeanie Ayala MD Work Phone: [facility] 07-13-2023 09:18-0400 Body weight 81.65 kg Jeanie Ayala MD Work Phone: [facility] 07-13-2023 09:18-0400 Diastolic blood pressure 88 mm[Hg] Jeanie Ayala MD Work Phone: [facility] 07-13-2023 09:18-0400 Heart rate 64 /min Jeanie Ayala MD Work Phone: [facility] 07-13-2023 09:18-0400 Systolic blood pressure 132 mm[Hg] Jeanie Ayala MD Work Phone: [facility] 06-14-2023 08:24-0400 Diastolic blood pressure 82 mm[Hg] Jeanie Ayala Other Phone: [facility] 06-14-2023 08:24-0400 Heart rate 70 /min Jeanie Ayala Other Phone: [facility] 06-14-2023 08:24-0400 Respiratory rate 16 /min Jeanie Ayala Other Phone: [facility] 06-14-2023 08:24-0400 SaO2% (BldA) [Mass fraction] 98 % Jeanie Ayala Other Phone: [facility] 06-14-2023 08:24-0400 Systolic blood pressure 158 mm[Hg] Jeanie Ayala Other Phone: [facility] 05-04-2023 09:46-0400 Body height 139.7 cm Jeanie Ayala MD Work Phone: [facility] 05-04-2023 09:46-0400 Body mass index (BMI) [Ratio] 41.84 kg/m2 Jeanie Ayala MD Work Phone: [facility] 05-04-2023 09:46-0400 Body weight 81.65 kg Jeanie Ayala MD Work Phone: [facility] 05-04-2023 09:46-0400 Diastolic blood pressure 76 mm[Hg] Jeanie Ayala MD Work Phone: [facility] 05-04-2023 09:46-0400 Heart rate 72 /min Jeanie Ayala MD Work Phone: [facility] 05-04-2023 09:46-0400 Systolic blood pressure 110 mm[Hg] Jeanie Ayala MD Work Phone: [facility] 04-30-2023 10:44-0400 Body height 139.7 cm Jeanie Delacruze Work Phone: [place] [address] [address] Work Phone: 04-30-2023 10:44-0400 Diastolic blood pressure 72 mm[Hg] Jeanie Ayala Work Phone: [place] [address] [address] Work Phone: 04-30-2023 10:44-0400 Systolic blood pressure 118 mm[Hg] Jeanie Ayala Work Phone: [place] [address] [address] Work Phone: 04-05-2023 13:20-0400 Body height 139.7 cm Jeanie Goaedarrell Work Phone: [place] [address] [address] Work Phone: 04-05-2023 13:20-0400 Body mass index (BMI) [Ratio] 40.67 kg/m2 Jeanie Ayala Work Phone: [place] [address] [address] Work Phone: 04-05-2023 13:20-0400 Body surface area Derived from formula 1.66 m2 Jeanie Delacruze Work Phone: [place] [address] [address] Work Phone: 04-05-2023 13:20-0400 Body weight 79.38 kg Jeanie Delacruze Work Phone: [place] [address] [address] Work Phone: 04-05-2023 13:20-0400 Diastolic blood pressure 82 mm[Hg] Jeanie M Tavallaee Work Phone: [address] Work Phone: 04-05-2023 13:20-0400 Systolic blood pressure 120 mm[Hg] Jeanie M Tavallaee Work Phone: [address] Work Phone: 04-01-2023 07:00-0400 Diastolic blood pressure 97 mm[Hg] Jeanie Tavallaee Other Phone: [facility] 04-01-2023 07:00-0400 Heart rate 101 /min Jeanie Tavallaee Other Phone: [facility] 04-01-2023 07:00-0400 Respiratory rate 16 /min Jeanie Tavallaee Other Phone: [facility] 04-01-2023 07:00-0400 SaO2% (BldA) [Mass fraction] 99 % Jeanie Tavallaee Other Phone: [facility] 04-01-2023 07:00-0400 Systolic blood pressure 148 mm[Hg] Jeanie Tavallaee Other Phone: [facility] 04-01-2023 02:35-0400 Body height 139.7 cm Jeanie Tavallaee Other Phone: [facility] 04-01-2023 02:35-0400 Body temperature 97.34 [degF] Jeanie Tavallaee Other Phone: [facility] 04-01-2023 02:35-0400 Body weight 79.5 kg Jeanie Tavallaee Other Phone: [facility] 02-25-2023 13:57-0400 Body height 139.7 cm Jeanie Tavallaee MD Work Phone: [facility] 02-25-2023 13:57-0400 Body mass index (BMI) [Ratio] 41.84 kg/m2 Jeanie Ayala MD Work Phone: [facility] 02-25-2023 13:57-0400 Body weight 81.65 kg Jeanie Ayala MD Work Phone: [facility] 02-25-2023 13:57-0400 Diastolic blood pressure 102 mm[Hg] Jeanie Ayala MD Work Phone: [facility] 02-25-2023 13:57-0400 Heart rate 70 /min Jeanie Ayala MD Work Phone: [facility] 02-25-2023 13:57-0400 Systolic blood pressure 178 mm[Hg] Jeanie Ayala MD Work Phone: [facility] 02-24-2023 10:45-0400 Diastolic blood pressure 90 mm[Hg] Jeanie Ayala Work Phone: [facility] Work Phone: 02-24-2023 10:45-0400 Heart rate 92 /min Jeanie Ayala Work Phone: [facility] 3 DO Work Phone: 02-24-2023 10:45-0400 SaO2% (BldA) [Mass fraction] 93 % Jeanie Ayala Work Phone: [facility] 3 DO Work Phone: 02-24-2023 10:45-0400 Systolic blood pressure 148 mm[Hg] Jeanie Ayala Work Phone: [facility] 3 DO Work Phone: 01-26-2023 11:29-0400 Body mass index (BMI) [Ratio] 40.77 kg/m2 Jeanie M Tavallaee Work Phone: [facility] 3 DO Work Phone: 01-26-2023 11:29-0400 Body surface area Derived from formula 1.66 m2 Jeanie Puma Tavallaee Work Phone: [facility] 3 DO Work Phone: 01-26-2023 11:29-0400 Body weight 79.56 kg Jeanie M Tavallaee Work Phone: [facility] 3 DO Work Phone: 01-26-2023 11:29-0400 Diastolic blood pressure 60 mm[Hg] Jeanie M Tavallaee Work Phone: [facility] 3 DO Work Phone: 01-26-2023 11:29-0400 Heart rate 88 /min Jeanieizaiah Goaee Work Phone: [facility] 3 DO Work Phone: 01-26-2023 11:29-0400 SaO2% (BldA) [Mass fraction] 94 % Jeanie Goaee Work Phone: [facility] 3 DO Work Phone: 01-26-2023 11:29-0400 Systolic blood pressure 92 mm[Hg] Jeanie Rubio Tavallaee Work Phone: [facility] 3 DO Work Phone: 01-21-2023 20:02-0400 Diastolic blood pressure 91 mm[Hg] Jeanie Tavallaee Other Phone: [facility] 01-21-2023 20:02-0400 Heart rate 84 /min Jeanie Tavallaee Other Phone: [facility] 01-21-2023 20:02-0400 Respiratory rate 16 /min Jeanie Tavallaee Other Phone: [facility] 01-21-2023 20:02-0400 SaO2% (BldA) [Mass fraction] 94 % Jeanie Tavallaee Other Phone: [facility] 01-21-2023 20:02-0400 Systolic blood pressure 138 mm[Hg] Jeanie Tavallaee Other Phone: [facility] 01-21-2023 18:32-0400 Body temperature 97.16 [degF] Jeanie Tavallaee Other Phone: [facility] 01-21-2023 18:32-0400 Body weight 79 kg Jeanie Tavallaee Other Phone: [facility] 01-08-2023 00:00-0400 Diastolic blood pressure 96 mm[Hg] Jeanie Tavallaee Other Phone: [facility] 01-08-2023 00:00-0400 Heart rate 107 /min Jeanie Tavallaee Other Phone: [facility] 01-08-2023 00:00-0400 Respiratory rate 16 /min Jeanie Tavallaee Other Phone: [facility] 01-08-2023 00:00-0400 SaO2% (BldA) [Mass fraction] 95 % Jeanie Tavallaee Other Phone: [facility] 01-08-2023 00:00-0400 Systolic blood pressure 182 mm[Hg] Jeanie Tavallaee Other Phone: [facility] 01-07-2023 19:17-0400 Body height 154.9 cm Jeanie Tavallaee Other Phone: [facility] 01-07-2023 19:17-0400 Body temperature 99.68 [degF] Jeanie Tavallaee Other Phone: [facility] 01-07-2023 19:17-0400 Body weight 72.7 kg Jeanie Tavallaee Other Phone: [facility] 01-07-2023 08:26-0400 Body temperature 100.94 [degF] Jeanie Tavallaee Other Phone: [facility] 01-07-2023 08:26-0400 Diastolic blood pressure 75 mm[Hg] Jeanie Tavallaee Other Phone: [facility] 01-07-2023 08:26-0400 Heart rate 106 /min Jeanie Tavallaee Other Phone: [facility] 01-07-2023 08:26-0400 Respiratory rate 18 /min Jeanie Tavallaee Other Phone: [facility] 01-07-2023 08:26-0400 SaO2% (BldA) [Mass fraction] 96 % Jeanie Tavallaee Other Phone: [facility] 01-07-2023 08:26-0400 Systolic blood pressure 168 mm[Hg] Jeanie Tavallaee Other Phone: [facility] 01-01-2023 05:49-0400 Body height 149.8 cm Jeanie Tavallaee Other Phone: [facility] 01-01-2023 05:49-0400 Body temperature 97.16 [degF] Jeanie Tavallaee Other Phone: [facility] 01-01-2023 05:49-0400 Body weight 77.8 kg Jeanie Tavallaee Other Phone: [facility] 01-01-2023 05:49-0400 Diastolic blood pressure 78 mm[Hg] Jeanie Tavallaee Other Phone: [facility] 01-01-2023 05:49-0400 Heart rate 77 /min Jeanie Tavallaee Other Phone: [facility] 01-01-2023 05:49-0400 Respiratory rate 20 /min Jeanie Tavallaee Other Phone: [facility] 01-01-2023 05:49-0400 SaO2% (BldA) [Mass fraction] 98 % Jeanie Tavallaee Other Phone: [facility] 01-01-2023 05:49-0400 Systolic blood pressure 161 mm[Hg] Jeanie Tavallaee Other Phone: [facility] 12-23-2022 11:21-0500 Body height 139.7 cm Jeanie M Tavallaee Work Phone: [facility] [address] Work Phone: 12-23-2022 11:21-0500 Body mass index (BMI) [Ratio] Patient Reason Not Done Jeanie M Tavallaee Work Phone: [facility] [address] Work Phone: 12-23-2022 11:21-0500 Diastolic blood pressure 76 mm[Hg] Jeanie M Tavallaee Work Phone: [facility] [address] Work Phone: 12-23-2022 11:21-0500 Heart rate 76 /min Jeanie M Tavallaee Work Phone: [facility] [address] Work Phone: 12-23-2022 11:21-0500 SaO2% (BldA) [Mass fraction] 96 % Jeanie Puma Nazlucianoaee Work Phone: [facility] [address] Work Phone: 12-23-2022 11:21-0500 Systolic blood pressure 118 mm[Hg] Jeanie Puma Nazlucianoaee Work Phone: [facility] [address] Work Phone: 12-23-2022 09:38-0500 Body height 139.7 cm Jeanieizaiah Childslucianoaee Work Phone: [facility] [address] Work Phone: 12-23-2022 09:38-0500 Body mass index (BMI) [Ratio] 41.84 kg/m2 Jeanie M Donavanaee Work Phone: [facility] [address] Work Phone: 12-23-2022 09:38-0500 Body surface area Derived from formula 1.68 m2 Jeaniemilagro Goaee Work Phone: [facility] [address] Work Phone: 12-23-2022 09:38-0500 Body temperature 97.3 [degF] Jaenie M Donavanaee Work Phone: [facility] [address] Work Phone: 12-23-2022 09:38-0500 Body weight 81.65 kg Jeanie M Tavallaee Work Phone: [facility] [address] Work Phone: 12-15-2022 10:27-0500 Diastolic blood pressure 62 mm[Hg] Jeanie M Tavallaee [facility] Work [facility]: 12-15-2022 10:27-0500 Heart rate 78 /min Jeanie M Tavallaee Work Phone[facility] Work Phone: 12-15-2022 10:27-0500 Systolic blood pressure 118 mm[Hg] Jeanie M Tavallaee Work Phone[facility] Work Phone: 12-07-2022 08:06-0500 Diastolic blood pressure 81 mm[Hg] Jeanie Tavallaee Other Phone: [facility] 12-07-2022 08:06-0500 Heart rate 81 /min Jeanie Tavallaee Other Phone: [facility] 12-07-2022 08:06-0500 Respiratory rate 18 /min Jeanie Tavallaee Other Phone: [facility] 12-07-2022 08:06-0500 SaO2% (BldA) [Mass fraction] 96 % Jeanie Tavallaee Other Phone: [facility] 12-07-2022 08:06-0500 Systolic blood pressure 120 mm[Hg] Jeanie Tavallaee Other Phone: [facility] 12-07-2022 05:00-0500 Body temperature 97.88 [degF] Jeanie Tavallaee Other Phone: [facility] 12-07-2022 03:29-0500 Body height 139.7 cm Jeanie Tavallaee Other Phone: [facility] 12-07-2022 03:29-0500 Body weight 77.2 kg Jeanie Tavallaee Other Phone: [facility] 11-26-2022 21:00-0500 Diastolic blood pressure 88 mm[Hg] Jeanie Tavallaee Other Phone: [facility] 11-26-2022 21:00-0500 Heart rate 88 /min Jeanie Tavallaee Other Phone: [facility] 11-26-2022 21:00-0500 Respiratory rate 17 /min Jeanie Tavallaee Other Phone: [facility] 11-26-2022 21:00-0500 SaO2% (BldA) [Mass fraction] 97 % Jeanie Tavallaee Other Phone: [facility] 11-26-2022 21:00-0500 Systolic blood pressure 138 mm[Hg] Jeanie Tavallaee Other Phone: [facility] 11-26-2022 17:05-0500 Body height 139.7 cm Jeanie Tavallaee Other Phone: [facility] 11-26-2022 17:05-0500 Body temperature 97.7 [degF] Jeanie Tavallaee Other Phone: [facility] 11-26-2022 17:05-0500 Body weight 81.8 kg Jeanie Tavallaee Other Phone: [facility] 11-25-2022 11:09-0500 Diastolic blood pressure 58 mm[Hg] Jeanie M Tavallaee Work Phone: [facility] [address] [place] [address] Work Phone: 11-25-2022 11:09-0500 Heart rate 90 /min Jeanie M Tavallaee Work Phone: [facility] [address] Work Phone: 11-25-2022 11:09-0500 SaO2% (BldA) [Mass fraction] 96 % Jeanieizaiah Childsallaee Work Phone: [facility] [address] [facility] Work Phone: 11-25-2022 11:09-0500 Systolic blood pressure 90 mm[Hg] Jeanie M Tavallaee Work Phone: PG-Hpnrtreuba-Ujvl and [address] [facility] Work Phone: 11-10-2022 10:25-0500 Body height 139.7 cm Jeanie Puma Childsallaee Work Phone: [facility] Work Phone: 11-10-2022 10:25-0500 Body mass index (BMI) [Ratio] 41.84 kg/m2 Jeaniemilagro Goaee Work Phone: [facility] Work Phone: 11-10-2022 10:25-0500 Body surface area Derived from formula 1.68 m2 Jeanieizaiah Childsallaee Work Phone: [facility] Work Phone: 11-10-2022 10:25-0500 Body temperature 97.4 [degF] Jeanieizaiah Goaee Work Phone: [facility] Work Phone: 11-10-2022 10:25-0500 Body weight 81.65 kg Jeanie M Tavallaee Work Phone: [facility] Work Phone: 11-05-2022 12:01-0500 Body height 139.7 cm Jeanie Puma Childsallaee Work Phone: MC-Zvtpiedsmu-Khos [facility] [address] [facility] Work Phone: 11-05-2022 12:01-0500 Body mass index (BMI) [Ratio] 40.36 kg/m2 Jeanie Puma Childsallaee Work Phone: DH-Koeayepnfn-Egqd and [address] [facility] Work Phone: 11-05-2022 12:01-0500 Body surface area Derived from formula 1.7 m2 Jeanie M Tavallaee Work Phone: HC-Ilnscwozdo-Vkpo and [address] [facility] Work Phone: 11-05-2022 12:01-0500 Body weight 81.65 kg Jeanie Puma Tavallaee Work Phone: PH-Kmsoofmard-Nkqm and [address] [facility] Work Phone: 11-05-2022 12:01-0500 Diastolic blood pressure 74 mm[Hg] Jeanie Puma Tavallaee Work Phone: GD-Ohvsqkqpnm-Gcma and [address] [facility] Work Phone: 11-05-2022 12:01-0500 Heart rate 85 /min Jeanie M Tavallaee Work Phone: YC-Uqglczvyut-Ywjj and [address] [facility] Work Phone: 11-05-2022 12:01-0500 SaO2% (BldA) [Mass fraction] 97 % Jeanie M Tavallaee Work Phone: QH-Atvppjohxm-Vefz and [address] [facility] Work Phone: 11-05-2022 12:01-0500 Systolic blood pressure 120 mm[Hg] Jeanie M Tavallaee Work Phone: PU-Zrcpuoamop-Ohwd and [address] [facility] Work Phone: 09-16-2022 10:11-0500 Body temperature 97.3 [degF] Jeanie Puma Tavallaee Work Phone: -[facility] Work Phone: 09-15-2022 09:30-0500 Body height 142.24 cm Jeanie M Tavallaee Work Phone: [facility] Work Phone: 09-15-2022 09:30-0500 Body mass index (BMI) [Ratio] 40.58 kg/m2 Jeanie Puma Tavallaee Work Phone: [facility] Work Phone: 09-15-2022 09:30-0500 Body surface area Derived from formula 1.7 m2 Jeanie Puma Tavallaee Work Phone: [facility] Work Phone: 09-15-2022 09:30-0500 Body weight 82.1 kg Jeanie Puma Tavallaee Work Phone: [facility] Work Phone: 09-15-2022 09:30-0500 Diastolic blood pressure 82 mm[Hg] Jeanie M Tavallaee Work Phone: [facility] Work Phone: 09-15-2022 09:30-0500 Heart rate 88 /min Jeanie Puma Tavallaee Work Phone: [facility] Work Phone: 09-15-2022 09:30-0500 Systolic blood pressure 126 mm[Hg] Jeanie M Tavallaee Work Phone: [facility] Work Phone: 08-24-2022 12:00-0500 Diastolic blood pressure 97 mm[Hg] Jeanie Tavallaee Other Phone: [facility] 08-24-2022 12:00-0500 Heart rate 78 /min Jeanie Tavallaee Other Phone: [facility] 08-24-2022 12:00-0500 Respiratory rate 17 /min Jeanie Tavallaee Other Phone: [facility] 08-24-2022 12:00-0500 SaO2% (BldA) [Mass fraction] 96 % Jeanie Tavallaee Other Phone: [facility] 08-24-2022 12:00-0500 Systolic blood pressure 155 mm[Hg] Jeanie Tavallaee Other Phone: [facility] 08-24-2022 09:23-0500 Body height 139.7 cm Jeanie Tavallaee Other Phone: [facility] 08-24-2022 09:23-0500 Body temperature 97.7 [degF] Jeanie Tavallaee Other Phone: [facility] 08-24-2022 09:23-0500 Body weight 81.8 kg Jeanie Tavallaee Other Phone: [facility] 08-19-2022 10:23-0400 Body height 142.24 cm Jeanie M Tavallaee Work Phone: [facility] 300 Work Phone: 08-19-2022 10:23-0400 Body mass index (BMI) [Ratio] 40.58 kg/m2 Jeanie M Tavallaee Work Phone: [facility] and [facility] 300 Work Phone: 08-19-2022 10:23-0400 Body surface area Derived from formula 1.7 m2 Jeanie M Tavallaee Work Phone: [facility] 300 Work Phone: 08-19-2022 10:23-0400 Body temperature 97.8 [degF] Jeanie M Tavallaee Work Phone: [facility] 300 Work Phone: 08-19-2022 10:23-0400 Body weight 82.1 kg Jeanie M Tavallaee Work Phone: [facility] 300 Work Phone: 08-18-2022 09:22-0400 Body height 142.24 cm Jeanie Puma Tavallaee Work Phone: [facility] Work Phone: 08-18-2022 09:22-0400 Body mass index (BMI) [Ratio] 40.58 kg/m2 Jeanie Puma Tavallaee Work Phone: [facility] Work Phone: 08-18-2022 09:22-0400 Body surface area Derived from formula 1.7 m2 Jeanie Puma Tavallaee Work Phone: [facility] Work Phone: 08-18-2022 09:22-0400 Body weight 82.1 kg Jeanie Puma Tavallaee Work Phone: [facility] Work Phone: 08-18-2022 09:22-0400 Diastolic blood pressure 84 mm[Hg] Jeanie Puma Tavallaee Work Phone: [facility] Work Phone: 08-18-2022 09:22-0400 Heart rate 90 /min Jeanie Puma Tavallaee Work Phone: [facility] Work Phone: 08-18-2022 09:22-0400 SaO2% (BldA) [Mass fraction] 97 % Jeanie Puma Tavallaee Work Phone: [facility] Work Phone: 08-18-2022 09:22-0400 Systolic blood pressure 129 mm[Hg] Jeanie Puma Tavallaee Work Phone: [facility] Work Phone: 07-21-2022 09:16-0400 Body mass index (BMI) [Ratio] Medical Reason Not Done Jeanie Puma Tavallaee Work Phone: [facility] Work Phone: 07-21-2022 09:16-0400 Diastolic blood pressure 93 mm[Hg] Jeanie M Tavallaee Work Phone: [facility] Work Phone: 07-21-2022 09:16-0400 Heart rate 101 /min Jeanie M Tavallaee Work Phone: [facility] Work Phone: 07-21-2022 09:16-0400 Systolic blood pressure 143 mm[Hg] Jeanie M Tavallaee Work Phone: [facility] Work Phone: 07-15-2022 13:07-0400 Body height 142.24 cm Jeanie M Tavallaee Work Phone: [facility] 300 Work Phone: 07-15-2022 13:07-0400 Body temperature 98.2 [degF] Jeanie M Tavallaee Work Phone: [facility] 300 Work Phone: 06-30-2022 13:05-0400 Body height 142.24 cm Jeanie M Tavallaee Work Phone: [facility] Work Phone: 06-30-2022 13:05-0400 Diastolic blood pressure 81 mm[Hg] Jeanie M Tavallaee Work Phone: [facility] Work Phone: 06-30-2022 13:05-0400 Heart rate 101 /min Jeanie M Tavallaee Work Phone: [facility] Work Phone: 06-30-2022 13:05-0400 Systolic blood pressure 122 mm[Hg] Jeanie M Tavallaee Work Phone: [facility] Work Phone: 05-10-2022 06:30-0400 Diastolic blood pressure 86 mm[Hg] Jeanie Tavallaee Other Phone: [facility] 05-10-2022 06:30-0400 Heart rate 70 /min Jeanie Tavallaee Other Phone: [facility] 05-10-2022 06:30-0400 Respiratory rate 16 /min Jeanie Tavallaee Other Phone: [facility] 05-10-2022 06:30-0400 SaO2% (BldA) [Mass fraction] 95 % Jeanie Tavallaee Other Phone: [facility] 05-10-2022 06:30-0400 Systolic blood pressure 158 mm[Hg] Jeanie Tavallaee Other Phone: [facility] 05-05-2022 13:45-0400 Body height 142.24 cm Jeanie M Tavallaee Work Phone: [facility] Work Phone: 05-05-2022 13:45-0400 Body mass index (BMI) [Ratio] 40.8 kg/m2 Jeanie M Tavallaee Work Phone: [facility] Work Phone: 05-05-2022 13:45-0400 Body surface area Derived from formula 1.71 m2 Jeanie M Tavallaee Work Phone: [facility] Work Phone: 05-05-2022 13:45-0400 Body weight 82.55 kg Jeanie M Tavallaee Work Phone: [facility] Work Phone: 05-05-2022 13:45-0400 Diastolic blood pressure 80 mm[Hg] Jeanie M Tavallaee Work Phone: [facility] Work Phone: 05-05-2022 13:45-0400 Heart rate 80 /min Jeanie M Tavallaee Work Phone: [facility] Work Phone: 05-05-2022 13:45-0400 Systolic blood pressure 108 mm[Hg] Jeanie M Tavallaee Work Phone: [facility] Work Phone: 04-06-2022 12:40-0400 Body height 142.24 cm Jeanie M Tavallaee Work Phone: [facility] Work Phone: 04-06-2022 12:40-0400 Body mass index (BMI) [Ratio] 40.8 kg/m2 Jeanie M Tavallaee Work Phone: [facility] Work Phone: 04-06-2022 12:40-0400 Body surface area Derived from formula 1.71 m2 Jeanie M Tavallaee Work Phone: [facility] Work Phone: 04-06-2022 12:40-0400 Body weight 82.56 kg Jeanie M Tavallaee Work Phone: [facility] Work Phone: 04-06-2022 12:40-0400 Diastolic blood pressure 80 mm[Hg] Jeanie M Tavallaee Work Phone: [facility] Work Phone: 04-06-2022 12:40-0400 Heart rate 82 /min Jeanie M Tavallaee Work Phone: [facility] Work Phone: 04-06-2022 12:40-0400 SaO2% (BldA) [Mass fraction] 96 % Jeanie Puma Tavallaee Work Phone: [facility] Work Phone: 04-06-2022 12:40-0400 Systolic blood pressure 108 mm[Hg] Jeanie Puma Tavallaee Work Phone: [facility] Work Phone: 03-04-2022 11:54-0400 Body height 142.24 cm Jeanie Puma Childsallaee Work Phone: [facility] Work Phone: 03-04-2022 11:54-0400 Body mass index (BMI) [Ratio] 41.03 kg/m2 Jeanie Puma Childsallaee Work Phone: [facility] Work Phone: 03-04-2022 11:54-0400 Body surface area Derived from formula 1.71 m2 Jeanie Puma Childsallaee Work Phone: [facility] Work Phone: 03-04-2022 11:54-0400 Body weight 83 kg Jeanie Puma Childsallaee Work Phone: [facility] Work Phone: 03-04-2022 11:54-0400 Diastolic blood pressure 76 mm[Hg] Jeanie Puma Tavallaee Work Phone: [facility] Work Phone: 03-04-2022 11:54-0400 Heart rate 76 /min Jeanie Puma Tavallaee Work Phone: [facility] Work Phone: 03-04-2022 11:54-0400 Systolic blood pressure 120 mm[Hg] Jeanie Puma Tavallaee Work Phone: [facility] Work Phone: 02-04-2022 11:27-0400 Body height 142.24 cm Jeanie Puma Tavallaee Work Phone: [facility] Work Phone: 02-04-2022 11:27-0400 Body mass index (BMI) [Ratio] 41.03 kg/m2 Jeanie M Tavallaee Work Phone: [facility] Work Phone: 02-04-2022 11:27-0400 Body surface area Derived from formula 1.71 m2 Jeanie Puma Tavallaee Work Phone: [facility] Work Phone: 02-04-2022 11:27-0400 Body weight 83.01 kg Jeanie Puma Tavallaee Work Phone: [facility] Work Phone: 02-04-2022 11:27-0400 Diastolic blood pressure 78 mm[Hg] Jeanie Puma Tavallaee Work Phone: [facility] Work Phone: 02-04-2022 11:27-0400 Heart rate 86 /min Jeanie Puma Tavallaee Work Phone: [facility] Work Phone: 02-04-2022 11:27-0400 Systolic blood pressure 108 mm[Hg] Jeanie M Tavallaee Work Phone: [facility] Work Phone: 01-07-2022 11:48-0400 Body height 142.24 cm Jeanie M Tavallaee Work Phone: [facility] Work Phone: 01-07-2022 11:48-0400 Body mass index (BMI) [Ratio] 41.25 kg/m2 Jeanie M Tavallaee Work Phone: [facility] Work Phone: 01-07-2022 11:48-0400 Body surface area Derived from formula 1.71 m2 Jeanie M Tavallaee Work Phone: [facility] Work Phone: 01-07-2022 11:48-0400 Body weight 83.46 kg Jeanie M Tavallaee Work Phone: [facility] Work Phone: 01-07-2022 11:48-0400 Diastolic blood pressure 76 mm[Hg] Jeanie M Tavallaee Work Phone: [facility] Work Phone: 01-07-2022 11:48-0400 Heart rate 94 /min Jeanie M Tavallaee Work Phone: [facility] Work Phone: 01-07-2022 11:48-0400 Systolic blood pressure 110 mm[Hg] Jeanie M Tavallaee Work Phone: [facility] Work Phone: 01-07-2022 11:48-0400 21 1 Jeanie M Tavallaee Work Phone: [facility] Work Phone: Comment on above: [id number] 12-17-2021 13:41-0500 Body height 142.24 cm Jeanie M Tavallaee Work Phone: [facility] Work Phone: 12-17-2021 13:41-0500 Body mass index (BMI) [Ratio] 40.58 kg/m2 Jeanie M Tavallaee Work Phone: [facility] Work Phone: 12-17-2021 13:41-0500 Body surface area Derived from formula 1.7 m2 Jeanie Puma Tavallaee Work Phone: [facility] Work Phone: 12-17-2021 13:41-0500 Body weight 82.1 kg Jeanie Puma Tavallaee Work Phone: [facility] Work Phone: 12-17-2021 13:41-0500 Diastolic blood pressure 84 mm[Hg] Jeanie Puma Tavallaee Work Phone: [facility] Work Phone: 12-17-2021 13:41-0500 Heart rate 90 /min Jeanie Puma Tavallaee Work Phone: [facility] Work Phone: 12-17-2021 13:41-0500 Systolic blood pressure 104 mm[Hg] Jeanie Puma Tavallaee Work Phone: [facility] Work Phone: 12-13-2021 15:00-0500 Diastolic blood pressure 82 mm[Hg] Jeanie Tavallaee Other Phone: [facility] 12-13-2021 15:00-0500 Heart rate 93 /min Jeanie Tavallaee Other Phone: [facility] 12-13-2021 15:00-0500 Respiratory rate 16 /min Jeanie Tavallaee Other Phone: [facility] 12-13-2021 15:00-0500 SaO2% (BldA) [Mass fraction] 92 % Jeanie Tavallaee Other Phone: [facility] 12-13-2021 15:00-0500 Systolic blood pressure 136 mm[Hg] Jeanie Tavallaee Other Phone: [facility] 12-13-2021 12:34-0500 Body height 139.7 cm Jeanie Tavallaee Other Phone: [facility] 12-13-2021 12:34-0500 Body temperature 98.6 [degF] Jeanie Tavallaee Other Phone: [facility] 12-13-2021 12:34-0500 Body weight 77.3 kg Jeanie Tavallaee Other Phone: [facility] 12-08-2021 11:43-0500 Diastolic blood pressure 72 mm[Hg] Jeanie M Tavallaee Work Phone: [facility] Work Phone: 12-08-2021 11:43-0500 Heart rate 84 /min Jeanie M Tavallaee Work Phone: [facility] Work Phone: 12-08-2021 11:43-0500 Systolic blood pressure 112 mm[Hg] Jeanie M Tavallaee Work Phone: [facility] Work Phone: 12-08-2021 11:42-0500 Body height 142.24 cm Jeanie M Tavallaee Work Phone: [facility] Work Phone: 12-08-2021 11:42-0500 Body mass index (BMI) [Ratio] 39.91 kg/m2 Jeanie M Tavallaee Work Phone: [facility] Work Phone: 12-08-2021 11:42-0500 Body surface area Derived from formula 1.69 m2 Jeanie M Tavallaee Work Phone: [facility] Work Phone: 12-08-2021 11:42-0500 Body weight 80.74 kg Jeanie M Tavallaee Work Phone: [facility] Work Phone: 12-05-2021 11:45-0500 Diastolic blood pressure 69 mm[Hg] Jeanie Tavallaee Other Phone: [facility] 12-05-2021 11:45-0500 Heart rate 88 /min Jeanie Tavallaee Other Phone: [facility] 12-05-2021 11:45-0500 Respiratory rate 16 /min Jeanie Tavallaee Other Phone: [facility] 12-05-2021 11:45-0500 SaO2% (BldA) [Mass fraction] 95 % Jeanie Tavallaee Other Phone: [facility] 12-05-2021 11:45-0500 Systolic blood pressure 136 mm[Hg] Jeanie Tavallaee Other Phone: [facility] 12-05-2021 07:08-0500 Body height 139.7 cm Jeanie Tavallaee Other Phone: [facility] 12-05-2021 07:08-0500 Body temperature 97.88 [degF] Jeanie Tavallaee Other Phone: [facility] 12-05-2021 07:08-0500 Body weight 77.3 kg Jeanie Tavallaee Other Phone: [facility] 11-28-2021 00:30-0500 Diastolic blood pressure 67 mm[Hg] Jeanie Tavallaee Other Phone: [facility] 11-28-2021 00:30-0500 Heart rate 94 /min Jeanie Tavallaee Other Phone: [facility] 11-28-2021 00:30-0500 Respiratory rate 16 /min Jeanie Tavallaee Other Phone: [facility] 11-28-2021 00:30-0500 SaO2% (BldA) [Mass fraction] 95 % Jeanie Tavallaee Other Phone: [facility] 11-28-2021 00:30-0500 Systolic blood pressure 122 mm[Hg] Jeanie Tavallaee Other Phone: [facility] 11-27-2021 21:01-0500 Body temperature 98.6 [degF] Jeanie Tavallaee Other Phone: [facility] 08-12-2021 10:36-0400 Diastolic blood pressure 70 mm[Hg] Jeanie M Tavallaee Work Phone: [facility] Work Phone: 08-12-2021 10:36-0400 Systolic blood pressure 110 mm[Hg] Jeanie M Tavallaee Work Phone: [facility] Work Phone: 08-12-2021 10:22-0400 Body height 142.24 cm Jeanie M Tavallaee Work Phone: [facility] Work Phone: 08-12-2021 10:22-0400 Diastolic blood pressure 82 mm[Hg] Jeanie M Tavallaee Work Phone: [facility] Work Phone: 08-12-2021 10:22-0400 Heart rate 86 /min Jeanie M Tavallaee Work Phone: [facility] Work Phone: 08-12-2021 10:22-0400 Systolic blood pressure 118 mm[Hg] Jeanie M Tavallaee Work Phone: [facility] Work Phone: 07-17-2021 10:51-0400 Body height 142.24 cm Jeanie Puma Tavallaee Work Phone: [facility] Work Phone: 07-17-2021 10:51-0400 Body mass index (BMI) [Ratio] 39.91 kg/m2 Jeanie Puma Tavallaee Work Phone: [facility] Work Phone: 07-17-2021 10:51-0400 Body surface area Derived from formula 1.69 m2 Jeanie Puma Tavallaee Work Phone: [facility] Work Phone: 07-17-2021 10:51-0400 Body weight 80.74 kg Jeanie M Tavallaee Work Phone: [facility] Work Phone: 07-17-2021 10:51-0400 Diastolic blood pressure 84 mm[Hg] Jeanie Puma Tavallaee Work Phone: [facility] Work Phone: 07-17-2021 10:51-0400 Heart rate 68 /min Jeanie M Tavallaee Work Phone: [facility] Work Phone: 07-17-2021 10:51-0400 Systolic blood pressure 130 mm[Hg] Jeanie Puma Tavallaee Work Phone: [facility] Work Phone: 07-14-2021 12:55-0400 Body height 142.24 cm Jeanie Puma Tavallaee Work Phone: [address] Work Phone: 07-14-2021 12:55-0400 Body mass index (BMI) [Ratio] 39.91 kg/m2 Jeanie Puma Childsallaee Work Phone: [place] [address] [employer] Work Phone: 07-14-2021 12:55-0400 Body surface area Derived from formula 1.69 m2 Jeanie Puma Tavallaee Work Phone: [place] [address] [facility] Work Phone: 07-14-2021 12:55-0400 Body temperature 97.1 [degF] Jeanie Puma Tavallaee Work Phone: [place] [address] [facility] Work Phone: 07-14-2021 12:55-0400 Body weight 80.74 kg Jeanie Puma Tavallaee Work Phone: [address] Work Phone: 07-14-2021 12:55-0400 Diastolic blood pressure 76 mm[Hg] Jeanie M Tavallaee Work Phone: [address] Work Phone: 07-14-2021 12:55-0400 Systolic blood pressure 126 mm[Hg] Jeanie Puma Tavallaee Work Phone: [address] Work Phone: 07-10-2021 09:30-0400 Diastolic blood pressure 69 mm[Hg] Jeanie Tavallaee Other Phone: [facility] 07-10-2021 09:30-0400 Heart rate 79 /min Jeanie Tavallaee Other Phone: [facility] 07-10-2021 09:30-0400 SaO2% (BldA) [Mass fraction] 94 % Jeanie Tavallaee Other Phone: [facility] 07-10-2021 09:30-0400 Systolic blood pressure 105 mm[Hg] Jeanie Tavallaee Other Phone: [facility] 07-10-2021 08:18-0400 Body temperature 97.88 [degF] Jeanie Tavallaee Other Phone: [facility] 07-10-2021 08:18-0400 Respiratory rate 20 /min Jeanie Tavallaee Other Phone: [facility] 07-01-2021 10:30-0400 Body height 142.24 cm Jeanie Puma Tavallaee Work Phone: [place] [address] [facility] Work Phone: 07-01-2021 10:30-0400 Body mass index (BMI) [Ratio] 40.08 kg/m2 Jeanie Puma Tavallaee Work Phone: [place] [address] [facility] Work Phone: 07-01-2021 10:30-0400 Body surface area Derived from formula 1.69 m2 Jeanie Puma Tavallaee Work Phone: [place] [address] [facility] Work Phone: 07-01-2021 10:30-0400 Body temperature 98 [degF] Jeanie Puma Tavallaee Work Phone: [place] [address] [facility] Work Phone: 07-01-2021 10:30-0400 Body weight 81.1 kg Jeanie Puma Tavallaee Work Phone: [place] [address] [facility] Work Phone: 07-01-2021 10:30-0400 Diastolic blood pressure 84 mm[Hg] Jeanie Puma Tavallaee Work Phone: [place] [address] [facility] Work Phone: 07-01-2021 10:30-0400 Systolic blood pressure 120 mm[Hg] Jeanie M Tavallaee Work Phone: [address] Work Phone: 06-24-2021 11:39-0400 Body height 142.24 cm Jeanie M Tavallaee Work Phone: [facility] Work Phone: 06-24-2021 11:39-0400 Body mass index (BMI) [Ratio] 40.13 kg/m2 Jeanie M Tavallaee Work Phone: [facility] Work Phone: 06-24-2021 11:39-0400 Body surface area Derived from formula 1.69 m2 Jeanie M Tavallaee Work Phone: [facility] Work Phone: 06-24-2021 11:39-0400 Body weight 81.19 kg Jeanie M Tavallaee Work Phone: [facility] Work Phone: 06-24-2021 11:39-0400 Diastolic blood pressure 74 mm[Hg] Jeanie M Tavallaee Work Phone: [facility] Work Phone: 06-24-2021 11:39-0400 Heart rate 94 /min Jeanie M Tavallaee Work Phone: [facility] Work Phone: 06-24-2021 11:39-0400 Systolic blood pressure 98 mm[Hg] Jeanie M Tavallaee Work Phone: [facility] Work Phone: 05-27-2021 13:17-0400 Body height 142.2 cm Jeanie Tavallaee Other Phone: [facility] 05-27-2021 13:17-0400 Body temperature 97.88 [degF] Jeanie Tavallaee Other Phone: [facility] 05-27-2021 13:17-0400 Diastolic blood pressure 79 mm[Hg] Jeanie Tavallaee Other Phone: [facility] 05-27-2021 13:17-0400 Heart rate 105 /min Jeanie Tavallaee Other Phone: [facility] 05-27-2021 13:17-0400 Systolic blood pressure 120 mm[Hg] Jeanie Tavallaee Other Phone: [facility] 05-19-2021 13:02-0400 Body height 142.24 cm Jeanie M Tavallaee Work Phone: [facility] Work Phone: 05-19-2021 13:02-0400 Body mass index (BMI) [Ratio] 40.13 kg/m2 Jeanie M Tavallaee Work Phone: [facility] [facility] Work Phone: 05-19-2021 13:02-0400 Body surface area Derived from formula 1.69 m2 Jeanie M Tavallaee Work Phone: [facility] Internal Medicine Work Phone: 05-19-2021 13:02-0400 Body weight 81.19 kg Jeanie M Tavallaee Work Phone: [facility] Internal Medicine Work Phone: 05-19-2021 13:02-0400 Diastolic blood pressure 78 mm[Hg] Jeanie M Tavallaee Work Phone: [facility] Internal Medicine Work Phone: 05-19-2021 13:02-0400 Heart rate 92 /min Jeanie M Tavallaee Work Phone: [facility] Internal Medicine Work Phone: 05-19-2021 13:02-0400 Systolic blood pressure 134 mm[Hg] Jeanie M Tavallaee Work Phone: [facility] Internal Medicine Work Phone: 05-18-2021 10:36-0400 Diastolic blood pressure 91 mm[Hg] Jeanie Tavallaee Other Phone: [facility] 05-18-2021 10:36-0400 Heart rate 96 /min Jeanie Tavallaee Other Phone: [facility] 05-18-2021 10:36-0400 Respiratory rate 18 /min Jeanie Tavallaee Other Phone: [facility] 05-18-2021 10:36-0400 SaO2% (BldA) [Mass fraction] 97 % Jeanie Tavallaee Other Phone: [facility] 05-18-2021 10:36-0400 Systolic blood pressure 131 mm[Hg] Jeanie Tavallaee Other Phone: [facility] 05-18-2021 05:13-0400 Body height 142.2 cm Jeanie Tavallaee Other Phone: [facility] 05-18-2021 05:13-0400 Body temperature 98.96 [degF] Jeanie Tavallaee Other Phone: [facility] 05-18-2021 05:13-0400 Body weight 74 kg Jeanie Tavallaee Other Phone: [facility] 05-15-2021 21:00-0400 Diastolic blood pressure 53 mm[Hg] Jeanie Tavallaee Other Phone: [facility] 05-15-2021 21:00-0400 Heart rate 94 /min Jeanie Tavallaee Other Phone: [facility] 05-15-2021 21:00-0400 Respiratory rate 18 /min Jeanie Tavallaee Other Phone: [facility] 05-15-2021 21:00-0400 SaO2% (BldA) [Mass fraction] 95 % Jeanie Tavallaee Other Phone: [facility] 05-15-2021 21:00-0400 Systolic blood pressure 110 mm[Hg] Jeanie Tavallaee Other Phone: [facility] 05-15-2021 15:07-0400 Body height 144.7 cm Jeanie Tavallaee Other Phone: [facility] 05-15-2021 15:07-0400 Body temperature 99.14 [degF] Jeanie Tavallaee Other Phone: [facility] 05-15-2021 15:07-0400 Body weight 77.3 kg Jeanie Tavallaee Other Phone: [facility] 05-14-2021 16:30-0400 Diastolic blood pressure 62 mm[Hg] Jeanie Tavallaee Other Phone: [facility] 05-14-2021 16:30-0400 Heart rate 90 /min Jeanie Tavallaee Other Phone: [facility] 05-14-2021 16:30-0400 Respiratory rate 16 /min Jeanie Tavallaee Other Phone: [facility] 05-14-2021 16:30-0400 SaO2% (BldA) [Mass fraction] 96 % Jeanie Tavallaee Other Phone: [facility] 05-14-2021 16:30-0400 Systolic blood pressure 116 mm[Hg] Jeanie Tavallaee Other Phone: [facility] 05-14-2021 12:07-0400 Body temperature 99.14 [degF] Jeanie Tavallaee Other Phone: [facility] 05-14-2021 12:07-0400 Body weight 75 kg Jeanie Tavallaee Other Phone: [facility] 04-08-2021 11:29-0400 Body height 142.24 cm Jeanie M Tavallaee Work Phone: [facility] Medicine Work Phone: 04-08-2021 11:29-0400 Body mass index (BMI) [Ratio] 38.78 kg/m2 Jeanie M Tavallaee Work Phone: [facility] Internal Medicine Work Phone: 04-08-2021 11:29-0400 Body surface area Derived from formula 1.67 m2 Jeanie M Tavallaee Work Phone: [facility] Medicine Work Phone: 04-08-2021 11:29-0400 Body weight 78.47 kg Jeanie M Tavallaee Work Phone: [facility] Medicine Work Phone: 04-08-2021 11:29-0400 Diastolic blood pressure 80 mm[Hg] Jeanie M Tavallaee Work Phone: [facility] Internal Medicine Work Phone: 04-08-2021 11:29-0400 Heart rate 100 /min Jeanie M Tavallaee Work Phone: [facility] Medicine Work Phone: 04-08-2021 11:29-0400 Systolic blood pressure 124 mm[Hg] Jeanie M Tavallaee Work Phone: [facility] Medicine Work Phone: 04-07-2021 10:08-0400 Body height 142.24 cm Jeanie Goaee Work Phone: [place] [id number] [employer] Work Phone: 04-07-2021 10:08-0400 Body temperature 98 [degF] Jeanie Goaee Work Phone: [place] [address] [employer] Work Phone: 04-07-2021 10:08-0400 Diastolic blood pressure 82 mm[Hg] Jeanie Delacruze Work Phone: [place] [address] [employer] Work Phone: 04-07-2021 10:08-0400 Systolic blood pressure 122 mm[Hg] Jeanie Goaee Work Phone: [place] [address] [place] Work Phone: 12-18-2020 13:00-0500 BP Diastolic 73 mm[Hg] Julian Galeana [facility] 12-18-2020 13:00-0500 BP Systolic 107 mm[Hg] Julian Suazoo [facility] 12-18-2020 13:00-0500 Height 144.8 cm Julian Galeana [facility] 12-18-2020 13:00-0500 Pulse (Heart Rate) 85 /min Julian Suazoo [facility] 12-18-2020 13:00-0500 Pulse Oximetry 95 % Julian Suazoo [facility] 12-03-2020 11:56-0500 Body Temperature 98.8 [degF] Christiano [facility] 12-03-2020 11:56-0500 BP Diastolic 73 mm[Hg] Christiano [facility] 12-03-2020 11:56-0500 BP Systolic 106 mm[Hg] Christiano [facility] 12-03-2020 11:56-0500 Pulse (Heart Rate) 96 /min Christiano [facility] 12-03-2020 11:56-0500 Pulse Oximetry 98 % [facility] 12-03-2020 11:56-0500 Respiratory Rate 16 /min [facility] 12-01-2020 18:34-0500 BMI (Body Mass Index) 35.78 kg/m2 [facility] 12-01-2020 18:34-0500 Body weight 75 kg [facility] 12-01-2020 18:34-0500 Height 144.8 cm [facility] 06-18-2020 15:25-0400 BP Diastolic 88 mm[Hg] Urban DOLAN-Neurology-[facility] ur ban [facility] Movement [...] 06-18-2020 15:19-0400 Respiratory Rate 18 /min Urban Rajwinder DF-Zaudwcrmu-Mv [facility] [address] [facility] Work Phone: 09-25-2019 12:03-0500 BMI (Body Mass Index) 39.01 kg/m2 Anel Velasquez [facility] [address] [place] [facility] Work Phone: 09-25-2019 12:03-0500 Body weight 78.93 kg Anel Velasquez [employer] [address] [facility] Work Phone: 09-25-2019 12:03-0500 BP Diastolic 72 mm[Hg] Anel Velasquez [facility] [address] [facility] Work Phone: 09-25-2019 12:03-0500 BP Systolic 110 mm[Hg] Anel Velasquez [employer] [address] [facility] Work Phone: 09-25-2019 12:03-0500 BSA (Body Surface Area) 1.67 m2 Anel Velasquez [employer] [address] [facility] Work Phone: 09-25-2019 12:03-0500 Height 142.24 cm Anel Velasquez [employer] [address] [facility] Work Phone: 08-07-2019 13:01-0400 BMI (Body Mass Index) 40.11 kg/m2 Anel Velasquez [employer] [address] [facility] Work Phone: 08-07-2019 13:01-0400 Body weight 78.61 kg Anel Velasquez [employer] [address] [facility] Work Phone: 08-07-2019 13:01-0400 BP Diastolic 70 mm[Hg] Anel Velasquez [facility] [address] [facility] Work Phone: 08-07-2019 13:01-0400 BP Systolic 106 mm[Hg] Anel Velasquez [employer] [address] [facility] Work Phone: 08-07-2019 13:010400 BSA (Body Surface Area) 1.65 m2 Anel Velasquez [facility] [address] [employer] Work Phone: 08-07-2019 13:010400 Height 140 cm Anel [facility] [employer] Work Phone: 03-16-2019 12:13-0400 Body Temperature 98.6 [degF] [facility] 03-16-2019 12:13-0400 BP Diastolic 79 mm[Hg] [facility] 03-16-2019 12:13-0400 BP Systolic 138 mm[Hg] [facility] 03-16-2019 12:13-0400 Pulse (Heart Rate) 73 /min [facility] 03-16-2019 12:13-0400 Pulse Oximetry 97 % [facility] 03-16-2019 12:13-0400 Respiratory Rate 14 /min [facility] 03-16-2019 06:46-0400 BMI (Body Mass Index) 33.85 kg/m2 [facility] 03-16-2019 06:46-0400 Height 142.2 cm [facility] 03-16-2019 06:46-0400 Weight 68.49 kg [facility] 03-08-2019 09:03-0400 BMI (Body Mass Index) 35.1 kg/m2 [facility] 03-08-2019 09:03-0400 Body Temperature 98.1 [degF] [facility] 03-08-2019 09:03-0400 BP Diastolic 77 mm[Hg] [facility] 03-08-2019 09:03-0400 BP Systolic 109 mm[Hg] [facility] 03-08-2019 09:03-0400 Height 139.7 cm [facility] 03-08-2019 09:03-0400 Pulse (Heart Rate) 93 /min [facility] 03-08-2019 09:03-0400 Pulse Oximetry 98 % [facility] 03-08-2019 09:03-0400 Respiratory Rate 18 /min [facility] 03-08-2019 09:03-0400 Weight 68.49 kg [facility] 03-01-2019 08:33-0400 BMI (Body Mass Index) 33.96 kg/m2 [facility] 03-01-2019 08:33-0400 Body Temperature 98.01 [degF] [facility] 03-01-2019 08:33-0400 BP Diastolic 78 mm[Hg] [facility] 03-01-2019 08:33-0400 BP Systolic 112 mm[Hg] [facility] 03-01-2019 08:33-0400 Height 142 cm [facility] 03-01-2019 08:33-0400 Pulse (Heart Rate) 93 /min [facility] 03-01-2019 08:33-0400 Pulse Oximetry 98 % [facility] 03-01-2019 08:33-0400 Respiratory Rate 18 /min [facility] 03-01-2019 08:33-0400 Weight 68.49 kg [facility] 12-26-2018 08:52-0400 BMI (Body Mass Index) 35.11 kg/m2 [facility] 12-26-2018 08:52-0400 Body weight 70.8 kg [facility] 12-26-2018 08:52-0400 BP Diastolic 74 mm[Hg] [facility] 12-26-2018 08:52-0400 BP Systolic 114 mm[Hg] [facility] 12-26-2018 08:52-0400 Height 142 cm [facility] 12-26-2018 08:52-0400 Pulse (Heart Rate) 87 /min [facility] 12-26-2018 08:52-0400 Pulse Oximetry 95 % [facility] 11-22-2018 14:30-0500 BMI (Body Mass Index) 31.51 kg/m2 [facility] 11-22-2018 14:30-0500 Body Temperature 98.1 [degF] [facility] 11-22-2018 14:30-0500 BP Diastolic 88 mm[Hg] [facility] 11-22-2018 14:30-0500 BP Systolic 138 mm[Hg] [facility] 11-22-2018 14:30-0500 Height 149.9 cm [facility] 11-22-2018 14:30-0500 Pulse (Heart Rate) 82 /min Dimas Mendy [facility] 11-22-2018 14:30-0500 Pulse Oximetry 98 % Dimas Brooke [facility] 11-22-2018 14:30-0500 Respiratory Rate 16 /min Dimas Mendy [facility] 11-22-2018 14:30-0500 [facility] 11-22-2018 10:31-0500 BMI (Body Mass Index) 31.65 kg/m2 [facility] 11-22-2018 10:31-0500 BP Diastolic 105 mm[Hg] [facility] 11-22-2018 10:31-0500 BP Systolic 155 mm[Hg] [facility] 11-22-2018 10:31-0500 Height 150 cm [facility] 11-22-2018 10:31-0500 Pulse (Heart Rate) 85 /min [facility] 11-22-2018 10:31-0500 Pulse Oximetry 96 % [facility] 11-22-2018 10:31-0500 Weight 71.22 kg [facility] 10-12-2018 15:07-0500 BP Diastolic 86 mm[Hg] [facility] 10-12-2018 15:07-0500 BP Systolic 132 mm[Hg] [facility] 10-12-2018 14:32-0500 BMI (Body Mass Index) 34.97 kg/m2 [facility] 10-12-2018 14:32-0500 Body Temperature 98.29 [degF] [facility] 10-12-2018 14:32-0500 Height 142.2 cm [facility] 10-12-2018 14:32-0500 Pulse (Heart Rate) 89 /min [facility] 10-12-2018 14:32-0500 Pulse Oximetry 97 % [facility] 10-12-2018 14:32-0500 Respiratory Rate 18 /min [facility] 10-12-2018 14:32-0500 Weight 70.76 kg [facility] 06-16-2018 10:16-0400 BMI (Body Mass Index) 34.19 kg/m2 [facility] 06-16-2018 10:16-0400 Body Temperature 97.9 [degF] [facility] 06-16-2018 10:16-0400 BP Diastolic 86 mm[Hg] [facility] 06-16-2018 10:16-0400 BP Systolic 128 mm[Hg] [facility] 06-16-2018 10:16-0400 Height 144.8 cm [facility] 06-16-2018 10:16-0400 Pulse (Heart Rate) 94 /min [facility] 06-16-2018 10:16-0400 Pulse Oximetry 97 % [facility] 06-16-2018 10:16-0400 Respiratory Rate 16 /min [facility] 06-16-2018 10:16-0400 Weight 71.67 kg [facility] 05-19-2018 11:32-0400 BMI (Body Mass Index) 35.2 kg/m2 [facility] 05-19-2018 11:32-0400 Body Temperature 98.6 [degF] [facility] 05-19-2018 11:32-0400 BP Diastolic 84 mm[Hg] [facility] 05-19-2018 11:32-0400 BP Systolic 116 mm[Hg] [facility] 05-19-2018 11:32-0400 Height 142.2 cm [facility] 05-19-2018 11:32-0400 Pulse (Heart Rate) 82 /min [facility] 05-19-2018 11:32-0400 Pulse Oximetry 98 % [facility] 05-19-2018 11:32-0400 Respiratory Rate 16 /min [facility] 05-19-2018 11:32-0400 Weight 71.22 kg [facility] 05-03-2018 14:36-0400 BMI (Body Mass Index) 35.58 kg/m2 [facility] 05-03-2018 14:36-0400 Body Temperature 98.2 [degF] [facility] 05-03-2018 14:36-0400 BP Diastolic 66 mm[Hg] [facility] 05-03-2018 14:36-0400 BP Systolic 98 mm[Hg] [facility] 05-03-2018 14:36-0400 Height 142 cm [facility] 05-03-2018 14:36-0400 Pulse (Heart Rate) 72 /min [facility] 05-03-2018 14:36-0400 Pulse Oximetry 98 % [facility] 05-03-2018 14:36-0400 Respiratory Rate 16 /min [facility] 05-03-2018 14:36-0400 Weight 71.76 kg [facility] 01-04-2018 14:04-0400 BMI (Body Mass Index) 34.62 kg/m2 [facility] 01-04-2018 14:04-0400 Body Temperature 98.01 [degF] [facility] 01-04-2018 14:04-0400 BP Diastolic 82 mm[Hg] [facility] 01-04-2018 14:04-0400 BP Systolic 115 mm[Hg] [facility] 01-04-2018 14:04-0400 Height 142.2 cm [facility] 01-04-2018 14:04-0400 Pulse (Heart Rate) 82 /min [facility] 01-04-2018 14:04-0400 Pulse Oximetry 97 % [facility] 01-04-2018 14:04-0400 Respiratory Rate 18 /min [facility] 01-04-2018 14:04-0400 Weight 70.03 kg [facility] 07-15-2017 10:45-0400 BMI (Body Mass Index) 32.91 kg/m2 [facility] Work Phone: 07-15-2017 10:45-0400 Body Temperature 98.01 [degF] [facility] Work Phone: 07-15-2017 10:45-0400 BP Diastolic 68 mm[Hg] [facility] Work Phone: 07-15-2017 10:45-0400 BP Systolic 87 mm[Hg] [facility] Work Phone: 07-15-2017 10:45-0400 Height 142.2 cm [facility] Work Phone: 07-15-2017 10:45-0400 Pulse (Heart Rate) 92 /min [facility] Work Phone: 07-15-2017 10:45-0400 Pulse Oximetry 94 % [facility] Work Phone: 07-15-2017 10:45-0400 Respiratory Rate 16 /min Sheridan Yamil [facility] Work Phone: 07-15-2017 10:45-0400 Weight 66.59 kg [facility] Work Phone: 06-28-2017 15:03-0400 BMI (Body Mass Index) 33.23 kg/m2 [facility] Work Phone: 06-28-2017 15:03-0400 Body Temperature 98.1 [degF] [facility] Work Phone: 06-28-2017 15:03-0400 BP Diastolic 72 mm[Hg] [facility] Work Phone: 06-28-2017 15:03-0400 BP Systolic 102 mm[Hg] [facility] Work Phone: 06-28-2017 15:03-0400 Height 142.2 cm [facility] Work Phone: 06-28-2017 15:03-0400 Pulse (Heart Rate) 98 /min [facility] Work Phone: 06-28-2017 15:03-0400 Pulse Oximetry 98 % [facility] Work Phone: 06-28-2017 15:03-0400 Respiratory Rate 16 /min [facility] Work Phone: 06-28-2017 15:03-0400 Weight 67.22 kg [facility] Work Phone: Encounters Encounter Date Encounter Type Care Provider Facility Start: 05-11-2025 ambulatory Sree Jamison Facility:[facility] Start: 04-23-2025 End: 04-23-2025 Emergency department patient visit Dr. Sree Jamison MD Work Phone: -Emergency Department Work Phone: Start: 04-04-2025 End: 04-05-2025 Emergency department patient visit Dr. Sree Jamison MD Work Phone: -Emergency Department Work Phone: Start: 03-21-2025 End: 03-21-2025 Emergency department patient visit Dr. Sree Jamison MD Work Phone: -Emergency Department Work Phone: Start: 03-13-2025 End: 03-15-2025 Evaluation and management of inpatient Sohail Hernandez MD PhD Work Phone: [facility] Comment on above: Seizure disorder (CM S/HCC) (HCC) (Primary Dx) Start: 02-19-2025 End: 02-19-20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) Start: 01-26-2025 End: 01-26-2025 Telephone encounter Valentina Chopra MD Work Phone: [facility] Comment on above: Med Management Start: 01-25-2025 End: 01-25-2025 Office outpatient visit 15 minutes Valentina Chopra MD Work Phone: [facility] Comment on above: 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) (Primary Dx); Focal epilepsy with impairment of consciousness, intractable (HCC); Tremor; Dizziness Start: 01-25-2025 End: 01-25-2025 ambulatory [facility] Start: 01-01-[address] Sree Jamison MD -Laboratory Specimen Work Phone: Start: 01-01-2025 ambulatory Sree Jamison OLS Facili ty:[facility] Start: 12-08-2024 End: 12-08-2024 Office outpatient visit 25 minutes Sohail Hernandez MD PhD Work Phone: [facility] [employer] Comment on above: Focal epilepsy with impairment of consciousness, intractable (HCC) (Primary Dx) Start: 12-08-2024 End: 12-08-2024 [facility] Start: 11-07-2024 End: 11-07-2024 Emergency department patient visit Ian Starr Facility:[facility] Start: 11-06-2024 End: 11-06-2024 Emergency department patient visit Tim Newby Facility:[facility] Start: 11-04-2024 End: 11-04-2024 Emergency department patient visit Sree Jamison Facility:[facility] Start: 10-30-2024 End: 03-16-2025 Telephone encounter Sohail Hernandez MD PhD Work Phone: [facility] Comment on above: Other ([facility]) Start: 10-26-2024 End: 10-26-2024 Office outpatient visit 40 minutes Sohail Hernandez MD PhD Work Phone: [facility] Comment on above: Focal epilepsy with impairment of consciousness, intractable (HCC) (Primary Dx) Start: 10-26-2024 End: 10-26-2024 ambulatory JEANIE [facility] Start: 10-14-2024 End: 10-14-2024 Emergency department patient visit Fran Naylor Facility:[facility] Start: 10-02-2024 End: 10-03-2024 Emergency department patient visit Geovanny Arndt Facility:[facility] Start: 09-26-2024 End: 09-26-2024 Emergency department patient visit Sree Jamison Facility:[facility] Start: 08-30-2024 End: 08-30-2024 ambulatory JEANIE [facility] Start: 08-30-2024 End: 08-30-2024 Office outpatient visit 25 minutes Gayatri Bobby PA-C Work Phone: [facility]at[facility] - Jerri Denis Comment on above: Seborrheic dermatiti s Start: 07-25-2024 End: 07-26-2024 Emergency department patient visit Archie Sanches Facility:[facility] Start: 07-18-2024 End: 07-18-2024 Office outpatient visit 40 minutes Valentina Chopra MD Work Phone: [facility] Comment on above: 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) (Primary Dx); Tremor; Frequent falls Start: 07-18-2024 End: 07-18-2024 [facility] Start: 07-11-2024 End: 07-14-2024 Telephone encounter Sohail Hernandez MD PhD Work Phone: [facility] Comment on above: Other (Scheduling) Start: 07-07-2024 End: 07-07-2024 Office outpatient visit 40 minutes Sohail Hernandez MD PhD Work Phone: [facility] Comment on above: 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) Start: 07-07-2024 End: 07-07-2024 [facility] Start: 06-16-2024 End: 06-16-2024 Postop follow up visit related to original px Raúl Hudson MD Work Phone: [facility] Comment on above: S/P laparoscopic diomedes endectomy (Primary Dx) Start: 06-16-2024 End: 06-16-[address] [facility] Start: 06-08-2024 Evaluation and manag ement of inpatient [facility] Start: 06-04-2024 End: 06-06-2024 Evaluation and management of inpatient Bang Tovar DO Work Phone: [facility] Start: 05-31-2024 End: 05-31-2024 Office outpatient new 45 minutes Gayatri Bobby PA-C Work Phone: [facility] Comment on above: Seborrheic dermatiti s Start: 05-31-2024 End: 05-31-2024 ambulatory [facility] Start: 05-04-2024 Evaluation and manag ement of inpatient [facility] Start: 04-27-2024 End: 04-27-2024 Subsequent hospital visit by physician Krishna Parada [facility] Comment on above: Encounter for screen ing mammogram for breast cancer Start: 04-27-2024 End: 04-27-2024 ambulatory [facility] Start: 04-19-2024 End: 04-19-2024 Patient encounter procedure Shayy Mcginnis MD Work Phone: [facility] Work Phone: Start: 04-19-2024 End: 04-19-2024 Periodic preventive med est patient 40-64yrs Shayy Mcginnis MD Work Phone: [facility] Comment on above: Well woman exam (no gynecological exam) (Primary Dx); Screening mammogram for breast cancer Start: 04-19-2024 End: 04-19-2024 ambulatory [facility] Start: 04-19-2024 End: 04-19-2024 Encounter for general adult medical examination without abnormal findings [facility] Start: 04-10-2024 Evaluation and manag ement of inpatient JYOTI [facility] Start: 04-07-2024 End: 04-07-2024 Emergency department patient visit JYOTI MAHARAJ [facility] Start: 04-05-2024 End: 04-05-2024 Office outpatient new 45 minutes Khalida Mtz MD Work Phone: [facility] Comment on above: Morbid obesity with BMI of 40.0-44.9, adult (Multi) (Primary Dx); Endometriosis; Thrombocytopenia (CMS-HCC); Chronic systolic (congestive) heart failure (Multi) Start: 04-05-2024 End: 04-05-2024 ambulatory KHALIDA MTZ [facility] Start: 04-04-2024 End: 04-04-2024 Office outpatient visit 15 minutes Mejia Cullen MD Work Phone: [facility] Comment on above: Psoriasis (Primary D x); Frequent falls; Tremor; Impaired mobility Start: 03-04-2024 End: 03-07-2024 Evaluation and management of inpatient JYOTI MAHARAJ [facility] Start: 03-03-2024 End: 03-03-2024 Emergency department patient visit JYOTI MAHARAJ [facility] Start: 02-07-2024 End: 02-07-2024 ambulatory [facility] Start: 02-04-2024 ambulatory JYOTI [facility] Start: 02-04-2024 End: 02-04-2024 Office outpatient new 30 minutes Olinda Luna MD Work Phone: [facility] 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 Comment on above: Encounter to [facility] (Primary Dx) Start: 01-03-2024 Telephone encounter Mejia alicia MD Work Phone: [facility] Comment on above: question Start: 01-03-2024 End: 01-03-2024 Office outpatient visit 15 minutes Mejia Cullen MD Work Phone: [facility] Comment on above: Chronic right should er pain (Primary Dx) Start: 12-31-2023 End: 01-01-2024 ambulatory [facility] Start: 12-31-2023 End: 01-01-2024 Emergency department patient visit Moe Tarango MD Work Phone: [facility] Emergency Department Start: 12-28-2023 Telephone encounter Mejia alicia MD Work Phone: [facility] Comment on above: Orders Start: 12-22-2023 Telephone encounter Mejia alicia MD Work Phone: [facility] Comment on above: Records Request/[facility] Start: 11-17-2023 End: 11-17-2023 Emergency department patient visit Larry Eugene DO Work Phone: [facility] Emergency Medicine Comment on above: Contusion of back, u nspecified laterality, initial encounter (Primary Dx); Fall, initial encounter Start: 11-10-2023 End: 11-10-2023 Office outpatient visit 15 minutes Valentina Munoz MD Work Phone: [facility] Comment on above: Endometriosis (Prima ry Dx) Start: 11-08-2023 End: 11-08-2023 Office outpatient visit 15 minutes Jeanie Ayala MD Work Phone: [facility] Internal Medicine Comment on above: Anxiety; Chronic systolic (congestive) heart failure (CMS/HCC); Depression, major, single episode, severe (CMS/HCC); Seizure-like activity (CMS/HCC); Sedative, hypnotic or anxiolytic dependence with withdrawal, unspecified (CMS/HCC) Start: 10-29-2023 End: 10-29-2023 Patient encounter procedure Matthew Pérez MD [facility] Building Comment on above: Postop check (Primar y Dx) Start: 10-25-2023 End: 10-25-2023 Office outpatient visit 15 minutes Mejia Cullen MD Work Phone: [facility] Comment on above: Chronic midline low back pain without sciatica (Primary Dx); Frequent falls; Tremor Start: 10-14-2023 End: 10-14-20[address] [facility] [facility] Start: 10-05-2023 End: 10-05-2023 ambulatory [facility] Start: 10-05-2023 End: 10-05-2023 Patient encounter status [facility] Work Phone: Start: 10-05-2023 End: 10-05-2023 Subsequent hospital visit by physician Krishna Goodwin Cardiac Room [facility] Comment on above: Preop testing; Tachycardia Arrived Start: 10-05-2023 End: 10-05-2023 ambulatory [facility] Start: 10-05-2023 End: 10-05-2023 Encounter for other preprocedural examination [facility] Start: 10-02-2023 End: 10-02-2023 Emergency department patient visit Lit Ledezma MD Work Phone: [facility] Emergency Medicine Comment on above: Fall, initial encoun ter (Primary Dx) Start: 09-21-2023 End: 09-21-2023 Office consultation new/estab patient 60 min Everett Haywood MD Work Phone: [facility] Comment on above: Tachycardia (Primary Dx); Preop testing Start: 09-21-2023 End: 09-21-2023 Patient encounter status Everett Haywood MD Work Phone: [facility] Work Phone: Start: 09-16-2023 End: 09-16-2023 Emergency department patient visit Dimas Lin MD Work Phone: [facility] Emergency Medicine Comment on above: Contusion of head, u nspecified part of head, initial encounter (Primary Dx); Fall, initial encounter; Contusion of right elbow, initial encounter; Abrasion of right elbow, initial encounter Start: 09-13-2023 End: 09-17-2023 ambulatory [facility] Start: 09-08-2023 End: 09-08-2023 Office outpatient visit 25 minutes Jeanie Ayala MD Work Phone: [facility] Medicine Comment on above: Fatty liver (Primary Dx); Anxiety; Stage 3a chronic kidney disease (CMS/HCC); Hyperglycemia; Abnormal EKG; Chest pain, unspecified type Start: 09-01-2023 End: 09-02-2023 ambulatory JEANIE Rubio [facility] Start: 09-01-2023 End: 09-02-2023 Encounter for other preprocedural examination JEANIE AYALA [facility] Start: 09-01-2023 End: 09-01-2023 Patient encounter status [address] Work Phone: Start: 09-01-2023 End: 09-01-2023 Subsequent hospital visit by physician Krishna X-Ray 1 [facility] Comment on above: Preop testing Start: 09-01-2023 End: 09-01-2023 ambulatory MATTHEW PÉREZ [facility] Start: 08-25-2023 End: 08-25-2023 Emergency department patient visit Abhi Richards DO Work Phone: [facility] Emergency Medicine Comment on above: Fall, initial encoun ter (Primary Dx) Start: 08-23-2023 Telephone encounter Valentina rhodes MD Work Phone: [facility] Comment on above: Referral Start: 08-19-2023 Telephone encounter Valentina rhodes MD Work Phone: [facility] Comment on above: Advice Only (Clarifi cation on Order) Start: 08-19-2023 End: 08-19-2023 Office outpatient new 45 minutes Valentina Chopra MD Work Phone: [facility] Comment on above: 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) (Primary Dx); Tremor; Frequent falls Start: 08-17-2023 Patient encounter status Savi Richards DO Work Phone: [facility] Work Phone: Start: 08-17-2023 Encounter for other preprocedural examination [facility] Start: 08-17-2023 Encounter for other preprocedural examination [facility] Start: 08-16-2023 End: 08-16-2023 Office outpatient visit 25 minutes Matthew Pérez MD Work Phone: [facility] Comment on above: Pre-op exam (Primary Dx); Menorrhagia with irregular cycle; Screen for STD (sexually transmitted disease); Pelvic pain Start: 08-16-2023 End: 08-16-2023 Preprocedural examination done Matthew Pérez MD Work Phone: [facility] Work Phone: Start: 08-13-2023 End: 08-13-2023 Emergency department patient visit Lopez Gutierrez DO Work Phone: [facility] Emergency Medicine Comment on above: Primary hypertension (Primary Dx); Renal insufficiency Start: 08-11-2023 End: 08-11-2023 Office outpatient visit 25 minutes Jeanie Ayala MD Work Phone: [facility] Comment on above: Chronic systolic (co ngestive) heart failure (CMS/HCC) (Primary Dx); Anxiety; Depression, major, single episode, severe (CMS/HCC); Generalized epilepsy (CMS/HCC); Sedative, hypnotic or anxiolytic dependence with withdrawal, unspecified (CMS/HCC); Stage 3a chronic kidney disease (CMS/HCC); Fatty liver; Thrombocytopenia ([facility]/HCC) Start: 08-06-2023 End: 08-06-2023 ambulatory [facility] Start: 08-01-2023 End: 08-02-2023 Emergency department patient visit JEANIE M [facility] Start: 07-29-2023 End: 07-30-2023 ambulatory [facility] Start: 07-24-2023 End: 07-25-2023 Emergency department patient visit Caren Gilman DO Work Phone: [facility] Medicine Comment on above: Anxiety (Primary Dx) ; Fall, initial encounter Start: 07-16-2023 End: 07-16-2023 Emergency department patient visit Caren Gilman [facility] 12 Start: 07-13-2023 End: 07-13-2023 Office outpatient visit 25 minutes Jeanie Ayala MD Work Phone: [facility] Comment on above: Vagina bleeding (Pau zeke Dx); Dysuria; Anxiety; Primary hypertension Start: 06-15-2023 Patient encounter procedure Reanna Kemp [facility] Start: 06-14-2023 End: 06-14-2023 Emergency department patient visit Larry Eugene [facility] 12 Start: 06-08-2023 ambulatory Jeanie Tavallaee Facil [id number] Start: 06-08-2023 Patient encounter procedure Jeanie Rubio Tavallaee Work Phone: [facility] Work Phone: Start: 06-04-2023 Patient encounter procedure Jeanie M Tavallaee Work Phone: [facility] Work Phone: Start: 06-02-2023 End: 06-03-2023 ambulatory JEANIE Puma CHILDSALLAEE [facility] Start: 06-01-2023 Chart Update Jeanie Childsa llaee Work Phone: [address] Work Phone: Start: 05-28-2023 Patient encounter procedure Jeanie Rubio [place] Work Phone: [facility] Work Phone: Start: 05-28-2023 ambulatory Jeanie Tavallaee Facil [id number] Start: 05-21-2023 Patient encounter procedure Jeanie Puma [place] Work Phone: [facility] Work Phone: Start: 05-21-2023 ambulatory Jeanie Tavallaee Facil ity:[id number] Start: 05-19-2023 ambulatory Jeanie Tavallaee Facil ity:[id number] Start: 05-19-2023 AQUATICFU4, Provider : Pippa Freeman, Status: Pen, Time: 11:30 AM Jeanie Childsallaee Work Phone: [facility] Work Phone: Start: 05-14-2023 Patient encounter procedure Jeanie Puma [place] Work Phone: [facility] Work Phone: Start: 05-14-2023 ambulatory Jeanie Tavallaee Facil [id number] Start: 05-07-2023 ambulatory Jeanie Tavallaee Facil ity:[id number] Start: 05-07-2023 AQUATICFU4, Provider : Pippa Freeman, Status: Pen, Time: 10:00 AM Jeanie Ayala Work Phone: [facility] Work Phone: Start: 05-05-2023 Patient encounter procedure Jeanie Puma Childsallaee Work Phone: [facility] Work [facility]: Start: 05-04-2023 End: 05-04-2023 Office outpatient visit 15 minutes Jeanie Ayala MD Work Phone: [facility] Comment on above: Anxiety Start: 04-30-2023 FUV, Provider: Matthew Pérez, Status: Hugh, Time: 10:45 AM Jeanie Puma Childsallaee Work Phone: [facility] Work [facility]: Start: 04-30-2023 Office outpatient vi sit 15 minutes Jeanie Goaee Work Phone: [address] Work Phone: Start: 04-30-[address] Jeanie Ayala Facility:[id number] Start: 04-28-2023 ambulatory Jeanie Tavallaee Facil ity:[id number] Start: 04-28-2023 LARA, Provider : Trice Tejada, Status: Hugh, Time: 11:45 AM Jeaniemilagro Goaedarrell Work Phone: [facility] Work Phone: Start: 04-28-2023 AQUATICFU4, Provider : Pippa Freeman, Status: Pen, Time: 10:45 AM Jeanie M Tavallaee Work Phone: [facility] Work [facility]: Start: 04-28-2023 Patient encounter procedure Jeanie M Tavallaee Work Phone: [facility] Work [facility]: Start: 04-27-2023 OTRADHA, Provider : Naya Giles, Status: Pen, Time: 10:45 AM Jeanie M Tavallaee Work Phone: [facility] Work [facility]: Start: 04-27-2023 Patient encounter procedure Jeanie M Tavallaee Work Phone: [facility] Work [facility]: Start: 04-27-2023 ambulatory Jeanie Tavallaee Facil ity:[id number] Start: 04-26-2023 Patient encounter procedure Jeanie M Tavallaee Work Phone: [facility] Work [facility]: Start: 04-26-2023 ambulatory Jeanie Tavallaee Facil ity:[id number] Start: 04-23-2023 Patient encounter procedure Jeanie M Tavallaee Work Phone: [facility] Work Phone: Start: 04-23-2023 ambulatory Jeanie Tavallaee Facil ity:[id number] Start: 04-15-2023 ambulatory Jeanie Tavallaee Facil ity:[id number] Start: 04-14-2023 Patient encounter procedure Jeanie M Tavallaee Work Phone: [facility] Work [facility]: Start: 04-09-2023 AQUATICFU4, Provider : Pippa Freeman, Status: Pen, Time: 10:00 AM Jeanie Puma Tavallaee Work Phone: [facility] Work Phone: Start: 04-09-2023 Patient encounter procedure Jeanie Rubio Tavallaee Work Phone: [facility] Work [facility]: Start: 04-09-2023 ambulatory Jeanie Tavallaee Facil ity:[id number] Start: 04-08-2023 Chart Update Jeanie M Tava llaee Work Phone: [facility] Work Phone: Start: 04-07-2023 ambulatory Jeanie Tavallaee Facil ity:[id number] Start: 04-07-2023 [facility], Provider : Pippa Freeman, Status: Pen, Time: 10:00 AM Jeanie Puma Tavallaee Work Phone: [facility] Work Phone: Start: 04-07-2023 Chart Update Jeanie Rubio Tava llaee Work Phone: [facility] Work Phone: Start: 04-05-2023 Office outpatient vi sit 25 minutes Jeanie Puma Tavallaee Work Phone: [facility] [address] [place] [facility] Work Phone: Start: 04-05-[address] Jeanie Ayala Facility:[id number] Start: 04-02-2023 Patient encounter procedure Reanna M Justo [facility] Start: 04-02-2023 ambulatory Jeanie Tavallaee Facil ity:[id number] Start: 04-01-2023 End: 04-01-2023 Emergency department patient visit Caren Gilman [facility] 02 Start: 03-19-2023 ambulatory Jeanie Tavallaee Facil [id number] Start: 03-19-2023 Patient encounter procedure Jeanie M Tavallaee [facility] Phone[facility] Work Phone: Start: 03-10-2023 ambulatory Jeanie Tavallaee Facil ity:[id number] Start: 03-08-2023 ambulatory Jeanie Tavallaee Facil ity:[id number] Start: 03-03-2023 AQUATICFU4, Provider : Pippa Freeman, Status: Pen, Time: 10:00 AM Jeanie M Tavallaee [facility] Work [facility]: Start: 03-03-2023 Patient encounter procedure Jeanie Puma Tavallaee Work Phone: [facility] Work Phone: Start: 03-03-2023 ambulatory Jeanie Tavallaee Facil ity:[id number] Start: 03-01-2023 Patient encounter procedure Jeanie Puma T[place]ee [facility] Work [facility]: Start: 03-01-2023 ambulatory Jeanie Tavallaee Facil ity:[id number] Start: 02-26-2023 ambulatory Jeanie Tavallaee Facil ity:[id number] Start: 02-26-2023 AQUATICFU4, Provider : Pippa Freeman, Status: Pen, Time: 10:45 AM Jeanie Puma Tavallaee Work Phone: [facility] Work Phone: Start: 02-26-2023 Patient encounter procedure Jeanie M Tavallaee Work Phone: [facility] Work [facility]: Start: 02-25-2023 End: 02-25-2023 Office outpatient visit 25 minutes Jeanie Ayala MD Work Phone: [facility] Comment on above: Primary hypertension (Primary Dx); Sedative, hypnotic or anxiolytic dependence with withdrawal, unspecified (CMS/HCC); Depression, major, single episode, severe (CMS/HCC); Impacted cerumen of right ear Start: 02-24-2023 Office outpatient vi sit 10 minutes Jeanie Ayala Work Phone: [facility] DO Work Phone: Start: 02-24-[address] Jeanie Ayala Facility:[id number] Start: 02-20-2023 End: 02-20-2023 Emergency department patient visit Jeanie Ayala Facility:[id number] Start: 02-19-2023 Patient encounter procedure Jeanie Ayala Work Phone: [facility] Work [facility]: Start: 02-19-2023 ambulatory Jeanie Tavallaee Facil ity:[id number] Start: 02-16-2023 Chart Update Jeanie armenta Work Phone: [facility] 3 DO Work Phone: Start: 02-15-2023 ambulatory Jeanie Tavallaee Facil ity:[id number] Start: 02-15-2023 Patient encounter procedure Jeanie Ayala Work Phone: [facility] Work Phone: Start: 02-12-2023 Patient encounter procedure Jeanie Ayala Work Phone: [facility] Work Phone: Start: 02-12-2023 ambulatory Jeanie Tavallaee Facil ity:[id number] Start: 02-04-2023 ambulatory Jeanie Tavallaee Facil ity:9856 Start: 02-01-2023 Patient encounter procedure Jeanie Goaee Work Phone: [facility] 3 DO Work Phone: Start: 01-29-2023 Patient encounter procedure Jeanie Goaee Work Phone: [facility] Work Phone: Start: 01-29-2023 ambulatory Jeanie Childsallaee Facil ity:[id number] Start: 01-27-[address] Jeanie Ayala Facility:[facility] Start: 01-26-2023 Office outpatient ne w 45 minutes Jeanie Delacruze Work Phone: [facility] 3 DO Work Phone: Start: 01-26-[address] Jeanie Ayala Facility:[id number] Start: 01-21-2023 End: 01-21-2023 Emergency department patient visit Larry Eugene [facility] 03 Start: 01-20-2023 Chart Update Jeanie armenta Work Phone: [facility] 300 Work Phone: Start: 01-19-2023 ambulatory Jeanie Goaee Facil ity:[id number] Start: 01-19-2023 Office outpatient vi sit 25 minutes Jeanie Delacruze Work Phone: [facility] 300 Work Phone: Start: 01-19-[address] Jeanie Ayala Facility:[id number] Start: 01-15-2023 ambulatory Jeanieizaiah Goaee Facil ity:[id number] Start: 01-15-2023 Patient encounter procedure Jeanie Ayala Work Phone: [facility] Work Phone: Start: 01-12-2023 End: 01-12-2023 Office outpatient visit 25 minutes Sammie Iglesias MD Work Phone: [facility] Comment on above: COVID-19 (Primary Dx ); Cough in adult; Chest congestion; Otalgia of both ears; Acute cystitis with hematuria Start: 01-08-2023 End: 01-08-2023 Emergency department patient visit JEANIE AYALA [facility] Start: 01-08-2023 Patient encounter procedure Reanna Rubio Kemp [facility] Start: 01-07-2023 End: 01-08-2023 Emergency department patient visit Shilpa Misael [facility] 03 Start: 01-07-2023 End: 01-07-2023 Emergency department patient visit Abhi Richards [facility] 11 Start: 01-04-2023 ambulatory Jaenie Tavallaee Facil ity:[id number] Start: 01-04-2023 Patient encounter procedure Jeanie Ayala Work Phone: [facility] Work Phone: Start: 01-01-2023 End: 01-01-2023 Emergency department patient visit Lit Ledezma [facility] 01 Start: 12-30-2022 ambulatory Jeanie Tavallaee Facil ity:[id number] Start: 12-30-2022 AQUATICFU4, Provider : Pippa Freeman, Status: Pen, Time: 9:15 AM Jeanie Ayala Work Phone: [facility] Work Phone: Start: 12-30-2022 Patient encounter procedure Jeanie Delacruze Work Phone: [facility] Work Phone: Start: 12-28-2022 ambulatory Jeanie Tavallaee Facil ity:[id number] Start: 12-28-2022 Patient encounter procedure Jeanie Delacruze Work Phone: [facility] Work [facility]: Start: 12-25-2022 ambulatory Jeanie Tavallaee Facil ity:[id number] Start: 12-25-2022 AQUATICFU4, Provider : Pippa Freeman, Status: Pen, Time: 9:15 AM Jeanie M Tavallaee Work Phone: [facility] 300 Work Phone: Start: 12-25-2022 Patient encounter procedure Jeanie M Tavallaee Work Phone: [facility] Work Phone: Start: 12-24-2022 NEWPROB, Provider: Kellie Avery, Status: Pen, Time: 10:15 AM Jeanie M Tavallaee Work Phone: [facility] 300 Work Phone: Start: 12-24-2022 NPV, Provider: Jeison Clancy, Status: Pen, Time: 9:30 AM Jeanie M Tavallaee Work Phone: [facility] 300 Work Phone: Start: 12-23-2022 Office outpatient vi sit 15 minutes Jeanie M Tavallaee Work Phone: [facility] 300 Work Phone: Start: 12-23-2022 ambulatory Jeanie Tavallaee Facil ity:[id number] Start: 12-17-2022 Patient encounter procedure Jeanie M Tavallaee Work Phone: [facility] Work Phone: Start: 12-17-2022 ambulatory Jeanie Tavallaee Facil ity:[id number] Start: 12-15-[address] Jeanie Ayala Facility:[id number] Start: 12-07-2022 End: 12-07-2022 Emergency department patient visit Andres Jovita [facility] 10 Start: 12-02-[address] Jeanie Ayala Facility:[id number] Start: 12-02-2022 Patient encounter procedure Jeanie Ayala Work Phone: [facility] Work Phone: Start: 11-26-2022 End: 11-26-2022 Emergency department patient visit Caren Gilman [facility] 02 Start: 11-25-2022 FUV, Provider: Rayne Lin, Status: Pen, Time: 11:15 AM Jeanieizaiah Ayala Work Phone: [facility] Work Phone: Start: 11-25-2022 Office outpatient vi sit 40 minutes Jeanieizaiah Goaee Work Phone: [facility] Work Phone: Start: 11-25-[address] Jeanie Ayala Facility:[id number] Start: 11-25-2022 ambulatory Jeanie Tavallaee Facil ity:[id number] Start: 11-23-2022 Office outpatient vi sit 15 minutes Jeanie M Tavallaee Work Phone: [facility] Work Phone: Start: 11-23-[address] Jeanie Ayala Facility:[id number] Start: 11-20-2022 ambulatory Jeanie Tavallaee Facil ity:[id number] Start: 11-12-2022 HOLTER 48, Provider: EUNICE DIAGNOSTIC THERAPIST,[facility], Status: Pen, Time: 2:00 PM Jeanieizaiah Goaee Work Phone: [facility] Work Phone: Start: 11-12-2022 ECHO, Provider: BARRY NEWMAN [facility]CHO [facility], Status: Pen, Time: 1:00 PM Jeanieizaiah Childsallaee Work Phone: [facility] Work Phone: Start: 11-12-2022 ambulatory Jeanie Ayala Facil ity:[id number] Start: 11-10-[address] Jeanie Ayala Facility:[id number] Start: 11-10-2022 Office outpatient vi sit 15 minutes Jeanie Ayala Work Phone: [facility] 300 Work Phone: Start: 11-06-2022 AUDIT Jeanie armenta Work Phone: [facility] [address] [place] [facility] Work Phone: Start: 11-05-2022 Office outpatient ne w 45 minutes Jeanie Ayala Work Phone: [place] [address] [place] [facility] Work Phone: Start: 11-05-[address] Jeanie Ayala Facility:[id number] Start: 10-31-2022 End: 11-01-2022 Emergency department patient visit Jeanie Ayala Facility:[id number] Start: 10-29-2022 AUDIT Jeanie armenta Work Phone: [facility] Work Phone: Start: 10-28-2022 Transcribe Orders Jeanie Ayala MD Work Phone: [facility] Comment on above: Migraine without sta tus migrainosus, not intractable, unspecified migraine type (Primary Dx) Start: 10-28-2022 AUDIT Jeanie armenta Work Phone: [facility] Work Phone: Start: 09-16-2022 FUV, Provider: Reanna Kemp, Status: Pen, Time: 10:30 AM Jeanie Ayala Work Phone: [facility] Work Phone: Start: 09-16-2022 Office outpatient vi sit 15 minutes Jeanie Delacruze Work Phone: [facility] 300 Work Phone: Start: 09-16-2022 Patient encounter procedure Jeanie Ayala Work Phone: [facility] 300 Work Phone: Start: 09-16-[address] Jeanie Ayala Facility:[id number] Start: 09-15-2022 Office outpatient vi sit 25 minutes Jeanie Goaee Work Phone: [facility] Work Phone: Start: 09-15-[address] Jeanie Ayala Facility:[id number] Start: 08-29-2022 Chart Update Jeanie Wiggins llaee Work Phone: [facility] Work Phone: Start: 08-24-2022 Chart Update Jeanie Wiggins llaee Work Phone: [facility] Work Phone: Start: 08-24-2022 End: 08-24-2022 [facility] Start: 08-19-2022 FUV, Provider: Renana Kemp, Status: Pen, Time: 10:30 AM Jeanie Goaee Work Phone: [facility] Work Phone: Start: 08-19-2022 Office outpatient vi sit 15 minutes Jeanie Goaee Work Phone: [facility] 300 Work Phone: Start: 11-01-2022 Office outpatient vi sit 25 minutes Jeanie M Tavallaee Work Phone: [facility] Internal Medicine Work Phone: Start: 08-06-2022 ambulatory Jeanie Tavallaee Facil [id number] Start: 07-21-2022 Office outpatient vi sit 25 minutes Jeanie M Tavallaee Work Phone: [facility] Internal Medicine Work Phone: Start: 07-15-2022 NPV, Provider: Reanna Kemp, Status: Pen, Time: 1:00 PM Jeanie M Tavallaee Work Phone: [facility] Internal Medicine Work Phone: Start: 07-15-2022 Office outpatient ne w 45 minutes Jeanie M Tavallaee Work Phone: -[facility] 300 Work Phone: Start: 07-15-2022 Patient encounter procedure Jeanie M Tavallaee Work Phone: -[facility] 300 Work Phone: Start: 07-13-2022 Chart Update Jeanie M Tava llaee Work Phone: [facility] Medicine Work Phone: Start: 07-02-2022 NPV, Provider: Ivelisse Lange, Status: Pen, Time: 1:45 PM Jeanie M Tavallaee Work Phone: [facility] Internal Medicine Work Phone: Start: 06-30-2022 Office outpatient vi sit 25 minutes Jeanie M Tavallaee Work Phone: [facility] Internal Medicine Work Phone: Start: 05-09-2022 End: 05-10-2022 Emergency department patient visit Dinesh Chun [facility] 01 Start: 05-06-2022 End: 05-06-2022 Emergency department patient visit [facility] Start: 05-05-2022 Office outpatient vi sit 15 minutes Jeanie Puma Tavallaee Work Phone: [facility] Internal Medicine Work Phone: Start: 03-06-2022 Chart Update Jeanie M Tava llaee Work Phone: [address] Work Phone: Start: 03-04-2022 Office outpatient vi sit 25 minutes Jeanie Puma Tavallaee Work Phone: [facility] Internal Medicine Work Phone: Start: 01-30-2022 Patient encounter procedure Jeanie Puma Tavallaee Work Phone: [facility] Medicine Work Phone: Start: 01-29-2022 Chart Update Jeanie M Tava llaee Work Phone: [facility] Medicine Work Phone: Start: 01-22-2022 Chart Update Jeanie M Tava llaee Work Phone: [facility] Medicine Work Phone: Start: 01-07-2022 Office outpatient vi sit 25 minutes Jeanie Puma Tavallaee Work Phone: [facility] Medicine Work Phone: Start: 12-30-2021 Chart Update Jeanie Rubio Tava llaee Work Phone: [facility] Internal Medicine Work Phone: Start: 12-29-2021 Chart Update Jeanie M Tava llaee Work Phone: [facility] Medicine Work Phone: Start: 12-17-2021 Office outpatient vi sit 25 minutes Jeanie Puma Tavallaee Work Phone: [facility] Medicine Work Phone: Start: 12-17-2021 Chart Update Jeanie M Tava llaee Work Phone: [facility] Internal Medicine Work Phone: Start: 12-15-2021 Patient encounter procedure Jeanie M Tavallaee [facility] Start: 12-13-2021 End: 12-13-2021 Emergency department patient visit Tenisha Lane [facility] 02 Start: 12-08-2021 Office outpatient vi sit 25 minutes Jeanie M Tavallaee Work Phone: [facility] Medicine Work Phone: Start: 12-05-2021 End: 12-05-2021 Emergency department patient visit Lopez Gutierrez [facility] 09 Start: 12-03-2021 Office outpatient vi sit 25 minutes Jeanie M Tavallaee Work Phone: [facility] Medicine Work Phone: Start: 11-27-2021 End: 11-28-2021 Emergency department patient visit Larry Eugene [facility] 15 Start: 11-04-2021 Office outpatient vi sit 25 minutes Jeanie M Tavallaee Work Phone: [facility] Medicine Work Phone: Start: 10-30-2021 Chart Update Jeanie M Tava llaee Work Phone: [facility] Medicine Work Phone: Start: 10-29-2021 Chart Update Jeanie M Tava llaee Work Phone: [facility] Medicine Work Phone: Start: 08-12-2021 Office outpatient vi sit 25 minutes Jeanie M Tavallaee Work Phone: [facility] Medicine Work Phone: Start: 08-12-2021 Patient encounter procedure Jeanie M Tavallaee Work Phone: [facility] Medicine Work Phone: Start: 08-06-2021 Chart Update Jeanie M Tava llaee Work Phone: [facility] Medicine Work Phone: Start: 07-18-2021 Transcribe Orders Julian Galeana MD Work Phone: [facility] Comment on above: Fracture of bone of nasal sinus (HCC) (Primary Dx) Start: 07-17-2021 Office outpatient vi sit 25 minutes Jeanie M Tavallaee Work Phone: [facility] Medicine Work Phone: Start: 07-14-2021 Office outpatient vi sit 10 minutes Jeanie M Tavallaee Work Phone: [employer] [facility] Work Phone: Start: 07-10-2021 End: 07-10-2021 Emergency department patient visit Larry Eugene [facility] 10 Start: 07-09-2021 Chart Update Jeanie Rubio Tava llaee Work Phone: [employer] [employer] Work Phone: Start: 07-07-2021 Chart Update Jeanie M Tava llaee Work Phone: [facility] [employer] Work Phone: Start: 06-24-2021 Office outpatient vi sit 15 minutes Jeanie M Tavallaee Work Phone: [facility] Internal Medicine Work Phone: Start: 05-27-2021 End: 05-27-2021 Emergency department patient visit Franco Heaton [facility] Start: 05-19-2021 FUVHOBRADLEY, Provider: Kindra Bruce, Status: Pen, Time: 1:00 PM Jeanie Puma Tavallaee Work Phone: [facility] Medicine Work Phone: Start: 05-19-2021 Office outpatient vi sit 25 minutes Jeanie Ayala Work Phone: [facility] Medicine Work Phone: Start: 05-19-2021 AUDIT Jeanie armenta Work Phone: [facility] Medicine Work Phone: Start: 05-18-2021 End: 05-18-2021 Emergency department patient visit Lit Ledezma [facility] 01 Start: 05-15-2021 End: 05-15-2021 Emergency department patient visit Shilpa Douglas [facility] 08 Start: 05-14-2021 End: 05-14-2021 Emergency department patient visit Tenisha Lane [facility] 13 Start: 04-23-2021 Chart Update Jeanie armenta Work Phone: [facility] Work Phone: Start: 04-08-2021 FUV, Provider: Jeanie Ayala, Status: Pen, Time: 11:45 AM Jeanie Ayala Work Phone: [facility] [employer] Work Phone: Start: 04-08-2021 Patient encounter procedure Jeanie Ayala Work Phone: [facility] Work Phone: Start: 04-07-2021 Office outpatient vi sit 10 minutes Jeanie Ayala Work Phone: [facility] [employer] Work Phone: Start: 12-25-2020 Patient encounter procedure Jeanie Ayala [facility] Work Phone: Start: 12-18-2020 End: 12-18-2020 Office outpatient new 45 minutes Julian Galeana Work Phone: [facility] Comment on above: Fracture of nasal vandana corey, subsequent encounter for fracture with routine healing (Primary Dx); Mucous retention cyst of maxillary sinus Start: 12-05-2020 End: 12-05-2020 Orders Only Chance Trinh Antonio Work Phone: [facility] Start: 12-01-2020 End: 12-03-2020 Emergency department patient visit Christiano Olivares Work Phone: [facility] Intermediate Comment on above: Seizures (HCC) [...] Start: 11-26-2020 Patient encounter procedure Jeanie Ayala [facility] Work Phone: Start: 06-18-2020 Patient encounter procedure Urban Purdy [facility] Work Phone: Start: 03-14-2020 Patient encounter procedure Urban DOLANRO-Hxauifbxp-Rnxulwij [facility] Work Phone: Start: 10-30-2019 Patient encounter procedure Urban DOLANMS-Fywkaepoc-Gtjazkte [facility] Work Phone: Start: 09-25-2019 Patient encounter procedure Anel Velasquez [facility] [address] [employer] Work Phone: Start: 08-07-2019 Patient encounter procedure Anel Velasquez [facility] [address] [employer] Work Phone: Start: 03-31-2019 End: 03-31-2019 Patient encounter procedure Jemma Figueroa [facility] Phys[facility] Start: 03-27-2019 End: 03-27-2019 ambulatory Jemma Figueroa RN [facility] Start: 03-27-2019 Follow-up encounter Jemma Figueroa RN [facility] Comment on above: Transition Of Care ( follow up d/c 03/16/19); [facility] 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); Tremors (anxiety induced) Start: 03-17-2019 End: 03-17-2019 Patient encounter procedure Jemma Figueroa [facility] Comment on above: Transition Of Care ( INitial outreach) Start: 03-16-2019 End: 03-16-2019 Evaluation and management of inpatient Karin Richards Work Phone: [facility] EEG Comment on above: Arrived Start: 03-16-2019 End: 03-16-2019 Emergency department patient visit Generic [facility] Work Phone: [facility] Medical Observation Start: 03-08-2019 End: 03-12-2019 Office outpatient visit 15 minutes Nedra Brewer Work Phone: [facility] Phys[facility] Comment on above: Valproic acid toxici ty, accidental or unintentional, subsequent encounter (Primary Dx); Hypokalemia; Thrombocytopenia (HCC) Start: 03-01-2019 End: 03-05-2019 Transitional care manage srvc 14 day discharge Nedra Brewer Work Phone: [facility] Phys[facility] Comment on above: Valproic acid toxici ty, accidental or unintentional, subsequent encounter; Essential hypertension Start: 02-28-2019 End: 02-28-2019 Patient Outreach Jemma Reyna [facility] Comment on above: Transition Of Care Start: 12-26-2018 End: 12-26-2018 Patient encounter procedure Zeke Onofre Work Phone: [facility] Phys[facility] Comment on above: Arrived Chest pain at rest Start: 12-26-2018 End: 12-26-2018 Subsequent hospital visit by physician Zeke Onofre Work Phone: [facility] Comment on above: Arrived Start: 12-08-2018 Patient encounter procedure Zeke Onofre Facility:[place] Start: 11-22-2018 End: 11-22-2018 Office outpatient visit 25 minutes Dimas Brooke Work Phone: [facility] Phys[facility] Comment on above: Essential hypertensi on; Chronic kidney disease, stage III (moderate) (HCC); Viral URI Start: 11-22-2018 Patient encounter procedure Zeke Onofre Facility:[place] Start: 11-22-2018 End: 11-22-2018 Patient encounter procedure Zeke Onofre Work Phone: [facility] Start: 11-22-2018 End: 11-22-2018 Office consultation new/estab patient 60 min Zeke Onofre Work Phone: [facility] Comment on above: Chest pain at rest; Essential hypertension; Chronic kidney disease, stage III (moderate) (HCC) Start: 10-24-2018 End: 10-24-2018 Patient encounter procedure Kindra Prescott [facility] Comment on above: PRIOR AUTHORIZATION (CARDURA) Start: 10-12-2018 End: 10-12-2018 Office outpatient visit 25 minutes Nedra Brewer Work Phone: [facility] Phys[facility] Comment on above: Chest pain at rest ( Primary Dx); Essential hypertension; Chronic kidney disease, stage III (moderate) (HCC) Start: 09-01-2018 Refill Dimas desai MD Work Phone: [facility] Start: 07-08-2018 End: 07-08-2018 Patient encounter Jemma Figueroa [facility] Comment on above: Chronic Care Managem ent (follow up) Start: 06-16-2018 Patient encounter procedure Dimas Brooke Facility:[place] Start: 06-16-2018 End: 06-16-2018 Office outpatient visit 25 minutes Dimas Brooke Work Phone: [facility] Phys[facility] Comment on above: History of UTI (Prim xavier Dx); Gastroesophageal reflux disease, esophagitis presence not specified; Essential hypertension; Obesity, Class I, BMI 30.0-34.9 (see actual BMI) Start: 06-15-2018 Patient encounter Jemma Figueroa [facility] Start: 06-10-2018 Patient encounter Jemma Figueroa [facility] Start: 06-06-2018 Patient encounter Jemma Figueroa [facility] Start: 06-03-2018 Patient encounter Jemma Figueroa [facility] Start: 05-19-2018 End: 05-19-2018 Office outpatient visit 15 minutes Dimas Brooke Work Phone: [facility] Phys[facility] Start: 05-13-2018 End: 05-14-2018 Emergency department patient visit SUMMER HALEY Facility: Start: 05-03-2018 End: 05-03-2018 Office outpatient visit 25 minutes Dimas Brooke Work Phone: [facility] Phys[facility] Start: 04-22-2018 Emergency department patient visit Facility:[facility] Start: 03-15-2018 End: 03-15-2018 Emergency department patient visit Bobby Zavala Facility:[place] Start: 01-04-2018 End: 01-04-2018 Office/outpatient visit, est, level 4 Dimas Brooke Work Phone: [facility] Start: 01-02-2018 End: 01-02-2018 Emergency department patient visit Leigh Ann Ayala Facility:[place] Start: 09-15-2017 End: 09-16-2017 Ambulatory VALENTINA CHOPRA Facility:[facility] Start: 08-12-2017 Ambulatory VALENTINA CHOPAR Facility: [facility] Start: 08-06-2017 ERRONEOUS ENCOUNTER-DISREGARD Dimas Brooke Work Phone: [facility] Phys[facility] Start: 07-15-2017 Postop follow-up visit Williams Lobo Work Phone: [facility] Specialists Start: 07-06-2017 End: 07-06-2017 Patient encounter procedure Dimas Brooke Work Phone: [facility] Phys[facility] Comment on above: ERRONEOUS ENCOUNTER- -DISREGARD (Primary Dx) Start: 06-28-2017 Postop follow-up visit Williams Lobo Work Phone: [facility] Start: 01-05-[address] [facility] Cancer cervix - scre ening done Jeanie Ayala Work Phone: [place] [id number] [employer] Work Phone: Comment on above: 01/29/2021;NIL, HPV N EG09/30/17; NIL; Encounter for gynecological examination (general) (routine) without abnormal findings Jeanie Ayala Work Phone: [facility] Internal Medicine Work Phone: Comment on above: 01/29/2021;NIL, HPV N EG09/30/17; NIL; 01/29/2021; COTEST NE 09/30/17; NIL; Menarche Jeanie de la rosa Work Phone: [place] [id number] [employer] Work Phone: Patient encounter procedure Jeanie Ayala Work Phone: [place] [id number] [employer] Work Phone: Procedures Date Procedure Procedure Detail [...] 03-14-2025 Radiologic examinati on foot 2 views Vishalpbparul Perez [employer] Work Phone: Start: 03-14-2025 End: 03-14-2025 Comprehensive metabolic panel Srinivasa mullen MD Work Phone: Start: 03-13-2025 Comprehensive metabolic panel Srinivasa Luevano MD Work Phone: Start: 03-13-2025 Thyrotropin [Units/v olume] in Serum or Plasma Sohail Hernandez MD PhD Work Phone: Start: 06-06-2024 Renal function panel Kalen Blanca CASE COORDINATOR Work Phone: Start: 06-05-2024 End: 06-05-2024 Laparoscopic appendectomy Raúl gillette MD Work Phone: Start: 06-05-2024 Comprehensive metabolic panel Scott Topete MD Work Phone: Start: 06-05-2024 Red blood cell morphology Scott Topete MD Work Phone: Start: 06-05-2024 Electrocardiogram Max ry S Tovar DO Work Phone: Start: 06-04-2024 Assay of troponin quantitative Bang S Tovar DO Work Phone: Start: 06-04-2024 RAINBOW DRAW Bang S Tovar DO Work Phone: Start: 06-04-2024 URINE MANCILLA CONTAINER Za leonardo S Tovar DO Work Phone: Start: 06-04-2024 Urnls dip stick/tabl et reagent auto microscopy Bang S Tovar DO Work Phone: Start: 06-04-2024 Ecg routine ecg w/le ast 12 lds w/i&r Bang S Tovar DO Work Phone: Start: 06-04-2024 Ct abdomen & pelvis w/contrast material Bang S Tovar DO Work Phone: Start: 06-04-2024 Comprehensive metabolic panel Bang S Tovar DO Work Phone: Start: 06-04-2024 MANCILLA TOP Bang S Tovar DO Work Phone: Start: 06-04-2024 LAVENDER TOP Bang Tovar DO Work Phone: Start: 06-04-2024 MINT GREEN TOP Bang Tovar DO Work Phone: Start: 06-04-2024 RAINBOW DRAW Bang Tovar DO Work Phone: Start: 06-04-2024 Red blood cell morphology Bang Tovar DO Work Phone: Start: 04-27-2024 Mammography Raúl Hudson MD Work Phone: Start: 03-05-2024 Thyrotropin [Units/v olume] in Serum or Plasma Mejia Cullen MD Work Phone: Start: 03-04-2024 Microalbumin [Mass/v olume] in Urine by Test strip Raúl Hudson MD Work Phone: Start: 01-01-2024 Assay of troponin quantitative Naveen Hernandez DO Work Phone: Start: 01-01-2024 Comprehensive metabolic panel Naveen Geris DO Work Phone: Start: 01-01-2024 Drug assay valproic dipropylacetic acid total Naveen Olivais DO Work Phone: Start: 01-01-2024 Red blood cell morphology Naveen Hernandez DO Work Phone: Start: 01-01-2024 Thyrotropin [Units/v olume] in Serum or Plasma Mejia Cullen MD Work Phone: Start: 01-01-2024 Polymerase chain lynn ction analysis Naveen Olivais DO Work Phone: Start: 12-31-2023 Hemoglobin glycosylated a1c Shahilda Geris DO Work Phone: Start: 12-31-2023 Electrocardiogram Luis Tarango MD Work Phone: Start: 12-31-2023 Ct angiography chest w/contrast/noncontrast Kindra Lopez CNP Work Phone: Start: 12-31-2023 Ecg routine ecg w/le ast 12 lds w/i&r Kindra Lopez CASE COORDINATOR Work Phone: Start: 12-31-2023 Radiologic exam ches t single view Kindra Lopez CASE COORDINATOR Work Phone: Start: 12-31-2023 Comprehensive metabolic panel Kindra Lopez CNP Work Phone: Start: 12-31-2023 MANCILLA TOP Moe [...] Start: 08-02-2023 EXTRA URINE HILL TUBE M EHRDAMilagro TAVALLAEE Start: 08-02-2023 URINALYSIS WITH REFL EX [...] Auto Different ial panel - Blood JEANIE NAZALLAEE Start: 06-02-2023 Comprehensive metabo lic 2000 panel - Serum or Plasma JEANIE TAVALLAEE Start: 06-02-2023 Hemoglobin A1c/Hemoglobin.total in Blood JEANIE NAZALLAEE Start: 06-02-2023 Lipid panel JEANIE TA VALLAEE Start: 06-02-2023 Magnesium [Mass/volu me] in Serum or Plasma JEANIE JAMIE Start: 06-02-2023 TSH WITH REFLEX TO F REE T4 IF ABNORMAL JEANIEMilagro AYALA Start: 06-02-2023 Urate [Mass/volume] in Serum or Plasma JEANIEMilagro AYALA Start: 06-02-2023 Lipid 1996 panel - S kaveh or Plasma Jeanie Ayala MD Work Phone: Start: 06-02-2023 Thyrotropin [Units/v olume] in Serum or Plasma Jeanie Ayala MD Work Phone: Start: 04-01-2023 Thyrotropin [Units/v olume] in Serum or Plasma Jeanie Ayala MD Work Phone: Start: 01-07-2023 End: 01-07-2023 EKG impression Shilpakathy Douglas Start: 01-07-2023 End: 01-07-2023 EKG impression Abhi Teran Maurice Start: 12-07-2022 End: 12-07-2022 EKG impression Andres Hussein Start: 11-26-2022 Thyrotropin [Units/v olume] in Serum or Plasma Sammie Iglesias MD Work Phone: Start: 11-12-2022 Echocardiography Lamda milagro Ayala Start: 11-12-2022 Echocardiography Veda Ayala Work Phone: Start: 05-10-2022 End: 05-10-2022 EKG impression Dinesh Chun Start: 05-10-2022 End: 05-10-2022 EKG impression Dinesh Chun Start: 03-06-2022 Mammography Jeanie díaz MD Work Phone: Start: 11-27-2021 End: 11-27-2021 EKG impression Larry Eugene Start: 08-05-2021 Lipid 1996 panel - S kaveh or Plasma Sammie Iglesias MD Work Phone: Start: 05-14-2021 End: 05-14-2021 EKG impression Tenisha I Moomaw Start: 05-14-2021 End: 05-14-2021 EKG impression Tenisha I Moomaw Start: 01-29-2021 Microscopic observat ion [Identifier] in [...] by Detection limit <= 0.005 mIU/L Veronika Hernandez Work Phone: Start: 06-18-2020 Assay of copper Urban Purdy Start: 06-18-2020 Assay of folic acid serum Urban Purdy Start: 06-18-2020 Assay of mercury quantitative Urban Purdy Start: 06-18-2020 Blood count complete auto&auto difrntl wbc Urban Purdy Start: 06-18-2020 CELIAC DISEASE SEROLOGY PANEL Urban Purdy Start: 06-18-2020 Ceruloplasmin Urban cronin Start: 06-18-2020 Cyanocobalamin vitamin b-12 Urban Purdy Start: 06-18-2020 Immunoassay analyte quant radioimmunoassay Urban Purdy Start: 06-18-2020 TSH WITH REFLEX TO F [...] sin gle study at rest or stress Zeke Onofre Work Phone: Start: 11-22-2018 Lipid 1996 panel - S kaveh or Plasma Zeke Onofre Work Phone: Start: 06-16-2018 End: 06-16-2018 Urinalysis [...] for Adults (1 - 1-dose 75+ series) [facility] Start: 09-16-2033 DTaP/Tdap/Td Vaccines (4 - Td or Tdap) DTaP/Tdap/Td Vaccines (4 - Td or Tdap) [facility] Start: 09-16-2033 Tetanus vaccination [facility] Start: 2033 RSV Immunization aged 60 or older (1 - 1-dose 60+ series) RSV Immunization aged 60 or older (1 - 1-dose 60+ series) [facility] Start: 03-05-2030 DTaP/Tdap/Td Vaccines (3 - Td or Tdap) DTaP/Tdap/Td Vaccines (3 - Td or Tdap) [facility] Start: 03-05-2030 Tetanus vaccination Tetanus: Every 10yrs [facility] Start: 06-02-2028 Lipid panel Lipid Panel [facility] Start: 08-05-2026 Lipid panel Lipid Panel [facility] Start: 03-15-2026 Creatinine measurement Creatinine Level [facility] Start: 03-15-2026 Potassium measurement Potassium Level [facility] Start: 03-13-2026 Thyroid stimulating hormone measurement TSH Level [facility] Start: 08-22-2025 Depression Monitoring Depression Monitoring [facility] Start: 07-27-2025 End: 07-27-2025 Patient encounter procedure 07/27/2025 2:20 PM EDT Office Visit [facility] [address] [place] [id number] Valentina Chopra MD [address] [place] [address] [facility] Start: 06-18-2025 Influenza vaccination Influenza Vaccine (Season Ended) [facility] Start: 06-07-2025 Depression Monitoring Depression Monitoring [facility] Start: 06-06-2025 Creatinine measurement Creatinine Level [facility] Start: 06-06-2025 Potassium measurement Potassium Level [facility] Start: 05-07-2025 End: 05-07-2025 Patient encounter procedure 05/07/2025 3:00 PM EDT Office Visit [facility] [address] [place] [id number] Sohail Hernandez MD [facility] [address] [place] [address] [facility] Start: 04-27-2025 Screening for malignant neoplasm of breast Mammogram [facility] Start: 04-25-2025 End: 04-25-2025 Patient encounter procedure [facility] Building Start: 04-23-2025 End: 04-23-2025 [facility] Start: 04-20-2025 Yearly Adult Physical Yearly Adult Physical [facility] Start: 04-19-2025 History and physical examination, annual for health maintenance Wellness Visit [facility] Start: 04-04-2025 [facility] Start: 04-04-2025 Consultation [facility] Start: 04-04-2025 Referral to service [facility] [facility] Start: 03-21-2025 [facility] Start: 03-05-2025 Diabetes mellitus screening Diabetes Screening [facility] Start: 03-05-2025 Thyroid stimulating hormone measurement TSH Level [facility] Start: 03-04-2025 Urine screening for protein Urine Microalbumin [facility] Start: 02-19-2025 End: 02-19-2026 EEG MANAGER INSTRUMENTATION MONITORING 2 - 3 DAY EVAL EEG CUSTODIAL MONITORING 2 - 3 DAY EVAL Neurology Routine Focal epilepsy with impairment of consciousness, intractable (HCC) Expected: 02/19/2025 (Approximate), Expires: 02/19/2026 [facility] Work Phone: Comment on above: Expected: 02/19/2025 (Approximate), Expi res: 02/19/2026 Start: 02-19-2025 End: 02-19-2025 Patient encounter procedure 02/19/2025 1:00 PM EDT Office Visit [facility] [address] [place] [address] [address] [place] [phone] Sohail Hernandez MD PhD [address] [place] [address] [address] [place], [place] [phone] [facility] Start: 01-25-2025 End: 01-25-2025 Patient encounter procedure 01/25/2025 2:20 PM EDT Office Visit [facility] [address] [place] [phone] Valentina Chopra MD [address] [place] [address] [facility] Start: 01-25-2025 End: 01-25-2026 Hepatic function 2000 panel - Serum or Plasma Hepatic function panel Lab Routine 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, intractable (HCC) Dizziness Expected: 01/25/2025 (Approximate), Expires: 01/25/2026 [facility] Comment on above: Expected: 01/25/2025 (Approximate), Expi res: 01/25/2026 Start: 01-25-2025 End: 01-25-2026 LEVETIRACETAM LEVEL LEVETIRACETAM LEVEL Lab Rout ine 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, intractable (HCC) Dizziness Expected: 01/25/2025 (Approximate), Expires: 01/25/2026 [facility] Comment on above: Expected: 01/25/2025 (Approximate), Expi res: 01/25/2026 Start: 01-25-2025 End: 01-25-2026 Valproic acid level, total Valproic acid level, total Lab Routine 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, intractable (HCC) Dizziness Expected: 01/25/2025 (Approximate), Expires: 01/25/2026 [facility] Work Phone: Comment on above: Expected: 01/25/2025 (Approximate), Expi res: 01/25/2026 Start: 12-31-2024 Thyroid stimulating hormone measurement TSH Level [facility] Start: 12-08-2024 End: 12-08-2025 EEG MANAGER INSTRUMENTATION MONITORING 2 - 3 DAY EVAL EEG MANAGER INSTRUMENTATION MONITORING 2 - 3 DAY EVAL Neurology Routine Focal epilepsy with impairment of consciousness, intractable (HCC) Expected: 12/08/2024 (Approximate), Expires: 12/08/2025 [facility] Work Phone: Comment on above: Expected: 12/08/2024 (Approximate), Expi res: 12/08/2025 Start: 10-26-2024 End: 10-26-2025 EEG MANAGER INSTRUMENTATION MONITORING 2 - 3 DAY EVAL EEG CUSTODIAL MONITORING 2 - 3 DAY EVAL Neurology Routine Focal epilepsy with impairment of consciousness, intractable (HCC) Expected: 10/26/2024 (Approximate), Expires: 10/26/2025 [facility] Work Phone: Comment on above: Expected: 10/26/2024 (Approximate), Expi res: 10/26/2025 Start: 10-26-2024 End: 10-26-2024 Patient encounter procedure 10/26/2024 12:40 PM EST Office Visit [facility] [address] [place] [phone] Valentina Chopra MD [address] [place] [address] [facility] Start: 10-26-2024 End: 10-26-2024 Patient encounter procedure 10/26/2024 11:30 AM EST Office Visit [facility] [address] [place] [phone] Sohail Hernandez MD PhD [address] [place], [place] [phone] [facility] Start: 09-01-2024 Creatinine measurement Creatinine Level [facility] Start: 09-01-2024 Diabetes mellitus screening Diabetes Screening [facility] Start: 09-01-2024 Potassium measurement Potassium Level [facility] Start: 08-30-2024 End: 08-30-2024 Patient encounter procedure [facility] Start: 08-13-2024 Creatinine measurement Creatinine Level [facility] Start: 08-13-2024 Potassium measurement Potassium Level [facility] Start: 08-11-2024 End: 08-11-2024 Patient encounter procedure 08/11/2024 3:00 PM EDT Office Visit [facility] [address] [place] [phone] Sohail Hernandez MD PhD [address] [place], [place] [phone] [facility] Start: 08-01-2024 Creatinine measurement Creatinine Level [facility] Start: 08-01-2024 Potassium measurement Potassium Level [facility] Start: 07-18-2024 End: 07-18-2024 Patient encounter procedure [facility] Start: 07-07-2024 End: 07-07-2025 EEG MANAGER INSTRUMENTATION MONITORING 2 - 3 DAY EVAL EEG CUSTODIAL MONITORING 2 - 3 DAY EVAL Neurology Routine 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) Expected: 07/07/2024 (Approximate), Expires: 07/07/2025 [facility] Work Phone: Comment on above: Expected: 07/07/2024 (Approximate), Expi res: 07/07/2025 Start: 07-07-2024 End: 07-07-2024 Patient encounter procedure 07/07/2024 11:30 AM EDT Office Visit [facility] [address] [place] [address] [address] [place] [address] Sohail Hernandez MD PhD [address] [place] [address] [address] [place], [place] [phone] [facility] Start: 07-04-2024 End: 07-04-2024 Patient encounter procedure 07/04/2024 11:30 AM EDT Office Visit [address] [phone] Mejia Cullen MD [address] [place] [address] [facility] Start: 06-18-2024 COVID-19 Vaccine ( season) COVID-19 Vaccine ( season) [facility] Start: 06-18-2024 COVID-19 Vaccine ( season) COVID-19 Vaccine ( season) [facility] Start: 06-18-2024 Influenza vaccination [facility] Start: 06-16-2024 End: 06-16-2024 Follow-up encounter 06/16/2024 2:15 PM EDT Follow-Up [facility] [address] Medical Office Building, 5th [place] [phone] Raúl Hudson MD [address] [facility] [address] [place] [address] [facility] Start: 06-13-2024 Creatinine measurement Creatinine Level [facility] Start: 06-13-2024 Potassium measurement Potassium Level [facility] Start: 06-02-2024 Diabetes mellitus screening Diabetes Screening [facility] Start: 06-02-2024 Thyroid stimulating hormone measurement TSH Level [facility] Start: 04-27-2024 End: 04-27-2024 Patient encounter procedure 04/27/2024 2:30 PM EDT Appointment [facility] [address] [place] [address] [facility] Start: 04-17-2024 End: 04-17-2024 Patient encounter procedure 04/17/2024 9:00 AM EDT Office Visit [facility] [address] [place] [address] Valentina Chopra MD [address] [place] [address] [facility] Start: 04-04-2024 End: 04-04-2024 Patient encounter procedure 04/04/2024 11:30 AM EDT Office Visit [facility] [address] [place] [phone] Mejia Cullen MD [address] [place] [id number] [facility] [place] Start: 04-01-2024 Creatinine measurement Creatinine Level [facility] Start: 04-01-2024 Potassium measurement Potassium Level [facility] Start: 04-01-2024 Thyroid stimulating hormone measurement TSH Level [facility] Start: 02-21-2024 Creatinine measurement Creatinine Level [facility] Start: 02-21-2024 Potassium measurement Potassium Level [facility] Start: 02-17-2024 Urine screening for protein CKD: Urine Protein Screening [facility] Start: 02-01-2024 End: 02-01-2024 Patient encounter procedure 02/01/2024 10:30 AM EDT Office Visit [facility] Medical Office Building Jose Alberto [address] [place] [phone] Kindra Downing, SOLAR THERMAL TECHNICIAN-CASE COORDINATOR [address] [place] [address] [facility] Medical Office [facility] Start: 01-30-2024 Screening for malignant neoplasm of cervix [facility] Start: 01-08-2024 Creatinine measurement Creatinine Level [facility] Start: 01-08-2024 Potassium measurement Potassium Level [facility] Start: 01-03-2024 End: 01-02-2025 XR Shoulder - right 2 Views XR shoulder 2+ views right Imaging Routine Chronic right shoulder pain Expected: 01/03/2024, Expires: 01/02/2025 [facility] Work Phone: Comment on above: Expected: 01/03/2024, Expires: Start: 01-03-2024 End: 01-03-2024 Patient encounter procedure 01/03/2024 1:00 PM EDT Office Visit [address] [phone] Mejia Cullen MD [address] [place] [address] [facility] Start: 12-24-2023 End: 12-24-2023 Patient encounter procedure 12/24/2023 10:00 AM EST Office Visit [address] [phone] Mejia Cullen MD [address] [place] [address] [facility] Start: 12-13-2023 End: 12-13-2023 Patient encounter procedure 12/13/2023 11:15 AM EST Office Visit [facility] [address] [place] [phone] Jeanie Ayala MD [address] [place] [place] [address] [facility] Start: 11-26-2023 Thyroid stimulating hormone measurement TSH Level [facility] Start: 11-23-2023 End: 11-23-2023 Patient encounter procedure 11/23/2023 1:30 PM EST Office Visit [facility] [address] [place] [phone] Jeffrey Kumar MD [address] [place] [address] [facility] Start: 11-12-2023 Echocardiography Echocardiogram [facility] Start: 11-10-2023 End: 11-10-2023 Patient encounter procedure 11/10/2023 10:30 AM EST Office Visit [facility] Medical Office Building [address] [place] [phone] Valentina Munoz MD [facility] [address] [facility] Medical Office, [address] [address] [facility] Medical Office [facility] Start: 11-08-2023 End: 11-08-2023 Patient encounter procedure 11/08/2023 10:45 AM EST Office Visit [facility] Medicine [address] [facility] [place] [phone] Jeanie Ayala MD [address] [facility] [place] [address] [facility] Start: 10-29-2023 End: 10-29-2023 Patient encounter procedure 10/29/2023 10:45 AM EST Office Visit [facility] Medical Office Building [address] [place] [address] Matthew Pérez MD [address] [facility] Medical Office, [place] [phone] [facility] Building Start: 10-14-2023 End: 10-14-2023 Admission to same day surgery center 10/14/2023 7:30 AM EST - 10/14/2023 9:20 AM EST Surgery [facility] [place] [address] [place] [phone] Matthew Pérez MD [address] [facility] Medical Office, [place] [address] Exploration Laparoscopy [77394 (CPT )] [facility] [place] Comment on above: Exploration Laparoscopy [56628 (CPT )] Start: 10-14-2023 End: 10-14-2023 Insertion [...] physician 10/14/2023 6:00 AM EST Hospital Encounter [facility] [place] [address] [place] [phone] Matthew Pérez MD [address] [facility] Medical Office, [place] [phone] [facility] [place] Start: 10-05-2023 End: 10-05-2023 Patient encounter procedure [facility] Start: 09-28-2023 End: 09-28-2023 Patient encounter procedure 09/28/2023 11:20 AM EST Office Visit [facility] [address] [place] [phone] Satya Faith MD [address] [place] [address] [facility] Start: 09-24-2023 End: 09-24-2023 Patient encounter procedure 09/24/2023 10:30 AM EST Office Visit [facility] Medical Office Building [address] [place] [address] Matthew Pérez MD [address] [facility] Medical Office, [address] [place], [place] [phone] [facility] Medical Office Building Start: 09-21-2023 End: 09-21-2024 Holter monitor study Holter Or Event Cardiac [facility] Routine Preop testing Tachycardia Expected: 09/21/2023, Expires: 09/21/2024 [facility] Work Phone: Comment on above: Expected: 09/21/2023, Expires: Start: 09-21-2023 End: 09-21-2025 Heart Transthoracic Transthoracic Echo (TTE) Complete Echocardiography Routine Preop testing Tachycardia Expected: 09/21/2023 (Approximate), Expires: 09/21/2025 [facility] Service Area Work Phone: Comment on above: Expected: 09/21/2023 (Approximate), Expi res: 09/21/2025 Start: 09-21-2023 End: 09-21-2023 Patient encounter procedure 09/21/2023 1:30 PM EST Office Visit [facility] Medical Office Building [address] [place] [phone] Everett Walton MD [address] [facility], [address] [place] [address] [facility] Medical Office Building Start: 09-16-2023 End: 09-16-2023 Admission to same day surgery center 09/16/2023 10:30 AM EST - 09/16/2023 12:20 PM EST Surgery [facility] [place] [address] [place] [phone] Matthew Pérez MD [address] [facility] Medical Office, [facility] 2 [place] [address] Exploration Laparoscopy [32076 (CPT )] [facility] [place] Comment on above: Exploration Laparoscopy [73183 (CPT )] Start: 09-16-2023 End: 09-16-2023 Insertion intrauterine device iud Insertion Device Uterus Pelvic pain Irregular bleeding Preop testing 09/16/2023 10:30 AM EST [facility] Start: 09-16-2023 End: 09-16-2023 Laps abd prtm&omentum dx w/wo spec br/wa spx Exploration Laparoscopy Pelvic pain Irregular bleeding Preop testing 09/16/2023 10:30 AM EST [facility] Start: 09-16-2023 Subsequent hospital visit by physician 09/16/2023 9:00 AM EST Hospital Encounter [facility] [place] [address] [place], [place] [phone] Matthew Pérez MD [address] [facility] Medical Office, [place] [address] [facility] Start: 2023 Administration of herpes zoster vaccine Zoster Vaccines (1 of 2) [facility] Start: 2023 Screening for malignant neoplasm of colon Flexible sigmoidoscopy [facility] Start: 2023 Zoster vaccine hzv live for subcutaneous use ZOSTER (SHINGLES) VACCINE (1 of 2) [facility] Start: 2023 Zoster Vaccines (1 of 2) Zoster Vaccines (1 of 2) [facility] Start: 09-08-2023 End: 09-08-2025 NM Heart Perfusion W stress and W radionuclide IV Nuclear Stress Test Cardiac Nuclear Medicine Routine Abnormal EKG Chest pain, unspecified type Expected: 09/08/2023 (Approximate), Expires: 09/08/2025 [facility] Service Area Work Phone: Comment on above: Expected: 09/08/2023 (Approximate), Expi res: 09/08/2025 Start: 09-08-2023 End: 09-08-2023 Patient encounter procedure 09/08/2023 11:15 AM EST Office Visit [facility] [address] [place] [phone] Jeanie Ayala MD [address] [place] [address] [facility] Start: 09-02-2023 End: 08-19-2024 Valproic acid level, total Valproic acid level, total Lab Routine 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) Expected: 09/02/2023 (Approximate), Expires: 08/19/2024 [facility] Comment on above: Expected: 09/02/2023 (Approximate), Expi res: 08/19/2024 Start: 08-31-2023 End: 08-31-2023 Patient encounter procedure 08/31/2023 10:00 AM EST Office Visit [facility] [address] [place] [phone] Jeanie Ayala MD [address] [place] [address] [facility] Start: 08-19-2023 End: 08-19-2024 Levetiracetam level Levetiracetam level Lab Rout ine 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) Expected: 08/19/2023 (Approximate), Expires: 08/19/2024 [facility] Work Phone: Comment on above: Expected: 08/19/2023 (Approximate), Expi res: 08/19/2024 Start: 08-18-2023 End: 08-18-2023 Patient encounter procedure 08/18/2023 2:00 PM EDT Office Visit [facility] [address] [place] [phone] Jeanie Ayala MD [address] [place] [address] [facility] Start: 08-16-2023 End: 08-23-2023 Bacteria identified in Urine by Culture Urine culture Microbiology Routine Pelvic pain Expected: 08/16/2023 (Approximate), Expires: 08/23/2023 [facility] Work Phone: Comment on above: Expected: 08/16/2023 (Approximate), Expi res: 08/23/2023 Start: 08-16-2023 End: 08-16-2024 Chlamydia trachomatis and Neisseria gonorrhoeae DNA [Identifier] in Unspecified specimen by CHIARA with probe detection C. Trachomatis / N. Gonorrhoeae, Amplified Detection Lab Routine Screen for STD (sexually transmitted disease) Pelvic pain Expected: 08/16/2023 (Approximate), Expires: 08/16/2024 [facility] Service Area Work Phone: Comment on above: Expected: 08/16/2023 (Approximate), Expi res: 08/16/2024 Start: 08-16-2023 End: 08-16-2023 Patient encounter procedure 08/16/2023 10:30 AM EDT Procedure Visit [facility] Medical Office Building [address] [place] [phone] Matthew Pérez MD [address] [facility] Medical Office, [facility] [address] [place] [phone] [facility] Medical Office Building Start: 08-11-2023 End: 08-11-2023 Patient encounter procedure 08/11/2023 9:45 AM EDT Office Visit [facility] [address] [place] [phone] Jeanie Ayala MD [address] [place] [address] [facility] Start: 08-06-2023 End: 08-06-2023 Patient encounter procedure [facility] Start: 06-18-2023 COVID-19 Vaccine ( season) COVID-19 Vaccine ( season) [facility] Start: 06-18-2023 Influenza vaccination [facility] Start: 06-17-2023 OTRECHEADT, Provider: Naya Giles, Status: Pen, Time: 10:30 AM OTRECHEADT, Provider: Naya Giles, Status: Pen, Time: 10:30 AM [facility] Work Phone: Start: 06-15-2023 OTRECHEADT, Provider: Naya Giles, Status: Pen, Time: 11:30 AM OTRECHEADT, Provider: Naya Giles, Status: Pen, Time: 11:30 AM [facility] Work Phone: Start: 06-15-2023 Patient encounter procedure Outpatient [facility] [address] [place] [address] Start: 15-Jun-2023 11:30 Reanna Kemp Intent [facility] Start: 06-10-2023 [email or web address], Provider: Kari Ocampo, Status: Pen, Time: 10:30 AM OTFUADULT4, Provider: Kari Ocampo, Status: Pen, Time: 10:30 AM [facility] Work Phone: Start: 06-08-2023 [email or web address], Provider: Naya Giles, Status: Pen, Time: 11:15 AM OTFUADULT4, Provider: Naya Giles, Status: Pen, Time: 11:15 AM [facility] Work Phone: Start: 06-04-2023 OTFUADULT4, Provider: Kari Ocampo, Status: Pen, Time: 8:45 AM OTFUADULT4, Provider: Kari Ocampo, Status: Pen, Time: 8:45 AM [facility] Work Phone: Start: 06-03-2023 OTFUADULT4, Provider: Kari Ocampo, Status: Pen, Time: 10:30 AM OTFUADULT4, Provider: Kari Ocampo, Status: Pen, Time: 10:30 AM [facility]: Start: 05-28-2023 PTRECHECKA, Provider: Trice Tejada, Status: Pen, Time: 10:45 AM PTRECHECKA, Provider: Trice Tejada, Status: Pen, Time: 10:45 AM [facility]: Start: 05-26-2023 AQUATICFU4, Provider: Pippa Freeman, Status: Pen, Time: 10:45 AM AQUATICFU4, Provider: Pippa Freeman, Status: Pen, Time: 10:45 AM [facility] Work [facility]: Start: 05-26-2023 OTFUADULT4, Provider: Kari Ocampo, Status: Pen, Time: 9:15 AM OTFUADULT4, Provider: Kari Ocampo, Status: Pen, Time: 9:15 AM [facility] Work Phone: Start: 05-21-2023 AQUATICFU4, Provider: Pippa Freeman, Status: Pen, Time: 10:45 AM AQUATICFU4, Provider: Pippa Freeman, Status: Pen, Time: 10:45 AM [facility]: Start: 05-19-2023 AQUATICFU4, Provider: Pippa Freeman, Status: Pen, Time: 11:30 AM AQUATICFU4, Provider: Pippa Freeman, Status: Pen, Time: 11:30 AM [facility] Work [facility]: Start: 05-14-2023 AQUATICFU4, Provider: Pippa Freeman, Status: Pen, Time: 8:30 AM AQUATICFU4, Provider: Pippa Freeman, Status: Pen, Time: 8:30 AM [facility] Work Phone: Start: 05-11-2023 AQUATICFU4, Provider: Salma Gamboa, Status: Pen, Time: 1:00 PM AQUATICFU4, Provider: Salma Gamboa, Status: Pen, Time: 1:00 PM [facility] Work Phone: Start: 05-07-2023 AQUATICFU4, Provider: Pippa Freeman, Status: Pen, Time: 10:00 AM AQUATICFU4, Provider: Pippa Freeman, Status: Pen, Time: 10:00 AM [facility] Work Phone: Start: 05-05-2023 AQUATICFU4, Provider: Pippa Freeman, Status: Pen, Time: 11:30 AM AQUATICFU4, Provider: Pippa Freeman, Status: Pen, Time: 11:30 AM [facility] Work [facility]: Start: 04-30-2023 FUV, Provider: Matthew Pérez, Status: Pen, Time: 10:45 AM FUV, Provider: Matthew Pérez, Status: Pen, Time: 10:[address] Work Phone: Start: 04-28-2023 PTRECHADUL, Provider: Trice Tejada, Status: Pen, Time: 11:45 AM PTRECHADUL, Provider: Trice Tejada, Status: Pen, Time: 11:45 AM [facility] Work Phone: Start: 04-28-2023 AQUATICFU4, Provider: Pippa Freeman, Status: Pen, Time: 10:45 AM AQUATICFU4, Provider: Pippa Freeman, Status: Pen, Time: 10:45 AM [facility] Work [facility]: Start: 04-28-2023 Patient encounter procedure [facility] Start: 04-27-2023 OTEVALADUL, Provider: Naya Giles, Status: Pen, Time: 10:45 AM OTEVALADUL, Provider: Naya Giles, Status: Pen, Time: 10:45 AM [facility] Work Phone: Start: 04-26-2023 AQUATICFU4, Provider: Pippa Freeman, Status: Pen, Time: 12:15 PM AQUATICFU4, Provider: Pippa Freeman, Status: Pen, Time: 12:15 PM [facility] Work Phone: Start: 04-26-2023 Patient encounter procedure [facility] Start: 04-23-2023 AQUATICFU4, Provider: Pippa Freeman, Status: Pen, Time: 9:15 AM AQUATICFU4, Provider: Pippa Freeman, Status: Pen, Time: 9:15 AM [facility] Work Phone: Start: 04-23-2023 Patient encounter procedure [facility] Start: 04-14-2023 AQUATICFU4, Provider: Pippa Freeman, Status: Pen, Time: 10:00 AM AQUATICFU4, Provider: Pippa Freeman, Status: Pen, Time: 10:00 AM [facility] Work Phone: Start: 04-14-2023 Patient encounter procedure [facility] Start: 04-09-2023 AQUATICFU4, Provider: Pippa Freeman, Status: Pen, Time: 10:00 AM AQUATICFU4, Provider: Pippa Freeman, Status: Pen, Time: 10:00 AM [facility] Work Phone: Start: 04-09-2023 Patient encounter procedure [facility] Start: 04-07-2023 AQUATICFU4, Provider: Pippa Freeman, Status: Pen, Time: 10:00 AM AQUATICFU4, Provider: Pippa Freeman, Status: Pen, Time: 10:00 AM [facility] Work Phone: Start: 04-07-2023 Patient encounter procedure [facility] Start: 04-05-2023 NEWPROB, Provider: Matthew Pérez, Status: Pen, Time: 1:15 PM NEWPROB, Provider: Matthew Pérez, Status: Pen, Time: 1:15 PM [facility] Work Phone: Start: 04-05-2023 [facility] Start: 04-02-2023 AQUATICFU4, Provider: Pippa Freeman, Status: Pen, Time: 10:00 AM AQUATICFU4, Provider: Pippa Freeman, Status: Pen, Time: 10:00 AM [facility] Work Phone: Start: 04-02-2023 Patient encounter procedure Outpatient [facility] [address] [place] [address] Start: 02-Apr-2023 10:00 Reanna Kemp Intent [facility] Start: 03-26-2023 AQUATICFU4, Provider: Pippa Freeman, Status: Pen, Time: 9:15 AM AQUATICFU4, Provider: Pippa Freeman, Status: Pen, Time: 9:15 AM [facility] Work Phone: Start: 03-10-2023 PTRECHADUL, Provider: Trice Tejada, Status: Pen, Time: 10:00 AM PTRECHADUL, Provider: Trice Tejada, Status: Pen, Time: 10:00 AM [facility] Work Phone: Start: 03-08-2023 AQUATICFU4, Provider: Pippa Freeman, Status: Pen, Time: 1:00 PM AQUATICFU4, Provider: Pippa Freeman, Status: Pen, Time: 1:00 PM [facility] Work Phone: Start: 03-06-2023 Screening for malignant neoplasm of breast Mammogram [facility] Start: 03-03-2023 End: 03-03-2023 Patient encounter procedure 03/03/2023 2:00 PM EDT Office Visit [facility] Internal Medicine [address] [place] [address] Jeanie Ayala MD [address] [place] [address] [facility] Internal Medicine Start: 03-03-2023 AQUATICFU4, Provider: Pippa Freeman, Status: Pen, Time: 10:00 AM AQUATICFU4, Provider: Pippa Freeman, Status: Pen, Time: 10:00 AM [facility] Work Phone: Start: 03-01-2023 AQUATICFU4, Provider: Pippa Freeman, Status: Pen, Time: 1:00 PM AQUATICFU4, Provider: Pippa Freeman, Status: Pen, Time: 1:00 PM [facility] Work Phone: Start: 02-26-2023 AQUATICFU4, Provider: Pippa Freeman, Status: Pen, Time: 10:45 AM AQUATICFU4, Provider: Pippa Freeman, Status: Pen, Time: 10:45 AM [facility] Work Phone: Start: 02-24-2023 FUV, Provider: Jeison Clancy, Status: Pen, Time: 3:00 PM FUV, Provider: Jeison Clancy, Status: Pen, Time: 3:00 PM [facility] DO Work Phone: Start: 02-24-2023 FUV, Provider: Jeison Clancy, Status: Pen, Time: 11:00 AM FUV, Provider: Jeison Clancy, Status: Pen, Time: 11:00 AM [facility] Work Phone: Start: 02-19-2023 AQUATICFU4, Provider: Pippa Freeman, Status: Pen, Time: 10:45 AM AQUATICFU4, Provider: Pippa Freeman, Status: Pen, Time: 10:45 AM [facility] Start: 02-15-2023 AQUATICFU4, Provider: Pippa Freeman, Status: Pen, Time: 1:45 PM AQUATICFU4, Provider: Pippa Freeman, Status: Pen, Time: 1:45 PM [facility] Work Phone: Start: 02-12-2023 AQUATICFU4, Provider: Pippa Freeman, Status: Pen, Time: 7:45 AM AQUATICFU4, Provider: Pippa Freeman, Status: Pen, Time: 7:45 AM [facility] Work [facility]: Start: 02-05-2023 COLON, Provider: Jeanie Ayala, Status: Pen, Time: 9:30 AM COLON, Provider: Jeanie Ayala, Status: Pen, Time: 9:30 AM [facility] Work [facility]: Start: 02-05-2023 Patient encounter procedure [facility] Preadmit Start: 02-04-2023 Patient encounter procedure [facility] Med On[facility] Start: 01-29-2023 Patient encounter procedure [facility] Start: 01-29-2023 PTRECHADUL, Provider: Trice Tejada, Status: Pen, Time: 8:30 AM PTRECHADUL, Provider: Trice Tejada, Status: Pen, Time: 8:30 AM [facility] Orthopedics and Sports Medicine 300 Work Phone: Start: 01-26-2023 NPV, Provider: Jeison Clancy, Status: Pen, Time: 11:30 AM NPV, Provider: Jeison Clancy, Status: Pen, Time: 11:30 AM [facility] Work Phone: Start: 01-26-2023 Patient encounter [facility] Start: 01-19-2023 FUV, Provider: Reanna Kemp, Status: Pen, Time: 11:00 AM FUV, Provider: Reanna Kemp, Status: Pen, Time: 11:00 AM [facility] Orthopedics and Sports Medicine 300 Work Phone: Start: 01-19-2023 Patient encounter procedure [facility] Orthopedics [place] Start: 01-15-2023 PTRECHADUL, Provider: Trice Tejada, Status: Pen, Time: 10:15 AM PTRECHADUL, Provider: Trice Tejada, Status: Pen, Time: 10:15 AM [facility] Work [facility]: Start: 01-15-2023 AQUATICFU4, Provider: Pippa Freeman, Status: Pen, Time: 9:15 AM AQUATICFU4, Provider: Pippa Freeman, Status: Pen, Time: 9:15 AM [facility] [place] Work Phone: Start: 01-15-2023 Patient encounter procedure [facility] Start: 01-13-2023 NPV, Provider: Jeison Clancy, Status: Pen, Time: 1:15 PM NPV, Provider: Jeison Clancy, Status: Pen, Time: 1:15 PM [facility] Work Phone: Start: 01-13-2023 Patient encounter procedure [facility] Start: 01-11-2023 AQUATICFU4, Provider: Pippa Freeman, Status: Pen, Time: 1:45 PM AQUATICFU4, Provider: Pippa Freeman, Status: Pen, Time: 1:45 PM [facility] Work Phone: Start: 01-11-2023 Patient encounter procedure [facility] Start: 01-08-2023 AQUATICFU4, Provider: Pippa Freeman, Status: Pen, Time: 9:15 AM AQUATICFU4, Provider: Pippa Freeman, Status: Pen, Time: 9:15 AM [facility] Work Phone: Start: 01-08-2023 Patient encounter procedure [facility] Start: 01-04-2023 AQUATICFU4, Provider: Pippa Freeman, Status: Pen, Time: 1:45 PM AQUATICFU4, Provider: Pippa Freeman, Status: Pen, Time: 1:45 PM [facility] Work Phone: Start: 01-04-2023 Patient encounter procedure [facility] Start: 12-30-2022 AQUATICFU4, Provider: Pippa Freeman, Status: Pen, Time: 9:15 AM AQUATICFU4, Provider: Pippa Freeman, Status: Pen, Time: 9:15 AM [facility] Work Phone: Start: 12-28-2022 AQUATICFU4, Provider: Pippa Freeman, Status: Pen, Time: 2:30 PM AQUATICFU4, Provider: Pippa Freeman, Status: Pen, Time: 2:30 PM [facility] Work Phone: Start: 12-25-2022 AQUATICFU4, Provider: Pippa Freeman, Status: Pen, Time: 9:15 AM AQUATICFU4, Provider: Pippa Freeman, Status: Pen, Time: 9:15 AM [facility] Work Phone: Start: 12-24-2022 NEWPROB, Provider: Kellie Avery, Status: Pen, Time: 10:15 AM NEWPROB, Provider: Kellie Avery, Status: Pen, Time: 10:15 AM [facility] Work Phone: Start: 12-24-2022 NPV, Provider: Jeison Clancy, Status: Pen, Time: 9:30 AM NPV, Provider: Jeison Clancy, Status: Pen, Time: 9:30 AM [facility] Work Phone: Start: 12-24-2022 Patient encounter procedure [facility] Urology Baptism Start: 03-08-2023 NPV, Provider: Young,Jeison, Status: Pen, Time: 2:30 PM NPV, Provider: Jeison Clancy, Status: Pen, Time: 2:30 PM [facility] Work Phone: Start: 12-23-2022 FUV, Provider: Rayne Lin, Status: Pen, Time: 11:15 AM FUV, Provider: Rayne Lin, Status: Pen, Time: 11:15 AM [facility] Work Phone: Start: 12-23-2022 FUV, Provider: Reanna Kemp, Status: Pen, Time: 10:00 AM FUV, Provider: Reanna Kemp, Status: Pen, Time: 10:00 AM [facility] Work Phone: Start: 12-23-2022 Patient encounter procedure [facility] Cardiology Baptism Start: 12-17-2022 Patient encounter procedure [facility] Start: 12-17-2022 PTEVALADUL, Provider: Trice Tejada, Status: Pen, Time: 9:30 AM PTEVALADUL, Provider: Trice Tejada, Status: Pen, Time: 9:30 AM [facility] Work Phone: Start: 12-15-2022 FUV, Provider: Jeanie Ayala, Status: Pen, Time: 10:30 AM FUV, Provider: Jeanie Ayala, Status: Pen, Time: 10:30 AM [facility] Internal Medicine Work Phone: Start: 12-15-2022 Patient encounter procedure [facility] Medicine [place] Start: 12-02-2022 Patient encounter procedure [facility] Start: 12-02-2022 PTEVALADUL, Provider: Trice Tejada, Status: Pen, Time: 9:30 AM PTEVALADUL, Provider: Trice Tejada, Status: Pen, Time: 9:30 AM [facility] Internal Medicine Work Phone: Start: 11-12-2022 HOLTER 48, Provider: EUNICE DIAGNOSTIC THERAPIST,SMCMONITOR, Status: Pen, Time: 2:00 PM HOLTER 48, Provider: EUNICE DIAGNOSTIC THERAPIST,SMCMONITOR, Status: Pen, Time: 2:00 PM YC[facility] [address] [place] [facility] Work Phone: Start: 11-12-2022 ECHO, Provider: EUNICE HHVI ECHO 1,SMCECHO1, Status: Pen, Time: 1:00 PM ECHO, Provider: EUNICE HHVI ECHO 1,SMCECHO1, Status: Pen, Time: 1:00 PM ER-Otiybcylhi-[address] [place] [facility] Work Phone: Start: 11-10-2022 FUV, Provider: Reanna Kemp, Status: Pen, Time: 2:00 PM FUV, Provider: Reanna Kemp, Status: Pen, Time: 2:00 PM [facility] Orthopedics [facility] 300 Work Phone: Start: 11-10-2022 FUV, Provider: Reanna Kemp, Status: Pen, Time: 10:00 AM FUV, Provider: Reanna Kemp, Status: Pen, Time: 10:00 AM [facility] Work Phone: Start: 11-05-2022 NPV, Provider: Jeffy Ortiz, Status: Pen, Time: 11:15 AM NPV, Provider: Jeffy Ortiz, Status: Pen, Time: 11:15 AM [facility] Work Phone: Start: 09-16-2022 FUV, Provider: Reanna Kemp, Status: Pen, Time: 10:30 AM FUV, Provider: Reanna Kemp, Status: Pen, Time: 10:30 AM [facility] Sports Medicine 300 Work Phone: Start: 09-16-2022 Patient encounter procedure [facility] Start: 09-15-2022 FUV, Provider: Jeanie Ayala, Status: Pen, Time: 9:45 AM FUV, Provider: Jeanie Ayala, Status: Pen, Time: 9:45 AM [facility] Work Phone: Start: 09-15-2022 Patient encounter procedure [facility] Medicine [place] Start: 08-19-2022 FUV, Provider: Reanna Kemp, Status: Pen, Time: 10:30 AM FUV, Provider: Reanna Kemp, Status: Pen, Time: 10:30 AM [facility] Orthopedics and Sports Medicine 300 Work Phone: Start: 08-18-2022 FUV, Provider: Jeanie Ayala, Status: Pen, Time: 9:45 AM FUV, Provider: Jeanie Ayala, Status: Pen, Time: 9:45 AM [facility] Work Phone: Start: 08-05-2022 NEWPROB, Provider: Matthew Pérez, Status: Pen, Time: 1:00 PM NEWPROB, Provider: Matthew Pérez, Status: Pen, Time: 1:00 PM [facility] Work Phone: Start: 08-05-2022 Diabetes mellitus screening Diabetes Screening [facility] Start: 08-04-2022 FUV, Provider: Jeanie Ayala, Status: Pen, Time: 1:30 PM FUV, Provider: Jeanie Ayala, Status: Pen, Time: 1:30 PM [facility] Work Phone: Start: 07-28-2022 Patient encounter procedure [facility] Start: 07-21-2022 EEG, Provider: NEURO EEG [id number] EQUIPMENT,[id number], Status: Pen, Time: 1:00 PM EEG, Provider: NEURO EEG SMC02 EQUIPMENT,[id number], Status: Pen, Time: 1:00 PM [facility] Work Phone: Start: 07-21-2022 FUV, Provider: Jeanie Ayala, Status: Pen, Time: 9:15 AM FUV, Provider: Jeanie Ayala, Status: Pen, Time: 9:15 AM [facility] Work Phone: Start: 06-18-2022 Influenza vaccination [facility] Start: 06-02-2022 FUV, Provider: Jeanie Ayala, Status: Pen, Time: 10:30 AM FUV, Provider: Jeanie Ayala, Status: Pen, Time: 10:30 AM [facility] Work Phone: Start: 06-02-2022 Patient encounter procedure [facility] Start: 05-10-2022 End: 05-12-2022 Iohexol (Omnipaque 350-Radiology Contrast) . ; (OMNIPAQUE)DOSE = 102 mL IntraVenous Push OnceCa.5 mL/Kg/DOSE x 68 Kg = 102 mL/Dose (Daily Total is 102 mL) Start: 09-May-2022 End: 11-May-2022 Ordered: 09-May-2022 Dinesh Chun [facility] Start: 04-06-2022 FUV, Provider: Jeanie Ayala, Status: Pen, Time: 12:30 PM FUV, Provider: Jeanie Ayala, Status: Pen, Time: 12:30 PM [facility] Work Phone: Start: 03-04-2022 FUV, Provider: Jeanie Ayala, Status: Pen, Time: 2:00 PM FUV, Provider: Jeanie Ayala, Status: Pen, Time: 2:00 PM [facility] Work Phone: Start: 03-04-2022 Patient encounter procedure [facility] Start: 02-04-2022 FUV, Provider: Jeanie Ayala, Status: Pen, Time: 11:30 AM FUV, Provider: Jeanie Ayala, Status: Pen, Time: 11:30 AM [facility] Work Phone: Start: 01-30-2022 Patient encounter procedure [facility] Start: 01-27-2022 Patient encounter procedure [facility] Start: 01-22-2022 Past history of procedure History of esophagogastroduodenoscopy (EGD) Date: 22-Jan-2022 [facility] Start: 01-22-2022 EGD, Provider: Jeanie Ayala, Status: Pen, Time: 11:00 AM EGD, Provider: Jeanie Ayala, Status: Pen, Time: 11:00 AM [facility] Work Phone: Start: 01-07-2022 FUV, Provider: Jeanie Ayala, Status: Pen, Time: 11:45 AM FUV, Provider: Jeanie Ayala, Status: Pen, Time: 11:45 AM [facility] Work Phone: Start: 12-31-2021 FUV, Provider: Jeanie Ayala, Status: Pen, Time: 3:30 PM FUV, Provider: Jeanie Ayala, Status: Pen, Time: 3:30 PM [facility] Work Phone: Start: 12-31-2021 Patient encounter procedure [facility] Start: 12-26-2021 Patient encounter procedure [facility] Start: 12-17-2021 FUV, Provider: Jeanie Ayala, Status: Pen, Time: 1:45 PM FUV, Provider: Jeanie Ayala, Status: Pen, Time: 1:45 PM [facility] Work Phone: Start: 12-17-2021 Patient encounter procedure [facility] Start: 12-15-2021 Patient encounter procedure Outpatient [facility] [address] [place] [address] Start: 15-Dec-2021 9:00 Jeanie Ayala M Intent [facility] Start: 12-08-2021 FUV, Provider: Jeanie Ayala, Status: Pen, Time: 11:30 AM FUV, Provider: Jeanie Ayala, Status: Pen, Time: 11:30 AM [facility] Work Phone: Start: 12-08-2021 Patient encounter procedure [facility] Start: 12-01-2021 Depression screening using PHQ-9 (Patient Health Questionnaire 9) score Depression Screening/Follow-Up (PHQ-2/9) [facility] Start: 09-30-2021 Depression Remission Assessment (PHQ9) Depression Remission Assessment (PHQ9) [facility] Start: 08-12-2021 FUV, Provider: Jeanie Ayala, Status: Pen, Time: 10:15 AM FUV, Provider: Jeanie Ayala, Status: Pen, Time: 10:15 AM [facility] Work Phone: Start: 08-12-2021 Patient encounter procedure [facility] Start: 07-24-2021 COLON, Provider: Jeanie Ayala, Status: Pen, Time: 10:00 AM COLON, Provider: Jeanie Ayala, Status: Pen, Time: 10:00 AM [facility] Work Phone: Start: 07-24-2021 Patient encounter procedure [facility] Preadmit Start: 07-17-2021 FUV, Provider: Sammie Iglesias, Status: Pen, Time: 10:45 AM FUV, Provider: Sammie Iglesias, Status: Pen, Time: 10:45 AM [place] [address] [employer] Work Phone: Start: 07-14-2021 FUV, Provider: Matthew Pérez, Status: Pen, Time: 1:15 PM FUV, Provider: Matthew Pérez, Status: Pen, Time: 1:15 PM [place] [address] [employer] Work Phone: Start: 07-14-2021 Patient encounter procedure [facility] Start: 06-24-2021 FUV, Provider: Jeanie Ayala, Status: Pen, Time: 11:30 AM FUV, Provider: Jeanie Ayala, Status: Pen, Time: 11:30 AM [facility] Work Phone: Start: 09-07-2021 Patient encounter procedure [facility] Start: 06-18-2021 Influenza vaccination Sequential Influenza Vaccine (#1) [facility] Start: 01-04-2021 Screening for malignant neoplasm of cervix [facility] Start: 01-04-2021 Tetanus vaccination TETANUS EVERY 10 YR [facility] Start: 12-18-2020 End: 12-18-2020 Office Visit 12/18/2020 Office Visit Otolaryngology Julian Galeana MD [facility] Jacob Tello [address] [place] [address] [phone] [facility] Start: 12-10-2020 End: 12-10-2020 Office Visit 12/10/2020 Office Visit Nedra Lima, CASE COORDINATOR [address] [place] [address] [phone] [facility] Primary Care Physicians Start: 06-18-2020 Influenza vaccination given Sequential Influenza Vaccine (#1) [facility] Start: 06-08-2019 End: 06-08-2019 Office Visit 06/08/2019 Office Visit Nedra Lima CASE COORDINATOR [address] [place] [address] [phone] [facility] Physicians Start: 03-23-2019 End: 03-23-2019 Office Visit 03/23/2019 Office Visit Nedra Lima CASE COORDINATOR [address] [place] [address] [phone] [facility] Primary [facility] Physicians Start: 03-08-2019 End: 03-08-2019 Office Visit 03/08/2019 Office Visit Nedra Lima CASE COORDINATOR [address] [place] [address] [phone] [facility] Phys[facility] Start: 03-01-2019 End: 03-01-2019 Office Visit 03/01/2019 Office Visit Nedra Lima, CASE COORDINATOR [address] [place] [address] [phone] [facility] Start: 01-03-2019 End: 01-03-2019 Appointment 01/03/2019 Appointment Cardiology Zeke Onofre MD [address] [facility] [place] [address] [phone] [facility] Start: 12-26-2018 End: 12-26-2018 Appointment 12/26/2018 Appointment Cardiology Zeke Onofre [facility] [address] [facility] [place] [address] [phone] [facility] Start: 12-23-2018 End: 12-23-2018 Office Visit 12/23/2018 Office Visit Dimas Woods MD [address] [place] [address] [phone] [facility] Physicians Start: 12-08-2018 End: 12-08-2018 Appointment 12/08/2018 Appointment Cardiology Zeke Onofre MD [address] [facility] [place] [address] [phone] [facility] Start: 12-08-2018 End: 12-08-2018 Appointment 12/08/2018 Appointment Zeke Morris MD [address] [place] [address] [phone] [facility] Start: 11-11-2018 End: 11-11-2018 Ambulatory 11/11/2018 Office Visit Prim Nedra Cuevas, CASE COORDINATOR [address] [place] [address] [phone] [facility] Start: 11-01-2018 End: 11-01-2018 Ambulatory 11/01/2018 Office Visit Nedra Vines, CASE COORDINATOR [address] [place] [address] [phone] Zeke Onofre MD [address] [place] [address] [facility] Start: 2018 Screening for malignant neoplasm of colon COLORECTAL CANCER SCREENING DISCUSSION [facility] Start: 08-25-2018 End: 08-25-2018 Ambulatory 08/25/2018 Office Visit Dimas Woods MD [address] [facility] [place] [address] [phone] [facility] Physicians Start: 06-18-2018 Influenza vaccination SEQUENTIAL INFLUENZA VACCINE (#1) [facility] Start: 06-18-2018 Influenza vaccination given SEQUENTIAL INFLUENZA VACCINE (#1) [facility] Start: 06-16-2018 End: 06-16-2018 Ambulatory 06/16/2018 Office Visit Dimas Woods MD [address] [place] [address] [phone] [facility] Start: 04-05-2018 End: 04-05-2018 Ambulatory [facility] Physicians Start: 08-20-2017 Ambulatory 08/20/2017 Office Visit Dimas Woods MD [address] [facility] [place] [address] [phone] [facility] Physicians Start: 08-10-2017 Ambulatory 08/10/2017 Office Visit Dimas Woods MD [address] [facility] [place] [address] [phone] [facility] Primary Care Physicians Start: 07-09-2017 Ambulatory 07/09/2017 Follow-Up General Surgery Williams Lobo MD [address] [place] [address] [phone] [facility] Start: 07-06-2017 Ambulatory 07/06/2017 Office Visit Dimas Woods MD [address] [place] [address] [phone] [facility] Primary Care Physicians Start: 06-18-2017 Influenza vaccination SEQUENTIAL INFLUENZA VACCINE (#1) [facility] Work Phone: Start: 2013 Lipid panel LIPID SCREENING [facility] Start: 2013 Screening for malignant neoplasm of breast [facility] Start: 2003 Screening for malignant neoplasm of cervix [facility] Start: 1994 Screening for malignant neoplasm of cervix [facility] Start: 1992 Hepatitis A Vaccines (1 of 2 - Risk 2-dose series) Hepatitis A Vaccines (1 of 2 - Risk 2-dose series) [facility] Start: 1992 Hepatitis B vaccination HEP B VACCINE (1 of 3 - 19+ 3-dose series) [facility] Start: 1992 Hepatitis B Vaccines (1 of 3 - 19+ 3-dose series) Hepatitis B Vaccines (1 of 3 - 19+ 3-dose series) [facility] Start: 1992 Pneumococcal vaccination Pneumococcal Vaccine (1 of 2 - PCV) [facility] Start: 1992 Pneumococcal Vaccine: 50+ Years (1 of 2 - PCV) Pneumococcal Vaccine: 50+ Years (1 of 2 - PCV) [facility] Start: 1991 COVID-19 Vaccine (#1) COVID-19 Vaccine (#1) [facility] Start: 1991 Hepatitis C antibody, confirmatory test Hepatitis C Screening [facility] Start: 1991 Hepatitis C screening Hepatitis C Screening [facility] Start: 1989 COVID-19 Vaccine (1 of 2) COVID-19 Vaccine (1 of 2) [facility] Start: 1988 HIV screening [facility] Start: 1985 COVID-19 Vaccine (1) COVID-19 Vaccine (1) [facility] Start: 1985 Depression Monitoring Depression Monitoring [facility] Start: 1985 Depression Screening Depression Screening [facility] Start: 1985 Depresssion Monitoring Depresssion Monitoring [facility] Start: 1983 Microalbumin measurement, urine, quantitative Urine Microalbumin [facility] Start: 1983 Urine screening for protein Urine Microalbumin [facility] Start: 1983 Urine, microalbumin URINE MICROALBUMIN [facility] Work Phone: Start: 1979 Pneumococcal Vaccine: Ped or At-Risk (1 - PCV) Pneumococcal Vaccine: Ped or At-Risk (1 - PCV) [facility] Start: 1979 Pneumococcal Vaccine: Ped or At-Risk (1 of 4 - PCV13) Pneumococcal Vaccine: Ped or At-Risk (1 of 4 - PCV13) [facility] Start: 1979 Pneumococcal Vaccine: Pediatrics (0 to 5 Years) and At-Risk Patients (6 to 64 Years) (1 - PCV) Pneumococcal Vaccine: Pediatrics (0 to 5 Years) and At-Risk Patients (6 to 64 Years) (1 - PCV) [facility] Start: 1979 Pneumococcal Vaccine: Pediatrics (0 to 5 Years) and At-Risk Patients (6 to 64 Years) (1 of 2 - PCV) Pneumococcal Vaccine: Pediatrics (0 to 5 Years) and At-Risk Patients (6 to 64 Years) (1 of 2 - PCV) [facility] Start: 1976 History and physical examination, annual for health maintenance Wellness Visit [facility] Start: 1974 Hepatitis A Vaccines (1 of 2 - Risk 2-dose series) Hepatitis A Vaccines (1 of 2 - Risk 2-dose series) [facility] Start: 1974 MMR Vaccines (1 of 1 - Standard series) MMR Vaccines (1 of 1 - Standard series) [facility] Start: 03-12-1974 COVID-19 Vaccine (#1) COVID-19 Vaccine (#1) [facility] Start: 1973 Creatinine measurement Creatinine Level [facility] Start: 1973 Echocardiography Echocardiogram [facility] Start: 1973 Hepatitis B Vaccines (1 of 3 - 3-dose series) Hepatitis B Vaccines (1 of 3 - 3-dose series) [facility] Start: 1973 Hepatitis C screening HEPATITIS C VIRUS SCREENING [employer] [facility] Start: 1973 HIV screening HIV Screening [facility] Start: 1973 Potassium measurement Potassium Level [facility] Start: 1973 Protein mass conc Mammogram [facility] Start: 1973 Screening for malignant neoplasm of cervix PAP SMEAR [facility] Work Phone: Start: 1973 Screening for malignant neoplasm of colon [facility] Start: 1973 Screening mammography Mammogram [facility] Start: 1973 Tetanus vaccination TETANUS EVERY 10 YR [facility] Work Phone: Start: 1973 Yearly Adult Physical Yearly Adult Physical [facility] 12 lead ECG ECG 12 Lead Rout ine Chest pain at rest Ordered: 11/22/2018 [facility] Comment on above: Ordered: 11/22/2018 12 lead ECG ECG 12 Lead ECG Routine 12/31/2023 9:34 PM EDT [facility] Work Phone: End: 06-16-2019 Bacteria identified Aer cx Nom (Unsp spec) Urine Aerobic Culture Routine History of UTI 1 Occurrences starting 06/16/2018 until 06/16/2019 [facility] Comment on above: 1 Occurrences starting 06/16/2018 until 06/16/2019 End: 08-13-2023 Bacteria identified in Urine by Culture [facility] Work Phone: Comment on above: Once (Lab) for 1 Occurrences starting until 08/13/2023 End: 04-27-2024 DBT Breast - bilateral [facility] Service Area Work Phone: Comment on above: Once for 1 Occurrences starting 04/27/20 24 until 04/27/2024 End: 08-13-2023 ECG 12 lead ECG 12 lead ECG STAT Once fo r 1 Occurrences starting 08/13/2023 until 08/13/2023 [facility] Area Work Phone: Comment on above: Once for 1 Occurrences starting 08/13/20 23 until 08/13/2023 End: 01-21-2020 Echocardiography Echocardiogram complete Rout ine Chest pain at rest 1 Occurrences starting 11/22/2018 until 01/21/2020 [facility] Comment on above: 1 Occurrences starting 11/22/2018 until 01/21/2020 GERD (gastroesophageal reflux disease) GERD (gastroesophageal reflux disease) [facility] H/O: blood transfusion History of blood transfusion [facility] History of reduction of breast History of bilateral breast reduction surgery [facility] End: 10-05-2023 Holter monitor study [facility] Service Area Work Phone: Comment on above: Once for 1 Occurrences starting 10/05/20 23 until 10/05/2023 Hypertension Hypertension [facility] Insertion intrauterine device iud Insertion Device Uterus Pelvic pain Irregular bleeding Preop testing [facility] Work Phone: Laps abd prtm&omentu m dx w/wo spec br/wa spx Exploration Laparoscopy Pelvic pain Irregular bleeding Preop testing [facility] Work Phone: End: 03-14-2025 Levetiracetam level (BKR [facility]) [facility] Work Phone: Comment on above: Once (Lab) for 1 Occurrences starting until 03/14/2025 End: 11-22-2019 Lipid 1996 panel Lipid panel Routine Chest pa in at rest 1 Occurrences starting 11/22/2018 until 11/22/2019 [facility] Comment on above: 1 Occurrences starting 11/22/2018 until 11/22/2019 Patient Education [facility] Work Phone: Patient referral [facility] Work Phone: End: 03-14-2025 Primidone and Metabolite [facility] Comment on above: Once (Lab) for 1 Occurrences starting until 03/14/2025 Procedure on tissue specimen [facility] Work Phone: Comment on above: Release Upon Ordering for 1 Occurrences starting 06/05/2024, 1 completed End: 11-22-2019 Radionuclide myocardial perfusion study NM Myocardial Perfusion Multiple SPECT Routine Chest pain at rest 1 Occurrences starting 11/22/2018 until 11/22/2019 [facility] Comment on above: 1 Occurrences starting 11/22/2018 until 11/22/2019 End: 03-14-2025 Valproic acid level, total and free [facility] Comment on above: Once (Lab) for 1 Occurrences starting until 03/14/2025 End: 09-01-2023 XR Chest 2 Views [facility] Service Area Work Phone: Comment on above: Once for 1 Occurrences starting 09/01/20 until 09/01/2023 NEGATED: Highlighted row has been ruled out! Planned Goals not documented [facility] Work Phone: Immunizations Immunization Date Immunization Notes Care Provider Fa cili 09-16-2023 tetanus toxoid, reduced diphtheria toxoid, and acellular pertussis vaccine, adsorbed Dimas Lin MD Work Phone: [facility] Work Phone: 03-05-2020 tetanus toxoid, reduced diphtheria toxoid, and acellular pertussis vaccine, adsorbed Jeanie M Tavallaee Work Phone: [facility] Work Phone: 06-19-2019 tetanus toxoid, reduced diphtheria toxoid, and acellular pertussis vaccine, adsorbed Jeanie M Tavallaee Work Phone: [facility] Work Phone: 11-22-2018 influenza virus vaccine, unspecified formulation Raúl Hudson MD Work Phone: [facility] Payers Date Payer Category Payer Self-pay 03-18-2021 Medicaid [id number] 06-18-2019 Medicaid [id number] 08-18-2015 Unknown [employer] xxxxxxxxxxxx 2015-Present [id number] [id number] 08-18-2015 Unknown 10-18-2014 Unknown [id number] 2.16.840.1.422042.3.249.13 1973 Unknown [id number] 2.16.840.1.216783.3.579.2.902 1973 Unknown [id number] 2.16.840.1.544251.3.579.2.902 1973 Unknown [id number] 2.16.840.1.355681.3.579.2.106 9 1973 Unknown [id number] 2.16.840.1.132283.3.579.2.106 9 1973 Unknown [id number] 2.16.840.1.092496.3.579.2.106 9 1973 Unknown [id number] 2.16.840.1.925669.3.579.2.106 9 1973 Unknown [id number] 2.16.840.1.982592.3.579.2.106 9 1973 Unknown [id number] 2.16.840.1.317406.3.579.2.106 9 1973 Unknown [id number] 2.16.840.1.215848.3.579.2.106 9 1973 Unknown [id number] 2.16840.1.287441.3.579.2.106 9 1973 Unknown [id number] 2.16.840.1.039101.3.579.2.106 9 1973 Unknown [id number] 2.16.840.1.184192.3.579.2.106 9 1973 Unknown [id number] 2.16.840.1.402686.3.579.2.106 9 1973 Unknown [id number] 2.16840.1.539661.3.579.2.106 9 1973 Unknown [id number] 2.16.840.1.310745.3.579.2.106 9 1973 Unknown [id number] 2.16.840.1.854900.3.579.2.106 9 1973 Unknown [id number] 2.16.840.1.503716.3.579.2.106 9 1973 Unknown [id number] 2.16.840.1.507861.3.579.2.106 9 1973 Unknown [id number] 2.16.840.1.437418.3.579.2.106 9 1973 Unknown [id number] 2.16.840.1.104827.3.579.2.106 9 1973 Unknown [id number] 2.16.840.1.116741.3.579.2.106 9 1973 Unknown [id number] 2.16.840.1.517419.3.579.2.106 9 1973 Unknown [id number] 2.16.840.1.732987.3.579.2.106 9 1973 Unknown [id number] 2.16.840.1.910887.3.579.2.106 9 1973 Unknown [id number] 2.16.840.1.013707.3.579.2.106 9 1973 Unknown [id number] 2.16840.1.337933.3.579.2.106 9 1973 Unknown [id number] 2.16.840.1.116051.3.579.2.106 9 1973 Unknown [id number] 2.16.840.1.584582.3.579.2.106 9 1973 Unknown [id number] 2.16.840.1.113891.3.579.2.106 9 1973 Unknown [id number] 2.16840.1.809754.3.579.2.106 9 1973 Unknown [id number] 2.16.840.1.223641.3.579.2.106 9 1973 Unknown [id number] 2.16.840.1.265428.3.579.2.106 9 1973 Unknown [id number] 2.16.840.1.338811.3.579.2.106 9 1973 Unknown [id number] 2.16.840.1.342800.3.579.2.106 9 1973 Unknown [id number] 2.16.840.1.478122.3.579.2.106 9 1973 Unknown [id number] 2.16.840.1.229747.3.579.2.106 9 1973 Unknown [id number] 2.16.840.1.954443.3.579.2.106 9 1973 Unknown [id number] 2.16.840.1.311503.3.579.2.106 9 1973 Unknown [id number] 2.16.840.1.418808.3.579.2.106 9 1973 Unknown [id number] 2.16.840.1.921282.3.579.2.106 9 1973 Unknown [id number] 2.16840.1.930565.3.579.2.106 9 1973 Unknown [id number] 2.840.1.520917.3.579.2.106 9 1973 Unknown [id number] 2.16.840.1.640422.3.579.2.106 9 1973 Unknown [id number] 2.16840.1.405068.3.579.2.106 9 1973 Unknown [id number] 2.16840.1.053835.3.579.2.106 9 1973 Unknown [id number] 2.840.1.860702.3.579.2.106 9 1973 Unknown [id number] 2.16.840.1.227666.3.579.2.106 9 1973 Unknown [id number] 2.16.840.1.642900.3.579.2.106 9 1973 Unknown [id number] 2.16840.1.999705.3.579.2.106 9 1973 Unknown [id number] 2.16.840.1.516910.3.579.2.106 9 1973 Unknown [id number] 2.16.840.1.958389.3.579.2.106 9 1973 Unknown [id number] 2.840.1.800221.3.579.2.106 9 1973 Unknown [id number] 2.840.1.505354.3.579.2.106 9 1973 Unknown [id number] 2.840.1.861730.3.579.2.106 9 1973 Unknown [id number] 2.840.1.755742.3.579.2.356 1973 Unknown [id number] 840.1.144824.3.579.2.356 1973 Unknown [id number] .840.1.134810.3.579.2.356 1973 Unknown [id number] 12.03.830.1.473933.3.579.2.356 1973 Unknown [id number] 840.1.555379.3.579.2.356 1973 Unknown [id number] 840.1.867924.3.579.2.356 1973 Unknown [id number] 840.1.976556.3.579.2.356 1973 Unknown [id number] 840.1.484600.3.579.2.356 1973 Unknown [id number] 840.1.110069.3.579.2.356 1973 Unknown [id number] 840.1.563005.3.579.2.356 1973 Unknown [id number] 840.1.979173.3.579.2.356 1973 Unknown [id number] 840.1.385477.3.579.2.356 1973 Unknown [id number] 2.16.840.1.653305.3.579.2.356 1973 Unknown [id number] 2.16.840.1.847776.3.579.2.356 1973 Unknown [id number] 2.16.840.1.640054.3.579.2.356 1973 Unknown [id number] 2.16.840.1.540597.3.579.2.124 5 1973 Unknown [id number] 2.16.840.1.130279.3.579.2.124 5 1973 Unknown [id number] 2.16.840.1.552700.3.579.2.124 5 1973 Unknown [id number] 2.16.840.1.006968.3.579.2.903 1973 Unknown [id number] 2.16.840.1.100578.3.579.2.903 1973 Unknown [id number] 2.16.840.1.217736.3.579.2.903 1973 Unknown [id number] 2.16.840.1.990720.3.579.2.903 1973 Unknown [id number] 2.16.840.1.695734.3.579.2.903 1973 Unknown [id number] 2.16.840.1.673929.3.579.2.903 1973 Unknown [id number] 2.16.840.1.011519.3.579.2.903 1973 Unknown [id number] 2.16.840.1.294904.3.579.2.903 1973 Unknown [id number] 2.16.840.1.145401.3.579.2.124 3 1973 Unknown [id number] 2.16.840.1.129279.3.579.2.124 3 1973 Unknown [id number] 2.16.840.1.582722.3.579.2.124 3 1973 Unknown [id number] 2.16.840.1.405670.3.579.2.124 3 1973 Unknown [id number] 2.16.840.1.702501.3.579.2.124 3 1973 Unknown [id number] 2.16.840.1.277139.3.579.2.124 3 1973 Unknown [id number] 2.16.840.1.025467.3.579.2.124 3 1973 Unknown [id number] 2.16.840.1.690737.3.579.2.124 3 1973 Unknown [id number] 2.16.840.1.557342.3.579.2.124 3 1973 Unknown [id number] 2.16.840.1.665044.3.579.2.124 3 1973 Unknown [id number] 2.16.840.1.435542.3.579.2.124 3 1973 Unknown [id number] 2.16.840.1.274282.3.579.2.124 3 1973 Unknown [id number] 2.16.840.1.554568.3.579.2.124 3 1973 Unknown [id number] 2.16.840.1.097905.3.579.2.124 3 1973 Unknown [id number] 2.16.840.1.212704.3.579.2.124 3 1973 Unknown [id number] 2.16.840.1.203770.3.579.2.124 3 1973 Unknown [id number] 2.16.840.1.022894.3.579.2.124 3 1973 Unknown [id number] 2.16.840.1.209198.3.579.2.124 3 1973 Unknown [id number] 2.16.840.1.808967.3.579.2.983 1973 Unknown [id number] 2.16.840.1.832461.3.579.2.983 1973 Unknown [id number] 2..840.1.374008.3.579.2.983 1973 Unknown [id number] 2.840.1.365978.3.579.2.983 1973 Unknown [id number] 2.840.1.081319.3.579.2.124 4 1973 Unknown [id number] 2.840.1.258487.3.579.2.124 4 Unknown 623 Unknown [id number] 2.840.1.547513.3.579.2.462 Unknown [id number] 2.840.1.864158.3.579.2.462 Unknown [id number] 2.840.1.960454.3.579.2.462 Unknown [id number] 2.840.1.703925.3.579.2.462 Unknown [id number] 2.840.1.269608.3.579.2.462 Unknown [id number] 2.840.1.478451.3.579.2.462 Unknown [id number] 2.840.1.481069.3.579.2.462 Unknown [id number] 2.840.1.208959.3.579.2.462 Unknown [id number] 2.840.1.034605.3.579.2.462 Unknown [id number] 2.840.1.839372.3.579.2.462 Unknown [id number] 2.840.1.275832.3.579.2.462 Unknown [id number] 2.840.1.619817.3.579.2.462 Social History Date Type Detail Facility Start: 01-04-2018 End: 04-23-2025 Tobacco smoking status NHIS Never smoker [facility] Start: 1975 Sex Assigned At Not on file [employer] Work Phone: Start: 12-01-2020 End: 08-19-2023 Tobacco use and exposure Never used [facility] Start: 12-01-2020 End: 06-16-2024 Alcohol intake Current non-drinker of alcohol (finding) [facility] Start: 09-11-2022 End: 04-27-2024 Exposure to SARS-CoV-2 (event) Not sure [facility] Start: 01-12-2023 End: 02-19-2025 No alcohol use No alcohol use [address] Work Phone: Tobacco smoking consumption unknown [facility] Start: 09-21-2022 End: 09-21-2023 Tobacco smoking status NHIS Ex-smoker [facility] History of tobacco use Current smoker [facility] History of tobacco use Cigarette Smoker [facility] Start: 02-25-2023 End: 07-18-2024 Alcohol intake Lifetime non-drinker (finding) [facility] Work Phone: Start: 01-12-2023 End: 02-19-2025 Tobacco use panel [facility] Work Phone: Adult Depression Screening Assessment 15 [facility] Start: 06-23-2018 Gender identity Identifies as female gender (finding) [facility] Start: 06-23-2018 Sexual orientation Heterosexual (fin ding) [facility] Has the electric, gas, oil, or water company threatened to shut off services in your home in past 12Mo No [facility] How hard is it for you to pay for the very basics like food, housing, medical care, and heating Not very hard [facility] (I/We) worried whether (my/our) food would run out before (I/we) got money to buy more. Never true [facility] Start: 05-18-2022 Sex Female (finding) [facility] Start: 01-02-2023 End: 01-12-2023 Exposure to SARS-CoV-2 (event) Unable to assess [facility] Start: 03-30-2020 Alcohol [facility] Start: 1975 Sex Assigned At Female [facility] NEGATED: Highlighted row - - [facility] Work Phone: Medical Equipment Procedure Code Equipment Code Equipment Origin al Text Equipment Identifier Dates [facility] [id number] Start: 10-14-2023 Goals Date Patient Goal Desired Activity /State Personal health goal Comment on above: Formatting of this n ote might be different from the original. Reema is working toward taking medications as directed. 03/27/[address] [facility] Formatting of this n ote might be different from the original. Coping and Emotions: Manage stress Adapt to lifestyle changes Get support from family / friends 03/27/[address] [facility] Formatting of this n ote might be different from the original. High blood pressure makes your heart work too hard. It can cause heart attack, stroke and kidney disease. 03/27/[address] [facility] Comment on above: Reema is working t oward taking medications as directed. Reema is working t oward taking medications as directed. 03/27/[address] [facility] Formatting of this n ote might be different from the original. Reema is working toward taking medications as directed. 03/27/[address] [facility] Comment on above: Coping and Emotions: Manage stress Adapt to lifestyle changes Get support from family / friends Coping and Emotions: Manage stress Adapt to lifestyle changes Get support from family / friends 03/27/[address] [facility] Formatting of this n ote might be different from the original. Coping and Emotions: Manage stress Adapt to lifestyle changes Get support from family / friends 03/27/[address] [facility] Comment on above: High blood pressure makes your heart work too hard. It can cause heart attack, stroke and kidney disease. High blood pressure makes your heart work too hard. It can cause heart attack, stroke and kidney disease. 03/27/[address] [facility] Formatting of this n ote might be different from the original. High blood pressure makes your heart work too hard. It can cause heart attack, stroke and kidney disease. 03/27/19 currently rehab at [facility] Functional Status Date Assessment Result Facility 12-08-2024 Patient Health Questionnaire 2 item (PHQ-2) [Reported] [facility] 11-17-2023 Hood - suicide severity rating scale screener - recent [C-SSRS] [facility] Work Phone: 11-08-2023 Patient Health Questionnaire 2 item (PHQ-2) [Reported] [facility] Work Phone: 01-07-2022 PHQ-9 [id number] Sever e (20-27) [facility] Work Phone: NEGATED: Highlighted row Functional performance Functional status health issues are not documented Disease [facility] [employer] Work Phone: Mental Status Date Assessment Result Facility 03-21-2025 Cognitive function Voice/Name [facility] Work Phone: NEGATED: Highlighted row Cognitive function [Interpretation] Cognitive status health issues are not documented Disease [address] Work Phone: Clinical Notes 11-20-2009 to 04-23-2025 Note Date & Type Note Facility 04-23-2025 Discharge summary Note Date/Time April 23, 2025 3:49a [facility] Medical Records Department [address] [place] [id number] Emergency Department Summary 04/23/25 MR#: [id number] Acct: [id number] Name: REEMA SHAH Rep #:[id number] 17 : 1975 49 From: Fran Naylor DO PCP: Dr. Sree Jamison MD Status:REG E R Location: ED HPI History of Present Illness Chief Complaint: Mental Health Informant: patient, EMS and SNF Narrative Narrative: Patient is a 49-year-old female with past medical history of hypertension borderline personality disorder hypothyroidism. She stays at a halfway. She states that the weekend staff will not get her up and she is on a list thatthis is supposed to be done daily. She reports that she cannot get up on her own and is extremely upset that they are not following her directives. She states that because of this increased stress she does not want to be at the facility and this is making her want to harm herself. She states that she attempted to harm herself years ago when she lives by herself. She states she does not have a plan at this time. Please note that halfway staff reports that the patient has been very upsetand argumentative and combative. The halfway staff reports that she only began saying that she was going to hurt herself because she wanted to leave the facility. [facility] Medical History Borderline personality disorder Long-term use of high-risk medication Systolic heart failure Major depressive disorder Tremor History of FL (myocardial infarction) History of TIA (transient ischemic [...] buspirone 10 mg tablet 10 mg PO QHS 06/05/21 Unknow n History levothyroxine 25 mcg capsule 25 mcg PO DAILY 06/05/21 Unknown History loratadine 10 mg capsule 10 mg PO Q24H 06/05/21 Unkno wn History melatonin 5 mg capsule 10 mg [...] amlodipine 5 mg tablet 5 mg PO QHS 11/04/24 Unknown History allopurinol 100 mg tablet 100 mg PO DAILY 03/21/25 Unk nown History bisacodyl 10 mg rectal suppository 10 mg [place] DAILY PRN constipation 03/21/25 Unkn own History cholecalciferol (vitamin D3) 50 2,000 unit PO DAILY Unknown History mcg (2,000 unit) capsule clonidine HCl 0.1 mg tablet 0.1 mg PO Q12H 03/21/25 Un known History divalproex 250 mg tablet,extended 250 mg PO BID Unknown History release 24 hr magnesium hydroxide 400 mg/5 mL 30 ml PO DAILY PRN con stipation 03/21/25 Unknown History oral suspension sennosides 8.6 mg tablet (senna) 8.6 mg PO DAILY 03/21 Unknown History desvenlafaxine succinate 100 mg 100 mg PO DAILY Unknown History tablet,extended release 24 hr (Pristiq) Allergy/AdvReac Type Severity Reaction Status Date / Time phenytoin Allergy Mild Other Verified 04/23/25 01:51 gabapentin (From Neurontin) Allergy Unknown Unknown Verified 04/23/25 01:51 hydrocodone Allergy Unknown Unknown Verified 04/23/25 01:51 acetaminophen (From Vicodin) Allergy Rash Verified 04/23/25 01:51 erythromycin base Allergy Rash Verified 04/23/25 01:51 (Erythromycin Base) hydrocodone bitartrate (From Allergy Rash Verified 04/23/25 01:51 Vicodin) hydromorphone (From Dilaudid) Allergy Rash Verified 04/23/25 01:51 Penicillins Allergy Rash Verified 04/23/25 01:51 promethazine HCl (From Allergy Vomiting Verified 04/23/25 01:51 Phenergan) tramadol Allergy Rash Verified 04/23/25 01:51 codeine AdvReac Vomiting Verified 04/23/25 01:51 morphine AdvReac Vomiting Verified 04/23/25 01:51 ondansetron HCl (From Zofran) AdvReac Vomiting Verified 04/23/25 01:51 Social History housing: halfway Smoking Status: Never smoker Electronic Cigarette Use: not used second hand exposure: No alcohol intake: never substance use type: does not use ROS ROS ED Constitutional Constitutional ED: Denies chills or fever(s) Eyes Eyes: Denies change in vision ENT ENT ED: Denies sore throat Cardiovascular Cardiovascular: Denies chest pain Respiratory/Chest Respiratory/Chest: Denies cough or dyspnea Gastrointestinal Gastrointestinal: Denies abdominal pain, diarrhea, nausea or vomiting Genitourinary Genitourinary ED: Denies dysuria Musculoskeletal Musculoskeletal: Denies myalgias Integumentary Denies rash Neurologic Neurologic: Denies headache(s) Psychiatric Psychiatric: Reports depression and suicidal thoughts EXAM Physical Exam Const Vital Signs: 04/23/25 01:51 Temperature 98 F Temperature Source Temporal Pulse Rate 68 Respiratory Rate 18 Blood Pressure 174/99 H Blood Pressure Mean 124 Pulse Ox 98 Oxygen Delivery Method Room Air Positive well nourished, well developed and obese General Appearance ED: well developed; Negative for pallor Nutritional Appearance: obese HEENT HEENT Narrative: Normocephalic atraumatic Eyes PERRL and EOMs intact bilaterally General Eye ED: Negative for scleral icterus Neck supple Neck Narrative: No nuchal rigidity or meningeal signs Resp normal respiratory effort and clear to auscultation bilaterally Cardio regular rate and regular rhythm GI normal to inspection, nondistended, normoactive bowel sounds, non-tender, non-distended and no masses Auscultation: normoactive bowel sounds Palpation: soft Extremity normal to inspection Neuro oriented x3 and CN's II-XII intact bilaterally Sensorium / Orientation: alert Psych Psych Narrative: Patient has a depressed affect Skin no rashes or lesions noted General Skin Exam: Negative for jaundice or pallor MDM MDM MDM Narrative Medical decision making narrative: Patient arrived to ER hypertensive but has a past medical history of this and otherwise vitals are stable. She reports she is extremely upset at the halfway staff for not getting her up. The staff states that she has been argumentative and combative and then began complaining of wanting to hurt herselfas a means of getting out of the facility. The patient does not have access to her medications nor is she able to ambulate without assistance and therefore is extremely low risk for being able to harm herself. She does not have a plan andher reasons for coming to the hospital appear motivated by secondary gain. Therefore I feel no need for imaging or laboratory studies but patient can be evaluated by psychiatry/crisis center. After they evaluated the patient they agree that her motivation is behavioral as she does not want to be at the halfway center as she does not get along with the weekend staff. The fact that she does not have access to her medications and cannot ambulate without help significantly lowers her risk for attempting to self-harm. Therefore thereis no need for inpatient treatment but she can be followed up as an outpatient. History & Record Review Discussion w/independent historian: EMS personnel, Patient and Other (custodial staff) Management Discussion w/another healthcare provider: Behavioral health Discharge Plan Triage Chief Complaint: Mental Health ED Provider: Fran Naylor Dx/Rx/DC Orders Clinical Impression: Mood disorder, HTN (hypertension), Hyperlipidemia Instructions: Understanding Mood Disorders Prescriptions: No Action atorvastatin 20 mg tablet 20 mg PO QHS buspirone 10 mg tablet 10 mg PO QHS levothyroxine 25 mcg capsule 25 mcg PO DAILY loratadine 10 mg capsule 10 mg PO Q24H melatonin 5 mg capsule 10 mg PO [...] DAILY bisacodyl 10 mg suppository 10 mg WI DAILY PRN (Reason: constipation) clonidine HCl 0.1 mg tablet 0.1 mg PO Q12H magnesium hydroxide 400 mg/5 mL suspension 30 ml PO DAILY PRN (Reason: constipation) sennosides [senna] 8.6 mg tablet 8.6 mg PO DAILY cholecalciferol (vitamin D3) 50 mcg (2,000 unit) capsule 2,000 unit PO DAILY divalproex 250 mg tablet extended release 24 hr 250 mg PO BID desvenlafaxine succinate [Pristiq] 100 mg tablet extended release 24 hr 100 mg PO DAILY famotidine 20 mg tablet 20 mg PO [...] amlodipine 5 mg tablet 5 mg PO QHS Primary Care Provider: Sree Jamison Referrals: Sree Jamison MD [Primary Care Provider] - Activity Restrictions/Additional Instructions: You will need to follow-up with psychiatry to discuss further potential treatment options. However at this time there is not a need for inpatient treatment. Please continue all of your home medications as directed by your doctor Print Language: Moldovan Disposition Disposition: Home, Self Care What to do if you have Problems For any increased pain, shortness of breath, bleeding, nausea or vomiting, chestpain, or any unexpected problems, contact your Primary Care Provider. Call [facility] ([phone]) or report to the closest Emergency Room. Call 911 if necessary. 04/23/25 0349 <Electronically signed by Fran Naylor DO> Cosigner Signature (if applicable): CC: Dr. Sree Jamison MD ~ Signed [facility] Work Phone: 1(203) 844-201507-07-2025 Discharge summary [facility] Medical Records Department [address] [place] [address] Emergency Department Summary 04/23/25 MR#: [id number] Acct: [id number] Name: REEMA SHAH Rep #:[id number] : 1975 49 From: Fran Naylor DO PCP: Dr. Sree Jamison MD Status:REG E R Location: ED HPI History of Present Illness Chief Complaint: Mental Health Informant: patient, EMS and SNF Narrative Narrative: Patient is a 49-year-old female with past medical history of hypertension borderline personality disorder hypothyroidism. She stays at a halfway. She states that the weekend staff will not get her up and she is on a list thatthis is supposed to be done daily. She reports that she cannot get up on her own and is extremely upset that they are not following her directives. She states that because of this increased stress she does not want to be at the facility and this is making her want toharm herself. She states that she attempted to harm herself years ago when she lives by herself. She states she does not have a plan at this time. Please note that halfway staff reports that the patient has been very upsetand argumentative and combative. The halfway staff reports that she only began saying that she was going to hurt herself because she wanted to leave the facility. [facility] Medical History Borderline personality disorder Long-term use of high-risk medication Systolic heart failure Major depressive disorder Tremor History of FL (myocardial infarction) History of TIA (transient ischemic [...] buspirone 10 mg tablet 10 mg PO QHS 06/05/21 Unknow n History levothyroxine 25 mcg capsule 25 mcg PO DAILY 06/05/21 Unknown History loratadine 10 mg capsule 10 mg PO Q24H 06/05/21 Unkno wn History melatonin 5 mg capsule 10 mg [...] amlodipine 5 mg tablet 5 mg PO QHS 11/04/24 Unknown History allopurinol 100 mg tablet 100 mg PO DAILY 03/21/25 Unk nown History bisacodyl 10 mg rectal suppository 10 mg WI DAILY PRN constipation 03/21/25 Unkn own History cholecalciferol (vitamin D3) 50 2,000 unit PO DAILY Unknown History mcg (2,000 unit) capsule clonidine HCl 0.1 mg tablet 0.1 mg PO Q12H 03/21/25 Un known History divalproex 250 mg tablet,extended 250 mg PO BID Unknown History release 24 hr magnesium hydroxide 400 mg/5 mL 30 ml PO DAILY PRN con stipation 03/21/25 Unknown History oral suspension sennosides 8.6 mg tablet (senna) 8.6 mg PO DAILY 03/21 Unknown History desvenlafaxine succinate 100 mg 100 mg PO DAILY Unknown History tablet,extended release 24 hr (Pristiq) Allergy/AdvReac Type Severity Reaction Status Date / Time phenytoin Allergy Mild Other Verified 04/23/25 01:51 gabapentin (From Neurontin) Allergy Unknown Unknown Verified 04/23/25 01:51 hydrocodone Allergy Unknown Unknown Verified 04/23/25 01:51 acetaminophen (From Vicodin) Allergy Rash Verified 04/23/25 01:51 erythromycin base Allergy Rash Verified 04/23/25 01:51 (Erythromycin Base) hydrocodone bitartrate (From Allergy Rash Verified 04/23/25 01:51 Vicodin) hydromorphone (From Dilaudid) Allergy Rash Verified 04/23/25 01:51 Penicillins Allergy Rash Verified 04/23/25 01:51 promethazine HCl (From Allergy Vomiting Verified 04/23/25 01:51 Phenergan) tramadol Allergy Rash Verified 04/23/25 01:51 codeine AdvReac Vomiting Verified 04/23/25 01:51 morphine AdvReac Vomiting Verified 04/23/25 01:51 ondansetron HCl (From Zofran) AdvReac Vomiting Verified 04/23/25 01:51 Social History housing: halfway Smoking Status: Never smoker Electronic Cigarette Use: not used second hand exposure: No alcohol intake: never substance use type: does not use ROS ROS ED Constitutional Constitutional ED: Denies chills or fever(s) Eyes Eyes: Denies change in vision ENT ENT ED: Denies sore throat Cardiovascular Cardiovascular: Denies chest pain Respiratory/Chest Respiratory/Chest: Denies cough or dyspnea Gastrointestinal Gastrointestinal: Denies abdominal pain, diarrhea, nausea or vomiting Genitourinary Genitourinary ED: Denies dysuria Musculoskeletal Musculoskeletal: Denies myalgias Integumentary Denies rash Neurologic Neurologic: Denies headache(s) Psychiatric Psychiatric: Reports depression and suicidal thoughts EXAM Physical Exam Const Vital Signs: 04/23/25 01:51 Temperature 98 F Temperature Source Temporal Pulse Rate 68 Respiratory Rate 18 Blood Pressure 174/99 H Blood Pressure Mean 124 Pulse Ox 98 Oxygen Delivery Method Room Air Positive well nourished, well developed and obese General Appearance ED: well developed; Negative for pallor Nutritional Appearance: obese HEENT HEENT Narrative: Normocephalic atraumatic Eyes PERRL and EOMs intact bilaterally General Eye ED: Negative for scleral icterus Neck supple Neck Narrative: No nuchal rigidity or meningeal signs Resp normal respiratory effort and clear to auscultation bilaterally Cardio regular rate and regular rhythm GI normal to inspection, nondistended, normoactive bowel sounds, non-tender, non- distended and no masses Auscultation: normoactive bowel sounds Palpation: soft Extremity normal to inspection Neuro oriented x3 and CN's II-XII intact bilaterally Sensorium / Orientation: alert Psych Psych Narrative: Patient has a depressed affect Skin no rashes or lesions noted General Skin Exam: Negative for jaundice or pallor MDM MDM MDM Narrative Medical decision making narrative: Patient arrived to ER hypertensive but has a past medical history of this and otherwise vitals are stable. She reports she is extremely upset at the halfway staff for not getting her up. The staff states that she has been argumentative and combative and then began complaining of wanting to hurt herselfas a means of getting out of the facility. The patient does not have access to her medications nor is she able to ambulate without assistance and therefore is extremely low risk for being able to harm herself. She does not have a plan andher reasons for coming to the hospital appear motivated by secondary gain. Therefore I feel no need for imaging or laboratory studies but patient can be evaluated by psychiatry/crisis center. After they evaluated the patient they agree that her motivation is behavioral as she does not want to be at the halfway center as she does not get along with the weekend staff. The fact that she does not have access to her medications and cannot ambulate wi out help significantly lowers her risk for attempting to self-harm. Therefore thereis no need forinpatient treatment but she can be followed up as an outpatient. History & Record Review Discussion w/independent historian: EMS personnel, Patient and Other (custodial staff) Management Discussion w/another healthcare provider: Behavioral health Discharge Plan Triage Chief Complaint: Mental Health ED Provider: Fran Naylor Dx/Rx/DC Orders Clinical Impression: Mood disorder, HTN (hypertension), Hyperlipidemia Instructions: Understanding Mood Disorders Prescriptions: No Action atorvastatin 20 mg tablet 20 mg PO QHS buspirone 10 mg tablet 10 mg PO QHS levothyroxine 25 mcg capsule 25 mcg PO DAILY loratadine 10 mg capsule 10 mg PO Q24H melatonin 5 mg capsule 10 mg PO [...] DAILY bisacodyl 10 mg suppository 10 mg WI DAILY PRN (Reason: constipation) clonidine HCl 0.1 mg tablet 0.1 mg PO Q12H magnesium hydroxide 400 mg/5 mL suspension 30 ml PO DAILY PRN (Reason: constipation) sennosides [senna] 8.6 mg tablet 8.6 mg PO DAILY cholecalciferol (vitamin D3) 50 mcg (2,000 unit) capsule 2,000 unit PO DAILY divalproex 250 mg tablet extended release 24 hr 250 mg PO BID desvenlafaxine succinate [Pristiq] 100 mg tablet extended release 24 hr 100 mg PO DAILY famotidine 20 mg tablet 20 mg PO [...] amlodipine 5 mg tablet 5 mg PO QHS Primary Care Provider: Sree Jamison Referrals: Sree Jamison MD [Primary Care Provider] - Activity Restrictions/Additional Instructions: You will need to follow-up with psychiatry to discuss further potential treatment options. However at this time there is not a need for inpatient treatment. Please continue all of your home medications as directed by your doctor Print Language: Moldovan Disposition Disposition: Home, Self Care What to do if you have Problems For any increased pain, shortness of breath, bleeding, nausea or vomiting, chestpain, or any unexpected problems, contact your Primary Care Provider. Call [facility] ([phone]) or report tothe closest Emergency Room. Call 911 if necessary. 04/23/25 0349 Cosigner Signature (if applicable): CC: Dr. Sree Jamison MD ~ Signed [facility]06-18-2025 Discharge summary Author Lawson Higgins [facility] Note Date/Time April 04, 2025 9:34 pm [facility] Medical Records Department [address] [place] [address] Emergency Department Summary 04/04/25 MR#: [id number] Acct: [id number] Name: REEMA SHAH Rep #:[id number] : [...] wish to return to nursing facility Location: [place] Current Severity: Mild Maximum Severity: Moderate Worsened by: Unknown Relieved by: Nothing Associated Symptoms Associated Symptoms: Patient with little eye contact. And has tremor. She states that she does Narrative Narrative: patient is a 49-year-old woman. Patient presents from halfway by ambulance for psychiatric eval. Reportedly patient [...] similar symptoms: Yes (Per the [place]in social secretary Lori who was asked tosee her to help determi) Recent Illness/Hospitalization: No PFSH PFS Medical History Borderline personality disorder Long-term use of high-risk medication Systolic heart failure Major depressive disorder Tremor History of FL (myocardial infarction) History of TIA (transient ischemic [...] bisacodyl 10 mg rectal suppository 10 mg WI DAILY PRN constipation 03/21/25 Unknown History cholecalciferol [...] Vomiting Verified 04/04/25 15:44 Social History housing: halfway Smoking Status: Never smoker Electronic Cigarette Use: [...] % (Auto) 65.7 Lymph % (Auto) 22.8 [place] % (Auto) 10.3 H Eos % (Auto) [...] NO ACUTE FRACTURE OR DISLOCATION. Reading Location: [place] [address] Management Discussion w/another healthcare provider: forest and conservation worker/Case management (Lori did see patient. She informed this is her third halfway and the year. [place] patient does not [...] DAILY bisacodyl 10 mg suppository 10 mg WI DAILY PRN (Reason: constipation) clonidine HCl 0.1 [...] pressure checked within a week. Print Language: Moldovan Disposition Disposition: Home, Self Care What to do if you have Problems For any increased pain, shortness of breath, bleeding, nausea or vomiting, chestpain, or any unexpected problems, contact your Primary Care Provider. Call [facility] ([phone]) or report to the closest Emergency Room. Call 911 if necessary. 04/04/252133 <Electronically signed by Lawson Higgins MD> Cosigner Signature (if applicable): CC: Dr. Sree Jamison MD ~ Signed [facility] Work Phone: 1(908) 501-543306-18-2025 Discharge summary [facility] Medical Records Department [address] [place] [address] Emergency Department Summary 04/04/25 MR#: [id number] Acct: [id number] Name: REEMA SHAH Rep #:[id number] : [...] is a 49-year-old woman. Patient presents from halfway by ambulance for psychiatric eval. Reportedly patient [...] similar symptoms: Yes (Per the [place]in social secretary Lori who was asked tosee her to help determi) Recent Illness/Hospitalization: No PFSH PFSH Medical History Borderline personality disorder Long-term use of high-risk medication Systolic heart failure Major depressive disorder Tremor History of FL (myocardial infarction) History of TIA (transient ischemic [...] bisacodyl 10 mg rectal suppository 10 mg WI DAILY PRN constipation 03/21/25 Unknown History cholecalciferol [...] Vomiting Verified 04/04/25 15:44 Social History housing: halfway Smoking Status: Never smoker Electronic Cigarette Use: [...] % (Auto) 65.7 Lymph % (Auto) 22.8 [place] % (Auto) 10.3 H Eos % (Auto) [...] NO ACUTE FRACTURE OR DISLOCATION. Reading Location: [id number] Management Discussion w/another healthcare provider: forest and conservation worker/Case management (Lori did see patient. She informed this is her third halfway and the year. [place] patient does not [...] DAILY bisacodyl 10 mg suppository 10 mg WI DAILY PRN (Reason: constipation) clonidine HCl 0.1 [...] pressure checked within a week. Print Language: Moldovan Disposition Disposition: Home, Self Care What to do if you have Problems For any increased pain, shortness of breath, bleeding, nausea or vomiting, chestpain, or any unexpected problems, contact your Primary Care Provider. Call [facility] ([phone]) or report tothe closest Emergency Room. Call 911 if necessary. 04/04/252133 Cosigner Signature (if applicable): CC: Dr. Sree Jamison MD ~ Signed [facility]06-18-2025 Radiology Diagnostic study note [facility] Services [address] [place] [address] Foot min 3 Views MR#: [id number] Acct: [id number] Name: REEMA SHAH Rep #: [id number] : 1975 F 49 From: Lupillo Morgan MD PCP: Dr. Sree Jamison MD Status: REG E R Study:Foot min 3 Views Date of Exam: Exam# [id number] Ordering Dr: Kalpana Higgins MD PROCEDURE: FOOT MIN 3 VIEWS 04/04/2025 REASON FOR EXAM: INJURY/PAIN TECHNIQUE: FOOT MIN 3 VIEWS COMPARISON: 11/04/2024. FINDINGS: No evidence acute fracture or dislocation. Mild degenerative changes of the foot. The soft tissues are unremarkable. RAD/Foot min 3 Views IMPRESSION: NO ACUTE FRACTURE OR DISLOCATION. Reading Location: [place] [address] CC: Dr. Sree Jamison MD; Dr. Lawson Higgins MD ~ Mail Processing Clerk: Signed [facility]06-04-2025 Discharge summary Author Ian Ro [facility] Note Date/Time March 21, 2025 4:12p m [facility] Medical Records Department [address] [facility] [place] [address] Emergency Department Summary 03/21/25 MR#: [id number] Acct: [id number] Name: REEMA SHAH Rep #:[id number] : 1975 49 From: Ian Starr MD PCP: Dr. Sree Jamison MD Status:REG E R Location: ED HPI History of Present Illness Chief Complaint: Seizure Informant: patient Narrative Narrative: 49-year-old female from a halfway currently has seizure activity this morning. The [...] and that has beenthe case yesterday. PFSH PFSH Medical History Borderline personality disorder Long-term use of high-risk medication Systolic heart failure Major depressive disorder Tremor History of FL (myocardial infarction) History of TIA (transient ischemic [...] tablet 500 mg PO BID #60 tabs 10/ 27/22 Unknown Rx (Keppra) calcium 600 mg (as [...] bisacodyl 10 mg rectal suppository 10 mg WI DAILY PRN constipation 03/21/25 Unknown History cholecalciferol [...] her neurologic baseline with staff at the halfway. She does havebaseline tremors, although they may [...] has been given Tylenol at home the halfway for it. I give her an IV [...] % (Auto) 66.0 Lymph % (Auto) 23.2 [place] % (Auto) 9.0 Eos % (Auto) 0.6 [...] Clarity Clear Urine pH 6.0 Ur Specific [place] 1.015 Urine Protein 30 H Urine Glucose [...] DAILY bisacodyl 10 mg suppository 10 mg WI DAILY PRN (Reason: constipation) clonidine HCl 0.1 [...] office for recommended dosage increase. Print Language: Moldovan Disposition Disposition: Home, Self Care What to do if you have Problems For any increased pain, shortness of breath, bleeding, nausea or vomiting, chestpain, or any unexpected problems, contact your Primary Care Provider. Call [facility] ([phone]) or report to the closest Emergency Room. Call 911 if necessary. 03/21/25 1612 <Electronically signed by Ian Starr MD> Cosigner Signature (if applicable): CC: Dr. Sree Jamison MD ~ Signed [facility] Work Phone: 1(899) 179-656206-04-2025 Discharge summary [facility] Medical Records Department [address] [place] [address] Emergency Department Summary 03/21/25 MR#: [id number] Acct: [id number] Name: REEMA SHAH Rep #:[id number] : 1975 49 From: Ian Starr MD PCP: Dr. Sree Jamison MD Status:REG E R Location: ED HPI History of Present Illness Chief Complaint: Seizure Informant: patient Narrative Narrative: 49-year-old female from a halfway currently has seizure activity this morning. The [...] on and that has beenthe case yesterday. [facility] Medical History Borderline personality disorder Long-term use of high-risk medication Systolic heart failure Major depressive disorder Tremor History of FL (myocardial infarction) History of TIA (transient ischemic [...] bisacodyl 10 mg rectal suppository 10 mg WI DAILY PRN constipation 03/21/25 Unknown History cholecalciferol [...] her neurologic baseline with staff at the halfway. She does havebaseline tremors, although they may [...] has been given Tylenol at home the halfway for it. I give her an IV [...] % (Auto) 66.0 Lymph % (Auto) 23.2 [place] % (Auto) 9.0 Eos % (Auto) 0.6 [...] Clarity Clear Urine pH 6.0 Ur Specific [place] 1.015 Urine Protein 30 H Urine Glucose [...] DAILY bisacodyl 10 mg suppository 10 mg WI DAILY PRN (Reason: constipation) clonidine HCl 0.1 [...] office for recommended dosage increase. Print Language: Moldovan Disposition Disposition: Home, Self Care What to do if you have Problems For any increased pain, shortness of breath, bleeding, nausea or vomiting, chestpain, or any unexpected problems, contact your Primary Care Provider. Call [facility] ([phone]) or report tothe closest Emergency Room. Call 911 if necessary. 03/21/25 1616 Cosigner Signature (if applicable): CC: Dr. Sree Jamison MD ~ Signed [facility]05-29-2025 NotePHYSICAL THERAPY [facility] Initial Evaluation Name/MRN: Adore Shah ([id number]) Evaluation Date: 03/15/2025 Date of : 1975 Admission Date: 03/13/2025 11:18 AM Age: 49 y.o. Room/Bed: N3-346/N3-346 A Discharge Recommendation: Longterm Facility Equipment Needed: No Assessment IMPRESSION: Pt [...] Problem List Diagnosis Date Noted Seizure disorder ([facility]) ([facility]) 03/13/2025 Vaginal bleeding 10/25/2023 Presence of intrauterine contraceptive device 10/25/2023 Obesity with body mass index 30 or greater 10/25/2023 Hypocalcemia 10/25/2023 Closed head injury 10/25/2023 Pelvic pain 08/16/2023 Generalized hyperhidrosis 04/01/2023 Personal history of transient ischemic attack (TIA), and cerebral infarction without residual deficits 04/01/2023 Psychoactive substance dependence ([facility]) 02/25/2023 Unilateral primary osteoarthritis, left knee 01/19/2023 Tremor 01/11/2023 Seizure-like activity ([facility]) 01/11/2023 Tinea corporis 01/11/2023 Dermatophytosis 01/11/2023 Stage 3b chronic kidney disease ([facility]) 01/11/2023 Scalp hematoma 01/11/2023 Osteopenia 01/11/2023 Migraines 01/11/2023 Hypomagnesemia 01/11/2023 Hyperglycemia 01/11/2023 Hypercholesterolemia 01/11/2023 Fatty liver 01/11/2023 COVID-19 01/11/2023 Compression fracture of T5 vertebra ([facility]) 01/11/2023 Urinary tract infection 01/08/2023 Chronic systolic heart failure ([facility]) 01/08/2023 Spondylosis without myelopathy or radiculopathy, lumbar region 12/23/2022 Chronic low back pain 11/26/2022 Recurrent falls 08/24/2022 Generalized epilepsy ([facility]) ([facility]) 12/30/2021 Abnormal gait 12/30/2021 Weakness 12/01/2020 Thrombocytopenia ([facility]) 12/01/2020 Hypothyroidism 12/01/2020 Hypokalemia 12/01/2020 Fracture of [...] Yes Heart failure di (more content not included)...[facility]05-29-2025 History of Present illness Narrative* Fannie Tay, PT - 03/15/2025 2:09 PM EDT Images from the original note were not included. PHYSICAL THERAPY [facility] Initial Evaluation Name/MRN: Adore Shah ([id number]) Evaluation Date: 03/15/2025 Date of : 1975 Admission Date: 03/13/2025 11:18 AM Age: 49 y.o. Room/Bed: N[facility]/N[facility] A Discharge Recommendation: Longterm Facility Equipment Needed: No Assessment IMPRESSION: Pt [...] Problem List Diagnosis Date Noted Seizure disorder ([facility]) ([facility]) 03/13/2025 Vaginal bleeding 10/25/2023 Presence of intrauterine contraceptive device 10/25/2023 Obesity with body mass index 30 or greater 10/25/2023 Hypocalcemia 10/25/2023 Closed head injury 10/25/2023 Pelvic pain 08/16/2023 Generalized hyperhidrosis 04/01/2023 Personal history of transient ischemic attack (TIA), and cerebral infarction without residual deficits 04/01/2023 Psychoactive substance dependence ([facility]) 02/25/2023 Unilateral primary osteoarthritis, left knee 01/19/2023 Tremor 01/11/2023 Seizure-like activity (HCC) 01/11/2023 Tinea corporis 01/11/2023 Dermatophytosis 01/11/2023 Stage 3b chronic kidney disease ([facility]) 01/11/2023 Scalp hematoma 01/11/2023 Osteopenia 01/11/2023 Migraines 01/11/2023 Hypomagnesemia 01/11/2023 Hyperglycemia 01/11/2023 Hypercholesterolemia 01/11/2023 Fatty liver 01/11/2023 COVID-19 01/11/2023 Compression fracture of T5 vertebra ([facility]) 01/11/2023 Urinary tract infection 01/08/2023 Chronic systolic heart failure ([facility]) 01/08/2023 Spondylosis without myelopathy or radiculopathy, lumbar region 12/23/2022 Chronic low back pain 11/26/2022 Recurrent falls 08/24/2022 Generalized epilepsy (CMS/HCC) ([facility]) 12/30/2021 Abnormal gait 12/30/2021 Weakness 12/01/2020 Thrombocytopenia ([facility]) 12/01/2020 Hypothyroidism 12/01/2020 Hypokalemia 12/01/2020 Fracture of [...] Raw Score (No Stairs) : 12 JH-HLM -HLM Score: Static standing (1 or more minutes) [...] 1315 Time Out 1345 Minutes 30 Fannie Cross PT Patient's Physical Therapy Plan of Care supervision is transferred to a [facility] Physical Therapist. Goals and/or treatment [...] be monitored and followed by the diet occupational therapy technician. * Fannie Cross PT - 03/14/2025 1:16 PM EDT Images from the original note were not included. PHYSICAL THERAPY [facility] Name/MRN: Adore Shah ([id number]) Date: 03/14/2025 Pt states she has left foot pain and they are going to do an xray to see if she broke her left foot. She is currently on a continuous EEG. PT held at this time. Fannie Cross PT * Say Perez NP - 03/14/2025 11:58 AM EDT Images from the original note were not included. Department of Neurological Sciences Section of Epilepsy PROGRESS NOTE ID: Reema Shah is a 49 y.o. female with history of mood disorder, borderline personality disorder, psoriasis, and epilepsy since Jun 10, 1994 while at the [facility] when she experienced aconvulsion. She is [...] and lower extremities. Coordination: No dysmetria on rxvhvf-xdup-cbpvon or ebbh-anzg-hiht testing. Rapid alternating movements without dysdiadochokinesia. Gait: [...] in the EMU. Anticipated discharge: 24 hours. Say Perez NP I spent total time 50 [...] Luevano MD 5 mg at 03/14/25 09 atorvastatin (Lipitor) tablet 20 mg 20 mg [...] qPM Srinivasa Luevano MD 500 mg at 03/13/252234 famotidine (Pepcid) tablet 20 mg 20 mg [...] 5-40 mL 5-40 mL IntraVENous q12h Srinivasa Luevaon MD sodium chloride 0.9% (NS) flush 5-40 [...] Date - 1-2 days - Location - long-term - Pending the following - neurology recs Total time spent (which include face to face and non face to face encounters) : minutes Toxic drug monitoring/narrow therapeutic index drug monitoring : # Drug name : # Route administered : # Method of monitoring : Extended Emergency Contact Information Primary Emergency Contact: Ko Perea Relation: Father Whiteprinting Machine Operator needed? No Roc Banegas DO Division of Hospitalist Medicine [facility] [1] Past Medical History: Diagnosis [...] sodium chloride 0.9% [4] documented in this [facility]05-29-2025 Nurse Note* Curtis Oshea RN - 03/15/2025 12:56 PM EDT Report called and received by PPTV [id number] Nurse Note* Curtis Oshea RN - 03/15/2025 12:56 PM EDT Report called and received by PPTV documented in this [facility]05-29-2025 Plan of care note* Care Plan - [...] maintained or improved Outcome: Adequate for Discharge [id number] Miscellaneous Notes* Care Plan - Curtis Oshea [...] pickup time of 2:00PM by transport company [facility] at phone number . Location of facility drop off is [facility]. Facility notified via [facility]port, Ivelisse Duran notified on secure chat. * Care Coordination - Ivelisse Duran RN - 03/15/2025 12:20 PM EDT Cont's EEG completed. Care team messaged. DC order /Mar completed. MICHAEL completed. DRILLING ENGINEERING MANAGER tasked to send to transport for 2:00 PM today to return to [facility], [address] Calledfacility w pick and shovel man time. * Care Plan - Ruth Topete [...] Cont's EEG. Pt is a resident @ [facility]. Called pt's father, Ko, , for Hx, no answer message left. Called the [facility] [phone], spoke shannon Hedrick. Plan is for DC temitope when EEG completed. WE [place] need to arrange transport @[place] to follow. * Care Plan - Ruth [...] by Ruth Topete RN Outcome: Progressing * Care Plan - Ruth Topete RN [...] or improved Outcome: Progressing documented in this [facility]05-29-2025 Note* Care Coordination - Alvin Overton - 03/15/2025 12:27 PM EDT Transport requested in [employer]. Awaiting time confirmation. Confirmed pickup time of 2:00PM by transport company [employer] at phone number . Location of facility drop off is [facility]. Facility notified via CareIvelisse ozuna notified on secure chat. [id number] Note* Care Coordination - Alvin Overton - 03/15/2025 12:27 PM EDT Transport requested in [employer]. Awaiting time confirmation. Confirmed pickup time of 2:00PM by transport company [employer] at phone number . Location of facility drop off is [facility]. Facility notified via [facility]port, Ivelisse Duran notified on secure chat. [id number] Note* Care Coordination - Ivelisse Duran RN - 03/15/2025 12:20 PM EDT Cont's EEG completed. Care team messaged. DC order /Mar completed. MICHAEL completed. DRILLING ENGINEERING MANAGER tasked to send to transport for 2:00 PM today to return to [facility], [address] Calledfacility w pick and shovel man time. [facility] [id number] Note* Care Coordination - Ivelisse Duran RN - 03/15/2025 12:20 PM EDT Cont's EEG completed. Care team messaged. DC order /Mar completed. MICHAEL completed. DRILLING ENGINEERING MANAGER tasked to send to transport for 2:00 PM today to return to [facility], [address] Calledfacility w pick and shovel man time. [id number] Hospital Discharge instructions* Discharge Instr - MICHAEL* [...] Primary Emergency Contact: Ko Perea Relation: Father Whiteprinting Machine Operator needed? No Past Surgical History: Past Surgical [...] is only under the purview of a tennis camp instructor or plastic surgeon that could use laser to remove the hair she is already had developed. Last Assessment & Plan: Patient again asks which can be done about her hirsutism have reminded her that probably that is only under the purview of a tennis camp instructor or plastic surgeon that could use laser to remove the hair she is already had developed. GERD (gastroesophageal reflux disease) Overview Signed 10/25/2023 8:51 AM by Mejia Cullen MD Last Assessment & Plan: Patient continues on the pantoprazole 40 mg once a day. Have advised she do so. Might also want to consider following up with the general talent specialist. Hiatal hernia Overview Signed 10/25/2023 8:51 AM by Mejia Cullen MD Last Assessment & Plan: Seems to be stable Generalized hyperhidrosis Generalized epilepsy (CMS/HCC) (HCC) Fracture of nasal bones, initial encounter for closed fracture Fatty liver Fall Overview Signed 10/25/2023 8:51 AM by Mejia Cullen MD Comment on above: FALL Essential hypertension, benign Overview Signed 10/25/2023 8:51 AM by Mejia Cullen MD 2000- Last Assessment & Plan: Believe your blood pressure was elevated at the cigarette and filter chief inspector's office today because you had not taking your Cardura as the cigarette and filter chief inspector thought. Your blood pressure has decreased since [...] you are done with the cardiac testing. 2000- Last Assessment & Plan: Believe your blood pressure was elevated at the cigarette and filter chief inspector's office today because you had not taking your Cardura as the cigarette and filter chief inspector thought. Your blood pressure has decreased since [...] Total assistance Toileting Total assistance Feeding Independent Garment Turner Independent Med Delivery yes Wound Care Documentation [...] Date: 03/13/2025 Discharging to Facility/ Agency Name: [facility] Address: [address] [place] [address] [address] ([address]) Fax: Dialysis Facility (if applicable) Name: NA Address: Dialysis Schedule: Phone: Fax: Biblical Studies Professor/Clerical Grader signature: ICIAN SECTION Name: Reema Shah Prognosis: [...] mesial frontal epileptogenic source superimposed on a rpqx-ap-uhsyhrmr global encephalopathy nonspecific as to etiology. ASM [...] to a nursing facility directly from an [facility] or a unit of a [facility] that is not operated by or licensed by [facility] under section 5119.14 or 5160-3-15.1 5 The [...] change in H&P PHYSICIAN SIGNATURE: documented in this [facility]05-29-2025 NoteHospitalist Discharge Summary Reema Shah : [...] mesial frontal epileptogenic source superimposed on a hejd-ps-onppryct global encephalopathy nonspecific as to etiology. ASM [...] Disposition: Patient discharged in stable condition to [facility] Greater than 31 minutes spent discharging [...] Commonly known as: Tums cholecalciferol 50 MCG (1999 [place]) tablet Commonly known as: Vitamin D-3 cloNIDine 0.1 MG tablet Commonly known as: Catapres Cyanocobalamin ER 1000 MCG tablet controlled-release desvenlafax (more content not included)...[facility]05-29-2025 Note [facility]ORATORY [address] [place] [id number] CONTINUOUS LONG-TERM VIDEO EEG MONITORING REPORT Patient Name: Reema Shah : 1975 Date of Study: 03/15/2025 Duration Recorded: 12:01:00 EEG#: [id number] CARNIVAL WORKER: Eagle Wilkerson & Janet Curtis (student) PROVIDER REQUESTING STUDY: Dr. Hernandez REASON FOR EXAM: Evaluate for seizures DIAGNOSIS TAG: Transient Neurologic Symptoms (TNS) HISTORY: Reema Shah is a 49 y.o. female with history of significant for mood disorder, borderline personality disorder, psoriasis, and epilepsy since Jun 10, 1994 while at the [facility] when she experienced a convulsion. Previous provider ([facility]) followed her for kidney problems since [...] study with video was carried out at [facility]. Scalp electrodes were positioned in person by an lab technologist, following patient education, according to the 10-20 International system of electrode placement and maintained for integrity and quality of the recording. EEG data with video was recorded continuously and digitally stored. The lab technologist reviewed all automated detections and manual [...] mesial frontal epileptogenic source superimposed on a ajbi-ke-ruxuysgg global encephalopathy nonspecific as to etiology. Will [...] cholecalciferol (Vitamin D-3) tablet (more content not included)...[facility]05-29-2025 Procedure note* Sohail Hernandez MD PhD - 03/15/2025 9:16 AM EDT Images from the original note were not included. [facility] [address] [place] [address] CONTINUOUS LONG-TERM VIDEO EEG MONITORING REPORT Patient Name: Reema Shah : 1975 Date of Study: 03/15/2025 Duration Recorded: 12:01:00 EEG#: [id number] CARNIVAL WORKER: Eagle Wilkerson & Janet Curtis (student) PROVIDER REQUESTING STUDY: Dr. Hernandez REASON FOR EXAM: Evaluate for seizures DIAGNOSIS TAG: Transient Neurologic Symptoms (TNS) HISTORY: Reema Shah is a 49 y.o. female with history of significant for mood disorder, borderline personality disorder, psoriasis, and epilepsy since Jun 10, 1994 while at the [facility] when she experienced a convulsion. Previous provider ([facility]) followed her for kidney problems since [...] study with video was carried out at [facility]. Scalp electrodeswere positioned in person by an lab technologist, following patient education, according to the 10-20 International system of electrode placement and maintained for integrity and quality of the recording. EEG data with video was recorded continuously and digitally stored. The lab technologist reviewed all automated detections and manual [...] mesial frontal epileptogenic source superimposed on a mohd-np-kwdxxcnq global encephalopathy nonspecific as to etiology. Will [...] 40 mg 40 mg SubCUTAneous Daily Roc Makenzie, DO 40 mg at 03/15/25 0856 famotidine [...] 5-40 mL IntraVENous PRN Srinivasa Luevano MD [facility] [employer] Work Phone: [phone] 713-519505-29-2025 Procedure note* Sohail Hernandez MD PhD - 03/15/2025 9:16 AM EDT Images from the original note were not included. [facility] [address] [place] [address] CONTINUOUS LONG-TERM VIDEO EEG MONITORING REPORT Patient Name: Reema Shah : 1975 Date of Study: 03/15/2025 Duration Recorded: 12:01:00 EEG#: [id number] CARNIVAL WORKER: Eagle Wilkerson & Janet Curtis (student) PROVIDER REQUESTING STUDY: Dr. Hernandez REASON FOR EXAM: Evaluate for seizures DIAGNOSIS TAG: Transient Neurologic Symptoms (TNS) HISTORY: Reema Shah is a 49 y.o. female with history of significant for mood disorder, borderline personality disorder, psoriasis, and epilepsy since Jun 10, 1994 while at the [facility] when she experienced a convulsion. Previous provider ([facility]) followed her for kidney problems since [...] study with video was carried out at [facility]. Scalp electrodeswere positioned in person by an lab technologist, following patient education, according to the 10-20 International system of electrode placement and maintained for integrity and quality of the recording. EEG data with video was recorded continuously and digitally stored. The lab technologist reviewed all automated detections and manual [...] mesial frontal epileptogenic source superimposed on a lpkg-fp-owgugldz global encephalopathy nonspecific as to etiology. Will [...] original note were not included. [facility] [address] [place] [address] CONTINUOUS LONG-TERM VIDEO EEG MONITORING REPORT Patient Name: Reema Shah : 1975 Date of Study: 03/14/2025 Duration Recorded: 23:33:07 EEG#: [id number] CARNIVAL WORKER: Eagle Wilkerson & Janet Curtis (student) PROVIDER REQUESTING STUDY: Dr. Hernandez REASON FOR EXAM: Evaluate for seizures DIAGNOSIS TAG: Transient Neurologic Symptoms (TNS) HISTORY: Reema Shah is a 49 y.o. female with history of significant for mood disorder, borderline personality disorder, psoriasis, and epilepsy since Jun 10, 1994 while at the [facility] when she experienced a convulsion. Previous provider ([facility]) followed her for kidney problems since [...] study with video was carried out at [facility]. Scalp electrodeswere positioned in person by an lab technologist, following patient education, according to the 10-20 International system of electrode placement and maintained for integrity and quality of the recording. EEG data with video was recorded continuously and digitally stored. The lab technologist reviewed all automated detections and manual [...] Srinivasa Luevano MD 10 mg at 03/14/25 09 calcium carbonate-cholecalciferol (Oyster Shell) 250-3 MG-MCG per tablet 1 tablet 1 tablet Oral Daily Srinivasa Luevano MD 1 tablet at 03/14/25 0959 cetirizine (ZyrTEC) tablet 5 mg 5 mg Oral Daily Srinivasa Luevano MD 5 mg at 03/14/25 09 cholecalciferol (Vitamin D-3) tablet 2,000 Units 2,000 Units Oral Daily Srinivasa Luevano MD 2,000 Unitsat 03/14/25 09 cloNIDine (Catapres) tablet 0.1 mg 0.1 mg [...] 200 mg 200 mg Oral BID Srinivasa Luevaon MD 200 mg at 03/13/252106 sodium chloride 0.9 % infusion 5-250 mL/hr IntraVENous PRN Srinivasa Luevano MD sodium chloride 0.9% (NS) flush 5-40 mL 5-40 mL IntraVENous q12h Srinivasa Luevano MD sodium chloride 0.9% (NS) flush 5-40 mL 5-40 mL IntraVENous PRN Srinivasa Luevano MD * Sohail Hernandez MD PhD - 03/13/2025 1:57 PM EDT Images from the original note were not included. [facility] [address] [place] [phone] CONTINUOUS LONG-TERM VIDEO EEG MONITORING REPORT Patient Name: Reema Shah : 1975 Date of Study: 03/13/25 Duration Recorded: 12:01:35 EEG#: [id number] CARNIVAL WORKER: Eagle Wilkerson & Janet Curtis (student) PROVIDER REQUESTING STUDY: Dr. Hernandez REASON FOR EXAM: Evaluate for seizures DIAGNOSIS TAG: Transient Neurologic Symptoms (TNS) HISTORY: Reema Shah is a 49 y.o. female with history of significant for mood disorder, borderline personality disorder, psoriasis, and epilepsy since Jun 10, 1994 while at the [facility] when she experienced a convulsion. Previous provider ([facility]) followed her for kidney problems since [...] study with video was carried out at [facility]. Scalp electrodeswere positioned in person by an lab technologist, following patient education, according to the 10-20 International system of electrode placement and maintained for integrity and quality of the recording. EEG data with video was recorded continuously and digitally stored. The lab technologist reviewed all automated detections and manual [...] PRN Srinivasa Luevano MD documented in this [facility]05-28-2025 Plan of care note* Care Plan [...] integrity is maintained or improved Outcome: Progressing [facility] [id number] Plan of care note* Care Plan - [...] integrity is maintained or improved Outcome: Progressing [facility] [id number] Note* Care Coordination - Ivelisse Duran RN - 03/14/2025 2:20 PM EDT Pt has Hx of seizure disorder. Was a Direct adm for Cont's EEG. Pt is a resident @ [facility]. Called pt's father, Ko, , for Hx, no answer message left. Called the [facility] [phone], spoke shannon Hedrick. Plan is for DC temitope when EEG completed. WE will need to arrange transport @[place]. CM to follow. [facility] [id number] Note* Care Coordination - Ivelisse Duran RN - 03/14/2025 2:20 PM EDT Pt has Hx of seizure disorder. Was a Direct adm for Cont's EEG. Pt is a resident @ [facility]. Called pt's father, Ko, , for Hx, no answer message left. Called the [facility] [phone], spoke shannon Hedrick. Plan is for DC temitope when EEG completed. WE will need to arrange transport @[place]. CM to follow. [facility] [id number] [facility] Section of Epilepsy PROGRESS NOTE ID: Reema Shah is a 49 y.o. female with history of mood disorder, borderline personality disorder, psoriasis, and epilepsy since Jun 10, 1994 while at the [facility] when she experienced a convulsion. She [...] and lower extremities. Coordination: No dysmetria on diseep-rbdr-ynarfb or rnlw-ttdt-xcym testing. Rapid alternating movements without dysdiadochokinesia. Gait: [...] in the EMU. Anticipated discharge: 24 hours. Say Perez NP I spent total time 50 [...] cyanocobalamin (Vitamin B-12) tablet (more content not included)...[facility]05-28-2025 [facility] EEG [facility]ORATORY [address] [place], [place] [phone] CONTINUOUS LONG-TERM VIDEO EEG MONITORING REPORT Patient Name: Reema Shah : 1975 Date of Study: 03/14/2025 Duration Recorded: 23:33:07 EEG#: [id number] CARNIVAL WORKER: Eagle Wilkerson & Janet Curtis (student) PROVIDER REQUESTING STUDY: Dr. Hernandez REASON FOR EXAM: Evaluate for seizures DIAGNOSIS TAG: Transient Neurologic Symptoms (TNS) HISTORY: Reema Shah is a 49 y.o. female with history of significant for mood disorder, borderline personality disorder, psoriasis, and epilepsy since Jun 10, 1994 while at the [facility] when she experienced a convulsion. Previous provider ([facility]) followed her for kidney problems since [...] study with video was carried out at [facility]. Scalp electrodes were positioned in person by an lab technologist, following patient education, according to the 10-20 International system of electrode placement and maintained for integrity and quality of the recording. EEG data with video was recorded continuously and digitally stored. The lab technologist reviewed all automated detections and manual [...] (Vitamin B-12) tablet 1 (more content not included)...[facility]05-28-2025 Procedure note* Sohail Hernandez MD PhD - 03/14/2025 11:39 AM EDT Images from the original note were not included. [facility] [address] [place] [address] CONTINUOUS LONG-TERM VIDEO EEG MONITORING REPORT Patient Name: Reema Shah : 1975 Date of Study: 03/14/2025 Duration Recorded: 23:33:07 EEG#: [id number] CARNIVAL WORKER: Eagle Wilkerson & Janet Curtis (student) PROVIDER REQUESTING STUDY: Dr. Hernandez REASON FOR EXAM: Evaluate for seizures DIAGNOSIS TAG: Transient Neurologic Symptoms (TNS) HISTORY: Reema Shah is a 49 y.o. female with history of significant for mood disorder, borderline personality disorder, psoriasis, and epilepsy since Jun 10, 1994 while at the [facility] when she experienced a convulsion. Previous provider ([facility]) followed her for kidney problems since [...] study with video was carried out at [facility]. Scalp electrodeswere positioned in person by an lab technologist, following patient education, according to the 10-20 International system of electrode placement and maintained for integrity and quality of the recording. EEG data with video was recorded continuously and digitally stored. The lab technologist reviewed all automated detections and manual [...] tablet 2 mg 2 mg Oral BID Sriinvasa Luevano MD 2 mg at 03/14/25 0943 [...] 5-40 mL IntraVENous PRN Srinivasa Luevano MD [facility] [id number] NoteHospitalist Progress Note 03/14/2025 Subjective: Admit Date: [...] Date - 1-2 days - Location - long-term - Pending the following - neurology recs Total time spent (which include face to face and non face to face encounters) : minutes Toxic drug monitoring/narrow therapeutic index drug monitoring : # Drug name : # Route administered : # Method of monitoring : Extended Emerge (more content not included)...[facility] [id number] Plan of care note* Care Plan - [...] 03/13/20252217 by Ruth Topete RN Outcome: Progressing [facility] [id number] Plan of care note* Care Plan - [...] integrity is maintained or improved Outcome: Progressing [facility] [id number] [facility] [address] [place] [address] CONTINUOUS LONG-TERM VIDEO EEG MONITORING REPORT Patient Name: Reema Shah : 1975 Date of Study: 03/13/25 Duration Recorded: 12:01:35 EEG#: [id number] CARNIVAL WORKER: Eagle Wilkerson & Janet Curtis (student) PROVIDER REQUESTING STUDY: Dr. Hernandez REASON FOR EXAM: Evaluate for seizures DIAGNOSIS TAG: Transient Neurologic Symptoms (TNS) HISTORY: Reema Shah is a 49 y.o. female with history of significant for mood disorder, borderline personality disorder, psoriasis, and epilepsy since Jun 10, 1994 while at the [facility] when she experienced a convulsion. Previous provider ([facility]) followed her for kidney problems since [...] study with video was carried out at [facility]. Scalp electrodes were positioned in person by an lab technologist, following patient education, according to the 10-20 International system of electrode placement and maintained for integrity and quality of the recording. EEG data with video was recorded continuously and digitally stored. The lab technologist reviewed all automated detections and manual [...] ER) 24 hr t (more content not included)...[facility]05-27-2025 Procedure note* Sohail Hernandez MD PhD - 03/13/2025 1:57 PM EDT Images from the original note were not included. [facility] [address] [place] [id number] CONTINUOUS LONG-TERM VIDEO EEG MONITORING REPORT Patient Name: Reema Shah : 1975 Date of Study: 03/13/25 Duration Recorded: 12:01:35 EEG#: [id number] CARNIVAL WORKER: Eagle Wilkerson & Janet Curtis (student) PROVIDER REQUESTING STUDY: Dr. Hernandez REASON FOR EXAM: Evaluate for seizures DIAGNOSIS TAG: Transient Neurologic Symptoms (TNS) HISTORY: Reema Shah is a 49 y.o. female with history of significant for mood disorder, borderline personality disorder, psoriasis, and epilepsy since Jun 10, 1994 while at the [facility] when she experienced a convulsion. Previous provider ([facility]) followed her for kidney problems since [...] study with video was carried out at [facility]. Scalp electrodeswere positioned in person by an lab technologist, following patient education, according to the 10-20 International system of electrode placement and maintained for integrity and quality of the recording. EEG data with video was recorded continuously and digitally stored. The lab technologist reviewed all automated detections and manual [...] 20 mg 20 mg Oral Nightly Srinivasa Luveano MD bisacodyl (Dulcolax) suppository 10 mg 10 [...] 5-40 mL IntraVENous PRN Srinivasa Luevano MD [id number] History and physical note* Srinivasa Luevano MD [...] Resource Strain: Low Risk (06/05/2024) Received from [facility] Overall Financial Resource Strain (CARDIA) Difficulty of Paying Living Expenses: Not very hard Food Insecurity: No Food Insecurity (06/05/2024) Received from [facility] Hunger Vital Sign Worried About Running Out of Food in the Last Year: Never true Ran Out of Food in the Last Year: Never true Transportation Needs: No Transportation Needs (06/05/2024) Received from [facility] PRAPARE - Transportation Lack of Transportation (Medical): No Lack of Transportation (Non-Medical): No Physical Activity: Not on file Stress: Not on file Social Connections: Not on file Intimate Partner Violence: Not At Risk (06/05/2024) Received from [facility] Humiliation, Afraid, Rape, and Kick questionnaire Fear of Current or Ex-Partner: No Emotionally Abused: No Physically Abused: No Sexually Abused: No Housing Stability: Low Risk (06/05/2024) Received from [facility] Housing Stability Vital Sign Unable to Pay [...] - facility - Pending the following - franchise business consultant recs Total time spent (which include face to face and non face to face encounters) : 90 minutes. Extended Emergency Contact Information Primary Emergency Contact: Ko Perea Lincoln Relation: Father Whiteprinting Machine Operator needed? No ADVANCED CARE PLANNING Reema Shah : 1975 Primary Care Physician: Jeanie Ayala The patient and/or family/surrogate voluntarily agreed to participate in ACP services. Patient s cognitive capacity: AOx3 Code Status: [X] [FULL CODE - Continue all advanced life support: CPR,intubation,invasive procedures] [_] [DNR-CCA - DO NOT do CPR, intubation] [_] [DNR-BULL CHAIN OPERATOR - Comfort care only] [_] DNR form [was/was not] signed Total time spent: 0 minutes were spent discussing the patient's resuscitation status, advance care planning, and end of life care, with patient and/or family/surrogate. Srinivasa Luevano MD Division of Hospitalist Medicine [facility] [1] Past Medical History: Diagnosis Date Anxiety [...] Rash and Unknown Tramadol Rash and Unknown [id number] NoteAttending History and Physical Admit Date: 03/13/2025 PCP: Jeanie Ayala CHIEF COMPLAINT: seizure disorder Reason for Admission: cvEEG History Obtained From: patient HISTORY OF PRESENT ILLNESS: Reema J is a 49 y.o. female with past [...] Resource Strain: Low Risk (06/05/2024) Received from [facility] Overall Financial Resource Strain (CARDIA) Difficulty of Paying Living Expenses: Not very hard Food Insecurity: No Food Insecurity (06/05/2024) Received from [facility] Hunger Vital Sign Worried About Running Out of Food in the Last Year: Never true Ran Out of Food in the Last Year: Never true Transportation Needs: No Transportation Needs (06/05/2024) Received from [facility] PRAPARE - Transportation Lack of Transportation (Medical): No Lack of Transportation (Non-Medical): No Physical Activity: Not on file Stress: Not on file Social Connections: Not on file Intimate Partner Violence: Not At Risk (06/05/2024) Received from [facility] Humiliation, Afraid, Rape, and Kick questionnaire Fear of Current or Ex-Partner: No Emotionally Abused: No Physically Abused: No Sexually Abused: No Housing Stability: Low Risk (06/05/2024) Received from [facility] Housing Stability Vital Sign Unable to Pay [...] and 1x CAT3) Asses (more content not included)...[facility]05-27-2025 History and physical note* Srinivasa Luevano [...] Resource Strain: Low Risk (06/05/2024) Received from [facility] Overall Financial Resource Strain (CARDIA) Difficulty of Paying Living Expenses: Not very hard Food Insecurity: No Food Insecurity (06/05/2024) Received from [facility] Hunger Vital Sign Worried About Running Out of Food in the Last Year: Never true Ran Out of Food in the Last Year: Never true Transportation Needs: No Transportation Needs (06/05/2024) Received from [facility] PRAPARE - Transportation Lack of Transportation (Medical): No Lack of Transportation (Non-Medical): No Physical Activity: Not on file Stress: Not on file Social Connections: Not on file Intimate Partner Violence: Not At Risk (06/05/2024) Received from [facility] Humiliation, Afraid, Rape, and Kick questionnaire Fear of Current or Ex-Partner: No Emotionally Abused: No Physically Abused: No Sexually Abused: No Housing Stability: Low Risk (06/05/2024) Received from [facility] Housing Stability Vital Sign Unable to Pay [...] - facility - Pending the following - franchise business consultant recs Total time spent (which include face to face and non face to face encounters) : 90 minutes. Extended Emergency Contact Information Primary Emergency Contact: Ko Perea Lincoln Relation: Father Whiteprinting Machine Operator needed? No ADVANCED CARE PLANNING Reema Shah : 1975 Primary Care Physician: Jeanie Ayala The patient and/or family/surrogate voluntarily agreed to participate in ACP services. Patient s cognitive capacity: AOx3 Code Status: [X] [FULL CODE - Continue all advanced life support: CPR,intubation,invasive procedures] [_] [DNR-CCA - DO NOT do CPR, intubation] [_] [DNR-BULL CHAIN OPERATOR - Comfort care only] [_] DNR form [was/was not] signed Total time spent: 0 minutes were spent discussing the patient's resuscitation status, advance care planning, and end of life care, with patient and/or family/surrogate. Srinivasa Luevano MD Division of Hospitalist Medicine [facility] [1] Past Medical History: Diagnosis [...] Tramadol Rash and Unknown documented in this [facility]05-27-2025 Consult note* Geovanny Oliveira, SOLAR THERMAL TECHNICIAN - CASE COORDINATOR - 03/13/2025 11:20 AM EDT Images from the original note were not included. Department of Neurological Sciences Section of Epilepsy INITIAL CONSULT NOTE ID: Reema Shah is a 49 y.o. female with history of mood disorder, borderline personality disorder, psoriasis, and epilepsy since Jun 10, 1994 while at the [facility] when she experienced aconvulsion. She is [...] Sensory: Bilaterally intact to light touch. Coordination: Hulacu-yj-zbvo dysmetria bilaterally. Reflexes: Deferred. Gait: Unable to [...] 1. Will begin continuous video-EEG monitoring with [employer] q4h and telemetry monitoring in place. 2. [...] EMU. Anticipated length of stay: 48-hours. Geovanny LEEROY Rosario CNP I spent 70 minutes independently, physically [...] MD PhD at 03/14/2025 11:42 AM EDT [employer] Phone: 1(848) 433-617105-27-2025 Consult note* LEEROY Prado CNP - 03/13/2025 11:20 AM EDT Images from the original note were not included. Department of Neurological Sciences Section of Epilepsy INITIAL CONSULT NOTE ID: Reema Shah is a 49 y.o. female with history of mood disorder, borderline personality disorder, psoriasis, and epilepsy since Jun 10, 1994 while at the [facility] when she experienced aconvulsion. She is [...] Sensory: Bilaterally intact to light touch. Coordination: Uvvtie-wq-letg dysmetria bilaterally. Reflexes: Deferred. Gait: Unable to [...] 03/14/2025 11:42 AM EDT documented in this [facility]05-05-2025 History of Present illness Narrative* Say Perez NP - 02/19/2025 1:00 PM EDT Images from the original note were not included. Department of Neurological Sciences Section of Epilepsy [facility] [address] [facility] [address] Dept: [phone] Dept Loc: [phone] . Visit type: follow-up Reason for Visit: Follow-up and Seizures (No new seizures to report) Objective HPI The patient is a 49 y.o. who lives at [facility] with a PMH significant for mood disorder, borderline personality disorder, psoriasis, and epilepsy since Jun 10, 1994 while at the [facility] when she experienced a convulsion. Previous provider ([facility]) followed her for kidney problemssince age [...] Wrist flexion Wrist extension Finger extension Hand sales and distribution clerk Finger abduction RUE Absent 5 5 5 5 5 5 LUE Absent 5 5 5 5 5 5 Drift Hip flexion Knee extension Knee flexion Foot dorsiflexion Toe dorsiflexion Plantar flexion RLE 5 5 5 5 5 LLE 5 5 5 5 5 Fine Motor: no difficulty with finger-tapping Sensory: Bilaterally intact to light touch. Double simultaneous stimulation without extinction. Romberg absent. Coordination: Piaqxs-ft-mkeo without dysmetria bilaterally. Reflexes: Deferred Gait: on [...] since Jun 10, 1994 while at the [facility] when she experienced a convulsion. Previous provider ([facility]) followed her for kidney problems since age 25 now with improved renal function. She reports her last EEG was several years ago at [facility]. Her fall frequency has worsened recently. She [...] impairment of consciousness, intractable (HCC) - EEG CUSTODIAL MONITORING 2 - 3 DAY EVAL - [...] [facility]. Please call [phone] to schedule EEG. Follow up in about 2 months (around 04/21/2025). Education Say Perez NP Epilepsy Clinic Outpatient Progress Note & Billing by Time (2020 NAEC Guidelines): Time: (All time spent by provider-only, including documentation, for pre-/cmcr-lz-cigt/post- visit on the day of the visit ending at midnight on same day of visit). Encounter Code Level Time Spent (min) New Patient [id number] 15-29 46890 30-44 69753 45-59 88358 60-74 Established Patient [id number] 10-19 61827 20-29 24838 30-39 29341 40-54 Preparing for visit (review testing/procedures/notes) (min) Obtaining history (minutes) 15 Counseling, educating patient/family (minutes) 15 Ordering testing (minutes) Communicating with other providers (minutes) Charting (minutes) 15 Independently interpreting/documenting results (minutes) Communicating test results to patient/family (minutes) Total Time Today (min) = 45 documented in this encounterSFort Hamilton HospitalVqqtsg65-22-5395 Telephone encounter Note* Telephone Encounter - Latesha Krause MA - 01/26/2025 12:46 PM EDT Spoke with Tanesha and let her know providers message. [facility] [id number] Miscellaneous Notes* Telephone Encounter - Latesha Krause [...] Name of caller: Tanesha Contact phone number: [phone] Relationship to Patient: Maddie mendez [facility] Provider: Dr. Chopra Practice: [facility] [place] Chief Complaint/Reason for Call: Tanesha states that [...] return their call: Yes documented in this encounterSFort Hamilton HospitalDnqmqy09-45-5439 Telephone encounter Note* Telephone Encounter - Valentina Chopra MD - 01/26/2025 12:32 PM EDT Tell them ok, but I am not a fan of her getting that first dose before she is up for the day. [place] [id number] Telephone encounter Note* Telephone Encounter - Khalida Drake - 01/26/2025 10:17 AM EDT Name of caller: Tanesha Contact phone number: [phone] Relationship to Patient: Maddie mendez [facility] Provider: Dr. Chopra Practice: [facility] [place] Chief Complaint/Reason for Call: Tanesha states that [...] business hours to return their call: Yes [facility] [id number] History of Present illness Narrative* Valentina Chopra MD - 01/25/2025 2:20 PM EDT Images from the original note were not included. [facility] [address] [place] [address] [facility] [address] Dept: [phone] Dept Loc: [phone] Valentina Chopra MD CHIEF COMPLAINT: Chief Complaint [...] (tract) infections, Psoriasis, Repeated falls, and Thrombocytopenia (HCC). Past Surgical History: has a past surgical [...] Resource Strain: Low Risk (06/05/2024) Received from [facility] Overall Financial Resource Strain (CARDIA) Difficulty of Paying Living Expenses: Not very hard Food Insecurity: No Food Insecurity (06/05/2024) Received from [facility] Hunger Vital Sign Worried About Running Out of Food in the Last Year: Never true Ran Out of Food in the Last Year: Never true Transportation Needs: No Transportation Needs (06/05/2024) Received from [facility] PRAPARE - Transportation Lack of Transportation (Medical): No Lack of Transportation (Non-Medical): No Physical Activity: Not on file Stress: Not on file Social Connections: Not on file Intimate Partner Violence: Not At Risk (06/05/2024) Received from [facility] Humiliation, Afraid, Rape, and Kick questionnaire Fear of Current or Ex-Partner: No Emotionally Abused: No Physically Abused: No Sexually Abused: No Housing Stability: Low Risk (06/05/2024) Received from [facility] Housing Stability Vital Sign Unable to Pay [...] of the exam. Component 5 yr ago Whizzer Operator EXAMINATION: NM I-123 BRAIN SPECT DOPAMINE TRANSPORTER [...] EDT Aleksey Bhardwaj MD 03/16/2019 4:19 PM [facility] EEG Report Reason for EEG: [...] disc disease. Workstation ID: [id number] Exam End: 02/14/21 12:42 Specimen Collected: 12/01/20 13:09 CT HEAD WO CONTRAST; 07/10/2021 7:01 am INDICATION: head injury. COMPARISON: CT Brain, 15 May 2021 ACCESSION NUMBER(S): [id number] ORDERING CLINICIAN: LARRY EUGENE TECHNIQUE: CT of [...] (Age 19-64y); fall w[facility], [facility] Injury/Trauma or Illness?:Injury/Trauma How long have you had these symptoms (acute/chronic)?:Acute Reason for exam?:trauma Type of Exam?:Initial COMPARISON: CT brain from [place] of 12/01/2020. TECHNIQUE: Noncontrast CT of the [...] suspicious change from 12/01/2020 CT brain at [place]. Nini Garcia MD - 12/22/2022 Patient Name: REEMA SHAH STUDY: CT HEAD WO CONTRAST; 08/24/2022 7:43 am INDICATION: fall, history of thrombocytopenia, abrasion L parietal scalp . COMPARISON: 05/09/2022 ACCESSION NUMBER(S): [id number] ORDERING CLINICIAN: ANDRES HUSSEIN TECHNIQUE: Unenhanced CT [...] head injury . COMPARISON: 11/26/2022 ACCESSION NUMBER(S): [id number] ORDERING CLINICIAN: LARRY EUGENE TECHNIQUE: Noncontrast axial [...] head injury . COMPARISON: None. ACCESSION NUMBER(S): [id number] ORDERING CLINICIAN: LARRY EUGENE TECHNIQUE: Axial CT [...] unspecified COMPARISON: CT head 01/21/2023 ACCESSION NUMBER(S): [id number] ORDERING CLINICIAN: ACREN GILMAN TECHNIQUE: Noncontrast CT axial images were [...] and arranging for studies. documented in this [facility]02-21-2025 History of Present illness Narrative* Sohail Hernandez MD PhD - 12/08/2024 2:00 PM EST Images from the original note were not included. Department of Neurological Sciences Section of Epilepsy [facility] [address] [facility] [address] Dept: [phone] Dept Loc: [phone] . Visit type: follow-up Reason for Visit: Follow-up and Seizures (Had a seizures last night lasted 10 minutes ) Objective HPI The patient is a 49 y.o. who lives at [facility] with a PMH significant for mood disorder, borderline personality disorder, psoriasis, and epilepsy since Jun 10, 1994 while at the [facility] when she experienced a convulsion. Previous provider ([facility]) followed her for kidney problemssince age [...] Wrist flexion Wrist extension Finger extension Hand sales and distribution clerk Finger abduction RUE Absent 5 5 5 5 5 5 LUE Absent 5 5 5 5 5 5 Drift Hip flexion Knee extension Knee flexion Foot dorsiflexion Toe dorsiflexion Plantar flexion RLE 5 5 5 5 5 LLE 5 5 5 5 5 Fine Motor: no difficulty with finger-tapping Sensory: Bilaterally intact to light touch. Double simultaneous stimulation without extinction. Romberg absent. Coordination: Msktyf-rs-wukv without dysmetria bilaterally. Reflexes: Deferred Gait: on [...] since Jun 10, 1994 while at the [facility] when she experienced a convulsion. Previous provider ([facility]) followed her for kidney problems since age 25 now with improved renal function. She reports her last EEG was several years ago at [facility]. Her fall frequency has worsened recently. She [...] impairment of consciousness, intractable (HCC) - EEG MANAGER INSTRUMENTATION MONITORING 2 - 3 DAY EVAL Please do not call patient's father when scheduling admission, but rather Pam at [facility] [address] [facility] [place] [phone] Follow up in about 2 months (around 02/05/2025). Education Sohail Hernandez MD PhD Epilepsy Clinic Outpatient Progress Note & Billing by Time (2020 NAEC Guidelines): Time: (All time spent by provider-only, including documentation, for pre-/tuxr-ku-hbxr/post- visit on the day of the visit ending at midnight on same day of visit). Encounter Code Level Time Spent (min) New Patient [id number] 15-29 47566 30-44 26455 45-59 69249 60-74 Established Patient [id number] 10-19 23437 20-29 58960 30-39 01473 40-54 Preparing for visit (review testing/procedures/notes) (min) Obtaining history (minutes) 15 Counseling, educating patient/family (minutes) 15 Ordering testing (minutes) Communicating with other providers (minutes) Charting (minutes) 15 Independently interpreting/documenting results (minutes) Communicating test results to patient/family (minutes) Total Time Today (min) = 45 documented in this [facility]01-13-2025 Telephone encounter Note* Telephone Encounter - Ellen Tompkins - 10/30/2024 2:42 PM EST We have been unable to reach your patient to schedule their testing. Test Name: EEG Mcfp Monitoring 2-3 Day Eval 1st Attempt: 10/26 Called patient, no answer, mailbox full unable to leave message. 2nd Attempt: 10/27 Called patient, no answer, mailbox full, unable to leave message 3rd Attempt: 10/30 Called patient, no answer, left voicemail [facility] HospitalJosnwf34-56-6707 Miscellaneous Notes* Telephone Encounter - Ellen Tompkins - 10/30/2024 2:42 PM EST We have been unable to reach your patient to schedule their testing. Test Name: EEG Mcfp Monitoring 2-3 Day Eval 1st Attempt: 10/26 Called patient, no answer, mailbox full unable to leave message. 2nd Attempt: 10/27 Called patient, no answer, mailbox full, unable to leave message 3rd Attempt: 10/30 Called patient, no answer, left voicemail documented in this [facility]01-09-2025 History of Present illness Narrative* Sohail Hernandez MD PhD - 10/26/2024 11:30 AM EST Images from the original note were not included. Department of Neurological Sciences Section of Epilepsy [facility] [address] [facility] [address] Dept: [phone] Dept Loc: [phone] . Visit type: follow-up Reason for Visit: Follow-up and Seizures (No new seizures to report) Objective HPI The patient is a 49 y.o. who lives at [facility] with a PMH significant for mood disorder, borderline personality disorder, psoriasis, and epilepsy since Jun 10, 1994 while at the [facility] when she experienced a convulsion. Previous provider ([facility]) followed her for kidney problemssince age [...] Wrist flexion Wrist extension Finger extension Hand sales and distribution clerk Finger abduction RUE Absent 5 5 5 5 5 5 LUE Absent 5 5 5 5 5 5 Drift Hip flexion Knee extension Knee flexion Foot dorsiflexion Toe dorsiflexion Plantar flexion RLE 5 5 5 5 5 LLE 5 5 5 5 5 Fine Motor: no difficulty with finger-tapping Sensory: Bilaterally intact to light touch. Double simultaneous stimulation without extinction. Romberg absent. Coordination: Xnvsrj-qp-xksn without dysmetria bilaterally. Reflexes: Deferred Gait: on a chart Data Reviewed and Summarized Labs: reviewed Imaging/Testing: Assessment and Plan Epilepsy Classification: epilepsy NOS Etiology: structural Mood: euthymic Comorbidities: mood disorder The patient is a 49 right handed y.o. who returns for mood disorder, borderline personality disorder, psoriasis, and epilepsy since Jun 10, 1994 while at the [facility] when she experienced a convulsion. Previous provider ([facility]) followed her for kidney problems since age 25 now with improved renal function. She reports her last EEG was several years ago at [facility]. Her fall frequency has worsened recently. She [...] impairment of consciousness, intractable (HCC) - EEG CUSTODIAL MONITORING 2 - 3 DAY EVAL Will not change her ASM at this time. No follow-ups on file. Education Sohail Hernandez MD PhD Epilepsy Clinic Outpatient Progress Note & Billing by Time (2020 NA Guidelines): Time: (All time spent by provider-only, including documentation, for pre-/cqgf-vf-umck/post- visit on the day of the visit ending at midnight on same day of visit). Encounter Code Level Time Spent (min) New Patient [id number] 15-29 97651 30-44 19001 45-59 51870 60-74 Established Patient [id number] 10-19 44733 20-29 00524 30-39 93027 40-54 Preparing for visit (review testing/procedures/notes) (min) Obtaining history (minutes) 15 Counseling, educating patient/family (minutes) 15 Ordering testing (minutes) Communicating with other providers (minutes) Charting (minutes) 15 Independently interpreting/documenting results (minutes) Communicating test results to patient/family (minutes) Total Time Today (min) = 45 documented in this [facility]11-13-2024 History of Present illness Narrative* Gayatri Bobby PA-C - 08/30/2024 3:00 PM EST DATE OF SERVICE: 08/30/2024 PATIENT NAME: Reema Shah : 1975 AGE: 48 y.o. CLINIC NUMBER: [id number] Visit type: Established patient Chief Complaint Patient [...] on face, armpits, groin. 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 Patient [...] PA-C 08/30/24 3:36 PM documented in this [facility]10-01-2024 History of Present illness Narrative* Valentina Chopra MD - 07/18/2024 1:00 PM EDT [facility] [address] [facility] [address] [facility] [address] Dept: [phone] Dept Loc: [phone] Valentina Chopra MD CHIEF COMPLAINT: Chief Complaint [...] fallen. She reports that she was in [facility] in [place]. She reports that she ended up in [...] history of Anxiety, Chronic kidney disease, Epilepsy ([facility]), Essential hypertension, Gastro-esophageal reflux disease without esophagitis, Hypokalemia, Hypothyroidism, Obesity, Personal history of urinary (tract) infections, Psoriasis, Repeated falls, and Thrombocytopenia ([facility]). Past Surgical History: has a past surgical [...] Resource Strain: Low Risk (06/05/2024) Received from [facility] Overall Financial Resource Strain (CARDIA) Difficulty of Paying Living Expenses: Not very hard Food Insecurity: No Food Insecurity (06/05/2024) Received from [facility] Hunger Vital Sign Worried About Running Out of Food in the Last Year: Never true Ran Out of Food in the Last Year: Never true Transportation Needs: No Transportation Needs (06/05/2024) Received from [facility] PRAPARE - Transportation Lack of Transportation (Medical): No Lack of Transportation (Non-Medical): No Physical Activity: Not on file Stress: Not on file Social Connections: Not on file Intimate Partner Violence: Not At Risk (06/05/2024) Received from [facility] Humiliation, Afraid, Rape, and Kick questionnaire Fear of Current or Ex-Partner: No Emotionally Abused: No Physically Abused: No Sexually Abused: No Housing Stability: Low Risk (06/05/2024) Received from [facility] Housing Stability Vital Sign Unable to Pay [...] of the exam. Component 5 yr ago Whizzer Operator EXAMINATION: NM I-123 BRAIN SPECT DOPAMINE TRANSPORTER [...] EDT Aleksey Bhardwaj MD 03/16/2019 4:19 PM [facility] EEG Report Reason for EEG: [...] CT Brain, 15 May 2021 ACCESSION NUMBER(S): [id number] ORDERING CLINICIAN: LARRY EUGENE TECHNIQUE: CT of [...] Type of Exam?:Initial COMPARISON: CT brain from [place] of 12/01/2020. TECHNIQUE: Noncontrast CT of the [...] suspicious change from 12/01/2020 CT brain at [place]. Nini Garcia MD - 12/22/2022 Patient Name: REEMA SHAH STUDY: CT HEAD WO CONTRAST; 08/24/2022 7:43 am INDICATION: fall, history of thrombocytopenia, abrasion L parietal scalp . COMPARISON: 05/09/2022 ACCESSION NUMBER(S): [id number] ORDERING CLINICIAN: ANDRES HUSSEIN TECHNIQUE: Unenhanced CT [...] head injury . COMPARISON: 11/26/2022 ACCESSION NUMBER(S): [id number] ORDERING CLINICIAN: LARRY EUGENE TECHNIQUE: Noncontrast axial [...] head injury . COMPARISON: None. ACCESSION NUMBER(S): [id number] ORDERING CLINICIAN: LARRY EUGENE TECHNIQUE: Axial CT [...] Dai Bone DO - 07/16/2023 Interpreted By: HUMZADAI JAMISON DO Patient Name: REEMA SHAH STUDY: CT HEAD WO CONTRAST; 07/16/2023 12:05 am INDICATION: stable . TINEO d/t htn this evening Presented DX Code: R51.9 Headache, unspecified COMPARISON: CT head 01/21/2023 ACCESSION NUMBER(S): [id number] ORDERING CLINICIAN: CAREN GILMAN TECHNIQUE: Noncontrast CT [...] 25 mcg/mL <3 Low Levetiracetam Level Order: [id number] Component Ref Range & Units 7 mo [...] meds, I placed her on benzos. Obsviously terminal system operator I would prefer her not to be [...] and arranging for studies. documented in this encounterSFort Hamilton [id number] Telephone encounter Note* Telephone Encounter - Latesha Sparks - 07/11/2024 11:11 AM EDT We have been unable to reach your patient to schedule their testing. Test Name: eeg mcfp 1st Attempt: 07/07 2nd Attempt: 07/10 3rd attempt; 07/11 left message with tera from the nursing facility who states she will take and give to nursing staff. Vanda was notified this is for mainly documentation. [id number] Miscellaneous Notes* Telephone Encounter - Latesha Sparks - 07/11/2024 11:11 AM EDT We have been unable to reach your patient to schedule their testing. Test Name: eeg terminal system operator 1st Attempt: 07/07 2nd Attempt: 07/10 3rd attempt; 07/11 left message with tera from the nursing facility who states she will take and give to nursing staff. Vanda was notified this is for mainly documentation. documented in this [facility]09-20-2024 History of Present illness Narrative* Sohail Hernandez MD PhD - 07/07/2024 11:30 AM EDT Images from the original note were not included. Department of Neurological Sciences Section of Epilepsy [facility] [address] [facility] [address] Dept: [phone] Dept Loc: [phone] . Visit type: follow-up Reason for Visit: New Patient (New Patient referred to us by Dr. Chopra for seizures. Last seizure was in March of 2024 and went to [facility] ED in [place].) Per Dr Chopra (who had been following Sophia since 2007), it was medically necessary for [...] is a 48 y.o. who lives at [facility] with a PMH significant for mood disorder, borderline personality disorder, psoriasis, and epilepsy since Jun 10, 1994 while at the [facility] when she experienced a convulsion. Previous provider ([facility]) followed her for kidney problemssince age [...] Wrist flexion Wrist extension Finger extension Hand sales and distribution clerk Finger abduction RUE Absent 5 5 5 5 5 5 LUE Absent 5 5 5 5 5 5 Drift Hip flexion Knee extension Knee flexion Foot dorsiflexion Toe dorsiflexion Plantar flexion RLE 5 5 5 5 5 LLE 5 5 5 5 5 Fine Motor: no difficulty with finger-tapping Sensory: Bilaterally intact to light touch. Double simultaneous stimulation without extinction. Romberg absent. Coordination: Qhllag-nk-plam without dysmetria bilaterally. Able to perform rapid [...] since Jun 10, 1994 while at the [facility] when she experienced a convulsion. Previous provider ([facility]) followed her for kidney problems since [...] 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 (HCC) - [facility] - EEG MANAGER INSTRUMENTATION MONITORING 2 - 3 DAY EVAL Call Erin Phan to schedule study at [facility] 3n - [phone]. Follow up in about 3 months (around 10/06/2024). Education Sohail Hernandez MD PhD Epilepsy Clinic Outpatient Progress Note & Billing by Time (2020 NA Guidelines): Time: (All time spent by provider-only, including documentation, for pre-/zgjz-ai-hwxt/post- visit on the day of the visit ending at midnight on same day of visit). Encounter Code Level Time Spent (min) New Patient [id number] 15-29 28484 30-44 52034 45-59 25321 60-74 Established Patient [id number] 10-19 30765 20-29 39044 30-39 49141 40-54 Preparing for visit (review testing/procedures/notes) (min) Obtaining history (minutes) 30 Counseling, educating patient/family (minutes) 15 Ordering testing (minutes) Communicating with other providers (minutes) Charting (minutes) 30 Independently interpreting/documenting results (minutes) Communicating test results to patient/family (minutes) Total Time Today (min) = 75 documented in this [facility]08-30-2024 [facility] [place] PATIENT: Reema Shah DATE / TIME: 06/16/24 [...] Component Case Report Surgical Pathology Report Case: [id number] Authorizing Provider: Raúl Hudson MD Collected: 06/05/2024 04:36 PM Ordering Location: [facility] Periop Received: 06/06/2024 07:48 AM Pathologist: [...] can follow-up as needed AUTHENTICATED BY RAÚL HUDSON ON 06/16/2024 14:13:27[facility] 06-16-2024 History of Present illness Narrative* Raúl Hudson MD - 06/16/2024 2:06 PM EDT [facility] PATIENT: Reema Shah DATE / TIME: 06/16/24 [...] Component Case Report Surgical Pathology Report Case: [id number] Authorizing Provider: Raúl Hudson MD Collected: 06/05/2024 04:36 PM Ordering Location: [facility] Peri Received: 06/06/2024 07:48 AM Pathologist: Salma Ren [...] can follow-up as needed documented in this [id number] History of Present illness Narrative* Aviva Benedict - 06/06/2024 4:14 PM EDT Images from the original note were not included. Medical Transportation set up by [facility] per hospital request: Date:06/06/24Wednesday Time:5:30pm Destination: [place] [address] Company:[employer] [phone] Special needs/equipment:N/A Truck Type: Ambulance Companies called: [employer] * Chelo Saleh RN - 06/06/2024 3:55 PM EDT [employer] can no longer handle the ride for this patient due to their availability. The [facility]ens[facility] and we'll notify you as soon as a new transport company claimsthis trip. * Aviva Benedict - 06/06/2024 1:25 PM EDT Medical Transportation set up by [facility] per hospital request: Date:06/06/24Wednesday Time:5:30pm Destination: [place] [address] Company: [employer] ([phone]) Special needs/equipment:N/A Truck Type: Ambulance Companies called: [employer] * Chelo Saleh RN - 06/06/2024 1:04 [...] A : Post Acute Patient Choice 1: [facility] Discharging Transportation Plan: Discharge Plan Status: pend dc today Assessment and Background Information: Per LANGUAGE AND LITERATURE DIVISION CHAIR, plan is for pt to discharge back to [facility] today. Pt aware and provided SNF list so if she wants to switch SNF's she can work on it from [facility]. Pt voices no further questions/concerns/needs and requests transport be after dinner. Ambulance transport requested. CM to follow. Addendum 1520 Transport is set up for 1730 and form printed to floor. Treatment team updated. [place], CAITLYN, updated [facility]. * Raúl Hudson MD - 06/06/2024 9:49 [...] updated with follow-up and discharge instructions * Mary Kindracarol ann Marcus, CASE COORDINATOR - 06/06/2024 9:44 AM EDT [facility] DAILY PROGRESS NOTE SURGICAL PROBLEM Appendicitis ASSESSMENT & PLAN/ACTIVE MEDICAL PROBLEMS: Appendicitis POD 1 laparoscopic appendicitis Tolerating reg diet, no nausea or emesis Abdomen tender as to be expected, lap sites well approximated Afebrile - okay from surgery standpoint to dc, follow up in 1-[address] [...] note with the relevant labs, studies, and franchise business consultant notes. I have reviewed and agree with the documented history, exam, and plan of care. The below note includesmy discussion, exams, and review of relevant labs and imaging. See my note * Evangelist Ruth Bhupinder, CHAYA - 06/05/2024 2:19 PM EDT [facility] [place]GR[facility] [place] -- [facility] Patient Name: Reema Shah : 1975 MR #: [id number] Admit Date: 06/04/2024 Physicians: Jyoti Gupta MD (Family); No ref. provider found (Referring) Reema Shah is a 48 y.o. female patient of Jeanie Ayala MD with history of Thrombocytopenia, anxiety, CKD, CHF, depression, epilepsy, fatty liver, gastritis, MR, MELQUIADES, stroke, tremor presented to [facility] with abdominal pain. Acute appendicitis Admit [...] normal mood and affect documented in this [id number] NoteHMS DISCHARGE SUMMARY -- [facility] Reema Shah Admitted: 06/04/2024 Discharge Date: 06/06/24 PCP Handoff Recommended Outpatient Testing None Results Pending At Discharge none Clinical Summary Reema Shah is a 48 y.o. female patient of Jeanie Ayala MD with history of Thrombocytopenia, anxiety, CKD, CHF, depression, epilepsy, fatty liver, gastritis, MR, MELQUIADES, stroke, tremor presented to [facility] with abdominal pain. Diagnosed with acute appendicitis. Lap appendectomy on 06/05, tolerated well. Per trauma team patient is reluctant to return to [facility] and has complaints about mobility. enterprise manager discussed with patient that she has just been at [place] one day, and she will need to return and discuss options with their STEEL FABRICATING SUPERVISOR. During evaluation pt complained of kidney pain [...] Acute appendicitis S/p lab appendectomy Admit to [facility] surg floor Consult surgery team NPO Gentle [...] . Quantity: 6 mL naloxone 4 mg/actuation [place] Commonly known as: NARCAN Administer 1 spray [...] gums as needed . (more content not included)...[facility]08-20-2024 Hospital course Narrative* Ruth Blanca CNP - 06/06/2024 2:11 PM EDT [facility] DISCHARGE SUMMARY -- [facility] Reema Shah Admitted: 06/04/2024 Discharge Date: 06/06/24 PCP Handoff Recommended Outpatient Testing None Results Pending At Discharge none Clinical Summary Reema Shah is a 48 y.o. female patient of Jeanie Ayala MD with history of Thrombocytopenia, anxiety, CKD, CHF, depression, epilepsy, fatty liver, gastritis, MR, MELQUIADES, stroke, tremor presented to [facility] with abdominal pain. Diagnosed with acute appendicitis. Lap appendectomy on 06/05, tolerated well. Per trauma team patient is reluctant to return to [facility] and has complaints about mobility. enterprise manager discussed with [place] and she will need to return and discuss options with their STEEL FABRICATING SUPERVISOR. During evaluation pt complained of kidney pain [...] Acute appendicitis S/p lab appendectomy Admit to [facility] surg floor Consult surgery team NPO Gentle [...] . Quantity: 6 mL naloxone 4 mg/actuation [place] Commonly known as: NARCAN Administer 1 spray [...] instructed. Physician(s) Follow Up: Raúl Hudson MD [address] [place], [place] [id number] Schedule an appointment as soon as possible for a visit in 2 week(s) s/p appendectomy [place] [address] [place] [address] Condition at Discharge: Stable Disposition: SNF I reviewed discharge recommendations with the patient in person. Patient instructions, including activity, were given to the patient/family at discharge. On day of discharge I saw Reema Shah and spent: > 30 minutes on discharge. Completed by: Ruth Blanca CNP on 06/06/24, 2:11 PM documented in this [id number] NoteGeneral surgery progress note No acute events [...] instructions AUTHENTICATED BY RAÚL HUDSON, ON 06/06/2024 09:53:[address] [place] [address] 06-06-2024 Note Attestation signed by Raúl Hudson MD at 06/06/2024 9:54 AM I agree with the Advanced Practice Provider note with the same day of service. The patient was seen and examined by me, the attending surgeon, on rounds on the date of service listed above. I have reviewed the Advanced Practice Provider note with the relevant labs, studies, and franchise business consultant notes. I have reviewed and agree with the documented history, exam, and plan of care. The below note includes my discussion, exams, and review of relevant labs and imaging. See my note [facility] DAILY PROGRESS NOTE SURGICAL PROBLEM Appendicitis ASSESSMENT & PLAN/ACTIVE MEDICAL PROBLEMS: Appendicitis POD 1 laparoscopic appendicitis Tolerating reg diet, no nausea or emesis Abdomen tender as to be expected, lap sites well approximated Afebrile - okay from surgery standpoint to de, follow up in 1-[address] [...] primary *Code Status: full AUTHENTICATED BY KINDRA HIGGINBOTHAM ON 06/06/2024 09:49:41[facility] 06-06-2024 Hospital Discharge instructions* Discharge Instructions* Sondra Matson CNP - 06/06/2024 4:19 AM EDT LAPAROSCOPIC APPENDECTOMY [...] activity until follow up with the [facility] office. We suggest you: [...] will have a post-operative visit with a medical office representative of the surgery team. At that appointmentyou will receive instructions on returning to work. Call the Outpatient Trauma/ [facility] office [phone] for advice (Wednesday-Wednesday, 8am to 4pm) or [...] or have bowel movements documented in this [id number] Note* Plan of Care - Jojo Calderón [...] Absence of physical injury Outcome: Partially Met [id number] Miscellaneous Notes* Plan of Care - Jojo [...] OF SURGERY: 06.05.24 SURGEON: Raúl Hudson MD DAIRY PROCESSING SUPERVISOR(S): none PREOPERATIVE DIAGNOSIS: Acute appendicitis. POSTOPERATIVE DIAGNOSIS: [...] at the base of the mesoappendix. An Skyline-Ganipa 45 stapler with a blue cartridge was [...] Clinical impression: normal ECG documented in this [id number] Note* Plan of Care - Mal Olivares [...] Absence of physical injury Outcome: Not Met [id number] Note* Op Note - Raúl Hudson MD - 06/05/2024 4:19 PM EDT OPERATIVE REPORT DATE OF SURGERY: 06.05.24 SURGEON: Raúl Hudson MD DAIRY PROCESSING SUPERVISOR(S): none PREOPERATIVE DIAGNOSIS: Acute appendicitis. POSTOPERATIVE DIAGNOSIS: [...] at the base of the mesoappendix. An Skyline-Ganipa 45 stapler with a blue cartridge was [...] and taken to PACU in good condition. [id number] NoteS PROGRESS NOTE -- [facility] Patient Name: Reema Shah : 1975 MR #: [id number] Admit Date: 06/04/2024 Physicians: Jyoti Gupta MD (Family); No ref. provider found (Referring) Reema Shah is a 48 y.o. female patient of Jeanie Ayala MD with history of Thrombocytopenia, anxiety, CKD, CHF, depression, epilepsy, fatty liver, gastritis, MR, MELQUIADES, stroke, tremor presented to [facility] with abdominal pain. Acute appendicitis Admit [...] normal mood and affect AUTHENTICATED BY RUTH BLANCA, ON 06/05/2024 14:21:[address] [place] [address] 06-05-2024 Note* Plan of Care - Litzy [...] Absence of physical injury Outcome: Partially Met [id number] Consult note* Destiny Ayers RN - 06/05/2024 11:44 AM EDT Associated Order(s): IP CONSULT TO CARE MANAGEMENT Care Management Consult Note Date: 06/05/2024 Time: 12:18 PM Patient Name: Reema Shah Date of : 1975 Reason for Consult: Discharge Plan: Plan A: Intermediate Care facility Plan A : Post Acute Patient Choice 1: [facility] Discharging Transportation Plan: Discharge Plan Status: pend medical readiness Assessment and Background Information: Per chart, pt is from [facility] and [place], CME, updated. Pt states just transferred from [place] to [facility] 'a couple days ago because I didn't like the quality control director at [facility].' Ptstates plan is return to [facility] but would like a SNF list to take with her at de to see if thereis somewhere else she could transfer to. Pt has 30 bedhold days per [facility]. Pt will need transport to return to [facility] at de. Pt states was at [facility] in the past. Pt has father and sisterlisted as contacts and would like to keep them on chart, no LW/HPOA on file. CM to follow. 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 living at a nursing facility?: Yes Care Facility Name: [facility] Prior to Admission Home Care Services: No Patient expects to be discharged to:: [facility] Does the patient need discharge transport arranged?: [...] pain:: right side Chronic pain timing:: Constant [id number] Consult note* Destiny Ayers RN - 06/05/2024 11:44 AM EDT Associated Order(s): IP CONSULT TO CARE MANAGEMENT Care Management Consult Note Date: 06/05/2024 Time: 12:18 PM Patient Name: Reema hSah Date of : 1975 Reason for Consult: Discharge Plan: Plan A: Intermediate Care facility Plan A : Post Acute Patient Choice 1: [facility] Discharging Transportation Plan: Discharge Plan Status: pend medical readiness Assessment and Background Information: Per chart, pt is from [facility] and [place], CME, updated. Pt states just transferred from [place] to [facility] 'a couple days ago because I didn't like the quality control director at [facility].' Ptstates plan is return to [facility] but would like a SNF list to take with her at de to see if thereis somewhere else she could transfer to. Pt has 30 bedhold days per [facility]. Pt will need transport to return to [facility] at de. Pt states was at [facility] in the past. Pt has father and sisterlisted as contacts and would like to keep them on chart, no LW/HPOA on file. CM to follow. 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 living at a nursing facility?: Yes Care Facility Name: [facility] Prior to Admission Home Care Services: No Patient expects to be discharged to:: [facility] Does the patient need discharge transport arranged?: [...] side Chronic pain timing:: Constant * Chantal Richards, CHAYA - 06/04/2024 11:52 PM EDT [facility] SURGICAL HISTORY & PHYSICAL/CONSULTATION NOTE [...] Center/[facility] Acute kidney injury (HCC) 05/22/2018 [facility]/Jonatan Chiu DO Anxiety Arm abrasion 06/19/2019 INFO GAINED FROM: /[facility] ED VISIT NOTE --- AC GAO MD Calcaneal spur of right foot 2016 Documented on x-ray CKD (chronic kidney disease) Congestive heart failure (CHF) ([facility]) [facility] Contusion, hip 06/19/2019 INFO GAINED FROM: /[facility] ED VISIT NOTE --- AC GAO MD Depression Epilepsy ([facility]) 08/06/2011 [facility]- Dr. Chopra Epilepsy ([facility]) 1993 Facet degeneration of lumbar region 10/14/2018 [facility]/Jono ALEXIS, Moi Mild facet degenerative changes seen in the lower lumbar spine Fatty liver [facility]/Joe Mendieta MD Mild fibrofatty changes of the liver Fluid collection (edema) in the arms, legs, hands and feet 03/09/2018 Dr valentina Chopra Gastritis determined by endoscopy 12/29/2016 Dr. LeeCyzwzv-Mbdoigkir-meoutjwqxtlcd nonbleeding with biopsy 1 para 1 Hepatic steatosis [facility]/Heidy Jara MD Mild Hiatal hernia 12/29/[address] Lobo grade 4 Hypercholesterolemia [facility]/Jonatan Chiu DO Hypertension 2000 2000-present Insomnia [facility] Kidney stone [facility] Laceration of head 06/19/2019 INFO GAINED FROM: /[facility] ED VISIT NOTE --- AC GAO MD Lung nodule 12/15/2017 0.5 cm pleural based nodule in right middle lobe. Mild linear atelectasis Mitral valve prolapse [facility] Motor seizure ([facility]) 03/16/2019 INFO GAINED FROM: /[facility] ED VISIT --- GILMAN DO,CAREN Rectus diastasis [facility]/Heidy Jara MD Present with small wide necked perumbical ventral containing fat. Second degree burn of foot 04/23/2018 Right Foot - [facility] Sleep apnea Stroke ([facility]) 2000 mild Tremor Past Surgical History: Procedure Laterality Date Conner pH capsule placement 02/01/2017 Dr. Lobo BREAST REDUCTION 1999 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 I have reviewed and agree [...] of care as below documented in this [id number] Consult note* Chantal Richards, CHAYA - 06/04/2024 11:52 PM EDT [facility] SURGICAL HISTORY & PHYSICAL/CONSULTATION NOTE [...] Past Medical History: Diagnosis Date Acquired thrombocytopenia ([facility]) [facility] [facility] Acute kidney injury (HCC) 05/22/2018 [facility]/Jonatan Chiu DO Anxiety Arm abrasion 06/19/2019 INFO GAINED FROM: /[facility] ED VISIT NOTE --- AC GAO MD Calcaneal spur of right foot 2016 Documented on x-ray CKD (chronic kidney disease) Congestive heart failure (CHF) ([facility]) [facility] Contusion, hip 06/19/2019 INFO GAINED FROM: /[facility] ED VISIT NOTE --- AC GAO MD Depression Epilepsy ([facility]) 08/06/2011 [facility]- Dr. Chopra Epilepsy ([facility]) 1993 Facet degeneration of lumbar region 10/14/2018 [facility]/Jono ALEXIS, Teresaus Mild facet degenerative changes seen in the lower lumbar spine Fatty liver [facility]/Joe Mendieta MD Mild fibrofatty changes of the liver Fluid collection (edema) in the arms, legs, hands and feet 03/09/2018 Dr valentina Chopra Gastritis determined by endoscopy 12/29/2016 Dr. GonzalezUwrptu-Izjrobgvl-goqczrrkcosek nonbleeding with biopsy 1 para 1 Hepatic steatosis [facility]/Heidy Jara MD Mild Hiatal hernia 12/29/[address] Lobo grade 4 Hypercholesterolemia [facility]/Jonatan Chiu DO Hypertension 2000 2000-present Insomnia [facility] Kidney stone [facility] Laceration of head 06/19/2019 INFO GAINED FROM: /[facility] ED VISIT NOTE --- MURRAY ALEXIS,AC A Lung nodule 12/15/2017 0.5 cm pleural based nodule in right middle lobe. Mild linear atelectasis Mitral valve prolapse [facility]/Lopez Shaikh Motor seizure (HCC) 03/16/2019 INFO GAINED FROM: /[facility] ED VISIT --- MUKUL STEELE,CAREN Rectus diastasis [facility]/Heidy Jara MD Present with small wide necked perumbical ventral containing fat. Second degree burn of foot 04/23/2018 Right Foot - [facility] Sleep apnea Stroke (HCC) 2000 mild Tremor Past Surgical History: Procedure Laterality Date Conner pH capsule placement 02/01/2017 Dr. Lobo BREAST REDUCTION 1999 [facility]-nonperforating gastritis ESOPHAGEAL [...] Acetaminophen Rash Not listed as allergy per ECF medication list Penicillins Rash REVIEW OF SYSTEMS: [...] note with the relevant labs, studies, and franchise business consultant notes. I have reviewed and agree [...] IV antibiotics Remainder of care as below [facility] Work Phone: [phone] Emergency department Note* Sylvia Gaston RN - 06/04/2024 11:47 PM EDT Report given to room 2019 nurse [id number] Emergency department Note* Sylvia Gaston RN - [...] SRx2. Call light in reach. * Bang Tovar, DO - 06/04/2024 9:07 PM EDT EMERGENCY MEDICINE PROVIDER NOTE WELCOME TO [facility] NAME: Reema Shah AGE: 48 y.o. SEX: female : 1975 ENCOUNTER DATE: 06/05/24 CSN: [id number] PCP: Jyoti Gupta MD History of Presenting [...] as of 06/05/24 0332 Sun Jun 04, 2024 2144 Potassium(!): 5.2 Slightly hemolyzed [ZW] 2228 NT [...] ear normal. Nose: Nose normal. Mouth/Throat: Lips: [place]. Mouth: Mucous membranes are moist. Eyes: General: [...] All other components within normal limits Narrative: [facility] Laboratory Services has implemented the eGFR calculation approach that does not have a coefficient for race that conforms to the NKF-ASN Task Force Recommendations. LIPASE - Abnormal; Notable for the following components: Lipase 66 (*) All other components within normal limits URINALYSIS - Abnormal; Notable for the following components: Specific [place] 1.028 (*) pH, Urine 8.0 (*) All [...] Procedure Abnormality Status --------- ------ CBC Auto Differential[[id number]] Abnormal Final result Manual Differential[[id number]] Final result CBC and Diff Morphology[[id number]] Abnormal Final result Please view results for these tests on the individual orders. TROPONIN CBC AND DIFFERENTIAL Narrative: The following orders were created for panel order CBC and Differential. Procedure Abnormality Status --------- ------ CBC Auto Differential[[id number]] Please view results for these tests on [...] injection 500 mg (500 mg Intravenous Given 06/05/24117) metoprolol (LOPRESSOR) injection 5 mg (has no administration in time range) lidocaine patch 1 patch (has no administration in time range) LORazepam (ATIVAN) injection 0.5 mg (0.5 mg Intravenous Given 06/05/24117) valproate (DEPACON) 500 mg in sodium chloride [...] Center/[facility] Acute kidney injury (HCC) 05/22/2018 [facility]/Jonatan Chiu DO Anxiety Arm abrasion 06/19/2019 INFO GAINED FROM: /[facility] ED VISIT NOTE --- AC GAO MD Calcaneal spur of right foot 2016 Documented on x-ray CKD (chronic kidney disease) Congestive heart failure (CHF) ([facility]) [facility]opez Shaikh Contusion, hip 06/19/2019 INFO GAINED FROM: /[facility] ED VISIT NOTE --- AC GAO MD Depression Epilepsy ([facility]) 08/06/2011 [facility]- Dr. Chopra Epilepsy ([facility]) 1993 Facet degeneration of lumbar region 10/14/2018 [facility]/Jono ALEXIS, Saulius Mild facet degenerative changes seen in the lower lumbar spine Fatty liver [facility]/Joe Mendieta MD Mild fibrofatty changes of the liver Fluid collection (edema) in the arms, legs, hands and feet 03/09/2018 Dr valentina Chopra Gastritis determined by endoscopy 12/29/2016 Dr. GonzalezDkdutz-Kxtfbsfdp-bscfiqqlkhjih nonbleeding with biopsy 1 para 1 Hepatic steatosis [facility]/Heidy Jara MD Mild Hiatal hernia 12/29/[address] Lobo grade 4 Hypercholesterolemia [facility]/Jonatan Chiu DO Hypertension 2000 2000-present Insomnia [facility]/Lopez Shaikh Kidney stone [facility]/Lopez Shaikh Laceration of head 06/19/2019 INFO GAINED FROM: /[facility] ED VISIT NOTE --- AC GAO MD Lung nodule 12/15/2017 0.5 cm pleural based nodule in right middle lobe. Mild linear atelectasis Mitral valve prolapse [facility]/L[facility] Shaikh Motor seizure ([facility]) 03/16/2019 INFO GAINED FROM: /[facility] ED VISIT --- GILMAN DO,CAREN Rectus diastasis [facility]/Heidy Jara MD Present with small wide necked perumbical ventral containing fat. Second degree burn of foot 04/23/2018 Right Foot - [facility] Sleep apnea Stroke ([facility]) 2000 mild Tremor Family History Problem Relation [...] BREAST REDUCTION 2000 bilateral [facility] 4 hiatal hernia-nonperforating gastritis ESOPHAGEAL MANOMETRY 02/01/2017 HERNIA REPAIR 06/11/2017 Dr Richards INTRAUTERINE DEVICE INSERTION 02/15/2015 Dr. Pennie Meyers OBGYN Laparoscopic LINX sphincter augmentation with cruroplasty 06/11/2017 Dr. Loob WISDOM TOOTH EXTRACTION Social History Socioeconomic History [...] . Bang Tovar DO ED Attending Physician [facility] (Please note that portions of this note may have been completed with a voice recognition program. There is a possibility of [id number] errors inherent to this technology that may [...] of arrival: Comments: MIFFLIN documented in this [id number] History and physical note* Scott Topete MD - 06/04/2024 11:44 PM EDT [facility] -- [facility] Patient Name: Reema Shah : 1975 MR #: [id number] Admit Date: 06/04/2024 Physicians: Jyoti Gupta MD (Family); No ref. provider found (Referring) Reema Shah is a 48 y.o. female patient of Jeanie Ayala MD with history of Thrombocytopenia, anxiety, CKD, CHF, depression, epilepsy, fatty liver, gastritis, MR, MELQUIADES, stroke, tremor presented to [facility] with abdominal pain. Acute appendicitis Admit [...] gastritis, MR, MELQUIADES, stroke, tremor presented to [facility] with abdominal pain. Patient presenting with [...] no other complaints patient resides in a halfway she had history of seizures and myoclonic [...] Past Medical History: Diagnosis Date Acquired thrombocytopenia ([facility]) [facility]/Lopez Shaikh Acute kidney injury ([facility]) 05/22/2018 [facility]/Jonatan Chiu DO Anxiety Arm abrasion 06/19/2019 INFO GAINED FROM: /[facility] ED VISIT NOTE --- AC GAO MD Calcaneal spur of right foot 2016 Documented on x-ray CKD (chronic kidney disease) Congestive heart failure (CHF) ([facility]) [facility] Shaikh Contusion, hip 06/19/2019 INFO GAINED FROM: /[facility] ED VISIT NOTE --- AC GAO MD Depression Epilepsy ([facility]) 08/06/2011 [facility]- Dr. Chopra Epilepsy ([facility]) 1993 Facet degeneration of lumbar region 10/14/2018 [facility]/Jono ALEXIS, Moi Mild facet degenerative changes seen in the lower lumbar spine Fatty liver [facility]/Joe Mendieta MD Mild fibrofatty changes of the liver Fluid collection (edema) in the arms, legs, hands and feet 03/09/2018 Dr valentina Chopra Gastritis determined by endoscopy 12/29/2016 Dr. GonzalezIcquol-Lraooizab-kbmjzqsfqnclp nonbleeding with biopsy 1 para 1 Hepatic steatosis [facility]/Heidy Jara MD Mild Hiatal hernia 12/29/[address] Lobo grade 4 Hypercholesterolemia [facility]/Jonatan Chiu DO Hypertension 2000 2000-present Insomnia [facility] Shaikh Kidney stone [facility]/Lopez Shaikh Laceration of head 06/19/2019 INFO GAINED FROM: /[facility] ED VISIT NOTE --- MURRAY ALEXIS,AC Escobar Lung nodule 12/15/2017 0.5 cm pleural based nodule in right middle lobe. Mild linear atelectasis Mitral valve prolapse [facility] Motor seizure (HCC) 03/16/2019 INFO GAINED FROM: /[facility] ED VISIT --- MUKUL STEELE,CAREN Rectus diastasis [facility]/Heidy Jara MD Present with small wide necked perumbical ventral containing fat. Second degree burn of foot 04/23/2018 Right Foot - [facility] Sleep apnea Stroke (HCC) 2000 mild Tremor Past Surgical History Past Surgical History: Procedure Laterality Date Conner pH capsule placement 02/01/2017 Dr. Lobo BREAST REDUCTION 1999 bilateral EGD 12/29/[facility]-grade 4 hiatal hernia-nonperforating gastritis [...] normal coloration Psych: normal mood and affect [id number] NoteHMS HISTORY AND PHYSICAL -- [facility] Patient Name: Reema Shah : 1975 MR #: [id number] Admit Date: 06/04/2024 Physicians: Jyoti Gupta MD (Family); No ref. provider found (Referring) Reema Shah is a 48 y.o. female patient of Jeanie Ayala MD with history of Thrombocytopenia, anxiety, CKD, CHF, depression, epilepsy, fatty liver, gastritis, MR, MELQUIADES, stroke, tremor presented to [facility] with abdominal pain. Acute appendicitis Admit [...] gastritis, MR, MELQUIADES, stroke, tremor presented to [facility] with abdominal pain. Patient presenting with [...] no other complaints patient resides in a halfway she had history of seizures and myoclonic [...] Past Medical History: Diagnosis Date Acquired thrombocytopenia ([facility]) [facility] Shaikh Acute kidney injury (HCC) 05/22/2018 [facility]/Jonatan Chiu DO Anxiety Arm abrasion 06/19/2019 INFO GAINED FROM: /[facility] ED VISIT NOTE --- AC GAO MD Calcaneal spur of right foot 2016 Documented on x-ray CKD (chronic kidney disease) Congestive heart failure (CHF) ([facility]) [facility] Shaikh Contusion, hip 06/19/2019 INFO GAINED FROM: /[facility] ED VISIT NOTE --- AC GAO MD Depression Epilepsy (HCC) 08/06/2011 [facility]- Dr. Chopra Epilepsy ([facility]) 1993 Facet degeneration of lumbar region 10/14/2018 [facility]/Jono ALEXIS, Moi Mild facet degenerative changes seen in the lower lumbar spine Fatty liver [facility]/Joe Mendieta MD Mild fibrofatty changes of the liver Fluid collection (edema) in the arms, legs, hands and feet 03/09/2018 Dr valentina Chorpa Gastritis determined by endoscopy 12/29/2016 Dr. GonzalezHshgfd-Yngzynxcp-ititwxriykyhw nonbleeding with biopsy 1 para 1 Hepatic steatosis [facility]/Heidy Jara MD Mild Hiatal hernia 12/29/[address] Lobo grade 4 Hypercholesterolemia [facility]/Jonatan Chiu DO Hypertension 2000 2000-present Insomnia [facility] Sha[facility] Kidney stone [facility] Laceration of head 06/19/2019 INFO GAINED FROM: /[facility] ED VISIT NOTE --- AC GAO MD Lung nodule 12/15/2017 0.5 cm pleural based nodule in right middle lobe. Mild linear atelectasis Mitral valve prolapse [facility] Sha[facility] Motor seizure (HCC) 03/16/2019 INFO GAINED FROM: /[facility] ED VISIT --- MUKUL STEELE,CAREN Rectus diastasis [facility]/Heidy Jara MD Present with small wide necked perumbical ventral containing fat. Second degree (more content not included)...[facility]08-18-2024 History and physical note* Scott Topete MD - 06/04/2024 11:44 PM EDT [facility] -- [facility] Patient Name: Reema Shah : 1975 MR #: [id number] Admit Date: 06/04/2024 Physicians: Jyoti Gupta MD (Family); No ref. provider found (Referring) Reema Shah is a 48 y.o. female patient of Jeanie Ayalam, MD with history of Thrombocytopenia, anxiety, CKD, CHF, depression, epilepsy, fatty liver, gastritis, MR, MELQUIADES, stroke, tremor presented to [facility] with abdominal pain. Acute appendicitis Admit [...] gastritis, MR, MELQUIADES, stroke, tremor presented to [facility] with abdominal pain. Patient presenting with [...] no other complaints patient resides in a halfway she had history of seizures and myoclonic [...] Past Medical History: Diagnosis Date Acquired thrombocytopenia ([facility]) [facility] Acute kidney injury (HCC) 05/22/2018 [facility]/Jonatan Chiu DO Anxiety Arm abrasion 06/19/2019 INFO GAINED FROM: /[facility] ED VISIT NOTE --- AC GAO MD Calcaneal spur of right foot 2016 Documented on x-ray CKD (chronic kidney disease) Congestive heart failure (CHF) ([facility]) [facility] Shaikh Contusion, hip 06/19/2019 INFO GAINED FROM: /[facility] ED VISIT NOTE --- AC GAO MD Depression Epilepsy ([facility]) 08/06/2011 [facility]- [facility]. Chopra Epilepsy ([facility]) 1993 Facet degeneration of lumbar region 10/14/2018 [facility]/Jono ALEXIS, ulius Mild facet degenerative changes seen in the lower lumbar spine Fatty liver [facility]/Joe Mendieta MD Mild fibrofatty changes of the liver Fluid collection (edema) in the arms, legs, hands and feet 03/09/2018 Dr valentina Chopra Gastritis determined by endoscopy 12/29/2016 Dr. GonzalezDrykig-Lalrtdmjy-amrouuvhsfghv nonbleeding with biopsy 1 para 1 Hepatic steatosis [facility]/Heidy Jara MD Mild Hiatal hernia 12/29/[address] Lobo grade 4 Hypercholesterolemia [facility]/Jonatan Chiu DO Hypertension 2000 2000-present Insomnia [facility]opez Shaikh Kidney stone [facility] Shaikh Laceration of head 06/19/2019 INFO GAINED FROM: /[facility] ED VISIT NOTE --- AC GAO MD Lung nodule 12/15/2017 0.5 cm pleural based nodule in right middle lobe. Mild linear atelectasis Mitral valve prolapse [facility] Sha[facility] Motor seizure ([facility]) 03/16/2019 INFO GAINED FROM: /[facility] ED VISIT --- MUKUL STEELE,CAREN Rectus diastasis [facility]/Heidy Jara MD Present with small wide necked perumbical ventral containing fat. Second degree burn of foot 04/23/2018 Right Foot - [facility] Sleep apnea Stroke (HCC) 2000 mild Tremor Past Surgical History Past Surgical History: Procedure Laterality Date Conner pH capsule placement 02/01/2017 Dr. Lobo BREAST REDUCTION 2000 [facility]-nonperforating gastritis ESOPHAGEAL [...] normal mood and affect documented in this [id number] Note* ED Procedure Note - Bang Tovar DO - 06/04/2024 11:35 PM EDTAssociated Order(s): EKG 12-lead EKG 12-lead Date/Time: 06/04/2024 9:39 PM Performed by: Bang Tovar DO Authorized by: Bang Tovar DO Interpreted by ED attending physician Rhythm: sinus rhythm BPM: 70 Conduction: conduction normal ST Segments: ST segments normal T Waves: T waves normal Clinical impression: normal ECG [id number] Emergency department Note* Sylvia Gaston RN - 06/04/2024 11:16 PM EDT Report received from Royer LOPEZ [id number] Emergency department Note* Maxine Vance RN - 06/04/2024 10:54 PM EDT Resting in bed. Eyes closed. Breathing even and unlabored. No distress noted. SRx2. Call light in reach. [id number] Emergency department Note* Maxine Vance RN - 06/04/2024 9:46 PM EDT In bed resting. No distress. This nurse and Manju LOPEZ cartside. Pure wick placed. Tolerated well.No other needs. SRx2. Call light in reach. [id number] Physician Emergency department Note* Bang Tovar, DO - 06/04/2024 9:07 PM EDT EMERGENCY MEDICINE PROVIDER NOTE WELCOME TO [facility] NAME: Reema Shah AGE: 48 y.o. SEX: female : 1975 ENCOUNTER DATE: 06/05/24 CSN: [id number] PCP: Jyoti Gupta MD History of Presenting [...] ear normal. Nose: Nose normal. Mouth/Throat: Lips: [place]. Mouth: Mucous membranes are moist. Eyes: General: [...] All other components within normal limits Narrative: [facility] has implemented the eGFR calculation approach that does not have a coefficient for race that conforms to the NKF-ASN Task Force Recommendations. LIPASE - Abnormal; Notable for the following components: Lipase 66 (*) All other components within normal limits URINALYSIS - Abnormal; Notable for the following components: Specific [place] 1.028 (*) pH, Urine 8.0 (*) All [...] Procedure Abnormality Status --------- ------ CBC Auto Differential[[id number]] Abnormal Final result Manual Differential[[id number]] Final result CBC and Diff Morphology[[id number]] Abnormal Final result Please view results for these tests on the individual orders. TROPONIN CBC AND DIFFERENTIAL Narrative: The following orders were created for panel order CBC and Differential. Procedure Abnormality Status --------- ------ CBC Auto Differential[[id number]] Please view results for these tests on [...] % infusion (75 mL/hr Intravenous New Bag 06/05/24109) levETIRAcetam (KEPPRA) injection 500 mg (500 mg Intravenous Given 06/05/24117) metoprolol (LOPRESSOR) injection 5 mg (has no administration in time range) lidocaine patch 1 patch (has no administration in time range) LORazepam (ATIVAN) injection 0.5 mg (0.5 mg Intravenous Given 06/05/24117) valproate (DEPACON) 500 mg in sodium chloride [...] Past Medical History: Diagnosis Date Acquired thrombocytopenia ([facility]) [facility] Acute kidney injury ([facility]) 05/22/2018 [facility]/Jonatan Chiu DO Anxiety Arm abrasion 06/19/2019 INFO GAINED FROM: /[facility] ED VISIT NOTE --- AC GAO MD Calcaneal spur of right foot 2016 Documented on x-ray CKD (chronic kidney disease) Congestive heart failure (CHF) ([facility]) [facility]opez Shaikh Contusion, hip 06/19/2019 INFO GAINED FROM: /[facility] ED VISIT NOTE --- AC GAO MD Depression Epilepsy ([facility]) 08/06/2011 [facility]- [facility]. Chopra Epilepsy (HCC) 1994 Facet degeneration of lumbar region 10/14/2018 [facility]/Jono ALEXIS, Saulius Mild facet degenerative changes seen in the lower lumbar spine Fatty liver [facility]/Joe Mendieta MD Mild fibrofatty changes of the liver Fluid collection (edema) in the arms, legs, hands and feet 03/09/2018 Dr valentina Chopra Gastritis determined by endoscopy 12/29/2016 Dr. LeeCvbctn-Yxcnsabxj-mkarcbewqztbl nonbleeding with biopsy 1 para 1 Hepatic steatosis [facility]/Heidy Jara MD Mild Hiatal hernia 12/29/[address] Lobo grade 4 Hypercholesterolemia [facility]/Jonatan Chiu DO Hypertension 2000 2000-present Insomnia [facility]/Lopez Shaikh Kidney stone [facility] Sha[facility] Laceration of head 06/19/2019 INFO GAINED FROM: /[facility] ED VISIT NOTE --- MURRAY ALEXIS,AC A Lung nodule 12/15/2017 0.5 cm pleural based nodule in right middle lobe. Mild linear atelectasis Mitral valve prolapse [facility]/Lopez Shaikh Motor seizure (HCC) 03/16/2019 INFO GAINED FROM: /[facility] ED VISIT --- MUKUL STEELE,CAREN Rectus diastasis [facility]/Heidy Jara MD Present with small wide necked perumbical ventral containing fat. Second degree burn of foot 04/23/2018 Right Foot - [facility] Sleep apnea Stroke (HCC) 2000 mild [...] BREAST REDUCTION 1999 [facility]-nonperforating gastritis ESOPHAGEAL [...] Acetaminophen Rash Not listed as allergy per ECF medication list Penicillins Rash MEDICATIONS: Medications reviewed [...] . Bang Tovar DO ED Attending Physician [facility] (Please note that portions of this note may have been completed with a voice recognition program. There is a possibility of bfbjf-g-ladn errors inherent to this technology that may be missed during proofreading and efforts were made to edit the dictations but occasionally words are mis-transcribed.) Bang Tovar DO Resident 06/05/24 0332 [id number] Emergency department Triage note* Maxine Vance RN - 06/04/2024 8:43 PM EDT Pt arrives to ED for abdominal pain. Pt states this started 2 hours ago. Pt also states she vomiteda few times. Pt arrives in no distress. Breathing even and unlabored. No distress. GCS 15. [id number] Emergency department Note* Neelima Barroso RN - 06/04/2024 8:42 PM EDT Bed: 12 Expected date: Expected time: Means of arrival: Comments: MIFFLIN [id number] History of Present illness Narrative* Gayatri Bobby PA-C - 05/31/2024 3:00 PM EDT DATE OF SERVICE: 05/31/2024 PATIENT NAME: Reema Shah : 1975 AGE: 48 y.o. CLINIC NUMBER: [id number] Visit type: New Chief Complaint Patient presents [...] previous diana tment with Vaseline. Currently using Phreesiaar tree body wash, no lotion and unsure of the laundry detergent. Patient stated when she lived in [place] that is when the redness got worse and a provider in [place] gave her a solution to put on the areas. 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 Are you , trying [...] on face, armpits, groin. 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 Patient [...] Bobby PA-C 05/31/24 3:32 PM REFERRING MD: [id number] [facility] [id number] documented in this [facility]07-03-2024 History of Present illness Narrative* Shayy [...] done previously DV: neg April 2024 DEXA: VANDAI There are no Patient Instructions on file [...] notes that when she saw gynecology in [place] they felt this was not pelvic related [...] nursing note reviewed. Exam conducted with a cloth shrinking supervisor present. Constitutional: General: She is not in [...] time. Shayy Mcginnis MD documented in this [facility]: 1(897) 552-546806-19-2024 History of Present illness Narrative* Khalida Mtz MD - 04/05/2024 11:30 AM EDT Division of Minimally Invasive Gynecologic Surgery [facility] 04/05/24 Gynecology Visit CC: Chief Complaint Patient presents with Consult Endometriosis Fibroids Chief Clinical Officer not required Reviewed and approved by NOHEMI NEWELL on 04/05/24 at 10:56 AM. Reema [...] Labs: --H/H 12.4/36.4 --Plt: 90 --Cr 1.15 SHEET HANGER Hx Gynecologic history: Contraception/menstrual regulation: none Desires [...] PSHx, SHx, Allergies, and Medications updated in [facility]. Past Medical History: Diagnosis Date [...] other specified conditions History of seizure Thrombocytopenia ([facility]) Unspecified kidney failure 04/08/2021 Renal failure Valproic [...] ANGIO W AND WO IV CONTRAST 05/09/2022 [facility] CT HEAD ANGIO W AND WO IV CONTRAST 05/09/2022 CT HEAD ANGIO W AND WO IV CONTRAST 05/09/2022 [facility] OTHER SURGICAL HISTORY 01/30/2022 [...] Insecurity: No Food Insecurity (03/04/2024) Received from [facility] Hunger Vital Sign Worried About Running Out of Food in the Last Year: Never true Ran Out of Food in the Last Year: Never true Transportation Needs: No Transportation Needs (03/04/2024) Received from [facility] PRAPARE - Transportation Lack of Transportation (Medical): No Lack of Transportation (Non-Medical): No Physical Activity: Not on file Stress: Not on file Social Connections: Not on file Intimate Partner Violence: Not At Risk (03/04/2024) Received from [facility] Humiliation, Afraid, Rape, and Kick questionnaire Fear of Current or Ex-Partner: No Emotionally Abused: No Physically Abused: No Sexually Abused: No Housing Stability: Low Risk (03/04/2024) Received from [facility] Housing Stability Vital Sign Unable to Pay [...] MD Division of Minimally Invasive Gynecologic Surgery [facility] documented in this [facility] Work Phone: 1(135) 461-603006-18-2024 History of Present illness Narrative* Mejia Cullen MD - 04/04/2024 11:30 AM EDT Images from the original note were not included. [facility] [address] [place] [phone] Dept: [phone] Dept Loc: [phone] [facility] Consultation [...] shoulder xray normal. Patient was admitted to [facility] 03/04/24 with concern for seizure episodes while in ED for chest pain. Home antiepileptic medication levels were checked and Keppra was increased.Tremor was suspected to be due to mcfp Depakote use and patient instructed to follow [...] Has powerchair. Lives in assisted living facility ([facility]). Moving to [facility] next month. Workup: CT Brain, CT [...] Holter Monitor and Nuclear Stress Test at [facility] 10/05/23 for pre-op testing were negative. CT Head 09/16/23 (report only, [facility]) The ventricles, cisterns and sulci are [...] days of PT and OT quarterly at [facility] [place] - Continue to pursue new powerchair. New prescription sent to [facility]. Face to face evaluation performed by this [...] Physical Medicine and Rehabilitation documented in this [facility]06-18-2024 Instructions* Patient Instructions* Mejia Cullen MD - 04/04/2024 11:30 AM EDT Call [phone] to schedule with seizure specialist Dr. Hernandez. documented in this [facility]05-21-2024 NoteHMS DISCHARGE SUMMARY -- [facility] Reema Shah Admitted: 03/04/2024 Discharge Date: [...] a day . cyanocob (more content not included)...[facility]05-20-2024 NoteS PROGRESS NOTE Assessment and Plan Reema Shah is a 48 y.o. female patient of [facility], Jyoti Maharaj MD with history of [...] hospitalization due to: Neurology evaluation Discharge Location: [facility] Quality Measures DVT Prophylaxis: heparin subcutaneous Lyon [...] affect AUTHENTICATED BY CATALINA OLIVEIRA, ON 03/06/2024 12:01:21[facility] 03-06-2024 NoteNeurology Follow Up Note [facility] Date of Service: 03/06/24 Service Type: Follow up, neurology Patient: Reema Shah Date of : 1975 (48 y.o.) Referring Provider: Refer to consult order in electronic medical record Assessment ASSESSMENT: Reema Shah is a 48 y.o. female who presented to [facility] on 03/04/2024 with jerking movements Patient [...] reports having a prior EMU stay in [place] a few years ago, but I do not see any sign of that in the records from [facility], , or [facility], which are the only places I know of with EMU capacity in the [place] area. She says it characterized her seizures [...] in exam. Marzena Gresham MD Staff Neurologist [facility] [address] [id number] [address] [facility] 03/06/24 Parts of this note may have been dictated using [employer], a speech-recognition software. Syntax errors and sound-alike [...] GTC activity. Follows with Dr. Gillette in [place]. Has been using Depakote and Keppra for [...] got an EMU stay years ago in [place] and it described her seizures as grand mal. There is a chart history of pseudose (more content not included)...[facility]05-19-2024 NoteHMS PROGRESS NOTE Assessment and Plan Reema Shah is a 48 [facility] Jyoti Maharaj MD with history of hypertension [...] hospitalization due to: Neurology evaluation Discharge Location: [facility] Quality Measures DVT Prophylaxis: heparin subcutaneous Lyon [...] affect AUTHENTICATED BY CATALINA OLIVEIRA, ON 03/05/2024 13:51:[address] [place] [address] 03-04-2024 NoteHMS HISTORY AND PHYSICAL -- [facility] Patient Name: Reema Shah : 1975 MR #: [id number] Admit Date: 03/04/2024 Physicians: Jyoti Gupta MD [...] Past Medical History: Diagnosis Date Acquired thrombocytopenia ([facility]) Neuro [facility]/Lopez Shaikh Acute kidney injury ([facility]) 05/22/2018 [facility]/Jonatan Chiu DO Anxiety Arm abrasion 06/19/2019 INFO GAINED FROM: /[facility] ED VISIT NOTE --- AC GAO MD Calcaneal spur of right foot 2016 Documented on x-ray CKD (chronic kidney disease) Congestive heart failure (CHF) ([facility]) [facility]/Lopez Shaikh Contusion, hip 06/19/2019 INFO GAINED FROM: /[facility] ED VISIT NOTE --- AC GAO MD Depression Epilepsy ([facility]) 08/06/2011 [facility]- Dr. Chopra Epilepsy ([facility]) 1993 Facet degeneration of lumbar region 10/14/2018 [facility]/Jono ALEXIS, Moi Mild facet degenerative changes seen in the lower lumbar spine Fatty liver [facility]/Joe Mendieta MD Mild fibrofatty changes of the liver Fluid colle (more content not included)...[facility]04-19-2024 History of Present illness Narrative* Litzy Arnold LPN - 02/04/2024 9:30 AM EDT Patient desires to establish care. Reports history of endometriosis. Is interested in a hysterectomy.Record form halfway scanned into media. * Olinda Luna MD - 02/04/2024 9:30 AM EDT HPI Reema Shah is a 48 y.o. female who presents today for concerns including EstablishCare. Patient came in to discuss getting a hysterectomy. She reported that her previous Advanced Manufacturing Engineer Doctor had recommended that she get a hysterectomy secondary to endometriosis. Off note, there were no christmas tree grader records on presentation. She did not get [...] given that I do not have any Advanced Manufacturing Engineer records to reference at this time, I [...] period for the last 3 months; perimenopause? Director Emergency Department s\hared amparo she was going to make sure that we get her Advanced Manufacturing Engineer records. Answered all of patient's questions and [...] Olinda Luna MD 02/04/2024 [facility] Telephone encounter Note* Telephone Encounter - Kelly Wilkerson MA - 01/04/2024 9:31 AM EDT This was sent to the wrong pool. [id number] Miscellaneous Notes* Telephone Encounter - Kelly Wilkerson MA - 01/04/2024 9:31 AM EDT This was sent to the wrong pool. * Telephone Encounter - Paige Araya - 01/03/2024 5:18 PM EDT Name of caller: Nat Contact phone number: [phone] Relationship to Patient: [facility] Provider: Jamila Practice: Neuro Chief Complaint/Reason for [...] return their call: No documented in this encounterSFort Hamilton [id number] Telephone encounter Note* Telephone Encounter - Paige Araya - 01/03/2024 5:18 PM EDT Name of caller: Nat Contact phone number: [phone] Relationship to Patient: [facility] Provider: Jamila Practice: Neuro Chief Complaint/Reason for [...] business hours to return their call: No [id number] History of Present illness Narrative* Mejia Cullen MD - 01/03/2024 1:00 PM EDT Images from the original note were not included. [facility] [address] [place] [phone] Dept: [phone] Dept Loc: [phone] [facility] Consultation for Reema Diop Pablo : 1975 Today's Date: 01/03/2024 PCP: Jeanie [...] Has powerchair. Lives in assisted living facility ([facility]). Moving to [facility] next month. Workup: CT Brain, CT [...] Holter Monitor and Nuclear Stress Test at [facility] 10/05/23 for pre-op testing were negative. CT Head 09/16/23 (report only, [facility]) The ventricles, cisterns and sulci are [...] clear. CT C spine 08/25/23 (report only, [facility]) Cervical spine: Alignment: Stable alignment. Cranial [...] Meyers. - Cont PT and OT at [facility] [place] - Continue to pursue new powerchair. New prescription sent to [facility] last week. Face to face evaluation [...] Physical Medicine and Rehabilitation documented in this [facility]03-16-2024 Emergency department Note* Litzy Garcia RN - 01/01/2024 11:59 AM EDT PT DISCHARGED AT THIS TIME. COPY OF DISCHARGE PAPERWORK PROVIDED AND REVIEWED WITH PT AND [employer]ENIX. ALL MEDICATIONS, FOLLOW UP, AND DISCHARGE INSTRUCTIONS REVIEWED WITH PT, EMS, AND [facility]. PT VERBALIZED UNDERSTANDING. PT A&OX4. BREATHS EVEN AND UNLABORED. IV ACCESS REMOVED AND PRESSURE DRESSING APPLIED. [id number] Emergency department Note* Litzy Garcia RN - 01/01/2024 11:59 AM EDT PT DISCHARGED AT THIS TIME. COPY OF DISCHARGE PAPERWORK PROVIDED AND REVIEWED WITH PT AND [employer]ENIX. ALL MEDICATIONS, FOLLOW UP, AND DISCHARGE INSTRUCTIONS REVIEWED WITH PT, EMS, AND [facility]. PT VERBALIZED UNDERSTANDING. PT A&OX4. BREATHS EVEN [...] EDT This PSA spoke with Franco from [employer] @1114 to transport pt back to [facility] 1145 * Litzy Garcia RN - [...] for nausea at this time. * Kindra Lopez, CASE COORDINATOR - 12/31/2023 9:19 PM EDT Images from the original note were not included. [facility] ED DIOMEDES Note: NAME: Reema Shah 48 y.o. CSN: [id number] PCP: Jeanie Ayala MD History: Chief Complaint: [...] she was sitting in her chair at [facility]. States pain in the left chest radiates [...] Past Medical History: Diagnosis Date Acquired thrombocytopenia ([facility]) Neuro [facility]/Lopez Shaikh Acute kidney injury ([facility]) 05/22/2018 [facility]/Jonatan Chiu DO Anxiety Arm abrasion 06/19/2019 INFO GAINED FROM: /[facility] ED VISIT NOTE --- AC GAO MD Calcaneal spur of right foot 2017 Documented on x-ray CKD (chronic kidney disease) Congestive heart failure (CHF) ([facility]) [facility]/Lopez Shaikh Contusion, hip 06/19/2019 INFO GAINED FROM: /[facility] ED VISIT NOTE --- AC GAO MD Depression Epilepsy ([facility]) 08/06/2011 [facility]- Dr. Chopra Epilepsy ([facility]) 1994 Facet degeneration of lumbar region 10/14/2018 [facility]/Moi De La Cruz MD Mild facet degenerative changes seen in the lower lumbar spine Fatty liver [facility]/Joe Mendieta MD Mild fibrofatty changes of the liver Fluid collection (edema) in the arms, legs, hands and feet 03/09/2018 Dr valentina Chopra Gastritis determined by endoscopy 12/29/2016 Dr. LeeQtgeug-Ygloisiai-wlutcaeyucvuf nonbleeding with biopsy 1 para 1 Hepatic steatosis [facility]/Heidy Jara MD Mild Hiatal hernia 12/29/[address] Lobo grade 4 Hypercholesterolemia [facility]/Jonatan Chiu DO Hypertension 2001 2001-present Insomnia [facility]/Lopez Shaikh Kidney stone Neuro [facility]/Lopez Shaikh Laceration of head 06/19/2019 INFO GAINED FROM: /[facility] ED VISIT NOTE --- MURRAY ALEXIS,AC A Lung nodule 12/15/2017 0.5 cm pleural based nodule in right middle lobe. Mild linear atelectasis Mitral valve prolapse [facility]/Lopez Shaikh Motor seizure (HCC) 03/16/2019 INFO GAINED FROM: /[facility] ED VISIT --- MUKUL STEELE,CAREN Rectus diastasis [facility]/Heidy Jara MD Present with small wide necked perumbical ventral containing fat. Second degree burn of foot 04/23/2018 Right Foot - [facility] Sleep apnea Stroke (HCC) 2000 mild Tremor PMSx: Past Surgical History: Procedure Laterality Date Conner pH capsule placement 02/01/2017 Dr. Lobo BREAST REDUCTION 2000 [facility]-nonperforating gastritis ESOPHAGEAL [...] All other components within normal limits Narrative: [facility] Laboratory Services has implemented the eGFR calculation [...] Procedure Abnormality Status --------- ------ CBC Auto Differential[[id number]] Abnormal Final result Please view results for [...] in ED Course. ED Course as of 032214Dec 31, 20232117 WBC: 5.32 [RH] 2117 Hemoglobin: 13.3 [RH] 2117 Hematocrit: 38.9 [RH] 2127 Patient received 1 dose of nitroglycerin with improvement of her chest pain. She refuses another dose [RH] 2147 Troponin T: 8 [RH] 2147 Sodium: 140 [RH] 8 Potassium: 4.5 [RH] 2147 Creatinine(!): 1.38 [RH] 2147 eGFR(!): 47 [RH] 2147 Lipase(!): 66 [RH] 2213 Patient presented to [...] Kindra Lopez CNP ED Advanced Practice Provider [facility] Emergency Department (Please note that portions of this note have been completed with a voice recognition software. Efforts were made to correct any errors, but occasionally words are mis-transcribed.) Kindra Lopez CNP 12/31/232214 * Nubia Garcia RN - 12/31/2023 8:23 [...] on the way in. documented in this [id number] Emergency department Note* Litzy Garcia RN - 01/01/2024 11:30 AM EDT Hourly rounding assessment completed on the patient. [] Patient updated on plan of care [x] All comfort needs addressed [x] Patient updated on duration of visit All questions answered, patient denies further needs. Call light within reach. [id number] Hospital course Narrative* Carolynn Dinh DO - 01/01/2024 11:25 AM EDT Images from the original note were not included. [facility] DISCHARGE SUMMARY -- [facility] Reema Shah Admitted: 12/31/2023 Discharge Date: 01/01/24 PCP Handoff Recommended Outpatient Testing None Results Pending At Discharge None Clinical Summary Reema Shah is a 48 y.o. female patient of Jeanie Ayala MD with history of Thrombocytopenia, anxiety, CKD, CHF, depression, epilepsy, fatty liver, gastritis, MR, seizures, MELQUIADES, stroke, tremor presented to [facility] on 12/31/2023 with Chest pain Chest pain Trop wnl x2, ECG without changes. This does not represent ACS CT reviewed, no acute abnormality explain symptoms Symptoms improved the following day Chronic HFpEF Not in acute exacerbation. P-BNP elevation likely due to CKD Consider addition of MRA or SGLT2i MDD/MALI ITEM PROCESSOR sertraline, buspirone, lorazepam GERD ITEM PROCESSOR famotidine, pantoprazole MELQUIADES CPAP at night CVA Tremors Seizure disorder ITEM PROCESSOR primidone, levetiracetam, divalproex HTN/HLD ITEM PROCESSOR amlodipine, atorvastatin, lisinopril, metoprolol CKD 3a Basweline Cr near 1.4-1.5 Gout ITEM PROCESSOR allopurinol Hypothyroidism ITEM PROCESSOR levothyroxine Discharge Medications Discharge Medications Modified Medications [...] on 01/01/24, 12:23 PM documented in this [id number] Emergency department Note* Hayley Syed PSA - 01/01/2024 11:19 AM EDT This PSA spoke with Franco from [employer] @1114 to transport pt back to [facility] 114 [id number] Emergency department Note* Litzy Garcia RN - 01/01/2024 10:51 AM EDT Pt call light answered. Pt placed on bedpan per request. Pt noted to have a small BM and small amount of urine out put noted. Lani care provided. Pt repositioned and call light in reach. [id number] Emergency department Note* Litzy Garcia RN - 01/01/2024 10:30 AM EDT Hourly rounding assessment completed on the patient. [] Patient updated on plan of care [x] All comfort needs addressed [] Patient updated on duration of visit All questions answered, patient denies further needs. Call light within reach. [id number] Emergency department Note* Litzy Garcia RN - 01/01/2024 9:48 AM EDT Pt incontinent and provided bed bath, clean linen, and brief. Pt provided with warm blankets and repositioned per her request. Call light in reach. [id number] Emergency department Note* Litzy Garcia RN - 01/01/2024 9:30 AM EDT Hourly rounding assessment completed on the patient. [] Patient updated on plan of care [x] All comfort needs addressed [x] Patient updated on duration of visit All questions answered, patient denies further needs. Call light within reach. [id number] Emergency department Note* Litzy Garcia RN - 01/01/2024 9:03 AM EDT Meal tray delivered. [id number] Emergency department Note* Litzy Garcia RN - 01/01/2024 8:30 AM EDT Hourly rounding assessment completed on the patient. [] Patient updated on plan of care [x] All comfort needs addressed [x] Patient updated on duration of visit All questions answered, patient denies further needs. Call light within reach. [id number] History of Present illness Narrative* Carolynn Dinh DO - 01/01/2024 8:22 AM EDT [facility] PROGRESS NOTE Assessment and Plan Reema Shah is a 48 y.o. female patient of Jeanie Ayala MD with history of Thrombocytopenia, anxiety, CKD, CHF, depression, epilepsy, fatty liver, gastritis, MR, seizures, MELQUIADES, stroke, tremor presented to [facility] on 12/31/2023 with Chest pain . Chest pain Trop wnl x2, ECG without changes. This does not represent ACS CT reviewed, no acute abnormality explain symptoms Chronic HFpEF Not in acute exacerbation. P-BNP elevation likely due to CKD Consider addition of MRA or SGLT2i MDD/MALI ITEM PROCESSOR sertraline, buspirone, lorazepam GERD ITEM PROCESSOR famotidine, pantoprazole MELQUIADES CPAP at night CVA Tremors Seizure disorder ITEM PROCESSOR primidone, levetiracetam, divalproex HTN/HLD ITEM PROCESSOR amlodipine, atorvastatin, lisinopril, metoprolol CKD 3a Basweline Cr near 1.4-1.5 Gout ITEM PROCESSOR allopurinol Hypothyroidism ITEM PROCESSOR levothyroxine Discharge Planning Medically Stable for Discharge Date: 12/31 Patient requires continued hospitalization due to: None Discharge Location: [facility] Quality Measures DVT Prophylaxis: heparin subcutaneous Lyon [...] normal mood and affect documented in this [id number] Emergency department Note* Litzy Garcia RN - 01/01/2024 7:30 AM EDT Hourly rounding assessment completed on the patient. [] Patient updated on plan of care [x] All comfort needs addressed [x] Patient updated on duration of visit All questions answered, patient denies further needs. Call light within reach. [id number] Emergency department Note* Litzy Garcia RN - 01/01/2024 7:19 AM EDT Report received from JOHN Cochran. [id number] Emergency department Note* Neelima Barroso RN - 01/01/2024 12:40 AM EDT Bed: 35 Expected date: Expected time: Means of arrival: Comments: 10 BOARDER [id number] Emergency department Note* Nubia Garcia RN - 01/01/2024 12:01 AM EDT Hourly rounding assessment completed on the patient. [x] Patient updated on plan of care [x] All comfort needs addressed [x] Patient updated on duration of visit All questions answered, patient denies further needs. Call light within reach. Patient repositioned and given a new warm blanket at this time [id number] Emergency department Note* Nubia Garcia RN - [...] a snack and drink at this time [id number] Note* ED Attestation Note - Moe Tarango [...] slight chest pain, reasonable to be admitted. [facility] Work Phone: 1(985) 606-918603-15-2024 Miscellaneous Notes* ED Attestation Note - Moe [...] reasonable to be admitted. documented in this [id number] Emergency department Note* Nubia Garcia RN - 12/31/2023 10:10 PM EDT Hourly rounding assessment completed on the patient. [] Patient updated on plan of care [x] All comfort needs addressed [] Patient updated on duration of visit All questions answered, patient denies further needs. Call light within reach. PT ADJUSTED IN THE BED AT THIS TIME [id number] History and physical note* Naveen Hernandez, DO - 12/31/2023 9:54 PM EDT [facility] HISTORY AND PHYSICAL -- [facility] Patient Name: Reema Shah : 1975 MR #: [id number] Admit Date: 12/31/2023 Physicians: Jeanie Ayala MD (Family); Jyoti Gupta* (Referring) Reema Shah is a 48 y.o. female patient of Jeanie Ayala MD with history of Thrombocytopenia, anxiety, CKD, CHF, depression, epilepsy, fatty liver, gastritis, MR, seizures, MELQUIADES, stroke, tremor presented to [facility] on 12/31/2023 with Chest pain . [...] MR, seizures, MELQUIADES, stroke, tremor presented to [facility] on 12/31/2023 with Chest pain . [...] Past Medical History: Diagnosis Date Acquired thrombocytopenia ([facility]) Neuro [facility]/Lopez Shaikh Acute kidney injury ([facility]) 05/22/2018 [facility]/Jonatan Chiu DO Anxiety Arm abrasion 06/19/2019 INFO GAINED FROM: /[facility] ED VISIT NOTE --- AC GAO MD Calcaneal spur of right foot 2016 Documented on x-ray CKD (chronic kidney disease) Congestive heart failure (CHF) ([facility]) [facility]/Lopez Shaikh Contusion, hip 06/19/2019 INFO GAINED FROM: /[facility] ED VISIT NOTE --- AC GAO MD Depression Epilepsy ([facility]) 08/06/2011 [facility]- [facility]. Chopra Epilepsy ([facility]) 1993 Facet degeneration of lumbar region 10/14/2018 [facility]/Jono ALEXIS, Moi Mild facet degenerative changes seen in the lower lumbar spine Fatty liver [facility]/Joe Mendieta MD Mild fibrofatty changes of the liver Fluid collection (edema) in the arms, legs, hands and feet 03/09/2018 Dr valentina Chopra Gastritis determined by endoscopy 12/29/2016 Dr. GonzalezRhqrzd-Dyskxktbs-ilthorvlyxcqz nonbleeding with biopsy 1 para 1 Hepatic steatosis [facility]/Heidy Jara MD Mild Hiatal hernia 12/29/[address] Lobo grade 4 Hypercholesterolemia [facility]/Jonatan Chiu DO Hypertension 2000 2000-present Insomnia [facility]/Lopez Shaikh Kidney stone [facility]/Lopez Shaikh Laceration of head 06/19/2019 INFO GAINED FROM: /[facility] ED VISIT NOTE --- MURRAY ALEXIS,AC A Lung nodule 12/15/2017 0.5 cm pleural based nodule in right middle lobe. Mild linear atelectasis Mitral valve prolapse [facility]/Lopez Shaikh Motor seizure (HCC) 03/16/2019 INFO GAINED FROM: /[facility] ED VISIT --- MUKUL STEELECAREN Rectus diastasis [facility]/Heidy Jara MD Present with small wide necked perumbical ventral containing fat. Second degree burn of foot 04/23/2018 Right Foot - [facility] Sleep apnea Stroke (HCC) 2000 mild Tremor Past Surgical History Past Surgical History: Procedure Laterality Date Conner pH capsule placement 02/01/2017 Dr. Lobo BREAST REDUCTION 1999 [facility]-nonperforating gastritis ESOPHAGEAL MANOMETRY 02/01/2017 HERNIA REPAIR 06/11/2017 Dr Richards INTRAUTERINE DEVICE INSERTION 02/15/2015 Dr. Casper Chepachet OBGYN Laparoscopic LINX sphincter augmentation with cruroplasty [...] normal coloration Psych: normal mood and affect [id number] History and physical note* Naveen Hernandez DO - 12/31/2023 9:54 PM EDT [facility] Patient Name: Reema Shah : 1975 MR #: [id number] Admit Date: 12/31/2023 Physicians: Jeanie Ayala MD (Family); Jyoti Gupta* (Referring) Reema Shah is a 48 y.o. female patient of Jeanie Ayala MD with history of Thrombocytopenia, anxiety, CKD, CHF, depression, epilepsy, fatty liver, gastritis, MR, seizures, MELQUIADES, stroke, tremor presented to [facility] on 12/31/2023 with Chest pain . [...] MR, seizures, MELQUIADES, stroke, tremor presented to [facility] on 12/31/2023 with Chest pain . [...] Past Medical History: Diagnosis Date Acquired thrombocytopenia ([facility]) [facility]/Lopez Shaikh Acute kidney injury ([facility]) 05/22/2018 [facility]/Jonatan Chiu DO Anxiety Arm abrasion 06/19/2019 INFO GAINED FROM: /[facility] ED VISIT NOTE --- AC GAO MD Calcaneal spur of right foot 2016 Documented on x-ray CKD (chronic kidney disease) Congestive heart failure (CHF) ([facility]) [facility]/Lopez Shaikh Contusion, hip 06/19/2019 INFO GAINED FROM: /[facility] ED VISIT NOTE --- AC GAO MD Depression Epilepsy ([facility]) 08/06/2011 [facility]- Dr. Chopra Epilepsy (HCC) 1994 Facet degeneration of lumbar region 10/14/2018 [facility]/Jono ALEXIS, Saulius Mild facet degenerative changes seen in the lower lumbar spine Fatty liver [facility]/Joe Mendieta MD Mild fibrofatty changes of the liver Fluid collection (edema) in the arms, legs, hands and feet 03/09/2018 Dr valentina Chopra Gastritis determined by endoscopy 12/29/2016 Dr. LeeIxipsk-Mlftwzuqd-ehuzjuufixqfl nonbleeding with biopsy 1 para 1 Hepatic steatosis [facility]/Heidy Jara MD Mild Hiatal hernia 12/29/[address] Lobo grade 4 Hypercholesterolemia [facility]/Jonatan Chiu DO Hypertension 2000 2000-present Insomnia [facility]/Lopez Shaikh Kidney stone [facility]/Lopez Shaikh Laceration of head 06/19/2019 INFO GAINED FROM: /[facility] ED VISIT NOTE --- MURRAY ALEXIS,AC A Lung nodule 12/15/2017 0.5 cm pleural based nodule in right middle lobe. Mild linear atelectasis Mitral valve prolapse [facility]/Lopez Shaikh Motor seizure (HCC) 03/16/2019 INFO GAINED FROM: /[facility] ED VISIT --- MUKUL STEELE,CAREN Rectus diastasis [facility]/Heidy Jara MD Present with small wide necked perumbical ventral containing fat. Second degree burn of foot 04/23/2018 Right Foot - [facility] Sleep apnea Stroke (HCC) 2000 mild Tremor Past Surgical History Past Surgical History: Procedure Laterality Date Conner pH capsule placement 02/01/2017 Dr. Lobo BREAST REDUCTION 1999 bilateral [facility]-nonperforating gastritis ESOPHAGEAL [...] normal mood and affect documented in this [id number] Emergency department Note* Nubia Garcia RN - 12/31/2023 9:30 PM EDT Pt does not want to take any more nitroglycerine as she says it upsets her stomach. Education provided and MD notified. [id number] Emergency department Note* Nubia Garcia RN - 12/31/2023 9:29 PM EDT Pt complaining of nausea. MD notified. Pt refusing all medications offered for nausea at this time. [id number] Physician Emergency department Note* Kindra Lopez, CHAYA - 12/31/2023 9:19 PM EDT Images from the original note were not included. [facility] ED DIOMEDES Note: NAME: Reema Shah 48 y.o. CSN: [id number] PCP: Jeanie Ayala MD History: Chief Complaint: [...] she was sitting in her chair at [facility]. States pain in the left chest radiates [...] Past Medical History: Diagnosis Date Acquired thrombocytopenia ([facility]) [facility]/Lopez Shaikh Acute kidney injury ([facility]) 05/22/2018 [facility]/Jonatan Chiu DO Anxiety Arm abrasion 06/19/2019 INFO GAINED FROM: /[facility] ED VISIT NOTE --- AC GAO MD Calcaneal spur of right foot 2016 Documented on x-ray CKD (chronic kidney disease) Congestive heart failure (CHF) ([facility]) [facility]/Lopez Sahikh Contusion, hip 06/19/2019 INFO GAINED FROM: /[facility] ED VISIT NOTE --- AC GAO MD Depression Epilepsy ([facility]) 08/06/2011 [facility]- Dr. Chopra Epilepsy ([facility]) 1994 Facet degeneration of lumbar region 10/14/2018 [facility]/Jono ALEXIS, Teresaus Mild facet degenerative changes seen in the lower lumbar spine Fatty liver [facility]/Joe Mendieta MD Mild fibrofatty changes of the liver Fluid collection (edema) in the arms, legs, hands and feet 03/09/2018 Dr valentina Chopra Gastritis determined by endoscopy 12/29/2016 Dr. LeeGwtoot-Kkgspcpxj-smcewaihdwjlb nonbleeding with biopsy 1 para 1 Hepatic steatosis [facility]/Heidy Jara MD Mild Hiatal hernia 12/29/[address] Lobo grade 4 Hypercholesterolemia [facility]/Jonatan Chiu DO Hypertension 2000 2000-present Insomnia [facility]/Lopez Shaikh Kidney stone [facility]/Lopez Shaikh Laceration of head 06/19/2019 INFO GAINED FROM: /[facility] ED VISIT NOTE --- MURRAY ALEXIS,CA A Lung nodule 12/15/2017 0.5 cm pleural based nodule in right middle lobe. Mild linear atelectasis Mitral valve prolapse [facility]/Lopez Shaikh Motor seizure (HCC) 03/16/2019 INFO GAINED FROM: /[facility] ED VISIT --- GILMAN DO,CAREN Rectus diastasis [facility]/Heidy Jara MD Present with small wide necked perumbical ventral containing fat. Second degree burn of foot 04/23/2018 Right Foot - [facility] Sleep apnea Stroke (HCC) 2000 mild Tremor PMSx: Past Surgical History: Procedure Laterality Date Conner pH capsule placement 02/01/2017 Dr. Lobo BREAST REDUCTION 2000 bilateral [facility]-nonperforating gastritis ESOPHAGEAL [...] All other components within normal limits Narrative: [facility] Laboratory Services has implemented the eGFR calculation [...] Procedure Abnormality Status --------- ------ CBC Auto Differential[[id number]] Abnormal Final result Please view results for [...] T: 8 [RH] 2147 Sodium: 140 [RH] 2147 Potassium: 4.5 [RH] 2147 Creatinine(!): 1.38 [RH] 2147 eGFR(!): 47 [RH] 2147 Lipase(!): 66 [RH] 2213 Patient presented to [...] Kindra Lopez CNP ED Advanced Practice Provider [facility] Emergency Department (Please note that portions of this note have been completed with a voice recognition software. Efforts were made to correct any errors, but occasionally words are mis-transcribed.) Kindra Lopez CNP 12/31/232214 [id number] Emergency department Triage note* Nubia Garcia RN - 12/31/2023 8:23 PM EDT Per EMS patient reporting 10/10 chest pain that radiates across her back that started about an hourago. [id number] Emergency department Note* Nubia Garcia RN - 12/31/2023 8:20 PM EDT Per EMS patient chest pain started an hour ago and it radiates across her back. Per ems they gave her [address] [id number] Telephone encounter Note* Telephone Encounter - Mejia Cullen MD - 12/28/2023 4:24 PM EDT Powerchair and therapy orders reprinted, signed and refaxed to fax listed. [id number] Miscellaneous Notes* Telephone Encounter - Mejia Cullen MD - 12/28/2023 4:24 PM EDT Powerchair and therapy orders reprinted, signed and refaxed to fax listed. * Telephone Encounter - She Chau - 12/28/2023 11:06 AM EDT Name of caller: Toña Contact phone number: [phone] Relationship to Patient: patient Provider: Dr. Cullen [...] states both need to be faxed to [phone]. Please advise. Best time of day caller can be reached: any Patient advised that office/PCP has 24-48 business hours to return their call: N/A documented in this encounterSFort [facility] [id number] Telephone encounter Note* Telephone Encounter - She Chau - 12/28/2023 11:06 AM EDT Name of caller: Toña Contact phone number: [phone] Relationship to Patient: patient Provider: Dr. Cullen [...] states both need to be faxed to [phone]. Please advise. Best time of day caller can be reached: any Patient advised that office/PCP has 24-48 business hours to return their call: N/A [facility] [id number] Telephone encounter Note* Telephone Encounter - Maxine Oconnell - 12/22/2023 2:10 PM EST Name of caller: Dimas Contact phone number: [phone] Relationship to Patient: [facility] Provider: Dr. Cullen Practice: Neurology Chief Complaint/Reason for Call: Dimas states that the patient is now living at their facility and they will be unable to transport the patient that far to her appointments. Dimas is requesting that the patient's medical history/physical reports be faxed to them at [phone] so that they can referher to a closer provider. Please be advised. Best time of day caller can be reached: any Patient advised that office/PCP has 24-48 business hours to return their call: N/A [facility] [id number] Miscellaneous Notes* Telephone Encounter - Maxine Oconnell - 12/22/2023 2:10 PM EST Name of caller: Dimas Contact phone number: [phone] Relationship to Patient: [facility] Provider: Dr. Cullen Practice: Neurology Chief Complaint/Reason for Call: Dimas states that the patient is now living at their facility and they will be unable to transport the patient that far to her appointments. Dimas is requesting that the patient's medical history/physical reports be faxed to them at [phone] so that they can referher to a closer provider. Please be advised. Best time of day caller can be reached: any Patient advised that office/PCP has 24-48 business hours to return their call: N/A documented in this [facility]01-31-2024 Emergency department Note* Larry Eugene, DO - 11/17/2023 4:08 PM EST HPI [...] as part of routine gynecological examination Epilepsy ([facility]) GERD (gastroesophageal reflux disease) Immunization not carried [...] ANGIO W AND WO IV CONTRAST 05/09/2022 [facility] CT HEAD ANGIO W AND WO IV CONTRAST 05/09/2022 CT HEAD ANGIO W AND WO IV CONTRAST 05/09/2022 [facility] OTHER SURGICAL HISTORY 01/30/2022 [...] ED Course & MDM Diagnoses as of 11/17/23 1910 Contusion of back, unspecified laterality, initial encounter Fall, initial encounter Medical Decision Making CT cervical spine wo IV contrast Final Result No evidence for an acute fracture or subluxation of the cervical spine. MACRO: None Signed by: Otis Prather 11/17/2023 5:56 PM Dictation workstation: [id number] CT thoracic spine wo IV contrast Final [...] Larry Eugene DO 11/17/231910 documented in this [facility] Work Phone: 1(385) 401-148401-31-2024 Physician Emergency department Note* Larry Eugene DO [...] as part of routine gynecological examination Epilepsy ([facility]) GERD (gastroesophageal reflux disease) Immunization not carried [...] ANGIO W AND WO IV CONTRAST 05/09/2022 [facility] CT HEAD ANGIO W AND WO IV CONTRAST 05/09/2022 CT HEAD ANGIO W AND WO IV CONTRAST 05/09/2022 [facility] OTHER SURGICAL HISTORY 01/30/2022 [...] ED Course & MDM Diagnoses as of 11/17/23 1910 Contusion of back, unspecified laterality, initial encounter Fall, initial encounter Medical Decision Making CT cervical spine wo IV contrast Final Result No evidence for an acute fracture or subluxation of the cervical spine. MACRO: None Signed by: Otis Prather 11/17/2023 5:56 PM Dictation workstation: [id number] CT thoracic spine wo IV contrast Final [...] care. Procedure Procedures Larry Eugene DO 11/17/231910 [facility] Work Phone: 1(400) 991-477101-24-2024 History of Present illness Narrative* Valentina Munoz [...] as part of routine gynecological examination Epilepsy ([facility]) GERD (gastroesophageal reflux disease) Immunization not carried [...] ANGIO W AND WO IV CONTRAST 05/09/2022 [facility] CT HEAD ANGIO W AND WO IV CONTRAST 05/09/2022 CT HEAD ANGIO W AND WO IV CONTRAST 05/09/2022 [facility] OTHER SURGICAL HISTORY 01/30/2022 [...] Last Dose Status acetaminophen 500 mg capsule [id number] No Take 1 capsule (500 mg) by mouth every 6 hours if needed. Barbara Chamberlain MD Unknown Active albuterol 90 mcg/actuation inhaler [id number] No Inhale 2 puffs every 6 hours if needed. Barbara Chamberlain MD Past Month Active allopurinol (Zyloprim) 300 mg tablet [id number] No Take 1 tablet (300 mg) by mouth once daily. Barbara Chamberlain MD 10/13/2023 Active amLODIPine (Norvasc) 10 mg tablet [id number] No Take 1 tablet (10 mg) by mouth once daily. MD Jose Unknown Active atorvastatin (Lipitor) 20 mg tablet [id number] No Take 1 tablet (20 mg) by mouth once daily at bedtime. Barbara Chamberlain MD Unknown Active benzonatate (Tessalon) 200 mg capsule [id number] No Take 1 capsule (200 mg) by mouth if needed for cough. Do not crush or chew. Barbara Chamberlain MD Unknown Active busPIRone (Buspar) 10 mg tablet [id number] No Take 1 tablet (10 mg) by mouth 3 times a day as needed.Barbara Chamberlain MD Unknown Active calcium carbonate (Tums) 200 mg calcium chewable tablet [id number] No Chew 1 tablet (500 mg) once daily. Barbara Chamberlain MD Unknown Active calcium carbonate-vitamin D3 600 mg-10 mcg (400 unit) tablet [id number] No Take 1 tablet by mouth 2 times a day. Barbara Chamberlain MD Unknown Active carbamide peroxide (Debrox) 6.5 % otic solution [id number] No Administer into affected ear(s). USE ASDIRECTED Barbara Chamberlain MD Not Taking Active carboxymethylcellulose PF 1 % ophthalmic solution [id number] No Administer 2 drops into both eyes if needed. Q1HR Barbara Chamberlain MD Unknown Active cholecalciferol (Vitamin D-3) 1,250 mcg (50,000 unit) capsule [id number] No Take 1 capsule (50,000 Units) by mouth once a week. Barbara Chamberlain MD Unknown Active clotrimazole-betamethasone (Lotrisone) cream [id number] No Apply 1 Application topically twice a day.Barbara Chamberlain MD Unknown Active cyanocobalamin, vitamin B-12, (Vitamin B-12) 1,000 mcg tablet extended release [id number] No Take 1 tablet (1,000 mcg) by mouth once daily. Barbara Chamberlain MD Unknown Active diclofenac sodium 1 % kit [id number] No Apply 1 Application topically in the morning and 1 Application before bedtime. Barbara Chamberlain MD Unknown Active divalproex (Depakote ER) 500 mg 24 hr tablet [id number] No Take 1 tablet (500 mg) by mouth once dailyat bedtime. Barbara Chamberlain MD Unknown Active divalproex (Depakote) 250 mg EC tablet [id number] No Take 1 tablet (250 mg) by mouth once daily in the morning. Barbara Chamberlain MD 10/14/2023 Active famotidine (Pepcid) 20 mg tablet [id number] No Take 1 tablet (20 mg) by mouth once daily. Barbara Chamberlain MD Unknown Active guaiFENesin (Humibid 3) 400 mg tablet [id number] No Take 1 tablet (400 mg) by mouth every 6 hours if needed for cough. Barbara Chamberlain MD Unknown Active ibuprofen 600 mg tablet [id number] Take 1.5 tablets (900 mg) by mouth every 8 hours if needed for moderate pain (4 - 6) for up to 30 doses. Matthew Pérez MD Active levETIRAcetam (Keppra) 500 mg tablet [id number] No Take 1 tablet (500 mg) by mouth 2 times a day. Barbara Chamberlain MD 10/14/2023 Active levonorgestrel (Mirena) 21 mcg/24 hours (8 yrs) 52 mg IUD [id number] Matthew Pérez MD Active levothyroxine (Synthroid, Levoxyl) 25 mcg tablet [id number] No Take 1 tablet (25 mcg) by mouth once daily. Barbara Chamberlain MD Unknown Active lisinopril 20 mg tablet [id number] No Take 1 tablet (20 mg) by mouth 2 times a day. Barbara Chamberlain MD Unknown Active loratadine (Claritin) 10 mg tablet [id number] No Take 1 tablet (10 mg) by mouth. Before meals Barbara Chamberlain MD Taking Active Discontinued 11/08/23 1043 LORazepam (Ativan) 1 mg tablet [id number] Take 2 tablet twice daily and 1 tab daily PRN Jeanie Ayala MD Active magnesium oxide (Mag-Ox) 400 mg tablet [id number] No Take 1 tablet (400 mg) by mouth once daily. Barbara Chamberlain MD Unknown Active meclizine (Antivert) 25 mg tablet [id number] No Take 1-2 tablets (25-50 mg) by mouth 3 times a day asneeded (otitis media). Barbara Chamberlain MD Taking Active melatonin 5 mg tablet [id number] No Take 1 tablet (5 mg) by mouth once daily at bedtime. Barbara Chamberlain MD Not Taking Active methyl salicylate-menthol (Icy Hot) 29-7.6 % ointment ointment [id number] No Apply 1 Application topically every 12 hours if needed. Barbara Chamberlain MD Taking Active metoprolol tartrate (Lopressor) 25 mg tablet [id number] No Take 1 tablet (25 mg) by mouth 2 times a day. Jeanie Ayala MD Unknown Active omeprazole (PriLOSEC) [address] capsule [id number] No Take 1 capsule (20 mg) by mouth once daily. Barbara Chamberlain MD Unknown Active potassium chloride ER (Micro-K) 10 mEq ER capsule [id number] No Take 2 capsules (20 mEq) by mouth twice a day. Barbara Chamberlain MD Unknown Active primidone (Mysoline) 50 mg tablet [id number] No Take 2 tablets (100 mg) by mouth 2 times a day. Barbara Chamberlain MD Unknown Active sennosides-docusate sodium (Lani-Colace) 8.6-50 mg tablet [id number] No Take 2 tablets by mouth once daily as needed for constipation. Barbara Chamberlain MD Unknown Active sertraline (Zoloft) 100 mg tablet [id number] No Take 1 tablet (100 mg) by [...] as well as the bladder, recommend referring herto minimally invasive territory service representative in [place] for surgery. documented in this [facility] Work Phone: 1(474) 190-688501-22-2024 History of Present illness Narrative* Jeanie Ayala [...] 1 MO MED REFILL documented in this [facility] Work Phone: 1(495) 961-217401-12-2024 History of Present illness Narrative* Matthew Pérez [...] COMPLETIONIS NO LONGER AVAILABLE. documented in this [facility] Work Phone: 1(169) 602-828201-08-2024 History of Present illness Narrative* Mejia Cullen MD - 10/25/2023 10:30 AM EST Images from the original note were not included. [facility] [address] [place] [id number] Dept: [phone] Dept Loc: [phone] [facility] Consultation for Reema Shah : 1975 Today's Date: 10/25/2023 PCP: Jeanie Ayala Patient was seen accompanied by living facility staff. Patient gave permission to discuss medical information with facility staff present. Referral Source: Vijayradha Reema Shah is a 48 y.o. female [...] Has powerchair. Lives in assisted living facility ([facility]). Moving to [facility] next month. Workup: CT Brain, CT [...] Holter Monitor and Nuclear Stress Test at [facility] 10/05/23 for pre-op testing were negative. CT Head 09/16/23 (report only, [facility]) The ventricles, cisterns and sulci are [...] clear. CT C spine 08/25/23 (report only, [facility]) Cervical spine: Alignment: Stable alignment. Cranial [...] Physical Medicine and Rehabilitation documented in this [facility]01-08-2024 History of Present illness Narrative* Mejia Cullen MD - 10/25/2023 10:30 AM EST Images from the original note were not included. [facility] [address] [place] [id number] Dept: [phone] Dept Loc: [phone] [facility] Consultation for Reema Shah : 1975 Today's Date: 10/25/2023 PCP: Jeanie Ayala Patient was seen accompanied by living facility staff. Patient gave permission to discuss medical information with facility staff present. Referral Source: Vijayradha Reema Shah is a 48 y.o. female [...] Has powerchair. Lives in assisted living facility ([facility]). Moving to [facility] next month. Workup: CT Brain, CT [...] Holter Monitor and Nuclear Stress Test at [facility] 10/05/23 for pre-op testing were negative. CT Head 09/16/23 (report only, [facility]) The ventricles, cisterns and sulci are [...] clear. CT C spine 08/25/23 (report only, [facility]) Cervical spine: Alignment: Stable alignment. Cranial [...] Physical Medicine and Rehabilitation documented in this [facility]01-08-2024 Miscellaneous Notes* Addendum Note - Mejia Cullen MD - 10/25/2023 10:30 AM ESTAddended by: MEJIA CULLEN on: 11/02/2023 02:57 PM Modules accepted: Orders documented in this [facility]01-08-2024 Note* Addendum Note - Mejia Cullen MD - 10/25/2023 10:30 AM ESTAddended by: MEJIA CULLEN on: 11/02/2023 02:57 PM Modules accepted: Orders [id number] Emergency department Note* Lit Ledezma MD - 10/02/2023 1:06 AM EST Patient is a 48-year-old female who is a permanent resident of the [facility]. She presents with a chief complaint [...] thinners. She can be returned to the [facility]. Diagnoses as of 10/02/23130 Fall, initial encounter Lit Ledezma MD 10/02/23130 [facility] Work Phone: 1(611) 237-872212-16-2023 Physician Emergency department Note* Lit Ledezma MD - 10/02/2023 1:06 AM EST Patient is a 48-year-old female who is a permanent resident of the [facility] in [facility]. She presents with a chief complaint of [...] thinners. She can be returned to the [facility]. Diagnoses as of 10/02/23130 Fall, initial encounter Lit Ledezma MD 10/02/23130 [facility] Work Phone: 1(117) 667-110712-05-2023 History of Present illness Narrative* Everett Haywood [...] ANGIO W AND WO IV CONTRAST 05/09/2022 [facility] CT HEAD ANGIO W AND WO IV CONTRAST 05/09/2022 CT HEAD ANGIO W AND WO IV CONTRAST 05/09/2022 [facility] OTHER SURGICAL HISTORY 01/30/2022 [...] performed using a different testing methodology at [facility] than at other [facility]. Direct result comparisons should only [...] performed using a different testing methodology at [facility] than at other [facility]. Direct result comparisons should only [...] performed using a different testing methodology at [facility] than at other [facility]. Direct result comparisons should only [...] is performed using different testing methodology at [facility] than at other [facility]. Direct result comparisons should only [...] is performed using different testing methodology at [facility] than at other [facility]. Direct result comparisons should only be [...] 13-18 <7.5 7-12 <8.0 0- 6 7.5-8.5 [employer]. Diabetes Care 33(S1), Oct 2009. 08/05/2021 08:50 AM 5.2 % Final Comment: Diagnosis of Diabetes-Adults Non-Diabetic: < or = 5.6% Increased risk for developing diabetes: 5.7-6.4% Diagnostic of diabetes: > or = 6.5% . Monitoring of Diabetes Age (y) Therapeutic Goal (%) Adults: >18 <7.0 Pediatrics: 13-18 <7.5 7-12 <8.0 0- 6 7.5-8.5 [place] [employer]. Diabetes Care 33(S1), Oct 2009. [...] We are requesting nuclear stress test and monitor technician. If nuclear stress test is negative for ischemia, then the patient can undergo the procedure with low risk of cardiovascular complications. Ideally patient should remain on anti-hypertensive medication up to the day of the procedure. This note was transcribed using the [employer] Dictation system. There may be grammatical, punctuation,or verbiage errors that occur with voice recognition programs. Counseling greater than 50% of visit regarding all cardiac issues. Thank you, Dr. Ayala and Dr. Pérez, for allowing me to participate in the care of this patient. Please do not hesitate to contact me with any further questions or concerns. Everett Haywood MD Cardiology documented in this [facility] Work Phone: 1(826) 376-369011-30-2023 Emergency department Note* Dimas Lin MD - 09/16/2023 9:09 AM EST Chief Complaint: FALL This is a 48-year-old female who is a full-time halfway resident. Apparently she was getting out of [...] is awake and coherent she has a [place] Coma Scale 15 HENT: Head: Normocephalic. Comments: [...] Ky Ackerman 09/16/2023 10:19 AM Dictation workstation: [id number] CT head wo IV contrast Final Result No acute intracranial pathology. Signed by: Ky Ackerman 09/16/2023 10:18 AM Dictation workstation: [id number] Procedures Medical Decision Making Armenian diagnoses head contusion skull fracture intracerebral hemorrhage [...] Lin MD 09/16/23 1028 documented in [facility] Work Phone: 1(129) 222-109711-30-2023 Physician Emergency department Note* Dimas Lin MD - 09/16/2023 9:09 AM EST Chief Complaint: FALL This is a 48-year-old female who is a full-time halfway resident. Apparently she was getting out of [...] is awake and coherent she has a [place] Coma Scale 15 HENT: Head: Normocephalic. Comments: [...] Ky Ackerman 09/16/2023 10:19 AM Dictation workstation: [id number] CT head wo IV contrast Final Result No acute intracranial pathology. Signed by: Ky Ackerman 09/16/2023 10:18 AM Dictation workstation: [id number] Procedures Medical Decision Making Armenian diagnoses head contusion skull fracture intracerebral hemorrhage [...] initial encounter Dimas Lin MD 09/16/23 1028 [facility] Work Phone: 1(737) 860-360111-22-2023 History of Present illness Narrative* Jeanie Ayala MD - 09/08/2023 11:15 AM EST Subjective Patient ID: Reema Shah is a 47 y.o. female who presents for Follow-up (6 MONTH F/U - ONLY LABS DONE WERE ORDERED BY SHEET HANGER DR. PÉREZ - PENDING LAPAROSCOPY AND IUD [...] oct Fu in oct documented in this [facility]Un[facility] [place] Work Phone: 1(267) 443-630711-15-2023 Miscellaneous Notes* Result Encounter Note - Matthew Pérez MD - 09/01/2023 8:15 AM EST Reema's EKG came back abnormal so she is going to need to get cardiac clearance as well but in the order documented in this encounterUnSelect [facility] [place] Work Phone: 1(557) 420-747911-15-2023 Progress note* Result Encounter Note - Matthew Pérez MD - 09/01/2023 8:15 AM EST Reema's EKG came back abnormal so she is going to need to get cardiac clearance as well but in the order [facility] Work Phone: 1(321) 926-858811-08-2023 Emergency department Note* Abhi Richards DO - [...] Patient presents to the emergency department by nicho from [facility] secondary to a mechanical fall. The patient [...] History provided by: EMS personnel and patient tongsman used: No No data recorded Patient History [...] ANGIO W AND WO IV CONTRAST 05/09/2022 [facility] CT NECK ANGIO W AND WO IV CONTRAST 05/09/2022 CT NECK ANGIO W AND WO IV CONTRAST 05/09/2022 [facility] OTHER SURGICAL HISTORY 01/30/2022 [...] raise both arms up over her head. E Commerce Strategist strengths are equal. She can flex and [...] ED Course & MDM Diagnoses as of 08/25/234 Fall, initial encounter Medical Decision Making Given that the patient's radiographs are negative, and she has a history of falls, I feel she is appropriate to be discharged home. Reassurance was given. Recommended Tylenol for pain. Follow-up withher private physician and return if worse Procedure Procedures Abhi Richards DO 08/25/23 1335 documented in this [facility] Work Phone: [phone]) 834-866111-08-2023 Physician Emergency department Note* Abhi Richards DO [...] Patient presents to the emergency department by nicho from [facility] secondary to a mechanical fall. The patient [...] History provided by: EMS personnel and patient tongsman used: No No data recorded Patient History [...] ANGIO W AND WO IV CONTRAST 05/09/2022 [facility] CT NECK ANGIO W AND WO IV CONTRAST 05/09/2022 CT NECK ANGIO W AND WO IV CONTRAST 05/09/2022 [facility] OTHER SURGICAL HISTORY 01/30/2022 [...] raise both arms up over her head. E Commerce Strategist strengths are equal. 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 Also when does Dr Chopra want to see her? 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 Also when does Dr Chopra want to see her? Best time of day caller can be reached: AM Patient advised that office/PCP has 24-48 business hours to return their call: Yes documented in this encounterSFort Hamilton [id number] Telephone encounter Note* Telephone Encounter - Laron Curiel LPN - 08/23/2023 9:30 AM EST Call to Ana. Ana notified of medication change on patient's Depakote. [...] to amdose of Depakote. FYI to provider. [facility] [id number] Miscellaneous Notes* Telephone Encounter - Laron Curiel LPN - 08/23/2023 9:30 AM EST Call to Ana. Ana notified of medication change on patient's Depakote. [...] Name of caller: Ana Contact phone number: [phone] Relationship to Patient: [place] Provider: Dr Chopra Practice: [facility] [place] Chief Complaint/Reason for Call: Ana states she [...] - 08/20/2023 2:26 PM EDT Call to [facility]. Spoke with Ana. Ana faxed form to office. Form is in providers basket. * Telephone Encounter - Latesha Krause MA - 08/20/2023 1:36 PM EDT Form is being faxed * Telephone Encounter - Valentina Chopra MD - 08/20/2023 1:27 PM EDT That form is lost. Can they re-fax it * Telephone Encounter - Haseeb Tom - 08/20/2023 11:[address] [facility] is calling to check on the status of the request. * Telephone Encounter - Latesha Krause MA - 08/19/2023 2:34 PM EDT Form is on providers desk * Telephone Encounter - Rachel Birmingham - 08/19/2023 2:27 PM EDT Name of caller: Ana Contact phone number: [phone] Relationship to Patient: [place] Provider: Dr. Chopra Practice: Neurology Chief Complaint/Reason for Call: Ana states that she is not abl to read the order sheet that Dr. Chopra sent with Reema today. She is faxing the order over and is asking for clarification on number 6 on the sheet. Please call Ana and advise. Best time of day caller can be reached: Any Patient advised that office/PCP has 24-48 business hours to return their call: No documented in this [facility]11-06-2023 Telephone encounter Note* Telephone Encounter - Mathew Pearson - 08/23/2023 9:21 AM EST Name of caller: Ana Contact phone number: [phone] Relationship to Patient: [place] Provider: Dr Chopra Practice: [facility] [place] Chief Complaint/Reason for Call: Ana states she would like to speak to the office directly regarding pt's medication. Please advise. Best time of day caller can be reached: any Patient advised that office/PCP has 24-48 business hours to return their call: N/A [place] [address]-06-2023 Telephone encounter Note* Telephone Encounter - Latesha Krause MA - 08/23/2023 8:49 AM EST Lm for Ana to call the office back, please relay providers message. [place] [address]-06-2023 Telephone encounter Note* Telephone Encounter - Valentina [...] [facility]. Please get those appointments scheduled [place] [id number] Telephone encounter Note* Telephone Encounter - Laron Curiel LPN - 08/20/2023 2:26 PM EDT Call to [facility]. Spoke with Ana. Ana faxed form to office. Form is in providers basket. [place] [id number] Telephone encounter Note* Telephone Encounter - Latesha Krause MA - 08/20/2023 1:36 PM EDT Form is being faxed [place] [id number] Telephone encounter Note* Telephone Encounter - Valentina Chopra MD - 08/20/2023 1:27 PM EDT That form is lost. Can they re-fax it [place] [id number] Telephone encounter Note* Telephone Encounter - Haseeb Tom - 08/20/2023 11:[address] [facility] is calling to check on the status of the request. [place] [id number] Telephone encounter Note* Telephone Encounter - Latesha Krause MA - 08/19/2023 2:34 PM EDT Form is on providers desk [place] [id number] Telephone encounter Note* Telephone Encounter - Rachel Birmingham - 08/19/2023 2:27 PM EDT Name of caller: Ana Contact phone number: [phone] Relationship to Patient: [place] Provider: Dr. Chopra Practice: Neurology Chief Complaint/Reason for Call: Ana states that she is not abl to read the order sheet that Dr. Chopra sent with Reema today. She is faxing the order over and is asking for clarification on number 6 on the sheet. Please call Ana and advise. Best time of day caller can be reached: Any Patient advised that office/PCP has 24-48 business hours to return their call: No [facility] [id number] History of Present illness Narrative* Valentina Chopra MD - 08/19/2023 10:30 AM EDT Images from the original note were not included. [facility] [address] [place] [address] [facility] [address] Dept: [phone] Dept Loc: [phone] Valentina Chopra MD Thank you for your [...] history of Anxiety, Chronic kidney disease, Epilepsy ([facility]), Essential hypertension, Gastro-esophageal reflux disease without esophagitis, Hypokalemia, Hypothyroidism, Obesity, Personal history of urinary (tract) infections, Psoriasis, Repeated falls, and Thrombocytopenia ([facility]). Past Surgical History: has a past surgical [...] Rfl: Filled Written Sold ID Drug QTY Prescriber RX # Dispenser Refill Daily Dose* Pymt Type [facility] 08/01/2023 07/13/2023 1 Lorazepam 1 Mg Tablet 150.00 30 Me Tav [id number] Par (1165) 0 5.00 LME [place] 07/30/2023 07/13/2023 1 Lorazepam 1 Mg Tablet 150.00 30 Me Tav [id number] Par (1165) 0 5.00 [place] 07/06/2023 07/06/2023 1 Lorazepam 1 Mg Tablet 120.00 30 Me Tav [id number] Par (1165) 0 4.00 [place] 06/15/2023 06/07/2023 1 Lorazepam 1 Mg Tablet 105.00 21 Me Tav [id number] Par (1165) 2 5.00 [place] 06/07/2023 06/07/2023 1 Lorazepam 1 Mg Tablet 45.00 7 Me Tav [id number] Par (1165) 0 6.43 [place] 05/13/2023 05/04/2023 1 Lorazepam 1 Mg Tablet 120.00 24 Me Tav [id number] Par (1165) 4 5.00 [place] 05/07/2023 05/04/2023 1 Lorazepam 1 Mg Tablet 30.00 6 Me Tav [id number] Par (1165) 0 5.00 [place] 05/01/2023 04/14/2023 1 Lorazepam 1 Mg Tablet 28.00 7 Me Tav [id number] Par (1165) 3 4.00 [place] 04/24/2023 04/14/2023 1 Lorazepam 1 Mg Tablet 28.00 7 Me Tav 163795 Par (1165) 2 4.00 [place] 04/18/2023 04/14/2023 1 Lorazepam 1 Mg Tablet 28.00 7 Me Tav 895818 Par (1165) 1 4.00 [place] 04/14/2023 04/14/2023 1 Lorazepam 1 Mg Tablet 28.00 7 Me Tav 765947 Par (1165) 0 4.00 [place] 04/05/2023 03/31/2023 1 Lorazepam 1 Mg Tablet 30.00 6 Me Tav 578711 Par (1165) 1 5.00 [place] 03/31/2023 03/31/2023 1 Lorazepam 1 Mg Tablet 30.00 6 Me Tav 449021 Par (1165) 0 5.00 [place] 03/22/2023 12/15/2022 1 Lorazepam 1 Mg Tablet 30.00 6 Me Tav 754226 Par (1165) 14 5.00 [place] 03/15/2023 12/15/2022 1 Lorazepam 1 Mg Tablet 30.00 6 Me Tav 909227 Par (1165) 13 5.00 [place] Allergies: [...] of the exam. Component 5 yr ago Whizzer Operator EXAMINATION: [place] I-123 BRAIN SPECT DOPAMINE TRANSPORTER [...] EDT Aleksey Bhardwaj MD 03/16/2019 4:19 PM [facility] EEG Report Reason for EEG: [...] CT Brain, 15 May 2021 ACCESSION NUMBER(S): [id number] ORDERING CLINICIAN: LARRY EUGENE TECHNIQUE: CT of [...] (Age 19-64y); fall w/ [facility], [facility] Injury/Trauma or Illness?:Injury/Trauma How long have you had these symptoms (acute/chronic)?:Acute Reason for exam?:trauma Type of Exam?:Initial COMPARISON: CT brain from [place] of 12/01/2020. TECHNIQUE: Noncontrast CT of the [...] suspicious change from 12/01/2020 CT brain at [place]. Nini Garcia MD - 12/22/2022 Patient Name: REEMA SHAH STUDY: CT HEAD WO CONTRAST; 08/24/2022 7:43 am INDICATION: fall, history of thrombocytopenia, abrasion L parietal scalp . COMPARISON: 05/09/2022 ACCESSION NUMBER(S): [id number] ORDERING CLINICIAN: ANDRES HUSSEIN TECHNIQUE: Unenhanced CT [...] head injury . COMPARISON: 11/26/2022 ACCESSION NUMBER(S): [id number] ORDERING CLINICIAN: LARRY EUGENE TECHNIQUE: Noncontrast axial [...] head injury . COMPARISON: None. ACCESSION NUMBER(S): [id number] ORDERING CLINICIAN: LARRY EUGENE TECHNIQUE: Axial CT [...] unspecified COMPARISON: CT head 01/21/2023 ACCESSION NUMBER(S): [id number] ORDERING CLINICIAN: CAREN GILMAN TECHNIQUE: Noncontrast CT [...] TSH VITAMIN B12: No results found for: [id number] FERRITIN: No results found for: FERRITIN ---- No results found for: PHENYTOIN, PHENOBARB, VALPROATE, CBMZ No components found for: TOPIRANo results found for: OXCARBAZE, OXCARB @LASTAPPOINTMENTTHISPROV@ No image results found. @RESULTINGLABINFO@ No results found for: LEVETIRACETA, FERRITIN, CRP, CHARLY, ANCA No results found for: KENNY, IMMUNOGLOBUL, OLIGOBANDS No results found for: NXG85FA, HEPCAB No results found for: CRP, ANATITER, [...] she see our epilepsy team here at [facility] to try to find a better control [...] her to see Dr. Faith at the [facility] for assistance. I spent 60 minutes caring for this patient today, reviewing labs and records, seeing the patient, documenting in the record and arranging for studies. documented in this [facility]11-02-2023 Miscellaneous Notes* Addendum Note - Valentina Chopra MD - 08/19/2023 10:30 AM EDTAddended by: VALENTINA CHOPRA on: 08/19/2023 11:26 AM Modules accepted: Orders documented in this [facility]11-02-2023 Note* Addendum Note - Valentina Chopra MD - 08/19/2023 10:30 AM EDTAddended by: VALENTINA CHOPRA on: 08/19/2023 11:26 AM Modules accepted: Orders [facility] [id number] History of Present illness Narrative* Matthew Pérez [...] and a chest x-ray documented in this encounterUnSelect [facility] [place] Work Phone: 1([phone]) 953-974410-27-2023 Emergency department Note* Carmelina Brennan RN - 08/13/2023 7:12 AM EDT [facility]. Pt has chronic hypertension took medication this AM documented in this encounterUnSelect [facility] [place] Work Phone: [phone] 428-127210-27-2023 Emergency department Triage note* Carmelina Brennan RN - 08/13/2023 7:12 AM EDT [facility]. Pt has chronic hypertension took medication this AM [facility] Work Phone: [phone]) 222-533510-07-2023 Emergency department Note* Caren Gilman DO - 07/24/2023 10:58 PM EDT 47-year-old female presents from the [facility] after she slipped in the bathroom and [...] Caren Avina DO 07/25/2333 documented [facility] Work Phone: [phone]) 326-216910-07-2023 Physician Emergency department Note* Caren Gilman DO - 07/24/2023 10:58 PM EDT 47-year-old female presents from the [facility] after she slipped in the bathroom and [...] Visit None DO Caren Avina DO 07/25/2333 [facility] Work Phone: 1([phone]) 415-325609-26-2023 History of Present illness Narrative* Jeanie Ayala [...] period since her IUD removed by her SHEET HANGER Review of Systems Constitutional: Negative. Negative for [...] 13-18 <7.5 7-12 <8.0 0- 6 7.5-8.5 [place] [employer]. Diabetes Care 33(S1), Oct 2009. Assessment/Plan Problem List Items Addressed This Visit Anxiety Relevant Medications LORazepam (Ativan) 1 mg tablet Hypertension Other Visit Diagnoses Vagina bleeding - Primary Dysuria Relevant Orders POCT UA Automated manually resulted (Completed) To see her own christmas tree grader,pt agreed OARRS HAS BEEN REVIEWED AND IS [...] . Fu 1 mo documented in this [facility] Work Phone: 1(735) 447-635207-25-2023 History of Present illness NarrativeAgree with CC as noted, Elle is a pleasant 47-year-old female arrived in wheelchair from [facility] for follow-up of right knee pain. Sometimes [...] back pain and T-spine fracture November 2021. [facility] Work Phone: 1([phone]) 508-751807-18-2023 History of Present illness Narrative* Jeanie Ayala [...] 13-18 <7.5 7-12 <8.0 0- 6 7.5-8.5 [place] [employer]. Diabetes Care 33(S1), Oct 2009. [...] Fu 1 mo bw documented in this [facility] Work Phone: 1(239) 356-209205-11-2023 History of Present illness Narrative* Jeanie Ayala [...] 13-18 <7.5 7-12 <8.0 0- 6 7.5-8.5 [place] [employer]. Diabetes Care 33(S1), Oct 2009. [...] in office 1 week documented in this [facility] Hospital Work Phone: 1([phone]) 667-710305-10-2023 History of Present illness Narrative* She is here for follow-up secondary to chronic kidney disease with a baseline creatinine of 1.1-1.4, history of hypertension with some recent hypotension * At her last visit we stopped her vitamin D lisinopril doxazosin and ergocalciferol * We also stopped her PPI * She has been having her blood pressure checked at the [facility] * Her blood pressure is ranging on [...] fingertips and also chest pain at tiems * Pain is pretty much everywhere. * Wasin ER with a BP of 258/1502 but in ER was 168/90. * No other issues noted. [facility] 3 DO Work Phone: 1([phone]) 793-902704-06-2023 History of Present illness Narrative* She is [...] polypharmacy * She currently resides at the [facility] * She has knownshe has kidneyfailure since sshe was 25 y/o. * Does not take NSAIDs * [facility] and [facility] Mohinder 3 DO Work Phone: 1(136) 431-854903-31-2023 History of Present illness NarrativeAgree with CC as noted, Elle is a pleasant 47-year-old female arrived in wheelchair from [facility] for follow-up of right knee [...] back pain and T-spine fracture November 2021. [facility] Work Phone: 1([phone]) 123-761303-28-2023 History of Present illness Narrative* Sammie Iglesias MD - 01/12/2023 11:15 AM EDT Subjective Patient ID: Reema Shah is a 47 y.o. female who presents for Follow-up (VIRTUAL [phone](NURSE WITH [facility]) - F/U ER DX [...] congestion Otalgia of both ears Relevant Medications tphnhoaj-ffjyoezmf-YZ (Cortisporin) otic solution Acute cystitis with hematuria TEST RESULTS WERE DISCUSSED. ADVISED TO FINISH THE COURSE OF MACROBID. OFFERED A COURSE OF PO PREDNISONE TX, PT REFUSED. ADVISED TO USE THE ALBUTEROL MDI WI FOR COUGH. PT. WAS INSTRUCTED TO INCREASE [...] FOR F/U ON COUGH. documented in this encounterUnSelect [facility] [place] Work Phone: 1([phone]) 377-171603-28-2023 Instructions* Patient Instructions* Sammie Iglesias MD - 01/12/2023 11:15 AM EDT 3 WEEKS IN PERSON FOR F/U ON COUGH. documented in this encounterM[facility] Hospital Work Phone: 1([phone]) [phone] History of Present illness NarrativeAgree with CC [...] low back pain and T-spine fracture November 2021.[facility] [address] Work Phone: 1(681) 780-442602-15-2023 NoteMessage REEMA MARTHENRY canceled today . Patient cancelled initial evaluation this date d/t illness. Signatures Electronically signed by : Trice Tejada, PT; Dec 02 2022 12:28PM EST (Author) [id number] Chief complaint Narrative - Reported* An interactive audio and video telecommunication system which permits real time communications between the patient (at the originating site) and provider (at the distant site) was utilized to providethis telehealth service. * Verbal consent was requested and obtained from REEMA PABLO on this date, 11/23/2022 03:15 PM ,for a telehealth visit. * PT CO SINUS CONGESTION SOME COUGH DENIES FEVER AND SORE THROAT THIS HAS BEEN ONGOING FOR 2 WKS SHE HAS NOT BEEN TESTED FOR COVID [facility] Work Phone: 1([phone]) 998-498801-27-2023 History of Present illness Narrative* 47-year-old lady [...] orthopnea/PND/lower extremity edema. Denies any syncopal episode [facility] Work Phone: 1(299) 402-258001-20-2023 History of Present illness NarrativeReema is a 47-year-old who reports a history [...] that was not further pursued for unclear reasons.[place] [employer] Work Phone: 1(804) 844-838412-01-2022 History of Present illness NarrativeReema is a 47-year-old woman who comes in [...] IUD was put in to help with endometriosisWtahoe pacific hospitalsMakoondiWilbarger [facility] Work Phone: 1([phone]) 668-537811-30-2022 History of Present illness NarrativeAgree with CC as noted. Sophia is a pleasant 47-year-old female accompanied by [...] [facility] because she believes this provides better relief.[facility] [address] Work Phone: [phone]) [phone] History of Present illness NarrativeReema is a pleasant 47-year-old female that arrives from assisted living for recheck of bilateralknee pain. Patient states [...] in the packet from assisted living provided today.[facility] [address] Work Phone: [phone]) 937-387911-01-2022 History of Present illness NarrativeAgree with CC [...] aide from her assisted living for today's visit.[facility] 300 Work Phone: [phone]) [phone] History of Present illness Narrative* 47-year-old lady [...] orthopnea/PND/lower extremity edema. Denies any syncopal episode [facility] Work Phone: [phone]) [phone] History of Present illness Narrative* 47-year-old lady [...] orthopnea/PND/lower extremity edema. Denies any syncopal episode [address] Work Phone: [phone] Chief complaint Narrative - Reported* An interactive audio and video telecommunication system which permits real time communications between the patient (at the originating site) and provider (at the distant site) was utilized to providethis telehealth service. * Verbal consent was requested and obtained from REEMA SHAH on this date, 12/03/2021 03:45 PM ,for a telehealth visit. * MEDICATION REFILL ATIVAN [facility] Work Phone: [phone]) 221-210602-16-2022 Chief complaint Narrative - Reported* An interactive audio and video telecommunication system which permits real time communications between the patient (at the originating site) and provider (at the distant site) was utilized to providethis telehealth service. * Verbal consent was requested and obtained from REEMA SHAH on this date, 12/03/2021 03:45 PM ,for a telehealth visit. * MEDICATION REFILL ATIVAN [facility] Work Phone: [phone] Chief complaint Narrative - Reported* An interactive [...] B/L SHOULDER, AND NECK PAIN. [facility] Work Phone: [phone]) 336-830101-18-2022 Chief complaint Narrative - Reported* An interactive [...] B/L SHOULDER, AND NECK PAIN. [facility] Work Phone: [phone] History of Present illness NarrativePatient is a [...] broke her nose. Patient has no concerns today[address] Work Phone: [phone] History of Present illness Narrative* Patient presents today as Dr Ayala patient, resident at [facility].... * 1 follow up ER x [...] neuro in sometime. She was following with [facility] [place] and she had been filling up until sep 2020. [facility] through March 2021 and so this med [...] work up don t years ago in [place] but Les not see anything recently. she states she has been told to take tylenol for pain but this does not offer relief -[facility] Work Phone: [phone] History of Present illness Narrative* Ania Jordan MA - 03/27/2019 3:06 PM EDT Thank you for the update. * Jemma Figueroa RN - 03/27/2019 12:01 PM EDT Pt. returned CASSANDRA follow up message. Evaluated at [facility] on 03/18/19 after falling and hitting back of her head, denies loss of consciousness. Describes falling every two steps. C/o shaking I'm almost going into a seizure. At discharge from ED, ED MD contacted Neurology. Pt. returned to [id number] mg po TID. Has not restarted Trokendi. Neuro attempting to complete preauth. on 03/17/19. Pt updated samples available from Neurologist on 03/17/19. Pt. initially did not remember sample availability - then described no transportation. Currently at [facility] room 120 bed #2. Plans to stay in SNF and transfer to Assisted livingat [facility] after 30 day rehab for ambulation and balance. Phone [facility] , Left message with Nohemi Ch D/c inventory planner. Phoned Dr. Patino, Neurology, faced most recent SED visit plan and pt. Living arrangements - rehab. documented in this [id number] History of Present illness Narrative* F/U AFTER TEST * C/O LUQ PAIN, HAD A RING 5-6 YEARS AGO FOR GERD IN [place], STILL GET FREQUENT HEART CHEEMA * RUQ pain resolved [facility] Work Phone: [phone] History of Present illness Narrative* F/U AFTER TEST * C/O LUQ PAIN, HAD A RING 5-6 YEARS AGO FOR GERD IN [place], STILL GET FREQUENT HEART CHEEMA * RUQ pain resolved [facility] Work Phone: [phone] History of Present illness NarrativeF/U AFTER ER VISIT FOR FALL . HAD CT OF HEAD AND FACIAL BONES DONE WITH XR OF L KNEE AND WAS DX WITH NASAL FRACTURE. HAS DIZZINESS ON AND OFF , LASTING SEVERAL HOURS. B/L EAR PAIN 2-3/10.[facility] Work Phone: chief complaint Narrative - Reported1 MO MED RF PT CO B/L EAR PAIN TODAY AND NEEDS [facility] Work Phone: chief complaint Narrative - ReportedFollow-up) re- evaluation of [...] accompanied by an aid, Basim, for the visit.[facility] 300 Work Phone: chiue complaint Narrative - ReportedPT HERE FOR 1 MO F/U. PT WOULD [facility] Work Phone: Evaluation note* Diagnosis Fracture of bone of nasal sinus (HCC)- Primary [facility] Diagnosis Migraine without status migrainosus, not intractable, unspecified migraine type- Primary [facility]* Diagnosis Primary hypertension- Primary Unspecified essential hypertension Sedative, hypnotic or anxiolytic dependence with withdrawal, unspecified (CMS/HCC) Depression, major, single episode, severe (CMS/HCC) Impacted cerumen of right ear Impacted cerumen documented in this encounter [facility] Work Phone: Evaluation note* Diagnosis Anxiety Anxiety state, unspecified documented in this encounter [facility] Work Phone: Evaluation note* Diagnosis Vagina bleeding- Primary Other specified noninflammatory disorder of vagina Dysuria Anxiety Anxiety state, unspecified Primary hypertension Unspecified essential hypertension documented in this encounter [facility] Work Phone: Evaluation note* Diagnosis Anxiety- Primary Anxiety state, unspecified Fall, initial encounter documented in this encounter [facility] Work Phone: Evaluation note* Diagnosis Chronic systolic (congestive) heart failure (CMS/HCC)- Primary Anxiety Anxiety state, unspecified Depression, major, single episode, severe (CMS/HCC) Generalized epilepsy (CMS/HCC) Unspecified epilepsy without mention of intractable epilepsy Sedative, hypnotic or anxiolytic dependence with withdrawal, unspecified (CMS/HCC) Stage 3a chronic kidney disease (CMS/HCC) Fatty liver Other chronic nonalcoholic liver disease Thrombocytopenia (CMS/HCC) Unspecified thrombocytopenia documented in this encounter [facility] Work Phone: Evaluation note* Diagnosis Primary hypertension- Primary Unspecified essential hypertension Renal insufficiency Unspecified disorder of kidney and ureter documented in this encounter [facility] Work Phone: Evaluation note* Diagnosis Pre-op exam- Primary Menorrhagia with irregular cycle Screen for STD (sexually transmitted disease) Screening examination for venereal disease Pelvic pain documented in this encounter [facility] Work Phone: Evaluation note* Diagnosis 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)- Primary Tremor Abnormal involuntary movements Frequent falls [facility] Diagnosis Pelvic pain Irregular bleeding Irregular menstrual cycle Preop testing Unspecified pre-operative examination Fall, initial encounter- Primary Pelvic pain Irregular bleeding Irregular menstrual cycle Preop testing Unspecified pre-operative examination documented in this encounter [facility] Work Phone: Evaluation note* Diagnosis Pelvic pain Irregular bleeding Irregular menstrual cycle Preop testing Unspecified pre-operative examination Preop testing Unspecified pre-operative examination Pelvic pain Irregular bleeding Irregular menstrual cycle Preop testing Unspecified pre-operative examination documented in this encounter [facility] Work Phone: Evaluation note* Diagnosis Pelvic pain Irregular bleeding Irregular menstrual cycle Preop testing Unspecified pre-operative examination Preop testing Unspecified pre-operative examination Pelvic pain Irregular bleeding Irregular menstrual cycle Preop testing Unspecified pre-operative examination documented in this encounter [facility] Work Phone: Evaluation note* Diagnosis Pelvic pain Irregular bleeding Irregular menstrual cycle Preop testing Unspecified pre-operative examination Preop testing Unspecified pre-operative examination Pelvic pain Irregular bleeding Irregular menstrual cycle Preop testing Unspecified pre-operative examination documented in this encounter [facility] Work Phone: Evaluation note* Diagnosis Pelvic [...] Unspecified pre-operative examination documented in this encounter [facility] Work Phone: Evaluation note* Diagnosis Pelvic pain Irregular bleeding Irregular menstrual cycle Preop testing Unspecified pre-operative examination Contusion of head, unspecified part of head, initial encounter- Primary Fall, initial encounter Contusion of right elbow, initial encounter Abrasion of right elbow, initial encounter Pelvic pain Irregular bleeding Irregular menstrual cycle Preop testing Unspecified pre-operative examination documented in this encounter [facility] Work Phone: Evaluation note* Diagnosis Pelvic pain Irregular bleeding Irregular menstrual cycle Preop testing Unspecified pre-operative examination Tachycardia- Primary Unspecified tachycardia Preop testing Unspecified pre-operative examination Pelvic pain Irregular bleeding Irregular menstrual cycle Preop testing Unspecified pre-operative examination documented in this encounter [facility] Work Phone: Evaluation note* Diagnosis Pelvic pain Irregular bleeding Irregular menstrual cycle Preop testing Unspecified pre-operative examination Fall, initial encounter- Primary Pelvic pain Irregular bleeding Irregular menstrual cycle Preop testing Unspecified pre-operative examination documented in this encounter [facility] Work Phone: Evaluation note* Diagnosis Pelvic pain Irregular bleeding Irregular menstrual cycle Preop testing Unspecified pre-operative examination Preop testing Unspecified pre-operative examination Tachycardia Unspecified tachycardia Pelvic pain Irregular bleeding Irregular menstrual cycle Preop testing Unspecified pre-operative examination documented in this encounter [facility] Work Phone: Evaluation note* Diagnosis Pelvic pain Irregular bleeding Irregular menstrual cycle Preop testing Unspecified pre-operative examination Preop testing Unspecified pre-operative examination Tachycardia Unspecified tachycardia Preop testing Unspecified pre-operative examination Tachycardia Unspecified tachycardia Preop testing Unspecified pre-operative examination Tachycardia Unspecified tachycardia Pelvic pain Irregular bleeding Irregular menstrual cycle Preop testing Unspecified pre-operative examination documented in this encounter [facility] Work Phone: Evaluation note* Diagnosis Pelvic pain Irregular bleeding Irregular menstrual cycle Preop testing Unspecified pre-operative examination Preop testing Unspecified pre-operative examination Tachycardia Unspecified tachycardia Preop testing Unspecified pre-operative examination Tachycardia Unspecified tachycardia Preop testing Unspecified pre-operative examination Tachycardia Unspecified tachycardia Pelvic pain Irregular bleeding Irregular menstrual cycle Preop testing Unspecified pre-operative examination documented in this encounter [facility] Work Phone: Evaluation note* Diagnosis Chronic midline low back pain without sciatica- Primary Frequent falls Tremor Abnormal involuntary movements [facility] Diagnosis Chronic midline low back pain without sciatica- Primary Frequent falls Tremor Abnormal involuntary movements [facility] Diagnosis Endometriosis- Primary Endometriosis, site unspecified documented in this encounter [facility] Work Phone: Evaluation note* Diagnosis Contusion of back, unspecified laterality, initial encounter- Primary Fall, initial encounter documented in this encounter [facility] Work Phone: Evaluation note* Diagnosis Chest pain- Primary Unspecified chest pain Chest pain, unspecified type [facility] [place] [facility]* Diagnosis Chronic right shoulder pain- Primary Pain in joint, shoulder region [facility] Diagnosis Encounter to establish care- Primary Reserved for inherently not codable concepts WITHOUT codable children [facility] Diagnosis Psoriasis- Primary Other psoriasis Frequent falls Tremor Abnormal involuntary movements Impaired mobility Other ill-defined conditions [facility] Diagnosis Anxiety Anxiety state, unspecified Chronic systolic (congestive) heart failure (CMS/HCC) Depression, major, single episode, severe (CMS/HCC) Seizure-like activity (CMS/HCC) Sedative, hypnotic or anxiolytic dependence with withdrawal, unspecified (CMS/HCC) documented in this encounter [facility] Work Phone: Evaluation note* Diagnosis Morbid obesity with BMI of 40.0-44.9, adult (Multi)- Primary Endometriosis Endometriosis, site unspecified Thrombocytopenia (CMS-HCC) Unspecified thrombocytopenia Chronic systolic (congestive) heart failure (Multi) documented in this encounter [facility] Work Phone: Evaluation note* Diagnosis Seborrheic dermatitis Unspecified seborrheic dermatitis [facility]* Diagnosis Acute appendicitis- Primary Acute appendicitis without mention of peritonitis Acute appendicitis, unspecified acute appendicitis type Thrombocytopenia (HCC) Unspecified thrombocytopenia Elevated serum creatinine Other nonspecific findings on examination of blood History of epilepsy Unspecified epilepsy without mention of intractable epilepsy Constipation, unspecified constipation type S/P laparoscopic appendectomy Other postprocedural status [facility] [place] [facility]* Diagnosis S/P laparoscopic appendectomy- Primary Other postprocedural status documented [facility] this [facility] [place] [facility]* Diagnosis 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) [facility] [place] [facility]* Diagnosis 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)- Primary Tremor Abnormal involuntary movements Frequent falls documented in this encounter [facility] note* Diagnosis Seborrheic dermatitis Unspecified seborrheic dermatitis documented in this encounter [facility] note* Diagnosis Well woman exam (no gynecological exam)- Primary Routine general medical examination at a health care facility Screening mammogram for breast cancer documented in this encounter [facility] Work Phone: Evaluation note* Diagnosis Encounter for screening mammogram for breast cancer documented in this encounter [facility] Work Phone: Evaluation note* Diagnosis COVID-19- Primary Cough in adult Chest congestion Other symptoms involving respiratory system and chest Otalgia of both ears Acute cystitis with hematuria documented in this encounter [facility] Work Phone: Evaluation note* Diagnosis Focal epilepsy with impairment of consciousness, intractable (HCC)- Primary Localization-related (focal) (partial) epilepsy and epileptic syndromes with simple partial seizures, with intractable epilepsy documented in this encounter [facility] note* Diagnosis 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)- Primary Focal epilepsy with impairment of consciousness, intractable (HCC) Localization-related (focal) (partial) epilepsy and epileptic syndromes with simple partial seizures, with intractable epilepsy Tremor Abnormal involuntary movements Dizziness Dizziness and giddiness documented in this encounter [facility] note* Diagnosis Postop check- Primary Follow-up examination, following unspecified surgery documented in this encounter [facility] Work Phone: Evaluation note* Diagnosis Focal epilepsy with impairment of consciousness, intractable (HCC)- Primary Localization-related (focal) (partial) epilepsy and epileptic syndromes with simple partial seizures, with intractable epilepsy 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) [facility] Diagnosis Seizure disorder (CMS/HCC) (HCC)- Primary Unspecified epilepsy without mention of intractable epilepsy Seizure disorder (CMS/HCC) (HCC) Unspecified epilepsy without mention of intractable epilepsy [facility] noteNo assessment information availableWMagruder [facility] Work Phone: History of Present illness Narrative* HERE FOR F/U AFTER D/ FORM CCC * HOSPITAL BED , HAS AN UNSTEADY GAIT, USES WC A LOT * FACE TO FACE FOR HOME CARE * PT FOR GAIT [facility] Work Phone: History of Present illness Narrative* HERE FOR MED REFILL * HAD ABNORMAL VAGINAL DISCHRAGE * HAD LOWER ABDOMINAL PAIN AND BACK PAIN ON THE WEEKEND WHICH RESOLVED, LASTED FOR SHORT PEROID OF TIME FEELS FINE NOW [facility] Work Phone: History of Present illness Narrative* F/U AFTER BW * HAS BEEN MORE ANXIOUS IN AM WANTS LORAZEPAM RAISED [facility] Work Phone: History of Present illness Narrative* F/U AFTER BW * HAS BEEN MORE ANXIOUS IN AM WANTS LORAZEPAM RAISED [facility] Work Phone: History of Present illness Narrative* f/u after labs * HAD 3 FALLS , LOST HER BALANCE AND FELL * ONE TIME WHEN IN BATHROOM HIT HER BACK AND GOT A SMALL BRUISE, NO SZ [facility] Work Phone: History of Present illness Narrative* f/u after labs * HAD 3 FALLS , LOST HER BALANCE AND FELL * ONE TIME WHEN IN BATHROOM HIT HER BACK AND GOT A SMALL BRUISE, NO SZ [facility] Work Phone: History of Present illness Narrative* MED REFILL * C/O TREMOR * HAS DIOMEDES. WITH NEURO NEXT MO [facility] Work Phone: History of Present illness Narrative* MED REFILL * C/O TREMOR * HAS DIOMEDES. WITH NEURO NEXT MO [facility] Work Phone: History of Present illness Narrative* PT C/O EPIGASTRIC AND RUQ PAIN * FOR 3 DAYS * SEVERITY: SEVERE * CHARACTERISTIC: ACUTE * EXACERBATION FACTOR: MOVEMENTS * RELIEVING FACTOR: REST * ASSOCIATED SYMPTOMS: LBP, NAUSEA AND VOMITING * PRIOR TX:BIOFREEZE, TYLENOL [facility] Work Phone: History of Present illness Narrative* PT C/O EPIGASTRIC AND RUQ PAIN * FOR 3 DAYS * SEVERITY: SEVERE * CHARACTERISTIC: ACUTE * EXACERBATION FACTOR: MOVEMENTS * RELIEVING FACTOR: REST * ASSOCIATED SYMPTOMS: LBP, NAUSEA AND VOMITING * PRIOR TX:BIOFREEZE, TYLENOL [facility] Work Phone: History of Present illness Narrative* HERE FOR F/U STILL HAS RUQ PAIN * HAS BEEN MORE ANXIOUS [facility] Work Phone: History of Present illness Narrative* HERE FOR F/U , NO LABS DONE * RIGHT KNEE PAIN * C/O OFF And on nausea and vomiting [facility] Work Phone: History of Present illness Narrative* HERE FOR F/U , NO LABS DONE * RIGHT KNEE PAIN * C/O OFF And on nausea and vomiting [facility] Work Phone: History of Present illness NarrativeHERE FOR MED REFILL[facility] Work Phone: History of Present illness Narrative* HERE FOR MED REFILL * C/O RIGHT KNEE PAIN * WHITE SPOTS ON THE RIGHT LEG * STILL HAS LOTS OF SHAKING WOULD LIKE INCREASE IN LORAZEM WHICH HELPS A LOT [facility] Work Phone: History of Present illness Narrative* HERE FOR MED REFILL * C/O B/L EAR ACHE * C/O RASH ON THE RIGHT ARM PIT WITH SOME ITCH [facility] Work Phone: History of Present illness [...] did use some pain medication in the wogn past, she was unsure of the name of it and currently is not taking any pr escription medicines for pain control. She does use Tylenol on a as needed basis and helps for veryshort-term intervals. Patient is mostly wheelchair-bound and can ambulate approximately 10 feet with a walker to the restroom several times daily and this is when most of the falls occur.[facility] [address] Work Phone: History of Present illness Narrative* HERE FOR MED REFILL * C/O BACK PAIN * C/O B/L KNEE PAIN, HER VOLTAREN GEL WAS EFFECTIVE BUT STOPPED [facility] Work Phone: History of Present illness Narrative* HERE FOR MED REFILL * WANTS TO SEE CARDIO FOR OFF AND ON PALPITATIONS * WANTS TO SEE UPPERS EDGE BURNISHER FOR OFF AND ON RASH [facility] Work Phone: History of Present illness Narrative* PT C/O SINUS CONGESTION DRAINAGE AND PRESSURE, PRODUCTIVE COUGH * FOR COUPLE OF WEEKS * SEVERITY:MODERATE * CHARACTERISTIC: ACUTE * EXACERBATION FACTOR: NONE * RELIEVING FACTOR: NONE * ASSOCIATED SYMPTOMS: NAUSEA AND VOMITING DUE TO DRAINAGE, NO FEVER NO CHILLS, NO SOB * PRIOR TX: COUGH SYRP, TYLENOL [facility] Work Phone: History of [...] changing positions. BP not currently [facility]at the [facility] and patient hypotensive in the office. * In further conversation, patient reports a history of acute renal failure approximately 22 years ago and requesting to see a wind energy technician to establish care. She also is not happy with her current Neurologist in [place] and would like a referral placed to Dr. Valentina Chopra (previous Neurologist) to better manage her seizure medications. * Patient denies any chest pain/pressure/discomfort or SOB. She does report occasional swelling in her lower extremities and she reports elevating her feet when she is back in her apartment. [id number] Work Phone: History of Present illness Narrative* [...] changing positions. BP not currently checkedat the [facility] and patient hypotensive in the office. * In further conversation, patient reports a history of acute renal failure approximately 22 years ago and requesting to see a wind energy technician to establish care. She also is not happy with her current Neurologist in [place] and would like a referral placed to Dr. Valentina Chopra (previous Neurologist) to better manage her seizure medications. * Patient denies any chest pain/pressure/discomfort or SOB. She does report occasional swelling in her lower extremities and she reports elevating her feet when she is back in her apartment. [facility] Work Phone: History of Present illness Narrative* eRema Shah is a 47-year-old female with a [...] changing positions. BP not currently checkedat the [facility] and patient hypotensive in the office. * In further conversation, patient reports a history of acute renal failure approximately 22 years ago and requesting to see a wind energy technician to establish care. She also is not happy with her current Neurologist in [place] and would like a referral placed to Dr. Valentina Chopra (previous Neurologist) to better manage her seizure medications. * Patient denies any chest pain/pressure/discomfort or SOB. She does report occasional swelling in her lower extremities and she reports elevating her feet when she is back in her apartment. [facility] Work Phone: History of Present illness [...] you for this referral and please call [phone] with any questions or concerns. * Clinical Presentation: Stable and/or uncomplicated characteristics. * Level of Complexity: low * Problem List: activity limitations, ADLs/IADLs/self care skills, decreased knowledge of HEP, flexibility, gait/locomotion, pain, participation restrictions, range of motion/joint mobility and strength. [facility] Work Phone: History of Present illness [...] changing positions. BP not currently checkedat the [facility] and patient hypotensive in the office. * In further conversation, patient reports a history of acute renal failure approximately 22 years ago and requesting to see a wind energy technician to establish care. She also is not happy with her current Neurologist in [place] and would like a referral placed to Dr. Valentina Chopra (previous Neurologist) to better manage her seizure medications. * Patient denies any chest pain/pressure/discomfort or SOB. She does report occasional swelling in her lower extremities and she reports elevating her feet when she is back in her apartment. [facility] Work Phone: History of Present illness [...] decrease fall risk and improve balance. [facility] Work Phone: History of Present illness [...] decrease fall risk and improve balance. [facility] Work Phone: History of Present illness [...] strength, improve balance/ambulation to decrease fall risk. [facility] Work Phone: History of Present illness [...] to decreasefall risk and improve ambulation. [facility] Work Phone: History of Present illness Narrative* Agree with CC as noted, Elle is a pleasant 47-year-old female arrived in wheelchair from [facility] for follow-up of right knee pain. Aquatherapy helped with sx control, states she is no longer being scheduled. [facility] arrange transportation. States PT recommended OT, not clear for what- thinks for upper body strengthening. * Takes prn Tylenol with no sx improvement. States no IcyHot provided at facility, no BioFreeze beingused with short-term symptom relief. [facility] 300 [...] you for this referral and please call [phone] with any questions or concerns. [facility] Work Phone: History of Present illness NarrativePatient tolerated treatment without increased pain. Patient has weak TrA and attempts to keep intact. Patient needing one noodle to ambulate across pool with CHOKER HOOKER. Patient needing one UE support with SBA to perform LE ther-ex. Patient needing B UE support with 100% unloading. Patient uses pool chairto enter/exit pool. Patient has full body tremors. Continue with LE strength/gait to improve ambulation, standing to decrease fall risk. [facility] Work Phone: History of Present illness NarrativePatient tolerated treatment without increased pain. Patient enter/exits pool using pool chair. Patient needing one noodle with CHOKER HOOKER to ambulate from pool chair across pool for ambulation. Patient ableto perform B LE ther-ex with one UE support and B UE support with 100% unloading. Patient leans against pool wall when performing UE theer-ex for balance control. Continue with gait/mobility to decrease falls and improve mobility. [facility] Work Phone: History of Present illness NarrativePatient tolerated treatment without increased pain. Patient has weak TrA and keeps intact with ther-ex. Patient needing CHOKER HOOKER with noodle to ambulate across pool. Needing one UE support with LE ther-exand B UE support with 100% unloading. Patient with improved balance/coordination with ambulation and ther-ex. Patient with decreased full body tremors today in pool. Continue with gait/mobility to dec rease fall risk. [facility] Work Phone: History of Present illness NarrativePatient tolerated treatment without increased pain. Patient has Fair TrA and keeps intact with ther-ex. Patient uses pool chair to enter/exit pool. Patient needing one noddle and CHOKER HOOKER to ambulate across pool. Patient needing one UE support with LE ther-ex and with 100% unloading. Patient has good form/understanding with ther-ex. Patient has full body tremors and needing to stand still until tremors pass. Continue with gait/mobility to decrease fall risk and improve mobility.[facility] Work Phone: History of Present illness NarrativePatient tolerated treatment without pain. Patient has Fair TrA and keeps intact with ther-ex. Patient needing to use pool chair to enter/exit pool. Patient needing one noodle and CHOKER HOOKER to ambulate across pool. Patient needing to lean against pool wall to perform UE ther-ex. Patient with full body tremors in water. Had patient stand still, therapist added pressure to shoulders and tremors would disapate. Continue with gait/mobility, standing to improve ambulation to decrease falls. [facility] Work Phone: History of Present illness NarrativePatient tolerated treatment without increased pain. Patient has weak TrA and keeps intact with ther-ex. Patient needing use of pool chair to enter/exit pool. Patient needing one noodle and CHOKER HOOKER to ambulate across pool. Patient with improved ambulation across pool and decreased tremors in pool today.Continue with gait/ambulation to decrease fall risk and improve LE strength. [facility] Work Phone: History of Present illness [...] improve balance and ambulation to decrease fall risk.[facility] Work Phone: History of Present illness [...] balance to decrease fall risk and improve ADL.[facility] Work Phone: History of Present illness NarrativePatient tolerated treatment without increased pain. Patient ambulates with CHOKER HOOKER into pool, up/down steps with hand held [...] gait/mobility/balance to decrease fall risk and improve ambulation.[facility] Work Phone: History of Present illness [...] balance to decrease fall risk and improve ADL.[facility] Work Phone: History of Present illness NarrativePatient tolerated treatment without increased pain. Patient has Fair TrA and keeps intact with ther-ex. Patient ambulating with CHOKER HOOKER from W/C to pool steps. Patient enter/exits pool uses steps with one HR, SBA. Patient ambulates across pool with CHOKER HOOKER. Patient needing one UE support with LE ther-ex and with 100% unloading. At end of treatment Watsu is performed to decrease tremors/relaxation/. Continue with over all strength/ROM to decrease fall risk and improve ambulation. [facility] Work Phone: History of Present illness NarrativePatient tolerated treatment without pain. Patient able to ambulate up/down steps with one HR and CHOKER HOOKER. Patient has good form/understanding with ther-ex. Patient able to ambulate across pool with one CHOKER HOOKER. Patient tolerates watsu at end of therapy to decrease tremors and improve relaxation. Continue with LE strength/ROM to decrease fall risk and improve ambulation. [facility] Work Phone: History of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 change her clothes [...] Seek Emergent Care with EMS/911/ED, When to Pattern Duplicator and As Directed by CASE COORDINATOR/Surgeon/Specialist Additional Information Discussed: Yes Providers/Clinics: Home Health Care Arrangements Initiated: No Follow up with Valentina Chopra MD Specialty: Neurology [address] [place] [address] Future Appointments Date Time Provider Department Center [...] - 03/31/2019 2:44 PM EDT SS from [facility] phoned, beginning evaluation for assisted living. Provided with pt. History and struggles including medication management and follow up. Will reach out for update closer to final plan. documented in this encounter* Gauri Saavedra MSW LSW - 12/03/2020 2:19 PM EST DISCHARGE PLAN PROGRESS NOTE Date: 12/03/2020 Time: 2:23 PM Received message from [facility] arranged for 15:00 through [employer]. Message sent to JOHN Garcia. Updated Marifer with [facility]. Patient updated. Patient Name: Reema Shah Date of : 1975 Sex: Female [facility] Disposition D/C Disposition: Longterm Facility Agency/Destination: [facility] PAS/RR: PAS, LOC Transportation Type: W/C [employer] Transportation Company/Agency Name: [employer](15:00 ([phone])) Options Reviewed: Explained services/benefits Reason for Choice: Patient/Family preference * Gauri Saavedra MSW LSW - 12/03/2020 1:15 PM EST DISCHARGE PLAN PROGRESS NOTE Date: 12/03/2020 Time: 1:16 PM Received level of care results. Updated Marifer with [facility]. Results emailed to Marifer. Updated Dr. Cutler and plan is for discharge. Message sent to JOHN Garcia with an update. Message sent to [facility] for transport. Awaiting time. Patient Name: Reema Shah Date of : 1975 Sex: Female [facility] Disposition D/C Disposition: Longterm Facility Agency/Destination: [facility] Options Reviewed: Explained services/benefits Reason for Choice: Patient/Family preference Anticipated Discharge Plan Anticipated Facility Type: jail facility * Gauri Saavedra MSW LSW - 12/03/2020 1:02 PM EST DISCHARGE PLAN PROGRESS NOTE Date: 12/03/2020 Time: 1:02 PM Received message from [employer] with the [facility] requesting additional documents be sent for level of care. Document emailed per current protocol. Patient Name: Reema Shah Date of : 1975 Sex: Female [facility] Disposition D/C Disposition: Longterm Facility Agency/Destination: [facility] Options Reviewed: Explained services/benefits Reason for Choice: Patient/Family preference * Anna CancinoTESSY - 12/03/2020 11:25 AM EST Occupational Therapy [...] Walker Prior Level of Function Level of [place]: Needs assistance with ADLs, Needs assistance with [...] completion of Occupational Therapy Plan of Care. * Gauri Saavedra MSW LSW - 12/03/2020 11:07 AM EST DISCHARGE PLAN PROGRESS NOTE Date: 12/03/2020 Time: 11:07 AM Continue to await level of care results. Patient Name: Reema Shah Date of : 1975 Sex: Female [facility] Disposition D/C Disposition: Longterm Facility Agency/Destination: [facility] Options Reviewed: Explained services/benefits Reason for Choice: Patient/Family preference Anticipated Discharge Plan Anticipated Facility Type: jail facility * Scott Cutler MD - 12/02/2020 4:51 PM EST [facility] Medicine Inpatient Follow-up 12/02/2020 Scott Cutler MD [facility] Patient: Reema Shah Date of : 1975 (45 y.o.) PCP: Nedra Brewer CNP ASSESSMENT/PLAN: Reema Shah 45 y.o. female presented with Principal Problem: Fall Active Problems: Essential hypertension Acute kidney injury superimposed on CKD (HCC) GERD (gastroesophageal reflux disease) Seizures (HCC) Weakness Hypokalemia Thrombocytopenia ([facility]) Closed undisplaced fracture of nasal bone, initial [...] Past Medical History: Diagnosis Date Acquired thrombocytopenia ([facility]) [facility]/Lopez Shaikh Acute kidney injury ([facility]) 05/22/2018 [facility]/Jonatan Chiu DO Anxiety Arm abrasion 06/19/2019 INFO GAINED FROM: /[facility] ED VISIT NOTE --- AC GAO MD Calcaneal spur of right foot 2017 Documented on x-ray CKD (chronic kidney disease) Congestive heart failure (CHF) ([facility]) [facility]/Lopez Shaikh Contusion, hip 06/19/2019 INFO GAINED FROM: /[facility] ED VISIT NOTE --- AC GAO MD Depression Epilepsy ([facility]) 08/06/2011 [facility]- Dr. Chopra Epilepsy ([facility]) 1993 Facet degeneration of lumbar region 10/14/2018 [facility]/Moi De La Cruz MD Mild facet degenerative changes seen in the lower lumbar spine Fatty liver [facility]/Joe Mendieta MD Mild fibrofatty changes of the liver Fluid collection (edema) in the arms, legs, hands and feet 03/09/2018 Dr valentina Chopra Gastritis determined by endoscopy 12/29/2016 Dr. GonzalezBrhlhw-Csrhvqfld-latdcqgjilefm nonbleeding with biopsy 1 para 1 Hepatic steatosis [facility]/Heidy Jara MD Mild Hiatal hernia 12/29/[address] Lobo grade 4 Hypercholesterolemia [facility]/Jonatan Chiu DO Hypertension 2000 2000-present Insomnia [facility]/Lopez Shaikh Kidney stone [facility]/Lopez Shaikh Laceration of head 06/19/2019 INFO GAINED FROM: /[facility] ED VISIT NOTE --- MURRAY ALEXIS,AC A Lung nodule 12/15/2017 0.5 cm pleural based nodule in right middle lobe. Mild linear atelectasis Mitral valve prolapse [facility]/Lopez Shaikh Motor seizure (HCC) 03/16/2019 INFO GAINED FROM: /[facility] ED VISIT --- MUKUL STEELE,CAREN Rectus diastasis [facility]/Heidy Jara MD Present with small wide necked perumbical ventral containing fat. Second degree burn of foot 04/23/2018 Right Foot - [facility] Sleep apnea Stroke (HCC) 2000 mild Tremor SUBJECTIVE: No new complain [...] PM IMAGING: Reviewed 4:54 PM * Sonia Ross RD - 12/02/2020 1:40 PM EST Nutrition [...] Past Medical History: Diagnosis Date Acquired thrombocytopenia ([facility]) [facility]/Lopez Shaikh Acute kidney injury (HCC) 05/22/2018 [facility]/Jonatan Chiu DO Anxiety Arm abrasion 06/19/2019 INFO GAINED FROM: /[facility] ED VISIT NOTE --- AC GAO MD Calcaneal spur of right foot 2016 Documented on x-ray CKD (chronic kidney disease) Congestive heart failure (CHF) ([facility]) [facility]/Lopez Shaikh Contusion, hip 06/19/2019 INFO GAINED FROM: /[facility] ED VISIT NOTE --- AC GAO MD Depression Epilepsy ([facility]) 08/06/2011 [facility]- [facility]. Chopra Epilepsy ([facility]) 1993 Facet degeneration of lumbar region 10/14/2018 [facility]/Jono ALEXIS, Moi Mild facet degenerative changes seen in the lower lumbar spine Fatty liver [facility]/Joe Mendieta MD Mild fibrofatty changes of the liver Fluid collection (edema) in the arms, legs, hands and feet 03/09/2018 Dr valentina Chopra Gastritis determined by endoscopy 12/29/2016 Dr. GonzalezNnwmir-Rgovzlctl-nabkkcoibjfrb nonbleeding with biopsy 1 para 1 Hepatic steatosis [facility]/Heidy Jara MD Mild Hiatal hernia 12/29/[address] Lobo grade 4 Hypercholesterolemia [facility]/Jonatan Chiu DO Hypertension 2000 2000-present Insomnia [facility]/Lopez Shaikh Kidney stone [facility]/Lopez Shaikh Laceration of head 06/19/2019 INFO GAINED FROM: /[facility] ED VISIT NOTE --- AC GAO MD Lung nodule 12/15/2017 0.5 cm pleural based nodule in right middle lobe. Mild linear atelectasis Mitral valve prolapse [facility]Lopez Shaikh Motor seizure (HCC) 03/16/2019 INFO GAINED FROM: /[facility] ED VISIT --- MUKUL STEELECAREN Rectus diastasis [facility]/Heidy Jara MD Present with small wide necked perumbical ventral containing fat. Second degree burn of foot 04/23/2018 Right Foot - [facility] Sleep apnea Stroke (HCC) 2000 mild [...] Estimated Energy Needs Total Energy Estimated Needs: 2442-6990 Method for Estimating Needs: 30 kcal/kg Total Protein Estimated Needs: 90 Method for Estimating Needs: 1.2 gm/kg SAUD Carranza, MALICKN, LD Cell Office * Gauri Saavedra MSW LSW - 12/02/2020 1:03 PM EST DISCHARGE PLAN PROGRESS NOTE Date: 12/02/2020 Time: 1:03 PM Received in-basket message from Marifer with [facility] and the patient has been accepted. Updated the patient. Preadmission screening completed and submitted. Level of care completed and submittedto the [facility]. Awaiting results. Patient Name: Reema Shah Date of : 1975 Sex: Female [facility] Disposition D/C Disposition: Longterm Facility Agency/Destination: [facility] Options Reviewed: Explained services/benefits Reason for Choice: Patient/Family preference * Becki Ferrer LISW - 12/01/2020 3:24 PM EST Spoke with patient (Pt) at request of Dr. Olivares. Family member (Per Dr. Olivares this is Pt's cousin) that Pt is currently residing with is present during discussion. Pt was discharged from a facility in [place] to live with her cousin. Per cousin [...] are advocating for inpatient admission. Spoke with [facility] per Pt's request and they state they do not have any bed availability at this time. Pt requests this worker try anywhere else in [place] that's not assisted living. Contacted [facility] who state they will not be able to consider Pt until tomorrow. Also contacted [facility] and spoke with Marifer Hampton ([phone]) who reports they do have bed availability. Marifer states they will have to have a level of care completed due to Pt's insurance and this cannot be done until the [facility] opens up tomorrow. Marifer states that once this is completed the Pt's chart can be linked to them and she will review Ptfor possible admission. Did update Dr. Olivares who states that he will see if he can have Pt admittedto observation unit. Pt's LANGUAGE AND LITERATURE DIVISION CHAIR, Charlee Richey, contacted this worker and stated that she was concerned about the Pt and istrying to help with placement. Mayte states that she strongly advocates that Pt be admitted somewhere. Mayte reports that if anything is needed to contact her at her office [phone] and connect with option 1 to leave a message. 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 Patient reports her Biblical Studies Professor attends all herphysician appointments. Providers/Clinics: Home Health Care Arrangements Initiated: No Future Appointments Date Time Provider Department Center 03/01/2019 8:30 AM Nedra Brewer CNP [facility] Requested To: ? Bring All Medication Bottles To Appointment ? documented in this encounter Reason for Referral Status Reason Specialty Diagnoses / Procedures Referred By Contact Referred To Contact Authorized Cardiology Diagnoses Essential hypertension Chronic kidney disease, stage III (moderate) (HCC) Chest pain at rest Nedra Brewer CNP [address] [place] [address] [phone] Status Reason Specialty Diagnoses / Procedures Referred By Contact Referred To Contact Pending Review Cardiology Diagnoses Chest pain at rest Procedures Echocardiogram complete Zeke Onofre MD [address] [place] [id number] Status Reason Specialty Diagnoses / Procedures Referred By Contact Referred To Contact Pending Review Radiology Diagnoses Chest pain at rest Procedures NM Myocardial Perfusion Multiple SPECT Zeke Onofre MD [address] [place] [address] Status Reason Specialty Diagnoses / Procedures Referred By Contact Referred To Contact Closed Cardiology Diagnoses Essential hypertension Chronic kidney disease, stage III (moderate) (HCC) Chest pain at rest Nedra Brewer CNP [address] [id number] Zeke Onofre MD [address] [place] [address] Status Reason Specialty Diagnoses / Procedures Referred [...] with anxiety Scalp psoriasis Hiatal hernia Hirsutism OmayraScott humphrey MD [address] [place] [address] Specialty Diagnoses / Procedures Referred By Contac t Referred To Contact Otolaryngology Diagnoses Fracture of bone of nasal sinus (HCC) Sammie Iglesias MD [address] [place] [id number] [place] Galeana MD [address] [place] [address] Referral ID Status Reason Start Date Expiration Date V isits Requested Visits Authorized [id number] Authorized 07/18/2021 07/18/2022 1 1 Specialty Diagnoses / Procedures Referred By Contac t Referred To Contact Neurology Diagnoses Migraine without status migrainosus, not intractable, unspecified migraine type Jeanie Ayala MD [address] [place] [id number] [facility] Referral ID Status Reason Start Date Expiration Date V isits Requested Visits Authorized [id number] Authorized 10/28/2022 10/28/2023 1 1 Specialty Diagnoses / Procedures Referred By Contac t Referred To Contact Diagnoses Menorrhagia with irregular cycle Matthew Pérez MD [address] [facility], [address] [place] [address] Referral ID Status Reason Start Date Expiration Date V isits Requested Visits Authorized [id number] Pending Review 08/16/2023 08/15/2024 1 1 Specialty Diagnoses / Procedures Referred By Contac t Referred To Contact Radiology Diagnoses Preop testing Procedures XR chest 2 views Matthew Pérez MD [address] [facility], [address] [address] Referral ID Status Reason Start Date Expiration Date Visits Requested Visits Authorized [id number] Authorized Perform Procedure 08/15/2024 1 1 Specialty Diagnoses / Procedures Referred By Contac t Referred To Contact Diagnoses Preop testing Procedures ECG 12 Lead Matthew Pérez MD [address] [facility], [facility] [address] [place] [address] Referral ID Status Reason Start Date Expiration Date V isits Requested Visits Authorized [id number] Pending Review 08/16/2023 08/15/2024 1 1 Specialty Diagnoses / Procedures Referred By Contac t Referred To Contact Diagnoses Abnormal EKG Chest pain, unspecified type Procedures Nuclear Stress Test Jeanie Ayala MD [address] [place] [address] Referral ID Status Reason Start Date Expiration Date V isits Requested Visits Authorized [id number] Pending Review 09/08/2023 09/07/2024 5 5 Specialty Diagnoses / Procedures Referred By Contac t Referred To Contact Cardiology Diagnoses Preop testing Tachycardia Procedures Holter Or Event Meat Soaker Everett Walton MD [address], [address] [place] [address] Referral ID Status Reason Start Date Expiration Date V isits Requested Visits Authorized [id number] Pending Review 09/21/2023 09/20/2024 1 1 Specialty Diagnoses / Procedures Referred By Contac t Referred To Contact Cardiology Diagnoses Preop testing Tachycardia Procedures Transthoracic Echo (TTE) Complete WI ECHO TRANSTHORC R-T 2D W/WO M-MODE REC F-UP/LMTD WI DOP ECHOCARD COLOR FLOW VELOCITY MAPPING WI DOP ECHOCARD PULSE WAVE W/SPECTRAL F-UP/LMTD STD Everett Walton MD [address], [place] [address] Referral ID Status Reason Start Date Expiration Date Visits Requested Visits Authorized [id number] Pending Review Perform Procedure 09/21/2023 09/20/2024 1 1 Referral ID Status Reason Start Date Expiration Date V isits Requested Visits Authorized [id number] Authorized 09/21/2023 09/20/2024 1 1 Specialty Diagnoses / Procedures Referred By Contac t Referred To Contact Radiology Diagnoses Preop testing Tachycardia Procedures Nuclear Stress Test CHG MYOCARDIAL SPECT MULTIPLE STUDIES CHG MYOCARDIAL SPECT SINGLE STUDY AT REST OR STRESS Everett Walton MD [address], [place] [address] Referral ID Status Reason Start Date Expiration Date V isits Requested Visits Authorized [id number] Authorized 09/21/2023 09/20/2024 5 5 Specialty Diagnoses / Procedures Referred By Contac t Referred To Contact Diagnoses Preop testing Tachycardia Procedures Cardiology Interpretation Of Nuclear Stress - See Other Report For Nuclear Portion Everett Walton MD [address] [place], [place] [id number] [address] [phone] Referral ID Status Reason Start Date Expiration Date V isits Requested Visits Authorized [id number] Authorized 10/05/2023 10/04/2024 1 1 Specialty Diagnoses / Procedures Referred By Contac t Referred To Contact Occupational Therapy Diagnoses Frequent falls Procedures WI OFFICE/OUTPATIENT NEW HIGH MDM 60 MINUTES Mejia Cullen MD [address] [place], [place] [address] Referral ID Status Reason Start Date Expiration Date Visits Requested Visits Authorized [id number] Pending Review Eval and Treat 10/25/2023 10/25/2024 99 99 Specialty Diagnoses / Procedures Referred By Contac t Referred To Contact Physical Therapy Diagnoses Frequent falls Procedures WI OFFICE/OUTPATIENT NEW HIGH MDM 60 MINUTES Mejia Cullen MD [address] [place] [address] Referral ID Status Reason Start Date Expiration Date Visits Requested Visits Authorized [id number] Pending Review Eval and Treat 10/25/2023 04/22/2024 99 99 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) Procedures EEG CUSTODIAL MONITORING 2 - 3 DAY Sohail Hernandez MD PhD [address] [place] [address] Referral ID Status Reason Start Date Expiration Date V isits Requested Visits Authorized [id number] Pending Review 07/07/2024 07/02/2025 1 1 Specialty Diagnoses / Procedures Referred By Contac t Referred To Contact Radiology Diagnoses Encounter for screening mammogram for breast cancer Procedures BI mammo bilateral screening tomosynthesis Jeanie Ayala MD [address] [place] [address] Referral ID Status Reason Start Date Expiration Date Visits Requested Visits Authorized [id number] Authorized Perform Procedure 12/13/2023 12/12/2024 1 1 [...] Log into your personal health record on [email or web address] and enter M769 in the Education box to learn more about Seizure: Care Instructions. Current as of: March 20, 2018 Content Version: 12.0 6064-4066 [employer]. Care instructions adapted under license by your healthcare professional. If you have questions about a medical condition or this instruction, always ask your healthcare professional. [employer] disclaims any warranty or liability for your use of this information. documented in this encounter Hospital Course * Scott Cutler MD - 12/03/2020 2:12 PM EST HOSPITALIST DISCHARGE SUMMARY Patient: Reema Shah Account: [id number] Admitted: 12/01/2020 Discharge Date/Time: 12/03/2020 Clinical Summary FINAL DIAGNOSIS: Principal Problem: Fall Active Problems: Essential hypertension Acute kidney injury superimposed on CKD ([facility]) GERD (gastroesophageal reflux disease) Seizures ([facility]) Weakness Hypokalemia Thrombocytopenia ([facility]) Closed undisplaced fracture of nasal bone, initial encounter Hypothyroidism Past Medical History: Diagnosis Date Acquired thrombocytopenia ([facility]) [facility]/Lopez Shaikh Acute kidney injury ([facility]) 05/22/2018 [facility]/Jonatan Chiu DO Anxiety Arm abrasion 06/19/2019 INFO GAINED FROM: /[facility] ED VISIT NOTE --- AC GAO MD Calcaneal spur of right foot 2017 Documented on x-ray CKD (chronic kidney disease) Congestive heart failure (CHF) ([facility]) [facility]/Lopez Shaikh Contusion, hip 06/19/2019 INFO GAINED FROM: /[facility] ED VISIT NOTE --- AC GAO MD Depression Epilepsy ([facility]) 08/06/2011 [facility]- Dr. Chopra Epilepsy ([facility]) 1994 Facet degeneration of lumbar region 10/14/2018 [facility]/Moi De La Cruz MD Mild facet degenerative changes seen in the lower lumbar spine Fatty liver [facility]/Joe Mendieta MD Mild fibrofatty changes of the liver Fluid collection (edema) in the arms, legs, hands and feet 03/09/2018 Dr valentina Chopra Gastritis determined by endoscopy 12/29/2016 Dr. GuerreroKijfpd-Abhwewfdm-gezpryhebiytm nonbleeding with biopsy 1 para 1 Hepatic steatosis [facility]/Heidy Jara MD Mild Hiatal hernia 12/29/[address] Lobo grade 4 Hypercholesterolemia [facility]/Jonatan Chiu DO Hypertension 2000 2000-present Insomnia [facility]/Lopez Shaikh Kidney stone [facility]/Lopez Shaikh Laceration of head 06/19/2019 INFO GAINED FROM: /[facility] ED VISIT NOTE --- MURRAY ALEXIS,AC Escobar Lung nodule 12/15/2017 0.5 cm pleural based nodule in right middle lobe. Mild linear atelectasis Mitral valve prolapse [facility]/Lopez Shaikh Motor seizure (HCC) 03/16/2019 INFO GAINED FROM: /[facility] ED VISIT --- GILMAN ,CAREN Rectus diastasis [facility]/Heidy Jara MD Present with small wide necked perumbical ventral containing fat. Second degree burn of foot 04/23/2018 Right Foot - [facility] Sleep apnea Stroke (HCC) 2000 mild Tremor REASON FOR HOSPITALIZATION AND ADMITTING DIAGNOSIS: Seizures Seizures (HCC) [R56.9] Weakness [R53.1] Medication refill [...] Your Medications These medications were sent to [facility]/pharmacy #[id number] [place] [address] doxycycline hyclate 100 MG tablet You can [...] Physician(s) Family: Nedra Brewer CNP, , Address: [address] [place] [address] / [place] [address] Follow Up: [facility] Address: [address] [place] [address] Servicing Counties: [place] [phone] Nedra Brewer CNP [address] [place] [address] Follow up in 1 week(s) Aleksey Bhardwaj MD [facility] [address] [place] [phone] Follow up in 1 month(s) Patient instructions, [...] having some vaginal pain. LMP IUDD/C FROM [facility] [place]PT IS NOW AT [facility]; [facility]FACE FOR [facility] [employer] [facility]. SHE IS IN NEED OF A RX FOR HOSPITAL BED AND THEY WANT ORDERS FOR PHYSICAL THERAPYED F/U X 3 IN LAST 5 DAYS; WITHDRAW FROM RUNNING OUT OF [facility]--NEURO WON'T RX ANYMORE AND SHE CAN'T GET INTO [facility] UNTIL 06/05/21. C/O FEELING SHAKY AND HAS HAD MULTIPLE FALLS-L KNEE PAIN AND HIT HERHEAD A COUPLE OF TIMESPT HERE FOR FU [facility] PT CO SHARP PAIN IN ABDOMEN AND BACK ALSO HAS DARK YELLOW VAGINAL DISCHARGE DENIES ODORpt here today for fu resultsF/U ER VISIT 07/10/21 S/P FALL. PATIENT [...] WHITE SPOTS SHE WOULD LIKE LOOKED AT.* LANGUAGE AND LITERATURE DIVISION CHAIR BILAT KNEE PAIN * PT DOES NOT WALK MUCH DUE TO SEIZURES * REFERRAL: DR FARIA * PAIN 8/10 * GOING ON FOR MONTHS * LANGUAGE AND LITERATURE DIVISION CHAIR BILAT KNEE PAIN * PT DOES NOT WALK MUCH DUE TO SEIZURES * REFERRAL: DR FARIA * PAIN 8/10 * GOING ON FOR MONTHS 1 MONTH F/U. DISCUSS BACK PAIN. DECLINES FLU VACCINE* F/U BILAT KNEE PAIN * PRIMARY R KNEE PAIN * 9/10 * F/U BILAT KNEE PAIN * PRIMARY R KNEE PAIN * / PalpitationsPalpitationsPalpitations* PATIENT PRESENTS TO OFFICE FOR : [...] SHE NO LONGER IS RECEIVE THERAPY SERVICES. LANGUAGE AND LITERATURE DIVISION CHAIR- REFERRED BY RAYNE LIN FOR CKD* 1 [...] MENTAL HEALTH April 04, 2025 3:39 pm Chief Complaint Admit Date R07.9 January 01, 2025 6:2 2am seizure March 21, 2025 9:36a m MENTAL HEALTH April 04, 2025 3:39 pm mental health April 23, 2025 1:50a m Additional Source Comments Assessment & Plan Note [...] and allow cool down until at least skilled nursing back to the pre exercise hear rate. [...] and allow cool down until at least skilled nursing back to the pre exercise hear rate. [...] to consider following up with the general talent specialist.in this encounter Associated Problem(s): Chest pain [...] your blood pressure was elevated at the cigarette and filter chief inspector's office today because you had not taking your Cardura as the cigarette and filter chief inspector thought. Your blood pressure has decreased since [...] include nonsteroidals. The nonsteroidal class includes the mxqa-lrz-unctcmz medications of Motrin, Advil, Aleve, ibuprofen, Naprosyn as well as all the prescription nonsteroidals. Typically we follow individuals with chronic kidney disease a minimum of 2-3 times a year. As the kidney disease progresses we monitor closer. Typically start with a minimum of twice a year lab work and increase to every 3 months if indicated. Referral to a kidney specialist or wind energy technician is obtained with sudden declining kidney function, [...] been out of bed since arriving at [facility]. She lives with her cousin. She [...] toxicity. She follows with Dr. Gillette from [place]. She was also using Keppra 750 mg [...] to 1000 mg twice a day. 3. Cecil seizure precautions. 4. Monitor frequency alcohol seizures. [...] Portions of this chart was created using [employer] voice recognition software. Occasional wrong-word or sound-like [...] seizure coming. This nurse sent CD from [place] with X-Ray information with Zeke from CT per instructions from Nissa Richards NP to be scanned into patient's record. Patient's medications prior to admission are present in the med room in a cooler and need to be reviewed with this nurse and patient. There are reportedly (per patient) medications therein that she is allergic to. Per evening or night nurse supervisor, admission is not complete Patient is awake and alert, sitting in bed and able to express her needs. She reports that the tremors she is having at bedside report time are her baseline. No seizure activity reported. She also reports that she will be going to [facility] in [place] soon. documented in this encounter PHYSICAL THERAPY VISIT VARIANCE NOTE Patient reports that she is being transferred back to [facility] at 3pm. Nursing confirmed. PT orders discontinued at this time as patient returning to F in 10 mins. Problem: Falls, Risk of [...] 2.) The patient is discharged from the [facility] hospital PHYSICAL THERAPY VISIT VARIANCE NOTE Attempted [...] section and content) DATE CREATED AUTHOR 04/12/2018 [facility] DATE CREATED AUTHOR AUTHOR'S ORGANIZ ATION 04/12/2018 [facility] DATE CREATED AUTHOR AUTHOR'S ORGANIZ ATION 04/22/2018 [facility] DATE CREATED AUTHOR AUTHOR'S ORGANIZ ATION 05/15/2018 [facility] DATE CREATED AUTHOR AUTHOR'S ORGANIZ ATION 12/06/2018 [facility] DATE CREATED AUTHOR AUTHOR'S ORGANIZ ATION 07/20/2019 [facility] DATE CREATED AUTHOR AUTHOR'S ORGANIZ ATION 01/18/2023 [facility] DATE CREATED AUTHOR AUTHOR'S ORGANIZ ATION 06/16/2023 [facility] DATE CREATED AUTHOR AUTHOR'S ORGANIZ ATION 07/23/2023 [facility] DATE CREATED AUTHOR AUTHOR'S ORGANIZ ATION 09/03/[address] [facility] DATE CREATED AUTHOR AUTHOR'S ORGANIZ ATION 09/06/2023 [facility] DATE CREATED AUTHOR AUTHOR'S ORGANIZ ATION 06/17/2024 [facility] DATE CREATED AUTHOR AUTHOR'S ORGANIZ ATION 06/22/2024 [facility] DATE CREATED AUTHOR AUTHOR'S ORGANIZ ATION 07/03/2024 [facility] DATE CREATED AUTHOR AUTHOR'S ORGANIZ ATION 07/27/2024 [facility] DATE CREATED AUTHOR AUTHOR'S ORGANIZ ATION 02/20/2025 [facility] DATE CREATED AUTHOR AUTHOR'S ORGANIZ ATION 05/04/2025 [facility] DATE CREATED AUTHOR AUTHOR'S ORGANIZ ATION 05/08/2025 [facility] Reason for Visit (unrecogniz ed section and content) Reason Comments Gastroesophageal Reflux Hypertension Error Reason Comments Follow-up ED 09/22 states stoma ch feeling better, seeking neurologist Dr. Chopra, Follow-up ED 10/02 left should er pain states feeling better had falls Reason Comments PRIOR AUTHORIZATION CARDURA Reason Comments Establish Care referred to office b y PCP, s/p [facility] ED x2 for abdominal pain, L radiating shoulder pain Status Reason Specialty Diagnoses / Procedures Referred By Contact Referred To Contact Closed Cardiology Diagnoses Essential hypertension Chronic kidney disease, stage III (moderate) (HCC) Chest pain at rest [place], Nedra Diana CNP [address] [place] [address] Zeke Onofre MD [address] [place] [address] Reason Comments Hypertension Sore Throat X 3 days Status Reason Specialty Diagnoses / Procedures Referred By Contact Referred To Contact Pending Review Radiology Diagnoses Chest pain at rest Procedures NM Myocardial Perfusion Study Single - Stress Only NM Myocardial Perfusion Multiple SPECT Zeke Onofre MD [address] [place] [address] Reason Comments Transition Of Care Pt reports [...] read 12/20/18-confirmed rs appt & instructions w/ Sally, flatwork finisher at [place], as well as spoke to pt re change of test due to ins auth/JF Procedures NM MYOCARDIAL PERFUSION MULTI SPECT NM STRESS TEST Zeke Onofre MD [address] [place] [address] [place] [address] Reason Comments Seizures Status Reason Specialty Diagnoses / Procedures Referre d By Contact Referred To Contact Diagnoses Seizures (HCC) Weakness Medication refill Closed fracture of nasal bone, initial encounter Reason Comments ED 12/01/20 New Patient/Closed N maye Bone Fx Reason Comments Transition Of Care Reason Comments Transition Of Care follow up d/c 9 [facility] 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 Visit ED visit 9 Tremors anxiety induced Reason Comments Medication Refill Reason Comments Follow-up FU ER FOR HIGH BLOOD PRESSURE Reason Comments Follow-up Med refill today Reason Comments Follow-up 1 mo fu pt co notici ng blood when she wipes and trouble urinating Reason Comments Fall Patient reports mech anical fall at home ([facility]) no injury Reason Comments Follow-up GENERAL [...] C-collar Specialty Diagnoses / Procedures Referred By Shashi t Referred To Contact Radiology Diagnoses Preop testing Procedures XR chest 2 views Matthew Pérez MD [address] [facility], [place] [address] Referral ID Status Reason Start Date Expiration Date Visits Requested Visits Authorized [id number] Authorized Perform Procedure 08/15/2024 1 1 Specialty Diagnoses / Procedures Referred By Shashi mathew Referred To Contact Diagnoses Preop testing Procedures ECG 12 Lead Matthew Pérez MD [address] [facility], [place] [address] Referral ID Status Reason Start Date Expiration Date V isits Requested Visits Authorized [id number] Pending Review 08/16/2023 08/15/2024 1 1 Reason Comments Follow-up 6 MONTH F/U - ONLY L ABS DONE WERE ORDERED BY SHEET HANGER DR. PÉREZ - PENDING LAPAROSCOPY AND IUD PLACEMENT. MED REFILL LORAZEPAM. Reason Comments Fall Pt to ED from [facility], pt was transferring from her walker to wheelchair and lost her balance and fell back against the corner of a wall. Pt hit posterior head, no bleeding or edema noted at this time. Pt also has scrape to right posterior elbow. Denies LOC, neck pain. Not on blood thinners Reason Comments Fall Specialty Diagnoses / Procedures Referred By Danteac t Referred To Contact Cardiology Diagnoses Preop testing Tachycardia Procedures Holter Or Event Meat Soaker Everett Walton MD [address] [place], [place] [phone] Referral ID Status Reason Start Date Expiration Date V isits Requested Visits Authorized [id number] Authorized 09/21/2023 09/20/2024 1 1 Specialty Diagnoses / Procedures Referred By Contac t Referred To Contact Radiology Diagnoses Preop testing Tachycardia Procedures Nuclear Stress Test CHG MYOCARDIAL SPECT MULTIPLE STUDIES CHG MYOCARDIAL SPECT SINGLE STUDY AT REST OR STRESS Everett Walton MD [address] [facility], [address] [place] [address] Referral ID Status Reason Start Date Expiration Date V isits Requested Visits Authorized [id number] Authorized 09/21/2023 09/20/2024 5 5 Reason Comments New Patient Patient is here for frequent falls. She is having high blood pressure, heart races at times.Very difficult for her to walk, very unsteady. Specialty Diagnoses / Procedures Referred By Shashi mathew Referred To Contact Neurology Diagnoses Frequent falls Procedures [place] OFFICE/OUTPATIENT NEW HIGH MDM 60-74 MINUTES Valentina Chopra MD [address] [place] [address] Satya Faith MD [address] [place] [address] Referral ID Status Reason Start Date Expiration Date V isits Requested Visits Authorized [id number] Closed Specialty Services Required 08/19/2023 08/18/2024 1 [...] Referred By Shashi mathew Referred To Contact Diagnoses Chest pain chest pain Referral ID Status Reason Start Date Expiration Date Visits Re quested Visits Authorized [id number] 1 1 Reason Comments Follow-up Follow up Reason Onset Date Comments Records Request/[facility] Reason Onset Date Comments question 01/03/2024 Reason Comments Establish Care Reason Comments Follow-up 3 month follow-up Reason Comments Follow-up MED REFILL TODAY Reason Comments Consult EndometriosisFibroid sChaperone not requiredReviewed and approved by NOHEMI NEWELL on 04/05/24 at 10:56 AM. Specialty Diagnoses / Procedures Referred By Contac t Referred To Contact Obstetrics and Gynecology Diagnoses Endometriosis Valentina Munoz MD [address] [facility], [address] [address] Referral ID Status Reason Start Date Expiration Date Visits Requested Visits Authorized [id number] Authorized Specialty Services Required 11/10/2023 11/09/2024 1 1 Reason Comments Psoriasis New Patient(JY) Specialty Diagnoses / Procedures Referred By Contac t Referred To Contact Dermatology Diagnoses Psoriasis, unspecified Procedures consultation Mejia Cullen MD [address] [place] [address] [facility] Derm [address] [place] [address] [place] [phone] Referral ID Status Reason Start Date Expiration Date V isits Requested Visits Authorized [id number] Pending Review 04/14/2024 04/14/2025 1 1 Reason Comments Abdominal Pain Specialty Diagnoses / Procedures Referred By Contac t Referred To Contact Diagnoses Thrombocytopenia (HCC) Acute appendicitis History of epilepsy Elevated serum creatinine Acute appendicitis, unspecified acute appendicitis type Referral ID Status Reason Start Date Expiration Date Visits Re quested Visits Authorized [id number] 1 1 Reason Comments Follow-up Lap appendectomy Reason Comments New Patient New Patient referred to us by Dr. Chopra for seizures. Last seizure was in March of 2024 and went to [facility] ED in [place]. 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) Procedures [place] OFFICE/OUTPATIENT [facility] 60 MINUTES Valentina Chopra MD [address] [facility] [address] [place] [address] Sohail Hernandez MD PhD [address] [facility] [address] [place] [address] Referral ID Status Reason Start Date Expiration Date Visits Requested Visits Authorized [id number] Pending Review Specialty Services Required 04/17/2024 04/17/2025 1 1 Reason Comments Follow-up Seizures Tremors Reason Comments Seborrheic Dermatitis PRASANTH: 05/31/24 with Gayatri Bobby PA-C([place]) Reason Comments Gynecologic Exam Patient is here for yearly exam. Specialty Diagnoses / Procedures Referred By Shashi mathew Referred To Contact Radiology Diagnoses Encounter for screening mammogram for breast cancer Procedures BI mammo bilateral screening tomosynthesis Jeanie Ayala MD [address] [place] [address] Referral ID Status Reason Start Date Expiration Date Visits Requested Visits Authorized [id number] Authorized Perform Procedure 12/13/2023 12/12/2024 1 1 Reason Comments Follow-up VIRTUAL [phone] (NURSE WITH ST [facility]) - F/U ER [...] surgery. Reason Onset Date Comments Other 10/30/[address] 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 female presented to [facility] on 03/16/2019 with seizures. PLAN: Seizure [...] toxicity. She follows with Dr. Gillette from [place]. She was also using Keppra 750 mg [...] to 1000 mg twice a day. 3. Cecil seizure precautions. 4. Monitor frequency alcohol seizures. [...] Portions of this chart was created using [employer] voice recognition software. Occasional wrong-word or sound-like [...] This occurred after she was discharged from [facility] where her Depakote was discontinued because [...] Past Medical History: Diagnosis Date Acquired thrombocytopenia ([facility]) [facility]/Lopez Shaikh Acute kidney injury ([facility]) 05/22/2018 [facility]/Jonatan Chiu DO Anxiety Calcaneal spur of right foot 2016 Documented on x-ray Chronic kidney disease, stage III (moderate) ([facility]) 2000 Congestive heart failure (CHF) ([facility]) [facility]Lopez Shaikh Depression Epilepsy ([facility]) 08/06/2011 [facility]- Dr. Chopra Epilepsy ([facility]) 1993 Facet degeneration of lumbar region 10/14/2018 [facility]/Jono ALEXIS, Saulius Mild facet degenerative changes seen in the lower lumbar spine Fatty liver [facility]/Joe Mendieta MD Mild fibrofatty changes of the liver Fluid collection (edema) in the arms, legs, hands and feet 03/09/2018 Dr valentina Chopra Gastritis determined by endoscopy 12/29/2016 Dr. GonzalezItlrez-Eimkgmlxj-hfjoottfevbri nonbleeding with biopsy Hepatic steatosis [facility]/Heidy Jara MD Mild Hiatal hernia 12/29/[address] Lobo grade 4 Hypercholesterolemia [facility]/Jonatan Chiu DO Hypertension 2000 2000-present Insomnia [facility]/Lopez Shaikh Kidney stone [facility]/Lopez Shaikh Lung nodule 12/15/2017 0.5 cm pleural based nodule in right middle lobe. Mild linear atelectasis Mitral valve prolapse [facility]/Lopez Shaikh Motor seizure ([facility]) 03/16/2019 INFO GAINED FROM: /[facility] ED VISIT --- CAREN GILMAN DO Rectus diastasis [facility]/Heidy Jraa MD Present with small wide necked perumbical ventral containing fat. Second degree burn of foot 04/23/2018 Right Foot - [facility] Sleep apnea Stroke ([facility]) 2000 mild Tremor Past Surgical History: Procedure Laterality Date Conner pH capsule placement 02/01/2017 Dr. Lobo BREAST REDUCTION 2000 bilateral EGD 12/29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 The patient's compliance is a commercial energy rater to return to prior level of function. [...] Walker Prior Level of Function Level of [place]: Needs assistance with ADLs, Needs assistance with homemaking Lives With: Family(Cousin and cousin's daughter) Receives Help From: Family ADL Assistance: Needs assistance Homemaking Assistance: Needs assistance Comments: Pt reports mod I with transfers using FWW. Requires some assist with all ADLs, cousin performs all IADLs. Past Medical History: Diagnosis Date Acquired thrombocytopenia ([facility]) [facility]/Lopez Shaikh Acute kidney injury (HCC) 05/22/2018 [facility]/Jonatan Chiu DO Anxiety Arm abrasion 06/19/2019 INFO GAINED FROM: /[facility] ED VISIT NOTE --- AC GAO MD Calcaneal spur of right foot 2016 Documented on x-ray CKD (chronic kidney disease) Congestive heart failure (CHF) ([facility]) [facility]Lopez Shaikh Contusion, hip 06/19/2019 INFO GAINED FROM: /[facility] ED VISIT NOTE --- AC GAO MD Depression Epilepsy ([facility]) 08/06/2011 [facility]- Dr. Chopra Epilepsy ([facility]) 1993 Facet degeneration of lumbar region 10/14/2018 [facility]/Jono ALEXIS, Saulius Mild facet degenerative changes seen in the lower lumbar spine Fatty liver [facility]/Joe Mendieta MD Mild fibrofatty changes of the liver Fluid collection (edema) in the arms, legs, hands and feet 03/09/2018 Dr valentina Chopra Gastritis determined by endoscopy 12/29/2016 Dr. GonzalezUzcqar-Mueywinki-jglsxsqmdduay nonbleeding with biopsy 1 para 1 Hepatic steatosis [facility]/Heidy Jara MD Mild Hiatal hernia 12/29/[address] Lobo grade 4 Hypercholesterolemia [facility]/Jonatan Chiu DO Hypertension 2000 2000-present Insomnia [facility]/Lopez Shaikh Kidney stone [facility]Lopez Shaikh Laceration of head 06/19/2019 INFO GAINED FROM: /[facility] ED VISIT NOTE --- AC GAO MD Lung nodule 12/15/2017 0.5 cm pleural based nodule in right middle lobe. Mild linear atelectasis Mitral valve prolapse [facility]Lopez Shaikh Motor seizure ([facility]) 03/16/2019 INFO GAINED FROM: /[facility] ED VISIT --- MUKUL STEELE,CAREN Rectus diastasis [facility]/Heidy Jara MD Present with small wide necked perumbical ventral containing fat. Second degree burn of foot 04/23/2018 Right Foot - [facility] Sleep apnea Stroke ([facility]) 2000 mild Tremor Past Surgical History: Procedure Laterality Date Conner pH capsule placement 02/01/2017 Dr. Lobo BREAST REDUCTION 2000 bilateral EGD 12/29/[facility]-grade 4 hiatal hernia-nonperforating gastritis [...] Per notes from Becki, emergency room social secretary, patient needs placement and would like an [place] facility. Becki spoke with Marifer with [facility] and they are willing to review the patient. Facility linked to [employer] [facility]. Patient Name: Reema Shah Date of : 1975 Sex: Female Discharge Planning Living Arrangements: Family members Caregiver Identified: Yes Caregiver's Name: Maria M Vicente Support Systems: Family members Assistance Needed: Moderate Type of Residence: Private residence Prior to Admission Home Care Services: No Patient expects to be discharged to:: Longterm Facility Does the patient need discharge transport arranged?: Yes Has discharge transport been arranged?: No Current Home Equipment: Walker Anticipated Facility Type: jail facility Anticipated Discharge Plan Anticipated Facility Type: jail facility [facility] Disposition D/C Disposition: Longterm Facility Agency/Destination: [facility] Options Reviewed: Explained services/benefits Reason for Choice: Patient/Family preference documented in this encounter Mirtha Crocker RN - 12/26/2018 9:36 AM EDT Nursing Notes (unrecognized section and content) Resting EKG NSR. Patient tolerated Dobutamine well. No c/o CP or SOB. in this encounter Veronika Hernandez CNP - 12/01/2020 4:31 PM EST H&P Notes (unrecognized sect ion and content) [facility] Inpatient H&P 12/01/2020 Veronika Hernandez CNP [facility] Patient: Reema Shah Date of : 1975 (45 y.o.) PCP: Nedra Brewer CNP Assessment Reema Shah 45 y.o. female with history of Past Medical History: Diagnosis Date Acquired thrombocytopenia ([facility]) [facility]/Lopez Shaikh Acute kidney injury ([facility]) 05/22/2018 [facility]/Jonatan Chiu DO Anxiety Arm abrasion 06/19/2019 INFO GAINED FROM: /[facility] ED VISIT NOTE --- AC GAO MD Calcaneal spur of right foot 2017 Documented on x-ray CKD (chronic kidney disease) Congestive heart failure (CHF) ([facility]) [facility]/Lopez Shaikh Contusion, hip 06/19/2019 INFO GAINED FROM: /[facility] ED VISIT NOTE --- AC GAO MD Depression Epilepsy ([facility]) 08/06/2011 [facility]- Dr. Chopra Epilepsy ([facility]) 1994 Facet degeneration of lumbar region 10/14/2018 [facility]/Jono ALEXIS, Moi Mild facet degenerative changes seen in the lower lumbar spine Fatty liver [facility]/Joe Mendieta MD Mild fibrofatty changes of the liver Fluid collection (edema) in the arms, legs, hands and feet 03/09/2018 Dr valentina Chopra Gastritis determined by endoscopy 12/29/2016 Dr. GuerreroBpxayn-Uxctdtxjv-pfogsuprqtymv nonbleeding with biopsy 1 para 1 Hepatic steatosis [facility]/Heidy Jara MD Mild Hiatal hernia 12/29/[address] Lobo grade 4 Hypercholesterolemia [facility]/Jonatan Chiu DO Hypertension 2000 2000-present Insomnia [facility]/Lopez Shaikh Kidney stone [facility]/Lopez Shaikh Laceration of head 06/19/2019 INFO GAINED FROM: /[facility] ED VISIT NOTE --- MURRAY ALEXIS,AC A Lung nodule 12/15/2017 0.5 cm pleural based nodule in right middle lobe. Mild linear atelectasis Mitral valve prolapse [facility]/Lopez Shaikh Motor seizure (HCC) 03/16/2019 INFO GAINED FROM: /[facility] ED VISIT --- GILMAN DO,CAREN Rectus diastasis [facility]/Heidy Jara MD Present with small wide necked perumbical ventral containing fat. Second degree burn of foot 04/23/2018 Right Foot - [facility] Sleep apnea Stroke (HCC) 2000 mild Tremor Principal Problem: Fall Active Problems: Weakness Closed undisplaced fracture of nasal bone, initial encounter Hypokalemia Seizures (HCC) Essential hypertension Acute kidney injury superimposed on CKD (HCC) Hypothyroidism GERD (gastroesophageal reflux disease) Thrombocytopenia (HCC) Plan: 1. Fall of Toilet & Weakness: [...] had been discharged from a facility in [place] to live with her cousin. Per the [...] her to go to a facility in [place]. Ms. Shah requested that the Clerical Grader try anywhere else in [place] that's not assisted living. Contacted [facility] who state they will not be able to consider Pt until tomorrow. Also contacted [facility] and spoke with Marifer Hampton ([phone]) who reports they do have bed availability. The Pt's LANGUAGE AND LITERATURE DIVISION CHAIR, Charlee Richey, contacted Social Work today and stated that she was concerned about the Pt and is trying to help with placement. Mayte states that she strongly advocates that Pt be admitted somewhere. Mayte reports that if anything is needed to contact her at her office [phone] and connect with option 1 to leave a message. Mayte also provided her personal cell phone, [phone], in the event that she is needed [...] Past Medical History: Diagnosis Date Acquired thrombocytopenia ([facility]) [facility]/Lopez Shaikh Acute kidney injury ([facility]) 05/22/2018 [facility]/Jonatan Chiu DO Anxiety Arm abrasion 06/19/2019 INFO GAINED FROM: /[facility] ED VISIT NOTE --- AC GAO MD Calcaneal spur of right foot 2017 Documented on x-ray CKD (chronic kidney disease) Congestive heart failure (CHF) ([facility]) [facility]/Lopez Shaikh Contusion, hip 06/19/2019 INFO GAINED FROM: /[facility] ED VISIT NOTE --- AC GAO MD Depression Epilepsy ([facility]) 08/06/2011 [facility]- Dr. Chopra Epilepsy (HCC) 1994 Facet degeneration of lumbar region 10/14/2018 [facility]/Jono ALEXIS, Sasharynus Mild facet degenerative changes seen in the lower lumbar spine Fatty liver [facility]/Joe Mendieta MD Mild fibrofatty changes of the liver Fluid collection (edema) in the arms, legs, hands and feet 03/09/2018 Dr valentina Chopra Gastritis determined by endoscopy 12/29/2016 Dr. LeePkxiuf-Wquwitbzz-iuewchayzhhcp nonbleeding with biopsy 1 para 1 Hepatic steatosis [facility]/Heidy Jara MD Mild Hiatal hernia 12/29/[address] Lobo grade 4 Hypercholesterolemia [facility]/Jonatan Chiu DO Hypertension 2000 2000-present Insomnia [facility]/Lopez Shaikh Kidney stone [facility]/Lopez Shaikh Laceration of head 06/19/2019 INFO GAINED FROM: /[facility] ED VISIT NOTE --- MURRAY ALEXIS,AC A Lung nodule 12/15/2017 0.5 cm pleural based nodule in right middle lobe. Mild linear atelectasis Mitral valve prolapse [facility]/Lopez Shaikh Motor seizure (HCC) 03/16/2019 INFO GAINED FROM: /[facility] ED VISIT --- MUKUL STEELE,CAREN Rectus diastasis [facility]/Heidy Jara MD Present with small wide necked perumbical ventral containing fat. Second degree burn of foot 04/23/2018 Right Foot - [facility] Sleep apnea Stroke (HCC) 2000 mild Tremor Past Surgical History: Procedure Laterality Date Conner pH capsule placement 02/01/2017 Dr. Lobo BREAST REDUCTION 1999 [facility]-nonperforating gastritis ESOPHAGEAL [...] her care. 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 She was currently living with her cousin in [place]. Allergies: Codeine, Dilaudid [hydromorphone], Erythromycin, Iodine and [...] Ruth Mcfarland RN - 12/01/2020 6:08 PM ESTLona Moore PSA - 12/01/2020 3:49 PM EST ED [...] TALKATIVE. C/O HEADACHE AND SOME NECK DISCOMFORT. [facility] ED Attending Note: NAME: Reema Shah 45 y.o. CSN: [id number] PCP: Nedra Brewer CNP History: Chief Complaint: [...] Past Medical History: Diagnosis Date Acquired thrombocytopenia ([facility]) [facility]/Lopez Shaikh Acute kidney injury (HCC) 05/22/2018 [facility]/Jonatan Chiu DO Anxiety Arm abrasion 06/19/2019 INFO GAINED FROM: /[facility] ED VISIT NOTE --- AC GAO MD Calcaneal spur of right foot 2016 Documented on x-ray Chronic kidney disease, stage III (moderate) 2000 Congestive heart failure (CHF) ([facility]) [facility]Lopez Shaikh Contusion, hip 06/19/2019 INFO GAINED FROM: /[facility] ED VISIT NOTE --- AC GAO MD Depression Epilepsy ([facility]) 08/06/2011 [facility]- [facility] Chopra Epilepsy ([facility]) 1993 Facet degeneration of lumbar region 10/14/2018 [facility]/Jono ALEXIS, Moi Mild facet degenerative changes seen in the lower lumbar spine Fatty liver [facility]/Joe Mendieta MD Mild fibrofatty changes of the liver Fluid collection (edema) in the arms, legs, hands and feet 03/09/2018 Dr valentina Chopra Gastritis determined by endoscopy 12/29/2016 Dr. GonzalezIctnuj-Fnmvxgxqa-inydmbfgrvdyf nonbleeding with biopsy Hepatic steatosis [facility]/Heidy Jara MD Mild Hiatal hernia 12/29/[address] Lobo grade 4 Hypercholesterolemia [facility]/Jonatan Chiu DO Hypertension 2000 2000-present Insomnia [facility]/Lopez Shaikh Kidney stone [facility]Lopez Shaikh Laceration of head 06/19/2019 INFO GAINED FROM: /[facility] ED VISIT NOTE ---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 each packet in 4 ounces of water = 5 mEq per 1 oz fluid. 2103 (Given - Provider: Ruth Topete RN) 0942 (Given - Provider: Diann Artis, RN)2008 (Given - Provider: Ruth Topete RN) 0846 (Given - Provider: Curtis Oshea RN) primidone (Mysoline) tablet 200 mg 200 mg, Oral, 2 times daily, First dose on Wed03/13/25 at 2100 2106 (Given - Provider: Ruth Topete RN) 1251 (Given - Provider: Diann Artis, JOHN)2012 (Given - Provider: Ruth Topete RN) 0846 (Given - Provider: Curtis Oshea RN) sodium chloride 0.9% (NS) flush 5-40 [...] after IV infusion)1251 (Given - Provider: Diann Artis, JOHN) 0531 (Given - Provider: Ruth Topete RN [...] sectionGoals may be documented in an alternate sectionGoals may be documented in an [...] BE BASED ON THE PRIMARY CLINICAL RECORDS. [facility]. provides no warranty or guarantee of the accuracy or completeness of information in this document.
[2025-05-21 04:00] VITALS: BP 180/113; PULSE 80; RESP 15; O2SAT 95
--- NOTE | 2025-05-21 04:00 | ED.VIS.CHEST ---
HPI History of Present Illness Chief Complaint: Chest Pain Informant: patient Narrative Narrative: Brought in from nursing facility in which she reported chest pain an hour prior to arrival. She cannot describe the pain. No radicular symptoms. History seizure disorder with clonic activities. During examination occasional twitching and tremors.'s chronic. Denies recent cough. Denies any dyspnea. Denies any cardiac history. CVD Risk Factors: Positive for Hypertension and Hypercholesterolemia; Negative for Diabetes or Smoking [facility] Medical History Borderline personality disorder Long-term use of high-risk medication Systolic heart failure Major depressive disorder Tremor History of CT (myocardial infarction) History of TIA (transient ischemic attack) [place] (obstructive sleep apnea) Separation of muscle (nontraumatic), unspecified site Nonrheumatic mitral (valve) prolapse Hypercholesteremia Fatty liver Edema Diaphragmatic hernia Hirsutism Fracture of nasal bone Insomnia History of UTI Obesity Psoriasis GERD (gastroesophageal reflux disease) CKD (chronic kidney disease) Epileptic seizure, generalized Hypokalemia Hypothyroidism [place] Medications ?Medication ?Instructions ?Recorded ?Last Taken ?Type albuterol sulfate 90 mcg/actuation 1 - 2 puff inhalation Q6H PRN PRN 03/05/20 Unknown History aerosol inhaler Sob &/Or Wheezing acetaminophen 325 mg capsule 650 mg PO Q4H PRN fever or pain 06/05/21 Unknown History (Tylenol) artifi.tears(hypromellose)(PF) 0.3 2 drp ophthalmic (eye) .Q1HR PRN 06/05/21 Unknown History % eye drops dry eye(s) atorvastatin 20 mg tablet 20 mg PO QHS 06/05/21 Unknown History buspirone 10 mg tablet 10 mg PO QHS 06/05/21 Unknown History levothyroxine 25 mcg capsule 25 mcg PO DAILY 06/05/21 Unknown History loratadine 10 mg capsule 10 mg PO Q24H 06/05/21 Unknown History melatonin 5 mg capsule 10 mg PO QHS PRN insomnia 06/05/21 Unknown History potassium chloride 10 mEq 20 meq PO BID 08/26/21 Unknown History capsule,extended release calcium carbonate (Sriram-Gest 200 mg PO DAILY 12/23/21 Unknown History Antacid) cyanocobalamin (vitamin B-12) 1,000 mcg PO DAILY 12/23/21 Unknown History 1,000 mcg tablet guaifenesin 400 mg tablet 400 mg PO Q6H PRN cough 12/23/21 Unknown History menthol 4 % topical gel (Biofreeze 1 applic topical DAILY PRN pain 12/23/21 Unknown History (menthol)) levetiracetam 500 mg tablet 500 mg PO BID #60 tabs 08/13/22 Unknown Rx (Keppra) calcium 600 mg (as 1 tab PO BID 09/26/24 Unknown History carbonate)-vitamin D3 10 mcg (400 unit) tablet desvenlafaxine succinate 50 mg 100 mg PO DAILY 09/26/24 Unknown History tablet,extended release 24 hr famotidine 20 mg tablet 20 mg PO BID 09/26/24 Unknown History lidocaine 5 % topical patch 1 patch topical DAILY 09/26/24 Unknown History lisinopril 20 mg tablet 20 mg PO DAILY 09/26/24 Unknown History magnesium oxide 400 mg (241.3 mg 400 mg PO DAILY 09/26/24 Unknown History magnesium) tablet metoprolol tartrate 25 mg tablet 25 mg PO BID 09/26/24 Unknown History ondansetron 4 mg disintegrating 4 mg PO Q6H PRN nausea and 09/26/24 Unknown Rx tablet vomiting #20 tabs primidone 50 mg tablet 200 mg PO BID 09/26/24 Unknown History lorazepam 1 mg tablet 2 mg PO Q12H 10/02/24 Unknown History amlodipine 5 mg tablet 5 mg PO QHS 11/04/24 Unknown History allopurinol 100 mg tablet 100 mg PO DAILY 03/21/25 Unknown History bisacodyl 10 mg rectal suppository 10 mg OK DAILY PRN constipation 03/21/25 Unknown History cholecalciferol (vitamin D3) 50 2,000 unit PO DAILY 03/21/25 Unknown History mcg (2,000 unit) capsule clonidine HCl 0.1 mg tablet 0.1 mg PO Q12H 03/21/25 Unknown History divalproex 250 mg tablet,extended 250 mg PO BID 03/21/25 Unknown History release 24 hr magnesium hydroxide 400 mg/5 mL 30 ml PO DAILY PRN constipation 03/21/25 Unknown History oral suspension sennosides 8.6 mg tablet (senna) 8.6 mg PO DAILY 03/21/25 Unknown History desvenlafaxine succinate 100 mg 100 mg PO DAILY 04/23/25 Unknown History tablet,extended release 24 hr (Pristiq) baclofen 5 mg tablet 5 mg PO BID PRN muscle spasm #20 05/21/25 Unknown Rx tabs Allergy/AdvReac Type Severity Reaction Status Date / Time phenytoin Allergy Mild Other Verified 05/21/25 02:33 gabapentin (From Neurontin) Allergy Unknown Unknown Verified 05/21/25 02:33 hydrocodone Allergy Unknown Unknown Verified 05/21/25 02:33 acetaminophen (From Vicodin) Allergy Rash Verified 05/21/25 02:33 erythromycin base Allergy Rash Verified 05/21/25 02:33 (Erythromycin Base) hydrocodone bitartrate (From Allergy Rash Verified 05/21/25 02:33 Vicodin) hydromorphone (From Dilaudid) Allergy Rash Verified 05/21/25 02:33 Penicillins Allergy Rash Verified 05/21/25 02:33 promethazine HCl (From Allergy Vomiting Verified 05/21/25 02:33 Phenergan) tramadol Allergy Rash Verified 05/21/25 02:33 codeine AdvReac Vomiting Verified 05/21/25 02:33 morphine AdvReac Vomiting Verified 05/21/25 02:33 ondansetron HCl (From Zofran) AdvReac Vomiting Verified 05/21/25 02:33 Social History housing: retirement Smoking Status: Never smoker Electronic Cigarette Use: not used second hand exposure: No alcohol intake: never substance use type: does not use ROS ROS ED Constitutional Constitutional ED: Denies chills, fever(s) or sweats ENT ENT ED: Denies sore throat Cardiovascular Cardiovascular: Reports chest pain; Denies leg edema, palpitations or racing heartbeat Respiratory/Chest Respiratory/Chest: Denies cough, dyspnea or dyspnea on exertion Gastrointestinal Gastrointestinal: Denies abdominal pain, diarrhea, nausea or vomiting Genitourinary Genitourinary ED: Denies dysuria, hematuria or urinary frequency Musculoskeletal Musculoskeletal: Denies back pain, extremity pain or neck pain Integumentary Denies rash or wounds Neurologic Neurologic: Denies headache(s), paresthesias or weakness EXAM Physical Exam Const Vital Signs: 05/21/25 02:31 05/21/25 02:35 05/21/25 03:30 Temperature 97.6 F L Temperature Source Axillary Pulse Rate 106 H 83 Respiratory Rate 27 H 17 Respiratory Effort Normal Non-Labored Blood Pressure 178/117 H 183/102 H Blood Pressure Mean 137 129 Pulse Ox 95 94 Oxygen Delivery Method Room Air 05/21/25 04:00 05/21/25 05:00 Temperature Temperature Source Pulse Rate 80 71 Respiratory Rate 15 14 Respiratory Effort Blood Pressure 180/113 H 158/115 H Blood Pressure Mean 135 129 Pulse Ox 95 94 Oxygen Delivery Method Room Air Room Air Positive well nourished Constitutional Narrative: Occasional tonic activities however she is awake. HEENT normocephalic and atraumatic Eyes General Eye ED: Yes normal appearance of both eyes Neck full ROM Resp normal respiratory effort and normal air movement Cardio regular rate and regular rhythm GI soft to palpation Extremity normal to inspection and full ROM Neuro oriented x3 MDM MDM MDM Narrative Medical decision making narrative: Interventions / MDM: Differential diagnosis: Atypical chest pain, seizure disorder Diagnosis considered but do not suspect: N/A My EKG interpretation: Sinus rhythm 97, no ST changes. ST-T waves are in aVL. Artifacts on the lateral leads of V5 V6. Imaging independently reviewed and interpreted by myself: 1 view chest x-ray no acute process also read by radiology. External documents reviewed: N/A Test considered but not ordered:N/A ED course: Patient nonspecific chest pain cannot describe the symptoms EKG nonspecific findings. Cardiac workup will be initiated with x-ray. With her twitching activities discussed muscle relaxer of baclofen for which she agreed. 5 mg p.o. ordered. 0430: Initial troponin negative at 14. Creatinine stable at 1.45. Hemoglobin 10.6. Chest x-ray negative. Reevaluation twitching is improving. She states baclofen seems to be helping. Discussed with nursing she typically has chronic twitching from her last visits. Discussed with patient will await delta troponin as she had chest symptoms for cardiac rule out. 0530: Delta troponin negative. Reevaluation her myoclonus seem to be improved. I discussed if she would like to have prescription for baclofen to use at facility. She states she would like this. Prescription for twice daily use was sent back with the patient. Re-evaluation: stable Disposition discussed with patient/family/significant other: Patient Case discussed with consulting clinician: N/A This note was generated with [employer] dictation software. It may contain incorrect words, spelling, and punctuation that were not noted in checking the note before signing. Lab Data Attestation: I reviewed the patient's lab results. Labs: Laboratory Results - last 24 hr 05/21/25 05/21/25 02:40 05:01 WBC 7.3 RBC 5.05 Hgb 15.6 H Hct 43.3 MCV 85.7 MCH 30.9 MCHC 36.0 RDW Std Deviation 39.7 RDW Coeff of Jeremiah 12.9 Plt Count 152 MPV 10.3 Immature Gran % (Auto) 0.500 Neut % (Auto) 62.2 Lymph % (Auto) 26.6 Sawyer % (Auto) 8.9 Eos % (Auto) 1.4 Baso % (Auto) 0.4 Absolute Neuts (auto) 4.6 Absolute Lymphs (auto) 1.95 Nucleated RBC % 0 Sodium 138 Potassium 4.4 Chloride 98 Carbon Dioxide 25.1 Anion Gap 14 BUN 40 H Creatinine 1.45 H Estim Creat Clear Calc 42.16 L Est GFR (MDRD) Non-Af 44 L BUN/Creatinine Ratio 27.9 H Glucose 97 Calcium 9.8 Troponin T High Sens 14 Troponin T Hi Sens 2 Hr 14 Radiography Diagnostic Testing: Clinical Impression(s) from Imaging Studies Chest X-Ray 05/21/25 03:00 IMPRESSION: No acute chest findings Reading Location: [place] [id number] Discharge Plan Triage Chief Complaint: Chest Pain ED Provider: Silverio Cantrell Dx/Rx/DC Orders Clinical Impression: Chest pain, Myoclonus Instructions: ED Chest Pain, Uncertain Cause Prescriptions: New baclofen 5 mg tablet 5 mg PO BID PRN (Reason: muscle spasm) Qty: 20 0RF No Action atorvastatin 20 mg tablet 20 mg PO QHS buspirone 10 mg tablet 10 mg PO QHS levothyroxine 25 mcg capsule 25 mcg PO DAILY loratadine 10 mg capsule 10 mg PO Q24H melatonin 5 mg capsule 10 mg PO QHS PRN (Reason: insomnia) acetaminophen [Tylenol] 325 mg capsule 650 mg PO Q4H PRN (Reason: fever or pain) artifi.tears(hypromellose)(PF) 0.3 % drops 2 drp ophthalmic (eye) .Q1HR PRN (Reason: dry eye(s)) guaifenesin 400 mg tablet 400 mg PO Q6H PRN (Reason: cough) potassium chloride 10 mEq capsule, extended release 20 meq PO BID Biofreeze (menthol) 4 % gel 1 applic topical DAILY PRN (Reason: pain) calcium carbonate [Sriram-Gest Antacid] 200 mg calcium (500 mg) tablet,chewable 200 mg PO DAILY cyanocobalamin (vitamin B-12) 1,000 mcg tablet 1,000 mcg PO DAILY levetiracetam [Keppra] 500 mg tablet 500 mg PO BID Qty: 60 4RF albuterol sulfate 1 PUFF inhaler 1 - 2 puff inhalation Q6H PRN PRN (Reason: Sob &/Or Wheezing) lorazepam 1 mg tablet 2 mg PO Q12H Rx Instructions: 1mg at night and 2mg in the morning allopurinol 100 mg tablet 100 mg PO DAILY bisacodyl 10 mg suppository 10 mg OK DAILY PRN (Reason: constipation) clonidine HCl 0.1 mg tablet 0.1 mg PO Q12H magnesium hydroxide 400 mg/5 mL suspension 30 ml PO DAILY PRN (Reason: constipation) sennosides [senna] 8.6 mg tablet 8.6 mg PO DAILY cholecalciferol (vitamin D3) 50 mcg (2,000 unit) capsule 2,000 unit PO DAILY divalproex 250 mg tablet extended release 24 hr 250 mg PO BID desvenlafaxine succinate [Pristiq] 100 mg tablet extended release 24 hr 100 mg PO DAILY famotidine 20 mg tablet 20 mg PO BID calcium carbonate-vitamin D3 600 mg-10 mcg (400 unit) tablet 1 tab PO BID lisinopril 20 mg tablet 20 mg PO DAILY magnesium oxide 400 mg (241.3 mg magnesium) tablet 400 mg PO DAILY lidocaine 5 % adhesive patch,medicated 1 patch topical DAILY metoprolol tartrate 25 mg tablet 25 mg PO BID desvenlafaxine succinate 50 mg tablet extended release 24 hr 100 mg PO DAILY primidone 50 mg tablet 200 mg PO BID ondansetron 4 mg tablet,disintegrating 4 mg PO Q6H PRN (Reason: nausea and vomiting) Qty: 20 0RF amlodipine 5 mg tablet 5 mg PO QHS Primary Care Provider: Sree Jamison Referrals: Sree Jamison MD [Primary Care Provider] - Activity Restrictions/Additional Instructions: Cardiac workup negative in the ED. Your muscle twitching seemed to improve with baclofen. You are written prescription to help with the symptoms to use as needed. Print Language: Zambian Disposition Disposition: Home, Self Care
[2025-05-21 05:00] VITALS: BP 158/115; PULSE 71; RESP 14; O2SAT 94
[2025-05-21 05:28] LABS: Troponin T High Sens 2 HR 14 ng/L (<=14)
[2025-05-21 06:00] VITALS: BP 167/123; PULSE 78; RESP 16; O2SAT 93
[2025-05-21 06:19] VITALS: BP 167/123; PULSE 78; RESP 16; TEMP 36.6; O2SAT 93
== END 2025-05-21 06:57 | disposition home or self-care (01) ==
PROVIDERS: Emergency Provider Emergency Medicine; PCP Family Medicine; Visit Provider Emergency Medicine
DX: R07.9 Chest pain, unspecified (principal); I13.0 Hypertensive heart and chronic kidney disease with heart failure and stage 1 through stage 4 chronic kidney disease, or unspecified chronic kidney disease; I50.22 Chronic systolic (congestive) heart failure; E78.00 Pure hypercholesterolemia, unspecified; G25.3 Myoclonus; N18.9 Chronic kidney disease, unspecified
CPT/HCPCS: 71045; 80048; 84484; 85025; 93005; 99285; A4216

== ENCOUNTER → 2025-06-13 | Outpatient (CLI) | payer MEDICAID, SELFPAY ==
--- NOTE | 2025-06-13 14:44 | BI_ITS ---
EXAM: SCRN MAMM (CAD)W/TAL BILAT DATE: 06/13/2025 CLINICAL HISTORY: F, Age 49 y/o , SCREENING No family history. History of prior bilateral breast reduction surgery. TECHNIQUE: SCRN MAMM (CAD)W/TAL BILAT COMPARISON: Prior exam(s) dated baseline study.. FINDINGS: TISSUE DENSITY: There are scattered areas of fibroglandular density. Bilateral Breast Mammographic Findings: No significant masses, calcifications or other abnormalities are identified. No suspicious masses, areas of developing architectural distortion, or suspicious calcifications. BI/SCRN MAMM (CAD)W/TAL BILAT IMPRESSION: No suspicious abnormality seen. OVERALL FINAL ASSESSMENT BI-RADS 1: NEGATIVE. RECOMMENDATION: Routine annual follow-up in 1 Year A letter with findings and recommendations will be mailed to the patient. Reading Location: [id number]
== END | disposition home or self-care (01) ==
PROVIDERS: PCP Family Medicine
DX: Z12.31 Encounter for screening mammogram for malignant neoplasm of breast (principal)
CPT/HCPCS: 77063; 77067

== ENCOUNTER 2025-08-21 17:43 | Emergency (ER) | payer MEDICAID, SELFPAY ==
[2025-08-21 17:45] VITALS: BP 156/92; PULSE 75; RESP 18; TEMP 37.1; O2SAT 97; BMI 35.9
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
--- NOTE | 2025-08-21 19:15 | CT_ITS ---
EXAM: CT/Brain/Head without Contrast
--- NOTE | 2025-08-21 19:15 | CT_ITS ---
EXAM: CT/Spine Cervical without Contras
--- NOTE | 2025-08-21 19:20 | RAD_ITS ---
PROCEDURE: RAD/Humerus min 2 Views
--- NOTE | 2025-08-21 19:20 | RAD_ITS ---
PROCEDURE: RAD/Humerus min 2 Views
[2025-08-21 19:44] VITALS: BP 149/94; PULSE 70; RESP 18; O2SAT 95
[2025-08-21 21:00] VITALS: PULSE 74; RESP 14; O2SAT 97
--- NOTE | 2025-08-21 21:41 | ED.RN ---
Nurse to nurse given to Adina Turner, all questions answered.
[2025-08-21 23:16] VITALS: BP 138/78; PULSE 71; RESP 16; TEMP 36.6; O2SAT 97
== END 2025-08-21 23:17 | disposition home or self-care (01) ==
PROVIDERS: Emergency Provider Emergency Medicine; PCP Family Medicine; Visit Provider Emergency Medicine
DX: S09.90XA Unspecified injury of head, initial encounter (principal); I50.22 Chronic systolic (congestive) heart failure; E78.00 Pure hypercholesterolemia, unspecified; N18.9 Chronic kidney disease, unspecified; S16.1XXA Strain of muscle, fascia and tendon at neck level, initial encounter; K21.9 Gastro-esophageal reflux disease without esophagitis; V00.811A Fall from moving wheelchair (powered), initial encounter; Z79.899 Other long term (current) drug therapy; R51.9 Headache, unspecified; S50.11XA Contusion of right forearm, initial encounter; S50.12XA Contusion of left forearm, initial encounter; I12.9 Hypertensive chronic kidney disease with stage 1 through stage 4 chronic kidney disease, or unspecified chronic kidney disease
CPT/HCPCS: 70450; 72125; 73060; 99284

== ENCOUNTER 2025-10-06 11:00 | Emergency (ER) | payer MEDICAID, SELFPAY ==
[2025-10-06] VITALS (19 sets, daily range): BP systolic 146–193; BP diastolic 90–119; PULSE 80–109; RESP 14–18; TEMP 36.6–37.6; O2SAT 90–95; BMI 35.9
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
--- NOTE | 2025-10-06 11:25 | CT_ITS ---
EXAM: CT Head Without Intravenous Contrast CLINICAL INDICATION: FALL, HIT HEAD, SEIZURE TECHNIQUE: Axial computed tomography images of the head/brain without intravenous contrast. This CT exam was performed using one or more of the following dose reduction techniques: automated exposure control, adjustment of the mA and/or kV according to patient size, and/or use of iterative reconstruction technique. COMPARISON: CT Head dated 08/21/2025 FINDINGS: BRAIN AND EXTRA-AXIAL SPACES: No acute intracranial hemorrhage, midline shift or mass effect. If symptoms persist, further evaluation with MRI is recommended. No significant white matter disease. BONES/JOINTS: Unremarkable. No acute fracture. SOFT TISSUES: Unremarkable. SINUSES: Unremarkable as visualized. No acute sinusitis. MASTOID AIR CELLS: Unremarkable as visualized. No mastoid effusion. CT/Brain/Head without Contrast IMPRESSION: 1. No acute intracranial hemorrhage, midline shift or mass effect. If symptoms persist, further evaluation with MRI is recommended. 2. No significant change from the prior exam. Reading Location: [id number]
--- NOTE | 2025-10-06 11:27 | EKG12_ITS ---
Test Reason : FALL Blood Pressure : */* mmHG Vent. Rate : 95 BPM Atrial Rate : 95 BPM P-R Int : 162 ms QRS Dur : 84 ms QT Int : 394 ms P-R-T Axes : 52 19 78 degrees QTcB Int : 495 ms Normal sinus rhythm Minimal voltage criteria for LVH, may be normal variant ( R in aVL ) Possible Inferior infarct , age undetermined QTcB >= 480 msec Abnormal ECG Reconfirmed by Bright Brannon ([id number]), scientific publications editor VIVI VILLARREAL ([id number]) on 10/08/2025 10:05:51 AM Also confirmed by Bright Brannon ([id number]), scientific publications editor VIVI VILLARREAL ([id number]) on 10/09/2025 8:04:52 AM Referred By: Confirmed By: Bright Brannon
--- NOTE | 2025-10-06 11:40 | RAD_ITS ---
EXAM: XR Chest, 1 View CLINICAL INDICATION: FALL TECHNIQUE: Frontal view of the chest. COMPARISON: No relevant prior studies available. FINDINGS: LUNGS AND PLEURAL SPACES: Unremarkable. No consolidation. No pneumothorax. HEART: Unremarkable. No cardiomegaly. MEDIASTINUM: Unremarkable. Normal mediastinal contour. BONES/JOINTS: Unremarkable. No acute fracture. RAD/Chest PA and Lateral IMPRESSION: No acute cardiopulmonary process. Reading Location: [id number]
--- NOTE | 2025-10-06 11:43 | ED.VIS.FALL ---
HPI HPI - Fall History of Present Illness Chief Complaint: Seizure Narrative Narrative: Patient is a 50-year-old female presenting to the emergency department after an unwitnessed fall with 2 seizure-like episodes that were witnessed. Patient has a past medical history of heart failure, RI, TIA, MELQUIADES, epileptic seizures on Keppra, divalproex and clonazepam, hypothyroidism, frequent falls. Patient is only able to provide basic history and states that she had a fall but is unsure what caused her to fall. She is unsure if she took her medications this morning. She is endorsing a headache. It is reported in triage note that she is nonverbal, she was verbal with me. Denies any neck or back pain. Denies chest pain shortness of breath or abdominal pain. [facility] Medical History Borderline personality disorder Long-term use of high-risk medication Systolic heart failure Major depressive disorder Tremor History of RI (myocardial infarction) History of TIA (transient ischemic attack) MELQUIADES (obstructive sleep apnea) Separation of muscle (nontraumatic), unspecified site Nonrheumatic mitral (valve) prolapse Hypercholesteremia Fatty liver Edema Diaphragmatic hernia Hirsutism Fracture of nasal bone Insomnia History of UTI Obesity Psoriasis GERD (gastroesophageal reflux disease) CKD (chronic kidney disease) Epileptic seizure, generalized Hypokalemia Hypothyroidism Falls Home Medications ?Medication ?Instructions ?Recorded ?Last Taken ?Type atorvastatin 20 mg tablet 20 mg PO QHS 06/05/21 Unknown History buspirone 10 mg tablet 10 mg PO TID DEPRESSION/ANXIETY 06/05/21 Unknown History levothyroxine 25 mcg capsule 25 mcg PO DAILY HYPOTHYROIDISM 06/05/21 Unknown History loratadine 10 mg capsule 10 mg PO DAILY ALLERGIES 06/05/21 Unknown History cyanocobalamin (vitamin B-12) 1,000 mcg PO DAILY 12/23/21 Unknown History 1,000 mcg tablet guaifenesin 400 mg tablet 400 mg PO Q6H PRN cough 12/23/21 Unknown History levetiracetam 500 mg tablet 500 mg PO BID EPILEPSY #60 tabs 08/13/22 Unknown Rx (Keppra) famotidine 20 mg tablet 20 mg PO BID GERD 09/26/24 Unknown History lidocaine 5 % topical patch 1 patch topical PRN BACK PAIN 09/26/24 Unknown History magnesium oxide 400 mg (241.3 mg 400 mg PO DAILY SUPPLEMENT 09/26/24 Unknown History magnesium) tablet metoprolol tartrate 25 mg tablet 25 mg PO BID HYPERTENSION 09/26/24 Unknown History primidone 50 mg tablet 200 mg PO BID EPILEPSY 09/26/24 Unknown History amlodipine 5 mg tablet 5 mg PO BID HYPERTENSION 11/04/24 Unknown History allopurinol 100 mg tablet 100 mg PO DAILY GOUT 03/21/25 Unknown History bisacodyl 10 mg rectal suppository 10 mg LA DAILY PRN constipation 03/21/25 Unknown History cholecalciferol (vitamin D3) 50 2,000 unit PO DAILY 03/21/25 Unknown History mcg (2,000 unit) capsule divalproex 250 mg tablet,extended 250 mg PO BID EPILEPSY 03/21/25 Unknown History release 24 hr magnesium hydroxide 400 mg/5 mL 30 ml PO DAILY PRN constipation 03/21/25 Unknown History oral suspension sennosides 8.6 mg tablet (senna) 8.6 mg PO DAILY PRN constipation 03/21/25 Unknown History desvenlafaxine succinate 100 mg 100 mg PO DAILY DEPRESSION 04/23/25 Unknown History tablet,extended release 24 hr (Pristiq) baclofen 5 mg tablet 5 mg PO BID PRN muscle spasm #20 05/21/25 Unknown Rx tabs acetaminophen 500 mg capsule 1,000 mg PO Q8H PRN pain 08/21/25 Unknown History calcium carbonate (Calcium 500) 500 mg PO BID HEARTBURN 08/21/25 Unknown History calcium carbonate (Calcium 500) 500 mg PO PRN HEARTBURN 08/21/25 Unknown History clonazepam 2 mg tablet 2 mg PO Q12H EPILEPSY 08/21/25 Unknown History clonidine HCl 0.2 mg tablet 0.4 mg PO TID HYPERTENSION 08/21/25 Unknown History dextromethorphan-guaifenesin 10 20 ml PO Q12H PRN cough 08/21/25 Unknown History mg-100 mg/5 mL oral syrup (Robafen DM Cough-Chest Congestion) hydralazine 10 mg tablet 10 mg PO Q6H HTN 08/21/25 Unknown History hydrocortisone 1 % topical cream 1 applic topical Q4H PRN 08/21/25 Unknown History (Preparation H Hydrocortisone) hemorrhoids ibuprofen 200 mg capsule 400 mg PO Q8H HEADACHE 08/21/25 Unknown History melatonin 10 mg capsule 10 mg PO DAILY PRN sleep 08/21/25 Unknown History polyethylene glycol 3350 17 17 g PO DAILY PRN constipation 08/21/25 Unknown History gram/dose oral powder (Miralax) potassium chloride 20 mEq 20 meq PO BID HYPOKALEMIA 08/21/25 Unknown History tablet,extended release(part/cryst) sennosides 8.6 mg capsule (senna) 17.2 mg PO DAILY PRN constipation 08/21/25 Unknown History Allergy/AdvReac Type Severity Reaction Status Date / Time phenytoin Allergy Mild Other Verified 10/06/25 11:07 gabapentin (From Neurontin) Allergy Unknown Unknown Verified 10/06/25 11:07 hydrocodone Allergy Unknown Unknown Verified 10/06/25 11:07 acetaminophen (From Vicodin) Allergy Rash Verified 10/06/25 11:07 erythromycin base Allergy Rash Verified 10/06/25 11:07 (Erythromycin Base) hydrocodone bitartrate (From Allergy Rash Verified 10/06/25 11:07 Vicodin) hydromorphone (From Dilaudid) Allergy Rash Verified 10/06/25 11:07 Penicillins Allergy Rash Verified 10/06/25 11:07 promethazine HCl (From Allergy Vomiting Verified 10/06/25 11:07 Phenergan) tramadol Allergy Rash Verified 10/06/25 11:07 codeine AdvReac Vomiting Verified 10/06/25 11:07 morphine AdvReac Vomiting Verified 10/06/25 11:07 ondansetron HCl (From Zofran) AdvReac Vomiting Verified 10/06/25 11:07 Social History housing: group home Smoking Status: Never smoker Electronic Cigarette Use: not used second hand exposure: No alcohol intake: never substance use type: does not use ROS ROS ED ROS Narrative see HPI, obtained from patient and EMS EXAM Physical Exam Narrative Exam Narrative: Vital signs: Reviewed General: Alert and orientedx2, not oriented to time. No acute distress. Chronically ill appearing, nontoxic. HEENT: Head is normocephalic and atraumatic. No cephalhematoma, lacerations or abrasions to the head or face. Sinuses nontender, pupils 3-4 mm bilaterally equal round and reactive. Nares are patent. No septal hematoma. Oropharynx and throat exams normal. No oropharyngeal trauma. Neck: Supple without lymphadenopathy nontender. No midline cervical spinal tenderness to palpation. No step-offs or deformities. No nuchal rigidity. Normal active range of motion. Cardiovascular: Regular rate and rhythm, no murmurs. No rubs or gallops. Normal S1 and S2 Respiratory: Clear to auscultation bilaterally. No wheezes, rales, rhonchi Chest: Chest wall is atraumatic and nontender to palpation with no crepitus, erythema or ecchymosis. Abdominal: Soft and nontender. Normal bowel sounds. No guarding or rebound. Nonsurgical abdomen Extremities: Hips are stable and nontender to palpation. Extremities are atraumatic and nontender to palpation. No tenderness. No bruising. Normal range of motion. Normal sensation. Neurological: Slow verbal response. Cranial nerves II through XII are grossly intact. Able to move all extremities. Normal sensation in all extremities. The rest of the physical exam is unremarkable Const Vital Signs: 10/06/25 11:02 10/06/25 11:06 10/06/25 11:10 Temperature 99.7 F H 98.8 F Temperature Source Oral Oral Pulse Rate 109 H 107 H Respiratory Rate 18 17 Respiratory Effort Normal Non-Labored Blood Pressure 193/119 H 178/105 H Blood Pressure Mean 143 129 Pulse Ox 95 95 Oxygen Delivery Method Room Air Room Air Room Air 10/06/25 12:06 10/06/25 13:00 10/06/25 14:00 Temperature 98.4 F 98 F 97.9 F Temperature Source Oral Oral Oral Pulse Rate 94 91 93 Respiratory Rate 14 15 18 Respiratory Effort Blood Pressure 167/104 H 146/90 H 164/90 H Blood Pressure Mean 125 108 114 Pulse Ox 95 94 94 Oxygen Delivery Method Room Air Room Air Room Air 10/06/25 15:00 10/06/25 15:26 10/06/25 15:30 Temperature 98.4 F Temperature Source Oral Pulse Rate 90 91 Respiratory Rate 15 18 Respiratory Effort Blood Pressure 172/96 H 163/97 H Blood Pressure Mean 121 113 Pulse Ox 92 95 Oxygen Delivery Method Room Air 10/06/25 15:45 Temperature Temperature Source Pulse Rate 90 Respiratory Rate 18 Respiratory Effort Blood Pressure Blood Pressure Mean Pulse Ox 90 Oxygen Delivery Method MDM MDM MDM Narrative Medical decision making narrative: Patient is a 50-year-old female presenting to the emergency department with a fall and head trauma with 2 witnessed seizures. Patient was seen and examined. Vitals are stable. Patient resting in bed comfortably no acute distress. Given the patient's head trauma and 2 seizures since I would be concerned about intracranial bleed in addition to the elevated blood pressure, was asked that patient go to CT next to have imaging done as soon as possible. CT reviewed by myself and I see no evidence of an intracranial bleed. Will wait on radiology read. EKG shows normal sinus rhythm at a rate of 95. There is some nonspecific ST changes in leads III, aVL and aVF, no reciprocal changes. No dysrhythmia. Nothing meeting STEMI criteria. QTC of 495. Additional differentials includes breakthrough seizure with medication noncompliance versus underlying infection. She has no fever or nuchal rigidity expect meningitis or encephalitis. [id number] glucose 104. CBC with no leukocytosis and hemoglobin is 16.4. BMP with baseline elevated BUN and creatinine of 35 and 1.52 respectively. Initial lactate of 3.2. Keppra level was sent and is pending. Urinalysis with no evidence of urinary tract infection. CT of the brain shows no acute intracranial abnormalities. CT cervical spine with no fracture or traumatic malalignment. Degenerative changes. Chest x-ray was reviewed by myself shows no opacities, pneumothorax or wide mediastinum. Radiology read in agreement. After fluid bolus, lactate resolved at 1.5. Patient reevaluated and is alert and orient x 3 now. She has no confusion on my discussion with her. She was updated on the negative workup and the fact that she had a breakthrough seizure. She had no seizures while here and I think she is stable for outpatient management. She will be discharged back to her facility. She is unsure if she took her medications today and she was encouraged to take her medications when she gets back for the evening dose. All questions answered. Patient discharged from the Emergency Department. I do not feel that the patient's evaluation reveals any acute reason for admission at this time. I instructed them to either follow-up with their primary care physician or promptly return to the Emergency Department for reevaluation should symptoms worsen or new symptoms develop. I explained what symptoms would indicate the need to return to the emergency department. Shared decision making was used. The patient voiced understanding of the treatment plan and is agreeable with it. Clinical impression Breakthrough seizure Fall History & Record Review Discussion w/independent historian: EMS personnel and Patient Lab Data Attestation: I reviewed the patient's lab results. Labs: Laboratory Results - last 24 hr 10/06/25 10/06/25 10/06/25 11:55 12:14 12:30 WBC 8.3 RBC 5.37 Hgb 16.4 H Hct 46.5 MCV 86.6 MCH 30.5 MCHC 35.3 RDW Std Deviation 39.4 RDW Coeff of Jeremiah 12.7 Plt Count 132 L MPV 10.2 Immature Gran % (Auto) 0.600 Neut % (Auto) 81.4 H Lymph % (Auto) 9.2 L Sequoyah % (Auto) 8.2 Eos % (Auto) 0.2 Baso % (Auto) 0.4 Absolute Neuts (auto) 6.7 Absolute Lymphs (auto) 0.76 L Nucleated RBC % 0 Sodium 141 Potassium 4.4 Chloride 100 Carbon Dioxide 26.0 Anion Gap 14 BUN 35 H Creatinine 1.52 H Estim Creat Clear Calc 40.72 L Est GFR (MDRD) Non-Af 41 L BUN/Creatinine Ratio 22.9 H Glucose 86 Lactic Acid 3.2 H* Calcium 10.1 Urine Color Urine Clarity Urine pH Ur Specific New[place] Urine Protein Urine Glucose (UA) Urine Ketones Urine Occult Blood Urine Nitrite Urine Bilirubin Urine Urobilinogen Ur Leukocyte Esterase Urine RBC Urine WBC Ur Squamous Epith Cells Urine Bacteria Urine Mucus Urine Opiates Screen NEGATIVE U Buprenorphine Qual NEGATIVE Ur Oxycodone Screen NEGATIVE Urine Methadone Screen NEGATIVE Urine Fentanyl Screen NEGATIVE Ur Barbiturates Screen PRESUMPTIVE POSITIVE Ur Phencyclidine Scrn NEGATIVE Ur Amphetamines Screen NEGATIVE U Benzodiazepines Scrn PRESUMPTIVE POSITIVE Urine Cocaine Screen NEGATIVE U Cannabinoids Screen NEGATIVE Ethyl Alcohol < 10.1 POC Glucose 104 10/06/25 10/06/25 13:50 15:00 WBC RBC Hgb Hct MCV MCH MCHC RDW Std Deviation RDW Coeff of Jeremiah Plt Count MPV Immature Gran % (Auto) Neut % (Auto) Lymph % (Auto) Sequoyah % (Auto) Eos % (Auto) Baso % (Auto) Absolute Neuts (auto) Absolute Lymphs (auto) Nucleated RBC % Sodium Potassium Chloride Carbon Dioxide Anion Gap BUN Creatinine Estim Creat Clear Calc Est GFR (MDRD) Non-Af BUN/Creatinine Ratio Glucose Lactic Acid 1.5 Calcium Urine Color Yellow Urine Clarity Clear Urine pH 6.0 Ur Specific [place] 1.015 Urine Protein 100 H Urine Glucose (UA) Normal Urine Ketones Negative Urine Occult Blood 10 H Urine Nitrite Negative Urine Bilirubin Negative Urine Urobilinogen Normal Ur Leukocyte Esterase Negative Urine RBC 0-5 SEEN Urine WBC 0 SEEN Ur Squamous Epith Cells 0-5 SEEN Urine Bacteria RARE Urine Mucus 0 SEEN Urine Opiates Screen U Buprenorphine Qual Ur Oxycodone Screen Urine Methadone Screen Urine Fentanyl Screen Ur Barbiturates Screen Ur Phencyclidine Scrn Ur Amphetamines Screen U Benzodiazepines Scrn Urine Cocaine Screen U Cannabinoids Screen Ethyl Alcohol POC Glucose Radiography Chest X-Ray - ED: 2 View, Read by ED Physician, Normal, No Acute Disease and No Infiltrates Diagnostic Testing: Clinical Impression(s) from Imaging Studies Brain CT 10/06/25 11:25 IMPRESSION: 1. No acute intracranial hemorrhage, midline shift or mass effect. If symptoms persist, further evaluation with MRI is recommended. 2. No significant change from the prior exam. Reading Location: [facility] Cervical Spine CT 10/06/25 11:25 IMPRESSION: No acute fracture or traumatic malalignment of the cervical spine. Degenerative changes as above. Recommend clinical correlation with neurologic exam. If there is clinical concern for spinal cord injury/compression or radiculopathy, MRI of the cervical spine should be performed for further evaluation. Reading Location: [facility] Chest X-Ray 10/06/25 11:40 IMPRESSION: No acute cardiopulmonary process. Reading Location: [facility] Discharge Plan Triage Chief Complaint: Seizure Other Complaint: Fall ED Provider: Rosie Brown Dx/Rx/DC Orders Clinical Impression: Seizure, Head injury Instructions: ED Head Injury (Adult), ED Seizure, Recurrent (Adult) Prescriptions: No Action atorvastatin 20 mg tablet 20 mg PO QHS buspirone 10 mg tablet 10 mg PO TID levothyroxine 25 mcg capsule 25 mcg PO DAILY loratadine 10 mg capsule 10 mg PO DAILY guaifenesin 400 mg tablet 400 mg PO Q6H PRN (Reason: cough) cyanocobalamin (vitamin B-12) 1,000 mcg tablet 1,000 mcg PO DAILY levetiracetam [Keppra] 500 mg tablet 500 mg PO BID Qty: 60 4RF allopurinol 100 mg tablet 100 mg PO DAILY bisacodyl 10 mg suppository 10 mg LA DAILY PRN (Reason: constipation) magnesium hydroxide 400 mg/5 mL suspension 30 ml PO DAILY PRN (Reason: constipation) Rx Instructions: ADMINISTER ONCCE DAILY IF NO BM IN 3 CONSECUTIVE DAYS sennosides [senna] 8.6 mg tablet 8.6 mg PO DAILY PRN (Reason: constipation) cholecalciferol (vitamin D3) 50 mcg (2,000 unit) capsule 2,000 unit PO DAILY divalproex 250 mg tablet extended release 24 hr 250 mg PO BID desvenlafaxine succinate [Pristiq] 100 mg tablet extended release 24 hr 100 mg PO DAILY famotidine 20 mg tablet 20 mg PO BID magnesium oxide 400 mg (241.3 mg magnesium) tablet 400 mg PO DAILY lidocaine 5 % adhesive patch,medicated 1 patch topical PRN Rx Instructions: REMOVE AFTER 24 HOURS metoprolol tartrate 25 mg tablet 25 mg PO BID primidone 50 mg tablet 200 mg PO BID amlodipine 5 mg tablet 5 mg PO BID baclofen 5 mg tablet 5 mg PO BID PRN (Reason: muscle spasm) Qty: 20 0RF calcium carbonate [Calcium 500] 500 mg calcium (1,250 mg) tablet,chewable 500 mg PO BID calcium carbonate [Calcium 500] 500 mg calcium (1,250 mg) tablet,chewable 500 mg PO PRN clonidine HCl 0.2 mg tablet 0.4 mg PO TID clonazepam 2 mg tablet 2 mg PO Q12H melatonin 10 mg capsule 10 mg PO DAILY PRN (Reason: sleep) potassium chloride 20 mEq tablet,ER particles/crystals 20 meq PO BID acetaminophen 500 mg capsule 1,000 mg PO Q8H PRN (Reason: pain) senna 8.6 mg capsule 17.2 mg PO DAILY PRN (Reason: constipation) dextromethorphan-guaifenesin [Robafen DM Cough-Chest Congest] 10-100 mg/5 mL syrup 20 ml PO Q12H PRN (Reason: cough) ibuprofen 200 mg capsule 400 mg PO Q8H hydralazine 10 mg tablet 10 mg PO Q6H polyethylene glycol 3350 [Miralax] 17 gram/dose powder 17 g PO DAILY PRN (Reason: constipation) hydrocortisone [Preparation H Hydrocortisone] 1 % cream 1 applic topical Q4H PRN (Reason: hemorrhoids) Primary Care Provider: Sree Jamison Referrals: Sree Jamison MD [Primary Care Provider, Family Practice] - As soon as possible Activity Restrictions/Additional Instructions: Your evaluation in the Emergency Department did not reveal any acute reason for admission. However, I want to emphasize that you may be early in the course of a disease process or illness even if it is not present. For this reason you should follow-up within 24 hours for reevaluation with either your primary care physician or if necessary back here in the Emergency Department. You should return to the Emergency Department immediately if your symptoms worsen or new symptoms develop. Print Language: Palestinian Disposition Disposition: Home, Self Care
[2025-10-06] MEDS: 0.9% Normal Saline (1000mL) 1,000 ML 1000 ML IV (11:52)
[2025-10-06 12:04] LABS: Hematocrit 46.5 % (37-47); Hemoglobin 16.4 g/dL (12.0-15.0); Immature Granulocytes Count 0.050 X10^3/uL (0.0-0.0); Mean Corp Hgb Conc 35.3 g/dL (32-36); Mean Corpuscular Volume 86.6 fL (81-99); Mean Platelet Vol. 10.2 fl (6.2-12.0); NRBC Flagged by Analyzer 0 % (0-5); Platelet Count 132 K/mm3 (150-450); RBC Distribution Width CV 12.7 % (11.6-14.6); RBC Distribution Width SD 39.4 fl (35.1-43.9); Red Blood Count 5.37 M/mm3 (4.2-5.4); White Blood Count 8.3 K/mm3 (4.4-11.0)
[2025-10-06 12:27] LABS: Alcohol, Blood (Medical)-Serum < 10.1 mg/dL (<=10.0); Anion Gap 14 (5-15); BUN 35 mg/dL (4-19); BUN/Creat Ratio 22.9 RATIO (10-20); Calcium,Total 10.1 mg/dL (7.6-11.0); Carbon Dioxide 26.0 mmol/L (21.0-32.0); Chloride 100 mmol/L (98-108); Estimated Creatinine Clearance 40.72 ml/min (50-250); Glucose 86 mg/dL (70-99); Potassium 4.4 mmol/L (3.3-5.1)
--- NOTE | 2025-10-06 12:35 | ED.RN ---
LAB CALLED [facility]ACT[facility] 3.2. DR ESTEBAN
[2025-10-06 13:04] LABS: Barbiturate Urine PRESUMPTIVE POSITIVE (< 200 ng/mL); Benzodiazepine Urine PRESUMPTIVE POSITIVE (< 200 ng/mL); PCP Urine NEGATIVE (< 25 ng/mL); THC Urine NEGATIVE (< 50 ng/mL)
[2025-10-06 14:05] LABS: Mucous, Urine 0 SEEN /hpf (<or=2+)
[2025-10-06 14:07] LABS: Color, Urine Yellow (Yellow); Glucose, Dipstick Normal (Normal); Ketone-Dipstick Negative (Negative); Leukocyte Esterase-Dipstick Negative /ul (Negative); Nitrite-Dipstick Negative (Negative); Occult Blood-Urine 10 /ul (Negative); Protein-Dipstick 100 mg/dl (Negative); Specific Gravity, Urine 1.015 (1.002-1.030); Urine Bilirubin Dipstick Negative (Negative)
[2025-10-06 14:17] LABS: Red Blood Cells-Urine 0-5 SEEN /hpf (0-5); Squamous Epithelial Cells - UA 0-5 SEEN /hpf (5-10)
[2025-10-06 15:57] LABS: Reflex Lactate? Y
[2025-10-10 13:08] LABS: KEPPRA (LEVETIRACETAM) 80.1 ug/mL (10.0-40.0)
== END 2025-10-06 18:39 | disposition home or self-care (01) ==
PROVIDERS: Emergency Provider Student in an Organized Health Care Education/Training Program; PCP Family Medicine; Visit Provider Student in an Organized Health Care Education/Training Program
DX: G40.909 Epilepsy, unspecified, not intractable, without status epilepticus (principal); I50.22 Chronic systolic (congestive) heart failure; S09.90XA Unspecified injury of head, initial encounter; I25.2 Old myocardial infarction; E78.00 Pure hypercholesterolemia, unspecified; R03.0 Elevated blood-pressure reading, without diagnosis of hypertension; N18.9 Chronic kidney disease, unspecified; W19.XXXA Unspecified fall, initial encounter; Z79.899 Other long term (current) drug therapy; E03.9 Hypothyroidism, unspecified; K21.9 Gastro-esophageal reflux disease without esophagitis
CPT/HCPCS: 70450; 71046; 72125; 80048; 80177; 80307; 81001; 82077; 82962; 83605; 85025; 87631; 93005; 96361; 96374; 99285